=== PATIENT | female | born 1990 | race Caucasian/White ===

== ENCOUNTER 2019-12-28 15:07 | Emergency (ER) | payer OTHER, SELFPAY ==
[2019-12-28 15:30] VITALS: BP 150/92; PULSE 120; RESP 16; TEMP 36.3; O2SAT 99; BMI 31.0
[2019-12-28 16:15] LABS: Glucose Urine UA >=1000 MG/DL (NEG); Leukocyte Esterase Urine NEG (NEG); Nitrite Urine NEG (NEG); Urine Blood 2+ (NEG); Urine Ketones 15 MG/DL (NEG); Urine Protein 3+ MG/DL (NEG-TRACE)
[2019-12-28 16:24] LABS: Appearance Urine CLOUDY; Color Urine YELLOW
[2019-12-28 16:25] LABS: Bacteria Urine 2+ /LPF; RBC Urine 50-75 /HPF (0); Squamous Epithelial Cell Urine 3+ /LPF; UACC CULT YES; WBC Urine 30-49 /HPF (0-4)
[2019-12-28 16:26] LABS: UPreg QC Valid YES; Urine Pregnancy NEGATIVE (NEGATIVE)
--- NOTE | 2019-12-28 16:39 | ED_ITS ---
HPI - Back Pain/Injury General Chief Complaint: Back Pain/Injury Stated Complaint: back pain Time Seen by Provider: 12/28/19 16:37 Source: patient Mode of arrival: ambulatory Limitations: no limitations History of Present Illness HPI Narrative: patient presents to ED for chronic back pain exacerbation. Patient states pain is across lower back. Patient denies any injury, abdominal pain, nausea, vomiting, dysuria, hematuria, flank pain, fever, chills. Patient states also migraine exacerbation. MD elicited complaint: back pain Related Data Previous Rx's Medication Instructions Recorded naproxen 500 mg PO BID PRN #20 tab 12/28/19 Allergies Allergy/AdvReac Type Severity Reaction Status Date / Time morphine [MORPHINE] Allergy Severe ORAL Verified 12/28/19 15:29 SWELLING Review of Systems Constitutional: Constitutional: Reports as per HPI, Reports no additional constitutional complaints and Reports headache(s) ( History of migraine) Eyes: Eyes: Reports as per HPI and Reports no additional eye complaints ENT: Reports system reviewed and no additional complaints, except as documented, Reports as per HPI and Reports headache(s) ( History of migraine) Cardiovascular: Cardiovascular: Reports as per HPI and Reports no additional cardiovascular complaints Respiratory: Respiratory: Reports as per HPI and Reports no additional respiratory complaints Gastrointestinal: Gastrointestinal: Reports as per HPI and Reports no additional gastrointestinal complaints Genitourinary: Genitourinary: Reports no additional female genitourinary complaints and Reports as per HPI Musculoskeletal: Musculoskeletal: Reports no additional musculoskeletal complaints, Reports as per HPI and Reports back pain Neurologic: Reports system reviewed and no additional complaints, except as documented, Reports as per HPI and Reports headache(s) ( History of migraine) Psychiatric: Psychiatric: Reports no additional psychiatric complaints [facility] Past Medical History Medical History (Updated 12/28/19 @ 17:06 by JOVON Amaral) Back pain Blind right eye Diabetes HTN (hypertension) Social History Social History Smoking Status: Never smoker Use of substances other than those prescribed or required for medical reasons: No Advance Directives: No Advance Directives Information Provided: Yes Physical Exam Vital Signs: Vital Signs: Vital Signs Temp Pulse Resp BP Pulse Ox 12/28/19 17:10 115 H 17 100 12/28/19 15:30 97.4 F 120 H 16 150/92 H 99 Body Mass Index 31.0 Const: General: cooperative, healthy appearing, comfortable, no acute distress, well developed, alert and awake Orientation/consciousness: oriented to person, oriented to place, oriented to time and patient oriented x3 HENMT: Head: Yes normal to inspection and Yes No palpable skull fracture present Eyes: General: appearance normal, both eyes and all related structures Neck: Neck: Yes normal visual inspection and Yes full ROM Chest: Chest palpation & inspection: normal inspection of the chest, normal palpation of entire chest wall and no localized rib tenderness Resp: Effort & Inspection: normal respiratory effort and able to speak in complete sentences Cardio: Jugular venous distension: no JVD Heart sounds: S1 normal heart sound present and S2 normal heart sound present GI: Inspection: Yes normal to inspection and No abdominal wall ecchymosis Palpation (GI): Soft to palpation, not firm, nontender and no guarding Percussion: Yes normal to percussion Auscultation: normal bowel sounds : General: No CVA tenderness and Yes no CVA tenderness Back/Spine/Pelvis: Back: no CVA tenderness, No CVA tenderness and back tenderness ( positive for lumbar muscular tenderness on left and right side) Skin: General skin exam: no rashes or lesions noted Trauma: no lacerations or abrasions Neuro: General: oriented to person, oriented to place, oriented to time, patient oriented x3, gait normal and CN's II-XI intact bilaterally Cranial nerves: Yes CN's II-XII intact bilaterally Extrem: General: Yes normal to inspection and Yes full ROM Psych: Appearance: grossly normal, well kempt and not disheveled Course Course Course Narrative: patient will have UA ordered to rule out UTI. Reevaluation(s) Reevaluation #1: Patient urinalysis showed large amount of blood. Patient was questioned if she is on her menstruation or recently finished her menstruation, and patient denies being on her menstruation. patient states last menstruation was last month. Patient informed this may be kidney stones and will need CT scan abdomen and pelvis to rule out kidney stones, but patient refused and rather be discharged. Patient's plate risk of , sepsis, kidney failure and patient still signed against medical advice. Time: 17:03 MDM - Back Pain/Injury MDM Narrative Medical decision making narrative: back pain Lab Data Labs: Lab Results 12/28/19 Range/Units 16:06 Urine Color YELLOW Urine Appearance CLOUDY Urine pH 6.0 (5.0-8.0) Ur Specific [place] 1.020 (1.005-1.025) Urine Protein 3+ H (NEG-TRACE) MG/DL Urine Glucose (UA) >=1000 H (NEG) MG/DL Urine Ketones 15 (NEG) MG/DL Urine Blood 2+ H (NEG) Urine Nitrite NEG (NEG) Ur Leukocyte Esterase NEG (NEG) Urine RBC 50-75 H (0) /HPF Urine WBC 30-49 H (0-4) /HPF Ur Squamous Epith Cells 3+ /LPF Urine Bacteria 2+ /LPF Urine Test NEGATIVE (NEGATIVE) Discharge Plan Discharge Clinical Impression: Back pain, Migraine Patient Disposition: Left Against Medical Advice Instructions: Back Pain (ED) Additional Instructions: return to the ED immediately for worsening back pain, for pain, fever, chills, nausea, vomiting, hematuria, dysuria, or any other concerning symptoms. Prescriptions: New naproxen 500 mg tablet 500 mg PO BID PRN (Reason: pain) Qty: 20 RF: 0 Stand Alone Forms: Against Medical Advice Interventions: ED Discharge Assessment Last Done: 12/28/19 17:21 Discharge Date/Time: 12/28/19 17:23 Print Language: Divehi
[2019-12-28] MEDS: Ketorolac Tromethamine 60 MG/2 ML VIAL IM (16:47)
[2019-12-28 17:10] VITALS: PULSE 115; RESP 17; O2SAT 100
== END 2019-12-28 17:23 | disposition left against medical advice (07) ==
PROVIDERS: Physician Assistant; Emergency Provider Emergency Medicine
DX: M54.5 Low back pain (principal); G43.909 Migraine, unspecified, not intractable, without status migrainosus; I10 Essential (primary) hypertension; E11.9 Type 2 diabetes mellitus without complications; Z79.899 Other long term (current) drug therapy
CPT/HCPCS: 81001; 81025; 87086; 87088; 87147; 87186; 96372; 99284; J1885

== ENCOUNTER 2020-01-01 14:11 | Outpatient (RCR) | payer OTHER, SELFPAY | END 2020-02-17 08:00 | disposition home health service (06) | LOC: HO.WCC 14:11 | PROVIDERS: Visit Provider Surgery | DX: E10.621 Type 1 diabetes mellitus with foot ulcer (principal); L97.513 Non-pressure chronic ulcer of other part of right foot with necrosis of muscle; E10.65 Type 1 diabetes mellitus with hyperglycemia; Z79.4 Long term (current) use of insulin | CPT/HCPCS: 11043; 11046; 87071; 87147; 87205; 99213 ==

== ENCOUNTER → 2020-02-16 14:13 | Outpatient (BNVA) | payer OTHER, SELFPAY | PROVIDERS: Visit Provider Advanced Practice Midwife | DX: E11.65 Type 2 diabetes mellitus with hyperglycemia (principal); E11.319 Type 2 diabetes mellitus with unspecified diabetic retinopathy without macular edema; Z79.4 Long term (current) use of insulin; Z32.01 Encounter for pregnancy test, result positive; I10 Essential (primary) hypertension | CPT/HCPCS: 81025; 99212 ==

== ENCOUNTER 2020-03-01 14:22 | Inpatient (IN) | payer OTHER, SELFPAY ==
[2020-03-01 15:23] VITALS: BP 198/109; PULSE 110; RESP 19; TEMP 36.7; O2SAT 100; BMI 29.6
--- NOTE | 2020-03-01 15:42 | ED_ITS ---
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 She was admitted at [facility] for plantar foot wound in December and has not had issues with drainage from the toe until yesterday. She denies fever or chills. She states she feels like the foot is throbbing but does not have pain to her foot until nighttime. She is ambulating normally. She states her glucose has been ranging in the 200's, most recently was 61 and she had some juice. Old records reviewed from [facility] admission 01/01-01/07: right foot cellulitis s/p surgical debridement of wound with cultures +MRSA, no osteomyelitis changes on XR, left AMA and was given Rifampin & Bactrim on d/c with plan to f/u with [facility]. complaint: diabetic foot wound Onset (ago): day(s) (2) Location: upper extremity and lower extremity Radiation: non-radiation Severity: moderate Quality: other (throbbing) Pain Consistency: intermittent Relieving factors: none Exacerbating factors: none Associated symptoms: denies other symptoms Treatments prior to arrival: none Related Data Home Medications Medication Instructions Recorded Confirmed insulin lispro 100 unit/mL 0 unit SUBCUT TID 02/16/20 03/01/20 subcutaneous solution acetaminophen 2 tab PO Q6H PRN 03/01/20 03/01/20 albuterol sulfate 2 puff PO Q4-6H PRN 03/01/20 03/01/20 insulin detemir U-100 [Levemir 40 unit SUBCUT BEDTIME 03/01/20 03/01/20 FlexTouch U-100 Insuln] lisinopril 1 tab PO DAILY 03/01/20 03/01/20 Allergies Allergy/AdvReac Type Severity Reaction Status Date / Time morphine [MORPHINE] Allergy Severe ORAL Verified 02/16/20 14:35 SWELLING Review of Systems Review of Systems: Constitutional: No Fever, No Chills ENT/Mouth: No sore throat, No Rhinorrhea, No Swallowing Difficulty Eyes: No Eye Pain, No Swelling, No Redness Cardiovascular: No Chest Pain, No SOB, No Orthopnea, No Edema Respiratory: No Cough, No Sputum, No Wheezing, No dyspnea Gastrointestinal: No Nausea, No Vomiting, No Diarrhea, No abdominal Pain Genitourinary: No Dysuria, No Urinary Frequency, No Hematuria, No vaginal bleeding, No vaginal discharge. Musculoskeletal: + joint pain, No Myalgias Skin: No Skin Lesions, No rash Neuro: No Weakness, + Numbness, No Dizziness, + Headache (chronic migraines) Psych: + Anxiety/Panic, + Depression Heme/Lymph: No Bruising, No Lymphadenopathy Endocrine: No Polyuria, No Polydipsia PMFSH Past Medical History Attestation statement: The following information was validated with the patient. Medical History Asthma Back pain Blind right eye Depression with anxiety Diabetes Diabetic retinopathy Essential hypertension HTN (hypertension) test positive Type 2 diabetes mellitus with hyperglycemia, with long-term current use of insulin Social History Social History (Updated 02/16/20 @ 14:41 by Joshua Carranza [facility]) Alcohol intake: never Smoking Status: Never smoker Advance Directives: No Advance Directives Information Provided: No Gender identity: female Physical Exam Vital Signs: Vital Signs: Last Vital Signs Temp 98.1 F 03/01/20 15:23 Pulse 110 H 03/01/20 15:23 Resp 19 03/01/20 15:23 BP 169/95 H 03/01/20 16:19 Pulse Ox 100 03/01/20 15:23 Body Mass Index 29.6 Appearance: Alert. Oriented X3. No acute distress. Eyes: right eye haziness consistent with blindness history, ENT: Pharynx normal. Neck: Normal inspection. Neck supple. CVS: tachycardic, regular rhythm. Pulses normal. Respiratory: No respiratory distress. Breath sounds normal. Abdomen: somewhat firm and distended, non-tender. no gravid uterus palpable. +BS Skin: Skin warm and dry. Normal skin color. Normal skin turgor. No rashes. Extremities: right 2nd toe is swollen & tender with areas of blackened nectrotic tissue, yellow foul-smelling discharge from below the nailbed. 2 plantar foot wounds with clean bases. 1+ DP pulse, foot is warm, no sensory deficits. Left plantar aspect with white thickened boggy skin at metastarsal head, no discharge or bleeding. Neuro: Oriented X 3. Grossly normal. Ambulates with steady gait Course Course Course Narrative: 29 y/o , currently 8 weeks with poorly controlled DM1 & HTN presenting with toe necrosis and foul smelling odor that started yesterday. BP and HR elevated on arrival. Asymptomatic. Repeat BP improved to 160's without intervention. No fevers. High concern for osteomyelitis and sepsis. IVF and broad spectrum abx ordered - vanco/zosyn with hx MRSA. Patient initially refusing XR but eventually agreed after risks/benefits discussed. Will require admission. Patient is aware. Case was discussed with Dr. Noel - his biggest concern is glucose control with the acute infection. Pending results and workup for plan to admit here vs transfer to [facility] given high risk and complication risk. Reevaluation(s) Reevaluation #1: 4:45 XR shows changes concerning for osteomyelitis. Labs hemolyzed, will repeat. Signed out to Susy PEREZ who will assume care. Medical Decision Making Lab Data Result diagrams: 03/01/20 15:52 03/01/20 15:52 Labs: Lab Results 03/01/20 03/01/20 03/01/20 Range/Units 15:52 15:52 15:52 WBC 6.8 (4.8-10.8) X10*3/uL RBC 3.08 L (4.20-5.50) X10*6/uL Hgb 8.5 L (12.0-16.0) g/dl Hct 25.4 L (37-47) % MCV 82.5 (80-98) fL MCH 27.6 (27.0-33.0) pg MCHC 33.5 (31.0-35.0) g/dl RDW 12.5 (11.0-16.0) % Plt Count 294 (160-400) X10*3/uL MPV 11.3 (9.4-12.3) fL Immature Gran % (Auto) 0.9 H (0.0-0.4) % Neut % (Auto) 77.3 H (45-73) % Lymph % (Auto) 14.5 L (20-40) % [place] % (Auto) 6.2 (2-11) % Eos % (Auto) 1.0 (0-4) % Baso % (Auto) 0.1 (0-2) % Lymph # (Auto) 1.0 L (1.2-4.9) X10*3/uL [place] # (Auto) 0.4 (0.1-1.2) X10*3/uL Eos # (Auto) 0.1 (0.0-0.4) X10*3/uL Baso # (Auto) 0.0 (0.0-0.2) X10*3/uL Abs Immat Gran (auto) 0.06 H (0.00-0.03) X10*3/uL Absolute Neuts (auto) 5.2 (2.0-8.3) X10*3/uL Absolute Nucleated RBC 0.000 (0.0-0.012) X10*3/uL Nucleated RBC % (auto) 0.0 (0.0-0.2) /100WBC PT (10.8-13.0) SEC INR (0.9-1.1) Sodium Cancelled Potassium Cancelled Chloride Cancelled Carbon Dioxide Cancelled Anion Gap Cancelled BUN Cancelled Creatinine Cancelled Estim Creat Clear Calc Cancelled Estimated GFR Cancelled Random Glucose Cancelled Lactic Acid 0.9 (0.5-2.0) mmol/L Calcium Cancelled Magnesium Total Bilirubin Direct Bilirubin AST ALT Alkaline Phosphatase C-Reactive Protein Total Protein Albumin Beta HCG, Quant Cancelled Urine Color Urine Appearance Urine pH (5.0-8.0) Ur Specific [place] (1.005-1.025) Urine Protein (NEG-TRACE) MG/DL Urine Glucose (UA) (NEG) MG/DL Urine Ketones (NEG) MG/DL Urine Blood (NEG) Urine Nitrite (NEG) Ur Leukocyte Esterase (NEG) Urine RBC (0) /HPF Urine WBC (0-4) /HPF Ur Squamous Epith Cells /LPF Urine Bacteria /LPF Urine Test (NEGATIVE) COVID-19 (CARO) (Negative) COVID-19 Clin Com 03/01/20 03/01/2003/01/21 Range/Units 15:52 15:53 16:06 WBC (4.8-10.8) X10*3/uL RBC (4.20-5.50) X10*6/uL Hgb (12.0-16.0) g/dl Hct (37-47) % MCV (80-98) fL MCH (27.0-33.0) pg MCHC (31.0-35.0) g/dl RDW (11.0-16.0) % Plt Count (160-400) X10*3/uL MPV (9.4-12.3) fL Immature Gran % (Auto) (0.0-0.4) % Neut % (Auto) (45-73) % Lymph % (Auto) (20-40) % [place] % (Auto) (2-11) % Eos % (Auto) (0-4) % Baso % (Auto) (0-2) % Lymph # (Auto) (1.2-4.9) X10*3/uL [place] # (Auto) (0.1-1.2) X10*3/uL Eos # (Auto) (0.0-0.4) X10*3/uL Baso # (Auto) (0.0-0.2) X10*3/uL Abs Immat Gran (auto) (0.00-0.03) X10*3/uL Absolute Neuts (auto) (2.0-8.3) X10*3/uL Absolute Nucleated RBC (0.0-0.012) X10*3/uL Nucleated RBC % (auto) (0.0-0.2) /100WBC PT 12.5 (10.8-13.0) SEC INR 1.1 (0.9-1.1) Sodium Potassium Chloride Carbon Dioxide Anion Gap BUN Creatinine Estim Creat Clear Calc Estimated GFR Random Glucose Lactic Acid (0.5-2.0) mmol/L Calcium Magnesium Cancelled Total Bilirubin Cancelled Direct Bilirubin Cancelled AST Cancelled ALT Cancelled Alkaline Phosphatase Cancelled C-Reactive Protein Cancelled Total Protein Cancelled Albumin Cancelled Beta HCG, Quant Urine Color YELLOW Urine Appearance CLEAR Urine pH 6.5 (5.0-8.0) Ur Specific [place] 1.020 (1.005-1.025) Urine Protein 3+ H (NEG-TRACE) MG/DL Urine Glucose (UA) 100 H (NEG) MG/DL Urine Ketones NEG (NEG) MG/DL Urine Blood 3+ H (NEG) Urine Nitrite NEG (NEG) Ur Leukocyte Esterase NEG (NEG) Urine RBC 5-9 H (0) /HPF Urine WBC 0 (0-4) /HPF Ur Squamous Epith Cells 1+ /LPF Urine Bacteria 1+ /LPF Urine Test POSITIVE H (NEGATIVE) COVID-19 (CARO) (Negative) COVID-19 Clin Com 03/01/20 Range/Units 16:07 WBC (4.8-10.8) X10*3/uL RBC (4.20-5.50) X10*6/uL Hgb (12.0-16.0) g/dl Hct (37-47) % MCV (80-98) fL MCH (27.0-33.0) pg MCHC (31.0-35.0) g/dl RDW (11.0-16.0) % Plt Count (160-400) X10*3/uL MPV (9.4-12.3) fL Immature Gran % (Auto) (0.0-0.4) % Neut % (Auto) (45-73) % Lymph % (Auto) (20-40) % [place] % (Auto) (2-11) % Eos % (Auto) (0-4) % Baso % (Auto) (0-2) % Lymph # (Auto) (1.2-4.9) X10*3/uL [place] # (Auto) (0.1-1.2) X10*3/uL Eos # (Auto) (0.0-0.4) X10*3/uL Baso # (Auto) (0.0-0.2) X10*3/uL Abs Immat Gran (auto) (0.00-0.03) X10*3/uL Absolute Neuts (auto) (2.0-8.3) X10*3/uL Absolute Nucleated RBC (0.0-0.012) X10*3/uL Nucleated RBC % (auto) (0.0-0.2) /100WBC PT (10.8-13.0) SEC INR (0.9-1.1) Sodium Potassium Chloride Carbon Dioxide Anion Gap BUN Creatinine Estim Creat Clear Calc Estimated GFR Random Glucose Lactic Acid (0.5-2.0) mmol/L Calcium Magnesium Total Bilirubin Direct Bilirubin AST ALT Alkaline Phosphatase C-Reactive Protein Total Protein Albumin Beta HCG, Quant Urine Color Urine Appearance Urine pH (5.0-8.0) Ur Specific [place] (1.005-1.025) Urine Protein (NEG-TRACE) MG/DL Urine Glucose (UA) (NEG) MG/DL Urine Ketones (NEG) MG/DL Urine Blood (NEG) Urine Nitrite (NEG) Ur Leukocyte Esterase (NEG) Urine RBC (0) /HPF Urine WBC (0-4) /HPF Ur Squamous Epith Cells /LPF Urine Bacteria /LPF Urine Test (NEGATIVE) COVID-19 (CARO) Negative (Negative) COVID-19 Clin Com See Note Discharge Plan Discharge Clinical Impression: Osteomyelitis Qualifiers: Osteomyelitis type: unspecified type Osteomyelitis location: foot Laterality: right Qualified Code(s): M86.9 - Osteomyelitis, unspecified Prescriptions: No Action acetaminophen 500 mg tablet 2 tab PO Q6H PRN (Reason: Pain) RF: 0 lisinopril 5 mg tablet 1 tab PO DAILY RF: 0 albuterol sulfate 90 mcg/actuation HFA aerosol inhaler 2 puff PO Q4-6H PRN (Reason: Shortness Of Breath) RF: 0 Levemir FlexTouch U-100 Insuln 100 unit/mL (3 mL) insulin pen 40 unit subcut BEDTIME RF: 0 insulin lispro [Humalog U-100 Insulin] 100 unit/mL solution 0 unit subcut TID RF: 0
--- NOTE | 2020-03-01 15:48 | XR_ITS ---
EXAMINATION: XR FOOT, RIGHT CLINICAL INFORMATION: Worsening diabetic foot wound. Assess for osteomyelitis. COMPARISON: Previous x-ray September 2018 TECHNIQUE: AP, lateral, and oblique views of the right foot. FINDINGS: There is transmetatarsal amputation of the great toe. There is adjacent air in the soft tissues, some erosive changes and abnormal bone loss of the surgical margin questionable for osteomyelitis. There is amputation of the fifth toe. There is periarticular osteopenia at the third and fourth MTP joints. There is increasing irregularity of the fourth metatarsal head. Findings are questionable for osteomyelitis or septic arthritis as well. There are degenerative changes of the midfoot. There is a small amount of air seen adjacent to the medial second MTP joint. There is air seen in the plantar midfoot at the level of the metatarsal heads. There is diffuse soft tissue swelling of the midfoot. No radiopaque soft tissue foreign body is seen. XR/XR foot RT min 3V IMPRESSION: Postsurgical change following transmetatarsal amputation of the first toe. Adjacent air in the soft tissues and bone destruction and irregularity at the surgical margin of the remaining shaft of the first metatarsal bone questionable for osteomyelitis. Osteopenia at the third and fourth MTP joints and irregularity of the fourth metatarsal head questionable for septic arthritis/osteomyelitis. Postsurgical change following amputation of the fifth toe.
[2020-03-01 16:13] LABS: Basophils Percent Auto 0.1 % (0-2); Eosinophils Absolute Auto 0.1 X10*3/uL (0.0-0.4); Hematocrit 25.4 % (37-47); Hemoglobin 8.5 g/dl (12.0-16.0); Imm Gran Abs Auto 0.06 X10*3/uL (0.00-0.03); Imm Gran Pct Auto 0.9 % (0.0-0.4); Lymphocytes Percent Auto 14.5 % (20-40); MANUAL DIFF FLAG NO; Mean Corpuscular HGB Conc 33.5 g/dl (31.0-35.0); Mean Corpuscular Hemoglobin 27.6 pg (27.0-33.0); Mean Corpuscular Volume 82.5 fL (80-98); Mean Platelet Volume 11.3 fL (9.4-12.3); Monocytes Absolute Auto 0.4 X10*3/uL (0.1-1.2); Monocytes Percent Auto 6.2 % (2-11); Neutrophils Absolute Auto 5.2 X10*3/uL (2.0-8.3); Neutrophils Percent Auto 77.3 % (45-73); Platelet Count 294 X10*3/uL (160-400); Red Blood Count 3.08 X10*6/uL (4.20-5.50); Red Cell Distribution Width 12.5 % (11.0-16.0); White Blood Count 6.8 X10*3/uL (4.8-10.8)
[2020-03-01] MEDS: 0.9 % Sodium Chloride 1,000 ML 999 ML IVCONT (16:17)
[2020-03-01 16:19] VITALS: BP 169/95
[2020-03-01 16:19] LABS: Glucose Urine UA 100 MG/DL (NEG); Leukocyte Esterase Urine NEG (NEG); Nitrite Urine NEG (NEG); PH 6.5 (5.0-8.0); Urine Blood 3+ (NEG); Urine Ketones NEG (NEG); Urine Protein 3+ MG/DL (NEG-TRACE)
[2020-03-01 16:21] LABS: INTERNATIONAL NORM RATIO 1.1 (0.9-1.1); Prothrombin Time 12.5 SEC (10.8-13.0)
[2020-03-01 16:21] LABS: Appearance Urine CLEAR; Color Urine YELLOW; UPreg QC Valid YES; Urine Pregnancy POSITIVE (NEGATIVE)
[2020-03-01 16:29] LABS: Bacteria Urine 1+ /LPF; Squamous Epithelial Cell Urine 1+ /LPF; WBC Urine 0 /HPF (0-4)
[2020-03-01 16:30] LABS: Lactic Acid 0.9 mmol/L (0.5-2.0)
[2020-03-01 16:31] LABS: COVID-19 Test Negative (Negative)
[2020-03-01] MEDS: Piperacillin Sodium/Tazobactam 3.375 GM in 0.9 % Sodium Chloride 50 ML IV (17:14)
[2020-03-01 17:20] LABS: Estimated Average Glucose 258 mg/dL; Hemoglobin A1c % 10.6 %
[2020-03-01 17:23] VITALS: BP 165/98; PULSE 108; RESP 16; TEMP 37.1; O2SAT 100
--- NOTE | 2020-03-01 17:24 | PM.EVENT ---
Event Note Date of Service: 03/01/20 Event Note: Addendum to H and P by Mid-level Provider I saw and examined the patient and participated in the brian portion of the E/M service. I agree with the history and exam as documented by NUCLEAR MEDICINE SPECIALIST. Patient likely has osteomylitis of the foot due to diabetes. Will admit for IV Abx and vascular work up, [employer] eval. Otherwise, I agree with assessment and plan as outlined in the H and P. late entry note for 03/01/20
[2020-03-01] MEDS: vancomycin HCL 1,000 MG in 0.9 % Sodium Chloride 250 ML 270 MG IV (17:56)
--- NOTE | 2020-03-01 18:01 | PC.NURSE ---
ZOSYN COMPLETE. YAMILET 1GM FLORIDALMA.
[2020-03-01 18:32] LABS: Erythrocyte Sedimentation Rate 121 MM/HR (0-20)
--- NOTE | 2020-03-01 18:53 | P.HPHOSP_ITS ---
History of Present Illness Date of Service: 03/01/20 <Tawny Taylor NP - Last Filed: 03/01/20 20:35> Chief Complaint: Foot wound <Tawny Taylor NP - Last Filed: 03/01/20 20:35> 29-year-old woman, who is 8 weeks , presenting to the ER with complaints of worsening foot wound. She has a history of type 1 diabetes and chronic foot wounds with history of osteomyelitis and right foot transmetatarsal amputation. She has diabetic retinopathy, neuropathy, she is blind in the right eye. She reported [facility] however she has not been in about 3 weeks. She reports that she had taken off her socks and felt like her foot was malodorous and her told her that she had some black areas of discoloration on her toe lose and dorsal aspect of her right foot. She did have some clear drainage in the right foot with clear drainage and multiple areas of eschar. She has got 3 plantar wounds and what appears to be a fresh skin tear to the plantar aspect of her left foot. She denied fever, chills, nausea, vomiting, diarrhea. <Tawny Taylor NP - Last Filed: 03/01/20 20:35> Review of Systems Review of Systems: Denies any recent fever chills or decrease in appetite respiratory denies any shortness of breath coverage production cardiovascular is adjustment of any PND or edema gastrointestinal denies any dysphagia abdominal pain nausea vomiting or diarrhea genitourinary denies any dysuria frequency or hematuria neuropsych denies any weakness or seizures all other systems reviewed are negative <Tawny Taylor NP - Last Filed: 03/01/20 20:35> [facility] Medical History: Medical History Asthma Back pain Blind right eye Depression with anxiety Diabetes Diabetic retinopathy Essential hypertension HTN (hypertension) test positive Type 2 diabetes mellitus with hyperglycemia, with long-term current use of insulin <Tawny Taylor NP - Last Filed: 03/01/20 20:35> Family History: Family History Mother Coronary artery disease Myocardial infarction Stroke Diabetes mellitus Father Myocardial infarction <Tawny Taylor NP - Last Filed: 03/01/20 20:35> Surgical History: Surgical History History of transmetatarsal amputation of foot <Tawny Taylor NP - Last Filed: 03/01/20 20:35> Social History: Social History Household Members: Significant Other Housing: Apartment Alcohol intake: never Smoking Status: Never smoker service: No Gender identity: female <Tawny Taylor NP - Last Filed: 03/01/20 20:35> Meds Allergies/Adverse reactions: Allergies Allergy/AdvReac Type Severity Reaction Status Date / Time morphine [MORPHINE] Allergy Severe ORAL Verified 02/16/20 14:35 SWELLING <Tawny Taylor NP - Last Filed: 03/01/20 20:35> Home medications: Home Medications Medication Instructions Recorded Confirmed Type insulin lispro 100 unit/mL 0 unit SUBCUT TID 02/16/20 03/01/20 History subcutaneous solution acetaminophen 2 tab PO Q6H PRN 03/01/20 03/01/20 History albuterol sulfate 2 puff PO Q4-6H PRN 03/01/20 03/01/20 History insulin detemir U-100 [Levemir 40 unit SUBCUT BEDTIME 03/01/20 03/01/20 History FlexTouch U-100 Insuln] lisinopril 1 tab PO DAILY 03/01/20 03/01/20 History <Tawny Taylor NP - Last Filed: 03/01/20 20:35> Physical Exam Vital Signs and Narrative: Vital Signs: Last Vital Signs Temp 98.7 F 03/01/20 17:23 Pulse 108 H 03/01/20 17:23 Resp 16 03/01/20 17:23 BP 165/98 H 03/01/20 17:23 Pulse Ox 100 03/01/20 17:23 Body Mass Index 29.6 <Tawny Taylor NP - Last Filed: 03/01/20 20:35> Appearing in no acute distress head is normocephalic atraumatic lung sounds normal expansion heart regular rate rhythm abdomen is soft, nontender neuro patient is alert x3, no focal deficits <Tawny Taylor NP - Last Filed: 03/01/20 20:35> Results Labs CBC and Chem 7: : 03/02/20 09:06 03/02/20 09:06 <Tawny Taylor, P[employer]ER - Last Filed: 03/01/20 20:35> Labs: Laboratory Results - last 24 hr 03/01/20 03/01/20 03/01/20 15:52 15:52 15:52 MCV 82.5 MCH 27.6 MCHC 33.5 RDW 12.5 Plt Count 294 MPV 11.3 Immature Gran % (Auto) 0.9 H Neut % (Auto) 77.3 H Lymph % (Auto) 14.5 L [place] % (Auto) 6.2 Eos % (Auto) 1.0 Baso % (Auto) 0.1 Lymph # (Auto) 1.0 L [place] # (Auto) 0.4 Eos # (Auto) 0.1 Baso # (Auto) 0.0 Abs Immat Gran (auto) 0.06 H Absolute Neuts (auto) 5.2 Absolute Nucleated RBC 0.000 Nucleated RBC % (auto) 0.0 ESR PT INR Anion Gap Cancelled Estim Creat Clear Calc Cancelled Estimated GFR Cancelled Random Glucose Cancelled Estimat Average Glucose Hemoglobin A1c % Lactic Acid 0.9 Calcium Cancelled Magnesium Total Bilirubin Direct Bilirubin AST ALT Alkaline Phosphatase C-Reactive Protein Total Protein Albumin Beta HCG, Quant Cancelled Urine Color Urine Appearance Urine pH Ur Specific [place] Urine Protein Urine Glucose (UA) Urine Ketones Urine Blood Urine Nitrite Ur Leukocyte Esterase Urine RBC Urine WBC Ur Squamous Epith Cells Urine Bacteria Urine Test COVID-19 (CARO) COVID-19 Clin Com 03/01/20 03/01/20 03/01/20 15:52 15:52 15:53 MCV MCH MCHC RDW Plt Count MPV Immature Gran % (Auto) Neut % (Auto) Lymph % (Auto) [place] % (Auto) Eos % (Auto) Baso % (Auto) Lymph # (Auto) [place] # (Auto) Eos # (Auto) Baso # (Auto) Abs Immat Gran (auto) Absolute Neuts (auto) Absolute Nucleated RBC Nucleated RBC % (auto) ESR 121 H PT 12.5 INR 1.1 Anion Gap Estim Creat Clear Calc Estimated GFR Random Glucose Estimat Average Glucose Hemoglobin A1c % Lactic Acid Calcium Magnesium Cancelled Total Bilirubin Cancelled Direct Bilirubin Cancelled AST Cancelled ALT Cancelled Alkaline Phosphatase Cancelled C-Reactive Protein Cancelled Total Protein Cancelled Albumin Cancelled Beta HCG, Quant Urine Color Urine Appearance Urine pH Ur Specific [place] Urine Protein Urine Glucose (UA) Urine Ketones Urine Blood Urine Nitrite Ur Leukocyte Esterase Urine RBC Urine WBC Ur Squamous Epith Cells Urine Bacteria Urine Test COVID-19 (CARO) COVID-19 Clin Com 03/01/20 03/01/20 03/01/20 16:06 16:07 16:42 MCV MCH MCHC RDW Plt Count MPV Immature Gran % (Auto) Neut % (Auto) Lymph % (Auto) [place] % (Auto) Eos % (Auto) Baso % (Auto) Lymph # (Auto) [place] # (Auto) Eos # (Auto) Baso # (Auto) Abs Immat Gran (auto) Absolute Neuts (auto) Absolute Nucleated RBC Nucleated RBC % (auto) ESR PT INR Anion Gap Estim Creat Clear Calc Estimated GFR Random Glucose Estimat Average Glucose 258 Hemoglobin A1c % 10.6 Lactic Acid Calcium Magnesium Total Bilirubin Direct Bilirubin AST ALT Alkaline Phosphatase C-Reactive Protein Total Protein Albumin Beta HCG, Quant Urine Color YELLOW Urine Appearance CLEAR Urine pH 6.5 Ur Specific [place] 1.020 Urine Protein 3+ H Urine Glucose (UA) 100 H Urine Ketones NEG Urine Blood 3+ H Urine Nitrite NEG Ur Leukocyte Esterase NEG Urine RBC 5-9 H Urine WBC 0 Ur Squamous Epith Cells 1+ Urine Bacteria 1+ Urine Test POSITIVE H COVID-19 (CARO) Negative COVID-19 Clin Com See Note <Tawny Taylor NP - Last Filed: 03/01/20 20:35> Imaging Radiologist's Impressions: Impressions Foot X-Ray 03/01/20 15:48 IMPRESSION: Postsurgical change following transmetatarsal amputation of the first toe. Adjacent air in the soft tissues and bone destruction and irregularity at the surgical margin of the remaining shaft of the first metatarsal bone questionable for osteomyelitis. Osteopenia at the third and fourth MTP joints and irregularity of the fourth metatarsal head questionable for septic arthritis/osteomyelitis. Postsurgical change following amputation of the fifth toe. <Tawny Taylor NP - Last Filed: 03/01/20 20:35> Assessment and Plan (1) Osteomyelitis: Qualifiers: Laterality: right Osteomyelitis location: foot Osteomyelitis type: unspecified type Qualified Code(s): M86.9 - Osteomyelitis, unspecified <Tawny Taylor NP - Last Filed: 03/01/20 20:35> Problem details: She has infected second toe,osteomyelitis concern She is also <Tawny Taylor NP - Last Filed: 03/01/20 20:35> Status: Acute <Tawny Taylor NP - Last Filed: 03/01/20 20:35> 29-year-old woman, who is 8 weeks admitted with likely osteomyelitis with history of type 1 diabetes. Osteomyelitis. Vancomycin and zosyn. ID consult. Vascular surgery consult. Follow cultures. Diabetes. Sliding scale, long acting insulin. Asthma. Albuterol as needed. Hypertension. Stable. Continue Lisinopril. DVT prophylaxis with mechanical compression boots. Discussed with Dr. Blanton Full code. <Tawny Taylor NP - Last Filed: 03/01/20 20:35>
[2020-03-01 20:22] VITALS: BP 123/64; PULSE 104; RESP 17; TEMP 36.9; O2SAT 99
--- NOTE | 2020-03-01 20:30 | PC.NURSE ---
VITALS CHANGED TO Q SHIFT BY HOSPITALIST.
[2020-03-01 20:43] LABS: Alanine Aminotransferase 13 U/L (0-31); Albumin Level 2.2 g/dL (3.5-5.0); Alkaline Phosphatase 136 U/L (39-117); Aspartate Amino Transferase 18 U/L (5-31); Bilirubin Direct < 0.2 mg/dL (0.0-0.5); Bilirubin Total < 0.2 mg/dL (0.0-1.0); Magnesium 1.9 mg/dL (1.6-2.6); Total Protein 5.3 g/dL (6.5-8.0)
[2020-03-01 20:49] LABS: Anion Gap 9 (12-20); Blood Urea Nitrogen 19 mg/dL (9-16); C Reactive Protein 7.83 mg/dL (< or = 0.50); Carbon Dioxide 25 mmol/L (22-29); Chloride 106 mmol/L (96-108); Creatinine Clr Calc Pharmacy 111.8; Estimated Glomerular Filt Rate > 60; Glucose Random 131 mg/dL (60-115); Magnesium 1.9 mg/dL (1.6-2.6); Potassium 3.7 mmol/l (3.3-5.1); Sodium 136 mmol/L (135-145)
[2020-03-01 20:55] LABS: HCG Quantitative 4739 mIU/mL
[2020-03-01] MEDS: Acetaminophen 325 MG TABLET 650 MG PO (20:55)
[2020-03-01 21:29] LABS: Glucose, Whole Blood 125 mg/dL (60-115)
[2020-03-01] MEDS: Insulin Glargine,Hum.rec.anlog 100 UNIT/ML 10 ML VIAL 28 UNIT SUBCUT (22:16)
[2020-03-02] VITALS (7 sets, daily range): BP systolic 134–177; BP diastolic 71–87; PULSE 99–109; RESP 15–19; TEMP 36.2–36.9; O2SAT 95–100
--- NOTE | 2020-03-02 | US_ITS ---
EXAMINATION: FIRST TRIMESTER OB ULTRASOUND CLINICAL INFORMATION: Vaginal bleeding COMPARISON: None TECHNIQUE: Transabdominal first trimester OB ultrasound FINDINGS: The uterus measures 10 x 6.5 x 7.2 cm in length. There is an intrauterine gestational sac. [place]ack-rump length measures 0.2 cm suggesting gestational age of 5 weeks 6 days with estimated date of delivery of 10/27/2020. This is significantly behind date from LMP. There is a low heart rate of 60 bpm. There is a yolk sac. There are nabothian cysts in the cervix. The right maternal ovary is slightly enlarged, measures 4 x 2.4 x 5.6 cm and contains a 1.6 x 1.8 x 1.9 cm complex cyst with thick wall probably representing a corpus luteum. The left ovary measures 2.9 x 1.9 x 3.1 cm and is normal-appearing. There is a small amount of fluid in the pelvis. US/US OB <= 14 weeks fetus IMPRESSION: Single viable intrauterine . From today's measurements, gestational age is estimated at 5 weeks 6 days with estimated date of delivery of 10/27/2020. There is a low heart rate of 60 bpm. Slightly enlarged right ovary with 1.8 x 1.6 x 1.9 cm complex cyst probably representing a corpus luteum and small amount of fluid in the pelvis.
--- NOTE | 2020-03-02 | US_ITS ---
EXAMINATION: Transabdominal and transvaginal first trimester OB ultrasound. Transvaginal exam was performed for better visualization of the gestational sac. Please see transabdominal report for findings. EXAMINATION: NONINVASIVE ASSESSMENT OF THE ARTERIES OF BOTH LOWER EXTREMITIES WITH PVR EXAM AND BILATERAL LOWER EXTREMITY DUPLEX CLINICAL INFORMATION: Nonhealing ulcer TECHNIQUE: Ankle pulse volume recordings, ankle pressure measurements and ankle brachial indices were obtained of the lower extremity arterial system bilaterally in addition to duplex Doppler techniques with wave form analysis and measurement of velocities in the common femoral, profunda femoral, superficial femoral, popliteal and tibial arteries. The study was performed only at rest. COMPARISON: None FINDINGS: a) AT REST: RIGHT LE. The right ankle-brachial index is: 1.2 2. Right ankle pressure: normal. 3. Right ankle PVR waveform: normal. 4. Right direct duplex Doppler findings: Normal * Common femoral artery: 142 cm/s, Diastolic flow reversal: Yes * Superficial femoral artery (proximal, mid, distal): 115, 137 and 111 cm/s, Diastolic flow reversal: Yes * Popliteal artery: 108 cm/s, Diastolic flow reversal: Yes * Posterior tibial artery: 112 cm/s, Diastolic flow reversal: Yes LEFT LE. The left ankle-brachial index is: 1.1 2. Left ankle pressure: normal. 3. Left ankle PVR waveform: normal. 4. Left direct duplex Doppler findings: Turbulent flow in the left popliteal artery. * Common femoral artery: 131 cm/s, Diastolic flow reversal: Yes * Superficial femoral artery (proximal, mid, distal): 99, 121 and 127 cm/s, Diastolic flow reversal: Yes * Popliteal artery: 135 cm/s, Diastolic flow reversal: Yes * Posterior tibial artery: 109 cm/s, Diastolic flow reversal: Yes MAYA Reference: * >0.97-1.25 = normal - no significant arterial disease * 0.75-0.96 = mild peripheral arterial disease * 0.5-0.74 = moderate peripheral arterial disease * <0.50 = severe peripheral arterial disease There is bilateral inguinal lymphadenopathy. US/US arterial duplex LE BI IMPRESSION: There is no evidence of any hemodynamically significant lower extremity arterial disease by pressure, waveform or duplex Doppler criteria at rest. The right MAYA is 1.2 and the left MAYA is 1.1.
--- NOTE | 2020-03-02 01:12 | PC.NURSE ---
REPORT GIVEN TO ALICE BETH
[2020-03-02] MEDS: vancomycin HCL 1,000 MG in 0.9 % Sodium Chloride 250 ML 270 MG IV ×2 (07:17→18:41)
[2020-03-02] MEDS: Acetaminophen 325 MG TABLET 650 MG PO (07:20)
[2020-03-02] MEDS: ondansetron HCL 4 MG/2 ML VIAL IVPUSH (07:21)
--- NOTE | 2020-03-02 08:10 | PC.NURSE ---
nurse to nurse given to foster (rn), pt aware of plan of care for admission to hosp.
[2020-03-02 08:51] LABS: Glucose, Whole Blood 110 mg/dL (60-115)
[2020-03-02] MEDS: 0.9 % Sodium Chloride Flush 3 ML SYRINGE IVFLUSH ×3 (08:56→22:03)
[2020-03-02] MEDS: lisinopriL 5 MG TABLET PO (08:56)
[2020-03-02 09:25] LABS: MANUAL DIFF FLAG NO
[2020-03-02 09:29] LABS: Basophils Percent Auto 0.2 % (0-2); Eosinophils Absolute Auto 0.1 X10*3/uL (0.0-0.4); Eosinophils Percent Auto 1.7 % (0-4); Hemoglobin 7.3 g/dl (12.0-16.0); Imm Gran Abs Auto 0.02 X10*3/uL (0.00-0.03); Imm Gran Pct Auto 0.3 % (0.0-0.4); Lymphocytes Absolute Auto 0.8 X10*3/uL (1.2-4.9); Lymphocytes Percent Auto 12.6 % (20-40); Mean Corpuscular HGB Conc 33.2 g/dl (31.0-35.0); Mean Corpuscular Hemoglobin 27.2 pg (27.0-33.0); Mean Corpuscular Volume 82.1 fL (80-98); Mean Platelet Volume 10.8 fL (9.4-12.3); Monocytes Absolute Auto 0.5 X10*3/uL (0.1-1.2); Monocytes Percent Auto 7.5 % (2-11); Neutrophils Absolute Auto 4.7 X10*3/uL (2.0-8.3); Neutrophils Percent Auto 77.7 % (45-73); Platelet Count 237 X10*3/uL (160-400); Red Blood Count 2.68 X10*6/uL (4.20-5.50); Red Cell Distribution Width 12.6 % (11.0-16.0)
[2020-03-02 09:57] LABS: Anion Gap 10 (12-20); Blood Urea Nitrogen 17 mg/dL (9-16); Carbon Dioxide 22 mmol/L (22-29); Chloride 106 mmol/L (96-108); Estimated Glomerular Filt Rate > 60; Glucose Random 113 mg/dL (60-115); Potassium 3.9 mmol/l (3.3-5.1); Sodium 134 mmol/L (135-145)
[2020-03-02] MEDS: Piperacillin Sodium/Tazobactam 3.375 GM in 0.9 % Sodium Chloride 50 ML IV ×3 (10:03→22:02)
[2020-03-02 10:11] LABS: Calcium 7.1 mg/dL (8.4-10.2)
--- NOTE | 2020-03-02 10:18 | P.PNIM_ITS ---
Subjective Subjective Date of Service: 03/02/20 Interval History: Seen in f/u for diabetic foot ulcer/cellulitis..No change. Nursing report vaginal bleeding when she wipes, she is 8 week pregant Review of Systems no fever no pain in foot vaginal bleeding Physical Exam Vital Signs: Vital Signs: Last Vital Signs Temp 97.6 F 03/02/20 08:00 Pulse 99 03/02/20 08:56 Resp 18 03/02/20 08:00 BP 134/75 03/02/20 08:56 Pulse Ox 98 03/02/20 08:00 Body Mass Index 29.6 Const: General: cooperative and comfortable Resp: Effort & Inspection: normal respiratory effort and able to speak in complete sentences Cardio: Rate: regular rate Heart sounds: S1 normal heart sound present and S2 normal heart sound present Skin: Other: Diabetic foot ulcers--See Imagges from H and P of 03/01 Objective Data Current Medications Generic Name Dose Route Start Last Admin Trade Name Freq PRN Reason Stop Dose Admin Acetaminophen 650 mg 03/01/20 20:03 03/02/20 07:20 Acetaminophen 325 Mg Tablet PO 650 mg Q6H PRN Administration Pain, Mild (Pain Scale 1-3) Vancomycin HCl 1,000 mg/ 270 mls @ 270 mls/hr 03/02/20 06:00 03/02/20 09:46 Sodium Chloride IV Infused Q12H VASILE Infusion Piperacillin Sod/Tazobactam 50 mls @ 100 mls/hr 03/02/20 09:00 03/02/20 10:03 Sod 3.375 gm/ Sodium Chloride IV 100 mls/hr Q8H VASILE Administration Insulin Glargine 28 unit 03/02/20 21:00 03/01/20 22:16 Insulin Glargine,Hum.Rec.Anlog 100 Unit/Ml 10 Ml Vial SUBCUT 28 unit BEDTIME VASILE Administration Insulin Human Lispro 0 unit 03/02/20 08:01 03/02/20 09:43 Insulin Lispro 100 Unit/Ml 3 Ml Vial SUBCUT Not Given QIDACHS [facility] Protocol Lisinopril 5 mg 03/02/20 09:00 03/02/20 08:56 Lisinopril 5 Mg Tablet PO 5 mg DAILY VASILE Administration Protocol Ondansetron HCl 4 mg 03/01/20 20:03 03/02/20 07:21 Ondansetron Hcl 4 Mg/2 Ml Vial IVPUSH 4 mg Q8H PRN Administration Nausea and Vomiting Pharmacy Consult 1 each 03/01/20 15:37 Consult Rx Perform Med Rec MISCELLANE ONCE PRN Consult order Pharmacy Consult 1 each 03/01/20 15:37 Consult Rx Vancomycin Dosing MISCELLANE DAILY PRN Consult order Sodium Chloride 3 ml 03/02/20 00:00 03/02/20 08:56 0.9 % Sodium Chloride Flush 3 Ml Syringe IVFLUSH 3 ml QSHIFT VASILE Administration Labs CBC & Chem 7: 03/02/20 09:06 03/02/20 09:06 Microbiology Microbiology Results: Microbiology 03/01/20 16:23 Toe Right Second Routine Culture - Preliminary Culture in progress. Assessment and Plan (1) Osteomyelitis: Status: Acute Assessment and Plan: 29-year-old woman, who is 8 weeks admitted with likely osteomyelitis with history of type 1 diabetes. Diabetic foot ulcer/Osteomyelitis. -Vancomycin and zosyn. -ID consult. -Vascular surgery consult. Follow cultures. Diabetes. Sliding scale, long acting insulin. Asthma. Albuterol as needed. Hypertension. Stable. Continue Lisinopril. Anemia--likely anemia of chronic disease, sligth drop will keep eye on it. ? Vag bleeding/8 month --PATIENT ACCOUNTS SPECIALIST consult DVT prophylaxis with mechanical compression boots.
--- NOTE | 2020-03-02 10:44 | P.EN_ITS ---
Event Note Date of Service: 03/02/20 Event Note: Full consult dictated. Patient will need transmetatarsal amputati on. Await noninvasive arterial testing and OB evaluation.
--- NOTE | 2020-03-02 10:44 | PM.EVENT ---
Event Note Date of Service: 03/02/20 Event Note: Full consult dictated. Patient will need transmetatarsal amputation. Await noninvasive arterial testing and OB evaluation.
--- NOTE | 2020-03-02 10:59 | MHC.CLN ---
will start Kike and Glucerna BID to support wound healing
--- NOTE | 2020-03-02 11:19 | PC.NURSE ---
0940- Pt noted to having small amount of vaginal bleeding. Blood noted when wiped, and visible in toilet. Dr. Balnton made aware. OB consult placed. Awaiting consult. Will continue to monitor.
--- NOTE | 2020-03-02 11:41 | CONS_ITS ---
DATE OF SERVICE: 03/02/2020 REASON FOR CONSULTATION: Nonhealing right foot wound. HISTORY OF PRESENT ILLNESS: A 29-year-old woman 8 weeks , who is an uncontrolled diabetic, has had multiple amputations. She reports that [facility] and she has not followed up in approximately 3 weeks. She reports that she had taken off her socks, had a malodorous discharge. She now presents for vascular evaluation. PAST MEDICAL HISTORY: Significant for asthma, back pain, blind right eye, depression, diabetes, diabetic retinopathy, hypertension, and . PAST SURGICAL HISTORY: Includes transmetatarsal amputation. MEDICATIONS: Medication list was reviewed. ALLERGIES: MORPHINE. SOCIAL HISTORY: Socially nonsmoker, nondrinker, but is an uncontrolled diabetic. PHYSICAL EXAMINATION: GENERAL: Afebrile. VITAL SIGNS: Stable. HEAD AND NECK: Demonstrates no bruits. CHEST: Moving air bilaterally. CARDIAC: Positive S1-S2. ABDOMEN: Soft. EXTREMITIES: Upper extremities have good radial and ulnar pulses. Lower extremities are warm with good capillary refill. Right foot, great toe and 5th toe have been amputated. The 2nd toe has a boggy appearance to it and the 3rd toe has a nonhealing ulcer with that as well. IMPRESSION: Nonhealing right lower extremity diabetic foot ulceration. We would plan for noninvasive arterial testing. In addition, I do not think this is viable and in the interest of her current , I do think the best course of action will be a transmetatarsal amputation. I have taken the liberty of ordering noninvasive arterial testing. In addition, it may be helpful to get an OB evaluation prior to any intervention. Thank you for allowing us to assist in her care. If there are any questions or concerns, please do not hesitate to contact us. Sincerely,. MD ALBINO Barrera/PAULINA / [phone]
[2020-03-02 11:42] LABS: Glucose, Whole Blood 104 mg/dL (60-115)
[2020-03-02] MEDS: Folic Acid 1 MG TABLET 4 MG PO (12:30)
--- NOTE | 2020-03-02 15:20 | W.PM.IDCN ---
History of Present Illness Data of Consult Service Date: 03/02/20 Primary Care Provider: [facility] Reason for consult: diabetic foot infection She presents with worsening right foot discomfort over last week She has worsening second and third toe redness and swelling. She has not good sensation She has no fever or chills. She has had amputation first ,fourth,fifth digit Review of Systems Review of Systems: Yes all other systems are reviewed and are negative [facility] Past Medical History Medical History Asthma Back pain Blind right eye Depression with anxiety Diabetes Diabetic retinopathy Essential hypertension HTN (hypertension) test positive Type 2 diabetes mellitus with hyperglycemia, with long-term current use of insulin Family History Family History Mother Coronary artery disease Myocardial infarction Stroke Diabetes mellitus Father Myocardial infarction Surgical History Surgical History History of transmetatarsal amputation of foot Social History Social History Household Members: Significant Other Household Members Other:: Sister, [id number], nephew Housing: Apartment Do you presently have visiting nurse or other home services: No Alcohol intake: never Smoking Status: Never smoker Use of substances other than those prescribed or required for medical reasons: No Currently Displaying Signs/Symptoms of Drug Intoxication Withdrawal: No Have you been hit, kicked, punched, or otherwise hurt by someone within the past year? If so, by whom?: No Do you feel safe in your current relationship?: Yes Is there a partner from a previous relationship who is making you feel unsafe now?: No Are you made to feel afraid or neglected: No Advance Directives: No Advance Directives Information Provided: No Advance Directives on File: No Do you have thoughts of harming others: None Do you have a plan to hurt others: No Plan Recently lost weight without trying: No Gender identity: female Meds Allergies Allergy/AdvReac Type Severity Reaction Status Date / Time morphine [MORPHINE] Allergy Severe ORAL Verified 02/16/20 14:35 SWELLING Home Medications Medication Instructions Recorded Confirmed Type insulin lispro 100 unit/mL 0 unit SUBCUT TID 02/16/20 03/01/20 History subcutaneous solution acetaminophen 2 tab PO Q6H PRN 03/01/20 03/01/20 History albuterol sulfate 2 puff PO Q4-6H PRN 03/01/20 03/01/20 History insulin detemir U-100 [Levemir 40 unit SUBCUT BEDTIME 03/01/20 03/01/20 History FlexTouch U-100 Insuln] lisinopril 1 tab PO DAILY 03/01/20 03/01/20 History Physical Exam Vital Signs: Vital Signs: Last Vital Signs Temp 97.1 F 03/02/20 11:09 Pulse 100 03/02/20 11:09 Resp 18 03/02/20 11:09 BP 135/79 03/02/20 11:09 Pulse Ox 100 03/02/20 11:09 Body Mass Index 29.6 Const: General: cooperative HENMT: Head: Yes normal to inspection Mouth: Normal oral and palatal mucosa present Eyes: General: appearance normal, both eyes and all related structures Resp: Effort & Inspection: normal respiratory effort Auscultation: clear to auscultation bilaterally Cardio: Rate: regular rate Rhythm: regular rhythm GI: Inspection: Yes normal to inspection : General: Yes no CVA tenderness Back/Spine/Pelvis: Back: no CVA tenderness Skin: General skin exam: no rashes or lesions noted Extrem: General: Yes normal to inspection Assessment and Plan (1) Osteomyelitis: Qualifiers: Laterality: right Osteomyelitis location: foot Osteomyelitis type: unspecified type Qualified Code(s): M86.9 - Osteomyelitis, unspecified Problem details: She has infected second toe,osteomyelitis concern She is also Status: Acute Would continue antibiotics for now Would agree with amputation as especially with and even if not would be more effective and curative than group home IV antibiotics (2) test positive: Problem details: Being seen by Insulation Applicator Status: Acute (3) Type 2 diabetes mellitus with hyperglycemia, with long-term current use of insulin: Problem details: ( vs Type 1) Status: Acute Results Labs CBC & Chem 7: 03/02/20 09:06 03/02/20 09:06 Labs: Short CBC 03/01/20 03/02/20 Range/Units 15:52 09:06 WBC 6.8 6.0 (4.8-10.8) X10*3/uL Hgb 8.5 L 7.3 L (12.0-16.0) g/dl Hct 25.4 L 22.0 L (37-47) % Plt Count 294 237 (160-400) X10*3/uL BMP 03/01/20 03/01/20 03/01/20 15:52 19:47 19:48 Sodium Cancelled Cancelled 136 Potassium Cancelled Cancelled 3.7 Chloride Cancelled Cancelled 106 Carbon Dioxide Cancelled Cancelled 25 BUN Cancelled Cancelled 19 H Creatinine Cancelled Cancelled 0.82 Calcium Cancelled Cancelled 7.0 L 03/02/20 09:06 Sodium 134 L Potassium 3.9 Chloride 106 Carbon Dioxide 22 BUN 17 H Creatinine 0.79 Calcium 7.1 L Liver Function 03/01/20 03/01/20 03/01/20 Range/Units 15:53 19:47 19:47 Total Bilirubin Cancelled Cancelled < 0.2 Direct Bilirubin Cancelled Cancelled < 0.2 AST Cancelled Cancelled 18 ALT Cancelled Cancelled 13 Alkaline Phosphatase Cancelled Cancelled 136 H Albumin Cancelled Cancelled 2.2 L Urine 03/01/20 Range/Units 16:06 Urine Color YELLOW Urine Appearance CLEAR Urine pH 6.5 (5.0-8.0) Ur Specific [place] 1.020 (1.005-1.025) Urine Protein 3+ H (NEG-TRACE) MG/DL Urine Glucose (UA) 100 H (NEG) MG/DL Microbiology Microbiology Results: Microbiology 03/01/20 16:23 Toe Right Second Gram Stain - Final 03/01/20 16:23 Toe Right Second Routine Culture - Preliminary Culture in progress.
[2020-03-02 16:04] LABS: Glucose, Whole Blood 130 mg/dL (60-115)
[2020-03-02] MEDS: Ferrous Sulfate 324 MG TABLET.DR 325 MG PO (16:26)
--- NOTE | 2020-03-02 19:11 | P.CONOB_ITS ---
CORE SHAPER - CN: HPI Data of Consult Consult date: 03/02/20 Requesting Physician: Contreras Blanton MD Primary Care Provider: [facility] Consult Narrative Narrative: Shereen Taylor is a 29 year old female with PMH significant for poorly controlled T1D (A1c 10.6) complicated by diabetic retinopathy, s/p toe amputation, currently admitted for osteomyelitis. She is currently with a sure LMP of 01/05/20, putting her at 8 1/7wks GA today with an estimated XENA of 10/11/20. She reports regular periods roughly every four weeks. She has had some nausea in this so far but denies vomiting. She has not had any bleeding until today, when she noted light pink only on the toilet paper after wiping. She denies any pelvic cramping. She is not taking vitamins as she is unable to swallow large pills. She denies having been previously diagnos ed with anemia. She denies having been previously diagnosed with any kidney problems related to her diabetes. cc:: CC: Contreras Blanton MD OB [facility] Past Medical History Medical History Asthma Back pain Blind right eye Depression with anxiety Diabetes Diabetic retinopathy Essential hypertension HTN (hypertension) test positive Type 2 diabetes mellitus with hyperglycemia, with long-term current use of insulin Family History Family History Mother Coronary artery disease Myocardial infarction Stroke Diabetes mellitus Father Myocardial infarction Surgical History Surgical History History of transmetatarsal amputation of foot Social History Social History Household Members: Significant Other Household Members Other:: Sister, [id number], nephew Housing: Apartment Do you presently have visiting nurse or other home services: No Alcohol intake: never Smoking Status: Never smoker Use of substances other than those prescribed or required for medical reasons: No Currently Displaying Signs/Symptoms of Drug Intoxication Withdrawal: No Have you been hit, kicked, punched, or otherwise hurt by someone within the past year? If so, by whom?: No Do you feel safe in your current relationship?: Yes Is there a partner from a previous relationship who is making you feel unsafe now?: No Are you made to feel afraid or neglected: No Advance Directives: No Advance Directives Information Provided: No Advance Directives on File: No Do you have thoughts of harming others: None Do you have a plan to hurt others: No Plan Recently lost weight without trying: No Gender identity: female Meds Allergies Allergy/AdvReac Type Severity Reaction Status Date / Time morphine [MORPHINE] Allergy Severe ORAL Verified 02/16/20 14:35 SWELLING Home Medications Medication Instructions Recorded Confirmed Type insulin lispro 100 unit/mL 0 unit SUBCUT TID 02/16/20 03/01/20 History subcutaneous solution acetaminophen 2 tab PO Q6H PRN 03/01/20 03/01/20 History albuterol sulfate 2 puff PO Q4-6H PRN 03/01/20 03/01/20 History insulin detemir U-100 [Levemir 40 unit SUBCUT BEDTIME 03/01/20 03/01/20 History FlexTouch U-100 Insuln] lisinopril 1 tab PO DAILY 03/01/20 03/01/20 History CORE SHAPER Physical Exam Vitals Vital signs: Temp Pulse Resp BP Pulse Ox 97.2 F 104 H 18 174/84 H 100 03/02/20 16:00 03/02/20 16:00 03/02/20 16:00 03/02/20 16:00 03/02/20 16:00 Body Mass Index 29.6 Constitutional General Appearance: Overweight Psychiatric Orientation: to time, to place and to person Mood and Affect: active and alert Lungs Respiratory Effort: No accessory muscle usage CORE SHAPER - Results Labs CBC & Chem 7: 03/02/20 09:06 03/02/20 09:06 Labs: Short CBC 03/02/20 Range/Units 09:06 WBC 6.0 (4.8-10.8) X10*3/uL Hgb 7.3 L (12.0-16.0) g/dl Hct 22.0 L (37-47) % Plt Count 237 (160-400) X10*3/uL BMP 03/01/20 03/01/20 03/02/20 19:47 19:48 09:06 Sodium Cancelled 136 134 L Potassium Cancelled 3.7 3.9 Chloride Cancelled 106 106 Carbon Dioxide Cancelled 25 22 BUN Cancelled 19 H 17 H Creatinine Cancelled 0.82 0.79 Calcium Cancelled 7.0 L 7.1 L Liver Function 03/01/20 03/01/20 Range/Units 19:47 19:47 Total Bilirubin Cancelled < 0.2 Direct Bilirubin Cancelled < 0.2 AST Cancelled 18 ALT Cancelled 13 Alkaline Phosphatase Cancelled 136 H Albumin Cancelled 2.2 L Urine 03/01/20 Range/Units 16:06 Urine Color YELLOW Urine Appearance CLEAR Urine pH 6.5 (5.0-8.0) Ur Specific [place] 1.020 (1.005-1.025) Urine Protein 3+ H (NEG-TRACE) MG/DL Urine Glucose (UA) 100 H (NEG) MG/DL Urine Test POSITIVE H (NEGATIVE) Assessment and Plan (1) Vaginal bleeding during : Status: Acute OB US ordered and resulted prior to the writing of this note. The US showed a viable intrauterine , with measurements consistent with 5 6/7wks gestation, significantly less than the estimate based on her LMP. The fe jerri heartrate was abnormal at 60bpm. I reviewed the findings with the patient and recommended that we repeat the US in a week to confirm viability given the abnormal heartrate; she could be measuring behind if ovulation did not occur at the expected time. However, the combination of her measuring behind expected and the low heart rate makes me concerned--especially given her increased risk with poorly controlled diabetes and HTN--that the is not developing normally and she is at increased risk of a miscarriage. Repeat US will be ordered and scheduled for next week on an outpatient basis; if she is still admitted, this can be re-ordered to be done inpatient. For the , I have ordered 4mg of folic acid PO daily as the diabetes puts her at increased risk of neural tube defects and I am concerned she will, per her report, be unable to swallow a regular vitamin. Given her very low Hgb, I have ordered 325mg ferrous sulfate PO TID. I have also ordered iron studies, B12 and folate to initiate evaluation of the cause of her anemia. A hematology oncology consult should be considered. She had 3+ protein on UA; I have ordered a 24hr urine protein to assess for ba seline nepropathy. She may benefit from a nephrology consult pending the results. I will follow up on results for the testing I have ordered but otherwise sign off on this patient as there is nothing further to be done for her at this time. Please re-contact director outpatient services with new concerns (such as heavier bleeding).
[2020-03-02 21:24] LABS: Glucose, Whole Blood 174 mg/dL (60-115)
[2020-03-02] MEDS: Ferrous Sulfate 324 MG TABLET.DR PO (22:02)
[2020-03-02] MEDS: Insulin Glargine,Hum.rec.anlog 100 UNIT/ML 10 ML VIAL 28 UNIT SUBCUT (22:02)
[2020-03-02] MEDS: Insulin Lispro 100 UNIT/ML 3 ML VIAL SUBCUT (22:03)
--- NOTE | 2020-03-03 05:16 | PC.NURSE ---
Pt refusing all lab draws including vanco trough, and all lab orders placed by OB. Pt states I'm not doing anymore lab draws and puts blankets over her head. Md made aware, pt educated on importance of monitoring vanco level for therapeutic efficiency. Pt encouraged to comply with the plan of care. Will continue to educate patient, and continue to encourage pt to participate in her care.
[2020-03-03] MEDS: Piperacillin Sodium/Tazobactam 3.375 GM in 0.9 % Sodium Chloride 50 ML IV ×4 (05:25→22:58)
[2020-03-03] MEDS: vancomycin HCL 1,000 MG in 0.9 % Sodium Chloride 250 ML 270 MG IV (06:19)
[2020-03-03 07:19] VITALS: BP 123/71; PULSE 99; RESP 18; TEMP 36.9; O2SAT 93
[2020-03-03 07:49] LABS: Glucose, Whole Blood 158 mg/dL (60-115)
[2020-03-03 11:27] VITALS: BP 103/61; PULSE 101; RESP 18; TEMP 36.1; O2SAT 96
[2020-03-03 11:32] LABS: Glucose, Whole Blood 170 mg/dL (60-115)
--- NOTE | 2020-03-03 11:42 | HO.VASCPN ---
Subjective Subjective Date of Service: 03/03/20 Patient reports: no new complaints and feels better Interval history: Patient seen and examined. No events overnight. Appears to be doing relatively well. Of note has had noninvasive arterial testing and OB evaluation as well. Physical Exam Vital Signs: Vital Signs: Last Vital Signs Temp 97.0 F 03/03/20 11:27 Pulse 101 H 03/03/20 11:27 Resp 18 03/03/20 11:27 BP 103/61 03/03/20 11:27 Pulse Ox 96 03/03/20 11:27 Body Mass Index 29.6 Const: General: cooperative, healthy appearing and no acute distress Orientation/consciousness: oriented to person, oriented to place and oriented to time HENMT: Head: Yes normal to inspection Neck: Carotids: no bruits Chest: Chest palpation & inspection: normal inspection of the chest Resp: Effort & Inspection: normal respiratory effort and able to speak in complete sentences Auscultation: clear to auscultation bilaterally Cardio: Rate: regular rate Heart sounds: S1 normal heart sound present and S2 normal heart sound present GI: Inspection: Yes normal to inspection Skin: General skin exam: no rashes or lesions noted Wounds: wounds noted (Right foot 2nd and 3rd digits) Neuro: General: oriented to person, oriented to place, oriented to time and CN's II-XI intact bilaterally Extrem: General: Yes normal to inspection, Yes full ROM and Yes no clubbing, cyanosis or edema Psych: Appearance: grossly normal and well kempt Speech and movement: Normal speech and movement present Affect: normal affect Progress Note: A&P Assessment and plan (1) Osteomyelitis: Problem details: She has infected second toe,osteomyelitis concern She is also Status: Acute Assessment and Plan: Right foot infection. Due to her status an overall situation would most ideally be treated with a transmetatarsal amputation. She will be consented for right transmetatarsal amputation. Risks benefits complications were discussed in detail with the patient. She understood and consented. Will schedule her for tomorrow. Plan was discussed with the hospitalist team. Fall Risk Details Current Medications: Current Medications Generic Name Dose Route Start Last Admin Trade Name Freq PRN Reason Stop Dose Admin Acetaminophen 650 mg 03/01/20 20:03 03/02/20 07:20 Acetaminophen 325 Mg Tablet PO 650 mg Q6H PRN Administration Pain, Mild (Pain Scale 1-3) Ferrous Sulfate 324 mg 03/02/20 21:00 03/02/20 22:02 Ferrous Sulfate 324 Mg Tablet.Dr PO 324 mg TID VASILE Administration Folic Acid 4 mg 03/02/20 12:00 03/02/20 12:30 Folic Acid 1 Mg Tablet PO 4 mg DAILY VASILE Administration Vancomycin HCl 1,000 mg/ 270 mls @ 270 mls/hr 03/02/20 06:00 03/03/20 08:07 Sodium Chloride IV Infused Q12H VASILE Infusion Piperacillin Sod/Tazobactam 50 mls @ 100 mls/hr 03/02/20 16:00 03/03/20 06:14 Sod 3.375 gm/ Sodium Chloride IV Infused Q6H VASILE Infusion Insulin Glargine 28 unit 03/02/20 21:00 03/02/20 22:02 Insulin Glargine,Hum.Rec.Anlog 100 Unit/Ml 10 Ml Vial SUBCUT 28 unit BEDTIME VASILE Administration Insulin Human Lispro 0 unit 03/02/20 08:01 03/03/20 08:08 Insulin Lispro 100 Unit/Ml 3 Ml Vial SUBCUT Not Given QIDACHS [facility] Protocol Lisinopril 5 mg 03/02/20 09:00 03/02/20 08:56 Lisinopril 5 Mg Tablet PO 5 mg DAILY VASILE Administration Protocol Ondansetron HCl 4 mg 03/01/20 20:03 03/02/20 07:21 Ondansetron Hcl 4 Mg/2 Ml Vial IVPUSH 4 mg Q8H PRN Administration Nausea and Vomiting Pharmacy Consult 1 each 03/01/20 15:37 Consult Rx Perform Med Rec MISCELLANE ONCE PRN Consult order Pharmacy Consult 1 each 03/01/20 15:37 Consult Rx Vancomycin Dosing MISCELLANE DAILY PRN Consult order Sodium Chloride 3 ml 03/02/20 00:00 03/02/20 22:03 0.9 % Sodium Chloride Flush 3 Ml Syringe IVFLUSH 3 ml QSHIFT VASILE Administration Time Spent With Patient Time: Total time spent is greater than 50% in coordination of care (as documented) at patient's floor/unit and/or counseling patient: Time with patient: 15 - 24 minutes
--- NOTE | 2020-03-03 11:54 | MHC.CM.PN ---
dc plan home with possible need for vna and wound clinic
--- NOTE | 2020-03-03 12:06 | HO.PM.IMPN ---
Subjective Subjective Date of Service: 03/03/20 Interval History: Seen in f/u for diabetic foot ulcer/cellulitis..No change. She did not report any bleeding, she is 8 week pregant Review of Systems no fever no pain in foot vaginal bleeding Physical Exam Vital Signs: Vital Signs: Last Vital Signs Temp 97.0 F 03/03/20 11:27 Pulse 101 H 03/03/20 11:27 Resp 18 03/03/20 11:27 BP 103/61 03/03/20 11:27 Pulse Ox 96 03/03/20 11:27 Body Mass Index 29.6 Const: General: cooperative and comfortable Resp: Effort & Inspection: normal respiratory effort and able to speak in complete sentences Cardio: Rate: regular rate Heart sounds: S1 normal heart sound present and S2 normal heart sound present Skin: Other: Diabetic foot ulcers--See Imagges from H and P of 03/01 Objective Data Current Medications Generic Name Dose Route Start Last Admin Trade Name Freq PRN Reason Stop Dose Admin Acetaminophen 650 mg 03/01/20 20:03 03/02/20 07:20 Acetaminophen 325 Mg Tablet PO 650 mg Q6H PRN Administration Pain, Mild (Pain Scale 1-3) Ferrous Sulfate 324 mg 03/02/20 21:00 03/02/20 22:02 Ferrous Sulfate 324 Mg Tablet. PO 324 mg TID VASILE Administration Folic Acid 4 mg 03/02/20 12:00 03/02/20 12:30 Folic Acid 1 Mg Tablet PO 4 mg DAILY VASILE Administration Vancomycin HCl 1,000 mg/ 270 mls @ 270 mls/hr 03/02/20 06:00 03/03/20 08:07 Sodium Chloride IV Infused Q12H VASILE Infusion Piperacillin Sod/Tazobactam 50 mls @ 100 mls/hr 03/02/20 16:00 03/03/20 06:14 Sod 3.375 gm/ Sodium Chloride IV Infused Q6H VASILE Infusion Insulin Glargine 28 unit 03/02/20 21:00 03/02/20 22:02 Insulin Glargine,Hum.Rec.Anlog 100 Unit/Ml 10 Ml Vial SUBCUT 28 unit BEDTIME VASILE Administration Insulin Human Lispro 0 unit 03/02/20 08:01 03/03/20 08:08 Insulin Lispro 100 Unit/Ml 3 Ml Vial SUBCUT Not Given QIDACHS [facility] Protocol Lisinopril 5 mg 03/02/20 09:00 03/02/20 08:56 Lisinopril 5 Mg Tablet PO 5 mg DAILY [facility] Administration Protocol Ondansetron HCl 4 mg 03/01/20 20:03 03/02/20 07:21 Ondansetron Hcl 4 Mg/2 Ml Vial IVPUSH 4 mg Q8H PRN Administration Nausea and Vomiting Pharmacy Consult 1 each 03/01/20 15:37 Consult Rx Perform Med Rec MISCELLANE ONCE PRN Consult order Pharmacy Consult 1 each 03/01/20 15:37 Consult Rx Vancomycin Dosing MISCELLANE DAILY PRN Consult order Sodium Chloride 3 ml 03/02/20 00:00 03/02/20 22:03 0.9 % Sodium Chloride Flush 3 Ml Syringe IVFLUSH 3 ml QSHIFT [facility] Administration Labs CBC & Chem 7: 03/02/20 09:06 03/02/20 09:06 Microbiology Microbiology Results: Microbiology 03/01/20 16:23 Toe Right Second Gram Stain - Final 03/01/20 16:23 Toe Right Second Routine Culture - Preliminary Strep agalactiae (Grp B) Staphylococcus species Gram negative laurie 03/01/20 16:42 Blood - Venous Blood Culture - Preliminary No growth after 24 hours. 03/01/20 16:05 Blood - Venous Blood Culture - Preliminary No growth after 24 hours. Assessment and Plan (1) Osteomyelitis: Problem details: She has infected second toe,osteomyelitis concern She is also Status: Acute Assessment and Plan: 29-year-old woman, who is 8 weeks admitted with likely osteomyelitis with history of type 1 diabetes. Diabetic foot ulcer/Osteomyelitis. -Vancomycin and zosyn D3 -ID consult. -Vascular surgery will perform TMA tomorrow Diabetes. Generally uncontrolled. Hgb A1c is 10. Sliding scale, lantus 30 Asthma. Albuterol as needed. Hypertension. Stable. Continue Lisinopril. Anemia--likely anemia of chronic disease, sligth drop will keep eye on it. HEME conslt if any worse check iron studies, B12, flate ? Vag bleeding/8 month --saw patient , recommend 24 protein for proteinuria, folic acid added, anemia work Proteinuria from diabetes, renal consult routine DVT prophylaxis with mechanical compression boots.
[2020-03-03] MEDS: Folic Acid 1 MG TABLET 4 MG PO (12:49)
[2020-03-03] MEDS: Ferrous Sulfate 324 MG TABLET.DR PO ×3 (12:49→20:49)
[2020-03-03] MEDS: 0.9 % Sodium Chloride Flush 3 ML SYRINGE IVFLUSH ×2 (12:50→16:01)
[2020-03-03] MEDS: lisinopriL 5 MG TABLET PO (12:50)
[2020-03-03] MEDS: Insulin Lispro 100 UNIT/ML 3 ML VIAL SUBCUT ×2 (13:00→16:50)
[2020-03-03 15:33] VITALS: BP 141/79; PULSE 101; RESP 18; TEMP 36.9; O2SAT 100
[2020-03-03] MEDS: Acetaminophen 325 MG TABLET 650 MG PO (16:01)
[2020-03-03 16:45] LABS: Glucose, Whole Blood 156 mg/dL (60-115)
[2020-03-03 19:11] VITALS: BP 133/73; PULSE 106; RESP 18; TEMP 37.1; O2SAT 98
[2020-03-03 20:46] LABS: Glucose, Whole Blood 228 mg/dL (60-115)
[2020-03-03 23:43] VITALS: BP 127/66; PULSE 96; RESP 18; TEMP 37.3; O2SAT 98
[2020-03-04] VITALS (10 sets, daily range): BP systolic 115–173; BP diastolic 59–101; PULSE 94–104; RESP 16–20; TEMP 36.1–37.2; O2SAT 96–99
[2020-03-04] MEDS: 0.9 % Sodium Chloride Flush 3 ML SYRINGE IVFLUSH ×3 (01:49→16:21)
[2020-03-04] MEDS: Acetaminophen 325 MG TABLET 650 MG PO ×3 (02:16→21:27)
[2020-03-04] MEDS: Piperacillin Sodium/Tazobactam 3.375 GM in 0.9 % Sodium Chloride 50 ML IV ×4 (05:13→21:16)
[2020-03-04 07:28] LABS: Glucose, Whole Blood 203 mg/dL (60-115)
[2020-03-04] MEDS: lisinopriL 5 MG TABLET PO (07:50)
[2020-03-04] MEDS: Folic Acid 1 MG TABLET 4 MG PO (07:50)
[2020-03-04] MEDS: Ferrous Sulfate 324 MG TABLET.DR PO (07:50)
[2020-03-04 09:08] LABS: Creatinine, mg/dL 53.97
[2020-03-04 09:34] LABS: Creatinine, 24Hr Urine 1.2 G/Day (1.0-2.0); Total Volume 24 Hour Urine 2200 mL
[2020-03-04 09:35] LABS: Protein 24 Hr Urine 12628 mg/Day (<150); Protein mg/dL 574 mg/dL
--- NOTE | 2020-03-04 10:28 | PC.NURSE ---
dr herring and dr pedro aware that pt refusing labs and lab drawn with low h/h and patient 8 weeks
--- NOTE | 2020-03-04 11:00 | PC.NURSE ---
dr root primary anesthesia aware of patient refusal
[2020-03-04 11:07] LABS: Glucose, Whole Blood 165 mg/dL (60-115)
[2020-03-04 12:11] LABS: Glucose, Whole Blood 168 mg/dL (60-115)
--- NOTE | 2020-03-04 12:19 | P.CONAN_ITS ---
[facility] Past Medical History Medical History Asthma Back pain Blind right eye Depression with anxiety Diabetes Diabetic retinopathy Essential hypertension HTN (hypertension) test positive Type 2 diabetes mellitus with hyperglycemia, with long-term current use of insulin Family History Family History Mother Coronary artery disease Myocardial infarction Stroke Diabetes mellitus Father Myocardial infarction Surgical History Surgical History History of transmetatarsal amputation of foot Social History Social History Household Members: Significant Other Housing: Apartment Alcohol intake: never Smoking Status: Never smoker service: No Gender identity: female Meds Allergies Allergy/AdvReac Type Severity Reaction Status Date / Time morphine [MORPHINE] Allergy Severe ORAL Verified 02/16/20 14:35 SWELLING Home Medications Medication Instructions Recorded Confirmed Type insulin lispro 100 unit/mL 0 unit SUBCUT TID 02/16/20 03/01/20 History subcutaneous solution acetaminophen 2 tab PO Q6H PRN 03/01/20 03/01/20 History albuterol sulfate 2 puff PO Q4-6H PRN 03/01/20 03/01/20 History insulin detemir U-100 [Levemir 40 unit SUBCUT BEDTIME 03/01/20 03/01/20 History FlexTouch U-100 Insuln] lisinopril 1 tab PO DAILY 03/01/20 03/01/20 History Exam Exam Date and Time: March 04, 2020 1219 Height,Weight and Vital Signs: Height 5 ft 7 in Weight 85.729 kg Last Vital Signs Temp 97.0 F 03/04/20 12:15 Pulse 104 H 03/04/20 12:15 Resp 18 03/04/20 12:15 BP 173/101 H 03/04/20 12:15 Pulse Ox 99 03/04/20 12:15 Pertinent Lab Results Pertinent Lab Results: Laboratory Tests 03/01/20 03/01/20 03/01/20 15:52 15:52 15:52 WBC 6.8 RBC 3.08 L Hgb 8.5 L Hct 25.4 L MCV 82.5 MCH 27.6 MCHC 33.5 RDW 12.5 Plt Count 294 MPV 11.3 Immature Gran % (Auto) 0.9 H Neut % (Auto) 77.3 H Lymph % (Auto) 14.5 L [place] % (Auto) 6.2 Eos % (Auto) 1.0 Baso % (Auto) 0.1 Lymph # (Auto) 1.0 L [place] # (Auto) 0.4 Eos # (Auto) 0.1 Baso # (Auto) 0.0 Abs Immat Gran (auto) 0.06 H Absolute Neuts (auto) 5.2 Absolute Nucleated RBC 0.000 Nucleated RBC % (auto) 0.0 ESR PT INR Sodium Cancelled Potassium Cancelled Chloride Cancelled Carbon Dioxide Cancelled Anion Gap Cancelled BUN Cancelled Creatinine Cancelled Estim Creat Clear Calc Cancelled Estimated GFR Cancelled POC Glucose Random Glucose Cancelled Estimat Average Glucose Hemoglobin A1c % Lactic Acid 0.9 Calcium Cancelled Magnesium Total Bilirubin Direct Bilirubin AST ALT Alkaline Phosphatase C-Reactive Protein Total Protein Albumin Beta HCG, Quant Cancelled Urine Color Urine Appearance Urine pH Ur Specific [place] Urine Protein Urine Glucose (UA) Urine Ketones Urine Blood Urine Nitrite Ur Leukocyte Esterase Urine RBC Urine WBC Ur Squamous Epith Cells Urine Bacteria Ur 24 Hour Volume Ur Creatinine mg/dL Ur Creatinine 24 Hour Ur Total Protein 24 Hr Urine Test COVID-19 (CARO) COVID-19 Clin Com 03/01/20 03/01/20 03/01/20 15:52 15:52 15:53 WBC RBC Hgb Hct MCV MCH MCHC RDW Plt Count MPV Immature Gran % (Auto) Neut % (Auto) Lymph % (Auto) [place] % (Auto) Eos % (Auto) Baso % (Auto) Lymph # (Auto) [place] # (Auto) Eos # (Auto) Baso # (Auto) Abs Immat Gran (auto) Absolute Neuts (auto) Absolute Nucleated RBC Nucleated RBC % (auto) ESR 121 H PT 12.5 INR 1.1 Sodium Potassium Chloride Carbon Dioxide Anion Gap BUN Creatinine Estim Creat Clear Calc Estimated GFR POC Glucose Random Glucose Estimat Average Glucose Hemoglobin A1c % Lactic Acid Calcium Magnesium Cancelled Total Bilirubin Cancelled Direct Bilirubin Cancelled AST Cancelled ALT Cancelled Alkaline Phosphatase Cancelled C-Reactive Protein Cancelled Total Protein Cancelled Albumin Cancelled Beta HCG, Quant Urine Color Urine Appearance Urine pH Ur Specific [place] Urine Protein Urine Glucose (UA) Urine Ketones Urine Blood Urine Nitrite Ur Leukocyte Esterase Urine RBC Urine WBC Ur Squamous Epith Cells Urine Bacteria Ur 24 Hour Volume Ur Creatinine mg/dL Ur Creatinine 24 Hour Ur Total Protein 24 Hr Urine Test COVID-19 (CARO) COVID-19 [place] 03/01/20 03/01/20 03/01/20 16:06 16:07 16:42 WBC RBC Hgb Hct MCV MCH MCHC RDW Plt Count MPV Immature Gran % (Auto) Neut % (Auto) Lymph % (Auto) [place] % (Auto) Eos % (Auto) Baso % (Auto) Lymph # (Auto) [place] # (Auto) Eos # (Auto) Baso # (Auto) Abs Immat Gran (auto) Absolute Neuts (auto) Absolute Nucleated RBC Nucleated RBC % (auto) ESR PT INR Sodium Potassium Chloride Carbon Dioxide Anion Gap BUN Creatinine Estim Creat Clear Calc Estimated GFR POC Glucose Random Glucose Estimat Average Glucose 258 Hemoglobin A1c % 10.6 Lactic Acid Calcium Magnesium Total Bilirubin Direct Bilirubin AST ALT Alkaline Phosphatase C-Reactive Protein Total Protein Albumin Beta HCG, Quant Urine Color YELLOW Urine Appearance CLEAR Urine pH 6.5 Ur Specific [place] 1.020 Urine Protein 3+ H Urine Glucose (UA) 100 H Urine Ketones NEG Urine Blood 3+ H Urine Nitrite NEG Ur Leukocyte Esterase NEG Urine RBC 5-9 H Urine WBC 0 Ur Squamous Epith Cells 1+ Urine Bacteria 1+ Ur 24 Hour Volume Ur Creatinine mg/dL Ur Creatinine 24 Hour Ur Total Protein 24 Hr Urine Test POSITIVE H COVID-19 (CARO) Negative COVID-19 Cognection Com See Note 03/01/20 03/01/20 03/01/20 19:47 19:47 19:48 WBC RBC Hgb Hct MCV MCH MCHC RDW Plt Count MPV Immature Gran % (Auto) Neut % (Auto) Lymph % (Auto) [place] % (Auto) Eos % (Auto) Baso % (Auto) Lymph # (Auto) [place] # (Auto) Eos # (Auto) Baso # (Auto) Abs Immat Gran (auto) Absolute Neuts (auto) Absolute Nucleated RBC Nucleated RBC % (auto) ESR PT INR Sodium Cancelled 136 Potassium Cancelled 3.7 Chloride Cancelled 106 Carbon Dioxide Cancelled 25 Anion Gap Cancelled 9 L BUN Cancelled 19 H Creatinine Cancelled 0.82 Estim Creat Clear Calc Cancelled 111.8 Estimated GFR Cancelled > 60 POC Glucose Random Glucose Cancelled 131 H Estimat Average Glucose Hemoglobin A1c % Lactic Acid Calcium Cancelled 7.0 L Magnesium 1.9 1.9 Total Bilirubin Cancelled < 0.2 Direct Bilirubin Cancelled < 0.2 AST Cancelled 18 ALT Cancelled 13 Alkaline Phosphatase Cancelled 136 H C-Reactive Protein Cancelled 7.83 H Total Protein Cancelled 5.3 L Albumin Cancelled 2.2 L Beta HCG, Quant Cancelled 4739 Urine Color Urine Appearance Urine pH Ur Specific [place] Urine Protein Urine Glucose (UA) Urine Ketones Urine Blood Urine Nitrite Ur Leukocyte Esterase Urine RBC Urine WBC Ur Squamous Epith Cells Urine Bacteria Ur 24 Hour Volume Ur Creatinine mg/dL Ur Creatinine 24 Hour Ur Total Protein 24 Hr Urine Test COVID-19 (CARO) COVID-19 [place] 03/01/20 03/02/20 03/02/20 21:26 08:44 09:06 WBC 6.0 RBC 2.68 L Hgb 7.3 L Hct 22.0 L MCV 82.1 MCH 27.2 MCHC 33.2 RDW 12.6 Plt Count 237 MPV 10.8 Immature Gran % (Auto) 0.3 Neut % (Auto) 77.7 H Lymph % (Auto) 12.6 L [place] % (Auto) 7.5 Eos % (Auto) 1.7 Baso % (Auto) 0.2 Lymph # (Auto) 0.8 L [place] # (Auto) 0.5 Eos # (Auto) 0.1 Baso # (Auto) 0.0 Abs Immat Gran (auto) 0.02 Absolute Neuts (auto) 4.7 Absolute Nucleated RBC 0.000 Nucleated RBC % (auto) 0.0 ESR PT INR Sodium Potassium Chloride Carbon Dioxide Anion Gap BUN Creatinine Estim Creat Clear Calc Estimated GFR POC Glucose 125 H 110 Random Glucose Estimat Average Glucose Hemoglobin A1c % Lactic Acid Calcium Magnesium Total Bilirubin Direct Bilirubin AST ALT Alkaline Phosphatase C-Reactive Protein Total Protein Albumin Beta HCG, Quant Urine Color Urine Appearance Urine pH Ur Specific [place] Urine Protein Urine Glucose (UA) Urine Ketones Urine Blood Urine Nitrite Ur Leukocyte Esterase Urine RBC Urine WBC Ur Squamous Epith Cells Urine Bacteria Ur 24 Hour Volume Ur Creatinine mg/dL Ur Creatinine 24 Hour Ur Total Protein 24 Hr Urine Test COVID-19 (CARO) COVID-19 [place] 03/02/20 03/02/20 03/02/20 09:06 11:10 15:38 WBC RBC Hgb Hct MCV MCH MCHC RDW Plt Count MPV Immature Gran % (Auto) Neut % (Auto) Lymph % (Auto) [place] % (Auto) Eos % (Auto) Baso % (Auto) Lymph # (Auto) [place] # (Auto) Eos # (Auto) Baso # (Auto) Abs Immat Gran (auto) Absolute Neuts (auto) Absolute Nucleated RBC Nucleated RBC % (auto) ESR PT INR Sodium 134 L Potassium 3.9 Chloride 106 Carbon Dioxide 22 Anion Gap 10 L BUN 17 H Creatinine 0.79 Estim Creat Clear Calc 116.0 Estimated GFR > 60 POC Glucose 104 130 H Random Glucose 113 Estimat Average Glucose Hemoglobin A1c % Lactic Acid Calcium 7.1 L Magnesium Total Bilirubin Direct Bilirubin AST ALT Alkaline Phosphatase C-Reactive Protein Total Protein Albumin Beta HCG, Quant Urine Color Urine Appearance Urine pH Ur Specific [place] Urine Protein Urine Glucose (UA) Urine Ketones Urine Blood Urine Nitrite Ur Leukocyte Esterase Urine RBC Urine WBC Ur Squamous Epith Cells Urine Bacteria Ur 24 Hour Volume Ur Creatinine mg/dL Ur Creatinine 24 Hour Ur Total Protein 24 Hr Urine Test COVID-19 (CARO) COVID-MANGO BCN 03/02/20 03/03/20 03/03/20 21:18 07:33 11:26 WBC RBC Hgb Hct MCV MCH MCHC RDW Plt Count MPV Immature Gran % (Auto) Neut % (Auto) Lymph % (Auto) [place] % (Auto) Eos % (Auto) Baso % (Auto) Lymph # (Auto) [place] # (Auto) Eos # (Auto) Baso # (Auto) Abs Immat Gran (auto) Absolute Neuts (auto) Absolute Nucleated RBC Nucleated RBC % (auto) ESR PT INR Sodium Potassium Chloride Carbon Dioxide Anion Gap BUN Creatinine Estim Creat Clear Calc Estimated GFR POC Glucose 174 H 158 H 170 H Random Glucose Estimat Average Glucose Hemoglobin A1c % Lactic Acid Calcium Magnesium Total Bilirubin Direct Bilirubin AST ALT Alkaline Phosphatase C-Reactive Protein Total Protein Albumin Beta HCG, Quant Urine Color Urine Appearance Urine pH Ur Specific [place] Urine Protein Urine Glucose (UA) Urine Ketones Urine Blood Urine Nitrite Ur Leukocyte Esterase Urine RBC Urine WBC Ur Squamous Epith Cells Urine Bacteria Ur 24 Hour Volume Ur Creatinine mg/dL Ur Creatinine 24 Hour Ur Total Protein 24 Hr Urine Test COVID-19 (CARO) COVID-19 [place] 03/03/20 03/03/20 03/04/20 16:37 20:43 07:19 WBC RBC Hgb Hct MCV MCH MCHC RDW Plt Count MPV Immature Gran % (Auto) Neut % (Auto) Lymph % (Auto) [place] % (Auto) Eos % (Auto) Baso % (Auto) Lymph # (Auto) [place] # (Auto) Eos # (Auto) Baso # (Auto) Abs Immat Gran (auto) Absolute Neuts (auto) Absolute Nucleated RBC Nucleated RBC % (auto) ESR PT INR Sodium Potassium Chloride Carbon Dioxide Anion Gap BUN Creatinine Estim Creat Clear Calc Estimated GFR POC Glucose 156 H 228 H 203 H Random Glucose Estimat Average Glucose Hemoglobin A1c % Lactic Acid Calcium Magnesium Total Bilirubin Direct Bilirubin AST ALT Alkaline Phosphatase C-Reactive Protein Total Protein Albumin Beta HCG, Quant Urine Color Urine Appearance Urine pH Ur Specific [place] Urine Protein Urine Glucose (UA) Urine Ketones Urine Blood Urine Nitrite Ur Leukocyte Esterase Urine RBC Urine WBC Ur Squamous Epith Cells Urine Bacteria Ur 24 Hour Volume Ur Creatinine mg/dL Ur Creatinine 24 Hour Ur Total Protein 24 Hr Urine Test COVID-19 (CARO) COVID-MANGO BCN 03/04/20 03/04/20 03/04/20 07:30 10:55 12:08 WBC RBC Hgb Hct MCV MCH MCHC RDW Plt Count MPV Immature Gran % (Auto) Neut % (Auto) Lymph % (Auto) [place] % (Auto) Eos % (Auto) Baso % (Auto) Lymph # (Auto) [place] # (Auto) Eos # (Auto) Baso # (Auto) Abs Immat Gran (auto) Absolute Neuts (auto) Absolute Nucleated RBC Nucleated RBC % (auto) ESR PT INR Sodium Potassium Chloride Carbon Dioxide Anion Gap BUN Creatinine Estim Creat Clear Calc Estimated GFR POC Glucose 165 H 168 H Random Glucose Estimat Average Glucose Hemoglobin A1c % Lactic Acid Calcium Magnesium Total Bilirubin Direct Bilirubin AST ALT Alkaline Phosphatase C-Reactive Protein Total Protein Albumin Beta HCG, Quant Urine Color Urine Appearance Urine pH Ur Specific [place] Urine Protein Urine Glucose (UA) Urine Ketones Urine Blood Urine Nitrite Ur Leukocyte Esterase Urine RBC Urine WBC Ur Squamous Epith Cells Urine Bacteria Ur 24 Hour Volume 2200 Ur Creatinine mg/dL 53.97 Ur Creatinine 24 Hour 1.2 Ur Total Protein 24 Hr 21988 H Urine Test COVID-19 (CARO) COVID-19 Cognection Com Airway Mallampati Class: II TM Dist: >3cm Neck ROM: Full Loose/Missing/Broken Teeth: No Heart: RRR Lungs: CTA Assessment and Plan Assessment Anesthesia Assessment: Anesthesia Plan Discussed and Chart Reviewed Final Anesthetic Review NPO: Yes ASA Class: III Final Preanesthetic Review: Meds/Allgs Chart Reviewed, Consent Obtained/Reviewed and Anes Risks/Benef Reviewed Patient Risk: Intermediate Procedure Risk: Low Assessment/Block/Sedation in SS: Assess/Block/Sedation-SS Anesthetic Plan Anesthetic Plan: MAC: Disposition: Standard PACU
--- NOTE | 2020-03-04 14:08 | PM.OP ---
Brief Operative Note Date of Service: 03/04/20 Pre-op diagnosis: Right foot osteomyelitis ,nonhealing ulcer Post-op diagnosis: same Procedure: Right foot transmetatarsal amputation Surgeon: Nomi Arias MD Anesthesia: MAC Estimated blood loss (mL): 100 Pathology: other Condition: stable Disposition: PACU
--- NOTE | 2020-03-04 14:23 | HO.PM.IMPN ---
Subjective Subjective Date of Service: 03/04/20 Interval History: Patient seen and examined at bedside patient denies any vaginal bleed today Review of Systems no fever no pain in foot vaginal bleeding Physical Exam Vital Signs: Vital Signs: Last Vital Signs Temp 98.2 F 03/04/20 14:05 Pulse 98 03/04/20 14:05 Resp 16 03/04/20 14:05 BP 115/67 03/04/20 14:05 Pulse Ox 99 03/04/20 14:05 Body Mass Index 29.6 Const: General: cooperative and comfortable Resp: Effort & Inspection: normal respiratory effort and able to speak in complete sentences Cardio: Rate: regular rate Heart sounds: S1 normal heart sound present and S2 normal heart sound present Skin: Other: Diabetic foot ulcers--See Imagges from H and P of 03/01 Objective Data Current Medications Generic Name Dose Route Start Last Admin Trade Name Freq PRN Reason Stop Dose Admin Acetaminophen 650 mg 03/01/20 20:03 03/04/20 02:16 Acetaminophen 325 Mg Tablet PO 650 mg Q6H PRN Administration Pain, Mild (Pain Scale 1-3) Acetaminophen 650 mg 03/04/20 12:57 Acetaminophen 325 Mg Tablet PO ONCE PRN Pain, Mild (Pain Scale 1-3) Ferrous Sulfate 324 mg 03/02/20 21:00 03/04/20 07:50 Ferrous Sulfate 324 Mg Tablet. PO 324 mg TID VASILE Administration Folic Acid 4 mg 03/02/20 12:00 03/04/20 07:50 Folic Acid 1 Mg Tablet PO 4 mg DAILY VASILE Administration Vancomycin HCl 1,000 mg/ 270 mls @ 270 mls/hr 03/02/20 06:00 03/04/20 05:49 Sodium Chloride IV Not Given Q12H VASILE Piperacillin Sod/Tazobactam 50 mls @ 100 mls/hr 03/02/20 16:00 03/04/20 11:27 Sod 3.375 gm/ Sodium Chloride IV Infused Q6H [facility] Infusion Insulin Glargine 30 unit 03/03/20 21:00 03/03/20 20:54 Insulin Glargine,Hum.Rec.Anlog 100 Unit/Ml 10 Ml Vial SUBCUT Not Given BEDTIME [facility] Insulin Human Lispro 0 unit 03/02/20 08:01 03/04/20 11:34 Insulin Lispro 100 Unit/Ml 3 Ml Vial SUBCUT Not Given QIDACHS [facility] Protocol Lisinopril 5 mg 03/02/20 09:00 03/04/20 07:50 Lisinopril 5 Mg Tablet PO 5 mg DAILY [facility] Administration Protocol Ondansetron HCl 4 mg 03/01/20 20:03 03/02/20 07:21 Ondansetron Hcl 4 Mg/2 Ml Vial IVPUSH 4 mg Q8H PRN Administration Nausea and Vomiting Ondansetron HCl 4 mg 03/04/20 12:57 Ondansetron Hcl 4 Mg/2 Ml Vial IVPUSH ONCE PRN Nausea and Vomiting Pharmacy Consult 1 each 03/01/20 15:37 Consult Rx Perform Med Rec MISCELLANE ONCE PRN Consult order Pharmacy Consult 1 each 03/01/20 15:37 Consult Rx Vancomycin Dosing MISCELLANE DAILY PRN Consult order Sodium Chloride 3 ml 03/02/20 00:00 03/04/20 07:46 0.9 % Sodium Chloride Flush 3 Ml Syringe IVFLUSH 3 ml QSHIFT [facility] Administration Labs CBC & Chem 7: 03/02/20 09:06 03/02/20 09:06 Microbiology Microbiology Results: Microbiology 03/01/20 16:23 Toe Right Second Gram Stain - Final 03/01/20 16:23 Toe Right Second Routine Culture - Final Strep agalactiae (Grp B) Staphylococcus aureus Pseudomonas aeruginosa 03/01/20 16:42 Blood - Venous Blood Culture - Preliminary No growth after 48 hours. 03/01/20 16:05 Blood - Venous Blood Culture - Preliminary No growth after 48 hours. Assessment and Plan (1) Osteomyelitis: Status: Acute Assessment and Plan: 29-year-old woman, who is 8 weeks admitted with likely osteomyelitis with history of type 1 diabetes. Diabetic foot ulcer/Osteomyelitis. on Vancomycin and zosyn D4 -ID consult. -Vascular surgery following Plan for TMA today Diabetes. uncontrolled. Hgb A1c is 10. continue Sliding scale, lantus 30 Asthma. Albuterol as needed. Hypertension. Stable. Continue Lisinopril. Anemia--likely anemia of chronic disease, hemoglobin around 7.3 on 03/02 refused labs today check iron studies, B12, flate ordered for morning labs ? Vag bleeding/8 weeks - no bleeding while in the hospital monitor H&H seen by obgyn , recommend 24 protein for proteinuria, folic acid , anemia work Proteinuria from diabetes, Nephrology consulted DVT prophylaxis with mechanical compression boots. given anemia
[2020-03-04 16:52] LABS: Glucose, Whole Blood 135 mg/dL (60-115)
--- NOTE | 2020-03-04 21:27 | OP_ITS ---
SURGEON: Nomi Arias MD INDICATIONS: Shereen is a 29-year-old diabetic female, who has had prior toe amputation. She has a nonhealing 2nd and 3rd toe. It has progressively gotten worse. The situation has been complicated by the fact that she is 8 weeks . Prior to procedure, [employer] evaluation was obtained. We also obtained informed consent and we did inform her that she is at higher risk. Her is going to be at high risk due to this procedure. In addition, we discussed this with the patient and the patient's healthcare proxy as well via telephone and obtained informed consent of both. In addition, the patient this morning refused laboratory studies and antibiotics. She now presents for transmetatarsal amputation. PREOPERATIVE DIAGNOSIS: POSTOPERATIVE DIAGNOSIS: PROCEDURE PERFORMED: Right foot transmetatarsal amputation. ESTIMATED BLOOD LOSS: 100 mL. COMPLICATIONS: ANESTHESIA: Local with sedation. ASSISTANTS: SPECIMENS: Eladio. PRE PROCEDURE DIAGNOSES: Right foot osteomyelitis, nonhealing ulcer. POSTPROCEDURE DIAGNOSES: Right foot osteomyelitis, nonhealing ulcer. DESCRIPTION OF PROCEDURE: The patient was brought to the operating room, prior to which timeout was called for patient identification and site verification. Right foot was prepped and draped in standard surgical fashion. Curvilinear incision was carried out over the dorsum of the foot and plantar aspect of flap was created. There was an ulcerated area over the prior metatarsal head, which we had to cut around. This was excised in its entirety. Using a power saw, we transected across the metatarsals. We obtained adequate hemostasis. It was healthy tissue with good bleeding. Once this was accomplished, flap was trimmed to appropriate size. Deep layer was reapproximated using 2-0 Vicryl, superficial layer with 2-0 Vicryl as well. We used interrupted 2-0 nylon in a mattress fashion and finally skin clips. At the end of the case, sponge, needle, and instrument counts were correct. The patient tolerated the procedure well, returned to Recovery with stable vitals. DRAINS: None. MD ALBINO Barrera/PAULINA / [id number]
[2020-03-05] MEDS: 0.9 % Sodium Chloride Flush 3 ML SYRINGE IVFLUSH ×2 (00:45→08:06)
[2020-03-05] MEDS: Piperacillin Sodium/Tazobactam 3.375 GM in 0.9 % Sodium Chloride 50 ML IV ×2 (05:01→09:48)
--- NOTE | 2020-03-05 06:36 | MHC.PIE ---
p; pt cont to refuse vancomycin and lab draws. when asked, pt refusing to give any food explanations on why she dosen't want to take vanco or allow for labs. note; pt also refusing care and safety measures (bed alarms) i; dr mcdonald notified e; will cont to monitor
[2020-03-05 07:16] VITALS: BP 122/76; PULSE 100; TEMP 36.7; O2SAT 97
[2020-03-05 07:16] LABS: Glucose, Whole Blood 231 mg/dL (60-115)
[2020-03-05] MEDS: Ferrous Sulfate 324 MG TABLET.DR PO (08:06)
[2020-03-05] MEDS: lisinopriL 5 MG TABLET PO (08:06)
[2020-03-05] MEDS: Folic Acid 1 MG TABLET 4 MG PO (08:06)
[2020-03-05] MEDS: Insulin Lispro 100 UNIT/ML 3 ML VIAL SUBCUT ×2 (08:06→11:45)
--- NOTE | 2020-03-05 09:41 | HO.POSTANES ---
Post Anesthesia Evaluation Post Anesthesia Evaluation Vital Signs: Vital Signs Temp Pulse Resp BP Pulse Ox 03/05/20 07:16 98.0 F 100 122/76 97 03/04/20 23:38 100 18 120/60 96 Anesthesia: Monitored Mental Status: Awake Pain Control: Satisfactory Nausea/Vomiting: None Hydration: Adequate Anesthesia-Related Issues: No Anes. Related Issues
--- NOTE | 2020-03-05 11:26 | MHC.CM.PN ---
per rounds today pt considwering signing out ama cm will follow
[2020-03-05 11:39] LABS: Glucose, Whole Blood 166 mg/dL (60-115)
--- NOTE | 2020-03-05 12:35 | HO.VASCPN ---
Subjective Subjective Date of Service: 03/05/20 Patient reports: no new complaints and feels better Interval history: Patient seen and examined. Postop day 1 status post transmetatarsal amputation. Did relatively well last night. Pain well controlled. At the current time refusing additional care. Now presents for follow-up. Physical Exam Vital Signs: Vital Signs: Last Vital Signs Temp 98.0 F 03/05/20 07:16 Pulse 100 03/05/20 07:16 Resp 18 03/04/20 23:38 BP 122/76 03/05/20 07:16 Pulse Ox 97 03/05/20 07:16 Body Mass Index 29.6 Const: General: cooperative, healthy appearing and no acute distress Orientation/consciousness: oriented to person, oriented to place and oriented to time HENMT: Head: Yes normal to inspection Neck: Carotids: no bruits Chest: Chest palpation & inspection: normal inspection of the chest Resp: Effort & Inspection: normal respiratory effort and able to speak in complete sentences Auscultation: clear to auscultation bilaterally Cardio: Rate: regular rate Heart sounds: S1 normal heart sound present and S2 normal heart sound present GI: Inspection: Yes normal to inspection Skin: Other: Incision: Dressing changed. Incision line appears to be healing relatively well. General skin exam: no rashes or lesions noted Wounds: no wounds Neuro: General: oriented to person, oriented to place, oriented to time and CN's II-XI intact bilaterally Extrem: General: Yes normal to inspection, Yes full ROM and Yes no clubbing, cyanosis or edema Psych: Appearance: grossly normal and well kempt Speech and movement: Normal speech and movement present Affect: normal affect Progress Note: A&P Assessment and plan (1) S/P transmetatarsal amputation of foot: Status: Acute Assessment and Plan: Patient is status post transmetatarsal amputation. Patient has refused all care including blood draws an additional antibiotics. Patient is signing out AMA. I had an extensive discussion with her about the importance of staying in the hospital and continued care. She also was informed at the high risk of limb loss should she continue to proceed with noncompliance and not following up. She is putting herself and her baby at risk. She was informed of all of this. I spent 40 minutes discussing this with her along with a bedside dressing change. I did discuss the importance of keeping it clean and offloading. If she is signing out AMA I have requested that she follow up with me in approximately 2 weeks time for suture and staple removal. Thank you for allowing me to participate in her care. Time Spent With Patient Time: Total time spent is greater than 50% in coordination of care (as documented) at patient's floor/unit and/or counseling patient: Time with patient: Greater than 35 minutes
--- NOTE | 2020-03-05 13:15 | MHC.CM.PN ---
pt left ama
--- NOTE | 2020-03-13 16:15 | PM.DS ---
DS: Providers Provider Date of Service: 03/13/20 Date of admission: 03/01/20 20:03 Date of service 03/05/19 Primary care physician: [facility] Consults: 03/02/20 08:01 Consult to Infectious Diseases Routine Consulting Provider: Yamilet Diallo Reason for consultation: osteomyelitis right foot Has provider been notified: No Consult to Vascular Surgery Routine Consulting Provider: Nomi Arias Reason for consultation: osteo, type I DM, hx transmet Has provider been notified: No 03/02/20 10:15 Consult to Obstetrics / Gynecology Routine Consulting Provider: Anuradha Draper Reason for consultation: 8 weeks m vaginal bleeding 03/03/20 12:16 Consult to Nephrology Routine Consulting Provider: Angelita Walsh Reason for consultation: Proteinuria Has provider been notified: No DS: Diagnosis Discharge Diagnosis (1) S/P transmetatarsal amputation of foot: Status: Acute (2) Diabetic foot infection: Status: Acute (3) Vaginal bleeding during : Status: Acute (4) Osteomyelitis: Status: Acute (5) Diabetic retinopathy: Status: Acute DS: Medications Discharge Medications Home Medications: Home Medications Medication Instructions Recorded Confirmed insulin lispro 100 unit/mL 0 unit SUBCUT TID 02/16/20 03/01/20 subcutaneous solution acetaminophen 2 tab PO Q6H PRN 03/01/20 03/01/20 albuterol sulfate 2 puff PO Q4-6H PRN 03/01/20 03/01/20 insulin detemir U-100 [Levemir 40 unit SUBCUT BEDTIME 03/01/20 03/01/20 FlexTouch U-100 Insuln] lisinopril 1 tab PO DAILY 03/01/20 03/01/20 Previous Rx's Medication Instructions Recorded amoxicillin-pot clavulanate 1 tab PO BID #14 tab 03/13/20 [Augmentin] DS: Summary Hospital Course Hospital Course: HPI 29-year-old woman, who is 8 weeks , presenting to the ER with complaints of worsening foot wound. She has a history of type 1 diabetes and chronic foot wounds with history of osteomyelitis and right foot transmetatarsal amputation. She has diabetic retinopathy, neuropathy, she is blind in the right eye. [facility] she has not been in about 3 weeks. She reports that she had taken off her socks and felt like her foot was malodorous and her told her that she had some black areas of discoloration on her toe lose and dorsal aspect of her right foot. She did have some clear drainage in the right foot with clear drainage and multiple areas of eschar. She has got 3 plantar wounds and what appears to be a fresh skin tear to the plantar aspect of her left foot. She denied fever, chills, nausea, vomiting, diarrhea. <Tawny Taylor NP - Last Filed: 03/01/20 20:35 Hospital course 29-year-old female with type 1 uncontrolled diabetes non compliant admitted with right diabetic foot infection and osteomyelitis, patient was started on IV antibiotic, vascular surgery was consulted, patient underwent Right foot transmetatarsal amputation. Patient was also found to be anemic with hemoglobin around 7, patient was reporting vaginal bleed, no bleeding while in the hospital, patient was 8 weeks , patient was seen by OBGYN recommended monitoring and checking for proteinuria, patient refused postop labs, patient refused transfusion, patient decided to leave against medical advice, explained to patient risk of not having treatment including worsening anemia, worsening infection including , patient understands the risk but still refused to stay refused further treatment, patient left against medical advice Time Spent with Patient Time attestation: Total time spent providing and/or coordinating discharge services: Discharge coordination time: Greater than 30 minutes Physical Exam Vital Signs: Vital Signs: Last Vital Signs Temp 98.0 F 03/05/20 07:16 Pulse 100 03/05/20 07:16 Resp 18 03/04/20 23:38 BP 122/76 03/05/20 07:16 Pulse Ox 97 03/05/20 07:16 Body Mass Index 29.6 Const: General: cooperative and comfortable Resp: Effort & Inspection: normal respiratory effort and able to speak in complete sentences Cardio: Rate: regular rate Heart sounds: S1 normal heart sound present and S2 normal heart sound present Skin: Other: Diabetic foot ulcers DS: Data Data Completed and Pending Completed studies during hospitalization [Text1]: Pending at discharge 03/04/20 13:26 Surgical [PTH] Routine Procedures Detachment at Right Foot, Partial 1st Ray, Open Approach (03/01/20) Detachment at Right Foot, Partial 2nd Ray, Open Approach (03/01/20) Detachment at Right Foot, Partial 3rd Ray, Open Approach (03/01/20) Detachment at Right Foot, Partial 4th Ray, Open Approach (03/01/20) Detachment at Right Foot, Partial 5th Ray, Open Approach (03/01/20) Labs on day of discharge: Laboratory Tests 03/01/20 03/01/20 03/01/20 15:52 15:52 15:52 WBC 6.8 RBC 3.08 L Hgb 8.5 L Hct 25.4 L MCV 82.5 MCH 27.6 MCHC 33.5 RDW 12.5 Plt Count 294 MPV 11.3 Immature Gran % (Auto) 0.9 H Neut % (Auto) 77.3 H Lymph % (Auto) 14.5 L Richardson % (Auto) 6.2 Eos % (Auto) 1.0 Baso % (Auto) 0.1 Lymph # (Auto) 1.0 L Richardson # (Auto) 0.4 Eos # (Auto) 0.1 Baso # (Auto) 0.0 Abs Immat Gran (auto) 0.06 H Absolute Neuts (auto) 5.2 Absolute Nucleated RBC 0.000 Nucleated RBC % (auto) 0.0 ESR PT INR Sodium Cancelled Potassium Cancelled Chloride Cancelled Carbon Dioxide Cancelled Anion Gap Cancelled BUN Cancelled Creatinine Cancelled Estim Creat Clear Calc Cancelled Estimated GFR Cancelled POC Glucose Random Glucose Cancelled Estimat Average Glucose Hemoglobin A1c % Lactic Acid 0.9 Calcium Cancelled Magnesium Total Bilirubin Direct Bilirubin AST ALT Alkaline Phosphatase C-Reactive Protein Total Protein Albumin Beta HCG, Quant Cancelled Urine Color Urine Appearance Urine pH Ur Specific [place] Urine Protein Urine Glucose (UA) Urine Ketones Urine Blood Urine Nitrite Ur Leukocyte Esterase Urine RBC Urine WBC Ur Squamous Epith Cells Urine Bacteria Ur 24 Hour Volume Ur Creatinine mg/dL Ur Creatinine 24 Hour Ur Total Protein 24 Hr Urine Test COVID-19 (CARO) COVID-19 Clin Com 03/01/20 03/01/20 03/01/20 15:52 15:52 15:53 WBC RBC Hgb Hct MCV MCH MCHC RDW Plt Count MPV Immature Gran % (Auto) Neut % (Auto) Lymph % (Auto) Richardson % (Auto) Eos % (Auto) Baso % (Auto) Lymph # (Auto) Richardson # (Auto) Eos # (Auto) Baso # (Auto) Abs Immat Gran (auto) Absolute Neuts (auto) Absolute Nucleated RBC Nucleated RBC % (auto) ESR 121 H PT 12.5 INR 1.1 Sodium Potassium Chloride Carbon Dioxide Anion Gap BUN Creatinine Estim Creat Clear Calc Estimated GFR POC Glucose Random Glucose Estimat Average Glucose Hemoglobin A1c % Lactic Acid Calcium Magnesium Cancelled Total Bilirubin Cancelled Direct Bilirubin Cancelled AST Cancelled ALT Cancelled Alkaline Phosphatase Cancelled C-Reactive Protein Cancelled Total Protein Cancelled Albumin Cancelled Beta HCG, Quant Urine Color Urine Appearance Urine pH Ur Specific [place] Urine Protein Urine Glucose (UA) Urine Ketones Urine Blood Urine Nitrite Ur Leukocyte Esterase Urine RBC Urine WBC Ur Squamous Epith Cells Urine Bacteria Ur 24 Hour Volume Ur Creatinine mg/dL Ur Creatinine 24 Hour Ur Total Protein 24 Hr Urine Test COVID-19 (CARO) COVID-19 S[employer] Chargers 03/01/20 03/01/20 03/01/20 16:06 16:07 16:42 WBC RBC Hgb Hct MCV MCH MCHC RDW Plt Count MPV Immature Gran % (Auto) Neut % (Auto) Lymph % (Auto) Richardson % (Auto) Eos % (Auto) Baso % (Auto) Lymph # (Auto) Richardson # (Auto) Eos # (Auto) Baso # (Auto) Abs Immat Gran (auto) Absolute Neuts (auto) Absolute Nucleated RBC Nucleated RBC % (auto) ESR PT INR Sodium Potassium Chloride Carbon Dioxide Anion Gap BUN Creatinine Estim Creat Clear Calc Estimated GFR POC Glucose Random Glucose Estimat Average Glucose 258 Hemoglobin A1c % 10.6 Lactic Acid Calcium Magnesium Total Bilirubin Direct Bilirubin AST ALT Alkaline Phosphatase C-Reactive Protein Total Protein Albumin Beta HCG, Quant Urine Color YELLOW Urine Appearance CLEAR Urine pH 6.5 Ur Specific [place] 1.020 Urine Protein 3+ H Urine Glucose (UA) 100 H Urine Ketones NEG Urine Blood 3+ H Urine Nitrite NEG Ur Leukocyte Esterase NEG Urine RBC 5-9 H Urine WBC 0 Ur Squamous Epith Cells 1+ Urine Bacteria 1+ Ur 24 Hour Volume Ur Creatinine mg/dL Ur Creatinine 24 Hour Ur Total Protein 24 Hr Urine Test POSITIVE H COVID-19 (CARO) Negative COVID-19 Lutonix Com See Note 03/01/20 03/01/20 03/01/20 19:47 19:47 19:48 WBC RBC Hgb Hct MCV MCH MCHC RDW Plt Count MPV Immature Gran % (Auto) Neut % (Auto) Lymph % (Auto) Richardson % (Auto) Eos % (Auto) Baso % (Auto) Lymph # (Auto) [place] # (Auto) Eos # (Auto) Baso # (Auto) Abs Immat Gran (auto) Absolute Neuts (auto) Absolute Nucleated RBC Nucleated RBC % (auto) ESR PT INR Sodium Cancelled 136 Potassium Cancelled 3.7 Chloride Cancelled 106 Carbon Dioxide Cancelled 25 Anion Gap Cancelled 9 L BUN Cancelled 19 H Creatinine Cancelled 0.82 Estim Creat Clear Calc Cancelled 111.8 Estimated GFR Cancelled > 60 POC Glucose Random Glucose Cancelled 131 H Estimat Average Glucose Hemoglobin A1c % Lactic Acid Calcium Cancelled 7.0 L Magnesium 1.9 1.9 Total Bilirubin Cancelled < 0.2 Direct Bilirubin Cancelled < 0.2 AST Cancelled 18 ALT Cancelled 13 Alkaline Phosphatase Cancelled 136 H C-Reactive Protein Cancelled 7.83 H Total Protein Cancelled 5.3 L Albumin Cancelled 2.2 L Beta HCG, Quant Cancelled 4739 Urine Color Urine Appearance Urine pH Ur Specific [place] Urine Protein Urine Glucose (UA) Urine Ketones Urine Blood Urine Nitrite Ur Leukocyte Esterase Urine RBC Urine WBC Ur Squamous Epith Cells Urine Bacteria Ur 24 Hour Volume Ur Creatinine mg/dL Ur Creatinine 24 Hour Ur Total Protein 24 Hr Urine Test COVID-19 (CARO) COVID-19 Clin Com 03/01/20 03/02/20 03/02/20 21:26 08:44 09:06 WBC 6.0 RBC 2.68 L Hgb 7.3 L Hct 22.0 L MCV 82.1 MCH 27.2 MCHC 33.2 RDW 12.6 Plt Count 237 MPV 10.8 Immature Gran % (Auto) 0.3 Neut % (Auto) 77.7 H Lymph % (Auto) 12.6 L Richardson % (Auto) 7.5 Eos % (Auto) 1.7 Baso % (Auto) 0.2 Lymph # (Auto) 0.8 L Richardson # (Auto) 0.5 Eos # (Auto) 0.1 Baso # (Auto) 0.0 Abs Immat Gran (auto) 0.02 Absolute Neuts (auto) 4.7 Absolute Nucleated RBC 0.000 Nucleated RBC % (auto) 0.0 ESR PT INR Sodium Potassium Chloride Carbon Dioxide Anion Gap BUN Creatinine Estim Creat Clear Calc Estimated GFR POC Glucose 125 H 110 Random Glucose Estimat Average Glucose Hemoglobin A1c % Lactic Acid Calcium Magnesium Total Bilirubin Direct Bilirubin AST ALT Alkaline Phosphatase C-Reactive Protein Total Protein Albumin Beta HCG, Quant Urine Color Urine Appearance Urine pH Ur Specific [place] Urine Protein Urine Glucose (UA) Urine Ketones Urine Blood Urine Nitrite Ur Leukocyte Esterase Urine RBC Urine WBC Ur Squamous Epith Cells Urine Bacteria Ur 24 Hour Volume Ur Creatinine mg/dL Ur Creatinine 24 Hour Ur Total Protein 24 Hr Urine Test COVID-19 (CARO) COVID-19 Clin Com 03/02/20 03/02/20 03/02/20 09:06 11:10 15:38 WBC RBC Hgb Hct MCV MCH MCHC RDW Plt Count MPV Immature Gran % (Auto) Neut % (Auto) Lymph % (Auto) [place] % (Auto) Eos % (Auto) Baso % (Auto) Lymph # (Auto) [place] # (Auto) Eos # (Auto) Baso # (Auto) Abs Immat Gran (auto) Absolute Neuts (auto) Absolute Nucleated RBC Nucleated RBC % (auto) ESR PT INR Sodium 134 L Potassium 3.9 Chloride 106 Carbon Dioxide 22 Anion Gap 10 L BUN 17 H Creatinine 0.79 Estim Creat Clear Calc 116.0 Estimated GFR > 60 POC Glucose 104 130 H Random Glucose 113 Estimat Average Glucose Hemoglobin A1c % Lactic Acid Calcium 7.1 L Magnesium Total Bilirubin Direct Bilirubin AST ALT Alkaline Phosphatase C-Reactive Protein Total Protein Albumin Beta HCG, Quant Urine Color Urine Appearance Urine pH Ur Specific [place] Urine Protein Urine Glucose (UA) Urine Ketones Urine Blood Urine Nitrite Ur Leukocyte Esterase Urine RBC Urine WBC Ur Squamous Epith Cells Urine Bacteria Ur 24 Hour Volume Ur Creatinine mg/dL Ur Creatinine 24 Hour Ur Total Protein 24 Hr Urine Test COVID-19 (CARO) COVID-19 Clin Com 03/02/20 03/03/20 03/03/20 21:18 07:33 11:26 WBC RBC Hgb Hct MCV MCH MCHC RDW Plt Count MPV Immature Gran % (Auto) Neut % (Auto) Lymph % (Auto) [place] % (Auto) Eos % (Auto) Baso % (Auto) Lymph # (Auto) [place] # (Auto) Eos # (Auto) Baso # (Auto) Abs Immat Gran (auto) Absolute Neuts (auto) Absolute Nucleated RBC Nucleated RBC % (auto) ESR PT INR Sodium Potassium Chloride Carbon Dioxide Anion Gap BUN Creatinine Estim Creat Clear Calc Estimated GFR POC Glucose 174 H 158 H 170 H Random Glucose Estimat Average Glucose Hemoglobin A1c % Lactic Acid Calcium Magnesium Total Bilirubin Direct Bilirubin AST ALT Alkaline Phosphatase C-Reactive Protein Total Protein Albumin Beta HCG, Quant Urine Color Urine Appearance Urine pH Ur Specific [place] Urine Protein Urine Glucose (UA) Urine Ketones Urine Blood Urine Nitrite Ur Leukocyte Esterase Urine RBC Urine WBC Ur Squamous Epith Cells Urine Bacteria Ur 24 Hour Volume Ur Creatinine mg/dL Ur Creatinine 24 Hour Ur Total Protein 24 Hr Urine Test COVID-19 (CARO) COVID-19 Lutonix Com 03/03/20 03/03/20 03/04/20 16:37 20:43 07:19 WBC RBC Hgb Hct MCV MCH MCHC RDW Plt Count MPV Immature Gran % (Auto) Neut % (Auto) Lymph % (Auto) [place] % (Auto) Eos % (Auto) Baso % (Auto) Lymph # (Auto) [place] # (Auto) Eos # (Auto) Baso # (Auto) Abs Immat Gran (auto) Absolute Neuts (auto) Absolute Nucleated RBC Nucleated RBC % (auto) ESR PT INR Sodium Potassium Chloride Carbon Dioxide Anion Gap BUN Creatinine Estim Creat Clear Calc Estimated GFR POC Glucose 156 H 228 H 203 H Random Glucose Estimat Average Glucose Hemoglobin A1c % Lactic Acid Calcium Magnesium Total Bilirubin Direct Bilirubin AST ALT Alkaline Phosphatase C-Reactive Protein Total Protein Albumin Beta HCG, Quant Urine Color Urine Appearance Urine pH Ur Specific [place] Urine Protein Urine Glucose (UA) Urine Ketones Urine Blood Urine Nitrite Ur Leukocyte Esterase Urine RBC Urine WBC Ur Squamous Epith Cells Urine Bacteria Ur 24 Hour Volume Ur Creatinine mg/dL Ur Creatinine 24 Hour Ur Total Protein 24 Hr Urine Test COVID-19 (CARO) COVID-19 Clin Com 03/04/20 03/04/20 03/04/20 07:30 10:55 12:08 WBC RBC Hgb Hct MCV MCH MCHC RDW Plt Count MPV Immature Gran % (Auto) Neut % (Auto) Lymph % (Auto) [place] % (Auto) Eos % (Auto) Baso % (Auto) Lymph # (Auto) [place] # (Auto) Eos # (Auto) Baso # (Auto) Abs Immat Gran (auto) Absolute Neuts (auto) Absolute Nucleated RBC Nucleated RBC % (auto) ESR PT INR Sodium Potassium Chloride Carbon Dioxide Anion Gap BUN Creatinine Estim Creat Clear Calc Estimated GFR POC Glucose 165 H 168 H Random Glucose Estimat Average Glucose Hemoglobin A1c % Lactic Acid Calcium Magnesium Total Bilirubin Direct Bilirubin AST ALT Alkaline Phosphatase C-Reactive Protein Total Protein Albumin Beta HCG, Quant Urine Color Urine Appearance Urine pH Ur Specific [place] Urine Protein Urine Glucose (UA) Urine Ketones Urine Blood Urine Nitrite Ur Leukocyte Esterase Urine RBC Urine WBC Ur Squamous Epith Cells Urine Bacteria Ur 24 Hour Volume 2200 Ur Creatinine mg/dL 53.97 Ur Creatinine 24 Hour 1.2 Ur Total Protein 24 Hr 06008 H Urine Test COVID-19 (CARO) COVID-19 Clin Com 03/04/20 03/05/20 03/05/20 16:49 07:11 11:19 WBC RBC Hgb Hct MCV MCH MCHC RDW Plt Count MPV Immature Gran % (Auto) Neut % (Auto) Lymph % (Auto) [place] % (Auto) Eos % (Auto) Baso % (Auto) Lymph # (Auto) [place] # (Auto) Eos # (Auto) Baso # (Auto) Abs Immat Gran (auto) Absolute Neuts (auto) Absolute Nucleated RBC Nucleated RBC % (auto) ESR PT INR Sodium Potassium Chloride Carbon Dioxide Anion Gap BUN Creatinine Estim Creat Clear Calc Estimated GFR POC Glucose 135 H 231 H 166 H Random Glucose Estimat Average Glucose Hemoglobin A1c % Lactic Acid Calcium Magnesium Total Bilirubin Direct Bilirubin AST ALT Alkaline Phosphatase C-Reactive Protein Total Protein Albumin Beta HCG, Quant Urine Color Urine Appearance Urine pH Ur Specific [place] Urine Protein Urine Glucose (UA) Urine Ketones Urine Blood Urine Nitrite Ur Leukocyte Esterase Urine RBC Urine WBC Ur Squamous Epith Cells Urine Bacteria Ur 24 Hour Volume Ur Creatinine mg/dL Ur Creatinine 24 Hour Ur Total Protein 24 Hr Urine Test COVID-19 (CARO) COVID-19 Clin Com Discharge Plan Discharge Patient Disposition: Left Against Medical Advice Referrals: [facility] [Primary Care Provider] - Discharge Medications: No Action amoxicillin-pot clavulanate [Augmentin] 875-125 mg tablet 1 tab PO BID Qty: 14 RF: 0 acetaminophen 500 mg tablet 2 tab PO Q6H PRN (Reason: Pain) RF: 0 lisinopril 5 mg tablet 1 tab PO DAILY RF: 0 albuterol sulfate 90 mcg/actuation HFA aerosol inhaler 2 puff PO Q4-6H PRN (Reason: Shortness Of Breath) RF: 0 Levemir FlexTouch U-100 Insuln 100 unit/mL (3 mL) insulin pen 40 unit subcut BEDTIME RF: 0 insulin lispro [Humalog U-100 Insulin] 100 unit/mL solution 0 unit subcut TID RF: 0 Discharge Orders: Discharge Order (Routine); Ordered 03/13/20 Ordered By: Babak Sexton Discharge Date/Time: 03/05/20 12:23 Care Plan Goals: Left AMA Health Concerns: Left AMA Plan of Treatment: Left AMA
== END 2020-03-05 12:23 | disposition left against medical advice (07) | DRG 818 ==
LOC: HO.ED 19:32 → HO.IMC 03-02 07:53
PROVIDERS: Internal Medicine; Nurse Practitioner Acute Care; Nurse Practitioner Family; Obstetrics & Gynecology; Physician Assistant; Surgery Vascular Surgery; Admitting Provider Internal Medicine; Emergency Provider Emergency Medicine; PCP Internal Medicine; Visit Provider Internal Medicine
PROC: 0Y6M0Z9 Detachment at Right Foot, Partial 1st Ray, Open Approach (ICD-10-PCS; principal; 2020-03-04 12:30)
DX: O24.011 Pre-existing type 1 diabetes mellitus, in pregnancy, first trimester (principal); O10.911 Unspecified pre-existing hypertension complicating pregnancy, first trimester; M86.9 Osteomyelitis, unspecified; E10.621 Type 1 diabetes mellitus with foot ulcer; E10.69 Type 1 diabetes mellitus with other specified complication; E10.319 Type 1 diabetes mellitus with unspecified diabetic retinopathy without macular edema; O99.011 Anemia complicating pregnancy, first trimester; D63.8 Anemia in other chronic diseases classified elsewhere; L97.519 Non-pressure chronic ulcer of other part of right foot with unspecified severity; E10.65 Type 1 diabetes mellitus with hyperglycemia; Z88.5 Allergy status to narcotic agent; Z20.828 Contact with and (suspected) exposure to other viral communicable diseases; O99.511 Diseases of the respiratory system complicating pregnancy, first trimester; Z3A.08 8 weeks gestation of pregnancy; J45.909 Unspecified asthma, uncomplicated; Z79.4 Long term (current) use of insulin; Z79.899 Other long term (current) drug therapy
CPT/HCPCS: 36415; 73630; 76801; 76817; 80048; 80076; 81001; 81025; 82947; 83036; 83605; 83735; 84156; 84702; 85025; 85610; 85652; 86140; 86901; 87040; 87071; 87077; 87147; 87186; 87205; 87635; 88305; 88311; 93923; 93925; 96365; 96367; 99285; J1100; J2250; J2405; J2543; J3010; J3370

== ENCOUNTER 2020-03-13 13:52 | Emergency (ER) | payer OTHER, SELFPAY ==
[2020-03-13 14:13] VITALS: BP 102/55; BP 162/78; PULSE 113; PULSE 92; RESP 22; TEMP 37.1; O2SAT 99; BMI 34.6
--- NOTE | 2020-03-13 14:18 | PC.NURSE ---
patient a&ox3, subacute nurse sinus tach 111, vss, provider at [facility], will continue to monitor
--- NOTE | 2020-03-13 14:27 | ED.GENADULT ---
HPI - General Adult General Chief complaint: General Medical Stated complaint: WOUND CHECK/INFECTION? Time Seen by Provider: 03/13/20 14:20 History of Present Illness HPI narrative: 29 years old presented today with a history of diabetes. Patient is status post transmetatarsal resection of the right foot. The procedure was done on March 24. Yesterday patient noted the sutures to have busted. Namely the area near the great toe has open. Patient denies any fever chills. Came in for this reason. Has a history of anxiety. Related Data Home Medications Medication Instructions Recorded Confirmed insulin lispro 100 unit/mL 0 unit SUBCUT TID 02/16/20 03/01/20 subcutaneous solution acetaminophen 2 tab PO Q6H PRN 03/01/20 03/01/20 albuterol sulfate 2 puff PO Q4-6H PRN 03/01/20 03/01/20 insulin detemir U-100 [Levemir 40 unit SUBCUT BEDTIME 03/01/20 03/01/20 FlexTouch U-100 Insuln] lisinopril 1 tab PO DAILY 03/01/20 03/01/20 Previous Rx's Medication Instructions Recorded amoxicillin-pot clavulanate 1 tab PO BID #14 tab 03/13/20 [Augmentin] Allergies Allergy/AdvReac Type Severity Reaction Status Date / Time morphine [MORPHINE] Allergy Severe ORAL Verified 02/16/20 14:35 SWELLING Review of Systems Review of Systems: Constitutional: No Weight loss, No Fever, No Chills, No Night Sweats, No Fatigue, No Malaise ENT/Mouth: No Hearing loss, No Ear Pain, No Nasal Congestion, No Sinus Pain, No Hoarseness, No sore throat, No Rhinorrhea, No Swallowing Difficulty Eyes: No Eye Pain, No Swelling, No Redness, No Foreign Body, No Discharge, No Vision Changes Cardiovascular: No Chest Pain, No SOB, No Dyspnea on Exertion, No Orthopnea, No Edema, No Palpitations Respiratory: No Cough, No Sputum, No Wheezing, No Smoke Exposure, No Dyspnea Gastrointestinal: No Nausea, No Vomiting, No Diarrhea, No Constipation, No abdominal Pain, No Hematochezia, No Melena Genitourinary: no irregular bleeding, No Dysuria, No Urinary Frequency, No Hematuria, No Urinary Incontinence, No Urgency, No Flank Pain, No Urinary Flow Changes, No Hesitancy Musculoskeletal: No joint pain, No Myalgias, No Joint Swelling Skin: Positive open jack on the right foot. Neuro: No Weakness, No Numbness, No Paresthesias, No Loss of Consciousness, No Dizziness, No Headache Psych: No Anxiety/Panic, No Depression, No SI/HI/AH/VH, No Social Issues, Heme/Lymph: No Bruising, No Bleeding,No Lymphadenopathy Endocrine: No Polyuria, No Polydipsia, No Temperature Intolerance [facility] Past Medical History Attestation statement: The following information was validated with the patient. Medical History Asthma Back pain Blind right eye Depression with anxiety Diabetes Diabetic retinopathy Essential hypertension HTN (hypertension) test positive Type 2 diabetes mellitus with hyperglycemia, with long-term current use of insulin Surgical History History of transmetatarsal amputation of foot Family History Family History Mother Coronary artery disease Myocardial infarction Stroke Diabetes mellitus Father Myocardial infarction Social History Social History Household Members: Significant Other Housing: Apartment Alcohol intake: never Smoking Status: Never smoker Use of substances other than those prescribed or required for medical reasons: No Advance Directives: No Advance Directives Information Provided: No service: No Gender identity: female Physical Exam Vital Signs: Vital Signs: Last Vital Signs Temp 98.8 F 03/13/20 14:13 Pulse 113 H 03/13/20 14:13 Resp 22 H 03/13/20 14:13 BP 102/55 L 03/13/20 14:13 Pulse Ox 99 03/13/20 14:13 Body Mass Index 34.6 Constitutional: No Weight loss, No Fever, No Chills, No Night Sweats, No Fatigue, No Malaise ENT/Mouth: No Hearing loss, No Ear Pain, No Nasal Congestion, No Sinus Pain, No Hoarseness, No sore throat, No Rhinorrhea, No Swallowing Difficulty Eyes: No Eye Pain, No Swelling, No Redness, No Foreign Body, No Discharge, No Vision Changes Cardiovascular: No Chest Pain, No SOB, No Dyspnea on Exertion, No Orthopnea, No Edema, No Palpitations Respiratory: No Cough, No Sputum, No Wheezing, No Smoke Exposure, No Dyspnea Gastrointestinal: No Nausea, No Vomiting, No Diarrhea, No Constipation, No abdominal Pain, No Hematochezia, No Melena Genitourinary: no irregular bleeding, No Dysuria, No Urinary Frequency, No Hematuria, No Urinary Incontinence, No Urgency, No Flank Pain, No Urinary Flow Changes, No Hesitancy Musculoskeletal: No joint pain, No Myalgias, No Joint Swelling Skin: Positive open jack over the right great toe area. Slight erythema surrounding it. There appears to be granulation tissue at the base of the opening. Pulses 2+ at dorsalis pedis. Sensation over the foot intact. Neuro: No Weakness, No Numbness, No Paresthesias, No Loss of Consciousness, No Dizziness, No Headache Psych: No Anxiety/Panic, No Depression, No SI/HI/AH/VH, No Social Issues, Heme/Lymph: No Bruising, No Bleeding,No Lymphadenopathy Endocrine: No Polyuria, No Polydipsia, No Temperature Intolerance Medical Decision Making MDM Narrative Medical decision making narrative: Patient has a wound that is open. Possibility of infection. Case discussed with Dr. Arias from vascular surgery. [place] patient should be admitted for further evaluation IV antibiotic and further closure of the wound. Patient refused. Understands the risk of infection. Understand the risk of . Understand the risk of loss and lifestyle. Patient refuse labs. Refuse IV antibiotics. Accepted p.o. antibiotics. Patient case discussed with Dr. Arias. She does not want inpatient care. Will see Dr. Arias on Sunday. Discharge Plan Discharge Clinical Impression: Type 2 diabetes mellitus with hyperglycemia, with long-term current use of insulin, Diabetic retinopathy, test positive, S/P transmetatarsal amputation of foot, Diabetic foot infection, Essential hypertension Patient Disposition: Left Against Medical Advice Instructions: Cellulitis (ED), Diabetic Foot Ulcers (ED), Against Medical Advice (ED), First Trimester (ED) Prescriptions: New amoxicillin-pot clavulanate [Augmentin] 875-125 mg tablet 1 tab PO BID Qty: 14 RF: 0 No Action acetaminophen 500 mg tablet 2 tab PO Q6H PRN (Reason: Pain) RF: 0 lisinopril 5 mg tablet 1 tab PO DAILY RF: 0 albuterol sulfate 90 mcg/actuation HFA aerosol inhaler 2 puff PO Q4-6H PRN (Reason: Shortness Of Breath) RF: 0 Levemir FlexTouch U-100 Insuln 100 unit/mL (3 mL) insulin pen 40 unit subcut BEDTIME RF: 0 insulin lispro [Humalog U-100 Insulin] 100 unit/mL solution 0 unit subcut TID RF: 0 Referrals: Nomi Arias MD [Physician] - 1 day
--- NOTE | 2020-03-13 14:30 | ECG_ITS ---
Test Reason : CHEST PAIN Blood Pressure : / mmHG Vent. Rate : 111 BPM Atrial Rate : 111 BPM P-R Int : 140 ms QRS Dur : 130 ms QT Int : 374 ms P-R-T Axes : 062 020 036 degrees QTc Int : 508 ms Sinus tachycardia Possible Left atrial enlargement Right bundle branch block Abnormal ECG When compared with ECG of 21-OCT-2018 17:51, Right bundle branch block is now Present Referred By: Sylvia Saxena Electronically Signed By:HATTIE BAÑUELOS MD
--- NOTE | 2020-03-13 14:49 | PC.NURSE ---
pt states her chest pain/discomfort is due to anxiety, patient also refusing bloodwork and does not want iv antibiotis- provider notified and will do po antibiotics
[2020-03-13] MEDS: Amoxicillin/Potassium Clav 875 MG TABLET PO (15:25)
--- NOTE | 2020-03-13 15:38 | PC.NURSE ---
patient felt that her blood sugar was low, poc was obtained, pt blood sugar was 49, patient a&ox3, notified provider, pt given orange juice and a turkey sandwich, patient currently eating, will recheck blood sugar shortly. will continue to monitor.
--- NOTE | 2020-03-13 15:41 | PC.NURSE ---
pt given po antibiotics per order
[2020-03-13 16:00] VITALS: BP 106/81; PULSE 100; RESP 18; TEMP 36.9; O2SAT 96
[2020-03-13 16:19] LABS: Glucose, Whole Blood 86 mg/dL (60-115)
[2020-03-13 16:19] LABS: Glucose, Whole Blood 49 mg/dL (60-115)
--- NOTE | 2020-03-13 16:22 | PC.NURSE ---
repeated blood sugar after patient finished eating/drinking at 1615, poc was 86, patient requested additional po- pt was given additional orange juice and crackers per her request, will continue to monitor.
--- NOTE | 2020-03-13 17:46 | PC.NURSE ---
3rd poc done, pt remains at 86 and wishes to be discharged as she does not wish to have any additional services
[2020-03-13 17:50] LABS: Glucose, Whole Blood 86 mg/dL (60-115)
== END 2020-03-13 17:46 | disposition left against medical advice (07) ==
PROVIDERS: Emergency Provider Emergency Medicine Emergency Medical Services
DX: E11.65 Type 2 diabetes mellitus with hyperglycemia (principal); E11.319 Type 2 diabetes mellitus with unspecified diabetic retinopathy without macular edema; L03.116 Cellulitis of left lower limb; L03.115 Cellulitis of right lower limb; I10 Essential (primary) hypertension; Z79.899 Other long term (current) drug therapy; Z79.4 Long term (current) use of insulin
CPT/HCPCS: 82947; 93005; 99283; 99284

== ENCOUNTER → 2020-03-30 15:35 | Outpatient (BNVA) | payer OTHER, SELFPAY | PROVIDERS: Visit Provider Surgery Vascular Surgery | DX: Z89.439 Acquired absence of unspecified foot (principal) | CPT/HCPCS: 99212 ==

== ENCOUNTER 2020-07-06 13:58 | Outpatient (RCR) | payer OTHER, SELFPAY | END 2020-12-06 14:00 | disposition home or self-care (01) | LOC: HO.WCC 13:58 | PROVIDERS: Visit Provider Physician Assistant | DX: E10.621 Type 1 diabetes mellitus with foot ulcer (principal); L97.522 Non-pressure chronic ulcer of other part of 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; L97.512 Non-pressure chronic ulcer of other part of right foot with fat layer exposed; L97.513 Non-pressure chronic ulcer of other part of right foot with necrosis of muscle; E10.40 Type 1 diabetes mellitus with diabetic neuropathy, unspecified; I10 Essential (primary) hypertension; L84 Corns and callosities; Z79.4 Long term (current) use of insulin; Z89.412 Acquired absence of left great toe; Z89.421 Acquired absence of other right toe(s); Z91.19 Patient's noncompliance with other medical treatment and regimen; Z79.2 Long term (current) use of antibiotics | CPT/HCPCS: 11042; 11043; 97597 ==

== ENCOUNTER 2020-08-19 19:25 | Emergency (ER) | payer OTHER, SELFPAY ==
[2020-08-19 19:53] VITALS: BP 210/106; PULSE 111; RESP 16; TEMP 36.9; O2SAT 100; BMI 32.8
[2020-08-19 20:08] LABS: Glucose, Whole Blood 442 mg/dL (60-115)
--- NOTE | 2020-08-19 21:57 | ED_ITS ---
HPI - General Adult General Chief complaint: Extremity Problem Stated complaint: knee swelling Time Seen by Provider: 08/19/20 21:32 Source: patient Mode of arrival: ambulatory Limitations: no limitations History of Present Illness HPI narrative: A 30-year-old female who presents emergency department for evaluation of a possible infection of her right lower extremity and elevated glucose secondary to running out of her insulin 3 days prior. The patient has a history of diabetes with osteomyelitis of the right foot requiring partial amputation in February of 2020. The patient states that she has a nonhealing wo und of the right foot and is managed by wound care. She states that yesterday her right foot and right leg became swollen. She states that she is having right-sided leg pain but this is chronic, the pain is a constant, sharp, moderate to severe pain which is worse with ambulation. The patient states that she ran out of her insulin 3 days prior and was not able to get a refill from her PCP therefore she has been noncompliant with her insulin regimen. The patient takes Levemir 45 units at night and insulin lispro on a sliding scale 3 times a day. She denied fever, chills, weakness, chest pain, shortness of breath, nausea, vomiting, abdominal pain. The patient has poor vision secondary to her diabetes and was not able to see that her right lower extremity was read but she did know that the right lower extremity was warm to the touch. Related Data Home Medications Medication Instructions Recorded Confirmed insulin lispro 100 unit/mL 0 unit SUBCUT TID 02/16/20 03/01/20 subcutaneous solution acetaminophen 2 tab PO Q6H PRN 03/01/20 03/01/20 albuterol sulfate 2 puff PO Q4-6H PRN 03/01/20 03/01/20 insulin detemir U-100 [Levemir 40 unit SUBCUT BEDTIME 03/01/20 03/01/20 FlexTouch U-100 Insuln] lisinopril 1 tab PO DAILY 03/01/20 03/01/20 Previous Rx's Medication Instructions Recorded amoxicillin-pot clavulanate 1 tab PO BID #14 tab 03/13/20 [Augmentin] cephalexin 500 mg PO QID 10 Days #40 cap 08/19/20 doxycycline hyclate 100 mg PO Q12H 10 Days #20 tab 08/19/20 insulin detemir U-100 [Levemir 45 unit SUBCUT BEDTIME #10 ml 08/19/20 U-100 Insulin] insulin lispro 13 unit SUBCUT TID #15 ml 08/19/20 Allergies Allergy/AdvReac Type Severity Reaction Status Date / Time morphine [MORPHINE] Allergy Severe ORAL Verified 03/30/20 15:43 SWELLING Review of Systems Review of Systems: Yes all other systems are reviewed and are negative Neurologic: Reports Abnormal speech present [facility] Past Medical History Medical History Asthma Back pain Blind right eye Depression with anxiety Diabetes Diabetic retinopathy Essential hypertension HTN (hypertension) test positive Type 2 diabetes mellitus with hyperglycemia, with long-term current use of insulin Surgical History History of transmetatarsal amputation of foot Family History Family History Mother Coronary artery disease Myocardial infarction Stroke Diabetes mellitus Father Myocardial infarction Social History Social History Household Members: Significant Other Household Members Other:: Sister, [id number], nephew Housing: Apartment Do you presently have visiting nurse or other home services: No Alcohol intake: never Advance Directives: No Advance Directives Information Provided: No Patient : No service: No Gender identity: female Physical Exam Vital Signs: Vital Signs: Last Vital Signs Temp 98.4 F 08/19/20 19:53 Pulse 111 H 08/19/20 19:53 Resp 16 08/19/20 19:53 BP 210/106 H 08/19/20 19:53 Pulse Ox 100 08/19/20 19:53 Body Mass Index 32.8 Const: General: cooperative Orientation/consciousness: oriented to person and oriented to place Limitations: no limitations HENMT: Head: Yes normal to inspection, Yes normocephalic and Yes atraumatic Ears: external ears normal General nose exam: Normal external nose present Face and sinus: Yes normal facial exam Mouth: Normal oral and palatal mucosa present Throat: Yes posterior oropharynx normal Eyes: Other: 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 and her right eye is blind, the patient's left on only has partial vision Periorbital: periorbital findings normal Eyelids: Yes eyelids normal Neck: Neck: Yes full ROM, Yes no lymphadenopathy, Yes no meningeal signs, Yes trachea midline and Yes supple Chest: Chest palpation & inspection: normal inspection of the chest and normal palpation of entire chest wall Resp: Effort & Inspection: normal respiratory effort and able to speak in complete sentences Auscultation: clear to auscultation bilaterally Cardio: Rate: regular rate Rhythm: regular rhythm Heart sounds: S1 normal heart sound present, S2 normal heart sound present and no murmurs GI: Inspection: Yes normal to inspection Palpation (GI): Soft to palpation, nontender, no guarding, not rigid and No hepatosplenomegaly present : General: Yes no CVA tenderness Back/Spine/Pelvis: Back: no CVA tenderness Cervical Spine: normal cervical lordosis Thoracic/Lumbar Spine: thoracic and lumbar spine normal to inspection Skin: Lesions: no lesions Rashes: no rashes Wounds: no wounds Neuro: General: oriented to person, oriented to place and no meningeal signs Cognition (Neuro): normal cognition Speech: Abnormal speech present Motor exam (neuro): 5/5 motor strength present throughout Extrem: Other: The patient has partial amputation of her right foot with necrosis over the 1st and 2nd metatarsal area, there is no purulent drainage. The patient has erythema from her foot to just below her knee on the right, erythema is warm to touch, the patient has soft tissue swelling of the right lower extremity compared to left from the foot to just below the knee. This is nonpitting edema. Psych: Appearance: well kempt Mental Status: mental status grossly normal Speech and movement: Normal speech and movement present Affect: normal affect Attitude: cooperative Thought process: Normal thought process present Thought content: Normal thought content present Course Course Course Narrative: 30-year-old female with a history of diabetes mellitus and osteomyelitis of the right foot requiring partial amputation who presents to the emergency department with pain swelling of the right foot and right leg since yesterday. Patient's physical findings revealed necrosis of the skin over the 1st and 2nd metatarsal region of the right foot with no purulent drainage, she also has swelling of the right leg from the foot to just been the knee and erythema of this area which is warm to touch. These findings are concerning for cellulitis and possible osteomyelitis. Patient also had a very elevated glucose of greater than 400 and this is secondary to her running out of her insulin 3 days prior and not being able to get a refill. The patient does not want any blood work, IV fluid or x-rays. She just wants to be started on antibiotics and discharged home. I did tell the patient had she has a serious, life-threatening infection of her right leg and that she could if she does not get hospitalized to get IV antibiotics. I also told her it is possible that she does not get treatment in the hospital her right leg may need to be amputated secondary to infection. The patient understood this discussion and despite the high risks of her leaving the hospital, she still wants to leave against medical advice. The patient was given Lantus (substituted for Levemir) 32 units subQ and insulin lispro 35 units subQ (this is based on her sliding scale insulin that she would take at home). She was given Keflex 500 mg orally and doxycycline 100 mg orally. She was given a prescription for doxycycline 100 mg twice a day for 10 days and Keflex 500 mg 4 times a day for 10 days. I will refill her outpatient insulin as well. The patient will be discharged against medical advice. I did tell her however that if she changes her mind or feels worse in any way she should return to the emergency department immediately for re-evaluation and treatment in the hospital. She was advised to follow-up with her doctor tomorrow for re-evaluation. Medical Decision Making Lab Data Labs: Lab Results 08/19/20 Range/Units 20:02 POC Glucose 442 H* (60-115) mg/dL Discharge Plan Discharge Clinical Impression: Cellulitis of right lower leg, Non-healing ulcer of right foot Patient Disposition: Left Against Medical Advice Instructions: Cellulitis (ED) Additional Instructions: You have a serious, life-threatening infection of your right leg and right foot. Also, your sugar (glucose) is very high which if untreated can lead to coma and . I recommended that you get IV antibiotics, IV insulin, IV fluid and that you stay in the hospital to get further treatment, however you disagree with my advice and want to leave the hospital against medical advise. Take Keflex (cephalexin) 500 mg pills, 1 pill 4 times a day for 10 days. Take doxycycline 100 mg pills, 1 pill twice a day for 10 days. I prescribed your Levmir and insulin lispro Tonight we gave you Lantus which is like Levemir, 32 units and insulin lispro 35 units subcutaneously. You should follow-up with your doctor tomorrow for a re-evaluation. If you change your mind at any time, please return to the emergency department and we will get you hospitalized for further treatment. Prescriptions: New cephalexin 500 mg capsule 500 mg PO QID 10 Days Qty: 40 RF: 0 doxycycline hyclate 100 mg tablet 100 mg PO Q12H 10 Days Qty: 20 RF: 0 Levemir U-100 Insulin 100 unit/mL solution 45 unit subcut BEDTIME Qty: 10 RF: 0 insulin lispro 100 unit/mL insulin pen 13 unit subcut TID Qty: 15 RF: 0 No Action amoxicillin-pot clavulanate [Augmentin] 875-125 mg tablet 1 tab PO BID Qty: 14 RF: 0 acetaminophen 500 mg tablet 2 tab PO Q6H PRN (Reason: Pain) RF: 0 lisinopril 5 mg tablet 1 tab PO DAILY RF: 0 albuterol sulfate 90 mcg/actuation HFA aerosol inhaler 2 puff PO Q4-6H PRN (Reason: Shortness Of Breath) RF: 0 Levemir FlexTouch U-100 Insuln 100 unit/mL (3 mL) insulin pen 40 unit subcut BEDTIME RF: 0 insulin lispro [Humalog U-100 Insulin] 100 unit/mL solution 0 unit subcut TID RF: 0 Stand Alone Forms: Against Medical Advice
[2020-08-19] MEDS: cephALEXin 500 MG CAPSULE PO (22:38)
[2020-08-19] MEDS: Ibuprofen 600 MG TABLET PO (22:39)
[2020-08-19] MEDS: Insulin Lispro 100 UNIT/ML 3 ML VIAL 35 UNIT SUBCUT (22:39)
[2020-08-19] MEDS: Insulin Glargine,Hum.rec.anlog 100 UNIT/ML 10 ML VIAL 32 UNIT SUBCUT (22:40)
--- NOTE | 2020-08-19 22:47 | PC.NURSE ---
PT ENCOURAGED TO CONTACT MD HAMILTON FOR RE EVALUATION OF RIGHT FOOT. PT NOT WILLING TO STAY, PT HAS KIDS AT HOME TO TAKE CARE OF.
== END 2020-08-19 23:22 | disposition left against medical advice (07) ==
PROVIDERS: Emergency Provider Emergency Medicine Emergency Medical Services; PCP Internal Medicine
DX: L03.115 Cellulitis of right lower limb (principal); E11.621 Type 2 diabetes mellitus with foot ulcer; L97.519 Non-pressure chronic ulcer of other part of right foot with unspecified severity; E11.65 Type 2 diabetes mellitus with hyperglycemia; T38.3X6A Underdosing of insulin and oral hypoglycemic [antidiabetic] drugs, initial encounter; Z91.128 Patient's intentional underdosing of medication regimen for other reason; Y92.9 Unspecified place or not applicable; I10 Essential (primary) hypertension; J45.909 Unspecified asthma, uncomplicated; Z79.4 Long term (current) use of insulin; Z79.899 Other long term (current) drug therapy; Z89.431 Acquired absence of right foot
CPT/HCPCS: 82947; 99283; 99285

== ENCOUNTER 2020-09-05 21:34 | Emergency (ER) | payer OTHER, SELFPAY ==
--- NOTE | ~2020-09-05 | XR_ITS ---
EXAMINATION: XR FOREARM, RIGHT CLINICAL INFORMATION: Arm injury COMPARISON: None TECHNIQUE: AP and lateral views of the right forearm were obtained. FINDINGS: Bones have normal alignment at the elbow and wrist. Small focus of ossification/enthesophyte of the triceps insertion on the olecranon. The radius and ulna are intact. The elbow and wrist joint spaces are maintained. Incidentally noted is ulnar negative variance. No focal soft tissue swelling or radiopaque foreign body. XR/XR forearm RT 2V IMPRESSION: No acute osseous injury in the right forearm.
[2020-09-05 21:38] VITALS: BP 151/84; PULSE 112; RESP 15; TEMP 37; O2SAT 100; BMI 31.3
== END 2020-09-06 00:20 | disposition left against medical advice (07) ==
PROVIDERS: Emergency Provider Emergency Medicine; PCP Internal Medicine
DX: M79.601 Pain in right arm (principal)
CPT/HCPCS: 73090; 99282; 99283

== ENCOUNTER 2020-09-13 19:43 | Emergency (ER) | payer OTHER, SELFPAY ==
--- NOTE | 2020-09-13 | ECG_ITS ---
Test Reason : DIZZY/FALL Blood Pressure : / mmHG Vent. Rate : 106 BPM Atrial Rate : 106 BPM P-R Int : 144 ms QRS Dur : 142 ms QT Int : 382 ms P-R-T Axes : 055 -14 047 degrees QTc Int : 507 ms Sinus tachycardia Possible Left atrial enlargement Right bundle branch block Left ventricular hypertrophy Abnormal ECG When compared with ECG of 13-MAR-2020 14:55, T wave inversion now evident in Anterior leads Referred By: Generic ED Physician Electronically Signed By:HATTIE BAÑUELOS MD
--- NOTE | ~2020-09-13 | XR_ITS ---
EXAMINATION: XR FOREARM, RIGHT CLINICAL INFORMATION: Status post fall with pain to extremity COMPARISON: None TECHNIQUE: AP and lateral views of the right forearm were obtained. FINDINGS: No significant elbow joint effusion. Bones are normal anatomic alignment with no acute fracture or dislocation seen. Well-corticated ossification posterior to the olecranon may represent sequela of prior olecranon bursitis. This does not appear to be an acute finding. This could be clinically correlated. Incidental ulnar negative variance of the wrist. Visualized carpal bones are grossly unremarkable. XR/XR forearm RT 2V IMPRESSION: Mild chronic appearing bony changes as described.
[2020-09-13 19:57] VITALS: BP 180/97; PULSE 102; RESP 18; TEMP 36.9; O2SAT 100; BMI 32.8
--- NOTE | 2020-09-13 21:02 | ED.EXTPRO ---
HPI - Extremity Problem General Chief complaint: Extremity Injury, Upper Stated complaint: Wound check Time Seen by Provider: 09/13/20 21:02 Source: patient Mode of arrival: ambulatory History of Present Illness HPI Narrative: 30-year-old female presents after FOOSH on to right hand with pain at the radial aspect of the wrist, but denies any numbness or tingling into the fingers. Patient is diabetic and states her LMP was last month. Related Data Home Medications Medication Instructions Recorded Confirmed insulin lispro 100 unit/mL 0 unit SUBCUT TID 02/16/20 03/01/20 subcutaneous solution acetaminophen 2 tab PO Q6H PRN 03/01/20 03/01/20 albuterol sulfate 2 puff PO Q4-6H PRN 03/01/20 03/01/20 insulin detemir U-100 [Levemir 40 unit SUBCUT BEDTIME 03/01/20 03/01/20 FlexTouch U-100 Insuln] lisinopril 1 tab PO DAILY 03/01/20 03/01/20 Previous Rx's Medication Instructions Recorded amoxicillin-pot clavulanate 1 tab PO BID #14 tab 03/13/20 [Augmentin] cephalexin 500 mg PO QID 10 Days #40 cap 08/19/20 doxycycline hyclate 100 mg PO Q12H 10 Days #20 tab 08/19/20 insulin detemir U-100 [Levemir 45 unit SUBCUT BEDTIME #10 ml 08/19/20 U-100 Insulin] insulin lispro 13 unit SUBCUT TID #15 ml 08/19/20 Allergies Allergy/AdvReac Type Severity Reaction Status Date / Time morphine [MORPHINE] Allergy Severe ORAL Verified 03/30/20 15:43 SWELLING Review of Systems Review of Systems: Pertinent positives and negatives as stated in HPI 10 point review of systems is otherwise negative. PMFSH Past Medical History Source: nursing notes reviewed Medical History Asthma Back pain Blind right eye Depression with anxiety Diabetes Diabetic retinopathy Essential hypertension HTN (hypertension) test positive Type 2 diabetes mellitus with hyperglycemia, with long-term current use of insulin Surgical History History of transmetatarsal amputation of foot Family History Family History Mother Coronary artery disease Myocardial infarction Stroke Diabetes mellitus Father Myocardial infarction Social History Social History Household Members: Significant Other Household Members Other:: Sister, [id number], nephew Housing: Apartment Do you presently have visiting nurse or other home services: No Alcohol intake: never Advance Directives: No Advance Directives Information Provided: Yes Patient : Yes service: No Gender identity: female Physical Exam Vital Signs: Vital Signs: Last Vital Signs Temp 98.4 F 09/13/20 19:57 Pulse 102 H 09/13/20 19:57 Resp 18 09/13/20 19:57 BP 180/97 H 09/13/20 19:57 Pulse Ox 100 09/13/20 19:57 Body Mass Index 32.8 VITAL SIGNS: Reviewed. GENERAL: Well developed, well nourished, in no acute distress. HEAD: Normocephalic/atraumatic EYES: PERRLA, LEFT EOMI, patient blind in right eye OROPHARYNX: no oral lesions noted, posterior pharynx clear LUNGS: Normal breath sounds. No adventitious sounds or accessory muscle use. SpO2<100> CARDIOVASCULAR: Regular rate and rhythm without noted murmurs ABDOMEN: Soft, non-tender, non-distended with bowel sounds. RIGHT UPPER EXTREMITY:, capillary refill less than 3 seconds, palpable radial and ulnar pulses SKIN: Inspection of the skin reveals no rashes NEUROLOGIC: Alert and oriented x 4. Strength and sensation to light touch were grossly intact x 4. Course Course Course Narrative: 30-year-old female with history and clinical presentation suggestive of possible fracture versus over extension injury. On review of all investigations no acute findings to suggest fracture or dislocation. Patient provided with an Izaiah wrap for symptomatic relief and discharged in stable condition. MDM - Extremity (Nontraumatic) Lab Data Labs: Lab Results 09/13/20 Range/Units 21:16 Specimen Comment DELAY Discharge Plan Discharge Clinical Impression: Pain in wrist Patient Disposition: Home, Self-Care Instructions: Wrist Injury (ED) Additional Instructions: 1. Recommend following up with your primary care provider for re-evaluation further outpatient management. 2. Recommend using [id number] Tylenol/ibuprofen as needed for any pain control. Return to the ER for acute worsening of symptoms. Prescriptions: No Action amoxicillin-pot clavulanate [Augmentin] 875-125 mg tablet 1 tab PO BID Qty: 14 RF: 0 acetaminophen 500 mg tablet 2 tab PO Q6H PRN (Reason: Pain) RF: 0 lisinopril 5 mg tablet 1 tab PO DAILY RF: 0 albuterol sulfate 90 mcg/actuation HFA aerosol inhaler 2 puff PO Q4-6H PRN (Reason: Shortness Of Breath) RF: 0 Levemir FlexTouch U-100 Insuln 100 unit/mL (3 mL) insulin pen 40 unit subcut BEDTIME RF: 0 cephalexin 500 mg capsule 500 mg PO QID 10 Days Qty: 40 RF: 0 doxycycline hyclate 100 mg tablet 100 mg PO Q12H 10 Days Qty: 20 RF: 0 Levemir U-100 Insulin 100 unit/mL solution 45 unit subcut BEDTIME Qty: 10 RF: 0 insulin lispro 100 unit/mL insulin pen 13 unit subcut TID Qty: 15 RF: 0 insulin lispro [Humalog U-100 Insulin] 100 unit/mL solution 0 unit subcut TID RF: 0 Referrals: Abdon Beard MD [Primary Care Provider] - 2 days
[2020-09-13 22:02] LABS: Delay - Chemistry DELAY
[2020-09-13 23:27] LABS: HCG Quantitative < 2 mIU/mL
== END 2020-09-13 23:43 | disposition home or self-care (01) ==
PROVIDERS: Emergency Provider Student in an Organized Health Care Education/Training Program; PCP Internal Medicine
DX: M25.531 Pain in right wrist (principal); E11.9 Type 2 diabetes mellitus without complications; I10 Essential (primary) hypertension; Z79.4 Long term (current) use of insulin; Z79.899 Other long term (current) drug therapy
CPT/HCPCS: 36415; 73090; 84702; 93005; 99283

== ENCOUNTER 2020-10-31 15:47 | Emergency (ER) | payer OTHER, SELFPAY ==
[2020-10-31 15:54] VITALS: BP 188/108; PULSE 110; RESP 18; TEMP 36.6; O2SAT 99; BMI 32.3
--- NOTE | 2020-10-31 16:35 | ED_ITS ---
HPI - General Adult General Chief complaint: Skin/Abscess/Foreign Body Stated complaint: leg infection Time Seen by Provider: 10/31/20 16:22 Source: patient Mode of arrival: ambulatory Limitations: no limitations History of Present Illness HPI narrative: 30-year-old female who presents emergency department for evalu ation of cellulitis of the right leg. The patient is a diabetic she states that she gets cellulitis almost every month of her right leg. She states that she developed redness and swelling today and went to the pharmacy to get a prescription for doxycycline filled. Apparently however the prescription was outdated and she was unable to fill this medication. Therefore, she came to the emergency department for evaluation for cellulitis and for antibiotics. The patient denied fever, chills, fatigue, weakness, chest pain, shortness of breath. The patient is followed by the wound care clinic and she states that when she gets the cellulitis they started on doxycycline 100 mg twice a day for 14 days. 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 Related Data Home Medications Medication Instructions Recorded Confirmed insulin lispro 100 unit/mL 0 unit SUBCUT TID 02/16/20 03/01/20 subcutaneous solution (Humalog U-100 Insulin) acetaminophen 500 mg tablet 2 tab PO Q6H PRN 03/01/20 03/01/20 albuterol sulfate 90 mcg/actuation 2 puff PO Q4-6H PRN 03/01/20 03/01/20 aerosol inhaler insulin detemir U-100 100 unit/mL 40 unit SUBCUT BEDTIME 03/01/20 03/01/20 (3 mL) subcutaneous pen (Levemir FlexTouch U-100 Insulin) lisinopril 5 mg tablet 1 tab PO DAILY 03/01/20 03/01/20 Previous Rx's Medication Instructions Recorded amoxicillin 875 mg-potassium 1 tab PO BID #14 tab 03/13/20 clavulanate 125 mg tablet (Augmentin) cephalexin 500 mg capsule 500 mg PO QID 10 Days #40 cap 08/19/20 doxycycline hyclate 100 mg tablet 100 mg PO Q12H 10 Days #20 tab 08/19/20 insulin detemir U-100 100 unit/mL 45 unit SUBCUT BEDTIME #10 ml 08/19/20 subcutaneous solution (Levemir U-100 Insulin) insulin lispro 100 unit/mL 13 unit SUBCUT TID #15 ml 08/19/20 subcutaneous pen doxycycline hyclate 100 mg tablet 100 mg PO Q12H 14 Days #28 tab 10/31/20 Allergies Allergy/AdvReac Type Severity Reaction Status Date / Time morphine [MORPHINE] Allergy Severe ORAL Verified 03/30/20 15:43 SWELLING Review of Systems Review of Systems: Yes all other systems are reviewed and are negative [facility] Past Medical History Medical History Asthma Back pain Blind right eye Depression with anxiety Diabetes Diabetic retinopathy Essential hypertension HTN (hypertension) test positive Type 2 diabetes mellitus with hyperglycemia, with long-term current use of insulin Surgical History History of transmetatarsal amputation of foot Family History Family History Mother Coronary artery disease Myocardial infarction Stroke Diabetes mellitus Father Myocardial infarction Social History Social History Household Members: Significant Other Household Members Other:: Sister, [id number], nephew Housing: Apartment Do you presently have visiting nurse or other home services: No Alcohol intake: never Advance Directives: No Advance Directives Information Provided: No Patient : No service: No Gender identity: Female Physical Exam Vital Signs: Vital Signs: Last Vital Signs Temp 97.9 F 10/31/20 15:54 Pulse 110 H 10/31/20 15:54 Resp 18 10/31/20 15:54 BP 188/108 H 10/31/20 15:54 Pulse Ox 99 10/31/20 15:54 Body Mass Index 32.3 Const: General: cooperative and no acute distress Orientation/consciousness: oriented to person and oriented to place Limitations: no limitations HENMT: Head: Yes normal to inspection, Yes normocephalic and Yes atraumatic Ears: external ears normal General nose exam: Normal external nose present Face and sinus: Yes normal facial exam Mouth: Normal oral and palatal mucosa present Throat: Yes posterior oropharynx normal Eyes: Other: Right eye blind with cloudy cornea and a red ring around the pupil, left eye-the patient states that she can not see through the a but has limited vision Neck: Neck: Yes normal visual inspection, Yes no lymphadenopathy, Yes trachea midline and Yes supple Chest: Chest palpation & inspection: normal inspection of the chest and normal palpation of entire chest wall Resp: Effort & Inspection: normal respiratory effort and able to speak in complete sentences Auscultation: clear to auscultation bilaterally Cardio: Rate: regular rate Rhythm: regular rhythm Heart sounds: S1 normal heart sound present, S2 normal heart sound present and no murmurs GI: Inspection: Yes normal to inspection Palpation (GI): Soft to palpation, nontender and no guarding Auscultation: normal bowel sounds : General: Yes no CVA tenderness Back/Spine/Pelvis: Back: no CVA tenderness Skin: General skin exam: no rashes or lesions noted Neuro: General: oriented to person and oriented to place Cranial nerves: Yes CN's II-XII intact bilaterally Cognition (Neuro): normal cognition Motor exam (neuro): 5/5 motor strength present throughout Extrem: Other: Right lower extremity, the patient has increased erythema and warmth from her foot to just below the knee, there is no purulent discharge from foot wound. There is swelling of the right leg compared to the left. Psych: Appearance: grossly normal Speech and movement: Normal speech and movement present Affect: normal affect Attitude: cooperative Thought process: Normal thought process present Thought content: Normal thought content present Course Course Course Narrative: 30-year-old female with history of recurrent cellulitis to her right lower extremity who presents emergency department for evaluation of 1 day of erythema, swelling and increased warmth of her right leg from the foot to just below the knee. Patient had no systemic symptoms. The patient has had similar presentations in the past and she states she does not on blood work and she does not want be admitted the hospital. Patient states that she has been successfully treated with oral doxycycline in the past which is requesting outpatient antibiotic treatment. The patient was given doxycycline 100 mg orally. She started on doxycycline 100 mg twice a day for 14 days. She was discharged home. The patient was given verbal and printed instructions prior to discharge. The patient was advised to follow-up with her PCP in 2 days and to return to the emergency department if her symptoms get worse or if she develops any new symptoms that are concerning to her. Discharge Plan Discharge Clinical Impression: Cellulitis of leg, right Patient Disposition: Home, Self-Care Instructions: Cellulitis (ED) Additional Instructions: Cellulitis Discharge Instructions You have an infection of your skin. This is called cellulitis. This is usually caused by bacteria on your skin that gets under your skin and then causes the infection Take doxycycline 100 mg pills, 1 pill every 12 hours for 14 days This is an antibiotic that should help your body fight off the infection. Keep the area of cellulitis elevated to help reduce swelling in the infected area and this helps with the healing process Also apply a heating pad on low or a warm compress for 15 minutes, 4-6 times a day. This will increase the blood flow to the area and will bring white blood cells to the area which will help your body fight off the infection. If we bertin a line around the area of cellulitis, the redness should withdraw from the line in the next 1-3 days. If the redness crosses the line this is a sign that the infection is getting worse and you should see your doctor or return to the Emergency Department for a recheck. Other signs of worsening infection include fever, chills, weakness, increased pain, increased redness, increased swelling or red streaks going away from the area of infection. If you develop any of these symptoms or any other symptoms that are concerning to you, see your doctor immediately or return to the Emergency Department. Follow up with your doctor in 3 days for a recheck Please read the other printed instructions that we printed for you. Prescriptions: New doxycycline hyclate 100 mg tablet 100 mg PO Q12H 14 Days Qty: 28 RF: 0 No Action amoxicillin-pot clavulanate [Augmentin] 875-125 mg tablet 1 tab PO BID Qty: 14 RF: 0 acetaminophen 500 mg tablet 2 tab PO Q6H PRN (Reason: Pain) RF: 0 lisinopril 5 mg tablet 1 tab PO DAILY RF: 0 albuterol sulfate 90 mcg/actuation HFA aerosol inhaler 2 puff PO Q4-6H PRN (Reason: Shortness Of Breath) RF: 0 Levemir FlexTouch U-100 Insuln 100 unit/mL (3 mL) insulin pen 40 unit subcut BEDTIME RF: 0 cephalexin 500 mg capsule 500 mg PO QID 10 Days Qty: 40 RF: 0 doxycycline hyclate 100 mg tablet 100 mg PO Q12H 10 Days Qty: 20 RF: 0 Levemir U-100 Insulin 100 unit/mL solution 45 unit subcut BEDTIME Qty: 10 RF: 0 insulin lispro 100 unit/mL insulin pen 13 unit subcut TID Qty: 15 RF: 0 insulin lispro [Humalog U-100 Insulin] 100 unit/mL solution 0 unit subcut TID RF: 0
[2020-10-31 16:58] VITALS: BP 200/106; PULSE 113; RESP 18; TEMP 37.1; O2SAT 99
[2020-10-31 17:11] VITALS: BP 175/89
== END 2020-10-31 17:32 | disposition home or self-care (01) ==
PROVIDERS: Emergency Provider Emergency Medicine Emergency Medical Services
DX: L03.115 Cellulitis of right lower limb (principal); M79.661 Pain in right lower leg; Z79.899 Other long term (current) drug therapy
CPT/HCPCS: 99284

== ENCOUNTER 2020-11-08 10:49 | Emergency (ER) | payer OTHER, SELFPAY ==
--- NOTE | ~2020-11-08 | XR_ITS ---
EXAMINATION: XR CHEST CLINICAL INFORMATION: Chest pain COMPARISON: Previous chest x-ray September 2018 TECHNIQUE: Frontal view of the chest was obtained. FINDINGS: No significant abnormality is noted involving the heart, lungs, mediastinum, bony thorax or soft tissues. XR/XR chest 1V IMPRESSION: Unremarkable examination.
[2020-11-08 11:35] VITALS: BP 157/85; PULSE 121; RESP 22; TEMP 36.2; O2SAT 98; BMI 29.0
--- NOTE | 2020-11-08 11:40 | ECG_ITS ---
Test Reason : CHEST PAIN Blood Pressure : / mmHG Vent. Rate : 093 BPM Atrial Rate : 093 BPM P-R Int : 144 ms QRS Dur : 146 ms QT Int : 450 ms P-R-T Axes : 054 000 047 degrees QTc Int : 559 ms Normal sinus rhythm Possible Left atrial enlargement Right bundle branch block Abnormal ECG When compared with ECG of 13-SEP-2020 20:16, T wave inversion no longer evident in Anterior leads QT has lengthened Referred By: Generic ED Physician Electronically Signed By:JULIÁN CANCINO
[2020-11-08] MEDS: Acetaminophen 325 MG TABLET 650 MG PO (11:43)
[2020-11-08 18:23] VITALS: BP 114/65; PULSE 91; RESP 18; TEMP 35.7; O2SAT 99
== END 2020-11-08 18:33 | disposition left against medical advice (07) ==
PROVIDERS: Emergency Provider Emergency Medicine
DX: R11.2 Nausea with vomiting, unspecified (principal); R07.9 Chest pain, unspecified
CPT/HCPCS: 71045; 93005; 99283

== ENCOUNTER 2020-12-06 17:20 | Inpatient (IN) | payer OTHER, SELFPAY ==
--- NOTE | ~2020-12-06 | US_ITS ---
EXAMINATION: NONINVASIVE ASSESSMENT OF THE ARTERIES OF BOTH LOWER EXTREMITIES WITH PVR EXAM AND BILATERAL LOWER EXTREMITY DUPLEX CLINICAL INFORMATION: Nonhealing ulcer. History of amputation of the bilateral toes TECHNIQUE: Ankle pulse volume recordings, ankle pressure measurements and ankle brachial indices were obtained of the lower extremity arterial system bilaterally in addition to duplex Doppler techniques with wave form analysis and measurement of velocities in the common femoral, profunda femoral, superficial femoral, popliteal and tibial arteries. The study was performed only at rest. COMPARISON: Previous exam February 2020 FINDINGS: a) AT REST: RIGHT LE. The right ankle-brachial index is: 1.1 2. Right ankle pressure: Dampened 3. Right ankle PVR waveform: Dampened 4. Right direct duplex Doppler findings: There is evidence of mild atherosclerotic disease. * Common femoral artery: 101 cm/s, Diastolic flow reversal: Yes * Superficial femoral artery (proximal, mid, distal): 112, 134 and 128 cm/s, Diastolic flow reversal: Yes * Popliteal artery: 84 cm/s, Diastolic flow reversal: Yes * Posterior tibial artery: 85 cm/s, Diastolic flow reversal: Yes LEFT LE. The left ankle-brachial index is normal: Left DP is inaudible. 2. Left ankle pressure: Abnormal 3. Left ankle PVR waveform: Abnormal 4. Left direct duplex Doppler findings: There is evidence of mild atherosclerotic disease. * Common femoral artery: 160 cm/s, Diastolic flow reversal: No * Superficial femoral artery (proximal, mid, distal): 156, 172 and 204 cm/s, Diastolic flow reversal: Yes * Popliteal artery: 145 cm/s, Diastolic flow reversal: Yes * Posterior tibial artery: 158 cm/s, Diastolic flow reversal: Yes There is left inguinal lymphadenopathy. There may be adenopathy in the popliteal fossa. MAYA Reference: * >0.97-1.25 = normal - no significant arterial disease * 0.75-0.96 = mild peripheral arterial disease * 0.5-0.74 = moderate peripheral arterial disease * <0.50 = severe peripheral arterial disease US/US arterial duplex LE BI IMPRESSION: Right: Increased peak systolic velocities in the mid and distal SFA suggestive of atherosclerotic disease. No visible stenosis seen. The right MAYA is 1.1 Left: Increased peak systolic velocities and diffuse loss of diastolic flow reversal suggestive of moderate atherosclerotic disease. No visible stenosis seen. The left MAYA is 1.1.
--- NOTE | ~2020-12-06 | XR_ITS ---
EXAMINATION: XR FOOT, LEFT CLINICAL INFORMATION: Bony erosion possible chronic wound COMPARISON: Directly compared to the 09/07/2018 study TECHNIQUE: AP, lateral, and oblique views of the left foot. FINDINGS: Extensive chronic appearing and postoperative changes are again seen. There is previous amputation of the mid first metatarsal onward as well as amputation of the fifth toe. There is extensive chronic bony remodeling and deformity to the distal fourth, third, and second metatarsals. There is chronic periosteal reaction and bony callus in these regions. This is not have typical acute bony destructive appearance with more chronic appearing changes. Extensive deformity and remodeling of the midfoot with chronic sclerosis. Significant soft tissue swelling about the midfoot. I do not appreciate any definitive acute fracture or dislocation superimposed on these extensive degenerative changes.. XR/XR foot LT 2V IMPRESSION: Significant soft tissue swelling. Chronic bony deformities to the midfoot suggesting underlying neuropathic osteoarthropathy postoperative changes with chronic periosteal changes to the second third and fourth metatarsals but I do not appreciate any additional acute bony destructive lesions. MRI of the foot may be helpful if there is persistent clinical concern.
--- NOTE | ~2020-12-06 | MR_ITS ---
EXAMINATION: MRI FOOT WITHOUT AND WITH CONTRAST, LEFT CLINICAL INFORMATION: Evaluate for osteomyelitis, foot wound COMPARISON: Radiographs 12/06/2020 TECHNIQUE: MRI without and with intravenous administration of 10 mL of Gadavist is performed on the left foot. FINDINGS: There are neuropathic changes with fractures, subluxations, and fragmentation across the midfoot involving the navicular, cuboid, cuneiforms, and the 2nd and 3rd metatarsal bases which are dorsally dislocated. There is associated marrow edema and joint effusions. However, there are 2 dorsal skin ulcerations identified with peripherally enhancing sinus tract extending Into the deep soft tissues which appears to be contiguous with the dorsally dislocated 2nd and 3rd metatarsal bases and underlying neuropathic changes. There has been amputation at the mid aspect of the 1st metatarsal as well as amputation of the 5th toe. Chronic traumatic and/or postsurgical changes of the distal 4th metatarsal and chronic deformity of the 2nd metatarsal head. No evidence of active osteomyelitis in these locations. MR/MR foot LT wo/w con IMPRESSION: Charcot arthropathy of the midfoot as described. Given the superficial soft tissue ulcerations and sinus tract extension to the neuropathic changes, superinfection and osteomyelitis is suspected. The extent of the osteomyelitis is uncertain as imaging characteristics of osteomyelitis and active neuropathic changes are similar.
[2020-12-06 17:30] VITALS: BP 147/82; BP 164/75; PULSE 120; RESP 22; TEMP 37.3; O2SAT 100; O2SAT 98; BMI 32.3
--- NOTE | 2020-12-06 17:45 | ED_ITS ---
HPI - Extremity Problem General Chief complaint: Wound/Laceration Stated complaint: rt foot infection Time Seen by Provider: 12/06/20 17:43 Source: patient Mode of arrival: EMS History of Present Illness HPI Narrative: Patient diabetic legally blind, hypertension, bilateral transmetatarsal amputation noticed pain in her left foot for last few days her fiance noticed open wound on the dorsum with purulent discharge.. Patient's blood sugar was also slightly elevated 300 range at home. Patient denies any fever no nausea no vomiting complaining of increasing pain in the left leg Related Data Home Medications Medication Instructions Recorded Confirmed insulin lispro 100 unit/mL 0 unit SUBCUT TID 02/16/20 03/01/20 subcutaneous solution (Humalog U-100 Insulin) amlodipine 2.5 mg tablet 1 tab PO DAILY 12/07/20 12/07/20 empagliflozin 10 mg tablet 1 tab PO QAM 12/07/20 12/07/20 (Jardiance) insulin aspart U-100 100 unit/mL 50 unit SUBCUT DIRECTED PRN 12/07/20 12/07/20 (3 mL) subcutaneous pen (Novolog Flexpen U-100 Insulin aspart) insulin detemir U-100 100 unit/mL 43 unit SUBCUT DAILY 12/07/20 12/07/20 (3 mL) subcutaneous pen (Levemir FlexTouch U-100 Insulin) lisinopril 20 mg tablet 1 tab PO DAILY 12/07/20 12/07/20 Previous Rx's Medication Instructions Recorded insulin lispro 100 unit/mL 13 unit SUBCUT TID #15 ml 08/19/20 subcutaneous pen doxycycline hyclate 100 mg tablet 100 mg PO Q12H 14 Days #28 tab 10/31/20 Allergies Allergy/AdvReac Type Severity Reaction Status Date / Time morphine [MORPHINE] Allergy Severe ORAL Verified 03/30/20 15:43 SWELLING Review of Systems Review of Systems: Yes all other systems are reviewed and are negative PMFSH Past Medical History Medical History Asthma Back pain Blind right eye Depression with anxiety Diabetes Diabetic retinopathy Essential hypertension HTN (hypertension) test positive Type 2 diabetes mellitus with hyperglycemia, with long-term current use of ins ulin Surgical History History of transmetatarsal amputation of foot Family History Family History Mother Coronary artery disease Myocardial infarction Stroke Diabetes mellitus Father Myocardial infarction Social History Social History Household Members: Significant Other Household Members Other:: Sister, [id number], nephew Housing: Apartment Do you presently have visiting nurse or other home services: No Alcohol intake: unknown Patient Tobacco Use Status: Never used Tobacco Use of substances other than those prescribed or required for medical reasons: Unknown Advance Directives: No Advance Directives Information Provided: No Patient : No service: No Gender identity: Female Physical Exam Vital Signs: Vital Signs: Last Vital Signs Temp 99.5 F 12/06/20 23:53 Pulse 94 12/06/20 23:53 Resp 16 12/06/20 23:53 BP 127/77 12/06/20 23:53 Pulse Ox 98 12/06/20 23:53 Body Mass Index 32.3 Const: General: healthy appearing and in distress mild O rientation/consciousness: oriented to person and oriented to place HENMT: Head: Yes normal to inspection and Yes normocephalic Mouth: Normal oral and palatal mucosa present Eyes: Other: Legally blind both eyes Neck: Neck: Yes normal visual inspection Resp: Effort & Inspection: normal respiratory effort Auscultation: clear to auscultation bilaterally Cardio: Palpation: normal PMI Rate: regular rate Rhythm: regular rhythm Heart sounds: S1 normal heart sound present and S2 normal heart sound present Peripheral pulses: Peripheral pulses 2+ throughout GI: Inspection: Yes normal to inspection Palpation (GI): Soft to palpation and nontender : General: Yes no CVA tenderness Back/Spine/Pelvis: Back: no CVA tenderness Neuro: General: oriented to person, oriented to place and no focal motor deficits Extrem: Other: Left foot with open wound with erythema and warmth and purulent discharge on the dorsum Ankle/foot/toe images: 1. Open wounds on the dorsum of the left foot and sole picture attached MDM - Extremity (Nontraumatic) MDM Narrative Medical decision making narrative: Patient has significant infection of left foot with open wounds and cellulitis will admit patient for cellulitis and infected wound. Patient noticed to be very anemic 6.2 hemoglobin hematocrit 20.1 patient legally blind cannot see her stool but says that there was no blood in the stool , refused to have a rectal exam denies any menorrhagia never had any blood transfusion before. Will do type and screen and hold the blood Patient refused blood transfusion understood the consequences Lab Data Attestation: I reviewed the patient's lab results. Result diagrams: 12/06/20 18:47 12/06/20 18:47 Labs: Lab Results 12/06/20 12/06/20 12/06/20 Range/Units 18:47 18:47 18:47 WBC 11.5 H (4.8-10.8) X10*3/uL RBC 2.44 L (4.20-5.50) X10*6/uL Hgb 6.2 L* (12.0-16.0) g/dl Hct 20.1 L* (37-47) % MCV 82.4 (80-98) fL MCH 25.4 L (27.0-33.0) pg MCHC 30.8 L (31.0-35.0) g/dl RDW 13.7 (11.0-16.0) % Plt Count 331 D (160-400) X10*3/uL MPV 10.3 (9.4-12.3) fL Immature Gran % (Auto) 0.5 H (0.0-0.4) % Neut % (Auto) 87.3 H (45-73) % Lymph % (Auto) 6.6 L (20-40) % [place] % (Auto) 5.1 (2-11) % Eos % (Auto) 0.3 (0-4) % Baso % (Auto) 0.2 (0-2) % Lymph # (Auto) 0.8 L (1.2-4.9) X10*3/uL [place] # (Auto) 0.6 (0.1-1.2) X10*3/uL Eos # (Auto) 0.0 (0.0-0.4) X10*3/uL Baso # (Auto) 0.0 (0.0-0.2) X10*3/uL Abs Immat Gran (auto) 0.06 H (0.00-0.03) X10*3/uL Absolute Neuts (auto) 10.0 H (2.0-8.3) X10*3/uL Absolute Nucleated RBC 0.000 (0.0-0.012) X10*3/uL Nucleated RBC % (auto) 0.0 (0.0-0.2) /100WBC VBG pH (7.32-7.43) VBG pCO2 mmHg VBG pO2 mmHg VBG HCO3 (22-26) mmol/L VBG O2 Saturation % VBG Base Excess mmol/L Sodium 136 (135-145) mmol/L Potassium 3.6 (3.3-5.1) mmol/L Chloride 103 (96-108) mmol/L Carbon Dioxide 25 (22-29) mmol/L Anion Gap 12 (12-20) BUN 12 (9-16) mg/dL Creatinine 1.43 H (0.5-1.4) mg/dL Estim Creat Clear Calc 64.0 Estimated GFR 43 Random Glucose 227 H (60-115) mg/dL Lactic Acid (0.5-2.0) mmol/L Calcium 7.3 L (8.4-10.2) mg/dL Iron 13 L (30-160) mcg/dL TIBC 134 L (228-428) mcg/dL % Saturation 10 L (15-50) % Unsat Iron Binding 121 ug/dL Ferritin 228 H (10-122) ng/mL Total Bilirubin 0.4 (0.0-1.0) mg/dL AST 9 D (5-31) U/L ALT < 6 (0-31) U/L Alkaline Phosphatase 131 H (39-117) U/L Total Protein 6.8 D (6.5-8.0) g/dL Albumin 2.1 L (3.5-5.0) g/dL Acetone, Qual (Negative) COVID-19 (CARO) Negative (Negative) COVID-19 Clin Com See Note 12/06/20 12/06/20 12/06/20 Range/Units 18:47 18:47 18:52 WBC (4.8-10.8) X10*3/uL RBC (4.20-5.50) X10*6/uL Hgb (12.0-16.0) g/dl Hct (37-47) % MCV (80-98) fL MCH (27.0-33.0) pg MCHC (31.0-35.0) g/dl RDW (11.0-16.0) % Plt Count (160-400) X10*3/uL MPV (9.4-12.3) fL Immature Gran % (Auto) (0.0-0.4) % Neut % (Auto) (45-73) % Lymph % (Auto) (20-40) % [place] % (Auto) (2-11) % Eos % (Auto) (0-4) % Baso % (Auto) (0-2) % Lymph # (Auto) (1.2-4.9) X10*3/uL [place] # (Auto) (0.1-1.2) X10*3/uL Eos # (Auto) (0.0-0.4) X10*3/uL Baso # (Auto) (0.0-0.2) X10*3/uL Abs Immat Gran (auto) (0.00-0.03) X10*3/uL Absolute Neuts (auto) (2.0-8.3) X10*3/uL Absolute Nucleated RBC (0.0-0.012) X10*3/uL Nucleated RBC % (auto) (0.0-0.2) /100WBC VBG pH 7.41 (7.32-7.43) VBG pCO2 37 mmHg VBG pO2 47 mmHg VBG HCO3 24 (22-26) mmol/L VBG O2 Saturation 74.0 % VBG Base Excess 0.0 mmol/L Sodium (135-145) mmol/L Potassium (3.3-5.1) mmol/L Chloride (96-108) mmol/L Carbon Dioxide (22-29) mmol/L Anion Gap (12-20) BUN (9-16) mg/dL Creatinine (0.5-1.4) mg/dL Estim Creat Clear Calc Estimated GFR Random Glucose (60-115) mg/dL Lactic Acid 0.7 (0.5-2.0) mmol/L Calcium (8.4-10.2) mg/dL Iron (30-160) mcg/dL TIBC (228-428) mcg/dL % Saturation (15-50) % Unsat Iron Binding ug/dL Ferritin (10-122) ng/mL Total Bilirubin (0.0-1.0) mg/dL AST (5-31) U/L ALT (0-31) U/L Alkaline Phosphatase (39-117) U/L Total Protein (6.5-8.0) g/dL Albumin (3.5-5.0) g/dL Acetone, Qual Negative (Negative) COVID-19 (CARO) (Negative) COVID-19 Clin Com Discharge Plan Discharge Clinical Impression: Cellulitis and abscess of foot, Severe anemia Patient Disposition: Admitted As Inpatient
[2020-12-06] MEDS: 0.9 % Sodium Chloride 1,000 ML 999 ML IVCONT (18:15)
[2020-12-06 18:16] VITALS: RESP 16
[2020-12-06] MEDS: ondansetron HCL 4 MG/2 ML VIAL IVPUSH (18:16)
[2020-12-06] MEDS: HYDROmorphone HCl 1 MG/ML SYRINGE IVPUSH (18:16)
[2020-12-06 18:53] LABS: MANUAL DIFF FLAG NO
[2020-12-06 18:56] LABS: Venous Blood Gas Refer to POC result
[2020-12-06 18:57] LABS: VBG HCO3 24 mmol/L (22-26); VBG pCO2 37 mmHg; VBG pH 7.41 (7.32-7.43); VBG pO2 47 mmHg
[2020-12-06] MEDS: Piperacillin Sodium/Tazobactam 3.375 GM in 0.9 % Sodium Chloride 50 ML IV (19:00)
[2020-12-06 19:05] LABS: Acetone, serum QL Negative (Negative)
[2020-12-06 19:10] LABS: Lactic Acid 0.7 mmol/L (0.5-2.0)
[2020-12-06 19:11] LABS: COVID-19 Test Negative (Negative)
[2020-12-06 19:12] LABS: Basophils Percent Auto 0.2 % (0-2); Eosinophils Percent Auto 0.3 % (0-4); Imm Gran Abs Auto 0.06 X10*3/uL (0.00-0.03); Imm Gran Pct Auto 0.5 % (0.0-0.4); Lymphocytes Absolute Auto 0.8 X10*3/uL (1.2-4.9); Lymphocytes Percent Auto 6.6 % (20-40); Mean Corpuscular HGB Conc 30.8 g/dl (31.0-35.0); Mean Corpuscular Hemoglobin 25.4 pg (27.0-33.0); Mean Corpuscular Volume 82.4 fL (80-98); Mean Platelet Volume 10.3 fL (9.4-12.3); Monocytes Absolute Auto 0.6 X10*3/uL (0.1-1.2); Monocytes Percent Auto 5.1 % (2-11); Neutrophils Percent Auto 87.3 % (45-73); Platelet Count 331 X10*3/uL (160-400); Red Blood Count 2.44 X10*6/uL (4.20-5.50); Red Cell Distribution Width 13.7 % (11.0-16.0); White Blood Count 11.5 X10*3/uL (4.8-10.8)
[2020-12-06 19:15] LABS: Hematocrit 20.1 % (37-47)
[2020-12-06 19:17] LABS: Hemoglobin 6.2 g/dl (12.0-16.0)
[2020-12-06 19:20] LABS: Alanine Aminotransferase < 6 U/L (0-31); Albumin Level 2.1 g/dL (3.5-5.0); Alkaline Phosphatase 131 U/L (39-117); Anion Gap 12 (12-20); Aspartate Amino Transferase 9 U/L (5-31); Bilirubin Total 0.4 mg/dL (0.0-1.0); Blood Urea Nitrogen 12 mg/dL (9-16); Calcium 7.3 mg/dL (8.4-10.2); Carbon Dioxide 25 mmol/L (22-29); Chloride 103 mmol/L (96-108); Estimated Glomerular Filt Rate 43; Glucose Random 227 mg/dL (60-115); Potassium 3.6 mmol/L (3.3-5.1); Sodium 136 mmol/L (135-145); Total Protein 6.8 g/dL (6.5-8.0)
--- NOTE | 2020-12-06 19:56 | PHA.PROG ---
Admission Date/Time: 12/06/20 @ 20:00 Indication: BONE/JOINT INF Weight in k.718 kg Adjusted body weight in K.8 [place] body weight in K.3 Obesity Dosing Indication % IBW: ~53% OVER Serum Creatinine - Last 168 Hours 12/06/20 18:47 Creatinine 1.43 H Estimated CrCl and GFR - Last 168 Hours 12/06/20 18:47 Estim Creat Clear Calc 64.0 Estimated GFR 43 Vancomycin Loading Dose: 1000MG X 1 Current Vancomycin Dosing Regimen: 750 MG Q12H Vancomycin Monitoring using AUC goal of 400 - 600 range with trough as surrogate marker: 426 MG/L.HR Date and Time for next Vancomycin Level to be drawn: 12/08/20 @ 0800 Pharmacist Comments on Vancomycin Plan: N/A Vancomycin dosing will take advantage of [employer] as a clinical decision support tool that uses Bayesian modeling to calculate individual patient's pharmacokinetic parameters and forecast the patient's drug concentration time course with the target goal AUC 24 range of 400 - 600 mg/L/hr.
[2020-12-06 20:00] VITALS: BP 158/91; PULSE 103; RESP 21; TEMP 37.3; O2SAT 98
[2020-12-06] MEDS: vancomycin HCL 1,000 MG in 0.9 % Sodium Chloride 250 ML 270 MG IV (20:18)
--- NOTE | 2020-12-06 20:42 | PC.NURSE ---
Patient's blood count is hgb of 6.2. ED provider at bedside to do rectal exam for occult blood. Patient refused the rectal exam and as well as the blood transfusion. ED provider attempted to convince the patient but she still is refusing the blood transfusion.
[2020-12-06 20:54] LABS: Iron 13 mcg/dL (30-160); Percent Iron Saturation 10 % (15-50); Total Iron Binding Capacity 134 mcg/dL (228-428); Unsaturated Iron Binding 121 ug/dL
[2020-12-06 21:14] LABS: Ferritin 228 ng/mL (10-122)
--- NOTE | 2020-12-06 23:19 | PM.IMHP ---
History of Present Illness Date of Service: 12/06/20 Chief Complaint: Right foot pain redness and swelling 30-year-old female with a past medical history of hypertension, diabetes, diabetic retinopathy, legally blind, history of diabetic foot ulcers, history of osteomyelitis status post right and left toe amputations; has chronic wound on the foot-[facility] with [facility]; last visit was 2 weeks ago; presented to the hospital today with a chief complaint of right foot dorsum ulcer, pain, swelling, redness. Patient reports that symptoms started about 2 weeks ago; gradually increasing; denies any chest pain palpitations. Denies any fever chills cough. Denies any numbness tingling or focal weakness. Reports that she does have dressing at home daily for the wounds. Denies any falls or trauma. Denies any abdominal pain. Patient denies any melena bright red blood per rectum. Denies any blood in the vomitus. Denies any menstruations currently. Review of all other systems is negative except mentioned above ER course: Per ER team patient noted to have dorsum of the foot ulcer; erythema extending up over the lower legs; given antibiotics for diabetic foot ulcer. X-ray showed no evidence of gas, noted chronic changes-postsurgical. Patient also noted a hemoglobin of 6; denies any signs of bleeding. Refused guaiac test and refused rectal exam. REPLACED BY [facility] Medical History Asthma Back pain Blind right eye Depression with anxiety Diabetes Diabetic retinopathy Essential hypertension HTN (hypertension) test positive Type 2 diabetes mellitus with hyperglycemia, with long-term current use of insulin Family History Mother Coronary artery disease Myocardial infarction Stroke Diabetes mellitus Father Myocardial infarction Pertinent family history: As mentioned above Surgical History History of transmetatarsal amputation of foot Social History Household Members: Significant Other Household Members Other:: Sister, [id number], nephew Housing: Apartment Do you presently have visiting nurse or other home services: No Alcohol intake: unknown Patient Tobacco Use Status: Never used Tobacco Use of substances other than those prescribed or required for medical reasons: Unknown Advance Directives: No Advance Directives Information Provided: No Patient : No service: No Gender identity: Female Meds Allergies Allergy/AdvReac Type Severity Reaction Status Date / Time morphine [MORPHINE] Allergy Severe ORAL Verified 03/30/20 15:43 SWELLING Active Medications: Current Medications Acetaminophen (Acetaminophen 325 Mg Tablet) 650 mg PO Q6H PRN PRN Reason: Pain, Mild (Pain Scale 1-3) Dextrose (Dextrose 50 % 25 Gm/50 Ml Vial) 25 gm IVPUSH Q15M PRN; Protocol PRN Reason: per Hypoglycemia Standing Ord. Glucose (Glucose Gel 15 Gm Gel..Gram.) 15 gm PO Q15M PRN; Protocol PRN Reason: per Hypoglycemia Standing Ord. Heparin Sodium (Porcine) (Heparin Sodium,Porcine 5,000 Unit/Ml Vial) 5,000 unit SUBCUT Q8H [facility] Vancomycin HCl 750 mg/ Sodium (Chloride) 265 mls @ 265 mls/hr IV Q12H [facility] Vancomycin HCl 1,000 mg/ (Sodium Chloride) 270 mls @ 270 mls/hr IV Q12H [facility] Cefepime HCl 1 gm/ Sodium (Chloride) 50 mls @ 100 mls/hr IV Q12H [facility] Insulin Human Lispro (Insulin Lispro 100 Unit/Ml 3 Ml Vial) 0 unit SUBCUT QIDACHS [facility]; Protocol Melatonin (Melatonin 3 Mg Tablet) 6 mg PO BEDTIME PRN PRN Reason: Insomnia Pharmacy Consult (Consult Rx Vancomycin Dosing) 1 each MISCELLANE DAILY PRN PRN Reason: Consult order Pharmacy Consult (Consult Rx Perform Med Rec) 1 each MISCELLANE ONCE PRN PRN Reason: Consult order Pharmacy Consult (Consult Rx Vancomycin Dosing) 1 each MISCELLANE DAILY PRN PRN Reason: Consult order Senna (Sennosides 8.6 Mg Tablet) 17.2 mg PO BEDTIME PRN PRN Reason: Constipation Sodium Chloride (0.9 % Sodium Chloride Flush 3 Ml Syringe) 3 ml IVFLUSH [facility] Home Medications Medication Instructions Recorded Confirmed Last Taken Type insulin lispro 100 unit/mL 0 unit SUBCUT TID 02/16/20 03/01/20 Unknown History subcutaneous solution (Humalog U-100 Insulin) amlodipine 2.5 mg tablet 1 tab PO DAILY 12/07/20 12/07/20 Unknown History empagliflozin 10 mg tablet 1 tab PO QAM 12/07/20 12/07/20 Unknown History (Jardiance) insulin aspart U-100 100 unit/mL 50 unit SUBCUT DIRECTED PRN 12/07/20 12/07/20 Unknown History (3 mL) subcutaneous pen (Novolog Flexpen U-100 Insulin aspart) insulin detemir U-100 100 unit/mL 43 unit SUBCUT DAILY 12/07/20 12/07/20 Unknown History (3 mL) subcutaneous pen (Levemir FlexTouch U-100 Insulin) lisinopril 20 mg tablet 1 tab PO DAILY 12/07/20 12/07/20 Unknown History Physical Exam Vital Signs and Narrative: Vital Signs: Last Vital Signs Temp 99.1 F 12/06/20 20:00 Pulse 103 H 12/06/20 20:00 Resp 21 H 12/06/20 20:00 BP 158/91 H 12/06/20 20:00 Pulse Ox 98 12/06/20 20:00 Body Mass Index 32.3 Gen: Appears be in no acute distress HEENT: NCAT, Moist mucosa. Pulmonary: Vesicular breath sounds, fair air entry CVS: Normal S1-S2 Abdomen: BS+, Soft, Nontender Extremities: Warm well perfused; left foot lateral side has a healing wound. Right foot plantar surface has a ulcer below great toe appears healing. Right foot dorsum has ulcer on the distal 3rd; no discharge; appears erythematous; erythema spreading up to the lower 3rd of the leg; no crepitus Neuro: Alert and awake. Results Labs CBC and Chem 7: 12/06/20 18:47 12/06/20 18:47 Labs: Laboratory Results - last 24 hr 12/06/20 12/06/20 12/06/20 18:47 18:47 18:47 MCV 82.4 MCH 25.4 L MCHC 30.8 L RDW 13.7 Plt Count 331 D MPV 10.3 Immature Gran % (Auto) 0.5 H Neut % (Auto) 87.3 H Lymph % (Auto) 6.6 L Dundy % (Auto) 5.1 Eos % (Auto) 0.3 Baso % (Auto) 0.2 Lymph # (Auto) 0.8 L Dundy # (Auto) 0.6 Eos # (Auto) 0.0 Baso # (Auto) 0.0 Abs Immat Gran (auto) 0.06 H Absolute Neuts (auto) 10.0 H Absolute Nucleated RBC 0.000 Nucleated RBC % (auto) 0.0 VBG pH VBG pCO2 VBG pO2 VBG HCO3 VBG O2 Saturation VBG Base Excess Anion Gap 12 Estim Creat Clear Calc 64.0 Estimated GFR 43 Random Glucose 227 H Lactic Acid Calcium 7.3 L Iron 13 L TIBC 134 L % Saturation 10 L Unsat Iron Binding 121 Ferritin 228 H Total Bilirubin 0.4 AST 9 D ALT < 6 Alkaline Phosphatase 131 H Total Protein 6.8 D Albumin 2.1 L Acetone, Qual COVID-19 (CARO) Negative COVID-19 Clin Com See Note 12/06/20 12/06/20 12/06/20 18:47 18:47 18:52 MCV MCH MCHC RDW Plt Count MPV Immature Gran % (Auto) Neut % (Auto) Lymph % (Auto) Dundy % (Auto) Eos % (Auto) Baso % (Auto) Lymph # (Auto) Dundy # (Auto) Eos # (Auto) Baso # (Auto) Abs Immat Gran (auto) Absolute Neuts (auto) Absolute Nucleated RBC Nucleated RBC % (auto) VBG pH 7.41 VBG pCO2 37 VBG pO2 47 VBG HCO3 24 VBG O2 Saturation 74.0 VBG Base Excess 0.0 Anion Gap Estim Creat Clear Calc Estimated GFR Random Glucose Lactic Acid 0.7 Calcium Iron TIBC % Saturation Unsat Iron Binding Ferritin Total Bilirubin AST ALT Alkaline Phosphatase Total Protein Albumin Acetone, Qual Negative COVID-19 (CARO) COVID-19 Clin Com Imaging Radiologist's Impressions: Impressions Foot X-Ray 12/06/20 18:06 IMPRESSION: Significant soft tissue swelling. Chronic bony deformities to the midfoot suggesting underlying neuropathic osteoarthropathy postoperative changes with chronic periosteal changes to the second third and fourth metatarsals but I do not appreciate any additional acute bony destructive lesions. MRI of the foot may be helpful if there is persistent clinical concern. Assessment and Plan (1) DM foot ulcer: Status: Acute (2) Type 2 diabetes mellitus with hyperglycemia, with long-term current use of insulin: Status: Acute (3) Essential hypertension: Status: Acute 30-year-old female with a past medical history of hypertension, diabetes, diabetic retinopathy, legally blind, history of diabetic foot ulcers, history of osteomyelitis status post right and left toe amputations; has chronic wound on the foot-follows with the [facility]; last visit was 2 weeks ago; presented to the hospital today with a chief complaint of right foot dorsum ulcer, pain, swelling, redness. Noted to have diabetic foot ulcer/cellulitis. Admitted for further management. Right foot diabetic ulcer/cellulitis: X-ray shows chronic postsurgical changes. No evidence of gas. Continue IV vancomycin and cefepime. Id consult for further recommendations. General surgery consulted Diabetes: Insulin sliding scale plus Lantus 20 units. Anemia: Patient denies any active signs of bleeding. Patient refused stool guaiac test and rectal exam. Stool guaiac ordered. Currently vitals are stable. IV ppi. Will consult GI of the guaiac test comes back positive. NPO for now. Gentle IV fluids MYNOR: likely prerenal; Hold lisinopril; IV fluids. History of hypertension: Hold lisinopril for now; c/w amlodipine DVT prophylaxis: No SCD boots given cellulitis; no subcu heparin given concerns for anemia. Recommended early ambulation whenever feasible. Fall precautions. Code status: Full code Quality Stroke Does the patient have a stroke diagnosis?: No VTE Prior VTE?: No VTE Risk Level:: Medical - moderate - high VTE Device Contraindication: Treatment Not Indicated VTE Drug Contraindication: N/A - Med Ordered
[2020-12-06 23:53] VITALS: BP 127/77; PULSE 94; RESP 16; TEMP 37.5; O2SAT 98
--- NOTE | 2020-12-06 23:55 | PC.NURSE ---
PATIENT REFUSED TO CHANGE INTO HOSPITAL ATTIRE ,RN TATE IS AWARE
[2020-12-07] MEDS: 0.9 % Sodium Chloride Flush 3 ML SYRINGE IVFLUSH ×2 (00:42→23:59)
[2020-12-07] MEDS: cefEPime HCl 1 GM in 0.9 % Sodium Chloride 50 ML IV (00:53)
--- NOTE | 2020-12-07 02:48 | PC.NURSE ---
Patient has refused to change into a hospital [facility] and has refused all blood work up to this point. Hospitalist aware
[2020-12-07 03:08] VITALS: RESP 15
[2020-12-07] MEDS: HYDROmorphone HCl 0.5 MG/0.5 ML SYRINGE IVPUSH ×2 (03:08→21:33)
[2020-12-07] MEDS: 0.9 % Sodium Chloride 1,000 ML 75 ML IVCONT ×2 (04:14→21:37)
[2020-12-07 06:00] VITALS: BP 127/82; PULSE 93; RESP 14; O2SAT 97
[2020-12-07] MEDS: Pantoprazole Sodium 40 MG/10 ML VIAL IVPUSH (06:31)
--- NOTE | 2020-12-07 07:10 | PHA.PROG ---
Admission Date/Time: December 06, 2020 23:14 Indication: DM foot ulcer/cellulitis Weight in k.718 kg Adjusted body weight in K.86 [place] body weight in K.3 Serum Creatinine - Last 168 Hours 12/06/20 18:47 Creatinine 1.43 H Estimated CrCl and GFR - Last 168 Hours 12/06/20 18:47 Estim Creat Clear Calc 64.0 Estimated GFR 43 Vancomycin Loading Dose: None given - first dose in the ED 1000 mg @ 1807 then second dose 1500 mg 17hr later to create a LD Current Vancomycin Dosing Regimen: 1500 mg Q24H Date and Time for next Vancomycin Level to be drawn: 12/09 Pharmacist Comments on Vancomycin Plan: Start Vanco 1500 mg Q24H on 12/09 1000. The expected AUC is 440 with a trough of 12.4 Trough drawn prior to 4th dose on 12/09 @ 1000 Pharmacy to continue to monitoring renal function daily Cintia Gaytan, Ninfa Vancomycin dosing will take advantage of [employer] as a clinical decision support tool that uses Bayesian modeling to calculate individual patient's pharmacokinetic parameters and forecast the patient's drug concentration time course with the target goal AUC 24 range of 400 - 600 mg/L/hr.
[2020-12-07 07:40] LABS: Glucose, Whole Blood 142 mg/dL (60-115)
--- NOTE | 2020-12-07 08:06 | PHA.MEDREC ---
Pharmacy Consult ? Medication Reconciliation Pharmacy has completed the medication reconciliation. Patient is not a good historian as her answer changed often. Patient reports that the only medication she takes is lisinopril and a medication for depression. Then goes to say she stopped her depression medication because it did not work. She reports she does not take her insulin, then state the last day she use it was the day before yesterday but only takes it once in awhile. She reports she does not take Jardiance but was fill in for a 90 day supply. I called pharmacy to verify that medications were picked up. Jaridance and Levemir picked up 11/18, and Novolog was just filled by her. Amlodipine, lisinoprol and sertraline were filled in september for 90 days supplies. Completed medication based on pharmacy record due to patient being a poor historian. Cintia Gaytan, PharmD
--- NOTE | 2020-12-07 12:06 | P.PNIM_ITS ---
Subjective Subjective Date of Service: 12/07/20 Interval History: Patient admitted overnight for right Foot pain, swelling and redness, complaining of persistent right discomfort denies nausea vomiting, denies fever denies lightheadedness dizziness, no chest pain, no palpitation, adamantly refusing blood transfusion and stool guaiac. Review of Systems General no headache, no dizziness no fever chills. CVS no chest pain, no palpitation. Respiratory no cough, no sob. Gastrointestinal no nausea, no vomiting, no abdominal pain Physical Exam Vital Signs: Vital Signs: Last Vital Signs Temp 99.5 F 12/06/20 23:53 Pulse 93 12/07/20 06:00 Resp 14 12/07/20 06:00 BP 127/82 12/07/20 06:00 Pulse Ox 97 12/07/20 06:00 Body Mass Index 32.3 General awake alert, acute distress. Neck supple no JVD. CVS regular rate rhythm, Respiratory lungs clear to auscultation, no respiratory distress, no wheeze, no rhonchi. Gastrointestinal abdomen soft, nontender, bowel sounds audible, no guarding , no rigidity. Extremities left foot significant swelling, dressing in place missing 1st and 5th toes, two open wound dorsum foot with surrounding mild hyperemia Neuro nonfocal , speech clear. Skin no rash Psych appropriate affect Objective Data Active Medications Acetaminophen (Acetaminophen 325 Mg Tablet) 650 mg PO Q6H PRN PRN Reason: Pain, Mild (Pain Scale 1-3) Amlodipine Besylate (Amlodipine Besylate 2.5 Mg Tablet) 2.5 mg PO DAILY [facility]; Protocol Dextrose (Dextrose 50 % 25 Gm/50 Ml Vial) 25 gm IVPUSH Q15M PRN; Protocol PRN Reason: per Hypoglycemia Standing Ord. Glucose (Glucose Gel 15 Gm Gel..Gram.) 15 gm PO Q15M PRN; Protocol PRN Reason: per Hypoglycemia Standing Ord. Cefepime HCl 1 gm/ Sodium (Chloride) 50 mls @ 100 mls/hr IV Q12H [facility] Last Infusion: 12/07/20 01:23 Dose: 0 mls/hr Documented by: BAKARI Sodium Chloride (Ns) 1,000 mls @ 75 mls/hr IVCONT .[id number] [facility] Last Admin: 12/07/20 04:14 Dose: 75 mls/hr Documented by: BAKARI Vancomycin HCl 1,500 mg/ (Sodium Chloride) 500 mls @ 333.333 mls/hr IV Q24H [facility] Insulin Glargine (Insulin Glargine,Hum.Rec.Anlog 100 Unit/Ml 10 Ml Vial) 20 unit SUBCUT BEDTIME [facility] Insulin Human Lispro (Insulin Lispro 100 Unit/Ml 3 Ml Vial) 0 unit SUBCUT QIDACHS [facility]; Protocol Last Admin: 12/07/20 11:16 Dose: Not Given Documented by: ROBIN Non-Admin Reason: NPO Melatonin (Melatonin 3 Mg Tablet) 6 mg PO BEDTIME PRN PRN Reason: Insomnia Pantoprazole Sodium (Pantoprazole Sodium 40 Mg/10 Ml Vial) 40 mg IVPUSH DAILY@0630 [facility] Last Admin: 12/07/20 06:31 Dose: 40 mg Documented by: BAKARI Pharmacy Consult (Consult Rx Vancomycin Dosing) 1 each MISCELLANE DAILY PRN PRN Reason: Consult order Pharmacy Consult (Consult Rx Perform Med Rec) 1 each MISCELLANE ONCE PRN PRN Reason: Consult order Pharmacy Consult (Consult Rx Vancomycin Dosing) 1 each MISCELLANE DAILY PRN PRN Reason: Consult order Senna (Sennosides 8.6 Mg Tablet) 17.2 mg PO BEDTIME PRN PRN Reason: Constipation Sertraline HCl (Sertraline Hcl 25 Mg Tablet) 25 mg PO DAILY [facility] Sodium Chloride (0.9 % Sodium Chloride Flush 3 Ml Syringe) 3 ml IVFLUSH QSHIFT [facility] Last Admin: 12/07/20 11:15 Dose: Not Given Documented by: ROBIN Non-Admin Reason: IV Running Labs CBC & Chem 7: 12/06/20 18:47 12/06/20 18:47 Labs: Laboratory Results - last 24 hr 12/06/20 12/06/20 12/06/20 18:47 18:47 18:47 MCV 82.4 MCH 25.4 L MCHC 30.8 L RDW 13.7 Plt Count 331 D MPV 10.3 Immature Gran % (Auto) 0.5 H Neut % (Auto) 87.3 H Lymph % (Auto) 6.6 L [place] % (Auto) 5.1 Eos % (Auto) 0.3 Baso % (Auto) 0.2 Lymph # (Auto) 0.8 L [place] # (Auto) 0.6 Eos # (Auto) 0.0 Baso # (Auto) 0.0 Abs Immat Gran (auto) 0.06 H Absolute Neuts (auto) 10.0 H Absolute Nucleated RBC 0.000 Nucleated RBC % (auto) 0.0 VBG pH VBG pCO2 VBG pO2 VBG HCO3 VBG O2 Saturation VBG Base Excess Anion Gap 12 Estim Creat Clear Calc 64.0 Estimated GFR 43 POC Glucose Random Glucose 227 H Lactic Acid Calcium 7.3 L Iron 13 L TIBC 134 L % Saturation 10 L Unsat Iron Binding 121 Ferritin 228 H Total Bilirubin 0.4 AST 9 D ALT < 6 Alkaline Phosphatase 131 H Total Protein 6.8 D Albumin 2.1 L Acetone, Qual COVID-19 ([facility]) Negative [facility] Com See Note 12/06/20 12/06/20 12/06/20 18:47 18:47 18:52 MCV MCH MCHC RDW Plt Count MPV Immature Gran % (Auto) Neut % (Auto) Lymph % (Auto) [place] % (Auto) Eos % (Auto) Baso % (Auto) Lymph # (Auto) [place] # (Auto) Eos # (Auto) Baso # (Auto) Abs Immat Gran (auto) Absolute Neuts (auto) Absolute Nucleated RBC Nucleated RBC % (auto) VBG pH 7.41 VBG pCO2 37 VBG pO2 47 VBG HCO3 24 VBG O2 Saturation 74.0 VBG Base Excess 0.0 Anion Gap Estim Creat Clear Calc Estimated GFR POC Glucose Random Glucose Lactic Acid 0.7 Calcium Iron TIBC % Saturation Unsat Iron Binding Ferritin Total Bilirubin AST ALT Alkaline Phosphatase Total Protein Albumin Acetone, Qual Negative COVID-19 (CARO) COVID-[facility] Com 12/07/20 07:37 MCV MCH MCHC RDW Plt Count MPV Immature Gran % (Auto) Neut % (Auto) Lymph % (Auto) [place] % (Auto) Eos % (Auto) Baso % (Auto) Lymph # (Auto) [place] # (Auto) Eos # (Auto) Baso # (Auto) Abs Immat Gran (auto) Absolute Neuts (auto) Absolute Nucleated RBC Nucleated RBC % (auto) VBG pH VBG pCO2 VBG pO2 VBG HCO3 VBG O2 Saturation VBG Base Excess Anion Gap Estim Creat Clear Calc Estimated GFR POC Glucose 142 H Random Glucose Lactic Acid Calcium Iron TIBC % Saturation Unsat Iron Binding Ferritin Total Bilirubin AST ALT Alkaline Phosphatase Total Protein Albumin Acetone, Qual COVID-19 (CARO) COVID-19 Clin Com Assessment and Plan (1) Cellulitis and abscess of foot: Status: Acute (2) Severe anemia: Status: Acute (3) DM foot ulcer: Status: Acute (4) Essential hypertension: Status: Acute (5) Type 2 diabetes mellitus with hyperglycemia, with long-term current use of insulin: Status: Acute Assessment and Plan: 30-year-old female with a past medical history of hypertension, diabetes, diabetic retinopathy, legally blind, history of diabetic foot ulcers, history of osteomyelitis status post right and left toe amputations; has chronic wound on the foot-[facility]; last visit was 2 weeks ago; presented to the hospital today with a chief complaint of right foot dorsum ulcer, pain, swelling, redness.? Noted to have diabetic foot ulcer/cellulitis.? Admitted for further management. 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 Continue IV vancomycin and cefepime day 2 Await ID and surgical input, question need MRI foot Follow CBC, blood cultures Diabetes mellitus on insulin Blood sugars elevated, On Lantus and Jardiance at home, continue diabetic diet, Insulin sliding scale plus Lantus 20 units. Hold Jardiance Acute on chronic normocytic Anemia:? Likely anemia of chronic disease Patient denies GI bleed, no hematemesis, no melena, denies heavy periods, patient refusing stool guaiac and blood transfusion Iron studies not consistent with iron deficiency, ferritin 228, add B12, folate, LDH, haptoglobin and retic Baseline hematocrit 26, down to 20 today Will obtain Hematology consultation Follow H&H MYNOR: likely prerenal; Hold lisinopril; continue IV fluids follow BMP History of hypertension: Continue Norvasc, hold lisinopril as above, follow blood pressure DVT prophylaxis:? No SCD boots given cellulitis; no subcu heparin given concerns for anemia. Recommended early ambulation whenever feasible.? Fall precautions. Code status:? Full code Quality Stroke Does the patient have a stroke diagnosis?: No VTE Prior VTE?: No VTE Risk Level:: Medical - moderate - high VTE Device Contraindication: Treatment Not Indicated VTE Drug Contraindication: N/A - Med Ordered
--- NOTE | 2020-12-07 12:55 | P.CONGS_ITS ---
History of Present Illness Consult details Consult date: 12/07/20 Narrative: 30-year-old female patient with history of diabetes mellitus, poorly controlled, legally blind and a previous history of a left transmetatarsal amputation performed by Dr. Arias now presenting with an abscess of the right foot. She had a previous amputation of the 4th and 5th toes and was noted to have swelling of the right foot by her sister. Surgical consultation is requested for the right foot abscess. Foot is currently draining a large amount of purulence discharge. The patient denies significant discomfort due to her neuropathy. She is being admitted to the hospitalist service for IV antibiotics. A foot x-ray reveals ?Significant soft tissue swelling. Chronic bony deformities to the midfoot suggesting underlying neuropathic osteoarthropathy postoperative changes with chronic periosteal changes to the second third and fourth metatarsals but I do not appreciate any additional acute bony destructive lesions. MRI of the foot may be helpful if there is persistent clinical concern.? Review of Systems Review of Systems: Yes all other systems are reviewed and are negative Constitutional: Constitutional: Denies chills and Denies fever(s) Eyes: Comments: Legally blind ENT: Denies sinus pain and Denies sore throat Cardiovascular: Cardiovascular: Denies chest pain, Denies irregular heart rh ythm and Denies palpitations Respiratory: Respiratory: Denies chest congestion, Denies cough and Denies hemoptysis Gastrointestinal: Gastrointestinal: Reports no additional gastrointestinal co mplaints Musculoskeletal: Musculoskeletal: Reports as per HPI Integumentary/Breasts: Skin/Breast: Reports as per HPI Neurologic: Reports as per HPI Endocrine: Endocrine: Denies palpitations PMFSH Past Medical History Medical History Asthma Back pain Blind right eye Depression with anxiety Diabetes Diabetic retinopathy Essential hypertension HTN (hypertension) test positive Type 2 diabetes mellitus with hyperglycemia, with long-term current use of ins ulin Family History Family History Mother Coronary artery disease Myocardial infarction Stroke Diabetes mellitus Father Myocardial infarction Surgical History Surgical History History of transmetatarsal amputation of foot Social History Social History Household Members: Significant Other Household Members Other:: Sister, [id number], nephew Housing: Apartment Do you presently have visiting nurse or other home services: No Alcohol intake: unknown Patient Tobacco Use Status: Never used Tobacco Use of substances other than those prescribed or required for medical reasons: Unknown Advance Directives: No Advance Directives Information Provided: No Patient : No service: No Gender identity: Female Meds Allergies Allergy/AdvReac Type Severity Reaction Status Date / Time morphine [MORPHINE] Allergy Severe ORAL Verified 03/30/20 15:43 SWELLING Active Medications: Current Medications Acetaminophen (Acetaminophen 325 Mg Tablet) 650 mg PO Q6H PRN PRN Reason: Pain, Mild (Pain Scale 1-3) Amlodipine Besylate (Amlodipine Besylate 2.5 Mg Tablet) 2.5 mg PO DAILY [facility]; Protocol Dextrose (Dextrose 50 % 25 Gm/50 Ml Vial) 25 gm IVPUSH Q15M PRN; Protocol PRN Reason: per Hypoglycemia Standing Ord. Glucose (Glucose Gel 15 Gm Gel..Gram.) 15 gm PO Q15M PRN; Protocol PRN Reason: per Hypoglycemia Standing Ord. Cefepime HCl 1 gm/ Sodium (Chloride) 50 mls @ 100 mls/hr IV Q12H [facility] Last Infusion: 12/07/20 01:23 Dose: Infused Documented by: Sodium Chloride (Ns) 1,000 mls @ 75 mls/hr IVCONT .[id number] [facility] Last Admin: 12/07/20 04:14 Dose: 75 mls/hr Documented by: Vancomycin HCl 1,500 mg/ (Sodium Chloride) 500 mls @ 333.333 mls/hr IV Q24H [facility] Insulin Glargine (Insulin Glargine,Hum.Rec.Anlog 100 Unit/Ml 10 Ml Vial) 20 unit SUBCUT BEDTIME [facility] Insulin Human Lispro (Insulin Lispro 100 Unit/Ml 3 Ml Vial) 0 unit SUBCUT QIDACHS [facility]; Protocol Last Admin: 12/07/20 11:16 Dose: Not Given Documented by: Melatonin (Melatonin 3 Mg Tablet) 6 mg PO BEDTIME PRN PRN Reason: Insomnia Pantoprazole Sodium (Pantoprazole Sodium 40 Mg/10 Ml Vial) 40 mg IVPUSH DAILY@0630 [facility] Last Admin: 12/07/20 06:31 Dose: 40 mg Documented by: Pharmacy Consult (Consult Rx Vancomycin Dosing) 1 each MISCELLANE DAILY PRN PRN Reason: Consult order Pharmacy Consult (Consult Rx Perform Med Rec) 1 each MISCELLANE ONCE PRN PRN Reason: Consult order Pharmacy Consult (Consult Rx Vancomycin Dosing) 1 each MISCELLANE DAILY PRN PRN Reason: Consult order Senna (Sennosides 8.6 Mg Tablet) 17.2 mg PO BEDTIME PRN PRN Reason: Constipation Sertraline HCl (Sertraline Hcl 25 Mg Tablet) 25 mg PO DAILY [facility] Sodium Chloride (0.9 % Sodium Chloride Flush 3 Ml Syringe) 3 ml IVFLUSH QSHIFT [facility] Last Admin: 12/07/20 11:15 Dose: Not Given Documented by: Home Medications Medication Instructions Recorded Confirmed Last Taken Type amlodipine 2.5 mg tablet 1 tab PO DAILY 12/07/20 12/07/20 Unknown History empagliflozin 10 mg tablet 1 tab PO QAM 12/07/20 12/07/20 Unknown History (Jardiance) insulin aspart U-100 100 unit/mL See Protocol SUBCUT DIRECTED PRN 12/07/20 12/07/20 Unknown History (3 mL) subcutaneous pen (Novolog Flexpen U-100 Insulin aspart) insulin detemir U-100 100 unit/mL 43 unit SUBCUT DAILY 12/07/20 12/07/20 Unknown History (3 mL) subcutaneous pen (Levemir FlexTouch U-100 Insulin) lisinopril 20 mg tablet 1 tab PO DAILY 12/07/20 12/07/20 Unknown History sertraline 25 mg tablet 1 tab PO DAILY 12/07/20 12/07/20 Unknown History Physical Exam Vital Signs: Vital Signs: Last Vital Signs Temp 99.5 F 12/06/20 23:53 Pulse 93 12/07/20 06:00 Resp 14 12/07/20 06:00 BP 127/82 12/07/20 06:00 Pulse Ox 97 12/07/20 06:00 Body Mass Index 32.3 Const: General: comfortable and alert Nutritional Appearance: well nourished Orientation/consciousness: patient oriented x3 Limitations: physical limitations HENMT: Head: Yes normocephalic and Yes atraumatic Ears: hearing grossly normal bilaterally Resp: Effort & Inspection: normal respiratory effort, no cough and no respiratory distress GI: Inspection: Yes normal to inspection Skin: Other: See extremities below General skin exam: crusts and erythema Neuro: General: patient oriented x3 Extrem: Other: Status post left transmetatarsal amputation, status post right 4th and 5th toe amputation. Open wound on the dorsum of the right foot with 2 openings noted both draining purulence discharge. Palpation on the forefoot does produce a small amount of discharge. No undrained collection is identified. Chronic scarring and edema is noted in the foot and ankle. No tenderness to deep palpation. Results Labs Result diagrams: 12/06/20 18:47 12/06/20 18:47 Labs: Abnormal lab results 12/06/20 12/06/20 12/07/20 Range/Units 18:47 18:47 07:37 WBC 11.5 H (4.8-10.8) X10*3/uL RBC 2.44 L (4.20-5.50) X10*6/uL Hgb 6.2 L* (12.0-16.0) g/dl Hct 20.1 L* (37-47) % MCH 25.4 L (27.0-33.0) pg MCHC 30.8 L (31.0-35.0) g/dl Immature Gran % (Auto) 0.5 H (0.0-0.4) % Neut % (Auto) 87.3 H (45-73) % Lymph % (Auto) 6.6 L (20-40) % Lymph # (Auto) 0.8 L (1.2-4.9) X10*3/uL Abs Immat Gran (auto) 0.06 H (0.00-0.03) X10*3/uL Absolute Neuts (auto) 10.0 H (2.0-8.3) X10*3/uL Creatinine 1.43 H (0.5-1.4) mg/dL POC Glucose 142 H (60-115) mg/dL Random Glucose 227 H (60-115) mg/dL Calcium 7.3 L (8.4-10.2) mg/dL Iron 13 L (30-160) mcg/dL TIBC 134 L (228-428) mcg/dL % Saturation 10 L (15-50) % Ferritin 228 H (10-122) ng/mL Alkaline Phosphatase 131 H (39-117) U/L Albumin 2.1 L (3.5-5.0) g/dL Short CBC 12/06/20 Range/Units 18:47 WBC 11.5 H (4.8-10.8) X10*3/uL Hgb 6.2 L* (12.0-16.0) g/dl Hct 20.1 L* (37-47) % Plt Count 331 D (160-400) X10*3/uL BMP 12/06/20 18:47 Sodium 136 Potassium 3.6 Chloride 103 Carbon Dioxide 25 BUN 12 Creatinine 1.43 H Calcium 7.3 L Liver Function 12/06/20 Range/Units 18:47 Total Bilirubin 0.4 (0.0-1.0) mg/dL AST 9 D (5-31) U/L ALT < 6 (0-31) U/L Alkaline Phosphatase 131 H (39-117) U/L Albumin 2.1 L (3.5-5.0) g/dL All other labs normal. Assessment and Plan (1) Cellulitis and abscess of foot: Status: Acute 30-year-old female patient with diabetes mellitus poorly controlled presenting with an abscess of the right foot which is now open and draining. No evidence of an undrained abscess found by physical examination and no necrotic tissue identified in the overlying skin. MRI of the foot would be helpful to identify the underlying source of this abscess, presumably osteomyelitis at the metatarsals. Agree with parental antibiotics and local wound care. I will follow along during her admission. Procedures Date of Service Date of Service: 12/07/20
--- NOTE | 2020-12-07 13:50 | MHC.CM.PN ---
Addendum entered by Arabella Tom 12/07/20 14:21: Patient received Moderna vaccines on 06/18 and 07/16. Original Note: Met with patient in regards to discharge planning. Patient lives with her fiance, ambulates indepednently and had no services prior to coming to the hospital. Patient is blind in her right eye and has minimal vision in her left. No services anticipated to be needed because patient is not homebound. PCP verified. HCP verified to be on file. IMM explained and left at beside. Continue to monitor for d/c needs.
--- NOTE | 2020-12-07 16:08 | PM.HEMONCCN ---
Subjective - Subjective Chief complaint: Consult for: Anemia. Patient: new to practice Consult date: 12/07/20 Requesting Physician: FITO Primary Care Provider: Abdon Beard MD Medical Summary: DIAGNOSIS: SEVERE ANEMIA. HPI - Consult Narrative Reason for consult: Consult for: Anemia. Narrative: Shereen Taylor is a pleasant 30 year old lady, admitted overnight for right Foot pain, swelling and redness, complaining of persistent right discomfort. She denies nausea vomiting, denies fever denies lightheadedness dizziness, no chest pain, no palpitation. CBC: WBC 11.5, HGB 6.2, HCT 20.1, PLT 331. Iron studies: /. She is adamantly refusing blood transfusion and stool guaiac. Review of Systems: She does feel fatigued. General: no headache, no dizziness no fever chills. CVS no chest pain, no palpitation. Respiratory no cough, no sob. Gastrointestinal no nausea, no vomiting, no abdominal pain. Denies diarrhea. No urinary complaints. She has right foot pain. No other arthralgia myalgia. Denies focal weakness. Seems to be depressed. No skin rashes nor pruritus. Review of Systems - Constitutional Reports system reviewed and no additional complaints, except as documented, Reports body ache(s), Reports fatigue, Reports lack of energy, Reports malaise, Reports weakness, Reports weight loss, Denies fever(s) - Eyes Reports system reviewed and no additional complaints, except as documented - ENT Reports system reviewed and no additional complaints, except as documented - Cardiovascular Reports system reviewed and no additional complaints, except as documented - Respiratory Reports no additional respiratory complaints - Gastrointestinal Reports system reviewed and no additional complaints, except as documented - Genitourinary Reports no additional female genitourinary complaints - Musculoskeletal Reports system reviewed and no additional complaints, except as documented - Integumentary/Breasts Skin/Breast: Reports no additional skin complaints - Neurologic Reports as per HPI - Psychiatric Reports system reviewed and no additional complaints, except as documented - Endocrine Reports no additional endocrine complaints - Hematologic/Lymphatic Reports system reviewed and no additional complaints, except as documented - Allergic/Immunologic Reports system reviewed and no additional complaints, except as documented Oncology Screenings - ECOG Performance Status ECOG Performance Status: 1 [facility] Medical History: Medical History (Last Reviewed 12/08/20 @ 12:28 by Yamilet Diallo MD) Asthma Back pain Blind right eye Depression with anxiety Diabetes Diabetic retinopathy Essential hypertension HTN (hypertension) test positive Type 2 diabetes mellitus with hyperglycemia, with long-term current use of insulin Functional capacity: independent ambulation Patient : No Family History: Family History (Last Reviewed 12/08/20 @ 12:28 by Yamilet Diallo MD) Mother Coronary artery disease Myocardial infarction Stroke Diabetes mellitus Father Myocardial infarction Surgical History: Surgical History (Last Reviewed 12/08/20 @ 12:28 by Yamilet Diallo MD) History of transmetatarsal amputation of foot Social History: Social History (Last Reviewed 12/07/20 @ 13:01 by Angel Collado MD) Living Situation History: Household Members: Spouse Household Members Other:: Sister, [id number], nephew Housing: Apartment Do you presently have visiting nurse or other home services: Yes Do you presently have visiting nurse or other home services comment: [employer] services Alcohol History: Alcohol intake: unknown Alcohol History Details: Alcohol intake frequency: does not drink Tobacco History: Patient Tobacco Use Status: Never used Tobacco e-Cigarette/Vaping Use: Never Used Second Hand Smoke Exposure: No Occupation Assessmet: service: No Current occupational status: disabled Sex/Gender Assessment: Gender identity: Female Home Medications and Allergies Current Medications: Current Medications Acetaminophen (Acetaminophen 325 Mg Tablet) 650 mg PO Q6H PRN PRN Reason: Pain, Mild (Pain Scale 1-3) Amlodipine Besylate (Amlodipine Besylate 2.5 Mg Tablet) 2.5 mg PO DAILY [facility]; Protocol Dextrose (Dextrose 50 % 25 Gm/50 Ml Vial) 25 gm IVPUSH Q15M PRN; Protocol PRN Reason: per Hypoglycemia Standing Ord. Glucose (Glucose Gel 15 Gm Gel..Gram.) 15 gm PO Q15M PRN; Protocol PRN Reason: per Hypoglycemia Standing Ord. Cefepime HCl 1 gm/ Sodium (Chloride) 50 mls @ 100 mls/hr IV Q12H [facility] Last Infusion: 12/07/20 01:23 Dose: Infused Documented by: Sodium Chloride (Ns) 1,000 mls @ 75 mls/hr IVCONT .[id number] [facility] Last Admin: 12/07/20 04:14 Dose: 75 mls/hr Documented by: Vancomycin HCl 1,500 mg/ (Sodium Chloride) 500 mls @ 333.333 mls/hr IV Q24H [facility] Insulin Glargine (Insulin Glargine,Hum.Rec.Anlog 100 Unit/Ml 10 Ml Vial) 20 unit SUBCUT BEDTIME [facility] Insulin Human Lispro (Insulin Lispro 100 Unit/Ml 3 Ml Vial) 0 unit SUBCUT QIDACHS [facility]; Protocol Last Admin: 12/07/20 11:16 Dose: Not Given Documented by: Melatonin (Melatonin 3 Mg Tablet) 6 mg PO BEDTIME PRN PRN Reason: Insomnia Pantoprazole Sodium (Pantoprazole Sodium 40 Mg/10 Ml Vial) 40 mg IVPUSH DAILY@0630 [facility] Last Admin: 12/07/20 06:31 Dose: 40 mg Documented by: Pharmacy Consult (Consult Rx Vancomycin Dosing) 1 each MISCELLANE DAILY PRN PRN Reason: Consult order Pharmacy Consult (Consult Rx Perform Med Rec) 1 each MISCELLANE ONCE PRN PRN Reason: Consult order Pharmacy Consult (Consult Rx Vancomycin Dosing) 1 each MISCELLANE DAILY PRN PRN Reason: Consult order Senna (Sennosides 8.6 Mg Tablet) 17.2 mg PO BEDTIME PRN PRN Reason: Constipation Sertraline HCl (Sertraline Hcl 25 Mg Tablet) 25 mg PO DAILY [facility] Sodium Chloride (0.9 % Sodium Chloride Flush 3 Ml Syringe) 3 ml IVFLUSH QSHIFT [facility] Last Admin: 12/07/20 11:15 Dose: Not Given Documented by: Home Medications Medication Instructions Recorded Confirmed Type amlodipine 2.5 mg tablet 1 tab PO DAILY 12/07/20 12/07/20 History empagliflozin 10 mg tablet 1 tab PO QAM 12/07/20 12/07/20 History (Jardiance) insulin aspart U-100 100 unit/mL See Protocol SUBCUT DIRECTED PRN 12/07/20 12/07/20 History (3 mL) subcutaneous pen (Novolog Flexpen U-100 Insulin aspart) lisinopril 20 mg tablet 1 tab PO DAILY 12/07/20 12/07/20 History sertraline 25 mg tablet 1 tab PO DAILY 12/07/20 12/07/20 History Allergies Allergy/AdvReac Type Severity Reaction Status Date / Time morphine [MORPHINE] Allergy Severe ORAL Verified 03/30/20 15:43 SWELLING Physical Exam Vital signs: Vital Signs Temp 99.5 F 12/06/20 23:53 Pulse 93 12/07/20 06:00 Resp 14 12/07/20 06:00 BP 127/82 12/07/20 06:00 Pulse Ox 97 12/07/20 06:00 Intake & Output 12/06/20 12/07/20 12/07/20 18:59 06:59 18:59 Intake Total 1370 / 1370 Balance 1370 / 1370 Intake: Intake, IV Amount 1370 / 1370 Piperacillin Sodium/Tazobactam 50 / 50 3.375 gm In 0.9 % Sodium Chloride 50 ml @ 100 mls/hr IV ONCE ONE Rx#:[id number] cefEPime HCl 1 gm In 0.9 % 50 / 50 Sodium Chloride 50 ml @ 100 mls /hr IV Q12H [facility] Rx#:[id number] vancomycin HCL 1,000 mg In 0.9 270 / 270 % Sodium Chloride 250 ml @ 270 mls/hr IV ONCE ONE Rx#: [id number] 0.9 % Sodium Chloride 1,000 ml 1000 / 1000 @ 999 mls/hr IVCONT .Q1H1M [facility] Rx#:[id number] Other: Weight 90.718 kg Weight 90.718 kg - Constitutional Present: mild distress - Routine HEENT Exam Head: Present: normal inspection ENT: Present: mucous membranes moist - Routine Neck Exam Present: supple - Routine Respiratory Exam Present: CTAB - Routine Cardiovascular Exam Cardiovascular: Present: RRR, S1, S2 - Routine Abdominal Exam Present: distended, firm, nontender - Routine Extremities Exam Present: pedal edema, tenderness - Routine Skin Exam Present: intact - Routine Neurological Exam Present: alert, oriented X3 Hem/Onc Consult Result - Labs CBC & Chem 7: 12/09/20 10:33 12/11/20 04:25 Labs: Short CBC 12/06/20 Range/Units 18:47 WBC 11.5 H (4.8-10.8) X10*3/uL Hgb 6.2 L* (12.0-16.0) g/dl Hct 20.1 L* (37-47) % Plt Count 331 D (160-400) X10*3/uL BMP 12/06/20 18:47 Sodium 136 Potassium 3.6 Chloride 103 Carbon Dioxide 25 BUN 12 Creatinine 1.43 H Calcium 7.3 L Liver Function 12/06/20 Range/Units 18:47 Total Bilirubin 0.4 (0.0-1.0) mg/dL AST 9 D (5-31) U/L ALT < 6 (0-31) U/L Alkaline Phosphatase 131 H (39-117) U/L Albumin 2.1 L (3.5-5.0) g/dL Assessment and Plan Patient Active problem list reviewed?: Yes (1) Severe anemia Status: Acute Assessment and plan: This is a 30-year-old lady who presented with cellulitis of her right leg. She was noted to have severe normochromic normocytic anemia. DIFFERENTIAL DIAGNOSIS: 1. IRON DEFICIENCY ANEMIA: Most likely she has underlying iron deficiency. Her iron studies are: 134/ 2. ANEMIA OF CHRONIC DISEASE: Likely since her iron studies are consistent with chronic disease picture. 3. HEMOLYTIC ANEMIA: Can be microcytic or macrocytic. 4. B12/FOLATE DEFICIENCY: Is in the differential. 5. UNDERLYING MYELO INFILTRATIVE DISORDER: MDS versus lymphoma versus multiple myeloma. Not likely in a young patient with iron deficiency. PLAN: I will proceed with further evaluation. Check hemolytic screen: Retic: 2.2, hapto: pending, LDH:nl. Check SIEP, LDH:154. She may need a GI evaluation. Can arrange for IV iron, Dextran. Her goal hemoglobin is 14. Thank you for the consult, Will follow, Patient declined to have labs done, initially. Discharge summary: She was also noted to have severe anemia of chronic disease with iron deficiency. She refused blood transfusion. She was given IV iron and dischraged on PO iron. She had mild MYNOR on admission that resolved after IV fluids and holding lisinopril; lisinopril was resumed. The importance of good glycemic control was counseled. VNA services will be arranged and she will need weekly labs while on ertapenem 1g IV daily: CBCd, CMP, ESR, CRP. Wound care will be arranged daily as per orders below. CC: - Time Spent With Patient Time Spent with Patient (in minutes): 25
[2020-12-07 17:38] VITALS: BP 158/90; PULSE 100; RESP 16; O2SAT 100
[2020-12-07 17:47] LABS: Glucose, Whole Blood 140 mg/dL (60-115)
[2020-12-07] MEDS: Acetaminophen 325 MG TABLET 650 MG PO (18:10)
--- NOTE | 2020-12-07 18:31 | PC.NURSE ---
PT SLEEPING THIS AM AND REFUSED ORAL MEDICATIONS, PT HAS BEEN ASSESSED AND MEDICATED PRN. HAD BEEN NPO INSULIN HELD, AND POC HAVE BEEN IN THE 140'S SO HAS NOT NEEDED COVERAGE. PT AMB TO BR AD DIANNE, OR USING BED SIDE COMMODE. PT ATE AND TOLERATED SNACKS AND DINNER. PT L AC IV WAS INFILTRATED THIS AM, IV RESTARTED IN RIGHT HAND. 11 AM VANCO WAS NOT GIVEN, DUE TO MISSING THE ORDER PHARMACY CALLED AND MED WILL BE GIVEN NOW. REPORT GIVEN TO ROSS BETH PT WILL BE GOING TO ROOM 259
[2020-12-07] MEDS: vancomycin HCL 1,500 MG in 0.9 % Sodium Chloride 500 ML 333.33 MG IV (18:49)
--- NOTE | 2020-12-07 18:50 | HE.PHANOTE ---
Vancomycin Dosing Addendum RN called to change time of vancomycin from 12/07/20 @1100 to 12/07/20 @1900. Med administered late. Vancomycin start time and trough adjusted.
[2020-12-07 19:20] VITALS: BP 180/100; PULSE 102; RESP 20; TEMP 36.5; O2SAT 100
[2020-12-07 19:59] LABS: MANUAL DIFF FLAG NO
[2020-12-07 20:03] LABS: Basophils Percent Auto 0.5 % (0-2); Eosinophils Absolute Auto 0.2 X10*3/uL (0.0-0.4); Eosinophils Percent Auto 2.9 % (0-4); Imm Gran Abs Auto 0.02 X10*3/uL (0.00-0.03); Imm Gran Pct Auto 0.4 % (0.0-0.4); Lymphocytes Absolute Auto 0.7 X10*3/uL (1.2-4.9); Lymphocytes Percent Auto 12.6 % (20-40); Mean Corpuscular Hemoglobin 25.6 pg (27.0-33.0); Mean Corpuscular Volume 82.7 fL (80-98); Monocytes Absolute Auto 0.4 X10*3/uL (0.1-1.2); Monocytes Percent Auto 7.9 % (2-11); Neutrophils Absolute Auto 4.1 X10*3/uL (2.0-8.3); Neutrophils Percent Auto 75.7 % (45-73); Platelet Count 306 X10*3/uL (160-400); Red Blood Count 2.54 X10*6/uL (4.20-5.50); Red Cell Distribution Width 13.7 % (11.0-16.0); Retic HGB Equivalent 25.5 pg (30.0-35.0); Reticulocyte Percent 2.2 % (0.5-1.8); Reticulocytes Absolute 0.055 X10*6/uL (0.026-0.095); White Blood Count 5.5 X10*3/uL (4.8-10.8)
[2020-12-07 20:07] LABS: Hemoglobin 6.5 g/dl (12.0-16.0)
[2020-12-07 20:17] LABS: Glucose, Whole Blood 161 mg/dL (60-115)
[2020-12-07 21:34] VITALS: BP 147/89; PULSE 100
[2020-12-07] MEDS: amLODIPine Besylate 2.5 MG TABLET PO (21:34)
[2020-12-07] MEDS: Insulin Lispro 100 UNIT/ML 3 ML VIAL SUBCUT (21:34)
[2020-12-07] MEDS: Insulin Glargine,Hum.rec.anlog 100 UNIT/ML 10 ML VIAL 20 UNIT SUBCUT (21:36)
[2020-12-08] VITALS (8 sets, daily range): BP systolic 125–158; BP diastolic 77–90; PULSE 61–100; RESP 13–22; TEMP 36.3–36.8; O2SAT 90–100
--- NOTE | 2020-12-08 00:28 | PC.NURSE ---
Patient arrived to the unit via stretcher , alert and oriented c/o pain 9/10 from Left foot radiating up leg. Bp slighlty elevated. Critical H&H called in and taken by ICU PA. H&H 6.07/16 Notified MD major in regards to pain, bp and H&H patient had previous low H&H and had sister on the phone and was asking questions in regards to other options/ or alternatives and possibly family being able to donate blood. This RN spoke MD and request he come down and talk with her. Once arrived MD stated he spoke with her about transfusion and told this nurse that the patient still refused. Patient asked this nurse about possibility of her family donating blood becasue she doesn't want blood from strangers. This RN will informed her these options will have to be discussed with the doctor and that this nurse will request a doctor come speak with patient in the morning. Dialudid 0.5mg given as ordered, diabetic foot ulcers to bilateral feet; patient reported pain improving 6/10 prior to this nurse end of shift. Patient stable with no further complaints at this time.
[2020-12-08] MEDS: Pantoprazole Sodium 40 MG/10 ML VIAL IVPUSH (05:47)
--- NOTE | 2020-12-08 06:18 | PC.NURSE ---
CARE ASSUMED 23;15...initially dozing...respirations easy...awakened for hs assessment...resistant to care...vss...iv fluids 75 cc/hr ..denies urge to void...dressings to both feet dry/intact..nsr..no ectopy...hospitalist updated via [employer] concerning no followup lab work...md related day hospitalist to decide4/discuss further blood-work d/t patient's previous refusals for lab draws..patient currently dozing..no distress
[2020-12-08 07:13] LABS: Glucose, Whole Blood 90 mg/dL (60-115)
[2020-12-08] MEDS: Sertraline HCL 25 MG TABLET PO (07:35)
[2020-12-08] MEDS: oxyCODONE HCl Immed Release 5 MG TABLET PO ×2 (07:35→20:00)
[2020-12-08] MEDS: amLODIPine Besylate 2.5 MG TABLET PO (07:36)
[2020-12-08 09:25] LABS: Folate 9.1 ng/mL (> or = 4.0); Vitamin B12 697 pg/mL (200-900)
[2020-12-08 09:46] LABS: Estimated Average Glucose 260 mg/dL; Hemoglobin A1c % 10.7 %
[2020-12-08] MEDS: 0.9 % Sodium Chloride 1,000 ML 75 ML IVCONT (10:09)
[2020-12-08] MEDS: ondansetron HCL 4 MG/2 ML VIAL IVPUSH (11:03)
[2020-12-08] MEDS: diphenhydrAMINE HCL 50 MG/ML VIAL 25 MG IVPUSH (11:04)
[2020-12-08 11:11] LABS: Glucose, Whole Blood 105 mg/dL (60-115)
--- NOTE | 2020-12-08 12:26 | P.CNID_ITS ---
History of Present Illness Data of Consult Service Date: 12/08/20 Requesting physician: Scarlet Arora Primary Care Provider: Abdon Beard MD [facility] Reason for consult: diabetic foot infection Patient presents to ER with redness up left leg extending from foot and ulcer Redness is new and some exudate as well. She has blood glucose over 300 and weakness. She has had Pseudomonas and staph foot before. She has DM and bilateral TMA Review of Systems Review of Systems: Yes all other systems are reviewed and are negative PMFSH Past Medical History Medical History Asthma Back pain Blind right eye Depression with anxiety Diabetes Diabetic retinopathy Essential hypertension HTN (hypertension) test positive Type 2 diabetes mellitus with hyperglycemia, with long-term current use of insulin Functional capacity: independent ambulation Family History Family History Mother Coronary artery disease Myocardial infarction Stroke Diabetes mellitus Father Myocardial infarction Family history: reviewed and not pertinent Surgical History Surgical History History of transmetatarsal amputation of foot Social History Social History Household Members: Spouse Household Members Other:: Sister, [id number], nephew Housing: Apartment Do you presently have visiting nurse or other home services: Yes ([employer] services) Alcohol intake: unknown Patient Tobacco Use Status: Never used Tobacco e-Cigarette/Vaping Use: Never Used Second Hand Smoke Exposure: No service: No Current occupational status: disabled Gender identity: Female Meds Allergies Allergy/AdvReac Type Severity Reaction Status Date / Time morphine [MORPHINE] Allergy Severe ORAL Verified 03/30/20 15:43 SWELLING Active Medications: Current Medications Acetaminophen (Acetaminophen 325 Mg Tablet) 650 mg PO Q6H PRN PRN Reason: Pain, Mild (Pain Scale 1-3) Last Admin: 12/07/20 18:10 Dose: 650 mg Documented by: Amlodipine Besylate (Amlodipine Besylate 2.5 Mg Tablet) 2.5 mg PO DAILY [facility]; Protocol Last Admin: 12/08/20 07:36 Dose: 2.5 mg Documented by: Dextrose (Dextrose 50 % 25 Gm/50 Ml Vial) 25 gm IVPUSH Q15M PRN; Protocol PRN Reason: per Hypoglycemia Standing Ord. Diphenhydramine HCl (Diphenhydramine Hcl 50 Mg/Ml Vial) 25 mg IVPUSH Q6H PRN PRN Reason: Allergic Reaction Last Admin: 12/08/20 11:04 Dose: 25 mg Documented by: Glucose (Glucose Gel 15 Gm Gel..Gram.) 15 gm PO Q15M PRN; Protocol PRN Reason: per Hypoglycemia Standing Ord. Cefepime HCl 1 gm/ Sodium (Chloride) 50 mls @ 100 mls/hr IV Q12H [facility] Last Infusion: 12/08/20 00:36 Dose: Infused Documented by: Sodium Chloride (Ns) 1,000 mls @ 100 mls/hr IVCONT .Q10H [facility] Last Admin: 12/08/20 10:09 Dose: 75 mls/hr Documented by: Vancomycin HCl 1,500 mg/ (Sodium Chloride) 500 mls @ 333.333 mls/hr IV Q24H [facility] Last Infusion: 12/07/20 23:25 Dose: Infused Documented by: Insulin Glargine (Insulin Glargine,Hum.Rec.Anlog 100 Unit/Ml 10 Ml Vial) 20 unit SUBCUT BEDTIME [facility] Last Admin: 12/07/20 21:36 Dose: 20 unit Documented by: Insulin Human Lispro (Insulin Lispro 100 Unit/Ml 3 Ml Vial) 0 unit SUBCUT QIDACHS [facility]; Protocol Last Admin: 12/08/20 12:00 Dose: Not Given Documented by: Melatonin (Melatonin 3 Mg Tablet) 6 mg PO BEDTIME PRN PRN Reason: Insomnia Ondansetron HCl (Ondansetron Hcl 4 Mg/2 Ml Vial) 4 mg IVPUSH Q8H PRN PRN Reason: Nausea Last Admin: 12/08/20 11:03 Dose: 4 mg Documented by: Oxycodone HCl (Oxycodone Hcl Immed Release 5 Mg Tablet) 5 mg PO Q6H PRN PRN Reason: Pain, Severe (Pain Scale 7-10) Last Admin: 12/08/20 07:35 Dose: 5 mg Documented by: Pantoprazole Sodium (Pantoprazole Sodium 40 Mg/10 Ml Vial) 40 mg IVPUSH DAILY@0630 [facility] Last Admin: 12/08/20 05:47 Dose: 40 mg Documented by: Pharmacy Consult (Consult Rx Vancomycin Dosing) 1 each MISCELLANE DAILY PRN PRN Reason: Consult order Pharmacy Consult (Consult Rx Perform Med Rec) 1 each MISCELLANE ONCE PRN PRN Reason: Consult order Pharmacy Consult (Consult Rx Vancomycin Dosing) 1 each MISCELLANE DAILY PRN PRN Reason: Consult order Senna (Sennosides 8.6 Mg Tablet) 17.2 mg PO BEDTIME PRN PRN Reason: Constipation Sertraline HCl (Sertraline Hcl 25 Mg Tablet) 25 mg PO DAILY [facility] Last Admin: 12/08/20 07:35 Dose: 25 mg Documented by: Sodium Chloride (0.9 % Sodium Chloride Flush 3 Ml Syringe) 3 ml IVFLUSH QSHIFT [facility] Last Admin: 12/08/20 07:33 Dose: Not Given Documented by: Home Medications Medication Instructions Recorded Confirmed Last Taken Type amlodipine 2.5 mg tablet 1 tab PO DAILY 12/07/20 12/07/20 Unknown History empagliflozin 10 mg tablet 1 tab PO QAM 12/07/20 12/07/20 Unknown History (Jardiance) insulin aspart U-100 100 unit/mL See Protocol SUBCUT DIRECTED PRN 12/07/20 12/07/20 Unknown History (3 mL) subcutaneous pen (Novolog Flexpen U-100 Insulin aspart) insulin detemir U-100 100 unit/mL 43 unit SUBCUT DAILY 12/07/20 12/07/20 Unknown History (3 mL) subcutaneous pen (Levemir FlexTouch U-100 Insulin) lisinopril 20 mg tablet 1 tab PO DAILY 12/07/20 12/07/20 Unknown History sertraline 25 mg tablet 1 tab PO DAILY 12/07/20 12/07/20 Unknown History Physical Exam Vital Signs: Vital Signs: Last Vital Signs Temp 97.4 F 12/08/20 08:00 Pulse 61 12/08/20 08:00 Resp 20 12/08/20 08:00 BP 131/80 12/08/20 08:00 Pulse Ox 90 L 12/08/20 08:00 Body Mass Index 32.3 Const: General: cooperative Eyes: General: appearance normal, both eyes and all related structures Resp: Effort & Inspection: normal respiratory effort Cardio: Rate: regular rate Rhythm: regular rhythm GI: Palpation (GI): Soft to palpation and nontender : General: Yes no CVA tenderness Back/Spine/Pelvis: Back: no CVA tenderness Extrem: Other: cellulitis foot to mid crews right LE chronic foot ulcers TMA bilaterally Results Labs CBC & Chem 7: 12/07/20 19:53 12/06/20 18:47 Labs: Short CBC 12/06/20 12/07/20 Range/Units 18:47 19:53 WBC 5.5 (4.8-10.8) X10*3/uL Hgb 6.5 L* (12.0-16.0) g/dl Hct 21.0 L* (37-47) % Plt Count 306 (160-400) X10*3/uL Creatinine 1.43 H (0.5-1.4) mg/dL Microbiology Microbiology Results: Microbiology 12/06/20 18:47 Blood - Venous Blood Culture - Preliminary No growth after 24 hours. 12/06/20 18:47 Blood - Venous Blood Culture - Preliminary No growth after 24 hours. Assessment and Plan (1) Cellulitis and abscess of foot: Status: Acute Possible staph/strep/Pseudomonas other Cellulitis new and ulcers longstanding With Charcot feet MRI wouldnt usually be very useful (2) Severe anemia: Status: Acute (3) DM foot ulcer: Status: Acute (4) S/P transmetatarsal amputation of foot: Status: Acute Continue Cefepime and Vancomycin Would await cultures and duration to be determined Would have Dr Arias of Vascular see patient ?debridement
[2020-12-08] MEDS: cefEPime HCl 1 GM in 0.9 % Sodium Chloride 50 ML IV ×3 (14:12→22:26)
[2020-12-08 14:37] LABS: Hematocrit 20.8 % (37-47); Hemoglobin 6.5 g/dl (12.0-16.0)
[2020-12-08 15:24] LABS: Vancomycin Trough 4.5 mcg/mL (10.0-20.0)
[2020-12-08 15:38] LABS: Creatinine Clr Calc Pharmacy 82.5; Estimated Glomerular Filt Rate 57
[2020-12-08] MEDS: Sodium Ferric Gluconat/Sucrose 125 MG in 0.9 % Sodium Chloride 100 ML 100 MG IV (15:55)
--- NOTE | 2020-12-08 15:58 | HO.PM.IMPN ---
Subjective Subjective Date of Service: 12/08/20 Interval History: Being followed for left foot wound and cellulitis, complaining of generalized itch, denies foot pain, refusing blood draws, refusing blood transfusion Review of Systems General no headache, no dizziness, no fever chills. CVS no chest pain, no palpitation. Respiratory no cough, no sob. Gastrointestinal no nausea no vomiting, no abdominal pain Review of Systems: Yes all other systems are reviewed and are negative Physical Exam Vital Signs: Vital Signs: Last Vital Signs Temp 97.4 F 12/08/20 08:00 Pulse 61 12/08/20 08:00 Resp 20 12/08/20 08:00 BP 131/80 12/08/20 08:00 Pulse Ox 90 L 12/08/20 08:00 Body Mass Index 32.3 General awake, alert,no acute distress.? Neck supple,no JVD. CVS? regular rate rhythm, Respiratory lungs clear to auscultation, no respiratory distress, no wheeze, no rhonchi. Gastrointestinal abdomen soft, nontender, bowel sounds audible, no guarding , no rigidity. Extremities left foot significant swelling, dressing in place missing 1st and 5th toes, two open wound dorsum foot with surrounding mild hyperemia, right foot transmetatarsal amputation Neuro nonfocal , speech clear. Skin no rash Psych appropriate affect Objective Data Active Medications Acetaminophen (Acetaminophen 325 Mg Tablet) 650 mg PO Q6H PRN PRN Reason: Pain, Mild (Pain Scale 1-3) Last Admin: 12/07/20 18:10 Dose: 650 mg Documented by: ROBIN Amlodipine Besylate (Amlodipine Besylate 2.5 Mg Tablet) 2.5 mg PO DAILY [facility]; Protocol Last Admin: 12/08/20 07:36 Dose: 2.5 mg Documented by: NAY-ASKSANDRA Dextrose (Dextrose 50 % 25 Gm/50 Ml Vial) 25 gm IVPUSH Q15M PRN; Protocol PRN Reason: per Hypoglycemia Standing Ord. Diphenhydramine HCl (Diphenhydramine Hcl 50 Mg/Ml Vial) 25 mg IVPUSH Q6H PRN PRN Reason: Allergic Reaction Last Admin: 12/08/20 11:04 Dose: 25 mg Documented by: NAY-ASKEP Glucose (Glucose Gel 15 Gm Gel..Gram.) 15 gm PO Q15M PRN; Protocol PRN Reason: per Hypoglycemia Standing Ord. Cefepime HCl 1 gm/ Sodium (Chloride) 50 mls @ 100 mls/hr IV Q12H [facility] Last Infusion: 12/08/20 14:52 Dose: 0 mls/hr Documented by: GERALD Sodium Chloride (Ns) 1,000 mls @ 100 mls/hr IVCONT .Q10H [facility] Last Admin: 12/08/20 10:09 Dose: 75 mls/hr Documented by: GERALD Ferric Sodium Gluconate Complex 125 mg/ Sodium Chloride 110 mls @ 100 mls/hr IV DAILY [facility] Stop: 12/10/20 10:05 Last Admin: 12/08/20 15:55 Dose: 100 mls/hr Documented by: GERALD Insulin Glargine (Insulin Glargine,Hum.Rec.Anlog 100 Unit/Ml 10 Ml Vial) 20 unit SUBCUT BEDTIME [facility] Last Admin: 12/07/20 21:36 Dose: 20 unit Documented by: SHAR Insulin Human Lispro (Insulin Lispro 100 Unit/Ml 3 Ml Vial) 0 unit SUBCUT QIDACHS [facility]; Protocol Last Admin: 12/08/20 12:00 Dose: Not Given Documented by: GERALD Non-Admin Reason: No Insulin Coverage Melatonin (Melatonin 3 Mg Tablet) 6 mg PO BEDTIME PRN PRN Reason: Insomnia Ondansetron HCl (Ondansetron Hcl 4 Mg/2 Ml Vial) 4 mg IVPUSH Q8H PRN PRN Reason: Nausea Last Admin: 12/08/20 11:03 Dose: 4 mg Documented by: GERALD Oxycodone HCl (Oxycodone Hcl Immed Release 5 Mg Tablet) 5 mg PO Q6H PRN PRN Reason: Pain, Severe (Pain Scale 7-10) Last Admin: 12/08/20 07:35 Dose: 5 mg Documented by: GERALD Pantoprazole Sodium (Pantoprazole Sodium 40 Mg/10 Ml Vial) 40 mg IVPUSH DAILY@0630 [facility] Last Admin: 12/08/20 05:47 Dose: 40 mg Documented by: SHANKAR Pharmacy Consult (Consult Rx Vancomycin Dosing) 1 each MISCELLANE DAILY PRN PRN Reason: Consult order Pharmacy Consult (Consult Rx Perform Med Rec) 1 each MISCELLANE ONCE PRN PRN Reason: Consult order Pharmacy Consult (Consult Rx Vancomycin Dosing) 1 each MISCELLANE DAILY PRN PRN Reason: Consult order Senna (Sennosides 8.6 Mg Tablet) 17.2 mg PO BEDTIME PRN PRN Reason: Constipation Sertraline HCl (Sertraline Hcl 25 Mg Tablet) 25 mg PO DAILY [facility] Last Admin: 12/08/20 07:35 Dose: 25 mg Documented by: GERALD Sodium Chloride (0.9 % Sodium Chloride Flush 3 Ml Syringe) 3 ml IVFLUSH QSHIFT [facility] Last Admin: 12/08/20 15:55 Dose: Not Given Documented by: GERALD Non-Admin Reason: IV Running Labs CBC & Chem 7: 12/08/20 14:18 12/08/20 14:18 Labs: Laboratory Results - last 24 hr 12/07/20 12/07/20 12/07/20 17:41 19:53 19:53 MCV 82.7 MCH 25.6 L MCHC 31.0 RDW 13.7 Plt Count 306 MPV 10.0 Immature Gran % (Auto) 0.4 Neut % (Auto) 75.7 H Lymph % (Auto) 12.6 L Graham % (Auto) 7.9 Eos % (Auto) 2.9 Baso % (Auto) 0.5 Lymph # (Auto) 0.7 L Graham # (Auto) 0.4 Eos # (Auto) 0.2 Baso # (Auto) 0.0 Abs Immat Gran (auto) 0.02 Absolute Neuts (auto) 4.1 Absolute Nucleated RBC 0.000 Nucleated RBC % (auto) 0.0 Absolute Retic 0.055 Percent Retic 2.2 H Immature Retic Fraction 16.0 H Retic Hgb Equivalent 25.5 L Estim Creat Clear Calc Estimated GFR POC Glucose 140 H Estimat Average Glucose Hemoglobin A1c % Vitamin B12 697 Folate 9.1 Vancomycin Trough 12/07/20 12/07/20 12/08/20 19:53 20:13 07:08 MCV MCH MCHC RDW Plt Count MPV Immature Gran % (Auto) Neut % (Auto) Lymph % (Auto) Graham % (Auto) Eos % (Auto) Baso % (Auto) Lymph # (Auto) Graham # (Auto) Eos # (Auto) Baso # (Auto) Abs Immat Gran (auto) Absolute Neuts (auto) Absolute Nucleated RBC Nucleated RBC % (auto) Absolute Retic Percent Retic Immature Retic Fraction Retic Hgb Equivalent Estim Creat Clear Calc Estimated GFR POC Glucose 161 H 90 Estimat Average Glucose 260 Hemoglobin A1c % 10.7 Vitamin B12 Folate Vancomycin Trough 12/08/20 12/08/20 12/08/20 11:07 14:18 14:18 MCV MCH MCHC RDW Plt Count MPV Immature Gran % (Auto) Neut % (Auto) Lymph % (Auto) Graham % (Auto) Eos % (Auto) Baso % (Auto) Lymph # (Auto) Graham # (Auto) Eos # (Auto) Baso # (Auto) Abs Immat Gran (auto) Absolute Neuts (auto) Absolute Nucleated RBC Nucleated RBC % (auto) Absolute Retic Percent Retic Immature Retic Fraction Retic Hgb Equivalent Estim Creat Clear Calc Cancelled Estimated GFR Cancelled POC Glucose 105 Estimat Average Glucose Hemoglobin A1c % Vitamin B12 Folate Vancomycin Trough 4.5 L 12/08/20 14:18 MCV MCH MCHC RDW Plt Count MPV Immature Gran % (Auto) Neut % (Auto) Lymph % (Auto) Graham % (Auto) Eos % (Auto) Baso % (Auto) Lymph # (Auto) Graham # (Auto) Eos # (Auto) Baso # (Auto) Abs Immat Gran (auto) Absolute Neuts (auto) Absolute Nucleated RBC Nucleated RBC % (auto) Absolute Retic Percent Retic Immature Retic Fraction Retic Hgb Equivalent Estim Creat Clear Calc 82.5 Estimated GFR 57 POC Glucose Estimat Average Glucose Hemoglobin A1c % Vitamin B12 Folate Vancomycin Trough Microbiology Microbiology Results: Microbiology 12/06/20 18:47 Blood Culture - Preliminary Blood - Venous No growth after 24 hours. 12/06/20 18:47 Blood Culture - Preliminary Blood - Venous No growth after 24 hours. Assessment and Plan (1) Cellulitis and abscess of foot: Status: Acute (2) Severe anemia: Status: Acute (3) DM foot ulcer: Status: Acute (4) S/P transmetatarsal amputation of foot: Status: Acute (5) Osteomyelitis: Status: Acute (6) Diabetic retinopathy: Status: Acute (7) Type 2 diabetes mellitus with hyperglycemia, with long-term current use of insulin: Status: Acute Assessment and Plan: 30-year-old female with a past medical history of hypertension, diabetes, diabetic retinopathy, legally blind, history of diabetic foot ulcers, history of osteomyelitis status post right and left toe amputations; has chronic wound on the foot-[facility]; last visit was 2 weeks ago; presented to the hospital today with a chief complaint of right foot dorsum ulcer, pain, swelling, redness.? Noted to have diabetic foot ulcer/cellulitis.? Admitted for further management. 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 MRI foot today showed charcoat deformity and possible osteomyelitis Continue IV vancomycin and cefepime day 3 Seen by general surgery, they recommended MRI and local wound care, no necrotic tissue identified in the overlying skin for debridement Id recommend to continue her current antibiotic. WBC normalized, blood cultures x2 negative Diabetes mellitus on insulin? Blood sugars stable, On Lantus and Jardiance at home, continue diabetic diet, Insulin sliding scale plus Lantus 20 units.? Hold Jardiance Acute on chronic normocytic Anemia:? Likely anemia of chronic disease Patient denies GI bleed, no hematemesis, no melena, denies heavy periods, patient refusing stool guaiac and blood transfusion Iron studies showed low iron and saturation, ferritin 228,normal B12,/ folate, nl retic Baseline hematocrit 26, down to 20 repeat hematocrit remains low around 20 Haptoglobin/LDH pending Tried convincing patient for blood transfusion but she declined therefore will give her iron infusion Ferrlecit 125 mcg daily x3 dosages Follow H&H MYNOR: likely prerenal; creatinine normalized ,lisinopril held, continue IV fluids since received contrast for MRI study, follow BMP History of hypertension: Continue Norvasc, hold lisinopril as above, blood pressure stable DVT prophylaxis:? No SCD boots given cellulitis; no subcu heparin given concerns for anemia. Recommended early ambulation whenever feasible.? Fall precautions. Code status:? Full code Quality Stroke Does the patient have a stroke diagnosis?: No VTE Prior VTE?: No VTE Risk Level:: Medical - moderate - high VTE Device Contraindication: Treatment Not Indicated VTE Drug Contraindication: N/A - Med Ordered
--- NOTE | 2020-12-08 16:03 | HE.PHANOTE ---
VANCO DOSING CHANGED ORDER TO 1250 Q12H EXPECTED TROUGH 14.5 AUC 484
[2020-12-08 16:35] LABS: Glucose, Whole Blood 105 mg/dL (60-115)
[2020-12-08 17:46] LABS: Lactate Dehydrogenase 154 U/L (122-220)
[2020-12-08] MEDS: 0.9 % Sodium Chloride 1,000 ML 80 ML IVCONT (17:56)
[2020-12-08] MEDS: vancomycin HCL 1,250 MG in 0.9 % Sodium Chloride 250 ML 166.67 MG IV (19:21)
[2020-12-08 20:43] LABS: Glucose, Whole Blood 112 mg/dL (60-115)
[2020-12-09 03:05] VITALS: BP 153/93; PULSE 95; RESP 16; TEMP 36.4; O2SAT 95
[2020-12-09] MEDS: Pantoprazole Sodium 40 MG/10 ML VIAL IVPUSH (06:11)
[2020-12-09] MEDS: vancomycin HCL 1,250 MG in 0.9 % Sodium Chloride 250 ML 166.67 MG IV ×2 (06:11→20:53)
[2020-12-09] MEDS: 0.9 % Sodium Chloride 1,000 ML 80 ML IVCONT ×3 (06:11→20:06)
[2020-12-09 07:48] VITALS: BP 159/93; PULSE 100; RESP 18; TEMP 36.3; O2SAT 97
[2020-12-09 07:56] LABS: Glucose, Whole Blood 100 mg/dL (60-115)
[2020-12-09 08:41] VITALS: BP 159/93; PULSE 100
[2020-12-09] MEDS: amLODIPine Besylate 2.5 MG TABLET PO (08:41)
[2020-12-09] MEDS: 0.9 % Sodium Chloride Flush 3 ML SYRINGE IVFLUSH ×2 (08:41→20:54)
[2020-12-09] MEDS: Sertraline HCL 25 MG TABLET PO (08:42)
[2020-12-09] MEDS: oxyCODONE HCl Immed Release 5 MG TABLET PO ×2 (08:42→21:01)
[2020-12-09] MEDS: ondansetron HCL 4 MG/2 ML VIAL IVPUSH ×2 (10:42→22:16)
[2020-12-09 10:46] LABS: Hematocrit 21.8 % (37-47); Mean Corpuscular HGB Conc 31.2 g/dl (31.0-35.0); Mean Corpuscular Volume 83.2 fL (80-98); Mean Platelet Volume 9.9 fL (9.4-12.3); Platelet Count 337 X10*3/uL (160-400); Red Blood Count 2.62 X10*6/uL (4.20-5.50); White Blood Count 6.2 X10*3/uL (4.8-10.8)
[2020-12-09 10:56] LABS: Hemoglobin 6.8 g/dl (12.0-16.0)
[2020-12-09 10:59] LABS: Creatinine Clr Calc Pharmacy 75.7; Estimated Glomerular Filt Rate 52
[2020-12-09 11:35] LABS: Erythrocyte Sedimentation Rate > 140 MM/HR (0-20)
[2020-12-09] MEDS: Sodium Ferric Gluconat/Sucrose 125 MG in 0.9 % Sodium Chloride 100 ML 100 MG IV (11:39)
[2020-12-09 11:51] VITALS: BP 138/80; PULSE 96; RESP 16; TEMP 36.2; O2SAT 94
[2020-12-09 12:00] LABS: Glucose, Whole Blood 147 mg/dL (60-115)
--- NOTE | 2020-12-09 12:29 | MHC.CM.PN ---
POSSIBLE DC TO HOME SUNDAY MAY NEED LT IV ABX. AWAITING RESULTS AND PLAN. PATIENT IS FULLY INDEPENDENT. CASE MANAGEMENT FOLLOWING
[2020-12-09] MEDS: cefEPime HCl 1 GM in 0.9 % Sodium Chloride 50 ML IV (13:20)
--- NOTE | 2020-12-09 13:54 | P.CONGS_ITS ---
History of Present Illness Consult details Consult date: 12/09/20 Reason for consult: wound care Narrative: 30-year-old diabetic female well known to me due to nonhealing lower extremity ulcers. She has been treated in the past with right-sided transmetatarsal amputation. At that time she left the hospital against medical advice. It was discovered that she was and unfortunately lost her baby in the interim. She has repeatedly no-show to my office but did show a once for removal of suture and jack. She now has developed an ulcer on the transmet atarsal site and new ulcers on the left foot on the dorsum of the foot along with the plantar aspect for the foot. She now presents for vascular evaluation. Review of Systems Review of Systems: Yes all other systems are reviewed and are negative Constitutional: Constitutional: Reports no additional constitutional complaints ENT: Reports Normal hearing present Cardiovascular: Cardiovascular: Denies chest pain, Denies chest pain at rest, Denies chest pain with activity and Denies pedal edema Respiratory: Respiratory: Denies cough Gastrointestinal: Gastrointestinal: Denies abdominal pain Musculoskeletal: Musculoskeletal: Denies abnormal gait, Denies muscle cramps and Denies radiating pain into limb Integumentary/Breasts: Skin/Breast: Denies skin ulcer and Denies wounds Neurologic: Reports Normal hearing present and Denies abnormal gait Psychiatric: Psychiatric: Reports no additional psychiatric complaints PMFSH Past Medical History Medical History Asthma Back pain Blind right eye Depression with anxiety Diabetes Diabetic retinopathy Essential hypertension HTN (hypertension) test positive Type 2 diabetes mellitus with hyperglycemia, with long-term current use of insulin Functional capacity: independent ambulation Family History Family History Mother Coronary artery disease Myocardial infarction Stroke Diabetes mellitus Father Myocardial infarction Family history: reviewed and not pertinent Surgical History Surgical History History of transmetatarsal amputation of foot Social History Social History Household Members: Spouse Household Members Other:: Sister, [id number], nephew Housing: Apartment Do you presently have visiting nurse or other home services: Yes ([employer] services) Alcohol intake: unknown Patient Tobacco Use Status: Never used Tobacco e-Cigarette/Vaping Use: Never Used Second Hand Smoke Exposure: No service: No Current occupational status: disabled Gender identity: Female Meds Allergies Allergy/AdvReac Type Severity Reaction Status Date / Time morphine [MORPHINE] Allergy Severe ORAL Verified 03/30/20 15:43 SWELLING Active Medications: Current Medications Acetaminophen (Acetaminophen 325 Mg Tablet) 650 mg PO Q6H PRN PRN Reason: Pain, Mild (Pain Scale 1-3) Last Admin: 12/07/20 18:10 Dose: 650 mg Documented by: Amlodipine Besylate (Amlodipine Besylate 2.5 Mg Tablet) 2.5 mg PO DAILY [facility]; Protocol Last Admin: 12/09/20 08:41 Dose: 2.5 mg Documented by: Dextrose (Dextrose 50 % 25 Gm/50 Ml Vial) 25 gm IVPUSH Q15M PRN; Protocol PRN Reason: per Hypoglycemia Standing Ord. Diphenhydramine HCl (Diphenhydramine Hcl 50 Mg/Ml Vial) 25 mg IVPUSH Q6H PRN PRN Reason: Allergic Reaction Last Admin: 12/08/20 11:04 Dose: 25 mg Documented by: Glucose (Glucose Gel 15 Gm Gel..Gram.) 15 gm PO Q15M PRN; Protocol PRN Reason: per Hypoglycemia Standing Ord. Cefepime HCl 1 gm/ Sodium (Chloride) 50 mls @ 100 mls/hr IV Q12H [facility] Last Admin: 12/09/20 13:20 Dose: 100 mls/hr Documented by: Sodium Chloride (Ns) 1,000 mls @ 80 mls/hr IVCONT .[id number] [facility] Last Admin: 12/09/20 13:26 Dose: 80 mls/hr Documented by: Ferric Sodium Gluconate Complex 125 mg/ Sodium Chloride 110 mls @ 100 mls/hr IV DAILY [facility] Stop: 12/10/20 10:05 Last Infusion: 12/09/20 13:20 Dose: Infused Documented by: Vancomycin HCl 1,250 mg/ (Sodium Chloride) 250 mls @ 166.667 mls/hr IV Q12H [facility] Last Infusion: 12/09/20 13:20 Dose: Infused Documented by: Insulin Glargine (Insulin Glargine,Hum.Rec.Anlog 100 Unit/Ml 10 Ml Vial) 20 unit SUBCUT BEDTIME [facility] Last Admin: 12/08/20 20:54 Dose: Not Given Documented by: Insulin Human Lispro (Insulin Lispro 100 Unit/Ml 3 Ml Vial) 0 unit SUBCUT QIDACHS [facility]; Protocol Last Admin: 12/09/20 13:05 Dose: Not Given Documented by: Melatonin (Melatonin 3 Mg Tablet) 6 mg PO BEDTIME PRN PRN Reason: Insomnia Ondansetron HCl (Ondansetron Hcl 4 Mg/2 Ml Vial) 4 mg IVPUSH Q8H PRN PRN Reason: Nausea Last Admin: 12/09/20 10:42 Dose: 4 mg Documented by: Oxycodone HCl (Oxycodone Hcl Immed Release 5 Mg Tablet) 5 mg PO Q6H PRN PRN Reason: Pain, Severe (Pain Scale 7-10) Last Admin: 12/09/20 08:42 Dose: 5 mg Documented by: Pantoprazole Sodium (Pantoprazole Sodium 40 Mg/10 Ml Vial) 40 mg IVPUSH DAILY@0630 [facility] Last Admin: 12/09/20 06:11 Dose: 40 mg Documented by: Pharmacy Consult (Consult Rx Vancomycin Dosing) 1 each MISCELLANE DAILY PRN PRN Reason: Consult order Pharmacy Consult (Consult Rx Perform Med Rec) 1 each MISCELLANE ONCE PRN PRN Reason: Consult order Pharmacy Consult (Consult Rx Vancomycin Dosing) 1 each MISCELLANE DAILY PRN PRN Reason: Consult order Senna (Sennosides 8.6 Mg Tablet) 17.2 mg PO BEDTIME PRN PRN Reason: Constipation Sertraline HCl (Sertraline Hcl 25 Mg Tablet) 25 mg PO DAILY [facility] Last Admin: 12/09/20 08:42 Dose: 25 mg Documented by: Sodium Chloride (0.9 % Sodium Chloride Flush 3 Ml Syringe) 3 ml IVFLUSH QSHIFT [facility] Last Admin: 12/09/20 08:41 Dose: 3 ml Documented by: Home Medications Medication Instructions Recorded Confirmed Last Taken Type amlodipine 2.5 mg tablet 1 tab PO DAILY 12/07/20 12/07/20 Unknown History empagliflozin 10 mg tablet 1 tab PO QAM 12/07/20 12/07/20 Unknown History (Jardiance) insulin aspart U-100 100 unit/mL See Protocol SUBCUT DIRECTED PRN 12/07/20 12/07/20 Unknown History (3 mL) subcutaneous pen (Novolog Flexpen U-100 Insulin aspart) insulin detemir U-100 100 unit/mL 43 unit SUBCUT DAILY 12/07/20 12/07/20 Unknown History (3 mL) subcutaneous pen (Levemir FlexTouch U-100 Insulin) lisinopril 20 mg tablet 1 tab PO DAILY 12/07/20 12/07/20 Unknown History sertraline 25 mg tablet 1 tab PO DAILY 12/07/20 12/07/20 Unknown History Physical Exam Vital Signs: Vital Signs: Last Vital Signs Temp 97.1 F 12/09/20 11:51 Pulse 96 12/09/20 11:51 Resp 16 12/09/20 11:51 BP 138/80 12/09/20 11:51 Pulse Ox 94 12/09/20 11:51 Body Mass Index 32.3 Const: General: cooperative, healthy appearing and comfortable Orientation/consciousness: oriented to person, oriented to place and oriented to time HENMT: Head: Yes normal to inspection Neck: Neck: Yes normal visual inspection Carotids: no bruits Chest: Chest palpation & inspection: normal inspection of the chest Resp: Effort & Inspection: normal respiratory effort and able to speak in complete sentences Auscultation: clear to auscultation bilaterally, no crackles, no rales, no rhonchi and no wheezes Cardio: Rate: regular rate Rhythm: regular rhythm Heart sounds: S1 normal heart sound present and S2 normal heart sound present Bruits: no carotid bruits Peripheral pulses: dorsalis pedis present (Bilateral DP signals) GI: Inspection: Yes normal to inspection Skin: Wounds: amputation site (Right side lateral ulcer on trans met) and wounds noted (Left foot dorsum and plantar aspect wounds relatively clean with serous lin) Hair: normal Neuro: General: oriented to person, oriented to place and oriented to time Cranial nerves: Yes CN's II-XII intact bilaterally and Yes Normal hearing present Cognition (Neuro): normal cognition Motor exam (neuro): 5/5 motor strength present throughout Extrem: Other: venous exam: No significant superficial varicosities or spider telangiectasias, minimal edema General: No clubbing, No cyanosis and No edema Psych: Appearance: grossly normal Mental Status: mental status grossly normal Speech and movement: Normal speech and movement present Results Labs Result diagrams: 12/09/20 10:33 12/09/20 10:33 Labs: Abnormal lab results 12/08/20 12/08/20 12/09/20 Range/Units 14:18 14:18 10:33 RBC 2.62 L (4.20-5.50) X10*6/uL Hgb 6.5 L* 6.8 L* (12.0-16.0) g/dl Hct 20.8 L* 21.8 L (37-47) % MCH 26.0 L (27.0-33.0) pg ESR (0-20) MM/HR POC Glucose (60-115) mg/dL C-Reactive Protein (< or = 0.50) mg/dL Vancomycin Trough 4.5 L (10.0-20.0) mcg/mL 12/09/20 12/09/20 12/09/20 Range/Units 10:33 10:33 11:50 RBC (4.20-5.50) X10*6/uL Hgb (12.0-16.0) g/dl Hct (37-47) % MCH (27.0-33.0) pg ESR > 140 H (0-20) MM/HR POC Glucose 147 H (60-115) mg/dL C-Reactive Protein 5.30 H (< or = 0.50) mg/dL Vancomycin Trough (10.0-20.0) mcg/mL Short CBC 12/08/20 12/09/20 Range/Units 14:18 10:33 WBC 6.2 (4.8-10.8) X10*3/uL Hgb 6.5 L* 6.8 L* (12.0-16.0) g/dl Hct 20.8 L* 21.8 L (37-47) % Plt Count 337 (160-400) X10*3/uL BMP 12/08/20 12/08/20 12/09/20 14:18 14:18 10:33 Creatinine Cancelled 1.11 1.21 All other labs normal. Assessment and Plan (1) DM foot ulcer: Status: Acute In short patient is stable from my perspective and would continue with local wound care. She may need long-term antibiotics the concern is how compliant she could be. I have taken the liberty of ordering noninvasive arterial testing. We will follow up with testing. Thank you for allowing us to participate in her care. If there are any questions or concerns please do not hesitate to contact us. Procedures Date of Service Date of Service: 12/09/20
--- NOTE | 2020-12-09 14:06 | HO.PM.IMPN ---
Subjective Subjective Date of Service: 12/09/20 Interval History: Continues to refuse blood transfusion Denies foot pain but neuropathic No fever Review of Systems Review of Systems: Yes all other systems are reviewed and are negative Physical Exam Vital Signs: Vital Signs: Last Vital Signs Temp 97.1 F 12/09/20 11:51 Pulse 96 12/09/20 11:51 Resp 16 12/09/20 11:51 BP 138/80 12/09/20 11:51 Pulse Ox 94 12/09/20 11:51 Gen: NAD HEENT: sclera anicteric, moist mucus membranes Neck: supple Lungs: clear to auscultation bilaterally Heart: regular rate and rhythm, no murmurs Abd: soft, non-tender, non-distended Ext: no edema Skin: s/p L TMA, s/p R 4th + 5th toe amputations with open wound on dorsum of R foot Neuro: alert and oriented x3, no focal findings Psych: appropriate affect Objective Data Active Medications Acetaminophen (Acetaminophen 325 Mg Tablet) 650 mg PO Q6H PRN PRN Reason: Pain, Mild (Pain Scale 1-3) Last Admin: 12/07/20 18:10 Dose: 650 mg Documented by: ROBIN Amlodipine Besylate (Amlodipine Besylate 2.5 Mg Tablet) 2.5 mg PO DAILY [facility]; Protocol Last Admin: 12/09/20 08:41 Dose: 2.5 mg Documented by: PATRIC Dextrose (Dextrose 50 % 25 Gm/50 Ml Vial) 25 gm IVPUSH Q15M PRN; Protocol PRN Reason: per Hypoglycemia Standing Ord. Diphenhydramine HCl (Diphenhydramine Hcl 50 Mg/Ml Vial) 25 mg IVPUSH Q6H PRN PRN Reason: Allergic Reaction Last Admin: 12/08/20 11:04 Dose: 25 mg Documented by: NAY-ANNEEP Glucose (Glucose Gel 15 Gm Gel..Gram.) 15 gm PO Q15M PRN; Protocol PRN Reason: per Hypoglycemia Standing Ord. Cefepime HCl 1 gm/ Sodium (Chloride) 50 mls @ 100 mls/hr IV Q12H [facility] Last Admin: 12/09/20 13:20 Dose: 100 mls/hr Documented by: PATRIC Sodium Chloride (Ns) 1,000 mls @ 80 mls/hr IVCONT .[id number] [facility] Last Admin: 12/09/20 13:26 Dose: 80 mls/hr Documented by: PATRIC Ferric Sodium Gluconate Complex 125 mg/ Sodium Chloride 110 mls @ 100 mls/hr IV DAILY [facility] Stop: 12/10/20 10:05 Last Infusion: 12/09/20 13:20 Dose: 0 mls/hr Documented by: PATRIC Vancomycin HCl 1,250 mg/ (Sodium Chloride) 250 mls @ 166.667 mls/hr IV Q12H [facility] Last Infusion: 12/09/20 13:20 Dose: 0 mls/hr Documented by: PATRIC Insulin Glargine (Insulin Glargine,Hum.Rec.Anlog 100 Unit/Ml 10 Ml Vial) 20 unit SUBCUT BEDTIME [facility] Last Admin: 12/08/20 20:54 Dose: Not Given Documented by: EVY Non-Admin Reason: No Insulin Coverage Comments: per md shine Insulin Human Lispro (Insulin Lispro 100 Unit/Ml 3 Ml Vial) 0 unit SUBCUT QIDACHS [facility]; Protocol Last Admin: 12/09/20 13:05 Dose: Not Given Documented by: PATRIC Non-Admin Reason: No Insulin Coverage Melatonin (Melatonin 3 Mg Tablet) 6 mg PO BEDTIME PRN PRN Reason: Insomnia Ondansetron HCl (Ondansetron Hcl 4 Mg/2 Ml Vial) 4 mg IVPUSH Q8H PRN PRN Reason: Nausea Last Admin: 12/09/20 10:42 Dose: 4 mg Documented by: PATRIC Oxycodone HCl (Oxycodone Hcl Immed Release 5 Mg Tablet) 5 mg PO Q6H PRN PRN Reason: Pain, Severe (Pain Scale 7-10) Last Admin: 12/09/20 08:42 Dose: 5 mg Documented by: PATRIC Pantoprazole Sodium (Pantoprazole Sodium 40 Mg/10 Ml Vial) 40 mg IVPUSH DAILY@0630 [facility] Last Admin: 12/09/20 06:11 Dose: 40 mg Documented by: YASEMIN Pharmacy Consult (Consult Rx Vancomycin Dosing) 1 each MISCELLANE DAILY PRN PRN Reason: Consult order Pharmacy Consult (Consult Rx Perform Med Rec) 1 each MISCELLANE ONCE PRN PRN Reason: Consult order Pharmacy Consult (Consult Rx Vancomycin Dosing) 1 each MISCELLANE DAILY PRN PRN Reason: Consult order Senna (Sennosides 8.6 Mg Tablet) 17.2 mg PO BEDTIME PRN PRN Reason: Constipation Sertraline HCl (Sertraline Hcl 25 Mg Tablet) 25 mg PO DAILY [facility] Last Admin: 12/09/20 08:42 Dose: 25 mg Documented by: PATRIC Sodium Chloride (0.9 % Sodium Chloride Flush 3 Ml Syringe) 3 ml IVFLUSH QSHIFT [facility] Last Admin: 12/09/20 08:41 Dose: 3 ml Documented by: PATRIC Labs CBC & Chem 7: 12/09/20 10:33 12/09/20 10:33 Labs: Laboratory Results - last 24 hr 12/08/20 12/08/20 12/08/20 14:18 14:18 14:18 MCV MCH MCHC RDW Plt Count MPV Absolute Nucleated RBC Nucleated RBC % (auto) ESR Estim Creat Clear Calc Cancelled 82.5 Estimated GFR Cancelled 57 POC Glucose Lactate Dehydrogenase 154 C-Reactive Protein Vancomycin Trough 4.5 L 12/08/20 12/08/20 12/09/20 16:30 20:36 07:51 MCV MCH MCHC RDW Plt Count MPV Absolute Nucleated RBC Nucleated RBC % (auto) ESR Estim Creat Clear Calc Estimated GFR POC Glucose 105 112 100 Lactate Dehydrogenase C-Reactive Protein Vancomycin Trough 12/09/20 12/09/20 12/09/20 10:33 10:33 10:33 MCV 83.2 MCH 26.0 L MCHC 31.2 RDW 14.0 Plt Count 337 MPV 9.9 Absolute Nucleated RBC 0.000 Nucleated RBC % (auto) 0.0 ESR > 140 H Estim Creat Clear Calc 75.7 Estimated GFR 52 POC Glucose Lactate Dehydrogenase C-Reactive Protein Vancomycin Trough 12/09/20 12/09/20 10:33 11:50 MCV MCH MCHC RDW Plt Count MPV Absolute Nucleated RBC Nucleated RBC % (auto) ESR Estim Creat Clear Calc Estimated GFR POC Glucose 147 H Lactate Dehydrogenase C-Reactive Protein 5.30 H Vancomycin Trough Impressions Foot MRI 12/08/20 13:37 IMPRESSION: Charcot arthropathy of the midfoot as described. Given the superficial soft tissue ulcerations and sinus tract extension to the neuropathic changes, superinfection and osteomyelitis is suspected. The extent of the osteomyelitis is uncertain as imaging characteristics of osteomyelitis and active neuropathic changes are similar. Microbiology Microbiology Results: Microbiology 12/06/20 18:47 Blood Culture - Preliminary Blood - Venous No growth after 48 hours. 12/06/20 18:47 Blood Culture - Preliminary Blood - Venous No growth after 48 hours. Assessment and Plan (1) Cellulitis and abscess of foot: Status: Acute (2) Severe anemia: Status: Acute (3) DM foot ulcer: Status: Acute (4) S/P transmetatarsal amputation of foot: Status: Acute (5) Osteomyelitis: Status: Acute (6) Diabetic retinopathy: Status: Acute (7) Type 2 diabetes mellitus with hyperglycemia, with long-term current use of insulin: Status: Acute Assessment and Plan: hospital d#4 30yo F with uncontrolled DM2 (A1c 10.7) with retinopathy and legally blind, HTN, hx osteomyelitis s/p L TMTA + multiple R toe amputations presented with worsening pain, swelling, redness, and drainage from R foot # R foot osteomyelitis - IV vancomycin + cefepime d#4- change latter to pip/esme. ID following - not bacteremic. order PICC line. likely needs 6 wk IV ABX - Vascular Surgery consulted. nothing to drain at this point # DM2 - basal/bolus insulin; also on empagliflozin at home # anemia of chronic disease with iron deficiency - refuses stool guaiac + blood transfusion. no islam objection; just doesn't want blood from other patients - on day #2/3 of IV iron # MYNOR - resolved after IV fluids + holding lisinopril, was prerenal # HTN - continue amlodipine; lisinopril on hold # VTE ppx - SCDs # dispo - anticipate home with VNA with long-term ABX Quality Stroke Does the patient have a stroke diagnosis?: No VTE Prior VTE?: No VTE Risk Level:: Medical - moderate - high VTE Device Contraindication: Treatment Not Indicated VTE Drug Contraindication: N/A - Med Ordered
[2020-12-09 16:00] VITALS: BP 146/77; PULSE 99; RESP 16; TEMP 36.2; O2SAT 99
[2020-12-09] MEDS: Piperacillin Sodium/Tazobactam 3.375 GM in 0.9 % Sodium Chloride 50 ML IV ×2 (17:00→20:04)
[2020-12-09 17:06] LABS: Glucose, Whole Blood 201 mg/dL (60-115)
[2020-12-09] MEDS: Insulin Lispro 100 UNIT/ML 3 ML VIAL SUBCUT (17:44)
[2020-12-09 20:24] LABS: Glucose, Whole Blood 132 mg/dL (60-115)
[2020-12-09] MEDS: Insulin Glargine,Hum.rec.anlog 100 UNIT/ML 10 ML VIAL 20 UNIT SUBCUT (20:53)
[2020-12-10] VITALS (7 sets, daily range): BP systolic 126–166; BP diastolic 72–87; PULSE 94–100; RESP 14–18; TEMP 36.1–36.9; O2SAT 93–98
[2020-12-10] MEDS: Piperacillin Sodium/Tazobactam 3.375 GM in 0.9 % Sodium Chloride 50 ML IV ×2 (03:05→08:05)
--- NOTE | 2020-12-10 07:06 | PC.NURSE ---
Pt refuse Vancomycin trough level. MD was notified. said to wait for day team to answer if Vanco should still be given
[2020-12-10 07:53] LABS: Glucose, Whole Blood 109 mg/dL (60-115)
[2020-12-10] MEDS: oxyCODONE HCl Immed Release 5 MG TABLET PO ×2 (08:05→14:01)
[2020-12-10] MEDS: diphenhydrAMINE HCL 50 MG/ML VIAL 25 MG IVPUSH (08:05)
[2020-12-10] MEDS: amLODIPine Besylate 2.5 MG TABLET PO (08:05)
[2020-12-10] MEDS: Sertraline HCL 25 MG TABLET PO (08:05)
[2020-12-10] MEDS: LORazepam 1 MG TABLET PO (08:31)
--- NOTE | 2020-12-10 10:10 | HO.PICC ---
[facility] Diagnosis: OSTEOMYELITIS Indication: SNF IV ANTIBIOTICS Pertinent Labs: REVIEWED Technique: Following informed consent including risks, benefits and alternatives and using sterile technique including cap and mask, sterile gown, glove and drape, the RIGHT arm was prepped and draped in the usual sterile fashion of full barrier technique with [facility]. Following completion of [place] Protocol the skin and soft tissues were anesthetized with 1% Lidocaine plain. Using ultrasound guidance, BRACHIAL vein access was obtained IN SINGLE ATTEMPT; x1 UNSUCCESSFUL ATTEMPT TO RUE CEPHALIC VEIN (UNABLE TO WIRE D/T VASOSPASM) SO TOTAL x2 ATTEMPTS. Over an 0.018 wire through peel-away sheath, a 4-SINGAPOREAN, SINGLE LUMEN, PASV PICC line was positioned. Catheter length is 36 CM internal length, 2 CM external length, for a total trimmed length of 38 CM. The procedure was performed in S-272. Tip verification was performed by Jane Zarate with [employer] 3CG. Tip located in SVC. Ultrasound was used to document vein patency and for needle entry. A formal ultrasound picture and cardiac rhythm strip was recorded. V[facility] [employer] has released the line for use and it is currently dressed with a StatLock, Tegaderm, and CHG disc. Verification has been performed for blood return and line patency. Arm Circumference: 31.5 CM Equipment: [employer] POWERPICC SOLO Catheter Type: 4-SINGAPOREAN, SINGLE LUMEN, PASV Lot #: [id number]
[2020-12-10] MEDS: Sodium Ferric Gluconat/Sucrose 125 MG in 0.9 % Sodium Chloride 100 ML 100 MG IV (10:32)
[2020-12-10] MEDS: 0.9 % Sodium Chloride Flush 10 ML SYRINGE 5 ML IVFLUSH ×3 (10:33→21:17)
--- NOTE | 2020-12-10 11:25 | MHC.CM.PN ---
REFERRAL TO [facility] FOR IV ABX QD (6 WEEKS) CASE MANAGEMENT FOLLOWING
[2020-12-10 11:53] LABS: Glucose, Whole Blood 80 mg/dL (60-115)
[2020-12-10] MEDS: Ertapenem Sodium 1 GM in 0.9 % Sodium Chloride 50 ML IV (11:56)
--- NOTE | 2020-12-10 13:58 | P.PNIM_ITS ---
Subjective Subjective Date of Service: 12/10/20 Interval History: Continues to refuse blood transfusion Minimal foot pain but neuropathic No fever To get PICC today Review of Systems Review of Systems: Yes all other systems are reviewed and are negative Physical Exam Vital Signs: Vital Signs: Last Vital Signs Temp 98.5 F 12/10/20 11:56 Pulse 97 12/10/20 11:56 Resp 18 12/10/20 11:56 BP 155/83 H 12/10/20 11:56 Pulse Ox 94 12/10/20 11:56 Body Mass Index 32.3 Gen: NAD HEENT: sclera anicteric, moist mucus membranes Neck: supple Lungs: clear to auscultation bilaterally Heart: regular rate and rhythm, no murmurs Abd: soft, non-tender, non-distended Ext: no edema Skin: s/p L TMA with plantar ulcer + 2 dorsal ulcers, s/p R 4th + 5th toe amputations with open wound on dorsum of R foot Neuro: alert and oriented x3, dense neuropathy lower extremities Psych: appropriate affect Objective Data Active Medications Acetaminophen (Acetaminophen 325 Mg Tablet) 650 mg PO Q6H PRN PRN Reason: Pain, Mild (Pain Scale 1-3) Last Admin: 12/07/20 18:10 Dose: 650 mg Documented by: ROBIN Amlodipine Besylate (Amlodipine Besylate 2.5 Mg Tablet) 2.5 mg PO DAILY [facility]; Protocol Last Admin: 12/10/20 08:05 Dose: 2.5 mg Documented by: KATHERINE Dextrose (Dextrose 50 % 25 Gm/50 Ml Vial) 25 gm IVPUSH Q15M PRN; Protocol PRN Reason: per Hypoglycemia Standing Ord. Diphenhydramine HCl (Diphenhydramine Hcl 50 Mg/Ml Vial) 25 mg IVPUSH Q6H PRN PRN Reason: Allergic Reaction Last Admin: 12/10/20 08:05 Dose: 25 mg Documented by: KATHERINE Glucose (Glucose Gel 15 Gm Gel..Gram.) 15 gm PO Q15M PRN; Protocol PRN Reason: per Hypoglycemia Standing Ord. Insulin Glargine (Insulin Glargine,Hum.Rec.Anlog 100 Unit/Ml 10 Ml Vial) 20 unit SUBCUT BEDTIME [facility] Last Admin: 12/09/20 20:53 Dose: 20 unit Documented by: YASEMIN Insulin Human Lispro (Insulin Lispro 100 Unit/Ml 3 Ml Vial) 0 unit SUBCUT QIDACHS [facility]; Protocol Last Admin: 12/10/20 11:56 Dose: Not Given Documented by: KATHERINE Non-Admin Reason: No Insulin Coverage Melatonin (Melatonin 3 Mg Tablet) 6 mg PO BEDTIME PRN PRN Reason: Insomnia Ondansetron HCl (Ondansetron Hcl 4 Mg/2 Ml Vial) 4 mg IVPUSH Q8H PRN PRN Reason: Nausea Last Admin: 12/09/20 22:16 Dose: 4 mg Documented by: ISHAAN Oxycodone HCl (Oxycodone Hcl Immed Release 5 Mg Tablet) 5 mg PO Q6H PRN PRN Reason: Pain, Severe (Pain Scale 7-10) Last Admin: 12/10/20 08:05 Dose: 5 mg Documented by: KATHERINE Pharmacy Consult (Consult Rx Vancomycin Dosing) 1 each MISCELLANE DAILY PRN PRN Reason: Consult order Pharmacy Consult (Consult Rx Perform Med Rec) 1 each MISCELLANE ONCE PRN PRN Reason: Consult order Pharmacy Consult (Consult Rx Vancomycin Dosing) 1 each MISCELLANE DAILY PRN PRN Reason: Consult order Senna (Sennosides 8.6 Mg Tablet) 17.2 mg PO BEDTIME PRN PRN Reason: Constipation Sertraline HCl (Sertraline Hcl 25 Mg Tablet) 25 mg PO DAILY [facility] Last Admin: 12/10/20 08:05 Dose: 25 mg Documented by: KATHERINE Sodium Chloride (0.9 % Sodium Chloride Flush 3 Ml Syringe) 3 ml IVFLUSH QSHIFT [facility] Last Admin: 12/10/20 07:58 Dose: Not Given Documented by: KATHERINE Non-Admin Reason: IV Running Sodium Chloride (0.9 % Sodium Chloride Flush 10 Ml Syringe) 5 ml IVFLUSH TID [facility] Last Admin: 12/10/20 10:33 Dose: 5 ml Documented by: KATHERINE Labs CBC & Chem 7: 12/09/20 10:33 12/09/20 10:33 Labs: Laboratory Results - last 24 hr 12/09/20 12/09/20 12/10/20 16:57 20:08 07:44 POC Glucose 201 H 132 H 109 12/10/20 11:30 POC Glucose 80 Assessment and Plan (1) Cellulitis and abscess of foot: Status: Acute (2) Severe anemia: Status: Acute (3) DM foot ulcer: Status: Acute (4) S/P transmetatarsal amputation of foot: Status: Acute (5) Osteomyelitis: Status: Acute (6) Diabetic retinopathy: Status: Acute (7) Type 2 diabetes mellitus with hyperglycemia, with long-term current use of insulin: Status: Acute Assessment and Plan: hospital d#5 30yo F with uncontrolled DM2 (A1c 10.7) with retinopathy and legally blind, HTN, hx osteomyelitis s/p L TMTA + multiple R toe amputations presented with worsening pain, swelling, redness, and drainage from R foot # R foot osteomyelitis - IV vancomycin + cefepime d# to change to ertapenem today; no hx of MRSA; ID following - PICC today - weekly labs as outpt: CBCd, BMP, ESR, CRP - Vascular Surgery consulted; nothing to drain at this point # DM2 - basal/bolus insulin; also on empagliflozin at home # anemia of chronic disease with iron deficiency - refuses stool guaiac + blood transfusion. no amish objection; just doesn't want blood from other patients - on day #3/3 of IV iron # MYNOR - resolved after IV fluids + holding lisinopril, was prerenal; resume lisinopril # HTN - continue amlodipine;resume lisinopril # VTE ppx - SCDs # dispo - anticipate home with VNA with long-term ABX tomorow Quality Stroke Does the patient have a stroke diagnosis?: No VTE Prior VTE?: No VTE Risk Level:: Medical - moderate - high VTE Device Contraindication: Treatment Not Indicated VTE Drug Contraindication: N/A - Med Ordered
--- NOTE | 2020-12-10 14:01 | PC.NURSE ---
Skin/wound assessment completed. Patient has 3 diabetic ulcer to left foot, 2 dorsal and 1 plantar. Patient also has diabetic ulcer to right lateral foot. EPC cream applied around edges then silver alginate applied to all wounds covered with gauze and rooll gauze. No other skin issues noted at this time.
[2020-12-10] MEDS: lisinopriL 20 MG TABLET PO (14:26)
[2020-12-10 16:58] LABS: UPreg QC Valid YES; Urine Pregnancy NEGATIVE (NEGATIVE)
[2020-12-10 17:06] LABS: Glucose, Whole Blood 77 mg/dL (60-115)
[2020-12-10] MEDS: 0.9 % Sodium Chloride Flush 3 ML SYRINGE IVFLUSH (17:34)
[2020-12-10 20:59] LABS: Glucose, Whole Blood 60 mg/dL (60-115)
[2020-12-10 21:39] LABS: Glucose, Whole Blood 98 mg/dL (60-115)
--- NOTE | 2020-12-10 21:49 | PC.NURSE ---
2049 poc-60 apple juice given repeat poc at 2129 98.pt states knows when blood sugar in low.instructed pt to ring if feels blood sugar is low.
[2020-12-11 04:00] VITALS: BP 136/67; PULSE 94; RESP 16; TEMP 36.2; O2SAT 94
[2020-12-11 05:15] LABS: Anion Gap 10 (12-20); Blood Urea Nitrogen 9 mg/dL (9-16); Calcium 7.3 mg/dL (8.4-10.2); Carbon Dioxide 22 mmol/L (22-29); Chloride 110 mmol/L (96-108); Creatinine Clr Calc Pharmacy 83.3; Estimated Glomerular Filt Rate 58; Glucose Random 65 mg/dL (60-115); Potassium 3.4 mmol/L (3.3-5.1); Sodium 139 mmol/L (135-145)
[2020-12-11 08:00] VITALS: BP 164/89; PULSE 94; RESP 18; TEMP 36.7; O2SAT 94
[2020-12-11 08:14] LABS: Glucose, Whole Blood 61 mg/dL (60-115)
--- NOTE | 2020-12-11 08:31 | MHC.CM.PN ---
IMM 12/11/20, PT WILL D/C AFTER DOSE OF IV ERTAPENEM W/[facility] AND [facility], PT WILL ARRANGE TRANSPORTATION. D/C SUMMARY TO BE FAXED TO [facility] AT [phone]
[2020-12-11 09:38] VITALS: BP 164/89; PULSE 94
[2020-12-11] MEDS: amLODIPine Besylate 2.5 MG TABLET PO (09:38)
[2020-12-11] MEDS: lisinopriL 20 MG TABLET PO (09:38)
[2020-12-11] MEDS: Sertraline HCL 25 MG TABLET PO (09:38)
[2020-12-11] MEDS: oxyCODONE HCl Immed Release 5 MG TABLET PO (09:39)
[2020-12-11] MEDS: 0.9 % Sodium Chloride Flush 3 ML SYRINGE IVFLUSH ×2 (09:39→16:20)
[2020-12-11] MEDS: 0.9 % Sodium Chloride Flush 10 ML SYRINGE 5 ML IVFLUSH ×2 (09:39→16:18)
--- NOTE | 2020-12-11 10:20 | W.MHC.F2F ---
Service Date Service Date: 12/11/20 Encounter Date of encounter: 12/11/20 Reasons for Services Reason for detention: wound care, central line care, medication management, medication treatment and teach disease management Reason for physical therapy: home safety and mobility, therapeutic exercises, restore joint function, gait/transfer training, assess need for DME, ADL training and energy conservation MD Overseeing Care: Abdon Beard Homebound: Leaving the home is medically contraindicated at this time without the asist of a device and/or another person due th the listed conditions above and below. Reason homebound: unsteady gait / fall risk, poor balance / fall risk and immunosuppression / infection risk Homebound supporting statement: Daily IV infusion: ertapenem 1 g x 36 days Daily wound care orders: Cleanse with soap and water, rinse thoroughly and pat dry. Apply EPC barrier cream around ulcers on right and left feet, then cut a 3 inch strip of silver alginate and tuck into anterior dorsal ulcer and leave tail out. Apply silver alginate to left and right ulcers and to left plantar ulcer, cover all with non woven gauze and roll gauze. No Kerlix gauze please. Certification: Based on the above findings, I certify that this patient is confined to the home and needs intermittent detention care, physical therapy and/or speech therapy, or continues to need occupational therapy. The patient is under my care, and I have initiated the establishment of the plan of care. The patient will be followed by a physician who will periodically review the plan of care.
--- NOTE | 2020-12-11 10:21 | PM.DS ---
DS: Providers Provider Date of Service: 12/11/20 Date of admission: 12/06/20 23:14 Primary care physician: Abdon Beard MD Consults: 12/06/20 23:16 Consult to General Surgery Routine Consulting Provider: Tu Rajput Reason for consultation: DM foot infection Consult to Infectious Diseases Routine Consulting Provider: Yamilet Diallo Reason for consultation: DM foot infection 12/07/20 07:58 Consult to Hematology / Oncology Routine Consulting Provider: Tita Arce Reason for consultation: anemia 12/09/20 07:22 Consult to Vascular Surgery Routine Consulting Provider: Nomi Arias Reason for consultation: Diabetic foot abscess, previous transmet amp DS: Diagnosis Discharge Diagnosis (1) Cellulitis and abscess of foot: Status: Acute (2) Severe anemia: Status: Acute (3) DM foot ulcer: Status: Acute (4) S/P transmetatarsal amputation of foot: Status: Acute (5) Osteomyelitis: Status: Acute (6) Type 2 diabetes mellitus with hyperglycemia, with long-term current use of insulin: Status: Acute DS: Summary Hospital Course Hospital Course: from admission history and physical by hospitalist Jean-Paul Joseph, 12/06/20: 30-year-old female with a past medical history of hypertension, diabetes, diabetic retinopathy, legally blind, history of diabetic foot ulcers, history of osteomyelitis status post right and left toe amputations; has chronic wound on the foot-[facility]; last visit was 2 weeks ago; presented to the hospital today with a chief complaint of right foot dorsum ulcer, pain, swelling, redness. Patient reports that symptoms started about 2 weeks ago; gradually increasing; denies any chest pain palpitations. Denies any fever chills cough. Denies any numbness tingling or focal weakness. Reports that she does have dressing at home daily for the wounds. Denies any falls or trauma. Denies any abdominal pain. Patient denies any melena bright red blood per rectum. Denies any blood in the vomitus. Denies any menstruations currently. Review of all other systems is negative except mentioned above ER course: Per ER team patient noted to have dorsum of the foot ulcer; erythema extending up over the lower legs; given antibiotics for diabetic foot ulcer. X-ray showed no evidence of gas, noted chronic changes-postsurgical. Patient also noted a hemoglobin of 6; denies any signs of bleeding. Refused guaiac test and refused rectal exam. This 30yo F with uncontrolled DM2 (A1c 10.7) with retinopathy and legally blind, HTN, hx osteomyelitis s/p L TMTA + multiple R toe amputations presented with worsening pain, swelling, redness, and drainage from R foot and was admitted for what ended up being osteomyelitis of the right foot. She was treated with vancomycin and cefepime and changed to ertapenem. Total length of antibiotics will be 42 days, minus 6 days done in the hospital. She was not bacteremic. There was no fluid collection to drain per the surgeon. She does not have a history of MRSA infection. PICC was placed. She was also noted to have severe anemia of chronic disease with iron deficiency. She refused blood transfusion. She was given IV iron and dischraged on PO iron. She had mild MYNOR on admission that resolved after IV fluids and holding lisinopril; lisinopril was resumed. The importance of good glycemic control was counseled. VNA services will be arranged and she will need weekly labs while on ertapenem 1g IV daily: CBCd, CMP, ESR, CRP. Wound care will be arranged daily as per orders below. She should follow up with ID in 2 weeks, Vascular Surgery in 2 weeks, and Primary Care in 1 week. Time Spent with Patient Time attestation: Total time spent providing and/or coordinating discharge services: Discharge coordination time: Greater than 30 minutes Quality: Stroke Does the patient have a stroke diagnosis?: No Physical Exam Vital Signs: Vital Signs: Last Vital Signs Temp 98.0 F 12/11/20 08:00 Pulse 94 12/11/20 09:38 Resp 18 12/11/20 08:00 BP 164/89 H 12/11/20 09:38 Pulse Ox 94 12/11/20 08:00 Body Mass Index 32.3 Gen: NAD HEENT: sclera anicteric, moist mucus membranes Neck: supple Lungs: clear to auscultation bilaterally Heart: regular rate and rhythm, no murmurs Abd: soft, non-tender, non-distended Ext: no edema Skin: s/p L TMA with plantar ulcer + 2 dorsal ulcers, s/p R 4th + 5th toe amputations with open wound on dorsum of R foot Neuro: alert and oriented x3, dense neuropathy lower extremities Psych: appropriate affect DS: Data Data Completed and Pending Completed studies during hospitalization [Text1]: Laboratory Results WBC 6.2 X10*3/uL (4.8-10.8) 12/09/20 10:33 RBC 2.62 X10*6/uL (4.20-5.50) L 12/09/20 10:33 Hgb 6.8 g/dl (12.0-16.0) L* 12/09/20 10:33 Hct 21.8 % (37-47) L 12/09/20 10:33 MCV 83.2 fL (80-98) 12/09/20 10:33 MCH 26.0 pg (27.0-33.0) L 12/09/20 10:33 MCHC 31.2 g/dl (31.0-35.0) 12/09/20 10:33 RDW 14.0 % (11.0-16.0) 12/09/20 10:33 Plt Count 337 X10*3/uL (160-400) 12/09/20 10:33 MPV 9.9 fL (9.4-12.3) 12/09/20 10:33 Immature Gran % (Auto) 0.4 % (0.0-0.4) 12/07/20 19:53 Neut % (Auto) 75.7 % (45-73) H 12/07/20 19:53 Lymph % (Auto) 12.6 % (20-40) L 12/07/20 19:53 [place] % (Auto) 7.9 % (2-11) 12/07/20 19:53 Eos % (Auto) 2.9 % (0-4) 12/07/20 19:53 Baso % (Auto) 0.5 % (0-2) 12/07/20 19:53 Lymph # (Auto) 0.7 X10*3/uL (1.2-4.9) L 12/07/20 19:53 [place] # (Auto) 0.4 X10*3/uL (0.1-1.2) 12/07/20 19:53 Eos # (Auto) 0.2 X10*3/uL (0.0-0.4) 12/07/20 19:53 Baso # (Auto) 0.0 X10*3/uL (0.0-0.2) 12/07/20 19:53 Abs Immat Gran (auto) 0.02 X10*3/uL (0.00-0.03) 12/07/20 19:53 Absolute Neuts (auto) 4.1 X10*3/uL (2.0-8.3) 12/07/20 19:53 Absolute Nucleated RBC 0.000 X10*3/uL (0.0-0.012) 12/09/20 10:33 Nucleated RBC % (auto) 0.0 /100WBC (0.0-0.2) 12/09/20 10:33 ESR > 140 MM/HR (0-20) H 12/09/20 10:33 Absolute Retic 0.055 X10*6/uL (0.026-0.095) 12/07/20 19:53 Percent Retic 2.2 % (0.5-1.8) H 12/07/20 19:53 Immature Retic Fraction 16.0 % (3.0-15.9) H 12/07/20 19:53 Retic Hgb Equivalent 25.5 pg (30.0-35.0) L 12/07/20 19:53 VBG pH 7.41 (7.32-7.43) 12/06/20 18:52 VBG pCO2 37 mmHg 12/06/20 18:52 VBG pO2 47 mmHg 12/06/20 18:52 VBG HCO3 24 mmol/L (22-26) 12/06/20 18:52 VBG O2 Saturation 74.0 % 12/06/20 18:52 VBG Base Excess 0.0 mmol/L 12/06/20 18:52 Sodium 139 mmol/L (135-145) 12/11/20 04:25 Potassium 3.4 mmol/L (3.3-5.1) 12/11/20 04:25 Chloride 110 mmol/L (96-108) H 12/11/20 04:25 Carbon Dioxide 22 mmol/L (22-29) 12/11/20 04:25 Anion Gap 10 (12-20) L 12/11/20 04:25 BUN 9 mg/dL (9-16) 12/11/20 04:25 Creatinine 1.10 mg/dL (0.5-1.4) 12/11/20 04:25 Creatinine Cancelled 12/11/20 04:25 Estim Creat Clear Calc 83.3 12/11/20 04:25 Estim Creat Clear Calc Cancelled 12/11/20 04:25 Estimated GFR 58 12/11/20 04:25 Estimated GFR Cancelled 12/11/20 04:25 POC Glucose 61 mg/dL (60-115) 12/11/20 08:07 Random Glucose 65 mg/dL (60-115) 12/11/20 04:25 Estimat Average Glucose 260 mg/dL 12/07/20 19:53 Hemoglobin A1c % 10.7 % 12/07/20 19:53 Lactic Acid 0.7 mmol/L (0.5-2.0) 12/06/20 18:47 Calcium 7.3 mg/dL (8.4-10.2) L 12/11/20 04:25 Iron 13 mcg/dL (30-160) L 12/06/20 18:47 TIBC 134 mcg/dL (228-428) L 12/06/20 18:47 % Saturation 10 % (15-50) L 12/06/20 18:47 Unsat Iron Binding 121 ug/dL 12/06/20 18:47 Ferritin 228 ng/mL (10-122) H 12/06/20 18:47 Total Bilirubin 0.4 mg/dL (0.0-1.0) 12/06/20 18:47 AST 9 U/L (5-31) D 12/06/20 18:47 ALT < 6 U/L (0-31) 12/06/20 18:47 Alkaline Phosphatase 131 U/L (39-117) H 12/06/20 18:47 Lactate Dehydrogenase 154 U/L (122-220) 12/08/20 14:18 C-Reactive Protein 5.30 mg/dL (< or = 0.50) H 12/09/20 10:33 Total Protein 6.8 g/dL (6.5-8.0) D 12/06/20 18:47 Albumin 2.1 g/dL (3.5-5.0) L 12/06/20 18:47 Vitamin B12 697 pg/mL (200-900) 12/07/20 19:53 Folate 9.1 ng/mL (> or = 4.0) 12/07/20 19:53 Urine Test NEGATIVE (NEGATIVE) 12/10/20 16:39 Vancomycin Trough 4.5 mcg/mL (10.0-20.0) L 12/08/20 14:18 Acetone, Qual Negative (Negative) 12/06/20 18:47 COVID-19 (CARO) Negative (Negative) 12/06/20 18:47 COVID-19 Clin Com See Note 12/06/20 18:47 Impressions Foot X-Ray 12/06/20 18:06 IMPRESSION: Significant soft tissue swelling. Chronic bony deformities to the midfoot suggesting underlying neuropathic osteoarthropathy postoperative changes with chronic periosteal changes to the second third and fourth metatarsals but I do not appreciate any additional acute bony destructive lesions. MRI of the foot may be helpful if there is persistent clinical concern. Foot MRI 12/08/20 13:37 IMPRESSION: Charcot arthropathy of the midfoot as described. Given the superficial soft tissue ulcerations and sinus tract extension to the neuropathic changes, superinfection and osteomyelitis is suspected. The extent of the osteomyelitis is uncertain as imaging characteristics of osteomyelitis and active neuropathic changes are similar. Duplex Scan Lower Extremity Artery 12/09/20 09:19 IMPRESSION: Right: Increased peak systolic velocities in the mid and distal SFA suggestive of atherosclerotic disease. No visible stenosis seen. The right MAYA is 1.1 Left: Increased peak systolic velocities and diffuse loss of diastolic flow reversal suggestive of moderate atherosclerotic disease. No visible stenosis seen. The left MAYA is 1.1. Abd US Ao-IVC-BPG 12/09/20 15:49 IMPRESSION: Right: Increased peak systolic velocities in the mid and distal SFA suggestive of atherosclerotic disease. No visible stenosis seen. The right MAYA is 1.1 Left: Increased peak systolic velocities and diffuse loss of diastolic flow reversal suggestive of moderate atherosclerotic disease. No visible stenosis seen. The left MAYA is 1.1. Labs on day of discharge: = Discharge Plan Discharge Patient Disposition: Home Health Service Discharge Diagnosis: Osteomyelitis, uncontrolled type 2 diabetes mellitus with foot ulcers Referrals: [facility] [Other] - 1 Day (HOME DELIVERY OF IV ANTIBIOTICS AND SUPPLIES. ) [facility] [Outside] - 1 Day (IV Antibiotics, Please call [phone] if you have not heard from a nurse by noon on 12/12/20. ) Yamilet Diallo MD [Physician] - 2 Weeks Abdon Beard MD [Primary Care Provider] - 1 Week Nomi Arias MD [Physician] - 2 Weeks Discharge Medications: New oxycodone 5 mg Tablet 5 mg PO Q6H PRN (Reason: Pain, Severe (Pain Scale 7-10)) Qty: 12 RF: 0 ertapenem [Invanz] 1 gram Recon Soln 1 g IV DAILY Qty: 36 RF: 0 ferrous sulfate 325 mg (65 mg iron) tablet 325 mg PO DAILY Qty: 30 RF: 0 Continued lisinopril 20 mg tablet 1 tab PO DAILY RF: 0 amlodipine 2.5 mg tablet 1 tab PO DAILY RF: 0 insulin aspart U-100 [Novolog Flexpen U-100 Insulin] 100 unit/mL (3 mL) insulin pen See Protocol unit subcut DIRECTED PRN (Reason: Hyperglycemia) RF: 0 Levemir FlexTouch U-100 Insuln 100 unit/mL (3 mL) insulin pen 43 unit subcut DAILY RF: 0 Jardiance 10 mg tablet 1 tab PO QAM RF: 0 sertraline 25 mg tablet 1 tab PO DAILY RF: 0 Discharge Orders: Discharge Order (Routine); Ordered 12/11/20 Ordered By: Paul Diane Diet: diabetic diet Activity on Discharge: As tolerated Stand Alone Forms: Patient Portal Discharge page Other Ambulatory Orders: Complete Blood Count Auto Diff (Routine) Timeframe: 1 Week Facility: [facility] - Location: Laboratory Ordered By: Paul Diane Comprehensive Met. Panel (Routine) Timeframe: 1 Week Facility: [facility] - Location: Laboratory Ordered By: Paul Diane C Reactive Protein (Routine) Timeframe: 1 Week Facility: [facility] - Location: Laboratory Ordered By: Paul Diane Erythrocyte Sedimentation Rate (Routine) Timeframe: 1 Week Facility: [facility] - Location: Laboratory Ordered By: Paul Diane Activity Restrictions/Additional Instructions: Wound care orders: Cleanse with soap and water, rinse thoroughly and pat dry. Apply EPC barrier cream around ulcers on right and left feet, then cut a 3 inch strip of silver alginate and tuck into anterior dorsal ulcer and leave tail out. Apply silver alginate to left and right ulcers and to left plantar ulcer, cover all with non woven gauze and roll gauze. No Kerlix gauze please. Care Plan Goals: cure of infection control of diabetes improvement in anemia Health Concerns: diabetic osteomyelitis uncontrolled diabetes severe anemia, refused transfusion Plan of Treatment: ertapenem 1g IV daily x 36 days via PICC line weekly labs beginning 12/13/20: CBCd, CMP, ESR, CRP follow up in 2 weeks with Vascular Surgery and Infectious Disease see your primary care doctor in 1 week take insulin as prescribed and avoid eating sugar or simple carbohydrates take ferrous sulfate 324 mg daily and eat iron-rich foods Assessment: see Discharge Summary Patient Instructions: Osteomyelitis (GEN), PICC (Peripherally Inserted Central Catheter) (DC)
[2020-12-11] MEDS: Ertapenem Sodium 1 GM in 0.9 % Sodium Chloride 50 ML IV (11:49)
[2020-12-11 12:00] VITALS: BP 169/87; PULSE 98; RESP 18; TEMP 36.1; O2SAT 97
[2020-12-11 12:08] LABS: Glucose, Whole Blood 59 mg/dL (60-115)
[2020-12-11 13:13] LABS: Glucose, Whole Blood 63 mg/dL (60-115)
[2020-12-11 15:42] VITALS: BP 166/92; PULSE 100; RESP 14; TEMP 36.4; O2SAT 96
[2020-12-11 16:22] LABS: Glucose, Whole Blood 87 mg/dL (60-115)
[2020-12-13 19:56] LABS: Haptoglobin 544 mg/dL (43-212)
[2020-12-14 07:52] LABS: Glucose, Whole Blood 60 mg/dL (60-115)
== END 2020-12-11 17:22 | disposition home health service (06) | DRG 603 ==
LOC: HO.ED 18:13 → HO.EDOVER 23:23 → HO.ICU 12-07 17:58 → HO.S3 12-08 21:21
PROVIDERS: Hospitalist; Admitting Provider Hospitalist; Emergency Provider Internal Medicine; PCP Internal Medicine; Visit Provider Family Medicine
DX: L03.115 Cellulitis of right lower limb (principal); L02.611 Cutaneous abscess of right foot; M86.9 Osteomyelitis, unspecified; N17.9 Acute kidney failure, unspecified; E11.621 Type 2 diabetes mellitus with foot ulcer; L97.519 Non-pressure chronic ulcer of other part of right foot with unspecified severity; H54.8 Legal blindness, as defined in USA; E11.319 Type 2 diabetes mellitus with unspecified diabetic retinopathy without macular edema; I10 Essential (primary) hypertension; D63.8 Anemia in other chronic diseases classified elsewhere; E61.1 Iron deficiency; E11.649 Type 2 diabetes mellitus with hypoglycemia without coma; E11.65 Type 2 diabetes mellitus with hyperglycemia; E11.69 Type 2 diabetes mellitus with other specified complication; Z20.822 Contact with and (suspected) exposure to COVID-19; Z79.4 Long term (current) use of insulin; Z79.899 Other long term (current) drug therapy
CPT/HCPCS: 36415; 36430; 36573; 73620; 73720; 80048; 80053; 80202; 81025; 82009; 82565; 82607; 82728; 82746; 82803; 82947; 83010; 83036; 83540; 83605; 83615; 85014; 85018; 85025; 85027; 85045; 85652; 86140; 87040; 87635; 93923; 93925; 96361; 96374; 96375; 99285; A9585; C1751; J0692; J1170; J1200; J1335; J2405; J2543; J2916; J3370

== ENCOUNTER 2020-12-23 13:33 | Outpatient (RCR) | payer OTHER, SELFPAY | END 2021-03-02 15:34 | disposition home or self-care (01) | LOC: HO.WCC 13:33 | PROVIDERS: PCP Internal Medicine; Visit Provider Surgery | DX: E10.621 Type 1 diabetes mellitus with foot ulcer (principal); L97.512 Non-pressure chronic ulcer of other part of right foot with fat layer exposed; L97.513 Non-pressure chronic ulcer of other part of right foot with necrosis of muscle; L97.522 Non-pressure chronic ulcer of other part of 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; E10.69 Type 1 diabetes mellitus with other specified complication; M86.072 Acute hematogenous osteomyelitis, left ankle and foot; Z79.2 Long term (current) use of antibiotics | CPT/HCPCS: 11042 ==

== ENCOUNTER → 2020-12-30 14:03 | Outpatient (BNVA) | payer OTHER, SELFPAY | PROVIDERS: PCP Internal Medicine; Visit Provider Surgery Vascular Surgery | DX: E11.621 Type 2 diabetes mellitus with foot ulcer (principal); L97.509 Non-pressure chronic ulcer of other part of unspecified foot with unspecified severity | CPT/HCPCS: 99212 ==

== ENCOUNTER 2021-01-07 20:45 | Emergency (ER) | payer OTHER, SELFPAY ==
--- NOTE | 2021-01-07 | ECG_ITS ---
Test Reason : CHEST PAIN Blood Pressure : / mmHG Vent. Rate : 112 BPM Atrial Rate : 112 BPM P-R Int : 142 ms QRS Dur : 126 ms QT Int : 384 ms P-R-T Axes : 048 034 042 degrees QTc Int : 524 ms Sinus tachycardia Right bundle branch block Abnormal ECG When compared with ECG of 08-NOV-2020 16:55, No significant change was found Heart rate has increased Referred By: Generic ED Physician Electronically Signed By:JEREMÍAS SANDOVAL MD
--- NOTE | ~2021-01-07 | XR_ITS ---
EXAMINATION: XR CHEST CLINICAL INFORMATION: Cough. Chest pain. COMPARISON: 11/08/2020 TECHNIQUE: 2 views of the chest were obtained. FINDINGS: The lungs are well expanded. Right basilar hazy opacity. Bronchial wall thickening. No pleural effusion or pneumothorax. The cardiomediastinal silhouette is within normal limits. There is a right-sided PICC line which curls in the region of the internal jugular vein, eventually extending inferiorly and terminating at the upper SVC. XR/XR chest 2V IMPRESSION: Bronchial wall thickening can be seen with a small airways process such as asthma or atypical/viral infection. Right basilar hazy opacity could represent superimposed atelectasis or pneumonia. Right PICC line curls into the internal jugular vein before extending to the superior SVC.
[2021-01-07 20:58] VITALS: BP 181/103; BP 187/98; PULSE 114; PULSE 117; RESP 18; TEMP 36.9; O2SAT 100; O2SAT 96; BMI 30.4
--- NOTE | 2021-01-07 21:11 | PC.NURSE ---
patient does not want labs to be drawn unless they can be all taken from her picc, due to her symptoms, I will let the provider decide if the picc could be the source of another infection and if labs should be drawn from there or not.
[2021-01-07 21:44] LABS: COVID-19 Test Negative (Negative); IDNOW Serial# 9DD0AD1C
[2021-01-07 22:24] VITALS: PULSE 118; RESP 18; O2SAT 99
--- NOTE | 2021-01-07 23:33 | ED.CHESTPAIN ---
HPI - Chest Pain General Chief Complaint: Chest Pain Stated Complaint: BODY ACHES AND HEADACHE Time Seen by Provider: 01/07/21 22:22 Source: patient Mode of arrival: EMS History of Present Illness HPI narrative: This is a 30-year-old female with history of asthma, hypertension, diabetes and currently being treated for osteomyelitis since October with ertapenem and then states that today she developed severe body aches, chest pain and headache approximately 2 hours after getting IV antibiotic infusion. She denies any development of rashes or itching and denies any facial/tongue/lip swelling or difficulty swallowing. She states she has never had an asthma exacerbation. Related Data Home Medications Medication Instructions Recorded Confirmed amlodipine 2.5 mg tablet 1 tab PO DAILY 12/07/20 12/07/20 empagliflozin 10 mg tablet 1 tab PO QAM 12/07/20 12/07/20 (Jardiance) insulin aspart U-100 100 unit/mL See Protocol SUBCUT DIRECTED PRN 12/07/20 12/07/20 (3 mL) subcutaneous pen (Novolog Flexpen U-100 Insulin aspart) lisinopril 20 mg tablet 1 tab PO DAILY 12/07/20 12/07/20 sertraline 25 mg tablet 1 tab PO DAILY 12/07/20 12/07/20 Previous Rx's Medication Instructions Recorded ertapenem 1 gram solution for 1 g IV DAILY #36 ea 12/11/20 injection (Invanz) ferrous sulfate 325 mg (65 mg 325 mg PO DAILY #30 tab 12/11/20 iron) tablet insulin detemir U-100 100 unit/mL 20 unit (0.2 mL) SUBCUT DAILY #0 ml 12/11/20 (3 mL) subcutaneous pen (Levemir FlexTouch U-100 Insulin) oxycodone 5 mg tablet 5 mg PO Q6H PRN #12 tab 12/11/20 furosemide 20 mg tablet (Lasix) 10 mg PO DAILY 7 Days #4 tab 01/08/21 Allergies Allergy/AdvReac Type Severity Reaction Status Date / Time morphine [MORPHINE] Allergy Severe ORAL Verified 01/07/21 20:57 SWELLING Review of Systems Review of Systems: Pertinent positives and negatives as stated in HPI 10 point review of systems is otherwise negative. PMFSH Past Medical History Source: nursing notes reviewed Medical History Asthma Back pain Blind right eye Bone infection Cellulitis and abscess of foot Depression with anxiety Diabetes Diabetic retinopathy DM foot ulcer Essential hypertension HTN (hypertension) Migraine Osteomyelitis test positive Severe anemia Type 2 diabetes mellitus with hyperglycemia, with long-term current use of insulin Surgical History History of transmetatarsal amputation of foot S/P transmetatarsal amputation of foot Family History Family History Mother Coronary artery disease Myocardial infarction Stroke Diabetes mellitus Father Myocardial infarction Social History Social History Household Members: Spouse Household Members Other:: Sister, [id number], nephew Housing: Apartment Do you presently have visiting nurse or other home services: Yes ([employer] services) Alcohol intake: never Patient Tobacco Use Status: Never used Tobacco e-Cigarette/Vaping Use: Never Used Second Hand Smoke Exposure: No Use of substances other than those prescribed or required for medical reasons: No Advance Directives: No Advance Directives Information Provided: No Patient : No service: No Current occupational status: disabled Gender identity: Female Physical Exam Vital Signs: Vital Signs: Last Vital Signs Temp 97.9 F 01/08/21 02:00 Pulse 116 H 01/08/21 02:07 Resp 16 01/08/21 02:00 BP 191/98 H 01/08/21 02:07 Pulse Ox 96 01/08/21 02:00 Body Mass Index 30.4 VITAL SIGNS: Reviewed. GENERAL: Well developed, well nourished, in no acute distress. HEAD: Normocephalic/atraumatic EYES: PERRLA, EOMI, blind in right eye EARS: Ext canals without abnormality, TMs non-bulging and non-erythematous NOSE: Nares patent bilateral OROPHARYNX: no oral lesions noted, posterior pharynx clear, no facial/lip/tongue swelling NECK: Supple, no adenopathy LUNGS: Normal breath sounds, no retractions, no wheezing, no tachypnea. SpO2<99> CARDIOVASCULAR: Regular rate and rhythm without noted murmurs ABDOMEN: Soft, non-tender, non-distended with bowel sounds. SKIN: Inspection of the skin reveals no rashes NEUROLOGIC: Alert and oriented x 4. Course Course Course Narrative: 30-year-old female with history and clinical presentation concerning for possible pneumonia, lower suspicion for asthma exacerbation, no suspicion for allergic reaction to the antibiotic but given patient's history will evaluate for PE and CHF. Review of all investigations demonstrate that Hematology is chronically stable, chemistries with mild hypokalemia which was repleted with 60 mEq of potassium chloride, MYNOR with corresponding elevated BNP. EKG without acute findings and although high sensitivity troponin is detectable patient is refusing any further lab draws at this time. Chest x-ray demonstrates that the PICC line after being noted to be curled within the IJ is noted to have the tip in the SVC. On gaining further collateral information from patient's family member who administers her antibiotics there have been no difficulties. Patient received albuterol nebulized treatment as well as 4 puffs with a vent L1 inhaler and states that she feels much improved. On further review of investigations evidence to suggest CHF with a corresponding MYNOR, however despite lengthy discussion with the patient regarding these findings and recommendations for admission she adamantly refuses and wishes to go home. She will be discharged on 20 mg of Lasix and instructions to follow-up with her primary care provider in the morning. In addition, patient was treated for her high blood pressure with Norvasc. All results and findings were discussed with patient and patient endorses that she does feel much better and states she has had complete resolution of her symptoms. MDM - Chest Pain Lab Data Result diagrams: 01/07/21 23:46 01/07/21 23:46 Labs: Lab Results 01/07/21 01/07/21 01/07/21 Range/Units 21:21 23:46 23:46 WBC 5.1 (4.8-10.8) X10*3/uL RBC 3.20 L (4.20-5.50) X10*6/uL Hgb 8.4 L (12.0-16.0) g/dl Hct 26.2 L (37.0-47.0) % MCV 81.9 (80.0-98.0) fL MCH 26.3 L (27.0-33.0) pg MCHC 32.1 (31.0-35.0) g/dl RDW 15.7 (11.0-16.0) % Plt Count 272 (160-400) X10*3/uL MPV 10.2 (9.4-12.3) fL Immature Gran % (Auto) 0.2 (0.0-0.4) % Neut % (Auto) 69.2 (45-73) % Lymph % (Auto) 18.3 L (20-40) % [place] % (Auto) 8.5 (2-11) % Eos % (Auto) 3.0 (0-4) % Baso % (Auto) 0.8 (0-2) % Lymph # (Auto) 0.9 L (1.2-4.9) X10*3/uL [place] # (Auto) 0.4 (0.1-1.2) X10*3/uL Eos # (Auto) 0.2 (0.0-0.4) X10*3/uL Baso # (Auto) 0.0 (0.0-0.2) X10*3/uL Abs Immat Gran (auto) 0.01 (0.00-0.03) X10*3/uL Absolute Neuts (auto) 3.5 (2.0-8.3) x10*3/uL Absolute Nucleated RBC 0.000 (0.0-0.012) X10*3/uL Nucleated RBC % (auto) 0.0 (0.0-0.2) /100WBC PT 13.5 H (9.9-13.0) SEC INR 1.2 H (0.9-1.1) Sodium (135-145) mmol/L Potassium (3.3-5.1) mmol/L Chloride (96-108) mmol/L Carbon Dioxide (22-29) mmol/L Anion Gap (12-20) BUN (9-16) mg/dL Creatinine (0.5-1.4) mg/dL Estim Creat Clear Calc Estimated GFR Random Glucose (60-115) mg/dL Lactic Acid (0.5-2.0) mmol/L Calcium (8.4-10.2) mg/dL Total Bilirubin (0.0-1.0) mg/dL AST (5-31) U/L ALT (0-31) U/L Alkaline Phosphatase (39-117) U/L Troponin I High Sens (<3.5-17.0) ng/L B-Natriuretic Peptide (<100) pg/mL Total Protein (6.5-8.0) g/dL Albumin (3.5-5.0) g/dL Lipase (8-78) U/L COVID-19 (CARO) Negative (Negative) COVID-19 Clin Com See Note 01/07/21 01/07/21 01/07/21 Range/Units 23:46 23:46 23:46 WBC (4.8-10.8) X10*3/uL RBC (4.20-5.50) X10*6/uL Hgb (12.0-16.0) g/dl Hct (37.0-47.0) % MCV (80.0-98.0) fL MCH (27.0-33.0) pg MCHC (31.0-35.0) g/dl RDW (11.0-16.0) % Plt Count (160-400) X10*3/uL MPV (9.4-12.3) fL Immature Gran % (Auto) (0.0-0.4) % Neut % (Auto) (45-73) % Lymph % (Auto) (20-40) % [place] % (Auto) (2-11) % Eos % (Auto) (0-4) % Baso % (Auto) (0-2) % Lymph # (Auto) (1.2-4.9) X10*3/uL [place] # (Auto) (0.1-1.2) X10*3/uL Eos # (Auto) (0.0-0.4) X10*3/uL Baso # (Auto) (0.0-0.2) X10*3/uL Abs Immat Gran (auto) (0.00-0.03) X10*3/uL Absolute Neuts (auto) (2.0-8.3) x10*3/uL Absolute Nucleated RBC (0.0-0.012) X10*3/uL Nucleated RBC % (auto) (0.0-0.2) /100WBC PT (9.9-13.0) SEC INR (0.9-1.1) Sodium 138 (135-145) mmol/L Potassium 3.0 L (3.3-5.1) mmol/L Chloride 110 H (96-108) mmol/L Carbon Dioxide 24 (22-29) mmol/L Anion Gap 7 L (12-20) BUN 18 H D (9-16) mg/dL Creatinine 1.50 H (0.5-1.4) mg/dL Estim Creat Clear Calc 59.3 Estimated GFR 40 Random Glucose 191 H (60-115) mg/dL Lactic Acid 0.8 (0.5-2.0) mmol/L Calcium 7.1 L (8.4-10.2) mg/dL Total Bilirubin 0.3 (0.0-1.0) mg/dL AST 13 D (5-31) U/L ALT 10 (0-31) U/L Alkaline Phosphatase 115 (39-117) U/L Troponin I High Sens 9.3 (<3.5-17.0) ng/L B-Natriuretic Peptide 955 H (<100) pg/mL Total Protein 5.7 L (6.5-8.0) g/dL Albumin 2.0 L (3.5-5.0) g/dL Lipase 19 (8-78) U/L COVID-19 (CARO) (Negative) COVID-19 Clin Com ECG Data ECG #1: Attestation: I personally reviewed and interpreted this ECG as follows: Prior ECG tracings: available for review (11/08/2020 no acute changes on comparison) Interpretation: Sinus tachycardia, HR-112, no STEMI, right bundle branch block, AR within normal limits Discharge Plan Discharge Clinical Impression: Hypertension, Atypical chest pain, Elevated brain natriuretic peptide (BNP) level, MYNOR (acute kidney injury), Asthma Patient Disposition: Home, Self-Care Instructions: Albuterol (By breathing), Heart Failure (ED), Asthma (ED), Acute Kidney Injury (DC), Low-Sodium Diet (ED), Hypertension (ED) Additional Instructions: 1. It is important that you resume all of your home medications as prescribed. 2. Call your primary care provider 1st thing in the morning discuss your evaluation here in the emergency room and establish a follow-up appointment for re-evaluation and further outpatient management. Please do not hesitate to return to the ER for acute worsening of symptoms. Prescriptions: New furosemide [Lasix] 20 mg tablet 10 mg PO DAILY 7 Days Qty: 4 RF: 0 No Action lisinopril 20 mg tablet 1 tab PO DAILY RF: 0 amlodipine 2.5 mg tablet 1 tab PO DAILY RF: 0 insulin aspart U-100 [Novolog Flexpen U-100 Insulin] 100 unit/mL (3 mL) insulin pen See Protocol unit subcut DIRECTED PRN (Reason: Hyperglycemia) RF: 0 Jardiance 10 mg tablet 1 tab PO QAM RF: 0 sertraline 25 mg tablet 1 tab PO DAILY RF: 0 oxycodone 5 mg Tablet 5 mg PO Q6H PRN (Reason: Pain, Severe (Pain Scale 7-10)) Qty: 12 RF: 0 ertapenem [Invanz] 1 gram Recon Soln 1 g IV DAILY Qty: 36 RF: 0 ferrous sulfate 325 mg (65 mg iron) tablet 325 mg PO DAILY Qty: 30 RF: 0 Levemir FlexTouch U-100 Insuln 100 unit/mL (3 mL) insulin pen 20 unit subcut DAILY Qty: 0 RF: 0 Referrals: [facility] [Primary Care Provider] - 2 days Stand Alone Forms: Against Medical Advice
[2021-01-07] MEDS: Albuterol Sulfate (0.083%) 2.5 MG/3 ML VIAL.NEB 5 MG INHALE (23:50)
[2021-01-07 23:52] LABS: Basophils Percent Auto 0.8 % (0-2); Eosinophils Absolute Auto 0.2 X10*3/uL (0.0-0.4); Hematocrit 26.2 % (37.0-47.0); Hemoglobin 8.4 g/dl (12.0-16.0); Imm Gran Abs Auto 0.01 X10*3/uL (0.00-0.03); Imm Gran Pct Auto 0.2 % (0.0-0.4); Lymphocytes Absolute Auto 0.9 X10*3/uL (1.2-4.9); Lymphocytes Percent Auto 18.3 % (20-40); Mean Corpuscular HGB Conc 32.1 g/dl (31.0-35.0); Mean Corpuscular Hemoglobin 26.3 pg (27.0-33.0); Mean Corpuscular Volume 81.9 fL (80.0-98.0); Mean Platelet Volume 10.2 fL (9.4-12.3); Monocytes Absolute Auto 0.4 X10*3/uL (0.1-1.2); Monocytes Percent Auto 8.5 % (2-11); Neutrophils Absolute Auto 3.5 x10*3/uL (2.0-8.3); Neutrophils Percent Auto 69.2 % (45-73); Platelet Count 272 X10*3/uL (160-400); Red Cell Distribution Width 15.7 % (11.0-16.0); White Blood Count 5.1 X10*3/uL (4.8-10.8)
[2021-01-07 23:53] VITALS: PULSE 188; O2SAT 96
[2021-01-07 23:53] LABS: MANUAL DIFF FLAG NO
--- NOTE | 2021-01-07 23:55 | PC.NURSE ---
PATIENT REFUSING IV ACCESS, STATING SHE WANTS BLOOD WORK ONLY TAKEN FROM A BUTTERFLY NEEDLE. STATING SHE ONLY WANTED AN IV FOR PAIN MEDICATION. PROVIDER PLACED PO MEDICATIONS FOR PATIENT. PATIENT INFORMED OF THIS AND REFUSING MEDICATIONS. AWAITING LAB RESULTS, PATIENT ALSO INFORMING THIS NURSE SHE WAS STAYING FOR BLOOD WORK AND THEN WANTS TO BE DISCHARGED HOME.
[2021-01-07 23:58] LABS: INTERNATIONAL NORM RATIO 1.2 (0.9-1.1); Prothrombin Time 13.5 SEC (9.9-13.0)
[2021-01-08 00:04] LABS: Lactic Acid 0.8 mmol/L (0.5-2.0)
[2021-01-08 00:10] LABS: Alanine Aminotransferase 10 U/L (0-31); Alkaline Phosphatase 115 U/L (39-117); Anion Gap 7 (12-20); Aspartate Amino Transferase 13 U/L (5-31); Bilirubin Total 0.3 mg/dL (0.0-1.0); Blood Urea Nitrogen 18 mg/dL (9-16); Calcium 7.1 mg/dL (8.4-10.2); Carbon Dioxide 24 mmol/L (22-29); Chloride 110 mmol/L (96-108); Creatinine Clr Calc Pharmacy 59.3; Estimated Glomerular Filt Rate 40; Glucose Random 191 mg/dL (60-115); Lipase 19 U/L (8-78); Sodium 138 mmol/L (135-145); Total Protein 5.7 g/dL (6.5-8.0)
[2021-01-08 00:13] LABS: Troponin-I High Sensitivity 9.3 ng/L (<3.5-17.0)
[2021-01-08 00:21] VITALS: BP 187/109; PULSE 118; RESP 18; O2SAT 96
[2021-01-08 01:06] LABS: B Type Natriuretic Peptide 955 pg/mL (<100)
[2021-01-08] MEDS: Albuterol Sulfate 90 MCG 8 GM INHALER 4 PUFF INHALE (01:36)
[2021-01-08 02:00] VITALS: BP 191/88; PULSE 116; RESP 16; TEMP 36.6; O2SAT 96
[2021-01-08] MEDS: Potassium Chloride ER 20 MEQ TAB.ER.PRT 60 MEQ PO (02:06)
[2021-01-08 02:07] VITALS: BP 191/98; PULSE 116
[2021-01-08] MEDS: amLODIPine Besylate 2.5 MG TABLET 7.5 MG PO (02:07)
== END 2021-01-08 03:15 | disposition home or self-care (01) ==
PROVIDERS: Emergency Provider Student in an Organized Health Care Education/Training Program
DX: R07.89 Other chest pain (principal); N17.9 Acute kidney failure, unspecified; R79.89 Other specified abnormal findings of blood chemistry; E87.6 Hypokalemia; I10 Essential (primary) hypertension; E11.9 Type 2 diabetes mellitus without complications; M86.9 Osteomyelitis, unspecified; J45.909 Unspecified asthma, uncomplicated; Z79.899 Other long term (current) drug therapy; Z20.822 Contact with and (suspected) exposure to COVID-19
CPT/HCPCS: 36415; 71046; 80053; 83605; 83690; 83880; 84484; 85025; 85610; 87040; 87635; 93005; 94640; 96360; 99284; 99285

== ENCOUNTER 2021-01-14 04:28 | Inpatient (IN) | payer OTHER, SELFPAY ==
[2021-01-14] VITALS (18 sets, daily range): BP systolic 107–179; BP diastolic 57–96; PULSE 63–153; RESP 16–41; TEMP 36.1–38.7; O2SAT 54–100; BMI 32.3
--- NOTE | 2021-01-14 | ECG_ITS ---
Test Reason : SOB Blood Pressure : / mmHG Vent. Rate : 136 BPM Atrial Rate : 136 BPM P-R Int : 112 ms QRS Dur : 118 ms QT Int : 306 ms P-R-T Axes : 069 033 033 degrees QTc Int : 460 ms Sinus tachycardia Right bundle branch block Abnormal ECG When compared with ECG of 07-JAN-2021 21:15, Heart rate has increased Referred By: Generic ED Physician Electronically Signed By:JEREMÍAS SANDOVAL MD
--- NOTE | ~2021-01-14 | IR_ITS ---
EXAMINATION: IR PICC LINE REPLACEMENT CLINICAL INFORMATION: Foot infection for long-term IV antibiotics. COMPARISON: None. TECHNIQUE: Procedure and risks and benefits including bleeding, infection and blood clot were discussed with the patient and informed consent was obtained. All elements of maximal sterile barrier technique followed including use of cap, mask, sterile gown, sterile gloves, a sterile full body drape and hand hygiene. Also followed skin preparation with 2% chlorhexidine for cutaneous antisepsis, and sterile ultrasound preparation with sterile gel and probe cover when applicable. The right upper arm and existing right upper extremity PICC line was prepped and draped in the usual sterile fashion. A 0.018 guidewire was advanced through the existing PICC line into the right atrium. The existing PICC line was removed. Over a peel-away sheath, a new 5 [place] single lumen PICC line was positioned. Catheter length is 38 cm. Catheter tip projects over the cavoatrial junction. Fluoroscopy time 0.4 minutes. DAP 87 cGy-cm2. One saved fluoroscopic image. FINDINGS: There is a right upper extremity PICC line with tip projecting over the cavoatrial junction. IR/IR cvc replace peripheral IMPRESSION: Right upper extremity PICC line exchange.
--- NOTE | ~2021-01-14 | XR_ITS ---
EXAMINATION: XR CHEST CLINICAL INFORMATION: Hypoxia. Evaluate pleural effusions. COMPARISON: Previous chest x-rays most recent 01/14/2021 TECHNIQUE: 2 views of the chest were obtained. FINDINGS: The cardiac and mediastinal contours are normal. The lung volumes are low. The lungs are clear. There are small bilateral pleural effusions, left greater than right. There is no pneumothorax. There is a right upper extremity PICC line with tip projecting over the cavoatrial junction. Bony structures are unremarkable. XR/XR chest 2V IMPRESSION: Small bilateral pleural effusions, left greater than right.
--- NOTE | ~2021-01-14 | CT_ITS ---
EXAMINATION: CT ANGIOGRAM OF THE CHEST WITH AND WITHOUT CONTRAST (CT PULMONARY ANGIOGRAM FOR PE) CLINICAL INFORMATION: Reason for Exam pleuritic chest pain with shortness of breath COMPARISON: Previous chest x-ray most recent from earlier the same day TECHNIQUE: Prior to contrast administration, noncontrast localization images were obtained. Subsequently, multidetector volumetric imaging was performed from the thoracic inlet to below the diaphragms following the administration of 65 mL Omnipaque 350 intravenous contrast. No contrast reaction reported Sagittal, coronal, and MIP oblique sagittal reformatted images were obtained on the CT workstation, uploaded to PACS, and reviewed. This CT examination was performed using dose optimization techniques as appropriate, variously including the following: *Automated exposure control *Adjustment of mA and/or kV according to patient size (this includes techniques or standardized protocols for targeted exams where dose is matched to indication/reason for exam; i.e. extremities or head) *Use of iterative reconstruction technique Total exam dose-length product 582 mGy-cm FINDINGS: QUALITY OF STUDY/CONTRAST BOLUS: Satisfactory. PULMONARY ARTERIES: No large or central pulmonary embolism. Evaluation of smaller segmental and subsegmental pulmonary arteries is limited due to artifact from respiratory motion. No pulmonary embolism is seen. THORACIC AORTA: No aneurysm or dissection. LUNG: There is minimal compressive atelectasis seen in both lower lobes adjacent to the pleural effusions. PLEURA: There are large bilateral pleural effusions. MEDIASTINUM: The heart is slightly enlarged. There is a small pericardial effusion.. No hilar or mediastinal lymphadenopathy. No evidence of septal bowing or right heart strain. CHEST WALL/AXILLA: No axillary or internal mammary lymphadenopathy. OSSEOUS STRUCTURES: No acute or suspicious osseous abnormality. UPPER ABDOMEN: The gallbladder has been removed.. No reflux of contrast into the hepatic veins to suggest elevated right heart pressures. CT/CT angio chest PE protocol IMPRESSION: Limited exam due to artifact from respiratory motion. No large or central pulmonary embolism is seen. Evaluation of smaller segmental and subsegmental pulmonary arteries is significantly limited due to respiratory motion artifact. Enlarged heart, small pericardial effusion and large bilateral pleural effusions. CHF should be considered. VTE: negative
--- NOTE | ~2021-01-14 | XR_ITS ---
EXAMINATION: XR CHEST CLINICAL INFORMATION: Post right thoracentesis COMPARISON: Previous chest x-ray from earlier the same day TECHNIQUE: Frontal view of the chest was obtained. FINDINGS: The cardiac silhouette is enlarged but stable. There is interval decrease in the right pleural effusion. The right lung is clear. There is increased attenuation of the left lung base likely due to large left pleural effusion. There is no pneumothorax. There is a right upper extremity PICC line. The distal end appears looped in the right internal jugular vein with tip projecting over the proximal SVC. XR/XR chest 1V IMPRESSION: No pneumothorax post right thoracentesis. Abnormally positioned right upper extremity PICC line.
--- NOTE | ~2021-01-14 | US_ITS ---
EXAMINATION: ULTRASOUND-GUIDED THORACENTESIS CLINICAL INFORMATION: Pleural effusion COMPARISON: Previous chest x-ray and chest CTA from earlier today TECHNIQUE: Procedure and risks and benefits including bleeding, infection and pneumothorax were discussed with the patient and informed consent was obtained. The patient was positioned in the left decubitus position. The right posterior lateral chest was prepped and draped in the usual sterile fashion. The skin and soft tissues were anesthetized with 1% lidocaine plain. Using ultrasound guidance catheter, access to the right pleural effusion was obtained. 1 L of clear yellow fluid was removed. Diagnostic specimen was sent. FINDINGS: There is a large right pleural effusion. US/US drain thoracentesis IMPRESSION: Ultrasound-guided right thoracentesis.
--- NOTE | ~2021-01-14 | US_ITS ---
EXAMINATION: US RETROPERITONEAL LIMITED (RENAL ONLY) CLINICAL INFORMATION: Renal artery stenosis. COMPARISON: None TECHNIQUE: Routine grayscale imaging of kidneys was obtained. Indication retroperitoneal Doppler study was performed. FINDINGS: RIGHT KIDNEY: 13.8 x 4.7 x 5.9 cm (SAG x AP x TRV). The kidney is normal in size, contour, and echogenicity. Renal cortical thickness is normal. No calculi or focal parenchymal lesions. No hydronephrosis. On renal Doppler exam the proximal renal artery measures 1 24 cm/second, mid segment measures 10 8 cm/second, distal segment measures 85.7 cm/second. The resistive index upper pole measures 0.75, midpole measures 0.75 and lower pole measure 0.67. The renal aortic ratio is less than 3.5. There is no suggestion for renal artery stenosis. LEFT KIDNEY: 13.7 x 5.9 x 5.8 cm (SAG x AP x TRV). The kidney is normal in size, contour, and echogenicity. Renal cortical thickness is normal. No calculi or focal parenchymal lesions. No hydronephrosis. On renal Doppler imaging the proximal renal artery velocity measures 69.8 cm/second, mid segment measures 1 29 cm/second and the distal segment measures 10 8 cm/second. Average resistive index is less than 0.79. Renal aortic ratios less than 3.5. There is no suggestion for renal artery stenosis. The mid abdominal aorta velocity measures 124 cm/second. US/US renal doppler IMPRESSION: Normal renal ultrasound. Normal renal Doppler ultrasound.
--- NOTE | ~2021-01-14 | XR_ITS ---
EXAMINATION: XR CHEST CLINICAL INFORMATION: Chest wall pain COMPARISON: 01/08/2021 TECHNIQUE: Frontal view of the chest was obtained. FINDINGS: Right PICC appears in similar configuration to prior, looping in the region of the lower internal jugular vein with tip in the region of the upper right brachiocephalic vein. Lung volumes are symmetric. Perihilar interstitial prominence is similar to prior. Mild right infrahilar haziness is similar to prior. No evidence of pneumothorax or definite pleural effusion. The cardiomediastinal silhouette is stable. No acute osseous findings are seen. XR/XR chest 1V IMPRESSION: Perihilar interstitial prominence, similar to prior and which could reflect airways disease or vascular congestion. Mild right infrahilar haziness is similar to prior.
--- NOTE | ~2021-01-14 | US_ITS ---
EXAMINATION: US RETROPERITONEAL LIMITED (RENAL ONLY) CLINICAL INFORMATION: Renal artery stenosis. COMPARISON: None TECHNIQUE: Routine grayscale imaging of kidneys was obtained. Indication retroperitoneal Doppler study was performed. FINDINGS: RIGHT KIDNEY: 13.8 x 4.7 x 5.9 cm (SAG x AP x TRV). The kidney is normal in size, contour, and echogenicity. Renal cortical thickness is normal. No calculi or focal parenchymal lesions. No hydronephrosis. On renal Doppler exam the proximal renal artery measures 1 24 cm/second, mid segment measures 10 8 cm/second, distal segment measures 85.7 cm/second. The resistive index upper pole measures 0.75, midpole measures 0.75 and lower pole measure 0.67. The renal aortic ratio is less than 3.5. There is no suggestion for renal artery stenosis. LEFT KIDNEY: 13.7 x 5.9 x 5.8 cm (SAG x AP x TRV). The kidney is normal in size, contour, and echogenicity. Renal cortical thickness is normal. No calculi or focal parenchymal lesions. No hydronephrosis. On renal Doppler imaging the proximal renal artery velocity measures 69.8 cm/second, mid segment measures 1 29 cm/second and the distal segment measures 10 8 cm/second. Average resistive index is less than 0.79. Renal aortic ratios less than 3.5. There is no suggestion for renal artery stenosis. The mid abdominal aorta velocity measures 124 cm/second. US/US renal BI IMPRESSION: Normal renal ultrasound. Normal renal Doppler ultrasound.
[2021-01-14 05:56] LABS: MANUAL DIFF FLAG NO
--- NOTE | 2021-01-14 05:57 | PC.NURSE ---
Shereen states she hurts everywhere. She begins by saying she has head pain, back pain, B/L LE pain, chest pain, abdominal pain, etc. Every part of her body that I inquired about, she admitted to having pain there. It is difficult to assess/evaluate her because rather than answer the questions I ask her about what brought her to to the ER and whether or not she has followed up after recent ER visits she changes the topic to how cold she is and how thirsty she is (multiple blankets and water have been provided). IV access/labs obtained. Pt is resting in bed awaiting initial MD medina.
[2021-01-14 05:58] LABS: Basophils Percent Auto 0.4 % (0-2); Eosinophils Percent Auto 0.5 % (0-4); Hematocrit 28.8 % (37.0-47.0); Hemoglobin 9.2 g/dl (12.0-16.0); Imm Gran Abs Auto 0.03 X10*3/uL (0.00-0.03); Imm Gran Pct Auto 0.4 % (0.0-0.4); Lymphocytes Absolute Auto 0.4 X10*3/uL (1.2-4.9); Mean Corpuscular HGB Conc 31.9 g/dl (31.0-35.0); Mean Corpuscular Hemoglobin 26.4 pg (27.0-33.0); Mean Corpuscular Volume 82.5 fL (80.0-98.0); Monocytes Absolute Auto 0.5 X10*3/uL (0.1-1.2); Monocytes Percent Auto 6.7 % (2-11); Platelet Count 301 X10*3/uL (160-400); Red Blood Count 3.49 X10*6/uL (4.20-5.50); Red Cell Distribution Width 15.5 % (11.0-16.0)
[2021-01-14 06:19] LABS: Troponin-I High Sensitivity 8.4 ng/L (<3.5-17.0)
--- NOTE | 2021-01-14 06:20 | ED.GENADULT ---
HPI - General Adult General Chief complaint: Weakness <Kareem Kilgore MD - Last Filed: 01/14/21 08:23> Stated complaint: diff breathing <Kareem Kilgore MD - Last Filed: 01/14/21 08:23> Time Seen by Provider: 01/14/21 06:20 <Kareem Kilgore MD - Last Filed: 01/14/21 08:23> Source: patient <Kareem Kilgore MD - Last Filed: 01/14/21 08:23> Mode of arrival: EMS <Kareem Kilgore MD - Last Filed: 01/14/21 08:23> Limitations: no limitations <Kareem Kilgore MD - Last Filed: 01/14/21 08:23> History of Present Illness HPI narrative: Patient comes in with chest and head pain and shortness of breath. Patient was to be admitted 5 days ago for renal failure and shortness of breath but the patient signed out AMA. <Kareem Kilgore MD - Last Filed: 01/14/21 08:23> Onset (ago): day(s) <Kareem Kilgore MD - Last Filed: 01/14/21 08:23> Location: head and chest <Kareem Kilgore MD - Last Filed: 01/14/21 08:23> Severity: severe <Kareem Kilgore MD - Last Filed: 01/14/21 08:23> Pain Consistency: constant <Kareem Kilgore MD - Last Filed: 01/14/21 08:23> Exacerbating factors: none <Kareem Kilgore MD - Last Filed: 01/14/21 08:23> Associated symptoms: chest pain, cough, fever/chills and headaches <aKreem Kilgore MD - Last Filed: 01/14/21 08:23> Related Data Home medications: Home Medications Medication Instructions Recorded Confirmed amlodipine 2.5 mg tablet 1 tab PO DAILY 12/07/20 01/14/21 empagliflozin 10 mg tablet 1 tab PO QAM 12/07/20 01/14/21 (Jardiance) insulin aspart U-100 100 unit/mL See Protocol SUBCUT DIRECTED PRN 12/07/20 01/14/21 (3 mL) subcutaneous pen (Novolog Flexpen U-100 Insulin aspart) lisinopril 20 mg tablet 1 tab PO DAILY 12/07/20 01/14/21 sertraline 25 mg tablet 1 tab PO DAILY 12/07/20 01/14/21 Previous Rx's Medication Instructions Recorded ertapenem 1 gram solution for 1 g IV DAILY #36 ea 12/11/20 injection (Invanz) ferrous sulfate 325 mg (65 mg 325 mg PO DAILY #30 tab 12/11/20 iron) tablet insulin detemir U-100 100 unit/mL 20 unit (0.2 mL) SUBCUT DAILY #0 ml 12/11/20 (3 mL) subcutaneous pen (Levemir FlexTouch U-100 Insulin) <Kareem Kilgore MD - Last Filed: 01/14/21 08:23> Allergies/adverse reactions: Allergies Allergy/AdvReac Type Severity Reaction Status Date / Time morphine [MORPHINE] Allergy Intermediate Itching Verified 01/14/21 07:31 <Kareem Kilgore MD - Last Filed: 01/14/21 08:23> Review of Systems Constitutional: Constitutional: Reports no additional constitutional complaints <Kareem Kilgore MD - Last Filed: 01/14/21 08:23> Eyes: Eyes: Reports no additional eye complaints <Kareem Kilgore MD - Last Filed: 01/14/21 08:23> ENT: Denies dizziness <Kareem Kilgore MD - Last Filed: 01/14/21 08:23> Cardiovascular: Cardiovascular: Reports no additional cardiovascular complaints <Kareem Kilgore MD - Last Filed: 01/14/21 08:23> Respiratory: Respiratory: Reports as per HPI <Kareem Kilgore MD - Last Filed: 01/14/21 08:23> Gastrointestinal: Gastrointestinal: Reports no additional gastrointestinal complaints <Kareem Kilgore MD - Last Filed: 01/14/21 08:23> Genitourinary: Genitourinary: Reports no additional female genitourinary complaints <Kareem Kilgore MD - Last Filed: 01/14/21 08:23> Musculoskeletal: Musculoskeletal: Reports no additional musculoskeletal complaints <Kareem Kilgore MD - Last Filed: 01/14/21 08:23> Integumentary/Breasts: Skin/Breast: Denies rash <Kareem Kilgore MD - Last Filed: 01/14/21 08:23> Neurologic: Reports system reviewed and no additional complaints, except as documented, Denies dizziness and Denies Sensory deficit (Neuro) <Kareem Kilgore MD - Last Filed: 01/14/21 08:23> Psychiatric: Psychiatric: Denies anxiety <Kareem Kilgore MD - Last Filed: 01/14/21 08:23> [facility] Past Medical History Medical History: Medical History Asthma Back pain Blind right eye Bone infection Cellulitis and abscess of foot Depression with anxiety Diabetes Diabetic retinopathy DM foot ulcer Essential hypertension HTN (hypertension) Migraine Osteomyelitis test positive Severe anemia Type 2 diabetes mellitus with hyperglycemia, with long-term current use of insulin <Kareem Kilgore MD - Last Filed: 01/14/21 08:23> Surgical History: Surgical History History of transmetatarsal amputation of foot S/P transmetatarsal amputation of foot <Kareem Kilgore MD - Last Filed: 01/14/21 08:23> Family History Family History: Family History Mother Coronary artery disease Myocardial infarction Stroke Diabetes mellitus Father Myocardial infarction <Kareem Kilgore MD - Last Filed: 01/14/21 08:23> Social History Social History: Social History Household Members: Spouse Household Members Other:: Sister, Yiomuso-os-Zxn, nephew Housing: Apartment Do you presently have visiting nurse or other home services: Yes ([facility] services) Alcohol intake: never Patient Tobacco Use Status: Never used Tobacco e-Cigarette/Vaping Use: Never Used Second Hand Smoke Exposure: No Advance Directives: No Advance Directives Information Provided: No Patient : No service: No Current occupational status: disabled Gender identity: Female <Kareem Kilgore MD - Last Filed: 01/14/21 08:23> Physical Exam Vital Signs: Vital Signs: Last Vital Signs Temp 101.7 F H 01/14/21 12:45 Pulse 114 H 01/14/21 13:00 Resp 20 01/14/21 13:00 BP 155/91 H 01/14/21 13:00 Pulse Ox 97 01/14/21 13:00 Oxygen Flow Rate 2 01/14/21 04:33 Body Mass Index 32.3 <Kareem Kilgore MD - Last Filed: 01/14/21 08:23> Vital Signs: Last Vital Signs Temp 101.7 F H 01/14/21 12:45 Pulse 114 H 01/14/21 13:00 Resp 20 01/14/21 13:00 BP 155/91 H 01/14/21 13:00 Pulse Ox 97 01/14/21 13:00 Oxygen Flow Rate 2 01/14/21 04:33 Body Mass Index 32.3 <Daiana Brown DO - Last Filed: 01/14/21 14:40> Const: Other: female couhging, in pain, short of breath <Kareem Kilgore MD - Last Filed: 01/14/21 08:23> Nutritional Appearance: average body habitus <Kareem Kilgore MD - Last Filed: 01/14/21 08:23> Orientation/consciousness: oriented to person and patient oriented x3 <Kareem Kilgore MD - Last Filed: 01/14/21 08:23> Limitations: no limitations <Kareem Kilgore MD - Last Filed: 01/14/21 08:23> HENMT: Head: Yes normal to inspection <aKreem Kilgore MD - Last Filed: 01/14/21 08:23> Ears: external ears normal <Kareem Kilgore MD - Last Filed: 01/14/21 08:23> General nose exam: Normal external nose present <Kareem Kilgore MD - Last Filed: 01/14/21 08:23> Mouth: Normal oral and palatal mucosa present and oropharynx normal <Kareem Kilgore MD - Last Filed: 01/14/21 08:23> Throat: Yes posterior oropharynx normal <Kareem Kilgore MD - Last Filed: 01/14/21 08:23> Eyes: General: appearance normal, both eyes and all related structures <Kareem Kilgore MD - Last Filed: 01/14/21 08:23> Neck: Other: supple <Kareem Kilgore MD - Last Filed: 01/14/21 08:23> Neck: Yes normal visual inspection <Kareem Kilgore MD - Last Filed: 01/14/21 08:23> Chest: Chest palpation & inspection: normal inspection of the chest <Kareem Kilgore MD - Last Filed: 01/14/21 08:23> Resp: Other: tachypnic <Kareem Kilgore MD - Last Filed: 01/14/21 08:23> Auscultation: clear to auscultation bilaterally <Kareem Kilgore MD - Last Filed: 01/14/21 08:23> Cardio: Jugular venous distension: no JVD <Kareem Kilgore MD - Last Filed: 01/14/21 08:23> Rate: regular rate <Kareem Kilgore MD - Last Filed: 01/14/21 08:23> Rhythm: regular rhythm <Kareem Kilgore MD - Last Filed: 01/14/21 08:23> Heart sounds: S1 normal heart sound present and S2 normal heart sound present <Kareem Kilgore MD - Last Filed: 01/14/21 08:23> GI: Inspection: Yes normal to inspection <Kareem Kilgore MD - Last Filed: 01/14/21 08:23> Palpation (GI): Soft to palpation, nontender and No hepatosplenomegaly present <Kareem Kilgore MD - Last Filed: 01/14/21 08:23> Auscultation: normal bowel sounds <Kareem Kilgore MD - Last Filed: 01/14/21 08:23> : General: Yes no CVA tenderness <Kareem Kilgore MD - Last Filed: 01/14/21 08:23> Back/Spine/Pelvis: Back: no CVA tenderness <Kareem Kilgore MD - Last Filed: 01/14/21 08:23> Skin: General skin exam: no rashes or lesions noted <Kareem Kilgore MD - Last Filed: 01/14/21 08:23> Neuro: General: oriented to person and patient oriented x3 <Kareem Kilgore MD - Last Filed: 01/14/21 08:23> Cranial nerves: Yes CN's II-XII intact bilaterally <Kareem Kilgore MD - Last Filed: 01/14/21 08:23> Motor exam (neuro): 5/5 motor strength present throughout <Kareem Kilgore MD - Last Filed: 01/14/21 08:23> Sensory Exam: No Sensory deficit (Neuro) <Kareem Kilgore MD - Last Filed: 01/14/21 08:23> Extrem: Other: right foot amputation <Kareem Kilgore MD - Last Filed: 01/14/21 08:23> Psych: Appearance: grossly normal <Kareem Kilgore MD - Last Filed: 01/14/21 08:23> Course Course Course Narrative: received sign out around 830 - pending repeat labs and CTA per sign out some MYNOR hydrated Cr bumped VQ scan ordered, she is not compliant aggressive at times and agitated with staff, 945am spiked a temp cultures, lactic acid and tylenol/meropenem ordered patient at time states she is leaving then agrees to stay, refusing to get labs allowed me to place IV US 20G in L AC - CTA ordered will hydrate her in the meantime reviewed GFR with CT should be okay for procedure no saddle seen but two large effusions noted all fluids held had been given 1.5L per RN from previous shift will attempt NIPPV and diuretics sepsis bolus exclusion note in error will place on bipap for resp distress as well as IV lasix BNP was 955 on recent visit 01/07 c/o nausea taken off bipap then vomited maintaining sats > 92% on 4L NC - will diurese and observe will consult IR for possible drainage of large effusions given her resp status and inability to tolerate bipap patient is much improved sitting upright will place edwards ECHO ordered, notified Cardiology - overall the patient does look better IR aware and will attempt to get her on schedule. coags pending plts stable <Daiana Brown DO - Last Filed: 01/14/21 14:40> Reevaluation(s) Reevaluation #1: patient with pleuritic chest pain and cough with hypoxia and negative chest xray. concerned about PE awaiting CT of chest <Kareem Kilgore MD - Last Filed: 01/14/21 08:23> Time: 08:23 <Kareem Kilgore MD - Last Filed: 01/14/21 08:23> Medical Decision Making Lab Data Result diagrams: : 01/14/21 05:50 01/14/21 09:35 <Kareem Kilgore MD - Last Filed: 01/14/21 08:23> Labs: Lab Results 01/14/21 01/14/21 01/14/21 Range/Units 05:50 05:50 05:50 WBC 8.0 (4.8-10.8) X10*3/uL RBC 3.49 L (4.20-5.50) X10*6/uL Hgb 9.2 L (12.0-16.0) g/dl Hct 28.8 L (37.0-47.0) % MCV 82.5 (80.0-98.0) fL MCH 26.4 L (27.0-33.0) pg MCHC 31.9 (31.0-35.0) g/dl RDW 15.5 (11.0-16.0) % Plt Count 301 (160-400) X10*3/uL MPV 11.0 (9.4-12.3) fL Immature Gran % (Auto) 0.4 (0.0-0.4) % Neut % (Auto) 87.0 H (45-73) % Lymph % (Auto) 5.0 L (20-40) % [place] % (Auto) 6.7 (2-11) % Eos % (Auto) 0.5 (0-4) % Baso % (Auto) 0.4 (0-2) % Lymph # (Auto) 0.4 L (1.2-4.9) X10*3/uL [place] # (Auto) 0.5 (0.1-1.2) X10*3/uL Eos # (Auto) 0.0 (0.0-0.4) X10*3/uL Baso # (Auto) 0.0 (0.0-0.2) X10*3/uL Abs Immat Gran (auto) 0.03 (0.00-0.03) X10*3/uL Absolute Neuts (auto) 7.0 (2.0-8.3) x10*3/uL Absolute Nucleated RBC 0.000 (0.0-0.012) X10*3/uL Nucleated RBC % (auto) 0.0 (0.0-0.2) /100WBC PT (9.9-13.0) SEC INR (0.9-1.1) APTT (24.1-38.0) SEC Sodium (135-145) mmol/L Potassium (3.3-5.1) mmol/L Chloride (96-108) mmol/L Carbon Dioxide (22-29) mmol/L Anion Gap (12-20) BUN (9-16) mg/dL Creatinine (0.5-1.4) mg/dL Estim Creat Clear Calc Estimated GFR POC Glucose (60-115) mg/dL Random Glucose (60-115) mg/dL Lactic Acid (0.5-2.0) mmol/L Calcium (8.4-10.2) mg/dL Total Bilirubin (0.0-1.0) mg/dL AST (5-31) U/L ALT (0-31) U/L Alkaline Phosphatase (39-117) U/L Troponin I High Sens 8.4 (<3.5-17.0) ng/L B-Natriuretic Peptide (<100) pg/mL Total Protein (6.5-8.0) g/dL Albumin (3.5-5.0) g/dL Beta HCG, Quant mIU/mL Urine Color Urine Appearance Urine pH (5.0-8.0) Ur Specific [place] (1.005-1.025) Urine Protein (NEG-TRACE) MG/DL Urine Glucose (UA) (NEG) MG/DL Urine Ketones (NEG) MG/DL Urine Blood (NEG) Urine Nitrite (NEG) Ur Leukocyte Esterase (NEG) Urine RBC (0) /HPF Urine WBC (0-4) /HPF Ur Squamous Epith Cells /LPF Urine Bacteria /LPF COVID-19 (CARO) Negative (Negative) COVID-19 Clin Com See Note 01/14/21 01/14/21 01/14/21 Range/Units 09:35 10:27 11:47 WBC (4.8-10.8) X10*3/uL RBC (4.20-5.50) X10*6/uL Hgb (12.0-16.0) g/dl Hct (37.0-47.0) % MCV (80.0-98.0) fL MCH (27.0-33.0) pg MCHC (31.0-35.0) g/dl RDW (11.0-16.0) % Plt Count (160-400) X10*3/uL MPV (9.4-12.3) fL Immature Gran % (Auto) (0.0-0.4) % Neut % (Auto) (45-73) % Lymph % (Auto) (20-40) % [place] % (Auto) (2-11) % Eos % (Auto) (0-4) % Baso % (Auto) (0-2) % Lymph # (Auto) (1.2-4.9) X10*3/uL [place] # (Auto) (0.1-1.2) X10*3/uL Eos # (Auto) (0.0-0.4) X10*3/uL Baso # (Auto) (0.0-0.2) X10*3/uL Abs Immat Gran (auto) (0.00-0.03) X10*3/uL Absolute Neuts (auto) (2.0-8.3) x10*3/uL Absolute Nucleated RBC (0.0-0.012) X10*3/uL Nucleated RBC % (auto) (0.0-0.2) /100WBC PT 15.3 H (9.9-13.0) SEC INR 1.3 H (0.9-1.1) APTT 24.5 (24.1-38.0) SEC Sodium 136 (135-145) mmol/L Potassium 4.0 D (3.3-5.1) mmol/L Chloride 107 (96-108) mmol/L Carbon Dioxide 21 L (22-29) mmol/L Anion Gap 12 (12-20) BUN 21 H (9-16) mg/dL Creatinine 1.43 H (0.5-1.4) mg/dL Estim Creat Clear Calc 64.1 Estimated GFR 43 POC Glucose (60-115) mg/dL Random Glucose 230 H (60-115) mg/dL Lactic Acid 2.7 H* (0.5-2.0) mmol/L Calcium 7.1 L (8.4-10.2) mg/dL Total Bilirubin 0.7 (0.0-1.0) mg/dL AST 14 (5-31) U/L ALT 12 (0-31) U/L Alkaline Phosphatase 116 (39-117) U/L Troponin I High Sens (<3.5-17.0) ng/L B-Natriuretic Peptide (<100) pg/mL Total Protein 5.9 L (6.5-8.0) g/dL Albumin 2.2 L (3.5-5.0) g/dL Beta HCG, Quant < 2 mIU/mL Urine Color Urine Appearance Urine pH (5.0-8.0) Ur Specific [place] (1.005-1.025) Urine Protein (NEG-TRACE) MG/DL Urine Glucose (UA) (NEG) MG/DL Urine Ketones (NEG) MG/DL Urine Blood (NEG) Urine Nitrite (NEG) Ur Leukocyte Esterase (NEG) Urine RBC (0) /HPF Urine WBC (0-4) /HPF Ur Squamous Epith Cells /LPF Urine Bacteria /LPF COVID-19 (CARO) (Negative) COVID-19 Clin Com 01/14/21 01/14/21 01/14/21 Range/Units 11:47 12:24 12:49 WBC (4.8-10.8) X10*3/uL RBC (4.20-5.50) X10*6/uL Hgb (12.0-16.0) g/dl Hct (37.0-47.0) % MCV (80.0-98.0) fL MCH (27.0-33.0) pg MCHC (31.0-35.0) g/dl RDW (11.0-16.0) % Plt Count (160-400) X10*3/uL MPV (9.4-12.3) fL Immature Gran % (Auto) (0.0-0.4) % Neut % (Auto) (45-73) % Lymph % (Auto) (20-40) % [place] % (Auto) (2-11) % Eos % (Auto) (0-4) % Baso % (Auto) (0-2) % Lymph # (Auto) (1.2-4.9) X10*3/uL [place] # (Auto) (0.1-1.2) X10*3/uL Eos # (Auto) (0.0-0.4) X10*3/uL Baso # (Auto) (0.0-0.2) X10*3/uL Abs Immat Gran (auto) (0.00-0.03) X10*3/uL Absolute Neuts (auto) (2.0-8.3) x10*3/uL Absolute Nucleated RBC (0.0-0.012) X10*3/uL Nucleated RBC % (auto) (0.0-0.2) /100WBC PT (9.9-13.0) SEC INR (0.9-1.1) APTT (24.1-38.0) SEC Sodium (135-145) mmol/L Potassium (3.3-5.1) mmol/L Chloride (96-108) mmol/L Carbon Dioxide (22-29) mmol/L Anion Gap (12-20) BUN (9-16) mg/dL Creatinine (0.5-1.4) mg/dL Estim Creat Clear Calc Estimated GFR POC Glucose 224 H (60-115) mg/dL Random Glucose (60-115) mg/dL Lactic Acid (0.5-2.0) mmol/L Calcium (8.4-10.2) mg/dL Total Bilirubin (0.0-1.0) mg/dL AST (5-31) U/L ALT (0-31) U/L Alkaline Phosphatase (39-117) U/L Troponin I High Sens (<3.5-17.0) ng/L B-Natriuretic Peptide 1684 H (<100) pg/mL Total Protein (6.5-8.0) g/dL Albumin (3.5-5.0) g/dL Beta HCG, Quant mIU/mL Urine Color YELLOW Urine Appearance CLEAR Urine pH 7.5 (5.0-8.0) Ur Specific [place] 1.020 (1.005-1.025) Urine Protein 3+ H (NEG-TRACE) MG/DL Urine Glucose (UA) 500 H (NEG) MG/DL Urine Ketones NEG (NEG) MG/DL Urine Blood 2+ H (NEG) Urine Nitrite NEG (NEG) Ur Leukocyte Esterase NEG (NEG) Urine RBC 5-9 H (0) /HPF Urine WBC 1-4 (0-4) /HPF Ur Squamous Epith Cells TRACE /LPF Urine Bacteria 2+ /LPF COVID-19 (CARO) (Negative) COVID-19 Clin Com <Kareem Kilgore MD - Last Filed: 01/14/21 08:23> Lab Results 01/14/21 01/14/21 01/14/21 Range/Units 05:50 05:50 05:50 WBC 8.0 (4.8-10.8) X10*3/uL RBC 3.49 L (4.20-5.50) X10*6/uL Hgb 9.2 L (12.0-16.0) g/dl Hct 28.8 L (37.0-47.0) % MCV 82.5 (80.0-98.0) fL MCH 26.4 L (27.0-33.0) pg MCHC 31.9 (31.0-35.0) g/dl RDW 15.5 (11.0-16.0) % Plt Count 301 (160-400) X10*3/uL MPV 11.0 (9.4-12.3) fL Immature Gran % (Auto) 0.4 (0.0-0.4) % Neut % (Auto) 87.0 H (45-73) % Lymph % (Auto) 5.0 L (20-40) % [place] % (Auto) 6.7 (2-11) % Eos % (Auto) 0.5 (0-4) % Baso % (Auto) 0.4 (0-2) % Lymph # (Auto) 0.4 L (1.2-4.9) X10*3/uL [place] # (Auto) 0.5 (0.1-1.2) X10*3/uL Eos # (Auto) 0.0 (0.0-0.4) X10*3/uL Baso # (Auto) 0.0 (0.0-0.2) X10*3/uL Abs Immat Gran (auto) 0.03 (0.00-0.03) X10*3/uL Absolute Neuts (auto) 7.0 (2.0-8.3) x10*3/uL Absolute Nucleated RBC 0.000 (0.0-0.012) X10*3/uL Nucleated RBC % (auto) 0.0 (0.0-0.2) /100WBC PT (9.9-13.0) SEC INR (0.9-1.1) APTT (24.1-38.0) SEC Sodium (135-145) mmol/L Potassium (3.3-5.1) mmol/L Chloride (96-108) mmol/L Carbon Dioxide (22-29) mmol/L Anion Gap (12-20) BUN (9-16) mg/dL Creatinine (0.5-1.4) mg/dL Estim Creat Clear Calc Estimated GFR POC Glucose (60-115) mg/dL Random Glucose (60-115) mg/dL Lactic Acid (0.5-2.0) mmol/L Calcium (8.4-10.2) mg/dL Total Bilirubin (0.0-1.0) mg/dL AST (5-31) U/L ALT (0-31) U/L Alkaline Phosphatase (39-117) U/L Troponin I High Sens 8.4 (<3.5-17.0) ng/L B-Natriuretic Peptide (<100) pg/mL Total Protein (6.5-8.0) g/dL Albumin (3.5-5.0) g/dL Beta HCG, Quant mIU/mL Urine Color Urine Appearance Urine pH (5.0-8.0) Ur Specific [place] (1.005-1.025) Urine Protein (NEG-TRACE) MG/DL Urine Glucose (UA) (NEG) MG/DL Urine Ketones (NEG) MG/DL Urine Blood (NEG) Urine Nitrite (NEG) Ur Leukocyte Esterase (NEG) Urine RBC (0) /HPF Urine WBC (0-4) /HPF Ur Squamous Epith Cells /LPF Urine Bacteria /LPF COVID-19 (CARO) Negative (Negative) COVID-19 Clin Com See Note 01/14/21 01/14/21 01/14/21 Range/Units 09:35 10:27 11:47 WBC (4.8-10.8) X10*3/uL RBC (4.20-5.50) X10*6/uL Hgb (12.0-16.0) g/dl Hct (37.0-47.0) % MCV (80.0-98.0) fL MCH (27.0-33.0) pg MCHC (31.0-35.0) g/dl RDW (11.0-16.0) % Plt Count (160-400) X10*3/uL MPV (9.4-12.3) fL Immature Gran % (Auto) (0.0-0.4) % Neut % (Auto) (45-73) % Lymph % (Auto) (20-40) % [place] % (Auto) (2-11) % Eos % (Auto) (0-4) % Baso % (Auto) (0-2) % Lymph # (Auto) (1.2-4.9) X10*3/uL [place] # (Auto) (0.1-1.2) X10*3/uL Eos # (Auto) (0.0-0.4) X10*3/uL Baso # (Auto) (0.0-0.2) X10*3/uL Abs Immat Gran (auto) (0.00-0.03) X10*3/uL Absolute Neuts (auto) (2.0-8.3) x10*3/uL Absolute Nucleated RBC (0.0-0.012) X10*3/uL Nucleated RBC % (auto) (0.0-0.2) /100WBC PT 15.3 H (9.9-13.0) SEC INR 1.3 H (0.9-1.1) APTT 24.5 (24.1-38.0) SEC Sodium 136 (135-145) mmol/L Potassium 4.0 D (3.3-5.1) mmol/L Chloride 107 (96-108) mmol/L Carbon Dioxide 21 L (22-29) mmol/L Anion Gap 12 (12-20) BUN 21 H (9-16) mg/dL Creatinine 1.43 H (0.5-1.4) mg/dL Estim Creat Clear Calc 64.1 Estimated GFR 43 POC Glucose (60-115) mg/dL Random Glucose 230 H (60-115) mg/dL Lactic Acid 2.7 H* (0.5-2.0) mmol/L Calcium 7.1 L (8.4-10.2) mg/dL Total Bilirubin 0.7 (0.0-1.0) mg/dL AST 14 (5-31) U/L ALT 12 (0-31) U/L Alkaline Phosphatase 116 (39-117) U/L Troponin I High Sens (<3.5-17.0) ng/L B-Natriuretic Peptide (<100) pg/mL Total Protein 5.9 L (6.5-8.0) g/dL Albumin 2.2 L (3.5-5.0) g/dL Beta HCG, Quant < 2 mIU/mL Urine Color Urine Appearance Urine pH (5.0-8.0) Ur Specific [place] (1.005-1.025) Urine Protein (NEG-TRACE) MG/DL Urine Glucose (UA) (NEG) MG/DL Urine Ketones (NEG) MG/DL Urine Blood (NEG) Urine Nitrite (NEG) Ur Leukocyte Esterase (NEG) Urine RBC (0) /HPF Urine WBC (0-4) /HPF Ur Squamous Epith Cells /LPF Urine Bacteria /LPF COVID-19 (CARO) (Negative) COVID-19 Clin Com 01/14/21 01/14/21 01/14/21 Range/Units 11:47 12:24 12:49 WBC (4.8-10.8) X10*3/uL RBC (4.20-5.50) X10*6/uL Hgb (12.0-16.0) g/dl Hct (37.0-47.0) % MCV (80.0-98.0) fL MCH (27.0-33.0) pg MCHC (31.0-35.0) g/dl RDW (11.0-16.0) % Plt Count (160-400) X10*3/uL MPV (9.4-12.3) fL Immature Gran % (Auto) (0.0-0.4) % Neut % (Auto) (45-73) % Lymph % (Auto) (20-40) % [place] % (Auto) (2-11) % Eos % (Auto) (0-4) % Baso % (Auto) (0-2) % Lymph # (Auto) (1.2-4.9) X10*3/uL [place] # (Auto) (0.1-1.2) X10*3/uL Eos # (Auto) (0.0-0.4) X10*3/uL Baso # (Auto) (0.0-0.2) X10*3/uL Abs Immat Gran (auto) (0.00-0.03) X10*3/uL Absolute Neuts (auto) (2.0-8.3) x10*3/uL Absolute Nucleated RBC (0.0-0.012) X10*3/uL Nucleated RBC % (auto) (0.0-0.2) /100WBC PT (9.9-13.0) SEC INR (0.9-1.1) APTT (24.1-38.0) SEC Sodium (135-145) mmol/L Potassium (3.3-5.1) mmol/L Chloride (96-108) mmol/L Carbon Dioxide (22-29) mmol/L Anion Gap (12-20) BUN (9-16) mg/dL Creatinine (0.5-1.4) mg/dL Estim Creat Clear Calc Estimated GFR POC Glucose 224 H (60-115) mg/dL Random Glucose (60-115) mg/dL Lactic Acid (0.5-2.0) mmol/L Calcium (8.4-10.2) mg/dL Total Bilirubin (0.0-1.0) mg/dL AST (5-31) U/L ALT (0-31) U/L Alkaline Phosphatase (39-117) U/L Troponin I High Sens (<3.5-17.0) ng/L B-Natriuretic Peptide 1684 H (<100) pg/mL Total Protein (6.5-8.0) g/dL Albumin (3.5-5.0) g/dL Beta HCG, Quant mIU/mL Urine Color YELLOW Urine Appearance CLEAR Urine pH 7.5 (5.0-8.0) Ur Specific [place] 1.020 (1.005-1.025) Urine Protein 3+ H (NEG-TRACE) MG/DL Urine Glucose (UA) 500 H (NEG) MG/DL Urine Ketones NEG (NEG) MG/DL Urine Blood 2+ H (NEG) Urine Nitrite NEG (NEG) Ur Leukocyte Esterase NEG (NEG) Urine RBC 5-9 H (0) /HPF Urine WBC 1-4 (0-4) /HPF Ur Squamous Epith Cells TRACE /LPF Urine Bacteria 2+ /LPF COVID-19 (CARO) (Negative) COVID-19 Clin Com <Daiana Brown DO - Last Filed: 01/14/21 14:40> Imaging Data Chest x-ray: Radiologist's impression: FINDINGS: Right PICC appears in similar configuration to prior, looping in the region of the lower internal jugular vein with tip in the region of the upper right brachiocephalic vein. Lung volumes are symmetric. Perihilar interstitial prominence is similar to prior. Mild right infrahilar haziness is similar to prior. No evidence of pneumothorax or definite pleural effusion. The cardiomediastinal silhouette is stable. No acute osseous findings are seen. XR/XR chest 1V IMPRESSION: Perihilar interstitial prominence, similar to prior and which could reflect airways disease or vascular congestion. Mild right infrahilar haziness is similar to prior. <Kareem Kilgore MD - Last Filed: 01/14/21 08:23> Critical Care Time Critical Care Time Critical Care Time: Yes <Daiana Brown DO - Last Filed: 01/14/21 14:40> Total Critical Care Time: 120 <Daiana Brown DO - Last Filed: 01/14/21 14:40> Attestation: medical consults, bipap, reassesments, IV lasix, review of records I attest to this time spent taking care of the patient <Daiana Brown DO - Last Filed: 01/14/21 14:40> Discharge Plan Discharge Clinical Impression: Acute dyspnea, Tachycardia, Pleural effusion, Cellulitis CHF (congestive heart failure) Qualifiers: Heart failure type: unspecified Heart failure chronicity: acute Qualified Code(s): I50.9 - Heart failure, unspecified Fever Qualifiers: Fever type: unspecified Qualified Code(s): R50.9 - Fever, unspecified <Kareem Kilgore MD - Last Filed: 01/14/21 08:23> Patient Disposition: Admitted As Inpatient <Kareem Kilgore MD - Last Filed: 01/14/21 08:23>
[2021-01-14 06:21] LABS: COVID-19 Test Negative (Negative)
[2021-01-14] MEDS: Morphine Sulfate 4 MG/ML CARTRIDGE IVPUSH (07:16)
[2021-01-14] MEDS: 0.9 % Sodium Chloride 1,000 ML 999 ML IVCONT ×2 (07:17→09:31)
[2021-01-14] MEDS: diphenhydrAMINE HCL 50 MG/ML VIAL 25 MG IVPUSH (07:31)
--- NOTE | 2021-01-14 08:52 | PC.NURSE ---
patient refused blood draw at this time.
[2021-01-14] MEDS: ondansetron HCL 4 MG/2 ML VIAL IVPUSH (09:29)
[2021-01-14] MEDS: Acetaminophen 325 MG TABLET 650 MG PO ×2 (10:07→19:25)
[2021-01-14 10:11] LABS: Alanine Aminotransferase 12 U/L (0-31); Albumin Level 2.2 g/dL (3.5-5.0); Alkaline Phosphatase 116 U/L (39-117); Anion Gap 12 (12-20); Aspartate Amino Transferase 14 U/L (5-31); Bilirubin Total 0.7 mg/dL (0.0-1.0); Blood Urea Nitrogen 21 mg/dL (9-16); Calcium 7.1 mg/dL (8.4-10.2); Carbon Dioxide 21 mmol/L (22-29); Chloride 107 mmol/L (96-108); Creatinine Clr Calc Pharmacy 64.1; Estimated Glomerular Filt Rate 43; Glucose Random 230 mg/dL (60-115); Sodium 136 mmol/L (135-145); Total Protein 5.9 g/dL (6.5-8.0)
[2021-01-14 10:21] LABS: HCG Quantitative < 2 mIU/mL
[2021-01-14 10:52] LABS: Lactic Acid 2.7 mmol/L (0.5-2.0)
[2021-01-14] MEDS: iohexoL 350 MG/ML 100 ML INFUS..BTL IV (10:55)
[2021-01-14] MEDS: diphenhydrAMINE HCL 50 MG/ML VIAL 12.5 MG IVPUSH (11:21)
[2021-01-14] MEDS: Prochlorperazine Edisylate 10 MG/2 ML VIAL 5 MG IVPUSH (11:22)
--- NOTE | 2021-01-14 11:24 | PHA.MEDREC ---
Pharmacy Consult ? Medication Reconciliation Pharmacy has completed the medication reconciliation. patient is a poor historian. Reports she has been getting ABX infusion. Per discharge summary on 12/11/2020 she should be getting Ivanz for 36 days therefore last dose would be about 01/16/21. Dr. Brown wanted to give dose in the ED, recommended to switch to meropenem per policy. Patient also reported she did not take oxycodone outpatient and Furosemide did not sound familar. Rest of list was completed by claim history. Cintia Gaytan, JvD
[2021-01-14] MEDS: Furosemide 40 MG/4 ML VIAL IVPUSH (11:28)
[2021-01-14 12:01] LABS: INTERNATIONAL NORM RATIO 1.3 (0.9-1.1); Prothrombin Time 15.3 SEC (9.9-13.0)
--- NOTE | 2021-01-14 12:03 | PC.NURSE ---
attempt to put a second line in the pt, she refused any other pokes unless the IV in her L AC does not work any more. explained to pt the need for a second line and she continued to refuse.
[2021-01-14 12:04] LABS: Partial Thromboplastin Time 24.5 SEC (24.1-38.0)
[2021-01-14 12:17] LABS: B Type Natriuretic Peptide 1684 pg/mL (<100)
[2021-01-14 12:28] LABS: Glucose, Whole Blood 224 mg/dL (60-115)
[2021-01-14 12:33] LABS: Reflex Lactate? Lactic Acid Added
[2021-01-14 12:55] LABS: Appearance Urine CLEAR; Color Urine YELLOW; Glucose Urine UA 500 MG/DL (NEG); Leukocyte Esterase Urine NEG (NEG); Nitrite Urine NEG (NEG); PH 7.5 (5.0-8.0); Urine Blood 2+ (NEG); Urine Ketones NEG (NEG); Urine Protein 3+ MG/DL (NEG-TRACE)
[2021-01-14 13:03] LABS: Squamous Epithelial Cell Urine TRACE /LPF
[2021-01-14 13:04] LABS: Bacteria Urine 2+ /LPF
--- NOTE | 2021-01-14 13:29 | PM.IMHP ---
History of Present Illness Date of Service: 01/14/21 Attending physician on admission: Scarlet Arora Chief Complaint: sob 30-year-old female past medical history of hypertension, diabetes, diabetic nephropathy legally blind, is status post right TMA, and multiple left toe amputation recently discharged from [facility] after being treated for right foot osteomyelitis and was discharged home on IV ertapenem for MRSA infection as per patient she finished a course of antibiotic, patient also was noted to have severe anemia of chronic disease with iron deficiency, patient was treated with IV iron and was discharged home on by mouth iron, patient was recently evaluated by Dr. Arias for nonhealing left lower extremity ulcer, she was noted to have good wound healing and was recommended continued wound care once weekly, patient was recently seen at [facility] on 01/07 due to symptoms of generalized body ache chest pain, and was noted to have elevated BNP, patient was recommended admission however she declined due to anxiety and went home and returned to [facility] due to symptoms of shortness of breath of couple weeks, with associated headache, coughing spells, feeling hot and cold, her workup in the emergency room showed an elevated BNP that bumped from 955-1600, a chest x-ray was suggestive of pulmonary edema a CTA chest was obtained that showed no PE but showed bilateral large pleural effusion and small pericardial effusion she was also noted to have oxygenation of 91% on room air, elevated creatinine of 1.5 patient was also febrile ,tachypneic and tachycardic there was concern for sepsis therefore patient treated with IV fluid, IV meropenem, patient noted to have worsening shortness of breath therefore fluids were discontinued patient treated with IV Lasix, Xopenex she was intolerant of BiPAP, with above treatment patient at present is feeling less short of breath, denies chest pain, awake alert tachycardia and tachypnea is improving therefore patient is now being admitted to intermediate care unit . Review of Systems Review of Systems: General headache ,no dizziness, no fever chills. CVS no chest pain, no palpitation. Respiratory cough, nonproductive, shortness of breath as above. Gastrointestinal no nausea, no vomiting, no abdominal pain Yes all other systems are reviewed and are negative PMFSH Medical History Asthma Back pain Blind right eye Bone infection Cellulitis and abscess of foot Depression with anxiety Diabetes Diabetic retinopathy DM foot ulcer Essential hypertension HTN (hypertension) Migraine Osteomyelitis test positive Severe anemia Type 2 diabetes mellitus with hyperglycemia, with long-term current use of insulin Family History Mother Coronary artery disease Myocardial infarction Stroke Diabetes mellitus Father Myocardial infarction Pertinent family history: strong family history of diabetes and coronary artery disease Surgical History History of transmetatarsal amputation of foot S/P transmetatarsal amputation of foot Social History Household Members: Significant Other Household Members Other:: Sister, Hucml[employer]-[id number], nephew Housing: Apartment Do you presently have visiting nurse or other home services: Yes ([employer]) Alcohol intake: never Patient Tobacco Use Status: Never used Tobacco e-Cigarette/Vaping Use: Never Used Second Hand Smoke Exposure: No Use of substances other than those prescribed or required for medical reasons: No Currently Displaying Signs/Symptoms of Drug Intoxication Withdrawal: No Have you been hit, kicked, punched, or otherwise hurt by someone within the past year? If so, by whom?: No Do you feel safe in your current relationship?: Yes Is there a partner from a previous relationship who is making you feel unsafe now?: No Are you made to feel afraid or neglected: No [facility] Practices: Does not take blood Advance Directives: No Advance Directives Information Provided: No Do you have thoughts of harming others: None Do you have a plan to hurt others: No Plan Recently lost weight without trying: Unsure How much weight loss: Unsure Eating poorly because of decreased appetite: No Nutrition screen score: 4 Nutrition Risks: No Nutritional Risk Patient : No : No Poor oral hygiene: No service: No Current occupational status: disabled Gender identity: Female Meds Allergies Allergy/AdvReac Type Severity Reaction Status Date / Time morphine [MORPHINE] Allergy Intermediate Itching Verified 01/14/21 07:31 Active Medications: Current Medications Acetaminophen (Acetaminophen 325 Mg Tablet) 650 mg PO Q6H PRN PRN Reason: Pain, Mild (Pain Scale 1-3) Amlodipine Besylate (Amlodipine Besylate 5 Mg Tablet) 5 mg PO DAILY [facility]; Protocol Dextrose (Dextrose 50 % 25 Gm/50 Ml Vial) 25 gm IVPUSH Q15M PRN; Protocol PRN Reason: per Hypoglycemia Standing Ord. Furosemide (Furosemide 40 Mg Tablet) 40 mg PO BID@0900,1800 [facility]; Protocol Glucose (Glucose Gel 15 Gm Gel..Gram.) 15 gm PO Q15M PRN; Protocol PRN Reason: per Hypoglycemia Standing Ord. Meropenem 1 gm/ Sodium (Chloride) 100 mls @ 100 mls/hr IV Q8H [facility] Insulin Glargine (Insulin Glargine,Hum.Rec.Anlog 100 Unit/Ml 10 Ml Vial) 14 unit SUBCUT DAILY [facility] Insulin Human Lispro (Insulin Lispro 100 Unit/Ml 3 Ml Vial) 0 unit SUBCUT QIDACHS [facility]; Protocol Ondansetron HCl (Ondansetron Hcl 4 Mg/2 Ml Vial) 4 mg IVPUSH Q8H PRN PRN Reason: Nausea and Vomiting Pharmacy Consult (Consult Rx Perform Med Rec) 1 each MISCELLANE ONCE PRN PRN Reason: Consult order Rivaroxaban (Rivaroxaban 10 Mg Tablet) 10 mg PO DAILY [facility] Sertraline HCl (Sertraline Hcl 25 Mg Tablet) 25 mg PO DAILY [facility] Sodium Chloride (0.9 % Sodium Chloride Flush 3 Ml Syringe) 3 ml IVFLUSH QSHIFT [facility] Home Medications Medication Instructions Recorded Confirmed Last Taken Type amlodipine 2.5 mg tablet 1 tab PO DAILY 12/07/20 01/14/21 Unknown History empagliflozin 10 mg tablet 1 tab PO QAM 12/07/20 01/14/21 Unknown History (Jardiance) insulin aspart U-100 100 unit/mL See Protocol SUBCUT DIRECTED PRN 12/07/20 01/14/21 Unknown History (3 mL) subcutaneous pen (Novolog Flexpen U-100 Insulin aspart) lisinopril 20 mg tablet 1 tab PO DAILY 12/07/20 01/14/21 Unknown History sertraline 25 mg tablet 1 tab PO DAILY 12/07/20 01/14/21 Unknown History Physical Exam Vital Signs and Narrative: Vital Signs: Last Vital Signs Temp 101.7 F H 01/14/21 12:45 Pulse 114 H 01/14/21 13:00 Resp 20 01/14/21 13:00 BP 155/91 H 01/14/21 13:00 Pulse Ox 97 01/14/21 13:00 Oxygen Flow Rate 2 01/14/21 04:33 Body Mass Index 32.3 General awake, alert,no acute distress.? HEENT opaque right cornea, legally blind Neck supple,no JVD. CVS? regular rate rhythm, tachycardia Respiratory lungs diminished breath sound bilaterally, no respiratory distress Gastrointestinal abdomen soft, nontender, bowel sounds audible, no guarding , no rigidity. Extremities left foot missing 1st and 5th toes, right foot transmetatarsal amputation superficial ulceration at medial and lateral margin Neuro nonfocal , speech clear. Skin no rash Psych appropriate affect Results Labs CBC and Chem 7: 01/15/21 09:21 01/15/21 09:18 Labs: Laboratory Results - last 24 hr 01/14/21 01/14/21 01/14/21 05:50 05:50 05:50 MCV 82.5 MCH 26.4 L MCHC 31.9 RDW 15.5 Plt Count 301 MPV 11.0 Immature Gran % (Auto) 0.4 Neut % (Auto) 87.0 H Lymph % (Auto) 5.0 L Stanley % (Auto) 6.7 Eos % (Auto) 0.5 Baso % (Auto) 0.4 Lymph # (Auto) 0.4 L Stanley # (Auto) 0.5 Eos # (Auto) 0.0 Baso # (Auto) 0.0 Abs Immat Gran (auto) 0.03 Absolute Neuts (auto) 7.0 Absolute Nucleated RBC 0.000 Nucleated RBC % (auto) 0.0 PT INR APTT Anion Gap Estim Creat Clear Calc Estimated GFR POC Glucose Random Glucose Lactic Acid Calcium Total Bilirubin AST ALT Alkaline Phosphatase Troponin I High Sens 8.4 B-Natriuretic Peptide Total Protein Albumin Beta HCG, Quant Urine Color Urine Appearance Urine pH Ur Specific [place] Urine Protein Urine Glucose (UA) Urine Ketones Urine Blood Urine Nitrite Ur Leukocyte Esterase Urine RBC Urine WBC Ur Squamous Epith Cells Urine Bacteria COVID-19 (CARO) Negative COVID-19 Clin Com See Note 01/14/21 01/14/21 01/14/21 09:35 10:27 11:47 MCV MCH MCHC RDW Plt Count MPV Immature Gran % (Auto) Neut % (Auto) Lymph % (Auto) Stanley % (Auto) Eos % (Auto) Baso % (Auto) Lymph # (Auto) Stanley # (Auto) Eos # (Auto) Baso # (Auto) Abs Immat Gran (auto) Absolute Neuts (auto) Absolute Nucleated RBC Nucleated RBC % (auto) PT 15.3 H INR 1.3 H APTT 24.5 Anion Gap 12 Estim Creat Clear Calc 64.1 Estimated GFR 43 POC Glucose Random Glucose 230 H Lactic Acid 2.7 H* Calcium 7.1 L Total Bilirubin 0.7 AST 14 ALT 12 Alkaline Phosphatase 116 Troponin I High Sens B-Natriuretic Peptide Total Protein 5.9 L Albumin 2.2 L Beta HCG, Quant < 2 Urine Color Urine Appearance Urine pH Ur Specific [place] Urine Protein Urine Glucose (UA) Urine Ketones Urine Blood Urine Nitrite Ur Leukocyte Esterase Urine RBC Urine WBC Ur Squamous Epith Cells Urine Bacteria COVID-19 (CARO) COVID-19 [employer] Com 01/14/21 01/14/21 01/14/21 11:47 12:24 12:49 MCV MCH MCHC RDW Plt Count MPV Immature Gran % (Auto) Neut % (Auto) Lymph % (Auto) Stanley % (Auto) Eos % (Auto) Baso % (Auto) Lymph # (Auto) Stanley # (Auto) Eos # (Auto) Baso # (Auto) Abs Immat Gran (auto) Absolute Neuts (auto) Absolute Nucleated RBC Nucleated RBC % (auto) PT INR APTT Anion Gap Estim Creat Clear Calc Estimated GFR POC Glucose 224 H Random Glucose Lactic Acid Calcium Total Bilirubin AST ALT Alkaline Phosphatase Troponin I High Sens B-Natriuretic Peptide 1684 H Total Protein Albumin Beta HCG, Quant Urine Color YELLOW Urine Appearance CLEAR Urine pH 7.5 Ur Specific [place] 1.020 Urine Protein 3+ H Urine Glucose (UA) 500 H Urine Ketones NEG Urine Blood 2+ H Urine Nitrite NEG Ur Leukocyte Esterase NEG Urine RBC 5-9 H Urine WBC 1-4 Ur Squamous Epith Cells TRACE Urine Bacteria 2+ COVID-19 (CARO) COVID-19 [employer] Com Imaging Radiologist's Impressions: Impressions Chest X-Ray 01/14/21 06:29 IMPRESSION: Perihilar interstitial prominence, similar to prior and which could reflect airways disease or vascular congestion. Mild right infrahilar haziness is similar to prior. Chest CTA 01/14/21 06:41 IMPRESSION: Limited exam due to artifact from respiratory motion. No large or central pulmonary embolism is seen. Evaluation of smaller segmental and subsegmental pulmonary arteries is significantly limited due to respiratory motion artifact. Enlarged heart, small pericardial effusion and large bilateral pleural effusions. CHF should be considered. VTE: negative Assessment and Plan (1) PAD (peripheral artery disease): Status: Acute (2) CHF (congestive heart failure): Qualifiers: Heart failure chronicity: acute Heart failure type: unspecified Qualified Code(s): I50.9 - Heart failure, unspecified Status: Acute (3) Pleural effusion: Status: Acute (4) Fever: Qualifiers: Fever type: unspecified Qualified Code(s): R50.9 - Fever, unspecified Status: Acute (5) Cellulitis: Status: Acute (6) Sepsis: Status: Acute 30-year-old female with past medical history of uncontrolled diabetes mellitus last hemoglobin A1c 10.7 with retinopathy and legally blind, history of hypertension, history of osteomyelitis status post right transmetatarsal amputation and left foot toe amputations, recently discharged from [facility] on IV antibiotics for foot infection, patient finished course of IV ertapenem and presented to [facility] due to symptoms of shortness of breath of couple weeks associated with chest discomfort, cough feeling hot and cold today in the emergency room patient noted to have sepsis likely due to right leg cellulitis as well as acute congestive heart failure with elevated BP and P, bilateral pleural effusion and mild pericardial effusions. Anasarca ? New onset acute congestive heart failure/fluid overload due to nephrotic syndrome will admit patient to telemetry unit, no evidence of acute ischemia, no acute ischemic changes on EKG and normal troponin. CTA showed no PE will treat patient with IV Lasix twice daily follow BMP /BNP, daily weight, and I's and Os, will obtain echocardiogram and cardiology consultation. patient undergoing thoracocentesis due to large pl. effusion, send fluid for Gram stain cultures sensitive mild pericardial effusion follow echocardiogram and will discuss further care with Cardiology sepsis due to right leg cellulitis will place on IV meropenem follow 2 set of blood cultures, normal WBC will obtain ID consultation previously patient was treated with IV ertapenem due to MRSA, UA positive but no wbc well-healed foot wounds continue daily dressing acute renal injury on chronic kidney disease stage 3 likely related to diabetic nephropathy Has nephrotic range proteinuria likely contributing to fluid overload, follow BMP closely while being diuresed, obtain nephrology diabetes mellitus uncontrolled will place patient on diabetic diet Lantus and insulin sliding scale hypertension will increase dose of amlodipine 2.5 mg to 5 mg daily and hold lisinopril due to MYNOR. DVT prophylaxis with Xarelto Quality Stroke Does the patient have a stroke diagnosis?: No VTE Prior VTE?: No VTE Risk Level:: Medical - moderate - high VTE Device Contraindication: Patient Refused VTE Drug Contraindication: N/A - Med Ordered
--- NOTE | 2021-01-14 14:23 | PC.NURSE ---
pt refused repeat blood work to be done by all attempting parties (RN, PCT aand phlebotomy). made aware. refused to allow this RN to pull from her PICC line
--- NOTE | 2021-01-14 14:40 | PC.NURSE ---
PT CONTINUES TO REFUSE REPEAT LAB WORK INCLUDING REPEAT/FOLLOW LACTIC.
--- NOTE | 2021-01-14 15:49 | PC.NURSE ---
pt in interventional radiology for thoracentesis
[2021-01-14] MEDS: Lidocaine HCl 1 % MPF 5 ML VIAL SUBCUT (16:11)
--- NOTE | 2021-01-14 16:18 | HO.RADPN ---
RADIOLOGY Narrative Narrative: Right thoracentesis using 5 fr catheter. 1L clear yellow fluid removed. Specimen sent.
--- NOTE | 2021-01-14 18:01 | PC.NURSE ---
explained to pt plan to admit to the hospital. pt understanding.
--- NOTE | 2021-01-14 18:02 | PC.NURSE ---
asked pt to keep BP cuff and other vital systems on as pt continues to take them off. pt non-compliant with leaving blood pressure cuff on her arm for vitals Q30 min
[2021-01-14 18:46] LABS: Glucose, Whole Blood 117 mg/dL (60-115)
[2021-01-14] MEDS: 0.9 % Sodium Chloride Flush 3 ML SYRINGE IVFLUSH (18:56)
[2021-01-14] MEDS: Furosemide 40 MG TABLET PO (18:57)
[2021-01-14 22:48] LABS: Glucose, Whole Blood 102 mg/dL (60-115)
[2021-01-15] VITALS (9 sets, daily range): BP systolic 132–179; BP diastolic 77–103; PULSE 80–120; RESP 18–20; TEMP 36.1–37.4; O2SAT 80–100
--- NOTE | 2021-01-15 03:04 | PC.NURSE ---
pt refusing lab draws. hospitalist notified
--- NOTE | 2021-01-15 04:16 | PC.NURSE ---
Hospitalist notified of pt vital signs pt also c/o 10/05 back pain. hospitalist notified
--- NOTE | 2021-01-15 04:40 | PC.NURSE ---
hospitalist aware of pt vital signs no new orders at this time
[2021-01-15] MEDS: Lidocaine 4 % Patch ADH..PATCH 1 PATCH TRANSDERMA ×2 (04:48→08:27)
--- NOTE | 2021-01-15 05:33 | PC.NURSE ---
pt complaining of right sided pain at site where they took the liquid out (thoracentesis). pt in right lateral position while stating this. this nurse encouraged pt to lay on back or opposite side if possible to reduce discomfort on procedure side. this nurse assessed procedure site, dressing is still dry and intact. no redness or warmth noted around dressing. hospitalist notified.
[2021-01-15] MEDS: oxyCODONE HCl Immed Release 5 MG TABLET PO ×2 (05:45→18:23)
--- NOTE | 2021-01-15 06:03 | PC.NURSE ---
Nurse to nurse report given to Abbey BETH
[2021-01-15 07:16] LABS: Glucose, Whole Blood 83 mg/dL (60-115)
[2021-01-15 07:36] LABS: pH Pleural Fluid 7.54
[2021-01-15 07:37] LABS: Albumin Pleural Fluid 0.3; Total Protein Pleural Fluid 0.7
[2021-01-15 07:38] LABS: Amylase Pleural Fluid 5; Glucose Pleural Fluid 228; LDH Pleural Fluid 38
[2021-01-15] MEDS: amLODIPine Besylate 5 MG TABLET PO (08:27)
[2021-01-15] MEDS: Sertraline HCL 25 MG TABLET PO (08:27)
[2021-01-15] MEDS: Rivaroxaban 10 MG TABLET PO (08:27)
[2021-01-15] MEDS: Furosemide 40 MG TABLET PO ×2 (08:27→17:12)
[2021-01-15] MEDS: Insulin Glargine,Hum.rec.anlog 100 UNIT/ML 10 ML VIAL 14 UNIT SUBCUT (08:28)
[2021-01-15] MEDS: ondansetron HCL 4 MG/2 ML VIAL IVPUSH (08:40)
[2021-01-15 09:30] LABS: Hemoglobin 8.3 g/dl (12.0-16.0); White Blood Count 3.3 X10*3/uL (4.8-10.8)
[2021-01-15 09:42] LABS: Hematocrit 26.7 % (37.0-47.0); Mean Corpuscular HGB Conc 31.1 g/dl (31.0-35.0); Mean Corpuscular Hemoglobin 25.7 pg (27.0-33.0); Mean Corpuscular Volume 82.7 fL (80.0-98.0); Mean Platelet Volume 11.4 fL (9.4-12.3); Platelet Count 179 X10*3/uL (160-400); Red Blood Count 3.23 X10*6/uL (4.20-5.50); Red Cell Distribution Width 15.5 % (11.0-16.0)
[2021-01-15 09:44] LABS: Lactic Acid 0.8 mmol/L (0.5-2.0)
[2021-01-15 09:52] LABS: B Type Natriuretic Peptide 1299 pg/mL (<100)
[2021-01-15 09:58] LABS: Anion Gap 10 (12-20); Blood Urea Nitrogen 22 mg/dL (9-16); Calcium 6.9 mg/dL (8.4-10.2); Carbon Dioxide 21 mmol/L (22-29); Chloride 102 mmol/L (96-108); Creatinine Clr Calc Pharmacy 57.6; Estimated Glomerular Filt Rate 38; Glucose Random 88 mg/dL (60-115); Potassium 3.4 mmol/L (3.3-5.1); Sodium 130 mmol/L (135-145)
[2021-01-15] MEDS: Butalb/Acetamin/Caff 50/325/40 TABLET 1 TAB PO (10:53)
[2021-01-15] MEDS: 0.9 % Sodium Chloride Flush 3 ML SYRINGE IVFLUSH ×3 (10:54→21:34)
[2021-01-15 11:04] LABS: Glucose, Whole Blood 94 mg/dL (60-115)
--- NOTE | 2021-01-15 12:21 | PM.CNCAR ---
History of Present Illness History of Present Illness Date of Service: 01/15/21 Requesting physician: Scarlet Arora Chief complaint: Acute chf/sepsis/cellulitis Narrative: 30-year-old female who is presenting with shortness of breath and pleural effusions and small pericardial effusion based on CT scan. She has background history of hypertension, diabetes, diabetic nephropathy, legally blind and peripheral vascular disease. She was recently discharged from hospital after being treated for osteomyelitis. She is anemic. She came to emergency department member 12 shortness of breath but it appears she left AMA. She again presented yesterday with shortness of breath. Her BNP was elevated. She had CT of the chest which showed no pulmonary embolism but showed large pleural effusions and small pericardial effusion. She was given diuretics and she is reporting that she had thoracentesis done. She is feeling much better since then. She said she had sharp chest pains at home which brought him in on January 07 and this time. As mentioned CT PA did not show any pulmonary embolism. [facility] Past Medical History Medical History Asthma Back pain Blind right eye Bone infection Cellulitis and abscess of foot Depression with anxiety Diabetes Diabetic retinopathy DM foot ulcer Essential hypertension HTN (hypertension) Migraine Osteomyelitis test positive Severe anemia Type 2 diabetes mellitus with hyperglycemia, with long-term current use of insulin Family History Family History Mother Coronary artery disease Myocardial infarction Stroke Diabetes mellitus Father Myocardial infarction Surgical History Surgical History History of transmetatarsal amputation of foot S/P transmetatarsal amputation of foot Social History Social History Household Members: Significant Other Household Members Other:: Sister, [id number], nephew Housing: Apartment Do you presently have visiting nurse or other home services: Yes (INSTRUCTIONAL AIDE services) Alcohol intake: never Patient Tobacco Use Status: Never used Tobacco e-Cigarette/Vaping Use: Never Used Second Hand Smoke Exposure: No Use of substances other than those prescribed or required for medical reasons: No Currently Displaying Signs/Symptoms of Drug Intoxication Withdrawal: No Have you been hit, kicked, punched, or otherwise hurt by someone within the past year? If so, by whom?: No Do you feel safe in your current relationship?: Yes Is there a partner from a previous relationship who is making you feel unsafe now?: No Are you made to feel afraid or neglected: No Yarsanism Healthcare Practices: Does not take blood Advance Directives: No Advance Directives Information Provided: No Do you have thoughts of harming others: None Do you have a plan to hurt others: No Plan Recently lost weight without trying: Unsure How much weight loss: Unsure Eating poorly because of decreased appetite: No Nutrition screen score: 4 Nutrition Risks: No Nutritional Risk Patient : No : No Poor oral hygiene: No service: No Current occupational status: disabled Gender identity: Female Meds Allergies Allergy/AdvReac Type Severity Reaction Status Date / Time morphine [MORPHINE] Allergy Intermediate Itching Verified 01/14/21 07:31 Active Medications: Current Medications Acetaminophen (Acetaminophen 325 Mg Tablet) 650 mg PO Q6H PRN PRN Reason: Pain, Mild (Pain Scale 1-3) Last Admin: 01/14/21 19:25 Dose: 650 mg Documented by: Acetaminophen/Butalbital/Caffeine (Butalb/Acetamin/Caff 50/325/40 Tablet) 1 tab PO Q6H PRN PRN Reason: Headache Last Admin: 01/15/21 10:53 Dose: 1 tab Documented by: Amlodipine Besylate (Amlodipine Besylate 5 Mg Tablet) 5 mg PO DAILY [facility]; Protocol Last Admin: 01/15/21 08:27 Dose: 5 mg Documented by: Dextrose (Dextrose 50 % 25 Gm/50 Ml Vial) 25 gm IVPUSH Q15M PRN; Protocol PRN Reason: per Hypoglycemia Standing Ord. Furosemide (Furosemide 40 Mg Tablet) 40 mg PO BID@0900,1800 [facility]; Protocol Last Admin: 01/15/21 08:27 Dose: 40 mg Documented by: Glucose (Glucose Gel 15 Gm Gel..Gram.) 15 gm PO Q15M PRN; Protocol PRN Reason: per Hypoglycemia Standing Ord. Meropenem 1 gm/ Sodium (Chloride) 100 mls @ 100 mls/hr IV Q8H [facility] Last Infusion: 01/15/21 05:14 Dose: Infused Documented by: Insulin Glargine (Insulin Glargine,Hum.Rec.Anlog 100 Unit/Ml 10 Ml Vial) 14 unit SUBCUT DAILY [facility] Last Admin: 01/15/21 08:28 Dose: 14 unit Documented by: Insulin Human Lispro (Insulin Lispro 100 Unit/Ml 3 Ml Vial) 0 unit SUBCUT QIDACHS [facility]; Protocol Last Admin: 01/15/21 07:56 Dose: Not Given Documented by: Lidocaine (Lidocaine 4 % Patch Adh..Patch) 1 patch TRANSDERMA DAILY [facility]; Protocol Last Admin: 01/15/21 08:27 Dose: 1 patch Documented by: Ondansetron HCl (Ondansetron Hcl 4 Mg/2 Ml Vial) 4 mg IVPUSH Q8H PRN PRN Reason: Nausea and Vomiting Last Admin: 01/15/21 08:40 Dose: 4 mg Documented by: Oxycodone HCl (Oxycodone Hcl Immed Release 5 Mg Tablet) 5 mg PO Q6H PRN PRN Reason: Pain, Severe (Pain Scale 7-10) Pharmacy Consult (Consult Rx Perform Med Rec) 1 each MISCELLANE ONCE PRN PRN Reason: Consult order Rivaroxaban (Rivaroxaban 10 Mg Tablet) 10 mg PO DAILY [facility] Last Admin: 01/15/21 08:27 Dose: 10 mg Documented by: Sertraline HCl (Sertraline Hcl 25 Mg Tablet) 25 mg PO DAILY [facility] Last Admin: 01/15/21 08:27 Dose: 25 mg Documented by: Sodium Chloride (0.9 % Sodium Chloride Flush 3 Ml Syringe) 3 ml IVFLUSH QSHIFT [facility] Last Admin: 01/15/21 10:54 Dose: 3 ml Documented by: Home Medications Medication Instructions Recorded Confirmed Last Taken Type amlodipine 2.5 mg tablet 1 tab PO DAILY 12/07/20 01/14/21 Unknown History empagliflozin 10 mg tablet 1 tab PO QAM 12/07/20 01/14/21 Unknown History (Jardiance) insulin aspart U-100 100 unit/mL See Protocol SUBCUT DIRECTED PRN 12/07/20 01/14/21 Unknown History (3 mL) subcutaneous pen (Novolog Flexpen U-100 Insulin aspart) lisinopril 20 mg tablet 1 tab PO DAILY 12/07/20 01/14/21 Unknown History sertraline 25 mg tablet 1 tab PO DAILY 12/07/20 01/14/21 Unknown History Physical Exam Vital Signs: Vital Signs: Last Vital Signs Temp 97.0 F 01/15/21 11:14 Pulse 103 H 01/15/21 11:14 Resp 18 01/15/21 11:14 BP 149/90 H 01/15/21 11:14 Pulse Ox 95 01/15/21 11:14 Oxygen Flow Rate 2 01/14/21 04:33 Body Mass Index 32.3 GENERAL APPEARANCE: in no acute distress, pleasant. NECK: no carotid bruit, mild JVD. SKIN: no suspicious lesions, warm and dry. HEART: no murmurs, regular tachycardia. LUNGS: clear to auscultation anteriorly. ABDOMEN: soft, nontender. EXTREMITIES: no edema. NEUROLOGIC: No gross deficits, AAO X 3. Legally blind. Objective Labs and Meds Result diagrams: 01/15/21 09:21 01/15/21 09:18 Lab results: Laboratory Results - last 24 hr 01/14/21 01/14/21 01/14/21 12:24 12:49 15:23 WBC RBC Hgb Hct MCV MCH MCHC RDW Plt Count MPV Absolute Nucleated RBC Nucleated RBC % (auto) Sodium Potassium Chloride Carbon Dioxide Anion Gap BUN Creatinine Estim Creat Clear Calc Estimated GFR POC Glucose 224 H Random Glucose Lactic Acid Calcium B-Natriuretic Peptide Urine Color YELLOW Urine Appearance CLEAR Urine pH 7.5 Ur Specific [place] 1.020 Urine Protein 3+ H Urine Glucose (UA) 500 H Urine Ketones NEG Urine Blood 2+ H Urine Nitrite NEG Ur Leukocyte Esterase NEG Urine RBC 5-9 H Urine WBC 1-4 Ur Squamous Epith Cells TRACE Urine Bacteria 2+ Pleural pH Pleural Total Protein 0.7 Pleural Albumin 0.3 Pleural LDH 38 Pleural Glucose 228 Pleural Amylase 5 01/14/21 01/14/21 01/14/21 15:23 18:42 22:45 WBC RBC Hgb Hct MCV MCH MCHC RDW Plt Count MPV Absolute Nucleated RBC Nucleated RBC % (auto) Sodium Potassium Chloride Carbon Dioxide Anion Gap BUN Creatinine Estim Creat Clear Calc Estimated GFR POC Glucose 117 H 102 Random Glucose Lactic Acid Calcium B-Natriuretic Peptide Urine Color Urine Appearance Urine pH Ur Specific [place] Urine Protein Urine Glucose (UA) Urine Ketones Urine Blood Urine Nitrite Ur Leukocyte Esterase Urine RBC Urine WBC Ur Squamous Epith Cells Urine Bacteria Pleural pH 7.54 Pleural Total Protein Pleural Albumin Pleural LDH Pleural Glucose Pleural Amylase 01/15/21 01/15/21 01/15/21 07:13 09:18 09:21 WBC 3.3 L RBC 3.23 L Hgb 8.3 L Hct 26.7 L MCV 82.7 MCH 25.7 L MCHC 31.1 RDW 15.5 Plt Count 179 D MPV 11.4 Absolute Nucleated RBC 0.000 Nucleated RBC % (auto) 0.0 Sodium 130 L Potassium 3.4 Chloride 102 Carbon Dioxide 21 L Anion Gap 10 L BUN 22 H Creatinine 1.59 H Estim Creat Clear Calc 57.6 Estimated GFR 38 POC Glucose 83 Random Glucose 88 Lactic Acid Calcium 6.9 L B-Natriuretic Peptide Urine Color Urine Appearance Urine pH Ur Specific [place] Urine Protein Urine Glucose (UA) Urine Ketones Urine Blood Urine Nitrite Ur Leukocyte Esterase Urine RBC Urine WBC Ur Squamous Epith Cells Urine Bacteria Pleural pH Pleural Total Protein Pleural Albumin Pleural LDH Pleural Glucose Pleural Amylase 01/15/21 01/15/21 01/15/21 09:21 09:21 11:00 WBC RBC Hgb Hct MCV MCH MCHC RDW Plt Count MPV Absolute Nucleated RBC Nucleated RBC % (auto) Sodium Potassium Chloride Carbon Dioxide Anion Gap BUN Creatinine Estim Creat Clear Calc Estimated GFR POC Glucose 94 Random Glucose Lactic Acid 0.8 Calcium B-Natriuretic Peptide 1299 H Urine Color Urine Appearance Urine pH Ur Specific [place] Urine Protein Urine Glucose (UA) Urine Ketones Urine Blood Urine Nitrite Ur Leukocyte Esterase Urine RBC Urine WBC Ur Squamous Epith Cells Urine Bacteria Pleural pH Pleural Total Protein Pleural Albumin Pleural LDH Pleural Glucose Pleural Amylase Imaging Radiologist's impression: Impressions Chest CTA 01/14/21 06:41 IMPRESSION: Limited exam due to artifact from respiratory motion. No large or central pulmonary embolism is seen. Evaluation of smaller segmental and subsegmental pulmonary arteries is significantly limited due to respiratory motion artifact. Enlarged heart, small pericardial effusion and large bilateral pleural effusions. CHF should be considered. VTE: negative Thoracentesis/Paracentesis US 01/14/21 11:16 IMPRESSION: Ultrasound-guided right thoracentesis. Chest X-Ray 01/14/21 16:29 IMPRESSION: No pneumothorax post right thoracentesis. Abnormally positioned right upper extremity PICC line. Assessment and Plan (1) CHF (congestive heart failure): Qualifiers: Heart failure chronicity: acute Heart failure type: unspecified Qualified Code(s): I50.9 - Heart failure, unspecified Status: Acute (2) Pleural effusion: Status: Acute 30-year-old female with complex medical issues presenting with shortness of breath. She has noticed to have large pleural effusion and a small pericardial effusion. She has thoracentesis reportedly and is feeling better. Clinically she is volume overloaded. Agree with diuretics. Blood pressure control is not optimal right now. We will titrate medications. She needs echocardiography to assess for any cardiomyopathy. In the meantime continue diuretics. Thank you for allowing me to participate in the care of your patient. Please feel free to contact me if you have any questions. Procedures Date of Service Date of Service: 01/15/21
--- NOTE | 2021-01-15 13:39 | P.PNIM_ITS ---
Subjective Subjective Date of Service: 01/15/21 Interval History: Being followed for generalized edema, complaining of headache dry cough and nausea, later noted to have 1 episode of vomiting, denies abdominal pain no diarrhea, no urinary symptoms of urgency or frequency. Review of Systems General? headache ,no dizziness, no fever chills.? CVS no chest pain, no palpitation.? Respiratory? cough, nonproductive, shortness of breath improving.? Gastrointestinal nausea, vomiting, no abdominal pain Yes all other systems are reviewed and are negative Physical Exam Vital Signs: Vital Signs: Last Vital Signs Temp 97.0 F 01/15/21 11:14 Pulse 103 H 01/15/21 11:14 Resp 18 01/15/21 11:14 BP 149/90 H 01/15/21 11:14 Pulse Ox 90 L 01/15/21 13:24 Oxygen Flow Rate 2 01/14/21 04:33 Body Mass Index 32.3 General awake, alert,no acute distress.? HEENT opaque right cornea, legally blind Neck supple,no JVD. CVS? regular rate rhythm, tachycardia Respiratory lungs? diminished breath sound bilaterally, no respiratory distress, no wheeze, no crackles Gastrointestinal abdomen soft, nontender, bowel sounds audible, no guarding , no rigidity. Extremities left foot missing 1st and 5th toes, right foot transmetatarsal amputation? superficial ulceration at medial and lateral margin Neuro nonfocal , speech clear. Skin no rash Psych appropriate affect Objective Data Active Medications Acetaminophen (Acetaminophen 325 Mg Tablet) 650 mg PO Q6H PRN PRN Reason: Pain, Mild (Pain Scale 1-3) Last Admin: 01/14/21 19:25 Dose: 650 mg Documented by: DANY Acetaminophen/Butalbital/Caffeine (Butalb/Acetamin/Caff 50/325/40 Tablet) 1 tab PO Q6H PRN PRN Reason: Headache Last Admin: 01/15/21 10:53 Dose: 1 tab Documented by: ANASTASIIA Amlodipine Besylate (Amlodipine Besylate 5 Mg Tablet) 5 mg PO DAILY [facility]; Protocol Last Admin: 01/15/21 08:27 Dose: 5 mg Documented by: ANASTASIIA Dextrose (Dextrose 50 % 25 Gm/50 Ml Vial) 25 gm IVPUSH Q15M PRN; Protocol PRN Reason: per Hypoglycemia Standing Ord. Furosemide (Furosemide 40 Mg Tablet) 40 mg PO BID@0900,1800 [facility]; Protocol Last Admin: 01/15/21 08:27 Dose: 40 mg Documented by: ANASTASIIA Glucose (Glucose Gel 15 Gm Gel..Gram.) 15 gm PO Q15M PRN; Protocol PRN Reason: per Hypoglycemia Standing Ord. Guaifenesin/Dextromethorphan (Guaifenesin Dm 200/20/10 Ml 10 Ml Syrup) 10 ml PO Q6H [facility] Meropenem 1 gm/ Sodium (Chloride) 100 mls @ 100 mls/hr IV Q8H [facility] Last Admin: 01/15/21 12:30 Dose: 100 mls/hr Documented by: ANASTASIIA Insulin Glargine (Insulin Glargine,Hum.Rec.Anlog 100 Unit/Ml 10 Ml Vial) 14 unit SUBCUT DAILY [facility] Last Admin: 01/15/21 08:28 Dose: 14 unit Documented by: ANASTASIIA Insulin Human Lispro (Insulin Lispro 100 Unit/Ml 3 Ml Vial) 0 unit SUBCUT QIDACHS [facility]; Protocol Last Admin: 01/15/21 11:31 Dose: Not Given Documented by: ANASTASIIA Non-Admin Reason: No Insulin Coverage Lidocaine (Lidocaine 4 % Patch Adh..Patch) 1 patch TRANSDERMA DAILY [facility]; Protocol Last Admin: 01/15/21 08:27 Dose: 1 patch Documented by: ANASTASIIA Ondansetron HCl (Ondansetron Hcl 4 Mg/2 Ml Vial) 4 mg IVPUSH Q8H PRN PRN Reason: Nausea and Vomiting Last Admin: 01/15/21 08:40 Dose: 4 mg Documented by: ANASTASIIA Oxycodone HCl (Oxycodone Hcl Immed Release 5 Mg Tablet) 5 mg PO Q6H PRN PRN Reason: Pain, Severe (Pain Scale 7-10) Pharmacy Consult (Consult Rx Perform Med Rec) 1 each MISCELLANE ONCE PRN PRN Reason: Consult order Rivaroxaban (Rivaroxaban 10 Mg Tablet) 10 mg PO DAILY [facility] Last Admin: 01/15/21 08:27 Dose: 10 mg Documented by: ANASTASIIA Sertraline HCl (Sertraline Hcl 25 Mg Tablet) 25 mg PO DAILY [facility] Last Admin: 01/15/21 08:27 Dose: 25 mg Documented by: ANASTASIIA Sodium Chloride (0.9 % Sodium Chloride Flush 3 Ml Syringe) 3 ml IVFLUSH QSHIFT [facility] Last Admin: 01/15/21 10:54 Dose: 3 ml Documented by: ANASTASIIA Labs CBC & Chem 7: 01/15/21 09:21 01/15/21 09:18 Labs: Laboratory Results - last 24 hr 01/14/21 01/14/21 01/14/21 15:23 15:23 18:42 MCV MCH MCHC RDW Plt Count MPV Absolute Nucleated RBC Nucleated RBC % (auto) Anion Gap Estim Creat Clear Calc Estimated GFR POC Glucose 117 H Random Glucose Lactic Acid Calcium B-Natriuretic Peptide Pleural pH 7.54 Pleural Total Protein 0.7 Pleural Albumin 0.3 Pleural LDH 38 Pleural Glucose 228 Pleural Amylase 5 01/14/21 01/15/21 01/15/21 22:45 07:13 09:18 MCV MCH MCHC RDW Plt Count MPV Absolute Nucleated RBC Nucleated RBC % (auto) Anion Gap 10 L Estim Creat Clear Calc 57.6 Estimated GFR 38 POC Glucose 102 83 Random Glucose 88 Lactic Acid Calcium 6.9 L B-Natriuretic Peptide Pleural pH Pleural Total Protein Pleural Albumin Pleural LDH Pleural Glucose Pleural Amylase 01/15/21 01/15/21 01/15/21 09:21 09:21 09:21 MCV 82.7 MCH 25.7 L MCHC 31.1 RDW 15.5 Plt Count 179 D MPV 11.4 Absolute Nucleated RBC 0.000 Nucleated RBC % (auto) 0.0 Anion Gap Estim Creat Clear Calc Estimated GFR POC Glucose Random Glucose Lactic Acid 0.8 Calcium B-Natriuretic Peptide 1299 H Pleural pH Pleural Total Protein Pleural Albumin Pleural LDH Pleural Glucose Pleural Amylase 01/15/21 11:00 MCV MCH MCHC RDW Plt Count MPV Absolute Nucleated RBC Nucleated RBC % (auto) Anion Gap Estim Creat Clear Calc Estimated GFR POC Glucose 94 Random Glucose Lactic Acid Calcium B-Natriuretic Peptide Pleural pH Pleural Total Protein Pleural Albumin Pleural LDH Pleural Glucose Pleural Amylase Microbiology Microbiology Results: Microbiology 01/14/21 15:23 Gram Stain - Final Thoracentesis Fluid Anaerobic Culture - Preliminary No growth to date. Body Fluid Culture - Preliminary No growth to date. 01/14/21 11:32 Blood Culture - Preliminary Blood - Venous Prelim: GPC Gram Stain only Prelim: GNR Gram Stain only 01/14/21 10:27 Blood Culture - Preliminary Blood - Venous Prelim: GPC Gram Stain only Prelim: GNR Gram Stain only Assessment and Plan (1) Sepsis: Status: Acute (2) Cellulitis: Status: Acute (3) Pleural effusion: Status: Acute (4) Generalized edema: Status: Acute (5) CHF (congestive heart failure): Status: Acute (6) Acute worsening of stage 3 chronic kidney disease: Status: Acute Assessment and Plan: 30-year-old female with past medical history of uncontrolled diabetes mellitus last hemoglobin A1c 10.7 with retinopathy and legally blind, history of hypertension, history of osteomyelitis status post right transmetatarsal amputation and left foot toe amputations, recently discharged from [facility] on IV antibiotics for foot infection, patient finished course of IV ertapenem and presented to [facility] due to symptoms of shortness of breath of couple? weeks associated with chest discomfort, cough feeling hot and cold today in the emergency room patient noted to have sepsis likely due to right leg cellulitis as well as acute congestive heart failure with elevated BP and P, bilateral pleural effusion and mild pericardial effusions. ?Anasarca ?Feels better this a.m. less shortness of breath 1.5 L negative, BNP trending down ?new onset acute congestive heart failure vs fluid overload due to nephrotic syndrome ?no evidence of acute ischemia, no acute ischemic changes on EKG and normal troponin. ?CTA showed no PE ?cont. IV Lasix twice daily follow BMP /BNP, daily weight, and I's and Os, follow echocardiogram Status post thoracocentesis 1 L of fluid was drained from right-side, fluid gm stain no growth so far case d/w Dr. Vera he is agree with above treatment plan. ? ?mild pericardial effusion follow echocardiogram no evidence of tamponade ?sepsis due to right leg cellulitis ?Continue IV meropenem follow 2 set of blood cultures pending, normal WBC will obtain ID consultation previously patient was treated with IV ertapenem due to MRSA, UA positive but no wbc ?well-healed foot wounds continue daily dressing with silver alginate to right foot superficial ulcers ?acute renal injury on chronic kidney disease stage 3 likely related to diabetic nephropathy ?Has nephrotic range proteinuria likely contributing to fluid overload, creatinine remains stable, follow BMP closely while being diuresed, obtain nephrology ?diabetes mellitus ?Continue diabetic diet Lantus and insulin sliding scale ?hypertension ?On Norvasc 5 mg daily, lisinopril held due to MYNOR, few high blood pressure readings will discuss antihypertensive with Nephrology Headache mild nausea vomiting likely due to infection will treat with antiemetics and analgesics. Add cough syrup for dry cough ? DVT prophylaxis with Xarelto Quality Stroke Does the patient have a stroke diagnosis?: No VTE Prior VTE?: No VTE Risk Level:: Medical - moderate - high VTE Device Contraindication: Patient Refused VTE Drug Contraindication: N/A - Med Ordered
[2021-01-15 15:52] LABS: Glucose, Whole Blood 83 mg/dL (60-115)
--- NOTE | 2021-01-15 16:21 | MHC.CM.PN ---
CM MET WITH PT WHO REPORTS SHE LIVES WITH HER [place] WHO IS ALSO HER BEHAVIORAL SCIENTIST PT REPORTS SHE HAS DAILY BEHAVIORAL SCIENTIST HOURS AND NO OTHER SERVICES PT REPORTS SHE USES A WHEEL CHAIR FOR MOBILITY PT STATES SHE HAS A HCP ALREADY NAMING HER BROTHER HER AGENT. COPY REQUESTED PT REPORTS HER PCP IS ARMANI CHATMAN AT [facility]. IMM DELIVERED VERBALLY PT IS LEGALLY BLIND. CURRENT DC PLAN IS HOME WITH RESUMPTION OF BEHAVIORAL SCIENTIST SERVICES PT WILL SELF ARRANGE TRANSPORTATION
--- NOTE | 2021-01-15 16:51 | PC.NURSE ---
Pt complaining of nausea in morning - IV zofran given. Pt was able to have breakfast. In early afternoon pt vomitted clear /yellow emesis w/undigested food. MD and pt agree may be related to PO fiorcet given for headache. Pt states it did work for headache but nausea remaining- refused gingerale or saltines, states likely will not eat her dinner. Will cont to assess /monitor
[2021-01-15] MEDS: guaiFENesin DM 200/20/10 ML 10 ML SYRUP PO ×2 (17:12→21:34)
[2021-01-15 19:45] LABS: Glucose, Whole Blood 103 mg/dL (60-115)
[2021-01-16] VITALS (8 sets, daily range): BP systolic 137–166; BP diastolic 82–102; PULSE 89–101; RESP 18–20; TEMP 36.1–36.9; O2SAT 95–100
[2021-01-16 07:46] LABS: Glucose, Whole Blood 73 mg/dL (60-115)
[2021-01-16] MEDS: Furosemide 40 MG TABLET PO (07:49)
[2021-01-16] MEDS: Insulin Glargine,Hum.rec.anlog 100 UNIT/ML 10 ML VIAL 14 UNIT SUBCUT (07:49)
[2021-01-16] MEDS: Sertraline HCL 25 MG TABLET PO (07:49)
[2021-01-16] MEDS: oxyCODONE HCl Immed Release 5 MG TABLET PO ×2 (07:49→20:17)
[2021-01-16] MEDS: Rivaroxaban 10 MG TABLET PO (07:49)
[2021-01-16] MEDS: guaiFENesin DM 200/20/10 ML 10 ML SYRUP PO ×3 (07:49→20:17)
[2021-01-16] MEDS: 0.9 % Sodium Chloride Flush 3 ML SYRINGE IVFLUSH ×3 (07:49→20:17)
[2021-01-16] MEDS: amLODIPine Besylate 5 MG TABLET PO (07:52)
[2021-01-16] MEDS: Lidocaine 4 % Patch ADH..PATCH 1 PATCH TRANSDERMA (07:57)
--- NOTE | 2021-01-16 08:11 | P.CONNP_ITS ---
History of Present Illness Reason for Consult Consult date: 01/16/21 Chief Complaint Chief complaint: Acute chf/sepsis/cellulitis Review of Systems Review of Systems General? headache ,no dizziness, no fever chills.? CVS no chest pain, no palpitation.? Respiratory? cough, nonproductive, shortness of breath improving.? Gastrointestinal nausea, vomiting, no abdominal pain Yes all other systems are reviewed and are negative Yes all other systems are reviewed and are negative Constitutional: Reports no additional constitutional complaints Eyes: Reports no additional eye complaints Denies dizziness Cardiovascular: Reports no additional cardiovascular complaints Respiratory: Reports as per HPI Gastrointestinal: Reports no additional gastrointestinal complaints Musculoskeletal: Reports no additional musculoskeletal complaints Skin/Breast: Denies rash Reports system reviewed and no additional complaints, except as documented, Denies dizziness and Denies Sensory deficit (Neuro) Psychiatric: Denies anxiety PMFSH Past Medical History Medical History Asthma Back pain Blind right eye Bone infection Cellulitis and abscess of foot Depression with anxiety Diabetes Diabetic retinopathy DM foot ulcer Essential hypertension HTN (hypertension) Migraine Osteomyelitis test positive Severe anemia Type 2 diabetes mellitus with hyperglycemia, with long-term current use of insulin Family History Family History Mother Coronary artery disease Myocardial infarction Stroke Diabetes mellitus Father Myocardial infarction Pertinent family history: strong family history of diabetes and coronary artery disease Surgical History Surgical History History of transmetatarsal amputation of foot S/P transmetatarsal amputation of foot Social History Social History Household Members: Significant Other Household Members Other:: Sister, [id number], nephew Housing: Apartment Do you presently have visiting nurse or other home services: Yes ([employer] services) Alcohol intake: never Patient Tobacco Use Status: Never used Tobacco e-Cigarette/Vaping Use: Never Used Second Hand Smoke Exposure: No Use of substances other than those prescribed or required for medical reasons: No Currently Displaying Signs/Symptoms of Drug Intoxication Withdrawal: No Have you been hit, kicked, punched, or otherwise hurt by someone within the past year? If so, by whom?: No Do you feel safe in your current relationship?: Yes Is there a partner from a previous relationship who is making you feel unsafe no w?: No Are you made to feel afraid or neglected: No Buddhism Healthcare Practices: Does not take blood Advance Directives: No Advance Directives Information Provided: No Do you have thoughts of harming others: None Do you have a plan to hurt others: No Plan Recently lost weight without trying: Unsure How much weight loss: Unsure Eating poorly because of decreased appetite: No Nutrition screen score: 4 Nutrition Risks: No Nutritional Risk Patient : No : No Poor oral hygiene: No service: No Current occupational status: unemployed and disabled Gender identity: Female Meds Allergies Allergy/AdvReac Type Severity Reaction Status Date / Time morphine [MORPHINE] Allergy Intermediate Itching Verified 01/14/21 07:31 Active Medications: Current Medications Acetaminophen (Acetaminophen 325 Mg Tablet) 650 mg PO Q6H PRN PRN Reason: Pain, Mild (Pain Scale 1-3) Last Admin: 01/14/21 19:25 Dose: 650 mg Documented by: Acetaminophen/Butalbital/Caffeine (Butalb/Acetamin/Caff 50/325/40 Tablet) 1 tab PO Q6H PRN PRN Reason: Headache Last Admin: 01/15/21 10:53 Dose: 1 tab Documented by: Amlodipine Besylate (Amlodipine Besylate 5 Mg Tablet) 5 mg PO DAILY [facility]; Protocol Last Admin: 01/16/21 07:52 Dose: 5 mg Documented by: Dextrose (Dextrose 50 % 25 Gm/50 Ml Vial) 25 gm IVPUSH Q15M PRN; Protocol PRN Reason: per Hypoglycemia Standing Ord. Furosemide (Furosemide 40 Mg Tablet) 40 mg PO BID@0900,1800 [facility]; Protocol Last Admin: 01/16/21 07:49 Dose: 40 mg Documented by: Glucose (Glucose Gel 15 Gm Gel..Gram.) 15 gm PO Q15M PRN; Protocol PRN Reason: per Hypoglycemia Standing Ord. Guaifenesin/Dextromethorphan (Guaifenesin Dm 200/20/10 Ml 10 Ml Syrup) 10 ml PO Q6H [facility] Last Admin: 01/16/21 07:49 Dose: 10 ml Documented by: Meropenem 1 gm/ Sodium (Chloride) 100 mls @ 100 mls/hr IV Q8H [facility] Last Infusion: 01/16/21 05:04 Dose: Infused Documented by: Insulin Glargine (Insulin Glargine,Hum.Rec.Anlog 100 Unit/Ml 10 Ml Vial) 14 unit SUBCUT DAILY [facility] Last Admin: 01/16/21 07:49 Dose: 14 unit Documented by: Insulin Human Lispro (Insulin Lispro 100 Unit/Ml 3 Ml Vial) 0 unit SUBCUT QIDACHS [facility]; Protocol Last Admin: 01/16/21 07:48 Dose: Not Given Documented by: Lidocaine (Lidocaine 4 % Patch Adh..Patch) 1 patch TRANSDERMA DAILY [facility]; Protocol Last Admin: 01/16/21 07:57 Dose: 1 patch Documented by: Ondansetron HCl (Ondansetron Hcl 4 Mg/2 Ml Vial) 4 mg IVPUSH Q8H PRN PRN Reason: Nausea and Vomiting Last Admin: 01/15/21 08:40 Dose: 4 mg Documented by: Oxycodone HCl (Oxycodone Hcl Immed Release 5 Mg Tablet) 5 mg PO Q6H PRN PRN Reason: Pain, Severe (Pain Scale 7-10) Last Admin: 01/16/21 07:49 Dose: 5 mg Documented by: Pharmacy Consult (Consult Rx Perform Med Rec) 1 each MISCELLANE ONCE PRN PRN Reason: Consult order Rivaroxaban (Rivaroxaban 10 Mg Tablet) 10 mg PO DAILY [facility] Last Admin: 01/16/21 07:49 Dose: 10 mg Documented by: Sertraline HCl (Sertraline Hcl 25 Mg Tablet) 25 mg PO DAILY [facility] Last Admin: 01/16/21 07:49 Dose: 25 mg Documented by: Sodium Chloride (0.9 % Sodium Chloride Flush 3 Ml Syringe) 3 ml IVFLUSH QSHIFT [facility] Last Admin: 01/16/21 07:49 Dose: 3 ml Documented by: Home Medications Medication Instructions Recorded Confirmed Last Taken Type amlodipine 2.5 mg tablet 1 tab PO DAILY 12/07/20 01/14/21 Unknown History empagliflozin 10 mg tablet 1 tab PO QAM 12/07/20 01/14/21 Unknown History (Jardiance) insulin aspart U-100 100 unit/mL See Protocol SUBCUT DIRECTED PRN 12/07/20 01/14/21 Unknown History (3 mL) subcutaneous pen (Novolog Flexpen U-100 Insulin aspart) lisinopril 20 mg tablet 1 tab PO DAILY 12/07/20 01/14/21 Unknown History sertraline 25 mg tablet 1 tab PO DAILY 12/07/20 01/14/21 Unknown History Physical Exam Vital Signs: Last Vital Signs Temp 98.4 F 01/16/21 07:24 Pulse 101 H 01/16/21 07:24 Resp 20 01/16/21 07:24 BP 166/102 H 01/16/21 07:52 Pulse Ox 98 01/16/21 07:24 Oxygen Flow Rate 2 01/14/21 04:33 Body Mass Index 32.3 Const Other: female couhging, in pain, short of breath Nutritional Appearance: average body habitus Orientation/consciousness: oriented to person and patient oriented x3 Limitations: no limitations HENMT Head: Yes normal to inspection Ears: external ears normal General nose exam: Normal external nose present Mouth: Normal oral and palatal mucosa present and oropharynx normal Throat: Yes posterior oropharynx normal Eyes General: appearance normal, both eyes and all related structures Neck Other: supple Neck: Yes normal visual inspection Chest Chest palpation & inspection: normal inspection of the chest Resp Other: tachypnic Auscultation: clear to auscultation bilaterally Cardio Jugular venous distension: no JVD Rate: regular rate Rhythm: regular rhythm Heart sounds: S1 normal heart sound present and S2 normal heart sound present GI Inspection: Yes normal to inspection Palpation (GI): Soft to palpation, nontender and No hepatosplenomegaly present Auscultation: normal bowel sounds General: Yes no CVA tenderness Back/Spine/Pelvis Back: no CVA tenderness Skin General skin exam: no rashes or lesions noted Neuro General: oriented to person and patient oriented x3 Cranial nerves: Yes CN's II-XII intact bilaterally Motor exam (neuro): 5/5 motor strength present throughout Sensory Exam: No Sensory deficit (Neuro) Extrem Other: right foot amputation Psych Appearance: grossly normal Results Lab Results Result Diagrams: 01/15/21 09:21 01/15/21 09:18 Lab results: Chemistry 01/14/21 01/15/21 09:35 09:18 Sodium 136 130 L Potassium 4.0 D 3.4 Carbon Dioxide 21 L 21 L BUN 21 H 22 H Creatinine 1.43 H 1.59 H Calcium 7.1 L 6.9 L Hematology 01/14/21 01/15/21 05:50 09:21 WBC 8.0 3.3 L Hgb 9.2 L 8.3 L Plt Count 301 179 D Urinalysis 01/14/21 12:49 Urine Color YELLOW Urine Appearance CLEAR Urine pH 7.5 Ur Specific [place] 1.020 Urine Protein 3+ H Urine Glucose (UA) 500 H Urine Ketones NEG Urine Blood 2+ H Urine Nitrite NEG Ur Leukocyte Esterase NEG Urine RBC 5-9 H Urine WBC 1-4 Ur Squamous Epith Cells TRACE Assessment and Plan (1) Sepsis: Status: Acute (2) Cellulitis: Status: Acute (3) Pleural effusion: Status: Acute (4) Generalized edema: Status: Acute (5) CHF (congestive heart failure): Qualifiers: Heart failure chronicity: acute Heart failure type: unspecified Qualified Code(s): I50.9 - Heart failure, unspecified Status: Acute (6) Acute worsening of stage 3 chronic kidney disease: Status: Acute 30-year-old female with past medical history of uncontrolled diabetes mellitus last hemoglobin A1c 10.7 with retinopathy and legally blind, history of hypertension, history of osteomyelitis status post right transmetatarsal amputation and left foot toe amputations, recently discharged from [facility] on IV antibiotics for foot infection, patient finished course of IV ertapenem and presented to [facility] due to symptoms of shortness of breath of couple? weeks associated with chest discomfort, cough feeling hot and cold today in the emergency room patient noted to have sepsis likely due to right leg cellulitis as well as acute congestive heart failure with elevated BP and P, bilateral pleural effusion and mild pericardial effusions. ?Anasarca ?Feels better this a.m. less shortness of breath 1.5 L negative, BNP trending down ?new onset acute congestive heart failure vs fluid overload due to nephrotic syndrome ?no evidence of acute ischemia, no acute ischemic changes on EKG and normal troponin. ?CTA showed no PE ?cont. IV Lasix twice daily follow BMP /BNP, daily weight, and I's and Os, follow echocardiogram Status post thoracocentesis 1 L of fluid was drained from right-side, fluid gm stain no growth so far case d/w Dr. Vera he is agree with above treatment plan. ? ?mild pericardial effusion follow echocardiogram no evidence of tamponade ?sepsis due to right leg cellulitis ?Continue IV meropenem follow 2 set of blood cultures pending, normal WBC will obtain ID consultation previously patient was treated with IV ertapenem due to MRSA, UA positive but no wbc ?well-healed foot wounds continue daily dressing with silver alginate to right foot superficial ulcers ?acute renal injury on chronic kidney disease stage 3 likely related to diabetic nephropathy ?Has nephrotic range proteinuria likely contributing to fluid overload, creatinine up today would give diuretic holiday and check post void residuals control BP with increased dose of amlodipine 10 mg hold ACEi and start spironolactone 50 Procedures Date of Service Date of Service: 01/16/21
[2021-01-16] MEDS: ondansetron HCL 4 MG/2 ML VIAL IVPUSH (10:25)
[2021-01-16] MEDS: Isosorbide Mononitrate 30 MG TAB.ER.24H PO (10:28)
--- NOTE | 2021-01-16 10:43 | P.PNIM_ITS ---
Subjective Subjective Date of Service: 01/16/21 Interval History: Been being followed for generalized edema feeling better this morning complaining of pain at site of right thoracocentesis, no fevers, no chills, no other acute issues overnight. Review of Systems General?no headache ,no dizziness, no fever chills.? CVS no chest pain, no palpitation.? Respiratory dry cough, nonproductive,no shortness of breath .? Gastrointestinal?no nausea,no vomiting, no abdominal pain Yes all other systems are reviewed and are negative Physical Exam Vital Signs: Vital Signs: Last Vital Signs Temp 98.4 F 01/16/21 07:24 Pulse 101 H 01/16/21 07:24 Resp 20 01/16/21 07:24 BP 147/85 H 01/16/21 10:28 Pulse Ox 98 01/16/21 07:24 Oxygen Flow Rate 2 01/14/21 04:33 Body Mass Index 32.3 General awake, shantel rt,no acute distre ss.? HEENT opaque right cornea, lega lly blind Neck sup ple,no JVD. CVS? r egular rate rhythm , tachycardia Resp iratory lungs? dim inished breath [place] nd bilaterally, no respiratory distr ess, no wheeze, no crackles Gastroin testinal abdomen s oft, nontender, alejandra wel sounds audible , no guarding , no rigidity. Extremi ties left foot mis sing 1st and 5th t oes, right foot tr ansmetatarsal ampu tation? superficia l ulceration at me dial and lateral m argin Neuro nonfoc al , speech clear. Skin no rash Psyc h appropriate affe ct Objective Data Active Medications Acetaminophen (Acetaminophen 325 Mg Tablet) 650 mg PO Q6H PRN PRN Reason: Pain, Mild (Pain Scale 1-3) Last Admin: 01/14/21 19:25 Dose: 650 mg Documented by: DANY Acetaminophen/Butalbital/Caffeine (Butalb/Acetamin/Caff 50/325/40 Tablet) 1 tab PO Q6H PRN PRN Reason: Headache Last Admin: 01/15/21 10:53 Dose: 1 tab Documented by: ANASTASIIA Amlodipine Besylate (Amlodipine Besylate 5 Mg Tablet) 5 mg PO DAILY [facility]; Protocol Last Admin: 01/16/21 07:52 Dose: 5 mg Documented by: HAKAN Dextrose (Dextrose 50 % 25 Gm/50 Ml Vial) 25 gm IVPUSH Q15M PRN; Protocol PRN Reason: per Hypoglycemia Standing Ord. Furosemide (Furosemide 40 Mg Tablet) 40 mg PO BID@0900,1800 [facility]; Protocol Last Admin: 01/16/21 07:49 Dose: 40 mg Documented by: HAKAN Glucose (Glucose Gel 15 Gm Gel..Gram.) 15 gm PO Q15M PRN; Protocol PRN Reason: per Hypoglycemia Standing Ord. Guaifenesin/Dextromethorphan (Guaifenesin Dm 200/20/10 Ml 10 Ml Syrup) 10 ml PO Q6H [facility] Last Admin: 01/16/21 07:49 Dose: 10 ml Documented by: HAKAN Meropenem 1 gm/ Sodium (Chloride) 100 mls @ 100 mls/hr IV Q8H [facility] Last Infusion: 01/16/21 05:04 Dose: 0 mls/hr Documented by: NALINI Insulin Glargine (Insulin Glargine,Hum.Rec.Anlog 100 Unit/Ml 10 Ml Vial) 14 unit SUBCUT DAILY [facility] Last Admin: 01/16/21 07:49 Dose: 14 unit Documented by: HAKAN Insulin Human Lispro (Insulin Lispro 100 Unit/Ml 3 Ml Vial) 0 unit SUBCUT QIDACHS [facility]; Protocol Last Admin: 01/16/21 07:48 Dose: Not Given Documented by: HAKAN Non-Admin Reason: No Insulin Coverage Isosorbide Mononitrate (Isosorbide Mononitrate 30 Mg Tab.Er.24h) 30 mg PO DAILY [facility]; Protocol Last Admin: 01/16/21 10:28 Dose: 30 mg Documented by: HAKAN Lidocaine (Lidocaine 4 % Patch Adh..Patch) 1 patch TRANSDERMA DAILY [facility]; Protocol Last Admin: 01/16/21 07:57 Dose: 1 patch Documented by: HAKAN Ondansetron HCl (Ondansetron Hcl 4 Mg/2 Ml Vial) 4 mg IVPUSH Q8H PRN PRN Reason: Nausea and Vomiting Last Admin: 01/16/21 10:25 Dose: 4 mg Documented by: HAKAN Oxycodone HCl (Oxycodone Hcl Immed Release 5 Mg Tablet) 5 mg PO Q6H PRN PRN Reason: Pain, Severe (Pain Scale 7-10) Last Admin: 01/16/21 07:49 Dose: 5 mg Documented by: HAKAN Pharmacy Consult (Consult Rx Perform Med Rec) 1 each MISCELLANE ONCE PRN PRN Reason: Consult order Rivaroxaban (Rivaroxaban 10 Mg Tablet) 10 mg PO DAILY [facility] Last Admin: 01/16/21 07:49 Dose: 10 mg Documented by: HAKAN Sertraline HCl (Sertraline Hcl 25 Mg Tablet) 25 mg PO DAILY [facility] Last Admin: 01/16/21 07:49 Dose: 25 mg Documented by: HAKAN Sodium Chloride (0.9 % Sodium Chloride Flush 3 Ml Syringe) 3 ml IVFLUSH QSHIFT [facility] Last Admin: 01/16/21 07:49 Dose: 3 ml Documented by: HAKAN Labs CBC & Chem 7: 01/15/21 09:21 01/15/21 09:18 Labs: Laboratory Results - last 24 hr 01/15/21 01/15/21 01/15/21 11:00 15:49 19:34 POC Glucose 94 83 103 01/16/21 07:35 POC Glucose 73 Microbiology Microbiology Results: Microbiology 01/14/21 10:27 Blood Culture - Preliminary Blood - Venous Gram positive cocci Gram negative laurie 01/14/21 11:32 Blood Culture - Preliminary Blood - Venous Gram positive cocci Gram negative laurie 01/14/21 15:23 Gram Stain - Final Thoracentesis Fluid Anaerobic Culture - Preliminary No growth to date. Body Fluid Culture - Preliminary No growth after 1 day Assessment and Plan (1) Acute worsening of stage 3 chronic kidney disease: Status: Acute (2) Generalized edema: Status: Acute (3) Sepsis: Status: Acute (4) Cellulitis: Status: Acute (5) Pleural effusion: Status: Acute Assessment and Plan: 30-year-old female with past medical history of uncontrolled diabetes mellitus last hemoglobin A1c 10.7 with retinopathy and legally blind, history of hypertension, history of osteomyelitis status post right transmetatarsal amputation and left foot toe amputations, recently discharged from [facility] on IV antibiotics for foot infection, patient finished course of IV ertapenem and presented to [facility] due to symptoms of shortness of breath of couple? weeks associated with chest discomfort, cough feeling hot and cold today in the emergency room patient noted to have sepsis likely due to right leg cellulitis as well as acute congestive heart failure with elevated BP and P, bilateral pleural effusion and mild pericardial effusions. ?Anasarca ?Feels better,less shortness of breath ?BNP trending down ? new onset acute congestive heart failure vs fluid overload due to nephrotic syndrome, have nephrotic range proteinuria, albumin 2.2, chronically elevated sed rate ?no evidence of acute ischemia, no acute ischemic changes on EKG and normal troponin. ?CTA showed no PE BNP trending down 1684 to 1299,-1.6 liter ?follow echocardiogram Due to rising creatinine Nephro recommend to hold IV diuretic today ?Status post thoracocentesis 1 L of fluid was drained from right-side, fluid gm stain no growth so far ?case d/w Dr. Vera he is agree with above treatment plan. Patient refuses blood draws. ? ?mild pericardial effusion follow echocardiogram no evidence of tamponade ?sepsis due to right leg cellulitis ?Continue IV meropenem day 2,follow 2 set of blood cultures pending, normal WBC will obtain ID consultation previously patient was treated with IV ertapenem due to MRSA, UA positive but no wbc ?well-healed foot wounds continue daily dressing with silver alginate to right foot superficial ulcers ?acute renal injury on chronic kidney disease stage 3 likely related to diabetic nephropathy ?Has nephrotic range proteinuria likely contributing to fluid overload, creatinine trending up , hold diuretic, follow BMP closely Being followed by Nephro ?diabetes mellitus with retinopathy, legally blind and nephropathy last hemoglobin A1c 10.7 Blood sugars stable ?Continue diabetic diet Lantus and insulin sliding scale ?hypertension ?Elevated blood pressures will increase dose of Norvasc to 10mg, and add spironolactone 50 mg as per Nephro recommendation Normocytic anemia likely related to renal disease ?Headache mild nausea vomiting likely due to infection Resolved continue antiemetics and analgesics.? ? DVT prophylaxis with Xarelto Quality Stroke Does the patient have a stroke diagnosis?: No VTE Prior VTE?: No VTE Risk Level:: Medical - moderate - high VTE Device Contraindication: Patient Refused VTE Drug Contraindication: N/A - Med Ordered
[2021-01-16 11:30] LABS: Glucose, Whole Blood 102 mg/dL (60-115)
[2021-01-16] MEDS: diphenhydrAMINE HCL 25 MG TABLET PO ×2 (12:04→22:09)
[2021-01-16] MEDS: Spironolactone 25 MG TABLET 50 MG PO (12:04)
[2021-01-16 16:02] LABS: Glucose, Whole Blood 107 mg/dL (60-115)
[2021-01-16 19:39] LABS: Glucose, Whole Blood 138 mg/dL (60-115)
[2021-01-16] MEDS: Butalb/Acetamin/Caff 50/325/40 TABLET 1 TAB PO (22:08)
--- NOTE | 2021-01-16 22:48 | P.CNID_ITS ---
History of Present Illness Data of Consult Service Date: 01/15/21 Requesting physician: Gildardo Bess Primary Care Provider: Unknown Physician HPI Reason for consult: right leg cellulitis She presents with two days right leg redness and swelling. She has no fever or chilla. She has had TMA. Blood cultures gram positive cocci and gram negative rods x2. Review of Systems Review of Systems: Yes all other systems are reviewed and are negative PMFSH Past Medical History Medical History Asthma Back pain Blind right eye Bone infection Cellulitis and abscess of foot Depression with anxiety Diabetes Diabetic retinopathy DM foot ulcer Essential hypertension HTN (hypertension) Migraine Osteomyelitis test positive Severe anemia Type 2 diabetes mellitus with hyperglycemia, with long-term current use of insulin Family History Family History Mother Coronary artery disease Myocardial infarction Stroke Diabetes mellitus Father Myocardial infarction Surgical History Surgical History History of transmetatarsal amputation of foot S/P transmetatarsal amputation of foot Social History Social History Household Members: Significant Other Household Members Other:: Sister, [id number], nephew Housing: Apartment Do you presently have visiting nurse or other home services: Yes ([employer] [facility]) Alcohol intake: never Patient Tobacco Use Status: Never used Tobacco e-Cigarette/Vaping Use: Never Used Second Hand Smoke Exposure: No Use of substances other than those prescribed or required for medical reasons: No Currently Displaying Signs/Symptoms of Drug Intoxication Withdrawal: No Have you been hit, kicked, punched, or otherwise hurt by someone within the past year? If so, by whom?: No Do you feel safe in your current relationship?: Yes Is there a partner from a previous relationship who is making you feel unsafe no w?: No Are you made to feel afraid or neglected: No [facility] Healthcare Practices: Does not take blood Advance Directives: No Advance Directives Information Provided: No Do you have thoughts of harming others: None Do you have a plan to hurt others: No Plan Recently lost weight without trying: Unsure How much weight loss: Unsure Eating poorly because of decreased appetite: No Nutrition screen score: 4 Nutrition Risks: No Nutritional Risk Patient : No : No Poor oral hygiene: No service: No Current occupational status: unemployed and disabled Gender identity: Female Meds Allergies Allergy/AdvReac Type Severity Reaction Status Date / Time morphine [MORPHINE] Allergy Intermediate Itching Verified 01/14/21 07:31 Active Medications: Current Medications Acetaminophen (Acetaminophen 325 Mg Tablet) 650 mg PO Q6H PRN PRN Reason: Pain, Mild (Pain Scale 1-3) Last Admin: 01/14/21 19:25 Dose: 650 mg Documented by: Acetaminophen/Butalbital/Caffeine (Butalb/Acetamin/Caff 50/325/40 Tablet) 1 tab PO Q6H PRN PRN Reason: Headache Last Admin: 01/16/21 22:08 Dose: 1 tab Documented by: Amlodipine Besylate (Amlodipine Besylate 10 Mg Tablet) 10 mg PO DAILY [facility]; Protocol Dextrose (Dextrose 50 % 25 Gm/50 Ml Vial) 25 gm IVPUSH Q15M PRN; Protocol PRN Reason: per Hypoglycemia Standing Ord. Diphenhydramine HCl (Diphenhydramine Hcl 25 Mg Tablet) 25 mg PO Q6H PRN PRN Reason: Itching Last Admin: 01/16/21 22:09 Dose: 25 mg Documented by: Glucose (Glucose Gel 15 Gm Gel..Gram.) 15 gm PO Q15M PRN; Protocol PRN Reason: per Hypoglycemia Standing Ord. Guaifenesin/Dextromethorphan (Guaifenesin Dm 200/20/10 Ml 10 Ml Syrup) 10 ml PO Q6H [facility] Last Admin: 01/16/21 20:17 Dose: 10 ml Documented by: Meropenem 1 gm/ Sodium (Chloride) 100 mls @ 100 mls/hr IV Q8H [facility] Last Infusion: 01/16/21 21:24 Dose: Infused Documented by: Insulin Glargine (Insulin Glargine,Hum.Rec.Anlog 100 Unit/Ml 10 Ml Vial) 14 unit SUBCUT DAILY [facility] Last Admin: 01/16/21 07:49 Dose: 14 unit Documented by: Insulin Human Lispro (Insulin Lispro 100 Unit/Ml 3 Ml Vial) 0 unit SUBCUT QIDACHS [facility]; Protocol Last Admin: 01/16/21 20:37 Dose: Not Given Documented by: Isosorbide Mononitrate (Isosorbide Mononitrate 30 Mg Tab.Er.24h) 30 mg PO DAILY [facility]; Protocol Last Admin: 01/16/21 10:28 Dose: 30 mg Documented by: Lidocaine (Lidocaine 4 % Patch Adh..Patch) 1 patch TRANSDERMA DAILY [facility]; Protocol Last Admin: 01/16/21 07:57 Dose: 1 patch Documented by: Ondansetron HCl (Ondansetron Hcl 4 Mg/2 Ml Vial) 4 mg IVPUSH Q8H PRN PRN Reason: Nausea and Vomiting Last Admin: 01/16/21 10:25 Dose: 4 mg Documented by: Oxycodone HCl (Oxycodone Hcl Immed Release 5 Mg Tablet) 5 mg PO Q6H PRN PRN Reason: Pain, Severe (Pain Scale 7-10) Last Admin: 01/16/21 20:17 Dose: 5 mg Documented by: Pharmacy Consult (Consult Rx Perform Med Rec) 1 each MISCELLANE ONCE PRN PRN Reason: Consult order Rivaroxaban (Rivaroxaban 10 Mg Tablet) 10 mg PO DAILY [facility] Last Admin: 01/16/21 07:49 Dose: 10 mg Documented by: Sertraline HCl (Sertraline Hcl 25 Mg Tablet) 25 mg PO DAILY [facility] Last Admin: 01/16/21 07:49 Dose: 25 mg Documented by: Sodium Chloride (0.9 % Sodium Chloride Flush 3 Ml Syringe) [facility] Last Admin: 01/16/21 20:17 Dose: 3 ml Documented by: Spironolactone (Spironolactone 25 Mg Tablet) 50 mg PO DAILY [facility]; Protocol Last Admin: 01/16/21 12:04 Dose: 50 mg Documented by: Home Medications Medication Instructions Recorded Confirmed Last Taken Type amlodipine 2.5 mg tablet 1 tab PO DAILY 12/07/20 01/14/21 Unknown History empagliflozin 10 mg tablet 1 tab PO QAM 12/07/20 01/14/21 Unknown History (Jardiance) insulin aspart U-100 100 unit/mL See Protocol SUBCUT DIRECTED PRN 12/07/20 01/14/21 Unknown History (3 mL) subcutaneous pen (Novolog Flexpen U-100 Insulin aspart) lisinopril 20 mg tablet 1 tab PO DAILY 12/07/20 01/14/21 Unknown History sertraline 25 mg tablet 1 tab PO DAILY 12/07/20 01/14/21 Unknown History Physical Exam Vital Signs: Vital Signs: Last Vital Signs Temp 96.9 F 01/16/21 18:54 Pulse 91 01/16/21 18:54 Resp 20 01/16/21 18:54 BP 156/85 H 01/16/21 18:54 Pulse Ox 96 01/16/21 18:54 Oxygen Flow Rate 2 01/14/21 04:33 Body Mass Index 32.3 Const: General: cooperative Eyes: General: appearance normal, both eyes and all related structures Direct Ophthalmoscopy: normal light reflex Resp: Effort & Inspection: normal respiratory effort Cardio: Rate: regular rate Rhythm: regular rhythm GI: Palpation (GI): Soft to palpation and nontender Skin: General skin exam: no rashes or lesions noted Extrem: Other: reddened right lower extremity Results Labs CBC & Chem 7: 01/15/21 09:21 01/15/21 09:18 Microbiology Microbiology Results: Microbiology 01/15/21 09:21 Blood - Venous Blood Culture - Preliminary No growth after 24 hours. 01/15/21 09:20 Blood - Venous Blood Culture - Preliminary No growth after 24 hours. 01/14/21 11:32 Blood - Venous Blood Culture - Preliminary Gram positive cocci Gram negative laurie 01/14/21 10:27 Blood - Venous Blood Culture - Preliminary Gram positive cocci Gram negative laurie 01/14/21 15:23 Thoracentesis Fluid Gram Stain - Final 01/14/21 15:23 Thoracentesis Fluid Anaerobic Culture - Preliminary No growth to date. 01/14/21 15:23 Thoracentesis Fluid Body Fluid Culture - Preliminary No growth after 1 day Assessment and Plan (1) Cellulitis: Status: Acute She has redness leg. She may have gram negative or gram positive. She may have contamination as well. (2) Sepsis: Status: Acute Would continue Merem at this time Await cultures Duration to be determined
[2021-01-17] VITALS (10 sets, daily range): BP systolic 129–180; BP diastolic 71–92; PULSE 70–140; RESP 18–20; TEMP 36.1–37.1; O2SAT 95–100
--- NOTE | 2021-01-17 | ECG_ITS ---
Test Reason : CHEST PAIN Blood Pressure : / mmHG Vent. Rate : 137 BPM Atrial Rate : 137 BPM P-R Int : 130 ms QRS Dur : 126 ms QT Int : 368 ms P-R-T Axes : 045 021 039 degrees QTc Int : 555 ms Sinus tachycardia Right bundle branch block Abnormal ECG When compared with ECG of 14-JAN-2021 05:57, No significant change was found Referred By: Babita Lopez Electronically Signed By:JEREMÍAS SANDOVAL MD
[2021-01-17] MEDS: diphenhydrAMINE HCL 25 MG TABLET PO ×2 (03:36→19:55)
[2021-01-17] MEDS: oxyCODONE HCl Immed Release 5 MG TABLET PO ×2 (03:36→15:41)
[2021-01-17] MEDS: ondansetron HCL 4 MG/2 ML VIAL IVPUSH (05:39)
--- NOTE | 2021-01-17 06:19 | P.EN_ITS ---
Event Note Date of Service: 01/17/21 Event Note: Received message from nurse that patient is complaining of chest d [email or web address] is all over, she is tachypneic and tachycardic. On my exam patient has her eyes closed, moaning, reports that she is having an anxiety attack, she is reporting sharp reproducible chest pain, no shortness of breath, satting 94 to 96%. Will obtain EKG, patient initially refuse to a loss to draw troponin, but we are going to try the PICC line. [facility]
[2021-01-17] MEDS: LORazepam 2 MG/ML VIAL 0.5 MG IVPUSH (06:30)
--- NOTE | 2021-01-17 06:43 | PC.NURSE ---
Pt reporting reproducible chest pain and shortness of breath at 0600. Pt states she thinks shes having an anxiety attack. O2 sat stable at 95% on 4L NC. MD to bedside. EKG and troponin ordered. 1x dose of ativan. Pt resting comfortably after Ativan.
[2021-01-17 07:29] LABS: Glucose, Whole Blood 58 mg/dL (60-115)
[2021-01-17 07:42] LABS: Glucose, Whole Blood 69 mg/dL (60-115)
[2021-01-17] MEDS: 0.9 % Sodium Chloride Flush 3 ML SYRINGE IVFLUSH ×3 (08:30→19:55)
[2021-01-17] MEDS: Spironolactone 25 MG TABLET 50 MG PO (08:30)
[2021-01-17] MEDS: Isosorbide Mononitrate 30 MG TAB.ER.24H PO (08:30)
[2021-01-17] MEDS: guaiFENesin DM 200/20/10 ML 10 ML SYRUP PO ×2 (08:30→15:42)
[2021-01-17] MEDS: Sertraline HCL 25 MG TABLET PO (08:30)
[2021-01-17] MEDS: Rivaroxaban 10 MG TABLET PO (08:30)
[2021-01-17] MEDS: amLODIPine Besylate 10 MG TABLET PO (08:31)
[2021-01-17] MEDS: Lidocaine 4 % Patch ADH..PATCH 1 PATCH TRANSDERMA (08:31)
[2021-01-17 08:54] LABS: Glucose, Whole Blood 90 mg/dL (60-115)
[2021-01-17 10:31] LABS: Glucose, Whole Blood 86 mg/dL (60-115)
--- NOTE | 2021-01-17 11:20 | HO.PM.IMPN ---
Subjective Subjective Date of Service: 01/17/21 Interval History: seen and examined this AM reports she had a panic attack this AM denies current chest pain or sob still refusing labs and peripheral IV (explained to her that we cannot use her PICC line for the time being due to abnormal positioning Physical Exam Vital Signs: Vital Signs: Last Vital Signs Temp 98.1 F 01/17/21 07:16 Pulse 127 H 01/17/21 08:30 Resp 19 01/17/21 07:16 BP 180/92 H 01/17/21 08:30 Pulse Ox 95 01/17/21 07:16 Oxygen Flow Rate 2 01/14/21 04:33 Body Mass Index 32.3 Const: Other: Gen - awake and alert, eyes closed HEENT - R cornea opaque, no JVD CVS - S1S2, tachy in the 110s Lungs - Dim, no hypoxia or respiratory distress this AM Abd - soft, nt/nd Ext (lower) - 1st and fifth toe ampuations on L; R TMA with superficial ulcer on medial / lateral margin Neuro - aaox;3 moving all 4 limbs equally, speech clear Skin -no Rash Objective Data Active Medications Acetaminophen (Acetaminophen 325 Mg Tablet) 650 mg PO Q6H PRN PRN Reason: Pain, Mild (Pain Scale 1-3) Last Admin: 01/14/21 19:25 Dose: 650 mg Documented by: DANY Acetaminophen/Butalbital/Caffeine (Butalb/Acetamin/Caff 50/325/40 Tablet) 1 tab PO Q6H PRN PRN Reason: Headache Last Admin: 01/16/21 22:08 Dose: 1 tab Documented by: JASMINA Amlodipine Besylate (Amlodipine Besylate 10 Mg Tablet) 10 mg PO DAILY [facility]; Protocol Last Admin: 01/17/21 08:31 Dose: 10 mg Documented by: KESHAV Dextrose (Dextrose 50 % 25 Gm/50 Ml Vial) 25 gm IVPUSH Q15M PRN; Protocol PRN Reason: per Hypoglycemia Standing Ord. Diphenhydramine HCl (Diphenhydramine Hcl 25 Mg Tablet) 25 mg PO Q6H PRN PRN Reason: Itching Last Admin: 01/17/21 03:36 Dose: 25 mg Documented by: JASMINA Glucose (Glucose Gel 15 Gm Gel..Gram.) 15 gm PO Q15M PRN; Protocol PRN Reason: per Hypoglycemia Standing Ord. Guaifenesin/Dextromethorphan (Guaifenesin Dm 200/20/10 Ml 10 Ml Syrup) 10 ml PO Q6H [facility] Last Admin: 01/17/21 08:30 Dose: 10 ml Documented by: KESHAV Hydroxyzine HCl (Hydroxyzine Hcl 25 Mg Tablet) 25 mg PO Q6H PRN PRN Reason: anxiety/restlessness Meropenem 1 gm/ Sodium (Chloride) 100 mls @ 100 mls/hr IV Q8H [facility] Last Infusion: 01/17/21 04:45 Dose: 0 mls/hr Documented by: JASMINA Insulin Glargine (Insulin Glargine,Hum.Rec.Anlog 100 Unit/Ml 10 Ml Vial) 10 unit SUBCUT DAILY [facility] Insulin Human Lispro (Insulin Lispro 100 Unit/Ml 3 Ml Vial) 0 unit SUBCUT QIDACHS [facility]; Protocol Last Admin: 01/17/21 07:55 Dose: Not Given Documented by: KESHAV Non-Admin Reason: No Insulin Coverage Isosorbide Mononitrate (Isosorbide Mononitrate 30 Mg Tab.Er.24h) 30 mg PO DAILY [facility]; Protocol Last Admin: 01/17/21 08:30 Dose: 30 mg Documented by: KESHAV Lidocaine (Lidocaine 4 % Patch Adh..Patch) 1 patch TRANSDERMA DAILY [facility]; Protocol Last Admin: 01/17/21 08:31 Dose: 1 patch Documented by: KESHAV Ondansetron HCl (Ondansetron Hcl 4 Mg/2 Ml Vial) 4 mg IVPUSH Q8H PRN PRN Reason: Nausea and Vomiting Last Admin: 01/17/21 05:39 Dose: 4 mg Documented by: JASMINA Oxycodone HCl (Oxycodone Hcl Immed Release 5 Mg Tablet) 5 mg PO Q6H PRN PRN Reason: Pain, Severe (Pain Scale 7-10) Last Admin: 01/17/21 03:36 Dose: 5 mg Documented by: JASMINA Pharmacy Consult (Consult Rx Perform Med Rec) 1 each MISCELLANE ONCE PRN PRN Reason: Consult order Rivaroxaban (Rivaroxaban 10 Mg Tablet) 10 mg PO DAILY [facility] Last Admin: 01/17/21 08:30 Dose: 10 mg Documented by: KESHAV Sertraline HCl (Sertraline Hcl 25 Mg Tablet) 25 mg PO DAILY [facility] Last Admin: 01/17/21 08:30 Dose: 25 mg Documented by: KESHAV Sodium Chloride (0.9 % Sodium Chloride Flush 3 Ml Syringe) 3 ml IVFLUSH QSHIFT [facility] Last Admin: 01/17/21 08:30 Dose: 3 ml Documented by: KESHAV Spironolactone (Spironolactone 25 Mg Tablet) 50 mg PO DAILY [facility]; Protocol Last Admin: 01/17/21 08:30 Dose: 50 mg Documented by: KESHAV Labs CBC & Chem 7: 01/15/21 09:21 01/15/21 09:18 Labs: Laboratory Results - last 24 hr 01/16/21 01/16/21 01/16/21 11:21 15:57 19:33 POC Glucose 102 107 138 H 01/17/21 01/17/21 01/17/21 07:18 07:39 08:33 POC Glucose 58 L* 69 90 01/17/21 10:28 POC Glucose 86 Microbiology Microbiology Results: Microbiology 01/14/21 15:23 Gram Stain - Final Thoracentesis Fluid Anaerobic Culture - Preliminary No growth to date. Body Fluid Culture - Final No growth after 2 days 01/14/21 10:27 Blood Culture - Final Blood - Venous Staphylococcus sciuri Acinetobacter baumannii 01/14/21 11:32 Blood Culture - Final Blood - Venous Staphylococcus sciuri Acinetobacter baumannii 01/15/21 09:21 Blood Culture - Preliminary Blood - Venous No growth after 24 hours. 01/15/21 09:20 Blood Culture - Preliminary Blood - Venous No growth after 24 hours. Assessment and Plan (1) Sepsis: Status: Acute Assessment and Plan: 30-year-old female with past medical history of uncontrolled diabetes mellitus last hemoglobin A1c 10.7 with retinopathy and legally blind, history of hypertension, history of osteomyelitis status post right transmetatarsal amputation and left foot toe amputations, recently discharged from [facility] on IV antibiotics for foot infection, patient finished course of IV ertapenem and presented to [facility] due to symptoms of shortness of breath of couple? weeks associated with chest discomfort, cough feeling hot and cold today in the emergency room patient noted to have sepsis likely due to right leg cellulitis as well as acute congestive heart failure with elevated BP and P, bilateral pleural effusion and mild pericardial effusions. 1. Sepsis secondary to RLE cellutils 1a. Polymicrobial bacteremia (see details under micro) -- repeat blood cx negative at 24 hours Currently on Merrem -- to continue for now; ID f/u for antibiotic guidance 2. Generalized Anasarca cardiac vs renal as primary cause see details below 3. Question Acute CHF (diastolic vs systolic) work-up in progress Echo ordered diuretics on hold last 48 hours as SCr increased and patient is not allowing blood draws (see details for PICC line below) once labs done, to reassess IV diuretics cardiology on board 4. MYNOR on CKD 3 due to diabetic nephropathy nephrotic range proteinuria -- contributing to anasarca nephrology on board will resume diuretics once renal function checked 5. Pericardial effusion echo pending but no clinical evidence of tamponade 6. DM with diabetic retinopathy -- is legally blind episodes of hypoglycemia this AM decrease Lantus to 10 units qAM -- encouraed oral intake sliding scale 7. Uncontrolled HTN norvasc increased to 10mg and Aldactone added 8. Normocytic anemia likely related to renal disease 9. MENDIOLA resolved, probably secondary to uncontrolled BP Full Code DVT pptx, Xarelto Quality Stroke Does the patient have a stroke diagnosis?: No VTE Prior VTE?: No VTE Risk Level:: Medical - moderate - high VTE Device Contraindication: Patient Refused VTE Drug Contraindication: N/A - Med Ordered
--- NOTE | 2021-01-17 11:36 | PM.PNCARD ---
Subjective Subjective Date of Service: 01/17/21 <PAOLO Phillips - Last Filed: 01/17/21 11:58> 01/17/21 <Micky Cotton MD - Last Filed: 01/17/21 12:42> Principal diagnosis: CHF, pleural effusion, MYNOR on CKD <PAOLO Phillips - Last Filed: 01/17/21 11:58> Interval history: Cardiology follow up for CHF. Seen at 0825. Today she reports having sharp chest pains and sob this am which she related to having a panic attack. She reports having these in the past. She no longer has the chest pain. Breathing feels normal with the use of O2 with cannula. No cough. No pain with deep inspiration. Slept with HOB mostly flat. No palpitation, dizziness. Legs look normal to her. <PAOLO Phillips - Last Filed: 01/17/21 11:58> Review of Systems Review of Systems as above <PAOLO Phillips - Last Filed: 01/17/21 11:58> Physical Exam Vital Signs: Last Vital Signs Temp 98.1 F 01/17/21 07:16 Pulse 127 H 01/17/21 08:30 Resp 19 01/17/21 07:16 BP 180/92 H 01/17/21 08:30 Pulse Ox 95 01/17/21 07:16 Oxygen Flow Rate 2 01/14/21 04:33 Body Mass Index 32.3 <PAOLO Phillips - Last Filed: 01/17/21 11:58> Const General: cooperative, no acute distress, alert and awake <PAOLO Phillips - Last Filed: 01/17/21 11:58> Orientation/consciousness: patient oriented x3 <PAOLO Phillips - Last Filed: 01/17/21 11:58> Eyes Other: corneal cloudiness right eye <PAOLO Phillips Last Filed: 01/17/21 11:58> Neck Neck: Yes normal visual inspection <PAOLO Phillips - Last Filed: 01/17/21 11:58> Resp Effort & Inspection: normal respiratory effort, able to speak in complete sentences and not labored <Nguyen Brownlee NPC - Last Filed: 01/17/21 11:58> Auscultation: clear to auscultation bilaterally, crackles (faint right lower lobe, dim left lower lobe), no rales, no rhonchi and no wheezes <Nguyen Brownlee NPC - Last Filed: 01/17/21 11:58> Cardio Jugular venous distension: JVD present <Nguyen Brownlee [facility] - Last Filed: 01/17/21 11:58> Palpation: normal PMI <Nguyen Brownlee [facility] - Last Filed: 01/17/21 11:58> Rate: regular rate <Nguyen Brownlee [facility] - Last Filed: 01/17/21 11:58> Rhythm: regular rhythm <Nguyen Brownlee [facility] - Last Filed: 01/17/21 11:58> Heart sounds: S1 normal heart sound present and S2 normal heart sound present <Nguyen Brownlee [facility] - Last Filed: 01/17/21 11:58> GI Inspection: Yes normal to inspection <Nguyen Brownlee [facility] - Last Filed: 01/17/21 11:58> Neuro General: patient oriented x3 <Nguyen Brownlee [facility] - Last Filed: 01/17/21 11:58> Extrem Other: trace ankle edema. bilateral transmetatarsal amps. <Nguyen Brownlee NPC - Last Filed: 01/17/21 11:58> Objective Labs and Meds Result diagrams: : 01/15/21 09:21 01/15/21 09:18 <Nguyen Brownlee [facility] - Last Filed: 01/17/21 11:58> Lab results: Laboratory Results - last 24 hr 01/16/21 01/16/21 01/17/21 15:57 19:33 07:18 POC Glucose 107 138 H 58 L* 01/17/21 01/17/21 01/17/21 07:39 08:33 10:28 POC Glucose 69 90 86 <Nguyen Brownlee NP-C - Last Filed: 01/17/21 11:58> Progress Note: A&P Assessment and plan (1) CHF (congestive heart failure): Status: Acute <PAOLO Phillips - Last Filed: 01/17/21 11:58> Assessment and Plan: Admit with sob. CTA chest showed no PE, large bilateral pleural effusion and small pericardial effusion. Had right thoracentesis for 1 liter of clear yellow fluid. BNP 1684. Treated for acute CHF. Was initially started on IV lasix. Has CKD and Cr leidy from 1.43 to 1.59. Lasix was then stopped. Fluid balance neg 3.4liters since admit. She had episode of chest pain/ sob this am which she tells me was a panic attack. Otherwise breathing improved but not at baseline. Wearing O2 with cannula, sat 95% on 4 liters. She is on Aldactone and Imdur which can be continued. Will start on Diovan 40mg bid and Metoprolol tartrate 25mg q 12 hr. Echocardiogram is pending and will help determine type of CHF. She has multiple cardiac risk factors including DM, HTN, HLD, CKD, PAD and will need an ischemic evaluation, likely as outpt. If echo shows reduced EF and wall motion abnromality, then would benefit from cardiac catheterization. Labs for today are still pending - BNP added to am labs. Continue strict I+O monitoring. Close monitoring of electrolyte and kidney function with med adjustments. Recommend repeat CXR to eval left effusion. Consider thoracentesis of remains large. O2 supplement as needed for sat > 90%. We will follow. <PAOLO Phillips - Last Filed: 01/17/21 11:58> Admit with sob. CTA chest showed no PE, large bilateral pleural effusion and small pericardial effusion. Had right thoracentesis for 1 liter of clear yellow fluid. BNP 1684. Treated for acute CHF. Was initially started on IV lasix. Has CKD and Cr leidy from 1.43 to 1.59. Lasix was then stopped. Fluid balance neg 3.4liters since admit. She had episode of chest pain/ sob this am which she tells me was a panic attack. Otherwise breathing improved but not at baseline. Wearing O2 with cannula, sat 95% on 4 liters. She is on Aldactone and Imdur which can be continued. Will start on Diovan 40mg bid and Metoprolol tartrate 25mg q 12 hr. Echocardiogram is pending and will help determine type of CHF. She has multiple cardiac risk factors including DM, HTN, HLD, CKD, PAD and will need an ischemic evaluation, likely as outpt. If echo shows reduced EF and wall motion abnromality, then would benefit from cardiac catheterization. Labs for today are still pending - BNP added to am labs. Continue strict I+O monitoring. Close monitoring of electrolyte and kidney function with med adjustments. Recommend repeat CXR to eval left effusion. Consider thoracentesis of remains large. O2 supplement as needed for sat > 90%. We will follow. Case discussed with Nguyen Brownlee. Echocardiogram today. Further treatment based on the findings of the echocardiogram. Clinically has marked hypertensive response to panic. Renal artery stenosis needs to be ruled out, high risk for the same. Also high risk for ischemic heart disease. Will require stress testing/ischemic workup depending on the findings of echocardiogram. Add Diovan and metoprolol to her regimen. Continue monitor for signs and symptoms of heart failure. Aggressive control blood pressure is required. Continue monitor renal function. Will follow with the <Micky Cotton MD - Last Filed: 01/17/21 12:42> (2) Pleural effusion: Status: Acute <PAOLO Phillips - Last Filed: 01/17/21 11:58> (3) Chest pain: Status: Acute <PAOLO Phillips - Last Filed: 01/17/21 11:58> Assessment and Plan: Episode this am. She reports panic attack. EKG shows SR, RBBB, no ischemia. Troponin pending. Echo pending. <PAOLO Phillips - Last Filed: 01/17/21 11:58> (4) Acute worsening of stage 3 chronic kidney disease: Status: Acute <PAOLO Phillips - Last Filed: 01/17/21 11:58> Assessment and Plan: BP elevated - will be checked renal duplex to assess for [place]. <PAOLO Phillips - Last Filed: 01/17/21 11:58> (5) HTN (hypertension): Status: Acute <PAOLO Phillips - Last Filed: 01/17/21 11:58> Assessment and Plan: as above. Adding Diovan and Carvedilol <PAOLO Phillips - Last Filed: 01/17/21 11:58> Fall Risk Details Current Medications: Current Medications Acetaminophen (Acetaminophen 325 Mg Tablet) 650 mg PO Q6H PRN PRN Reason: Pain, Mild (Pain Scale 1-3) Last Admin: 01/14/21 19:25 Dose: 650 mg Documented by: Acetaminophen/Butalbital/Caffeine (Butalb/Acetamin/Caff 50/325/40 Tablet) 1 tab PO Q6H PRN PRN Reason: Headache Last Admin: 01/16/21 22:08 Dose: 1 tab Documented by: Amlodipine Besylate (Amlodipine Besylate 10 Mg Tablet) 10 mg PO DAILY [facility]; Protocol Last Admin: 01/17/21 08:31 Dose: 10 mg Documented by: Dextrose (Dextrose 50 % 25 Gm/50 Ml Vial) 25 gm IVPUSH Q15M PRN; Protocol PRN Reason: per Hypoglycemia Standing Ord. Diphenhydramine HCl (Diphenhydramine Hcl 25 Mg Tablet) 25 mg PO Q6H PRN PRN Reason: Itching Last Admin: 01/17/21 03:36 Dose: 25 mg Documented by: Glucose (Glucose Gel 15 Gm Gel..Gram.) 15 gm PO Q15M PRN; Protocol PRN Reason: per Hypoglycemia Standing Ord. Guaifenesin/Dextromethorphan (Guaifenesin Dm 200/20/10 Ml 10 Ml Syrup) 10 ml PO Q6H [facility] Last Admin: 01/17/21 08:30 Dose: 10 ml Documented by: Hydroxyzine HCl (Hydroxyzine Hcl 25 Mg Tablet) 25 mg PO Q6H PRN PRN Reason: anxiety/restlessness Meropenem 1 gm/ Sodium (Chloride) 100 mls @ 100 mls/hr IV Q8H [facility] Last Infusion: 01/17/21 04:45 Dose: Infused Documented by: Insulin Glargine (Insulin Glargine,Hum.Rec.Anlog 100 Unit/Ml 10 Ml Vial) 10 unit SUBCUT DAILY [facility] Insulin Human Lispro (Insulin Lispro 100 Unit/Ml 3 Ml Vial) 0 unit SUBCUT QIDACHS [facility]; Protocol Last Admin: 01/17/21 07:55 Dose: Not Given Documented by: Isosorbide Mononitrate (Isosorbide Mononitrate 30 Mg Tab.Er.24h) 30 mg PO DAILY [facility]; Protocol Last Admin: 01/17/21 08:30 Dose: 30 mg Documented by: Lidocaine (Lidocaine 4 % Patch Adh..Patch) 1 patch TRANSDERMA DAILY [facility]; Protocol Last Admin: 01/17/21 08:31 Dose: 1 patch Documented by: Metoprolol Tartrate (Metoprolol Tartrate 25 Mg Tablet) 25 mg PO BID [facility]; Protocol Ondansetron HCl (Ondansetron Hcl 4 Mg/2 Ml Vial) 4 mg IVPUSH Q8H PRN PRN Reason: Nausea and Vomiting Last Admin: 01/17/21 05:39 Dose: 4 mg Documented by: Oxycodone HCl (Oxycodone Hcl Immed Release 5 Mg Tablet) 5 mg PO Q6H PRN PRN Reason: Pain, Severe (Pain Scale 7-10) Last Admin: 01/17/21 03:36 Dose: 5 mg Documented by: Pharmacy Consult (Consult Rx Perform Med Rec) 1 each MISCELLANE ONCE PRN PRN Reason: Consult order Rivaroxaban (Rivaroxaban 10 Mg Tablet) 10 mg PO DAILY [facility] Last Admin: 01/17/21 08:30 Dose: 10 mg Documented by: Sertraline HCl (Sertraline Hcl 25 Mg Tablet) 25 mg PO DAILY [facility] Last Admin: 01/17/21 08:30 Dose: 25 mg Documented by: Sodium Chloride (0.9 % Sodium Chloride Flush 3 Ml Syringe) [facility] Last Admin: 01/17/21 08:30 Dose: 3 ml Documented by: Spironolactone (Spironolactone 25 Mg Tablet) 50 mg PO DAILY [facility]; Protocol Last Admin: 01/17/21 08:30 Dose: 50 mg Documented by: Valsartan (Valsartan 40 Mg Tablet) 40 mg PO BID [facility]; Protocol <PAOLO Phillips - Last Filed: 01/17/21 11:58> Time Spent With Patient Time: Total time spent is greater than 50% in coordination of care (as documented) at patient's floor/unit and/or counseling patient: <PAOLO Phillips - Last Filed: 01/17/21 11:58> Time with patient: 25 - 35 minutes <PAOLO Phillips - Last Filed: 01/17/21 11:58> Progress Note: Quality Stroke Does the patient have a stroke diagnosis?: No <PAOLO Phillips - Last Filed: 01/17/21 11:58> Procedures Date of Service Date of Service: 01/17/21 <PAOLO Phillips - Last Filed: 01/17/21 11:58>
[2021-01-17 12:03] LABS: Glucose, Whole Blood 134 mg/dL (60-115)
--- NOTE | 2021-01-17 12:03 | CA_ITS ---
Transthoracic Echocardiogram Patient (Last, First, Middle): Shereen Taylor, Gender: Female Date of : 1990 Age: 30 Procedure Date: 01/17/2021 Procedure Type: Transthoracic [place] [facility] [place]: 167.64 cm Weight: 90.72 kg BSA: 2.00 m2 Heart Rate: bpm BP: 155 / 91 mmHg Garage Door Technician: JIMENA Dash MD: Daiana Brown DO Fish Worm Grower: Micky Cotton MD Symptoms: dyspnea, large pleural effusions Study Quality: Fair Conclusions: - 1. Mildly reduced LV systolic function with impaired relaxation filling pattern underlying wall motion abnormality suggestive of coronary artery disease 2. Mildly increased right ventricular size with reduced systolic function 3. Mild mitral regurgitation 4. Mildly to moderately elevated right ventricular systolic pressure with mildly elevated right atrial pressures 5. Small circumferential pericardial effusion Findings Left Ventricle Normal left ventricular cavity size. There is normal left ventricular wall thickness. The left ventricular systolic function is mildly decreased. The visually estimated ejection fraction is between 45-50%. Spectral Doppler is indicative of an impaired relaxation filling pattern. E/E prime ratio is between 8 and 15 consistent with indeterminate filling pressures. Wall Motion Rest Echo Findings The inferoseptal wall and mid inferior segment are hypokinetic. The basal inferior segment is akinetic. All other scored wall segments showed normal motion. Right Ventricle Mildly increased right ventricular cavity size. There is low normal right ventricular systolic function. Atria The left atrium is mildly dilated. Interatrial shunt cannot be excluded. The right atrium is likely dilated. Aortic Valve Normal aortic valve structure and function. There is no aortic valve stenosis. There is no aortic valve regurgitation. Mitral Valve There is mild anterior and posterior mitral leaflet thickening. There is mild mitral valve regurgitation. There is no mitral valve stenosis. Pulmonic Valve The pulmonic valve is likely normal. There is trace pulmonic valve regurgitation. Tricuspid Valve There is mild to moderate tricuspid valve regurgitation. Mildly elevated right atrial pressure. Mild to moderate pulmonary hypertension is present. Great Vessels All visible segments of the aorta are normal in size. The pulmonary artery was not well visualized. Venous The inferior vena cava is mildly dilated and collapses less than 50% with inspiration. Pericardium/Pleural There is a small circumferential pericardial effusion. There is a moderate bilateral pleural effusion. Prior Study Comparison No prior study available for comparison. Measurements 2D Linear Measurements IVSd: 1.00 0.6-0.9/0.6-1.0 cm LVIDd: 5.09 3.9-5.3/4.2-5.9 cm LVIDd Index: 2.55 2.4-3.2/2.2-3.1 cm/m2 LVIDs: 3.60 2.0-3.6 cm LVPWd: 0.94 0.7-1.1 cm Ao Root: 2.90 2.1-3.5 cm LA Diam: 4.50 2.7-3.8/3.0-4.0 cm LAIDs Index: 2.25 1.5-2.3 cm/m2 LV Mass: 222.95 67-162/88-224 g LV Mass Index: 111.47 43-95/49-115 g/m2 LVOT Diam: 2.20 3.0+(-)1.3 cm 2D Systolic Function EF 4C: 46.00 >55% EF 2C: 49.00 >55% EF BiP: 47.90 >55% Mitral Valve MV Pk E: 0.91 MV PK A: 0.55 MV Decel Time: 146.00 E/A: 1.60 E'Lateral: 9.03 E'Medial: 7.07 E/E' Med: 12.80 E/E' Lat: 10.10 PHT: 43.00 MVA PHT: 5.12 Decel [place]: 6.22 Aortic Valve AoV Pk Pietro: 1.35 AoV Mn Pietro: 1.06 AoV VTI: 0.25 AoV Pk Grad: 7.00 Aov Mn Grad: 5.00 ANDREA Cont.VTI: 2.57 LVOT LVOT Pk Pietro: 0.97 LVOT Mn Pietro: 0.64 LVOT VTI: 0.17 LVOT Pk Grad: 4.00 LVOT Mn Grad: 2.00 LVOT Diam: 2.20 LVOT Area: 3.80 Diastolic Function MV Pk E: 0.91 MV Pk A: 0.55 E/A: 1.60 E'Medial: 7.07 E/E' Med: 12.80 E' Laterial: 9.03 E/E' Lat: 10.10 Right Ventricle TAPSE (mm): 1.61 TVS' Pietro: 9.36 Tricuspid Valve TR Pk Pietro: 3.11 TR Pk Grad: 39.00 RA Press: 8.00 RVSP: 47.00 Great Vessels Aorta Ao Root-2D: 2.90 2.0-3.7 cm Ao Asc: 3.20 2.1-3.4 cm Ao Arch: 3.10 Updated in Other Vendor System with Status of Final Micky Cotton MD electronically signed on 01/17/2021 3:45:07 PM with status of Final
[2021-01-17] MEDS: Valsartan 40 MG TABLET PO ×2 (12:40→19:54)
[2021-01-17] MEDS: Metoprolol Tartrate 25 MG TABLET PO ×2 (12:40→19:55)
[2021-01-17 13:05] LABS: Hematocrit 25.5 % (37.0-47.0); Hemoglobin 8.1 g/dl (12.0-16.0); Mean Corpuscular HGB Conc 31.8 g/dl (31.0-35.0); Mean Corpuscular Hemoglobin 25.6 pg (27.0-33.0); Mean Corpuscular Volume 80.7 fL (80.0-98.0); Mean Platelet Volume 11.5 fL (9.4-12.3); Platelet Count 193 X10*3/uL (160-400); Red Blood Count 3.16 X10*6/uL (4.20-5.50); Red Cell Distribution Width 15.3 % (11.0-16.0); White Blood Count 7.7 X10*3/uL (4.8-10.8)
[2021-01-17 13:29] LABS: Anion Gap 10 (12-20); B Type Natriuretic Peptide 1349 pg/mL (<100); Blood Urea Nitrogen 21 mg/dL (9-16); Calcium 6.9 mg/dL (8.4-10.2); Carbon Dioxide 25 mmol/L (22-29); Chloride 102 mmol/L (96-108); Creatinine Clr Calc Pharmacy 59.5; Estimated Glomerular Filt Rate 39; Glucose Random 123 mg/dL (60-115); Potassium 3.2 mmol/L (3.3-5.1); Sodium 134 mmol/L (135-145)
[2021-01-17 13:30] LABS: Troponin-I High Sensitivity 29.3 ng/L (<3.5-17.0)
[2021-01-17 16:27] LABS: Glucose, Whole Blood 80 mg/dL (60-115)
[2021-01-17 17:04] LABS: Troponin-I High Sensitivity 25.7 ng/L (<3.5-17.0)
[2021-01-17] MEDS: Acetaminophen 325 MG TABLET 650 MG PO (17:39)
[2021-01-17] MEDS: Furosemide 40 MG/4 ML VIAL IVPUSH (17:41)
[2021-01-17] MEDS: Potassium Chloride ER 20 MEQ TAB.ER.PRT 40 MEQ PO (17:41)
[2021-01-17] MEDS: Butalb/Acetamin/Caff 50/325/40 TABLET 1 TAB PO (19:55)
[2021-01-17 20:17] LABS: Glucose, Whole Blood 131 mg/dL (60-115)
[2021-01-18] VITALS (9 sets, daily range): BP systolic 125–135; BP diastolic 67–78; PULSE 77–92; RESP 18–20; TEMP 36.4–36.8; O2SAT 92–99
[2021-01-18 07:26] LABS: Glucose, Whole Blood 104 mg/dL (60-115)
[2021-01-18] MEDS: 0.9 % Sodium Chloride Flush 3 ML SYRINGE IVFLUSH ×2 (08:13→18:08)
[2021-01-18] MEDS: amLODIPine Besylate 10 MG TABLET PO (08:13)
[2021-01-18] MEDS: guaiFENesin DM 200/20/10 ML 10 ML SYRUP PO ×2 (08:13→19:40)
[2021-01-18] MEDS: Isosorbide Mononitrate 30 MG TAB.ER.24H PO (08:14)
[2021-01-18] MEDS: Sertraline HCL 25 MG TABLET PO (08:15)
[2021-01-18] MEDS: Lidocaine 4 % Patch ADH..PATCH 1 PATCH TRANSDERMA (08:15)
[2021-01-18] MEDS: Rivaroxaban 10 MG TABLET PO (08:15)
[2021-01-18] MEDS: Metoprolol Tartrate 25 MG TABLET PO ×2 (08:15→19:41)
[2021-01-18] MEDS: Spironolactone 25 MG TABLET 50 MG PO (08:15)
[2021-01-18] MEDS: Insulin Glargine,Hum.rec.anlog 100 UNIT/ML 10 ML VIAL 10 UNIT SUBCUT (08:16)
[2021-01-18] MEDS: Valsartan 40 MG TABLET PO ×2 (08:16→19:40)
[2021-01-18] MEDS: oxyCODONE HCl Immed Release 5 MG TABLET PO (08:20)
[2021-01-18 08:39] LABS: Hematocrit 23.8 % (37.0-47.0); Hemoglobin 7.4 g/dl (12.0-16.0); Mean Corpuscular HGB Conc 31.1 g/dl (31.0-35.0); Mean Corpuscular Hemoglobin 25.5 pg (27.0-33.0); Mean Corpuscular Volume 82.1 fL (80.0-98.0); Platelet Count 142 X10*3/uL (160-400); Red Cell Distribution Width 15.3 % (11.0-16.0); White Blood Count 3.7 X10*3/uL (4.8-10.8)
[2021-01-18 08:52] LABS: Anion Gap 10 (12-20); Blood Urea Nitrogen 21 mg/dL (9-16); Calcium 7.1 mg/dL (8.4-10.2); Carbon Dioxide 27 mmol/L (22-29); Chloride 106 mmol/L (96-108); Creatinine Clr Calc Pharmacy 60.7; Estimated Glomerular Filt Rate 40; Glucose Random 96 mg/dL (60-115); Potassium 3.6 mmol/L (3.3-5.1); Sodium 139 mmol/L (135-145)
[2021-01-18 09:01] LABS: B Type Natriuretic Peptide 513 pg/mL (<100)
--- NOTE | 2021-01-18 09:24 | P.PNCA_ITS ---
Subjective Subjective Date of Service: 01/18/21 <PAOLO Phillips - Last Filed: 01/18/21 10:25> 01/18/21 <Micky Cotton MD - Last Filed: 01/18/21 11:46> Principal diagnosis: CHF, pleural effusion, MYNOR on CKD, elevated Trop <PAOLO Phillips - Last Filed: 01/18/21 10:25> Interval history: Cardiology follow up for CHF, elevated Trop. Seen at 0830. Today she reports feeling much better and hoping to go home today. She states breathing is normal with use of O2 cannula. No cough, denies orthopnea. No chest pains, palpitations, dizziness. Has been up to commode. Eating breakfast, no caffiene. <PAOLO Phillips - Last Filed: 01/18/21 10:25> Review of Systems Review of Systems as above <PAOLO Phillips - Last Filed: 01/18/21 10:25> Physical Exam Vital Signs: Last Vital Signs Temp 98.0 F 01/18/21 07:24 Pulse 81 01/18/21 08:16 Resp 18 01/18/21 07:24 BP 135/78 01/18/21 08:16 Pulse Ox 99 01/18/21 07:24 Oxygen Flow Rate 2 01/14/21 04:33 Body Mass Index 32.3 <PAOLO Phillips - Last Filed: 01/18/21 10:25> Const Other: blind right eye, impaired vision left eye <PAOLO Phillips - Last Filed: 01/18/21 10:25> General: cooperative, no acute distress, alert and awake <PAOLO Phillips - Last Filed: 01/18/21 10:25> Orientation/consciousness: patient oriented x3 <PAOLO Phillips - Last Filed: 01/18/21 10:25> Neck Neck: Yes normal visual inspection and Yes no JVD <PAOLO Phillips - Last Filed: 01/18/21 10:25> Resp Effort & Inspection: normal respiratory effort, able to speak in complete sentences and not labored <PAOLO Phillips - Last Filed: 01/18/21 10:25> Auscultation: clear to auscultation bilaterally, no crackles, no rales, no rhonchi and no wheezes <Nguyen CHRIS BrownleeC - Last Filed: 01/18/21 10:25> Cardio Palpation: normal PMI <[facility] CHRIS BrownleeC - Last Filed: 01/18/21 10:25> Rate: regular rate <[facility] CHRIS BrownleeC - Last Filed: 01/18/21 10:25> Rhythm: regular rhythm <[facility] CHRIS Brownlee-C - Last Filed: 01/18/21 10:25> Heart sounds: S1 normal heart sound present and S2 normal heart sound present <[facility] CHRIS Brownlee - Last Filed: 01/18/21 10:25> GI Inspection: Yes normal to inspection <[facility] Kem [employer]- - Last Filed: 01/18/21 10:25> Neuro General: patient oriented x3 <[facility] CHRIS BrownleeC - Last Filed: 01/18/21 10:25> Extrem Other: bilateral transmetatarsal amps, trace ankle edema <[facility] CHRIS Brownlee - Last Filed: 01/18/21 10:25> Objective Labs and Meds Result diagrams: : 01/18/21 08:11 01/18/21 08:11 <Nguyen CHRIS Brownlee - Last Filed: 01/18/21 10:25> Lab results: Laboratory Results - last 24 hr 01/17/21 01/17/21 01/17/21 10:28 12:00 12:45 WBC RBC Hgb Hct MCV MCH MCHC RDW Plt Count MPV Absolute Nucleated RBC Nucleated RBC % (auto) Sodium 134 L Potassium 3.2 L Chloride 102 Carbon Dioxide 25 Anion Gap 10 L BUN 21 H Creatinine 1.54 H Estim Creat Clear Calc 59.5 Estimated GFR 39 POC Glucose 86 134 H Random Glucose 123 H Calcium 6.9 L Troponin I High Sens B-Natriuretic Peptide 01/17/21 01/17/21 01/17/21 12:45 12:45 15:50 WBC 7.7 RBC 3.16 L Hgb 8.1 L Hct 25.5 L MCV 80.7 MCH 25.6 L MCHC 31.8 RDW 15.3 Plt Count 193 MPV 11.5 Absolute Nucleated RBC 0.000 Nucleated RBC % (auto) 0.0 Sodium Potassium Chloride Carbon Dioxide Anion Gap BUN Creatinine Estim Creat Clear Calc Estimated GFR POC Glucose Random Glucose Calcium Troponin I High Sens 29.3 H* D 25.7 H* B-Natriuretic Peptide 1349 H 01/17/21 01/17/21 01/18/21 16:24 20:12 07:19 WBC RBC Hgb Hct MCV MCH MCHC RDW Plt Count MPV Absolute Nucleated RBC Nucleated RBC % (auto) Sodium Potassium Chloride Carbon Dioxide Anion Gap BUN Creatinine Estim Creat Clear Calc Estimated GFR POC Glucose 80 131 H 104 Random Glucose Calcium Troponin I High Sens B-Natriuretic Peptide 01/18/21 01/18/21 01/18/21 08:11 08:11 08:11 WBC 3.7 L RBC 2.90 L Hgb 7.4 L Hct 23.8 L MCV 82.1 MCH 25.5 L MCHC 31.1 RDW 15.3 Plt Count 142 L D MPV 12.0 Absolute Nucleated RBC 0.000 Nucleated RBC % (auto) 0.0 Sodium 139 Potassium 3.6 Chloride 106 Carbon Dioxide 27 Anion Gap 10 L BUN 21 H Creatinine 1.51 H Estim Creat Clear Calc 60.7 Estimated GFR 40 POC Glucose Random Glucose 96 Calcium 7.1 L Troponin I High Sens B-Natriuretic Peptide 513 H <PAOLO Phillips - Last Filed: 01/18/21 10:25> Imaging Radiologist's impression: Impressions PICC Line Exchange 01/17/21 11:54 IMPRESSION: Right upper extremity PICC line exchange. Renal Ultrasound 01/17/21 16:18 IMPRESSION: Normal renal ultrasound. Normal renal Doppler ultrasound. Renal Ultrasound 01/17/21 16:18 IMPRESSION: Normal renal ultrasound. Normal renal Doppler ultrasound. <PAOLO Phillips - Last Filed: 01/18/21 10:25> Progress Note: A&P Assessment and plan (1) CHF (congestive heart failure): Status: Acute <PAOLO Phillips - Last Filed: 01/18/21 10:25> Assessment and Plan: Admit with sob. CTA chest showed no PE, large bilateral pleural effusion and small pericardial effusion. Had right thoracentesis for 1 liter of clear yellow fluid. BNP 1684. Treated for acute CHF.? Echo shows EF 45-50%, WMA suggestive of CAD, mild increase in RV size and decrease in RV systolic function, mild to mod increase in RVSP, small pericardial effusion. Was treated with IV lasix. Has CKD and Cr elevated this admit up to 1.59, today 1.51. Fluid balance neg 4.3 liters since admit. BNP down to 513 today. She reports that breathing is normal, but still wearing O2 2 liters with cannula. Wean O2 as able, keeping sat > 90%. Will order CXR today to reeval left pleural effusion. Continue Aldactone, Imdur, Valsartan and Metoprolol. She has multiple cardiac risk factors including DM, HTN, HLD, CKD, PAD and will need an ischemic evaluation. Stress test was ordered however has anemia of chronic disease with Hgb down to 7.4, Hct 23.8 today. Will need to cx stress portion of stress test today. Recommend transfusion with goal hct 30, hospitalist notified. Lasix between units. Plan for rest portion of nuclear stress test today and stress por tion tomorrow if anemia improved. Continue strict I+O monitoring. Close monitoring of electrolyte and kidney function with med adjustments. <PAOLO Phillips - Last Filed: 01/18/21 10:25> Admit with sob. CTA chest showed no PE, large bilateral pleural effusion and small pericardial effusion. Had right thoracentesis for 1 liter of clear yellow fluid. BNP 1684. Treated for acute CHF.? Echo shows EF 45-50%, WMA suggestive of CAD, mild increase in RV size and decrease in RV systolic function, mild to mod increase in RVSP, small pericardial effusion. Was treated with IV lasix. Has CKD and Cr elevated this admit up to 1.59, today 1.51. Fluid balance neg 4.3 liters since admit. BNP down to 513 today. She reports that breathing is normal, but still wearing O2 2 liters with cannula. Wean O2 as able, keeping sat > 90%. Will order CXR today to reeval left pleural effusion. Continue Aldactone, Imdur, Valsartan and Metoprolol. She has multiple cardiac risk factors including DM, HTN, HLD, CKD, PAD and will need an ischemic evaluation. Stress test was ordered however has anemia of chronic disease with Hgb down to 7.4, Hct 23.8 today. Will need to cx stress portion of stress test today. Recommend transfusion with goal hct 30, hospitalist notified. Lasix between units. Plan for rest portion of nuclear stress test today and stress portion tomorrow if anemia improved. Continue strict I+O monitoring. Close monitoring of electrolyte and kidney function with med adjustments. Patient seen and examined. Case discussed with Nguyen nelson here. Agree with above assessment. Discussed with patient the need for transfusion to perform stress test safely given that she has high risk for underlying coronary artery disease and has most likely ischemic heart failure. Importance of this to improve her long-term prognosis was discussed. She is adamant in not wanting to have blood transfusion at this point time. Invasive cardiac catheterization similarly would be not advisable unless she has significant ischemia given her significant anemia as well as elevated creatinine. If she agrees for transfusion and hematocrit is above 30 will perform myocardial perfusion imaging. Otherwise will follow-up as outpatient. She says she is feeling a lot better. Continue current treatment with neurohormonal modulation with valsartan and Aldactone and metoprolol. Continue current diuretic regimen. High risk for adverse cardiovascular outcome was discussed with the team as well as with the patient. She showed understanding. <Micky Cotton MD - Last Filed: 01/18/21 11:46> (2) Chest pain: Status: Acute <PAOLO Phillips - Last Filed: 01/18/21 10:25> Assessment and Plan: Episode of CP, sob yesterday am. She describes that she was having a panic attack. Troponins mildly elevated. No EKG changes of ischemia. No known cardiac hx. Echo as above. Likely does have CAD. Nuclear stress planned as above to eval for ischemia. <PAOLO Phillips - Last Filed: 01/18/21 10:25> (3) Elevated troponin: Status: Acute <PAOLO Phillips - Last Filed: 01/18/21 10:25> (4) Abnormal finding on echocardiogram: Status: Acute <PAOLO Phillips - Last Filed: 01/18/21 10:25> (5) Acute worsening of stage 3 chronic kidney disease: Status: Acute <Nguyen Walters PAOLO Brownlee - Last Filed: 01/18/21 10:25> Assessment and Plan: Nephrology following. Cr 1.51 today <Nguyen Walters PAOLO Brownlee - Last Filed: 01/18/21 10:25> (6) HTN (hypertension): Status: Acute <Nguyen Walters PAOLO Brownlee - Last Filed: 01/18/21 10:25> Assessment and Plan: Hypertensive response to reported panic attack yesterday. Has been started on Valsartan and metoprolol. Continued on Imdur, aldactone, amlodipine. Renal artery ultrasound shows no [place]. BP Better controlled today <Nguyen Romeo PAOLO Brownlee - Last Filed: 01/18/21 10:25> Fall Risk Details Current Medications: Current Medications Acetaminophen (Acetaminophen 325 Mg Tablet) 650 mg PO Q6H PRN PRN Reason: Pain, Mild (Pain Scale 1-3) Last Admin: 01/17/21 17:39 Dose: 650 mg Documented by: Acetaminophen/Butalbital/Caffeine (Butalb/Acetamin/Caff 50/325/40 Tablet) 1 tab PO Q6H PRN PRN Reason: Headache Last Admin: 01/17/21 19:55 Dose: 1 tab Documented by: Amlodipine Besylate (Amlodipine Besylate 10 Mg Tablet) 10 mg PO DAILY [facility]; Protocol Last Admin: 01/18/21 08:13 Dose: 10 mg Documented by: Dextrose (Dextrose 50 % 25 Gm/50 Ml Vial) 25 gm IVPUSH Q15M PRN; Protocol PRN Reason: per Hypoglycemia Standing Ord. Diphenhydramine HCl (Diphenhydramine Hcl 25 Mg Tablet) 25 mg PO Q6H PRN PRN Reason: Itching Last Admin: 01/17/21 19:55 Dose: 25 mg Documented by: Glucose (Glucose Gel 15 Gm Gel..Gram.) 15 gm PO Q15M PRN; Protocol PRN Reason: per Hypoglycemia Standing Ord. Guaifenesin/Dextromethorphan (Guaifenesin Dm 200/20/10 Ml 10 Ml Syrup) 10 ml PO Q6H [facility] Last Admin: 01/18/21 08:13 Dose: 10 ml Documented by: Hydroxyzine HCl (Hydroxyzine Hcl 25 Mg Tablet) 25 mg PO Q6H PRN PRN Reason: anxiety/restlessness Meropenem 1 gm/ Sodium (Chloride) 100 mls @ 100 mls/hr IV Q8H [facility] Last Infusion: 01/18/21 04:59 Dose: Infused Documented by: Insulin Glargine (Insulin Glargine,Hum.Rec.Anlog 100 Unit/Ml 10 Ml Vial) 10 unit SUBCUT DAILY [facility] Last Admin: 01/18/21 08:16 Dose: 10 unit Documented by: Insulin Human Lispro (Insulin Lispro 100 Unit/Ml 3 Ml Vial) 0 unit SUBCUT QIDACHS [facility]; Protocol Last Admin: 01/18/21 08:12 Dose: Not Given Documented by: Isosorbide Mononitrate (Isosorbide Mononitrate 30 Mg Tab.Er.24h) 30 mg PO DAILY [facility]; Protocol Last Admin: 01/18/21 08:14 Dose: 30 mg Documented by: Lidocaine (Lidocaine 4 % Patch Adh..Patch) 1 patch TRANSDERMA DAILY [facility]; Protocol Last Admin: 01/18/21 08:15 Dose: 1 patch Documented by: Metoprolol Tartrate (Metoprolol Tartrate 25 Mg Tablet) 25 mg PO BID [facility]; Protocol Last Admin: 01/18/21 08:15 Dose: 25 mg Documented by: Ondansetron HCl (Ondansetron Hcl 4 Mg/2 Ml Vial) 4 mg IVPUSH Q8H PRN PRN Reason: Nausea and Vomiting Last Admin: 01/17/21 05:39 Dose: 4 mg Documented by: Oxycodone HCl (Oxycodone Hcl Immed Release 5 Mg Tablet) 5 mg PO Q6H PRN PRN Reason: Pain, Severe (Pain Scale 7-10) Last Admin: 01/18/21 08:20 Dose: 5 mg Documented by: Pharmacy Consult (Consult Rx Perform Med Rec) 1 each MISCELLANE ONCE PRN PRN Reason: Consult order Rivaroxaban (Rivaroxaban 10 Mg Tablet) 10 mg PO DAILY [facility] Last Admin: 01/18/21 08:15 Dose: 10 mg Documented by: Sertraline HCl (Sertraline Hcl 25 Mg Tablet) 25 mg PO DAILY [facility] Last Admin: 01/18/21 08:15 Dose: 25 mg Documented by: Sodium Chloride (0.9 % Sodium Chloride Flush 3 Ml Syringe) 3 ml IVFLUSH QSHIFT [facility] Last Admin: 01/18/21 08:13 Dose: 3 ml Documented by: Spironolactone (Spironolactone 25 Mg Tablet) 50 mg PO DAILY [facility]; Protocol Last Admin: 01/18/21 08:15 Dose: 50 mg Documented by: Valsartan (Valsartan 40 Mg Tablet) 40 mg PO BID [facility]; Protocol Last Admin: 01/18/21 08:16 Dose: 40 mg Documented by: <PAOLO Phillips - Last Filed: 01/18/21 10:25> Time Spent With Patient Time: Total time spent is greater than 50% in coordination of care (as documented) at patient's floor/unit and/or counseling patient: 26 <PAOLO Phillips - Last Filed: 01/18/21 10:25> Time with patient: 25 - 35 minutes <PAOLO Phillips - Last Filed: 01/18/21 10:25> Progress Note: Quality Stroke Does the patient have a stroke diagnosis?: No <PAOLO Phillips - Last Filed: 01/18/21 10:25> Procedures Date of Service Date of Service: 01/18/21 <PAOLO Phillips - Last Filed: 01/18/21 10:25>
--- NOTE | 2021-01-18 10:25 | HO.PM.IMPN ---
Subjective Subjective Date of Service: 01/18/21 Interval History: seen and examined this AM denies any chest pain, sob, cough wants to be discharged home seen again later in the morning to discuss PRBC transfusion as her h/h dropping and she needs cardiac work up. Seen with her RN and despite both of us explaining to her why she needs it, she is refusing stating that she does not take blood products Review of Systems negative except interval history Physical Exam Vital Signs: Vital Signs: Last Vital Signs Temp 98.0 F 01/18/21 07:24 Pulse 81 01/18/21 08:16 Resp 18 01/18/21 07:24 BP 135/78 01/18/21 08:16 Pulse Ox 99 01/18/21 07:24 Oxygen Flow Rate 2 01/14/21 04:33 Body Mass Index 32.3 Const: Other: Gen - awake and alert, eyes closed HEENT - R cornea opaque, no JVD CVS - S1S2, tachy in the 110s Lungs - Dim, no hypoxia or respiratory distress this AM Abd - soft, nt/nd Ext (lower) - 1st and fifth toe ampuations on L; R TMA with superficial ulcer on medial / lateral margin; RLE swelling and erythema significantly improved Neuro - aaox;3 moving all 4 limbs equally, speech clear Skin -no Rash Objective Data Active Medications Acetaminophen (Acetaminophen 325 Mg Tablet) 650 mg PO Q6H PRN PRN Reason: Pain, Mild (Pain Scale 1-3) Last Admin: 01/17/21 17:39 Dose: 650 mg Documented by: KESHAV Acetaminophen/Butalbital/Caffeine (Butalb/Acetamin/Caff 50/325/40 Tablet) 1 tab PO Q6H PRN PRN Reason: Headache Last Admin: 01/17/21 19:55 Dose: 1 tab Documented by: JASMINA Amlodipine Besylate (Amlodipine Besylate 10 Mg Tablet) 10 mg PO DAILY [facility]; Protocol Last Admin: 01/18/21 08:13 Dose: 10 mg Documented by: YOLY Dextrose (Dextrose 50 % 25 Gm/50 Ml Vial) 25 gm IVPUSH Q15M PRN; Protocol PRN Reason: per Hypoglycemia Standing Ord. Diphenhydramine HCl (Diphenhydramine Hcl 25 Mg Tablet) 25 mg PO Q6H PRN PRN Reason: Itching Last Admin: 01/17/21 19:55 Dose: 25 mg Documented by: JASMINA Glucose (Glucose Gel 15 Gm Gel..Gram.) 15 gm PO Q15M PRN; Protocol PRN Reason: per Hypoglycemia Standing Ord. Guaifenesin/Dextromethorphan (Guaifenesin Dm 200/20/10 Ml 10 Ml Syrup) 10 ml PO Q6H [facility] Last Admin: 01/18/21 08:13 Dose: 10 ml Documented by: YOLY Hydroxyzine HCl (Hydroxyzine Hcl 25 Mg Tablet) 25 mg PO Q6H PRN PRN Reason: anxiety/restlessness Meropenem 1 gm/ Sodium (Chloride) 100 mls @ 100 mls/hr IV Q8H [facility] Last Infusion: 01/18/21 04:59 Dose: 0 mls/hr Documented by: JASMINA Insulin Glargine (Insulin Glargine,Hum.Rec.Anlog 100 Unit/Ml 10 Ml Vial) 10 unit SUBCUT DAILY [facility] Last Admin: 01/18/21 08:16 Dose: 10 unit Documented by: YOLY Insulin Human Lispro (Insulin Lispro 100 Unit/Ml 3 Ml Vial) 0 unit SUBCUT QIDACHS [facility]; Protocol Last Admin: 01/18/21 08:12 Dose: Not Given Documented by: YOLY Non-Admin Reason: No Insulin Coverage Isosorbide Mononitrate (Isosorbide Mononitrate 30 Mg Tab.Er.24h) 30 mg PO DAILY [facility]; Protocol Last Admin: 01/18/21 08:14 Dose: 30 mg Documented by: YOLY Lidocaine (Lidocaine 4 % Patch Adh..Patch) 1 patch TRANSDERMA DAILY [facility]; Protocol Last Admin: 01/18/21 08:15 Dose: 1 patch Documented by: YOLY Metoprolol Tartrate (Metoprolol Tartrate 25 Mg Tablet) 25 mg PO BID [facility]; Protocol Last Admin: 01/18/21 08:15 Dose: 25 mg Documented by: YOLY Ondansetron HCl (Ondansetron Hcl 4 Mg/2 Ml Vial) 4 mg IVPUSH Q8H PRN PRN Reason: Nausea and Vomiting Last Admin: 01/17/21 05:39 Dose: 4 mg Documented by: JASMINA Oxycodone HCl (Oxycodone Hcl Immed Release 5 Mg Tablet) 5 mg PO Q6H PRN PRN Reason: Pain, Severe (Pain Scale 7-10) Last Admin: 01/18/21 08:20 Dose: 5 mg Documented by: YOLY Pharmacy Consult (Consult Rx Perform Med Rec) 1 each MISCELLANE ONCE PRN PRN Reason: Consult order Sertraline HCl (Sertraline Hcl 25 Mg Tablet) 25 mg PO DAILY [facility] Last Admin: 01/18/21 08:15 Dose: 25 mg Documented by: YOLY Sodium Chloride (0.9 % Sodium Chloride Flush 3 Ml Syringe) [facility] Last Admin: 01/18/21 08:13 Dose: 3 ml Documented by: YOLY Spironolactone (Spironolactone 25 Mg Tablet) 50 mg PO DAILY [facility]; Protocol Last Admin: 01/18/21 08:15 Dose: 50 mg Documented by: YOLY Valsartan (Valsartan 40 Mg Tablet) 40 mg PO BID [facility]; Protocol Last Admin: 01/18/21 08:16 Dose: 40 mg Documented by: YOLY Labs CBC & Chem 7: 01/18/21 08:11 01/18/21 08:11 Labs: Laboratory Results - last 24 hr 01/17/21 01/17/21 01/17/21 10:28 12:00 12:45 MCV MCH MCHC RDW Plt Count MPV Absolute Nucleated RBC Nucleated RBC % (auto) Anion Gap 10 L Estim Creat Clear Calc 59.5 Estimated GFR 39 POC Glucose 86 134 H Random Glucose 123 H Calcium 6.9 L Troponin I High Sens B-Natriuretic Peptide 01/17/21 01/17/21 01/17/21 12:45 12:45 15:50 MCV 80.7 MCH 25.6 L MCHC 31.8 RDW 15.3 Plt Count 193 MPV 11.5 Absolute Nucleated RBC 0.000 Nucleated RBC % (auto) 0.0 Anion Gap Estim Creat Clear Calc Estimated GFR POC Glucose Random Glucose Calcium Troponin I High Sens 29.3 H* D 25.7 H* B-Natriuretic Peptide 1349 H 01/17/21 01/17/21 01/18/21 16:24 20:12 07:19 MCV MCH MCHC RDW Plt Count MPV Absolute Nucleated RBC Nucleated RBC % (auto) Anion Gap Estim Creat Clear Calc Estimated GFR POC Glucose 80 131 H 104 Random Glucose Calcium Troponin I High Sens B-Natriuretic Peptide 01/18/21 01/18/21 01/18/21 08:11 08:11 08:11 MCV 82.1 MCH 25.5 L MCHC 31.1 RDW 15.3 Plt Count 142 L D MPV 12.0 Absolute Nucleated RBC 0.000 Nucleated RBC % (auto) 0.0 Anion Gap 10 L Estim Creat Clear Calc 60.7 Estimated GFR 40 POC Glucose Random Glucose 96 Calcium 7.1 L Troponin I High Sens B-Natriuretic Peptide 513 H Microbiology Microbiology Results: Microbiology 01/14/21 15:23 Gram Stain - Final Thoracentesis Fluid Anaerobic Culture - Preliminary No growth to date. Body Fluid Culture - Final No growth after 2 days 01/15/21 09:21 Blood Culture - Preliminary Blood - Venous No growth after 48 hours. 01/15/21 09:20 Blood Culture - Preliminary Blood - Venous No growth after 48 hours. 01/14/21 10:27 Blood Culture - Final Blood - Venous Staphylococcus sciuri Acinetobacter baumannii 01/14/21 11:32 Blood Culture - Final Blood - Venous Staphylococcus sciuri Acinetobacter baumannii Assessment and Plan (1) Sepsis: Status: Acute Assessment and Plan: 30-year-old female with past medical history of uncontrolled diabetes mellitus last hemoglobin A1c 10.7 with retinopathy and legally blind, history of hypertension, history of osteomyelitis status post right transmetatarsal amputation and left foot toe amputations, recently discharged from [facility] on IV antibiotics for foot infection, patient finished course of IV ertapenem and presented to [facility] due to symptoms of shortness of breath of couple? weeks associated with chest discomfort, cough feeling hot and cold today in the emergency room patient noted to have sepsis likely due to right leg cellulitis as well as acute congestive heart failure with elevated BP and P, bilateral pleural effusion and mild pericardial effusions. 1. Sepsis secondary to RLE cellutils 1a. Polymicrobial bacteremia (see details under micro) -- repeat blood cx negative at 24 hours repeat cultures negative to date continue Merrem -- ID to weigh in antibiotics 2. Generalized Anasarca cardiac vs renal as primary cause see details below 3. Acute HFrEF Echo done, EF 45-50% with RMWA; no cp and HS trop-I flat x 2 and EKG without ischemic findings plan for stress test but due to her low h/h, PRBC transfusion needed. However, despite explaining to her the risks of low blood counts on her cardiac status, she is refusing. IV diuretics restarted 01/17, now on oral I/O 4. MYNOR on CKD 3 due to diabetic nephropathy nephrotic range proteinuria -- contributing to anasarca nephrology on board diuretics per nephrology / cardiology recs 5. Pericardial effusion, small (per echo) no tamponade physiology mentioned on echo 6. DM with diabetic retinopathy -- is legally blind episodes of hypoglycemia 01/17 improved on lantus 10, will continue continue with sliding scale coverage with meals 7. Uncontrolled HTN improved -- better control on metoprolol 25mg bid, valsartan 40mg bid, norvasc 10mg, aldactone 50mg, imdur 30mg 8. Normocytic anemia likely related to renal disease no evidence of blood loss refusing prbc transfusion 9. MENDIOLA resolved, probably secondary to uncontrolled BP Full Code DVT pptx, hold xarelto today in light of anemia requiring transfusion Quality Stroke Does the patient have a stroke diagnosis?: No VTE Prior VTE?: No VTE Risk Level:: Medical - moderate - high VTE Device Contraindication: Patient Refused VTE Drug Contraindication: N/A - Med Ordered
--- NOTE | 2021-01-18 10:46 | PC.NURSE ---
Patient refusing RBC transfusion. informed her of risks and the inability to potentially do stress part of [place] stress test. Dr. Weeks at bedside as well
[2021-01-18 11:16] LABS: Glucose, Whole Blood 121 mg/dL (60-115)
--- NOTE | 2021-01-18 11:46 | PC.NURSE ---
Patient transported to [place] non stress test and XRAY. Patient aware and agrees with plan of care.
[2021-01-18 16:20] LABS: Glucose, Whole Blood 147 mg/dL (60-115)
[2021-01-18] MEDS: Insulin Lispro 100 UNIT/ML 3 ML VIAL SUBCUT (19:49)
[2021-01-18 19:50] LABS: Glucose, Whole Blood 183 mg/dL (60-115)
--- NOTE | 2021-01-18 23:17 | P.PNNP_ITS ---
Subjective Subjective Date of Service: 01/18/21 Principal diagnosis: CHF, pleural effusion, MYNOR on CKD, elevated Trop Interval history: seen and examined this AM Anxious to be discharged home Refusing transfusion Physical Exam Vital Signs: Vital Signs: Last Vital Signs Temp 98 F 01/18/21 19:07 Pulse 92 01/18/21 19:07 Resp 18 01/18/21 19:07 BP 134/73 01/18/21 19:07 Pulse Ox 95 01/18/21 19:07 Oxygen Flow Rate 2 01/14/21 04:33 Body Mass Index 32.3 Other:?Gen - awake and alert, eyes closed HEENT - R cornea opaque, no JVD CVS - S1S2, tachy in the 110s Lungs - Dim, no hypoxia or respiratory distress this AM Abd - soft, nt/nd Ext (lower) - ++ edema Neuro - aaox;3 moving all 4 limbs equally, speech clear Skin? -no Rash Objective Data Labs CBC & Chem 7: 01/18/21 08:11 01/18/21 08:11 Labs: Laboratory Results - last 24 hr 01/18/21 01/18/21 01/18/21 07:19 08:11 08:11 WBC RBC Hgb Hct MCV MCH MCHC RDW Plt Count MPV Absolute Nucleated RBC Nucleated RBC % (auto) Sodium 139 Potassium 3.6 Chloride 106 Carbon Dioxide 27 Anion Gap 10 L BUN 21 H Creatinine 1.51 H Estim Creat Clear Calc 60.7 Estimated GFR 40 POC Glucose 104 Random Glucose 96 Calcium 7.1 L B-Natriuretic Peptide 513 H 01/18/21 01/18/21 01/18/21 08:11 11:04 16:16 WBC 3.7 L RBC 2.90 L Hgb 7.4 L Hct 23.8 L MCV 82.1 MCH 25.5 L MCHC 31.1 RDW 15.3 Plt Count 142 L D MPV 12.0 Absolute Nucleated RBC 0.000 Nucleated RBC % (auto) 0.0 Sodium Potassium Chloride Carbon Dioxide Anion Gap BUN Creatinine Estim Creat Clear Calc Estimated GFR POC Glucose 121 H 147 H Random Glucose Calcium B-Natriuretic Peptide 01/18/21 19:47 WBC RBC Hgb Hct MCV MCH MCHC RDW Plt Count MPV Absolute Nucleated RBC Nucleated RBC % (auto) Sodium Potassium Chloride Carbon Dioxide Anion Gap BUN Creatinine Estim Creat Clear Calc Estimated GFR POC Glucose 183 H Random Glucose Calcium B-Natriuretic Peptide Microbiology Microbiology Results: Microbiology 01/14/21 15:23 Thoracentesis Fluid Gram Stain - Final 01/14/21 15:23 Thoracentesis Fluid Anaerobic Culture - Preliminary No growth to date. 01/14/21 15:23 Thoracentesis Fluid Body Fluid Culture - Final No growth after 2 days 01/15/21 09:21 Blood - Venous Blood Culture - Preliminary No growth after 48 hours. 01/15/21 09:20 Blood - Venous Blood Culture - Preliminary No growth after 48 hours. 01/14/21 10:27 Blood - Venous Blood Culture - Final Staphylococcus sciuri Acinetobacter baumannii 01/14/21 11:32 Blood - Venous Blood Culture - Final Staphylococcus sciuri Acinetobacter baumannii Procedures Date of Service Date of Service: 01/18/21 Assessment & Plan Assessment and plan (1) Acute worsening of stage 3 chronic kidney disease: Status: Acute (2) Cellulitis: Status: Acute (3) Pleural effusion: Status: Acute Assessment and Plan: 30-year-old female with 1. MYNOR - Due to renal hypoperfusion/ Acute Tubular injury No [place] on renal USG [place] Had a CTA on 01/14 - KP is also a possibility but MYNOR before the IV Dye CKD stage 3 at baseline 2. Sepsis secondary to RLE cellutils-Polymicrobial bacteremi 3. Generalized Anasarca cardiac vs renal as primary cause 4. Acute HFrEF 5. Pl effusion /Pericardial effusion, small? (per echo) 6. DM with diabetic retinopathy -- is legally blind 7. HTN improved -- better control on metoprolol 25mg bid, valsartan 40mg bid, norvasc 10mg, aldactone 50mg, imdur 30mg Fluid reastriction 1500 ml/ day Low salt diet On Valsartan - watch renal function IV antibiotics as per medical team Will give Epo 20 K once a week Suggest IV Bumex 1 mg IV BID with IV albumin 25% 100 ml Q 8 hrly in Am to help with diuresis Pt on Aldactone 50 mg daily thx Will follow Dr. Ruiz Time Spent With Patient Time: Total time spent is greater than 50% in coordination of care (as documented) at patient's floor/unit and/or counseling patient: Progress Note: Quality Stroke Does the patient have a stroke diagnosis?: No
[2021-01-19] VITALS: BP 142/64; PULSE 88; RESP 16; TEMP 36.3; O2SAT 95
[2021-01-19] MEDS: oxyCODONE HCl Immed Release 5 MG TABLET PO (00:28)
[2021-01-19] MEDS: guaiFENesin DM 200/20/10 ML 10 ML SYRUP PO ×2 (01:54→10:07)
[2021-01-19 03:18] VITALS: BP 139/79; PULSE 85; RESP 17; TEMP 36.1; O2SAT 93
[2021-01-19 06:56] LABS: Anion Gap 11 (12-20); Blood Urea Nitrogen 23 mg/dL (9-16); Calcium 6.9 mg/dL (8.4-10.2); Carbon Dioxide 25 mmol/L (22-29); Chloride 105 mmol/L (96-108); Estimated Glomerular Filt Rate 53; Glucose Random 150 mg/dL (60-115); Iron 31 mcg/dL (30-160); Percent Iron Saturation 19 % (15-50); Potassium 3.6 mmol/L (3.3-5.1); Sodium 137 mmol/L (135-145); Total Iron Binding Capacity 166 mcg/dL (228-428); Unsaturated Iron Binding 135 ug/dL
[2021-01-19 07:26] VITALS: BP 132/74; PULSE 89; RESP 18; TEMP 36.3; O2SAT 97
[2021-01-19 07:27] LABS: Glucose, Whole Blood 127 mg/dL (60-115)
[2021-01-19 09:32] LABS: Hematocrit 25.2 % (37.0-47.0); Hemoglobin 7.8 g/dl (12.0-16.0); Mean Corpuscular Hemoglobin 25.2 pg (27.0-33.0); Mean Corpuscular Volume 81.6 fL (80.0-98.0); Mean Platelet Volume 11.3 fL (9.4-12.3); Platelet Count 172 X10*3/uL (160-400); Red Blood Count 3.09 X10*6/uL (4.20-5.50); Red Cell Distribution Width 15.1 % (11.0-16.0); White Blood Count 4.5 X10*3/uL (4.8-10.8)
--- NOTE | 2021-01-19 09:51 | P.PNCA_ITS ---
Subjective Subjective Date of Service: 01/19/21 <PAOLO Phillips - Last Filed: 01/19/21 10:08> 01/19/21 <Micky Cotton MD - Last Filed: 01/19/21 12:27> Principal diagnosis: CHF, pleural effusion, MYNOR on CKD, elevated Trop <PAOLO Phillips - Last Filed: 01/19/21 10:08> Interval history: Cardiology follow up for CHF, elevated trop. Seen at 0810. Today she reports feeling well and wants to go home. She says her breathing is back to normal and is no longer using O2 supplement. No chest pains or heart pal pitations. No dizziness when out of be in room. Tells me she always has some lower leg edema. Still refusing blood transfusion. Unable to complete stress test due to anemia. <PAOLO Phillips - Last Filed: 01/19/21 10:08> Review of Systems Review of Systems as above <PAOLO Phillips - Last Filed: 01/19/21 10:08> Yes all other systems are reviewed and are negative <PAOLO Phillips - Last Filed: 01/19/21 10:08> Physical Exam Vital Signs: Last Vital Signs Temp 97.3 F 01/19/21 07:26 Pulse 89 01/19/21 07:26 Resp 18 01/19/21 07:26 BP 132/74 01/19/21 07:26 Pulse Ox 97 01/19/21 07:26 Oxygen Flow Rate 2 01/14/21 04:33 Body Mass Index 32.3 <PAOLO Phillips - Last Filed: 01/19/21 10:08> Const Other: blind right eye, impaired vision left eye <PAOLO Phillips - Last Filed: 01/19/21 10:08> General: cooperative, no acute distress, alert and awake <PAOLO Phillips - Last Filed: 01/19/21 10:08> Orientation/consciousness: patient oriented x3 <PAOLO Phillips - Last Filed: 01/19/21 10:08> Neck Neck: Yes normal visual inspection and Yes no JVD <PAOLO Phillips - Last Filed: 01/19/21 10:08> Resp Effort & Inspection: normal respiratory effort, able to speak in complete sentences and not labored <Nguyen Brownlee NP - Last Filed: 01/19/21 10:08> Auscultation: clear to auscultation bilaterally, no crackles, no rales, no rhonchi and no wheezes <Nguyen Brownlee NP - Last Filed: 01/19/21 10:08> Cardio Palpation: normal PMI <Nguyen Brownlee [facility] - Last Filed: 01/19/21 10:08> Rate: regular rate <Nguyen Brownlee [facility] - Last Filed: 01/19/21 10:08> Rhythm: regular rhythm <Nguyen Brownlee [facility] - Last Filed: 01/19/21 10:08> Heart sounds: S1 normal heart sound present and S2 normal heart sound present <Nguyen Brownlee [facility] - Last Filed: 01/19/21 10:08> GI Inspection: Yes normal to inspection <Nguyen Brownlee [facility] - Last Filed: 01/19/21 10:08> Neuro General: patient oriented x3 <Nguyen Brownlee [facility] - Last Filed: 01/19/21 10:08> Extrem Other: trace bilateral lower leg swelling, bilateral transmetatarsal amps <Nguyen Brownlee [facility] - Last Filed: 01/19/21 10:08> General: Yes normal to inspection <Nguyen Brownlee [facility] - Last Filed: 01/19/21 10:08> Objective Labs and Meds Result diagrams: : 01/19/21 09:09 01/19/21 06:12 <Nguyen Brownlee [facility] - Last Filed: 01/19/21 10:08> Lab results: Laboratory Results - last 24 hr 01/18/21 01/18/21 01/18/21 11:04 16:16 19:47 WBC RBC Hgb Hct MCV MCH MCHC RDW Plt Count MPV Absolute Nucleated RBC Nucleated RBC % (auto) Sodium Potassium Chloride Carbon Dioxide Anion Gap BUN Creatinine Estim Creat Clear Calc Estimated GFR POC Glucose 121 H 147 H 183 H Random Glucose Calcium Iron TIBC % Saturation Unsat Iron Binding 01/19/21 01/19/21 01/19/21 06:12 07:15 09:09 WBC 4.5 L RBC 3.09 L Hgb 7.8 L Hct 25.2 L MCV 81.6 MCH 25.2 L MCHC 31.0 RDW 15.1 Plt Count 172 MPV 11.3 Absolute Nucleated RBC 0.000 Nucleated RBC % (auto) 0.0 Sodium 137 Potassium 3.6 Chloride 105 Carbon Dioxide 25 Anion Gap 11 L BUN 23 H Creatinine 1.19 Estim Creat Clear Calc 77.0 Estimated GFR 53 POC Glucose 127 H Random Glucose 150 H Calcium 6.9 L Iron 31 TIBC 166 L % Saturation 19 Unsat Iron Binding 135 <PAOLO Phillips - Last Filed: 01/19/21 10:08> Imaging Radiologist's impression: Impressions Chest X-Ray 01/18/21 11:55 IMPRESSION: Small bilateral pleural effusions, left greater than right. <PAOLO Phillips - Last Filed: 01/19/21 10:08> Progress Note: A&P Assessment and plan (1) CHF (congestive heart failure): Status: Acute <PAOLO Phillips - Last Filed: 01/19/21 10:08> Assessment and Plan: Treated for acute systolic CHF this admit.? Echo shows EF 45-50%, WMA suggestive of CAD, mild increase in RV size and decrease in RV systolic function, mild to mod increase in RVSP, small pericardial effusion. Fluid balance neg 5 liters. Clinically improved. CXR yesterday shows small bilateral pleural effusions, L>R, which is much improved from admit. Cr down to 1.19 yesterday. BNP 513 yesterday, had been 1684 on admit. Sat 97% on room air. Imdur and Aldactone added this admit. Home Lisiniopril initially stopped due to MYNOR then started on Valsartan which she is tolerating. Will start on Lasix 20mg po daily. Can be discharged from cardiology perspective and we will arrange for outpt cardiology follow up. <PAOLO Phillips - Last Filed: 01/19/21 10:08> Treated for acute systolic CHF this admit.? Echo shows EF 45-50%, WMA suggestive of CAD, mild increase in RV size and decrease in RV systolic function, mild to mod increase in RVSP, small pericardial effusion. Fluid balance neg 5 liters. Clinically improved. CXR yesterday shows small bilateral pleural effusions, L>R, which is much improved from admit. Cr down to 1.19 yesterday. BNP 513 yesterday, had been 1684 on admit. Sat 97% on room air. Imdur and Aldactone added this admit. Home Lisiniopril initially stopped due to MYNOR then started on Valsartan which she is tolerating. Will start on Lasix 20mg po daily. Can be discharged from cardiology perspective and we will arrange for outpt cardiology follow up. Patient seen and case discussed with Nguyen Brownlee. Patient feeling well today. No shortness of breath. Responded to treatment very well. However she has high risk for underlying ischemic heart disease and coronary artery disease as a cause for heart failure. Cannot assess her coronary artery disease and ischemia adequately due to her significant anemia. Risk associated with this was discussed with her. She is still very adamant about not under going transfusion. Will follow as outpatient. Hopefully hematocrit improves and can perform stress testing as an outpatient. Meanwhile continue her medical therapy including Aldactone, MD Maddy or, metoprolol. Please add Lasix 20 mg to regimen. Will follow-up as outpatient. Heart failure education to be provided. <Micky Cotton MD - Last Filed: 01/19/21 12:27> (2) Elevated troponin: Status: Acute <Nguyen Brownlee NP-Ty - Last Filed: 01/19/21 10:08> Assessment and Plan: Episode of CP few days ago in setting of reported panic attack. Mild trop elevation up to 29. EKG SR, RBBB no ischemia. Echo did show WMA suggestive of CAD. Pharm nuclear stress test had been planned however has significant anemia with Hgb 7.4 yesterday. She refused blood transfusion inspite of education on benefits of it. Pt informed of test results and presumed CAD, risk for MO, s/s angina. She states understanding. Will Cx stress test. Unable to perform cardiac cath with her anemia at present. She has been started on Metoprolol. Recommend start of statin if no contrainidications. She tells me she has never taken cholesterol lowering agents in past. We will follow her as outpt. <PAOLO Phillips - Last Filed: 01/19/21 10:08> (3) Abnormal finding on echocardiogram: Status: Acute <PAOLO Phillips - Last Filed: 01/19/21 10:08> (4) Chest pain: Status: Acute <PAOLO Phillips - Last Filed: 01/19/21 10:08> Assessment and Plan: No recurrent <PAOLO Phillips - Last Filed: 01/19/21 10:08> (5) Acute worsening of stage 3 chronic kidney disease: Status: Acute <PAOLO Phillips - Last Filed: 01/19/21 10:08> Assessment and Plan: Hx CKD. Cr up to 1.5s this admit. Yesterday down to 1.19. Follows with nephrology <PAOLO Phillips - Last Filed: 01/19/21 10:08> Fall Risk Details Current Medications: Current Medications Acetaminophen (Acetaminophen 325 Mg Tablet) 650 mg PO Q6H PRN PRN Reason: Pain, Mild (Pain Scale 1-3) Last Admin: 01/17/21 17:39 Dose: 650 mg Documented by: Acetaminophen/Butalbital/Caffeine (Butalb/Acetamin/Caff 50/325/40 Tablet) 1 tab PO Q6H PRN PRN Reason: Headache Last Admin: 01/17/21 19:55 Dose: 1 tab Documented by: Amlodipine Besylate (Amlodipine Besylate 10 Mg Tablet) 10 mg PO DAILY [facility]AS[facility]; Protocol Last Admin: 01/18/21 08:13 Dose: 10 mg Documented by: Dextrose (Dextrose 50 % 25 Gm/50 Ml Vial) 25 gm IVPUSH Q15M PRN; Protocol PRN Reason: per Hypoglycemia Standing Ord. Diphenhydramine HCl (Diphenhydramine Hcl 25 Mg Tablet) 25 mg PO Q6H PRN PRN Reason: Itching Last Admin: 01/17/21 19:55 Dose: 25 mg Documented by: Furosemide (Furosemide 20 Mg Tablet) 20 mg PO DAILY VASILE; Protocol Glucose (Glucose Gel 15 Gm Gel..Gram.) 15 gm PO Q15M PRN; Protocol PRN Reason: per Hypoglycemia Standing Ord. Guaifenesin/Dextromethorphan (Guaifenesin Dm 200/20/10 Ml 10 Ml Syrup) 10 ml PO Q6H [facility] Last Admin: 01/19/21 01:54 Dose: 10 ml Documented by: Hydroxyzine HCl (Hydroxyzine Hcl 25 Mg Tablet) 25 mg PO Q6H PRN PRN Reason: anxiety/restlessness Meropenem 1 gm/ Sodium (Chloride) 100 mls @ 100 mls/hr IV Q8H [facility] Last Infusion: 01/19/21 05:46 Dose: Infused Documented by: Insulin Glargine (Insulin Glargine,Hum.Rec.Anlog 100 Unit/Ml 10 Ml Vial) 10 unit SUBCUT DAILY [facility] Last Admin: 01/18/21 08:16 Dose: 10 unit Documented by: Insulin Human Lispro (Insulin Lispro 100 Unit/Ml 3 Ml Vial) 0 unit SUBCUT QIDACHS [facility]; Protocol Last Admin: 01/19/21 07:36 Dose: Not Given Documented by: Isosorbide Mononitrate (Isosorbide Mononitrate 30 Mg Tab.Er.24h) 30 mg PO DAILY [facility]; Protocol Last Admin: 01/18/21 08:14 Dose: 30 mg Documented by: Lidocaine (Lidocaine 4 % Patch Adh..Patch) 1 patch TRANSDERMA DAILY [facility]; Protocol Last Admin: 01/18/21 08:15 Dose: 1 patch Documented by: Metoprolol Tartrate (Metoprolol Tartrate 25 Mg Tablet) 25 mg PO BID [facility]; Protocol Last Admin: 01/18/21 19:41 Dose: 25 mg Documented by: Ondansetron HCl (Ondansetron Hcl 4 Mg/2 Ml Vial) 4 mg IVPUSH Q8H PRN PRN Reason: Nausea and Vomiting Last Admin: 01/17/21 05:39 Dose: 4 mg Documented by: Oxycodone HCl (Oxycodone Hcl Immed Release 5 Mg Tablet) 5 mg PO Q6H PRN PRN Reason: Pain, Severe (Pain Scale 7-10) Last Admin: 01/19/21 00:28 Dose: 5 mg Documented by: Pharmacy Consult (Consult Rx Perform Med Rec) 1 each MISCELLANE ONCE PRN PRN Reason: Consult order Sertraline HCl (Sertraline Hcl 25 Mg Tablet) 25 mg PO DAILY [facility] Last Admin: 01/18/21 08:15 Dose: 25 mg Documented by: Sodium Chloride (0.9 % Sodium Chloride Flush 3 Ml Syringe) 3 ml IVFLUSH QSHIFT [facility] Last Admin: 01/19/21 00:32 Dose: Not Given Documented by: Spironolactone (Spironolactone 25 Mg Tablet) 50 mg PO DAILY [facility]; Protocol Last Admin: 01/18/21 08:15 Dose: 50 mg Documented by: Valsartan (Valsartan 40 Mg Tablet) 40 mg PO BID [facility]; Protocol Last Admin: 01/18/21 19:40 Dose: 40 mg Documented by: <PAOLO Phillips - Last Filed: 01/19/21 10:08> Time Spent With Patient Time: Total time spent is greater than 50% in coordination of care (as documented) at patient's floor/unit and/or counseling patient: 24 <PAOLO Phillips - Last Filed: 01/19/21 10:08> Time with patient: 15 - 24 minutes <PAOLO Phillips - Last Filed: 01/19/21 10:08> Progress Note: Quality Stroke Does the patient have a stroke diagnosis?: No <PAOLO Phillips - Last Filed: 01/19/21 10:08> Procedures Date of Service Date of Service: 01/19/21 <PAOLO Phillips - Last Filed: 01/19/21 10:08>
[2021-01-19 10:08] VITALS: BP 132/72; PULSE 89
[2021-01-19] MEDS: Valsartan 40 MG TABLET PO (10:08)
[2021-01-19] MEDS: Isosorbide Mononitrate 30 MG TAB.ER.24H PO (10:08)
[2021-01-19 10:09] VITALS: BP 132/72; PULSE 89
[2021-01-19] MEDS: Spironolactone 25 MG TABLET 50 MG PO (10:09)
[2021-01-19] MEDS: amLODIPine Besylate 10 MG TABLET PO (10:09)
[2021-01-19] MEDS: 0.9 % Sodium Chloride Flush 3 ML SYRINGE IVFLUSH (10:09)
[2021-01-19] MEDS: Lidocaine 4 % Patch ADH..PATCH 1 PATCH TRANSDERMA (10:09)
[2021-01-19 10:10] VITALS: BP 132/72; PULSE 89
[2021-01-19] MEDS: Sertraline HCL 25 MG TABLET PO (10:10)
[2021-01-19] MEDS: Insulin Glargine,Hum.rec.anlog 100 UNIT/ML 10 ML VIAL 10 UNIT SUBCUT (10:10)
[2021-01-19] MEDS: Furosemide 20 MG TABLET PO (10:10)
[2021-01-19] MEDS: Metoprolol Tartrate 25 MG TABLET PO (10:10)
[2021-01-19 11:07] LABS: Glucose, Whole Blood 153 mg/dL (60-115)
--- NOTE | 2021-01-19 13:12 | P.DS_ITS ---
DS: Providers Provider Date of Service: 01/19/21 Date of admission: 01/14/21 13:12 Primary care physician: Abdon Beard MD Consults: 01/14/21 13:27 Consult to Infectious Diseases Routine Consulting Provider: Yamilet Diallo Reason for consultation: cellulitis Has provider been notified: No 01/14/21 13:29 Consult to Cardiology Routine Consulting Provider: Vinny Vera Reason for consultation: chf Has provider been notified: No 01/15/21 13:25 Consult to Nephrology Routine Consulting Provider: Jose Manuel Devine Reason for consultation: mynor/dm Has provider been notified: No DS: Diagnosis Discharge Diagnosis (1) CHF (congestive heart failure): Status: Acute (2) Elevated troponin: Status: Acute (3) Abnormal finding on echocardiogram: Status: Acute (4) Chest pain: Status: Acute (5) Acute worsening of stage 3 chronic kidney disease: Status: Acute DS: Summary Hospital Course Hospital Course: Hospital Course by discharge diagnosis: 1. Sepsis secondary to RLE Cellulitis With signs and symptoms of sepsis secondary to cellulitis. She was treated with IV Merrem due to her history of ESBL. She was evaluated by Infectious Disease. Her blood cultures returned positive for Acinetobacter and Staph Sciuri but infectious Disease felt that these were likely contaminant. Repeat blood cultures were negative. Infectious Disease recommended 750 mg of Levaquin for 14 days. Her IV antibiotics from previous admission have finished and her PICC line has been discontinued. 2. new onset heart failure reduced ejection fraction Patient presented with respiratory distress and was found to have bilateral ple ural effusions. She underwent a thoracentesis. Her echo showed mildly reduced EF of around 45-50%. She was treated with IV diuretics and subsequently transitioned to oral Lasix which he will be discharged on. In inpatient stress test was initially recommended but ultimately was discontinued. The patient's hemoglobin was low and she had refused packed red cell transfusion. 3. MYNOR on CKD due to diabetic nephropathy improved with diuresis. she will be following cardiology 4. Uncontrolled HTN started on multiple meds -- see d/c list 5. Uncontrolled DM had episodes of hypoglycemia due to poor oral intake, but this has resolved. 6. Normocytic anemia related to renal disease and no edvience of acute blood loss. She has refused prbc transfusion as well as procrit. Time Spent with Patient Time attestation: Total time spent providing and/or coordinating discharge services: Discharge coordination time: Greater than 30 minutes Quality: Stroke Does the patient have a stroke diagnosis?: No Physical Exam Vital Signs: Vital Signs: Last Vital Signs Temp 97.3 F 01/19/21 07:26 Pulse 89 01/19/21 10:10 Resp 18 01/19/21 07:26 BP 132/72 01/19/21 10:10 Pulse Ox 97 01/19/21 07:26 Oxygen Flow Rate 2 01/14/21 04:33 Body Mass Index 32.3 Const: Other: Gen - awake and alert, eyes closed HEENT - R cornea opaque, no JVD CVS - S1S2, tachy in the 110s Lungs - Dim, no hypoxia or respiratory distress this AM Abd - soft, nt/nd Ext (lower) - 1st and fifth toe ampuations on L; R TMA with superficial ulcer on medial / lateral margin; RLE swelling and erythema significantly improved Neuro - aaox;3 moving all 4 limbs equally, speech clear Skin? no Rash DS: Data Data Completed and Pending Completed studies during hospitalization [Text1]: Procedures Detachment at Right Foot, Partial 1st Ray, Open Approach (03/01/20) Detachment at Right Foot, Partial 2nd Ray, Open Approach (03/01/20) Detachment at Right Foot, Partial 3rd Ray, Open Approach (03/01/20) Detachment at Right Foot, Partial 4th Ray, Open Approach (03/01/20) Detachment at Right Foot, Partial 5th Ray, Open Approach (03/01/20) Insertion of Infusion Device into Superior Vena Cava, Percutaneous Approach (12/06/20) Labs on day of discharge: Laboratory Results - last 24 hr 01/18/21 01/18/21 01/19/21 16:16 19:47 06:12 WBC RBC Hgb Hct MCV MCH MCHC RDW Plt Count MPV Absolute Nucleated RBC Nucleated RBC % (auto) Sodium 137 Potassium 3.6 Chloride 105 Carbon Dioxide 25 Anion Gap 11 L BUN 23 H Creatinine 1.19 Estim Creat Clear Calc 77.0 Estimated GFR 53 POC Glucose 147 H 183 H Random Glucose 150 H Calcium 6.9 L Iron 31 TIBC 166 L % Saturation 19 Unsat Iron Binding 135 01/19/21 01/19/21 01/19/21 07:15 09:09 11:03 WBC 4.5 L RBC 3.09 L Hgb 7.8 L Hct 25.2 L MCV 81.6 MCH 25.2 L MCHC 31.0 RDW 15.1 Plt Count 172 MPV 11.3 Absolute Nucleated RBC 0.000 Nucleated RBC % (auto) 0.0 Sodium Potassium Chloride Carbon Dioxide Anion Gap BUN Creatinine Estim Creat Clear Calc Estimated GFR POC Glucose 127 H 153 H Random Glucose Calcium Iron TIBC % Saturation Unsat Iron Binding Preliminary micro results at discharge 01/14/21 15:23 Anaerobic Culture - Preliminary Thoracentesis Fluid No growth to date. 01/15/21 09:21 Blood Culture - Preliminary Blood - Venous No growth after 48 hours. 01/15/21 09:20 Blood Culture - Preliminary Blood - Venous No growth after 48 hours. Discharge Plan Discharge Patient Disposition: Home, Self-Care Discharge Diagnosis: Cellulitis CHF Referrals: Abdon Beard MD [Primary Care Provider] - 1 Week Discharge Medications: New isosorbide mononitrate 30 mg Tablet Extended Release 24 Hr 30 mg PO DAILY Qty: 30 RF: 0 spironolactone 25 mg Tablet 50 mg PO DAILY Qty: 30 RF: 0 amlodipine 10 mg Tablet 10 mg PO DAILY Qty: 30 RF: 0 furosemide 20 mg Tablet 20 mg PO DAILY Qty: 30 RF: 0 valsartan 40 mg Tablet 40 mg PO BID Qty: 60 RF: 0 metoprolol tartrate 25 mg Tablet 25 mg PO BID Qty: 60 RF: 0 levofloxacin 750 mg tablet 750 mg PO DAILY Qty: 14 RF: 0 Continued insulin aspart U-100 [Novolog Flexpen U-100 Insulin] 100 unit/mL (3 mL) insulin pen See Protocol unit subcut DIRECTED PRN (Reason: Hyperglycemia) RF: 0 Jardiance 10 mg tablet 1 tab PO QAM RF: 0 sertraline 25 mg tablet 1 tab PO DAILY RF: 0 ferrous sulfate 325 mg (65 mg iron) tablet 325 mg PO DAILY Qty: 30 RF: 0 Levemir FlexTouch U-100 Insuln 100 unit/mL (3 mL) insulin pen 20 unit subcut DAILY Qty: 0 RF: 0 Discontinued lisinopril 20 mg tablet 1 tab PO DAILY RF: 0 amlodipine 2.5 mg tablet 1 tab PO DAILY RF: 0 ertapenem [Invanz] 1 gram Recon Soln 1 g IV DAILY Qty: 36 RF: 0 Discharge Orders: Discharge Order (Routine); Ordered 01/19/21 Ordered By: Efraín Weeks Diet: advance to usual diet Activity on Discharge: As tolerated Stand Alone Forms: Patient Portal Discharge page Care Plan Goals: To stay healthy and out of the hospital. Health Concerns: Cellulitis Congestive heart failure Chronic kidney disease Diabetes Plan of Treatment: Take Levaquin for 14 days You have been started on multiple new medications for your blood pressure and yo ur heart. Please follow-up with Cardiology and Nephrology Clinic. Take your insulin as you have been doing so previously. Assessment: see d/c summary Discharge Date/Time: 01/19/21 14:37
--- NOTE | 2021-01-19 13:49 | HO.MIDLINE ---
PICC Line Insertion PICC REMOVAL Diagnosis: [CELLULITIS] Indication: [NO LONGER NEEDED] Pertinent Labs: [REVIEWED] Technique: REMOVAL OF PICC LINE DATE: 01/19/2021 REASON REMOVED: NO LONGER NEEDED INSERTED LENGTH: 38CM SINGLE LUMEN PICC REMOVED LENGTH: 38CM INTACT REMOVED FROM RIGHT BRACHIAL VEIN . A DRESING (XEROFORM AND 2X2 WITH TEGARDERM) WAS PLACED OVER THE SITE UPON REMOVAL. NO EDEMA OR BLEEDING AT SITE. PT TOLATERED THE REMOVAL OF HER PICC LINE.
--- NOTE | 2021-01-19 14:05 | PM.PNNEP ---
Subjective Subjective Date of Service: 01/19/21 Principal diagnosis: CHF, pleural effusion, MYNOR on CKD, elevated Trop Interval history: seen and examined this AM Anxious to be discharged home Refusing transfusion Physical Exam Vital Signs: Vital Signs: Last Vital Signs Temp 97.3 F 01/19/21 07:26 Pulse 89 01/19/21 10:10 Resp 18 01/19/21 07:26 BP 132/72 01/19/21 10:10 Pulse Ox 97 01/19/21 07:26 Oxygen Flow Rate 2 01/14/21 04:33 Body Mass Index 32.3 Other:?Gen - awake and alert, eyes closed HEENT - R cornea opaque, no JVD CVS - S1S2, tachy in the 110s Lungs - Dim, no hypoxia or respiratory distress this AM Abd - soft, nt/nd Ext (lower) - ++ edema Neuro - aaox;3 moving all 4 limbs equally, speech clear Skin? -no Ra Objective Data Labs CBC & Chem 7: 01/19/21 09:09 01/19/21 06:12 Labs: Laboratory Results - last 24 hr 01/18/21 01/18/21 01/19/21 16:16 19:47 06:12 WBC RBC Hgb Hct MCV MCH MCHC RDW Plt Count MPV Absolute Nucleated RBC Nucleated RBC % (auto) Sodium 137 Potassium 3.6 Chloride 105 Carbon Dioxide 25 Anion Gap 11 L BUN 23 H Creatinine 1.19 Estim Creat Clear Calc 77.0 Estimated GFR 53 POC Glucose 147 H 183 H Random Glucose 150 H Calcium 6.9 L Iron 31 TIBC 166 L % Saturation 19 Unsat Iron Binding 135 01/19/21 01/19/21 01/19/21 07:15 09:09 11:03 WBC 4.5 L RBC 3.09 L Hgb 7.8 L Hct 25.2 L MCV 81.6 MCH 25.2 L MCHC 31.0 RDW 15.1 Plt Count 172 MPV 11.3 Absolute Nucleated RBC 0.000 Nucleated RBC % (auto) 0.0 Sodium Potassium Chloride Carbon Dioxide Anion Gap BUN Creatinine Estim Creat Clear Calc Estimated GFR POC Glucose 127 H 153 H Random Glucose Calcium Iron TIBC % Saturation Unsat Iron Binding Microbiology Microbiology Results: Microbiology 01/14/21 11:32 Blood - Venous Blood Culture - Final Staphylococcus sciuri Acinetobacter baumannii 01/14/21 15:23 Thoracentesis Fluid Gram Stain - Final 01/14/21 15:23 Thoracentesis Fluid Anaerobic Culture - Preliminary No growth to date. 01/14/21 15:23 Thoracentesis Fluid Body Fluid Culture - Final No growth after 2 days 01/15/21 09:21 Blood - Venous Blood Culture - Preliminary No growth after 48 hours. 01/15/21 09:20 Blood - Venous Blood Culture - Preliminary No growth after 48 hours. 01/14/21 10:27 Blood - Venous Blood Culture - Final Staphylococcus sciuri Acinetobacter baumannii Procedures Date of Service Date of Service: 01/19/21 Assessment & Plan Assessment and plan (1) MYNOR (acute kidney injury): Status: Acute Assessment and Plan: 1. MYNOR - Due to renal hypoperfusion/ Acute Tubular injury- resolved No [place] on renal USG [place] Had a CTA on 01/14 - KP is also a possibility but MYNOR before the IV Dye CKD stage 3 at baseline 2. Sepsis secondary to RLE cellutils-Polymicrobial bacteremi 3. Generalized Anasarca cardiac vs renal as primary cause 4. Acute HFrEF 5. Pl effusion /Pericardial effusion, small? (per echo) 6. DM with diabetic retinopathy -- is legally blind 7.? HTN improved -- better control on metoprolol 25mg bid, valsartan 40mg bid, norvasc 10mg, aldactone 50mg, imdur 30mg Fluid reastriction 1500 ml/ day Low salt diet On Valsartan - watch renal function Antibiotics as per medical team Pt refused Epo Diuretics as per medical team Pt on Aldactone 50 mg daily For d/c d/w Medical team thx Will follow Dr. Ruiz Time Spent With Patient Time: Total time spent is greater than 50% in coordination of care (as documented) at patient's floor/unit and/or counseling patient: Progress Note: Quality Stroke Does the patient have a stroke diagnosis?: No
--- NOTE | 2021-01-19 14:56 | MHC.CM.PN ---
pt dcd home no skilled services ordered phyllis luke md
== END 2021-01-19 14:37 | disposition home or self-care (01) | DRG 871 ==
LOC: HO.ED 12:06 → HO.EDOVER 13:33 → HO.IMC 01-15 04:49
PROVIDERS: Internal Medicine; Nurse Practitioner Family; Radiology Diagnostic Radiology; Admitting Provider Hospitalist; Emergency Provider Emergency Medicine; PCP Internal Medicine; Visit Provider Family Medicine
DX: A41.9 Sepsis, unspecified organism (principal); I13.0 Hypertensive heart and chronic kidney disease with heart failure and stage 1 through stage 4 chronic kidney disease, or unspecified chronic kidney disease; I50.21 Acute systolic (congestive) heart failure; L03.115 Cellulitis of right lower limb; N17.9 Acute kidney failure, unspecified; E11.22 Type 2 diabetes mellitus with diabetic chronic kidney disease; N18.30 Chronic kidney disease, stage 3 unspecified; E11.319 Type 2 diabetes mellitus with unspecified diabetic retinopathy without macular edema; E11.40 Type 2 diabetes mellitus with diabetic neuropathy, unspecified; R00.0 Tachycardia, unspecified; H54.8 Legal blindness, as defined in USA; Z20.822 Contact with and (suspected) exposure to COVID-19; Z88.5 Allergy status to narcotic agent; Z79.4 Long term (current) use of insulin; Z79.899 Other long term (current) drug therapy
CPT/HCPCS: 32557; 36415; 36584; 71045; 71046; 71275; 76775; 80048; 80053; 81001; 82042; 82150; 82945; 82947; 83540; 83605; 83615; 83880; 83986; 84157; 84484; 84702; 85025; 85027; 85610; 85730; 87040; 87070; 87073; 87077; 87186; 87205; 87635; 93005; 93306; 93975; 94640; 94660; 96361; 96365; 96375; 96376; 99285; C1751; J1200; J1940; J2060; J2185; J2270; J2405; Q0163; Q9967

== ENCOUNTER 2021-02-02 02:09 | Emergency (ER) | payer OTHER, SELFPAY ==
[2021-02-02] VITALS (12 sets, daily range): BP systolic 159–204; BP diastolic 98–117; PULSE 89–138; RESP 16–24; TEMP 37.2–37.9; O2SAT 91–100; BMI 32.3
--- NOTE | ~2021-02-02 | XR_ITS ---
EXAMINATION: XR CHEST CLINICAL INFORMATION: Shortness of breath COMPARISON: 01/18/2021 TECHNIQUE: Frontal view of the chest was obtained. FINDINGS: Low lung volumes. No parenchymal consolidation. No pleural effusion. No pneumothorax. Cardiomediastinal silhouette and pulmonary vascularity are within normal limits. No acute osseous abnormalities. XR/XR chest 1V IMPRESSION: No acute findings
[2021-02-02 02:43] LABS: Basophils Percent Auto 0.4 % (0-2); Eosinophils Percent Auto 0.2 % (0-4); Hematocrit 33.8 % (37.0-47.0); Hemoglobin 10.8 g/dl (12.0-16.0); Imm Gran Abs Auto 0.05 X10*3/uL (0.00-0.03); Imm Gran Pct Auto 0.5 % (0.0-0.4); Lymphocytes Absolute Auto 0.6 X10*3/uL (1.2-4.9); Lymphocytes Percent Auto 5.5 % (20-40); MANUAL DIFF FLAG NO; Mean Corpuscular Hemoglobin 25.5 pg (27.0-33.0); Mean Corpuscular Volume 79.7 fL (80.0-98.0); Mean Platelet Volume 10.3 fL (9.4-12.3); Monocytes Absolute Auto 0.4 X10*3/uL (0.1-1.2); Monocytes Percent Auto 3.8 % (2-11); Neutrophils Absolute Auto 9.3 x10*3/uL (2.0-8.3); Neutrophils Percent Auto 89.6 % (45-73); Platelet Count 345 X10*3/uL (160-400); Red Blood Count 4.24 X10*6/uL (4.20-5.50); Red Cell Distribution Width 15.4 % (11.0-16.0); White Blood Count 10.3 X10*3/uL (4.8-10.8)
[2021-02-02 02:59] LABS: Anion Gap 13 (12-20); Blood Urea Nitrogen 12 mg/dL (9-16); Calcium 8.6 mg/dL (8.4-10.2); Carbon Dioxide 21 mmol/L (22-29); Chloride 110 mmol/L (96-108); Creatinine Clr Calc Pharmacy 59.5; Estimated Glomerular Filt Rate 39; Glucose Random 145 mg/dL (60-115); Potassium 4.2 mmol/L (3.3-5.1); Sodium 140 mmol/L (135-145)
[2021-02-02 03:00] LABS: COVID-19 Test Negative (Negative); IDNOW Serial# 9DD0AD1C
[2021-02-02 03:03] LABS: Troponin-I High Sensitivity 13.9 ng/L (<3.5-17.0)
[2021-02-02] MEDS: amLODIPine Besylate 10 MG TABLET PO (03:10)
[2021-02-02] MEDS: 0.9 % Sodium Chloride 1,000 ML 999 ML IV ×2 (03:11→05:29)
[2021-02-02] MEDS: HYDROmorphone HCl 0.5 MG/0.5 ML SYRINGE IVPUSH ×2 (03:12→05:47)
[2021-02-02] MEDS: guaiFEN/Codeine SF 200/20/10ML 10 ML LIQUID PO (04:15)
--- NOTE | 2021-02-02 04:38 | ED_ITS ---
HPI - Chest Pain General Chief Complaint: Chest Pain Stated Complaint: flu like symptoms Time Seen by Provider: 02/02/21 02:59 History of Present Illness HPI narrative: Patient 30-year-old female presents today with having coughing upper respiratory symptoms. Positive history of diabetes. Positive history of hypertension. Baseline takes insulin in the evenings. Patient took her evening dose. Coughing getting worse over the last 24-48 hours. Nonproductive in nature. Patient did have her COVID vaccine. Patient denies any focal weakness. Positive generalized malaise. No nausea no vomiting. No diaphoresis. Related Data Home Medications Medication Instructions Recorded Confirmed empagliflozin 10 mg tablet 1 tab PO QAM 12/07/20 01/14/21 (Jardiance) insulin aspart U-100 100 unit/mL See Protocol SUBCUT DIRECTED PRN 12/07/20 01/14/21 (3 mL) subcutaneous pen (Novolog Flexpen U-100 Insulin aspart) sertraline 25 mg tablet 1 tab PO DAILY 12/07/20 01/14/21 Previous Rx's Medication Instructions Recorded ferrous sulfate 325 mg (65 mg 325 mg PO DAILY #30 tab 12/11/20 iron) tablet insulin detemir U-100 100 unit/mL 20 unit (0.2 mL) SUBCUT DAILY #0 ml 12/11/20 (3 mL) subcutaneous pen (Levemir FlexTouch U-100 Insulin) amlodipine 10 mg tablet 10 mg PO DAILY #30 tab 01/19/21 furosemide 20 mg tablet 20 mg PO DAILY #30 tab 01/19/21 isosorbide mononitrate 30 mg 30 mg PO DAILY #30 tab 01/19/21 tablet,extended release 24 hr levofloxacin 750 mg tablet 750 mg PO DAILY #14 tab 01/19/21 metoprolol tartrate 25 mg tablet 25 mg PO BID #60 tab 01/19/21 spironolactone 25 mg tablet 50 mg PO DAILY #30 tab 01/19/21 valsartan 40 mg tablet 40 mg PO BID #60 tab 01/19/21 dextromethorphan-guaifenesin 5 10 ml PO Q4-8H PRN #118 ml 02/02/21 mg-100 mg/5 mL oral liquid (Robitussin Cough-Chest Congestion DM) doxycycline hyclate 100 mg capsule 100 mg PO BID 7 Days #14 cap 02/02/21 Allergies Allergy/AdvReac Type Severity Reaction Status Date / Time morphine [MORPHINE] Allergy Intermediate Itching Verified 01/14/21 07:31 Review of Systems Review of Systems: Positive coughing upper respiratory symptoms Positive generalized malaise All system reviewed otherwise negative [facility] Past Medical History Attestation statement: The following information was validated with the patient. Medical History Abnormal finding on echocardiogram Acute dyspnea Acute worsening of stage 3 chronic kidney disease MYNOR (acute kidney injury) Asthma Back pain Blind right eye Bone infection Cellulitis Cellulitis and abscess of foot Chest pain CHF (congestive heart failure) Depression with anxiety Diabetes Diabetic retinopathy DM foot ulcer Elevated troponin Essential hypertension Fever Generalized edema HTN (hypertension) Migraine Osteomyelitis PAD (peripheral artery disease) Pleural effusion test positive test positive Sepsis Severe anemia Tachycardia Type 2 diabetes mellitus with hyperglycemia, with long-term current use of insulin Surgical History History of transmetatarsal amputation of foot S/P transmetatarsal amputation of foot Family History Family History Mother Coronary artery disease Myocardial infarction Stroke Diabetes mellitus Father Myocardial infarction Social History Social History Household Members: Significant Other Household Members Other:: Sister, [id number], nephew Housing: Apartment Do you presently have visiting nurse or other home services: Yes (E[employer] services) Alcohol intake: never Patient Tobacco Use Status: Never used Tobacco e-Cigarette/Vaping Use: Never Used Second Hand Smoke Exposure: No Use of substances other than those prescribed or required for medical reasons: No Advance Directives: No Advance Directives Information Provided: No service: No Current occupational status: unemployed and disabled Gender identity: Female Physical Exam Vital Signs: Vital Signs: Last Vital Signs Temp 100.2 F 02/02/21 06:28 Pulse 121 H 02/02/21 06:28 Resp 18 02/02/21 06:28 BP 187/103 H 02/02/21 06:31 Pulse Ox 94 02/02/21 06:31 BMI result Body Mass Index 32.3 Appearance: Alert. Oriented X3. No acute distress. Eyes: Pupils equal, round and reactive to light. ENT: Pharynx normal. Neck: Normal inspection. Neck supple. No lymph nodes noted. No crepitus CVS: Normal heart rate and rhythm. Pulses normal. Normal S1 and S2 Respiratory: No respiratory distress. Breath sounds normal. No Wheezing. No rales Abdomen: Soft and nontender. No rigidity. No distention. good BS x4 Skin: Skin warm and dry. Normal skin color. Normal skin turgor. Extremities: No lower extremity edema. Neurovascular intact to all extremities. No Lacerations. No Rash Neuro: Oriented X 3. No motor deficit. No sensory deficit. Moving all extermities. No slurred speech MDM - Chest Pain MDM Narrative Medical decision making narrative: Patient's COVID test was negative. Electrolytes unremarkable. Flu RSV negative. Chest x-ray negative for pneumonia. Positive coughing upper respiratory symptoms will start patient on doxycycline for bronchitis. Cough medication. Will have patient closely fol lowed for hypertension. In stable condition with discharge home. Patient's O2 sat 97% on room air. Patient's blood pressure elevated in the emergency department. Explained to patient the need for close follow-up. Patient given a dose of amlodipine here in the emergency department. In stable condition. Given multiple L of IV fluid for hydration. Medical Records Data Attestation: I reviewed the patient's medical records. Lab Data Attestation: I reviewed the patient's lab results. Result diagrams: 02/02/21 02:39 02/02/21 02:39 Labs: Lab Results 02/02/21 02/02/21 02/02/21 Range/Units 02:39 02:39 02:39 WBC 10.3 (4.8-10.8) X10*3/uL RBC 4.24 D (4.20-5.50) X10*6/uL Hgb 10.8 L D (12.0-16.0) g/dl Hct 33.8 L D (37.0-47.0) % MCV 79.7 L (80.0-98.0) fL MCH 25.5 L (27.0-33.0) pg MCHC 32.0 (31.0-35.0) g/dl RDW 15.4 (11.0-16.0) % Plt Count 345 D (160-400) X10*3/uL MPV 10.3 (9.4-12.3) fL Immature Gran % (Auto) 0.5 H (0.0-0.4) % Neut % (Auto) 89.6 H (45-73) % Lymph % (Auto) 5.5 L (20-40) % Martin % (Auto) 3.8 (2-11) % Eos % (Auto) 0.2 (0-4) % Baso % (Auto) 0.4 (0-2) % Lymph # (Auto) 0.6 L (1.2-4.9) X10*3/uL Martin # (Auto) 0.4 (0.1-1.2) X10*3/uL Eos # (Auto) 0.0 (0.0-0.4) X10*3/uL Baso # (Auto) 0.0 (0.0-0.2) X10*3/uL Abs Immat Gran (auto) 0.05 H (0.00-0.03) X10*3/uL Absolute Neuts (auto) 9.3 H (2.0-8.3) x10*3/uL Absolute Nucleated RBC 0.000 (0.0-0.012) X10*3/uL Nucleated RBC % (auto) 0.0 (0.0-0.2) /100WBC Sodium 140 (135-145) mmol/L Potassium 4.2 (3.3-5.1) mmol/L Chloride 110 H (96-108) mmol/L Carbon Dioxide 21 L (22-29) mmol/L Anion Gap 13 (12-20) BUN 12 (9-16) mg/dL Creatinine 1.54 H (0.5-1.4) mg/dL Estim Creat Clear Calc 59.5 Estimated GFR 39 Random Glucose 145 H (60-115) mg/dL Calcium 8.6 D (8.4-10.2) mg/dL Troponin I High Sens (<3.5-17.0) ng/L COVID-19 (CARO) Negative (Negative) COVID-19 Clin Com See Note Influenza Type A (PCR) (Negative) Influenza Type B (PCR) (Negative) RSV RNA Qual (PCR) (Negative) SARS-CoV-2 RNA (RT-PCR) (Negative) 02/02/21 02/02/21 Range/Units 02:39 04:12 WBC (4.8-10.8) X10*3/uL RBC (4.20-5.50) X10*6/uL Hgb (12.0-16.0) g/dl Hct (37.0-47.0) % MCV (80.0-98.0) fL MCH (27.0-33.0) pg MCHC (31.0-35.0) g/dl RDW (11.0-16.0) % Plt Count (160-400) X10*3/uL MPV (9.4-12.3) fL Immature Gran % (Auto) (0.0-0.4) % Neut % (Auto) (45-73) % Lymph % (Auto) (20-40) % Martin % (Auto) (2-11) % Eos % (Auto) (0-4) % Baso % (Auto) (0-2) % Lymph # (Auto) (1.2-4.9) X10*3/uL [place] # (Auto) (0.1-1.2) X10*3/uL Eos # (Auto) (0.0-0.4) X10*3/uL Baso # (Auto) (0.0-0.2) X10*3/uL Abs Immat Gran (auto) (0.00-0.03) X10*3/uL Absolute Neuts (auto) (2.0-8.3) x10*3/uL Absolute Nucleated RBC (0.0-0.012) X10*3/uL Nucleated RBC % (auto) (0.0-0.2) /100WBC Sodium (135-145) mmol/L Potassium (3.3-5.1) mmol/L Chloride (96-108) mmol/L Carbon Dioxide (22-29) mmol/L Anion Gap (12-20) BUN (9-16) mg/dL Creatinine (0.5-1.4) mg/dL Estim Creat Clear Calc Estimated GFR Random Glucose (60-115) mg/dL Calcium (8.4-10.2) mg/dL Troponin I High Sens 13.9 (<3.5-17.0) ng/L COVID-19 (CARO) (Negative) COVID-19 Clin Com Influenza Type A (PCR) NEGATIVE (Negative) Influenza Type B (PCR) NEGATIVE (Negative) RSV RNA Qual (PCR) NEGATIVE (Negative) SARS-CoV-2 RNA (RT-PCR) NEGATIVE (Negative) Discharge Plan Discharge Clinical Impression: Bronchitis, Hypertension Patient Disposition: Home, Self-Care Instructions: Acute Bronchitis (ED), Hypertension (ED) Prescriptions: New doxycycline hyclate 100 mg capsule 100 mg PO BID 7 Days Qty: 14 RF: 0 Robitussin Cough-Chest Elio DM 5-100 mg/5 mL liquid 10 ml PO Q4-8H PRN (Reason: cough) Qty: 118 RF: 0 No Action insulin aspart U-100 [Novolog Flexpen U-100 Insulin] 100 unit/mL (3 mL) insulin pen See Protocol unit subcut DIRECTED PRN (Reason: Hyperglycemia) RF: 0 Jardiance 10 mg tablet 1 tab PO QAM RF: 0 sertraline 25 mg tablet 1 tab PO DAILY RF: 0 ferrous sulfate 325 mg (65 mg iron) tablet 325 mg PO DAILY Qty: 30 RF: 0 Levemir FlexTouch U-100 Insuln 100 unit/mL (3 mL) insulin pen 20 unit subcut DAILY Qty: 0 RF: 0 isosorbide mononitrate 30 mg Tablet Extended Release 24 Hr 30 mg PO DAILY Qty: 30 RF: 0 spironolactone 25 mg Tablet 50 mg PO DAILY Qty: 30 RF: 0 amlodipine 10 mg Tablet 10 mg PO DAILY Qty: 30 RF: 0 furosemide 20 mg Tablet 20 mg PO DAILY Qty: 30 RF: 0 valsartan 40 mg Tablet 40 mg PO BID Qty: 60 RF: 0 metoprolol tartrate 25 mg Tablet 25 mg PO BID Qty: 60 RF: 0 levofloxacin 750 mg tablet 750 mg PO DAILY Qty: 14 RF: 0 Referrals: Physician,Unknown J [Primary Care Provider] - 2 days
[2021-02-02 04:53] LABS: Influenza A PCR NEGATIVE (Negative); Influenza B PCR NEGATIVE (Negative); Resp Syncy Virus RNA Qual PCR NEGATIVE (Negative); SARS COV2 PCR INHOUSE NEGATIVE (Negative)
--- NOTE | 2021-02-02 06:31 | PC.NURSE ---
pt wakes up coughing, pt sat up due to pt spits up when coughing. sat improved to 94% from 88% sleeping.
== END 2021-02-02 08:09 | disposition home or self-care (01) ==
PROVIDERS: Emergency Provider Emergency Medicine Emergency Medical Services
DX: J40 Bronchitis, not specified as acute or chronic (principal); I11.0 Hypertensive heart disease with heart failure; I50.9 Heart failure, unspecified; E11.9 Type 2 diabetes mellitus without complications; Z20.822 Contact with and (suspected) exposure to COVID-19
CPT/HCPCS: 0241U; 36415; 71045; 80048; 84484; 85025; 87635; 96361; 96374; 96376; 99284; J1170

== ENCOUNTER 2021-04-21 20:56 | Emergency (ER) | payer OTHER, SELFPAY ==
--- NOTE | ~2021-04-21 | CT_ITS ---
EXAMINATION: CT ABDOMEN AND PELVIS WITHOUT CONTRAST CLINICAL INFORMATION: Right lower quadrant pain. COMPARISON: 10/24/2018 TECHNIQUE: Multidetector volumetric imaging was performed from the superior aspect of the liver through the pubic symphysis. Sagittal and coronal reformatted images were obtained on the technologist's workstation. This CT examination was performed using dose optimization techniques as appropriate, variously including the following: *Automated exposure control *Adjustment of mA and/or kV according to patient size (this includes techniques or standardized protocols for targeted exams where dose is matched to indication/reason for exam; i.e. extremities or head) *Use of iterative reconstruction technique DLP: 700 mGy-cm FINDINGS: LUNG BASES: The visualized lung bases are unremarkable. LIVER, GALLBLADDER, AND BILIARY TREE: The liver is normal in size, shape, and attenuation. No focal hepatic lesion or biliary ductal dilatation is present. Cholecystectomy. PANCREAS: Unremarkable. SPLEEN: Unremarkable. ADRENAL GLANDS: Unremarkable. KIDNEYS AND URETERS: The kidneys are normal in size, shape, and attenuation. No hydronephrosis, hydroureter, or calculi seen. No perinephric stranding. BLADDER: Unremarkable. GASTROINTESTINAL TRACT: Unremarkable stomach. Normal caliber small bowel. No obstruction. No colonic wall thickening or inflammatory change. Moderate colonic stool burden. Normal appendix. ABDOMINAL WALL: No significant hernia is appreciated. Mild anasarca. LYMPH NODES: Prominent retroperitoneal lymph nodes are noted. For instance there is a 1.5 cm short axis node posterior to the IVC at the level of the right kidney. There is a left retroperitoneal node measuring 1.3 cm.. VASCULAR: Unremarkable. PELVIC VISCERA: The uterus and adnexa are unremarkable. Trace pelvic free fluid likely physiologic. OSSEOUS STRUCTURES: No acute or suspicious osseous abnormality. Mild degenerative change of L4-L5 with endplate sclerosis. CT/CT abdomen pelvis wo con IMPRESSION: No acute findings in the abdomen or pelvis. No acute inflammatory change. Moderate colonic stool burden. Normal appendix. Fleischner guidelines were followed.
[2021-04-21 21:02] VITALS: BP 150/82; PULSE 112; O2SAT 99
[2021-04-21 21:18] VITALS: BP 165/87; PULSE 115; RESP 16; TEMP 36.9; O2SAT 99; BMI 28.7
--- NOTE | 2021-04-21 23:46 | ED_ITS ---
HPI - General Adult General Chief complaint: Abdominal Pain Stated complaint: ABD PAIN Time Seen by Provider: 04/21/21 23:43 History of Present Illness HPI narrative: Patient is a 30-year-old female with a history of diabetes, congestive heart failure, status post cholecystectomy history of acute renal disease presented today with having abdominal pain worse in the right lower quadrant. There is no coughing or congestion or upper respiratory symptoms. No chest pain. Patient claims that she has not had a good bowel movement. She was recently seen at [facility]. Patient denies any diaphoresis is passing gas. No chest pain. Immunized for COVID. Related Data Home Medications Medication Instructions Recorded Confirmed empagliflozin 10 mg tablet 1 tab PO QAM 12/07/20 01/14/21 (Jardiance) insulin aspart U-100 100 unit/mL See Protocol SUBCUT DIRECTED PRN 12/07/20 01/14/21 (3 mL) subcutaneous pen (Novolog Flexpen U-100 Insulin aspart) sertraline 25 mg tablet 1 tab PO DAILY 12/07/20 01/14/21 Previous Rx's Medication Instructions Recorded ferrous sulfate 325 mg (65 mg 325 mg PO DAILY #30 tab 12/11/20 iron) tablet insulin detemir U-100 100 unit/mL 20 unit (0.2 mL) SUBCUT DAILY #0 ml 12/11/20 (3 mL) subcutaneous pen (Levemir FlexTouch U-100 Insulin) amlodipine 10 mg tablet 10 mg PO DAILY #30 tab 01/19/21 furosemide 20 mg tablet 20 mg PO DAILY #30 tab 01/19/21 isosorbide mononitrate 30 mg 30 mg PO DAILY #30 tab 01/19/21 tablet,extended release 24 hr levofloxacin 750 mg tablet 750 mg PO DAILY #14 tab 01/19/21 metoprolol tartrate 25 mg tablet 25 mg PO BID #60 tab 01/19/21 spironolactone 25 mg tablet 50 mg PO DAILY #30 tab 01/19/21 valsartan 40 mg tablet 40 mg PO BID #60 tab 01/19/21 dextromethorphan-guaifenesin 5 10 ml PO Q4-8H PRN #118 ml 02/02/21 mg-100 mg/5 mL oral liquid (Robitussin Cough-Chest Congestion DM) doxycycline hyclate 100 mg capsule 100 mg PO BID 7 Days #14 cap 02/02/21 Allergies Allergy/AdvReac Type Severity Reaction Status Date / Time morphine [MORPHINE] Allergy Intermediate Itching Verified 01/14/21 07:31 azithromycin [From Zithromax] Allergy Hives Verified 04/21/21 21:21 vancomycin Allergy Hives Verified 04/21/21 21:21 Review of Systems Review of Systems: Positive right lower quadrant pain Positive decreased bowel movement Positive nausea No chest pain or diaphoresis Yes all other systems are reviewed and are negative [facility] Past Medical History Attestation statement: The following information was validated with the patient. Medical History Abnormal finding on echocardiogram Acute dyspnea Acute worsening of stage 3 chronic kidney disease MYNOR (acute kidney injury) Asthma Back pain Blind right eye Bone infection Cellulitis Cellulitis and abscess of foot Chest pain CHF (congestive heart failure) Depression with anxiety Diabetes Diabetic retinopathy DM foot ulcer Elevated troponin Essential hypertension Fever Generalized edema HTN (hypertension) Migraine Osteomyelitis PAD (peripheral artery disease) Pleural effusion test positive test positive Sepsis Severe anemia Tachycardia Type 2 diabetes mellitus with hyperglycemia, with long-term current use of insulin Surgical History History of transmetatarsal amputation of foot S/P transmetatarsal amputation of foot Family History Family History Mother Coronary artery disease Myocardial infarction Stroke Diabetes mellitus Father Myocardial infarction Social History Social History Household Members: Significant Other Household Members Other:: Sister, [id number], nephew Housing: Apartment Do you presently have visiting nurse or other home services: Yes ([employer] services) Alcohol intake: never Patient Tobacco Use Status: Never used Tobacco e-Cigarette/Vaping Use: Never Used Second Hand Smoke Exposure: No Advance Directives: No Patient : No service: No Current occupational status: unemployed and disabled Gender identity: Female Physical Exam ED Vital Signs: Vital Signs - 24 hr 04/21/21 21:18 04/22/21 00:00 04/22/21 00:19 Temperature 98.4 F 98.4 F Pulse Rate 115 H 102 H Respiratory Rate 16 15 15 Blood Pressure 165/87 H 152/64 H Pulse Oximetry 99 99 BMI result Body Mass Index 28.7 Appearance: Alert. Oriented X3. No acute distress. Eyes: Pupils equal, round and reactive to light. ENT: Pharynx normal. Neck: Normal inspection. Neck supple. No lymph nodes noted. No crepitus CVS: Normal heart rate and rhythm. Pulses normal. Normal S1 and S2 Respiratory: No respiratory distress. Breath sounds normal. No Wheezing. No rales Abdomen: Soft and nontender. No rigidity. No distention. good BS x4 Skin: Skin warm and dry. Normal skin color. Normal skin turgor. Extremities: No lower extremity edema. Neurovascular intact to all extremities. No Lacerations. No Rash Neuro: Oriented X 3. No motor deficit. No sensory deficit. Moving all extermities. No slurred speech Medical Decision Making MDM Narrative Medical decision making narrative: CT scan of the abdomen pelvis did not show any acute evidence of obstruction, abscess. Creatinine is baseline. Patient's white count is normal. test negative no evidence for ectopic. Will discharge patient home currently in stable condition. Lab Data Result diagrams: 04/22/21 00:02 04/22/21 00:02 Labs: Lab Results 04/22/21 04/22/21 04/22/21 Range/Units 00:02 00:02 00:02 WBC 9.1 (4.8-10.8) X10*3/uL RBC 3.91 L (4.20-5.50) X10*6/uL Hgb 10.5 L (12.0-16.0) g/dl Hct 31.3 L (37.0-47.0) % MCV 80.1 (80.0-98.0) fL MCH 26.9 L (27.0-33.0) pg MCHC 33.5 (31.0-35.0) g/dl RDW 15.9 (11.0-16.0) % Plt Count 245 D (160-400) X10*3/uL MPV 11.2 (9.4-12.3) fL Immature Gran % (Auto) 0.3 (0.0-0.4) % Neut % (Auto) 82.7 H (45-73) % Lymph % (Auto) 11.7 L (20-40) % [place] % (Auto) 4.1 (2-11) % Eos % (Auto) 1.0 (0-4) % Baso % (Auto) 0.2 (0-2) % Lymph # (Auto) 1.1 L (1.2-4.9) X10*3/uL [place] # (Auto) 0.4 (0.1-1.2) X10*3/uL Eos # (Auto) 0.1 (0.0-0.4) X10*3/uL Baso # (Auto) 0.0 (0.0-0.2) X10*3/uL Abs Immat Gran (auto) 0.03 (0.00-0.03) X10*3/uL Absolute Neuts (auto) 7.5 (2.0-8.3) x10*3/uL Absolute Nucleated RBC 0.000 (0.0-0.012) X10*3/uL Nucleated RBC % (auto) 0.0 (0.0-0.2) /100WBC Sodium 138 (135-145) mmol/L Potassium 4.6 (3.3-5.1) mmol/L Chloride 110 H (96-108) mmol/L Carbon Dioxide 20 L (22-29) mmol/L Anion Gap 13 (12-20) BUN 24 H D (9-16) mg/dL Creatinine 1.79 H (0.5-1.4) mg/dL Estim Creat Clear Calc 48.3 Estimated GFR 33 Random Glucose 176 H (60-115) mg/dL Calcium 8.5 (8.4-10.2) mg/dL Total Bilirubin 0.3 (0.0-1.0) mg/dL Direct Bilirubin < 0.2 (0.0-0.5) mg/dL AST 19 (5-31) U/L ALT 11 (0-31) U/L Alkaline Phosphatase 85 D (39-117) U/L Total Protein 6.3 L (6.5-8.0) g/dL Albumin 2.7 L D (3.5-5.0) g/dL Lipase 23 (8-78) U/L Beta HCG, Quant < 2 mIU/mL Discharge Plan Discharge Clinical Impression: Abdominal pain Patient Disposition: Home, Self-Care Instructions: Abdominal Pain (ED) Prescriptions: No Action insulin aspart U-100 [Novolog Flexpen U-100 Insulin] 100 unit/mL (3 mL) insulin pen See Protocol unit subcut DIRECTED PRN (Reason: Hyperglycemia) 0RF Protocol: Insulin Correction Scale Less than or equal to 110 ---- Give (units): 0 111 to 150 Give (units): 0 151 to 200 Give (units): 2 201 to 250 Give (units): 4 251 to 300 Give (units): 6 301 to 350 Give (units): 8 Greater than 350 Give (units): 10 Call MD if Blood Glucose > : 350 Rx Instructions: max daily dose of 50 units Jardiance 10 mg tablet 1 tab PO QAM 0RF sertraline 25 mg tablet 1 tab PO DAILY 0RF ferrous sulfate 325 mg (65 mg iron) tablet 325 mg PO DAILY Qty: 30 0RF Levemir FlexTouch U-100 Insuln 100 unit/mL (3 mL) insulin pen 20 unit subcut DAILY Qty: 0 0RF isosorbide mononitrate 30 mg Tablet Extended Release 24 Hr 30 mg PO DAILY Qty: 30 0RF Protocol: Hold for SBP< HOLD for SBP < : 90 spironolactone 25 mg Tablet 50 mg PO DAILY Qty: 30 0RF Protocol: Hold for SBP< HOLD for SBP < : 90 amlodipine 10 mg Tablet 10 mg PO DAILY Qty: 30 0RF Protocol: Hold for SBP< HOLD for SBP < : 90 furosemide 20 mg Tablet 20 mg PO DAILY Qty: 30 0RF Protocol: Hold for SBP< HOLD for SBP < : 90 valsartan 40 mg Tablet 40 mg PO BID Qty: 60 0RF Protocol: Hold for SBP< HOLD for SBP < : 90 metoprolol tartrate 25 mg Tablet 25 mg PO BID Qty: 60 0RF Protocol: Hold for SBP/HR < HOLD for SBP < : 90 HOLD for HR < : 60 levofloxacin 750 mg tablet 750 mg PO DAILY Qty: 14 0RF doxycycline hyclate 100 mg capsule 100 mg PO BID 7 Days Qty: 14 0RF Robitussin Cough-Chest Elio DM 5-100 mg/5 mL liquid 10 ml PO Q4-8H PRN (Reason: cough) Qty: 118 0RF
[2021-04-22] VITALS: BP 152/64; PULSE 102; RESP 15; TEMP 36.9; O2SAT 99
[2021-04-22 00:08] LABS: MANUAL DIFF FLAG NO
[2021-04-22 00:09] LABS: Basophils Percent Auto 0.2 % (0-2); Eosinophils Absolute Auto 0.1 X10*3/uL (0.0-0.4); Hematocrit 31.3 % (37.0-47.0); Hemoglobin 10.5 g/dl (12.0-16.0); Imm Gran Abs Auto 0.03 X10*3/uL (0.00-0.03); Imm Gran Pct Auto 0.3 % (0.0-0.4); Lymphocytes Absolute Auto 1.1 X10*3/uL (1.2-4.9); Lymphocytes Percent Auto 11.7 % (20-40); Mean Corpuscular HGB Conc 33.5 g/dl (31.0-35.0); Mean Corpuscular Hemoglobin 26.9 pg (27.0-33.0); Mean Corpuscular Volume 80.1 fL (80.0-98.0); Mean Platelet Volume 11.2 fL (9.4-12.3); Monocytes Absolute Auto 0.4 X10*3/uL (0.1-1.2); Monocytes Percent Auto 4.1 % (2-11); Neutrophils Absolute Auto 7.5 x10*3/uL (2.0-8.3); Neutrophils Percent Auto 82.7 % (45-73); Platelet Count 245 X10*3/uL (160-400); Red Blood Count 3.91 X10*6/uL (4.20-5.50); Red Cell Distribution Width 15.9 % (11.0-16.0); White Blood Count 9.1 X10*3/uL (4.8-10.8)
[2021-04-22 00:19] VITALS: RESP 15
[2021-04-22] MEDS: HYDROmorphone HCl 1 MG/ML SYRINGE 0.5 MG IVPUSH (00:19)
[2021-04-22] MEDS: ondansetron HCL 4 MG/2 ML VIAL IVPUSH (00:19)
[2021-04-22] MEDS: 0.9 % Sodium Chloride 500 ML 999 ML IV (00:19)
[2021-04-22 00:35] LABS: HCG Quantitative < 2 mIU/mL
[2021-04-22 00:44] LABS: Alanine Aminotransferase 11 U/L (0-31); Albumin Level 2.7 g/dL (3.5-5.0); Alkaline Phosphatase 85 U/L (39-117); Anion Gap 13 (12-20); Aspartate Amino Transferase 19 U/L (5-31); Bilirubin Direct < 0.2 mg/dL (0.0-0.5); Bilirubin Total 0.3 mg/dL (0.0-1.0); Blood Urea Nitrogen 24 mg/dL (9-16); Calcium 8.5 mg/dL (8.4-10.2); Carbon Dioxide 20 mmol/L (22-29); Chloride 110 mmol/L (96-108); Creatinine Clr Calc Pharmacy 48.3; Estimated Glomerular Filt Rate 33; Glucose Random 176 mg/dL (60-115); Lipase 23 U/L (8-78); Potassium 4.6 mmol/L (3.3-5.1); Sodium 138 mmol/L (135-145); Total Protein 6.3 g/dL (6.5-8.0)
== END 2021-04-22 02:30 | disposition home or self-care (01) ==
PROVIDERS: Emergency Provider Emergency Medicine Emergency Medical Services; PCP Internal Medicine
DX: R10.31 Right lower quadrant pain (principal); E11.9 Type 2 diabetes mellitus without complications; I11.0 Hypertensive heart disease with heart failure; I50.9 Heart failure, unspecified
CPT/HCPCS: 36415; 74176; 80048; 80076; 83690; 84702; 85025; 96374; 96375; 99284; J1170; J2405

== ENCOUNTER 2022-01-05 14:22 | Emergency (ER) | payer OTHER, SELFPAY ==
[2022-01-05] VITALS (8 sets, daily range): BP systolic 160–208; BP diastolic 86–127; PULSE 96–114; RESP 18–25; TEMP 36.4–36.6; O2SAT 95–99; BMI 31.9
--- NOTE | ~2022-01-05 | XR_ITS ---
EXAMINATION: XR chest 2V CLINICAL INFORMATION: Reason for Exam L rib pain COMPARISON: Chest radiograph 02/02/2021 TECHNIQUE: 2 views of the chest FINDINGS: Mild indistinctness of the central pulmonary vasculature which may reflect pulmonary venous congestion. No pneumothorax. Trace bilateral pleural effusions are suspected on the lateral view although evaluation is somewhat limited by motion degradation. Borderline enlarged cardiac silhouette. No displaced rib fracture. XR/XR chest 2V IMPRESSION: 1. Mild indistinctness of the central pulmonary vasculature which may reflect pulmonary venous congestion. 2. Borderline enlarged cardiac silhouette. 3. Trace bilateral pleural effusions are suspected on the lateral view although evaluation is somewhat limited by motion degradation. 4. No displaced rib fracture radiographs have sensitivity for the evaluation of rib fractures and if clinical concern, CT chest is advised.
--- NOTE | ~2022-01-05 | XR_ITS ---
EXAMINATION: XR KNEE, RIGHT CLINICAL INFORMATION: Knee pain COMPARISON: None TECHNIQUE: Four views of the right knee. FINDINGS: No evidence for an acute fracture or dislocation. There is tubular calcific density anterior which may well represent a calcified blood vessel. There is a trace joint effusion. There is no bony erosion. No fracture or dislocation. XR/XR knee RT 4V IMPRESSION: No acute finding. Possible trace effusion. Some minimal early patellofemoral spurring. Possible vascular calcification inferior to the patella
--- NOTE | ~2022-01-05 | US_ITS ---
EXAMINATION: US VENOUS ULTRASOUND WITH DOPPLER LOWER EXTREMITY, RIGHT CLINICAL INFORMATION: Right leg swelling. COMPARISON: None TECHNIQUE: Ultrasound of the deep veins is performed from the hip to the calf with compression sonography and color and pulse Doppler assessment. Spectral analysis with color-flow imaging is performed. FINDINGS: There is normal venous compression and respiratory variation and augmented flow. The visualized common femoral vein, superficial femoral vein, profunda femoral vein, popliteal vein, and the trifurcation region shows no evidence of deep venous thrombosis. There is no significant popliteal fossa cyst. If the patient's symptoms persist, followup ultrasound in 5 days 7 days might be of value to exclude proximal propagation from a non-visualized calf vein. US/US venous duplex LE RT IMPRESSION: No DVT demonstrated in the right lower extremity.
--- NOTE | ~2022-01-05 | CT_ITS ---
EXAMINATION: CT CHEST WITHOUT CONTRAST CLINICAL INFORMATION: Shortness of breath, hypertension. COMPARISON: CTA of the chest 01/14/2021. TECHNIQUE: Multidetector volumetric CT imaging of the chest was done. Axial MIP volume rendering provided. Sagittal and coronal reformatted images were obtained. This CT examination was performed using dose optimization techniques as appropriate, variously including the following: *Automated exposure control *Adjustment of mA and/or kV according to patient size (this includes techniques or standardized protocols for targeted exams where dose is matched to indication/reason for exam; i.e. extremities or head) *Use of iterative reconstruction technique DLP: 320 mGy-cm FINDINGS: LUNGS: There are moderate size bilateral pleural effusions with associated compressive atelectasis versus consolidative changes in the lower lobes. There is smooth septal thickening bilaterally. The central airways are patent. A few sub-4 mm pulmonary nodules are noted bilaterally for example (series 5): 1. A 3 mm right upper lobe nodule, image 112. 2. A 4 mm right upper lobe nodule, image 139. 3. A 2 mm right middle lobe nodule, image 237. 4. A 4 mm right lower lobe nodule, image 317. MEDIASTINUM: Cardiomegaly with a small pericardial effusion. Enlarged mediastinal lymph nodes, for instance measuring 1.4 cm short axis on image 21, series 3. Evaluation of the hilar structures is limited in the absence of IV contrast. Normal appearance of the thyroid gland. CORONARY ARTERY CALCIFICATION: Present, mild. PLEURA: As above, moderate size bilateral pleural effusions. No pneumothorax. AXILLA: Fairly symmetric prominent bilateral axillary lymph nodes, likely reactive. UPPER ABDOMEN: Cholecystectomy. Mild anasarca. OSSEOUS STRUCTURES: No acute or aggressive appearing osseous abnormalities. CT/CT chest wo IV con IMPRESSION: 1. Cardiomegaly with a small pericardial effusion. 2. Moderate size bilateral pleural effusions with associated compressive atelectasis versus consolidative changes in the lower lobes. 3. Smooth septal thickening suggesting interstitial pulmonary edema. 4. Multiple sub-4 mm pulmonary nodules are indeterminate. Assuming patient has no history of malignancy, recommend follow-up per Fleischner Society recommendations. According to the UPDATED 2017 Fleischner Society recommendations, the advised followup imaging for solid nodules < 6 mm is: LOW RISK PATIENT: No routine follow up. HIGH RISK PATIENT: Optional CT at 12 months.
--- NOTE | ~2022-01-05 | NM_ITS ---
EXAMINATION: NM LUNG IMAGE PERFUSION CLINICAL INFORMATION: Chest pain increased d-dimer COMPARISON: Chest film dated 01/05/2022 TECHNIQUE: Perfusion imaging only. 2.7 mCi technetium MAA. Imaging in various obliquities over the lung reynolds. FINDINGS: In the left lung there is linear defect which likely represents a stripe sign of the fissure. There is a small subsegmental area of nonperfusion at the left base and a another possible area in the midlung posterior. There is generalized decreased perfusion in the left lower lung zone Review of the chest film does demonstrate a probable density posterior in the posterior costophrenic angle. Markedly based on the lateral image NM/NM pul perfusion IMPRESSION: Some findings as described on the left. There is no ventilation portion submitted. Therefore exam is nondiagnostic for PE. Consider CTA of the chest for further evaluation. Consider extremity Dopplers
--- NOTE | 2022-01-05 14:34 | ED.GENADULT ---
HPI - General Adult General Chief complaint: General Medical <JOVON Knox - Last Filed: 01/05/22 14:42> Stated complaint: R RIB PAIN/L LEG PAIN X'S 2 WEEKS PER EMS <JOVON Knox - Last Filed: 01/05/22 14:42> Time Seen by Provider: 01/05/22 15:16 <JOVON Knox - Last Filed: 01/05/22 14:42> Related Data Home medications: Home Medications Medication Instructions Recorded Confirmed empagliflozin 10 mg tablet 1 tab PO QAM 12/07/20 01/14/21 (Jardiance) insulin aspart U-100 100 unit/mL See Protocol subcut DIRECTED 12/07/20 01/14/21 (3 mL) subcutaneous pen (Novolog PRN Hyperglycemia Flexpen U-100 Insulin aspart) sertraline 25 mg tablet 1 tab PO DAILY 12/07/20 01/14/21 Previous Rx's Medication Instructions Recorded ferrous sulfate 325 mg (65 mg 325 mg PO DAILY #30 tabs 12/11/20 iron) tablet insulin detemir U-100 100 unit/mL 20 unit (0.2 mL) subcut DAILY #0 mL 12/11/20 (3 mL) subcutaneous pen (Levemir FlexTouch U-100 Insulin) amlodipine 10 mg tablet 10 mg PO DAILY #30 tabs 01/19/21 furosemide 20 mg tablet 20 mg PO DAILY #30 tabs 01/19/21 isosorbide mononitrate 30 mg 30 mg PO DAILY #30 tabs 01/19/21 tablet,extended release 24 hr levofloxacin 750 mg tablet 750 mg PO DAILY #14 tabs 01/19/21 metoprolol tartrate 25 mg tablet 25 mg PO BID #60 tabs 01/19/21 spironolactone 25 mg tablet 50 mg PO DAILY #30 tabs 01/19/21 valsartan 40 mg tablet 40 mg PO BID #60 tabs 01/19/21 dextromethorphan-guaifenesin 5 10 ml PO Q4-8H PRN cough #118 mL 02/02/21 mg-100 mg/5 mL oral liquid (Robitussin Cough-Chest Congestion DM) doxycycline hyclate 100 mg capsule 100 mg PO BID cough 7 days #14 caps 02/02/21 <JOVON Knox - Last Filed: 01/05/22 14:42> Allergies/adverse reactions: Allergies Allergy/AdvReac Type Severity Reaction Status Date / Time morphine [MORPHINE] Allergy Intermediate Itching Verified 01/14/21 07:31 azithromycin [From Zithromax] Allergy Hives Verified 04/21/21 21:21 vancomycin Allergy Hives Verified 04/21/21 21:21 <JOVON Knox - Last Filed: 01/05/22 14:42> [facility] Past Medical History Medical History: Medical History Abnormal finding on echocardiogram Acute dyspnea Acute worsening of stage 3 chronic kidney disease MYNOR (acute kidney injury) Asthma Back pain Blind right eye Bone infection Cellulitis Cellulitis and abscess of foot Chest pain CHF (congestive heart failure) Depression with anxiety Diabetes Diabetic retinopathy DM foot ulcer Elevated troponin Essential hypertension Fever Generalized edema HTN (hypertension) Migraine Osteomyelitis PAD (peripheral artery disease) Pleural effusion test positive test positive Sepsis Severe anemia Tachycardia Type 2 diabetes mellitus with hyperglycemia, with long-term current use of insulin <JOVON Knox - Last Filed: 01/05/22 14:42> Surgical History: Surgical History History of transmetatarsal amputation of foot S/P transmetatarsal amputation of foot <JOVON Knox - Last Filed: 01/05/22 14:42> Family History Family History: Family History Mother Coronary artery disease Myocardial infarction Stroke Diabetes mellitus Father Myocardial infarction <JOVON Knox - Last Filed: 01/05/22 14:42> Social History Social History: Social History Household Members: Significant Other Household Members Other:: Sister, [id number], nephew Housing: Apartment Do you presently have visiting nurse or other home services: Yes ([employer] services) Alcohol intake: never Patient Tobacco Use Status: Never used Tobacco e-Cigarette/Vaping Use: Never Used Second Hand Smoke Exposure: No Advance Directives: Yes Advance Directives on File: Yes Advance Directives Date on File: 03/08/20 service: No Current occupational status: unemployed and disabled Gender identity: Female <JOVON Knox - Last Filed: 01/05/22 14:42> Physical Exam ED Vital Signs: Vital Signs - 24 hr 01/05/22 14:32 01/05/22 16:00 01/05/22 18:31 Temperature 97.5 F Pulse Rate 110 H 110 H 114 H Respiratory Rate 18 18 21 H Blood Pressure 191/100 H 197/119 H 208/127 H Pulse Oximetry 99 97 97 Oxygen Delivery Method Room Air Room Air Room Air Oxygen Flow Rate 01/05/22 18:58 01/05/22 19:20 01/05/22 20:15 Temperature Pulse Rate 103 H 101 H 97 Respiratory Rate 25 H 24 H 20 Blood Pressure 182/109 H 180/105 H 171/103 H Pulse Oximetry 95 98 98 Oxygen Delivery Method Nasal Cannula Room Air Nasal Cannula Oxygen Flow Rate 2 2 01/05/22 21:16 Temperature 97.8 F Pulse Rate 96 Respiratory Rate 18 Blood Pressure 160/86 H Pulse Oximetry 99 Oxygen Delivery Method Room Air Oxygen Flow Rate BMI result Body Mass Index 31.9 <JOVON Knox - Last Filed: 01/05/22 14:42> Vital Signs - 24 hr 01/05/22 14:32 01/05/22 16:00 01/05/22 18:31 Temperature 97.5 F Pulse Rate 110 H 110 H 114 H Respiratory Rate 18 18 21 H Blood Pressure 191/100 H 197/119 H 208/127 H Pulse Oximetry 99 97 97 Oxygen Delivery Method Room Air Room Air Room Air Oxygen Flow Rate 01/05/22 18:58 01/05/22 19:20 01/05/22 20:15 Temperature Pulse Rate 103 H 101 H 97 Respiratory Rate 25 H 24 H 20 Blood Pressure 182/109 H 180/105 H 171/103 H Pulse Oximetry 95 98 98 Oxygen Delivery Method Nasal Cannula Room Air Nasal Cannula Oxygen Flow Rate 2 2 01/05/22 21:16 Temperature 97.8 F Pulse Rate 96 Respiratory Rate 18 Blood Pressure 160/86 H Pulse Oximetry 99 Oxygen Delivery Method Room Air Oxygen Flow Rate BMI result Body Mass Index 31.9 <Ivette Kincaid MD - Last Filed: 01/06/22 01:14> Course Course Course Narrative: 31yo F s/p 12/09 complicated by hemorrage requiring transfusion c/o L rib pain worse with movement and deep breathing and R knee pain s/p playing with kids. EKG, Labs including dimer, CXR, Knee XR, UA ordered in triage <JOVON Knox - Last Filed: 01/05/22 14:42> Reevaluation(s) Reevaluation #1: I discussed the case with Dr. Noel who recommends transfer as this is a complicated case with multifactorial variables that may be contributing to the overall clinical picture, however it is obvious that this patient clinically and objectively has evidence acute CHF exacerbation unclear whether this is cardiac or noncardiac in nature as there is noted acute on chronic renal failure with elevated D-dimer no changes on EKG. Patient will receive initially nitro paste to help with both the blood pressure as well as the fluid overload, IV fluids were discontinued, patient will be re-evaluated and will receive labetalol as indicated as well as obtaining a magnesium level. At the end of the day, patient will be transferred out to [facility] as per recommendations by Dr. Noel. <Ivette Kincaid MD - Last Filed: 01/06/22 01:14> Time: 18:20 <Ivette Kincaid MD - Last Filed: 01/06/22 01:14> Reevaluation #2: For the discussed with Dr. Noel, patient's blood pressure is not improving and we will start her on labetalol protocol as well as keeping the 1/2 inch nitropaste for pulmonary edema, checking BP every 10 minutes and giving Lasix. 0: Recheck of BP after 40mg of Labetalol demonstrates patient is still at 180/105, Dr Noel is in ER, patient will receive 80mg Labetalol at this time and repeat bloodwork in addition to calling [facility]. 2004: [facility] declines transfer (Dr Amaya and Dr Quiros) and states that patient has already received Mg treatment and they would not re-Mg her and recommends BP control, [facility] is otherwise at capacity and so reached out to [facility] for transfer. 2023: [facility] declines. 2099: I discussed this case with the sonography technologist who feels like this is a hypertensive crisis. 2115: Patient returns from MI V/Q Scan and BP noted to be 160/86. 2139: Attempted to admit patient to medicine with improved BP, diuresed, but not comfortable with admission due to OB note recommending transfer to [facility] (tertiary center). 2147: Discussed with Dr Noel, who does not feel that this is an OB related condition as per my consultation with [facility] and does not feel comfortable with being consulted should the patient stay. 2157: V/Q non-diagnostic for PE because ventilation portion of the study was not ordered. This has been re-ordered although low clinical suspicion for PE despite elevated d-dimer. 2211: Attempted to transfer to [facility], but patient refusing. 2213: I am attempting to discuss with the sonography technologist. Unfortunately, the sonography technologist will not be able to accept the patient in to an ICU bed at this time. 2257: As OB sap portal consultant is recommending M sap portal consultant, hospitalist is unable to admit at this time. Patient will remain in the ER. I reviewed the CT scan which appeared to demonstrate pericardial effusion and bilateral pleural effusions prompting me to obtain a bedside ultrasound which clearly demonstrated a small pericardial effusion (patient remains hemodynamically stable) as well as bilateral pleural effusions with findings consistent with consolidations although patient is afebrile and no leukocytosis which more favors the follow-up official read on CT scan of compression atelectasis patient strongly encouraged to allow us to transfer her to [facility]. 0054: Patient has agreed for transfer to [facility] and I reached out to the facility. She has received an additional 40 mg of Lasix. 0110: [facility] has accepted transfer to their ER under Dr Early. <Ivette Kincaid MD - Last Filed: 01/06/22 01:14> Time: 18:56 <Ivette Kincaid MD - Last Filed: 01/06/22 01:14> Medications Administered Discontinued Medications Generic Name Dose Route Start Last Admin Trade Name Freq PRN Reason Stop Dose Admin Diphenhydramine HCl 25 mg 01/05/22 17:44 01/05/22 18:24 Diphenhydramine Hcl 50 Mg/Ml Vial IVPUSH 01/05/22 17:45 25 mg ONCE ONE Administration Furosemide 40 mg 01/05/22 18:58 01/05/22 19:02 Furosemide 40 Mg/4 Ml Vial IVPUSH 01/05/22 18:59 40 mg ONCE ONE Administration Protocol Furosemide 40 mg 01/06/22 00:19 01/06/22 00:25 Furosemide 40 Mg/4 Ml Vial IVPUSH 01/06/22 00:20 40 mg ONCE ONE Administration Protocol Hydromorphone HCl 1 mg 01/05/22 15:41 01/05/22 16:32 Hydromorphone Hcl 1 Mg/Ml Syringe IVPUSH 01/05/22 15:42 1 mg ONCE STA Administration Protocol Hydromorphone HCl 1 mg 01/05/22 17:44 01/06/22 00:20 Hydromorphone Hcl 1 Mg/Ml Syringe IVPUSH 01/05/22 17:45 1 mg ONCE STA Administration Protocol Labetalol HCl 20 mg 01/05/22 18:46 01/05/22 18:49 Labetalol Hcl 100 Mg/20 Ml Vial IVPUSH 01/05/22 18:47 20 mg ONCE ONE Administration Labetalol HCl 40 mg 01/05/22 19:13 01/05/22 19:16 Labetalol Hcl 100 Mg/20 Ml Vial IVPUSH 01/05/22 19:14 40 mg ONCE ONE Administration Labetalol HCl 80 mg 01/05/22 19:33 01/05/22 19:34 Labetalol Hcl 100 Mg/20 Ml Vial IVPUSH 01/05/22 19:34 80 mg ONCE ONE Administration Metoclopramide HCl 10 mg 01/05/22 17:44 01/05/22 18:24 Metoclopramide Hcl 10 Mg/2 Ml Vial IVPUSH 01/05/22 17:45 10 mg ONCE STA Administration Nitroglycerin 0.5 inch 01/05/22 17:58 01/05/22 18:25 Nitroglycerin 2 % Oint 1 Gm Packet TRANSDERMA 01/05/22 17:59 0.5 inch ONCE ONE Administration Nitroglycerin 1 inch 01/05/22 19:56 01/05/22 20:11 Nitroglycerin 2 % Oint 1 Gm Packet TRANSDERMA 01/05/22 19:57 1 inch ONCE ONE Administration <JOVON Knox - Last Filed: 01/05/22 14:42> Medications Administered Discontinued Medications Generic Name Dose Route Start Last Admin Trade Name Freq PRN Reason Stop Dose Admin Diphenhydramine HCl 25 mg 01/05/22 17:44 01/05/22 18:24 Diphenhydramine Hcl 50 Mg/Ml Vial IVPUSH 01/05/22 17:45 25 mg ONCE ONE Administration Furosemide 40 mg 01/05/22 18:58 01/05/22 19:02 Furosemide 40 Mg/4 Ml Vial IVPUSH 01/05/22 18:59 40 mg ONCE ONE Administration Protocol Furosemide 40 mg 01/06/22 00:19 01/06/22 00:25 Furosemide 40 Mg/4 Ml Vial IVPUSH 01/06/22 00:20 40 mg ONCE ONE Administration Protocol Hydromorphone HCl 1 mg 01/05/22 15:41 01/05/22 16:32 Hydromorphone Hcl 1 Mg/Ml Syringe IVPUSH 01/05/22 15:42 1 mg ONCE STA Administration Protocol Hydromorphone HCl 1 mg 01/05/22 17:44 01/06/22 00:20 Hydromorphone Hcl 1 Mg/Ml Syringe IVPUSH 01/05/22 17:45 1 mg ONCE STA Administration Protocol Labetalol HCl 20 mg 01/05/22 18:46 01/05/22 18:49 Labetalol Hcl 100 Mg/20 Ml Vial IVPUSH 01/05/22 18:47 20 mg ONCE ONE Administration Labetalol HCl 40 mg 01/05/22 19:13 01/05/22 19:16 Labetalol Hcl 100 Mg/20 Ml Vial IVPUSH 01/05/22 19:14 40 mg ONCE ONE Administration Labetalol HCl 80 mg 01/05/22 19:33 01/05/22 19:34 Labetalol Hcl 100 Mg/20 Ml Vial IVPUSH 01/05/22 19:34 80 mg ONCE ONE Administration Metoclopramide HCl 10 mg 01/05/22 17:44 01/05/22 18:24 Metoclopramide Hcl 10 Mg/2 Ml Vial IVPUSH 01/05/22 17:45 10 mg ONCE STA Administration Nitroglycerin 0.5 inch 01/05/22 17:58 01/05/22 18:25 Nitroglycerin 2 % Oint 1 Gm Packet TRANSDERMA 01/05/22 17:59 0.5 inch ONCE ONE Administration Nitroglycerin 1 inch 01/05/22 19:56 01/05/22 20:11 Nitroglycerin 2 % Oint 1 Gm Packet TRANSDERMA 01/05/22 19:57 1 inch ONCE ONE Administration <Ivette Brazille, MD - Last Filed: 01/06/22 01:14> Medical Decision Making Lab Data Result diagrams: : 01/05/22 20:32 01/05/22 20:32 <JOVON Knox - Last Filed: 01/05/22 14:42> Labs: Lab Results 01/05/22 01/05/22 01/05/22 Range/Units 14:48 14:48 14:48 WBC 6.0 (4.8-10.8) X10*3/uL RBC 2.75 L D (4.20-5.50) X10*6/uL Hgb 7.9 L D (12.0-16.0) g/dl Hct 24.7 L D (37.0-47.0) % MCV 89.8 (80.0-98.0) fL MCH 28.7 (27.0-33.0) pg MCHC 32.0 (31.0-35.0) g/dl RDW 14.2 (11.0-16.0) % Plt Count 240 (160-400) X10*3/uL MPV 11.3 (9.4-12.3) fL Immature Gran % (Auto) 0.7 H (0.0-0.4) % Neut % (Auto) 79.4 H (45-73) % Lymph % (Auto) 11.6 L (20-40) % [place] % (Auto) 5.7 (2-11) % Eos % (Auto) 2.3 (0-4) % Baso % (Auto) 0.3 (0-2) % Lymph # (Auto) 0.7 L (1.2-4.9) X10*3/uL [place] # (Auto) 0.3 (0.1-1.2) X10*3/uL Eos # (Auto) 0.1 (0.0-0.4) X10*3/uL Baso # (Auto) 0.0 (0.0-0.2) X10*3/uL Abs Immat Gran (auto) 0.04 H (0.00-0.03) X10*3/uL Absolute Neuts (auto) 4.7 (2.0-8.3) x10*3/uL Absolute Nucleated RBC 0.000 (0.0-0.012) X10*3/uL Nucleated RBC % (auto) 0.0 (0.0-0.2) /100WBC PT 12.4 (10.0-13.1) SEC INR 1.1 (0.9-1.1) D-Dimer High Sensitivty NG/ML Sodium 140 (135-145) mmol/L Potassium 4.4 (3.3-5.1) mmol/L Chloride 111 H (96-108) mmol/L Carbon Dioxide 18 L (22-29) mmol/L Anion Gap 15 (12-20) BUN 46 H D (9-16) mg/dL Creatinine 3.26 H (0.5-1.4) mg/dL Estim Creat Clear Calc 27.6 Estimated GFR 16 Random Glucose 206 H (60-115) mg/dL Calcium 7.4 L D (8.4-10.2) mg/dL Magnesium 1.9 (1.6-2.6) mg/dL Total Bilirubin 0.4 (0.0-1.0) mg/dL Direct Bilirubin 0.2 (0.0-0.5) mg/dL AST 11 D (5-31) U/L ALT 14 (0-31) U/L Alkaline Phosphatase 101 (39-117) U/L Troponin I High Sens (<3.5-17.0) ng/L B-Natriuretic Peptide (<100) pg/mL Total Protein 5.5 L (6.5-8.0) g/dL Albumin 2.6 L (3.5-5.0) g/dL Lipase 22 (8-78) U/L Urine Color Urine Appearance Urine pH (5.0-9.0) Ur Specific Elon (1.005-1.025) Urine Protein (Neg-Trace) mg/dL Urine Glucose (UA) (Negative) mg/dL Urine Ketones (Negative) mg/dL Urine Blood (Negative) Urine Nitrite (Negative) Ur Leukocyte Esterase (Negative) Urine RBC (0-2) /HPF Urine WBC (0-5) /HPF Ur Squamous Epith Cells (0-2) /HPF Urine Bacteria (None Seen) Hyaline Casts (0-2) /LPF Urine Opiates Screen (Not Detect) Urine Fentanyl Screen (Not Detect) Ur Barbiturates Screen (Not Detect) Ur Phencyclidine Scrn (Not Detect) Ur Amphetamines Screen (Not Detect) U Benzodiazepines Scrn (Not Detect) Urine Cocaine Screen (Not Detect) U Marijuana (THC) Screen (Not Detect) Blood Type Antibody Screen 01/05/22 01/05/22 01/05/22 Range/Units 14:48 14:48 14:48 WBC (4.8-10.8) X10*3/uL RBC (4.20-5.50) X10*6/uL Hgb (12.0-16.0) g/dl Hct (37.0-47.0) % MCV (80.0-98.0) fL MCH (27.0-33.0) pg MCHC (31.0-35.0) g/dl RDW (11.0-16.0) % Plt Count (160-400) X10*3/uL MPV (9.4-12.3) fL Immature Gran % (Auto) (0.0-0.4) % Neut % (Auto) (45-73) % Lymph % (Auto) (20-40) % [place] % (Auto) (2-11) % Eos % (Auto) (0-4) % Baso % (Auto) (0-2) % Lymph # (Auto) (1.2-4.9) X10*3/uL [place] # (Auto) (0.1-1.2) X10*3/uL Eos # (Auto) (0.0-0.4) X10*3/uL Baso # (Auto) (0.0-0.2) X10*3/uL Abs Immat Gran (auto) (0.00-0.03) X10*3/uL Absolute Neuts (auto) (2.0-8.3) x10*3/uL Absolute Nucleated RBC (0.0-0.012) X10*3/uL Nucleated RBC % (auto) (0.0-0.2) /100WBC PT (10.0-13.1) SEC INR (0.9-1.1) D-Dimer High Sensitivty 1911 NG/ML Sodium (135-145) mmol/L Potassium (3.3-5.1) mmol/L Chloride (96-108) mmol/L Carbon Dioxide (22-29) mmol/L Anion Gap (12-20) BUN (9-16) mg/dL Creatinine (0.5-1.4) mg/dL Estim Creat Clear Calc Estimated GFR Random Glucose (60-115) mg/dL Calcium (8.4-10.2) mg/dL Magnesium (1.6-2.6) mg/dL Total Bilirubin (0.0-1.0) mg/dL Direct Bilirubin (0.0-0.5) mg/dL AST (5-31) U/L ALT (0-31) U/L Alkaline Phosphatase (39-117) U/L Troponin I High Sens 22.0 H D (<3.5-17.0) ng/L B-Natriuretic Peptide 1621 H (<100) pg/mL Total Protein (6.5-8.0) g/dL Albumin (3.5-5.0) g/dL Lipase (8-78) U/L Urine Color Urine Appearance Urine pH (5.0-9.0) Ur Specific Elon (1.005-1.025) Urine Protein (Neg-Trace) mg/dL Urine Glucose (UA) (Negative) mg/dL Urine Ketones (Negative) mg/dL Urine Blood (Negative) Urine Nitrite (Negative) Ur Leukocyte Esterase (Negative) Urine RBC (0-2) /HPF Urine WBC (0-5) /HPF Ur Squamous Epith Cells (0-2) /HPF Urine Bacteria (None Seen) Hyaline Casts (0-2) /LPF Urine Opiates Screen (Not Detect) Urine Fentanyl Screen (Not Detect) Ur Barbiturates Screen (Not Detect) Ur Phencyclidine Scrn (Not Detect) Ur Amphetamines Screen (Not Detect) U Benzodiazepines Scrn (Not Detect) Urine Cocaine Screen (Not Detect) U Marijuana (THC) Screen (Not Detect) Blood Type Antibody Screen 01/05/22 01/05/22 01/05/22 Range/Units 20:32 20:32 20:32 WBC 6.1 (4.8-10.8) X10*3/uL RBC 2.71 L (4.20-5.50) X10*6/uL Hgb 8.0 L (12.0-16.0) g/dl Hct 24.4 L (37.0-47.0) % MCV 90.0 (80.0-98.0) fL MCH 29.5 (27.0-33.0) pg MCHC 32.8 (31.0-35.0) g/dl RDW 14.1 (11.0-16.0) % Plt Count 226 (160-400) X10*3/uL MPV 11.6 (9.4-12.3) fL Immature Gran % (Auto) 0.7 H (0.0-0.4) % Neut % (Auto) 80.6 H (45-73) % Lymph % (Auto) 10.7 L (20-40) % [place] % (Auto) 5.9 (2-11) % Eos % (Auto) 1.8 (0-4) % Baso % (Auto) 0.3 (0-2) % Lymph # (Auto) 0.7 L (1.2-4.9) X10*3/uL [place] # (Auto) 0.4 (0.1-1.2) X10*3/uL Eos # (Auto) 0.1 (0.0-0.4) X10*3/uL Baso # (Auto) 0.0 (0.0-0.2) X10*3/uL Abs Immat Gran (auto) 0.04 H (0.00-0.03) X10*3/uL Absolute Neuts (auto) 4.9 (2.0-8.3) x10*3/uL Absolute Nucleated RBC 0.000 (0.0-0.012) X10*3/uL Nucleated RBC % (auto) 0.0 (0.0-0.2) /100WBC PT (10.0-13.1) SEC INR (0.9-1.1) D-Dimer High Sensitivty NG/ML Sodium 140 (135-145) mmol/L Potassium 4.3 (3.3-5.1) mmol/L Chloride 111 H (96-108) mmol/L Carbon Dioxide 18 L (22-29) mmol/L Anion Gap 15 (12-20) BUN 45 H (9-16) mg/dL Creatinine 3.29 H (0.5-1.4) mg/dL Estim Creat Clear Calc 27.4 Estimated GFR 16 Random Glucose 201 H (60-115) mg/dL Calcium 7.5 L (8.4-10.2) mg/dL Magnesium (1.6-2.6) mg/dL Total Bilirubin 0.4 (0.0-1.0) mg/dL Direct Bilirubin (0.0-0.5) mg/dL AST 11 (5-31) U/L ALT 13 (0-31) U/L Alkaline Phosphatase 97 (39-117) U/L Troponin I High Sens 21.7 H (<3.5-17.0) ng/L B-Natriuretic Peptide (<100) pg/mL Total Protein 5.4 L (6.5-8.0) g/dL Albumin 2.6 L (3.5-5.0) g/dL Lipase (8-78) U/L Urine Color Urine Appearance Urine pH (5.0-9.0) Ur Specific Elon (1.005-1.025) Urine Protein (Neg-Trace) mg/dL Urine Glucose (UA) (Negative) mg/dL Urine Ketones (Negative) mg/dL Urine Blood (Negative) Urine Nitrite (Negative) Ur Leukocyte Esterase (Negative) Urine RBC (0-2) /HPF Urine WBC (0-5) /HPF Ur Squamous Epith Cells (0-2) /HPF Urine Bacteria (None Seen) Hyaline Casts (0-2) /LPF Urine Opiates Screen (Not Detect) Urine Fentanyl Screen (Not Detect) Ur Barbiturates Screen (Not Detect) Ur Phencyclidine Scrn (Not Detect) Ur Amphetamines Screen (Not Detect) U Benzodiazepines Scrn (Not Detect) Urine Cocaine Screen (Not Detect) U Marijuana (THC) Screen (Not Detect) Blood Type Antibody Screen 01/05/22 01/05/22 01/05/22 Range/Units 20:32 23:48 23:50 WBC (4.8-10.8) X10*3/uL RBC (4.20-5.50) X10*6/uL Hgb (12.0-16.0) g/dl Hct (37.0-47.0) % MCV (80.0-98.0) fL MCH (27.0-33.0) pg MCHC (31.0-35.0) g/dl RDW (11.0-16.0) % Plt Count (160-400) X10*3/uL MPV (9.4-12.3) fL Immature Gran % (Auto) (0.0-0.4) % Neut % (Auto) (45-73) % Lymph % (Auto) (20-40) % [place] % (Auto) (2-11) % Eos % (Auto) (0-4) % Baso % (Auto) (0-2) % Lymph # (Auto) (1.2-4.9) X10*3/uL [place] # (Auto) (0.1-1.2) X10*3/uL Eos # (Auto) (0.0-0.4) X10*3/uL Baso # (Auto) (0.0-0.2) X10*3/uL Abs Immat Gran (auto) (0.00-0.03) X10*3/uL Absolute Neuts (auto) (2.0-8.3) x10*3/uL Absolute Nucleated RBC (0.0-0.012) X10*3/uL Nucleated RBC % (auto) (0.0-0.2) /100WBC PT (10.0-13.1) SEC INR (0.9-1.1) D-Dimer High Sensitivty NG/ML Sodium (135-145) mmol/L Potassium (3.3-5.1) mmol/L Chloride (96-108) mmol/L Carbon Dioxide (22-29) mmol/L Anion Gap (12-20) BUN (9-16) mg/dL Creatinine (0.5-1.4) mg/dL Estim Creat Clear Calc Estimated GFR Random Glucose (60-115) mg/dL Calcium (8.4-10.2) mg/dL Magnesium (1.6-2.6) mg/dL Total Bilirubin (0.0-1.0) mg/dL Direct Bilirubin (0.0-0.5) mg/dL AST (5-31) U/L ALT (0-31) U/L Alkaline Phosphatase (39-117) U/L Troponin I High Sens (<3.5-17.0) ng/L B-Natriuretic Peptide (<100) pg/mL Total Protein (6.5-8.0) g/dL Albumin (3.5-5.0) g/dL Lipase (8-78) U/L Urine Color Yellow Urine Appearance Clear Urine pH 6.0 (5.0-9.0) Ur Specific [place]on 1.015 (1.005-1.025) Urine Protein >=1000 (4+) H (Neg-Trace) mg/dL Urine Glucose (UA) 500 H (Negative) mg/dL Urine Ketones Negative (Negative) mg/dL Urine Blood Moderate (2+) H (Negative) Urine Nitrite Negative (Negative) Ur Leukocyte Esterase Negative (Negative) Urine RBC 6-10 H (0-2) /HPF Urine WBC 0-5 (0-5) /HPF Ur Squamous Epith Cells 0-2 (0-2) /HPF Urine Bacteria 4+ (None Seen) Hyaline Casts 3-5 (0-2) /LPF Urine Opiates Screen Not Detected (Not Detect) Urine Fentanyl Screen Not Detected (Not Detect) Ur Barbiturates Screen Not Detected (Not Detect) Ur Phencyclidine Scrn Not Detected (Not Detect) Ur Amphetamines Screen Not Detected (Not Detect) U Benzodiazepines Scrn Not Detected (Not Detect) Urine Cocaine Screen Not Detected (Not Detect) U Marijuana (THC) Screen Not Detected (Not Detect) Blood Type A Positive Antibody Screen NEGATIVE <JOVON Knox - Last Filed: 01/05/22 14:42> Lab Results 01/05/22 01/05/22 01/05/22 Range/Units 14:48 14:48 14:48 WBC 6.0 (4.8-10.8) X10*3/uL RBC 2.75 L D (4.20-5.50) X10*6/uL Hgb 7.9 L D (12.0-16.0) g/dl Hct 24.7 L D (37.0-47.0) % MCV 89.8 (80.0-98.0) fL MCH 28.7 (27.0-33.0) pg MCHC 32.0 (31.0-35.0) g/dl RDW 14.2 (11.0-16.0) % Plt Count 240 (160-400) X10*3/uL MPV 11.3 (9.4-12.3) fL Immature Gran % (Auto) 0.7 H (0.0-0.4) % Neut % (Auto) 79.4 H (45-73) % Lymph % (Auto) 11.6 L (20-40) % [place] % (Auto) 5.7 (2-11) % Eos % (Auto) 2.3 (0-4) % Baso % (Auto) 0.3 (0-2) % Lymph # (Auto) 0.7 L (1.2-4.9) X10*3/uL [place] # (Auto) 0.3 (0.1-1.2) X10*3/uL Eos # (Auto) 0.1 (0.0-0.4) X10*3/uL Baso # (Auto) 0.0 (0.0-0.2) X10*3/uL Abs Immat Gran (auto) 0.04 H (0.00-0.03) X10*3/uL Absolute Neuts (auto) 4.7 (2.0-8.3) x10*3/uL Absolute Nucleated RBC 0.000 (0.0-0.012) X10*3/uL Nucleated RBC % (auto) 0.0 (0.0-0.2) /100WBC PT 12.4 (10.0-13.1) SEC INR 1.1 (0.9-1.1) D-Dimer High Sensitivty NG/ML Sodium 140 (135-145) mmol/L Potassium 4.4 (3.3-5.1) mmol/L Chloride 111 H (96-108) mmol/L Carbon Dioxide 18 L (22-29) mmol/L Anion Gap 15 (12-20) BUN 46 H D (9-16) mg/dL Creatinine 3.26 H (0.5-1.4) mg/dL Estim Creat Clear Calc 27.6 Estimated GFR 16 Random Glucose 206 H (60-115) mg/dL Calcium 7.4 L D (8.4-10.2) mg/dL Magnesium 1.9 (1.6-2.6) mg/dL Total Bilirubin 0.4 (0.0-1.0) mg/dL Direct Bilirubin 0.2 (0.0-0.5) mg/dL AST 11 D (5-31) U/L ALT 14 (0-31) U/L Alkaline Phosphatase 101 (39-117) U/L Troponin I High Sens (<3.5-17.0) ng/L B-Natriuretic Peptide (<100) pg/mL Total Protein 5.5 L (6.5-8.0) g/dL Albumin 2.6 L (3.5-5.0) g/dL Lipase 22 (8-78) U/L Urine Color Urine Appearance Urine pH (5.0-9.0) Ur Specific [place] (1.005-1.025) Urine Protein (Neg-Trace) mg/dL Urine Glucose (UA) (Negative) mg/dL Urine Ketones (Negative) mg/dL Urine Blood (Negative) Urine Nitrite (Negative) Ur Leukocyte Esterase (Negative) Urine RBC (0-2) /HPF Urine WBC (0-5) /HPF Ur Squamous Epith Cells (0-2) /HPF Urine Bacteria (None Seen) Hyaline Casts (0-2) /LPF Urine Opiates Screen (Not Detect) Urine Fentanyl Screen (Not Detect) Ur Barbiturates Screen (Not Detect) Ur Phencyclidine Scrn (Not Detect) Ur Amphetamines Screen (Not Detect) U Benzodiazepines Scrn (Not Detect) Urine Cocaine Screen (Not Detect) U Marijuana (THC) Screen (Not Detect) Blood Type Antibody Screen 01/05/22 01/05/22 01/05/22 Range/Units 14:48 14:48 14:48 WBC (4.8-10.8) X10*3/uL RBC (4.20-5.50) X10*6/uL Hgb (12.0-16.0) g/dl Hct (37.0-47.0) % MCV (80.0-98.0) fL MCH (27.0-33.0) pg MCHC (31.0-35.0) g/dl RDW (11.0-16.0) % Plt Count (160-400) X10*3/uL MPV (9.4-12.3) fL Immature Gran % (Auto) (0.0-0.4) % Neut % (Auto) (45-73) % Lymph % (Auto) (20-40) % [place] % (Auto) (2-11) % Eos % (Auto) (0-4) % Baso % (Auto) (0-2) % Lymph # (Auto) (1.2-4.9) X10*3/uL [place] # (Auto) (0.1-1.2) X10*3/uL Eos # (Auto) (0.0-0.4) X10*3/uL Baso # (Auto) (0.0-0.2) X10*3/uL Abs Immat Gran (auto) (0.00-0.03) X10*3/uL Absolute Neuts (auto) (2.0-8.3) x10*3/uL Absolute Nucleated RBC (0.0-0.012) X10*3/uL Nucleated RBC % (auto) (0.0-0.2) /100WBC PT (10.0-13.1) SEC INR (0.9-1.1) D-Dimer High Sensitivty 1911 NG/ML Sodium (135-145) mmol/L Potassium (3.3-5.1) mmol/L Chloride (96-108) mmol/L Carbon Dioxide (22-29) mmol/L Anion Gap (12-20) BUN (9-16) mg/dL Creatinine (0.5-1.4) mg/dL Estim Creat Clear Calc Estimated GFR Random Glucose (60-115) mg/dL Calcium (8.4-10.2) mg/dL Magnesium (1.6-2.6) mg/dL Total Bilirubin (0.0-1.0) mg/dL Direct Bilirubin (0.0-0.5) mg/dL AST (5-31) U/L ALT (0-31) U/L Alkaline Phosphatase (39-117) U/L Troponin I High Sens 22.0 H D (<3.5-17.0) ng/L B-Natriuretic Peptide 1621 H (<100) pg/mL Total Protein (6.5-8.0) g/dL Albumin (3.5-5.0) g/dL Lipase (8-78) U/L Urine Color Urine Appearance Urine pH (5.0-9.0) Ur Specific [place]on (1.005-1.025) Urine Protein (Neg-Trace) mg/dL Urine Glucose (UA) (Negative) mg/dL Urine Ketones (Negative) mg/dL Urine Blood (Negative) Urine Nitrite (Negative) Ur Leukocyte Esterase (Negative) Urine RBC (0-2) /HPF Urine WBC (0-5) /HPF Ur Squamous Epith Cells (0-2) /HPF Urine Bacteria (None Seen) Hyaline Casts (0-2) /LPF Urine Opiates Screen (Not Detect) Urine Fentanyl Screen (Not Detect) Ur Barbiturates Screen (Not Detect) Ur Phencyclidine Scrn (Not Detect) Ur Amphetamines Screen (Not Detect) U Benzodiazepines Scrn (Not Detect) Urine Cocaine Screen (Not Detect) U Marijuana (THC) Screen (Not Detect) Blood Type Antibody Screen 01/05/22 01/05/22 01/05/22 Range/Units 20:32 20:32 20:32 WBC 6.1 (4.8-10.8) X10*3/uL RBC 2.71 L (4.20-5.50) X10*6/uL Hgb 8.0 L (12.0-16.0) g/dl Hct 24.4 L (37.0-47.0) % MCV 90.0 (80.0-98.0) fL MCH 29.5 (27.0-33.0) pg MCHC 32.8 (31.0-35.0) g/dl RDW 14.1 (11.0-16.0) % Plt Count 226 (160-400) X10*3/uL MPV 11.6 (9.4-12.3) fL Immature Gran % (Auto) 0.7 H (0.0-0.4) % Neut % (Auto) 80.6 H (45-73) % Lymph % (Auto) 10.7 L (20-40) % [place] % (Auto) 5.9 (2-11) % Eos % (Auto) 1.8 (0-4) % Baso % (Auto) 0.3 (0-2) % Lymph # (Auto) 0.7 L (1.2-4.9) X10*3/uL [place] # (Auto) 0.4 (0.1-1.2) X10*3/uL Eos # (Auto) 0.1 (0.0-0.4) X10*3/uL Baso # (Auto) 0.0 (0.0-0.2) X10*3/uL Abs Immat Gran (auto) 0.04 H (0.00-0.03) X10*3/uL Absolute Neuts (auto) 4.9 (2.0-8.3) x10*3/uL Absolute Nucleated RBC 0.000 (0.0-0.012) X10*3/uL Nucleated RBC % (auto) 0.0 (0.0-0.2) /100WBC PT (10.0-13.1) SEC INR (0.9-1.1) D-Dimer High Sensitivty NG/ML Sodium 140 (135-145) mmol/L Potassium 4.3 (3.3-5.1) mmol/L Chloride 111 H (96-108) mmol/L Carbon Dioxide 18 L (22-29) mmol/L Anion Gap 15 (12-20) BUN 45 H (9-16) mg/dL Creatinine 3.29 H (0.5-1.4) mg/dL Estim Creat Clear Calc 27.4 Estimated GFR 16 Random Glucose 201 H (60-115) mg/dL Calcium 7.5 L (8.4-10.2) mg/dL Magnesium (1.6-2.6) mg/dL Total Bilirubin 0.4 (0.0-1.0) mg/dL Direct Bilirubin (0.0-0.5) mg/dL AST 11 (5-31) U/L ALT 13 (0-31) U/L Alkaline Phosphatase 97 (39-117) U/L Troponin I High Sens 21.7 H (<3.5-17.0) ng/L B-Natriuretic Peptide (<100) pg/mL Total Protein 5.4 L (6.5-8.0) g/dL Albumin 2.6 L (3.5-5.0) g/dL Lipase (8-78) U/L Urine Color Urine Appearance Urine pH (5.0-9.0) Ur Specific [place]on (1.005-1.025) Urine Protein (Neg-Trace) mg/dL Urine Glucose (UA) (Negative) mg/dL Urine Ketones (Negative) mg/dL Urine Blood (Negative) Urine Nitrite (Negative) Ur Leukocyte Esterase (Negative) Urine RBC (0-2) /HPF Urine WBC (0-5) /HPF Ur Squamous Epith Cells (0-2) /HPF Urine Bacteria (None Seen) Hyaline Casts (0-2) /LPF Urine Opiates Screen (Not Detect) Urine Fentanyl Screen (Not Detect) Ur Barbiturates Screen (Not Detect) Ur Phencyclidine Scrn (Not Detect) Ur Amphetamines Screen (Not Detect) U Benzodiazepines Scrn (Not Detect) Urine Cocaine Screen (Not Detect) U Marijuana (THC) Screen (Not Detect) Blood Type Antibody Screen 01/05/22 01/05/22 01/05/22 Range/Units 20:32 23:48 23:50 WBC (4.8-10.8) X10*3/uL RBC (4.20-5.50) X10*6/uL Hgb (12.0-16.0) g/dl Hct (37.0-47.0) % MCV (80.0-98.0) fL MCH (27.0-33.0) pg MCHC (31.0-35.0) g/dl RDW (11.0-16.0) % Plt Count (160-400) X10*3/uL MPV (9.4-12.3) fL Immature Gran % (Auto) (0.0-0.4) % Neut % (Auto) (45-73) % Lymph % (Auto) (20-40) % [place] % (Auto) (2-11) % Eos % (Auto) (0-4) % Baso % (Auto) (0-2) % Lymph # (Auto) (1.2-4.9) X10*3/uL [place] # (Auto) (0.1-1.2) X10*3/uL Eos # (Auto) (0.0-0.4) X10*3/uL Baso # (Auto) (0.0-0.2) X10*3/uL Abs Immat Gran (auto) (0.00-0.03) X10*3/uL Absolute Neuts (auto) (2.0-8.3) x10*3/uL Absolute Nucleated RBC (0.0-0.012) X10*3/uL Nucleated RBC % (auto) (0.0-0.2) /100WBC PT (10.0-13.1) SEC INR (0.9-1.1) D-Dimer High Sensitivty NG/ML Sodium (135-145) mmol/L Potassium (3.3-5.1) mmol/L Chloride (96-108) mmol/L Carbon Dioxide (22-29) mmol/L Anion Gap (12-20) BUN (9-16) mg/dL Creatinine (0.5-1.4) mg/dL Estim Creat Clear Calc Estimated GFR Random Glucose (60-115) mg/dL Calcium (8.4-10.2) mg/dL Magnesium (1.6-2.6) mg/dL Total Bilirubin (0.0-1.0) mg/dL Direct Bilirubin (0.0-0.5) mg/dL AST (5-31) U/L ALT (0-31) U/L Alkaline Phosphatase (39-117) U/L Troponin I High Sens (<3.5-17.0) ng/L B-Natriuretic Peptide (<100) pg/mL Total Protein (6.5-8.0) g/dL Albumin (3.5-5.0) g/dL Lipase (8-78) U/L Urine Color Yellow Urine Appearance Clear Urine pH 6.0 (5.0-9.0) Ur Specific [place] 1.015 (1.005-1.025) Urine Protein >=1000 (4+) H (Neg-Trace) mg/dL Urine Glucose (UA) 500 H (Negative) mg/dL Urine Ketones Negative (Negative) mg/dL Urine Blood Moderate (2+) H (Negative) Urine Nitrite Negative (Negative) Ur Leukocyte Esterase Negative (Negative) Urine RBC 6-10 H (0-2) /HPF Urine WBC 0-5 (0-5) /HPF Ur Squamous Epith Cells 0-2 (0-2) /HPF Urine Bacteria 4+ (None Seen) Hyaline Casts 3-5 (0-2) /LPF Urine Opiates Screen Not Detected (Not Detect) Urine Fentanyl Screen Not Detected (Not Detect) Ur Barbiturates Screen Not Detected (Not Detect) Ur Phencyclidine Scrn Not Detected (Not Detect) Ur Amphetamines Screen Not Detected (Not Detect) U Benzodiazepines Scrn Not Detected (Not Detect) Urine Cocaine Screen Not Detected (Not Detect) U Marijuana (THC) Screen Not Detected (Not Detect) Blood Type A Positive Antibody Screen NEGATIVE <Ivette Kincaid MD - Last Filed: 01/06/22 01:14> Critical Care Time Critical Care Time Critical Care Time: Yes <Ivette Kincaid MD - Last Filed: 01/06/22 01:14> Total Critical Care Time: 120 <Ivette Kincaid MD - Last Filed: 01/06/22 01:14> Attestation: I personally attest to this time spent taking care of the patient. <Ivtete Kincaid MD - Last Filed: 01/06/22 01:14> Discharge Plan Discharge Clinical Impression: Hypertensive crisis, Acute exacerbation of CHF (congestive heart failure), Hypoxia, Acute renal failure, Pre-eclampsia, Bilateral pleural effusion, Pericardial effusion <JOVON Knox - Last Filed: 01/05/22 14:42> Patient Disposition: [facility] <JOVON Knox Last Filed: 01/05/22 14:42> Transfer Details: Higher level of care <JOVON Knox Last Filed: 01/05/22 14:42> Higher level of care <Ivette Kincaid MD - Last Filed: 01/06/22 01:14> Prescriptions: No Action insulin aspart U-100 [Novolog Flexpen U-100 Insulin] 100 unit/mL (3 mL) insulin pen See Protocol subcut DIRECTED PRN (Reason: Hyperglycemia) Protocol: Insulin Correction Scale Less than or equal to 110 ---- Give (units): 0 111 to 150 Give (units): 0 151 to 200 Give (units): 2 201 to 250 Give (units): 4 251 to 300 Give (units): 6 301 to 350 Give (units): 8 Greater than 350 Give (units): 10 Call MD if Blood Glucose > : 350 Rx Instructions: max daily dose of 50 units Jardiance 10 mg tablet 1 tab PO QAM sertraline 25 mg tablet 1 tab PO DAILY ferrous sulfate 325 mg (65 mg iron) tablet 325 mg PO DAILY Qty: 30 0RF Levemir FlexTouch U-100 Insuln 100 unit/mL (3 mL) insulin pen 20 unit subcut DAILY Qty: 0 0RF isosorbide mononitrate 30 mg Tablet Extended Release 24 Hr 30 mg PO DAILY Qty: 30 0RF Protocol: Hold for SBP< HOLD for SBP < : 90 spironolactone 25 mg Tablet 50 mg PO DAILY Qty: 30 0RF Protocol: Hold for SBP< HOLD for SBP < : 90 amlodipine 10 mg Tablet 10 mg PO DAILY Qty: 30 0RF Protocol: Hold for SBP< HOLD for SBP < : 90 furosemide 20 mg Tablet 20 mg PO DAILY Qty: 30 0RF Protocol: Hold for SBP< HOLD for SBP < : 90 valsartan 40 mg Tablet 40 mg PO BID Qty: 60 0RF Protocol: Hold for SBP< HOLD for SBP < : 90 metoprolol tartrate 25 mg Tablet 25 mg PO BID Qty: 60 0RF Protocol: Hold for SBP/HR < HOLD for SBP < : 90 HOLD for HR < : 60 levofloxacin 750 mg tablet 750 mg PO DAILY Qty: 14 0RF doxycycline hyclate 100 mg capsule 100 mg PO BID 7 Days Qty: 14 0RF Robitussin Cough-Chest Elio DM 5-100 mg/5 mL liquid 10 ml PO Q4-8H PRN (Reason: cough) Qty: 118 0RF <JOVON Knox - Last Filed: 01/05/22 14:42>
--- NOTE | 2022-01-05 14:38 | ECG_ITS ---
Test Reason : sob,hbp Blood Pressure : / mmHG Vent. Rate : 107 BPM Atrial Rate : 107 BPM P-R Int : 150 ms QRS Dur : 128 ms QT Int : 378 ms P-R-T Axes : 062 031 077 degrees QTc Int : 504 ms Sinus tachycardia Possible Left atrial enlargement Right bundle branch block Abnormal ECG When compared with ECG of 17-JAN-2021 07:24, Nonspecific T wave abnormality now evident in Lateral leads Heart rate has decreased Referred By: Urszula Garcia Electronically Signed By:JEREMÍAS SANDOVAL MD
[2022-01-05 14:57] LABS: MANUAL DIFF FLAG NO
[2022-01-05 15:01] LABS: Basophils Percent Auto 0.3 % (0-2); Eosinophils Absolute Auto 0.1 X10*3/uL (0.0-0.4); Eosinophils Percent Auto 2.3 % (0-4); Hematocrit 24.7 % (37.0-47.0); Hemoglobin 7.9 g/dl (12.0-16.0); Imm Gran Abs Auto 0.04 X10*3/uL (0.00-0.03); Imm Gran Pct Auto 0.7 % (0.0-0.4); Lymphocytes Absolute Auto 0.7 X10*3/uL (1.2-4.9); Lymphocytes Percent Auto 11.6 % (20-40); Mean Corpuscular Hemoglobin 28.7 pg (27.0-33.0); Mean Corpuscular Volume 89.8 fL (80.0-98.0); Mean Platelet Volume 11.3 fL (9.4-12.3); Monocytes Absolute Auto 0.3 X10*3/uL (0.1-1.2); Monocytes Percent Auto 5.7 % (2-11); Neutrophils Absolute Auto 4.7 x10*3/uL (2.0-8.3); Neutrophils Percent Auto 79.4 % (45-73); Platelet Count 240 X10*3/uL (160-400); Red Blood Count 2.75 X10*6/uL (4.20-5.50); Red Cell Distribution Width 14.2 % (11.0-16.0)
[2022-01-05 15:08] LABS: INTERNATIONAL NORM RATIO 1.1 (0.9-1.1); Prothrombin Time 12.4 SEC (10.0-13.1)
[2022-01-05 15:11] LABS: D Dimer High Sensitivity 1911 NG/ML
[2022-01-05 15:19] LABS: B Type Natriuretic Peptide 1621 pg/mL (<100)
[2022-01-05 15:21] LABS: Alanine Aminotransferase 14 U/L (0-31); Albumin Level 2.6 g/dL (3.5-5.0); Alkaline Phosphatase 101 U/L (39-117); Anion Gap 15 (12-20); Aspartate Amino Transferase 11 U/L (5-31); Bilirubin Direct 0.2 mg/dL (0.0-0.5); Bilirubin Total 0.4 mg/dL (0.0-1.0); Blood Urea Nitrogen 46 mg/dL (9-16); Calcium 7.4 mg/dL (8.4-10.2); Carbon Dioxide 18 mmol/L (22-29); Chloride 111 mmol/L (96-108); Creatinine Clr Calc Pharmacy 27.6; Estimated Glomerular Filt Rate 16; Glucose Random 206 mg/dL (60-115); Lipase 22 U/L (8-78); Potassium 4.4 mmol/L (3.3-5.1); Sodium 140 mmol/L (135-145); Total Protein 5.5 g/dL (6.5-8.0)
--- NOTE | 2022-01-05 15:24 | ED.CHESTPAIN ---
HPI - Chest Pain General Chief Complaint: General Medical Stated Complaint: R RIB PAIN/L LEG PAIN X'S 2 WEEKS PER EMS Time Seen by Provider: 01/05/22 15:16 Source: patient Mode of arrival: EMS Limitations: no limitations History of Present Illness HPI narrative: 31-year-old female who presents emergency department for evaluation of left sided chest pain and right lower extremity swelling x2 weeks. Patient states that 2 weeks prior she had a sudden onset of left-sided chest pain. She describes the pain is a constant, pressure-like pain which waxes and wanes in intensity and is 10/10 its worst. The pain is worse with movement with coughing. She states she has had an intermittent nonproductive cough. Patient states she has had similar pains in her chest in the past and she gets this every month. She states that she had this type of pain 1 month prior and was seen at [facility] and was worked up for pulmonary embolism and this was negative. Patient states that her right lower extremity has been swollen for 2 weeks. She denies any pain in the leg, she denies any trauma. She states she also has some mild swelling in the left lower extremity. She states she has a history of heart failure and she has had difficulty with swelling in her extremities in the past. The patient is 1 month and had a 1 month prior which was complicated by bleeding requiring transfusion. Related Data Home Medications Medication Instructions Recorded Confirmed empagliflozin 10 mg tablet 1 tab PO QAM 12/07/20 01/14/21 (Jardiance) insulin aspart U-100 100 unit/mL See Protocol subcut DIRECTED 12/07/20 01/14/21 (3 mL) subcutaneous pen (Novolog PRN Hyperglycemia Flexpen U-100 Insulin aspart) sertraline 25 mg tablet 1 tab PO DAILY 12/07/20 01/14/21 Previous Rx's Medication Instructions Recorded ferrous sulfate 325 mg (65 mg 325 mg PO DAILY #30 tabs 12/11/20 iron) tablet insulin detemir U-100 100 unit/mL 20 unit (0.2 mL) subcut DAILY #0 mL 12/11/20 (3 mL) subcutaneous pen (Levemir FlexTouch U-100 Insulin) amlodipine 10 mg tablet 10 mg PO DAILY #30 tabs 01/19/21 furosemide 20 mg tablet 20 mg PO DAILY #30 tabs 01/19/21 isosorbide mononitrate 30 mg 30 mg PO DAILY #30 tabs 01/19/21 tablet,extended release 24 hr levofloxacin 750 mg tablet 750 mg PO DAILY #14 tabs 01/19/21 metoprolol tartrate 25 mg tablet 25 mg PO BID #60 tabs 01/19/21 spironolactone 25 mg tablet 50 mg PO DAILY #30 tabs 01/19/21 valsartan 40 mg tablet 40 mg PO BID #60 tabs 01/19/21 dextromethorphan-guaifenesin 5 10 ml PO Q4-8H PRN cough #118 mL 02/02/21 mg-100 mg/5 mL oral liquid (Robitussin Cough-Chest Congestion DM) doxycycline hyclate 100 mg capsule 100 mg PO BID cough 7 days #14 caps 02/02/21 Allergies Allergy/AdvReac Type Severity Reaction Status Date / Time morphine [MORPHINE] Allergy Intermediate Itching Verified 01/14/21 07:31 azithromycin [From Zithromax] Allergy Hives Verified 04/21/21 21:21 vancomycin Allergy Hives Verified 04/21/21 21:21 [facility] Past Medical History Medical History Abnormal finding on echocardiogram Acute dyspnea Acute worsening of stage 3 chronic kidney disease MYNOR (acute kidney injury) Asthma Back pain Blind right eye Bone infection Cellulitis Cellulitis and abscess of foot Chest pain CHF (congestive heart failure) Depression with anxiety Diabetes Diabetic retinopathy DM foot ulcer Elevated troponin Essential hypertension Fever Generalized edema HTN (hypertension) Migraine Osteomyelitis PAD (peripheral artery disease) Pleural effusion test positive test positive Sepsis Severe anemia Tachycardia Type 2 diabetes mellitus with hyperglycemia, with long-term current use of insulin Surgical History History of transmetatarsal amputation of foot S/P transmetatarsal amputation of foot Family History Family History Mother Coronary artery disease Myocardial infarction Stroke Diabetes mellitus Father Myocardial infarction Social History Social History Household Members: Significant Other Household Members Other:: Sister, [id number], nephew Housing: Apartment Do you presently have visiting nurse or other home services: Yes ([employer] services) Alcohol intake: never Patient Tobacco Use Status: Never used Tobacco e-Cigarette/Vaping Use: Never Used Second Hand Smoke Exposure: No Advance Directives: Yes Advance Directives on File: Yes Advance Directives Date on File: 03/08/20 service: No Current occupational status: unemployed and disabled Gender identity: Female Physical Exam Vital Signs: Vital Signs: Last Vital Signs Temp 97.5 F 01/05/22 14:32 Pulse 110 H 01/05/22 16:00 Resp 18 01/05/22 16:00 BP 197/119 H 01/05/22 16:00 Pulse Ox 97 01/05/22 16:00 O2 Del Method 01/05/22 16:00 BMI result Body Mass Index 31.9 Const: Other: Awake, alert, female patient, she appears to be in distress secondary to her left-sided chest pain, she is crying, she answers all questions appropriately and is cooperative. HEENT: Head: Yes normal to inspection, Yes normocephalic and Yes atraumatic Ears: external ears normal General nose exam: Normal external nose present Face and sinus: Yes normal facial exam Mouth: Normal oral and palatal mucosa present Throat: Yes posterior oropharynx normal Eyes: General: appearance normal, both eyes and all related structures Pupils: Equal, round and reactive pupils present Neck: Neck: Yes normal visual inspection, Yes no lymphadenopathy, Yes trachea midline and Yes supple Chest: Chest palpation & inspection: normal inspection of the chest and tenderness (Moderate left anterior chest wall tenderness) Resp: Effort & Inspection: normal respiratory effort and able to speak in complete sentences Auscultation: clear to auscultation bilaterally Cardio: Rate: regular rate Rhythm: regular rhythm Heart sounds: S1 normal heart sound present, S2 normal heart sound present and no murmurs GI: Inspection: Yes normal to inspection Palpation (GI): Soft to palpation, nontender and no guarding Auscultation: normal bowel sounds : General: Yes no CVA tenderness Back/Spine/Pelvis: Back: no CVA tenderness Skin: General skin exam: no rashes or lesions noted Neuro: Cranial nerves: Yes CN's II-XII intact bilaterally and Yes Equal, round and reactive pupils present Cognition (Neuro): normal cognition Motor exam (neuro): 5/5 motor strength present throughout Extrem: Other: Patient's right lower extremity is 1/2 times the size the left lower extremity, both lower extremities have trace pitting edema. General: Yes normal to inspection Psych: Appearance: grossly normal Speech and movement: Normal speech and movement present Affect: normal affect Attitude: cooperative Thought process: Normal thought process present Thought content: Normal thought content present Course Course Course Narrative: 31-year-old female who presents emergency department for evaluation of left-sided chest pain x2 weeks and right lower extremity swelling x2 weeks. The patient is and had a 1 month prior which was complicated by bleeding requiring transfusion of 1 unit packed red blood cells. Vital signs revealed an elevated blood pressure of 191/100 with an elevated pulse of 110. Patient's exam did reveal an elevated blood pressure and an elevated pulse with a normal O2 saturation. Patient does have left-sided anterior chest wall tenderness as well as asymmetric swelling of her lower extremities with the right lower extremity being 1/2 times the size of the left lower extremity. 1653: Laboratory evaluation: H&H was low 7.9 and 24.7 compared to an H&H of 04/22/2021 10.5 and 31.3. Patient is and did have hemorrhage requiring transfusion 1 month prior. D-dimer elevated 1911. BUN and creatinine elevated 46 and 3.26 which is increased compared to BUN and creatinine 241.79 on 04/22/2021. Troponin elevated 22.0. BNP elevated 1621-this could be secondary to acute on chronic kidney disease. Radiology evaluation: Duplex ultrasound right lower extremity negative. Chest x-ray was reviewed by me, patient does have increased interstitial markings bilaterally. The patient has chronic kidney disease which is worse than her baseline suggests that she may have acute injury. the patient's D-dimer and proBNP are elevated and and concerned that she may have a pulmonary embolism therefore I did order a nuclear medicine V/Q scan on the patient. I will order a type and screen. Patient did get some improvement with the above treatment but is requesting more pain medications and antiemetics therefore she was ordered Dilaudid 1 mg IV, Benadryl 50 mg IV and Reglan 10 mg IV. At the end of my shift, the patient's care was turned over to my colleague, Dr. Ivette Kincaid. Medications Administered Discontinued Medications Generic Name Dose Route Start Last Admin Trade Name Freq PRN Reason Stop Dose Admin Hydromorphone HCl 1 mg 01/05/22 15:41 01/05/22 16:32 Hydromorphone Hcl 1 Mg/Ml Syringe IVPUSH 01/05/22 15:42 1 mg ONCE STA Administration Protocol MDM - Chest Pain Lab Data Result diagrams: 01/05/22 14:48 01/05/22 14:48 Labs: Lab Results 01/05/22 01/05/22 01/05/22 Range/Units 14:48 14:48 14:48 WBC 6.0 (4.8-10.8) X10*3/uL RBC 2.75 L D (4.20-5.50) X10*6/uL Hgb 7.9 L D (12.0-16.0) g/dl Hct 24.7 L D (37.0-47.0) % MCV 89.8 (80.0-98.0) fL MCH 28.7 (27.0-33.0) pg MCHC 32.0 (31.0-35.0) g/dl RDW 14.2 (11.0-16.0) % Plt Count 240 (160-400) X10*3/uL MPV 11.3 (9.4-12.3) fL Immature Gran % (Auto) 0.7 H (0.0-0.4) % Neut % (Auto) 79.4 H (45-73) % Lymph % (Auto) 11.6 L (20-40) % [place] % (Auto) 5.7 (2-11) % Eos % (Auto) 2.3 (0-4) % Baso % (Auto) 0.3 (0-2) % Lymph # (Auto) 0.7 L (1.2-4.9) X10*3/uL [place] # (Auto) 0.3 (0.1-1.2) X10*3/uL Eos # (Auto) 0.1 (0.0-0.4) X10*3/uL Baso # (Auto) 0.0 (0.0-0.2) X10*3/uL Abs Immat Gran (auto) 0.04 H (0.00-0.03) X10*3/uL Absolute Neuts (auto) 4.7 (2.0-8.3) x10*3/uL Absolute Nucleated RBC 0.000 (0.0-0.012) X10*3/uL Nucleated RBC % (auto) 0.0 (0.0-0.2) /100WBC PT 12.4 (10.0-13.1) SEC INR 1.1 (0.9-1.1) D-Dimer High Sensitivty NG/ML Sodium 140 (135-145) mmol/L Potassium 4.4 (3.3-5.1) mmol/L Chloride 111 H (96-108) mmol/L Carbon Dioxide 18 L (22-29) mmol/L Anion Gap 15 (12-20) BUN 46 H D (9-16) mg/dL Creatinine 3.26 H (0.5-1.4) mg/dL Estim Creat Clear Calc 27.6 Estimated GFR 16 Random Glucose 206 H (60-115) mg/dL Calcium 7.4 L D (8.4-10.2) mg/dL Total Bilirubin 0.4 (0.0-1.0) mg/dL Direct Bilirubin 0.2 (0.0-0.5) mg/dL AST 11 D (5-31) U/L ALT 14 (0-31) U/L Alkaline Phosphatase 101 (39-117) U/L Troponin I High Sens (<3.5-17.0) ng/L B-Natriuretic Peptide (<100) pg/mL Total Protein 5.5 L (6.5-8.0) g/dL Albumin 2.6 L (3.5-5.0) g/dL Lipase 22 (8-78) U/L 01/05/22 01/05/22 01/05/22 Range/Units 14:48 14:48 14:48 WBC (4.8-10.8) X10*3/uL RBC (4.20-5.50) X10*6/uL Hgb (12.0-16.0) g/dl Hct (37.0-47.0) % MCV (80.0-98.0) fL MCH (27.0-33.0) pg MCHC (31.0-35.0) g/dl RDW (11.0-16.0) % Plt Count (160-400) X10*3/uL MPV (9.4-12.3) fL Immature Gran % (Auto) (0.0-0.4) % Neut % (Auto) (45-73) % Lymph % (Auto) (20-40) % [place] % (Auto) (2-11) % Eos % (Auto) (0-4) % Baso % (Auto) (0-2) % Lymph # (Auto) (1.2-4.9) X10*3/uL [place] # (Auto) (0.1-1.2) X10*3/uL Eos # (Auto) (0.0-0.4) X10*3/uL Baso # (Auto) (0.0-0.2) X10*3/uL Abs Immat Gran (auto) (0.00-0.03) X10*3/uL Absolute Neuts (auto) (2.0-8.3) x10*3/uL Absolute Nucleated RBC (0.0-0.012) X10*3/uL Nucleated RBC % (auto) (0.0-0.2) /100WBC PT (10.0-13.1) SEC INR (0.9-1.1) D-Dimer High Sensitivty 1911 NG/ML Sodium (135-145) mmol/L Potassium (3.3-5.1) mmol/L Chloride (96-108) mmol/L Carbon Dioxide (22-29) mmol/L Anion Gap (12-20) BUN (9-16) mg/dL Creatinine (0.5-1.4) mg/dL Estim Creat Clear Calc Estimated GFR Random Glucose (60-115) mg/dL Calcium (8.4-10.2) mg/dL Total Bilirubin (0.0-1.0) mg/dL Direct Bilirubin (0.0-0.5) mg/dL AST (5-31) U/L ALT (0-31) U/L Alkaline Phosphatase (39-117) U/L Troponin I High Sens 22.0 H D (<3.5-17.0) ng/L B-Natriuretic Peptide 1621 H (<100) pg/mL Total Protein (6.5-8.0) g/dL Albumin (3.5-5.0) g/dL Lipase (8-78) U/L Discharge Plan Discharge Clinical Impression: Chest pain, Localized swelling of right lower extremity, Acute kidney injury, Chronic kidney disease Patient Disposition: Still a Patient Prescriptions: No Action insulin aspart U-100 [Novolog Flexpen U-100 Insulin] 100 unit/mL (3 mL) insulin pen See Protocol subcut DIRECTED PRN (Reason: Hyperglycemia) Protocol: Insulin Correction Scale Less than or equal to 110 ---- Give (units): 0 111 to 150 Give (units): 0 151 to 200 Give (units): 2 201 to 250 Give (units): 4 251 to 300 Give (units): 6 301 to 350 Give (units): 8 Greater than 350 Give (units): 10 Call MD if Blood Glucose > : 350 Rx Instructions: max daily dose of 50 units Jardiance 10 mg tablet 1 tab PO QAM sertraline 25 mg tablet 1 tab PO DAILY ferrous sulfate 325 mg (65 mg iron) tablet 325 mg PO DAILY Qty: 30 0RF Levemir FlexTouch U-100 Insuln 100 unit/mL (3 mL) insulin pen 20 unit subcut DAILY Qty: 0 0RF isosorbide mononitrate 30 mg Tablet Extended Release 24 Hr 30 mg PO DAILY Qty: 30 0RF Protocol: Hold for SBP< HOLD for SBP < : 90 spironolactone 25 mg Tablet 50 mg PO DAILY Qty: 30 0RF Protocol: Hold for SBP< HOLD for SBP < : 90 amlodipine 10 mg Tablet 10 mg PO DAILY Qty: 30 0RF Protocol: Hold for SBP< HOLD for SBP < : 90 furosemide 20 mg Tablet 20 mg PO DAILY Qty: 30 0RF Protocol: Hold for SBP< HOLD for SBP < : 90 valsartan 40 mg Tablet 40 mg PO BID Qty: 60 0RF Protocol: Hold for SBP< HOLD for SBP < : 90 metoprolol tartrate 25 mg Tablet 25 mg PO BID Qty: 60 0RF Protocol: Hold for SBP/HR < HOLD for SBP < : 90 HOLD for HR < : 60 levofloxacin 750 mg tablet 750 mg PO DAILY Qty: 14 0RF doxycycline hyclate 100 mg capsule 100 mg PO BID 7 Days Qty: 14 0RF Robitussin Cough-Chest Elio DM 5-100 mg/5 mL liquid 10 ml PO Q4-8H PRN (Reason: cough) Qty: 118 0RF
[2022-01-05] MEDS: HYDROmorphone HCl 1 MG/ML SYRINGE IVPUSH (16:32)
--- NOTE | 2022-01-05 16:42 | PC.NURSE ---
pt a&ox3, hypertensive, sinus tach, 20G IV placed left wrist, medicated per provider order for 10/10 pain. pending u/s results and urine sample from pt. no new orders at this time.
[2022-01-05] MEDS: Metoclopramide HCl 10 MG/2 ML VIAL IVPUSH (18:24)
[2022-01-05] MEDS: diphenhydrAMINE HCL 50 MG/ML VIAL 25 MG IVPUSH (18:24)
[2022-01-05] MEDS: Nitroglycerin 2 % Oint 1 GM Packet 0.5 INCH TRANSDERMA (18:25)
--- NOTE | 2022-01-05 18:27 | PM.GYNCN ---
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 The pain is worse with movement with coughing it is associated with an intermittent nonproductive cough.? Patient's gives a history that she had this type of pain 1 month prior and was seen at [facility] and was worked up for pulmonary embolism and this was negative. In addition, the patient is complaining of right and left lower extremity has been swollen for 2 weeks.? She states she has a history of heart failure and she has had difficulty with swelling in her extremities in the past. Blood pressure is 197/119 cc:: CC: OB [facility] Past Medical History Medical History Abnormal finding on echocardiogram Acute dyspnea Acute worsening of stage 3 chronic kidney disease MYNOR (acute kidney injury) Asthma Back pain Blind right eye Bone infection Cellulitis Cellulitis and abscess of foot Chest pain CHF (congestive heart failure) Depression with anxiety Diabetes Diabetic retinopathy DM foot ulcer Elevated troponin Essential hypertension Fever Generalized edema HTN (hypertension) Migraine Osteomyelitis PAD (peripheral artery disease) Pleural effusion test positive test positive Sepsis Severe anemia Tachycardia Type 2 diabetes mellitus with hyperglycemia, with long-term current use of insulin Family History Family History Mother Coronary artery disease Myocardial infarction Stroke Diabetes mellitus Father Myocardial infarction Surgical History Surgical History History of transmetatarsal amputation of foot S/P transmetatarsal amputation of foot Social History Social History Household Members: Significant Other Household Members Other:: Sister, [id number], nephew Housing: Apartment Do you presently have visiting nurse or other home services: Yes ([employer]) Alcohol intake: never Patient Tobacco Use Status: Never used Tobacco e-Cigarette/Vaping Use: Never Used Second Hand Smoke Exposure: No Advance Directives: Yes Advance Directives on File: Yes Advance Directives Date on File: 03/08/20 service: No Current occupational status: unemployed and disabled Gender identity: Female Meds Allergies Allergy/AdvReac Type Severity Reaction Status Date / Time morphine [MORPHINE] Allergy Intermediate Itching Verified 01/14/21 07:31 azithromycin [From Zithromax] Allergy Hives Verified 04/21/21 21:21 vancomycin Allergy Hives Verified 04/21/21 21:21 Home Medications Medication Instructions Recorded Confirmed Last Taken Type empagliflozin 10 mg tablet 1 tab PO QAM 12/07/20 01/14/21 Unknown History (Jardiance) insulin aspart U-100 100 unit/mL See Protocol subcut DIRECTED 12/07/20 01/14/21 Unknown History (3 mL) subcutaneous pen (Novolog PRN Hyperglycemia Flexpen U-100 Insulin aspart) sertraline 25 mg tablet 1 tab PO DAILY 12/07/20 01/14/21 Unknown History 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 Physical Exam Vitals Vital signs: Temp Pulse Resp BP Pulse Ox O2 Del Method 97.5 F 110 H 18 197/119 H 97 01/05/22 14:32 01/05/22 16:00 01/05/22 16:00 01/05/22 16:00 01/05/22 16:00 01/05/22 16:00 BMI result Body Mass Index 31.9 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 - Results Labs CBC & Chem 7: 01/05/22 20:32 01/05/22 20:32 Labs: Short CBC 01/05/22 Range/Units 14:48 WBC 6.0 (4.8-10.8) X10*3/uL Hgb 7.9 L D (12.0-16.0) g/dl Hct 24.7 L D (37.0-47.0) % Plt Count 240 (160-400) X10*3/uL BMP 01/05/22 14:48 Sodium 140 Potassium 4.4 Chloride 111 H Carbon Dioxide 18 L BUN 46 H D Creatinine 3.26 H Calcium 7.4 L D Liver Function 01/05/22 Range/Units 14:48 Total Bilirubin 0.4 (0.0-1.0) mg/dL Direct Bilirubin 0.2 (0.0-0.5) mg/dL AST 11 D (5-31) U/L ALT 14 (0-31) U/L Alkaline Phosphatase 101 (39-117) U/L Albumin 2.6 L (3.5-5.0) g/dL Imaging Venous US: Radiologist's impression: ITS Impressions Venous Duplex 01/05/22 16:25 IMPRESSION: No DVT demonstrated in the right lower extremity. Chest X-Ray 01/05/22 17:18 IMPRESSION: 1. Mild indistinctness of the central pulmonary vasculature which may reflect pulmonary venous congestion. 2. Borderline enlarged cardiac silhouette. 3. Trace bilateral pleural effusions are suspected on the lateral view although evaluation is somewhat limited by motion degradation. 4. No displaced rib fracture radiographs have sensitivity for the evaluation of rib fractures and if clinical concern, CT chest is advised. Knee X-Ray 01/05/22 17:18 IMPRESSION: No acute finding. Possible trace effusion. Some minimal early patellofemoral spurring. Possible vascular calcification inferior to the patella Assessment and Plan (1) Unspecified hypertension, condition or complication: Status: Acute Differential diagnosis includes hypertension with superimposed preeclampsia s/p Mgso4 Recommended to Dr. Ramirez to implement one of the emergent hypertension protocol (labetalol, to avoid with congestive heart failure, hydralazine or nifedipine protocol), with immediate treatment, BP goal is SBP<160/and DBP< 110 nathaly to reduce the risk of stroke in other potential complications, I/O, once blood pressure is stable, transfer patient out to [facility]. 7:30 pm > I arrived to the emergency, blood pressure was still above the threshold and the patient was receiving her 3rd dose of labetalol, 80 mg IV; discussed with Dr. Ramirez that it is recommended to avoid labetalol with congestive heart failure, recommended 10 mg of hydralazine as a next step per protocol, Dr. Ramirez stated that labetalol is not cardiosensitive, in addition, the patient has an elevated baseline heart rate, hydralazine might not be an optimal treatment for hypertension and recommended nitropaste; given the complex medical comorbid conditions of the patient, I deferred the hypertensive management to Dr. Ramirez. 21:47 > I received a message from , I called back Dr. Ramirez stated that [facility] declined the transfer since the patient received magnesium, I explained that the patient can be admitted at [facility] if the hospitalist on-call is comfortable managing the patient at [facility]; however, in case any management input from the OB service is needed, this should be provided by a Maternal- Medicine attending available on staff with expertise in multiple complex medical co-morbidities in the rather than a general OBGYN; however MFM service is not available at [facility]; therefore, I recommend the patient to be transferred to a tertiary care center with MFM service available on staff. (2) Acute exacerbation of CHF (congestive heart failure): Status: Acute Differential diagnosis could be exacerbation of CHF from hypertensive crisis, preeclampsia and rule out possible PE
[2022-01-05 18:46] LABS: Magnesium 1.9 mg/dL (1.6-2.6)
[2022-01-05] MEDS: Labetalol HCL 100 MG/20 ML VIAL 20 MG IVPUSH (18:49)
--- NOTE | 2022-01-05 18:54 | PC.NURSE ---
pt a&ox3, pt remains hypertensive/sinus tach, medicated per provider order - 1/2in nitro paste applied to L chest. pt continues to report 9/10 pain, pain medication held at provider request. plan per provider to transfer pt.
--- NOTE | 2022-01-05 18:58 | PC.NURSE ---
pt O2 sat 88-92 on RA, O2 applied at 2L, O2 sat improved to 96.
[2022-01-05] MEDS: Furosemide 40 MG/4 ML VIAL IVPUSH (19:02)
--- NOTE | 2022-01-05 19:07 | PC.NURSE ---
medicated per provider order w IV lasix, pt continues to report 9/10 chest/leg pain and remains hypertensive.
[2022-01-05] MEDS: Labetalol HCL 100 MG/20 ML VIAL 40 MG IVPUSH (19:16)
[2022-01-05] MEDS: Labetalol HCL 100 MG/20 ML VIAL 80 MG IVPUSH (19:34)
[2022-01-05] MEDS: Nitroglycerin 2 % Oint 1 GM Packet 1 INCH TRANSDERMA (20:11)
[2022-01-05 20:39] LABS: MANUAL DIFF FLAG NO
[2022-01-05 20:42] LABS: Basophils Percent Auto 0.3 % (0-2); Eosinophils Absolute Auto 0.1 X10*3/uL (0.0-0.4); Eosinophils Percent Auto 1.8 % (0-4); Hematocrit 24.4 % (37.0-47.0); Imm Gran Abs Auto 0.04 X10*3/uL (0.00-0.03); Imm Gran Pct Auto 0.7 % (0.0-0.4); Lymphocytes Absolute Auto 0.7 X10*3/uL (1.2-4.9); Lymphocytes Percent Auto 10.7 % (20-40); Mean Corpuscular HGB Conc 32.8 g/dl (31.0-35.0); Mean Corpuscular Hemoglobin 29.5 pg (27.0-33.0); Mean Platelet Volume 11.6 fL (9.4-12.3); Monocytes Absolute Auto 0.4 X10*3/uL (0.1-1.2); Monocytes Percent Auto 5.9 % (2-11); Neutrophils Absolute Auto 4.9 x10*3/uL (2.0-8.3); Neutrophils Percent Auto 80.6 % (45-73); Platelet Count 226 X10*3/uL (160-400); Red Blood Count 2.71 X10*6/uL (4.20-5.50); Red Cell Distribution Width 14.1 % (11.0-16.0); White Blood Count 6.1 X10*3/uL (4.8-10.8)
[2022-01-05 21:02] LABS: Alanine Aminotransferase 13 U/L (0-31); Albumin Level 2.6 g/dL (3.5-5.0); Alkaline Phosphatase 97 U/L (39-117); Anion Gap 15 (12-20); Aspartate Amino Transferase 11 U/L (5-31); Bilirubin Total 0.4 mg/dL (0.0-1.0); Blood Urea Nitrogen 45 mg/dL (9-16); Calcium 7.5 mg/dL (8.4-10.2); Carbon Dioxide 18 mmol/L (22-29); Chloride 111 mmol/L (96-108); Creatinine Clr Calc Pharmacy 27.4; Estimated Glomerular Filt Rate 16; Glucose Random 201 mg/dL (60-115); Potassium 4.3 mmol/L (3.3-5.1); Sodium 140 mmol/L (135-145); Total Protein 5.4 g/dL (6.5-8.0)
[2022-01-05 21:07] LABS: Troponin-I High Sensitivity 21.7 ng/L (<3.5-17.0)
--- NOTE | 2022-01-05 23:11 | PC.NURSE ---
ICU bladder scanner is currently in use in [facility], nurse to bring down when she is finished with it.
[2022-01-05 23:56] LABS: Appearance Urine Clear; Color Urine Yellow; Glucose Urine UA 500 mg/dL (Negative); Leukocyte Esterase Urine Negative (Negative); Nitrite Urine Negative (Negative); Specific Gravity - Urine 1.015 (1.005-1.025); UMIC TRIGGER UACC YES; Urine Blood Moderate (2+) (Negative); Urine Ketones Negative (Negative); Urine Protein >=1000 (4+) mg/dL (Neg-Trace)
[2022-01-06 00:01] LABS: Bacteria Urine 4+ (None Seen); Squamous Epithelial Cell Urine 0-2 /HPF (0-2); WBC Urine 0-5 /HPF (0-5)
[2022-01-06 00:07] LABS: Amphetamine Screen Urine Not Detected (Not Detect); Barbiturates, Urine Not Detected (Not Detect); Benzodiazepines Screen Urine Not Detected (Not Detect); Cannabinoid Screen Urine Not Detected (Not Detect); Cocaine Screen Urine Not Detected (Not Detect); Fentanyl, urine Not Detected (Not Detect); Opiate Screen Urine Not Detected (Not Detect); Phencyclidine Screen Urine Not Detected (Not Detect)
[2022-01-06] MEDS: HYDROmorphone HCl 1 MG/ML SYRINGE IVPUSH (00:20)
[2022-01-06] MEDS: Furosemide 40 MG/4 ML VIAL IVPUSH (00:25)
--- NOTE | 2022-01-06 00:44 | PC.NURSE ---
pt medicated per provider order, pt agreeable to transfer, provider notified.
--- NOTE | 2022-01-06 01:23 | PC.NURSE ---
Call out to [facility] patient management @[phone]
--- NOTE | 2022-01-06 01:24 | PC.NURSE ---
Call out to [facility] @[phone] spoke to Rekha to book ALS transport to [facility] ER Rekha will call this Kerrick Kleaner Operator back with an ETA
--- NOTE | 2022-01-06 03:07 | PC.NURSE ---
RN-RN report called into [facility] ED.
== END 2022-01-06 03:09 | disposition short-term general hospital (02) ==
PROVIDERS: Physician Assistant; Emergency Provider Student in an Organized Health Care Education/Training Program; PCP Internal Medicine
DX: R07.9 Chest pain, unspecified (principal); R60.0 Localized edema; E11.22 Type 2 diabetes mellitus with diabetic chronic kidney disease; I13.0 Hypertensive heart and chronic kidney disease with heart failure and stage 1 through stage 4 chronic kidney disease, or unspecified chronic kidney disease; N18.9 Chronic kidney disease, unspecified; I50.9 Heart failure, unspecified; N17.9 Acute kidney failure, unspecified; Z79.4 Long term (current) use of insulin; Z79.899 Other long term (current) drug therapy
CPT/HCPCS: 36415; 51798; 71046; 71250; 73564; 78580; 80048; 80053; 80076; 80307; 81001; 81003; 83690; 83735; 83880; 84484; 85025; 85379; 85610; 86850; 86900; 86901; 93005; 93971; 96374; 96375; 96376; 99285; A9540; J1170; J1200; J1940; J2765

== ENCOUNTER 2022-03-31 17:44 | Inpatient (IN) | payer OTHER, SELFPAY ==
--- NOTE | ~2022-03-31 | US_ITS ---
EXAMINATION: US EXTRACRANIAL CAROTID DUPLEX, BILATERAL CLINICAL INFORMATION: CVA COMPARISON: None TECHNIQUE: Real-time ultrasound and Doppler techniques (integrating B-mode 2-D vascular images, Doppler spectral analysis and color-flow Doppler imaging) were utilized to interrogate the extracranial carotid arteries, the vertebral arteries and proximal subclavian arteries bilaterally. The degree of stenosis is determined by criteria similar to NASCET. FINDINGS: Right Side: 1. There is mild atherosclerotic plaque seen in the bifurcation/proximal ICA region. 2. The common carotid artery PSV proximally is 80 cm/s and distally 80 cm/s. 3. The proximal internal carotid artery velocities are 69 cm/s systolic and 29 cm/s diastolic. 4. The proximal external carotid artery PSV is 76 cm/s. 5. The vertebral artery shows antegrade flow. 6. The subclavian artery waveforms are normal. Left Side: 1. There is mild atherosclerotic plaque seen in the bifurcation/proximal ICA region. 2. The common carotid artery PSV proximally is 85 cm/s and distally 60 cm/s. 3. The proximal internal carotid artery velocities are 88 cm/s systolic and 29 cm/s diastolic. 4. The proximal external carotid artery PSV is 71 cm/s. 5. The vertebral artery shows antegrade flow. 6. The subclavian artery waveforms are normal. US/US carotid duplex BI IMPRESSION: 1. RIGHT: Mild plaque in the right internal carotid artery with velocity corresponding to less than 50% stenosis. 2. LEFT: Mild plaque in the left internal carotid artery with velocity corresponding to less than 50% stenosis.
--- NOTE | ~2022-03-31 | MR_ITS ---
EXAMINATION: MR BRAIN WITHOUT CONTRAST CLINICAL INFORMATION: Stroke, history of type 1 diabetes, chronic kidney disease COMPARISON: CT head 03/31/2022 TECHNIQUE: Motion degraded and prematurely terminated MRI of the brain as patient began vomiting in the scanner. FINDINGS: Motion degraded and incomplete examination. No acute infarct. No acute intracranial hemorrhage or extra-axial fluid collection. FLAIR signal abnormality and patchy intrinsic T1 shortening along the posterior globes corresponding to hyperdensity seen on prior CT suspicious for subretinal hemorrhage. The ventricles and sulci are normal in size and configuration without significant volume loss or hydrocephalus. A few scattered nonspecific T2 hyperintense foci within the subcortical and periventricular white matter, with predilection for the high bilateral superior frontal gyri. There is also patchy T2 hyperintensity within the brainstem. No mass lesion, mass effect, or herniation pattern. . Normal appearance of the midline structures. The orbits are grossly unremarkable. The paranasal sinuses and mastoids are well aerated. Normal marrow signal. MR/MR head/brain wo con IMPRESSION: 1. FLAIR signal abnormality and patchy intrinsic T1 shortening along the posterior globes corresponding to hyperdensity seen on prior CT suspicious for subretinal hemorrhage. Correlation with funduscopic examination again recommended. 2. No acute intracranial abnormality, specifically without evidence of acute infarct or intracranial hemorrhage. 3. Nonspecific white matter disease in the supratentorial brain parenchyma and brainstem greater than expected for patient age likely reflecting sequelae of chronic microangiopathy in the setting of known vascular risk factors.
--- NOTE | ~2022-03-31 | CT_ITS ---
EXAMINATION: CT HEAD WITHOUT CONTRAST CLINICAL INFORMATION: Headache. Left upper extremity weakness. COMPARISON: CT head 10/20/2018. TECHNIQUE: Print Line Supervisor images were obtained. CT imaging of the head was performed without contrast. Data was reformatted into multiplanar images at the acquisition workstation. This CT examination was performed using dose optimization techniques as appropriate, including one or more of the following: Automated exposure control, iterative reconstruction, and adjustment of technique factors (mA and/or kVp) according to patient size (this includes techniques or standardized protocols for targeted exams where dose is matched to indication/reason for exam). Fleischner Society criteria for the followup of incidental pulmonary nodules was implemented if appropriate. DLP: 820 mGy-cm. FINDINGS: There is no acute intracranial hemorrhage or abnormal extra-axial collection. No intracranial mass effect or midline shift. Lateral and third ventricles are normal. No hydrocephalus. Ventura-white matter differentiation is preserved and there is no evidence of acute territorial infarct. The calvarium and skull base are intact. Mastoid air cells and middle ear cavities are well aerated. No active paranasal sinus disease. Of note there is some subtle hyperattenuation along the posterior globe contours at rates as the possibility of a retinal hemorrhage or detachment. These findings are new when compared to CT imaging from 10/20/2018. CT/CT head for stroke IMPRESSION: There is some subtle hyperattenuation along the posterior globe contours at rates as the possibility of a retinal hemorrhage or detachment. These findings are new when compared to CT imaging from 10/20/2018. Correlation with funduscopic examination is therefore recommended. Otherwise unremarkable examination in that there is no evidence of acute territorial infarct or hemorrhage. This critical result was discussed with Dr. Farfan at 6:09 PM on 03/31/2022 and it was ascertained that the content and urgency of the report was understood at the time of direct communication.
--- NOTE | 2022-03-31 17:48 | ECG_ITS ---
Test Reason : weakness Blood Pressure : / mmHG Vent. Rate : 098 BPM Atrial Rate : 098 BPM P-R Int : 154 ms QRS Dur : 140 ms QT Int : 396 ms P-R-T Axes : 000 195 090 degrees QTc Int : 505 ms Normal sinus rhythm Right bundle branch block Abnormal ECG When compared with ECG of 05-JAN-2022 14:38, Questionable change in QRS axis Referred By: Mazin Rubalcava Electronically Signed By:Vinny Vera
[2022-03-31 18:01] VITALS: BP 142/108; BP 174/95; PULSE 104; PULSE 99; RESP 16; TEMP 36.8; O2SAT 98; O2SAT 99; BMI 29.5
[2022-03-31 18:03] LABS: Glucose, Whole Blood 132 mg/dL (60-115)
--- OUTSIDE RECORDS SUMMARY | 2022-03-31 18:19 | XMS_ITS | Continuity of Care Document ---
:1990 Author Organization [facility] Address [address] [place] [id number]- Care Team Providers Name Role Phone Chirag CARLSON, Abdon Primary Care Physician [facility] Date[facility]s): [facility] - 05/26/[address] [id number] Encounter Diagnosis Chest pain (Final) - 05/16/21 Leg pain (Final) - 05/16/21 Hyperglycemia (Final) - 05/16/21 Discharge Disposition: A-D/C Home Attending Physician: Magali Oliver MD Admitting Physician: Kurt Bess MD Referring Physician: Not on Staff, Referring MD Allergies, Adverse Reactions, Alerts Substance Reaction Severity Status vancomycin1, 2 Tightness in throat Active Zosyn angioedema Severe Active morphine Active 1Tolerates again Per chart: pt tolerated vanco on 05/18/21 Immunizations Given and Recorded Vaccine Date Status Refusal Reason SARS-CoV-2 (COVID-19) mRNA-1273 vaccine 07/16/20 Recorded SARS-CoV-2 (COVID-19) mRNA-1273 vaccine 06/18/20 Recorded tetanus/diphtheria/pertussis, acel(Tdap)1 06/27/12 Given influenza virus vaccine, inactivated 12/06/11 Given Hepatitis B Vaccine (old term)2 10/21/02 Given Hepatitis B Vaccine (old term) 04/18/02 Given Hepatitis B Vaccine (old term) 03/13/02 Given tetanus-diphtheria toxoids (Td)3 03/13/02 Given Measles/Mumps/Rubella Virus Vaccine 07/15/95 Given Measles/Mumps/Rubella Virus Vaccine 03/25/89 Given Poliovirus Vaccine, Inactivated4 08/08/92 Given Poliovirus Vaccine, Inactivated5 01/24/92 Given Poliovirus Vaccine, Inactivated 07/05/89 Given Poliovirus Vaccine, Inactivated 88 Given Poliovirus Vaccine, Inactivated 88 Given Diphth/Pertussis, Whl Cell/Tet(oldterm) 08/08/92 Given Diphth/Pertussis, Whl Cell/Tet(oldterm) 01/24/92 Given Diphth/Pertussis, Whl Cell/Tet(oldterm) 07/05/89 Given Diphth/Pertussis, Whl Cell/Tet(oldterm) 88 Given Diphth/Pertussis, Whl Cell/Tet(oldterm) 88 Given Not Given Vaccine Date Status Refusal Reason influenza virus vaccine, inactivated 03/05/21 Not Given Patient Refuses 1Admin Note: VIS 03/21/11 (given)2Admin Note: hx varicella '943Admin Note: TD4 Admin Note: unknown exact [id number] Note: unknown exact date Medications acetaminophen 325 mg oral tablet 975 mg, By Mouth, 3 times a day, Temperature Greater than 100.5, Refills 0, Maintenance, 05/26/21 13:51:00 EDT, Partial fill upon patient request if the prescription is for a schedule II opioid drug. Start Date: 05/26/21 Status: OrderedamLODIPine 10 mg oral tablet 10 mg, 1, tablet, By Mouth, Daily, # 30 tablet, Refills 5, Tot. Refills 5, Maintenance, 03/31/21 14:26:00 EST, Route to Pharmacy Electronically, [facility]/pharmacy #[id number], Partial fill upon patient request ifthe prescription is for a schedule II opioid drug... Start Date: 03/31/21 Status: Orderedatorvastatin 40 mg oral tablet 1 tablet = 40 mg, By Mouth, Daily at bedtime, Follow-up with your primary care doctor for further refills., # 30 tablet, 1 Refills, Maintenance, 04/26/21 14:51:00 EST, Tablet, [facility],Partial fill upon patient request if the prescrip... Start Date: 04/26/21 Status: Orderedcyclobenzaprine 10 mg oral tablet 10 mg, 1, tablet, By Mouth, 3 times a day, # 15 tablet, Refills 0, Tot. Refills 0, Acute 05/27/21 13:51:00 EDT, 05/26/21 13:51:00 EDT, Route to Pharmacy Electronically, [facility], Partial fill upon patient request if the prescription is... Start Date: 05/26/21 Stop Date: 05/27/21 Status: OrderedDilaudid 2 mg oral tablet 1 tablet = 2 mg, By Mouth, Every 6 hours, PRN Pain , Severe, # 10 tablet, 0 Refills, Acute 05/27/21 13:51:00 EDT, 05/26/21 13:51:00 EDT, Tablet, [facility], Partial fill upon patient request if the prescription is for a schedule II opioi... Start Date: 05/26/21 Stop Date: 05/27/21 Status: OrderedDilaudid 2 mg oral tablet 2 mg, Tablet, By Mouth, Every 6 hours, PRN for Pain , Severe, ALEKS, 05/25/21 10:47:00 EDT Start Date: 05/25/21 Stop Date: 05/27/21 Status: Discontinuedduloxetine 30 mg oral enteric coated capsule 1 capsule = 30 mg, By Mouth, 2 times a day Start Date: 04/23/21 Status: Orderedferrous sulfate 325 mg oral enteric coated tablet 325 mg, By Mouth, Every other day, Refills 0, Maintenance, 04/26/21 14:51:00 EST, Partial fill upon patient request if the prescription is for a schedule II opioid drug. Start Date: 04/26/21 Status: OrderedFlexeril 10 mg oral tablet 10 mg, Tablet, By Mouth, 05/26/21 15:00:00 EDT Start Date: 05/26/21 Stop Date: 05/26/21 Status: CompletedJardiance 10 mg oral tablet 1 tablet = 10 mg, By Mouth, Daily in AM, Take 1 tablet daily in the morning. E11.65. 90-day supply.,# 90 tablet, 3 Refills, Maintenance, 11/17/20 10:19:00 EDT, Tablet, [facility]/pharmacy #[id number], Partial fillupon patient request if the prescription is for a... Start Date: 11/17/20 Status: OrderedLasix 20 mg oral tablet 20 mg, 1, tablet, By Mouth, Daily, Follow-up with your primary care doctor for further refills., # 30 tablet, Refills 0, Tot. Refills 0, Maintenance, 04/26/21 14:52:00 EST, Route to Pharmacy Electronically, [facility], Partial fill upon... Start Date: 04/26/21 Status: OrderedLevemir FlexTouch 100 units/mL subcutaneous solution INJECT 43 UNITS SUBCUTANEOUSLY ONCE DAILY Start Date: 04/23/21 Status: Orderedlidocaine 5% topical film 1 patch, Topically, Daily, PRN Pain , Mild, remove after 12 hours, # 13 each, 0 Refills, Maintenance, 04/19/21 11:26:00 EST, Film, [facility]/pharmacy #[id number], Partial fill upon patient request if the prescription is for a schedule II opioid drug., 1 patch Top... Start Date: 04/19/21 Status: Orderedmetoprolol 25 mg oral tablet 25 mg, 1, tablet, By Mouth, 2 times a day, Follow-up with your primary care doctor for further refills., # 60 tablet, Refills 1, Tot. Refills 1, Maintenance, 04/26/21 14:52:00 EST, Route to Pharmacy Electronically, [facility], Partial fi... Start Date: 04/26/21 Status: Orderednitroglycerin 0.4 mg sublingual tablet 1 tablet = 0.4 mg, Sublingual, Every 5 minutes, PRN as needed for chest pain, not to exceed 3 doses/15 min--if pain persists, seek medical attention, # 25 tablet, 0 Refills, Maintenance, 03/31/21 14:26:00 EST, Tablet, [facility]/pharmacy #[id number], Partial fill... Start Date: 03/31/21 Status: OrderedNovoLOG FlexPen 100 units/mL injectable solution INJECT 11-21 UNITS SUBCUTANEOUSLY 3 TIMES DAILY BEFORE MEALS. 90-DAY SUPPLY. Start Date: 04/23/21 Status: Ordered Problem List Condition Effective Dates Status Health Status Informant Asthma(Confirmed) Active Blindness of right eye(Confirmed) Active Blood group A Rh(D) Active positive(Confirmed) Chest pain(Confirmed) Active IUFD at 20 weeks or more of Active gestation(Confirmed) Depression(Confirmed) Active Diabetes mellitus type 2(Confirmed)1 Active Hypertension(Confirmed) Active Obese class I(Confirmed) Active Care Coordination [facility], Hakan Angel, CC (Confirmed) delivery(Confirmed) Active delivery(Confirmed) Active 1Not seem at [facility] since 08/12/2016. Multiple no show in our center. She is seen by other provider Dr Matt Gutierrez by pharmacy records. Results Orders for Microbiology Reports Name Date AFB Culture w/ AFB Smear, Nonrespiratory (ACID FAST CU LT,NON-RESP) 05/19/21 Anaerobic Culture (ANAEROBIC CULTURE) 05/19/21 Fungal Culture, Nonrespiratory (FUNGAL CULT,NON-RESPIR ATORY) 05/19/21 Tissue Culture w/ Gram Smear (TISSUE/BIOPSY CULT.) 04/27 06/17 Blood Culture 05/16/21 Blood Culture #2 05/16/21 Microbiology Reports TEST:Anaerobic Culture STATUS:Auth (Verified) BODY SITE: SOURCE:WOUND COLLECTED DATE/TIME:05/19/21 11:30 AMAnaerobic Culture SPECIMEN DESCRIPTION : WOUND BILATERAL FOOT SPECIAL REQUESTS : NONE CULTURE : NO ANAEROBES ISOLATED REPORT STATUS : FINAL 05/21/2021TEST:Tissue/Biopsy Culture STATUS:Auth (Verified) BODY SITE: SOURCE:WOUND COLLECTED DATE/TIME:05/19/21 11:30 AMTissue/Biopsy Culture SPECIMEN DESCRIPTION : WOUND BILATERAL FOOT SPECIAL REQUESTS : NONE GRAM STAIN : 2+ GRAM POSITIVE COCCI NO WBC'S SEEN CULTURE : 2+ GROUP B BETA HEMOLYTIC STREPTOCOCCI ISOLATED. SUSCEPTIBILITY TESTING NOT ROUTINELY PERFORMED ON THIS ISOLATE. 2+ STAPH. SPECIES, NOT STAPH. AUREUS SUSCEPTIBILITY TESTING NOT ROUTINELY PERFORMED ON THIS ISOLATE. NOTE, THIS ISOLATE WILL BE IDENTIFIED PER REQUEST OF DR. DAHL. REPORT STATUS : FINAL 05/22/2021 ORGANISM 2+ STAPH. SPECIES, NOT STAPH. AUREUS SUSCEPTIBILITY TESTING NOT ROUTINELY PERFORMED ON THIS ISOLATE. NOTE, THIS ISOLATE WILL BE IDENTIFIED PER REQUEST OF DR. DAHL. METHOD MIN. INHIB. CONC. (MCG/ML) CIPROFLOXACIN SUSCEPTIBLE CLINDAMYCIN SUSCEPTIBLE ERYTHROMYCIN RESISTANT INDUCIBLE CLINDAMYCI NEGATIVE LEVOFLOXACIN SUSCEPTIBLE RIFAMPIN SUSCEPTIBLE RIFAMPIN RIFAMPIN SHOULD NOT BE USED ALONE FOR ANTIMICROBIAL RIFAMPIN THERAPY. TRIMETH/SULFAMETHOX RESISTANT VANCOMYCIN SUSCEPTIBLETEST:Fungal Culture, Non-Respiratory STATUS:Unauthenticated BODY SITE: SOURCE:WOUND COLLECTED DATE/TIME:05/19/21 11:30 AMFungal Culture, Non-Respiratory SPECIMEN DESCRIPTION : WOUND BILATERAL FOOT SPECIAL REQUESTS : NONE DIRECT EXAM : NO FUNGAL ELEMENTS OBSERVED CULTURE : NO FUNGI ISOLATED AFTER 7 DAYS REPORT STATUS : PRELIMINARY REPORT TEST:AFB Culture w/AFB Smear, Non-Respiratory STATUS:Unauthenticated BODY SITE: SOURCE:WOUND COLLECTED DATE/TIME:05/19/21 11:30 AMAFB Culture w/AFB Smear, Non-Respiratory SPECIMEN DESCRIPTION : WOUND BILATERAL FOOT SPECIAL REQUESTS : NONE DIRECT EXAM : NO ACID FAST BACILLI SEEN ON DIRECT SMEAR, TEST PERFORMED AT [facility] CULTURE : SPECIMEN SENT TO [facility], [place], [place] REPORT STATUS : PRELIMINARY REPORT TEST:Blood Culture STATUS:Auth (Verified) BODY SITE: SOURCE:Blood COLLECTED DATE/TIME:05/16/21 3:05 AMBlood Culture SPECIMEN DESCRIPTION : BLOOD R WRIST SPECIAL REQUESTS : NONE CULTURE : NO GROWTH 5 DAYS. REPORT STATUS : FINAL 05/21/2021TEST:Blood Culture, Second Order STATUS:Auth (Verified) BODY SITE: SOURCE:Blood COLLECTED DATE/TIME:05/16/21 3:05 AMBlood Culture, Second Order SPECIMEN DESCRIPTION : BLOOD NO SITE SPECIAL REQUESTS : NONE CULTURE : NO GROWTH 5 DAYS. REPORT STATUS : FINAL 2Radiology Reports Exam Date Time Procedure Performing Provider Status 05/17/21 11:01 AM Foot Min 3 Views Right Nolvia Platt; Auth (V erified) Notes:(Foot Min 3 Views Right) Reason For Exam: PainRESULT: Foot Min 3 Views Right Right foot 3 views dated May 17, 2021. Comparison films are from April 16 and March 06, 2021. HISTORY: Pain. Infection. FINDINGS: There are transmetatarsal amputations across all 5 digits. The second, third, fourth and fifth amputation sites are smoothly marginated. The first metatarsal amputation site is irregular withevidence of some bony erosion. There are foci of air demonstrated within the soft tissues in the distal aspect of the foot. IMPRESSION: Foci of air in the soft tissues in the distal aspect of the transmetatarsal amputation. Some irregularity of the distal aspect of the first metatarsal is suggestive of osteomyelitis. Examination [id number]. Thank you for allowing me to participate in the care of this patient. WSN: [id number] Ordering Physician: Lynsey Kaye Dictated By: Kareem Ackerman MD Dictated Date/Time: 05/17/21 1:27 pm Reviewed By: Kareem Ackerman MD Signed By: Kareem Ackerman MD Signed Date/Time: 05/17/21 1:27 pm Transcribed By: ALEXIS Transcribed Date/Time: 05/17/21 1:26 pm Exam Date Time Procedure Performing Provider Status 05/16/21 2:57 AM Chest Portable Mee Saldana; Auth (Verified) Notes:(Chest Portable) Reason For Exam: CoughRESULT: Chest Portable Chest Portable Hx of Present Illness: pt presents with cp described as sharp L sided radiates to back and L shoulerand arm, exacerbated with breathign, pt endorsing nausea, and concerned about chronic pain in R foot, hx of diabetes, and multiple toe amputations; Reason: Cough; Clinical Question(s): Pneumonia COMPARISON: Prior chest radiographs, most recently April 23, 2021. FINDINGS: LINES AND TUBES: None. LUNGS AND PLEURA: Mildly congested appearing vasculature without saul pulmonary edema. No consolidation. No pleural effusion. No pneumothorax. HEART, MEDIASTINUM AND EVERT: Heart is normal in size. Normal upper mediastinal and hilar contour. BONES AND SOFT TISSUES: No acute abnormality. IMPRESSION: Mildly congested appearing vascular joint without saul pulmonary edema. WSN: [id number] Ordering Physician: Ruba Martel Dictated By: Jason Heaton MD Dictated Date/Time: 05/16/21 8:41 am Reviewed By: Jason Heaton MD Signed By: Jason Heaton MD Signed Date/Time: 05/16/21 8:41 am Transcribed By: ALEXIS Transcribed Date/Time: 05/16/21 8:40 am Vital Signs Most recent to oldest 1 2 3 [Reference Range]: Height 163 cm 163 cm 163 cm (05/26/21 3:35 PM) (05/26/21 11:17 AM) (05/26/21 7: 47 AM) Weight 90.0 kg 90.5 kg 90.5 kg (05/21/21 2:09 AM) (05/19/21 10:14 AM) (05/16/21 9: 32 AM) Oxygen Saturation [94-100 %] 98 % 98 % 99 % (05/26/21 3:35 PM) (05/26/21 11:17 AM) (05/26/21 7: 47 AM) Pulse Rate [55-90 bpm] 78 bpm 79 bpm 84 bpm (05/26/21 3:35 PM) (05/26/21 11:17 AM) (05/26/21 7: 47 AM) Body Mass Index [18.5-24.99] 33.87 34.06 34. 06 *>HHI* *>HHI* *>HHI* (05/21/21 2:09 AM) (05/19/21 10:14 AM) (05/16/21 9: 32 AM) Blood Pressure [90-138/55-84 118/69 mm Hg 118/69 mm Hg 141 /89 mm Hg mm Hg] (05/26/21 3:35 PM) (05/26/21 11:17 AM) *H* (05/26/21 7:47 AM ) Respiratory Rate [16-30 17 br/min 18 br/min 18 br/mi n br/min] (05/26/21 3:35 PM) (05/26/21 1:59 PM) (05/26/21 1:5 9 PM) Temperature [96.8-100.4 98 DegF 98 DegF 98.4 Deg F DegF] (05/26/21 3:35 PM) (05/26/21 11:17 AM) (05/26/21 7: 47 AM) Liters per Minute 4 L/min 2 L/min 2 L/min (05/19/21 11:45 AM) (05/17/21 4:34 AM) (05/17/21 12 :09 AM) Mode of Delivery (Oxygen) Room air Room air Room a ir (05/26/21 3:35 PM) (05/26/21 11:17 AM) (05/26/21 7: 47 AM) Blood pressure sites Arm, right Arm, right Arm, right (05/26/21 3:35 PM) (05/26/21 11:17 AM) (05/26/21 7: 47 AM) Temperature Route Oral Oral Oral (05/26/21 3:35 PM) (05/26/21 11:17 AM) (05/26/21 7: 47 AM) Dry Weight 90.5 kg (05/16/21 9:32 AM) Weight Obtained Via Bed scale (05/21/21 2:09 AM) Social History Social History Type Response Smoking Status Never (less than 100 in life time) entered on: 04/23/21 Sex
--- OUTSIDE RECORDS SUMMARY | 2022-03-31 18:19 | XMS_ITS | Continuity of Care Document ---
:1990 Author Organization [facility] Address [address] [place] [address]- Care Team Providers Name Role Phone Abdon Beard MD Primary Care Physician [facility] 04[facility]21 - 05/06/21 [facility] [address] [place] [address]- Attending Physician: Not on Staff, Attending MD Allergies, Adverse Reactions, Alerts Substance Reaction Severity Status vancomycin Tightness in throat Active morphine Active Zosyn angioedema Severe Active Immunizations Given and Recorded Vaccine Date Status [...] '943Admin Note: TD4 Admin Note: unknown exact [id number] Note: unknown exact date Medications amLODIPine 10 mg oral tablet 10 mg, 1, tablet, By Mouth, Daily, # 30 tablet, Refills 5, Tot. Refills 5, Maintenance, 03/31/21 14:26:00 EST, Route to Pharmacy Electronically, [facility]/pharmacy #[id number], Partial fill upon patient request ifthe prescription is for a schedule II opioid drug... Start Date: 03/31/21 Status: Orderedatorvastatin 40 mg oral tablet 1 tablet = 40 mg, By Mouth, Daily at bedtime, Follow-up with your primary care doctor for further refills., # 30 tablet, 1 Refills, Maintenance, 04/26/21 14:51:00 EST, Tablet, [facility],Partial fill upon patient request if the prescrip... Start Date: 04/26/21 Status: Ordereddoxycycline monohydrate 100 mg oral capsule = 100 mg, By Mouth, Daily at bedtime, Take with fluids. May take with food to minimize abdominal discomfort. Take at bedtime or 6 hours after iron tablet., # 30 each, 0 Refills, Maintenance, 04/27/21 7:07:00 EST, Capsule, [facility], Par... Start Date: 04/27/21 Status: Orderedduloxetine 30 mg oral enteric coated capsule 1 capsule = 30 mg, By Mouth, 2 times a day Start Date: 04/23/21 Status: Orderedferrous sulfate 325 mg oral enteric coated tablet 325 mg, By Mouth, Every other day, Refills 0, Maintenance, 04/26/21 14:51:00 EST, Partial fill upon patient request if the prescription is for a schedule II opioid drug. Start Date: 04/26/21 Status: OrderedJardiance 10 mg oral tablet 1 tablet = 10 mg, By Mouth, Daily in AM, Take 1 tablet daily in the morning. E11.65. 90-day supply.,# 90 tablet, 3 Refills, Maintenance, 11/17/20 10:19:00 EDT, Tablet, [facility]/pharmacy #[id number], Partial fillupon patient request if the prescription is for a... Start Date: 11/17/20 Status: OrderedLasix 20 mg oral tablet 20 mg, 1, tablet, By Mouth, Daily, Follow-up with your primary care doctor for further refills., # 30 tablet, Refills 0, Tot. Refills 0, Maintenance, 04/26/21 14:52:00 EST, Route to Pharmacy Electronically, [facility], Partial fill upon... Start Date: 04/26/21 Status: OrderedLevemir FlexTouch 100 units/mL subcutaneous solution INJECT 43 UNITS SUBCUTANEOUSLY ONCE DAILY Start Date: 04/23/21 Status: Orderedlidocaine 5% topical film 1 patch, Topically, Daily, PRN Pain , Mild, remove after 12 hours, # 13 each, 0 Refills, Maintenance, 04/19/21 11:26:00 EST, Film, [facility]/pharmacy #[id number], Partial fill upon patient request if the prescription is for a schedule II opioid drug., 1 patch Top... Start Date: 04/19/21 Status: Orderedmetoprolol 25 mg oral tablet 25 mg, 1, tablet, By Mouth, 2 times a day, Follow-up with your primary care doctor for further refills., # 60 tablet, Refills 1, Tot. Refills 1, Maintenance, 04/26/21 14:52:00 EST, Route to Pharmacy Electronically, [facility], Partial fi... Start Date: 04/26/21 Status: Orderednitroglycerin 0.4 mg sublingual tablet 1 tablet = 0.4 mg, Sublingual, Every 5 minutes, PRN as needed for chest pain, not to exceed 3 doses/15 min--if pain persists, seek medical attention, # 25 tablet, 0 Refills, Maintenance, 03/31/21 14:26:00 EST, Tablet, [facility]/pharmacy #[id number], Partial fill... Start Date: 03/31/21 Status: OrderedNovoLOG FlexPen 100 units/mL injectable solution INJECT 11-21 UNITS SUBCUTANEOUSLY 3 TIMES DAILY BEFORE MEALS. 90-DAY SUPPLY. Start Date: 04/23/21 Status: Ordered Problem List Condition Effective Dates Status Health Status Informant Asthma(Confirmed) Active Blindness of right eye(Confirmed) Active Blood group A Rh(D) Active positive(Confirmed) IUFD at 20 weeks or more of Active gestation(Confirmed) Depression(Confirmed) Active Diabetes mellitus type 2(Confirmed)1 Active Hypertension(Confirmed) Active Care Coordination [facility], Hakan Active Jeanne, CC (Confirmed) delivery(Confirmed) Active delivery(Confirmed) Active 1Not seem at [facility] since 08/12/2016. Multiple no show in our center. She is seen by other provider Dr Matt Gutierrez by pharmacy records. Social History Social History Type Response Smoking Status Never (less than 100 in life time) entered on: 04/23/21 Sex
--- OUTSIDE RECORDS SUMMARY | 2022-03-31 18:19 | XMS_ITS | Continuity of Care Document ---
:1990 Author Organization [facility] ic Address [address] [place] [id number]- Care Team Providers Name Role Phone Abdon Beard MD Primary Care Physician [facility]counter [facility] Date(s): 07/20/21 - 08/19/[address] [id number] Allergies, Adverse Reactions, Alerts Substance Reaction Severity Status vancomycin1, 2 Tightness in throat Active Zosyn3 angioedema Severe Active morphine Active 1Tolerates again Per chart: pt tolerated vanco on Tolerates cefazolin Immunizations Given and Recorded Vaccine Date Status Refusal Reason SARS-CoV-2 (COVID-19) mRNA-1273 vaccine 07/16/20 Recorded SARS-CoV-2 (COVID-19) mRNA-1273 vaccine 06/18/20 Recorded influenza virus vaccine, inactivated 09/30/16 Recorded influenza virus vaccine, inactivated 12/06/11 Given tetanus/diphtheria/pertussis, acel(Tdap)1 06/27/12 Given tetanus/diphtheria/pertussis, acel(Tdap) 06/24/12 Recorde d Hepatitis B Vaccine (old term)2 10/21/02 Given [...] '943Admin Note: TD4 Admin Note: unknown exact [id number] Note: unknown exact date Medications acetaminophen 325 mg oral tablet 975 mg, By Mouth, 3 times a day, Temperature Greater than 100.5, Refills 0, Maintenance, 05/26/21 13:51:00 EDT, Partial fill upon patient request if the prescription is for a schedule II opioid drug. Start Date: 05/26/21 Status: OrderedAlcohol Pads See Instructions, # 600 each, Refills 2, Tot. Refills 2, Maintenance, use as directed for Type 1 Diabetes Mellitus, 06/18/21 9:50:00 EDT, Supply, 167.6, cm, 06/18/21 8:09:00 EDT, Height, 75.8, kg, 06/09/21 11:38:00 EDT, Dry Weight Start Date: 06/18/21 Stop Date: 03/15/22 Status: OrderedamLODIPine 10 mg oral tablet 10 mg, 1, tablet, By Mouth, Daily, # 30 tablet, Refills 5, Tot. Refills 5, Maintenance, 06/18/21 9:46:00 EDT, Route to Pharmacy Electronically, [facility], Partial fill upon patient request if the prescription is for a schedule II opioid... Start Date: 06/18/21 Status: Orderedatorvastatin 40 mg oral tablet 1 tablet = 40 mg, By Mouth, Daily at bedtime, Follow-up with your primary care doctor for further refills., # 30 tablet, 1 Refills, Maintenance, 06/18/21 9:46:00 EDT, Tablet, [facility], Partial fill upon patient request if the prescript... Start Date: 06/18/21 Status: Orderedduloxetine 30 mg oral enteric coated capsule 1 capsule = 30 mg, By Mouth, 2 times a day, # 60 capsule, 0 Refills, Maintenance, 06/18/21 9:46:00 EDT, Capsule, [facility], Partial fill upon patient request if the prescription is for aschedule II opioid drug., 167.6, cm, 06/18/21 8:0... Start Date: 06/18/21 Status: Orderedferrous sulfate 325 mg oral enteric coated tablet 325 mg, By Mouth, Every other day, Refills 0, Maintenance, 04/26/21 14:51:00 EST, Partial fill upon patient request if the prescription is for a schedule II opioid drug. Start Date: 04/26/21 Status: OrderedFreestyle Lancets See Instructions, # 600 each, Refills 2, Tot. Refills 2, Maintenance, use as directed for Type 2 Diabetes Mellitus, 06/18/21 9:50:00 EDT, Supply, 167.6, cm, 06/18/21 8:09:00 EDT, Height, 75.8, kg, 06/09/21 11:38:00 EDT, Dry Weight Start Date: 06/18/21 Stop Date: 03/15/22 Status: OrderedFREESTYLE LITE TEST STRIP USE 1 TO TEST 6 TIMES EVERY DAY FOR DIABETES Start Date: 06/09/21 Status: OrderedFreestyle Test Strips See Instructions, # 600 each, Refills 2, Tot. Refills 2, Maintenance, use as directed for Type 1 Diabetes Mellitus, 06/18/21 9:50:00 EDT, Supply, 167.6, cm, 06/18/21 8:09:00 EDT, Height, 75.8, kg, 06/09/21 11:38:00 EDT, Dry Weight Start Date: 06/18/21 Stop Date: 03/15/22 Status: Orderedglucometer glucometer, See Instructions, # 1 each, Refills 0, Tot. Refills 0, Maintenance, glucometer, :49:00 EDT, Supply, 167.6, cm, 06/18/21 8:09:00 EDT, Height, 75.8, kg, 06/09/21 11:38:00 EDT, Dry Weight Start Date: 06/18/21 Status: OrderedJardiance 10 mg oral tablet 1 tablet = 10 mg, By Mouth, Daily in AM, Take 1 tablet daily in the morning. E11.65. 90-day supply.,# 90 tablet, 3 Refills, Maintenance, 11/17/20 10:19:00 EDT, Tablet, [facility]/pharmacy #[id number], Partial fillupon patient request if the prescription is for a... Start Date: 11/17/20 Status: OrderedLasix 20 mg oral tablet 20 mg, 1, tablet, By Mouth, Every other day, Follow-up with your primary care doctor for further refills., # 30 tablet, Refills 0, Tot. Refills 0, Maintenance, 07/14/21 16:27:00 EDT, Route to Pharmacy Electronically, [facility]/pharmacy #[id number], Partial fill u... Start Date: 07/14/21 Status: OrderedLevemir FlexTouch 100 units/mL subcutaneous solution = 8 units, Subcutaneous Injection, Daily at bedtime, # 10 mL, 0 Refills, Maintenance, 06/19/21 9:20:00 EDT, Injection, [facility], Partial fill upon patient request if the prescription isfor a schedule II opioid drug., 167.6, cm, ... Start Date: 06/19/21 Stop Date: 07/19/21 Status: Orderedlidocaine 5% topical film 1 patch, Topically, Daily, PRN Pain , Mild, remove after 12 hours, # 13 each, 0 Refills, Maintenance, 04/19/21 11:26:00 EST, Film, [facility]/pharmacy #[id number], Partial fill upon patient request if the prescription is for a schedule II opioid drug., 1 patch Top... Start Date: 04/19/21 Status: Orderedlisinopril 5 mg oral tablet 5 mg, 1, tablet, By Mouth, Daily, # 30 tablet, Refills 0, Tot. Refills 0, Maintenance, 07/14/21 16:28:00 EDT, Route to Pharmacy Electronically, [facility]/pharmacy #[id number], Partial fill upon patient request if the prescription is for a schedule II opioid drug.... Start Date: 07/14/21 Status: OrderedMetoprolol Tartrate 25 mg oral tablet 1.5 tablet = 37.5 mg, By Mouth, 2 times a day, 0 Refills, Maintenance, 07/11/21 13:58:00 EDT, Partial fill upon patient request if the prescription is for a schedule II opioid drug. Start Date: 07/11/21 Status: Orderednitroglycerin 0.4 mg sublingual tablet 1 tablet = 0.4 mg, Sublingual, Every 5 minutes, PRN as needed for chest pain, not to exceed 3 doses/15 min--if pain persists, seek medical attention, # 25 tablet, 0 Refills, Maintenance, 03/31/21 14:26:00 EST, Tablet, [facility]/pharmacy #[id number], Partial fill... Start Date: 03/31/21 Status: OrderedoxyCODONE 5 mg oral tablet 5 mg, 1, tablet, By Mouth, Every 6 hours, PRN, Refills 0, Tot. Refills 0, Pain , Severe Start Date: 06/09/21 Status: OrderedPen [place], 30 G x 8 mm BD Ultra Fine II See Instructions, # 300 each, Refills 2, Tot. Refills 2, Maintenance, use as directed for Type 2 Diabetes Mellitus, 06/18/21 9:51:00 EDT, Supply, 167.6, cm, 06/18/21 8:09:00 EDT, Height, 75.8, kg, 06/09/21 11:38:00 EDT, Dry Weight Start Date: 06/18/21 Stop Date: 03/15/22 Status: OrderedPrenatal Multivitamins with Folic Acid 1.4 mg oral tablet, chewable 1 tablet, Chew, Daily, # 90 tablet, 0 Refills, Maintenance, 07/24/21 14:28:00 EDT, Chew Tablet, [facility]/pharmacy #[id number], Partial fill upon patient request if the prescription is for a schedule II opioid drug., 1 tablet Chew Daily, 168, cm, 07/15/21 8:15:00... Start Date: 07/24/21 Status: OrderedProAir HFA 90 mcg/inh inhalation aerosol See Instructions, PRN Wheezing/Shortness of Breath, Inhale 2 puff every 4 to 6 hours as needed, 0 Refills, Maintenance, 07/11/21 13:59:00 EDT, Partial fill upon patient request if the prescription is for a schedule II opioid drug. Start Date: 07/11/21 Status: OrderedSenexon-S 50 mg-8.6 mg oral tablet 2 tablet, By Mouth, 2 times a day, PRN Constipation, 0 Refills, Maintenance, 07/11/21 14:00:00 EDT, Partial fill upon patient request if the prescription is for a schedule II opioid drug. Start Date: 07/11/21 Status: Ordered Problem List Condition Effective Dates Status Health Status Informant Asthma(Confirmed) Active Blindness of right eye(Confirmed) Active Blood group A Rh(D) Active positive(Confirmed) Chest pain(Confirmed) Active IUFD at 20 weeks or more of Active gestation(Confirmed) Depression(Confirmed) Active Diabetes mellitus type 2(Confirmed)1 Active Hypertension(Confirmed) Active Care Coordination [facility], [place] Active Angel, CC (Confirmed) delivery(Confirmed) Active delivery(Confirmed) Active 1Not seem at [facility] since 08/12/2016. Multiple no show in our center. She is seen by other provider Dr Matt Gutierrez by pharmacy records. Social History Social History Type Response Smoking Status Never (less than 100 in life time) entered on: 04/23/21 Sex
--- OUTSIDE RECORDS SUMMARY | 2022-03-31 18:19 | XMS_ITS | Continuity of Care Document ---
:1990 Author Organization [facility] Address [address] [place] [address]- Care Team Providers Name Role Phone Chirag CARLSON, Abdon Primary Care Physician [facility] Date[facility]s): 08/02/21 - 09/01/21 [facility] [address] [place] [id number] Attending Physician: Michael Marquez Admitting Physician: Admtr, Michael Referring Physician: Admtr, [id number] Allergies, Adverse Reactions, Alerts Substance Reaction Severity Status vancomycin1, 2 Tightness in throat Active morphine Itching Active Zosyn3 angioedema Severe Active 1Tolerates again Per chart: pt tolerated [...] '943Admin Note: TD4 Admin Note: unknown exact [id number] Note: unknown exact date Medications acetaminophen 325 [...] mg, 1, tablet, By Mouth, Daily, # 90 tablet, Refills 3, Tot. Refills 3, Maintenance, 08/24/21 11:43:00 EDT, Route to Pharmacy Electronically, [facility]/pharmacy #[id number], Partial fill upon patient request ifthe prescription is for a schedule II opioid drug... Start Date: 08/24/21 Status: OrderedBlood Pressure Monitor See Instructions, # 1 kit, Maintenance, To test blood pressures 2 x day. Severe HTN in , 08/31/21 12:03:00 EDT, Supply Start Date: 08/31/21 Status: Orderedduloxetine 30 mg oral enteric coated capsule 1 capsule = 30 mg, By Mouth, 2 times a day, # 180 capsule, 3 Refills, Maintenance, 08/24/21 11:44:00EDT, Capsule, [id number], Partial fill upon patient request if the prescription is for a schedule II opioid drug., 168, cm, 08/24/21 11:41:00... Start Date: 08/24/21 Status: OrderedFreestyle Lancets See Instructions, # 600 each, Refills 2, Tot. Refills 2, Maintenance, use as directed for Type 2 Diabetes Mellitus, 06/18/21 9:50:00 EDT, Supply, 167.6, cm, 06/18/21 8:09:00 EDT, Height, 75.8, kg, 06/09/21 11:38:00 EDT, Dry Weight Start Date: 06/18/21 Stop Date: 03/15/22 Status: OrderedFREESTYLE LITE GLUCOSE METER FREESTYLE LITE GLUCOSE METER, See Instructions, # 1 each, Refills 0, Tot. Refills 0, Maintenance, FOR GLUCOSE MONITORING DURING THE , 08/22/21 15:57:00 EDT, Supply, 168, cm, 07/15/21 8:15:00 EDT, Height, 75.8, kg, 06/09/21 11:38:00 EDT, Dry W... Start Date: 08/22/21 Status: OrderedFREESTYLE LITE LANCETS FREESTYLE LITE LANCETS, See Instructions, # 200 each, Refills 5, Tot. Refills 5, Maintenance, GLUCOSE MONITORING 4 TIMES A DAY DURING , 08/22/21 15:57:00 EDT, Supply, 168, cm, 07/15/21 8:15:00EDT, Height, 75.8, kg, 06/09/21 11:38:00 EDT, Dry... Start Date: 08/22/21 Status: OrderedFREESTYLE LITE STRIPS FREESTYLE LITE STRIPS, See Instructions, # 200 each, Refills 5, Tot. Refills 5, Maintenance, GLUCOSEMONITORING 4 TIMES PER DAY DURING THE , 08/22/21 15:57:00 EDT, Supply, 168, cm, 07/15/21 8:15:00 EDT, Height, 75.8, kg, 06/09/21 11:38:00 EDT... Start Date: 08/22/21 Status: OrderedFREESTYLE LITE TEST STRIP USE 1 [...] Refills 0, Tot. Refills 0, Maintenance, glucometer, 229:49:00 EDT, Supply, 167.6, cm, 06/18/21 8:09:00 EDT, Height, 75.8, kg, 06/09/21 11:38:00 EDT, Dry Weight Start Date: 06/18/21 Status: OrderedLasix 20 mg oral tablet 20 mg, 1, tablet, By Mouth, Every other day, Follow-up with your primary care doctor for further refills., # 45 tablet, Refills 3, Tot. Refills 3, Maintenance, 08/24/21 11:44:00 EDT, Route to Pharmacy Electronically, [facility]/pharmacy #[id number], Partial fill u... Start Date: 08/24/21 Status: OrderedLevemir FlexTouch 100 units/mL subcutaneous solution = 8 units, Subcutaneous Injection, Daily at bedtime, # 10 mL, 0 Refills, Maintenance, 08/24/21 11:26:00 EDT, Injection, [facility]/pharmacy #[id number], Partial fill upon patient request if the prescription is for a schedule II opioid drug., 168, cm, 08/24/21 10:3... Start Date: 08/24/21 Stop Date: 09/23/21 Status: OrderedMetoprolol Tartrate 25 mg oral tablet 1.5 tablet = 37.5 mg, By Mouth, 2 times a day, # 90 tablet, 3 Refills, Maintenance, 08/24/21 11:44:00 EDT, Tablet, [facility]/pharmacy #[id number], Partial fill upon patient request if the prescription is for a schedule II opioid drug., 168, cm, 08/24/21 11:41:00... Start Date: 08/24/21 Status: Orderedmultivitamin, Multivitamins oral tablet, chewable 1 tablet, Chew, Daily, Please fill chewable PNV that are covered by her insurance., # 90 tablet, 2 Refills, Maintenance, 08/23/21 13:05:00 EDT, Chew Tablet, Partial fill upon patient request if the prescription is for a schedule II opioid drug., 1 tab... Start Date: 08/23/21 Status: OrderedoxyCODONE 5 mg oral capsule 1 capsule = 5 mg, By Mouth, Every 6 hours, PRN as needed for pain, 0 Refills, Maintenance, 08/25/21 12:10:00 EDT, Capsule, Partial fill upon patient request if the prescription is for a schedule II opioid drug. Start Date: 08/25/21 Status: OrderedPeak Flow Meter (Adult) See Instructions, # 1 each, Maintenance, Use when wheezing or chest tightness. Call for peak flow less than 200., 08/24/21 15:17:00 EDT, Supply, 168, cm, 08/24/21 11:41:00 EDT, Height, 75.8, kg, 06/09/21 11:38:00 EDT, Dry Weight Start Date: 08/24/21 Status: OrderedPen [place], 30 G x 8 mm BD Ultra [...] Daily, # 90 tablet, 0 Refills, Maintenance, 08/24/21 11:27:00 EDT, Chew Tablet, [facility]/pharmacy #[id number], Partial fill upon patient request if the prescription is for a schedule II opioid drug., 1 tablet Chew Daily, 168estefany, 08/24/21 10:36:0... Start Date: 08/24/21 Status: OrderedProAir HFA 90 mcg/inh inhalation aerosol See Instructions, PRN Wheezing/Shortness of Breath, Inhale 2 puff every 4 to 6 hours as needed, # 18Gm, 0 Refills, Maintenance, 08/24/21 11:43:00 EDT, Inhaler, [id number], Partial fill upon patient request if the prescription is for a schedul... Start Date: 08/24/21 Status: OrderedSenexon-S 50 mg-8.6 mg oral tablet 2 tablet, By Mouth, 2 times a day, PRN Constipation, 0 Refills, Maintenance, 07/11/21 14:00:00 EDT, Partial fill upon patient request if the prescription is for a schedule II opioid drug. Start Date: 07/11/21 Status: OrderedUnisom 25 mg oral tablet 1 tablet = 25 mg, By Mouth, Daily, 15 to 30 minutes before bed, # 10 tablet, 0 Refills, Acute 09/22/21 0:00:00 EDT, 08/23/21 13:06:00 EDT, [id number], Partial fill upon patient request if the prescription is for a schedule II opioid drug., 168... Start Date: 08/23/21 Stop Date: 09/22/21 Status: OrderedVitamin B6 25 mg oral tablet 1 tablet = 25 mg, By Mouth, 3 times a day, # 30 tablet, 0 Refills, Acute 09/22/21 0:00:00 EDT, 08/23/21 13:06:00 EDT, [id number], Partial fill upon patient request if the prescription is for a schedule II opioid drug., estefany Verdin, 08/22/21 13:44:... Start Date: 08/23/21 Stop Date: 09/22/21 Status: Ordered Problem List Condition Effective Dates Status Health Status Informant Asthma(Confirmed)1 Active Blindness of right eye(Confirmed) Active Cardiac disease during , Active antepartum(Confirmed) H/O Chest pain(Confirmed) Active CKD (chronic kidney disease), stage Active III(Confirmed) IUFD at 20 weeks or more of Active gestation(Confirmed) Depression(Confirmed)2 Active Diabetes mellitus type 2(Confirmed)3 Active Heart failure with preserved ejection Active fraction, NYHA class I(Confirmed) Hypertension complicating Active (Confirmed) Hypertension(Confirmed)4 Active Migraine(Confirmed)5 Active Obese class I(Confirmed) Active Care Coordination [facility], [place] Active Jeanne, CC (Confirmed) Pre-existing diabetes mellitus Active affecting , antepartum(Confirmed) Poor vision(Confirmed)6 Active 1Managed by PCP. WEll controlled.2Self-manages. States currently stable. No medications.3Not seem at [facility] since 08/12/2016. Multiple no show in our center. She is seen by other provider Dr Matt Gutierrez by pharmacy records.4Managed by [id number] by PCP with [id number], states sees shadows and has blurry vision. Last eye doctor appointment was several years ago. Social History Social History Type Response Smoking Status Never (less than 100 in life time) entered on: 08/22/21 Sex
--- OUTSIDE RECORDS SUMMARY | 2022-03-31 18:19 | XMS_ITS | Continuity of Care Document ---
:1990 Author Organization [facility] Address [address] [place] [address]- Care Team Providers Name Role Phone Chirag CARLSON, Abdon Primary Care Physician [place] [facility] [place]): [place] 01/[place]22 [facility] [address] [place] [id number] Attending Physician: Carl Mcdonnell DO Admitting Physician: Carl Mcdonnell DO Allergies, Adverse Reactions, Alerts Substance Reaction Severity [...] '[id number] Note: TD4 Admin Note: unknown exact [id number] Note: unknown exact date Medications Alcohol Pads See Instructions, # 600 each, Refills 2, Tot. Refills 2, Maintenance, use as directed for Type 1 Diabetes Mellitus, 06/18/21 9:50:00 EDT, Supply, 167.6, cm, 06/18/21 8:09:00 EDT, Height, 75.8, kg, 06/09/21 11:38:00 EDT, Dry Weight Start Date: 06/18/21 Stop Date: 03/15/22 Status: OrderedBlood Pressure Monitor See Instructions, # 1 kit, Maintenance, To test blood pressures 2 x day. Severe HTN in , 08/31/21 12:03:00 EDT, Supply Start Date: 08/31/21 Status: OrderedColace sodium 100 mg oral capsule 100 mg, 1, capsule, By Mouth, 2 times a day, PRN, # 20 capsule, Refills 0, Tot. Refills 0, Maintenance, for constipation, 12/13/21 14:16:00 EDT, Route to Pharmacy Electronically, [facility]/pharmacy #[id number], Partial fill upon patient request if the prescriptio... Start Date: 12/13/21 Status: OrderedCoreg 25 mg oral tablet 50 mg, 2, tablet, By Mouth, 2 times a day, # 120 tablet, Refills 0, Tot. Refills 0, Maintenance, 12/13/21 14:16:00 EDT, Route to Pharmacy Electronically, [facility]/pharmacy #[id number], Partial fill upon patient request if the prescription is for a schedule II op... Start Date: 12/13/21 Status: OrderedFreestyle Lancets See Instructions, # 600 each, Refills 2, Tot. Refills 2, Maintenance, use as directed for Type 2 Diabetes Mellitus, 06/18/21 9:50:00 EDT, Supply, 167.6, cm, 06/18/21 8:09:00 EDT, Height, 75.8, kg, 06/09/21 11:38:00 EDT, Dry Weight Start Date: 06/18/21 Stop Date: 03/15/22 Status: OrderedFreestyle Rogerio Monitor See Instructions, # 1 each, Refills 0, Tot. Refills 0, Maintenance, Use as directed for Type 2 Diabetes Mellitus, 10/27/21 16:26:00 EDT, Supply, 168, cm, 10/27/21 13:07:00 EDT, Height, 75.8, kg, 06/09/21 11:38:00 EDT, Dry Weight Start Date: 10/27/21 Stop Date: 11/26/21 Status: OrderedFreestyle Rogerio Sensor See Instructions, # 2 each, Refills 6, Tot. Refills 6, Maintenance, Change every 14 days. 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 Start Date: 10/27/21 Stop Date: 05/25/22 Status: OrderedFREESTYLE LITE GLUCOSE METER FREESTYLE LITE [...] 06/09/21 11:38:00 EDT... Start Date: 08/22/21 Status: OrderedFreestyle Test Strips See Instructions, # 600 each, Refills 2, Tot. Refills 2, Maintenance, use as directed for Type 1 Diabetes Mellitus, 06/18/21 9:50:00 EDT, Supply, 167.6, cm, 06/18/21 8:09:00 EDT, Height, 75.8, kg, 06/09/21 11:38:00 EDT, Dry Weight Start Date: 06/18/21 Stop Date: 03/15/22 Status: OrderedHumalog Kwik Pen See Instructions, 8 units with breakfast; 10 units with lunch; 26 units with dinner. Subcutaneous injection daily., # 15 mL, 5 Refills, Maintenance, 10/27/21 16:22:00 EDT, Partial fill upon patient request if the prescription is for a schedule II opi... Start Date: 10/27/21 Status: OrderedhydrALAZINE 25 mg oral tablet 75 mg, 3, tablet, By Mouth, 3 times a day, # 270 tablet, Refills 0, Tot. Refills 0, Maintenance, 12/13/21 14:16:00 EDT, Route to Pharmacy Electronically, [facility]/pharmacy #[id number], Partial fill upon patient request if the prescription is for a schedule II op... Start Date: 12/13/21 Status: OrderedLevemir FlexTouch 100 units/mL subcutaneous solution See Instructions, INJECT 8 UNITS SUBCUTANEOUSLY AT BEDTIME FOR 30 DAYS, # 15 Unknown, 0 Refills, Maintenance, 12/19/21 16:07:00 EDT, [id number], 168, cm, 12/13/21 12:57:00 EDT, Height, 90, kg, 12/13/21 11:35:00 EDT, Dry Weight Start Date: 12/19/21 Status: OrderedNIFEdipine (Eqv-Procardia XL) 90 mg oral tablet, extended release 1 tablet = 90 mg, By Mouth, Daily, # 30 tablet, 0 Refills, Maintenance, 12/13/21 14:16:00 EDT, [facility]/pharmacy #[id number], Partial fill upon patient request if the prescription is for a schedule II opioid drug., 168, cm, 12/13/21 12:57:00 EDT, Height, 90, kg,... Start Date: 12/13/21 Status: OrderedoxyCODONE 5 mg oral tablet 5 mg, 1, tablet, By Mouth, Every 6 hours, PRN, for severe post-operative pain, # 10 tablet, Refills 0, Tot. Refills 0, Maintenance, as needed for pain, 12/13/21 14:17:00 EDT, Route to Pharmacy Electronically, [facility]/pharmacy #[id number], Partial fill upon elisa... Start Date: 12/13/21 Status: OrderedPeak Flow Meter (Adult) See Instructions, # 1 each, Maintenance, Use when wheezing or chest tightness. Call for peak flow less than 200., 08/24/21 15:17:00 EDT, Supply, 168, cm, 08/24/21 11:41:00 EDT, Height, 75.8, kg, 06/09/21 11:38:00 EDT, Dry Weight Start Date: 08/24/21 Status: OrderedPen [place], 30 G x 8 mm BD Ultra Fine II See Instructions, # 300 each, Refills 2, Tot. Refills 2, Maintenance, use as directed for Type 2 Diabetes Mellitus, 06/18/21 9:51:00 EDT, Supply, 167.6, cm, 06/18/21 8:09:00 EDT, Height, 75.8, kg, 06/09/21 11:38:00 EDT, Dry Weight Start Date: 06/18/21 Stop Date: 03/15/22 Status: OrderedProAir HFA 90 mcg/inh inhalation aerosol See Instructions, PRN Wheezing/Shortness of Breath, Inhale 2 puff every 4 to 6 hours as needed, # 18Gm, 0 Refills, Maintenance, 08/24/21 11:43:00 EDT, Inhaler, [facility]/pharmacy #[id number], Partial fill upon patient request if the prescription is for a schedul... Start Date: 08/24/21 Status: OrderedSenexon-S 50 mg-8.6 mg oral tablet 2 tablet, By Mouth, 2 times a day, PRN Constipation, 0 Refills, Maintenance, 07/11/21 14:00:00 EDT, Partial fill upon patient request if the prescription is for a schedule II opioid drug. Start Date: 07/11/21 Status: Orderedsimethicone 80 mg oral tablet, chewable 80 mg, 1, tablet, Chew, 4 times a day, PRN, # 12 tablet, Refills 0, Tot. Refills 0, Maintenance, as needed for gas, 12/13/21 14:17:00 EDT, Route to Pharmacy Electronically, [facility]/pharmacy #[id number], Partial fill upon patient request if the prescription is f... Start Date: 12/13/21 Status: OrderedTylenol Extra Strength 500 mg oral tablet 2 tablet = 1,000 mg, By Mouth, Every 4 hours, PRN for pain, # 120 tablet, 0 Refills, Maintenance, 12/13/21 14:17:00 EDT, Tablet, [facility]/pharmacy #[id number], Partial fill upon patient request if the prescription is for a schedule II opioid drug., 168, cm, 11/26... Start Date: 12/13/21 Status: Ordered Problem List Condition Confirmation Course Effective Dates Status Health Stat us Informant Asthma1 Confirmed Active Blindness of right Confirmed Active eye Cardiac disease Confirmed Active during , antepartum H/O Chest pain Confirmed Active CKD (chronic kidney Confirmed Active disease), stage III IUFD at 20 weeks or Confirmed Active more of gestation Depression2 Confirmed Active Diabetes mellitus Confirmed Active type 23 growth Confirmed Active retardation, Heart failure with Confirmed Active preserved ejection fraction, NYHA class I Hypertension4 Confirmed Active Migraine5 Confirmed Active Obese class I Confirmed Active Care Coordination Confirmed Active BHN-BHCP, Hakan Angel, CC 1Managed by PCP. WEll controlled.2Self-manages. States currently stable. No medications.3Not seem at [facility] since 08/12/2016. Multiple no show in our center. She is seen by other provider Dr Matt Gutierrez by pharmacy records.4Managed by [id number] by PCP with Tylenol Social History Social History Type Response Smoking Status Never (less than 100 in life time) entered on: 08/22/21 Sex Patient Care team information Care Team PersonnelName: Anuradha Morris RN Position: S RN Member Role: Primary Care Nurse Name: Omega Gillespie RN Position: S RN Member Role: Primary Care Nurse Name: Paty Kelly RN Position: [facility] RN Member Role: Primary Care Nurse Name: Sonia Malone Position: S RN Member Role: Primary Care Nurse Name: Keira Desai RN Position: [facility] RN Member Role: Primary Care Nurse Name: Gomez Moseley RN Position: [facility] RN Supv Member Role: Primary Care Nurse Name: Vashti Bruce RN Position: [facility] RN Member Role: Primary Care Nurse Name: Raghav Granger Position: [facility] RN Member Role: Primary Care Nurse Name: Cassy Caraballo RN Position: [facility] RN Member Role: Primary Care Nurse Name: Lisa Vines RN Position: [facility] RN Member Role: Primary Care Nurse Name: Larissa Barnett RN Position: [facility] RN Member Role: Primary Care Nurse Name: Inna Beckwith RN Position: [facility] RN Member Role: Primary Care Nurse Name: Cady Araya RN Position: [facility] RN Member Role: Primary Care Nurse Name: Abdon Beard MD Position: [facility] Outreach Member Role: PCP Address: Address: [address] [place] [address]- [place] Name: Michele Blancas DO Position: [facility] Renal MD Member Role: Lifetime Consulting Physician Address: Address: [address] [place], [place] [address] [place] [address]- [place] Name: María Acosta RN Position: S RN Member Role: Primary Care Nurse Name: Heather Correa RN Position: [facility] RN Member Role: Primary Care Nurse Name: Janelle Hall RN Position: [facility] RN Member Role: Primary Care Nurse Name: Alison Howard RN Position: S RN Member Role: Primary Care Nurse Name: Farzana Sevilla Position: S RN Member Role: Primary Care Nurse Name: Libertad Sim RN Position: S RN Member Role: Primary Care Nurse Name: Javan Pimentel MD Position: [facility] Renal MD Member Role: Lifetime Consulting Physician Address: Address: [address] [place] [address] [address] [facility], [place] [address]- Name: Heather Pal RN Position: [facility] RN Member Role: Primary Care Nurse Name: Jody Rasmussen RN Position: [facility] RN Member Role: Primary Care Nurse Name: Mau Hazel RN Position: [facility] RN Member Role: Primary Care Nurse Name: Pedro Taylor RN Position: [facility] RN Member Role: Primary Care Nurse Name: Charlotte Singletary RN Position: [facility] OB RN Member Role: Primary Care Nurse Name: Kendall Coleman RN Position: [facility] RN Member Role: Primary Care Nurse Name: Nancy Fair RN Position: [facility] SN RN Member Role: Primary Care Nurse Name: Fernando Siddiqi MD Position: [facility] Renal MD Member Role: Lifetime Consulting Physician Address: Address: [address] [place] [address] [facility] [place] [address]- Name: Lianne Byrnes RN Position: [facility] RN Member Role: Primary Care Nurse Name: Tona Jacome LPN Position: [facility] RN Member Role: Primary Care Nurse Name: Tatiana Madrigal RN Position: S RN Member Role: Primary Care Nurse Care Team Related PersonsName: LEONOR MCFARLAND Address: home [address] [place] [address] Name: REJI TAYLOR Address: home [address] [place] [address] Name: JEFF CHAPMAN Address: [id number] Address: home [address] [address] [place] Name: ELI BONILLA
--- OUTSIDE RECORDS SUMMARY | 2022-03-31 18:19 | XMS_ITS | Continuity of Care Document ---
:1990 Author Organization [facility] Address [address] [place] [address]- Care Team Providers Name Role Phone Abdon Beard MD Primary Care Physician Encounter [facility] [place] Date(s): 11/18/21 - 12/25/21 [facility] [address] [place] [id number] Attending Physician: Juany Iglesias MD Admitting Physician: Juany Iglesias MD Referring Physician: Abdon Beard MD Allergies, Adverse Reactions, Alerts Substance Reaction [...] '943Admin Note: TD4 Admin Note: unknown exact [id number] Note: unknown exact date Medications Alcohol Pads [...] 12/13/21 14:16:00 EDT, Route to Pharmacy Electronically, [facility]/pharmacy #[id number], Partial fill upon patient request if the prescriptio... Start Date: 12/13/21 Status: OrderedCoreg 25 mg oral tablet 50 mg, 2, tablet, By Mouth, 2 times a day, # 120 tablet, Refills 0, Tot. Refills 0, Maintenance, 12/13/21 14:16:00 EDT, Route to Pharmacy Electronically, [facility]/pharmacy #[id number], Partial fill upon patient request if the [...] 12/13/21 14:16:00 EDT, Route to Pharmacy Electronically, [facility]/pharmacy #[id number], Partial fill upon patient request if the prescription is for a schedule II op... Start Date: 12/13/21 Status: OrderedLevemir FlexTouch 100 units/mL subcutaneous solution See Instructions, INJECT 8 UNITS SUBCUTANEOUSLY AT BEDTIME FOR 30 DAYS, # 15 Unknown, 0 Refills, Maintenance, 12/19/21 16:07:00 EDT, [id number], 168, cm, 12/13/21 12:57:00 EDT, Height, 90, kg, 12/13/21 11:35:00 EDT, Dry Weight Start Date: 12/19/21 Status: OrderedNIFEdipine (Eqv-Procardia XL) 90 mg oral tablet, extended release 1 tablet = 90 mg, By Mouth, Daily, # 30 tablet, 0 Refills, Maintenance, 12/13/21 14:16:00 EDT, [facility]/pharmacy #[id number], Partial fill upon patient request if [...] 12/13/21 14:17:00 EDT, Route to Pharmacy Electronically, [facility]/pharmacy #[id number], Partial fill upon elisa... Start Date: 12/13/21 Status: OrderedPeak Flow Meter (Adult) See Instructions, # 1 each, Maintenance, Use when wheezing or chest tightness. Call for peak flow less than 200., 08/24/21 15:17:00 EDT, Supply, 168, cm, 08/24/21 11:41:00 EDT, Height, 75.8, kg, 06/09/21 11:38:00 EDT, Dry Weight Start Date: 08/24/21 Status: OrderedPen [place], 30 G x 8 mm BD Ultra [...] 0 Refills, Maintenance, 08/24/21 11:43:00 EDT, Inhaler, [facility]/pharmacy #[id number], Partial fill upon patient request if [...] 12/13/21 14:17:00 EDT, Route to [facility]ically, [id number], Partial fill upon patient request if the prescription is f... Start Date: 12/13/21 Status: OrderedTylenol Extra Strength 500 mg oral tablet 2 tablet = 1,000 mg, By Mouth, Every 4 hours, PRN for pain, # 120 tablet, 0 Refills, Maintenance, 12/13/21 14:17:00 EDT, Tablet, [facility]/pharmacy #[id number], Partial fill upon patient request if [...] I Confirmed Active Care Coordination Confirmed Active BHN-CP, Hakan Angel, CC 1Managed by PCP. WEll controlled.2Self-manages. States currently stable. No medications.3Not seem at [facility] since 08/12/2016. Multiple no show in our center. She is seen by other provider Dr Matt Gutierrez by pharmacy records.4Managed by [id number] by PCP with Tylenol Social History Social History Type Response Smoking Status Never (less than 100 in life time) entered on: 08/22/21 Sex Patient Care team information PersonnelName: Chirag CARLSON, Abdon Address: Address: [address] [place] [address]
--- OUTSIDE RECORDS SUMMARY | 2022-03-31 18:20 | XMS_ITS | Continuity of Care Document ---
:1990 Author Organization [facility] Address [address] [place] [phone]- Care Team Providers Name Role Phone Chirag CARLSON, Abdon Primary Care Physician Encounter [facility] Date(s): 07/11/21 - 07/15/[address] [address] Encounter Diagnosis Abdominal pain (Final) - 07/11/21 Discharge Disposition: A-D/C Home Attending Physician: Brenden Munguia MD Admitting Physician: Barbi Michel MD Referring Physician: Not on Staff, Referring MD Allergies, Adverse Reactions, Alerts Substance Reaction Severity Status vancomycin1, 2 Tightness in throat Active morphine Active Zosyn3 angioedema Severe Active 1Tolerates again [...] '943Admin Note: TD4 Admin Note: unknown exact [id number] Note: unknown exact date Medications acetaminophen 325 [...] 06/18/21 9:46:00 EDT, Route to Pharmacy Electronically, [facility], Partial fill upon patient request if the prescription is for a schedule II opioid... Start Date: 06/18/21 Status: Orderedatorvastatin 40 mg oral tablet 1 tablet = 40 mg, By Mouth, Daily at bedtime, Follow-up with your primary care doctor for further refills., # 30 tablet, 1 Refills, Maintenance, 06/18/21 9:46:00 EDT, Tablet, [facility], Partial fill upon patient request if the prescript... Start Date: 06/18/21 Status: Orderedcephalexin monohydrate 500 mg oral capsule 1 capsule = 500 mg, By Mouth, Every 6 hours, for 14 days, # 56 capsule, 0 Refills, Acute 07/28/21 16:28:00 EDT, 07/14/21 16:28:00 EDT, Capsule, [facility]/pharmacy #[id number], Partial fill upon patient request if the prescription is for a schedule II opioid drug.... Start Date: 07/14/21 Stop Date: 07/28/21 Status: OrderedDilaudid Inj 0.5 mg, Injection, IV Push Slowly, Every 4 hours, PRN for Pain , Severe, Routine, 07/11/21 2:58:00 EDT Start Date: 07/11/21 Stop Date: 07/15/21 Status: Discontinuedduloxetine 30 mg oral enteric coated capsule 1 capsule = 30 mg, By Mouth, 2 times a day, # 60 capsule, 0 Refills, Maintenance, 06/18/21 9:46:00 EDT, Capsule, [facility], Partial fill upon patient [...] 3 Refills, Maintenance, 11/17/20 10:19:00 EDT, Tablet, [facility]/pharmacy #[id number], Partial fillupon patient request if the prescription is for a... Start Date: 11/17/20 Status: OrderedLasix 20 mg oral tablet 20 mg, 1, tablet, By Mouth, Every other day, Follow-up with your primary care doctor for further refills., # 30 tablet, Refills 0, Tot. Refills 0, Maintenance, 07/14/21 16:27:00 EDT, Route to Pharmacy Electronically, [facility]/pharmacy #[id number], Partial fill u... Start Date: 07/14/21 Status: OrderedLevemir FlexTouch 100 units/mL subcutaneous solution = 8 units, Subcutaneous Injection, Daily at bedtime, # 10 mL, 0 Refills, Maintenance, 06/19/21 9:20:00 EDT, Injection, [facility], Partial fill upon patient request if the prescription isfor a schedule II opioid drug., 167.6, cm, 06/18/... Start Date: 06/19/21 Stop Date: 07/19/21 Status: Orderedlidocaine 5% topical film 1 patch, Topically, Daily, PRN Pain , Mild, remove after 12 hours, # 13 each, 0 Refills, Maintenance, 04/19/21 11:26:00 EST, Film, [facility]/pharmacy #[id number], Partial fill upon patient request if the prescription is for a schedule II opioid drug., 1 patch Top... Start Date: 04/19/21 Status: Orderedlisinopril 5 mg oral tablet 5 mg, 1, tablet, By Mouth, Daily, # 30 tablet, Refills 0, Tot. Refills 0, Maintenance, 07/14/21 16:28:00 EDT, Route to Pharmacy Electronically, [facility]/pharmacy #[id number], Partial fill upon patient request if the prescription is for a schedule II opioid drug.... Start Date: 07/14/21 Status: Orderedlisinopril 5 mg oral tablet 5 mg, Tablet, By Mouth, 07/15/21 8:00:00 EDT Start Date: 07/15/21 Stop Date: 07/15/21 Status: Completedmetoprolol 25 mg oral tablet 37.5 mg, Tablet, By Mouth, 07/14/21 21:00:00 EDT Start Date: 07/14/21 Stop Date: 07/14/21 Status: Completedmetoprolol 25 mg oral tablet 37.5 mg, Tablet, By Mouth, 07/15/21 9:00:00 EDT Start Date: 07/15/21 Stop Date: 07/15/21 Status: CompletedMetoprolol Tartrate 25 mg oral tablet 1.5 tablet [...] 0 Refills, Maintenance, 03/31/21 14:26:00 EST, Tablet, [facility]/pharmacy #[id number], Partial fill... Start Date: 03/31/21 Status: OrderedoxyCODONE 5 mg oral tablet 5 mg, 1, tablet, By Mouth, Every 6 hours, PRN, Refills 0, Tot. Refills 0, Pain , Severe Start Date: 06/09/21 Status: OrderedPen Clio, 30 G x 8 mm BD Ultra [...] II opioid drug. Start Date: 07/11/21 Status: Orderedsodium bicarbonate 650 mg oral tablet 1 tablet = 650 mg, By Mouth, 2 times a day, for 14 days, # 28 tablet, 0 Refills, Acute 07/28/21 16:29:00 EDT, 07/14/21 16:29:00 EDT, Tablet, [facility]/pharmacy #[id number], Partial fill upon patient request if theprescription is for a schedule II opioid drug., 1... Start Date: 07/14/21 Stop Date: 07/28/21 Status: Ordered Problem List Condition Effective Dates Status Health Status Informant Asthma(Confirmed) Active Blindness of right eye(Confirmed) Active Blood group A Rh(D) Active positive(Confirmed) Chest pain(Confirmed) Active IUFD at 20 weeks or more of Active gestation(Confirmed) Depression(Confirmed) Active Diabetes mellitus type 2(Confirmed)1 Active Hypertension(Confirmed) Active Care Coordination [facility], [place] Active Jeanne, CC (Confirmed) delivery(Confirmed) Active delivery(Confirmed) Active 1Not seem at [facility] since 08/12/2016. Multiple no show in our center. She is seen by other provider Dr Matt Gutierrez by pharmacy records. Results Orders for Microbiology Reports Name Date Blood Culture 07/10/21 Blood Culture #2 07/10/21 Microbiology Reports TEST:Blood Culture STATUS:Auth (Verified) BODY SITE: SOURCE:Blood COLLECTED DATE/TIME:07/10/21 3:46 PMBlood Culture SPECIMEN DESCRIPTION : BLOOD R SPECIAL REQUESTS : NONE CULTURE : NO GROWTH 5 DAYS. REPORT STATUS : FINAL 07/15/2021TEST:Blood Culture, Second Order STATUS:Auth (Verified) BODY SITE: SOURCE:Blood COLLECTED DATE/TIME:07/10/21 3:35 PMBlood Culture, Second Order SPECIMEN DESCRIPTION : BLOOD LAC SPECIAL REQUESTS : NONE CULTURE : NO GROWTH 5 DAYS. REPORT STATUS : FINAL 2Radiology Reports Exam Date Time Procedure Performing Provider Status 07/11/21 7:13 PM Chest 2 Views Frontal and Lat Erin Diego [facility] (Verified) Notes:(Chest 2 Views Frontal and Lat) Reason For Exam: Shortness of Breath RESULT: Chest 2 Views Frontal and Lat Chest 2 Views Frontal and Lat Reason: Shortness of Breath; Clinical Question(s): Lymphoma COMPARISON: Multiple priors, most recently 06/09/2021. FINDINGS: LINES AND TUBES: None. LUNGS AND PLEURA: Trace effusion/atelectasis. Lungs are otherwise clear. No pneumothorax. HEART, MEDIASTINUM AND EVERT: Mildly prominent cardiomediastinal silhouette similar to prior. Normal upper mediastinal and hilar contour. BONES AND SOFT TISSUES: No acute abnormality. IMPRESSION: Trace effusion/atelectasis. No bulky lymphadenopathy. However, consider cross- sectional imaging for more sensitive evaluation.. WSN: [id number] Ordering Physician: Effie Lopez Dictated By: Jose Manuel Maria MD Dictated Date/Time: 07/11/21 7:25 pm Reviewed By: Jose Manuel Maria MD Signed By: Jose Manuel Maria MD Signed Date/Time: 07/11/21 7:25 pm Transcribed By: ALEXIS Transcribed Date/Time: 07/11/21 7:19 pm Exam Date Time Procedure Performing Provider Status 07/10/21 5:05 PM Foot Min 3 Views Right Holly Amaya; Auth (Ve rified) Notes:(Foot Min 3 Views Right) Reason For Exam: PainRESULT: Foot Min 3 Views Right Foot Min 3 Views Right CLINICAL INDICATION: Hx of Present Illness: Coming from home - pt woke up at 7am with ankle pain.. chest in swollen ; having abd pain. recent diagnosis with osteomyeltitis R foot-. c o chest pain. nonmed compliant - has not been taking insulin. PICC line fell out this AM.; Reason: Pain; Clinical Question(s): Osteomyelitis COMPARISONS: None TECHNIQUE: AP, lateral and oblique views of the right foot were obtained. FINDINGS: Status post transmetatarsal amputation. There is soft tissue edema overlying the stump. No erosive changes of the remaining bones. There is no fracture or dislocation. The Lisfranc joint space is normally aligned. No retained foreign body. Hindfoot midfoot alignment is normal. IMPRESSION: Soft tissue swelling at the amputation site without erosive changes or bone destruction to suggest ongoing osteomyelitis. WSN: [id number] Ordering Physician: Laurent Hilliard Dictated By: Mihai Coates MD Dictated Date/Time: 07/10/21 5:19 pm Reviewed By: Mihai Coates MD Signed By: Mihai Coates MD Signed Date/Time: 07/10/21 5:19 pm Transcribed By: ALEXIS Transcribed Date/Time: 07/10/21 5:08 pm Vital Signs Most recent to oldest 1 2 3 [Reference Range]: Height 168 cm 168 cm 168 cm (07/15/21 8:15 AM) (07/13/21 8:22 PM) (07/13/21 7:0 0 AM) Oxygen Saturation [94-100 %] 100 % 100 % 97 % (07/15/21 8:15 AM) (07/14/21 8:00 PM) (07/14/21 7:0 0 AM) Pulse Rate [55-90 bpm] 87 bpm 87 bpm 96 bpm (07/15/21 9:00 AM) (07/15/21 8:15 AM) *H* (07/14/21 9:56 PM ) Blood Pressure [90-138/55-84 142/71 mm Hg 142/71 mm Hg 142 /71 mm Hg mm Hg] *H* *H* *H* (07/15/21 9:00 AM) (07/15/21 9:00 AM) (07/15/21 8:1 5 AM) Respiratory Rate [16-30 22 br/min 18 br/min 18 br/mi n br/min] (07/15/21 8:15 AM) (07/15/21 6:57 AM) (07/15/21 2:3 9 AM) Temperature [96.8-100.4 DegF] 98.3 DegF 98.9 DegF 98 .6 DegF (07/15/21 8:15 AM) (07/14/21 8:00 PM) (07/14/21 7:0 0 AM) Liters per Minute 0 L/min 0 L/min (07/11/21 10:57 AM) (07/11/21 8:03 AM) Mode of Delivery (Oxygen) Room air Room air Room a ir (07/15/21 8:15 AM) (07/14/21 8:00 PM) (07/14/21 7:0 0 AM) Blood pressure sites Arm, right Arm, right Arm, left (07/15/21 8:15 AM) (07/14/21 8:00 PM) (07/14/21 7:0 0 AM) Temperature Route Oral Oral Oral (07/15/21 8:15 AM) (07/14/21 8:00 PM) (07/14/21 7:0 0 AM) Social History Social History Type Response Smoking Status Never (less than 100 in life time) entered on: 04/23/21 Sex
--- OUTSIDE RECORDS SUMMARY | 2022-03-31 18:20 | XMS_ITS | Continuity of Care Document ---
:1990 Author Organization [facility] Address [address] [place] [id number]- Care Team Providers Name Role Phone Abdon Beard MD Primary Care Physician Encounter [facility] Date(s): 02/14/21 - 03/06/21 [facility] [address] [place] [id number] Attending Physician: Jason Gould MD Admitting Physician: Jason Gould MD Allergies, Adverse Reactions, Alerts Substance Reaction Severity Status morphine Active Zosyn angioedema Severe Active Immunizations Given and Recorded Vaccine Date Status Refusal Reason tetanus/diphtheria/pertussis, acel(Tdap)1 06/27/12 Given influenza virus vaccine, [...] '943Admin Note: TD4 Admin Note: unknown exact [id number] Note: unknown exact date Medications amLODIPine 10 mg oral tablet 1 tablet = 10 mg, By Mouth, Daily, 0 Refills, Maintenance, 02/03/21 9:50:00 EST, Tablet, ; Start Date: 02/03/21 Status: Orderedcephalexin monohydrate 500 mg oral capsule 1 capsule = 500 mg, By Mouth, Every 6 hours, for 11 days, TO TAKE EVERY 6 HOURS FOR 11 MORE DAYS (LAST DOSE ON 01/09 PM) THEN SWITCH TO 2 TIMES A DAY TO PREVENT INFECTION, # 45 capsule, 0 Refills, Acute 03/11/21 15:54:00 EST, 02/28/21 15:54:00 EST, Ca... Start Date: 02/28/21 Stop Date: 03/11/21 Status: Orderedcephalexin monohydrate 500 mg oral capsule 1 capsule = 500 mg, By Mouth, Every 12 hours, TO START ON 03/12/21, TO PREVENT INFECTION FROM RETURNING, # 180 capsule, 0 Refills, Acute 06/10/21 15:59:00 EDT, 02/28/21 15:59:00 EST, Capsule, [facility], Partial fill upon patient request... Start Date: 02/28/21 Stop Date: 06/10/21 Status: Ordereddiclofenac 1% topical gel = 2 Gm, Topically, 4 times a day, # 112 Gm, 0 Refills, Maintenance, 02/05/21 12:34:00 EST, Gel, [facility], Partial fill upon patient request if the prescription is for a schedule II opioid drug., 170, cm, 03/05/20 14:05:00 EST, Height,... Start Date: 02/05/21 Stop Date: 02/19/21 Status: Orderedferrous sulfate 325 mg oral tablet 1 tablet = 325 mg, By Mouth, Daily, Maintenance, 02/03/21 16:48:00 EST, Tablet, ; Start Date: 02/03/21 Status: Orderedfurosemide 20 mg oral tablet TAKE 1 TABLET BY MOUTH EVERY DAY Start Date: 02/28/21 Status: Orderedisosorbide mononitrate 30 mg oral tablet, extended release 1 tablet = 30 mg, By Mouth, Daily in AM, 0 Refills, Maintenance, 02/03/21 9:49:00 EST, ER Tablet, ; Start Date: 02/03/21 Status: OrderedJardiance 10 mg oral tablet 1 tablet = 10 mg, By Mouth, Daily in AM, Take 1 tablet daily in the morning. E11. 90-day supply.,# 90 tablet, 3 Refills, Maintenance, 11/17/20 10:19:00 EDT, Tablet, [id number], Partial fillupon patient request if the prescription is for a... Start Date: 11/17/20 Status: OrderedLevemir FlexTouch 100 units/mL subcutaneous solution See Instructions, Take 40 units once daily. . 90-day supply., # 45 mL, 3 Refills, Maintenance,11/17/20 10:20:00 EDT, [id number], Stop Lantus. Start Levemir., 170, cm, 03/05/20 14:05:00 EST, Height, 82, kg, 03/05/20 14:53:00 EST, Dry Weight Start Date: 11/17/20 Status: OrderedMetoprolol Tartrate 25 mg oral tablet 1 tablet = 25 mg, By Mouth, 2 times a day, 0 Refills, Maintenance, 02/03/21 9:49:00 EST, Tablet, ; Start Date: 02/03/21 Status: OrderedNovoLOG FlexPen 100 units/mL subcutaneous solution See Instructions, Take 11-21 units, 3 times daily before meals. . -day supply., # 75 mL, 3 Refills, Maintenance, 11/17/20 10:20:00 EDT, Solution, [id number], Partial fill upon patient request if the prescription is for a schedule II op... Start Date: 11/17/20 Status: OrderedoxyCODONE 5 mg oral tablet 5 mg, 1, tablet, By Mouth, Every 6 hours, PRN, Refills 0, Tot. Refills 0, Maintenance, as needed forpain, 02/28/21 16:23:00 EST, Partial fill upon patient request if the prescription is for a scheduleII opioid drug. Start Date: 02/28/21 Status: Orderedsertraline 25 mg oral tablet 1 tablet = 25 mg, By Mouth, Daily, Maintenance, 02/03/21 16:47:00 EST, Tablet, ; Start Date: 02/03/21 Status: Orderedspironolactone 50 mg oral tablet TAKE 1 TABLET BY MOUTH EVERY DAY Start Date: 02/28/21 Status: Ordered Problem List Condition Effective Dates Status Health Status Informant Asthma(Confirmed) Active Blindness of right eye(Confirmed) Active Blood group A Rh(D) Active positive(Confirmed) IUFD at 20 weeks or more of Active gestation(Confirmed) Depression(Confirmed) Active Diabetes mellitus type 2(Confirmed)1 Active Hypertension(Confirmed) Active Obese class I(Confirmed) Active Care Coordination [facility], [place] Active Jeanne, CC (Confirmed) delivery(Confirmed) Active delivery(Confirmed) Active 1Not seem at [facility] since 08/12/2016. Multiple no show in our center. She is seen by other provider Dr Matt Gutierrez by pharmacy records. Social History Social History Type Response Smoking Status Never smoker entered on: 03/28/17 Sex
--- OUTSIDE RECORDS SUMMARY | 2022-03-31 18:20 | XMS_ITS | Continuity of Care Document ---
:1990 Author Organization [facility] Address [address] [place] [address]- Care Team Providers Name Role Phone Not on Staff, PCP Primary Care Physician Unavailable [facility]counter [facility] Date(s): 02/24/20 - 03/25/20 [facility] [address] [place], [place] [address] Attending Physician: Michael Marquez Admitting Physician: Michael Marquez Referring Physician: Michael Marquez Allergies, Adverse Reactions, Alerts Substance Reaction Severity Status morphine Active Immunizations Given and Recorded Vaccine Date [...] 88 Given Diphth/Pertussis, Whl Cell/Tet(oldterm) 88 Given 1Admin Note: VIS 03/21/11 (given)2Admin Note: hx varicella '943Admin Note: TD4 Admin Note: unknown exact [id number] Note: unknown exact date Medications aspirin 81 mg oral delayed release tablet 162 mg, 2, tablet, By Mouth, Daily, To begin taking at 12 weeks gestational age - Approx. Apr 14 2020, # 30 tablet, Refills 0, Tot. Refills 0, Maintenance, 03/05/20 14:49:00 EST, Route to Pharmacy Electronically, [facility]/pharmacy #[id number], Partial fill upo... Start Date: 03/05/20 Status: Orderedbedside commode bedside commode, See Instructions, # 1 each, Refills 0, Tot. Refills 0, Maintenance, DX DM E 11.9 using at bedside, 11/14/17 17:17:55 EDT, Compound Start Date: 11/14/17 Status: OrderedDEXCOM G6 LINE SERVICE SUPERVISOR DEXCOM G6 LINE SERVICE SUPERVISOR, See Instructions, # 1 each, Refills 0, Tot. Refills 0, Maintenance, Use to monitor blood lgucose levels [facility]: [id number] E10.9, 03/25/20 11:50:00 EST, Supply Start Date: 03/25/20 Status: OrderedDEXCOM G6 SENSOR, 3 PACK DEXCOM G6 SENSOR, 3 PACK, See Instructions, # 3 each, Refills 3, Tot. Refills 3, Maintenance, Use tomonitor blood sugar. E10.9 [facility] [id number], 03/25/20 11:50:00 EST, Supply Start Date: 03/25/20 Status: OrderedDEXCOM G6 TRANSMITTER DEXCOM G6 TRANSMITTER, See Instructions, # 2 each, Refills 3, Tot. Refills 3, Maintenance, DEXCOM [id number], 03/25/20 11:50:00 EST, Supply Start Date: 03/25/20 Status: OrderedDME shower chair DME shower chair, See Instructions, # 1 each, Refills 0, Tot. Refills 0, Maintenance, DM E 11.9, 11/14/17 17:17:48 EDT, Compound Start Date: 11/14/17 Status: OrderedFreestyle Lite Lancets See Instructions, # 200 each, Refills 5, Tot. Refills 5, Maintenance, use as directed for Type 2 Diabetes Mellitus, 03/22/17 12:03:09, Compound Start Date: 03/22/17 Stop Date: 09/18/17 Status: OrderedFreestyle Lite Monitor See Instructions, # 1 each, Refills 0, Tot. Refills 0, Maintenance, Use to check blood sugar 5 timesdaily. E11.65, 02/05/20 14:37:00 EST, Supply, 170, cm, 01/08/20 13:38:00 EST, Height, 99.1, kg, 01/03/20 5:38:00 EST, Dry Weight Start Date: 02/05/20 Stop Date: 03/06/20 Status: OrderedFreestyle Lite Test Strips See Instructions, # 200 each, Refills 5, Tot. Refills 5, Maintenance, use as directed for Type 2 Diabetes Mellitus, 03/22/17 12:02:07, Compound Start Date: 03/22/17 Stop Date: 09/18/17 Status: OrderedLantus Solostar Pen 100 units/mL subcutaneous solution See Instructions, Take 40 units once daily. E11.65, # 30 mL, 5 Refills, Maintenance, 02/05/20 20:04:00 EST, Solution, [facility]/pharmacy #[id number], Partial fill upon patient request if the prescription is for a schedule II opioid drug., 170, cm, 01/08/20 13:38:... Start Date: 02/05/20 Status: OrderedLevemir FlexTouch 100 units/mL subcutaneous solution See Instructions, Take 40 units once daily. E11.65, # 30 mL, 5 Refills, Maintenance, 02/18/20 16:48:00 EST, [id number], Stop Lantus. Start Levemir., 170, cm, 01/08/20 13:38:00 EST, Height, 99.1, kg, 01/03/20 5:38:00 EST, Dry Weight Start Date: 02/18/20 Status: OrderedNIFEdipine 30 mg oral tablet, extended release 30 mg, 1, tablet, By Mouth, Daily, do not crush or chew, # 90 tablet, Refills 2, Tot. Refills 2, Maintenance, 03/05/20 14:48:00 EST, Route to Pharmacy Electronically, [facility]/pharmacy #[id number], Partial fill upon patient request if the prescription is for a s... Start Date: 03/05/20 Status: OrderedNovoLOG FlexPen 100 units/mL subcutaneous solution See Instructions, Max daily dose 50 units, per sliding scale. E11.65, # 30 mL, 5 Refills, Maintenance, 02/05/20 14:37:00 EST, Solution, [id number], Partial fill upon patient request if the prescription is for a schedule II opioid drug., 170, c... Start Date: 02/05/20 Status: OrderedPrenatal Multivitamins with Folic Acid 1 mg oral tablet 1 tablet, By Mouth, Daily, # 90 tablet, 2 Refills, Maintenance, 03/05/20 14:51:00 EST, Tablet, [id number], Partial fill upon patient request if the prescription is for a schedule II opioid drug., 1 tablet By Mouth Daily, 170, cm, 01/08/20 13:3... Start Date: 03/05/20 Status: OrderedTrulicity Pen 0.75 mg/0.5 mL subcutaneous solution 0.5 mL = 0.75 mg, Subcutaneous Injection, Every week, Take 0.75mg once weekly x 4 weeks then call office to increase dose., # 2.5 mL, 0 Refills, Maintenance, 02/05/20 14:37:00 EST, Solution, [id number], Partial fill upon patient request if the... Start Date: 02/05/20 Status: Ordered Problem List Condition Effective Dates Status Health Status Informant Asthma(Confirmed) Active Blindness of right eye(Confirmed) Active Blood group A Rh(D) Active positive(Confirmed) IUFD at 20 weeks or more of Active gestation(Confirmed) Depression(Confirmed) Active Diabetes mellitus type 2(Confirmed)1 Active Hypertension(Confirmed) Active Care Coordination [facility], [place] Active Jeanne, CC (Confirmed) delivery(Confirmed) Active delivery(Confirmed) Active 1Not seem at [facility] since 08/12/2016. Multiple no show in our center. She is seen by other provider Dr Matt Gutierrez by pharmacy records. Social History Social History Type Response Smoking Status Never smoker entered on: 03/28/17 Sex
--- OUTSIDE RECORDS SUMMARY | 2022-03-31 18:20 | XMS_ITS | Continuity of Care Document ---
:1990 Author Organization [facility] Address [address] [place] [address], [address] [place] [phone]- Care Team Providers Name Role Phone Abdon Beard MD Primary Care Physician [place] [facility] [place]): [place] 08/21/21 [facility] [address] [place] [address], [address] [place] [id number] Allergies, Adverse Reactions, Alerts Substance Reaction Severity [...] '[id number] Note: TD4 Admin Note: unknown exact [id number] Note: unknown exact date Medications acetaminophen 325 [...] 06/18/21 9:46:00 EDT, Route to Pharmacy Electronically, [facility], Partial fill upon patient request if the prescription is for a schedule II opioid... Start Date: 06/18/21 Status: Orderedatorvastatin 40 mg oral tablet 1 tablet = 40 mg, By Mouth, Daily at bedtime, Follow-up with your primary care doctor for further refills., # 30 tablet, 1 Refills, Maintenance, 06/18/21 9:46:00 EDT, Tablet, [facility], Partial fill upon patient request if the prescript... Start Date: 06/18/21 Status: Orderedduloxetine 30 mg oral enteric coated capsule 1 capsule = 30 mg, By Mouth, 2 times a day, # 60 capsule, 0 Refills, Maintenance, 06/18/21 9:46:00 EDT, Capsule, [facility], Partial fill upon patient [...] 3 Refills, Maintenance, 11/17/20 10:19:00 EDT, Tablet, [facility]/pharmacy #[id number], Partial fillupon patient request if the prescription is for a... Start Date: 11/17/20 Status: OrderedLasix 20 mg oral tablet 20 mg, 1, tablet, By Mouth, Every other day, Follow-up with your primary care doctor for further refills., # 30 tablet, Refills 0, Tot. Refills 0, Maintenance, 07/14/21 16:27:00 EDT, Route to Pharmacy Electronically, [facility]/pharmacy #[id number], Partial fill u... Start Date: 07/14/21 Status: OrderedLevemir FlexTouch 100 units/mL subcutaneous solution = 8 units, Subcutaneous Injection, Daily at bedtime, # 10 mL, 0 Refills, Maintenance, 06/19/21 9:20:00 EDT, Injection, [facility], Partial fill upon patient request if the prescription isfor a schedule II opioid drug., 167.6, cm, ... Start Date: 06/19/21 Stop Date: 07/19/21 Status: Orderedlidocaine 5% topical film 1 patch, Topically, Daily, PRN Pain , Mild, remove after 12 hours, # 13 each, 0 Refills, Maintenance, 04/19/21 11:26:00 EST, Film, [facility]/pharmacy #[id number], Partial fill upon patient request if the prescription is for a schedule II opioid drug., 1 patch Top... Start Date: 04/19/21 Status: Orderedlisinopril 5 mg oral tablet 5 mg, 1, tablet, By Mouth, Daily, # 30 tablet, Refills 0, Tot. Refills 0, Maintenance, 07/14/21 16:28:00 EDT, Route to Pharmacy Electronically, [facility]/pharmacy #[id number], Partial fill upon patient request if [...] 0 Refills, Maintenance, 03/31/21 14:26:00 EST, Tablet, [facility]/pharmacy #[id number], Partial fill... Start Date: 03/31/21 Status: OrderedoxyCODONE 5 mg oral tablet 5 mg, 1, tablet, By Mouth, Every 6 hours, PRN, Refills 0, Tot. Refills 0, Pain , Severe Start Date: 06/09/21 Status: OrderedPen Addison, 30 G x 8 mm BD Ultra [...] Refills, Maintenance, 07/24/21 14:28:00 EDT, Chew Tablet, [facility]/pharmacy #[id number], Partial fill upon patient request if [...] 2(Confirmed)1 Active Hypertension(Confirmed) Active Care Coordination [facility], Hakan Active Angel, CC (Confirmed) delivery(Confirmed) Active delivery(Confirmed) Active 1Not seem at [facility] since 08/12/2016. Multiple no show in our center. She is seen by other provider Dr Matt Gutierrez by pharmacy records. Social History Social History Type Response Smoking Status Never (less than 100 in life time) entered on: 04/23/21 Sex
--- OUTSIDE RECORDS SUMMARY | 2022-03-31 18:20 | XMS_ITS | Continuity of Care Document ---
:1990 Author Organization [facility] Address [address] [place] [phone]- Care Team Providers Name Role Phone Abdon Beard MD Primary Care Physician Encounter [facility] [place] Date(s): 11/25/21 - 12/25/21 [facility] [address] [place] [id number] Attending Physician: AdmMichael coyle Admitting Physician: AdmtrMichael Referring Physician: Admtr, Ar8 Allergies, Adverse Reactions, [...] '[id number] Note: TD4 Admin Note: unknown exact [id number] Note: unknown exact date Medications Alcohol Pads [...] 12/13/21 14:16:00 EDT, Route to Pharmacy Electronically, [facility]/pharmacy #[id number], Partial fill upon patient request if the prescriptio... Start Date: 12/13/21 Status: OrderedCoreg 25 mg oral tablet 50 mg, 2, tablet, By Mouth, 2 times a day, # 120 tablet, Refills 0, Tot. Refills 0, Maintenance, 12/13/21 14:16:00 EDT, Route to Pharmacy Electronically, [facility]/pharmacy #[id number], Partial fill upon patient request if the [...] 12/13/21 14:16:00 EDT, Route to Pharmacy Electronically, [facility]/pharmacy #[id number], Partial fill upon patient request if the prescription is for a schedule II op... Start Date: 12/13/21 Status: OrderedLevemir FlexTouch 100 units/mL subcutaneous solution See Instructions, INJECT 8 UNITS SUBCUTANEOUSLY AT BEDTIME FOR 30 DAYS, # 15 Unknown, 0 Refills, Maintenance, 12/19/21 16:07:00 EDT, [id number], 168, cm, 12/13/21 12:57:00 EDT, Height, 90, kg, 12/13/21 11:35:00 EDT, Dry Weight Start Date: 12/19/21 Status: OrderedNIFEdipine (Eqv-Procardia XL) 90 mg oral tablet, extended release 1 tablet = 90 mg, By Mouth, Daily, # 30 tablet, 0 Refills, Maintenance, 12/13/21 14:16:00 EDT, [facility]/pharmacy #[id number], Partial fill upon patient [...] 12/13/21 14:17:00 EDT, Route to Pharmacy Electronically, [facility]/pharmacy #[id number], Partial fill upon elisa... Start Date: 12/13/21 Status: OrderedPeak Flow Meter (Adult) See Instructions, # 1 each, Maintenance, Use when wheezing or chest tightness. Call for peak flow less than 200., 08/24/21 15:17:00 EDT, Supply, 168, cm, 08/24/21 11:41:00 EDT, Height, 75.8, kg, 06/09/21 11:38:00 EDT, Dry Weight Start Date: 08/24/21 Status: OrderedPen Tanana, 30 G x 8 mm BD Ultra [...] 0 Refills, Maintenance, 08/24/21 11:43:00 EDT, Inhaler, [facility]/pharmacy #[id number], Partial fill upon patient [...] 12/13/21 14:17:00 EDT, Route to Pharmacy Electronically, [facility]/pharmacy #[id number], Partial fill upon patient request if the prescription is f... Start Date: 12/13/21 Status: OrderedTylenol Extra Strength 500 mg oral tablet 2 tablet = 1,000 mg, By Mouth, Every 4 hours, PRN for pain, # 120 tablet, 0 Refills, Maintenance, 12/13/21 14:17:00 EDT, Tablet, [facility]/pharmacy #[id number], Partial fill upon patient [...] Dr Matt Gutierrez by pharmacy records.4Managed by [id number] by PCP with Tylenol Social History Social History Type Response Smoking Status Never (less than 100 in life time) entered on: 08/22/21 Sex Patient Care team information PersonnelName: Chirag CARLSON, Abdon Address: Address: [address] [place] [address]
--- OUTSIDE RECORDS SUMMARY | 2022-03-31 18:20 | XMS_ITS | Continuity of Care Document ---
:1990 Author Organization [facility] Address [address] [place] [phone]- Care Team Providers Name Role Phone Not on Staff, PCP Primary Care Physician Unavailable Encounter [facility] Date(s): 04/23/20 - 08/21/20 [facility] [address] [place] [id number] Attending Physician: Angela Hartmann MD Admitting Physician: Angela Hartmann MD Allergies, Adverse Reactions, Alerts Substance Reaction [...] '[id number] Note: TD4 Admin Note: unknown exact [id number] Note: unknown exact date Medications aspirin 81 mg oral delayed release tablet 162 mg, 2, tablet, By Mouth, Daily, To begin taking at 12 weeks gestational age - Approx. Apr 14 2020, # 30 tablet, Refills 0, Tot. Refills 0, Maintenance, 03/05/20 14:49:00 EST, Route to Pharmacy Electronically, [facility]/pharmacy #[id number], Partial fill upo... Start Date: 03/05/20 Status: Orderedbedside commode bedside commode, See Instructions, # 1 each, Refills 0, Tot. Refills 0, Maintenance, DX DM E 11.9 using at bedside, 11/14/17 17:17:55 EDT, Compound Start Date: 11/14/17 Status: OrderedDEXCOM G6 CUSTOMS MANAGER DEXCOM G6 CUSTOMS MANAGER, See Instructions, # 1 each, Refills 0, Tot. Refills 0, Maintenance, Use to monitor blood lgucose levels [facility]: [id number] E10.9, 04/06/20 12:07:00 EST, Supply, 170, cm, 03/05/20 14:05:00 EST, Height, 82, kg, 03/05/20 14:53:00... Start Date: 04/06/20 Status: OrderedDEXCOM G6 SENSOR, 3 PACK DEXCOM G6 SENSOR, 3 PACK, See Instructions, # 3 each, Refills 3, Tot. Refills 3, Maintenance, Use tomonitor blood sugar. E10.9 [facility] [id number], 07/16/20 14:20:00 EDT, Supply Start Date: 07/16/20 Status: OrderedDEXCOM G6 TRANSMITTER DEXCOM G6 TRANSMITTER, See Instructions, # 1 each, Refills 3, Tot. Refills 3, Maintenance, DEXCOM [id number], 07/16/20 14:20:00 EDT, Supply Start Date: 07/16/20 Status: OrderedDME shower chair DME shower chair, [...] Start Date: 03/22/17 Stop Date: 09/18/17 Status: OrderedJardiance 10 mg oral tablet 1 tablet = 10 mg, By Mouth, Daily in AM, Take 1 tablet daily in the morning. E11.65, # 30 tablet, 5 Refills, Maintenance, 06/17/20 13:05:00 EDT, Tablet, [facility]/pharmacy #[id number], Partial fill upon patient request if the prescription is for a schedule II opi... Start Date: 06/17/20 Status: OrderedLevemir FlexTouch 100 units/mL subcutaneous solution See Instructions, Take 40 units once daily. E11.65, # 30 mL, 5 Refills, Maintenance, 02/18/20 16:48:00 EST, [facility]/pharmacy #[id number], Stop Lantus. Start Levemir., 170, cm, 01/08/20 13:38:00 EST, Height, 99.1, kg, 01/03/20 5:38:00 EST, Dry Weight Start Date: 02/18/20 Status: OrderedNIFEdipine 30 mg oral tablet, extended release 30 mg, 1, tablet, By Mouth, Daily, do not crush or chew, # 90 tablet, Refills 2, Tot. Refills 2, Maintenance, 03/05/20 14:48:00 EST, Route to Pharmacy Electronically, [id number], Partial [...] cm, 01/08/20 13:3... Start Date: 03/05/20 Status: Ordered Problem List Condition Effective Dates Status Health Status Informant Asthma(Confirmed) Active Blindness of right eye(Confirmed) Active Blood group A Rh(D) Active positive(Confirmed) IUFD at 20 weeks or more of Active gestation(Confirmed) Depression(Confirmed) Active Diabetes mellitus type 2(Confirmed)1 Active Hypertension(Confirmed) Active Care Coordination [facility], [place] Active Jeanne, CC (Confirmed) delivery(Confirmed) Active delivery(Confirmed) Active 1Not seem at [facility] since 08/12/2016. Multiple no show in our center. She is seen by other provider Dr Matt Gutierrez by pharmacy records. Social History Social History Type Response Smoking Status Never smoker entered on: 03/28/17 Sex
--- OUTSIDE RECORDS SUMMARY | 2022-03-31 18:20 | XMS_ITS | Continuity of Care Document ---
:1990 Author Organization [facility] Address [address] [place] [id number]- Care Team Providers Name Role Phone Abdon Beard MD Primary Care Physician [place] [facility] [place]/11/21 - 04/11/[address] [address]- Encounter Diagnosis UTI (urinary tract infection), bacterial (Final) - 04/11/21 Discharge Disposition: A-D/C Home Attending Physician: Nazario Bartholomew MD Admitting Physician: Nazario Bartholomew MD Referring Physician: Not on Staff, Referring [...] '[id number] Note: TD4 Admin Note: unknown exact [id number] Note: unknown exact date Medications amLODIPine 10 mg oral tablet 10 mg, 1, tablet, By Mouth, Daily, # 30 tablet, Refills 5, Tot. Refills 5, Maintenance, 03/31/21 14:26:00 EST, Route to Pharmacy Electronically, [facility]/pharmacy #[id number], Partial fill upon patient request ifthe prescription is for a schedule II opioid drug... Start Date: 03/31/21 Status: Orderedcephalexin monohydrate 500 mg oral capsule 1 capsule = 500 mg, By Mouth, 4 times a day, for 5 days, # 20 capsule, 0 Refills, Acute 04/16/21 19:19:00 EST, 04/11/21 19:19:00 EST, Capsule, [facility]/pharmacy #[id number], Partial fill upon patient request if the prescription is for a schedule II opioid drug.,... Start Date: 04/11/21 Stop Date: 04/16/21 Status: Orderedcephalexin monohydrate 500 mg oral capsule 1 capsule = 500 mg, By Mouth, Every 12 hours, TO START ON 03/12/21, TO PREVENT INFECTION FROM RETURNING, # 180 capsule, 0 Refills, Acute 06/10/21 15:59:00 EDT, 02/28/21 15:59:00 EST, Capsule, [facility], Partial fill upon patient request... Start Date: 02/28/21 Stop Date: 06/10/21 Status: Ordereddoxycycline monohydrate 100 mg oral tablet = 100 mg, By Mouth, Daily at bedtime, Chronic suppressive therapy. Take daily at bedtime or 6 hours after iron tablet, # 30 tablet, 1 Refills, Maintenance, 03/26/21 16:17:00 EST, Tablet, [facility]/pharmacy #[id number], Partial fill upon patient request if the pre... Start Date: 03/26/21 Status: Orderedferrous sulfate 325 mg oral tablet 1 tablet = 325 mg, By Mouth, Daily, Maintenance, 02/03/21 16:48:00 EST, Tablet, ; Start Date: 02/03/21 Status: OrderedJardiance 10 mg oral tablet 1 tablet = 10 mg, By Mouth, Daily in AM, Take 1 tablet daily in the morning. E11.65. 90-day supply.,# 90 tablet, 3 Refills, Maintenance, 11/17/20 10:19:00 EDT, Tablet, [facility]/pharmacy #[id number], Partial fillupon patient request if the prescription is for a... Start Date: 11/17/20 Status: OrderedLevemir FlexTouch 100 units/mL subcutaneous solution = 43 units, Subcutaneous Injection, Daily Start Date: 04/02/21 Status: Orderednitroglycerin 0.4 mg sublingual tablet 1 tablet = 0.4 mg, Sublingual, Every 5 minutes, PRN as needed for chest pain, not to exceed 3 doses/15 min--if pain persists, seek medical attention, # 25 tablet, 0 Refills, Maintenance, 03/31/21 14:26:00 EST, Tablet, [facility]/pharmacy #[id number], Partial fill... Start Date: 03/31/21 Status: OrderedNovoLOG FlexPen 100 units/mL subcutaneous solution See Instructions, Take 11-21 units, 3 times daily before meals. E11.65. 90-day supply., # 75 mL, 3 Refills, Maintenance, 11/17/20 10:20:00 EDT, Solution, [facility]/pharmacy #[id number], Partial fill upon patient request if the prescription is for a schedule II op... Start Date: 11/17/20 Status: OrderedoxyCODONE 5 mg oral tablet 5 mg, 1, tablet, By Mouth, Every 6 hours, PRN, Refills 0, Tot. Refills 0, Maintenance, as needed forpain, 04/02/21 16:10:00 EST, Partial fill upon patient request if the prescription is for a scheduleII opioid drug. Start Date: 04/02/21 Status: Orderedsertraline 25 mg oral tablet 1 tablet = 25 mg, By Mouth, Daily, Maintenance, 02/03/21 16:47:00 EST, Tablet, ; Start Date: 02/03/21 Status: Ordered Problem List Condition Effective Dates Status Health Status Informant Asthma(Confirmed) Active Blindness of right eye(Confirmed) Active Blood group A Rh(D) Active positive(Confirmed) IUFD at 20 weeks or more of Active gestation(Confirmed) Depression(Confirmed) Active Diabetes mellitus type 2(Confirmed)1 Active Hypertension(Confirmed) Active Care Coordination [facility], [place] Active Angel, CC (Confirmed) delivery(Confirmed) Active delivery(Confirmed) Active 1Not seem at [facility] since 08/12/2016. Multiple no show in our center. She is seen by other provider Dr Matt Gutierrez by pharmacy records. Vital Signs Most recent to oldest 1 2 3 [Reference Range]: Oxygen Saturation [94-100 %] 100 % 100 % 100 % (04/11/21 6:00 PM) (04/11/21 4:00 PM) (04/11/21 2:2 1 PM) Pulse Rate [55-90 bpm] 104 bpm 110 bpm 109 bpm *H* *H* *H* (04/11/21 6:00 PM) (04/11/21 4:00 PM) (04/11/21 2:2 1 PM) Blood Pressure [90-138/55-84 151/90 mm Hg 157/107 mm Hg 150 /95 mm Hg mm Hg] *H* *H* *H* (04/11/21 6:00 PM) (04/11/21 4:00 PM) (04/11/21 2:2 1 PM) Respiratory Rate [16-30 21 br/min 21 br/min 15 br/mi n br/min] (04/11/21 6:00 PM) (04/11/21 4:00 PM) *L* (04/11/21 2:21 PM ) Temperature [96.8-100.4 DegF] 97.6 DegF 98 DegF (04/11/21 4:00 PM) (04/11/21 12:19 PM) Mode of Delivery (Oxygen) Room air Room air Room a ir (04/11/21 6:00 PM) (04/11/21 4:00 PM) (04/11/21 2:2 1 PM) Blood pressure sites Arm, left Arm, left Arm, left (04/11/21 6:00 PM) (04/11/21 4:00 PM) (04/11/21 2:2 1 PM) Temperature Route Oral (04/11/21 12:19 PM) Social History Social History Type Response Smoking Status Never smoker entered on: 03/28/17 Sex
--- OUTSIDE RECORDS SUMMARY | 2022-03-31 18:20 | XMS_ITS | Continuity of Care Document ---
:1990 Author Organization [facility] Address [address] [place] [address]- Care Team Providers Name Role Phone Abdon Beard MD Primary Care Physician Encounter [facility] [place] Date(s): 04/20/21 - 04/21/[address] [address]- Discharge Disposition: A-D/C Home Attending Physician: Shell Hurley MD Admitting Physician: Ankush Sheridan MD Referring Physician: Not on Staff, Referring [...] '943Admin Note: TD4 Admin Note: unknown exact [id number] Note: unknown exact date Medications amLODIPine 10 mg oral tablet 10 mg, 1, tablet, By Mouth, Daily, # 30 tablet, Refills 5, Tot. Refills 5, Maintenance, 03/31/21 14:26:00 EST, Route to Pharmacy Electronically, [facility]/pharmacy #[id number], Partial fill upon patient request ifthe prescription is for a schedule II opioid drug... Start Date: 03/31/21 Status: OrderedamLODIPine 10 mg oral tablet 10 mg, Tablet, By Mouth, 04/21/21 9:00:00 EST Start Date: 04/21/21 Stop Date: 04/21/21 Status: CompletedDilaudid Inj 0.5 mg, Injection, IV Push Slowly, Every 4 hours for 3 doses/times, PRN for Pain , Severe, Routine, 04/20/21 23:17:00 EST, Stop date Limited # of times Start Date: 04/20/21 Stop Date: 04/21/21 Status: Completedferrous sulfate 325 mg oral tablet 1 tablet = 325 mg, By Mouth, Daily, Maintenance, 02/03/21 16:48:00 EST, Tablet, ; Start Date: 02/03/21 Status: OrderedJardiance 10 mg oral tablet 1 tablet = 10 mg, By Mouth, Daily in AM, Take 1 tablet daily in the morning. E11.65. 90-day supply.,# 90 tablet, 3 Refills, Maintenance, 11/17/20 10:19:00 EDT, Tablet, [facility]/pharmacy #[id number], Partial fillupon patient request if the prescription is for a... Start Date: 11/17/20 Status: OrderedLantus 100 u/ml subcutaneous solution = 40 units, Subcutaneous Injection, Daily at bedtime, # 10 mL, 0 Refills, Maintenance, 04/20/21 22:24:00 EST, Solution, Partial fill upon patient request if the prescription is for a schedule II opioiddrug. Start Date: 04/20/21 Status: Orderedlidocaine 5% topical film 1 patch, Topically, Daily, PRN Pain , Mild, remove after 12 hours, # 13 each, 0 Refills, Maintenance, 04/19/21 11:26:00 EST, Film, [facility]/pharmacy #[id number], Partial fill upon patient request if the prescription is for a schedule II opioid drug., 1 patch Top... Start Date: 04/19/21 Status: Orderednitroglycerin 0.4 mg sublingual tablet 1 tablet = 0.4 mg, Sublingual, Every 5 minutes, PRN as needed for chest pain, not to exceed 3 doses/15 min--if pain persists, seek medical attention, # 25 tablet, 0 Refills, Maintenance, 03/31/21 14:26:00 EST, Tablet, [facility]/pharmacy #[id number], Partial fill... Start Date: 03/31/21 Status: OrderedoxyCODONE 5 mg oral tablet 5 mg, 1, tablet, By Mouth, Every 6 hours, PRN, for 5 days, # 20 tablet, Refills 0, Tot. Refills 0, Acute 04/26/21 12:07:00 EST, as needed for pain, 04/21/21 12:07:00 EST, Route to Pharmacy Electronically, [facility]/pharmacy #[id number], Partial fill upon patient... Start Date: 04/21/21 Stop Date: 04/26/21 Status: Orderedsertraline 25 mg oral tablet 1 [...] type 2(Confirmed)1 Active Hypertension(Confirmed) Active Care Coordination [facility], [place] Active Jeanne, CC (Confirmed) delivery(Confirmed) Active delivery(Confirmed) Active 1Not seem at [facility] since 08/12/2016. Multiple no show in our center. She is seen by other provider Dr Matt Gutierrez by pharmacy records. Results Radiology Reports Exam Date Time Procedure Performing Provider Status 04/20/21 1:20 PM Chest 2 Views Frontal and Lat Laureen Carlos; Nicol (Verified) Notes:(Chest 2 Views Frontal and Lat) Reason For Exam: Pleuritic PainRESULT: Chest 2 Views Frontal and Lat Chest 2 Views Frontal and Lat Hx of Present Illness: Pt endorsing severe lower abd pain and L sided intermittent chest pain. Pain started 6am this morning, gotten worse since then. Pt reports dizziness and R. sided headache.; Reason: Pleuritic Pain; Clinical Question(s): Pneumothorax COMPARISON: 04/16/2021 FINDINGS: No acute cardiopulmonary process IMPRESSION: No acute abnormality. WSN: [id number] Ordering Physician: Stephen Wheeler Dictated By: Jose Manuel Darnell MD Dictated Date/Time: 04/20/21 5:45 pm Reviewed By: Jose Manuel Darnell MD Signed By: Jose Manuel Darnell MD Signed Date/Time: 04/20/21 5:45 pm Transcribed By: ALEXIS Transcribed Date/Time: 04/20/21 5:44 pm Vital Signs Most recent to oldest 1 2 3 [Reference Range]: Height 168 cm 168 cm 168 cm (04/21/21 12:54 PM) (04/21/21 7:36 AM) (04/21/21 1: 44 AM) Weight 80 kg (04/20/21 9:58 PM) Oxygen Saturation [94-100 100 % 99 % 97 % %] (04/21/21 12:54 PM) (04/21/21 7:36 AM) (04/21/21 1: 44 AM) Pulse Rate [55-90 bpm] 100 bpm 98 bpm 90 bpm *H* *H* (04/21/21 1:44 AM ) (04/21/21 12:54 PM) (04/21/21 7:36 AM) Body Mass Index 28.34 [18.5-24.99] *H* (04/20/21 9:58 PM) Blood Pressure 138/75 mm Hg 152/82 mm Hg 155/86 mm Hg [90-138/55-84 mm Hg] (04/21/21 12:54 PM) *H* *H* (04/21/21 8:43 AM) (04/21/21 7:36 AM) Respiratory Rate [16-30 20 br/min 18 br/min 18 br/mi n br/min] (04/21/21 12:54 PM) (04/21/21 10:50 AM) (04/21/21 1 0:38 AM) Temperature [96.8-100.4 98.6 DegF 97.5 DegF 98.3 Deg F DegF] (04/21/21 12:54 PM) (04/21/21 7:36 AM) (04/20/21 10 :09 PM) Mode of Delivery (Oxygen) Room air Room air Room a ir (04/21/21 12:54 PM) (04/21/21 7:36 AM) (04/21/21 1: 44 AM) Blood pressure sites Arm, left Arm, left Arm, left (04/21/21 12:54 PM) (04/21/21 7:36 AM) (04/21/21 1: 44 AM) Temperature Route Oral Oral Oral (04/21/21 12:54 PM) (04/21/21 7:36 AM) (04/21/21 1: 44 AM) Dry Weight 80 kg (04/20/21 9:58 PM) Weight Obtained Via Patient/family stated (04/20/21 9:58 PM) Dry Weight Obtained Via Patient/family stated (04/20/21 9:58 PM) Social History Social History Type Response Smoking Status Never smoker entered on: 03/28/17 Sex
--- OUTSIDE RECORDS SUMMARY | 2022-03-31 18:20 | XMS_ITS | Continuity of Care Document ---
:1990 Author Organization [facility] Address [address] [place] [id number]- Care Team Providers Name Role Phone Chirag CARLSON, Abdon Primary Care Physician Encounter [facility] Date(s): 09/01/21 - 10/07/21 [facility] [address] [place] [id number] Attending Physician: Ciro Arias MD Admitting Physician: Ciro Arias MD Allergies, Adverse Reactions, Alerts Substance Reaction [...] '943Admin Note: TD4 Admin Note: unknown exact [id number] Note: unknown exact date Medications acetaminophen 325 [...] 08/24/21 11:43:00 EDT, Route to Pharmacy Electronically, [facility]/pharmacy #[id number], Partial fill upon patient request ifthe prescription is for a schedule II opioid drug... Start Date: 08/24/21 Status: Orderedaspirin 81 mg oral delayed release tablet 2 tablet = 162 mg, By Mouth, Daily, # 90 tablet, 3 Refills, Maintenance, 10/05/21 12:28:00 EDT, CR Tablet, [facility]/pharmacy #[id number], Partial fill upon patient request if the prescription is for a schedule IIopioid drug., 168, cm, 09/29/21 14:25:00 EDT, Hei... Start Date: 10/05/21 Status: OrderedBlood Pressure Monitor See Instructions, # 1 kit, Maintenance, To test blood pressures 2 x day. Severe HTN in , 08/31/21 12:03:00 EDT, Supply Start Date: 08/31/21 Status: OrderedFreestyle Lancets See Instructions, # 600 [...] 08/24/21 11:44:00 EDT, Route to Pharmacy Electronically, [facility]/pharmacy #[id number], Partial fill u... Start Date: 08/24/21 Status: OrderedLevemir FlexTouch 100 units/mL subcutaneous solution = 8 units, Subcutaneous Injection, Daily at bedtime, # 10 mL, 0 Refills, Maintenance, 08/24/21 11:26:00 EDT, Injection, [facility]/pharmacy #[id number], Partial fill upon patient request if the prescription is for a schedule II opioid drug., 168, cm, 08/24/21 10:3... Start Date: 08/24/21 Stop Date: 09/23/21 Status: OrderedMetoprolol Tartrate 25 mg oral tablet 2 tablet = 50 mg, By Mouth, 2 times a day, # 120 each, 4 Refills, Maintenance, 09/07/21 18:00:00 EDT, Tablet, [facility]/pharmacy #[id number], Partial fill upon patient request if the prescription is for a scheduleII opioid drug., 168, cm, 09/07/21 10:41:00 EDT,... Start Date: 09/07/21 Status: Orderedmultivitamin, Multivitamins oral tablet, chewable 1 [...] Dry Weight Start Date: 08/24/21 Status: OrderedPen Hammond, 30 G x 8 mm BD Ultra [...] Refills, Maintenance, 08/24/21 11:27:00 EDT, Chew Tablet, [facility]/pharmacy #[id number], Partial fill upon patient request if the prescription is for a schedule II opioid drug., 1 tablet Chew Daily, 168, cm, 08/24/21 10:36:0... Start Date: 08/24/21 Status: OrderedProAir [...] Active Obese class I(Confirmed) Active Care Coordination [facility], [place] Active Jeanne, CC (Confirmed) Pre-existing diabetes mellitus Active affecting , antepartum(Confirmed) Poor vision(Confirmed)6 Active 1Managed by PCP. WEll controlled.2Self-manages. States currently stable. No medications.3Not seem at [facility] since 08/12/2016. Multiple no show in our center. She is seen by other provider Dr Matt Gutierrez by pharmacy records.4Managed by [id number] by PCP with [id number], states sees shadows and has blurry vision. Last eye doctor appointment was several years ago. Social History Social History Type Response Smoking Status Never (less than 100 in life time) entered on: 08/22/21 Sex
--- OUTSIDE RECORDS SUMMARY | 2022-03-31 18:20 | XMS_ITS | Continuity of Care Document ---
:1990 Author Organization [facility] Address [address] [place] [id number]- Care Team Providers Name Role Phone Brenden Guy NP Primary Care Physician [phone] Encounter [facility] Date(s): 03/21/19 - 04/26/[address] [address]- [facility] Attending Physician: Not on Staff, Attending MD Allergies, Adverse Reactions, Alerts Substance Reaction Severity Status NKA Active Immunizations Given and Recorded Vaccine Date [...] '943Admin Note: TD4 Admin Note: unknown exact [id number] Note: unknown exact date Medications bedside commode bedside commode, See Instructions, # 1 each, Refills 0, Tot. Refills 0, Maintenance, DX DM E 11.9 using at bedside, 11/14/17 17:17:55 EDT, Compound Start Date: 11/14/17 Status: OrderedDME shower chair DME shower chair, See Instructions, # 1 each, Refills 0, Tot. Refills 0, Maintenance, DM E 11.9, 11/14/17 17:17:48 EDT, Compound Start Date: 11/14/17 Status: OrderedFreestyle Lite Lancets See Instructions, # 200 each, Refills 11, Tot. Refills 11, Maintenance, Pt to check blood sugar 3 times, 07/27/16 11:58:43, E11.9, Compound Start Date: 07/27/16 Stop Date: 08/26/16 Status: OrderedFreestyle Lite Lancets See Instructions, # 200 each, Refills 5, Tot. Refills 5, Maintenance, use as directed for Type 2 Diabetes Mellitus, 03/22/17 12:03:09, Compound Start Date: 03/22/17 Stop Date: 09/18/17 Status: OrderedFreestyle Lite Monitor See Instructions, # 1 units, Refills 0, Tot. Refills 0, Maintenance, Use as directed for Type 2 Diabetes. E 11.9. TID and bedtime., 11/14/17 17:15:08 EDT, Compound Start Date: 11/14/17 Status: OrderedFreestyle Lite Test Strips See Instructions, # 200 each, Refills 11, Tot. Refills 11, Maintenance, Pt to check blood sugar 6-8 times per day as directed for diabetes in ., 07/27/16 11:58:42, Compound Start Date: 07/27/16 Stop Date: 08/26/16 Status: OrderedFreestyle Lite Test Strips See Instructions, # 200 each, Refills 5, Tot. Refills 5, Maintenance, use as directed for Type 2 Diabetes Mellitus, 03/22/17 12:02:07, Compound Start Date: 03/22/17 Stop Date: 09/18/17 Status: Orderedinsulin glargine 100 u/ml subcutaneous solution = 30 units, Subcutaneous Injection, Daily, # 10 mL, 7 Refills, Maintenance, 03/28/17 9:26:49, Solution Start Date: 03/28/17 Status: Orderedinsulin lispro 100 u/ml subcutaneous injection = 10 units, Subcutaneous Injection, 3 times a day with meals, # 10 mL, 6 Refills, Maintenance, 04/02/17 11:52:35, Solution Start Date: 04/02/17 Status: OrderedInsulin Syringe, BD Ultra-Fine 0.5 cc 31 G x 8 mm (5/16in) See Instructions, # 100 each, Refills 3, Tot. Refills 3, Maintenance, Use with humalog sliding scale. Dx: insulin dependent diabetes mellitus, 09/15/16 17:28:29, Compound Start Date: 09/15/16 Status: OrderedInsulin Syringe, BD Ultra-Fine 1 cc 31 G x 8 mm (516in) See Instructions, # 120 each, Refills 11, Tot. Refills 11, Maintenance, Use TID and bedtime with insulins, E11.9, 03/23/17 15:12:02, Compound Start Date: 03/23/17 Status: OrderedInsulin Syringe, BD Ultra-Fine 1 cc 31 G x 8 mm (516in) See Instructions, # 200 each, Refills 11, Tot. Refills 11, Maintenance, use to administer insulin 4xper day; E11.65, 08/23/16 14:08:17, Compound Start Date: 08/23/16 Status: OrderedmetFORMIN 500 mg oral tablet 1 tablet = 500 mg, By Mouth, 2 times a day, # 60 tablet, 3 Refills, Maintenance, 08/16/16 13:19:42, Tablet Start Date: 08/16/16 Stop Date: 12/14/16 Status: OrderedPrenatal Multivitamins with Folic Acid 1 mg oral tablet 1 tablet, By Mouth, Daily, # 90 tablet, 3 Refills, Maintenance, 03/28/17 13:28:30, Tablet, 1 tablet By Mouth Daily Start Date: 03/28/17 Status: Ordered Problem List Condition Effective Dates Status Health Status Informant Asthma(Confirmed) Active Blood group A Rh(D) Active positive(Confirmed) Depression(Confirmed) Active Diabetes mellitus type 2(Confirmed)1 Active Care Coordination [facility], [place] Active Jeanne, CC (Confirmed) 1Not seem at [facility] since 08/12/2016. Multiple no show in our center. She is seen by other provider Dr Matt Gutierrez by pharmacy records. Social History Social History Type Response Smoking Status Never smoker entered on: 03/28/17 Sex
--- OUTSIDE RECORDS SUMMARY | 2022-03-31 18:20 | XMS_ITS | Continuity of Care Document ---
:1990 Author Organization [facility] Address [address] [place] [address]- Care Team Providers Name Role Phone Chirag CARLSON, Abdon Primary Care Physician Encounter [facility] Date(s): 03/25/22 - 03/29/[address] [address]- Encounter Diagnosis Bilateral pleural effusion (Final) - 03/25/22 Heart failure (Final) - 03/25/22 CKD (chronic kidney disease) (Final) - 03/25/22 Discharge Disposition: A-D/C Home Attending Physician: Grisel Painter MD Admitting Physician: Reji Reid MD Referring Physician: Not on Staff, Referring [...] Status Refusal Reason influenza virus vaccine, inactivated 02/27/22 Not Given Patient Refuses influenza virus vaccine, inactivated 01/18/22 Not Given Patient Refuses influenza virus vaccine, inactivated 03/05/21 Not Given Patient Refuses 1Admin Note: VIS 03/21/11 (given)2Admin Note: hx varicella '[id number] Note: TD4 Admin Note: unknown exact [id number] Note: unknown exact date Medications Albuterol (Eqv-ProAir HFA) 90 mcg/inh inhalation aerosol 2 puffs, Inhalation, Every 4 hours, Maintenance, 03/25/22 22:43:00 EST, Partial fill upon patient request if the prescription is for a schedule II opioid drug. Start Date: 03/25/22 Status: OrderedamLODIPine 5 mg oral tablet 5 mg, 1, tablet, By Mouth, Daily, # 30 tablet, Refills 0, Tot. Refills 0, Maintenance, 03/29/22 12:12:00 EST, Route to Pharmacy Electronically, [facility]/pharmacy #[id number], Partial fill upon patient request if the prescription is for a schedule II opioid drug.... Start Date: 03/29/22 Status: OrderedamLODIPine 5 mg oral tablet 5 mg, Tablet, By Mouth, 03/29/22 9:00:00 EST Start Date: 03/29/22 Stop Date: 03/29/22 Status: CompletedAspirin Low Dose 81 mg oral delayed release tablet 2 tablet = 162 mg, By Mouth, Daily, Maintenance, 02/13/22 11:23:00 EST, CR Tablet, ; Start Date: 02/13/22 Status: OrderedCoreg 25 mg oral tablet 25 mg, 1, tablet, By Mouth, 2 times a day, # 60 tablet, Refills 0, Tot. Refills 0, Maintenance, 03/29/22 12:11:00 EST, Route to Pharmacy Electronically, [facility]/pharmacy #[id number], Partial fill upon patient request if the prescription is for a schedule II opi... Start Date: 03/29/22 Status: OrderedCoreg 25 mg oral tablet 25 mg, Tablet, By Mouth, Hold for: HR < 60, SBP < 90, 03/29/22 9:00:00 EST Start Date: 03/29/22 Stop Date: 03/29/22 Status: CompletedCrestor 5 mg oral tablet 1 tablet = 5 mg, By Mouth, Daily, # 30 tablet, 0 Refills, Maintenance, 01/19/22 13:30:00 EST, [id number] Partial fill upon patient request if the prescription is for a schedule II opioid drug., 160, cm, 01/19/22 8:55:00 EST, Height, 9... Start Date: 01/19/22 Status: OrderedDilaudid Inj 0.2 mg, Injection, IV Push Slowly, Every 4 hours, PRN for Pain , Moderate, Routine, 03/25/22 23:40:00 EST Start Date: 03/25/22 Stop Date: 03/30/22 Status: DiscontinuedFlonase 50 mcg/inh nasal spray 1 sprays, Nares, Both, 2 times a day, # 16 Gm, 0 Refills, Maintenance, 03/10/22 13:15:00 EST, [place], Partial fill upon patient request if the prescription is for a schedule IIopioid drug., 1 sprays Nares, Both 2 times a day,... Start Date: 03/10/22 Status: OrderedLevemir FlexTouch 100 units/mL subcutaneous solution = 8 units, Subcutaneous Injection, Daily at bedtime, (NOT TAKING & HASN'T IN MONTHS), # 10 mL, 0Refills, Maintenance, 03/10/22 13:13:00 EST, Injection, [facility], Partial fill upon patient request if the prescription is for a schedule... Start Date: 03/10/22 Status: OrderedNIFEdipine 30 mg oral tablet, extended release 30 mg, ER Tablet, By Mouth, 03/29/22 9:00:00 EST Start Date: 03/29/22 Stop Date: 03/29/22 Status: CompletedNIFEdipine 30 mg oral tablet, extended release 30 mg, 1, tablet, By Mouth, Daily, # 30 tablet, Refills 0, Tot. Refills 0, Maintenance, 03/10/22 13:15:00 EST, Route to Pharmacy Electronically, [facility], Partial fill upon patient request if the prescription is for a schedule II opioi... Start Date: 03/10/22 Stop Date: 04/09/22 Status: OrderedNovoLOG FlexPen 100 units/mL injectable solution 11-12 UNITS, Subcutaneous Injection, 3 times a day before meals, (NOT TAKING & HASN'T IN MONTHS), # 10 mL, 0 Refills, Maintenance, 03/10/22 13:12:00 EST, Injection, [facility], Partial fill upon patient request if the prescription is for... Start Date: 03/10/22 Status: Orderedondansetron 4 mg oral tablet 1 tablet = 4 mg, By Mouth, Every 8 hours, PRN Nausea & Vomiting, # 12 tablet, 0 Refills, Maintenance, 03/10/22 13:16:00 EST, Tablet, [facility], Partial fill upon patient request if the prescription is for a schedule II opioid drug., 170... Start Date: 03/10/22 Status: Orderedpantoprazole 40 mg oral delayed release tablet 1 tablet = 40 mg, By Mouth, Daily, # 90 tablet, 0 Refills, Maintenance, 03/10/22 13:16:00 EST, EC Tablet, 170, cm, 03/10/22 10:58:00 EST, Height, 88, kg, 02/26/22 23:01:00 EST, Dry Weight Start Date: 03/10/22 Status: OrderedPen [place], 31 G x 5 mm BD Ultra Fine III See Instructions, # 100 each, Refills 5, Tot. Refills 5, Maintenance, use as directed for Type 2 Diabetes Mellitus, 03/10/22 13:55:00 EST, Supply, 170, cm, 03/10/22 10:58:00 EST, Height, 88, kg, 02/26/22 23:01:00 EST, Dry Weight Start Date: 03/10/22 Stop Date: 09/06/22 Status: Orderedscopolamine 1 mg/72 hr transdermal film, extended release 1 film, Topically, Every 72 hours, # 4 each, 0 Refills, Maintenance, 03/10/22 13:17:00 EST, [facility], Partial fill upon patient request if the prescription is for a schedule II opioid drug., 1 film Topically Every 72 hours, 170, cm, 01... Start Date: 03/10/22 Status: Orderedtorsemide 20 mg oral tablet 1 tablet = 20 mg, By Mouth, Daily, # 30 tablet, 0 Refills, Maintenance, 03/10/22 13:14:00 EST, Tablet, [facility], Partial fill upon patient request if the prescription is for a schedule II opioid drug., 170, cm, 03/10/22 10:58:00 EST, H... Start Date: 03/10/22 Status: Ordered Problem List Condition Confirmation Course Effective Dates Status Health Stat us Informant Asthma1 Confirmed Active Blindness of right Confirmed Active eye Cardiac disease Confirmed Active during , antepartum H/O Chest pain Confirmed Active CKD (chronic kidney Confirmed Active disease), stage III CKD stage 4 due to Confirmed Active type 2 diabetes mellitus IUFD at 20 weeks or Confirmed Active more of gestation Depression2 Confirmed Active Diabetes mellitus Confirmed Active type 23 growth Confirmed Active retardation, Heart failure with Confirmed Active preserved ejection fraction, NYHA class I Hypertension4 Confirmed Active Insulin dependent Confirmed Active type 2 diabetes mellitus Migraine5 Confirmed Active Care Coordination Confirmed Active N-CP, Hakan Angel, CC 1Managed by PCP. WEll controlled.2Self-manages. States currently stable. No medications.3Not seem at [facility] since 08/12/2016. Multiple no show in our center. She is seen by other provider Dr Matt Gutierrez by pharmacy records.4Managed by [id number] by PCP with Tylenol Results Radiology Reports Exam Date Time Procedure Performing Provider Status 03/26/22 5:18 PM Abdomen AP Marlene Rajput; Auth (Verifi ed) Notes:(Abdomen AP) Reason For Exam: ConstipationRESULT: XR Abdomen AP XR Abdomen AP 1 view INDICATION/CLINICAL QUESTION: Reason: Constipation; Clinical Question(s): Obstruction COMPARISON: None FINDINGS: Mild stool retention but otherwise normal bowel gas pattern. No evidence of obstruction. No evidence of pneumoperitoneum. No organomegaly, masses or calcifications. No acute bone findings. Right upper quadrant surgical clips. IMPRESSION: Mild stool retention but otherwise normal. WSN: [id number] Ordering Physician: Dominic Ruiz Dictated By: Kaveh Chambers MD Dictated Date/Time: 03/26/22 7:33 pm Reviewed By: Kaveh Chambers MD Signed By: Kaveh Chambers MD Signed Date/Time: 03/26/22 7:33 pm Transcribed By: ALEXIS Transcribed Date/Time: 03/26/22 7:32 pm Exam Date Time Procedure Performing Provider Status 03/25/22 8:[address] Abdomen and Pelvis W/O Haylee Olivier; Auth ( Verified) Contrast Notes:(CT Abdomen and Pelvis W/O Contrast) Reason For Exam: Flank pain, kidney stone suspected;Other:RESULT: CT Abdomen and Pelvis W/O Contrast CT Abdomen and Pelvis W/O Contrast Hx of Present Illness: pt presents from home c o chest pain. pt fell twice today and is complaining of pain with inspiration. Denies thinners. Denies LOC and head strike. Pt has cardiac and renal hx. Pt states first fall was after getting dizzy and second fall was mechanical .; Reason: Other:; Flank pain, kidney stone suspected; Clinical Question(s): Calculus; Right Side flank; Order Comment: TECHNIQUE: Spiral CT through the abdomen and pelvis without IV contrast formatted in 3 planes. This study was performed without oral contrast. Weight- based protocol using automatic tube modulation was used to optimize exposure parameters. CTDIvol Body: 17.02 mGy, DLP Body: 850 mGy*cm. COMPARISON: 02/28/2022 FINDINGS: Continuing Education Specialist View Findings, Lines and Tubes: None. Visualized Chest: Persistent bilateral pleural effusions present. Diaphragm: Normal. Liver: Normal. Gallbladder: Absent consistent with prior cholecystectomy. Bile ducts: No biliary ductal dilation. Spleen: Normal. Pancreas: Normal. Adrenal glands: Normal. Kidneys and ureters: No hydronephrosis, stones, or noncontrast evidence of suspicious masses. Bladder: Normal. Reproductive organs: Unremarkable. Stomach, small bowel, and large bowel: Normal. Appendix: Normal. Peritoneum and retroperitoneum: No ascites or pneumoperitoneum. No omental or mesenteric lesions. Lymph nodes: No enlarged lymph nodes. Blood vessels: Normal. No aneurysm. Abdominal and pelvic wall: Unremarkable. Bones: No acute abnormality. IMPRESSION: Similar pleural effusions compared to previous exam. Otherwise unremarkable CT scan of the abdomen and pelvis. WSN: [id number] Ordering Physician: Sonia Johnson Dictated By: Kaveh Chambers MD Dictated Date/Time: 03/25/22 9:11 pm Reviewed By: Kaveh Chambers MD Signed By: Kaveh Chambers MD Signed Date/Time: 03/25/22 9:11 pm Transcribed By: ALEXIS Transcribed Date/Time: 03/25/22 9:05 pm Exam Date Time Procedure Performing Provider Status 03/25/22 3:21 PM Chest 2 Views Frontal and Lat Erin [facility] (Verified) Notes:(Chest 2 Views Frontal and Lat) Reason For Exam: Chest Pain;Other:RESULT: Chest 2 Views Frontal and Lat Chest 2 Views Frontal and Lat Hx of Present Illness: pt presents from home c o chest pain. pt fell twice today and is complaining of pain with inspiration. Denies thinners. Denies LOC and head strike. Pt has cardiac and renal hx. Pt states first fall was after getting dizzy and second fall was mechanical .; Reason: Other:; Chest Pain; Clinical Question(s): CHF COMPARISON: Priors, most recent dated 03/17/2022 FINDINGS: LINES AND TUBES: None. LUNGS AND PLEURA: Small bilateral layering pleural effusions present. Bilateral central vascular congestion noted with bilateral perivascular haziness and mild prominenceof the pulmonary interstitium noted. No pneumothorax. HEART, MEDIASTINUM AND EVERT: Stable enlarged cardiac silhouette. Normal mediastinal and hilar contour. BONES AND SOFT TISSUES: No acute abnormality. IMPRESSION: Layering small bilateral pleural effusions. Moderate CHF/volume edema. WSN: [id number] Ordering Physician: Sonia Johnson Dictated By: Constanza Fofana MD Dictated Date/Time: 03/25/22 3:24 pm Reviewed By: Constanza Fofana MD Signed By: Constanza Fofana MD Signed Date/Time: 03/25/22 3:24 pm Transcribed By: ALEXIS Transcribed Date/Time: 03/25/22 3:21 pm Vital Signs Most recent to oldest 1 2 3 4 [Reference Range]: Height 168 cm 168 cm 168 cm (03/29/22 10:53 AM) (03/29/22 7:18 AM) (03/29/22 3:22 AM) Weight 82.0 kg 82.0 kg 85.7 kg (03/29/22 1:11 PM) (03/29/22 6:47 AM) (03/28/22 6:14 AM) Oxygen Saturation 94 % 97 % 93 % [94-100 %] (03/29/22 10:53 AM) (03/29/22 7:18 AM) *L* (03/29/22 3:22 AM) Pulse Rate [55-90 bpm] 85 bpm 85 bpm 85 bpm (03/29/22 10:53 AM) (03/29/22 8:30 AM) (03/29/22 7:18 AM) Body Mass Index 30.97 kg/m2 31.39 kg/m2 [18.5-24.99 kg/m2] *>HHI* *>HHI* (03/26/22 9:21 AM) (03/25/22 11:03 PM) Blood Pressure 136/80 mm Hg 137/72 mm Hg 137/72 mm Hg 137/72 mm Hg [90-138/55-84 mm Hg] (03/29/22 10:53 AM) (03/29/22 8:30 AM) (03/29/22 8:3 0 AM) (03/29/22 8:30 AM) Respiratory Rate [16-30 8 br/min 18 br/min 20 br/min br/min] *L* (03/29/22 12:55 PM) (03/29/22 10:53 AM) (03/29/22 1:25 PM) Temperature [96.8-100.4 98.1 DegF 97.9 DegF 98.0 DegF DegF] (03/29/22 10:53 AM) (03/29/22 7:18 AM) (03/29/22 3:22 AM) Liters per Minute 2 L/min 2 L/min 2 L/min (03/29/22 12:20 AM) (03/28/22 8:11 PM) (03/28/22 12:00 PM) Mode of Delivery Room air Room air Room air (Oxygen) (03/29/22 10:53 AM) (03/29/22 7:18 AM) (03/29/22 3:22 AM) Blood pressure sites Arm, left Arm, right Arm, left (03/29/22 10:53 AM) (03/29/22 7:18 AM) (03/29/22 3:22 AM) Temperature Route Oral Oral Oral (03/29/22 10:53 AM) (03/29/22 7:18 AM) (03/29/22 3:22 AM) Dry Weight 87.4 kg 88.6 kg (03/26/22 9:21 AM) (03/25/22 11:03 PM) Weight Obtained Via Bed scale Bed scale Bed scale (03/29/22 6:47 AM) (03/28/22 6:14 AM) (03/27/22 5:27 AM) Social History Social History Type Response Smoking Status Never (less than 100 in life time) entered on: 08/22/21 Sex Admission evaluation note Jimbo Pillai DO: MODIFY, MODIFY, MODIFY, PERFORM, MODIFY, MODIFY, MODIFY, MODIFY Event Display: Admission Note Authored Date: [id number] Patient: ??ROWAN TAYLOR ? Age:??31 Years?Sex:??Female?:??1990?? Chief Complaint/Reason for Consultation chest pain History of Present Illness 31-year-old female past medical history of asthma, hypertension, type 2 diabetes, CKD stage IV, HFrEF 40 to 45%, history of osteomyelitis of the right foot,??legal blindness??presents to [facility] for concerns of chest pain. ?? Patient reports she woke up this morning and went to the bathroom when she had sudden onset of substernal chest pressure with associated shortness of breath. She attempted to walk to her bathroom and across the kitchen when she fell twice without head trauma or loss of consciousness. She reports the fall was not secondary to path obstruction/foot misplacement/mechanical but was due to sudden symptoms of weakness. Her symptoms lasted approximately 30-45minutes and resolved with rest. She reports compliance with her medications and denies any prior symptoms similar to this. She endorses chronic nausea, but denies new numbness, tingling, radiating symptoms, palpitations. ?? On chart review, patient was previously evaluated 8 days prior to admission for concerns of hematemesis, chest pain, and bilateral flank pain as well as recently discharged 9 days prior to admission for pain control of concerns of osteomyelitis of the left foot which did not find to have osteomyelitis on evaluation.?? She was discharged after observation and monitoring overnight with resolved symptoms. ?? Last echo 03/01/2022 reports?1) The LV systolic function is mildly reduced. The left ventricular ejection fraction is 40-50%. Cannot assess regional wall motion abnormalities due to??poor endocardial definition ??2) The left ventricular wall thickness is mildly increased. ??3) The right ventricle is moderately dilated. Right ventricular systolic??function appears preserved. ??4) The tricuspid valve is grossly normal. There is moderate to severe??tricuspid valve regurgitation (only limited assessment) ??5) There is a trace to small pericardial effusion. There is no evidence of??cardiac tamponade. ?? Vital signs on admission afebrile 98.1F, pulse 106, BP 177/99, RR 19 at 96% 2 L nasal cannula. WBC 5.4, hemoglobin 8.0, hematocrit 24.6, platelets 138. Sodium 137, potassium 3.9, chloride 106, bicarb 20, BUN 43, creatinine 3.1, glucose 166.?? Calcium 8.3.?? TSH 1.71. High-sensitivity troponin 93, 87.?? NT proBNP 35,960. COVID-negative. EKG sinus tachycardia rate 109; right bundle branch block; no significant ST changes concerning forischemia. Chest x-ray reports layering small bilateral pleural effusions; moderate CHF/volume edema. CT abdomen and pelvis reports similar pleural effusions compared to previous exam; otherwise unremarkable CT scan of the abdomen and pelvis. Review of Systems GEN:?Denies any issues with sleep, fatigue or changes in wt, fever, chills. HEENT: Denies runny nose, dry mouth,?sore throat or changes to his vision. CV: Endorses CP.??Denies??palpitations, edema or orthopnea. PULM: Endorses SOB. Denies wheezing, cough. GI: Endorses nausea and vomiting. Denies any abdominal pain, heartburn.?Denies any changes to bowel habits or stool character.?? : Denies dysuria, polyuria, or hematuria. EXT: Denies any joint pain, stiffness, numbness or tingling.?? PSYCH: Denies any depression or anxiety. Neurologic:??Endorses chronic frontotemporal headache. Denies dizziness, syncope, unilateral weakness, ataxia, numbness or tingling in the extremities. ?? All other systems reviewed and otherwise negative unless stated in HPI. Objective ? Vital Signs?? Temperature: 98.1 DegF (03/25/22 19:05:00) Temperature Route: Oral (03/25/22 19:05:00) Pulse Rate:??106 bpm??High (03/25/22 19:34:00) Respiratory Rate: 19 br/min (03/25/22 19:34:00) Systolic Blood Pressure:??177 mm Hg??High (03/25/22 19:34:00) Diastolic Blood Pressure:??99 mm Hg??High (03/25/22 19:34:00) Blood pressure sites: Arm, left (03/25/22:34:00) Mean Arterial Pressure: 125 mm Hg (03/25/22 19:34:00) Pulse Pressure: 78 mm Hg (03/25/22 19:34:00) Oxygen Saturation: 96 % (03/25/22:34:00) Liters per Minute: 2 L/min (03/25/22:34:00) Mode of Delivery (Oxygen): Nasal cannula (03/25/22 19:34:00) Early Warning Score: 4 (03/25/22 22:13:19) ? Physical Exam General: No acute distress HEENT: EOMI, mucous membranes moist CV: RRR S1 S2 present. No murmurs, gallops, rubs appreciated.+JVD. 1+ edema bilateral lower extremity. Respiratory: All reynolds clear to auscultation bilaterally. No wheezes, rales, rhonchi appreciated Abdominal: Soft, nontender. No rebound tenderness. Bowel sounds noted all four quadrants. : No suprapubic tenderness. MSK: Reproducible tenderness to palpation right midaxillary line chest wall Neuro: A&OX3. Moving upper and lower extremities. Sensation intact. Cranial nerves grossly intact except visual reynolds Psych: Affect appropriate Skin: No lesions, wounds, rashes. Assessment/Plan 31-year-old female past medical history of asthma, hypertension, type 2 diabetes, CKD stage IV, HFrEF 40 to 45%, history of osteomyelitis of the right foot,??legal blindness??presents to [facility] for concerns of chest pain. ?? Fall Chest pain Hypertensive urgency Acute on chronic systolic heart failure 40-45% EF Chronic kidney disease stage IV Patient's chest pain??of??components of typical??angina symptoms regards to duration,??onset,??substernal pressure??with associated shortness of breath.?? She does have??elevated high-sensitivity troponin of??93,??87??however this is lower??compared to prior admission??and in the setting of??hypertensive urgency, and acute??on chronic systolic heart failure??with??chronic kidney disease??stage IV,??this is likely??a demand??ischemia??and??renal clearance??rather than??acute??ACS.?? Her EKG does show??sinus tachycardia with right bundle branch block but there is no acute ST changes??concerning for?? acute ACS. No rib fractures seen on chest x-ray. Overall symptoms may be driven by hypertensive urgency. ?? 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 Type II Diabetes - Insulin sliding scale lispro and glargine 8 units in AM; hypoglycemic measures GERD - continue pantoprazole Depression - not taking home duloxetine. Follow up with PCP outpatient. ?? Code: Full DVT prophylaxis: heparin subq Diet: Cardiac 60mg CHO restriction ? Patient seen and discussed with attending physician,??MD Jimbo Clements, DO, PGY2 Histories Allergies Allergies ?(Active and Proposed Allergies Only) morphine? (Severity: Unknown severity, Onset: Unknown) ?Reactions: Itching Zosyn? (Severity: Severe, Onset: Unknown) ?Reactions: angioedema ?Comments: Tolerates cefazolin vancomycin? (Severity: Unknown severity, Onset: Unknown) ?Reactions: Tightness in throat ?Comments: Tolerates again 05/21 ?Comments: Per chart: pt tolerated vanco on 05/18/21 ? Past Medical History/Problem List Active Problems??(15) Asthma Blindness of right eye Cardiac disease during , antepartum Care Coordination [facility]-CP, Hakan Angel, CC CKD stage 4 Depression Diabetes mellitus type 2 growth retardation, Heart failure with preserved ejection fraction, NYHA class I Hypertension IUFD at 20 weeks or more of gestation Migraine ?? Past Surgical History delivery only;: 12/09/21 : 2009 D&C: 2009 Amputation left great toe Amputation left pinky toe Amputation of all right toes Repeat 2012 Cholecystectomy Amputation of right great toe Diabetic foot ulcer ? Social History Alcohol Details:??Use: Never. Employment/School Details:??Status: Disabled. Exercise Details:??Self assessment: Fair condition. ??Regular exercise: No. Home/Environment Details:??Living situation: Home with assistance. ??Lives with: Spouse. ??DCF involvement: Past. ??Other: Case closed now. Children live with their father. Patient has them on vacations. ??Feels unsafe at home: No. Nutrition/Health Details:??Diet: Diabetic. Sexual Details:??Sexually involved in last 6 months: Yes. ??Gender identity: Identifies as female. ??Preferred pronoun: She/her. Details:??Sexually involved in last 6 months: Yes. ??Gender identity: Identifies as female. Substance Abuse Details:??Use: Never. Tobacco Details:??Use: Never (less than 100 in lifetime). Electronic Cigarette/Vaping Details:??Electronic Cigarette Use: Never. ?? Family History Mother (): CAD - Coronary artery disease; Diabetes mellitus type II; Hyperlipidemia; Hypertension; Myocardial infarction; Stroke Father: Asthma; Diabetes mellitus; Hyperlipidemia; Myocardial infarction age 68 Sister: Diabetes mellitus Brother: Diabetes mellitus Son - healthy child Son - healthy child Girl - IUFD Medications Home Medications Aspirin (Aspirin Low Dose 81 mg oral delayed release tablet)?2?tab(s)?162?Milligram?By Mouth?Daily Carvedilol (carvedilol 12.5 mg oral tablet)?12.5?Milligram?1?tablet?By Mouth?2 times a day Duloxetine (duloxetine 30 mg oral enteric coated capsule)?1?capsule?30?Milligram?By Mouth?Daily Durable Medical Equipment (Pen [place], 31 G x 5 mm BD Ultra Fine III)?See Instructions?for 30?Days?use as directed for Type 2 Diabetes Mellitus Fluticasone Nasal (Flonase 50 mcg/inh nasal spray)?1?spray(s)?Nares, Both?2 times a day Insulin Aspart (NovoLOG FlexPen 100 units/mL injectable solution)?11-12 UNITS?Subcutaneous Injection?3 times a day before meals?(NOT TAKING & HASN'T IN MONTHS) Insulin Detemir (Levemir FlexTouch 100 units/mL subcutaneous solution)?8?unit(s)?Subcutaneous Injection?Daily at bedtime?(NOT TAKING & HASN'T IN MONTHS) NIFEdipine (NIFEdipine 30 mg oral tablet, extended release)?30?Milligram?1?tablet?ByMouth?Daily?for 30?Days Ondansetron (ondansetron 4 mg oral tablet)?1?tab(s)?4?Milligram?By Mouth?Every 8 hours?as needed?Nausea & Vomiting Pantoprazole (pantoprazole 40 mg oral delayed release tablet)?1?tab(s)?40?Milligram?By Mouth?Daily Rosuvastatin (Crestor 5 mg oral tablet)?1?tab(s)?5?Milligram?By Mouth?Daily Scopolamine (scopolamine 1 mg/72 hr transdermal film, extended release)?1?Film?Topically?Every 72 hours torsemide (torsemide 20 mg oral tablet)?1?tab(s)?20?Milligram?By Mouth?Daily Results Recent Labs BLOOD COUNT & DIFF WBC 5.4 k/mm3 ()?? 03/25/2022 14:38 RBC 2.94 m/mm3 (Low)?? 03/25/2022 14:38 Hgb 8.0 Gm/dL (Low)?? 03/25/2022 14:38 Hct 24.6 % (Low)?? 03/25/2022 14:38 MCV 83.7 femtoliters ()?? 03/25/2022 14:38 MCH 27.2 pg ()?? 03/25/2022 14:38 MCHC 32.5 g/dL (Low)?? 03/25/2022 14:38 Platelet Count 138 k/mm3 (Low)?? 03/25/2022 14:38 RDW-SD 45.5 femtoliters ()?? 03/25/2022 14:38 MPV 12.0 femtoliters ()?? 03/25/2022 14:38 Nucleated RBC (Automated) 0.0 #/100 WBC'S ()?? 03/25/2022 14:38 Abs. NRBC 0.0 k/mm3 ()?? 03/25/2022 14:38 Abs. Neut 3.9 k/mm3 ()?? 03/25/2022 14:38 Abs. Lymph 0.9 k/mm3 ()?? 03/25/2022 14:38 Abs. Pierce 0.4 k/mm3 ()?? 03/25/2022 14:38 Abs. Eo 0.1 k/mm3 ()?? 03/25/2022 14:38 Abs. Baso 0.0 k/mm3 ()?? 03/25/2022 14:38 Neut % 73.4 % ()?? 03/25/2022 14:38 Lymph % 15.8 % ()?? 03/25/2022 14:38 Pierce % 7.4 % ()?? 03/25/2022 14:38 Eos % 2.2 % ()?? 03/25/2022 14:38 Baso % 0.6 % ()?? 03/25/2022 14:38 Imm Gran 0.6 % ()?? 03/25/2022 14:38 Abs. Imm Gran 0.0 k/mm3 ()?? 03/25/2022 14:38 ?? CARDIAC Nt-Probnp 57899 pg/mL (High)?? 03/25/2022 14:38 High Sensitivity Troponin (HSTnT) 87 ng/L (Critical)?? 03/25/2022 18:59 ?? CHEM GENERAL Sodium 137 mmol/L ()?? 03/25/2022 14:38 Potassium 3.9 mmol/L ()?? 03/25/2022 14:38 Chloride 106 mmol/L ()?? 03/25/2022 14:38 Bicarbonate Level 20 mmol/L (Low)?? 03/25/2022 14:38 Anion Gap 11 ()?? 03/25/2022 14:38 Glucose Level 166 mg/dL (High)?? 03/25/2022 14:38 BUN 43 mg/dL (High)?? 03/25/2022 14:38 Creatinine-Blood 3.1 mg/dL (High)?? 03/25/2022 14:38 Estimated GFR Creatinine 20 ML/MIN/1.73 M2 ()?? 03/25/2022 14:38 Calcium 8.3 mg/dL (Low)?? 03/25/2022 14:38 ?? ENDOCRINE/TUMOR MARKER TSH 1.71 uIU/mL ()?? 03/25/2022 14:38 ?? HEME OTHER Hold Blue Top SPECIMEN DISCARDED AFTER 4 HOURS. ()?? 03/25/2022 14:38 ?? VIROLOGY COVID-19 by RT-PCR NEGATIVE ()?? 03/25/2022 19:02 ? Williams Bess MD: PERFORM Event Display: Admission Note Authored Date: [id number] ??Attending Attestation:?? I have seen and evaluated this patient. ?? I have discussed the case and its management with the resident and agree with the findings and plan as documented in the resident's note. ??I ??will continue to provide care to this patient till 7 AM of the admitting date. ?31-year-old female with a past medical history of hypertension, diabetes mellitus, CKD stage III, diabetic retinopathy with blindness in right eye, diabetic neuropathy, systolic congestive heart failure, anxiety, depression who did come with a complaint of left-sided chest pain in the morning time. ??She does have complaint of of ongoing nausea and vomiting??due to diabetic gastroparesis. ??He did have a fall??yesterday. ??Most likely mechanical. ??He did have a reproducibleleft-sided musculoskeletal kind of chest pain. ??She is not taking her blood pressure medications because of ongoing nausea and vomiting. ??In the ED her blood pressure was very high and she did refused p.o. medication. ??Troponins are high but flat in the setting of low creatinine clearance. ??She did have a stress test in 03/19 that was negative for any reversible perfusion defect. ??She is not fully compliant with her medication. ??Last echocardiogram in 03/20 showed ejection fraction 40 to 50%. ??Because of low ejection fraction we will hold nifedipine. ??We will optimize the diuretic treatmentas per renal function and volume status for acute on chronic systolic congestive heart failure. ??Ifher blood pressure will continue to be high then we will consider to add hydralazine and Imdur and will also look for cardiology feedback. ??Reglan was ordered one-time to improve her nausea so that she can take her p.o. medication. ??We will try to titrate her blood pressure medication. Williams Bess MD: PERFORM, MODIFY Event Display: Admission Note Authored Date: [id number] IV hydralazine is given because she continues to deny p.o. blood pressure medication.?? Williams Bess MD: PERFORM Event Display: Admission Note Authored Date: [id number] If blood pressure will continue to be high then will consider nitro drip instead of nicardipine dripbecause of low ejection fraction. EKG study Event Display: ECG 12-Lead Authored Date: [id number] Please click on pdf link to open report Event Display: ECG 12-Lead Authored Date: [id number] Ventricular Rate: 105 BPM Atrial Rate: 105 BPM P-R Interval: 146 ms QRS Duration: 142 ms Q-T Interval: 394 ms QTC Calculation(Bazett): 520 ms P Summit: 78 degrees R Summit: 10 degrees T Summit: 41 degrees Sinus tachycardia Possible Left atrial enlargement Right bundle branch block Abnormal ECG Confirmed by MAXWELL LÓPEZ ([id number]) on 03/27/2022 9:20:16 PM [place]: MAXWELL LÓPEZ Event Display: EKG Authored Date: Event Display: ECG 12-Lead Authored Date: Please click on pdf link to open report Event Display: ECG 12-Lead Authored Date: Ventricular Rate: 109 BPM Atrial Rate: 109 BPM P-R Interval: 138 ms QRS Duration: 136 ms Q-T Interval: 390 ms QTC Calculation(Bazett): 525 ms P Summit: 84 degrees R Summit: 23 degrees T Summit: 55 degrees Sinus tachycardia Possible Left atrial enlargement Right bundle branch block Abnormal ECG When compared with ECG of 25-MAR-2022 14:46, No significant change was found Confirmed by MAXWELL LÓPEZ ([id number]) on 03/27/2022 9:20:10 PM [place]: MAXWELL LÓPEZ Event Display: EKG Authored Date: Event Display: ECG 12-Lead Authored Date: Please click on pdf link to open report Event Display: ECG 12-Lead Authored Date: Ventricular Rate: 109 BPM Atrial Rate: 109 BPM P-R Interval: 148 ms QRS Duration: 134 ms Q-T Interval: 366 ms QTC Calculation(Bazett): 492 ms P Summit: 69 degrees R Summit: -7 degrees T Summit: 53 degrees Sinus tachycardia Possible Left atrial enlargement Right bundle branch block Abnormal ECG When compared with ECG of 17-MAR-2022 15:53, No significant change was found Confirmed by FABIAN WHITTINGTON MD ([id number]) on 03/26/2022 8:48:11 AM [place]: FABIAN WHITTINGTON MD Note Julia Antonio RN: PERFORM Event Display: Discharge/Transfer Note Hospital Authored Date: Nursing Discharge Note Entered On: 03/29/2022 14:19 EST Performed On: 03/29/2022 14:18 EST by Julia Antonio RN Nursing Discharge Note 2 Discharge Time : 03/30/2022 14:15 EST Discharge Level of Care at Discharge : Home/Detention/Foster Care Patient Left Unit Via : Wheelchair Patient Accompanied Off Unit with : Responsible adult DC Instructions Provided & Signed by Pt : Yes Patient Understands D/C Instructions : Yes Patient Instructions Discharge Signed : Yes Did Pt have Specialty Bed or Wound Vac : No Julia Antonio RN - 03/29/2022 14:18 ESTSurenSaroj thompson MDama: PERFORM Event Display: Discharge/Transfer Note Hospital Authored Date: Patient: ??ROWAN TAYLOR ? Age:??31 Years?Sex:??Female?:??1990?? Patient Information Discharge Location: W3 Primary Care Physician: Abdon Beard MD Admit Date/Time: 03/25/22 21:21 Discharge Disposition Discharge Disposition: Home with Home Health Discharge Diagnosis Bilateral pleural effusion (J90) CKD (chronic kidney disease) (N18.9) Heart failure (I50.9) Hypertensive emergency (I16.1) Blindness of right eye Diabetes mellitus type 2 ?? _ Discharge Medications Albuterol (Albuterol (Eqv-ProAir HFA) 90 mcg/inh inhalation aerosol)?2?puff(s)?Inhalation?Every 4 hours Amlodipine (amLODIPine 5 mg oral tablet)?5?Milligram?1?tablet?By Mouth?Daily Aspirin (Aspirin Low Dose 81 mg oral delayed release tablet)?2?tab(s)?162?Milligram?By Mouth?Daily Carvedilol (Coreg 25 mg oral tablet)?25?Milligram?1?tablet?By Mouth?2 times a day Durable Medical Equipment (Pen [place], 31 G x 5 mm BD Ultra Fine III)?See Instructions?for 30?Days?use as directed for Type 2 Diabetes Mellitus Fluticasone Nasal (Flonase 50 mcg/inh nasal spray)?1?spray(s)?Nares, Both?2 times a day Insulin Aspart (NovoLOG FlexPen 100 units/mL injectable solution)?11-12 UNITS?Subcutaneous Injection?3 times a day before meals?(NOT TAKING & HASN'T IN MONTHS) Insulin Detemir (Levemir FlexTouch 100 units/mL subcutaneous solution)?8?unit(s)?Subcutaneous Injection?Daily at bedtime?(NOT TAKING & HASN'T IN MONTHS) NIFEdipine (NIFEdipine 30 mg oral tablet, extended release)?30?Milligram?1?tablet?By Mouth?Daily?for 30?Days Ondansetron (ondansetron 4 mg oral tablet)?1?tab(s)?4?Milligram?By Mouth?Every 8 hours?as needed?Nausea & Vomiting Pantoprazole (pantoprazole 40 mg oral delayed release tablet)?1?tab(s)?40?Milligram?By Mouth?Daily Rosuvastatin (Crestor 5 mg oral tablet)?1?tab(s)?5?Milligram?By Mouth?Daily Scopolamine (scopolamine 1 mg/72 hr transdermal film, extended release)?1?Film?Topically?Every 72 hours torsemide (torsemide 20 mg oral tablet)?1?tab(s)?20?Milligram?By Mouth?Daily ? Durable Medical Equipment On Admit VNA/Hospice/Home Care: [facility] [address] [place] [phone] (02/28/22) On Admit Medical Equip Companies: [facility] [address] [facility] [phone] (03/14/22) Discharge recommendations: Home with services (03/03/22) Discharge Medical Equipment Companies: [facility] [facility] (03/16/22) Name of Agency #1: [facility] (03/16/22) Agency Toe Stripper #1: intake (03/07/22) Service Categories #1: Oxygen Therapy (03/16/22) Service Start Date and Time #1: 06/18/21 14:00:00 (06/18/21) Service Comments #1: Pulmonary Nurse arranging oxygen with [facility]; if any issues or concern with equipment please call them directly. (03/07/22) Name of Agency #2: [facility] (06/18/21) Service Categories #2: Infusion pump (06/18/21) Service Comments #2: [facility] [phone] will be providing your IV supplies. (06/18/21) Patient Going Home on Oxygen: Yes (03/07/22) Portable unit required: Yes (03/07/22) Oxygen Device used at Home: Nasal cannula (03/07/22) Ambulatory devices needed: None (03/09/22) ? Allergies Allergies ?(Active and Proposed Allergies Only) morphine? (Severity: Unknown severity, Onset: Unknown) ?Reactions: Itching Zosyn? (Severity: Severe, Onset: Unknown) ?Reactions: angioedema ?Comments: Tolerates cefazolin vancomycin? (Severity: Unknown severity, Onset: Unknown) ?Reactions: Tightness in throat ?Comments: Tolerates again 05/21 ?Comments: Per chart: pt tolerated vanco on 05/18/21 ? Future Appointments Sunday 9:00 AM EST ?? With: Billy Cooper DO Where: [facility] [address] [place] [phone]- Sunday 12:45 PM EST ?? With: Robin CARLSON, Jared Walters Where: [facility] [address] [place] [id number]- Hospital Course ?? 31-year-old female past medical history of asthma, hypertension, type 2 diabetes, CKD stage IV, HFrEF 40 to 45%, history of osteomyelitis of the right foot,??legal blindness??presents to [facility] for concerns of chest pain. ?? Chest pain Hypertensive urgency -presented with a complaint of left-sided chest pain in the morning -trops 93/87 (lower??compared to prior admission) EKG nonischemic w/ RBBB -found to have uncontrolled HTN in the setting of inability to tolerate meds/solids 2/2 nausea and vomiting -Patient was initially??on??nitro drip and nicardipine drip, blood pressures??improved and was titrated down and transition to oral medication. She is currently on amlodipine 5 mg, nifedipine 30 mg??daily??and also on Coreg 25 mg twice daily. ??With better blood pressure control. Discussed with the patient regarding??compliance with medications. Was seen by [facility] cardiology??is consulted and will arrange outpatient follow-up.? Acute on chronic systolic heart failure 40-45% EF: -Echo 03/01/22 shows EF 40-50%. ??Patient was placed on Lasix??IV for diuresis Transition back to torsemide 20 mg daily. Discussed with patient regarding??fluid restriction, daily weights and outpatient follow-up. Patient should follow-up with [facility] cardiology??outpatient,?? will??arrange for follow-up ?? FAll - awaiting PT to see ?? Persistent N&V Gastroparesis: -likely mixed picture of gastroparesis and constipation, patient had good bowel movement??after??placing on a bowel regimen. Denies any nausea vomiting or abdominal pain. Has been tolerating diet without any difficulty at this time. ?? Chronic stable medical condition Type II Diabetes -?? continue lantus Insulin GERD - continue pantoprazole Depression - not taking home duloxetine. Follow up with PCP outpatient. Chronic kidney disease stage IV: baseline creatinine around 3 ? Code: Full DVT prophylaxis: heparin sc Diet: Cardiac 60mg CHO restriction ?? Patient seen and examined on the date of service, feeling much improved, improved blood pressure. ??Awaiting PT eval??at this time. She will follow-up with PCP as outpatient in a week Follow-up with cardiology as outpatient, office to??arrange for appointment Check renal functions??in a week ?? Objective Vital Signs?? Temperature: 98.1 DegF (03/29/22 10:53:00) Temperature Route: Oral (03/29/22 10:53:00) Pulse Rate: 85 bpm (03/29/22 10:53:00) Respiratory Rate: 20 br/min (03/29/22 10:53:00) Vented: No (03/28/22 13:30:00) Systolic Blood Pressure: 136 mm Hg (03/29/22 10:53:00) Diastolic Blood Pressure: 80 mm Hg (03/29/22 10:53:00) Blood pressure sites: Arm, left (03/29/22 10:53:00) Mean Arterial Pressure: 99 mm Hg (03/29/22 10:53:00) Pulse Pressure: 56 mm Hg (03/29/22 10:53:00) Oxygen Saturation: 94 % (03/29/22 10:53:00) Liters per Minute: 2 L/min (03/29/22 00:20:00) Mode of Delivery (Oxygen): Room air (03/29/22 10:53:00) Early Warning Score: 2 (03/29/22 11:22:43) ? . Physical Exam Young female,??not in any acute distress, pleasant today denies any complaints. HEENT PERRLA, EOMI Neck supple Chest is clear to auscultation bilaterally Heart S1-S2 regular Abdomen soft nontender bowel sounds present Extremities no pedal edema pulses present bilaterally Pending Results Add On Lab Order ordered on 03/25/2022 Add On Lab Order ordered on 03/26/2022 BUN ordered on 03/27/2022 BUN ordered on 03/30/2022 CBC ordered on 03/30/2022 COVID-19 (2019 Novel Coronavirus) PCR ordered on 03/27/2022 Creatinine ordered on 03/27/2022 Creatinine ordered on 03/30/2022 Electrolytes ordered on 03/27/2022 Electrolytes ordered on 03/30/2022 Ionized Calcium ordered on 03/27/2022 Magnesium Level ordered on 03/27/2022 Phosphorus Level ordered on 03/27/2022 Follow-Up Appointments Added Follow Up ?Time Frame ?Comments Chirag CARLSON, Abdon?1 to 2 weeks Patient Instructions Make sure to take your blood pressure medications regularly. Watch daily weights,??cardiac??diabetic diet and fluid restriction to 1800 cc/day Follow-up with your primary care physician within a week further medication adjustments can be made by your PCP. Post Discharge Care Activity: Ambulate with assistance as tolerated Code Status: ?? Full Resuscitation Condition: Fair Prognosis: Fair Discharge ?home with family, ??03/29/22 12:17:00 EST Discharge Prescriptions ?ePrescribed, ??03/29/22 12:17:00 EST Home Health Face to Face ^HomeHealthFTF Results Discharge Labs BLOOD COUNT & DIFF WBC 5.8 k/mm3 ()?? 03/29/2022 08:35 RBC 3.00 m/mm3 (Low)?? 03/29/2022 08:35 Hgb 8.2 Gm/dL (Low)?? 03/29/2022 08:35 Hct 25.5 % (Low)?? 03/29/2022 08:35 MCV 85.0 femtoliters ()?? 03/29/2022 08:35 MCH 27.3 pg ()?? 03/29/2022 08:35 MCHC 32.2 g/dL (Low)?? 03/29/2022 08:35 Platelet Count 225 k/mm3 ()?? 03/29/2022 08:35 RDW-SD 48.2 femtoliters (High)?? 03/29/2022 08:35 MPV 12.2 femtoliters ()?? 03/29/2022 08:35 Nucleated RBC (Automated) 0.0 #/100 WBC'S ()?? 03/29/2022 08:35 Abs. NRBC 0.0 k/mm3 ()?? 03/29/2022 08:35 Abs. Neut 3.9 k/mm3 ()?? 03/25/2022 14:38 Abs. Lymph 0.9 k/mm3 ()?? 03/25/2022 14:38 Abs. Pierce 0.4 k/mm3 ()?? 03/25/2022 14:38 Abs. Eo 0.1 k/mm3 ()?? 03/25/2022 14:38 Abs. Baso 0.0 k/mm3 ()?? 03/25/2022 14:38 Neut % 73.4 % ()?? 03/25/2022 14:38 Lymph % 15.8 % ()?? 03/25/2022 14:38 Pierce % 7.4 % ()?? 03/25/2022 14:38 Eos % 2.2 % ()?? 03/25/2022 14:38 Baso % 0.6 % ()?? 03/25/2022 14:38 Imm Gran 0.6 % ()?? 03/25/2022 14:38 Abs. Imm Gran 0.0 k/mm3 ()?? 03/25/2022 14:38 ?? CARDIAC Nt-Probnp 94022 pg/mL (High)?? 03/25/2022 14:38 High Sensitivity Troponin (HSTnT) 87 ng/L (Critical)?? 03/25/2022 18:59 ?? CHEM GENERAL Sodium 137 mmol/L ()?? 03/29/2022 08:35 Potassium 3.5 mmol/L (Low)?? 03/29/2022 08:35 Chloride 102 mmol/L ()?? 03/29/2022 08:35 Bicarbonate Level 22 mmol/L ()?? 03/29/2022 08:35 Anion Gap 13 ()?? 03/29/2022 08:35 Glucose Level 89 mg/dL ()?? 03/29/2022 08:35 Glucose, POC 171 mg/dL (High)?? 03/29/2022 11:12 BUN 37 mg/dL (High)?? 03/29/2022 08:35 Creatinine-Blood 3.6 mg/dL (High)?? 03/29/2022 08:35 Estimated GFR Creatinine 16 ML/MIN/1.73 M2 ()?? 03/29/2022 08:35 Calcium 8.8 mg/dL ()?? 03/29/2022 08:35 ? ENDOCRINE/TUMOR MARKER TSH 1.71 uIU/mL ()?? 03/25/2022 14:38 ? HEME OTHER Hold Blue Top SPECIMEN DISCARDED AFTER 4 HOURS. ()?? 03/25/2022 14:38 ? VIROLOGY COVID-19 by RT-PCR NEGATIVE ()?? 03/25/2022 19:02 ? Microbiology ?? COVID-19 (Novel Coronavirus), Rapid PCR?? Completed?? Source: Nasal Body Site: Nose Collected Dt/Tm: 03/25/2022 18:19 Last Updated Dt/Tm: 03/25/2022 19:55 ? Imaging(s) ?CT Abdomen and Pelvis W/O Contrast ?? 03/25/2022 20:58??by Kaveh Chambers MD ?IMPRESSION: Similar pleural effusions compared to previous exam. Otherwise unremarkable CT scan of the abdomen and pelvis. ? 35??minutes spent on discharge Paco BETH, Julia Castro: PERFORM Event Display: Patient Education/Instruction Authored Date: [id number] Inpatient Adult Discharge Instructions [address] [address] Name: ROWAN TAYLOR : 1990 Visit: 03/25/2022 21:21:00 Current Date: 03/29/2022 13:03 Account: [id number] Inpatient Adult Discharge Instructions We would like to thank you for allowing us to assist you with your healthcare needs. The following includes patient education materials and information regarding your injury/illness. Our entire staff strives to provide an excellent experience for our patients and their families. PLEASE ENSURE YOU FOLLOW-UP PER THE INSTRUCTIONS BELOW! ?? YOUR OPINION IS IMPORTANT TO US! Please complete the survey you may receive by mail or email. Your feedback will be used to make improvements to the healthcare experiences of our patients and their families. Surveys are administered by [employer] ?? If further treatment with your primary care physician or another doctor is recommended, it is important for you to keep the appointment. Call your primary care physician or return to the Emergency Department immediately if your condition worsens, fails to improve, or new symptoms develop. If you need to find a doctor, you can call [facility] for a referral at [phone] or toll free at [phone]) or log in to [email or web address].. ?? You can view and manage your care through the patient portal or by using a health care calos of your choosing. [employer] is a website that allows you to securely view your medical information including your hospital discharge summary, office visit summaries, medications and follow-up visits. You can also request appointments, renew medications, and request access to your medical information using a health care calos of your choosing, or just ask a question. You can enroll at [email or web address] or register during your next office visit. You have been discharged from [facility], Patient Care Unit: W3. If you have any questions regarding these instructions after you leave, please call us and we will be happy to assist you. [facility] Your Care Team Attending Physician Grisel Painter MD Discharging Providers Madina CARLSON, Grisel Reason for Admission pt presents from home c/o chest pain. pt fell twice today and is complaining of pain with inspiration. Denies thinners. Denies LOC and head strike. Pt has cardiac and renal hx. Pt states first fall was after getting dizzy and second fall was mechanical . Your Diagnosis Bilateral pleural effusion Heart failure CKD (chronic kidney disease) Hypertensive emergency Tests Performed Below is a partial list of the tests performed during your hospitalization. You may have had other tests and procedures not included in this list. Please discuss all test results with your provider. Basic Metabolic Panel Calcium Level CBC w/ Differential COVID-19 (Novel Coronavirus), Rapid PCR Glucose Level GLUCOSE POC High??Sensitivity??Troponin T HOLD BLUE TUBE ProBNP Troponin T, High Sensitivity TSH with T4 Reflex (Adults Only) CT Abdomen and Pelvis W/O Contrast KUB XR Chest 2 Views Frontal and Lat Primary Care Provider Chirag CARLSON, Abdon Advance Directive Health Care Proxy on File Yes - Health Care Proxy Discharge Vitals Temperature: 98.1 DegF Height: 168 cm Pulse Rate: 85 bpm Weight: 82 kg Respiratory Rate: 18 br/min Body Mass Index:??30.97 kg/m2??Critical Systolic Blood Pressure: 136 mm Hg Body surface area: 2.02 Diastolic Blood Pressure: 80 mm Hg ?? Oxygen Saturation: 94 % ?? Studies Pending All tests and labs ordered during this hospital stay have been completed unless listed below. Pleasediscuss all pending results with your provider listed above in these instructions. ?? Add On Lab Order BUN CBC COVID-19 (2019 Novel Coronavirus) PCR Creatinine Electrolytes Ionized Calcium Magnesium Level Phosphorus Level What to do next Instructions From Your Doctor Make sure to take your blood pressure medications regularly. Watch daily weights,??cardiac??diabetic diet and fluid restriction to 1800 cc/day Follow-up with your primary care physician within a week further medication adjustments can be made by your PCP. Discharge Orders Activity:??Ambulate with assistance as tolerated Code Status:?? Full Resuscitation Condition:??Fair Prognosis:??Fair Scheduled Follow-Up Appointments Sunday 9:00 AM EST ?? With: Billy Cooper DO Where: [facility] [address] [place] [phone]- Sunday 12:45 PM EST ?? With: Robin CARLSON, Jared Walters Where: [facility] [address] [place] [phone]- You Need to Schedule the Following Appointments Follow Up with??Abdon Beard MD When??Within 1 to 2 weeks Where: [address] [place] [phone]- Discharge Medications ROWAN TAYLOR :1990 Visit Date:03/25/2022 Medications: Please continue your medications until treatment is completed or stopped by your provider. Medications not listed below should be discontinued. Discuss any questions related to medications with your provider. What How Much When Instructions Next Dose New Amlodipine (amLODIPine 5 mg oral tablet) 1 tab(s) Oral Daily Pickup at [facility]/pharmacy #2070 tomorrow Changed Carvedilol (Coreg 25 mg oral tablet) 1 tab(s) Oral Twice a day Pickup at [facility]/pharmacy #2070 tonight Unchanged Albuterol (Albuterol (Eqv-ProAir HFA) 90 mcg/ inh inhalation aerosol) 2 puff(s) Inhalation Every 4 hours this afternoon Unchanged Aspirin (Aspirin Low Dose 81 mg oral delayed release tablet) 2 tab(s) Oral Daily tomorrow Unchanged Durable Medical Equipment (Pen [place], 31 G x 5 mm BD Ultra Fine III) See instructions Duration: 30 Days use as directed for Type 2 Diabetes Mellitus ?? as directed Unchanged Fluticasone Nasal (Flonase 50 mcg/ inh nasal spray) 1 spray(s) Nares, Both Twice a day tonight Unchanged Insulin Aspart (NovoLOG FlexPen 100 units/ mL injectable solution) 11-12 UNITS Subcutaneous Injection 3 times a day before meals (NOT TAKING & HASN'T IN MONTHS) ?? tonight Unchanged Insulin Detemir (Levemir FlexTouch 100 units/ mL subcutaneous solution) 8 unit(s) Subcutaneous Injection Daily at Bedtime (NOT TAKING & HASN'T IN MONTHS) ?? tonight Unchanged NIFEdipine (NIFEdipine 30 mg oral tablet, extended release) 1 tab(s) Oral Daily Duration: 30 Days tomorrow Unchanged Ondansetron (ondansetron 4 mg oral tablet) 1 tab(s) Oral Every 8 hours as needed for Nausea & Vomiting as needed Unchanged Pantoprazole (pantoprazole 40 mg oral delayed release tablet) 1 tab(s) Oral Daily omorrow Unchanged Rosuvastatin (Crestor 5 mg oral tablet) 1 tab(s) Oral Daily tomorrow Unchanged Scopolamine (scopolamine 1 mg/ 72 hr transdermal film, extended release) 1 Film Topically Every 72 hours sunday Unchanged torsemide (torsemide 20 mg oral tablet) 1 tab(s) Oral Daily tomorrow Pharmacy Information [facility]/pharmacy #[id number]: [address], [place] [id number] [phone] ?? What How Much When Comments Stop Taking Duloxetine (duloxetine 30 mg oral enteric coated capsule) 1 capsule Oral Daily Test Results Below is a partial list of the most recent Laboratory test results done prior to this discharge. You may have had other tests and procedures not included in this list. Please discuss all test results with your provider. Basic Metabolic Panel (03/26/2022) ???Sodium - 136 mmol/L???Potassium - 4.4 mmol/L???Chloride - 105 mmol/L???Bicarbonate Level - 18 mmol/L???Anion Gap - 13???Glucose Level - 230 mg/dL???BUN - 41 mg/dL???Creatinine-Blood - 3.0 mg/dL???Estimated GFR Creatinine - 21 ML/MIN/1.73 M2???Calcium - 9.1 mg/dL Calcium Level (03/29/2022) ???Calcium - 8.8 mg/dL CBC w/ Differential (03/25/2022) ???WBC - 5.4 k/mm3???RBC - 2.94 m/mm3???Hgb - 8.0 Gm/dL???Hct - 24.6 %???MCV - 83.7 femtoliters???MCH - 27.2 pg???MCHC - 32.5 g/dL???Platelet Count - 138 k/mm3???RDW-SD - 45.5 femtoliters???MPV - 12.0 femtoliters???Nucleated RBC (Automated) - 0.0 #/100 WBC'S???Abs. NRBC - 0.0 k/mm3???Abs. Neut - 3.9 k/ mm3???Abs. Lymph - 0.9 k/mm3???Abs. Pierce - 0.4 k/mm3???Abs. Eo - 0.1 k/mm3???Abs. Baso - 0.0 k/mm3???Neut % - 73.4 %???Lymph % - 15.8 %???Pierce % - 7.4 %???Eos % - 2.2 %???Baso % - 0.6 %???Imm Gran - 0.6 %???Abs. Imm Gran - 0.0 k/mm3 COVID-19 (Novel Coronavirus), Rapid PCR (03/25/2022) ???COVID-19 by RT-PCR - NEGATIVE Glucose Level (03/29/2022) ???Glucose Level - 89 mg/dL GLUCOSE POC (03/29/2022) ???Glucose, POC - 171 mg/dL High??Sensitivity??Troponin T (03/25/2022) ???High Sensitivity Troponin (HSTnT) - 93 ng/L HOLD BLUE TUBE (03/25/2022) ???Hold Blue Top - SPECIMEN DISCARDED AFTER 4 HOURS. ProBNP (03/25/2022) ???Nt-Probnp - 73061 pg/mL Troponin T, High Sensitivity (03/25/2022) ???High Sensitivity Troponin (HSTnT) - 87 ng/L TSH with T4 Reflex (Adults Only) (03/25/2022) ???TSH - 1.71 uIU/mL Allergies (NKA means No Known Allergies) Zosyn??(angioedema) morphine??(Itching) vancomycin??(Tightness in throat) Problems Active Problems??(15) Asthma?? Blindness of right eye?? Cardiac disease during , antepartum?? Care Coordination [facility], Hakan Angel, CC ?? CKD (chronic kidney disease), stage III?? CKD stage 4 due to type 2 diabetes mellitus?? Depression?? Diabetes mellitus type 2?? growth retardation, ?? H/O Chest pain?? Heart failure with preserved ejection fraction, NYHA class I?? Hypertension?? Insulin dependent type 2 diabetes mellitus?? IUFD at 20 weeks or more of gestation?? Migraine?? Education Materials Below is the list of Educational Leaflet Providered with your Discharge Instructions. Taking Amlodipine?? Amlodipine Oral Tablet?? Heart Failure?? Eating Well with High Blood Pressure?? Established High Blood Pressure?? How to Take Your Blood Pressure at Home?? Understanding Pleural Effusion?? Discharge Instructions for Chronic Kidney Disease (CKD)?? Chronic Kidney Disease (CKD)?? Valuables and Belongings I fully understand and agree that [facility] accepts no responsibility for all my personal property including clothing, toilet articles, radios, jewelry, dentures, hearing aids, rings, money, or any other property that is in my possession or is brought to me after admission. I understand certain valuables may be placed in a hospital safe for a short period of time. I understand that the hospital is not liable for loss or damage due to accident, fire, or other natural occurrence while said property is in the safe. I accept full responsibility for any personal property that I keep with me, and will not hold the hospital responsible in case of loss or disappearance. I acknowledge that i have been encouraged to send valuables and belongings home. ?? No Valuables/Belongings: No valuables/belongings present Review of Valuable and Belonging List: With patient Date for Pt to Sign Valuables/Belongings: 03/28/22 13:44:00 ?? Other Discharge Information ? Pulmonary Rehab Status?? Pulmonary Rehab Discharge Status?? Respiratory Rate: 18 br/min ? Common Emergency Awareness Tips IS IT A STROKE? Act FAST and Check for these signs: FACE Does the face look uneven? ARM Does one arm drift down? SPEECH Does their speech sound strange? TIME Call at any sign of stroke ?? Heart Attack Signs Chest discomfort: Most heart attacks involve discomfort in the center of the chest and lasts more than a few minutes, or goes away and comes back. It can feel like uncomfortable pressure, squeezing, fullness or pain. Discomfort in upper body: Symptoms can include pain or discomfort in one or both arms, back, neck, jaw or stomach. Shortness of breath: With or without discomfort. Other signs: Breaking out in a cold sweat, nausea, or lightheaded. Remember, MINUTES DO MATTER. If you experience any of these heart attack warning signs, call to get immediate medical attention! ?? Smoking can increase your chances of developing chronic health problems and can cause harmful effects to other family members in your house. If you smoke, you are strongly encouraged to quit. Please call [facility] [employer] Link at [phone] or [phone] ([phone]) or log in to [email or web address] for referrals to smoking cessation programs. ?? The National Suicide Prevention Hotline is available 18/09 if you or someone you know needs to find areason to keep living. By calling 1-324-021-Waygo (3922) you'll be connected to a skilled, trained counselor at a crisis center in your area. INPATIENT DISCHARGE INSTRUCTIONS SIGNATURE FRANKY ROWAN TAYLOR Location:[facility] Registration Date and Time:03/25/2022 21:21 [facility] Primary Care Physician: Chirag CARLSON, [facility], I ROWAN TAYLOR, have received the above patient education materials/instructions and have verbalized understanding. If ambulance or transport services are being used I further acknowledge being given a choice of service. ?? If you need to contact me, please call me at this number: . Patient/Appliance Parts Counter Clerk Name: Patient/Appliance Parts Counter Clerk Signature: Relationship to Patient: Witness Name/Signature: Date: Julia Antonio RN: PERFORM Event Display: Patient Education/Instruction Authored Date: [id number] Inpatient Adult Discharge Instructions [address] [address] Name: ROWAN TAYLOR : 1990 Visit: 03/25/2022 21:21:00 Current Date: 03/29/2022 13:00 Account: [id number] Inpatient Adult Discharge Instructions We would like to thank you for allowing us to assist you with your healthcare needs. The following includes patient education materials and information regarding your injury/illness. Our entire staff strives to provide an excellent experience for our patients and their families. PLEASE ENSURE YOU FOLLOW-UP PER THE INSTRUCTIONS BELOW! ?? YOUR OPINION IS IMPORTANT TO US! Please complete the survey you may receive by mail or email. Your feedback will be used to make improvements to the healthcare experiences of our patients and their families. Surveys are administered by [employer] ?? If further treatment with your primary care physician or another doctor is recommended, it is important for you to keep the appointment. Call your primary care physician or return to the Emergency Department immediately if your condition worsens, fails to improve, or new symptoms develop. If you need to find a doctor, you can call [facility] for a referral at [phone] or toll free at [phone] or log in to [email or web address].. ?? You can view and manage your care through the patient portal or by using a health care calos of your choosing. [employer] is a website that allows you to securely view your medical information including your hospital discharge summary, office visit summaries, medications and follow-up visits. You can also request appointments, renew medications, and request access to your medical information using a health care calos of your choosing, or just ask a question. You can enroll at [email or web address] or register during your next office visit. You have been discharged from [facility], Patient Care Unit: W3. If you have any questions regarding these instructions after you leave, please call us and we will be happy to assist you. [facility] Your Care Team Attending Physician Madina CARLSON, Grisel Discharging Providers Madina CARLSON, Grsiel Reason for Admission pt presents from home c/o chest pain. pt fell twice today and is complaining of pain with inspiration. Denies thinners. Denies LOC and head strike. Pt has cardiac and renal hx. Pt states first fall was after getting dizzy and second fall was mechanical . Your Diagnosis Bilateral pleural effusion Heart failure CKD (chronic kidney disease) Hypertensive emergency Tests Performed Below is a partial list of the tests performed during your hospitalization. You may have had other tests and procedures not included in this list. Please discuss all test results with your provider. Basic Metabolic Panel Calcium Level CBC w/ Differential COVID-19 (Novel Coronavirus), Rapid PCR Glucose Level GLUCOSE POC High??Sensitivity??Troponin T HOLD BLUE TUBE ProBNP Troponin T, High Sensitivity TSH with T4 Reflex (Adults Only) CT Abdomen and Pelvis W/O Contrast KUB XR Chest 2 Views Frontal and Lat Primary Care Provider Abdon Beard MD Advance Directive Health Care Proxy on File Yes - Health Care Proxy Discharge Vitals Temperature: 98.1 DegF Height: 168 cm Pulse Rate: 85 bpm Weight: 82 kg Respiratory Rate: 18 br/min Body Mass Index:??30.97 kg/m2??Critical Systolic Blood Pressure: 136 mm Hg Body surface area: 2.02 Diastolic Blood Pressure: 80 mm Hg ?? Oxygen Saturation: 94 % ?? Studies Pending All tests and labs ordered during this hospital stay have been completed unless listed below. Pleasediscuss all pending results with your provider listed above in these instructions. ?? Add On Lab Order BUN CBC COVID-19 (2019 Novel Coronavirus) PCR Creatinine Electrolytes Ionized Calcium Magnesium Level Phosphorus Level What to do next Instructions From Your Doctor Make sure to take your blood pressure medications regularly. Watch daily weights,??cardiac??diabetic diet and fluid restriction to 1800 cc/day Follow-up with your primary care physician within a week further medication adjustments can be made by your PCP. Discharge Orders Activity:??Ambulate with assistance as tolerated Code Status:?? Full Resuscitation Condition:??Fair Prognosis:??Fair Scheduled Follow-Up Appointments Sunday 9:00 AM EST ?? With: Billy Cooper DO Where: [facility] [address] [place] [address]- Sunday 12:45 PM EST ?? With: Robin CARLSON, Jared Walters Where: [facility] [address] [place] [address]- You Need to Schedule the Following Appointments Follow Up with??Chirag CARLSON, Abdon When??Within 1 to 2 weeks Where: [address] [place] [id number]- Discharge Medications RANGEL ROWAN :1990 Visit Date:03/25/2022 Medications: Please continue your medications until treatment is completed or stopped by your provider. Medications not listed below should be discontinued. Discuss any questions related to medications with your provider. What How Much When Instructions Next Dose New Amlodipine (amLODIPine 5 mg oral tablet) 1 tab(s) Oral Daily Pickup at [facility]/pharmacy #[id number] Changed Carvedilol (Coreg 25 mg oral tablet) 1 tab(s) Oral Twice a day Pickup at [facility]/pharmacy #207 Unchanged Albuterol (Albuterol (Eqv-ProAir HFA) 90 mcg/ inh inhalation aerosol) 2 puff(s) Inhalation Every 4 hours Unchanged Aspirin (Aspirin Low Dose 81 mg oral delayed release tablet) 2 tab(s) Oral Daily Unchanged Durable Medical Equipment (Pen [place], 31 G x 5 mm BD Ultra Fine III) See instructions Duration: 30 Days use as directed for Type 2 Diabetes Mellitus ?? Unchanged Fluticasone Nasal (Flonase 50 mcg/ inh nasal spray) 1 spray(s) Nares, Both Twice a day Unchanged Insulin Aspart (NovoLOG FlexPen 100 units/ mL injectable solution) 11-12 UNITS Subcutaneous Injection 3 times a day before meals (NOT TAKING & HASN'T IN MONTHS) ?? Unchanged Insulin Detemir (Levemir FlexTouch 100 units/ mL subcutaneous solution) 8 unit(s) Subcutaneous Injection Daily at Bedtime (NOT TAKING & HASN'T IN MONTHS) ?? Unchanged NIFEdipine (NIFEdipine 30 mg oral tablet, extended release) 1 tab(s) Oral Daily Duration: 30 Days Unchanged Ondansetron (ondansetron 4 mg oral tablet) 1 tab(s) Oral Every 8 hours as needed for Nausea & Vomiting Unchanged Pantoprazole (pantoprazole 40 mg oral delayed release tablet) 1 tab(s) Oral Daily Unchanged Rosuvastatin (Crestor 5 mg oral tablet) 1 tab(s) Oral Daily Unchanged Scopolamine (scopolamine 1 mg/ 72 hr transdermal film, extended release) 1 Film Topically Every 72 hours Unchanged torsemide (torsemide 20 mg oral tablet) 1 tab(s) Oral Daily Pharmacy Information [facility]/pharmacy #[id number]: [address], [place] [id number] [phone] ?? What How Much When Comments Stop Taking Duloxetine (duloxetine 30 mg oral enteric coated capsule) 1 capsule Oral Daily Test Results Below is a partial list of the most recent Laboratory test results done prior to this discharge. You may have had other tests and procedures not included in this list. Please discuss all test results with your provider. Basic Metabolic Panel (03/26/2022) ???Sodium - 136 mmol/L???Potassium - 4.4 mmol/L???Chloride - 105 mmol/L???Bicarbonate Level - 18 mmol/L???Anion Gap - 13???Glucose Level - 230 mg/dL???BUN - 41 mg/dL???Creatinine-Blood - 3.0 mg/dL???Estimated GFR Creatinine - 21 ML/MIN/1.73 M2???Calcium - 9.1 mg/dL Calcium Level (03/29/2022) ???Calcium - 8.8 mg/dL CBC w/ Differential (03/25/2022) ???WBC - 5.4 k/mm3???RBC - 2.94 m/mm3???Hgb - 8.0 Gm/dL???Hct - 24.6 %???MCV - 83.7 femtoliters???MCH - 27.2 pg???MCHC - 32.5 g/dL???Platelet Count - 138 k/mm3???RDW-SD - 45.5 femtoliters???MPV - 12.0 femtoliters???Nucleated RBC (Automated) - 0.0 #/100 WBC'S???Abs. NRBC - 0.0 k/mm3???Abs. Neut - 3.9 k/ mm3???Abs. Lymph - 0.9 k/mm3???Abs. Pierce - 0.4 k/mm3???Abs. Eo - 0.1 k/mm3???Abs. Baso - 0.0 k/mm3???Neut % - 73.4 %???Lymph % - 15.8 %???Pierce % - 7.4 %???Eos % - 2.2 %???Baso % - 0.6 %???Imm Gran - 0.6 %???Abs. Imm Gran - 0.0 k/mm3 COVID-19 (Novel Coronavirus), Rapid PCR (03/25/2022) ???COVID-19 by RT-PCR - NEGATIVE Glucose Level (03/29/2022) ???Glucose Level - 89 mg/dL GLUCOSE POC (03/29/2022) ???Glucose, POC - 171 mg/dL High??Sensitivity??Troponin T (03/25/2022) ???High Sensitivity Troponin (HSTnT) - 93 ng/L HOLD BLUE TUBE (03/25/2022) ???Hold Blue Top - SPECIMEN DISCARDED AFTER 4 HOURS. ProBNP (03/25/2022) ???Nt-Probnp - 14341 pg/mL Troponin T, High Sensitivity (03/25/2022) ???High Sensitivity Troponin (HSTnT) - 87 ng/L TSH with T4 Reflex (Adults Only) (03/25/2022) ???TSH - 1.71 uIU/mL Allergies (NKA means No Known Allergies) Zosyn??(angioedema) morphine??(Itching) vancomycin??(Tightness in throat) Problems Active Problems??(15) Asthma?? Blindness of right eye?? Cardiac disease during , antepartum?? Care Coordination [facility], Hakan Angel, CC ?? CKD (chronic kidney disease), stage III?? CKD stage 4 due to type 2 diabetes mellitus?? Depression?? Diabetes mellitus type 2?? growth retardation, ?? H/O Chest pain?? Heart failure with preserved ejection fraction, NYHA class I?? Hypertension?? Insulin dependent type 2 diabetes mellitus?? IUFD at 20 weeks or more of gestation?? Migraine?? Education Materials Below is the list of Educational Leaflet Providered with your Discharge Instructions. Valuables and Belongings I fully understand and agree that [facility] accepts no responsibility for all my personal property including clothing, toilet articles, radios, jewelry, dentures, hearing aids, rings, money, or any other property that is in my possession or is brought to me after admission. I understand certain valuables may be placed in a hospital safe for a short period of time. I understand that the hospital is not liable for loss or damage due to accident, fire, or other natural occurrence while said property is in the safe. I accept full responsibility for any personal property that I keep with me, and will not hold the hospital responsible in case of loss or disappearance. I acknowledge that i have been encouraged to send valuables and belongings home. ?? No Valuables/Belongings: No valuables/belongings present Review of Valuable and Belonging List: With patient Date for Pt to Sign Valuables/Belongings: 03/28/22 13:44:00 ?? Other Discharge Information ? Pulmonary Rehab Status?? Pulmonary Rehab Discharge Status?? Respiratory Rate: 18 br/min ? Common Emergency Awareness Tips IS IT A STROKE? Act FAST and Check for these signs: FACE Does the face look uneven? ARM Does one arm drift down? SPEECH Does their speech sound strange? TIME Call at any sign of stroke ?? Heart Attack Signs Chest discomfort: Most heart attacks involve discomfort in the center of the chest and lasts more than a few minutes, or goes away and comes back. It can feel like uncomfortable pressure, squeezing, fullness or pain. Discomfort in upper body: Symptoms can include pain or discomfort in one or both arms, back, neck, jaw or stomach. Shortness of breath: With or without discomfort. Other signs: Breaking out in a cold sweat, nausea, or lightheaded. Remember, MINUTES DO MATTER. If you experience any of these heart attack warning signs, call to get immediate medical attention! ?? Smoking can increase your chances of developing chronic health problems and can cause harmful effects to other family members in your house. If you smoke, you are strongly encouraged to quit. Please call [facility] [employer] Link at [phone] or [phone] ([phone]) or log in to [email or web address] for referrals to smoking cessation programs. ?? The National Suicide Prevention Hotline is available 18/09 if you or someone you know needs to find areason to keep living. By calling 1-449-649-Waygo (2646) you'll be connected to a skilled, trained counselor at a crisis center in your area. INPATIENT DISCHARGE INSTRUCTIONS SIGNATURE FRANKY ROWAN TAYLOR Location:[facility] Registration Date and Time:03/25/2022 21:21 [facility] Primary Care Physician: Chirag CARLSON, [facility], I ROWAN TAYLOR, have received the above patient education materials/instructions and have verbalized understanding. If ambulance or transport services are being used I further acknowledge being given a choice of service. ?? If you need to contact me, please call me at this number: . Patient/Appliance Parts Counter Clerk Name: Patient/Appliance Parts Counter Clerk Signature: Relationship to Patient: Witness Name/Signature: Date: Julia Antonio RN: PERFORM Event Display: Patient Education Leaflets Authored Date: [id number] Taking Amlodipine ?? 24[address] Taking Amlodipine Amlodipine (xx-BO-yl-peen) is a calcium channel mohamud. It helps relax your blood vessels and get more blood and oxygen to your heart. Relaxing the blood vessels also helps lower your blood pressure and relieve any chest pain you may have. Medicine tips ??? Read the fact sheet that comes with your medicine. It tells you when and how to take it. Ask for a sheet if you don???t get one. ??? Take your medicine at the same time each day. If it upsets your stomach, take it with food or milk. ??? If you miss a dose, take it as soon as you remember, unless it's almost time for your next dose. If so, skip the missed dose. Don't take a double dose. ??? Call your healthcare provider or pharmacist if you have any questions about taking your medicine. ??? Take your medicine even if you feel well. Most people with high blood pressure don???t feelsick. ?? For your safety ??? Ask your healthcare provider or pharmacist if there are any foods or medicines you should avoid. ??? To prevent dizziness, get up slowly after sitting or lying down. ??? Don't stoptaking your medicine unless your healthcare provider tells you to. Doing so can make your condition worse. When stopping this medicine, the dose may need to be slowly decreased. ??? Tell your healthcare provider or pharmacist before taking any other prescription or iuyn-zjt-pnuyvoa medicines. This includes vitamin or mineral supplements and herbal remedies. ??? Talk to your healthcare provider or pharmacist about whether drinking alcohol is safe while taking amlodipine. ??? Be sure to refill your prescription before you run out. ??? Don't share your medicine with anyone. Make sure your medicines are stored in a place that can't be reached by children or pets. ??? Ask your healthcare provider how often you should have your blood pressure checked. ?? When to seek medical advice Call your healthcare provider right away if any of these occur: ??? You notice swelling in your ankles or feet or your skin flushes ??? You have a headache or nausea ??? You feel tired or weak ??? Youhave severe dizziness ??? You feel chest pain ??? You have trouble breathing ??? You develop a skin rash or itching ?? Last Reviewed Date: 2021 ?? [employer]. All rights reserved. This information is not intended as a substitute for professional medical care. Always follow your healthcare professional's instructions. ??Paco BETH, Julia Castro: PERFORM Event Display: Patient Education Leaflets Authored Date: [id number] Amlodipine Oral Tablet ?? [id number] Amlodipine Oral Tablet Brands: [employer] Uses This medicine is used for the following purposes: ??? angina ??? high blood pressure ??? Raynaud's disease ?? Instructions This medicine may be taken with or without food. It is very important that you take the medicine at about the same time every day. It will work bestif you do this. Keep the medicine at room temperature. Avoid heat and direct light. It is important that you keep taking each dose of this medicine on time even if you are feeling well. If you forget to take a dose on time, take it as soon as you remember. If it is almost time for thenext dose, do not take the missed dose. Return to your normal schedule. Do not take 2 doses at one time. Tell your doctor and pharmacist about all your medicines. Include prescription and ppxa-axn-ebfzdkjpyhmqfiaz, vitamins, and herbal medicines. Keep all appointments for medical exams and tests while on this medicine. ?? Cautions Do not use the medication any more than instructed. If possible, avoid using with marijuana or other medicines that can cause dizziness or drowsiness. These include allergy/cold products, muscle relaxers, sleep aids, and pain relievers. Your ability to stay alert or to react quickly may be impaired by this medicine. Do not drive or operate machinery until you know how this medicine will affect you. Please check with your doctor before drinking alcohol while on this medicine. Tell the doctor or pharmacist if you are , planning to be , or . Do not start or stop any other medicines without first speaking to your doctor or pharmacist. Do not share this medicine with anyone who has not been prescribed this medicine. ?? Side Effects The following is a list of some common side effects from this medicine. Please speak with your doctor about what you should do if you experience these or other side effects. ??? dizziness ??? swelling of the legs, feet, and hands ??? lack of energy and tiredness ??? feeling of heat or flushing ??? low blood pressure Call your doctor or get medical help right away if you notice any of these more serious side effects: ??? worsening chest pain or crushing feeling ??? fainting ??? fast or irregular heart beats ??? jawpain ??? shortness of breath A few people may have an allergic reaction to this medicine. Symptoms can include difficulty breathing, skin rash, itching, swelling, or severe dizziness. If you notice any of these symptoms, seek medical help quickly. ?? Extra Please speak with your doctor, nurse, or pharmacist if you have any questions about this medicine. ?? [email or web address] IMPORTANT NOTE: This document tells you briefly how to take your medicine, but it does not tell youall there is to know about it. Your doctor or pharmacist may give you other documents about your medicine. Please talk to them if you have any questions. Always follow their advice. There is a more complete description of this medicine available in [place]. Scan this code on your smartphone or tablet or use the web address below. You can also ask your pharmacist for a printout. If you have any questions, please ask your pharmacist. The display and use of this drug information is subject to Terms of Use. Copyright(c) 2021 [employer]. ?? [employer]. All rights reserved. This information is not intended as a substitute for professional medical care. Always follow your healthcare professional's instructions. ??Julia Antonio RN: PERFORM Event Display: Patient Education Leaflets Authored Date: [id number] Heart Failure ?? [id number] Heart Failure What is heart failure? The heart is a muscle that pumps oxygen-rich blood to all parts of the body. When you have heart failure, the heart can???t pump as well as it should. Or the heart muscle can???t relax and fill the pumping chamber with blood. Blood and fluid may back up into the lungs. This causes congestive heart failure. And it causes pulmonary edema. Some parts of the body also don???t get enough oxygen- rich blood. This means they can't work well. These problems lead to the symptoms of heart failure. ?? What causes heart failure? Heart failure may result from: ??? Heart valve disease ??? High blood pressure ??? Active infections of the heart valves or heart muscle, such as endocarditis ??? A past heart attack ??? Coronary artery disease ??? Disease of the heart muscle (cardiomyopathy) ??? Heart problems that are present at (congenital heart defects) ??? Heart rhythm problems (arrhythmias) ??? Long-term (chronic) lung disease and pulmonary embolism ??? A reaction to medicines such as those used for chemotherapy ??? Anemia and too much blood loss ??? Thyroid disorders ??? Diabetes ??? Alcohol and drug abuse ??? Certainviral infections ?? What are the symptoms of heart failure? The most common symptoms of heart failure are: ??? Shortness of breath while resting, exercising, or lying flat ??? Weight gain from water retention ??? Visible swelling of the legs.ankles, and feet from fluid buildup. Sometimes the belly (abdomen) may swell. ??? Severe tiredness (fatigue) and weakness ??? Loss of appetite, nausea, and belly pain??? Cough that doesn???t go away. It can cause blood-tinged or frothy sputum. The severity of the condition and symptoms depends on how much of the heart's pumping ability has been affected. The first step in managing heart failure symptoms is knowing your baselines or what???snormal for you. How much do you weigh? Are you gaining weight but eating the same amount? How much can you do before you feel short of breath? Do your socks and shoes fit comfortably? Knowing what???s normal for you will help you see when symptoms are getting worse. Once you know your baselines, watchfor changes daily. The symptoms of heart failure may look like other health problems. Always see your healthcare provider for a diagnosis. ?? How is heart failure diagnosed? Your healthcare provider will ask about your health history. He or she will give you a physical exam. You may need tests such as: ??? Chest X-ray. This test makes images of internal tissues, bones, and organs on film. This test shows the size and shape of your heart. Fluid in the lungs will also showup on X-ray. ??? Echocardiogram. This test is also called echo. It uses sound waves to assess the motion of the heart???s chambers and valves. The sound waves make an image on the screen as an ultrasound transducer is passed over the heart. This shows how well the heart pumps and relaxes. It also shows the thickness of the heart herbert, and if the heart is enlarged. It is one of the most useful tests because it shows a lot of information about the heart???s function. And it helps guide treatment choices. ??? Electrocardiogram (ECG). This test records the electrical activity of the heart. It shows abnormal rhythms. It can sometimes find heart muscle damage. ??? BNP testing. B-type natriuretic peptide (BNP) is a hormone released from the ventricles that occurs with heart failure. BNP levels are useful in the quick assessment of heart failure. The higher the BNP levels, the worse the heart failure. BNP is measured from a blood sample. ??? Cardiac MRI. This test uses a magnetic field to make images of the heart and its nearby tissues. It can assess how the heart muscle and valves are working. ?? How is heart failure treated??? The cause of heart failure will guide the treatment plan. If heart failure is caused by a valve problem or coronary heart disease, then you may need a procedure. This may be a percutaneous coronary intervention. Or it may be surgery. If heart failure is caused by a problem such as anemia or an infection, you may need medicine to treat this problem. Some causes of heart failure are reversible or short-term, such as in an acute infection. For many causes of heart failure there is no cure. But many forms of treatment can help with symptoms. They are listed below. Lifestyle changes These healthy habits may help with heart failure: ??? Controlling blood pressure ??? Controlling blood sugar if you have diabetes ??? Quitting smoking ??? Maintaining a healthy weight. Losing weight, if needed ??? Regular exercise ??? Limiting salt and fat in your diet ??? Not drinking alcohol or using illicit drugs ??? Getting enough rest ??? Reducing stress ??? Other important lifestyle habits include getting vaccines such as for the flu and pneumococcal pneumonia. If you have sleep problems, getting a sleep study get help find out what???s causing them. You may need to wear a C-PAP mask while you sleep. This will make sure you get enough oxygen. Too little oxygen can put stress on your heart. ?? Medicines Many types of medicines are available for heart failure. They include: ??? Angiotensin converting enzyme (CHRISTIAN) inhibitors. These lower the pressure inside the blood vessels. This reduces the pressure that the heart has to pump against. They can also help the heart have better pumping ability over time. ??? Angiotensin receptor blockers (ARB). Some people get a cough and need to stop taking CHRISTIAN inhibitors. If that happens, an ARB may work for you. These help relax blood vessels and reduce stress on the heart. ??? Angiotensin receptor- neprilysin inhibitors (ARNIs). This medicine combines an ARB and a neprilysin inhibitor. This can help the heart as noted above. And it can promote salt and water loss. ??? Sinus node I-f channel mohamud . This may be used to lower your heart rate. Then then puts less stress on your heart. ??? Diuretics. These reduce the amount of fluid in the body. They are among the most important medicines in helping control fluid buildup in the body. ??? Vasodilators. These include hydralazine and nitroglycerin. These widen (dilate) the blood vessels. They reduce the workload on the heart. ??? Digitalis. This medicine helps the heart beat stronger. It may help with controlling heart rate if there is an abnormal heart rhythm. ??? Antiarrhythmics. These help keep normal heart rhythm. ??? Beta-blockers. These reduce the heart???s tendency to beat faster. They can also help theheart pump better over time. ??? Aldosterone blockers. This blocks the effects of the hormone aldosterone. This hormone causes sodium and water retention. ??? Statins or PCSK9 inhibitors. These lower the amount of bad cholesterol in your blood. They are not used to treat heart failure. But you may take one if you have high cholesterol. Or you may take one if you have had a past heart attack and are at risk for heart failure. People who have inherited forms of high cholesterol (familial hypercholesterolemia) may get help from PCSK9 inhibitors. These medicines lower cholesterol. ??? Sodium-glucose cot ransporter-2 (SGLT2) inhibitors. These medicines are for people with heart failure with reduced ejection fraction. They block your kidneys from reabsorbing sugar from the blood. This helps your body get rid of extra salt and water and so lowers your blood pressure. Lowering your blood pressure eases the strain on your heart. Your provider may prescribe an SGLT2 inhibitor if other treatment isn???t working. ?? Heart procedures These include opening blocked arteries in the heart. This brings back blood flow to the heart muscle. It helps the ventricles squeeze as they should. The procedure can be done in the cardiac catheterization lab. It uses balloons to push plaque and blood clots out of the artery. It also uses stents tokeep the artery open. This can also be done by bypassing blockages during surgery (coronary artery bypass surgery). ?? Heart valve repair or replacement In some cases medicines can???t help heart failure caused by heart valves that are narrowed (stenosed) or leak (regurgitant). The heart valve can be repaired or replaced. This can be done as an open-heart procedure. Or it can be done by going through a small tube (catheter) that is put into an arteryor vein. ?? Pacemaker If your heart failure has also damaged your heart???s electrical wiring system, a pacemaker can be implanted. This is done to restore normal heart rate and regularity. A cardiac resynchronizing pacemaker is used when 1 of the heart wires is damaged. This is often the wire located in the left ventricle. These pacemakers use implanted left and right sided wires to restore normal timing of the heart contraction in order to improve heart function. ?? ICD (implantable cardioverter defibrillator) When heart muscle is damaged, dangerous heart circuits can form in the heart muscle. This leads to heart rhythms that can cause . An ICD is implanted in the body to sense and treat these cardiac arrest rhythms. It does this by overdrive pacing the heart rhythm. Or it sends an energy shock to theheart. ?? VAD (ventricular assist device) This device is put in the chest during a surgery. It connects to an outside motor. The motor helps pump blood from the heart to the rest of the body. VADs can allow people with advanced heart failure to improve their overall symptoms and to walk more. This can be used as a long-term treatment. Or it can be used while someone waits for a donor heart for a transplant. ?? Heart transplant In some cases, the diseased heart must be replaced with a healthy one from a donor. Talk with your healthcare providers about the risks, benefits, and possible side effects of all treatments. ? What are possible complications of heart failure? Complications of heart failure include: ??? Fluid buildup in the lungs (pulmonary edema) ??? Kidney and liver failure ??? Stroke ??? Abnormal heart rhythms ??? How daily issues affect your health Many things in your daily life impact your health. This can include transportation, money problems,housing, access to food, and child care sitter. If you can???t get to medical appointments, you may not receive the care you need. When money is tight, it may be difficult to pay for medicines. And living farfrom a grocery store can make it hard to buy healthy food. If you have concerns in any of these or other areas, talk with your healthcare team. They may know of local resources to assist you. Or they may have a staff person who can help. ? Blount points about heart failure ??? When you have heart failure, the heart can???t pump as well as it should. ??? Heart failure may result from health problems that affect the heart, such as high bloodpressure, coronary artery disease, and heart attack. ??? Some common symptoms are shortness of breath, weight gain, and visible swelling of the legs and ankles. ??? A chest X-ray can help diagnose lungcongestion. ??? Treatment varies based on the cause of heart failure. Most people are advised to make certain lifestyle changes and to take certain medicines, often for life. Procedures such as coronary intervention and surgery may be needed. ?? Next steps Tips to help you get the most from a visit to your healthcare provider: ??? Know the reason for your visit and what you want to happen. ??? Before your visit, write down questions you want answered. ??? Bring someone with you to help you ask questions and remember what your provider tells you. ??? At the visit, write down the name of a new diagnosis, and any new medicines, treatments, or tests. Also write down any new instructions your provider gives you. ??? Know why anew medicine or treatment is prescribed, and how it will help you. Also know what the side effects are. ??? Ask if your condition can be treated in other ways. ??? Know why a test or procedure is recommended and what the results could mean. ??? Know what to expect if you do not take the medicine or have the test or procedure. ??? If you have a follow-up appointment, write down the date, time, and purpose for that visit. ??? Know how you can contact your provider if you have questions. ?? Last Reviewed Date: 2020 ?? 2111-8210 [employer]. All rights reserved. This information is not intended as a substitute for professional medical care. Always follow your healthcare professional's instructions. ?? Event Display: Cardiac Rhythm Strips Authored Date: SPowerscgibson , CIS S: TRANSCRITOBY Fofana MD Constanza: VERIFY Event Display: Result: Authored Date: [id number] Chest 2 Views Frontal and Lat Hx of Present Illness: pt presents from home c o chest pain. pt fell twice today and is complaining of pain with inspiration. Denies thinners. Denies LOC and head strike. Pt has cardiac and renal hx. Pt states first fall was after getting dizzy and second fall was mechanical .; Reason: Other:; Chest Pain; Clinical Question(s): CHF COMPARISON: [facility], most recent dated 03/17/2022 FINDINGS: LINES AND TUBES: None. LUNGS AND PLEURA: Small bilateral layering pleural effusions present. Bilateral central vascular congestion noted with bilateral perivascular haziness and mild prominenceof the pulmonary interstitium noted. No pneumothorax. HEART, MEDIASTINUM AND EVERT: Stable enlarged cardiac silhouette. Normal mediastinal and hilar contour. BONES AND SOFT TISSUES: No acute abnormality. IMPRESSION: Layering small bilateral pleural effusions. Moderate CHF/volume edema. WSN: [id number] Ordering Physician: Sonia Johnson Dictated By: Constanza Fofana MD Dictated Date/Time: 03/25/22 3:24 pm Reviewed By: Constanza Fofana MD Signed By: Constanza Fofana MD Signed Date/Time: 03/25/22 3:24 pm Transcribed By: ALEXIS Transcribed Date/Time: 03/25/22 3:21 pm Hospital Progress note Jody Carlson RN: PERFORM, SIGN, VERIFY Event Display: Progress Note Hospital Authored Date: [id number] Patient: ROWAN TAYLOR Age: 31 years Sex: Female : 1990 Associated Diagnoses: None Author: Jody Carlson RN Findings Problem Related to Alteration in Cardiac Function (new) : Alteration in Cardiac Function/new 03/28/2022 14:32 EST Alteration in Cardiac Status Related to ACS, Heart failure, Hypertension Goals & Outcomes, Cardiac Status Pt will resume/maintain adequate cardiac output, Pt will resume/maintain adequate hemodynamic status, Pt will resume/maintain adequate respiratory function, Pt will resume/maintain intact neuro function, Pt will maintain adequate GI/ function appropriate for pt,Pt will maintain adequate nutrition status, Pt/caregiver will state understanding of diagnosis, Pt/caregiver will state strategies to reduce risk factors Cardiac Interventions Implemented Assess/monitor cardiac status, Assess/monitor neuro status, Assess/monitor respiratory status, Document & Monitor O2 Sats; Administer O2 as ordered, Ensure adequate caloric intake, Teach/encourage deep breath & cough exercises BH Goals/Interventions, Cardiac Yes Cardiac, Problem Start 03/26/2022 14:49 Reviewed Plan with, Cardiac Status Patient Patient Progression, Cardiac Status Patient progressing according to plan . Evaluation Pt. arrived as transfer from [facility]. A+Ox3, legally blind. C/O 6/10 right sided pain, prn Dilaudid administered with positive effect. Placed on tele per order, NSR. Respirations even and steady on RA, reports SOB with exertion. Refused suppository stating she had BM yesterday. Voids in the bathroom. Please see [facility] for full assessment. OOB with 1 assist. Oriented to room and call STRATUSCORE system. Call STRATUSCOREwithin reach, fall precautions taken, safety maintained..Miko PEREZ, Lindy Funez: PERFORM Event Display: Progress Note Hospital Authored Date: Patient: ??ROWAN TAYLOR ? Age:??31 Years?Sex:??Female?:??1990?? Subjective pt doing better today, still feeling tired and fatigued having bowel movements, tolerating solids without any further nausea or vomiting blood pressures still elevated however, not requiring any further nitro or nicardipine drips Home Amlodipine and nifedipine added back to regimen no chest pain or sob, stable on baseline home 02 Review of Systems Constitutional: No fever, chills, night sweats, feeling tired and fatigued Respiratory: No hypoxia, no resp distress, no sob Cardiovascular: No complaints of chest pain or palpitations Gastrointestinal: No abdominal pain, diarrhea or constipation Musculoskeletal: No complaint of bone pain or decreased range of motion, no back pain ?? Objective Vital Signs?? Temperature: 97.7 DegF (03/28/22 06:00:00) Temperature Route: Oral (03/28/22 06:00:00) Pulse Rate: 88 bpm (03/28/22 07:20:00) Heart Rate Monitored: 82 bpm (03/28/22 10:58:00) Respiratory Rate: 18 br/min (03/28/22 10:41:00) Vented: No (03/28/22 10:58:00) Systolic Blood Pressure:??162 mm Hg??High (03/28/22 10:58:00) Diastolic Blood Pressure:??97 mm Hg??High (03/28/22 10:58:00) Blood pressure sites: Arm, left (03/28/22 07:07:00) Mean Arterial Pressure: 121 mm Hg (03/28/22 07:07:00) Pulse Pressure: 65 mm Hg (03/28/22 10:58:00) Oxygen Saturation: 97 % (03/28/22 10:58:00) Liters per Minute: 2 L/min (03/27/22 11:30:00) Mode of Delivery (Oxygen): Room air (03/28/22 10:58:00) Early Warning Score: 2 (03/28/22 10:58:30) ? Intake/Output? 03/25 21:21 03/28 07:00 03/27 07:00 03/26 07:00 03/25 07:00 ?? 03/28 11:11 03/28 11:11 03/28 06:59 03/27 06:59 03/26 06:59 Intake ? 1452.7 ?360 ?645 ?447.7 ?0 Output ? 3875 ?0 ? 1475 ? 2400 ?0 Net Total ?-2422.3 ?360 ? -830 ?-1952.3 ?0 ? Urine Count ?2 ?0 ?2 ?0 ?0 Emesis Count ?1 ?0 ?0 ?1 ?0 ? Physical Exam GENERAL: lying comfortably in bed, in no acute distress. HEENT: Moist oral mucosa. Atraumatic, normocephalic. PERRL, EOM grossly intact, nonicteric. NECK: Supple, trachea midline. No JVD HEART: S1S2, heart rate regular, no murmurs/heaves/rubs/gallops CHEST: CTA, no wheezes, no rales ABDOMEN: Soft, non-tender to palpation without rebound or guarding. Bowel sounds present. EXTREMITIES: no edema, VOGT, 2+ radial, 2+ dorsalis pedis pulses NEUROLOGIC: A/O x3, CN grossly intact. No focal weakness? _ Inpatient Medications Medications (32) Active SCHEDULED: (17) Amlodipine 5 mg Tablet (amLODIPine 5 mg oral tablet) ??5 mg, By Mouth, Daily Aspirin 81 mg EC Tablet (aspirin 81 mg oral delayed release tablet) ??81 mg, By Mouth, Daily Carvedilol 25 mg Tablet (Coreg 25 mg oral tablet) ??25 mg, By Mouth, 2 times a day Fluticasone Propionate 50mcg/inh Nasal [place] (Flonase 50 mcg/inh nasal spray) ??50 mcg 1 sprays, Nares, Both, 2 times a day Furosemide Inj (Lasix ??Inj) ??40 mg 4 mL, IV Push Slowly, 2 times a day Glycerin Adult Suppository (Glycerin Adult Supp) ??1 supp, Rectally, 3 times a day Heparin 5000 units/mL Inj (1 mL) (Heparin Inj) ??5,000 units 1 mL, Subcutaneous Injection, 3 times aday Insulin Glargine 100 units/mL Inj (Insulin Glargine Inj) ??6 units 0.06 mL, Subcutaneous Injection, Daily in AM Insulin Lispro 100 units/mL Inj (3mL) (Insulin LISPRO Sliding Scale) ??2-10 units, Subcutaneous Injection, 3 times a day before meals Lidocaine 5% Topical Patch (Lidocaine 5% Patch) ??1 each, Topically, Daily NaCl 0.9% Flush 3ml (NaCL 0.9% Flush) ??3 mL, IV Push, Every 8 hours NIFEdipine 30 mg ER Tablet (NIFEdipine 30 mg oral tablet, extended release) ??30 mg, By Mouth, Daily Pantoprazole 40 mg Inj (Protonix Inj) ??40 mg, IV Push Slowly, Daily Remove Patch (Remove ??Patch) ??1 each, Topically, Every 72 hours Remove Patch (Remove Lidocaine Patch) ??1 each, Topically, Daily at bedtime Rosuvastatin 5 mg Tablet (Crestor 5 mg oral tablet) ??5 mg, By Mouth, Daily Scopolamine 1 mg Patch ??1 mg 1 each, Topically, Every 72 hours CONTINUOUS: (0) PRN: (15) Acetaminophen 325 mg Tablet (Acetaminophen Tablet) ??650 mg, By Mouth, Every 4 hours Albuterol 90mcg/Inhalation Inhaler HFA (albuterol CFC free 90 mcg/inh inhalation aerosol) ??180 mcg 2 puffs, Inhalation, Every 4 hours Dextromethorphan-Guaifenesin 20 mg-200 mg/10 mL Liqu UD (Robitussin DM Liquid) ??10 mL, By Mouth, Every 4 hours Dextrose Inj Syringe (Dextrose 50% Inj Syringe (25Gm)) ??12.5 Gm, IV Push Slowly, Every 20 minutes Dextrose Inj Syringe (Dextrose 50% Inj Syringe (25Gm)) ??25 Gm, IV Push Slowly, Every 15 minutes diphenhydrAMINE 50 mg/mL Inj (DiphenhydrAMINE Inj) ??25 mg 0.5 mL, IV Push, 3 times a day Glucose 40% Gel (15 Gm) (Glucose Gel) ??15 Gm, By Mouth, Every 20 minutes Glucose 40% Gel (15 Gm) (Glucose Gel) ??30 Gm, By Mouth, Every 20 minutes HYDROmorphone 0.5 mg/0.5 mL Inj Syringe (Dilaudid Inj) ??0.2 mg 0.2 mL, IV Push Slowly, Every 4 hours Lorazepam 2 mg Inj Syringe (Ativan Inj) ??0.5 mg, IV Push Slowly, Every 6 hours Melatonin 3 mg Tablet (Melatonin Tablet) ??3 mg, By Mouth, Daily at bedtime NaCl 0.9% Flush 3ml (NaCL 0.9% Flush) ??3 mL, IV Push, Every 8 hours Polyethylene Glycol 17 Gm Powder (MiraLax Powder) ??17 Gm 1 pack/packet, By Mouth, Daily Senna 8.6 mg / Docusate 50 mg tablet (Docusate/Senna Tablet) ??1 tablet, By Mouth, 2 times a day Simethicone 80 mg Chewable Tablet (Simethicone Tablet) ??80 mg, Chew, 3 times a day ? Results Recent Labs CHEM GENERAL Glucose, POC 82 mg/dL ()?? 03/28/2022 07:38 ? Assessment/Plan 31-year-old female past medical history of asthma, hypertension, type 2 diabetes, CKD stage IV, HFrEF 40 to 45%, history of osteomyelitis of the right foot,??legal blindness??presents to [facility] for concerns of chest pain. ?? Chest pain Hypertensive urgency -presented with a complaint of left-sided chest pain in the morning -trops 93/87 (lower??compared to prior admission) EKG nonischemic w/ RBBB -found to have uncontrolled HTN in the setting of inability to tolerate meds/solids 2/2 nausea and vomiting -weaned off nitro drip and nicardipine drip, blood pressures still elevated in the 160's-170's systolic -Continue home meds Amlodipine 5 mg daily, Nifedipine ER 30 mg daily,??carvedilol 25mg BID, aspirin 81mg, rosuvastatin 5mg -PRN IV Labetolol -Appreciate [facility] cardi[place] recommendations--->team to arrange OP FU -pt will need script for BP cuff at discharge for self monitoring ?? Acute on chronic systolic heart failure 40-45% EF: -Echo 03/01/22 shows EF 40-50% -Cont lasix 40mg IV??BID--->complete PM dose and transition pt back to her home Torsemide in am -daily weights, I/O -[facility] cardiology signed off today--->they will arrange OP FU ?? Fall: -fall prior to admission -PRN dilaudid 0.2 mg IV for pain -PT eval/tx ?? Persistent N&V Gastroparesis: -likely mixed picture of gastroparesis and constipation -did not have BM for a long time, passing flatus, no passing stool with no further nausea and tolerating solids -KUB xray--->mild stool retention -daily abd exam -Zofran/reglan/diphenhydramine IV for N&V.Monitor QTc. -bowel regimen -OP FU for gastroparesis ?? Chronic stable medical condition Type II Diabetes - ISS adjusted,??lantus decreased from 8 units to 6 units as blood sugars running low GERD - continue pantoprazole Depression - not taking home duloxetine. Follow up with PCP outpatient. Chronic kidney disease stage IV: baseline creatinine around 3 ? Code: Full DVT prophylaxis: heparin sc Diet: Cardiac 60mg CHO restriction Disposition: pending clinical progress, anticipate possible dc in am if she continues to clinically improve, await PT eval/tx +/-VNA ?? OMN:??ongoing htn and CHF ?? Anuradha Frank: PERFORM, SIGN, VERIFY Event Display: Progress Note Hospital Authored Date: [id number] Patient: ROWAN TAYLOR Age: 31 years Sex: Female : 1990 Associated Diagnoses: None Author: Anuradha Frank Findings Problem Related to Alteration in Cardiac Function (new) : Alteration in Cardiac Function/new 03/28/2022 8:00 EST Alteration in Cardiac Status Related to ACS, Heart failure, Hypertension Goals & Outcomes, Cardiac Status Pt will resume/maintain adequate cardiac output, Pt will resume/maintain adequate hemodynamic status, Pt will resume/maintain adequate respiratory function, Pt will resume/maintain intact neuro function, Pt will maintain adequate GI/ function appropriate for pt,Pt will maintain adequate nutrition status, Pt/caregiver will state understanding of diagnosis, Pt/caregiver will state strategies to reduce risk factors Cardiac Interventions Implemented Assess/monitor cardiac status, Assess/monitor neuro status, Assess/monitor respiratory status, Assess for tolerance of IV infusions; verify rate & dose, Call/Report variances in ECG to provider, Document & Monitor O2 Sats; Administer O2 as ordered, Ensure adequate caloric intake, If no bowel movement in 3 days activate bowel regime, Monitor & document daily weight, Monitor anticoagulation values, Monitor ECG w/administration of antiarrhythmics (CO 13.420), Obtain 12 Lead ECG and CXR as ordered, Prep pt for treatments & procedures, Teach/encourage deep breath & cough exercises, Teach/encourage use of incentive spirometer, Team conversation regarding appropriate level of care, Turn & reposition Q2 hours per activity restrictions, Use adjunctive therapies per Standards of Practice Goals/Interventions, Cardiac Yes Cardiac, Problem Start 03/26/2022 14:49 Reviewed Plan with, Cardiac Status Patient Patient Progression, Cardiac Status Patient progressing according to plan . Alteration in Gastrointestinal : Alteration in Gastrointestinal Func/new 03/28/2022 8:00 EST Alteration in GI status Related to Other: constipation; patient has not had BM since last month Goals & Outcomes, Gastrointestinal Establish a regular pattern of elimination for pt, Nutritional intake is adequate for metabolic needs, Pt will achieve normal/improved fluid balance, Pt will have a bowel movement prior to discharge, Pt will maintain adequate GI function appropriate for pt, Pt will maintain normal elimination patterns, Pt will resume/maintain adequate hemodynamic status, Pt will tolerate age appropriate diet prior to discharge, Resolved problem, Goals/Outcomes met Interventions, Gastrointestinal Assess/monitor abdomen for distention, tenderness, Assess/monitor abdominal girth & bowel function, Assess/monitor bowel pattern, bowel sounds, flatus, Assess/monitor number of bowel movements, Assess/monitor color, quantity, quality, consistency of stoo, Assess/monitor pt for nausea, vomiting, Assess/monitor effects of re-hydration, Assess/monitor intake & output, Assess if pt tolerating diet, Collaborate/Consult with Customer Relations Specialist; review recommendations, DVT prophylaxis as ordered, Elevate HOB to facilitate lung expansion, prevent aspiration, Establish toileting schedule for patient, Taking PO: Encourage/monitor intake & swallowing ability, Provide info on community resources for education, support, Teach Pt/caregiver diet & give copy of dietary instructions, Teach Pt/caregiver on bowel elimination interventions, Teach Pt/caregiver re: importance of bowel regime, Teach Pt/caregiver re: nutritional intake & dietary restrict, Teach/encourage deep breath & cough exercises, Teach/encourage use of incentive spirometer Goals/Interventions, Gastrointestinal Yes Gastrointestinal, Problem Start 03/26/2022 14:48 Reviewed plan with, Gastrointestinal Patient Patient Progression, Gastrointestinal Pt progressing according to plan . Narrative/Incidental patient downgraded to acute care w tele. SR-ST. Remains hypertensive this AM nifedipine added, spokew PAINT ROLLER COVERMAKER this afternoon as BPS remain elevated in 160s and amlodipine added. Patient legally blind, AOX4, pleasant. Follows commands makes needs known. VOGT. Speech clear and normal. Requiring 2L w sleeping, PAINT ROLLER COVERMAKER notified that per overnight nurse had been desatting into 60s when sleeping and on room air, pt does use home O2. RLL w some fine crackles, remains on lasix. Breathing unlabored and symmetric. Today only w minimal nausea, no emesis, ate all of breakfast today. Abdomen no longer tender to palpation. Refusing suppository. refusing heparin and compression boots PAINT ROLLER COVERMAKER aware . PAINT ROLLER COVERMAKER aware she refused AM labs, still trying to get patient to agree to them. Pain on R side from fall. safety measures are in place, pls see [facility] for more details . CT Abdomen and Pelvis WO contrast BHSPowerpratibha , SARANYA S: TRANSCRIBE Kaveh Chambers MD: VERIFY Event Display: Result: Authored Date: [id number] CT Abdomen and Pelvis W/O Contrast Hx of Present Illness: pt presents from home c o chest pain. pt fell twice today and is complaining of pain with inspiration. Denies thinners. Denies LOC and head strike. Pt has cardiac and renal hx. Pt states first fall was after getting dizzy and second fall was mechanical .; Reason: Other:; Flank pain, kidney stone suspected; Clinical Question(s): Calculus; Right Side flank; Order Comment: TECHNIQUE: Spiral CT through the abdomen and pelvis without IV contrast formatted in 3 planes. This study was performed without oral contrast. Weight- based protocol using automatic tube modulation was used to optimize exposure parameters. CTDIvol Body: 17.02 mGy, DLP Body: 850 mGy*cm. COMPARISON: 02/28/2022 FINDINGS: Continuing Education Specialist View Findings, Lines and Tubes: None. Visualized Chest: Persistent bilateral pleural effusions present. Diaphragm: Normal. Liver: Normal. Gallbladder: Absent consistent with prior cholecystectomy. Bile ducts: No biliary ductal dilation. Spleen: Normal. Pancreas: Normal. Adrenal glands: Normal. Kidneys and ureters: No hydronephrosis, stones, or noncontrast evidence of suspicious masses. Bladder: Normal. Reproductive organs: Unremarkable. Stomach, small bowel, and large bowel: Normal. Appendix: Normal. Peritoneum and retroperitoneum: No ascites or pneumoperitoneum. No omental or mesenteric lesions. Lymph nodes: No enlarged lymph nodes. Blood vessels: Normal. No aneurysm. Abdominal and pelvic wall: Unremarkable. Bones: No acute abnormality. IMPRESSION: Similar pleural effusions compared to previous exam. Otherwise unremarkable CT scan of the abdomen and pelvis. WSN: [id number] Ordering Physician: Sonia Johnson Dictated By: Kaveh Chambers MD Dictated Date/Time: 03/25/22 9:11 pm Reviewed By: Kaveh Chambers MD Signed By: Kaveh Chambers MD Signed Date/Time: 03/25/22 9:11 pm Transcribed By: ALEXIS Transcribed Date/Time: 03/25/22 9:05 pm XR Abdomen AP BHSPowerscsanfordbe , CIS S: TRANSCRIBE Kaveh Chambers MD: VERIFY Event Display: Result: Authored Date: [id number] XR Abdomen AP 1 view INDICATION/CLINICAL QUESTION: Reason: Constipation; Clinical Question(s): Obstruction COMPARISON: None FINDINGS: Mild stool retention but otherwise normal bowel gas pattern. No evidence of obstruction. No evidence of pneumoperitoneum. No organomegaly, masses or calcifications. No acute bone findings. Right upper quadrant surgical clips. IMPRESSION: Mild stool retention but otherwise normal. WSN: [id number] Ordering Physician: Dominic Ruiz Dictated By: Kaveh Chambers MD Dictated Date/Time: 03/26/22 7:33 pm Reviewed By: Kaveh Chambers MD Signed By: Kaveh Chambers MD Signed Date/Time: 03/26/22 7:33 pm Transcribed By: ALEXIS Transcribed Date/Time: 03/26/22 7:32 pm Patient Care team information Care Team PersonnelName: Anuradha Morris RN Position: [facility] RN Member Role: Primary Care Nurse Name: Samantha Reynolds RN Position: [facility] RN Member Role: Primary Care Nurse Name: Omega Gillespie RN Position: [facility] RN Member Role: Primary Care Nurse Name: Paty Kelly RN Position: [facility] RN Member Role: Primary Care Nurse Name: Sonia Malone Position: [facility] RN Member Role: Primary Care Nurse Name: Keira Desai RN Position: [facility] RN Member Role: Primary Care Nurse Name: Gomez Moseley RN Position: [facility] RN Supv Member Role: Primary Care Nurse Name: Vashti Bruce RN Position: [facility] RN Member Role: Primary Care Nurse Name: Raghav Granger Position: [facility] RN Member Role: Primary Care Nurse Name: Cassy Caraballo RN Position: [facility] RN Member Role: Primary Care Nurse Name: Jodi Carrillo RN Position: [facility] RN Member Role: Primary Care Nurse Name: Abbey Shelley RN Position: S RN Member Role: Primary Care Nurse Name: Larissa Barnett RN Position: [facility] RN Member Role: Primary Care Nurse Name: Inna Beckwith RN Position: [facility] RN Member Role: Primary Care Nurse Name: Cady Araya RN Position: [facility] RN Member Role: Primary Care Nurse Name: Abdon Beard MD Position: S Outreach Member Role: PCP Address: Address: [address] [place] [address]- Name: Anuradha Frank Position: S RN Member Role: Primary Care Nurse Name: Michele Blancas DO Position: [facility] Renal MD Member Role: Lifetime Consulting Physician Address: Address: [address] [facility] [address] [facility] [address] [facility] [place] [address]- Name: María Acosta RN Position: [facility] RN Member Role: Primary Care Nurse Name: Treasure Gilbert RN Position: [facility] RN Supv Member Role: Primary Care Nurse Name: Stefany Grajeda RN Position: [facility] RN Member Role: Primary Care Nurse Name: Farzana Sevilla Position: S RN Member Role: Primary Care Nurse Name: Javan Pimentel MD Position: [facility] Renal MD Member Role: Lifetime Consulting Physician Address: Address: [address] [place] [address] [address] [facility] [place] [address]- Name: Heather Pal RN Position: [facility] RN Member Role: Primary Care Nurse Name: Jody Rasmussen RN Position: [facility] RN Member Role: Primary Care Nurse Name: Luisa Devine RN Position: [facility] RN Member Role: Primary Care Nurse Name: Mau Hazel RN Position: [facility] RN Member Role: Primary Care Nurse Name: Pedro Taylor RN Position: [facility] RN Member Role: Primary Care Nurse Name: Charlotte Singletary RN Position: [facility] OB RN Member Role: Primary Care Nurse Name: Alison Jose RN Position: [facility] RN Member Role: Primary Care Nurse Name: Kendall Coleman RN Position: [facility] RN Member Role: Primary Care Nurse Name: Nancy Fair RN Position: [facility] SN RN Member Role: Primary Care Nurse Name: Sofie Reed Position: [facility] RN Member Role: Primary Care Nurse Name: Kasia Vital RN Position: [facility] RN Member Role: Primary Care Nurse Name: Fernando Siddiqi MD Position: [facility] Renal MD Member Role: Lifetime Consulting Physician Address: Address: [address] [facility] [place] [address]- Name: Kaelyn Lewis RN Position: [facility] RN Member Role: Primary Care Nurse Name: Lianne Byrnes RN Position: [facility] RN Member Role: Primary Care Nurse Name: Tona Jacome LPN Position: [facility] RN Member Role: Primary Care Nurse Name: Kaitlin BETH, Tatiana Dennis Position: [facility] RN Member Role: Primary Care Nurse Name: Jose Callejas RN Position: [facility] RN Member Role: Primary Care Nurse Name: Ashely Riley Position: [facility] RN Member Role: Primary Care Nurse Name: Beatrice Garcia MD Position: [facility] ED Medicine MD Member Role: ED Attending Physician Address: Address: [address] [place] [address]- Name: Dari Mejia RN Position: [facility] ED RN W/OE and Tasks Member Role: Patient Care Provider Name: Dov Victoria Position: [facility] ED TA [facility] Member Role: Patient Care Provider Name: Elizabeth PAINT ROLLER COVERMAKERSonia Position: [facility] Associate Professional Member Role: ED Physician Twill Cutter Address: Address: [address] [place] [address]- Care Team Related PersonsName: LEONOR MCFARLAND Address: home [address] [place] [address] Name: REJI TAYLOR Address: home [address] [place] [address] Name: JEFF CHAPMAN Address: [address] Address: home [address] [address] [place] Name: ELI BONILLA Address: home [address] [place] [address]
--- OUTSIDE RECORDS SUMMARY | 2022-03-31 18:20 | XMS_ITS | Continuity of Care Document ---
:1990 Author Organization [facility] ic Address [address] [place] [address]- Care Team Providers Name Role Phone Abdon Beard MD Primary Care Physician Encounter [facility] Date(s): 01/04/22 - 02/03/[address] [address] Allergies, Adverse Reactions, Alerts Substance Reaction [...] Status Refusal Reason influenza virus vaccine, inactivated 01/18/22 Not Given Patient Refuses influenza virus vaccine, inactivated 03/05/21 Not Given Patient Refuses 1Admin Note: VIS 03/21/11 (given)2Admin Note: hx varicella '[id number] Note: TD4 Admin Note: unknown exact [id number] Note: unknown exact date Medications Alcohol Pads [...] 12:03:00 EDT, Supply Start Date: 08/31/21 Status: Orderedcarvedilol 25 mg oral tablet 25 mg, By Mouth, 2 times a day, # 60 tablet, Refills 1, Tot. Refills 1, Maintenance, 02/02/22 15:17:00 EST, Route to Pharmacy Electronically, [facility]/pharmacy #[id number], Partial fill upon patient request if the prescription is for a schedule II opioid drug.,... Start Date: 02/02/22 Status: OrderedColace sodium 100 mg oral capsule 100 mg, 1, capsule, By Mouth, 2 times a day, PRN, # 20 capsule, Refills 0, Tot. Refills 0, Maintenance, for constipation, 12/13/21 14:16:00 EDT, Route to Pharmacy Electronically, [facility]/pharmacy #[id number], Partial fill upon patient request if the prescriptio... Start Date: 12/13/21 Status: OrderedCrestor 5 mg oral tablet 1 tablet = 5 mg, By Mouth, Daily, # 30 tablet, 0 Refills, Maintenance, 01/19/22 13:30:00 EST, Tablet, [facility]/pharmacy #[id number], Partial fill upon patient request if the prescription is for a schedule II opioid drug., 160, cm, 01/19/22 8:55:00 EST, Height, 9... Start Date: 01/19/22 Status: Orderedduloxetine 30 mg oral enteric coated capsule 1 capsule = 30 mg, By Mouth, Daily, # 30 capsule, 1 Refills, Maintenance, 02/02/22 15:18:00 EST, Capsule, [facility]/pharmacy #[id number], Partial fill upon patient request if the prescription is for a schedule II opioid drug., 160, cm, 01/19/22 8:55:00 EST, Heigh... Start Date: 02/02/22 Status: OrderedFreestyle Lancets See Instructions, # 600 [...] Start Date: 06/18/21 Stop Date: 03/15/22 Status: OrderedHYDROmorphone 2 mg oral tablet 1 tablet = 2 mg, By Mouth, Every 6 hours, PRN Pain , Severe, for 3 days, # 12 tablet, 0 Refills, Acute 02/05/22 15:18:00 EST, 02/02/22 15:18:00 EST, Tablet, [facility]/pharmacy #[id number], Partial fill upon patient request if the prescription is for a schedule II... Start Date: 02/02/22 Stop Date: 02/05/22 Status: Orderedinsulin lispro 100 u/ml subcutaneous injection 1-5 units, Subcutaneous Injection, 3 times a day before meals, << Sliding Scale Comments >> 150 - 199 1 units Call if less than 70 200 - 249 2 units 250 - 299 3 units 300 - 349 4 units 350 - 399 5 units Call if greater than 400 << S... Start Date: 02/02/22 Status: OrderedLevemir FlexTouch 100 units/mL subcutaneous solution See Instructions, INJECT 4 UNITS SUBCUTANEOUSLY AT BEDTIME FOR 30 DAYS, # 15 Unknown, 0 Refills, Maintenance, 12/19/21 16:07:00 EDT, [id number], 168, cm, 12/13/21 12:57:00 EDT, Height, 90, kg, 12/13/21 11:35:00 EDT, Dry Weight Start Date: 12/19/21 Status: OrderedNIFEdipine 60 mg oral tablet, extended release 60 mg, 1, tablet, By Mouth, Daily, # 30 tablet, Refills 0, Tot. Refills 0, Maintenance, 02/02/22 15:17:00 EST, Route to Pharmacy Electronically, [facility]/pharmacy #[id number], Partial fill upon patient request ifthe prescription is for a schedule II opioid drug... Start Date: 02/02/22 Status: Orderedpantoprazole 20 mg oral delayed release tablet 1 tablet = 20 mg, By Mouth, Daily, # 7 tablet, 0 Refills, Maintenance, 02/02/22 15:19:00 EST, CR Tablet, 160, cm, 01/19/22 8:55:00 EST, Height, 94.1, kg, 01/17/22 17:50:00 EST, Dry Weight Start Date: 02/02/22 Stop Date: 02/09/22 Status: OrderedPeak Flow Meter (Adult) See Instructions, # 1 each, Maintenance, Use when wheezing or chest tightness. Call for peak flow less than 200., 08/24/21 15:17:00 EDT, Supply, 168, cm, 08/24/21 11:41:00 EDT, Height, 75.8, kg, 06/09/21 11:38:00 EDT, Dry Weight Start Date: 08/24/21 Status: OrderedPen [place], 30 G x 8 mm BD Ultra [...] 0 Refills, Maintenance, 08/24/21 11:43:00 EDT, Inhaler, [facility]/pharm[facility] #[id number], Partial fill upon patient request if the prescription is for a schedul... Start Date: 08/24/21 Status: OrderedSenexon-S 50 mg-8.6 mg oral tablet 2 tablet, By Mouth, 2 times a day, PRN Constipation, 0 Refills, Maintenance, 07/11/21 14:00:00 EDT, Partial fill upon patient request if the prescription is for a schedule II opioid drug. Start Date: 07/11/21 Status: Orderedtorsemide 20 mg oral tablet 1 tablet = 20 mg, By Mouth, Daily, # 30 tablet, 0 Refills, Maintenance, 02/02/22 15:22:00 EST, Tablet, [facility]/pharm[facility] #[id number], Partial fill upon patient request if the prescription is for a schedule II opioid drug., 160, cm, 01/19/22 8:55:00 EST, Height,... Start Date: 02/02/22 Status: Ordered Problem List Condition Confirmation Course [...] type 2 diabetes mellitus Migraine5 Confirmed Active Obese class II Confirmed Active Care Coordination Confirmed Active N-LISA, Hakan Angel, CC 1Managed by PCP. WEll controlled.2Self-manages. States currently stable. No medications.3Not seem at [facility] since 08/12/2016. Multiple no show in our center. She is seen by other provider Dr Matt Gutierrez by pharmacy records.4Managed by [id number] by PCP with Tylenol Social History Social History Type Response Smoking Status Never (less than 100 in life time) entered on: 08/22/21 Sex Patient Care team information Care Team PersonnelName: Anuradha Morris RN Position: [facility] RN Member Role: Primary Care Nurse Name: Samantha Reynolds RN Position: [facility] RN Member Role: Primary Care Nurse Name: Omega Gillespie RN Position: [facility] RN Member Role: Primary Care Nurse Name: Paty Kelly RN Position: [facility] RN Member Role: Primary Care Nurse Name: Akil Gleason RN Position: [facility] RN Member Role: Primary Care Nurse Name: Sonia Malone Position: S RN Member Role: Primary Care Nurse Name: Keira Desai RN Position: S RN Member Role: Primary Care Nurse Name: Gomez Moseley RN Position: [facility] RN Supv Member Role: Primary Care Nurse Name: Vashti Bruce RN Position: S RN Member Role: Primary Care Nurse Name: Raghav Granger Position: S RN Member Role: Primary Care Nurse Name: Cassy Caraballo RN Position: S RN Member Role: Primary Care Nurse Name: Lisa Vines RN Position: S RN Member Role: Primary Care Nurse Name: Larissa Barnett RN Position: S RN Member Role: Primary Care Nurse Name: Inna Beckwith RN Position: [facility] RN Member Role: Primary Care Nurse Name: Cady Araya RN Position: S RN Member Role: Primary Care Nurse Name: Abdon Beard MD Position: [facility] Outreach Member Role: PCP Address: Address: [address] [place] [address]- Name: Michele Blancas DO Position: [facility] Renal MD Member Role: Lifetime Consulting Physician Address: Address: [address] [facility] [address] [facility] [place] [place] [address]- Name: María Acosta RN Position: [facility] RN Member Role: Primary Care Nurse Name: Heather Correa RN Position: [facility] RN Member Role: Primary Care Nurse Name: Treasure Gilbert RN Position: [facility] RN Addie Member Role: Primary Care Nurse Name: Farzana Sevilla Position: [facility] RN Member Role: Primary Care Nurse Name: Libertad Sim RN Position: [facility] RN Member Role: Primary Care Nurse Name: Javan Pimentel MD Position: [facility] Renal MD Member Role: Lifetime Consulting Physician Address: Address: [address] [place] [address] [address] [facility] [place] [address]- Name: Heather Pal RN Position: [facility] RN Member Role: Primary Care Nurse Name: Jody Rasmussen RN Position: [facility] RN Member Role: Primary Care Nurse Name: Mau Hazel RN Position: [facility] RN Member Role: Primary Care Nurse Name: Pedro Taylor RN Position: [facility] RN Member Role: Primary Care Nurse Name: Charlotte Singletary RN Position: [facility] OB RN Member Role: Primary Care Nurse Name: Alison Jose RN Position: [facility] RN Member Role: Primary Care Nurse Name: Kendall Coleman RN Position: [facility] RN Member Role: Primary Care Nurse Name: Nancy Fair RN Position: [facility] SN RN Member Role: Primary Care Nurse Name: Sofie Reed Position: [facility] RN Member Role: Primary Care Nurse Name: Fernando Siddiqi MD Position: [facility] Renal MD Member Role: Lifetime Consulting Physician Address: Address: [address] [place] [address] [facility] [place] [address]- Name: Lianne Byrnes RN Position: S RN Member Role: Primary Care Nurse Name: Tona Jacome LPN Position: S RN Member Role: Primary Care Nurse Name: Kaitlin BETH, Tatiana Dennis Position: S RN Member Role: Primary Care Nurse Name: Jose Callejas RN Position: S RN Member Role: Primary Care Nurse Care Team Related PersonsName: LEONOR MCFARLAND Address: home [address] [place] [address] Name: REJI TAYLOR Address: home [address] [place] [address] Name: JEFF CHAPMAN Address: [address] Address: home [address] [address] Name: ELI BONILLA Address: home [address] [address]
--- OUTSIDE RECORDS SUMMARY | 2022-03-31 18:20 | XMS_ITS | Continuity of Care Document ---
:1990 Author Organization [facility] Address [address] [place] [address]- Care Team Providers Name Role Phone Chirag CARLSON, Abdon Primary Care Physician [facility]counter [facility] Date(s): 08/24/21 - 09/24/[address] [address] Attending Physician: Christiana Quiros MD Referring Physician: Christiana Quiros MD Allergies, Adverse Reactions, Alerts Substance Reaction [...] '[id number] Note: TD4 Admin Note: unknown exact [id number] Note: unknown exact date Medications acetaminophen 325 [...] 08/24/21 11:43:00 EDT, Route to Pharmacy Electronically, [facility]/pharmacy #[id number], Partial fill upon patient request ifthe prescription [...] 08/24/21 11:44:00 EDT, Route to Pharmacy Electronically, [facility]/pharmacy #[id number], Partial fill u... Start Date: 08/24/21 Status: OrderedLevemir FlexTouch 100 units/mL subcutaneous solution = 8 units, Subcutaneous Injection, Daily at bedtime, # 10 mL, 0 Refills, Maintenance, 08/24/21 11:26:00 EDT, Injection, [facility]/pharmacy #[id number], Partial fill upon patient request if the prescription is for a schedule II opioid drug., 168, cm, 08/24/21 10:3... Start Date: 08/24/21 Stop Date: 09/23/21 Status: OrderedMetoprolol Tartrate 25 mg oral tablet 2 tablet = 50 mg, By Mouth, 2 times a day, # 120 each, 4 Refills, Maintenance, 09/07/21 18:00:00 EDT, Tablet, [facility]/pharmacy #[id number], Partial fill upon patient request [...] Dry Weight Start Date: 08/24/21 Status: OrderedPen [place], 30 G x 8 mm BD Ultra [...] Refills, Maintenance, 08/24/21 11:27:00 EDT, Chew Tablet, [facility]/pharmacy #[id number], Partial fill upon patient request if the prescription is for a schedule II opioid drug., 1 tablet Chew Daily, 168, cm, 08/24/21 10:36:0... Start Date: 08/24/21 Status: OrderedProAir HFA 90 mcg/inh inhalation aerosol See Instructions, PRN Wheezing/Shortness of Breath, Inhale 2 puff every 4 to 6 hours as needed, # 18Gm, 0 Refills, Maintenance, 08/24/21 11:43:00 EDT, Inhaler, [facility]/pharmacy #[id number], Partial fill upon patient request [...] Active Obese class I(Confirmed) Active Care Coordination [facility], Hakan Active Jeanne, CC (Confirmed) Pre-existing diabetes mellitus Active affecting , antepartum(Confirmed) Poor vision(Confirmed)6 Active 1Managed by PCP. WEll controlled.2Self-manages. States currently stable. No medications.3Not seem at [facility] since 08/12/2016. Multiple no show in our center. She is seen by other provider Dr Matt Gutierrez by pharmacy records.4Managed by [id number] by PCP with [id number], states sees shadows and has blurry vision. Last eye doctor appointment was several years ago. Social History Social History Type Response Smoking Status Never (less than 100 in life time) entered on: 08/22/21 Sex
--- OUTSIDE RECORDS SUMMARY | 2022-03-31 18:20 | XMS_ITS | Continuity of Care Document ---
:1990 Author Organization [facility] ic Address [address] [place] [address]- Care Team Providers Name Role Phone Abdon Beard MD Primary Care Physician [facility]counter [facility] Date(s): 08/23/21 - 09/22/[address] [address]- Allergies, Adverse Reactions, Alerts Substance Reaction Severity [...] '943Admin Note: TD4 Admin Note: unknown exact [id number] Note: unknown exact date Medications acetaminophen 325 [...] 08/24/21 11:43:00 EDT, Route to Pharmacy Electronically, [facility]/pharmacy #[id number], Partial fill upon patient request ifthe prescription [...] 08/24/21 11:44:00 EDT, Route to Pharmacy Electronically, [facility]/pharmacy #[id number], Partial fill u... Start Date: 08/24/21 Status: OrderedLevemir FlexTouch 100 units/mL subcutaneous solution = 8 units, Subcutaneous Injection, Daily at bedtime, # 10 mL, 0 Refills, Maintenance, 08/24/21 11:26:00 EDT, Injection, [facility]/pharmacy #[id number], Partial fill upon patient request if the prescription is for a schedule II opioid drug., 168, cm, 08/24/21 10:3... Start Date: 08/24/21 Stop Date: 09/23/21 Status: OrderedMetoprolol Tartrate 25 mg oral tablet 2 tablet = 50 mg, By Mouth, 2 times a day, # 120 each, 4 Refills, Maintenance, 09/07/21 18:00:00 EDT, Tablet, [facility]/pharmacy #[id number], Partial fill upon patient request [...] Dry Weight Start Date: 08/24/21 Status: OrderedPen [place], 30 G x 8 mm BD Ultra [...] Refills, Maintenance, 08/24/21 11:27:00 EDT, Chew Tablet, [facility]/pharmacy #[id number], Partial fill upon patient request if the prescription is for a schedule II opioid drug., 1 tablet Chew Daily, 168, cm, 08/24/21 10:36:0... Start Date: 08/24/21 Status: OrderedProAir HFA 90 mcg/inh inhalation aerosol See Instructions, PRN Wheezing/Shortness of Breath, Inhale 2 puff every 4 to 6 hours as needed, # 18Gm, 0 Refills, Maintenance, 08/24/21 11:43:00 EDT, Inhaler, [facility]/pharmacy #[id number], Partial fill upon patient request [...] Active Obese class I(Confirmed) Active Care Coordination [facility], Hakan Active Jeanne, CC (Confirmed) Pre-existing diabetes mellitus Active affecting , antepartum(Confirmed) Poor vision(Confirmed)6 Active 1Managed by PCP. WEll controlled.2Self-manages. States currently stable. No medications.3Not seem at [facility] since 08/12/2016. Multiple no show in our center. She is seen by other provider Dr Matt Gutierrez by pharmacy records.4Managed by [id number] by PCP with [id number], states sees shadows and has blurry vision. Last eye doctor appointment was several years ago. Social History Social History Type Response Smoking Status Never (less than 100 in life time) entered on: 08/22/21 Sex
--- OUTSIDE RECORDS SUMMARY | 2022-03-31 18:20 | XMS_ITS | Continuity of Care Document ---
:1990 Author Organization [facility] Address [address] [place] [address]- Care Team Providers Name Role Phone Abdon Beard MD Primary Care Physician Encounter [facility] Date(s): 05/25/20 - 09/22/20 [facility] [address] [place] [id number]- Attending Physician: Angela Hartmann MD Admitting Physician: [...] '943Admin Note: TD4 Admin Note: unknown exact [id number] Note: unknown exact date Medications aspirin 81 mg oral delayed release tablet 162 mg, 2, tablet, By Mouth, Daily, To begin taking at 12 weeks gestational age - Approx. Apr 14 2020, # 30 tablet, Refills 0, Tot. Refills 0, Maintenance, 03/05/20 14:49:00 EST, Route to Pharmacy Electronically, [facility]/pharmacy #[id number], Partial fill upo... Start Date: 03/05/20 Status: Orderedbedside commode bedside commode, See Instructions, # 1 each, Refills 0, Tot. Refills 0, Maintenance, DX DM E 11.9 using at bedside, 11/14/17 17:17:55 EDT, Compound Start Date: 11/14/17 Status: OrderedDEXCOM G6 ART SUPERVISOR DEXCOM G6 ART SUPERVISOR, See Instructions, # 1 each, Refills 0, Tot. Refills 0, Maintenance, Use to monitor blood lgucose levels [facility]: [address]-03 E10.9, 04/06/20 12:07:00 EST, Supply, 170, cm, 03/05/20 14:05:00 EST, Height, 82, kg, 03/05/20 14:53:00... Start Date: 04/06/20 Status: OrderedDEXCOM G6 SENSOR, 3 PACK DEXCOM G6 SENSOR, 3 PACK, See Instructions, # 3 each, Refills 3, Tot. Refills 3, Maintenance, Use tomonitor blood sugar. E10.9 [facility] [address]-22, 07/16/20 14:20:00 EDT, Supply Start Date: 07/16/20 Status: OrderedDEXCOM G6 TRANSMITTER DEXCOM G6 TRANSMITTER, See Instructions, # 1 each, Refills 3, Tot. Refills 3, Maintenance, DEXCOM [id number], 07/16/20 14:20:00 EDT, Supply Start Date: 07/16/20 [...] 5 Refills, Maintenance, 06/17/20 13:05:00 EDT, Tablet, [facility]/pharmacy #[id number], Partial fill upon patient request if the prescription is for a schedule II opi... Start Date: 06/17/20 Status: OrderedLevemir FlexTouch 100 units/mL subcutaneous solution See Instructions, Take 40 units once daily. E11.65, # 30 mL, 5 Refills, Maintenance, 02/18/20 16:48:00 EST, [facility]/pharmacy #[id number], Stop Lantus. Start Levemir., 170, cm, [...] type 2(Confirmed)1 Active Hypertension(Confirmed) Active Care Coordination [facility], Hakan Active Jeanne, CC (Confirmed) delivery(Confirmed) Active delivery(Confirmed) Active 1Not seem at [facility] since 08/12/2016. Multiple no show in our center. She is seen by other provider Dr Matt Gutierrez by pharmacy records. Social History Social History Type Response Smoking Status Never smoker entered on: 03/28/17 Sex
--- OUTSIDE RECORDS SUMMARY | 2022-03-31 18:21 | XMS_ITS | Continuity of Care Document ---
:1990 Author Organization [facility] Address [address] [place] [address]- Care Team Providers Name Role Phone Abdon Beard MD Primary Care Physician Encounter [facility] Date(s): 04/27/21 - 04/28/[address] [address]- Discharge Disposition: A-D/C Walkout Attending Physician: Not on Staff, Attending MD Admitting Physician: Not on Staff, Admitting MD Referring Physician: Not on Staff, Referring [...] '943Admin Note: TD4 Admin Note: unknown exact [id number] Note: unknown exact date Medications amLODIPine 10 mg oral tablet 10 mg, 1, tablet, By Mouth, Daily, # 30 tablet, Refills 5, Tot. Refills 5, Maintenance, 03/31/21 14:26:00 EST, Route to Pharmacy Electronically, [facility]/pharmacy #[id number], Partial fill upon patient request ifthe prescription is for a schedule II opioid drug... Start Date: 03/31/21 Status: Orderedatorvastatin 40 mg oral tablet 1 tablet = 40 mg, By Mouth, Daily at bedtime, Follow-up with your primary care doctor for further refills., # 30 tablet, 1 Refills, Maintenance, 04/26/21 14:51:00 EST, Tablet, [facility],Partial fill upon patient request if the prescrip... Start Date: 04/26/21 Status: Ordereddoxycycline monohydrate 100 mg oral capsule = 100 mg, By Mouth, Daily at bedtime, Take with fluids. May take with food to minimize abdominal discomfort. Take at bedtime or 6 hours after iron tablet., # 30 each, 0 Refills, Maintenance, 04/27/21 7:07:00 EST, Capsule, [facility], Par... Start Date: 04/27/21 [...] 3 Refills, Maintenance, 11/17/20 10:19:00 EDT, Tablet, [facility]/pharmacy #[id number], Partial fillupon patient request if the prescription is for a... Start Date: 11/17/20 Status: OrderedLasix 20 mg oral tablet 20 mg, 1, tablet, By Mouth, Daily, Follow-up with your primary care doctor for further refills., # 30 tablet, Refills 0, Tot. Refills 0, Maintenance, 04/26/21 14:52:00 EST, Route to Pharmacy Electronically, [facility], Partial fill upon... Start Date: 04/26/21 Status: OrderedLevemir FlexTouch 100 units/mL subcutaneous solution INJECT 43 UNITS SUBCUTANEOUSLY ONCE DAILY Start Date: 04/23/21 Status: Orderedlidocaine 5% topical film 1 patch, Topically, Daily, PRN Pain , Mild, remove after 12 hours, # 13 each, 0 Refills, Maintenance, 04/19/21 11:26:00 EST, Film, [facility]/pharmacy #[id number], Partial fill upon patient request if [...] 14:52:00 EST, Route to Pharmacy Electronically, [facility], Partial fi... Start Date: 04/26/21 Status: Orderednitroglycerin 0.4 mg sublingual tablet 1 tablet = 0.4 mg, Sublingual, Every 5 minutes, PRN as needed for chest pain, not to exceed 3 doses/15 min--if pain persists, seek medical attention, # 25 tablet, 0 Refills, Maintenance, 03/31/21 14:26:00 EST, Tablet, [facility]/pharmacy #[id number], Partial fill... Start Date: 03/31/21 Status: [...] Hypertension(Confirmed) Active Care Coordination [facility], Hakan Active Jeanne, CC (Confirmed) delivery(Confirmed) Active delivery(Confirmed) Active 1Not seem at [facility] since 08/12/2016. Multiple no show in our center. She is seen by other provider Dr Matt Gutierrez by pharmacy records. Vital Signs Most recent to oldest [Reference Range]: 1 Oxygen Saturation [94-100 %] 100 % (04/27/21 11:28 PM) Pulse Rate [55-90 bpm] 102 bpm *H* (04/27/21 11:28 PM) Blood Pressure [90-138/55-84 mm Hg] 135/85 mm Hg (04/27/21 11:28 PM) Respiratory Rate [16-30 br/min] 16 br/min (04/27/21 11:28 PM) Temperature [96.8-100.4 DegF] 97.7 DegF (04/27/21 11:28 PM) Mode of Delivery (Oxygen) Room air (04/27/21 11:28 PM) Blood pressure sites Arm, left (04/27/21 11:28 PM) Temperature Route Oral (04/27/21 11:28 PM) Social History Social History Type Response Smoking Status Never (less than 100 in life time) entered on: 04/23/21 Sex
--- OUTSIDE RECORDS SUMMARY | 2022-03-31 18:21 | XMS_ITS | Continuity of Care Document ---
:1990 Author Organization [facility] Address [address] [place] [address]- Care Team Providers Name Role Phone Abdon Beard MD Primary Care Physician [facility] Date(s): 11/17/21 - 12/17/21 [facility] [address] [place] [id number] Allergies, Adverse Reactions, Alerts Substance Reaction Severity [...] '943Admin Note: TD4 Admin Note: unknown exact [id number] Note: unknown exact date Medications Alcohol Pads [...] 12/13/21 14:16:00 EDT, Route to Pharmacy Electronically, [facility]/pharmacy #[id number], Partial fill upon patient request if the prescriptio... Start Date: 12/13/21 Status: OrderedCoreg 25 mg oral tablet 50 mg, 2, tablet, By Mouth, 2 times a day, # 120 tablet, Refills 0, Tot. Refills 0, Maintenance, 12/13/21 14:16:00 EDT, Route to Pharmacy Electronically, [facility]/pharmacy #[id number], Partial fill upon patient [...] 12/13/21 14:16:00 EDT, Route to Pharmacy Electronically, [facility]/pharmacy #[id number], Partial fill upon patient request if the prescription is for a schedule II op... Start Date: 12/13/21 Status: OrderedLevemir FlexTouch 100 units/mL subcutaneous solution = 10 units, Subcutaneous Injection, Daily at bedtime, # 15 mL, 0 Refills, Maintenance, 08/24/21 11:26:00 EDT, Injection, [facility]/pharmacy #[id number], Partial fill upon patient request if the prescription is fora schedule II opioid drug., 168, cm, 08/24/21 10:... Start Date: 08/24/21 Stop Date: 09/23/21 Status: OrderedNIFEdipine (Eqv-Procardia XL) 90 mg oral tablet, extended release 1 tablet = 90 mg, By Mouth, Daily, # 30 tablet, 0 Refills, Maintenance, 12/13/21 14:16:00 EDT, [facility]/pharmacy #[id number], Partial fill upon patient [...] 12/13/21 14:17:00 EDT, Route to Pharmacy Electronically, [facility]/pharmacy #[id number], Partial fill upon elisa... Start Date: 12/13/21 Status: OrderedPeak Flow Meter (Adult) See Instructions, # 1 each, Maintenance, Use when wheezing or chest tightness. Call for peak flow less than 200., 08/24/21 15:17:00 EDT, Supply, 168, cm, 08/24/21 11:41:00 EDT, Height, 75.8, kg, 06/09/21 11:38:00 EDT, Dry Weight Start Date: 08/24/21 Status: OrderedPen [place], 30 G x 8 mm BD Ultra [...] 0 Refills, Maintenance, 08/24/21 11:43:00 EDT, Inhaler, [facility]/pharmacy #[id number], Partial fill upon patient [...] 12/13/21 14:17:00 EDT, Route to Pharmacy Electronically, [facility]/pharmacy #[id number], Partial fill upon patient request if the prescription is f... Start Date: 12/13/21 Status: OrderedTylenol Extra Strength 500 mg oral tablet 2 tablet = 1,000 mg, By Mouth, Every 4 hours, PRN for pain, # 120 tablet, 0 Refills, Maintenance, 12/13/21 14:17:00 EDT, Tablet, [facility]/pharmacy #[id number], Partial fill upon patient [...] Dr Matt Gutierrez by pharmacy records.4Managed by [id number] by PCP with Tylenol Social History Social History Type Response Smoking Status Never (less than 100 in life time) entered on: 08/22/21 Sex Patient Care team information PersonnelName: Abdon Beard MD Address: Address: [address] [place] [id number]
--- OUTSIDE RECORDS SUMMARY | 2022-03-31 18:21 | XMS_ITS | Continuity of Care Document ---
:1990 Author Organization [facility] Address [address] [place] [address]- Care Team Providers Name Role Phone Chirag CARLSON, Abdon Primary Care Physician [facility]counter [facility] Date(s): 11/10/21 - 12/10/21 [facility] [address] [place] [id number] Allergies, Adverse Reactions, Alerts Substance Reaction [...] '943Admin Note: TD4 Admin Note: unknown exact [id number] Note: unknown exact date Medications Alcohol Pads [...] 08/24/21 11:43:00 EDT, Route to Pharmacy Electronically, [facility]/pharmacy #[id number], Partial fill upon patient request ifthe prescription is for a schedule II opioid drug... Start Date: 08/24/21 Status: Orderedaspirin 81 mg oral delayed release tablet 2 tablet = 162 mg, By Mouth, Daily, # 90 tablet, 3 Refills, Maintenance, 10/05/21 12:28:00 EDT, CR Tablet, [facility]/pharmacy #[id number], Partial fill upon patient request [...] schedule II opi... Start Date: 10/27/21 Status: OrderedLasix 40 mg oral tablet See Instructions, 1 tablet By Mouth every other day as needed for shortness of breath or leg swelling, # 30 tablet, Refills 0, Tot. Refills 0, Maintenance, 11/17/21 16:09:00 EDT, Instructions Replace Required Details, Route to Pharmacy Electronically,... Start Date: 11/17/21 Status: OrderedLevemir FlexTouch 100 units/mL subcutaneous solution = 10 units, Subcutaneous Injection, Daily at bedtime, # 15 mL, 0 Refills, Maintenance, 08/24/21 11:26:00 EDT, Injection, [facility]/pharmacy #[id number], Partial fill upon patient request if the prescription is fora schedule II opioid drug., 168, cm, 08/24/21 10:... Start Date: 08/24/21 Stop Date: 09/23/21 Status: OrderedoxyCODONE 5 mg oral capsule 1 [...] Dry Weight Start Date: 08/24/21 Status: OrderedPen [place], 30 G x 8 mm BD Ultra [...] Refills, Maintenance, 08/24/21 11:27:00 EDT, Chew Tablet, [facility]/pharmacy #[id number], Partial fill upon patient request if the prescription is for a schedule II opioid drug., 1 tablet Chew Daily, 168, cm, 08/24/21 10:36:0... Start Date: 08/24/21 Status: OrderedProAir HFA 90 mcg/inh inhalation aerosol See Instructions, PRN Wheezing/Shortness of Breath, Inhale 2 puff every 4 to 6 hours as needed, # 18Gm, 0 Refills, Maintenance, 08/24/21 11:43:00 EDT, Inhaler, [facility]/pharmacy #[id number], Partial fill upon patient request if the prescription is for a schedul... Start Date: 08/24/21 Status: OrderedSenexon-S 50 mg-8.6 mg oral tablet 2 tablet, By Mouth, 2 times a day, PRN Constipation, 0 Refills, Maintenance, 07/11/21 14:00:00 EDT, Partial fill upon patient request if the prescription is for a schedule II opioid drug. Start Date: 07/11/21 Status: OrderedToprol XL 50 mg oral tablet, extended release 50 mg, 1, tablet, By Mouth, Daily, # 30 tablet, Refills 2, Tot. Refills 2, Maintenance, 11/17/21 16:18:00 EDT, Route to Pharmacy Electronically, [facility]/pharmacy #[id number], Partial fill upon patient request ifthe prescription is for a schedule II opioid drug... Start Date: 11/17/21 Status: Ordered Problem List Condition Confirmation Course [...] I Confirmed Active Care Coordination Confirmed Active [facility], Hakan Angel, CC 1Managed by PCP. WEll controlled.2Self-manages. States currently stable. No medications.3Not seem at [facility] since 08/12/2016. Multiple no show in our center. She is seen by other provider Dr Matt Gutierrez by pharmacy records.4Managed by [id number] by PCP with Tylenol Social History Social History Type Response Smoking Status Never (less than 100 in life time) entered on: 08/22/21 Sex Patient Care team information PersonnelName: Chirag CARLSON, Abdon Address: Address: [address] [place] [address]
--- OUTSIDE RECORDS SUMMARY | 2022-03-31 18:21 | XMS_ITS | Continuity of Care Document ---
:1990 Author Organization [facility] ic Address [address] [place] [address]- Care Team Providers Name Role Phone Not on Staff, PCP Primary Care Physician Unavailable Encounter [facility] Date(s): 02/25/20 - 03/26/[address] [address] Allergies, Adverse Reactions, Alerts Substance Reaction [...] '943Admin Note: TD4 Admin Note: unknown exact [id number] Note: unknown exact date Medications aspirin 81 mg oral delayed release tablet 162 mg, 2, tablet, By Mouth, Daily, To begin taking at 12 weeks gestational age - Approx. Apr 14 2020, # 30 tablet, Refills 0, Tot. Refills 0, Maintenance, 03/05/20 14:49:00 EST, Route to Pharmacy Electronically, [facility]/pharmacy #[id number], Partial fill upo... Start Date: 03/05/20 Status: Orderedbedside commode bedside commode, See Instructions, # 1 each, Refills 0, Tot. Refills 0, Maintenance, DX DM E 11.9 using at bedside, 11/14/17 17:17:55 EDT, Compound Start Date: 11/14/17 Status: OrderedDEXCOM G6 COMMISSION CLERK DEXCOM G6 COMMISSION CLERK, See Instructions, # 1 each, Refills 0, Tot. Refills 0, Maintenance, Use to monitor blood lgucose levels [facility]: [id number] E10.9, 03/25/20 11:50:00 EST, Supply Start Date: 03/25/20 Status: OrderedDEXCOM G6 SENSOR, 3 PACK DEXCOM G6 SENSOR, 3 PACK, See Instructions, # 3 each, Refills 3, Tot. Refills 3, Maintenance, Use tomonitor blood sugar. E10.9 [facility] [id number], 03/25/20 11:50:00 EST, Supply Start Date: 03/25/20 Status: OrderedDEXCOM G6 TRANSMITTER DEXCOM G6 TRANSMITTER, See Instructions, # 2 each, Refills 3, Tot. Refills 3, Maintenance, DEXCOM [id number], 03/25/20 11:50:00 EST, Supply Start Date: 03/25/20 [...] 5 Refills, Maintenance, 02/05/20 20:04:00 EST, Solution, [facility]/pharmacy #[id number], Partial fill upon patient [...] 03/05/20 14:48:00 EST, Route to Pharmacy Electronically, [facility]/pharmacy #[id number], Partial fill upon patient [...] type 2(Confirmed)1 Active Hypertension(Confirmed) Active Care Coordination [facility], Hakan Active Jeanne, CC (Confirmed) delivery(Confirmed) Active delivery(Confirmed) Active 1Not seem at [facility] since 08/12/2016. Multiple no show in our center. She is seen by other provider Dr Matt Gutierrez by pharmacy records. Social History Social History Type Response Smoking Status Never smoker entered on: 03/28/17 Sex
--- OUTSIDE RECORDS SUMMARY | 2022-03-31 18:21 | XMS_ITS | Continuity of Care Document ---
:1990 Author Organization [facility] Address [address] [place] [address]- Care Team Providers Name Role Phone Chirag CARLSON, Abdon Primary Care Physician [facility] Date(s): 12/13/21 - 01/21/22 [facility] [address] [place] [id number] Attending Physician: Lima Escalante MD Admitting Physician: Lima Escalante MD Referring Physician: Alba CARLSON, Cosme Allergies, Adverse Reactions, Alerts Substance Reaction Severity Status vancomycin1, 2 Tightness in throat Active morphine Itching Active Zosyn3 angioedema Severe Active 1Tolerates again chart: pt tolerated vanco on Tolerates cefazolin [...] Vaccine, Inactivated4 08/08/92 Given Poliovirus Vaccine, Inactivated5 11/28/92 Given Poliovirus Vaccine, Inactivated 07/05/89 Given Poliovirus [...] '943Admin Note: TD4 Admin Note: unknown exact [id number] Note: unknown exact date Medications Alcohol Pads [...] 12/13/21 14:16:00 EDT, Route to Pharmacy Electronically, [facility]/pharmacy #[id number], Partial fill upon patient request if the prescriptio... Start Date: 12/13/21 Status: OrderedCrestor 5 mg oral tablet 1 tablet = 5 mg, By Mouth, Daily, # 30 tablet, 0 Refills, Maintenance, 01/19/22 13:30:00 EST, Tablet, [facility]/pharmacy #[id number], Partial fill upon patient request if the prescription is for a schedule II opioid drug., 160, cm, 01/19/22 8:55:00 EST, Height, 9... Start Date: 01/19/22 Status: OrderedFreestyle Lancets See Instructions, # 600 [...] II opi... Start Date: 10/27/21 Status: OrderedhydrALAZINE 50 mg oral tablet 1 tablet = 50 mg, By Mouth, 3 times a day, # 90 tablet, 0 Refills, Maintenance, 01/16/22 19:30:00 EST, Tablet, Partial fill upon patient request if the prescription is for a schedule II opioid drug. Start Date: 01/16/22 Status: OrderedLasix 40 mg oral tablet 40 mg, 1, tablet, By Mouth, 2 times a day, # 90 tablet, Refills 0, Tot. Refills 0, Maintenance, 01/19/22 13:34:00 EST, Route to Pharmacy Electronically, [facility]/pharmacy #[id number], Partial fill upon patient request if the prescription is for a schedule II opi... Start Date: 01/19/22 Status: OrderedLevemir FlexTouch 100 units/mL subcutaneous solution See Instructions, INJECT 8 UNITS SUBCUTANEOUSLY AT BEDTIME FOR 30 DAYS, # 15 Unknown, 0 Refills, Maintenance, 12/19/21 16:07:00 EDT, [id number], 168, cm, 12/13/21 12:57:00 EDT, Height, 90, kg, 12/13/21 11:35:00 EDT, Dry Weight Start Date: 12/19/21 Status: Orderedlisinopril 10 mg oral tablet 10 mg, 1, tablet, By Mouth, Daily, # 30 tablet, Refills 0, Tot. Refills 0, Maintenance, 01/19/22 13:31:00 EST, Route to Pharmacy Electronically, [facility]/pharmacy #[id number], Partial fill upon patient request ifthe prescription is for a schedule II opioid drug... Start Date: 01/19/22 Status: Orderedmetoprolol 100 mg oral tablet, extended release 200 mg, 2, tablet, By Mouth, Daily, # 60 tablet, Refills 0, Tot. Refills 0, Maintenance, 01/19/22 13:29:00 EST, Route to Pharmacy Electronically, [facility]/pharmacy #[id number], Partial fill upon patient request if the prescription is for a schedule II opioid sheila... Start Date: 01/19/22 Status: OrderedNIFEdipine (Eqv-Procardia XL) 90 mg oral tablet, extended release 1 tablet = 90 mg, By Mouth, Daily, # 30 tablet, 0 Refills, Maintenance, 12/13/21 14:16:00 EDT, [facility]/pharmacy #[id number], Partial fill upon patient request [...] 12/13/21 14:17:00 EDT, Route to Pharmacy Electronically, [facility]/pharmacy #[id number], Partial fill upon elisa... Start Date: 12/13/21 Status: OrderedPeak Flow Meter (Adult) See Instructions, # 1 each, Maintenance, Use when wheezing or chest tightness. Call for peak flow less than 200., 08/24/21 15:17:00 EDT, Supply, 168, cm, 08/24/21 11:41:00 EDT, Height, 75.8, kg, 06/09/21 11:38:00 EDT, Dry Weight Start Date: 08/24/21 Status: OrderedPen [place], 30 G x 8 mm BD Ultra [...] 0 Refills, Maintenance, 08/24/21 11:43:00 EDT, Inhaler, [facility]/pharmacy #[id number], Partial fill upon patient request if the prescription is for a schedul... Start Date: 08/24/21 Status: OrderedSenexon-S 50 mg-8.6 mg oral tablet 2 tablet, By Mouth, 2 times a day, PRN Constipation, 0 Refills, Maintenance, 07/11/21 14:00:00 EDT, Partial fill upon patient request if the prescription is for a schedule II opioid drug. Start Date: 07/11/21 Status: Ordered Problem List Condition Confirmation Course [...] Dr Matt Gutierrez by pharmacy records.4Managed by [id number] by PCP with Tylenol Social History Social History Type Response Smoking Status Never (less than 100 in life time) entered on: 08/22/21 Sex Patient Care team information Care Team PersonnelName: Anuradha Morris RN Position: [facility] RN Member Role: Primary Care Nurse Name: Samantha Reynolds RN Position: S RN Member Role: Primary Care Nurse Name: Omega Gillespie RN Position: S RN Member Role: Primary Care Nurse Name: Paty Kelly RN Position: [facility] RN Member Role: Primary Care Nurse Name: Sonia Malone Position: S RN Member Role: Primary Care Nurse Name: Keira Desai RN Position: S RN Member Role: Primary Care Nurse Name: Gomez Moseley RN Position: [facility] RN Supv Member Role: Primary [...] Care Nurse Name: Inna Beckwith RN Position: S RN Member Role: Primary Care Nurse Name: Cady Araya RN Position: S RN Member Role: Primary Care Nurse Name: Abdon Beard MD Position: [facility] Outreach Member Role: PCP Address: Address: [address] [place] [address]- [place] Name: Michele Blancas DO Position: [facility] Renal MD Member Role: Lifetime Consulting Physician Address: Address: [address] [facility] [address] [facility] [place] [place] [address]- [place] Name: María Acosta RN Position: [facility] RN Member Role: Primary Care Nurse Name: Heather Correa RN Position: [facility] RN Member Role: Primary Care Nurse Name: Janelle Hall RN Position: [facility] RN Member Role: Primary Care Nurse Name: Alison Howard RN Position: [facility] RN Member Role: Primary Care Nurse Name: Farzana Sevilla Position: [facility] RN Member Role: Primary Care Nurse Name: Libertad Sim RN Position: [facility] RN Member Role: Primary Care Nurse Name: Javan Pimentel MD Position: [facility] Renal MD Member Role: Lifetime Consulting Physician Address: Address: [address] [place] [address] [address] [facility] [place] [address]- Name: Heather Pal RN Position: [facility] RN Member Role: Primary Care Nurse Name: Jody Rasmussen RN Position: [facility] RN Member Role: Primary Care Nurse Name: Mau Hazel RN Position: [facility] RN Member Role: Primary Care Nurse Name: Pedro Taylor RN Position: [facility] RN Member Role: Primary Care Nurse Name: Charlotte Singletary RN Position: [facility] OB RN Member Role: Primary Care Nurse Name: Kendall Coleman RN Position: [facility] RN Member Role: Primary Care Nurse Name: Nancy Fair RN Position: [facility] SN RN Member Role: Primary Care Nurse Name: Fernando Siddiqi MD Position: [facility] Renal MD Member Role: Lifetime Consulting Physician Address: Address: [address] [place] [address] [facility] [place] [address]- [place] Name: Lianne Byrnes RN Position: [facility] RN Member Role: Primary Care Nurse Name: Tona Jacome LPN Position: S RN Member Role: Primary Care Nurse Name: Tatiana Madrigal RN Position: S RN Member Role: Primary Care Nurse Name: Jose Callejas RN Position: [facility] RN Member Role: Primary Care Nurse Care Team Related PersonsName: LEONOR MCFARLAND Address: home [address] [place] [address] Name: REJI TAYLOR Address: home [address] [place] [address] Name: JEFF CHAPMAN Address: [address] Address: [address] [address] Name: ELI BONLILA Address: [address] [address]
--- OUTSIDE RECORDS SUMMARY | 2022-03-31 18:21 | XMS_ITS | Continuity of Care Document ---
:1990 Author Organization [facility] ic Address [address] [place] [address]- Care Team Providers Name Role Phone Brooks PEREZ, Brenden Martínez Primary Care Physician [facility] Date[facility]): 11[facility]10[facility]19 - 12/10/[address] [address]- [facility] Allergies, Adverse Reactions, Alerts Substance Reaction Severity [...] '943Admin Note: TD4 Admin Note: unknown exact [id number] Note: unknown exact date Medications bedside commode [...] 0.5 cc 31 G x 8 mm (516in) See Instructions, # 100 each, Refills 3, [...] Diabetes mellitus type 2(Confirmed)1 Active Care Coordination [facility], [place] Active Jeanne, CC (Confirmed) 1Not seem at [facility] since 08/12/2016. Multiple no show in our center. She is seen by other provider Dr Matt Gutierrez by pharmacy records. Social History Social History Type Response Smoking Status Never smoker entered on: 03/28/17 Sex
--- OUTSIDE RECORDS SUMMARY | 2022-03-31 18:21 | XMS_ITS | Continuity of Care Document ---
:1990 Author Organization [facility] Address [address] [place] [address]- Care Team Providers Name Role Phone Chirag CARLSON, Abdon Primary Care Physician [facility] Date(s): 12/13/21 - 12/13/[address] [address] Discharge Disposition: A-D/C Home Attending Physician: Cosme Willis MD Admitting Physician: Alba CARLSON, Cosme Referring Physician: Alba CARLSON, Cosme Allergies, Adverse [...] '943Admin Note: TD4 Admin Note: unknown exact [id number] Note: unknown exact date Medications Alcohol Pads [...] 12/13/21 14:16:00 EDT, Route to Pharmacy Electronically, [facility]/pharmacy #[id number], Partial fill upon patient request if the prescriptio... Start Date: 12/13/21 Status: OrderedCoreg 25 mg oral tablet 50 mg, 2, tablet, By Mouth, 2 times a day, # 120 tablet, Refills 0, Tot. Refills 0, Maintenance, 12/13/21 14:16:00 EDT, Route to Pharmacy Electronically, [facility]/pharmacy #[id number], Partial fill upon patient request if the [...] 12/13/21 14:16:00 EDT, Route to Pharmacy Electronically, [facility]/pharmacy #[id number], Partial fill upon patient request if the prescription is for a schedule II op... Start Date: 12/13/21 Status: OrderedLevemir FlexTouch 100 units/mL subcutaneous solution = 10 units, Subcutaneous Injection, Daily at bedtime, # 15 mL, 0 Refills, Maintenance, 08/24/21 11:26:00 EDT, Injection, [facility]/pharmacy #[id number], Partial fill upon patient request if the prescription is fora schedule II opioid drug., 168, cm, 08/24/21 10:... Start Date: 08/24/21 Stop Date: 09/23/21 Status: OrderedNIFEdipine (Eqv-Procardia XL) 90 mg oral tablet, extended release 1 tablet = 90 mg, By Mouth, Daily, # 30 tablet, 0 Refills, Maintenance, 12/13/21 14:16:00 EDT, [facility]/pharmacy #[id number], Partial fill upon patient request if the prescription is for a schedule II opioid drug., 168, cm, 12/13/21 12:57:00 EDT, Height, 90, kg,... Start Date: 12/13/21 Status: OrderedoxyCODONE 5 mg oral tablet 5 mg, Tablet, By Mouth, Every 6 hours, PRN for Pain , Severe, Routine, 12/13/21 14:11:00 EDT Start Date: 12/13/21 Stop Date: 12/20/21 Status: OrderedoxyCODONE 5 mg oral tablet 5 mg, 1, tablet, By Mouth, Every 6 hours, PRN, for severe post-operative pain, # 10 tablet, Refills 0, Tot. Refills 0, Maintenance, as needed for pain, 12/13/21 14:17:00 EDT, Route to Pharmacy Electronically, [facility]/pharmacy #[id number], Partial fill upon elisa... Start Date: 12/13/21 Status: OrderedPeak Flow Meter (Adult) See Instructions, # 1 each, Maintenance, Use when wheezing or chest tightness. Call for peak flow less than 200., 08/24/21 15:17:00 EDT, Supply, 168, cm, 08/24/21 11:41:00 EDT, Height, 75.8, kg, 06/09/21 11:38:00 EDT, Dry Weight Start Date: 08/24/21 Status: OrderedPen [place], 30 G x 8 mm BD Ultra [...] 0 Refills, Maintenance, 08/24/21 11:43:00 EDT, Inhaler, [facility]/pharmacy #[id number], Partial fill upon patient request [...] 12/13/21 14:17:00 EDT, Route to Pharmacy Electronically, [facility]/pharmacy #[id number], Partial fill upon patient request if the prescription is f... Start Date: 12/13/21 Status: OrderedTylenol 325 mg oral tablet 975 mg, Tablet, By Mouth, Every 6 hours, PRN for Pain , Moderate, Routine, 12/13/21 14:11:00 EDT Start Date: 12/13/21 Stop Date: 01/12/22 Status: OrderedTylenol Extra Strength 500 mg oral tablet 2 tablet = 1,000 mg, By Mouth, Every 4 hours, PRN for pain, # 120 tablet, 0 Refills, Maintenance, 12/13/21 14:17:00 EDT, Tablet, [facility]/pharmacy #[id number], Partial fill upon patient request [...] Dr Matt Gutierrez by pharmacy records.4Managed by [id number] by PCP with Tylenol Vital Signs Most recent to oldest 1 2 3 [Reference Range]: Height 168 cm (12/13/21 12:57 PM) Pulse Rate [55-90 bpm] 93 bpm *H* (12/13/21 1:03 PM) Blood Pressure [90-138/55-84 144/90 mm Hg mm Hg] *H* (12/13/21 1:03 PM) Respiratory Rate [16-30 16 br/min 16 br/min 18 br/mi n br/min] (12/13/21 2:57 PM) (12/13/21 2:57 PM) (12/13/21 1:57 PM) Temperature [96.8-100.4 98.5 DegF DegF] (12/13/21 12:56 PM) Blood pressure sites Arm, left (12/13/21 1:03 PM) Temperature Route Oral (12/13/21 12:56 PM) Social History Social History Type Response Smoking Status Never (less than 100 in life time) entered on: 08/22/21 Sex Patient Care team information PersonnelName: Abdon Beard MD Address: Address: [address] [place] [address]
--- OUTSIDE RECORDS SUMMARY | 2022-03-31 18:21 | XMS_ITS | Continuity of Care Document ---
:1990 Author Organization [facility] Address [address] [place] [address]- Care Team Providers Name Role Phone Chirag CARLSON, Abdon Primary Care Physician [facility] Date[facility]s): 10/07/21 - 11/16/[address] [address] Attending Physician: Nupur Box NP Admitting Physician: Nupur Box NP Referring Physician: Nupur Box NP Allergies, Adverse Reactions, Alerts Substance Reaction Severity [...] '943Admin Note: TD4 Admin Note: unknown exact [id number] Note: unknown exact date Medications Alcohol Pads [...] 08/24/21 11:43:00 EDT, Route to Pharmacy Electronically, [facility]/pharmacy #[id number], Partial fill upon patient request ifthe prescription is for a schedule II opioid drug... Start Date: 08/24/21 Status: Orderedaspirin 81 mg oral delayed release tablet 2 tablet = 162 mg, By Mouth, Daily, # 90 tablet, 3 Refills, Maintenance, 10/05/21 12:28:00 EDT, CR Tablet, [facility]/pharmacy #[id number], Partial fill upon [...] II opi... Start Date: 10/27/21 Status: OrderedLasix 20 mg oral tablet 20 mg, 1, tablet, By Mouth, Every other day, Follow-up with your primary care doctor for further refills., # 45 tablet, Refills 3, Tot. Refills 3, Maintenance, 08/24/21 11:44:00 EDT, Route to Pharmacy Electronically, [facility]/pharmacy #[id number], Partial fill u... Start Date: 08/24/21 Status: OrderedLevemir FlexTouch 100 units/mL subcutaneous solution = 10 units, Subcutaneous Injection, Daily at bedtime, # 15 mL, 0 Refills, Maintenance, 08/24/21 11:26:00 EDT, Injection, [facility]/pharmacy #[id number], Partial fill upon patient request if the prescription is fora schedule II opioid drug., 168, cm, 08/24/21 10:... Start Date: 08/24/21 Stop Date: 09/23/21 Status: OrderedMetoprolol Tartrate 25 mg oral tablet 2 tablet = 50 mg, By Mouth, 2 times a day, # 120 each, 4 Refills, Maintenance, 09/07/21 18:00:00 EDT, Tablet, [facility]/pharmacy #[id number], Partial fill upon patient request if the prescription is for a scheduleII opioid drug., 168, cm, 09/07/21 10:41:00 EDT,... Start Date: 09/07/21 Status: Orderednitrofurantoin macrocrystals 100 mg oral capsule See Instructions, 1 capsule By Mouth twice daily x 7 days, # 14 each, 0 Refills, Acute 11/26/21 15:27:00 EDT, 10/28/21 15:26:00 EDT, [facility]/pharmacy #[id number], Partial fill upon patient request if the prescription is for a schedule II opioid drug., 168, cm,... Start Date: 10/28/21 Stop Date: 11/26/21 Status: OrderedoxyCODONE 5 mg oral capsule 1 [...] Dry Weight Start Date: 08/24/21 Status: OrderedPen [place], 30 G x 8 mm BD Ultra [...] Refills, Maintenance, 08/24/21 11:27:00 EDT, Chew Tablet, [facility]/pharmacy #[id number], Partial fill upon patient request if the prescription is for a schedule II opioid drug., 1 tablet Chew Daily, 168, cm, 08/24/21 10:36:0... Start Date: 08/24/21 Status: OrderedProAir HFA 90 mcg/inh inhalation aerosol See Instructions, PRN Wheezing/Shortness of Breath, Inhale 2 puff every 4 to 6 hours as needed, # 18Gm, 0 Refills, Maintenance, 08/24/21 11:43:00 EDT, Inhaler, [facility]/pharmacy #[id number], Partial fill upon [...] Dates Status Health Status Informant Asthma(Confirmed)1 Active At risk for aneuploidy(Confirmed) Active Blindness of right eye(Confirmed) Active Cardiac disease during , Active antepartum(Confirmed) H/O Chest pain(Confirmed) Active CKD (chronic kidney disease), stage Active III(Confirmed) IUFD at 20 weeks or more of Active gestation(Confirmed) Depression(Confirmed)2 Active Diabetes mellitus type 2(Confirmed)3 Active Heart failure with preserved ejection Active fraction, NYHA class I(Confirmed) Hypertension complicating Active (Confirmed) Hypertension(Confirmed)4 Active Migraine(Confirmed)5 Active Obese class I(Confirmed) Active Care Coordination [facility], [place] Active Angel, CC (Confirmed) Pre-existing diabetes mellitus Active affecting , antepartum(Confirmed) Poor vision(Confirmed)6 Active 1Managed by PCP. WEll controlled.2Self-manages. States currently stable. No medications.3Not seem at [facility] since 08/12/2016. Multiple no show in our center. She is seen by other provider Dr Matt Gutierrez by pharmacy records.4Managed by [id number] by PCP with [id number] eye, states sees shadows and has blurry vision. Last eye doctor appointment was several years ago. Social History Social History Type Response Smoking Status Never (less than 100 in life time) entered on: 08/22/21 Sex Care Team PersonnelName: Abdon Beard MD Address: [address] [place] [address]-
--- OUTSIDE RECORDS SUMMARY | 2022-03-31 18:21 | XMS_ITS | Continuity of Care Document ---
:1990 Author Organization [facility] Address [address] [place] [id number]- Care Team Providers Name Role Phone Chirag CARLSON, Abdon Primary Care Physician Encounter [place] Date(s): 12/07/21 - 01/08/[address] [address] Attending Physician: Tona Sevilla MD Referring Physician: Tona Sevilla MD Allergies, Adverse Reactions, Alerts Substance Reaction Severity Status vancomycin1, 2 Tightness in throat Active Zosyn3 angioedema Severe Active morphine Itching Active 1Tolerates again chart: pt tolerated vanco [...] '943Admin Note: TD4 Admin Note: unknown exact [id number] Note: unknown exact date Medications Alcohol Pads [...] 12/13/21 14:16:00 EDT, Route to Pharmacy Electronically, [facility]/pharmacy #[id number], Partial fill upon patient request if the prescriptio... Start Date: 12/13/21 Status: OrderedCoreg 25 mg oral tablet 50 mg, 2, tablet, By Mouth, 2 times a day, # 120 tablet, Refills 0, Tot. Refills 0, Maintenance, 12/13/21 14:16:00 EDT, Route to Pharmacy Electronically, [facility]/pharmacy #[id number], Partial fill upon patient request if the [...] 12/13/21 14:16:00 EDT, Route to Pharmacy Electronically, [facility]/pharmacy #[id number], Partial fill upon patient request if the prescription is for a schedule II op... Start Date: 12/13/21 Status: OrderedLevemir FlexTouch 100 units/mL subcutaneous solution See Instructions, INJECT 8 UNITS SUBCUTANEOUSLY AT BEDTIME FOR 30 DAYS, # 15 Unknown, 0 Refills, Maintenance, 12/19/21 16:07:00 EDT, [id number], 168, cm, 12/13/21 12:57:00 EDT, Height, 90, kg, 12/13/21 11:35:00 EDT, Dry Weight Start Date: 12/19/21 Status: OrderedNIFEdipine (Eqv-Procardia XL) 90 mg oral tablet, extended release 1 tablet = 90 mg, By Mouth, Daily, # 30 tablet, 0 Refills, Maintenance, 12/13/21 14:16:00 EDT, [facility]/pharmacy #[id number], Partial fill upon patient request if [...] 12/13/21 14:17:00 EDT, Route to Pharmacy Electronically, [facility]/pharmacy #[id number], Partial fill upon elisa... Start Date: 12/13/21 Status: OrderedPeak Flow Meter (Adult) See Instructions, # 1 each, Maintenance, Use when wheezing or chest tightness. Call for peak flow less than 200., 08/24/21 15:17:00 EDT, Supply, 168, cm, 08/24/21 11:41:00 EDT, Height, 75.8, kg, 06/09/21 11:38:00 EDT, Dry Weight Start Date: 08/24/21 Status: OrderedPen [place], 30 G x 8 mm BD Ultra [...] 0 Refills, Maintenance, 08/24/21 11:43:00 EDT, Inhaler, [facility]/pharmacy #[id number], Partial fill upon patient request if [...] 12/13/21 14:17:00 EDT, Route to Pharmacy Electronically, [facility]/pharmacy #[id number], Partial fill upon patient request if the prescription is f... Start Date: 12/13/21 Status: OrderedTylenol Extra Strength 500 mg oral tablet 2 tablet = 1,000 mg, By Mouth, Every 4 hours, PRN for pain, # 120 tablet, 0 Refills, Maintenance, 12/13/21 14:17:00 EDT, Tablet, [facility]/pharmacy #[id number], Partial fill upon patient request if [...] Dr Matt Gutierrez by pharmacy records.4Managed by [id number] by PCP with Tylenol Social History Social History Type Response Smoking Status Never (less than 100 in life time) entered on: 08/22/21 Sex Patient Care team information Care Team PersonnelName: Anuradha Morris RN Position: S RN Member Role: Primary Care Nurse Name: Omega Gillespie RN Position: S RN Member Role: Primary Care Nurse Name: Paty Kelly RN Position: S RN Member Role: Primary Care Nurse Name: Sonia Malone Position: S RN Member Role: Primary Care Nurse Name: Keira Desai RN Position: S RN Member Role: Primary Care Nurse Name: Gomze Moseley RN Position: [facility] RN Supv Member Role: Primary Care Nurse Name: Vashti Bruce RN Position: S RN Member Role: Primary Care Nurse Name: Raghav Granger Position: S RN Member Role: Primary Care Nurse Name: Cassy Caraballo RN Position: [facility] RN Member Role: Primary Care Nurse Name: Lisa Vines RN Position: S RN Member Role: Primary Care Nurse Name: Larissa Barnett RN Position: S RN Member Role: Primary Care Nurse Name: Inna Beckwith RN Position: [facility] RN Member Role: Primary Care Nurse Name: Cady Araya RN Position: S RN Member Role: Primary Care Nurse Name: Abdon Beard MD Position: S Outreach Member Role: PCP Address: Address: [address] [place] [id number]- [place] Name: Michele Blancas DO Position: [facility] Renal MD Member Role: Lifetime Consulting Physician Address: Address: [address] [place], [place] [address] [place] [address]- Name: María Acosta RN Position: S RN Member Role: Primary Care Nurse Name: Heather Correa RN Position: S RN Member Role: Primary Care Nurse Name: Janelle Hall RN Position: S RN Member Role: Primary Care Nurse Name: Alison Howard RN Position: S RN Member Role: Primary Care Nurse Name: Farzana Sevilla Position: S RN Member Role: Primary Care Nurse Name: Libertad Sim RN Position: S RN Member Role: Primary Care Nurse Name: Javan Pimentel MD Position: [facility] Renal MD Member Role: Lifetime Consulting Physician Address: Address: [address] [place] [address] [facility] [place] [address]- Name: Heather Pal RN Position: [facility] RN Member Role: Primary Care Nurse Name: Jody Rasmussen RN Position: [facility] RN Member Role: Primary Care Nurse Name: Mau Hazel RN Position: [facility] RN Member Role: Primary Care Nurse Name: Pedro [place] RN Position: S RN Member Role: Primary Care Nurse Name: Charlotte Singletary RN Position: [facility] OB RN Member Role: Primary Care Nurse Name: Kendall Coleman RN Position: [facility] RN Member Role: Primary Care Nurse Name: Nancy Fair RN Position: [facility] SN RN Member Role: Primary Care Nurse Name: Fernando Siddiqi MD Position: [facility] Renal MD Member Role: Lifetime Consulting Physician Address: Address: [address] [place] [address] [facility] [place], [place] [address] Name: Lianne Byrnes RN Position: S RN Member Role: Primary Care Nurse Name: Tona Jacome LPN Position: [facility] RN Member Role: Primary Care Nurse Name: Tatiana Madrigal RN Position: S RN Member Role: Primary Care Nurse Care Team Related PersonsName: ADI MCFARLANDO Address: home [address] [place] [address] Name: REJI [place] Address: home [address] [place] [address] Name: JEFF CHAPMAN Address: [address] Address: home [address] [address] [place] Name: ELI BONILLA
--- OUTSIDE RECORDS SUMMARY | 2022-03-31 18:21 | XMS_ITS | Continuity of Care Document ---
:[address] [facility] Address [address] [place] [address]- Care Team Providers Name Role Phone Abdon Beard MD Primary Care Physician [facility]counter [facility] Date(s): 04/06/21 - 05/06/21 [facility] [address] [place], [place] [address] Attending Physician: Michael Marquez Admitting Physician: Michael Marquez Referring Physician: Admtr, Michael Allergies, Adverse Reactions, Alerts Substance Reaction Severity [...] '943Admin Note: TD4 Admin Note: unknown exact [id number] Note: unknown exact date Medications amLODIPine 10 mg oral tablet 10 mg, 1, tablet, By Mouth, Daily, # 30 tablet, Refills 5, Tot. Refills 5, Maintenance, 03/31/21 14:26:00 EST, Route to Pharmacy Electronically, [facility]/pharmacy #[id number], Partial fill upon patient request ifthe prescription is for a schedule II opioid drug... Start Date: 03/31/21 Status: Orderedatorvastatin 40 mg oral tablet 1 tablet = 40 mg, By Mouth, Daily at bedtime, Follow-up with your primary care doctor for further refills., # 30 tablet, 1 Refills, Maintenance, 04/26/21 14:51:00 EST, Tablet, [facility],Partial fill upon patient request if the prescrip... Start Date: 04/26/21 Status: Ordereddoxycycline monohydrate 100 mg oral capsule = 100 mg, By Mouth, Daily at bedtime, Take with fluids. May take with food to minimize abdominal discomfort. Take at bedtime or 6 hours after iron tablet., # 30 each, 0 Refills, Maintenance, 04/27/21 7:07:00 EST, Capsule, [facility], Par... Start Date: 04/27/21 Status: [...] 3 Refills, Maintenance, 11/17/20 10:19:00 EDT, Tablet, [facility]/pharmacy #[id number], Partial fillupon patient request if the prescription is for a... Start Date: 11/17/20 Status: OrderedLasix 20 mg oral tablet 20 mg, 1, tablet, By Mouth, Daily, Follow-up with your primary care doctor for further refills., # 30 tablet, Refills 0, Tot. Refills 0, Maintenance, 04/26/21 14:52:00 EST, Route to Pharmacy Electronically, [facility], Partial fill upon... Start Date: 04/26/21 Status: OrderedLevemir FlexTouch 100 units/mL subcutaneous solution INJECT 43 UNITS SUBCUTANEOUSLY ONCE DAILY Start Date: 04/23/21 Status: Orderedlidocaine 5% topical film 1 patch, Topically, Daily, PRN Pain , Mild, remove after 12 hours, # 13 each, 0 Refills, Maintenance, 04/19/21 11:26:00 EST, Film, [facility]/pharmacy #[id number], Partial fill upon patient request if the prescription is for a schedule II opioid drug., 1 patch Top... Start Date: 04/19/21 Status: Orderedmetoprolol 25 mg oral tablet 25 mg, 1, tablet, By Mouth, 2 times a day, Follow-up with your primary care doctor for further refills., # 60 tablet, Refills 1, Tot. Refills 1, Maintenance, 04/26/21 14:52:00 EST, Route to Pharmacy Electronically, [facility], Partial fi... Start Date: 04/26/21 Status: Orderednitroglycerin 0.4 mg sublingual tablet 1 tablet = 0.4 mg, Sublingual, Every 5 minutes, PRN as needed for chest pain, not to exceed 3 doses/15 min--if pain persists, seek medical attention, # 25 tablet, 0 Refills, Maintenance, 03/31/21 14:26:00 EST, Tablet, [facility]/pharmacy #[id number], Partial fill... Start Date: 03/31/21 Status: [...] type 2(Confirmed)1 Active Hypertension(Confirmed) Active Care Coordination [facility], [place] Active Jeanne, CC (Confirmed) delivery(Confirmed) Active delivery(Confirmed) Active 1Not seem at [facility] since 08/12/2016. Multiple no show in our center. She is seen by other provider Dr Matt Gutierrez by pharmacy records. Social History Social History Type Response Smoking Status Never (less than 100 in life time) entered on: 04/23/21 Sex
--- OUTSIDE RECORDS SUMMARY | 2022-03-31 18:21 | XMS_ITS | Continuity of Care Document ---
:1990 Author Organization [facility] Address [address] [place] [address]- Care Team Providers Name Role Phone Abdon Beard MD Primary Care Physician [place] [facility] [place]): 04/19/21 - 04/19/[address] [address]- Encounter Diagnosis Fall (Final) - 04/19/21 Discharge Disposition: A-D/C Home Attending Physician: Akil Marte MD Admitting Physician: Akil Marte MD Referring Physician: Not on Staff, Referring [...] '943Admin Note: TD4 Admin Note: unknown exact [id number] Note: unknown exact date Medications amLODIPine 10 mg oral tablet 10 mg, 1, tablet, By Mouth, Daily, # 30 tablet, Refills 5, Tot. Refills 5, Maintenance, 03/31/21 14:26:00 EST, Route to Pharmacy Electronically, [facility]/pharmacy #[id number], Partial fill upon patient request ifthe prescription is for a schedule II opioid drug... Start Date: 03/31/21 Status: Orderedcefpodoxime 200 mg oral tablet 1 tablet = 200 mg, By Mouth, Every 12 hours, for 7 days, # 14 tablet, 0 Refills, Acute 04/25/21 15:24:00 EST, 04/18/21 15:24:00 EST, Tablet, [facility]/pharmacy #[id number], Partial fill upon patient request if theprescription is for a schedule II opioid drug., 1... Start Date: 04/18/21 Stop Date: 04/25/21 Status: Orderedcephalexin monohydrate 500 mg oral capsule 1 capsule = 500 mg, By Mouth, Every 12 hours, TO START ON 03/12/21, TO PREVENT INFECTION FROM RETURNING, # 180 capsule, 0 Refills, Acute 06/10/21 15:59:00 EDT, 02/28/21 15:59:00 EST, Capsule, [facility], Partial fill upon patient request... Start Date: 02/28/21 Stop Date: 06/10/21 Status: Ordereddoxycycline hyclate 100 mg oral capsule 1 capsule = 100 mg, By Mouth, Every 12 hours, for 7 days, with fluids may take with food to minimizeabdominal discomfort once this is completed, stay on suppressive antibiotics 100mg daily, # 14 capsule, 0 Refills, Acute 04/25/21 15:28:00 EST, 02... Start Date: 04/18/21 Stop Date: 04/25/21 Status: Ordereddoxycycline monohydrate 100 mg oral tablet = 100 mg, By Mouth, Daily at bedtime, Chronic suppressive therapy. Take daily at bedtime or 6 hours after iron tablet, # 30 tablet, 1 Refills, Maintenance, 03/26/21 16:17:00 EST, Tablet, [id number], Partial fill upon [...] Maintenance, 11/17/20 10:19:00 EDT, Tablet, [facility]/pharmacy #[id number], Partial fillupon patient request if the prescription is for a... Start Date: 11/17/20 Status: OrderedLevemir FlexTouch 100 units/mL subcutaneous solution = 43 units, Subcutaneous Injection, Daily Start Date: 04/02/21 Status: Orderedlidocaine 5% topical film 1 patch, Topically, Daily, PRN Pain , Mild, remove after 12 hours, # 13 each, 0 Refills, Maintenance, 04/19/21 11:26:00 EST, Film, [facility]/pharmacy #[id number], Partial fill upon patient request if [...] 0 Refills, Maintenance, 03/31/21 14:26:00 EST, Tablet, [id number], Partial fill... Start Date: 03/31/21 Status: OrderedNovoLOG FlexPen 100 units/mL subcutaneous solution See Instructions, Take 11-21 units, 3 times daily before meals. E11.65. 90-day supply., # 75 mL, 3 Refills, Maintenance, 11/17/20 10:20:00 EDT, Solution, [id number], Partial fill upon patient request if the prescription is for a schedule II op... Start Date: 11/17/20 Status: OrderedoxyCODONE 5 mg oral tablet 5 mg, 1, tablet, By Mouth, Every 6 hours, PRN, Refills 0, Tot. Refills 0, Maintenance, as needed forpain, 04/02/21 16:10:00 EST, Partial fill upon patient request if the prescription is for a scheduleII opioid drug. Start Date: 04/02/21 Status: OrderedoxyCODONE 5 mg oral tablet 5 mg, Tablet, By Mouth, STAT, 04/19/21 9:09:00 EST Start Date: 04/19/21 Stop Date: 04/19/21 Status: Completedsertraline 25 mg oral tablet 1 tablet = [...] type 2(Confirmed)1 Active Hypertension(Confirmed) Active Care Coordination [facility], [place] Active Angel, CC (Confirmed) delivery(Confirmed) Active delivery(Confirmed) Active 1Not seem at [facility] since 08/12/2016. Multiple no show in our center. She is seen by other provider Dr Matt Gutierrez by pharmacy records. Results Radiology Reports Exam Date Time Procedure Performing Provider Status 04/19/21 10:50 AM Pelvis 1 or 2 Views Lesvia Driscoll; Auth (Ve rified) Notes:(Pelvis 1 or 2 Views) Reason For Exam: PainRESULT: Pelvis 1 or 2 Views AP pelvis dated April 19, 2021. No prior studies are available. HISTORY: Pain. FINDINGS: This examination shows no evidence of fracture or dislocation. There is no significant loss of joint space. IMPRESSION: No evidence of acute osseous abnormality. Examination [address]. Thank you for allowing me to participate in the care of this patient. WSN: [id number] Ordering Physician: Antoine Cespedes V Dictated By: Kareem Ackerman MD Dictated Date/Time: 04/19/21 10:54 a Reviewed By: Kareem Ackerman MD Signed By: Kareem Ackerman MD Signed Date/Time: 04/19/21 10:54 am Transcribed By: ALEXIS Transcribed Date/Time: 04/19/21 10:54 am Vital Signs Most recent to oldest 1 2 3 [Reference Range]: Height 168 cm 168 cm (04/19/21 9:37 AM) (04/19/21 6:26 AM) Weight 81 kg 81 kg (04/19/21 9:37 AM) (04/19/21 6:26 AM) Oxygen Saturation [94-100 %] 100 % 98 % 100 % (04/19/21 12:00 PM) (04/19/21 9:37 AM) (04/19/21 6: 26 AM) Pulse Rate [55-90 bpm] 97 bpm 98 bpm 107 bpm *H* *H* *H* (04/19/21 12:00 PM) (04/19/21 9:37 AM) (04/19/21 6: 26 AM) Body Mass Index [18.5-24.99] 28.7 *H* (04/19/21 9:37 AM) Blood Pressure [90-138/55-84 171/97 mm Hg 153/71 mm Hg 192 /92 mm Hg mm Hg] *H* *H* *H* (04/19/21 12:00 PM) (04/19/21 9:37 AM) (04/19/21 6: 26 AM) Respiratory Rate [16-30 19 br/min 22 br/min 16 br/mi n br/min] (04/19/21 12:00 PM) (04/19/21 9:39 AM) (04/19/21 9: 37 AM) Temperature [96.8-100.4 DegF] 97.9 DegF 98.2 DegF (04/19/21 12:00 PM) (04/19/21 6:26 AM) Mode of Delivery (Oxygen) Room air Room air (04/19/21 12:00 PM) (04/19/21 6:26 AM) Blood pressure sites Arm, right (04/19/21 6:26 AM) Temperature Route Oral Oral (04/19/21 12:00 PM) (04/19/21 6:26 AM) Dry Weight 81 kg 81 kg (04/19/21 9:37 AM) (04/19/21 6:26 AM) Social History Social History Type Response Smoking Status Never smoker entered on: 03/28/17 Sex
--- OUTSIDE RECORDS SUMMARY | 2022-03-31 18:21 | XMS_ITS | Continuity of Care Document ---
:1990 Author Organization [facility] ic Address [address] [place] [address]- Care Team Providers Name Role Phone Abdon Beard MD Primary Care Physician Encounter [facility] Date(s): 07/26/21 - 08/25/[address] [address] Allergies, Adverse Reactions, Alerts Substance Reaction [...] '943Admin Note: TD4 Admin Note: unknown exact [id number] Note: unknown exact date Medications acetaminophen 325 [...] 08/24/21 11:43:00 EDT, Route to Pharmacy Electronically, [facility]/pharmacy #[id number], Partial fill upon patient request ifthe prescription is for a schedule II opioid drug... Start Date: 08/24/21 Status: Orderedduloxetine 30 mg oral enteric coated capsule 1 capsule = 30 mg, By Mouth, 2 times a day, # 180 capsule, 3 Refills, Maintenance, 08/24/21 11:44:00EDT, Capsule, [facility]/pharmacy #[id number], Partial fill upon patient request if [...] 08/24/21 11:44:00 EDT, Route to Pharmacy Electronically, [facility]/pharmacy #[id number], Partial fill u... Start Date: 08/24/21 Status: OrderedLevemir FlexTouch 100 units/mL subcutaneous solution = 8 units, Subcutaneous Injection, Daily at bedtime, # 10 mL, 0 Refills, Maintenance, 08/24/21 11:26:00 EDT, Injection, [facility]/pharmacy #[id number], Partial fill upon patient request if the prescription is for a schedule II opioid drug., 168, cm, 08/24/21 10:3... Start Date: 08/24/21 Stop Date: 09/23/21 Status: OrderedMetoprolol Tartrate 25 mg oral tablet 1.5 tablet = 37.5 mg, By Mouth, 2 times a day, # 90 tablet, 3 Refills, Maintenance, 08/24/21 11:44:00 EDT, Tablet, [facility]/pharmacy #[id number], Partial fill upon patient request if [...] Dry Weight Start Date: 08/24/21 Status: OrderedPen [place], 30 G x 8 mm BD Ultra [...] Refills, Maintenance, 08/24/21 11:27:00 EDT, Chew Tablet, [facility]/pharmacy #[id number], Partial fill upon patient request if the [...] a schedule II opioid drug., 168, cm, 08/22/21 13:44:... Start Date: 08/23/21 Stop Date: [...] Active Obese class I(Confirmed) Active Care Coordination [facility], [place] Active Angel, CC (Confirmed) Pre-existing diabetes mellitus Active affecting , antepartum(Confirmed) Poor vision(Confirmed)6 Active 1Managed by PCP. WEll controlled.2Self-manages. States currently stable. No medications.3Not seem at [facility] since 08/12/2016. Multiple no show in our center. She is seen by other provider Dr Matt Gutierrez by pharmacy records.4Managed by [id number] by PCP with [id number], states sees shadows and has blurry vision. Last eye doctor appointment was several years ago. Social History Social History Type Response Smoking Status Never (less than 100 in life time) entered on: 08/22/21 Sex
--- OUTSIDE RECORDS SUMMARY | 2022-03-31 18:21 | XMS_ITS | Continuity of Care Document ---
:1990 Author Organization [facility] Address [address] [place] [address]- Care Team Providers Name Role Phone Not on Staff, PCP Primary Care Physician Unavailable Encounter [facility] Date(s): 03/17/20 - 04/16/20 [facility] [address] [place], [place] [address] Allergies, Adverse Reactions, Alerts Substance [...] '[id number] Note: TD4 Admin Note: unknown exact [id number] Note: unknown exact date Medications aspirin 81 mg oral delayed release tablet 162 mg, 2, tablet, By Mouth, Daily, To begin taking at 12 weeks gestational age - Approx. Apr 14 2020, # 30 tablet, Refills 0, Tot. Refills 0, Maintenance, 03/05/20 14:49:00 EST, Route to Pharmacy Electronically, [facility]/pharmacy #[id number], Partial fill upo... Start Date: 03/05/20 Status: Orderedbedside commode bedside commode, See Instructions, # 1 each, Refills 0, Tot. Refills 0, Maintenance, DX DM E 11.9 using at bedside, 11/14/17 17:17:55 EDT, Compound Start Date: 11/14/17 Status: OrderedDEXCOM G6 INDUSTRIAL/ORGANIZATIONAL PSYCHOLOGIST DEXCOM G6 INDUSTRIAL/ORGANIZATIONAL PSYCHOLOGIST, See Instructions, # 1 each, Refills 0, Tot. Refills 0, Maintenance, Use to monitor blood lgucose levels [facility]: [id number] E10.9, 04/06/20 12:07:00 EST, Supply, 170, cm, 03/05/20 14:05:00 EST, Height, 82, kg, 03/05/20 14:53:00... Start Date: 04/06/20 Status: OrderedDEXCOM G6 SENSOR, 3 PACK DEXCOM G6 SENSOR, 3 PACK, See Instructions, # 3 each, Refills 3, Tot. Refills 3, Maintenance, Use tomonitor blood sugar. E10.9 [facility] [id number], 04/06/20 12:07:00 EST, Supply, 170, cm, 03/05/20 14:05:00 EST, Height, 82, kg, 03/05/20 14:53:00 EST... Start Date: 04/06/20 Status: OrderedDEXCOM G6 TRANSMITTER DEXCOM G6 TRANSMITTER, See Instructions, # 2 each, Refills 3, Tot. Refills 3, Maintenance, DEXCOM [id number], 04/06/20 12:07:00 EST, Supply, 170, cm, 03/05/20 14:05:00 EST, Height, 82, kg, 03/05/2113:53:00 EST, Dry Weight Start Date: 04/06/20 Status: OrderedDME shower chair DME shower chair, [...] 5 Refills, Maintenance, 02/05/20 20:04:00 EST, Solution, [facility]/pharmacy #[id number], Partial fill upon [...] 03/05/20 14:48:00 EST, Route to Pharmacy Electronically, [facility]/pharmacy #[id number], Partial fill upon patient request if the prescription is for a s... Start Date: 03/05/20 Status: OrderedNovoLOG FlexPen 100 units/mL subcutaneous solution See Instructions, Max daily dose 50 units, per sliding scale. E11.65, # 30 mL, 5 Refills, Maintenance, 02/05/20 14:37:00 EST, Solution, [facility]/pharmacy #[id number], Partial fill upon patient request if the prescription is for a schedule II opioid drug., 170, c... Start Date: 02/05/20 Status: OrderedPrenatal Multivitamins with Folic Acid 1 mg oral tablet 1 tablet, By Mouth, Daily, # 90 tablet, 2 Refills, Maintenance, 03/05/20 14:51:00 EST, Tablet, [facility]/pharmacy #[id number], Partial fill upon patient request [...] 0 Refills, Maintenance, 02/05/20 14:37:00 EST, Solution, [facility]/pharmacy #[id number], Partial fill upon patient request if the... Start Date: 02/05/20 Status: Ordered Problem List Condition Effective Dates Status Health Status Informant Asthma(Confirmed) Active Blindness of right eye(Confirmed) Active Blood group A Rh(D) Active positive(Confirmed) IUFD at 20 weeks or more of Active gestation(Confirmed) Depression(Confirmed) Active Diabetes mellitus type 2(Confirmed)1 Active Hypertension(Confirmed) Active Care Coordination [facility], [place] Active Jeanne, CC (Confirmed) delivery(Confirmed) Active delivery(Confirmed) Active 1Not seem at [facility] since 08/12/2016. Multiple no show in our center. She is seen by other provider Dr Matt Gutierrez by pharmacy records. Social History Social History Type Response Smoking Status Never smoker entered on: 03/28/17 Sex
--- OUTSIDE RECORDS SUMMARY | 2022-03-31 18:21 | XMS_ITS | Continuity of Care Document ---
:1990 Author Organization [facility] Address [address] [place] [address]- Care Team Providers Name Role Phone Not on Staff, PCP Primary Care Physician Unavailable Encounter [facility] Date(s): 03/10/20 - 04/15/20 [facility] [address] [place] [id number] Attending Physician: Phan PEREZ, Larissa Arreola Admitting Physician: Phan PEREZ, Larissa Arreola Referring Physician: Phan PEREZ, Larissa Arreola Allergies, Adverse Reactions, Alerts Substance Reaction Severity [...] '[id number] Note: TD4 Admin Note: unknown exact [id number] Note: unknown exact date Medications aspirin 81 mg oral delayed release tablet 162 mg, 2, tablet, By Mouth, Daily, To begin taking at 12 weeks gestational age - Approx. Apr 14 2020, # 30 tablet, Refills 0, Tot. Refills 0, Maintenance, 03/05/20 14:49:00 EST, Route to Pharmacy Electronically, [facility]/pharmacy #[id number], Partial fill upo... Start Date: 03/05/20 Status: Orderedbedside commode bedside commode, See Instructions, # 1 each, Refills 0, Tot. Refills 0, Maintenance, DX DM E 11.9 using at bedside, 11/14/17 17:17:55 EDT, Compound Start Date: 11/14/17 Status: OrderedDEXCOM G6 ARMAMENT REPAIRER DEXCOM G6 ARMAMENT REPAIRER, See Instructions, # 1 each, Refills 0, Tot. Refills 0, Maintenance, Use to monitor blood lgucose levels [facility]: [id number] E10.9, 04/06/20 12:07:00 EST, Supply, 170, cm, 03/05/20 14:05:00 EST, Height, 82, kg, 03/05/20 14:53:00... Start Date: 04/06/20 Status: OrderedDEXCOM G6 SENSOR, 3 PACK DEXCOM G6 SENSOR, 3 PACK, See Instructions, # 3 each, Refills 3, Tot. Refills 3, Maintenance, Use tomonitor blood sugar. E10.9 [facility] [id number], 04/06/20 12:07:00 EST, Supply, 170, cm, 03/05/20 14:05:00 EST, Height, 82, kg, 03/05/20 14:53:00 EST... Start Date: 04/06/20 Status: OrderedDEXCOM G6 TRANSMITTER DEXCOM G6 TRANSMITTER, See Instructions, # 2 each, Refills 3, Tot. Refills 3, Maintenance, DEXCOM [id number], 04/06/20 12:07:00 EST, Supply, 170, cm, 03/05/20 [...] type 2(Confirmed)1 Active Hypertension(Confirmed) Active Care Coordination [facility], [place] Active Jeanne, CC (Confirmed) delivery(Confirmed) Active delivery(Confirmed) Active 1Not seem at [facility] [place] since 08/12/2016. Multiple no show in our center. She is seen by other provider Dr Matt Gutierrez by pharmacy records. Social History Social History Type Response Smoking Status Never smoker entered on: 03/28/17 Sex
--- OUTSIDE RECORDS SUMMARY | 2022-03-31 18:21 | XMS_ITS | Continuity of Care Document ---
:1990 Author Organization [facility] Address [address] [place] [id number]- Care Team Providers Name Role Phone Not on Staff, PCP Primary Care Physician Unavailable Encounter [facility] Date(s): 03/05/20 - 05/05/[address] [address]- Attending Physician: Not on Staff, Attending MD Referring Physician: Holly Arias MD Allergies, Adverse Reactions, Alerts Substance [...] '[id number] Note: TD4 Admin Note: unknown exact [id number] Note: unknown exact date Medications aspirin 81 mg oral delayed release tablet 162 mg, 2, tablet, By Mouth, Daily, To begin taking at 12 weeks gestational age - Approx. Apr 14 2020, # 30 tablet, Refills 0, Tot. Refills 0, Maintenance, 03/05/20 14:49:00 EST, Route to Pharmacy Electronically, [facility]/pharmacy #[id number], Partial fill upo... Start Date: 03/05/20 Status: Orderedbedside commode bedside commode, See Instructions, # 1 each, Refills 0, Tot. Refills 0, Maintenance, DX DM E 11.9 using at bedside, 11/14/17 17:17:55 EDT, Compound Start Date: 11/14/17 Status: OrderedDEXCOM G6 MULTIFOCAL BUTTON GRINDER DEXCOM G6 MULTIFOCAL BUTTON GRINDER, See Instructions, # 1 each, Refills 0, Tot. Refills 0, Maintenance, Use to monitor blood lgucose levels [facility]: [id number] E10.9, 04/06/20 12:07:00 EST, Supply, 170, cm, 03/05/20 14:05:00 EST, Height, 82, kg, 03/05/20 14:53:00... Start Date: 04/06/20 Status: OrderedDEXCOM G6 SENSOR, 3 PACK DEXCOM G6 SENSOR, 3 PACK, See Instructions, # 3 each, Refills 3, Tot. Refills 3, Maintenance, Use tomonitor blood sugar. E10.9 [facility] [id number], 04/06/20 12:07:00 EST, Supply, 170, cm, 03/05/20 14:05:00 EST, Height, 82, kg, 03/05/20 14:53:00 EST... Start Date: 04/06/20 Status: OrderedDEXCOM G6 TRANSMITTER DEXCOM G6 TRANSMITTER, See Instructions, # 2 each, Refills 3, Tot. Refills 3, Maintenance, DEXCOM [id number], 04/06/20 12:07:00 EST, Supply, 170, cm, 03/05/20 [...] 03/05/20 14:48:00 EST, Route to Pharmacy Electronically, [facility]/pharmacy #[id number], Partial fill upon patient request if the prescription is for a s... Start Date: 03/05/20 Status: OrderedNovoLOG FlexPen 100 units/mL subcutaneous solution See Instructions, Max daily dose 50 units, per sliding scale. E11.65, # 30 mL, 5 Refills, Maintenance, 02/05/20 14:37:00 EST, Solution, [facility]/pharmacy #[id number], Partial fill upon patient request if the prescription is for a schedule II opioid drug., 170, c... Start Date: 02/05/20 Status: OrderedPrenatal Multivitamins with Folic Acid 1 mg oral tablet 1 tablet, By Mouth, Daily, # 90 tablet, 2 Refills, Maintenance, 03/05/20 14:51:00 EST, Tablet, [facility]/pharmacy #[id number], Partial fill upon patient request if the prescription is for a schedule II opioid drug., 1 tablet By Mouth Daily, 170, cm, 01/08/20 13:3... Start Date: 03/05/20 Status: OrderedTrulicity Pen 1.5 mg/0.5 mL subcutaneous solution 0.5 mL = 1.5 mg, Subcutaneous Injection, Every week, Take 1.5mg once weekly. E11.65, # 2.5 mL, 5 Refills, Maintenance, 04/22/20 16:38:00 EST, Solution, [facility]/pharmacy #[id number], Partial fill upon patient request if the prescription is for a schedule II opio... Start Date: 04/22/20 Status: Ordered Problem List Condition Effective Dates Status Health Status Informant Asthma(Confirmed) Active Blindness of right eye(Confirmed) Active Blood group A Rh(D) Active positive(Confirmed) IUFD at 20 weeks or more of Active gestation(Confirmed) Depression(Confirmed) Active Diabetes mellitus type 2(Confirmed)1 Active Hypertension(Confirmed) Active Care Coordination [facility], [place] Active Jeanne, CC (Confirmed) delivery(Confirmed) Active delivery(Confirmed) Active 1Not seem [place] [facility] [place]. Multiple no show in our center. She is seen by other provider Dr Matt Gutierrez by pharmacy records. Social History Social History Type Response Smoking Status Never smoker entered on: 03/28/17 Sex
--- OUTSIDE RECORDS SUMMARY | 2022-03-31 18:21 | XMS_ITS | Continuity of Care Document ---
:1990 Author Organization [facility] Address [address] [place] [address]- Care Team Providers Name Role Phone Chirag CARLSON, Abdon Primary Care Physician Encounter [facility] Date(s): 03/12/22 - 03/16/[address] [address] Discharge Disposition: A-D/C Home Attending Physician: Paxton Walker MD Admitting Physician: Chai CARLSON, Emir Cheng Referring Physician: Not on Staff, Referring MD [...] '[id number] Note: TD4 Admin Note: unknown exact [id number] Note: unknown exact date Medications Aspirin Low Dose 81 mg oral delayed release tablet 2 tablet = 162 mg, By Mouth, Daily, Maintenance, 02/13/22 11:23:00 EST, CR Tablet, ; Start Date: 02/13/22 Status: Orderedcarvedilol 12.5 mg oral tablet 12.5 mg, 1, tablet, By Mouth, 2 times a day, # 60 tablet, Refills 0, Tot. Refills 0, Maintenance, 03/10/22 13:14:00 EST, Route to Pharmacy Electronically, [facility], Partial fill upon patient request if the prescription is for a schedul... Start Date: 03/10/22 Status: Orderedcarvedilol 12.5 mg oral tablet 25 mg, Tablet, By Mouth, 03/16/22 9:00:00 EST Start Date: 03/16/22 Stop Date: 03/16/22 Status: CompletedCrestor 5 mg oral tablet 1 tablet = 5 mg, By Mouth, Daily, # 30 tablet, 0 Refills, Maintenance, 01/19/22 13:30:00 EST, Tablet, [facility]/pharmacy #[id number], Partial fill upon patient request if the prescription is for a schedule II opioid drug., 160, cm, 01/19/22 8:55:00 EST, Height, 9... Start Date: 01/19/22 Status: OrderedDilaudid Inj 1 mg, Injection, IV Push Slowly, Every 6 hours, PRN for Pain , Severe, Routine, 03/15/22 17:27:00 EST Start Date: 03/15/22 Stop Date: 03/17/22 Status: Discontinuedduloxetine 30 mg oral enteric coated capsule 1 capsule = 30 mg, By Mouth, Daily, # 30 capsule, 1 Refills, Maintenance, 02/02/22 15:18:00 EST, Capsule, [facility]/pharmacy #[id number], Partial fill upon patient request if the prescription is for a schedule II opioid drug., 160, cm, 01/19/22 8:55:00 EST, Heigh... Start Date: 02/02/22 Status: OrderedFlonase 50 mcg/inh nasal spray 1 sprays, Nares, Both, 2 times a day, # 16 Gm, 0 Refills, Maintenance, 03/10/22 13:15:00 EST, [place],[facility], Partial fill upon patient request if the prescription is for a schedule IIopioid drug., 1 sprays Nares, Both 2 times a day,... Start Date: 03/10/22 Status: OrderedLevemir FlexTouch 100 units/mL subcutaneous solution = 8 units, Subcutaneous Injection, Daily at bedtime, (NOT TAKING & HASN'T IN MONTHS), # 10 mL, 0Refills, Maintenance, 03/10/22 13:13:00 EST, [facility] fill upon patient request if the prescription is for a schedule... Start Date: 03/10/22 Status: Orderedmetoclopramide 5 mg oral tablet 1 tablet = 5 mg, By Mouth, Every 6 hours, PRN Nausea & Vomiting, for 14 days, # 56 tablet, 0 Refills, Acute 03/24/22 13:15:00 EST, 03/10/22 13:15:00 EST, Tablet, [facility], Partial fill upon patient request if the prescription is for a... Start Date: 03/10/22 Stop Date: 03/24/22 Status: OrderedNIFEdipine 30 mg oral tablet, extended release 30 mg, 1, tablet, By Mouth, Daily, # 30 tablet, Refills 0, Tot. Refills 0, Maintenance, 03/10/22 13:15:00 EST, Route to Pharmacy Electronically, [facility], Partial fill upon patient request if the prescription is for a schedule II opioi... Start Date: 03/10/22 Stop Date: 04/09/22 Status: OrderedNIFEdipine 30 mg oral tablet, extended release 30 mg, ER Tablet, By Mouth, 03/16/22 9:00:00 EST Start Date: 03/16/22 Stop Date: 03/16/22 Status: CompletedNovoLOG FlexPen 100 units/mL injectable solution 11-12 UNITS, Subcutaneous Injection, 3 times a day before meals, (NOT TAKING & HASN'T IN MONTHS), # 10 mL, 0 Refills, Maintenance, 03/10/22 13:12:00 EST, Injection, [facility], Partial fill upon patient request if the prescription is for... Start Date: 03/10/22 Status: Orderedondansetron 4 mg oral tablet 1 tablet = 4 mg, By Mouth, Every 8 hours, PRN Nausea & Vomiting, # 12 tablet, 0 Refills, Maintenance, 03/10/22 13:16:00 EST, Tablet, [facility], Partial fill upon patient request if [...] Dry Weight Start Date: 03/10/22 Status: OrderedPen [place], 31 G x 5 mm BD Ultra [...] 0 Refills, Maintenance, 03/10/22 13:14:00 EST, Tablet, [facility], Partial fill upon patient [...] Migraine5 Confirmed Active Care Coordination Confirmed Active [facility], Hakan Angel, CC 1Managed by PCP. WEll controlled.2Self-manages. States currently stable. No medications.3Not seem at [facility] since 08/12/2016. Multiple no show in our center. She is seen by other provider Dr Matt Gutierrez by pharmacy records.4Managed by [id number] by PCP with Tylenol Results Orders for Microbiology Reports Name Date Blood Culture 03/13/22 Blood Culture #2 03/13/22 Microbiology Reports TEST:Blood Culture, Second Order STATUS:Unauthenticated BODY SITE: SOURCE:Blood COLLECTED DATE/TIME:03/13/22 8:32 AMBlood Culture, Second Order SPECIMEN DESCRIPTION : BLOOD L AC SPECIAL REQUESTS : NONE CULTURE : NO GROWTH 3 DAYS REPORT STATUS : PRELIMINARY REPORT TEST:Blood Culture STATUS:Unauthenticated BODY SITE: SOURCE:Blood COLLECTED DATE/TIME:03/13/22 8:20 AMBlood Culture SPECIMEN DESCRIPTION : BLOOD L HAND SPECIAL REQUESTS : NONE CULTURE : NO GROWTH 3 DAYS REPORT STATUS : PRELIMINARY REPORT Radiology Reports Exam Date Time Procedure Performing Provider Status 03/15/22 6:48 PM MRI Ext Lower W+W/O Contrast Akil Vaz ; Auth (Verified) Left Notes:(MRI Ext Lower W+W/O Contrast Left) Reason For Exam: InfectionRESULT: MRI Ext Lower W+W/O Contrast Left INDICATION: Foot infection. Question osteomyelitis. Suspicion for osteomyelitis of the navicular on prior radiograph. TECHNIQUE: Multiplanar multisequence MRI of the left foot was obtained with and without intravenous contrast material. 17 mL of Clariscan intravenous contrast was administered. COMPARISONS: Radiographs 03/12/2022 FINDINGS: Study is degraded by patient motion artifact. Bone: Patient status post amputation of the first metatarsal. Status post amputation of the fifth digit at the metatarsophalangeal joint. Chronic deformity of the fourth metatarsal phalangeal joint. Chronic Charcot changes in the midfoot. No MRI evidence of osteomyelitis. Soft tissues: No abscess. No tibiotalar joint effusion. Diffuse edema involving the intrinsic muscles of the foot, common finding in diabetic neuropathy. IMPRESSION: No MRI evidence of osteomyelitis. Postoperative changes as well as Charcot changes as described above. WSN: [id number] Ordering Physician: Paxton Walker Dictated By: Lenny Cortez MD Dictated Date/Time: 03/16/22 7:52 am Reviewed By: Lenny Cortez MD Signed By: Lenny Cortez MD Signed Date/Time: 03/16/22 7:52 am Transcribed By: ALEXIS Transcribed Date/Time: 03/16/22 7:43 am Exam Date Time Procedure Performing Provider Status 03/12/22 3:42 PM Foot Min 3 Views Left Shayla Taylor; Auth ( Verified) Notes:(Foot Min 3 Views Left) Reason For Exam: with Pain;PainRESULT: Foot Min 3 Views Left Foot Min 3 Views Left, 3 views Hx of Present Illness: L heel L side pain, SOB; Reason: Pain; with Pain; Clinical Question(s): Fracture; osteomyelitis; Special Instructions: attention to great toe and second toe COMPARISON: None. FINDINGS: Status post amputation of the first ray at the proximal metatarsal and of the fifth ray at the MTP joint. Chronic appearing deformity of the distal fourth metatarsal, may be due to prior injury or resection. Diffuse joint space narrowing and sclerosis throughout the mid foot. Cortical erosion of the medial aspect of the navicular. Soft tissue swelling around the mid foot and the forefoot. IMPRESSION: Findings at the midfoot are suggestive of Charcot arthropathy, but there appears to be erosion at the medial aspect of the navicular. Osteomyelitis is not excluded, and further evaluation with MRI is recommended. WSN: [id number] Ordering Physician: Christy James Dictated By: Mihai Germain MD Dictated Date/Time: 03/12/22 3:49 pm Reviewed By: iMhai Germain MD Signed By: Mihai Germain MD Signed Date/Time: 03/12/22 3:49 pm Transcribed By: ALEXIS Transcribed Date/Time: 03/12/22 3:47 pm Exam Date Time Procedure Performing Provider Status 03/12/22 3:42 PM Chest 2 Views Frontal and Lat Shayla Taylor ; Nicol (Verified) Notes:(Chest 2 Views Frontal and Lat) Reason For Exam: Shortness of Breath RESULT: Chest 2 Views Frontal and Lat Chest 2 Views Frontal and Lat Hx of Present Illness: L heel L side pain, SOB; Reason: Shortness of Breath; Clinical Question(s): CHF / CHF COMPARISON: 02/26/2022 FINDINGS: LINES AND TUBES: None. LUNGS AND PLEURA: Clear lungs. Normal pulmonary vascularity. No pleural effusion. No pneumothorax. HEART, MEDIASTINUM AND EVERT: Mild prominence of the cardiac silhouette. Normal mediastinal and hilar contour. BONES AND SOFT TISSUES: No acute abnormality. IMPRESSION: No evidence of acute abnormality. WSN: [id number] Ordering Physician: Christy James Dictated By: Mihai Germain MD Dictated Date/Time: 03/12/22 3:45 pm Reviewed By: Mihai Germain MD Signed By: Mihai Germain MD Signed Date/Time: 03/12/22 3:45 pm Transcribed By: ALEXIS Transcribed Date/Time: 03/12/22 3:44 pm Vital Signs Most recent to oldest 1 2 3 [Reference Range]: Height 168 cm 168 cm 168 cm (03/16/22 5:56 AM) (03/15/22 11:12 PM) (03/15/22 8: 04 PM) Weight 88.6 kg 88.6 kg (03/14/22 10:37 AM) (03/14/22 10:18 AM) Oxygen Saturation [94-100 %] 98 % 92 % 97 % (03/16/22 5:56 AM) *L* (03/15/22 8:04 PM) (03/15/22 11:12 PM) Pulse Rate [55-90 bpm] 81 bpm 81 bpm 82 bpm (03/16/22 9:38 AM) (03/16/22 5:56 AM) (03/15/22 11: 12 PM) Body Mass Index [18.5-24.99 31.39 kg/m2 kg/m2] *>HHI* (03/14/22 10:18 AM) Blood Pressure [90-138/55-84 135/75 mm Hg 135/75 mm Hg 135 /75 mm Hg mm Hg] (03/16/22 9:38 AM) (03/16/22 9:38 AM) (03/16/22 5:5 6 AM) Respiratory Rate [16-30 18 br/min 18 br/min 18 br/mi n br/min] (03/16/22 7:52 AM) (03/16/22 5:56 AM) (03/16/22 1:4 4 AM) Temperature [96.8-100.4 97.3 DegF 97.8 DegF 97.7 Deg F DegF] (03/16/22 5:56 AM) (03/15/22 11:12 PM) (03/15/22 8: 04 PM) Mode of Delivery (Oxygen) Room air Room air Room a ir (03/16/22 5:56 AM) (03/15/22 11:12 PM) (03/15/22 8: 04 PM) Blood pressure sites Arm, right Arm, left Arm, right (03/16/22 5:56 AM) (03/15/22 11:12 PM) (03/15/22 8: 04 PM) Temperature Route Oral Oral Oral (03/16/22 5:56 AM) (03/15/22 11:12 PM) (03/15/22 8: 04 PM) Dry Weight 88.6 kg (03/14/22 10:18 AM) Weight Obtained Via Bed scale (03/14/22 10:18 AM) Dry Weight Obtained Via Bed scale (03/14/22 10:18 AM) Social History Social History Type Response Smoking Status Never (less than 100 in life time) entered on: 08/22/21 Sex Admission evaluation note Jonas CARLSON, Maureen Tony: MODIFY, MODIFY, MODIFY, PERFORM Event Display: Admission Note Authored Date: [id number] Patient: ??ROWAN TAYLOR ? Age:??31 Years?Sex:??Female?:??1990?? Chief Complaint/Reason for Consultation Left heel pain, left body pain History of Present Illness ??31-year-old female with PMH of HTN, type 2 diabetes on insulin complicated by diabetic neuropathy, CKD, nonischemic cardiomyopathy HFrEF 40 to 45%, legally blind came to the ED with complaints of left toe pain associated with foul- smelling odor and left lateral chest pain. ?? Patient's?? medical chart reviewed, seen and examined at bedside.?? Patient very lethargic and drowsy per the time of my exam and not able to obtain much history from her.?? Yesterday patient woke up with a left-sided toe pain with some foul order.?? Patient also complains of left posterior chest wall pain associated with some shortness of breath.?? Patient has recurrent admission and recently discharged 2 days ago on 03/10/2022 due to pulmonary edema and pleural effusion so she was concerned that she might have accumulating fluid again.?? Denies any fevers, chills, cough, sore throat, runny nose, nausea, vomiting, abdominal pain, constipation, dysuria, hematuria.?? Endorses compliance with medications. ?? Initially in the ED patient remains afebrile, HR 93, RR 18, BP 179/97, saturation 95% on room air.?? No leukocytosis WBC 4.4, Hgb 7.7, PLT 243, electrolytes normal, BUN/creatinine 25/3, blood glucose 92, calcium 8.2, elevated CRP 5.6, proBNP 39,706, high-sensitivity troponin 134?129?102,EKG with normal sinus rhythm, RBBB, no significant ST/T changes.?? Chest x-ray no acute findings, nopleural effusion.?? X-ray of the left foot with findings of the midfoot suggestive of charcot arthropathy also found to have erosion at the medial aspect of the navicular bone, osteomyelitis cannot be excluded and further evaluation with MRI is recommended.?? Patient allergic to vancomycin, Zosyn which caused angioedema.?? Patient will be admitted to inpatient medicine service for further management. Review of Systems All the systems are reviewed and are negative, except as above Objective ? Vital Signs?? Temperature: 99 DegF (03/13/22 03:00:00) Temperature Route: Oral (03/13/22 03:00:00) Pulse Rate:??101 bpm??High (03/13/22 03:00:00) Respiratory Rate: 16 br/min (03/13/22 03:00:00) Systolic Blood Pressure:??179 mm Hg??High (03/13/22 03:00:00) Diastolic Blood Pressure:??93 mm Hg??High (03/13/22 03:00:00) Blood pressure sites: Arm, right (03/13/22 03:00:00) Mean Arterial Pressure: 120 mm Hg (03/12/22 12:30:00) Pulse Pressure: 55 mm Hg (03/12/22 12:30:00) Oxygen Saturation: 95 % (03/13/22 03:00:00) Mode of Delivery (Oxygen): Room air (03/13/22 03:00:00) Early Warning Score: 3 (03/13/22 03:50:20) ? Pain Scores 1 - 10 Pain Scale Score: 7 (23:30) ? Intake/Output? 03/12 16:55 03/12 07:00 03/11 07:00 03/10 07:00 ?? 03/13 03:57 03/13 03:57 03/12 06:59 03/11 06:59 Urine Count ?1 ?1 ?0 ?0 ? Precautions No Precautions documented.? Physical Exam ?? Gen- not in acute distress,?? speaking while sleeping without opening eyes overnight. HEENT- Normocephalic, Atraumatic,?? No pallor, icterus Neck-supple, no JVD Heart-S1S2(+),??regular, no murmurs Lungs: clear, no wheezing Abdomen-soft, nontender,nondistended,??bowel sounds present in 4q Extremities-pulses palpable??2+. No pedal edema. No calf tenderness. Neurological-?? No focal neurological deficits noted. Psychiatric-patient???s mood is stable. ? (03/12/2022 15:42 EST Chest 2 Views Frontal and Lat) MPRESSION: ?? No evidence of acute abnormality. ? (03/12/2022 15:42 EST Foot Min 3 Views Left) IMPRESSION:? Findings at the midfoot are suggestive of Charcot arthropathy, but there appears to be erosion at the medial aspect of the navicular. Osteomyelitis is not excluded, and further evaluation with MRI is recommended.?? Assessment/Plan ??31-year-old female with PMH of HTN, type 2 diabetes on insulin complicated by diabetic neuropathy,CKD, nonischemic cardiomyopathy HFrEF 40 to 45%,??mild??mitral/tricuspid regurgitation, ASD, asthma,depression legally blind came to the ED with complaints of left toe pain associated with foul-smelling odor and left lateral chest pain.Initially in the ED patient remains afebrile, HR 93, RR 18, BP 179/97, saturation 95% on room air.?? No leukocytosis WBC 4.4, Hgb 7.7, PLT 243, electrolytes normal, BUN/creatinine 25/3, blood glucose 92, calcium 8.2, elevated CRP 5.6, proBNP 39,706, high-sensitivity troponin 134?129?102, EKG with normal sinus rhythm, RBBB, no significant ST/T changes.?? Chest x-ray no acute findings, no pleural effusion.?? X-ray of the left foot with findings of the midfoot suggestive of charcot arthropathy also found to have erosion at the medial aspect of the navicularbone, osteomyelitis cannot be excluded and further evaluation with MRI is recommended.?? Patient allergic to vancomycin, Zosyn which caused angioedema.?? Patient will be admitted to inpatient medicine service for further management. ?? Left foot infection -???osteomyelitis Vitals as per unit standards Patient allergic to vancomycin and Zosyn Might need??linezolid??or daptomycin ID consult order placed MRI??of the left foot -please order in the a.m.??after speaking to radiologist might need contrast??patient??with CKD??with a creatinine of 3 Follow with ESR Follow-up with??blood cultures and repeat labs in a.m. Daily trend fever and WBC curve ?? Left lateral chest wall pain Likely musculoskeletal, pain control Chest x-ray negative for any pleural effusion S/p Lasix??20 mg IV in ED ?? CAD/HTN???aspirin 81 mg daily,??Coreg 12.5mg daily, nifedipine 30 mg daily Type 2 diabetes mellitus -lispro sliding scale,??insulin detemir??5 units??nightly??at home takes 8units, metoclopramide, scopolamine??and Zofran??for gastroparesis HLD???rosuvastatin 5 mg daily Recurrent pleural effusions???torsemide 20 mg daily, s/p Lasix??20 mg IV Anxiety/depression???duloxetine 30 mg daily GERD???pantoprazole 40 mg daily ?? code -full, confirmed with pt at bedside diet -??diabetic dvtpx - subq heparin ?? Pt seen and examined on 03/13/2022 ?? Histories Allergies Allergies ?(Active and Proposed Allergies [...] Cardiac disease during , antepartum Care Coordination [facility], Hakan Angel, CC CKD (chronic kidney disease), stage III CKD stage 4 due to type 2 diabetes mellitus Depression Diabetes mellitus type 2 growth retardation, H/O Chest pain Heart failure with preserved ejection fraction, NYHA class I Hypertension Insulin dependent type 2 diabetes mellitus IUFD at 20 weeks or more of gestation Migraine ? Past Surgical History delivery only;: 12/09/21 : 2009 D&C: 2008 Amputation left great toe Amputation left pinky toe Amputation of all right toes Repeat 2012 Cholecystectomy Amputation of right great toe Diabetic foot ulcer ? Social History Alcohol Details:??Use: Never. Employment/School Details:??Status: Disabled. Exercise Details:??Self assessment: Fair condition. ??Regular exercise: No. Details:??Self assessment: Good condition. Home/Environment Details:??Living situation: Home with assistance. ??Lives [...] lifetime). Electronic Cigarette/Vaping Details:??Electronic Cigarette Use: Never. ? Family History Mother (): CAD - Coronary artery disease; Diabetes mellitus type II; Hyperlipidemia; Hypertension; Myocardial infarction; Stroke Father: Asthma; Diabetes mellitus; Hyperlipidemia; Myocardial infarction Sister: Diabetes mellitus Brother: Diabetes mellitus ? Medications Home Medications Aspirin (Aspirin Low Dose 81 mg oral delayed release tablet)?2?tab(s)?162?Milligram?By Mouth?Daily Carvedilol (carvedilol 12.5 mg oral tablet)?12.5?Milligram?1?tablet?By Mouth?2 times a day Duloxetine (duloxetine 30 mg oral enteric coated capsule)?1?capsule?30?Milligram?By Mouth?Daily Durable Medical Equipment (Pen [place], 31 G x 5 mm BD Ultra [...] at bedtime?(NOT TAKING & HASN'T IN MONTHS) Metoclopramide (metoclopramide 5 mg oral tablet)?1?tab(s)?5?Milligram?By Mouth?Every 6 hours?as needed?Nausea & Vomiting?for 14?Days NIFEdipine (NIFEdipine 30 mg oral tablet, extended release)?30?Milligram?1?tablet?ByMouth?Daily?for 30?Days Ondansetron (ondansetron 4 mg oral tablet)?1?tab(s)?4?Milligram?By Mouth?Every 8 hours?as needed?Nausea & Vomiting Oxycodone (oxyCODONE 5 mg oral tablet)?5?Milligram?1?tablet?By Mouth?Every 6 hours?as needed?for 3?Days?as needed for pain Pantoprazole (pantoprazole 40 mg oral delayed release tablet)?1?tab(s)?40?Milligram?By Mouth?Daily Rosuvastatin (Crestor 5 mg oral tablet)?1?tab(s)?5?Milligram?By Mouth?Daily Scopolamine (scopolamine 1 mg/72 hr transdermal film, extended release)?1?Film?Topically?Every 72 hours torsemide (torsemide 20 mg oral tablet)?1?tab(s)?20?Milligram?By Mouth?Daily ? Inpatient Medications Medications (24) Active SCHEDULED: (14) Aspirin 81 mg EC Tablet (aspirin 81 mg oral delayed release tablet) ??81 mg, By Mouth, Daily Carvedilol 12.5 mg Tablet (carvedilol 12.5 mg oral tablet) ??12.5 mg, By Mouth, 2 times a day Duloxetine 30 mg Capsule (DULoxetine Capsule) ??30 mg, By Mouth, Daily Fluticasone Propionate 50mcg/inh Nasal [place] (Flonase 50 mcg/inh nasal spray) ??50 mcg 1 sprays, Nares, Both, 2 times a day Heparin 5000 units/mL Inj (1 mL) (Heparin Inj) ??5,000 units 1 mL, Subcutaneous Injection, 3 times a day Insulin Detemir 100 units/mL Inj (Insulin Detemir Inj) ??5 units 0.05 mL, Subcutaneous Injection, Daily at bedtime Insulin Lispro 100 units/mL Inj (3mL) (Insulin LISPRO Sliding Scale) ??2-10 units, Subcutaneous Injection, 3 times a day before meals NaCl 0.9% Flush 3ml (NaCL 0.9% Flush) ??3 mL, IV Push, Every 8 hours NIFEdipine 30 mg ER Tablet (NIFEdipine 30 mg oral tablet, extended release) ??30 mg, By Mouth, Daily Pantoprazole 40 mg EC Tablet (pantoprazole 40 mg oral delayed release tablet) ??40 mg, By Mouth, Daily Remove Patch (Remove ??Patch) ??1 each, Topically, Every 72 hours Rosuvastatin 5 mg Tablet (Crestor 5 mg oral tablet) ??5 mg, By Mouth, Daily Scopolamine 1 mg Patch ??1 mg 1 each, Topically, Every 72 hours Torsemide 20 mg tablet (torsemide 20 mg oral tablet) ??20 mg 1 tablet, By Mouth, Daily CONTINUOUS: (0) PRN: (10) Acetaminophen 325 mg Tablet (Acetaminophen Tablet) ??650 mg, By Mouth, Every 4 hours Dextromethorphan-Guaifenesin 20 mg-200 mg/10 mL Liqu UD (Robitussin DM Liquid) ??10 mL, By Mouth, Every 4 hours HYDROmorphone 0.5 mg/0.5 mL Inj Syringe (Dilaudid Inj) ??0.5 mg 0.5 mL, IV Push Slowly, Every 4 hours Melatonin 3 mg Tablet (Melatonin Tablet) ??3 mg, By Mouth, Daily at bedtime NaCl 0.9% Flush 3ml (NaCL 0.9% Flush) ??3 mL, IV Push, Every 8 hours Ondansetron 4 mg ODT (ondansetron 4 mg oral tablet, disintegrating) ??4 mg, By Mouth, Every 6 hours OxyCODONE 5 mg IR Tablet (oxyCODONE 5 mg oral tablet) ??5 mg, By Mouth, Every 6 hours Polyethylene Glycol 17 Gm Powder (MiraLax Powder) ??17 Gm 1 pack/packet, By Mouth, Daily Senna 8.6 mg / Docusate 50 mg tablet (Docusate/Senna Tablet) ??1 tablet, By Mouth, 2 times a day Simethicone 80 mg Chewable Tablet (Simethicone Tablet) ??80 mg, Chew, 3 times a day ? Results Recent Labs BLOOD COUNT & DIFF WBC 4.4 k/mm3 ()?? 03/12/2022 16:55 RBC 2.78 m/mm3 (Low)?? 03/12/2022 16:55 Hgb 7.7 Gm/dL (Low)?? 03/12/2022 16:55 Hct 23.5 % (Low)?? 03/12/2022 16:55 MCV 84.5 femtoliters ()?? 03/12/2022 16:55 MCH 27.7 pg ()?? 03/12/2022 16:55 MCHC 32.8 g/dL (Low)?? 03/12/2022 16:55 Platelet Count 223 k/mm3 ()?? 03/12/2022 16:55 RDW-SD 47.1 femtoliters (High)?? 03/12/2022 16:55 MPV 11.9 femtoliters ()?? 03/12/2022 16:55 Nucleated RBC (Automated) 0.0 #/100 WBC'S ()?? 03/12/2022 16:55 Abs. NRBC 0.0 k/mm3 ()?? 03/12/2022 16:55 Abs. Neut 2.7 k/mm3 ()?? 03/12/2022 16:55 Abs. Lymph 0.8 k/mm3 ()?? 03/12/2022 16:55 Abs. [place] 0.7 k/mm3 ()?? 03/12/2022 16:55 Abs. Eo 0.2 k/mm3 ()?? 03/12/2022 16:55 Abs. Baso 0.0 k/mm3 ()?? 03/12/2022 16:55 Neut % 61.4 % ()?? 03/12/2022 16:55 Lymph % 18.6 % ()?? 03/12/2022 16:55 [place] % 15.4 % (High)?? 03/12/2022 16:55 Eos % 3.9 % ()?? 03/12/2022 16:55 Baso % 0.2 % ()?? 03/12/2022 16:55 Imm Gran 0.5 % ()?? 03/12/2022 16:55 Abs. Imm Gran 0.0 k/mm3 ()?? 03/12/2022 16:55 ?? CARDIAC Nt-Probnp 37652 pg/mL (High)?? 03/12/2022 12:59 High Sensitivity Troponin (HSTnT) 102 ng/L (Critical)?? 03/12/2022 12:59 ?? CHEM GENERAL Sodium 138 mmol/L ()?? 03/12/2022 16:55 Potassium 4.1 mmol/L ()?? 03/12/2022 16:55 Chloride 107 mmol/L ()?? 03/12/2022 16:55 Bicarbonate Level 22 mmol/L ()?? 03/12/2022 16:55 Anion Gap 9 ()?? 03/12/2022 16:55 Glucose Level 120 mg/dL (High)?? 03/12/2022 16:55 Glucose, POC 92 mg/dL ()?? 03/12/2022 21:12 BUN 25 mg/dL (High)?? 03/12/2022 16:55 Creatinine-Blood 3.0 mg/dL (High)?? 03/12/2022 16:55 Estimated GFR Creatinine 20 ML/MIN/1.73 M2 ()?? 03/12/2022 16:55 Calcium 8.2 mg/dL (Low)?? 03/12/2022 16:55 C-Reactive Protein 5.6 mg/dL (High)?? 03/12/2022 12:59 ?? VIROLOGY Influenza A PCR NEGATIVE ()?? 03/12/2022 12:48 Influenza B PCR NEGATIVE ()?? 03/12/2022 12:48 RSV PCR NEGATIVE ()?? 03/12/2022 12:48 COVID-19 PCR Specimen Source NASAL ()?? 03/12/2022 12:48 COVID-19 PCR Result NEGATIVE ()?? 03/12/2022 12:48 ? Urinalysis?? No qualifying data available. ?? Microbiology ?? COVID-19, RSV, and Flu A/B, Rapid PCR?? Completed?? Source: Nasal Body Site: Nose Collected Dt/Tm: 03/12/2022 12:48 Last Updated Dt/Tm: 03/12/2022 15:32 ? Cardiology Labs Nt-Probnp:??84599 pg/mL??High (03/12/22 12:59:00) High Sensitivity Troponin (HSTnT):??102 ng/L??Critical (03/12/22 12:59:00) ? EKG study Event Display: ECG 12-Lead Authored Date: Please click on pdf link to open report Event Display: ECG 12-Lead Authored Date: Ventricular Rate: 91 BPM Atrial Rate: 91 BPM P-R Interval: 162 ms QRS Duration: 138 ms Q-T Interval: 422 ms QTC Calculation(Bazett): 519 ms P [place]: 46 degrees R [place]: 2 degrees T [place]: 61 degrees Poor data quality, interpretation may be adversely affected Normal sinus rhythm Possible Left atrial enlargement Right bundle branch block When compared with ECG of 09-MAR-2022 21:36, No significant change was found Confirmed by MAXWELL LÓPEZ ([id number]) on 03/12/2022 9:22:37 PM [place]: MAXWELL LÓPEZ [facility] Progress note Shelly Silverman RN: PERFORM, SIGN, VERIFY, SIGN, MODIFY Event Display: [facility] Authored Date: Patient: ROWAN TAYLOR Age: 31 years Sex: Female : 1990 Associated Diagnoses: None Author: Shelly Silverman RN Remains on enhanced respiratory precautions. Alert and oriented x4. Complained of left foot and sidepain medicated with PRN Dilaudid. Complained of nausea given Zofran per orders. Lungs clear diminished in the bases. Denies cough or SOB. +BS. Vitals stable, afebrile. Bed in lowest position, wheels locked. Hourly rounding maintained. Discharge Information Case Management Discharge Plan : Case Management Discharge Plan Data 03/10/2022 17:21 EST Discharge Level of Care at Discharge Home/Care Home/Foster Care Discharge Medical Equipment Companies [facility] Shelly Silverman RN: PERFORM Event Display: Progress [facility] Authored Date: Discharge paperwork completed. Patient discharged left unit via WC with all belongings.Kylah BETH, Nirali Huff: MODIFY, SIGN, VERIFY, PERFORM Event Display: Progress Note Hospital Authored Date: Patient: ROWAN TAYLOR Age: 31 years Sex: Female : 1990 Associated Diagnoses: None Author: Kylah BETH, Nirali Huff Findings Problem Related to Alteration in Comfort : Alteration in Comfort/new 03/15/2022 19:00 EST Alteration in Comfort Related to Disease process Goals & Outcomes: Comfort Pt will report acceptable level of comfort & pain control, Pt will state importance of adhering to pain strategy regime, Pt will demonstrate necessary skills to manage pain, Non-verbal indicators will indicate comfort/pain control Interventions Implemented: Comfort Assess pain using appropriate pain scale/tools, Assess aggravating factors & prevent them accordingly BH Goals/Interventions, Comfort Yes Comfort, Problem Start 03/15/2022 19:00 Reviewed plan with, Comfort Patient Patient Progression, Comfort Plan Initiation Comfort, Problem Ongoing Yes . Alteration in Integumentary : Alteration in Integumentary/new 03/15/2022 19:00 EST Alteration in Integumentary Related to Other: osteomylitis r/o Goals & Outcomes, Integumentary Pt will maintain adequate fluid & nutritional balance Interventions, Integumentary Cleanse all wounds with Normal Saline, Collaborate w/ provider for PT/OT consults, Consult Wound Care as needed for further interventions, Encourage & assist pt to change position frequently, Encourage & assist with range of motion exercises, Encourage family participation in pt's care as they are able, Ensure relief modes are on mattress surface & utilized, I ncrease turning frequency if red or blanched areas appear, Interdisciplinary consults as appropriate, Keep bed as flat as tolerated to reduce shearing, Keep linen clean, dry and wrinkle free, Keep skinclean & dry, Maintain sterile technique with dressing changes, Minimize friction, shear and moisture, Monitor reddened areas for continued or increasing reddness, Record extent of impaired skin integrity, Relieve pressure off bony areas, Reposition pt off reddened areas, Teach Pt/caregiver s/s of infection, Teach Pt/S.O. risks of & measures to prevent skin breakdown, Use barrier cream/ointment if pt's skin is frequently moist, Use fecal incontinence appliance if pt incontinent of stool, Use heel & elbow protectors to relieve friction, Use pH balanced no rinse cleanser if incontinent, Use pressure dispersing devices as appropriate Goals/Interventions, Integumentary Yes Integumentary, Problem Start 03/15/2022 4:36 Reviewed plan with, Integumentary Patient Patient Progression, Integumentary Pt progressing according to plan . Evaluation Received patient from MRI, transferred to bed safely. complaining of nauseated and 8/10 pain. DeniesSOB. Physical assessment documented. Medicated per MAR with good effect. needs attended. keep bed low and locked. Call moore within reached. complained of constipation, offered miralax pat refused. hourly rounding maintained. . Discharge Information Case Management Discharge Plan : Case Management Discharge Plan Data 03/10/2022 17:21 EST Discharge Level of Care at Discharge Home/Care Home/Foster Care Discharge Medical Equipment [employer] Denise CARLSON, Paxton: PERFORM, MODIFY, MODIFY, MODIFY Event Display: Progress Note Hospital Authored Date: [id number] Patient: ??ROWAN TAYLOR ? Age:??31 Years?Sex:??Female?:??1990?? Subjective Patient complaining of some nausea overnight Patient continued adamantly stable, afebrile and saturating well on room air. ?? Review of Systems General: States she has not slept well because of??nausea??and vomiting. Cardiovascular: Denies any chest pain or palpitations. Pulmonary: Denies any shortness of breath or cough. GI: As above. : Denies any urinary retention ?? Social History Alcohol Details:??Use: Never. Employment/School Details:??Status: Disabled. Exercise Details:??Self assessment: Fair condition. ??Regular exercise: No. Details:??Self assessment: Good condition. Home/Environment Details:??Living situation: Home with assistance. ??Lives with: Spouse. ??DCF involvement: Past. ??Other: Case closed now. Children live with their father. Patient has them on vacations. ??Feels unsafeat home: No. Nutrition/Health Details:??Diet: Diabetic. Sexual Details:??Sexually involved in last 6 months: Yes. ??Gender identity: Identifies as female. ??Preferred pronoun: She/her. Details:??Sexually involved in last 6 months: Yes. ??Gender identity: Identifies as female. Substance Abuse Details:??Use: Never. Tobacco Details:??Use: Never (less than 100 in lifetime). Electronic Cigarette/Vaping Details:??Electronic Cigarette Use: Never. ? Family History Mother (): CAD - Coronary artery disease; Diabetes mellitus type II; Hyperlipidemia; Hypertension; Myocardial infarction; Stroke Father: Asthma; Diabetes mellitus; Hyperlipidemia; Myocardial infarction Sister: Diabetes mellitus Brother: Diabetes mellitus ? Objective Vital Signs?? Temperature: 98.3 DegF (03/15/22 14:54:00) Temperature Route: Oral (03/15/22 14:54:00) Pulse Rate:??91 bpm??High (03/15/22 14:54:00) Respiratory Rate: 20 br/min (03/15/22 14:54:00) Systolic Blood Pressure:??167 mm Hg??High (03/15/22 14:54:00) Diastolic Blood Pressure:??92 mm Hg??High (03/15/22 14:54:00) Blood pressure sites: Arm, right (03/15/22 14:54:00) Mean Arterial Pressure: 117 mm Hg (03/15/22 14:54:00) Pulse Pressure: 75 mm Hg (03/15/22 14:54:00) Oxygen Saturation: 95 % (03/15/22 14:54:00) Mode of Delivery (Oxygen): Room air (03/15/22 14:54:00) Early Warning Score: 2 (03/15/22 14:55:20) ? Physical Exam Constitutional: Alert, in no acute distress Respiratory: Clear to auscultation. No wheezing or crackles. No use of accessory muscles. Cardiovascular: S1S2 regular. No murmurs, rubs or gallops. Gastrointestinal: Abdomen soft, non-tender, non-distended. Extremities: R foot toes amputation, L foot 4th/5th transmetatarsal amputation, no erythema, significant tenderness or open wound Neurologic: AAOx3, Speech normal. No focal neurological deficits _ Home Medications Aspirin (Aspirin Low Dose 81 mg oral delayed release tablet)?2?tab(s)?162?Milligram?By Mouth?Daily Carvedilol (carvedilol 12.5 mg oral tablet)?12.5?Milligram?1?tablet?By Mouth?2 times a day Duloxetine (duloxetine 30 mg oral enteric coated capsule)?1?capsule?30?Milligram?By Mouth?Daily Durable Medical Equipment (Pen [place], 31 G x 5 mm BD Ultra [...] at bedtime?(NOT TAKING & HASN'T IN MONTHS) Metoclopramide (metoclopramide 5 mg oral tablet)?1?tab(s)?5?Milligram?By Mouth?Every 6 hours?as needed?Nausea & Vomiting?for 14?Days NIFEdipine (NIFEdipine 30 mg oral tablet, extended release)?30?Milligram?1?tablet?By Mouth?Daily?for 30?Days Ondansetron (ondansetron 4 mg oral tablet)?1?tab(s)?4?Milligram?By Mouth?Every 8 hours?as needed?Nausea & Vomiting Pantoprazole (pantoprazole 40 mg oral delayed release tablet)?1?tab(s)?40?Milligram?By Mouth?Daily Rosuvastatin (Crestor 5 mg oral tablet)?1?tab(s)?5?Milligram?By Mouth?Daily Scopolamine (scopolamine 1 mg/72 hr transdermal film, extended release)?1?Film?Topically?Every 72 hours torsemide (torsemide 20 mg oral tablet)?1?tab(s)?20?Milligram?By Mouth?Daily ? Inpatient Medications Medications (23) Active SCHEDULED: (14) Aspirin 81 mg EC Tablet (aspirin 81 mg oral delayed release tablet) ??81 mg, By Mouth, Daily Carvedilol 25 mg Tablet (carvedilol 12.5 mg oral tablet) ??25 mg, By Mouth, 2 times a day Duloxetine 30 mg Capsule (DULoxetine Capsule) ??30 mg, By Mouth, Daily Fluticasone Propionate 50mcg/inh Nasal [place] (Flonase 50 mcg/inh nasal spray) ??50 mcg 1 sprays, Nares, Both, 2 times a day Heparin 5000 units/mL Inj (1 mL) (Heparin Inj) ??5,000 units 1 mL, Subcutaneous Injection, 3 times aday Insulin Detemir 100 units/mL Inj (Insulin Detemir Inj) ??5 units 0.05 mL, Subcutaneous Injection, Daily at bedtime Insulin Lispro 100 units/mL Inj (3mL) (Insulin LISPRO Sliding Scale) ??2-10 units, Subcutaneous Injection, 3 times a day before meals NaCl 0.9% Flush 3ml (NaCL 0.9% Flush) ??3 mL, IV Push, Every 8 hours NIFEdipine 30 mg ER Tablet (NIFEdipine 30 mg oral tablet, extended release) ??30 mg, By Mouth, Daily Pantoprazole 40 mg EC Tablet (pantoprazole 40 mg oral delayed release tablet) ??40 mg, By Mouth, Daily Remove Patch (Remove ??Patch) ??1 each, Topically, Every 72 hours Rosuvastatin 5 mg Tablet (Crestor 5 mg oral tablet) ??5 mg, By Mouth, Daily Scopolamine 1 mg Patch ??1 mg 1 each, Topically, Every 72 hours Torsemide 20 mg tablet (torsemide 20 mg oral tablet) ??20 mg 1 tablet, By Mouth, Daily CONTINUOUS: (0) PRN: (9) Acetaminophen 325 mg Tablet (Acetaminophen Tablet) ??650 mg, By Mouth, Every 4 hours Dextromethorphan-Guaifenesin 20 mg-200 mg/10 mL Liqu UD (Robitussin DM Liquid) ??10 mL, By Mouth, Every 4 hours HYDROmorphone 2 mg Tablet (Dilaudid 2 mg oral tablet) ??2 mg, By Mouth, Every 4 hours Melatonin 3 mg Tablet (Melatonin Tablet) ??3 mg, By Mouth, Daily at bedtime NaCl 0.9% Flush 3ml (NaCL 0.9% Flush) ??3 mL, IV Push, Every 8 hours Ondansetron 4 mg ODT (ondansetron 4 mg oral tablet, disintegrating) ??4 mg, By Mouth, Every 6 hours Polyethylene Glycol 17 Gm Powder (MiraLax Powder) ??17 Gm 1 pack/packet, By Mouth, Daily Senna 8.6 mg / Docusate 50 mg tablet (Docusate/Senna Tablet) ??1 tablet, By Mouth, 2 times a day Simethicone 80 mg Chewable Tablet (Simethicone Tablet) ??80 mg, Chew, 3 times a day ? Results Recent Labs BLOOD COUNT & DIFF WBC 5.9 k/mm3 ()?? 03/15/2022 08:44 RBC 3.26 m/mm3 (Low)?? 03/15/2022 08:44 Hgb 8.9 Gm/dL (Low)?? 03/15/2022 08:44 Hct 27.5 % (Low)?? 03/15/2022 08:44 MCV 84.4 femtoliters ()?? 03/15/2022 08:44 MCH 27.3 pg ()?? 03/15/2022 08:44 MCHC 32.4 g/dL (Low)?? 03/15/2022 08:44 Platelet Count 264 k/mm3 ()?? 03/15/2022 08:44 RDW-SD 46.2 femtoliters ()?? 03/15/2022 08:44 MPV 10.8 femtoliters ()?? 03/15/2022 08:44 Nucleated RBC (Automated) 0.0 #/100 WBC'S ()?? 03/15/2022 08:44 Abs. NRBC 0.0 k/mm3 ()?? 03/15/2022 08:44 ?? CHEM GENERAL Sodium 138 mmol/L ()?? 03/15/2022 08:44 Potassium 4.1 mmol/L ()?? 03/15/2022 08:44 Chloride 106 mmol/L ()?? 03/15/2022 08:44 Bicarbonate Level 22 mmol/L ()?? 03/15/2022 08:44 Anion Gap 10 ()?? 03/15/2022 08:44 Glucose Level 133 mg/dL (High)?? 03/15/2022 08:44 Glucose, POC 133 mg/dL (High)?? 03/15/2022 11:33 BUN 23 mg/dL (High)?? 03/15/2022 08:44 Creatinine-Blood 2.7 mg/dL (High)?? 03/15/2022 08:44 Estimated GFR Creatinine 23 ML/MIN/1.73 M2 ()?? 03/15/2022 08:44 Calcium 8.2 mg/dL (Low)?? 03/15/2022 08:44 ? 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 ? #Left foot pain: #Concern for osteomyelitis: X-ray: midfoot suggestive of charcot arthropathy also found to have erosion at the medial aspect of the navicular bone, osteomyelitis cannot be excluded and further evaluation with MRI is recommended. As per patient, increased pain/odor of the left foot. -MRI pending to rule out osteomyelitis -Holding antibiotics given lack of fever/leukocytosis. -Follow-up blood cultures -Appreciate ID recommendations (Patient allergic to vancomycin and Zosyn) ? #CKD: Repeat labs in a.m. Avoid nephrotoxic agents ? #Exposure to COVID: Exposure to COVID on 03/14 Patient??to be PUI for next 7 days??up to 03/22 as long as she has negative test on day 1, day 3 and day 5. ? #Chronic stable medical conditions: -CAD/HTN???aspirin 81 mg daily, Coreg 12.5mg daily, nifedipine 30 mg daily -Type 2 diabetes mellitus -lispro sliding scale, insulin detemir 5 units nightly at home takes 8 units,?? -metoclopramide, scopolamine and Zofran for gastroparesis -HLD???rosuvastatin 5 mg daily -Recurrent pleural effusions???torsemide 20 mg daily, s/p Lasix 20 mg IV??int he ED- no active symptoms -Anxiety/depression???duloxetine 30 mg daily -GERD???pantoprazole 40 mg daily ? #Diet: Diabetic #DVT prophylaxis: Heparin #CODE STATUS: Full code #Discharge: Pending MRI/work-up for osteomyelitis.?? Likely discharge in the next 24 hours once decision about??antibiotics has been taken. ? Note Shelly Silverman RN: PERFORM Event Display: Discharge/Transfer Note Hospital Authored Date: [id number] Nursing Discharge Note Entered On: 03/16/2022 15:03 EST Performed On: 03/16/2022 15:03 EST by Shelly Silverman RN Nursing Discharge Note 2 Discharge Time : 03/16/2022 15:03 EST Discharge Level of Care at Discharge : Home/Care Home/Foster Care Patient Left Unit Via : Wheelchair Patient Accompanied Off Unit with : Responsible adult DC Instructions Provided & Signed by Pt : Yes Patient Understands D/C Instructions : Yes Patient Instructions Discharge Signed : Yes Did Pt have Specialty Bed or Wound Vac : No Shelly Silverman RN - 03/16/2022 15:03 Paxton Roth MD: PERFORM, MODIFY Event Display: Discharge/Transfer Note Hospital Authored Date: [id number] Patient: ??ROWAN TAYLOR ? Age:??31 Years?Sex:??Female?:??1990?? Patient Information Discharge Location: S1 Primary Care Physician: Abdon Beard MD Admit Date/Time: 03/12/22 16:55 Discharge Disposition Discharge Disposition: Home: No Services Discharge Diagnosis Diabetes mellitus type 2, insulin dependent (E11.9) History of amputation of left great toe (Z89.412) History of amputation of lesser toe of left foot (Z89.422) Pain in left foot (M79.672) Blindness of right eye Diabetes mellitus type 2 ?? _ Discharge Medications Aspirin (Aspirin Low Dose 81 mg oral delayed release tablet)?2?tab(s)?162?Milligram?By Mouth?Daily Carvedilol (carvedilol 12.5 mg oral tablet)?12.5?Milligram?1?tablet?By Mouth?2 times a day Duloxetine (duloxetine 30 mg oral enteric coated capsule)?1?capsule?30?Milligram?By Mouth?Daily Durable Medical Equipment (Pen [place], 31 G x 5 mm BD Ultra [...] at bedtime?(NOT TAKING & HASN'T IN MONTHS) Metoclopramide (metoclopramide 5 mg oral tablet)?1?tab(s)?5?Milligram?By Mouth?Every 6 hours?as needed?Nausea & Vomiting?for 14?Days NIFEdipine (NIFEdipine 30 mg oral tablet, extended release)?30?Milligram?1?tablet?By Mouth?Daily?for 30?Days Ondansetron (ondansetron 4 mg oral tablet)?1?tab(s)?4?Milligram?By Mouth?Every 8 hours?as needed?Nausea & Vomiting Pantoprazole (pantoprazole 40 mg oral delayed release tablet)?1?tab(s)?40?Milligram?By Mouth?Daily Rosuvastatin (Crestor 5 mg oral tablet)?1?tab(s)?5?Milligram?By Mouth?Daily Scopolamine (scopolamine 1 mg/72 hr transdermal film, extended release)?1?Film?Topically?Every 72 hours torsemide (torsemide 20 mg oral tablet)?1?tab(s)?20?Milligram?By Mouth?Daily ? PCP Follow-Up/Heads-Up -??Discharge follow-up - Repeat set of blood work -Pain management Future Appointments Sunday 9:00 AM EST ?? With: Billy Cooper DO Where: [facility] [address] [place] [address]- Sunday 12:45 PM EST ?? With: Robin CARLSON, Jared Walters Where: [facility] [address] [place] [address]- Hospital Course 31 YOF with extensive PMH including HTN, DM type 2, CKD stage 3, DM retinopathy w/blindness to righteye, diabetic neuropathy, HFrEF (LVEF 35-40%), non-ischemic cardiomyopathy, anxiety, depression, asthma, hx of osteo to right foot now presenting to the ED with concern for ongoing pain and infection of the left foot. Upon presentation, she was found to be hemodynamically stable, afebrile. Initial labwork did not show any leukocytosis, Hgb 7.7, PLT 243, electrolytes normal, BUN/creatinine 25/3, blood glucose 92, calcium 8.2, elevated CRP 5.6, proBNP 39,706, high-sensitivity troponin 134?129?102, EKG with normal sinus rhythm, RBBB, no significant ST/T changes. Chest x-ray no acute findings, no pleural effusion. X-ray of the left foot with findings of the midfoot suggestive of charcot arthropathy also found to have erosion at the medial aspect of the navicular bone, osteomyelitis cannot be excluded and further evaluation with MRI is recommended. ?? She was evaluated by wound RN and was not noticed to have any deterioration. ID was consulted and antibiotics were held off. An MRI was obtained of the lower extremity without any evidence of osteomyelitis. Irrespective, patient required multiple doses of Dilaudid for her pain which is most likely neuropathic in nature. Given lack of fevers, leukocytosis and lack of evidence of vasculitis, decision was taken not to start antibiotics and to discharge patient home follow-up as an outpatient with her primary care physician. Her pain was most likely neuropathic in nature. ?? Objective . Physical Exam Constitutional: Alert, in no acute distress Respiratory: Clear to auscultation. No wheezing or crackles. No use of accessory muscles. Cardiovascular: S1S2 regular. No murmurs, rubs or gallops. Gastrointestinal: Abdomen soft, non-tender, non-distended. Extremities: R foot toes amputation, L foot 4th/5th transmetatarsal amputation, no erythema, significant tenderness or open wound Neurologic: AAOx3, Speech normal. No focal neurological deficits Pending Results Add On Lab Order ordered on 03/12/2022 Blood Culture ordered on 03/13/2022 Blood Culture #2 ordered on 03/13/2022 Patient Education Titles Discharge Instructions for Acute Kidney Injury?? Abdominal Pain?? Abdominal Pain?? Follow-Up Appointments Added Follow Up ?Time Frame ?Comments Chirag CARLSON, Abdon?1 week?Repeat set of blood workReview list of medications Post Discharge Care Discharge ?03/16/22 14:06:00 EST Home Health Face to Face ^HomeHealthFTF Results Discharge Labs BLOOD COUNT & DIFF WBC 5.9 k/mm3 ()?? 03/15/2022 08:44 RBC 3.26 m/mm3 (Low)?? 03/15/2022 08:44 Hgb 8.9 Gm/dL (Low)?? 03/15/2022 08:44 Hct 27.5 % (Low)?? 03/15/2022 08:44 MCV 84.4 femtoliters ()?? 03/15/2022 08:44 MCH 27.3 pg ()?? 03/15/2022 08:44 MCHC 32.4 g/dL (Low)?? 03/15/2022 08:44 Platelet Count 264 k/mm3 ()?? 03/15/2022 08:44 RDW-SD 46.2 femtoliters ()?? 03/15/2022 08:44 MPV 10.8 femtoliters ()?? 03/15/2022 08:44 Nucleated RBC (Automated) 0.0 #/100 WBC'S ()?? 03/15/2022 08:44 Abs. NRBC 0.0 k/mm3 ()?? 03/15/2022 08:44 Abs. Neut 2.7 k/mm3 ()?? 03/12/2022 16:55 Abs. Lymph 0.8 k/mm3 ()?? 03/12/2022 16:55 Abs. [place] 0.7 k/mm3 ()?? 03/12/2022 16:55 Abs. Eo 0.2 k/mm3 ()?? 03/12/2022 16:55 Abs. Baso 0.0 k/mm3 ()?? 03/12/2022 16:55 Neut % 61.4 % ()?? 03/12/2022 16:55 Lymph % 18.6 % ()?? 03/12/2022 16:55 [place] % 15.4 % (High)?? 03/12/2022 16:55 Eos % 3.9 % ()?? 03/12/2022 16:55 Baso % 0.2 % ()?? 03/12/2022 16:55 Imm Gran 0.5 % ()?? 03/12/2022 16:55 Abs. Imm Gran 0.0 k/mm3 ()?? 03/12/2022 16:55 ?? CARDIAC Nt-Probnp 45359 pg/mL (High)?? 03/12/2022 12:59 High Sensitivity Troponin (HSTnT) 102 ng/L (Critical)?? 03/12/2022 12:59 ?? CHEM GENERAL Sodium 138 mmol/L ()?? 03/15/2022 08:44 Potassium 4.1 mmol/L ()?? 03/15/2022 08:44 Chloride 106 mmol/L ()?? 03/15/2022 08:44 Bicarbonate Level 22 mmol/L ()?? 03/15/2022 08:44 Anion Gap 10 ()?? 03/15/2022 08:44 Glucose Level 133 mg/dL (High)?? 03/15/2022 08:44 Glucose, POC 84 mg/dL ()?? 03/16/2022 11:16 BUN 23 mg/dL (High)?? 03/15/2022 08:44 Creatinine-Blood 2.7 mg/dL (High)?? 03/15/2022 08:44 Estimated GFR Creatinine 23 ML/MIN/1.73 M2 ()?? 03/15/2022 08:44 Calcium 8.2 mg/dL (Low)?? 03/15/2022 08:44 C-Reactive Protein 5.6 mg/dL (High)?? 03/12/2022 12:59 ?? VIROLOGY Influenza A PCR NEGATIVE ()?? 03/12/2022 12:48 Influenza B PCR NEGATIVE ()?? 03/12/2022 12:48 RSV PCR NEGATIVE ()?? 03/12/2022 12:48 COVID-19 PCR Specimen Source NASAL ()?? 03/16/2022 05:44 COVID-19 PCR Result NEGATIVE ()?? 03/16/2022 05:44 ? 31 minutes spent on discharge Luan BETH, Renetta Snell: VERIFY, PERFORM, SIGN Event Display: Case Management Discharge Plan Authored Date: [id number] Patient: ROWAN TAYLOR Age: 31 years Sex: Female : 1990 Associated Diagnoses: None Author: Luan BETH, Renetta Snell Discharge Plan Case Management Discharge Plan : Case Management Discharge Plan Data 03/16/2022 15:04 EST Discharge Level of Care at Discharge Home/Care Home/Foster Care Discharge Medical Equipment [employer] Name of Agency #1 [facility] Categories #1 Oxygen Therapy 03/16/2022 15:03 EST Discharge Level of Care at Discharge Home/Care Home/Foster Care 03/10/2022 17:21 EST Discharge Level of Care at Discharge Home/Care Home/Foster Care Discharge Medical Equipment [employer] Shelly Silverman RN: PERFORM, MODIFY Event Display: Patient Education/Instruction Authored Date: [id number] Inpatient Adult Discharge Instructions [address] [address] Name: ROWAN TAYLOR : 1990 Visit: 03/12/2022 16:55:00 Current Date: 03/16/2022 14:07 Account: [id number] Inpatient Adult Discharge Instructions We would like [...] and their families. Surveys are administered by [employer]. ?? If further treatment with your primary care physician or another doctor is recommended, it is important for you to keep the appointment. Call your primary care physician or return to the Emergency Department immediately if your condition worsens, fails to improve, or new symptoms develop. If you need to find a doctor, you can call [facility] for a referral at [phone] or toll free at [phone] or log in to [email or web address] ?? You can view and manage your care through the patient portal or by using a health care calos of your choosing. [employer] is a website that allows you to securely view your medical information including your hospital discharge summary, office visit summaries, medications and follow-up visits. You can also request appointments, renew medications, and request access to your medical information using a health care calos of your choosing, or just ask a question. You can enroll at [email or web address] or register during your next office visit. You have been discharged from [facility], Patient Care Unit: S1. If you have any questions regarding these instructions after you leave, please call us and we will be happy to assist you. [facility] Your Care Team Attending Physician Denise CARLSON, [place] Consulting Providers Sascha Vasquez MD Discharging Providers Paxton Walker MD Reason for Admission Left heel pain, left body pain Your Diagnosis Diabetes mellitus type 2, insulin dependent Pain in left foot History of amputation of left great toe History of amputation of lesser toe of left foot Tests Performed Below is a partial list of the tests performed during your hospitalization. You may have had other tests and procedures not included in this list. Please discuss all test results with your provider. Basic Metabolic Panel C-REACTIVE PROTEIN CBC COMPLETE CBC WITH DIFF COVID-19 (2019 Novel Coronavirus) PCR COVID-19, RSV, and Flu A/B, Rapid PCR GLUCOSE POC High??Sensitivity??Troponin T ProBNP MRI Ext Lower W+W/O Contrast Left XR Chest 2 Views Frontal and Lat XR Foot Min 3 Views Left Primary Care Provider Abdon Beard MD Advance Directive Health Care Proxy on File Yes - Health Care Proxy No qualifying data available. Discharge Vitals Temperature: 97.3 DegF Height: 168 cm Pulse Rate: 81 bpm Weight: 88.6 kg Respiratory Rate: 18 br/min Body Mass Index:??31.39 kg/m2??Critical Systolic Blood Pressure: 135 mm Hg Body surface area: 2.03 Systolic Blood Pressure: 135 mm Hg ?? Diastolic Blood Pressure: 75 mm Hg ?? Diastolic Blood Pressure: 75 mm Hg ?? Oxygen Saturation: 98 % ?? Studies Pending All tests and labs ordered during this hospital stay have been completed unless listed below. Pleasediscuss all pending results with your provider listed above in these instructions. ?? Add On Lab Order Blood Culture Blood Culture #2 COVID-19 (2019 Novel Coronavirus) PCR What to do next Instructions From Your Doctor Discharge Orders Scheduled Follow-Up Appointments Sunday 9:00 AM EST ?? With: Billy Cooper DO Where: [facility] Gastroenterology [address] [place] [id number]- Sunday 12:45 PM EST ?? With: Jared Kelly MD Where: [facility] Cardiology [address] [place] [phone]- You Need to Schedule the Following Appointments Follow Up with??Abdon Beard MD When??Within 1 week Why: Repeat set of blood work Review list of medications Where: [address] [place] [phone]- Discharge Medications RANGELROWAN :1990 Visit Date:03/12/2022 Medications: Please continue your medications until treatment is completed or stopped by your provider. Medications not listed below should be discontinued. Discuss any questions related to medications with your provider. What How Much When Instructions Next Dose Unchanged Aspirin (Aspirin Low Dose 81 mg oral delayed release tablet) 2 tab(s) Oral Daily 03/17 9AM Unchanged Carvedilol (carvedilol 12.5 mg oral tablet) 1 tab(s) Oral Twice a day 03/16 9PM Unchanged Duloxetine (duloxetine 30 mg oral enteric coated capsule) 1 capsule Oral Daily 03/17 9AM Unchanged Durable Medical Equipment (Pen [place], 31 G x 5 mm BD Ultra Fine III) See instructions Duration: 30 Days use as directed for Type 2 Diabetes Mellitus ?? Unchanged Fluticasone Nasal (Flonase 50 mcg/ inh nasal spray) 1 spray(s) Nares, Both Twice a day 03/16 9PM Unchanged Insulin Aspart (NovoLOG FlexPen 100 units/ mL injectable solution) 11-12 UNITS Subcutaneous Injection 3 times a day before meals (NOT TAKING & HASN'T IN MONTHS) ?? As directed Unchanged Insulin Detemir (Levemir FlexTouch 100 units/ mL subcutaneous solution) 8 unit(s) Subcutaneous Injection Daily at Bedtime (NOT TAKING & HASN'T IN MONTHS) ?? 03/16 9PM Unchanged Metoclopramide (metoclopramide 5 mg oral tablet) 1 tab(s) Oral Every 6 hours as needed for Nausea & Vomiting Duration: 14 Days As directed Unchanged NIFEdipine (NIFEdipine 30 mg oral tablet, extended release) 1 tab(s) Oral Daily Duration: 30 Days 03/17 9AM Unchanged Ondansetron (ondansetron 4 mg oral tablet) 1 tab(s) Oral Every 8 hours as needed for Nausea & Vomiting As directed Unchanged Pantoprazole (pantoprazole 40 mg oral delayed release tablet) 1 tab(s) Oral Daily 03/17 9AM Unchanged Rosuvastatin (Crestor 5 mg oral tablet) 1 tab(s) Oral Daily 03/17 9AM Unchanged Scopolamine (scopolamine 1 mg/ 72 hr transdermal film, extended release) 1 Film Topically Every 72 hours As directed Unchanged torsemide (torsemide 20 mg oral tablet) 1 tab(s) Oral Daily 03/17 9AM Test Results Below is a partial list of the most recent Laboratory test results done prior to this discharge. You may have had other tests and procedures not included in this list. Please discuss all test results with your provider. Basic Metabolic Panel (03/15/2022) ???Sodium - 138 mmol/L???Potassium - 4.1 mmol/L???Chloride - 106 mmol/L???Bicarbonate Level - 22 mmol/L???Anion Gap - 10???Glucose Level - 133 mg/dL???BUN - 23 mg/dL???Creatinine-Blood - 2.7 mg/dL???Estimated GFR Creatinine - 23 ML/MIN/1.73 M2???Calcium - 8.2 mg/dL C-REACTIVE PROTEIN (03/12/2022) ???C-Reactive Protein - 5.6 mg/dL CBC (03/15/2022) ???WBC - 5.9 k/mm3???RBC - 3.26 m/mm3???Hgb - 8.9 Gm/dL???Hct - 27.5 %???MCV - 84.4 femtoliters???MCH - 27.3 pg???MCHC - 32.4 g/dL???Platelet Count - 264 k/mm3???RDW-SD - 46.2 femtoliters???MPV - 10.8 femtoliters???Nucleated RBC (Automated) - 0.0 #/100 WBC'S???Abs. NRBC - 0.0 k/mm3 COMPLETE CBC WITH DIFF (03/12/2022) ???WBC - 4.4 k/mm3???RBC - 2.78 m/mm3???Hgb - 7.7 Gm/dL???Hct - 23.5 %???MCV - 84.5 femtoliters???MCH - 27.7 pg???MCHC - 32.8 g/dL???Platelet Count - 223 k/mm3???RDW-SD - 47.1 femtoliters???MPV - 11.9 femtoliters???Nucleated RBC (Automated) - 0.0 #/100 WBC'S???Abs. NRBC - 0.0 k/mm3???Abs. Neut - 2.7 k/ mm3???Abs. Lymph - 0.8 k/mm3???Abs. [place] - 0.7 k/mm3???Abs. Eo - 0.2 k/mm3???Abs. Baso - 0.0 k/mm3???Neut % - 61.4 %???Lymph % - 18.6 %???[place] % - 15.4 %???Eos % - 3.9 %???Baso % - 0.2 %???Imm Gran - 0.5 %???Abs. Imm Gran - 0.0 k/mm3 COVID-19 (2019 Novel Coronavirus) PCR (03/15/2022) ???COVID-19 PCR Specimen Source - NASAL???COVID-19 PCR Result - NEGATIVE COVID-19, RSV, and Flu A/B, Rapid PCR (03/12/2022) ???Influenza A PCR - NEGATIVE???Influenza B PCR - NEGATIVE???RSV PCR - NEGATIVE???COVID-19 PCR Specimen Source - NASAL???COVID-19 PCR Result - NEGATIVE GLUCOSE POC (03/16/2022) ???Glucose, POC - 84 mg/dL High??Sensitivity??Troponin T (03/12/2022) ???High Sensitivity Troponin (HSTnT) - 102 ng/L ProBNP (03/12/2022) ???Nt-Probnp - 00772 pg/mL Allergies (NKA means No Known Allergies) Zosyn??(angioedema) morphine??(Itching) vancomycin??(Tightness in throat) Problems Active Problems??(15) Asthma?? Blindness of right eye?? Cardiac disease during , antepartum?? Care Coordination [facility], Hakan Angel, CC ?? CKD (chronic kidney [...] Belongings I fully understand and agree that [facility] accepts no responsibility for all [...] to send valuables and belongings home. ?? Review of Valuable and Belonging List: With patient, With witness Date for Pt to Sign Valuables/Belongings: 03/15/22 20:04:00 ?? Other Discharge Information ?? Wound Assessment?? Wound Assessment?? Wound Location I: Foot, left Wound I, Present on Admission: Yes ? Pulmonary Rehab Status?? Pulmonary Rehab Discharge [...] are strongly encouraged to quit. Please call [email or web address] Link at [phone] or [phone] m[facility] ([phone]) or log in to [email or web address] for referrals to smoking cessation programs. ?? The National Suicide Prevention Hotline is available 18/09 if you or someone you know needs to find areason to keep living. By calling 6-478-371-infoBizz (4783) you'll be connected to a skilled, trained counselor at a crisis center in your area. INPATIENT DISCHARGE INSTRUCTIONS SIGNATURE PAGE ROWAN TAYLOR Location:[facility] Registration Date and Time:03/12/2022 16:55 EST Primary Care Physician: Chirag CARLSON, [facility], I ROWAN TAYLOR, have received the above patient education materials/instructions and have verbalized understanding. If ambulance or transport services are being used I further acknowledge being given a choice of service. ?? If you need to contact me, please call me at this number: . 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 00114 Discharge Instructions for Acute Kidney Injury You have been diagnosed with acute kidney injury. This means that you have had a sudden episode of kidney failure or damage that causes your kidneys not to work correctly. When both kidneys are healthy, they help filter out fluid and waste from the blood and body.??Acute kidney injury has many causes. These include urinary blockages, infection, lack of enough blood supply, and medicines that can injure??kidneys. In some cases, acute kidney injury is short-term (temporary). This type lasts several days to a few months. This is because the kidney can repair itself. Acute kidney injury can also result in chronic kidney disease or end stage renal failure. Here are some directions for you to follow asyou recover. Home care ??? Follow any directions for eating and drinking given to you by your healthcare provider. o Drink less fluid, if directed by your healthcare provider. o Keep a record of everything you eatand drink. ??? Measure the amount of urine and stool you have each day. ??? Weigh yourself every day, at the same time of day, and in the same kind of clothes. Keep a daily record of your daily weights. ??? Take your temperature every day. Keep a record of the results. ??? Learn to take your own bloodpressure (BP). Your healthcare provider can teach you how to correctly measure your BP. Keep a record of your results. Bring the record to your follow-up appointments. Ask your healthcare provider whenyou should seek emergency medical attention. Your provider will tell you what blood pressure readingis dangerous. ??? Stay away from people who have infections. This includes people with colds, bronchitis, or skin conditions. ??? Practice good personal??hygiene. Wash your hands often. This is especially important if you have a catheter in place when you leave the hospital. Doing so helps keep you safe from infection. ??? Take your medicines exactly as directed. ??? You may need frequent blood and urine tests. These are done to keep track of your kidney function. ?? Follow-up care Follow up with your healthcare provider, or as advised. ?? When to call your healthcare provider Call your??healthcare provider??right away if any of the following occur: ??? Signs of bladder infection, such as urinating more often, burning or pain when you pee, pain above your pubic bone, blood in your urine, or trouble starting your urine stream ??? Signs of infection around your catheter, such as redness, swelling, warmth, or fluid leaking ??? Rapid weight loss or weight gain, such as 3??pounds or more in 24 hours or 6 pounds or more in 7 days ??? Fever above 100.4?? F ( 38??C ) or as directed by your healthcare provider ??? Chills ??? Muscle aches ??? Night sweats ??? Very little or no urine output ??? Swelling of your hands, legs, or feet ??? Back pain ??? Abdominal (belly) pain ??? Extreme tiredness ?? Last Reviewed Date: 2022 ?? [employer]. All rights reserved. This information is not intended as a substitute for professional medical care. Always follow your healthcare professional's instructions. ??Shelly Silverman RN: PERFORM Event Display: Patient Education Leaflets Authored Date: [id number] Abdominal Pain ?? 83273 Abdominal Pain We understand that gender is a spectrum. We may use gendered terms to talk about anatomy and healthrisk. Please use this information in a way that works best for you and your provider as you talk about your care. Abdominal pain means pain in the stomach or belly area. Everyone has this kind of pain from time totime. In many cases it goes away on its own. Some types of abdominal pain can be from a serious problem. One example is appendicitis. So it???s important to know when to get help. Causes of abdominal pain There are many causes of abdominal pain. Common causes in adults include: ??? Constipation, diarrhea, or gas ??? Stomach and intestine inflammation from a virus or bacteria (gastroenteritis) ??? Stomach acid flowing back up into the esophagus (acid reflux) ??? Severe acid reflux, called gastroesophageal reflux disease (GERD) ??? A sore in the lining of the stomach or small intestine (peptic ulcer) ??? Inflammation of the gallbladder, liver,??or pancreas ??? Gallstones or kidney stones ??? Appendicitis? Intestinal blockage? An internal organ pushing through a muscle or other tissue (hernia) ??? Urinary tract infections ??? Menstrual cramps ??? Fibroids in the uterus ??? Ovarian cysts ???Pelvic inflammatory disease in women ??? Endometriosis ??? Crohn's disease ??? Ulcerative colitis ??? Irritable bowel syndrome ?? Diagnosing the cause of abdominal pain Your healthcare provider will give you a physical exam. This is to help find the cause of your pain. If needed, you'll have tests. Belly pain has many possible causes. So it may take a little time to find the reason for your pain. Give details about the type of pain you feel. Tell your provider if it's sharp or dull. Tell them where and when you feel the pain. Tell them what makes it better or worse. And tell them if you have other symptoms such as: ??? Fever ??? Tiredness ??? Upset stomach (nausea) ??? Vomiting ??? Changes in bathroom habits ??? Blood in the stool or black, tarry stool ??? Unexpected weight loss Tell your provider: ??? If you have a family history of stomach or intestinal problems or cancer ??? About your alcohol use and any illegal drug use ??? All medicines you take, both prescription and over the counter ??? What vitamins, herbs, and other supplements you take ?? Treating abdominal pain Some causes of pain need emergency medical care right away. These include appendicitis or a bowel blockage. Other problems can be treated with rest, fluids, or medicines. Your healthcare provider can give you instructions. You may need treatment or self-care based on what's causing your pain. If you have vomiting or diarrhea,??sip water or other clear fluids. When you're ready to eat solid foods again, start lightly. Eat small amounts of loal-fi-hnusay, low-fat foods. These include applesauce, toast, or crackers. ?? Call 911 Call 911??right away if you: ??? Can???t pass stool and are vomiting ??? Are vomiting blood ??? Have bloody diarrhea or black, tarry diarrhea ??? Have chest, neck, or shoulder pain ??? Feel like you might pass out (faint) ??? Have pain in your shoulder blades and nausea ??? Have sudden, severe belly pain ??? Have new, severe??pain unlike any you've felt before ??? Have a belly that is rigid, hard, and hurts to touch ?? When to call the healthcare provider Call your healthcare provider right away if you have any of these: ??? Pain that's worse or not getting better ??? Bloating that's worse or not getting better ??? Diarrhea that's worse or not getting better ??? Fever of 100.4??F (38??C) or higher, or as advised ??? Weight loss for no reason ??? Continued lack of appetite ??? Blood in your stool ?? How to prevent abdominal pain Here are some tips to help prevent abdominal pain: ??? Eat smaller amounts of food at each meal. ??? Don't eat greasy, fried, or other high-fat foods.??? Don't eat foods that give you gas. ??? Exercise regularly. ??? Drink plenty of fluids. To help prevent GERD symptoms: ??? Quit smoking. ??? Reduce alcohol and foods that increase stomachacid. ??? Don't use aspirin or nonsteroidal anti- inflammatory drugs (NSAIDs). ??? Lose excess weight. ??? Finish eating at least 2 hours before you go to bed or lie down. ??? Raise the head of your bed. ?? Last Reviewed Date: 2020 ?? [employer]. All rights reserved. This information is not intended as a substitute for professional medical care. Always follow your healthcare professional's instructions. ??Shelly Silverman RN: PERFORM Event Display: Patient Education Leaflets Authored Date: [id number] Abdominal Pain ?? 65948 Abdominal Pain We understand that gender is a spectrum. We may use gendered terms to talk about anatomy and healthrisk. Please use this information in a way that works best for you and your provider as you talk about your care. Abdominal pain means pain in the stomach or belly area. Everyone has this kind of pain from time totime. In many cases it goes away on its own. Some types of abdominal pain can be from a serious problem. One example is appendicitis. So it???s important to know when to get help. Causes of abdominal pain There are many causes of abdominal pain. Common causes in adults include: ??? Constipation, diarrhea, or gas ??? Stomach and intestine inflammation from a virus or bacteria (gastroenteritis) ??? Stomach acid flowing back up into the esophagus (acid reflux) ??? Severe acid reflux, called gastroesophageal reflux disease (GERD) ??? A sore in the lining of the stomach or small intestine (peptic ulcer) ??? Inflammation of the gallbladder, liver,??or pancreas ??? Gallstones or kidney stones ??? Appendicitis? Intestinal blockage? An internal organ pushing through a muscle or other tissue (hernia) ??? Urinary tract infections ??? Menstrual cramps ??? Fibroids in the uterus ??? Ovarian cysts ???Pelvic inflammatory disease in women ??? Endometriosis ??? Crohn's disease ??? Ulcerative colitis ??? Irritable bowel syndrome ?? Diagnosing the cause of abdominal pain Your healthcare provider will give you a physical exam. This is to help find the cause of your pain. If needed, you'll have tests. Belly pain has many possible causes. So it may take a little time to find the reason for your pain. Give details about the type of pain you feel. Tell your provider if it's sharp or dull. Tell them where and when you feel the pain. Tell them what makes it better or worse. And tell them if you have other symptoms such as: ??? Fever ??? Tiredness ??? Upset stomach (nausea) ??? Vomiting ??? Changes in bathroom habits ??? Blood in the stool or black, tarry stool ??? Unexpected weight loss Tell your provider: ??? If you have a family history of stomach or intestinal problems or cancer ??? About your alcohol use and any illegal drug use ??? All medicines you take, both prescription and over the counter ??? What vitamins, herbs, and other supplements you take ?? Treating abdominal pain Some causes of pain need emergency medical care right away. These include appendicitis or a bowel blockage. Other problems can be treated with rest, fluids, or medicines. Your healthcare provider can give you instructions. You may need treatment or self-care based on what's causing your pain. If you have vomiting or diarrhea,??sip water or other clear fluids. When you're ready to eat solid foods again, start lightly. Eat small amounts of dtrp-jj-ladyby, low-fat foods. These include applesauce, toast, or crackers. ?? Call 911 Call 911??right away if you: ??? Can???t pass stool and are vomiting ??? Are vomiting blood ??? Have bloody diarrhea or black, tarry diarrhea ??? Have chest, neck, or shoulder pain ??? Feel like you might pass out (faint) ??? Have pain in your shoulder blades and nausea ??? Have sudden, severe belly pain ??? Have new, severe??pain unlike any you've felt before ??? Have a belly that is rigid, hard, and hurts to touch ?? When to call the healthcare provider Call your healthcare provider right away if you have any of these: ??? Pain that's worse or not getting better ??? Bloating that's worse or not getting better ??? Diarrhea that's worse or not getting better ??? Fever of 100.4??F (38??C) or higher, or as advised ??? Weight loss for no reason ??? Continued lack of appetite ??? Blood in your stool ?? How to prevent abdominal pain Here are some tips to help prevent abdominal pain: ??? Eat smaller amounts of food at each meal. ??? Don't eat greasy, fried, or other high-fat foods.??? Don't eat foods that give you gas. ??? Exercise regularly. ??? Drink plenty of fluids. To help prevent GERD symptoms: ??? Quit smoking. ??? Reduce alcohol and foods that increase stomachacid. ??? Don't use aspirin or nonsteroidal anti- inflammatory drugs (NSAIDs). ??? Lose excess weight. ??? Finish eating at least 2 hours before you go to bed or lie down. ??? Raise the head of your bed. ?? Last Reviewed Date: 2020 ?? [employer]. All rights reserved. This information is not intended as a substitute for professional medical care. Always follow your healthcare professional's instructions. ??CLIFFSPSARANYA dallas S: TRANSCRITOBY Cortez MD, Lenny W: VERIFY Event Display: Result: Authored Date: [id number] INDICATION: Foot infection. Question osteomyelitis. Suspicion for osteomyelitis of the navicular on prior radiograph. TECHNIQUE: Multiplanar multisequence MRI of the left foot was obtained with and without intravenous contrast material. 17 mL of Clariscan intravenous contrast was administered. COMPARISONS: Radiographs 03/12/2022 FINDINGS: Study is degraded by patient motion artifact. Bone: Patient status post amputation of the first metatarsal. Status post amputation of the fifth digit at the metatarsophalangeal joint. Chronic deformity of the fourth metatarsal phalangeal joint. Chronic Charcot changes in the midfoot. No MRI evidence of osteomyelitis. Soft tissues: No abscess. No tibiotalar joint effusion. Diffuse edema involving the intrinsic muscles of the foot, common finding in diabetic neuropathy. IMPRESSION: No MRI evidence of osteomyelitis. Postoperative changes as well as Charcot changes as described above. WSN: [id number] Ordering Physician: Paxton Walker Dictated By: Lenny Cortez MD Dictated Date/Time: 03/16/22 7:52 am Reviewed By: eLnny Cortez MD Signed By: Lenny Cortez MD Signed Date/Time: 03/16/22 7:52 am Transcribed By: ALEXIS Transcribed Date/Time: 03/16/22 7:43 Lynda , SARANYA S: TRANSCRIBE Mihai Germain MD: VERIFY Event Display: Result: Authored Date: [id number] Chest 2 Views Frontal and Lat Hx of Present Illness: L heel L side pain, SOB; Reason: Shortness of Breath; Clinical Question(s): CHF / CHF COMPARISON: 02/26/2022 FINDINGS: LINES AND TUBES: None. LUNGS AND PLEURA: Clear lungs. Normal pulmonary vascularity. No pleural effusion. No pneumothorax. HEART, MEDIASTINUM AND EVERT: Mild prominence of the cardiac silhouette. Normal mediastinal and hilar contour. BONES AND SOFT TISSUES: No acute abnormality. IMPRESSION: No evidence of acute abnormality. WSN: [id number] Ordering Physician: Christy James Dictated By: Mihai Germain MD Dictated Date/Time: 03/12/22 3:45 pm Reviewed By: Mihai Germain MD Signed By: Mihai Germain MD Signed Date/Time: 03/12/22 3:45 pm Transcribed By: ALEXIS Transcribed Date/Time: 03/12/22 3:44 pm XR Foot - left GE 3 Views BHSPowerscribe , CIS S: TRANSCRIBE Mihai Germain MD: VERIFY Event Display: Result: Authored Date: [id number] Foot Min 3 Views Left, 3 views Hx of Present Illness: L heel L side pain, SOB; Reason: Pain; with Pain; Clinical Question(s): Fracture; osteomyelitis; Special Instructions: attention to great toe and second toe COMPARISON: None. FINDINGS: Status post amputation of the first ray at the proximal metatarsal and of the fifth ray at the MTP joint. Chronic appearing deformity of the distal fourth metatarsal, may be due to prior injury or resection. Diffuse joint space narrowing and sclerosis throughout the mid foot. Cortical erosion of the medial aspect of the navicular. Soft tissue swelling around the mid foot and the forefoot. IMPRESSION: Findings at the midfoot are suggestive of Charcot arthropathy, but there appears to be erosion at the medial aspect of the navicular. Osteomyelitis is not excluded, and further evaluation with MRI is recommended. WSN: [id number] Ordering Physician: Christy James Dictated By: Mihai Germain MD Dictated Date/Time: 03/12/22 3:49 pm Reviewed By: Mihai Germain MD Signed By: Mihai Germain MD Signed Date/Time: 03/12/22 3:49 pm Transcribed By: ALEXIS Transcribed Date/Time: 03/12/22 3:47 pm Patient Care team information Care Team PersonnelName: Anuradha Morris RN Position: [facility] RN Member Role: Primary Care Nurse [...] Care Nurse Name: Gomez Moseley RN Position: [facility] RN Supv Member Role: Primary Care Nurse Name: Vashti Bruce RN Position: S RN Member Role: Primary Care Nurse Name: Raghav Granger Position: [facility] RN Member Role: Primary Care Nurse Name: Cassy Caraballo RN Position: [facility] RN Member Role: Primary Care Nurse Name: Jodi Carrillo RN Position: [facility] RN Member Role: Primary Care Nurse Name: Abbey Shelley RN Position: [facility] RN Member Role: Primary Care Nurse Name: Larissa Barnett RN Position: [facility] RN Member Role: Primary Care Nurse Name: Inna Beckwith RN Position: [facility] RN Member Role: Primary Care Nurse Name: Cady Araya RN Position: [facility] RN Member Role: Primary Care Nurse Name: Abdon Beard MD Position: [facility] Outreach Member Role: PCP Address: Address: [address] [place] [address]- [place] Name: Michele Blancas DO Position: [facility] Renal MD Member Role: Lifetime Consulting Physician Address: Address: [address] [place], [place] [address] [place] [address]- [place] Name: María Acosta RN Position: [facility] RN Member Role: Primary Care Nurse Name: Treasure Gilbert RN Position: [facility] RN Supv Member Role: Primary Care Nurse Name: Stefany Grajeda RN Position: [facility] RN Member Role: Primary Care Nurse Name: Farzana Sevilla Position: [facility] RN Member Role: Primary Care Nurse Name: Javan Pimentel MD Position: [facility] Renal MD Member Role: Lifetime Consulting Physician Address: Address: [address] [facility] [address] [facility], [place] [address]- [place] Name: Heather Pal RN Position: [facility] RN Member Role: Primary Care Nurse Name: Jody Rasmussen RN Position: [facility] RN Member Role: Primary Care Nurse Name: Mau Hazel RN Position: [facility] RN Member Role: Primary Care Nurse Name: Pedro Taylor RN Position: [facility] RN Member Role: Primary Care Nurse Name: Charlotte Singletary RN Position: [facility] OB RN Member Role: Primary Care Nurse Name: Alison Jose RN Position: [facility] RN Member Role: Primary Care Nurse Name: Kendall Coleman RN Position: [facility] RN Member Role: Primary Care Nurse Name: Nancy Fair RN Position: [facility] SN RN Member Role: Primary Care Nurse Name: Sofie Reed Position: [facility] RN Member Role: Primary Care Nurse Name: Fernando Siddiqi MD Position: [facility] Renal MD Member Role: Lifetime Consulting Physician Address: Address: [address] [place] [address] [facility] [address] Name: Kaelyn Lewis RN Position: [facility] RN Member Role: Primary Care Nurse Name: Lianne Byrnes RN Position: [facility] RN Member Role: Primary Care Nurse Name: Tona Jacome LPN Position: [facility] RN Member Role: Primary Care Nurse Name: Kaitlin BETH, Tatiana Dennis Position: [facility] RN Member Role: Primary Care Nurse Name: Jose Callejas RN Position: [facility] RN Member Role: Primary Care Nurse Name: Ashely Riley Position: [facility] RN Member Role: Primary Care Nurse Name: Vy RAMIREZ Attending Position: [facility] ED Medicine MD Name: Dianelys Driver RN Position: [facility] ED RN W/OE and Tasks Member Role: Patient Care Provider Name: Samantha Rosa RN Position: [facility] ED RN W/OE and Tasks Member Role: Patient Care Provider Care Team Related PersonsName: LEONOR MCFARLAND Address: home [address] [place] [address] Name: REJI TAYLOR Address: home [address] [place] [address] Name: JEFF CHAPMAN Address: [address] Address: home [address] [address] [place] Name: ELI BONILLA Address: home [address] [address]
--- OUTSIDE RECORDS SUMMARY | 2022-03-31 18:21 | XMS_ITS | Continuity of Care Document ---
:1990 Author Organization [facility] Address [address] [place] [address]- Care Team Providers Name Role Phone Abdon Beard MD Primary Care Physician Encounter [facility] [place] Date(s): 02/04/21 - 03/06/21 [facility] [address] [place] [id number] Attending Physician: Michael Marquez Admitting Physician: [...] '[id number] Note: TD4 Admin Note: unknown exact [id number] Note: unknown exact date Medications amLODIPine 10 [...] 06/10/21 15:59:00 EDT, 02/28/21 15:59:00 EST, Capsule, [facility], Partial fill upon patient request... Start Date: 02/28/21 Stop Date: 06/10/21 Status: Ordereddiclofenac 1% topical gel = 2 Gm, Topically, 4 times a day, # 112 Gm, 0 Refills, Maintenance, 02/05/21 12:34:00 EST, Gel, [facility], Partial fill upon patient [...] Take 1 tablet daily in the morning. E1165. 90-day supply.,# 90 tablet, 3 Refills, Maintenance, 11/17/20 10:19:00 EDT, Tablet, [id number], Partial fillupon patient request if the prescription is for a... Start Date: 11/17/20 Status: OrderedLevemir FlexTouch 100 units/mL subcutaneous solution See Instructions, Take 40 units once daily. E11. 90-day supply., # 45 mL, 3 Refills, [...] 11-21 units, 3 times daily before meals. E11. 90-day supply., # 75 mL, 3 Refills, [...] Active Obese class I(Confirmed) Active Care Coordination [facility], [place] Active Jeanne, CC (Confirmed) delivery(Confirmed) Active delivery(Confirmed) Active 1Not seem at [facility] since 08/12/2016. Multiple no show in our center. She is seen by other provider Dr Matt Gutierrez by pharmacy records. Social History Social History Type Response Smoking Status Never smoker entered on: 03/28/17 Sex
--- OUTSIDE RECORDS SUMMARY | 2022-03-31 18:21 | XMS_ITS | Continuity of Care Document ---
:1990 Author Organization [facility] Address [address] [place] [address]- Care Team Providers Name Role Phone Abdon Beard MD Primary Care Physician Encounter [facility] Date(s): 06/20/21 - 07/20/21 [facility] [address] [place] [address]- Allergies, Adverse Reactions, Alerts Substance Reaction Severity [...] '[id number] Note: TD4 Admin Note: unknown exact [id number] Note: unknown exact date Medications acetaminophen 325 [...] 06/18/21 9:46:00 EDT, Route to Pharmacy Electronically, [facility], Partial fill upon patient request if the prescription is for a schedule II opioid... Start Date: 06/18/21 Status: Orderedatorvastatin 40 mg oral tablet 1 tablet = 40 mg, By Mouth, Daily at bedtime, Follow-up with your primary care doctor for further refills., # 30 tablet, 1 Refills, Maintenance, 06/18/21 9:46:00 EDT, Tablet, [facility], Partial fill upon patient request if the prescript... Start Date: 06/18/21 Status: Orderedcephalexin monohydrate 500 mg oral capsule 1 capsule = 500 mg, By Mouth, Every 6 hours, for 14 days, # 56 capsule, 0 Refills, Acute 07/28/21 16:28:00 EDT, 07/14/21 16:28:00 EDT, Capsule, [id number], Partial fill upon patient request if the prescription is for a schedule II opioid drug.... Start Date: 07/14/21 Stop Date: 07/28/21 Status: Orderedduloxetine 30 mg oral enteric coated capsule 1 capsule = 30 mg, By Mouth, 2 times a day, # 60 capsule, 0 Refills, Maintenance, 06/18/21 9:46:00 EDT, Capsule, [facility], Partial fill [...] Refills, Maintenance, 11/17/20 10:19:00 EDT, Tablet, [facility][id number], Partial fillupon patient request if the prescription is for a... Start Date: 11/17/20 Status: OrderedLasix 20 mg oral tablet 20 mg, 1, tablet, By Mouth, Every other day, Follow-up with your primary care doctor for further refills., # 30 tablet, Refills 0, Tot. Refills 0, Maintenance, 07/14/21 16:27:00 EDT, Route to Pharmacy Electronically, [id number], Partial fill u... Start Date: 07/14/21 Status: OrderedLevemir FlexTouch 100 units/mL subcutaneous solution = 8 units, Subcutaneous Injection, Daily at bedtime, # 10 mL, 0 Refills, Maintenance, 06/19/21 9:20:00 EDT, Injection, [facility], Partial fill upon patient request if the prescription isfor a schedule II opioid drug., 167.6, cm, ... Start Date: 06/19/21 Stop Date: 07/19/21 Status: Orderedlidocaine 5% topical film 1 patch, Topically, Daily, PRN Pain , Mild, remove after 12 hours, # 13 each, 0 Refills, Maintenance, 04/19/21 11:26:00 EST, Film, [id number], Partial fill upon patient request if the prescription is for a schedule II opioid drug., 1 patch Top... Start Date: 04/19/21 Status: Orderedlisinopril 5 mg oral tablet 5 mg, 1, tablet, By Mouth, Daily, # 30 tablet, Refills 0, Tot. Refills 0, Maintenance, 07/14/21 16:28:00 EDT, [id number] Partial fill upon patient request if [...] Refills, Maintenance, 03/31/21 14:26:00 EST, Tablet, [id number], Partial fill... Start Date: 03/31/21 Status: OrderedoxyCODONE 5 mg oral tablet 5 mg, 1, tablet, By Mouth, Every 6 hours, PRN, Refills 0, Tot. Refills 0, Pain , Severe Start Date: 06/09/21 Status: OrderedPen [place], 30 G x 8 mm BD Ultra [...] 07/28/21 16:29:00 EDT, 07/14/21 16:29:00 EDT, Tablet, [id number], Partial fill upon patient [...] type 2(Confirmed)1 Active Hypertension(Confirmed) Active Care Coordination [facility], [place] Active Jeanne, CC (Confirmed) delivery(Confirmed) Active delivery(Confirmed) Active 1Not seem at [facility] since 08/12/2016. Multiple no show in our center. She is seen by other provider Dr Matt Gutierrez by pharmacy records. Social History Social History Type Response Smoking Status Never (less than 100 in life time) entered on: 04/23/21 Sex
--- OUTSIDE RECORDS SUMMARY | 2022-03-31 18:22 | XMS_ITS | Continuity of Care Document ---
:1990 Author Organization [facility] p Address [address] [place] [address], [address] [place] [id number]- Care Team Providers Name Role Phone Abdon Beard MD Primary Care Physician Encounter [facility] Date(s): 08/01/21 - 08/31/21 [facility] [employer] [facility] [address] [place] [address], [address] [place] [id number] Allergies, Adverse Reactions, Alerts Substance [...] '[id number] Note: TD4 Admin Note: unknown exact [id number] Note: unknown exact date Medications acetaminophen 325 [...] 08/24/21 11:43:00 EDT, Route to Pharmacy Electronically, [id number], Partial fill upon patient request ifthe prescription [...] capsule, 3 Refills, Maintenance, 08/24/21 11:44:00EDT, Capsule, [id number], Partial fill upon patient request if the [...] 08/24/21 11:44:00 EDT, Route to Pharmacy Electronically, [id number], Partial fill u... Start Date: 08/24/21 Status: OrderedLevemir FlexTouch 100 units/mL subcutaneous solution = 8 units, Subcutaneous Injection, Daily at bedtime, # 10 mL, 0 Refills, Maintenance, 08/24/21 11:26:00 EDT, Injection, [facility][id number], Partial fill upon patient request if the prescription is for a schedule II opioid drug., 168, cm, 08/24/21 10:3... Start Date: 08/24/21 Stop Date: 09/23/21 Status: OrderedMetoprolol Tartrate 25 mg oral tablet 1.5 tablet = 37.5 mg, By Mouth, 2 times a day, # 90 tablet, 3 Refills, Maintenance, 08/24/21 11:44:00 EDT, Tablet, [id number], Partial fill upon patient request if [...] Dry Weight Start Date: 08/24/21 Status: OrderedPen [place], 30 G x 8 mm BD Ultra [...] Refills, Maintenance, 08/24/21 11:27:00 EDT, Chew Tablet, [id number], Partial fill upon patient request if the prescription is for a schedule II opioid drug., 1 tablet Chew Daily, 168estefany, 08/24/21 10:36:0... Start Date: 08/24/21 Status: OrderedProAir HFA 90 mcg/inh inhalation aerosol See Instructions, PRN Wheezing/Shortness of Breath, Inhale 2 puff every 4 to 6 hours as needed, # 18Gm, 0 Refills, Maintenance, 08/24/21 11:43:00 EDT, Inhaler, [facility][id number], Partial fill upon patient request if [...] Acute 09/22/21 0:00:00 EDT, 08/23/21 13:06:00 EDT, [facility][id number], Partial fill upon patient request if [...] is for a schedule II opioid drug., 168estefany, 08/22/21 13:44:... Start Date: 08/23/21 Stop Date: [...] Active Obese class I(Confirmed) Active Care Coordination [facility], [place] Active Jeanne, CC (Confirmed) Pre-existing diabetes mellitus Active affecting , antepartum(Confirmed) Poor vision(Confirmed)6 Active 1Managed by PCP. WEll controlled.2Self-manages. States currently stable. No medications.3Not seem at [facility] since 08/12/2016. Multiple no show in our center. She is seen by other provider Dr Matt Gutierrez by pharmacy records.4Managed by [id number] by PCP with [id number], states sees shadows and has blurry vision. Last eye doctor appointment was several years ago. Social History Social History Type Response Smoking Status Never (less than 100 in life time) entered on: 08/22/21 Sex
--- OUTSIDE RECORDS SUMMARY | 2022-03-31 18:22 | XMS_ITS | Continuity of Care Document ---
:1990 Author Organization [facility] Address [address] [place] [id number]- Care Team Providers Name Role Phone Chirag CARLSON, Abdon Primary Care Physician [facility]counter [facility] Date[facility]s): 06/09/21 - 06/19/[address] [address] Encounter Diagnosis COVID-19 (Final) - 06/09/21 COVID-19 (Final) - 06/09/21 Discharge Disposition: A-Transfer VNA/Home Health Attending Physician: Brenden Munguia MD Admitting Physician: Ankush Sheridan MD Referring Physician: Not on Staff, Referring MD Allergies, Adverse Reactions, Alerts Substance Reaction Severity Status vancomycin1, 2 Tightness in throat Active morphine Active Zosyn angioedema Severe Active 1Tolerates again Per chart: [...] '943Admin Note: TD4 Admin Note: unknown exact [id number] Note: unknown exact date Medications acetaminophen 325 [...] 06/18/21 9:46:00 EDT, Route to Pharmacy Electronically, [facility], Partial fill upon patient request if the prescription is for a schedule II opioid... Start Date: 06/18/21 Status: OrderedamLODIPine 10 mg oral tablet 10 mg, Tablet, By Mouth, 06/19/21 9:00:00 EDT Start Date: 06/19/21 Stop Date: 06/19/21 Status: Completedatorvastatin 40 mg oral tablet 1 tablet = 40 mg, By Mouth, Daily at bedtime, Follow-up with your primary care doctor for further refills., # 30 tablet, 1 Refills, Maintenance, 06/18/21 9:46:00 EDT, Tablet, [facility], Partial fill upon patient request if the prescript... Start Date: 06/18/21 Status: OrderedceFAZolin 2 g/100 mL-D5% intravenous solution See Instructions, 2 gram every 8 hours until 07/24/2021, # 111 each, 0 Refills, Maintenance, :53:00 EDT, Partial fill upon patient request if the prescription is for a schedule II opioid drug. Start Date: 06/18/21 Status: OrderedDilaudid Inj 0.5 mg, Injection, IV Push Slowly, Every 4 hours, Verified with patient???not allergic to Dilaudid, Hold for: Oversedation, PRN for Pain , Severe, Routine, 06/12/21 10:51:00 EDT Start Date: 06/12/21 Stop Date: 06/19/21 Status: Discontinueddocusate-senna 50 mg-187 mg oral tablet 2 tablet, By Mouth, 2 times a day, PRN Constipation, for 14 days, # 60 tablet, 0 Refills, Acute 07/02/21 9:47:00 EDT, 06/18/21 9:47:00 EDT, Tablet, [facility], Partial fill upon patient request if the prescription is for a schedule II op... Start Date: 06/18/21 Stop Date: 07/02/21 Status: Orderedduloxetine 30 mg oral enteric coated capsule 1 capsule = 30 mg, By Mouth, 2 times a day, # 60 capsule, 0 Refills, Maintenance, 06/18/21 9:46:00 EDT, Capsule, [facility], Partial fill upon patient [...] 3 Refills, Maintenance, 11/17/20 10:19:00 EDT, Tablet, [facility]/pharmacy #[id number], Partial fillupon patient request if the prescription is for a... Start Date: 11/17/20 Status: OrderedLasix 20 mg oral tablet 20 mg, 1, tablet, By Mouth, Daily, Follow-up with your primary care doctor for further refills., # 30 tablet, Refills 0, Tot. Refills 0, Maintenance, 06/18/21 9:46:00 EDT, Route to Pharmacy Electronically, [facility], Partial fill upon p... Start Date: 06/18/21 Status: OrderedLevemir FlexTouch 100 units/mL subcutaneous solution = 8 units, Subcutaneous Injection, Daily at bedtime, # 10 mL, 0 Refills, Maintenance, 06/19/21 9:20:00 EDT, Injection, [facility], Partial fill upon patient request if the prescription isfor a schedule II opioid drug., 167.6, cm, ... Start Date: 06/19/21 Stop Date: 07/19/21 Status: Orderedlidocaine 5% topical film 1 patch, Topically, Daily, PRN Pain , Mild, remove after 12 hours, # 13 each, 0 Refills, Maintenance, 04/19/21 11:26:00 EST, Film, [facility]/pharmacy #[id number], Partial fill upon patient request if the prescription is for a schedule II opioid drug., 1 patch Top... Start Date: 04/19/21 Status: Orderedmetoprolol 25 mg oral tablet 37.5 mg, 1.5, tablet, By Mouth, 2 times a day, # 90 tablet, Refills 0, Tot. Refills 0, Maintenance, 06/18/21 9:46:00 EDT, Route to Pharmacy Electronically, [facility] 3, Partial fill upon patient request if the prescription is for a schedu... Start Date: 06/18/21 Status: Orderedmetoprolol 25 mg oral tablet 37.5 mg, Tablet, By Mouth, 06/19/21 9:00:00 EDT Start Date: 06/19/21 Stop Date: 06/19/21 Status: Completedmetoprolol 25 mg oral tablet 37.5 mg, Tablet, By Mouth, 06/18/21 21:00:00 EDT Start Date: 06/18/21 Stop Date: 06/18/21 Status: CompletedMiraLax oral powder for reconstitution = 17 Gm, By Mouth, Daily, for 7 days, dissolve in water before taking, # 119 Gm, 0 Refills, Acute 06/25/21 9:47:00 EDT, 06/18/21 9:47:00 EDT, REC Powder, [facility], Partial fill upon patient request if the prescription is for a schedule... Start Date: 06/18/21 Stop Date: 06/25/21 Status: Orderednitroglycerin 0.4 mg sublingual tablet 1 tablet = 0.4 mg, Sublingual, Every 5 minutes, PRN as needed for chest pain, not to exceed 3 doses/15 min--if pain persists, seek medical attention, # 25 tablet, 0 Refills, Maintenance, 03/31/21 14:26:00 EST, Tablet, [facility]/pharmacy #[id number], Partial fill... Start Date: 03/31/21 Status: OrderedoxyCODONE 5 mg oral tablet 5 mg, Tablet, By Mouth, 06/19/21 9:00:00 EDT Start Date: 06/19/21 Stop Date: 06/19/21 Status: CompletedoxyCODONE 5 mg oral tablet TAKE 1 TABLET BY MOUTH EVERY 6 HOURS NEEDED FOR PAIN Start Date: 06/09/21 Status: Ordered[place], 30 G x 8 mm BD Ultra Fine II See Instructions, # 300 each, Refills 2, Tot. Refills 2, Maintenance, use as directed for Type 2 Diabetes Mellitus, 06/18/21 9:51:00 EDT, Supply, 167.6, cm, 06/18/21 8:09:00 EDT, Height, 75.8, kg, 06/09/21 11:38:00 EDT, Dry Weight Start Date: 06/18/21 Stop Date: 03/15/22 Status: Orderedprochlorperazine 10 mg oral tablet 1 tablet = 10 mg, By Mouth, 3 times a day, PRN Nausea & Vomiting, for 3 days, # 9 tablet, 0 Refills, Acute 06/22/21 9:21:00 EDT, 06/19/21 9:21:00 EDT, Tablet, [facility], Partial fillupon patient request if the prescription is for a abhi... Start Date: 06/19/21 Stop Date: 06/22/21 Status: Ordered Problem List Condition Effective Dates Status Health Status Informant Asthma(Confirmed) Active Blindness of right eye(Confirmed) Active Blood group A Rh(D) Active positive(Confirmed) Chest pain(Confirmed) Active IUFD at 20 weeks or more of Active gestation(Confirmed) Depression(Confirmed) Active Diabetes mellitus type 2(Confirmed)1 Active Hypertension(Confirmed) Active Care Coordination [facility], [place] Active Jeanne, CC (Confirmed) delivery(Confirmed) Active delivery(Confirmed) Active 1Not seem at [facility] since 08/12/2016. Multiple no show in our center. She is seen by other provider Dr Matt Gutierrez by pharmacy records. Results Orders for Microbiology Reports Name Date Blood Culture 06/10/21 Blood Culture #2 06/10/21 Blood Culture 06/08/21 Blood Culture #2 06/08/21 Microbiology Reports TEST:Blood Culture STATUS:Auth (Verified) BODY SITE: SOURCE:Blood COLLECTED DATE/TIME:06/10/21 3:13 PMBlood Culture SPECIMEN DESCRIPTION : BLOOD NO SITE SPECIAL REQUESTS : NONE CULTURE : NO GROWTH 5 DAYS. REPORT STATUS : FINAL 06/15/2021TEST:Blood Culture, Second Order STATUS:Auth (Verified) BODY SITE: SOURCE:Blood COLLECTED DATE/TIME:06/10/21 3:13 PMBlood Culture, Second Order SPECIMEN DESCRIPTION : BLOOD NO SITE SPECIAL REQUESTS : NONE CULTURE : NO GROWTH 5 DAYS. REPORT STATUS : FINAL 06/15/2021TEST:Blood Culture, Second Order STATUS:Auth (Verified) BODY SITE: SOURCE:Blood COLLECTED DATE/TIME:06/08/21 10:46 PMBlood Culture, Second Order SPECIMEN DESCRIPTION : BLOOD RT HAND SPECIAL REQUESTS : NONE CULTURE : STAPHYLOCOCCUS AUREUS. FOR SUSCEPTIBILITY RESULT REFER TO BLOOD CULTURE REPORT STATUS : FINAL 06/11/2021TEST:Blood Culture STATUS:Auth (Verified) BODY SITE: SOURCE:Blood COLLECTED DATE/TIME:06/08/21 8:48 PMBlood Culture SPECIMEN DESCRIPTION : BLOOD R ARM SPECIAL REQUESTS : CRITICAL VALUE CALLED AND VERIFIED BY READBACK FOR: GRAM POSITIVE COCCI TO [id number], D6A, ON 06/09/2021 AT 12:25 BY [employer] [id number] CULTURE : STAPHYLOCOCCUS AUREUS. S. aureus was identified by multi-plex PCR. MecA NOT detected. The absence of the mecA gene is associated with susceptibility to methicillin (MSSA). REPORT STATUS : FINAL 06/11/2021 ORGANISM STAPHYLOCOCCUS AUREUS. METHOD MIN. INHIB. CONC. (MCG/ML) CIPROFLOXACIN SUSCEPTIBLE CLINDAMYCIN SUSCEPTIBLE ERYTHROMYCIN SUSCEPTIBLE LEVOFLOXACIN SUSCEPTIBLE OXACILLIN SUSCEPTIBLE PENICILLIN SUSCEPTIBLE RIFAMPIN SUSCEPTIBLE RIFAMPIN RIFAMPIN SHOULD NOT BE USED ALONE FOR ANTIMICROBIAL RIFAMPIN THERAPY. TETRACYCLINE SUSCEPTIBLE TRIMETH/SULFAMETHOX SUSCEPTIBLE VANCOMYCIN SUSCEPTIBLERadiology Reports Exam Date Time Procedure Performing Provider Status 06/09/21 8:33 PM Foot Min 3 Views Right Teresa Vang; Auth ( Verified) Notes:(Foot Min 3 Views Right) Reason For Exam: DFU of right foot;Infection RESULT: Foot Min 3 Views Right Foot Min 3 Views Right, 3 views Reason: Infection; DFU of right foot; Clinical Question(s): Osteomyelitis COMPARISON: None. FINDINGS: Status post transmetatarsal amputation. No erosive findings identified. No gas identified within thesoft tissues. IMPRESSION: No acute abnormality identified. WSN: [id number] Ordering Physician: Tri Reyes Dictated By: Kaveh Chambers MD Dictated Date/Time: 06/09/21 9:44 pm Reviewed By: Kaveh Chambers MD Signed By: Kaveh Chambers MD Signed Date/Time: 06/09/21 9:44 pm Transcribed By: ALEXIS Transcribed Date/Time: 06/09/21 9:43 pm Exam Date Time Procedure Performing Provider Status 06/09/21 6:28 AM Chest Portable Tomás Campo; Auth (Verified) Notes:(Chest Portable) Reason For Exam: Shortness of BreathRESULT: Chest Portable Chest Portable Reason: Shortness of Breath; Clinical Question(s): CHF COMPARISON: Chest radiograph 05/16/2021 FINDINGS: LINES AND TUBES: None. LUNGS AND PLEURA: Clear lungs. Normal pulmonary vascularity. No pleural effusion. No pneumothorax. HEART, MEDIASTINUM AND EVERT: Heart is normal in size. Normal upper mediastinal and hilar contour. BONES AND SOFT TISSUES: No acute abnormality. IMPRESSION: No acute abnormality. I have personally reviewed the images and I agree with this report. WSN: [id number] Ordering Physician: Antoine Cespedes V Dictated By: Angel Christianson DO Dictated Date/Time: 06/09/21 8:26 am Reviewed By: Akil Stern MD Signed By: Akil Stern MD Signed Date/Time: 06/09/21 8:31 am Transcribed By: ALEXIS Transcribed Date/Time: 06/09/21 8:20 am Vital Signs Most recent to oldest 1 2 3 [Reference Range]: Height 167.6 cm 167.6 cm 167.6 cm (06/18/21 8:25 PM) (06/18/21 8:00 AM) (06/17/21 8:1 6 PM) Weight 75.8 kg (06/09/21 11:04 AM) Oxygen Saturation [94-100 %] 100 % 100 % 95 % (06/19/21 8:00 AM) (06/18/21 8:25 PM) (06/18/21 8:0 0 AM) Pulse Rate [55-90 bpm] 85 bpm 85 bpm 86 bpm (06/19/21 9:27 AM) (06/19/21 8:00 AM) (06/18/21 9:3 3 PM) Body Mass Index [18.5-24.99] 26.98 *H* (06/09/21 11:04 AM) Blood Pressure [90-138/55-84 127/100 mm Hg 127/79 mm Hg 127 /79 mm Hg mm Hg] (06/19/21 9:29 AM) (06/19/21 9:27 AM) (06/19/21 8:0 0 AM) Respiratory Rate [16-30 18 br/min 18 br/min 18 br/mi n br/min] (06/19/21 9:29 AM) (06/19/21 8:00 AM) (06/19/21 6:4 6 AM) Temperature [96.8-100.4 DegF] 98.9 DegF 98.1 DegF 98 .5 DegF (06/19/21 8:00 AM) (06/18/21 8:25 PM) (06/18/21 8:0 0 AM) Liters per Minute 0 L/min 0 L/min 0 L/min (06/11/21 8:00 AM) (06/10/21 5:43 AM) (06/09/21 11: 46 PM) Mode of Delivery (Oxygen) Room air Room air Room a ir (06/19/21 8:00 AM) (06/18/21 8:25 PM) (06/18/21 8:0 0 AM) Blood pressure sites Arm, left Arm, left Arm, left (06/19/21 8:00 AM) (06/18/21 8:25 PM) (06/17/21 8:1 6 PM) Temperature Route Oral Oral Oral (06/19/21 8:00 AM) (06/18/21 8:25 PM) (06/18/21 8:0 0 AM) Dry Weight 75.8 kg (06/09/21 11:04 AM) Social History Social History Type Response Smoking Status Never (less than 100 in life time) entered on: 04/23/21 Sex
--- OUTSIDE RECORDS SUMMARY | 2022-03-31 18:22 | XMS_ITS | Continuity of Care Document ---
:1990 Author Organization [facility] Address [address] [place] [address]- Care Team Providers Name Role Phone Abdon Beard MD Primary Care Physician [facility]counter [facility] Date(s): 04/01/21 - 05/01/21 [facility] [address] [place] [address]- Allergies, Adverse Reactions, Alerts Substance Reaction Severity [...] '943Admin Note: TD4 Admin Note: unknown exact [id number] Note: unknown exact date Medications amLODIPine 10 mg oral tablet 10 mg, 1, tablet, By Mouth, Daily, # 30 tablet, Refills 5, Tot. Refills 5, Maintenance, 03/31/21 14:26:00 EST, Route to Pharmacy Electronically, [facility] #[id number], Partial fill upon patient request ifthe prescription is for a schedule II opioid drug... Start Date: 03/31/21 Status: Orderedatorvastatin 40 mg oral tablet 1 tablet = 40 mg, By Mouth, Daily at bedtime, Follow-up with your primary care doctor for further refills., # 30 tablet, 1 Refills, Maintenance, 04/26/21 14:51:00 EST, Tablet, [facility],Partial fill upon patient request if the prescrip... Start Date: 04/26/21 Status: Ordereddoxycycline monohydrate 100 mg oral capsule = 100 mg, By Mouth, Daily at bedtime, Take with fluids. May take with food to minimize abdominal discomfort. Take at bedtime or 6 hours after iron tablet., # 30 each, 0 Refills, Maintenance, 04/27/21 7:07:00 EST, Capsule, [facility], Par... Start [...] 3 Refills, Maintenance, 11/17/20 10:19:00 EDT, Tablet, [facility]acy #[id number], Partial fillupon patient request if the prescription is for a... Start Date: 11/17/20 Status: OrderedLasix 20 mg oral tablet 20 mg, 1, tablet, By Mouth, Daily, Follow-up with your primary care doctor for further refills., # 30 tablet, Refills 0, Tot. Refills 0, Maintenance, 04/26/21 14:52:00 EST, Route to Pharmacy Electronically, [facility], Partial fill upon... Start Date: 04/26/21 Status: OrderedLevemir FlexTouch 100 units/mL subcutaneous solution INJECT 43 UNITS SUBCUTANEOUSLY ONCE DAILY Start Date: 04/23/21 Status: Orderedlidocaine 5% topical film 1 patch, Topically, Daily, PRN Pain , Mild, remove after 12 hours, # 13 each, 0 Refills, Maintenance, 04/19/21 11:26:00 EST, Film, [facility]/pharmacy #[id number], Partial fill upon [...] 04/26/21 14:52:00 EST, Route to Pharmacy Electronically, [facility], Partial fi... Start Date: 04/26/21 Status: Orderednitroglycerin 0.4 mg sublingual tablet 1 tablet = 0.4 mg, Sublingual, Every 5 minutes, PRN as needed for chest pain, not to exceed 3 doses/15 min--if pain persists, seek medical attention, # 25 tablet, 0 Refills, Maintenance, 03/31/21 14:26:00 EST, Tablet, [facility]/pharmacy #[id number], Partial fill... Start Date: 03/31/21 Status: [...] type 2(Confirmed)1 Active Hypertension(Confirmed) Active Care Coordination [facility], [place] Active Jeanne, CC (Confirmed) delivery(Confirmed) Active delivery(Confirmed) Active 1Not seem at [facility] since 08/12/2016. Multiple no show in our center. She is seen by other provider Dr Matt Gutierrez by pharmacy records. Social History Social History Type Response Smoking Status Never (less than 100 in life time) entered on: 04/23/21 Sex
--- OUTSIDE RECORDS SUMMARY | 2022-03-31 18:22 | XMS_ITS | Continuity of Care Document ---
:1990 Author Organization [facility] Address [address] [place] [address]- Care Team Providers Name Role Phone Chirag CARLSON, Abdon Primary Care Physician Encounter [facility] Date(s): 04/23/21 - 04/27/[address] [address]- Discharge Disposition: A-D/C Home Attending Physician: Lucian DONG, Reham Admitting Physician: Jonas CARLSON, Maureen Tony Referring Physician: Not on Staff, Referring MD [...] '943Admin Note: TD4 Admin Note: unknown exact [id number] Note: unknown exact date Medications amLODIPine 10 mg oral tablet 10 mg, 1, tablet, By Mouth, Daily, # 30 tablet, Refills 5, Tot. Refills 5, Maintenance, 03/31/21 14:26:00 EST, Route to Pharmacy Electronically, [facility]/pharmacy #[id number], Partial fill upon patient request ifthe prescription is for a schedule II opioid drug... Start Date: 03/31/21 Status: OrderedamLODIPine 10 mg oral tablet 10 mg, Tablet, By Mouth, 04/27/21 9:00:00 EST Start Date: 04/27/21 Stop Date: 04/27/21 Status: Completedatorvastatin 40 mg oral tablet 1 tablet = 40 mg, By Mouth, Daily at bedtime, Follow-up with your primary care doctor for further refills., # 30 tablet, 1 Refills, Maintenance, 04/26/21 14:51:00 EST, Tablet, [facility],Partial fill upon patient request if the prescrip... Start Date: 04/26/21 Status: OrderedDilaudid Inj 1 mg, Injection, IV Push Slowly, Every 4 hours, PRN for Pain , Severe, Routine, 04/23/21 15:22:00 EST Start Date: 04/23/21 Stop Date: 04/27/21 Status: Discontinueddoxycycline monohydrate 100 mg oral capsule = 100 mg, By Mouth, Daily at bedtime, Take with fluids. May take with food to minimize abdominal discomfort. Take at bedtime or 6 hours after iron tablet., # 30 each, 0 Refills, Maintenance, 04/27/21 7:07:00 EST, Capsule, [facility], Par... Start Date: 04/27/21 Status: [...] 3 Refills, Maintenance, 11/17/20 10:19:00 EDT, Tablet, [facility]/pharmacy #[id number], Partial fillupon patient request if the prescription is for a... Start Date: 11/17/20 Status: OrderedLasix 20 mg oral tablet 20 mg, 1, tablet, By Mouth, Daily, Follow-up with your primary care doctor for further refills., # 30 tablet, Refills 0, Tot. Refills 0, Maintenance, 04/26/21 14:52:00 EST, Route to Pharmacy Electronically, [facility], Partial fill upon... Start Date: 04/26/21 Status: OrderedLevemir FlexTouch 100 units/mL subcutaneous solution INJECT 43 UNITS SUBCUTANEOUSLY ONCE DAILY Start Date: 04/23/21 Status: Orderedlidocaine 5% topical film 1 patch, Topically, Daily, PRN Pain , Mild, remove after 12 hours, # 13 each, 0 Refills, Maintenance, 04/19/21 11:26:00 EST, Film, [facility]/pharmacy #[id number], Partial fill upon patient request if the prescription is for a schedule II opioid drug., 1 patch Top... Start Date: 04/19/21 Status: Orderedmetoprolol 25 mg oral tablet 25 mg, 1, tablet, By Mouth, 2 times a day, Follow-up with your primary care doctor for further refills., # 60 tablet, Refills 1, Tot. Refills 1, Maintenance, 04/26/21 14:52:00 EST, Route to Pharmacy Electronically, [facility], Partial fi... Start Date: 04/26/21 Status: Orderedmetoprolol 25 mg oral tablet 25 mg, Tablet, By Mouth, 04/27/21 9:00:00 EST Start Date: 04/27/21 Stop Date: 04/27/21 Status: Completednitroglycerin 0.4 mg sublingual tablet 1 tablet = [...] 2(Confirmed)1 Active Hypertension(Confirmed) Active Care Coordination [facility], [place] Active Angel, CC (Confirmed) delivery(Confirmed) Active delivery(Confirmed) Active 1Not seem at [facility] since 08/12/2016. Multiple no show in our center. She is seen by other provider Dr Matt Gutierrez by pharmacy records. Results Radiology Reports Exam Date Time Procedure Performing Provider Status 04/23/21 2:02 AM Chest 2 Views Frontal and Lat Nancy Krishna; Au th (Verified) Notes:(Chest 2 Views Frontal and Lat) Reason For Exam: Chest Pain;Other:RESULT: Chest 2 Views Frontal and Lat PA and lateral chest dated April 23, 2021. Comparison films are from April 20 and March. HISTORY: Chest pain. FINDINGS: This examination shows the cardiac silhouette to be at the upper limits of normal for sizeand unchanged. Mild central pulmonary vascular prominence is noted. Some very minimal thickening of the minor fissure and major fissures are noted. No airspace consolidation is appreciated. There is some minimal blunting of the posterior costophrenic sulci consistent with minimal effusions. Degenerative changes are noted in the spine. IMPRESSION: Minimal volume overload with very minimal early effusions. No evidence of pneumonia. Examination [id number]. Thank you for allowing me to participate in the care of this patient. WSN: [id number] Ordering Physician: Damon Bowden Dictated By: Kareem Ackerman MD Dictated Date/Time: 04/23/21 9:23 am Reviewed By: Kareem Ackerman MD Signed By: Kareem Ackerman MD Signed Date/Time: 04/23/21 9:23 am Transcribed By: ALEXIS Transcribed Date/Time: 04/23/21 9:23 am Vital Signs Most recent to oldest 1 2 3 [Reference Range]: Height 167 cm 167 cm 167 cm (04/27/21 8:00 AM) (04/27/21 3:05 AM) (04/26/21 7:36 P M) Weight 81.3 kg 82.1 kg 82.4 kg (04/25/21 5:57 AM) (04/24/21 7:03 AM) (04/23/21 8:5 4 PM) Oxygen Saturation [94-100 100 % 99 % 100 % %] (04/27/21 8:00 AM) (04/27/21 3:05 AM) (04/26/21 7:36 P M) Pulse Rate [55-90 bpm] 86 bpm 86 bpm 87 bpm (04/27/21 9:40 AM) (04/27/21 8:00 AM) (04/27/21 3:05 A M) Body Mass Index 29.55 [18.5-24.99] *H* (04/23/21 8:54 PM) Blood Pressure 129/83 mm Hg 129/83 mm Hg 129/83 mm Hg [90-138/55-84 mm Hg] (04/27/21 9:40 AM) (04/27/21 9:40 AM) (04/27/21 8 :00 AM) Respiratory Rate [16-30 18 br/min 20 br/min 18 br/mi n br/min] (04/27/21 9:42 AM) (04/27/21 8:00 AM) (04/27/21 4:20 A M) Temperature [96.8-100.4 98.6 DegF 97.6 DegF 98 DegF DegF] (04/27/21 8:00 AM) (04/27/21 3:05 AM) (04/26/21 7:36 P M) Mode of Delivery (Oxygen) Room air Room air Room a ir (04/27/21 8:00 AM) (04/27/21 3:05 AM) (04/26/21 7:36 P M) Blood pressure sites Arm, right Arm, right Arm, right (04/27/21 8:00 AM) (04/27/21 3:05 AM) (04/26/21 7:36 P M) Temperature Route Oral Temporal Temporal (04/27/21 8:00 AM) (04/27/21 3:05 AM) (04/26/21 7:36 P M) Dry Weight 100 kg (04/23/21 8:54 PM) Weight Obtained Via Bed scale Bed scale Bed scale (04/25/21 5:57 AM) (04/24/21 7:03 AM) (04/23/21 8:5 4 PM) Dry Weight Obtained Via Patient/family stated (04/23/21 8:54 PM) Social History Social History Type Response Smoking Status Never (less than 100 in life time) entered on: 04/23/21 Sex
--- OUTSIDE RECORDS SUMMARY | 2022-03-31 18:22 | XMS_ITS | Continuity of Care Document ---
:1990 Author Organization [facility] Address [address] [place] [address]- Care Team Providers Name Role Phone Abdon Beard MD Primary Care Physician [place] [facility] Date(s[place] 07/18/21 - 07/18/[address] [address]- Discharge Disposition: A-D/C Walkout Attending Physician: Not [...] '[id number] Note: TD4 Admin Note: unknown exact [id number] Note: unknown exact date Medications acetaminophen 325 [...] 06/18/21 9:46:00 EDT, Route to Pharmacy Electronically, [facility], Partial fill upon patient request if the prescription is for a schedule II opioid... Start Date: 06/18/21 Status: Orderedatorvastatin 40 mg oral tablet 1 tablet = 40 mg, By Mouth, Daily at bedtime, Follow-up with your primary care doctor for further refills., # 30 tablet, 1 Refills, Maintenance, 06/18/21 9:46:00 EDT, Tablet, [facility], Partial fill upon patient request if the prescript... Start Date: 06/18/21 Status: Orderedcephalexin monohydrate 500 mg oral capsule 1 capsule = 500 mg, By Mouth, Every 6 hours, for 14 days, # 56 capsule, 0 Refills, Acute 07/28/21 16:28:00 EDT, 07/14/21 16:28:00 EDT, Capsule, [facility]/pharmacy #[id number], Partial fill upon patient request if the prescription is for a schedule II opioid drug.... Start Date: 07/14/21 Stop Date: 07/28/21 Status: Orderedduloxetine 30 mg oral enteric coated capsule 1 capsule = 30 mg, By Mouth, 2 times a day, # 60 capsule, 0 Refills, Maintenance, 06/18/21 9:46:00 EDT, Capsule, [facility], Partial fill upon [...] Maintenance, 11/17/20 10:19:00 EDT, Tablet, [facility]/pharmacy #[id number], Partial fillupon patient request if the prescription is for a... Start Date: 11/17/20 Status: OrderedLasix 20 mg oral tablet 20 mg, 1, tablet, By Mouth, Every other day, Follow-up with your primary care doctor for further refills., # 30 tablet, Refills 0, Tot. Refills 0, Maintenance, 07/14/21 16:27:00 EDT, Route to Pharmacy Electronically, [facility]/pharmacy #[id number], Partial fill u... Start Date: 07/14/21 Status: OrderedLevemir FlexTouch 100 units/mL subcutaneous solution = 8 units, Subcutaneous Injection, Daily at bedtime, # 10 mL, 0 Refills, Maintenance, 06/19/21 9:20:00 EDT, Injection, [facility], Partial fill upon patient request if the prescription isfor a schedule II opioid drug., 167.6, cm, ... Start Date: 06/19/21 Stop Date: 07/19/21 Status: Orderedlidocaine 5% topical film 1 patch, Topically, Daily, PRN Pain , Mild, remove after 12 hours, # 13 each, 0 Refills, Maintenance, 04/19/21 11:26:00 EST, Film, [facility]/pharmacy #[id number], Partial fill upon patient request if the prescription is for a schedule II opioid drug., 1 patch Top... Start Date: 04/19/21 Status: Orderedlisinopril 5 mg oral tablet 5 mg, 1, tablet, By Mouth, Daily, # 30 tablet, Refills 0, Tot. Refills 0, Maintenance, 07/14/21 16:28:00 EDT, Route to Pharmacy Electronically, [facility]/pharmacy #[id number], Partial fill upon patient request [...] 0 Refills, Maintenance, 03/31/21 14:26:00 EST, Tablet, [facility]/pharmacy #[id number], Partial fill... Start Date: 03/31/21 Status: OrderedoxyCODONE 5 mg oral tablet 5 mg, 1, tablet, By Mouth, Every 6 hours, PRN, Refills 0, Tot. Refills 0, Pain , Severe Start Date: 06/09/21 Status: OrderedPen [place], 30 G x 8 mm BD Ultra [...] type 2(Confirmed)1 Active Hypertension(Confirmed) Active Care Coordination [facility], [place] Active Angel, CC (Confirmed) delivery(Confirmed) Active delivery(Confirmed) Active 1Not seem at [facility] since 08/12/2016. Multiple no show in our center. She is seen by other provider Dr Matt Gutierrez by pharmacy records. Vital Signs Most recent to oldest [Reference Range]: 1 Oxygen Saturation [94-100 %] 100 % (07/18/21 1:17 AM) Pulse Rate [55-90 bpm] 105 bpm *H* (07/18/21 1:17 AM) Blood Pressure [90-138/55-84 mm Hg] 147/99 mm Hg *H* (07/18/21 1:17 AM) Respiratory Rate [16-30 br/min] 18 br/min (07/18/21 1:17 AM) Temperature [96.8-100.4 DegF] 98.0 DegF (07/18/21 1:17 AM) Mode of Delivery (Oxygen) Room air (07/18/21 1:17 AM) Blood pressure sites Arm, right (07/18/21 1:17 AM) Temperature Route Oral (07/18/21 1:17 AM) Social History Social History Type Response Smoking Status Never (less than 100 in life time) entered on: 04/23/21 Sex
--- OUTSIDE RECORDS SUMMARY | 2022-03-31 18:22 | XMS_ITS | Continuity of Care Document ---
:1990 Author Organization [facility] Address [address] [place] [id number]- Care Team Providers Name Role Phone Abdon Beard MD Primary Care Physician Encounter [facility] Date(s): 10/03/21 - 11/02/21 [facility] [address] [place] [id number] Allergies, Adverse Reactions, Alerts Substance Reaction [...] '[id number] Note: TD4 Admin Note: unknown exact [id number] Note: unknown exact date Medications Alcohol Pads [...] 08/24/21 11:43:00 EDT, Route to Pharmacy Electronically, [facility]/pharmacy #[id number], Partial fill upon patient request ifthe prescription is for a schedule II opioid drug... Start Date: 08/24/21 Status: Orderedaspirin 81 mg oral delayed release tablet 2 tablet = 162 mg, By Mouth, Daily, # 90 tablet, 3 Refills, Maintenance, 10/05/21 12:28:00 EDT, CR Tablet, [facility]/pharmacy #[id number], Partial fill upon patient request [...] 08/24/21 11:44:00 EDT, Route to Pharmacy Electronically, [facility]/pharmacy #[id number], Partial fill u... Start Date: 08/24/21 Status: OrderedLevemir FlexTouch 100 units/mL subcutaneous solution = 10 units, Subcutaneous Injection, Daily at bedtime, # 15 mL, 0 Refills, Maintenance, 08/24/21 11:26:00 EDT, Injection, [facility]/pharmacy #[id number], Partial fill upon patient request if the prescription is fora schedule II opioid drug., 168, cm, 08/24/21 10:... Start Date: 08/24/21 Stop Date: 09/23/21 Status: OrderedMetoprolol Tartrate 25 mg oral tablet 2 tablet = 50 mg, By Mouth, 2 times a day, # 120 each, 4 Refills, Maintenance, 09/07/21 18:00:00 EDT, Tablet, [facility]/pharmacy #[id number], Partial fill upon patient request if the prescription is for a scheduleII opioid drug., 168, cm, 09/07/21 10:41:00 EDT,... Start Date: 09/07/21 Status: Orderednitrofurantoin macrocrystals 100 mg oral capsule See Instructions, 1 capsule By Mouth twice daily x 7 days, # 14 each, 0 Refills, Acute 11/26/21 15:27:00 EDT, 10/28/21 15:26:00 EDT, [facility]/pharmacy #[id number], Partial fill upon patient request [...] Dry Weight Start Date: 08/24/21 Status: OrderedPen [place], 30 G x 8 mm BD Ultra [...] Refills, Maintenance, 08/24/21 11:27:00 EDT, Chew Tablet, [facility]/pharmacy #[id number], Partial fill upon patient request if the prescription is for a schedule II opioid drug., 1 tablet Chew Daily, 168, cm, 08/24/21 10:36:0... Start Date: 08/24/21 Status: OrderedProAir HFA 90 mcg/inh inhalation aerosol See Instructions, PRN Wheezing/Shortness of Breath, Inhale 2 puff every 4 to 6 hours as needed, # 18Gm, 0 Refills, Maintenance, 08/24/21 11:43:00 EDT, Inhaler, [facility]/pharmacy #[id number], Partial fill upon patient request [...] Active Obese class I(Confirmed) Active Care Coordination [facility], [place] Active Jeanne, CC (Confirmed) Pre-existing diabetes mellitus Active affecting , antepartum(Confirmed) Poor vision(Confirmed)6 Active 1Managed by PCP. WEll controlled.2Self-manages. States currently stable. No medications.3Not seem at [facility] since 08/12/2016. Multiple no show in our center. She is seen by other provider Dr Matt Gutierrez by pharmacy records.4Managed by [id number] by PCP with [id number], states sees shadows and has blurry vision. Last eye doctor appointment was several years ago. Social History Social History Type Response Smoking Status Never (less than 100 in life time) entered on: 08/22/21 Sex Care Team PersonnelName: Abdon Beard MD Address: [address] [place] [address]
--- OUTSIDE RECORDS SUMMARY | 2022-03-31 18:22 | XMS_ITS | Continuity of Care Document ---
:1990 Author Organization [facility] Address [address] [place] [id number]- Care Team Providers Name Role Phone Not on Staff, PCP Primary Care Physician Unavailable Encounter [facility] Date(s): 04/07/20 - 05/07/20 [facility] [address] [place] [id number]- Attending Physician: Michael Marquez Admitting Physician: Michael [...] '943Admin Note: TD4 Admin Note: unknown exact [id number] Note: unknown exact date Medications aspirin 81 mg oral delayed release tablet 162 mg, 2, tablet, By Mouth, Daily, To begin taking at 12 weeks gestational age - Approx. Apr 14 2020, # 30 tablet, Refills 0, Tot. Refills 0, Maintenance, 03/05/20 14:49:00 EST, Route to Pharmacy Electronically, [facility]/pharmacy #[id number], Partial fill upo... Start Date: 03/05/20 Status: Orderedbedside commode bedside commode, See Instructions, # 1 each, Refills 0, Tot. Refills 0, Maintenance, DX DM E 11.9 using at bedside, 11/14/17 17:17:55 EDT, Compound Start Date: 11/14/17 Status: OrderedDEXCOM G6 SURG RN DEXCOM G6 SURG RN, See Instructions, # 1 each, Refills 0, Tot. Refills 0, Maintenance, Use to monitor blood lgucose levels [facility]: [id number] E10.9, 04/06/20 12:07:00 EST, Supply, 170, cm, 03/05/20 14:05:00 EST, Height, 82, kg, 03/05/20 14:53:00... Start Date: 04/06/20 Status: OrderedDEXCOM G6 SENSOR, 3 PACK DEXCOM G6 SENSOR, 3 PACK, See Instructions, # 3 each, Refills 3, Tot. Refills 3, Maintenance, Use tomonitor blood sugar. E10.9 [facility] [id number], 04/06/20 12:07:00 EST, Supply, 170, cm, 03/05/20 14:05:00 EST, Height, 82, kg, 03/05/20 14:53:00 EST... Start Date: 04/06/20 Status: OrderedDEXCOM G6 TRANSMITTER DEXCOM G6 TRANSMITTER, See Instructions, # 2 each, Refills 3, Tot. Refills 3, Maintenance, DEXCOM [id number], 04/06/20 12:07:00 EST, Supply, 170, cm, 03/05/20 [...] 03/05/20 14:48:00 EST, Route to Pharmacy Electronically, [facility]/pharmacy #[id number], Partial fill upon patient request if the prescription is for a s... Start Date: 03/05/20 Status: OrderedNovoLOG FlexPen 100 units/mL subcutaneous solution See Instructions, Max daily dose 50 units, per sliding scale. E11.65, # 30 mL, 5 Refills, Maintenance, 02/05/20 14:37:00 EST, Solution, [facility]/pharmacy #[id number], Partial fill upon patient request if the prescription is for a schedule II opioid drug., 170, c... Start Date: 02/05/20 Status: OrderedPrenatal Multivitamins with Folic Acid 1 mg oral tablet 1 tablet, By Mouth, Daily, # 90 tablet, 2 Refills, Maintenance, 03/05/20 14:51:00 EST, Tablet, [facility]/pharmacy #[id number], Partial fill upon patient request if the prescription is for a schedule II opioid drug., 1 tablet By Mouth Daily, 170, cm, 01/08/20 13:3... Start Date: 03/05/20 Status: OrderedTrulicity Pen 1.5 mg/0.5 mL subcutaneous solution 0.5 mL = 1.5 mg, Subcutaneous Injection, Every week, Take 1.5mg once weekly. E11.65, # 2.5 mL, 5 Refills, Maintenance, 04/22/20 16:38:00 EST, Solution, [facility]/pharmacy #[id number], Partial fill upon patient [...] type 2(Confirmed)1 Active Hypertension(Confirmed) Active Care Coordination [facility] GONZALE[facility] CC (Confirmed) delivery(Confirmed) Active delivery(Confirmed) Active 1Not seem at [facility] since 08/12/2016. Multiple no show in our center. She is seen by other provider Dr Matt Gutierrez by pharmacy records. Social History Social History Type Response Smoking Status Never smoker entered on: 03/28/17 Sex
--- OUTSIDE RECORDS SUMMARY | 2022-03-31 18:22 | XMS_ITS | Continuity of Care Document ---
:1990 Author Organization [facility] Address [address] [place] [id number]- Care Team Providers Name Role Phone Abdon Beard MD Primary Care Physician Encounter [facility] Date(s): 03/28/21 - 03/29/[address] [address]- Encounter Diagnosis Depressed (Final) - 03/29/21 Discharge Disposition: A-D/C Home Attending Physician: Chaparro Back MD Admitting Physician: Chaparro Back MD Referring Physician: Not on Staff, Referring [...] '943Admin Note: TD4 Admin Note: unknown exact [id number] Note: unknown exact date Medications amLODIPine 10 [...] 06/10/21 15:59:00 EDT, 02/28/21 15:59:00 EST, Capsule, [facility], Partial fill upon patient request... Start Date: 02/28/21 Stop Date: 06/10/21 Status: Ordereddiclofenac 1% topical gel = 2 Gm, Topically, 4 times a day, # 112 Gm, 0 Refills, Maintenance, 02/05/21 12:34:00 EST, Gel, [facility], Partial fill upon patient request if the prescription is for a schedule II opioid drug., 170, cm, 03/05/20 14:05:00 EST, Height,... Start Date: 02/05/21 Stop Date: 02/19/21 Status: Ordereddoxycycline monohydrate 100 mg oral tablet = 100 mg, By Mouth, Daily at bedtime, Chronic suppressive therapy. Take daily at bedtime or 6 hours after iron tablet, # 30 tablet, 1 Refills, Maintenance, 03/26/21 16:17:00 EST, Tablet, [facility]/pharmacy #[id number], Partial fill upon patient request if the [...] See Instructions, Take 40 units once daily. E11.65. 90-day supply., # 45 mL, 3 Refills, Maintenance,11/17/20 10:20:00 EDT, [facility]/pharmacy [facility][id number], Stop Lantus. Start Levemir., 170, cm, 03/05/20 14:05:00 EST, Height, 82, kg, 03/05/20 14:53:00 EST, Dry Weight Start Date: 11/17/20 Status: Orderedmetoprolol 25 mg oral tablet 25 mg, Tablet, By Mouth, 03/29/21 9:00:00 EST Start Date: 03/29/21 Stop Date: 03/29/21 Status: CompletedMetoprolol Tartrate 25 mg oral tablet 1 tablet [...] hours, PRN for Pain , Moderate, Routine, 03/28/21 20:51:00 EST Start Date: 03/28/21 Stop Date: 04/04/21 Status: OrderedoxyCODONE 5 mg oral tablet 5 [...] Active Obese class I(Confirmed) Active Care Coordination [facility], [place]akan Active Angel, CC (Confirmed) delivery(Confirmed) Active delivery(Confirmed) Active 1Not seem at [facility] since 08/12/2016. Multiple no show in our center. She is seen by other provider Dr Matt Gutierrez by pharmacy records. Results Radiology Reports Exam Date Time Procedure Performing Provider Status 03/28/21 6:08 PM Chest 2 Views Frontal and Lat Teresa Vang; Auth (Verified) Notes:(Chest 2 Views Frontal and Lat) Reason For Exam: Shortness of Breath RESULT: Chest 2 Views Frontal and Lat Chest 2 Views Frontal and Lat Hx of Present Illness: chest pain, recently left AMA; Reason: Shortness of Breath; Clinical Question(s): CHF COMPARISON: 03/16/2021 FINDINGS: LINES AND TUBES: None. LUNGS AND PLEURA: Clear lungs. Normal pulmonary vascularity. No pleural effusion. No pneumothorax. HEART, MEDIASTINUM AND EVERT: Heart is normal in size. Normal upper mediastinal and hilar contour. BONES AND SOFT TISSUES: No acute abnormality. IMPRESSION: No acute abnormality. WSN: [id number] Ordering Physician: Barbi Austin Dictated By: Kaveh Chambers MD Dictated Date/Time: 03/28/21 6:09 pm Reviewed By: Kaveh Chambers MD Signed By: Kaveh Chambers MD Signed Date/Time: 03/28/21 6:09 pm Transcribed By: ALEXIS Transcribed Date/Time: 03/28/21 6:08 pm Vital Signs Most recent to oldest 1 2 3 [Reference Range]: Weight 81 kg 81 kg 81 kg (03/29/21 10:41 AM) (03/29/21 5:21 AM) (03/29/21 5:17 AM) Oxygen Saturation [94-100 98 % 97 % 100 % %] (03/29/21 10:41 AM) (03/29/21 5:17 AM) (03/29/21 3:21 AM) Pulse Rate [55-90 bpm] 91 bpm 98 bpm 90 bpm *H* *H* (03/29/21 5:17 AM) (03/29/21 10:41 AM) (03/29/21 9:30 AM) Blood Pressure 174/94 mm Hg 149/97 mm Hg 168/93 mm Hg [90-138/55-84 mm Hg] *H* *H* *H* (03/29/21 10:41 AM) (03/29/21 9:30 AM) (03/29/21 5:21 AM) Respiratory Rate [16-30 18 br/min 18 br/min 20 br/mi n br/min] (03/29/21 12:28 PM) (03/29/21 10:41 AM) (03/29/21 3:21 AM) Temperature [96.8-100.4 98.0 DegF 98.3 DegF 98.6 Deg F DegF] (03/29/21 10:41 AM) (03/29/21 5:17 AM) (03/28/21 8:28 PM) Mode of Delivery (Oxygen) Room air Room air Room a ir (03/29/21 10:41 AM) (03/29/21 5:17 AM) (03/29/21 3:21 AM) Blood pressure sites Arm, left Arm, left Arm, left (03/29/21 5:21 AM) (03/29/21 5:17 AM) (03/28/21 8:28 PM) Temperature Route Oral Oral Oral (03/29/21 10:41 AM) (03/29/21 5:17 AM) (03/28/21 8:28 PM) Weight Obtained Via Patient/family stated (03/28/21 5:21 PM) Social History Social History Type Response Smoking Status Never smoker entered on: 03/28/17 Sex
--- OUTSIDE RECORDS SUMMARY | 2022-03-31 18:22 | XMS_ITS | Continuity of Care Document ---
:1990 Author Organization [facility] Address [address] [place] [address]- Care Team Providers Name Role Phone Abdon Beard MD Primary Care Physician Encounter [facility] Date(s): 07/26/21 - 08/25/[address] [address] Allergies, Adverse Reactions, Alerts Substance [...] '943Admin Note: TD4 Admin Note: unknown exact [id number] Note: unknown exact date Medications acetaminophen 325 [...] 08/24/21 11:43:00 EDT, Route to Pharmacy Electronically, [facility]/pharmacy #[id number], Partial fill upon patient request ifthe prescription is for a schedule II opioid drug... Start Date: 08/24/21 Status: Orderedduloxetine 30 mg oral enteric coated capsule 1 capsule = 30 mg, By Mouth, 2 times a day, # 180 capsule, 3 Refills, Maintenance, 08/24/21 11:44:00EDT, Capsule, [facility]/pharmacy #[id number], Partial fill upon patient request [...] 08/24/21 11:44:00 EDT, Route to Pharmacy Electronically, [facility]/pharmacy #[id number], Partial fill u... Start Date: 08/24/21 Status: OrderedLevemir FlexTouch 100 units/mL subcutaneous solution = 8 units, Subcutaneous Injection, Daily at bedtime, # 10 mL, 0 Refills, Maintenance, 08/24/21 11:26:00 EDT, Injection, [facility]/pharmacy #[id number], Partial fill upon patient request if the prescription is for a schedule II opioid drug., 168, cm, 08/24/21 10:3... Start Date: 08/24/21 Stop Date: 09/23/21 Status: OrderedMetoprolol Tartrate 25 mg oral tablet 1.5 tablet = 37.5 mg, By Mouth, 2 times a day, # 90 tablet, 3 Refills, Maintenance, 08/24/21 11:44:00 EDT, Tablet, [facility]/pharmacy #[id number], Partial fill upon patient request [...] Dry Weight Start Date: 08/24/21 Status: OrderedPen [place], 30 G x 8 mm BD Ultra [...] Refills, Maintenance, 08/24/21 11:27:00 EDT, Chew Tablet, [facility]/pharmacy #[id number], Partial fill upon patient request if the [...] Active Obese class I(Confirmed) Active Care Coordination [facility], [place] Active Angel, CC (Confirmed) Pre-existing diabetes mellitus Active affecting , antepartum(Confirmed) Poor vision(Confirmed)6 Active 1Managed by PCP. WEll controlled.2Self-manages. States currently stable. No medications.3Not seem at [facility] since 08/12/2016. Multiple no show in our center. She is seen by other provider Dr Matt Gutierrez by pharmacy records.4Managed by [id number] by PCP with [id number], states sees shadows and has blurry vision. Last eye doctor appointment was several years ago. Social History Social History Type Response Smoking Status Never (less than 100 in life time) entered on: 08/22/21 Sex
--- OUTSIDE RECORDS SUMMARY | 2022-03-31 18:22 | XMS_ITS | Continuity of Care Document ---
:1990 Author Organization [facility] Address [address] [place] [address]- Care Team Providers Name Role Phone Chirag CARLSON, Abdon Primary Care Physician Encounter [facility] Date(s): 03/17/22 - 03/18/[address] [address]- Encounter Diagnosis Flank pain (Final) - 03/17/22 Discharge Disposition: A-D/C Home Attending Physician: Jose Luis CARLSON, Rosemarie Clemente Admitting Physician: Rosemarie Amaya MD Referring Physician: Not on Staff, Referring [...] '943Admin Note: TD4 Admin Note: unknown exact [id number] Note: unknown exact date Medications Aspirin Low [...] 03/10/22 13:14:00 EST, Route to Pharmacy Electronically, [facility], Partial fill upon patient request if the prescription is for a schedul... Start Date: 03/10/22 Status: OrderedCrestor 5 mg oral tablet 1 tablet = 5 mg, By Mouth, Daily, # 30 tablet, 0 Refills, Maintenance, 01/19/22 13:30:00 EST, Tablet, [facility]/pharmacy #[id number], Partial fill upon patient request if the [...] Gm, 0 Refills, Maintenance, 03/10/22 13:15:00 EST, [place],[facility], Partial fill upon patient request if the prescription is for a schedule IIopioid drug., 1 sprays Nares, Both 2 times a day,... Start Date: 03/10/22 Status: OrderedLevemir FlexTouch 100 units/mL subcutaneous solution = 8 units, Subcutaneous Injection, Daily at bedtime, (NOT TAKING & HASN'T IN MONTHS), # 10 mL, 0Refills, Maintenance, 03/10/22 13:13:00 EST, Injection, [facility] [facility], Partial fill upon patient request if the prescription is for a schedule... Start Date: 03/10/22 Status: Orderedmetoclopramide 5 mg oral tablet 1 tablet = 5 mg, By Mouth, Every 6 hours, PRN Nausea & Vomiting, for 14 days, # 56 tablet, 0 Refills, Acute 03/24/22 13:15:00 EST, 03/10/22 13:15:00 EST, Tablet, [facility] [facility], Partial fill upon patient request if the prescription is for a... Start Date: 03/10/22 Stop Date: 03/24/22 Status: OrderedNIFEdipine 30 mg oral tablet, extended release 30 mg, 1, tablet, By Mouth, Daily, # 30 tablet, Refills 0, Tot. Refills 0, Maintenance, 03/10/22 13:15:00 EST, Route to Pharmacy Electronically, [facility], Partial fill upon patient request if the prescription is for a schedule II opioi... Start Date: 03/10/22 Stop Date: 04/09/22 Status: OrderedNovoLOG FlexPen 100 units/mL injectable solution 11-12 UNITS, Subcutaneous Injection, 3 times a day before meals, (NOT TAKING & HASN'T IN MONTHS), # 10 mL, 0 Refills, Maintenance, 03/10/22 13:12:00 EST, Injection, [facility], Partial fill upon patient request if the prescription is for... Start Date: 03/10/22 Status: Orderedondansetron 4 mg oral tablet 1 tablet = 4 mg, By Mouth, Every 8 hours, PRN Nausea & Vomiting, # 12 tablet, 0 Refills, Maintenance, 03/10/22 13:16:00 EST, Tablet, [facility], Partial fill upon patient [...] Dry Weight Start Date: 03/10/22 Status: OrderedPen [place], 31 G x 5 mm BD Ultra [...] each, 0 Refills, Maintenance, 03/10/22 13:17:00 EST, [facility], Partial fill upon patient request if the prescription is for a schedule II opioid drug., 1 film Topically Every 72 hours, 170, cm, 01... Start Date: 03/10/22 Status: Orderedtorsemide 20 mg oral tablet 1 tablet = 20 mg, By Mouth, Daily, # 30 tablet, 0 Refills, Maintenance, 03/10/22 13:14:00 EST, Tablet, [facility], Partial fill upon patient [...] Migraine5 Confirmed Active Care Coordination Confirmed Active [facility], Hakan Angel, CC 1Managed by PCP. WEll controlled.2Self-manages. States currently stable. No medications.3Not seem at [facility] since 08/12/2016. Multiple no show in our center. She is seen by other provider Dr Matt Gutierrez by pharmacy records.4Managed by [id number] by PCP with Tylenol Results Radiology Reports Exam Date Time Procedure Performing Provider Status 03/17/22 4:58 PM Chest 2 Views Frontal and Lat Amy , Katarina; Auth (Verified) Notes:(Chest 2 Views Frontal and Lat) Reason For Exam: Chest Pain;Other:RESULT: Chest 2 Views Frontal and Lat Chest 2 Views Frontal and Lat Hx of Present Illness: CP, N V; Reason: Other:; Chest Pain; Clinical Question(s): Other: COMPARISON: 03/12/2022 FINDINGS: LINES AND TUBES: None. LUNGS AND PLEURA: Low lung volumes with mild basilar atelectasis. Lungs are otherwise clear with no consolidation. No pleural effusion. No pneumothorax. HEART, MEDIASTINUM AND EVERT: Mild prominence of the cardiac silhouette. Normal mediastinal and hilar contour. BONES AND SOFT TISSUES: No acute abnormality. IMPRESSION: Mild cardiac enlargement without evidence for pneumonia or CHF. No change from previous exams. WSN: [id number] Ordering Physician: Uriel Manley Dictated By: Mihai Coates MD Dictated Date/Time: 03/17/22 5:01 pm Reviewed By: Mihai Coates MD Signed By: Mihai Coates MD Signed Date/Time: 03/17/22 5:01 pm Transcribed By: ALEXIS Transcribed Date/Time: 03/17/22 4:59 pm Vital Signs Most recent to oldest 1 2 3 [Reference Range]: Oxygen Saturation [94-100 %] 96 % 96 % 96 % (03/18/22 7:37 AM) (03/18/22 6:37 AM) (03/18/22 5:3 6 AM) Pulse Rate [55-90 bpm] 101 bpm 95 bpm 97 bpm *H* *H* *H* (03/18/22 7:37 AM) (03/18/22 6:37 AM) (03/18/22 5:3 6 AM) Blood Pressure [90-138/55-84 167/87 mm Hg 174/97 mm Hg 161 /88 mm Hg mm Hg] *H* *H* *H* (03/18/22 7:37 AM) (03/18/22 6:37 AM) (03/18/22 5:3 6 AM) Respiratory Rate [16-30 14 br/min 19 br/min 18 br/mi n br/min] *L* (03/18/22 6:37 AM) (03/18/22 5:36 AM) (03/18/22 7:37 AM) Temperature [96.8-100.4 DegF] 98.3 DegF 98.4 DegF 98 .4 DegF (03/18/22 7:37 AM) (03/18/22 2:05 AM) (03/18/22 12: 07 AM) Liters per Minute 2 L/min 2 L/min 2 L/min (03/18/22 6:37 AM) (03/18/22 5:36 AM) (03/18/22 4:3 2 AM) Mode of Delivery (Oxygen) Room air Nasal cannula Nasal cannula (03/18/22 7:37 AM) (03/18/22 6:37 AM) (03/18/22 5:3 6 AM) Blood pressure sites Arm, left Arm, left Arm, left (03/18/22 7:37 AM) (03/18/22 6:37 AM) (03/18/22 5:3 6 AM) Temperature Route Oral Oral Oral (03/18/22 7:37 AM) (03/18/22 2:05 AM) (03/18/22 12: 07 AM) Social History Social History Type Response Smoking Status Never (less than 100 in life time) entered on: 08/22/21 Sex Note Jose Manuel Alba DO: PERFORM Event Display: Patient Education Leaflets Authored Date: [id number] Unknown Causes of Abdominal Pain (Adult) ?? [id number] Unknown Causes of Abdominal Pain (Adult) The exact cause of your belly (abdominal) pain is not clear. Your exam and tests don't suggest a dangerous cause at this time. This does not mean that this is something to worry about. Everyone likes to know the exact cause of the problem. But sometimes with belly pain, there is no clear-cut cause, and this could be a good thing. Your symptoms can be treated, and you should feel better.?? Your condition does not seem serious now. But sometimes the signs of a serious problem may take more time to appear. For this reason,??it's important for you to watch for any new symptoms, problems,??or worsening of your condition. Over the next few days, the abdominal pain may come and go. Or it may be constant. Other common symptoms can include nausea and vomiting. Sometimes it can be difficult to tell if you feel nauseous. You may just feel bad and not connect that feeling to nausea. Constipation, diarrhea, and a fever may go along with the pain. The pain may continue even if treated correctly over the following days. Depending on how things go, sometimes the cause can become clear and you may need more??or different treatment. You may also need other evaluations, medicines, or tests. Home care Your healthcare provider may prescribe medicine for pain, symptoms, or an infection. ??Follow the healthcare provider's instructions for taking these medicines. General care ??? Rest as much as you can until your next exam. No strenuous activities. ??? Try to not do anything that may have caused your symptoms. This might be not taking any medicines unless otherwise directed by your healthcare provider. It might be not eating certain foods or doing certain activities. ???Find positions that ease discomfort. A small pillow placed on your belly may help relieve pain. ??? Something warm on your belly such as a heating pad may help, but be careful not to burn yourself. Diet ??? Don???t??force yourself to eat, especially if having cramps, vomiting, or diarrhea. ??? Water is important so you don't get dehydrated. Soup may also be good. Sports drinks may also help, especially if they are not too acidic. Don't drink sugary drinks as this can make things worse. Take liquids in small amounts. Don???t??guzzle them. ??? Caffeine sometimes makes the pain and cramping worse. ??? Don???t take??dairy products if you have vomiting or diarrhea. ??? Don't eat large amounts at atime. Eat several small meals during the day instead of 2 or 3 larger meals. Wait a few minutes between bites. ??? Eat a diet low in fiber (called a low-residue diet). Foods allowed include refined breads, white rice, fruit and vegetable juices without pulp, tender meats. These foods will pass more easily through the intestine. ??? Don???t have??whole-grain foods, whole fruits and vegetables, meats, seeds and nuts, fried or fatty foods, dairy, alcohol and spicy foods until your symptoms go away. ?? Follow-up care Follow up with your healthcare provider, or as advised, if your pain does not begin to improve in the next 24 hours. ?? Call 911 Call?? 911 if any of these occur: ??? Trouble breathing ??? Confusion ??? Fainting or loss of consciousness ??? Rapid heart rate ??? Seizure ?? When to seek medical advice Call your healthcare provider right away if any of these occur: ??? Pain gets worse or moves to theright lower abdomen ??? New or worsening vomiting or diarrhea ??? Swelling of the abdomen ??? Unableto pass stool for more than??3 days ??? Fever of 100.4??F (38??C) or higher, or as directed by your healthcare provider ??? Blood in vomit or bowel movements (dark red or black color) ??? Yellow color of eyes and skin (jaundice) ??? Weakness, dizziness ??? Chest, arm, back, neck, or jaw pain ??? Can'tkeep down medicines, liquids, or water because of too much vomiting ??? If you have a vagina: unexpected vaginal bleeding or missed period ?? Last Reviewed Date: 2020 ?? [id number] [employer]. All rights reserved. This information is not intended as a substitute for professional medical care. Always follow your healthcare professional's instructions. ??BHSPowerscribe , CIS S: TRANSCRIBE Mihai Coates MD: VERIFY Event Display: Result: Authored Date: [id number] Chest 2 Views Frontal and Lat Hx of Present Illness: CP, N V; Reason: Other:; Chest Pain; Clinical Question(s): Other: COMPARISON: 03/12/2022 FINDINGS: LINES AND TUBES: None. LUNGS AND PLEURA: Low lung volumes with mild basilar atelectasis. Lungs are otherwise clear with no consolidation. No pleural effusion. No pneumothorax. HEART, MEDIASTINUM AND EVERT: Mild prominence of the cardiac silhouette. Normal mediastinal and hilar contour. BONES AND SOFT TISSUES: No acute abnormality. IMPRESSION: Mild cardiac enlargement without evidence for pneumonia or CHF. No change from previous exams. WSN: [id number] Ordering Physician: Uriel Manley Dictated By: Mihai Coates MD Dictated Date/Time: 03/17/22 5:01 pm Reviewed By: Mihai Coates MD Signed By: Mihai Coaets MD Signed Date/Time: 03/17/22 5:01 pm Transcribed By: ALEXIS Transcribed Date/Time: 03/17/22 4:59 pm Patient Care team information Care Team [...] Care Nurse Name: Keira Desai RN Position: [facility] RN Member Role: Primary Care Nurse Name: Gomez Moseley RN Position: [facility] RN Supv Member Role: Primary Care Nurse Name: Vashti Bruce RN Position: [facility] RN Member Role: Primary Care Nurse Name: Raghav Granger Position: [facility] RN Member Role: Primary Care Nurse Name: Cassy Caraballo RN Position: [facility] RN Member Role: Primary Care Nurse Name: Jodi Carrillo RN Position: [facility] RN Member Role: Primary Care Nurse Name: Abbey Shelley RN Position: [facility] RN Member Role: Primary Care Nurse Name: Larissa Barnett RN Position: [facility] RN Member Role: Primary Care Nurse Name: Inna Beckwith RN Position: [facility] RN Member Role: Primary Care Nurse Name: Cady Araya RN Position: [facility] RN Member Role: Primary Care Nurse Name: Abdon Beard MD Position: [facility] Outreach Member Role: PCP Address: Address: [address] [place] [address]- Name: Michele Blancas DO Position: [facility] Renal MD Member Role: Lifetime Consulting Physician Address: Address: [address] [place], [place] [address] [place] [address]- [place] Name: María Acosta RN Position: [facility] RN Member Role: Primary Care Nurse Name: Treasure Gilbert RN Position: [facility] RN Supv Member Role: Primary Care Nurse Name: Stefany Grajeda RN Position: [facility] RN Member Role: Primary Care Nurse Name: Farzana Sevilla Position: [facility] RN Member Role: Primary Care Nurse Name: Javan Pimentel MD Position: [facility] Renal MD Member Role: Lifetime Consulting Physician Address: Address: [address] [place] [address] [address] [facility] [place] [address]- [place] Name: Heather Pal RN Position: [facility] RN Member Role: Primary Care Nurse Name: Jody Rasmussen RN Position: [facility] RN Member Role: Primary Care Nurse Name: Mua Hazel RN Position: [facility] RN Member Role: Primary Care Nurse Name: Pedro Taylor RN Position: [facility] RN Member Role: Primary Care Nurse Name: Charlotte Singletary RN Position: [facility] OB RN Member Role: Primary Care Nurse Name: Alison Jose RN Position: [facility] RN Member Role: Primary Care Nurse Name: Kendall Coleman RN Position: [facility] RN Member Role: Primary Care Nurse Name: Nancy Fair RN Position: [facility] SN RN Member Role: Primary Care Nurse Name: Sofie Reed Position: [facility] RN Member Role: Primary Care Nurse Name: Fernando Siddiqi MD Position: [facility] Renal MD Member Role: Lifetime Consulting Physician Address: Address: [address] [place] [address] [facility] [address] Name: Kaelyn Lewis RN Position: [facility] RN Member Role: Primary Care Nurse Name: Lianne Byrnes RN Position: [facility] RN Member Role: Primary Care Nurse Name: Tona Jacome LPN Position: [facility] RN Member Role: Primary Care Nurse Name: Tatiana Madrigal RN Position: [facility] RN Member Role: Primary Care Nurse Name: Jose Callejas RN Position: [facility] RN Member Role: Primary Care Nurse Name: Ashely Riley Position: [facility] RN Member Role: Primary Care Nurse Name: Marilu Mayen Position: [facility] ED RN W/OE and Tasks Member Role: Patient Care Provider Name: Angely Howe Position: [facility] ED TA [facility] Member Role: Manufacturing Process Technician Name: Silver Ruiz RN Position: [facility] ED RN W/OE and Tasks Name: Jose Manuel Alba DO Position: [facility] Resident Member Role: Resident Address: Address: [address] [place] [address]- Name: Rosemarie Amaya MD Position: [facility] ED Medicine MD Member Role: ED Attending Physician Address: Address: [address] [place] [address]- Care Team Related PersonsName: LEONOR MCFARLAND Address: home [address] [place] [address] Name: REJI TAYLOR Address: home [address] [place] [address] Name: JEFF CHAPMAN Address: [address] Address: home [address] [address] [place] Name: ELI BONILLA Address: home [address] [address]
--- OUTSIDE RECORDS SUMMARY | 2022-03-31 18:22 | XMS_ITS | Continuity of Care Document ---
:1990 Author Organization [facility] Address [address] [place] [address]- Care Team Providers Name Role Phone Abdon Beard MD Primary Care Physician [place] [facility] - 09/02/[address] [address] Attending Physician: Not on Staff, Attending MD [...] '943Admin Note: TD4 Admin Note: unknown exact [id number] Note: unknown exact date Medications acetaminophen 325 [...] 08/24/21 11:43:00 EDT, Route to Pharmacy Electronically, [facility]/pharmacy #[id number], Partial fill upon patient request ifthe prescription [...] 3 Refills, Maintenance, 08/24/21 11:44:00EDT, Capsule, [id number], Partial fill upon patient request if the [...] 08/24/21 11:44:00 EDT, Route to Pharmacy Electronically, [facility]/pharmacy #[id number], Partial fill u... Start Date: 08/24/21 Status: OrderedLevemir FlexTouch 100 units/mL subcutaneous solution = 8 units, Subcutaneous Injection, Daily at bedtime, # 10 mL, 0 Refills, Maintenance, 08/24/21 11:26:00 EDT, Injection, [facility]/pharmacy #[id number], Partial fill upon patient request if the prescription is for a schedule II opioid drug., 168, cm, 08/24/21 10:3... Start Date: 08/24/21 Stop Date: 09/23/21 Status: OrderedMetoprolol Tartrate 25 mg oral tablet 1.5 tablet = 37.5 mg, By Mouth, 2 times a day, # 90 tablet, 3 Refills, Maintenance, 08/24/21 11:44:00 EDT, Tablet, [facility] Dry Weight Start Date: 08/24/21 Status: OrderedPen [place], 30 G x 8 mm BD Ultra [...] Refills, Maintenance, 08/24/21 11:27:00 EDT, Chew Tablet, [facility]/pharmacy [...] Active Obese class I(Confirmed) Active Care Coordination [facility], Hakan Active Jeanne, CC (Confirmed) Pre-existing diabetes mellitus Active affecting , antepartum(Confirmed) Poor vision(Confirmed)6 Active 1Managed by PCP. WEll controlled.2Self-manages. States currently stable. No medications.3Not seem at [facility] since 08/12/2016. Multiple no show in our center. She is seen by other provider Dr Matt Gutierrez by pharmacy records.4Managed by [id number] by PCP with [id number], states sees shadows and has blurry vision. Last eye doctor appointment was several years ago. Social History Social History Type Response Smoking Status Never (less than 100 in life time) entered on: 08/22/21 Sex
--- OUTSIDE RECORDS SUMMARY | 2022-03-31 18:22 | XMS_ITS | Continuity of Care Document ---
:1990 Author Organization [facility] Address [address] [place] [id number]- Care Team Providers Name Role Phone Chirag CARLSON, Abdon Primary Care Physician Encounter [facility] Date(s): 12/01/21 - 01/14/22 [facility] [address] [place] [id number] Attending Physician: Carl Mcdonnell DO Admitting Physician: Carl Mcdonnell DO Referring Physician: Shannan Jean-Baptiste Allergies, Adverse Reactions, Alerts Substance Reaction Severity [...] '943Admin Note: TD4 Admin Note: unknown exact [id number] Note: unknown exact date Medications Alcohol Pads [...] 12/13/21 14:16:00 EDT, Route to Pharmacy Electronically, [facility]/pharmacy #[id number], Partial fill upon patient request if the prescriptio... Start Date: 12/13/21 Status: OrderedCoreg 25 mg oral tablet 50 mg, 2, tablet, By Mouth, 2 times a day, # 120 tablet, Refills 0, Tot. Refills 0, Maintenance, 12/13/21 14:16:00 EDT, Route to Pharmacy Electronically, [facility]/pharmacy #[id number], Partial fill upon patient request if the [...] 12/13/21 14:16:00 EDT, Route to Pharmacy Electronically, [facility]/pharmacy #[id number], Partial fill upon patient request if the prescription is for a schedule II op... Start Date: 12/13/21 Status: OrderedLevemir FlexTouch 100 units/mL subcutaneous solution See Instructions, INJECT 8 UNITS SUBCUTANEOUSLY AT BEDTIME FOR 30 DAYS, # 15 Unknown, 0 Refills, Maintenance, 12/19/21 16:07:00 EDT, [id number], 168, cm, 12/13/21 12:57:00 EDT, Height, 90, kg, 12/13/21 11:35:00 EDT, Dry Weight Start Date: 12/19/21 Status: OrderedNIFEdipine (Eqv-Procardia XL) 90 mg oral tablet, extended release 1 tablet = 90 mg, By Mouth, Daily, # 30 tablet, 0 Refills, Maintenance, 12/13/21 14:16:00 EDT, [facility]/pharmacy #[id number], Partial fill upon patient request [...] 12/13/21 14:17:00 EDT, Route to Pharmacy Electronically, [facility]/pharmacy #[id number], Partial fill upon elisa... Start Date: 12/13/21 Status: OrderedPeak Flow Meter (Adult) See Instructions, # 1 each, Maintenance, Use when wheezing or chest tightness. Call for peak flow less than 200., 08/24/21 15:17:00 EDT, Supply, 168, cm, 08/24/21 11:41:00 EDT, Height, 75.8, kg, 06/09/21 11:38:00 EDT, Dry Weight Start Date: 08/24/21 Status: OrderedPen [place], 30 G x 8 mm BD Ultra Fine II See Instructions, # 300 each, Refills 2, Tot. Refills 2, Maintenance, use as directed for Type 2 Diabetes Mellitus, 06/18/21 9:51:00 EDT, Supply, 167.6, cm, 06/18/21 8:09:00 EDT, Height, 75.8, kg, 06/09/21 11:38:00 EDT, Dry Weight Start Date: 4/23/22 Stop Date: 03/15/22 Status: OrderedProAir HFA 90 mcg/inh inhalation aerosol See Instructions, PRN Wheezing/Shortness of Breath, Inhale 2 puff every 4 to 6 hours as needed, # 18Gm, 0 Refills, Maintenance, 08/24/21 11:43:00 EDT, Inhaler, [facility]/pharmacy #[id number], Partial fill upon patient request [...] 12/13/21 14:17:00 EDT, Route to Pharmacy Electronically, [facility]/pharmacy #[id number], Partial fill upon patient request if the prescription is f... Start Date: 12/13/21 Status: OrderedTylenol Extra Strength 500 mg oral tablet 2 tablet = 1,000 mg, By Mouth, Every 4 hours, PRN for pain, # 120 tablet, 0 Refills, Maintenance, 12/13/21 14:17:00 EDT, Tablet, [facility]/pharmacy #[id number], Partial fill upon patient request [...] Active Care Coordination Confirmed Active [facility], Hakan Angel CC 1Managed by PCP. WEll controlled.2Self-manages. States currently stable. No medications.3Not seem at [facility] since 08/12/2016. Multiple no show in our center. She is seen by other provider Dr Matt Gutierrez by pharmacy records.4Managed by [id number] by PCP with Tylenol Social History Social History Type Response Smoking Status Never (less than 100 in life time) entered on: 08/22/21 Sex Cardiology Outpatient Note Zaria CARLSON, Yovany S: PERFORM, MODIFY Event Display: Cardiology Note Office Authored Date: Patient: ??ROWAN TAYLOR ? Age:??31 Years?Sex:??Female?:??1990?? History of Present Illness/Interval History Patient no show Allergies Zosyn??(angioedema) morphine??(Itching) vancomycin??(Tightness in throat) Home Medications Alcohol Pads, See Instructions, 2 refills, use as directed for Type 1 Diabetes Mellitus Blood Pressure Monitor, See Instructions, To test blood pressures 2 x day. Severe HTN in Colace sodium 100 mg oral capsule, 100 mg= 1 capsule, By Mouth, 2 times a day, PRN Coreg 25 mg oral tablet, 50 mg= 2 tablet, By Mouth, 2 times a day Freestyle Lancets, See Instructions, 2 refills, use as directed for Type 2 Diabetes Mellitus Freestyle Rogerio Monitor, See Instructions, Use as directed for Type 2 Diabetes Mellitus Freestyle Rogerio Sensor, See Instructions, 6 refills, Change every 14 days. Type 2 Diabetes Mellituscomplicated by blindness FREESTYLE LITE GLUCOSE METER, See Instructions, FOR GLUCOSE MONITORING DURING THE FREESTYLE LITE LANCETS, See Instructions, 5 refills, GLUCOSE MONITORING 4 TIMES A DAY DURING FREESTYLE LITE STRIPS, See Instructions, 5 refills, GLUCOSE MONITORING 4 TIMES PER DAY DURING THE Freestyle Test Strips, See Instructions, 2 refills, use as directed for Type 1 Diabetes Mellitus Humalog Kwik Pen, See Instructions, 8 units with breakfast; 10 units with lunch; 26 units with dinner. Subcutaneous injection daily. hydrALAZINE 25 mg oral tablet, 75 mg= 3 tablet, By Mouth, 3 times a day Levemir FlexTouch 100 units/mL subcutaneous solution, 10 units, Subcutaneous Injection, Daily at bedtime NIFEdipine (Eqv-Procardia XL) 90 mg oral tablet, extended release, 90 mg= 1 tablet, By Mouth, Daily oxyCODONE 5 mg oral tablet, 5 mg= 1 tablet, By Mouth, Every 6 hours, PRN, for severe post-operativepain Peak Flow Meter (Adult), See Instructions, Use when wheezing or chest tightness. Call for peak flowless than 200. Pen [place], 30 G x 8 mm BD Ultra Fine II, See Instructions, 2 refills, use as directed for Type 2 Diabetes Mellitus ProAir HFA 90 mcg/inh inhalation aerosol, See Instructions, PRN, Inhale 2 puff every 4 to 6 hours as needed Senexon-S 50 mg-8.6 mg oral tablet, 2 tablet, By Mouth, 2 times a day, PRN,?Not taking simethicone 80 mg oral tablet, chewable, 80 mg= 1 tablet, Chew, 4 times a day, PRN Tylenol Extra Strength 500 mg oral tablet, 1000 mg= 2 tablet, By Mouth, Every 4 hours, PRN Lab Results Cardiology Labs WBC:??12.9 k/mm3??High (12/11/21) RBC:??2.63 m/mm3??Low (12/11/21) Hgb:??7.9 Gm/dL??Low (12/11/21) Hct:??24 %??Low (12/11/21) MCV: 91.3 femtoliters (12/11/21) MCH: 30 pg (12/11/21) MCHC:??32.9 g/dL??Low (12/11/21) Platelet Count: 189 k/mm3 (12/11/21) RDW-SD: 42.9 femtoliters (12/11/21) Nucleated RBC (Automated): 0 #/100 WBC'S (12/11/21) Abs. Neut: 5.1 k/mm3 (11/27/21) Abs. Lymph:??0.5 k/mm3??Low (11/27/21) Abs. Dewey: 0.6 k/mm3 (11/27/21) Abs. Eo: 0 k/mm3 (11/27/21) Abs. Baso: 0 k/mm3 (11/27/21) Neut %:??81.7 %??High (11/27/21) Dewey %: 8.9 % (11/27/21) Eos %: 0.6 % (11/27/21) Baso %: 0.2 % (11/27/21) Imm Gran: 0.5 % (11/27/21) Abs. Imm Gran: 0 k/mm3 (11/27/21) INR: 1.1 (03/03/21) Protime (PT):??11.5 seconds??High (03/03/21) APTT:??111.6 seconds??Critical (07/13/21) Sodium: 134 mmol/L (12/11/21) Potassium: 4.4 mmol/L (12/11/21) Chloride: 101 mmol/L (12/11/21) Bicarbonate Level:??17 mmol/L??Low (12/11/21) Glucose Level:??136 mg/dL??High (12/11/21) Hemoglobin A1C (Monitoring): 5.5 % (11/17/21) BUN:??66 mg/dL??High (12/11/21) Creatinine-Blood:??3.3 mg/dL??High (12/11/21) Calcium:??8.2 mg/dL??Low (12/11/21) Protein, Total:??5.3 Gm/dL??Low (12/07/21) Albumin:??2.5 Gm/dL??Low (12/07/21) Alkaline Phosphatase: 72 units/L (12/07/21) AST (SGOT): 16 units/L (12/11/21) ALT (SGPT): 8 units/L (12/11/21) Bilirubin, Total: <0.2 (12/07/21) CK, Total: 61 units/L (04/23/21) Troponin T Quant: 0.04 ng/mL (12/07/21) Nt-Probnp:??46913 pg/mL??High (11/27/21) Cholesterol:??204 mg/dL??High (04/24/21) Triglycerides: 105 mg/dL (04/24/21) HDL Cholesterol: 42 mg/dL (04/24/21) LDL Cholesterol:??141 mg/dL??High (04/24/21) Non HDL Cholesterol:??162 mg/dL??High (04/24/21) TSH: 2.65 uIU/mL (07/10/21) Diagnostic Impression ECG ECG 12-Lead ?? 23:11:24 Please click on pdf link to open report ?? Signed By: Rosa Maria CARLSON, Mau Stress Test NM Myocard Perf SPECT Multi ?? 10:15:33 Summary 1. Myocardial perfusion is normal without any fixed or reversible perfusion defect after Regadenoson infusion. ?? 2. LV function is abnormal with an E.F. of 43% at rest and 48% after IV administration of Regadenoson with no focal wall motion abnormalities. ?? 3. EKG portion of the stress test is reported separately. ?? Signatures _ _ ?? Signed By: Jessa CARLSON, Mihai Cheng Echo Echocardiogram - Complete ?? 14:14:17 Summary The left ventricular size is normal. The left ventricular wall thickness is moderate to severely increased. The LV systolic function is mildly reduced. LVEF is estimated at 40-45%. Mild global LV hypokinesis with regional variation. Unable to assess diastolic function. The right ventricular size and function appear grossly normal. The left atrium is mild to moderately dilated. There is an atrial septal defect that is poorly visualized on this study. The right atrium is normal in size. There is mild mitral regurgitation. There is mild tricuspid valve regurgitation. The central venous pressure estimation is mildly elevated, 8mmHg. The pulmonary artery systolic pressure estimation is upper normal, 30 mmHg. ?? Comparison Comparison is made to the study of October 27, 2021. PA systolic pressure estimation is lower now. ?? Signature ?? Signed By: Stephen Marcial MD Problem List/Past Medical History Ongoing Asthma Blindness of right eye Cardiac disease during , antepartum Care Coordination [facility], Hakan Angel, CC CKD (chronic kidney disease), stage III Depression Diabetes mellitus type 2 growth retardation, H/O Chest pain Heart failure with preserved ejection fraction, NYHA class I Hypertension IUFD at 20 weeks or more of gestation Migraine Obese class I Obese class I Obese class I Obese class I Historical At risk for aneuploidy Blood group A Rh(D) positive Hypertension complicating Poor vision Pre-existing diabetes mellitus affecting , antepartum delivery delivery Procedure/Surgical History delivery only;: 12/09/21 : 2009 D&C: 2008 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 Regular exercise: No., 08/22/2021 Self assessment: Good condition., 03/05/2020 Home/Environment Living situation: Home with assistance. Lives with: Spouse. DCF involvement: Past. Other: Case closed now. Children live with their father. Patient has them on vacations. Feels unsafe at home: No., 08/22/2021 Nutrition/Health Diet: Diabetic., 03/05/2020 Sexual Sexually involved in last 6 months: Yes. Gender identity: Identifies as female. Preferred pronoun: She/her., 08/22/2021 Sexually involved in last 6 months: Yes. Gender identity: Identifies as female., 03/05/2020 Substance Abuse Use: Never., 08/22/2021 Tobacco Use: Never (less than 100 in lifetime)., 08/22/2021 Family History Mother (): CAD - Coronary artery disease; Diabetes mellitus type II; Hyperlipidemia; Hypertension; Myocardial infarction; Stroke Father: Asthma; Diabetes mellitus; Hyperlipidemia; Myocardial infarction Sister: Diabetes mellitus Brother: Diabetes mellitus Patient Care team information Care Team PersonnelName: Anuradha Morris RN Position: [facility] RN Member Role: Primary Care Nurse Name: Omega Gillespie RN Position: [facility] RN Member Role: Primary Care Nurse Name: Paty Kelly RN Position: [facility] RN Member Role: Primary Care Nurse Name: Sonia Malone Position: [facility] RN Member Role: Primary Care Nurse Name: Keira Desai RN Position: [facility] RN Member Role: Primary Care Nurse Name: Gomez Moseley RN Position: [facility] RN Supluis Member Role: Primary Care Nurse Name: Vashti Bruce RN Position: [facility] RN Member Role: Primary Care Nurse Name: Raghav Granger Position: [facility] RN Member Role: Primary Care Nurse Name: Cassy Caraballo RN Position: [facility] RN Member Role: Primary Care Nurse Name: Lisa Vines RN Position: [facility] RN Member Role: Primary Care Nurse Name: Larissa Barnett RN Position: [facility] RN Member Role: Primary Care Nurse Name: Inna Beckwith RN Position: [facility] RN Member Role: Primary Care Nurse Name: Cady Araya RN Position: [facility] RN Member Role: Primary Care Nurse Name: Abdon Beard MD Position: [facility] Outreach Member Role: PCP Address: Address: [address] [place] [id number]- Name: Michele Blancas DO Position: [facility] Renal MD Member Role: Lifetime Consulting Physician Address: Address: [address] [place], [place] [address] [place] [address]- Name: María Acosta RN Position: [facility] RN Member Role: Primary Care Nurse Name: Heather Correa RN Position: [facility] RN Member Role: Primary Care Nurse Name: Janelle Hall RN Position: [facility] RN Member Role: Primary Care Nurse Name: Alison Howard RN Position: [facility] RN Member Role: Primary Care Nurse Name: Farzana Sevilla Position: S RN Member Role: Primary Care Nurse Name: Libertad Sim RN Position: S RN Member Role: Primary Care Nurse Name: Javan Pimentel MD Position: [facility] Renal MD Member Role: Lifetime Consulting Physician Address: Address: [address] [place] [address] [address] [facility], [place] [address]- Name: Heather Pal RN Position: S RN Member Role: Primary Care Nurse Name: Jody Rasmussen RN Position: [facility] RN Member Role: Primary Care Nurse Name: Mau Hazel RN Position: [facility] RN Member Role: Primary Care Nurse Name: Pedro Taylor RN Position: [facility] RN Member Role: Primary Care Nurse Name: Charlotte Singletary RN Position: [facility] OB RN Member Role: Primary Care Nurse Name: Kendall Coleman RN Position: [facility] RN Member Role: Primary Care Nurse Name: Nancy Fair RN Position: [facility] SN RN Member Role: Primary Care Nurse Name: Fernando Siddiqi MD Position: [facility] Renal MD Member Role: Lifetime Consulting Physician Address: Address: [address] [place] [address] [facility] [place] [address]- Name: Lianne Byrnes RN Position: S RN Member Role: Primary Care Nurse Name: Tona Jacome LPN Position: S RN Member Role: Primary Care Nurse Name: Tatiana Madrigal RN Position: S RN Member Role: Primary Care Nurse Care Team Related PersonsName: LEONOR MCFARLAND Address: home [address] [place] [address] Name: REJI TAYLOR Address: home [address] [place] [address] Name: JEFF CHAPMAN Address: [address] Address: home [address] [address] [place] Name: ELI BONILLA
--- OUTSIDE RECORDS SUMMARY | 2022-03-31 18:22 | XMS_ITS | Continuity of Care Document ---
:1990 Author Organization [facility] Address [address] [place] [address]- Care Team Providers Name Role Phone Abdon Beard MD Primary Care Physician Encounter [facility] Date(s): 07/19/21 - 07/20/[address] [address]- Discharge Disposition: A-D/C Home Attending Physician: Michael CARLSON, Varinder Randall Admitting Physician: Varinder Rodriguez MD Referring Physician: Not on Staff, Referring [...] '943Admin Note: TD4 Admin Note: unknown exact [id number] Note: unknown exact date Medications acetaminophen 325 [...] 06/18/21 9:46:00 EDT, Route to Pharmacy Electronically, [facility], Partial fill upon patient request if the prescription is for a schedule II opioid... Start Date: 06/18/21 Status: Orderedatorvastatin 40 mg oral tablet 1 tablet = 40 mg, By Mouth, Daily at bedtime, Follow-up with your primary care doctor for further refills., # 30 tablet, 1 Refills, Maintenance, 06/18/21 9:46:00 EDT, Tablet, [facility], Partial fill upon patient request if the prescript... Start Date: 06/18/21 Status: Orderedcephalexin monohydrate 500 mg oral capsule 1 capsule = 500 mg, By Mouth, Every 6 hours, for 14 days, # 56 capsule, 0 Refills, Acute 07/28/21 16:28:00 EDT, 07/14/21 16:28:00 EDT, Capsule, [facility]/pharmacy #[id number], Partial fill upon patient request if the prescription is for a schedule II opioid drug.... Start Date: 07/14/21 Stop Date: 07/28/21 Status: Orderedduloxetine 30 mg oral enteric coated capsule 1 capsule = 30 mg, By Mouth, 2 times a day, # 60 capsule, 0 Refills, Maintenance, 06/18/21 9:46:00 EDT, Capsule, [facility], Partial fill upon patient [...] Refills, Maintenance, 11/17/20 10:19:00 EDT, Tablet, [facility]/pharmacy #[id number], Partial fillupon patient request if the prescription is for a... Start Date: 11/17/20 Status: OrderedLasix 20 mg oral tablet 20 mg, 1, tablet, By Mouth, Every other day, Follow-up with your primary care doctor for further refills., # 30 tablet, Refills 0, Tot. Refills 0, Maintenance, 07/14/21 16:27:00 EDT, Route to Pharmacy Electronically, [facility]/pharmacy #[id number], Partial fill u... Start Date: 07/14/21 Status: OrderedLevemir FlexTouch 100 units/mL subcutaneous solution = 8 units, Subcutaneous Injection, Daily at bedtime, # 10 mL, 0 Refills, Maintenance, 06/19/21 9:20:00 EDT, Injection, [facility], Partial fill upon patient request if the prescription isfor a schedule II opioid drug., 167.6, cm, ... Start Date: 06/19/21 Stop Date: 07/19/21 Status: Orderedlidocaine 5% topical film 1 patch, Topically, Daily, PRN Pain , Mild, remove after 12 hours, # 13 each, 0 Refills, Maintenance, 04/19/21 11:26:00 EST, Film, [facility]/pharmacy #[id number], Partial fill upon patient request if the prescription is for a schedule II opioid drug., 1 patch Top... Start Date: 04/19/21 Status: Orderedlisinopril 5 mg oral tablet 5 mg, 1, tablet, By Mouth, Daily, # 30 tablet, Refills 0, Tot. Refills 0, Maintenance, 07/14/21 16:28:00 EDT, Route to Pharmacy Electronically, [facility]/pharmacy #[id number], Partial fill upon patient request [...] Refills, Maintenance, 03/31/21 14:26:00 EST, Tablet, [facility]/pharmacy #[id number], Partial fill... Start Date: 03/31/21 Status: OrderedoxyCODONE 5 mg oral tablet 5 mg, 1, tablet, By Mouth, Every 6 hours, PRN, Refills 0, Tot. Refills 0, Pain , Severe Start Date: 06/09/21 Status: OrderedPen [place], 30 G x 8 mm BD Ultra [...] 07/28/21 16:29:00 EDT, 07/14/21 16:29:00 EDT, Tablet, [facility]/pharmacy #[id number], Partial fill upon patient request [...] 2(Confirmed)1 Active Hypertension(Confirmed) Active Care Coordination [facility], Hakan Active Angel, CC (Confirmed) delivery(Confirmed) Active delivery(Confirmed) Active 1Not seem at [facility] since 08/12/2016. Multiple no show in our center. She is seen by other provider Dr Matt Gutierrez by pharmacy records. Vital Signs Most recent to oldest 1 2 3 [Reference Range]: Oxygen Saturation [94-100 %] 100 % 100 % 100 % (07/20/21 8:45 AM) (07/20/21 6:59 AM) (07/20/21 3:4 1 AM) Pulse Rate [55-90 bpm] 100 bpm 103 bpm 111 bpm *H* *H* *H* (07/20/21 8:45 AM) (07/20/21 6:59 AM) (07/20/21 3:4 1 AM) Blood Pressure [90-138/55-84 172/97 mm Hg 195/104 mm Hg 188 /104 mm Hg mm Hg] *H* *H* *H* (07/20/21 8:45 AM) (07/20/21 6:59 AM) (07/20/21 3:4 1 AM) Respiratory Rate [16-30 16 br/min 18 br/min 18 br/mi n br/min] (07/20/21 8:45 AM) (07/20/21 6:59 AM) (07/20/21 3:4 1 AM) Temperature [96.8-100.4 DegF] 98.1 DegF 98 DegF 97 .7 DegF (07/20/21 8:45 AM) (07/20/21 12:42 AM) (07/19/21 10 :14 PM) Mode of Delivery (Oxygen) Room air Room air Room a ir (07/20/21 8:45 AM) (07/20/21 6:59 AM) (07/20/21 3:4 1 AM) Blood pressure sites Arm, right Arm, right Arm, right (07/20/21 8:45 AM) (07/20/21 6:59 AM) (07/20/21 3:4 1 AM) Temperature Route Oral Temporal Oral (07/20/21 8:45 AM) (07/20/21 12:42 AM) (07/19/21 10 :14 PM) Social History Social History Type Response Smoking Status Never (less than 100 in life time) entered on: 04/23/21 Sex
--- OUTSIDE RECORDS SUMMARY | 2022-03-31 18:22 | XMS_ITS | Continuity of Care Document ---
:1990 Author Organization [facility] Address [address] [place] [address]- Care Team Providers Name Role Phone Chirag CARLSON, Abdon Primary Care Physician Encounter [facility] Date(s): 07/05/21 - 08/04/21 [facility] [address] [place], [place] [address] Attending Physician: Michael Marquez Admitting Physician: AdmtrMichael Referring Physician: Admtr, [id number] [...] '[id number] Note: TD4 Admin Note: unknown exact [id number] Note: unknown exact date Medications acetaminophen 325 [...] 06/18/21 9:46:00 EDT, Route to Pharmacy Electronically, [facility], Partial fill upon patient request if the prescription is for a schedule II opioid... Start Date: 06/18/21 Status: Orderedatorvastatin 40 mg oral tablet 1 tablet = 40 mg, By Mouth, Daily at bedtime, Follow-up with your primary care doctor for further refills., # 30 tablet, 1 Refills, Maintenance, 06/18/21 9:46:00 EDT, Tablet, [facility], Partial fill upon patient request if the prescript... Start Date: 06/18/21 Status: Orderedduloxetine 30 mg oral enteric coated capsule 1 capsule = 30 mg, By Mouth, 2 times a day, # 60 capsule, 0 Refills, Maintenance, 06/18/21 9:46:00 EDT, Capsule, [facility], Partial fill upon [...] Refills 0, Tot. Refills 0, Maintenance, glucometer, 04/23/229:49:00 EDT, Supply, 167.6, cm, 06/18/21 8:09:00 EDT, [...] 07/14/21 16:27:00 EDT, Route to Pharmacy Electronically, [facility]/pharmacy #[id number], Partial fill u... Start Date: 07/14/21 Status: OrderedLevemir FlexTouch 100 units/mL subcutaneous solution = 8 units, Subcutaneous Injection, Daily at bedtime, # 10 mL, 0 Refills, Maintenance, 06/19/21 9:20:00 EDT, Injection, [facility], Partial fill upon patient request if [...] 07/14/21 16:28:00 EDT, Route to Pharmacy Electronically, [facility] [...] , Severe Start Date: 06/09/21 Status: OrderedPen [place], 30 G x 8 mm BD Ultra [...] Refills, Maintenance, 07/24/21 14:28:00 EDT, Chew Tablet, [facility] [...]
--- OUTSIDE RECORDS SUMMARY | 2022-03-31 18:22 | XMS_ITS | Continuity of Care Document ---
:1990 Author Organization [facility] [employer] [employer] [facility] Address [address] [place] [address], [address] [place] [phone]- Care Team Providers Name Role Phone Abdon Beard MD Primary Care Physician [place] [facility] [place]): [place] [facility] [address] [place] [address], [address] [place] [id number] Allergies, Adverse Reactions, Alerts Substance [...] '[id number] Note: TD4 Admin Note: unknown exact [id number] Note: unknown exact date Medications acetaminophen 325 [...] 06/18/21 9:46:00 EDT, Route to Pharmacy Electronically, [facility], Partial fill upon patient request if the prescription is for a schedule II opioid... Start Date: 06/18/21 Status: Orderedatorvastatin 40 mg oral tablet 1 tablet = 40 mg, By Mouth, Daily at bedtime, Follow-up with your primary care doctor for further refills., # 30 tablet, 1 Refills, Maintenance, 06/18/21 9:46:00 EDT, Tablet, [facility], Partial fill upon patient request if the prescript... Start Date: 06/18/21 Status: Orderedduloxetine 30 mg oral enteric coated capsule 1 capsule = 30 mg, By Mouth, 2 times a day, # 60 capsule, 0 Refills, Maintenance, 06/18/21 9:46:00 EDT, Capsule, [facility], Partial fill upon patient [...] 3 Refills, Maintenance, 11/17/20 10:19:00 EDT, Tablet, [facility]/pharmacy #[id number], Partial fillupon patient request if the prescription is for a... Start Date: 11/17/20 Status: OrderedLasix 20 mg oral tablet 20 mg, 1, tablet, By Mouth, Every other day, Follow-up with your primary care doctor for further refills., # 30 tablet, Refills 0, Tot. Refills 0, Maintenance, 07/14/21 16:27:00 EDT, Route to Pharmacy Electronically, [facility]/pharmacy #[id number], Partial fill u... Start Date: 07/14/21 Status: OrderedLevemir FlexTouch 100 units/mL subcutaneous solution = 8 units, Subcutaneous Injection, Daily at bedtime, # 10 mL, 0 Refills, Maintenance, 06/19/21 9:20:00 EDT, Injection, [facility], Partial fill upon patient request if the prescription isfor a schedule II opioid drug., 167.6, cm, ... Start Date: 06/19/21 Stop Date: 07/19/21 Status: Orderedlidocaine 5% topical film 1 patch, Topically, Daily, PRN Pain , Mild, remove after 12 hours, # 13 each, 0 Refills, Maintenance, 04/19/21 11:26:00 EST, Film, [facility]/pharmacy #[id number], Partial fill upon patient request if the prescription is for a schedule II opioid drug., 1 patch Top... Start Date: 04/19/21 Status: Orderedlisinopril 5 mg oral tablet 5 mg, 1, tablet, By Mouth, Daily, # 30 tablet, Refills 0, Tot. Refills 0, Maintenance, 07/14/21 16:28:00 EDT, Route to Pharmacy Electronically, [facility]/pharmacy #[id number], Partial fill upon patient request [...] 0 Refills, Maintenance, 03/31/21 14:26:00 EST, Tablet, [facility]/pharmacy #[id number], Partial fill... Start Date: 03/31/21 Status: OrderedoxyCODONE 5 mg oral tablet 5 mg, 1, tablet, By Mouth, Every 6 hours, PRN, Refills 0, Tot. Refills 0, Pain , Severe Start Date: 06/09/21 Status: OrderedPen [place], 30 G x 8 mm BD Ultra [...] Refills, Maintenance, 07/24/21 14:28:00 EDT, Chew Tablet, [facility]/pharmacy #[id number], Partial fill upon patient request [...] 2(Confirmed)1 Active Hypertension(Confirmed) Active Care Coordination [facility], Hakan Active Angel, CC (Confirmed) delivery(Confirmed) Active delivery(Confirmed) Active 1Not seem at [facility] since 08/12/2016. Multiple no show in our center. She is seen by other provider Dr Matt Gutierrez by pharmacy records. Social History Social History Type Response Smoking Status Never (less than 100 in life time) entered on: 04/23/21 Sex
--- OUTSIDE RECORDS SUMMARY | 2022-03-31 18:22 | XMS_ITS | Continuity of Care Document ---
:1990 Author Organization [facility] Address [address] [place] [address]- Care Team Providers Name Role Phone Not on Staff, PCP Primary Care Physician Unavailable [facility]counter [facility] Date(s): 02/16/20 - 03/17/20 [facility] [address] [place] [id number] Allergies, Adverse Reactions, Alerts Substance [...] '[id number] Note: TD4 Admin Note: unknown exact [id number] Note: unknown exact date Medications aspirin 81 mg oral delayed release tablet 162 mg, 2, tablet, By Mouth, Daily, To begin taking at 12 weeks gestational age - Approx. Apr 14 2020, # 30 tablet, Refills 0, Tot. Refills 0, Maintenance, 03/05/20 14:49:00 EST, Route to Pharmacy Electronically, [facility]/pharmacy #[id number], Partial fill upo... Start Date: 03/05/20 Status: [...] 5 Refills, Maintenance, 02/05/20 20:04:00 EST, Solution, [facility]/pharmacy #[id number], Partial fill upon patient request if the prescription is for a schedule II opioid drug., 170, cm, 01/08/20 13:38:... Start Date: 02/05/20 Status: OrderedLevemir FlexTouch 100 units/mL subcutaneous solution See Instructions, Take 40 units once daily. E11.65, # 30 mL, 5 Refills, Maintenance, 02/18/20 16:48:00 EST, [facility]/pharmacy #[id number], Stop Lantus. Start Levemir., 170, cm, 01/08/20 13:38:00 EST, Height, 99.1, kg, 01/03/20 5:38:00 EST, Dry Weight Start Date: 02/18/20 Status: OrderedNIFEdipine 30 mg oral tablet, extended release 30 mg, 1, tablet, By Mouth, Daily, do not crush or chew, # 90 tablet, Refills 2, Tot. Refills 2, Maintenance, 03/05/20 14:48:00 EST, Route to Pharmacy Electronically, [facility]/pharmacy #[id number], Partial fill upon patient request if the prescription is for a s... Start Date: 03/05/20 Status: OrderedNovoLOG FlexPen 100 units/mL subcutaneous solution See Instructions, Max daily dose 50 units, per sliding scale. E11.65, # 30 mL, 5 Refills, Maintenance, 02/05/20 14:37:00 EST, Solution, [facility]/pharmacy #[id number], Partial fill upon patient request if the prescription is for a schedule II opioid drug., 170, c... Start Date: 02/05/20 Status: OrderedPrenatal Multivitamins with Folic Acid 1 mg oral tablet 1 tablet, By Mouth, Daily, # 90 tablet, 2 Refills, Maintenance, 03/05/20 14:51:00 EST, Tablet, [facility]/pharmacy #[id number], Partial fill upon patient request [...] mL, 0 Refills, Maintenance, 02/05/20 14:37:00 EST, Anjum, [facility]/pharmacy #[id number], Partial fill upon patient request if the... Start Date: 02/05/20 Status: Ordered Problem List Condition Effective Dates Status Health Status Informant Asthma(Confirmed) Active Blindness of right eye(Confirmed) Active Blood group A Rh(D) Active positive(Confirmed) IUFD at 20 weeks or more of Active gestation(Confirmed) Depression(Confirmed) Active Diabetes mellitus type 2(Confirmed)1 Active Hypertension(Confirmed) Active Care Coordination [facility], Hakan Active Jeanne, CC (Confirmed) delivery(Confirmed) Active delivery(Confirmed) Active 1Not seem at [facility] since 08/12/2016. Multiple no show in our center. She is seen by other provider Dr Matt Gutierrez by pharmacy records. Social History Social History Type Response Smoking Status Never smoker entered on: 03/28/17 Sex
--- OUTSIDE RECORDS SUMMARY | 2022-03-31 18:23 | XMS_ITS | Continuity of Care Document ---
:1990 Author Organization [facility] Address [address] [place] [id number]- Care Team Providers Name Role Phone Chirag CARLSON, Abdon Primary Care Physician [facility]counter [facility] Date(s): 03/16/21 - 03/26/[address] [address] Discharge Disposition: A-D/C AMA Attending Physician: Chiki Alfaro MD Admitting Physician: Ksenia Gonzales MD Referring Physician: Not on Staff, Referring [...] '[id number] Note: TD4 Admin Note: unknown exact [id number] Note: unknown exact date Medications amLODIPine 10 [...] 06/10/21 15:59:00 EDT, 02/28/21 15:59:00 EST, Capsule, [facility], Partial fill upon patient request... Start Date: 02/28/21 Stop Date: 06/10/21 Status: Ordereddiclofenac 1% topical gel = 2 Gm, Topically, 4 times a day, # 112 Gm, 0 Refills, Maintenance, 02/05/21 12:34:00 EST, Gel, [facility], Partial fill upon patient request if the prescription is for a schedule II opioid drug., 170, cm, 03/05/20 14:05:00 EST, Height,... Start Date: 02/05/21 Stop Date: 02/19/21 Status: OrderedDilaudid 2 mg oral tablet 2 mg, Tablet, By Mouth, Every 4 hours, PRN for Pain , Severe, ALEKS, 03/26/21 14:09:00 EST Start Date: 03/26/21 Stop Date: 03/27/21 Status: Discontinueddoxycycline monohydrate 100 mg oral tablet = 100 mg, By Mouth, Daily at bedtime, Chronic suppressive therapy. Take daily at bedtime or 6 hours after iron tablet, # 30 tablet, 1 Refills, Maintenance, 03/26/21 16:17:00 EST, Tablet, [facility]/pharmacy #[id number], Partial fill upon patient [...] Refills, Maintenance, 11/17/20 10:19:00 EDT, Tablet, [facility]/pharmacy #[id number], Partial fillupon patient request if the prescription is for a... Start Date: 11/17/20 Status: OrderedLevemir FlexTouch 100 units/mL subcutaneous solution See Instructions, Take 40 units once daily. E11.65. 90-day supply., # 45 mL, 3 Refills, Maintenance,11/17/20 10:20:00 EDT, [facility]/pharmacy #[id number], Stop Lantus. Start Levemir., 170, cm, 03/05/20 14:05:00 EST, Height, 82, kg, 03/05/20 14:53:00 EST, Dry Weight Start Date: 11/17/20 Status: Orderedmetoprolol 25 mg oral tablet 12.5 mg, Tablet, By Mouth, ALEKS, 03/26/21 13:19:00 EST Start Date: 03/26/21 Stop Date: 03/26/21 Status: CompletedMetoprolol Tartrate 25 mg oral tablet [...] tablet 5 mg, Tablet, By Mouth, Every 4 hours, PRN for Pain , Moderate, Routine, 03/20/21 15:00:00 EST Start Date: 03/20/21 Stop Date: 03/26/21 Status: DiscontinuedoxyCODONE 5 mg oral tablet 5 mg, 1, [...] Active Obese class I(Confirmed) Active Care Coordination [facility], Hakan Active Angel, CC (Confirmed) delivery(Confirmed) Active delivery(Confirmed) Active 1Not seem at [facility] since 08/12/2016. Multiple no show in our center. She is seen by other provider Dr Matt Gutierrez by pharmacy records. Results Orders for Microbiology Reports Name Date Urine Culture (URINE CULTURE) 03/22/21 Blood Culture 03/16/21 Blood Culture #2 03/16/21 Microbiology Reports TEST:Urine Culture STATUS:Auth (Verified) BODY SITE: SOURCE:URINE COLLECTED DATE/TIME:03/22/21 2:42 PMUrine Culture SPECIMEN DESCRIPTION : URINE CLEAN CATCH/MIDSTREAM SPECIAL REQUESTS : NONE Reflexed from [id number] CULTURE : 10-50,000 COL/ML GROUP B BETA HEMOLYTIC STREPTOCOCCI ISOLATED. SUSCEPTIBILITY TESTING NOT ROUTINELY PERFORMED ON THIS ISOLATE. IF THIS PATIENT IS , PLEASE REFER TO ACOG GUIDELINES (2002) FOR APPROPRIATE SCREENING AND MANAGEMENT OF COLONIZED WOMEN. REPORT STATUS : FINAL 03/24/2021TEST:Blood Culture STATUS:Auth (Verified) BODY SITE: SOURCE:Blood COLLECTED DATE/TIME:03/16/21 11:32 AMBlood Culture SPECIMEN DESCRIPTION : BLOOD R SPECIAL REQUESTS : NONE CULTURE : NO GROWTH 5 DAYS. REPORT STATUS : FINAL 03/21/2021TEST:Blood Culture, Second Order STATUS:Auth (Verified) BODY SITE: SOURCE:Blood COLLECTED DATE/TIME:03/16/21 11:32 AMBlood Culture, Second Order SPECIMEN DESCRIPTION : BLOOD R SPECIAL REQUESTS : NONE CULTURE : NO GROWTH 5 DAYS. REPORT STATUS : FINAL 2Radiology Reports Exam Date Time Procedure Performing Provider Status 03/16/21 3:36 PM Foot Min 3 Views Right Regine Richey; Auth (Domonique ified) Notes:(Foot Min 3 Views Right) Reason For Exam: InfectionRESULT: Foot Min 3 Views Right Examination: Right foot performed on 03/16/2021. History: Hx of Present Illness: chest pain; Reason: Infection; Clinical Question(s): Osteomyelitis; osteomyelitis Findings: Frontal, oblique and lateral views of the right foot are compared to a prior study dated 02/26/2021. Changes of a transmetatarsal amputation are again seen. There are no fractures or erosions. Increased density within the soft tissues overlying the surgical site is noted. No soft tissue air is seen. IMPRESSION: Postsurgical change. Increased density within the soft tissues which could be secondary to edema. WSN: [id number] Ordering Physician: Beatrice Garcia Dictated By: Adia Cabello MD Dictated Date/Time: 03/16/21 3:43 pm Reviewed By: Adia Cabello MD Signed By: Adia Cabello MD Signed Date/Time: 03/16/21 3:43 pm Transcribed By: ALEXIS Transcribed Date/Time: 03/16/21 3:41 pm Exam Date Time Procedure Performing Provider Status 03/16/21 1:01 PM Chest 2 Views Frontal and Lat Catherine Caldwell; Nicol (Verified) Notes:(Chest 2 Views Frontal and Lat) Reason For Exam: chest pain;Other:RESULT: Chest 2 Views Frontal and Lat Chest 2 Views Frontal and Lat Hx of Present Illness: chest pain; Reason: Other:; chest pain; Clinical Question(s): Other:; mass COMPARISON: 02/26/2021 FINDINGS: LINES AND TUBES: None. LUNGS AND PLEURA: Clear lungs. Normal pulmonary vascularity. No pleural effusion. No pneumothorax. HEART, MEDIASTINUM AND EVERT: Heart is normal in size. Normal upper mediastinal and hilar contour. BONES AND SOFT TISSUES: No acute abnormality. IMPRESSION: No acute abnormality. WSN: [id number] Ordering Physician: Beatrice Garcia Dictated By: Nazario Salcedo MD Dictated Date/Time: 03/16/21 1:02 pm Reviewed By: Nazario Salcedo MD Signed By: Nazario Salcedo MD Signed Date/Time: 03/16/21 1:02 pm Transcribed By: ALEXIS Transcribed Date/Time: 03/16/21 1:01 pm Vital Signs Most recent to oldest 1 2 3 [Reference Range]: Oxygen Saturation [94-100 %] 100 % 100 % 100 % (03/26/21 1:11 PM) (03/26/21 7:00 AM) (03/26/21 3:0 0 AM) Pulse Rate [55-90 bpm] 115 bpm 115 bpm 100 bpm *H* *H* *H* (03/26/21 2:35 PM) (03/26/21 1:11 PM) (03/26/21 7:0 0 AM) Blood Pressure [90-138/55-84 206/108 mm Hg 206/108 mm Hg 1 166 /88 mm Hg mm Hg] *H* *H* *H* (03/26/21 2:35 PM) (03/26/21 1:11 PM) (03/26/21 7:0 0 AM) Respiratory Rate [16-30 16 br/min 16 br/min 22 br/mi n br/min] (1/29/22 2:36 PM) (03/26/21 10:35 AM) (03/26/21 7: 00 AM) Temperature [96.8-100.4 DegF] 98.3 DegF 98.2 DegF 98 .4 DegF (03/26/21 1:19 PM) (03/26/21 7:00 AM) (03/26/21 3:0 0 AM) Liters per Minute 2 L/min 1 L/min (03/20/21 7:41 AM) (03/20/21 4:00 AM) Mode of Delivery (Oxygen) Room air Room air Room a ir (03/26/21 1:11 PM) (03/26/21 7:00 AM) (03/26/21 3:0 0 AM) Blood pressure sites Arm, left Arm, left Arm, right (03/26/21 1:11 PM) (03/26/21 7:00 AM) (03/26/21 3:0 0 AM) Temperature Route Oral Oral Oral (03/26/21 1:19 PM) (03/26/21 7:00 AM) (03/26/21 3:0 0 AM) 1Result Comment: was made aware Social History Social History Type Response Smoking Status Never smoker entered on: 03/28/17 Sex
--- OUTSIDE RECORDS SUMMARY | 2022-03-31 18:23 | XMS_ITS | Continuity of Care Document ---
:1990 Author Organization [facility] Address [address] [place] [id number]- Care Team Providers Name Role Phone Abdon Beard MD Primary Care Physician En[place] [facility] Date(s): 08/22/21 - 10/13/[address] [address] Attending Physician: Not on Staff, Attending MD Referring Physician: Abdon Beard MD Allergies, [...] '943Admin Note: TD4 Admin Note: unknown exact [id number] Note: unknown exact date Medications acetaminophen 325 [...] 08/24/21 11:43:00 EDT, Route to Pharmacy Electronically, [facility]/pharmacy #[id number], Partial fill upon patient request ifthe prescription is for a schedule II opioid drug... Start Date: 08/24/21 Status: Orderedaspirin 81 mg oral delayed release tablet 2 tablet = 162 mg, By Mouth, Daily, # 90 tablet, 3 Refills, Maintenance, 10/05/21 12:28:00 EDT, CR Tablet, [id number], Partial fill upon patient request if the [...] 08/24/21 11:44:00 EDT, Route to Pharmacy Electronically, [facility]/pharmacy #[id number], Partial fill u... Start Date: 08/24/21 Status: OrderedLevemir FlexTouch 100 units/mL subcutaneous solution = 8 units, Subcutaneous Injection, Daily at bedtime, # 10 mL, 0 Refills, Maintenance, 08/24/21 11:26:00 EDT, Injection, [facility]/pharmacy #[id number], Partial fill upon patient request if the prescription is for a schedule II opioid drug., 168, cm, 08/24/21 10:3... Start Date: 08/24/21 Stop Date: 09/23/21 Status: OrderedMetoprolol Tartrate 25 mg oral tablet 2 tablet = 50 mg, By Mouth, 2 times a day, # 120 each, 4 Refills, Maintenance, 09/07/21 18:00:00 EDT, Tablet, [id number], Partial fill upon [...] Dry Weight Start Date: 08/24/21 Status: OrderedPen [place], 30 G x 8 mm BD Ultra [...] Active Obese class I(Confirmed) Active Care Coordination [facility], Hakan Angel, CC (Confirmed) Pre-existing diabetes mellitus Active affecting , antepartum(Confirmed) Poor vision(Confirmed)6 Active 1Managed by PCP. WEll controlled.2Self-manages. States currently stable. No medications.3Not seem at [facility] since 08/12/2016. Multiple no show in our center. She is seen by other provider Dr Matt Gutierrez by pharmacy records.4Managed by [id number] by PCP with [id number], states sees shadows and has blurry vision. Last eye doctor appointment was several years ago. Social History Social History Type Response Smoking Status Never (less than 100 in life time) entered on: 08/22/21 Sex
--- OUTSIDE RECORDS SUMMARY | 2022-03-31 18:23 | XMS_ITS | Continuity of Care Document ---
:1990 Author Organization [facility] Address [address] [place] [address]- Care Team Providers Name Role Phone Chirag CARLSON, Abdon Primary Care Physician [facility]counter [facility] Date(s): 06/20/21 - 08/04/21 [facility] [address] [place], [place] [address] Attending Physician: Luis Bowers MD Admitting Physician: Luis Bowers MD Referring Physician: Abdon Beard MD Allergies, [...] '943Admin Note: TD4 Admin Note: unknown exact [id number] Note: unknown exact date Medications acetaminophen 325 [...] 06/18/21 9:46:00 EDT, Route to Pharmacy Electronically, [facility], Partial fill upon patient request if the prescription is for a schedule II opioid... Start Date: 06/18/21 Status: Orderedatorvastatin 40 mg oral tablet 1 tablet = 40 mg, By Mouth, Daily at bedtime, Follow-up with your primary care doctor for further refills., # 30 tablet, 1 Refills, Maintenance, 06/18/21 9:46:00 EDT, Tablet, [facility], Partial fill upon patient request if the prescript... Start Date: 06/18/21 Status: Orderedduloxetine 30 mg oral enteric coated capsule 1 capsule = 30 mg, By Mouth, 2 times a day, # 60 capsule, 0 Refills, Maintenance, 06/18/21 9:46:00 EDT, Capsule, [facility], Partial fill upon patient request [...] 3 Refills, Maintenance, 11/17/20 10:19:00 EDT, Tablet, [facility]/pharmacy #[id number], Partial fillupon patient request if the prescription is for a... Start Date: 11/17/20 Status: OrderedLasix 20 mg oral tablet 20 mg, 1, tablet, By Mouth, Every other day, Follow-up with your primary care doctor for further refills., # 30 tablet, Refills 0, Tot. Refills 0, Maintenance, 07/14/21 16:27:00 EDT, Route to Pharmacy Electronically, [facility]/pharmacy #[id number], Partial fill u... Start Date: 07/14/21 Status: OrderedLevemir FlexTouch 100 units/mL subcutaneous solution = 8 units, Subcutaneous Injection, Daily at bedtime, # 10 mL, 0 Refills, Maintenance, 06/19/21 9:20:00 EDT, Injection, [facility], Partial fill upon patient request if the prescription isfor a schedule II opioid drug., 167.6, cm, ... Start Date: 06/19/21 Stop Date: 07/19/21 Status: Orderedlidocaine 5% topical film 1 patch, Topically, Daily, PRN Pain , Mild, remove after 12 hours, # 13 each, 0 Refills, Maintenance, 04/19/21 11:26:00 EST, Film, [facility]/pharmacy #[id number], Partial fill upon patient request if the prescription is for a schedule II opioid drug., 1 patch Top... Start Date: 04/19/21 Status: Orderedlisinopril 5 mg oral tablet 5 mg, 1, tablet, By Mouth, Daily, # 30 tablet, Refills 0, Tot. Refills 0, Maintenance, 07/14/21 16:28:00 EDT, Route to Pharmacy Electronically, [facility]/pharmacy #[id number], Partial fill upon patient request if [...] 0 Refills, Maintenance, 03/31/21 14:26:00 EST, Tablet, [facility]/pharmacy #[id number], Partial fill... Start Date: 03/31/21 Status: OrderedoxyCODONE 5 mg oral tablet 5 mg, 1, tablet, By Mouth, Every 6 hours, PRN, Refills 0, Tot. Refills 0, Pain , Severe Start Date: 06/09/21 Status: OrderedPen [place], 30 G x 8 mm BD Ultra [...] Refills, Maintenance, 07/24/21 14:28:00 EDT, Chew Tablet, [facility]/pharmacy #[id number], Partial fill upon patient request if [...] 2(Confirmed)1 Active Hypertension(Confirmed) Active Care Coordination [facility], Hakan Active Jeanne, CC (Confirmed) delivery(Confirmed) Active delivery(Confirmed) Active 1Not seem at [facility] since 08/12/2016. Multiple no show in our center. She is seen by other provider Dr Matt Gutierrez by pharmacy records. Social History Social History Type Response Smoking Status Never (less than 100 in life time) entered on: 04/23/21 Sex
--- OUTSIDE RECORDS SUMMARY | 2022-03-31 18:23 | XMS_ITS | Continuity of Care Document ---
:1990 Author Organization [facility] Address [address] [place] [id number]- Care Team Providers Name Role Phone Abdon Beard MD Primary Care Physician Encounter [facility] Date(s): 03/30/21 - 03/31/[address] [address]- Discharge Disposition: A-D/C Walkout Attending Physician: Not [...] '[id number] Note: TD4 Admin Note: unknown exact [id number] Note: unknown exact date Medications amLODIPine 10 mg oral tablet 10 mg, 1, tablet, By Mouth, Daily, # 30 tablet, Refills 5, Tot. Refills 5, Maintenance, 03/31/21 14:26:00 EST, Route to Pharmacy Electronically, [facility]/pharmacy #[id number], Partial fill upon patient request ifthe prescription is for a schedule II opioid drug... Start Date: 03/31/21 Status: Orderedcephalexin monohydrate 500 mg oral capsule 1 capsule = 500 mg, By Mouth, Every 12 hours, TO START ON 03/12/21, TO PREVENT INFECTION FROM RETURNING, # 180 capsule, 0 Refills, Acute 06/10/21 15:59:00 EDT, 02/28/21 15:59:00 EST, Capsule, [facility], Partial fill upon patient request... Start Date: 02/28/21 Stop Date: 06/10/21 Status: Ordereddiclofenac 1% topical gel = 2 Gm, Topically, 4 times a day, # 112 Gm, 0 Refills, Maintenance, 02/05/21 12:34:00 EST, Gel, [facility], Partial fill upon patient [...] 1 Refills, Maintenance, 03/26/21 16:17:00 EST, Tablet, [facility]/pharmacy #[id number], Partial fill upon patient [...] Refills, Maintenance, 11/17/20 10:19:00 EDT, Tablet, [facility]/pharmacy #[id number], Partial fillupon patient request if the prescription is for a... Start Date: 11/17/20 Status: OrderedLevemir FlexTouch 100 units/mL subcutaneous solution See Instructions, Take 40 units once daily. . 90-day supply., # 45 mL, 3 Refills, Maintenance,11/17/20 10:20:00 EDT, [facility]/pharmacy #[id number], Stop Lantus. Start Levemir., 170, cm, 03/05/20 14:05:00 EST, Height, 82, kg, 03/05/20 14:53:00 EST, Dry Weight Start Date: 11/17/20 Status: OrderedMetoprolol Tartrate 25 mg oral tablet 1 tablet = 25 mg, By Mouth, 2 times a day, 0 Refills, Maintenance, 02/03/21 9:49:00 EST, Tablet, ; Start Date: 02/03/21 Status: Orderednitroglycerin 0.4 mg sublingual tablet 1 [...] Refills, Maintenance, 11/17/20 10:20:00 EDT, Solution, [id number], Partial fill upon patient request if the prescription is for a schedule II op... Start Date: 11/17/20 Status: Orderedsertraline 25 mg oral tablet 1 [...] Obese class I(Confirmed) Active Care Coordination [facility], [place] [facility], CC (Confirmed) delivery(Confirmed) Active delivery(Confirmed) Active 1Not seem at [facility] since 08/12/2016. Multiple no show in our center. She is seen by other provider Dr Matt Gutierrez by pharmacy records. 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 No N V D. 10 10 chest pain, shortness of breath and dizziness reported. Patient is moaning and crying in the wheelchair. Pt moving all ext purposefully.; Reason: Other:; Chest Pain; Clinical Question(s): Other: COMPARISON: None. FINDINGS: LINES AND TUBES: None. LUNGS AND PLEURA: Clear lungs. Normal pulmonary vascularity. No pleural effusion. No pneumothorax. HEART, MEDIASTINUM AND EVERT: Heart is normal in size. Normal upper mediastinal and hilar contour. BONES AND SOFT TISSUES: No acute abnormality. IMPRESSION: No acute abnormality. WSN: [id number] Ordering Physician: Fernando Hernandez Dictated By: Apollo Drew MD Dictated Date/Time: 03/30/21 10:56 p Reviewed By: Apollo Drew MD Signed By: Apollo Drew MD Signed Date/Time: 03/30/21 10:56 pm Transcribed By: ALEXIS Transcribed Date/Time: 03/30/21 10:55 pm Vital Signs Most recent to oldest [Reference Range]: 1 2 Oxygen Saturation [94-100 %] 99 % 100 % (03/30/21 10:38 PM) (03/30/21 10:08 PM) Pulse Rate [55-90 bpm] 97 bpm 96 bpm *H* *H* (03/30/21 10:38 PM) (03/30/21 10:08 PM) Blood Pressure [90-138/55-84 mm Hg] 165/92 mm Hg 124/ 87 mm Hg *H* (03/30/21 10:08 PM) (03/30/21 10:38 PM) Respiratory Rate [16-30 br/min] 22 br/min 22 br/mi n (03/30/21 10:38 PM) (03/30/21 10:08 PM) Temperature [96.8-100.4 DegF] 98 DegF (03/30/21 10:08 PM) Mode of Delivery (Oxygen) Room air Room air (03/30/21 10:38 PM) (03/30/21 10:08 PM) Blood pressure sites Arm, right Arm, right (03/30/21 10:38 PM) (03/30/21 10:08 PM) Temperature Route Oral (03/30/21 10:08 PM) Social History Social History Type Response Smoking Status Never smoker entered on: 03/28/17 Sex
--- OUTSIDE RECORDS SUMMARY | 2022-03-31 18:23 | XMS_ITS | Continuity of Care Document ---
:1990 Author Organization [facility] Address [address] [place] [id number]- Care Team Providers Name Role Phone Abdon Beard MD Primary Care Physician Encounter [facility] Date(s): 01/25/21 - 02/24/[address] [address]- Attending Physician: Michael Marquez Admitting Physician: AdmMichael coyle Referring Physician: AdmtrMichael Allergies, Adverse Reactions, Alerts Substance Reaction Severity [...] '[id number] Note: TD4 Admin Note: unknown exact [id number] Note: unknown exact date Medications amLODIPine 10 mg oral tablet 1 tablet = 10 mg, By Mouth, Daily, 0 Refills, Maintenance, 02/03/21 9:50:00 EST, Tablet, ; Start Date: 02/03/21 Status: Orderedbedside commode bedside commode, See Instructions, # 1 each, Refills 0, Tot. 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 Refills 0, Maintenance, Use to monitor blood lgucose levels [facility]: [id number] E10.9, 04/06/20 12:07:00 EST, Supply, 170, cm, 03/05/20 14:05:00 EST, Height, 82, kg, 03/05/20 14:53:00... Start Date: 04/06/20 Status: OrderedDEXCOM G6 SENSOR, 3 PACK DEXCOM G6 SENSOR, 3 PACK, See Instructions, # 3 each, Refills 3, Tot. Refills 3, Maintenance, Use tomonitor blood sugar. E10.9 [facility] [id number], 07/16/20 14:20:00 EDT, Supply Start Date: 07/16/20 Status: OrderedDEXCOM G6 TRANSMITTER DEXCOM G6 TRANSMITTER, See Instructions, # 1 each, Refills 3, Tot. Refills 3, Maintenance, DEXCOM [id number], 07/16/20 14:20:00 EDT, Supply Start Date: 07/16/20 Status: Ordereddiclofenac 1% topical gel = 2 Gm, Topically, 4 times a day, # 112 Gm, 0 Refills, Maintenance, 02/05/21 12:34:00 EST, Gel, [facility], Partial fill upon patient request if the prescription is for a schedule II opioid drug., 170, cm, 03/05/20 14:05:00 EST, Height,... Start Date: 02/05/21 Stop Date: 02/19/21 Status: OrderedDME shower chair DME shower chair, See Instructions, # 1 each, Refills 0, Tot. Refills 0, Maintenance, DM E 11.9, 11/14/17 17:17:48 EDT, Compound Start Date: 11/14/17 Status: Ordereddoxycycline hyclate 100 mg oral capsule 1 capsule = 100 mg, By Mouth, 2 times a day, 0 Refills, Maintenance, 02/03/21 9:49:00 EST, Capsule, ; Start Date: 02/03/21 Stop Date: 02/13/21 Status: Orderedferrous sulfate 325 mg oral tablet 1 tablet = 325 mg, By Mouth, Daily, Maintenance, 02/03/21 16:48:00 EST, Tablet, ; Start Date: 02/03/21 Status: OrderedFreestyle Lite Lancets See Instructions, # [...] OrderedFreestyle Lite Test Strips See Instructions, # 450 each, Refills 3, Tot. Refills 3, Maintenance, Use to check blood sugar 5 times daily. E11.65. 90-day supply., 11/17/20 10:21:00 EDT, Compound, 170, cm, 03/05/20 14:05:00 EST, Height, 82, kg, 03/05/20 14:53:00 EST, Dry Weight Start Date: 11/17/20 Stop Date: 03/17/21 Status: Orderedisosorbide mononitrate 30 mg oral tablet, [...] 3 Refills, Maintenance, 11/17/20 10:19:00 EDT, Tablet, [facility]/pharmacy #[id number], Partial fillupon patient request if the prescription is for a... Start Date: 11/17/20 Status: OrderedLasix 40 mg oral tablet 40 mg, 1, tablet, By Mouth, Daily, # 30 tablet, Refills 0, Tot. Refills 0, Maintenance, 02/05/21 12:27:00 EST, Route to Pharmacy Electronically, [facility], Partial fill upon patient request if the prescription is for a schedule II opioi... Start Date: 02/05/21 Stop Date: 03/07/21 Status: OrderedLevemir FlexTouch 100 units/mL subcutaneous solution See Instructions, Take 40 units once daily. E11. 90-day supply., # 45 mL, 3 Refills, Maintenance,11/17/20 10:20:00 EDT, [facility]/pharmacy #[id number], Stop Lantus. Start Levemir., 170, [...] 11-21 units, 3 times daily before meals. E1165. 90-day supply., # 75 mL, 3 Refills, Maintenance, 11/17/20 10:20:00 EDT, Solution, [id number], Partial fill upon patient request if the prescription is for a schedule II op... Start Date: 11/17/20 Status: OrderedoxyCODONE 5 mg oral tablet 5 mg, 1, tablet, By Mouth, Every 6 hours, PRN, Refills 0, Tot. Refills 0, Maintenance, as needed forpain, 02/03/21 16:52:00 EST, ; Start Date: 02/03/21 Status: OrderedPotassium Chloride (Eqv-K-Tab) 20 mEq oral tablet, extended release 1 tablet = 20 mEq, By Mouth, Daily, # 14 tablet, 0 Refills, Maintenance, 02/05/21 12:28:00 EST, [facility], Partial fill upon patient request if the prescription is for a schedule II opioid drug., 170, cm, 03/05/20 14:05:00 EST, Height,... Start Date: 02/05/21 Stop Date: 02/19/21 Status: OrderedRobitussin DM Liquid 10 mL, By Mouth, PRN Cough, every 4-8 hours, Maintenance, 02/03/21 16:55:00 EST, Syrup, ; Start Date: 02/03/21 Status: Orderedsertraline 25 mg oral tablet 1 [...] type 2(Confirmed)1 Active Hypertension(Confirmed) Active Care Coordination [facility], [place] [facility] [place], CC (Confirmed) delivery(Confirmed) Active delivery(Confirmed) Active 1Not seem at [facility] since 08/12/2016. Multiple no show in our center. She is seen by other provider Dr Matt Gutierrez by pharmacy records. Vital Signs Most recent to oldest [Reference Range]: 1 Height 173.5 cm (04/13/15 4:09 PM) Social History Social History Type Response Smoking Status Never smoker entered on: 03/28/17 Sex
--- OUTSIDE RECORDS SUMMARY | 2022-03-31 18:23 | XMS_ITS | Continuity of Care Document ---
:1990 Author Organization [facility] [place] [address]- Care Team Providers Name Role Phone Chirag CARLSON, Abdon Primary Care Physician Encounter [facility] Date(s): 01/23/22 - 02/02/[address] [address] Encounter Diagnosis Acute exacerbation of congestive heart failure (Final) - 01/23/22 Discharge Disposition: A-D/C Home Attending Physician: Nehemias Hill MD Admitting Physician: Mihai Womack MD Referring Physician: Not on Staff, Referring [...] '[id number] Note: TD4 Admin Note: unknown exact [id number] Note: unknown exact date Medications Alcohol Pads [...] 12:03:00 EDT, Supply Start Date: 08/31/21 Status: OrderedCarvedilol 25 mg, Tablet, By Mouth, 02/02/22 9:00:00 EST Start Date: 02/02/22 Stop Date: 02/02/22 Status: Completedcarvedilol 25 mg oral tablet 25 mg, By Mouth, 2 times a day, # 60 tablet, Refills 1, Tot. Refills 1, Maintenance, 02/02/22 15:17:00 EST, Route to Pharmacy Electronically, [facility]/pharmacy #[id number], Partial fill upon patient request if the prescription is for a schedule II opioid drug.,... Start Date: 02/02/22 Status: OrderedColace sodium 100 mg oral capsule 100 mg, 1, capsule, By Mouth, 2 times a day, PRN, # 20 capsule, Refills 0, Tot. Refills 0, Maintenance, for constipation, 12/13/21 14:16:00 EDT, [id number] Partial fill upon patient request if the prescriptio... Start Date: 12/13/21 Status: OrderedCrestor 5 mg oral tablet 1 tablet = 5 mg, By Mouth, Daily, # 30 tablet, 0 Refills, Maintenance, 01/19/22 13:30:00 EST, Tablet, [facility]/pharmacy #[id number], Partial fill upon patient request if the prescription is for a schedule II opioid drug., 160, cm, 01/19/22 8:55:00 EST, Height, 9... Start Date: 01/19/22 Status: Orderedduloxetine 30 mg oral enteric coated capsule 1 capsule = 30 mg, By Mouth, Daily, # 30 capsule, 1 Refills, Maintenance, 02/02/22 15:18:00 EST, Capsule, [facility]/pharmacy #[id number], Partial fill upon [...] 03/15/22 Status: OrderedHYDROmorphone 2 mg oral tablet 2 mg, Tablet, By Mouth, Every 4 hours, Hold for: drowsiness, PRN for Pain , Severe, Routine, 02/02/22 11:53:00 EST Start Date: 02/02/22 Stop Date: 02/03/22 Status: DiscontinuedHYDROmorphone 2 mg oral tablet 1 tablet = 2 mg, By Mouth, Every 6 hours, PRN Pain , Severe, for 3 days, # 12 tablet, 0 Refills, Acute 02/05/22 15:18:00 EST, 02/02/22 15:18:00 EST, Tablet, [facility]/pharmacy #[id number], Partial fill upon patient request if the [...] Refills, Maintenance, 12/19/21 16:07:00 EDT, [id number], 168, cm, 12/13/21 12:57:00 EDT, Height, 90, kg, 12/13/21 11:35:00 EDT, Dry Weight Start Date: 12/19/21 Status: OrderedNIFEdipine 60 mg oral tablet, extended release 60 mg, 1, tablet, By Mouth, Daily, # 30 tablet, Refills 0, Tot. Refills 0, Maintenance, 02/02/22 15:17:00 EST, Route to Pharmacy Electronically, [facility]/pharmacy #[id number], Partial fill upon patient request ifthe prescription is for a schedule II opioid drug... Start Date: 02/02/22 Status: OrderedNIFEdipine ER Tablet 90 mg, ER Tablet, By Mouth, 02/02/22 9:00:00 EST Start Date: 02/02/22 Stop Date: 02/02/22 Status: Completedpantoprazole 20 mg oral delayed release tablet 1 [...] Dry Weight Start Date: 08/24/21 Status: OrderedPen Pointblank, 30 G x 8 mm BD Ultra [...] Refills, Maintenance, 08/24/21 11:43:00 EDT, Inhaler, [facility]/pharmacy #[id number], Partial fill upon [...] 0 Refills, Maintenance, 02/02/22 15:22:00 EST, Tablet, [facility]/pharmacy #[id number], Partial fill [...] II Confirmed Active Care Coordination Confirmed Active [facility]CP, Hakan Angel, CC 1Managed by PCP. WEll controlled.2Self-manages. States currently stable. No medications.3Not seem at [facility] since 08/12/2016. Multiple no show in our center. She is seen by other provider Dr Matt Gutierrez by pharmacy records.4Managed by [id number] by PCP with Tylenol Results Orders for Microbiology Reports Name Date Urine Culture (URINE CULTURE) 01/24/22 Microbiology Reports TEST:Urine Culture STATUS:Auth (Verified) BODY SITE: SOURCE:URINE COLLECTED DATE/TIME:01/24/22 6:11 PMUrine Culture SPECIMEN DESCRIPTION : URINE SPECIAL REQUESTS : NONE CULTURE : >100,000 COL/ML ENTEROCOCCUS FAECALIS This isolate was identified using Maldi-TOF system These AST results were performed on the NuLabel ID and AST system REPORT STATUS : FINAL 01/27/2022 ORGANISM >100,000 COL/ML ENTEROCOCCUS FAECALIS This isolate was identified using Maldi-TOF system These AST results were performed on the LearnZillioncan ID and AST system METHOD MIN. INHIB. CONC. (MCG/ML) AMPICILLIN SUSCEPTIBLE CIPROFLOXACIN SUSCEPTIBLE NITROFURANTOIN SUSCEPTIBLE LEVOFLOXACIN SUSCEPTIBLE VANCOMYCIN SUSCEPTIBLE TETRACYCLINE RESISTANT GENTAMICIN SYNERGY ACTIVE IN SYNERGY STREPTOMYCIN SYNERGY ACTIVE IN SYNERGYRadiology Reports Exam Date Time Procedure Performing Provider Status 02/01/22 12:06 PM US Guide Needle Place Renal Kasia Au; Auth (Verified) Notes:(US Guide Needle Place Renal) Reason For Exam: Diagnostic;Diagnostic RESULT: US Guide Needle Place Renal ULTRASOUND GUIDANCE FOR RENAL BIOPSY Reason: Diagnostic; Diagnostic; Clinical Question(s): Other: IMAGING TECHNIQUE: fish technologist guidance was provided for biopsy of the right kidney. Biopsy by Dr. Siddiqi and Dr. Liriano of Nephrology service.?A radiologist was not in attendance. COMPARISON: 07/14/2021 FINDINGS: Several ultrasound images were obtained during and after kidney biopsy. Images show the biopsy needle passing into the parenchyma of the kidney. One pass was made. No postprocedural fluid collection or hematoma noted. IMPRESSION: Ultrasound guidance for renal biopsy. WSN: [id number] Ordering Physician: Cash Liriano Dictated By: Michele Nieto MD Dictated Date/Time: 02/01/22 1:41 pm Reviewed By: Michele Nieto MD Signed By: Michele Nieto MD Signed Date/Time: 02/01/22 1:41 pm Transcribed By: ALEXIS Transcribed Date/Time: 02/01/22 1:40 pm Exam Date Time Procedure Performing Provider Status 01/26/22 3:[address] Abdomen and Pelvis W/O Brittnee Barajas; Auth (Verified) Contrast Notes:(CT Abdomen and Pelvis W/O Contrast) Reason For Exam: unresolving n/v, and LUQ;PainRESULT: CT Abdomen and Pelvis W/O Contrast CT Abdomen and Pelvis W/O Contrast INDICATION/CLINICAL QUESTION: Unresolving nausea, vomiting, and LUQ pain; history of nonischemic cardiomyopathy with preeclampsia status post urgent section 12/09/2021 recent admission for CHFexacerbation. Clinical Question(s): Obstruction; TECHNIQUE: Spiral CT through the abdomen and pelvis without IV contrast formatted in 3 planes. The study was performed without oral contrast. Weight- based protocol using automatic tube modulation was used to optimize exposure parameters. CTDIvol Body: 20.30 mGy, DLP Body: 1141 mGy*cm. COMPARISON: 07/10/2021. FINDINGS: LUNG BASES: Small bilateral pleural effusions and basilar atelectasis have increased in the interval. Normal heart size, small pericardial effusion is slightly increased in the interval best seen on coronal imaging. LIVER: Unremarkable. GALLBLADDER: Postcholecystectomy changes. BILE DUCTS: No intra or extra hepatic bile duct dilation. SPLEEN: Normal in size and attenuation. PANCREAS: Unremarkable. ADRENAL GLANDS: Normal-appearing. KIDNEYS: No calculi or hydronephrosis. No suspicious masses on this noncontrast examination. BLADDER: Mild bladder wall thickening improved compared to previous, no surrounding soft tissue stranding. REPRODUCTIVE ORGANS: Somewhat bulky appearing uterus compared to previous examination likely evolving post status. No focal fluid collections. STOMACH, SMALL AND LARGE BOWEL: Stomach is debris-containing, small bowel is nondilated. There is a paucity of stool throughout the colon. No surrounding pericolonic soft tissue stranding. APPENDIX: Normal-appearing. PERITONEUM, OMENTUM AND MESENTERY: No ascites or pneumoperitoneum. No omental or mesenteric lesions. VASCULATURE: Normal. No aneurysm. No evidence of venous thrombosis. LYMPH NODES: Mild retroperitoneal adenopathy has improved in the interval. Largest node just inferior to the left renal vein measuring 8 mm short axis dimension previously 1.5 cm short axis dimension. Inguinal adenopathy also appears improved. ABDOMINAL WALL: Postsurgical scarring suggesting a previous low transverse incision without evidenceof a drainable fluid collection. BONES: No acute abnormalities, no focal osseous lesions, mild degenerative changes at the L4/5 level. IMPRESSION: 1. Evolving postoperative/ changes without evidence of an associated complication. 2. Mild bladder wall thickening versus underdistention appears somewhat improved compared to previous exam. Clinical laboratory correlation for urinary tract infection recommended. 3. There is a paucity of stool throughout the colon suggesting evolving diarrheal illness without evidence of associated colitis or other inflammatory process. 4. Small bilateral pleural effusions and pericardial effusion slightly larger than previous. 5. Improving nonspecific adenopathy. WSN: [id number] Ordering Physician: Payal Tinoco Dictated By: Mathew More MD Dictated Date/Time: 01/26/22 4:17 pm Reviewed By: Mathew More MD Signed By: Mathew More MD Signed Date/Time: 01/26/22 4:17 pm Transcribed By: ALEXIS Transcribed Date/Time: 01/26/22 3:58 pm Exam Date Time Procedure Performing Provider Status 01/24/22 2:55 PM Abdomen AP Regine Richey; Auth (Verified) Notes:(Abdomen AP) Reason For Exam: Nausea/VomitingRESULT: XR Abdomen AP XR Abdomen AP 1 view INDICATION: Nausea, vomiting. Concern for obstruction. COMPARISON: None FINDINGS: Moderate stool retention but otherwise normal bowel gas pattern. No evidence of obstruction. No evidence of pneumoperitoneum. No organomegaly, masses or calcifications. No acute bone findings. Surgical clips in the right upper quadrant of the abdomen. IMPRESSION: Moderate stool retention but otherwise normal. I have personally reviewed the images and I agree with this report. WSN: [id number] Ordering Physician: Rocio Marcum Dictated By: Bonilla Fox MD Dictated Date/Time: 01/24/22 4:53 pm Reviewed By: Joshua Chun MD, V Signed By: Joshua Chun MD, V Signed Date/Time: 01/24/22 4:58 pm Transcribed By: ALEXIS Transcribed Date/Time: 01/24/22 4:49 pm Exam Date Time Procedure Performing Provider Status 01/23/22 1:26 PM Chest 2 Views Frontal and Indu Caldwell ; Auth (Verified) Lat Notes:(Chest 2 Views Frontal and Lat) Reason For Exam: Shortness of Breath RESULT: Chest 2 Views Frontal and Lat Chest 2 Views Frontal and Lat Reason: Shortness of Breath; Clinical Question(s): CHF COMPARISON: 01/16/2022, 11/27/2021 FINDINGS: LINES AND TUBES: None. LUNGS AND PLEURA: Unchanged small bilateral pleural effusions. Otherwise clear lungs. No pneumothorax. HEART, MEDIASTINUM AND EVERT: Heart is normal in size. Normal mediastinal and hilar contour. BONES AND SOFT TISSUES: No acute abnormality. IMPRESSION: No change. Bilateral small pleural effusions are unchanged since 01/16/2022 but were not present on 11/27/2021. WSN: [id number] Ordering Physician: Sharon Tucker Dictated By: Preet Gonzales MD Dictated Date/Time: 01/23/22 1:31 pm Reviewed By: Preet Gonzales MD Signed By: Preet Gonzales MD Signed Date/Time: 01/23/22 1:31 pm Transcribed By: ALEXIS Transcribed Date/Time: 01/23/22 1:28 pm Vital Signs Most recent to oldest 1 2 3 [Reference Range]: Weight 83.7 kg 83.3 kg 84.5 kg (02/02/22 6:17 AM) (02/01/22 6:53 AM) (01/31/22 6:3 2 AM) Oxygen Saturation [94-100 %] 97 % 97 % 99 % (02/02/22 2:30 PM) (02/02/22 7:51 AM) (02/02/22 1:5 4 AM) Pulse Rate [55-90 bpm] 84 bpm 81 bpm 81 bpm (02/02/22 2:30 PM) (02/02/22 9:09 AM) (02/02/22 7:5 1 AM) Blood Pressure [90-138/55-84 103/74 mm Hg 104/65 mm Hg 104 /65 mm Hg mm Hg] (02/02/22 2:30 PM) (02/02/22 9:09 AM) (02/02/22 9:0 9 AM) Respiratory Rate [16-30 18 br/min 20 br/min 18 br/mi n br/min] (02/02/22 2:30 PM) (02/02/22 11:49 AM) (02/02/22 7: 51 AM) Temperature [96.8-100.4 DegF] 97.4 DegF 97.3 DegF 97 .6 DegF (02/02/22 2:30 PM) (02/02/22 7:51 AM) (02/02/22 1:5 4 AM) Liters per Minute 2 L/min 2 L/min 2 L/min (01/27/22 12:00 PM) (01/27/22 8:00 AM) (01/27/22 4: 33 AM) Mode of Delivery (Oxygen) Room air Room air Room a ir (02/02/22 2:30 PM) (02/02/22 7:51 AM) (02/02/22 1:5 4 AM) Blood pressure sites Arm, left Arm, left Arm, left (02/02/22 2:30 PM) (02/02/22 7:51 AM) (02/02/22 1:5 4 AM) Temperature Route Temporal Temporal Temporal (02/02/22 2:30 PM) (02/02/22 7:51 AM) (02/02/22 1:5 4 AM) Weight Obtained Via Bed scale Bed scale Bed scale (02/02/22 6:17 AM) (02/01/22 6:53 AM) (01/30/22 4:3 1 AM) Social History Social History Type Response Smoking Status Never (less than 100 in life time) entered on: 08/22/21 Sex Admission evaluation note Klarissa Dupree MD: PERFORM Event Display: Admission Note Authored Date: [id number] Patient: ??SHEREEN TAYLOR ? Age:??31 Years?Sex:??Female?:??1990?? Chief Complaint/Reason for Consultation OAx3 coming from home here often x3 times in last 3 weeks w/ admission for this, for L under breast/flank pain rt CHF fluid build up. unable to sleep laying flat, BP increasing at home. History of Present Illness Shereen Taylor??is a 31-year-old??female with a medical history significant for nonischemic cardiomyopathy, heart failure with??mildly reduced ejection fraction 40 to 45%, chronic normocytic anemia, chronic kidney disease stage IV with baseline creatinine 3-4, insulin-dependent type 2 diabetes melitis, history of preeclampsia (urgent on 12/09/2021??for severe preeclampsia with demise), recent??admission for??CHF exacerbation,??who presented??to the emergency department??with??chest pain and flank pain. ?? Patient states that??she had an appointment with her primary care provider at 1 PM today; however,??she wanted to be seen earlier because??she had significant??chest pain and??left flank pain.?? She was told??to go to the emergency department.?? Her chest pain??originates??under her left breast??and r adiates??to the left side of her body. ??She describes the pain??as??significant pressure??with no relieving factors.?? She states that??movement??makes the pain worse.?? Patient's description of chestpain is similar to??that of??prior??admission. ??She also endorses??bilateral flank pain; however,??d enies dysuria, fevers, chills,??suprapubic pain, blood in her urine. ?? Upon arrival??to the ED,??patient was afebrile, hypertensive??259/116, tachycardic??at 103, saturating??well on room air. Labs revealed hemoglobin 8.2 around baseline, creatinine 2.8 around baseline, proBNP 75499, high-sensitivity troponin 63. ??EKG??unchanged from prior,??showed no ischemic changes.?? On bedside ultrasound,??patient had no B-lines in anterior lung reynolds, however had bilateral pleural effusions.?? Ultrasound revealed??no pericardial effusion??but had grossly decreased cardiac function. Chest x-ray showed bilateral small pleural effusions unchanged since 01/16. In the ED, she received??IV 40 mg Lasix,??Nitropaste, and was started on a nitro drip.?? Patient will be admitted for??acute on??chronic heart failure secondary to hypertensive??urgency,??transferred to [facility]. Review of Systems A full review of systems was completed and is otherwise negative except as mentioned in history of present illness. Objective Vital Signs?? Temperature: 98 DegF (01/23/22 13:50:00) Temperature Route: Oral (01/23/22 13:50:00) Pulse Rate:??98 bpm??High (01/23/22 15:25:00) Respiratory Rate: 20 br/min (01/23/22 15:25:00) Systolic Blood Pressure:??184 mm Hg??High (01/23/22 15:25:00) Diastolic Blood Pressure:??101 mm Hg??High (01/23/22 15:25:00) Blood pressure sites: Arm, left (01/23/22 14:05:00) Mean Arterial Pressure: 136 mm Hg (01/23/22 12:15:00) Pulse Pressure: 93 mm Hg (01/23/22 14:05:00) Oxygen Saturation: 96 % (01/23/22 15:25:00) Liters per Minute: 2 L/min (01/23/22 15:25:00) Mode of Delivery (Oxygen): Nasal cannula (01/23/22 15:25:00) Early Warning Score: 0 (01/23/22 15:29:13) ? Physical Exam Constitutional: Alert, in mild distress Mental Status: Oriented to person, place and time. Head: Normocephalic. Eyes: Pupils are equal, round and reactive to light. Extraocular muscles intact. Ear, Nose and Throat: Oropharynx clear, mucous membranes moist. Ears and nose without masses, lesions or deformities. Trachea midline. Neck: Supple, Full range of motion. Respiratory: Coarse breath sounds heard throughout all lung bases. Cardiovascular: Tachycardic,. S1 S2 regular. No murmurs, rubs or gallops. Tenderness to palpation over left 5th intercostal space. Gastrointestinal: Tenderness to palpation bilateral flank and periumbilical regions. ??Abdomen soft, non-distended. Normal bowel sounds. No pulsatile mass. No hepatosplenomegaly. Neurologic: Cranial nerves II-XII grossly intact. No focal neurological deficits.?? Moves all extremities spontaneously. Skin: No rashes or lesions. Musculoskeletal: Normal range of motion. Psychiatric: Appears frustrated Assessment/Plan Shereen Taylor??is a 31-year-old??female with a medical history significant for nonischemic cardiomyopathy, heart failure with??mildly reduced ejection fraction 40 to 45%, chronic normocytic anemia,chronic kidney disease stage IV with baseline creatinine 3-4, insulin-dependent type 2 diabetes melitis, history of preeclampsia (urgent on 12/09/2021??for severe preeclampsia with demise), recent??admission for??CHF exacerbation,??who presented??to the emergency department??with??chest pain and flank pain, found to??have??hypertensive urgency, started on nitro drip and [facility] ??Patient admitted for??acute on chronic heart failure??due to hypertensive urgency. ?? Acute on chronic heart failure with mildly reduced EF 40-45% Hypertensive urgency Heart failure exacerbation likely due to hypertensive urgency, BP 200s/100s. Elevated proBNP. EKG unchanged from prior, no ischemic changes. High-sensitivity troponin 63, still ruling in for ACS ?? Plan: ??? Nitro drip started ??? Transfer to??[facility] ??? Continue hydralazine 50 mg 3 times daily, lisinopril 10mg daily, metoprolol XL 200 mg daily, nifedipine 90 mg daily, rosuvastatin 5 mg daily ??? Continue??IV Lasix 40 mg??twice daily ??? Continue to trend troponin ?Monitor I/O, daily weights ? Insulin-dependent type 2 diabetes??mellitus Glucose range currently??104 to 122 ?? Plan: ??? Low-dose insulin sliding scale ??? Lantus 8 units ??? POC checks ??? Hypoglycemic emergency measures ? Chronic kidney disease stage IV Baseline creatinine 3-4. ??Likely due to hypertensive urgency and diabetes mellitus type 2 ?? Plan: ?Continue to monitor renal function ?Avoid nephrotoxins ? Bilateral flank pain Patient denies dysuria, fevers, chills, suprapubic tenderness. Physical exam revealed some periumbilical tenderness, no signs of peritonitis or rebound. ?? Plan ??? Scheduled Tylenol 650 mg Q4H ??? Oxycodone 5mg q6H ??? If patient has worsening abdominal pain, can consider a CT??for acute abdomen ? Chronic normocytic anemia: Hgb??8.2, around baseline. Continue to monitor. ?? Quality measures: CODE STATUS: Full VTE prophylaxis: Heparin subcu Diet:??Cardiac ? Klarissa Dupree MD Internal Medicine PGY1 Pager: [phone] ?? Patient seen and management discussed with attending physician,??Dr. Womack ?? Histories Allergies Allergies ?(Active and Proposed Allergies Only) morphine? (Severity: Unknown severity, Onset: Unknown) ?Reactions: Itching Zosyn? (Severity: Severe, Onset: Unknown) ?Reactions: angioedema ?Comments: Tolerates cefazolin vancomycin? (Severity: Unknown severity, Onset: Unknown) ?Reactions: Tightness in throat ?Comments: Tolerates again 05/21 ?Comments: Per chart: pt tolerated vanco on 05/18/21 ? Past Medical History/Problem List Active Problems??(16) Asthma Blindness of right eye Cardiac disease during , antepartum Care Coordination [facility], Hakan Angel, CC CKD (chronic kidney disease), stage III CKD stage 4 due to type 2 diabetes mellitus Depression Diabetes mellitus type 2 growth retardation, H/O Chest pain Heart failure with preserved ejection fraction, NYHA class I Hypertension Insulin dependent type 2 diabetes mellitus IUFD at 20 weeks or more of gestation Migraine Obese class II ? Past Surgical History delivery only;: 12/09/21 : 2009 D&C: 2008 Amputation of all right toes Amputation left great toe Amputation left pinky toe Repeat 2012 Amputation of right great toe Cholecystectomy Diabetic foot ulcer ? Social History Alcohol [...] Electronic Cigarette/Vaping Details:??Electronic Cigarette Use: Never. ? Psychosocial History ? Family History Mother (): CAD - Coronary artery disease; Diabetes mellitus type II; Hyperlipidemia; Hypertension; Myocardial infarction; Stroke Father: Asthma; Diabetes mellitus; Hyperlipidemia; Myocardial infarction Sister: Diabetes mellitus Brother: Diabetes mellitus ? Medications Home Medications Albuterol (ProAir HFA 90 mcg/inh inhalation aerosol)?See Instructions?as needed?Wheezing/Shortness of Breath?Inhale 2 puff every 4 to 6 hours as needed Docusate (Colace sodium 100 mg oral capsule)?100?Milligram?1?capsule?By Mouth?2 times a day?as needed?for constipation Docusate-Senna (Senexon-S 50 mg-8.6 mg oral tablet)?2?tab(s)?By Mouth?2 times a day?as needed?Constipation Durable Medical Equipment (Freestyle Lancets)?See Instructions?for 90?Days?use as directed for Type 2 Diabetes Mellitus Durable Medical Equipment (Alcohol Pads)?See Instructions?for 90?Days?use as directed for Type 1 Diabetes Mellitus Durable Medical Equipment (Freestyle Test Strips)?See Instructions?for 90?Days?use as directed for Type 1 Diabetes Mellitus Durable Medical Equipment (Pen Pointblank, 30 G x 8 mm BD Ultra Fine II)?See Instructions?for 90?Days?use as directed for Type 2 Diabetes Mellitus Durable Medical Equipment (Peak Flow Meter (Adult))?See Instructions?Use when wheezing or chest tightness. Call for peak flow less than 200. Durable Medical Equipment (Blood Pressure Monitor)?See Instructions?To test blood pressures 2x day. Severe HTN in Durable Medical Equipment (Freestyle Rogerio Monitor)?See Instructions?for 30?Days?Use asdirected for Type 2 Diabetes Mellitus Durable Medical Equipment (Freestyle Rogerio Sensor)?See Instructions?for 30?Days?Change every 14 days. ??Type 2 Diabetes Mellitus complicated by blindness Furosemide (Lasix 40 mg oral tablet)?40?Milligram?1?tablet?By Mouth?2 times a day hydrALAZINE (hydrALAZINE 50 mg oral tablet)?1?tab(s)?50?Milligram?By Mouth?3 times a day Insulin Detemir (Levemir FlexTouch 100 units/mL subcutaneous solution)?See Instructions?INJECT 8 UNITS SUBCUTANEOUSLY AT BEDTIME FOR 30 DAYS Insulin Lispro (Humalog Kwik Pen)?See Instructions?8 units with breakfast; 10 units with lunch; 26 units with dinner. ??Subcutaneous injection daily. Lisinopril (lisinopril 10 mg oral tablet)?10?Milligram?1?tablet?By Mouth?Daily Metoprolol (metoprolol 100 mg oral tablet, extended release)?200?Milligram?2?tablet?By Mouth?Daily Miscellaneous Rx (FREESTYLE LITE LANCETS)?See Instructions?GLUCOSE MONITORING 4 TIMES A DAY DURING Miscellaneous Rx (FREESTYLE LITE STRIPS)?See Instructions?GLUCOSE MONITORING 4 TIMES PER DAY DURING THE Miscellaneous Rx (FREESTYLE LITE GLUCOSE METER)?See Instructions?FOR GLUCOSE MONITORING DURING THE NIFEdipine (NIFEdipine (Eqv-Procardia XL) 90 mg oral tablet, extended release)?1?tab(s)?90?Milligram?By Mouth?Daily Oxycodone (oxyCODONE 5 mg oral tablet)?5?Milligram?1?tablet?By Mouth?Every 6 hours?as needed?for severe post-operative pain?as needed for pain Rosuvastatin (Crestor 5 mg oral tablet)?1?tab(s)?5?Milligram?By Mouth?Daily ? Results Abnormal Labs ?? BLOOD COUNT & DIFF ??Abs. Imm Gran ??0.0 k/mm3 () ??01/23/2022 12:04 ??Abs. Lymph ??0.7 k/mm3 (Low) ??01/23/2022 12:04 ??Abs. NRBC ??0.0 k/mm3 () ??01/23/2022 12:04 ??Hct ??25.6 % (Low) ??01/23/2022 12:04 ??Hgb ??8.2 Gm/dL (Low) ??01/23/2022 12:04 ??Imm Gran ??0.4 % () ??01/23/2022 12:04 ??Lymph % ??12.5 % (Low) ??01/23/2022 12:04 ??MCHC ??32.0 g/dL (Low) ??01/23/2022 12:04 ??Neut % ??78.0 % (High) ??01/23/2022 12:04 ??Nucleated RBC (Automated) ??0.0 #/100 WBC'S () ??01/23/2022 12:04 ??RBC ??2.83 m/mm3 (Low) ??01/23/2022 12:04 ??RDW-SD ??46.0 femtoliters () ??01/23/2022 12:04 ? CARDIAC ??High Sensitivity Troponin (HSTnT) ??63 ng/L (Critical) ??01/23/2022 12:04 ??Nt-Probnp ??59357 pg/mL (High) ??01/23/2022 12:04 ? CHEM GENERAL ??AG Ratio ??1.0 () ??01/23/2022 12:04 ??Albumin ??3.0 Gm/dL (Low) ??01/23/2022 12:04 ??BUN ??34 mg/dL (High) ??01/23/2022 12:04 ??Bicarbonate Level ??19 mmol/L (Low) ??01/23/2022 12:04 ??Calcium ??7.8 mg/dL (Low) ??01/23/2022 12:04 ??Chloride ??110 mmol/L (High) ??01/23/2022 12:04 ??Creatinine-Blood ??2.8 mg/dL (High) ??01/23/2022 12:04 ??Estimated GFR Creatinine ??22 ML/MIN/1.73 M2 () ??01/23/2022 12:04 ??Glucose Level ??113 mg/dL (High) ??01/23/2022 12:04 ??Protein, Total ??6.1 Gm/dL (Low) ??01/23/2022 12:04 ? ENDOCRINE/TUMOR MARKER ?? Serum Qual ??NEGATIVE mIU/mL () ??01/23/2022 12:04 ? HEME OTHER ??Hold Blue Top ??SPECIMEN DISCARDED AFTER 4 HOURS. () ??01/23/2022 12:04 ? Note: Critical results are displayed in red. ? Mihai Womack MD: PERFORM Event Display: Admission Note Authored Date: Attending Attestation:??I saw and examined the patient with the resident team and reviewed the charton the day of service. ??I have discussed the case and its management??with the resident as documented in the resident note on the day of service.??I agree with the resident's note and plan as documented. EKG study Event Display: ECG 12-Lead Authored Date: Please click on pdf link to open report Event Display: ECG 12-Lead Authored Date: Ventricular Rate: 89 BPM Atrial Rate: 89 BPM P-R Interval: 156 ms QRS Duration: 136 ms Q-T Interval: 408 ms QTC Calculation(Bazett): 496 ms R Adel: -33 degrees T Adel: 176 degrees Normal sinus rhythm Left axis deviation Right bundle branch block Abnormal ECG When compared with ECG of 24-JAN-2022 15:28, QRS axis Shifted left Nonspecific T wave abnormality now evident in Lateral leads Confirmed by FABIAN WHITTINGTON MD ([id number]) on 01/28/2022 1:12:39 PM [place]: FABIAN WHITTINGTON MD Event Display: EKG Authored Date: Event Display: ECG 12-Lead Authored Date: Please click on pdf link to open report Event Display: ECG 12-Lead Authored Date: Ventricular Rate: 107 BPM Atrial Rate: 107 BPM P-R Interval: 158 ms QRS Duration: 134 ms Q-T Interval: 382 ms QTC Calculation(Bazett): 509 ms P Adel: 68 degrees R Adel: 24 degrees T Adel: 30 degrees Sinus tachycardia Possible Left atrial enlargement Right bundle branch block Abnormal ECG When compared with ECG of 23-JAN-2022 12:31, No significant change was found Confirmed by MICHAEL QURESHI DO ([id number]) on 01/25/2022 4:32:56 PM [place]: MICHAEL QURESHI DO Event Display: ECG 12-Lead Authored Date: Please click on pdf link to open report Event Display: ECG 12-Lead Authored Date: Ventricular Rate: 100 BPM Atrial Rate: 100 BPM P-R Interval: 136 ms QRS Duration: 132 ms Q-T Interval: 400 ms QTC Calculation(Bazett): 516 ms P Adel: 53 degrees R Adel: 16 degrees T Adel: 73 degrees Normal sinus rhythm Right bundle branch block Abnormal ECG When compared with ECG of 18-JAN-2022 18:02, No significant change Confirmed by MAXWELL LÓPEZ ([id number]) on 01/24/2022 11:22:05 AM [place]: MAXWELL LÓPEZ Note Samantha Reynolds RN: PERFORM Event Display: Discharge/Transfer Note Hospital Authored Date: [id number] Nursing Discharge Note Entered On: 02/02/2022 18:10 EST Performed On: 02/02/2022 18:09 EST by Samantha Reynolds RN Nursing Discharge Note 2 Discharge Time : 02/02/2022 18:00 EST Discharge Level of Care at Discharge : Home/Intermediate/Foster Care Patient Left Unit Via : Wheelchair Patient Accompanied Off Unit with : Responsible adult DC Instructions Provided & Signed by Pt : Yes Patient Understands D/C Instructions : Yes Patient Instructions Discharge Signed : Yes Did Pt have Specialty Bed or Wound Vac : No Samantha Reynolds RN - 02/02/2022 18:09 Nehemias Parker MD: PERFORM Event Display: Discharge/Transfer Note Hospital Authored Date: [id number] Patient: ??SHEREEN TAYLOR ? Age:??31 Years?Sex:??Female?:??1990?? Patient Information Discharge Location: Primary Care Physician: Abdon Beard MD Admit Date/Time: 01/23/22 16:08 Discharge Disposition Discharge Disposition: Home ?? Discharge Diagnosis Acute exacerbation of congestive heart failure (I50.9) Blindness of right eye Diabetes mellitus type 2 ?? _ Discharge Medications Albuterol (ProAir HFA 90 mcg/inh inhalation aerosol)?See Instructions?as needed?Wheezing/Shortness of Breath?Inhale 2 puff every 4 to 6 hours as needed Carvedilol (carvedilol 25 mg oral tablet)?25?Milligram?By Mouth?2 times a day Docusate (Colace sodium 100 mg oral capsule)?100?Milligram?1?capsule?By Mouth?2 times a day?as needed?for constipation Docusate-Senna (Senexon-S 50 mg-8.6 mg oral tablet)?2?tab(s)?By Mouth?2 times a day?as needed?Constipation Duloxetine (duloxetine 30 mg oral enteric coated capsule)?1?capsule?30?Milligram?By Mouth?Daily Durable Medical Equipment (Freestyle Lancets)?See Instructions?for 90?Days?use as directed for Type 2 Diabetes Mellitus Durable Medical Equipment (Alcohol Pads)?See Instructions?for 90?Days?use as directed for Type 1 Diabetes Mellitus Durable Medical Equipment (Freestyle Test Strips)?See Instructions?for 90?Days?use as directed for Type 1 Diabetes Mellitus Durable Medical Equipment (Pen Pointblank, 30 G x 8 mm BD Ultra Fine II)?See Instructions?for 90?Days?use as directed for Type 2 Diabetes Mellitus Durable Medical Equipment (Peak Flow Meter (Adult))?See Instructions?Use when wheezing or chest tightness. Call for peak flow less than 200. Durable Medical Equipment (Blood Pressure Monitor)?See Instructions?To test blood pressures 2 x day. Severe HTN in Durable Medical Equipment (Freestyle Rogerio Monitor)?See Instructions?for 30?Days?Use as directed for Type 2 Diabetes Mellitus Durable Medical Equipment (Freestyle Rogerio Sensor)?See Instructions?for 30?Days?Change every 14 days. 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 1 units Callif less than 73996 - 249 ?? 2 units 250 - 299 ?? 3 units 300 - 349 ?? 4 units 350 - 399 ?? 5 units Call if greater than 400<< Sliding Scale Comments >> Miscellaneous Rx (FREESTYLE LITE LANCETS)?See Instructions?GLUCOSE MONITORING 4 TIMES A DAY DURING Miscellaneous Rx (FREESTYLE LITE STRIPS)?See Instructions?GLUCOSE MONITORING 4 TIMES PER DAY DURING THE Miscellaneous Rx (FREESTYLE LITE GLUCOSE METER)?See Instructions?FOR GLUCOSE MONITORING DURINGTHE NIFEdipine (NIFEdipine 60 mg oral tablet, extended release)?60?Milligram?1?tablet?By Mouth?Daily Pantoprazole (pantoprazole 20 mg oral delayed release tablet)?1?tab(s)?20?Milligram?By Mouth?Daily?for 7?Days Rosuvastatin (Crestor 5 mg oral tablet)?1?tab(s)?5?Milligram?By Mouth?Daily torsemide (torsemide 20 mg oral tablet)?1?tab(s)?20?Milligram?By Mouth?Daily ? Allergies Allergies ?(Active and Proposed Allergies Only) morphine? (Severity: Unknown severity, Onset: Unknown) ?Reactions: Itching Zosyn? (Severity: Severe, Onset: Unknown) ?Reactions: angioedema ?Comments: Tolerates cefazolin vancomycin? (Severity: Unknown severity, Onset: Unknown) ?Reactions: Tightness in throat ?Comments: Tolerates again 05/21 ?Comments: Per chart: pt tolerated vanco on 05/18/21 ? Future Appointments 2021 2:00 PM EST ?? With: Nena CARLSON, Babak Javier Where: [facility] [address] [place] [address]- Hospital Course Ms. Taylor is ??a 31-year-old??female with a medical history significant for nonischemic cardiomyopathy, HFrEF 40 to 45% (last echo 11/2021), chronic normocytic anemia,??CKD stage??IV with baseline Cr 3-4, insulin-dependent DMII , history of preeclampsia (urgent on 12/09/2021??for severe preeclampsia with demise), recent??admission for??CHF exacerbation,??who presented??to the emergency department??with??chest pain and flank pain, found to??have??hypertensive urgency, started on nitro drip and transferred??[facility]. ??Patient admitted for??acute on chronic heart failure??due to hypertensive urgency.?Hospital course has been complicated by worsening renal function.?? Renal biopsy done on??02/01. Pending pathology result.??PAteint is clinically stable and ready for discharge. She is advised to f/u with Renal clinic for biopsy result. All questions were answered. ?? Assessment and plan while in the hospital: ?? Acute on chronic heart failure with mildly reduced EF 40-45% Hypertensive urgency with end organ damage Heart failure exacerbation likely due to hypertensive urgency AHA:??C NYHA: III -Goal BP 130/80 torr -Resume torsemide 20mg PO daily on discharge -Nefedipine 60mg daily -Beta Anderson:??Carvedilol??25 mg??BID -daily weight ?? Nausea and Vomiting-improving Left sided abdominal pain - now symptom improved - monitor lytes ?? Normal QTcFra: Prolonged QTcB--however use??not recommended See AHA/ACC/HRS 2009 guidelines for Standardization and Interpretation of the Electrocardiogram Electrolytes within normal limits Monitor QTcH, QTcFra, or QTcR--not QTcB ?? Insulin-dependent type 2 diabetes??mellitus resume home meds ?? Chronic kidney disease stage IV Baseline creatinine 3-4, currently stable at 3.6 on this mornings labs Likely due to hypertensive urgency and diabetes mellitus type 2 Monitor kidney function Avoid nephrotoxins stable so far ?? Chronic normocytic anemia: Anemia of Kidney disease ?? Depression Adjustment disorder Started on??Cymbalta.?? Objective Vital Signs?? Temperature: 97.4 DegF (02/02/22 14:30:00) Temperature Route: Temporal (02/02/22 14:30:00) Pulse Rate: 84 bpm (02/02/22 14:30:00) Respiratory Rate: 18 br/min (02/02/22 14:30:00) Systolic Blood Pressure: 103 mm Hg (02/02/22 14:30:00) Diastolic Blood Pressure: 74 mm Hg (02/02/22 14:30:00) Blood pressure sites: Arm, left (02/02/22 14:30:00) Mean Arterial Pressure: 84 mm Hg (02/02/22 14:30:00) Pulse Pressure: 29 mm Hg (02/02/22 14:30:00) Oxygen Saturation: 97 % (02/02/22 14:30:00) Mode of Delivery (Oxygen): Room air (02/02/22 14:30:00) Early Warning Score: 6 (02/02/22 14:31:26) ? . Physical Exam General: NAD, AAOx4 Neck: no JVD, neck supple Cardio: normal S1 snd S2, no MRG, RRR Resp: CTAB Abd:??soft, NT, ND, no plantar splenomegaly Extremities: No peripheral edema Skin: No rashes or other abnormalities Consultants Devang CARLSON, Fernando??- Renal? Pending Results Add On Lab Order ordered on 01/24/2022 Add On Lab Order ordered on 02/02/2022 Add On Lab Order ordered on 02/02/2022 Antineutrophil Cytoplasmic Ab ordered on 01/28/2022 BUN ordered on 01/27/2022 C3 Complement ordered on 01/27/2022 C4 Complement ordered on 01/27/2022 CBC w/ Differential ordered on 01/27/2022 COVID-19 (2019 Novel Coronavirus) PCR ordered on 01/26/2022 COVID-19 (2019 Novel Coronavirus) PCR ordered on 02/02/2022 Creatinine ordered on 01/27/2022 Electrolytes ordered on 01/27/2022 Free [place] and Lambda Light Chains ordered on 01/27/2022 Immunofixation Serum ordered on 01/27/2022 Immunofixation Serum ordered on 01/28/2022 Pathology Tissue Request ordered on 02/01/2022 Urea Nitrogen Urine ordered on 01/28/2022 Patient Education Titles Discharge Instructions for Chronic Kidney Disease (CKD)?? Heart Failure: Making Changes to Your Diet?? Heart Failure: Tracking Your Weight?? Follow-Up Appointments Added Follow Up ?Time Frame ?Comments Fernando Siddiqi MD?1 week: call to discuss follow up visit Abdon Beard MD?1 week: call to discuss follow up visit Post Discharge Care Diet: Renal diet Activity: As Tolerated Code Status: ?? Full Resuscitation Discharge Prescriptions ?ePrescribed, ??02/02/22 15:01:00 EST Home Health Face to Face ^HomeHealthFTF Results Discharge Labs BLOOD COUNT & DIFF WBC 3.7 k/mm3 (Low)?? 02/02/2022 06:25 RBC 2.80 m/mm3 (Low)?? 02/02/2022 06:25 Hgb 7.7 Gm/dL (Low)?? 02/02/2022 06:25 Hct 24.3 % (Low)?? 02/02/2022 06:25 MCV 86.8 femtoliters ()?? 02/02/2022 06:25 MCH 27.5 pg ()?? 02/02/2022 06:25 MCHC 31.7 g/dL (Low)?? 02/02/2022 06:25 Platelet Count 164 k/mm3 ()?? 02/02/2022 06:25 RDW-SD 42.0 femtoliters ()?? 02/02/2022 06:25 MPV 12.8 femtoliters (High)?? 02/02/2022 06:25 Nucleated RBC (Automated) 0.0 #/100 WBC'S ()?? 02/02/2022 06:25 Abs. NRBC 0.0 k/mm3 ()?? 02/02/2022 06:25 Abs. Neut 5.6 k/mm3 ()?? 01/26/2022 08:37 Abs. Lymph 0.8 k/mm3 ()?? 01/26/2022 08:37 Abs. [place] 0.7 k/mm3 ()?? 01/26/2022 08:37 Abs. Eo 0.2 k/mm3 ()?? 01/26/2022 08:37 Abs. Baso 0.0 k/mm3 ()?? 01/26/2022 08:37 Neut % 76.8 % (High)?? 01/26/2022 08:37 Lymph % 10.3 % (Low)?? 01/26/2022 08:37 [place] % 10.0 % ()?? 01/26/2022 08:37 Eos % 2.2 % ()?? 01/26/2022 08:37 Baso % 0.3 % ()?? 01/26/2022 08:37 Imm Gran 0.4 % ()?? 01/26/2022 08:37 Abs. Imm Gran 0.0 k/mm3 ()?? 01/26/2022 08:37 ?? CARDIAC Nt-Probnp 49395 pg/mL (High)?? 01/23/2022 12:04 High Sensitivity Troponin (HSTnT) 73 ng/L (Critical)?? 01/24/2022 04:46 ?? CHEM GENERAL Sodium 135 mmol/L ()?? 02/02/2022 06:25 Potassium 4.2 mmol/L ()?? 02/02/2022 06:25 Chloride 99 mmol/L ()?? 02/02/2022 06:25 Bicarbonate Level 26 mmol/L ()?? 02/02/2022 06:25 Anion Gap 10 ()?? 02/02/2022 06:25 Glucose Level 147 mg/dL (High)?? 02/02/2022 06:25 Glucose, POC 122 mg/dL (High)?? 02/02/2022 11:26 BUN 43 mg/dL (High)?? 02/02/2022 06:25 Creatinine-Blood 3.7 mg/dL (High)?? 02/02/2022 06:25 Estimated GFR Creatinine 16 ML/MIN/1.73 M2 ()?? 02/02/2022 06:25 Calcium 8.1 mg/dL (Low)?? 02/02/2022 06:25 Calcium, Ionized pH Corrected 1.12 mmol/L (Low)?? 01/30/2022 07:16 Phosphorus 5.3 mg/dL (High)?? 01/30/2022 07:16 Magnesium 1.9 mg/dL ()?? 02/01/2022 02:01 Protein, Total 6.1 Gm/dL (Low)?? 01/23/2022 12:04 Albumin 3.0 Gm/dL (Low)?? 01/23/2022 12:04 AG Ratio 1.0 ()?? 01/23/2022 12:04 Alkaline Phosphatase 78 units/L ()?? 01/23/2022 12:04 Lipase 10 units/L (Low)?? 01/25/2022 15:17 AST (SGOT) 10 units/L ()?? 01/23/2022 12:04 ALT (SGPT) 7 units/L ()?? 01/23/2022 12:04 Bilirubin, Total 0.4 mg/dL ()?? 01/23/2022 12:04 Vitamin B12 Level 1213 pg/mL ()?? 02/02/2022 06:25 Folic Acid Level 7.3 ng/mL ()?? 02/02/2022 06:25 Iron Level 25 mcg/dL (Low)?? 02/02/2022 06:25 Iron Binding Capacity, Unsaturated 166 mcg/dL ()?? 02/02/2022 06:25 Iron Binding Capacity, Estimated Total 191 mcg/dL ()?? 02/02/2022 06:25 % Iron Saturation 13 % (Low)?? 02/02/2022 06:25 Ferritin Level 56 ng/mL ()?? 02/02/2022 06:25 ? COAG INR 1.0 ()?? 02/01/2022 02:01 Protime (PT) 10.7 seconds ()?? 02/01/2022 02:01 ?? ENDOCRINE/TUMOR MARKER Serum Qual NEGATIVE mIU/mL ()?? 01/23/2022 12:04 ? HEME OTHER Hold Lavender Top SPECIMEN DISCARDED AFTER 24 HOURS. ()?? 01/31/2022 09:32 Hold Blue Top SPECIMEN DISCARDED AFTER 4 HOURS. ()?? 01/23/2022 12:04 ?? IMMUNOLOGY GENERAL Complement C3 119 mg/dL ()?? 01/28/2022 09:35 Complement C4 25 mg/dL ()?? 01/28/2022 09:35 IgG 1016 mg/dL ()?? 01/28/2022 09:35 IgA 204 mg/dL ()?? 01/28/2022 09:35 IgM 88 mg/dL ()?? 01/28/2022 09:35 Free [place] Light Chains 107.08 mg/L (High)?? 01/28/2022 09:35 Free Lambda Light Chains 92.76 mg/L (High)?? 01/28/2022 09:35 Free KappaRatio 1.15 ()?? 01/28/2022 09:35 Glomerular Basement Memb <0.2 ()?? 01/28/2022 09:35 Anti-Inupiat DNA 3 ()?? 01/28/2022 09:35 Myeloperoxidase Ab <0.2 ()?? 01/28/2022 09:35 Anti PR3 <0.2 ()?? 01/28/2022 09:35 Anti-Cardiolipin IgA Ab <9 ()?? 01/28/2022 09:35 ? UA/URINALYSIS Appear/Color, Urine LIGHT YELLOW ()?? 01/23/2022 18:11 Specific Spade, Urine 1.012 ()?? 01/23/2022 18:11 pH, Urine 6.5 ()?? 01/23/2022 18:11 Albumin, Urine 3+ (Abnormal)?? 01/23/2022 18:11 Glucose, Urine 2+ (Abnormal)?? 01/23/2022 18:11 Ketones, Urine NEGATIVE ()?? 01/23/2022 18:11 Bilirubin, Urine NEGATIVE ()?? 01/23/2022 18:11 Hemoglobin, Urine 2+ (Abnormal)?? 01/23/2022 18:11 Nitrite, Urine NEGATIVE ()?? 01/23/2022 18:11 Leukocyte, Urine NEGATIVE ()?? 01/23/2022 18:11 Urobilinogen NORMAL mg/dL ()?? 01/23/2022 18:11 WBC's, Urine 4 /HPF ()?? 01/23/2022 18:11 RBC's, Urine 40 /HPF (High)?? 01/23/2022 18:11 Bacteria SLIGHT HPF (Abnormal)?? 01/23/2022 18:11 Squamous Epith 3 /HPF ()?? 01/23/2022 18:11 Hold Urine Culture Testing available 48 hours from time of collection. ()?? 01/23/2022 18:11 ?? URINE OTHER Creatinine, Urine Random 56.6 mg/dL ()?? 01/28/2022 09:13 Urea Nitrogen, Urine Random 177.5 mg/dL ()?? 01/28/2022 09:13 Protein, Total Urine Random 447 mg/dL ()?? 01/28/2022 09:13 TP/Cr Ratio 7.90 (High)?? 01/28/2022 09:13 Creatinine, Urine 56.6 mg/dL ()?? 01/28/2022 09:13 Malb/Creat Ratio 4299.3 mg/Gm (High)?? 01/28/2022 09:13 Urine Creat For Micro Alb 56.6 mg/dL ()?? 01/28/2022 09:13 Micro-Albumin 2433.4 mg/L (High)?? 01/28/2022 09:13 ?? VIROLOGY COVID-19 by RT-PCR NEGATIVE ()?? 01/23/2022 15:50 COVID-19 PCR Specimen Source NASAL ()?? 01/30/2022 19:30 COVID-19 PCR Result NEGATIVE ()?? 01/30/2022 19:30 ? Imaging(s) ?Chest 2 Views Frontal and Lat ?? 01/23/2022 13:26??by Preet Gonzales MD ?No change. Bilateral small pleural effusions are unchanged since 01/16/2022 but were notpresent on 11/27/2021. ? 32??minutes spent on discharge Samantha Reynolds RN: PERFORM Event Display: Patient Education/Instruction Authored Date: Inpatient Adult Discharge Instructions [address] [address] Name: SHEREEN TALYOR : 1990 Visit: 01/23/2022 16:08:00 Current Date: 02/02/2022 16:02 Account: [id number] Inpatient Adult Discharge Instructions We would like [...] and their families. Surveys are administered by [employer], [email or web address]. ?? If further treatment with your primary care physician or another doctor is recommended, it is important for you to keep the appointment. Call your primary care physician or return to the Emergency Department immediately if your condition worsens, fails to improve, or new symptoms develop. If you need to find a doctor, you can call [facility] for a referral at [phone] or toll free at [phone] or log in to [email or web address].. ?? You can view and manage your care through the patient portal or by using a health care calos of your choosing. [employer] is a website that allows you to securely view your medical information including your hospital discharge summary, office visit summaries, medications and follow-up visits. You can also request appointments, renew medications, and request access to your medical information using a health care calos of your choosing, or just ask a question. You can enroll at [email or web address] or register during your next office visit. You have been discharged from [facility], Patient Care Unit: M7. If you have any questions regarding these instructions after you leave, please call us and we will be happy to assist you. [facility] Your Care Team Attending Physician Sergio CARLSON, Nehemias Consulting Providers Indy Rae MD; Nico CARLSON, Ovidio Liriano MD, Cash J Discharging Providers Nehemias Hill MD Reason for Admission OAx3 coming from home here often x3 times in last 3 weeks w/ admission for this, for L under breast/flank pain rt CHF fluid build up. unable to sleep laying flat, BP increasing at home. Your Diagnosis Acute exacerbation of congestive heart failure Tests Performed Below is a partial list of the tests performed during your hospitalization. You may have had other tests and procedures not included in this list. Please discuss all test results with your provider. Anti DNA Ab Anti GBM Anticardiolipin Ab IgA Basic Metabolic Panel BUN C3 Complement C4 Complement Calcium Level CBC Comprehensive Metabolic Panel COVID-19 (Novel Coronavirus), Rapid PCR Creatinine Electrolytes FERRITIN FOLIC ACID Free [place] and Lambda Light Chains Glucose Level GLUCOSE POC High??Sensitivity??Troponin T HOLD BLUE TUBE HOLD LAVENDER TUBE Immunofixation Serum INR Ionized Calcium IRON & TIBC Lipase Lytes Magnesium Level Phosphorus Level Serum Qualitative ProBNP Protein/Creatinine Ratio Urine Troponin T, High Sensitivity UREA NITROGEN, URINE MG/DL Urinalysis w/hold for Urine Culture Urine Creatinine Urine Microalbumin Urine Urea Nitrogen?-- Results Pending -- Vasculitis Eval W/Reflex To ANCA VITAMIN B12 CT Abdomen and Pelvis W/O Contrast KUB US Guide Needle Place Renal XR Chest 2 Views Frontal and Lat ? You will be contacted within 72 hours with your results. Primary Care Provider Chirag CARLSON, [facility] Advance Directive Health Care Proxy on File Yes - Health Care Proxy No qualifying data available. Discharge Vitals Temperature: 97.4 DegF Weight: 83.7 kg Pulse Rate: 84 bpm ?? Respiratory Rate: 18 br/min ?? Systolic Blood Pressure: 103 mm Hg ?? Diastolic Blood Pressure: 74 mm Hg ?? Oxygen Saturation: 97 % ?? Studies Pending All tests and labs ordered during this hospital stay have been completed unless listed below. Pleasediscuss all pending results with your provider listed above in these instructions. ?? Add On Lab Order Antineutrophil Cytoplasmic Ab (ANCA) BUN C3 Complement C4 Complement CBC w/ Differential (COMPLETE CBC WITH DIFF) COVID-19 (2019 Novel Coronavirus) PCR Creatinine Electrolytes Free [place] and Lambda Light Chains Immunofixation Serum Pathology Tissue Request () Urea Nitrogen Urine (Urine Urea Nitrogen) What to do next Instructions From Your Doctor Discharge Orders Diet:??Renal diet Activity:??As Tolerated Code Status:?? Full Resuscitation Scheduled Follow-Up Appointments 2021 2:00 PM EST ?? With: Nena CARLSON, Babak Javier Where: [facility] [address] [place] [address]- You Need to Schedule the Following Appointments Follow Up with??Fernando Siddiqi MD When??Within 1 week: call to discuss follow up visit Where: [address] [facility] [place] [address]- Follow Up with??Abdon Beard MD When??Within 1 week: call to discuss follow up visit Where: [address] [place] [address]- Discharge Medications RANGEL ARLETTEEDEN :1990 Visit Date:01/23/2022 Medications: Please continue your medications until treatment is completed or stopped by your provider. Medications not listed below should be discontinued. Discuss any questions related to medications with your provider. What How Much When Why Instructions Next Dose New Carvedilol (carvedilol 25 mg oral tablet) 25 Milligram Oral Twice a day Refills: 1 Pickup at [facility]/pharmacy #02/02 6pm New Duloxetine (duloxetine 30 mg oral enteric coated capsule) 1 capsule Oral Daily Refills: 1 Pickup at [facility]/pharmacy #02/03 0800 New Hydromorphone (HYDROmorphone 2 mg oral tablet) 1 tab(s) Oral Every 6 hours as needed for Pain , Severe Duration: 3 Days Pickup at [facility]/pharmacy #2070 as needed New Pantoprazole (pantoprazole 20 mg oral delayed release tablet) 1 tab(s) Oral Daily Duration: 7 Days Pickup at [facility]/pharmacy #02/03 08 New torsemide (torsemide 20 mg oral tablet) 1 tab(s) Oral Daily Pickup at [facility]/pharmacy #02/03 08 Changed Insulin Detemir (Levemir FlexTouch 100 units/ mL subcutaneous solution) See instructions INJECT 4 UNITS SUBCUTANEOUSLY AT BEDTIME FOR 30 DAYS ?? before bed Changed Insulin Lispro (insulin lispro 100 u/ ml subcutaneous injection) 1-5 units Subcutaneous Injection 3 times a day before meals << Sliding Scale Comments >> 150 - 199 ?? 1 units Call if less than 70 200 - 249 ?? 2 units 250 - 299 ?? 3 units 300 - 349 ?? 4 units 350 - 399 ?? 5 units Call if greater than 400 << Sliding Scale Comments >> ?? Pickup at [facility]/pharmacy #2070 before dinner Changed NIFEdipine (NIFEdipine 60 mg oral tablet, extended release) 1 tab(s) Oral Daily Pickup at [facility]/pharmacy #02/03 0800 Unchanged Albuterol (ProAir HFA 90 mcg/ inh inhalation aerosol) See instructions Inhale 2 puff every 4 to 6 hours as needed ?? as needed Unchanged Docusate (Colace sodium 100 mg oral capsule) 1 capsule Oral Twice a day as needed for for constipation as needed Unchanged Docusate-Senna (Senexon-S 50 mg-8.6 mg oral tablet) 2 tab(s) Oral Twice a day as needed for Constipation as needed Unchanged Durable Medical Equipment (Alcohol Pads) See instructions Duration: 90 Days use as directed for Type 1 Diabetes Mellitus ?? Unchanged Durable Medical Equipment (Blood Pressure Monitor) See instructions To test blood pressures 2 x day. Severe HTN in ?? Unchanged Durable Medical Equipment (Freestyle Lancets) See instructions Duration: 90 Days use as directed for Type 2 Diabetes Mellitus ?? Unchanged Durable Medical Equipment (Freestyle Rogerio Monitor) See instructions Duration: 30 Days Use as directed for Type 2 Diabetes Mellitus ?? Unchanged Durable Medical Equipment (Freestyle Rogerio Sensor) See instructions Duration: 30 Days Change every 14 days. ?? 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 Unchanged Durable Medical Equipment (Freestyle Test Strips) See instructions Duration: 90 Days use as directed for Type 1 Diabetes Mellitus ?? Unchanged Durable Medical Equipment (Peak Flow Meter (Adult)) See instructions Use when wheezing or chest tightness. Call for peak flow less than 200. ?? Unchanged Durable Medical Equipment (Pen Pointblank, 30 G x 8 mm BD Ultra Fine II) See instructions Duration: 90 Days use as directed for Type 2 Diabetes Mellitus ?? Unchanged Miscellaneous Rx (FREESTYLE LITE GLUCOSE METER) See instructions DM2 (diabetes mellitus, type 2) FOR GLUCOSE MONITORING DURING THE ?? Unchanged Miscellaneous Rx (FREESTYLE LITE LANCETS) See instructions DM2 (diabetes mellitus, type 2) GLUCOSE MONITORING 4 TIMES A DAY DURING ?? Unchanged Miscellaneous Rx (FREESTYLE LITE STRIPS) See instructions DM2 (diabetes mellitus, type 2) GLUCOSE MONITORING 4 TIMES PER DAY DURING THE ?? Unchanged Rosuvastatin (Crestor 5 mg oral tablet) 1 tab(s) Oral Daily 02/02 bedtime Pharmacy Information [facility]/pharmacy #[id number]: [address] [place], [place] [id number] [phone] ?? What How Much When Comments Stop Taking Furosemide (Lasix 40 mg oral tablet) 1 tab(s) Oral Twice a day Stop Taking hydrALAZINE (hydrALAZINE 50 mg oral tablet) 1 tab(s) Oral 3 times a day Stop Taking Lisinopril (lisinopril 10 mg oral tablet) 1 tab(s) Oral Daily Stop Taking Metoprolol (metoprolol 100 mg oral tablet, extended release) 2 tab(s) Oral Daily Stop Taking Oxycodone (oxyCODONE 5 mg oral tablet) 1 tab(s) Oral Every 6 hours as needed for as needed for pain for severe post-operative pain ?? Test Results Below is a partial list of the most recent Laboratory test results done prior to this discharge. You may have had other tests and procedures not included in this list. Please discuss all test results with your provider. Anti DNA Ab (01/28/2022) ???Anti-Inupiat DNA - 3 Anti GBM (01/28/2022) ? ?Glomerular Basement Memb - <0.2 Anticardiolipin Ab IgA (01/28/2022) ? ?Anti-Cardiolipin IgA Ab - <9 Basic Metabolic Panel (02/01/2022) ???Sodium - 133 mmol/L???Potassium - 3.9 mmol/L???Chloride - 99 mmol/L???Bicarbonate Level - 25 mmol/L???Anion Gap - 9???Glucose Level - 114 mg/dL???BUN - 38 mg/dL???Creatinine-Blood - 3.6 mg/dL???Estimated GFR Creatinine - 17 ML/MIN/1.73 M2???Calcium - 8.0 mg/dL BUN (02/02/2022) ???BUN - 43 mg/dL C3 Complement (01/28/2022) ???Complement C3 - 119 mg/dL C4 Complement (01/28/2022) ???Complement C4 - 25 mg/dL Calcium Level (02/02/2022) ???Calcium - 8.1 mg/dL CBC (02/02/2022) ???WBC - 3.7 k/mm3???RBC - 2.80 m/mm3???Hgb - 7.7 Gm/dL???Hct - 24.3 %???MCV - 86.8 femtoliters???MCH - 27.5 pg???MCHC - 31.7 g/dL???Platelet Count - 164 k/mm3???RDW-SD - 42.0 femtoliters???MPV - 12.8 femtoliters???Nucleated RBC (Automated) - 0.0 #/100 WBC'S???Abs. NRBC - 0.0 k/mm3 Comprehensive Metabolic Panel (01/23/2022) ???Sodium - 141 mmol/L???Potassium - 4.0 mmol/L???Chloride - 110 mmol/L???Bicarbonate Level - 19 mmol/L???Anion Gap - 12???Glucose Level - 113 mg/dL???BUN - 34 mg/dL???Creatinine-Blood - 2.8 mg/dL???Estimated GFR Creatinine - 22 ML/MIN/1.73 M2???Calcium - 7.8 mg/dL???Protein, Total - 6.1 Gm/dL???Albumin - 3.0 Gm/dL???AG Ratio - 1.0???Alkaline Phosphatase - 78 units/L???AST (SGOT) - 10 units/L???ALT (SGPT) - 7 units/L???Bilirubin, Total - 0.4 mg/dL COVID-19 (Novel Coronavirus), Rapid PCR (01/23/2022) ???COVID-19 by RT-PCR - NEGATIVE Creatinine (02/02/2022) ???Creatinine-Blood - 3.7 mg/dL???Estimated GFR Creatinine - 16 ML/MIN/1.73 M2 Electrolytes (02/02/2022) ???Sodium - 135 mmol/L???Potassium - 4.2 mmol/L???Chloride - 99 mmol/L???Bicarbonate Level - 26 mmol/L???Anion Gap - 10 FERRITIN (02/02/2022) ???Ferritin Level - 56 ng/mL FOLIC ACID (02/02/2022) ???Folic Acid Level - 7.3 ng/mL Free [place] and Lambda Light Chains (01/28/2022) ???Free [place] Light Chains - 107.08 mg/L???Free Lambda Light Chains - 92.76 mg/L???Free [place]\LambdaRatio - 1.15 Glucose Level (02/02/2022) ???Glucose Level - 147 mg/dL GLUCOSE POC (02/02/2022) ???Glucose, POC - 122 mg/dL High??Sensitivity??Troponin T (01/24/2022) ???High Sensitivity Troponin (HSTnT) - 73 ng/L HOLD BLUE TUBE (01/23/2022) ???Hold Blue Top - SPECIMEN DISCARDED AFTER 4 HOURS. HOLD LAVENDER TUBE (01/31/2022) ???Hold Lavender Top - SPECIMEN DISCARDED AFTER 24 HOURS. Immunofixation Serum (01/28/2022) ???IgG - 1016 mg/dL???IgA - 204 mg/dL???IgM - 88 mg/dL???Immunofixation-Serum - Normal immunofixation pattern (No monoclonal protein detected) INR (02/01/2022) ???INR - 1.0???Protime (PT) - 10.7 seconds Ionized Calcium (01/30/2022) ???Calcium, Ionized pH Corrected - 1.12 mmol/L IRON & TIBC (02/02/2022) ???Iron Level - 25 mcg/dL???Iron Binding Capacity, Unsaturated - 166 mcg/dL???Iron Binding Capacity,Estimated Total - 191 mcg/dL???% Iron Saturation - 13 % Lipase (01/25/2022) ???Lipase - 10 units/L Lytes (01/30/2022) ???Sodium - 134 mmol/L???Potassium - 3.8 mmol/L???Chloride - 97 mmol/L???Bicarbonate Level - 25 mmol/L???Anion Gap - 12 Magnesium Level (02/01/2022) ???Magnesium - 1.9 mg/dL Phosphorus Level (01/30/2022) ???Phosphorus - 5.3 mg/dL Serum Qualitative (01/23/2022) ??? Serum Qual - NEGATIVE ProBNP (01/23/2022) ???Nt-Probnp - 68443 pg/mL Protein/Creatinine Ratio Urine (01/28/2022) ???Protein, Total Urine Random - 447 mg/dL???TP/Cr Ratio - 7.90???Creatinine, Urine - 56.6 mg/dL Troponin T, High Sensitivity (01/23/2022) ???High Sensitivity Troponin (HSTnT) - 57 ng/L UREA NITROGEN, URINE MG/DL (01/28/2022) ???Urea Nitrogen, Urine Random - 177.5 mg/dL Urinalysis w/hold for Urine Culture (01/23/2022) ???Appear/Color, Urine - LIGHT YELLOW???Specific Spade, Urine - 1.012???pH, Urine - 6.5???Albumin,Urine - 3+???Glucose, Urine - 2+???Ketones, Urine - NEGATIVE???Bilirubin, Urine - NEGATIVE???Hemoglobin, Urine - 2+???Nitrite, Urine - NEGATIVE???Leukocyte, Urine - NEGATIVE???Urobilinogen - NORMAL???WBC's, Urine - 4 /HPF???RBC's, Urine - 40 /HPF???Bacteria - SLIGHT???Squamous Epith - 3 /HPF???Hold Urine Culture - Testing available 48 hours from time of collection. Urine Creatinine (01/28/2022) ???Creatinine, Urine Random - 56.6 mg/dL Urine Microalbumin (01/28/2022) ???Malb/Creat Ratio - 4299.3 mg/Gm???Urine Creat For Micro Alb - 56.6 mg/dL???Micro-Albumin - 2433.4mg/L Vasculitis Eval W/Reflex To ANCA (01/28/2022) ? ?Myeloperoxidase Ab - <0.2? ?Anti PR3 - <0.2 VITAMIN B12 (02/02/2022) ???Vitamin B12 Level - 1213 pg/mL Allergies (NKA means No Known Allergies) Zosyn??(angioedema) morphine??(Itching) vancomycin??(Tightness in throat) Problems Active Problems??(17) Asthma?? Blindness of right eye?? Cardiac disease during , antepartum?? Care Coordination [facility], Hakan Angel, CC ?? CKD (chronic kidney disease), stage III?? CKD stage 4 due to type 2 diabetes mellitus?? Depression?? Diabetes mellitus type 2?? growth retardation, ?? H/O Chest pain?? Heart failure with preserved ejection fraction, NYHA class I?? Hypertension?? Insulin dependent type 2 diabetes mellitus?? IUFD at 20 weeks or more of gestation?? Migraine?? Obese class II? Education Materials Below is the list of Educational Leaflet Providered with your Discharge Instructions. Torsemide Oral Tablet?? Pantoprazole Delayed Release Oral Tablet?? Hydromorphone Oral Tablet?? Duloxetine Delayed Release Oral Capsule?? Carvedilol Oral Tablet?? Chronic Kidney Disease (CKD)?? Discharge Instructions for Chronic Kidney Disease (CKD)?? Heart Failure: Making Changes to Your Diet?? Heart Failure: Tracking Your Weight?? Valuables and Belongings I fully understand and agree that [facility] accepts no responsibility for all my [...] patient Date for Pt to Sign Valuables/Belongings: 01/23/22 18:26:00 ?? Other Discharge Information ? Pulmonary Rehab [...] are strongly encouraged to quit. Please call [facility] [employer] Link at [phone] or [phone]) or log in to [email or web address] for referrals to smoking cessation programs. ?? The National Suicide Prevention Hotline is available 18/09 if you or someone you know needs to find areason to keep living. By calling 2-770-370-Gennius (7073) you'll be connected to a skilled, trained counselor at a crisis center in your area. INPATIENT DISCHARGE INSTRUCTIONS SIGNATURE SHEREEN WATTS Location:[facility] Registration Date and Time:01/23/2022 16:08 [facility] Primary Care Physician: Chirag CARLSON, [facility], SHEREEN YUEN, have received the above patient education materials/instructions and have verbalized understanding. If ambulance or transport services are being used I further acknowledge being given a choice of service. ?? If you need to contact me, please call me at this number: . Patient/Marketing Proposal Coordinator Name: Patient/Marketing Proposal Coordinator Signature: Relationship to Patient: Witness Name/Signature: Date: Samantha Reynolds RN: PERFORM Event Display: Patient Education/Instruction Authored Date: [id number] Inpatient Adult Discharge Instructions [address] [address] Name: SHEREEN TAYLOR : 1990 Visit: 01/23/2022 16:08:00 Current Date: 02/02/2022 15:46 Account: [id number] Inpatient Adult Discharge Instructions We would like [...] and their families. Surveys are administered by [employer] ?? If further treatment with your primary care physician or another doctor is recommended, it is important for you to keep the appointment. Call your primary care physician or return to the Emergency Department immediately if your condition worsens, fails to improve, or new symptoms develop. If you need to find a doctor, you can call [facility] [employer] for a referral at [phone] or toll free at [phone]) or log in to [email or web address].. ?? You can view and manage your care through the patient portal or by using a health care calos of your choosing. [employer] is a website that allows you to securely view your medical information including your hospital discharge summary, office visit summaries, medications and follow-up visits. You can also request appointments, renew medications, and request access to your medical information using a health care calos of your choosing, or just ask a question. You can enroll at [email or web address] or register during your next office visit. You have been discharged from [facility], Patient Care Unit: M7. If you have any questions regarding these instructions after you leave, please call us and we will be happy to assist you. [facility] Your Care Team Attending Physician Sergio CARLSON, Nehemias Consulting Providers Indy Rae MD; Nico CARLSON, Ovidio Medina; Deandra CARLSON, Cash Regan Discharging Providers Sergio CARLSON, Nehemias Reason for Admission OAx3 coming from home here often x3 times in last 3 weeks w/ admission for this, for L under breast/flank pain rt CHF fluid build up. unable to sleep laying flat, BP increasing at home. Your Diagnosis Acute exacerbation of congestive heart failure Tests Performed Below is a partial list of the tests performed during your hospitalization. You may have had other tests and procedures not included in this list. Please discuss all test results with your provider. Anti DNA Ab Anti GBM Anticardiolipin Ab IgA Basic Metabolic Panel BUN C3 Complement C4 Complement Calcium Level CBC Comprehensive Metabolic Panel COVID-19 (Novel Coronavirus), Rapid PCR Creatinine Electrolytes FERRITIN FOLIC ACID Free [place] and Lambda Light Chains Glucose Level GLUCOSE POC High??Sensitivity??Troponin T HOLD BLUE TUBE HOLD LAVENDER TUBE Immunofixation Serum INR Ionized Calcium IRON & TIBC Lipase Lytes Magnesium Level Phosphorus Level Serum Qualitative ProBNP Protein/Creatinine Ratio Urine Troponin T, High Sensitivity UREA NITROGEN, URINE MG/DL Urinalysis w/hold for Urine Culture Urine Creatinine Urine Microalbumin Urine Urea Nitrogen?-- Results Pending -- Vasculitis Eval W/Reflex To ANCA VITAMIN B12 CT Abdomen and Pelvis W/O Contrast KUB US Guide Needle Place Renal XR Chest 2 Views Frontal and Lat ? You will be contacted within 72 hours with your results. Primary Care Provider Abdon Beard MD Advance Directive Health Care Proxy on File Yes - Health Care Proxy No qualifying data available. Discharge Vitals Temperature: 97.4 DegF Weight: 83.7 kg Pulse Rate: 84 bpm ?? Respiratory Rate: 18 br/min ?? Systolic Blood Pressure: 103 mm Hg ?? Diastolic Blood Pressure: 74 mm Hg ?? Oxygen Saturation: 97 % ?? Studies Pending All tests and labs ordered during this hospital stay have been completed unless listed below. Pleasediscuss all pending results with your provider listed above in these instructions. ?? Add On Lab Order Antineutrophil Cytoplasmic Ab (ANCA) BUN C3 Complement C4 Complement CBC w/ Differential (COMPLETE CBC WITH DIFF) COVID-19 (2019 Novel Coronavirus) PCR Creatinine Electrolytes Free [place] and Lambda Light Chains Immunofixation Serum Pathology Tissue Request () Urea Nitrogen Urine (Urine Urea Nitrogen) What to do next Instructions From Your Doctor Discharge Orders Diet:??Renal diet Activity:??As Tolerated Code Status:?? Full Resuscitation Scheduled Follow-Up Appointments 2021 2:00 PM EST ?? With: Nena CARLSON, Babak Javier Where: [facility] [address] [place] [address]- You Need to Schedule the Following Appointments Follow Up with??Fernando Siddiqi MD When??Within 1 week: call to discuss follow up visit Where: [address] [facility] [place] [address]- Follow Up with??Abdon Beard MD When??Within 1 week: call to discuss follow up visit Where: [address] [place] [address]- Discharge Medications SHEREEN TAYLOR :1990 Visit Date:01/23/2022 Medications: Please continue your medications until treatment is completed or stopped by your provider. Medications not listed below should be discontinued. Discuss any questions related to medications with your provider. What How Much When Why Instructions Next Dose New Carvedilol (carvedilol 25 mg oral tablet) 25 Milligram Oral Twice a day Refills: 1 Pickup at [facility]/pharmacy #[id number] New Duloxetine (duloxetine 30 mg oral enteric coated capsule) 1 capsule Oral Daily Refills: 1 Pickup at [facility]/pharmacy #[id number] New Hydromorphone (HYDROmorphone 2 mg oral tablet) 1 tab(s) Oral Every 6 hours as needed for Pain , Severe Duration: 3 Days Pickup at [facility]/pharmacy #[id number] New Pantoprazole (pantoprazole 20 mg oral delayed release tablet) 1 tab(s) Oral Daily Duration: 7 Days Pickup at [facility]/pharmacy #[id number] New torsemide (torsemide 20 mg oral tablet) 1 tab(s) Oral Daily Pickup at [facility]/pharmacy #[id number] Changed Insulin Detemir (Levemir FlexTouch 100 units/ mL subcutaneous solution) See instructions INJECT 4 UNITS SUBCUTANEOUSLY AT BEDTIME FOR 30 DAYS ?? Changed Insulin Lispro (insulin lispro 100 u/ ml subcutaneous injection) 1-5 units Subcutaneous Injection 3 times a day before meals << Sliding Scale Comments >> 150 - 199 ?? 1 units Call if less than 70 200 - 249 ?? 2 units 250 - 299 ?? 3 units 300 - 349 ?? 4 units 350 - 399 ?? 5 units Call if greater than 400 << Sliding Scale Comments >> ?? Pickup at [facility]/pharmacy #[id number] Changed NIFEdipine (NIFEdipine 60 mg oral tablet, extended release) 1 tab(s) Oral Daily Pickup at [facility]/pharmacy #[id number] Unchanged Albuterol (ProAir HFA 90 mcg/ inh inhalation aerosol) See instructions Inhale 2 puff every 4 to 6 hours as needed ?? Unchanged Docusate (Colace sodium 100 mg oral capsule) 1 capsule Oral Twice a day as needed for for constipation Unchanged Docusate-Senna (Senexon-S 50 mg-8.6 mg oral tablet) 2 tab(s) Oral Twice a day as needed for Constipation Unchanged Durable Medical Equipment (Alcohol Pads) See instructions Duration: 90 Days use as directed for Type 1 Diabetes Mellitus ?? Unchanged Durable Medical Equipment (Blood Pressure Monitor) See instructions To test blood pressures 2 x day. Severe HTN in ?? Unchanged Durable Medical Equipment (Freestyle Lancets) See instructions Duration: 90 Days use as directed for Type 2 Diabetes Mellitus ?? Unchanged Durable Medical Equipment (Freestyle Rogerio Monitor) See instructions Duration: 30 Days Use as directed for Type 2 Diabetes Mellitus ?? Unchanged Durable Medical Equipment (Freestyle Rogerio Sensor) See instructions Duration: 30 Days Change every 14 days. ?? 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 Unchanged Durable Medical Equipment (Freestyle Test Strips) See instructions Duration: 90 Days use as directed for Type 1 Diabetes Mellitus ?? Unchanged Durable Medical Equipment (Peak Flow Meter (Adult)) See instructions Use when wheezing or chest tightness. Call for peak flow less than 200. ?? Unchanged Durable Medical Equipment (Pen Pointblank, 30 G x 8 mm BD Ultra Fine II) See instructions Duration: 90 Days use as directed for Type 2 Diabetes Mellitus ?? Unchanged Miscellaneous Rx (FREESTYLE LITE GLUCOSE METER) See instructions DM2 (diabetes mellitus, type 2) FOR GLUCOSE MONITORING DURING THE ?? Unchanged Miscellaneous Rx (FREESTYLE LITE LANCETS) See instructions DM2 (diabetes mellitus, type 2) GLUCOSE MONITORING 4 TIMES A DAY DURING ?? Unchanged Miscellaneous Rx (FREESTYLE LITE STRIPS) See instructions DM2 (diabetes mellitus, type 2) GLUCOSE MONITORING 4 TIMES PER DAY DURING THE ?? Unchanged Rosuvastatin (Crestor 5 mg oral tablet) 1 tab(s) Oral Daily Pharmacy Information [facility]/pharmacy #[id number]: [address] [place], [place] [id number] [phone] ?? What How Much When Comments Stop Taking Furosemide (Lasix 40 mg oral tablet) 1 tab(s) Oral Twice a day Stop Taking hydrALAZINE (hydrALAZINE 50 mg oral tablet) 1 tab(s) Oral 3 times a day Stop Taking Lisinopril (lisinopril 10 mg oral tablet) 1 tab(s) Oral Daily Stop Taking Metoprolol (metoprolol 100 mg oral tablet, extended release) 2 tab(s) Oral Daily Stop Taking Oxycodone (oxyCODONE 5 mg oral tablet) 1 tab(s) Oral Every 6 hours as needed for as needed for pain for severe post-operative pain ?? Test Results Below is a partial list of the most recent Laboratory test results done prior to this discharge. You may have had other tests and procedures not included in this list. Please discuss all test results with your provider. Anti DNA Ab (01/28/2022) ???Anti-Inupiat DNA - 3 Anti GBM (01/28/2022) ? ?Glomerular Basement Memb - <0.2 Anticardiolipin Ab IgA (01/28/2022) ? ?Anti-Cardiolipin IgA Ab - <9 Basic Metabolic Panel (02/01/2022) ???Sodium - 133 mmol/L???Potassium - 3.9 mmol/L???Chloride - 99 mmol/L???Bicarbonate Level - 25 mmol/L???Anion Gap - 9???Glucose Level - 114 mg/dL???BUN - 38 mg/dL???Creatinine-Blood - 3.6 mg/dL???Estimated GFR Creatinine - 17 ML/MIN/1.73 M2???Calcium - 8.0 mg/dL BUN (02/02/2022) ???BUN - 43 mg/dL C3 Complement (01/28/2022) ???Complement C3 - 119 mg/dL C4 Complement (01/28/2022) ???Complement C4 - 25 mg/dL Calcium Level (02/02/2022) ???Calcium - 8.1 mg/dL CBC (02/02/2022) ???WBC - 3.7 k/mm3???RBC - 2.80 m/mm3???Hgb - 7.7 Gm/dL???Hct - 24.3 %???MCV - 86.8 femtoliters???MCH - 27.5 pg???MCHC - 31.7 g/dL???Platelet Count - 164 k/mm3???RDW-SD - 42.0 femtoliters???MPV - 12.8 femtoliters???Nucleated RBC (Automated) - 0.0 #/100 WBC'S???Abs. NRBC - 0.0 k/mm3 Comprehensive Metabolic Panel (01/23/2022) ???Sodium - 141 mmol/L???Potassium - 4.0 mmol/L???Chloride - 110 mmol/L???Bicarbonate Level - 19 mmol/L???Anion Gap - 12???Glucose Level - 113 mg/dL???BUN - 34 mg/dL???Creatinine-Blood - 2.8 mg/dL???Estimated GFR Creatinine - 22 ML/MIN/1.73 M2???Calcium - 7.8 mg/dL???Protein, Total - 6.1 Gm/dL???Albumin - 3.0 Gm/dL???AG Ratio - 1.0???Alkaline Phosphatase - 78 units/L???AST (SGOT) - 10 units/L???ALT (SGPT) - 7 units/L???Bilirubin, Total - 0.4 mg/dL COVID-19 (Novel Coronavirus), Rapid PCR (01/23/2022) ???COVID-19 by RT-PCR - NEGATIVE Creatinine (02/02/2022) ???Creatinine-Blood - 3.7 mg/dL???Estimated GFR Creatinine - 16 ML/MIN/1.73 M2 Electrolytes (02/02/2022) ???Sodium - 135 mmol/L???Potassium - 4.2 mmol/L???Chloride - 99 mmol/L???Bicarbonate Level - 26 mmol/L???Anion Gap - 10 FERRITIN (02/02/2022) ???Ferritin Level - 56 ng/mL FOLIC ACID (02/02/2022) ???Folic Acid Level - 7.3 ng/mL Free [place] and Lambda Light Chains (01/28/2022) ???Free [place] Light Chains - 107.08 mg/L???Free Lambda Light Chains - 92.76 mg/L???Free [place]\LambdaRatio - 1.15 Glucose Level (02/02/2022) ???Glucose Level - 147 mg/dL GLUCOSE POC (02/02/2022) ???Glucose, POC - 122 mg/dL High??Sensitivity??Troponin T (01/24/2022) ???High Sensitivity Troponin (HSTnT) - 73 ng/L HOLD BLUE TUBE (01/23/2022) ???Hold Blue Top - SPECIMEN DISCARDED AFTER 4 HOURS. HOLD LAVENDER TUBE (01/31/2022) ???Hold Lavender Top - SPECIMEN DISCARDED AFTER 24 HOURS. Immunofixation Serum (01/28/2022) ???IgG - 1016 mg/dL???IgA - 204 mg/dL???IgM - 88 mg/dL???Immunofixation-Serum - Normal immunofixation pattern (No monoclonal protein detected) INR (02/01/2022) ???INR - 1.0???Protime (PT) - 10.7 seconds Ionized Calcium (01/30/2022) ???Calcium, Ionized pH Corrected - 1.12 mmol/L IRON & TIBC (02/02/2022) ???Iron Level - 25 mcg/dL???Iron Binding Capacity, Unsaturated - 166 mcg/dL???Iron Binding Capacity,Estimated Total - 191 mcg/dL???% Iron Saturation - 13 % Lipase (01/25/2022) ???Lipase - 10 units/L Lytes (01/30/2022) ???Sodium - 134 mmol/L???Potassium - 3.8 mmol/L???Chloride - 97 mmol/L???Bicarbonate Level - 25 mmol/L???Anion Gap - 12 Magnesium Level (02/01/2022) ???Magnesium - 1.9 mg/dL Phosphorus Level (01/30/2022) ???Phosphorus - 5.3 mg/dL Serum Qualitative (01/23/2022) ??? Serum Qual - NEGATIVE ProBNP (01/23/2022) ???Nt-Probnp - 34446 pg/mL Protein/Creatinine Ratio Urine (01/28/2022) ???Protein, Total Urine Random - 447 mg/dL???TP/Cr Ratio - 7.90???Creatinine, Urine - 56.6 mg/dL Troponin T, High Sensitivity (01/23/2022) ???High Sensitivity Troponin (HSTnT) - 57 ng/L UREA NITROGEN, URINE MG/DL (01/28/2022) ???Urea Nitrogen, Urine Random - 177.5 mg/dL Urinalysis w/hold for Urine Culture (01/23/2022) ???Appear/Color, Urine - LIGHT YELLOW???Specific Spade, Urine - 1.012???pH, Urine - 6.5???Albumin,Urine - 3+???Glucose, Urine - 2+???Ketones, Urine - NEGATIVE???Bilirubin, Urine - NEGATIVE???Hemoglobin, Urine - 2+???Nitrite, Urine - NEGATIVE???Leukocyte, Urine - NEGATIVE???Urobilinogen - NORMAL???WBC's, Urine - 4 /HPF???RBC's, Urine - 40 /HPF???Bacteria - SLIGHT???Squamous Epith - 3 /HPF???Hold Urine Culture - Testing available 48 hours from time of collection. Urine Creatinine (01/28/2022) ???Creatinine, Urine Random - 56.6 mg/dL Urine Microalbumin (01/28/2022) ???Malb/Creat Ratio - 4299.3 mg/Gm???Urine Creat For Micro Alb - 56.6 mg/dL???Micro-Albumin - 2433.4mg/L Vasculitis Eval W/Reflex To ANCA (01/28/2022) ? ?Myeloperoxidase Ab - <0.2? ?Anti PR3 - <0.2 VITAMIN B12 (02/02/2022) ???Vitamin B12 Level - 1213 pg/mL Allergies (NKA means No Known Allergies) Zosyn??(angioedema) morphine??(Itching) vancomycin??(Tightness in throat) Problems Active Problems??(17) Asthma?? Blindness of right eye?? Cardiac disease during , antepartum?? Care Coordination [facility], Hakan Angel, CC ?? CKD (chronic kidney disease), stage III?? CKD stage 4 due to type 2 diabetes mellitus?? Depression?? Diabetes mellitus type 2?? growth retardation, ?? H/O Chest pain?? Heart failure with preserved ejection fraction, NYHA class I?? Hypertension?? Insulin dependent type 2 diabetes mellitus?? IUFD at 20 weeks or more of gestation?? Migraine?? Obese class II? Education Materials Below is the list of Educational Leaflet Providered with your Discharge Instructions. Discharge Instructions for Chronic Kidney Disease (CKD)?? Heart Failure: Making Changes to Your Diet?? Heart Failure: Tracking Your Weight?? Valuables and Belongings I fully understand and agree that [facility] accepts no responsibility for all my [...] patient Date for Pt to Sign Valuables/Belongings: 01/23/22 18:26:00 ?? Other Discharge Information ? Pulmonary Rehab [...] are strongly encouraged to quit. Please call [facility] at [phone] or [phone] ([phone]) or log in to [email or web address] for referrals to smoking cessation programs. ?? The National Suicide Prevention Hotline is available 18/09 if you or someone you know needs to find areason to keep living. By calling 4-415-431-Gennius (4699) you'll be connected to a skilled, trained counselor at a crisis center in your area. INPATIENT DISCHARGE INSTRUCTIONS SIGNATURE PAGE SHEREEN TAYLOR Location:[facility] Registration Date and Time:01/23/2022 16:08 [facility] Primary Care Physician: Chirag CARLSON, [facility], I SHEREEN TAYLOR, have received the above patient education materials/instructions and have verbalized understanding. If ambulance or transport services are being used I further acknowledge being given a choice of service. ?? If you need to contact me, please call me at this number: . Patient/Marketing Proposal Coordinator Name: Patient/Marketing Proposal Coordinator Signature: Relationship to Patient: Witness Name/Signature: Date: Samantha Reynolds RN: PERFORM Event Display: Patient Education Leaflets Authored Date: [id number] Torsemide Oral Tablet ?? [id number] Torsemide Oral Tablet Brands: Demadex Uses This medicine is used for the following purposes: ??? high blood pressure ??? swelling ?? Instructions This medicine may be taken with or without food. It is very important that you take the medicine at about the same time every day. It will work bestif you do this. Keep the medicine at room temperature. Avoid heat and direct light. This medicine will make you urinate more. If you have difficulty passing urine, please tell your doctor. It is important that you keep taking each dose of this medicine on time even if you are feeling well. If you forget to take a dose on time, take it as soon as you remember. If it is almost time for thenext dose, do not take the missed dose. Return to your normal dosing schedule. Do not take 2 doses of this medicine at one time. Drug interactions can change how medicines work or increase risk for side effects. Tell your healthcare providers about all medicines taken. Include prescription and glhk-cul-xasujro medicines, vitamins, and herbal medicines. Speak with your doctor or pharmacist before starting or stopping any medicine. Tell your doctor if symptoms do not get better or if they get worse. Talk to your doctor before taking other medicines, including aspirins and ibuprofen containing products. Speak to your doctor about which medicines are safe to use while you are on this medicine. Do not suddenly stop taking this medicine. Check with your doctor before stopping. This medicine may affect your blood sugar levels. If you have diabetes, talk to your doctor before changing the dose of your diabetes medicine. Keep all appointments for medical exams and tests while on this medicine. ?? Cautions Tell your doctor and pharmacist if you ever had an allergic reaction to a medicine. Do not use the medication any more than instructed. This medicine may cause dizziness or fainting, especially after exercising or in hot weather. Be very careful when standing or sitting up quickly. Your ability to stay alert or to react quickly may be impaired by this medicine. Do not drive or operate machinery until you know how this medicine will affect you. Please check with your doctor before drinking alcohol while on this medicine. Contact your doctor if you notice a change in the amount or darkening of your urine. Tell the doctor or pharmacist if you are , planning to be , or . Do not share this medicine with anyone who has not been prescribed this medicine. ?? Side Effects The following is a list of some common side effects from this medicine. Please speak with your doctor about what you should do if you experience these or other side effects. ??? constipation ??? dizziness ??? headaches ??? low blood pressure ??? increased urinary frequency Call your doctor or get medical help right away if you notice any of these more serious side effects: ??? confusion ??? drowsiness or sedation ??? ear problems (ringing in the ears, hearing loss) ??? fainting ??? numbness or tingling in hands and feet ??? fast or irregular heart beats ??? muscle cramps ??? nausea and vomiting ??? unusual or unexplained tiredness or weakness ??? urinating less often ??? difficulty or discomfort urinating A few people may have an allergic reaction to this medicine. Symptoms can include difficulty breathing, skin rash, itching, swelling, or severe dizziness. If you notice any of these symptoms, seek medical help quickly. ?? Extra Please speak with your doctor, nurse, or pharmacist if you have any questions about this medicine. ?? [email or web address] IMPORTANT NOTE: This document tells you briefly how to take your medicine, but it does not tell youall there is to know about it. Your doctor or pharmacist may give you other documents about your medicine. Please talk to them if you have any questions. Always follow their advice. There is a more complete description of this medicine available in [employer]. Scan this code on your smartphone or tablet or use the web address below. You can also ask your pharmacist for a printout. If you have any questions, please ask your pharmacist. The display and use of this drug information is subject to Terms of Use. Copyright(c) 2021 [employer]. ?? [employer]. All rights reserved. This information is not intended as a substitute for professional medical care. Always follow your healthcare professional's instructions. ??Samantha Reynolds RN: PERFORM Event Display: Patient Education Leaflets Authored Date: [id number] Pantoprazole Delayed Release Oral Tablet ?? [id number] Pantoprazole Delayed Release Oral Tablet Brands: Protonix Uses This medicine is used for the following purposes: ??? indigestion ??? inflammation of stomach ??? inflammation of the esophagus ??? stomach acid ??? stomach acid reflux ??? ulcers in stomach or intestines ??? ulcers in stomach or intestines ?? Instructions Swallow the medicine without crushing or chewing it. This medicine may be taken with or without food. Store at room temperature away from heat, light, and moisture. Do not keep in the bathroom. It is important that you keep taking each dose of this medicine on time even if you are feeling well. If you forget to take a dose on time, take it as soon as you remember. If it is almost time for thenext dose, do not take the missed dose. Return to your normal dosing schedule. Do not take 2 doses of this medicine at one time. Drug interactions can change how medicines work or increase risk for side effects. Tell your healthcare providers about all medicines taken. Include prescription and uosl-ako-etmlbvg medicines, vitamins, and herbal medicines. Speak with your doctor or pharmacist before starting or stopping any medicine. Tell your doctor if symptoms do not get better or if they get worse. This medicine may affect the strength of your bones. If you have or are at increased risk for developing osteoporosis (weakening of the bones), your doctor may recommend adding foods containing calcium and vitamin D while on this medicine. Please talk to your doctor for more information. You may need vitamin and mineral supplements while on this medicine. Please speak with your doctor or pharmacist. ?? Cautions Tell your doctor and pharmacist if you ever had an allergic reaction to a medicine. Do not use the medication any more than instructed. Contact your doctor if you notice a change in the amount or darkening of your urine. Please tell your doctor if you have moderate to severe diarrhea while on this medicine. Do not treat the diarrhea with qbnl-oom-pnvlogl diarrhea medicine. Tell the doctor or pharmacist if you are , planning to be , or . Do not share this medicine with anyone who has not been prescribed this medicine. Some patients have serious side effects from this medicine. Ask your pharmacist to show you the information from the Food and Drug Administration (FDA) and discuss it with you. ?? Side Effects The following is a list of some common side effects from this medicine. Please speak with your doctor about what you should do if you experience these or other side effects. ??? diarrhea ??? headaches ??? stomach upset or abdominal pain Call your doctor or get medical help right away if you notice any of these more serious side effects: ??? abdominal cramps ??? severe or persistent abdominal pain ??? severe, watery or bloody diarrhea ??? fever ??? numbness or tingling in hands and feet ??? fast or irregular heart beats ??? pain in the joints ??? muscle aches, spasms or abnormal movements ??? butterfly-shaped rash on nose and cheeks ??? seizures ??? blood in stool ??? unusual or unexplained tiredness or weakness A few people may have an allergic reaction to this medicine. Symptoms can include difficulty breathing, skin rash, itching, swelling, or severe dizziness. If you notice any of these symptoms, seek medical help quickly. ?? Extra Please speak with your doctor, nurse, or pharmacist if you have any questions about this medicine. ?? [email or web address] IMPORTANT NOTE: This document tells you briefly how to take your medicine, but it does not tell youall there is to know about it. Your doctor or pharmacist may give you other documents about your medicine. Please talk to them if you have any questions. Always follow their advice. There is a more complete description of this medicine available in [employer]. Scan this code on your smartphone or tablet or use the web address below. You can also ask your pharmacist for a printout. If you have any questions, please ask your pharmacist. The display and use of this drug information is subject to Terms of Use. Copyright(c) 2021 [employer]. ?? [employer]. All rights reserved. This information is not intended as a substitute for professional medical care. Always follow your healthcare professional's instructions. ??Samantha Reynolds RN: PERFORM Event Display: Patient Education Leaflets Authored Date: [id number] Hydromorphone Oral Tablet ?? [id number] Hydromorphone Oral Tablet Brands: Dilaudid Uses For pain. ?? Instructions This medicine may be taken with or without food. Store at room temperature away from heat, light, and moisture. Do not keep in the bathroom. Please ask your doctor, nurse, or pharmacist how to discard unused medicines safely. To reduce constipation, eat high fiber foods, drink plenty of water and exercise. Drug interactions can change how medicines work or increase risk for side effects. Tell your healthcare providers about all medicines taken. Include prescription and kptc-puu-niyqgjo medicines, vitamins, and herbal medicines. Speak with your doctor or pharmacist before starting or stopping any medicine. Tell your doctor if symptoms do not get better or if they get worse. ?? Cautions This medicine has an opioid. Opioids help many people but may cause addiction, especially if used for a long time. The addiction risk is higher if you have a substance use disorder (overuse of or addiction to drugs or alcohol). Ask your doctor about the benefits and risks. Ask your doctor or pharmacist if you should have naloxone on hand to treat opioid overdose. Teach your family or household members about the signs of an opioid overdose and how to treat it. If you stop this medicine suddenly, after using it regularly for a long time, you may have withdrawal symptoms. Your doctor may ask you to slowly reduce your dose before stopping it. Tell your doctor right away if you notice any symptoms of withdrawal. Withdrawal symptoms can include unusual sweating, watering eyes, runny nose, chills, stomach pain, diarrhea, yawning, muscle aches, irritability, restlessness, anxiety, trouble sleeping, or thoughts of suicide. Tell your doctor and pharmacist if you ever had an allergic reaction to a medicine. Do not use the medication any more than instructed. This medicine may cause dizziness or fainting, especially after exercising or in hot weather. Be very careful when standing or sitting up quickly. If possible, avoid using with marijuana or other medicines that can cause dizziness or drowsiness. These include allergy/cold products, muscle relaxers, sleep aids, and pain relievers. Your ability to stay alert or to react quickly may be impaired by this medicine. Do not drive or operate machinery until you know how this medicine will affect you. Do not drink beverages with alcohol while on this medicine. This medicine passes into breast milk. Ask your doctor before . This medicine can hurt a new baby in the womb. If you become while on this medicine, tell your doctor immediately. Your doctor may switch you to a different medicine. This medicine should be used with caution in patients with breathing difficulties. Call your doctor right away if you notice slow or shallow breathing. Do not share this medicine with anyone who has not been prescribed this medicine. Some patients have serious side effects from this medicine. Ask your pharmacist to show you the information from the Food and Drug Administration (FDA) and discuss it with you. ?? Side Effects The following is a list of some common side effects from this medicine. Please speak with your doctor about what you should do if you experience these or other side effects. ??? decreased appetite ??? constipation ??? dizziness or drowsiness ??? dry mouth ??? feeling of heat or flushing ??? nausea and vomiting ??? stomach upset or abdominal pain If you have any of the following side effects, you may be getting too much medicine. Please contactyour doctor to let them know about these side effects. ??? changes in memory, mood, or thinking ??? fainting ??? slow heartbeat Call your doctor or get medical help right away if you notice any of these more serious side effects: ??? decreased awareness or responsiveness ??? breathing interruption during sleep ??? shallow, irregular breathing ??? hallucinations (unusual thoughts, seeing or hearing things that are not real) ???fast or irregular heart beats ??? seizures ??? severe stomach or bowel pain ??? unusual or unexplained tiredness or weakness ??? difficulty or discomfort urinating ??? weight loss A few people may have an allergic reaction to this medicine. Symptoms can include difficulty breathing, skin rash, itching, swelling, or severe dizziness. If you notice any of these symptoms, seek medical help quickly. ?? Extra Please speak with your doctor, nurse, or pharmacist if you have any questions about this medicine. ?? [email or web address] IMPORTANT NOTE: This document tells you briefly how to take your medicine, but it does not tell youall there is to know about it. Your doctor or pharmacist may give you other documents about your medicine. Please talk to them if you have any questions. Always follow their advice. There is a more complete description of this medicine available in [employer]. Scan this code on your smartphone or tablet or use the web address below. You can also ask your pharmacist for a printout. If you have any questions, please ask your pharmacist. The display and use of this drug information is subject to Terms of Use. Copyright(c) 2021 [employer]. ?? [employer]. All rights reserved. This information is not intended as a substitute for professional medical care. Always follow your healthcare professional's instructions. ??[facility] , CIS S: TRANSCRIBE Michele Nieto MD: VERIFY Event Display: Result: Authored Date: ULTRASOUND GUIDANCE FOR RENAL BIOPSY Reason: Diagnostic; Diagnostic; Clinical Question(s): Other: IMAGING TECHNIQUE: fish technologist guidance was provided for biopsy of the right kidney. Biopsy by Dr. Siddiqi and Dr. Liriano of Nephrology service.?A radiologist was not in attendance. COMPARISON: 07/14/2021 FINDINGS: Several ultrasound images were obtained during and after kidney biopsy. Images show the biopsy needle passing into the parenchyma of the kidney. One pass was made. No postprocedural fluid collection or hematoma noted. IMPRESSION: Ultrasound guidance for renal biopsy. WSN: [id number] Ordering Physician: Cash Liriano Dictated By: Michele Nieto MD Dictated Date/Time: 02/01/22 1:41 pm Reviewed By: Michele Nieto MD Signed By: Michele Nieto MD Signed Date/Time: 02/01/22 1:41 pm Transcribed By: ALEXIS Transcribed Date/Time: 02/01/22 1:40 pm Event Display: Cardiac Rhythm Strips Authored Date: Event Display: Cardiac Rhythm Strips Authored Date: [facility] , CIS S: TRANSCRIPreet Gallegos MD: VERIFY Event Display: Result: Authored Date: Chest 2 Views Frontal and Lat Reason: Shortness of Breath; Clinical Question(s): CHF COMPARISON: 01/16/2022, 11/27/2021 FINDINGS: LINES AND TUBES: None. LUNGS AND PLEURA: Unchanged small bilateral pleural effusions. Otherwise clear lungs. No pneumothorax. HEART, MEDIASTINUM AND EVERT: Heart is normal in size. Normal mediastinal and hilar contour. BONES AND SOFT TISSUES: No acute abnormality. IMPRESSION: No change. Bilateral small pleural effusions are unchanged since 01/16/2022 but were not present on 11/27/2021. WSN: [id number] Ordering Physician: Sharon Tucker Dictated By: Preet Gonzales MD Dictated Date/Time: 01/23/22 1:31 pm Reviewed By: Preet Gonzales MD Signed By: Preet Gonzales MD Signed Date/Time: 01/23/22 1:31 pm Transcribed By: ALEXIS Transcribed Date/Time: 01/23/22 1:28 pm Hospital Progress note Deandra CARLSON, Cash Regan: PERFORM Event Display: Progress Note Hospital Authored Date: [id number] Patient: ??SHEREEN TAYLOR ? Age:??31 Years?Sex:??Female?:??1990? [facility] Progress Note ?? Attending:??Nehemias iHll MD Admission Date: 01/23/2022 ?? Subjective Patient seen and examined in the AM at bedside. No acute events overnight. Comfortably??laying in bed. In no acute distress. Urine output 1200 cc/hr?? Pending biopsy results. ?ROS: General: alert, awake, oriented. HEENT: no dizziness, no blurry vision, no headache, no sore throat Lung: no sob,no??SOTELO Cardio: no chest pain, no palpitations Abdomen: no nausea, no vomiting, no abdominal pain, no diarrhea : no dysuria, no hematuria. ? Objective Vital Signs (last 24 hrs) ?Last Charted Heart Rate Peripheral?81 bpm ??(FEB 02 09:09) Resp Rate?20 br/min ??(FEB 02 11:49) SBP?104 mm Hg ??(DEC 08 09:09) DBP?65 mm Hg ??(DEC 08 09:09) SpO2?97 % ??(FEB 02 07:51) Weight?83.7 kg ??(FEB 02 06:17) Intake?? Output?? Oral Fluids: 60 mL (18:00) Urine Voided: 600 mL (11:00) ?? Bladder Scan Volume: 679 mL (16:00) ? Intake/Output? 01/23 16:08 1208 07:00 12/07 07:00 1206 07:00 12/05 07:00 ?? 12 13:29 12/08 13:29 12/08 06:59 12/07 06:59 12/06 06:59 Intake ? 4940.1 ?0 ?230.0 ?480 ?660 Output ?79333 ?600 ? 1200 ?825 ? 1100 Net Total ?-8734.9 ? -600 ? -970.0 ? -345 ? -440 ? Urine Count ?7 ?0 ?0 ?2 ?1 ? Physical Exam General: NAD, AAOx4 HEENT: NCAT, MMM, right eye cataract Neck: no JVD, neck supple Cardio: normal S1 snd S2, no MRG, RRR Resp: CTAB Abdo:??NT, ND Extremities: No peripheral edema Skin: No rashes or other abnormalities Neuro: Grossly intact ? BLOOD COUNT & DIFF WBC 3.7 k/mm3 (Low)?? 02/02/2022 06:25 RBC 2.80 m/mm3 (Low)?? 02/02/2022 06:25 Hgb 7.7 Gm/dL (Low)?? 02/02/2022 06:25 Hct 24.3 % (Low)?? 02/02/2022 06:25 MCV 86.8 femtoliters ()?? 02/02/2022 06:25 MCH 27.5 pg ()?? 02/02/2022 06:25 MCHC 31.7 g/dL (Low)?? 02/02/2022 06:25 Platelet Count 164 k/mm3 ()?? 02/02/2022 06:25 RDW-SD 42.0 femtoliters ()?? 02/02/2022 06:25 MPV 12.8 femtoliters (High)?? 02/02/2022 06:25 Nucleated RBC (Automated) 0.0 #/100 WBC'S ()?? 02/02/2022 06:25 Abs. NRBC 0.0 k/mm3 ()?? 02/02/2022 06:25 ?? CHEM GENERAL Sodium 135 mmol/L ()?? 02/02/2022 06:25 Potassium 4.2 mmol/L ()?? 02/02/2022 06:25 Chloride 99 mmol/L ()?? 02/02/2022 06:25 Bicarbonate Level 26 mmol/L ()?? 02/02/2022 06:25 Anion Gap 10 ()?? 02/02/2022 06:25 Glucose Level 147 mg/dL (High)?? 02/02/2022 06:25 Glucose, POC 122 mg/dL (High)?? 02/02/2022 11:26 BUN 43 mg/dL (High)?? 02/02/2022 06:25 Creatinine-Blood 3.7 mg/dL (High)?? 02/02/2022 06:25 Estimated GFR Creatinine 16 ML/MIN/1.73 M2 ()?? 02/02/2022 06:25 Calcium 8.1 mg/dL (Low)?? 02/02/2022 06:25 Magnesium 1.9 mg/dL ()?? 02/01/2022 02:01 ?? COAG INR 1.0 ()?? 02/01/2022 02:01 Protime (PT) 10.7 seconds ()?? 02/01/2022 02:01 ?? No qualifying data available ? Assessment/Plan ?? This is a 31-year-old female with past medical history of nephrotic range CKD stage III/IV with a baseline creatinine hovering around 3???4, diabetic kidney disease, nonischemic cardiomyopathy, HFrEF (40-45%), hx of recent pre-eclampsia resulting in demise ( 12/09/21), admitted for management ofAcute CHF exacerbation 2/2 to hypertensive emergency. Found to have MYNOR on CKD for which Nephrology was consulted.? # MYNOR on CKD Stage 3/4 (baseline Creatinine 3-4) # Nephrotic range proteinuria # Diabetic kidney disease # HFrEF (40-45%) ?? Patient has had progressively worsening kidney for the past year or so. Has had multiple admissions for management of HTN emergency. She was diagnosed with with DM at the age of 12 and since then has been in insulin regimen. However the amount of proteinuria suggests an alternate diagnosis. She has not been??convincingly worked up in the past without biopsy.?? Patient has had??1: 320 MUNA titer in thepast speckled appearance??but complements were normal and with positive antihistone antibody.??Now with nephrotic range proteinuria again noted 7.9 g protein . ??patient has had a non compliant medication record as well as no shows in the clinic with RTANE. ?? Recommendations -s/p [place] renal biopsy 02/02/22. Pending pathology result. -can resume Aspirin. -DVT ppx resumed. -GN workup negative so far. -decrease nifedipine to 60 mg QD -Continue carvedilol -Continue to hold CHRISTIAN/ARBs. -hold diuretics for today. Can be discharged on 20 mg of torsemide. -will consider initiating finerenone as outpatient. -Low-salt low K diet -PT ?? Case discussed with Dr. Siddiqi. ?? Cash Liriano PGY 4 Nephrology Fellow.? Fernando Siddiqi MD: PERFORM Event Display: Progress Note Hospital Authored Date: Seen and examiend, case d/w felllow in detail and agree with his assessment and reca s noted Samantha Reynolds RN: PERFORM, SIGN, VERIFY Event Display: Progress Note Hospital Authored Date: Patient: SHEREEN TAYLOR Age: 31 years Sex: Female : 1990 Associated Diagnoses: None Author: Samantha Reynolds RN Findings Problem Related to Alteration in Cardiac Function (new) : Alteration in Cardiac Function/new 02/02/2022 9:00 EST Alteration in Cardiac Status Related to Heart failure, Hypertension Goals & Outcomes, Cardiac [...] Cardiac Interventions Implemented Assess/monitor cardiac status, Assess/monitor respiratory status,Monitor & document daily weight BH Goals/Interventions, Cardiac Yes Cardiac, Problem Start 01/24/2022 21:07 Reviewed Plan with, Cardiac Status Patient Patient Progression, Cardiac Status Patient progressing according to plan . Narrative/Incidental Pt alert oriented sitting up in bed tele on shows s.r. no c.p. no sob noted. P T complains of pain to right flank area kidney biopsy done there yesterday site has bandaid that is cdi. Pt pain scale of 9 on pain scale medicated with dilaudid as ordered. Pt felt relief from pain med scale will continue to monitor..Nehemias Hill MD: PERFORM Event Display: Progress Note Hospital Authored Date: Patient: ??SHEREEN TAYLOR ? Age:??31 Years?Sex:??Female?:??1990?? Subjective Patient is seen and examined at bedside. ??Overnight events reviewed. She is lying comfortably in bed and not in any distress. IV Dilaudid is stopped and transitioned to p.o. Renal function worsening. Review of Systems A full review of systems was completed and is otherwise negative except as mentioned above. Objective Measurements?? Weight: 83.7 kg (02/02/22) ?? Vital Signs?? Temperature: 97.3 DegF (02/02/22 07:51:00) Temperature Route: Temporal (02/02/22 07:51:00) Pulse Rate: 81 bpm (02/02/22 09:09:00) Respiratory Rate: 18 br/min (02/02/22 07:51:00) Systolic Blood Pressure: 104 mm Hg (02/02/22 09:09:00) Systolic Blood Pressure: 104 mm Hg (02/02/22 09:09:00) Diastolic Blood Pressure: 65 mm Hg (02/02/22 09:09:00) Diastolic Blood Pressure: 65 mm Hg (02/02/22 09:09:00) Blood pressure sites: Arm, left (02/02/22 07:51:00) Mean Arterial Pressure: 78 mm Hg (02/02/22 07:51:00) Pulse Pressure: 39 mm Hg (02/02/22 07:51:00) Oxygen Saturation: 97 % (02/02/22 07:51:00) Mode of Delivery (Oxygen): Room air (02/02/22 07:51:00) Early Warning Score: 6 (02/02/22 09:10:22) ? Physical Exam General: NAD, AAOx4 Neck: no JVD, neck supple Cardio: normal S1 snd S2, no MRG, RRR Resp: CTAB Abd:??soft, NT, ND, no plantar splenomegaly Extremities: No peripheral edema Skin: No rashes or other abnormalities _ Inpatient Medications Medications (27) Active SCHEDULED: (8) Carvedilol 25 mg Tablet (Carvedilol) ??25 mg, By Mouth, 2 times a day Duloxetine 30 mg Capsule (Cymbalta Capsule) ??30 mg, By Mouth, Daily Heparin 5000 units/mL Inj (1 mL) (Heparin Inj) ??5,000 units 1 mL, Subcutaneous Injection, Every 8 hours Insulin Lispro 100 units/mL Inj (3mL) (Insulin LISPRO Sliding Scale) ??1-5 units, Subcutaneous Injection, 3 times a day before meals NaCl 0.9% Flush 3ml (NaCL 0.9% Flush) ??3 mL, IV Push, Every 8 hours NIFEdipine 30 mg ER Tablet (NIFEdipine ER Tablet) ??90 mg, By Mouth, Daily Pantoprazole 40 mg Inj (Pantoprazole Inj) ??40 mg, IV Push Slowly, Daily Rosuvastatin 5 mg Tablet (Crestor 5 mg oral tablet) ??5 mg, By Mouth, Daily CONTINUOUS: (0) PRN: (19) Acetaminophen 325 mg Tablet (Tylenol Tablet) ??650 mg, By Mouth, Every 4 hours Albuterol 90mcg/Inhalation Inhaler HFA (Albuterol 90 mcg Inhaler) ??180 mcg 2 puffs, Inhalation, Every 4 hours Calcium Carbonate 500 mg (Calcium 200 mg) Chewable Tablet (Tums 500 mg oral tablet, chewable) ??500 mg 1 tablet, Chew, Every 4 hours Dextromethorphan-Guaifenesin 20 mg-200 mg/10 mL Liqu UD (Robitussin DM Liquid) ??10 mL, By Mouth, Every 4 hours Dextrose Inj Syringe (Dextrose 50% Inj Syringe (25Gm)) ??12.5 Gm, IV Push Slowly, Every 20 minutes Dextrose Inj Syringe (Dextrose 50% Inj Syringe (25Gm)) ??25 Gm, IV Push Slowly, Every 15 minutes Docusate Sodium 100 mg Capsule (Colace sodium 100 mg oral capsule) ??100 mg 1 capsule, By Mouth, 2 times a day Glucagon 1 mg Inj (Glucagon Inj) ??1 mg, Intramuscular, Once Glucose 40% Gel (15 Gm) (Glucose Gel) ??15 Gm, By Mouth, Every 20 minutes Glucose 40% Gel (15 Gm) (Glucose Gel) ??30 Gm, By Mouth, Every 20 minutes HYDROmorphone 0.5 mg/0.5 mL Inj Syringe (HYDROmorphone Inj) ??0.2 mg 0.2 mL, IV Push Slowly, Every 4hours Lorazepam 2 mg Inj Syringe (Ativan Inj) ??0.5 mg, IV Push Slowly, Every 6 hours Melatonin 3 mg Tablet (Melatonin Tablet) ??3 mg, By Mouth, Daily at bedtime NaCl 0.9% Flush 3ml (NaCL 0.9% Flush) ??3 mL, IV Push, Every 8 hours OxyCODONE 5 mg IR Tablet (oxyCODONE 5 mg oral tablet) ??5 mg, By Mouth, Every 6 hours Polyethylene Glycol 17 Gm Powder (MiraLax Powder) ??17 Gm 1 pack/packet, By Mouth, Daily Senna 8.6 mg / Docusate 50 mg tablet (Docusate/Senna Tablet) ??1 tablet, By Mouth, 2 times a day Senna 8.6 mg / Docusate 50 mg tablet (Docusate/Senna Tablet) ??1 tablet, By Mouth, 2 times a day Simethicone 80 mg Chewable Tablet (Simethicone Tablet) ??80 mg, Chew, 3 times a day ? Results Recent Labs BLOOD COUNT & DIFF WBC 3.7 k/mm3 (Low)?? 02/02/2022 06:25 RBC 2.80 m/mm3 (Low)?? 02/02/2022 06:25 Hgb 7.7 Gm/dL (Low)?? 02/02/2022 06:25 Hct 24.3 % (Low)?? 02/02/2022 06:25 MCV 86.8 femtoliters ()?? 02/02/2022 06:25 MCH 27.5 pg ()?? 02/02/2022 06:25 MCHC 31.7 g/dL (Low)?? 02/02/2022 06:25 Platelet Count 164 k/mm3 ()?? 02/02/2022 06:25 RDW-SD 42.0 femtoliters ()?? 02/02/2022 06:25 MPV 12.8 femtoliters (High)?? 02/02/2022 06:25 Nucleated RBC (Automated) 0.0 #/100 WBC'S ()?? 02/02/2022 06:25 Abs. NRBC 0.0 k/mm3 ()?? 02/02/2022 06:25 ?? CHEM GENERAL Sodium 135 mmol/L ()?? 02/02/2022 06:25 Potassium 4.2 mmol/L ()?? 02/02/2022 06:25 Chloride 99 mmol/L ()?? 02/02/2022 06:25 Bicarbonate Level 26 mmol/L ()?? 02/02/2022 06:25 Anion Gap 10 ()?? 02/02/2022 06:25 Glucose Level 147 mg/dL (High)?? 02/02/2022 06:25 Glucose, POC 130 mg/dL (High)?? 02/02/2022 07:52 BUN 43 mg/dL (High)?? 02/02/2022 06:25 Creatinine-Blood 3.7 mg/dL (High)?? 02/02/2022 06:25 Estimated GFR Creatinine 16 ML/MIN/1.73 M2 ()?? 02/02/2022 06:25 Calcium 8.1 mg/dL (Low)?? 02/02/2022 06:25 Magnesium 1.9 mg/dL ()?? 02/01/2022 02:01 ?? COAG INR 1.0 ()?? 02/01/2022 02:01 Protime (PT) 10.7 seconds ()?? 02/01/2022 02:01 ? Assessment/Plan Ms. Taylor is ??a 31-year-old??female with a medical history significant for nonischemic cardiomyopathy, HFrEF 40 to 45% (last echo 11/2021), chronic normocytic anemia,??CKD stage??IV with baseline Cr 3-4, insulin-dependent DMII , history of preeclampsia (urgent on 12/09/2021??for severe preeclampsia with demise), recent??admission for??CHF exacerbation,??who presented??to the emergency department??with??chest pain and flank pain, found to??have??hypertensive urgency, started on nitro drip and transferred??[facility]. ??Patient admitted for??acute on chronic heart failure??due to hypertensive urgency.?Hospital course has been complicated by worsening renal function.?? Renal biopsy done on??02/01. ?? Acute on chronic heart failure with mildly reduced EF 40-45% Hypertensive urgency with end organ damage Heart failure exacerbation likely due to hypertensive urgency AHA:??C NYHA: III -Goal BP 130/80 torr -PO Torsemide??held??for euvolemia -->will resume??if ok with renal team. -Beta Anderson:??Carvedilol??25 mg??BID -I/Os, Daily Weights, Telemetry, Cardiac 3g Na Diet ?? Nausea and Vomiting-improving Left sided abdominal pain - ativan prn for n/v - compazine 5mg q6hr abhi x 1 day - monitor lytes ?? Normal QTcFra: Prolonged QTcB--however use??not recommended See AHA/ACC/HRS 2009 guidelines for Standardization and Interpretation of the Electrocardiogram Electrolytes within normal limits Monitor QTcH, QTcFra, or QTcR--not QTcB ?? Insulin-dependent type 2 diabetes??mellitus Glucose range currently??104 to 122 ??? Low-dose insulin sliding scale??and POC ??? HOLD Lantus 8 units as poor intake ??? Hypoglycemic emergency as??measures ?? Chronic kidney disease stage IV Baseline creatinine 3-4, currently stable at 3.6 on this mornings labs Likely due to hypertensive urgency and diabetes mellitus type 2 Monitor kidney function Avoid nephrotoxins stable so far ?? Chronic normocytic anemia: Anemia of Kidney disease ?? Depression Adjustment disorder Patient has recent history of demise.She was??constantly crying during my interview and??wanted to go home.?? Later RN informed that she removed on the monitors and does not want any treatment.'s??psych consult??requested.?? Recommendations appreciated via core text.?? EKG done,??QTC less than 500.?? Started on??Cymbalta.?? Psychiatrist informed that she??was cooperative??and??did not want to leave AMA at the time of his??evaluation. ?? CODE STATUS: Full VTE prophylaxis: Heparin subcu Diet:??Cardiac ? CT Abdomen and Pelvis WO contrast BHSPowerscriadina , CIS S: MACARIO More MD, Mathew Javier: VERIFY Event Display: Result: Authored Date: [id number] CT Abdomen and Pelvis W/O Contrast INDICATION/CLINICAL QUESTION: Unresolving nausea, vomiting, and LUQ pain; history of nonischemic cardiomyopathy with preeclampsia status post urgent section 12/09/2021 recent admission for CHFexacerbation. Clinical Question(s): Obstruction; TECHNIQUE: Spiral CT through the abdomen and pelvis without IV contrast formatted in 3 planes. The study was performed without oral contrast. Weight- based protocol using automatic tube modulation was used to optimize exposure parameters. CTDIvol Body: 20.30 mGy, DLP Body: 1141 mGy*cm. COMPARISON: 07/10/2021. FINDINGS: LUNG BASES: Small bilateral pleural effusions and basilar atelectasis have increased in the interval. Normal heart size, small pericardial effusion is slightly increased in the interval best seen on coronal imaging. LIVER: Unremarkable. GALLBLADDER: Postcholecystectomy changes. BILE DUCTS: No intra or extra hepatic bile duct dilation. SPLEEN: Normal in size and attenuation. PANCREAS: Unremarkable. ADRENAL GLANDS: Normal-appearing. KIDNEYS: No calculi or hydronephrosis. No suspicious masses on this noncontrast examination. BLADDER: Mild bladder wall thickening improved compared to previous, no surrounding soft tissue stranding. REPRODUCTIVE ORGANS: Somewhat bulky appearing uterus compared to previous examination likely evolving post status. No focal fluid collections. STOMACH, SMALL AND LARGE BOWEL: Stomach is debris-containing, small bowel is nondilated. There is a paucity of stool throughout the colon. No surrounding pericolonic soft tissue stranding. APPENDIX: Normal-appearing. PERITONEUM, OMENTUM AND MESENTERY: No ascites or pneumoperitoneum. No omental or mesenteric lesions. VASCULATURE: Normal. No aneurysm. No evidence of venous thrombosis. LYMPH NODES: Mild retroperitoneal adenopathy has improved in the interval. Largest node just inferior to the left renal vein measuring 8 mm short axis dimension previously 1.5 cm short axis dimension. Inguinal adenopathy also appears improved. ABDOMINAL WALL: Postsurgical scarring suggesting a previous low transverse incision without evidenceof a drainable fluid collection. BONES: No acute abnormalities, no focal osseous lesions, mild degenerative changes at the L4/5 level. IMPRESSION: 1. Evolving postoperative/ changes without evidence of an associated complication. 2. Mild bladder wall thickening versus underdistention appears somewhat improved compared to previous exam. Clinical laboratory correlation for urinary tract infection recommended. 3. There is a paucity of stool throughout the colon suggesting evolving diarrheal illness without evidence of associated colitis or other inflammatory process. 4. Small bilateral pleural effusions and pericardial effusion slightly larger than previous. 5. Improving nonspecific adenopathy. WSN: [id number] Ordering Physician: Payal Tinoco Dictated By: Mathew More MD Dictated Date/Time: 01/26/22 4:17 pm Reviewed By: Mathew More MD Signed By: Mathew More MD Signed Date/Time: 01/26/22 4:17 pm Transcribed By: ALEXIS Transcribed Date/Time: 01/26/22 3:58 pm XR Abdomen AP BHSPowerscribe , CIS S: TRANSCRIBE Bonilla Fox MD: SIGN Joshua Chun MD, V: VERIFY Event Display: Result: Authored Date: [id number] XR Abdomen AP 1 view INDICATION: Nausea, vomiting. Concern for obstruction. COMPARISON: None FINDINGS: Moderate stool retention but otherwise normal bowel gas pattern. No evidence of obstruction. No evidence of pneumoperitoneum. No organomegaly, masses or calcifications. No acute bone findings. Surgical clips in the right upper quadrant of the abdomen. IMPRESSION: Moderate stool retention but otherwise normal. I have personally reviewed the images and I agree with this report. WSN: [id number] Ordering Physician: Rocio Marcum Dictated By: Bonilla Fox MD Dictated Date/Time: 01/24/22 4:53 pm Reviewed By: Joshua Chun MD, V Signed By: Joshua Chun MD, V Signed Date/Time: 01/24/22 4:58 pm Transcribed By: ALEXIS Transcribed Date/Time: 01/24/22 4:49 pm Patient Care team information Care Team PersonnelName: Anuradha Morris RN Position: S RN Member Role: Primary Care Nurse Name: Samantha Reynolds RN Position: S RN Member Role: Primary Care Nurse Name: Omega Gillespie RN Position: S RN Member Role: Primary Care Nurse Name: Paty Kelly RN Position: S RN Member Role: Primary Care Nurse Name: Akil Gleason RN Position: [facility] RN Member Role: Primary Care Nurse Name: Sonia Malone Position: [facility] RN Member Role: Primary Care Nurse Name: Keira Desai RN Position: [facility] RN Member Role: Primary Care Nurse Name: Gomez Moseley RN Position: [facility] RN Supv Member Role: Primary Care Nurse Name: Vashti Bruce RN Position: [facility] RN Member Role: Primary Care Nurse Name: Raghav Granger Position: [facility] RN Member Role: Primary Care Nurse Name: Cassy Caraballo RN Position: [facility] RN Member Role: Primary Care Nurse Name: Lisa Vines RN Position: [facility] RN Member Role: Primary Care Nurse Name: Larissa Barnett RN Position: [facility] RN Member Role: Primary Care Nurse Name: Inna Beckwith RN Position: [facility] RN Member Role: Primary Care Nurse Name: Cady Araya RN Position: [facility] RN Member Role: Primary Care Nurse Name: Abdon Beard MD Position: [facility] Outreach Member Role: PCP Address: Address: [address] [place] [phone] Name: Michele Blancas DO Position: [facility] Renal MD Member Role: [employer] Consulting Physician Address: Address: [address] [place], [place] [address] [place] [address]- [place] Name: María Acosta RN Position: [facility] RN Member Role: Primary Care Nurse Name: Heather Correa RN Position: [facility] RN Member Role: Primary Care Nurse Name: Treasure Gilbert RN Position: [facility] RN Supv Member Role: Primary Care Nurse Name: Farzana Sevilla Position: [facility] RN Member Role: Primary Care Nurse Name: Libertad Sim RN Position: [facility] RN Member Role: Primary Care Nurse Name: Javan Pimentel MD Position: [facility] Renal MD Member Role: Lifetime Consulting Physician Address: Address: [address] [place] [address] [address] [facility] [place] [address]- [place] Name: Heather Pal RN Position: [facility] RN Member Role: Primary Care Nurse Name: Jody Rasmussen RN Position: [facility] RN Member Role: Primary Care Nurse Name: Mau Hazel RN Position: [facility] RN Member Role: Primary Care Nurse Name: Pedro Taylor RN Position: [facility] RN Member Role: Primary Care Nurse Name: Charlotte Singletary RN Position: [facility] OB RN Member Role: Primary Care Nurse Name: Alison Jose RN Position: [facility] RN Member Role: Primary Care Nurse Name: Kendall Coleman RN Position: [facility] RN Member Role: Primary Care Nurse Name: Nancy Fair RN Position: [facility] SN RN Member Role: Primary Care Nurse Name: Sofie Reed Position: [facility] RN Member Role: Primary Care Nurse Name: Fernando Siddiqi MD Position: [facility] Renal MD Member Role: [employer] Consulting Physician Address: Address: [address] [place] [address] [facility] [address] Name: Lianne Byrnes RN Position: [facility] RN Member Role: Primary Care Nurse Name: Tona Jacome LPN Position: [facility] RN Member Role: Primary Care Nurse Name: Tatiana Madrigal RN Position: [facility] RN Member Role: Primary Care Nurse Name: Jose Callejas RN Position: [facility] RN Member Role: Primary Care Nurse Name: Vy RAMIREZ Attending Position: [facility] ED Medicine MD Name: Tami Garg Position: [facility] ED OA Charge Member Role: ED Associate Name: Yolande Carmona Position: [facility] ED TA [facility] Member Role: Patient Care Provider Name: Whitney Slade RN Position: [facility] ED RN W/OE and Tasks Member Role: Patient Care Provider Name: Lisa Leonard RN Position: [facility] ED RN W/OE and Tasks Member Role: Patient Care Provider Care Team Related PersonsName: LEONOR MCFARLAND Address: home [address] [place] [address] Name: REJI TAYLOR Address: home [address] [place] [address] Name: ADELA JEFF Address: [id number] Address: home [address] [address] [place] Name: ELI BONILLA Address: home [address] [address]
--- OUTSIDE RECORDS SUMMARY | 2022-03-31 18:23 | XMS_ITS | Continuity of Care Document ---
:1990 Author Organization [facility] Address [address] [place] [address]- Care Team Providers Name Role Phone Chirag CARLSON, Abdon Primary Care Physician [facility]counter [facility] Date(s): 02/26/21 - 02/28/[address] [address] Discharge Disposition: A-D/C Home Attending Physician: Rosendo Mitchell DO Admitting Physician: Samuel Cedillo MD Referring Physician: Not on Staff, Referring [...] '[id number] Note: TD4 Admin Note: unknown exact [id number] Note: unknown exact date Medications amLODIPine 10 mg oral tablet 10 mg, Tablet, By Mouth, 02/28/21 9:00:00 EST Start Date: 02/28/21 Stop Date: 02/28/21 Status: CompletedamLODIPine 10 mg oral tablet 1 tablet = 10 mg, By Mouth, Daily, 0 Refills, Maintenance, 02/03/21 9:50:00 EST, Tablet, ; Start Date: 02/03/21 Status: Orderedbedside commode bedside commode, See Instructions, # 1 each, Refills 0, Tot. Refills 0, Maintenance, DX DM E 11.9 using at bedside, 11/14/17 17:17:55 EDT, Compound Start Date: 11/14/17 Status: Orderedcephalexin monohydrate 500 mg oral capsule [...] 06/10/21 15:59:00 EDT, 02/28/21 15:59:00 EST, Capsule, [facility], Partial fill upon patient request... Start Date: 02/28/21 Stop Date: 06/10/21 Status: OrderedDEXCOM G6 MISCELLANEOUS MACHINE OPERATOR DEXCOM G6 MISCELLANEOUS MACHINE OPERATOR, See Instructions, # 1 each, Refills 0, Tot. Refills 0, Maintenance, Use to monitor blood lgucose levels [facility]: [id number] E10.9, 04/06/20 12:07:00 EST, Supply, 170, cm, 03/05/20 14:05:00 EST, Height, 82, kg, 03/05/20 14:53:00... Start Date: 04/06/20 Status: OrderedDEXCOM G6 SENSOR, 3 PACK DEXCOM G6 SENSOR, 3 PACK, See Instructions, # 3 each, Refills 3, Tot. Refills 3, Maintenance, Use tomonitor blood sugar. E10.9 [facility] [id number], 07/16/20 14:20:00 EDT, Supply Start Date: 07/16/20 Status: OrderedDEXCOM G6 TRANSMITTER DEXCOM G6 TRANSMITTER, See Instructions, # 1 each, Refills 3, Tot. Refills 3, Maintenance, DEXCOM [id number], 07/16/20 14:20:00 EDT, Supply Start Date: 07/16/20 Status: Ordereddiclofenac 1% topical gel = 2 Gm, Topically, 4 times a day, # 112 Gm, 0 Refills, Maintenance, 02/05/21 12:34:00 EST, Gel, [facility], Partial fill upon patient request if the prescription is for a schedule II opioid drug., 170, cm, 03/05/20 14:05:00 EST, Height,... Start Date: 02/05/21 Stop Date: 02/19/21 Status: OrderedDilaudid Inj 0.5 mg, Injection, IV Push Slowly, Every 6 hours, PRN for Pain , Severe, Routine, 02/27/21 3:06:00 EST Start Date: 02/27/21 Stop Date: 03/06/21 Status: OrderedDME shower chair DME shower chair, See Instructions, # 1 each, Refills 0, Tot. Refills 0, Maintenance, DM E 11.9, 11/14/17 17:17:48 EDT, Compound Start Date: 11/14/17 Status: Orderedferrous sulfate 325 mg oral tablet [...] to check blood sugar 5 times daily. . 90-day supply., 11/17/20 10:21:00 EDT, Compound, 170, cm, 03/05/20 14:05:00 EST, Height, 82, kg, 03/05/20 14:53:00 EST, Dry Weight Start Date: 11/17/20 Stop Date: 03/17/21 Status: Orderedfurosemide 20 mg oral tablet TAKE [...] Take 1 tablet daily in the morning. . 90-day supply.,# 90 tablet, 3 Refills, Maintenance, 11/17/20 10:19:00 EDT, Tablet, [facility]/pharmacy #[id number], Partial fillupon patient request if the prescription is for a... Start Date: 11/17/20 Status: OrderedLevemir FlexTouch 100 units/mL subcutaneous solution See Instructions, Take 40 units once daily. E1165. 90-day supply., # 45 mL, 3 Refills, Maintenance,11/17/20 10:20:00 EDT, [id number], Stop Lantus. Start Levemir., 170, cm, 03/05/20 14:05:00 EST, Height, 82, kg, 03/05/20 14:53:00 EST, Dry Weight Start Date: 11/17/20 Status: Orderedmetoprolol 25 mg oral tablet 25 mg, Tablet, By Mouth, 02/28/21 9:00:00 EST Start Date: 02/28/21 Stop Date: 02/28/21 Status: CompletedMetoprolol Tartrate 25 mg oral tablet 1 tablet = 25 mg, By Mouth, 2 times a day, 0 Refills, Maintenance, 02/03/21 9:49:00 EST, Tablet, ; Start Date: 02/03/21 Status: OrderedNovoLOG FlexPen 100 units/mL subcutaneous solution See Instructions, Take 11-21 units, 3 times daily before meals. E11.65. 90-day supply., # 75 mL, 3 Refills, Maintenance, 11/17/20 10:20:00 EDT, Solution, [facility]/pharmacy #[id number], Partial fill upon patient request if the prescription is for a schedule II op... Start Date: 11/17/20 Status: OrderedoxyCODONE 5 mg oral tablet 5 mg, 1, tablet, By Mouth, Every 6 hours, PRN, Refills 0, Tot. Refills 0, Maintenance, as needed forpain, 02/28/21 16:23:00 EST, Partial fill upon patient request if the prescription is for a scheduleII opioid drug. Start Date: 02/28/21 Status: OrderedPotassium Chloride (Eqv-K-Tab) 20 mEq oral tablet, extended release 1 tablet = 20 mEq, By Mouth, Daily, # 14 tablet, 0 Refills, Maintenance, 02/05/21 12:28:00 EST, [facility], Partial fill upon patient request [...] Obese class I(Confirmed) Active Care Coordination [facility], Hakan Active Angel, CC (Confirmed) delivery(Confirmed) Active delivery(Confirmed) Active 1Not seem at [place] since 08/12/2016. Multiple no show in our center. She is seen by other provider Dr Matt Gutierrez by pharmacy records. Results Orders for Microbiology Reports Name Date Blood Culture 02/26/21 Blood Culture #2 02/26/21 Microbiology Reports TEST:Blood Culture, Second Order STATUS:Unauthenticated BODY SITE: SOURCE:Blood COLLECTED DATE/TIME:02/26/21 5:50 PMBlood Culture, Second Order SPECIMEN DESCRIPTION : BLOOD RIGHT HAND SPECIAL REQUESTS : NONE CULTURE : NO GROWTH AFTER 48 HOURS REPORT STATUS : PRELIMINARY REPORT TEST:Blood Culture STATUS:Unauthenticated BODY SITE: SOURCE:Blood COLLECTED DATE/TIME:02/26/21 4:28 PMBlood Culture SPECIMEN DESCRIPTION : BLOOD L AC SPECIAL REQUESTS : NONE CULTURE : NO GROWTH AFTER 48 HOURS REPORT STATUS : PRELIMINARY REPORT Radiology Reports Exam Date Time Procedure Performing Provider Status 02/26/21 5:46 PM Tibia/Fibula 2 Views Right Bakari Quinones; Nicol (Verified) Notes:(Tibia/Fibula 2 Views Right) Reason For Exam: InfectionRESULT: Tibia/Fibula 2 Views Right Foot 2 Views Right, Tibia/Fibula 2 Views Right, 3 views Hx of Present Illness: coming from home c o right lower leg pain worsening this morning. swelling and redness of right ext. pain radiates up leg to back. sensitive to touch. history of heart failure. CP on inpsiration. headache. legally blind. LSCA; Reason: Infection; Clinical Question(s): Osteomyelitis COMPARISON: None. 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 Gas noted within the soft tissues. I do not see evidence of bony erosion. No radiopaque foreign body. IMPRESSION: Postsurgical findings. No erosive findings identified. WSN: [id number] Ordering Physician: Al Rand Dictated By: Kaveh Chambers MD Dictated Date/Time: 02/26/21 6:04 pm Reviewed By: Kaveh Chambers MD Signed By: Kaveh Chambers MD Signed Date/Time: 02/26/21 6:04 pm Transcribed By: ALEXIS Transcribed Date/Time: 02/26/21 6:03 pm Exam Date Time Procedure Performing Provider Status 02/26/21 5:46 PM Foot 2 Views Right Bakari Quinones; Auth (Ve rified) Notes:(Foot 2 Views Right) Reason For Exam: InfectionRESULT: Foot 2 Views Right Foot 2 Views Right, Tibia/Fibula 2 Views Right, 3 views Hx of Present Illness: coming from home c o right lower leg pain worsening this morning. swelling and redness of right ext. pain radiates up leg to back. sensitive to touch. history of heart failure. CP on inpsiration. headache. legally blind. LSCA; Reason: Infection; Clinical Question(s): Osteomyelitis COMPARISON: None. 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 Gas noted within the soft tissues. I do not see evidence of bony erosion. No radiopaque foreign body. IMPRESSION: Postsurgical findings. No erosive findings identified. WSN: [id number] Ordering Physician: Al Rand Dictated By: Kaveh Chambers MD Dictated Date/Time: 02/26/21 6:04 pm Reviewed By: Kaveh Chambers MD Signed By: Kaveh Chambers MD Signed Date/Time: 02/26/21 6:04 pm Transcribed By: ALEXIS Transcribed Date/Time: 02/26/21 6:03 pm Exam Date Time Procedure Performing Provider Status 02/26/21 5:46 PM Chest 2 Views Frontal and Lat Bakari Quinones; Auth (Verified) Notes:(Chest 2 Views Frontal and Lat) Reason For Exam: CoughRESULT: Chest 2 Views Frontal and Lat Chest 2 Views Frontal and Lat Hx of Present Illness: coming from home c o right lower leg pain worsening this morning. swelling and redness of right ext. pain radiates up leg to back. sensitive to touch. history of heart failure. CP on inpsiration. headache. legally blind. LSCA; Reason: Cough; Clinical Question(s): Pneumonia COMPARISON: 02/02/2021 FINDINGS: LINES AND TUBES: None. LUNGS AND PLEURA: Clear lungs. Normal pulmonary vascularity. No pleural effusion. No pneumothorax. HEART, MEDIASTINUM AND EVERT: Heart is normal in size. Normal upper mediastinal and hilar contour. BONES AND SOFT TISSUES: No acute abnormality. IMPRESSION: No acute abnormality. WSN: [id number] Ordering Physician: Al Rand Dictated By: Kaveh Chambers MD Dictated Date/Time: 02/26/21 6:00 pm Reviewed By: Kaveh Chambers MD Signed By: Kaveh Chambers MD Signed Date/Time: 02/26/21 6:00 pm Transcribed By: ALEXIS Transcribed Date/Time: 02/26/21 5:58 pm Vital Signs Most recent to oldest 1 2 3 4 [Reference Range]: Height 168 cm (02/27/21 1:47 AM) Weight 87.5 kg (02/27/21 1:47 AM) Oxygen Saturation 100 % 97 % 97 % [94-100 %] (02/28/21 3:00 PM) (02/28/21 11:00 AM) (02/28/21 8:00 AM) Pulse Rate [55-90 bpm] 75 bpm 75 bpm 75 bpm (02/28/21 3:00 PM) (02/28/21 11:00 AM) (02/28/21 9:02 AM) Body Mass Index 31 [18.5-24.99] *>HHI* (02/27/21 1:47 AM) Blood Pressure 147/82 mm Hg 120/72 mm Hg 152/82 mm Hg 152/82 mm Hg [90-138/55-84 mm Hg] *H* (02/28/21 11:00 AM) *H* *H * (02/28/21 3:00 PM) (02/28/21 9:02 AM) (02/28/21 9:02 AM) Respiratory Rate [16-30 18 br/min 18 br/min 20 br/min br/min] (02/28/21 3:47 PM) (02/28/21 11:38 AM) (02/28/21 11:00 AM) Temperature [96.8-100.4 98.1 DegF 98.2 DegF 98.1 DegF DegF] (02/28/21 3:00 PM) (02/28/21 11:00 AM) (02/28/21 8:00 AM) Mode of Delivery Room air Room air Room air (Oxygen) (02/28/21 3:00 PM) (02/28/21 11:00 AM) (02/28/21 8:00 AM) Blood pressure sites Arm, right Arm, right Arm, right (02/27/21 4:00 AM) (02/27/21 1:47 AM) (02/27/21 12:08 AM) Temperature Route Oral Oral Oral (02/28/21 3:00 PM) (02/28/21 11:00 AM) (02/28/21 8:00 AM) Dry Weight 87.5 kg (02/27/21 1:47 AM) Weight Obtained Via Bed scale (02/27/21 1:00 AM) Social History Social History Type Response Smoking Status Never smoker entered on: 03/28/17 Sex
--- OUTSIDE RECORDS SUMMARY | 2022-03-31 18:23 | XMS_ITS | Continuity of Care Document ---
:1990 Author Organization [facility] Address [address] [place] [address]- Care Team Providers Name Role Phone Chirag CARLSON, Abdon Primary Care Physician [facility] Date(s): 01/18/22 - 03/11/22 [facility] [address] [place] [id number] Attending Physician: Carl Mcdonnell DO Admitting Physician: Carl Mcdonnell DO Referring Physician: Beryl BAG VALVER, Kerrie Allergies, Adverse Reactions, Alerts Substance Reaction Severity [...] '943Admin Note: TD4 Admin Note: unknown exact [id number] Note: unknown exact date Medications Aspirin Low [...] 03/10/22 13:14:00 EST, Route to Pharmacy Electronically, [facility], Partial fill upon patient request if the prescription is for a schedul... Start Date: 03/10/22 Status: OrderedCrestor 5 mg oral tablet 1 tablet = 5 mg, By Mouth, Daily, # 30 tablet, 0 Refills, Maintenance, 01/19/22 13:30:00 EST, Tablet, [facility]/pharmacy #[id number], Partial fill upon patient request if the prescription is for a schedule II opioid drug., 160, cm, 01/19/22 8:55:00 EST, Height, 9... Start Date: 01/19/22 Status: Orderedduloxetine 30 mg oral enteric coated capsule 1 capsule = 30 mg, By Mouth, Daily, # 30 capsule, 1 Refills, Maintenance, 02/02/22 15:18:00 EST, Capsule, [facility]/pharmacy #[id number], Partial fill upon patient request if the prescription is for a schedule II opioid drug., 160, cm, 01/19/22 8:55:00 EST, Heigh... Start Date: 02/02/22 Status: OrderedFlonase 50 mcg/inh nasal spray 1 sprays, Nares, Both, 2 times a day, # 16 Gm, 0 Refills, Maintenance, 03/10/22 13:15:00 EST, Alpha,[facility], Partial fill upon patient request if the prescription is for a schedule IIopioid drug., 1 sprays Nares, Both 2 times a day,... Start Date: 03/10/22 Status: OrderedLevemir FlexTouch 100 units/mL subcutaneous solution = 8 units, Subcutaneous Injection, Daily at bedtime, (NOT TAKING & HASN'T IN MONTHS), # 10 mL, 0Refills, Maintenance, 03/10/22 13:13:00 EST, Injection, [facility], Partial fill upon patient request if the prescription is for a schedule... Start Date: 03/10/22 Status: Orderedmetoclopramide 5 mg oral tablet 1 tablet = 5 mg, By Mouth, Every 6 hours, PRN Nausea & Vomiting, for 14 days, # 56 tablet, 0 Refills, Acute 03/24/22 13:15:00 EST, 03/10/22 13:15:00 EST, Tablet, [facility], Partial fill upon patient request if the prescription is for a... Start Date: 03/10/22 Stop Date: 03/24/22 Status: OrderedNIFEdipine 30 mg oral tablet, extended release 30 mg, 1, tablet, By Mouth, Daily, # 30 tablet, Refills 0, Tot. Refills 0, Maintenance, 03/10/22 13:15:00 EST, Route to Pharmacy Electronically, [facility], Partial fill upon patient request if the prescription is for a schedule II opioi... Start Date: 03/10/22 Stop Date: 04/09/22 Status: OrderedNovoLOG FlexPen 100 units/mL injectable solution 11-12 UNITS, Subcutaneous Injection, 3 times a day before meals, (NOT TAKING & HASN'T IN MONTHS), # 10 mL, 0 Refills, Maintenance, 03/10/22 13:12:00 EST, Injection, [facility], Partial fill upon patient request if the prescription is for... Start Date: 03/10/22 Status: Orderedondansetron 4 mg oral tablet 1 tablet = 4 mg, By Mouth, Every 8 hours, PRN Nausea & Vomiting, # 12 tablet, 0 Refills, Maintenance, 03/10/22 13:16:00 EST, Tablet, [facility], Partial fill upon patient request if the prescription is for a schedule II opioid drug., 170... Start Date: 03/10/22 Status: OrderedoxyCODONE 5 mg oral tablet 5 mg, 1, tablet, By Mouth, Every 6 hours, PRN, for 3 days, # 12 tablet, Refills 0, Tot. Refills 0, Acute 03/13/22 13:14:00 EST, as needed for pain, 03/10/22 13:14:00 EST, Route to Pharmacy Electronically, [facility], Partial fill upon pa... Start Date: 03/10/22 Stop Date: 03/13/22 Status: Orderedpantoprazole 40 mg oral delayed release tablet 1 tablet = 40 mg, By Mouth, Daily, # 90 tablet, 0 Refills, Maintenance, 03/10/22 13:16:00 EST, EC Tablet, 170, cm, 03/10/22 10:58:00 EST, Height, 88, kg, 02/26/22 23:01:00 EST, Dry Weight Start Date: 03/10/22 Status: OrderedPen Sharples, 31 G x 5 mm BD Ultra [...] 0 Refills, Maintenance, 03/10/22 13:14:00 EST, Tablet, [facility], Partial fill upon patient [...] Migraine5 Confirmed Active Care Coordination Confirmed Active Cathy-LISA, Hakan Angel, CC 1Managed by PCP. WEll controlled.2Self-manages. States currently stable. No medications.3Not seem at [facility] since 08/12/2016. Multiple no show in our center. She is seen by other provider Dr Matt Gutierrez by pharmacy records.4Managed by [id number] by PCP with Tylenol Social History Social [...] Primary Care Nurse Name: Sonia Malone Position: [facility] RN Member Role: Primary Care Nurse Name: Keira Desai RN Position: [facility] RN Member Role: Primary Care Nurse Name: Gomez Moseley RN Position: [facility] RN Supv Member Role: Primary Care Nurse Name: Vashti Bruce RN Position: [facility] RN Member Role: Primary Care Nurse Name: Raghav Granger Position: [facility] RN Member Role: Primary Care Nurse Name: Cassy Caraballo RN Position: [facility] RN Member Role: Primary Care Nurse Name: Jodi Carrillo RN Position: [facility] RN Member Role: Primary Care Nurse Name: Abbey Shelley RN Position: [facility] RN Member Role: Primary Care Nurse Name: Larissa Barnett RN Position: [facility] RN Member Role: Primary Care Nurse Name: Inna Beckwith RN Position: [facility] RN Member Role: Primary Care Nurse Name: Cady Araya RN Position: [facility] RN Member Role: Primary Care Nurse Name: Abdon Beard MD Position: [facility] Outreach Member Role: PCP Address: Address: [address] [place] [address]- Name: Michele Blancas DO Position: [facility] Renal MD Member Role: Lifetime Consulting Physician Address: Address: [address] [place], [place] [address] [place] [address]- Name: María Acosta RN Position: [facility] RN Member Role: Primary Care Nurse Name: Treasure Gilbert RN Position: [facility] RN Supv Member Role: Primary Care Nurse Name: Stefany Grajeda RN Position: [facility] RN Member Role: Primary Care Nurse Name: Farzana Sevilla Position: [facility] RN Member Role: Primary Care Nurse Name: Javan Pimentel MD Position: [facility] Renal MD Member Role: Lifetime Consulting Physician Address: Address: [address] [place] [address] [address] [facility], [place] [address]- [place] Name: Heather Pal RN Position: [facility] RN Member Role: Primary Care Nurse Name: Jody Rasmussen RN Position: [facility] RN Member Role: Primary Care Nurse Name: Mau Hazel RN Position: [facility] RN Member Role: Primary Care Nurse Name: Pedro Taylor RN Position: [facility] RN Member Role: Primary Care Nurse Name: Charlotte Singletary RN Position: [facility] OB RN Member Role: Primary Care Nurse Name: Alison Jose RN Position: S RN Member Role: Primary Care Nurse Name: Kendall Coleman RN Position: S RN Member Role: Primary Care Nurse Name: Nancy Fair RN Position: [facility] SN RN Member Role: Primary Care Nurse Name: Sofie Reed Position: S RN Member Role: Primary Care Nurse Name: Fernando Siddiqi MD Position: [facility] Renal MD Member Role: Lifetime Consulting Physician Address: Address: [address] [place] [address] [facility] [address] Name: Kaelyn Lewis RN Position: [facility] RN Member Role: Primary Care Nurse Name: Lianne Byrnes RN Position: [facility] RN Member Role: Primary Care Nurse Name: Tona Jacome LPN Position: S RN Member Role: Primary Care Nurse Name: Tatiana Madrigal RN Position: [facility] RN Member Role: Primary Care Nurse Name: Jose Callejas RN Position: [facility] RN Member Role: Primary Care Nurse Name: Ashely Riley Position: [facility] RN Member Role: Primary Care Nurse Care Team Related PersonsName: LEONOR MCFARLAND Address: home [address] [place] [address] Name: REJI TAYLOR Address: home [address] [place] [address] Name: JEFF CHAPMAN Address: [address] Address: home [address] [address] [place] Name: ELI BONILLA Address: home [address] [place] [address]
--- OUTSIDE RECORDS SUMMARY | 2022-03-31 18:23 | XMS_ITS | Continuity of Care Document ---
:1990 Author Organization [facility] Address [address] [place] [address]- Care Team Providers Name Role Phone Chirag CARLSON, Abdon Primary Care Physician Encounter [facility] Date(s): 03/03/21 - 03/06/[address] [address]- Discharge Disposition: A-D/C Home Attending Physician: Linnea Duque MD Admitting Physician: Kristi Garvin MD Referring Physician: Not on Staff, Referring [...] '943Admin Note: TD4 Admin Note: unknown exact [id number] Note: unknown exact date Medications amLODIPine 10 mg oral tablet 10 mg, Tablet, By Mouth, 03/06/21 9:00:00 EST Start Date: 03/06/21 Stop Date: 03/06/21 Status: CompletedamLODIPine 10 mg oral tablet 1 [...] 06/10/21 15:59:00 EDT, 02/28/21 15:59:00 EST, Capsule, [facility], Partial fill upon patient request... Start Date: 02/28/21 Stop Date: 06/10/21 Status: Ordereddiclofenac 1% topical gel = 2 Gm, Topically, 4 times a day, # 112 Gm, 0 Refills, Maintenance, 02/05/21 12:34:00 EST, Gel, [facility], Partial fill upon [...] 3 Refills, Maintenance, 11/17/20 10:19:00 EDT, Tablet, [facility]/pharmacy #[id number], Partial fillupon patient request if the prescription is for a... Start Date: 11/17/20 Status: OrderedLevemir FlexTouch 100 units/mL subcutaneous solution See Instructions, Take 40 units once daily. E11.65. 90-day supply., # 45 mL, 3 Refills, Maintenance,11/17/20 10:20:00 EDT, [facility]/pharmacy #[id number], Stop Lantus. Start Levemir., 170, cm, 03/05/20 14:05:00 EST, Height, 82, kg, 03/05/20 14:53:00 EST, Dry Weight Start Date: 11/17/20 Status: Orderedmetoprolol 25 mg oral tablet 25 mg, Tablet, By Mouth, 03/06/21 9:00:00 EST Start Date: 03/06/21 Stop Date: 03/06/21 Status: CompletedMetoprolol Tartrate 25 mg oral tablet [...] hours, PRN for Pain , Moderate, Routine, 03/05/21 14:38:00 EST Start Date: 03/05/21 Stop Date: 03/06/21 Status: DiscontinuedoxyCODONE 5 mg oral tablet 5 [...] Obese class I(Confirmed) Active Care Coordination [facility], Hakan Active Jeanne, CC (Confirmed) delivery(Confirmed) Active delivery(Confirmed) Active 1Not seem at [facility] since 08/12/2016. Multiple no show in our center. She is seen by other provider Dr Matt Gutierrez by pharmacy records. Vital Signs Most recent to oldest [Reference 1 2 3 Range]: Oxygen Saturation [94-100 %] 99 % 96 % 98 % (03/06/21 7:50 AM) (03/06/21 4:55 AM) (03/05/21 7:43 P M) Pulse Rate [55-90 bpm] 85 bpm 85 bpm 75 bpm (03/06/21 8:13 AM) (03/06/21 7:50 AM) (03/06/21 4:55 A M) Blood Pressure [90-138/55-84 mm 144/81 mm Hg 144/81 mm Hg 144/81 mm Hg Hg] *H* *H* *H* (03/06/21 8:13 AM) (03/06/21 8:13 AM) (03/06/21 7:50 A M) Respiratory Rate [16-30 br/min] 17 br/min 17 br/min 19 br/min (03/06/21 11:18 AM) (03/06/21 10:06 AM) (03/06/21 7:50 AM) Temperature [96.8-100.4 DegF] 97.8 DegF 98.8 DegF 98 .5 DegF (03/06/21 7:50 AM) (03/06/21 4:55 AM) (03/05/21 7:43 P M) Mode of Delivery (Oxygen) Room air Room air Room a ir (03/06/21 7:50 AM) (03/06/21 4:55 AM) (03/05/21 7:43 P M) Blood pressure sites Arm, left Arm, left Arm, left (03/06/21 7:50 AM) (03/06/21 4:55 AM) (03/05/21 7:43 P M) Temperature Route Oral Oral Oral (03/06/21 7:50 AM) (03/06/21 4:55 AM) (03/05/21 7:43 P M) Social History Social History Type Response Smoking Status Never smoker entered on: 03/28/17 Sex
--- OUTSIDE RECORDS SUMMARY | 2022-03-31 18:23 | XMS_ITS | Continuity of Care Document ---
:1990 Author Organization [facility] Address [address] [place] [address]- Care Team Providers Name Role Phone Not on Staff, PCP Primary Care Physician Unavailable Encounter [facility] Date(s): 06/24/20 - 07/24/[address] [address] Attending Physician: AdmMichael coyle Admitting Physician: Admtr, Michael Referring Physician: Admtr, [...] '943Admin Note: TD4 Admin Note: unknown exact [id number] Note: unknown exact date Medications aspirin 81 mg oral delayed release tablet 162 mg, 2, tablet, By Mouth, Daily, To begin taking at 12 weeks gestational age - Approx. Apr 14 2020, # 30 tablet, Refills 0, Tot. Refills 0, Maintenance, 03/05/20 14:49:00 EST, Route to Pharmacy Electronically, [facility]/pharmacy #[id number], Partial fill upo... Start Date: 03/05/20 Status: Orderedbedside commode bedside commode, See Instructions, # 1 each, Refills 0, Tot. Refills 0, Maintenance, DX DM E 11.9 using at bedside, 11/14/17 17:17:55 EDT, Compound Start Date: 11/14/17 Status: OrderedDEXCOM G6 REHAB TRAINER DEXCOM G6 REHAB TRAINER, See Instructions, # 1 each, Refills 0, Tot. Refills 0, Maintenance, Use to monitor blood lgucose levels [facility]: 04[address]-33 E10.9, 04/06/20 12:07:00 EST, Supply, 170, cm, 03/05/20 14:05:00 EST, Height, 82, kg, 03/05/20 14:53:00... Start Date: 04/06/20 Status: OrderedDEXCOM G6 SENSOR, 3 PACK DEXCOM G6 SENSOR, 3 PACK, See Instructions, # 3 each, Refills 3, Tot. Refills 3, Maintenance, Use tomonitor blood sugar. E10.9 [facility] [id number], 07/16/20 14:20:00 EDT, Supply Start Date: 07/16/20 Status: OrderedDEXCOM G6 TRANSMITTER DEXCOM G6 TRANSMITTER, See Instructions, # 1 each, Refills 3, Tot. Refills 3, Maintenance, DEXCOM [id number], 07/16/20 14:20:00 EDT, Supply Start Date: 07/16/20 [...] 5 Refills, Maintenance, 06/17/20 13:05:00 EDT, Tablet, [facility]/pharmacy #[id number], Partial fill upon patient request if the prescription is for a schedule II opi... Start Date: 06/17/20 Status: OrderedLevemir FlexTouch 100 units/mL subcutaneous solution See Instructions, Take 40 units once daily. E11.65, # 30 mL, 5 Refills, Maintenance, 02/18/20 16:48:00 EST, [facility]/pharmacy #[id number], Stop Lantus. Start Levemir., 170, [...] Active Care Coordination [facility]-CP, Hakan Active Jeanne, CC (Confirmed) delivery(Confirmed) Active delivery(Confirmed) Active 1Not seem at [facility] since 08/12/2016. Multiple no show in our center. She is seen by other provider Dr Matt Gutierrez by pharmacy records. Social History Social History Type Response Smoking Status Never smoker entered on: 03/28/17 Sex
--- OUTSIDE RECORDS SUMMARY | 2022-03-31 18:23 | XMS_ITS | Continuity of Care Document ---
:1990 Author Organization [facility] Address [address] [place] [address]- Care Team Providers Name Role Phone Not on Staff, PCP Primary Care Physician Unavailable Encounter [facility] Date(s): 05/06/20 - 06/05/20 [facility] [address] [place] [address]- Attending Physician: Michael Marquez Admitting Physician: Michael [...] '943Admin Note: TD4 Admin Note: unknown exact [id number] Note: unknown exact date Medications aspirin 81 mg oral delayed release tablet 162 mg, 2, tablet, By Mouth, Daily, To begin taking at 12 weeks gestational age - Approx. Apr 14 2020, # 30 tablet, Refills 0, Tot. Refills 0, Maintenance, 03/05/20 14:49:00 EST, Route to Pharmacy Electronically, [facility]/pharmacy #[id number], Partial fill upo... Start Date: 03/05/20 Status: Orderedbedside commode bedside commode, See Instructions, # 1 each, Refills 0, Tot. Refills 0, Maintenance, DX DM E 11.9 using at bedside, 11/14/17 17:17:55 EDT, Compound Start Date: 11/14/17 Status: OrderedDEXCOM G6 TRANSCRIPTION COORDINATOR DEXCOM G6 TRANSCRIPTION COORDINATOR, See Instructions, # 1 each, Refills 0, Tot. Refills 0, Maintenance, Use to monitor blood lgucose levels [facility]: [id number] E10.9, 04/06/20 12:07:00 EST, Supply, 170, cm, 03/05/20 14:05:00 EST, Height, 82, kg, 03/05/20 14:53:00... Start Date: 04/06/20 Status: OrderedDEXCOM G6 SENSOR, 3 PACK DEXCOM G6 SENSOR, 3 PACK, See Instructions, # 3 each, Refills 3, Tot. Refills 3, Maintenance, Use tomonitor blood sugar. E10.9 [facility] [id number], 04/06/20 12:07:00 EST, Supply, 170, cm, 03/05/20 14:05:00 EST, Height, 82, kg, 03/05/20 14:53:00 EST... Start Date: 04/06/20 Status: OrderedDEXCOM G6 TRANSMITTER DEXCOM G6 TRANSMITTER, See Instructions, # 2 each, Refills 3, Tot. Refills 3, Maintenance, DEXCOM [id number], 04/06/20 12:07:00 EST, Supply, 170, cm, 03/05/20 [...] 14:48:00 EST, Route to Pharmacy Electronically, [facility]/pharmacy #[id number], Partial fill upon patient request if the prescription is for a s... Start Date: 03/05/20 Status: OrderedNovoLOG FlexPen 100 units/mL subcutaneous solution See Instructions, Max daily dose 50 units, per sliding scale. E11.65, # 30 mL, 5 Refills, Maintenance, 02/05/20 14:37:00 EST, Solution, [facility]/pharmacy #[id number], Partial fill upon patient request if the prescription is for a schedule II opioid drug., 170, c... Start Date: 02/05/20 Status: OrderedPrenatal Multivitamins with Folic Acid 1 mg oral tablet 1 tablet, By Mouth, Daily, # 90 tablet, 2 Refills, Maintenance, 03/05/20 14:51:00 EST, Tablet, [facility] Refills, Maintenance, 04/22/20 16:38:00 EST, Solution, [facility]/pharmacy #[id number], [...] type 2(Confirmed)1 Active Hypertension(Confirmed) Active Care Coordination [facility], Hakan Active Angel, CC (Confirmed) delivery(Confirmed) Active delivery(Confirmed) Active 1Not seem at [facility] since 08/12/2016. Multiple no show in our center. She is seen by other provider Dr Matt Gutierrez by pharmacy records. Vital Signs Most recent to oldest [Reference Range]: 1 Height 173.5 cm (04/13/15 4:09 PM) Social History Social History Type Response Smoking Status Never smoker entered on: 03/28/17 Sex
--- OUTSIDE RECORDS SUMMARY | 2022-03-31 18:23 | XMS_ITS | Continuity of Care Document ---
:1990 Author Organization [facility] Address [address] [place] [address]- Care Team Providers Name Role Phone Abdon Beard MD Primary Care Physician Encounter [facility] Date(s): 12/01/21 - 01/06/22 [facility] [address] [place] [address] Attending Physician: Nupur Box NP Admitting [...] '943Admin Note: TD4 Admin Note: unknown exact [id number] Note: unknown exact date Medications Alcohol Pads [...] 12/13/21 14:16:00 EDT, Route to Pharmacy Electronically, [facility]/pharmacy #[id number], Partial fill upon patient request if the prescriptio... Start Date: 12/13/21 Status: OrderedCoreg 25 mg oral tablet 50 mg, 2, tablet, By Mouth, 2 times a day, # 120 tablet, Refills 0, Tot. Refills 0, Maintenance, 12/13/21 14:16:00 EDT, Route to Pharmacy Electronically, [facility]/pharmacy #[id number], Partial fill upon patient request if the [...] 12/13/21 14:16:00 EDT, Route to Pharmacy Electronically, [facility]/pharmacy #[id number], Partial fill upon patient request if the prescription is for a schedule II op... Start Date: 12/13/21 Status: OrderedLevemir FlexTouch 100 units/mL subcutaneous solution See Instructions, INJECT 8 UNITS SUBCUTANEOUSLY AT BEDTIME FOR 30 DAYS, # 15 Unknown, 0 Refills, Maintenance, 12/19/21 16:07:00 EDT, [id number], 168, cm, 12/13/21 12:57:00 EDT, Height, 90, kg, 12/13/21 11:35:00 EDT, Dry Weight Start Date: 12/19/21 Status: OrderedNIFEdipine (Eqv-Procardia XL) 90 mg oral tablet, extended release 1 tablet = 90 mg, By Mouth, Daily, # 30 tablet, 0 Refills, Maintenance, 12/13/21 14:16:00 EDT, [facility]/pharmacy #[id number], Partial fill upon patient [...] 12/13/21 14:17:00 EDT, Route to Pharmacy Electronically, [facility]/pharmacy #[id number], Partial fill upon elisa... Start Date: 12/13/21 Status: OrderedPeak Flow Meter (Adult) See Instructions, # 1 each, Maintenance, Use when wheezing or chest tightness. Call for peak flow less than 200., 08/24/21 15:17:00 EDT, Supply, 168, cm, 08/24/21 11:41:00 EDT, Height, 75.8, kg, 06/09/21 11:38:00 EDT, Dry Weight Start Date: 08/24/21 Status: OrderedPen [place], 30 G x 8 mm BD Ultra [...] 12/13/21 14:17:00 EDT, Route to Pharmacy Electronically, [facility]/pharmacy #[id number], Partial fill upon patient request if the prescription is f... Start Date: 12/13/21 Status: OrderedTylenol Extra Strength 500 mg oral tablet 2 tablet = 1,000 mg, By Mouth, Every 4 hours, PRN for pain, # 120 tablet, 0 Refills, Maintenance, 12/13/21 14:17:00 EDT, Tablet, [facility]/pharmacy #[id number], Partial fill [...] I Confirmed Active Care Coordination Confirmed Active N-CP, Hakan Angel, CC 1Managed by PCP. WEll controlled.2Self-manages. States currently stable. No medications.3Not seem at [facility] since 08/12/2016. Multiple no show in our center. She is seen by other provider Dr Matt Gutierrez by pharmacy records.4Managed by [email or web address] by PCP with Tylenol Social History Social [...] Care Nurse Name: Keira Desai RN Position: [facility] RN Member Role: Primary Care Nurse Name: Gomez Moseley RN Position: [facility] RN Supv Member Role: Primary Care Nurse Name: Vashti Bruce RN Position: [facility] RN Member Role: Primary Care Nurse Name: Raghav Granger Position: S RN Member Role: Primary Care Nurse Name: Cassy Caraballo RN Position: S RN Member Role: Primary Care Nurse Name: Lisa Vines RN Position: S RN Member Role: Primary Care Nurse Name: Larissa Barnett RN Position: [facility] RN Member Role: Primary Care Nurse Name: Inna Beckwith RN Position: S RN Member Role: Primary Care Nurse Name: Cady Araya RN Position: [facility] RN Member Role: Primary Care Nurse Name: Abdon Beard MD Position: S Outreach Member Role: PCP Address: Address: [address] [place] [address]- Name: Michele Blancas DO Position: [facility] Renal MD Member Role: Lifetime Consulting Physician Address: Address: [address] [place], [place] [address] [place] [place] [address]- Name: María Acosta RN Position: [facility] RN Member Role: Primary [...] Care Nurse Name: Javan Pimentel MD Position: [facility] Renal MD Member Role: Lifetime Consulting Physician Address: Address: [address] [place] [address] [facility], [place] [address]- Name: Heather Pal RN Position: [facility] RN Member Role: Primary Care Nurse Name: Jody Rasmussen RN Position: [facility] RN Member Role: Primary Care Nurse Name: Mau Hazel RN Position: S RN Member Role: Primary Care Nurse Name: Pedro Taylor RN Position: S RN Member Role: Primary Care Nurse Name: Charlotte Singletary RN Position: [facility] OB RN Member Role: Primary Care Nurse Name: Kendall Coleman RN Position: [facility] RN Member Role: Primary Care Nurse Name: Nancy Fair RN Position: [facility] SN RN Member Role: Primary Care Nurse Name: Fernando Siddiqi MD Position: [facility] Renal MD Member Role: Lifetime Consulting Physician Address: Address: [address] [place] [address] [facility] [place] [address]- Name: Lianne Byrnes RN Position: [facility] RN Member Role: Primary Care Nurse Name: Tona Jacome LPN Position: S RN Member Role: Primary Care Nurse Name: Tatiana Madrigal RN Position: S RN Member Role: Primary Care Nurse Care Team Related PersonsName: LEONOR MCFARLAND Address: home [address] [place] [address] Name: REJI TAYLOR Address: home [address] [place] [address] Name: JEFF CHAPMAN Address: [address] Address: home [address] [address] [place] Name: ELI BONILLA
--- OUTSIDE RECORDS SUMMARY | 2022-03-31 18:23 | XMS_ITS | Continuity of Care Document ---
:1990 Author Organization [facility] Address [address] [place] [address]- Care Team Providers Name Role Phone Abdon Beard MD Primary Care Physician Encounter [facility] Date(s): 08/09/21 - 09/08/21 [facility] [address] [place] [address] Allergies, Adverse Reactions, Alerts Substance Reaction Severity Status morphine Itching Active Zosyn1 angioedema Severe Active vancomycin2, 3 Tightness in throat Active 1Tolerates [id number] again Per chart: pt tolerated vanco on [...] '943Admin Note: TD4 Admin Note: unknown exact [id number] Note: unknown exact date Medications acetaminophen 325 [...] 08/24/21 11:43:00 EDT, Route to Pharmacy Electronically, [facility]/pharmacy #[id number], Partial fill upon patient request ifthe prescription [...] 08/24/21 11:44:00 EDT, Route to Pharmacy Electronically, [facility]/pharmacy #[id number], Partial fill u... Start Date: 08/24/21 Status: OrderedLevemir FlexTouch 100 units/mL subcutaneous solution = 8 units, Subcutaneous Injection, Daily at bedtime, # 10 mL, 0 Refills, Maintenance, 08/24/21 11:26:00 EDT, Injection, [facility]/pharmacy #[id number], Partial fill upon patient request if the prescription is for a schedule II opioid drug., 168, cm, 08/24/21 10:3... Start Date: 08/24/21 Stop Date: 09/23/21 Status: OrderedMetoprolol Tartrate 25 mg oral tablet 2 tablet = 50 mg, By Mouth, 2 times a day, # 120 each, 4 Refills, Maintenance, 09/07/21 18:00:00 EDT, Tablet, [facility]/pharmacy #[id number], Partial fill upon patient [...] Dry Weight Start Date: 08/24/21 Status: OrderedPen [place], 30 G x 8 mm BD Ultra [...] Refills, Maintenance, 08/24/21 11:27:00 EDT, Chew Tablet, [facility]/pharmacy #[id number], Partial fill upon patient request if the prescription is for a schedule II opioid drug., 1 tablet Chew Daily, 168, cm, 08/24/21 10:36:0... Start Date: 08/24/21 Status: OrderedProAir HFA 90 mcg/inh inhalation aerosol See Instructions, PRN Wheezing/Shortness of Breath, Inhale 2 puff every 4 to 6 hours as needed, # 18Gm, 0 Refills, Maintenance, 08/24/21 11:43:00 EDT, Inhaler, [facility]/pharmacy #[id number], Partial fill upon patient [...] Acute 09/22/21 0:00:00 EDT, 08/23/21 13:06:00 EDT, [facility]/pharmacy #[id number], Partial fill upon patient [...] Dr Matt Gutierrez by pharmacy records.4Managed by [id number] by PCP with [id number], states sees shadows and has blurry vision. Last eye doctor appointment was several years ago. Social History Social History Type Response Smoking Status Never (less than 100 in life time) entered on: 08/22/21 Sex
--- OUTSIDE RECORDS SUMMARY | 2022-03-31 18:23 | XMS_ITS | Continuity of Care Document ---
:1990 Author Organization [facility] Address [address] [place] [address], [address] [place] [address]- Care Team Providers Name Role Phone Abdon Beard MD Primary Care Physician Encounter [facility] Date(s): 07/22/21 - 08/21/21 [facility] [place] [address] [place] [address], [address] [place] [address] Allergies, Adverse Reactions, Alerts Substance Reaction [...] '943Admin Note: TD4 Admin Note: unknown exact [id number] Note: unknown exact date Medications acetaminophen 325 [...] 06/18/21 9:46:00 EDT, Route to Pharmacy Electronically, [facility], Partial fill upon patient request if the prescription is for a schedule II opioid... Start Date: 06/18/21 Status: Orderedatorvastatin 40 mg oral tablet 1 tablet = 40 mg, By Mouth, Daily at bedtime, Follow-up with your primary care doctor for further refills., # 30 tablet, 1 Refills, Maintenance, 06/18/21 9:46:00 EDT, Tablet, [facility], Partial fill upon patient request if the prescript... Start Date: 06/18/21 Status: Orderedduloxetine 30 mg oral enteric coated capsule 1 capsule = 30 mg, By Mouth, 2 times a day, # 60 capsule, 0 Refills, Maintenance, 06/18/21 9:46:00 EDT, Capsule, [facility], Partial fill upon patient request [...] 3 Refills, Maintenance, 11/17/20 10:19:00 EDT, Tablet, [facility]/pharmacy #[id number], Partial fillupon patient request if the prescription is for a... Start Date: 11/17/20 Status: OrderedLasix 20 mg oral tablet 20 mg, 1, tablet, By Mouth, Every other day, Follow-up with your primary care doctor for further refills., # 30 tablet, Refills 0, Tot. Refills 0, Maintenance, 07/14/21 16:27:00 EDT, Route to Pharmacy Electronically, [facility]/pharmacy #[id number], Partial fill u... Start Date: 07/14/21 Status: OrderedLevemir FlexTouch 100 units/mL subcutaneous solution = 8 units, Subcutaneous Injection, Daily at bedtime, # 10 mL, 0 Refills, Maintenance, 06/19/21 9:20:00 EDT, Injection, [facility], Partial fill upon patient request if the prescription isfor a schedule II opioid drug., 167.6, cm, ... Start Date: 06/19/21 Stop Date: 07/19/21 Status: Orderedlidocaine 5% topical film 1 patch, Topically, Daily, PRN Pain , Mild, remove after 12 hours, # 13 each, 0 Refills, Maintenance, 04/19/21 11:26:00 EST, Film, [facility]/pharmacy #[id number], Partial fill upon patient request if the prescription is for a schedule II opioid drug., 1 patch Top... Start Date: 04/19/21 Status: Orderedlisinopril 5 mg oral tablet 5 mg, 1, tablet, By Mouth, Daily, # 30 tablet, Refills 0, Tot. Refills 0, Maintenance, 07/14/21 16:28:00 EDT, Route to Pharmacy Electronically, [facility]/pharmacy #[id number], Partial fill upon patient [...] 0 Refills, Maintenance, 03/31/21 14:26:00 EST, Tablet, [facility]/pharmacy #[id number], Partial fill... Start Date: 03/31/21 Status: OrderedoxyCODONE 5 mg oral tablet 5 mg, 1, tablet, By Mouth, Every 6 hours, PRN, Refills 0, Tot. Refills 0, Pain , Severe Start Date: 06/09/21 Status: OrderedPen [place], 30 G x 8 mm BD Ultra [...] Refills, Maintenance, 07/24/21 14:28:00 EDT, Chew Tablet, [facility]/pharmacy #[id number], Partial fill upon patient [...] 2(Confirmed)1 Active Hypertension(Confirmed) Active Care Coordination [facility], Hakan Active Angel, CC (Confirmed) delivery(Confirmed) Active delivery(Confirmed) Active 1Not seem at [facility] since 08/12/2016. Multiple no show in our center. She is seen by other provider Dr Matt Gutierrez by pharmacy records. Social History Social History Type Response Smoking Status Never (less than 100 in life time) entered on: 04/23/21 Sex
--- OUTSIDE RECORDS SUMMARY | 2022-03-31 18:23 | XMS_ITS | Continuity of Care Document ---
:1990 Author Organization [facility] Address [address] [place] [address]- Care Team Providers Name Role Phone Not on Staff, PCP Primary Care Physician Unavailable [facility]counter [facility] Date(s): 01/05/20 - 02/04/20 [facility] [address] [place], [place] [address] Allergies, Adverse Reactions, Alerts Substance [...] '943Admin Note: TD4 Admin Note: unknown exact [id number] Note: unknown exact date Medications Bactrim DS 800 mg-160 mg oral tablet 2 tablet, By Mouth, 2 times a day, for 42 days, # 168 tablet, 0 Refills, Acute 02/19/20 14:34:00 EST, 01/08/20 14:34:00 EST, Tablet, [facility], Partial fill upon patient request, 2 tablet By Mouth 2 times a day,x42 days, 170, cm, ... Start Date: 01/08/20 Stop Date: 02/19/20 Status: Orderedbedside commode bedside commode, See Instructions, [...] Orderedinsulin glargine 100 u/ml subcutaneous solution = 40 units, Subcutaneous Injection, Daily at bedtime, # 12 mL, 0 Refills, Maintenance, 01/08/20 13:39:00 EST, Injection, [facility], Partial fill upon patient request, 170, cm, 01/08/20 13:38:00 EST, Height, 99.1, kg, 01/03/20 5:38:00 ES... Start Date: 01/08/20 Stop Date: 02/07/20 Status: Orderedinsulin lispro 100 units/mL injectable solution = 12 units, Subcutaneous Injection, 3 times a day before meals, 15 minutes before or immediately after a meal, # 12 mL, 0 Refills, Maintenance, 01/08/20 13:40:00 EST, Injection, [facility], Partial fill upon patient request, 170, cm, ... Start Date: 01/08/20 Stop Date: 02/07/20 Status: OrderedInsulin Syringe, BD Ultra-Fine 0.5 cc 31 G x 8 mm (5/16in) See Instructions, # 100 each, Refills 3, Tot. Refills 3, Maintenance, Use with humalog sliding scale. Dx: insulin dependent diabetes mellitus, 09/15/16 17:28:29, Compound Start Date: 09/15/16 Status: OrderedInsulin Syringe, BD Ultra-Fine 1 cc 31 G x 8 mm (5/16in) See Instructions, # 120 each, Refills 11, Tot. Refills 11, Maintenance, Use TID and bedtime with insulins, E11.9, 03/23/17 15:12:02, Compound Start Date: 03/23/17 Status: OrderedInsulin Syringe, BD Ultra-Fine 1 cc 31 G x 8 mm (5/16in) See Instructions, # 200 each, Refills 11, Tot. Refills 11, Maintenance, use to administer insulin 4xper day; E11.65, 08/23/16 14:08:17, Compound Start Date: 08/23/16 Status: Orderedlisinopril 5 mg oral tablet 5 mg, 1, tablet, By Mouth, Daily, # 30 tablet, Refills 0, Maintenance, 01/02/20 23:33:00 EST Start Date: 01/02/20 Status: Orderedrifampin 300 mg oral capsule 1 capsule = 300 mg, By Mouth, 2 times a day, for 42 days, # 84 capsule, 0 Refills, Acute 02/19/20 13:43:00 EST, 01/08/20 13:43:00 EST, Capsule, [facility], Partial fill upon patient request, 170, cm, 01/08/20 13:38:00 EST, Height, 99.1,... Start Date: 01/08/20 Stop Date: 02/19/20 Status: Ordered Problem List Condition Effective Dates Status Health Status Informant Asthma(Confirmed) Active Blood group A Rh(D) Active positive(Confirmed) Depression(Confirmed) Active Diabetes mellitus type 2(Confirmed)1 Active Care Coordination [facility], Hakan Angel, CC (Confirmed) 1Not seem at [facility] since 08/12/2016. Multiple no show in our center. She is seen by other provider Dr Matt Gutierrez by pharmacy records. Social History Social History Type Response Smoking Status Never smoker entered on: 03/28/17 Sex
--- OUTSIDE RECORDS SUMMARY | 2022-03-31 18:24 | XMS_ITS | Continuity of Care Document ---
:1990 Author Organization [facility] ic Address [address] [place] [address]- Care Team Providers Name Role Phone Abdon Beard MD Primary Care Physician Encounter [facility] Date(s): 07/23/21 - 08/22/[address] [address]- Allergies, Adverse Reactions, Alerts Substance Reaction Severity [...] '[id number] Note: TD4 Admin Note: unknown exact [id number] Note: unknown exact date Medications acetaminophen 325 [...] 06/18/21 9:46:00 EDT, Route to Pharmacy Electronically, [facility], Partial fill upon patient request if the prescription is for a schedule II opioid... Start Date: 06/18/21 Status: Orderedatorvastatin 40 mg oral tablet 1 tablet = 40 mg, By Mouth, Daily at bedtime, Follow-up with your primary care doctor for further refills., # 30 tablet, 1 Refills, Maintenance, 06/18/21 9:46:00 EDT, Tablet, [facility], Partial fill upon patient request if the prescript... Start Date: 06/18/21 Status: Orderedduloxetine 30 mg oral enteric coated capsule 1 capsule = 30 mg, By Mouth, 2 times a day, # 60 capsule, 0 Refills, Maintenance, 06/18/21 9:46:00 EDT, Capsule, [facility], Partial fill upon patient [...] Refills, Maintenance, 11/17/20 10:19:00 EDT, Tablet, [facility]/pharmacy #[id number], Partial fillupon patient request if the prescription is for a... Start Date: 11/17/20 Status: OrderedLasix 20 mg oral tablet 20 mg, 1, tablet, By Mouth, Every other day, Follow-up with your primary care doctor for further refills., # 30 tablet, Refills 0, Tot. Refills 0, Maintenance, 07/14/21 16:27:00 EDT, Route to Pharmacy Electronically, [facility]/pharmacy #[id number], Partial fill u... Start Date: 07/14/21 Status: OrderedLevemir FlexTouch 100 units/mL subcutaneous solution = 8 units, Subcutaneous Injection, Daily at bedtime, # 10 mL, 0 Refills, Maintenance, 06/19/21 9:20:00 EDT, Injection, [facility], Partial fill upon patient request if the prescription isfor a schedule II opioid drug., 167.6, cm, ... Start Date: 06/19/21 Stop Date: 07/19/21 Status: Orderedlisinopril 5 mg oral tablet 5 mg, 1, tablet, By Mouth, Daily, # 30 tablet, Refills 0, Tot. Refills 0, Maintenance, 07/14/21 16:28:00 EDT, Route to Pharmacy Electronically, [facility]/pharmacy #[id number], Partial fill upon patient [...] Refills, Maintenance, 03/31/21 14:26:00 EST, Tablet, [facility]/pharmacy #[id number], Partial fill... Start Date: 03/31/21 Status: OrderedoxyCODONE 5 mg oral tablet 5 mg, 1, tablet, By Mouth, Every 6 hours, PRN, Refills 0, Tot. Refills 0, Pain , Severe Start Date: 06/09/21 Status: OrderedPen [place], 30 G x 8 mm BD Ultra [...] Maintenance, 07/24/21 14:28:00 EDT, Chew Tablet, [facility]/pharmacy #[id number], Partial fill upon patient request if the [...] Asthma(Confirmed)1 Active Blindness of right eye(Confirmed) Active Blood group A Rh(D) Active positive(Confirmed) H/O Chest pain(Confirmed) Active CKD (chronic kidney disease), stage Active III(Confirmed) IUFD at 20 weeks or more of Active gestation(Confirmed) Depression(Confirmed)2 Active Diabetes mellitus type 2(Confirmed)3 Active Hypertension(Confirmed)4 Active Migraine(Confirmed)5 Active Care Coordination [facility] GONZALEZ Active Jeanne, CC (Confirmed) delivery(Confirmed)6 Active Poor vision(Confirmed)7 Active 1Managed by PCP. WEll controlled.2Self-manages. States currently stable. No medications.3Not seem at [facility] since 08/12/2016. Multiple no show in our center. She is seen by other provider Dr Matt Gutierrez by pharmacy records.4Managed by [id number] by PCP with Ecgrwqi0D/O delivery x 2 ( section for poorly controlled DM)7left eye, states sees shadows and has blurry vision. Last eye doctor appointment was several years ago. Social History Social History Type Response Smoking Status Never (less than 100 in life time) entered on: 08/22/21 Sex
--- OUTSIDE RECORDS SUMMARY | 2022-03-31 18:24 | XMS_ITS | Continuity of Care Document ---
:1990 Author Organization [facility] Address [address] [place] [address]- Care Team Providers Name Role Phone Abdon Beard MD Primary Care Physician Encounter [facility] Date(s): 05/11/21 - 05/12/[address] [address]- Discharge Disposition: A-D/C Walkout Attending Physician: Not [...] '[id number] Note: TD4 Admin Note: unknown exact [id number] Note: unknown exact date Medications amLODIPine 10 mg oral tablet 10 mg, 1, tablet, By Mouth, Daily, # 30 tablet, Refills 5, Tot. Refills 5, Maintenance, 03/31/21 14:26:00 EST, Route to Pharmacy Electronically, [facility]/pharmacy #[id number], Partial fill upon patient request ifthe prescription is for a schedule II opioid drug... Start Date: 03/31/21 Status: Orderedatorvastatin 40 mg oral tablet 1 tablet = 40 mg, By Mouth, Daily at bedtime, Follow-up with your primary care doctor for further refills., # 30 tablet, 1 Refills, Maintenance, 04/26/21 14:51:00 EST, Tablet, [facility],Partial fill upon patient request if the prescrip... Start Date: 04/26/21 Status: Ordereddoxycycline monohydrate 100 mg oral capsule = 100 mg, By Mouth, Daily at bedtime, Take with fluids. May take with food to minimize abdominal discomfort. Take at bedtime or 6 hours after iron tablet., # 30 each, 0 Refills, Maintenance, 04/27/21 7:07:00 EST, Capsule, [facility], Par... Start Date: 04/27/21 [...] 3 Refills, Maintenance, 11/17/20 10:19:00 EDT, Tablet, [facility]/pharmacy #[id number], Partial fillupon patient request if the prescription is for a... Start Date: 11/17/20 Status: OrderedLasix 20 mg oral tablet 20 mg, 1, tablet, By Mouth, Daily, Follow-up with your primary care doctor for further refills., # 30 tablet, Refills 0, Tot. Refills 0, Maintenance, 04/26/21 14:52:00 EST, Route to Pharmacy Electronically, [facility], Partial fill upon... Start Date: 04/26/21 Status: OrderedLevemir FlexTouch 100 units/mL subcutaneous solution INJECT 43 UNITS SUBCUTANEOUSLY ONCE DAILY Start Date: 04/23/21 Status: Orderedlidocaine 5% topical film 1 patch, Topically, Daily, PRN Pain , Mild, remove after 12 hours, # 13 each, 0 Refills, Maintenance, 04/19/21 11:26:00 EST, Film, [facility]/pharmacy #[id number], Partial fill upon patient [...] 04/26/21 14:52:00 EST, Route to Pharmacy Electronically, [facility], Partial fi... Start Date: 04/26/21 Status: Orderednitroglycerin 0.4 mg sublingual tablet 1 tablet = 0.4 mg, Sublingual, Every 5 minutes, PRN as needed for chest pain, not to exceed 3 doses/15 min--if pain persists, seek medical attention, # 25 tablet, 0 Refills, Maintenance, 03/31/21 14:26:00 EST, Tablet, [facility]/pharmacy #[id number], Partial fill... Start Date: [...] type 2(Confirmed)1 Active Hypertension(Confirmed) Active Care Coordination [facility], Hakan Active Angel, CC (Confirmed) delivery(Confirmed) Active delivery(Confirmed) Active 1Not seem at [facility] since 08/12/2016. Multiple no show in our center. She is seen by other provider Dr Matt Gutierrez by pharmacy records. Vital Signs Most recent to oldest 1 2 3 [Reference Range]: Oxygen Saturation [94-100 %] 99 % 100 % 99 % (05/11/21 9:48 PM) (05/11/21 7:20 PM) (05/11/21 7:0 9 PM) Pulse Rate [55-90 bpm] 100 bpm 103 bpm 85 bpm *H* *H* (05/11/21 7:09 PM ) (05/11/21 9:48 PM) (05/11/21 7:20 PM) Blood Pressure [90-138/55-84 mm 154/80 mm Hg 148/86 mm Hg Hg] *H* *H* (05/11/21 9:48 PM) (05/11/21 7:20 PM) Temperature [96.8-100.4 DegF] 98.0 DegF 98.1 DegF (05/11/21 9:48 PM) (05/11/21 7:20 PM) Mode of Delivery (Oxygen) Room air Room air (05/11/21 9:48 PM) (05/11/21 7:20 PM) Blood pressure sites Arm, left Arm, right (05/11/21 9:48 PM) (05/11/21 7:20 PM) Temperature Route Oral Oral (05/11/21 9:48 PM) (05/11/21 7:20 PM) Social History Social History Type Response Smoking Status Never (less than 100 in life time) entered on: 04/23/21 Sex
--- OUTSIDE RECORDS SUMMARY | 2022-03-31 18:24 | XMS_ITS | Continuity of Care Document ---
:1990 Author Organization [facility] ic Address [address] [place] [address]- Care Team Providers Name Role Phone Abdon Beard MD Primary Care Physician Encounter [place] Date(s): 09/13/21 - 10/13/[address] [address] Attending Physician: Michael Marquez Admitting Physician: Michael Marquez Referring Physician: AdmtrMichael Allergies, Adverse Reactions, Alerts [...] '[id number] Note: TD4 Admin Note: unknown exact [id number] Note: unknown exact date Medications acetaminophen 325 [...] 08/24/21 11:43:00 EDT, Route to Pharmacy Electronically, [facility]/pharmacy #[id number], Partial fill upon patient request ifthe prescription is for a schedule II opioid drug... Start Date: 08/24/21 Status: Orderedaspirin 81 mg oral delayed release tablet 2 tablet = 162 mg, By Mouth, Daily, # 90 tablet, 3 Refills, Maintenance, 10/05/21 12:28:00 EDT, CR Tablet, [facility]/pharmacy #[id number], Partial fill upon patient request if the [...] 08/24/21 11:44:00 EDT, Route to Pharmacy Electronically, [facility]/pharmacy #[id number], Partial fill u... Start Date: 08/24/21 Status: OrderedLevemir FlexTouch 100 units/mL subcutaneous solution = 8 units, Subcutaneous Injection, Daily at bedtime, # 10 mL, 0 Refills, Maintenance, 08/24/21 11:26:00 EDT, Injection, [facility]/pharmacy #[id number], Partial fill upon patient [...] Dry Weight Start Date: 08/24/21 Status: OrderedPen [place], 30 G x 8 mm BD Ultra [...] Refills, Maintenance, 08/24/21 11:27:00 EDT, Chew Tablet, [facility]/pharmacy #[id number], Partial fill upon patient request if the prescription is for a schedule II opioid drug., 1 tablet Chew Daily, 168, cm, 08/24/21 10:36:0... Start Date: 08/24/21 Status: OrderedProAir HFA 90 mcg/inh inhalation aerosol See Instructions, PRN Wheezing/Shortness of Breath, Inhale 2 puff every 4 to 6 hours as needed, # 18Gm, 0 Refills, Maintenance, 08/24/21 11:43:00 EDT, Inhaler, [facility]/pharmacy #[id number], Partial fill upon patient [...] Active Obese class I(Confirmed) Active Care Coordination [facility] GONZALEZ, CC (Confirmed) Pre-existing diabetes mellitus Active affecting , antepartum(Confirmed) Poor vision(Confirmed)6 Active 1Managed by PCP. WEll controlled.2Self-manages. States currently stable. No medications.3Not seem at [place] since 08/12/2016. Multiple no show in our center. She is seen by other provider Dr Matt Gutierrez by pharmacy records.4Managed by [id number] by PCP with [id number] eye, states sees shadows and has blurry vision. Last eye doctor appointment was several years ago. Vital Signs Most recent to oldest [Reference Range]: 1 Height 173.5 cm (04/13/15 4:09 PM) Social History Social History Type Response Smoking Status Never (less than 100 in life time) entered on: 08/22/21 Sex
--- OUTSIDE RECORDS SUMMARY | 2022-03-31 18:24 | XMS_ITS | Continuity of Care Document ---
:1990 Author Organization [facility] Address [address] [place] [address]- Care Team Providers Name Role Phone Chirag CARLSON, Abdon Primary Care Physician Encounter [facility] Date(s): 06/16/21 - 09/01/21 [facility] [address] [place] [id number] Attending Physician: Adan Angel MD Admitting Physician: Adan Angel MD Referring Physician: Abdon Beard MD Allergies, [...] '943Admin Note: TD4 Admin Note: unknown exact [id number] Note: unknown exact date Medications acetaminophen 325 [...] 08/24/21 11:43:00 EDT, Route to Pharmacy Electronically, [facility]/pharmacy #[id number], Partial fill upon patient request ifthe prescription [...] capsule, 3 Refills, Maintenance, 08/24/21 11:44:00EDT, Capsule, [facility]/pharmacy #[id number], Partial fill upon patient request if the [...] 08/24/21 11:44:00 EDT, Route to Pharmacy Electronically, [facility]/pharmacy #[id number], Partial fill u... Start Date: 08/24/21 Status: OrderedLevemir FlexTouch 100 units/mL subcutaneous solution = 8 units, Subcutaneous Injection, Daily at bedtime, # 10 mL, 0 Refills, Maintenance, 08/24/21 11:26:00 EDT, Injection, [facility]/pharmacy #[id number], Partial fill upon patient request if the prescription is for a schedule II opioid drug., 168, cm, 08/24/21 10:3... Start Date: 08/24/21 Stop Date: 09/23/21 Status: OrderedMetoprolol Tartrate 25 mg oral tablet 1.5 tablet = 37.5 mg, By Mouth, 2 times a day, # 90 tablet, 3 Refills, Maintenance, 08/24/21 11:44:00 EDT, Tablet, [facility]/pharmacy #[id number], Partial fill upon patient [...] Dry Weight Start Date: 08/24/21 Status: OrderedPen [place], 30 G x 8 mm BD Ultra [...] Refills, Maintenance, 08/24/21 11:27:00 EDT, Chew Tablet, [facility]/pharmacy #[id number], Partial fill upon patient [...] Active Obese class I(Confirmed) Active Care Coordination [facility], Hakan Active Jeanne, CC (Confirmed) Pre-existing diabetes mellitus Active affecting , antepartum(Confirmed) Poor vision(Confirmed)6 Active 1Managed by PCP. WEll controlled.2Self-manages. States currently stable. No medications.3Not seem at [facility] since 08/12/2016. Multiple no show in our center. She is seen by other provider Dr Matt Gutierrez by pharmacy records.4Managed by [id number] by PCP with [id number] eye, states sees shadows and has blurry vision. Last eye doctor appointment was several years ago. Social History Social History Type Response Smoking Status Never (less than 100 in life time) entered on: 08/22/21 Sex
--- OUTSIDE RECORDS SUMMARY | 2022-03-31 18:24 | XMS_ITS | Continuity of Care Document ---
:1990 Author Organization [facility] Address [address] [place] [address]- Care Team Providers Name Role Phone Chirag CARLSON, Abdon Primary Care Physician [place] [facility] [place]): [place]13[place]22 - 02/14/[address] [address]- Encounter Diagnosis Influenza (Final) - 02/13/22 Abdominal pain (Final) - 02/13/22 Nausea (Final) - 02/13/22 Congestive heart failure (Final) - 02/13/22 Discharge Disposition: A-D/C Home Attending Physician: Nirmala Silvestre MD Admitting Physician: Marlon Boland MD Referring Physician: Not on Staff, Referring [...] (old term) 03/13/02 Given tetanus-diphtheria toxoids (Td)3 1/16/03 Given Measles/Mumps/Rubella Virus Vaccine 07/15/95 Given Measles/Mumps/Rubella [...] '943Admin Note: TD4 Admin Note: unknown exact [id number] Note: unknown exact date Medications Alcohol Pads See Instructions, # 600 each, Refills 2, Tot. Refills 2, Maintenance, use as directed for Type 1 Diabetes Mellitus, 06/18/21 9:50:00 EDT, Supply, 167.6, cm, 06/18/21 8:09:00 EDT, Height, 75.8, kg, 06/09/21 11:38:00 EDT, Dry Weight Start Date: 06/18/21 Stop Date: 03/15/22 Status: OrderedamLODIPine 5 mg oral tablet 1 tablet = 5 mg, By Mouth, Daily, Maintenance, 02/13/22 11:23:00 EST, Tablet, ; Start Date: 02/13/22 Status: OrderedAspirin Low Dose 81 mg oral delayed release tablet 2 tablet = 162 mg, By Mouth, Daily, Maintenance, 02/13/22 11:23:00 EST, CR Tablet, ; Start Date: 02/13/22 Status: OrderedBlood Pressure Monitor See Instructions, # 1 kit, Maintenance, To test blood pressures 2 x day. Severe HTN in , 08/31/21 12:03:00 EDT, Supply Start Date: 08/31/21 Status: Orderedcarvedilol 25 mg oral tablet 25 mg, By Mouth, 2 times a day, # 60 tablet, Refills 1, Tot. Refills 1, Maintenance, 02/02/22 15:17:00 EST, Route to Pharmacy Electronically, [id number], Partial fill upon patient request if the prescription is for a schedule II opioid drug.,... Start Date: 02/02/22 Status: OrderedCrestor 5 mg oral tablet 1 tablet = 5 mg, By Mouth, Daily, # 30 tablet, 0 Refills, Maintenance, 01/19/22 13:30:00 EST, Tablet, [facility]/pharmacy #[id number], Partial fill upon patient request if the prescription is for a schedule II opioid drug., 160, cm, 01/19/22 8:55:00 EST, Height, 9... Start Date: 01/19/22 Status: OrderedDilaudid Inj 1 mg, Injection, IV Push Slowly, Every 6 hours for 1 days, PRN for Pain , Severe, Severe pain, Routine, 02/13/22 12:12:00 EST, Stop date 02/14/22 12:11:00 EST Start Date: 02/13/22 Stop Date: 02/14/22 Status: Completedduloxetine 30 mg oral enteric coated capsule 1 capsule = 30 mg, By Mouth, Daily, # 30 capsule, 1 Refills, Maintenance, 02/02/22 15:18:00 EST, Capsule, [facility]/pharmacy #[id number], Partial [...] Start Date: 06/18/21 Stop Date: 03/15/22 Status: Orderedfurosemide 40 mg oral tablet 40 mg, 1, tablet, By Mouth, Daily, Maintenance, 02/13/22 11:23:00 EST, ; Start Date: 02/13/22 Status: OrderedhydrALAZINE 50 mg oral tablet 1 tablet = 50 mg, By Mouth, 3 times a day, Maintenance, 02/13/22 11:23:00 EST, Tablet, ; Start Date: 02/13/22 Status: OrderedhydrALAZINE Inj 5 mg, Injection, IV Push Slowly, Hold for: Systolic BP<110 mm Hg, 02/14/22 9:00:00 EST Start Date: 02/14/22 Stop Date: 02/14/22 Status: CompletedLevemir FlexTouch 100 units/mL subcutaneous solution = 8 units, Subcutaneous Injection, Daily at bedtime, (NOT TAKING & HASN'T IN MONTHS), Maintenance, 02/13/22 11:19:00 EST, ; Start Date: 02/13/22 Status: Orderedlisinopril 10 mg oral tablet 10 mg, 1, tablet, By Mouth, Daily, Maintenance, 02/13/22 11:23:00 EST, ; Start Date: 02/13/22 Status: OrderedMetoprolol Succinate ER 100 mg oral tablet, extended release 2 tablet = 200 mg, By Mouth, Daily, (FILLED NEVER PICKED UP & NEVER STARTED THIS NEW DOSE), Maintenance, 02/13/22 11:23:00 EST, ER Tablet, ; Start Date: 02/13/22 Status: OrderedMetoprolol Tartrate 25 mg oral tablet 2 tablet = 50 mg, By Mouth, 2 times a day, (SHOULD HAVE STOPPED & STARTED NEW DOSE), Maintenance, 02/13/22 11:29:00 EST, ; Start Date: 02/13/22 Status: OrderedNIFEdipine 60 mg oral tablet, extended release 60 mg, 1, tablet, By Mouth, Daily, # 30 tablet, Refills 0, Tot. Refills 0, Maintenance, 02/02/22 15:17:00 EST, Route to Pharmacy Electronically, [facility]/pharmacy #[id number], Partial fill upon patient request ifthe prescription is for a schedule II opioid drug... Start Date: 02/02/22 Status: OrderedNovoLOG FlexPen 100 units/mL injectable solution 11-12 UNITS, Subcutaneous Injection, 3 times a day before meals, (NOT TAKING & HASN'T IN MONTHS), Maintenance, 02/13/22 11:19:00 EST, ; Start Date: 02/13/22 Status: OrderedoxyCODONE 5 mg oral tablet 5 mg, 1, tablet, By Mouth, Every 6 hours, PRN, Refills 0, Tot. Refills 0, Maintenance, as needed forpain, 02/13/22 11:23:00 EST, ; Start Date: 02/13/22 Status: OrderedPeak Flow Meter (Adult) See Instructions, # 1 each, Maintenance, Use when wheezing or chest tightness. Call for peak flow less than 200., 08/24/21 15:17:00 EDT, Supply, 168, cm, 08/24/21 11:41:00 EDT, Height, 75.8, kg, 06/09/21 11:38:00 EDT, Dry Weight Start Date: 08/24/21 Status: OrderedPen [place], 30 G x 8 mm BD Ultra Fine II See Instructions, # 300 each, Refills 2, Tot. Refills 2, Maintenance, use as directed for Type 2 Diabetes Mellitus, 06/18/21 9:51:00 EDT, Supply, 167.6, cm, 06/18/21 8:09:00 EDT, Height, 75.8, kg, 06/09/21 11:38:00 EDT, Dry Weight Start Date: 06/18/21 Stop Date: 03/15/22 Status: Orderedtorsemide 20 mg oral tablet 1 tablet = 20 mg, By Mouth, Daily, # 30 tablet, 0 Refills, Maintenance, 02/02/22 15:22:00 EST, Tablet, [facility]/pharmacy #[id number], Partial fill upon patient request if the [...] Migraine5 Confirmed Active Care Coordination Confirmed Active [facility], Hakan Angel, CC 1Managed by PCP. WEll controlled.2Self-manages. States currently stable. No medications.3Not seem at [facility] since 08/12/2016. Multiple no show in our center. She is seen by other provider Dr Matt Gutierrez by pharmacy records.4Managed by [id number] by PCP with Tylenol Results Radiology Reports Exam Date Time Procedure Performing Provider Status 02/13/22 6:18 AM Chest Portable Campo , Tomás; Auth (Verified) Notes:(Chest Portable) Reason For Exam: CHFRESULT: Chest Portable Chest Portable Hx of Present Illness: Pt resting in wheelchair. Pt reports abd pain x 2 days. Main pain in RLQ. Pt reports not being able to hold anything down due to emesis. Pt reports lack of urine also.; Reason: CHF; Clinical Question(s): CHF COMPARISON: 01/23/2022. FINDINGS: LINES AND TUBES: None. LUNGS AND PLEURA: Clear lungs. Normal pulmonary vascularity. Small pleural effusions. No pneumothorax. HEART, MEDIASTINUM AND EVERT: Unchanged. BONES AND SOFT TISSUES: No acute abnormality. IMPRESSION: Persistent small bilateral pleural effusions. WSN: [id number] Ordering Physician: Jody Carlos Dictated By: Charlotte Rhoades MD Dictated Date/Time: 02/13/22 8:01 am Reviewed By: Charlotte Rhoades MD Signed By: Charlotte Rhoades MD Signed Date/Time: 02/13/22 8:01 am Transcribed By: ALEXIS Transcribed Date/Time: 02/13/22 7:59 am Exam Date Time Procedure Performing Provider Status 02/13/22 2:[address] Abdomen and Pelvis W/O Keshawn Prabhakar; Auth (Verified) Contrast Notes:(CT Abdomen and Pelvis W/O Contrast) Reason For Exam: RLQ abdominal pain;Other:RESULT: CT Abdomen and Pelvis W/O Contrast CT Abdomen and Pelvis W/O Contrast HX OF PRESENT ILLNESS: Pt resting in wheelchair. Pt reports abd pain x 2 days. Main pain in RLQ. Pt reports not being able to hold anything down due to emesis. Pt reports lack of urine also.; Reason: RLQ abdominal pain; Clinical Question(s): Obstruction TECHNIQUE: Spiral CT through the abdomen and pelvis without IV contrast formatted in 3 planes. This study was performed without oral contrast. Weight- based protocol using automatic tube modulation was used to optimize exposure parameters. CTDIvol Body: 15.30 mGy, DLP Body: 887 mGy*cm. COMPARISON: CT 01/26/2022 FINDINGS: Sequins Spooler View Findings, Lines and Tubes: None. Visualized Chest: Mild septal thickening, likely due to interstitial edema at the lung bases. No consolidations. Small bilateral pleural effusions have mildly improved. The heart is normal in size. Unchanged small pericardial effusion. There is decreased attenuation of the intracardiac blood relative to the myocardium, consistent with anemia. Diaphragm: Normal. Liver: Normal. Gallbladder: Absent consistent with prior cholecystectomy. Bile ducts: No biliary ductal dilation. Spleen: Normal. Pancreas: Normal. Adrenal glands: Normal. Kidneys and ureters: No hydronephrosis or noncontrast evidence of suspicious masses. Hyperdensity measuring up to 2.1 cm in the posterior perinephric space likely represents a small postbiopsy hematoma(axial 61). Punctate nonobstructing left upper pole renal calculus. Bladder: Normal. Reproductive organs: Unremarkable. Stomach, small bowel, and large bowel: Normal. Appendix: Normal. Peritoneum and retroperitoneum: No ascites or pneumoperitoneum. No omental or mesenteric lesions. Lymph nodes: Mildly enlarged para-aortic lymph nodes measuring up to 1.1 cm short axis and bilateralexternal iliac lymph nodes measuring up to 1.1 cm short axis, similar to prior. Blood vessels: Normal. No aneurysm. Abdominal and pelvic wall: scar. Bones: No acute abnormality. Disc space narrowing and endplate degenerative changes at L4-L5. IMPRESSION: 1. No evidence of bowel obstruction as questioned. 2. 2.1 cm right retroperitoneal hematoma in the posterior perinephric space, likely related to recent renal biopsy. 3. Unchanged abdominopelvic adenopathy. 4. Mild interstitial edema at the lung bases. 5. Improved small bilateral pleural effusions. 6. Unchanged small pericardial effusion. I have personally reviewed the images and I agree with this report. WSN: [id number] Ordering Physician: Jody Carlos Dictated By: Danny Álvarez MD Dictated Date/Time: 02/13/22 7:40 am Reviewed By: Mihai Germain MD Signed By: Mihai Germain MD Signed Date/Time: 02/13/22 7:45 am Transcribed By: ALEXIS Transcribed Date/Time: 02/13/22 3:10 am Exam Date Time Procedure Performing Provider Status 02/13/22 2:21 AM US Appendix Rolo Fonseca; Nicol (Verified) Notes:(US Appendix) Reason For Exam: Abdominal Pain;Other:RESULT: US Appendix US Appendix Hx of Present Illness: Pt resting in wheelchair. Pt reports abd pain x 2 days. Main pain in RLQ. Pt reports not being able to hold anything down due to emesis. Pt reports lack of urine also.; Reason: Other:; Abdominal Pain; Clinical Question(s): Appendicitis COMPARISON: CT 01/26/2022, US appendix 07/20/2021. IMAGING TECHNIQUE: High-resolution graded compression sonography was performed using a linear array transducer at the expected locations of the appendix and at the patient's maximal point of tenderness. FINDINGS: Appendix: The appendix is not visualized. Right lower quadrant bowel loops are normal in caliber. Nofocal bowel wall thickening or inflammatory change at the site of maximal tenderness. Fluid: None. Abscess: No abscess or organized fluid collection. Lymph nodes: No regional lymphadenopathy. Additional findings: Unremarkable right ovary. IMPRESSION: Appendix not visualized. No secondary findings to suggest appendicitis. Normal right ovary. I have personally reviewed the images and I agree with this report. WSN: [id number] Ordering Physician: Jody Carlos Dictated By: Danny Álvarez MD Dictated Date/Time: 02/13/22 7:27 am Reviewed By: Akil Stern MD Signed By: Akil Stern MD Signed Date/Time: 02/13/22 7:32 am Transcribed By: ALEXIS Transcribed Date/Time: 02/13/22 2:45 am Vital Signs Most recent to oldest 1 2 3 [Reference Range]: Height 168 cm 168 cm 168 cm (02/14/22 4:43 PM) (02/14/22 11:32 AM) (02/14/22 8:59 AM) Weight 86.36 kg 86.36 kg 86.36 kg (02/14/22 4:43 PM) (02/14/22 11:32 AM) (02/14/22 8:59 AM) Oxygen Saturation [94-100 100 % 98 % 100 % %] (02/14/22 11:29 AM) (02/14/22 8:59 AM) (02/14/22 6:27 AM) Pulse Rate [55-90 bpm] 103 bpm 102 bpm 96 bpm *H* *H* *H* (02/14/22 11:29 AM) (02/14/22 6:27 AM) (02/14/22 4:25 AM) Body Mass Index 30.6 kg/m2 30.6 kg/m2 30.6 kg/m2 [18.5-24.99 kg/m2] *>HHI* *>HHI* *>HHI* (02/14/22 4:43 PM) (02/14/22 11:32 AM) (02/14/22 8:59 AM) Blood Pressure 164/92 mm Hg 160/93 mm Hg 160/93 mm Hg [90-138/55-84 mm Hg] *H* *H* *H* (02/14/22 11:29 AM) (02/14/22 9:04 AM) (02/14/22 8:59 AM) Respiratory Rate [16-30 16 br/min 18 br/min 18 br/mi n br/min] (02/14/22 4:43 PM) (02/14/22 11:29 AM) (02/14/22 9:04 AM) Temperature [96.8-100.4 97.7 DegF 98.0 DegF 98.0 Deg F DegF] (02/14/22 11:32 AM) (02/13/22 8:51 PM) (02/13/22 2:53 PM) Mode of Delivery (Oxygen) Room air Room air Room a ir (02/14/22 11:29 AM) (02/14/22 8:59 AM) (02/14/22 6:27 AM) Blood pressure sites Arm, left Arm, left Arm, left (02/14/22 11:29 AM) (02/14/22 8:59 AM) (02/14/22 6:27 AM) Temperature Route Oral Oral Oral (02/14/22 11:32 AM) (02/13/22 8:51 PM) (02/13/22 2:53 PM) Weight Obtained Via Patient/family stated (02/12/22 11:40 PM) Social History Social History Type Response Smoking Status Never (less than 100 in life time) entered on: 08/22/21 Sex Admission evaluation note Chai CARLSON, Emir Cheng: MODIFY, PERFORM, MODIFY Event Display: Admission Note Authored Date: Patient: ??ROWAN TAYLOR ? Age:??31 Years?Sex:??Female?:??1990?? Chief Complaint/Reason for Consultation abd pain, N/V x3 days History of Present Illness 31-year-old female with past medical history of CKD??3/, diabetic kidney disease,??nonischemic cardiomyopathy with an ejection fraction 40-45%, legally blind,??recent history of preeclampsia??resulting in?? demise requiring C- section??on 12/09/2021. ??She now presents to [facility] ER??wi th??nausea, vomitings??for the past 3 to 4 days.?? She complained of??cough and nasal congestion, shortness of breath.?? She feels like her chest is congested.?? Creatinine level 2.5??down from 3.7;??patient is afebrile.?? Blood pressures??are elevated??in the 180s.?Influenza A is positive.?? The patient is being admitted to [facility] for further evaluation and treatment. Review of Systems Constitutional: No fever HEENT: No visual loss, blurred vision, double vision or yellow sclera. No runny nose or sore throat. Cardiovascular: No chest pain, palpitations or pedal edema. Respiratory:??Shortness of breath, cough, nasal congestion Gastrointestinal: No nausea, vomiting or diarrhea. No abdominal pain.?? Neurologic: No headache, dizziness, unilateral weakness, numbness or tingling in the extremities. Objective Measurements?? Height: 168 cm (02/13/22) Weight: 86.36 kg (02/13/22) Body Mass Index:??30.6 kg/m2??Critical (02/13/22) ? Vital Signs?? Temperature: 98.8 DegF (02/13/22 08:08:00) Temperature Route: Oral (02/13/22 08:08:00) Pulse Rate:??101 bpm??High (02/13/22 12:02:00) Respiratory Rate: 16 br/min (02/13/22 12:33:00) Vented: No (02/13/22 06:43:00) Systolic Blood Pressure:??184 mm Hg??High (02/13/22 12:02:00) Diastolic Blood Pressure:??108 mm Hg??High (02/13/22 12:02:00) Blood pressure sites: Arm, left (02/13/22 12:02:00) Mean Arterial Pressure: 128 mm Hg (02/13/22 03:10:00) Pulse Pressure: 76 mm Hg (02/13/22 12:02:00) Oxygen Saturation: 99 % (02/13/22 12:02:00) Mode of Delivery (Oxygen): Room air (02/13/22 12:02:00) Early Warning Score: 4 (02/13/22 12:34:55) ? Intake/Output? No Data Available ?? Precautions Droplet Precautions ?? Mobility & Ambulation Level Mobility & Ambulation Level?? No qualifying data available. ? Physical Exam General: Patient is??legally blind Mental Status: Oriented to person, place and time. Head: Normocephalic. Neck: Supple Respiratory: Clear to auscultation and percussion. No wheezing, rales or rhonchi. Cardiovascular: Heart sounds normal. No thrills. Regular rate and rhythm, no murmurs, rubs or gallops. Gastrointestinal: Abdomen soft, non-tender, non-distended. Normal bowel sounds.?? Neurologic:??No focal neurological deficits. Sensation intact bilaterally. Skin: No rashes or lesions.?? Musculoskeletal: No cyanosis Assessment/Plan Diagnoses Abdominal pain ??(R10.9) Congestive heart failure ??(I50.9) Influenza ??(J11.1) Nausea ??(R11.0) ?? Assessment:??31-year-old female with past medical history of CKD 3/4, diabetic kidney disease, nonischemic cardiomyopathy with an ejection fraction 40-45%, legally blind eye, recent history of preeclampsia resulting in demise requiring on 12/09/2021. She now presents to [facility] ER with nausea, vomitings, abdominal pain??for the past 3 to 4 days. She complained of cough and nasal congestion, shortness of breath. She feels like her chest is congested. Creatinine level 2.5 down from 3.7; patient is afebrile. Blood pressures are elevated in the 180s. Influenza A is positive. The patient is being admitted to [facility] for further evaluation and treatment. ? 1.?Influenza A: Patient has been??cough,??nasal congestion??for the past??1 to 2 days Requested viral panel Influenza A??is positive I have started the patient??on Tamiflu??course Droplet precautions Patient is saturating well:??99% on room air ? 2.?Nonischemic cardiomyopathy: Chronic systolic CHF: EF??40 to 45% I had asked proBNP??to the labs Patient is saturating well 99% on room air??and not requiring oxygen ? 3.?Hypertensive??urgency: Blood pressure is??high??183/105??mmHg Metoprolol XL 200 mg daily??and nifedipine 60 mg daily Torsemide 40 mg daily I have added as needed IV hydralazine??to titrate the blood pressure ? 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 5.?Nausea/vomiting: Improving now QTc interval is??increased??512 We will hold??metoclopramide??Zofran??for now??in view of prolonged QTc interval Ordered prochlorperazine ? 6.?Diabetes mellitus: POCs??are reasonable Patient??apparently is not taking insulin We will monitor POCs??and if??that increased??then may??start gentle??sliding scale insulin ?? 7.?DVT prophylaxis:??We will avoid heparin products??in view of??small retroperitoneal hematoma Will??hold heparin products??and anticoagulants??for now. I have ordered??pneumatic compression boots??for DVT prophylaxis Diet:??Cardiac/diabetic diet??with fluid restriction ? Discharge Planning:? Histories Allergies Allergies ?(Active and Proposed Allergies [...] Cardiac disease during , antepartum Care Coordination [facility], Hakan Angel, CC CKD (chronic kidney disease), [...] toe Amputation of all right toes Repeat 2013 Cholecystectomy Amputation of right great toe Diabetic [...] Brother: Diabetes mellitus ? Medications Home Medications Amlodipine (amLODIPine 5 mg oral tablet)?1?tab(s)?5?Milligram?By Mouth?Daily Aspirin (Aspirin Low Dose 81 mg oral delayed release tablet)?2?tab(s)?162?Milligram?By Mouth?Daily Carvedilol (carvedilol 25 mg oral tablet)?25?Milligram?By Mouth?2 times a day Duloxetine (duloxetine 30 mg oral enteric coated capsule)?1?capsule?30?Milligram?By Mouth?Daily Durable Medical Equipment (Freestyle Lancets)?See Instructions?for 90?Days?use as directed for Type 2 Diabetes Mellitus Durable Medical Equipment (Alcohol Pads)?See Instructions?for 90?Days?use as directed for Type 1 Diabetes Mellitus Durable Medical Equipment (Freestyle Test Strips)?See Instructions?for 90?Days?use as directed for Type 1 Diabetes Mellitus Durable Medical Equipment (Pen [place], 30 G x 8 mm BD Ultra Fine II)?See Instructions?for 90?Days?use as directed for Type 2 Diabetes Mellitus Durable Medical Equipment (Peak Flow Meter (Adult))?See Instructions?Use when wheezing or chest tightness. Call for peak flow less than 200. Durable Medical Equipment (Blood Pressure Monitor)?See Instructions?To test blood pressures 2x day. Severe HTN in Furosemide (furosemide 40 mg oral tablet)?40?Milligram?1?tablet?By Mouth?Daily hydrALAZINE (hydrALAZINE 50 mg oral tablet)?1?tab(s)?50?Milligram?By Mouth?3 times a day Insulin Aspart (NovoLOG FlexPen 100 units/mL injectable solution)?11-12 UNITS?Subcutaneous Injection?3 times a day before meals?(NOT TAKING & HASN'T IN MONTHS) Insulin Detemir (Levemir FlexTouch 100 units/mL subcutaneous solution)?8?unit(s)?Subcutaneous Injection?Daily at bedtime?(NOT TAKING & HASN'T IN MONTHS) Lisinopril (lisinopril 10 mg oral tablet)?10?Milligram?1?tablet?By Mouth?Daily Metoprolol (Metoprolol Succinate ER 100 mg oral tablet, extended release)?2?tab(s)?200?Milligram?By Mouth?Daily?(FILLED NEVER PICKED UP & NEVER STARTED THIS NEW DOSE) Metoprolol (Metoprolol Tartrate 25 mg oral tablet)?2?tab(s)?50?Milligram?By Mouth?2 times a day?(SHOULD HAVE STOPPED & STARTED NEW DOSE) Miscellaneous Rx (FREESTYLE LIT [facility])?See Instructions?GLUCOSE MONITORING 4 TIMES A DAY DURING Miscellaneous Rx (FREESTYLE LITE STRIPS)?See Instructions?GLUCOSE MONITORING 4 TIMES PER DAY DURING THE Miscellaneous Rx (FREESTYLE LITE GLUCOSE METER)?See Instructions?FOR GLUCOSE MONITORING DURING THE NIFEdipine (NIFEdipine 60 mg oral tablet, extended release)?60?Milligram?1?tablet?ByMouth?Daily Oxycodone (oxyCODONE 5 mg oral tablet)?5?Milligram?1?tablet?By Mouth?Every 6 hours?as needed?as needed for pain Rosuvastatin (Crestor 5 mg oral tablet)?1?tab(s)?5?Milligram?By Mouth?Daily torsemide (torsemide 20 mg oral tablet)?1?tab(s)?20?Milligram?By Mouth?Daily ? Inpatient Medications Medications (18) Active SCHEDULED: (10) Duloxetine 30 mg Capsule (DULoxetine Capsule) ??30 mg, By Mouth, Daily hydrALAZINE 20 mg/mL Inj (hydrALAZINE Inj) ??5 mg 0.25 mL, IV Push Slowly, 3 times a day Metoprolol 100 mg XL Tablet (metoprolol 100 mg oral tablet, extended release) ??200 mg, By Mouth, Daily NaCl 0.9% Flush 3ml (NaCL 0.9% Flush) ??3 mL, IV Push, Every 8 hours NaCl 0.9% Flush 3ml (NaCL 0.9% Flush) ??3 mL, IV Push, Every 8 hours NIFEdipine 60 mg ER Tablet (NIFEdipine 60 mg oral tablet, extended release) ??60 mg, By Mouth, Daily Oseltamivir 75 mg Capsule (Tamiflu Capsule) ??75 mg, By Mouth, Daily Pantoprazole 20 mg EC Tablet (pantoprazole 20 mg oral delayed release tablet) ??20 mg, By Mouth, Daily Rosuvastatin 5 mg Tablet (Crestor 5 mg oral tablet) ??5 mg, By Mouth, Daily Torsemide 20 mg tablet (torsemide 20 mg oral tablet) ??20 mg 1 tablet, By Mouth, Daily CONTINUOUS: (0) PRN: (8) Acetaminophen 325 mg Tablet (Acetaminophen Tablet) ??650 mg, By Mouth, Every 4 hours Albuterol 90mcg/Inhalation Inhaler HFA (albuterol CFC free 90 mcg/inh inhalation aerosol) ??2 inhalation, Inhalation, Every 6 hours Dextromethorphan-Guaifenesin 20 mg-200 mg/10 mL Liqu UD (Robitussin DM Liquid) ??10 mL, By Mouth, Every 4 hours HYDROmorphone 1 mg/mL Inj Syringe (Dilaudid Inj) ??1 mg 1 mL, IV Push Slowly, Every 6 hours Melatonin 3 mg Tablet (Melatonin Tablet) ??3 mg, By Mouth, Daily at bedtime NaCl 0.9% Flush 3ml (NaCL 0.9% Flush) ??3 mL, IV Push, Every 8 hours Senna 8.6 mg / Docusate 50 mg tablet (docusate-senna 50 mg-8.6 mg oral capsule) ??1 tablet, By Mouth, 2 times a day Simethicone 80 mg Chewable Tablet (Simethicone Tablet) ??80 mg, Chew, 3 times a day ? Results Recent Labs BLOOD COUNT & DIFF WBC 3.9 k/mm3 (Low)?? 02/13/2022 00:21 RBC 3.81 m/mm3 (Low)?? 02/13/2022 00:21 Hgb 10.4 Gm/dL (Low)?? 02/13/2022 00:21 Hct 31.9 % (Low)?? 02/13/2022 00:21 MCV 83.7 femtoliters ()?? 02/13/2022 00:21 MCH 27.3 pg ()?? 02/13/2022 00:21 MCHC 32.6 g/dL (Low)?? 02/13/2022 00:21 Platelet Count 192 k/mm3 ()?? 02/13/2022 00:21 RDW-SD 40.8 femtoliters ()?? 02/13/2022 00:21 MPV 12.1 femtoliters ()?? 02/13/2022 00:21 Nucleated RBC (Automated) 0.0 #/100 WBC'S ()?? 02/13/2022 00:21 Abs. NRBC 0.0 k/mm3 ()?? 02/13/2022 00:21 Abs. Neut 2.7 k/mm3 ()?? 02/13/2022 00:21 Abs. Lymph 0.8 k/mm3 ()?? 02/13/2022 00:21 Abs. Lipscomb 0.3 k/mm3 (Low)?? 02/13/2022 00:21 Abs. Eo 0.1 k/mm3 ()?? 02/13/2022 00:21 Abs. Baso 0.0 k/mm3 ()?? 02/13/2022 00:21 Neut % 68.7 % ()?? 02/13/2022 00:21 Lymph % 21.4 % ()?? 02/13/2022 00:21 Lipscomb % 6.6 % ()?? 02/13/2022 00:21 Eos % 2.5 % ()?? 02/13/2022 00:21 Baso % 0.5 % ()?? 02/13/2022 00:21 Imm Gran 0.3 % ()?? 02/13/2022 00:21 Abs. Imm Gran 0.0 k/mm3 ()?? 02/13/2022 00:21 ?? CHEM GENERAL Sodium 140 mmol/L ()?? 02/13/2022 00:21 Potassium 4.6 mmol/L ()?? 02/13/2022 00:21 Chloride 107 mmol/L ()?? 02/13/2022 00:21 Bicarbonate Level 24 mmol/L ()?? 02/13/2022 00:21 Anion Gap 9 ()?? 02/13/2022 00:21 Glucose Level 112 mg/dL (High)?? 02/13/2022 00:21 BUN 27 mg/dL (High)?? 02/13/2022 00:21 Creatinine-Blood 2.5 mg/dL (High)?? 02/13/2022 00:21 Estimated GFR Creatinine 26 ML/MIN/1.73 M2 ()?? 02/13/2022 00:21 Calcium 7.9 mg/dL (Low)?? 02/13/2022 00:21 Protein, Total 5.8 Gm/dL (Low)?? 02/13/2022 00:21 Albumin 3.1 Gm/dL (Low)?? 02/13/2022 00:21 AG Ratio 1.1 ()?? 02/13/2022 00:21 Alkaline Phosphatase 81 units/L ()?? 02/13/2022 00:21 Lipase 38 units/L ()?? 02/13/2022 00:21 AST (SGOT) 22 units/L ()?? 02/13/2022 00:21 ALT (SGPT) 14 units/L ()?? 02/13/2022 00:21 Bilirubin, Total 0.3 mg/dL ()?? 02/13/2022 00:21 Lactate 0.7 mmol/L ()?? 02/13/2022 00:21 ?? ENDOCRINE/TUMOR MARKER Serum Qual NEGATIVE mIU/mL ()?? 02/13/2022 00:21 ?? HEME OTHER Sed Rate >130 mm/hr (High)?? 02/13/2022 00:21 Hold Blue Top SPECIMEN DISCARDED AFTER 4 HOURS. ()?? 02/13/2022 00:21 ?? UA/URINALYSIS Appear/Color, Urine LIGHT YELLOW ()?? 02/13/2022 09:47 Specific Basin, Urine 1.012 ()?? 02/13/2022 09:47 pH, Urine 7.0 ()?? 02/13/2022 09:47 Albumin, Urine 3+ (Abnormal)?? 02/13/2022 09:47 Glucose, Urine 2+ (Abnormal)?? 02/13/2022 09:47 Ketones, Urine NEGATIVE ()?? 02/13/2022 09:47 Bilirubin, Urine NEGATIVE ()?? 02/13/2022 09:47 Hemoglobin, Urine TRACE (Abnormal)?? 02/13/2022 09:47 Nitrite, Urine NEGATIVE ()?? 02/13/2022 09:47 Leukocyte, Urine NEGATIVE ()?? 02/13/2022 09:47 Urobilinogen NORMAL mg/dL ()?? 02/13/2022 09:47 WBC's, Urine 9 /HPF (High)?? 02/13/2022 09:47 RBC's, Urine 2 /HPF ()?? 02/13/2022 09:47 Bacteria SLIGHT HPF (Abnormal)?? 02/13/2022 09:47 Squamous Epith 5 /HPF ()?? 02/13/2022 09:47 Mucus SLIGHT /LPF ()?? 02/13/2022 09:47 Hold Urine Culture Testing available 48 hours from time of collection. ()?? 02/13/2022 09:47 ?? VIROLOGY Influenza A PCR POSITIVE (Abnormal)?? 02/13/2022 00:44 Influenza B PCR NEGATIVE ()?? 02/13/2022 00:44 RSV PCR NEGATIVE ()?? 02/13/2022 00:44 COVID-19 PCR Specimen Source NASAL ()?? 02/13/2022 00:44 COVID-19 PCR Result NEGATIVE ()?? 02/13/2022 00:44 COVID-19 POC Result NEGATIVE ()?? 02/12/2022 23:52 ? EKG study Event Display: ECG 12-Lead Authored Date: Please click on pdf link to open report Event Display: ECG 12-Lead Authored Date: Ventricular Rate: 107 BPM Atrial Rate: 107 BPM P-R Interval: 134 ms QRS Duration: 136 ms Q-T Interval: 384 ms QTC Calculation(Bazett): 512 ms P [place]: 61 degrees R [place]: -13 degrees T [place]: 70 degrees Sinus tachycardia Possible Left atrial enlargement Right bundle branch block Abnormal ECG When compared with ECG of 28-JAN-2022 12:01, Nonspecific T wave abnormality, improved in Lateral leads Confirmed by MAU LORENZO ([id number]) on 02/13/2022 8:49:35 AM [place]: MAU LORENZO [facility] Progress note Konrad CARLSON, Nirmala: PERFORM, MODIFY Event Display: Progress Note [facility] Authored Date: [id number] Patient: ??ROWAN TAYLOR ? Age:??31 Years?Sex:??Female?:??1990?? Subjective Pt seen in ed, complains of nausea, and poor appetite, states that she has not eaten anything as shehas no desire. and feels very nauseous. on RA, on flu precautions Review of Systems -ve except as stated above Objective Vital Signs?? Temperature: 97.7 DegF (02/14/22 11:32:00) Temperature Route: Oral (02/14/22 11:32:00) Pulse Rate:??103 bpm??High (02/14/22 11:29:00) Respiratory Rate: 18 br/min (02/14/22 11:29:00) Systolic Blood Pressure:??164 mm Hg??High (02/14/22:29:00) Diastolic Blood Pressure:??92 mm Hg??High (02/14/22:29:00) Blood pressure sites: Arm, left (02/14/22:29:00) Mean Arterial Pressure: 115 mm Hg (02/14/22 08:59:00) Pulse Pressure: 72 mm Hg (02/14/22 11:29:00) Oxygen Saturation: 100 % (02/14/22 11:29:00) Mode of Delivery (Oxygen): Room air (02/14/22:29:00) Early Warning Score: 6 (02/14/22 11:33:04) ? Physical Exam General: Patient is??legally blind Mental Status: Oriented to person, place and time. Respiratory: Clear to auscultation and percussion. No wheezing, rales or rhonchi. Cardiovascular: Heart sounds normal. No thrills. Regular rate and rhythm, no murmurs, rubs or gallops. Gastrointestinal: Abdomen soft, non-tender, non-distended. Normal bowel sounds.?? Neurologic:??No focal neurological deficits. Sensation intact bilaterally. Skin: No rashes or lesions.?? Musculoskeletal: No cyanosis _ Inpatient Medications Medications (17) Active SCHEDULED: (10) Carvedilol 25 mg Tablet (carvedilol 25 mg oral tablet) ??25 mg, By Mouth, 2 times a day Duloxetine 30 mg Capsule (DULoxetine Capsule) ??30 mg, By Mouth, Daily hydrALAZINE 20 mg/mL Inj (hydrALAZINE Inj) ??5 mg 0.25 mL, IV Push Slowly, 3 times a day NaCl 0.9% Flush 3ml (NaCL 0.9% Flush) ??3 mL, IV Push, Every 8 hours NaCl 0.9% Flush 3ml (NaCL 0.9% Flush) ??3 mL, IV Push, Every 8 hours NIFEdipine 60 mg ER Tablet (NIFEdipine 60 mg oral tablet, extended release) ??60 mg, By Mouth, Daily Oseltamivir 75 mg Capsule (Tamiflu Capsule) ??75 mg, By Mouth, Daily Pantoprazole 20 mg EC Tablet (pantoprazole 20 mg oral delayed release tablet) ??20 mg, By Mouth, Daily Rosuvastatin 5 mg Tablet (Crestor 5 mg oral tablet) ??5 mg, By Mouth, Daily Torsemide 20 mg tablet (torsemide 20 mg oral tablet) ??20 mg 1 tablet, By Mouth, Daily CONTINUOUS: (0) PRN: (7) Acetaminophen 325 mg Tablet (Acetaminophen Tablet) ??650 mg, By Mouth, Every 4 hours Albuterol 90mcg/Inhalation Inhaler HFA (albuterol CFC free 90 mcg/inh inhalation aerosol) ??2 inhalation, Inhalation, Every 6 hours Dextromethorphan-Guaifenesin 20 mg-200 mg/10 mL Liqu UD (Robitussin DM Liquid) ??10 mL, By Mouth, Every 4 hours Melatonin 3 mg Tablet (Melatonin Tablet) ??3 mg, By Mouth, Daily at bedtime NaCl 0.9% Flush 3ml (NaCL 0.9% Flush) ??3 mL, IV Push, Every 8 hours Senna 8.6 mg / Docusate 50 mg tablet (docusate-senna 50 mg-8.6 mg oral capsule) ??1 tablet, By Mouth, 2 times a day Simethicone 80 mg Chewable Tablet (Simethicone Tablet) ??80 mg, Chew, 3 times a day ? Results Recent Labs BLOOD COUNT & DIFF WBC 3.9 k/mm3 (Low)?? 02/13/2022 00:21 RBC 3.81 m/mm3 (Low)?? 02/13/2022 00:21 Hgb 10.4 Gm/dL (Low)?? 02/13/2022 00:21 Hct 31.9 % (Low)?? 02/13/2022 00:21 MCV 83.7 femtoliters ()?? 02/13/2022 00:21 MCH 27.3 pg ()?? 02/13/2022 00:21 MCHC 32.6 g/dL (Low)?? 02/13/2022 00:21 Platelet Count 192 k/mm3 ()?? 02/13/2022 00:21 RDW-SD 40.8 femtoliters ()?? 02/13/2022 00:21 MPV 12.1 femtoliters ()?? 02/13/2022 00:21 Nucleated RBC (Automated) 0.0 #/100 WBC'S ()?? 02/13/2022 00:21 Abs. NRBC 0.0 k/mm3 ()?? 02/13/2022 00:21 Abs. Neut 2.7 k/mm3 ()?? 02/13/2022 00:21 Abs. Lymph 0.8 k/mm3 ()?? 02/13/2022 00:21 Abs. Lipscomb 0.3 k/mm3 (Low)?? 02/13/2022 00:21 Abs. Eo 0.1 k/mm3 ()?? 02/13/2022 00:21 Abs. Baso 0.0 k/mm3 ()?? 02/13/2022 00:21 Neut % 68.7 % ()?? 02/13/2022 00:21 Lymph % 21.4 % ()?? 02/13/2022 00:21 Lipscomb % 6.6 % ()?? 02/13/2022 00:21 Eos % 2.5 % ()?? 02/13/2022 00:21 Baso % 0.5 % ()?? 02/13/2022 00:21 Imm Gran 0.3 % ()?? 02/13/2022 00:21 Abs. Imm Gran 0.0 k/mm3 ()?? 02/13/2022 00:21 ?? CARDIAC Nt-Probnp 95183 pg/mL (High)?? 02/13/2022 00:21 ?? CHEM GENERAL Sodium 140 mmol/L ()?? 02/13/2022 00:21 Potassium 4.6 mmol/L ()?? 02/13/2022 00:21 Chloride 107 mmol/L ()?? 02/13/2022 00:21 Bicarbonate Level 24 mmol/L ()?? 02/13/2022 00:21 Anion Gap 9 ()?? 02/13/2022 00:21 Glucose Level 112 mg/dL (High)?? 02/13/2022 00:21 Glucose, POC 103 mg/dL (High)?? 02/13/2022 15:23 BUN 27 mg/dL (High)?? 02/13/2022 00:21 Creatinine-Blood 2.5 mg/dL (High)?? 02/13/2022 00:21 Estimated GFR Creatinine 26 ML/MIN/1.73 M2 ()?? 02/13/2022 00:21 Calcium 7.9 mg/dL (Low)?? 02/13/2022 00:21 Protein, Total 5.8 Gm/dL (Low)?? 02/13/2022 00:21 Albumin 3.1 Gm/dL (Low)?? 02/13/2022 00:21 AG Ratio 1.1 ()?? 02/13/2022 00:21 Alkaline Phosphatase 81 units/L ()?? 02/13/2022 00:21 Lipase 38 units/L ()?? 02/13/2022 00:21 AST (SGOT) 22 units/L ()?? 02/13/2022 00:21 ALT (SGPT) 14 units/L ()?? 02/13/2022 00:21 Bilirubin, Total 0.3 mg/dL ()?? 02/13/2022 00:21 Lactate 0.7 mmol/L ()?? 02/13/2022 00:21 C-Reactive Protein 0.4 mg/dL ()?? 02/13/2022 00:21 ?? ENDOCRINE/TUMOR MARKER Serum Qual NEGATIVE mIU/mL ()?? 02/13/2022 00:21 ?? HEME OTHER Sed Rate >130 mm/hr (High)?? 02/13/2022 00:21 Hold Blue Top SPECIMEN DISCARDED AFTER 4 HOURS. ()?? 02/13/2022 00:21 ?? UA/URINALYSIS Appear/Color, Urine LIGHT YELLOW ()?? 02/13/2022 09:47 Specific [place], Urine 1.012 ()?? 02/13/2022 09:47 pH, Urine 7.0 ()?? 02/13/2022 09:47 Albumin, Urine 3+ (Abnormal)?? 02/13/2022 09:47 Glucose, Urine 2+ (Abnormal)?? 02/13/2022 09:47 Ketones, Urine NEGATIVE ()?? 02/13/2022 09:47 Bilirubin, Urine NEGATIVE ()?? 02/13/2022 09:47 Hemoglobin, Urine TRACE (Abnormal)?? 02/13/2022 09:47 Nitrite, Urine NEGATIVE ()?? 02/13/2022 09:47 Leukocyte, Urine NEGATIVE ()?? 02/13/2022 09:47 Urobilinogen NORMAL mg/dL ()?? 02/13/2022 09:47 WBC's, Urine 9 /HPF (High)?? 02/13/2022 09:47 RBC's, Urine 2 /HPF ()?? 02/13/2022 09:47 Bacteria SLIGHT HPF (Abnormal)?? 02/13/2022 09:47 Squamous Epith 5 /HPF ()?? 02/13/2022 09:47 Mucus SLIGHT /LPF ()?? 02/13/2022 09:47 Hold Urine Culture Testing available 48 hours from time of collection. ()?? 02/13/2022 09:47 ?? VIROLOGY Influenza A PCR POSITIVE (Abnormal)?? 02/13/2022 00:44 Influenza B PCR NEGATIVE ()?? 02/13/2022 00:44 RSV PCR NEGATIVE ()?? 02/13/2022 00:44 COVID-19 PCR Specimen Source NASAL ()?? 02/13/2022 00:44 COVID-19 PCR Result NEGATIVE ()?? 02/13/2022 00:44 ? Assessment/Plan 31-year-old female with past medical history of CKD 3/4, diabetic kidney disease, nonischemic cardiomyopathy with an ejection fraction 40-45%, legally blind eye, recent history of preeclampsia resulting in demise requiring C- section on 12/09/2021. She now presents to [facility] ER with nausea, vomitings, abdominal pain??for the past 3 to 4 days. She complained of cough and nasal congestion, shortness of breath. She feels like her chest is congested. Creatinine level 2.5 down from 3.7; patient is afebrile. Blood pressures are elevated in the 180s. Influenza A is positive. The patient isbeing admitted to [facility] for further evaluation and treatment. ? 1.?Influenza A: Patient has been??cough,??nasal congestion??for the past??1 to 2 days Influenza A??is positive Tamiflu??course Droplet precautions Patient is saturating well:??99% on room air ? 2.?Nonischemic cardiomyopathy: Chronic systolic CHF: EF??40 to 45% euvolemic. ? 3.?Hypertensive??urgency: resolved Blood pressure is??high??183/105??mmHg carvedilol and nifedipine 60 mg daily will dc torsemide, given poor PO intake. will give small IV bolus. I have added as needed IV hydralazine??to titrate the blood pressure ? 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 5.?Nausea/vomiting: Improving now QTc interval is??increased??512 We will hold??metoclopramide??Zofran??for now??in view of prolonged QTc interval Ordered prochlorperazine ? 6.?Diabetes mellitus: POCs??are reasonable Patient??apparently is not taking insulin We will monitor POCs??and if??that increased??then may??start gentle??sliding scale insulin ?? 7.?DVT prophylaxis:??We will avoid heparin products??in view of??small retroperitoneal hematoma Will??hold heparin products??and anticoagulants??for now. I have ordered??pneumatic compression boots??for DVT prophylaxis Diet:??Cardiac/diabetic diet??with fluid restriction ?? OMN: nausea vomiting ?? Nirmala Silvestre MD: PERFORM Event Display: Progress Note Hospital Authored Date: Pt left AMA later during the day. discharge diagnosis Influenza A nausea vomiting legally blind diabetes hypertensive urgency non ischemic cardiomyopathy Nirmala Silvestre MD: PERFORM Event Display: Progress Note Hospital Authored Date: Pt did not sign AMA form upon leaving. total time on discharge?? 33 min US Appendix [facility]SPowerscribe , CIS S: TRANSCRIAkil Kong MD: VERIFY Danny Álvarez MD: SIGN Event Display: Result: Authored Date: US Appendix Hx of Present Illness: Pt resting in wheelchair. Pt reports abd pain x 2 days. Main pain in RLQ. Pt reports not being able to hold anything down due to emesis. Pt reports lack of urine also.; Reason: Other:; Abdominal Pain; Clinical Question(s): Appendicitis COMPARISON: CT 01/26/2022, US appendix 07/20/2021. IMAGING TECHNIQUE: High-resolution graded compression sonography was performed using a linear array transducer at the expected locations of the appendix and at the patient's maximal point of tenderness. FINDINGS: Appendix: The appendix is not visualized. Right lower quadrant bowel loops are normal in caliber. Nofocal bowel wall thickening or inflammatory change at the site of maximal tenderness. Fluid: None. Abscess: No abscess or organized fluid collection. Lymph nodes: No regional lymphadenopathy. Additional findings: Unremarkable right ovary. IMPRESSION: Appendix not visualized. No secondary findings to suggest appendicitis. Normal right ovary. I have personally reviewed the images and I agree with this report. WSN: [id number] Ordering Physician: Jody Carlos Dictated By: Danny Álvarez MD Dictated Date/Time: 02/13/22 7:27 am Reviewed By: Akil Stern MD Signed By: Akil Stern MD Signed Date/Time: 02/13/22 7:32 am Transcribed By: ALEXIS Transcribed Date/Time: 02/13/22 2:[address] Abdomen and Pelvis WO contrast [facility]erscribe , CIS S: TRANSCRIBE Mihai Germain MD S: VERIFY Danny Álvarez MD: SIGN Event Display: Result: Authored Date: [id number] CT Abdomen and Pelvis W/O Contrast HX OF PRESENT ILLNESS: Pt resting in wheelchair. Pt reports abd pain x 2 days. Main pain in RLQ. Pt reports not being able to hold anything down due to emesis. Pt reports lack of urine also.; Reason: RLQ abdominal pain; Clinical Question(s): Obstruction TECHNIQUE: Spiral CT through the abdomen and pelvis without IV contrast formatted in 3 planes. This study was performed without oral contrast. Weight- based protocol using automatic tube modulation was used to optimize exposure parameters. CTDIvol Body: 15.30 mGy, DLP Body: 887 mGy*cm. COMPARISON: CT 01/26/2022 FINDINGS: Sequins Spooler View Findings, Lines and Tubes: None. Visualized Chest: Mild septal thickening, likely due to interstitial edema at the lung bases. No consolidations. Small bilateral pleural effusions have mildly improved. The heart is normal in size. Unchanged small pericardial effusion. There is decreased attenuation of the intracardiac blood relative to the myocardium, consistent with anemia. Diaphragm: Normal. Liver: Normal. Gallbladder: Absent consistent with prior cholecystectomy. Bile ducts: No biliary ductal dilation. Spleen: Normal. Pancreas: Normal. Adrenal glands: Normal. Kidneys and ureters: No hydronephrosis or noncontrast evidence of suspicious masses. Hyperdensity measuring up to 2.1 cm in the posterior perinephric space likely represents a small postbiopsy hematoma(axial 61). Punctate nonobstructing left upper pole renal calculus. Bladder: Normal. Reproductive organs: Unremarkable. Stomach, small bowel, and large bowel: Normal. Appendix: Normal. Peritoneum and retroperitoneum: No ascites or pneumoperitoneum. No omental or mesenteric lesions. Lymph nodes: Mildly enlarged para-aortic lymph nodes measuring up to 1.1 cm short axis and bilateralexternal iliac lymph nodes measuring up to 1.1 cm short axis, similar to prior. Blood vessels: Normal. No aneurysm. Abdominal and pelvic wall: scar. Bones: No acute abnormality. Disc space narrowing and endplate degenerative changes at L4-L5. IMPRESSION: 1. No evidence of bowel obstruction as questioned. 2. 2.1 cm right retroperitoneal hematoma in the posterior perinephric space, likely related to recent renal biopsy. 3. Unchanged abdominopelvic adenopathy. 4. Mild interstitial edema at the lung bases. 5. Improved small bilateral pleural effusions. 6. Unchanged small pericardial effusion. I have personally reviewed the images and I agree with this report. WSN: [id number] Ordering Physician: Jody Carlos Dictated By: Danny Álvarez MD Dictated Date/Time: 02/13/22 7:40 am Reviewed By: Mihai Germain MD Signed By: Mihai Germain MD Signed Date/Time: 02/13/22 7:45 am Transcribed By: ALEXIS Transcribed Date/Time: 02/13/22 3:10 am Portable XR Chest Views BHSPowerscriadina , CIS S: TRANSCRICharlotte Giraldo MD: VERIFY Event Display: Result: Authored Date: [id number] Chest Portable Hx of Present Illness: Pt resting in wheelchair. Pt reports abd pain x 2 days. Main pain in RLQ. Pt reports not being able to hold anything down due to emesis. Pt reports lack of urine also.; Reason: CHF; Clinical Question(s): CHF COMPARISON: 01/23/2022. FINDINGS: LINES AND TUBES: None. LUNGS AND PLEURA: Clear lungs. Normal pulmonary vascularity. Small pleural effusions. No pneumothorax. HEART, MEDIASTINUM AND EVERT: Unchanged. BONES AND SOFT TISSUES: No acute abnormality. IMPRESSION: Persistent small bilateral pleural effusions. WSN: [id number] Ordering Physician: Jody Carlos Dictated By: Charlotte Rhoades MD Dictated Date/Time: 02/13/22 8:01 am Reviewed By: Charlotte Rhoades MD Signed By: Charlotte Rhoades MD Signed Date/Time: 02/13/22 8:01 am Transcribed By: ALEXIS Transcribed Date/Time: 02/13/22 7:59 am Patient Care team information Care Team PersonnelName: Anuradha Morris RN Position: S RN Member Role: Primary Care Nurse Name: Samantha Reynolds RN Position: S RN Member Role: Primary Care Nurse Name: Omega Gillespie RN Position: S RN Member Role: Primary Care Nurse Name: Paty Kelly RN Position: S RN Member Role: Primary Care Nurse Name: Sonia Malone Position: [facility] RN Member Role: Primary Care Nurse Name: Keira Desai RN Position: [facility] RN Member Role: Primary Care Nurse Name: Gomez Moseley RN Position: [facility] RN Supv Member Role: Primary Care Nurse Name: Vashti Bruce RN Position: [facility] RN Member Role: Primary Care Nurse Name: Raghav Granger Position: [facility] RN Member Role: Primary Care Nurse Name: Cassy Caraballo RN Position: [facility] RN Member Role: Primary Care Nurse Name: Lisa Vines RN Position: [facility] RN Member Role: Primary Care Nurse Name: Larissa Barnett RN Position: [facility] RN Member Role: Primary Care Nurse Name: Inna Beckwith RN Position: [facility] RN Member Role: Primary Care Nurse Name: Cady Araya RN Position: [facility] RN Member Role: Primary Care Nurse Name: Abdon Beard MD Position: [facility] Outreach Member Role: PCP Address: Address: [address] [place] [address]- Name: Michele Blancas DO Position: [facility] Renal MD Member Role: Lifetime Consulting Physician Address: Address: [address] [place] [address] [address] [facility] [place] [address]- Name: María Acosta RN Position: [facility] RN Member Role: Primary Care Nurse Name: Treasure Gilbert RN Position: [facility] RN Supv Member Role: Primary Care Nurse Name: Farzana Sevilla Position: [facility] RN Member Role: Primary Care Nurse Name: Libertad Sim RN Position: [facility] RN Member Role: Primary Care Nurse Name: Javan Pimentel MD Position: [facility] Renal MD Member Role: Lifetime Consulting Physician Address: Address: [address] [place] [address] [address] [facility], [place] [address]- [place] Name: Heather Pal RN Position: [facility] RN Member Role: Primary Care Nurse Name: Jody Rasmussen RN Position: [facility] RN Member Role: Primary Care Nurse Name: Mau Hazel RN Position: [facility] RN Member Role: Primary Care Nurse Name: Pedro Taylor RN Position: [facility] RN Member Role: Primary Care Nurse Name: Charlotte Singletary RN Position: [facility] OB RN Member Role: Primary Care Nurse Name: Alison Jose RN Position: [facility] RN Member Role: Primary Care Nurse Name: Kendall Coleman RN Position: [facility] RN Member Role: Primary Care Nurse Name: Nancy Fair RN Position: [facility] SN RN Member Role: Primary Care Nurse Name: Sofie Reed Position: [facility] RN Member Role: Primary Care Nurse Name: Fernando Siddiqi MD Position: [facility] Renal MD Member Role: Lifetime Consulting Physician Address: Address: [address] [place] [address] [facility] [address] Name: Lianne Byrnes RN Position: [facility] RN Member Role: Primary Care Nurse Name: Tona Jacome LPN Position: [facility] RN Member Role: Primary Care Nurse Name: Tatiana Madrigal RN Position: [facility] RN Member Role: Primary Care Nurse Name: Jose Callejas RN Position: [facility] RN Member Role: Primary Care Nurse Name: Vy RAMIREZ Attending Position: [facility] ED Medicine MD Name: Betty Loaiza RN Position: [facility] ED RN W/OE and Tasks Member Role: Patient Care Provider Name: Max Soni Position: [facility] ED TA [facility] Member Role: Airport Attendant Care Team Related PersonsName: LEONOR MCFARLAND Address: home [address] [place] [address] Name: REJI TAYLOR Address: home [address] [place] [address] Name: JEFF CHAPMAN Address: [address] Address: home [address] [address] [place] Name: ELI BONILLA Address: home [address] [place] [id number]
--- OUTSIDE RECORDS SUMMARY | 2022-03-31 18:24 | XMS_ITS | Continuity of Care Document ---
:1990 Author Organization [facility] [employer] [facility] p Address [address] [place] [address], [address] [place] [id number]- Care Team Providers Name Role Phone Abdon Beard MD Primary Care Physician Encounter [facility] Date(s): 08/01/21 - 08/31/21 [facility] [employer] [facility] [address] [place] [address], [address] [place] [id number] Allergies, Adverse Reactions, Alerts Substance Reaction Severity [...] '943Admin Note: TD4 Admin Note: unknown exact [id number] Note: unknown exact date Medications acetaminophen 325 [...] Pharmacy Electronically, [facility]/pharmacy #[id number], Partial fill upon patient request ifthe prescription [...] 11:44:00EDT, Capsule, [facility]/pharmacy #[id number], Partial fill upon patient request if the [...] Dry Weight Start Date: 08/24/21 Status: OrderedPen Witten, 30 G x 8 mm BD Ultra [...] Chew Tablet, [facility]/pharmacy #[id number], [...] 0 Refills, Maintenance, 08/24/21 11:43:00 EDT, Inhaler, [facility]/pharmacy #[id number], Partial [...] Acute 09/22/21 0:00:00 EDT, 08/23/21 13:06:00 EDT, [facility]/pharmacy #[id number], Partial [...] Obese class I(Confirmed) Active Care Coordination [facility], [place] Active Jeanne, CC (Confirmed) Pre-existing diabetes mellitus Active affecting , antepartum(Confirmed) Poor vision(Confirmed)6 Active 1Managed by PCP. WEll controlled.2Self-manages. States currently stable. No medications.3Not seem at [facility] since 08/12/2016. Multiple no show in our center. She is seen by other provider Dr Matt Gutierrez by pharmacy records.4Managed by [id number] by PCP with [id number], states sees shadows and has blurry vision. Last eye doctor appointment was several years ago. Social History Social History Type Response Smoking Status Never (less than 100 in life time) entered on: 08/22/21 Sex
--- OUTSIDE RECORDS SUMMARY | 2022-03-31 18:24 | XMS_ITS | Continuity of Care Document ---
:1990 Author Organization [facility] Address [address] [place] [phone]- Care Team Providers Name Role Phone Chirag CARLSON, Abdon Primary Care Physician [facility]counter [facility] Date(s): 09/29/21 - 11/19/21 [facility] [address] [place] [id number] Attending Physician: Fer Moy MD Admitting Physician: Fer Moy MD Referring Physician: Fer Moy MD Allergies, Adverse Reactions, Alerts Substance Reaction [...] '943Admin Note: TD4 Admin Note: unknown exact [id number] Note: unknown exact date Medications Alcohol Pads [...] 08/24/21 11:43:00 EDT, Route to Pharmacy Electronically, [facility]/pharmacy #[id number], Partial fill upon patient request ifthe prescription is for a schedule II opioid drug... Start Date: 08/24/21 Status: Orderedaspirin 81 mg oral delayed release tablet 2 tablet = 162 mg, By Mouth, Daily, # 90 tablet, 3 Refills, Maintenance, 10/05/21 12:28:00 EDT, CR Tablet, [facility]/pharmacy #[id number], Partial fill upon patient [...] 0 Refills, Maintenance, 08/24/21 11:26:00 EDT, Injection, [facility]/pharmacy #[id number], Partial fill upon patient request if the prescription is fora schedule II opioid drug., 168, cm, 08/24/21 10:... Start Date: 08/24/21 Stop Date: 09/23/21 Status: Orderednitrofurantoin macrocrystals 100 mg oral capsule See Instructions, 1 capsule By Mouth twice daily x 7 days, # 14 each, 0 Refills, Acute 11/26/21 15:27:00 EDT, 10/28/21 15:26:00 EDT, [facility]/pharmacy #[id number], Partial fill upon patient [...] Dry Weight Start Date: 08/24/21 Status: OrderedPen [place], 30 G x 8 mm BD Ultra [...] Refills, Maintenance, 08/24/21 11:27:00 EDT, Chew Tablet, [facility]/pharmacy #[id number], Partial fill upon patient request if the prescription is for a schedule II opioid drug., 1 tablet Chew Daily, 168, cm, 08/24/21 10:36:0... Start Date: 08/24/21 Status: OrderedProAir HFA 90 mcg/inh inhalation aerosol See Instructions, PRN Wheezing/Shortness of Breath, Inhale 2 puff every 4 to 6 hours as needed, # 18Gm, 0 Refills, Maintenance, 08/24/21 11:43:00 EDT, Inhaler, [facility]/pharmacy #[id number], Partial fill upon patient [...] 11/17/21 16:18:00 EDT, Route to Pharmacy Electronically, [facility]/pharmacy #[id number], Partial fill upon patient request ifthe prescription is for a schedule II opioid drug... Start Date: 11/17/21 Status: Ordered Problem List Condition Effective Dates [...] Active Obese class I(Confirmed) Active Care Coordination [facility], Hakan Active Angel, CC (Confirmed) Pre-existing diabetes mellitus Active affecting , antepartum(Confirmed) Poor vision(Confirmed)6 Active 1Managed by PCP. WEll controlled.2Self-manages. States currently stable. No medications.3Not seem at [facility] since 08/12/2016. Multiple no show in our center. She is seen by other provider Dr Matt Gutierrez by pharmacy records.4Managed by [id number] by PCP with [id number], states sees shadows and has blurry vision. Last eye doctor appointment was several years ago. Social History Social History Type Response Smoking Status Never (less than 100 in life time) entered on: 08/22/21 Sex Care Team PersonnelName: Chirag CARLSON, Abdon Address: [address] [place] [address]
--- OUTSIDE RECORDS SUMMARY | 2022-03-31 18:24 | XMS_ITS | Continuity of Care Document ---
:1990 Author Organization [facility] ic Address [address] [place] [phone]- Care Team Providers Name Role Phone Abdon Beard MD Primary Care Physician Encounter [facility] Date(s): 08/01/21 - 08/31/[address] [address]- Allergies, Adverse Reactions, Alerts Substance Reaction Severity [...] '943Admin Note: TD4 Admin Note: unknown exact [id number] Note: unknown exact date Medications acetaminophen 325 [...] 08/24/21 11:43:00 EDT, Route to Pharmacy Electronically, [facility]/pharmacy #[id number], Partial fill upon patient request ifthe prescription [...] capsule, 3 Refills, Maintenance, 08/24/21 11:44:00EDT, Capsule, [facility]/pharmacy #[id number], Partial fill upon patient request if the [...] 08/24/21 11:44:00 EDT, Route to Pharmacy Electronically, [facility]/pharmacy #[id number], Partial fill u... Start Date: 08/24/21 Status: OrderedLevemir FlexTouch 100 units/mL subcutaneous solution = 8 units, Subcutaneous Injection, Daily at bedtime, # 10 mL, 0 Refills, Maintenance, 08/24/21 11:26:00 EDT, Injection, [facility]/pharmacy #[id number], Partial fill upon patient request if the prescription is for a schedule II opioid drug., 168, cm, 08/24/21 10:3... Start Date: 08/24/21 Stop Date: 09/23/21 Status: OrderedMetoprolol Tartrate 25 mg oral tablet 1.5 tablet = 37.5 mg, By Mouth, 2 times a day, # 90 tablet, 3 Refills, Maintenance, 08/24/21 11:44:00 EDT, Tablet, [facility]/pharmacy #[id number], Partial fill [...] Dry Weight Start Date: 08/24/21 Status: OrderedPen [place], 30 G x 8 mm BD Ultra [...] Refills, Maintenance, 08/24/21 11:27:00 EDT, Chew Tablet, [facility]/pharmacy #[id number], Partial fill upon patient request if the prescription is for a schedule II opioid drug., 1 tablet Chew Daily, estefany Verdin, 08/24/21 10:36:0... Start Date: 08/24/21 Status: OrderedProAir HFA 90 mcg/inh inhalation aerosol See Instructions, PRN Wheezing/Shortness of Breath, Inhale 2 puff every 4 to 6 hours as needed, # 18Gm, 0 Refills, Maintenance, 08/24/21 11:43:00 EDT, Inhaler, [facility]/pharmacy #[id number], Partial fill [...] Acute 09/22/21 0:00:00 EDT, 08/23/21 13:06:00 EDT, [facility]/pharmacy #[id number], Partial fill [...] class I(Confirmed) Active Care Coordination [facility]-LISA, [place]akan Active Jeanne, CC (Confirmed) Pre-existing diabetes mellitus Active affecting , antepartum(Confirmed) Poor vision(Confirmed)6 Active 1Managed by PCP. WEll controlled.2Self-manages. States currently stable. No medications.3Not seem at [facility] since 08/12/2016. Multiple no show in our center. She is seen by other provider Dr Matt Gutierrez by pharmacy records.4Managed by [id number] by PCP with [id number], states sees shadows and has blurry vision. Last eye doctor appointment was several years ago. Social History Social History Type Response Smoking Status Never (less than 100 in life time) entered on: 08/22/21 Sex
--- OUTSIDE RECORDS SUMMARY | 2022-03-31 18:24 | XMS_ITS | Continuity of Care Document ---
:1990 Author Organization [facility] ic Address [address] [place] [phone]- Care Team Providers Name Role Phone Abdon Beard MD Primary Care Physician Encounter [facility] Date(s): 07/22/21 - 08/21/[address] [id number] Allergies, Adverse Reactions, Alerts [...] '943Admin Note: TD4 Admin Note: unknown exact [id number] Note: unknown exact date Medications acetaminophen 325 [...] 06/18/21 9:46:00 EDT, Route to Pharmacy Electronically, [facility], Partial fill upon patient request if the prescription is for a schedule II opioid... Start Date: 06/18/21 Status: Orderedatorvastatin 40 mg oral tablet 1 tablet = 40 mg, By Mouth, Daily at bedtime, Follow-up with your primary care doctor for further refills., # 30 tablet, 1 Refills, Maintenance, 06/18/21 9:46:00 EDT, Tablet, [facility], Partial fill upon patient request if the prescript... Start Date: 06/18/21 Status: Orderedduloxetine 30 mg oral enteric coated capsule 1 capsule = 30 mg, By Mouth, 2 times a day, # 60 capsule, 0 Refills, Maintenance, 06/18/21 9:46:00 EDT, Capsule, [facility], Partial fill upon [...] 3 Refills, Maintenance, 11/17/20 10:19:00 EDT, Tablet, [facility]/pharmacy #[id number], Partial fillupon patient request if the prescription is for a... Start Date: 11/17/20 Status: OrderedLasix 20 mg oral tablet 20 mg, 1, tablet, By Mouth, Every other day, Follow-up with your primary care doctor for further refills., # 30 tablet, Refills 0, Tot. Refills 0, Maintenance, 07/14/21 16:27:00 EDT, Route to Pharmacy Electronically, [facility]/pharmacy #[id number], Partial fill u... Start Date: 07/14/21 Status: OrderedLevemir FlexTouch 100 units/mL subcutaneous solution = 8 units, Subcutaneous Injection, Daily at bedtime, # 10 mL, 0 Refills, Maintenance, 06/19/21 9:20:00 EDT, Injection, [facility], Partial fill upon patient request if the prescription isfor a schedule II opioid drug., 167.6, cm, ... Start Date: 06/19/21 Stop Date: 07/19/21 Status: Orderedlidocaine 5% topical film 1 patch, Topically, Daily, PRN Pain , Mild, remove after 12 hours, # 13 each, 0 Refills, Maintenance, 04/19/21 11:26:00 EST, Film, [facility]/pharmacy #[id number], Partial fill upon patient request if the prescription is for a schedule II opioid drug., 1 patch Top... Start Date: 04/19/21 Status: Orderedlisinopril 5 mg oral tablet 5 mg, 1, tablet, By Mouth, Daily, # 30 tablet, Refills 0, Tot. Refills 0, Maintenance, 07/14/21 16:28:00 EDT, Route to Pharmacy Electronically, [facility]/pharmacy #[id number], Partial fill upon patient request if [...] 0 Refills, Maintenance, 03/31/21 14:26:00 EST, Tablet, [facility]/pharmacy #[id number], Partial fill... Start Date: 03/31/21 Status: OrderedoxyCODONE 5 mg oral tablet 5 mg, 1, tablet, By Mouth, Every 6 hours, PRN, Refills 0, Tot. Refills 0, Pain , Severe Start Date: 06/09/21 Status: OrderedPen [place], 30 G x 8 mm BD Ultra [...] Refills, Maintenance, 07/24/21 14:28:00 EDT, Chew Tablet, [facility]/pharmacy #[id number], Partial fill upon patient request if [...] 2(Confirmed)1 Active Hypertension(Confirmed) Active Care Coordination [facility], [place]akan Active Jeanne, CC (Confirmed) delivery(Confirmed) Active delivery(Confirmed) Active 1Not seem at [facility] since 08/12/2016. Multiple no show in our center. She is seen by other provider Dr Matt Gutierrez by pharmacy records. Social History Social History Type Response Smoking Status Never (less than 100 in life time) entered on: 04/23/21 Sex
--- OUTSIDE RECORDS SUMMARY | 2022-03-31 18:24 | XMS_ITS | Continuity of Care Document ---
:1990 Author Organization [facility] Address [address] [place] [address]- Care Team Providers Name Role Phone Chirag CARLSON, Abdon Primary Care Physician [place] [facility] [place]/23[place]21 - 12/29/21 [facility] [address] [place] [id number] Attending Physician: Cosme Willis MD Admitting Physician: Alba CARLSON, Cosme Referring Physician: Nupur Box NP Allergies, Adverse [...] '943Admin Note: TD4 Admin Note: unknown exact [id number] Note: unknown exact date Medications Alcohol Pads [...] 12/13/21 14:16:00 EDT, Route to Pharmacy Electronically, [facility]/pharmacy #[id number], Partial fill upon patient request if the prescriptio... Start Date: 12/13/21 Status: OrderedCoreg 25 mg oral tablet 50 mg, 2, tablet, By Mouth, 2 times a day, # 120 tablet, Refills 0, Tot. Refills 0, Maintenance, 12/13/21 14:16:00 EDT, Route to Pharmacy Electronically, [facility]/pharmacy #[id number], Partial fill upon patient request if the [...] 12/13/21 14:16:00 EDT, Route to Pharmacy Electronically, [facility]/pharmacy #[id number], Partial fill upon patient request if the prescription is for a schedule II op... Start Date: 12/13/21 Status: OrderedLevemir FlexTouch 100 units/mL subcutaneous solution See Instructions, INJECT 8 UNITS SUBCUTANEOUSLY AT BEDTIME FOR 30 DAYS, # 15 Unknown, 0 Refills, Maintenance, 12/19/21 16:07:00 EDT, [facility], 168, cm, 12/13/21 12:57:00 EDT, Height, 90, kg, 12/13/21 11:35:00 EDT, Dry Weight Start Date: 12/19/21 Status: OrderedNIFEdipine (Eqv-Procardia XL) 90 mg oral tablet, extended release 1 tablet = 90 mg, By Mouth, Daily, # 30 tablet, 0 Refills, Maintenance, 12/13/21 14:16:00 EDT, [facility]/pharmacy #[id number], [...] 12/13/21 14:17:00 EDT, Route to Pharmacy Electronically, [facility]/pharmacy #[id number], Partial fill upon elisa... Start Date: 12/13/21 Status: OrderedPeak Flow Meter (Adult) See Instructions, # 1 each, Maintenance, Use when wheezing or chest tightness. Call for peak flow less than 200., 08/24/21 15:17:00 EDT, Supply, 168, cm, 08/24/21 11:41:00 EDT, Height, 75.8, kg, 06/09/21 11:38:00 EDT, Dry Weight Start Date: 08/24/21 Status: OrderedPen [place], 30 G x 8 mm BD Ultra [...] 0 Refills, Maintenance, 08/24/21 11:43:00 EDT, Inhaler, [facility]/pharmacy #[id number], [...] 12/13/21 14:17:00 EDT, Route to Pharmacy Electronically, [facility]/pharmacy #[id number], Partial fill upon patient request if the prescription is f... Start Date: 12/13/21 Status: OrderedTylenol Extra Strength 500 mg oral tablet 2 tablet = 1,000 mg, By Mouth, Every 4 hours, PRN for pain, # 120 tablet, 0 Refills, Maintenance, 12/13/21 14:17:00 EDT, Tablet, [facility] [...] Dr Matt Gutierrez by pharmacy records.4Managed by [id number] by PCP with Tylenol Social History Social History Type Response Smoking Status Never (less than 100 in life time) entered on: 08/22/21 Sex Patient Care team information PersonnelName: Abdon Beard MD Address: Address: [address] [place] [address]
--- OUTSIDE RECORDS SUMMARY | 2022-03-31 18:24 | XMS_ITS | Continuity of Care Document ---
:1990 Author Organization [facility] ic Address [address] [place] [address]- Care Team Providers Name Role Phone Abdon Beard MD Primary Care Physician Encounter [facility] Date(s): 11/09/20 - 02/24/[address] [address]- Attending Physician: Not on Staff, Attending MD [...] '943Admin Note: TD4 Admin Note: unknown exact [id number] Note: unknown exact date Medications amLODIPine 10 mg oral tablet 1 tablet = 10 mg, By Mouth, Daily, 0 Refills, Maintenance, 02/03/21 9:50:00 EST, Tablet, ; Start Date: 02/03/21 Status: Orderedbedside commode bedside commode, See Instructions, # 1 each, Refills 0, Tot. Refills 0, Maintenance, DX DM E 11.9 using at bedside, 11/14/17 17:17:55 EDT, Compound Start Date: 11/14/17 Status: OrderedDEXCOM G6 COURT SECURITY OFFICER DEXCOM G6 COURT SECURITY OFFICER, See Instructions, # 1 each, Refills 0, Tot. Refills 0, Maintenance, Use to monitor blood lgucose levels [facility]: [id number] E10.9, 04/06/20 12:07:00 EST, Supply, 170, cm, 03/05/20 14:05:00 EST, Height, 82, kg, 03/05/20 14:53:00... Start Date: 04/06/20 Status: OrderedDEXCOM G6 SENSOR, 3 PACK DEXCOM G6 SENSOR, 3 PACK, See Instructions, # 3 each, Refills 3, Tot. Refills 3, Maintenance, Use tomonitor blood sugar. E10.9 [facility] [id number], 07/16/20 14:20:00 EDT, Supply Start Date: 07/16/20 Status: OrderedDEXCOM G6 TRANSMITTER DEXCOM G6 TRANSMITTER, See Instructions, # 1 each, Refills 3, Tot. Refills 3, Maintenance, DEXCOM [id number], 07/16/20 14:20:00 EDT, Supply Start Date: 07/16/20 Status: Ordereddiclofenac 1% topical gel = 2 Gm, Topically, 4 times a day, # 112 Gm, 0 Refills, Maintenance, 02/05/21 12:34:00 EST, Gel, [facility], Partial fill upon patient request [...] Refills, Maintenance, 11/17/20 10:19:00 EDT, Tablet, [facility]/pharmacy #[id number], Partial fillupon patient request if the prescription is for a... Start Date: 11/17/20 Status: OrderedLasix 40 mg oral tablet 40 mg, 1, tablet, By Mouth, Daily, # 30 tablet, Refills 0, Tot. Refills 0, Maintenance, 02/05/21 12:27:00 EST, Route to Pharmacy Electronically, [facility], Partial fill upon patient request if the prescription is for a schedule II opioi... Start Date: 02/05/21 Stop Date: 03/07/21 Status: OrderedLevemir FlexTouch 100 units/mL subcutaneous solution See Instructions, Take 40 units once daily. E11.65. 90-day supply., # 45 mL, 3 Refills, Maintenance,11/17/20 10:20:00 EDT, [facility]/pharmacy #[id number], Stop Lantus. Start Levemir., 170, cm, [...] tablet, 0 Refills, Maintenance, 02/05/21 12:28:00 EST, [facility], Partial fill upon patient request [...] type 2(Confirmed)1 Active Hypertension(Confirmed) Active Care Coordination [facility], [place]akan Active Jeanne, CC (Confirmed) delivery(Confirmed) Active delivery(Confirmed) Active 1Not seem at [facility] since 08/12/2016. Multiple no show in our center. She is seen by other provider Dr Matt Gutierrez by pharmacy records. Social History Social History Type Response Smoking Status Never smoker entered on: 03/28/17 Sex
--- OUTSIDE RECORDS SUMMARY | 2022-03-31 18:24 | XMS_ITS | Continuity of Care Document ---
:1990 Author Organization [facility] ic Address [address] [place] [address]- Care Team Providers Name Role Phone Abdon Beard MD Primary Care Physician Encounter [facility] [place] Date(s): 09/06/20 - 12/02/[address] [address]- Attending Physician: Not on Staff, Attending MD [...] '943Admin Note: TD4 Admin Note: unknown exact [id number] Note: unknown exact date Medications aspirin 81 mg oral delayed release tablet 162 mg, 2, tablet, By Mouth, Daily, To begin taking at 12 weeks gestational age - Approx. Apr 14 2020, # 30 tablet, Refills 0, Tot. Refills 0, Maintenance, 03/05/20 14:49:00 EST, Route to Pharmacy Electronically, [facility]/pharmacy #[id number], Partial fill upo... Start Date: 03/05/20 Status: Orderedbedside commode bedside commode, See Instructions, # 1 each, Refills 0, Tot. Refills 0, Maintenance, DX DM E 11.9 using at bedside, 11/14/17 17:17:55 EDT, Compound Start Date: 11/14/17 Status: OrderedDEXCOM G6 AIRPLANE RIGGER DEXCOM G6 AIRPLANE RIGGER, See Instructions, # 1 each, Refills 0, Tot. Refills 0, Maintenance, Use to monitor blood lgucose levels [facility]: [id number] E10.9, 04/06/20 12:07:00 EST, Supply, 170, cm, 03/05/20 14:05:00 EST, Height, 82, kg, 03/05/20 14:53:00... Start Date: 04/06/20 Status: OrderedDEXCOM G6 SENSOR, 3 PACK DEXCOM G6 SENSOR, 3 PACK, See Instructions, # 3 each, Refills 3, Tot. Refills 3, Maintenance, Use tomonitor blood sugar. E10.9 [facility] [id number], 07/16/20 14:20:00 EDT, Supply Start Date: 07/16/20 Status: OrderedDEXCOM G6 TRANSMITTER DEXCOM G6 TRANSMITTER, See Instructions, # 1 each, Refills 3, Tot. Refills 3, Maintenance, DEXCOM [id number], 07/16/20 14:20:00 EDT, Supply Start Date: 07/16/20 [...] Start Date: 11/17/20 Stop Date: 03/17/21 Status: OrderedJardiance 10 mg oral tablet 1 tablet = 10 mg, By Mouth, Daily in AM, Take 1 tablet daily in the morning. . 90-day supply.,# 90 tablet, 3 Refills, Maintenance, 11/17/20 10:19:00 EDT, Tablet, [facility]/pharmacy #[id number], Partial fillupon patient request if the prescription is for a... Start Date: 11/17/20 Status: OrderedLevemir FlexTouch 100 units/mL subcutaneous solution See Instructions, Take 43 units once daily. . 90-day supply., # 45 mL, 3 Refills, Maintenance,11/17/20 10:20:00 EDT, [id number], Stop Lantus. Start Levemir., 170, cm, 03/05/20 14:05:00 EST, Height, 82, kg, 03/05/20 14:53:00 EST, Dry Weight Start Date: 11/17/20 Status: OrderedNIFEdipine 30 mg oral tablet, extended release 30 mg, 1, tablet, By Mouth, Daily, do not crush or chew, # 90 tablet, Refills 2, Tot. Refills 2, Maintenance, 03/05/20 14:48:00 EST, Route to Pharmacy Electronically, [facility]/pharmacy #[id number], Partial fill upon patient request if the prescription is for a s... Start Date: 03/05/20 Status: OrderedNovoLOG FlexPen 100 units/mL subcutaneous solution See Instructions, Take 11-21 units, 3 times daily before meals. E11.65. 90-day supply., # 75 mL, 3 Refills, Maintenance, 11/17/20 10:20:00 EDT, Solution, [facility]/pharmacy #[id number], Partial fill upon patient request if the prescription is for a schedule II op... Start Date: 11/17/20 Status: OrderedPrenatal Multivitamins with Folic Acid 1 mg oral tablet 1 tablet, By Mouth, Daily, # 90 tablet, 2 Refills, Maintenance, 03/05/20 14:51:00 EST, Tablet, [facility]/pharmacy #[id number], Partial fill upon patient request [...] type 2(Confirmed)1 Active Hypertension(Confirmed) Active Care Coordination [facility], [place]akan Active Angel, CC (Confirmed) delivery(Confirmed) Active delivery(Confirmed) Active 1Not seem at [facility] since 08/12/2016. Multiple no show in our center. She is seen by other provider Dr Matt Gutierrez by pharmacy records. Social History Social History Type Response Smoking Status Never smoker entered on: 03/28/17 Sex
--- OUTSIDE RECORDS SUMMARY | 2022-03-31 18:24 | XMS_ITS | Continuity of Care Document ---
:1990 Author Organization [facility] Address [address] [place] [address]- Care Team Providers Name Role Phone Chirag CARLSON, Abdon Primary Care Physician [facility] Date(s): 09/07/21 - 10/28/21 [facility] [address] [place] [id number] Attending Physician: Carl Mcdonnell DO [...] '943Admin Note: TD4 Admin Note: unknown exact [id number] Note: unknown exact date Medications Alcohol Pads [...] 08/24/21 11:43:00 EDT, Route to Pharmacy Electronically, [facility]/pharmacy #[id number], Partial fill upon patient request ifthe prescription is for a schedule II opioid drug... Start Date: 08/24/21 Status: Orderedaspirin 81 mg oral delayed release tablet 2 tablet = 162 mg, By Mouth, Daily, # 90 tablet, 3 Refills, Maintenance, 10/05/21 12:28:00 EDT, CR Tablet, [facility]/pharmacy #[id number], Partial fill upon patient request [...] 08/24/21 11:44:00 EDT, Route to Pharmacy Electronically, [facility]/pharmacy #[id number], Partial fill u... Start Date: 08/24/21 Status: OrderedLevemir FlexTouch 100 units/mL subcutaneous solution = 10 units, Subcutaneous Injection, Daily at bedtime, # 15 mL, 0 Refills, Maintenance, 08/24/21 11:26:00 EDT, Injection, [facility]/pharmacy #[id number], Partial fill upon patient request if the prescription is fora schedule II opioid drug., 168 cm, 08/24/21 10:... Start Date: 08/24/21 Stop Date: 09/23/21 Status: OrderedMetoprolol Tartrate 25 mg oral tablet 2 tablet = 50 mg, By Mouth, 2 times a day, # 120 each, 4 Refills, Maintenance, 09/07/21 18:00:00 EDT, Tablet, [facility]/pharmacy #[id number], Partial fill upon patient request if the prescription is for a scheduleII opioid drug., 168, cm, 09/07/21 10:41:00 EDT,... Start Date: 09/07/21 Status: Orderednitrofurantoin macrocrystals 100 mg oral capsule See Instructions, 1 capsule By Mouth twice daily x 7 days, # 14 each, 0 Refills, Acute 11/26/21 15:27:00 EDT, 10/28/21 15:26:00 EDT, [facility]/pharmacy #[id number], Partial fill upon patient request [...] Dry Weight Start Date: 08/24/21 Status: OrderedPen [place], 30 G x 8 mm BD Ultra [...] Refills, Maintenance, 08/24/21 11:27:00 EDT, Chew Tablet, [facility]/pharmacy #[id number], Partial fill upon patient request if the prescription is for a schedule II opioid drug., 1 tablet Chew Daily, 168, cm, 08/24/21 10:36:0... Start Date: 08/24/21 Status: OrderedProAir HFA 90 mcg/inh inhalation aerosol See Instructions, PRN Wheezing/Shortness of Breath, Inhale 2 puff every 4 to 6 hours as needed, # 18Gm, 0 Refills, Maintenance, 08/24/21 11:43:00 EDT, Inhaler, [facility]/pharmacy #[id number], Partial fill upon patient request [...] Active Obese class I(Confirmed) Active Care Coordination [facility], [place] Active Jeanne, CC (Confirmed) Pre-existing diabetes mellitus Active affecting , antepartum(Confirmed) Poor vision(Confirmed)6 Active 1Managed by PCP. WEll controlled.2Self-manages. States currently stable. No medications.3Not seem at [facility] since 08/12/2016. Multiple no show in our center. She is seen by other provider Dr Matt Gutierrez by pharmacy records.4Managed by [id number] by PCP with [id number], states sees shadows and has blurry vision. Last eye doctor appointment was several years ago. Social History Social History Type Response Smoking Status Never (less than 100 in life time) entered on: 08/22/21 Sex Care Team PersonnelName: Abdon Beard MD Address: [address] [place] [address]
--- OUTSIDE RECORDS SUMMARY | 2022-03-31 18:24 | XMS_ITS | Continuity of Care Document ---
:1990 Author Organization [facility] ic Address [address] [place] [id number]- Care Team Providers Name Role Phone Abdon Beard MD Primary Care Physician [facility]counter [facility] Date(s): 08/25/21 - 09/24/[address] [id number] Allergies, Adverse Reactions, Alerts Substance Reaction [...] '943Admin Note: TD4 Admin Note: unknown exact [id number] Note: unknown exact date Medications acetaminophen 325 [...] 08/24/21 11:43:00 EDT, Route to Pharmacy Electronically, [facility]/pharmacy #[id number], Partial fill upon patient request ifthe prescription [...] 08/24/21 11:44:00 EDT, Route to Pharmacy Electronically, [facility]/pharmacy #[id number], Partial fill u... Start Date: 08/24/21 Status: OrderedLevemir FlexTouch 100 units/mL subcutaneous solution = 8 units, Subcutaneous Injection, Daily at bedtime, # 10 mL, 0 Refills, Maintenance, 08/24/21 11:26:00 EDT, Injection, [facility]/pharmacy #[id number], Partial fill upon patient request if the prescription is for a schedule II opioid drug., 168, cm, 08/24/21 10:3... Start Date: 08/24/21 Stop Date: 09/23/21 Status: OrderedMetoprolol Tartrate 25 mg oral tablet 2 tablet = 50 mg, By Mouth, 2 times a day, # 120 each, 4 Refills, Maintenance, 09/07/21 18:00:00 EDT, Tablet, [facility]/pharmacy #[id number], Partial fill upon patient [...] Dry Weight Start Date: 08/24/21 Status: OrderedPen [place], 30 G x 8 mm BD Ultra [...] Refills, Maintenance, 08/24/21 11:27:00 EDT, Chew Tablet, [facility]/pharmacy #[id number], Partial fill upon patient request if the prescription is for a schedule II opioid drug., 1 tablet Chew Daily, 168, cm, 08/24/21 10:36:0... Start Date: 08/24/21 Status: OrderedProAir HFA 90 mcg/inh inhalation aerosol See Instructions, PRN Wheezing/Shortness of Breath, Inhale 2 puff every 4 to 6 hours as needed, # 18Gm, 0 Refills, Maintenance, 08/24/21 11:43:00 EDT, Inhaler, [facility]/pharmacy #[id number], Partial fill upon patient [...] class I(Confirmed) Active Care Coordination [facility], [place] Active Jeanne, CC (Confirmed) Pre-existing diabetes mellitus Active affecting , antepartum(Confirmed) Poor vision(Confirmed)6 Active 1Managed by PCP. WEll controlled.2Self-manages. States currently stable. No medications.3Not seem at [facility] since 08/12/2016. Multiple no show in our center. She is seen by other provider Dr Matt Gutierrez by pharmacy records.4Managed by [id number] by PCP with [id number], states sees shadows and has blurry vision. Last eye doctor appointment was several years ago. Social History Social History Type Response Smoking Status Never (less than 100 in life time) entered on: 08/22/21 Sex
--- OUTSIDE RECORDS SUMMARY | 2022-03-31 18:24 | XMS_ITS | Continuity of Care Document ---
:1990 Author Organization [facility] ic Address [address] [place] [address]- Care Team Providers Name Role Phone Not on Staff, PCP Primary Care Physician Unavailable Encounter [facility] Date(s): 03/30/20 - 05/05/[address] [address]- Attending Physician: Christiana Quiros MD Admitting Physician: Christiana Quiros MD Referring Physician: Nina Delcid MD Allergies, Adverse Reactions, Alerts Substance Reaction [...] '943Admin Note: TD4 Admin Note: unknown exact [id number] Note: unknown exact date Medications aspirin 81 mg oral delayed release tablet 162 mg, 2, tablet, By Mouth, Daily, To begin taking at 12 weeks gestational age - Approx. Apr 14 2020, # 30 tablet, Refills 0, Tot. Refills 0, Maintenance, 03/05/20 14:49:00 EST, Route to Pharmacy Electronically, [facility]/pharmacy #[id number], Partial fill upo... Start Date: 03/05/20 Status: Orderedbedside commode bedside commode, See Instructions, # 1 each, Refills 0, Tot. Refills 0, Maintenance, DX DM E 11.9 using at bedside, 11/14/17 17:17:55 EDT, Compound Start Date: 11/14/17 Status: OrderedDEXCOM G6 WELDER PLASTIC DEXCOM G6 WELDER PLASTIC, See Instructions, # 1 each, Refills 0, Tot. Refills 0, Maintenance, Use to monitor blood lgucose levels [facility]: [id number] E10.9, 04/06/20 12:07:00 EST, Supply, 170, cm, 03/05/20 14:05:00 EST, Height, 82, kg, 03/05/20 14:53:00... Start Date: 04/06/20 Status: OrderedDEXCOM G6 SENSOR, 3 PACK DEXCOM G6 SENSOR, 3 PACK, See Instructions, # 3 each, Refills 3, Tot. Refills 3, Maintenance, Use tomonitor blood sugar. E10.9 [facility] [address]-89, 04/06/20 12:07:00 EST, Supply, 170, cm, 03/05/20 14:05:00 EST, Height, 82, kg, 03/05/20 14:53:00 EST... Start Date: 04/06/20 Status: OrderedDEXCOM G6 TRANSMITTER DEXCOM G6 TRANSMITTER, See Instructions, # 2 each, Refills 3, Tot. Refills 3, Maintenance, DEXCOM [id number], 04/06/20 12:07:00 EST, Supply, 170, cm, 03/05/20 [...] 03/05/20 14:48:00 EST, Route to Pharmacy Electronically, [facility]/pharmacy #[id number], Partial fill upon patient request if the prescription is for a s... Start Date: 03/05/20 Status: OrderedNovoLOG FlexPen 100 units/mL subcutaneous solution See Instructions, Max daily dose 50 units, per sliding scale. E11.65, # 30 mL, 5 Refills, Maintenance, 02/05/20 14:37:00 EST, Solution, [facility]/pharmacy #[id number], Partial fill upon patient request if the prescription is for a schedule II opioid drug., 170, c... Start Date: 02/05/20 Status: OrderedPrenatal Multivitamins with Folic Acid 1 mg oral tablet 1 tablet, By Mouth, Daily, # 90 tablet, 2 Refills, Maintenance, 03/05/20 14:51:00 EST, Tablet, [facility]/pharmacy #[id number], Partial fill upon patient request if the prescription is for a schedule II opioid drug., 1 tablet By Mouth Daily, 170, cm, 01/08/20 13:3... Start Date: 03/05/20 Status: OrderedTrulicity Pen 1.5 mg/0.5 mL subcutaneous solution 0.5 mL = 1.5 mg, Subcutaneous Injection, Every week, Take 1.5mg once weekly. E11.65, # 2.5 mL, 5 Refills, Maintenance, 04/22/20 16:38:00 EST, Solution, [facility]/pharmacy #[id number], Partial fill upon [...] type 2(Confirmed)1 Active Hypertension(Confirmed) Active Care Coordination [facility], [place] Active Angel, CC (Confirmed) delivery(Confirmed) Active delivery(Confirmed) Active 1Not seem at [facility] since 08/12/2016. Multiple no show in our center. She is seen by other provider Dr Matt Gutierrez by pharmacy records. Social History Social History Type Response Smoking Status Never smoker entered on: 03/28/17 Sex
--- OUTSIDE RECORDS SUMMARY | 2022-03-31 18:24 | XMS_ITS | Continuity of Care Document ---
:1990 Author Organization [facility] Address [address] [place] [address]- Care Team Providers Name Role Phone Not on Staff, PCP Primary Care Physician Unavailable Encounter [facility] Date(s): 03/08/20 - 06/19/20 [facility] [address] [place] [address]- Attending Physician: Angela Hartmann MD Admitting Physician: [...] '943Admin Note: TD4 Admin Note: unknown exact [id number] Note: unknown exact date Medications aspirin 81 mg oral delayed release tablet 162 mg, 2, tablet, By Mouth, Daily, To begin taking at 12 weeks gestational age - Approx. Apr 14 2020, # 30 tablet, Refills 0, Tot. Refills 0, Maintenance, 03/05/20 14:49:00 EST, Route to Pharmacy Electronically, [facility]/pharmacy #[id number], Partial fill upo... Start Date: 03/05/20 Status: Orderedbedside commode bedside commode, See Instructions, # 1 each, Refills 0, Tot. Refills 0, Maintenance, DX DM E 11.9 using at bedside, 11/14/17 17:17:55 EDT, Compound Start Date: 11/14/17 Status: OrderedDEXCOM G6 SKYDIVING INSTRUCTOR DEXCOM G6 SKYDIVING INSTRUCTOR, See Instructions, # 1 each, Refills 0, Tot. Refills 0, Maintenance, Use to monitor blood lgucose levels [facility]: [id number] E10.9, 04/06/20 12:07:00 EST, Supply, 170, cm, 03/05/20 14:05:00 EST, Height, 82, kg, 03/05/20 14:53:00... Start Date: 04/06/20 Status: OrderedDEXCOM G6 SENSOR, 3 PACK DEXCOM G6 SENSOR, 3 PACK, See Instructions, # 3 each, Refills 3, Tot. Refills 3, Maintenance, Use tomonitor blood sugar. E10.9 [facility] [id number], 04/06/20 12:07:00 EST, Supply, 170, cm, 03/05/20 14:05:00 EST, Height, 82, kg, 03/05/20 14:53:00 EST... Start Date: 04/06/20 Status: OrderedDEXCOM G6 TRANSMITTER DEXCOM G6 TRANSMITTER, See Instructions, # 2 each, Refills 3, Tot. Refills 3, Maintenance, DEXCOM [id number], 04/06/20 12:07:00 EST, Supply, 170, cm, 03/05/20 [...] 5 Refills, Maintenance, 06/17/20 13:05:00 EDT, Tablet, [facility]/pharmacy #[id number], Partial fill upon patient request if the prescription is for a schedule II opi... Start Date: 06/17/20 Status: OrderedLevemir FlexTouch 100 units/mL subcutaneous solution See Instructions, Take 40 units once daily. E11.65, # 30 mL, 5 Refills, Maintenance, 02/18/20 16:48:00 EST, [facility]/pharmacy #[id number], Stop Lantus. Start Levemir., 170, cm, 01/08/20 13:38:00 EST, Height, 99.1, kg, 01/03/20 5:38:00 EST, Dry Weight Start Date: 02/18/20 Status: OrderedNIFEdipine 30 mg oral tablet, extended release 30 mg, 1, tablet, By Mouth, Daily, do not crush or chew, # 90 tablet, Refills 2, Tot. Refills 2, Maintenance, 03/05/20 14:48:00 EST, Route to Pharmacy Electronically, [facility]/pharmacy #[id number], Partial fill upon patient request if the prescription is for a s... Start Date: 03/05/20 Status: OrderedNovoLOG FlexPen 100 units/mL subcutaneous solution See Instructions, Max daily dose 50 units, per sliding scale. E11.65, # 30 mL, 5 Refills, Maintenance, 02/05/20 14:37:00 EST, Solution, [facility]/pharmacy #[id number], Partial fill upon patient request if the prescription is for a schedule II opioid drug., 170, c... Start Date: 02/05/20 Status: OrderedPrenatal Multivitamins with Folic Acid 1 mg oral tablet 1 tablet, By Mouth, Daily, # 90 tablet, 2 Refills, Maintenance, 03/05/20 14:51:00 EST, Tablet, [facility]/pharmacy #[id number], Partial fill upon patient request [...] type 2(Confirmed)1 Active Hypertension(Confirmed) Active Care Coordination [facility], [place] Active Jeanne, CC (Confirmed) delivery(Confirmed) Active delivery(Confirmed) Active 1Not seem at [facility] since 08/12/2016. Multiple no show in our center. She is seen by other provider Dr Matt Gutierrez by pharmacy records. Social History Social History Type Response Smoking Status Never smoker entered on: 03/28/17 Sex
--- OUTSIDE RECORDS SUMMARY | 2022-03-31 18:24 | XMS_ITS | Continuity of Care Document ---
:1990 Author Organization [facility] Address [address] [place] [address]- Care Team Providers Name Role Phone Not on Staff, PCP Primary Care Physician Unavailable [place] [facility] [place] 11/17/19 - 05/16/[address] [address]- Attending Physician: Not on Staff, Attending MD Admitting Physician: Not on Staff, Admitting MD Referring Physician: Brenden Guy NP Allergies, Adverse Reactions, Alerts Substance Reaction [...] '943Admin Note: TD4 Admin Note: unknown exact [id number] Note: unknown exact date Medications aspirin 81 mg oral delayed release tablet 162 mg, 2, tablet, By Mouth, Daily, To begin taking at 12 weeks gestational age - Approx. Apr 14 2020, # 30 tablet, Refills 0, Tot. Refills 0, Maintenance, 03/05/20 14:49:00 EST, Route to Pharmacy Electronically, [facility]/pharmacy #[id number], Partial fill upo... Start Date: 03/05/20 Status: Orderedbedside commode bedside commode, See Instructions, # 1 each, Refills 0, Tot. Refills 0, Maintenance, DX DM E 11.9 using at bedside, 11/14/17 17:17:55 EDT, Compound Start Date: 11/14/17 Status: OrderedDEXCOM G6 BUTADIENE COMPRESSOR OPERATOR DEXCOM G6 BUTADIENE COMPRESSOR OPERATOR, See Instructions, # 1 each, Refills 0, Tot. Refills 0, Maintenance, Use to monitor blood lgucose levels [facility]: [id number] E10.9, 04/06/20 12:07:00 EST, Supply, 170, cm, 03/05/20 14:05:00 EST, Height, 82, kg, 03/05/20 14:53:00... Start Date: 04/06/20 Status: OrderedDEXCOM G6 SENSOR, 3 PACK DEXCOM G6 SENSOR, 3 PACK, See Instructions, # 3 each, Refills 3, Tot. Refills 3, Maintenance, Use tomonitor blood sugar. E10.9 [facility] [id number], 04/06/20 12:07:00 EST, Supply, 170, cm, 03/05/20 14:05:00 EST, Height, 82, kg, 03/05/20 14:53:00 EST... Start Date: 04/06/20 Status: OrderedDEXCOM G6 TRANSMITTER DEXCOM G6 TRANSMITTER, See Instructions, # 2 each, Refills 3, Tot. Refills 3, Maintenance, DEXCOM [id number], 04/06/20 12:07:00 EST, Supply, 170, cm, 03/05/20 [...] 03/05/20 14:48:00 EST, Route to Pharmacy Electronically, [facility]/pharmacy #[id number], Partial fill upon patient request if the prescription is for a s... Start Date: 03/05/20 Status: OrderedNovoLOG FlexPen 100 units/mL subcutaneous solution See Instructions, Max daily dose 50 units, per sliding scale. E11.65, # 30 mL, 5 Refills, Maintenance, 02/05/20 14:37:00 EST, Solution, [facility]/pharmacy #[id number], Partial fill upon patient request if the prescription is for a schedule II opioid drug., 170, c... Start Date: 02/05/20 Status: OrderedPrenatal Multivitamins with Folic Acid 1 mg oral tablet 1 tablet, By Mouth, Daily, # 90 tablet, 2 Refills, Maintenance, 03/05/20 14:51:00 EST, Tablet, [facility]/pharmacy #[id number], Partial fill upon patient request if the prescription is for a schedule II opioid drug., 1 tablet By Mouth Daily, 170, cm, 01/08/20 13:3... Start Date: 03/05/20 Status: OrderedTrulicity Pen 1.5 mg/0.5 mL subcutaneous solution 0.5 mL = 1.5 mg, Subcutaneous Injection, Every week, Take 1.5mg once weekly. E11.65, # 2.5 mL, 5 Refills, Maintenance, 04/22/20 16:38:00 EST, Solution, [facility]/pharmacy #[id number], Partial fill upon patient [...] Active Care Coordination [facility], [place] Active Angel, CC (Confirmed) delivery(Confirmed) Active delivery(Confirmed) Active 1Not seem at [facility] since 08/12/2016. Multiple no show in our center. She is seen by other provider Dr Matt Gutierrez by pharmacy records. Social History Social History Type Response Smoking Status Never smoker entered on: 03/28/17 Sex
--- OUTSIDE RECORDS SUMMARY | 2022-03-31 18:25 | XMS_ITS | Continuity of Care Document ---
:1990 Author Organization [facility] ic Address [address] [place] [address]- Care Team Providers Name Role Phone Abdon Beard MD Primary Care Physician [facility]counter [facility] Date(s): 07/26/21 - 08/25/[address] [address] Allergies, Adverse Reactions, Alerts Substance [...] '943Admin Note: TD4 Admin Note: unknown exact [id number] Note: unknown exact date Medications acetaminophen 325 [...] 11:43:00 EDT, Route to Pharmacy Electronically, [facility]/pharmacy #[id number], Partial fill upon patient request ifthe prescription is for a schedule II opioid drug... Start Date: 08/24/21 Status: Orderedduloxetine 30 mg oral enteric coated capsule 1 capsule = 30 mg, By Mouth, 2 times a day, # 180 capsule, 3 Refills, Maintenance, 08/24/21 11:44:00EDT, Capsule, [facility]/pharmacy #[id number], Partial fill upon patient request [...] 11:44:00 EDT, Route to Pharmacy Electronically, [facility]/pharmacy #[id number], Partial fill u... Start Date: 08/24/21 Status: OrderedLevemir FlexTouch 100 units/mL subcutaneous solution = 8 units, Subcutaneous Injection, Daily at bedtime, # 10 mL, 0 Refills, Maintenance, 08/24/21 11:26:00 EDT, Injection, [facility]/pharmacy #[id number], Partial fill upon patient request if the prescription is for a schedule II opioid drug., 168, cm, 08/24/21 10:3... Start Date: 08/24/21 Stop Date: 09/23/21 Status: OrderedMetoprolol Tartrate 25 mg oral tablet 1.5 tablet = 37.5 mg, By Mouth, 2 times a day, # 90 tablet, 3 Refills, Maintenance, 08/24/21 11:44:00 EDT, Tablet, [facility]/pharmacy #[id number], Partial fill upon patient request [...] Dry Weight Start Date: 08/24/21 Status: OrderedPen [place], 30 G x 8 mm BD Ultra [...] Maintenance, 08/24/21 11:27:00 EDT, Chew Tablet, [facility]/pharmacy #[id number], Partial fill upon patient request if the [...] I(Confirmed) Active Care Coordination [facility], [place] Active Angel, CC (Confirmed) Pre-existing diabetes mellitus Active affecting , antepartum(Confirmed) Poor vision(Confirmed)6 Active 1Managed by PCP. WEll controlled.2Self-manages. States currently stable. No medications.3Not seem at [facility] since 08/12/2016. Multiple no show in our center. She is seen by other provider Dr Matt Gutierrez by pharmacy records.4Managed by [id number] by PCP with [id number], states sees shadows and has blurry vision. Last eye doctor appointment was several years ago. Social History Social History Type Response Smoking Status Never (less than 100 in life time) entered on: 08/22/21 Sex
--- OUTSIDE RECORDS SUMMARY | 2022-03-31 18:25 | XMS_ITS | Continuity of Care Document ---
:1990 Author Organization [facility] Address [address] [place] [id number]- Care Team Providers Name Role Phone Chirag CARLSON, Abdon Primary Care Physician [facility] Date[facility]s): 04/16/21 - 04/18/[address] [address] Discharge Disposition: A-Transfer VNA/Home Health Attending Physician: Grisel Painter MD Admitting Physician: Kyaw Jay MD Referring Physician: Not on Staff, Referring [...] Given Diphth/Pertussis, [facility] Cell/Tet(oldterm) 01/24/92 Given Diphth/Pertussis, [facility] Cell/Tet(oldterm) 07/05/89 Given Diphth/Pertussis, [facility] Cell/Tet(oldterm) 88 Given Diphth/Pertussis, [facility] Cell/Tet(oldterm) 88 Given Not Given Vaccine Date Status Refusal Reason influenza virus vaccine, inactivated 03/05/21 Not Given Patient Refuses 1Admin Note: VIS 03/21/11 (given)2Admin Note: hx varicella '[id number] Note: TD4 Admin Note: unknown exact [id number] Note: unknown exact date Medications amLODIPine 10 mg oral tablet 10 mg, 1, tablet, By Mouth, Daily, # 30 tablet, Refills 5, Tot. Refills 5, Maintenance, 03/31/21 14:26:00 EST, Route to Pharmacy Electronically, [facility]/pharmacy #[id number], Partial fill upon patient request ifthe prescription is for a schedule II opioid drug... Start Date: 03/31/21 Status: OrderedamLODIPine 10 mg oral tablet 10 mg, Tablet, By Mouth, 04/18/21 9:00:00 EST Start Date: 04/18/21 Stop Date: 04/18/21 Status: Completedcefpodoxime 200 mg oral tablet 1 tablet = 200 mg, By Mouth, Every 12 hours, for 7 days, # 14 tablet, 0 Refills, Acute 04/25/21 15:24:00 EST, 04/18/21 15:24:00 EST, Tablet, [facility]/pharmacy #[id number], Partial fill upon [...] 06/10/21 15:59:00 EDT, 02/28/21 15:59:00 EST, Capsule, [facility], Partial fill upon patient request... Start Date: 02/28/21 Stop Date: 06/10/21 Status: OrderedDilaudid Inj 0.5 mg, Injection, IV Push Slowly, Every 4 hours, PRN for Pain , Severe, Routine, 04/17/21 3:00:00 EST Start Date: 04/17/21 Stop Date: 04/24/21 Status: Ordereddoxycycline hyclate 100 mg oral capsule [...] Maintenance, 03/26/21 16:17:00 EST, Tablet, [facility]/pharmacy #[id number], Partial fill upon [...] Subcutaneous Injection, Daily Start Date: 04/02/21 Status: Orderedmetoprolol 25 mg oral tablet 25 mg, Tablet, By Mouth, 04/18/21 9:00:00 EST Start Date: 04/18/21 Stop Date: 04/18/21 Status: Completednitroglycerin 0.4 mg sublingual tablet 1 tablet = 0.4 mg, Sublingual, Every 5 minutes, PRN as needed for chest pain, not to exceed 3 doses/15 min--if pain persists, seek medical attention, # 25 tablet, 0 Refills, Maintenance, 03/31/21 14:26:00 EST, Tablet, [id number], Partial fill... Start Date: 03/31/21 Status: OrderedNovoLOG [...] Active Obese class I(Confirmed) Active Care Coordination [facility], [place] Active Jeanne, CC (Confirmed) delivery(Confirmed) Active delivery(Confirmed) Active 1Not seem at [facility] since 08/12/2016. Multiple no show in our center. She is seen by other provider Dr Matt Gutierrez by pharmacy records. Results Orders for Microbiology Reports Name Date Blood Culture 04/16/21 Blood Culture #2 04/16/21 Microbiology Reports TEST:Blood Culture STATUS:Unauthenticated BODY SITE: SOURCE:Blood COLLECTED DATE/TIME:04/16/21 8:59 PMBlood Culture SPECIMEN DESCRIPTION : BLOOD RIGHT SPECIAL REQUESTS : NONE CULTURE : NO GROWTH AFTER 48 HOURS REPORT STATUS : PRELIMINARY REPORT TEST:Blood Culture, Second Order STATUS:Unauthenticated BODY SITE: SOURCE:Blood COLLECTED DATE/TIME:04/16/21 8:59 PMBlood Culture, Second Order SPECIMEN DESCRIPTION : BLOOD LEFT SPECIAL REQUESTS : NONE CULTURE : NO GROWTH AFTER 48 HOURS REPORT STATUS : PRELIMINARY REPORT Radiology Reports Exam Date Time Procedure Performing Provider Status 04/16/21 9:54 PM Foot Min 3 Views Right Akil Howard; Auth ( Verified) Notes:(Foot Min 3 Views Right) Reason For Exam: InfectionRESULT: Foot Min 3 Views Right Foot Min 3 Views Right CLINICAL INDICATION: Hx of Present Illness: Pt coming from home with chest pain. Pt reporting wound to the foot believes is in infected. Pt is speaking in full, clear sentences. RR even and unlabored. Skin is warm and dry.; Reason: Infection; Clinical Question(s): Osteomyelitis COMPARISONS: 03/16/2021 TECHNIQUE: AP, lateral and oblique views of the right foot were obtained. FINDINGS: Status post transmetatarsal amputation similar to 03/16/2021. No osteolytic changes of the remaining bony stump. There is soft tissue emphysema which is not significantly changed from previous study a month ago. The Lisfranc joint space is normally aligned. No retained foreign body. Hindfoot midfoot alignment is normal. IMPRESSION: Status post transmetatarsal amputation without evidence for ongoing osteomyelitis. Soft tissue emphysema and swelling at the amputation stump which is not significantly changed from last month. WSN: [id number] Ordering Physician: Les Ford Dictated By: Mihai Coates MD Dictated Date/Time: 04/16/21 9:58 pm Reviewed By: Mihai Coates MD Signed By: Mihai Coates MD Signed Date/Time: 04/16/21 9:58 pm Transcribed By: ALEXIS Transcribed Date/Time: 04/16/21 9:56 pm Exam Date Time Procedure Performing Provider Status 04/16/21 9:54 PM Chest 2 Views Frontal and Lat Akil Howard; Auth (Verified) Notes:(Chest 2 Views Frontal and Lat) Reason For Exam: Shortness of Breath RESULT: Chest 2 Views Frontal and Lat Chest 2 Views Frontal and Lat Hx of Present Illness: Pt coming from home with chest pain. Pt reporting wound to the foot believes is in infected. Pt is speaking in full, clear sentences. RR even and unlabored. Skin is warm and dry.; Reason: Shortness of Breath; Clinical Question(s): CHF COMPARISON: 04/01/2021 FINDINGS: LINES AND TUBES: None. LUNGS AND PLEURA: Low lung volumes with mild basilar atelectasis. Lungs are otherwise clear with no consolidation. No pleural effusion. No pneumothorax. HEART, MEDIASTINUM AND EVERT: Heart is at the upper limits of normal for size. Normal upper mediastinal and hilar contour. BONES AND SOFT TISSUES: No acute abnormality. IMPRESSION: No acute abnormality. Low lung volumes. WSN: [id number] Ordering Physician: Les Ford Dictated By: Mihai Coates MD Dictated Date/Time: 04/16/21 9:55 pm Reviewed By: Mihai Coates MD Signed By: Mihai Coates MD Signed Date/Time: 04/16/21 9:55 pm Transcribed By: ALEXIS Transcribed Date/Time: 04/16/21 9:54 pm Vital Signs Most recent to oldest 1 2 3 4 [Reference Range]: Height 167 cm 167 cm 167 cm (04/18/21 3:53 PM) (04/18/21 3:21 PM) (04/18/21 11:25 AM) Weight 86.3 kg 86.3 kg (04/17/21 5:56 AM) (04/17/21 5:34 AM) Oxygen Saturation 95 % 100 % 98 % [94-100 %] (04/18/21 3:21 PM) (04/18/21 11:25 AM) (04/18/21 7:58 AM) Pulse Rate [55-90 bpm] 85 bpm 88 bpm 86 bpm (04/18/21 3:21 PM) (04/18/21 11:25 AM) (04/18/21 9:26 AM) Body Mass Index 30.94 30.94 [18.5-24.99] *>HHI* *>HHI* (04/17/21 5:56 AM) (04/17/21 5:34 AM) Blood Pressure 146/90 mm Hg 169/102 mm Hg 148/84 mm Hg 148/84 mm Hg [90-138/55-84 mm Hg] *H* *H* *H* *H* (04/18/21 3:21 PM) (04/18/21 11:25 AM) (04/18/21 9:26 AM) (04/18/21 9:26 AM) Respiratory Rate [16-30 18 br/min 18 br/min 18 br/min br/min] (04/18/21 5:53 PM) (04/18/21 5:23 PM) (04/18/21 3:21 PM) Temperature [96.8-100.4 98.1 DegF 98.0 DegF 98.2 DegF DegF] (04/18/21 3:21 PM) (04/18/21 11:25 AM) (04/18/21 7:58 AM) Liters per Minute 2 L/min (04/16/21 10:14 PM) Mode of Delivery Room air Room air Room air (Oxygen) (04/18/21 3:21 PM) (04/18/21 11:25 AM) (04/18/21 7:58 AM) Blood pressure sites Arm, right Arm, left Arm, left (04/18/21 3:21 PM) (04/18/21 11:25 AM) (04/18/21 7:58 AM) Temperature Route Oral Oral Oral (04/18/21 3:21 PM) (04/18/21 11:25 AM) (04/18/21 7:58 AM) Dry Weight 86.3 kg (04/17/21 5:34 AM) Weight Obtained Via Bed scale (04/17/21 5:56 AM) Social History Social History Type Response Smoking Status Never smoker entered on: 03/28/17 Sex
--- OUTSIDE RECORDS SUMMARY | 2022-03-31 18:25 | XMS_ITS | Continuity of Care Document ---
:1990 Author Organization [facility] Address [address] [place] [id number]- Care Team Providers Name Role Phone Brenden Guy NP Primary Care Physician [facility] Date[facility]s): 03/27[facility]19 - 04/06/[address] [address]- [facility] Attending Physician: Michael Marquez Admitting Physician: AdmMichael [...] '[id number] Note: TD4 Admin Note: unknown exact [id number] Note: unknown exact date Medications bedside commode [...] Diabetes mellitus type 2(Confirmed)1 Active Care Coordination [facility], [place] Active Jeanne, CC (Confirmed) 1Not seem at [facility] since 08/12/2016. Multiple no show in our center. She is seen by other provider Dr Matt Gutierrez by pharmacy records. Social History Social History Type Response Smoking Status Never smoker entered on: 03/28/17 Sex
--- OUTSIDE RECORDS SUMMARY | 2022-03-31 18:25 | XMS_ITS | Continuity of Care Document ---
:1990 Author Organization [facility] Address [address] [place] [address]- Care Team Providers Name Role Phone Chirag CARLSON, Abdon Primary Care Physician Encounter [facility] Date(s): 01/16/22 - 01/19/[address] [id number] [[email or web address] Discharge Disposition: A-D/C Home Attending Physician: Mariann Pineda MD Admitting Physician: Emir Paula MD Referring Physician: Not on Staff, Referring [...] '[id number] Note: TD4 Admin Note: unknown exact [id number] Note: unknown exact date Medications Alcohol Pads [...] 12/13/21 14:16:00 EDT, Route to Pharmacy Electronically, [facility]/pharmacy #[id number], Partial fill upon patient request if the prescriptio... Start Date: 12/13/21 Status: OrderedCrestor 5 mg oral tablet 1 tablet = 5 mg, By Mouth, Daily, # 30 tablet, 0 Refills, Maintenance, 01/19/22 13:30:00 EST, Tablet, [facility]/pharmacy #[id number], Partial fill upon patient request if the prescription is for a schedule II opioid drug., 160, cm, 01/19/22 8:55:00 EST, Height, 9... Start Date: 01/19/22 Status: OrderedDilaudid Inj 0.5 mg, Injection, IV Push Slowly, Once, STAT, 01/19/22 1:20:00 EST, Stop date 01/19/22 1:20:00 EST Start Date: 01/19/22 Stop Date: 01/19/22 Status: CompletedFreestyle Lancets See Instructions, # 600 each, Refills [...] 01/19/22 13:34:00 EST, Route to Pharmacy Electronically, [id number], Partial fill upon patient request if the prescription is for a schedule II opi... Start Date: 01/19/22 Status: OrderedLevemir FlexTouch 100 units/mL subcutaneous solution See Instructions, INJECT 8 UNITS SUBCUTANEOUSLY AT BEDTIME FOR 30 DAYS, # 15 Unknown, 0 Refills, Maintenance, 12/19/21 16:07:00 EDT, [id number], 168, cm, 12/13/21 12:57:00 EDT, Height, 90, kg, 12/13/21 11:35:00 EDT, Dry Weight Start Date: 12/19/21 Status: Orderedlisinopril 10 mg oral tablet 10 mg, 1, tablet, By Mouth, Daily, # 30 tablet, Refills 0, Tot. Refills 0, Maintenance, 01/19/22 13:31:00 EST, Route to Pharmacy Electronically, [id number], Partial fill upon patient request ifthe prescription is for a schedule II opioid drug... Start Date: 01/19/22 Status: Orderedmetoprolol 100 mg oral tablet, extended release 200 mg, 2, tablet, By Mouth, Daily, # 60 tablet, Refills 0, Tot. Refills 0, Maintenance, 01/19/22 13:29:00 EST, Route to Pharmacy Electronically, [id number], Partial fill upon patient request if the prescription is for a schedule II opioid sheila... Start Date: 01/19/22 Status: OrderedNIFEdipine (Eqv-Procardia XL) 90 mg oral tablet, extended release 1 tablet = 90 mg, By Mouth, Daily, # 30 tablet, 0 Refills, Maintenance, 12/13/21 14:16:00 EDT, [id number], Partial fill upon patient [...] 12/13/21 14:17:00 EDT, Route to Pharmacy Electronically, [facility]/pharmacy #[id number], Partial fill upon elisa... Start Date: 12/13/21 Status: OrderedPeak Flow Meter (Adult) See Instructions, # 1 each, Maintenance, Use when wheezing or chest tightness. Call for peak flow less than 200., 08/24/21 15:17:00 EDT, Supply, 168, cm, 08/24/21 11:41:00 EDT, Height, 75.8, kg, 06/09/21 11:38:00 EDT, Dry Weight Start Date: 08/24/21 Status: OrderedPen [place], 30 G x 8 mm BD Ultra [...] 0 Refills, Maintenance, 08/24/21 11:43:00 EDT, Inhaler, [facility]/pharmacy #[id number], Partial fill upon [...] II Confirmed Active Care Coordination Confirmed Active [facility], Hakan Angel, CC 1Managed by PCP. WEll controlled.2Self-manages. States currently stable. No medications.3Not seem at [facility] since 08/12/2016. Multiple no show in our center. She is seen by other provider Dr aMtt Gutierrez by pharmacy records.4Managed by [id number] by PCP with Tylenol Results Radiology Reports Exam Date Time Procedure Performing Provider Status 01/17/22 2:[address] Head/Brain W/O Contrast Kasia Whitten; Auth (Verified) Notes:(CT Head/Brain W/O Contrast) Reason For Exam: Headache(s)RESULT: CT Head/Brain W/O Contrast CT Head/Brain W/O Contrast Reason: Headache(s); Clinical Question(s): Subarachnoid Hemorrhage; TECHNIQUE: Noncontrast head CT using axial technique and reconstructed in axial and coronal planes. Weight-based protocol using automatic tube modulation was used to optimize exposure parameters. CTDIvol Head: 45.80 mGy, DLP Head: 773 mGy*cm. COMPARISON: CT head 11/27/2021. MRI brain and MRA head 12/02/2021 FINDINGS: BRAIN and EXTRA-AXIAL SPACES: No parenchymal hemorrhage, midline shift or mass effect. Ventura-white matter differentiation is well preserved. No acute infarct. Negative insular ribbon and hyperdense vessel signs. Ventricles, sulci and basilar cisterns are normal. No white matter lesions. No subarachnoid hemorrhage, subdural or epidural collections. CALVARIUM, SKULL BASE AND SOFT TISSUES: No fractures or suspicious bony lesions. The paranasal sinuses and mastoid air cells are clear. Visualized orbits and globes are intact. The extracranial soft tissues are unremarkable. IMPRESSION: No acute intracranial abnormality. I have personally reviewed the images and I agree with this report. WSN: [id number] Ordering Physician: Cash Knight Dictated By: Minda Lamas DO Dictated Date/Time: 01/17/22 7:23 am Reviewed By: Alma Holland MD Signed By: Alma Holland MD Signed Date/Time: 01/17/22 7:28 am Transcribed By: ALEXIS Transcribed Date/Time: 01/17/22 2:48 am Exam Date Time Procedure Performing Provider Status 01/16/22 1:19 PM Chest 2 Views Frontal and Lat Veronica Smalls (Verified) Notes:(Chest 2 Views Frontal and Lat) Reason For Exam: Chest Pain;Other:RESULT: Chest 2 Views Frontal and Lat Examination: Chest performed on 01/16/2022. History: Chest pain. Findings: Frontal and lateral views of the chest are compared to a prior study dated 11/27/2021. The cardiac and mediastinal silhouettes are within normal limits. The lungs are clear. The osseous and soft tissue structures are unremarkable. Impression: There is no acute cardiopulmonary disease. WSN: [id number] Ordering Physician: Mau Matos Dictated By: Adia Cabello MD Dictated Date/Time: 01/16/22 1:22 pm Reviewed By: Adia Cabello MD Signed By: Adia Cabello MD Signed Date/Time: 01/16/22 1:22 pm Transcribed By: ALEXIS Transcribed Date/Time: 01/16/22 1:22 pm Vital Signs Most recent to oldest 1 2 3 [Reference Range]: Height 160 cm 160 cm 160 cm (01/19/22 8:55 AM) (01/18/22 11:59 PM) (01/18/22 9:12 PM) Weight 95.2 kg 94.1 kg 90 kg (01/19/22 5:44 AM) (01/17/22 5:43 PM) (01/17/22 3:08 AM) Oxygen Saturation [94-100 98 % 96 % 98 % %] (01/19/22 8:55 AM) (01/19/22 1:00 AM) (01/18/22 11:59 PM) Pulse Rate [55-90 bpm] 79 bpm 82 bpm 83 bpm (01/19/22 8:55 AM) (01/19/22 1:00 AM) (01/19/22 12:00 AM) Body Mass Index 36.76 kg/m2 [18.5-24.99 kg/m2] *>HHI* (01/17/22 5:43 PM) Blood Pressure 134/82 mm Hg 119/64 mm Hg 113/71 mm Hg [90-138/55-84 mm Hg] (01/19/22 8:55 AM) (01/19/22 1:00 AM) (12/28 06/17 12:00 AM) Respiratory Rate [16-30 18 br/min 20 br/min 20 br/mi n br/min] (01/19/22 8:55 AM) (01/19/22 1:38 AM) (01/18/22 11:59 PM) Temperature [96.8-100.4 98.6 DegF 98.1 DegF 98.8 Deg F DegF] (01/19/22 8:55 AM) (01/19/22 1:00 AM) (01/18/22 11:59 PM) Liters per Minute 2 L/min 2 L/min 3 L/min (01/18/22 1:36 AM) (01/17/22 8:41 PM) (01/17/22 2:40 PM) Mode of Delivery (Oxygen) Room air Room air Room a ir (01/19/22 8:55 AM) (01/19/22 1:00 AM) (01/18/22 11:59 PM) Blood pressure sites Arm, left Arm, left Arm, right (01/19/22 8:55 AM) (01/19/22 1:00 AM) (01/19/22 12:00 AM) Temperature Route Oral Temporal Oral (01/19/22 8:55 AM) (01/19/22 1:00 AM) (01/18/22 11:59 PM) Dry Weight 94.1 kg (01/17/22 5:43 PM) Weight Obtained Via Bed scale (01/19/22 5:44 AM) Social History Social History Type Response Smoking Status Never (less than 100 in life time) entered on: 08/22/21 Sex Admission evaluation note Cash Knight MD: PERFORM Event Display: Admission Note Authored Date: Patient: ??SHEREEN TAYLOR ? Age:??31 Years?Sex:??Female?:??1990?? Chief Complaint/Reason for Consultation Shortness of breath History of Present Illness The patient is a 31 years old female with past medical history of chronic systolic congestive heartfailure, CKD stage IV, insulin-dependent diabetes mellitus type 2, migraine??who presented to ER with a chief complaint of shortness of breath. ? Patient reported that??she??ran out of her oral medication about 4 days ago and??1 day later the patient??developed??the shortness of breath as sudden onset, happens both on exertion as well as at rest,??associated orthopnea, PND??and lower extremity swelling.?? The patient reported that she was on Lasix in the past but that was stopped because of her kidneys. ? The patient also reported that she has been having intermittent chest pain for 1 month that patientdescribes as gradual in onset, substernal, squeezing, 6 x 10,??with no aggravating or alleviating factors, resolved on its own??each episode lasting for about 15 minutes. ? Patient also endorsed chronic dry cough and denied any change in the frequency or pattern of cough.?? Patient also has history of migraine and complaining of??headache??in the occipital area that is radiating to??bilateral parietal area. ??Patient reports that??she usually takes Dilaudid or oxycodonefor her headache. ? The patient denied any fever, chills, weakness, numbness, tingling,??chest, frequency, flank pain,??or, constipation Review of Systems All pertinent negative and positives are noted in HPI. ??All other systems were reviewed and are negative. Objective ? Vital Signs?? Temperature: 97.6 DegF (01/16/22 17:16:00) Temperature Route: Oral (01/16/22 17:16:00) Pulse Rate:??95 bpm??High (01/16/22 20:10:00) Respiratory Rate: 24 br/min (01/16/22 20:10:00) Systolic Blood Pressure:??169 mm Hg??High (01/16/22 20:10:00) Diastolic Blood Pressure:??91 mm Hg??High (01/16/22:10:00) Blood pressure sites: Arm, left (01/16/22:10:00) Pulse Pressure: 78 mm Hg (01/16/22 20:10:00) Oxygen Saturation: 99 % (01/16/22:10:00) Liters per Minute: 2 L/min (01/16/22 20:10:00) Mode of Delivery (Oxygen): Room air (01/16/22 20:10:00) Early Warning Score: 4 (01/16/22:11:03) ? Physical Exam Constitutional: Alert, in no acute distress. Head: Normocephalic. ?? Eyes: Patient is legally blind, no scleral icterus bilaterally ?? Ear, Nose and Throat: mucous membranes moist. Ears and nose - no obvious deformities. Trachea midline. ?? Neck: Supple, Full range of motion.No JVD or bruits. Respiratory:??Bilateral crackles, no wheezing, no rhonchi,??breath sounds equal bilaterally Cardiovascular:??PMI not visible. S1 S2 regular. ??Grade 2 systolic murmur,??no S3 Gastrointestinal:??Abdomen soft, non-tender, non-distended. Normal bowel sounds. No pulsatile mass.No hepatosplenomegaly. Genitourinary:??No costovertebral angle tenderness. Extremities:??2+ lower extremity pitting edema. No cyanosis or clubbing. Neurologic:??AAOx3, Speech normal, no facial droop. No focal neurological deficits. Moves all extremities spontaneously. Sensation intact bilaterally.??Flexor plantar response Skin:??No rash.?? Musculoskeletal:??No gross deformities on inspection. Normal range of motion in hips, knees, ankles.? .??Muscle strength within normal limits Heme/Lymphatics:??Palpation of neck reveals no swelling or tenderness of neck nodes.?? Psychiatric: Normal mood and affect. Assessment/Plan Diagnoses 1. ??Acute on chronic systolic congestive heart failure ??(I50.23) 2. ??Elevated troponin ??(R77.8) 3. ??Insulin dependent type 2 diabetes mellitus ??(E11.9) 4. ??CKD stage 4 due to type 2 diabetes mellitus ??(E11.22) 5. ??Migraine ??(G43.909) 6. ??Hypertension ??(I10) 7. ??H/O Chest pain ??(R07.9) ?? Assessment:??Patient is a 31-year-old female who presented to ER with a chief complaint shortness of breath. Patient was found to have CHF exacerbation. Therefore, she was??admitted for further management. ?? Acute on chronic systolic congestive heart failure (I50.23):??Etiology: Unclear NYHA III, AHA C Of breath upon exertion and at rest, lower extremity swelling orthopnea, PND,??not on Lasix at home, ran out of her medication??4 days ago BNP 22, 602 Chest x-ray did not show any acute pathology, bedside ultrasound showed bilateral??edema In ER, patient was given 1 dose of IV Lasix 20 mg Started on IV Lasix 20 mg twice daily, resume home medication Coreg Daily weights, input/output Echo ordered Cardiology??consulted, will follow the recommendations ?? Elevated troponin (R77.8):??Etiology: Likely due to??CHF exacerbation versus??possible ACS Trop 81-->76 Patient did present with shortness of breath with a troponin, pending and also??intermittent chest pain for??1 month EKG done in the ER showed no acute ischemic changes,??EKG not available in [facility]USE Echo ordered Trend troponin Further management as above ?? Insulin dependent type 2 diabetes mellitus (E11.9):??Started??sliding scale??insulin and resume home dose of insulin Levemir ?? CKD stage 4 due to type 2 diabetes mellitus (E11.22):??Creatinine and GFR is at baseline Continue to monitor ?? Migraine (G43.509):??Patient had history of migraine but takes oxycodone or Dilaudid at home, not on any migraine medication Started on oxycodone??5 mg??every 6 hours as needed We will continue to monitor ?? Hypertension (I10):??Him home medication Coreg, hydralazine and nifedipine ?? Chronic anemia Hgb??stable and at baseline ?? VTE Prophylaxis:??Heparin ?VTE Prophylaxis Assessment:??VTE Prophylaxis Ordered ?? Code Status:??FULL CODE ?Order Code Status:??Code Status Ordered ?? Ongoing Medical Necessity:??CHF, ELEVATED Troponin ?? Discharge Planning:??Penidng clinical course ? Med Rec: Patient does not know her home medication, med rec was done based on last??admission,?? and discharge summary,??there might be some discrepancies??in med rec Histories Allergies Allergies ?(Active and Proposed Allergies [...] disease during , antepartum Care Coordination [facility], Hakan Angel, CC CKD (chronic kidney disease), stage III CKD stage 4 due to type 2 diabetes mellitus Depression Diabetes mellitus type 2 growth retardation, H/O Chest pain Heart failure with preserved ejection fraction, NYHA class I Hypertension Insulin dependent type 2 diabetes mellitus IUFD at 20 weeks or more of gestation Migraine Obese class I ? Past Surgical History delivery only;: 12/09/21 [...] every 4 to 6 hours as needed Amlodipine (amLODIPine 5 mg oral tablet)?1?tab(s)?5?Milligram?By Mouth?Daily Carvedilol (Coreg 25 mg oral tablet)?25?Milligram?1?tablet?By Mouth?2 times a day Docusate (Colace sodium [...] 1 Diabetes Mellitus Durable Medical Equipment (Pen [place], 30 G x 8 mm BD Ultra [...] ??Type 2 Diabetes Mellitus complicated by blindness hydrALAZINE (hydrALAZINE 50 mg oral tablet)?1?tab(s)?50?Milligram?By Mouth?3 times a day Insulin Detemir (Levemir FlexTouch 100 units/mL subcutaneous solution)?See Instructions?INJECT 8 UNITS SUBCUTANEOUSLY AT BEDTIME FOR 30 DAYS Insulin Lispro (Humalog Kwik Pen)?See Instructions?8 units with breakfast; 10 units with lunch; 26 units with dinner. ??Subcutaneous injection daily. Miscellaneous Rx (FREESTYLE LITE LANCETS)?See Instructions?GLUCOSE MONITORING 4 TIMES A DAY DURING Miscellaneous Rx (FREESTYLE LITE STRIPS)?See Instructions?GLUCOSE MONITORING 4 TIMES PER DAY DURING THE Miscellaneous Rx (FREESTYLE LITE GLUCOSE METER)?See Instructions?FOR GLUCOSE MONITORING DURING THE NIFEdipine (NIFEdipine (Eqv-Procardia XL) 90 mg oral tablet, extended release)?1?tab(s)?90?Milligram?By Mouth?Daily Oxycodone (oxyCODONE 5 mg oral tablet)?5?Milligram?1?tablet?By Mouth?Every 6 hours?as needed?for severe post-operative pain?as needed for pain ? Results Recent Labs BLOOD COUNT & DIFF WBC 5.9 k/mm3 ()?? 01/16/2022 13:24 RBC 2.80 m/mm3 (Low)?? 01/16/2022 13:24 Hgb 8.0 Gm/dL (Low)?? 01/16/2022 13:24 Hct 25.4 % (Low)?? 01/16/2022 13:24 MCV 90.7 femtoliters ()?? 01/16/2022 13:24 MCH 28.6 pg ()?? 01/16/2022 13:24 MCHC 31.5 g/dL (Low)?? 01/16/2022 13:24 Platelet Count 233 k/mm3 ()?? 01/16/2022 13:24 RDW-SD 43.8 femtoliters ()?? 01/16/2022 13:24 MPV 11.6 femtoliters ()?? 01/16/2022 13:24 Nucleated RBC (Automated) 0.0 #/100 WBC'S ()?? 01/16/2022 13:24 Abs. NRBC 0.0 k/mm3 ()?? 01/16/2022 13:24 Abs. Neut 4.5 k/mm3 ()?? 01/16/2022 13:24 Abs. Lymph 0.9 k/mm3 ()?? 01/16/2022 13:24 Abs. Hand 0.4 k/mm3 ()?? 01/16/2022 13:24 Abs. Eo 0.1 k/mm3 ()?? 01/16/2022 13:24 Abs. Baso 0.0 k/mm3 ()?? 01/16/2022 13:24 Neut % 75.9 % ()?? 01/16/2022 13:24 Lymph % 14.5 % (Low)?? 01/16/2022 13:24 Hand % 6.9 % ()?? 01/16/2022 13:24 Eos % 1.7 % ()?? 01/16/2022 13:24 Baso % 0.3 % ()?? 01/16/2022 13:24 Imm Gran 0.7 % ()?? 01/16/2022 13:24 Abs. Imm Gran 0.0 k/mm3 ()?? 01/16/2022 13:24 ?? CARDIAC Nt-Probnp 00330 pg/mL (High)?? 01/16/2022 13:24 High Sensitivity Troponin (HSTnT) 76 ng/L (Critical)?? 01/16/2022 16:17 ?? CHEM GENERAL Sodium 139 mmol/L ()?? 01/16/2022 13:24 Potassium 4.8 mmol/L ()?? 01/16/2022 13:24 Chloride 111 mmol/L (High)?? 01/16/2022 13:24 Bicarbonate Level 17 mmol/L (Low)?? 01/16/2022 13:24 Anion Gap 11 ()?? 01/16/2022 13:24 Glucose Level 173 mg/dL (High)?? 01/16/2022 13:24 Glucose, POC 113 mg/dL (High)?? 01/16/2022 18:24 BUN 37 mg/dL (High)?? 01/16/2022 13:24 Creatinine-Blood 3.1 mg/dL (High)?? 01/16/2022 13:24 Estimated GFR Creatinine 20 ML/MIN/1.73 M2 ()?? 01/16/2022 13:24 Calcium 8.0 mg/dL (Low)?? 01/16/2022 13:24 ?? HEME OTHER Hold Blue Top SPECIMEN DISCARDED AFTER 4 HOURS. ()?? 01/16/2022 13:24 ?? VIROLOGY Influenza A PCR NEGATIVE ()?? 01/16/2022 14:32 Influenza B PCR NEGATIVE ()?? 01/16/2022 14:32 RSV PCR NEGATIVE ()?? 01/16/2022 14:32 COVID-19 PCR Specimen Source NASAL ()?? 01/16/2022 14:32 COVID-19 PCR Result NEGATIVE ()?? 01/16/2022 14:32 ? Coagulation Profile?? No qualifying data available. ?? 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 Also. ??Patient complaining of pain in her lower EXTR more on the right side??and headache, patient reported that??her pain resolved after IV Dilaudid. Patient has intact pulses in right lower extremities, patient also reported that she has Doppler done at [facility]??recently and that was negative for DVT As per patient, she was on p.o. Dilaudid and p.o. oxycodone at home but she ran out of those pills??and she will not get this refill until she sees her doctor,??will give 1 more dose of IV Dilaudid andchange p.o. oxycodone to p.o. Dilaudid EKG study Event Display: EKG Authored Date: Event Display: ECG 12-Lead Authored Date: Please click on pdf link to open report Event Display: ECG 12-Lead Authored Date: Ventricular Rate: 105 BPM Atrial Rate: 105 BPM P-R Interval: 152 ms QRS Duration: 126 ms Q-T Interval: 388 ms QTC Calculation([place]ett): 512 ms P [place]: 66 degrees R [place]: 33 degrees T [place]: 76 degrees Sinus tachycardia Possible Left atrial enlargement Right bundle branch block Abnormal ECG When compared with ECG of 07-DEC-2021 23:11, No significant change was found Confirmed by FABIAN WHITTINGTON MD ([id number]) on 01/18/2022 9:10:46 AM [place]: FABIAN WHITTINGTON MD Note Jose Callejas RN: PERFORM Event Display: Discharge/Transfer Note Hospital Authored Date: Nursing Discharge Note Entered On: 01/19/2022 15:10 EST Performed On: 01/19/2022 15:10 EST by Jose Callejas RN Nursing Discharge Note 2 Discharge Time : 01/19/2022 15:10 EST Discharge Level of Care at Discharge : Home/Prison/Foster Care Patient Left Unit Via : Wheelchair Patient Accompanied Off Unit with : Responsible adult DC Instructions Provided & Signed by Pt : Yes Patient Understands D/C Instructions : Yes Patient Instructions Discharge Signed : Yes Did Pt have Specialty Bed or Wound Vac : No Jose Callejas RN - 01/19/2022 15:10 Inna Vargas MD: PERFORM Event Display: Discharge/Transfer Note Hospital Authored Date: [id number] Patient: ??SHEREEN TAYLOR ? Age:??31 Years?Sex:??Female?:??1990?? Patient Information Discharge Location: 7 Primary Care Physician: Abdon Beard MD Admit Date/Time: 01/16/22 16:22 Discharge Disposition Discharge Disposition: Home: No Services Discharge Diagnosis Acute on chronic systolic congestive heart failure (I50.23) Elevated troponin (R77.8) Insulin dependent type 2 diabetes mellitus (E11.9) CKD stage 4 due to type 2 diabetes mellitus (E11.22) Migraine (G43.909) Hypertension (I10) H/O Chest pain (R07.9) ?? _ Discharge Medications Albuterol (ProAir HFA [...] 1 Diabetes Mellitus Durable Medical Equipment (Pen [place], 30 G x 8 mm BD Ultra [...] hydrALAZINE (hydrALAZINE 50 mg oral tablet)?1?tab(s)?50?Milligram?By Mouth?3 timesa day Insulin Detemir (Levemir FlexTouch 100 units/mL subcutaneous solution)?See Instructions?INJECT8 UNITS SUBCUTANEOUSLY AT BEDTIME FOR 30 DAYS [...] METER)?See Instructions?FOR GLUCOSE MONITORING DURINGTHE NIFEdipine (NIFEdipine (Eqv-Procardia XL) 90 mg oral tablet, extended release)?1?tab(s)?90?Milligram?By Mouth?Daily Oxycodone (oxyCODONE 5 mg oral tablet)?5?Milligram?1?tablet?By Mouth?Every 6 hours?as needed?for severe post-operative pain?as needed for pain Rosuvastatin (Crestor 5 mg oral tablet)?1?tab(s)?5?Milligram?By Mouth?Daily ? Medications Started Metoprolol (metoprolol 100 mg oral tablet, extended release)?200?Milligram?2?tablet?By Mouth?Daily Lisinopril (lisinopril 10 mg oral tablet)?10?Milligram?1?tablet?By Mouth?Daily Rosuvastatin (Crestor 5 mg oral tablet)?1?tab(s)?5?Milligram?By Mouth?Daily ?? Medications Discontinued carvedilol??50 mg twice daily Doses Changed Furosemide (Lasix 40 mg oral tablet)?40?Milligram?1?tablet?By Mouth?2 times a day Allergies Allergies ?(Active and Proposed Allergies Only) morphine? (Severity: Unknown severity, Onset: Unknown) ?Reactions: Itching Zosyn? (Severity: Severe, Onset: Unknown) ?Reactions: angioedema ?Comments: Tolerates cefazolin vancomycin? (Severity: Unknown severity, Onset: Unknown) ?Reactions: Tightness in throat ?Comments: Tolerates again 05/21 ?Comments: Per chart: pt tolerated vanco on 05/18/21 ? PCP Follow-Up/Heads-Up Patient's dose of lasix was increased to 40mg BID ??- Please obtain a BMP in 1 week ?? Patient has chronic anemia. Hemoglobin 7.5 on this admission ?? - Please obtain CBC in 1 week ?? Patient is on oxycodone 5mg q6H??for post operative pain. She has been taking this for head and backpain at home. However she states that it makes her nauseous ?? There is concern that the patient is depressed, please consider a outpatient psychiatric evaluation ?? Please consider weening patient off of opiate medications given no organic cause of chronic pain hasbeen found ?? Future Appointments 2021 2:00 PM EST ?? With: Nena CARLSON, Babak Javier Where: Specialty [facility] [place] [address]- Hospital Course ??Ms. Shereen Taylor is a??31-year-old??woman with past medical history of nonischemic cardiomyopathy (regadenoson stress test in February 2021 was normal with no defects), heart failure with mid range ejection fraction last echo done in November 2021 showed an EF of 40-45% from 35 to 40% in October 2021 this is her baseline since February 2021, mild global hypokinesis with regional variation, mildMR), Chronic normocytic anemia, CKD stage IV with baseline creatinine 3-4,?? insulin dependent type??2 diabetes with A1c 5.5 in October 2021, History of preeclampsia (urgent on forsevere preeclampsia with demise) presented to the hospital for shortness of breath and was treated for a heart failure exacerbation. She presented to the ED on 01/16 for the SOB. Patient had not been taking lasix at home (conflicting reports of OBGYN stopping medication vs not taking medication due to frequent urination).??Labs were remarkable for anemia, elevated troponin and elevated??proBNP,and creating of 3.1 (at base line, increasing over last year).??Repeat??troponin ruled out myocardial injury. Patient was treated with IV lasix until she approached euvolemia and then was transitioned to po lasix. Cardilolgy was consulted who did not feel that she needed a repeat echo for heart failure in the setting of medication non-compliance. Cardiology made recommendations to change patients antihypertensives for better blood pressure control. Social work was consulted for support for the patient, however she stated that she has no difficulty obtaining her medications and declined speaking to a therapist in patient. ?? Patient also had head, neck, back, chest, and leg pain through out her stay. Repeat EKGs were reassuring for no ischemic changes. She was refusing oral oxycodone (on at home) and Tylenol because she stated that made her nauseous. She also declined antiemetics. She was given a few doses of IV Dilaudid to control pain in addition to lidocaine patched and heating packs. Patient was discharged on home dose of oxycodone with no additional prescriptions for opiates. There is some concern for depressive symptoms in this patient given complex medical history and recent pregancy loss. ?? Acute on chronic systolic congestive heart failure Nonischemic cardiomyopathy (regadenoson stress test in February 2021 was normal with no defects) Heart failure with??midrange ejection fraction??(November 2021 showed an EF of 40-45% from 35 to 40% in October 2021 this is her baseline since February 2021, mild global hypokinesis with regional variation, mild MR) Hypertension Acute heart failure exacerbation is secondary to medication??noncompliance since patient ran out of her medication vs not taking meds vs medications stopped by OBGYN high-sensitivity troponin ruled out ACS Seen by [facility] ?? Recommendations: -Lasix 40 mg twice daily -metoprolol 200 mg XL daily -??nifedipine 90 mg extended release daily -??hydralazine 50 mg 3 times daily - lisinopril??10 mg daily - rosuvastatin??5 mg daily - Please obtain BMP in 1 week - Follow up scheduled at [facility] heart failure clinic February 09 ?? Chronic normocytic anemia Hemoglobin 7.5 during admission? Recommendations Please obtain CBC in 1 week ?? CKD stage 4 due to type 2 diabetes mellitus (E11.22):?? Creatinine 3.3 on 01/18 Baseline has been trending upward in last year Increase in creatine thought to be due to cardiorenal syndrome ?? Recommendations Please obtain BMP in 1 week ?? Back Pain Migraine Neck Pain Leg pain Chest Pain Patient had history of migraine but takes oxycodone??5mg q6H at home?? Repeat EKGs reassuring Neuro exam reassuring, recent MRI in November showed No acute intracranial pathology. Persistent mild bilateral white matter disease and abnormal signal in the camilla. The exam etiology is uncertain. Differential diagnosis diagnosis are extensive including demyelinating disease, chronic small vessel ischemic changes, infectious or inflammatory processes, post-traumatic changes. Hyperintense FLAIR signals within the posterior aspects of bilateral globes are noted, new on the right. Please correlate with ophthalmology evaluation and MRA showed no blood clots Started on oxycodone??5 mg??every 6 hours as needed by PCP ?? Recommendations: Scheduled Tylenol 975 mg Oxycodone 5mg q6H as prescribed by PCP, please consider weening patient off of opiates given that noorganic cause of pain has been found to date ? Chronic Medical??Conditions Insulin dependent type 2 diabetes mellitus: sliding scale??insulin and resume home dose of insulin Levemir ?? Objective Vital Signs?? Temperature: 98.6 DegF (01/19/22 08:55:00) Temperature Route: Oral (01/19/22 08:55:00) Pulse Rate: 79 bpm (01/19/22 08:55:00) Respiratory Rate: 18 br/min (01/19/22 08:55:00) Systolic Blood Pressure: 134 mm Hg (01/19/22 08:55:00) Diastolic Blood Pressure: 82 mm Hg (01/19/22 08:55:00) Blood pressure sites: Arm, left (01/19/22 08:55:00) Mean Arterial Pressure: 99 mm Hg (01/19/22 08:55:00) Pulse Pressure: 52 mm Hg (01/19/22 08:55:00) Oxygen Saturation: 98 % (01/19/22 08:55:00) Mode of Delivery (Oxygen): Room air (01/19/22 08:55:00) Early Warning Score: 0 (01/19/22 08:55:55) ? . Physical Exam Vital Signs (24 hrs) Last Charted?? Minimum?? Maximum?? Resp Rate?? 18?? 01/19/2022 08:55?? 18?? 01/18/2022 16:44 ?? 20?? 01/18/2022 23:59?? SBP?? 134?? 01/19/2022 08:55?? 101?? 01/18/2022 16:44 ?? 134?? 01/19/2022 08:55?? DBP?? 82?? 01/19/2022 08:55?? 57?? 01/18/2022 17:47 ?? 82?? 01/19/2022 08:55? General Appearance: The patient is in NAD. Eyes: EOMI. SHELBY. No scleral icterus. ENT: ??MM moist. Cardiovascular: RRR S1 and S2 heard with no M/R/G. JVD at the level of the clavicle. Respiratory: ??Breath sounds clear to auscultation bilaterally. No wheezing. Good air movement throughout both lungs. GI: Soft. Nontender and nondistended. Normal bowel sounds present throughout abdomen. ??No rebound tenderness or other findings suggestive of an acute abdomen.?? MS:?+1 pretibial pitting edema of the LE bilaterally.?No erythema in the lower extremities. Nowounds seen on the feet. 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 Skin:??No rashes seen on chest, abdomen, or back. ? Neuro: ??No slurred speech. No focal neurologic deficits Psych: Alert and oriented x3. Appropriate and pleasant. ?? Follow-Up Appointments Added Follow Up ?Time Frame ?Comments Abdon Beard?1-2 day: call to discuss follow up visit?Please call your primary care doctor to discuss a follow up appointment for your recenthospitalization. Patient Instructions You were diagnosed with a heart failure exacerbation. You were treated with diuretics in the hospital to help reduce the amount of extra fluid in your body and help your heart pump effectively. ?? It is important that you take all of your medications prescribed to you at home. Please continue to follow your diet closely to limit the amount of daily sodium. ?? You have a follow up appointment scheduled with Cardiology, Dr. Barrett on 02/09 at 2pm. ?? Please call your primary care provider to schedule a follow up appointment. Please obtain blood workin 1 week from your discharge to evaluate your electrolytes. ?? If you have difficulty breathing, chest pain, dizziness, leg swelling or any other symptoms that areconcerning to you, please call your primary care doctor or return to the hospital.?? Results Discharge Labs BLOOD COUNT & DIFF WBC 5.0 k/mm3 ()?? 01/18/2022 01:32 RBC 2.61 m/mm3 (Low)?? 01/18/2022 01:32 Hgb 7.5 Gm/dL (Low)?? 01/18/2022 01:32 Hct 23.8 % (Low)?? 01/18/2022 01:32 MCV 91.2 femtoliters ()?? 01/18/2022 01:32 MCH 28.7 pg ()?? 01/18/2022 01:32 MCHC 31.5 g/dL (Low)?? 01/18/2022 01:32 Platelet Count 202 k/mm3 ()?? 01/18/2022 01:32 RDW-SD 44.0 femtoliters ()?? 01/18/2022 01:32 MPV 12.0 femtoliters ()?? 01/18/2022 01:32 Nucleated RBC (Automated) 0.0 #/100 WBC'S ()?? 01/18/2022 01:32 Abs. NRBC 0.0 k/mm3 ()?? 01/18/2022 01:32 Abs. Neut 4.5 k/mm3 ()?? 01/16/2022 13:24 Abs. Lymph 0.9 k/mm3 ()?? 01/16/2022 13:24 Abs. Hand 0.4 k/mm3 ()?? 01/16/2022 13:24 Abs. Eo 0.1 k/mm3 ()?? 01/16/2022 13:24 Abs. Baso 0.0 k/mm3 ()?? 01/16/2022 13:24 Neut % 75.9 % ()?? 01/16/2022 13:24 Lymph % 14.5 % (Low)?? 01/16/2022 13:24 Hand % 6.9 % ()?? 01/16/2022 13:24 Eos % 1.7 % ()?? 01/16/2022 13:24 Baso % 0.3 % ()?? 01/16/2022 13:24 Imm Gran 0.7 % ()?? 01/16/2022 13:24 Abs. Imm Gran 0.0 k/mm3 ()?? 01/16/2022 13:24 ?? CARDIAC Nt-Probnp 37343 pg/mL (High)?? 01/16/2022 13:24 High Sensitivity Troponin (HSTnT) 80 ng/L (Critical)?? 01/16/2022 19:26 ?? CHEM GENERAL Sodium 138 mmol/L ()?? 01/18/2022 01:32 Potassium 4.6 mmol/L ()?? 01/18/2022 01:32 Chloride 109 mmol/L (High)?? 01/18/2022 01:32 Bicarbonate Level 20 mmol/L (Low)?? 01/18/2022 01:32 Anion Gap 9 ()?? 01/18/2022 01:32 Glucose Level 82 mg/dL ()?? 01/18/2022 01:32 Glucose, POC 104 mg/dL (High)?? 01/19/2022 07:31 BUN 39 mg/dL (High)?? 01/18/2022 01:32 Creatinine-Blood 3.3 mg/dL (High)?? 01/18/2022 01:32 Estimated GFR Creatinine 19 ML/MIN/1.73 M2 ()?? 01/18/2022 01:32 Calcium 8.4 mg/dL (Low)?? 01/18/2022 01:32 Phosphorus 4.9 mg/dL (High)?? 01/17/2022 07:20 Magnesium 1.9 mg/dL ()?? 01/18/2022 01:32 ? HEME OTHER Hold Blue Top SPECIMEN DISCARDED AFTER 4 HOURS. ()?? 01/16/2022 13:24 ? MISC. CHEMISTRY Hold Gel Top SPECIMEN DISCARDED AFTER 1 WEEK ()?? 01/17/2022 07:20 ? VIROLOGY Influenza A PCR NEGATIVE ()?? 01/16/2022 14:32 Influenza B PCR NEGATIVE ()?? 01/16/2022 14:32 RSV PCR NEGATIVE ()?? 01/16/2022 14:32 COVID-19 PCR Specimen Source NASAL ()?? 01/16/2022 14:32 COVID-19 PCR Result NEGATIVE ()?? 01/16/2022 14:32 ? Microbiology ?? COVID-19, RSV, and Flu A/B, Rapid PCR?? Completed?? Source: Nasal Body Site: Nose Collected Dt/Tm: 01/16/2022 13:08 Last Updated Dt/Tm: 01/16/2022 19:17 ? Imaging(s) ?CT Head/Brain W/O Contrast ?? 01/17/2022 02:28??by Alma Holland MD ?T Head/Brain W/O Contrast ?? Reason: Headache(s); Clinical Question(s): Subarachnoid Hemorrhage; ?? TECHNIQUE: Noncontrast head CT using axial technique and reconstructed in axial and coronal planes. Weight-based protocol using automatic tube modulation was used to optimize exposure parameters. ?? CTDIvol Head: 45.80 mGy, DLP Head: 773 mGy*cm. ?? COMPARISON: CT head 11/27/2021. MRI brain and MRA head 12/02/2021 ?? FINDINGS: ?? BRAIN and EXTRA-AXIAL SPACES: No parenchymal hemorrhage, midline shift or mass effect. Ventura-white matter differentiation is well preserved. No acute infarct. Negative insular ribbon and hyperdense vessel signs. ?? Ventricles, sulci and basilar cisterns are normal. ?? No white matter lesions. ?? No subarachnoid hemorrhage, subdural or epidural collections. ?? CALVARIUM, SKULL BASE AND SOFT TISSUES: No fractures or suspicious bony lesions. ?? The paranasal sinuses and mastoid air cells are clear. ?? Visualized orbits and globes are intact. ?? The extracranial soft tissues are unremarkable. ?Chest 2 Views Frontal and Lat ?? 01/16/2022 13:19??by Adia Cabello MD ?Examination: Chest performed on 01/16/2022. ?? History: Chest pain. ?? Findings: ?? Frontal and lateral views of the chest are compared to a prior study dated 11/27/2021. ?? The cardiac and mediastinal silhouettes are within normal limits. The lungs are clear. The osseous and soft tissue structures are unremarkable. ?? Impression: ?? There is no acute cardiopulmonary disease. ? Inna Linn MD [facility]- PGY1 Pager #[phone] ?? Patient was seen and discussed with ??Edwin ? 30??minutes spent on discharge Mariann Pineda MD: PERFORM Event Display: Discharge/Transfer Note Hospital Authored Date: Attending Attestation:??I have seen and evaluated this patient. ??I have discussed the case and its management with the resident and agree with the findings and plan as documented in the resident???s note. Júnior BETH, Jose: PERFORM, MODIFY, MODIFY Event Display: Patient Education/Instruction Authored Date: [id number] Inpatient Adult Discharge Instructions [address] [address] Name: SHEREEN TAYLOR : 1990 Visit: 01/16/2022 16:22:00 Current Date: 01/19/2022 14:33 Account: [id number] Inpatient Adult Discharge Instructions We would like [...] and their families. Surveys are administered by [employer] ?? If further treatment with your primary care physician or another doctor is recommended, it is important for you to keep the appointment. Call your primary care physician or return to the Emergency Department immediately if your condition worsens, fails to improve, or new symptoms develop. If you need to find a doctor, you can call [facility] for a referral at [phone] or toll free at [phone] or log in to [email or web address].. ?? You can view and manage your care through the patient portal or by using a health care calos of your choosing. [employer] is a website that allows you to [...] office visit. You have been discharged from [facility], Patient Care Unit: M7. If you have any questions regarding these instructions after you leave, please call us and we will be happy to assist you. [facility] Your Care Team Attending Physician Mariann Pineda MD Consulting Providers Karen Casillas Reason for Admission CP x3 days, reporting SOB. having to sleep sitting up. EF 40%, edema present. Your Diagnosis Acute on chronic systolic congestive heart failure Elevated troponin Insulin dependent type 2 diabetes mellitus CKD stage 4 due to type 2 diabetes mellitus Migraine Hypertension H/O Chest pain Tests Performed Below is a partial list of the tests performed during your hospitalization. You may have had other tests and procedures not included in this list. Please discuss all test results with your provider. B Type Natriuretic Peptide BUN Calcium Level CBC w/ Differential COVID-19, RSV, and Flu A/B, Rapid PCR Creatinine Electrolytes Glucose Level GLUCOSE POC High??Sensitivity??Troponin T Hold Blue Top Tube HOLD GEL TUBE Mg Level Phosphorus Level Troponin T, High Sensitivity CT Head/Brain W/O Contrast XR Chest 2 Views Frontal and Lat Primary Care Provider Leonel Beard MDshaista Advance Directive Health Care Proxy on File Yes - Health Care Proxy No qualifying data available. Discharge Vitals Temperature: 98.6 DegF Height: 160 cm Pulse Rate: 79 bpm Weight: 95.2 kg Respiratory Rate: 18 br/min Body Mass Index:??36.76 kg/m2??Critical Systolic Blood Pressure: 134 mm Hg Body surface area: 2.05 Diastolic Blood Pressure: 82 mm Hg ?? Oxygen Saturation: 98 % ?? Studies Pending All tests and labs ordered during this hospital stay have been completed unless listed below. Pleasediscuss all pending results with your provider listed above in these instructions. ?? Basic Metabolic Panel CBC COVID-19 (2019 Novel Coronavirus) PCR Hold Lavender Tube (BB) Magnesium Level What to do next Instructions From Your Doctor You were diagnosed with a heart failure exacerbation. You were treated with diuretics in the hospital to help reduce the amount of extra fluid in your body and help your heart pump effectively. ?? It is important that you take all of your medications prescribed to you at home. Please continue to follow your diet closely to limit the amount of daily sodium. ?? You have a follow up appointment scheduled with Cardiology, Dr. Barrett on 02/09 at 2pm. ?? Please call your primary care provider to schedule a follow up appointment. Please obtain blood workin 1 week from your discharge to evaluate your electrolytes. ?? If you have difficulty breathing, chest pain, dizziness, leg swelling or any other symptoms that areconcerning to you, please call your primary care doctor or return to the hospital.?? Discharge Orders Scheduled Follow-Up Appointments 2021 2:00 PM EST ?? With: Nena CARLSON, Babak Javier Where: [facility] [place] [address]- You Need to Schedule the Following Appointments Follow Up with??Abdon Beard When??Within 1-2 day: call to discuss follow up visit Why: Please call your primary care doctor to discuss a follow up appointment for your recent hospitalization. Where: [address] [place] [phone] (1) Discharge Medications RANGEL SHEREEN :1990 Visit Date:01/16/2022 Medications: Please continue your medications until treatment is completed or stopped by your provider. Medications not listed below should be discontinued. Discuss any questions related to medications with your provider. What How Much When Why Instructions Next Dose New Furosemide (Lasix 40 mg oral tablet) 1 tab(s) Oral Twice a day Pickup at [facility]/pharmacy #[id number] [facility] 01/19 New Lisinopril (lisinopril 10 mg oral tablet) 1 tab(s) Oral Daily Pickup at [facility]/pharmacy #[id number] today??01/19 New Metoprolol (metoprolol 100 mg oral tablet, extended release) 2 tab(s) Oral Daily Pickup at [facility]/pharmacy #[id number] today 01/19 New Rosuvastatin (Crestor 5 mg oral tablet) 1 tab(s) Oral Daily Pickup at [facility]/pharmacy #[id number] [facility] 01/19 Changed NIFEdipine (NIFEdipine (Eqv-Procardia XL) 90 mg oral tablet, extended release) 1 tab(s) Oral Daily today 01/19 Changed hydrALAZINE (hydrALAZINE 50 mg oral tablet) 1 tab(s) Oral 3 times a day this afternoon 01/19 Unchanged Albuterol (ProAir HFA 90 mcg/ inh [...] 200. ?? Unchanged Durable Medical Equipment (Pen [place], 30 G x 8 mm BD Ultra Fine II) See instructions Duration: 90 Days use as directed for Type 2 Diabetes Mellitus ?? Unchanged Insulin Detemir (Levemir FlexTouch 100 units/ mL subcutaneous solution) See instructions INJECT 8 UNITS SUBCUTANEOUSLY AT BEDTIME FOR 30 DAYS ?? bedtime 01/19 Unchanged Insulin Lispro (Humalog Kwik Pen) See instructions 8 units with breakfast; 10 units with lunch; 26 units with dinner. ??Subcutaneous injection daily. ?? tonight with dinner 01/19 Unchanged Miscellaneous Rx (FREESTYLE LITE GLUCOSE METER) [...] TIMES PER DAY DURING THE ?? Unchanged Oxycodone (oxyCODONE 5 mg oral tablet) 1 tab(s) Oral Every 6 hours as needed for as needed for pain for severe post-operative pain ?? as needed Pharmacy Information [facility]/pharmacy #[id number]: [address], [place] [phone] ?? What How Much When Comments Stop Taking Acetaminophen (Tylenol Extra Strength 500 mg oral tablet) 2 tab(s) Oral Every 4 hours as needed for for pain Stop Taking Amlodipine (amLODIPine 5 mg oral tablet) 1 tab(s) Oral Daily Stop Taking Carvedilol (carvedilol 12.5 mg oral tablet) 1 tab(s) Oral Twice a day Stop Taking Carvedilol (Coreg 25 mg oral tablet) 1 tab(s) Oral Twice a day Stop Taking Carvedilol (Coreg 25 mg oral tablet) 2 tab(s) Oral Twice a day Stop Taking Simethicone (simethicone 80 mg oral tablet, chewable) 1 tab(s) Chew 4 times a day as needed for as needed for gas Test Results Below is a partial list of the most recent Laboratory test results done prior to this discharge. You may have had other tests and procedures not included in this list. Please discuss all test results with your provider. B Type Natriuretic Peptide (01/16/2022) ???Nt-Probnp - 60621 pg/mL BUN (01/18/2022) ???BUN - 39 mg/dL Calcium Level (01/18/2022) ???Calcium - 8.4 mg/dL CBC w/ Differential (01/16/2022) ???WBC - 5.9 k/mm3???RBC - 2.80 m/mm3???Hgb - 8.0 Gm/dL???Hct - 25.4 %???MCV - 90.7 femtoliters???MCH - 28.6 pg???MCHC - 31.5 g/dL???Platelet Count - 233 k/mm3???RDW-SD - 43.8 femtoliters???MPV - 11.6 femtoliters???Nucleated RBC (Automated) - 0.0 #/100 WBC'S???Abs. NRBC - 0.0 k/mm3???Abs. Neut - 4.5 k/ mm3???Abs. Lymph - 0.9 k/mm3???Abs. Hand - 0.4 k/mm3???Abs. Eo - 0.1 k/mm3???Abs. Baso - 0.0 k/mm3???Neut % - 75.9 %???Lymph % - 14.5 %???Hand % - 6.9 %???Eos % - 1.7 %???Baso % - 0.3 %???Imm Gran - 0.7 %???Abs. Imm Gran - 0.0 k/mm3 COVID-19, RSV, and Flu A/B, Rapid PCR (01/16/2022) ???Influenza A PCR - NEGATIVE???Influenza B PCR - NEGATIVE???RSV PCR - NEGATIVE???COVID-19 PCR Specimen Source - NASAL???COVID-19 PCR Result - NEGATIVE Creatinine (01/18/2022) ???Creatinine-Blood - 3.3 mg/dL???Estimated GFR Creatinine - 19 ML/MIN/1.73 M2 Electrolytes (01/18/2022) ???Sodium - 138 mmol/L???Potassium - 4.6 mmol/L???Chloride - 109 mmol/L???Bicarbonate Level - 20 mmol/L???Anion Gap - 9 Glucose Level (01/18/2022) ???Glucose Level - 82 mg/dL GLUCOSE POC (01/19/2022) ???Glucose, POC - 104 mg/dL High??Sensitivity??Troponin T (01/16/2022) ???High Sensitivity Troponin (HSTnT) - 81 ng/L Hold Blue Top Tube (01/16/2022) ???Hold Blue Top - SPECIMEN DISCARDED AFTER 4 HOURS. HOLD GEL TUBE (01/17/2022) ???Hold Gel Top - SPECIMEN DISCARDED AFTER 1 WEEK Mg Level (01/18/2022) ???Magnesium - 1.9 mg/dL Phosphorus Level (01/17/2022) ???Phosphorus - 4.9 mg/dL Troponin T, High Sensitivity (01/16/2022) ???High Sensitivity Troponin (HSTnT) - 80 ng/L Immunizations This Visit Not Given Vaccine Commentsinfluenza virus vaccine, inactivated Patient Refuses Allergies (NKA means No Known Allergies) Zosyn??(angioedema) morphine??(Itching) vancomycin??(Tightness in throat) Problems Active Problems??(17) Asthma?? Blindness of right eye?? Cardiac disease during , antepartum?? Care Coordination [facility], [place] Angel, [facility] ?? CKD [...] Belongings I fully understand and agree that [facility] accepts no responsibility for all my [...] Review of Valuable and Belonging List: With witness Date for Pt to Sign Valuables/Belongings: 01/16/22 22:37:00 ?? Other Discharge Information ? Pulmonary Rehab [...] are strongly encouraged to quit. Please call [facility] at [phone] or [phone]) or log in to [email or web address] for referrals to smoking cessation programs. ?? The National Suicide Prevention Hotline is available 18/09 if you or someone you know needs to find areason to keep living. By calling 0-738-147TESARO (5769) you'll be connected to a skilled, trained counselor at a crisis center in your area. INPATIENT DISCHARGE INSTRUCTIONS SIGNATURE SHEREEN WATTS Location:[facility] Registration Date and Time:01/16/2022 16:22 [facility] Primary Care Physician: Chirag CARLSON, [facility], I RANGELARLETTEEDEN, have received the above patient education materials/instructions and have verbalized understanding. If ambulance or transport services are being used I further acknowledge being given a choice of service. ?? If you need to contact me, please call me at this number: . Patient/Water Resource Engineering Specialist Name: Patient/Water Resource Engineering Specialist Signature: Relationship to Patient: Witness Name/Signature: Date: Inna Linn MD F: PERFORM, SIGN, VERIFY Event Display: Patient Education Handout Authored Date: [id number] Jose Callejas RN: PERFORM Event Display: Patient Education Leaflets Authored Date: [id number] Rosuvastatin Oral Tablet ?? [address] Rosuvastatin Oral Tablet Brands: Crestor Uses To lower high fat levels in blood. ?? Instructions Swallow the medicine without crushing or chewing it. This medicine may be taken with or without food. Keep the medicine at room temperature. Avoid heat and direct light. Do not take this medicine with antacids. It is important that you keep taking [...] doses of this medicine at one time. Tell your doctor and pharmacist about all your medicines. Include prescription and pfwz-[id number], vitamins, and herbal medicines. It is very important that you follow your doctor's instructions for all blood tests. ?? Cautions Tell your doctor and pharmacist if you ever had an allergic reaction to a medicine. Do not use the medication any more than instructed. Please check with your doctor before drinking alcohol while on this medicine. Contact your doctor if you notice a change in the amount or darkening of your urine. Tell the doctor or pharmacist if you are , planning to be , or . Do not breastfeed while on this medicine. This medicine can pass through breast milk to the baby. During , this medicine should be used only when clearly needed. Talk to your doctor about the risks and benefits. Do not start or stop any other medicines without first speaking to your doctor or pharmacist. Do not share this medicine with anyone who has not been prescribed this medicine. ?? Side Effects Call your doctor or get medical help right away if you notice any of these more serious side effects: ??? lack of energy and tiredness ??? signs of liver damage (such as yellowing of eye or skin, dark urine, or unusual tiredness) ??? muscle pain ??? nausea ??? stomach upset or abdominal pain A few people may have an allergic reaction to this medicine. Symptoms can include difficulty breathing, skin rash, itching, swelling, or severe dizziness. If you notice any of these symptoms, seek medical help quickly. ?? Extra Please speak with your doctor, nurse, or pharmacist if you have any questions about this medicine. ?? [email or web address] IMPORTANT NOTE: This document tells you briefly how to take your medicine, but it does not tell youall there is to know about it. Your doctor or pharmacist may give you other documents about your medicine. Please talk to them if you have any questions. Always follow their advice. There is a more complete description of this medicine available in [place]. Scan this code on your smartphone or tablet or use the web address below. You can also ask your pharmacist for a printout. If you have any questions, please ask your pharmacist. The display and use of this drug information is subject to Terms of Use. Copyright(c) 2021 [employer]. ?? [employer]. All rights reserved. This information is not intended as a substitute for professional medical care. Always follow your healthcare professional's instructions. ??Jose Callejas RN: PERFORM Event Display: Patient Education Leaflets Authored Date: [id number] Lisinopril Oral Tablet ?? [id number] Lisinopril Oral Tablet Brands: Prinivil, Zestril Uses This medicine is used for the following purposes: ??? diabetic complications ??? heart attack ??? heart failure ??? high blood pressure ??? prevent migraine headaches ?? Instructions This medicine may be taken with or without food. It is very important that you take the medicine at about the same time every day. It will work bestif you do this. Keep the medicine at room temperature. Avoid heat and direct light. Talk to your doctor before eating foods with large amounts of potassium. Potassium is often found in salt substitutes. Your doctor may want you to reduce the amount of these foods. It is important that you keep taking [...] doses of this medicine at one time. Tell your doctor and pharmacist about all your medicines. Include prescription and irpa-mvj-ywmqsvrihebfycah, vitamins, and herbal medicines. ?? Cautions Tell your doctor and pharmacist [...] know how this medicine will affect you. Contact your doctor if you notice a change in the amount or darkening of your urine. Tell the doctor or pharmacist if you are , planning to be , or . This medicine can hurt a new baby in the womb. If you become while on this medicine, tell your doctor immediately. Your doctor may switch you to a different medicine. Do not start or stop any other [...] experience these or other side effects. ??? coughing ??? dizziness ??? lack of energy and tiredness ??? headaches Call your doctor or get medical help right away if you notice any of these more serious side effects: ??? low blood pressure A few people may have an allergic reaction to this medicine. Symptoms can include difficulty breathing, skin rash, itching, swelling, or severe dizziness. If you notice any of these symptoms, seek medical help quickly. ?? Extra Please speak with your doctor, nurse, or pharmacist if you have any questions about this medicine. ?? https://api.[employer]/[email or web address]/fdbpem/9371 IMPORTANT NOTE: This document tells you briefly how to take your medicine, but it does not tell youall there is to know about it. Your doctor or pharmacist may give you other documents about your medicine. Please talk to them if you have any questions. Always follow their advice. There is a more complete description of this medicine available in [place]. Scan this code on your smartphone or tablet or use the web address below. You can also ask your pharmacist for a printout. If you have any questions, please ask your pharmacist. The display and use of this drug information is subject to Terms of Use. Copyright(c) 2021 [employer]. ?? [employer]. All rights reserved. This information is not intended as a substitute for professional medical care. Always follow your healthcare professional's instructions. ??Jose Callejas RN: PERFORM Event Display: Patient Education Leaflets Authored Date: [id number] Metoprolol Extended Release Oral Tablet ?? [id number] Metoprolol Extended Release Oral Tablet Brands: Toprol Uses This medicine is used for the following purposes: ??? angina ??? heart attack ??? heart failure ???high blood pressure ??? irregular heart beat ??? prevent migraine headaches ??? movement disorder ?? Instructions Swallow the medicine without crushing or chewing it. This medicine may be taken with or without food. It is very important that you take the medicine at about the same time every day. It will work best if you do this. Keep the medicine at [...] about all medicines taken. Include prescription and plld-dna-pomyfzs medicines, vitamins, and herbal medicines. Speak with your doctor or pharmacist before starting or stopping any medicine. This medicine may cause low blood sugar. Eat regular meals and exercise as instructed by your doctor. Tell your doctor if you have symptoms of low blood sugar such as nausea, sweating, cold skin, fastheartbeat, hunger, and irritability. If you have diabetes, this medicine may hide some signs of low blood sugar, such as fast heartbeat.Check your blood sugar regularly and for other signs of low blood sugar. Do not suddenly stop taking this medicine. Check with your doctor before stopping. ?? Cautions Tell your doctor and pharmacist if you ever had an allergic reaction to a medicine. Some patients with weak hearts may have worsening of symptoms. If you notice difficulty breathing, weight gain, or swelling of your legs or ankles, let your doctor know right away. Do not use the medication any more [...] or other side effects. ??? diarrhea ??? dizziness or drowsiness ??? lack of energy and tiredness ??? slow heartbeat ??? low blood pressure Call your doctor or get medical help right away if you notice any of these more serious side effects: ??? confusion ??? depression or feeling sad ??? fainting ??? pale or blue skin, lips or fingernails??? shortness of breath ??? unusual or unexplained tiredness or weakness ??? sudden or unexplained weight gain A few people may have an allergic reaction to this medicine. Symptoms can include difficulty breathing, skin rash, itching, swelling, or severe dizziness. If you notice any of these symptoms, seek medical help quickly. ?? Extra Please speak with your doctor, nurse, or pharmacist if you have any questions about this medicine. ?? https://api.Flav[employer]/[email or web address]/fdbpem/7168 IMPORTANT NOTE: This document tells you briefly how to take your medicine, but it does not tell youall there is to know about it. Your doctor or pharmacist may give you other documents about your medicine. Please talk to them if you have any questions. Always follow their advice. There is a more complete description of this medicine available in [place]. Scan this code on your smartphone or tablet or use the web address below. You can also ask your pharmacist for a printout. If you have any questions, please ask your pharmacist. The display and use of this drug information is subject to Terms of Use. Copyright(c) 2021 [employer]. ?? [employer]. All rights reserved. This information is not intended as a substitute for professional medical care. Always follow your healthcare professional's instructions. ?? Event Display: Cardiac Rhythm Strips Authored Date: BHSPowerscribe , CIS S: TRANSCRIBE Adia Cabello MD: VERIFY Event Display: Result: Authored Date: Examination: Chest performed on 01/16/2022. History: Chest pain. Findings: Frontal and lateral views of the chest are compared to a prior study dated 11/27/2021. The cardiac and mediastinal silhouettes are within normal limits. The lungs are clear. The osseous and soft tissue structures are unremarkable. Impression: There is no acute cardiopulmonary disease. WSN: [id number] Ordering Physician: Mau Matos Dictated By: Adia Cabello MD Dictated Date/Time: 01/16/22 1:22 pm Reviewed By: Adia Cabello MD Signed By: Adia Cabello MD Signed Date/Time: 01/16/22 1:22 pm Transcribed By: ALEXIS Transcribed Date/Time: 01/16/22 1:22 pm Hospital Progress note Júnior BETH, Jose: PERFORM, MODIFY, MODIFY, MODIFY, SIGN, VERIFY Event Display: Progress Note Hospital Authored Date: Patient: SHEREEN TAYLOR Age: 31 years Sex: Female : 1990 Associated Diagnoses: None Author: Jose Callejas RN Findings Evaluation Assumed care of patient approx. 0700. Tele SR. LS clear on room air. A&Ox4, lethargic. Patient declined breakfast even after encouragement, patient reports 9/10 abdominal cramps, declining Tylenol,declining other morning medications. Attempted to give medications x 2. Poor intake. Dr. Linn notified. No new orders at this time.Call moore within reach. SBA up to commode. Safety precautions maintained. Patient medically cleared to be discharged, patient was educated to take all her meds today since she declined them this morning. Patient verbalized agreement and understanding. .Mary Lou Reynaga RN: PERFORM, SIGN, VERIFY Event Display: Progress Note Hospital Authored Date: [id number] Patient: SHEREEN TAYLOR Age: 31 years Sex: Female : 1990 Associated Diagnoses: None Author: Mary Lou Reynaga RN Findings Problem Related to Alteration in Cardiac Function (new) : Alteration in Cardiac Function/new 01/18/2022 23:00 EST Alteration in Cardiac Status Related to Heart failure Goals & Outcomes, Cardiac Status Pt will resume/maintain adequate cardiac output, Pt will resume/maintain adequate hemodynamic status, Pt will resume/maintain adequate respiratory function, Pt will resume/maintain intact neuro function, Pt will maintain adequate GI/ function appropriate for pt,Pt will maintain adequate nutrition status, Pt will understand fluid restriction for Heart Failure Cardiac Interventions Implemented Assess/monitor cardiac status, Assess/monitor neuro status, Assess/monitor respiratory status, Assess for tolerance of IV infusions; verify rate & dose, Document & Monitor O2 Sats; Administer O2 as ordered, Ensure adequate caloric intake, If no bowel movementin 3 days activate bowel regime, Monitor & document daily weight BH Goals/Interventions, Cardiac Yes Cardiac, Problem Start 01/17/2022 23:30 Reviewed Plan with, Cardiac Status Patient Patient Progression, Cardiac Status Patient progressing according to plan . Nursing Data Cardiac Data. : Cardiac Data. 01/18/2022 21:00 EST Cardiac Rhythm Normal sinus rhythm Ankle, left 1+ trace Ankle, right 1+ trace Pedal, left 1+ trace, Non-pitting Pedal, right 1+ trace, Non-pitting ekg monitor Yes Cardiovascular WNL except . Vital Signs : VITAL SIGNS SECTION 01/18/2022 17:47 EST Pulse Rate 82 bpm Respiratory Rate 18 br/min Systolic Blood Pressure 101 mm Hg Diastolic Blood Pressure 57 mm Hg Blood pressure sites Arm, right Mean Arterial Pressure 72 mm Hg Pulse Pressure 44 mm Hg Oxygen Saturation 96 % Mode of Delivery (Oxygen) Room air . Evaluation Pt A/O x 4; she is NSR on tele; at the time of the assessment she denied any SOB; lung sounds were clear at the top with diminished bases; pt stated she had 9/10 pain on her neck but refused her PO pain medications; trace edema noted to the lower extremities; the pt also refused her HS vital signs, HSPOC & HS hydralazine, provider Jaz Bonner was notified; pt agreed to receive her IV Lasix as ordered in CIS; at the time of this note the pt is resting in her room with her call-light button besideher; bed alarm activated; nursing care provider will continue to monitor for safety & comfort..Temitope CARLSON, Inna Lares: PERFORM Event Display: Progress Note Hospital Authored Date: Patient: ??SHEREEN TAYLOR ? Age:??31 Years?Sex:??Female?:??1990?? Subjective Patient in pain, back and neck pain, chronic pain thought to be occipital neuralgia, treated with Oxycodone outpatient. Patient has nausea from the pain and pain medications Continues be fluid overloaded on exam Endorses being short of breath Review of Systems ?? Cardiovascular:??Denies any chest pain or palpitations. Pulmonary:??endorses SOB GI:??Denies any abdominal pain, nausea, vomiting, diarrhea or constipation. :??Denies any urinary retention. Objective Vital Signs?? Temperature: 97.4 DegF (01/18/22 08:07:00) Temperature Route: Temporal (01/18/22 08:07:00) Pulse Rate: 85 bpm (01/18/22 09:51:00) Respiratory Rate: 18 br/min (01/18/22 10:22:00) Systolic Blood Pressure: 104 mm Hg (01/18/22 09:52:00) Systolic Blood Pressure: 104 mm Hg (01/18/22 09:52:00) Diastolic Blood Pressure: 68 mm Hg (01/18/22 09:52:00) Diastolic Blood Pressure: 68 mm Hg (01/18/22 09:52:00) Blood pressure sites: Arm, right (01/18/22 08:07:00) Mean Arterial Pressure: 80 mm Hg (01/18/22 08:07:00) Pulse Pressure: 36 mm Hg (01/18/22 08:07:00) Oxygen Saturation: 98 % (01/18/22 08:07:00) Liters per Minute: 2 L/min (01/18/22 01:36:00) Mode of Delivery (Oxygen): Room air (01/18/22 08:07:00) Early Warning Score: 2 (01/18/22 13:23:23) ? Intake/Output? 01/16 16:22 01/18 07:00 01/17 07:00 01/16 07:00 01/15 07:00 ?? 01/18 15:48 01/18 15:48 01/18 06:59 01/17 06:59 01/16 06:59 Intake ?180 ?0 ?180 ?0 ?0 Output ?300 ?0 ?300 ?0 ?0 Net Total ? -120 ?0 ? -120 ?0 ?0 ? Physical Exam Vital Signs (24 hrs) Last Charted?? Minimum?? Maximum?? Resp Rate?? 18?? 01/18/2022 10:22?? 16?? 01/17/2022 20:41 ?? 19?? 01/17/2022 17:43?? SBP?? 104?? 01/18/2022 09:52?? 100?? 01/17/2022 17:43 ?? 115?? 01/17/2022 20:41?? DBP?? 68?? 01/18/2022 09:52?? 57?? 01/17/2022 20:41 ?? 83?? 01/17/2022 17:43? General Appearance: The patient is pain Cardiovascular: RRR S1 and S2 heard with no M/R/G. JVD noted, difficult to assess level Respiratory: ??Breath sounds clear to auscultation bilaterally. No wheezing. Good air movement throughout both lungs. GI: Soft. Nontender and nondistended. Normal bowel sounds present throughout abdomen.?? MS: ??No edema or erythema in the lower extremities. Left toe amputation noted. No wounds seen on the feet. Peripheral sensation intact.?? Neuro: ??No slurred speech. ??Patient seen moving their upper and lower extremities independently. Psych: Alert and oriented x3. Appropriate and pleasant. ? _ Inpatient Medications Medications (22) Active SCHEDULED: (12) Acetaminophen 325 mg Tablet (Tylenol 325 mg oral tablet) ??975 mg, By Mouth, Every 8 hours Furosemide Inj (Lasix ??Inj) ??40 mg 4 mL, IV Push Slowly, 2 times a day hydrALAZINE 25 mg Tablet (hydrALAZINE 25 mg oral tablet) ??50 mg, By Mouth, 3 times a day Insulin Detemir 100 units/mL Inj (Levemir Inj) ??15 units 0.15 mL, Subcutaneous Injection, Daily at bedtime Insulin Lispro 100 units/mL Inj (3mL) (Insulin LISPRO Sliding Scale) ??2-10 units, Subcutaneous Injection, 3 times a day before meals Lidocaine 5% Topical Patch (Lidocaine 5% Patch) ??1 each, Topically, Daily Lisinopril 5 mg Tablet (lisinopril 5 mg oral tablet) ??5 mg, By Mouth, Daily Magnesium Oxide 400 mg Tablet (magnesium oxide 400 mg oral tablet) ??400 mg, By Mouth, Once Metoprolol 100 mg XL Tablet (metoprolol 100 mg oral tablet, extended release) ??200 mg, By Mouth, Daily NIFEdipine 30 mg ER Tablet (Procardia XL 90 mg oral tablet, extended release) ??90 mg, By Mouth, Daily Remove Patch (Remove Lidocaine Patch) ??1 each, Topically, Daily at bedtime Rosuvastatin 5 mg Tablet (Crestor 5 mg oral tablet) ??5 mg, By Mouth, Daily CONTINUOUS: (0) PRN: (10) [...] Gm, IV Push Slowly, Every 15 minutes Melatonin 3 mg Tablet (Melatonin Tablet) ??3 mg, By Mouth, Daily at bedtime NaCl 0.9% Flush 3ml (NaCL 0.9% Flush) ??3 mL, IV Push, Every 8 hours Ondansetron 2mg/mL Inj (2mL Vial) (Zofran Inj) ??4 mg, IV Push, Every 6 hours OxyCODONE 5 mg IR Tablet (oxyCODONE 5 mg oral tablet) ??5 mg, By Mouth, Every 6 hours Polyethylene Glycol 17 Gm Powder (MiraLax Powder) ??17 Gm 1 pack/packet, By Mouth, Daily Senna 8.6 mg / Docusate 50 mg tablet (Docusate/Senna Tablet) ??1 tablet, By Mouth, 2 times a day ? Assessment/Plan Shereen is a??31-year-old??woman with past medical history of nonischemic cardiomyopathy (regadenoson stress test in February 2021 was normal with no defects), heart failure with mid range ejection fraction last echo done in November 2021 showed an EF of 40-45% from 35 to 40% in October 2021 this is her baseline since February 2021, mild global hypokinesis with regional variation, mild MR), Chronic normocytic anemia, CKD stage IV with baseline creatinine 3- 4,?? insulin dependent type??2 diabetes [id number] 5.5 in October 2021, History of preeclampsia (urgent on for severe preeclampsia with demise) presented to the hospital for shortness of breath.?She is being managed??with IV diuresis for??acute heart failure exacerbation. ?? Acute on chronic systolic congestive heart failure Nonischemic cardiomyopathy (regadenoson stress test in February 2021 was normal with no defects) Heart failure with??midrange ejection fraction last echo done in November 2021 showed an EF of 40-45%from 35 to 40% in October 2021 this is her baseline since February 2021, mild global hypokinesis with regional variation, mild MR) Chronic normocytic anemia Acute heart failure exacerbation is secondary to medication??noncompliance since patient ran out of her medication. high-sensitivity troponin initially 81, down trended to 76 then 80. [place] ACS. Cardiology eval done, appreciate recommendations Per cardiology No need for repeat echo since last echo was done 1 month ago and heart failure exacerbation is most likely secondary to patient not having her medications. ?? Plan: -IV Lasix 40 mg twice daily, plan to transition to po diuretics tomorrow -I/o Monitoring - daily weight -metoprolol 200 mg XL daily -??nifedipine 90 mg extended release daily -??hydralazine 50 mg 3 times daily - lisinopril 5 mg daily - rosuvastatin??5 mg daily - social work??consult given her??several comorbidities and medication noncompliance ?Insulin dependent type 2 diabetes mellitus (E11.9):?sliding scale??insulin and resume home dose of insulin Levemir ?? CKD stage 4 due to type 2 diabetes mellitus (E11.):?? Creatinine 3.3 on 01/18 Baseline has been trending upward in last year Increase in creatine thought to be due to cardiorenal syndrome ?? Plan Continue to monitor daily ?? Back Pain Migraine Neck Pain Leg pain Patient had history of migraine but takes oxycodone??5mg q6H at home?? Started on oxycodone??5 mg??every 6 hours as needed Dilaudid was discontinued today Patient is refusing po Oxycodone and Tylenol due to nausea?? Antiemetics offered to patient, patient declined ?? Plan Scheduled Tylenol 975 mg Oxycodone 5mg q6H continue to monitor ?? Hypertension:?? History of hypertension, BP has been controlled during this admission ?? Plan?? -metoprolol 200 mg XL daily -Continue home nifedipine 90 mg extended release daily -Continue hydralazine 50 mg 3 times daily -??lisinopril 5 mg daily ?? Chronic anemia Hgb??7.5 Baseline??Hgb 8 ?? Plan Continue to monitor ?? Quality Measures Code Status: full code VTE Prophylaxis:??Heparin OMN: IV diuresis ?? Inna Linn MD [facility]- PGY1 Pager #[phone] ?? Patient was seen and discussed with ??Juan Manuel ?? CT Head WO contrast BHSPowerscribe , CIS S: TRANSCRIBE Minda Lamas DO: ARNALDO Holland MD, Alma: VERIFY Event Display: Result: Authored Date: CT Head/Brain W/O Contrast Reason: Headache(s); Clinical Question(s): Subarachnoid Hemorrhage; TECHNIQUE: Noncontrast head CT using axial technique and reconstructed in axial and coronal planes. Weight-based protocol using automatic tube modulation was used to optimize exposure parameters. CTDIvol Head: 45.80 mGy, DLP Head: 773 mGy*cm. COMPARISON: CT head 11/27/2021. MRI brain and MRA head 12/02/2021 FINDINGS: BRAIN and EXTRA-AXIAL SPACES: No parenchymal hemorrhage, midline shift or mass effect. [place]-white matter differentiation is well preserved. No acute infarct. Negative insular ribbon and hyperdense vessel signs. Ventricles, sulci and basilar cisterns are normal. No white matter lesions. No subarachnoid hemorrhage, subdural or epidural collections. CALVARIUM, SKULL BASE AND SOFT TISSUES: No fractures or suspicious bony lesions. The paranasal sinuses and mastoid air cells are clear. Visualized orbits and globes are intact. The extracranial soft tissues are unremarkable. IMPRESSION: No acute intracranial abnormality. I have personally reviewed the images and I agree with this report. WSN: [id number] Ordering Physician: Cash Knight Dictated By: Minda Lamas DO Dictated Date/Time: 01/17/22 7:23 am Reviewed By: Alma Holland MD Signed By: Alma Holland MD Signed Date/Time: 01/17/22 7:28 am Transcribed By: ALEXIS Transcribed Date/Time: 01/17/22 2:48 am Patient Care team information Care Team PersonnelName: Anuradha Morris RN Position: [facility] RN Member Role: Primary Care Nurse Name: Samantha Reynolds RN Position: S RN Member Role: Primary Care Nurse Name: Omega Gillespie RN Position: S RN Member Role: Primary Care Nurse Name: Paty Kelly RN Position: S RN Member Role: Primary Care Nurse Name: Sonia Malone Position: [facility] RN Member Role: Primary Care Nurse Name: Keira Desai RN Position: [facility] RN Member Role: Primary Care Nurse Name: Gomez Moseley RN Position: [facility] RN Supv Member Role: Primary Care Nurse Name: Vashti Bruce RN Position: [facility] RN Member Role: Primary Care Nurse Name: Raghav Granger Position: [facility] RN Member Role: Primary Care Nurse Name: Cassy Caraballo RN Position: [facility] RN Member Role: Primary Care Nurse Name: Lisa Vines RN Position: [facility] RN Member Role: Primary Care Nurse Name: Larissa Barnett RN Position: [facility] RN Member Role: Primary Care Nurse Name: Inna Beckwith RN Position: [facility] RN Member Role: Primary Care Nurse Name: Cady Araya RN Position: [facility] RN Member Role: Primary Care Nurse Name: Abdon Beard MD Position: [facility] Outreach Member Role: PCP Address: Address: [address] [place] [id number]- Name: Michele Blancas DO Position: [facility] Renal MD Member Role: Lifetime Consulting Physician Address: Address: [address] [place], [place] [address] [place] [address]- Name: María Acosta RN Position: [facility] RN Member Role: Primary Care Nurse Name: Heather Correa RN Position: [facility] RN Member Role: Primary Care Nurse Name: Janelle Hall RN Position: [facility] RN Member Role: Primary Care Nurse Name: Alison Howard RN Position: [facility] RN Member Role: Primary Care Nurse Name: Farzana Sevilla Position: [facility] RN Member Role: Primary Care Nurse Name: Libertad Sim RN Position: [facility] RN Member Role: Primary Care Nurse Name: Javan Pimentel MD Position: [facility] Renal MD Member Role: Lifetime Consulting Physician Address: Address: [address] [place] [address] [address] [facility], [address] Name: Heather Pal RN Position: [facility] RN Member Role: Primary Care Nurse Name: Jody Rasmussen RN Position: [facility] RN Member Role: Primary Care Nurse Name: Mau Hazel RN Position: [facility] RN Member Role: Primary Care Nurse Name: Pedro aTylor RN Position: [facility] RN Member Role: Primary Care Nurse Name: Charlotte Singletary RN Position: [facility] OB RN Member Role: Primary Care Nurse Name: Kendall Coleman RN Position: [facility] RN Member Role: Primary Care Nurse Name: Nancy Fair RN Position: [facility] SN RN Member Role: Primary Care Nurse Name: Fernando Siddiqi MD Position: [facility] Renal MD Member Role: Lifetime Consulting Physician Address: Address: [address] [place] [address] [facility] [address] Name: Lianne Byrnes RN Position: [facility] RN Member Role: Primary Care Nurse Name: Tona Jacome LPN Position: [facility] RN Member Role: Primary Care Nurse Name: Tatiana Madrigal RN Position: [facility] RN Member Role: Primary Care Nurse Name: Jose Callejas RN Position: [facility] RN Member Role: Primary Care Nurse Name: Vy RAMIREZ Attending Position: [facility] ED Medicine Name: Laura Jauregui RN Position: [facility] ED RN W/OE and Tasks Member Role: Patient Care Provider Name: Panfilo Trejo RN Position: [facility] [facility] RN W/OE and Tasks Member Role: Patient Care Provider Name: Jody Maguire Position: [facility] Member Role: Florist Designer Care Team Related PersonsName: BRUNA LEONOR Address: home [address] [place] [address] Name: REJI TAYLOR Address: home [address] [place] [address] Name: JEFF CHAPMAN Address: [address] Address: home [address] [address] Name: ELI BONILLA Address: home [address] [address]
--- OUTSIDE RECORDS SUMMARY | 2022-03-31 18:25 | XMS_ITS | Continuity of Care Document ---
:1990 Author Organization [facility] Address [address] [place] [address]- Care Team Providers Name Role Phone Chirag CARLSON, Abdon Primary Care Physician Encounter [facility] Date(s): 11/27/21 - 12/12/[address] [id number] Encounter Diagnosis Hypertension in (Final) - 11/27/21 High-risk (Final) - 11/27/21 Chronic HFrEF (heart failure with reduced ejection fraction) (Discharge Diagnosis) - 12/08/21 Discharge Disposition: A-D/C AMA Attending Physician: Indy Rae MD Admitting Physician: Christiana Quiros MD Referring Physician: Not on Staff, Referring [...] '943Admin Note: TD4 Admin Note: unknown exact [id number] Note: unknown exact date Medications Alcohol Pads [...] Pharmacy Electronically, [facility]/pharmacy #[id number], Partial fill upon patient request ifthe prescription is for a schedule II opioid drug... Start Date: 08/24/21 Status: Orderedaspirin 81 mg oral delayed release tablet 2 tablet = 162 mg, By Mouth, Daily, # 90 tablet, 3 Refills, Maintenance, 10/05/21 12:28:00 EDT, CR Tablet, [id number], Partial fill upon patient request if the prescription is for a schedule IIopioid drug., 168, cm, 09/29/21 14:25:00 EDT, Hei... Start Date: 10/05/21 Status: OrderedBlood Pressure Monitor See Instructions, # 1 kit, Maintenance, To test blood pressures 2 x day. Severe HTN in , 08/31/21 12:03:00 EDT, Supply Start Date: 08/31/21 Status: Orderedcarvedilol 25 mg oral tablet 50 mg, Tablet, By Mouth, 12/12/21 9:00:00 EDT Start Date: 12/12/21 Stop Date: 12/12/21 Status: CompletedDilaudid Inj 1 mg, Injection, IV Push Slowly, Every 4 hours, PRN for Pain , Severe, Routine, 12/09/21 14:25:00 EDT Start Date: 12/09/21 Stop Date: 12/12/21 Status: DiscontinuedFreestyle Lancets See Instructions, # 600 each, Refills [...] Date: 08/24/21 Stop Date: 09/23/21 Status: OrderedNIFEdipine 30 mg oral tablet, extended release 90 mg, ER Tablet, By Mouth, 12/12/21 9:00:00 EDT Start Date: 12/12/21 Stop Date: 12/12/21 Status: CompletedoxyCODONE 5 mg oral capsule 1 capsule = 5 mg, By Mouth, Every 6 hours, PRN as needed for pain, 0 Refills, Maintenance, 08/25/21 12:10:00 EDT, Capsule, Partial fill upon patient request if the prescription is for a schedule II opioid drug. Start Date: 08/25/21 Status: OrderedoxyCODONE 5 mg oral tablet 5 mg, Tablet, By Mouth, Every 4 hours, PRN for Pain , Severe, Routine, 12/12/21 9:08:00 EDT Start Date: 12/12/21 Stop Date: 12/19/21 Status: OrderedPeak Flow Meter (Adult) See Instructions, # 1 each, Maintenance, Use when wheezing or chest tightness. Call for peak flow less than 200., 08/24/21 15:17:00 EDT, Supply, 168, cm, 08/24/21 11:41:00 EDT, Height, 75.8, kg, 06/09/21 11:38:00 EDT, Dry Weight Start Date: 08/24/21 Status: OrderedPen [place], 30 G x 8 mm BD Ultra [...] 11/17/21 16:18:00 EDT, [facility] Dr Matt Gutierrez by pharmacy records.4Managed by [id number] by PCP with Tylenol Diagnosis Diagnosis Type Effective Dates Health Status Clinical In formant Service Chronic HFrEF Discharge 12/08/21 (heart failure Diagnosis with reduced ejection fraction) Procedures Procedure Date Related Diagnosis Body Site Status delivery only; 12/09/21 Comp leted Results Orders for Microbiology Reports Name Date Urine Culture 11/27/21 Microbiology Reports TEST:Urine Culture STATUS:Auth (Verified) BODY SITE: SOURCE:URINE COLLECTED DATE/TIME:11/27/21 3:15 PMUrine Culture SPECIMEN DESCRIPTION : URINE CLEAN CATCH/MIDSTREAM SPECIAL REQUESTS : NONE CULTURE : <10,000 COL/ML STREPTOCOCCUS AGALACTIAE SERO GROUP B SUSCEPTIBILITY TESTING NOT ROUTINELY PERFORMED ON THIS ISOLATE. This isolate was identified using Maldi-TOF system IF THIS PATIENT IS , PLEASE REFER TO ACOG GUIDELINES (2002) FOR APPROPRIATE SCREENING AND MANAGEMENT OF COLONIZED WOMEN. CULTURE RESULTS PHONED TO: EMP [id number] AT 14:30 ON 11/28/21 LDRP BY [employer] [id number]. REPORT STATUS : FINAL 2Radiology Reports Exam Date Time Procedure Performing Provider Status 11/27/21 6:54 AM Chest 2 Views Frontal and Lat Nancy Krishna; Au th (Verified) Notes:(Chest 2 Views Frontal and Lat) Reason For Exam: Shortness of Breath, Fever;Other:RESULT: Chest 2 Views Frontal and Lat Chest 2 Views Frontal and Lat Hx of Present Illness: painful inspiration and productive cough x 3days with chills and nausea and shortness of breath; Reason: Other:; Shortness of Breath, Fever; Clinical Question(s): Pneumonia COMPARISON: Multiple prior chest x-rays, the most recent of which is dated 07/11/2021. FINDINGS: LINES AND TUBES: None. LUNGS AND PLEURA: Clear lungs. Normal pulmonary vascularity. No pleural effusion. No pneumothorax. HEART, MEDIASTINUM AND EVERT: Heart is normal in size. Normal mediastinal and hilar contour. BONES AND SOFT TISSUES: No acute abnormality. IMPRESSION: No acute abnormality. WSN: [id number] Ordering Physician: Shelly Bermudez Dictated By: Emy Campbell MD Dictated Date/Time: 11/27/21 7:28 am Reviewed By: Emy Campbell MD Signed By: Emy Campbell MD Signed Date/Time: 11/27/21 7:28 am Transcribed By: ALEXIS Transcribed Date/Time: 11/27/21 7:27 am Vital Signs Most recent to oldest 1 2 3 [Reference Range]: Height 168 cm 168 cm 168 cm (12/12/21 7:25 AM) (12/12/21 4:44 AM) (12/11/21 2:22 AM) Weight 90.1 kg 90.4 kg 90.7 kg (12/05/21 11:36 AM) (12/01/21 11:07 AM) (11/30/21 8:03 AM) Oxygen Saturation 96 % 98 % 93 % [94-100 %] (12/12/21 7:25 AM) (12/12/21 4:00 AM) *L* (12/11/21 11:00 PM) Pulse Rate [55-90 bpm] 81 bpm 81 bpm 87 bpm (12/12/21 8:30 AM) (12/12/21 7:25 AM) (12/12/21 4:00 AM) Body Mass Index 32.03 kg/m2 30.65 kg/m2 30.61 kg/m2 [18.5-24.99 kg/m2] *>HHI* *>HHI* *>HHI* (12/01/21 11:07 AM) (11/27/21 2:57 PM) (11/27/21 4: 04 AM) Blood Pressure 120/61 mm Hg 120/61 mm Hg 120/61 mm Hg [90-138/55-84 mm Hg] (12/12/21 8:30 AM) (12/12/21 8:29 AM) (11/26 09/16 7:25 AM) Respiratory Rate [16-30 18 br/min 15 br/min 20 br/mi n br/min] (12/12/21 1:34 PM) *L* (12/12/21 8:2 8 AM) (12/12/21 10:20 AM) Temperature [96.8-100.4 98.0 DegF 98.1 DegF 98.6 Deg F DegF] (12/12/21 7:25 AM) (12/12/21 4:00 AM) (12/11/21 11:00 PM) Liters per Minute 2 L/min 2 L/min (11/27/21 4:15 PM) (11/27/21 8:28 AM) Mode of Delivery Room air Room air Room air (Oxygen) (12/12/21 7:25 AM) (12/12/21 4:00 AM) (12/11/21 11:00 PM) Blood pressure sites Arm, right Arm, right Arm, right (12/12/21 7:25 AM) (12/12/21 4:00 AM) (12/11/21 11:00 PM) Temperature Route Oral Oral Oral (12/12/21 7:25 AM) (12/12/21 4:00 AM) (12/11/21 11:00 PM) Dry Weight 86.5 kg 86.4 kg 86.4 kg (11/27/21 2:57 PM) (11/27/21 4:25 AM) (11/27/21 4:0 4 AM) Weight Obtained Via Standing scale Standing scale Standing sca le (12/05/21 11:36 AM) (11/30/21 8:03 AM) (11/29/21 8 :09 AM) Dry Weight Obtained Via Patient/family stated (11/27/21 4:04 AM) Social History Social History Type Response Smoking Status Never (less than 100 in life time) entered on: 08/22/21 Sex Note 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 FINDINGS: LINES AND TUBES: None. LUNGS AND PLEURA: Clear lungs. Normal pulmonary vascularity. No pleural effusion. No pneumothorax. HEART, MEDIASTINUM AND EVERT: Heart is normal in size. Normal mediastinal and hilar contour. BONES AND SOFT TISSUES: No acute abnormality. IMPRESSION: No acute abnormality. WSN: [id number] Ordering Physician: Shelly Bermudez Dictated By: Emy Campbell MD Dictated Date/Time: 11/27/21 7:28 am Reviewed By: Emy Campbell MD Signed By: Emy Campbell MD Signed Date/Time: 11/27/21 7:28 am Transcribed By: ALEXIS Transcribed Date/Time: 11/27/21 7:27 am Patient Care team information PersonnelName: Abdon Beard MD Address: Address: [address] [place] [id number]
--- OUTSIDE RECORDS SUMMARY | 2022-03-31 18:25 | XMS_ITS | Continuity of Care Document ---
:1990 Author Organization [facility] Address [address] [place] [id number]- Care Team Providers Name Role Phone Chirag CARLSON, Abdon Primary Care Physician [place] [facility] [place] 02/02/21 - 02/05/[address] [address]- Encounter Diagnosis Chest pain (Final) - 02/02/21 Bilateral pleural effusion (Final) - 02/03/21 Discharge Disposition: A-D/C Home Attending Physician: Natalia CARLSON, Phylicia Dejesus Admitting Physician: Rc Taylor MD Referring Physician: Not on Staff, Referring [...] '943Admin Note: TD4 Admin Note: unknown exact [id number] Note: unknown exact date Medications amLODIPine 10 mg oral tablet 1 tablet = 10 mg, By Mouth, Daily, 0 Refills, Maintenance, 02/03/21 9:50:00 EST, Tablet, ; Start Date: 02/03/21 Status: OrderedamLODIPine 10 mg oral tablet 10 mg, Tablet, By Mouth, 02/05/21 9:00:00 EST Start Date: 02/05/21 Stop Date: 02/05/21 Status: Completedbedside commode bedside commode, See Instructions, # 1 each, Refills 0, Tot. Refills 0, Maintenance, DX DM E 11.9 using at bedside, 11/14/17 17:17:55 EDT, Compound Start Date: 11/14/17 Status: OrderedDEXCOM G6 ELECTRONICS INSTALLER DEXCOM G6 ELECTRONICS INSTALLER, See Instructions, # 1 each, Refills 0, Tot. Refills 0, Maintenance, Use to monitor blood lgucose levels [facility]: [address]-97 E10.9, 04/06/20 12:07:00 EST, Supply, 170, cm, 03/05/20 14:05:00 EST, Height, 82, kg, 03/05/20 14:53:00... Start Date: 04/06/20 Status: OrderedDEXCOM G6 SENSOR, 3 PACK DEXCOM G6 SENSOR, 3 PACK, See Instructions, # 3 each, Refills 3, Tot. Refills 3, Maintenance, Use tomonitor blood sugar. E10.9 [facility] [address]-01, 07/16/20 14:20:00 EDT, Supply Start Date: 07/16/20 Status: OrderedDEXCOM G6 TRANSMITTER DEXCOM G6 TRANSMITTER, See Instructions, # 1 each, Refills 3, Tot. Refills 3, Maintenance, DEXCOM [id number], 07/16/20 14:20:00 EDT, Supply Start Date: 07/16/20 Status: Ordereddiclofenac 1% topical gel = 2 Gm, Topically, 4 times a day, # 112 Gm, 0 Refills, Maintenance, 02/05/21 12:34:00 EST, Gel, [facility], Partial fill upon patient [...] 3 Refills, Maintenance, 11/17/20 10:19:00 EDT, Tablet, [facility]/pharmacy #[id number], Partial fillupon patient request if the prescription is for a... Start Date: 11/17/20 Status: OrderedLasix 40 mg oral tablet 40 mg, 1, tablet, By Mouth, Daily, # 30 tablet, Refills 0, Tot. Refills 0, Maintenance, 02/05/21 12:27:00 EST, Route to Pharmacy Electronically, [facility], Partial fill upon patient request if the prescription is for a schedule II opioi... Start Date: 02/05/21 Stop Date: 03/07/21 Status: OrderedLevemir FlexTouch 100 units/mL subcutaneous solution See Instructions, Take 40 units once daily. E11.65. 90-day supply., # 45 mL, 3 Refills, Maintenance,11/17/20 10:20:00 EDT, [facility]/pharmacy #[id number], Stop Lantus. Start Levemir., 170, cm, 03/05/20 14:05:00 EST, Height, 82, kg, 03/05/20 14:53:00 EST, Dry Weight Start Date: 11/17/20 Status: Orderedmetoprolol 25 mg oral tablet 25 mg, Tablet, By Mouth, 02/05/21 9:00:00 EST Start Date: 02/05/21 Stop Date: 02/05/21 Status: CompletedMetoprolol Tartrate 25 mg oral tablet 1 tablet = 25 mg, By Mouth, 2 times a day, 0 Refills, Maintenance, 02/03/21 9:49:00 EST, Tablet, ; Start Date: 02/03/21 Status: OrderedNovoLOG FlexPen 100 units/mL subcutaneous solution See Instructions, Take 11-21 units, 3 times daily before meals. E11.65. 90-day supply., # 75 mL, 3 Refills, Maintenance, 11/17/20 10:20:00 EDT, Solution, [facility]/pharmacy #[id number], Partial fill upon patient request if the prescription is for a schedule II op... Start Date: 11/17/20 Status: OrderedoxyCODONE 5 mg oral tablet 5 mg, 1, tablet, By Mouth, Every 6 hours, PRN, Refills 0, Tot. Refills 0, Maintenance, as needed forpain, 02/03/21 16:52:00 EST, ; Start Date: 02/03/21 Status: OrderedoxyCODONE 5 mg oral tablet 5 mg, Tablet, By Mouth, Every 4 hours, PRN for Pain , Severe, Routine, 02/05/21 7:21:00 EST Start Date: 02/05/21 Stop Date: 02/06/21 Status: DiscontinuedPotassium Chloride (Eqv-K-Tab) 20 mEq oral tablet, extended release 1 tablet = 20 mEq, By Mouth, Daily, # 14 tablet, 0 Refills, Maintenance, 02/05/21 12:28:00 EST, [facility], Partial fill upon patient [...] type 2(Confirmed)1 Active Hypertension(Confirmed) Active Care Coordination [facility], [place] Active Jeanne, CC (Confirmed) delivery(Confirmed) Active delivery(Confirmed) Active 1Not seem at [facility] since 08/12/2016. Multiple no show in our center. She is seen by other provider Dr Matt Gutierrez by pharmacy records. Results Orders for Microbiology Reports Name Date Blood Culture 02/02/21 Blood Culture 02/02/21 Blood Culture #2 02/02/21 Microbiology Reports TEST:Blood Culture STATUS:Unauthenticated BODY SITE: SOURCE:Blood COLLECTED DATE/TIME:02/03/21 5:41 AMBlood Culture SPECIMEN DESCRIPTION : BLOOD NOSITE SPECIAL REQUESTS : NONE CULTURE : NO GROWTH AFTER 48 HOURS REPORT STATUS : PRELIMINARY REPORT TEST:Blood Culture STATUS:Unauthenticated BODY SITE: SOURCE:Blood COLLECTED DATE/TIME:02/02/21 11:24 PMBlood Culture SPECIMEN DESCRIPTION : BLOOD NO SITE SPECIAL REQUESTS : NONE CULTURE : NO GROWTH AFTER 48 HOURS REPORT STATUS : PRELIMINARY REPORT TEST:Blood Culture, Second Order STATUS:Unauthenticated BODY SITE: SOURCE:Blood COLLECTED DATE/TIME:02/02/21 11:24 PMBlood Culture, Second Order SPECIMEN DESCRIPTION : BLOOD NO SITE SPECIAL REQUESTS : NONE CULTURE : NO GROWTH AFTER 48 HOURS REPORT STATUS : PRELIMINARY REPORT Radiology Reports Exam Date Time Procedure Performing Provider Status 02/02/21 11:05 PM Chest Portable Regino Smalls; Auth (China lopez) Notes:(Chest Portable) Reason For Exam: Shortness of BreathRESULT: Chest Portable Chest Portable Hx of Present Illness: Shortness of breath and chest pain for 1 week; Reason: Shortness of Breath; Clinical Question(s): CHF COMPARISON: None. FINDINGS: LINES AND TUBES: None. LUNGS AND PLEURA: Clear lungs. Central pulmonary vascular congestion without overt interstitial edema. No pleural effusion. No pneumothorax. HEART, MEDIASTINUM AND EVERT: Mild prominence of the cardiac silhouette. BONES AND SOFT TISSUES: No acute abnormality. IMPRESSION: Pulmonary vascular congestion without overt interstitial edema. WSN: [id number] Ordering Physician: Mercedes Fontanez Dictated By: Kenyatta Carrillo MD Dictated Date/Time: 02/02/21 11:18 p Reviewed By: Kenyatta Carrillo MD Signed By: Kenyatta Carrillo MD Signed Date/Time: 02/02/21 11:18 pm Transcribed By: ALEXIS Transcribed Date/Time: 02/02/21 11:16 pm Vital Signs Most recent to oldest 1 2 3 [Reference Range]: Oxygen Saturation [94-100 100 % 98 % 98 % %] (02/05/21 11:31 AM) (02/05/21 7:38 AM) (02/05/21 3:53 AM) Pulse Rate [55-90 bpm] 84 bpm 95 bpm 91 bpm (02/05/21 12:46 PM) *H* *H* (02/05/21 11:31 AM) (02/05/21 10 :38 AM) Blood Pressure 143/78 mm Hg 172/93 mm Hg 154/81 mm Hg [90-138/55-84 mm Hg] *H* *H* *H* (02/05/21 12:46 PM) (02/05/21 11:31 AM) ( 1 10:38 AM) Respiratory Rate [16-30 18 br/min 16 br/min 18 br/mi n br/min] (02/05/21 2:48 PM) (02/05/21 11:39 AM) (02/05/21 11:31 AM) Temperature [96.8-100.4 97.4 DegF 97.8 DegF 98.0 Deg F DegF] (02/05/21 11:31 AM) (02/05/21 7:38 AM) (02/05/21 3:53 AM) Liters per Minute 1 L/min 2 L/min 2 L/min (02/04/21 7:41 AM) (02/03/21 7:37 PM) (02/03/21 5: 38 PM) Mode of Delivery (Oxygen) Room air Room air Room a ir (02/05/21 11:31 AM) (02/05/21 7:38 AM) (02/05/21 3:53 AM) Blood pressure sites Arm, left Arm, left Arm, left (02/05/21 11:31 AM) (02/05/21 7:38 AM) (02/05/21 3:53 AM) Temperature Route Oral Oral Oral (02/05/21 11:31 AM) (02/05/21 7:38 AM) (02/05/21 3:53 AM) Social History Social History Type Response Smoking Status Never smoker entered on: 03/28/17 Sex
--- OUTSIDE RECORDS SUMMARY | 2022-03-31 18:25 | XMS_ITS | Continuity of Care Document ---
:1990 Author Organization [facility] Address [address] [place] [address]- Care Team Providers Name Role Phone Not on Staff, PCP Primary Care Physician Unavailable Encounter [facility] Date(s): 02/24/20 - 04/09/20 [facility] [address] [place] [id number] Attending Physician: Phan PEREZ, Larissa [...] '943Admin Note: TD4 Admin Note: unknown exact [id number] Note: unknown exact date Medications aspirin 81 mg oral delayed release tablet 162 mg, 2, tablet, By Mouth, Daily, To begin taking at 12 weeks gestational age - Approx. Apr 14 2020, # 30 tablet, Refills 0, Tot. Refills 0, Maintenance, 03/05/20 14:49:00 EST, Route to Pharmacy Electronically, [facility]/pharmacy #[id number], Partial fill upo... Start Date: 03/05/20 Status: Orderedbedside commode bedside commode, See Instructions, # 1 each, Refills 0, Tot. Refills 0, Maintenance, DX DM E 11.9 using at bedside, 11/14/17 17:17:55 EDT, Compound Start Date: 11/14/17 Status: OrderedDEXCOM G6 SIFTER OPERATOR DEXCOM G6 SIFTER OPERATOR, See Instructions, # 1 each, Refills 0, Tot. Refills 0, Maintenance, Use to monitor blood lgucose levels [facility]: [id number] E10.9, 04/06/20 12:07:00 EST, Supply, 170, cm, 03/05/20 14:05:00 EST, Height, 82, kg, 03/05/20 14:53:00... Start Date: 04/06/20 Status: OrderedDEXCOM G6 SENSOR, 3 PACK DEXCOM G6 SENSOR, 3 PACK, See Instructions, # 3 each, Refills 3, Tot. Refills 3, Maintenance, Use tomonitor blood sugar. E10.9 [facility] [address]-07, 04/06/20 12:07:00 EST, Supply, 170, cm, 03/05/20 14:05:00 EST, Height, 82, kg, 03/05/20 14:53:00 EST... Start Date: 04/06/20 Status: OrderedDEXCOM G6 TRANSMITTER DEXCOM G6 TRANSMITTER, See Instructions, # 2 each, Refills 3, Tot. Refills 3, Maintenance, DEXCOM [id number], 04/06/20 12:07:00 EST, Supply, 170, cm, 03/05/20 [...] type 2(Confirmed)1 Active Hypertension(Confirmed) Active Care Coordination [facility], [place] Active Jeanne, CC (Confirmed) delivery(Confirmed) Active delivery(Confirmed) Active 1Not seem at [facility] since 08/12/2016. Multiple no show in our center. She is seen by other provider Dr Matt Gutierrez by pharmacy records. Social History Social History Type Response Smoking Status Never smoker entered on: 03/28/17 Sex
--- OUTSIDE RECORDS SUMMARY | 2022-03-31 18:25 | XMS_ITS | Continuity of Care Document ---
:1990 Author Organization [facility] Address [address] [place] [address]- Care Team Providers Name Role Phone Chirag CARLSON, Abdon Primary Care Physician Encounter [facility] Date(s): 03/29/22 - 03/30/[address] [address]- Encounter Diagnosis Headache (Final) - 03/30/22 Discharge Disposition: A-D/C Home Attending Physician: Jose Luis CARLSON, Rosemarie Clemente Admitting Physician: Jose Luis CARLSON, Rosemarie Clemente Referring Physician: Not on Staff, Referring MD [...] '943Admin Note: TD4 Admin Note: unknown exact [id number] Note: unknown exact date Medications acetaminophen 325 mg oral capsule 2 capsule = 650 mg, By Mouth, Every 4 hours, PRN as needed for pain, # 90 capsule, 0 Refills, Acute 03/31/23 8:01:00 EST, 03/30/22 8:01:00 EST, Capsule, [facility]/pharmacy #[id number], Partial fill upon patient request if the prescription is for a schedule II opi... Start Date: 03/30/22 Stop Date: 03/31/23 Status: OrderedAlbuterol (Eqv-ProAir HFA) 90 mcg/inh inhalation aerosol 2 puffs, Inhalation, Every 4 hours, Maintenance, 03/25/22 22:43:00 EST, Partial fill upon patient request if the prescription is for a schedule II opioid drug. Start Date: 03/25/22 Status: OrderedamLODIPine 5 mg oral tablet 5 mg, 1, tablet, By Mouth, Daily, # 30 tablet, Refills 0, Tot. Refills 0, Maintenance, 03/29/22 12:12:00 EST, Route to Pharmacy Electronically, [facility]/pharmacy #[id number], Partial fill upon patient request if the prescription is for a schedule II opioid drug.... Start Date: 03/29/22 Status: OrderedAspirin Low Dose 81 mg oral delayed release tablet 2 tablet = 162 mg, By Mouth, Daily, Maintenance, 02/13/22 11:23:00 EST, CR Tablet, ; Start Date: 02/13/22 Status: OrderedCoreg 25 mg oral tablet 25 mg, 1, tablet, By Mouth, 2 times a day, # 60 tablet, Refills 0, Tot. Refills 0, Maintenance, 03/29/22 12:11:00 EST, Route to Pharmacy Electronically, [facility]/pharmacy #[id number], Partial fill upon patient request if the prescription is for a schedule II opi... Start Date: 03/29/22 Status: OrderedCrestor 5 mg oral tablet 1 tablet = 5 mg, By Mouth, Daily, # 30 tablet, 0 Refills, Maintenance, 01/19/22 13:30:00 EST, Tablet, [facility]/pharmacy #[id number], Partial fill upon patient request if the prescription is for a schedule II opioid drug., 160, cm, 01/19/22 8:55:00 EST, Height, 9... Start Date: 01/19/22 Status: Ordereddiclofenac 1% topical gel = 2 Gm, Topically, 4 times a day, # 240 Gm, 0 Refills, Maintenance, 03/30/22 8:01:00 EST, Gel, [facility]/pharmacy #[id number], Partial fill upon patient request if the prescription is for a schedule II opioid drug., 168, cm, 03/29/22 10:53:00 EST, Height, 87.4, k... Start Date: 03/30/22 Status: OrderedFlonase 50 mcg/inh nasal spray 1 sprays, Nares, Both, 2 times a day, # 16 Gm, 0 Refills, Maintenance, 03/10/22 13:15:00 EST, [place], Partial fill upon patient request if the prescription is for a schedule IIopioid drug., 1 sprays Nares, Both 2 times a day,... Start Date: 03/10/22 Status: OrderedLevemir FlexTouch 100 units/mL subcutaneous solution = 8 units, Subcutaneous Injection, Daily at bedtime, (NOT TAKING & HASN'T IN MONTHS), # 10 mL, 0Refills, Maintenance, 03/10/22 13:13:00 EST, Injection, [facility], Partial fill upon patient request if the prescription is for a schedule... Start Date: 03/10/22 Status: OrderedNIFEdipine 30 mg oral tablet, extended release 30 mg, 1, tablet, By Mouth, Daily, # 30 tablet, Refills 0, Tot. Refills 0, Maintenance, 03/10/22 13:15:00 EST, Route to Pharmacy Electronically, [facility], Partial fill upon patient request if the prescription is for a schedule II opioi... Start Date: 03/10/22 Stop Date: 04/09/22 Status: OrderedNovoLOG FlexPen 100 units/mL injectable solution 11-12 UNITS, Subcutaneous Injection, 3 times a day before meals, (NOT TAKING & HASN'T IN MONTHS), # 10 mL, 0 Refills, Maintenance, 03/10/22 13:12:00 EST, Injection, [facility], Partial fill upon patient request if the prescription is for... Start Date: 03/10/22 Status: Orderedondansetron 4 mg oral tablet 1 tablet = 4 mg, By Mouth, Every 8 hours, PRN Nausea & Vomiting, # 12 tablet, 0 Refills, Maintenance, 03/10/22 13:16:00 EST, Tablet, [facility], Partial fill upon patient [...] Dry Weight Start Date: 03/10/22 Status: OrderedPen [place], 31 G x 5 mm BD Ultra [...] Migraine5 Confirmed Active Care Coordination Confirmed Active [facility], Hakan Angel, CC 1Managed by PCP. WEll controlled.2Self-manages. States currently stable. No medications.3Not seem at [facility] since 08/12/2016. Multiple no show in our center. She is seen by other provider Dr Matt Gutierrez by pharmacy records.4Managed by [id number] by PCP with Tylenol Results Radiology Reports Exam Date Time Procedure Performing Provider Status 03/30/22 12:11 AM Chest 2 Views Frontal and Lat Marixa Kirkpatrick ; Nicol (Verified) Notes:(Chest 2 Views Frontal and Lat) Reason For Exam: Shortness of Breath RESULT: Chest 2 Views Frontal and Lat Chest 2 Views Frontal and Lat Hx of Present Illness: pt reports pain to the entire backside of her body from the backof her head all the way down to her legs and that she feels tremulous. Was just discharged from the hospital today.; Reason: Shortness of Breath; Clinical Question(s): CHF COMPARISON: 03/25/2022 FINDINGS: LINES AND TUBES: None. LUNGS AND PLEURA: Clear lungs. Normal pulmonary vascularity. No pleural effusion. No pneumothorax. HEART, MEDIASTINUM AND EVERT: Stable mild enlargement of the cardio/cardiac silhouette. Normal mediastinal and hilar contour. BONES AND SOFT TISSUES: No acute abnormality. Mild elevation of the right hemidiaphragm. IMPRESSION: No acute abnormality. Resolution of the changes of congestive failure seen on the prior exam. WSN: [id number] Ordering Physician: Maria Dolores Hess Dictated By: Landen Ch MD Dictated Date/Time: 03/30/22 8:04 am Reviewed By: Landen Ch MD Signed By: Landen Ch MD Signed Date/Time: 03/30/22 8:04 am Transcribed By: ALEXIS Transcribed Date/Time: 03/30/22 8:01 am Vital Signs Most recent to oldest [Reference 1 2 3 Range]: Oxygen Saturation [94-100 %] 100 % 100 % 100 % (03/30/22 8:23 AM) (03/30/22 5:00 AM) (03/30/22 1:59 A M) Pulse Rate [55-90 bpm] 95 bpm 93 bpm 91 bpm *H* *H* *H* (03/30/22 8:23 AM) (03/30/22 5:00 AM) (03/30/22 1:59 A M) Blood Pressure [90-138/55-84 mm 159/87 mm Hg 154/94 mm Hg 143/90 mm Hg Hg] *H* *H* *H* (03/30/22 8:23 AM) (03/30/22 5:00 AM) (03/30/22 1:59 A M) Respiratory Rate [16-30 br/min] 18 br/min (03/29/22 7:13 PM) Temperature [96.8-100.4 DegF] 98.7 DegF 99.0 DegF 98 .2 DegF (03/30/22 8:23 AM) (03/30/22 5:00 AM) (03/30/22 1:20 A M) Mode of Delivery (Oxygen) Room air Room air Room a ir (03/30/22 8:23 AM) (03/30/22 5:00 AM) (03/29/22 7:13 P M) Blood pressure sites Arm, right Arm, right Arm, right (03/30/22 8:23 AM) (03/30/22 5:00 AM) (03/30/22 1:59 A M) Temperature Route Oral Oral Oral (03/30/22 8:23 AM) (03/30/22 5:00 AM) (03/30/22 1:20 A M) Social History Social History Type Response Smoking Status Never (less than 100 in life time) entered on: 08/22/21 Sex EKG study Event Display: ECG 12-Lead Authored Date: Please click on pdf link to open report Event Display: ECG 12-Lead Authored Date: Ventricular Rate: 83 BPM Atrial Rate: 83 BPM P-R Interval: 156 ms QRS Duration: 134 ms Q-T Interval: 458 ms QTC Calculation(Bazett): 538 ms P [place]: 51 degrees R [place]: 3 degrees T [place]: 22 degrees Normal sinus rhythm Possible Left atrial enlargement Right bundle branch block Abnormal ECG When compared with ECG of 27-MAR-2022 08:46, T wave inversion no longer evident in Anterior leads Confirmed by MAXWELL LÓPEZ ([id number]) on 03/30/2022 2:05:06 PM [place]: MAXWELL LÓPEZ Note Erin Loya DO: PERFORM Event Display: Patient Education Leaflets Authored Date: [id number] Migraine Headache ?? [id number] Migraine Headache A migraine headache is an often severe type of headache. It's different from other types of headaches in that symptoms other than pain occur with it. For instance, a classic migraine headache means visual symptoms (or aura) such as flashes of light, blind spots, or other vision changes, warn you a headache is coming on. Nausea and vomiting, lightheadedness, sensitivity to light or sound, and other visual disturbances are common migraine symptoms.??The pain may last from a few hours to several days.It's not clear why migraines occur, but certain factors called triggers can raise the risk of havinga migraine attack.??A migraine may be triggered by emotional stress??or depression, or by hormone tanya nges during the menstrual cycle. Other triggers include certain control pills, overuse of migraine medicines, alcohol or caffeine, and foods with tyramine, such as aged cheese and wine. Eyestrain, weather changes, missed meals,??or too little or too much sleep can also trigger a migraine. Home care Follow these tips when taking care of yourself at home: ??? Don???t drive yourself home if you weregiven pain medicine for your headache or are having visual symptoms. Instead, have someone else drive you home. Try to sleep when you get home. You should feel much better when you wake up. ??? Cold can help ease migraine symptoms. Put an ice pack wrapped in a thin towel on your forehead or at the base of your skull. Put heat on the back of your neck to help ease any neck spasm. ??? Drink only clear liquids or eat a light diet until your symptoms get better. This will help you prevent nausea and vomiting. ?? How to prevent migraines Pay attention to what seems to trigger your headache. Try to stay away from the triggers when you can. If you have headaches often, consider keeping a headache diary. In it, write down what you were doing, feeling, or eating in the hours before each headache. Show this to your healthcare provider to help find the cause of your headaches. If stress seems to be a trigger for your headaches, figure out what is causing stress in your life.Learn new ways to handle your stress. Ideas include regular exercise, biofeedback, self-hypnosis, yoga, and meditation. Talk with your provider to find out more information about managing stress. Many books and digital media are also available on this subject. Tyramine is a substance found in many foods. It can trigger a migraine in some people. These foods contain tyramine: ??? Chocolate ??? Yogurt ??? All cheeses, but especially aged cheeses ??? Smoked or pickled fish and meat, including herbert, caviar, bologna, pepperoni, and salami ??? Liver ??? Avocados ??? Bananas ??? Figs ??? Raisins ??? Red wine Try staying away from these foods for 1 to 2 months to see if you have fewer headaches. ?? How to treat future headaches ??? Take time out at the first sign of a headache, if possible. Find a quiet, dark, comfortable place to sit or lie down. Let yourself relax or sleep. ??? Put an ice packwrapped in a thin towel on your forehead or on the area of greatest pain. A heating pad and massage may help if you are having a muscle spasm and tightness in your neck. ??? If you have been prescribeda medicine to stop a migraine headache, use this at the first warning sign of the headache for best results. First signs may be an aura or pain. ??? If you have been prescribed a medicine to prevent the headaches, it's important to take the medicine as directed. Many of these medicines may take a few weeks to start preventing headaches, so it's important to not give up on them right away. If you continue to have just as many headaches after taking these medicines for a while, talk with your healthcare provider to see if the dose needs to be changed or if a different medicine is advised. ??? If you need to take medicine often for your migraine, talk with your provider about other ways to prevent your headaches. ?? Follow-up care Follow up with your healthcare provider, or as advised. Talk with your provider if you have frequent headaches. They can figure out a treatment plan. Ask if you can have medicine to take at home the next time you get a bad headache. This may keep you from having to visit the emergency department in the future. You may need to see a headache specialist (neurologist) if you continue to have headaches. ?? When to get medical care Call your healthcare provider right away??if any of these occur: ??? Your head pain gets worse, or doesn???t get better within 24 hours ??? You can???t keep liquids down (repeated vomiting) ??? Pain in your sinuses, ears, or throat ??? Fever of 100.4?? F (38?? C) or higher, or as advised by your provider ??? Stiff neck ??? Extreme drowsiness, confusion, or fainting ??? Dizziness, or dizziness with spinning sensation (vertigo) ??? Weakness or trouble feeling in an arm or leg, or on one side of your face ??? Trouble talking or seeing ?? Last Reviewed Date: 2021 ?? [id number] [employer]. All rights reserved. This information is not intended as a substitute for professional medical care. Always follow your healthcare professional's instructions. ??BHSPowerscribe , CIS S: TRANSCRIBE Landen Ch MD: VERIFY Event Display: Result: Authored Date: [id number] Chest 2 Views Frontal and Lat Hx of Present Illness: pt reports pain to the entire backside of her body from the backof her head all the way down to her legs and that she feels tremulous. Was just discharged from the hospital today.; Reason: Shortness of Breath; Clinical Question(s): CHF COMPARISON: 03/25/2022 FINDINGS: LINES AND TUBES: None. LUNGS AND PLEURA: Clear lungs. Normal pulmonary vascularity. No pleural effusion. No pneumothorax. HEART, MEDIASTINUM AND EVERT: Stable mild enlargement of the cardio/cardiac silhouette. Normal mediastinal and hilar contour. BONES AND SOFT TISSUES: No acute abnormality. Mild elevation of the right hemidiaphragm. IMPRESSION: No acute abnormality. Resolution of the changes of congestive failure seen on the prior exam. WSN: [id number] Ordering Physician: Maria Dolores Hess Dictated By: Landen Ch MD Dictated Date/Time: 03/30/22 8:04 am Reviewed By: Landen Ch MD Signed By: Landen Ch MD Signed Date/Time: 03/30/22 8:04 am Transcribed By: ALEXIS Transcribed Date/Time: 03/30/22 8:01 am Patient Care team information Care Team [...] Care Nurse Name: Keira Desai RN Position: [facility] RN Member Role: Primary Care Nurse Name: Gomez Moseley RN Position: [facility] RN Supv Member Role: Primary Care Nurse Name: Vashti Bruce RN Position: [facility] RN Member Role: Primary Care Nurse Name: Raghav Granger Position: [facility] RN Member Role: Primary Care Nurse Name: Cassy Caraballo RN Position: [facility] RN Member Role: Primary Care Nurse Name: Jodi Carrillo RN Position: [facility] RN Member Role: Primary Care Nurse Name: Abbey Shelley RN Position: [facility] RN Member Role: Primary Care Nurse Name: Larissa Barnett RN Position: [facility] RN Member Role: Primary Care Nurse Name: Inna Beckwith RN Position: [facility] RN Member Role: Primary Care Nurse Name: Cady Araya RN Position: [facility] RN Member Role: Primary Care Nurse Name: Abdon Beard MD Position: [facility] Outreach Member Role: PCP Address: Address: [address] [place] [id number]- Name: Anuradha Frank Position: [facility] RN Member Role: Primary Care Nurse Name: Michele Blancas DO Position: [facility] Renal MD Member Role: Lifetime Consulting Physician Address: Address: [address] [place], [place] [address] [place] [address]- Name: María Acosta RN Position: [facility] RN Member Role: Primary Care Nurse Name: Treasure Gilbert RN Position: [facility] RN Supv Member Role: Primary Care Nurse Name: Stefany Grajeda RN Position: [facility] RN Member Role: Primary Care Nurse Name: Farzana Sevilla Position: [facility] RN Member Role: Primary Care Nurse Name: Javan Pimentel MD Position: [facility] Renal MD Member Role: Lifetime Consulting Physician Address: Address: [address] [place] [address] [address] [facility] [place] [address]- Name: Heather Pal RN Position: [facility] RN Member Role: Primary Care Nurse Name: Jody Rasmussen RN Position: [facility] RN Member Role: Primary Care Nurse Name: Luisa Devine RN Position: [facility] RN Member Role: Primary Care Nurse Name: Mau Hazel RN Position: [facility] RN Member Role: Primary Care Nurse Name: Pedro Taylor RN Position: [facility] RN Member Role: Primary Care Nurse Name: Charlotte Singletary RN Position: [facility] OB RN Member Role: Primary Care Nurse Name: Alison Jose RN Position: [facility] RN Member Role: Primary Care Nurse Name: Kendall Coleman RN Position: [facility] RN Member Role: Primary Care Nurse Name: Nancy Fair RN Position: [facility] SN RN Member Role: Primary Care Nurse Name: Sofie Reed Position: [facility] RN Member Role: Primary Care Nurse Name: Kasia Vital RN Position: [facility] RN Member Role: Primary Care Nurse Name: Fernando Siddiqi MD Position: [facility] Renal MD Member Role: Lifetime Consulting Physician Address: Address: [address] [place] [address] [facility] [address] Name: Kaelyn Lewis RN Position: [facility] RN Member Role: Primary Care Nurse Name: Lianne Byrnes RN Position: [facility] RN Member Role: Primary Care Nurse Name: Tona Jacome LPN Position: [facility] RN Member Role: Primary Care Nurse Name: Tatiana Madrigal RN Position: [facility] RN Member Role: Primary Care Nurse Name: Jose Callejas RN Position: [facility] RN Member Role: Primary Care Nurse Name: Ashely Riley Position: [facility] RN Member Role: Primary Care Nurse Name: Erin Loya DO Position: [facility] Resident Member Role: ED Resident Address: Address: [address] [place] [address]- Name: Angely Akbar RN Position: [facility] ED RN W/OE and Tasks Member Role: Patient Care Provider Name: Rosemarie Amaya MD Position: [facility] ED Medicine MD Member Role: ED Attending Physician Address: Address: [address] [place] [address]- Name: Jose Manuel Varner Position: [facility] ED TA [facility] Care Team Related PersonsName: ADI MCFARLANDO Address: home [address] [place] [address] Name: REJI TAYLOR Address: home [address] [place] [address] Name: JEFF CHAPMAN Address: [id number] Address: home [address] [address] Name: ELI BONILLA Address: [address] [address]
--- OUTSIDE RECORDS SUMMARY | 2022-03-31 18:25 | XMS_ITS | Continuity of Care Document ---
:1990 Author Organization [facility] Address [address] [place] [address]- Care Team Providers Name Role Phone Abdon Beard MD Primary Care Physician Encounter [facility] Date(s): 08/31/21 - 12/02/21 [facility] [address] [place] [id number] Attending Physician: Abdon Beard MD Admitting Physician: Abdon Beard MD Allergies, Adverse Reactions, [...] '943Admin Note: TD4 Admin Note: unknown exact [id number] Note: unknown exact date Medications Alcohol Pads [...] 08/24/21 11:43:00 EDT, Route to Pharmacy Electronically, [facility]/pharmacy #[id number], Partial fill upon patient request ifthe prescription is for a schedule II opioid drug... Start Date: 08/24/21 Status: Orderedaspirin 81 mg oral delayed release tablet 2 tablet = 162 mg, By Mouth, Daily, # 90 tablet, 3 Refills, Maintenance, 10/05/21 12:28:00 EDT, CR Tablet, [facility]/pharmacy #[id number], Partial [...] 0 Refills, Maintenance, 08/24/21 11:26:00 EDT, Injection, [facility]/pharmacy #[id number], Partial fill [...] Weight Start Date: 08/24/21 Status: OrderedPen [place], 30 G x 8 mm BD Ultra [...] Refills, Maintenance, 08/24/21 11:27:00 EDT, Chew Tablet, [facility]/pharmacy #[id number], Partial [...] 11/17/21 16:18:00 EDT, [facility] I Confirmed Active Care Coordination Confirmed Active [facility], Hakan Angel, CC 1Managed by PCP. WEll controlled.2Self-manages. States currently stable. No medications.3Not seem at [facility] since 08/12/2016. Multiple no show in our center. She is seen by other provider Dr Matt Gutierrez by pharmacy records.4Managed by [id number] by PCP with Tylenol Social History Social History Type Response Smoking Status Never (less than 100 in life time) entered on: 08/22/21 Sex Patient Care team information PersonnelName: Abdon Beard MD Address: Address: [address] [place] [address]- [place]
--- OUTSIDE RECORDS SUMMARY | 2022-03-31 18:25 | XMS_ITS | Continuity of Care Document ---
:1990 Author Organization [facility] Address [address] [place] [id number]- Care Team Providers Name Role Phone Chirag CARLSON, Abdon Primary Care Physician Encounter [facility] Date(s): 04/01/21 - 04/02/[address] [address]- Encounter Diagnosis Hyperkalemia (Final) - 04/02/21 Discharge Disposition: A-D/C AMA Attending Physician: Monserrat Hassan MD Admitting Physician: Ankush Sheridan MD Referring [...] '943Admin Note: TD4 Admin Note: unknown exact [id number] Note: unknown exact date Medications amLODIPine 10 mg oral tablet 10 mg, 1, tablet, By Mouth, Daily, # 30 tablet, Refills 5, Tot. Refills 5, Maintenance, 03/31/21 14:26:00 EST, Route to Pharmacy Electronically, [facility]/pharmacy #[id number], Partial fill upon patient request ifthe prescription is for a schedule II opioid drug... Start Date: 03/31/21 Status: Orderedcephalexin monohydrate 500 mg oral capsule 1 capsule = 500 mg, By Mouth, Every 12 hours, TO START ON 03/12/21, TO PREVENT INFECTION FROM RETURNING, # 180 capsule, 0 Refills, Acute 06/10/21 15:59:00 EDT, 02/28/21 15:59:00 EST, Capsule, [facility], Partial fill upon patient request... Start Date: 02/28/21 Stop Date: 06/10/21 Status: Ordereddoxycycline monohydrate 100 mg oral tablet = 100 mg, By Mouth, Daily at bedtime, Chronic suppressive therapy. Take daily at bedtime or 6 hours after iron tablet, # 30 tablet, 1 Refills, Maintenance, 03/26/21 16:17:00 EST, Tablet, [facility]/pharmacy #[id number], Partial fill upon patient request [...] type 2(Confirmed)1 Active Hypertension(Confirmed) Active Care Coordination [facility], Hakan Angel, CC (Confirmed) delivery(Confirmed) Active delivery(Confirmed) Active 1Not seem at [facility] since 08/12/2016. Multiple no show in our center. She is seen by other provider Dr Matt Gutierrez by pharmacy records. Results Radiology Reports Exam Date Time Procedure Performing Provider Status 04/01/21 4:05 PM Chest 2 Views Frontal and Lat Do , Mario; Au th (Verified) Notes:(Chest 2 Views Frontal and Lat) Reason For Exam: Chest Pain;Other:RESULT: Chest 2 Views Frontal and Lat Chest 2 Views Frontal and Lat History of Present Illness: Stabbing chest pain. Reason: Chest Pain COMPARISON: 03/30/2021, 03/28/2021. FINDINGS: LINES AND TUBES: None. LUNGS AND PLEURA: Low lung volumes bilaterally, otherwise clear lungs. Normal pulmonary vascularity. No pleural effusion. No pneumothorax. HEART, MEDIASTINUM AND EVERT: Heart is normal in size. Normal upper mediastinal and hilar contour. BONES AND SOFT TISSUES: No acute abnormality. IMPRESSION: No acute abnormality. I have personally reviewed the images and I agree with this report. WSN: [id number] Ordering Physician: Ksenia Rivas Dictated By: Panfilo Mathis MD Dictated Date/Time: 04/01/21 4:34 pm Reviewed By: Akil Stern MD Signed By: Akil Stern MD Signed Date/Time: 04/01/21 4:39 pm Transcribed By: ALEXIS Transcribed Date/Time: 04/01/21 4:11 pm Vital Signs Most recent to oldest 1 2 3 [Reference Range]: Height 168 cm 168 cm 168 cm (04/02/21 5:11 PM) (04/02/21 11:19 AM) (04/02/21 7:48 AM) Weight 82 kg 82 kg (04/01/21 11:22 PM) (04/01/21 3:17 PM) Oxygen Saturation [94-100 %] 100 % 100 % 100 % (04/02/21 5:11 PM) (04/02/21 11:19 AM) (04/02/21 7:48 AM) Pulse Rate [55-90 bpm] 100 bpm 95 bpm 91 bpm *H* *H* *H* (04/02/21 5:11 PM) (04/02/21 11:19 AM) (04/02/21 7:48 AM) Body Mass Index [18.5-24.99] 29.05 *H* (04/01/21 3:17 PM) Blood Pressure [90-138/55-84 mm 127/98 mm Hg 162/110 mm Hg 161/104 mm Hg Hg] (04/02/21 5:11 PM) *H* *H* (04/02/21 11:19 AM) (04/02/21 7:48 A M) Respiratory Rate [16-30 br/min] 18 br/min 18 br/min 18 br/min (04/02/21 5:11 PM) (04/02/21 5:11 PM) (04/02/21 11:19 AM) Temperature [96.8-100.4 DegF] 97.9 DegF 98.2 DegF 97 .5 DegF (04/02/21 5:11 PM) (04/02/21 11:19 AM) (04/02/21 7:48 AM) Mode of Delivery (Oxygen) Room air Room air Room a ir (04/02/21 5:11 PM) (04/02/21 11:19 AM) (04/02/21 7:48 AM) Blood pressure sites Arm, left Arm, left Arm, right (04/02/21 11:19 AM) (04/02/21 7:48 AM) (04/02/21 3:58 AM) Temperature Route Oral Oral Oral (04/02/21 5:11 PM) (04/02/21 11:19 AM) (04/02/21 7:48 AM) Dry Weight 82 kg 82 kg (04/01/21 11:22 PM) (04/01/21 3:17 PM) Social History Social History Type Response Smoking Status Never smoker entered on: 03/28/17 Sex
--- OUTSIDE RECORDS SUMMARY | 2022-03-31 18:25 | XMS_ITS | Continuity of Care Document ---
:1990 Author Organization [facility] Address [address] [place] [phone]- Care Team Providers Name Role Phone Not on Staff, PCP Primary Care Physician Unavailable Encounter [facility] Date(s): 06/17/20 - 07/17/20 [facility] [address] [place] [address] Attending Physician: Michael Marquez Admitting Physician: [...] Whl Cell/Tet(oldterm) 88 Given Diphth/Pertussis, Whl Cell/Tet(oldterm) 8/14/89 Given 1Admin Note: VIS 03/21/11 (given)2Admin Note: hx varicella '943Admin Note: TD4 Admin Note: unknown exact [id number] Note: unknown exact date Medications aspirin 81 mg oral delayed release tablet 162 mg, 2, tablet, By Mouth, Daily, To begin taking at 12 weeks gestational age - Approx. Apr 14 2020, # 30 tablet, Refills 0, Tot. Refills 0, Maintenance, 03/05/20 14:49:00 EST, Route to Pharmacy Electronically, [facility]/pharmacy #[id number], Partial fill upo... Start Date: 03/05/20 Status: Orderedbedside commode bedside commode, See Instructions, # 1 each, Refills 0, Tot. Refills 0, Maintenance, DX DM E 11.9 using at bedside, 11/14/17 17:17:55 EDT, Compound Start Date: 11/14/17 Status: OrderedDEXCOM G6 ELEMENTARY SCIENCE TEACHER DEXCOM G6 ELEMENTARY SCIENCE TEACHER, See Instructions, # 1 each, Refills 0, Tot. Refills 0, Maintenance, Use to monitor blood lgucose levels [facility]: [id number] E10.9, 04/06/20 12:07:00 EST, Supply, 170, cm, 03/05/20 14:05:00 EST, Height, 82, kg, 03/05/20 14:53:00... Start Date: 04/06/20 Status: OrderedDEXCOM G6 SENSOR, 3 PACK DEXCOM G6 SENSOR, 3 PACK, See Instructions, # 3 each, Refills 3, Tot. Refills 3, Maintenance, Use tomonitor blood sugar. E10.9 [facility] [id number], 07/16/20 14:20:00 EDT, Supply Start Date: 07/16/20 Status: OrderedDEXCOM G6 TRANSMITTER DEXCOM G6 TRANSMITTER, See Instructions, # 1 each, Refills 3, Tot. Refills 3, Maintenance, DEXCOM [id number], 07/16/20 14:20:00 EDT, Supply Start Date: 07/16/20 [...] 5 Refills, Maintenance, 06/17/20 13:05:00 EDT, Tablet, [facility]/pharmacy #[id number], Partial fill upon patient request if the prescription is for a schedule II opi... Start Date: 06/17/20 Status: OrderedLevemir FlexTouch 100 units/mL subcutaneous solution See Instructions, Take 40 units once daily. E11.65, # 30 mL, 5 Refills, Maintenance, 02/18/20 16:48:00 EST, [facility]/pharmacy #[id number], Stop Lantus. Start Levemir., [...] type 2(Confirmed)1 Active Hypertension(Confirmed) Active Care Coordination [facility], Hakan Active Angel, CC (Confirmed) delivery(Confirmed) Active delivery(Confirmed) Active 1Not seem at [facility] since 08/12/2016. Multiple no show in our center. She is seen by other provider Dr Matt Gutierrez by pharmacy records. Social History Social History Type Response Smoking Status Never smoker entered on: 03/28/17 Sex
--- OUTSIDE RECORDS SUMMARY | 2022-03-31 18:25 | XMS_ITS | Continuity of Care Document ---
:1990 Author Organization [facility] Address [address] [place] [phone]- Care Team Providers Name Role Phone Not on Staff, PCP Primary Care Physician Unavailable Encounter [facility] Date(s): 02/05/20 - 03/06/20 [facility] [address] [place] [id number] Attending Physician: Michael Marquez Admitting Physician: Michael [...] '943Admin Note: TD4 Admin Note: unknown exact [id number] Note: unknown exact date Medications aspirin 81 mg oral delayed release tablet 162 mg, 2, tablet, By Mouth, Daily, To begin taking at 12 weeks gestational age - Approx. Apr 14 2020, # 30 tablet, Refills 0, Tot. Refills 0, Maintenance, 03/05/20 14:49:00 EST, Route to Pharmacy Electronically, [facility]/pharmacy #[id number], Partial fill upo... Start Date: 03/05/20 Status: [...] 5 Refills, Maintenance, 02/05/20 20:04:00 EST, Solution, [facility]/pharmacy #[id number], Partial fill upon [...] 03/05/20 14:48:00 EST, Route to Pharmacy Electronically, [facility]/pharmacy #[id number], Partial fill upon patient request if the prescription is for a s... Start Date: 03/05/20 Status: OrderedNovoLOG FlexPen 100 units/mL subcutaneous solution See Instructions, Max daily dose 50 units, per sliding scale. E11.65, # 30 mL, 5 Refills, Maintenance, 02/05/20 14:37:00 EST, Solution, [facility]/pharmacy #[id number], Partial fill upon patient request if the prescription is for a schedule II opioid drug., 170, c... Start Date: 02/05/20 Status: OrderedPrenatal Multivitamins with Folic Acid 1 mg oral tablet 1 tablet, By Mouth, Daily, # 90 tablet, 2 Refills, Maintenance, 03/05/20 14:51:00 EST, Tablet, [facility]/pharmacy #[id number], Partial fill upon patient request if the prescription is for a schedule II opioid drug., 1 tablet By Mouth Daily, 170, cm, 01/08/20 13:3... Start Date: 1/8/21 Status: OrderedTrulicity Pen 0.75 mg/0.5 mL subcutaneous [...] Active Hypertension(Confirmed) Active Care Coordination [facility], Hakan Active Jeanne, CC (Confirmed) delivery(Confirmed) Active delivery(Confirmed) Active 1Not seem at [facility] since 08/12/2016. Multiple no show in our center. She is seen by other provider Dr Matt Gutierrez by pharmacy records. Social History Social History Type Response Smoking Status Never smoker entered on: 03/28/17 Sex
--- OUTSIDE RECORDS SUMMARY | 2022-03-31 18:25 | XMS_ITS | Continuity of Care Document ---
:1990 Author Organization [facility] Address [address] [place] [address]- Care Team Providers Name Role Phone Chirag CARLSON, Abdon Primary Care Physician Encounter [facility] Date(s): 02/28/21 - 05/26/21 [facility] [address] [place] [id number] Attending Physician: Michele Jose MD Admitting Physician: Michele Jose MD Referring Physician: Abdon Beard MD Allergies, [...] '943Admin Note: TD4 Admin Note: unknown exact [id number] Note: unknown exact date Medications acetaminophen 325 [...] 03/31/21 14:26:00 EST, Route to Pharmacy Electronically, [facility]/pharmacy #[id number], Partial fill upon patient request ifthe prescription is for a schedule II opioid drug... Start Date: 03/31/21 Status: Orderedatorvastatin 40 mg oral tablet 1 tablet = 40 mg, By Mouth, Daily at bedtime, Follow-up with your primary care doctor for further refills., # 30 tablet, 1 Refills, Maintenance, 04/26/21 14:51:00 EST, Tablet, [facility],Partial fill upon patient request if the prescrip... Start Date: 04/26/21 Status: Orderedcyclobenzaprine 10 mg oral tablet 10 mg, 1, tablet, By Mouth, 3 times a day, # 15 tablet, Refills 0, Tot. Refills 0, Acute 05/27/21 13:51:00 EDT, 05/26/21 13:51:00 EDT, Route to Pharmacy Electronically, [facility], Partial fill upon patient request if the prescription is... Start Date: 05/26/21 Stop Date: 05/27/21 Status: OrderedDilaudid 2 mg oral tablet 1 tablet = 2 mg, By Mouth, Every 6 hours, PRN Pain , Severe, # 10 tablet, 0 Refills, Acute 05/27/21 13:51:00 EDT, 05/26/21 13:51:00 EDT, Tablet, [facility], Partial fill upon patient request if the prescription is for a schedule II opioi... Start Date: 05/26/21 Stop Date: 05/27/21 Status: Orderedduloxetine 30 mg oral enteric coated [...] Refills, Maintenance, 11/17/20 10:19:00 EDT, Tablet, [facility]/pharmacy #[id number], Partial fillupon patient request if the prescription is for a... Start Date: 11/17/20 Status: OrderedLasix 20 mg oral tablet 20 mg, 1, tablet, By Mouth, Daily, Follow-up with your primary care doctor for further refills., # 30 tablet, Refills 0, Tot. Refills 0, Maintenance, 04/26/21 14:52:00 EST, Route to Pharmacy Electronically, [facility], Partial fill upon... Start Date: 04/26/21 Status: OrderedLevemir FlexTouch 100 units/mL subcutaneous solution INJECT 43 UNITS SUBCUTANEOUSLY ONCE DAILY Start Date: 04/23/21 Status: Orderedlidocaine 5% topical film 1 patch, Topically, Daily, PRN Pain , Mild, remove after 12 hours, # 13 each, 0 Refills, Maintenance, 04/19/21 11:26:00 EST, Film, [facility]/pharmacy #[id number], Partial fill upon patient request if the prescription is for a schedule II opioid drug., 1 patch Top... Start Date: 04/19/21 Status: Orderedmetoprolol 25 mg oral tablet 25 mg, 1, tablet, By Mouth, 2 times a day, Follow-up with your primary care doctor for further refills., # 60 tablet, Refills 1, Tot. Refills 1, Maintenance, 04/26/21 14:52:00 EST, Route to Pharmacy Electronically, [facility], Partial fi... Start Date: 04/26/21 Status: Orderednitroglycerin 0.4 mg sublingual tablet 1 tablet = 0.4 mg, Sublingual, Every 5 minutes, PRN as needed for chest pain, not to exceed 3 doses/15 min--if pain persists, seek medical attention, # 25 tablet, 0 Refills, Maintenance, 03/31/21 14:26:00 EST, Tablet, [facility]/pharmacy #[id number], Partial fill... Start Date: 03/31/21 Status: OrderedNovoLOG [...] Obese class I(Confirmed) Active Care Coordination [facility], Hakan Active Jeanne, CC (Confirmed) delivery(Confirmed) Active delivery(Confirmed) Active 1Not seem at [facility] since 08/12/2016. Multiple no show in our center. She is seen by other provider Dr Matt Gutierrez by pharmacy records. Social History Social History Type Response Smoking Status Never (less than 100 in life time) entered on: 04/23/21 Sex
--- OUTSIDE RECORDS SUMMARY | 2022-03-31 18:25 | XMS_ITS | Continuity of Care Document ---
:1990 Author Organization [facility] Address [address] [place] [address]- Care Team Providers Name Role Phone Chirag CARLSON, Abdon Primary Care Physician Encounter [facility] Date(s): 11/15/21 - 11/17/[address] [address] Discharge Disposition: A-D/C Home Attending Physician: Chiki Alfaro MD Admitting Physician: Cosme Willis MD Referring Physician: Cosme Willis MD Allergies, Adverse Reactions, Alerts Substance Reaction Severity Status Zosyn1 angioedema Severe Active vancomycin2, 3 Tightness in throat Active morphine Itching Active 1Tolerates [id number] again Per chart: pt tolerated vanco on [...] '943Admin Note: TD4 Admin Note: unknown exact [id number] Note: unknown exact date Medications Alcohol Pads See Instructions, # 600 each, Refills 2, Tot. Refills 2, Maintenance, use as directed for Type 1 Diabetes Mellitus, 06/18/21 9:50:00 EDT, Supply, 167.6, cm, 06/18/21 8:09:00 EDT, Height, 75.8, kg, 06/09/21 11:38:00 EDT, Dry Weight Start Date: 06/18/21 Stop Date: 03/15/22 Status: OrderedamLODIPine 10 mg oral tablet 10 mg, Tablet, By Mouth, 11/17/21 9:00:00 EDT Start Date: 11/17/21 Stop Date: 11/17/21 Status: CompletedamLODIPine 10 mg oral tablet 10 mg, 1, tablet, By Mouth, Daily, # 90 tablet, Refills 3, Tot. Refills 3, Maintenance, 08/24/21 11:43:00 EDT, Route to Pharmacy Electronically, [facility]/pharmacy #[id number], Partial fill upon patient request ifthe prescription is for a schedule II opioid drug... Start Date: 08/24/21 Status: Orderedaspirin 81 mg oral delayed release tablet 2 tablet = 162 mg, By Mouth, Daily, # 90 tablet, 3 Refills, Maintenance, 10/05/21 12:28:00 EDT, CR Tablet, [facility]/pharmacy #[id number], Partial fill upon patient request if the [...] 0 Refills, Maintenance, 08/24/21 11:26:00 EDT, Injection, [facility]/pharmacy #[id number], Partial fill upon patient request if the prescription is fora schedule II opioid drug., 168, cm, 08/24/21 10:... Start Date: 08/24/21 Stop Date: 09/23/21 Status: Orderedmetoprolol 25 mg oral tablet 50 mg, Tablet, By Mouth, 11/17/21 9:00:00 EDT Start Date: 11/17/21 Stop Date: 11/17/21 Status: Completednitrofurantoin macrocrystals 100 mg oral capsule See Instructions, 1 capsule By Mouth twice daily x 7 days, # 14 each, 0 Refills, Acute 11/26/21 15:27:00 EDT, 10/28/21 15:26:00 EDT, [facility]/pharmacy #[id number], Partial fill upon [...] hours, PRN for Pain , Severe, Routine, 11/15/21 22:21:00 EDT Start Date: 11/15/21 Stop Date: 11/18/21 Status: DiscontinuedPeak Flow Meter (Adult) See Instructions, # 1 each, Maintenance, Use when wheezing or chest tightness. Call for peak flow less than 200., 08/24/21 15:17:00 EDT, Supply, 168, cm, 08/24/21 11:41:00 EDT, Height, 75.8, kg, 06/09/21 11:38:00 EDT, Dry Weight Start Date: 08/24/21 Status: OrderedPen [place], 30 G x 8 mm BD Ultra [...] Refills, Maintenance, 08/24/21 11:27:00 EDT, Chew Tablet, [facility]/pharmacy #[id number], Partial fill upon patient request if the prescription is for a schedule II opioid drug., 1 tablet Chew Daily, 168, cm, 08/24/21 10:36:0... Start Date: 08/24/21 Status: OrderedProAir HFA 90 mcg/inh inhalation aerosol See Instructions, PRN Wheezing/Shortness of Breath, Inhale 2 puff every 4 to 6 hours as needed, # 18Gm, 0 Refills, Maintenance, 08/24/21 11:43:00 EDT, Inhaler, [facility]/pharmacy #[id number], Partial fill upon [...] 11/17/21 16:18:00 EDT, Route to Pharmacy Electronically, [facility]/pharmacy #[id number], Partial fill upon [...] Active Obese class I(Confirmed) Active Care Coordination [facility] GONZALEZ Active Jeanne, CC (Confirmed) Pre-existing diabetes mellitus Active affecting , antepartum(Confirmed) Poor vision(Confirmed)6 Active 1Managed by PCP. WEll controlled.2Self-manages. States currently stable. No medications.3Not seem at [facility] since 08/12/2016. Multiple no show in our center. She is seen by other provider Dr Matt Gutierrez by pharmacy records.4Managed by [id number] by PCP with [id number], states sees shadows and has blurry vision. Last eye doctor appointment was several years ago. Vital Signs Most recent to oldest 1 2 3 4 [Reference Range]: Height 168 cm 168 cm 168 cm (11/17/21 3:18 PM) (11/17/21 11:06 AM) (11/17/21 7:34 AM) Weight 90.2 kg 90.2 kg 93.3 kg (11/17/21 9:40 AM) (11/17/21 9:29 AM) (11/15/21 4:19 PM) Oxygen Saturation 100 % 100 % 100 % [94-100 %] (11/17/21 3:18 PM) (11/17/21 11:06 AM) (11/17/21 7:34 AM) Pulse Rate [55-90 bpm] 74 bpm 72 bpm 79 bpm (11/17/21 3:18 PM) (11/17/21 11:06 AM) (11/17/21 8:25 AM) Body Mass Index 33.06 kg/m2 [18.5-24.99 kg/m2] *>HHI* (11/15/21 4:19 PM) Blood Pressure 131/82 mm Hg 126/67 mm Hg 118/72 mm Hg 118/72 mm Hg [90-138/55-84 mm Hg] (11/17/21 3:18 PM) (11/17/21 11:06 AM) (11/17/21 8:25 AM) (11/17/21 8:25 AM) Respiratory Rate 18 br/min 18 br/min 17 br/min [16-30 br/min] (11/17/21 3:18 PM) (11/17/21 3:00 PM) (11/17/21 11:06 A M) Temperature 97.7 DegF 97.7 DegF 97.8 DegF [96.8-100.4 DegF] (11/17/21 3:18 PM) (11/17/21 11:06 AM) (11/17/21 7:3 4 AM) Mode of Delivery Room air Room air Room air (Oxygen) (11/17/21 3:18 PM) (11/17/21 11:06 AM) (11/17/21 7:34 AM) Blood pressure sites Arm, left Arm, right Arm, left (11/17/21 3:18 PM) (11/17/21 11:06 AM) (11/17/21 7:34 AM) Temperature Route Oral Oral Oral (11/17/21 3:18 PM) (11/17/21 11:06 AM) (11/17/21 7:34 AM) Dry Weight 90.2 kg 93.3 kg (11/17/21 9:40 AM) (11/15/21 4:19 PM) Weight Obtained Via Standing scale Standing scale (11/17/21 9:40 AM) (11/17/21 9:29 AM) Dry Weight Obtained Standing scale Via (11/17/21 9:40 AM) Social History Social History Type Response Smoking Status Never (less than 100 in life time) entered on: 08/22/21 Sex Care Team PersonnelName: Abdon Beard MD [address]: [address] [place] [id number] [place]
--- OUTSIDE RECORDS SUMMARY | 2022-03-31 18:26 | XMS_ITS | Continuity of Care Document ---
:1990 Author Organization [facility] Address [address] [place] [phone]- Care Team Providers Name Role Phone Chirag CARLSON, Abdon Primary Care Physician Encounter [facility] Date(s): 11/23/21 - 01/06/22 [facility] [address] [place] [id number] Attending Physician: Tona Sevilla MD Admitting Physician: Tona Sevilla MD Referring Physician: Tona Sevilla MD Allergies, Adverse Reactions, Alerts Substance Reaction Severity Status morphine Itching Active Zosyn1 angioedema Severe Active vancomycin2, 3 Tightness in throat Active 1Tolerates vvvssohyu3Akbgivdzo again Per chart: pt tolerated vanco on [...] '943Admin Note: TD4 Admin Note: unknown exact [id number] Note: unknown exact date Medications Alcohol Pads [...] EDT, Route to Pharmacy Electronically, [facility]/pharmacy #[id number], Partial fill upon patient request if the prescriptio... Start Date: 12/13/21 Status: OrderedCoreg 25 mg oral tablet 50 mg, 2, tablet, By Mouth, 2 times a day, # 120 tablet, Refills 0, Tot. Refills 0, Maintenance, 12/13/21 14:16:00 EDT, Route to Pharmacy Electronically, [facility]/pharmacy #[id number], Partial fill upon patient request if the [...] EDT, Route to Pharmacy Electronically, [facility]/pharmacy #[id number], Partial fill upon patient request if the prescription is for a schedule II op... Start Date: 12/13/21 Status: OrderedLevemir FlexTouch 100 units/mL subcutaneous solution See Instructions, INJECT 8 UNITS SUBCUTANEOUSLY AT BEDTIME FOR 30 DAYS, # 15 Unknown, 0 Refills, Maintenance, 12/19/21 16:07:00 EDT, [id number], 168, cm, 12/13/21 12:57:00 EDT, Height, 90, [...] Dry Weight Start Date: 08/24/21 Status: OrderedPen [place], 30 G x 8 mm BD Ultra [...] Dr Matt Gutierrez by pharmacy records.4Managed by [id number] by PCP with Tylenol Social History Social History Type Response Smoking Status Never (less than 100 in life time) entered on: 08/22/21 Sex Patient Care team information Care Team PersonnelName: Anuradha Morris RN Position: S RN Member Role: Primary Care Nurse Name: Omega Gillespie RN Position: [facility] RN Member Role: Primary Care Nurse Name: Paty Kelly RN Position: S RN Member Role: Primary Care Nurse Name: Sonia Malone Position: S RN Member Role: Primary Care Nurse Name: Keira Desai RN Position: [facility] RN Member Role: Primary Care Nurse Name: Gomez Moseley RN Position: [facility] RN Supluis Member Role: Primary Care Nurse [...] S Outreach Member Role: PCP Address: Address: [address] [place] [address]- [place] Name: Michele Blancas DO Position: [facility] Renal MD Member Role: Lifetime Consulting Physician Address: Address: [address] [place], [place] [address] [place] [address]- [place] Name: María Acosta RN Position: [facility] RN Member Role: Primary Care Nurse Name: Heather Correa RN Position: [facility] RN Member Role: Primary Care Nurse Name: Janelle Hall RN Position: [facility] RN Member Role: Primary Care Nurse Name: Alison Howard RN Position: [facility] RN Member Role: Primary Care Nurse Name: Farzana Sevilla Position: S RN Member Role: Primary Care Nurse Name: Libertad Sim RN Position: S RN Member Role: Primary Care Nurse Name: Javan Pimentel MD Position: [facility] Renal MD Member Role: Lifetime Consulting Physician Address: Address: [address] [place] [address] [facility], [place] [address]- Name: Heather Pal RN [facility]: [facility] Member Role: Lifetime Consulting Physician Address: Address: [address] [place] [address] [facility] [place] [address]- Name: Lianne Byrnes RN Position: [facility] RN Member Role: Primary Care Nurse Name: Tona Jacome LPN Position: [facility] RN Member Role: Primary Care Nurse Name: Tatiana Madrigal RN Position: [facility] RN Member Role: Primary Care Nurse Care Team Related PersonsName: LEONOR MCFARLAND Address: home [address] [place] [address] Name: REJI TAYLOR Address: home [address] [place] [address] Name: JEFF CHAPMAN Address: [address] Address: [address] [address] [place] Name: ELI BONILLA
--- OUTSIDE RECORDS SUMMARY | 2022-03-31 18:26 | XMS_ITS | Continuity of Care Document ---
:1990 Author Organization [facility] Address [address] [place] [address]- Care Team Providers Name Role Phone Abdon Beard MD Primary Care Physician Encounter [facility] Date(s): 08/23/20 - 09/22/20 [facility] [address] [place] [id number] Attending Physician: Michael Marquez Admitting Physician: AdmMichael coyle Referring Physician: Admtr, Wade8 Allergies, Adverse Reactions, Alerts Substance Reaction Severity [...] Whl Cell/Tet(oldterm) 88 Given 1Admin Note: VIS 1/24/12 (given)2Admin Note: hx varicella '943Admin Note: TD4 Admin Note: unknown exact [id number] Note: unknown exact date Medications aspirin 81 mg oral delayed release tablet 162 mg, 2, tablet, By Mouth, Daily, To begin taking at 12 weeks gestational age - Approx. Apr 14 2020, # 30 tablet, Refills 0, Tot. Refills 0, Maintenance, 03/05/20 14:49:00 EST, Route to Pharmacy Electronically, [facility]/pharmacy #[id number], Partial fill upo... Start Date: 03/05/20 Status: Orderedbedside commode bedside commode, See Instructions, # 1 each, Refills 0, Tot. Refills 0, Maintenance, DX DM E 11.9 using at bedside, 11/14/17 17:17:55 EDT, Compound Start Date: 11/14/17 Status: OrderedDEXCOM G6 DRAW MACHINE OPERATOR DEXCOM G6 DRAW MACHINE OPERATOR, See Instructions, # 1 each, Refills 0, Tot. Refills 0, Maintenance, Use to monitor blood lgucose levels [facility]: [address]-42 E10.9, 04/06/20 12:07:00 EST, Supply, 170, cm, 03/05/20 14:05:00 EST, Height, 82, kg, 03/05/20 14:53:00... Start Date: 04/06/20 Status: OrderedDEXCOM G6 SENSOR, 3 PACK DEXCOM G6 SENSOR, 3 PACK, See Instructions, # 3 each, Refills 3, Tot. Refills 3, Maintenance, Use tomonitor blood sugar. E10.9 [facility] [address]-36, 07/16/20 14:20:00 EDT, Supply Start Date: 07/16/20 Status: OrderedDEXCOM G6 TRANSMITTER DEXCOM G6 TRANSMITTER, See Instructions, # 1 each, Refills 3, Tot. Refills 3, Maintenance, DEXCOM [id number], 07/16/20 14:20:00 EDT, Supply Start Date: 07/16/20 [...] 5 Refills, Maintenance, 06/17/20 13:05:00 EDT, Tablet, [facility]/pharmacy #[id number], Partial fill upon patient request if the prescription is for a schedule II opi... Start Date: 06/17/20 Status: OrderedLevemir FlexTouch 100 units/mL subcutaneous solution See Instructions, Take 40 units once daily. E11.65, # 30 mL, 5 Refills, Maintenance, 02/18/20 16:48:00 EST, [facility]/pharmacy #[id number], Stop [...] Hypertension(Confirmed) Active Care Coordination [facility], Hakan Active Jeanne, CC (Confirmed) delivery(Confirmed) Active delivery(Confirmed) Active 1Not seem at [facility] since 08/12/2016. Multiple no show in our center. She is seen by other provider Dr Matt Gutierrez by pharmacy records. Social History Social History Type Response Smoking Status Never smoker entered on: 03/28/17 Sex
--- OUTSIDE RECORDS SUMMARY | 2022-03-31 18:26 | XMS_ITS | Continuity of Care Document ---
:1990 Author Organization [facility] Address [address] [place] [address]- Care Team Providers Name Role Phone Chirag CARLSON, Abdon Primary Care Physician Encounter [facility] Date(s): 12/27/21 - 01/28/22 [facility] [address] [place] [id number] Attending Physician: Not on Staff, Attending MD Referring Physician: Tona Sevilla MD Allergies, [...] '943Admin Note: TD4 Admin Note: unknown exact [id number] Note: unknown exact date Medications Alcohol Pads [...] 12/13/21 14:16:00 EDT, Route to Pharmacy Electronically, [facility]/pharmacy #[id number], Partial fill upon patient request if the prescriptio... Start Date: 12/13/21 Status: OrderedCrestor 5 mg oral tablet 1 tablet = 5 mg, By Mouth, Daily, # 30 tablet, 0 Refills, Maintenance, 01/19/22 13:30:00 EST, Tablet, [facility]/pharmacy #[id number], [...] 01/19/22 13:34:00 EST, Route to Pharmacy Electronically, [facility]/pharmacy #[id number], Partial fill upon patient request if the prescription is for a schedule II opi... Start Date: 01/19/22 Status: OrderedLevemir FlexTouch 100 units/mL subcutaneous solution See Instructions, INJECT 8 UNITS SUBCUTANEOUSLY AT BEDTIME FOR 30 DAYS, # 15 Unknown, 0 Refills, Maintenance, 12/19/21 16:07:00 EDT, [facility] ST[facility] [id number], 168, cm, 12/13/21 12:57:00 EDT, Height, 90, kg, 12/13/21 11:35:00 EDT, Dry Weight Start Date: 12/19/21 Status: Orderedlisinopril 10 mg oral tablet 10 mg, 1, tablet, By Mouth, Daily, # 30 tablet, Refills 0, Tot. Refills 0, Maintenance, 01/19/22 13:31:00 EST, [facility] to Pharmacy Electronically, [facility] [...] 12/13/21 14:17:00 EDT, Route to Pharmacy Electronically, [facility]/pharmacy #[id number], Partial fill upon elisa... Start Date: 12/13/21 Status: OrderedPeak Flow Meter (Adult) See Instructions, # 1 each, Maintenance, Use when wheezing or chest tightness. Call for peak flow less than 200., 08/24/21 15:17:00 EDT, Supply, 168, cm, 08/24/21 11:41:00 EDT, Height, 75.8, kg, 06/09/21 11:38:00 EDT, Dry Weight Start Date: 08/24/21 Status: OrderedPen [place], 30 G x 8 mm BD Ultra [...] 0 Refills, Maintenance, 08/24/21 11:43:00 EDT, Inhaler, [facility]/pharmacy #[id number], Partial fill [...] II Confirmed Active Care Coordination Confirmed Active N-CP, Hakan Angel, CC 1Managed by PCP. WEll controlled.2Self-manages. States currently stable. No medications.3Not seem at [facility] since 08/12/2016. Multiple no show in our center. She is seen by other provider Dr Matt Gutierrez by pharmacy records.4Managed by [email or web address] by PCP with Tylenol Social History Social History Type Response Smoking Status Never (less than 100 in life time) entered on: 08/22/21 Sex Patient Care team information Care Team PersonnelName: Anuradha Morris RN Position: S RN Member Role: Primary Care Nurse Name: Samantha Reynolds RN Position: [facility] RN Member Role: Primary Care Nurse Name: Omega Gillespie RN Position: S RN Member Role: Primary Care Nurse Name: Paty Kelly RN Position: S RN Member Role: Primary Care Nurse Name: Akil Gleason RN Position: S RN Member Role: Primary Care Nurse Name: Sonia Malone Position: S RN Member Role: Primary Care Nurse Name: Keira Desai RN Position: S RN Member Role: Primary Care Nurse Name: Gomez Moseley RN Position: [facility] RN Supluis Member Role: Primary [...] Outreach Member Role: PCP Address: Address: [address] [place] [address]- [place] Name: Michele Blancas DO Position: [facility] Renal MD Member Role: Lifetime Consulting Physician Address: Address: [address] [facility] [address] [facility] [place] [address]- [place] Name: María Acosta RN Position: [facility] RN Member Role: Primary Care Nurse Name: Heather Correa RN Position: [facility] RN Member Role: Primary Care Nurse Name: Treasure Gilbert RN Position: [facility] RN Supv Member Role: Primary Care Nurse Name: Farzana Sevilla Position: [facility] RN Member Role: Primary Care Nurse Name: Libertad Sim RN Position: [facility] RN Member Role: Primary Care Nurse Name: Javan Pimentel MD Position: [facility] Renal MD Member Role: Lifetime Consulting Physician Address: Address: [address] [place] [address] [address] [facility] [place] [address]- [place] Name: Heather Pal RN Position: [facility] RN Member Role: Primary Care Nurse Name: Jody Rasmussen RN Position: [facility] RN Member Role: Primary Care Nurse Name: Mau Hazel RN Position: [facility] RN Member Role: Primary Care Nurse Name: Pedro Taylor RN Position: [facility] RN Member Role: Primary Care Nurse Name: Charlotte Singletary RN Position: [facility] OB RN Member Role: Primary Care Nurse Name: Alison Jose RN Position: [facility] RN Member Role: Primary Care Nurse Name: Kendall Coleman RN Position: [facility] RN Member Role: Primary Care Nurse Name: Nancy Fair RN Position: [facility] SN RN Member Role: Primary Care Nurse Name: Sofie Reed Position: [facility] RN Member Role: Primary Care Nurse Name: Fernando Siddiqi MD Position: [facility] Renal MD Member Role: Lifetime Consulting Physician Address: Address: [address] [facility] [address]- [place] Name: Lianne Byrnes RN Position: [facility] RN Member Role: Primary Care Nurse Name: Tona Jacome LPN Position: [facility] RN Member Role: Primary Care Nurse Name: Kaitlin BETH, Tatiana Dennis Position: [facility] RN Member Role: Primary Care Nurse Name: Jose Callejas RN Position: S RN Member Role: Primary Care Nurse Care Team Related PersonsName: LEONOR MCFARLAND Address: home [address] [place] [address] Name: REJI TALYOR Address: home [address] [place] [address] Name: JEFF CHAPMAN Address: [address] Address: home [address] [address] Name: ELI BONILLA Address: [address] [address]
--- OUTSIDE RECORDS SUMMARY | 2022-03-31 18:26 | XMS_ITS | Continuity of Care Document ---
:1990 Author Organization [facility] Address [address] [place] [address]- Care Team Providers Name Role Phone Not on Staff, PCP Primary Care Physician Unavailable Encounter [facility] Date(s): 03/16/20 - 04/15/[address] [address] Attending Physician: Michael Marquez Admitting [...] '943Admin Note: TD4 Admin Note: unknown exact [id number] Note: unknown exact date Medications aspirin 81 mg oral delayed release tablet 162 mg, 2, tablet, By Mouth, Daily, To begin taking at 12 weeks gestational age - Approx. Apr 14 2020, # 30 tablet, Refills 0, Tot. Refills 0, Maintenance, 03/05/20 14:49:00 EST, Route to Pharmacy Electronically, [facility]/pharmacy #[id number], Partial fill upo... Start Date: 03/05/20 Status: Orderedbedside commode bedside commode, See Instructions, # 1 each, Refills 0, Tot. Refills 0, Maintenance, DX DM E 11.9 using at bedside, 11/14/17 17:17:55 EDT, Compound Start Date: 11/14/17 Status: OrderedDEXCOM G6 LAN SPECIALIST DEXCOM G6 LAN SPECIALIST, See Instructions, # 1 each, Refills 0, Tot. Refills 0, Maintenance, Use to monitor blood lgucose levels [facility]: [id number] E10.9, 04/06/20 12:07:00 EST, Supply, 170, cm, 03/05/20 14:05:00 EST, Height, 82, kg, 03/05/20 14:53:00... Start Date: 04/06/20 Status: OrderedDEXCOM G6 SENSOR, 3 PACK DEXCOM G6 SENSOR, 3 PACK, See Instructions, # 3 each, Refills 3, Tot. Refills 3, Maintenance, Use tomonitor blood sugar. E10.9 [facility] [id number], 04/06/20 12:07:00 EST, Supply, 170, cm, 03/05/20 14:05:00 EST, Height, 82, kg, 03/05/20 14:53:00 EST... Start Date: 04/06/20 Status: OrderedDEXCOM G6 TRANSMITTER DEXCOM G6 TRANSMITTER, See Instructions, # 2 each, Refills 3, Tot. Refills 3, Maintenance, DEXCOM [id number], 04/06/20 12:07:00 EST, Supply, 170, cm, 03/05/20 [...] 0 Refills, Maintenance, 02/05/20 14:37:00 EST, Solution, [facility] [...] type 2(Confirmed)1 Active Hypertension(Confirmed) Active Care Coordination [facility], Hakan Angel, CC (Confirmed) delivery(Confirmed) Active delivery(Confirmed) Active 1Not seem at [facility] since 08/12/2016. Multiple no show in our center. She is seen by other provider Dr Matt Gutierrez by pharmacy records. Social History Social History Type Response Smoking Status Never smoker entered on: 03/28/17 Sex
--- OUTSIDE RECORDS SUMMARY | 2022-03-31 18:26 | XMS_ITS | Continuity of Care Document ---
:1990 Author Organization [facility] Address [address] [place] [address]- Care Team Providers Name Role Phone Chirag CARLSON, Abdon Primary Care Physician Encounter [facility] Date(s): 12/13/21 - 12/13/[address] [address]- Discharge Disposition: Transferred to an intermediate care faci Attending Physician: Akil Marte MD Admitting Physician: [...] '943Admin Note: TD4 Admin Note: unknown exact [id number] Note: unknown exact date Medications Alcohol Pads [...] 12/13/21 14:16:00 EDT, Route to Pharmacy Electronically, [facility]/pharmacy #[id number], Partial fill upon patient request if the prescriptio... Start Date: 12/13/21 Status: OrderedCoreg 25 mg oral tablet 50 mg, 2, tablet, By Mouth, 2 times a day, # 120 tablet, Refills 0, Tot. Refills 0, Maintenance, 12/13/21 14:16:00 EDT, Route to Pharmacy Electronically, [facility]/pharmacy #[id number], Partial fill upon patient request if the [...] 12/13/21 14:16:00 EDT, Route to Pharmacy Electronically, [facility]/pharmacy #[id number], Partial fill upon patient request if the prescription is for a schedule II op... Start Date: 12/13/21 Status: OrderedLevemir FlexTouch 100 units/mL subcutaneous solution = 10 units, Subcutaneous Injection, Daily at bedtime, # 15 mL, 0 Refills, Maintenance, 08/24/21 11:26:00 EDT, Injection, [facility]/pharmacy #[id number], Partial fill upon patient request if the prescription is fora schedule II opioid drug., 168, cm, 08/24/21 10:... Start Date: 08/24/21 Stop Date: 09/23/21 Status: OrderedNIFEdipine (Eqv-Procardia XL) 90 mg oral tablet, extended release 1 tablet = 90 mg, By Mouth, Daily, # 30 tablet, 0 Refills, Maintenance, 12/13/21 14:16:00 EDT, [facility]/pharmacy #[id number], Partial fill upon patient [...] 12/13/21 14:17:00 EDT, Route to Pharmacy Electronically, [facility]/pharmacy #[id number], Partial fill upon elisa... Start Date: 12/13/21 Status: OrderedPeak Flow Meter (Adult) See Instructions, # 1 each, Maintenance, Use when wheezing or chest tightness. Call for peak flow less than 200., 08/24/21 15:17:00 EDT, Supply, 168, cm, 08/24/21 11:41:00 EDT, Height, 75.8, kg, 06/09/21 11:38:00 EDT, Dry Weight Start Date: 08/24/21 Status: OrderedPen [place], 30 G x 8 mm BD Ultra [...] 0 Refills, Maintenance, 08/24/21 11:43:00 EDT, Inhaler, [facility]/pharmacy #[id number], Partial fill upon patient [...] 12/13/21 14:17:00 EDT, Route to Pharmacy Electronically, [facility]/pharmacy #[id number], Partial fill upon patient request if the prescription is f... Start Date: 12/13/21 Status: OrderedTylenol Extra Strength 500 mg oral tablet 2 tablet = 1,000 mg, By Mouth, Every 4 hours, PRN for pain, # 120 tablet, 0 Refills, Maintenance, 12/13/21 14:17:00 EDT, Tablet, [facility]/pharmacy #[id number], Partial fill upon patient [...] Dr Matt Gutierrez by pharmacy records.4Managed by [id number] by PCP with Tylenol Vital Signs Most recent to oldest [Reference Range]: 1 Height 168 cm (12/13/21 11:35 AM) Weight 90 kg (12/13/21 11:35 AM) Oxygen Saturation [94-100 %] 98 % (12/13/21 11:33 AM) Pulse Rate [55-90 bpm] 92 bpm *H* (12/13/21 11:33 AM) Blood Pressure [90-138/55-84 mm Hg] 138/82 mm Hg (12/13/21 11:33 AM) Respiratory Rate [16-30 br/min] 18 br/min (12/13/21 11:33 AM) Temperature [96.8-100.4 DegF] 98.2 DegF (12/13/21 11:33 AM) Mode of Delivery (Oxygen) Room air (12/13/21 11:33 AM) Blood pressure sites Arm, right (12/13/21 11:33 AM) Temperature Route Oral (12/13/21 11:33 AM) Dry Weight 90 kg (12/13/21 11:35 AM) Social History Social History Type Response Smoking Status Never (less than 100 in life time) entered on: 08/22/21 Sex Patient Care team information PersonnelName: Abdon Beard MD Address: Address: [address] [place] [address]
--- OUTSIDE RECORDS SUMMARY | 2022-03-31 18:26 | XMS_ITS | Continuity of Care Document ---
:1990 Author Organization [facility] Address [address] [place] [address]- Care Team Providers Name Role Phone Not on Staff, PCP Primary Care Physician Unavailable Encounter [facility] Date(s): 05/20/20 - 07/24/[address] [address] Attending Physician: Angela Hartmann MD Admitting Physician: [...] '943Admin Note: TD4 Admin Note: unknown exact [id number] Note: unknown exact date Medications aspirin 81 mg oral delayed release tablet 162 mg, 2, tablet, By Mouth, Daily, To begin taking at 12 weeks gestational age - Approx. Apr 14 2020, # 30 tablet, Refills 0, Tot. Refills 0, Maintenance, 03/05/20 14:49:00 EST, Route to Pharmacy Electronically, [facility]/pharmacy #[id number], Partial fill upo... Start Date: 03/05/20 Status: Orderedbedside commode bedside commode, See Instructions, # 1 each, Refills 0, Tot. Refills 0, Maintenance, DX DM E 11.9 using at bedside, 11/14/17 17:17:55 EDT, Compound Start Date: 11/14/17 Status: OrderedDEXCOM G6 SITE MANAGER DEXCOM G6 SITE MANAGER, See Instructions, # 1 each, Refills 0, Tot. Refills 0, Maintenance, Use to monitor blood lgucose levels [facility]: [id number] E10.9, 04/06/20 12:07:00 EST, Supply, 170, cm, 03/05/20 14:05:00 EST, Height, 82, kg, 03/05/20 14:53:00... Start Date: 04/06/20 Status: OrderedDEXCOM G6 SENSOR, 3 PACK DEXCOM G6 SENSOR, 3 PACK, See Instructions, # 3 each, Refills 3, Tot. Refills 3, Maintenance, Use tomonitor blood sugar. E10.9 [facility] [address]-98, 07/16/20 14:20:00 EDT, Supply Start Date: 07/16/20 Status: OrderedDEXCOM G6 TRANSMITTER DEXCOM G6 TRANSMITTER, See Instructions, # 1 each, Refills 3, Tot. Refills 3, Maintenance, DEXCOM [id number], 07/16/20 14:20:00 EDT, Supply Start Date: 07/16/20 [...] 5 Refills, Maintenance, 06/17/20 13:05:00 EDT, Tablet, [facility]/pharmacy #[id number], Partial fill upon patient request if the prescription is for a schedule II opi... Start Date: 06/17/20 Status: OrderedLevemir FlexTouch 100 units/mL subcutaneous solution See Instructions, Take 40 units once daily. E11.65, # 30 mL, 5 Refills, Maintenance, 02/18/20 16:48:00 EST, [facility]/pharmacy #[id number], Stop Lantus. Start Levemir., 170, [...] type 2(Confirmed)1 Active Hypertension(Confirmed) Active Care Coordination [facility], Hakan Active Jeanne, CC (Confirmed) delivery(Confirmed) Active delivery(Confirmed) Active 1Not seem at [facility] since 08/12/2016. Multiple no show in our center. She is seen by other provider Dr Matt Gutierrez by pharmacy records. Social History Social History Type Response Smoking Status Never smoker entered on: 03/28/17 Sex
--- OUTSIDE RECORDS SUMMARY | 2022-03-31 18:26 | XMS_ITS | Continuity of Care Document ---
:1990 Author Organization [facility] Address [address] [place] [id number]- Care Team Providers Name Role Phone Chirag CARLSON, Abdon Primary Care Physician [facility] Date(s): 10/13/21 - 11/12/21 [facility] [address] [place] [id number] Allergies, Adverse Reactions, Alerts Substance Reaction [...] '943Admin Note: TD4 Admin Note: unknown exact [id number] Note: unknown exact date Medications Alcohol Pads [...] 08/24/21 11:43:00 EDT, Route to Pharmacy Electronically, [facility]/pharmacy #[id number], Partial fill upon patient request ifthe prescription is for a schedule II opioid drug... Start Date: 08/24/21 Status: Orderedaspirin 81 mg oral delayed release tablet 2 tablet = 162 mg, By Mouth, Daily, # 90 tablet, 3 Refills, Maintenance, 10/05/21 12:28:00 EDT, CR Tablet, [facility]/pharmacy [...] 08/24/21 11:44:00 EDT, Route to Pharmacy Electronically, [facility]/pharmacy #[id number], Partial fill u... Start Date: 08/24/21 Status: OrderedLevemir FlexTouch 100 units/mL subcutaneous solution = 10 units, Subcutaneous Injection, Daily at bedtime, # 15 mL, 0 Refills, Maintenance, 08/24/21 11:26:00 EDT, Injection, [facility]/pharmacy #[id number], Partial fill upon patient request if the prescription is fora schedule II opioid drug., 168, cm, 08/24/21 10:... Start Date: 08/24/21 Stop Date: 09/23/21 Status: OrderedMetoprolol Tartrate 25 mg oral tablet 2 tablet = 50 mg, By Mouth, 2 times a day, # 120 each, 4 Refills, Maintenance, 09/07/21 18:00:00 EDT, Tablet, [facility]/pharmacy #[id number], Partial fill upon patient request if the prescription is for a scheduleII opioid drug., 168, cm, 09/07/21 10:41:00 EDT,... Start Date: 09/07/21 Status: Orderednitrofurantoin macrocrystals 100 mg oral capsule See Instructions, 1 capsule By Mouth twice daily x 7 days, # 14 each, 0 Refills, Acute 11/26/21 15:27:00 EDT, 10/28/21 15:26:00 EDT, [facility]/pharmacy #[id number], [...] Dry Weight Start Date: 08/24/21 Status: OrderedPen [place], 30 G x 8 mm BD Ultra [...] Refills, Maintenance, 08/24/21 11:27:00 EDT, Chew Tablet, [facility]/pharmacy [...] 0 Refills, Maintenance, 08/24/21 11:43:00 EDT, Inhaler, [facility]/pharmacy #[id number], [...] Active Obese class I(Confirmed) Active Care Coordination [facility]-L[facility], Hakan Angel, CC (Confirmed) Pre-existing diabetes mellitus Active affecting , antepartum(Confirmed) Poor vision(Confirmed)6 Active 1Managed by PCP. WEll controlled.2Self-manages. States currently stable. No medications.3Not seem at [facility] since 08/12/2016. Multiple no show in our center. She is seen by other provider Dr Matt Gutierrez by pharmacy records.4Managed by [id number] by PCP with [id number], states sees shadows and has blurry vision. Last eye doctor appointment was several years ago. Social History Social History Type Response Smoking Status Never (less than 100 in life time) entered on: 08/22/21 Sex Care Team PersonnelName: Abdon Beard MD Address: [address] [place] [address]
--- OUTSIDE RECORDS SUMMARY | 2022-03-31 18:26 | XMS_ITS | Continuity of Care Document ---
:1990 Author Organization [facility] Address [address] [place] [address]- Care Team Providers Name Role Phone Abdon Beard MD Primary Care Physician [facility]counter [facility] Date(s): 11/17/21 - 12/17/[facility] [address] [place] [id number] Allergies, Adverse Reactions, Alerts Substance [...] '943Admin Note: TD4 Admin Note: unknown exact [id number] Note: unknown exact date Medications Alcohol Pads [...] 12/13/21 14:16:00 EDT, Route to Pharmacy Electronically, [facility]/pharmacy #[id number], Partial fill upon patient request if the prescriptio... Start Date: 12/13/21 Status: OrderedCoreg 25 mg oral tablet 50 mg, 2, tablet, By Mouth, 2 times a day, # 120 tablet, Refills 0, Tot. Refills 0, Maintenance, 12/13/21 14:16:00 EDT, [facility] to Pharmacy Electron[facility], [facility] 12/13/21 14:16:00 EDT, Route to Pharmacy Electronically, [facility]/pharmacy #[id number], Partial fill upon patient request if the prescription is for a schedule II op... Start Date: 12/13/21 Status: OrderedLevemir FlexTouch 100 units/mL subcutaneous solution = 10 units, Subcutaneous Injection, Daily at bedtime, # 15 mL, 0 Refills, Maintenance, 08/24/21 11:26:00 EDT, Injection, [facility]/pharmacy #[id number], Partial fill upon patient request if the prescription is fora schedule II opioid drug., 168, cm, 08/24/21 10:... Start Date: 08/24/21 Stop Date: 09/23/21 Status: OrderedNIFEdipine (Eqv-Procardia XL) 90 mg oral tablet, extended release 1 tablet = 90 mg, By Mouth, Daily, # 30 tablet, 0 Refills, Maintenance, 12/13/21 14:16:00 EDT, [facility]/pharmacy #[id number], Partial fill upon [...] 12/13/21 14:17:00 EDT, Route to Pharmacy Electronically, [facility]/pharmacy #[id number], Partial fill upon elisa... Start Date: 12/13/21 Status: OrderedPeak Flow Meter (Adult) See Instructions, # 1 each, Maintenance, Use when wheezing or chest tightness. Call for peak flow less than 200., 08/24/21 15:17:00 EDT, Supply, 168, cm, 08/24/21 11:41:00 EDT, Height, 75.8, kg, 06/09/21 11:38:00 EDT, Dry Weight Start Date: 08/24/21 Status: OrderedPen [place], 30 G x 8 mm BD Ultra [...] 0 Refills, Maintenance, 08/24/21 11:43:00 EDT, Inhaler, [facility]/pharmacy #[id number], Partial fill upon [...] 12/13/21 14:17:00 EDT, Route to Pharmacy Electronically, [facility]/pharmacy #[id number], Partial fill upon patient request if the prescription is f... Start Date: 12/13/21 Status: OrderedTylenol Extra Strength 500 mg oral tablet 2 tablet = 1,000 mg, By Mouth, Every 4 hours, PRN for pain, # 120 tablet, 0 Refills, Maintenance, 12/13/21 14:17:00 EDT, Tablet, [facility]/pharmacy #[id number], Partial [...] Dr Matt Gutierrez by pharmacy records.4Managed by [email or web address] by PCP with Tylenol Social History Social History Type Response Smoking Status Never (less than 100 in life time) entered on: 08/22/21 Sex Patient Care team information PersonnelName: Chirag CARLSON, Abdon Address: Address: [address] [place] [id number]
--- OUTSIDE RECORDS SUMMARY | 2022-03-31 18:26 | XMS_ITS | Continuity of Care Document ---
:1990 Author Organization [facility] Address [address] [place] [address]- Care Team Providers Name Role Phone Not on Staff, PCP Primary Care Physician Unavailable [facility]counter [facility] Date(s): 03/12/20 - 05/07/20 [facility] [address], [place] [address] Attending Physician: Christiana Quiros MD Admitting Physician: [...] '943Admin Note: TD4 Admin Note: unknown exact [id number] Note: unknown exact date Medications aspirin 81 mg oral delayed release tablet 162 mg, 2, tablet, By Mouth, Daily, To begin taking at 12 weeks gestational age - Approx. Apr 14 2020, # 30 tablet, Refills 0, Tot. Refills 0, Maintenance, 03/05/20 14:49:00 EST, Route to Pharmacy Electronically, [facility]/pharmacy #[id number], Partial fill upo... Start Date: 03/05/20 Status: Orderedbedside commode bedside commode, See Instructions, # 1 each, Refills 0, Tot. Refills 0, Maintenance, DX DM E 11.9 using at bedside, 11/14/17 17:17:55 EDT, Compound Start Date: 11/14/17 Status: OrderedDEXCOM G6 COUNTERINTELLIGENCE AGENT DEXCOM G6 COUNTERINTELLIGENCE AGENT, See Instructions, # 1 each, Refills 0, Tot. Refills 0, Maintenance, Use to monitor blood lgucose levels [facility]: [id number] E10.9, 04/06/20 12:07:00 EST, Supply, 170, cm, 03/05/20 14:05:00 EST, Height, 82, kg, 03/05/20 14:53:00... Start Date: 04/06/20 Status: OrderedDEXCOM G6 SENSOR, 3 PACK DEXCOM G6 SENSOR, 3 PACK, See Instructions, # 3 each, Refills 3, Tot. Refills 3, Maintenance, Use tomonitor blood sugar. E10.9 [facility] [id number], 04/06/20 12:07:00 EST, Supply, 170, cm, 03/05/20 14:05:00 EST, Height, 82, kg, 03/05/20 14:53:00 EST... Start Date: 04/06/20 Status: OrderedDEXCOM G6 TRANSMITTER DEXCOM G6 TRANSMITTER, See Instructions, # 2 each, Refills 3, Tot. Refills 3, Maintenance, DEXCOM [id number], 04/06/20 12:07:00 EST, Supply, 170, cm, 03/05/20 [...] 03/05/20 14:48:00 EST, Route to Pharmacy Electronically, [facility]/pharmacy #[id number], Partial fill upon patient request if the prescription is for a s... Start Date: 03/05/20 Status: OrderedNovoLOG FlexPen 100 units/mL subcutaneous solution See Instructions, Max daily dose 50 units, per sliding scale. E11.65, # 30 mL, 5 Refills, Maintenance, 02/05/20 14:37:00 EST, Solution, [facility]/pharmacy #[id number], Partial fill upon patient request if the prescription is for a schedule II opioid drug., 170, c... Start Date: 02/05/20 Status: OrderedPrenatal Multivitamins with Folic Acid 1 mg oral tablet 1 tablet, By Mouth, Daily, # 90 tablet, 2 Refills, Maintenance, 03/05/20 14:51:00 EST, Tablet, [facility]/pharmacy #[id number], Partial fill upon patient request if the prescription is for a schedule II opioid drug., 1 tablet By Mouth Daily, 170, cm, 01/08/20 13:3... Start Date: 03/05/20 Status: OrderedTrulicity Pen 1.5 mg/0.5 mL subcutaneous solution 0.5 mL = 1.5 mg, Subcutaneous Injection, Every week, Take 1.5mg once weekly. E11.65, # 2.5 mL, 5 Refills, Maintenance, 04/22/20 16:38:00 EST, Solution, [facility]/pharmacy #[id number], Partial fill upon patient [...] type 2(Confirmed)1 Active Hypertension(Confirmed) Active Care Coordination [facility], Hakan Active Jeanne, CC (Confirmed) delivery(Confirmed) Active delivery(Confirmed) Active 1Not seem at [facility] since 08/12/2016. Multiple no show in our center. She is seen by other provider Dr Matt Gutierrez by pharmacy records. Social History Social History Type Response Smoking Status Never smoker entered on: 03/28/17 Sex
--- OUTSIDE RECORDS SUMMARY | 2022-03-31 18:26 | XMS_ITS | Continuity of Care Document ---
:1990 Author Organization [facility] Address [address] [place] [id number]- Care Team Providers Name Role Phone Chirag CARLSON, Abdon Primary Care Physician [facility]counter [facility] Date(s): 12/29/21 - 01/28/22 [facility] [address] [place] [id number] Attending Physician: AdmMichael coyle Admitting Physician: Admtr, Ar8 Referring Physician: Admtr, Ar8 Allergies, Adverse Reactions, [...] '943Admin Note: TD4 Admin Note: unknown exact [id number] Note: unknown exact date Medications Alcohol Pads [...] 12/13/21 14:16:00 EDT, Route to Pharmacy Electronically, [facility]/pharmacy #[id number], Partial fill upon patient request if the prescriptio... Start Date: 12/13/21 Status: OrderedCrestor 5 mg oral tablet 1 tablet = 5 mg, By Mouth, Daily, # 30 tablet, 0 Refills, Maintenance, 01/19/22 13:30:00 EST, Tablet, [facility]/pharmacy #[id number], Partial fill upon patient request if the [...] 01/19/22 13:34:00 EST, Route to Pharmacy Electronically, [facility]/pharmacy #[id number], Partial fill upon patient request if the prescription is for a schedule II opi... Start Date: 01/19/22 Status: OrderedLevemir FlexTouch 100 units/mL subcutaneous solution See Instructions, INJECT 8 UNITS SUBCUTANEOUSLY AT BEDTIME FOR 30 DAYS, # 15 Unknown, 0 Refills, Maintenance, 12/19/21 16:07:00 EDT, [id number], 168, cm, 12/13/21 12:57:00 EDT, Height, 90, kg, 12/13/21 11:35:00 EDT, Dry Weight Start Date: 12/19/21 Status: Orderedlisinopril 10 mg oral tablet 10 mg, 1, tablet, By Mouth, Daily, # 30 tablet, Refills 0, Tot. Refills 0, Maintenance, 01/19/22 13:31:00 EST, Route to Pharmacy Electronically, [facility]/pharmacy #[id number], Partial fill upon patient request ifthe prescription is for a schedule II opioid drug... Start Date: 01/19/22 Status: Orderedmetoprolol 100 mg oral tablet, extended release 200 mg, 2, tablet, By Mouth, Daily, # 60 tablet, Refills 0, Tot. Refills 0, Maintenance, 01/19/22 13:29:00 EST, Route to Pharmacy Electronically, [facility]/pharmacy #[id number], Partial fill upon patient request if the prescription is for a schedule II opioid sheila... Start Date: 01/19/22 Status: OrderedNIFEdipine (Eqv-Procardia XL) 90 mg oral tablet, extended release 1 tablet = 90 mg, By Mouth, Daily, # 30 tablet, 0 Refills, Maintenance, 12/13/21 14:16:00 EDT, [facility]/pharmacy #[id number], Partial fill upon patient [...] 12/13/21 14:17:00 EDT, Route to Pharmacy Electronically, [facility]/pharmacy #[id number], Partial fill upon elisa... Start Date: 12/13/21 Status: OrderedPeak Flow Meter (Adult) See Instructions, # 1 each, Maintenance, Use when wheezing or chest tightness. Call for peak flow less than 200., 08/24/21 15:17:00 EDT, Supply, 168, cm, 08/24/21 11:41:00 EDT, Height, 75.8, kg, 06/09/21 11:38:00 EDT, Dry Weight Start Date: 08/24/21 Status: OrderedPen [place], 30 G x 8 mm BD Ultra [...] Refills, Maintenance, 08/24/21 11:43:00 EDT, Inhaler, [facility]/pharmacy #[id number], Partial fill upon patient [...] Dr Matt Gutierrez by pharmacy records.4Managed by [email or web address] by PCP with Tylenol Social History Social History Type Response Smoking Status Never (less than 100 in life time) entered on: 08/22/21 Sex Patient Care team information Care Team PersonnelName: Anuradha Morris RN Position: [facility] RN Member Role: Primary Care Nurse Name: Samantha Reynolds RN Position: [facility] RN Member Role: Primary Care Nurse Name: Omega Gillespie RN Position: [facility] RN Member Role: Primary Care Nurse Name: Paty Kelly RN Position: [facility] RN Member Role: Primary Care Nurse Name: Akil Gleason RN Position: S RN Member Role: Primary Care Nurse Name: Sonia Malone Position: S RN Member Role: Primary Care Nurse Name: Keira Desai RN Position: [facility] RN Member Role: Primary Care Nurse Name: Gomez Moseley RN Position: [facility] RN Addie Member Role: Primary Care Nurse Name: Vashti Bruce RN Position: [facility] RN Member Role: Primary Care Nurse Name: Raghav Granger Position: [facility] RN Member Role: Primary Care Nurse Name: Cassy Caraballo RN Position: [facility] RN Member Role: Primary Care Nurse Name: Lisa Vines RN Position: S RN Member Role: Primary Care Nurse Name: Larissa Barnett RN Position: S RN Member Role: Primary Care Nurse Name: Inna Beckwith RN Position: [facility] RN Member Role: Primary Care Nurse Name: Cady Araya RN Position: [facility] RN Member Role: Primary Care Nurse Name: Abdon Beard MD Position: S Outreach Member Role: PCP Address: Address: [address] [place] [address]- [place] Name: Michele Blancas DO Position: [facility] Renal MD Member Role: Lifetime Consulting Physician Address: Address: [address] [facility] [address] [facility] [place] [address]- [place] Name: María Acosta RN Position: [facility] RN Member Role: Primary Care Nurse Name: Heather Correa RN Position: S RN Member Role: Primary Care Nurse Name: Treasure Gilbert RN Position: [facility] RN Supv Member Role: Primary Care Nurse Name: Farzana Sevilla Position: [facility] RN Member Role: Primary Care Nurse Name: Libertad Sim RN Position: [facility] RN Member Role: Primary Care Nurse Name: Javan Pimentel MD Position: [facility] Renal MD Member Role: Lifetime Consulting Physician Address: Address: [address] [place] [address] [address] [facility] [place] [address]- [place] Name: Heather Pal RN Position: [facility] RN Member Role: Primary Care Nurse Name: Jody Rasmussen RN Position: [facility] RN Member Role: Primary Care Nurse Name: Mau Hazel RN Position: [facility] RN Member Role: Primary Care Nurse Name: Pedro Taylor RN Position: [facility] RN Member Role: Primary Care Nurse Name: Charlotte Singletary RN Position: [facility] OB RN Member Role: Primary Care Nurse Name: Alison Jose RN Position: [facility] RN Member Role: Primary Care Nurse Name: Kendall Coleman RN Position: [facility] RN Member Role: Primary Care Nurse Name: Nancy Fair RN Position: [facility] SN RN Member Role: Primary Care Nurse Name: Sofie Reed Position: [facility] RN Member Role: Primary Care Nurse Name: Fernando Siddiqi MD Position: [facility] Renal MD Member Role: Lifetime Consulting Physician Address: Address: [address] [facility] [place] [address]- [place] Name: Lianne Byrnes RN Position: [facility] RN Member Role: Primary Care Nurse Name: Tona Jacome LPN Position: S RN Member Role: Primary Care Nurse Name: Kaitlin BETH, Tatiana Dennis Position: S RN Member Role: Primary Care Nurse Name: Jose Callejas RN Position: S RN Member Role: Primary Care Nurse Care Team Related PersonsName: LEONOR MCFARLAND Address: home [address] [place] [address] Name: REJI TAYLOR Address: home [address] [place] [address] Name: JEFF CHAPMAN Address: [address] Address: home [address] [address] Name: ELI BONILLA Address: [address] [address]
--- OUTSIDE RECORDS SUMMARY | 2022-03-31 18:26 | XMS_ITS | Continuity of Care Document ---
:1990 Author Organization [facility] Address [address] [place] [address]- Care Team Providers Name Role Phone Abdon Beard MD Primary Care Physician Encounter [facility] Date(s): 08/25/20 - 09/24/20 [facility] [address] [place] [address]- Allergies, Adverse Reactions, Alerts Substance Reaction Severity [...] '943Admin Note: TD4 Admin Note: unknown exact [id number] Note: unknown exact date Medications aspirin 81 mg oral delayed release tablet 162 mg, 2, tablet, By Mouth, Daily, To begin taking at 12 weeks gestational age - Approx. Apr 14 2020, # 30 tablet, Refills 0, Tot. Refills 0, Maintenance, 03/05/20 14:49:00 EST, Route to Pharmacy Electronically, [facility]/pharmacy #[id number], Partial fill upo... Start Date: 03/05/20 Status: Orderedbedside commode bedside commode, See Instructions, # 1 each, Refills 0, Tot. Refills 0, Maintenance, DX DM E 11.9 using at bedside, 11/14/17 17:17:55 EDT, Compound Start Date: 11/14/17 Status: OrderedDEXCOM G6 FOUNDATION DIGGER DEXCOM G6 FOUNDATION DIGGER, See Instructions, # 1 each, Refills 0, Tot. Refills 0, Maintenance, Use to monitor blood lgucose levels [facility]: [id number] E10.9, 04/06/20 12:07:00 EST, Supply, 170, cm, 03/05/20 14:05:00 EST, Height, 82, kg, 03/05/20 14:53:00... Start Date: 04/06/20 Status: OrderedDEXCOM G6 SENSOR, 3 PACK DEXCOM G6 SENSOR, 3 PACK, See Instructions, # 3 each, Refills 3, Tot. Refills 3, Maintenance, Use tomonitor blood sugar. E10.9 [facility] [id number], 07/16/20 14:20:00 EDT, Supply Start Date: 07/16/20 Status: OrderedDEXCOM G6 TRANSMITTER DEXCOM G6 TRANSMITTER, See Instructions, # 1 each, Refills 3, Tot. Refills 3, Maintenance, DEXCOM [id number], 07/16/20 14:20:00 EDT, Supply Start Date: 07/16/20 [...] Refills, Maintenance, 06/17/20 13:05:00 EDT, Tablet, [facility]/pharmacy #[id number], Partial fill upon patient request if the prescription is for a schedule II opi... Start Date: 06/17/20 Status: OrderedLevemir FlexTouch 100 units/mL subcutaneous solution See Instructions, Take 40 units once daily. E11.65, # 30 mL, 5 Refills, Maintenance, 02/18/20 16:48:00 EST, [facility]/pharmacy #[id number], Stop Lantus. Start Levemir., 170, cm, [...] 2 Refills, Maintenance, 03/05/20 14:51:00 EST, Tablet, [facility]/pharmacy #[id number], Partial fill upon patient request if [...] Active Hypertension(Confirmed) Active Care Coordination [facility], Hakan Active Jeanne, CC (Confirmed) delivery(Confirmed) Active delivery(Confirmed) Active 1Not seem at [facility] since 08/12/2016. Multiple no show in our center. She is seen by other provider Dr Matt Gutierrez by pharmacy records. Social History Social History Type Response Smoking Status Never smoker entered on: 03/28/17 Sex
--- OUTSIDE RECORDS SUMMARY | 2022-03-31 18:26 | XMS_ITS | Continuity of Care Document ---
:1990 Author Organization [facility] Address [address] [place] [address]- Care Team Providers Name Role Phone Abdon Beard MD Primary Care Physician [facility] Date(s): 04/26/21 - 05/26/21 [facility] [address] [place] [id number] Attending Physician: AdmMichael coyle Admitting [...] '943Admin Note: TD4 Admin Note: unknown exact [id number] Note: unknown exact date Medications acetaminophen 325 [...] 03/31/21 14:26:00 EST, Route to Pharmacy Electronically, [facility]/pharmacy #[id number], Partial fill upon patient request ifthe prescription is for a schedule II opioid drug... Start Date: 03/31/21 Status: Orderedatorvastatin 40 mg oral tablet 1 tablet = 40 mg, By Mouth, Daily at bedtime, Follow-up with your primary care doctor for further refills., # 30 tablet, 1 Refills, Maintenance, 04/26/21 14:51:00 EST, Tablet, [facility],Partial fill upon patient request if the prescrip... Start Date: 04/26/21 Status: Orderedcyclobenzaprine 10 mg oral tablet 10 mg, 1, tablet, By Mouth, 3 times a day, # 15 tablet, Refills 0, Tot. Refills 0, Acute 05/27/21 13:51:00 EDT, 05/26/21 13:51:00 EDT, Route to Pharmacy Electronically, [facility], Partial fill upon patient request if the prescription is... Start Date: 05/26/21 Stop Date: 05/27/21 Status: OrderedDilaudid 2 mg oral tablet 1 tablet = 2 mg, By Mouth, Every 6 hours, PRN Pain , Severe, # 10 tablet, 0 Refills, Acute 05/27/21 13:51:00 EDT, 05/26/21 13:51:00 EDT, Tablet, [facility], Partial fill upon patient request if [...] Maintenance, 11/17/20 10:19:00 EDT, Tablet, [facility]/pharmacy #[id number], Partial fillupon patient request if the prescription is for a... Start Date: 11/17/20 Status: OrderedLasix 20 mg oral tablet 20 mg, 1, tablet, By Mouth, Daily, Follow-up with your primary care doctor for further refills., # 30 tablet, Refills 0, Tot. Refills 0, Maintenance, 04/26/21 14:52:00 EST, Route to Pharmacy Electronically, [facility], Partial fill upon... Start Date: 04/26/21 Status: OrderedLevemir FlexTouch 100 units/mL subcutaneous solution INJECT 43 UNITS SUBCUTANEOUSLY ONCE DAILY Start Date: 04/23/21 Status: Orderedlidocaine 5% topical film 1 patch, Topically, Daily, PRN Pain , Mild, remove after 12 hours, # 13 each, 0 Refills, Maintenance, 04/19/21 11:26:00 EST, Film, [facility]/pharmacy #[id number], Partial fill upon patient [...] 04/26/21 14:52:00 EST, Route to Pharmacy Electronically, [facility], Partial fi... Start Date: 04/26/21 Status: Orderednitroglycerin 0.4 mg sublingual tablet 1 tablet = 0.4 mg, Sublingual, Every 5 minutes, PRN as needed for chest pain, not to exceed 3 doses/15 min--if pain persists, seek medical attention, # 25 tablet, 0 Refills, Maintenance, 03/31/21 14:26:00 EST, Tablet, [facility]/pharmacy #[id number], Partial fill... Start Date: 03/31/21 Status: OrderedNovoLOG [...] Active Obese class I(Confirmed) Active Care Coordination [facility], [place]akan Active Jeanne, CC (Confirmed) delivery(Confirmed) Active delivery(Confirmed) Active 1Not seem at [facility] since 08/12/2016. Multiple no show in our center. She is seen by other provider Dr Matt Gutierrez by pharmacy records. Social History Social History Type Response Smoking Status Never (less than 100 in life time) entered on: 04/23/21 Sex
--- OUTSIDE RECORDS SUMMARY | 2022-03-31 18:26 | XMS_ITS | Continuity of Care Document ---
:1990 Author Organization [facility] Address [address] [place] [id number]- Care Team Providers Name Role Phone Chirag CARLSON, Abdon Primary Care Physician [facility]counter [facility] Date(s): 09/29/21 - 11/05/21 [facility] [address] [place] [id number] Attending Physician: Lima Escalante MD Admitting Physician: Lima Escalante MD Referring Physician: Charu PEREZ, Nupur Murray Allergies, Adverse Reactions, Alerts Substance Reaction Severity Status vancomycin1, 2 Tightness in throat Active Zosyn3 angioedema Severe Active morphine Itching Active 1Tolerates again Per chart: pt tolerated [...] '943Admin Note: TD4 Admin Note: unknown exact [id number] Note: unknown exact date Medications Alcohol Pads [...] 08/24/21 11:43:00 EDT, Route to Pharmacy Electronically, [facility]/pharmacy #[id number], Partial fill upon patient request ifthe prescription is for a schedule II opioid drug... Start Date: 08/24/21 Status: Orderedaspirin 81 mg oral delayed release tablet 2 tablet = 162 mg, By Mouth, Daily, # 90 tablet, 3 Refills, Maintenance, 10/05/21 12:28:00 EDT, CR Tablet, [facility]/pharmacy #[id number], Partial fill upon [...] 08/24/21 11:44:00 EDT, Route to Pharmacy Electronically, [facility]/pharmacy #[id number], Partial fill u... Start Date: 08/24/21 Status: OrderedLevemir FlexTouch 100 units/mL subcutaneous solution = 10 units, Subcutaneous Injection, Daily at bedtime, # 15 mL, 0 Refills, Maintenance, 08/24/21 11:26:00 EDT, Injection, [facility]/pharmacy #[id number], Partial fill upon patient request if the prescription is fora schedule II opioid drug., 168, cm, 08/24/21 10:... Start Date: 08/24/21 Stop Date: 09/23/21 Status: OrderedMetoprolol Tartrate 25 mg oral tablet 2 tablet = 50 mg, By Mouth, 2 times a day, # 120 each, 4 Refills, Maintenance, 09/07/21 18:00:00 EDT, Tablet, [facility]/pharmacy #[id number], Partial fill upon patient request if the prescription is for a scheduleII opioid drug., Velvet cm, 09/07/21 10:41:00 EDT,... Start Date: 09/07/21 Status: Orderednitrofurantoin macrocrystals 100 mg oral capsule See Instructions, 1 capsule By Mouth twice daily x 7 days, # 14 each, 0 Refills, Acute 11/26/21 15:27:00 EDT, 10/28/21 15:26:00 EDT, [facility]/pharmacy #[id number], Partial fill upon [...] Dry Weight Start Date: 08/24/21 Status: OrderedPen [place], 30 G x 8 mm BD Ultra [...] Refills, Maintenance, 08/24/21 11:27:00 EDT, Chew Tablet, [facility]/pharmacy #[id number], Partial fill upon [...] Maintenance, 08/24/21 11:43:00 EDT, Inhaler, [facility]/pharmacy #[id number], Partial fill upon [...] Obese class I(Confirmed) Active Care Coordination [facility], [place] Active Angel, CC (Confirmed) Pre-existing diabetes mellitus Active affecting , antepartum(Confirmed) Poor vision(Confirmed)6 Active 1Managed by PCP. WEll controlled.2Self-manages. States currently stable. No medications.3Not seem at [facility] since 08/12/2016. Multiple no show in our center. She is seen by other provider Dr Matt Gutierrez by pharmacy records.4Managed by [id number] by PCP with [id number], states sees shadows and has blurry vision. Last eye doctor appointment was several years ago. Social History Social History Type Response Smoking Status Never (less than 100 in life time) entered on: 08/22/21 Sex Care Team PersonnelName: Abdon Beard MD Address: [address] [place] [address]
--- OUTSIDE RECORDS SUMMARY | 2022-03-31 18:26 | XMS_ITS | Continuity of Care Document ---
:1990 Author Organization [facility] Address [address] [place] [phone]- Care Team Providers Name Role Phone Abdon Beard MD Primary Care Physician Encounter [facility] Date(s): 08/25/21 - 09/24/21 [facility] [address] [place] [phone]- [place] Allergies, Adverse Reactions, Alerts Substance Reaction Severity [...] '943Admin Note: TD4 Admin Note: unknown exact [id number] Note: unknown exact date Medications acetaminophen 325 [...] 11:43:00 EDT, Route to Pharmacy Electronically, [facility]/pharmacy #[id number], Partial fill upon patient request ifthe prescription [...] 11:44:00 EDT, Route to Pharmacy Electronically, [facility]/pharmacy #[id number], Partial fill u... Start Date: 08/24/21 Status: OrderedLevemir FlexTouch 100 units/mL subcutaneous solution = 8 units, Subcutaneous Injection, Daily at bedtime, # 10 mL, 0 Refills, Maintenance, 08/24/21 11:26:00 EDT, Injection, [facility]/pharmacy #[id number], Partial fill upon patient request if the prescription is for a schedule II opioid drug., 168, cm, 08/24/21 10:3... Start Date: 08/24/21 Stop Date: 09/23/21 Status: OrderedMetoprolol Tartrate 25 mg oral tablet 2 tablet = 50 mg, By Mouth, 2 times a day, # 120 each, 4 Refills, Maintenance, 09/07/21 18:00:00 EDT, Tablet, [facility]/pharmacy [...] Dry Weight Start Date: 08/24/21 Status: OrderedPen [place], 30 G x 8 mm BD Ultra [...] Maintenance, 08/24/21 11:27:00 EDT, Chew Tablet, [facility]/pharmacy #[id number], [...] 0 Refills, Maintenance, 08/24/21 11:43:00 EDT, Inhaler, [facility]/pharmacy #[id number], Partial [...] class I(Confirmed) Active Care Coordination [facility], [place] Active Jeanne, CC (Confirmed) Pre-existing diabetes mellitus Active affecting , antepartum(Confirmed) Poor vision(Confirmed)6 Active 1Managed by PCP. WEll controlled.2Self-manages. States currently stable. No medications.3Not seem at [facility] since 08/12/2016. Multiple no show in our center. She is seen by other provider Dr Matt Gutierrez by pharmacy records.4Managed by [id number] by PCP with [id number], states sees shadows and has blurry vision. Last eye doctor appointment was several years ago. Social History Social History Type Response Smoking Status Never (less than 100 in life time) entered on: 08/22/21 Sex
--- OUTSIDE RECORDS SUMMARY | 2022-03-31 18:26 | XMS_ITS | Continuity of Care Document ---
:1990 Author Organization [facility] Address [address] [place] [id number]- Care Team Providers Name Role Phone Chirag CARLSON, Abdon Primary Care Physician Encounter [facility] Date(s): 11/09/21 - 12/15/21 [facility] [address] [place] [id number] Attending Physician: Cosme Willis MD Admitting Physician: Alba CARLSON, Cosme Referring Physician: Charu PEREZ, Nupur Murray Allergies, [...] '943Admin Note: TD4 Admin Note: unknown exact [id number] Note: unknown exact date Medications Alcohol Pads [...] Pharmacy Electronically, [facility]/pharmacy #[id number], Partial fill upon patient request if the prescriptio... Start Date: 12/13/21 Status: OrderedCoreg 25 mg oral tablet 50 mg, 2, tablet, By Mouth, 2 times a day, # 120 tablet, Refills 0, Tot. Refills 0, Maintenance, 12/13/21 14:16:00 EDT, Route to Pharmacy Electronically, [facility]/pharmacy #[id number], Partial fill upon patient request if the [...] Pharmacy Electronically, [facility]/pharmacy #[id number], Partial fill upon patient request if the [...] Dry Weight Start Date: 08/24/21 Status: OrderedPen [place], 30 G x 8 mm BD Ultra [...] Dr Matt Gutierrez by pharmacy records.4Managed by [id number] by PCP with Tylenol Social History Social History Type Response Smoking Status Never (less than 100 in life time) entered on: 08/22/21 Sex Patient Care team information PersonnelName: Chirag CARLSON, Abdon Address: Address: [address] [place] [address]
--- OUTSIDE RECORDS SUMMARY | 2022-03-31 18:26 | XMS_ITS | Continuity of Care Document ---
:1990 Author Organization [facility] Address [address] [place] [phone]- Care Team Providers Name Role Phone Chirag CARLSON, Abdon Primary Care Physician Encounter [facility] Date(s): 10/27/21 - 12/15/21 [facility] [address] [place] [id number] Attending Physician: Cosme Willis MD Admitting Physician: [...] '943Admin Note: TD4 Admin Note: unknown exact [id number] Note: unknown exact date Medications Alcohol Pads [...] 12/13/21 14:16:00 EDT, Route to Pharmacy Electronically, [facility]/pharmacy #[id number], Partial fill upon patient request if the prescriptio... Start Date: 12/13/21 Status: OrderedCoreg 25 mg oral tablet 50 mg, 2, tablet, By Mouth, 2 times a day, # 120 tablet, Refills 0, Tot. Refills 0, Maintenance, 12/13/21 14:16:00 EDT, Route to Pharmacy Electronically, [facility]/pharmacy #[id number], Partial fill upon patient request if the [...] 12/13/21 14:16:00 EDT, Route to Pharmacy Electronically, [facility]/pharmacy #[id number], Partial fill upon patient request if the prescription is for a schedule II op... Start Date: 12/13/21 Status: OrderedLevemir FlexTouch 100 units/mL subcutaneous solution = 10 units, Subcutaneous Injection, Daily at bedtime, # 15 mL, 0 Refills, Maintenance, 08/24/21 11:26:00 EDT, Injection, [facility]/pharmacy #[id number], Partial fill upon patient request if the prescription is fora schedule II opioid drug., 168, cm, 08/24/21 10:... Start Date: 08/24/21 Stop Date: 09/23/21 Status: OrderedNIFEdipine (Eqv-Procardia XL) 90 mg oral tablet, extended release 1 tablet = 90 mg, By Mouth, Daily, # 30 tablet, 0 Refills, Maintenance, 12/13/21 14:16:00 EDT, [facility]/pharmacy #[id number], Partial fill upon patient [...] 12/13/21 14:17:00 EDT, Route to Pharmacy Electronically, [facility]/pharmacy #[id number], Partial fill upon elisa... Start Date: 12/13/21 Status: OrderedPeak Flow Meter (Adult) See Instructions, # 1 each, Maintenance, Use when wheezing or chest tightness. Call for peak flow less than 200., 08/24/21 15:17:00 EDT, Supply, 168, cm, 08/24/21 11:41:00 EDT, Height, 75.8, kg, 06/09/21 11:38:00 EDT, Dry Weight Start Date: 08/24/21 Status: OrderedPen [place], 30 G x 8 mm BD Ultra [...] 0 Refills, Maintenance, 08/24/21 11:43:00 EDT, Inhaler, [facility]/pharmacy #[id number], Partial fill upon patient [...] 12/13/21 14:17:00 EDT, Route to Pharmacy Electronically, [facility]/pharmacy #[id number], Partial fill upon patient request if the prescription is f... Start Date: 12/13/21 Status: OrderedTylenol Extra Strength 500 mg oral tablet 2 tablet = 1,000 mg, By Mouth, Every 4 hours, PRN for pain, # 120 tablet, 0 Refills, Maintenance, 12/13/21 14:17:00 EDT, Tablet, [facility]/pharmacy #[id number], Partial fill upon patient [...] Dr Matt Gutierrez by pharmacy records.4Managed by [id number] by PCP with Tylenol Social History Social History Type Response Smoking Status Never (less than 100 in life time) entered on: 08/22/21 Sex Patient Care team information PersonnelName: Abdon Beard MD Address: Address: [address] [place] [address]
--- OUTSIDE RECORDS SUMMARY | 2022-03-31 18:27 | XMS_ITS | Continuity of Care Document ---
:1990 Author Organization [facility] Address [address] [place] [id number]- Care Team Providers Name Role Phone Abdon Beard MD Primary Care Physician [facility]counter [facility] Date(s): 07/28/21 - 08/27/[address] [id number] Allergies, Adverse Reactions, Alerts [...] '943Admin Note: TD4 Admin Note: unknown exact [id number] Note: unknown exact date Medications acetaminophen 325 [...] 08/24/21 11:43:00 EDT, Route to Pharmacy Electronically, [facility]/pharmacy #[id number], Partial fill upon patient request ifthe prescription is for a schedule II opioid drug... Start Date: 08/24/21 Status: Orderedduloxetine 30 mg oral enteric coated capsule 1 capsule = 30 mg, By Mouth, 2 times a day, # 180 capsule, 3 Refills, Maintenance, 08/24/21 11:44:00EDT, Capsule, [facility]/pharmacy #[id number], Partial fill upon patient request if [...] 08/24/21 11:44:00 EDT, Route to Pharmacy Electronically, [facility]/pharmacy #[id number], Partial fill u... Start Date: 08/24/21 Status: OrderedLevemir FlexTouch 100 units/mL subcutaneous solution = 8 units, Subcutaneous Injection, Daily at bedtime, # 10 mL, 0 Refills, Maintenance, 08/24/21 11:26:00 EDT, Injection, [facility]/pharmacy #[id number], Partial fill upon patient request if the prescription is for a schedule II opioid drug., 168, cm, 08/24/21 10:3... Start Date: 08/24/21 Stop Date: 09/23/21 Status: OrderedMetoprolol Tartrate 25 mg oral tablet 1.5 tablet = 37.5 mg, By Mouth, 2 times a day, # 90 tablet, 3 Refills, Maintenance, 08/24/21 11:44:00 EDT, Tablet, [facility]/pharmacy #[id number], Partial fill upon patient request if [...] Dry Weight Start Date: 08/24/21 Status: OrderedPen [place], 30 G x 8 mm BD Ultra [...] Refills, Maintenance, 08/24/21 11:27:00 EDT, Chew Tablet, [facility]/pharmacy #[id number], Partial fill upon patient request if the [...] Active Obese class I(Confirmed) Active Care Coordination [facility], [place] Active Angel, CC (Confirmed) Pre-existing diabetes mellitus Active affecting , antepartum(Confirmed) Poor vision(Confirmed)6 Active 1Managed by PCP. WEll controlled.2Self-manages. States currently stable. No medications.3Not seem at [facility] since 08/12/2016. Multiple no show in our center. She is seen by other provider Dr Matt Gutierrez by pharmacy records.4Managed by [id number] by PCP with [id number], states sees shadows and has blurry vision. Last eye doctor appointment was several years ago. Social History Social History Type Response Smoking Status Never (less than 100 in life time) entered on: 08/22/21 Sex
--- OUTSIDE RECORDS SUMMARY | 2022-03-31 18:27 | XMS_ITS | Continuity of Care Document ---
:1990 Author Organization [facility] Address [address] [place] [address]- Care Team Providers Name Role Phone Chirag CARLSON, [place] Primary Care Physician [place] [facility] [place]s): 02/26/22 - 03/10/[address] [address]- Encounter Diagnosis Chest pain (Final) - 02/26/22 Pulmonary edema (Final) - 02/26/22 Bilateral pleural effusion (Final) - 02/26/22 Heart failure (Final) - 02/26/22 Hypoxia (Final) - 02/26/22 CKD (chronic kidney disease) (Final) - 02/26/22 Discharge Disposition: A-D/C Home Attending Physician: Mariann Pineda MD Admitting Physician: Samuel Cedillo MD Referring Physician: [...] '[id number] Note: TD4 Admin Note: unknown exact [id number] Note: unknown exact date Medications Aspirin Low [...] 03/10/22 13:14:00 EST, Route to Pharmacy Electronically, [facility], Partial fill upon patient request if the prescription is for a schedul... Start Date: 03/10/22 Status: OrderedCrestor 5 mg oral tablet 1 tablet = 5 mg, By Mouth, Daily, # 30 tablet, 0 Refills, Maintenance, 01/19/22 13:30:00 EST, Tablet, [facility]/pharmacy #[id number], Partial fill upon patient request if the prescription is for a schedule II opioid drug., 160, cm, 01/19/22 8:55:00 EST, Height, 9... Start Date: 01/19/22 Status: Orderedduloxetine 30 mg oral enteric coated capsule 1 capsule = 30 mg, By Mouth, Daily, # 30 capsule, 1 Refills, Maintenance, 02/02/22 15:18:00 EST, Capsule, [facility]/pharmacy #[id number], Partial fill upon patient request if the prescription is for a schedule II opioid drug., 160, cm, 01/19/22 8:55:00 EST, Heigh... Start Date: 02/02/22 Status: OrderedFlonase 50 mcg/inh nasal spray 1 sprays, Nares, Both, 2 times a day, # 16 Gm, 0 Refills, Maintenance, 03/10/22 13:15:00 EST, [place],[facility], Partial fill upon patient request if the prescription is for a schedule IIopioid drug., 1 sprays Nares, Both 2 times a day,... Start Date: 03/10/22 Status: OrderedHYDROmorphone 2 mg oral tablet 1 mg, Tablet, By Mouth, Every 6 hours, PRN for Pain , Moderate, Routine, 03/09/22 16:42:00 EST Start Date: 03/09/22 Stop Date: 03/11/22 Status: DiscontinuedLevemir FlexTouch 100 units/mL subcutaneous solution = 8 units, Subcutaneous Injection, Daily at bedtime, (NOT TAKING & HASN'T IN MONTHS), # 10 mL, 0Refills, Maintenance, 03/10/22 13:13:00 EST, Injection, [facility], Partial fill upon patient request if the prescription is for a schedule... Start Date: 03/10/22 Status: Orderedmetoclopramide 5 mg oral tablet 1 tablet = 5 mg, By Mouth, Every 6 hours, PRN Nausea & Vomiting, for 14 days, # 56 tablet, 0 Refills, Acute 03/24/22 13:15:00 EST, 03/10/22 13:15:00 EST, Tablet, [facility], Partial fill upon patient request if the prescription is for a... Start Date: 03/10/22 Stop Date: 03/24/22 Status: OrderedNIFEdipine 30 mg oral tablet, extended release 30 mg, 1, tablet, By Mouth, Daily, # 30 tablet, Refills 0, Tot. Refills 0, Maintenance, 03/10/22 13:15:00 EST, Route to Pharmacy Electronically, [facility], Partial fill upon patient request if the prescription is for a schedule II opioi... Start Date: 03/10/22 Stop Date: 04/09/22 Status: OrderedNovoLOG FlexPen 100 units/mL injectable solution 11-12 UNITS, Subcutaneous Injection, 3 times a day before meals, (NOT TAKING & HASN'T IN MONTHS), # 10 mL, 0 Refills, Maintenance, 03/10/22 13:12:00 EST, Injection, [facility], Partial fill upon patient request if the prescription is for... Start Date: 03/10/22 Status: Orderedondansetron 4 mg oral tablet 1 tablet = 4 mg, By Mouth, Every 8 hours, PRN Nausea & Vomiting, # 12 tablet, 0 Refills, Maintenance, 03/10/22 13:16:00 EST, Tablet, [facility], Partial fill upon patient request if the prescription is for a schedule II opioid drug., 170... Start Date: 03/10/22 Status: OrderedoxyCODONE 5 mg oral tablet 5 mg, 1, tablet, By Mouth, Every 6 hours, PRN, for 3 days, # 12 tablet, Refills 0, Tot. Refills 0, Acute 03/13/22 13:14:00 EST, as needed for pain, 03/10/22 13:14:00 EST, Route to Pharmacy Electronically, [facility], Partial fill upon pa... Start Date: 03/10/22 Stop Date: 03/13/22 Status: Orderedpantoprazole 40 mg oral delayed release tablet 1 tablet = 40 mg, By Mouth, Daily, # 90 tablet, 0 Refills, Maintenance, 03/10/22 13:16:00 EST, EC Tablet, 170, cm, 03/10/22 10:58:00 EST, Height, 88, kg, 02/26/22 23:01:00 EST, Dry Weight Start Date: 03/10/22 Status: OrderedPen [place], 31 G x 5 mm BD Ultra [...] each, 0 Refills, Maintenance, 03/10/22 13:17:00 EST, [facility] Partial fill upon patient request if the prescription is for a schedule II opioid drug., 1 film Topically Every 72 hours, 170, cm, 01... Start Date: 03/10/22 Status: Orderedtorsemide 20 mg oral tablet 1 tablet = 20 mg, By Mouth, Daily, # 30 tablet, 0 Refills, Maintenance, 03/10/22 13:14:00 EST, Tablet, [facility], Partial fill upon [...] She is seen by other provider Dr Muhamed Muhamed by pharmacy records.4Managed by [id number] by PCP with Tylenol Results Radiology Reports Exam Date Time Procedure Performing Provider Status 03/03/22 11:48 AM Esophagus Barium Swallow Larissa Levy; Nicol (Verified) Notes:(Esophagus Barium Swallow) Reason For Exam: Dysphagia;DysphagiaRESULT: Esophagus Barium Swallow PROCEDURE: Esophagus Barium Swallow CLINICAL INDICATION: Reason: Dysphagia; Clinical Question(s): Stricture Esophagus COMPARISONS: None FLUOROSCOPY TIME: 1 minute 24 seconds EXPOSURE: 2378.8 uGym2 TECHNIQUE: Barium contrast esophagram was performed by Juanpablo Kirkpatrick PA-C. Patient studied semiupright only FINDINGS: Swallow: Normal oral and pharyngeal phases with no laryngeal penetration or subglottic aspiration. Esophagus: Normal in contour and mucosal appearance. Normal esophageal motility, with prompt transitof liquid barium into the stomach. No hiatal hernia. No spontaneous gastroesophageal reflux was appreciated during the study. A 13 mm barium tablet passed unimpeded into the stomach. No evidence of esophageal web, narrowing or outpouching. No esophageal obstruction. The stomach and proximal duodenum are grossly normal. Contrast promptly empties from the stomach into a nondilated duodenum. No gastric outlet obstruction. IMPRESSION: Unremarkable esophagram with findings as described. By undersigning and finalizing the report, the attending radiologist confirms he/she has personally reviewed and interpreted the images and agrees with the description of the findings. I have personally reviewed the images and I agree with this report. WSN: [id number] Ordering Physician: Letha Jenkins Dictated By: Gurdeep Graham Dictated Date/Time: 03/03/22 11:50 a Reviewed By: Joshua Chun MD, V Signed By: Joshua Chun MD, V Signed Date/Time: 03/03/22 11:55 am Transcribed By: ALEXIS Transcribed Date/Time: 03/03/22 11:43 am Exam Date Time Procedure Performing Provider Status 03/01/22 3:29 PM US Retroperitoneum Comp Ella Hernandez ( Verified) Notes:(US Retroperitoneum Comp) Reason For Exam: MYNOR;Other:RESULT: US Retroperitoneum Comp US Retroperitoneum Comp INDICATION/CLINICAL QUESTION: Reason: Other:; MYNOR; Clinical Question(s): Acute Renal Failure; Order Comment: US Retroperitoneum Ltd Prep / Acute Renal Failure. Patient Age 31 years COMPARISON: Retroperitoneal ultrasound 11/15/2021 FINDINGS: Right kidney: 11.1 cm in length. No hydronephrosis. Increased parenchymal echogenicity. No stones. No suspicious mass. Trace nonspecific perinephric fluid along the lateral aspect of the kidney Left kidney: 11.3 cm in length. No hydronephrosis. Increased parenchymal echogenicity. No stones. Nosuspicious mass. Urinary bladder: Normal. No stone, mass, wall thickening or debris. Bilateral ureteral jets are identified on color Doppler imaging suggesting ureterovesicular junction patency. IMPRESSION: No hydronephrosis. Mildly echogenic kidneys bilaterally which may be related to medical renal disease. WSN: [id number] Ordering Physician: Steve Esposito Dictated By: Michele Goncalves MD Dictated Date/Time: 03/01/22 4:06 pm Reviewed By: Michele Goncalves MD Signed By: Michele Goncalves MD Signed Date/Time: 03/01/22 4:06 pm Transcribed By: ALEXIS Transcribed Date/Time: 03/01/22 4:03 pm Exam Date Time Procedure Performing Provider Status 02/28/22 9:[address] Abdomen and Pelvis W/O Contrast Stephen Lucas (Verified) Notes:(CT Abdomen and Pelvis W/O Contrast) Reason For Exam: nausea and vomiting;PainRESULT: CT Abdomen and Pelvis W/O Contrast CT Abdomen and Pelvis W/O Contrast REASON: Pain; nausea and vomiting (small amount of coffee ground emesis). History of nonischemic cardiomyopathy, severe preeclampsia with demise 11/2021. TECHNIQUE: Spiral CT through the abdomen and pelvis without IV contrast formatted in 3 planes. This study was performed without oral contrast. Weight- based protocol using automatic tube modulation was used to optimize exposure parameters. CTDIvol Body: 20.20 mGy, DLP Body: 1129 mGy*cm. COMPARISON: 02/13/2022. FINDINGS: Conveyor Loader View Findings, Lines and Tubes: None. Visualized Chest: Moderate right and [id number] left pleural effusions unchanged from 02/26/2022. Mild atelectasis of the lower lobes. Unchanged small pericardial effusion. Diaphragm: Normal. Liver: Normal. Gallbladder: Status post cholecystectomy. Bile ducts: No biliary ductal dilation. Spleen: Normal. Pancreas: Normal. Adrenal glands: Normal. Kidneys and ureters: Unchanged punctate nonobstructing calcifications in both kidneys. Hyperdense appearance of the renal cortices relative to the pyramids compatible with known renal dysfunction (202:64). Trace amount of IV contrast in the renal collecting systems. No hydronephrosis or noncontrast evidence of suspicious masses. Bladder: IV contrast from prior CTA chest excreted in the urinary bladder. Reproductive organs: Unremarkable. Stomach, small bowel, and large bowel: No bowel obstruction or inflammatory changes. Mild sigmoid diverticulosis without acute diverticulitis. Appendix: Normal. Peritoneum and retroperitoneum: Decreased right posterior pararenal hematoma, now appearing as tracefocal thickening of the right posterior renal fascia measuring up to 0.4 cm in thickness, previously1.2 cm. Trace fluid in the cul-de-sac, likely physiologic. No pneumoperitoneum. No omental or mesenteric lesions. Lymph nodes: Unchanged mildly enlarged periaortic nodes measuring up to 1.1 cm. Unchanged mildly enlarged 1.1 cm right external iliac chain lymph node. Blood vessels: Normal. No aneurysm. Abdominal and pelvic wall: Mild edema. Bones: Unchanged subacute to chronic right anterolateral eighth rib fracture. Spine degenerative changes with on changed endplate sclerosis and subchondral cystic change at L4-L5 IMPRESSION: No new acute findings within the abdomen. Continued decrease in trace right posterior retroperitoneal hematoma, now appearing as trace focal thickening of the right posterior renal fascia, measuring 0.4 cm in thickness. Unchanged moderate right and small moderate left pleural effusions relative to 02/26/2022. Unchanged small pericardial effusion. I have personally reviewed the images and I agree with this report. WSN: [id number] Ordering Physician: Steve Esposito Dictated By: Kiara Campo DO Dictated Date/Time: 03/01/22 8:06 am Reviewed By: Mihai Allen MD Signed By: Mihai Allen MD Signed Date/Time: 03/01/22 8:11 am Transcribed By: ALEXIS Transcribed Date/Time: 03/01/22 7:40 am Exam Date Time Procedure Performing Provider Status 02/28/22 10:13 AM US Doppler Ext Lower Venous Bilat Mariajose Yeager; Auth (Verified) Notes:(US Doppler Ext Lower Venous Bilat) Reason For Exam: Swelling Extremities RESULT: US Doppler Ext Lower Venous Bilat US Doppler Ext Lower Venous Bilat Reason: Swelling Extremities; Clinical Question(s): Thrombosis COMPARISON: Venous Doppler ultrasound right lower extremity 12/13/2021. IMAGING TECHNIQUE: Ultrasound of the veins from the groin through the calf was performed using grayscale, color, and spectral Doppler ultrasound assessing for complete compressibility and normal flow characteristics. FINDINGS: RIGHT LOWER EXTREMITY: Common femoral vein: Patent. No thrombosis. Femoral vein: Patent. No thrombosis. Popliteal vein: Patent. No thrombosis. Gastrocnemius veins: The visualized portions are patent without evidence of thrombosis. Peroneal veins: The visualized portions are patent without evidence of thrombosis. Posterior tibial veins: The visualized portions are patent without evidence of thrombosis. LEFT LOWER EXTREMITY: Common femoral vein: Patent. No thrombosis. Femoral vein: Patent. No thrombosis. Popliteal vein: Patent. No thrombosis. Gastrocnemius veins: The visualized portions are patent without evidence of thrombosis. Peroneal veins: The visualized portions are patent without evidence of thrombosis. Posterior tibial veins: The visualized portions are patent without evidence of thrombosis. OTHER FINDINGS: IMPRESSION: No sonographic evidence of deep venous thrombosis. I have personally reviewed the images and I agree with this report. WSN: [id number] Ordering Physician: Jessica Garrison Dictated By: Panfilo Mathis MD Dictated Date/Time: 02/28/22 10:29 a Reviewed By: Constanza Fofana MD Signed By: Constanza Fofana MD Signed Date/Time: 02/28/22 10:34 am Transcribed By: ALEXIS Transcribed Date/Time: 02/28/22 10:20 am Exam Date Time Procedure Performing Provider Status 02/27/22 5:06 PM Abdomen AP Rodney Rajput ([facility] ed) Notes:(Abdomen AP) Reason For Exam: Nausea/VomitingRESULT: XR Abdomen AP XR Abdomen AP supine view INDICATION/CLINICAL QUESTION: Nausea and vomiting COMPARISON: 09/23/2021 FINDINGS: Normal bowel gas pattern. No evidence of obstruction. No evidence of pneumoperitoneum. No organomegaly, masses or calcifications. No acute bone findings. IMPRESSION: Normal. WSN: [id number] Ordering Physician: Steve Esposito Dictated By: Preet Gonzales MD Dictated Date/Time: 02/27/22 5:13 pm Reviewed By: Preet Gonzales MD Signed By: Preet Gonzales MD Signed Date/Time: 02/27/22 5:13 pm Transcribed By: ALEXIS Transcribed Date/Time: 02/27/22 5:13 pm Exam Date Time Procedure Performing Provider Status 02/26/22 5:[address] Angio Chest María Armijo; Auth (Domonique ified) Notes:(CT Angio Chest) Reason For Exam: PE suspected, Intermediate prob, positive D-dimer,;Other:RESULT: CT Angio Chest EXAMINATION: CT Angio Chest Hx of Present Illness: pt c o left sided chest pain with radiation to left shoulder and left side ofribs x3 days; pt also reports +n v d, dizziness, headache, and dyspnea at rest, worse with exertion;Reason: Other:; PE suspected, Intermediate prob, positive D-dimer,; Clinical Question(s): Pulmonary Embolism. TECHNIQUE: Spiral CTA of the chest was performed after rapid IV contrast administration without cardiac gating, triggered by an KECIA on the main pulmonary artery. Images are formatted in multiple planesusing 2-D multiplanar and 3-D maximum intensity projection. 50 cc of Omnipaque 300 was administered i ntravenously. Weight-based protocol using automatic tube modulation was used to optimize exposure parameters. CTDIvol Body: 8.20 mGy, DLP Body: 318 mGy*cm. COMPARISONS: Chest x-ray from earlier today and CT angiogram of the chest dated 04/20/2021. ANGIOGRAPHIC FINDINGS: No pulmonary embolism to the subsegmental level. Normal caliber pulmonary arteries. No acute aortic abnormality seen on this study performed without cardiac gating. NON-ANGIOGRAPHIC FINDINGS: Conveyor Loader View Findings, Lines and Tubes: None. Trachea and Airways: Patent without evidence of tracheal or endobronchial lesion. Lungs and Pleura: There is a moderate right and small left pleural effusion. No evidence of pneumothorax. There is compressive atelectasis in both lower lobes. Mediastinum and winston: No mass or hematoma. No mediastinal or hilar lymphadenopathy. No esophageal abnormality. Heart: Heart is normal in size. There is a small to moderate pericardial effusion. Chest Wall Soft Tissues: Normal. Diaphragm and upper abdomen: No significant abnormality. Status post cholecystectomy. Bones: No acute abnormality. IMPRESSION: 1. No evidence of pulmonary embolism. 2. Moderate right and small left pleural effusions with mild adjacent compressive atelectasis. 3. Small to moderate pericardial effusion. WSN: [id number] Ordering Physician: Magui Villalpando Dictated By: Emy Campbell MD Dictated Date/Time: 02/26/22 5:40 pm Reviewed By: Emy Campbell MD Signed By: Emy Campbell MD Signed Date/Time: 02/26/22 5:40 pm Transcribed By: ALEXIS Transcribed Date/Time: 02/26/22 5:26 pm Exam Date Time Procedure Performing Provider Status 02/26/22 3:13 PM Chest 2 Views Frontal and Lat Juan F , Nils; Au th (Verified) Notes:(Chest 2 Views Frontal and Lat) Reason For Exam: Shortness of Breath RESULT: Chest 2 Views Frontal and Lat AP and lateral chest x-ray dated February 26, 2022. Comparison films are from February 13, 2022. HISTORY: Shortness of breath. FINDINGS: The cardiac silhouette is at the upper limits of normal for size and unchanged. Mild pulmonary vascular prominence and interstitial thickening are demonstrated. No airspace consolidation or pleural effusion is noted. Visualized osseous structures are unremarkable. IMPRESSION: Findings are consistent with a mild congestive heart failure pattern. Examination 16835. Thank you for allowing me to participate in the care of this patient. WSN: [id number] Ordering Physician: Magui Villalpando Dictated By: Kareem Ackerman MD Dictated Date/Time: 02/26/22 3:17 pm Reviewed By: Kareem Ackerman MD Signed By: Kareem Ackerman MD Signed Date/Time: 02/26/22 3:17 pm Transcribed By: ALEXIS Transcribed Date/Time: 02/26/22 3:17 pm Vital Signs Most recent to oldest 1 2 3 [Reference Range]: Height 170 cm 170 cm 170 cm (03/10/22 10:58 AM) (03/09/22 10:04 PM) (03/09/22 5 :43 AM) Weight 80.0 kg 86.0 kg 79.9 kg (03/07/22 2:16 AM) (03/06/22 10:48 AM) (03/05/22 11:1 0 AM) Oxygen Saturation [94-100 100 % 99 % 98 % %] (03/10/22 10:58 AM) (03/10/22 5:00 AM) (03/09/22 10 :04 PM) Pulse Rate [55-90 bpm] 91 bpm 81 bpm 112 bpm *H* (03/10/22 5:00 AM) *H* (03/10/22 10:58 AM) (03/09/22 10:0 4 PM) Body Mass Index 28.06 kg/m2 28.55 kg/m2 30.45 kg/m2 [18.5-24.99 kg/m2] *H* *H* *>HHI* (03/01/22 2:11 AM) (02/26/22 11:01 PM) (02/26/22 6:54 PM) Blood Pressure 164/91 mm Hg 144/85 mm Hg 122/74 mm Hg [90-138/55-84 mm Hg] *H* *H* (03/09/22 10 :04 PM) (03/10/22 10:58 AM) (03/10/22 5:00 AM) Respiratory Rate [16-30 18 br/min 18 br/min 18 br/mi n br/min] (03/10/22 12:33 PM) (03/10/22 11:33 AM) (03/10/22 1 0:58 AM) Temperature [96.8-100.4 98.2 DegF 97.8 DegF 97.7 Deg F DegF] (03/10/22 10:58 AM) (03/10/22 5:00 AM) (03/09/22 10 :04 PM) Liters per Minute 2 L/min 2 L/min 2 L/min (03/09/22 5:43 AM) (03/08/22 10:51 PM) (03/08/22 4: 50 AM) Mode of Delivery (Oxygen) Room air Room air Room a ir (03/10/22 10:58 AM) (03/10/22 5:00 AM) (03/09/22 10 :04 PM) Blood pressure sites Arm, right Arm, right Arm, right (03/10/22 10:58 AM) (03/10/22 5:00 AM) (03/09/22 10 :04 PM) Temperature Route Oral Oral Oral (03/10/22 10:58 AM) (03/10/22 5:00 AM) (03/09/22 10 :04 PM) Dry Weight 88 kg 88 kg 88 kg (02/26/22 11:01 PM) (02/26/22 6:54 PM) (02/26/22 12:40 PM) Weight Obtained Via Bed scale Bed scale Bed scale (03/07/22 2:16 AM) (03/05/22 5:27 AM) (03/04/22 5:30 AM) Dry Weight Obtained Via Patient/family stated (02/26/22 12:29 PM) Social History Social History Type Response Smoking Status Never (less than 100 in life time) entered on: 08/22/21 Sex History and physical note Meli CARLSON, Jessica Sands: PERFORM, MODIFY Event Display: History and Physical Hospital Authored Date: Patient: ??SHEREEN TAYLOR ? Age:??31 Years?Sex:??Female?:??1990?? Chief Complaint/Reason for Consultation from home reports chest pain x3 days with cough and diff breathing; pt states that she thinks thereis fluid around her lungs and heart and needs to be drained legally blind 12-lead shows right bundle History of Present Illness 02/26/2022. ?? 31-year-old female with PMH including HTN, DM, diabetic nephropathy, CKD, nonischemic cardiomyopathy, HFrEF (EF 40 to 45% on echo done 11/2021), mild mitral regurgitation, mild tricuspid regurgitation, ASD, asthma, legally blind, history of preeclampsia resulting in demise requiring (1 ), depression.?? Patient presented to ER with chest pain. ?? Patient complains of chest pain for about 3 days. ??The pain is intermittent,??central, retrocardiac, radiates to the shoulder and back,??states about 30 minutes,??severe 10/10,??feels like squeezing and sharp, worse with??coughing/deep breathing.?? Also complains of shortness of breath,??slightly better after??getting??oxygen. ??Also has dry cough. ??No fever, chills.?? Denies abdominal pain. ??Hasnausea and vomited about 4 times. ??No diarrhea. ??No urinary symptoms.?? Denies leg pain. ??Has??stable leg swelling. ?? In ER patient was afebrile, initially slightly tachycardic 100s, blood pressure elevated 188/97, currently 181/107, initially in room air, then was placed on 2 L oxygen??during my assessment patient was??saturating 99% on.?? 2 L oxygen, when oxygen was taken off she??was able to maintain saturation at 93 to 94%. ??Her labs shows baseline anemia 8.5, elevated D-dimer 5.2, non-anion gap metabolic acidosis, creatinine 3.1 (seems to be similar to her baseline??3-4, however last creatinine was 2.5), normal liver enzymes and lipase, normal magnesium, negative.?? COVID-negative.?? Her high-sensitivity troponin 117, 112, 115.?? proBNP 28,000.?? EKG reviewed by myself, sinus rhythm with heart rate of 106, QTc 518, RBBB.?? Chest x-ray reviewed by myself, agree with the report that shows mild congestive heart failure pattern. ?? CT angiogram of the chest: IMPRESSION: 1. No evidence of pulmonary embolism. 2. Moderate right and small left pleural effusions with mild adjacent compressive atelectasis. 3. Small to moderate pericardial effusion. ?? Patient was given Lasix 40 mg IV and admitted for further management. Review of Systems All systems reviewed and negative except as in HPI. Objective Measurements?? Height: 170 cm (02/26/22) Weight: 82.5 kg (02/26/22) Dry Weight: 88 kg (02/26/22) Body Mass Index:??28.55 kg/m2??High (02/26/22) ? Vital Signs?? Temperature: 97.4 DegF (02/26/22 23:01:00) Temperature Route: Temporal (02/26/22 23:01:00) Pulse Rate:??104 bpm??High (02/26/22 23:01:00) Respiratory Rate: 18 br/min (02/26/22 23:01:00) Systolic Blood Pressure:??170 mm Hg??High (02/26/22 23:01:00) Diastolic Blood Pressure:??122 mm Hg??High (02/26/22 23:01:00) Blood pressure sites: Arm, left (02/26/22 23:01:00) Mean Arterial Pressure: 138 mm Hg (02/26/22 23:01:00) Pulse Pressure: 48 mm Hg (02/26/22 23:01:00) Oxygen Saturation: 96 % (02/26/22 23:01:00) Liters per Minute: 2 L/min (02/26/22 18:54:00) Mode of Delivery (Oxygen): Room air (02/26/22 21:59:00) Early Warning Score: 3 (02/26/22 23:11:40) ? Physical Exam Constitutional: ??Alert,??no acute distress, co-operative, lying on the bed,??on 2L oxygen. ? Mental state: Oriented x 3. Head: ??Normocephalic, atraumatic. ?? Eye:??Right eye corneal opacity. ENT: No discharge. Neck: ??Supple,??no JVD. Cardiovascular: ??S1, S2. Regular rhythm. No MRG. Respiratory: ??Lungs are clear to auscultation b/l, decreased breath sound??on the basis.?? Mild crackle. Gastrointestinal: ??Soft, Nontender, Non distended, ??Normal bowel sounds.?? Genitourinary: No costovertebral angle tenderness. Neurological: ??Cranial nerves intact. Motor and sensory intact. Back: ??Nontender. 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 Bilateral leg edema,??right slightly more than left. Hematology: No lymphadenopathy Skin: ??Warm, dry. Psychiatric: ??Cooperative.?? Assessment/Plan Diagnoses Bilateral pleural effusion ??(J90) CKD (chronic kidney disease) ??(N18.9) Chest pain ??(R07.9) Chest pain ??(R07.9) Elevated d-dimer ??(R79.89) Heart failure ??(I50.9) Hypoxia ??(R09.02) Pericardial effusion ??(I31.3) Pulmonary edema ??(J81.1) QT prolongation ??(R94.31) SOB (shortness of breath) ??(R06.02) ?? Assessment:??31-year-old female with PMH including HTN, DM, diabetic nephropathy, CKD, nonischemic cardiomyopathy, HFrEF (EF 40 to 45% on echo done 11/2021), mild mitral regurgitation, mild tricuspid regurgitation, ASD, asthma, legally blind, history of preeclampsia resulting in demise requiring C- section (12/09/2021), depression. Patient presented to ER with chest pain. ?? Chest pain (R07.9):??. Complains of central chest pain that radiates around to the back.?? Pain is squeezing and sharp in nature, worse with deep eating/coughing.?? So far??high- sensitivity troponin has been flat, ruling out any ACS.?? High-sensitivity troponin is slightly more than??what she had during last admission. ??Likely her baseline, may be related to renal failure.?? Denies any??tenderness??on??palpation.?? Patient received??Dilaudid??that has resolved the pain at this time.?? EKG does not suggest any pericarditis. ??Patient does have some pleural and??pericardial effusion.?? We will continue telemetry. ??Pain control with Dilaudid. ?? SOB (shortness of breath) (R06.02):??. Hypoxia (R09.02):??. Heart failure (I50.9):??. Pulmonary edema (J81.1):??. Bilateral pleural effusion (J90):??. Pericardial effusion (I31.3):??. Patient??complains of shortness of breath, and was found to be??hypoxic.?? Has??bilateral leg edema, has bilateral??pleural effusion, pericardial effusion.?? Has elevated??proBNP level. ??Consistent with??acute??exacerbation of??chronic heart failure.?? No sign of any infection so far. ??Patient is af ebrile.?? PE ruled out with CT angiogram.?? Heart acute??exacerbation of heart failure??is likely related to??noncompliance with medication. ?? Continue telemetry. Continue Lasix 40 mg IV twice daily. Maintain negative balance. Patient is already on??beta-mohamud. Is elevated seems to be on hold??since last admission due to renal failure. Monitor oxygen saturation and supplement with oxygen as required. Please follow-up with chest x-ray??to evaluate??pleural effusion, if??not resolving may need pleural tap. Consult cardiology for chest pain,??CHF exacerbation, pericardial effusion. ?? Elevated d-dimer (R79.89):??. CT angiogram ruled out any PE. Does have bilateral leg edema with slightly??more in the right??leg. ??We will check??venous Doppler. ?? QT prolongation (R94.31):??. We will monitor and correct potassium and magnesium level. Avoid QT prolonging medication. ?? Chronic conditions/Home medication: Patient is unable to provide me her medication list.?? Medication reconciliation done based on??recent medication refill pattern. ??Please check with her pharmacy in the morning. HTN:??Continue Coreg and nifedipine. DM:??It seems patient is not taking her insulin anymore. ??We will monitor POC glucose and SSI. CKD: Creatinine??3.1 which seems??her baseline??3-4, however??recent??creatinine was 2.5. ??Monitorrenal function, avoid nephrotoxic medication. Asthma:??Nebs as needed. Anxiety/depression:??Continue??Cymbalta. Continue aspirin and rosuvastatin. ? VTE Prophylaxis:??heparin s/c ?VTE Prophylaxis Assessment:??VTE Prophylaxis Ordered ?? Code Status:??full code ?Order Code Status:??Code Status Ordered ?? Discharge Planning:? I spent??75 minutes in patient care. ?? Histories Allergies Allergies ?(Active and Proposed [...] Care Coordination [facility], Hakan Angel, CC CKD (chronic kidney disease), [...] 1 Diabetes Mellitus Durable Medical Equipment ([place], 30 G x 8 mm BD Ultra [...] & STARTED NEW DOSE) Miscellaneous Rx (FREESTYLE LITE LANCETS)?See Instructions?GLUCOSE MONITORING [...] Inpatient Medications Medications (18) Active SCHEDULED: (10) Aspirin 81 mg EC Tablet (aspirin 81 mg oral delayed release tablet) ??162 mg, By Mouth, Daily Carvedilol 25 mg Tablet (carvedilol 25 mg oral tablet) ??25 mg, By Mouth, 2 times a day Duloxetine 30 mg Capsule (DULoxetine Capsule) ??30 mg, By Mouth, Daily Furosemide Inj (Lasix ??Inj) ??40 mg 4 mL, IV Push Slowly, 2 times a day Heparin 5000 units/mL Inj (1 mL) (Heparin Inj) ??5,000 units 1 mL, Subcutaneous Injection, 3 times a day influenza virus vaccine, inactivated (Influenza, Quadrivalent Vaccine (Fluzone Quad)) ??0.5 mL, Intramuscular, Once Insulin Lispro 100 units/mL Inj (3mL) (Insulin LISPRO Sliding Scale) ??2-10 units, Subcutaneous Injection, 3 times a day before meals NaCl 0.9% Flush 3ml (NaCL 0.9% Flush) ??3 mL, IV Push, Every 8 hours NIFEdipine 60 mg ER Tablet (NIFEdipine 60 mg oral tablet, extended release) ??60 mg, By Mouth, Daily Rosuvastatin 5 mg Tablet (Crestor 5 mg oral tablet) ??5 mg, By Mouth, Daily CONTINUOUS: (0) PRN: (8) [...] Recent Labs BLOOD COUNT & DIFF WBC 4.9 k/mm3 ()?? 02/26/2022 13:23 RBC 3.06 m/mm3 (Low)?? 02/26/2022 13:23 Hgb 8.5 Gm/dL (Low)?? 02/26/2022 13:23 Hct 26.3 % (Low)?? 02/26/2022 13:23 MCV 85.9 femtoliters ()?? 02/26/2022 13:23 MCH 27.8 pg ()?? 02/26/2022 13:23 MCHC 32.3 g/dL (Low)?? 02/26/2022 13:23 Platelet Count 182 k/mm3 ()?? 02/26/2022 13:23 RDW-SD 48.0 femtoliters (High)?? 02/26/2022 13:23 MPV 11.8 femtoliters ()?? 02/26/2022 13:23 Nucleated RBC (Automated) 0.0 #/100 WBC'S ()?? 02/26/2022 13:23 Abs. NRBC 0.0 k/mm3 ()?? 02/26/2022 13:23 Abs. Neut 3.4 k/mm3 ()?? 02/26/2022 13:23 Abs. Lymph 0.9 k/mm3 ()?? 02/26/2022 13:23 Abs. [place] 0.4 k/mm3 ()?? 02/26/2022 13:23 Abs. Eo 0.1 k/mm3 ()?? 02/26/2022 13:23 Abs. Baso 0.0 k/mm3 ()?? 02/26/2022 13:23 Neut % 68.9 % ()?? 02/26/2022 13:23 Lymph % 18.7 % ()?? 02/26/2022 13:23 [place] % 9.1 % ()?? 02/26/2022 13:23 Eos % 2.5 % ()?? 02/26/2022 13:23 Baso % 0.6 % ()?? 02/26/2022 13:23 Imm Gran 0.2 % ()?? 02/26/2022 13:23 Abs. Imm Gran 0.0 k/mm3 ()?? 02/26/2022 13:23 ?? CARDIAC Nt-Probnp 01409 pg/mL (High)?? 02/26/2022 13:23 High Sensitivity Troponin (HSTnT) 115 ng/L (Critical)?? 02/26/2022 19:42 ?? CHEM GENERAL Sodium 139 mmol/L ()?? 02/26/2022 13:23 Potassium 4.0 mmol/L ()?? 02/26/2022 13:23 Chloride 107 mmol/L ()?? 02/26/2022 13:23 Bicarbonate Level 20 mmol/L (Low)?? 02/26/2022 13:23 Anion Gap 12 ()?? 02/26/2022 13:23 Glucose Level 197 mg/dL (High)?? 02/26/2022 13:23 Glucose, POC 168 mg/dL (High)?? 02/26/2022 20:22 BUN 41 mg/dL (High)?? 02/26/2022 13:23 Creatinine-Blood 3.1 mg/dL (High)?? 02/26/2022 13:23 Estimated GFR Creatinine 19 ML/MIN/1.73 M2 ()?? 02/26/2022 13:23 Calcium 8.5 mg/dL (Low)?? 02/26/2022 13:23 Magnesium 2.1 mg/dL ()?? 02/26/2022 13:23 Protein, Total 5.6 Gm/dL (Low)?? 02/26/2022 13:23 Albumin 3.0 Gm/dL (Low)?? 02/26/2022 13:23 AG Ratio 1.2 ()?? 02/26/2022 13:23 Alkaline Phosphatase 73 units/L ()?? 02/26/2022 13:23 Lipase 28 units/L ()?? 02/26/2022 13:23 AST (SGOT) 12 units/L ()?? 02/26/2022 13:23 ALT (SGPT) 11 units/L ()?? 02/26/2022 13:23 Bilirubin, Total 0.5 mg/dL ()?? 02/26/2022 13:23 ?? COAG D-Dimer 5.20 mg/L FEU (High)?? 02/26/2022 14:25 ?? ENDOCRINE/TUMOR MARKER Serum Qual NEGATIVE mIU/mL ()?? 02/26/2022 13:23 ?? VIROLOGY Influenza A PCR NEGATIVE ()?? 02/26/2022 13:36 Influenza B PCR NEGATIVE ()?? 02/26/2022 13:36 RSV PCR NEGATIVE ()?? 02/26/2022 13:36 COVID-19 PCR Specimen Source NASAL ()?? 02/26/2022 13:36 COVID-19 PCR Result NEGATIVE ()?? 02/26/2022 13:36 ? Microbiology ?? COVID-19, RSV, and Flu A/B, Rapid PCR?? Completed?? Source: Nasal Body Site: Nose Collected Dt/Tm: 02/26/2022 13:00 Last Updated Dt/Tm: 02/26/2022 15:02 ? EKG study Event Display: ECG 12-Lead Authored Date: Please click on pdf link to open report Event Display: ECG 12-Lead Authored Date: Ventricular Rate: 86 BPM Atrial Rate: 86 BPM P-R Interval: 160 ms QRS Duration: 136 ms Q-T Interval: 426 ms QTC Calculation(Bazett): 509 ms P Hull: 49 degrees R Hull: -9 degrees T Hull: 57 degrees Normal sinus rhythm Right bundle branch block Abnormal ECG When compared with ECG of 02-MAR-2022 11:41, T wave inversion no longer evident in Lateral leads Confirmed by MICHAEL QURESHI DO ([id number]) on 03/10/2022 4:57:15 PM [place]: MICHAEL QURESHI DO Event Display: EKG Authored Date: Event Display: ECG 12-Lead Authored Date: Please click on pdf link to open report Event Display: ECG 12-Lead Authored Date: Ventricular Rate: 93 BPM Atrial Rate: 93 BPM P-R Interval: 156 ms QRS Duration: 140 ms Q-T Interval: 408 ms QTC Calculation(Bazett): 507 ms P Hull: 41 degrees R Hull: -2 degrees T Hull: 119 degrees Normal sinus rhythm Possible Left atrial enlargement Right bundle branch block T wave abnormality, consider lateral ischemia Abnormal ECG When compared with ECG of 28-FEB-2022 16:23, T wave inversion now evident in Lateral leads Confirmed by MAXWELL LÓPEZ ([id number]) on 03/08/2022 1:23:58 PM [place]: MAXWELL LÓPEZ Event Display: EKG Authored Date: Event Display: ECG 12-Lead Authored Date: Please click on pdf link to open report Event Display: ECG 12-Lead Authored Date: Ventricular Rate: 89 BPM Atrial Rate: 89 BPM P-R Interval: 160 ms QRS Duration: 140 ms Q-T Interval: 438 ms QTC Calculation(Bazett): 532 ms P Hull: 60 degrees R Hull: -3 degrees T Hull: 34 degrees Normal sinus rhythm Right bundle branch block Abnormal ECG When compared with ECG of 27-FEB-2022 10:27, Nonspecific T wave abnormality, improved in Inferior leads Confirmed by MAU LORENZO ([id number]) on 03/01/2022 12:55:54 PM [place]: MAU LORENZO Event Display: EKG Authored Date: Heart Event Display: Echocardiogram - Complete Authored Date: Transthoracic Echocardiography Report (TTE) Patient Demographics Patient Name RANGEL, Date of Study 03/01/2022 [employer] Gender Female Facility Race Ethnicity or Date of 1990 Height: 66.93 inches Age 31 year(s) Weight: 178.58 pounds Accession Number [id number] BSA: 1.93 m2 Room Number [id number] BMI: 28.03 kg/m2 Referring Physician Cam SIGALA Interpreting Carlos Werner MD Physician [employer] Sales Representative Emmie Reynolds Indications Pericardial effusion. Clinical History CHEST PAIN SOB PULMONARY EDEMA BILATERAL PLEURAL EFFUSION HF HYPOXIA CKD PERICARDIAL EFFUSION ELEVATED D-DINER QT PROLONGATION Study Data Type of Study TTE procedure:Echo 2D Limited or Follow-up. Study Date03/01/2022 Start Time: 02:06 PM [place] [facility] [place] Status: Bedside Patient Status: Routine Technical Quality: Good Blood Pressure:148/59 mmHg EKG: Sinus tachycardia HR: 97 bpm 2D Measurements LV Diastolic Dimension: 4.8 cm LV Systolic Dimension: 3.2 cm LV Septum Diastolic: 1.3 cm LV PW Diastolic: 1.3 cm LA Dimension: 4.5 cm Doppler Measurements AV Peak Velocity: 173 cm/s MV Peak E-Wave: 105 cm/s AV Peak Gradient: 11.97 mmHg MV Peak A-Wave: 64.6 cm/s AV Mean Gradient: 8 mmHg MV E/A Ratio: 1.63 AV VTI:32.6 cm MV P1/2t: 31 msec LVOT Peak Velocity: 108 cm/s LVOT VTI18.3 cm MV Deceleration Time: 107 msec MV Area (PHT): 7.1 cm2 E' Septal Velocity: 6.09 cm/s E' Lateral Velocity: 9.36 cm/s E/Med E':17.01806 E/Lat E':11.92898 Cardiac Anatomy Left Ventricle/Interventricular Septum The left ventricular size is normal. The left ventricular wall thickness is mildly increased. The LV systolic function is mildly reduced. The left ventricular ejection fraction is 40-50%. Cannot assess regional wall motion abnormalities due to poor endocardial definition. Diastolic function is indeterminate. Left Atrium/Interatrial Septum The left atrium is dilated. Aortic Valve The aortic valve is trileaflet. There is no aortic stenosis. There is no aortic regurgitation. Mitral Valve The mitral valve appears mildly thickened. There is trace mitral regurgitation. Right Ventricle The right ventricle is moderately dilated. Right ventricular systolic function appears preserved. Right Atrium The right atrium is dilated. Pulmonic Valve The pulmonic valve is poorly visualized. There is trace pulmonic regurgitation. Tricuspid Valve The tricuspid valve is grossly normal. There is moderate to severe tricuspid valve regurgitation (only limited assessment) Pumonary Artery An accurate pulmonary artery pressure could not be obtained. Venous Structures Inferior vena cava inspiratory collapse is blunted. Pericardium/Extracardiac There is a trace to small pericardial effusion. There is no evidence of cardiac tamponade. Summary 1) The LV systolic function is mildly reduced. The left ventricular ejection fraction is 40-50%. Cannot assess regional wall motion abnormalities due to poor endocardial definition 2) The left ventricular wall thickness is mildly increased. 3) The right ventricle is moderately dilated. Right ventricular systolic function appears preserved. 4) The tricuspid valve is grossly normal. There is moderate to severe tricuspid valve regurgitation (only limited assessment) 5) There is a trace to small pericardial effusion. There is no evidence of cardiac tamponade. Comparison Comparison is made to the study of December 02, 2021. Degree of TR appears worse on limited assessment Signature Event Display: Echocardiogram - Complete Authored Date: Note Maria C Antoine RN: PERFORM Event Display: Discharge/Transfer Note Hospital Authored Date: Nursing Discharge Note Entered On: 03/10/2022 17:24 EST Performed On: 03/10/2022 17:21 EST by Maria C Antoine RN Nursing Discharge Note 2 Discharge Time : 03/10/2022 17:06 EST Discharge Level of Care at Discharge : Home/Senior Care/Foster Care Discharge [employer](v001) : Christopher Paperless Transaction Management Patient Left Unit Via : Wheelchair Patient Accompanied Off Unit with : Significant other DC Instructions Provided & Signed by Pt : Unable Patient Understands D/C Instructions : Yes Verbalized Understanding of D/C Plan By : Family, Patient Patient Instructions Discharge Signed : Yes Discharge Comments : patient refused to take any medications or allow for her diner POC to be done. only medication she took was pain medication. MD Cunningham aware. reviewed discharge with family that came to pick patient up. Did Pt have Specialty Bed or Wound Vac : No Elina BETH, Maria C - 03/10/2022 17:21 Cleo Marmolejo DO P: PERFORM Event Display: Discharge/Transfer Note Hospital Authored Date: [id number] Patient: ??SHEREEN TAYLOR ? Age:??31 Years?Sex:??Female?:??1990?? Patient Information Discharge Location: Primary Care Physician: Abdon Beard MD Admit Date/Time: 02/26/22 19:02 Discharge Disposition Discharge Disposition: Home: No Services Discharge Diagnosis Bilateral pleural effusion (J90) CKD (chronic kidney disease) (N18.9) Chest pain (R07.9) Elevated d-dimer (R79.89) Heart failure (I50.9) Hypoxia (R09.02) Pericardial effusion (I31.3) Pulmonary edema (J81.1) QT prolongation (R94.31) SOB (shortness of breath) (R06.02) ?? _ Discharge Medications Aspirin (Aspirin Low Dose 81 mg oral delayed release tablet)?2?tab(s)?162?Milligram?By Mouth?Daily Carvedilol (carvedilol 12.5 mg oral tablet)?12.5?Milligram?1?tablet?By Mouth?2 times a day Duloxetine (duloxetine 30 mg oral enteric coated capsule)?1?capsule?30?Milligram?By Mouth?Daily Fluticasone Nasal (Flonase 50 mcg/inh nasal spray)?1?spray(s)?Nares, [...] torsemide (torsemide 20 mg oral tablet)?1?tab(s)?20?Milligram?By Mouth?Daily ?? Medications Started Insulin, Pantoprazole, Flonase, Torsemide, Zofran, Metoclopramide Medications Discontinued Metoprolol, Lasix, hydralazine, lisinopril, amlodipine Doses Changed carvedilol 12.5 mg bid nifedipine 30 mg daily Allergies Allergies ?(Active and Proposed Allergies Only) morphine? (Severity: Unknown severity, Onset: Unknown) ?Reactions: Itching Zosyn? (Severity: Severe, Onset: Unknown) ?Reactions: angioedema ?Comments: Tolerates cefazolin vancomycin? (Severity: Unknown severity, Onset: Unknown) ?Reactions: Tightness in throat ?Comments: Tolerates again 05/21 ?Comments: Per chart: pt tolerated vanco on 05/18/21 PCP Follow-Up/Heads-Up Patient presented with chest pain was admitted for an ACS work-up which was negative. Hospital??course??complicated by??upper GI bleed that resolved. ??She will be having outpatient follow-up with GI. Hospital course also complicated by hypertension and hypotension, at 1 point requiring IV medicines to control blood pressure, then became hypotensive when ready for discharge.?? Wonder if??hypotensionrelated to??opioid use that she was receiving in the hospital. We decreased??her hypertensive regimen to just carvedilol 12.5 and a nifedipine 30 daily. ??Anticipate??she may need titrating up of her blood pressure regimen as an outpatient. Please follow-up??blood pressures and blood pressure regimen. She was also started on insulin regimen of??detemir 8 units 11-12??short acting. She was also having pain with swallowing??and upper GI pain so GI recommended??Flonase twice a day, pantoprazole, metoclopramide??she will be discharged with. Please follow-up with abdominal pain. Future Appointments Sunday 9:00 AM EST ?? With: Billy Cooper DO Where: [facility] [address] [place] [id number]- Sunday 12:45 PM EST ?? With: Robin CARLSON, Jared Walters Where: [facility] [address] [place] [phone]- Hospital Course Patient is a 31-year-old female with a past history of hypertension, type 2 diabetes, diabetic neuropathy, CKD, nonischemic cardiomyopathy HFrEF 40 to 45% on echo done 12/22, mild mitral regurgitation,mild tricuspid regurgitation, ASD, asthma, legal blindness, and depression who initially presented with chest pain and was admitted for ACS work-up which was negative. Hospital course was complicated by CHF management and ongoing nausea and vomiting with an upper GI bleed that resolved. She also had acute kidney injury on CKD that resolved. She had issues tolerating p.o. fluids and medications at 1 point requiring IV medicines to control blood pressure. She was planned for discharge 03/07 around the discharge unit she began to feel lightheaded with a systolic blood pressure in the 80s and 90s on repeat. No chest pain or shortness of breath at that time and was still not tolerating p.o. well. Was suspected that she was volume depleted due to not tolerating p.o. and was fluid resuscitated and her blood pressure regiment was titrated down to good effect. Patient was able to begin eating more and hadstable blood pressures and was deemed ready for discharge.? Objective Assessment and Plan Abdominal pain (improved): Patient is a 31-year-old female with a past history of hypertension, type 2 diabetes, diabetic neuropathy, CKD, nonischemic cardiomyopathy HFrEF 40 to 45% on echo done 12/22, mild mitral regurgitation,mild tricuspid regurgitation, ASD, asthma, legal blindness, and depression who initially presented with chest pain and was admitted for ACS work-up which was negative.?? Hospital course was complicatedby CHF management and ongoing nausea and vomiting with an upper GI bleed that resolved.?? She also had acute kidney injury on CKD that resolved.?? She had issues tolerating p.o. fluids and medications at??one point requiring IV medicines to control blood pressure.?? She was planned for discharge 03/08 around the discharge unit she began to feel lightheaded with a systolic blood pressure in the 80s and90s on repeat.?? No chest pain or shortness of breath at that time and was still not tolerating p.o.well.?? Was suspected that she was volume depleted due to not tolerating p.o. and was given a 500 LRbolus and LR?? maintenance fluids. ?? Dysphagia (improved) Nausea/vomiting Poor PO intake Abdominal pain Dysphagia with liquids and solids. Currently on cardiac diet, tolerating??solid foods.??GI consulted, says may be secondary to post nasal drip vs gastroparesis. Barium swallow was WNL. ?? Plan: - Flonase BID - Viscous lidocaine - magic mouth wash - Scopolamine patch -Continue PPI once daily - outpatient endoscopy per GI - 5 oxycodone for 3 days for pain ?? Hypotension Hx of Severe hypertension HTN In the setting of poor PO intake (including meds) from severe N/V and abdominal pain. Ability to tolerate PO meds has improved with improved nausea/emesis. BPs in 130s/70s Systolics in the 80-90 when ready to discharge. Decreased coreg and nifedipine doses with improvements in BP. ?? Plan: - continue carvedilol 12.5 bid - continue nifedipine 30 daily - discontinue amlodipine 5 mg - discontinue hydralazine 50 tid - discontinue lisinopril 10 mg ?? MYNOR on??CKD - resolved Hyponatremia???mild Baseline Cr appears to be 3-4, last Cr was??3.7 down??from 4.5 03/03/22 Per nephrology, MYNOR likely due to decreased renal perfusion with heart failure, poor p.o. intake, and CT contrast injury ?? Plan: - follow up with renal outpatient ?? SOB (shortness of breath) (R06.02): . Hypoxia (R09.02): . Heart failure (I50.9): . Pulmonary edema (J81.1): . Bilateral pleural effusion (J90): . Pericardial effusion (I31.3): . Most likely in the setting of an acute on chronic heart failure exacerbation.??D/c diuretics 2/2 AKIlikely related to hypovolemia,??SOB resolving. ? Plan: -Continue Coreg - O2 with activity - follow up with renal ? Chest pain (R07.9) - resolved Currently not having any chest pain; work up so far has been negative. Increasing trops likely related to worsening renal function Pain currently is more MSK/GI related over lower ribs/upper abdomen. ?? QT prolongation (R94.31): . Last QTC was 507, slightly prolonged but safe to continue antiemetics.? Vital Signs?? Temperature: 98.2 DegF (03/10/22 10:58:00) Temperature Route: Oral (03/10/22 10:58:00) Pulse Rate:??91 bpm??High (03/10/22 10:58:00) Respiratory Rate: 18 br/min (03/10/22 11:33:00) Systolic Blood Pressure:??164 mm Hg??High (03/10/22 10:58:00) Diastolic Blood Pressure:??91 mm Hg??High (03/10/22 10:58:00) Blood pressure sites: Arm, right (03/10/22 10:58:00) Mean Arterial Pressure: 115 mm Hg (03/10/22 10:58:00) Pulse Pressure: 73 mm Hg (03/10/22 10:58:00) Oxygen Saturation: 100 % (03/10/22 10:58:00) Mode of Delivery (Oxygen): Room air (03/10/22 10:58:00) Early Warning Score: 3 (03/10/22 12:19:01) ? Intake/Output? 02/26 19:02 03/10 07:00 03/09 07:00 03/08 07:00 03/07 07:00 ?? 03/10 12:50 03/10 12:50 03/10 06:59 03/09 06:59 03/08 06:59 Intake ?79729 ?118 ?120 ? 2445 ? 1700 Output ?15419 ?0 ? 1100 ?600 ? 1200 Net Total ?-1417 ?118 ? -980 ? 1845 ?500 ? Urine Count ?5 ?0 ?0 ?2 ?0 Emesis Count ?825 ?0 ?0 ?0 ?0 ? . Physical Exam Recent Vital Signs Temperature: 97.8 DegF (03/10/22 05:00:00) Pulse Rate: 81 bpm (03/10/22 05:00:00) Respiratory Rate: 18 br/min (03/10/22 05:34:00) Systolic Blood Pressure:??144 mm Hg??High (03/10/22 05:00:00) Diastolic Blood Pressure:??85 mm Hg??High (03/10/22 05:00:00) Oxygen Saturation: 99 % (03/10/22 05:00:00)? General Appearance: The patient is in NAD. Cardiovascular: RRR S1 and S2 heard with no M/R/G. Respiratory: ??Breath sounds clear to auscultation bilaterally. No wheezing. Good air movement throughout both lungs. GI: Soft. mild diffuse tenderness reported MS: ??No edema or erythema in the lower extremities. Neuro: ??No slurred speech. ??Patient seen moving their upper and lower extremities independently. Consultants Seen by Dr. Saravia with Renal Seen by Dr. Armstrong with GI Seen by Dr. Keenan with Cardiology Pending Results Add On Lab Order ordered on 03/08/2022 Basic Metabolic Panel ordered on 03/05/2022 COVID-19 (2019 Novel Coronavirus) PCR ordered on 03/09/2022 Osmolality Urine ordered on 03/08/2022 Sodium Urine ordered on 03/08/2022 Patient Education Titles Uncertain Causes of Chest Pain?? Noncardiac Chest Pain?? Follow-Up Appointments Added Follow Up ?Time Frame ?Comments Abdon Beard MD?3-5 day: call to discuss follow up visit Patient Instructions You were admitted for chest pain, which workup revealed was likely to be musculoskeletal in nature.You also had nausea and some vomiting that initially had blood in it, so you were seen by GI and start on an antacid. Your stay was complicated by painful swallowing, and continue nausea/vomiting,??which prevented you from eating and taking oral medications. We had to give topical and IV medicines to help control your blood pressure. We??also had to keep you hydrated with IV fluids.??A study to look at your esophagus called a barium swallow was not revealing. You were planned for discharge on 03/07 but began to have low blood pressures and were given IV fluids and your blood pressure regimen was decreased. You were able to tolerate eating and drinking and are safe to be discharged. ?? You will have follow up arranged by GI and Renal; they will reach out to schedule an appointment. Ifyou do not hear from them within a few days, please contact:?? You will be seen by Dr. Kelly with cardiology regarding your heart failure. This appointment is scheduled for 04/24 at 12:45 PM. If you need to change this??please call. You will be seen by Dr. Correa with Gastroenterology on 04/17. If you need to change this please call. Please follow up with your PCP in 2-3 days. ?? You are being discharged on home oxygen to use with activity, this will be arranged to be sent to your home. You do not need it when laying in bed. ?? We recommend that you continue using your insulin for your diabetes to ensure it remains well controlled. ?? Medication changes are as follows: STOPPED Metoprolol, Lasix, hydralazine, lisinopril, amlodipine STARTED Torsemide 20mg, Flonase, Pantoprazole?? DECREASED Carvedilol to 12.5??twice a day??and Nifedipine to 30 daily Results Discharge Labs BLOOD BANK Blood Type A Positive ()?? 03/01/2022 02:45 Antibody Screen Negative ()?? 03/01/2022 02:45 ?? BLOOD COUNT & DIFF WBC 5.5 k/mm3 ()?? 03/09/2022 00:23 RBC 2.70 m/mm3 (Low)?? 03/09/2022 00:23 Hgb 7.7 Gm/dL (Low)?? 03/09/2022 00:23 Hct 22.9 % (Low)?? 03/09/2022 00:23 MCV 84.8 femtoliters ()?? 03/09/2022 00:23 MCH 28.5 pg ()?? 03/09/2022 00:23 MCHC 33.6 g/dL ()?? 03/09/2022 00:23 Platelet Count 125 k/mm3 (Low)?? 03/09/2022 00:23 RDW-SD 47.4 femtoliters (High)?? 03/09/2022 00:23 MPV 14.0 femtoliters (High)?? 03/09/2022 00:23 Nucleated RBC (Automated) 0.0 #/100 WBC'S ()?? 03/09/2022 00:23 Abs. NRBC 0.0 k/mm3 ()?? 03/09/2022 00:23 Abs. Neut 3.4 k/mm3 ()?? 02/26/2022 13:23 Abs. Lymph 0.9 k/mm3 ()?? 02/26/2022 13:23 Abs. [place] 0.4 k/mm3 ()?? 02/26/2022 13:23 Abs. Eo 0.1 k/mm3 ()?? 02/26/2022 13:23 Abs. Baso 0.0 k/mm3 ()?? 02/26/2022 13:23 Neut % 68.9 % ()?? 02/26/2022 13:23 Lymph % 18.7 % ()?? 02/26/2022 13:23 [place] % 9.1 % ()?? 02/26/2022 13:23 Eos % 2.5 % ()?? 02/26/2022 13:23 Baso % 0.6 % ()?? 02/26/2022 13:23 Imm Gran 0.2 % ()?? 02/26/2022 13:23 Abs. Imm Gran 0.0 k/mm3 ()?? 02/26/2022 13:23 ?? CARDIAC Nt-Probnp 70047 pg/mL (High)?? 02/26/2022 13:23 High Sensitivity Troponin (HSTnT) 129 ng/L (Critical)?? 03/10/2022 00:12 ?? CHEM GENERAL Sodium 130 mmol/L (Low)?? 03/09/2022 00:23 Potassium 4.5 mmol/L ()?? 03/09/2022 00:23 Chloride 100 mmol/L ()?? 03/09/2022 00:23 Bicarbonate Level 21 mmol/L (Low)?? 03/09/2022 00:23 Anion Gap 9 ()?? 03/09/2022 00:23 Glucose Level 101 mg/dL (High)?? 03/09/2022 00:23 Glucose, POC 267 mg/dL (High)?? 03/10/2022 12:01 BUN 32 mg/dL (High)?? 03/09/2022 00:23 Creatinine-Blood 3.8 mg/dL (High)?? 03/09/2022 00:23 Estimated GFR Creatinine 15 ML/MIN/1.73 M2 ()?? 03/09/2022 00:23 Osmolality 275 mOs/kg (Low)?? 03/08/2022 00:41 Calcium 8.1 mg/dL (Low)?? 03/09/2022 00:23 Phosphorus 4.4 mg/dL ()?? 03/09/2022 00:23 Magnesium 1.8 mg/dL ()?? 03/09/2022 00:23 Protein, Total 5.3 Gm/dL (Low)?? 03/04/2022 08:28 Albumin 2.7 Gm/dL (Low)?? 03/04/2022 08:28 AG Ratio 1.0 ()?? 03/04/2022 08:28 Alkaline Phosphatase 71 units/L ()?? 03/04/2022 08:28 Lipase 17 units/L ()?? 03/02/2022 17:20 AST (SGOT) 9 units/L ()?? 03/04/2022 08:28 ALT (SGPT) 7 units/L ()?? 03/04/2022 08:28 Bilirubin, Total 0.7 mg/dL ()?? 03/04/2022 08:28 ?? COAG D-Dimer 5.20 mg/L FEU (High)?? 02/26/2022 14:25 ? ENDOCRINE/TUMOR MARKER Serum Qual NEGATIVE mIU/mL ()?? 02/26/2022 13:23 ? HEME OTHER Hold Lavender Top SPECIMEN DISCARDED AFTER 24 HOURS. ()?? 03/01/2022 02:56 ? UA/URINALYSIS Appear/Color, Urine LIGHT YELLOW ()?? 03/02/2022 19:07 Specific [place], Urine 1.015 ()?? 03/02/2022 19:07 pH, Urine 6.5 ()?? 03/02/2022 19:07 Albumin, Urine 3+ ()?? 03/02/2022 19:07 Glucose, Urine 2+ ()?? 03/02/2022 19:07 Ketones, Urine TRACE ()?? 03/02/2022 19:07 Bilirubin, Urine NEGATIVE ()?? 03/02/2022 19:07 Hemoglobin, Urine NEGATIVE ()?? 03/02/2022 19:07 Nitrite, Urine NEGATIVE ()?? 03/02/2022 19:07 Leukocyte, Urine NEGATIVE ()?? 03/02/2022 19:07 Urobilinogen NORMAL mg/dL ()?? 03/02/2022 19:07 WBC's, Urine NONE SEEN /HPF ()?? 03/02/2022 19:07 RBC's, Urine 1 /HPF ()?? 03/02/2022 19:07 Bacteria MODERATE ()?? 03/02/2022 19:07 Squamous Epith 4 /HPF ()?? 03/02/2022 19:07 Hyaline Cast 4 /LPF ()?? 03/02/2022 19:07 Mucus SLIGHT /LPF ()?? 03/02/2022 19:07 Hold Urine Culture Testing available 48 hours from time of collection. ()?? 03/02/2022 19:07 ?? URINE OTHER Creatinine, Urine Random 94.6 mg/dL ()?? 03/02/2022 19:07 Sodium, Urine Random 52 mmol/L ()?? 03/02/2022 19:07 Urea Nitrogen, Urine Random 338.0 mg/dL ()?? 03/02/2022 19:07 ? VIROLOGY Influenza A PCR NEGATIVE ()?? 02/26/2022 13:36 Influenza B PCR NEGATIVE ()?? 02/26/2022 13:36 RSV PCR NEGATIVE ()?? 02/26/2022 13:36 COVID-19 PCR Specimen Source NASAL ()?? 03/06/2022 12:30 COVID-19 PCR Result NEGATIVE ()?? 03/06/2022 12:30 ?Imaging ?? (02/26/2022 15:13 EST Chest 2 Views Frontal and Lat) IMPRESSION: ?? Findings are consistent with a mild congestive heart failure pattern. [1] ?? (02/26/2022 17:[address] Angio Chest) IMPRESSION:?? 1. No evidence of pulmonary embolism. ?? 2. Moderate right and small left pleural effusions with mild adjacent compressive atelectasis. ?? 3. Small to moderate pericardial effusion. [2] ?? (02/27/2022 17:06 EST Abdomen AP) IMPRESSION:? Normal. ?? [3] ?? (02/28/2022 10:13 EST US Doppler Ext Lower Venous Bilat) ? IMPRESSION:? No sonographic evidence of deep venous thrombosis. ?? (02/28/2022 21:[address] Abdomen and Pelvis W/O Contrast) IMPRESSION:? No new acute findings within the abdomen. ?? Continued decrease in trace right posterior retroperitoneal hematoma, now appearing as trace focal thickening of the right posterior renal fascia, measuring 0.4 cm in thickness. ?? Unchanged moderate right and small moderate left pleural effusions relative to 02/26/2022. ?? Unchanged small pericardial effusion. [4] ?? (03/01/2022 15:29 EST US Retroperitoneum Comp) ?? IMPRESSION:? No hydronephrosis. ?? Mildly echogenic kidneys bilaterally which may be related to medical renal disease. ?? [5] ?? (03/03/2022 11:48 EST Esophagus Barium Swallow) FINDINGS:?? Swallow: Normal oral and pharyngeal phases with no laryngeal penetration or subglottic aspiration. ?? Esophagus: Normal in contour and mucosal appearance. Normal esophageal motility, with prompt transitof liquid barium into the stomach. No hiatal hernia. No spontaneous gastroesophageal reflux was appreciated during the study. A 13 mm barium tablet passed unimpeded into the stomach. No evidence of esophageal web, narrowing or outpouching. No esophageal obstruction. ?? The stomach and proximal duodenum are grossly normal. Contrast promptly empties from the stomach into a nondilated duodenum. No gastric outlet obstruction. ? IMPRESSION:? Unremarkable esophagram with findings as described. [6] ?? Patient discussed with attending physician, Dr. Edwin Cunningham, DO Internal Medicine PGY1 ?? _ 30 minutes spent on discharge Mariann Pineda MD: PERFORM Event Display: Discharge/Transfer Note Hospital Authored Date: [id number] Attending Attestation:??I have seen and evaluated this patient. ??I have discussed the case and its management with the resident and agree with the findings and plan as documented in the resident???s note. Maria C Antoine RN: PERFORM Event Display: Patient Education/Instruction Authored Date: [id number] Inpatient Adult Discharge Instructions [address] [address] Name: SHEREEN TAYLOR : 1990 Visit: 02/26/2022 19:02:00 Current Date: 03/10/2022 14:29 Account: [id number] Inpatient Adult Discharge Instructions We would like [...] and their families. Surveys are administered by [employer] ?? If further treatment with your primary care physician or another doctor is recommended, it is important for you to keep the appointment. Call your primary care physician or return to the Emergency Department immediately if your condition worsens, fails to improve, or new symptoms develop. If you need to find a doctor, you can call [facility] [employer] for a referral at [phone] or toll free at [phone] or log in to [email or web address] ?? You can view and manage your care through the patient portal or by using a health care calos of your choosing. [email or web address] is a website that allows you to securely view your medical information including your hospital discharge summary, office visit summaries, medications and follow-up visits. You can also request appointments, renew medications, and request access to your medical information using a health care calos of your choosing, or just ask a question. You can enroll at [email or web address] or register during your next office visit. You have been discharged from [facility], Patient Care Unit: S3. If you have any questions regarding these instructions after you leave, please call us and we will be happy to assist you. [facility] Your Care Team Attending Physician Edwin CARLSON, Mariann Consulting Providers Sara CARLSON, Nancie Esposito MD, Steve Bautista MD, Manjit Gama Discharging Providers Cleo Cunningham DO Reason for Admission from home reports chest pain x3 days with cough and diff breathing; pt states that she thinks thereis fluid around her lungs and heart and needs to be drained legally blind 12-lead shows right bundle Your Diagnosis Chest pain Pulmonary edema Bilateral pleural effusion Heart failure Hypoxia CKD (chronic kidney disease) Chest pain SOB (shortness of breath) Pericardial effusion Elevated d-dimer QT prolongation Tests Performed Below is a partial list of the tests performed during your hospitalization. You may have had other tests and procedures not included in this list. Please discuss all test results with your provider. Basic Metabolic Panel CBC CBC w/ Differential COMPREHENSIVE METABOLIC PANL COVID-19, RSV, and Flu A/B, Rapid PCR CREATININE, URINE MG/DL D Dimer GLUCOSE POC High??Sensitivity??Troponin T HOLD LAVENDER TUBE Lipase Magnesium Level OSMOLALITY, SERUM Phosphorus Level Serum Qualitative ProBNP SODIUM, URINE MMOL/L Troponin T, High Sensitivity Type and Screen UA W/HOLD FOR CULTURE FOR [facility] ER ONLY Urine Urea Nitrogen CT Abdomen and Pelvis W/O Contrast CT Angio Chest Doppler Ext Lower Venous Bilat (US) KUB US Retroperitoneum Comp XR Chest 2 Views Frontal and Lat XR Esophagus Barium Swallow Primary Care Provider Abdon Beard MD Advance Directive Health Care Proxy on File Yes - Health Care Proxy No qualifying data available. Discharge Vitals Temperature: 98.2 DegF Height: 170 cm Pulse Rate:??91 bpm??High Weight: 80 kg Respiratory Rate: 18 br/min Body Mass Index:??28.06 kg/m2??High Systolic Blood Pressure:??164 mm Hg??High Body surface area: 1.96 Diastolic Blood Pressure:??91 mm Hg??High ?? Oxygen Saturation: 100 % ?? Studies Pending All tests and labs ordered during this hospital stay have been completed unless listed below. Pleasediscuss all pending results with your provider listed above in these instructions. ?? Add On Lab Order Basic Metabolic Panel COVID-19 (2019 Novel Coronavirus) PCR Osmolality Urine (Urine Osmolality) Sodium Urine (Urine Sodium) What to do next Instructions From Your Doctor You were admitted for chest pain, which workup revealed was likely to be musculoskeletal in nature.You also had nausea and some vomiting that initially had blood in it, so you were seen by GI and start on an antacid. Your stay was complicated by painful swallowing, and continue nausea/vomiting,??which prevented you from eating and taking oral medications. We had to give topical and IV medicines to help control your blood pressure. We??also had to keep you hydrated with IV fluids.??A study to look at your esophagus called a barium swallow was not revealing. You were planned for discharge on 03/07 but began to have low blood pressures and were given IV fluids and your blood pressure regimen was decreased. You were able to tolerate eating and drinking and are safe to be discharged. ?? You will have follow up arranged by GI and Renal; they will reach out to schedule an appointment. Ifyou do not hear from them within a few days, please contact:?? You will be seen by Dr. Kelly with cardiology regarding your heart failure. This appointment is scheduled for 04/24 at 12:45 PM. If you need to change this??please call. You will be seen by Dr. Correa with Gastroenterology on 04/17. If you need to change this please call. Please follow up with your PCP in 2-3 days. ?? You are being discharged on home oxygen to use with activity, this will be arranged to be sent to your home. You do not need it when laying in bed. ?? We recommend that you continue using your insulin for your diabetes to ensure it remains well controlled. ?? Medication changes are as follows: STOPPED Metoprolol, Lasix, hydralazine, lisinopril, amlodipine STARTED Torsemide 20mg, Flonase, Pantoprazole?? DECREASED Carvedilol to 12.5??twice a day??and Nifedipine to 30 daily Discharge Orders Scheduled Follow-Up Appointments Sunday 9:00 AM EST ?? With: Billy Cooper DO Where: [facility] Gastroenterology [address] [place] [id number]- Sunday 12:45 PM EST ?? With: Robin CARLSON, Jared Walters Where: [facility] Cardiology [address] [place] [id number]- You Need to Schedule the Following Appointments Follow Up with??Chirag CARLSON, Abdon When??Within 3-5 day: call to discuss follow up visit Where: [address] [place] [phone]- Discharge Medications SHEREEN TAYLOR :1990 Visit Date:02/26/2022 Medications: Please continue your medications until treatment is completed or stopped by your provider. Medications not listed below should be discontinued. Discuss any questions related to medications with your provider. What How Much When Instructions Next Dose New Durable Medical Equipment (Pen [place], 31 G x 5 mm BD Ultra Fine III) See instructions Duration: 30 Days Refills: 5 use as directed for Type 2 Diabetes Mellitus ?? Pickup at [facility] 3 New Fluticasone Nasal (Flonase 50 mcg/ inh nasal spray) 1 spray(s) Nares, Both Twice a day Pickup at [facility] 3 as prescribed New Metoclopramide (metoclopramide 5 mg oral tablet) 1 tab(s) Oral Every 6 hours as needed for Nausea & Vomiting Duration: 14 Days Pickup at [place] [address] as prescribed New Ondansetron (ondansetron 4 mg oral tablet) 1 tab(s) Oral Every 8 hours as needed for Nausea & Vomiting Pickup at [place] [address] as prescribed New Pantoprazole (pantoprazole 40 mg oral delayed release tablet) 1 tab(s) Oral Daily Pickup at [place] [address] as prescribed New Scopolamine (scopolamine 1 mg/ 72 hr transdermal film, extended release) 1 Film Topically Every 72 hours Pickup at [place] [address] 03/11?? 6PM Changed Carvedilol (carvedilol 12.5 mg oral tablet) 1 tab(s) Oral Twice a day Pickup at [place] [address] 03/10?? PM Changed Insulin Aspart (NovoLOG FlexPen 100 units/ mL injectable solution) 11-12 UNITS Subcutaneous Injection 3 times a day before meals (NOT TAKING & HASN'T IN MONTHS) ?? Pickup at [place] [address] as prescribed Changed Insulin Detemir (Levemir FlexTouch 100 units/ mL subcutaneous solution) 8 unit(s) Subcutaneous Injection Daily at Bedtime (NOT TAKING & HASN'T IN MONTHS) ?? Pickup at [place] [address] 03/10?? PM Changed NIFEdipine (NIFEdipine 30 mg oral tablet, extended release) 1 tab(s) Oral Daily Duration: 30 Days Pickup at [place] [address] as prescribed Changed Oxycodone (oxyCODONE 5 mg oral tablet) 1 tab(s) Oral Every 6 hours as needed for as needed for pain Duration: 3 Days Pickup at [place] [address] as prescribed Unchanged Aspirin (Aspirin Low Dose 81 mg oral delayed release tablet) 2 tab(s) Oral Daily as prescribed Unchanged Duloxetine (duloxetine 30 mg oral enteric coated capsule) 1 capsule Oral Daily as prescribed Unchanged Rosuvastatin (Crestor 5 mg oral tablet) 1 tab(s) Oral Daily as prescribed Unchanged torsemide (torsemide 20 mg oral tablet) 1 tab(s) Oral Daily Pickup at [place] [address] as prescribed Pharmacy Information [place] [address]: [address], [place] [id number] [phone] ?? What How Much When Why Comments Stop Taking Amlodipine (amLODIPine 5 mg oral tablet) 1 tab(s) Oral Daily Stop Taking Durable Medical Equipment (Alcohol Pads) See instructions Duration: 90 Days use as directed for Type 1 Diabetes Mellitus ?? Stop Taking Durable Medical Equipment (Blood Pressure Monitor) See instructions To test blood pressures 2 x day. Severe HTN in ?? Stop Taking Durable Medical Equipment (Freestyle Lancets) See instructions Duration: 90 Days use as directed for Type 2 Diabetes Mellitus ?? Stop Taking Durable Medical Equipment (Freestyle Test Strips) See instructions Duration: 90 Days use as directed for Type 1 Diabetes Mellitus ?? Stop Taking Durable Medical Equipment (Peak Flow Meter (Adult)) See instructions Use when wheezing or chest tightness. Call for peak flow less than 200. ?? Stop Taking Durable Medical Equipment (Pen [place], 30 G x 8 mm BD Ultra Fine II) See instructions Duration: 90 Days use as directed for Type 2 Diabetes Mellitus ?? Stop Taking Furosemide (furosemide 40 mg oral tablet) 1 tab(s) Oral Daily Stop Taking hydrALAZINE (hydrALAZINE 50 mg oral tablet) 1 tab(s) Oral 3 times a day Stop Taking Lisinopril (lisinopril 10 mg oral tablet) 1 tab(s) Oral Daily Stop Taking Metoprolol (Metoprolol Succinate ER 100 mg oral tablet, extended release) 2 tab(s) Oral Daily (FILLED NEVER PICKED UP & NEVER STARTED THIS NEW DOSE) ?? Stop Taking Metoprolol (Metoprolol Tartrate 25 mg oral tablet) 2 tab(s) Oral Twice a day (SHOULD HAVE STOPPED & STARTED NEW DOSE) ?? Stop Taking Miscellaneous Rx (FREESTYLE LITE GLUCOSE METER) See instructions DM2 (diabetes mellitus, type 2) FOR GLUCOSE MONITORING DURING THE ?? Stop Taking Miscellaneous Rx (FREESTYLE LITE LANCETS) See instructions DM2 (diabetes mellitus, type 2) GLUCOSE MONITORING 4 TIMES A DAY DURING ?? Stop Taking Miscellaneous Rx (FREESTYLE LITE STRIPS) See instructions DM2 (diabetes mellitus, type 2) GLUCOSE MONITORING 4 TIMES PER DAY DURING THE ?? Test Results Below is a partial list of the most recent Laboratory test results done prior to this discharge. You may have had other tests and procedures not included in this list. Please discuss all test results with your provider. Basic Metabolic Panel (03/09/2022) ???Sodium - 130 mmol/L???Potassium - 4.5 mmol/L???Chloride - 100 mmol/L???Bicarbonate Level - 21 mmol/L???Anion Gap - 9???Glucose Level - 101 mg/dL???BUN - 32 mg/dL???Creatinine-Blood - 3.8 mg/dL???Estimated GFR Creatinine - 15 ML/MIN/1.73 M2???Calcium - 8.1 mg/dL CBC (03/09/2022) ???WBC - 5.5 k/mm3???RBC - 2.70 m/mm3???Hgb - 7.7 Gm/dL???Hct - 22.9 %???MCV - 84.8 femtoliters???MCH - 28.5 pg???MCHC - 33.6 g/dL???Platelet Count - 125 k/mm3???RDW-SD - 47.4 femtoliters???MPV - 14.0 femtoliters???Nucleated RBC (Automated) - 0.0 #/100 WBC'S???Abs. NRBC - 0.0 k/mm3 CBC w/ Differential (02/26/2022) ???WBC - 4.9 k/mm3???RBC - 3.06 m/mm3???Hgb - 8.5 Gm/dL???Hct - 26.3 %???MCV - 85.9 femtoliters???MCH - 27.8 pg???MCHC - 32.3 g/dL???Platelet Count - 182 k/mm3???RDW-SD - 48.0 femtoliters???MPV - 11.8 femtoliters???Nucleated RBC (Automated) - 0.0 #/100 WBC'S???Abs. NRBC - 0.0 k/mm3???Abs. Neut - 3.4 k/ mm3???Abs. Lymph - 0.9 k/mm3???Abs. [place] - 0.4 k/mm3???Abs. Eo - 0.1 k/mm3???Abs. Baso - 0.0 k/mm3???Neut % - 68.9 %???Lymph % - 18.7 %???[place] % - 9.1 %???Eos % - 2.5 %???Baso % - 0.6 %???Imm Gran - 0.2 %???Abs. Imm Gran - 0.0 k/mm3 COMPREHENSIVE METABOLIC PANL (03/04/2022) ???Sodium - 136 mmol/L???Potassium - 3.8 mmol/L???Chloride - 104 mmol/L???Bicarbonate Level - 22 mmol/L???Anion Gap - 10???Glucose Level - 109 mg/dL???BUN - 32 mg/dL???Creatinine-Blood - 3.7 mg/dL???Estimated GFR Creatinine - 16 ML/MIN/1.73 M2???Calcium - 7.6 mg/dL???Protein, Total - 5.3 Gm/dL???Albumi n - 2.7 Gm/dL???AG Ratio - 1.0???Alkaline Phosphatase - 71 units/L???AST (SGOT) - 9 units/L???ALT (SGPT) - 7 units/L???Bilirubin, Total - 0.7 mg/dL COVID-19, RSV, and Flu A/B, Rapid PCR (02/26/2022) ???Influenza A PCR - NEGATIVE???Influenza B PCR - NEGATIVE???RSV PCR - NEGATIVE???COVID-19 PCR Specimen Source - NASAL???COVID-19 PCR Result - NEGATIVE CREATININE, URINE MG/DL (03/02/2022) ???Creatinine, Urine Random - 94.6 mg/dL D Dimer (02/26/2022) ???D-Dimer - 5.20 mg/L FEU GLUCOSE POC (03/10/2022) ???Glucose, POC - 267 mg/dL High??Sensitivity??Troponin T (02/26/2022) ???High Sensitivity Troponin (HSTnT) - 112 ng/L HOLD LAVENDER TUBE (03/01/2022) ???Hold Lavender Top - SPECIMEN DISCARDED AFTER 24 HOURS. Lipase (03/02/2022) ???Lipase - 17 units/L Magnesium Level (03/09/2022) ???Magnesium - 1.8 mg/dL OSMOLALITY, SERUM (03/08/2022) ???Osmolality - 275 mOs/kg Phosphorus Level (03/09/2022) ???Phosphorus - 4.4 mg/dL Serum Qualitative (02/26/2022) ??? Serum Qual - NEGATIVE ProBNP (02/26/2022) ???Nt-Probnp - 25648 pg/mL SODIUM, URINE MMOL/L (03/02/2022) ???Sodium, Urine Random - 52 mmol/L Troponin T, High Sensitivity (03/10/2022) ???High Sensitivity Troponin (HSTnT) - 129 ng/L Type and Screen (03/01/2022) ???Blood Type - A Positive???Antibody Screen - Negative UA W/HOLD FOR CULTURE FOR [facility] ER ONLY (03/02/2022) ???Appear/Color, Urine - LIGHT YELLOW???Specific [place], Urine - 1.015???pH, Urine - 6.5???Albumin,Urine - 3+???Glucose, Urine - 2+???Ketones, Urine - TRACE???Bilirubin, Urine - NEGATIVE???Hemoglobin, Urine - NEGATIVE???Nitrite, Urine - NEGATIVE???Leukocyte, Urine - NEGATIVE???Urobilinogen - NORMAL???WBC's, Urine - NONE SEEN???RBC's, Urine - 1 /HPF???Bacteria - MODERATE???Squamous Epith - 4 /HPF???Hyaline Cast - 4 /LPF???Mucus - SLIGHT???Hold Urine Culture - Testing available 48 hours from time ofcollection. Urine Urea Nitrogen (03/02/2022) ???Urea Nitrogen, Urine Random - 338.0 mg/dL Immunizations This Visit Not Given Vaccine Commentsinfluenza virus vaccine, inactivated Patient Refuses Allergies (NKA means No Known Allergies) Zosyn??(angioedema) morphine??(Itching) vancomycin??(Tightness in throat) Problems Active Problems??(15) Asthma?? Blindness of right eye?? Cardiac disease during , antepartum?? Care Coordination [facility]-CP, Hakan Angel, CC ?? CKD (chronic [...] Educational Leaflet Providered with your Discharge Instructions. Noncardiac Chest Pain?? Uncertain Causes of Chest Pain?? Uncertain Causes of Chest Pain?? Noncardiac Chest Pain?? Valuables and Belongings I fully understand and agree that [facility] accepts no responsibility for all my personal [...] patient Date for Pt to Sign Valuables/Belongings: 03/10/22 10:58:00 ?? Other Discharge Information ? Case Management Discharge Plan?? Discharge Plan?? Discharge Agency Information?? Discharge Medical Equipment Companies: [employer] Name of Agency #1: [facility] ?? Agency [employer] #1: intake ?? Service Categories #1: Oxygen Therapy ?? Service Comments #1: Pulmonary Nurse arranging oxygen with [facility]; if any issues or concern with equipment please call them directly. ?? Pulmonary Rehab Status?? Pulmonary Rehab Discharge Status?? Patient Going Home on Oxygen: Yes Portable unit required: Yes Oxygen Sat. Rm. Air: 87 % Oxygen Device used at Home: Nasal cannula Liter flow: 2 LPM Oxygen Use Duration: With activity Respiratory Rate: 18 br/min Discharge Medical Equipment Companies: [employer] Home care instructions: An appointment has been scheduled with a pulmonary nurse. Nurse Communication (Pulmonary Rehab): Someone from [address] [place] [address] will call you for a follow up oxygen evaluation appt in 2-3 weeks. Informational handouts: Oxygen Therapy ? Common Emergency Awareness Tips IS IT [...] are strongly encouraged to quit. Please call [facility] [employer] at [phone] or [phone] ([phone]) or log in to [email or web address] [email or web address] for referrals to smoking cessation programs. ?? The National Suicide Prevention Hotline is available 18/09 if you or someone you know needs to find areason to keep living. By calling 0-866-351-[employer] (1268) you'll be connected to a skilled, trained counselor at a crisis center in your area. INPATIENT DISCHARGE INSTRUCTIONS SIGNATURE SHEREEN WATTS Location:[facility] Registration Date and Time:02/26/2022 19:02 [facility] Primary Care Physician: Chirag CARLSON, [facility], Zia ARLETTE TAYLOREDEN, have received the above patient education materials/instructions and have verbalized understanding. If ambulance or transport services are being used I further acknowledge being given a choice of service. ?? If you need to contact me, please call me at this number: . Patient/Calender Feeder Name: Patient/Calender Feeder Signature: Relationship to Patient: Witness Name/Signature: Date: Maria C Antoine RN: PERFORM Event Display: Patient Education Leaflets Authored Date: [id number] Noncardiac Chest Pain ?? [id number] Noncardiac Chest Pain In most cases, people who come to the emergency room with chest pain don???t have a problem with their heart. Instead, the pain is caused by other conditions. It's important for the healthcare team shelby sure you are not having a life-threatening cause for chest pain such as: ??? Heart attack ??? Blood clot in the lungs ??? Collapsed lung ??? Ruptured esophagus ??? Tearing of the aorta Once these major causes have been ruled out, you may have further evaluation for other causes of chest pain. These may be problems with the lungs, muscles, bones, digestive tract, nerves, or mental health. They include: ??? Inflammation around the lungs (pleurisy) ??? Collapsed lung (pneumothorax) ??? Lung inflammation (pleuritis or pneumonitis) ??? Fluid around the lung (pleural effusion) ??? Lung cancer (rare causeof chest pain) ??? Inflamed cartilage between the ribs (costochondritis) ??? Fibromyalgia ??? Rheumatoid arthritis ??? Chest wall strain ??? Reflux ??? Stomach ulcer ??? Spasms of the esophagus ??? Gall stones ??? Gallbladder inflammation ??? Panic or anxiety attacks ??? Emotional distress Your pain doesn???t seem to be coming from your heart. But sometimes the signs of a serious problemtake more time to appear. Continue to watch for the warning signs listed below. Home care Follow these guidelines when caring for yourself at home: ??? Rest today and don't do any strenuousactivity. ??? Take any prescribed medicine as directed. ?? Follow-up care Follow up with your healthcare provider as advised. ?? Call 911 Call 911 if any of these occur: ??? A change in the type of pain: if it feels different, becomes more severe, lasts longer, or begins to spread into your shoulder, arm, neck, jaw or back ??? Shortnessof breath or increased pain with breathing ??? Weakness, dizziness, or fainting ??? Rapid heart beat??? Crushing sensation in your chest ?? When to seek medical advice Call your healthcare provider right away if any of these occur: ??? Cough with dark colored sputum (phlegm) or blood ??? Fever of 100.4??F (38??C) or higher, or as directed by your healthcare provider??? Swelling, pain or redness in one leg ?? Last Reviewed Date: 2021 ?? [id number] The [employer]. All rights reserved. This information is not intended as a substitute for professional medical care. Always follow your healthcare professional's instructions. ??Maria C Antoine RN: PERFORM Event Display: Patient Education Leaflets Authored Date: [id number] Uncertain Causes of Chest Pain ?? [id number] Uncertain Causes of Chest Pain Chest pain can happen for a number of reasons. Sometimes the cause can't be determined. If your??condition does not seem serious, and your pain does not appear to be coming from your heart, your healthcare provider may recommend watching it closely. Sometimes the signs of a serious problem take more time to appear. Many problems not related to your heart can cause chest pain. These include: ??? Musculoskeletal. Costochondritis is an inflammation of the tissues around the ribs that can occur from trauma or overuse injuries, or a strain of the muscles of the chest wall. ??? Respiratory. Pneumonia, collapsed lung (pneumothorax), or inflammation of the lining of the chest and lungs (pleurisy). ??? Gastrointestinal. Esophageal reflux, heartburn, ulcers, or gallbladder disease. ??? Anxiety and panic disorders ??? Nerve compression and inflammation ??? Rare problems such as aortic aneurysm or aortic dissection (a swelling of the large artery coming out of the heart or a tear in the wall of the artery), or pulmonary embolism (a blood clot in the lungs). Home care After your visit, follow these recommendations: ??? Rest today and avoid strenuous activity. ??? Take any prescribed medicine as directed. ??? Be aware of any recurrent chest pain and notice any changes ?? Follow-up care Follow up with your healthcare provider if you don't start to feel better within 24 hours, or as advised. ?? Call 911 Call 911 if any of these occur: ??? A change in the type of pain: if it feels different, becomes more severe, lasts longer, or begins to spread into your shoulder, arm, neck, jaw or back ??? Shortnessof breath or increased pain with breathing ??? Weakness, dizziness, or fainting ??? Rapid heartbeat ??? Crushing sensation in your chest ??? Coughing up more than a small amount of blood. ?? When to seek medical advice Call your healthcare provider right away if any of the following occur: ??? Cough with dark coloredsputum (phlegm) or small amount of blood ??? Fever of 100.4??F??(38??C) or higher, or as directed byyour healthcare provider ??? Swelling, pain or redness in one leg ?? Last Reviewed Date: 2021 ?? [id number] The i[employer]. All rights reserved. This information is not intended as a substitute for professional medical care. Always follow your healthcare professional's instructions. ??Alice CARLSON, Letha Cheng: PERFORM, MODIFY, MODIFY Event Display: Discharge/Transfer Note Hospital Authored Date: [id number] Patient: ??SHEREEN TAYLOR ? Age:??31 Years?Sex:??Female?:??1990?? Patient Information Discharge Location: Primary Care Physician: Abdon Beard MD Admit Date/Time: 02/26/22 19:02 Discharge Disposition Discharge Disposition: Home: No Services Discharge Diagnosis Bilateral pleural effusion (J90) CKD (chronic kidney disease) (N18.9) Chest pain (R07.9) Elevated d-dimer (R79.89) Heart failure (I50.9) Hypoxia (R09.02) Pericardial effusion (I31.3) Pulmonary edema (J81.1) QT prolongation (R94.31) SOB (shortness of breath) (R06.02) Blindness of right eye Diabetes mellitus type 2 ?? _ Discharge Medications Amlodipine (amLODIPine 5 mg oral tablet)?1?tab(s)?5?Milligram?By [...] 1 Diabetes Mellitus Durable Medical Equipment ([place], 30 G x 8 mm BD Ultra Fine II)?See Instructions?for 90?Days?use as directed for Type 2 Diabetes Mellitus Durable Medical Equipment (Peak Flow Meter (Adult))?See Instructions?Use when wheezing or chest tightness. Call for peak flow less than 200. Durable Medical Equipment (Blood Pressure Monitor)?See Instructions?To test blood pressures 2 x day. Severe HTN in Fluticasone Nasal (Flonase 50 mcg/inh nasal spray)?1?spray(s)?Nares, Both?2 times a day hydrALAZINE (hydrALAZINE 50 mg oral tablet)?1?tab(s)?50?Milligram?By Mouth?3 timesa day Insulin Aspart (NovoLOG FlexPen 100 units/mL injectable solution)?11-12 UNITS?Subcutaneous Injection?3 times a day before meals?(NOT TAKING & HASN'T IN MONTHS) Insulin Detemir (Levemir FlexTouch 100 units/mL subcutaneous solution)?8?unit(s)?Subcutaneous Injection?Daily at bedtime?(NOT TAKING & HASN'T IN MONTHS) Lisinopril (lisinopril 10 mg oral tablet)?10?Milligram?1?tablet?By Mouth?Daily Metoclopramide (metoclopramide 5 mg oral tablet)?1?tab(s)?5?Milligram?By Mouth?Every 6 hours?as needed?Nausea & Vomiting?for 14?Days Miscellaneous Rx (FREESTYLE LITE LANCETS)?See Instructions?GLUCOSE MONITORING 4 TIMES A DAY DURING Miscellaneous Rx (FREESTYLE LITE STRIPS)?See Instructions?GLUCOSE MONITORING 4 TIMES PER DAY DURING THE Miscellaneous Rx (FREESTYLE LITE GLUCOSE METER)?See Instructions?FOR GLUCOSE MONITORING DURINGTHE NIFEdipine (NIFEdipine 60 mg oral tablet, extended release)?60?Milligram?1?tablet?By Mouth?Daily Ondansetron (ondansetron 4 mg oral tablet)?1?tab(s)?4?Milligram?By Mouth?Every 8 hours?as needed?Nausea & Vomiting Oxycodone (oxyCODONE 5 mg oral tablet)?5?Milligram?1?tablet?By Mouth?Every 6 hours?as needed?as needed for pain Pantoprazole (pantoprazole 40 mg oral delayed release tablet)?1?tab(s)?40?Milligram?By Mouth?Daily Rosuvastatin (Crestor 5 mg oral tablet)?1?tab(s)?5?Milligram?By Mouth?Daily torsemide (torsemide 20 mg oral tablet)?1?tab(s)?20?Milligram?By Mouth?Daily ? Medications Started Insulin, Pantoprazole, Flonase, Torsemide, Zofran, Metoclopramide Medications Discontinued Metoprolol, Lasix PCP Follow-Up/Heads-Up Please personal financial counselor on importance of managing diabetes and taking the appropriate medications. Please follow up GI, Renal, and Cardiology appointment notes. Please consider ENT follow up if Natalis still endorses dizziness after nausea/vomiting improves. Future Appointments Sunday 12:45 PM EST ?? With: Robin CARLSON, Jared Walters Where: [facility] [address] [place] [address] [place] [address]- Hospital Course ??Shereen is a 31-year-old female with PMH including HTN, DM, diabetic nephropathy, CKD, nonischemiccardiomyopathy, HFrEF (EF 40 to 45% on echo done 11/2021), mild mitral regurgitation, mild tricuspidregurgitation, ASD, asthma, legal blindness, history of preeclampsia resulting in demise requiring C- section (12/09/2021), and depression, who presented initially with chest pain,?? and admitted to medicine on 02/26 for work up, which has been negative for any cardiac causes.?Hospital course has been complicated by CHF management,??ongoing N/V, upper GIB (now resolved)??and MYNOR on CKD (now reso lved). At one point she was??not tolerating oral foods and medications and requiring IVF as well as topical medications and IV medications to control her blood pressure, which is??now resolved. It was determined by the general medical team that she could be safely discharged home with close PCP, GI, Renal, and Cardiology follow up. ?? On discharge, recommendations are as follows: ?? Abdominal pain (improved): New onset upper abdominal pain with associated anorexia. Unclear etiology with reassuring workup so far. Possibly post nasal drip vs gastroparesis, started on Flonase per GI recommendations. Due to history of uncontrolled DM with prior TMA and diabetic nephropathy, this can be in the setting of gastroparesis. ?? Plan: ?? - Continue pantoprazole and Flonase daily per GI - Continue home PRN pain medications - Follow up with GI to be arranged with potential endoscopy. ?? Dysphagia (improved) Barium swallow WNL. ?? Plan: - As above ?? Nausea, vomiting Mild upper GI bleeding - resolved Initial labs unremarkable??for abdominal pain concerns;??she??continues with??right-sided abdominal??discomfort and??nausea, vomiting now resolved. KUB unremarkable.??Patient able to tolerate cardiac diet without emesis. Managing nausea with scopolamine patch and Zofran.?EKG??showed??QTC of 507. ? Recommendations: -Continue as needed Zofran and Metoclopramide??for nausea/vomiting -Continue PPI once daily -May require??endoscopy in future, GI to arrange outpatient follow up. ? MYNOR on??CKD - resolved Most??likely intrinsic etiology per urine??studies with multiple possible causes: PPI induced, HTN and DM. Renal US??revealed echogenic kidneys. ?? Plan: -Monitor renal function as needed, avoid nephrotoxic medication -Restart torsemide now that Cr is at baseline -Follow up with Renal to be arranged ?? SOB (shortness of breath) (R06.02): . Hypoxia (R09.02): . Heart failure (I50.9): . Pulmonary edema (J81.1): . Bilateral pleural effusion (J90): . Pericardial effusion (I31.3): . Most likely in the setting of an acute on chronic heart failure exacerbation.??Was euvolemic throughout her stay ?? Recommendations: -Resume home torsemide, Coreg -2L NC for activity per pulm rehab recs -F/u with cardiology for 04/24/22 ?? QT prolongation (R94.31): . Last QTC was 507 ?? Plan: -Recheck EKG as needed based on medication regimen. ?? Chest pain (R07.9) - resolved Currently not having any chest pain; work up so far has been negative. Pain currently is more MSK/GIrelated over lower ribs/upper abdomen. ?? Recommendations: -Continue aspirin and rosuvastatin (home meds) ?? Chronic medical conditions: HTN:??Continue home nifedipine and Coreg. DM:??Continue home insulin regimen Asthma:??Nebs as needed. Anxiety/depression:??Continue Cymbalta.?? Objective Assessment and Plan As above ?? Measurements?? Height: 170 cm (03/07/22) Weight: 80 kg (03/07/22) Dry Weight: 88 kg (02/26/22) Body Mass Index:??28.06 kg/m2??High (03/01/22) ? Vital Signs?? Temperature: 99.6 DegF (03/07/22 07:54:00) Temperature Route: Oral (03/07/22 07:54:00) Pulse Rate:??96 bpm??High (03/07/22 09:57:00) Respiratory Rate: 17 br/min (03/07/22 10:08:00) Systolic Blood Pressure:??143 mm Hg??High (03/07/22 09:57:00) Systolic Blood Pressure:??143 mm Hg??High (03/07/22 09:57:00) Diastolic Blood Pressure:??91 mm Hg??High (03/07/22 09:57:00) Diastolic Blood Pressure:??91 mm Hg??High (03/07/22 09:57:00) Blood pressure sites: Arm, right (03/07/22 07:54:00) Mean Arterial Pressure: 108 mm Hg (03/07/22 07:54:00) Pulse Pressure: 52 mm Hg (03/07/22 07:54:00) Oxygen Saturation: 95 % (03/07/22 07:54:00) Liters per Minute: 2.5 L/min (03/07/22 07:54:00) Mode of Delivery (Oxygen): Nasal cannula (03/07/22 07:54:00) Early Warning Score: 6 (03/07/22 10:09:06) ? . Physical Exam Constitutional: Alert, in no distress. Mental Status: Oriented to person, place and time. HEENT: Patient legally blind, MMM, no oral lesions Neck: Supple, Full range of motion Respiratory: Mildly diminished breath sounds over lung bases Cardiovascular: S1 S2 regular. 2/6 holosystolic murmur over LLSB Gastrointestinal: Abdomen soft, non-distended, nontender to palpation Neurologic: Cranial nerves II-XII grossly intact. Skin: No rashes or lesions. No petechiae or purpura.?? Musculoskeletal: no cyanosis, pulses present and equal bilaterally. No edema ? Consultants Seen by Dr. Saravia with Renal Seen by Dr. Armstrong with GI Seen by Dr. Keenan with Cardiology Patient Education Titles Uncertain Causes of Chest Pain?? Noncardiac Chest Pain?? Follow-Up Appointments Added Follow Up ?Time Frame ?Comments Chirag CARLSON, Abdon?3-5 day: call to discuss follow up visit Patient Instructions You were admitted for chest pain, which workup revealed was likely to be musculoskeletal in nature.You also had nausea and some vomiting that initially had blood in it, so you were seen by GI and start on an antacid. Your stay was complicated by painful swallowing, and continue nausea/vomiting,??which prevented you from eating and taking oral medications. We had to give topical and IV medicines to help control your blood pressure. We??also had to keep you hydrated with IV fluids.??A study to look at yur esophagus called a barium swallow was not revealing. After not eating for a while, you had better tolerance of food and your oral medications, so it was determined you would be safe to go home. ?? You will have follow up arranged by GI and Renal; they will reach out to schedule an appointment. Ifyou do not hear from them within a few days, please contact:?? You will be seen by Dr. Kelly with cardiology regarding your heart failure. This appointment is scheduled for 04/24 at 12:45 PM. If you need to change this??please call: ?? Please follow up with your PCP in 2-3 days. ?? You are being discharged on home oxygen to use with activity, this will be arranged to be sent to your home. You do not need it when laying in bed. ?? We recommend that you continue using your insulin for your diabetes to ensure it remains well controlled. ?? Medication changes are as follows: STOPPED Lasix 40mg STARTED Torsemide 20mg, Flonase, Pantoprazole CHANGED Metoprolol to 100mg twice daily Results Discharge Labs BLOOD BANK Blood Type A Positive ()?? 03/01/2022 02:45 Antibody Screen Negative ()?? 03/01/2022 02:45 ?? BLOOD COUNT & DIFF WBC 4.3 k/mm3 ()?? 03/06/2022 15:10 RBC 2.92 m/mm3 (Low)?? 03/06/2022 15:10 Hgb 8.1 Gm/dL (Low)?? 03/06/2022 15:10 Hct 25.0 % (Low)?? 03/06/2022 15:10 MCV 85.6 femtoliters ()?? 03/06/2022 15:10 MCH 27.7 pg ()?? 03/06/2022 15:10 MCHC 32.4 g/dL (Low)?? 03/06/2022 15:10 Platelet Count 145 k/mm3 (Low)?? 03/06/2022 15:10 RDW-SD 49.6 femtoliters (High)?? 03/06/2022 15:10 MPV 13.6 femtoliters (High)?? 03/06/2022 15:10 Nucleated RBC (Automated) 0.0 #/100 WBC'S ()?? 03/06/2022 15:10 Abs. NRBC 0.0 k/mm3 ()?? 03/06/2022 15:10 Abs. Neut 3.4 k/mm3 ()?? 02/26/2022 13:23 Abs. Lymph 0.9 k/mm3 ()?? 02/26/2022 13:23 Abs. [place] 0.4 k/mm3 ()?? 02/26/2022 13:23 Abs. Eo 0.1 k/mm3 ()?? 02/26/2022 13:23 Abs. Baso 0.0 k/mm3 ()?? 02/26/2022 13:23 Neut % 68.9 % ()?? 02/26/2022 13:23 Lymph % 18.7 % ()?? 02/26/2022 13:23 [place] % 9.1 % ()?? 02/26/2022 13:23 Eos % 2.5 % ()?? 02/26/2022 13:23 Baso % 0.6 % ()?? 02/26/2022 13:23 Imm Gran 0.2 % ()?? 02/26/2022 13:23 Abs. Imm Gran 0.0 k/mm3 ()?? 02/26/2022 13:23 ?? CARDIAC Nt-Probnp 74056 pg/mL (High)?? 02/26/2022 13:23 High Sensitivity Troponin (HSTnT) 115 ng/L (Critical)?? 02/26/2022 19:42 ?? CHEM GENERAL Sodium 131 mmol/L (Low)?? 03/07/2022 05:01 Potassium 4.3 mmol/L ()?? 03/07/2022 05:01 Chloride 101 mmol/L ()?? 03/07/2022 05:01 Bicarbonate Level 19 mmol/L (Low)?? 03/07/2022 05:01 Anion Gap 11 ()?? 03/07/2022 05:01 Glucose Level 157 mg/dL (High)?? 03/07/2022 05:01 Glucose, POC 156 mg/dL (High)?? 03/07/2022 07:50 BUN 25 mg/dL (High)?? 03/07/2022 05:01 Creatinine-Blood 3.4 mg/dL (High)?? 03/07/2022 05:01 Estimated GFR Creatinine 18 ML/MIN/1.73 M2 ()?? 03/07/2022 05:01 Calcium 8.2 mg/dL (Low)?? 03/07/2022 05:01 Magnesium 1.8 mg/dL ()?? 03/07/2022 05:01 Protein, Total 5.3 Gm/dL (Low)?? 03/04/2022 08:28 Albumin 2.7 Gm/dL (Low)?? 03/04/2022 08:28 AG Ratio 1.0 ()?? 03/04/2022 08:28 Alkaline Phosphatase 71 units/L ()?? 03/04/2022 08:28 Lipase 17 units/L ()?? 03/02/2022 17:20 AST (SGOT) 9 units/L ()?? 03/04/2022 08:28 ALT (SGPT) 7 units/L ()?? 03/04/2022 08:28 Bilirubin, Total 0.7 mg/dL ()?? 03/04/2022 08:28 ?? COAG D-Dimer 5.20 mg/L FEU (High)?? 02/26/2022 14:25 ? ENDOCRINE/TUMOR MARKER Serum Qual NEGATIVE mIU/mL ()?? 02/26/2022 13:23 ? HEME OTHER Hold Lavender Top SPECIMEN DISCARDED AFTER 24 HOURS. ()?? 03/01/2022 02:56 ? UA/URINALYSIS Appear/Color, Urine LIGHT YELLOW ()?? 03/02/2022 19:07 Specific [place], Urine 1.015 ()?? 03/02/2022 19:07 pH, Urine 6.5 ()?? 03/02/2022 19:07 Albumin, Urine 3+ ()?? 03/02/2022 19:07 Glucose, Urine 2+ ()?? 03/02/2022 19:07 Ketones, Urine TRACE ()?? 03/02/2022 19:07 Bilirubin, Urine NEGATIVE ()?? 03/02/2022 19:07 Hemoglobin, Urine NEGATIVE ()?? 03/02/2022 19:07 Nitrite, Urine NEGATIVE ()?? 03/02/2022 19:07 Leukocyte, Urine NEGATIVE ()?? 03/02/2022 19:07 Urobilinogen NORMAL mg/dL ()?? 03/02/2022 19:07 WBC's, Urine NONE SEEN /HPF ()?? 03/02/2022 19:07 RBC's, Urine 1 /HPF ()?? 03/02/2022 19:07 Bacteria MODERATE ()?? 03/02/2022 19:07 Squamous Epith 4 /HPF ()?? 03/02/2022 19:07 Hyaline Cast 4 /LPF ()?? 03/02/2022 19:07 Mucus SLIGHT /LPF ()?? 03/02/2022 19:07 Hold Urine Culture Testing available 48 hours from time of collection. ()?? 03/02/2022 19:07 ?? URINE OTHER Creatinine, Urine Random 94.6 mg/dL ()?? 03/02/2022 19:07 Sodium, Urine Random 52 mmol/L ()?? 03/02/2022 19:07 Urea Nitrogen, Urine Random 338.0 mg/dL ()?? 03/02/2022 19:07 ? VIROLOGY Influenza A PCR NEGATIVE ()?? 02/26/2022 13:36 Influenza B PCR NEGATIVE ()?? 02/26/2022 13:36 RSV PCR NEGATIVE ()?? 02/26/2022 13:36 COVID-19 PCR Specimen Source NASAL ()?? 03/06/2022 12:30 COVID-19 PCR Result NEGATIVE ()?? 03/06/2022 12:30 ? Microbiology ?? COVID-19, RSV, and Flu A/B, Rapid PCR?? Completed?? Source: Nasal Body Site: Nose Collected Dt/Tm: 02/26/2022 13:00 Last Updated Dt/Tm: 02/26/2022 15:02 COVID-19 (2019 Novel Coronavirus) PCR?? Completed?? Source: Nasal Body Site: Nose Collected Dt/Tm: 02/27/2022 13:57 Last Updated Dt/Tm: 03/01/2022 04:05 COVID-19 (2019 Novel Coronavirus) PCR?? Completed?? Source: Nasal Body Site: Nose Collected Dt/Tm: 03/02/2022 14:45 Last Updated Dt/Tm: 03/02/2022 23:35 COVID-19 (2019 Novel Coronavirus) PCR?? Completed?? Source: Nasal Body Site: Nose Collected Dt/Tm: 03/06/2022 12:50 Last Updated Dt/Tm: 03/06/2022 23:46 ?Imaging ?? (02/26/2022 15:13 EST Chest 2 Views Frontal and Lat) IMPRESSION: ?? Findings are consistent with a mild congestive heart failure pattern. [1] ?? (02/26/2022 17:[address] Angio Chest) IMPRESSION:?? 1. No evidence of pulmonary embolism. ?? 2. Moderate right and small left pleural effusions with mild adjacent compressive atelectasis. ?? 3. Small to moderate pericardial effusion. [2] ?? (02/27/2022 17:06 EST Abdomen AP) IMPRESSION:? Normal. ?? [3] (02/28/2022 10:13 EST US Doppler Ext Lower Venous Bilat) ? IMPRESSION:? No sonographic evidence of deep venous thrombosis. ?? (02/28/2022 21:[address] Abdomen and Pelvis W/O Contrast) IMPRESSION:? No new acute findings within the abdomen. ?? Continued decrease in trace right posterior retroperitoneal hematoma, now appearing as trace focal thickening of the right posterior renal fascia, measuring 0.4 cm in thickness. ?? Unchanged moderate right and small moderate left pleural effusions relative to 02/26/2022. ?? Unchanged small pericardial effusion. [4] ?? (03/01/2022 15:29 EST US Retroperitoneum Comp) ?? IMPRESSION:? No hydronephrosis. ?? Mildly echogenic kidneys bilaterally which may be related to medical renal disease. ?? [5] ?? (03/03/2022 11:48 EST Esophagus Barium Swallow) FINDINGS:?? Swallow: Normal oral and pharyngeal phases with no laryngeal penetration or subglottic aspiration. ?? Esophagus: Normal in contour and mucosal appearance. Normal esophageal motility, with prompt transitof liquid barium into the stomach. No hiatal hernia. No spontaneous gastroesophageal reflux was appreciated during the study. A 13 mm barium tablet passed unimpeded into the stomach. No evidence of esophageal web, narrowing or outpouching. No esophageal obstruction. ?? The stomach and proximal duodenum are grossly normal. Contrast promptly empties from the stomach into a nondilated duodenum. No gastric outlet obstruction. ? IMPRESSION:? Unremarkable esophagram with findings as described. [6] 40 minutes spent on discharge ?? Patient care discussed with Dr. Womack ?? Thank you for allowing me to partake in your care. Letha Jenkins MD PGY-1 Internal Medicine/Pediatrics ? [1]??Chest 2 Views Frontal and Lat; Tyron CARLSON, Kareem Burgess 02/26/2022 15:13 EST [2]??CT Angio Chest; Emy Campbell MD 02/26/2022 17:13 EST [3]??Abdomen AP; Preet Gonzales MD 02/27/2022 17:06 EST [4]??CT Abdomen and Pelvis W/O Contrast; Mihai Allen MD 02/28/2022 21:26 EST [5]??US Retroperitoneum Comp; Michele Goncalves MD 03/01/2022 15:29 EST [6]??Esophagus Barium Swallow; Adiel CARLSON, Joshua Ashraf 03/03/2022 11:48 EST Mihai Womack MD: PERFORM Event Display: Discharge/Transfer Note Hospital Authored Date: Attending Attestation:??I saw and examined the patient with the resident team and reviewed the charton the day of service. ??I have discussed the case and its management??with the resident as documented in the resident note on the day of service.??I agree with the resident's note and plan as documented. Pt looked comfortable bhis am, then went to discharge unit.?? There, she was feeling lightheaded andnad sbp 80's on initial eval and 90 systolic on repeat.?? She has no cp or sob.?? She does feel nauseated still and doesn't feel she can tolerate very much po.?? On exam, appears comfortable.?? Heart rrr s1s2 lungs clear abd soft, mild diffuse tenderness to deep palpation.?? No peritoneal signs.?? Normal bowel sounds.??no distention. extr warm, well perfused.?? neuro alert, speech clear, no facial asymmetry.?? 5/5 symmetrical strength.?? no asterixis.?? Suspect she may still be volume depleted as she is not tolerating po.?? She also had not been takingher antihypertensive meds, and now has been receiving them regularly.?? Her bp's have been quite labile, likely some degree of autonomic dysfunction in setting of chronic diabetes.?? Benign abd exam.??No symptoms to suggest acs or dysrhythmias.?? --ivf bolus with gentle maintenance ivf while she is unable to take po --decrease nifedipine and decrease carvedilol doses with hold parameters.?? Will potentially need totitrate --cancel discharge --supportive care with ivf and antiemetics. Alice CARLSON, Letha Cheng: PERFORM Event Display: Patient Education Leaflets Authored Date: [id number] Uncertain Causes of Chest Pain ?? [id number] Uncertain Causes of Chest Pain Chest pain can happen for a number of reasons. Sometimes the cause can't be determined. If your??condition does not seem serious, and your pain does not appear to be coming from your heart, your healthcare provider may recommend watching it closely. Sometimes the signs of a serious problem take more time to appear. Many problems not related to your heart can cause chest pain. These include: ??? Musculoskeletal. Costochondritis is an inflammation of the tissues around the ribs that can occur from trauma or overuse injuries, or a strain of the muscles of the chest wall. ??? Respiratory. Pneumonia, collapsed lung (pneumothorax), or inflammation of the lining of the chest and lungs (pleurisy). ??? Gastrointestinal. Esophageal reflux, heartburn, ulcers, or gallbladder disease. ??? Anxiety and panic disorders ??? Nerve compression and inflammation ??? Rare problems such as aortic aneurysm or aortic dissection (a swelling of the large artery coming out of the heart or a tear in the wall of the artery), or pulmonary embolism (a blood clot in the lungs). Home care After your visit, follow these recommendations: ??? Rest today and avoid strenuous activity. ??? Take any prescribed medicine as directed. ??? Be aware of any recurrent chest pain and notice any changes ?? Follow-up care Follow up with your healthcare provider if you don't start to feel better within 24 hours, or as advised. ?? Call 911 Call 911 if any of these occur: ??? A change in the type of pain: if it feels different, becomes more severe, lasts longer, or begins to spread into your shoulder, arm, neck, jaw or back ??? Shortnessof breath or increased pain with breathing ??? Weakness, dizziness, or fainting ??? Rapid heartbeat ??? Crushing sensation in your chest ??? Coughing up more than a small amount of blood. ?? When to seek medical advice Call your healthcare provider right away if any of the following occur: ??? Cough with dark coloredsputum (phlegm) or small amount of blood ??? Fever of 100.4??F??(38??C) or higher, or as directed byyour healthcare provider ??? Swelling, pain or redness in one leg ?? Last Reviewed Date: 2021 ?? [id number] The [employer]. All rights reserved. This information is not intended as a substitute for professional medical care. Always follow your healthcare professional's instructions. ?? Event Display: Cardiac Rhythm Strips Authored Date: [id number] [facility] [place] S: Kareem Dos Santos MD: VERIFY Event Display: Result: Authored Date: [id number] AP and lateral chest x-ray dated February 26, 2022. Comparison films are from February 13, 2022. HISTORY: Shortness of breath. FINDINGS: The cardiac silhouette is at the upper limits of normal for size and unchanged. Mild pulmonary vascular prominence and interstitial thickening are demonstrated. No airspace consolidation or pleural effusion is noted. Visualized osseous structures are unremarkable. IMPRESSION: Findings are consistent with a mild congestive heart failure pattern. Examination 10048. Thank you for allowing me to participate in the care of this patient. WSN: [id number] Ordering Physician: aMgui Villalpando Dictated By: Kareem Ackerman MD Dictated Date/Time: 02/26/22 3:17 pm Reviewed By: Kareem Ackerman MD Signed By: Kareem Ackerman MD Signed Date/Time: 02/26/22 3:17 pm Transcribed By: ALEXIS Transcribed Date/Time: 02/26/22 3:17 pm Hospital Progress note Manjit Bautista MD: PERFORM, SIGN, VERIFY Event Display: Progress Note Hospital Authored Date: [id number] Patient: SHEREEN TAYLOR Age: 31 years Sex: Female : 1990 Associated Diagnoses: None Author: Manjit Bautista MD Overnight Events & Current Issues Seen AM. All recent data reviewed Review of Systems Review of Systems Respiratory negative. Cardiovascular negative. Gastrointestinal negative. Physical Examination Vital Signs Vitals : VITALS 03/10/2022 5:00 EST Systolic Blood Pressure 144 mm Hg H Diastolic Blood Pressure 85 mm Hg H Blood pressure sites Arm, right . General Appearance Fatigued. HEENT Moist mucous membranes. Respiratory Decreased breath sounds: at bases. Cardiac Rhythms: RRR. Abdomen/GI Abdomen: soft. Extremities No edema. Neurologic Sleepy but arousable. Results Review 7 Day Results Results Laboratory : LABORATORY 03/09/2022 0:23 EST Sodium 130 mmol/L L Potassium 4.5 mmol/L Chloride 100 mmol/L Bicarbonate Level 21 mmol/L L Anion Gap 9 Glucose Level 101 mg/dL H BUN 32 mg/dL H Creatinine-Blood 3.8 mg/dL H Impression and Plan COMPREHENSIVE PLAN Acute kidney injury likely due to tubular injury (multifactorial etiology) Has advanced CKD at baseline. Had heart failure at presentation, which has compromised her renal perfusion. She had been having nausea and vomiting . She also received contrast dye for CT angiography. Her volume status is optimal now. Diuretics are currently on hold. No reason to suspect any obstructive uropathy, new acute glomerular or interstitial pathology causing her MYNOR. Renal function fairly stable; Labs AM; Shall arrange close office follow up if D/Cb Colindres RNs: PERFORM, SIGN, VERIFY Event Display: Progress Note Hospital Authored Date: Patient: SHEREEN TAYLOR Age: 31 years Sex: Female : 1990 Associated Diagnoses: None Author: Melissa Hunter RN Findings Evaluation Pt is A&O x 4 and is legally blind. Pt is able to make needs known. Refused morning medication due to pain. Complains of 8/10 pain, dilaudid not due yet. Pt was transferred to discharge unit. . Discharge Information Case Management Discharge Plan : Case Management Discharge Plan Data 03/07/2022 11:32 EST Discharge Medical Equipment Mis Descuentos Name of Agency #1 [facility] [employer] #1 intake Service Categories #1 Oxygen Therapy Service Comments #1 Pulmonary Nurse arranging oxygen with [facility]; if any issues or concern with equipment please call them directly. 03/07/2022 10:34 EST Discharge Medical Equipment Mis Descuentos Pulmonary Rehab Discharge : Pulmonary Rehab Discharge Status 03/07/2022 10:34 EST Patient Going Home on Oxygen Yes Portable unit required Yes Oxygen Sat. Rm. Air 87 % Oxygen Device used at Home Nasal cannula Liter flow 2 LPM Oxygen Use Duration With activity Informational handouts Oxygen Therapy Home care instructions An appointment has been scheduled with a pulmonary nurse. Nurse Communication (Pulmonary Rehab) Someone from [address] [place] [address] will call you for a follow up oxygen evaluation appt in 2-3 weeks.Kaelyn Lewis RN: PERFORM, SIGN, VERIFY, SIGN, MODIFY Event Display: Progress Note Hospital Authored Date: Patient: SHEREEN TAYLOR Age: 31 years Sex: Female : 1990 Associated Diagnoses: None Author: Kaelyn Lewis RN Findings Nursing Data Vital Signs : VITAL SIGNS SECTION 03/09/2022 22:04 EST Early Warning Score 7.00 03/09/2022 22:04 EST Temperature 97.7 DegF Temperature Route Oral Pulse Rate 112 bpm H Respiratory Rate 17 br/min Systolic Blood Pressure 122 mm Hg Diastolic Blood Pressure 74 mm Hg Blood pressure sites Arm, right Mean Arterial Pressure 90 mm Hg Pulse Pressure 48 mm Hg Oxygen Saturation 98 % Mode of Delivery (Oxygen) Room air . Narrative/Incidental Pt alert, orient x4. Able to make needs known. Legally blind. On 1L NC. Refused night time meds & prn po pain med dt nausea but also refusing IV nausea meds despite encouragement/teaching (MD Sellers aware). Pt c/o back/hip pain 11/05 at 2200 but refusing prn po med, made aware & at bedside for assessment, pt then c/o chest pain on & off, x1 diluadid ivp given per order, EKG done, trop x1 done & once resulted pt placed on tele. Next trop scheduled for 129. Pt continues w chronic pain but refusing any PO pain meds, made aware & will keep encouraging PO prn pain meds. Frequent checks performed, pt resting in bed w eyes close, VSS. .Joshua BETH, Kaelyn: PERFORM Event Display: Progress Note Hospital Authored Date: Dilaudid IVP x1 given being effective, pt then agreed to take po dilaudid 3hrs later being effective. Trops trending down. Safety maintained, VSS. Call light in reach, all needs attended. US.doppler Lower extremity vein - bilateral [facility]ers[facility] , CIS S: TRANSCRIBE Ct CARLSON, Constanza: VERIFY Del CARLSON, Panfilo T: SIGN Event Display: Result: Authored Date: US Doppler Ext Lower Venous Bilat Reason: Swelling Extremities; Clinical Question(s): Thrombosis COMPARISON: Venous Doppler ultrasound right lower extremity 12/13/2021. IMAGING TECHNIQUE: Ultrasound of the veins from the groin through the calf was performed using grayscale, color, and spectral Doppler ultrasound assessing for complete compressibility and normal flow characteristics. FINDINGS: RIGHT LOWER EXTREMITY: Common femoral vein: Patent. No thrombosis. Femoral vein: Patent. No thrombosis. Popliteal vein: Patent. No thrombosis. Gastrocnemius veins: The visualized portions are patent without evidence of thrombosis. Peroneal veins: The visualized portions are patent without evidence of thrombosis. Posterior tibial veins: The visualized portions are patent without evidence of thrombosis. LEFT LOWER EXTREMITY: Common femoral vein: Patent. No thrombosis. Femoral vein: Patent. No thrombosis. Popliteal vein: Patent. No thrombosis. Gastrocnemius veins: The visualized portions are patent without evidence of thrombosis. Peroneal veins: The visualized portions are patent without evidence of thrombosis. Posterior tibial veins: The visualized portions are patent without evidence of thrombosis. OTHER FINDINGS: IMPRESSION: No sonographic evidence of deep venous thrombosis. I have personally reviewed the images and I agree with this report. WSN: [id number] Ordering Physician: Jessica Garrison Dictated By: Panfilo Mathis MD Dictated Date/Time: 02/28/22 10:29 a Reviewed By: Constanza Fofana MD Signed By: Constanza Fofana MD Signed Date/Time: 02/28/22 10:34 am Transcribed By: ALEXIS Transcribed Date/Time: 02/28/22 10:20 am RF Esophagus Views W barium contrast PO [facility]erscribe , CIS S: TRANSCRIBE Gurdeep Graham: SIGN Adiel CARLSON, Joshua V: VERIFY Event Display: Result: Authored Date: PROCEDURE: Esophagus Barium Swallow CLINICAL INDICATION: Reason: Dysphagia; Clinical Question(s): Stricture Esophagus COMPARISONS: None FLUOROSCOPY TIME: 1 minute 24 seconds EXPOSURE: 2378.8 uGym2 TECHNIQUE: Barium contrast esophagram was performed by Juanpablo Kirkpatrcik PA-C. Patient studied semiupright only FINDINGS: Swallow: Normal oral and pharyngeal phases with no laryngeal penetration or subglottic aspiration. Esophagus: Normal in contour and mucosal appearance. Normal esophageal motility, with prompt transitof liquid barium into the stomach. No hiatal hernia. No spontaneous gastroesophageal reflux was appreciated during the study. A 13 mm barium tablet passed unimpeded into the stomach. No evidence of esophageal web, narrowing or outpouching. No esophageal obstruction. The stomach and proximal duodenum are grossly normal. Contrast promptly empties from the stomach into a nondilated duodenum. No gastric outlet obstruction. IMPRESSION: Unremarkable esophagram with findings as described. By undersigning and finalizing the report, the attending radiologist confirms he/she has personally reviewed and interpreted the images and agrees with the description of the findings. I have personally reviewed the images and I agree with this report. WSN: [id number] Ordering Physician: Letha Jenkins Dictated By: Gurdeep Graham Dictated Date/Time: 03/03/22 11:50 a Reviewed By: Joshua Chun MD, V Signed By: Joshua Chun MD, V Signed Date/Time: 03/03/22 11:55 am Transcribed By: ALEXIS Transcribed Date/Time: 03/03/22 11:43 am Retroperitoneum [facility] , CIS S: TRANSCRIMichele Montesinos MD: VERIFY Event Display: Result: Authored Date: [id number] Retroperitoneum Comp INDICATION/CLINICAL QUESTION: Reason: Other:; MYNOR; Clinical Question(s): Acute Renal Failure; Order Comment: Retroperitoneum Ltd Prep / Acute Renal Failure. Patient Age 31 years COMPARISON: Retroperitoneal ultrasound 11/15/2021 FINDINGS: Right kidney: 11.1 cm in length. No hydronephrosis. Increased parenchymal echogenicity. No stones. No suspicious mass. Trace nonspecific perinephric fluid along the lateral aspect of the kidney Left kidney: 11.3 cm in length. No hydronephrosis. Increased parenchymal echogenicity. No stones. Nosuspicious mass. Urinary bladder: Normal. No stone, mass, wall thickening or debris. Bilateral ureteral jets are identified on color Doppler imaging suggesting ureterovesicular junction patency. IMPRESSION: No hydronephrosis. Mildly echogenic kidneys bilaterally which may be related to medical renal disease. WSN: [id number] Ordering Physician: Steve Esposito Dictated By: Michele Goncalves MD Dictated Date/Time: 03/01/22 4:06 pm Reviewed By: Michele Goncalves MD Signed By: Michele Goncalves MD Signed Date/Time: 03/01/22 4:06 pm Transcribed By: ALEXIS Transcribed Date/Time: 03/01/22 4:03 pm CTA Chest vessels W contrast IV [facility] , CIS S: TRANSCEmy Mckeon MD: VERIFY Event Display: Result: Authored Date: [id number] EXAMINATION: CT Angio Chest Hx of Present Illness: pt c o left sided chest pain with radiation to left shoulder and left side ofribs x3 days; pt also reports +n v d, dizziness, headache, and dyspnea at rest, worse with exertion;Reason: Other:; PE suspected, Intermediate prob, positive D-dimer,; Clinical Question(s): Pulmonary Embolism. TECHNIQUE: Spiral CTA of the chest was performed after rapid IV contrast administration without cardiac gating, triggered by an KECIA on the main pulmonary artery. Images are formatted in multiple planesusing 2-D multiplanar and 3-D maximum intensity projection. 50 cc of Omnipaque 300 was administered i ntravenously. Weight-based protocol using automatic tube modulation was used to optimize exposure parameters. CTDIvol Body: 8.20 mGy, DLP Body: 318 mGy*cm. COMPARISONS: Chest x-ray from earlier today and CT angiogram of the chest dated 04/20/2021. ANGIOGRAPHIC FINDINGS: No pulmonary embolism to the subsegmental level. Normal caliber pulmonary arteries. No acute aortic abnormality seen on this study performed without cardiac gating. NON-ANGIOGRAPHIC FINDINGS: Conveyor Loader View Findings, Lines and Tubes: None. Trachea and Airways: Patent without evidence of tracheal or endobronchial lesion. Lungs and Pleura: There is a moderate right and small left pleural effusion. No evidence of pneumothorax. There is compressive atelectasis in both lower lobes. Mediastinum and winston: No mass or hematoma. No mediastinal or hilar lymphadenopathy. No esophageal abnormality. Heart: Heart is normal in size. There is a small to moderate pericardial effusion. Chest Wall Soft Tissues: Normal. Diaphragm and upper abdomen: No significant abnormality. Status post cholecystectomy. Bones: No acute abnormality. IMPRESSION: 1. No evidence of pulmonary embolism. 2. Moderate right and small left pleural effusions with mild adjacent compressive atelectasis. 3. Small to moderate pericardial effusion. WSN: [id number] Ordering Physician: Magui Villalpando Dictated By: Emy Campbell MD Dictated Date/Time: 02/26/22 5:40 pm Reviewed By: Emy Campbell MD Signed By: Emy Campbell MD Signed Date/Time: 02/26/22 5:40 pm Transcribed By: ALEXIS Transcribed Date/Time: 02/26/22 5:[address] Abdomen and Pelvis WO contrast [facility] , CIS S: TRANSCRIBE Kiara Campo DO P: SIGN Mihai Allen MD: VERIFY Event Display: Result: Authored Date: [id number] CT Abdomen and Pelvis W/O Contrast REASON: Pain; nausea and vomiting (small amount of coffee ground emesis). History of nonischemic cardiomyopathy, severe preeclampsia with demise 11/2021. TECHNIQUE: Spiral CT through the abdomen and pelvis without IV contrast formatted in 3 planes. This study was performed without oral contrast. Weight- based protocol using automatic tube modulation was used to optimize exposure parameters. CTDIvol Body: 20.20 mGy, DLP Body: 1129 mGy*cm. COMPARISON: 02/13/2022. FINDINGS: Conveyor Loader View Findings, Lines and Tubes: None. Visualized Chest: Moderate right and [id number] left pleural effusions unchanged from 02/26/2022. Mild atelectasis of the lower lobes. Unchanged small pericardial effusion. Diaphragm: Normal. Liver: Normal. Gallbladder: Status post cholecystectomy. Bile ducts: No biliary ductal dilation. Spleen: Normal. Pancreas: Normal. Adrenal glands: Normal. Kidneys and ureters: Unchanged punctate nonobstructing calcifications in both kidneys. Hyperdense appearance of the renal cortices relative to the pyramids compatible with known renal dysfunction (202:64). Trace amount of IV contrast in the renal collecting systems. No hydronephrosis or noncontrast evidence of suspicious masses. Bladder: IV contrast from prior CTA chest excreted in the urinary bladder. Reproductive organs: Unremarkable. Stomach, small bowel, and large bowel: No bowel obstruction or inflammatory changes. Mild sigmoid diverticulosis without acute diverticulitis. Appendix: Normal. Peritoneum and retroperitoneum: Decreased right posterior pararenal hematoma, now appearing as tracefocal thickening of the right posterior renal fascia measuring up to 0.4 cm in thickness, previously1.2 cm. Trace fluid in the cul-de-sac, likely physiologic. No pneumoperitoneum. No omental or mesenteric lesions. Lymph nodes: Unchanged mildly enlarged periaortic nodes measuring up to 1.1 cm. Unchanged mildly enlarged 1.1 cm right external iliac chain lymph node. Blood vessels: Normal. No aneurysm. Abdominal and pelvic wall: Mild edema. Bones: Unchanged subacute to chronic right anterolateral eighth rib fracture. Spine degenerative changes with on changed endplate sclerosis and subchondral cystic change at L4-L5 IMPRESSION: No new acute findings within the abdomen. Continued decrease in trace right posterior retroperitoneal hematoma, now appearing as trace focal thickening of the right posterior renal fascia, measuring 0.4 cm in thickness. Unchanged moderate right and small moderate left pleural effusions relative to 02/26/2022. Unchanged small pericardial effusion. I have personally reviewed the images and I agree with this report. WSN: [id number] Ordering Physician: Steve Esposito Dictated By: Kiara Campo DO Dictated Date/Time: 03/01/22 8:06 am Reviewed By: Mihai Allen MD Signed By: Mihai Allen MD Signed Date/Time: 03/01/22 8:11 am Transcribed By: ALEXIS Transcribed Date/Time: 03/01/22 7:40 am XR Abdomen AP [facility]owers[facility] , CIS S: TRANSCRIBE Preet Gonzales MD: VERIFY Event Display: Result: Authored Date: [id number] XR Abdomen AP supine view INDICATION/CLINICAL QUESTION: Nausea and vomiting COMPARISON: 09/23/2021 FINDINGS: Normal bowel gas pattern. No evidence of obstruction. No evidence of pneumoperitoneum. No organomegaly, masses or calcifications. No acute bone findings. IMPRESSION: Normal. WSN: [id number] Ordering Physician: Steve Esposito Dictated By: Preet Gonzales MD Dictated Date/Time: 02/27/22 5:13 pm Reviewed By: Preet Gonzales MD Signed By: Preet Gonzales MD Signed Date/Time: 02/27/22 5:13 pm Transcribed By: ALEXIS Transcribed Date/Time: 02/27/22 5:13 pm Patient Care team information Care Team [...] Care Nurse Name: Gomez Moseley RN Position: S RN Supv Member Role: Primary Care Nurse Name: Vashti Bruce RN Position: S RN Member Role: Primary Care Nurse Name: Raghav Granger Position: [facility] RN Member Role: Primary Care [...] SOUTH Outreach Member Role: PCP Address: Address: [address] [place] [address]- [place] Name: Michele Blancas DO Position: [facility] Renal MD Member Role: [employer] Consulting Physician Address: Address: [address] [place] [address] [address] [facility] [place] [address]- [place] Name: María Acosta RN [facility]: [facility] Role: Lifetime Consulting Physician Address: Address: [address] [facility] [address] [facility] [place] [address]- [place] Name: Heather Pal RN Position: [facility] Member Role: Lifetime Consulting Physician Address: Address: [address] [place] [address] [facility] [place], [place] [address] Name: Kaelyn Lewis RN Position: [facility] RN Member Role: Primary Care Nurse Name: Lianne Byrnes RN Position: [facility] RN Member Role: Primary Care Nurse Name: Tona Jacome LPN Position: [facility] RN Member Role: Primary Care Nurse Name: Kaitlin BETH, Tatiana Dennis Position: [facility] RN Member Role: Primary Care Nurse Name: Jose Callejas RN Position: [facility] RN Member Role: Primary Care Nurse Name: Ashely Riley Position: [facility] RN Member Role: Primary Care Nurse Name: Vy RAMIREZ Attending Position: [facility] ED Medicine MD Name: Angelica Bauer Position: [facility] ED TA [facility] Member Role: Manager Track Name: Brandee Cosby Position: [facility] ED OA Charge Member Role: ED Associate Name: Alf Lopez RN Position: [facility] ED RN W/OE and Tasks Member Role: Patient Care Provider Name: Les Ford MD Position: [facility] Resident Member Role: ED Resident Address: Address: [address] [place] [address] [place] [address]- [place] Care Team Related PersonsName: LEONOR MCFARLAND Address: home [address] [place] [address] Name: REJI TAYLOR Address: home [address] [place] [address] Name: JEFF CHAPMAN Address: [address] Address: home [address] [place] [address] [place] Name: ELI BONILLA Address: home [address] [place] [address]
[2022-03-31 18:50] VITALS: RESP 16
[2022-03-31] MEDS: HYDROmorphone HCl 0.5 MG/0.5 ML SYRINGE IVPUSH (18:50)
[2022-03-31] MEDS: ondansetron HCL 4 MG/2 ML VIAL IVPUSH (18:51)
[2022-03-31 18:52] LABS: MANUAL DIFF FLAG NO
[2022-03-31 18:53] LABS: Basophils Percent Auto 0.2 % (0-2); Eosinophils Absolute Auto 0.1 X10*3/uL (0.0-0.4); Eosinophils Percent Auto 1.5 % (0-4); Hematocrit 24.2 % (37.0-47.0); Hemoglobin 7.9 g/dl (12.0-16.0); Imm Gran Abs Auto 0.03 X10*3/uL (0.00-0.03); Imm Gran Pct Auto 0.4 % (0.0-0.4); Lymphocytes Absolute Auto 0.8 X10*3/uL (1.2-4.9); Lymphocytes Percent Auto 9.3 % (20-40); Mean Corpuscular HGB Conc 32.6 g/dl (31.0-35.0); Mean Corpuscular Hemoglobin 27.2 pg (27.0-33.0); Mean Corpuscular Volume 83.4 fL (80.0-98.0); Mean Platelet Volume 11.9 fL (9.4-12.3); Monocytes Absolute Auto 0.6 X10*3/uL (0.1-1.2); Monocytes Percent Auto 7.4 % (2-11); Neutrophils Absolute Auto 6.7 x10*3/uL (2.0-8.3); Neutrophils Percent Auto 81.2 % (45-73); Platelet Count 214 X10*3/uL (160-400); Red Cell Distribution Width 16.6 % (11.0-16.0); White Blood Count 8.3 X10*3/uL (4.8-10.8)
[2022-03-31 19:11] LABS: Alanine Aminotransferase 13 U/L (0-31); Alkaline Phosphatase 77 U/L (39-117); Anion Gap 17 (12-20); Aspartate Amino Transferase 15 U/L (5-31); Blood Urea Nitrogen 42 mg/dL (9-16); Carbon Dioxide 18 mmol/L (22-29); Chloride 105 mmol/L (96-108); Estimated Glomerular Filt Rate 16; Glucose Random 130 mg/dL (60-115); Potassium 3.7 mmol/L (3.3-5.1); Sodium 136 mmol/L (135-145); Total Protein 6.3 g/dL (6.5-8.0)
--- NOTE | 2022-03-31 19:15 | PC.NURSE ---
assumed care of pt alert and oriented no apparent distress, resting quietly
[2022-03-31 19:17] LABS: INTERNATIONAL NORM RATIO 1.1 (0.9-1.1); Prothrombin Time 12.9 SEC (10.0-13.1)
--- NOTE | 2022-03-31 19:52 | PC.NURSE ---
Addendum entered by Linette Flowers 03/31/22 19:52: provider notified Original Note: pt vomited 800mL
--- NOTE | 2022-03-31 19:55 | ED_ITS ---
HPI - Neuro Symptoms/Deficit General Chief Complaint: Stroke Stated Complaint: Stroke Time Seen by Provider: 03/31/22 17:47 Source: patient Mode of arrival: EMS Limitations: no limitations History of Present Illness HPI Narrative: Patient 31 years old female with history of hypertension, HFr EF, CKD stage 3, type 1 diabetes, diabetic neuropathy, legally blind, multiple left toe amputation and history of right foot osteomyelitis came as patient noticed since 15:30 right fronto temporal headache with left-sided numbness/weakness was in the car with her friend for last 2 hours friend called the EMS as patient was having headache very poor historian initially patient said right-sided weakness and numbness no facial droop no speech problem no seizures POC was 130 on arrival. Patient was able to stand up from the car and took few steps Related Data Home Medications Medication Instructions Recorded Confirmed acetaminophen 325 mg tablet 325 mg PO 04/01/22 amlodipine 5 mg tablet 1 tab PO DAILY 04/01/22 04/01/22 aspirin 81 mg tablet,delayed 2 tab PO DAILY 04/01/22 04/01/22 release carvedilol 12.5 mg tablet 1 tab PO BID 04/01/22 04/01/22 carvedilol 25 mg tablet 1 tab PO BID 04/01/22 04/01/22 diclofenac sodium 1 % topical gel 1 applic topical QID 04/01/22 04/01/22 insulin detemir U-100 100 unit/mL 8 unit subcut BEDTIME 04/01/22 04/01/22 (3 mL) subcutaneous pen (Levemir FlexTouch U-100 Insulin) metoclopramide HCl 5 mg tablet 1 tab PO Q6H PRN nausea/vomiting 04/01/22 04/01/22 nifedipine 30 mg tablet,extended 1 tab PO DAILY 04/01/22 04/01/22 release 24 hr ondansetron HCl 4 mg tablet 1 tab PO Q8H PRN nausea/vomiting 04/01/22 04/01/22 oxycodone 5 mg tablet 5 mg PO 04/01/22 pantoprazole 40 mg tablet,delayed 1 tab PO DAILY 04/01/22 04/01/22 release torsemide 20 mg tablet 1 tab PO DAILY 04/01/22 04/01/22 Previous Rx's Medication Instructions Recorded insulin detemir U-100 100 unit/mL 20 unit (0.2 mL) subcut DAILY #0 mL 10/16/21 (3 mL) subcutaneous pen (Levemir FlexTouch U-100 Insulin) Allergies Allergy/AdvReac Type Severity Reaction Status Date / Time morphine [MORPHINE] Allergy Intermediate Itching Verified 01/14/21 07:31 azithromycin [From Zithromax] Allergy Hives Verified 04/21/21 21:21 vancomycin Allergy Hives Verified 04/21/21 21:21 Review of Systems Review of Systems: Yes all other systems are reviewed and are negative [facility] Past Medical History Medical History Abnormal finding on echocardiogram Acute dyspnea Acute worsening of stage 3 chronic kidney disease MYNOR (acute kidney injury) Asthma Back pain Blind right eye Bone infection Cellulitis Cellulitis and abscess of foot Chest pain CHF (congestive heart failure) Depression with anxiety Diabetes Diabetic retinopathy DM foot ulcer Elevated troponin Essential hypertension Fever Generalized edema HTN (hypertension) Migraine Osteomyelitis PAD (peripheral artery disease) Pleural effusion test positive test positive Sepsis Severe anemia Tachycardia Type 2 diabetes mellitus with hyperglycemia, with long-term current use of insulin Surgical History History of transmetatarsal amputation of foot S/P transmetatarsal amputation of foot Family History Family History Mother Coronary artery disease Myocardial infarction Stroke Diabetes mellitus Father Myocardial infarction Social History Social History Household Members: Significant Other Household Members Other:: Sister, [id number], nephew Housing: Apartment Do you presently have visiting nurse or other home services: Yes (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 Oriented X3. No acute distress. Eyes: Legally blind see only shadows ENT: Pharynx normal. Oral Mucosa moist Neck: Normal inspection. Neck supple. CVS: Normal heart rate and rhythm. Pulses normal. Respiratory: No respiratory distress. Equal air entry bilateral, no wheezing/rales/rhonchi Abdomen: Soft and nontender. Bowel sounds are present, no mass palpable, no CVA tenderness Skin: Skin warm and dry. Normal skin color. Normal skin turgor. Extremities: No lower extremity edema. No calf tenderness Neuro: Oriented X 3. 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 as compared to 5/5 right-sided storage battery charger same left lower extremity 4/4 strength and right 5/5 normal speech no facial asymmetry Medications Administered Generic Name Dose Route Start Last Admin Trade Name Freq PRN Reason Stop Dose Admin Enoxaparin Sodium 30 mg 03/31/22 22:30 03/31/22 23:30 Enoxaparin Sodium 30 Mg/0.3 Ml Syringe SUBCUT Not Given Q24H VASILE Sodium Chloride 3 ml 04/01/22 00:00 04/01/22 00:10 0.9 % Sodium Chloride Flush 3 Ml Syringe IVFLUSH 3 ml QSHIFT VASILE Administration Discontinued Medications Generic Name Dose Route Start Last Admin Trade Name Freq PRN Reason Stop Dose Admin Aspirin 162 mg 03/31/22 22:00 03/31/22 22:12 Aspirin Enteric Coated 81 Mg Tablet. PO 03/31/22 22:01 162 mg ONCE ONE Administration Hydromorphone HCl 0.5 mg 03/31/22 18:16 03/31/22 18:50 Hydromorphone Hcl 0.5 Mg/0.5 Ml Syringe IVPUSH 03/31/22 18:17 0.5 mg ONCE ONE Administration Protocol Sodium Chloride 1,000 mls @ 999 mls/hr 03/31/22 19:54 03/31/22 22:15 Ns IV 03/31/22 20:54 Infused .Q1H1M ONE Infusion Ondansetron HCl 4 mg 03/31/22 18:16 03/31/22 18:51 Ondansetron Hcl 4 Mg/2 Ml Vial IVPUSH 03/31/22 18:17 4 mg ONCE ONE Administration Medical Decision Making Medical Decision Making [facility] Narrative: Patient has significant headache with slight weakness on the left side without any facial or speech not very clear whether the weakness or subjective weakness. Case discussed with Dr. Malik with patient background of diabetes and elevated creatinine to 3 advised not to do any CTA at it does not look like MCA category stroke. Advised to continue aspirin and plan for MRI/MRA tomorrow possible patient has a migraine headache with left-sided weakness Consult Healthcare Provider Management of the patient was discussed with: Hospitalist Lab Data [facility] Lab Attestation statement: I reviewed the patient's lab results. 03/31/22 18:42 03/31/22 18:42 Labs: Lab Results 03/31/22 03/31/22 03/31/22 Range/Units 17:54 18:42 18:42 WBC 8.3 (4.8-10.8) X10*3/uL RBC 2.90 L (4.20-5.50) X10*6/uL Hgb 7.9 L (12.0-16.0) g/dl Hct 24.2 L (37.0-47.0) % MCV 83.4 (80.0-98.0) fL MCH 27.2 (27.0-33.0) pg MCHC 32.6 (31.0-35.0) g/dl RDW 16.6 H (11.0-16.0) % Plt Count 214 (160-400) X10*3/uL MPV 11.9 (9.4-12.3) fL Immature Gran % (Auto) 0.4 (0.0-0.4) % Neut % (Auto) 81.2 H (45-73) % Lymph % (Auto) 9.3 L (20-40) % [place] % (Auto) 7.4 (2-11) % Eos % (Auto) 1.5 (0-4) % Baso % (Auto) 0.2 (0-2) % Lymph # (Auto) 0.8 L (1.2-4.9) X10*3/uL [place] # (Auto) 0.6 (0.1-1.2) X10*3/uL Eos # (Auto) 0.1 (0.0-0.4) X10*3/uL Baso # (Auto) 0.0 (0.0-0.2) X10*3/uL Abs Immat Gran (auto) 0.03 (0.00-0.03) X10*3/uL Absolute Neuts (auto) 6.7 (2.0-8.3) x10*3/uL Absolute Nucleated RBC 0.000 (0.0-0.012) X10*3/uL Nucleated RBC % (auto) 0.0 (0.0-0.2) /100WBC PT 12.9 (10.0-13.1) SEC INR 1.1 (0.9-1.1) Sodium (135-145) mmol/L Potassium (3.3-5.1) mmol/L Chloride (96-108) mmol/L Carbon Dioxide (22-29) mmol/L Anion Gap (12-20) BUN (9-16) mg/dL Creatinine (0.5-1.4) mg/dL Estim Creat Clear Calc Estimated GFR POC Glucose 132 H (60-115) mg/dL Random Glucose (60-115) mg/dL Calcium (8.4-10.2) mg/dL Magnesium (1.6-2.6) mg/dL Total Bilirubin (0.0-1.0) mg/dL AST (5-31) U/L ALT (0-31) U/L Alkaline Phosphatase (39-117) U/L Total Protein (6.5-8.0) g/dL Albumin (3.5-5.0) g/dL 03/31/22 03/31/22 Range/Units 18:42 19:54 WBC (4.8-10.8) X10*3/uL RBC (4.20-5.50) X10*6/uL Hgb (12.0-16.0) g/dl Hct (37.0-47.0) % MCV (80.0-98.0) fL MCH (27.0-33.0) pg MCHC (31.0-35.0) g/dl RDW (11.0-16.0) % Plt Count (160-400) X10*3/uL MPV (9.4-12.3) fL Immature Gran % (Auto) (0.0-0.4) % Neut % (Auto) (45-73) % Lymph % (Auto) (20-40) % [place] % (Auto) (2-11) % Eos % (Auto) (0-4) % Baso % (Auto) (0-2) % Lymph # (Auto) (1.2-4.9) X10*3/uL [place] # (Auto) (0.1-1.2) X10*3/uL Eos # (Auto) (0.0-0.4) X10*3/uL Baso # (Auto) (0.0-0.2) X10*3/uL Abs Immat Gran (auto) (0.00-0.03) X10*3/uL Absolute Neuts (auto) (2.0-8.3) x10*3/uL Absolute Nucleated RBC (0.0-0.012) X10*3/uL Nucleated RBC % (auto) (0.0-0.2) /100WBC PT (10.0-13.1) SEC INR (0.9-1.1) Sodium 136 (135-145) mmol/L Potassium 3.7 (3.3-5.1) mmol/L Chloride 105 (96-108) mmol/L Carbon Dioxide 18 L (22-29) mmol/L Anion Gap 17 (12-20) BUN 42 H (9-16) mg/dL Creatinine 3.33 H (0.5-1.4) mg/dL Estim Creat Clear Calc 26.0 Estimated GFR 16 POC Glucose 120 H (60-115) mg/dL Random Glucose 130 H (60-115) mg/dL Calcium 8.0 L D (8.4-10.2) mg/dL Magnesium 2.0 (1.6-2.6) mg/dL Total Bilirubin 1.0 (0.0-1.0) mg/dL AST 15 (5-31) U/L ALT 13 (0-31) U/L Alkaline Phosphatase 77 (39-117) U/L Total Protein 6.3 L (6.5-8.0) g/dL Albumin 3.0 L (3.5-5.0) g/dL Independent Interpretation I performed an independent interpretation of an: EKG Interpretation: Normal sinus rhythm right bundle-branch block no acute ST changes no acute ischemia NIH Stroke Scale Internal: Initial- Upon Arrival Level of Consciousness: Alert Level of Consciousness Questions: Answers both questions correctly Level of Consciousness Commands: Performs both tasks correctly Best Gaze: Normal Visual: No visual loss Facial Palsy: Normal Motor Arm (Right): No drift Motor Arm (Left): No drift Motor Leg (Right): No drift Motor Leg (Left): No drift Limb Ataxia: Absent Sensory: Normal Best Language: No aphasia Dysarthia: Normal Extinction and Inattention: No abnormality Score: 0 Discharge Plan Discharge Clinical Impression: Transient cerebral ischemia, Headache, migraine, CKD (chronic kidney disease) Patient Disposition: Admitted As Inpatient
[2022-03-31 19:57] VITALS: BP 154/76; PULSE 95; RESP 16; O2SAT 97
[2022-03-31 20:02] LABS: Glucose, Whole Blood 120 mg/dL (60-115)
[2022-03-31] MEDS: 0.9 % Sodium Chloride 1,000 ML 999 ML IV (20:13)
--- NOTE | 2022-03-31 20:13 | PC.NURSE ---
per provider 1L of NS due to pt's vomitous episode
[2022-03-31] MEDS: Aspirin Enteric Coated 81 MG TABLET.DR 162 MG PO (22:12)
--- NOTE | 2022-03-31 22:31 | P.HPHOSP_ITS ---
History of Present Illness Date of Service: 03/31/22 Attending physician on admission: Alejandra Sewell Chief Complaint: Right-sideded weakness Pt is a 31-year-old female with a PMH significant for?HTN, HFrEF, CKD stage 3, insulin-dependent diabetes, diabetic neuropathy legally blind, s/p right TMA, multiple left toe amputations, and hx of right foot osteomyelitis who presents to the ED with?right-sided numbness and weakness. Full HPI difficult to obtain d/t pt's inability to recall event in question. Pt states she was sitting in the car with her nephews this afternoon when she suddenly had a headache and back ache. Headache was sharp, throbbing, and on both sides. Back ache was in the center and ran the full length of her spine. Pt doesn't remember her nephews calling EMS, but remembers being in the ambulance. She feels like her whole face is numb and had one episode of nausea and vomiting in the ED, but denies any other symptoms. No chest pain/pressure, palpitations. No SOB. Denies abdominal pain, changes in bowel or bladder habits. In the ED patient was afebrile and mildly hypertensive. Labs were significant for H&H of 7.9/24.2 (stable, at baseline), creatinine of 3.33 (near new baseline established in 12/2021). CT?of head showed new finding of subtle hyperattenuat ion along the posterior globe contours possibly suggestive retinal hemorrhage or detachment; otherwise no other evidence of acute territorial infarct or hemorrhage. EKG demonstrated normal sinus rhythm with a right bundle torsten block with no evidence of ST elevations or depressions. Pt was treated with aspirin, IV fluids, hydromorphone, ondansetron. Pt will be admitted to the hospital to observation on telemetry for treatment and further evaluation for possible TIA. Review of Systems Review of Systems: Headache Central back pain Facial numbness Nausea, vomiting No chest pain/pressure, palpitations Denies shortness of breath no abdominal pain, fever, chills Yes all other systems are reviewed and are negative [facility] Medical History (Updated 04/01/22 @ 00:20 by JOVON Botello) Abnormal finding on echocardiogram Acute dyspnea Acute worsening of stage 3 chronic kidney disease MYNOR (acute kidney injury) Asthma Back pain Blind right eye Bone infection Cellulitis Cellulitis and abscess of foot Chest pain CHF (congestive heart failure) Depression with anxiety Diabetes Diabetic retinopathy DM foot ulcer Elevated troponin Essential hypertension Fever Generalized edema HTN (hypertension) Migraine Osteomyelitis PAD (peripheral artery disease) Pleural effusion test positive test positive Sepsis Severe anemia Tachycardia Type 2 diabetes mellitus with hyperglycemia, with long-term current use of insulin Family History Mother Coronary artery disease Myocardial infarction Stroke Diabetes mellitus Father Myocardial infarction Surgical History History of transmetatarsal amputation of foot S/P transmetatarsal amputation of foot Social History Household Members: Significant Other Household Members Other:: Sister, Vdvlasl-ro-Ava, nephew Housing: Apartment Do you presently have visiting nurse or other home services: Yes (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) Alcohol intake: never Patient Tobacco Use Status: Never used Tobacco e-Cigarette/Vaping Use: Never Used Second Hand Smoke Exposure: No Advance Directives: No Advance Directives Information Provided: No Advance Directives Date on File: 03/08/20 service: No Current occupational status: unemployed and disabled Gender identity: Female Meds Allergies Allergy/AdvReac Type Severity Reaction Status Date / Time morphine [MORPHINE] Allergy Intermediate Itching Verified 01/14/21 07:31 azithromycin [From Zithromax] Allergy Hives Verified 04/21/21 21:21 vancomycin Allergy Hives Verified 04/21/21 21:21 Active Medications: Current Medications Acetaminophen (Acetaminophen 325 Mg Tablet) 650 mg PO Q6H PRN PRN Reason: Pain, Mild (Pain Scale 1-3) Dextrose (Dextrose 50 % 25 Gm/50 Ml Syringe) 25 gm IVPUSH Q15M PRN; Protocol PRN Reason: per Hypoglycemia Standing Ord. Enoxaparin Sodium (Enoxaparin Sodium 30 Mg/0.3 Ml Syringe) 30 mg SUBCUT Q24H VASILE Glucose (Glucose Gel 15 Gm Gel..Gram.) 15 gm PO Q15M PRN; Protocol PRN Reason: per Hypoglycemia Standing Ord. Insulin Human Lispro (Insulin Lispro 100 Unit/Ml 3 Ml Vial) 0 unit SUBCUT QIDACHS VASILE; Protocol Melatonin (Melatonin 3 Mg Tablet) 6 mg PO BEDTIME PRN PRN Reason: Insomnia Ondansetron HCl (Ondansetron Hcl 4 Mg/2 Ml Vial) 4 mg IVPUSH Q8H PRN PRN Reason: Nausea and Vomiting Pharmacy Consult (Consult Rx Perform Med Rec) 1 each MISCELLANE ONCE PRN PRN Reason: Consult order Sodium Chloride (0.9 % Sodium Chloride Flush 3 Ml Syringe) 3 ml IVFLUSH [facility] Home Medications Medication Instructions Recorded Confirmed Last Taken Type empagliflozin 10 mg tablet 1 tab PO QAM 12/07/20 01/14/21 Unknown History (Jardiance) insulin aspart U-100 100 unit/mL See Protocol subcut DIRECTED 12/07/20 01/14/21 Unknown History (3 mL) subcutaneous pen (Novolog PRN Hyperglycemia FlexPen U-100 Insulin aspart) sertraline 25 mg tablet 1 tab PO DAILY 12/07/20 01/14/21 Unknown History Physical Exam Vital Signs and Narrative: Vital Signs: Last Vital Signs Temp 98.2 F 03/31/22 18:01 Pulse 95 03/31/22 19:57 Resp 16 03/31/22 19:57 BP 154/76 H 03/31/22 19:57 Pulse Ox 97 03/31/22 19:57 O2 Del Method 03/31/22 19:57 BMI result Body Mass Index 29.5 Constitutional: Alert, in no acute distress. Mental Status: Oriented to person, place and time. Ear, Nose, and Throat: Oropharynx clear, mucous membranes moist. Ears and nose without deformities. Trachea midline. Respiratory: Clear to auscultation bilaterally. No wheezing, rales, or rhonchi. Cardiovascular: S1, S2 regular. No murmurs, rubs, or gallops. Gastrointestinal: Abdomen soft, non-tender, non-distended. Normal bowel sounds. Neurologic: Diminished 3/5 right-sided sensation to light touch of face, upper and lower extremities. Diminished 3/5 right-sided strength to upper and lower extremities. Skin: No rashes or lesions noted. Extremities: No edema. Psychiatric: Normal mood and affect. Results Labs 03/31/22 18:42 03/31/22 18:42 Labs: Laboratory Results - last 24 hr 03/31/22 03/31/22 03/31/22 17:54 18:42 18:42 MCV 83.4 MCH 27.2 MCHC 32.6 RDW 16.6 H Plt Count 214 MPV 11.9 Immature Gran % (Auto) 0.4 Neut % (Auto) 81.2 H Lymph % (Auto) 9.3 L [place] % (Auto) 7.4 Eos % (Auto) 1.5 Baso % (Auto) 0.2 Lymph # (Auto) 0.8 L [place] # (Auto) 0.6 Eos # (Auto) 0.1 Baso # (Auto) 0.0 Abs Immat Gran (auto) 0.03 Absolute Neuts (auto) 6.7 Absolute Nucleated RBC 0.000 Nucleated RBC % (auto) 0.0 PT 12.9 INR 1.1 Anion Gap Estim Creat Clear Calc Estimated GFR POC Glucose 132 H Random Glucose Calcium Magnesium Total Bilirubin AST ALT Alkaline Phosphatase Total Protein Albumin 03/31/22 03/31/22 18:42 19:54 MCV MCH MCHC RDW Plt Count MPV Immature Gran % (Auto) Neut % (Auto) Lymph % (Auto) [place] % (Auto) Eos % (Auto) Baso % (Auto) Lymph # (Auto) [place] # (Auto) Eos # (Auto) Baso # (Auto) Abs Immat Gran (auto) Absolute Neuts (auto) Absolute Nucleated RBC Nucleated RBC % (auto) PT INR Anion Gap 17 Estim Creat Clear Calc 26.0 Estimated GFR 16 POC Glucose 120 H Random Glucose 130 H Calcium 8.0 L D Magnesium 2.0 Total Bilirubin 1.0 AST 15 ALT 13 Alkaline Phosphatase 77 Total Protein 6.3 L Albumin 3.0 L Imaging Radiologist's Impressions: Impressions Head CT 03/31/22 17:58 IMPRESSION: There is some subtle hyperattenuation along the posterior globe contours at rates as the possibility of a retinal hemorrhage or detachment. These findings are new when compared to CT imaging from 10/20/2018. Correlation with funduscopic examination is therefore recommended. Otherwise unremarkable examination in that there is no evidence of acute territorial infarct or hemorrhage. This critical result was discussed with Dr. Farfan at 6:09 PM on 03/31/2022 and it was ascertained that the content and urgency of the report was understood at the time of direct communication. Assessment and Plan (1) Headache: Status: Acute (2) Back pain: Status: Acute (3) Right sided numbness: Status: Acute (4) Right sided weakness: Status: Acute Plan Pt is a 31-year-old female with a PMH significant for?HTN, HFrEF, CKD stage 3, insulin-dependent diabetes, diabetic neuropathy legally blind, s/p right TMA, multiple left toe amputations, and hx of right foot osteomyelitis who presents to the ED with?right-sided numbness and weakness. Pt will be admitted to the hospital to observation on telemetry for treatment and further evaluation for possible TIA. Right-sided numbness and weakness, concerning for CVA CT with no evidence of acute territorial infarct or hemorrhage Pt given aspirin in ED, hold off on statin for now Carotid ultrasound MRI tomorrow morning Lipid panel Neurology consult Monitor on telemetry Headache, backache Pt denies fall, was sitting in car at time of incident CT of head clear for hemorrhage Pain management Nausea, vomiting Ondansetron prn CKD stage 3 Creatinine 3.33, at baseline Patient received 1 L of IVF ED Monitor Hx of HFrEF Not in acute exacerbation Continue furosemide Mood disorder Continue home meds Insulin-dependent DM, uncontrolled Hold home meds SSI, lantus Normocytic anemia Stable, at baseline Likely secondary to renal disease Pt has refused PRBC transfusion and procrit in the past Full Code Attending:?Dr. Sewell DVT Prophylaxis: Lovenox Pt will be admitted to the hospital to observation on telemetry for treatment and further evaluation for possible TIA. Time Spent With Patient Time: Total time managing care of this patient today ____ minutes. Quality Stroke Does the patient have a stroke diagnosis?: No Reason for No Anti-thrombotic by Day Two: N/A - Med Ordered (Pt given aspirin) VTE Prior VTE?: No VTE Risk Level:: Medical - moderate - high VTE Device Contraindication: Treatment Not Indicated VTE Drug Contraindication: N/A - Med Ordered
--- NOTE | 2022-03-31 23:30 | PC.NURSE ---
pt refused enoxaparin; provider notified
[2022-03-31 23:34] VITALS: BP 146/72; PULSE 89; RESP 19; O2SAT 96
[2022-03-31 23:54] LABS: Cholesterol 117 mg/dL; HDL Cholesterol 34 mg/dL; LDL Cholesterol Calculated 69 mg/dl; Triglycerides 70 mg/dL
[2022-04-01] VITALS (7 sets, daily range): BP systolic 172–200; BP diastolic 86–110; PULSE 93–99; RESP 15–20; TEMP 36.1–36.5; O2SAT 92–100; BMI 30.8
[2022-04-01] MEDS: 0.9 % Sodium Chloride Flush 3 ML SYRINGE IVFLUSH ×2 (00:10→23:54)
[2022-04-01 00:44] LABS: COVID-19 Test Negative (Negative); IDNOW Serial# 6674DD1D
--- NOTE | 2022-04-01 01:28 | PC.NURSE ---
med rec complete
--- NOTE | 2022-04-01 01:46 | PC.NURSE ---
pt vomited, refused tramadol due to nausea [place] txt with Dr Donato artis with tramadol PO? will speak to pt
--- NOTE | 2022-04-01 02:00 | PC.NURSE ---
pt refused tramadol with zofran, states she is allergic to tramadol provider notified provider refuses to prescribe any other med as it is contraindicated (ie, ketorolac) or patient is allergic (morphine) per provider [employer]
--- NOTE | 2022-04-01 03:36 | PC.NURSE ---
Report given to KIRIT Henson ([facility] [place]). Pt to go to rm [phone]
[2022-04-01 05:59] LABS: Estimated Average Glucose 126 mg/dL
--- NOTE | 2022-04-01 07:26 | PHA.MEDREC ---
Pharmacy Consult ? Medication Reconciliation Pharmacy has completed the medication reconciliation. Checked med rec done overnight
[2022-04-01 07:41] LABS: Glucose, Whole Blood 78 mg/dL (60-115)
--- NOTE | 2022-04-01 09:57 | PC.NURSE ---
pt A&O x 4, refused BP medications because they don't work. I am in pain and it'll just keep going up. pt educated on the importance of BP medication due to BP being 198/110 manually and pt still refused. Provider made aware.
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
[2022-04-01] MEDS: HYDROmorphone HCl 0.5 MG/0.5 ML SYRINGE IVPUSH ×3 (10:46→23:55)
[2022-04-01] MEDS: amLODIPine Besylate 5 MG TABLET PO (10:48)
[2022-04-01] MEDS: carvediloL 25 MG TABLET PO (10:48)
--- NOTE | 2022-04-01 11:01 | MHC.STROKE ---
03/31/22 EMS PRE-NOTIFIED STROKE ALERT C/O MENDIOLA AND LEFT SIDED WEAKNESS ONSET NOT CONFIRMED BUT COULD BE AROUND 1530. ARRIVED AT [facility] [place] 1744, SEEN BY PROVIDER, NIHSS = 0, STAT CT HEAD, DONE AT 1756, READ AT 1809. NO CTA DUE TO CRF. DR OSORIO NOTIFIED, SEE PROVIDER NOTES, EXCLUDED FROM TPA-THROMBOLYTICS BASED ON NIHSS OF ZERO. PASSED SWALLOW SCREEN PRIOR TO PO. PATIENT KNOWN TO STROKE SERVICE FROM PRIOR STROKE TPA GIVEN IN AUGUST 2017, SEE PRIOR NOTE. MULTIPLE STROKE RISK FACTORS, PATIENT ALSO LEGALLY BLIND. CALLED C THIS AM TO VERIFY CONSULT WAS CALLED TO NEUROLOGY, I WILL CONTINUE TO FOLLOW.
[2022-04-01 12:08] LABS: Glucose, Whole Blood 122 mg/dL (60-115)
--- NOTE | 2022-04-01 13:53 | PM.NEUROCN ---
History of Present Illness Data of Consult Service Date: 04/01/22 Primary Care Provider: Unknown Physician HPI Reason for consult: Right sided numbness 31-year-old female with a PMH significant for?HTN, HFrEF, CKD stage 3, insulin-dependent diabetes, diabetic neuropathy legally blind, s/p right TMA, multiple left toe amputations, and hx of right foot osteomyelitis who presents to the ED with?right-sided numbness and weakness. She was also having a headache. I discussed the case with ER and decision was made to not use tPA due to quesionable diagnosis and mild deficit. Today her symptoms were resolved and she was not having a headache. Review of Systems Review of Systems: No recent cold or flu like symptoms. [facility] [place] Past Medical History Medical History Abnormal finding on echocardiogram Acute dyspnea Acute worsening of stage 3 chronic kidney disease MYNOR (acute kidney injury) Asthma Back pain Blind right eye Bone infection Cellulitis Cellulitis and abscess of foot Chest pain CHF (congestive heart failure) Depression with anxiety Diabetes Diabetic retinopathy DM foot ulcer Elevated troponin Essential hypertension Fever Generalized edema HTN (hypertension) Migraine Osteomyelitis PAD (peripheral artery disease) Pleural effusion test positive test positive Sepsis Severe anemia Tachycardia Type 2 diabetes mellitus with hyperglycemia, with long-term current use of insulin Family History Family History Mother Coronary artery disease Myocardial infarction Stroke Diabetes mellitus Father Myocardial infarction Surgical History Surgical History History of transmetatarsal amputation of foot S/P transmetatarsal amputation of foot Social History Social History Household Members: Significant Other Household Members Other:: Sister, [id number], nephew Housing: Apartment Do you presently have visiting nurse or other home services: Yes ([employer] services) Alcohol intake: never Patient Tobacco Use Status: Never used Tobacco Smoked in Last 30 Days: No e-Cigarette/Vaping Use: Never Used Second Hand Smoke Exposure: No Use of substances other than those prescribed or required for medical reasons: No Advance Directives: No Advance Directives Information Provided: No Advance Directives Date on File: 03/08/20 Nutrition Risks: Acute nausea or vomiting x1 week service: No Current occupational status: unemployed and disabled Gender identity: Female Meds Allergies Allergy/AdvReac Type Severity Reaction Status Date / Time morphine [MORPHINE] Allergy Intermediate Itching Verified 01/14/21 07:31 azithromycin [From Zithromax] Allergy Hives Verified 04/21/21 21:21 vancomycin Allergy Hives Verified 04/21/21 21:21 Active Medications: Current Medications Acetaminophen (Acetaminophen 325 Mg Tablet) 650 mg PO Q6H PRN PRN Reason: Pain, Mild (Pain Scale 1-3) Amlodipine Besylate (Amlodipine Besylate 5 Mg Tablet) 5 mg PO DAILY [facility]; Protocol Last Admin: 04/01/22 10:48 Dose: 5 mg Carvedilol (Carvedilol 25 Mg Tablet) 25 mg PO BID [facility]; Protocol Last Admin: 04/01/22 10:48 Dose: 25 mg Dextrose (Dextrose 50 % 25 Gm/50 Ml Syringe) 25 gm IVPUSH Q15M PRN; Protocol PRN Reason: per Hypoglycemia Standing Ord. Enoxaparin Sodium (Enoxaparin Sodium 30 Mg/0.3 Ml Syringe) 30 mg SUBCUT Q24H [facility] Last Admin: 03/31/22 23:30 Dose: Not Given Glucose (Glucose Gel 15 Gm Gel..Gram.) 15 gm PO Q15M PRN; Protocol PRN Reason: per Hypoglycemia Standing Ord. Hydromorphone HCl (Hydromorphone Hcl 0.5 Mg/0.5 Ml Syringe) 0.5 mg IVPUSH Q4H PRN; Protocol PRN Reason: Pain, Mild (Pain Scale 1-3) Last Admin: 04/01/22 10:46 Dose: 0.5 mg Insulin Glargine (Insulin Glargine,Hum.Rec.Anlog 100 Unit/Ml 10 Ml Vial) 14 unit SUBCUT BEDTIME [facility] Insulin Human Lispro (Insulin Lispro 100 Unit/Ml 3 Ml Vial) 0 unit SUBCUT QIDACHS [facility]; Protocol Last Admin: 04/01/22 12:22 Dose: Not Given Melatonin (Melatonin 3 Mg Tablet) 6 mg PO BEDTIME PRN PRN Reason: Insomnia Non-Formulary Medication (Diclofenac Sodium) 1 applic TOPICAL QID [facility] Omeprazole (Omeprazole 20 Mg Capsule.Dr) 20 mg PO DAILY@0630 [facility] Ondansetron HCl (Ondansetron Hcl 4 Mg/2 Ml Vial) 4 mg IVPUSH Q8H PRN PRN Reason: Nausea and Vomiting Pharmacy Consult (Consult Rx Perform Med Rec) 1 each MISCELLANE ONCE PRN PRN Reason: Consult order Sodium Chloride (0.9 % Sodium Chloride Flush 3 Ml Syringe) 3 ml IVFLUSH QSHIFT [facility] Last Admin: 04/01/22 09:55 Dose: Not Given Home Medications Medication Instructions Recorded Confirmed Last Taken Type acetaminophen 325 mg tablet 325 mg PO NEEDED 04/01/22 04/01/22 Unknown History amlodipine 5 mg tablet 1 tab PO DAILY 04/01/22 04/01/22 Unknown History aspirin 81 mg tablet,delayed 2 tab PO DAILY 04/01/22 04/01/22 Unknown History release carvedilol 12.5 mg tablet 1 tab PO BID 04/01/22 04/01/22 Unknown History diclofenac sodium 1 % topical gel 1 applic topical QID 04/01/22 04/01/22 Unknown History insulin detemir U-100 100 unit/mL 8 unit subcut BEDTIME 04/01/22 04/01/22 Unknown History (3 mL) subcutaneous pen (Levemir FlexTouch U-100 Insulin) metoclopramide HCl 5 mg tablet 1 tab PO Q6H PRN nausea/vomiting 04/01/22 04/01/22 Unknown History nifedipine 30 mg tablet,extended 1 tab PO DAILY 04/01/22 04/01/22 Unknown History release 24 hr ondansetron HCl 4 mg tablet 1 tab PO Q8H PRN nausea/vomiting 04/01/22 04/01/22 Unknown History oxycodone 5 mg tablet 5 mg PO Q6-8H PRN Pain 04/01/22 04/01/22 Unknown History pantoprazole 40 mg tablet,delayed 1 tab PO DAILY 04/01/22 04/01/22 Unknown History release torsemide 20 mg tablet 1 tab PO DAILY 04/01/22 04/01/22 Unknown History Physical Exam Vital Signs: Vital Signs: Last Vital Signs Temp 97 F 04/01/22 08:00 Pulse 99 04/01/22 08:00 Resp 18 04/01/22 08:00 BP 198/110 H 04/01/22 08:00 Pulse Ox 100 04/01/22 08:00 O2 Del Method 04/01/22 08:00 BMI result Body Mass Index 30.8 Neuro: Other: Alert and awake with normal sp speech, fluency, comprehension and affect. B/l blindness, face is symmetrical, no foal weakness, DTRs absent. Results Labs 03/31/22 18:42 03/31/22 18:42 Labs: Short CBC 03/31/22 Range/Units 18:42 WBC 8.3 (4.8-10.8) X10*3/uL Hgb 7.9 L (12.0-16.0) g/dl Hct 24.2 L (37.0-47.0) % Plt Count 214 (160-400) X10*3/uL BMP 03/31/22 18:42 Sodium 136 Potassium 3.7 Chloride 105 Carbon Dioxide 18 L BUN 42 H Creatinine 3.33 H Calcium 8.0 L D Liver Function 03/31/22 Range/Units 18:42 Total Bilirubin 1.0 (0.0-1.0) mg/dL AST 15 (5-31) U/L ALT 13 (0-31) U/L Alkaline Phosphatase 77 (39-117) U/L Albumin 3.0 L (3.5-5.0) g/dL MRI brain mild MVD Assessment and Plan (1) Transient cerebral ischemia: Status: Acute Severe uncontrolled HTN with DM and its multiple complications. No acute stroke. Rec: baby asp, BP control. Time Spent With Patient Time: Total time managing care of this patient today ____ minutes. Procedures Date of Service Date of Service: 04/01/22
[2022-04-01] MEDS: Labetalol HCL 100 MG/20 ML VIAL 10 MG IVPUSH ×2 (15:00→18:26)
--- NOTE | 2022-04-01 15:39 | MHC.CM.PN ---
[facility] DELIVERED PT DECLINED TO SIGN BUT ALLOWED CM TO EXPLAIN FORM. YELLOW COPY AT BEDISIDE, WHITE COPY TO CHART. LIVES WITH [place] IN AN APT. NO PRIOR SERVICES . NO DME. +HCP + COVID VAX X3 PCP AT [facility]. FAMILY TO TRANSPORT AT [place]. CM WILL CONTINUE TO FOLLOW.
[2022-04-01 17:21] LABS: Glucose, Whole Blood 99 mg/dL (60-115)
[2022-04-01] MEDS: ondansetron HCL 4 MG/2 ML VIAL IVPUSH (18:26)
[2022-04-01] MEDS: Omeprazole 20 MG CAPSULE.DR PO (18:34)
[2022-04-01 21:25] LABS: Glucose, Whole Blood 107 mg/dL (60-115)
[2022-04-02] VITALS (9 sets, daily range): BP systolic 138–212; BP diastolic 78–104; PULSE 85–99; RESP 14–19; TEMP 36.1–37.1; O2SAT 93–97
[2022-04-02] MEDS: Labetalol HCL 100 MG/20 ML VIAL 10 MG IVPUSH (01:30)
[2022-04-02] MEDS: Metoclopramide HCl 10 MG/2 ML VIAL IVPUSH (01:30)
--- NOTE | 2022-04-02 06:21 | PC.NURSE ---
2224: Notified MD of pt refusing BP meds and lantus [id number] Notified MD Pt vomiting 4x bile emesis stated zofran did not work and the abdominal pain was a burning pain ordered malox pt refused 0102 am Notified patient still vomiting green bile emesis dr ordered regalan with good effect.
[2022-04-02 07:54] LABS: Glucose, Whole Blood 68 mg/dL (60-115)
[2022-04-02] MEDS: 0.9 % Sodium Chloride Flush 3 ML SYRINGE IVFLUSH ×2 (08:49→15:43)
[2022-04-02 09:25] LABS: Appearance Urine Cloudy; Color Urine Yellow; Glucose Urine UA 250 mg/dL (Negative); Leukocyte Esterase Urine Negative (Negative); Nitrite Urine Negative (Negative); PH 6.5 (5.0-9.0); UMIC TRIGGER UACC YES; Urine Blood Trace (Negative); Urine Ketones Trace mg/dL (Negative); Urine Protein >=1000 (4+) mg/dL (Neg-Trace)
[2022-04-02 09:30] LABS: Bacteria Urine 4+ (None Seen); Hyaline Casts Urine 0-2 /LPF (0-2); RBC Urine 0-2 /HPF (0-2); Squamous Epithelial Cell Urine 0-2 /HPF (0-2); WBC Urine 0-5 /HPF (0-5)
[2022-04-02] MEDS: Torsemide 20 MG TABLET PO (09:37)
[2022-04-02] MEDS: Aspirin Enteric Coated 81 MG TABLET.DR 162 MG PO (09:37)
[2022-04-02] MEDS: amLODIPine Besylate 10 MG TABLET PO (09:37)
[2022-04-02] MEDS: carvediloL 25 MG TABLET PO ×2 (09:37→21:07)
[2022-04-02] MEDS: HYDROmorphone HCl 0.5 MG/0.5 ML SYRINGE IVPUSH ×3 (09:40→19:56)
--- NOTE | 2022-04-02 09:42 | P.PNIM_ITS ---
Subjective Subjective Date of Service: 04/02/22 Interval History: Follow up Left sided weakness More awake today but still with nausea, vomiting (mostly bile and mucous) and headache Review of Systems negative except interval history Physical Exam Vital Signs: Vital Signs: Last Vital Signs Temp 97.3 F 04/02/22 07:47 Pulse 99 04/02/22 07:47 Resp 19 04/02/22 07:47 BP 197/96 H 04/02/22 07:47 Pulse Ox 97 04/02/22 07:47 O2 Del Method 04/02/22 07:47 BMI result Body Mass Index 30.8 Appearing in no acute distress lung sounds are clear to auscultation heart regular rate rhythm, clear S1, S2 positive bowel sounds, abdomen is soft, nontender neuro patient is alert x3, no focal deficits Objective Data Active Medications Acetaminophen (Acetaminophen 325 Mg Tablet) 650 mg PO Q6H PRN PRN Reason: Pain, Mild (Pain Scale 1-3) Amlodipine Besylate (Amlodipine Besylate 10 Mg Tablet) 10 mg PO DAILY [facility]; Protocol Aspirin (Aspirin Enteric Coated 81 Mg Tablet.Dr) 162 mg PO DAILY [facility] Carvedilol (Carvedilol 25 Mg Tablet) 25 mg PO BID [facility]; Protocol Last Admin: 04/01/22 23:57 Dose: Not Given Documented By: AGGIE Non-Admin Reason: Patient Refused Dextrose (Dextrose 50 % 25 Gm/50 Ml Syringe) 25 gm IVPUSH Q15M PRN; Protocol PRN Reason: per Hypoglycemia Standing Ord. Enoxaparin Sodium (Enoxaparin Sodium 30 Mg/0.3 Ml Syringe) 30 mg SUBCUT Q24H [facility] Last Admin: 04/01/22 23:48 Dose: Not Given Documented By: AGGIE Non-Admin Reason: Patient Refused Famotidine (Famotidine/Pf 20 Mg/2 Ml Vial) 20 mg IVPUSH BID [facility] Glucose (Glucose Gel 15 Gm Gel..Gram.) 15 gm PO Q15M PRN; Protocol PRN Reason: per Hypoglycemia Standing Ord. Hydralazine HCl (Hydralazine Hcl 20 Mg/Ml Vial) 10 mg IVPUSH ONCE ONE; Protocol Stop: 04/02/22 09:43 Hydromorphone HCl (Hydromorphone Hcl 0.5 Mg/0.5 Ml Syringe) 0.5 mg IVPUSH Q4H PRN; Protocol PRN Reason: Pain, Mild (Pain Scale 1-3) Last Admin: 04/01/22 23:55 Dose: 0.5 mg Documented By: AGGIE Promethazine HCl 12.5 mg/ (Sodium Chloride) 50.5 mls @ 202 mls/hr IV Q6H PRN PRN Reason: Nausea and Vomiting Last Infusion: 04/02/22 09:07 Dose: 0 mls/hr Documented By: HERMINIO Insulin Glargine (Insulin Glargine,Hum.Rec.Anlog 100 Unit/Ml 10 Ml Vial) 14 unit SUBCUT BEDTIME [facility] Last Admin: 04/01/22 23:57 Dose: Not Given Documented By: AGGIE Non-Admin Reason: Patient Refused Insulin Human Lispro (Insulin Lispro 100 Unit/Ml 3 Ml Vial) 0 unit SUBCUT Q IDACHS [facility]; Protocol Last Admin: 04/02/22 07:57 Dose: Not Given Documented By: HERMINIO Non-Admin Reason: No Insulin Coverage Labetalol HCl (Labetalol Hcl 100 Mg/20 Ml Vial) 10 mg IVPUSH Q10M PRN PRN Reason: SBP >190 Last Admin: 04/01/22 18:26 Dose: 10 mg Documented By: HERMINIO Melatonin (Melatonin 3 Mg Tablet) 6 mg PO BEDTIME PRN PRN Reason: Insomnia Ondansetron HCl (Ondansetron Hcl 4 Mg/2 Ml Vial) 4 mg IVPUSH Q6H PRN PRN Reason: Nausea and Vomiting Last Admin: 04/01/22 18:26 Dose: 4 mg Documented By: HERMINIO Pharmacy Consult (Consult Rx Perform Med Rec) 1 each MISCELLANE ONCE PRN PRN Reason: Consult order Sodium Chloride (0.9 % Sodium Chloride Flush 3 Ml Syringe) 3 ml IVFLUSH QSHIFT [facility] Last Admin: 04/02/22 08:49 Dose: 3 ml Documented By: HERMINIO Torsemide (Torsemide 20 Mg Tablet) 20 mg PO DAILY [facility]; Protocol Labs 03/31/22 18:42 03/31/22 18:42 Labs: Laboratory Results - last 24 hr 04/01/22 04/01/22 04/01/22 12:01 17:18 21:18 POC Glucose 122 H 99 107 Urine Color Urine Appearance Urine pH Ur Specific [place] Urine Protein Urine Glucose (UA) Urine Ketones Urine Blood Urine Nitrite Ur Leukocyte Esterase Urine RBC Urine WBC Ur Squamous Epith Cells Urine Bacteria Hyaline Casts 04/02/22 04/02/22 07:47 09:00 POC Glucose 68 Urine Color Yellow Urine Appearance Cloudy Urine pH 6.5 Ur Specific [place] 1.020 Urine Protein >=1000 (4+) H Urine Glucose (UA) 250 H Urine Ketones Trace Urine Blood Trace H Urine Nitrite Negative Ur Leukocyte Esterase Negative Urine RBC 0-2 Urine WBC 0-5 Ur Squamous Epith Cells 0-2 Urine Bacteria 4+ Hyaline Casts 0-2 Assessment and Plan (1) Sepsis: Plan 31-year-old female with a PMH significant for?HTN, HFrEF, CKD stage 3, insulin- dependent diabetes, diabetic neuropathy legally blind, s/p right TMA, multiple left toe amputations, and hx of right foot osteomyelitis who presents to the ED with?right-sided numbness and weakness. Pt will be admitted to the hospital to observation on telemetry for treatment and further evaluation for possible TIA. HTN urgency very difficult to control BP patient states compliance at home hx of normal renal doppler us labetolol not helping give one dose hydralazine now amlodipine increased to 10 mg daily, continue coreg, torsemide discussed with ICU attending, If no improvement in BP, may need to transfer to ICU for nicard drip Headache, backache Pt denies fall, was sitting in car at time of incident CT of head clear for hemorrhage Pain management Right-sided numbness and weakness, concerning for CVA. negative CT with no evidence of acute territorial infarct or hemorrhage Carotid ultrasound showing >50% stenosis bilaterally MRI neg Lipid panel LDL 69, HDL 34 Neurology consult rec Better BP controll Monitor on telemetry Nausea, vomiting seems likely secondary to uncontrolled BP Ondansetron, phenergan prn CKD stage 3 Creatinine 3.33, at baseline Patient received 1 L of IVF ED Monitor Hx of HFrEF Not in acute exacerbation Continue furosemide Mood disorder Continue home meds Insulin-dependent DM, uncontrolled Hold home meds SSI, lantus Normocytic anemia Stable, at baseline Likely secondary to renal disease Pt has refused PRBC transfusion and procrit in the past Full Code Attending:?Dr. Shepherd DVT Prophylaxis: Lovenox Pt will be admitted to the hospital to observation on telemetry for treatment and further evaluation for possible TIA. Time Spent With Patient Time: Total time managing care of this patient today ____ minutes. Quality Stroke Does the patient have a stroke diagnosis?: No Reason for No Anti-thrombotic by Day Two: N/A - Med Ordered (Pt given aspirin) VTE Prior VTE?: No VTE Risk Level:: Medical - moderate - high VTE Device Contraindication: Treatment Not Indicated VTE Drug Contraindication: N/A - Med Ordered
[2022-04-02] MEDS: hydrALAZINE HCl 20 MG/ML VIAL 10 MG IVPUSH (10:55)
[2022-04-02] MEDS: Famotidine/PF 20 MG/2 ML VIAL 10 MG IVPUSH (10:55)
[2022-04-02 11:30] LABS: Glucose, Whole Blood 86 mg/dL (60-115)
--- NOTE | 2022-04-02 16:08 | MHC.CM.PN ---
IMM DELIVERED. PT DECLINED TO SIGN TOO SICK RIGHTS EXPLAINED, WHITE COPY AT BEDSIDE, YELLOW COPY TO CHART.
[2022-04-02 16:27] LABS: Glucose, Whole Blood 112 mg/dL (60-115)
[2022-04-02 20:40] LABS: Glucose, Whole Blood 136 mg/dL (60-115)
[2022-04-02] MEDS: hydrALAZINE HCl 10 MG TABLET PO (21:06)
[2022-04-03] MEDS: HYDROmorphone HCl 0.5 MG/0.5 ML SYRINGE IVPUSH ×2 (02:44→08:37)
[2022-04-03 04:00] VITALS: BP 144/80; PULSE 85; RESP 15; TEMP 36.2; O2SAT 96
[2022-04-03 07:15] VITALS: BP 173/90; PULSE 86; RESP 20; TEMP 36.6; O2SAT 95
[2022-04-03 08:11] LABS: Glucose, Whole Blood 145 mg/dL (60-115)
[2022-04-03] MEDS: carvediloL 25 MG TABLET PO (08:32)
[2022-04-03] MEDS: amLODIPine Besylate 10 MG TABLET PO (08:33)
[2022-04-03] MEDS: Torsemide 20 MG TABLET PO (08:33)
[2022-04-03] MEDS: Aspirin Enteric Coated 81 MG TABLET.DR 162 MG PO (08:33)
[2022-04-03] MEDS: Famotidine/PF 20 MG/2 ML VIAL 10 MG IVPUSH (08:37)
[2022-04-03] MEDS: 0.9 % Sodium Chloride Flush 3 ML SYRINGE IVFLUSH (08:43)
[2022-04-03] MEDS: hydrALAZINE HCl 10 MG TABLET PO ×2 (08:45→14:44)
[2022-04-03] MEDS: Butalb/Acetamin/Caff 50/325/40 TABLET 1 TAB PO ×2 (08:48→13:47)
--- NOTE | 2022-04-03 11:30 | PM.DS ---
DS: Providers Provider Date of Service: 04/03/22 Date of admission: 03/31/22 22:17 Primary care physician: Unknown Physician Consults: 03/31/22 22:17 Consult to Neurology Routine Consulting Provider: [facility] Reason for consultation: Stroke Attending physician on discharge: Efraín Weeks Discharging clinician: Tawny Taylor DS: Diagnosis Discharge Diagnosis (1) Sepsis: DS: Summary Hospital Course Hospital Course: HP as per admitting provider Pt is a 31-year-old female with a PMH significant for?HTN, HFrEF, CKD stage 3, insulin-dependent diabetes, diabetic neuropathy legally blind, s/p right TMA, multiple left toe amputations, and hx of right foot osteomyelitis who presents to the ED with?right-sided numbness and weakness. Full HPI difficult to obtain d/t pt's inability to recall event in question. Pt states she was sitting in the car with her nephews this afternoon when she suddenly had a headache and back ache. Headache was sharp, throbbing, and on both sides. Back ache was in the center and ran the full length of her spine. Pt doesn't remember her nephews calling EMS, but remembers being in the ambulance. She feels like her whole face is numb and had one episode of nausea and vomiting in the ED, but denies any other symptoms. No chest pain/pressure, palpitations. No SOB. Denies abdominal pain, changes in bowel or bladder habits.?In the ED patient was afebrile and mildly hypertensive. Labs were significant for H&H of 7.9/24.2 (stable, at baseline), creatinine of 3.33 (near new baseline established in 12/2021). CT?of head showed new finding of subtle hyperattenuation along the posterior globe contours possibly suggestive retinal hemorrhage or detachment; otherwise no other evidence of acute territorial infarct or hemorrhage. EKG demonstrated normal sinus rhythm with a right bundle torsten block with no evidence of ST elevations or depressions. Pt was treated with aspirin, IV fluids, hydromorphone, ondansetron. Pt will be admitted to the hospital to observation on telemetry for treatment and further evaluation for possible TIA . HTN urgency. Better very difficult to control BP initially patient states compliance at home, but unsire if this is accurate hx of normal renal doppler us, no renal artery stenosis amlodipine increased to 10 mg daily, continue coreg, torsemide and hydralazine added BID Headache, backache Pt denies fall, was sitting in car at time of incident CT of head clear for hemorrhage MRI normal Fiorcet for migraine, few days of oxycodone ice packs for comfort Right-sided numbness and weakness, concerning for CVA. negative CT with no evidence of acute territorial infarct or hemorrhage Carotid ultrasound showing >50% stenosis bilaterally MRI neg Lipid panel LDL 69, HDL 34 Neurology consult rec Better BP control Nausea, vomiting. Resolved seems likely secondary to uncontrolled BP Treated with Ondansetron and phenergan prn CKD stage 3 Creatinine 3.33, at baseline Patient received 1 L of IVF ED Hx of HFrEF Not in acute exacerbation Continue furosemide Mood disorder Continue home meds Insulin-dependent DM, uncontrolled continue home medications A1C 6 Normocytic anemia Stable, at baseline Likely secondary to renal disease Pt has refused PRBC transfusion and procrit in the past Time Spent with Patient Time attestation: Total time managing care of this patient today ____ minutes. Discharge coordination time: Greater than 30 minutes Quality: Safe Use of Opioids Does Pt have an Active Cancer Diagnosis on the Problem List?: No Quality: Stroke Does the patient have a stroke diagnosis?: No Physical Exam Vital Signs: Vital Signs: Last Vital Signs Temp 97.9 F 04/03/22 07:15 Pulse 86 04/03/22 07:15 Resp 20 04/03/22 07:15 BP 173/90 H 04/03/22 07:15 Pulse Ox 95 04/03/22 07:15 O2 Del Method 04/03/22 07:15 BMI result Body Mass Index 30.8 Appearing in no acute distress, legally blind head is normocephalic atraumatic eyes pupils are PERRLA sclera is anicteric mouth throat mucous membranes are intact and moist neck is supple no lymphadenopathy, no JVD noted lung sounds are clear to auscultation heart regular rate rhythm, clear S1, S2 positive bowel sounds, abdomen is soft, nontender neuro patient is alert x3, no focal deficits DS: Data Data Completed and Pending Completed studies during hospitalization [Text1]: Procedures Detachment at Right Foot, Partial 1st Ray, Open Approach (03/01/20) Detachment at Right Foot, Partial 2nd Ray, Open Approach (03/01/20) Detachment at Right Foot, Partial 3rd Ray, Open Approach (03/01/20) Detachment at Right Foot, Partial 4th Ray, Open Approach (03/01/20) Detachment at Right Foot, Partial 5th Ray, Open Approach (03/01/20) Drainage of Right Pleural Cavity, Percutaneous Approach (01/14/21) Insertion of Infusion Device into Superior Vena Cava, Percutaneous Approach (01/14/21) Removal of Infusion Device from Great Vessel, External Approach (01/14/21) Labs on day of discharge: Laboratory Results - last 24 hr 04/02/22 04/02/22 04/02/22 11:18 16:23 20:36 POC Glucose 86 112 136 H 04/03/22 07:17 POC Glucose 145 H Discharge Plan Discharge Anticipated Discharge Date/Time: 04/03/22 11:28 Patient Disposition: Home, Self-Care Discharge Diagnosis: Hypertensive urgency Headache Nausea, vomiting Discharge Medications: New hydralazine 10 mg Tablet 10 mg PO BID Qty: 60 0RF Protocol: Hold for SBP< HOLD for SBP < : 90 amlodipine 10 mg Tablet 10 mg PO DAILY Qty: 30 0RF Protocol: Hold for SBP< HOLD for SBP < : 90 saexyrbjck-bwstvvozoeouh-xjgb 50-325-40 mg Tablet 1 tab PO Q4H PRN (Reason: headache ) Qty: 18 0RF Continued nifedipine 30 mg tablet extended release 24hr 1 tab PO DAILY acetaminophen 325 mg tablet 325 mg PO NEEDED torsemide 20 mg tablet 1 tab PO DAILY ondansetron HCl 4 mg tablet 1 tab PO Q8H PRN (Reason: nausea/vomiting) aspirin 81 mg tablet,delayed release (DR/EC) 2 tab PO DAILY metoclopramide HCl 5 mg tablet 1 tab PO Q6H PRN (Reason: nausea/vomiting) pantoprazole 40 mg tablet,delayed release (DR/EC) 1 tab PO DAILY oxycodone 5 mg tablet 5 mg PO Q6-8H PRN (Reason: Pain) Levemir FlexTouch U-100 Insuln 100 unit/mL (3 mL) insulin pen 8 unit subcut BEDTIME diclofenac sodium 1 % gel 1 applic topical QID Levemir FlexTouch U-100 Insuln 100 unit/mL (3 mL) insulin pen 20 unit subcut DAILY Qty: 0 0RF Discontinued carvedilol 12.5 mg tablet 1 tab PO BID amlodipine 5 mg tablet 1 tab PO DAILY Discharge Orders: Discharge Order (Routine); Ordered 04/03/22 Ordered By: Tawny Taylor Diet: Advance to usual diet Activity on Discharge: As tolerated Stand Alone Forms: Patient Portal Discharge page Care Plan Goals: Complete resolution of symptoms Health Concerns: Hypertensive urgency Headache Nausea, vomiting Plan of Treatment: Follow-up with primary care provider as needed Take all medications as prescribed Assessment: See discharge summary
[2022-04-03 11:37] VITALS: BP 169/92; PULSE 80; RESP 20; TEMP 36.2; O2SAT 98
[2022-04-03 11:49] LABS: Glucose, Whole Blood 135 mg/dL (60-115)
--- NOTE | 2022-04-03 12:56 | P.PNIM_ITS ---
Subjective Subjective Date of Service: 04/03/22 Interval History: Follow up headache nausea and vomiting resolved still with mild headache Review of Systems negative except interval history Physical Exam Vital Signs: Vital Signs: Last Vital Signs Temp 97.2 F 04/03/22 11:37 Pulse 80 04/03/22 11:37 Resp 20 04/03/22 11:37 BP 169/92 H 04/03/22 11:37 Pulse Ox 98 04/03/22 11:37 O2 Del Method 04/03/22 11:37 BMI result Body Mass Index 30.8 Appearing in no acute distress lung sounds are clear to auscultation heart regular rate rhythm, clear S1, S2 positive bowel sounds, abdomen is soft, nontender neuro patient is alert x3, no focal deficits Objective Data Active Medications Acetaminophen (Acetaminophen 325 Mg Tablet) 650 mg PO Q6H PRN PRN Reason: Pain, Mild (Pain Scale 1-3) Acetaminophen/Butalbital/Caffeine (Butalb/Acetamin/Caff 50/325/40 Tablet) 1 tab PO Q4H PRN PRN Reason: headache Last Admin: 04/03/22 08:48 Dose: 1 tab Documented By: LARRY Amlodipine Besylate (Amlodipine Besylate 10 Mg Tablet) 10 mg PO DAILY [facility]; Protocol Last Admin: 04/03/22 08:33 Dose: 10 mg Documented By: LARRY Aspirin (Aspirin Enteric Coated 81 Mg Tablet.) 162 mg PO DAILY [facility] Last Admin: 04/03/22 08:33 Dose: 162 mg Documented By: LARRY Carvedilol (Carvedilol 25 Mg Tablet) 25 mg PO BID [facility]; Protocol Last Admin: 04/03/22 08:32 Dose: 25 mg Documented By: LARRY Dextrose (Dextrose 50 % 25 Gm/50 Ml Syringe) 25 gm IVPUSH Q15M PRN; Protocol PRN Reason: per Hypoglycemia Standing Ord. Enoxaparin Sodium (Enoxaparin Sodium 30 Mg/0.3 Ml Syringe) 30 mg SUBCUT Q24H [facility] Last Admin: 04/02/22 21:29 Dose: Not Given Documented By: EVETTE Non-Admin Reason: Patient Refused Famotidine (Famotidine/Pf 20 Mg/2 Ml Vial) 10 mg IVPUSH DAILY [facility] Last Admin: 04/03/22 08:37 Dose: 10 mg Documented By: LARRY Glucose (Glucose Gel 15 Gm Gel..Gram.) 15 gm PO Q15M PRN; Protocol PRN Reason: per Hypoglycemia Standing Ord. Hydralazine HCl (Hydralazine Hcl 20 Mg/Ml Vial) 10 mg IVPUSH Q6H PRN; Protocol PRN Reason: SBP >180 Hydralazine HCl (Hydralazine Hcl 10 Mg Tablet) 10 mg PO BID [facility]; Protocol Last Admin: 04/03/22 08:45 Dose: 10 mg Documented By: LARRY Promethazine HCl 12.5 mg/ (Sodium Chloride) 50.5 mls @ 202 mls/hr IV Q6H PRN PRN Reason: Nausea and Vomiting Last Infusion: 04/02/22 21:20 Dose: 0 mls/hr Documented By: EVETTE Insulin Glargine (Insulin Glargine,Hum.Rec.Anlog 100 Unit/Ml 10 Ml Vial) 14 unit SUBCUT BEDTIME [facility] Last Admin: 04/02/22 21:28 Dose: Not Given Documented By: EVETTE Non-Admin Reason: Patient Refused Insulin Human Lispro (Insulin Lispro 100 Unit/Ml 3 Ml Vial) 0 unit SUBCUT QIDAS [facility]; Protocol Last Admin: 04/03/22 11:52 Dose: Not Given Documented By: LARRY Non-Admin Reason: No Insulin Coverage Labetalol HCl (Labetalol Hcl 100 Mg/20 Ml Vial) 10 mg IVPUSH Q10M PRN PRN Reason: SBP >190 Last Admin: 04/01/22 18:26 Dose: 10 mg Documented By: HERMINIO Melatonin (Melatonin 3 Mg Tablet) 6 mg PO BEDTIME PRN PRN Reason: Insomnia Ondansetron HCl (Ondansetron Hcl 4 Mg/2 Ml Vial) 4 mg IVPUSH Q6H PRN PRN Reason: Nausea and Vomiting Last Admin: 04/01/22 18:26 Dose: 4 mg Documented By: HERMINIO Pharmacy Consult (Consult Rx Perform Med Rec) 1 each MISCELLANE ONCE PRN PRN Reason: Consult order Sodium Chloride (0.9 % Sodium Chloride Flush 3 Ml Syringe) [facility] Last Admin: 04/03/22 08:43 Dose: 3 ml Documented By: LARRY Torsemide (Torsemide 20 Mg Tablet) 20 mg PO DAILY [facility]; Protocol Last Admin: 04/03/22 08:33 Dose: 20 mg Documented By: LARRY Labs 03/31/22 18:42 03/31/22 18:42 Labs: Laboratory Results - last 24 hr 04/02/22 04/02/22 04/03/22 16:23 20:36 07:17 POC Glucose 112 136 H 145 H 04/03/22 11:39 POC Glucose 135 H Assessment and Plan (1) Sepsis: Plan 31-year-old female with a PMH significant for?HTN, HFrEF, CKD stage 3, insulin- dependent diabetes, diabetic neuropathy legally blind, s/p right TMA, multiple left toe amputations, and hx of right foot osteomyelitis who presents to the ED with?right-sided numbness and weakness. Pt will be admitted to the hospital to observation on telemetry for treatment and further evaluation for possible TIA. HTN urgency. Better today patient states compliance at home hx of normal renal doppler us amlodipine increased to 10 mg daily, continue coreg, torsemide added hydralazine BID, till change to TID Headache, backache Pt denies fall, was sitting in car at time of incident CT of head clear for hemorrhage Fiorcet as needed restart home oxycodone Right-sided numbness and weakness, concerning for CVA. negative CT with no evidence of acute territorial infarct or hemorrhage Carotid ultrasound showing >50% stenosis bilaterally MRI neg Lipid panel LDL 69, HDL 34 Neurology consult rec Better BP controll Monitor on telemetry Nausea, vomiting. Resolved seems likely secondary to uncontrolled BP Ondansetron, phenergan prn CKD stage 3 Creatinine 3.33, at baseline Patient received 1 L of IVF ED Monitor Hx of HFrEF Not in acute exacerbation Continue furosemide Mood disorder Continue home meds Insulin-dependent DM, uncontrolled Hold home meds SSI, lantus Normocytic anemia Stable, at baseline Likely secondary to renal disease Pt has refused PRBC transfusion and procrit in the past Full Code Attending:?Dr. Weeks DVT Prophylaxis: Lovenox Pt will be admitted to the hospital to observation on telemetry for treatment and further evaluation for possible TIA. Time Spent With Patient Time: Total time managing care of this patient today ____ minutes. Quality Stroke Does the patient have a stroke diagnosis?: No Reason for No Anti-thrombotic by Day Two: N/A - Med Ordered (Pt given aspirin) VTE Prior VTE?: No VTE Risk Level:: Medical - moderate - high VTE Device Contraindication: Treatment Not Indicated VTE Drug Contraindication: N/A - Med Ordered
[2022-04-03] MEDS: oxyCODONE HCl Immed Release 5 MG TABLET PO (13:47)
--- NOTE | 2022-04-03 14:30 | MHC.CM.PN ---
Per MD rounds,Patient was planned for discharge today. The discharge is on hold. Patient requires observation for TELE and possible TIA.
[2022-04-03 15:29] VITALS: BP 139/87; PULSE 83; TEMP 36.2; O2SAT 93
--- NOTE | 2022-04-03 15:41 | MHC.SL.SWA ---
Speech Pathologist Impression: Pharyngeal phase dysphagia Risk of Aspiration Due to: Neurological Condition Dysphasia Diet Status: No Change Liquid Consistency and Strategies for Safe Swallow: Liquid Intake Recommendation: Thin Liquid Intake Strategies: Small Sips Solid Food Consistency: Dietary Recommendations: Regular Additional Modifications to Solid Foods: Pt seen for bedside dysphagia evaluation this afternoon. Pt consumed dry alessio crackers and thin liquid. Pt's oral phase was unremarkable, complete oral clearance. Swallow was timely, with no overt s/s of aspiration. Pt reported globus sensation with solids only and throat pain when swallowing which she rated 9/10. Pt would benefit from further assessment with MBSS if her symptoms persist. Oral Medication Intake: Whole with Liquid Please contact the pharmacy regarding appropriate crushable or liquid drug formulations that are available whenever modified delivery is recommended. Compensatory Strategies and Precautions to be Taken for Safe Swallow: Sitting Upright (90 deg) Small Bites and Sips Alternate Liquids/Solids Rate of Ingestion Change Supervision While Eating and Drinking for Safe Swallow: None Needed Swallowing Recommended Treatments: Compens. Strategy Educat. Recommendation for Speech: Inpatient Speech Therapy Modified Barium Swallow Study - Inpatient Modified Barium Swallow Study - Outpatient Stringed Instrument Repairer Clinican/Clinical Fellow: No Supervisory Statement: I have reviewed and agree with the student/clinical fellow's documentation: N/A Speech Language Pathologist: Jesi Montez M.A., CCC-CABLE PLACER
[2022-04-03 15:58] LABS: Glucose, Whole Blood 140 mg/dL (60-115)
--- NOTE | 2022-04-06 07:02 | P.CDIR_ITS ---
Documented by User: Latoya Hooker RN 04/06/22 07:07 Retrospective Query PHYSICIAN'S DOCUMENTATION REQUEST Date of Query: 04/06/22 0703 Patient Name: Shereen Taylor Admit Date: 03/31/22 Dear Doctor, A review of the medical record indicates additional documentation may be needed. Please review below and update the documentation accordingly. Clinical Indicators: The diagnosis of TIA was documented on 04/01/22 but is not consistently noted in subsequent documentation. Risk Factors/Clinical Indicators/Treatments per Neurology consult 04/01/22: Assessment and Plan (1) Transient cerebral ischemia: ?Status:?Acute Severe uncontrolled HTN with DM and its multiple complications. No acute stroke. Rec: baby asp, BP control. Per Discharge Summary 04/03/22: Right-sided numbness and weakness, concerning for CVA. negative CT with no evidence of acute territorial infarct or hemorrhage Carotid ultrasound showing >50% stenosis bilaterally MRI neg Lipid panel LDL 69, HDL 34 Neurology consult rec Better BP control TIA was not noted in the Discharge Summary Please clarify the following: * TIA was present on admission and is now resolved * TIA was ruled out * TIA is still a likely, suspected, probable diagnosis * Other (please specify) * Unable to determine Use of terms such as suspected, likely, concern for, or probable (associated with a specific diagnosis that is being evaluated, monitored, or treated as if it exists) are acceptable and can be coded in the inpatient setting, when documented at the time of discharge. Thank you, Latoya Hooker RN Extension: [phone] Please use your independent medical judgment in providing your response. THIS QUERY IS PART OF THE PERMANENT MEDICAL RECORD Documented by User: Tawny Taylor NP 04/10/22 08:10 Retrospective Query Provider Response: Other (not diagnosed)
--- NOTE | 2022-04-23 09:05 | MHC.CM.PN ---
CM has attempted X2 to speak with Patient, who remains with Back Turned and sheet up very close to her head despite CM calling out her name. IMM left at bedside to Patient's review and a copy placed on the chart. 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 Home/resume said services is the tentative plan and CM has initiated and will follow for dc planning. Patient has received Moderna/covid vax x3 and her PCP is Dr. Beard from [facility].
== END 2022-04-03 17:45 | disposition home or self-care (01) | DRG 305 ==
LOC: HO.ED 18:17 → HO.EDOVER 04-01 01:12 → HO.IMC 04-01 03:36 → HO.EDOVER 06-20 07:50 → HO.IMC 06-20 07:50
PROVIDERS: Admitting Provider Student in an Organized Health Care Education/Training Program; Emergency Provider Internal Medicine; PCP Internal Medicine; Visit Provider Nurse Practitioner Acute Care
DX: I16.0 Hypertensive urgency (principal); G81.91 Hemiplegia, unspecified affecting right dominant side; I50.22 Chronic systolic (congestive) heart failure; I13.0 Hypertensive heart and chronic kidney disease with heart failure and stage 1 through stage 4 chronic kidney disease, or unspecified chronic kidney disease; N18.30 Chronic kidney disease, stage 3 unspecified; E11.40 Type 2 diabetes mellitus with diabetic neuropathy, unspecified; E11.22 Type 2 diabetes mellitus with diabetic chronic kidney disease; H54.8 Legal blindness, as defined in USA; R20.0 Anesthesia of skin; F39 Unspecified mood [affective] disorder; D63.1 Anemia in chronic kidney disease; G43.909 Migraine, unspecified, not intractable, without status migrainosus; I65.23 Occlusion and stenosis of bilateral carotid arteries; Z79.4 Long term (current) use of insulin; Z79.82 Long term (current) use of aspirin; Z79.899 Other long term (current) drug therapy
CPT/HCPCS: 36415; 70450; 70551; 74176; 80053; 80061; 81001; 82947; 83036; 83735; 85025; 85610; 87635; 92610; 93005; 93880; 99285; J1170; J1650; J2405; J2550; J2765

== ENCOUNTER 2022-04-22 01:59 | Inpatient (IN) | payer OTHER, SELFPAY ==
[2022-04-22] VITALS (15 sets, daily range): BP systolic 147–200; BP diastolic 75–112; PULSE 91–116; RESP 16–30; TEMP 37–37.4; O2SAT 92–100; BMI 24.2
--- NOTE | ~2022-04-22 | XR_ITS ---
EXAMINATION: XR CHEST CLINICAL INFORMATION: Shortness of breath COMPARISON: 01/05/2022 TECHNIQUE: Frontal view of the chest was obtained. FINDINGS: Lungs are mildly hypoinflated. No focal consolidation is seen. Central vasculature appears mildly prominent. No evidence of pneumothorax or significant pleural effusion, though small pleural effusions are difficult to exclude without a lateral view. Cardiac silhouette appears at the upper limits of normal in size. No acute osseous findings are seen. XR/XR chest 1V IMPRESSION: Mildly prominent central vasculature which may reflect congestion in the proper clinical setting.
--- NOTE | 2022-04-22 02:15 | ECG_ITS ---
Test Reason : CP Blood Pressure : / mmHG Vent. Rate : 107 BPM Atrial Rate : 107 BPM P-R Int : 144 ms QRS Dur : 126 ms QT Int : 382 ms P-R-T Axes : 078 026 065 degrees QTc Int : 509 ms Sinus tachycardia Possible Left atrial enlargement Right bundle branch block Abnormal ECG When compared with ECG of 31-MAR-2022 18:25, Questionable change in QRS axis Referred By: Generic ED Physician Electronically Signed By:JASKARAN COOL
[2022-04-22 02:41] LABS: Basophils Percent Auto 0.5 % (0-2); Eosinophils Absolute Auto 0.2 X10*3/uL (0.0-0.4); Eosinophils Percent Auto 3.7 % (0-4); Imm Gran Abs Auto 0.02 X10*3/uL (0.00-0.03); Imm Gran Pct Auto 0.3 % (0.0-0.4); Lymphocytes Absolute Auto 0.4 X10*3/uL (1.2-4.9); Lymphocytes Percent Auto 6.6 % (20-40); MANUAL DIFF FLAG NO; Mean Corpuscular HGB Conc 31.9 g/dl (31.0-35.0); Mean Corpuscular Hemoglobin 27.2 pg (27.0-33.0); Mean Corpuscular Volume 85.2 fL (80.0-98.0); Monocytes Absolute Auto 0.4 X10*3/uL (0.1-1.2); Monocytes Percent Auto 6.6 % (2-11); Neutrophils Absolute Auto 5.3 x10*3/uL (2.0-8.3); Neutrophils Percent Auto 82.3 % (45-73); Platelet Count 225 X10*3/uL (160-400); Red Blood Count 2.43 X10*6/uL (4.20-5.50); Red Cell Distribution Width 16.3 % (11.0-16.0); White Blood Count 6.5 X10*3/uL (4.8-10.8)
[2022-04-22 02:47] LABS: Hematocrit 20.7 % (37.0-47.0); Hemoglobin 6.6 g/dl (12.0-16.0)
--- NOTE | 2022-04-22 03:02 | ED.CHESTPAIN ---
HPI - Chest Pain General Chief Complaint: Chest Pain Stated Complaint: cough Time Seen by Provider: 04/22/22 02:53 Source: patient and EMS Mode of arrival: EMS Limitations: no limitations History of Present Illness HPI narrative: Patient comes in the emergency room complaining of cough and chest pain for 3 days. Patient states that she thinks she has fluid in her lungs. Patient has history of CHF, states that she has been diagnosed with fluid in her lungs before. Patient requesting pain medication. Related Data Home Medications Medication Instructions Recorded Confirmed acetaminophen 325 mg tablet 325 mg PO NEEDED 04/01/22 04/01/22 aspirin 81 mg tablet,delayed 2 tab PO DAILY 04/01/22 04/01/22 release diclofenac sodium 1 % topical gel 1 applic topical QID 04/01/22 04/01/22 insulin detemir U-100 100 unit/mL 8 unit subcut BEDTIME 04/01/22 04/01/22 (3 mL) subcutaneous pen (Levemir FlexTouch U-100 Insulin) metoclopramide HCl 5 mg tablet 1 tab PO Q6H PRN nausea/vomiting 04/01/22 04/01/22 nifedipine 30 mg tablet,extended 1 tab PO DAILY 04/01/22 04/01/22 release 24 hr ondansetron HCl 4 mg tablet 1 tab PO Q8H PRN nausea/vomiting 04/01/22 04/01/22 oxycodone 5 mg tablet 5 mg PO Q6-8H PRN Pain 04/01/22 04/01/22 pantoprazole 40 mg tablet,delayed 1 tab PO DAILY 04/01/22 04/01/22 release torsemide 20 mg tablet 1 tab PO DAILY 04/01/22 04/01/22 Previous Rx's Medication Instructions Recorded insulin detemir U-100 100 unit/mL 20 unit (0.2 mL) subcut DAILY #0 mL 12/11/20 (3 mL) subcutaneous pen (Levemir FlexTouch U-100 Insulin) amlodipine 10 mg tablet 10 mg PO DAILY #30 tabs 04/03/22 xxcldxcmjg-vrjgwgvuusqxn-wiohdywg 1 tab PO Q4H PRN headache #18 tabs 04/03/22 50 mg-325 mg-40 mg tablet hydralazine 10 mg tablet 10 mg PO BID #60 tabs 04/03/22 Allergies Allergy/AdvReac Type Severity Reaction Status Date / Time morphine [MORPHINE] Allergy Intermediate Itching Verified 04/22/22 03:18 azithromycin [From Zithromax] Allergy Hives Verified 04/22/22 03:18 gabapentin Allergy Facial Verified 04/22/22 03:19 Swelling tramadol Allergy Facial Verified 04/22/22 03:19 Swelling vancomycin Allergy Hives Verified 04/22/22 03:18 Review of Systems Review of Systems: Constitutional : No Weight loss, No Fever, No Chills, No Night Sweats, complaining of fatigue and generalized malaise ENT/Mouth : No Hearing loss, No Ear Pain, No Nasal Congestion, No Sinus Pain, No Hoarseness, No sore throat, No Rhinorrhea, No Swallowing Difficulty Eyes: No Eye Pain, No Swelling, No Redness, No Foreign Body, No Discharge, No Vision Changes Cardiovascular : Complaining of chest pain with coughing, mild shortness of breath Respiratory : Complaining of cough for 3 days, chest pain with coughing Gastrointestinal : Playing of nausea and vomiting, No Diarrhea, No Constipation, No abdominal Pain, No Hematochezia, No Melena Genitourinary : no irregular bleeding, No Dysuria, No Urinary Frequency, No Hematuria, No Urinary Incontinence, No Urgency, No Flank Pain, No Urinary Flow Changes, No Hesitancy Musculoskeletal : No joint pain, No Myalgias, No Joint Swelling Skin : No Skin Lesions, No rash Neuro : No Weakness, No Numbness, No Paresthesias, No Loss of Consciousness, No Dizziness, No Headache Psych : No Anxiety/Panic, No Depression, No SI/HI/AH/VH, No Social Issues, Heme/Lymph: No Bruising, No Bleeding,No Lymphadenopathy Endocrine : No Polyuria, No Polydipsia, No Temperature Intolerance FOR[facility]LY [facility], [facility] Past Medical History Medical History Abnormal finding on echocardiogram Acute dyspnea Acute worsening of stage 3 chronic kidney disease MYNOR (acute kidney injury) Asthma Back pain Blind right eye Bone infection Cellulitis Cellulitis and abscess of foot Chest pain CHF (congestive heart failure) Depression with anxiety Diabetes Diabetic retinopathy DM foot ulcer Elevated troponin Essential hypertension Fever Generalized edema HTN (hypertension) Migraine Osteomyelitis PAD (peripheral artery disease) Pleural effusion test positive test positive Sepsis Severe anemia Tachycardia Type 2 diabetes mellitus with hyperglycemia, with long-term current use of insulin Surgical History History of transmetatarsal amputation of foot S/P transmetatarsal amputation of foot Family History Family History Mother Coronary artery disease Myocardial infarction Stroke Diabetes mellitus Father Myocardial infarction Social History Social History Household Members: Significant Other Household Members Other:: Sister, [id number], nephew Housing: Apartment Do you presently have visiting nurse or other home services: Yes ([employer] services) Alcohol intake: never Patient Tobacco Use Status: Never used Tobacco Smoked in Last 30 Days: No e-Cigarette/Vaping Use: Never Used Second Hand Smoke Exposure: No Use of substances other than those prescribed or required for medical reasons: No Advance Directives: No Advance Directives Information Provided: No Advance Directives Date on File: 03/08/20 Patient : No service: No Current occupational status: unemployed and disabled Gender identity: Female Physical Exam Vital Signs: Vital Signs: Last Vital Signs Temp 99.1 F 04/22/22 04:37 Pulse 98 04/22/22 04:37 Resp 28 H 04/22/22 04:37 BP 173/101 H 04/22/22 04:37 Pulse Ox 96 04/22/22 04:37 O2 Del Method 04/22/22 04:37 O2 Flow Rate 2 04/22/22 04:37 BMI result Body Mass Index 24.2 Course Course Course Narrative: -chest x-ray pending -blood pressure 193/99. I reviewed patient's inpatient records, the last time that she was seen here the 1st week of March of 2022, the Medicine Team had a difficult time controlling the patient's blood pressure. Patient was given amlodipine, torsemide, Coreg, hydralazine -patient's hemoglobin today is 6.6, hematocrit 20.7. Patient nice any vaginal or rectal bleeding. Patient has history of anemia. Also, on patient's last admission of March 2022, patient's hemoglobin was about the same level, but patient refused blood transfusion. Today, patient is agreeable to blood transfusion -patient is legally blind, patient states that she cannot see where to sign in is requesting that we go ahead and give a blood transfusion. Patient's nurse witnessed that the patient requested to go ahead with the transfusion without signing due to her incapability of signing Medications Administered Discontinued Medications Generic Name Dose Route Start Last Admin Trade Name Brandon PRN Reason Stop Dose Admin Hydromorphone HCl 1 mg 04/22/22 03:27 04/22/22 03:40 Hydromorphone Hcl 1 Mg/Ml Syringe IVPUSH 04/22/22 03:28 1 mg ONCE ONE Administration Protocol Morphine Sulfate 4 mg 04/22/22 03:03 04/22/22 03:35 Morphine Sulfate 4 Mg/Ml Cartridge IVPUSH 04/22/22 03:04 Not Given ONCE ONE Protocol Ondansetron HCl 4 mg 04/22/22 03:03 04/22/22 03:13 Ondansetron Hcl 4 Mg/2 Ml Vial IVPUSH 04/22/22 03:04 4 mg ONCE ONE Administration Prochlorperazine Edisylate 10 mg 04/22/22 03:31 04/22/22 03:40 Prochlorperazine Edisylate 10 Mg/2 Ml Vial IVPUSH 04/22/22 03:32 10 mg ONCE ONE Administration Medical Decision Making Medical Decision Making MDM Narrative: -patient's BNP is pending. Our chemistry analyzer is down. -chest x-ray shows mild vascular congestion. -without oxygen, patient's oxygen saturation drops to 86%. -patient is almost done with her unit of blood, patient getting Lasix 20 mg. I discussed the patient with Dr. Lopez, patient admitted Differential Diagnosis Differential Diagnoses: The differential diagnosis associated with the presentation includes (Pneumonia, CHF) Admission/Observation Consideration of admission/observation: Escalation of care including admission/observation considered Consult Healthcare Provider Management of the patient was discussed with: Hospitalist Lab Data [facility] Lab Attestation statement: I reviewed the patient's lab results. 04/22/22 02:36 04/22/22 02:36 Labs: Lab Results 04/22/22 04/22/22 04/22/22 Range/Units 02:36 02:36 02:36 WBC 6.5 (4.8-10.8) X10*3/uL RBC 2.43 L (4.20-5.50) X10*6/uL Hgb 6.6 L* (12.0-16.0) g/dl Hct 20.7 L* (37.0-47.0) % MCV 85.2 (80.0-98.0) fL MCH 27.2 (27.0-33.0) pg MCHC 31.9 (31.0-35.0) g/dl RDW 16.3 H (11.0-16.0) % Plt Count 225 (160-400) X10*3/uL MPV 12.0 (9.4-12.3) fL Immature Gran % (Auto) 0.3 (0.0-0.4) % Neut % (Auto) 82.3 H (45-73) % Lymph % (Auto) 6.6 L (20-40) % [place] % (Auto) 6.6 (2-11) % Eos % (Auto) 3.7 (0-4) % Baso % (Auto) 0.5 (0-2) % Lymph # (Auto) 0.4 L (1.2-4.9) X10*3/uL [place] # (Auto) 0.4 (0.1-1.2) X10*3/uL Eos # (Auto) 0.2 (0.0-0.4) X10*3/uL Baso # (Auto) 0.0 (0.0-0.2) X10*3/uL Abs Immat Gran (auto) 0.02 (0.00-0.03) X10*3/uL Absolute Neuts (auto) 5.3 (2.0-8.3) x10*3/uL Absolute Nucleated RBC 0.000 (0.0-0.012) X10*3/uL Nucleated RBC % (auto) 0.0 (0.0-0.2) /100WBC Sodium 138 (135-145) mmol/L Potassium 4.9 D (3.3-5.1) mmol/L Chloride 112 H (96-108) mmol/L Carbon Dioxide 18 L (22-29) mmol/L Anion Gap 13 (12-20) BUN 48 H (9-16) mg/dL Creatinine 3.07 H (0.5-1.4) mg/dL Estim Creat Clear Calc 24.4 Estimated GFR 17 POC Glucose (60-115) mg/dL Random Glucose 208 H (60-115) mg/dL Calcium 8.1 L (8.4-10.2) mg/dL Troponin I High Sens 17.8 H (<3.5-17.0) ng/L Specimen Comment Blood Type Antibody Screen Crossmatch 04/22/22 04/22/22 04/22/22 Range/Units 02:36 03:13 03:28 WBC (4.8-10.8) X10*3/uL RBC (4.20-5.50) X10*6/uL Hgb (12.0-16.0) g/dl Hct (37.0-47.0) % MCV (80.0-98.0) fL MCH (27.0-33.0) pg MCHC (31.0-35.0) g/dl RDW (11.0-16.0) % Plt Count (160-400) X10*3/uL MPV (9.4-12.3) fL Immature Gran % (Auto) (0.0-0.4) % Neut % (Auto) (45-73) % Lymph % (Auto) (20-40) % [place] % (Auto) (2-11) % Eos % (Auto) (0-4) % Baso % (Auto) (0-2) % Lymph # (Auto) (1.2-4.9) X10*3/uL [place] # (Auto) (0.1-1.2) X10*3/uL Eos # (Auto) (0.0-0.4) X10*3/uL Baso # (Auto) (0.0-0.2) X10*3/uL Abs Immat Gran (auto) (0.00-0.03) X10*3/uL Absolute Neuts (auto) (2.0-8.3) x10*3/uL Absolute Nucleated RBC (0.0-0.012) X10*3/uL Nucleated RBC % (auto) (0.0-0.2) /100WBC Sodium (135-145) mmol/L Potassium (3.3-5.1) mmol/L Chloride (96-108) mmol/L Carbon Dioxide (22-29) mmol/L Anion Gap (12-20) BUN (9-16) mg/dL Creatinine (0.5-1.4) mg/dL Estim Creat Clear Calc Estimated GFR POC Glucose 183 H (60-115) mg/dL Random Glucose (60-115) mg/dL Calcium (8.4-10.2) mg/dL Troponin I High Sens (<3.5-17.0) ng/L Specimen Comment DELAY Blood Type A Positive Antibody Screen NEGATIVE Crossmatch See Detail Independent Interpretation I performed an independent interpretation of an: EKG (Sinus tachycardia, heart rate 107, no EKG changes from EKG of March 2022, right bundle branch block which is old) and Plain X-Ray (My chest x-ray interpretation: Mild vascular congestion) Radiology Impression Discussion of test interpretation with radiology: I have reviewed the radiologist's reading. Radiologist Impression: INDINGS: Lungs are mildly hypoinflated. No focal consolidation is seen. Central vasculature appears mildly prominent. No evidence of pneumothorax or significant pleural effusion, though small pleural effusions are difficult to exclude without a lateral view. Cardiac silhouette appears at the upper limits of normal in size. No acute osseous findings are seen. XR/XR chest 1V IMPRESSION: Mildly prominent central vasculature which may reflect congestion in the proper clinical setting. ? Critical Care Time Critical Care Time Critical Care Time: Yes Total Critical Care Time: 60 Attestation: I have personally provided critical care time. Time includes review of lab data, radiology results, discussion with consultants, and monitoring for potential decompensation. Intervention performed as documented. Discharge Plan Discharge Clinical Impression: Anemia, CHF (congestive heart failure) Patient Disposition: Admitted As Inpatient Prescriptions: No Action nifedipine 30 mg tablet extended release 24hr 1 tab PO DAILY acetaminophen 325 mg tablet 325 mg PO NEEDED torsemide 20 mg tablet 1 tab PO DAILY ondansetron HCl 4 mg tablet 1 tab PO Q8H PRN (Reason: nausea/vomiting) aspirin 81 mg tablet,delayed release (DR/EC) 2 tab PO DAILY metoclopramide HCl 5 mg tablet 1 tab PO Q6H PRN (Reason: nausea/vomiting) pantoprazole 40 mg tablet,delayed release (DR/EC) 1 tab PO DAILY oxycodone 5 mg tablet 5 mg PO Q6-8H PRN (Reason: Pain) Levemir FlexTouch U-100 Insuln 100 unit/mL (3 mL) insulin pen 8 unit subcut BEDTIME diclofenac sodium 1 % gel 1 applic topical QID hydralazine 10 mg Tablet 10 mg PO BID Qty: 60 0RF Protocol: Hold for SBP< HOLD for SBP < : 90 amlodipine 10 mg Tablet 10 mg PO DAILY Qty: 30 0RF Protocol: Hold for SBP< HOLD for SBP < : 90 iatyphlqdj-uvlgxlpyvcfom-itrg 50-325-40 mg Tablet 1 tab PO Q4H PRN (Reason: headache ) Qty: 18 0RF Levemir FlexTouch U-100 Insuln 100 unit/mL (3 mL) insulin pen 20 unit subcut DAILY Qty: 0 0RF
[2022-04-22] MEDS: ondansetron HCL 4 MG/2 ML VIAL IVPUSH ×3 (03:13→14:57)
[2022-04-22 03:14] LABS: Troponin-I High Sensitivity 17.8 ng/L (<3.5-17.0)
[2022-04-22 03:26] LABS: Anion Gap 13 (12-20); Blood Urea Nitrogen 48 mg/dL (9-16); Calcium 8.1 mg/dL (8.4-10.2); Carbon Dioxide 18 mmol/L (22-29); Chloride 112 mmol/L (96-108); Creatinine Clr Calc Pharmacy 24.4; Estimated Glomerular Filt Rate 17; Glucose Random 208 mg/dL (60-115); Potassium 4.9 mmol/L (3.3-5.1); Sodium 138 mmol/L (135-145)
--- NOTE | 2022-04-22 03:29 | PC.NURSE ---
Dr. Oquendo at beside getting concert for blood transfusion, Pt states I can't see, I can't sign agreeable to blood transfusion.
[2022-04-22 03:30] LABS: Glucose, Whole Blood 183 mg/dL (60-115)
--- NOTE | 2022-04-22 03:37 | PC.NURSE ---
Pt allergic to morphine, med not given, Pt does not take this med at home unable to change comment.
[2022-04-22] MEDS: HYDROmorphone HCl 1 MG/ML SYRINGE IVPUSH ×2 (03:40→10:28)
[2022-04-22] MEDS: Prochlorperazine Edisylate 10 MG/2 ML VIAL IVPUSH (03:40)
--- NOTE | 2022-04-22 04:26 | PC.NURSE ---
Blood verified and started. Provider Dr. Pal aware of VS.
--- NOTE | 2022-04-22 04:41 | PC.NURSE ---
Blood transfusion running, Pt denies any adverse reaction, resting comfortably, no apparent distress. Reports effectiveness to pain med given. Will CTM for TACO.
[2022-04-22 05:48] LABS: Delay - Chemistry DELAY
--- NOTE | 2022-04-22 06:43 | PC.NURSE ---
Pt refusing 2nd IV placement. Blood transfusion running to L AC.
--- NOTE | 2022-04-22 07:23 | MHC.EDTECH ---
Blood collected and sent to lab
[2022-04-22 07:50] LABS: Troponin-I High Sensitivity 17.5 ng/L (<3.5-17.0)
[2022-04-22] MEDS: Furosemide 20 MG/2 ML VIAL IVPUSH (08:20)
--- NOTE | 2022-04-22 08:30 | PC.NURSE ---
pt vomiting after few sips of water, finally got a second iv in place in the left wrist area, pt continuos on taking her oxygen off and oxygen drops down to 87% on room air, respirations even but slightly labored at 22-24, but to goes right back to 96% on 2l litters, slightly jaundice, pt is also reporting left sided rib/side pain 10/10, sinus tach on the monitor at 112 and hypertensive at 199/104.
--- NOTE | 2022-04-22 09:20 | MHC.EDTECH ---
Assisted pt off of commode
--- NOTE | 2022-04-22 10:29 | PHA.MEDREC ---
Pharmacy Consult ? Medication Reconciliation Pharmacy has completed the medication reconciliation. Patient poor historian of medications. Patient reports they do not take their insulin at home. Only gave nodding or shaking of head, repeatedly said they don't know . Called pharmacies to confirm meds, but limited information gathered due to their records not recording dose changes for medications like amlodipine or nifedipine. Called primary and secondary contact with no answer, left message to call pharmacy back. Patient was recently discharged 04/03/22, went off discharge meds and verified with claim history. Added hydromorphone due to recent fill on 04/15/22, d/c'd oxycodone in response.
--- NOTE | 2022-04-22 11:08 | P.HPHOSP_ITS ---
History of Present Illness Date of Service: 04/22/22 Attending physician on admission: [facility] Chief Complaint: SOB, cough Pt is a -year-old female with a PMH significant for?HTN, HFrEF, CKD stage 3, insulin-dependent diabetes, diabetic neuropathy legally blind, s/p right TMA, multiple left toe amputations, and hx of right foot osteomyelitis?who presents to the ED with?increasing SOB x3 days. Pt states she feels like she has water on her lungs with associated dry cough and left-sided abdominal pain that radiates to her back. Says this occurs every time when I retain fluid. E ndorses orthopnea and increased bilateral lower leg swelling. Pt also began having nausea and vomiting yesterday, continuing to today. Has been unable to take p.o. medications. Pt denies fever, chills. No chest pain/pressure, palpitations. No diarrhea, changes to bowel or bladder habits. Of note, patient has anemia of chronic disease and has refused transfusions and Procrit in the past; was found to have H&H of 6/6/20.7, agreeable to transfusion in ED. In the ED patient was afebrile, tachycardic up to 116, tachypneic got to 30, and hypertensive up to 193/104. Labs were significant for H&H of 6.6/20.7, elevated BUN of 48, creatinine at 3.05 (at new baseline established 01/05/2022), glucose 208, troponin 17.8 with repeat flat at 17.5, BNP 1589. CXR showed mild prominent central vasculature suggestive of possible congestion. EKG demonstrated sinus tachycardia with right bundle branch block. Pt was treated with hydromorphone, furosemide 20 mg, and ondansetron. Pt will be admitted to the hospital treatment of acute CHF exacerbation with IV diuretics. Review of Systems Review of Systems: Shortness of breath x3 days Nonproductive cough x3 days Orthopnea Lower leg edema Left-sided abdominal pain radiating to back Nausea, vomiting since yesterday Denies fever, chills No chest pain/pressure, palpitations Yes all other systems are reviewed and are negative [facility] Medical History Abnormal finding on echocardiogram Acute dyspnea Acute worsening of stage 3 chronic kidney disease MYNOR (acute kidney injury) Asthma Back pain Blind right eye Bone infection Cellulitis Cellulitis and abscess of foot Chest pain CHF (congestive heart failure) CKD (chronic kidney disease) Depression with anxiety Diabetes Diabetic retinopathy DM foot ulcer Elevated troponin Essential hypertension Fever Generalized edema HTN (hypertension) Migraine Osteomyelitis PAD (peripheral artery disease) Pleural effusion test positive test positive Sepsis Severe anemia Tachycardia Type 2 diabetes mellitus with hyperglycemia, with long-term current use of insulin Family History Mother Coronary artery disease Myocardial infarction Stroke Diabetes mellitus Father Myocardial infarction Surgical History History of transmetatarsal amputation of foot S/P transmetatarsal amputation of foot Social History Household Members: Significant Other Household Members Other:: Sister, Odoyhff-da-Amy, nephew Housing: Apartment Do you presently have visiting nurse or other home services: Yes ([employer] services) Alcohol intake: never Patient Tobacco Use Status: Never used Tobacco Smoked in Last 30 Days: No e-Cigarette/Vaping Use: Never Used Second Hand Smoke Exposure: No Use of substances other than those prescribed or required for medical reasons: No Advance Directives: No Advance Directives Information Provided: No Advance Directives Date on File: 03/08/20 Patient : No service: No Current occupational status: unemployed and disabled Gender identity: Female Meds Allergies Allergy/AdvReac Type Severity Reaction Status Date / Time morphine [MORPHINE] Allergy Intermediate Itching Verified 04/22/22 03:18 azithromycin [From Zithromax] Allergy Hives Verified 04/22/22 03:18 gabapentin Allergy Facial Verified 04/22/22 03:19 Swelling tramadol Allergy Facial Verified 04/22/22 03:19 Swelling vancomycin Allergy Hives Verified 04/22/22 03:18 Home Medications Medication Instructions Recorded Confirmed Last Taken Type acetaminophen 325 mg tablet 650 mg PO Q4H PRN Pain 04/01/22 04/22/22 Unknown History aspirin 81 mg tablet,delayed 2 tab PO DAILY 04/01/22 04/22/22 2 Days Ago History release ~04/20/22 diclofenac sodium 1 % topical gel 1 applic topical QID 04/01/22 04/22/22 2 Days Ago History ~04/20/22 nifedipine 30 mg tablet,extended 1 tab PO DAILY 04/01/22 04/22/22 2 Days Ago History release 24 hr ~04/20/22 ondansetron HCl 4 mg tablet 1 tab PO Q8H PRN nausea/vomiting 04/01/22 04/22/22 Unknown History pantoprazole 40 mg tablet,delayed 1 tab PO DAILY@0630 04/01/22 04/22/22 2 Days Ago History release ~04/20/22 torsemide 20 mg tablet 1 tab PO DAILY 04/01/22 04/22/22 2 Days Ago History ~04/20/22 hydromorphone 2 mg tablet 1 tab PO Q4H PRN severe pain 04/22/22 04/22/22 Unknown History metoclopramide HCl 5 mg tablet 1 tab PO QID PRN Nausea And 04/22/22 04/22/22 Unknown History Vomiting Physical Exam Vital Signs and Narrative: Vital Signs: Last Vital Signs Temp 98.6 F 04/22/22 09:05 Pulse 104 H 04/22/22 09:20 Resp 20 04/22/22 09:05 BP 174/90 H 04/22/22 09:20 Pulse Ox 95 04/22/22 08:25 O2 Del Method 04/22/22 08:25 O2 Flow Rate 2 04/22/22 08:25 BMI result Body Mass Index 24.2 Constitutional: Uncomfortable, vomiting, laying on side. Mental Status: Oriented to person, place and time. Eyes: Pupils are equal, round, and reactive to light. Ear, Nose, and Throat: Oropharynx clear, mucous membranes moist. Ears and nose without deformities. Trachea midline. Respiratory: Diffuse inspiratory and expiratory rhonchi bilaterally. Cardiovascular: S1, S2, tachycardic. No murmurs, rubs, or gallops. Gastrointestinal: Abdomen soft, tender in epigastric region and diffusely on left side, non-distended. Normal bowel sounds. Neurologic: Cranial nerves II-XII are grossly intact. No focal neurological deficits. Moves all extremities spontaneously. Skin: No rashes or lesions noted. Musculoskeletal: Left-sided diffuse tenderness of back. Extremities: Bilateral +1 pitting lower leg edema. Psychiatric: Normal mood and affect. Results Labs 04/22/22 02:36 04/22/22 02:36 Labs: Laboratory Results - last 24 hr 04/22/22 04/22/22 04/22/22 02:36 02:36 02:36 MCV 85.2 MCH 27.2 MCHC 31.9 RDW 16.3 H Plt Count 225 MPV 12.0 Immature Gran % (Auto) 0.3 Neut % (Auto) 82.3 H Lymph % (Auto) 6.6 L Swisher % (Auto) 6.6 Eos % (Auto) 3.7 Baso % (Auto) 0.5 Lymph # (Auto) 0.4 L Swisher # (Auto) 0.4 Eos # (Auto) 0.2 Baso # (Auto) 0.0 Abs Immat Gran (auto) 0.02 Absolute Neuts (auto) 5.3 Absolute Nucleated RBC 0.000 Nucleated RBC % (auto) 0.0 Anion Gap 13 Estim Creat Clear Calc 24.4 Estimated GFR 17 POC Glucose Random Glucose 208 H Calcium 8.1 L Troponin I High Sens 17.8 H Specimen Comment Blood Type Antibody Screen Crossmatch 04/22/22 04/22/22 04/22/22 02:36 03:13 03:28 MCV MCH MCHC RDW Plt Count MPV Immature Gran % (Auto) Neut % (Auto) Lymph % (Auto) Swisher % (Auto) Eos % (Auto) Baso % (Auto) Lymph # (Auto) Swisher # (Auto) Eos # (Auto) Baso # (Auto) Abs Immat Gran (auto) Absolute Neuts (auto) Absolute Nucleated RBC Nucleated RBC % (auto) Anion Gap Estim Creat Clear Calc Estimated GFR POC Glucose 183 H Random Glucose Calcium Troponin I High Sens Specimen Comment DELAY Blood Type A Positive Antibody Screen NEGATIVE Crossmatch See Detail 04/22/22 07:18 MCV MCH MCHC RDW Plt Count MPV Immature Gran % (Auto) Neut % (Auto) Lymph % (Auto) Swisher % (Auto) Eos % (Auto) Baso % (Auto) Lymph # (Auto) Swisher # (Auto) Eos # (Auto) Baso # (Auto) Abs Immat Gran (auto) Absolute Neuts (auto) Absolute Nucleated RBC Nucleated RBC % (auto) Anion Gap Estim Creat Clear Calc Estimated GFR POC Glucose Random Glucose Calcium Troponin I High Sens 17.5 H Specimen Comment Blood Type Antibody Screen Crossmatch Imaging Radiologist's Impressions: Impressions Chest X-Ray 04/22/22 03:27 IMPRESSION: Mildly prominent central vasculature which may reflect congestion in the proper clinical setting. Assessment and Plan (1) CHF (congestive heart failure): Status: Acute Plan Pt is a -year-old female with a PMH significant for?HTN, HFrEF, CKD stage 3, insulin-dependent diabetes, diabetic neuropathy legally blind, s/p right TMA, multiple left toe amputations, and hx of right foot osteomyelitis?who presents to the ED with?increasing SOB x3 days. Acute HFrEF exacerbation Elevated BNP, CXR suggestive of vascular congestion, dry cough, orthopnea, bilateral pitting edema, lungs rhonchorous Furosemide IV 40 mg b.i.d. Hold torsemide Follow lytes, Mag, I/O Daily weights, low-salt diet Admit to telemetry Anemia of chronic disease H&H 6.6/20.7, slightly below baseline Patient received one unit of PRBC in ED Pneumatic boots for DVT prophylaxis Follow CBC Hypertensive urgency Patient has long history of BP difficult to control, has not had BP meds for past 2 days d/t N/V Continue amlodipine, hydralazine, nifedipine Monitor BP Elevated troponins Patient's initial troponin 17.8, repeat flat at 17.5 Likely type 2 in the setting of demand ischemia Check third troponin Nausea, vomiting Pt with long history of N/V, on home ondansetron and metoclopramide Ondansetron IV q4 prn, continue metoclopramide CKD stage 3 Creatinine 3.05, at baseline Monitor BMP Diabetes Patient has a long history of poorly controlled diabetes Concurrently does not appear to be on any diabetic medication SSI Diabetic diet Full Code Attending:?Dr. Blanton DVT Prophylaxis: Pneumatic boots Pt will require a hospitalization of at least two nights for treatment of? with . Pt will be admitted to the hospital treatment of acute CHF exacerbation with IV diuretics Time Spent With Patient Time: Total time managing care of this patient today ____ minutes. Quality Stroke Does the patient have a stroke diagnosis?: No VTE Prior VTE?: No VTE Risk Level:: Medical - moderate - high VTE Device Contraindication: N/A - Device Ordered VTE Drug Contraindication: Treatment Not Indicated
[2022-04-22 11:23] LABS: B Type Natriuretic Peptide 1589 pg/mL (<100)
--- NOTE | 2022-04-22 11:27 | MHC.EDTECH ---
covid swab collected and sent
[2022-04-22 11:44] LABS: COVID-19 Test Negative (Negative); IDNOW Serial# 9DB6401D
--- NOTE | 2022-04-22 12:07 | PC.NURSE ---
pharmacy contacted for missing medication.
[2022-04-22] MEDS: amLODIPine Besylate 10 MG TABLET PO (12:53)
[2022-04-22] MEDS: NIFEdipine ER 30 MG TAB.ER.24 PO (12:53)
--- NOTE | 2022-04-22 12:59 | PC.NURSE ---
pt medicated per provider order.
--- NOTE | 2022-04-22 13:44 | PC.NURSE ---
pt refusing labs w phlebotomy, provider notified, at bedside w pt.
[2022-04-22] MEDS: 0.9 % Sodium Chloride Flush 3 ML SYRINGE IVFLUSH ×2 (14:59→21:20)
--- NOTE | 2022-04-22 15:14 | PC.NURSE ---
blood bank band too tight on wrist, blood bank called, herbarium curator added by blood bank staff.
[2022-04-22] MEDS: guaiFEN/Codeine SF 200/20/10ML 10 ML LIQUID PO (16:37)
--- NOTE | 2022-04-22 17:13 | MHC.EDTECH ---
PATIENT RANG FOR WATER ,BLOOD SUGAR CHECK DONE ,VITALS SIGN TAKEN ,PT RESTING IN BED .
[2022-04-22 17:18] LABS: Glucose, Whole Blood 201 mg/dL (60-115)
[2022-04-22] MEDS: HYDROmorphone HCl 2 MG TABLET PO (18:33)
[2022-04-22] MEDS: Furosemide 40 MG TABLET PO (18:34)
--- NOTE | 2022-04-22 20:13 | PC.NURSE ---
RN-RN report given to C
[2022-04-22 20:55] LABS: Glucose, Whole Blood 217 mg/dL (60-115)
[2022-04-22] MEDS: hydrALAZINE HCl 10 MG TABLET PO (21:20)
[2022-04-23 03:33] VITALS: BP 160/89; PULSE 87; RESP 18; TEMP 37.2; O2SAT 92
[2022-04-23] MEDS: guaiFEN/Codeine SF 200/20/10ML 10 ML LIQUID PO ×3 (06:12→20:17)
[2022-04-23 07:39] VITALS: BP 150/76; PULSE 93; RESP 14; TEMP 36.6; O2SAT 96
[2022-04-23 07:53] LABS: Glucose, Whole Blood 132 mg/dL (60-115)
--- NOTE | 2022-04-23 09:11 | MHC.CM.PN ---
04/23/22 09:05 - Case Mgmt Progress Note by Abbie Mejiaue Acct Num: [id number] : 1990 Patient Age: 31 CM has attempted X2 to speak with Patient, who remains with Back Turned and sheet up very close to her head despite CM calling out her name. IMM left at bedside to Patient's review and a copy placed on the chart. 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 Home/resume said services is the tentative plan and CM has initiated and will follow for dc planning. Patient has received Moderna/covid vax x3 and her PCP is Dr. Beard from [facility].
[2022-04-23] MEDS: NIFEdipine ER 30 MG TAB.ER.24 PO (10:12)
[2022-04-23] MEDS: hydrALAZINE HCl 10 MG TABLET PO ×2 (10:12→20:07)
[2022-04-23] MEDS: 0.9 % Sodium Chloride Flush 3 ML SYRINGE IVFLUSH (10:13)
[2022-04-23] MEDS: Torsemide 20 MG TABLET PO (10:13)
[2022-04-23] MEDS: amLODIPine Besylate 10 MG TABLET PO (10:13)
[2022-04-23] MEDS: HYDROmorphone HCl 2 MG TABLET PO ×2 (10:26→20:07)
[2022-04-23 11:35] VITALS: BP 165/80; PULSE 90; RESP 14; TEMP 36.4; O2SAT 100
[2022-04-23 11:43] LABS: Glucose, Whole Blood 149 mg/dL (60-115)
--- NOTE | 2022-04-23 14:44 | HO.PM.IMPN ---
Subjective Subjective Date of Service: 04/23/22 Interval History: seen and examined this morning follow up for chf, anemia reporting cough refused am labs Review of Systems Review of Systems: Yes all other systems are reviewed and are negative Constitutional Constitutional: Denies chills and Denies fever(s) ENT Ears, Nose, Mouth, and Throat: Denies dizziness Cardiovascular Cardiovascular: Denies chest pain, Denies palpitations and Reports dyspnea Respiratory Respiratory: Reports cough and Reports dyspnea Gastrointestinal Gastrointestinal: Denies abdominal pain Neurologic Neurologic: Denies dizziness Endocrine Endocrine: Denies palpitations Physical Exam Vital Signs: Vital Signs: Last Vital Signs Temp 97.6 F 04/23/22 11:35 Pulse 90 04/23/22 11:35 Resp 14 04/23/22 11:35 BP 165/80 H 04/23/22 11:35 Pulse Ox 100 04/23/22 11:35 O2 Del Method 04/23/22 11:35 O2 Flow Rate 2 04/23/22 07:39 BMI result Body Mass Index 24.2 Const: General: comfortable, no acute distress, alert and awake Nutritional Appearance: average body habitus Orientation/consciousness: patient oriented x3 Resp: Other: b/l rhonchi Effort & Inspection: normal respiratory effort and able to speak in complete sentences Cardio: Rate: regular rate Heart sounds: S1 normal heart sound present and S2 normal heart sound present GI: Inspection: No distended Palpation (GI): Soft to palpation and no guarding Neuro: General: patient oriented x3 Extrem: Other: 1+ leg edema Objective Data Active Medications Amlodipine Besylate (Amlodipine Besylate 10 Mg Tablet) 10 mg PO DAILY [facility]; Protocol Last Admin: 04/23/22 10:13 Dose: 10 mg Documented By: DAE Dextrose (Dextrose 50 % 25 Gm/50 Ml Syringe) 25 gm IVPUSH Q15M PRN; Protocol PRN Reason: per Hypoglycemia Standing Ord. Docusate Sodium (Docusate Sodium 100 Mg Capsule) 100 mg PO DAILY PRN PRN Reason: Constipation Glucose (Glucose Gel 15 Gm Gel..Gram.) 15 gm PO Q15M PRN; Protocol PRN Reason: per Hypoglycemia Standing Ord. Guaifenesin/Codeine Phosphate (Guaifen/Codeine Sf 200/20/10ml 10 Ml Liquid) 10 ml PO Q4H PRN PRN Reason: Cough Last Admin: 04/23/22 10:26 Dose: 10 ml Documented By: DAE Hydralazine HCl (Hydralazine Hcl 10 Mg Tablet) 10 mg PO BID [facility]; Protocol Last Admin: 04/23/22 10:12 Dose: 10 mg Documented By: DAE Hydromorphone HCl (Hydromorphone Hcl 2 Mg Tablet) 2 mg PO Q4H PRN PRN Reason: severe pain Last Admin: 04/23/22 10:26 Dose: 2 mg Documented By: DAE Insulin Human Lispro (Insulin Lispro 100 Unit/Ml 3 Ml Vial) 0 unit SUBCUT QIDACHS [facility]; Protocol Last Admin: 04/23/22 11:55 Dose: Not Given Documented By: DAE Non-Admin Reason: No Insulin Coverage Metoclopramide HCl (Metoclopramide Hcl 5 Mg Tablet) 5 mg PO QID PRN PRN Reason: Nausea And Vomiting Nifedipine (Nifedipine Er 30 Mg Tab.Er.24) 30 mg PO DAILY [facility]; Protocol Last Admin: 04/23/22 10:12 Dose: 30 mg Documented By: DAE Omeprazole (Omeprazole 20 Mg Capsule.Dr) 20 mg PO DAILY@0630 [facility] Last Admin: 04/23/22 06:12 Dose: Not Given Documented By: SAMSON Non-Admin Reason: Patient Refused Ondansetron HCl (Ondansetron Hcl 4 Mg/2 Ml Vial) 4 mg IVPUSH Q4H PRN PRN Reason: Nausea Last Admin: 04/22/22 14:57 Dose: 4 mg Documented By: ERICA Pharmacy Consult (Consult Rx Perform Med Rec) 1 each MISCELLANE ONCE PRN PRN Reason: Consult order Sodium Chloride (0.9 % Sodium Chloride Flush 3 Ml Syringe) 3 ml IVFLUSH [facility] Last Admin: 04/23/22 10:13 Dose: 3 ml Documented By: DAE Torsemide (Torsemide 20 Mg Tablet) 20 mg PO DAILY [facility]; Protocol Last Admin: 04/23/22 10:13 Dose: 20 mg Documented By: DAE Labs 04/22/22 02:36 04/22/22 02:36 Labs: Laboratory Results - last 24 hr 04/22/22 04/22/22 04/23/22 17:09 20:50 07:34 POC Glucose 201 H 217 H 132 H 04/23/22 11:03 POC Glucose 149 H Assessment and Plan (1) Anemia: Status: Acute (2) CHF (congestive heart failure): Status: Acute Plan Pt is a -year-old female with a PMH significant for?HTN, HFrEF, CKD stage 3, insulin-dependent diabetes, diabetic neuropathy legally blind, s/p right TMA, multiple left toe amputations, and hx of right foot osteomyelitis?who presents to the ED with?increasing SOB x3 days. Acute HFrEF exacerbation Elevated BNP, CXR suggestive of vascular congestion, dry cough, orthopnea, bilateral pitting edema, lungs rhonchorous stop lasix, resume torsemide Daily weights, low-salt diet Admit to telemetry Anemia of chronic disease H&H 6.6/20.7, slightly below baseline Patient received one unit of PRBC in ED Pneumatic boots for DVT prophylaxis Follow CBC Hypertensive urgency Patient has long history of BP difficult to control no further vomiting Continue amlodipine, hydralazine, nifedipine Monitor BP Elevated troponins Patient's initial troponin 17.8, repeat flat at 17.5 Likely type 2 in the setting of demand ischemia Check third troponin Nausea, vomiting Pt with long history of N/V, on home ondansetron and metoclopramide Ondansetron IV q4 prn, continue metoclopramide CKD stage 3 Creatinine 3.05, at baseline Monitor BMP Diabetes Patient has a long history of poorly controlled diabetes Concurrently does not appear to be on any diabetic medication SSI Diabetic diet Full Code Attending:?Dr. Bess DVT Prophylaxis: Pneumatic boots ongoing admission for chf, uncontrolled HTN Time Spent With Patient Time: Total time managing care of this patient today ____ minutes. Quality Stroke Does the patient have a stroke diagnosis?: No VTE Prior VTE?: No VTE Risk Level:: Medical - moderate - high VTE Device Contraindication: N/A - Device Ordered VTE Drug Contraindication: Treatment Not Indicated
[2022-04-23 15:50] VITALS: BP 143/85; PULSE 86; RESP 20; TEMP 36.7; O2SAT 94
[2022-04-23 16:44] LABS: Glucose, Whole Blood 97 mg/dL (60-115)
[2022-04-23 17:48] LABS: Anion Gap 13 (12-20); Blood Urea Nitrogen 48 mg/dL (9-16); Calcium 8.2 mg/dL (8.4-10.2); Carbon Dioxide 20 mmol/L (22-29); Chloride 109 mmol/L (96-108); Creatinine Clr Calc Pharmacy 23.4; Estimated Glomerular Filt Rate 17; Glucose Random 103 mg/dL (60-115); Magnesium 1.8 mg/dL (1.6-2.6); Potassium 4.4 mmol/L (3.3-5.1); Sodium 138 mmol/L (135-145)
[2022-04-23 20:00] VITALS: BP 139/74; PULSE 89; RESP 20; TEMP 37; O2SAT 92
[2022-04-23 20:15] LABS: Glucose, Whole Blood 124 mg/dL (60-115)
[2022-04-23 23:29] VITALS: BP 120/66; PULSE 87; RESP 16; TEMP 36.1; O2SAT 92
[2022-04-24] MEDS: guaiFEN/Codeine SF 200/20/10ML 10 ML LIQUID PO ×3 (03:18→20:05)
[2022-04-24 03:24] VITALS: BP 163/87; PULSE 92; RESP 15; TEMP 36.3; O2SAT 96
[2022-04-24 07:20] LABS: Glucose, Whole Blood 135 mg/dL (60-115)
[2022-04-24 07:39] VITALS: BP 145/76; PULSE 89; RESP 16; TEMP 36.6; O2SAT 91
[2022-04-24] MEDS: Torsemide 20 MG TABLET PO (09:56)
[2022-04-24] MEDS: HYDROmorphone HCl 2 MG TABLET PO ×2 (09:57→20:04)
[2022-04-24] MEDS: hydrALAZINE HCl 10 MG TABLET PO ×2 (09:57→20:00)
[2022-04-24] MEDS: NIFEdipine ER 30 MG TAB.ER.24 PO (09:57)
[2022-04-24] MEDS: amLODIPine Besylate 10 MG TABLET PO (09:57)
[2022-04-24 10:48] LABS: Hematocrit 22.8 % (37.0-47.0); Hemoglobin 7.3 g/dl (12.0-16.0); Mean Corpuscular Hemoglobin 27.3 pg (27.0-33.0); Mean Corpuscular Volume 85.4 fL (80.0-98.0); Platelet Count 193 X10*3/uL (160-400); Red Blood Count 2.67 X10*6/uL (4.20-5.50); Red Cell Distribution Width 17.2 % (11.0-16.0); White Blood Count 4.6 X10*3/uL (4.8-10.8)
[2022-04-24 11:04] LABS: Glucose, Whole Blood 126 mg/dL (60-115)
[2022-04-24 11:07] LABS: Anion Gap 9 (12-20); Blood Urea Nitrogen 44 mg/dL (9-16); Calcium 8.2 mg/dL (8.4-10.2); Carbon Dioxide 23 mmol/L (22-29); Chloride 107 mmol/L (96-108); Creatinine Clr Calc Pharmacy 23.7; Estimated Glomerular Filt Rate 17; Glucose Random 131 mg/dL (60-115); Potassium 4.4 mmol/L (3.3-5.1); Sodium 135 mmol/L (135-145)
[2022-04-24 11:31] VITALS: BP 148/73; PULSE 89; RESP 16; TEMP 36.5; O2SAT 96
--- NOTE | 2022-04-24 11:40 | P.PNIM_ITS ---
Subjective Subjective Date of Service: 04/24/22 Interval History: seen and examined this morning follow up for chf, anemia reporting cough refused am labs Review of Systems Review of Systems: Yes all other systems are reviewed and are negative Constitutional Constitutional: Denies chills and Denies fever(s) ENT Ears, Nose, Mouth, and Throat: Denies dizziness Cardiovascular Cardiovascular: Denies chest pain, Denies palpitations and Reports dyspnea Respiratory Respiratory: Reports cough and Reports dyspnea Gastrointestinal Gastrointestinal: Denies abdominal pain Neurologic Neurologic: Denies dizziness Endocrine Endocrine: Denies palpitations Physical Exam Vital Signs: Vital Signs: Last Vital Signs Temp 97.7 F 04/24/22 11:31 Pulse 89 04/24/22 11:31 Resp 16 04/24/22 11:31 BP 148/73 H 04/24/22 11:31 Pulse Ox 96 04/24/22 11:31 O2 Del Method 04/24/22 11:31 O2 Flow Rate 2 04/24/22 03:24 BMI result Body Mass Index 24.2 Appearing in no acute distress, blind lung sounds are clear to auscultation heart regular rate rhythm, clear S1, S2 positive bowel sounds, abdomen is soft, nontender neuro patient is alert x3, no focal deficits Objective Data Active Medications Amlodipine Besylate (Amlodipine Besylate 10 Mg Tablet) 10 mg PO DAILY COUNTS INCLUDE 234 BEDS AT THE [facility]; Protocol Last Admin: 04/24/22 09:57 Dose: 10 mg Documented By: DAE Dextrose (Dextrose 50 % 25 Gm/50 Ml Syringe) 25 gm IVPUSH Q15M PRN; Protocol PRN Reason: per Hypoglycemia Standing Ord. Docusate Sodium (Docusate Sodium 100 Mg Capsule) 100 mg PO DAILY PRN PRN Reason: Constipation Glucose (Glucose Gel 15 Gm Gel..Gram.) 15 gm PO Q15M PRN; Protocol PRN Reason: per Hypoglycemia Standing Ord. Guaifenesin/Codeine Phosphate (Guaifen/Codeine Sf 200/20/10ml 10 Ml Liquid) 10 ml PO Q4H PRN PRN Reason: Cough Last Admin: 04/24/22 03:18 Dose: 10 ml Documented By: JUNIOR Hydralazine HCl (Hydralazine Hcl 10 Mg Tablet) 10 mg PO BID COUNTS INCLUDE 234 BEDS AT THE [facility]; Protocol Last Admin: 04/24/22 09:57 Dose: 10 mg Documented By: DAE Hydromorphone HCl (Hydromorphone Hcl 2 Mg Tablet) 2 mg PO Q4H PRN PRN Reason: severe pain Last Admin: 04/24/22 09:57 Dose: 2 mg Documented By: DAE Insulin Human Lispro (Insulin Lispro 100 Unit/Ml 3 Ml Vial) 0 unit SUBCUT QIDACHS COUNTS INCLUDE 234 BEDS AT THE [facility]; Protocol Last Admin: 04/24/22 11:11 Dose: Not Given Documented By: DAE Non-Admin Reason: No Insulin Coverage Metoclopramide HCl (Metoclopramide Hcl 5 Mg Tablet) 5 mg PO QID PRN PRN Reason: Nausea And Vomiting Nifedipine (Nifedipine Er 30 Mg Tab.Er.24) 30 mg PO DAILY COUNTS INCLUDE 234 BEDS AT THE [facility]; Protocol Last Admin: 04/24/22 09:57 Dose: 30 mg Documented By: DAE Omeprazole (Omeprazole 20 Mg Capsule.Dr) 20 mg PO DAILY@0630 COUNTS INCLUDE 234 BEDS AT THE [facility] Last Admin: 04/24/22 05:59 Dose: Not Given Documented By: JUNIOR Non-Admin Reason: Patient Refused Ondansetron HCl (Ondansetron Hcl 4 Mg/2 Ml Vial) 4 mg IVPUSH Q4H PRN PRN Reason: Nausea Last Admin: 04/22/22 14:57 Dose: 4 mg Documented By: ERICA Pharmacy Consult (Consult Rx Perform Med Rec) 1 each MISCELLANE ONCE PRN PRN Reason: Consult order Sodium Chloride (0.9 % Sodium Chloride Flush 3 Ml Syringe) 3 ml IVFLUSH QSHIFT COUNTS INCLUDE 234 BEDS AT THE [facility] Last Admin: 04/24/22 09:58 Dose: Not Given Documented By: DAE Non-Admin Reason: No Access Torsemide (Torsemide 20 Mg Tablet) 20 mg PO DAILY COUNTS INCLUDE 234 BEDS AT THE [facility]; Protocol Last Admin: 04/24/22 09:56 Dose: 20 mg Documented By: DAE Labs 04/24/22 10:34 04/24/22 10:34 Labs: Laboratory Results - last 24 hr 04/22/22 04/23/22 04/23/22 02:36 11:03 16:33 MCV MCH MCHC RDW Plt Count MPV Absolute Nucleated RBC Nucleated RBC % (auto) Smear Path Review SEE NOTE Anion Gap Estim Creat Clear Calc Estimated GFR POC Glucose 149 H 97 Random Glucose Calcium Magnesium 0204/23/22 04/24/22 17:04 20:01 07:12 MCV MCH MCHC RDW Plt Count MPV Absolute Nucleated RBC Nucleated RBC % (auto) Smear Path Review Anion Gap 13 Estim Creat Clear Calc 23.4 Estimated GFR 17 POC Glucose 124 H 135 H Random Glucose 103 Calcium 8.2 L Magnesium 1.8 04/24/22 04/24/22 04/24/22 10:34 10:34 10:55 MCV 85.4 MCH 27.3 MCHC 32.0 RDW 17.2 H Plt Count 193 MPV 12.0 Absolute Nucleated RBC 0.000 Nucleated RBC % (auto) 0.0 Smear Path Review Anion Gap 9 L Estim Creat Clear Calc 23.7 Estimated GFR 17 POC Glucose 126 H Random Glucose 131 H Calcium 8.2 L Magnesium Assessment and Plan (1) Anemia: Status: Acute (2) CHF (congestive heart failure): Status: Acute Plan Pt is a -year-old female with a PMH significant for?HTN, HFrEF, CKD stage 3, insulin-dependent diabetes, diabetic neuropathy legally blind, s/p right TMA, multiple left toe amputations, and hx of right foot osteomyelitis?who presents to the ED with?increasing SOB x3 days. Acute HFrEF exacerbation Elevated BNP (chronic), CXR suggestive of vascular congestion, dry cough, orthopnea, bilateral pitting edema, lungs clear today continue torsemide Daily weights, low-salt diet Anemia of chronic disease better today Patient received one unit of PRBC in ED Pneumatic boots for DVT prophylaxis Follow CBC Hypertensive urgency Patient has long history of BP difficult to control Continue amlodipine, hydralazine, nifedipine Monitor BP Elevated troponins Patient's initial troponin 17.8, repeat flat at 17.5 Likely type 2 in the setting of demand ischemia Nausea, vomiting Pt with long history of N/V, on home ondansetron and metoclopramide Ondansetron IV q4 prn, continue metoclopramide CKD stage 3 Creatinine 3.05, at baseline Monitor BMP Diabetes Patient has a long history of poorly controlled diabetes Concurrently does not appear to be on any diabetic medication SSI Diabetic diet che4ck A1C Full Code Attending:?Dr. Weeks DVT Prophylaxis: Pneumatic boots ongoing admission for chf, uncontrolled HTN Time Spent With Patient Time: Total time managing care of this patient today ____ minutes. Quality Stroke Does the patient have a stroke diagnosis?: No VTE Prior VTE?: No VTE Risk Level:: Medical - moderate - high VTE Device Contraindication: N/A - Device Ordered VTE Drug Contraindication: Treatment Not Indicated
--- NOTE | 2022-04-24 14:19 | MHC.CM.PN ---
per rounds pt not dcd today when dcd the plan remains home w/credit charge authorizer self arranged transportaion
[2022-04-24 14:54] VITALS: BP 146/72; PULSE 88; RESP 17; TEMP 36.4; O2SAT 90
[2022-04-24 15:38] LABS: Glucose, Whole Blood 115 mg/dL (60-115)
[2022-04-24 19:15] VITALS: BP 159/80; PULSE 93; RESP 17; TEMP 36.3; O2SAT 91
[2022-04-24 20:10] LABS: Glucose, Whole Blood 91 mg/dL (60-115)
[2022-04-25] VITALS: BP 137/73; PULSE 88; RESP 20; TEMP 36.2; O2SAT 94
[2022-04-25 03:40] VITALS: BP 130/72; PULSE 86; RESP 20; TEMP 36.1; O2SAT 93
[2022-04-25] MEDS: guaiFEN/Codeine SF 200/20/10ML 10 ML LIQUID PO ×2 (04:57→09:50)
[2022-04-25] MEDS: HYDROmorphone HCl 2 MG TABLET PO ×2 (04:57→09:50)
[2022-04-25] MEDS: Omeprazole 20 MG CAPSULE.DR PO (04:57)
[2022-04-25 07:36] LABS: Glucose, Whole Blood 108 mg/dL (60-115)
[2022-04-25 07:38] VITALS: BP 132/66; PULSE 91; RESP 18; TEMP 36.2; O2SAT 92
[2022-04-25] MEDS: NIFEdipine ER 30 MG TAB.ER.24 PO (09:45)
[2022-04-25] MEDS: hydrALAZINE HCl 10 MG TABLET PO (09:45)
[2022-04-25] MEDS: amLODIPine Besylate 10 MG TABLET PO (09:45)
[2022-04-25] MEDS: 0.9 % Sodium Chloride Flush 3 ML SYRINGE IVFLUSH (09:45)
[2022-04-25] MEDS: Torsemide 20 MG TABLET PO (09:45)
--- NOTE | 2022-04-25 10:39 | PM.DS ---
DS: Providers Provider Date of Service: 04/25/22 Date of admission: 04/22/22 11:57 Primary care physician: Unknown Physician Attending physician on discharge: Efraín Weeks Discharging clinician: Tawny Taylor DS: Diagnosis Discharge Diagnosis (1) Anemia: Status: Acute (2) CHF (congestive heart failure): Status: Acute DS: Summary Hospital Course Hospital Course: History and physical as per admitting provider Pt is a -year-old female with a PMH significant for?HTN, HFrEF, CKD stage 3, insulin-dependent diabetes, diabetic neuropathy legally blind, s/p right TMA, multiple left toe amputations, and hx of right foot osteomyelitis?who presents to the ED with?increasing SOB x3 days. Pt states she feels like she has water on her lungs with associated dry cough and left-sided abdominal pain that radiates to her back. Says this occurs every time when I retain fluid. Endorses orthopnea and increased bilateral lower leg swelling. Pt also began having nausea and vomiting yesterday, continuing to today. Has been unable to take p.o. medications. Pt denies fever, chills. No chest pain/pressure, palpitations. No diarrhea, changes to bowel or bladder habits.? Of note, patient has anemia of chronic disease and has refused transfusions and Procrit in the past; was found to have H&H of 6/6/20.7, agreeable to transfusion in ED. In the ED patient was afebrile, tachycardic up to 116, tachypneic got to 30, and hypertensive up to 193/104. Labs were significant for H&H of 6.6/20.7, elevated BUN of 48, creatinine at 3.05 (at new baseline established 01/05/2022), glucose 208, troponin 17.8 with repeat flat at 17.5, BNP 1589. CXR showed mild prominent central vasculature suggestive of possible congestion. EKG demonstrated sinus tachycardia with right bundle branch block. Pt was treated with hydromorphone, furosemide 20 mg, and ondansetron. Pt will be admitted to the hospital treatment of acute CHF exacerbation with IV diuretics . Acute HFrEF exacerbation. Elevated BNP (chronic), CXR suggestive of vascular congestion, dry cough, orthopnea, bilateral pitting edema, lungs clear today. Resolved. Initially treated with IV Lasix. Did not seem like overt heart failure. continue torsemide at home, check Daily weights, low-salt diet Anemia of chronic disease. Seems to be at baseline. Status post 1 unit PRBC Hypertension urgency. Long history of uncontrolled blood pressure. Continue amlodipine hydralazine and nifedipine. Elevated troponins. Flat Nausea and vomiting. Chronic. Continue home medications CKD stage 3. Baseline Diabetes mellitus with long history of poorly controlled diabetes. Treated with sliding scale, diabetic diet. Patient refused labs this morning. She will follow up with primary care provider for medication initiation needed. Time Spent with Patient Time attestation: Total time managing care of this patient today ____ minutes. Discharge coordination time: Greater than 30 minutes Quality: Safe Use of Opioids Does Pt have an Active Cancer Diagnosis on the Problem List?: No Quality: Stroke Does the patient have a stroke diagnosis?: No Physical Exam Vital Signs: Vital Signs: Last Vital Signs Temp 97.2 F 04/25/22 07:38 Pulse 91 04/25/22 07:38 Resp 18 04/25/22 07:38 BP 132/66 04/25/22 07:38 Pulse Ox 92 04/25/22 07:38 O2 Del Method 04/25/22 07:38 O2 Flow Rate 2 04/24/22 03:24 BMI result Body Mass Index 24.2 Appearing in no acute distress, blind head is normocephalic atraumatic mouth throat mucous membranes are intact and moist neck is supple no lymphadenopathy, no JVD noted lung sounds are clear to auscultation heart regular rate rhythm, clear S1, S2 positive bowel sounds, abdomen is soft, nontender neuro patient is alert x3, no focal deficits DS: Data Data Completed and Pending Completed studies during hospitalization [Text1]: Procedures Detachment at Right Foot, Partial 1st Ray, Open Approach (03/01/20) Detachment at Right Foot, Partial 2nd Ray, Open Approach (03/01/20) Detachment at Right Foot, Partial 3rd Ray, Open Approach (03/01/20) Detachment at Right Foot, Partial 4th Ray, Open Approach (03/01/20) Detachment at Right Foot, Partial 5th Ray, Open Approach (03/01/20) Drainage of Right Pleural Cavity, Percutaneous Approach (01/14/21) Insertion of Infusion Device into Superior Vena Cava, Percutaneous Approach (01/14/21) Removal of Infusion Device from Great Vessel, External Approach (01/14/21) Labs on day of discharge: Laboratory Results - last 24 hr 04/24/22 04/24/22 04/24/22 10:34 10:34 10:55 WBC 4.6 L RBC 2.67 L Hgb 7.3 L Hct 22.8 L MCV 85.4 MCH 27.3 MCHC 32.0 RDW 17.2 H Plt Count 193 MPV 12.0 Absolute Nucleated RBC 0.000 Nucleated RBC % (auto) 0.0 Sodium 135 Potassium 4.4 Chloride 107 Carbon Dioxide 23 Anion Gap 9 L BUN 44 H Creatinine 3.15 H Estim Creat Clear Calc 23.7 Estimated GFR 17 POC Glucose 126 H Random Glucose 131 H Calcium 8.2 L 04/24/22 04/24/22 04/25/22 14:58 19:17 07:28 WBC RBC Hgb Hct MCV MCH MCHC RDW Plt Count MPV Absolute Nucleated RBC Nucleated RBC % (auto) Sodium Potassium Chloride Carbon Dioxide Anion Gap BUN Creatinine Estim Creat Clear Calc Estimated GFR POC Glucose 115 91 108 Random Glucose Calcium Discharge Plan Discharge Anticipated Discharge Date/Time: 04/25/22 10:36 Patient Disposition: Home, Self-Care Discharge Diagnosis: Anemia CHF Discharge Medications: Continued nifedipine 30 mg tablet extended release 24hr 1 tab PO DAILY acetaminophen 325 mg tablet 650 mg PO Q4H PRN (Reason: Pain) torsemide 20 mg tablet 1 tab PO DAILY ondansetron HCl 4 mg tablet 1 tab PO Q8H PRN (Reason: nausea/vomiting) aspirin 81 mg tablet,delayed release (DR/EC) 2 tab PO DAILY pantoprazole 40 mg tablet,delayed release (DR/EC) 1 tab PO DAILY@0630 diclofenac sodium 1 % gel 1 applic topical QID hydralazine 10 mg Tablet 10 mg PO BID Qty: 60 0RF Protocol: Hold for SBP< HOLD for SBP < : 90 amlodipine 10 mg Tablet 10 mg PO DAILY Qty: 30 0RF Protocol: Hold for SBP< HOLD for SBP < : 90 hydromorphone 2 mg tablet 1 tab PO Q4H PRN (Reason: severe pain) metoclopramide HCl 5 mg tablet 1 tab PO QID PRN (Reason: Nausea And Vomiting) Discharge Orders: Discharge Order (Routine); Ordered 04/25/22 Ordered By: Tawny Taylor Diet: Advance to usual diet Activity on Discharge: As tolerated Stand Alone Forms: Patient Portal Discharge page Care Plan Goals: Complete resolution of symptoms Health Concerns: Anemia CHF Plan of Treatment: Follow-up with primary care provider as needed Take all medications as prescribed Assessment: See discharge summary
--- NOTE | 2022-04-25 10:48 | MHC.CM.PN ---
pt dcd home no skilled services ordered by
[2022-04-25 11:39] LABS: Glucose, Whole Blood 111 mg/dL (60-115)
--- NOTE | 2022-04-25 11:46 | P.CDIM_ITS ---
PROVIDER RESPONSE TEXT: To clarify, the appropriate diagnosis supported by the clinical indicators: Diabetic polyneuropathy: test QUERY TEXT: PHYSICIAN'S DOCUMENTATION REQUEST Date of Query: 04/25/2022 09:34 AM EST Patient Name: Shereen Taylor Admit Date: 04/22/2022 Dear Tawny Taylor, A review of the medical record indicates additional documentation may be needed. Please review below and update the documentation accordingly. Clinical Indicators: Specifics to the documented Diabetic neuropathy if known. The following diagnoses or signs and symptoms were noted in the patient record: Based on the above, could you clarify the appropriate diagnosis, if significant, that supports the ab ove abnormalities and additional evaluation, monitoring, and/or treatment rendered: Diabetic neuropathy Diabetic peripheral neuropathy Diabetic polyneuropathy Diabetic Autonomic neuropathy Other (explain) Clinically unable to determine (explain) Thank you, Betsey Metz, CCS, CDIS Use of terms such as suspected, likely, concern for, or probable (associated with a specific diagnosi s that is being evaluated, monitored, or treated as if it exists) are acceptable and can be coded in the inpatient se tting, when documented at the time of discharge. Please use your independent medical judgment in providing your response. THIS QUERY IS PART OF THE PERMANENT MEDICAL RECORD
[2022-04-25 12:00] VITALS: BP 148/57; PULSE 87; RESP 18; TEMP 36.6; O2SAT 96
== END 2022-04-25 14:36 | disposition home or self-care (01) | DRG 291 ==
LOC: HO.ED 06:34 → HO.EDOVER 12:18 → HO.IMC 19:27
PROVIDERS: Internal Medicine; Physician Assistant Medical; Admitting Provider Student in an Organized Health Care Education/Training Program; Emergency Provider Emergency Medicine; PCP Internal Medicine; Visit Provider Nurse Practitioner Acute Care
DX: I13.0 Hypertensive heart and chronic kidney disease with heart failure and stage 1 through stage 4 chronic kidney disease, or unspecified chronic kidney disease (principal); I50.23 Acute on chronic systolic (congestive) heart failure; H54.8 Legal blindness, as defined in USA; D63.1 Anemia in chronic kidney disease; E11.22 Type 2 diabetes mellitus with diabetic chronic kidney disease; I16.0 Hypertensive urgency; E11.42 Type 2 diabetes mellitus with diabetic polyneuropathy; N18.30 Chronic kidney disease, stage 3 unspecified; Z20.822 Contact with and (suspected) exposure to COVID-19; Z88.1 Allergy status to other antibiotic agents; Z79.82 Long term (current) use of aspirin; Z79.899 Other long term (current) drug therapy
CPT/HCPCS: 36415; 71045; 80048; 82947; 83735; 83880; 84484; 85025; 85027; 86850; 86900; 86901; 86923; 87635; 93005; 99285; J1170; J1940; J2405; P9016

== ENCOUNTER 2022-05-03 15:33 | Emergency (ER) | payer OTHER, SELFPAY ==
[2022-05-03 16:35] VITALS: BP 197/118; PULSE 103; RESP 16; TEMP 36.4; O2SAT 100; BMI 30.4
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
== END 2022-05-03 16:59 | disposition home or self-care (01) ==
LOC: HO.ED 16:47
PROVIDERS: Emergency Provider Emergency Medicine Emergency Medical Services
DX: S16.1XXA Strain of muscle, fascia and tendon at neck level, initial encounter (principal); S39.012A Strain of muscle, fascia and tendon of lower back, initial encounter; V43.62XA Car passenger injured in collision with other type car in traffic accident, initial encounter; Y93.89 Activity, other specified; Y92.414 Local residential or business street as the place of occurrence of the external cause; Y99.9 Unspecified external cause status
CPT/HCPCS: 99282; 99283

== ENCOUNTER 2022-05-10 15:51 | Inpatient (IN) | payer OTHER, SELFPAY ==
[2022-05-10] VITALS (9 sets, daily range): BP systolic 163–205; BP diastolic 96–124; PULSE 80–122; RESP 16–20; TEMP 36.7–37; O2SAT 94–100; BMI 28.8
--- NOTE | ~2022-05-10 | XR_ITS ---
EXAMINATION: XR CHEST CLINICAL INFORMATION: Shortness of breath. COMPARISON: Chest radiograph 04/22/2022. TECHNIQUE: Frontal view of the chest was obtained. FINDINGS: Stable prominence of the cardiomediastinal silhouette. Central vasculature engorgement with mild diffuse interstitial thickening. No focal infiltrate, pleural effusion or pneumothorax. No acute osseous abnormalities. The visualized upper abdomen is within normal limits. XR/XR chest 1V IMPRESSION: Central vasculature engorgement with mild interstitial thickening raising the possibility of pulmonary edema in the appropriate clinical context. Recommend clinical correlation for atypical/viral infections as these may manifest similarly.
--- NOTE | 2022-05-10 15:53 | ED.GENADULT ---
HPI - General Adult General Chief complaint: Chest Pain <JOVON Knox - Last Filed: 05/10/22 16:03> Stated complaint: /pain in ribs/chest pain/heart problems <JOVON Knox - Last Filed: 05/10/22 16:03> Time Seen by Provider: 05/10/22 16:14 <JOVON Knox - Last Filed: 05/10/22 16:03> Source: patient <Jessica Reed MD - Last Filed: 05/10/22 18:00> Mode of arrival: ambulatory <Jessica Reed MD - Last Filed: 05/10/22 18:00> Limitations: no limitations <Jessica Reed MD - Last Filed: 05/10/22 18:00> History of Present Illness HPI narrative: 31-year-old female wheelchair-bound, complicated DM 1, HTN, HFrEF, CKD 3, diabetic neuropathy, 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 Patient came in for 2 days of shortness of breath and coughing with severe chest pain with coughing. Patient declined fever or chills, no recent travel, no sick contacts. <Jessica Reed MD - Last Filed: 05/10/22 18:00> Related Data Home medications: Home Medications Medication Instructions Recorded Confirmed acetaminophen 325 mg tablet 650 mg PO Q4H PRN Pain 04/01/22 04/22/22 aspirin 81 mg tablet,delayed 2 tab PO DAILY 04/01/22 04/22/22 release diclofenac sodium 1 % topical gel 1 applic topical QID 04/01/22 04/22/22 nifedipine 30 mg tablet,extended 1 tab PO DAILY 04/01/22 04/22/22 release 24 hr ondansetron HCl 4 mg tablet 1 tab PO Q8H PRN nausea/vomiting 04/01/22 04/22/22 pantoprazole 40 mg tablet,delayed 1 tab PO DAILY@0630 04/01/22 04/22/22 release torsemide 20 mg tablet 1 tab PO DAILY 04/01/22 04/22/22 hydromorphone 2 mg tablet 1 tab PO Q4H PRN severe pain 04/22/22 04/22/22 metoclopramide HCl 5 mg tablet 1 tab PO QID PRN Nausea And 04/22/22 04/22/22 Vomiting Previous Rx's Medication Instructions Recorded amlodipine 10 mg tablet 10 mg PO DAILY #30 tabs 04/03/22 hydralazine 10 mg tablet 10 mg PO BID #60 tabs 04/03/22 cyclobenzaprine 10 mg tablet 10 mg PO TID PRN muscle spasm #14 05/03/22 tabs lidocaine 5 % topical patch 1 patch topical DAILY #15 ea 05/03/22 <JOVON Knox - Last Filed: 05/10/22 16:03> Allergies/adverse reactions: Allergies Allergy/AdvReac Type Severity Reaction Status Date / Time morphine [MORPHINE] Allergy Intermediate Itching Verified 05/10/22 15:55 azithromycin [From Zithromax] Allergy Hives Verified 05/10/22 15:55 gabapentin Allergy Facial Verified 05/10/22 15:55 Swelling tramadol Allergy Facial Verified 05/10/22 15:55 Swelling vancomycin Allergy Hives Verified 05/10/22 15:55 <JOVON Knox - Last Filed: 05/10/22 16:03> Review of Systems Review of Systems: All other systems are reviewed and are negative Constitutional: Reports as per HPI and Reports no additional constitutional complaints Eyes: Reports as per HPI and Reports no additional eye complaints Reports system reviewed and no additional complaints, except as documented Cardiovascular: Reports as per HPI and Reports no additional cardiovascular complaints Respiratory: Reports as per HPI and Reports no additional respiratory complaints Gastrointestinal: Reports as per HPI and Reports no additional gastrointestinal complaints Genitourinary: Reports no additional female genitourinary complaints Musculoskeletal: Reports no additional musculoskeletal complaints Skin/Breast: Reports system reviewed and no additional complaints, except as docu Psychiatric: Reports no additional psychiatric complaints Endocrine: Reports no additional endocrine complaints Hematologic/Lymphatic: Reports no additional hematologic/lymphatic complaints Allergic/Immunologic: Reports no additional allergic/immunologic complaints Reports system reviewed and no additional complaints, except as documented and Reports Abnormal speech present <Jessica Reed MD - Last Filed: 05/10/22 18:00> [facility] Past Medical History Medical History: Medical History Abnormal finding on echocardiogram Acute dyspnea Acute worsening of stage 3 chronic kidney disease MYNOR (acute kidney injury) Anemia Asthma Back pain Blind right eye Bone infection Cellulitis Cellulitis and abscess of foot Chest pain CHF (congestive heart failure) CKD (chronic kidney disease) Depression with anxiety Diabetes Diabetic retinopathy DM foot ulcer Elevated troponin Essential hypertension Fever Generalized edema HTN (hypertension) Migraine Osteomyelitis PAD (peripheral artery disease) Pleural effusion test positive test positive Sepsis Severe anemia Tachycardia Type 2 diabetes mellitus with hyperglycemia, with long-term current use of insulin <JOVON Knox - Last Filed: 05/10/22 16:03> Surgical History: Surgical History History of transmetatarsal amputation of foot S/P transmetatarsal amputation of foot <JOVON Knox - Last Filed: 05/10/22 16:03> Family History Family History: Family History Mother Coronary artery disease Myocardial infarction Stroke Diabetes mellitus Father Myocardial infarction <JOVON Knox - Last Filed: 05/10/22 16:03> Social History Social History: Social History Household Members: Significant Other Household Members Other:: Sister, Ctzviyl-ag-Gum, nephew Housing: Apartment Do you presently have visiting nurse or other home services: Yes ([employer]) Alcohol intake: never Patient Tobacco Use Status: Never used Tobacco Smoked in Last 30 Days: No e-Cigarette/Vaping Use: Never Used Second Hand Smoke Exposure: No Use of substances other than those prescribed or required for medical reasons: No Any prior treatment program specific to substance use: No Advance Directives: No Advance Directives Information Provided: No Advance Directives Date on File: 03/08/20 Patient : No service: No Current occupational status: unemployed and disabled Gender identity: Female <JOVON Knox - Last Filed: 05/10/22 16:03> Physical Exam ED Vital Signs: Vital Signs - 24 hr 05/10/22 15:55 05/10/22 16:42 05/10/22 16:50 Temperature 98.2 F Pulse Rate 105 H 106 H 102 H Respiratory Rate 16 16 20 Blood Pressure 197/121 H 163/96 H Pulse Oximetry 99 98 Oxygen Delivery Method Room Air Room Air 05/10/22 17:21 05/10/22 17:35 Temperature Pulse Rate 113 H 122 H Respiratory Rate 20 Blood Pressure 180/104 H 205/124 H Pulse Oximetry 100 97 Oxygen Delivery Method Room Air Room Air BMI result Body Mass Index 28.8 <JOVON Knox - Last Filed: 05/10/22 16:03> Vital Signs - 24 hr 05/10/22 15:55 05/10/22 16:42 05/10/22 16:50 Temperature 98.2 F Pulse Rate 105 H 106 H 102 H Respiratory Rate 16 16 20 Blood Pressure 197/121 H 163/96 H Pulse Oximetry 99 98 Oxygen Delivery Method Room Air Room Air 05/10/22 17:21 05/10/22 17:35 Temperature Pulse Rate 113 H 122 H Respiratory Rate 20 Blood Pressure 180/104 H 205/124 H Pulse Oximetry 100 97 Oxygen Delivery Method Room Air Room Air BMI result Body Mass Index 28.8 Vital signs have been reviewed as appeared to be correct. Blood pressure elevated. Heart rate elevated. Respiration rate normal. Temperature normal. Oxygen saturation normal. <Jessica Reed MD - Last Filed: 05/10/22 18:00> Appearance: Alert. Oriented X3. No acute distress. Head: Normal external exam. Normocephalic. Atraumatic. No Lynn signs noted. No raccoon eyes noted Eyes: PERRLA. EOMI. Conjunctiva and sclera normal. Eyelids normal. ENT: TM's Normal. Pharynx normal. Uvula midline. Moist mucous membranes. No trismus noted. No drooling noted. No muffled voice noted. Neck: Normal inspection. Neck supple. FROM. No adenopathy. Thyroid Normal. No meningeal signs. No neck mass noted. CVS: Normal heart rate and rhythm. Heart sound normal. No murmurs noted. Pulses normal throughout. Respiratory: No respiratory distress. Painless inspiration. Breath sounds normal. No wheezes/rales/rhonchi noted. Chest nontender. No accessory muscle usage noted or decreased air movement noted. Abdomen: Soft and nontender. Bowel sounds normal in all 4 quadrants. No distention noted. No organomegaly noted. No visible injury noted. Back: No CVA tenderness. Full range of motion noted. Skin: Skin warm and dry. Normal skin color. Normal skin turgor. No rashes/lesions/lacerations noted. Extremities: +2 lower extremity edema bilaterally. Extremities exhibit normal range of motion. Extremities nontender. Neuro: Oriented X 3. Cranial nerve exam: II-XII are grossly intact No motor deficit. No sensory deficit. Reflexes normal. <Jessica Reed MD - Last Filed: 05/10/22 18:00> Course Course Course Narrative: PRABHU-- 31 yo wheelchair bound female with history of DM1 with multiple complications including multiple toe amputations, legally blind, CHF, HTN, asthma, c/o chest tightness, palpitations and SOB x2 days. Also reports pedal edema, abdominal pain and nausea HTNsive in triage 197/121, denies taking BP meds today Abd soft +diffusely ttp, +1 b/l pitting edema, lungs CTA Charge nurse aware, full eval to be perfromed by main ED provider <JOVON Knox - Last Filed: 05/10/22 16:03> Reevaluation(s) Reevaluation #1: CHF and fluid overload will diurese, Dilaudid for chest pain, bronchodilator p.r.n. wheezing. <Jessica Reed MD - Last Filed: 05/10/22 18:00> Time: 17:57 <Jessica Reed MD - Last Filed: 05/10/22 18:00> Medications Administered Discontinued Medications Generic Name Dose Route Start Last Admin Trade Name Momoq PRN Reason Stop Dose Admin Albuterol Sulfate 7.5 mg 05/10/22 16:24 05/10/22 16:49 Albuterol Sulfate (0.083%) 2.5 Mg/3 Ml Vial.Neb INHALE 05/10/22 16:25 5 mg ONCE ONE Administration Furosemide 20 mg 05/10/22 16:24 05/10/22 16:35 Furosemide 20 Mg/2 Ml Vial IVPUSH 05/10/22 16:25 20 mg ONCE ONE Administration Protocol Guaifenesin/Codeine Phosphate 10 ml 05/10/22 16:26 05/10/22 16:34 Guaifen/Codeine Sf 200/20/10ml 10 Ml Liquid PO 05/10/22 16:27 10 ml ONCE ONE Administration Hydromorphone HCl 1 mg 05/10/22 17:28 05/10/22 17:34 Hydromorphone Hcl 1 Mg/Ml Syringe IVPUSH 05/10/22 17:29 1 mg ONCE ONE Administration Protocol Methylprednisolone Sodium Succinate 125 mg 05/10/22 16:24 05/10/22 16:34 Methylprednisolone Sod Succ 125 Mg/2 Ml Vial IVPUSH 05/10/22 16:25 125 mg ONCE ONE Administration Nitroglycerin 0.5 inch 05/10/22 16:24 05/10/22 16:34 Nitroglycerin 2 % Oint 1 Gm Packet TRANSDERMA 05/10/22 16:25 0.5 inch ONCE ONE Administration <JOVON Knox - Last Filed: 05/10/22 16:03> Medications Administered Discontinued Medications Generic Name Dose Route Start Last Admin Trade Name Freq PRN Reason Stop Dose Admin Albuterol Sulfate 7.5 mg 05/10/22 16:24 05/10/22 16:49 Albuterol Sulfate (0.083%) 2.5 Mg/3 Ml Vial.Neb INHALE 05/10/22 16:25 5 mg ONCE ONE Administration Furosemide 20 mg 05/10/22 16:24 05/10/22 16:35 Furosemide 20 Mg/2 Ml Vial IVPUSH 05/10/22 16:25 20 mg ONCE ONE Administration Protocol Guaifenesin/Codeine Phosphate 10 ml 05/10/22 16:26 05/10/22 16:34 Guaifen/Codeine Sf 200/20/10ml 10 Ml Liquid PO 05/10/22 16:27 10 ml ONCE ONE Administration Hydromorphone HCl 1 mg 05/10/22 17:28 05/10/22 17:34 Hydromorphone Hcl 1 Mg/Ml Syringe IVPUSH 05/10/22 17:29 1 mg ONCE ONE Administration Protocol Methylprednisolone Sodium Succinate 125 mg 05/10/22 16:24 05/10/22 16:34 Methylprednisolone Sod Succ 125 Mg/2 Ml Vial IVPUSH 05/10/22 16:25 125 mg ONCE ONE Administration Nitroglycerin 0.5 inch 05/10/22 16:24 05/10/22 16:34 Nitroglycerin 2 % Oint 1 Gm Packet TRANSDERMA 05/10/22 16:25 0.5 inch ONCE ONE Administration <Jessica Reed MD - Last Filed: 05/10/22 18:00> Medical Decision Making Differential Diagnosis Differential Diagnoses: The differential diagnosis associated with the presentation includes (ACS, chest wall contusion, pneumonia, infection, CHF, acute on chronic renal insufficiency, electrolyte disturbance.) <Jessica Reed MD - Last Filed: 05/10/22 18:00> Admission/Observation Consideration of admission/observation: Escalation of care including admission/observation considered <Jessica Reed MD - Last Filed: 05/10/22 18:00> Consult Healthcare Provider Management of the patient was discussed with: Hospitalist <Jessica Reed MD - Last Filed: 05/10/22 18:00> Lab Data MDM Lab Attestation statement: I reviewed the patient's lab results. <Jessica Reed MD - Last Filed: 05/10/22 18:00> Result Diagrams: 05/10/22 16:30 05/10/22 16:30 <JOVON Knox - Last Filed: 05/10/22 16:03> Labs: Lab Results 05/10/22 05/10/22 05/10/22 Range/Units 16:30 16:30 16:30 WBC 6.3 (4.8-10.8) X10*3/uL RBC 2.99 L (4.20-5.50) X10*6/uL Hgb 8.3 L (12.0-16.0) g/dl Hct 25.7 L (37.0-47.0) % MCV 86.0 (80.0-98.0) fL MCH 27.8 (27.0-33.0) pg MCHC 32.3 (31.0-35.0) g/dl RDW 17.1 H (11.0-16.0) % Plt Count 204 (160-400) X10*3/uL MPV 11.6 (9.4-12.3) fL Immature Gran % (Auto) 0.3 (0.0-0.4) % Neut % (Auto) 80.1 H (45-73) % Lymph % (Auto) 13.4 L (20-40) % [place] % (Auto) 3.7 (2-11) % Eos % (Auto) 1.9 (0-4) % Baso % (Auto) 0.6 (0-2) % Lymph # (Auto) 0.8 L (1.2-4.9) X10*3/uL [place] # (Auto) 0.2 (0.1-1.2) X10*3/uL Eos # (Auto) 0.1 (0.0-0.4) X10*3/uL Baso # (Auto) 0.0 (0.0-0.2) X10*3/uL Abs Immat Gran (auto) 0.02 (0.00-0.03) X10*3/uL Absolute Neuts (auto) 5.0 (2.0-8.3) x10*3/uL Absolute Nucleated RBC 0.000 (0.0-0.012) X10*3/uL Nucleated RBC % (auto) 0.0 (0.0-0.2) /100WBC PT 12.4 (10.0-13.1) SEC INR 1.1 (0.9-1.1) Sodium 138 (135-145) mmol/L Potassium 4.0 (3.3-5.1) mmol/L Chloride 109 H (96-108) mmol/L Carbon Dioxide 19 L (22-29) mmol/L Anion Gap 14 (12-20) BUN 41 H (9-16) mg/dL Creatinine 3.11 H (0.5-1.4) mg/dL Estim Creat Clear Calc 29.5 Estimated GFR 17 Random Glucose 153 H (60-115) mg/dL Lactic Acid (0.5-2.0) mmol/L Calcium 8.3 L (8.4-10.2) mg/dL Magnesium 2.0 (1.6-2.6) mg/dL Total Bilirubin 1.4 H (0.0-1.0) mg/dL Direct Bilirubin 0.4 (0.0-0.5) mg/dL AST 20 (5-31) U/L ALT 23 (0-31) U/L Alkaline Phosphatase 84 (39-117) U/L Troponin I High Sens (<3.5-17.0) ng/L B-Natriuretic Peptide (<100) pg/mL Total Protein 6.3 L (6.5-8.0) g/dL Albumin 3.0 L (3.5-5.0) g/dL Lipase 19 (8-78) U/L COVID-19 (CARO) (Negative) COVID-19 Clin Com Influenza Type A ([facility]) (Negative) Influenza Type B ([facility]ILTON) (Negative) Influenza A & B Note 05/10/22 05/10/22 05/10/22 Range/Units 16:30 16:30 16:30 WBC (4.8-10.8) X10*3/uL RBC (4.20-5.50) X10*6/uL Hgb (12.0-16.0) g/dl Hct (37.0-47.0) % MCV (80.0-98.0) fL MCH (27.0-33.0) pg MCHC (31.0-35.0) g/dl RDW (11.0-16.0) % Plt Count (160-400) X10*3/uL MPV (9.4-12.3) fL Immature Gran % (Auto) (0.0-0.4) % Neut % (Auto) (45-73) % Lymph % (Auto) (20-40) % [place] % (Auto) (2-11) % Eos % (Auto) (0-4) % Baso % (Auto) (0-2) % Lymph # (Auto) (1.2-4.9) X10*3/uL [place] # (Auto) (0.1-1.2) X10*3/uL Eos # (Auto) (0.0-0.4) X10*3/uL Baso # (Auto) (0.0-0.2) X10*3/uL Abs Immat Gran (auto) (0.00-0.03) X10*3/uL Absolute Neuts (auto) (2.0-8.3) x10*3/uL Absolute Nucleated RBC (0.0-0.012) X10*3/uL Nucleated RBC % (auto) (0.0-0.2) /100WBC PT (10.0-13.1) SEC INR (0.9-1.1) Sodium (135-145) mmol/L Potassium (3.3-5.1) mmol/L Chloride (96-108) mmol/L Carbon Dioxide (22-29) mmol/L Anion Gap (12-20) BUN (9-16) mg/dL Creatinine (0.5-1.4) mg/dL Estim Creat Clear Calc Estimated GFR Random Glucose (60-115) mg/dL Lactic Acid (0.5-2.0) mmol/L Calcium (8.4-10.2) mg/dL Magnesium (1.6-2.6) mg/dL Total Bilirubin (0.0-1.0) mg/dL Direct Bilirubin (0.0-0.5) mg/dL AST (5-31) U/L ALT (0-31) U/L Alkaline Phosphatase (39-117) U/L Troponin I High Sens 13.8 (<3.5-17.0) ng/L B-Natriuretic Peptide 2870 H (<100) pg/mL Total Protein (6.5-8.0) g/dL Albumin (3.5-5.0) g/dL Lipase (8-78) U/L COVID-19 (CARO) (Negative) COVID-19 Clin Com Influenza Type A ([facility]ILTON) Negative (Negative) Influenza Type B (MILTON) Negative (Negative) Influenza A & B Note See Note 05/10/22 05/10/22 Range/Units 16:30 16:30 WBC (4.8-10.8) X10*3/uL RBC (4.20-5.50) X10*6/uL Hgb (12.0-16.0) g/dl Hct (37.0-47.0) % MCV (80.0-98.0) fL MCH (27.0-33.0) pg MCHC (31.0-35.0) g/dl RDW (11.0-16.0) % Plt Count (160-400) X10*3/uL MPV (9.4-12.3) fL Immature Gran % (Auto) (0.0-0.4) % Neut % (Auto) (45-73) % Lymph % (Auto) (20-40) % [place] % (Auto) (2-11) % Eos % (Auto) (0-4) % Baso % (Auto) (0-2) % Lymph # (Auto) (1.2-4.9) X10*3/uL [place] # (Auto) (0.1-1.2) X10*3/uL Eos # (Auto) (0.0-0.4) X10*3/uL Baso # (Auto) (0.0-0.2) X10*3/uL Abs Immat Gran (auto) (0.00-0.03) X10*3/uL Absolute Neuts (auto) (2.0-8.3) x10*3/uL Absolute Nucleated RBC (0.0-0.012) X10*3/uL Nucleated RBC % (auto) (0.0-0.2) /100WBC PT (10.0-13.1) SEC INR (0.9-1.1) Sodium (135-145) mmol/L Potassium (3.3-5.1) mmol/L Chloride (96-108) mmol/L Carbon Dioxide (22-29) mmol/L Anion Gap (12-20) BUN (9-16) mg/dL Creatinine (0.5-1.4) mg/dL Estim Creat Clear Calc Estimated GFR Random Glucose (60-115) mg/dL Lactic Acid 0.8 (0.5-2.0) mmol/L Calcium (8.4-10.2) mg/dL Magnesium (1.6-2.6) mg/dL Total Bilirubin (0.0-1.0) mg/dL Direct Bilirubin (0.0-0.5) mg/dL AST (5-31) U/L ALT (0-31) U/L Alkaline Phosphatase (39-117) U/L Troponin I High Sens (<3.5-17.0) ng/L B-Natriuretic Peptide (<100) pg/mL Total Protein (6.5-8.0) g/dL Albumin (3.5-5.0) g/dL Lipase (8-78) U/L COVID-19 (CARO) Negative (Negative) COVID-19 Clin Com See Note Influenza Type A ([facility]TON) (Negative) Influenza Type B ([facility]) (Negative) Influenza A & B Note <JOVON Knox - Last Filed: 05/10/22 16:03> Lab Results 05/10/22 05/10/22 05/10/22 Range/Units 16:30 16:30 16:30 WBC 6.3 (4.8-10.8) X10*3/uL RBC 2.99 L (4.20-5.50) X10*6/uL Hgb 8.3 L (12.0-16.0) g/dl Hct 25.7 L (37.0-47.0) % MCV 86.0 (80.0-98.0) fL MCH 27.8 (27.0-33.0) pg MCHC 32.3 (31.0-35.0) g/dl RDW 17.1 H (11.0-16.0) % Plt Count 204 (160-400) X10*3/uL MPV 11.6 (9.4-12.3) fL Immature Gran % (Auto) 0.3 (0.0-0.4) % Neut % (Auto) 80.1 H (45-73) % Lymph % (Auto) 13.4 L (20-40) % [place] % (Auto) 3.7 (2-11) % Eos % (Auto) 1.9 (0-4) % Baso % (Auto) 0.6 (0-2) % Lymph # (Auto) 0.8 L (1.2-4.9) X10*3/uL [place] # (Auto) 0.2 (0.1-1.2) X10*3/uL Eos # (Auto) 0.1 (0.0-0.4) X10*3/uL Baso # (Auto) 0.0 (0.0-0.2) X10*3/uL Abs Immat Gran (auto) 0.02 (0.00-0.03) X10*3/uL Absolute Neuts (auto) 5.0 (2.0-8.3) x10*3/uL Absolute Nucleated RBC 0.000 (0.0-0.012) X10*3/uL Nucleated RBC % (auto) 0.0 (0.0-0.2) /100WBC PT 12.4 (10.0-13.1) SEC INR 1.1 (0.9-1.1) Sodium 138 (135-145) mmol/L Potassium 4.0 (3.3-5.1) mmol/L Chloride 109 H (96-108) mmol/L Carbon Dioxide 19 L (22-29) mmol/L Anion Gap 14 (12-20) BUN 41 H (9-16) mg/dL Creatinine 3.11 H (0.5-1.4) mg/dL Estim Creat Clear Calc 29.5 Estimated GFR 17 Random Glucose 153 H (60-115) mg/dL Lactic Acid (0.5-2.0) mmol/L Calcium 8.3 L (8.4-10.2) mg/dL Magnesium 2.0 (1.6-2.6) mg/dL Total Bilirubin 1.4 H (0.0-1.0) mg/dL Direct Bilirubin 0.4 (0.0-0.5) mg/dL AST 20 (5-31) U/L ALT 23 (0-31) U/L Alkaline Phosphatase 84 (39-117) U/L Troponin I High Sens (<3.5-17.0) ng/L B-Natriuretic Peptide (<100) pg/mL Total Protein 6.3 L (6.5-8.0) g/dL Albumin 3.0 L (3.5-5.0) g/dL Lipase 19 (8-78) U/L COVID-19 (CARO) (Negative) COVID-19 Clin Com Influenza Type A ([facility]) (Negative) Influenza Type B ([facility]) (Negative) Influenza A & B Note 05/10/22 05/10/22 05/10/22 Range/Units 16:30 16:30 16:30 WBC (4.8-10.8) X10*3/uL RBC (4.20-5.50) X10*6/uL Hgb (12.0-16.0) g/dl Hct (37.0-47.0) % MCV (80.0-98.0) fL MCH (27.0-33.0) pg MCHC (31.0-35.0) g/dl RDW (11.0-16.0) % Plt Count (160-400) X10*3/uL MPV (9.4-12.3) fL Immature Gran % (Auto) (0.0-0.4) % Neut % (Auto) (45-73) % Lymph % (Auto) (20-40) % [place] % (Auto) (2-11) % Eos % (Auto) (0-4) % Baso % (Auto) (0-2) % Lymph # (Auto) (1.2-4.9) X10*3/uL [place] # (Auto) (0.1-1.2) X10*3/uL Eos # (Auto) (0.0-0.4) X10*3/uL Baso # (Auto) (0.0-0.2) X10*3/uL Abs Immat Gran (auto) (0.00-0.03) X10*3/uL Absolute Neuts (auto) (2.0-8.3) x10*3/uL Absolute Nucleated RBC (0.0-0.012) X10*3/uL Nucleated RBC % (auto) (0.0-0.2) /100WBC PT (10.0-13.1) SEC INR (0.9-1.1) Sodium (135-145) mmol/L Potassium (3.3-5.1) mmol/L Chloride (96-108) mmol/L Carbon Dioxide (22-29) mmol/L Anion Gap (12-20) BUN (9-16) mg/dL Creatinine (0.5-1.4) mg/dL Estim Creat Clear Calc Estimated GFR Random Glucose (60-115) mg/dL Lactic Acid (0.5-2.0) mmol/L Calcium (8.4-10.2) mg/dL Magnesium (1.6-2.6) mg/dL Total Bilirubin (0.0-1.0) mg/dL Direct Bilirubin (0.0-0.5) mg/dL AST (5-31) U/L ALT (0-31) U/L Alkaline Phosphatase (39-117) U/L Troponin I High Sens 13.8 (<3.5-17.0) ng/L B-Natriuretic Peptide 2870 H (<100) pg/mL Total Protein (6.5-8.0) g/dL Albumin (3.5-5.0) g/dL Lipase (8-78) U/L COVID-19 (CARO) (Negative) COVID-19 Clin Com Influenza Type A ([facility]) Negative (Negative) Influenza Type B ([facility]) Negative (Negative) Influenza A & B Note See Note 05/10/22 05/10/22 Range/Units 16:30 16:30 WBC (4.8-10.8) X10*3/uL RBC (4.20-5.50) X10*6/uL Hgb (12.0-16.0) g/dl Hct (37.0-47.0) % MCV (80.0-98.0) fL MCH (27.0-33.0) pg MCHC (31.0-35.0) g/dl RDW (11.0-16.0) % Plt Count (160-400) X10*3/uL MPV (9.4-12.3) fL Immature Gran % (Auto) (0.0-0.4) % Neut % (Auto) (45-73) % Lymph % (Auto) (20-40) % [place] % (Auto) (2-11) % Eos % (Auto) (0-4) % Baso % (Auto) (0-2) % Lymph # (Auto) (1.2-4.9) X10*3/uL [place] # (Auto) (0.1-1.2) X10*3/uL Eos # (Auto) (0.0-0.4) X10*3/uL Baso # (Auto) (0.0-0.2) X10*3/uL Abs Immat Gran (auto) (0.00-0.03) X10*3/uL Absolute Neuts (auto) (2.0-8.3) x10*3/uL Absolute Nucleated RBC (0.0-0.012) X10*3/uL Nucleated RBC % (auto) (0.0-0.2) /100WBC PT (10.0-13.1) SEC INR (0.9-1.1) Sodium (135-145) mmol/L Potassium (3.3-5.1) mmol/L Chloride (96-108) mmol/L Carbon Dioxide (22-29) mmol/L Anion Gap (12-20) BUN (9-16) mg/dL Creatinine (0.5-1.4) mg/dL Estim Creat Clear Calc Estimated GFR Random Glucose (60-115) mg/dL Lactic Acid 0.8 (0.5-2.0) mmol/L Calcium (8.4-10.2) mg/dL Magnesium (1.6-2.6) mg/dL Total Bilirubin (0.0-1.0) mg/dL Direct Bilirubin (0.0-0.5) mg/dL AST (5-31) U/L ALT (0-31) U/L Alkaline Phosphatase (39-117) U/L Troponin I High Sens (<3.5-17.0) ng/L B-Natriuretic Peptide (<100) pg/mL Total Protein (6.5-8.0) g/dL Albumin (3.5-5.0) g/dL Lipase (8-78) U/L COVID-19 ([facility]) Negative (Negative) COVID-19 Clin Com See Note Influenza Type A ([facility]) (Negative) Influenza Type B ([facility]) (Negative) Influenza A & B Note <Jessica Reed MD - Last Filed: 05/10/22 18:00> Independent Interpretation I performed an independent interpretation of an: Plain X-Ray (Chest: Pulmonary edema) <Jessica Reed MD - Last Filed: 05/10/22 18:00> Radiology Impression Discussion of test interpretation with radiology: I have reviewed the radiologist's reading. <Jessica Reed MD - Last Filed: 05/10/22 18:00> Chronic Conditions Patient?s care impacted by: Diabetes and Hypertension <Jessica Reed MD - Last Filed: 05/10/22 18:00> Critical Care Time Critical Care Time Critical Care Time: Yes <Jessica Reed MD - Last Filed: 05/10/22 18:00> Total Critical Care Time: 60 <Jessica Reed MD - Last Filed: 05/10/22 18:00> Attestation: I spent 60 minutes providing critical care service to the patient, this including time spent at the bedside to evaluate the patient, reassess the patient, monitoring vital signs, review labs, and radiographic studies, counseling the patient/family, discussing the case with consultants, disposition the patient. <Jessica Reed MD - Last Filed: 05/10/22 18:00> Discharge Plan Discharge Clinical Impression: Chest pain, CHF (congestive heart failure), Hypertension <JOVON Knox - Last Filed: 05/10/22 16:03> Patient Disposition: Admitted As Inpatient <JOVON Knox - Last Filed: 05/10/22 16:03>
--- NOTE | 2022-05-10 16:00 | ECG_ITS ---
Test Reason : CHEST PAIN Blood Pressure : / mmHG Vent. Rate : 104 BPM Atrial Rate : 104 BPM P-R Int : 146 ms QRS Dur : 132 ms QT Int : 406 ms P-R-T Axes : 066 023 004 degrees QTc Int : 533 ms Sinus tachycardia Possible Left atrial enlargement Right bundle branch block Abnormal ECG When compared with ECG of 22-APR-2022 02:15, No significant change was found Referred By: Urszula Garcia Electronically Signed By:Vinny Vera
[2022-05-10] MEDS: guaiFEN/Codeine SF 200/20/10ML 10 ML LIQUID PO ×2 (16:34→20:45)
[2022-05-10] MEDS: Nitroglycerin 2 % Oint 1 GM Packet 0.5 INCH TRANSDERMA (16:34)
[2022-05-10] MEDS: methylPREDNISolone Sod Succ 125 MG/2 ML VIAL IVPUSH (16:34)
[2022-05-10] MEDS: Furosemide 20 MG/2 ML VIAL IVPUSH (16:35)
[2022-05-10 16:39] LABS: MANUAL DIFF FLAG NO
[2022-05-10 16:48] LABS: Basophils Percent Auto 0.6 % (0-2); Eosinophils Absolute Auto 0.1 X10*3/uL (0.0-0.4); Eosinophils Percent Auto 1.9 % (0-4); Hematocrit 25.7 % (37.0-47.0); Hemoglobin 8.3 g/dl (12.0-16.0); Imm Gran Abs Auto 0.02 X10*3/uL (0.00-0.03); Imm Gran Pct Auto 0.3 % (0.0-0.4); Lymphocytes Absolute Auto 0.8 X10*3/uL (1.2-4.9); Lymphocytes Percent Auto 13.4 % (20-40); Mean Corpuscular HGB Conc 32.3 g/dl (31.0-35.0); Mean Corpuscular Hemoglobin 27.8 pg (27.0-33.0); Mean Platelet Volume 11.6 fL (9.4-12.3); Monocytes Absolute Auto 0.2 X10*3/uL (0.1-1.2); Monocytes Percent Auto 3.7 % (2-11); Neutrophils Percent Auto 80.1 % (45-73); Platelet Count 204 X10*3/uL (160-400); Red Blood Count 2.99 X10*6/uL (4.20-5.50); Red Cell Distribution Width 17.1 % (11.0-16.0); White Blood Count 6.3 X10*3/uL (4.8-10.8)
[2022-05-10 16:49] LABS: INTERNATIONAL NORM RATIO 1.1 (0.9-1.1); Prothrombin Time 12.4 SEC (10.0-13.1)
[2022-05-10] MEDS: Albuterol Sulfate (0.083%) 2.5 MG/3 ML VIAL.NEB 7.5 MG INHALE (16:49)
[2022-05-10 16:51] LABS: Lactic Acid 0.8 mmol/L (0.5-2.0)
[2022-05-10 16:57] LABS: Alanine Aminotransferase 23 U/L (0-31); Alkaline Phosphatase 84 U/L (39-117); Anion Gap 14 (12-20); Aspartate Amino Transferase 20 U/L (5-31); Bilirubin Direct 0.4 mg/dL (0.0-0.5); Bilirubin Total 1.4 mg/dL (0.0-1.0); Blood Urea Nitrogen 41 mg/dL (9-16); Calcium 8.3 mg/dL (8.4-10.2); Carbon Dioxide 19 mmol/L (22-29); Chloride 109 mmol/L (96-108); Creatinine Clr Calc Pharmacy 29.5; Estimated Glomerular Filt Rate 17; Glucose Random 153 mg/dL (60-115); Lipase 19 U/L (8-78); Sodium 138 mmol/L (135-145); Total Protein 6.3 g/dL (6.5-8.0)
--- OUTSIDE RECORDS SUMMARY | 2022-05-10 16:58 | XMS_ITS | Continuity of Care Document ---
:1990 Author Organization [facility] ic Address [address] [place] [id number]- Care Team Providers Name Role Phone Abdon Beard MD Primary Care Physician Encounter [facility] Date(s): 03/06/22 - 04/05/[address] [id number] Allergies, Adverse Reactions, Alerts Substance Reaction Severity Status vancomycin1, 2 Tightness in throat Active morphine Itching Active gabapentin Itching of tongue Severe Active traMADol Itching of tongue Severe Active Zosyn3 angioedema Severe Active 1Tolerates again [...] '943Admin Note: TD4 Admin Note: unknown exact [id number] Note: unknown exact date Medications acetaminophen 325 mg oral capsule 2 capsule = 650 mg, By Mouth, Every 4 hours, PRN as needed for pain, # 90 capsule, 0 Refills, Acute 03/31/23 8:01:00 EST, 03/30/22 8:01:00 EST, Capsule, [facility]/pharmacy #[id number], Partial fill [...] 03/29/22 12:12:00 EST, [facility] 03/29/22 12:11:00 EST, [facility] to [facility], [facility] [...] 0 Refills, Maintenance, 03/30/22 8:01:00 EST, Gel, [facility]/pharmacy #[id number], Partial fill upon patient request if the prescription is for a schedule II opioid drug., 168, cm, 03/29/22 10:53:00 EST, Height, 87.4, k... Start Date: 03/30/22 Status: OrderedFlonase 50 mcg/inh nasal spray 1 sprays, Nares, Both, 2 times a day, # 16 Gm, 0 Refills, Maintenance, 03/10/22 13:15:00 EST, [place],[facility], Partial fill upon patient request if the prescription is for a schedule IIopioid drug., 1 sprays Nares, Both 2 times a day,... Start Date: 03/10/22 Status: OrderedLevemir FlexTouch 100 units/mL subcutaneous solution = 8 units, Subcutaneous Injection, Daily at bedtime, (NOT TAKING & HASN'T IN MONTHS), # 10 mL, 0Refills, Maintenance, 03/10/22 13:13:00 EST, Injection, [facility], Partial fill upon patient request if the prescription is for a schedule... Start Date: 03/10/22 Status: OrderedNIFEdipine 30 mg oral tablet, extended release 30 mg, 1, tablet, By Mouth, Daily, # 30 tablet, Refills 0, Tot. Refills 0, Maintenance, 03/10/22 13:15:00 EST, Route to Pharmacy Electronically, [facility], Partial fill upon patient request if the prescription is for a schedule II opioi... Start Date: 03/10/22 Stop Date: 04/09/22 Status: OrderedNovoLOG FlexPen 100 units/mL injectable solution 11-12 UNITS, Subcutaneous Injection, 3 times a day before meals, (NOT TAKING & HASN'T IN MONTHS), # 10 mL, 0 Refills, Maintenance, 03/10/22 13:12:00 EST, Injection, [facility], Partial fill upon patient request if the prescription is for... Start Date: 03/10/22 Status: Orderedondansetron 4 mg oral tablet 1 tablet = 4 mg, By Mouth, Every 8 hours, PRN Nausea & Vomiting, # 12 tablet, 0 Refills, Maintenance, 03/10/22 13:16:00 EST, Tablet, [facility], Partial fill upon patient request [...] Dry Weight Start Date: 03/10/22 Status: OrderedPen [place], 31 G x 5 mm BD Ultra [...] 0 Refills, Maintenance, 03/10/22 13:14:00 EST, Tablet, [facility], Partial fill upon patient [...] Dr Matt Gutierrez by pharmacy records.4Managed by [email or web address] by PCP with Tylenol Social History Social History Type Response Smoking Status Never (less than 100 in life time) entered on: 08/22/21 Sex Patient Care team information Care Team PersonnelName: Anuradha Morris RN Position: [facility] RN Member Role: Primary Care Nurse Name: Samantha Reynolds RN Position: S RN Member Role: Primary Care Nurse Name: Omega Gillespie RN Position: [facility] RN Member Role: Primary Care Nurse Name: Paty Kelly RN Position: [facility] RN Member Role: Primary Care Nurse Name: Sonia Malone Position: [facility] RN Member Role: Primary Care Nurse Name: Keira Desai RN Position: [facility] RN Member Role: Primary Care Nurse Name: Gomez Moseley RN Position: [facility] RN Supv Member Role: Primary Care Nurse Name: Vashti Bruce RN Position: [facility] RN Member Role: Primary Care Nurse Name: Raghav Granger Position: [facility] RN Member Role: Primary Care Nurse Name: Cassy Caraballo RN Position: [facility] RN Member Role: Primary Care Nurse Name: Jodi Carrillo RN Position: [facility] RN Member Role: Primary Care Nurse Name: Abbey Shelley RN Position: [facility] RN Member Role: Primary Care Nurse Name: Larissa Barnett RN Position: [facility] RN Member Role: Primary Care Nurse Name: Inna Beckwith RN Position: [facility] RN Member Role: Primary Care Nurse Name: Cady Araya RN Position: [facility] RN Member Role: Primary Care Nurse Name: Abdon Beard MD Position: [facility] Outreach Member Role: PCP Address: Address: [address] [place] [address]- Name: Anuradha Frank Position: [facility] RN Member Role: Primary Care Nurse Name: Michele Blancas DO Position: [facility] Renal MD Member Role: Lifetime Consulting Physician Address: Address: [address] [place] [address] [address] [facility] [place] [address]- Name: María Acosta RN Position: [facility] RN Member Role: Primary Care Nurse Name: Treasure Gilbert RN Position: [facility] RN Supv Member Role: Primary Care Nurse Name: Stefany Grajeda RN Position: [facility] RN Member Role: Primary Care Nurse Name: Farzana Sevilla Position: [facility] RN Member Role: Primary Care Nurse Name: Javan Pimentel MD Position: [facility] Renal MD Member Role: Lifetime Consulting Physician Address: Address: [address] [place] [address] [address] [facility] [place] [address]- [place] Name: Heather Pal RN Position: [facility] RN Member Role: Primary Care Nurse Name: Jody Rasmussen RN Position: [facility] RN Member Role: Primary Care Nurse Name: Luisa Devine RN Position: [facility] RN Member Role: Primary Care Nurse Name: Mau Hazel RN Position: S RN Member Role: Primary Care Nurse Name: Pedro Taylor RN Position: S RN Member Role: Primary Care Nurse Name: Charlotte Singletary RN Position: [facility] OB RN Member Role: Primary Care Nurse Name: Alison Jose RN Position: [facility] RN Member Role: Primary Care Nurse Name: Kendall Coleman RN Position: [facility] RN Member Role: Primary Care Nurse Name: Nancy Fair RN Position: [facility] SN RN Member Role: Primary Care Nurse Name: Sofie Reed Position: [facility] RN Member Role: Primary Care Nurse Name: Kasia Vital RN Position: [facility] RN Member Role: Primary Care Nurse Name: Fernando Sdidiqi MD Position: [facility] Renal MD Member Role: Lifetime Consulting Physician Address: Address: [address] [place] [address] [facility] [place] [address]- Name: Kaelyn Lewis RN Position: [facility] RN Member Role: Primary Care Nurse Name: Lianne Byrnes RN Position: [facility] RN Member Role: Primary Care Nurse Name: Tona Jacome LPN Position: S RN Member Role: Primary Care Nurse Name: Tatiana Madrigal RN Position: [facility] RN Member Role: Primary Care Nurse Name: Jose Callejas RN Position: [facility] RN Member Role: Primary Care Nurse Name: Ashely Riley Position: S RN Member Role: Primary Care Nurse Care Team Related PersonsName: LEONOR MCFARLAND Address: [address] [place] [address] Name: REJI TAYLOR Address: home [address] [place] [address] Name: JEFF CHAPMAN Address: [address] Address: home [address] [address] [place] Name: ELI BONILLA Address: home [address] [address]
--- OUTSIDE RECORDS SUMMARY | 2022-05-10 17:00 | XMS_ITS | Continuity of Care Document ---
:1990 Author Organization [facility] Address [address] [place] [id number] Care Team Providers Name Role Phone Carolina Hsu NP Primary Care Physician [place] [facility] [place]07[place] - 04/15/[address] [id number] Discharge Disposition: A-D/C Home Attending Physician: Toñito CARLSON, Tamara Admitting Physician: Sophia CARLSON, William Referring Physician: Not on Staff, Referring MD Allergies, Adverse Reactions, Alerts Substance Reaction Severity Status vancomycin1, 2 Tightness in throat Active morphine Itching Active gabapentin Itching of tongue Severe Active Zosyn3 angioedema Severe Active traMADol Itching of tongue Severe Active 1Tolerates again Per chart: pt [...] '943Admin Note: TD4 Admin Note: unknown exact [id number] Note: unknown exact date Medications acetaminophen 325 mg oral capsule 2 capsule = 650 mg, By Mouth, Every 4 hours, PRN as needed for pain, # 90 capsule, 0 Refills, Acute 03/31/23 8:01:00 EST, 03/30/22 8:01:00 EST, Capsule, [id number], Partial fill upon patient request if the prescription is for a schedule II opi... Start Date: 03/30/22 Stop Date: 03/31/23 Status: OrderedAlbuterol (Eqv-ProAir HFA) 90 mcg/inh inhalation aerosol 2 puffs, Inhalation, Every 4 hours, Maintenance, 03/25/22 22:43:00 EST, Partial fill upon patient request if the prescription is for a schedule II opioid drug. Start Date: 03/25/22 Status: OrderedAspirin Low Dose 81 mg oral delayed release tablet 1 tablet = 81 mg, By Mouth, Daily, Maintenance, 02/13/22 11:23:00 EST, CR Tablet, ; Start Date: 02/13/22 Status: OrderedCoreg 25 mg oral tablet 25 mg, 1, tablet, By Mouth, 2 times a day, # 60 tablet, Refills 0, Tot. Refills 0, Maintenance, 03/29/22 12:11:00 EST, Route to Pharmacy Electronically, [facility] #[id number], Partial fill upon patient request if the prescription is for a schedule II opi... Start Date: 03/29/22 Status: OrderedCoreg 25 mg oral tablet 25 mg, Tablet, By Mouth, 04/15/22 9:00:00 EST Start Date: 04/15/22 Stop Date: 04/15/22 Status: CompletedCrestor 5 mg oral tablet 1 tablet = 5 mg, By Mouth, Daily, # 30 tablet, 0 Refills, Maintenance, 01/19/22 13:30:00 EST, Tablet, [facility]pharm[facility] #[id number], Partial fill upon patient request if the prescription is for a schedule II opioid drug., 160, cm, 01/19/22 8:55:00 EST, Height, 9... Start Date: 01/19/22 Status: Ordereddiclofenac 1% topical gel = 2 Gm, Topically, 4 times a day, # 240 Gm, 0 Refills, Maintenance, 03/30/22 8:01:00 EST, Gel, [facility]pharmacy #[id number], Partial fill upon patient request if the prescription is for a schedule II opioid drug., 168, cm, 03/29/22 10:53:00 EST, Height, 87.4, k... Start Date: 03/30/22 Status: OrderedFlonase 50 mcg/inh nasal spray 1 sprays, Nares, Both, 2 times a day, # 16 Gm, 0 Refills, Maintenance, 03/10/22 13:15:00 EST, [place], Partial fill upon patient request if the prescription is for a schedule IIopioid drug., 1 sprays Nares, Both 2 times a day,... Start Date: 03/10/22 Status: OrderedhydrALAZINE 25 mg oral tablet 25 mg, 1, tablet, By Mouth, 3 times a day, Refills 0, Maintenance, 04/15/22 13:31:00 EST, Partial fill upon patient request if the prescription is for a schedule II opioid drug. Start Date: 04/15/22 Status: OrderedhydrALAZINE 25 mg oral tablet 25 mg, Tablet, By Mouth, 04/15/22 9:00:00 EST Start Date: 04/15/22 Stop Date: 04/15/22 Status: CompletedHYDROmorphone 2 mg oral tablet 1 tablet = 2 mg, By Mouth, Every 4 hours, PRN Pain , Severe, for 5 days, # 30 tablet, 0 Refills, Acute 04/20/22 13:31:00 EST, 04/15/22 13:31:00 EST, Tablet, [facility], Partial fill upon patient request if the prescription is for a sched... Start Date: 04/15/22 Stop Date: 04/20/22 Status: OrderedHYDROmorphone 2 mg oral tablet 2 mg, Tablet, By Mouth, Every 4 hours, PRN for Pain , Severe, Routine, 04/13/22 13:19:00 EST Start Date: 04/13/22 Stop Date: 04/16/22 Status: DiscontinuedLevemir FlexTouch 100 units/mL subcutaneous solution = 8 units, Subcutaneous Injection, Daily in AM, # 10 mL, 0 Refills, Maintenance, 03/10/22 13:13:00 EST, Injection, [facility], Partial fill upon patient request if the prescription is fora schedule II opioid drug., 170, cm, 03/10/22 10:... Start Date: 03/10/22 Status: OrderedNIFEdipine 30 mg oral tablet, extended release 30 mg, 1, tablet, By Mouth, Daily, # 30 tablet, Refills 0, Tot. Refills 0, Maintenance, 03/10/22 13:15:00 EST, Route to Pharmacy Electronically, [facility], Partial fill upon patient request if the prescription is for a schedule II opioi... Start Date: 03/10/22 Stop Date: 04/09/22 Status: OrderedNovoLOG FlexPen 100 units/mL injectable solution 11-12 UNITS, Subcutaneous Injection, 3 times a day before meals, (NOT TAKING & HASN'T IN MONTHS), # 10 mL, 0 Refills, Maintenance, 03/10/22 13:12:00 EST, Injection, [facility], Partial fill upon patient request if the prescription is for... Start Date: 03/10/22 Status: Orderedondansetron 4 mg oral tablet 1 tablet = 4 mg, By Mouth, Every 8 hours, PRN Nausea & Vomiting, # 12 tablet, 0 Refills, Maintenance, 03/10/22 13:16:00 EST, Tablet, [facility], Partial fill upon patient request [...] Dry Weight Start Date: 03/10/22 Status: OrderedPen [place], 31 G x 5 mm BD Ultra Fine III See Instructions, # 100 each, Refills 5, Tot. Refills 5, Maintenance, use as directed for Type 2 Diabetes Mellitus, 03/10/22 13:55:00 EST, Supply, 170, cm, 03/10/22 10:58:00 EST, Height, 88, kg, 02/26/22 23:01:00 EST, Dry Weight Start Date: 03/10/22 Stop Date: 09/06/22 Status: OrderedReglan 5 mg oral tablet 1 tablet = 5 mg, By Mouth, 4 times a day, for 14 days, # 56 tablet, 0 Refills, Acute 04/29/22 13:33:00 EST, 04/15/22 13:33:00 EST, Tablet, [facility], Partial fill upon patient request ifthe prescription is for a schedule II opioid drug... Start Date: 04/15/22 Stop Date: 04/29/22 Status: Orderedscopolamine 1 mg/72 hr transdermal film, extended release 1 film, Topically, Every 72 hours, # 4 each, 0 Refills, Maintenance, 03/10/22 13:17:00 EST, [facility], Partial fill upon patient request if the prescription is for a schedule II opioid drug., 1 film Topically Every 72 hours, 170, cm, 01... Start Date: 03/10/22 Status: Orderedtorsemide 20 mg oral tablet 1 tablet = 20 mg, By Mouth, Daily, # 30 tablet, 0 Refills, Maintenance, 03/10/22 13:14:00 EST, Tablet, [facility], Partial fill upon patient request [...] Migraine5 Confirmed Active Care Coordination Confirmed Active [facility]-CP, Hakan Angel, CC 1Managed by PCP. WEll controlled.2Self-manages. States currently stable. No medications.3Not seem at [facility] since 08/12/2016. Multiple no show in our center. She is seen by other provider Dr Matt Gutierrez by pharmacy records.4Managed by [id number] by PCP with Tylenol Results Radiology Reports Exam Date Time Procedure Performing Provider Status 04/08/22 5:20 PM XR Hip w/Pelvis 2-3 View Right Holly Amaya; Auth (Verified) Notes:(XR Hip w/Pelvis 2-3 View Right) Reason For Exam: PainRESULT: XR Hip w/Pelvis 2-3 View Right XR Hip w/Pelvis 2-3 View Right Reason: Pain; Clinical Question(s): Fracture; Order Comment: 04 08 2022 13:47:46 EST N R per RN - tryaround 16:00. ML COMPARISON: 04/19/2021 FINDINGS: There is no fracture or dislocation. Normal hips and sacroiliac joints. Normal soft tissues. IMPRESSION: No evidence of acute osseous abnormality. WSN: [id number] Ordering Physician: Ksenia Centeno Dictated By: Mihai Germain MD Dictated Date/Time: 04/08/22 5:53 pm Reviewed By: Mihai Germain MD Signed By: Mihai Geramin MD Signed Date/Time: 04/08/22 5:53 pm Transcribed By: ALEXIS Transcribed Date/Time: 04/08/22 5:52 pm Exam Date Time Procedure Performing Provider Status 04/07/22 5:[address] Head/Brain W/O Contrast Alyssa Newell (Verified) Notes:(CT Head/Brain W/O Contrast) Reason For Exam: TraumaRESULT: CT Head/Brain W/O Contrast CT Head/Brain W/O Contrast INDICATION/CLINICAL QUESTION: Hx of Present Illness: sob head pain right flank pain; Reason: Trauma;Clinical Question(s): Hematoma / Hematoma. TECHNIQUE: Noncontrast head CT using axial technique and reconstructed in axial and coronal plane. Age-based protocol was used to optimize exposure parameters. CTDIvol Head: 47.10 mGy, DLP Head: 773 mGy*cm. COMPARISON: CT head, 01/17/2022. MRI brain, 12/02/2021. FINDINGS: The fourth ventricle is midline. The posterior fossa structures are unremarkable. The ventricles andsulci are normal in size. Ventura-white differentiation is preserved without evidence of acute confluent lobar infarction. There is no hemorrhage, midline shift, or mass effect. No extra- axial collection is noted. The calvarium is intact. Sinuses and mastoids are clear. Poorly defined hypodensity is seen within each lobe, right more prominent than left, probably representing vitreous detachment, as noted on the MRI from 12/02/2021. IMPRESSION: No acute intracranial abnormality. Presumed vitreous detachment along the posterior margin of each globe, as seen on MRI from 11/27/2021. WSN: [id number] Ordering Physician: Erika Tao Dictated By: Jeannie Glass MD Dictated Date/Time: 04/07/22 5:24 pm Reviewed By: Jeannie Glass MD Signed By: Jeannie Glass MD Signed Date/Time: 04/07/22 5:24 pm Transcribed By: ALEXIS Transcribed Date/Time: 04/07/22 5:17 pm Exam Date Time Procedure Performing Provider Status 04/07/22 4:39 PM Chest 2 Views Frontal and Lat Erin Diego [facility] (Verified) Notes:(Chest 2 Views Frontal and Lat) Reason For Exam: Shortness of Breath RESULT: Chest 2 Views Frontal and Lat AP and lateral chest x-ray dated April 07, 2022. Comparison films are from April 05, 2022. HISTORY: Shortness of breath. FINDINGS: The cardiac silhouette is at the upper limits of normal for size and is unchanged. Some mild pulmonary vascular congestion is noted centrally. Minimal interstitial thickening is noted. No airspace consolidation is appreciated. There is some minimal blunting of the posterior costophrenic sulci likely representing minimal effusions. Visualized osseous structures are unremarkable. IMPRESSION: Findings are consistent with a volume overload/mild pulmonary edema pattern. Examination [address]. Thank you for allowing me to participate in the care of this patient. WSN: [id number] Ordering Physician: Erika Tao Dictated By: Kareem Ackerman MD Dictated Date/Time: 04/07/22 5:05 pm Reviewed By: Kareem Ackerman MD Signed By: Kareem Ackerman MD Signed Date/Time: 04/07/22 5:05 pm Transcribed By: ALEXIS Transcribed Date/Time: 04/07/22 5:05 pm Vital Signs Most recent to oldest 1 2 3 [Reference Range]: Height 168 cm 168 cm 168 cm (04/15/22 7:45 AM) (04/15/22 2:40 AM) (04/14/22 7:2 9 PM) Weight 79.8 kg 83.6 kg 86.4 kg (04/13/22 5:41 AM) (04/10/22 5:51 AM) (04/09/22 6:3 0 AM) Oxygen Saturation [94-100 %] 93 % 94 % 99 % *L* (04/15/22 2:40 AM) (04/14/22 7:29 PM) (04/15/22 7:45 AM) Pulse Rate [55-90 bpm] 105 bpm 105 bpm 89 bpm *H* *H* (04/15/22 2:40 AM ) (04/15/22 10:38 AM) (04/15/22 7:45 AM) Body Mass Index [18.5-24.99 32.24 kg/m2 kg/m2] *>HHI* (04/07/22 7:59 PM) Blood Pressure [90-138/55-84 156/68 mm Hg 156/68 mm Hg 156 /68 mm Hg mm Hg] *H* *H* *H* (04/15/22 10:38 AM) (04/15/22 10:38 AM) (04/15/22 7 :45 AM) Respiratory Rate [16-30 18 br/min 18 br/min 16 br/mi n br/min] (04/15/22 7:45 AM) (04/15/22 2:40 AM) (04/14/22 9:5 3 PM) Temperature [96.8-100.4 DegF] 98.4 DegF 98.2 DegF 98 .5 DegF (04/15/22 7:45 AM) (04/15/22 2:40 AM) (04/14/22 7:2 9 PM) Liters per Minute 2 L/min 1 L/min 1 L/min (04/08/22 1:25 PM) (04/07/22 5:52 PM) (04/07/22 2:1 9 PM) Mode of Delivery (Oxygen) Room air Room air Room a ir (04/15/22 7:45 AM) (04/15/22 2:40 AM) (04/14/22 7:2 9 PM) Blood pressure sites Leg, right Arm, left Arm, left (04/15/22 7:45 AM) (04/15/22 2:40 AM) (04/14/22 7:2 9 PM) Temperature Route Temporal Oral Oral (04/15/22 7:45 AM) (04/15/22 2:40 AM) (04/14/22 7:2 9 PM) Dry Weight 91 kg (04/07/22 7:59 PM) Weight Obtained Via Bed scale Bed scale Bed scale (04/13/22 5:41 AM) (04/10/22 5:51 AM) (04/09/22 4:3 3 AM) Social History Social History Type Response Smoking Status Never (less than 100 in life time) entered on: 08/22/21 Sex Admission evaluation note Stephen Rincon DO: MODIFY, MODIFY, MODIFY, MODIFY, MODIFY, MODIFY, MODIFY, MODIFY, MODIFY, MODIFY, MODIFY, MODIFY, MODIFY, MODIFY, MODIFY, MODIFY, MODIFY, MODIFY, MODIFY, MODIFY, MODIFY, MODIFY, MODIFY,MODIFY, MODIFY, MODIFY, PERFORM, MODIFY, MODIFY, MODIFY, MODIFY, MODIFY, MODIFY Event Display: Admission Note Authored Date: [id number] Patient: ??ROWAN TAYLOR ? Age:??31 Years?Sex:??Female?:??1990?? Chief Complaint/Reason for Consultation SOB/pleural pain x couple days o inspiration and expiration, hx of pleurel effusions. Home O2 2lnc. History of Present Illness This is a 31-year-old female with a past medical history of hypertension, nonischemic cardiomyopathy, HFrEF (40 to 45% in 02/2022), type 2 diabetes mellitus, CKD stage IV, asthma, history of osteomyelitis of the right foot, and legal blindness, she was recently admitted for??hypertensive urgency on 03/25, discharged on 03/29. She is presented to the ED with shortness of breath, found to have a CHF exacerbation.? Patient states for the last 2 to 3 days of progressively worsening shortness of breath, worse??on exertion as well as??lower extremity swelling and??dizziness while standing.??She has also had??a headache and right-sided??pain for the past 2 days that she rated a??10/10 since she reportedly fell in the ED waiting room bathroom on 04/04 as per ED??triage report on 04/05. On both dates??per documentation she LWBS.??On her current presentation she reports??worsening??shortness of breath and pain that is not??alleviated by Tylenol and oxycodone, which she has a home for diabetic foot pain. She also has occasional nausea without vomiting that she said was not worse than baseline.??She endorsed chest pain related to her right side and fall, she??denied any abdominal pain or??diarrhea.??She??denied anysymptoms of recent illness including fevers or chills, she denied dysuria??or report of hematuria orblood in her stool. 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 Vitals on presentation show the patient to be afebrile with a temperature of 97.6, heart rate of 104, blood pressure initially 190/109, improving to 168/109, oxygen saturation of 100% on 1 L/min via nasal cannula. Initial labs showed WBC of 5.6, H&H of 7.6/24.7, platelet count of 250, BMP showed electrolytes largely within normal limits, bicarbonate of 21, glucose of 123, BUN and creatinine of 41/3.0, proBNP of 26,000 down from 31,000, initial troponin of 63 followed by 60 (down from previous admission of 70 and 72).?? COVID was negative. ?? EKG shows sinus tachycardia with a heart rate of 102 bpm, right bundle torsten block, without any significant signs of ischemia.??QTc 513. CXR??shows findings consistent with pulmonary edema/volume overload. CT head and brain showed no acute intracranial abnormality. Presumed vitreous detachment along the posterior margin of each globe as seen on MRI on 11/27/2021. ?? So far in the emergency department she has received 40 mg of IV Lasix, 25 mg of carvedilol, 5 mg ofamlodipine, 650 mg of Tylenol, half a milligram of Ativan and 30 mg of nifedipine. ?? At bedside she was reporting ongoing right sided pain and headache radiating to her right eye, she rated her pain a 1000, and??stated it was a 10/10, she did not want to try oral medications since she was concerned these would make her more nauseous. She was without labored breathing or shortness of breath. Her blood pressure was improving from presentation, SBP of 168 down from 190. She was otherwise hemodynamically stable, saturating well on room air. Review of Systems A review of systems was completed and is otherwise negative except as mentioned in history of present illness. Objective ? Vital Signs?? Temperature: 97.6 DegF (04/07/22 14:18:00) Temperature Route: Oral (04/07/22 14:18:00) Pulse Rate:??102 bpm??High (04/07/22 17:52:00) Respiratory Rate:??15 br/min??Low (04/07/22 17:52:00) Vented: No (04/07/22 14:19:00) Systolic Blood Pressure:??168 mm Hg??High (04/07/22 17:52:00) Systolic Blood Pressure:??168 mm Hg??High (04/07/22 17:52:00) Systolic Blood Pressure:??168 mm Hg??High (04/07/22 17:52:00) Diastolic Blood Pressure:??109 mm Hg??High (04/07/22 17:52:00) Diastolic Blood Pressure:??109 mm Hg??High (04/07/22 17:52:00) Diastolic Blood Pressure:??109 mm Hg??High (04/07/22 17:52:00) Blood pressure sites: Arm, right (04/07/22 17:52:00) Mean Arterial Pressure: 136 mm Hg (04/07/22 14:18:00) Pulse Pressure: 59 mm Hg (04/07/22 17:52:00) Oxygen Saturation: 95 % (04/07/22 17:52:00) Liters per Minute: 1 L/min (04/07/22 17:52:00) Mode of Delivery (Oxygen): Nasal cannula (04/07/22 17:52:00) Early Warning Score: 5 (04/07/22 19:37:53) ? Intake/Output? No Data Available ? Physical Exam General: The patient was found resting and in mild distress. HEENT:??NCAT, EOMI, right eye opacified, no scleral icterus or erythema, moist mucus membranes Cardiovascular: RRR S1 and S2 heard with no murmurs, rubs or gallops. JVD elevated to mandible. Respiratory: Breath sounds clear to auscultation bilaterally. No wheezing. GI: Soft. Nontender and nondistended. Normal bowel sounds present throughout abdomen.?? MSK/Skin: Right side ribs, flank and right hip with palpable tenderness, small bruise over the right hip. Trace pitting edema in the BLE, no erythema in the lower extremities. Neuro: No gross motor or neuro deficits. Sensation intact throughout. Psych: Alert and oriented, appropriate level of concern and pleasant. Assessment/Plan This is a 31-year-old female with a past medical history of hypertension, nonischemic cardiomyopathy, HFrEF (40 to 45% in 02/2022), type 2 diabetes mellitus, CKD stage IV, asthma, history of osteomyelitis of the right foot, and legal blindness, she was recently admitted for??hypertensive urgency on 03/25, discharged on 03/29. She is presented to the ED with shortness of breath, found to have a CHF exacerbation.? Systolic CHF exacerbation Non-ischemic cardiomyopathy (EF 40-45%) Shortness of breath Pulmonary edema Hypertension Patient presented with progressively worsening shortness of breath for the past 2-3 days. Vitals on presentation showed the patient to be hypertensive to the 190s with elevated??proBNP level.? Consistent with??acute??exacerbation of??chronic heart failure in the setting of hypertension and suspected medication non-adherence. Pt has had difficulty taking oral meds due to nausea. ?? 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 ?? Recent fall Pt had a recent fall in the ED waiting room on 04/04, since then she has had right sided pain and aheadache. CT head and brain showed no acute intracranial abnormality. Presumed vitreous detachment along the posterior margin of each globe as seen on MRI on 11/27/2021. PE with right side ribs, flank and right hip with palpable tenderness, small bruise over the right hip. ?? Plan Pain management with Tylenol PRN for mild pain Continue home oxycodone 5 mg q6h PRN??for moderate pain, (confirmed on [facility], pt is receiving this outpatient) Consider Dilaudid 0.2 mg IV for severe pain ?? Prolonged QTc On most recent??EKG QTc was 513. Avoid QT prolonging medications ?? CKD IV Creatinine??3.0??(baseline around??3) Monitor renal function, avoid nephrotoxic medications. ?? Type II Diabetes Most recent A1c of 5.5 in 10/2021 -F/u with A1c -Insulin sliding scale lispro and glargine??5 units in AM -hypoglycemic measures ?? Asthma:?? -albuterol PRN ?? GERD -Continue pantoprazole ?? Quality Measures: VTE prophylaxis: SQH TID Diet: Cardiac diet Code status: Full - confirmed with patient at bedside Ongoing medical necessity: CHF exacerbation Discharge planning:??Likely 2-3 days ?? I have discussed the case and its management with my attending, ??Bess ?? - Stephen Rincon DO - PGY2 - Internal Medicine - Pager # [phone] Histories Allergies Allergies ?(Active and Proposed Allergies Only) gabapentin? (Severity: Severe, Onset: Unknown) ?Reactions: Itching of tongue traMADol? (Severity: Severe, Onset: Unknown) ?Reactions: Itching of tongue morphine? (Severity: Unknown severity, Onset: Unknown) ?Reactions: Itching Zosyn? (Severity: Severe, Onset: Unknown) ?Reactions: angioedema ?Comments: Tolerates cefazolin vancomycin? (Severity: Unknown severity, Onset: Unknown) ?Reactions: Tightness in throat ?Comments: Tolerates again 05/21 ?Comments: Per chart: pt tolerated vanco on 05/18/21 ? Past Medical History/Problem List Active Problems??(15) Asthma Blindness of right eye Cardiac disease during , antepartum Care Coordination [facility]-CP, Hakan Angel, CC CKD (chronic [...] great toe Amputation left pinky toe Repeat 2013 Cholecystectomy Amputation of right great [...] Brother: Diabetes mellitus ? Medications Home Medications Acetaminophen (acetaminophen 325 mg oral capsule)?2?capsule?650?Milligram?By Mouth?Every 4 hours?as needed?as needed for pain Albuterol (Albuterol (Eqv-ProAir HFA) 90 mcg/inh inhalation aerosol)?2?puff(s)?Inhalation?Every 4 hours Amlodipine (amLODIPine 5 mg oral tablet)?5?Milligram?1?tablet?By Mouth?Daily Aspirin (Aspirin Low Dose 81 mg oral delayed release tablet)?1?tab(s)?81?Milligram?By Mouth?Daily Carvedilol (Coreg 25 mg oral tablet)?25?Milligram?1?tablet?By Mouth?2 times a day Diclofenac Topical (diclofenac 1% topical gel)?2?gram?Topically?4 times a day Durable Medical Equipment ([place], 31 G x 5 mm BD Ultra Fine III)?See Instructions?for 30?Days?use as directed for Type 2 Diabetes Mellitus Fluticasone Nasal (Flonase 50 mcg/inh nasal spray)?1?spray(s)?Nares, Both?2 times a day hydrALAZINE (hydrALAZINE 10 mg oral tablet)?10?Milligram?1?tablet?By Mouth?2 times a day Insulin Aspart (NovoLOG FlexPen 100 units/mL injectable solution)?11-12 UNITS?Subcutaneous Injection?3 times a day before meals?(NOT TAKING & HASN'T IN MONTHS) Insulin Detemir (Levemir FlexTouch 100 units/mL subcutaneous solution)?8?unit(s)?Subcutaneous Injection?Daily in AM NIFEdipine (NIFEdipine 30 mg oral tablet, extended [...] oral tablet)?1?tab(s)?20?Milligram?By Mouth?Daily ? Inpatient Medications Medications (15) Active SCHEDULED: (9) Aspirin 81 mg EC Tablet (aspirin 81 mg oral delayed release tablet) ??81 mg, By Mouth, Daily Carvedilol 25 mg Tablet (Coreg 25 mg oral tablet) ??25 mg, By Mouth, 2 times a day Furosemide Inj (Furosemide ??Inj) ??40 mg 4 mL, IV Push Slowly, 2 times a day Heparin 5000 units/mL Inj (1 mL) (Heparin Inj) ??5,000 units 1 mL, Subcutaneous Injection, 3 times a day Insulin Lispro 100 units/mL Inj (3mL) (Insulin [...] release tablet) ??40 mg, By Mouth, Daily Rosuvastatin 5 mg Tablet (Crestor 5 mg oral tablet) ??5 mg, By Mouth, Daily CONTINUOUS: (0) PRN: (6) Acetaminophen 325 mg Tablet (Acetaminophen Tablet) ??650 mg, By Mouth, Every 4 hours Albuterol 90mcg/Inhalation Inhaler HFA (albuterol CFC free 90 mcg/inh inhalation aerosol) ??90 mcg 1 puffs, Inhalation, Every 4 hours Melatonin 3 mg Tablet (Melatonin Tablet) ??3 mg, By Mouth, Daily at bedtime NaCl 0.9% Flush 3ml (NaCL 0.9% Flush) ??3 mL, IV Push, Every 8 hours OxyCODONE 5 mg IR Tablet (oxyCODONE 5 mg oral tablet) ??5 mg, By Mouth, Every 6 hours Senna 8.6 mg / Docusate 50 mg tablet (Docusate/Senna Tablet) ??1 tablet, By Mouth, 2 times a day ? Results Recent Labs BLOOD COUNT & DIFF WBC 5.6 k/mm3 ()?? 04/07/2022 16:09 RBC 2.83 m/mm3 (Low)?? 04/07/2022 16:09 Hgb 7.6 Gm/dL (Low)?? 04/07/2022 16:09 Hct 24.7 % (Low)?? 04/07/2022 16:09 MCV 87.3 femtoliters ()?? 04/07/2022 16:09 MCH 26.9 pg (Low)?? 04/07/2022 16:09 MCHC 30.8 g/dL (Low)?? 04/07/2022 16:09 Platelet Count 250 k/mm3 ()?? 04/07/2022 16:09 RDW-SD 51.8 femtoliters (High)?? 04/07/2022 16:09 MPV 11.7 femtoliters ()?? 04/07/2022 16:09 Nucleated RBC (Automated) 0.0 #/100 WBC'S ()?? 04/07/2022 16:09 Abs. NRBC 0.0 k/mm3 ()?? 04/07/2022 16:09 Abs. Neut 4.3 k/mm3 ()?? 04/07/2022 16:09 Abs. Lymph 0.7 k/mm3 (Low)?? 04/07/2022 16:09 Abs. Gladwin 0.4 k/mm3 ()?? 04/07/2022 16:09 Abs. Eo 0.2 k/mm3 ()?? 04/07/2022 16:09 Abs. Baso 0.0 k/mm3 ()?? 04/07/2022 16:09 Neut % 76.2 % (High)?? 04/07/2022 16:09 Lymph % 12.9 % (Low)?? 04/07/2022 16:09 Gladwin % 6.8 % ()?? 04/07/2022 16:09 Eos % 3.2 % ()?? 04/07/2022 16:09 Baso % 0.4 % ()?? 04/07/2022 16:09 Imm Gran 0.5 % ()?? 04/07/2022 16:09 Abs. Imm Gran 0.0 k/mm3 ()?? 04/07/2022 16:09 ?? CARDIAC Nt-Probnp 61657 pg/mL (High)?? 04/07/2022 16:09 High Sensitivity Troponin (HSTnT) 60 ng/L (Critical)?? 04/07/2022 18:04 ?? CHEM GENERAL Sodium 138 mmol/L ()?? 04/07/2022 16:09 Potassium 5.1 mmol/L ()?? 04/07/2022 16:09 Chloride 107 mmol/L ()?? 04/07/2022 16:09 Bicarbonate Level 21 mmol/L (Low)?? 04/07/2022 16:09 Anion Gap 10 ()?? 04/07/2022 16:09 Glucose Level 143 mg/dL (High)?? 04/07/2022 16:09 Glucose, POC 164 mg/dL (High)?? 04/07/2022 14:16 BUN 41 mg/dL (High)?? 04/07/2022 16:09 Creatinine-Blood 3.0 mg/dL (High)?? 04/07/2022 16:09 Estimated GFR Creatinine 21 ML/MIN/1.73 M2 ()?? 04/07/2022 16:09 Calcium 8.3 mg/dL (Low)?? 04/07/2022 16:09 Magnesium 2.2 mg/dL ()?? 04/07/2022 16:09 Protein, Total 6.2 Gm/dL ()?? 04/07/2022 16:09 Albumin 3.2 Gm/dL (Low)?? 04/07/2022 16:09 AG Ratio 1.1 ()?? 04/07/2022 16:09 Alkaline Phosphatase 68 units/L ()?? 04/07/2022 16:09 Lipase 31 units/L ()?? 04/07/2022 16:09 AST (SGOT) 11 units/L ()?? 04/07/2022 16:09 ALT (SGPT) 8 units/L ()?? 04/07/2022 16:09 Bilirubin, Total 0.4 mg/dL ()?? 04/07/2022 16:09 ?? HEME OTHER Hold Blue Top SPECIMEN DISCARDED AFTER 4 HOURS. ()?? 04/07/2022 16:09 ?? VIROLOGY COVID-19 by RT-PCR NEGATIVE ()?? 04/07/2022 16:01 ? Urinalysis?? No qualifying data available. ?? Microbiology ?? COVID-19 (Novel Coronavirus), Rapid PCR?? Completed?? Source: Nasal Body Site: Nose Collected Dt/Tm: 04/07/2022 15:23 Last Updated Dt/Tm: 04/07/2022 17:49 ? Williams Bess MD: PERFORM Event Display: Admission Note Authored Date: [id number] ??Attending Attestation:?? I have seen and evaluated this patient. ?? I have discussed the case and its management with the resident and agree with the findings and plan as documented in the resident's note. ??I ??will continue to provide care to this patient till 7 AM of the admitting date. ? 31-year-old female with a past medical history of hypertension, diabetes mellitus with diabetic nephropathy, CKD, nonischemic cardiomyopathy with a low ejection fraction, mild MR/TR, asthma, ASD, legally blind, depression came with a complaint of shortness of breath. ??In the ED she was tachycardic with high blood pressure. ??Chest x-ray was concerning of fluid overload/mild pulmonary edema. ??Overall patient is poor historian and noncompliant with her medication. ??She did have a history of fall and was complaining of?hip pain and headache. ??CT of the head ruled out any acute intracranial pathology. ??Concern of acute on chronic systolic congestive heart failure. ??We will optimize the diuretic treatment as per renal function and volume status. ??Lab work-up showed chronic anemia with stable CKD and high troponin in the setting of low creatinine clearance. EKG study Event Display: ECG 12-Lead Authored Date: Please click on pdf link to open report Event Display: ECG 12-Lead Authored Date: Ventricular Rate: 83 BPM Atrial Rate: 83 BPM P-R Interval: 138 ms QRS Duration: 134 ms Q-T Interval: 420 ms QTC Calculation(Bazett): 493 ms P Mccune: 59 degrees R Mccune: -3 degrees T Mccune: -26 degrees Normal sinus rhythm Right bundle branch block Abnormal ECG Confirmed by MAXWELL LÓPEZ ([id number]) on 04/13/2022 9:02:06 PM [place]: MAXWELL LÓPEZ Event Display: EKG Authored Date: Event Display: ECG 12-Lead Authored Date: Please click on pdf link to open report Event Display: ECG 12-Lead Authored Date: Ventricular Rate: 109 BPM Atrial Rate: 109 BPM P-R Interval: 138 ms QRS Duration: 136 ms Q-T Interval: 374 ms QTC Calculation(Bazett): 503 ms P Mccune: 70 degrees R Mccune: 15 degrees T Mccune: 33 degrees Sinus tachycardia Right bundle branch block Abnormal ECG When compared with ECG of 09-APR-2022 14:05, No significant change was found Confirmed by MAXWELL LÓPEZ ([id number]) on 04/13/2022 9:01:28 PM [place]: MAXWELL LÓPEZ Event Display: EKG Authored Date: Event Display: EKG Authored Date: Event Display: ECG 12-Lead Authored Date: Please click on pdf link to open report Event Display: ECG 12-Lead Authored Date: Ventricular Rate: 96 BPM Atrial Rate: 96 BPM P-R Interval: 146 ms QRS Duration: 134 ms Q-T Interval: 406 ms QTC Calculation(Bazett): 512 ms P Mccune: 80 degrees R Mccune: 40 degrees T Mccune: 53 degrees Normal sinus rhythm Right bundle branch block Abnormal ECG When compared with ECG of 07-APR-2022 14:18, MANUAL COMPARISON REQUIRED, DATA IS UNCONFIRMED Confirmed by FABIAN WHITTINGTON MD ([id number]) on 04/09/2022 4:40:14 PM [place]: NELSY CARLSON,[facility] [address] Progress note Michael Eaton RN: PERFORM, SIGN, VERIFY Event Display: Progress Note Hospital Authored Date: [id number] Patient: ROWAN TAYLOR Age: 31 years Sex: Female : 1990 Associated Diagnoses: None Author: Michael Eaton RN Findings Problem Related to Alteration in Cardiac Function (new) : Alteration in Cardiac Function/new 04/15/2022 9:00 EST Alteration in Cardiac Status Related [...] Pt/caregiver will state strategies to reduce risk factors, Pt will state importance of adhering to med regime Cardiac Interventions Implemented Assess/monitor cardiac status, Assess/monitor neuro status, Assess/monitor respiratory status, Call/Report variances in ECG to provider, Document & Monitor O2 Sats; Administer O2 as ordered, Ensure adequate caloric intake, If no bowel movement in 3 days activate bowel regime, Monitor & document daily weight, Monitor anticoagulation values BH Goals/Interventions, Cardiac Yes Cardiac, Problem Start 04/06/2022 18:44 Reviewed Plan with, Cardiac Status Patient Patient Progression, Cardiac Status Patient progressing according to plan . Alteration in Fluid Electrolyte : Alteration in Fluid Electrolyte Func/new 04/15/2022 9:00 EST Alteration Fluid Electrolytes Related to Fluid Volume Excess Goals & Outcomes, Fluid/Electrolyte Blood glucose levels will stabilize during hospitalization,Vital signs, electrolytes & glucose levels will stabilize, Pt will maintain adequate GI/ function appropriate for pt, Pt will maintain skin turgor, Pt will resume/maintain adequate cardiac output, Pt will resume/maintain adequate hemodynamic status, Pt will state importance of adhering to medication regime, Pt's weight will normalize, Pt will maintain hydration during fluid restriction Interventions, Fluid Electrolyte monitor cardiac status, monitor dietary intake, Monitor effects ofdiuretics, monitor effects of insulin, glucose values, monitor for s/s of anemia: weakness, fatigue,, monitor for s/s of hyper/hypokalemia, monitor for s/s of hypo or hyperglycemia, monitor GI/ status, monitor hydration status, monitor mucous membranes, monitor peripheral pulses, monitor skin turgor, temperature & capillary refill, Encourage & assist with increased activity as pt tolerates,Encourage oral intake of meals, snacks, supplements, Encourage oral intake/fluids as ordered, Maintain strict intake & output, Monitor & document daily weight BH Goals/Interventions,Fluid Electrolyte Yes Fluid Electrolyte, Problem Start 04/06/2022 18:44 Reviewed plan with, Fluid Electrolyte Patient Patient Progression, Fluid Electrolyte Pt progressing according to plan . Nursing Data Cardiac Data. : Cardiac Data. 04/15/2022 9:00 EST Nail Bed Color, Fingers Pale Nail Bed Color, Toes Pale Skin Temperature Upper Extremities Warm, Dry Skin Temperature Lower Extremities Warm, Dry Heart Sounds S1, S2 Heart Rhythm Regular Cardiac Rhythm Normal sinus rhythm Capillary Refill < 3 seconds night monitor Yes Cardiovascular WNL except . Gastrointestinal Data. : Gastrointestinal Data. 04/15/2022 9:00 EST Gastrointestinal Symptoms Other: gastroparesis - takeing reglan to alleviate Last Bowel Movement 04/13/2022 Gastrointestinal Comment poor po's, eats sporadically; refusing insulin coverage and lantus today GI WNL except Normal Bowel Pattern Daily . Genitourinary Data. : Genitourinary Data. 04/15/2022 9:00 EST WNL . HEENT Data. : HEENT Assessment 04/15/2022 9:00 EST HEENT, Adult WNL except Eye Location, Adult Both eyes Eye Symptoms, Adult Vision impairment . Integumentary Data. : Integumentary Data. 04/15/2022 9:00 EST Sensory Perception Slightly limited Moisture Occasionally moist Activity Walks occasionally Activity Walks occasionally Mobility Slightly limited Mobility Slightly limited Nutrition Probably inadequate Friction and Shear No apparent problem Prasad Score 17 Nursing Care Plan initiated/updated Not applicable Integumentary WNL . Musculoskeletal Data. : Musculoskeletal Data. 04/15/2022 9:00 EST Musculoskeletal Symptoms Weakness Musculoskeletal Comment right TMA, Left great toe & small toe amp's Musculoskeletal WNL except . Neurological Data. : Neurological Data. 04/15/2022 10:38 EST Pain Intensity 0 04/15/2022 9:00 EST Neurological Symptoms Back pain, Other: legally blind,right eye blind Pain Location Other: back pain Pain Comment pain has been alleviated since dose of dilaudid the other day Neuro WNL except . Respiratory/Pulmonary Data. 04/15/2022 9:00 EST Respiratory WNL . Vital Signs : VITAL SIGNS SECTION 04/15/2022 7:45 EST Temperature 98.4 DegF Temperature Route Temporal Pulse Rate 105 bpm H Respiratory Rate 18 br/min Systolic Blood Pressure 156 mm Hg H Diastolic Blood Pressure 68 mm Hg Blood pressure sites Leg, right Mean Arterial Pressure 97 mm Hg Pulse Pressure 88 mm Hg Oxygen Saturation 93 % L Mode of Delivery (Oxygen) Room air . Narrative/Incidental Weight not available from early am (pt refused to be weighed), exam is not volume overloaded and pt refused both insulin glargine and lispro coverage/neifedipine/pantoprazole but took aspirin/carvedilol/hydralazine crushed and mixed in applesauce as well as iv reglan; sinuis rhythm on monitor, MAP 97 with sbp 156 before meds, not in pain currently, tolerating oob to bedside commode. Pt wants to go home today and plan is for discharge this afternoon..Jay Narvaez MD, Steve Regan: MODIFY, MODIFY, MODIFY, MODIFY, MODIFY, MODIFY, MODIFY, MODIFY, MODIFY, PERFORM, MODIFY, MODIFY, MODIFY, MODIFY, MODIFY, MODIFY, MODIFY, MODIFY Event Display: Progress Note Hospital Authored Date: [id number] Patient: ??ROWAN TAYLOR ? Age:??31 Years?Sex:??Female?:??1990?? Subjective Patient??stating that she was in pain??coming from the right side of her body??in her lower back??throughout the night??as she had been switched to oral Dilaudid??and this did not work for??her.?This pain is chronic for her. ??She also states that overnight??she had an episode of emesis because??she took too many pills??at once??and she??usually??crushes her pills in applesauce??instead of taking them whole.?? Pills in general??give her nausea, she has been??otherwise tolerating??p.o. intake??andhas graduated to??soft solid foods??on her diet.?? She has not had episodes of nausea??other than the one reported??in relation to??the pills.?? This morning??she states her pain is a lot better??afterher initial dose of??p.o. Dilaudid. ??She states oxycodone does not work at home??and she is willing??to be discharged on a trial of p.o. Dilaudid.?? She does not have any shortness of breath or chest pain??and feels like she can be discharged home??tomorrow. ??She has an appointment with GI??on Sunday??as outpatient.?? Has been having regular bowel movements daily, denies diarrhea, fevers, chills, does not report any other systemic symptoms. Review of Systems A full review of systems was performed and is otherwise negative except as mentioned above in HPI. ?? Objective Vital Signs?? Temperature: 97.6 DegF (04/14/22 05:00:00) Temperature Route: Temporal (04/14/22 05:00:00) Pulse Rate: 84 bpm (04/14/22 05:00:00) Respiratory Rate: 18 br/min (04/14/22 05:00:00) Systolic Blood Pressure:??141 mm Hg??High (04/14/22 05:00:00) Diastolic Blood Pressure: 76 mm Hg (04/14/22 05:00:00) Blood pressure sites: Arm, left (04/14/22 05:00:00) Mean Arterial Pressure: 104 mm Hg (04/13/22 21:06:00) Pulse Pressure: 65 mm Hg (04/14/22 05:00:00) Oxygen Saturation: 99 % (04/14/22 05:00:00) Mode of Delivery (Oxygen): Room air (04/14/22 05:00:00) Early Warning Score: 2 (04/14/22 06:49:56) ? Ventilator Settings?? No qualifying data available. ? Intake/Output? 04/07 18:44 04/14 07:00 04/13 07:00 04/12 07:00 04/11 07:00 ?? 04/14 07:15 04/14 07:15 04/14 06:59 04/13 06:59 04/12 06:59 Intake ? 3010 ?0 ?480 ?840 ?120 Output ?61007 ?0 ? 1700 ? 1400 ? 2550 Net Total ? -31150 ?0 ?-1220 ? -560 ?-2430 ? Urine Count ?1 ?0 ?0 ?0 ?0 Emesis Count ?2 ?0 ?0 ?0 ?2 ? Physical Exam ?? General: Patient in no acute distress ?HEENT: Normocephalic, atraumatic, pupils clouded by bilateral cataracts, EOMI, moist mucous membranes. ?Respiratory: Bilateral equal air entry, clear to auscultation with no wheezes or crackles. Adequate respiratory rate and effort on room air.?CVS: Regular rate with regular rhythm, S1 and S2 present, no murmurs, rubs or gallops. No JVD.?GI: Soft, non tender, non distended, bowel sounds present, no organomegaly.?Extremities: No cyanosis, pulses present and equal bilaterally. No LE edema noted.?Neuro: Alert and oriented x3. Cranial nerves II-XII grossly intact. Moving all extremities spontaneously. Normal tones, following simple commands.?Derm: No signs of infection, skin is intact with no evidence of erythema, no purulent discharge. ?Psych: Normal mood and affect?? _ Inpatient Medications Medications (23) Active SCHEDULED: (13) Acetaminophen 325 mg Tablet (Acetaminophen Tablet) ??650 mg, By Mouth, Every 6 hours Aspirin 81 mg EC Tablet (aspirin 81 mg oral delayed release tablet) ??81 mg, By Mouth, Daily Carvedilol 25 mg Tablet (Coreg 25 mg oral tablet) ??25 mg, By Mouth, 2 times a day Heparin 5000 units/mL Inj (1 mL) (Heparin Inj) ??5,000 units 1 mL, Subcutaneous Injection, 3 times aday hydrALAZINE 25 mg Tablet (hydrALAZINE 25 mg oral tablet) ??25 mg, By Mouth, 3 times a day Insulin Glargine 100 units/mL Inj (Insulin Glargine Inj) ??5 units 0.05 mL, Subcutaneous Injection, Daily in AM Insulin Lispro 100 units/mL Inj (3mL) (Insulin LISPRO Sliding Scale) ??2-10 units, Subcutaneous Injection, 3 times a day before meals Metoclopramide 5 mg/mL Inj (2 mL) (Reglan Inj) ??5 mg, IV Push Slowly, 3 times a day NaCl 0.9% Flush 3ml (NaCL 0.9% Flush) ??3 mL, IV Push, Every 8 hours NIFEdipine 30 mg ER Tablet (NIFEdipine 30 mg oral tablet, extended release) ??30 mg, By Mouth, Daily Pantoprazole 40 mg EC Tablet (pantoprazole 40 mg oral delayed release tablet) ??40 mg, By Mouth, 2 times a day Rosuvastatin 5 mg Tablet (Crestor 5 mg oral tablet) ??5 mg, By Mouth, Daily Torsemide 20 mg tablet (torsemide 20 mg oral tablet) ??20 mg 1 tablet, By Mouth, Daily CONTINUOUS: (0) PRN: (10) Albuterol 90mcg/Inhalation Inhaler HFA (albuterol CFC free 90 mcg/inh inhalation aerosol) ??90 mcg 1puffs, Inhalation, Every 4 hours Dextrose Inj Syringe (Dextrose 50% Inj Syringe (25Gm)) ??12.5 Gm, IV Push Slowly, Every 20 minutes Dextrose Inj Syringe (Dextrose 50% Inj Syringe (25Gm)) ??25 Gm, IV Push Slowly, Every 15 minutes Glucose 40% Gel (15 Gm) (Glucose Gel) ??15 Gm, By Mouth, Every 20 minutes Glucose 40% Gel (15 Gm) (Glucose Gel) ??30 Gm, By Mouth, Every 20 minutes HYDROmorphone 2 mg Tablet (HYDROmorphone 2 mg oral tablet) ??2 mg, By Mouth, Every 4 hours Lorazepam 2 mg Inj [...] By Mouth, 2 times a day ? Results Recent Labs BLOOD COUNT & DIFF WBC 5.1 k/mm3 ()?? 04/14/2022 05:13 RBC 2.70 m/mm3 (Low)?? 04/14/2022 05:13 Hgb 7.5 Gm/dL (Low)?? 04/14/2022 05:13 Hct 23.3 % (Low)?? 04/14/2022 05:13 MCV 86.3 femtoliters ()?? 04/14/2022 05:13 MCH 27.8 pg ()?? 04/14/2022 05:13 MCHC 32.2 g/dL (Low)?? 04/14/2022 05:13 Platelet Count 170 k/mm3 ()?? 04/14/2022 05:13 RDW-SD 51.2 femtoliters (High)?? 04/14/2022 05:13 MPV 12.1 femtoliters ()?? 04/14/2022 05:13 Nucleated RBC (Automated) 0.0 #/100 WBC'S ()?? 04/14/2022 05:13 Abs. NRBC 0.0 k/mm3 ()?? 04/14/2022 05:13 ?? CHEM GENERAL Sodium 136 mmol/L ()?? 04/14/2022 05:13 Potassium 3.4 mmol/L (Low)?? 04/14/2022 05:13 Chloride 104 mmol/L ()?? 04/14/2022 05:13 Bicarbonate Level 22 mmol/L ()?? 04/14/2022 05:13 Anion Gap 10 ()?? 04/14/2022 05:13 Glucose Level 116 mg/dL (High)?? 04/14/2022 05:13 Glucose, POC 242 mg/dL (High)?? 04/14/2022 11:14 BUN 32 mg/dL (High)?? 04/14/2022 05:13 Creatinine-Blood 3.3 mg/dL (High)?? 04/14/2022 05:13 Estimated GFR Creatinine 19 ML/MIN/1.73 M2 ()?? 04/14/2022 05:13 Calcium 7.6 mg/dL (Low)?? 04/14/2022 05:13 Phosphorus 5.3 mg/dL (High)?? 04/13/2022 07:03 Magnesium 1.9 mg/dL ()?? 04/14/2022 05:13 ?? VIROLOGY COVID-19 PCR Specimen Source NASAL ()?? 04/13/2022 15:38 COVID-19 PCR Result NEGATIVE ()?? 04/13/2022 15:38 ? Assessment/Plan ?? 31-year-old female with a past medical history of hypertension, nonischemic cardiomyopathy, HFrEF (40 to 45% in 02/2022), type 2 diabetes mellitus, CKD stage IV, asthma, history of osteomyelitis of the right foot, and legal blindness, recently admitted for??hypertensive urgency on 03/25, discharged on 03/29 who??presented to the ED with shortness of breath, found to have a CHF exacerbation in setting of hypertensive urgency due to medication noncompliance from nausea and vomiting.??Now??with normalsaturation at room air and denies??SOB.??She initially had intractable nausea??in the setting of Ativan treatment. She was tried on Zofran which did not help.??She??had been??unable to take??anything p.o., had not eaten since ,??and??had not be able to take her??p.o. medications.??Currently treating??for hypertension??with IV medications and nitro paste.??Consulted GI??for evaluation??of gastroparesis. She was changed from Zofran to Reglan IV for nausea and vomiting which she began on 04/12/22. Currently on gastroparesis diet as recommended by GI. She has had improvement of nausea and is tolerating mashed solid foods. She??is willing to try home PO antihypertensives and pain regimen, however she did state today that she would like??her medications to be crushed in applesauce??as this is how she does it at home to avoid nausea.?? She states that pills in general??usually give her nausea??and that??otherwise she has been able to tolerate??food very well. No longer on CHF exacerbation.?? Ifshe tolerates??p.o. intake??and p.o. medications tomorrow??and is shown to have??good response with controlled blood pressure??she should be able to be discharged??home. ?? Hypertensive urgency - resolved HFrEF Exacerbation - resolved Non-ischemic cardiomyopathy (EF 40-45%) Shortness of breath - resolved Pulmonary edema Hypertension -better controlled on p.o. regimen Patient presented with progressively worsening shortness of breath for the past 2-3 days prior to admission. Vitals on presentation showed the patient to be hypertensive to the 190s with elevated??proBNP level.?? Consistent with??acute??exacerbation of??chronic heart failure in the setting of hypertension and suspected medication non-adherence (she says the torsemide does not work for her and was having nausea and vomiting for which she stopped taking home medications). Pt has had difficulty taking oral meds due to nausea, however she was willing to try home meds todayas she felt a lot better,??she is wanting to have her Meds crushed??into applesauce as this is how she usually takes them at home to avoid nausea. Good urine output with Lasix 40 IV x1.?Had been??on??Lasix 20 mg IV twice daily however she is now euvolemic with poor PO intake for which we would want to be cautious of MYNOR.? Prior to??introducing home p.o. regimen, patient was hypertensive to 190s, however??now improved to 130s to??150s systolic after trial of home medications. ?? Plan: -Crush all non-extended release medications??into applesauce -Change hydralazine from IV to p.o. 20 mg??3 times daily -D/C'd Nitropaste -Continue oral Meds as below if she can tolerate. -Home Torsemide 20mg daily -Continue aspirin 81mg daily and rosuvastatin 5mg -Continue Coreg??25mg BID -Continue nifedipine 30 mg daily as per cardiology recs on 03/27/2022 -Discontinue home amlodipine upon discharge??given that she is already on CCB with nifedipine -hall monitor; EKG PRN??for chest pain -Monitor daily weights,??I/O's daily -Continue telemetry ?? Nausea - improved Diabetic Gastroparesis Per chart review, appears to be a chronic issue for the patient, worsened??this admission. Does seem to correlate with mood.?? May be gastroparesis in the setting of diabetes, given the patient has had other diabetic complications such as CKD and bilateral??legal blindness??this would not besurprising. Considered obstruction??or constipation, but patient??has had multiple??bowel movements??while hospitalized. Has not eaten anything since ,??she is tolerating clear liquids per RN. EGD reportedly performed at [facility] and normal. ?? Plan: - Reglan 5 mg 3 times daily IV??for up to 2 weeks, monitor QTc. Can transition to PO prior to discharge. - Avoid opiates when possible - Optimal glucose control with glucose less than 200 - GASTROPARESIS DIET: Step 1: Rehydration, Day 1-2 of admission. Sip Gatorade or salty bouillon solution to ingest goal 1-1.5L over 24hr, multivitamin Avoid citrus or highly sweetened drinks. Step 2: Diet advance to soups. Soups with noodles/rice and crackers, 6 small volume meals per day, goal 1500cal/day & maintain /gain weight (daily standing weight) Avoid fatty foods Step 3: Introduction of more solid foods Starches (require less gastric work), white meat. Avoid red meat, fresh vegetables, and Fiber?? - Ativan??0.5 mg IV every 6 hours PRN for nausea & vomiting - Monitor with serial exams ?? MYNOR on CKD IV - stable Baseline ~2.8-3.0. Cr on admission 3.0, last 3.3 Had been on IV diuresis with poor PO intake, likely pre-renal. ?? Plan: -Monitor renal function daily -avoid nephrotoxic medications -Encourage PO fluid??intake ?? Normocytic Anemia Anemia of Chronic Disease Hgb had been 7.1, had improved to 8.4. Now 7.5. Hemodynamically stable.??No active signs of bleeding. Likely 2/2 her CKD; iron workup WNL. ?? Plan: -Daily CBC -transfuse if hgb <7, patient consented ?? Recent fall R sided pain Pt had a recent fall (mechanical)??in the ED waiting room on 04/04, since then she has had right sided pain and a headache. CT head and brain showed no acute intracranial abnormality. Presumed vitreous detachment along the posterior margin of each globe as seen on MRI on 11/27/2021. PE with right side ribs, flank and right hip with palpable tenderness, small bruise over the right hip. Is on oxycodone 5mg at home-> says she cannot take PO right now XR R hip did not show any fx or abnormalities ?? Plan: -Pain management with Tylenol -Dilaudid PO 2mg Q6h PRN -Can consider one-time IV dilaudid if pain intractable with PO ? Prolonged QTc On most recent??EKG QTc was 493. Stop checking daily. ?? Type II Diabetes Most recent A1c of 5.5 in 10/2021. 5.8 04/07 ?? Plan: -Insulin sliding scale lispro and glargine??5 units in AM -hypoglycemic measures??ordered -Goal POC <200. ?? Asthma:?? -albuterol PRN ?? GERD -Continue pantoprazole ?? Quality Measures: VTE prophylaxis: SQH TID Diet: Step 3: Introduction of more solid foods Starches (require less gastric work), white meat. Avoid red meat, fresh vegetables, and Fiber?? Avoid sweet or acidic juices. Code status: Full Ongoing medical necessity: PO medication titration, PO tolerance of food? Patient seen and discussed with attending physician, ??Shanta Thompson MD PGY1- Internal Medicine Pager #[phone] ?? This note was created using [employer] software. Despite my efforts at performing an accurate dictation,this program is prone to speech recognition errors which may result in inaccurate documentation. If clinical questions should arise, please feel free to contact me.?? Jaylen Womack MD: PERFORM Event Display: Progress Note Hospital Authored Date: [id number] Attending Attestation:??I saw and examined the patient with the resident team and reviewed the charton the day of service. ??I have discussed the case and its management??with the resident as documented in the resident note on the day of service.??I agree with the resident's note and plan as documented. Jay Narvaez MD, Steve Regan: PERFORM, MODIFY, MODIFY, MODIFY, MODIFY, MODIFY, MODIFY, MODIFY, MODIFY, MODIFY, MODIFY, MODIFY, MODIFY, MODIFY, MODIFY, MODIFY, MODIFY, MODIFY, MODIFY Event Display: Progress Note Hospital Authored Date: [id number] Patient: ??ROWAN TAYLOR ? Age:??31 Years?Sex:??Female?:??1990?? Subjective Patient states she is feeling a lot better today regarding her nausea and she has not had??an episode of vomiting??since last night. ??She states she is tolerating her diet,??has tried her home p.o. medications??for hypertension and has been tolerating them as well.?? She has had??at least 1 bowel movement daily??which she reports is normal.?? Denies any shortness of breath, chest pain,??nausea at this point,??vomiting, diarrhea, and does not report any other systemic symptoms.?? She does state thatshe has some??right-sided pain??from her prior fall??and that??oxycodone does not help??even at home??so she would like to try Dilaudid??if we are switching her to an oral medication. Review of Systems A full review of systems was performed and is otherwise negative except as mentioned above in HPI. Objective Vital Signs?? Temperature: 97.2 DegF (04/13/22 02:41:00) Temperature Route: Temporal (04/13/22 02:41:00) Pulse Rate: 78 bpm (04/13/22 02:41:00) Respiratory Rate: 18 br/min (04/13/22 04:10:00) Systolic Blood Pressure: 131 mm Hg (04/13/22 04:12:00) Diastolic Blood Pressure: 76 mm Hg (04/13/22 04:12:00) Blood pressure sites: Arm, left (04/13/22 02:41:00) Mean Arterial Pressure: 87 mm Hg (04/13/22 02:41:00) Pulse Pressure: 54 mm Hg (04/13/22 02:41:00) Oxygen Saturation: 99 % (04/13/22 02:41:00) Mode of Delivery (Oxygen): Room air (04/13/22 02:41:00) Early Warning Score: 2 (04/13/22 04:14:14) ? Ventilator Settings?? No qualifying data available. ? Intake/Output? 04/07 18:44 04/13 07:00 04/12 07:00 04/11 07:00 04/10 07:00 ?? 04/13 07:20 04/13 07:20 04/13 06:59 04/12 06:59 04/11 06:59 Intake ? 2530 ?0 ?840 ?120 ?690 Output ?17327 ?0 ? 1400 ? 2550 ? 2200 Net Total ?-9570 ?0 ? -560 ?-2430 ?-1510 ? Urine Count ?2 ?0 ?0 ?0 ?0 Emesis Count ?2 ?0 ?0 ?2 ?0 ? Physical Exam ??General: Patient in no acute distress ?HEENT: Normocephalic, atraumatic, PERRLA, EOMI, moist mucous membranes. ?Respiratory: Bilateral equal air entry, clear to auscultation with no wheezes or crackles. Adequate respiratory rate and effort on room air.?CVS: Regular rate with regular rhythm, S1 and S2 present, no murmurs, rubs or gallops. No JVD.?GI: Soft, non tender, non distended, bowel sounds present, no organomegaly.?Extremities: No cyanosis, pulses present and equal bilaterally. No LE edema noted.?Neuro: Alert and oriented x3. Cranial nerves II-XII grossly intact. Moving all extremities spontaneously. Normal tones, following simple commands.?Derm: No signs of infection, skin is intact with no evidence of erythema, no purulent discharge. ?Psych: Normal mood and affect?? _ Inpatient Medications Medications (24) Active SCHEDULED: (14) Acetaminophen 325 mg Tablet (Acetaminophen Tablet) ??650 mg, By Mouth, Every 6 hours Aspirin 81 mg EC Tablet (aspirin 81 mg oral delayed release tablet) ??81 mg, By Mouth, Daily Carvedilol 25 mg Tablet (Coreg 25 mg oral tablet) ??25 mg, By Mouth, 2 times a day Heparin 5000 units/mL Inj (1 mL) (Heparin Inj) ??5,000 units 1 mL, Subcutaneous Injection, 3 times aday hydrALAZINE 20 mg/mL Inj (hydrALAZINE Inj) ??25 mg 1.25 mL, IV Push Slowly, 3 times a day Insulin Glargine 100 units/mL Inj (Insulin Glargine Inj) ??5 units 0.05 mL, Subcutaneous Injection, Daily in AM Insulin Lispro 100 units/mL Inj (3mL) (Insulin LISPRO Sliding Scale) ??2-10 units, Subcutaneous Injection, 3 times a day before meals Metoclopramide 5 mg/mL Inj (2 mL) (Reglan Inj) ??5 mg, IV Push Slowly, 3 times a day NaCl 0.9% Flush 3ml (NaCL 0.9% Flush) ??3 mL, IV Push, Every 8 hours NIFEdipine 30 mg ER Tablet (NIFEdipine 30 mg oral tablet, extended release) ??30 mg, By Mouth, Daily Nitroglycerin 2% Oint UD (Nitroglycerin 2% Topical) ??2 inches, Topically, Every 6 hours Pantoprazole 40 mg EC Tablet (pantoprazole 40 mg oral delayed release tablet) ??40 mg, By Mouth, 2 times a day Rosuvastatin 5 mg Tablet (Crestor 5 mg oral tablet) ??5 mg, By Mouth, Daily Torsemide 20 mg tablet (torsemide 20 mg oral tablet) ??20 mg 1 tablet, By Mouth, Daily CONTINUOUS: (0) PRN: (10) Albuterol 90mcg/Inhalation Inhaler HFA (albuterol CFC free 90 mcg/inh inhalation aerosol) ??90 mcg 1puffs, Inhalation, Every 4 hours Dextrose Inj Syringe (Dextrose 50% Inj Syringe (25Gm)) ??12.5 Gm, IV Push Slowly, Every 20 minutes Dextrose Inj Syringe (Dextrose 50% Inj Syringe (25Gm)) ??25 Gm, IV Push Slowly, Every 15 minutes Glucose 40% Gel (15 Gm) (Glucose Gel) ??15 Gm, By Mouth, Every 20 minutes Glucose 40% Gel (15 Gm) (Glucose Gel) ??30 Gm, By Mouth, Every 20 minutes HYDROmorphone 2 mg Tablet (HYDROmorphone 2 mg oral tablet) ??2 mg, By Mouth, Every 4 hours Lorazepam 2 mg Inj [...] By Mouth, 2 times a day ? Results Recent Labs BLOOD COUNT & DIFF WBC 6.1 k/mm3 ()?? 04/13/2022 07:03 RBC 2.87 m/mm3 (Low)?? 04/13/2022 07:03 Hgb 7.9 Gm/dL (Low)?? 04/13/2022 07:03 Hct 24.5 % (Low)?? 04/13/2022 07:03 MCV 85.4 femtoliters ()?? 04/13/2022 07:03 MCH 27.5 pg ()?? 04/13/2022 07:03 MCHC 32.2 g/dL (Low)?? 04/13/2022 07:03 Platelet Count 211 k/mm3 ()?? 04/13/2022 07:03 RDW-SD 51.2 femtoliters (High)?? 04/13/2022 07:03 MPV 11.8 femtoliters ()?? 04/13/2022 07:03 Nucleated RBC (Automated) 0.0 #/100 WBC'S ()?? 04/13/2022 07:03 Abs. NRBC 0.0 k/mm3 ()?? 04/13/2022 07:03 ?? CHEM GENERAL Sodium 135 mmol/L ()?? 04/13/2022 07:03 Potassium 3.6 mmol/L ()?? 04/13/2022 07:03 Chloride 101 mmol/L ()?? 04/13/2022 07:03 Bicarbonate Level 22 mmol/L ()?? 04/13/2022 07:03 Anion Gap 12 ()?? 04/13/2022 07:03 Glucose Level 127 mg/dL (High)?? 04/13/2022 07:03 Glucose, POC 135 mg/dL (High)?? 04/13/2022 07:45 BUN 30 mg/dL (High)?? 04/13/2022 07:03 Creatinine-Blood 3.3 mg/dL (High)?? 04/13/2022 07:03 Estimated GFR Creatinine 18 ML/MIN/1.73 M2 ()?? 04/13/2022 07:03 Calcium 8.3 mg/dL (Low)?? 04/13/2022 07:03 Phosphorus 5.3 mg/dL (High)?? 04/13/2022 07:03 Magnesium 1.7 mg/dL ()?? 04/13/2022 07:03 ? Assessment/Plan ?? 31-year-old female with a past medical history of hypertension, nonischemic cardiomyopathy, HFrEF (40 to 45% in 02/2022), type 2 diabetes mellitus, CKD stage IV, asthma, history of osteomyelitis of the right foot, and legal blindness, recently admitted for??hypertensive urgency on 03/25, discharged on 03/29 who??presented to the ED with shortness of breath, found to have a CHF exacerbation in setting of hypertensive urgency due to medication noncompliance from nausea and vomiting.??Now??with normalsaturation at room air and denies??SOB.??She initially had intractable nausea??in the setting of Ativan treatment. She was tried on zofran which did not help.??She??had been??unable to take??anything p.o., had not eaten since ,??and??had not be able to take her??p.o. medications.??Currently treating??for hypertension??with IV medications and nitro paste.??Consulted GI??for evaluation??of gastroparesis. She was changed from Zofran to Reglan IV for nausea and vomiting which she began on 04/12/22. Currently on gastroparesis diet as recommended by GI. She has had improvement of nausea and is tolerating clear liquids. She was willing to try home PO antihypertensives and pain regimen. No longer on CHF exacerbation. ?? Hypertensive urgency - resolved HFrEF Exacerbation - resolved Non-ischemic cardiomyopathy (EF 40-45%) Shortness of breath - resolved Pulmonary edema Hypertension - uncontrolled Patient presented with progressively worsening shortness of breath for the past 2-3 days. Vitals on presentation showed the patient to be hypertensive to the 190s with elevated??proBNP level.?? Consistent with??acute??exacerbation of??chronic heart failure in the setting of hypertension and suspected medication non-adherence (she says the torsemide does not work for her and was having nausea and vomiting for which she stopped taking home medications). Pt has had difficulty taking oral meds due to nausea, however she was willing to try 2 home meds today as she felt a little better. Good urine output with Lasix 40 IV x1.?Had been??on??Lasix 20 mg IV twice daily however she is now euvolemic with poor PO intake for which we would want to be cautious of MYNOR. Still hypertensive to 190s overnight, now improved to 150s systolic after trial of home meds ?? Plan: -Continue hydralazine 25 mg IV TID -Continue??2 inch Nitropaste??for blood pressure every 6 hours -Continue oral meds as below if she can tolerate. -Resume Home Torsemide 20mg daily -Continue aspirin 81mg daily and rosuvastatin 5mg -Continue Coreg??25mg BID -Continue nifedipine 30 mg daily as per cardiology recs on 03/27/2022 -Hold home amlodipine given that she is already on CCB with nifedipine -hall monitor; EKG PRN -Monitor daily weights,??I/O's daily -Continue telemetry -Monitor??O2 sat??and supplement with oxygen as required ?? Nausea - improved Diabetic Gastroparesis Per chart review, appears to be a chronic issue for the patient, worsened??this admission. Does seem to correlate with mood.?? May be gastroparesis in the setting of diabetes, given the patient has had other diabetic complications such as CKD and bilateral??legal blindness??this would not besurprising. Considered obstruction??or constipation, but patient??has had multiple??bowel movements??while hospitalized. Has not eaten anything since ,??she is tolerating clear liquids per RN. EGD reportedly performed at [facility] and normal. ?? Plan: - Reglan 5 mg 3 times daily IV??for up to 2 weeks, monitor QTc - Avoid opiates when possible - Optimal glucose control with glucose less than 200 - GASTROPARESIS DIET: Step 1: Rehydration, Day 1-2 of admission. Sip Gatorade or salty bouillon solution to ingest goal 1-1.5L over 24hr, multivitamin Avoid citrus or highly sweetened drinks. Step 2: Diet advance to soups. Soups with noodles/rice and crackers, 6 small volume meals per day, goal 1500cal/day & maintain /gain weight (daily standing weight) Avoid fatty foods Step 3: Introduction of more solid foods Starches (require less gastric work), white meat Avoid red meat, fresh vegetables, and Fiber?? - Ativan??0.5 mg IV every 6 hours PRN for nausea & vomiting - Monitor with serial exams ?? MYNOR on CKD IV Baseline ~2.8-3.0. Cr on admission 3.0, last 3.3 Had been on IV diuresis until yesterday with poor PO intake, likely pre-renal. ?? Plan: -Monitor renal function daily -avoid nephrotoxic medications -Encourage PO fluid??intake ?? Normocytic Anemia Anemia of Chronic Disease Hgb had been 7.1, had improved to 8.4. Now 7.9. Hemodynamically stable.??No active signs of bleeding. Likely 2/2 her CKD; iron workup WNL. ?? Plan: -Daily CBC -transfuse if hgb <7, patient consented ?? Recent fall R sided pain Pt had a recent fall (mechanical)??in the ED waiting room on 04/04, since then she has had right sided pain and a headache. CT head and brain showed no acute intracranial abnormality. Presumed vitreous detachment along the posterior margin of each globe as seen on MRI on 11/27/2021. PE with right side ribs, flank and right hip with palpable tenderness, small bruise over the right hip. Is on oxycodone 5mg at home-> says she cannot take PO right now XR R hip did not show any fx or abnormalities ?? Plan: -Pain management with Tylenol -D/C IV Dilaudid and PO oxycodone??PRN -Will transition to Dilaudid PO 2mg Q6h PRN ? Prolonged QTc On most recent??EKG QTc was 503.?Daily EKG. ?? Type II Diabetes Most recent A1c of 5.5 in 10/2021. 5.8 04/07 ?? Plan: -Insulin sliding scale lispro and glargine??5 units in AM -hypoglycemic measures??ordered -Goal POC <200. ?? Asthma:?? -albuterol PRN ?? GERD -Continue pantoprazole ?? Quality Measures: VTE prophylaxis: SQH TID Diet: Step 2: Diet advance to soups. Soups with noodles/rice and crackers, advance as described above. Avoid sweet or acidic juices. Code status: Full Ongoing medical necessity: Intractable nausea with no PO intake. ?? Patient seen and discussed with attending physician, ??Shanta Thompson MD PGY1- Internal Medicine Pager #[phone] ?? This note was created using [employer] software. Despite my efforts at performing an accurate dictation,this program is prone to speech recognition errors which may result in inaccurate documentation. If clinical questions should arise, please feel free to contact me.?? Shanta CARLSON [place]: PERFORM Event Display: Progress Note Hospital Authored Date: [id number] Attending Attestation:??I saw and examined the patient with the resident team and reviewed the charton the day of service. ??I have discussed the case and its management??with the resident as documented in the resident note on the day of service.??I agree with the resident's note and plan as documented.?? If tolerating meds oral meds and bp remains stable, can dc nitro paste.?? Note Michael Eaton RN: PERFORM Event Display: Discharge/Transfer Note Hospital Authored Date: [id number] Nursing Discharge Note Entered On: 04/15/2022 14:44 EST Performed On: 04/15/2022 14:37 EST by Michael Eaton RN Nursing Discharge Note 2 Discharge Time : 04/15/2022 14:37 EST Discharge Level of Care at Discharge : Home/[facility]ci/[facility] Care Patient Left Unit Via : Wheelchair Patient Accompanied Off Unit with : Other: nursing staff asssited pt to outpt pharmacy & [facility]istan [facility] car - her family is driving her home DC Instructions Provided & Signed by Pt : Yes Patient Understands D/C Instructions : Yes Verbalized Understanding of D/C Plan By : Patient Patient Instructions Discharge Signed : Yes Discharge Comments : see discharge instructions Did Pt have Specialty Bed or Wound Vac : No Michael Eaton RN - 04/15/2022 14:42 Jose Manuel Gifford DO: PERFORM, MODIFY, MODIFY, MODIFY, MODIFY Event Display: Discharge/Transfer Note Hospital Authored Date: [id number] Patient: ??ROWAN TAYLOR ? Age:??31 Years?Sex:??Female?:??1990?? Patient Information Discharge Location: Primary Care Physician: Carolina Hsu NP Admit Date/Time: 04/07/22 18:44 Discharge Disposition Discharge Disposition: Home: No Services Discharge Diagnosis Principal diagnosis: Hypertensive urgency ?? Secondary diagnoses: Acute on chronic heart failure with reduced ejection fraction Essential hypertension Diabetic gastroparesis Acute kidney injury on chronic kidney disease Normocytic anemia Type 2 diabetes mellitus Asthma GERD _ Discharge Medications Acetaminophen (acetaminophen 325 mg oral capsule)?2?capsule?650?Milligram?By Mouth?Every 4 hours?as needed?as needed for pain Albuterol (Albuterol (Eqv-ProAir HFA) 90 mcg/inh inhalation aerosol)?2?puff(s)?Inhalation?Every 4 hours Aspirin (Aspirin Low Dose 81 mg oral delayed release tablet)?1?tab(s)?81?Milligram?ByMouth?Daily Carvedilol (Coreg 25 mg oral tablet)?25?Milligram?1?tablet?By Mouth?2 times a day Diclofenac Topical (diclofenac 1% topical gel)?2?gram?Topically?4 times a day Durable Medical Equipment ([place], 31 G x 5 mm BD Ultra Fine III)?See Instructions?for 30?Days?use as directed for Type 2 Diabetes Mellitus Fluticasone Nasal (Flonase 50 mcg/inh nasal spray)?1?spray(s)?Nares, Both?2 times a day hydrALAZINE (hydrALAZINE 25 mg oral tablet)?25?Milligram?1?tablet?By Mouth?3 timesa day Hydromorphone (HYDROmorphone 2 mg oral tablet)?1?tab(s)?2?Milligram?By Mouth?Every4 hours?as needed?Pain , Severe?for 5?Days Insulin Aspart (NovoLOG FlexPen 100 units/mL injectable solution)?11-12 UNITS?Subcutaneous Injection?3 times a day before meals?(NOT TAKING & HASN'T IN MONTHS) Insulin Detemir (Levemir FlexTouch 100 units/mL subcutaneous solution)?8?unit(s)?Subcutaneous Injection?Daily in AM Metoclopramide (Reglan 5 mg oral tablet)?1?tab(s)?5?Milligram?By Mouth?4 times a day?for 14?Days NIFEdipine (NIFEdipine 30 mg oral tablet, extended release)?30?Milligram?1?tablet?By Mouth?Daily?for 30?Days Ondansetron (ondansetron 4 mg oral tablet)?1?tab(s)?4?Milligram?By Mouth?Every 8 hours?as needed?Nausea & Vomiting Pantoprazole (pantoprazole 40 mg oral delayed release tablet)?1?tab(s)?40?Milligram?By Mouth?Daily Rosuvastatin (Crestor 5 mg oral tablet)?1?tab(s)?5?Milligram?By Mouth?Daily Scopolamine (scopolamine 1 mg/72 hr transdermal film, extended release)?1?Film?Topically?Every 72 hours torsemide (torsemide 20 mg oral tablet)?1?tab(s)?20?Milligram?By Mouth?Daily ? Medications Started Hydromorphone (HYDROmorphone 2 mg oral tablet)?1?tab(s)?2?Milligram?By Mouth?Every4 hours?as needed?Pain , Severe?for 5?Days Metoclopramide (Reglan 5 mg oral tablet)?1?tab(s)?5?Milligram?By Mouth?4 times a day?for 14?Days Medications Discontinued Amlodipine oxycodone Doses Changed hydrALAZINE (hydrALAZINE 25 mg oral tablet)?25?Milligram?1?tablet?By Mouth?3 timesa day PCP Follow-Up/Heads-Up 1. ??Patient presented to the hospital with hypertensive urgency in the setting of not being able totake her??hypertension medications due to severe nausea and vomiting which was likely caused by diabetic gastroparesis.?? Patient had improvement in her ability to tolerate p.o. intake with dietary modifications and??starting??Reglan.? 2. Patient had severe pain throughout the duration of the hospital stay??and patient stated that??oxycodone was insufficient to treat her pain. ??She was able to be transition to a p.o.??hydromorphone regimen and this has been prescribed??for??a total of??5 days on discharge. ?? 3. ??Please ensure that the patient follows up closely with??cardiology Future Appointments Sunday 12:45 PM EST ?? With: Robin CARLSON, Jared Walters Where: [facility] [address] [place] [address]- 2022 3:40 PM EDT ?? With: Inna Ambrose DO Where: [facility] [address] [place] [address]- Hospital Course 31-year-old female with a past medical history of hypertension, nonischemic cardiomyopathy, HFrEF (40 to 45% in 02/2022), type 2 diabetes mellitus, CKD stage IV, asthma, history of osteomyelitis of theright foot, and legal blindness, recently admitted for hypertensive urgency on 03/25, discharged on 03/29 who presented to the ED with shortness of breath, found to have a CHF exacerbation in setting of hypertensive urgency due to medication noncompliance from nausea and vomiting.?Patient's hospital stay was complicated by??diabetic gastroparesis??improved with??Reglan.??Patient also had??improveme nt in her??oral intake after dietary??changes as recommended by??gastroenterology.??Patient's hypertension was improved after she was able to better tolerate her normal??p.o. antihypertensive regimen.??Patient has??chronic severe abdominal pain??from??gastroparesis and this has been improved on a new p ain??medication regimen.??On the day of discharge, the patient is afebrile and hemodynamically stable??and is being discharged home.?Hypertensive urgency - resolved Acute on chronic heart failure with reduced ejection fraction - resolved Non-ischemic cardiomyopathy (EF 40-45%) Shortness of breath - resolved Pulmonary edema Hypertension -better controlled on p.o. regimen Patient presented with progressively worsening shortness of breath for the past 2-3 days prior to admission. Vitals on presentation showed the patient to be hypertensive to the 190s with elevated??proBNP level.?? Consistent with??acute??exacerbation of??chronic heart failure in the setting of hypertension and suspected medication non-adherence (she says the torsemide does not work for her and was having nausea and vomiting for which she stopped taking home medications). Now euvolemic and patient is able to better tolerate her medications??when they are crushed into applesauce Hypertension improved now the patient is able to take some of her home medications ?? Recommendations: -Crush all non-extended release medications??into applesauce -Hydralazine dose increased -Home Torsemide 20mg daily -Continue aspirin 81mg daily and rosuvastatin 5mg -Continue Coreg??25mg BID -Continue nifedipine 30 mg daily as per cardiology recs on 03/27/2022 -Discontinue home amlodipine upon discharge??given that she is already on CCB with nifedipine ?? Diabetic Gastroparesis Per chart review, appears to be a chronic issue for the patient, worsened??this admission. Does seem to correlate with mood.?? May be gastroparesis in the setting of diabetes, given the patient has had other diabetic complications such as CKD and bilateral??legal blindness??this would not besurprising. ?? Recommendations: -Follow-up with GI outpatient - Avoid opiates when possible - Optimal glucose control with glucose less than 200 - GASTROPARESIS DIET:??Introduction of more solid foods Starches (require less gastric work), white meat. Avoid red meat, fresh vegetables, and Fiber? MYNOR on CKD IV - stable Baseline ~2.8-3.0. Cr on admission 3.0, last 3.3 Had been on IV diuresis with poor PO intake, likely pre-renal. ?? Recommendations: ???Home torsemide ?? Normocytic Anemia Anemia of Chronic Disease Hgb had been 7.1, had improved to 8.4. Now 7.5. Hemodynamically stable.??No active signs of bleeding. Likely 2/2 her CKD; iron workup WNL. ?? Recommendations: Follow-up with PCP ?? Recent fall R sided pain Pt had a recent fall (mechanical)??in the ED waiting room on 04/04, since then she has had right sided pain and a headache. CT head and brain showed no acute intracranial abnormality. Presumed vitreous detachment along the posterior margin of each globe as seen on MRI on 11/27/2021. Significant??pain??which was unable to be managed with p.o. oxycodone XR R hip did not show any fx or abnormalities ?? Recommendations: Continue Tylenol P.o. Dilaudid prescribed for total of 5 days ?? Type II Diabetes Most recent A1c of 5.5 in 10/2021. 5.8 04/07 ?? Recommendations: Resume home insulin??regimen -Insulin sliding scale lispro and glargine??5 units in AM ?? Asthma:?? -albuterol PRN ?? GERD -Continue pantoprazole ?? Objective Vital Signs?? Temperature: 98.4 DegF (04/15/22 07:45:00) Temperature Route: Temporal (04/15/22 07:45:00) Pulse Rate:??105 bpm??High (04/15/22 10:38:00) Respiratory Rate: 18 br/min (04/15/22 07:45:00) Systolic Blood Pressure:??156 mm Hg??High (04/15/22 10:38:00) Systolic Blood Pressure:??156 mm Hg??High (04/15/22 10:38:00) Diastolic Blood Pressure: 68 mm Hg (04/15/22 10:38:00) Diastolic Blood Pressure: 68 mm Hg (04/15/22 10:38:00) Blood pressure sites: Leg, right (04/15/22 07:45:00) Mean Arterial Pressure: 97 mm Hg (04/15/22 07:45:00) Pulse Pressure: 88 mm Hg (04/15/22 07:45:00) Oxygen Saturation:??93 %??Low (04/15/22 07:45:00) Mode of Delivery (Oxygen): Room air (04/15/22 07:45:00) Early Warning Score: 3 (04/15/22 11:28:48) ? . Physical Exam ?? General Appearance: The patient is an adult female??and in NAD. Cardiovascular: RRR S1 and S2 heard with no M/R/G. No JVD. Respiratory: ??Breath sounds clear to auscultation bilaterally. No wheezing. Good air movement throughout both lungs. GI: Soft. Nontender and nondistended. Normal bowel sounds present throughout abdomen.?? MSK: ??No edema or erythema in the lower extremities R foot toes amputation, L foot 4th/5th transmetatarsal amputation.?? Neuro: ??No slurred speech. ??Patient seen moving their upper and lower extremities independently. Psych: Alert and oriented x3. Appropriate and pleasant. ?? Consultants Nolberto CARLSON, Michael?? -gastroenterology Patient Education Titles Chronic Kidney Disease (CKD)?? What Is High Blood Pressure??? Gastroparesis?? Follow-Up Appointments Added Follow Up ?Time Frame ?Comments Shadi MULTIGRAPH OPERATOR, Carolina?1 to 2 weeks Patient Instructions You presented to the hospital with significantly elevated blood pressure which was likely due to being unable to tolerate your normal medications from nausea.?? The cause of the nausea and vomiting was likely gastroparesis which is when your stomach is unable to properly move food forward into your intestines and this is likely from your diabetes.?? With changes in your medication regimen your ability to tolerate food and your medications improved.?? You are being discharged home some new medications including a change in your pain regimen.?? If you have further episodes of chest pain, severe headache, loss of consciousness, or trouble breathing you should seek medical attention immediately. Post Discharge Care Activity: Ambulate with assistance ??3 times a day ??unless otherwise specified Code Status: ?? Full Resuscitation Prognosis: Fair Results Discharge Labs BLOOD BANK Blood Type A Positive ()?? 04/08/2022 16:48 Antibody Screen Negative ()?? 04/08/2022 16:48 ?? BLOOD COUNT & DIFF WBC 5.1 k/mm3 ()?? 04/14/2022 05:13 RBC 2.70 m/mm3 (Low)?? 04/14/2022 05:13 Hgb 7.5 Gm/dL (Low)?? 04/14/2022 05:13 Hct 23.3 % (Low)?? 04/14/2022 05:13 MCV 86.3 femtoliters ()?? 04/14/2022 05:13 MCH 27.8 pg ()?? 04/14/2022 05:13 MCHC 32.2 g/dL (Low)?? 04/14/2022 05:13 Platelet Count 170 k/mm3 ()?? 04/14/2022 05:13 RDW-SD 51.2 femtoliters (High)?? 04/14/2022 05:13 MPV 12.1 femtoliters ()?? 04/14/2022 05:13 Nucleated RBC (Automated) 0.0 #/100 WBC'S ()?? 04/14/2022 05:13 Abs. NRBC 0.0 k/mm3 ()?? 04/14/2022 05:13 Abs. Neut 4.3 k/mm3 ()?? 04/07/2022 16:09 Abs. Lymph 0.7 k/mm3 (Low)?? 04/07/2022 16:09 Abs. [place] 0.4 k/mm3 ()?? 04/07/2022 16:09 Abs. Eo 0.2 k/mm3 ()?? 04/07/2022 16:09 Abs. Baso 0.0 k/mm3 ()?? 04/07/2022 16:09 Neut % 76.2 % (High)?? 04/07/2022 16:09 Lymph % 12.9 % (Low)?? 04/07/2022 16:09 [place] % 6.8 % ()?? 04/07/2022 16:09 Eos % 3.2 % ()?? 04/07/2022 16:09 Baso % 0.4 % ()?? 04/07/2022 16:09 Imm Gran 0.5 % ()?? 04/07/2022 16:09 Abs. Imm Gran 0.0 k/mm3 ()?? 04/07/2022 16:09 ?? CARDIAC Nt-Probnp 45226 pg/mL (High)?? 04/07/2022 16:09 High Sensitivity Troponin (HSTnT) 143 ng/L (Critical)?? 04/09/2022 18:27 ?? CHEM GENERAL Sodium 136 mmol/L ()?? 04/14/2022 05:13 Potassium 3.4 mmol/L (Low)?? 04/14/2022 05:13 Chloride 104 mmol/L ()?? 04/14/2022 05:13 Bicarbonate Level 22 mmol/L ()?? 04/14/2022 05:13 Anion Gap 10 ()?? 04/14/2022 05:13 Glucose Level 116 mg/dL (High)?? 04/14/2022 05:13 Glucose, POC 263 mg/dL (High)?? 04/15/2022 11:27 Hemoglobin A1C (Monitoring) 5.8 % (High)?? 04/07/2022 16:09 BUN 32 mg/dL (High)?? 04/14/2022 05:13 Creatinine-Blood 3.3 mg/dL (High)?? 04/14/2022 05:13 Estimated GFR Creatinine 19 ML/MIN/1.73 M2 ()?? 04/14/2022 05:13 Calcium 7.6 mg/dL (Low)?? 04/14/2022 05:13 Phosphorus 5.3 mg/dL (High)?? 04/13/2022 07:03 Magnesium 1.9 mg/dL ()?? 04/14/2022 05:13 Protein, Total 6.2 Gm/dL ()?? 04/07/2022 16:09 Albumin 3.2 Gm/dL (Low)?? 04/07/2022 16:09 AG Ratio 1.1 ()?? 04/07/2022 16:09 Alkaline Phosphatase 68 units/L ()?? 04/07/2022 16:09 Lipase 31 units/L ()?? 04/07/2022 16:09 AST (SGOT) 11 units/L ()?? 04/07/2022 16:09 ALT (SGPT) 8 units/L ()?? 04/07/2022 16:09 Bilirubin, Total 0.4 mg/dL ()?? 04/07/2022 16:09 Lactate 1.5 mmol/L ()?? 04/09/2022 08:26 Iron Level 49 mcg/dL ()?? 04/09/2022 08:26 Iron Binding Capacity, Unsaturated 186 mcg/dL ()?? 04/09/2022 08:26 Iron Binding Capacity, Estimated Total 235 mcg/dL ()?? 04/09/2022 08:26 % Iron Saturation 21 % ()?? 04/09/2022 08:26 Ferritin Level 60 ng/mL ()?? 04/09/2022 08:26 ?? HEME OTHER Hold Blue Top SPECIMEN DISCARDED AFTER 4 HOURS. ()?? 04/07/2022 16:09 ? TOXICOLOGY/TDM Cannabinoid Screen, Urine NONE DETECTED ()?? 04/09/2022 23:11 Cocaine Metabolite Screen, Urine NONE DETECTED ()?? 04/09/2022 23:11 ?? UA/URINALYSIS Appear/Color, Urine COLORLESS ()?? 04/08/2022 02:45 Specific [place], Urine 1.009 ()?? 04/08/2022 02:45 pH, Urine 6.5 ()?? 04/08/2022 02:45 Albumin, Urine 2+ (Abnormal)?? 04/08/2022 02:45 Glucose, Urine TRACE (Abnormal)?? 04/08/2022 02:45 Ketones, Urine NEGATIVE ()?? 04/08/2022 02:45 Bilirubin, Urine NEGATIVE ()?? 04/08/2022 02:45 Hemoglobin, Urine NEGATIVE ()?? 04/08/2022 02:45 Nitrite, Urine NEGATIVE ()?? 04/08/2022 02:45 Leukocyte, Urine NEGATIVE ()?? 04/08/2022 02:45 Urobilinogen NORMAL mg/dL ()?? 04/08/2022 02:45 WBC's, Urine 1 /HPF ()?? 04/08/2022 02:45 RBC's, Urine 2 /HPF ()?? 04/08/2022 02:45 Bacteria SLIGHT HPF (Abnormal)?? 04/08/2022 02:45 Squamous Epith <1 /HPF ()?? 04/08/2022 02:45 Mucus SLIGHT /LPF ()?? 04/08/2022 02:45 Hold Urine Culture Testing available 48 hours from time of collection. ()?? 04/08/2022 02:45 ? URINE OTHER Urine, NEGATIVE (Abnormal)?? 04/08/2022 02:45 ? VIROLOGY COVID-19 by RT-PCR NEGATIVE ()?? 04/07/2022 16:01 COVID-19 PCR Specimen Source NASAL ()?? 04/13/2022 15:38 COVID-19 PCR Result NEGATIVE ()?? 04/13/2022 15:38 ? Microbiology ?? COVID-19 (Novel Coronavirus), Rapid PCR?? Completed?? Source: Nasal Body Site: Nose Collected Dt/Tm: 04/07/2022 15:23 Last Updated Dt/Tm: 04/07/2022 17:49 COVID-19 (2019 Novel Coronavirus) PCR?? Completed?? Source: Nasal Body Site: Nose Collected Dt/Tm: 04/10/2022 05:15 Last Updated Dt/Tm: 04/10/2022 18:02 COVID-19 (2019 Novel Coronavirus) PCR?? Completed?? Source: Nasal Body Site: Nose Collected Dt/Tm: 04/13/2022 15:38 Last Updated Dt/Tm: 04/14/2022 02:54 ?Patient's??condition and management discussed with attending physician, Dr. Sibley. ?? Jose Manuel Hills, DO PGY-3, Internal Medicine Pager # [phone] ?? Angelito BETH, Michael: PERFORM Event Display: Patient Education/Instruction Authored Date: [id number] Inpatient Adult Discharge Instructions [address] [address] Name: ROWAN RANGEL : 1990 Visit: 04/07/2022 18:44:00 Current Date: 04/15/2022 13:57 Account: [id number] Inpatient Adult Discharge Instructions We would like [...] and their families. Surveys are administered by [employer] ?? If further treatment with your primary care physician or another doctor is recommended, it is important for you to keep the appointment. Call your primary care physician or return to the Emergency Department immediately if your condition worsens, fails to improve, or new symptoms develop. If you need to find a doctor, you can call [facility] [employer] for a referral at [phone] or toll free at [phone] ([phone]) or log in to [email or web address].. ?? You can view and manage your care through the patient portal or by using a health care calos of your choosing. [employer] is a website that allows you to securely view your medical information including your hospital discharge summary, office visit summaries, medications and follow-up visits. You can also request appointments, renew medications, and request access to your medical information using a health care calos of your choosing, or just ask a question. You can enroll at [email or web address] or register during your next office visit. You have been discharged from [facility], Patient Care Unit: M7. If you have any questions regarding these instructions after you leave, please call us and we will be happy to assist you. [facility] Your Care Team Attending Physician Toñito CARLSON, Periklis Consulting Providers Karen Casillas Discharging Providers Jose Manuel Hills DO Reason for Admission SOB/pleural pain x couple days o inspiration and expiration, hx of pleurel effusions. Home O2 2lnc. Your Diagnosis CHF, hypoxia Tests Performed Below is a partial list of the tests performed during your hospitalization. You may have had other tests and procedures not included in this list. Please discuss all test results with your provider. Basic Metabolic Panel BUN CBC CBC w/ Differential Comprehensive Metabolic Panel COVID-19 (2019 Novel Coronavirus) PCR COVID-19 (Novel Coronavirus), Rapid PCR CREATININE ELECTROLYTES FERRITIN GLUCOSE POC HEMOGLOBIN A1C High Sensitivity Troponin T Hold Blue Top Tube IRON & TIBC LACTIC ACID Lipase Magnesium Level Phosphorus Level Test Urine ProBNP Troponin T, High Sensitivity Type and Screen Urinalysis w/hold for Urine Culture Urine Cocaine Screen Urine Marijuana Screen Urine MDMA?-- Results Pending -- CT Head/Brain W/O Contrast XR Chest 2 Views Frontal and Lat XR Hip w/Pelvis 2-3 View Right ? You will be contacted within 72 hours with your results. Primary Care Provider Carolina Hsu NP Advance Directive Health Care Proxy on File Yes - Health Care Proxy Discharge Vitals Temperature: 98.4 DegF Height: 168 cm Pulse Rate:??105 bpm??High Weight: 79.8 kg Respiratory Rate: 18 br/min Body Mass Index:??32.24 kg/m2??Critical Systolic Blood Pressure:??156 mm Hg??High Body surface area: 2.06 Systolic Blood Pressure:??156 mm Hg??High ?? Diastolic Blood Pressure: 68 mm Hg ?? Diastolic Blood Pressure: 68 mm Hg ?? Oxygen Saturation:??93 %??Low ?? Studies Pending All tests and labs ordered during this hospital stay have been completed unless listed below. Pleasediscuss all pending results with your provider listed above in these instructions. ?? Add On Lab Order Basic Metabolic Panel Hold Lavender Tube (BB) Methylenedioxymethamphetamine Urine (Urine MDMA) What to do next Instructions From Your Doctor You presented to the hospital with significantly elevated blood pressure which was likely due to being unable to tolerate your normal medications from nausea.?? The cause of the nausea and vomiting was likely gastroparesis which is when your stomach is unable to properly move food forward into your intestines and this is likely from your diabetes.?? With changes in your medication regimen your ability to tolerate food and your medications improved.?? You are being discharged home some new medications including a change in your pain regimen.?? If you have further episodes of chest pain, severe headache, loss of consciousness, or trouble breathing you should seek medical attention immediately. Discharge Orders Activity:??Ambulate with assistance 3 times a day unless otherwise specified Code Status:?? Full Resuscitation Prognosis:??Fair Scheduled Follow-Up Appointments Sunday 12:45 PM EST ?? With: Robin CARLSON, Jared Walters Where: [facility] [address] [place] [address]- 2022 3:40 PM EDT ?? With: Inna Ambrose DO Where: [facility] [address] [place] [address]- You Need to Schedule the Following Appointments Follow Up with??Carolina Hsu NP When??Within 1 to 2 weeks Where: [address] [place] [address]- Discharge Medications ROWAN TAYLOR :1990 Visit Date:04/07/2022 Medications: Please continue your medications until treatment is completed or stopped by your provider. Medications not listed below should be discontinued. Discuss any questions related to medications with your provider. What How Much When Instructions Next Dose New Hydromorphone (HYDROmorphone 2 mg oral tablet) 1 tab(s) Oral Every 4 hours as needed for Pain , Severe Duration: 5 Days Pickup at [facility] today 04/15 New Metoclopramide (Reglan 5 mg oral tablet) 1 tab(s) Oral 4 times a day Duration: 14 Days Pickup at [facility] 3 today 04/15 Changed hydrALAZINE (hydrALAZINE 25 mg oral tablet) 1 tab(s) Oral 3 times a day this afternoon 04/15 Unchanged Acetaminophen (acetaminophen 325 mg oral capsule) 2 capsule Oral Every 4 hours as needed for as needed for pain today 04/15 Unchanged Albuterol (Albuterol (Eqv-ProAir HFA) 90 mcg/ inh inhalation aerosol) 2 puff(s) Inhalation Every 4 hours today 04/15 Unchanged Aspirin (Aspirin Low Dose 81 mg oral delayed release tablet) 1 tab(s) Oral Daily tomorrow 04/16 Unchanged Carvedilol (Coreg 25 mg oral tablet) 1 tab(s) Oral Twice a day ton04/15 Unchanged Diclofenac Topical (diclofenac 1% topical gel) 2 gram Topically 4 times a day today 04/15 Unchanged Durable Medical Equipment (Pen [place], 31 G x 5 mm BD Ultra Fine III) See instructions Duration: 30 Days use as directed for Type 2 Diabetes Mellitus ?? use today 04/15 Unchanged Fluticasone Nasal (Flonase 50 mcg/ inh nasal spray) 1 spray(s) Nares, Both Twice a day tonight 04/15 Unchanged Insulin Aspart (NovoLOG FlexPen 100 units/ mL injectable solution) 11-12 UNITS Subcutaneous Injection 3 times a day before meals (NOT TAKING & HASN'T IN MONTHS) ?? today 04/15 Unchanged Insulin Detemir (Levemir FlexTouch 100 units/ mL subcutaneous solution) 8 unit(s) Subcutaneous Injection Daily in the morning tomorrow 04/16 Unchanged NIFEdipine (NIFEdipine 30 mg oral tablet, extended release) 1 tab(s) Oral Daily Duration: 30 Days tomorrow 04/16 Unchanged Ondansetron (ondansetron 4 mg oral tablet) 1 tab(s) Oral Every 8 hours as needed for Nausea & Vomiting may take today 04/15 Unchanged Pantoprazole (pantoprazole 40 mg oral delayed release tablet) 1 tab(s) Oral Daily tomorrow 04/16 Unchanged Rosuvastatin (Crestor 5 mg oral tablet) 1 tab(s) Oral Daily at bedtime tonight 04/15 Unchanged Scopolamine (scopolamine 1 mg/ 72 hr transdermal film, extended release) 1 Film Topically Every 72 hours take per your usual schedule Unchanged torsemide (torsemide 20 mg oral tablet) 1 tab(s) Oral Daily tomorrow 04/15 Pharmacy Information [facility]: [address], [place] [id number] [phone] ?? What How Much When Comments Stop Taking Amlodipine (amLODIPine 5 mg oral tablet) 1 tab(s) Oral Daily Stop Taking Oxycodone (oxyCODONE 5 mg oral tablet) 1 tab(s) Oral Every 6 hours as needed for as needed for pain Test Results Below is a partial list of the most recent Laboratory test results done prior to this discharge. You may have had other tests and procedures not included in this list. Please discuss all test results with your provider. Basic Metabolic Panel (04/14/2022) ???Sodium - 136 mmol/L???Potassium - 3.4 mmol/L???Chloride - 104 mmol/L???Bicarbonate Level - 22 mmol/L???Anion Gap - 10???Glucose Level - 116 mg/dL???BUN - 32 mg/dL???Creatinine-Blood - 3.3 mg/dL???Estimated GFR Creatinine - 19 ML/MIN/1.73 M2???Calcium - 7.6 mg/dL BUN (04/09/2022) ???BUN - 43 mg/dL CBC (04/14/2022) ???WBC - 5.1 k/mm3???RBC - 2.70 m/mm3???Hgb - 7.5 Gm/dL???Hct - 23.3 %???MCV - 86.3 femtoliters???MCH - 27.8 pg???MCHC - 32.2 g/dL???Platelet Count - 170 k/mm3???RDW-SD - 51.2 femtoliters???MPV - 12.1 femtoliters???Nucleated RBC (Automated) - 0.0 #/100 WBC'S???Abs. NRBC - 0.0 k/mm3 CBC w/ Differential (04/07/2022) ???WBC - 5.6 k/mm3???RBC - 2.83 m/mm3???Hgb - 7.6 Gm/dL???Hct - 24.7 %???MCV - 87.3 femtoliters???MCH - 26.9 pg???MCHC - 30.8 g/dL???Platelet Count - 250 k/mm3???RDW-SD - 51.8 femtoliters???MPV - 11.7 femtoliters???Nucleated RBC (Automated) - 0.0 #/100 WBC'S???Abs. NRBC - 0.0 k/mm3???Abs. Neut - 4.3 k/ mm3???Abs. Lymph - 0.7 k/mm3???Abs. [place] - 0.4 k/mm3???Abs. Eo - 0.2 k/mm3???Abs. Baso - 0.0 k/mm3???Neut % - 76.2 %???Lymph % - 12.9 %???[place] % - 6.8 %???Eos % - 3.2 %???Baso % - 0.4 %???Imm Gran - 0.5 %???Abs. Imm Gran - 0.0 k/mm3 Comprehensive Metabolic Panel (04/07/2022) ???Sodium - 138 mmol/L???Potassium - 5.1 mmol/L???Chloride - 107 mmol/L???Bicarbonate Level - 21 mmol/L???Anion Gap - 10???Glucose Level - 143 mg/dL???BUN - 41 mg/dL???Creatinine-Blood - 3.0 mg/dL???Estimated GFR Creatinine - 21 ML/MIN/1.73 M2???Calcium - 8.3 mg/dL???Protein, Total - 6.2 Gm/dL???Albumin - 3.2 Gm/dL???AG Ratio - 1.1???Alkaline Phosphatase - 68 units/L???AST (SGOT) - 11 units/L???ALT (SGPT) - 8 units/L???Bilirubin, Total - 0.4 mg/dL COVID-19 (2019 Novel Coronavirus) PCR (04/13/2022) ???COVID-19 PCR Specimen Source - NASAL???COVID-19 PCR Result - NEGATIVE COVID-19 (Novel Coronavirus), Rapid PCR (04/07/2022) ???COVID-19 by RT-PCR - NEGATIVE CREATININE (04/09/2022) ???Creatinine-Blood - 2.9 mg/dL???Estimated GFR Creatinine - 21 ML/MIN/1.73 M2 ELECTROLYTES (04/09/2022) ???Sodium - 136 mmol/L???Potassium - 5.1 mmol/L???Chloride - 106 mmol/L???Bicarbonate Level - 20 mmol/L???Anion Gap - 10 FERRITIN (04/09/2022) ???Ferritin Level - 60 ng/mL GLUCOSE POC (04/15/2022) ???Glucose, POC - 263 mg/dL HEMOGLOBIN A1C (04/07/2022) ???Hemoglobin A1C (Monitoring) - 5.8 % High Sensitivity Troponin T (04/09/2022) ???High Sensitivity Troponin (HSTnT) - 143 ng/L Hold Blue Top Tube (04/07/2022) ???Hold Blue Top - SPECIMEN DISCARDED AFTER 4 HOURS. IRON & TIBC (04/09/2022) ???Iron Level - 49 mcg/dL???Iron Binding Capacity, Unsaturated - 186 mcg/dL???Iron Binding Capacity,Estimated Total - 235 mcg/dL???% Iron Saturation - 21 % LACTIC ACID (04/09/2022) ???Lactate - 1.5 mmol/L Lipase (04/07/2022) ???Lipase - 31 units/L Magnesium Level (04/14/2022) ???Magnesium - 1.9 mg/dL Phosphorus Level (04/13/2022) ???Phosphorus - 5.3 mg/dL Test Urine (04/08/2022) ???Urine, - NEGATIVE ProBNP (04/07/2022) ???Nt-Probnp - 87160 pg/mL Troponin T, High Sensitivity (04/09/2022) ???High Sensitivity Troponin (HSTnT) - 131 ng/L Type and Screen (04/08/2022) ???Blood Type - A Positive???Antibody Screen - Negative Urinalysis w/hold for Urine Culture (04/08/2022) ???Appear/Color, Urine - COLORLESS???Specific [place], Urine - 1.009???pH, Urine - 6.5???Albumin, Urine - 2+???Glucose, Urine - TRACE???Ketones, Urine - NEGATIVE???Bilirubin, Urine - NEGATIVE???Hemoglobin, Urine - NEGATIVE???Nitrite, Urine - NEGATIVE???Leukocyte, Urine - NEGATIVE???Urobilinogen - NORMAL? ?WBC's, Urine - 1 /HPF? ?RBC's, Urine - 2 /HPF? ?Bacteria - SLIGHT? ?Squamous Epith - <1 /HPF? ?Mucus - SLIGHT???Hold Urine Culture - Testing available 48 hours from time of collection. Urine Cocaine Screen (04/09/2022) ???Cocaine Metabolite Screen, Urine - NONE DETECTED Urine Marijuana Screen (04/09/2022) ???Cannabinoid Screen, Urine - NONE DETECTED Allergies (NKA means No Known Allergies) Zosyn??(angioedema) gabapentin??(Itching of tongue) traMADol??(Itching of tongue) morphine??(Itching) vancomycin??(Tightness in throat) Problems Active Problems??(15) Asthma?? Blindness of right eye?? Cardiac disease during , antepartum?? Care Coordination [facility], Hakan Angel, CC ?? CKD [...] Educational Leaflet Providered with your Discharge Instructions. Understanding Opioid Medicines for Pain Management?? Hydromorphone Oral Tablet?? Metoclopramide Oral Tablet?? Heart Failure Discharge Instructions for Heart Failure?? Chronic Kidney Disease (CKD)?? What Is High Blood Pressure??? Gastroparesis?? Valuables and Belongings I fully understand and agree that [facility] accepts no responsibility for all my [...] patient Date for Pt to Sign Valuables/Belongings: 04/08/22 02:36:00 ?? Other Discharge Information ? Pulmonary Rehab [...] are strongly encouraged to quit. Please call [employer] at [phone] or [phone] ([phone]) or log in to [email or web address] for referrals to smoking cessation programs. ?? The National Suicide Prevention Hotline is available 18/09 if you or someone you know needs to find areason to keep living. By calling 2-858-718-qusp (9021) you'll be connected to a skilled, trained counselor at a crisis center in your area. INPATIENT DISCHARGE INSTRUCTIONS SIGNATURE PAGE ROWAN TAYLOR Location:[facility] Registration Date and Time:04/07/2022 18:44 EST Primary Care Physician: Carolina Hsu NP, I ROWAN TAYLOR, have received the above patient education materials/instructions and have verbalized understanding. If ambulance or transport services are being used I further acknowledge being given a choice of service. ?? If you need to contact me, please call me at this number: . Patient/Real Estate Agency Principal Name: Patient/Real Estate Agency Principal Signature: Relationship to Patient: Witness Name/Signature: Date: Michael Eaton RN: PERFORM Event Display: Patient Education Leaflets Authored Date: [id number] Understanding Opioid Medicines for Pain Management ?? [id number] Understanding Opioid Medicines for Pain Management Opioids are medicines that can help ease pain. They are stronger than most sieu-qut-hzpzify pain relievers and must be prescribed by a healthcare provider. They can be used to treat both acute and chronic pain that ranges from moderate to severe. Opioids can be safe and effective when used correctly.But they do come with serious risks and side effects. For this reason, they should be used only if other medicines or treatments have not done enough to ease or manage pain. What is pain? Pain is your body???s way of telling you something is wrong. It makes you pull your hand away from a flame or avoid walking on an injured leg. Pain starts in receptor cells found beneath the skin and in organs throughout the body. When you are sick or injured, these receptor cells send signals along nerve pathways to the spinal cord, which then sends the signals to the brain. The brain interprets the signals as pain. In response, it sends back signals to protect the body. The brain also releases its own natural painkillers called endorphins to help reduce pain. Once the source of the pain heals, the pain often goes away. ?? Types of pain Pain can one be of two types: acute or chronic. Both types respond to treatment. ??? Acute pain typically lasts fewer than 3 months. It goes away when the cause is treated. Common causes of acute paininclude injury or illness. Surgery can lead to short-term pain during healing. And women have acute pain during and after childbirth. In some cases, acute pain can lead to chronic pain over time. ??? Chronic pain often lasts longer than 3 months. This includes pain that comes and goes or that is continuous. Chronic pain may be due to an ongoing health problem, such as arthritis. Or it may linger after an injury that has healed, such as a broken bone. Problems with the body???s pain-control system may also lead to chronic pain. Sometimes, chronic pain can occur with no clear cause. ?? The pain cycle Pain can affect all aspects of your life. For example, sleep, mood, activity, and energy level are all affected by pain. Being tired, depressed, or inactive makes the pain worse and harder to cope with. This leads to a cycle of pain. ?? How opioids work Opioids work by attaching to special receptors found in the brain, spinal cord, and other organs. When opioids attach to these receptors, they can block or suppress how you feel pain. Opioids can alsomake you feel good or relaxed. They affect areas of the brain that produce feelings of pleasure. ?? Types of opioids There are two types of opioids: short-acting/immediate-release (SA/IR) and long-acting/extended-release (LA/ER). Short-acting opioids work faster than long-acting opioids. But they give pain relief for only short periods. Long- acting opioids work slower than short-acting opioids. But they ease pain for longer periods. Many opioids come in both short- and long-acting formulas. They include: ??? Codeine with acetaminophen ??? Fentanyl ??? Hydrocodone (with or without acetaminophen) ??? Hydromorphone ??? Meperidine ??? Methadone ??? Morphine ??? Oxycodone (with or without acetaminophen) ??? Tramadol If you are prescribed opioids, you will likely be started on a short-acting type at the lowest dose. The dose may then be adjusted as needed based on your response to the medicine and follow-up with your healthcare provider. If appropriate, you may start using a long-acting type opioid. In some cases, you may be prescribed both types of opioids to help manage different types of pain. Any changes will also depend on how you handle pain and side effects from the medicine. ?? Side effects of opioids Side effects of opioid medicines include the following: ??? Constipation ??? Feeling sleepy (drowsy) ??? Nausea Some side effects of opioid medicines can be life-threatening. Symptoms of opioid overdose include the following: ??? Slow heart rate ??? Shallow or slowed breathing ??? Loss of consciousness When taking opioids, there is a possibility of abusing the medicine, physical dependence, and addiction. Take opioid medicines only as directed by your healthcare provider. Don't take opioids with benzodiazepines, such as alprazolam or lorazepam. Combining these medicinescan have serious risks. These include extreme sleepiness, slowed breathing, and . Tell your healthcare provider if you are taking benzodiazepines. ?? Note Studies show that opioids provide short-term help for moderate to severe pain. But the benefits of long-term use of opioids for treating pain remain unclear. You should only stay on opioids if they continue to improve pain and function without raising the risks to your health. ?? How opioids are given Most opioids are taken by mouth. They often come in pill form. But some may come in the form of liquids and even sweetened lozenges. Certain opioids also may be injected under the skin, into a muscle,or into a vein. Or they may be absorbed through the skin via a patch. ?? Know your options Keep in mind that opioids are not the only option for treating pain. Nonopioid options may work just as well. They may have fewer risks and side effects. Talk with your healthcare provider about whichtreatment plan is right for you. Nonopioid options can include:? Other pain relievers, such as acetaminophen or nonsteroidal anti-inflammatory drugs (NSAIDs) such as ibuprofen or naproxen ??? Other classes of medicines such as anticonvulsants, antidepressants, and muscle relaxers ??? Exercise andphysical therapy ??? Cognitive behavioral therapy, which can help you learn different ways to respond and cope with pain ??? Mind/body therapies such as deep breathing, distraction, visualization, meditation, or biofeedback ??? Complementary therapies such as massage, acupuncture and acupressure, or veterinarian laboratory animal care ??? Various procedures, such as transcutaneous electrical nerve stimulation (TENS), implantation of a spinal pump, and nerve ablation ?? Last Reviewed Date: 2022 ?? 5862-6088 [employer]. All rights reserved. This information is not intended as a substitute for professional medical care. Always follow your healthcare professional's instructions. ??Michael Eaton RN: PERFORM Event Display: Patient Education Leaflets Authored Date: [id number] Hydromorphone Oral Tablet ?? 96219-430 Hydromorphone Oral Tablet Brands: Dilaudid Uses For [...] about all medicines taken. Include prescription and ohlg-fxl-kmvdihr medicines, vitamins, and herbal medicines. Speak with [...] treat it. If you stop this medicine suddenly after using it for a long time, you may have withdrawal. Your doctor may slowly lower your dose before stopping it. Tell your doctor right away if you have symptoms,such as unusual sweating, watering eyes, runny nose, chills, diarrhea, yawning, muscle aches, restlessness, anxiety, trouble sleeping, or thoughts of [...] have any questions about this medicine. ?? https://My Health Direct.[employer]/[email or web address]/fdbpem/850 IMPORTANT NOTE: This document tells you briefly how to take your medicine, but it does not tell youall there is to know about it. Your doctor or pharmacist may give you other documents about your medicine. Please talk to them if you have any questions. Always follow their advice. There is a more complete description of this medicine available in [place]. Scan this code on your smartphone or tablet or use the web address below. You can also ask your pharmacist for a printout. If you have any questions, please ask your pharmacist. The display and use of this drug information is subject to Terms of Use. Copyright(c) 2022 [employer]. ?? [employer]. All rights reserved. This information is not intended as a substitute for professional medical care. Always follow your healthcare professional's instructions. ??Michael Eaton RN: PERFORM Event Display: Patient Education Leaflets Authored Date: [id number] Metoclopramide Oral Tablet ?? 67529-03 Metoclopramide Oral Tablet Brands: Cherise Uses This medicine is used for the following purposes: ??? abnormal bowel function ??? nausea and vomiting ??? stomach acid reflux ?? Instructions You may break or cut the pill if necessary. Take the medicine 30 minutes before a meal. Store at room temperature away from heat, light, and moisture. Do not keep in the bathroom. This medicine can reduce the absorption of other medicines. Talk to your doctor or pharmacist aboutthe best times to use this product. Drug interactions can change how medicines work or increase risk for side effects. Tell your healthcare providers about all medicines taken. Include prescription and ubql-rfy-xwbfvoo medicines, vitamins, and herbal medicines. Speak with your doctor or pharmacist before starting or stopping any medicine. Tell your doctor if symptoms do not get better or if they get worse. If you need to stop this medicine, your doctor may wish to gradually reduce the dosage before stopping. This medicine may affect your blood sugar levels. If you have diabetes, talk to your doctor before changing the dose of your diabetes medicine. Keep all appointments for medical exams and tests while on this medicine. ?? Cautions This medicine is not recommended for use in children younger than 18. Tell your doctor and pharmacist if you ever had an allergic reaction to a medicine. This medicine is associated with a rare but very serious medical condition. Please speak with your doctor about symptoms you should look out for while on this medicine. Notify your doctor immediately if you develop those symptoms. Do not use the medication any more [...] beverages with alcohol while on this medicine. Tell the [...] experience these or other side effects. ??? agitated feeling or trouble sleeping ??? diarrhea ??? dizziness or drowsiness ??? lack of energy and tiredness ??? headaches Call your doctor or get medical help right away if you notice any of these more serious side effects: ??? breast pain or swelling ??? confusion ??? depression or feeling sad ??? swelling of the legs, feet, and hands ??? face appearing mask-like ??? high fever ??? hallucinations (unusual thoughts, seeing or hearing things that are not real) ??? fast or irregular heart beats ??? menstruation changes (missed or fewer periods) ??? uncontrollable movement of face, tongue, arms or legs ??? muscle aches, spasms or abnormal movements ??? muscle trembling ??? shakiness ??? suicidal thoughts A few people may have an allergic reaction to this medicine. Symptoms can include difficulty breathing, skin rash, itching, swelling, or severe dizziness. If you notice any of these symptoms, seek medical help quickly. ?? Extra Please speak with your doctor, nurse, or pharmacist if you have any questions about this medicine. ?? [email or web address] Health [email or web address].[email or web address]/V2.0/fdbpem/90 IMPORTANT NOTE: This document tells you briefly how to take your medicine, but it does not tell youall there is to know about it. Your doctor or pharmacist may give you other documents about your medicine. Please talk to them if you have any questions. Always follow their advice. There is a more complete description of this medicine available in [place]. Scan this code on your smartphone or tablet or use the web address below. You can also ask your pharmacist for a printout. If you have any questions, please ask your pharmacist. The display and use of this drug information is subject to Terms of Use. Copyright(c) 2022 [employer]. ?? [employer]. All rights reserved. This information is not intended as a substitute for professional medical care. Always follow your healthcare professional's instructions. ??[facility] , SARANYA S: TRANSCRIBE Tyron CARLSON, Kareem Burgess: VERIFY Event Display: Result: Authored Date: AP and lateral chest x-ray dated April 07, 2022. Comparison films are from April 05, 2022. HISTORY: Shortness of breath. FINDINGS: The cardiac silhouette is at the upper limits of normal for size and is unchanged. Some mild pulmonary vascular congestion is noted centrally. Minimal interstitial thickening is noted. No airspace consolidation is appreciated. There is some minimal blunting of the posterior costophrenic sulci likely representing minimal effusions. Visualized osseous structures are unremarkable. IMPRESSION: Findings are consistent with a volume overload/mild pulmonary edema pattern. Examination 55923. Thank you for allowing me to participate in the care of this patient. WSN: [id number] Ordering Physician: Erika Tao Dictated By: Kareem Ackerman MD Dictated Date/Time: 04/07/22 5:05 pm Reviewed By: Kareem Ackerman MD Signed By: Kareem Ackerman MD Signed Date/Time: 04/07/22 5:05 pm Transcribed By: ALEXIS Transcribed Date/Time: 04/07/22 5:[address] Head WO contrast [facility] , CIS S: TRANSCRIBE Jeannie Glass MD: VERIFY Event Display: Result: Authored Date: [id number] CT Head/Brain W/O Contrast INDICATION/CLINICAL QUESTION: Hx of Present Illness: sob head pain right flank pain; Reason: Trauma;Clinical Question(s): Hematoma / Hematoma. TECHNIQUE: Noncontrast head CT using axial technique and reconstructed in axial and coronal plane. Age-based protocol was used to optimize exposure parameters. CTDIvol Head: 47.10 mGy, DLP Head: 773 mGy*cm. COMPARISON: CT head, 01/17/2022. MRI brain, 12/02/2021. FINDINGS: The fourth ventricle is midline. The posterior fossa structures are unremarkable. The ventricles andsulci are normal in size. Ventura-white differentiation is preserved without evidence of acute confluent lobar infarction. There is no hemorrhage, midline shift, or mass effect. No extra- axial collection is noted. The calvarium is intact. Sinuses and mastoids are clear. Poorly defined hypodensity is seen within each lobe, right more prominent than left, probably representing vitreous detachment, as noted on the MRI from 12/02/2021. IMPRESSION: No acute intracranial abnormality. Presumed vitreous detachment along the posterior margin of each globe, as seen on MRI from 11/27/2021. WSN: [id number] Ordering Physician: Erika Tao Dictated By: Jeannie Glass MD Dictated Date/Time: 04/07/22 5:24 pm Reviewed By: Jeannie Galss MD Signed By: Jeannie Glass MD Signed Date/Time: 04/07/22 5:24 pm Transcribed By: ALEXIS Transcribed Date/Time: 04/07/22 5:17 pm XR Pelvis and Hip - right Views [facility] , SARANYA S: TRANSCRIBE Mihai Germain MD: VERIFY Event Display: Result: Authored Date: [id number] XR Hip w/Pelvis 2-3 View Right Reason: Pain; Clinical Question(s): Fracture; Order Comment: 04 08 2022 13:47:46 EST N R per RN - tryaround 16:00. ML COMPARISON: 04/19/2021 FINDINGS: There is no fracture or dislocation. Normal hips and sacroiliac joints. Normal soft tissues. IMPRESSION: No evidence of acute osseous abnormality. WSN: [id number] Ordering Physician: Ksenia Centeno Dictated By: Mihai Germain MD Dictated Date/Time: 04/08/22 5:53 pm Reviewed By: Mihai Germain MD Signed By: Mihai Germain MD Signed Date/Time: 04/08/22 5:53 pm Transcribed By: ALEXIS Transcribed Date/Time: 04/08/22 5:52 pm Patient Care team information Care Team PersonnelName: Elizabeth Cabezas Position: S RN Member Role: Primary Care Nurse Name: Anuradha Morris RN Position: S RN Member Role: Primary Care Nurse Name: Samantha Reynolds RN Position: S RN Member Role: Primary Care Nurse Name: Omega Gillespie RN Position: S RN Member Role: Primary Care Nurse Name: Doreen Estrada RN Position: S RN Member Role: Primary [...] Care Nurse Name: Jodi Carrillo RN Position: [facility] RN Member Role: Primary Care Nurse Name: Abbey Shelley RN Position: [facility] RN Member Role: Primary Care Nurse Name: Larissa Barnett RN Position: [facility] RN Member Role: Primary Care Nurse Name: Inna Beckwith RN Position: [facility] RN Member Role: Primary Care Nurse Name: Cady Araya RN Position: [facility] RN Member Role: Primary Care Nurse Name: Anuradha Frank Position: [facility] RN Member Role: Primary Care Nurse Name: Michele Blancas DO Position: [facility] Renal MD Member Role: Lifetime Consulting Physician Address: Address: [address] [place], [place] [address] [place] [place] [address]- [place] Name: María Acosta RN Position: [facility] RN Member Role: Primary Care Nurse Name: Treasure Gilbert RN Position: [facility] RN Supv Member Role: Primary Care Nurse Name: Stefany Grajeda RN Position: [facility] RN Member Role: Primary Care Nurse Name: Farzana Sevilla Position: [facility] RN Member Role: Primary Care Nurse Name: Javan Pimentel MD Position: [facility] Renal MD Member Role: Lifetime Consulting Physician Address: Address: [address] [facility] [place] [address]- [place] Name: Heather Pal RN Position: [facility] RN Member Role: Primary Care Nurse Name: Carolina Hsu NP Position: Reference Physician Member Role: PCP Address: Address: [address] [place] [address]- [place] Name: Jody Rasmussen RN Position: [facility] RN Member Role: Primary Care Nurse Name: Luisa Devine RN Position: [facility] RN Member Role: Primary Care Nurse Name: Mau Hazel RN Position: [facility] RN Member Role: Primary Care Nurse Name: Pedro Taylor RN Position: [facility] RN Member Role: Primary Care Nurse Name: Charlotte Singletary RN Position: [facility] OB RN Member Role: Primary Care Nurse Name: Alison Jose RN Position: [facility] RN Member Role: Primary Care Nurse Name: Kendall Coleman RN Position: [facility] RN Member Role: Primary Care Nurse Name: Nancy Fair RN Position: [facility] SN RN Member Role: Primary Care Nurse Name: Sofie Reed Position: [facility] RN Member Role: Primary Care Nurse Name: Kasia Vital RN Position: [facility] RN Member Role: Primary Care Nurse Name: Fernando Siddiqi MD Position: [facility] Renal MD Member Role: Lifetime Consulting Physician Address: Address: [address] [place] [address] [facility] [address] Name: Kaelyn Lewis RN Position: [facility] RN Member Role: Primary Care Nurse Name: Lianne Byrnes RN Position: [facility] RN Member Role: Primary Care Nurse Name: Tona Jacome LPN Position: [facility] RN Member Role: Primary Care Nurse Name: Tatiana Madrigal RN Position: [facility] RN Member Role: Primary Care Nurse Name: Jose Callejas RN Position: [facility] RN Member Role: Primary Care Nurse Name: Ashely Riley Position: [facility] RN Member Role: Primary Care Nurse Name: Vy RAMIREZ Attending Position: [facility] ED Medicine MD Name: Gloria Robbins RN Position: [facility] ED RN W/OE and Tasks Member Role: Patient Care Provider Name: Mary Fu Position: [facility] ED OA Charge Member Role: ED Associate Name: Samantha Bess Position: [facility] ED TA [facility] Name: Erika Tao MD Position: [facility] Resident Member Role: ED Resident Address: Address: [address] [place] [address] [place] [address]- Care Team Related PersonsName: LEONOR MCFARLAND Address: home [address] [place] [address] Name: REJI TAYLOR Address: [address] [place] [address] Name: JEFF CHAPMAN Address: [id number] Address: home [address] [address] Name: ELI BONILLA Address: home [address] [address]
--- OUTSIDE RECORDS SUMMARY | 2022-05-10 17:01 | XMS_ITS | Continuity of Care Document ---
:1990 Author Organization [facility] Address [address] [place] [id number]- Care Team Providers Name Role Phone Chirag CARLSON, Abdon Primary Care Physician [facility] Date(s): 04/04/22 - 04/04/[address] [address]- Discharge Disposition: A-D/C Walkout Attending Physician: Not [...] '943Admin Note: TD4 Admin Note: unknown exact [id number] Note: unknown exact date Medications acetaminophen 325 mg oral capsule 2 capsule = 650 mg, By Mouth, Every 4 hours, PRN as needed for pain, # 90 capsule, 0 Refills, Acute 03/31/23 8:01:00 EST, 03/30/22 8:01:00 EST, Capsule, [facility]/pharmacy #[id number], Partial [...] 03/29/22 12:12:00 EST, [facility] 03/29/22 12:11:00 EST, Route to Pharmacy Electronically, [facility]/pharmacy #[id number], Partial fill upon patient request if the prescription is for a schedule II opi... Start Date: 03/29/22 Status: OrderedCrestor 5 mg oral tablet 1 tablet = 5 mg, By Mouth, Daily, # 30 tablet, 0 Refills, Maintenance, 01/19/22 13:30:00 EST, Tablet, [facility]/pharmacy #[id number], Partial fill upon patient request if the prescription is for a schedule II opioid drug., 160, cm, 01/19/22 8:55:00 EST, Height, 9... Start Date: 01/19/22 Status: Ordereddiclofenac 1% topical gel = 2 Gm, Topically, 4 times a day, # 240 Gm, 0 Refills, Maintenance, 03/30/22 8:01:00 EST, Gel, [facility]/pharmacy #[id number], Partial fill upon patient request if the prescription is for a schedule II opioid drug., 168, cm, 03/29/22 10:53:00 EST, Height, 87.4, k... Start Date: 03/30/22 Status: OrderedFlonase 50 mcg/inh nasal spray 1 sprays, Nares, Both, 2 times a day, # 16 Gm, 0 Refills, Maintenance, 03/10/22 13:15:00 EST, [place],[facility], Partial fill upon patient request if the prescription is for a schedule IIopioid drug., 1 sprays Nares, Both 2 times a day,... Start Date: 03/10/22 Status: OrderedLevemir FlexTouch 100 units/mL subcutaneous solution = 8 units, Subcutaneous Injection, Daily at bedtime, (NOT TAKING & HASN'T IN MONTHS), # 10 mL, 0Refills, Maintenance, 03/10/22 13:13:00 EST, Injection, [facility], Partial fill upon patient request if the prescription is for a schedule... Start Date: 03/10/22 Status: OrderedNIFEdipine 30 mg oral tablet, extended release 30 mg, 1, tablet, By Mouth, Daily, # 30 tablet, Refills 0, Tot. Refills 0, Maintenance, 03/10/22 13:15:00 EST, Route to Pharmacy Electronically, [facility], Partial fill upon patient request if the prescription is for a schedule II opioi... Start Date: 03/10/22 Stop Date: 04/09/22 Status: OrderedNovoLOG FlexPen 100 units/mL injectable solution 11-12 UNITS, Subcutaneous Injection, 3 times a day before meals, (NOT TAKING & HASN'T IN MONTHS), # 10 mL, 0 Refills, Maintenance, 03/10/22 13:12:00 EST, Injection, [facility], Partial fill upon patient request if the prescription is for... Start Date: 03/10/22 Status: Orderedondansetron 4 mg oral tablet 1 tablet = 4 mg, By Mouth, Every 8 hours, PRN Nausea & Vomiting, # 12 tablet, 0 Refills, Maintenance, 03/10/22 13:16:00 EST, Tablet, [facility] 3, Partial fill upon patient request [...] Dry Weight Start Date: 03/10/22 Status: OrderedPen [place], 31 G x 5 mm BD Ultra [...] 0 Refills, Maintenance, 03/10/22 13:14:00 EST, Tablet, [facility], Partial fill upon patient [...] Migraine5 Confirmed Active Care Coordination Confirmed Active [facility], Hakan Angel, CC 1Managed by PCP. WEll controlled.2Self-manages. States currently stable. No medications.3Not seem at [facility] since 08/12/2016. Multiple no show in our center. She is seen by other provider Dr Matt Gutierrez by pharmacy records.4Managed by [id number] by PCP with Tylenol Results Radiology Reports Exam Date Time Procedure Performing Provider Status 04/04/22 7:53 PM Chest 2 Views Frontal and Lat Rosa M , Antoine; Au th (Verified) Notes:(Chest 2 Views Frontal and Lat) Reason For Exam: Chest Pain;Other:RESULT: Chest 2 Views Frontal and Lat Chest 2 Views Frontal and Lat Hx of Present Illness: Pt wheeled to room. Pt reports L side tighness in chest, abd, and leg. Pt stated, I think I've got fluid. ; Reason: Other:; Chest Pain; Clinical Question(s): Other: COMPARISON: Chest x-ray from 03/30/2022. FINDINGS: LINES AND TUBES: None. LUNGS AND PLEURA: Low lung volumes with mild basilar atelectasis. Lungs are otherwise clear with no consolidation. No pleural effusion. No pneumothorax. HEART, MEDIASTINUM AND EVERT: Heart is at the upper limits of normal for size. Normal mediastinal and hilar contour. BONES AND SOFT TISSUES: No acute abnormality. IMPRESSION: Study limited by low lung volumes. No acute cardiopulmonary pathology is identified. WSN: [id number] Ordering Physician: Guerline Hoff Dictated By: Mihai Coates MD Dictated Date/Time: 04/04/22 8:31 pm Reviewed By: Mihai Coates MD Signed By: Mihai Coates MD Signed Date/Time: 04/04/22 8:31 pm Transcribed By: ALEXIS Transcribed Date/Time: 04/04/22 8:30 pm Vital Signs Most recent to oldest [Reference Range]: 1 Oxygen Saturation [94-100 %] 100 % (04/04/22 8:28 PM) Pulse Rate [55-90 bpm] 99 bpm *H* (04/04/22 8:28 PM) Blood Pressure [90-138/55-84 mm Hg] 161/84 mm Hg *H* (04/04/22 8:28 PM) Respiratory Rate [16-30 br/min] 16 br/min (04/04/22 8:28 PM) Temperature [96.8-100.4 DegF] 98.5 DegF (04/04/22 8:28 PM) Mode of Delivery (Oxygen) Room air (04/04/22 8:28 PM) Blood pressure sites Arm, right (04/04/22 8:28 PM) Temperature Route Oral (04/04/22 8:28 PM) Social History Social History Type Response Smoking Status Never (less than 100 in life time) entered on: 08/22/21 Sex Note BHSPowerscribe , CIS S: TRANSCRIBE Mihai Coates MD: VERIFY Event Display: Result: Authored Date: [id number] Chest 2 Views Frontal and Lat Hx of Present Illness: Pt wheeled to room. Pt reports L side tighness in chest, abd, and leg. Pt stated, I think I've got fluid. ; Reason: Other:; Chest Pain; Clinical Question(s): Other: COMPARISON: Chest x-ray from 03/30/2022. FINDINGS: LINES AND TUBES: None. LUNGS AND PLEURA: Low lung volumes with mild basilar atelectasis. Lungs are otherwise clear with no consolidation. No pleural effusion. No pneumothorax. HEART, MEDIASTINUM AND EVERT: Heart is at the upper limits of normal for size. Normal mediastinal and hilar contour. BONES AND SOFT TISSUES: No acute abnormality. IMPRESSION: Study limited by low lung volumes. No acute cardiopulmonary pathology is identified. WSN: [id number] Ordering Physician: Guerline Hoff Dictated By: Mihai Coates MD Dictated Date/Time: 04/04/22 8:31 pm Reviewed By: Mihai Coates MD Signed By: Mihai Coates MD Signed Date/Time: 04/04/22 8:31 pm Transcribed By: ALEXIS Transcribed Date/Time: 04/04/22 8:30 pm Patient Care team information Care Team PersonnelName: Anuradha Morris RN Position: [facility] RN Member Role: Primary Care Nurse Name: Samantha Reynolds RN Position: [facility] RN Member Role: Primary Care Nurse Name: Omega Gillespie RN Position: [facility] RN Member Role: Primary Care Nurse Name: Paty Kelly RN Position: S RN Member Role: Primary Care Nurse Name: Sonia Malone Position: S RN Member Role: Primary Care Nurse Name: Keira eDsai RN Position: [facility] RN Member Role: Primary Care Nurse Name: Gomez Moseley RN Position: [facility] RN Addie Member Role: Primary Care Nurse Name: Vashti Bruce RN Position: S RN Member Role: Primary Care Nurse Name: Raghav Granger Position: S RN Member Role: Primary Care Nurse Name: Cassy Caraballo RN Position: [facility] RN Member Role: Primary Care Nurse Name: Jodi Carrillo RN Position: [facility] RN Member Role: Primary Care Nurse Name: Abbey Shelley RN Position: [facility] RN Member Role: Primary Care Nurse Name: Larissa Barnett RN Position: [facility] RN Member Role: Primary Care Nurse Name: Inna Beckwith RN Position: [facility] RN Member Role: Primary Care Nurse Name: Cady Araya RN Position: [facility] RN Member Role: Primary Care Nurse Name: Abdon Beard MD Position: [facility] Outreach Member Role: PCP Address: Address: [address] [place] [address]- [place] Name: Anuradha Frank Position: [facility] RN Member Role: Primary Care Nurse Name: Michele Blancas DO Position: [facility] Renal MD Member Role: Lifetime Consulting Physician Address: Address: [address] [place] [address] [address] [facility] [place] [address]- [place] Name: María Acosta RN Position: [facility] RN Member Role: Primary Care Nurse Name: Treasure Gilbert RN Position: [facility] RN Supv Member Role: Primary Care Nurse Name: Stefany Grajeda RN Position: [facility] RN Member Role: Primary Care Nurse Name: Farzana Sevilla Position: [facility] RN Member Role: Primary Care Nurse Name: Javan Pimentel MD Position: [facility] Renal MD Member Role: Lifetime Consulting Physician Address: Address: [address] [facility] [address] [facility] [place] [address]- [place] Name: Heather Pal RN Position: [facility] RN Member Role: Primary Care Nurse Name: Jody Rasmussen RN Position: [facility] RN Member Role: Primary Care Nurse Name: Luisa Devine RN Position: [facility] RN Member Role: Primary Care Nurse Name: Mau Hazel RN Position: [facility] RN Member Role: Primary Care Nurse Name: Pedro Taylor RN Position: [facility] RN Member Role: Primary Care Nurse Name: Charlotte Singletary RN Position: [facility] OB RN Member Role: Primary Care Nurse Name: Alison Jose RN Position: [facility] RN Member Role: Primary Care Nurse Name: Kendall Coleman RN Position: [facility] RN Member Role: Primary Care Nurse Name: Nancy Fair RN Position: [facility] SN RN Member Role: Primary Care Nurse Name: Sofie Reed Position: S RN Member Role: Primary Care Nurse Name: Kasia Vital RN Position: [facility] RN Member Role: Primary Care Nurse Name: Fernando Siddiqi MD Position: [facility] Renal MD Member Role: Lifetime Consulting Physician Address: Address: [address] [place] [address] [facility] [address] Name: Kaelyn Lewis RN Position: [facility] RN Member Role: Primary Care Nurse Name: Lianne Byrnes RN Position: [facility] RN Member Role: Primary Care Nurse Name: Tona Jacome LPN Position: [facility] RN Member Role: Primary Care Nurse Name: Tatiana Madrigal RN Position: [facility] RN Member Role: Primary Care Nurse Name: Jose Callejas RN Position: [facility] RN Member Role: Primary Care Nurse Name: Ashely Riley Position: S RN Member Role: Primary Care Nurse Care Team Related PersonsName: ADI MCFARLANDO Address: home [address] [place] [address] Name: REJI TAYLOR Address: home [address] [place] [address] Name: JEFF CHAPMAN Address: [address] Address: [address] [address] Name: ELI BONILLA Address: [address] [address]
[2022-05-10 17:02] LABS: B Type Natriuretic Peptide 2870 pg/mL (<100)
--- OUTSIDE RECORDS SUMMARY | 2022-05-10 17:02 | XMS_ITS | Continuity of Care Document ---
:1990 Author Organization [facility] Address [address] [address]- Care Team Providers Name Role Phone Chirag CARLSON, Abdon Primary Care Physician [facility] 04[facility]06/22 - 05/06/22 [facility] [address] [address] Allergies, Adverse Reactions, Alerts Substance Reaction Severity Status morphine Itching Active gabapentin Itching of tongue Severe Active traMADol Itching of tongue Severe Active vancomycin1, 2 Tightness in throat Active Zosyn3 angioedema Severe Active 1Tolerates again [...] '943Admin Note: TD4 Admin Note: unknown exact [id number] Note: unknown exact date Medications acetaminophen 325 mg oral capsule 2 capsule = 650 mg, By Mouth, Every 4 hours, PRN as needed for pain, # 90 capsule, 0 Refills, Acute 03/31/23 8:01:00 EST, 03/30/22 8:01:00 EST, Capsule, [facility]/pharmacy #[id number], Partial fill upon [...] 03/29/22 12:11:00 EST, Route to Pharmacy Electronically, [facility]/pharmacy #[id number], Partial fill upon patient request if the prescription is for a schedule II opi... Start Date: 03/29/22 Status: OrderedCrestor 5 mg oral tablet 1 tablet = 5 mg, By Mouth, Daily, # 30 tablet, 0 Refills, Maintenance, 01/19/22 13:30:00 EST, Tablet, [facility]/pharmacy #[id number], Partial fill upon patient request if the prescription is for a schedule II opioid drug., 160, cm, 01/19/22 8:55:00 EST, Height, 9... Start Date: 01/19/22 Status: Ordereddiclofenac 1% topical gel = 2 Gm, Topically, 4 times a day, # 240 Gm, 0 Refills, Maintenance, 03/30/22 8:01:00 EST, Gel, [facility]/pharmacy #[id number], Partial fill upon patient request if the prescription is for a schedule II opioid drug., 168, cm, 03/29/22 10:53:00 EST, Height, 87.4, k... Start Date: 03/30/22 Status: OrderedFlonase 50 mcg/inh nasal spray 1 sprays, Nares, Both, 2 times a day, # 16 Gm, 0 Refills, Maintenance, 03/10/22 13:15:00 EST, [place],[facility], Partial fill upon patient [...] II opioid drug. Start Date: 04/15/22 Status: OrderedLevemir FlexTouch 100 units/mL subcutaneous solution = 8 units, Subcutaneous Injection, Daily in AM, # 10 mL, 0 Refills, Maintenance, 03/10/22 13:13:00 EST, Injection, [facility], Partial fill upon patient request if the prescription is fora schedule II opioid drug., 170, cm, 03/10/22 10:... Start Date: 03/10/22 Status: OrderedNIFEdipine 30 mg oral tablet, extended release 30 mg, 1, tablet, By Mouth, Daily, # 30 tablet, Refills 0, Tot. Refills 0, Maintenance, 03/10/22 13:15:00 EST, Route to Pharmacy Electronically, [facility], Partial fill upon patient request if the prescription is for a schedule II opioi... Start Date: 03/10/22 Stop Date: 04/09/22 Status: OrderedNovoLOG FlexPen 100 units/mL injectable solution 11-12 UNITS, Subcutaneous Injection, 3 times a day before meals, (NOT TAKING & HASN'T IN MONTHS), # 10 mL, 0 Refills, Maintenance, 03/10/22 13:12:00 EST, Injection, [facility] 3, Partial fill upon patient request if the prescription is for... Start Date: 03/10/22 Status: Orderedondansetron 4 mg oral tablet 1 tablet = 4 mg, By Mouth, Every 8 hours, PRN Nausea & Vomiting, # 12 tablet, 0 Refills, Maintenance, 03/10/22 13:16:00 EST, Tablet, [facility] 3, Partial fill upon patient [...] Dry Weight Start Date: 03/10/22 Status: OrderedPen [place], 31 G x 5 mm BD Ultra [...] 0 Refills, Maintenance, 03/10/22 13:14:00 EST, Tablet, [facility], Partial fill upon [...] Dr Matt Gutierrez by pharmacy records.4Managed by [id number] by PCP with Tylenol Social History Social [...] Care Nurse Name: Doreen Estrada RN Position: [facility] RN Member Role: Primary Care Nurse Name: Paty Kelly RN Position: [facility] RN Member Role: Primary Care Nurse Name: Sonia Malone Position: [facility] RN Member Role: Primary Care Nurse Name: Keira Desai RN Position: [facility] RN Member Role: Primary Care Nurse Name: Gomez Moseley RN Position: [facility] RN Supv Member Role: Primary Care Nurse Name: Vashti Bruce RN Position: [facility] RN Member Role: Primary Care Nurse Name: Raghav Granger Position: [facility] RN Member Role: Primary Care Nurse Name: Cassy Caraballo RN Position: [facility] RN Member Role: Primary Care Nurse Name: Jodi Carrillo RN Position: [facility] RN Member Role: Primary Care Nurse Name: Abbey Shelley RN Position: [facility] RN Member Role: Primary Care Nurse Name: Larissa Barnett RN Position: [facility] RN Member Role: Primary Care Nurse Name: Inna Beckwith RN Position: [facility] RN Member Role: Primary Care Nurse Name: Cady Araya RN Position: [facility] RN Member Role: Primary Care Nurse Name: Abdon Beard MD Position: [facility] Outreach Member Role: PCP Address: Address: [address] [place] [address]- Name: Anuradha Frank Position: [facility] RN Member Role: Primary Care Nurse Name: Michele Blancas DO Position: [facility] Renal MD Member Role: Lifetime Consulting Physician Address: Address: [address] [facility] [address] [facility] [place] [address]- [place] Name: María Acosta RN Position: [facility] RN Member Role: Primary Care Nurse Name: Treasure Gilbert RN Position: [facility] RN Supv Member Role: Primary Care Nurse Name: Farzana Sevilla Position: [facility] RN Member Role: Primary Care Nurse Name: Javan Pimentel MD Position: [facility] Renal MD Member Role: Lifetime Consulting Physician Address: Address: [address] [place] [address] [address] [facility] [place] [address]- [place] Name: Heather Pal RN Position: [facility] RN Member Role: Primary Care Nurse Name: Jody Rasmussen RN Position: [facility] RN Member Role: Primary Care Nurse Name: Luisa Devine RN Position: [facility] RN Member Role: Primary Care Nurse Name: Mau Hazel RN Position: [facility] RN Member Role: Primary Care Nurse Name: Pedro Taylor RN Position: S RN Member Role: Primary Care Nurse Name: Charlotte Singletary RN Position: [facility] OB RN Member Role: Primary Care Nurse Name: Alison Jose RN Position: [facility] RN Member Role: Primary Care Nurse Name: Kendall Coleman RN Position: [facility] RN Member Role: Primary Care Nurse Name: Nancy Fair RN Position: [facility] SN RN Member Role: Primary Care Nurse Name: Sofie Reed Position: [facility] RN Member Role: Primary Care Nurse Name: Kasia Vital RN Position: [facility] RN Member Role: Primary Care Nurse Name: Fernando Siddiqi MD Position: [facility] Renal MD Member Role: Lifetime Consulting Physician Address: Address: [address] [place] [address] [facility] [address] Name: Kaelyn Lewis RN Position: [facility] RN Member Role: Primary Care Nurse Name: Lianne Byrnes RN Position: [facility] RN Member Role: Primary Care Nurse Name: Tona Jacome LPN Position: [facility] RN Member Role: Primary Care Nurse Name: Tatiana Madrigal RN Position: [facility] RN Member Role: Primary Care Nurse Name: Jose Callejas RN Position: [facility] RN Member Role: Primary Care Nurse Care Team Related PersonsName: ADI MCFARLANDO Address: [address] [place] [address] Name: REJI TAYLOR Address: [address] [place] [address] Name: ADELAMONTEZEDEN Address: [address] Address: home [address] [address] [place] Name: ELI BONILLA Address: home [address] [address]
--- OUTSIDE RECORDS SUMMARY | 2022-05-10 17:02 | XMS_ITS | Continuity of Care Document ---
:1990 Author Organization [facility] Address [address] [place] [address]- Care Team Providers Name Role Phone Chirag CARLSON, Abdon Primary Care Physician Encounter [facility] Date(s): 04/05/22 - 04/05/[address] [address]- Discharge Disposition: A-D/C Walkout Attending Physician: Not [...] '[id number] Note: TD4 Admin Note: unknown exact [id number] Note: unknown exact date Medications acetaminophen 325 mg oral capsule 2 capsule = 650 mg, By Mouth, Every 4 hours, PRN as needed for pain, # 90 capsule, 0 Refills, Acute 03/31/23 8:01:00 EST, 03/30/22 8:01:00 EST, Capsule, [facility]/pharmacy #[id number], Partial fill upon [...] 03/29/22 12:12:00 EST, [facility] 03/29/22 12:11:00 EST, Route to Pharmacy Electronically, [facility]/pharmacy #[id number], Partial fill upon patient request if the prescription is for a schedule II opi... Start Date: 03/29/22 Status: OrderedCrestor 5 mg oral tablet 1 tablet = 5 mg, By Mouth, Daily, # 30 tablet, 0 Refills, Maintenance, 01/19/22 13:30:00 EST, Tablet, [facility]/pharmacy #[id number], Partial fill upon patient request if the prescription is for a schedule II opioid drug., 160, cm, 01/19/22 8:55:00 EST, Height, 9... Start Date: 01/19/22 Status: Ordereddiclofenac 1% topical gel = 2 Gm, Topically, 4 times a day, # 240 Gm, 0 Refills, Maintenance, 03/30/22 8:01:00 EST, Gel, [facility]/pharmacy #[id number], Partial fill upon patient request if the prescription is for a schedule II opioid drug., 168, cm, 03/29/22 10:53:00 EST, Height, 87.4, k... Start Date: 03/30/22 Status: OrderedFlonase 50 mcg/inh nasal spray 1 sprays, Nares, Both, 2 times a day, # 16 Gm, 0 Refills, Maintenance, 03/10/22 13:15:00 EST, [place], Partial fill upon patient request if the prescription is for a schedule IIopioid drug., 1 sprays Nares, Both 2 times a day,... Start Date: 03/10/22 Status: OrderedLevemir FlexTouch 100 units/mL subcutaneous solution = 8 units, Subcutaneous Injection, Daily at bedtime, (NOT TAKING & HASN'T IN MONTHS), # 10 mL, 0Refills, Maintenance, 03/10/22 13:13:00 EST, Injection, [facility], Partial fill upon patient request if the prescription is for a schedule... Start Date: 03/10/22 Status: OrderedNIFEdipine 30 mg oral tablet, extended release 30 mg, 1, tablet, By Mouth, Daily, # 30 tablet, Refills 0, Tot. Refills 0, Maintenance, 03/10/22 13:15:00 EST, Route to Pharmacy Electronically, [facility], Partial fill upon patient request if the prescription is for a schedule II opioi... Start Date: 03/10/22 Stop Date: 04/09/22 Status: OrderedNovoLOG FlexPen 100 units/mL injectable solution 11-12 UNITS, Subcutaneous Injection, 3 times a day before meals, (NOT TAKING & HASN'T IN MONTHS), # 10 mL, 0 Refills, Maintenance, 03/10/22 13:12:00 EST, Injection, [facility], Partial fill upon patient request if the prescription is for... Start Date: 03/10/22 Status: Orderedondansetron 4 mg oral tablet 1 tablet = 4 mg, By Mouth, Every 8 hours, PRN Nausea & Vomiting, # 12 tablet, 0 Refills, Maintenance, 03/10/22 13:16:00 EST, Tablet, [facility], Partial fill upon patient request [...] Dry Weight Start Date: 03/10/22 Status: OrderedPen [place], 31 G x 5 mm BD Ultra [...] 0 Refills, Maintenance, 03/10/22 13:14:00 EST, Tablet, [facility], Partial fill [...] Migraine5 Confirmed Active Care Coordination Confirmed Active [facility], Hakan Angel, CC 1Managed by PCP. WEll controlled.2Self-manages. States currently stable. No medications.3Not seem at [facility] since 08/12/2016. Multiple no show in our center. She is seen by other provider Dr Matt Gutierrez by pharmacy records.4Managed by [id number] by PCP with Tylenol Results Radiology Reports Exam Date Time Procedure Performing Provider Status 04/05/22 6:14 PM Chest 2 Views Frontal and Lat Teresa Vang; Auth (Verified) Notes:(Chest 2 Views Frontal and Lat) Reason For Exam: Chest Pain;Other:RESULT: Chest 2 Views Frontal and Lat Chest 2 Views Frontal and Lat Hx of Present Illness: Patient reports increasing SOB, increasing bilat lower ext edema, right sidedchest pain. Patient also reports posterior head pain and right lateral chest pain since fall from standing yesterday.; Reason: Other:; Chest Pain; Clinical Question(s): Other: COMPARISON: X-ray from yesterday, 04/04/2022. FINDINGS: LINES AND TUBES: None. LUNGS AND PLEURA: Low lung volumes with mild basilar atelectasis. Lungs are otherwise clear with no consolidation. No pleural effusion. No pneumothorax. HEART, MEDIASTINUM AND EVERT: Heart is normal 04/04/2022 upper in size. Normal mediastinal and hilar contour. BONES AND SOFT TISSUES: No acute abnormality. IMPRESSION: Borderline cardiac enlargement without edema or effusions. WSN: [id number] Ordering Physician: Ata Arita Dictated By: Mihai Coates MD Dictated Date/Time: 04/05/22 6:20 pm Reviewed By: Mihai Coates MD Signed By: Mihai Coates MD Signed Date/Time: 04/05/22 6:20 pm Transcribed By: ALEXIS Transcribed Date/Time: 04/05/22 6:20 pm Vital Signs Most recent to oldest [Reference Range]: 1 2 Oxygen Saturation [94-100 %] 100 % 100 % (04/05/22 4:55 PM) (04/05/22 4:44 PM) Pulse Rate [55-90 bpm] 97 bpm 99 bpm *H* *H* (04/05/22 4:55 PM) (04/05/22 4:44 PM) Blood Pressure [90-138/55-84 mm Hg] 148/93 mm Hg *H* (04/05/22 4:55 PM) Respiratory Rate [16-30 br/min] 20 br/min (04/05/22 4:55 PM) Temperature [96.8-100.4 DegF] 98.8 DegF (04/05/22 4:55 PM) Mode of Delivery (Oxygen) Room air Room air (04/05/22 4:55 PM) (04/05/22 4:44 PM) Blood pressure sites Arm, left (04/05/22 4:55 PM) Temperature Route Oral (04/05/22 4:55 PM) Social History Social History Type Response Smoking Status Never (less than 100 in life time) entered on: 08/22/21 Sex Note BHSPowerscribe , CIS S: TRANSCRIBE Mihai Coates MD: VERIFY Event Display: Result: Authored Date: [id number] Chest 2 Views Frontal and Lat Hx of Present Illness: Patient reports increasing SOB, increasing bilat lower ext edema, right sidedchest pain. Patient also reports posterior head pain and right lateral chest pain since fall from standing yesterday.; Reason: Other:; Chest Pain; Clinical Question(s): Other: COMPARISON: X-ray from yesterday, 04/04/2022. FINDINGS: LINES AND TUBES: None. LUNGS AND PLEURA: Low lung volumes with mild basilar atelectasis. Lungs are otherwise clear with no consolidation. No pleural effusion. No pneumothorax. HEART, MEDIASTINUM AND EVERT: Heart is normal 04/04/2022 upper in size. Normal mediastinal and hilar contour. BONES AND SOFT TISSUES: No acute abnormality. IMPRESSION: Borderline cardiac enlargement without edema or effusions. WSN: [id number] Ordering Physician: Ata Arita Dictated By: Mihai Coates MD Dictated Date/Time: 04/05/22 6:20 pm Reviewed By: Mihai Coates MD Signed By: Mihai Coates MD Signed Date/Time: 04/05/22 6:20 pm Transcribed By: ALEXIS Transcribed Date/Time: 04/05/22 6:20 pm Patient Care team information Care Team PersonnelName: Anuradha Morris RN Position: [facility] RN Member Role: Primary Care Nurse Name: Samantha Reynolds RN Position: [facility] RN Member Role: Primary Care Nurse Name: Omega Gillespie RN Position: S RN Member Role: Primary Care Nurse Name: Paty Kelly RN Position: [facility] RN Member Role: Primary Care Nurse Name: Sonia Malone Position: S RN Member Role: Primary Care Nurse Name: Keira Desai RN Position: S RN Member Role: Primary Care Nurse Name: Gomez Moseley RN Position: [facility] RN Supv Member Role: Primary Care Nurse Name: Vashti Bruce RN Position: [facility] RN Member Role: Primary Care Nurse Name: Raghav Granger Position: [facility] RN Member Role: Primary Care Nurse Name: Cassy Caraballo RN Position: [facility] RN Member Role: Primary Care Nurse Name: Jodi Carrillo RN Position: [facility] RN Member Role: Primary Care Nurse Name: Abbey Shelley RN Position: [facility] RN Member Role: Primary Care Nurse Name: Larissa Barnett RN Position: [facility] RN Member Role: Primary Care Nurse Name: Inna Beckwith RN Position: [facility] RN Member Role: Primary Care Nurse Name: Cady Araya RN Position: [facility] RN Member Role: Primary Care Nurse Name: Abdon Beard MD Position: [facility] Outreach Member Role: PCP Address: Address: [address] [place] [id number]- Name: Anuradha Frank Position: [facility] RN Member Role: Primary Care Nurse Name: Michele Blancas DO Position: [facility] Renal MD Member Role: [employer] Consulting Physician Address: Address: [address] [place], [place] [address] [place] [address]- [place] Name: María Acosta RN Position: [facility] RN Member Role: Primary Care Nurse Name: Treasure Gilbert RN Position: [facility] RN Supv Member Role: Primary Care Nurse Name: Stefany Grajeda RN Position: [facility] RN Member Role: Primary Care Nurse Name: Farzana Sevilla Position: [facility] RN Member Role: Primary Care Nurse Name: Javan Pimentel MD Position: [facility] Renal MD Member Role: [employer] Consulting Physician Address: Address: [address] [place] [address] [address] [facility] [place] [place] [address]- [place] Name: Heather Pal RN Position: [facility] RN Member Role: Primary Care Nurse Name: Jody Rasmussen RN Position: [facility] RN Member Role: Primary Care Nurse Name: Luisa Devine RN Position: [facility] RN Member Role: Primary Care Nurse Name: Mau Hazel RN Position: [facility] RN Member Role: Primary Care Nurse Name: Pedro Taylor RN Position: [facility] RN Member Role: Primary Care Nurse Name: Charlotte Singletary RN Position: [facility] OB RN Member Role: Primary Care Nurse Name: Alison Jose RN Position: S RN Member Role: Primary Care Nurse Name: Kendall Coleman RN Position: [facility] RN Member Role: Primary Care Nurse Name: Nancy Fair RN Position: [facility] SN RN Member Role: Primary Care Nurse Name: Sofie Reed Position: S RN Member Role: Primary Care Nurse Name: Kasia Vital RN Position: [facility] RN Member Role: Primary Care Nurse Name: Fernando Siddiqi MD Position: [facility] Renal MD Member Role: [employer] Consulting Physician Address: Address: [address] [place] [address] [facility] [address] Name: Kaelyn Lewis RN Position: [facility] RN Member Role: Primary Care Nurse Name: Lianne Byrnes RN Position: [facility] RN Member Role: Primary Care Nurse Name: Tona Jacome LPN Position: S RN Member Role: Primary Care Nurse Name: Tatiana Madrigal RN Position: [facility] RN Member Role: Primary Care Nurse Name: Jose Callejas RN Position: [facility] RN Member Role: Primary Care Nurse Name: Ashely Riley Position: [facility] RN Member Role: Primary Care Nurse Care Team Related PersonsName: LEONOR MCFARLAND Address: home [address] [place] [address] Name: REJI TAYLOR Address: home [address] [place] [address] Name: ADELAJEFF Address: [address] Address: [address] [address] [place] Name: ELI BONILLA Address: home [address] [address]
[2022-05-10 17:04] LABS: Troponin-I High Sensitivity 13.8 ng/L (<3.5-17.0)
[2022-05-10 17:05] LABS: COVID-19 Test Negative (Negative); IDNOW Serial# 08D9AD1C; IDNOW Serial# 55D5AD1C; Influenza A Negative (Negative); Influenza B2 Negative (Negative)
[2022-05-10] MEDS: HYDROmorphone HCl 1 MG/ML SYRINGE IVPUSH (17:34)
[2022-05-10] MEDS: Labetalol HCL 100 MG/20 ML VIAL 10 MG IVPUSH ×2 (17:49→22:37)
[2022-05-10] MEDS: Furosemide 40 MG/4 ML VIAL IVPUSH (18:20)
[2022-05-10 18:38] LABS: TSH reflex Free T4 1.63 uIU/mL (0.32-4.0)
--- NOTE | 2022-05-10 18:41 | PHA.MEDREC ---
Pharmacy Consult ? Medication Reconciliation Pharmacy has completed the medication reconciliation Patient did not know her medications and told me to call [facility]. List is based off [employer] claims..
--- NOTE | 2022-05-10 19:13 | PM.IMHP ---
History of Present Illness Date of Service: 05/10/22 Attending physician on admission: Alejandra Sewell Chief Complaint: sob, cough 31 year old female with history of htn, insulin-dependent type 2 diabetes, HFrEF, CKD stage 4, mild intermittent asthma, chronic hypoxemic respiratory failure on 2 L supplemental O2 at baseline, diabetic retinopathy legally blind in right eye, hypertension, depression and anxiety, PAD s/p transmetatarsal amputation of foot and history of right foot osteomyelitis presented to the ED earlier today for evaluation of cough, shortness of breath, pleuritic chest pain ongoing for 2 days. She states she feels there is ?fluid in my lungs? and she does endorse at orthopnea and bilateral lower extremity edema. There has also been sneezing and sore throat. She denies any fevers, chills, dysphagia, abdominal pain, diarrhea, constipation, lightheadedness, palpitations, or chest pressure. She states since she has been in the ED, she has vomited twice secondary to cough and does feel nauseated. On arrival, patient tachycardic to 105, afebrile, hypertensive to 197/121. No acute hypoxia. Blood pressure did elevate 2205/124 and patient was given 10 mg IV labetalol and nitro paste with improvement to 187/114. There is no leukocytosis. Stable normocytic anemia with H/H 8.3/25.7%. Creatinine 3.11, consistent with baseline. BUN 41. Electrolyte levels unremarkable, glucose 153. Troponin within normal limits. BNP 2870, baseline around 1500. Negative for COVID-19, influenza. Chest x-ray showing central vascular engorgement with mild interstitial thickening raising possibility of pulmonary edema or correlate clinically for atypical/viral infections. EKG showing sinus tachycardia, rate 104, no ST or ST depressions. Review of Systems Review of Systems: Yes all other systems are reviewed and are negative [facility] Medical History Abnormal finding on echocardiogram Acute dyspnea Acute worsening of stage 3 chronic kidney disease MYNOR (acute kidney injury) Anemia Asthma Back pain Blind right eye Bone infection Cellulitis Cellulitis and abscess of foot Chest pain CHF (congestive heart failure) CKD (chronic kidney disease) Depression with anxiety Diabetes Diabetic retinopathy DM foot ulcer Elevated troponin Essential hypertension Fever Generalized edema HTN (hypertension) Migraine Osteomyelitis PAD (peripheral artery disease) Pleural effusion test positive test positive Sepsis Severe anemia Tachycardia Type 2 diabetes mellitus with hyperglycemia, with long-term current use of insulin Family History Mother Coronary artery disease Myocardial infarction Stroke Diabetes mellitus Father Myocardial infarction Surgical History History of transmetatarsal amputation of foot S/P transmetatarsal amputation of foot Social History Household Members: Significant Other Household Members Other:: Sister, [id number], nephew Housing: Apartment Do you presently have visiting nurse or other home services: Yes ([employer]ATION IM[employer]OVEMENT [employer]IST) Alcohol intake: never Patient Tobacco Use Status: Never used Tobacco Smoked in Last 30 Days: No e-Cigarette/Vaping Use: Never Used Second Hand Smoke Exposure: No Use of substances other than those prescribed or required for medical reasons: No Any prior treatment program specific to substance use: No Advance Directives: No Advance Directives Information Provided: No Advance Directives Date on File: 03/08/20 Patient : No service: No Current occupational status: unemployed and disabled Gender identity: Female Meds Allergies Allergy/AdvReac Type Severity Reaction Status Date / Time morphine [MORPHINE] Allergy Intermediate Itching Verified 05/10/22 15:55 azithromycin [From Zithromax] Allergy Hives Verified 05/10/22 15:55 gabapentin Allergy Facial Verified 05/10/22 15:55 Swelling tramadol Allergy Facial Verified 05/10/22 15:55 Swelling vancomycin Allergy Hives Verified 05/10/22 15:55 Active Medications: Current Medications Acetaminophen (Acetaminophen 325 Mg Tablet) 650 mg PO Q6H PRN PRN Reason: Pain, Mild (Pain Scale 1-3) Benzonatate (Benzonatate 100 Mg Capsule) 100 mg PO TID VASILE Diphenhydramine HCl (Diphenhydramine Hcl 25 Mg Capsule) 50 mg PO ONCE ONE Stop: 05/10/22 19:03 Furosemide (Furosemide 40 Mg/4 Ml Vial) 40 mg IVPUSH DAILY VASILE; Protocol Guaifenesin/Codeine Phosphate (Guaifen/Codeine Sf 200/20/10ml 10 Ml Liquid) 10 ml PO Q4H PRN PRN Reason: Cough Heparin Sodium (Porcine) (Heparin Sodium,Porcine 5,000 Unit/Ml Vial) 5,000 unit SUBCUT Q12H [facility] Ondansetron HCl (Ondansetron Hcl 4 Mg/2 Ml Vial) 4 mg IVPUSH Q8H PRN PRN Reason: Nausea and Vomiting Pharmacy Consult (Consult Rx Perform Med Rec) 1 each MISCELLANE ONCE PRN PRN Reason: Consult order Sodium Chloride (0.9 % Sodium Chloride Flush 3 Ml Syringe) 3 ml IVFLUSH QSHIFT [facility] Home Medications Medication Instructions Recorded Confirmed Last Taken Type acetaminophen 325 mg tablet 650 mg PO Q4H PRN Pain 04/01/22 05/10/22 Unknown History aspirin 81 mg tablet,delayed 2 tab PO DAILY 04/01/22 04/22/22 2 Days Ago History release ~04/20/22 diclofenac sodium 1 % topical gel 1 applic topical QID 04/01/22 05/10/22 2 Days Ago History ~04/20/22 nifedipine 30 mg tablet,extended 1 tab PO DAILY 04/01/22 05/10/22 2 Days Ago History release 24 hr ~04/20/22 pantoprazole 40 mg tablet,delayed 1 tab PO DAILY@0630 04/01/22 05/10/22 2 Days Ago History release ~04/20/22 torsemide 20 mg tablet 1 tab PO DAILY 04/01/22 05/10/22 2 Days Ago History ~04/20/22 insulin aspart U-100 100 unit/mL 2 - 10 unit subcut TID 05/10/22 05/10/22 Unknown History (3 mL) subcutaneous pen (Novolog FlexPen U-100 Insulin aspart) insulin detemir U-100 100 unit/mL 8 unit subcut BEDTIME 05/10/22 05/10/22 Unknown History (3 mL) subcutaneous pen (Levemir FlexTouch U-100 Insulin) Physical Exam Vital Signs and Narrative: Vital Signs: Last Vital Signs Temp 98.2 F 05/10/22 15:55 Pulse 102 H 05/10/22 18:22 Resp 17 05/10/22 18:22 BP 187/114 H 05/10/22 18:22 Pulse Ox 97 05/10/22 18:22 O2 Del Method 05/10/22 18:22 O2 Flow Rate 2 05/10/22 18:22 BMI result Body Mass Index 28.8 Constitutional - Awake and Alert, No apparent distress Eyes - PERRLA, EOMI Cardiovascular - S1S2, RRR, 2+ ble edema Respiratory - Normal lung expansion, Normal respiratory effort, No respiratory distress on 2 L supplemental O2, coarse crackles bilateral lower lobes and scattered expiratory wheezing Gastrointestinal - actively vomiting during exam. NT / ND; +BS; No rebound or guarding Extremities - no calf tenderness bilaterally, no swelling Skin - Warm/Dry Neurological - Alert & oriented x3, 5/5 strength BUE and BLE Psychological - Appropriate affect Results Labs 05/10/22 16:30 05/10/22 16:30 Labs: Laboratory Results - last 24 hr 05/10/22 05/10/22 05/10/22 16:30 16:30 16:30 MCV 86.0 MCH 27.8 MCHC 32.3 RDW 17.1 H Plt Count 204 MPV 11.6 Immature Gran % (Auto) 0.3 Neut % (Auto) 80.1 H Lymph % (Auto) 13.4 L Major % (Auto) 3.7 Eos % (Auto) 1.9 Baso % (Auto) 0.6 Lymph # (Auto) 0.8 L Major # (Auto) 0.2 Eos # (Auto) 0.1 Baso # (Auto) 0.0 Abs Immat Gran (auto) 0.02 Absolute Neuts (auto) 5.0 Absolute Nucleated RBC 0.000 Nucleated RBC % (auto) 0.0 PT 12.4 INR 1.1 Anion Gap 14 Estim Creat Clear Calc 29.5 Estimated GFR 17 Random Glucose 153 H Lactic Acid Calcium 8.3 L Magnesium 2.0 Total Bilirubin 1.4 H Direct Bilirubin 0.4 AST 20 ALT 23 Alkaline Phosphatase 84 Troponin I High Sens B-Natriuretic Peptide Total Protein 6.3 L Albumin 3.0 L Lipase 19 TSH 1.63 COVID-19 (CARO) COVID-19 Clin Com Influenza Type A ([facility]) Influenza Type B ([facility]ILTON) Influenza A & B Note 05/10/22 05/10/22 05/10/22 16:30 16:30 16:30 MCV MCH MCHC RDW Plt Count MPV Immature Gran % (Auto) Neut % (Auto) Lymph % (Auto) Major % (Auto) Eos % (Auto) Baso % (Auto) Lymph # (Auto) Major # (Auto) Eos # (Auto) Baso # (Auto) Abs Immat Gran (auto) Absolute Neuts (auto) Absolute Nucleated RBC Nucleated RBC % (auto) PT INR Anion Gap Estim Creat Clear Calc Estimated GFR Random Glucose Lactic Acid Calcium Magnesium Total Bilirubin Direct Bilirubin AST ALT Alkaline Phosphatase Troponin I High Sens 13.8 B-Natriuretic Peptide 2870 H Total Protein Albumin Lipase TSH COVID-19 (CARO) COVID-19 Clin Com Influenza Type A ([facility]) Negative Influenza Type B ([facility]) Negative Influenza A & B Note See Note 05/10/22 05/10/22 16:30 16:30 MCV MCH MCHC RDW Plt Count MPV Immature Gran % (Auto) Neut % (Auto) Lymph % (Auto) Major % (Auto) Eos % (Auto) Baso % (Auto) Lymph # (Auto) Major # (Auto) Eos # (Auto) Baso # (Auto) Abs Immat Gran (auto) Absolute Neuts (auto) Absolute Nucleated RBC Nucleated RBC % (auto) PT INR Anion Gap Estim Creat Clear Calc Estimated GFR Random Glucose Lactic Acid 0.8 Calcium Magnesium Total Bilirubin Direct Bilirubin AST ALT Alkaline Phosphatase Troponin I High Sens B-Natriuretic Peptide Total Protein Albumin Lipase TSH COVID-19 (CARO) Negative COVID-19 Clin Com See Note Influenza Type A ([facility]ILTON) Influenza Type B ([facility]TON) Influenza A & B Note Imaging Radiologist's Impressions: Impressions Chest X-Ray 05/10/22 16:59 IMPRESSION: Central vasculature engorgement with mild interstitial thickening raising the possibility of pulmonary edema in the appropriate clinical context. Recommend clinical correlation for atypical/viral infections as these may manifest similarly. Assessment and Plan (1) CHF (congestive heart failure): Status: Acute Plan 31 year old female with history of htn, insulin-dependent type 2 diabetes, HFrEF, CKD stage 4, mild intermittent asthma, chronic hypoxemic respiratory failure on 2 L supplemental O2 at baseline, diabetic retinopathy legally blind in right eye, hypertension, depression and anxiety, PAD s/p transmetatarsal amputation of foot and history of right foot osteomyelitis admitted for CHF exacerbation. #Acute CHF exacerbation -last echo 12/2020 showing mildly reduced LV systolic function with EF between 45-50% with impaired relaxation filling pattern and wall motion abnormality suggestive of CAD, mildly increased right ventricular size, mild MR, mildly to moderately elevated RV systolic pressure -CXR showing central pulmonary congestion -BNP 2500 -40 mg IV Lasix daily -cardiac diet -strict I&O, daily weights -update echocardiogram -appears to have previously been taking beta-mhoamud but unsure of compliance. Hold off on reinitiating carvedilol until evaluated by Cardiology -appreciate cardiology input -admit to telemetry -Follow bmp and bnp #? URI -cough could be secondary to CHF exacerbation, however also has sore throat -negative for COVID-19 and influenza. Full respiratory panel pending -Adan PRICE and Jacqueline Galloway # controlled insulin-dependent type 2 diabetes -last hemoglobin A1c 6.0% -dose adjusted basal insulin -Humalog on sliding scale -POC glucose -diabetic diet # hypertension-poorly controlled -given IV labetalol and nitro paste in ED -continue amlodipine and hydralazine -recommend beta-mohamud once euvolemic as above # chronic hypoxemic respiratory failure -no acute exacerbation -continue 2 L supplemental O2 # CKD stage 4 -renal function baseline -follow BMP DVT prophylaxis-heparin Full code Patient requires inpatient stay of at least 2 midnights for management of acute CHF exacerbation requiring IV diuresis and close monitoring as well as expert consultation Time Spent With Patient Time: Total time managing care of this patient today ____ minutes. Quality Stroke Does the patient have a stroke diagnosis?: No VTE Prior VTE?: No VTE Risk Level:: Medical - moderate - high VTE Device Contraindication: Treatment Not Indicated VTE Drug Contraindication: N/A - Med Ordered
[2022-05-10] MEDS: diphenhydrAMINE HCL 25 MG CAPSULE 50 MG PO (20:27)
[2022-05-10] MEDS: Benzonatate 100 MG CAPSULE PO (20:28)
[2022-05-10] MEDS: hydrALAZINE HCl 10 MG TABLET PO (20:29)
[2022-05-10 20:44] LABS: Appearance Urine Clear; Color Urine Yellow; Glucose Urine UA 500 mg/dL (Negative); Leukocyte Esterase Urine Negative (Negative); Nitrite Urine Negative (Negative); Specific Gravity - Urine 1.015 (1.005-1.025); UMIC TRIGGER UACC YES; Urine Blood Trace (Negative); Urine Ketones Negative (Negative); Urine Protein 300 (3+) mg/dL (Neg-Trace)
[2022-05-10 20:46] LABS: UPreg QC Valid YES; Urine Pregnancy NEGATIVE (NEGATIVE)
[2022-05-10 20:47] LABS: Bacteria Urine 4+ (None Seen); RBC Urine 0-2 /HPF (0-2); Squamous Epithelial Cell Urine 0-2 /HPF (0-2); WBC Urine 0-5 /HPF (0-5)
[2022-05-10] MEDS: 0.9 % Sodium Chloride Flush 3 ML SYRINGE IVFLUSH (22:42)
[2022-05-10] MEDS: HYDROmorphone HCl 0.5 MG/0.5 ML SYRINGE IVPUSH (22:48)
[2022-05-11] VITALS (7 sets, daily range): BP systolic 140–196; BP diastolic 92–119; PULSE 90–102; RESP 18–20; TEMP 36.1–37.1; O2SAT 96–100; BMI 28.5
[2022-05-11] MEDS: HYDROmorphone HCl 0.5 MG/0.5 ML SYRINGE IVPUSH (04:51)
--- NOTE | 2022-05-11 07:00 | CA_ITS ---
Transthoracic Echocardiogram Patient (Last, First, Middle): Shereen Taylor, Gender: Female Date of : 1990 Age: 31 Procedure Date: 05/11/2022 Procedure Type: Transthoracic Echocardi[place] [facility] [place]: 172.72 cm Weight: 84.82 kg BSA: 1.99 m2 Heart Rate: 94 bpm BP: 180 / 119 mmHg Bag Washer: SB Referring MD: Shelly SIGALA Symptoms: chf Study Quality: Adequate w contrast ECG Rhythm: Sinus Conclusions: - Normal left ventricular cavity size. There is moderately increased left ventricular wall thickness. The left ventricular systolic function is mild to moderately decreased. The visually estimated ejection fraction is between 35-40%. - Mildly increased right ventricular cavity size. There is borderline right ventricular systolic function. - There is a small circumferential pericardial effusion. There are no definitive echocardiographic findings of tamponade physiology. Findings Procedure Information Contrast agent, definity, is being given per protocol without apparent complications. Left Ventricle Normal left ventricular cavity size. There is moderately increased left ventricular wall thickness. The left ventricular systolic function is mild to moderately decreased. The visually estimated ejection fraction is between 35-40%. There is mild global hypokinesis. Abnormal diastolic function is noted. Spectral Doppler is indicative of a restrictive filling pattern. Elevated filling pressures. There is severe septal asymmetric hypertrophy. Right Ventricle Mildly increased right ventricular cavity size. There is borderline right ventricular systolic function. Atria The left atrium is moderately dilated. The right atrium is normal in size. Aortic Valve Normal aortic valve structure and function. There is no aortic valve stenosis. There is no aortic valve regurgitation. Mitral Valve The mitral valve appears normal. There is trace mitral valve regurgitation. There is no mitral valve stenosis. Pulmonic Valve Normal pulmonic valve structure and function. There is trace pulmonic valve regurgitation. Tricuspid Valve Normal tricuspid valve structure. There is moderate to severe tricuspid valve regurgitation. Moderately elevated right atrial pressure. Mild pulmonary hypertension is present. Great Vessels All visible segments of the aorta are normal in size. Venous The inferior vena cava is dilated and collapses greater than 50% with inspiration. Pericardium/Pleural There is a small circumferential pericardial effusion. There are no definitive echocardiographic findings of tamponade physiology. Prior Study Comparison Changes noted compared to prior study dated: 01/17/2021. EF 35-40%. Measurements 2D Linear Measurements IVSd: 1.49 0.6-0.9/0.6-1.0 cm LVIDd: 4.83 3.9-5.3/4.2-5.9 cm LVIDd Index: 2.43 2.4-3.2/2.2-3.1 cm/m2 LVIDs: 3.90 2.0-3.6 cm LVPWd: 1.26 0.7-1.1 cm LA Diam: 4.60 2.7-3.8/3.0-4.0 cm LAIDs Index: 2.31 1.5-2.3 cm/m2 LV Mass: 335.75 67-162/88-224 g LV Mass Index: 168.72 43-95/49-115 g/m2 LVOT Diam: 2.10 3.0+(-)1.3 cm 2D Systolic Function EF 4C: 36.90 >55% EF 2C: 39.20 >55% EF BiP: 39.40 >55% Mitral Valve MV Pk E: 1.05 MV PK A: 0.31 MV Decel Time: 181.00 E/A: 3.40 E'Lateral: 6.68 E'Medial: 3.23 E/E' Med: 32.50 E/E' Lat: 15.70 PHT: 53.00 MVA PHT: 4.15 Decel Pershing: 5.79 Aortic Valve AoV Pk Pietro: 0.97 AoV Pk Grad: 4.00 ANDREA: 2.23 LVOT LVOT Pk Pietro: 0.69 LVOT Mn Pietro: 0.45 LVOT VTI: 0.11 LVOT Pk Grad: 2.00 LVOT Mn Grad: 1.00 LVOT Diam: 2.10 LVOT Area: 3.46 Diastolic Function MV Pk E: 1.05 MV Pk A: 0.31 E/A: 3.40 E'Medial: 3.23 E/E' Med: 32.50 E' Laterial: 6.68 E/E' Lat: 15.70 Right Ventricle TAPSE (mm): 18.90 TVS' Pietro: 10.40 Tricuspid Valve TR Pk Pietro: 2.82 TR Pk Grad: 32.00 RA Press: 8.00 RVSP: 40.00 Great Vessels Aorta Sinus of Valsalva: 2.80 2.0-3.5 cm Ao Asc: 2.90 2.1-3.4 cm Ao Arch: 2.80 Ao Desc: 1.50 Pulmonary Veins Pulm Vein S/D 0.80 Pulmonary Valve PV Pk Pietro: 0.95 Peak PV Grad: 4.00 Updated in Other Vendor System with Status of Final Vinny Vera MD electronically signed on 05/11/2022 9:21:13 PM with status of Final
--- NOTE | 2022-05-11 07:33 | HO.PM.IMPN ---
Subjective Subjective Date of Service: 05/11/22 Physical Exam Vital Signs: Vital Signs: Last Vital Signs Temp 97.3 F 05/11/22 04:00 Pulse 102 H 05/11/22 04:00 Resp 18 05/11/22 04:00 BP 180/119 H 05/11/22 04:00 Pulse Ox 98 05/11/22 04:00 O2 Del Method 05/11/22 04:00 O2 Flow Rate 2 05/11/22 04:00 BMI result Body Mass Index 28.5 Objective Data Active Medications Acetaminophen (Acetaminophen 325 Mg Tablet) 650 mg PO Q6H PRN PRN Reason: Pain, Mild (Pain Scale 1-3) Amlodipine Besylate (Amlodipine Besylate 10 Mg Tablet) 10 mg PO DAILY [facility]; Protocol Benzonatate (Benzonatate 100 Mg Capsule) 100 mg PO TID [facility] Last Admin: 05/10/22 20:28 Dose: 100 mg Documented By: MELODIE Cyclobenzaprine HCl (Cyclobenzaprine Hcl 10 Mg Tablet) 10 mg PO TID PRN PRN Reason: muscle spasm Furosemide (Furosemide 40 Mg/4 Ml Vial) 40 mg IVPUSH BID [facility]; Protocol Last Admin: 05/10/22 20:50 Dose: Not Given Documented By: MELODIE Non-Admin Reason: Previously Administered Guaifenesin/Codeine Phosphate (Guaifen/Codeine Sf 200/20/10ml 10 Ml Liquid) 10 ml PO Q4H PRN PRN Reason: Cough Last Admin: 05/10/22 20:45 Dose: 10 ml Documented By: MELODIE Heparin Sodium (Porcine) (Heparin Sodium,Porcine 5,000 Unit/Ml Vial) 5,000 unit SUBCUT Q12H [facility] Last Admin: 05/11/22 06:34 Dose: Not Given Documented By: CARISSA Non-Admin Reason: Patient Refused Hydralazine HCl (Hydralazine Hcl 10 Mg Tablet) 10 mg PO BID [facility]; Protocol Last Admin: 05/10/22 20:29 Dose: 10 mg Documented By: MELODIE Insulin Glargine (Insulin Glargine,Hum.Rec.Anlog 100 Unit/Ml 10 Ml Vial) 4 unit SUBCUT BEDTIME [facility] Last Admin: 05/10/22 20:46 Dose: Not Given Documented By: MELODIE Non-Admin Reason: Patient Refused Lidocaine (Lidocaine 4 % Patch Adh..Patch) 1 patch TRANSDERMA DAILY [facility] Omeprazole (Omeprazole 20 Mg Capsule.Dr) 20 mg PO DAILY@0630 [facility] Last Admin: 05/11/22 06:34 Dose: Not Given Documented By: CARISSA Non-Admin Reason: Patient Refused Ondansetron HCl (Ondansetron Hcl 4 Mg/2 Ml Vial) 4 mg IVPUSH Q8H PRN PRN Reason: Nausea and Vomiting Pharmacy Consult (Consult Rx Perform Med Rec) 1 each MISCELLANE ONCE PRN PRN Reason: Consult order Sodium Chloride (0.9 % Sodium Chloride Flush 3 Ml Syringe) 3 ml IVFLUSH QSHIFT [facility] Last Admin: 05/10/22 22:42 Dose: 3 ml Documented By: CARISSA Labs 05/10/22 16:30 05/10/22 16:30 Labs: Laboratory Results - last 24 hr 05/10/22 05/10/22 05/10/22 16:30 16:30 16:30 MCV 86.0 MCH 27.8 MCHC 32.3 RDW 17.1 H Plt Count 204 MPV 11.6 Immature Gran % (Auto) 0.3 Neut % (Auto) 80.1 H Lymph % (Auto) 13.4 L [place] % (Auto) 3.7 Eos % (Auto) 1.9 Baso % (Auto) 0.6 Lymph # (Auto) 0.8 L [place] # (Auto) 0.2 Eos # (Auto) 0.1 Baso # (Auto) 0.0 Abs Immat Gran (auto) 0.02 Absolute Neuts (auto) 5.0 Absolute Nucleated RBC 0.000 Nucleated RBC % (auto) 0.0 PT 12.4 INR 1.1 Anion Gap 14 Estim Creat Clear Calc 29.5 Estimated GFR 17 Random Glucose 153 H Lactic Acid Calcium 8.3 L Magnesium 2.0 Total Bilirubin 1.4 H Direct Bilirubin 0.4 AST 20 ALT 23 Alkaline Phosphatase 84 Troponin I High Sens B-Natriuretic Peptide Total Protein 6.3 L Albumin 3.0 L Lipase 19 TSH 1.63 Urine Color Urine Appearance Urine pH Ur Specific [place] Urine Protein Urine Glucose (UA) Urine Ketones Urine Blood Urine Nitrite Ur Leukocyte Esterase Urine RBC Urine WBC Ur Squamous Epith Cells Urine Bacteria Hyaline Casts Urine Test COVID-19 ([facility]) COVID-19 Clin Com Influenza Type A ([facility]) Influenza Type B ([facility]) Influenza A & B Note 05/10/22 05/10/22 05/10/22 16:30 16:30 16:30 MCV MCH MCHC RDW Plt Count MPV Immature Gran % (Auto) Neut % (Auto) Lymph % (Auto) [place] % (Auto) Eos % (Auto) Baso % (Auto) Lymph # (Auto) [place] # (Auto) Eos # (Auto) Baso # (Auto) Abs Immat Gran (auto) Absolute Neuts (auto) Absolute Nucleated RBC Nucleated RBC % (auto) PT INR Anion Gap Estim Creat Clear Calc Estimated GFR Random Glucose Lactic Acid Calcium Magnesium Total Bilirubin Direct Bilirubin AST ALT Alkaline Phosphatase Troponin I High Sens 13.8 B-Natriuretic Peptide 2870 H Total Protein Albumin Lipase TSH Urine Color Urine Appearance Urine pH Ur Specific [place] Urine Protein Urine Glucose (UA) Urine Ketones Urine Blood Urine Nitrite Ur Leukocyte Esterase Urine RBC Urine WBC Ur Squamous Epith Cells Urine Bacteria Hyaline Casts Urine Test [facility] Influenza Type A ([facility]) Negative Influenza Type B ([facility]) Negative Influenza A & B Note See Note 05/10/22 05/10/22 05/10/22 16:30 16:30 20:34 MCV MCH MCHC RDW Plt Count MPV Immature Gran % (Auto) Neut % (Auto) Lymph % (Auto) [place] % (Auto) Eos % (Auto) Baso % (Auto) Lymph # (Auto) [place] # (Auto) Eos # (Auto) Baso # (Auto) Abs Immat Gran (auto) Absolute Neuts (auto) Absolute Nucleated RBC Nucleated RBC % (auto) PT INR Anion Gap Estim Creat Clear Calc Estimated GFR Random Glucose Lactic Acid 0.8 Calcium Magnesium Total Bilirubin Direct Bilirubin AST ALT Alkaline Phosphatase Troponin I High Sens B-Natriuretic Peptide Total Protein Albumin Lipase TSH Urine Color Yellow Urine Appearance Clear Urine pH 6.0 Ur Specific [place] 1.015 Urine Protein 300 (3+) H Urine Glucose (UA) 500 H Urine Ketones Negative Urine Blood Trace H Urine Nitrite Negative Ur Leukocyte Esterase Negative Urine RBC 0-2 Urine WBC 0-5 Ur Squamous Epith Cells 0-2 Urine Bacteria 4+ Hyaline Casts 3-5 Urine Test COVID-19 (CARO) Negative COVID-19 Clin Com See Note Influenza Type A ([facility]) Influenza Type B ([facility]) Influenza A & B Note 05/10/22 20:34 MCV MCH MCHC RDW Plt Count MPV Immature Gran % (Auto) Neut % (Auto) Lymph % (Auto) [place] % (Auto) Eos % (Auto) Baso % (Auto) Lymph # (Auto) [place] # (Auto) Eos # (Auto) Baso # (Auto) Abs Immat Gran (auto) Absolute Neuts (auto) Absolute Nucleated RBC Nucleated RBC % (auto) PT INR Anion Gap Estim Creat Clear Calc Estimated GFR Random Glucose Lactic Acid Calcium Magnesium Total Bilirubin Direct Bilirubin AST ALT Alkaline Phosphatase Troponin I High Sens B-Natriuretic Peptide Total Protein Albumin Lipase TSH Urine Color Urine Appearance Urine pH Ur Specific [place] Urine Protein Urine Glucose (UA) Urine Ketones Urine Blood Urine Nitrite Ur Leukocyte Esterase Urine RBC Urine WBC Ur Squamous Epith Cells Urine Bacteria Hyaline Casts Urine Test NEGATIVE COVID-19 ([facility]) COVID-19 Clin Com Influenza Type A ([facility]) Influenza Type B ([facility]) Influenza A & B Note Assessment and Plan (1) Chest pain: Status: Acute (2) CHF (congestive heart failure): Status: Acute Plan 31 year old female with history of htn, insulin-dependent type 2 diabetes, HFrEF, CKD stage 4, mild intermittent asthma, chronic hypoxemic respiratory failure on 2 L supplemental O2 at baseline, diabetic retinopathy legally blind in right eye, hypertension, depression and anxiety, PAD s/p transmetatarsal amputation of foot and history of right foot osteomyelitis admitted for CHF exacerbation. #Acute CHF exacerbation -last echo 12/2020 showing mildly reduced LV systolic function with EF between 45-50% with impaired relaxation filling pattern and wall motion abnormality suggestive of CAD, mildly increased right ventricular size, mild MR, mildly to moderately elevated RV systolic pressure, BNP of 2500, CXR showing central pulmonary congestion -40 mg IV Lasix daily -cardiac diet - I&O, daily weights -get echocardiogram -appears to have previously been taking beta-mohamud but unsure of compliance.? Hold off on reinitiating carvedilol until evaluated by Cardiology -Follow bmp and bnp #?? URI -cough could be secondary to CHF exacerbation, however also has sore throat -negative for COVID-19 and influenza.? Full respiratory panel pending -Adan PRICE and Jacqueline Galloway # controlled insulin-dependent type 2 diabetes -last hemoglobin A1c 6.0% -dose adjusted basal insulin -Humalog on sliding scale -POC glucose -diabetic diet # hypertension-poorly controlled -given IV labetalol and nitro paste in ED -continue amlodipine and hydralazine -recommend beta-mohamud once euvolemic as above -May need nephrology to help with management # chronic hypoxemic respiratory failure -no acute exacerbation -continue 2 L supplemental O2 # CKD stage 4 -renal function baseline -follow BMP DVT prophylaxis-heparin Full code Need for inpatient: acute heart failure, acute heart failure needing diuretics Time Spent With Patient Time: Total time managing care of this patient today ____ minutes. Quality Stroke Does the patient have a stroke diagnosis?: No VTE Prior VTE?: No VTE Risk Level:: Medical - moderate - high VTE Device Contraindication: Treatment Not Indicated VTE Drug Contraindication: N/A - Med Ordered
--- NOTE | 2022-05-11 07:37 | P.PNIM_ITS ---
Subjective Subjective Date of Service: 05/11/22 Interval History: f/u on heart failure, uncontrolled HTN interval history: c/o headaches, BP high but has come down Physical Exam Vital Signs: Vital Signs: Last Vital Signs Temp 97.3 F 05/11/22 04:00 Pulse 102 H 05/11/22 04:00 Resp 18 05/11/22 04:00 BP 180/119 H 05/11/22 04:00 Pulse Ox 98 05/11/22 04:00 O2 Del Method 05/11/22 04:00 O2 Flow Rate 2 05/11/22 04:00 BMI result Body Mass Index 28.5 Const: Other: General: AO X 3, no acute distress Resp: CTA bilateral CVS: S1,S2,RRR GI: +BS, NT, no distention Skin: No rash Neuro: motor grossly intact Psych: appropriate affect Objective Data Active Medications Acetaminophen (Acetaminophen 325 Mg Tablet) 650 mg PO Q6H PRN PRN Reason: Pain, Mild (Pain Scale 1-3) Amlodipine Besylate (Amlodipine Besylate 10 Mg Tablet) 10 mg PO DAILY [facility]; Protocol Benzonatate (Benzonatate 100 Mg Capsule) 100 mg PO TID [facility] Last Admin: 05/10/22 20:28 Dose: 100 mg Documented By: MELODIE Cyclobenzaprine HCl (Cyclobenzaprine Hcl 10 Mg Tablet) 10 mg PO TID PRN PRN Reason: muscle spasm Furosemide (Furosemide 40 Mg/4 Ml Vial) 40 mg IVPUSH BID [facility]; Protocol Last Admin: 05/10/22 20:50 Dose: Not Given Documented By: MELODIE Non-Admin Reason: Previously Administered Guaifenesin/Codeine Phosphate (Guaifen/Codeine Sf 200/20/10ml 10 Ml Liquid) 10 ml PO Q4H PRN PRN Reason: Cough Last Admin: 05/10/22 20:45 Dose: 10 ml Documented By: MELODIE Heparin Sodium (Porcine) (Heparin Sodium,Porcine 5,000 Unit/Ml Vial) 5,000 unit SUBCUT Q12H [facility] Last Admin: 05/11/22 06:34 Dose: Not Given Documented By: CARISSA Non-Admin Reason: Patient Refused Hydralazine HCl (Hydralazine Hcl 10 Mg Tablet) 10 mg PO BID [facility]; Protocol Last Admin: 05/10/22 20:29 Dose: 10 mg Documented By: MELODIE Insulin Glargine (Insulin Glargine,Hum.Rec.Anlog 100 Unit/Ml 10 Ml Vial) 4 unit SUBCUT BEDTIME [facility] Last Admin: 05/10/22 20:46 Dose: Not Given Documented By: MELODIE Non-Admin Reason: Patient Refused Lidocaine (Lidocaine 4 % Patch Adh..Patch) 1 patch TRANSDERMA DAILY [facility] Omeprazole (Omeprazole 20 Mg Capsule.Dr) 20 mg PO DAILY@0630 [facility] Last Admin: 05/11/22 06:34 Dose: Not Given Documented By: CARISSA Non-Admin Reason: Patient Refused Ondansetron HCl (Ondansetron Hcl 4 Mg/2 Ml Vial) 4 mg IVPUSH Q8H PRN PRN Reason: Nausea and Vomiting Pharmacy Consult (Consult Rx Perform Med Rec) 1 each MISCELLANE ONCE PRN PRN Reason: Consult order Sodium Chloride (0.9 % Sodium Chloride Flush 3 Ml Syringe) 3 ml IVFLUSH QSHIFT [facility] Last Admin: 05/10/22 22:42 Dose: 3 ml Documented By: CARISSA Labs 05/10/22 16:30 05/10/22 16:30 Labs: Laboratory Results - last 24 hr 05/10/22 05/10/22 05/10/22 16:30 16:30 16:30 MCV 86.0 MCH 27.8 MCHC 32.3 RDW 17.1 H Plt Count 204 MPV 11.6 Immature Gran % (Auto) 0.3 Neut % (Auto) 80.1 H Lymph % (Auto) 13.4 L [place] % (Auto) 3.7 Eos % (Auto) 1.9 Baso % (Auto) 0.6 Lymph # (Auto) 0.8 L [place] # (Auto) 0.2 Eos # (Auto) 0.1 Baso # (Auto) 0.0 Abs Immat Gran (auto) 0.02 Absolute Neuts (auto) 5.0 Absolute Nucleated RBC 0.000 Nucleated RBC % (auto) 0.0 PT 12.4 INR 1.1 Anion Gap 14 Estim Creat Clear Calc 29.5 Estimated GFR 17 Random Glucose 153 H Lactic Acid Calcium 8.3 L Magnesium 2.0 Total Bilirubin 1.4 H Direct Bilirubin 0.4 AST 20 ALT 23 Alkaline Phosphatase 84 Troponin I High Sens B-Natriuretic Peptide Total Protein 6.3 L Albumin 3.0 L Lipase 19 TSH 1.63 Urine Color Urine Appearance Urine pH Ur Specific [place] Urine Protein Urine Glucose (UA) Urine Ketones Urine Blood Urine Nitrite Ur Leukocyte Esterase Urine RBC Urine WBC Ur Squamous Epith Cells Urine Bacteria Hyaline Casts Urine Test COVID-19 ([facility]) COVID-19 Clin Com Influenza Type A ([facility]) Influenza Type B ([facility]) Influenza A & B Note 05/10/22 05/10/22 05/10/22 16:30 16:30 16:30 MCV MCH MCHC RDW Plt Count MPV Immature Gran % (Auto) Neut % (Auto) Lymph % (Auto) [place] % (Auto) Eos % (Auto) Baso % (Auto) Lymph # (Auto) [place] # (Auto) Eos # (Auto) Baso # (Auto) Abs Immat Gran (auto) Absolute Neuts (auto) Absolute Nucleated RBC Nucleated RBC % (auto) PT INR Anion Gap Estim Creat Clear Calc Estimated GFR Random Glucose Lactic Acid Calcium Magnesium Total Bilirubin Direct Bilirubin AST ALT Alkaline Phosphatase Troponin I High Sens 13.8 B-Natriuretic Peptide 2870 H Total Protein Albumin Lipase TSH Urine Color Urine Appearance Urine pH Ur Specific [place] Urine Protein Urine Glucose (UA) Urine Ketones Urine Blood Urine Nitrite Ur Leukocyte Esterase Urine RBC Urine WBC Ur Squamous Epith Cells Urine Bacteria Hyaline Casts Urine Test COVID-19 ([facility]) COVID-19 Clin Com Influenza Type A ([facility]) Negative Influenza Type B ([facility]) Negative Influenza A & B Note See Note 05/10/22 05/10/22 05/10/22 16:30 16:30 20:34 MCV MCH MCHC RDW Plt Count MPV Immature Gran % (Auto) Neut % (Auto) Lymph % (Auto) [place] % (Auto) Eos % (Auto) Baso % (Auto) Lymph # (Auto) [place] # (Auto) Eos # (Auto) Baso # (Auto) Abs Immat Gran (auto) Absolute Neuts (auto) Absolute Nucleated RBC Nucleated RBC % (auto) PT INR Anion Gap Estim Creat Clear Calc Estimated GFR Random Glucose Lactic Acid 0.8 Calcium Magnesium Total Bilirubin Direct Bilirubin AST ALT Alkaline Phosphatase Troponin I High Sens B-Natriuretic Peptide Total Protein Albumin Lipase TSH Urine Color Yellow Urine Appearance Clear Urine pH 6.0 Ur Specific [place] 1.015 Urine Protein 300 (3+) H Urine Glucose (UA) 500 H Urine Ketones Negative Urine Blood Trace H Urine Nitrite Negative Ur Leukocyte Esterase Negative Urine RBC 0-2 Urine WBC 0-5 Ur Squamous Epith Cells 0-2 Urine Bacteria 4+ Hyaline Casts 3-5 Urine Test COVID-19 (CARO) Negative COVID-19 Clin Com See Note Influenza Type A ([facility]) Influenza Type B ([facility]) Influenza A & B Note 05/10/22 20:34 MCV MCH MCHC RDW Plt Count MPV Immature Gran % (Auto) Neut % (Auto) Lymph % (Auto) [place] % (Auto) Eos % (Auto) Baso % (Auto) Lymph # (Auto) [place] # (Auto) Eos # (Auto) Baso # (Auto) Abs Immat Gran (auto) Absolute Neuts (auto) Absolute Nucleated RBC Nucleated RBC % (auto) PT INR Anion Gap Estim Creat Clear Calc Estimated GFR Random Glucose Lactic Acid Calcium Magnesium Total Bilirubin Direct Bilirubin AST ALT Alkaline Phosphatase Troponin I High Sens B-Natriuretic Peptide Total Protein Albumin Lipase TSH Urine Color Urine Appearance Urine pH Ur Specific [place] Urine Protein Urine Glucose (UA) Urine Ketones Urine Blood Urine Nitrite Ur Leukocyte Esterase Urine RBC Urine WBC Ur Squamous Epith Cells Urine Bacteria Hyaline Casts Urine Test NEGATIVE COVID-19 ([facility]) COVID-19 Clin Com Influenza Type A ([facility]) Influenza Type B ([facility]) Influenza A & B Note Assessment and Plan (1) Chest pain: Status: Acute (2) CHF (congestive heart failure): Status: Acute Plan 31 year old female with history of htn, insulin-dependent type 2 diabetes, HFrEF, CKD stage 4, mild intermittent asthma, chronic hypoxemic respiratory failure on 2 L supplemental O2 at baseline, diabetic retinopathy legally blind in right eye, hypertension, depression and anxiety, PAD s/p transmetatarsal amputation of foot and history of right foot osteomyelitis admitted for CHF exacerbation. #Acute CHF exacerbation -last echo 12/2020 showing mildly reduced LV systolic function with EF between 45-50% with impaired relaxation filling pattern and wall motion abnormality suggestive of CAD, mildly increased right ventricular size, mild MR, mildly to moderately elevated RV systolic pressure, BNP of 2500, CXR showing central pulmonary congestion -40 mg IV Lasix daily -cardiac diet - I&O, daily weights -get echocardiogram -appears to have previously been taking beta-mohamud but unsure of compliance.? Hold off on reinitiating carvedilol until evaluated by Cardiology -Follow bmp and bnp #?? URI -cough could be secondary to CHF exacerbation, however also has sore throat -negative for COVID-19 and influenza.? Full respiratory panel pending -Adan PRICE and Jacqueline Galloway # controlled insulin-dependent type 2 diabetes -last hemoglobin A1c 6.0% -dose adjusted basal insulin -Humalog on sliding scale -POC glucose -diabetic diet # hypertension-poorly controlled -given IV labetalol and nitro paste in ED -continue amlodipine and hydralazine -recommend beta-mohamud once euvolemic as above -May need nephrology to help with management # chronic hypoxemic respiratory failure -no acute exacerbation -continue 2 L supplemental O2 # CKD stage 4 -renal function baseline -follow BMP #Headache, acute on chronic and takes dilaudid for it -Dilaudid PO DVT prophylaxis-heparin Full code Need for inpatient: acute heart failure, acute heart failure needing diuretics Time Spent With Patient Time: Total time managing care of this patient today ____ minutes. Quality Stroke Does the patient have a stroke diagnosis?: No VTE Prior VTE?: No VTE Risk Level:: Medical - moderate - high VTE Device Contraindication: Treatment Not Indicated VTE Drug Contraindication: N/A - Med Ordered
[2022-05-11] MEDS: amLODIPine Besylate 10 MG TABLET PO (08:12)
[2022-05-11] MEDS: Benzonatate 100 MG CAPSULE PO (08:12)
[2022-05-11] MEDS: hydrALAZINE HCl 10 MG TABLET PO (08:12)
[2022-05-11] MEDS: Lidocaine 4 % Patch ADH..PATCH 1 PATCH TRANSDERMA (08:12)
[2022-05-11] MEDS: Furosemide 40 MG/4 ML VIAL IVPUSH (08:13)
[2022-05-11] MEDS: 0.9 % Sodium Chloride Flush 3 ML SYRINGE IVFLUSH (08:13)
[2022-05-11] MEDS: guaiFEN/Codeine SF 200/20/10ML 10 ML LIQUID PO (08:14)
--- NOTE | 2022-05-11 08:29 | MHC.CM.PN ---
CM met with Patient at bedside and addressed IMM with her verbally and original left with Patient (Legally Blind); a copy has also been placed on the chart. Patient lives in an apartment with her Fiance/HCP and she receives 50 [employer] hours/week. Home/resume said services is the goal and CM has initiated and will follow for dc planning.Patient has received Moderna/Covid vax x2 and her PCP is Dr. Abdon Beard.
[2022-05-11 08:46] LABS: Basophils Percent Auto 0.2 % (0-2); Hemoglobin 8.6 g/dl (12.0-16.0); Imm Gran Abs Auto 0.04 X10*3/uL (0.00-0.03); Imm Gran Pct Auto 0.8 % (0.0-0.4); Lymphocytes Absolute Auto 0.3 X10*3/uL (1.2-4.9); MANUAL DIFF FLAG SCAN; Mean Corpuscular HGB Conc 31.9 g/dl (31.0-35.0); Mean Corpuscular Hemoglobin 27.7 pg (27.0-33.0); Mean Corpuscular Volume 86.8 fL (80.0-98.0); Mean Platelet Volume 12.4 fL (9.4-12.3); Monocytes Absolute Auto 0.1 X10*3/uL (0.1-1.2); Monocytes Percent Auto 1.7 % (2-11); Neutrophils Absolute Auto 4.9 x10*3/uL (2.0-8.3); Neutrophils Percent Auto 91.3 % (45-73); Platelet Count 202 X10*3/uL (160-400); Red Blood Count 3.11 X10*6/uL (4.20-5.50); Red Cell Distribution Width 17.3 % (11.0-16.0); SCAN SMEAR FLAG 1; White Blood Count 5.3 X10*3/uL (4.8-10.8)
[2022-05-11 09:06] LABS: Anion Gap 17 (12-20); Blood Urea Nitrogen 43 mg/dL (9-16); Calcium 8.3 mg/dL (8.4-10.2); Carbon Dioxide 17 mmol/L (22-29); Chloride 105 mmol/L (96-108); Creatinine Clr Calc Pharmacy 26.9; Estimated Glomerular Filt Rate 16; Glucose Random 293 mg/dL (60-115); Potassium 4.7 mmol/L (3.3-5.1); Sodium 134 mmol/L (135-145)
[2022-05-11 09:13] LABS: B Type Natriuretic Peptide 3323 pg/mL (<100)
[2022-05-11 09:20] LABS: SLIDE REVIEW VERIFIED
--- NOTE | 2022-05-11 11:11 | P.CONNP_ITS ---
History of Present Illness Reason for Consult Consult date: 05/11/22 Chief Complaint Chief complaint: CHF exacerbation History of Present Illness Narrative: 31 year old female with diabetic retinopathy who is legally blind in right eye, PAD s/p transmetatarsal amputation of foot and history of right foot osteomyelitis presented to the ED for evaluation of cough, shortness of breath, pleuritic chest pain ongoing for 2 days.? She states she feels there is ?fluid in my lungs? and she does endorse at orthopnea and bilateral lower extremity edema.? She denies any fevers, chills, dysphagia, abdominal pain, diarrhea, constipation, lightheadedness, palpitations, or chest pressure.?? On arrival, patient was tachycardic with HR upto 105, afebrile, hypertensive to 197/121.? No acute hypoxia.? There is no leukocytosis.? Stable normocytic anemia with H/H 8.3/25.7%.? Creatinine 3.11 with .? BUN 41.? ? Chest x-ray showed central vascular engorgement with mild interstitial thickening raising possibility of pulmonary edema or correlate clinically for atypical/viral infections.? EKG showing sinus tachycardia, rate 104, no ST or ST depressions. She was admitted for further management. Nephrology has been consulted to assist in her clinical care during her current hospital stay Review of Systems Review of Systems Yes all other systems are reviewed and are negative [facility]LY [facility] Past Medical History Medical History Abnormal finding on echocardiogram Acute dyspnea Acute worsening of stage 3 chronic kidney disease MYNOR (acute kidney injury) Anemia Asthma Back pain Blind right eye Bone infection Cellulitis Cellulitis and abscess of foot Chest pain CHF (congestive heart failure) CKD (chronic kidney disease) Depression with anxiety Diabetes Diabetic retinopathy DM foot ulcer Elevated troponin Essential hypertension Fever Generalized edema HTN (hypertension) Migraine Osteomyelitis PAD (peripheral artery disease) Pleural effusion test positive test positive Sepsis Severe anemia Tachycardia Type 2 diabetes mellitus with hyperglycemia, with long-term current use of insulin Family History Family History Mother Coronary artery disease Myocardial infarction Stroke Diabetes mellitus Father Myocardial infarction Surgical History Surgical History History of transmetatarsal amputation of foot S/P transmetatarsal amputation of foot Social History Social History Household Members: Significant Other Household Members Other:: Sister, [id number], nephew Housing: Apartment Do you presently have visiting nurse or other home services: No Alcohol intake: never Patient Tobacco Use Status: Never used Tobacco e-Cigarette/Vaping Use: Never Used Second Hand Smoke Exposure: No Advance Directives Date on File: 03/08/20 service: No Current occupational status: disabled Gender identity: Female Meds Allergies Allergy/AdvReac Type Severity Reaction Status Date / Time morphine [MORPHINE] Allergy Intermediate Itching Verified 05/10/22 15:55 azithromycin [From Zithromax] Allergy Hives Verified 05/10/22 15:55 gabapentin Allergy Facial Verified 05/10/22 15:55 Swelling tramadol Allergy Facial Verified 05/10/22 15:55 Swelling vancomycin Allergy Hives Verified 05/10/22 15:55 Active Medications: Current Medications Acetaminophen (Acetaminophen 325 Mg Tablet) 650 mg PO Q6H PRN PRN Reason: Pain, Mild (Pain Scale 1-3) Last Admin: 05/12/22 01:22 Dose: 650 mg Amlodipine Besylate (Amlodipine Besylate 10 Mg Tablet) 10 mg PO DAILY [facility]; Protocol Last Admin: 05/11/22 08:12 Dose: 10 mg Benzonatate (Benzonatate 100 Mg Capsule) 100 mg PO TID [facility] Last Admin: 05/11/22 21:30 Dose: Not Given Cyclobenzaprine HCl (Cyclobenzaprine Hcl 10 Mg Tablet) 10 mg PO TID PRN PRN Reason: muscle spasm Furosemide (Furosemide 40 Mg/4 Ml Vial) 40 mg IVPUSH BID [facility]; Protocol Last Admin: 05/11/22 21:30 Dose: Not Given Guaifenesin/Codeine Phosphate (Guaifen/Codeine Sf 200/20/10ml 10 Ml Liquid) 10 ml PO Q4H PRN PRN Reason: Cough Last Admin: 05/11/22 08:14 Dose: 10 ml Heparin Sodium (Porcine) (Heparin Sodium,Porcine 5,000 Unit/Ml Vial) 5,000 unit SUBCUT Q12H [facility]AS[facility] Last Admin: 05/11/22 18:19 Dose: Not Given Hydralazine HCl (Hydralazine Hcl 25 Mg Tablet) 25 mg PO TID [facility]; Protocol Last Admin: 05/11/22 21:01 Dose: 25 mg Hydromorphone HCl (Hydromorphone Hcl 2 Mg Tablet) 2 mg PO Q6H PRN PRN Reason: Pain, Severe (Pain Scale 7-10) Last Admin: 05/12/22 01:22 Dose: 2 mg Insulin Glargine (Insulin Glargine,Hum.Rec.Anlog 100 Unit/Ml 10 Ml Vial) 4 unit SUBCUT BEDTIME [facility] Last Admin: 05/11/22 21:30 Dose: Not Given Lidocaine (Lidocaine 4 % Patch Adh..Patch) 1 patch TRANSDERMA DAILY [facility] Last Admin: 05/11/22 08:12 Dose: 1 patch Omeprazole (Omeprazole 20 Mg Capsule.Dr) 20 mg PO DAILY@0630 [facility] Last Admin: 05/11/22 06:34 Dose: Not Given Ondansetron HCl (Ondansetron Hcl 4 Mg/2 Ml Vial) 4 mg IVPUSH Q8H PRN PRN Reason: Nausea and Vomiting Pharmacy Consult (Consult Rx Perform Med Rec) 1 each MISCELLANE ONCE PRN PRN Reason: Consult order Sodium Chloride (0.9 % Sodium Chloride Flush 3 Ml Syringe) 3 ml IVFLUSH QSHIFT [facility] Last Admin: 05/12/22 01:29 Dose: Not Given Home Medications Medication Instructions Recorded Confirmed Last Taken Type acetaminophen 325 mg tablet 650 mg PO Q4H PRN Pain 04/01/22 05/10/22 Unknown History aspirin 81 mg tablet,delayed 2 tab PO DAILY 04/01/22 04/22/22 2 Days Ago History release ~04/20/22 diclofenac sodium 1 % topical gel 1 applic topical QID 04/01/22 05/10/22 2 Days Ago History ~04/20/22 nifedipine 30 mg tablet,extended 1 tab PO DAILY 04/01/22 05/10/22 2 Days Ago History release 24 hr ~04/20/22 pantoprazole 40 mg tablet,delayed 1 tab PO DAILY@0630 04/01/22 05/10/22 2 Days Ago History release ~04/20/22 torsemide 20 mg tablet 1 tab PO DAILY 04/01/22 05/10/22 2 Days Ago History ~04/20/22 insulin aspart U-100 100 unit/mL 2 - 10 unit subcut TID 05/10/22 05/10/22 Unknown History (3 mL) subcutaneous pen (Novolog FlexPen U-100 Insulin aspart) insulin detemir U-100 100 unit/mL 8 unit subcut BEDTIME 05/10/22 05/10/22 Unknown History (3 mL) subcutaneous pen (Levemir FlexTouch U-100 Insulin) Physical Exam Vital Signs: Last Vital Signs Temp 96.8 F 05/12/22 04:00 Pulse 79 05/12/22 04:00 Resp 16 05/12/22 04:00 BP 119/68 05/12/22 04:00 Pulse Ox 97 05/12/22 04:00 O2 Del Method 05/12/22 04:00 O2 Flow Rate 2 05/11/22 12:00 BMI result Body Mass Index 28.1 Const General: no acute distress Orientation/consciousness: patient oriented x3 Neck Neck: Yes supple Resp Auscultation: diminished lung sounds Cardio Rate: regular rate GI Palpation (GI): Soft to palpation Skin General skin exam: no rashes or lesions noted Neuro General: patient oriented x3 Results Lab Results 05/11/22 08:20 05/11/22 08:20 Lab results: Chemistry 05/10/22 05/11/22 16:30 08:20 Sodium 138 134 L Potassium 4.0 4.7 Carbon Dioxide 19 L 17 L BUN 41 H 43 H Creatinine 3.11 H 3.39 H Calcium 8.3 L 8.3 L Hematology 05/10/22 05/11/22 16:30 08:20 WBC 6.3 5.3 Hgb 8.3 L 8.6 L Plt Count 204 202 Urinalysis 05/10/22 20:34 Urine Color Yellow Urine Appearance Clear Urine pH 6.0 Ur Specific [place] 1.015 Urine Protein 300 (3+) H Urine Glucose (UA) 500 H Urine Ketones Negative Urine Blood Trace H Urine Nitrite Negative Ur Leukocyte Esterase Negative Urine RBC 0-2 Urine WBC 0-5 Ur Squamous Epith Cells 0-2 Hyaline Casts 3-5 Assessment and Plan (1) MYNOR (acute kidney injury): Status: Acute Plan Has mild MYNOR due to compromise in renal perfusion Has advanced CKD at baseline; BP control needs to be optimal Currently getting diuresis; Suggest to change Amlodipine to Imdur and add low dose CoReg Continue current dose of hydralazine. C/W rest of current management NO indication for renal replacement. Labs AM. Shall closely F/U Time Spent With Patient Time: Total time managing care of this patient today ____ minutes. Procedures Date of Service Date of Service: 05/11/22
[2022-05-11 11:23] LABS: Adenovirus PCR Not Detected (Not Detect.); Bordetella parapertussis PCR Not Detected (Not Detect.); Bordetella pertussis PCR Not Detected (Not Detect.); Chlamydia pneumoniae PCR Not Detected (Not Detect.); Coronavirus 229E PCR Not Detected (Not Detect.); Coronavirus HKU1 PCR Not Detected (Not Detect.); Coronavirus NL63 PCR Not Detected (Not Detect.); Coronavirus OC43 PCR Not Detected (Not Detect.); Human metapneumovirus PCR Not Detected (Not Detect.); Influenza A PCR Not Detected (Not Detect.); Influenza B PCR Not Detected (Not Detect.); Mycoplasma pneumoniae PCR Not Detected (Not Detect.); Parainfluenza 1 PCR Not Detected (Not Detect.); Parainfluenza 2 PCR Not Detected (Not Detect.); Parainfluenza 3 PCR Not Detected (Not Detect.); Parainfluenza 4 PCR Not Detected (Not Detect.); RSV PCR Not Detected (Not Detect.); Rhino/Enterovirus PCR Not Detected (Not Detect.); SARS-CoV-2 PCR Not Detected (Not Detect.)
[2022-05-11] MEDS: HYDROmorphone HCl 2 MG TABLET PO ×2 (12:13→18:22)
--- NOTE | 2022-05-11 16:48 | PM.CNCAR ---
History of Present Illness History of Present Illness Date of Service: 05/11/22 Requesting physician: Shelly Vasquez Chief complaint: CHF exacerbation Narrative: 31-year-old female who has known history of diabetes, chronic kidney disease, diabetic retinopathy, hypertension, depression, anxiety, peripheral arterial disease with previous transmetatarsal amputation of the foot and right foot osteomyelitis, asthma and heart failure with reduced ejection fraction. She has history of hypertension which is uncontrolled. She is presenting with shortness of breath and chest x-ray evidence of pulmonary edema. Her blood pressure was significantly elevated on admission. She is anemic due to underlying chronic kidney disease. She was started on IV diuretics and is feeling little better. She is saying she has been taking her medications regularly although she has shared some noncompliance with the medicine team. No chest discomfort. [facility] Past Medical History Medical History Abnormal finding on echocardiogram Acute dyspnea Acute worsening of stage 3 chronic kidney disease MYNOR (acute kidney injury) Anemia Asthma Back pain Blind right eye Bone infection Cellulitis Cellulitis and abscess of foot Chest pain CHF (congestive heart failure) CKD (chronic kidney disease) Depression with anxiety Diabetes Diabetic retinopathy DM foot ulcer Elevated troponin Essential hypertension Fever Generalized edema HTN (hypertension) Migraine Osteomyelitis PAD (peripheral artery disease) Pleural effusion test positive test positive Sepsis Severe anemia Tachycardia Type 2 diabetes mellitus with hyperglycemia, with long-term current use of insulin Family History Family History Mother Coronary artery disease Myocardial infarction Stroke Diabetes mellitus Father Myocardial infarction Surgical History Surgical History History of transmetatarsal amputation of foot S/P transmetatarsal amputation of foot Social History Social History Household Members: Significant Other Household Members Other:: Sister, [id number], nephew Housing: Apartment Do you presently have visiting nurse or other home services: No Alcohol intake: never Patient Tobacco Use Status: Never used Tobacco e-Cigarette/Vaping Use: Never Used Second Hand Smoke Exposure: No Advance Directives Date on File: 03/08/20 service: No Current occupational status: disabled Gender identity: Female Meds Allergies Allergy/AdvReac Type Severity Reaction Status Date / Time morphine [MORPHINE] Allergy Intermediate Itching Verified 05/10/22 15:55 azithromycin [From Zithromax] Allergy Hives Verified 05/10/22 15:55 gabapentin Allergy Facial Verified 05/10/22 15:55 Swelling tramadol Allergy Facial Verified 05/10/22 15:55 Swelling vancomycin Allergy Hives Verified 05/10/22 15:55 Active Medications: Current Medications Acetaminophen (Acetaminophen 325 Mg Tablet) 650 mg PO Q6H PRN PRN Reason: Pain, Mild (Pain Scale 1-3) Amlodipine Besylate (Amlodipine Besylate 10 Mg Tablet) 10 mg PO DAILY [facility]; Protocol Last Admin: 05/11/22 08:12 Dose: 10 mg Benzonatate (Benzonatate 100 Mg Capsule) 100 mg PO TID [facility] Last Admin: 05/11/22 08:12 Dose: 100 mg Cyclobenzaprine HCl (Cyclobenzaprine Hcl 10 Mg Tablet) 10 mg PO TID PRN PRN Reason: muscle spasm Furosemide (Furosemide 40 Mg/4 Ml Vial) 40 mg IVPUSH BID [facility]; Protocol Last Admin: 05/11/22 08:13 Dose: 40 mg Guaifenesin/Codeine Phosphate (Guaifen/Codeine Sf 200/20/10ml 10 Ml Liquid) 10 ml PO Q4H PRN PRN Reason: Cough Last Admin: 05/11/22 08:14 Dose: 10 ml Heparin Sodium (Porcine) (Heparin Sodium,Porcine 5,000 Unit/Ml Vial) 5,000 unit SUBCUT Q12H [facility] Last Admin: 05/11/22 06:34 Dose: Not Given Hydralazine HCl (Hydralazine Hcl 10 Mg Tablet) 10 mg PO BID [facility]; Protocol Last Admin: 05/11/22 08:12 Dose: 10 mg Hydromorphone HCl (Hydromorphone Hcl 2 Mg Tablet) 2 mg PO Q6H PRN PRN Reason: Pain, Severe (Pain Scale 7-10) Last Admin: 05/11/22 12:13 Dose: 2 mg Insulin Glargine (Insulin Glargine,Hum.Rec.Anlog 100 Unit/Ml 10 Ml Vial) 4 unit SUBCUT BEDTIME [facility] Last Admin: 05/10/22 20:46 Dose: Not Given Lidocaine (Lidocaine 4 % Patch Adh..Patch) 1 patch TRANSDERMA DAILY [facility] Last Admin: 05/11/22 08:12 Dose: 1 patch Omeprazole (Omeprazole 20 Mg Deep.) 20 mg PO DAILY@0630 [facility] Last Admin: 05/11/22 06:34 Dose: Not Given Ondansetron HCl (Ondansetron Hcl 4 Mg/2 Ml Vial) 4 mg IVPUSH Q8H PRN PRN Reason: Nausea and Vomiting Pharmacy Consult (Consult Rx Perform Med Rec) 1 each MISCELLANE ONCE PRN PRN Reason: Consult order Sodium Chloride (0.9 % Sodium Chloride Flush 3 Ml Syringe) 3 ml IVFLUSH QSHIFT [facility] Last Admin: 05/11/22 08:13 Dose: 3 ml Home Medications Medication Instructions Recorded Confirmed Last Taken Type acetaminophen 325 mg tablet 650 mg PO Q4H PRN Pain 04/01/22 05/10/22 Unknown History aspirin 81 mg tablet,delayed 2 tab PO DAILY 04/01/22 04/22/22 2 Days Ago History release ~04/20/22 diclofenac sodium 1 % topical gel 1 applic topical QID 04/01/22 05/10/22 2 Days Ago History ~04/20/22 nifedipine 30 mg tablet,extended 1 tab PO DAILY 04/01/22 05/10/22 2 Days Ago History release 24 hr ~04/20/22 pantoprazole 40 mg tablet,delayed 1 tab PO DAILY@0630 04/01/22 05/10/22 2 Days Ago History release ~04/20/22 torsemide 20 mg tablet 1 tab PO DAILY 04/01/22 05/10/22 2 Days Ago History ~04/20/22 insulin aspart U-100 100 unit/mL 2 - 10 unit subcut TID 05/10/22 05/10/22 Unknown History (3 mL) subcutaneous pen (Novolog FlexPen U-100 Insulin aspart) insulin detemir U-100 100 unit/mL 8 unit subcut BEDTIME 05/10/22 05/10/22 Unknown History (3 mL) subcutaneous pen (Levemir FlexTouch U-100 Insulin) Physical Exam Vital Signs: Vital Signs: Last Vital Signs Temp 96.9 F 05/11/22 15:39 Pulse 96 05/11/22 15:39 Resp 20 05/11/22 15:39 BP 159/93 H 05/11/22 15:39 Pulse Ox 100 05/11/22 15:39 O2 Del Method 05/11/22 15:39 O2 Flow Rate 2 05/11/22 12:00 BMI result Body Mass Index 28.5 GENERAL APPEARANCE: in no acute distress, on supplemental oxygen. Laying flat. NECK: no carotid bruit, no significant jugular venous distention. SKIN: no suspicious lesions, warm and dry. HEART: no murmurs, regular rate and rhythm. LUNGS: clear to auscultation bilaterally. ABDOMEN: soft, nontender. EXTREMITIES: no edema. PERIPHERAL PULSES: equal. NEUROLOGIC: No gross deficits, AAO X 3 Objective Labs and Meds 05/11/22 08:20 05/11/22 08:20 Lab results: Laboratory Results - last 24 hr 05/10/22 05/10/22 05/10/22 16:30 16:30 16:30 WBC 6.3 RBC 2.99 L Hgb 8.3 L Hct 25.7 L MCV 86.0 MCH 27.8 MCHC 32.3 RDW 17.1 H Plt Count 204 MPV 11.6 Immature Gran % (Auto) 0.3 Neut % (Auto) 80.1 H Lymph % (Auto) 13.4 L Foster % (Auto) 3.7 Eos % (Auto) 1.9 Baso % (Auto) 0.6 Lymph # (Auto) 0.8 L Foster # (Auto) 0.2 Eos # (Auto) 0.1 Baso # (Auto) 0.0 Abs Immat Gran (auto) 0.02 Absolute Neuts (auto) 5.0 Absolute Nucleated RBC 0.000 Nucleated RBC % (auto) 0.0 Smear Tech's Comments PT 12.4 INR 1.1 Sodium 138 Potassium 4.0 Chloride 109 H Carbon Dioxide 19 L Anion Gap 14 BUN 41 H Creatinine 3.11 H Estim Creat Clear Calc 29.5 Estimated GFR 17 Random Glucose 153 H Lactic Acid Calcium 8.3 L Magnesium 2.0 Total Bilirubin 1.4 H Direct Bilirubin 0.4 AST 20 ALT 23 Alkaline Phosphatase 84 Troponin I High Sens B-Natriuretic Peptide Total Protein 6.3 L Albumin 3.0 L Lipase 19 TSH 1.63 Urine Color Urine Appearance Urine pH Ur Specific Hoff[place]ister Urine Protein Urine Glucose (UA) Urine Ketones Urine Blood Urine Nitrite Ur Leukocyte Esterase Urine RBC Urine WBC Ur Squamous Epith Cells Urine Bacteria Hyaline Casts Urine Test Respiratory Panel Noe Adenovirus (Rapid PCR) B.pert (TEM-PCR) B.parapertussis DNA PCR C. pneumoniae DNA (PCR) Coronavirus OC43 (PCR) Coronavirus HKU1 (PCR) Coronavirus 229E (PCR) COVID-19 (CARO) COVID-19 Clin Com Coronavirus NL63 (PCR) Human Metapneumovir PCR Influenza Type A (MILTON) Influenza A (RT-PCR) Influenza Type B (MILTON) Influenza B (RT-PCR) Influenza A & B Note M. pneumoniae (PCR) Parainfluenza 1 (PCR) Parainfluenza 2 (PCR) Parainfluenza 3 (PCR) Parainfluenza 4 (PCR) RSV (PCR) Entero/Rhino (PCR) SARS-CoV-2 RNA (RT-PCR) 05/10/22 05/10/22 05/10/22 16:30 16:30 16:30 WBC RBC Hgb Hct MCV MCH MCHC RDW Plt Count MPV Immature Gran % (Auto) Neut % (Auto) Lymph % (Auto) Foster % (Auto) Eos % (Auto) Baso % (Auto) Lymph # (Auto) Foster # (Auto) Eos # (Auto) Baso # (Auto) Abs Immat Gran (auto) Absolute Neuts (auto) Absolute Nucleated RBC Nucleated RBC % (auto) Smear Tech's Comments PT INR Sodium Potassium Chloride Carbon Dioxide Anion Gap BUN Creatinine Estim Creat Clear Calc Estimated GFR Random Glucose Lactic Acid Calcium Magnesium Total Bilirubin Direct Bilirubin AST ALT Alkaline Phosphatase Troponin I High Sens 13.8 B-Natriuretic Peptide 2870 H Total Protein Albumin Lipase TSH Urine Color Urine Appearance Urine pH Ur Specific Hoff[place]ister Urine Protein Urine Glucose (UA) Urine Ketones Urine Blood Urine Nitrite Ur Leukocyte Esterase Urine RBC Urine WBC Ur Squamous Epith Cells Urine Bacteria Hyaline Casts Urine Test Respiratory Panel Noe Adenovirus (Rapid PCR) B.pert (TEM-PCR) B.parapertussis DNA PCR C. pneumoniae DNA (PCR) Coronavirus OC43 (PCR) Coronavirus HKU1 (PCR) Coronavirus 229E (PCR) COVID-19 (CARO) COVID-19 Clin Com Coronavirus NL63 (PCR) Human Metapneumovir PCR Influenza Type A ([facility]TON) Negative Influenza A (RT-PCR) Influenza Type B ([facility]ILTON) Negative Influenza B (RT-PCR) Influenza A & B Note See Note M. pneumoniae (PCR) Parainfluenza 1 (PCR) Parainfluenza 2 (PCR) Parainfluenza 3 (PCR) Parainfluenza 4 (PCR) RSV (PCR) Entero/Rhino (PCR) SARS-CoV-2 RNA (RT-PCR) 05/10/22 05/10/22 05/10/22 16:30 16:30 20:34 WBC RBC Hgb Hct MCV MCH MCHC RDW Plt Count MPV Immature Gran % (Auto) Neut % (Auto) Lymph % (Auto) Foster % (Auto) Eos % (Auto) Baso % (Auto) Lymph # (Auto) Foster # (Auto) Eos # (Auto) Baso # (Auto) Abs Immat Gran (auto) Absolute Neuts (auto) Absolute Nucleated RBC Nucleated RBC % (auto) Smear Tech's Comments PT INR Sodium Potassium Chloride Carbon Dioxide Anion Gap BUN Creatinine Estim Creat Clear Calc Estimated GFR Random Glucose Lactic Acid 0.8 Calcium Magnesium Total Bilirubin Direct Bilirubin AST ALT Alkaline Phosphatase Troponin I High Sens B-Natriuretic Peptide Total Protein Albumin Lipase TSH Urine Color Yellow Urine Appearance Clear Urine pH 6.0 Ur Specific [place] 1.015 Urine Protein 300 (3+) H Urine Glucose (UA) 500 H Urine Ketones Negative Urine Blood Trace H Urine Nitrite Negative Ur Leukocyte Esterase Negative Urine RBC 0-2 Urine WBC 0-5 Ur Squamous Epith Cells 0-2 Urine Bacteria 4+ Hyaline Casts 3-5 Urine Test Respiratory Panel Noe Adenovirus (Rapid PCR) B.pert (TEM-PCR) B.parapertussis DNA PCR C. pneumoniae DNA (PCR) Coronavirus OC43 (PCR) Coronavirus HKU1 (PCR) Coronavirus 229E (PCR) COVID-19 (CARO) Negative COVID-19 Clin Com See Note Coronavirus NL63 (PCR) Human Metapneumovir PCR Influenza Type A ([facility]) Influenza A (RT-PCR) Influenza Type B ([facility]TON) Influenza B (RT-PCR) Influenza A & B Note M. pneumoniae (PCR) Parainfluenza 1 (PCR) Parainfluenza 2 (PCR) Parainfluenza 3 (PCR) Parainfluenza 4 (PCR) RSV (PCR) Entero/Rhino (PCR) SARS-CoV-2 RNA (RT-PCR) 05/10/22 05/10/22 05/11/22 20:34 20:34 08:20 WBC 5.3 RBC 3.11 L Hgb 8.6 L Hct 27.0 L MCV 86.8 MCH 27.7 MCHC 31.9 RDW 17.3 H Plt Count 202 MPV 12.4 H Immature Gran % (Auto) 0.8 H Neut % (Auto) 91.3 H Lymph % (Auto) 6.0 L Foster % (Auto) 1.7 L Eos % (Auto) 0.0 Baso % (Auto) 0.2 Lymph # (Auto) 0.3 L Foster # (Auto) 0.1 Eos # (Auto) 0.0 Baso # (Auto) 0.0 Abs Immat Gran (auto) 0.04 H Absolute Neuts (auto) 4.9 Absolute Nucleated RBC 0.000 Nucleated RBC % (auto) 0.0 Smear Tech's Comments VERIFIED PT INR Sodium Potassium Chloride Carbon Dioxide Anion Gap BUN Creatinine Estim Creat Clear Calc Estimated GFR Random Glucose Lactic Acid Calcium Magnesium Total Bilirubin Direct Bilirubin AST ALT Alkaline Phosphatase Troponin I High Sens B-Natriuretic Peptide Total Protein Albumin Lipase TSH Urine Color Urine Appearance Urine pH Ur Specific Hoff[place] Urine Protein Urine Glucose (UA) Urine Ketones Urine Blood Urine Nitrite Ur Leukocyte Esterase Urine RBC Urine WBC Ur Squamous Epith Cells Urine Bacteria Hyaline Casts Urine Test NEGATIVE Respiratory Panel Noe See Note Adenovirus (Rapid PCR) Not Detected B.pert (TEM-PCR) Not Detected B.parapertussis DNA PCR Not Detected C. pneumoniae DNA (PCR) Not Detected Coronavirus OC43 (PCR) Not Detected Coronavirus HKU1 (PCR) Not Detected Coronavirus 229E (PCR) Not Detected COVID-19 (CARO) COVID-19 Clin Com Coronavirus NL63 (PCR) Not Detected Human Metapneumovir PCR Not Detected Influenza Type A ([facility]) Influenza A (RT-PCR) Not Detected Influenza Type B ([facility]) Influenza B (RT-PCR) Not Detected Influenza A & B Note M. pneumoniae (PCR) Not Detected Parainfluenza 1 (PCR) Not Detected Parainfluenza 2 (PCR) Not Detected Parainfluenza 3 (PCR) Not Detected Parainfluenza 4 (PCR) Not Detected RSV (PCR) Not Detected Entero/Rhino (PCR) Not Detected SARS-CoV-2 RNA (RT-PCR) Not Detected 05/11/22 05/11/22 08:20 08:20 WBC RBC Hgb Hct MCV MCH MCHC RDW Plt Count MPV Immature Gran % (Auto) Neut % (Auto) Lymph % (Auto) Foster % (Auto) Eos % (Auto) Baso % (Auto) Lymph # (Auto) Foster # (Auto) Eos # (Auto) Baso # (Auto) Abs Immat Gran (auto) Absolute Neuts (auto) Absolute Nucleated RBC Nucleated RBC % (auto) Smear Tech's Comments PT INR Sodium 134 L Potassium 4.7 Chloride 105 Carbon Dioxide 17 L Anion Gap 17 BUN 43 H Creatinine 3.39 H Estim Creat Clear Calc 26.9 Estimated GFR 16 Random Glucose 293 H Lactic Acid Calcium 8.3 L Magnesium Total Bilirubin Direct Bilirubin AST ALT Alkaline Phosphatase Troponin I High Sens B-Natriuretic Peptide 3323 H Total Protein Albumin Lipase TSH Urine Color Urine Appearance Urine pH Ur Specific [place] Urine Protein Urine Glucose (UA) Urine Ketones Urine Blood Urine Nitrite Ur Leukocyte Esterase Urine RBC Urine WBC Ur Squamous Epith Cells Urine Bacteria Hyaline Casts Urine Test Respiratory Panel Noe Adenovirus (Rapid PCR) B.pert (TEM-PCR) B.parapertussis DNA PCR C. pneumoniae DNA (PCR) Coronavirus OC43 (PCR) Coronavirus HKU1 (PCR) Coronavirus 229E (PCR) COVID-19 (CARO) COVID-19 Clin Com Coronavirus NL63 (PCR) Human Metapneumovir PCR Influenza Type A ([facility]) Influenza A (RT-PCR) Influenza Type B ([facility]) Influenza B (RT-PCR) Influenza A & B Note M. pneumoniae (PCR) Parainfluenza 1 (PCR) Parainfluenza 2 (PCR) Parainfluenza 3 (PCR) Parainfluenza 4 (PCR) RSV (PCR) Entero/Rhino (PCR) SARS-CoV-2 RNA (RT-PCR) Imaging Radiologist's impression: Impressions Chest X-Ray 05/10/22 16:59 IMPRESSION: Central vasculature engorgement with mild interstitial thickening raising the possibility of pulmonary edema in the appropriate clinical context. Recommend clinical correlation for atypical/viral infections as these may manifest similarly. Assessment and Plan (1) CHF (congestive heart failure): Status: Acute (2) Hypertension: Status: Acute Plan 31-year-old female with diabetes uncontrolled hypertension and previous history of mildly reduced ejection fraction with EF of 40-45% was presenting with significantly elevated blood pressure and congestive heart failure. I think CHF is due to underlying uncontrolled hypertension. She does not appear to be significantly volume overloaded which also goes along with high afterload due to hypertension being the cause for the congestive heart failure. Blood pressure readings appear to be little better but still significantly elevated. Agree with echocardiography to reassess the ejection fraction. Hydralazine should be increased to 25 mg 3 times a day. This can be titrated further 50 mg 3 times a day in the next 24-48 hours. I think blood pressure control is the brian issue currently. We will follow along with you. Thank you for allowing me to participate in the care of your patient. Please feel free to contact me if you have any questions. Time Spent With Patient Time: Total time managing care of this patient today ____ minutes. Procedures Date of Service Date of Service: 05/11/22
[2022-05-11 20:12] LABS: Glucose, Whole Blood 243 mg/dL (60-115)
[2022-05-11] MEDS: hydrALAZINE HCl 25 MG TABLET PO (21:01)
[2022-05-12] MEDS: Acetaminophen 325 MG TABLET 650 MG PO (01:22)
[2022-05-12] MEDS: HYDROmorphone HCl 2 MG TABLET PO ×2 (01:22→08:07)
[2022-05-12 04:00] VITALS: BP 119/68; PULSE 79; RESP 16; TEMP 36; O2SAT 97
[2022-05-12 06:00] VITALS: BMI 28.1
[2022-05-12 08:00] VITALS: BP 150/92; PULSE 84; RESP 20; TEMP 36.4; O2SAT 100
[2022-05-12] MEDS: amLODIPine Besylate 10 MG TABLET PO (08:07)
[2022-05-12] MEDS: Benzonatate 100 MG CAPSULE PO ×2 (08:07→15:21)
[2022-05-12] MEDS: hydrALAZINE HCl 25 MG TABLET PO ×3 (08:07→22:53)
[2022-05-12] MEDS: 0.9 % Sodium Chloride Flush 3 ML SYRINGE IVFLUSH ×2 (08:08→22:50)
[2022-05-12] MEDS: Furosemide 40 MG/4 ML VIAL IVPUSH ×2 (08:08→22:55)
[2022-05-12] MEDS: Lidocaine 4 % Patch ADH..PATCH 1 PATCH TRANSDERMA (08:11)
[2022-05-12] MEDS: HYDROmorphone HCl 0.5 MG/0.5 ML SYRINGE IVPUSH ×3 (10:19→22:58)
--- NOTE | 2022-05-12 10:36 | MHC.CM.PN ---
Per ROUNDS discussion Patient is c/o an intense MENDIOLA; patient is not yet medically cleared for dc. Home/resume reel fed printer and home O2 is the goal and CM will continue to follow.
--- NOTE | 2022-05-12 10:43 | P.PNIM_ITS ---
Subjective Subjective Date of Service: 05/12/22 Interval History: f/u on heart failure, uncontrolled HTN interval history: still c/o headaches, BP is better Physical Exam Vital Signs: Vital Signs: Last Vital Signs Temp 97.6 F 05/12/22 08:00 Pulse 84 05/12/22 08:00 Resp 20 05/12/22 08:00 BP 150/92 H 05/12/22 08:00 Pulse Ox 100 05/12/22 08:00 O2 Del Method 05/12/22 08:00 O2 Flow Rate 2 05/11/22 12:00 BMI result Body Mass Index 28.1 Const: Other: General: AO X 3, no acute distress Resp: CTA bilateral CVS: S1,S2,RRR GI: +BS, NT, no distention Skin: No rash Neuro: motor grossly intact Psych: appropriate affect Objective Data Active Medications Acetaminophen (Acetaminophen 325 Mg Tablet) 650 mg PO Q6H PRN PRN Reason: Pain, Mild (Pain Scale 1-3) Last Admin: 05/12/22 01:22 Dose: 650 mg Documented By: EVETTE Amlodipine Besylate (Amlodipine Besylate 10 Mg Tablet) 10 mg PO DAILY [facility]; Protocol Last Admin: 05/12/22 08:07 Dose: 10 mg Documented By: SEAN Benzonatate (Benzonatate 100 Mg Capsule) 100 mg PO TID [facility] Last Admin: 05/12/22 08:07 Dose: 100 mg Documented By: SEAN Cyclobenzaprine HCl (Cyclobenzaprine Hcl 10 Mg Tablet) 10 mg PO TID PRN PRN Reason: muscle spasm Furosemide (Furosemide 40 Mg/4 Ml Vial) 40 mg IVPUSH BID [facility]; Protocol Last Admin: 05/12/22 08:08 Dose: 40 mg Documented By: SEAN Guaifenesin/Codeine Phosphate (Guaifen/Codeine Sf 200/20/10ml 10 Ml Liquid) 10 ml PO Q4H PRN PRN Reason: Cough Last Admin: 05/11/22 08:14 Dose: 10 ml Documented By: SEAN Heparin Sodium (Porcine) (Heparin Sodium,Porcine 5,000 Unit/Ml Vial) 5,000 unit SUBCUT Q12H [facility] Last Admin: 05/12/22 06:15 Dose: Not Given Documented By: EVETTE Non-Admin Reason: Patient Refused Hydralazine HCl (Hydralazine Hcl 25 Mg Tablet) 25 mg PO TID [facility]; Protocol Last Admin: 05/12/22 08:07 Dose: 25 mg Documented By: SEAN Hydromorphone HCl (Hydromorphone Hcl 2 Mg Tablet) 2 mg PO Q6H PRN PRN Reason: Pain, Severe (Pain Scale 7-10) Last Admin: 05/12/22 08:07 Dose: 2 mg Documented By: SEAN Hydromorphone HCl (Hydromorphone Hcl 0.5 Mg/0.5 Ml Syringe) 0.5 mg IVPUSH Q4H PRN; Protocol PRN Reason: Pain, Severe (Pain Scale 7-10) Last Admin: 05/12/22 10:19 Dose: 0.5 mg Documented By: SEAN Insulin Glargine (Insulin Glargine,Hum.Rec.Anlog 100 Unit/Ml 10 Ml Vial) 4 unit SUBCUT BEDTIME [facility] Last Admin: 05/11/22 21:30 Dose: Not Given Documented By: EVETTE Non-Admin Reason: Patient Refused Lidocaine (Lidocaine 4 % Patch Adh..Patch) 1 patch TRANSDERMA DAILY [facility] Last Admin: 05/12/22 08:11 Dose: 1 patch Documented By: SEAN Omeprazole (Omeprazole 20 Mg Capsule.Dr) 20 mg PO DAILY@0630 [facility] Last Admin: 05/12/22 06:15 Dose: Not Given Documented By: EVETTE Non-Admin Reason: Patient Refused Ondansetron HCl (Ondansetron Hcl 4 Mg/2 Ml Vial) 4 mg IVPUSH Q8H PRN PRN Reason: Nausea and Vomiting Pharmacy Consult (Consult Rx Perform Med Rec) 1 each MISCELLANE ONCE PRN PRN Reason: Consult order Sodium Chloride (0.9 % Sodium Chloride Flush 3 Ml Syringe) 3 ml IVFLUSH QSHIFT [facility] Last Admin: 05/12/22 08:08 Dose: 3 ml Documented By: SEAN Labs 05/11/22 08:20 05/11/22 08:20 Labs: Laboratory Results - last 24 hr 05/10/22 05/11/22 20:34 20:03 POC Glucose 243 H Respiratory Panel Noe See Note Adenovirus (Rapid PCR) Not Detected B.pert (TEM-PCR) Not Detected B.parapertussis DNA PCR Not Detected C. pneumoniae DNA (PCR) Not Detected Coronavirus OC43 (PCR) Not Detected Coronavirus HKU1 (PCR) Not Detected Coronavirus 229E (PCR) Not Detected Coronavirus NL63 (PCR) Not Detected Human Metapneumovir PCR Not Detected Influenza A (RT-PCR) Not Detected Influenza B (RT-PCR) Not Detected M. pneumoniae (PCR) Not Detected Parainfluenza 1 (PCR) Not Detected Parainfluenza 2 (PCR) Not Detected Parainfluenza 3 (PCR) Not Detected Parainfluenza 4 (PCR) Not Detected RSV (PCR) Not Detected Entero/Rhino (PCR) Not Detected SARS-CoV-2 RNA (RT-PCR) Not Detected Microbiology Microbiology Results: Microbiology 05/10/22 16:30 Blood Culture - Preliminary Blood - Venous No growth after 24 hours. 05/10/22 16:30 Blood Culture - Preliminary Blood - Venous No growth after 24 hours. Assessment and Plan (1) Chest pain: Status: Acute (2) CHF (congestive heart failure): Status: Acute Plan 31 year old female with history of htn, insulin-dependent type 2 diabetes, HFrEF, CKD stage 4, mild intermittent asthma, chronic hypoxemic respiratory failure on 2 L supplemental O2 at baseline, diabetic retinopathy legally blind in right eye, hypertension, depression and anxiety, PAD s/p transmetatarsal amputation of foot and history of right foot osteomyelitis admitted for CHF exacerbation. #Acute CHF exacerbation -last echo 12/2020 showing mildly reduced LV systolic function with EF between 45-50% with impaired relaxation filling pattern and wall motion abnormality suggestive of CAD, mildly increased right ventricular size, mild MR, mildly to m oderately elevated RV systolic pressure, BNP of 2500, CXR showing central pulmonary congestion -change to PO Lasix -cardiac diet - I&O, daily weights -get echocardiogram -appears to have previously been taking beta-mohamud but unsure of compliance.? Hold off on reinitiating carvedilol until evaluated by Cardiology -Follow bmp and bnp #?? URI -cough could be secondary to CHF exacerbation, however also has sore throat -negative for COVID-19 and influenza.? Full respiratory panel pending -Adan PRICE and Jacqueline Galloway # controlled insulin-dependent type 2 diabetes -last hemoglobin A1c 6.0% -dose adjusted basal insulin -Humalog on sliding scale -POC glucose -diabetic diet # hypertension-poorly controlled, probably non compliant at home, BP is much better here -given IV labetalol and nitro paste in ED -continue amlodipine and hydralazine -c # chronic hypoxemic respiratory failure -no acute exacerbation -continue 2 L supplemental O2 # CKD stage 4 -renal function baseline -follow BMP #Headache, acute on chronic and takes dilaudid for it -Dilaudid iv, if persistis then ct of head DVT prophylaxis-heparin Full code Need for inpatient: acute heart failure, acute heart failure needing diuretics Time Spent With Patient Time: Total time managing care of this patient today ____ minutes. Quality Stroke Does the patient have a stroke diagnosis?: No VTE Prior VTE?: No VTE Risk Level:: Medical - moderate - high VTE Device Contraindication: Treatment Not Indicated VTE Drug Contraindication: N/A - Med Ordered
[2022-05-12 11:44] VITALS: BP 142/87; PULSE 95; RESP 20; TEMP 36.2; O2SAT 98
--- NOTE | 2022-05-12 11:45 | PM.PNNEP ---
Subjective Subjective Date of Service: 05/12/22 Interval history: still c/o headaches, BP is better; Seen AM. All recent data review Physical Exam Vital Signs: Vital Signs: Last Vital Signs Temp 97.6 F 05/12/22 08:00 Pulse 84 05/12/22 08:00 Resp 20 05/12/22 08:00 BP 150/92 H 05/12/22 08:00 Pulse Ox 100 05/12/22 08:00 O2 Del Method 05/12/22 08:00 O2 Flow Rate 2 05/11/22 12:00 BMI result Body Mass Index 28.1 Const: General: no acute distress Orientation/consciousness: patient oriented x3 Neck: Neck: Yes supple Resp: Auscultation: diminished lung sounds Cardio: Rate: regular rate GI: Palpation (GI): Soft to palpation Neuro: General: patient oriented x3 and moves all extremities Objective Data Labs 05/11/22 08:20 05/11/22 08:20 Labs: Laboratory Results - last 24 hr 05/11/22 20:03 POC Glucose 243 H Microbiology Microbiology Results: Microbiology 05/10/22 16:30 Blood - Venous Blood Culture - Preliminary No growth after 24 hours. 05/10/22 16:30 Blood - Venous Blood Culture - Preliminary No growth after 24 hours. Procedures Date of Service Date of Service: 05/12/22 Assessment & Plan Assessment and plan (1) MYNOR (acute kidney injury): Status: Acute Assessment and Plan: Has mild MYNOR due to compromise in renal perfusion Has advanced CKD at baseline; BP control needs to be optimal Currently getting diuresis; Suggest to change Amlodipine to Imdur and add low dose CoReg Continue current dose of hydralazine. C/W rest of current management NO indication for renal replacement. Labs AM. Shall closely F/U Progress Note: Quality Stroke Does the patient have a stroke diagnosis?: No
[2022-05-12] MEDS: guaiFEN/Codeine SF 200/20/10ML 10 ML LIQUID PO ×2 (15:21→22:54)
[2022-05-12 15:30] VITALS: BP 168/110; PULSE 107; RESP 21; TEMP 36.2; O2SAT 93
[2022-05-12 20:00] VITALS: BP 170/118; PULSE 100; RESP 21; TEMP 36.7; O2SAT 100
[2022-05-13] VITALS (7 sets, daily range): BP systolic 145–187; BP diastolic 59–104; PULSE 76–98; RESP 18–20; TEMP 36.1–37.1; O2SAT 93–99; BMI 26.5
[2022-05-13] MEDS: HYDROmorphone HCl 0.5 MG/0.5 ML SYRINGE IVPUSH ×3 (03:12→16:42)
--- NOTE | 2022-05-13 03:28 | PC.NURSE ---
PTs BPs have been high all night, 170/118, 187/104, 178/102. This RN let Dr. Sewell know after each. He said to monitor after the first two. After the third BP he ordered labetolol.
[2022-05-13] MEDS: Labetalol HCL 100 MG/20 ML VIAL 10 MG IVPUSH (03:59)
--- NOTE | 2022-05-13 08:58 | P.PNNP_ITS ---
Subjective Subjective Date of Service: 05/13/22 Interval history: BP is better; Seen AM. All recent data reviewed Physical Exam Vital Signs: Vital Signs: Last Vital Signs Temp 97.5 F 05/13/22 07:25 Pulse 90 05/13/22 07:25 Resp 19 05/13/22 07:25 BP 155/91 H 05/13/22 07:25 Pulse Ox 98 05/13/22 07:25 O2 Del Method 05/13/22 07:25 O2 Flow Rate 2 05/11/22 12:00 BMI result Body Mass Index 26.5 Const: General: no acute distress Orientation/consciousness: patient o riented x3 Neck: Neck: Yes supple Resp: Auscultation: diminished lung sounds Cardio: Rate: regular rate GI: Palpation (GI): Soft to palpation Neuro: General: patient oriented x3 and moves all extremities Objective Data Labs 05/11/22 08:20 05/11/22 08:20 Microbiology Microbiology Results: Microbiology 05/10/22 16:30 Blood - Venous Blood Culture - Preliminary No growth after 48 hours. 05/10/22 16:30 Blood - Venous Blood Culture - Preliminary No growth after 48 hours. Procedures Date of Service Date of Service: 05/13/22 Assessment & Plan Assessment and plan (1) MYNOR (acute kidney injury): Status: Acute Assessment and Plan: Has mild MYNOR due to compromise in renal perfusion Has advanced CKD at baseline; BP control needs to be optimal Currently getting diuresis;?Suggest to change Amlodipine to Imdur and add low dose CoReg Continue current dose of hydralazine. C/W rest of current management NO indication for renal replacement. Labs AM. Shall arrange F/U if D/Mauro Progress Note: Quality Stroke Does the patient have a stroke diagnosis?: No
[2022-05-13] MEDS: Furosemide 40 MG/4 ML VIAL IVPUSH ×2 (09:46→21:31)
[2022-05-13] MEDS: hydrALAZINE HCl 25 MG TABLET PO ×2 (09:46→16:43)
[2022-05-13] MEDS: amLODIPine Besylate 10 MG TABLET PO (09:46)
[2022-05-13] MEDS: 0.9 % Sodium Chloride Flush 3 ML SYRINGE IVFLUSH ×2 (09:46→17:28)
[2022-05-13] MEDS: Lidocaine 4 % Patch ADH..PATCH 1 PATCH TRANSDERMA (09:52)
[2022-05-13] MEDS: guaiFEN/Codeine SF 200/20/10ML 10 ML LIQUID PO (09:54)
[2022-05-13] MEDS: Isosorbide Mononitrate 30 MG TAB.ER.24H 15 MG PO (10:13)
[2022-05-13] MEDS: carvediloL 3.125 MG TABLET PO ×2 (10:13→21:26)
--- NOTE | 2022-05-13 12:32 | HO.PM.IMPN ---
Subjective Subjective Date of Service: 05/13/22 Physical Exam Vital Signs: Vital Signs: Last Vital Signs Temp 97.5 F 05/13/22 12:00 Pulse 89 05/13/22 12:00 Resp 19 05/13/22 12:00 BP 162/92 H 05/13/22 12:00 Pulse Ox 99 05/13/22 12:00 O2 Del Method 05/13/22 12:00 O2 Flow Rate 2 05/11/22 12:00 BMI result Body Mass Index 26.5 Objective Data Active Medications Acetaminophen (Acetaminophen 325 Mg Tablet) 650 mg PO Q6H PRN PRN Reason: Pain, Mild (Pain Scale 1-3) Last Admin: 05/12/22 01:22 Dose: 650 mg Documented By: NAY-FARNE Benzonatate (Benzonatate 100 Mg Capsule) 100 mg PO TID [facility] Last Admin: 05/13/22 09:46 Dose: Not Given Documented By: LARRY Non-Admin Reason: Patient Refused Carvedilol (Carvedilol 3.125 Mg Tablet) 3.125 mg PO BID [facility]; Protocol Last Admin: 05/13/22 10:13 Dose: 3.125 mg Documented By: LARRY Cyclobenzaprine HCl (Cyclobenzaprine Hcl 10 Mg Tablet) 10 mg PO TID PRN PRN Reason: muscle spasm Furosemide (Furosemide 40 Mg/4 Ml Vial) 40 mg IVPUSH BID [facility]; Protocol Last Admin: 05/13/22 09:46 Dose: 40 mg Documented By: LARRY Guaifenesin/Codeine Phosphate (Guaifen/Codeine Sf 200/20/10ml 10 Ml Liquid) 10 ml PO Q4H PRN PRN Reason: Cough Last Admin: 05/13/22 09:54 Dose: 10 ml Documented By: LARRY Heparin Sodium (Porcine) (Heparin Sodium,Porcine 5,000 Unit/Ml Vial) 5,000 unit SUBCUT Q12H [facility] Last Admin: 05/13/22 06:42 Dose: Not Given Documented By: KEV Non-Admin Reason: Patient Refused Hydralazine HCl (Hydralazine Hcl 25 Mg Tablet) 25 mg PO TID [facility]; Protocol Last Admin: 05/13/22 09:46 Dose: 25 mg Documented By: LARRY Hydromorphone HCl (Hydromorphone Hcl 2 Mg Tablet) 2 mg PO Q6H PRN PRN Reason: Pain, Severe (Pain Scale 7-10) Last Admin: 05/12/22 08:07 Dose: 2 mg Documented By: SEAN Hydromorphone HCl (Hydromorphone Hcl 0.5 Mg/0.5 Ml Syringe) 0.5 mg IVPUSH Q4H PRN; Protocol PRN Reason: Pain, Severe (Pain Scale 7-10) Last Admin: 05/13/22 09:47 Dose: 0.5 mg Documented By: LARRY Insulin Glargine (Insulin Glargine,Hum.Rec.Anlog 100 Unit/Ml 10 Ml Vial) 4 unit SUBCUT BEDTIME [facility] Last Admin: 05/12/22 22:49 Dose: Not Given Documented By: KEV Non-Admin Reason: Patient Refused Isosorbide Mononitrate (Isosorbide Mononitrate 30 Mg Tab.Er.24h) 15 mg PO DAILY [facility]; Protocol Last Admin: 05/13/22 10:13 Dose: 15 mg Documented By: LARRY Lidocaine (Lidocaine 4 % Patch Adh..Patch) 1 patch TRANSDERMA DAILY [facility] Last Admin: 05/13/22 09:52 Dose: 1 patch Documented By: LARRY Omeprazole (Omeprazole 20 Mg Capsule.Dr) 20 mg PO DAILY@0630 [facility] Last Admin: 05/13/22 06:42 Dose: Not Given Documented By: KEV Non-Admin Reason: Patient Refused Ondansetron HCl (Ondansetron Hcl 4 Mg/2 Ml Vial) 4 mg IVPUSH Q8H PRN PRN Reason: Nausea and Vomiting Pharmacy Consult (Consult Rx Perform Med Rec) 1 each MISCELLANE ONCE PRN PRN Reason: Consult order Sodium Chloride (0.9 % Sodium Chloride Flush 3 Ml Syringe) 3 ml IVFLUSH QSHIFT [facility] Last Admin: 05/13/22 09:46 Dose: 3 ml Documented By: LARRY Labs 05/11/22 08:20 05/11/22 08:20 Microbiology Microbiology Results: Microbiology 05/10/22 16:30 Blood Culture - Preliminary Blood - Venous No growth after 48 hours. 05/10/22 16:30 Blood Culture - Preliminary Blood - Venous No growth after 48 hours. Assessment and Plan (1) Chest pain: Status: Acute (2) CHF (congestive heart failure): Status: Acute Plan 31 year old female with history of htn, insulin-dependent type 2 diabetes, HFrEF, CKD stage 4, mild intermittent asthma, chronic hypoxemic respiratory failure on 2 L supplemental O2 at baseline, diabetic retinopathy legally blind in right eye, hypertension, depression and anxiety, PAD s/p transmetatarsal amputation of foot and history of right foot osteomyelitis admitted for CHF exacerbation. #Acute CHF exacerbation -last echo 12/2020 showing mildly reduced LV systolic function with EF between 45-50% with impaired relaxation filling pattern and wall motion abnormality suggestive of CAD, mildly increased right ventricular size, mild MR, mildly to moderately elevated RV systolic pressure, BNP of 2500, CXR showing central pulmonary congestion -change to PO Lasix -cardiac diet - I&O, daily weights -get echocardiogram -appears to have previously been taking beta-mohamud but unsure of compliance.? Hold off on reinitiating carvedilol until evaluated by Cardiology -Follow bmp and bnp #?? URI -cough could be secondary to CHF exacerbation, however also has sore throat -negative for COVID-19 and influenza.? Full respiratory panel pending -Robitussin AC and Tessalon Laverne # controlled insulin-dependent type 2 diabetes -last hemoglobin A1c 6.0% -dose adjusted basal insulin -Humalog on sliding scale -POC glucose -diabetic diet # hypertension-poorly controlled, probably non compliant at home, BP is much better here -given IV labetalol and nitro paste in ED -continue Nifedipine, stop Norvasc, start Coreg and Imdur per nephro. and hydralazine -c # chronic hypoxemic respiratory failure -no acute exacerbation -continue 2 L supplemental O2 # CKD stage 4 -renal function baseline -follow BMP #Headache, acute on chronic and takes dilaudid for it -Dilaudid iv, if persistis then ct of head DVT prophylaxis-heparin Full code Need for inpatient: acute heart failure, acute heart failure needing diuretics Time Spent With Patient Time: Total time managing care of this patient today ____ minutes. Quality Stroke Does the patient have a stroke diagnosis?: No VTE Prior VTE?: No VTE Risk Level:: Medical - moderate - high VTE Device Contraindication: Treatment Not Indicated VTE Drug Contraindication: N/A - Med Ordered
[2022-05-13] MEDS: ondansetron HCL 4 MG/2 ML VIAL IVPUSH (14:33)
--- NOTE | 2022-05-13 16:04 | PM.PNCARD ---
Subjective Subjective Date of Service: 05/13/22 Interval history: Seen and examined at bedside. Complaining of nausea and vomiting. Complaining of left-sided headache. She was given some Zofran with improvement in nausea. Physical Exam Vital Signs: Last Vital Signs Temp 98.1 F 05/13/22 15:59 Pulse 76 05/13/22 15:59 Resp 18 05/13/22 15:59 BP 158/60 H 05/13/22 15:59 Pulse Ox 99 05/13/22 15:59 O2 Del Method 05/13/22 15:59 O2 Flow Rate 2 05/11/22 12:00 BMI result Body Mass Index 26.5 GENERAL APPEARANCE: Nauseous and vomiting. Complaining of left-sided headache. NECK: no carotid bruit, no significant jugular venous distention. SKIN: no suspicious lesions, warm and dry. HEART: no murmurs, regular rate and rhythm. LUNGS: clear to auscultation bilaterally. ABDOMEN: soft, nontender. EXTREMITIES: no edema. PERIPHERAL PULSES: equal. NEUROLOGIC: No gross deficits, AAO X 3 Objective Labs and Meds 05/11/22 08:20 05/11/22 08:20 Progress Note: A&P Assessment and plan (1) CHF (congestive heart failure): Status: Acute (2) Hypertension: Status: Acute Plan 31-year-old female with [id number] reduced ejection fraction and congestive heart failure in the setting of elevated blood pressures. She has advanced CKD and has been following with Nephrology. Clinically she appears to be euvolemic at this point. Blood pressure medications are being adjusted by Nephrology. She has vomiting and nausea and etiology is unclear to me. I have discussed this with with the medicine team. She also is complaining of left-sided headache. From cardiovascular point of view she is stable. Her etiology for cardiomyopathy is likely related to elevated blood pressures. She can follow up with us as outpatient. Signing off for now. Time Spent With Patient Time: Total time managing care of this patient today ____ minutes. Progress Note: Quality Stroke Does the patient have a stroke diagnosis?: No Procedures Date of Service Date of Service: 05/13/22
[2022-05-14] MEDS: HYDROmorphone HCl 0.5 MG/0.5 ML SYRINGE IVPUSH ×3 (02:43→10:58)
[2022-05-14] MEDS: 0.9 % Sodium Chloride Flush 3 ML SYRINGE IVFLUSH ×2 (02:43→08:45)
[2022-05-14 04:00] VITALS: BP 179/88; PULSE 100; RESP 20; TEMP 36.1; O2SAT 94
[2022-05-14 06:00] VITALS: BMI 25.4
[2022-05-14] MEDS: guaiFEN/Codeine SF 200/20/10ML 10 ML LIQUID PO (06:35)
[2022-05-14 07:36] VITALS: BP 168/87; PULSE 98; RESP 20; TEMP 36.1; O2SAT 95
[2022-05-14] MEDS: Lidocaine 4 % Patch ADH..PATCH 1 PATCH TRANSDERMA (08:41)
[2022-05-14] MEDS: Isosorbide Mononitrate 30 MG TAB.ER.24H 15 MG PO ×2 (08:42→09:37)
[2022-05-14] MEDS: Furosemide 40 MG/4 ML VIAL IVPUSH (08:42)
[2022-05-14] MEDS: ondansetron HCL 4 MG/2 ML VIAL IVPUSH (08:42)
[2022-05-14] MEDS: hydrALAZINE HCl 25 MG TABLET PO (08:42)
[2022-05-14] MEDS: carvediloL 3.125 MG TABLET PO ×2 (08:43→09:38)
--- NOTE | 2022-05-14 08:43 | PM.PNNEP ---
Subjective Subjective Date of Service: 05/14/22 Interval history: Events noted; All recent data reviewed; D/W Med Attending Physical Exam Vital Signs: Vital Signs: Last Vital Signs Temp 97.0 F 05/14/22 07:36 Pulse 98 05/14/22 07:36 Resp 20 05/14/22 07:36 BP 168/87 H 05/14/22 07:36 Pulse Ox 95 05/14/22 07:36 O2 Del Method 05/14/22 07:36 O2 Flow Rate 2 05/11/22 12:00 BMI result Body Mass Index 25.4 Const: General: no acute distress Orientation/consciousness: patient oriented x3 Neck: Neck: Yes supple Resp: Auscultation: diminished lung sounds Cardio: Rate: regular rate GI: Palpation (GI): Soft to palpation Neuro: General: patient oriented x3 Objective Data Labs 05/11/22 08:20 05/11/22 08:20 Microbiology Microbiology Results: Microbiology 05/10/22 16:30 Blood - Venous Blood Culture - Preliminary No growth after 48 hours. 05/10/22 16:30 Blood - Venous Blood Culture - Preliminary No growth after 48 hours. Procedures Date of Service Date of Service: 05/14/22 Assessment & Plan Assessment and plan (1) MYNOR (acute kidney injury): Status: Acute Assessment and Plan: Has mild MYNOR due to compromise in renal perfusion Has advanced CKD at baseline; BP control needs to be optimal Currently getting diuresis;?D/Mauro Amlodipine; Started Imdur and added low dose CoReg Increased hydralazine. C/W rest of current management NO indication for renal replacement. Labs AM. Shall arrange F/U if D/Mauro Progress Note: Quality Stroke Does the patient have a stroke diagnosis?: No
--- NOTE | 2022-05-14 08:53 | P.DS_ITS ---
DS: Providers Provider Date of Service: 05/14/22 Date of admission: 05/10/22 19:03 Primary care physician: Abdon Beard MD Consults: 05/10/22 19:08 Consult to Cardiology Routine Consulting Provider: [facility] Reason for consultation: chf exac, cardiomyopathy Has provider been notified: Yes 05/11/22 07:38 Consult to Nephrology Routine Consulting Provider: [facility] Reason for consultation: CKD, uncontrolled HTN Has provider been notified: No DS: Diagnosis Discharge Diagnosis (1) MYNOR (acute kidney injury): Status: Acute DS: Summary Hospital Course Hospital Course: Chief Complaint: sob, cough 31 year old female with history of htn, insulin-dependent type 2 diabetes, HFrEF, CKD stage 4, mild intermittent asthma, chronic hypoxemic respiratory angelika lure on 2 L supplemental O2 at baseline, diabetic retinopathy legally blind in right eye, hypertension, depression and anxiety, PAD s/p transmetatarsal amputation of foot and history of right foot osteomyelitis presented to the ED earlier today for evaluation of cough, shortness of breath, pleuritic chest pain ongoing for 2 days.? She states she feels there is ?fluid in my lungs? and she does endorse at orthopnea and bilateral lower extremity edema.? There has also been sneezing and sore throat.? She denies any fevers, chills, dysphagia, abdominal pain, diarrhea, constipation, lightheadedness, palpitations, or chest pressure.? She states since she has been in the ED, she has vomited twice secondary to cough and does feel nauseated.? On arrival, patient tachycardic to 105, afebrile, hypertensive to 197/121.? No acute hypoxia.? Blood pressure did elevate 2205/124 and patient was given 10 mg IV labetalol and nitro paste with improvement to 187/114.? There is no leukocytosis.? Stable normocytic anemia with H/H 8.3/25.7%.? Creatinine 3.11, consistent with baseline.? BUN 41.? Electrolyte levels unremarkable, glucose 153.? Troponin within normal limits.? BNP 2870, baseline around 1500.? Negative for COVID-19, influenza.? Chest x-ray showing central vascular engorgement with mild interstitial thickening raising possibility of pulmonary edema or correlate clinically for atypical/viral i nfections.? EKG showing sinus tachycardia, rate 104, no ST or ST depressions. Hospital course: #Acute CHF exacerbation (HFrEF) likely precipitated by uncontrolled HTN.. She was treated with IV Lasix and controlling her blood pressure. Symptoms improved. Will continue Torsemide upon discharge. Blood pressure medicaiton have been adjsuted with increasing Hydralazine to 50 mg twice daily, Imdur 6.5 mg twice daily (new),m Imdur 30 mg daily (new) . Norvasc and Nifedipine stopped d/t fluid retention. Medication compliance discussed. #Uncontrolled HTN--Blood pressures were very high when she presented but is much better now. I supspect that non compliance is an issue.. Medication have been adjusted as above. Nephrology and cardiology helped with management # controlled insulin-dependent type 2 diabetes -last hemoglobin A1c 6.0% restart home regimen # chronic hypoxemic respiratory failure--presently not hypoxic on room air # CKD stage 4 -renal function baseline -follow BMP #Headache, acute on chronic and takes dilaudid for it -Dilaudid iv, if persistis then ct of head Time Spent with Patient Time attestation: Total time managing care of this patient today ____ minutes. Discharge coordination time: Greater than 30 minutes Quality: Safe Use of Opioids Does Pt have an Active Cancer Diagnosis on the Problem List?: No Quality: Stroke Does the patient have a stroke diagnosis?: No Physical Exam Vital Signs: Vital Signs: Last Vital Signs Temp 97.0 F 05/14/22 07:36 Pulse 98 05/14/22 07:36 Resp 20 05/14/22 07:36 BP 168/87 H 05/14/22 07:36 Pulse Ox 95 05/14/22 07:36 O2 Del Method 05/14/22 07:36 O2 Flow Rate 2 05/11/22 12:00 BMI result Body Mass Index 25.4 DS: Data Data Completed and Pending Labs on day of discharge: Preliminary micro results at discharge 05/10/22 16:30 Blood Culture - Preliminary Blood - Venous No growth after 48 hours. 05/10/22 16:30 Blood Culture - Preliminary Blood - Venous No growth after 48 hours. Discharge Plan Discharge Anticipated Discharge Date/Time: 05/13/22 09:45 Patient Disposition: Home, Self-Care Discharge Diagnosis: Heart failur, uncontrolled HTN Referrals: Abdon Beard MD [Primary Care Provider] - 1 Week Discharge Medications: New carvedilol 3.125 mg Tablet 6.5 mg PO BID Qty: 60 0RF Protocol: Hold for SBP/HR < HOLD for SBP < : 90 HOLD for HR < : 60 isosorbide mononitrate 30 mg tablet extended release 24 hr 30 mg PO DAILY Qty: 30 0RF hydralazine 25 mg Tablet 50 mg PO BID Qty: 60 0RF Protocol: Hold for SBP< HOLD for SBP < : 90 Continued acetaminophen 325 mg tablet 650 mg PO Q4H PRN (Reason: Pain) torsemide 20 mg tablet 1 tab PO DAILY aspirin 81 mg tablet,delayed release (DR/EC) 2 tab PO DAILY pantoprazole 40 mg tablet,delayed release (DR/EC) 1 tab PO DAILY@0630 diclofenac sodium 1 % gel 1 applic topical QID cyclobenzaprine 10 mg tablet 10 mg PO TID PRN (Reason: muscle spasm) Qty: 14 0RF lidocaine 5 % adhesive patch,medicated 1 patch topical DAILY Qty: 15 0RF Rx Instructions: leave on most painful area for up to 12 hrs insulin aspart U-100 [Novolog FlexPen U-100 Insulin] 100 unit/mL (3 mL) insulin pen 2 - 10 unit subcut TID Levemir FlexTouch U-100 Insuln 100 unit/mL (3 mL) insulin pen 8 unit subcut BEDTIME Discontinued nifedipine 30 mg tablet extended release 24hr 1 tab PO DAILY hydralazine 10 mg Tablet 10 mg PO BID Qty: 60 0RF Protocol: Hold for SBP< HOLD for SBP < : 90 amlodipine 10 mg Tablet 10 mg PO DAILY Qty: 30 0RF Protocol: Hold for SBP< HOLD for SBP < : 90 Discharge Orders: Discharge Order (Routine); Ordered 05/14/22 Ordered By: Contreras Blanton Diet: Advance to usual diet Activity on Discharge: As tolerated Stand Alone Forms: Patient Portal Discharge page Care Plan Goals: full recovery Health Concerns: heart failure kidney failure Plan of Treatment: Take all your medicatins as before and follow up with your Doctor janusz deluca Follow up with your kidney doctor in a week Stop taking Norvasc and Nifedipine Hydralazine dose has been increased to 50 twice daily Imdur 30 mg daily (new) Take Coreg (Carvdilol) 6.5 mg twice daily--(new) Assessment: armando cosby
--- NOTE | 2022-05-14 09:22 | MHC.CM.PN ---
pt dcd home with resumption of spiritual care coordinator services
[2022-05-14 11:26] VITALS: BP 158/80; PULSE 95; TEMP 36.4; O2SAT 97
== END 2022-05-14 16:05 | disposition home or self-care (01) | DRG 291 ==
LOC: HO.ED 17:47 → HO.EDOVER 19:30 → HO.IMC 20:34
PROVIDERS: Physician Assistant; Admitting Provider Physician Assistant; Emergency Provider Emergency Medicine; PCP Internal Medicine; Visit Provider Internal Medicine
DX: I13.0 Hypertensive heart and chronic kidney disease with heart failure and stage 1 through stage 4 chronic kidney disease, or unspecified chronic kidney disease (principal); I50.23 Acute on chronic systolic (congestive) heart failure; N18.4 Chronic kidney disease, stage 4 (severe); J96.11 Chronic respiratory failure with hypoxia; N17.9 Acute kidney failure, unspecified; E11.22 Type 2 diabetes mellitus with diabetic chronic kidney disease; D63.1 Anemia in chronic kidney disease; J45.20 Mild intermittent asthma, uncomplicated; I25.10 Atherosclerotic heart disease of native coronary artery without angina pectoris; I42.9 Cardiomyopathy, unspecified; E11.51 Type 2 diabetes mellitus with diabetic peripheral angiopathy without gangrene; I34.0 Nonrheumatic mitral (valve) insufficiency; R51.9 Headache, unspecified; J06.9 Acute upper respiratory infection, unspecified; D64.9 Anemia, unspecified; Z20.822 Contact with and (suspected) exposure to COVID-19; Z91.14 Patient's other noncompliance with medication regimen; Z88.5 Allergy status to narcotic agent; Z99.81 Dependence on supplemental oxygen; Z88.8 Allergy status to other drugs, medicaments and biological substances; Z79.4 Long term (current) use of insulin; Z79.82 Long term (current) use of aspirin; Z79.899 Other long term (current) drug therapy
CPT/HCPCS: 36415; 71045; 80048; 80076; 81001; 81025; 82947; 83605; 83690; 83735; 83880; 84443; 84484; 85025; 85610; 87040; 87502; 87633; 87635; 93005; 93306; 94640; 96374; 96375; 96376; 99285; J1170; J1940; J2405; J2930; Q9957

== ENCOUNTER 2022-06-06 19:46 | Inpatient (IN) | payer OTHER, SELFPAY ==
--- NOTE | 2022-06-06 | ECG_ITS ---
Test Reason : CP Blood Pressure : / mmHG Vent. Rate : 084 BPM Atrial Rate : 084 BPM P-R Int : 156 ms QRS Dur : 136 ms QT Int : 446 ms P-R-T Axes : 035 005 132 degrees QTc Int : 527 ms Normal sinus rhythm Possible Left atrial enlargement Right bundle branch block Abnormal ECG When compared with ECG of 10-MAY-2022 16:19, Nonspecific T wave abnormality now evident in Lateral leads Referred By: Generic ED Physician Electronically Signed By:HATTIE BAÑUELOS MD
--- NOTE | ~2022-06-06 | CT_ITS ---
EXAMINATION: CT FOOT WITHOUT CONTRAST, LEFT CLINICAL INFORMATION: Left foot pain. Nonhealing wound. Evaluate for deeper infection. COMPARISON: Left foot radiographs dated 06/08/2022. Left foot MRI dated 12/08/2020. TECHNIQUE: Contiguous axial CT images of the left foot were obtained without contrast. Multiplanar reformats were provided and reviewed. This CT examination was performed using dose optimization techniques as appropriate, variously including the following: *Automated exposure control *Adjustment of mA and/or kV according to patient size (this includes techniques or standardized protocols for targeted exams where dose is matched to indication/reason for exam; i.e. extremities or head) *Use of iterative reconstruction technique. DOSE: 163 mGy-cm FINDINGS: 1st metatarsal and 5th toe amputations are redemonstrated. Chronic deformity again noted at the 4th metatarsophalangeal joint, unchanged when compared to prior examinations. Severe joint space narrowing with bony remodeling and osseous erosion at the tarsometatarsal, cuneonavicular, and talonavicular joints with significant fragmentation and erosion of the navicula and cuneiforms, similar when compared to prior examinations. Findings are consistent with chronic Charcot arthropathy. Soft tissue ulceration along the plantar aspect of the midfoot with adjacent skin thickening and subcutaneous edema. No discrete organized fluid collection or abscess formation. No new adjacent osseous erosion to suggest acute osteomyelitis. Mild circumferential subcutaneous edema. Diffuse muscle atrophy. The visualized muscles and tendons are grossly intact. CT/CT foot LT wo IV con IMPRESSION: 1. Soft tissue ulceration along the plantar aspect of the midfoot with adjacent skin thickening and subcutaneous edema, consistent with cellulitis. No discrete fluid collection or abscess formation. No new adjacent osseous erosion to suggest acute osteomyelitis. 2. Chronic Charcot arthropathy at the tarsometatarsal, cuneonavicular, and talonavicular joints with significant fragmentation and erosion of the navicula and cuneiforms, similar when compared to prior examinations. 3. First metatarsal and 5th toe amputations are redemonstrated. Chronic deformity at the 4th metatarsophalangeal joint, unchanged when compared to prior examinations.
--- NOTE | ~2022-06-06 | US_ITS ---
EXAMINATION: US VENOUS ULTRASOUND WITH DOPPLER LOWER EXTREMITY, BILATERAL CLINICAL INFORMATION: Pain COMPARISON: Previous exams December 2021 and May 2008 TECHNIQUE: Ultrasound of the deep veins is performed from the hip to the calf with compression sonography and color and pulse Doppler assessment. Spectral analysis with color-flow imaging is performed. FINDINGS: RIGHT: There is normal venous compression and respiratory variation and augmented flow. The visualized common femoral vein, superficial femoral vein, profunda femoral vein, popliteal vein, and the posterior tibial veins shows no evidence of deep venous thrombosis. There is no significant popliteal fossa cyst. LEFT: There is normal venous compression and respiratory variation and augmented flow. The visualized common femoral vein, superficial femoral vein, profunda femoral vein, popliteal vein, and the posterior tibial veins shows no evidence of deep venous thrombosis. There is no significant popliteal fossa cyst. Peroneal vein is not identified bilaterally. US/US venous duplex LE BI IMPRESSION: No DVT demonstrated in the bilateral lower extremity. Peroneal veins not visualized bilaterally.
--- NOTE | ~2022-06-06 | XR_ITS ---
EXAMINATION: XR FOOT, LEFT CLINICAL INFORMATION: Chronic wound plantar surface COMPARISON: Radiographs left foot 12/06/2020, 09/07/2018 TECHNIQUE: Left foot is imaged in 3 portable views. FINDINGS: There are chronic changes in the left foot similar to prior exam exams. There is no acute bony abnormality, destructive process, or periostitis. There is no gas tracking in the soft tissues. If if clinically indicated, further evaluation for occult infection could be performed with MRI without and with contrast. Again, there has been prior amputation at proximal shaft first metatarsal and the fifth toe. There is chronic arthropathy second and third MTP joints and chronic deformity distal fourth metacarpal carpal with pseudoarthrosis fourth MTP. There is chronic arthropathy and deformity in the midfoot. Chronic pes planus. XR/XR foot LT 2V IMPRESSION: -Chronic changes similar to prior exams. No acute bony abnormality, destructive process, or gas tracking in soft tissues. -If if clinically indicated, further evaluation could be performed with MRI without and with contrast.
--- NOTE | ~2022-06-06 | US_ITS ---
EXAMINATION: US RETROPERITONEAL LIMITED (RENAL ONLY) CLINICAL INFORMATION: Worsening renal function. COMPARISON: Previous renal ultrasound December [address] of the abdomen and pelvis December 2021 TECHNIQUE: Grayscale and color imaging of the kidneys FINDINGS: RIGHT KIDNEY: 10.3 x 5.6 x 5 cm (SAG x AP x TRV). The kidney is normal in size, contour. There is question of increased renal cortical echogenicity and thickness. No calculi or focal parenchymal lesions. No hydronephrosis. LEFT KIDNEY: 11.3 x 6 x 7 cm (SAG x AP x TRV). The kidney is normal in size, and contour. There is question of increased renal cortical echogenicity. No calculi or focal parenchymal lesions. No hydronephrosis. There is a small right pleural effusion. The spleen is prominent measuring 13.4 cm in length. US/US renal BI IMPRESSION: No hydronephrosis. Question increased renal cortical echogenicity. Small right pleural effusion. Prominent spleen..
--- NOTE | ~2022-06-06 | XR_ITS ---
EXAMINATION: XR CHEST CLINICAL INFORMATION: Chest pain COMPARISON: 05/10/2022 TECHNIQUE: Frontal view of the chest was obtained. FINDINGS: No significant abnormality is noted involving the heart, lungs, mediastinum, bony thorax or soft tissues. XR/XR chest 1V IMPRESSION: Unremarkable examination.
[2022-06-06 21:05] VITALS: BP 186/118; PULSE 85; RESP 16; TEMP 36.7; O2SAT 98; BMI 30.7
--- NOTE | 2022-06-06 21:07 | PC.NURSE ---
Reported to charge nurse pt elevated blood pressure, will continue to monitor.
[2022-06-06 22:08] LABS: Hematocrit 25.7 % (37.0-47.0); Hemoglobin 7.9 g/dl (12.0-16.0); Mean Corpuscular HGB Conc 30.7 g/dl (31.0-35.0); Mean Corpuscular Volume 91.1 fL (80.0-98.0); Mean Platelet Volume 12.7 fL (9.4-12.3); NRBC Pct Auto 0.6 /100WBC (0.0-0.2); Platelet Count 204 X10*3/uL (160-400); Red Blood Count 2.82 X10*6/uL (4.20-5.50); Red Cell Distribution Width 17.6 % (11.0-16.0); White Blood Count 4.7 X10*3/uL (4.8-10.8)
[2022-06-06 22:31] LABS: Alanine Aminotransferase 25 U/L (0-31); Alkaline Phosphatase 119 U/L (39-117); Anion Gap 17 (12-20); Aspartate Amino Transferase 27 U/L (5-31); Bilirubin Total 1.1 mg/dL (0.0-1.0); Blood Urea Nitrogen 53 mg/dL (9-16); Calcium 7.6 mg/dL (8.4-10.2); Carbon Dioxide 11 mmol/L (22-29); Chloride 113 mmol/L (96-108); Creatinine Clr Calc Pharmacy 24.4; Estimated Glomerular Filt Rate 14; Glucose Random 104 mg/dL (60-115); Potassium 5.7 mmol/L (3.3-5.1); Sodium 135 mmol/L (135-145); Total Protein 6.3 g/dL (6.5-8.0)
[2022-06-06 22:35] LABS: Troponin-I High Sensitivity 11.5 ng/L (<3.5-17.0)
[2022-06-07] VITALS (7 sets, daily range): BP systolic 145–190; BP diastolic 88–120; PULSE 85–90; RESP 16–20; TEMP 36.2–36.6; O2SAT 94–96
--- OUTSIDE RECORDS SUMMARY | 2022-06-07 01:12 | XMS_ITS | Continuity of Care Document ---
Author Name Unknown Organization [facility] Address [address] [place] [id number]- Care Team Providers Care Metal Cleaner Name Role Phone Abdon Beard MD Primary Care Physician [phone] [place] [facility] [place]): [place] - [place]/24/22 [facility] [address] [place] [id number]- Attending Physician: Michael Marquez Admitting Physician: Michael Marquez Referring Physician: Michael Marquez Allergies, Adverse Reactions, Alerts Substance Reaction Severity Status vancomycin 1, 2 Tightness in throat Activ e morphine Itching Active gabapentin Itching of tongue Severe Active Zosyn 3 angioedema Severe Active traMADol Itching of tongue Severe Active 1Tolerates again 05/21 2Per chart: pt tolerated vanco on 05/18/21 3Tolerates cefazolin Immunizations Given and Recorded Vaccine Date Status Refusal Reason SARS-CoV-2 (COVID-19) mRNA-1273 vaccine 07/16/20 R ecorded SARS-CoV-2 (COVID-19) mRNA-1273 vaccine 06/18/20 R ecorded influenza virus vaccine, inactivated 09/30/16 Andrew rded influenza virus vaccine, inactivated 12/06/11 Give n tetanus/diphtheria/pertussis, acel(Tdap) 1 06/27/12 Given tetanus/diphtheria/pertussis, acel(Tdap) 06/24/12 Recorded Hepatitis B Vaccine (old term) 2 10/21/02 Given Hepatitis B Vaccine (old term) 04/18/02 Given Hepatitis B Vaccine (old term) 03/13/02 Given tetanus-diphtheria toxoids (Td) 3 03/13/02 Given Measles/Mumps/Rubella Virus Vaccine 07/15/95 Given Measles/Mumps/Rubella Virus Vaccine 03/25/89 Given Poliovirus Vaccine, Inactivated 4 08/08/92 Given Poliovirus Vaccine, Inactivated 5 01/24/92 Given Poliovirus Vaccine, Inactivated 07/05/89 Given Poliovirus Vaccine, Inactivated 88 Given Poliovirus Vaccine, Inactivated 88 Given Diphth/Pertussis, Whl Cell/Tet(oldterm) 08/08/92 G iven Diphth/Pertussis, Whl Cell/Tet(oldterm) 01/24/92 G iven Diphth/Pertussis, Whl Cell/Tet(oldterm) 07/05/89 G iven Diphth/Pertussis, Whl Cell/Tet(oldterm) 88 G iven Diphth/Pertussis, Whl Cell/Tet(oldterm) 88 G iven Not Given Vaccine Date Status Refusal Reason influenza virus vaccine, inactivated 02/27/22 Not Given Patient Refuses influenza virus vaccine, inactivated 01/18/22 Not Given Patient Refuses influenza virus vaccine, inactivated 03/05/21 Not Given Patient Refuses 1Admin Note: VIS 03/21/11 (given) 2Admin Note: hx varicella '94 3Admin Note: TD 4Admin Note: unknown exact date 5Admin Note: unknown exact date Medications acetaminophen 325 mg oral capsule 2 capsule = 650 mg, By Mouth, Every 4 hours, PRN as needed for pain, # 90 capsule, 0 Refills, Acute03/31/23 8:01:00 EST, 03/30/22 8:01:00 EST, Capsule, [facility]/pharm[facility] #[id number], Partial fill upon patient request if the prescription is for a schedule II opi... Start Date: 03/30/22 Stop Date: 03/31/23 Status: Ordered Albuterol (Eqv-ProAir HFA) 90 mcg/inh inhalation aerosol 2 puffs, Inhalation, Every 4 hours, Maintenance, 03/25/22 22:43:00 EST, Partial fill upon patient request if the prescription is for a schedule II opioid drug. Start Date: 03/25/22 Status: Ordered Aspirin Low Dose 81 mg oral delayed release tablet 1 tablet = 81 mg, By Mouth, Daily, Maintenance, 02/13/22 11:23:00 EST, CR Tablet, ; Start Date: 02/13/22 Status: Ordered Coreg 25 mg oral tablet 25 mg, 1, tablet, By Mouth, 2 times a day, # 60 tablet, Refills 0, Tot. Refills 0, Maintenance, 03/29/22 12:11:00 EST, Route to Pharmacy Electronically, [facility]/pharmacy #[id number], Partial fill upon patient request if the prescription is for a schedule II opi... Start Date: 03/29/22 Status: Ordered Crestor 5 mg oral tablet 1 tablet = 5 mg, By Mouth, Daily, # 30 tablet, 0 Refills, Maintenance, 01/19/22 13:30:00 EST, Tablet, [facility]/pharmacy #[id number], Partial fill upon patient request if the prescription is for a schedule II opioid drug., 160, cm, 01/19/22 8:55:00 EST, Height, 9... Start Date: 01/19/22 Status: Ordered diclofenac 1% topical gel = 2 Gm, Topically, 4 times a day, # 240 Gm, 0 Refills, Maintenance, 03/30/22 8:01:00 EST, Gel, [facility]/pharmacy #[id number], Partial fill upon patient request if the prescription is for a schedule II opioid drug., 168, cm, 03/29/22 10:53:00 EST, Height, 87.4, k... Start Date: 03/30/22 Status: Ordered Flonase 50 mcg/inh nasal spray 1 sprays, Nares, Both, 2 times a day, # 16 Gm, 0 Refills, Maintenance, 03/10/22 13:15:00 EST, [place], [facility], Partial fill upon patient request if the prescription is for a schedule II opioid drug., 1 sprays Nares, Both 2 times a day,... Start Date: 03/10/22 Status: Ordered hydrALAZINE 25 mg oral tablet 25 mg, 1, tablet, By Mouth, 3 times a day, Refills 0, Maintenance, 04/15/22 13:31:00 EST, Partial fill upon patient request if the prescription is for a schedule II opioid drug. Start Date: 04/15/22 Status: Ordered Levemir FlexTouch 100 units/mL subcutaneous solution = 8 units, Subcutaneous Injection, Daily in AM, # 10 mL, 0 Refills, Maintenance, 03/10/22 13:13:00 EST, Injection, [facility], Partial fill upon patient request if the prescription is for a schedule II opioid drug., 170, cm, 03/10/22 10:... Start Date: 03/10/22 Status: Ordered NIFEdipine 30 mg oral tablet, extended release 30 mg, 1, tablet, By Mouth, Daily, # 30 tablet, Refills 0, Tot. Refills 0, Maintenance, 03/10/22 13:15:00 EST, Route to Pharmacy Electronically, [facility], Partial fill upon patient request if the prescription is for a schedule II opioi... Start Date: 03/10/22 Stop Date: 04/09/22 Status: Ordered NovoLOG FlexPen 100 units/mL injectable solution 11-12 UNITS, Subcutaneous Injection, 3 times a day before meals, (NOT TAKING & HASN'T IN MONTHS), # 10 mL, 0 Refills, Maintenance, 03/10/22 13:12:00 EST, Injection, [facility], Partial fill upon patient request if the prescription is for... Start Date: 03/10/22 Status: Ordered ondansetron 4 mg oral tablet 1 tablet = 4 mg, By Mouth, Every 8 hours, PRN Nausea & Vomiting, # 12 tablet, 0 Refills, Maintenance, 03/10/22 13:16:00 EST, Tablet, [facility], Partial fill upon patient request ifthe prescription is for a schedule II opioid drug., 170... Start Date: 03/10/22 Status: Ordered pantoprazole 40 mg oral delayed release tablet 1 tablet = 40 mg, By Mouth, Daily, # 90 tablet, 0 Refills, Maintenance, 03/10/22 13:16:00 EST, EC Tablet, 170, cm, 03/10/22 10:58:00 EST, Height, 88, kg, 02/26/22 23:01:00 EST, Dry Weight Start Date: 03/10/22 Status: Ordered Pen [place], 31 G x 5 mm BD Ultra Fine III See Instructions, # 100 each, Refills 5, Tot. Refills 5, Maintenance, use as directed for Type 2 Diabetes Mellitus, 03/10/22 13:55:00 EST, Supply, 170, cm, 03/10/22 10:58:00 EST, Height, 88, kg, 02/26/22 23:01:00 EST, Dry Weight Start Date: 03/10/22 Stop Date: 09/06/22 Status: Ordered scopolamine 1 mg/72 hr transdermal film, extended release 1 film, Topically, Every 72 hours, # 4 each, 0 Refills, Maintenance, 03/10/22 13:17:00 EST, [facility], Partial fill upon patient request if the prescription is for a schedule II opioiddrug., 1 film Topically Every 72 hours, 170, cm, 01... Start Date: 03/10/22 Status: Ordered torsemide 20 mg oral tablet 1 tablet = 20 mg, By Mouth, Daily, # 30 tablet, 0 Refills, Maintenance, 03/10/22 13:14:00 EST, Tablet, [facility], Partial fill upon patient request if the prescription is for a schedule II opioid drug., 170, cm, 03/10/22 10:58:00 EST, H... Start Date: 03/10/22 Status: Ordered Problem List Condition Confirmation Course Effective Dates Status Health St atus Informant Asthma 1 Confirmed Active Blindness of right eye Confirmed Active Cardiac disease during , antepartum Confirmed Active H/O Chest pain Confirmed Active CKD (chronic kidney disease), stage III Confirmed Active CKD stage 4 due to type 2 diabetes mellitus Confirmed Active IUFD at 20 weeks or more of gestation Confirmed Active Depression 2 Confirmed Active Diabetes mellitus type 2 3 Confirmed Active growth retardation, Confirmed Active Heart failure with preserved ejection fraction, NYHA class I Confirmed Active Hypertension 4 Confirmed Active Insulin dependent type 2 diabetes mellitus Confirmed Active Migraine 5 Confirmed Active Care Coordination [facility], Hakan Angel, CC Confirmed Active 1Managed by PCP. WEll controlled. 2Self-manages. States currently stable. No medications. 3Not seem at [facility] since 08/12/2016. Multiple no show in our center. She is seen by other provider Dr Matt Gutierrez by pharmacy records. 4Managed by PCP 5Managed by PCP with Tylenol Social History Social History Type Response Smoking Status Never (less than 100 in lifetime) entered on: 08/22/21 Sex Patient Care team information Care Team Personnel Name: Elizabeth Cabezas Position: [facility] RN Member Role: Primary Care Nurse Name: Anuradha Morris RN Position: S RN Member Role: Primary Care Nurse Name: Samantha Reynolds RN Position: S RN Member Role: Primary Care Nurse Name: Omega Gillespie RN Position: [facility] RN Member Role: Primary Care Nurse Name: Doreen Estrada RN Position: [facility] RN Member Role: Primary Care Nurse Name: Paty Kelly RN Position: [facility] RN Member Role: Primary Care Nurse Name: Sonia Malone Position: [facility] RN Member Role: Primary Care Nurse Name: Keira Desai RN Position: [facility] RN Member Role: Primary Care Nurse Name: Gomez Moseley RN Position: [facility] RN Supv Member Role: Primary Care Nurse Name: Vashti Bruce RN Position: [facility] RN Member Role: Primary Care Nurse Name: Raghav Grangre Position: [facility] RN Member Role: Primary Care Nurse Name: Cassy Caraballo RN Position: [facility] RN Member Role: Primary Care Nurse Name: Jodi Carrilol RN Position: [facility] RN Member Role: Primary Care Nurse Name: Abbey Shelley RN Position: [facility] RN Member Role: Primary Care Nurse Name: Larissa Barnett RN Position: [facility] RN Member Role: Primary Care Nurse Name: Inna Beckwith RN Position: [facility] RN Member Role: Primary Care Nurse Name: Cady Araya RN Position: [facility] RN Member Role: Primary Care Nurse Name: Abdon Beard MD Position: [facility] Outreach Member Role: PCP Address: Address: [address] [place] [id number]- Name: Anuradha Frank Position: [facility] RN Member Role: Primary Care Nurse Name: Michele lBancas DO Position: [facility] Renal MD Member Role: Lifetime Consulting Physician Address: Address: [address] [place] [address] [address] [facility] [place] [address]- [place] Name: María Acosta RN Position: [facility] RN Member Role: Primary Care Nurse Name: Treasure Gilbert RN Position: [facility] RN Supv Member Role: Primary Care Nurse Name: Farzana Sevilla Position: [facility] RN Member Role: Primary Care Nurse Name: Javan Pimentel MD Position: [facility] Renal MD Member Role: Lifetime Consulting Physician Address: Address: [address] [facility] [place] [address]- [place] Name: Heather Pal RN Position: [facility] RN Member Role: Primary Care Nurse Name: Jody Rasmussen RN Position: [facility] RN Member Role: Primary Care Nurse Name: Luisa Devine RN Position: [facility] RN Member Role: Primary Care Nurse Name: Mau Hazel RN Position: [facility] RN Member Role: Primary Care Nurse Name: Pedro Taylor RN Position: S RN Member Role: Primary Care Nurse Name: Charlotte Singletary RN Position: [facility] OB RN Member Role: Primary Care Nurse Name: Alison Jose RN Position: [facility] RN Member Role: Primary Care Nurse Name: Kendall Coleman RN Position: [facility] RN Member Role: Primary Care Nurse Name: Nancy Fair RN Position: [facility] SN RN Member Role: Primary Care Nurse Name: Sofie Reed Position: [facility] RN Member Role: Primary Care Nurse Name: Kasia Vital RN Position: [facility] RN Member Role: Primary Care Nurse Name: Fernando Siddiqi MD Position: [facility] Renal MD Member Role: Lifetime Consulting Physician Address: Address: [address] [place] [address] [facility] [place] [place] [address]- Name: Kaelyn Lewis RN Position: [facility] RN Member Role: Primary Care Nurse Name: Lianne Byrnes RN Position: [facility] RN Member Role: Primary Care Nurse Name: Tona Jacome LPN Position: S RN Member Role: Primary Care Nurse Name: Tatiana Madrigal RN Position: [facility] RN Member Role: Primary Care Nurse Name: Jose Callejas RN Position: [facility] RN Member Role: Primary Care Nurse Name: Ashely Riley RN Position: [facility] RN Member Role: Primary Care Nurse Care Team Related Persons Name: LEONOR MCFARLAND Address: [address] [place] [address] Name: REJI TAYLOR Address: [address] [place] [address] Name: JEFF CHAPMAN Address: [id number] Address: home [address] [address] [place] Name: ELI BONILLA Address: home [address] [address]
--- OUTSIDE RECORDS SUMMARY | 2022-06-07 01:12 | XMS_ITS | Continuity of Care Document ---
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 Name Role Phone Abdon Beard MD Primary Care Physician Encounter [facility] Date(s): 04/17/22 - 05/17/22 [facility] [address] [place] [address]- Attending Physician: Michael Marquez Admitting Physician: Michael Marquez Referring Physician: Admtr [id number] Allergies, Adverse Reactions, Alerts Substance Reaction [...] Acute03/31/23 8:01:00 EST, 03/30/22 8:01:00 EST, Capsule, [facility]/pharmacy #[id number], Partial fill upon patient request if the [...] 03/29/22 12:11:00 EST, [id number] Partial fill upon patient request if the prescription is for a schedule II opi... Start Date: 03/29/22 Status: Ordered Crestor 5 mg oral tablet 1 tablet = 5 mg, By Mouth, Daily, # 30 tablet, 0 Refills, Maintenance, 01/19/22 13:30:00 EST, [id number] Partial fill upon patient request if the prescription is for a schedule II opioid drug., 160, cm, 01/19/22 8:55:00 EST, Height, 9... Start Date: 01/19/22 Status: Ordered diclofenac 1% topical gel = 2 Gm, Topically, 4 times a day, # 240 Gm, 0 Refills, Maintenance, 03/30/22 8:01:00 EST, Gel, [facility]/pharmacy #[id number], Partial fill upon patient request if the prescription is for a schedule II opioid drug., 168, cm, 03/29/22 10:53:00 EST, Height, 87.4, k... Start Date: 03/30/22 Status: Ordered Flonase 50 mcg/inh nasal spray 1 sprays, Nares, Both, 2 times a day, # 16 Gm, 0 Refills, Maintenance, 03/10/22 13:15:00 EST, [place], [facility], Partial fill upon patient [...] 0 Refills, Maintenance, 03/10/22 13:13:00 EST, Injection, [facility], Partial fill upon patient request if the prescription is for a schedule II opioid drug., 170, cm, 03/10/22 10:... Start Date: 03/10/22 Status: Ordered NIFEdipine 30 mg oral tablet, extended release 30 mg, 1, tablet, By Mouth, Daily, # 30 tablet, Refills 0, Tot. Refills 0, Maintenance, 03/10/22 13:15:00 EST, Route to Pharmacy Electronically, [facility], Partial fill upon patient request if the prescription is for a schedule II opioi... Start Date: 03/10/22 Stop Date: 04/09/22 Status: Ordered NovoLOG FlexPen 100 units/mL injectable solution 11-12 UNITS, Subcutaneous Injection, 3 times a day before meals, (NOT TAKING & HASN'T IN MONTHS), # 10 mL, 0 Refills, Maintenance, 03/10/22 13:12:00 EST, Injection, [facility], Partial fill upon patient request if the prescription is for... Start Date: 03/10/22 Status: Ordered ondansetron 4 mg oral tablet 1 tablet = 4 mg, By Mouth, Every 8 hours, PRN Nausea & Vomiting, # 12 tablet, 0 Refills, Maintenance, 03/10/22 13:16:00 EST, Tablet, [facility], Partial fill upon patient request ifthe [...] Weight Start Date: 03/10/22 Status: Ordered Pen [place], 31 G x 5 mm BD Ultra [...] each, 0 Refills, Maintenance, 03/10/22 13:17:00 EST, [facility], Partial fill upon patient request if the prescription is for a schedule II opioiddrug., 1 film Topically Every 72 hours, 170, cm, 01... Start Date: 03/10/22 Status: Ordered torsemide 20 mg oral tablet 1 tablet = 20 mg, By Mouth, Daily, # 30 tablet, 0 Refills, Maintenance, 03/10/22 13:14:00 EST, Tablet, [facility], Partial fill upon patient [...] Active Migraine 5 Confirmed Active Care Coordination N-LISA, Hakan Angel, CC Confirmed Active 1Managed by [...] Care team information Care Team Personnel Name: Raulito Elizabeth Position: S RN Member Role: Primary Care Nurse Name: Anuradha Morris RN Position: S RN Member Role: Primary Care Nurse Name: Samantha Reynolds RN Position: [facility] RN Member Role: Primary Care Nurse Name: Omega Gillespie RN Position: [facility] RN Member Role: Primary Care Nurse Name: Doreen Estrada RN Position: [facility] RN Member Role: Primary Care Nurse Name: Paty Kelly RN Position: [facility] RN Member Role: Primary Care Nurse Name: Sonia Malone Position: [facility] RN Member Role: Primary Care Nurse Name: Keira Desai RN Position: [facility] RN Member Role: Primary Care Nurse Name: Gomez Moseley RN Position: [facility] RN Supv Member Role: Primary Care Nurse Name: Vashti Bruce RN Position: [facility] RN Member Role: Primary Care Nurse Name: Raghav Granger Position: [facility] RN Member Role: Primary Care Nurse Name: Cassy Caraballo RN Position: [facility] RN Member Role: Primary Care Nurse Name: Jodi Carrillo RN Position: [facility] RN Member Role: Primary Care Nurse Name: Abbey Shelley RN Position: [facility] RN Member Role: Primary Care Nurse Name: Larissa Barnett RN Position: [facility] RN Member Role: Primary Care Nurse Name: Inna Beckwith RN Position: [facility] RN Member Role: Primary Care Nurse Name: Cady Araya RN Position: [facility] RN Member Role: Primary Care Nurse Name: Abdon Beard MD Position: [facility] Outreach Member Role: PCP Address: Address: [address] [place] [address]- Name: Anuradha Frank Position: [facility] RN Member Role: Primary Care Nurse Name: Michele Blancas DO Position: [facility] Renal MD Member Role: Lifetime Consulting Physician Address: Address: [address] [facility] [address] [facility] [place] [address]- [place] Name: María Acosta RN Position: [facility] RN Member Role: Primary Care Nurse Name: Treasure Gilbert RN Position: [facility] RN Supv Member Role: Primary Care Nurse Name: Farzana Sevilla Position: [facility] RN Member Role: Primary Care Nurse Name: Javan Pimentel MD Position: [facility] Renal MD Member Role: Lifetime Consulting Physician Address: Address: [address] [facility] [address] [facility] [address] [facility] [place] [address]- [place] Name: Heather Pal RN Position: S RN Member Role: Primary Care Nurse Name: Jody Rasmussen RN Position: [facility] RN Member Role: Primary Care Nurse Name: Luisa Devine RN Position: S RN Member Role: Primary Care Nurse Name: Mau Hazel RN Position: S RN Member Role: Primary Care Nurse Name: Pedro Taylor RN Position: S RN Member Role: Primary Care Nurse Name: Charlotte Singletary RN Position: [facility] OB RN Member Role: Primary Care Nurse Name: Alison Jose RN Position: [facility] RN Member Role: Primary Care Nurse Name: Kendall Coleman RN Position: [facility] RN Member Role: Primary Care Nurse Name: Nancy Fair RN Position: [facility] SN RN Member Role: Primary Care Nurse Name: Sofie Reed Position: [facility] RN Member Role: Primary Care Nurse Name: Kasia Vital RN Position: [facility] RN Member Role: Primary Care Nurse Name: Fernando Siddiqi MD Position: [facility] Renal MD Member Role: Lifetime Consulting Physician Address: Address: [address] [place] [address] [facility] [place] [address]- Name: Kaelyn Lewis RN Position: [facility] RN Member Role: Primary Care Nurse Name: Lianne Byrnes RN Position: [facility] RN Member Role: Primary Care Nurse Name: Tona Jacome LPN Position: [facility] RN Member Role: Primary Care Nurse Name: Tatiana Madrigal RN Position: [facility] RN Member Role: Primary Care Nurse Name: Jose Callejas RN Position: [facility] RN Member Role: Primary Care Nurse Name: Ashely Riley RN Position: [facility] RN Member Role: Primary Care Nurse Care Team Related Persons Name: LEONOR MCFARLAND Address: home [address] [place] [address] Name: REJI TAYLOR Address: home [address] [place] [address] Name: JEFF CHAPMAN Address: [address] Address: home [address] [address] [place] Name: ELI BONILLA Address: home [address] [address]
--- OUTSIDE RECORDS SUMMARY | 2022-06-07 01:13 | XMS_ITS | Continuity of Care Document ---
Author Name Unknown Organization [facility] Address [address] [place] [id number]- Care Team Providers Care Ceo & Co Founder Name Role Phone Chirag CARLSON, Abdon Primary Care Physician Encounter [facility] Date(s): 03/09/22 - 05/17/22 [facility] [address] [place], [place] [id number]- Attending Physician: sAhvin Reed MD Admitting Physician: Ashvin Reed MD Referring Physician: Abdon Beadr MD Allergies, Adverse Reactions, Alerts Substance Reaction [...] Vaccine 03/25/89 Given Poliovirus Vaccine, Inactivated 4 6/13/93 Given Poliovirus Vaccine, Inactivated 5 01/24/92 Given [...] Acute03/31/23 8:01:00 EST, 03/30/22 8:01:00 EST, Capsule, [facility]/pharmacy #[id number], Partial fill upon patient request if the [...] 03/29/22 12:11:00 EST, Route to Pharmacy Electronically, [facility]/pharmacy #[id number], Partial fill upon patient request if the prescription is for a schedule II opi... Start Date: 03/29/22 Status: Ordered Crestor 5 mg oral tablet 1 tablet = 5 mg, By Mouth, Daily, # 30 tablet, 0 Refills, Maintenance, 01/19/22 13:30:00 EST, Tablet, [facility]/pharmacy #[id number], Partial fill upon patient request if the prescription is for a schedule II opioid drug., 160, cm, 01/19/22 8:55:00 EST, Height, 9... Start Date: 01/19/22 Status: Ordered diclofenac 1% topical gel = 2 Gm, Topically, 4 times a day, # 240 Gm, 0 Refills, Maintenance, 03/30/22 8:01:00 EST, Gel, [facility]/pharmacy #[id number], Partial fill upon patient request if the prescription is for a schedule II opioid drug., 168, cm, 03/29/22 10:53:00 EST, Height, 87.4, k... Start Date: 03/30/22 Status: Ordered Flonase 50 mcg/inh nasal spray 1 sprays, Nares, Both, 2 times a day, # 16 Gm, 0 Refills, Maintenance, 03/10/22 13:15:00 EST, [place], [facility], Partial fill upon [...] 0 Refills, Maintenance, 03/10/22 13:13:00 EST, Injection, [facility], Partial fill upon patient request if the prescription is for a schedule II opioid drug., 170, cm, 03/10/22 10:... Start Date: 03/10/22 Status: Ordered NIFEdipine 30 mg oral tablet, extended release 30 mg, 1, tablet, By Mouth, Daily, # 30 tablet, Refills 0, Tot. Refills 0, Maintenance, 03/10/22 13:15:00 EST, Route to Pharmacy Electronically, [facility], Partial fill upon patient request if the prescription is for a schedule II opioi... Start Date: 03/10/22 Stop Date: 04/09/22 Status: Ordered NovoLOG FlexPen 100 units/mL injectable solution 11-12 UNITS, Subcutaneous Injection, 3 times a day before meals, (NOT TAKING & HASN'T IN MONTHS), # 10 mL, 0 Refills, Maintenance, 03/10/22 13:12:00 EST, Injection, [facility], Partial fill upon patient request if the prescription is for... Start Date: 03/10/22 Status: Ordered ondansetron 4 mg oral tablet 1 tablet = 4 mg, By Mouth, Every 8 hours, PRN Nausea & Vomiting, # 12 tablet, 0 Refills, Maintenance, 03/10/22 13:16:00 EST, Tablet, [facility], Partial fill upon patient [...] Weight Start Date: 03/10/22 Status: Ordered Pen [place], 31 G x 5 mm BD Ultra [...] each, 0 Refills, Maintenance, 03/10/22 13:17:00 EST, [facility], Partial fill upon patient request if the prescription is for a schedule II opioiddrug., 1 film Topically Every 72 hours, 170, cm, 01... Start Date: 03/10/22 Status: Ordered torsemide 20 mg oral tablet 1 tablet = 20 mg, By Mouth, Daily, # 30 tablet, 0 Refills, Maintenance, 03/10/22 13:14:00 EST, Tablet, [facility], Partial fill upon [...] Active Migraine 5 Confirmed Active Care Coordination Cathy-LISA, Hakan Angel, CC Confirmed Active 1Managed by [...] Care Team Personnel Name: Raulito Elizabeth Position: [facility] RN Member Role: Primary Care Nurse Name: Anuradha Morris RN Position: S RN Member Role: Primary Care Nurse Name: Samantha Reynolds RN Position: S RN Member Role: Primary Care Nurse Name: Omega Gillespie RN Position: [facility] RN Member Role: Primary Care Nurse Name: Doreen Estrada RN Position: [facility] RN Member Role: Primary Care Nurse Name: Paty Kelly RN Position: [facility] RN Member Role: Primary Care Nurse Name: Sonia Malone Position: [facility] RN Member Role: Primary Care Nurse Name: Keira Desai RN Position: [facility] RN Member Role: Primary Care Nurse Name: Gomez Moseley RN Position: [facility] RN Supv Member Role: Primary Care Nurse Name: Vashti Bruce RN Position: [facility] RN Member Role: Primary Care Nurse Name: Raghav Granger Position: [facility] RN Member Role: Primary Care Nurse Name: Cassy Caraballo RN Position: [facility] RN Member Role: Primary Care Nurse Name: Jodi Carrillo RN Position: [facility] RN Member Role: Primary Care Nurse Name: Abbey Shelley RN Position: [facility] RN Member Role: Primary Care Nurse Name: Larissa Barnett RN Position: [facility] RN Member Role: Primary Care Nurse Name: Inna Beckwith RN Position: [facility] RN Member Role: Primary Care Nurse Name: Cady Araya RN Position: [facility] RN Member Role: Primary Care Nurse Name: Abdon Beard MD Position: [facility] Outreach Member Role: PCP Address: Address: [address] [place] [address]- [place] Name: Anuradha Frank Position: [facility] RN Member Role: Primary Care Nurse Name: Michele Blancas DO Position: [facility] Renal MD Member Role: Lifetime Consulting Physician Address: Address: [address] [facility] [address] [facility] [place] [address]- [place] Name: María Acosta RN Position: [facility] RN Member Role: Primary Care Nurse Name: Treasure Gilbert RN Position: [facility] RN Supv Member Role: Primary Care Nurse Name: Farzana Sevilla Position: [facility] RN Member Role: Primary Care Nurse Name: Javan Pimentel MD Position: [facility] Renal MD Member Role: Lifetime Consulting Physician Address: Address: [address] [facility] [address] [facility] [place] [address]- [place] Name: Heather Pal RN Position: [facility] RN Member Role: Primary Care Nurse Name: Jody Rasmussen RN Position: [facility] RN Member Role: Primary Care Nurse Name: Luisa Devine RN Position: [facility] RN Member Role: Primary Care Nurse Name: Mau Hazel RN Position: S RN Member Role: Primary Care Nurse Name: Pedro Taylor RN Position: S RN Member Role: Primary Care Nurse Name: Charlotte Singletary RN Position: [facility] OB RN Member Role: Primary Care Nurse Name: Alison Jose RN Position: [facility] RN Member Role: Primary Care Nurse Name: Kendall Coleman RN Position: [facility] RN Member Role: Primary Care Nurse Name: Nancy Fair RN Position: [facility] SN RN Member Role: Primary Care Nurse Name: Sofie Reed Position: [facility] RN Member Role: Primary Care Nurse Name: Kasia Vital RN Position: [facility] RN Member Role: Primary Care Nurse Name: Fernando Siddiqi MD Position: [facility] Renal MD Member Role: Lifetime Consulting Physician Address: Address: [address] [place] [address] [facility] [place] [address]- Name: Kaelyn Lewis RN Position: [facility] RN Member Role: Primary Care Nurse Name: Lianne Byrnes RN Position: [facility] RN Member Role: Primary Care Nurse Name: Tona Jacome LPN Position: [facility] RN Member Role: Primary Care Nurse Name: Tatiana Madrigal RN Position: [facility] RN Member Role: Primary Care Nurse Name: Jose Callejas RN Position: [facility] RN Member Role: Primary Care Nurse Name: Ashely Riley RN Position: [facility] RN Member Role: Primary Care Nurse Care Team Related Persons Name: LEONOR MCFARLAND Address: [address] [place] [address] Name: REJI TAYLOR Address: [address] [place] [address] Name: JEFF CHAPMAN Address: [address] Address: home [address] [address] [place] Name: ELI BONILLA Address: home [address] [address]
--- OUTSIDE RECORDS SUMMARY | 2022-06-07 01:14 | XMS_ITS | Continuity of Care Document ---
Author Name Unknown Organization [facility] ter Address [address] [place] [address]- Care Team Providers Care Tire Repairman Name Role Phone Chirag CARLSON, Abdon Primary Care Physician [place] [facility]/25/22 - 05/31/[address] [address] Attending Physician: Britton Gottlieb MD Admitting Physician: Britton Gottlieb MD Referring Physician: Letha Jenkins MD Allergies, Adverse Reactions, Alerts Substance Reaction Severity Status vancomycin 1, 2 Tightness in throat Activ e gabapentin Itching of tongue Severe Active Zosyn 3 angioedema Severe Active traMADol Itching of tongue Severe Active morphine Itching Active 1Tolerates again 05/21 2Per chart: pt [...] EST, 03/30/22 8:01:00 EST, Capsule, [facility]/pharmacy #[id number], Partial fill upon patient request if the [...] 03/29/22 12:11:00 EST, [id number] Partial fill upon patient request if the prescription is for a schedule II opi... Start Date: 03/29/22 Status: Ordered Crestor 5 mg oral tablet 1 tablet = 5 mg, By Mouth, Daily, # 30 tablet, 0 Refills, Maintenance, 01/19/22 13:30:00 EST, Tablet, [facility]/pharmacy #[id number], Partial fill upon patient request if the prescription is for a schedule II opioid drug., 160, cm, 01/19/22 8:55:00 EST, Height, 9... Start Date: 01/19/22 Status: Ordered diclofenac 1% topical gel = 2 Gm, Topically, 4 times a day, # 240 Gm, 0 Refills, Maintenance, 03/30/22 8:01:00 EST, Gel, [id number] Partial fill upon patient request if the prescription is for a schedule II opioid drug., 168, cm, 03/29/22 10:53:00 EST, Height, 87.4, k... Start Date: 03/30/22 Status: Ordered Flonase 50 mcg/inh nasal spray 1 sprays, Nares, Both, 2 times a day, # 16 Gm, 0 Refills, Maintenance, 03/10/22 13:15:00 EST, [place], [facility], Partial fill upon patient [...] 0 Refills, Maintenance, 03/10/22 13:13:00 EST, Injection, [facility], Partial fill upon patient request if the prescription is for a schedule II opioid drug., 170, cm, 03/10/22 10:... Start Date: 03/10/22 Status: Ordered NIFEdipine 30 mg oral tablet, extended release 30 mg, 1, tablet, By Mouth, Daily, # 30 tablet, Refills 0, Tot. Refills 0, Maintenance, 03/10/22 13:15:00 EST, Route to Pharmacy Electronically, [facility], Partial fill upon patient request if the prescription is for a schedule II opioi... Start Date: 03/10/22 Stop Date: 04/09/22 Status: Ordered NovoLOG FlexPen 100 units/mL injectable solution 11-12 UNITS, Subcutaneous Injection, 3 times a day before meals, (NOT TAKING & HASN'T IN MONTHS), # 10 mL, 0 Refills, Maintenance, 03/10/22 13:12:00 EST, Injection, [facility], Partial fill upon patient request if the prescription is for... Start Date: 03/10/22 Status: Ordered ondansetron 4 mg oral tablet 1 tablet = 4 mg, By Mouth, Every 8 hours, PRN Nausea & Vomiting, # 12 tablet, 0 Refills, Maintenance, 03/10/22 13:16:00 EST, Tablet, [facility], Partial fill upon patient request [...] Weight Start Date: 03/10/22 Status: Ordered Pen [place], 31 G x 5 mm BD Ultra [...] each, 0 Refills, Maintenance, 03/10/22 13:17:00 EST, [facility], Partial fill upon patient request if the prescription is for a schedule II opioiddrug., 1 film Topically Every 72 hours, 170, cm, 01... Start Date: 03/10/22 Status: Ordered torsemide 20 mg oral tablet 1 tablet = 20 mg, By Mouth, Daily, # 30 tablet, 0 Refills, Maintenance, 03/10/22 13:14:00 EST, Tablet, [facility], Partial fill upon patient [...] Care Team Personnel Name: Elizabeth Cabezas Position: [facility] RN Member Role: Primary Care Nurse Name: Anuradha Morris RN Position: [facility] RN Member Role: Primary Care Nurse Name: Samantha Reynolds RN Position: [facility] RN Member Role: Primary Care Nurse Name: Omega Gillespie RN Position: [facility] RN Member Role: Primary Care Nurse Name: Doreen Estrada RN Position: [facility] RN Member Role: Primary Care Nurse Name: Paty Kelly RN Position: [facility] RN Member Role: Primary Care Nurse Name: Sonia Malone Position: [facility] RN Member Role: Primary Care Nurse Name: Keira Desai RN Position: [facility] RN Member Role: Primary Care Nurse Name: Gomez Moseley RN Position: [facility] RN Supv Member Role: Primary Care Nurse Name: Vashti Bruce RN Position: [facility] RN Member Role: Primary Care Nurse Name: Raghav Granger Position: [facility] RN Member Role: Primary Care Nurse Name: Cassy Caraballo RN Position: [facility] RN Member Role: Primary Care Nurse Name: Jodi Carrillo RN Position: [facility] RN Member Role: Primary Care Nurse Name: Abbey Shelley RN Position: [facility] RN Member Role: Primary Care Nurse Name: Larissa Barnett RN Position: [facility] RN Member Role: Primary Care Nurse Name: Inna Beckwith RN Position: [facility] RN Member Role: Primary Care Nurse Name: Cady Araya RN Position: [facility] RN Member Role: Primary Care Nurse Name: Abdon Beard MD Position: [facility] Outreach Member Role: PCP Address: Address: [address] [place] [id number]- Name: Anuradha Frank Position: [facility] RN Member Role: Primary Care Nurse Name: Michele Blancas DO Position: [facility] Renal MD Member Role: Lifetime Consulting Physician Address: Address: [address] [place] [address] [address] [facility] [place] [address]- Name: María Acosta RN Position: [facility] RN Member Role: Primary Care Nurse Name: Treasure Gilbert RN Position: [facility] RN Supv Member Role: Primary Care Nurse Name: Farzana Sevilla Position: [facility] RN Member Role: Primary Care Nurse Name: Javan Pimentel MD Position: [facility] Renal MD Member Role: Lifetime Consulting Physician Address: Address: [address] [place] [address] [address] [facility] [place], [place] [address] Name: Heather Pal RN Position: [facility] RN Member Role: Primary Care Nurse Name: Jody Rasmussen RN Position: [facility] RN Member Role: Primary Care Nurse Name: Luisa Devine RN Position: [facility] RN Member Role: Primary Care Nurse Name: Mau Hazel RN Position: S RN Member Role: Primary Care Nurse Name: Pedro Taylor RN Position: [facility] RN Member Role: Primary Care Nurse Name: Charlotte Singletary RN Position: [facility] OB RN Member Role: Primary Care Nurse Name: Alison Jose RN Position: [facility] RN Member Role: Primary Care Nurse Name: Kendall Coleman RN Position: [facility] RN Member Role: Primary Care Nurse Name: Nancy Fair RN Position: [facility] SN RN Member Role: Primary Care Nurse Name: Sofie Reed Position: [facility] RN Member Role: Primary Care Nurse Name: Kasia Vital RN Position: [facility] RN Member Role: Primary Care Nurse Name: Fernando Siddiqi MD Position: [facility] Renal MD Member Role: Lifetime Consulting Physician Address: Address: [address] [place] [address] [facility] [address] Name: Kaelyn Lewis RN Position: [facility] RN Member Role: Primary Care Nurse Name: Lianne Byrnes RN Position: [facility] RN Member Role: Primary Care Nurse Name: Tona Jacome LPN Position: [facility] RN Member Role: Primary Care Nurse Name: Tatiana Madrigal RN Position: [facility] RN Member Role: Primary Care Nurse Name: Jose Callejas RN Position: [facility] RN Member Role: Primary Care Nurse Name: Ashely Riley RN Position: [facility] RN Member Role: Primary Care Nurse Care Team Related Persons Name: LEONOR MCFARLAND Address: home [address] [place] [address] Name: REJI TAYLOR Address: home [address] [place] [address] Name: JEFF CHPAMAN Address: [address] Address: home [address] [address] [place] Name: ELI BONILLA Address: [address] [place] [address]
--- OUTSIDE RECORDS SUMMARY | 2022-06-07 01:14 | XMS_ITS | Continuity of Care Document ---
Author Name Unknown Organization [facility] Address [address] [place] [address]- Care Team Providers Care Rn Hyperbaric Name Role Phone Chirag CARLSON, Abdon Primary Care Physician [phone] [place] [facility] [place](s): 02/28/22 - 05/24/22 [facility] [address] [place] [address]- Attending Physician: Jared Kelly MD Admitting Physician: Jared Kelly MD Referring Physician: Yan GEAR REPAIR SUPERVISOR, Lilia Allergies, Adverse Reactions, Alerts Substance Reaction Severity [...] Acute03/31/23 8:01:00 EST, 03/30/22 8:01:00 EST, Capsule, [facility]/pharmacy #[id number], Partial fill upon patient request if the [...] 03/29/22 12:11:00 EST, [id number] Partial fill upon patient request if the prescription is for a schedule II opi... Start Date: 03/29/22 Status: Ordered Crestor 5 mg oral tablet 1 tablet = 5 mg, By Mouth, Daily, # 30 tablet, 0 Refills, Maintenance, 01/19/22 13:30:00 EST, Tablet, [id number] Partial fill upon patient request if the prescription is for a schedule II opioid drug., 160, cm, 01/19/22 8:55:00 EST, Height, 9... Start Date: 01/19/22 Status: Ordered diclofenac 1% topical gel = 2 Gm, Topically, 4 times a day, # 240 Gm, 0 Refills, Maintenance, 03/30/22 8:01:00 EST, Gel, [facility]/pharmacy #[id number], Partial fill upon patient request if the prescription is for a schedule II opioid drug., 168, cm, 03/29/22 10:53:00 EST, Height, 87.4, k... Start Date: 03/30/22 Status: Ordered Flonase 50 mcg/inh nasal spray 1 sprays, Nares, Both, 2 times a day, # 16 Gm, 0 Refills, Maintenance, 03/10/22 13:15:00 EST, [place], [facility], Partial fill upon [...] 0 Refills, Maintenance, 03/10/22 13:13:00 EST, Injection, [facility], Partial fill upon patient request if the prescription is for a schedule II opioid drug., 170, cm, 03/10/22 10:... Start Date: 03/10/22 Status: Ordered NIFEdipine 30 mg oral tablet, extended release 30 mg, 1, tablet, By Mouth, Daily, # 30 tablet, Refills 0, Tot. Refills 0, Maintenance, 03/10/22 13:15:00 EST, Route to Pharmacy Electronically, [facility], Partial fill upon patient request if the prescription is for a schedule II opioi... Start Date: 03/10/22 Stop Date: 04/09/22 Status: Ordered NovoLOG FlexPen 100 units/mL injectable solution 11-12 UNITS, Subcutaneous Injection, 3 times a day before meals, (NOT TAKING & HASN'T IN MONTHS), # 10 mL, 0 Refills, Maintenance, 03/10/22 13:12:00 EST, Injection, [facility], Partial fill upon patient request if the prescription is for... Start Date: 03/10/22 Status: Ordered ondansetron 4 mg oral tablet 1 tablet = 4 mg, By Mouth, Every 8 hours, PRN Nausea & Vomiting, # 12 tablet, 0 Refills, Maintenance, 03/10/22 13:16:00 EST, Tablet, [facility], Partial fill upon patient request ifthe [...] Weight Start Date: 03/10/22 Status: Ordered Pen [place], 31 G x 5 mm BD Ultra [...] each, 0 Refills, Maintenance, 03/10/22 13:17:00 EST, [facility], Partial fill upon patient request if the prescription is for a schedule II opioiddrug., 1 film Topically Every 72 hours, 170, cm, 01... Start Date: 03/10/22 Status: Ordered torsemide 20 mg oral tablet 1 tablet = 20 mg, By Mouth, Daily, # 30 tablet, 0 Refills, Maintenance, 03/10/22 13:14:00 EST, Tablet, [facility], Partial fill upon [...] Care team information Care Team Personnel Name: Cabezas Elizabeth Position: S RN Member Role: Primary Care Nurse Name: Anuradha Morris RN Position: S RN Member Role: Primary Care Nurse Name: Samantha Reynolds RN Position: [facility] RN Member Role: Primary Care Nurse Name: Omega Gillespie RN Position: [facility] RN Member Role: Primary Care Nurse Name: Doreen Estrada RN Position: [facility] RN Member Role: Primary Care Nurse Name: Paty Kelly RN Position: [facility] RN Member Role: Primary Care Nurse Name: Sonia Malone Position: [facility] RN Member Role: Primary Care Nurse Name: Keira Desai RN Position: [facility] RN Member Role: Primary Care Nurse Name: Gomez Moseley RN Position: [facility] RN Supv Member Role: Primary Care Nurse Name: Vashti Bruce RN Position: [facility] RN Member Role: Primary Care Nurse Name: Raghav Granger Position: [facility] RN Member Role: Primary Care Nurse Name: Cassy Caraballo RN Position: [facility] RN Member Role: Primary Care Nurse Name: Jodi Carrillo RN Position: [facility] RN Member Role: Primary Care Nurse Name: Abbey Shelley RN Position: [facility] RN Member Role: Primary Care Nurse Name: Larissa Barnett RN Position: [facility] RN Member Role: Primary Care Nurse Name: Inna Beckwith RN Position: [facility] RN Member Role: Primary Care Nurse Name: Cady Araya RN Position: [facility] RN Member Role: Primary Care Nurse Name: Abdon Beard MD Position: [facility] Outreach Member Role: PCP Address: Address: [address] [place], [place] [address] Name: Anuradha Frank Position: [facility] RN Member Role: Primary Care Nurse Name: Michele Blancas DO Position: [facility] Renal MD Member Role: Lifetime Consulting Physician Address: Address: [address] [place] [address] [address] [facility] [place] [address]- Name: María Acosta RN Position: [facility] RN Member Role: Primary Care Nurse Name: Treasure Gilbert RN Position: [facility] RN Supv Member Role: Primary Care Nurse Name: Farzana Sevilla Position: [facility] RN Member Role: Primary Care Nurse Name: Javan Pimentel MD Position: [facility] Renal MD Member Role: Lifetime Consulting Physician Address: Address: [address] [place] [address] [address] [facility] [place] [address]- Name: Heather Pal RN Position: [facility] RN Member Role: Primary Care Nurse Name: Jody Rasmussen RN Position: [facility] RN Member Role: Primary Care Nurse Name: Luisa Devine RN Position: S RN Member Role: Primary Care Nurse Name: Mau Hazel RN Position: [facility] RN Member Role: Primary Care Nurse Name: Pedro Taylor RN Position: S RN Member Role: Primary Care Nurse Name: Charlotte Singletary RN Position: [facility] OB RN Member Role: Primary Care Nurse Name: Alison Jose RN Position: [facility] RN Member Role: Primary Care Nurse Name: Kendall Coleman RN Position: [facility] RN Member Role: Primary Care Nurse Name: Nancy Fair RN Position: [facility] SN RN Member Role: Primary Care Nurse Name: Sofie Reed Position: [facility] RN Member Role: Primary Care Nurse Name: Kasia Vital RN Position: [facility] RN Member Role: Primary Care Nurse Name: Fernando Siddiqi MD Position: [facility] Renal MD Member Role: Lifetime Consulting Physician Address: Address: [address] [place] [address] [facility] [place] [address]- Name: Kaelyn Lewis RN Position: [facility] RN Member Role: Primary Care Nurse Name: Lianne Byrnes RN Position: [facility] RN Member Role: Primary Care Nurse Name: Tona Jacome LPN Position: [facility] RN Member Role: Primary Care Nurse Name: Tatiana Madrigal RN Position: [facility] RN Member Role: Primary Care Nurse Name: Jose Callejas RN Position: [facility] RN Member Role: Primary Care Nurse Name: Ashely Riley RN Position: [facility] RN Member Role: Primary Care Nurse Care Team Related Persons Name: LEONOR MCFARLAND Address: home [address] [place] [address] Name: REJI TAYLOR Address: home [address] [place] [address] Name: JEFF CHAPMAN Address: [id number] Address: home [address] [facility] [address] [address] [place] Name: ELI BONILLA Address: home [address] [address]
--- NOTE | 2022-06-07 01:41 | ED_ITS ---
HPI - General Adult General Chief complaint: General Medical Stated complaint: difficulty breathing/left leg swollen Time Seen by Provider: 06/07/22 01:40 Source: patient Mode of arrival: ambulatory Limitations: no limitations History of Present Illness HPI narrative: Patient surgeries old diabetic legally blind with history of reduced ejection fraction 40-45% with CHF with hypertension and CKD with diabetic retinopathy, depression anxiety and peripheral artery disease comes in with increased leg swelling and feeling of fluid retention as in the past patient was admitted just last month with same patient feels short of breath on ambulation discharged home on 05/14 with frequent admissions with same situation patient complained of increased pain in the left lower eye as compared in the past Related Data Home Medications Medication Instructions Recorded Confirmed acetaminophen 325 mg tablet 650 mg PO Q4H PRN Pain 04/01/22 05/10/22 aspirin 81 mg tablet,delayed 2 tab PO DAILY 04/01/22 04/22/22 release diclofenac sodium 1 % topical gel 1 applic topical QID 04/01/22 05/10/22 pantoprazole 40 mg tablet,delayed 1 tab PO DAILY@0630 04/01/22 05/10/22 release torsemide 20 mg tablet 1 tab PO DAILY 04/01/22 05/10/22 insulin aspart U-100 100 unit/mL 2 - 10 unit subcut TID 05/10/22 05/10/22 (3 mL) subcutaneous pen (Novolog FlexPen U-100 Insulin aspart) insulin detemir U-100 100 unit/mL 8 unit subcut BEDTIME 05/10/22 05/10/22 (3 mL) subcutaneous pen (Levemir FlexTouch U-100 Insulin) Previous Rx's Medication Instructions Recorded cyclobenzaprine 10 mg tablet 10 mg PO TID PRN muscle spasm #14 05/03/22 tabs lidocaine 5 % topical patch 1 patch topical DAILY #15 ea 05/03/22 carvedilol 3.125 mg tablet 6.5 mg PO BID #60 tabs 05/14/22 hydralazine 25 mg tablet 50 mg PO BID #60 tabs 05/14/22 hydromorphone 2 mg tablet 2 mg PO Q6H PRN pain (scale score 05/14/22 (Dilaudid) 7-10) #10 tabs isosorbide mononitrate 30 mg 30 mg PO DAILY #30 tabs 05/14/22 tablet,extended release 24 hr Allergies Allergy/AdvReac Type Severity Reaction Status Date / Time morphine [MORPHINE] Allergy Intermediate Itching Verified 05/10/22 15:55 azithromycin [From Zithromax] Allergy Hives Verified 05/10/22 15:55 gabapentin Allergy Facial Verified 05/10/22 15:55 Swelling tramadol Allergy Facial Verified 05/10/22 15:55 Swelling vancomycin Allergy Hives Verified 05/10/22 15:55 Review of Systems Review of Systems: Yes all other systems are reviewed and are negative [facility] Past Medical History Medical History Abnormal finding on echocardiogram Acute dyspnea Acute worsening of stage 3 chronic kidney disease MYNOR (acute kidney injury) Anemia Asthma Back pain Blind right eye Bone infection Cellulitis Cellulitis and abscess of foot Chest pain CHF (congestive heart failure) (~06/07/22) CKD (chronic kidney disease) Depression with anxiety Diabetes Diabetic retinopathy DM foot ulcer Elevated troponin Essential hypertension Fever Generalized edema HTN (hypertension) Migraine Osteomyelitis PAD (peripheral artery disease) Pleural effusion test positive test positive Sepsis Severe anemia Tachycardia Type 2 diabetes mellitus with hyperglycemia, with long-term current use of ins ulin Surgical History History of transmetatarsal amputation of foot S/P transmetatarsal amputation of foot Family History Family History Mother Coronary artery disease Myocardial infarction Stroke Diabetes mellitus Father Myocardial infarction Social History Social History Household Members: Significant Other Household Members Other:: Sister, [id number], nephew Housing: Apartment Do you presently have visiting nurse or other home services: No Alcohol intake: never Patient Tobacco Use Status: Never used Tobacco Smoked in Last 30 Days: No e-Cigarette/Vaping Use: Never Used Second Hand Smoke Exposure: No Use of substances other than those prescribed or required for medical reasons: No Advance Directives: No Advance Directives Information Provided: Yes Advance Directives Date on File: 03/08/20 Patient : No service: No Current occupational status: disabled Gender identity: Female Physical Exam ED Vital Signs: Vital Signs - 24 hr 06/06/22 21:05 06/07/22 00:30 06/07/22 01:22 Temperature 98.0 F 97.9 F Pulse Rate 85 90 Respiratory Rate 16 16 18 Blood Pressure 186/118 H 145/93 H 174/95 H Pulse Oximetry 98 94 Oxygen Delivery Method Room Air Room Air BMI result Body Mass Index 30.7 Appearance: Alert. Oriented X3. No acute distress. Eyes: Legally blind partial light sensation right eye ENT: Pharynx normal. Oral Mucosa moist Neck: Normal inspection. Neck supple. CVS: Normal heart rate and rhythm. Pulses normal. Respiratory: No respiratory distress. Equal air entry bilateral, bilateral basal rales decreased urine Abdomen: Soft and nontender. Bowel sounds are present, no mass palpable, no CVA tenderness Skin: Skin warm and dry. Normal skin color. Normal skin turgor. Extremities: Bilateral 4+ edema left leg is tender the calf area with severe pitting edema Neuro: Oriented X 3. No motor deficit. No sensory deficit.No cerebellar signs , cranial nerves II-XII intact Medications Administered Generic Name Dose Route Start Last Admin Trade Name Freq PRN Reason Stop Dose Admin Enoxaparin Sodium 30 mg 06/07/22 03:30 06/07/22 03:30 Enoxaparin Sodium 30 Mg/0.3 Ml Syringe SUBCUT Not Given Q24H VASILE Discontinued Medications Generic Name Dose Route Start Last Admin Trade Name Freq PRN Reason Stop Dose Admin Furosemide 40 mg 06/07/22 01:47 06/07/22 02:25 Furosemide 40 Mg/4 Ml Vial IVPUSH 06/07/22 01:48 40 mg ONCE ONE Administration Protocol Hydralazine HCl 10 mg 06/07/22 01:47 06/07/22 02:24 Hydralazine Hcl 20 Mg/Ml Vial IVPUSH 06/07/22 01:48 10 mg ONCE ONE Administration Protocol Hydromorphone HCl 1 mg 06/07/22 02:43 06/07/22 02:47 Hydromorphone Hcl 1 Mg/Ml Syringe IVPUSH 06/07/22 02:44 1 mg ONCE ONE Administration Protocol Labetalol HCl 5 mg 06/07/22 03:18 06/07/22 03:25 Labetalol Hcl 100 Mg/20 Ml Vial IVPUSH 06/07/22 03:19 Not Given ONCE ONE Ondansetron HCl 4 mg 06/07/22 03:17 06/07/22 03:24 Ondansetron Hcl 4 Mg/2 Ml Vial IVPUSH 06/07/22 03:18 4 mg ONCE ONE Administration Sodium Zirconium Cyclosilicate 10 gm 06/07/22 01:47 06/07/22 02:34 Sodium Zirconium Cyclosilicate 10 Gm Powd.Pack PO 06/07/22 01:48 10 gm ONCE ONE Administration Medical Decision Making Medical Decision Making [facility] Narrative: Patient diabetic noncompliant with fluid overload with frequent hospitalization came here for similar fluid overload with increased leg swelling, chest x-ray negative, will admit patient for IV diuresis pain Consult Healthcare Provider Management of the patient was discussed with: Hospitalist Lab Data [facility] Lab Attestation statement: I reviewed the patient's lab results. 06/06/22 21:53 06/06/22 21:53 Labs: Lab Results 06/06/22 06/06/22 06/06/22 Range/Units 21:53 21:53 21:53 WBC 4.7 L (4.8-10.8) X10*3/uL RBC 2.82 L (4.20-5.50) X10*6/uL Hgb 7.9 L (12.0-16.0) g/dl Hct 25.7 L (37.0-47.0) % MCV 91.1 (80.0-98.0) fL MCH 28.0 (27.0-33.0) pg MCHC 30.7 L (31.0-35.0) g/dl RDW 17.6 H (11.0-16.0) % Plt Count 204 (160-400) X10*3/uL MPV 12.7 H (9.4-12.3) fL Absolute Nucleated RBC 0.030 H (0.0-0.012) X10*3/uL Nucleated RBC % (auto) 0.6 H (0.0-0.2) /100WBC PT (10.0-13.1) SEC INR (0.9-1.1) APTT (26.0-36.4) SEC Sodium 135 (135-145) mmol/L Potassium 5.7 H D (3.3-5.1) mmol/L Chloride 113 H (96-108) mmol/L Carbon Dioxide 11 L (22-29) mmol/L Anion Gap 17 (12-20) BUN 53 H (9-16) mg/dL Creatinine 3.62 H (0.5-1.4) mg/dL Estim Creat Clear Calc 24.4 Estimated GFR 14 Random Glucose 104 (60-115) mg/dL Calcium 7.6 L D (8.4-10.2) mg/dL Total Bilirubin 1.1 H (0.0-1.0) mg/dL AST 27 (5-31) U/L ALT 25 (0-31) U/L Alkaline Phosphatase 119 H (39-117) U/L Troponin I High Sens 11.5 (<3.5-17.0) ng/L B-Natriuretic Peptide (<100) pg/mL Total Protein 6.3 L (6.5-8.0) g/dL Albumin 3.0 L (3.5-5.0) g/dL COVID-19 (CARO) (Negative) COVID-19 Clin Com 06/07/22 06/07/22 06/07/22 Range/Units 01:59 01:59 01:59 WBC (4.8-10.8) X10*3/uL RBC (4.20-5.50) X10*6/uL Hgb (12.0-16.0) g/dl Hct (37.0-47.0) % MCV (80.0-98.0) fL MCH (27.0-33.0) pg MCHC (31.0-35.0) g/dl RDW (11.0-16.0) % Plt Count (160-400) X10*3/uL MPV (9.4-12.3) fL Absolute Nucleated RBC (0.0-0.012) X10*3/uL Nucleated RBC % (auto) (0.0-0.2) /100WBC PT 13.6 H (10.0-13.1) SEC INR 1.2 H (0.9-1.1) APTT 28.3 (26.0-36.4) SEC Sodium (135-145) mmol/L Potassium (3.3-5.1) mmol/L Chloride (96-108) mmol/L Carbon Dioxide (22-29) mmol/L Anion Gap (12-20) BUN (9-16) mg/dL Creatinine (0.5-1.4) mg/dL Estim Creat Clear Calc Estimated GFR Random Glucose (60-115) mg/dL Calcium (8.4-10.2) mg/dL Total Bilirubin (0.0-1.0) mg/dL AST (5-31) U/L ALT (0-31) U/L Alkaline Phosphatase (39-117) U/L Troponin I High Sens (<3.5-17.0) ng/L B-Natriuretic Peptide 3369 H (<100) pg/mL Total Protein (6.5-8.0) g/dL Albumin (3.5-5.0) g/dL COVID-19 (CARO) Negative (Negative) COVID-19 Clin Com See Note Discharge Plan Discharge Clinical Impression: CHF (congestive heart failure), Anemia in chronic kidney disease (CKD), CKD (chronic kidney disease) Patient Disposition: Admitted As Inpatient
[2022-06-07 02:13] LABS: INTERNATIONAL NORM RATIO 1.2 (0.9-1.1); Prothrombin Time 13.6 SEC (10.0-13.1)
[2022-06-07 02:15] LABS: Partial Thromboplastin Time 28.3 SEC (26.0-36.4)
[2022-06-07 02:21] LABS: COVID-19 Test Negative (Negative); IDNOW Serial# 6674DD1D
[2022-06-07] MEDS: hydrALAZINE HCl 20 MG/ML VIAL 10 MG IVPUSH (02:24)
[2022-06-07] MEDS: Furosemide 40 MG/4 ML VIAL IVPUSH ×3 (02:25→17:34)
[2022-06-07 02:32] LABS: B Type Natriuretic Peptide 3369 pg/mL (<100)
[2022-06-07] MEDS: Sodium Zirconium Cyclosilicate 10 GM POWD.PACK PO (02:34)
[2022-06-07] MEDS: HYDROmorphone HCl 1 MG/ML SYRINGE IVPUSH (02:47)
--- NOTE | 2022-06-07 03:21 | PM.IMHP ---
History of Present Illness Date of Service: 06/07/22 Chief Complaint: Shortness of breath This is a 31-year-old female with pertinent history of essential hypertension, congestive heart failure with reduced ejection fraction, 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 Patient states it has been ongoing for the last 2-3 days. States she feels like there is fluid in her lungs. Does under hours orthopnea and bilateral lower extremity edema. Shortness of breath is worse with exertion. Patient states she is compliant with her home medications. Denies fever, chills, cough, palpitations, chest discomfort, abdominal pain, changes in urinary or bowel habits. In the emergency department, patient's blood pressure was found to be elevated and she was given IV labetalol and IV Lasix Review of Systems Constitutional: Constitutional: Reports no additional constitutional complaints Cardiovascular: Cardiovascular: Reports dyspnea on exertion and Reports orthopnea Respiratory: Respiratory: Reports dyspnea on exertion Gastrointestinal: Gastrointestinal: Reports no additional gastrointestinal complaints Genitourinary: Genitourinary: Reports no additional female genitourinary complaints Musculoskeletal: Musculoskeletal: Reports no additional musculoskeletal complaints Neurologic: Reports system reviewed and no additional complaints, except as documented [facility] Medical History (Updated 06/07/22 @ 03:25 by Alejandra Sewell MD) Abnormal finding on echocardiogram Acute dyspnea Acute worsening of stage 3 chronic kidney disease MYNOR (acute kidney injury) Anemia Asthma Back pain Blind right eye Bone infection Cellulitis Cellulitis and abscess of foot Chest pain CHF (congestive heart failure) (~06/07/22) CKD (chronic kidney disease) Depression with anxiety Diabetes Diabetic retinopathy DM foot ulcer Elevated troponin Essential hypertension Fever Generalized edema HTN (hypertension) Migraine Osteomyelitis PAD (peripheral artery disease) Pleural effusion test positive test positive Sepsis Severe anemia Tachycardia Type 2 diabetes mellitus with hyperglycemia, with long-term current use of insulin Family History Mother Coronary artery disease Myocardial infarction Stroke Diabetes mellitus Father Myocardial infarction Surgical History History of transmetatarsal amputation of foot S/P transmetatarsal amputation of foot Social History Household Members: Significant Other Household Members Other:: Sister, [id number], nephew Housing: Apartment Do you presently have visiting nurse or other home services: No Alcohol intake: never Patient Tobacco Use Status: Never used Tobacco Smoked in Last 30 Days: No e-Cigarette/Vaping Use: Never Used Second Hand Smoke Exposure: No Use of substances other than those prescribed or required for medical reasons: No Advance Directives: No Advance Directives Information Provided: Yes Advance Directives Date on File: 03/08/20 Patient : No service: No Current occupational status: disabled Gender identity: Female Meds Allergies Allergy/AdvReac Type Severity Reaction Status Date / Time morphine [MORPHINE] Allergy Intermediate Itching Verified 05/10/22 15:55 azithromycin [From Zithromax] Allergy Hives Verified 05/10/22 15:55 gabapentin Allergy Facial Verified 05/10/22 15:55 Swelling tramadol Allergy Facial Verified 05/10/22 15:55 Swelling vancomycin Allergy Hives Verified 05/10/22 15:55 Active Medications: Current Medications Furosemide (Furosemide 40 Mg/4 Ml Vial) 40 mg IVPUSH BID@0900,1800 VASILE; Protocol Labetalol HCl (Labetalol Hcl 100 Mg/20 Ml Vial) 5 mg IVPUSH ONCE ONE Stop: 06/07/22 03:19 Ondansetron HCl (Ondansetron Hcl 4 Mg/2 Ml Vial) 4 mg IVPUSH ONCE ONE Stop: 06/07/22 03:18 Home Medications Medication Instructions Recorded Confirmed Last Taken Type acetaminophen 325 mg tablet 650 mg PO Q4H PRN Pain 04/01/22 05/10/22 Unknown History aspirin 81 mg tablet,delayed 2 tab PO DAILY 04/01/22 04/22/22 2 Days Ago History release ~04/20/22 diclofenac sodium 1 % topical gel 1 applic topical QID 04/01/22 05/10/22 2 Days Ago History ~04/20/22 pantoprazole 40 mg tablet,delayed 1 tab PO DAILY@0630 04/01/22 05/10/22 2 Days Ago History release ~04/20/22 torsemide 20 mg tablet 1 tab PO DAILY 04/01/22 05/10/22 2 Days Ago History ~04/20/22 insulin aspart U-100 100 unit/mL 2 - 10 unit subcut TID 05/10/22 05/10/22 Unknown History (3 mL) subcutaneous pen (Novolog FlexPen U-100 Insulin aspart) insulin detemir U-100 100 unit/mL 8 unit subcut BEDTIME 05/10/22 05/10/22 Unknown History (3 mL) subcutaneous pen (Levemir FlexTouch U-100 Insulin) Physical Exam Vital Signs and Narrative: Vital Signs: Last Vital Signs Temp 97.9 F 06/07/22 01:22 Pulse 90 06/07/22 01:22 Resp 18 06/07/22 01:22 BP 174/95 H 06/07/22 01:22 Pulse Ox 94 06/07/22 01:22 O2 Del Method Room Air 06/07/22 01:22 BMI result Body Mass Index 30.7 Middle-aged female lying in bed in mild distress Neck supple, no JVD Regular rate and rhythm, S1-S2 heard Bilateral crackles without wheezing Abdomen soft nontender, no guarding, no rigidity Patient is awake, alert and oriented to self, place, time and person ; no focal motor deficit Psych: Normal mood Bilateral lower extremity +2 pedal edema Results Labs 06/06/22 21:53 06/06/22 21:53 Labs: Laboratory Results - last 24 hr 06/06/22 06/06/22 06/06/22 21:53 21:53 21:53 MCV 91.1 MCH 28.0 MCHC 30.7 L RDW 17.6 H Plt Count 204 MPV 12.7 H Absolute Nucleated RBC 0.030 H Nucleated RBC % (auto) 0.6 H PT INR APTT Anion Gap 17 Estim Creat Clear Calc 24.4 Estimated GFR 14 Random Glucose 104 Calcium 7.6 L D Total Bilirubin 1.1 H AST 27 ALT 25 Alkaline Phosphatase 119 H Troponin I High Sens 11.5 B-Natriuretic Peptide Total Protein 6.3 L Albumin 3.0 L COVID-19 (CARO) COVID-19 Clin Com 06/07/22 06/07/22 06/07/22 01:59 01:59 01:59 MCV MCH MCHC RDW Plt Count MPV Absolute Nucleated RBC Nucleated RBC % (auto) PT 13.6 H INR 1.2 H APTT 28.3 Anion Gap Estim Creat Clear Calc Estimated GFR Random Glucose Calcium Total Bilirubin AST ALT Alkaline Phosphatase Troponin I High Sens B-Natriuretic Peptide 3369 H Total Protein Albumin COVID-19 (CARO) Negative COVID-19 Clin Com See Note Imaging Radiologist's Impressions: Impressions Chest X-Ray 06/06/22 21:17 IMPRESSION: Unremarkable examination. Assessment and Plan (1) CHF (congestive heart failure): Qualifiers: Heart failure chronicity: acute Heart failure type: unspecified Qualified Code(s): I50.9 - Heart failure, unspecified Status: Acute Plan This is a 31-year-old female with pertinent history of essential hypertension, congestive heart failure with reduced ejection fraction, 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 #. Acute on chronic congestive heart failure with reduced ejection fraction: Likely due to elevated blood pressure. Will admit patient and initiate IV Lasix. Noted recent echocardiogram. Patient on beta-mohamud. Strict I's and O's and low-salt diet. #. Elevated blood pressure: Given IV labetalol in the ER. Continue home antihypertensives. Trend and optimize. #. Insulin-dependent diabetes mellitus: Initiating Accu-Cheks with sliding scale insulin #. CKD stage 4: Monitor creatinine and urine output with IV diuresis. Avoid nephrotoxins #. Chronic normocytic anemia Med rec pending DVT prophylaxis: Lovenox 30 mg daily Full code Low-salt diet Time Spent With Patient Time: Total time managing care of this patient today ____ minutes. Quality Stroke Does the patient have a stroke diagnosis?: No VTE Prior VTE?: No VTE Risk Level:: Medical - moderate - high VTE Device Contraindication: Treatment Not Indicated VTE Drug Contraindication: N/A - Med Ordered
[2022-06-07] MEDS: ondansetron HCL 4 MG/2 ML VIAL IVPUSH (03:24)
[2022-06-07 06:57] LABS: Glucose, Whole Blood 145 mg/dL (60-115)
[2022-06-07 07:41] LABS: MANUAL DIFF FLAG NO
[2022-06-07 07:43] LABS: Basophils Percent Auto 0.7 % (0-2); Eosinophils Absolute Auto 0.1 X10*3/uL (0.0-0.4); Eosinophils Percent Auto 1.9 % (0-4); Hematocrit 25.7 % (37.0-47.0); Imm Gran Abs Auto 0.03 X10*3/uL (0.00-0.03); Imm Gran Pct Auto 0.7 % (0.0-0.4); Lymphocytes Absolute Auto 0.6 X10*3/uL (1.2-4.9); Mean Corpuscular HGB Conc 31.1 g/dl (31.0-35.0); Mean Corpuscular Hemoglobin 27.5 pg (27.0-33.0); Mean Corpuscular Volume 88.3 fL (80.0-98.0); Mean Platelet Volume 12.2 fL (9.4-12.3); Monocytes Absolute Auto 0.6 X10*3/uL (0.1-1.2); Monocytes Percent Auto 12.9 % (2-11); Neutrophils Percent Auto 68.8 % (45-73); Platelet Count 203 X10*3/uL (160-400); Red Blood Count 2.91 X10*6/uL (4.20-5.50); Red Cell Distribution Width 17.6 % (11.0-16.0); White Blood Count 4.3 X10*3/uL (4.8-10.8)
[2022-06-07 08:05] LABS: Anion Gap 13 (12-20); Blood Urea Nitrogen 52 mg/dL (9-16); Calcium 7.8 mg/dL (8.4-10.2); Carbon Dioxide 18 mmol/L (22-29); Chloride 111 mmol/L (96-108); Creatinine Clr Calc Pharmacy 25.8; Estimated Glomerular Filt Rate 15; Glucose Random 146 mg/dL (60-115); Potassium 4.8 mmol/L (3.3-5.1); Sodium 137 mmol/L (135-145)
--- NOTE | 2022-06-07 08:25 | PHA.MEDREC ---
Pharmacy Consult ? Medication Reconciliation Pharmacy has completed the medication reconciliation. Pt doesn't know any of her meds or doses. She states [facility] knows all of that . Used claim history to complete med rec.
--- NOTE | 2022-06-07 08:43 | PM.EVENT ---
Event Note Date of Service: 06/07/22 Event Note: Patient admitted for acute CHF exacerbation, complaining of lower extremity pain, patient has a wound at the bottom of her left foot, draining clear, reports being followed by primary care physician. Not on antibiotics. Stay shortness of breath slightly better. The pain in her low lower extremities is very severe and is bilateral. Will obtain ESR, CRP if elevated will consider MRI of the foot, Will also obtain bilateral lower extremity venous duplex given the swelling and tenderness of her lower extremities Time Spent With Patient Time: Total time managing care of this patient today ____ minutes.
--- NOTE | 2022-06-07 08:44 | PC.NURSE ---
RN to RN report given to Opal.
--- NOTE | 2022-06-07 08:49 | PC.NURSE ---
Pt semi-fowlers in stretcher, airway open and patent, pt complaining of pain in leg and head. A&ox4, skin normal for ethnicity, warm, and dry. Lung sounds clr and equal bilat all reynolds. Heart sounds normal. Bowel sounds present all reynolds, abdomen soft, non-tender. Pt left toes amputee. Pt right 2 toe amputee, as well as a dressed wound on bottom of right foot. Edema noted in legs.
[2022-06-07] MEDS: 0.9 % Sodium Chloride Flush 3 ML SYRINGE IVFLUSH ×3 (09:07→20:11)
[2022-06-07] MEDS: HYDROmorphone HCl 0.5 MG/0.5 ML SYRINGE IVPUSH ×3 (10:20→22:37)
--- NOTE | 2022-06-07 14:07 | MHC.CLN ---
NUTRITION CONSULT FOR WOUND ON BOTTOM OF FOOT. PATIENT WITH DM, CHF, CKD STAGE 4. HX DM ULCERS AND OSTEOMYELITIS. WOUND NOT SPECIFIED PRESSURE INJURY. DIET CHANGED TO DIABETIC 1800 KCALS, CARDIAC FOR CONTROL OF BLOOD SUGARS AND SODIUM INTAKE. NO ADDITIONAL NUTRITION INTERVENTIONS AT THIS TIME.
--- NOTE | 2022-06-07 14:15 | MHC.CM.PN ---
PATIENT LIVES WITH SIGNIFICANT OTHER HCP ON FILE AND VERIFIED. SHE HAS [facility] AND HOPES TO RETURN HOME WITH RESUMPTION. DEBORA JOHNSON CASE MANAGEMENT FOLLOWING IMM 06/07 IN CHART
[2022-06-07] MEDS: Aspirin Enteric Coated 81 MG TABLET.DR 162 MG PO (14:18)
[2022-06-07 16:27] LABS: C Reactive Protein 0.35 mg/dL (< or = 0.50)
[2022-06-07 17:02] LABS: Erythrocyte Sedimentation Rate 51 MM/HR (0-20)
[2022-06-07 20:04] LABS: Glucose, Whole Blood 83 mg/dL (60-115)
[2022-06-07] MEDS: hydrALAZINE HCl 50 MG TABLET PO (20:06)
[2022-06-07] MEDS: carvediloL 3.125 MG TABLET 6.5 MG PO (20:08)
--- NOTE | 2022-06-08 01:34 | PC.NURSE ---
Pt had POC =87, as per staff pt skipped lunch and dinner, and refusing snack too, Dr. Sewell was informed, Lantus held. Pt c/o leg pain 11/05, pt refused Oxycodone prn as it gives her upset stomach , and said she prefer IV, Nallely Sewell was made aware, Dilaudid 0.5 mg IV given, pt had relief after.
[2022-06-08 07:16] VITALS: BP 194/93; PULSE 89; RESP 18; TEMP 36.1; O2SAT 92
[2022-06-08 07:46] LABS: Glucose, Whole Blood 69 mg/dL (60-115)
[2022-06-08] MEDS: NIFEdipine ER 30 MG TAB.ER.24 PO ×2 (08:08→10:45)
[2022-06-08] MEDS: Aspirin Enteric Coated 81 MG TABLET.DR 162 MG PO (08:08)
[2022-06-08] MEDS: hydrALAZINE HCl 50 MG TABLET PO (08:08)
[2022-06-08] MEDS: Isosorbide Mononitrate 30 MG TAB.ER.24H PO (08:08)
[2022-06-08] MEDS: carvediloL 3.125 MG TABLET 6.5 MG PO ×2 (08:08→20:44)
[2022-06-08] MEDS: Furosemide 40 MG/4 ML VIAL IVPUSH (08:11)
[2022-06-08] MEDS: 0.9 % Sodium Chloride Flush 3 ML SYRINGE IVFLUSH ×2 (08:12→20:48)
[2022-06-08] MEDS: HYDROmorphone HCl 0.5 MG/0.5 ML SYRINGE IVPUSH (08:20)
[2022-06-08 08:58] VITALS: BP 200/100
[2022-06-08 09:18] VITALS: BP 182/90
[2022-06-08 11:44] LABS: Glucose, Whole Blood 107 mg/dL (60-115)
[2022-06-08 11:57] VITALS: BP 175/89; PULSE 85; RESP 18; TEMP 36.1; O2SAT 95
[2022-06-08] MEDS: HYDROmorphone HCl 0.5 MG/0.5 ML SYRINGE 0.25 MG IVPUSH ×2 (15:22→20:42)
[2022-06-08 15:39] VITALS: BP 131/65; PULSE 84; RESP 18; TEMP 36.3
--- NOTE | 2022-06-08 15:39 | P.PNIM_ITS ---
Subjective Subjective Date of Service: 06/08/22 Interval History: seen and examined this morning follow up for chf reporting leg pain no sob, no chest pain Review of Systems Review of Systems: Yes all other systems are reviewed and are negative Constitutional Constitutional: Denies chills and Denies fever(s) ENT Ears, Nose, Mouth, and Throat: Denies dizziness Cardiovascular Cardiovascular: Denies chest pain, Denies palpitations and Denies dyspnea Respiratory Respiratory: Denies cough and Denies dyspnea Gastrointestinal Gastrointestinal: Denies abdominal pain Neurologic Neurologic: Denies dizziness Endocrine Endocrine: Denies palpitations Physical Exam Vital Signs: Vital Signs: Last Vital Signs Temp 96.9 F 06/08/22 11:57 Pulse 85 06/08/22 11:57 Resp 18 06/08/22 11:57 BP 175/89 H 06/08/22 11:57 Pulse Ox 95 06/08/22 11:57 O2 Del Method Room Air 06/08/22 11:57 BMI result Body Mass Index 30.7 Const: General: alert and awake Nutritional Appearance: overweight Orientation/consciousness: patient oriented x3 Eyes: Other: right eye blind Resp: Effort & Inspection: normal respiratory effort, able to speak in complete sentences, no respiratory distress and no use of accessory muscles Auscultation: clear to auscultation bilaterally Cardio: Rate: regular rate Heart sounds: S1 normal heart sound present and S2 normal heart sound present GI: Inspection: No distended Palpation (GI): Soft to palpation and nontender Skin: Other: plantar aspect left foot shallow wound, no erythema, no drainage (pt reports wound is improving) Neuro: General: patient oriented x3 and CN's II-XI intact bilaterally Extrem: Other: b/l leg swelling. no erythema. Objective Data Active Medications Acetaminophen (Acetaminophen 325 Mg Tablet) 650 mg PO Q6H PRN PRN Reason: Pain, Mild (Pain Scale 1-3) Aspirin (Aspirin Enteric Coated 81 Mg Tablet.) 162 mg PO DAILY [facility] Last Admin: 06/08/22 08:08 Dose: 162 mg Documented By: HAIM Carvedilol (Carvedilol 3.125 Mg Tablet) 6.5 mg PO BID [facility]; Protocol Last Admin: 06/08/22 08:08 Dose: 6.5 mg Documented By: HAIM Enoxaparin Sodium (Enoxaparin Sodium 30 Mg/0.3 Ml Syringe) 30 mg SUBCUT Q24H [facility] Last Admin: 06/08/22 03:45 Dose: Not Given Documented By: OLGA Non-Admin Reason: Patient Refused Furosemide (Furosemide 40 Mg/4 Ml Vial) 40 mg IVPUSH BID@0900,1800 [facility]; Protocol Last Admin: 06/08/22 08:11 Dose: 40 mg Documented By: HAIM Glucose (Glucose Gel 15 Gm Gel..Gram.) 15 gm PO Q15M PRN; Protocol PRN Reason: per Hypoglycemia Standing Ord. Hydralazine HCl (Hydralazine Hcl 50 Mg Tablet) 50 mg PO BID [facility]; Protocol Last Admin: 06/08/22 08:08 Dose: 50 mg Documented By: HAIM Hydromorphone HCl (Hydromorphone Hcl 0.5 Mg/0.5 Ml Syringe) 0.25 mg IVPUSH Q4H PRN; Protocol PRN Reason: Pain, Severe (Pain Scale 7-10) Last Admin: 06/08/22 15:22 Dose: 0.25 mg Documented By: HAIM Dextrose (D10) 250 mls @ 750 mls/hr IV Q15M PRN; Protocol PRN Reason: per Hypoglycemia Standing Ord. Insulin Glargine (Insulin Glargine,Hum.Rec.Anlog 100 Unit/Ml 10 Ml Vial) 5.6 unit SUBCUT BEDTIME [facility] Last Admin: 06/07/22 21:48 Dose: Not Given Documented By: OLGA Non-Admin Reason: Physician Held Med Insulin Human Lispro (Insulin Lispro 100 Unit/Ml 3 Ml Vial) 0.1 - 10 unit SUBCUT QIDACHS [facility]; Protocol Last Admin: 06/08/22 11:40 Dose: Not Given Documented By: HAIM Non-Admin Reason: No Insulin Coverage Isosorbide Mononitrate (Isosorbide Mononitrate 30 Mg Tab.Er.24h) 30 mg PO DAILY [facility]; Protocol Last Admin: 06/08/22 08:08 Dose: 30 mg Documented By: HAIM Melatonin (Melatonin 3 Mg Tablet) 6 mg PO BEDTIME PRN PRN Reason: Insomnia Nifedipine (Nifedipine Er 30 Mg Tab.Er.24) 60 mg PO DAILY [facility]; Protocol Omeprazole (Omeprazole 20 Mg Capsule.Dr) 20 mg PO DAILY@0630 [facility] Last Admin: 06/08/22 05:43 Dose: Not Given Documented By: OLGA Non-Admin Reason: Patient Refused Ondansetron HCl (Ondansetron Hcl 4 Mg/2 Ml Vial) 4 mg IVPUSH Q8H PRN PRN Reason: Nausea and Vomiting Oxycodone HCl (Oxycodone Hcl Immed Release 5 Mg Tablet) 5 mg PO Q6H PRN PRN Reason: severe pain Pharmacy Consult (Consult Rx Perform Med Rec) 1 each MISCELLANE ONCE PRN PRN Reason: Consult order Sodium Chloride (0.9 % Sodium Chloride Flush 3 Ml Syringe) 3 ml IVFLUSH QSHIFT [facility] Last Admin: 06/08/22 08:12 Dose: 3 ml Documented By: GRAZIC Labs 06/07/22 07:29 06/07/22 07:29 Labs: Laboratory Results - last 24 hr 06/07/22 06/07/22 06/07/22 16:06 16:06 20:00 ESR 51 H POC Glucose 83 C-Reactive Protein 0.35 06/08/22 06/08/22 07:00 11:29 ESR POC Glucose 69 107 C-Reactive Protein Assessment and Plan (1) CHF (congestive heart failure): Status: Acute Plan This is a 31-year-old female with pertinent history of essential hypertension, congestive heart failure with reduced ejection fraction, 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 #. Acute on chronic congestive heart failure with reduced ejection fraction: Likely due to elevated blood pressure Continue IV Lasix. Strict I's and O's and low-salt diet. will check BMP, BNP #. Elevated blood pressure: Given IV labetalol in the ER. Continue home antihypertensives, continue home meds #. Insulin-dependent diabetes mellitus: continue POCs, SSI, #. CKD stage 4: Monitor creatinine and urine output with IV diuresis. Avoid nephrotoxins # b/l leg pain US negative for DVT ?r/t edema leg elevation #chronic left foot wound pt reports it is healing, does not appear infected xray without evidence of bone involvement # hyperkalemia k 5.7 on admission resolved #. Chronic normocytic anemia H/H stable DVT prophylaxis: Lovenox 30 mg daily Full code attending - dr. healy requires ongoing inpatient stay for management of pain requiring IV analgsia, elevated blood pressure, CHF requiring IV diuretics. Time Spent With Patient Time: Total time managing care of this patient today ____ minutes. Quality Stroke Does the patient have a stroke diagnosis?: No VTE Prior VTE?: No VTE Risk Level:: Medical - moderate - high VTE Device Contraindication: Treatment Not Indicated VTE Drug Contraindication: N/A - Med Ordered
[2022-06-08 16:19] LABS: Anion Gap 11 (12-20); Blood Urea Nitrogen 49 mg/dL (9-16); Carbon Dioxide 21 mmol/L (22-29); Chloride 106 mmol/L (96-108); Creatinine Clr Calc Pharmacy 25.8; Estimated Glomerular Filt Rate 15; Glucose Random 148 mg/dL (60-115); Potassium 4.4 mmol/L (3.3-5.1); Sodium 134 mmol/L (135-145)
[2022-06-08 16:31] LABS: B Type Natriuretic Peptide 2732 pg/mL (<100)
[2022-06-08 16:42] LABS: Glucose, Whole Blood 148 mg/dL (60-115)
[2022-06-08 19:17] VITALS: BP 109/58; PULSE 82; RESP 20; TEMP 36.5; O2SAT 95
[2022-06-08 21:25] LABS: Glucose, Whole Blood 171 mg/dL (60-115)
[2022-06-09] MEDS: HYDROmorphone HCl 0.5 MG/0.5 ML SYRINGE 0.25 MG IVPUSH ×3 (00:37→09:21)
[2022-06-09 03:27] VITALS: BP 91/68; PULSE 84; RESP 18; TEMP 36.5; O2SAT 97
[2022-06-09 04:48] VITALS: BP 127/74
[2022-06-09 07:44] LABS: Glucose, Whole Blood 240 mg/dL (60-115)
[2022-06-09 08:00] VITALS: BP 119/56; PULSE 72; RESP 18; TEMP 37.1; O2SAT 93
[2022-06-09] MEDS: Aspirin Enteric Coated 81 MG TABLET.DR 162 MG PO (08:20)
[2022-06-09] MEDS: carvediloL 3.125 MG TABLET 6.5 MG PO ×2 (08:20→21:09)
[2022-06-09] MEDS: hydrALAZINE HCl 50 MG TABLET PO ×2 (08:21→21:08)
[2022-06-09] MEDS: Insulin Lispro 100 UNIT/ML 3 ML VIAL SUBCUT (08:22)
[2022-06-09] MEDS: Isosorbide Mononitrate 30 MG TAB.ER.24H PO (08:22)
[2022-06-09] MEDS: NIFEdipine ER 30 MG TAB.ER.24 PO (08:22)
[2022-06-09] MEDS: Furosemide 40 MG/4 ML VIAL IVPUSH (08:22)
[2022-06-09 09:06] LABS: Hematocrit 24.3 % (37.0-47.0); Hemoglobin 7.7 g/dl (12.0-16.0); Mean Corpuscular HGB Conc 31.7 g/dl (31.0-35.0); Mean Corpuscular Hemoglobin 27.5 pg (27.0-33.0); Mean Corpuscular Volume 86.8 fL (80.0-98.0); Mean Platelet Volume 11.7 fL (9.4-12.3); Platelet Count 204 X10*3/uL (160-400); Red Cell Distribution Width 17.1 % (11.0-16.0); White Blood Count 4.9 X10*3/uL (4.8-10.8)
[2022-06-09 09:23] VITALS: BP 121/56; PULSE 84
[2022-06-09] MEDS: 0.9 % Sodium Chloride Flush 3 ML SYRINGE IVFLUSH ×2 (10:33→22:04)
[2022-06-09 10:50] LABS: Anion Gap 12 (12-20); Blood Urea Nitrogen 52 mg/dL (9-16); Calcium 7.8 mg/dL (8.4-10.2); Carbon Dioxide 19 mmol/L (22-29); Chloride 108 mmol/L (96-108); Creatinine Clr Calc Pharmacy 23.7; Estimated Glomerular Filt Rate 14; Glucose Random 217 mg/dL (60-115); Potassium 4.2 mmol/L (3.3-5.1); Sodium 135 mmol/L (135-145)
--- NOTE | 2022-06-09 11:02 | MHC.CM.PN ---
PATIENT NEEDS MORE WORK-UP NO PLAN FOR DC TODAY
[2022-06-09 11:26] LABS: Glucose, Whole Blood 96 mg/dL (60-115)
--- NOTE | 2022-06-09 11:42 | HO.PM.IMPN ---
Subjective Subjective Date of Service: 06/09/22 Interval History: seen and examined this morning follow up for foot pain, CHF, elevated BP reporting ongoing pain in left foot denies sob, chest pain, abdominal pain Review of Systems Review of Systems: Yes all other systems are reviewed and are negative Constitutional Constitutional: Denies chills and Denies fever(s) Cardiovascular Cardiovascular: Denies chest pain, Denies palpitations and Denies dyspnea Respiratory Respiratory: Denies cough and Denies dyspnea Endocrine Endocrine: Denies palpitations Physical Exam Vital Signs: Vital Signs: Last Vital Signs Temp 98.7 F 06/09/22 08:00 Pulse 84 06/09/22 09:23 Resp 18 06/09/22 08:00 BP 121/56 L 06/09/22 09:23 Pulse Ox 93 06/09/22 08:00 O2 Del Method Room Air 06/09/22 08:00 BMI result Body Mass Index 30.7 Const: General: alert and awake Nutritional Appearance: overweight Orientation/consciousness: patient oriented x3 Eyes: Other: right eye blind Resp: Effort & Inspection: normal respiratory effort, able to speak in complete sentences, no respiratory distress and no use of accessory muscles Auscultation: clear to auscultation bilaterally Cardio: Rate: regular rate Heart sounds: S1 normal heart sound present and S2 normal heart sound present GI: Inspection: No distended Palpation (GI): Soft to palpation and nontender Skin: Other: plantar aspect left foot shallow wound, no erythema, no drainage (pt reports wound is improving) Neuro: General: patient oriented x3 and CN's II-XI intact bilaterally Extrem: Other: b/l leg swelling. no erythema. Objective Data Active Medications Acetaminophen (Acetaminophen 325 Mg Tablet) 650 mg PO Q6H PRN PRN Reason: Pain, Mild (Pain Scale 1-3) Aspirin (Aspirin Enteric Coated 81 Mg Tablet.) 162 mg PO DAILY [facility] Last Admin: 06/09/22 08:20 Dose: 162 mg Documented By: NEEMA Carvedilol (Carvedilol 3.125 Mg Tablet) 6.5 mg PO BID [facility]; Protocol Last Admin: 06/09/22 08:20 Dose: 6.5 mg Documented By: NEEMA Enoxaparin Sodium (Enoxaparin Sodium 30 Mg/0.3 Ml Syringe) 30 mg SUBCUT Q24H [facility] Last Admin: 06/09/22 03:17 Dose: Not Given Documented By: NURIS Non-Admin Reason: Patient Refused Glucose (Glucose Gel 15 Gm Gel..Gram.) 15 gm PO Q15M PRN; Protocol PRN Reason: per Hypoglycemia Standing Ord. Hydralazine HCl (Hydralazine Hcl 50 Mg Tablet) 50 mg PO BID [facility]; Protocol Last Admin: 06/09/22 08:21 Dose: 50 mg Documented By: NEEMA Hydromorphone HCl (Hydromorphone Hcl 0.5 Mg/0.5 Ml Syringe) 0.25 mg IVPUSH Q4H PRN; Protocol PRN Reason: Pain, Severe (Pain Scale 7-10) Last Admin: 06/09/22 09:21 Dose: 0.25 mg Documented By: NEEMA Dextrose (D10) 250 mls @ 750 mls/hr IV Q15M PRN; Protocol PRN Reason: per Hypoglycemia Standing Ord. Insulin Glargine (Insulin Glargine,Hum.Rec.Anlog 100 Unit/Ml 10 Ml Vial) 6 unit SUBCUT BEDTIME [facility] Last Admin: 06/08/22 21:44 Dose: Not Given Documented By: NURIS Non-Admin Reason: Patient Refused Insulin Human Lispro (Insulin Lispro 100 Unit/Ml 3 Ml Vial) 0.1 - 10 unit SUBCUT QIDACHS [facility]; Protocol Last Admin: 06/09/22 08:22 Dose: 4 unit Documented By: NEEMA Isosorbide Mononitrate (Isosorbide Mononitrate 30 Mg Tab.Er.24h) 30 mg PO DAILY [facility]; Protocol Last Admin: 06/09/22 08:22 Dose: 30 mg Documented By: NEEMA Melatonin (Melatonin 3 Mg Tablet) 6 mg PO BEDTIME PRN PRN Reason: Insomnia Nifedipine (Nifedipine Er 30 Mg Tab.Er.24) 30 mg PO DAILY [facility]; Protocol Last Admin: 06/09/22 08:22 Dose: 30 mg Documented By: NEEMA Omeprazole (Omeprazole 20 Mg Capsule.) 20 mg PO DAILY@0630 [facility] Last Admin: 06/09/22 05:44 Dose: Not Given Documented By: NURIS Non-Admin Reason: Patient Refused Ondansetron HCl (Ondansetron Hcl 4 Mg/2 Ml Vial) 4 mg IVPUSH Q8H PRN PRN Reason: Nausea and Vomiting Oxycodone HCl (Oxycodone Hcl Immed Release 5 Mg Tablet) 5 mg PO Q6H PRN PRN Reason: severe pain Pharmacy Consult (Consult Rx Perform Med Rec) 1 each MISCELLANE ONCE PRN PRN Reason: Consult order Sodium Chloride (0.9 % Sodium Chloride Flush 3 Ml Syringe) 3 ml IVFLUSH QSHIFT [facility] Last Admin: 06/09/22 10:33 Dose: 3 ml Documented By: NEEMA Torsemide (Torsemide 20 Mg Tablet) 20 mg PO DAILY [facility]; Protocol Labs 06/09/22 08:53 06/09/22 08:53 Labs: Laboratory Results - last 24 hr 06/08/22 06/08/22 06/08/22 11:29 15:48 15:48 MCV MCH MCHC RDW Plt Count MPV Absolute Nucleated RBC Nucleated RBC % (auto) Anion Gap 11 L Estim Creat Clear Calc 25.8 Estimated GFR 15 POC Glucose 107 Random Glucose 148 H Calcium 8.0 L B-Natriuretic Peptide 2732 H 06/08/22 06/08/22 06/09/22 16:38 21:19 07:33 MCV MCH MCHC RDW Plt Count MPV Absolute Nucleated RBC Nucleated RBC % (auto) Anion Gap Estim Creat Clear Calc Estimated GFR POC Glucose 148 H 171 H 240 H Random Glucose Calcium B-Natriuretic Peptide 06/09/22 06/09/22 06/09/22 08:53 08:53 11:19 MCV 86.8 MCH 27.5 MCHC 31.7 RDW 17.1 H Plt Count 204 MPV 11.7 Absolute Nucleated RBC 0.000 Nucleated RBC % (auto) 0.0 Anion Gap 12 Estim Creat Clear Calc 23.7 Estimated GFR 14 POC Glucose 96 Random Glucose 217 H Calcium 7.8 L B-Natriuretic Peptide Assessment and Plan (1) Anemia in chronic kidney disease (CKD): Status: Acute (2) CHF (congestive heart failure): Status: Acute Plan This is a 31-year-old female with pertinent history of essential hypertension, congestive heart failure with reduced ejection fraction, 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 Acute on chronic congestive heart failure with reduced ejection fraction: Likely due to elevated blood pressure bnp trending down will transition back to po torsedmide (not on med rec but was d/c with it in april) Elevated blood pressure: Given IV labetalol in the ER. Continue home antihypertensives, blood pressure improved. likely noncompliant with meds as previous notes indicate Insulin-dependent diabetes mellitus: continue POCs, SSI, Lantus CKD stage 4: has not followed up with nephrology nephrology consult b/l leg pain US negative for DVT ?r/t edema chronic left foot wound pt reports it is healing, does not appear infected xray without evidence of bone involvement ct pending wean narcotics hyperkalemia k 5.7 on admission resolved Chronic normocytic anemia H/H trending down, likely r/t CKD declining blood transfusion today follow H/H DVT prophylaxis: Lovenox 30 mg daily Full code attending - dr. healy requires ongoing inpatient stay for management of pain requiring IV analgsia, blood pressure monitoring Time Spent With Patient Time: Total time managing care of this patient today ____ minutes. Quality Stroke Does the patient have a stroke diagnosis?: No VTE Prior VTE?: No VTE Risk Level:: Medical - moderate - high VTE Device Contraindication: Treatment Not Indicated VTE Drug Contraindication: N/A - Med Ordered
[2022-06-09 12:00] VITALS: BP 105/52; PULSE 79; RESP 18; TEMP 36.6; O2SAT 97
--- NOTE | 2022-06-09 16:51 | PC.NURSE ---
JOVON Ulloa notified that patient refusing VS and POC. Pt educated on importance of interventions, pt still denies care at this time.
[2022-06-09 20:00] VITALS: BP 118/71; PULSE 86; RESP 16; TEMP 36.6; O2SAT 97
[2022-06-09 20:46] LABS: Glucose, Whole Blood 169 mg/dL (60-115)
[2022-06-09] MEDS: oxyCODONE HCl Immed Release 5 MG TABLET PO (22:03)
[2022-06-09] MEDS: diphenhydrAMINE HCL 50 MG/ML VIAL IVPUSH (22:04)
[2022-06-10 07:23] VITALS: BP 147/80; PULSE 89; RESP 18; TEMP 36.4; O2SAT 93
[2022-06-10 07:31] LABS: Glucose, Whole Blood 115 mg/dL (60-115)
[2022-06-10] MEDS: Isosorbide Mononitrate 30 MG TAB.ER.24H PO (08:44)
[2022-06-10] MEDS: Torsemide 20 MG TABLET PO (08:45)
[2022-06-10] MEDS: Aspirin Enteric Coated 81 MG TABLET.DR 162 MG PO (08:45)
[2022-06-10] MEDS: hydrALAZINE HCl 50 MG TABLET PO ×2 (08:45→23:13)
[2022-06-10] MEDS: NIFEdipine ER 30 MG TAB.ER.24 PO (08:45)
[2022-06-10] MEDS: carvediloL 3.125 MG TABLET 6.5 MG PO ×2 (08:45→23:12)
[2022-06-10] MEDS: 0.9 % Sodium Chloride Flush 3 ML SYRINGE IVFLUSH (08:46)
[2022-06-10] MEDS: oxyCODONE HCl Immed Release 5 MG TABLET PO ×2 (08:56→23:39)
[2022-06-10 11:27] LABS: Glucose, Whole Blood 126 mg/dL (60-115)
[2022-06-10 11:44] VITALS: BP 133/72; PULSE 85; RESP 18; TEMP 36.6; O2SAT 97
[2022-06-10] MEDS: diphenhydrAMINE HCL 25 MG CAPSULE PO (11:49)
--- NOTE | 2022-06-10 12:14 | PM.DS ---
DS: Providers Provider Date of Service: 06/10/22 Date of admission: 06/07/22 03:19 Primary care physician: Abdon Beard MD Consults: 06/09/22 11:30 Consult to Nephrology Routine Consulting Provider: Manjit Bautista Reason for consultation: ckd, uncontrolled bp Has provider been notified: No DS: Diagnosis Discharge Diagnosis (1) Anemia in chronic kidney disease (CKD): Status: Acute (2) CHF (congestive heart failure): Status: Acute DS: Summary Hospital Course Hospital Course: HP as per admitting provider This is a 31-year-old female with pertinent history of essential hypertension, congestive heart failure with reduced ejection fraction, 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 Patient states it has been ongoing for the last 2-3 days.? States she feels like there is fluid in her lungs.? Does under hours orthopnea and bilateral lower extremity edema.? Shortness of breath is worse with exertion.? Patient states she is compliant with her home medications.? Denies fever, chills, cough, palpitations, chest discomfort, abdominal pain, changes in urinary or bowel habits. In the emergency department, patient's blood pressure was found to be elevated and she was given IV labetalol and IV Lasix . Acute on chronic congestive heart failure with reduced ejection fraction Likely due to elevated blood pressure bnp trended down transition back to po torsedmide for home encouraged compliance with medications Elevated blood pressure Continued home antihypertensives, blood pressure improved. likely noncompliant with meds as previous notes indicate Insulin-dependent diabetes mellitus: continue home medications CKD stage 4 has not followed up with nephrology o/p b/l leg pain US negative for DVT r/t edema? chronic left foot wound pt reports it is healing, does not appear infected xray without evidence of bone involvement wound clinic follow up hyperkalemia. Resolved Chronic normocytic anemia. H/H trended down but stable, likely r/t CKD declined blood transfusion Time Spent with Patient Time attestation: Total time managing care of this patient today ____ minutes. Discharge coordination time: Greater than 30 minutes Quality: Safe Use of Opioids Does Pt have an Active Cancer Diagnosis on the Problem List?: No Quality: Stroke Does the patient have a stroke diagnosis?: No Physical Exam Vital Signs: Vital Signs: Last Vital Signs Temp 97.9 F 06/10/22 11:44 Pulse 85 06/10/22 11:44 Resp 18 06/10/22 11:44 BP 133/72 06/10/22 11:44 Pulse Ox 97 06/10/22 11:44 O2 Del Method Room Air 06/10/22 11:44 BMI result Body Mass Index 30.7 Appearing in no acute distress head is normocephalic atraumatic eyes pupils are PERRLA sclera is anicteric mouth throat mucous membranes are intact and moist neck is supple no lymphadenopathy, no JVD noted lung sounds are clear to auscultation heart regular rate rhythm, clear S1, S2 positive bowel sounds, abdomen is soft, nontender neuro patient is alert x3, no focal deficits left charcot foot with chronic wound DS: Data Data Completed and Pending Completed studies during hospitalization [Text1]: Procedures Detachment at Right Foot, Partial 1st Ray, Open Approach (03/01/20) Detachment at Right Foot, Partial 2nd Ray, Open Approach (03/01/20) Detachment at Right Foot, Partial 3rd Ray, Open Approach (03/01/20) Detachment at Right Foot, Partial 4th Ray, Open Approach (03/01/20) Detachment at Right Foot, Partial 5th Ray, Open Approach (03/01/20) Drainage of Right Pleural Cavity, Percutaneous Approach (01/14/21) Insertion of Infusion Device into Superior Vena Cava, Percutaneous Approach (01/14/21) Removal of Infusion Device from Great Vessel, External Approach (01/14/21) Transfusion of Nonautologous Red Blood Cells into Peripheral Vein, Percutaneous Approach (04/22/22) Labs on day of discharge: Laboratory Results - last 24 hr 06/09/22 06/10/22 06/10/22 20:36 07:22 11:14 POC Glucose 169 H 115 126 H Discharge Plan Discharge Anticipated Discharge Date/Time: 06/12/22 16:07 Patient Disposition: Home, Self-Care Discharge Diagnosis: Acute on chronic congestive heart failure with reduced ejection fraction Elevated blood pressure Chronic left foot wound Referrals: Abdon Beard MD [Primary Care Provider] - 1 Week Discharge Medications: New torsemide 20 mg Tablet 20 mg PO BEDTIME Qty: 30 0RF Protocol: Hold for SBP< HOLD for SBP < : 90 torsemide 20 mg Tablet 40 mg PO DAILY Qty: 60 0RF Protocol: Hold for SBP< HOLD for SBP < : 90 sodium bicarbonate 650 mg Tablet 650 mg PO BID Qty: 60 0RF Continued acetaminophen 325 mg tablet 650 mg PO Q4H PRN (Reason: Pain) aspirin 81 mg tablet,delayed release (DR/EC) 2 tab PO DAILY pantoprazole 40 mg tablet,delayed release (DR/EC) 1 tab PO DAILY@0630 insulin aspart U-100 [Novolog FlexPen U-100 Insulin] 100 unit/mL (3 mL) insulin pen 2 - 10 unit subcut TID Levemir FlexTouch U-100 Insuln 100 unit/mL (3 mL) insulin pen 8 unit subcut BEDTIME carvedilol 3.125 mg Tablet 6.5 mg PO BID Qty: 60 0RF Protocol: Hold for SBP/HR < HOLD for SBP < : 90 HOLD for HR < : 60 isosorbide mononitrate 30 mg tablet extended release 24 hr 30 mg PO DAILY Qty: 30 0RF nifedipine 30 mg tablet extended release 24hr 30 mg PO DAILY oxycodone 5 mg tablet 5 mg PO Q6H PRN (Reason: severe pain) hydralazine 50 mg tablet 50 mg PO BID Discharge Orders: Discharge Order (Routine); Ordered 06/12/22 Ordered By: Tawny Taylor Diet: Advance to usual diet Activity on Discharge: As tolerated Stand Alone Forms: Patient Portal Discharge page Care Plan Goals: take medications daily as prescribed to avoid returning of heart failure symptoms Health Concerns: Heart failure with reduced ejection fraction Elevated blood pressure Chronic left foot wound Plan of Treatment: Follow-up with primary care provider as needed Take all medications as prescribed Assessment: see discharge summary
[2022-06-10 12:25] LABS: Hematocrit 25.1 % (37.0-47.0); Hemoglobin 7.9 g/dl (12.0-16.0); Mean Corpuscular HGB Conc 31.5 g/dl (31.0-35.0); Mean Corpuscular Hemoglobin 27.5 pg (27.0-33.0); Mean Corpuscular Volume 87.5 fL (80.0-98.0); Mean Platelet Volume 11.3 fL (9.4-12.3); Platelet Count 206 X10*3/uL (160-400); Red Blood Count 2.87 X10*6/uL (4.20-5.50); Red Cell Distribution Width 17.4 % (11.0-16.0); White Blood Count 5.4 X10*3/uL (4.8-10.8)
--- NOTE | 2022-06-10 12:37 | MHC.CM.PN ---
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
[2022-06-10 13:09] LABS: Anion Gap 13 (12-20); Blood Urea Nitrogen 61 mg/dL (9-16); Calcium 7.4 mg/dL (8.4-10.2); Carbon Dioxide 19 mmol/L (22-29); Chloride 109 mmol/L (96-108); Estimated Glomerular Filt Rate 11; Glucose Random 129 mg/dL (60-115); Potassium 4.7 mmol/L (3.3-5.1); Sodium 136 mmol/L (135-145)
--- NOTE | 2022-06-10 14:29 | P.PNIM_ITS ---
Subjective Subjective Date of Service: 06/10/22 Interval History: seen and examined this morning follow up for foot pain, CHF, elevated BP reporting ongoing pain in left foot denies sob, chest pain, abdominal pain Review of Systems Review of Systems: Yes all other systems are reviewed and are negative Constitutional Constitutional: Denies chills and Denies fever(s) Cardiovascular Cardiovascular: Denies chest pain, Denies palpitations and Denies dyspnea Respiratory Respiratory: Denies cough and Denies dyspnea Endocrine Endocrine: Denies palpitations Physical Exam Vital Signs: Vital Signs: Last Vital Signs Temp 97.9 F 06/10/22 11:44 Pulse 85 06/10/22 11:44 Resp 18 06/10/22 11:44 BP 133/72 06/10/22 11:44 Pulse Ox 97 06/10/22 11:44 O2 Del Method Room Air 06/10/22 11:44 BMI result Body Mass Index 30.7 Appearing in no acute distress lung sounds are clear to auscultation heart regular rate rhythm, clear S1, S2 positive bowel sounds, abdomen is soft, nontender neuro patient is alert x3, no focal deficits Objective Data Active Medications Acetaminophen (Acetaminophen 325 Mg Tablet) 650 mg PO Q6H PRN PRN Reason: Pain, Mild (Pain Scale 1-3) Aspirin (Aspirin Enteric Coated 81 Mg Tablet.) 162 mg PO DAILY [facility] Last Admin: 06/10/22 08:45 Dose: 162 mg Documented By: CLEM Carvedilol (Carvedilol 3.125 Mg Tablet) 6.5 mg PO BID [facility]; Protocol Last Admin: 06/10/22 08:45 Dose: 6.5 mg Documented By: CLEM Enoxaparin Sodium (Enoxaparin Sodium 30 Mg/0.3 Ml Syringe) 30 mg SUBCUT Q24H [facility] Last Admin: 06/10/22 02:54 Dose: Not Given Documented By: TIFF Non-Admin Reason: Patient Refused Glucose (Glucose Gel 15 Gm Gel..Gram.) 15 gm PO Q15M PRN; Protocol PRN Reason: per Hypoglycemia Standing Ord. Hydralazine HCl (Hydralazine Hcl 50 Mg Tablet) 50 mg PO BID [facility]; Protocol Last Admin: 06/10/22 08:45 Dose: 50 mg Documented By: CLEM Dextrose (D10) 250 mls @ 750 mls/hr IV Q15M PRN; Protocol PRN Reason: per Hypoglycemia Standing Ord. Insulin Glargine (Insulin Glargine,Hum.Rec.Anlog 100 Unit/Ml 10 Ml Vial) 6 unit SUBCUT BEDTIME [facility] Last Admin: 06/09/22 21:07 Dose: Not Given Documented By: TIFF Non-Admin Reason: Patient Refused Insulin Human Lispro (Insulin Lispro 100 Unit/Ml 3 Ml Vial) 0.1 - 10 unit SUBCUT QIDACHS [facility]; Protocol Last Admin: 06/10/22 11:38 Dose: Not Given Documented By: CLEM Non-Admin Reason: No Insulin Coverage Isosorbide Mononitrate (Isosorbide Mononitrate 30 Mg Tab.Er.24h) 30 mg PO DAILY [facility]; Protocol Last Admin: 06/10/22 08:44 Dose: 30 mg Documented By: CLEM Melatonin (Melatonin 3 Mg Tablet) 6 mg PO BEDTIME PRN PRN Reason: Insomnia Nifedipine (Nifedipine Er 30 Mg Tab.Er.24) 30 mg PO DAILY [facility]; Protocol Last Admin: 06/10/22 08:45 Dose: 30 mg Documented By: CLEM Omeprazole (Omeprazole 20 Mg Capsule.Dr) 20 mg PO DAILY@0630 [facility] Last Admin: 06/10/22 05:43 Dose: Not Given Documented By: TIFF Non-Admin Reason: Patient Refused Ondansetron HCl (Ondansetron Hcl 4 Mg/2 Ml Vial) 4 mg IVPUSH Q8H PRN PRN Reason: Nausea and Vomiting Oxycodone HCl (Oxycodone Hcl Immed Release 5 Mg Tablet) 5 mg PO Q6H PRN PRN Reason: severe pain Last Admin: 06/10/22 08:56 Dose: 5 mg Documented By: CLEM Pharmacy Consult (Consult Rx Perform Med Rec) 1 each MISCELLANE ONCE PRN PRN Reason: Consult order Sodium Chloride (0.9 % Sodium Chloride Flush 3 Ml Syringe) 3 ml IVFLUSH QSHIFT [facility] Last Admin: 06/10/22 08:46 Dose: 3 ml Documented By: CLEM Torsemide (Torsemide 20 Mg Tablet) 20 mg PO DAILY [facility]; Protocol Last Admin: 06/10/22 08:45 Dose: 20 mg Documented By: CLEM Labs 06/10/22 12:16 06/10/22 12:19 Labs: Laboratory Results - last 24 hr 06/09/22 06/10/22 06/10/22 20:36 07:22 11:14 MCV MCH MCHC RDW Plt Count MPV Absolute Nucleated RBC Nucleated RBC % (auto) Anion Gap Estim Creat Clear Calc Estimated GFR POC Glucose 169 H 115 126 H Random Glucose Calcium Blood Type Antibody Screen 06/10/22 06/10/22 06/10/22 12:16 12:17 12:19 MCV 87.5 MCH 27.5 MCHC 31.5 RDW 17.4 H Plt Count 206 MPV 11.3 Absolute Nucleated RBC 0.000 Nucleated RBC % (auto) 0.0 Anion Gap 13 Estim Creat Clear Calc 20.0 Estimated GFR 11 POC Glucose Random Glucose 129 H Calcium 7.4 L Blood Type A Positive Antibody Screen NEGATIVE Assessment and Plan (1) Anemia in chronic kidney disease (CKD): Status: Acute (2) CHF (congestive heart failure): Status: Acute Plan This is a 31-year-old female with pertinent history of essential hypertension, congestive heart failure with reduced ejection fraction, 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 Acute on chronic congestive heart failure with reduced ejection fraction Likely due to elevated blood pressure bnp trending down will transition back to po torsedmide (not on med rec but was d/c with it in april) Elevated blood pressure: Given IV labetalol in the ER. Continue home antihypertensives, blood pressure improved. likely noncompliant with meds as previous notes indicate Insulin-dependent diabetes mellitus continue POCs, SSI, Lantus CKD stage 4 has not followed up with nephrology nephrology consult b/l leg pain US negative for DVT ?r/t edema chronic left foot wound pt reports it is healing, does not appear infected xray without evidence of bone involvement ct pending wean narcotics hyperkalemia k 5.7 on admission resolved Chronic normocytic anemia H/H trending down, likely r/t CKD declining blood transfusion today follow H/H DVT prophylaxis: Lovenox 30 mg daily Full code attending - dr. Mlapah requires ongoing inpatient stay for management of pain requiring IV analgesia, blood pressure monitoring Time Spent With Patient Time: Total time managing care of this patient today ____ minutes. Quality Stroke Does the patient have a stroke diagnosis?: No VTE Prior VTE?: No VTE Risk Level:: Medical - moderate - high VTE Device Contraindication: Treatment Not Indicated VTE Drug Contraindication: N/A - Med Ordered
[2022-06-10 15:21] VITALS: BP 115/60; PULSE 82; RESP 17; TEMP 36.4; O2SAT 97
--- NOTE | 2022-06-10 16:08 | PM.CNNEP ---
History of Present Illness Reason for Consult Consult date: 06/10/22 Requesting physician: Contreras Blanton Chief Complaint Chief complaint: MYNOR on CKD History of Present Illness Narrative: Shereen is a 31 yo female admitted with pulm edema, anasarca, CHF and worsening kidney function. 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 She has been diabetic since age11 and reportedly has type II DM associated with retinopathy, neuropathy, nephropathy and small vessel disease resulting in TMA in the past. Interestingly, her insight into her renal disease is quite poor and she tells me she has not seen a health and safety manager though there is clear documentation she has been seen since at least 2020. She has nephrotic syndrome associated with her renal disease. This admission, with diuresis her creat is up to 4.4 from 04/30 last month when she had a very similar presentation. She has had 3 c-sections and she tells me her last was last year and delivery was at [facility]. I will review records there. She has poorly controlled HTN and an EF of 45%. On presentation, she is also found to have a diabetic foot ulcer. Review of Systems Review of Systems Yes all other systems are reviewed and are negative Constitutional: Reports no additional constitutional complaints, Denies chills and Denies fever(s) Cardiovascular: Denies chest pain, Reports dyspnea on exertion and Reports orthopnea Respiratory: Denies cough and Reports dyspnea on exertion Gastrointestinal: Reports no additional gastrointestinal complaints and Denies abdominal pain Musculoskeletal: Reports no additional musculoskeletal complaints Reports system reviewed and no additional complaints, except as documented [facility] Past Medical History Medical History (Updated 06/10/22 @ 16:16 by Lisa Harris MD) Abnormal finding on echocardiogram Acute dyspnea Acute worsening of stage 3 chronic kidney disease MYNOR (acute kidney injury) Anemia Asthma Back pain Blind right eye Bone infection Cellulitis Cellulitis and abscess of foot delivery delivered Chest pain CHF (congestive heart failure) (~06/07/22) CKD (chronic kidney disease) Depression with anxiety Diabetes Diabetic retinopathy DM foot ulcer Elevated troponin Essential hypertension Fever Generalized edema HTN (hypertension) Hypertension (~06/10/22) Migraine Osteomyelitis PAD (peripheral artery disease) Pleural effusion test positive test positive Sepsis Severe anemia Tachycardia Type 2 diabetes mellitus with hyperglycemia, with long-term current use of insulin Family History Family History Mother Coronary artery disease Myocardial infarction Stroke Diabetes mellitus Father Myocardial infarction Surgical History Surgical History History of transmetatarsal amputation of foot S/P transmetatarsal amputation of foot Social History Social History Household Members: Significant Other Household Members Other:: Sister, [id number], nephew Housing: Apartment Do you presently have visiting nurse or other home services: No Alcohol intake: never Patient Tobacco Use Status: Never used Tobacco Smoked in Last 30 Days: No e-Cigarette/Vaping Use: Never Used Second Hand Smoke Exposure: No Use of substances other than those prescribed or required for medical reasons: No Currently Displaying Signs/Symptoms of Drug Intoxication Withdrawal: No Have you been hit, kicked, punched, or otherwise hurt by someone within the past year? If so, by whom?: No Do you feel safe in your current relationship?: Yes Is there a partner from a previous relationship who is making you feel unsafe now?: No Are you made to feel afraid or neglected: No Advance Directives: No Advance Directives Information Provided: Yes Advance Directives Date on File: 03/08/20 Do you have thoughts of harming others: None Do you have a plan to hurt others: No Plan Recently lost weight without trying: No Nutrition Risks: No Nutritional Risk Patient : No : No Poor oral hygiene: No service: No Current occupational status: disabled Gender identity: Female Meds Allergies Allergy/AdvReac Type Severity Reaction Status Date / Time morphine [MORPHINE] Allergy Intermediate Itching Verified 05/10/22 15:55 azithromycin [From Zithromax] Allergy Hives Verified 05/10/22 15:55 gabapentin Allergy Facial Verified 05/10/22 15:55 Swelling tramadol Allergy Facial Verified 05/10/22 15:55 Swelling vancomycin Allergy Hives Verified 05/10/22 15:55 Active Medications: Current Medications Acetaminophen (Acetaminophen 325 Mg Tablet) 650 mg PO Q6H PRN PRN Reason: Pain, Mild (Pain Scale 1-3) Aspirin (Aspirin Enteric Coated 81 Mg Tablet.) 162 mg PO DAILY [facility] Last Admin: 06/10/22 08:45 Dose: 162 mg Carvedilol (Carvedilol 3.125 Mg Tablet) 6.5 mg PO BID [facility]; Protocol Last Admin: 06/10/22 08:45 Dose: 6.5 mg Glucose (Glucose Gel 15 Gm Gel..Gram.) 15 gm PO Q15M PRN; Protocol PRN Reason: per Hypoglycemia Standing Ord. Hydralazine HCl (Hydralazine Hcl 50 Mg Tablet) 50 mg PO BID [facility]; Protocol Last Admin: 06/10/22 08:45 Dose: 50 mg Dextrose (D10) 250 mls @ 750 mls/hr IV Q15M PRN; Protocol PRN Reason: per Hypoglycemia Standing Ord. Insulin Glargine (Insulin Glargine,Hum.Rec.Anlog 100 Unit/Ml 10 Ml Vial) 6 unit SUBCUT BEDTIME [facility] Last Admin: 06/09/22 21:07 Dose: Not Given Insulin Human Lispro (Insulin Lispro 100 Unit/Ml 3 Ml Vial) 0.1 - 10 unit SUBCUT QIDACHS [facility]; Protocol Last Admin: 06/10/22 11:38 Dose: Not Given Isosorbide Mononitrate (Isosorbide Mononitrate 30 Mg Tab.Er.24h) 30 mg PO DAILY [facility]; Protocol Last Admin: 06/10/22 08:44 Dose: 30 mg Melatonin (Melatonin 3 Mg Tablet) 6 mg PO BEDTIME PRN PRN Reason: Insomnia Nifedipine (Nifedipine Er 30 Mg Tab.Er.24) 30 mg PO DAILY [facility]; Protocol Last Admin: 06/10/22 08:45 Dose: 30 mg Omeprazole (Omeprazole 20 Mg Capsule.Dr) 20 mg PO DAILY@0630 [facility] Last Admin: 06/10/22 05:43 Dose: Not Given Ondansetron HCl (Ondansetron Hcl 4 Mg/2 Ml Vial) 4 mg IVPUSH Q8H PRN PRN Reason: Nausea and Vomiting Oxycodone HCl (Oxycodone Hcl Immed Release 5 Mg Tablet) 5 mg PO Q6H PRN PRN Reason: severe pain Last Admin: 06/10/22 08:56 Dose: 5 mg Pharmacy Consult (Consult Rx Perform Med Rec) 1 each MISCELLANE ONCE PRN PRN Reason: Consult order Sodium Chloride (0.9 % Sodium Chloride Flush 3 Ml Syringe) [address] [facility] Last Admin: 06/10/22 08:46 Dose: 3 ml Torsemide (Torsemide 20 Mg Tablet) 20 mg PO DAILY [facility]; Protocol Last Admin: 06/10/22 08:45 Dose: 20 mg Home Medications Medication Instructions Recorded Confirmed Last Taken Type acetaminophen 325 mg tablet 650 mg PO Q4H PRN Pain 04/01/22 06/07/22 Unknown History aspirin 81 mg tablet,delayed 2 tab PO DAILY 04/01/22 06/07/22 2 Days Ago History release ~04/20/22 pantoprazole 40 mg tablet,delayed 1 tab PO DAILY@0630 04/01/22 06/07/22 2 Days Ago History release ~04/20/22 insulin aspart U-100 100 unit/mL 2 - 10 unit subcut TID 05/10/22 06/07/22 Unknown History (3 mL) subcutaneous pen (Novolog FlexPen U-100 Insulin aspart) insulin detemir U-100 100 unit/mL 8 unit subcut BEDTIME 05/10/22 06/07/22 Unknown History (3 mL) subcutaneous pen (Levemir FlexTouch U-100 Insulin) hydralazine 50 mg tablet 50 mg PO BID 06/07/22 06/07/22 Unknown History nifedipine 30 mg tablet,extended 30 mg PO DAILY 06/07/22 06/07/22 Unknown History release 24 hr oxycodone 5 mg tablet 5 mg PO Q6H PRN severe pain 06/07/22 06/07/22 Unknown History Physical Exam Vital Signs: Last Vital Signs Temp 97.5 F 06/10/22 15:21 Pulse 82 06/10/22 15:21 Resp 17 06/10/22 15:21 BP 115/60 06/10/22 15:21 Pulse Ox 97 06/10/22 15:21 O2 Del Method Room Air 06/10/22 15:21 BMI result Body Mass Index 30.7 Const General: alert and awake Nutritional Appearance: overweight Orientation/consciousness: patient oriented x3 Eyes Other: right eye blind Neck Other: supple Chest Other: clear Resp Effort & Inspection: normal respiratory effort, able to speak in complete sentences, no respiratory distress and no use of accessory muscles Auscultation: clear to auscultation bilaterally Cardio Rate: regular rate Heart sounds: S1 normal heart sound present and S2 normal heart sound present GI Inspection: No distended Palpation (GI): Soft to palpation and nontender Skin Other: plantar aspect left foot shallow wound, no erythema, no drainage (pt reports wound is improving) Neuro General: patient oriented x3 and CN's II-XI intact bilaterally Extrem Other: b/l leg swelling. no erythema. TMA on left Psych Other: Flat affect Poor insight Results Lab Results 06/10/22 12:16 06/10/22 12:19 Lab results: Chemistry 06/08/22 06/09/22 06/10/22 15:48 08:53 12:19 Sodium 134 L 135 136 Potassium 4.4 4.2 4.7 Carbon Dioxide 21 L 19 L 19 L BUN 49 H 52 H 61 H Creatinine 3.42 H 3.73 H 4.43 H* Calcium 8.0 L 7.8 L 7.4 L Hematology 06/09/22 06/10/22 08:53 12:16 WBC 4.9 5.4 Hgb 7.7 L 7.9 L Plt Count 204 206 Assessment and Plan (1) CKD (chronic kidney disease): Status: Acute (2) MYNOR (acute kidney injury): Status: Acute (3) Anemia in chronic kidney disease (CKD): Status: Acute (4) CHF (congestive heart failure): Status: Acute (5) Hypertension: Status: Acute (6) DM foot ulcer: Status: Acute Plan 31 yo woman with progressive now stage 4/5 CKD with nephrotic syndrome. Most likely DKD. I will review prior serologic workup. She is approaching need to prepare for dialysis and also should be evaluation for possible future transplantation. She has poor insight into her disease. Bp high on presentation now a bit low and would reduce nifedipine to 30 mg daily to allow higher renal perfusion pressure as MYNOR likely reflects impaired autoregulation in the face of drop in BP and diuresis.Possible component of ATN due to foot infection. Anemia: likely iron deficient: check iron stores; as well as anemic of CKD Recommend: Reduce nifedipne to 30 mg daily Continue torsemide and increase to 40 am and 20 pm For type IV RTA, add sodium bicarb 650 bid check iron stores-will need to replete prior to VIPUL Consider repeat renal US or at least do post void bladder scan to rule out RASCON/neurogenic bladder Time Spent With Patient Time: Total time managing care of this patient today _30___ minutes. Procedures Date of Service Date of Service: 06/10/22
[2022-06-10 16:35] LABS: Glucose, Whole Blood 172 mg/dL (60-115)
[2022-06-10 19:56] VITALS: BP 132/67; PULSE 84; RESP 17; TEMP 36.4; O2SAT 94
[2022-06-10 20:28] LABS: Glucose, Whole Blood 219 mg/dL (60-115)
--- NOTE | 2022-06-10 22:49 | PC.NURSE ---
Pt refused head to toe assessment, 2100 meds including insulin coverage for 219 blood sugar. Pt at times refused to answer any questions.
[2022-06-10] MEDS: Insulin Glargine,Hum.rec.anlog 100 UNIT/ML 10 ML VIAL 6 UNIT SUBCUT (23:29)
[2022-06-10] MEDS: diphenhydrAMINE HCL 50 MG/ML VIAL IVPUSH (23:40)
--- NOTE | 2022-06-10 23:47 | PC.NURSE ---
Pt took 2100 meds except Insulin Lispro.
[2022-06-11] MEDS: 0.9 % Sodium Chloride Flush 3 ML SYRINGE IVFLUSH (00:14)
[2022-06-11 07:47] LABS: Glucose, Whole Blood 86 mg/dL (60-115)
[2022-06-11 07:51] VITALS: BP 170/82; PULSE 86; RESP 18; TEMP 36.7; O2SAT 97
[2022-06-11] MEDS: oxyCODONE HCl Immed Release 5 MG TABLET PO ×2 (09:00→21:35)
[2022-06-11] MEDS: Torsemide 20 MG TABLET PO (09:01)
[2022-06-11] MEDS: hydrALAZINE HCl 50 MG TABLET PO ×2 (09:01→21:31)
[2022-06-11] MEDS: Isosorbide Mononitrate 30 MG TAB.ER.24H PO (09:01)
[2022-06-11] MEDS: Aspirin Enteric Coated 81 MG TABLET.DR 162 MG PO (09:01)
[2022-06-11] MEDS: NIFEdipine ER 30 MG TAB.ER.24 PO (09:01)
[2022-06-11] MEDS: carvediloL 3.125 MG TABLET 6.5 MG PO ×2 (09:02→21:31)
[2022-06-11 11:10] LABS: Blood Urea Nitrogen 59 mg/dL (9-16); Calcium 7.9 mg/dL (8.4-10.2); Creatinine Clr Calc Pharmacy 21.4; Estimated Glomerular Filt Rate 12; Glucose Random 81 mg/dL (60-115)
[2022-06-11 11:16] LABS: Anion Gap 16 (12-20); Carbon Dioxide 15 mmol/L (22-29); Chloride 110 mmol/L (96-108); Potassium 4.7 mmol/L (3.3-5.1); Sodium 136 mmol/L (135-145)
[2022-06-11 11:18] LABS: Glucose, Whole Blood 100 mg/dL (60-115)
--- NOTE | 2022-06-11 12:37 | P.PNIM_ITS ---
Subjective Subjective Date of Service: 06/11/22 Interval History: seen and examined this morning follow up for foot pain, CHF, elevated BP reporting ongoing pain in left foot denies sob, chest pain, abdominal pain Review of Systems Review of Systems: Yes all other systems are reviewed and are negative Constitutional Constitutional: Denies chills and Denies fever(s) Cardiovascular Cardiovascular: Denies chest pain, Denies palpitations and Denies dyspnea Respiratory Respiratory: Denies cough and Denies dyspnea Endocrine Endocrine: Denies palpitations Physical Exam Vital Signs: Vital Signs: Last Vital Signs Temp 98.1 F 06/11/22 07:51 Pulse 86 06/11/22 07:51 Resp 18 06/11/22 07:51 BP 170/82 H 06/11/22 07:51 Pulse Ox 97 06/11/22 07:51 O2 Del Method Room Air 06/11/22 07:51 BMI result Body Mass Index 30.7 Appearing in no acute distress lung sounds are clear to auscultation heart regular rate rhythm, clear S1, S2 positive bowel sounds, abdomen is soft, nontender neuro patient is alert x3, no focal deficits charcot foot Objective Data Active Medications Acetaminophen (Acetaminophen 325 Mg Tablet) 650 mg PO Q6H PRN PRN Reason: Pain, Mild (Pain Scale 1-3) Aspirin (Aspirin Enteric Coated 81 Mg Tablet.) 162 mg PO DAILY [facility] Last Admin: 06/11/22 09:01 Dose: 162 mg Documented By: HAIM Carvedilol (Carvedilol 3.125 Mg Tablet) 6.5 mg PO BID [facility]; Protocol Last Admin: 06/11/22 09:02 Dose: 6.5 mg Documented By: HAIM Comments: Glucose (Glucose Gel 15 Gm Gel..Gram.) 15 gm PO Q15M PRN; Protocol PRN Reason: per Hypoglycemia Standing Ord. Heparin Sodium (Porcine) (Heparin Sodium,Porcine 5,000 Unit/Ml Vial) 5,000 unit SUBCUT Q12H [facility] Last Admin: 06/11/22 09:08 Dose: Not Given Documented By: HAIM Non-Admin Reason: Patient Refused Hydralazine HCl (Hydralazine Hcl 50 Mg Tablet) 50 mg PO BID [facility]; Protocol Last Admin: 06/11/22 09:01 Dose: 50 mg Documented By: HAIM Dextrose (D10) 250 mls @ 750 mls/hr IV Q15M PRN; Protocol PRN Reason: per Hypoglycemia Standing Ord. Insulin Glargine (Insulin Glargine,Hum.Rec.Anlog 100 Unit/Ml 10 Ml Vial) 6 unit SUBCUT BEDTIME [facility] Last Admin: 06/10/22 23:29 Dose: 6 unit Documented By: CARROLL Insulin Human Lispro (Insulin Lispro 100 Unit/Ml 3 Ml Vial) 0.1 - 10 unit SUBCUT QIDACHS [facility]; Protocol Last Admin: 06/11/22 11:31 Dose: Not Given Documented By: HAIM Non-Admin Reason: No Insulin Coverage Isosorbide Mononitrate (Isosorbide Mononitrate 30 Mg Tab.Er.24h) 30 mg PO DAILY [facility]; Protocol Last Admin: 06/11/22 09:01 Dose: 30 mg Documented By: HAIM Melatonin (Melatonin 3 Mg Tablet) 6 mg PO BEDTIME PRN PRN Reason: Insomnia Nifedipine (Nifedipine Er 30 Mg Tab.Er.24) 30 mg PO DAILY [facility]; Protocol Last Admin: 06/11/22 09:01 Dose: 30 mg Documented By: HAIM Omeprazole (Omeprazole 20 Mg Capsule.Dr) 20 mg PO DAILY@0630 [facility] Last Admin: 06/11/22 05:52 Dose: Not Given Documented By: CARROLL Non-Admin Reason: Patient Refused Ondansetron HCl (Ondansetron Hcl 4 Mg/2 Ml Vial) 4 mg IVPUSH Q8H PRN PRN Reason: Nausea and Vomiting Oxycodone HCl (Oxycodone Hcl Immed Release 5 Mg Tablet) 5 mg PO Q6H PRN PRN Reason: severe pain Last Admin: 06/11/22 09:00 Dose: 5 mg Documented By: HAIM Pharmacy Consult (Consult Rx Perform Med Rec) 1 each MISCELLANE ONCE PRN PRN Reason: Consult order Sodium Bicarbonate (Sodium Bicarbonate 650 Mg Tablet) 650 mg PO BID [facility] Sodium Chloride (0.9 % Sodium Chloride Flush 3 Ml Syringe) 3 ml IVFLUSH QSHIFT [facility] Last Admin: 06/11/22 10:39 Dose: Not Given Documented By: HAIM Non-Admin Reason: Patient Refused Torsemide (Torsemide 20 Mg Tablet) 20 mg PO BEDTIME [facility]; Protocol Torsemide (Torsemide 20 Mg Tablet) 40 mg PO DAILY [facility]; Protocol Labs 06/10/22 12:16 06/11/22 10:22 Labs: Laboratory Results - last 24 hr 06/10/22 06/10/22 06/10/22 12:17 12:19 16:31 Anion Gap 13 Estim Creat Clear Calc 20.0 Estimated GFR 11 POC Glucose 172 H Random Glucose 129 H Calcium 7.4 L Blood Type A Positive Antibody Screen NEGATIVE 06/10/22 06/11/22 06/11/22 19:59 07:26 10:22 Anion Gap 16 Estim Creat Clear Calc 21.4 Estimated GFR 12 POC Glucose 219 H 86 Random Glucose 81 Calcium 7.9 L D Blood Type Antibody Screen 06/11/22 06/11/22 10:22 11:08 Anion Gap Cancelled Estim Creat Clear Calc Cancelled Estimated GFR Cancelled POC Glucose 100 Random Glucose Cancelled Calcium Cancelled Blood Type Antibody Screen Assessment and Plan (1) Anemia in chronic kidney disease (CKD): Status: Acute (2) CHF (congestive heart failure): Status: Acute Plan This is a 31-year-old female with pertinent history of essential hypertension, congestive heart failure with reduced ejection fraction, 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 MYNOR on CKD stage 4 has not followed up with nephrology nephrology following rec>nabicarb BID renal ultrasound pending anemia likely secondary to ckd check iron studies Acute on chronic congestive heart failure with reduced ejection fraction Resolved Likely due to elevated blood pressure bnp trending down torsedmide 40mg daily, 20mg hs Elevated blood pressure: Given IV labetalol in the ER. continue hydralazine, coreg and nifedipine Insulin-dependent diabetes mellitus continue POCs, SSI, Lantus b/l leg pain US negative for DVT ?r/t edema chronic left foot wound pt reports it is healing, does not appear infected xray without evidence of bone involvement ct pending wean narcotics hyperkalemia k 5.7 on admission resolved Chronic normocytic anemia H/H trending down, likely r/t CKD declining blood transfusion today follow H/H DVT prophylaxis: heparin Full code attending - dr. Blanton requires ongoing inpatient stay for management of pain requiring IV analgesia, blood pressure monitoring Time Spent With Patient Time: Total time managing care of this patient today ____ minutes. Quality Stroke Does the patient have a stroke diagnosis?: No VTE Prior VTE?: No VTE Risk Level:: Medical - moderate - high VTE Device Contraindication: Treatment Not Indicated VTE Drug Contraindication: N/A - Med Ordered
[2022-06-11] MEDS: diphenhydrAMINE HCl 12.5 MG/5 ML LIQUID PO ×2 (13:40→21:30)
--- NOTE | 2022-06-11 15:36 | P.PNNP_ITS ---
Subjective Subjective Date of Service: 06/11/22 Interval history: seen and examined this morning follow up for ADVANCED PROTEINURIC CKD reporting ongoing pain in left foot denies sob, chest pain, abdominal pain Physical Exam Vital Signs: Vital Signs: Last Vital Signs Temp 98.1 F 06/11/22 07:51 Pulse 86 06/11/22 07:51 Resp 18 06/11/22 07:51 BP 170/82 H 06/11/22 07:51 Pulse Ox 97 06/11/22 07:51 O2 Del Method Room Air 06/11/22 07:51 BMI result Body Mass Index 30.7 Const: General: alert and awake Nutritional Appearance: overweight Orientation/consciousness: patient oriented x3 Eyes: Other: right eye blind Neck: Other: supple Chest: Other: clear Resp: Effort & Inspection: normal respiratory effort, able to speak in complete sentences, no respiratory distress and no use of accessory muscles Auscultation: clear to auscultation bilaterally Cardio: Rate: regular rate Heart sounds: S1 normal heart sound present and S2 normal heart sound present GI: Inspection: No distended Palpation (GI): Soft to palpation and nontender Skin: Other: plantar aspect left foot shallow wound, no erythema, no drainage (pt reports wound is improving) Neuro: General: patient oriented x3 and CN's II-XI intact bilaterally Extrem: Other: b/l leg swelling. no erythema. TMA on left Psych: Other: Flat affect Poor insight Objective Data Labs 06/10/22 12:16 06/11/22 10:22 Labs: Laboratory Results - last 24 hr 06/10/22 06/10/22 06/11/22 16:31 19:59 07:26 Sodium Potassium Chloride Carbon Dioxide Anion Gap BUN Creatinine Estim Creat Clear Calc Estimated GFR POC Glucose 172 H 219 H 86 Random Glucose Calcium 06/11/22 06/11/22 06/11/22 10:22 10:22 11:08 Sodium 136 Cancelled Potassium 4.7 Cancelled Chloride 110 H Cancelled Carbon Dioxide 15 L Cancelled Anion Gap 16 Cancelled BUN 59 H Cancelled Creatinine 4.12 H* Cancelled Estim Creat Clear Calc 21.4 Cancelled Estimated GFR 12 Cancelled POC Glucose 100 Random Glucose 81 Cancelled Calcium 7.9 L D Cancelled Procedures Date of Service Date of Service: 06/11/22 Assessment & Plan Assessment and plan (1) MYNOR (acute kidney injury): Status: Acute (2) CKD (chronic kidney disease): Status: Acute Assessment and Plan: sTAGE 4/5 ckd -PROTEINURIC, LIKELY DKD; HAS NOT HAD RENAL BIOPSY' NONCOMPLIANT WITH RENAL F/U (3) Anemia in chronic kidney disease (CKD): Status: Acute Assessment and Plan: CHECK IRON, B12 FOLIC STORES AND IF REPLETE, START EPOGN (4) Hypertension: Status: Acute (5) DM foot ulcer: Status: Acute Plan 31 yo woman with progressive now stage 4/5 CKD with nephrotic syndrome. Most likely DKD. I will review prior serologic workup. She is approaching need to prepare for dialysis and also should be evaluation for possible future transpl antation. She has poor insight into her disease. Bp high on presentation now a bit low and would reduce nifedipine to 30 mg daily to allow higher renal perfusion pressure as MYNOR likely reflects impaired autoregulation in the face of drop in BP and diuresis.Possible component of ATN due to foot infection. Anemia: likely iron deficient: check iron stores; as well as anemic of CKD Recommend: Reduce nifedipne to 30 mg daily Continue torsemide and increase to 40 am and 20 pm For type IV RTA, add sodium bicarb 650 bid check iron stores-will need to replete prior to VIPUL Consider repeat renal US or at least do post void bladder scan to rule out RASCON/neurogenic bladder Time Spent With Patient Time: Total time managing care of this patient today ____ minutes. Progress Note: Quality Stroke Does the patient have a stroke diagnosis?: No
[2022-06-11 15:57] VITALS: BP 169/79; PULSE 96; RESP 17; TEMP 36.1; O2SAT 96
[2022-06-11 16:29] LABS: Glucose, Whole Blood 148 mg/dL (60-115)
[2022-06-11 19:36] VITALS: BP 116/56; PULSE 92; RESP 17; TEMP 36.3; O2SAT 93
[2022-06-11] MEDS: Insulin Glargine,Hum.rec.anlog 100 UNIT/ML 10 ML VIAL 6 UNIT SUBCUT (20:06)
[2022-06-11] MEDS: Insulin Lispro 100 UNIT/ML 3 ML VIAL SUBCUT (20:07)
[2022-06-11] MEDS: Sodium Bicarbonate 650 MG TABLET PO (20:11)
[2022-06-11] MEDS: Heparin Sodium,Porcine 5,000 UNIT/ML VIAL 5000 UNIT SUBCUT (20:11)
[2022-06-11 20:27] LABS: Glucose, Whole Blood 226 mg/dL (60-115)
[2022-06-11] MEDS: Melatonin 3 MG TABLET 6 MG PO (21:30)
[2022-06-12 07:25] VITALS: BP 135/75; PULSE 84; RESP 16; TEMP 36.8; O2SAT 96
[2022-06-12 07:58] LABS: Glucose, Whole Blood 94 mg/dL (60-115)
[2022-06-12] MEDS: Aspirin Enteric Coated 81 MG TABLET.DR 162 MG PO (08:37)
[2022-06-12] MEDS: carvediloL 3.125 MG TABLET 6.5 MG PO (08:37)
[2022-06-12] MEDS: Sodium Bicarbonate 650 MG TABLET PO (08:38)
[2022-06-12] MEDS: Isosorbide Mononitrate 30 MG TAB.ER.24H PO (08:38)
[2022-06-12] MEDS: Torsemide 20 MG TABLET 40 MG PO (08:38)
[2022-06-12] MEDS: hydrALAZINE HCl 50 MG TABLET PO (08:39)
[2022-06-12] MEDS: NIFEdipine ER 30 MG TAB.ER.24 PO (08:39)
[2022-06-12] MEDS: 0.9 % Sodium Chloride Flush 3 ML SYRINGE IVFLUSH (08:39)
--- NOTE | 2022-06-12 09:06 | PC.NURSE ---
Pt refused AM biophysical assessment. Pt educated on importance of monitoring different body systems, pt continues to decline assessment. Will reaproach at later time.
[2022-06-12 10:57] LABS: Anion Gap 12 (12-20); Blood Urea Nitrogen 58 mg/dL (9-16); Carbon Dioxide 19 mmol/L (22-29); Chloride 109 mmol/L (96-108); Creatinine Clr Calc Pharmacy 22.9; Estimated Glomerular Filt Rate 13; Glucose Random 152 mg/dL (60-115); Potassium 4.9 mmol/L (3.3-5.1); Sodium 135 mmol/L (135-145)
[2022-06-12 10:58] LABS: Iron 21 mcg/dL (30-160); Percent Iron Saturation 8 % (15-50); Total Iron Binding Capacity 262 mcg/dL (228-428); Unsaturated Iron Binding 241 ug/dL
[2022-06-12 11:19] VITALS: BP 168/79; PULSE 89; RESP 16; TEMP 36.3; O2SAT 95
[2022-06-12 11:36] LABS: Glucose, Whole Blood 145 mg/dL (60-115)
--- NOTE | 2022-06-12 11:39 | P.PNNP_ITS ---
Subjective Subjective Date of Service: 06/15/22 Interval history: Events noted. Lying flat not in distress Physical Exam Vital Signs: Vital Signs: Last Vital Signs Temp 97.3 F 06/12/22 11:19 Pulse 89 06/12/22 11:19 Resp 16 06/12/22 11:19 BP 168/79 H 06/12/22 11:19 Pulse Ox 95 06/12/22 11:19 O2 Del Method Room Air 06/12/22 11:19 BMI result Body Mass Index 30.7 No headache nausea vomiting. No urinary symptoms. On examination Lying flat comfortable Lungs air entry equal. Heart S1-S2 heard no gallop or rub. Abdomen is soft nontender. Neuro alert and awake no asterixis. Leg edema present Const: General: alert and awake Nutritional Appearance: overweight Orientation/consciousness: patient oriented x3 Eyes: Other: right eye blind Neck: Other: supple Chest: Other: clear Resp: Effort & Inspection: normal respiratory effort, able to speak in co mplete sentences, no respiratory distress and no use of accessory muscles Auscultation: clear to auscultation bilaterally Cardio: Rate: regular rate Heart sounds: S1 normal heart sound present and S2 normal heart sound present GI: Inspection: No distended Palpation (GI): Soft to palpation and nontender Skin: Other: plantar aspect left foot shallow wound, no erythema, no drainage (pt reports wound is improving) Neuro: General: patient oriented x3 and CN's II-XI intact bilaterally Extrem: Other: b/l leg swelling. no erythema. TMA on left Psych: Other: Flat affect Poor insight Objective Data Labs 06/10/22 12:16 06/12/22 09:55 Labs: Laboratory Results - last 24 hr 06/11/22 06/11/22 06/11/22 10:22 16:19 19:39 Sodium Cancelled Potassium Cancelled Chloride Cancelled Carbon Dioxide Cancelled Anion Gap Cancelled BUN Cancelled Creatinine Cancelled Estim Creat Clear Calc Cancelled Estimated GFR Cancelled POC Glucose 148 H 226 H Random Glucose Cancelled Calcium Cancelled Iron TIBC % Saturation Unsat Iron Binding 06/12/22 06/12/22 06/12/22 07:28 09:55 09:55 Sodium 135 Potassium 4.9 Chloride 109 H Carbon Dioxide 19 L Anion Gap 12 BUN 58 H Creatinine 3.87 H Estim Creat Clear Calc 22.9 Estimated GFR 13 POC Glucose 94 Random Glucose 152 H Calcium 8.0 L Iron 21 L TIBC 262 % Saturation 8 L Unsat Iron Binding 241 06/12/22 11:22 Sodium Potassium Chloride Carbon Dioxide Anion Gap BUN Creatinine Estim Creat Clear Calc Estimated GFR POC Glucose 145 H Random Glucose Calcium Iron TIBC % Saturation Unsat Iron Binding Procedures Date of Service Date of Service: 06/12/22 Assessment & Plan Assessment and plan (1) MYNOR (acute kidney injury): Status: Acute (2) CKD (chronic kidney disease): Status: Acute Assessment and Plan: sTAGE 4/5 ckd -PROTEINURIC, LIKELY DKD; HAS NOT HAD RENAL BIOPSY' NONCOMPLIANT WITH RENAL F/U (3) Anemia in chronic kidney disease (CKD): Status: Acute Assessment and Plan: CHECK IRON, B12 FOLIC STORES AND IF REPLETE, START EPOGN (4) Hypertension: Status: Acute (5) DM foot ulcer: Status: Acute Plan 31 yo woman with progressive now stage 4/5 CKD with nephrotic syndrome. Most likely DKD. . She is approaching need to prepare for dialysis and also should be evaluation for possible future transplantation. She has poor insight into her disease. Bp high on presentation. allow higher renal perfusion pressure as MYNOR likely reflects impaired autoregulation in the face of drop in BP and diuresis.Possible component of ATN due to foot infection. Anemia: likely iron deficient: check iron stores; as well as anemic of CKD Recommend: Optimize blood pressure. Avoid hypotension. Continue torsemide For type IV RTA, add sodium bicarb 650 bid check iron stores-will need to replete prior to VIPUL Consider repeat renal US or at least do post void bladder scan to rule out RASCON/neurogenic bladder No absolute indication for dialysis yet. Time Spent With Patient Time: Total time managing care of this patient today ____ minutes. Progress Note: Quality Stroke Does the patient have a stroke diagnosis?: No
[2022-06-12] MEDS: oxyCODONE HCl Immed Release 5 MG TABLET PO (12:54)
[2022-06-12 15:22] VITALS: BP 170/90; PULSE 92; RESP 18; TEMP 36.1; O2SAT 98
[2022-06-12 15:49] VITALS: BP 138/78
[2022-06-12 16:35] LABS: Glucose, Whole Blood 133 mg/dL (60-115)
== END 2022-06-12 17:33 | disposition home or self-care (01) | DRG 291 ==
LOC: HO.ED 06-07 01:40 → HO.EDOVER 06-07 03:31 → HO.S3 06-07 07:45
PROVIDERS: Internal Medicine; Physician Assistant Medical; Admitting Provider Student in an Organized Health Care Education/Training Program; Emergency Provider Internal Medicine; PCP Internal Medicine; Visit Provider Nurse Practitioner Acute Care
DX: I13.0 Hypertensive heart and chronic kidney disease with heart failure and stage 1 through stage 4 chronic kidney disease, or unspecified chronic kidney disease (principal); I50.23 Acute on chronic systolic (congestive) heart failure; N18.4 Chronic kidney disease, stage 4 (severe); N17.9 Acute kidney failure, unspecified; L97.429 Non-pressure chronic ulcer of left heel and midfoot with unspecified severity; E11.22 Type 2 diabetes mellitus with diabetic chronic kidney disease; E11.51 Type 2 diabetes mellitus with diabetic peripheral angiopathy without gangrene; F41.8 Other specified anxiety disorders; E87.5 Hyperkalemia; E11.40 Type 2 diabetes mellitus with diabetic neuropathy, unspecified; D50.9 Iron deficiency anemia, unspecified; D63.1 Anemia in chronic kidney disease; E11.610 Type 2 diabetes mellitus with diabetic neuropathic arthropathy; E11.621 Type 2 diabetes mellitus with foot ulcer; H54.8 Legal blindness, as defined in USA; Z20.822 Contact with and (suspected) exposure to COVID-19; Z88.5 Allergy status to narcotic agent; Z91.199 Patient's noncompliance with other medical treatment and regimen due to unspecified reason; Z79.82 Long term (current) use of aspirin; Z79.4 Long term (current) use of insulin; Z79.899 Other long term (current) drug therapy
CPT/HCPCS: 36415; 71045; 73620; 73700; 76775; 80048; 80053; 82947; 83540; 83880; 84484; 85025; 85027; 85610; 85652; 85730; 86140; 86850; 86900; 86901; 87635; 93005; 93970; 99285; J1170; J1200; J1643; J1940; J2405

== ENCOUNTER 2022-07-06 15:59 | Inpatient (IN) | payer OTHER, SELFPAY ==
[2022-07-06] VITALS (14 sets, daily range): BP systolic 167–211; BP diastolic 88–133; PULSE 87–108; RESP 15–20; TEMP 36.3–37.2; O2SAT 97–99; BMI 30.7
--- NOTE | ~2022-07-06 | XR_ITS ---
EXAMINATION: XR TIBIA AND FIBULA, RIGHT CLINICAL INFORMATION: Pain and swelling COMPARISON: 01/05/2022 TECHNIQUE: AP and lateral views of the right tibia and fibula were obtained. FINDINGS: No fracture or cortical disruption. Appropriate alignment of the knee and ankle. Diffuse soft tissue swelling. No osseous erosions. XR/XR tibia fibula RT 2V IMPRESSION: Diffuse soft tissue swelling. No fracture or malalignment.
--- NOTE | ~2022-07-06 | CT_ITS ---
EXAMINATION: CT brain without contrast. CT chest, abdomen and pelvis without contrast. CLINICAL INDICATIONS: Pain in lower abdomen, severe headache and hypertension and chest pain on deep inspiration. COMPARISON: CT brain 03/31/2022, CT chest 01/05/2022. And CT abdomen pelvis 04/22/2021 TECHNIQUE: 5 mm thin axial and reformatted 2 mm thin sagittal and coronal images of brain were obtained without contrast. Subsequently 5 mm thin axial and reformatted 3 mm thin sagittal and coronal images of chest, abdomen and pelvis were obtained without contrast. DLP 2187. This CT examination was performed using dose optimization technique as appropriate, variously including the following: Automated exposure control Adjustment of MA and/or KV according to patient size(this includes techniques or standardized protocols for targeted exams where dose is matched to indication/reason for exam; extremities or head. Use of iterative reconstruction techniques. FINDINGS: Brain: There is no acute intra-axial, extra-axial bleed, masses or midline shift. There is no acute infarction evolution. There is no edema. The lateral ventricles are symmetrical in size and configuration without enlargement. Bone windows reveal no calvarial abnormality. There is no scalp soft tissue abnormality either. Bilateral paranasal sinuses and mastoid air cells are well-aerated and clear. There is moderate patient motion seen on the skull base images. Chest, LUNGS: The lungs are expanded with small pulmonary nodules.. 3 mm pulmonary nodule right upper lobe image 127/534, 4 mm nodule right upper lobe anterior segment image 148/26, 2 nodule right middle lobe axial image 235/26 and a 4 mm nodule right lower lobe axial image 298/26 are stable. There is a 3 mm subpleural nodule left lower lobe axial image 336/26, 2 mm nodule left lower lobe axial image 322/26 are better visualized on the present exam. Patient had left lower lobe consolidation and the previous CT Pleura: There is moderate right and small left pleural effusion. No calcified pleural plaques or thickening seen. There is no pneumothorax. Mediastinum: Thyroid lobes are symmetric and normal. Central trachea and the bronchi are widely patent. No abnormal size mediastinal or hilar lymph nodes seen. There is a small pericardial effusion. No coronary artery calcification seen. Axilla: There is no abnormal axillary lymph nodes. The chest wall is unremarkable. Osseous structures: No fracture, lytic or sclerotic process. Abdomen and pelvis: Liver, ducts and gallbladder: The liver is homogeneous in density, normal size and contour. No focal lesion or intrahepatic ductal dilatation seen. The gallbladder has been surgically removed. Spleen: Unremarkable. Pancreas: Unremarkable. Adrenal glands: Unremarkable. Kidneys and ureters: Both kidneys are normal size, shape and position. There are several vascular calcifications in the renal hilum. No hydronephrosis. Minimal bilateral perinephric stranding. Lymphovascular structures: Abdominal aorta is normal caliber. There are small shotty lymph nodes in the aortic caval region and a larger lymph node measuring 1.4 cm and left para-aortic region image 43/30 GI tract: There is scattered stool and gas seen throughout the colon without distention. The small bowel loops are normal caliber. Stomach is nondistended. Appendix is not visualized with certainty. There is no free fluid or free air. Abdominal wall: There is diffuse abdominal wall edema. No evidence of hernia. Pelvis: The bladder is is distended with high attenuation urine. It measures 26 Hounsfield units. There is no free fluid or free air. No abnormal inguinal lymph nodes. The uterus is anteverted and appears unremarkable. Osseous structures: There is endplate sclerosis L2/L5 disc levels no acute fracture or lytic process seen. CT/CT abdomen pelvis wo IV con IMPRESSION: 1. No acute intracranial process seen. 2. Bilateral pulmonary nodules are stable. Left lower lobe consolidation has resolved. 3. Moderate right and small left pleural effusion. 4. Small pericardial effusion. 5. Diffuse abdominal wall edema. 6. High attenuation urine in the bladder. Correlate with urine analysis. 7. Mild constipation without obstruction.
--- NOTE | ~2022-07-06 | US_ITS ---
EXAMINATION: US VENOUS ULTRASOUND WITH DOPPLER LOWER EXTREMITY, RIGHT CLINICAL INFORMATION: Leg swelling. COMPARISON: Right lower extremity DVT study done on 07/06/2022. TECHNIQUE: Ultrasound of the deep veins is performed from the hip to the calf with compression sonography and color and pulse Doppler assessment. Spectral analysis with color-flow imaging is performed. FINDINGS: There is normal venous compression and respiratory variation and augmented flow. The visualized common femoral vein, superficial femoral vein, profunda femoral vein, popliteal vein, and the trifurcation region shows no evidence of deep venous thrombosis. There is no significant popliteal fossa cyst. Previously suspected partial thrombus within the right posterior tibial vein is not reproduced in the current study. US/US venous duplex LE RT IMPRESSION: No DVT demonstrated in the right lower extremity.
--- NOTE | ~2022-07-06 | US_ITS ---
EXAMINATION: US VENOUS ULTRASOUND WITH DOPPLER LOWER EXTREMITY, RIGHT CLINICAL INFORMATION: Numbness, right lower extremity swelling COMPARISON: Bilateral lower extremity duplex on 06/07/2022 TECHNIQUE: Ultrasound of the deep veins is performed from the hip to the calf with compression sonography and color and pulse Doppler assessment. Spectral analysis with color-flow imaging is performed. FINDINGS: There is normal venous compression and respiratory variation and augmented flow. The visualized common femoral vein, superficial femoral vein, profunda femoral vein, popliteal vein, and the trifurcation region shows no evidence of deep venous thrombosis. There is no significant popliteal fossa cyst. There is possible nonocclusive thrombus in the right posterior tibial vein. If the patient's symptoms persist, followup ultrasound in 5 days 7 days might be of value to exclude proximal propagation. US/US venous duplex LE RT IMPRESSION: Possible nonocclusive thrombus in the right posterior tibial vein.
--- NOTE | ~2022-07-06 | US_ITS ---
EXAMINATION: NONINVASIVE ASSESSMENT OF THE ARTERIES OF THE RIGHT LOWER EXTREMITIES INCLUDING THE RIGHT LOWER EXTREMITY DUPLEX. CLINICAL INFORMATION: Numbness, right lower extremity swelling COMPARISON: None TECHNIQUE: duplex Doppler techniques with wave form analysis and measurement of velocities in the common femoral, profunda femoral, superficial femoral, popliteal, tibial and peroneal arteries. The study was performed only at rest. FINDINGS: RIGHT LEG Common femoral artery: 99 cm/s, Multiphasic Profunda femoris artery: 79 cm/s, Multiphasic Superficial femoral artery (proximal): 118 cm/s, Multiphasic Superficial femoral artery (mid): 132 cm/s, Multiphasic Superficial femoral artery (distal): 15 cm/s, Multiphasic Proximal Popliteal artery: 80 cm/s, Multiphasic Mid posterior tibial artery: 34 cm/s, Multiphasic US/US arterial duplex LE RT IMPRESSION: No hemodynamically significant stenosis in the right lower extremity.
--- NOTE | 2022-07-06 16:12 | ED_ITS ---
HPI - General Adult General Chief complaint: General Medical Stated complaint: leg pain Time Seen by Provider: 07/06/22 17:36 Source: patient Mode of arrival: EMS History of Present Illness HPI narrative: 31-year-old female with complaint of bilateral leg pain and swelling that she states all started today and that the right is worse than the left. She denies any traumatic injury and denies any fevers or chills and states that she knows that she has a headache because of her high blood pressure. She has also been changing the dressing on the bottom of her left foot patient also reports lower abdominal discomfort that started today. She however denies any nausea or vomiting Related Data Home Medications Medication Instructions Recorded Confirmed acetaminophen 325 mg tablet 650 mg PO Q4H PRN Pain 04/01/22 06/07/22 aspirin 81 mg tablet,delayed 2 tab PO DAILY 04/01/22 06/07/22 release pantoprazole 40 mg tablet,delayed 1 tab PO DAILY@0630 04/01/22 06/07/22 release insulin aspart U-100 100 unit/mL 2 - 10 unit subcut TID 05/10/22 06/07/22 (3 mL) subcutaneous pen (Novolog FlexPen U-100 Insulin aspart) insulin detemir U-100 100 unit/mL 8 unit subcut BEDTIME 05/10/22 06/07/22 (3 mL) subcutaneous pen (Levemir FlexTouch U-100 Insulin) hydralazine 50 mg tablet 50 mg PO BID 06/07/22 06/07/22 nifedipine 30 mg tablet,extended 30 mg PO DAILY 06/07/22 06/07/22 release 24 hr oxycodone 5 mg tablet 5 mg PO Q6H PRN severe pain 06/07/22 06/07/22 Previous Rx's Medication Instructions Recorded carvedilol 3.125 mg tablet 6.5 mg PO BID #60 tabs 05/14/22 isosorbide mononitrate 30 mg 30 mg PO DAILY #30 tabs 05/14/22 tablet,extended release 24 hr sodium bicarbonate 650 mg tablet 650 mg PO BID #60 tabs 06/12/22 torsemide 20 mg tablet 20 mg PO BEDTIME #30 tabs 06/12/22 torsemide 20 mg tablet 40 mg PO DAILY #60 tabs 06/12/22 Allergies Allergy/AdvReac Type Severity Reaction Status Date / Time morphine [MORPHINE] Allergy Intermediate Itching Verified 07/06/22 16:17 azithromycin [From Zithromax] Allergy Hives Verified 07/06/22 16:17 gabapentin Allergy Facial Verified 07/06/22 16:17 Swelling tramadol Allergy Facial Verified 07/06/22 16:17 Swelling vancomycin Allergy Hives Verified 07/06/22 16:17 Review of Systems Review of Systems: Pertinent positives and negatives as stated in HPI [facility] Past Medical History Source: nursing notes reviewed Medical History Abnormal finding on echocardiogram Acute dyspnea Acute worsening of stage 3 chronic kidney disease MYNOR (acute kidney injury) Anemia Anemia in chronic kidney disease (CKD) Asthma Back pain Blind right eye Bone infection Cellulitis Cellulitis and abscess of foot delivery delivered Chest pain CHF (congestive heart failure) (~06/07/22) CKD (chronic kidney disease) CKD (chronic kidney disease) Depression with anxiety Diabetes Diabetic retinopathy DM foot ulcer Elevated troponin Essential hypertension Fever Generalized edema HTN (hypertension) Hypertension (~06/10/22) Migraine Osteomyelitis PAD (peripheral artery disease) Pleural effusion test positive test positive Sepsis Severe anemia Tachycardia Type 2 diabetes mellitus with hyperglycemia, with long-term current use of insulin Surgical History History of transmetatarsal amputation of foot S/P transmetatarsal amputation of foot Family History Family History Mother Coronary artery disease Myocardial infarction Stroke Diabetes mellitus Father Myocardial infarction Social History Social History Household Members: Significant Other Household Members Other:: Sister, [id number], nephew Housing: Apartment Do you presently have visiting nurse or other home services: No Alcohol intake: never Patient Tobacco Use Status: Never used Tobacco Smoked in Last 30 Days: No e-Cigarette/Vaping Use: Never Used Second Hand Smoke Exposure: No Use of substances other than those prescribed or required for medical reasons: No Advance Directives: No Advance Directives Information Provided: No Advance Directives Date on File: 03/08/20 service: No Current occupational status: disabled Gender identity: Female Physical Exam ED Vital Signs: Vital Signs - 24 hr 07/06/22 16:12 05/11/23 17:30 07/06/22 17:52 Temperature 98.5 F 98.9 F Pulse Rate 98 105 H 108 H Respiratory Rate 20 17 Blood Pressure 193/110 H 211/133 H 211/119 H Pulse Oximetry 97 97 Oxygen Delivery Method Room Air Room Air 07/06/22 18:05 07/06/22 18:20 07/06/22 18:35 Temperature Pulse Rate 101 H 99 98 Respiratory Rate 18 18 Blood Pressure 200/123 H 185/101 H 193/113 H Pulse Oximetry 99 99 Oxygen Delivery Method Room Air Room Air 07/06/22 18:45 07/06/22 19:12 Temperature Pulse Rate 95 93 Respiratory Rate 18 15 Blood Pressure 180/102 H 186/109 H Pulse Oximetry 97 Oxygen Delivery Method Room Air BMI result Body Mass Index 30.7 VITAL SIGNS: Reviewed. GENERAL: Well developed, well nourished, in no acute distress. HEAD: Normocephalic/atraumatic EYES: OD-complete blindness, OS-almost completely blind but EOMI EARS: Ext canals without abnormality NOSE: Nares patent bilateral OROPHARYNX: no oral lesions noted, posterior pharynx clear NECK: Supple, no adenopathy LUNGS: Normal breath sounds. No adventitious sounds or accessory muscle use. SpO2<97> CARDIOVASCULAR: Regular rate and rhythm without noted murmurs, no JVD but patient has bilateral lower extremity edema, right greater than left ABDOMEN: Soft, primarily pain in the lower abdomen, non-distended with bowel sounds. MUSCULOSKELETAL: No tenderness, deformities, or effusions noted on gross inspection. EXTREMITIES: No cyanosis, RLE: There is extensive swelling in induration with pitting up to the knee, patient has clearly had a previous TMA,LLE: There is less swelling and induration to this extremity, but there is a noted nondraining ulcer to the plantar surface of the midfoot SKIN: Inspection of the skin reveals no rashes NEUROLOGIC: Alert and oriented x 3. Strength and sensation to light touch were grossly intact x 4. Course Course Course Narrative: This is an RME: Additional HPI, ROS, PE not included below will be deferred to primary provider. 31 year old female with PMH of CHF, HTN, DM, migraines presents to the ED with right lower extremity pain and swelling X1 day. Patient reports she has been in the car all day and she is now additionally experiencing numbness and tingling of the right LE. Patient additionally endorses severe MENDIOLA. Patient reports CP with deep breaths. Denies drug and alcohol abuse. PE: erythema and edema to right lower extremity, decreased sensation, hypertensive at 193/110, cerebellar intact Plan: Labs, venous/arterial duplex, imaging Medications Administered Discontinued Medications Generic Name Dose Route Start Last Admin Trade Name Brandon PRN Reason Stop Dose Admin Furosemide 80 mg 07/06/22 18:42 07/06/22 19:11 Furosemide 100 Mg/10 Ml Vial IVPUSH 07/06/22 18:43 80 mg ONCE ONE Administration Protocol Labetalol HCl 5 mg 07/06/22 17:45 07/06/22 17:50 Labetalol Hcl 100 Mg/20 Ml Vial IVPUSH 07/06/22 17:46 5 mg ONCE ONE Administration Labetalol HCl 10 mg 07/06/22 18:21 07/06/22 18:35 Labetalol Hcl 100 Mg/20 Ml Vial IVPUSH 07/06/22 18:22 10 mg ONCE ONE Administration Ondansetron HCl 4 mg 07/06/22 17:45 07/06/22 17:50 Ondansetron Hcl 4 Mg/2 Ml Vial IVPUSH 07/06/22 17:46 4 mg ONCE ONE Administration Medical Decision Making Medical Decision Making [facility] Narrative: 1822: 31-year-old female with history and clinical presentation concerning for possible arterial or venous compromise. Patient is noted to have hypertensive emergency, a total of 15 mg of labetalol was administered as well as 80 mg of Lasix. Additionally, patient received 1 nitro and pain medication 1944:I reviewed all investigations and my interpretation is as patient has hypertensive emergency with pulmonary edema and suspect that lower extremity edema is primarily due to fluid overload but there is obviously an additional component of edema to the right lower extremity secondary to nonocclusive thrombus in the PTV. Given patient's extensive past medical history we will empirically treat with weight based dose of Lovenox daily instead of twice daily given renal function. The discuss of patient with the inpatient hospitalist who accepts admission. Differential Diagnosis Please see the discussion above Consult Healthcare Provider Management of the patient was discussed with: Hospitalist Please see the discussion above Lab Data Please see the discussion above 07/06/22 17:34 07/06/22 17:34 Labs: Lab Results 07/06/22 07/06/22 07/06/22 Range/Units 17:29 17:34 17:34 WBC 5.9 (4.8-10.8) X10*3/uL RBC 3.44 L (4.20-5.50) X10*6/uL Hgb 8.8 L (12.0-16.0) g/dl Hct 28.2 L (37.0-47.0) % MCV 82.0 (80.0-98.0) fL MCH 25.6 L (27.0-33.0) pg MCHC 31.2 (31.0-35.0) g/dl RDW 17.2 H (11.0-16.0) % Plt Count 220 (160-400) X10*3/uL MPV 11.7 (9.4-12.3) fL Immature Gran % (Auto) 0.3 (0.0-0.4) % Neut % (Auto) 78.6 H (45-73) % Lymph % (Auto) 11.9 L (20-40) % [place] % (Auto) 6.1 (2-11) % Eos % (Auto) 2.4 (0-4) % Baso % (Auto) 0.7 (0-2) % Lymph # (Auto) 0.7 L (1.2-4.9) X10*3/uL [place] # (Auto) 0.4 (0.1-1.2) X10*3/uL Eos # (Auto) 0.1 (0.0-0.4) X10*3/uL Baso # (Auto) 0.0 (0.0-0.2) X10*3/uL Abs Immat Gran (auto) 0.02 (0.00-0.03) X10*3/uL Absolute Neuts (auto) 4.6 (2.0-8.3) x10*3/uL Absolute Nucleated RBC 0.000 (0.0-0.012) X10*3/uL Nucleated RBC % (auto) 0.0 (0.0-0.2) /100WBC D-Dimer High Sensitivty 977 NG/ML POC Glucose 110 (60-115) mg/dL Lactic Acid (0.5-2.0) mmol/L B-Natriuretic Peptide (<100) pg/mL 07/06/22 07/06/22 Range/Units 17:34 19:27 WBC (4.8-10.8) X10*3/uL RBC (4.20-5.50) X10*6/uL Hgb (12.0-16.0) g/dl Hct (37.0-47.0) % MCV (80.0-98.0) fL MCH (27.0-33.0) pg MCHC (31.0-35.0) g/dl RDW (11.0-16.0) % Plt Count (160-400) X10*3/uL MPV (9.4-12.3) fL Immature Gran % (Auto) (0.0-0.4) % Neut % (Auto) (45-73) % Lymph % (Auto) (20-40) % [place] % (Auto) (2-11) % Eos % (Auto) (0-4) % Baso % (Auto) (0-2) % Lymph # (Auto) (1.2-4.9) X10*3/uL [place] # (Auto) (0.1-1.2) X10*3/uL Eos # (Auto) (0.0-0.4) X10*3/uL Baso # (Auto) (0.0-0.2) X10*3/uL Abs Immat Gran (auto) (0.00-0.03) X10*3/uL Absolute Neuts (auto) (2.0-8.3) x10*3/uL Absolute Nucleated RBC (0.0-0.012) X10*3/uL Nucleated RBC % (auto) (0.0-0.2) /100WBC D-Dimer High Sensitivty NG/ML POC Glucose (60-115) mg/dL Lactic Acid 0.8 (0.5-2.0) mmol/L B-Natriuretic Peptide 2883 H (<100) pg/mL Discharge Plan Discharge Clinical Impression: Hypertensive emergency, Pulmonary edema, DVT (deep venous thrombosis) Patient Disposition: Admitted As Inpatient Prescriptions: No Action acetaminophen 325 mg tablet 650 mg PO Q4H PRN (Reason: Pain) aspirin 81 mg tablet,delayed release (DR/EC) 2 tab PO DAILY pantoprazole 40 mg tablet,delayed release (DR/EC) 1 tab PO DAILY@0630 insulin aspart U-100 [Novolog FlexPen U-100 Insulin] 100 unit/mL (3 mL) insulin pen 2 - 10 unit subcut TID Levemir FlexTouch U-100 Insuln 100 unit/mL (3 mL) insulin pen 8 unit subcut BEDTIME carvedilol 3.125 mg Tablet 6.5 mg PO BID Qty: 60 0RF Protocol: Hold for SBP/HR < HOLD for SBP < : 90 HOLD for HR < : 60 isosorbide mononitrate 30 mg tablet extended release 24 hr 30 mg PO DAILY Qty: 30 0RF nifedipine 30 mg tablet extended release 24hr 30 mg PO DAILY oxycodone 5 mg tablet 5 mg PO Q6H PRN (Reason: severe pain) hydralazine 50 mg tablet 50 mg PO BID torsemide 20 mg Tablet 20 mg PO BEDTIME Qty: 30 0RF Protocol: Hold for SBP< HOLD for SBP < : 90 torsemide 20 mg Tablet 40 mg PO DAILY Qty: 60 0RF Protocol: Hold for SBP< HOLD for SBP < : 90 sodium bicarbonate 650 mg Tablet 650 mg PO BID Qty: 60 0RF
--- NOTE | 2022-07-06 17:38 | PC.NURSE ---
Patient on stretcher, airway open and patent, no difficulty/labored breathing. Pt groaning in pain, stating that her head hurts like crazy. Pt also complaining of right leg and abdomen. Pt a&ox4. Skin slightly pale for ethnicity, warm, and dry. Lung sounds clr and equal bilaterally both left and right. Heart sounds normal. Bowel sounds present all re[place]. Abdomen appears fluid filled, soft and tender upon palpation. Pt reports pain 10/10. Pt had an episode of vomiting, that pt reports is the first time she has vomited today.
[2022-07-06 17:40] LABS: MANUAL DIFF FLAG NO
[2022-07-06 17:50] LABS: D Dimer High Sensitivity 977 NG/ML
[2022-07-06] MEDS: ondansetron HCL 4 MG/2 ML VIAL IVPUSH (17:50)
[2022-07-06] MEDS: Labetalol HCL 100 MG/20 ML VIAL IVPUSH (17:50)
[2022-07-06 17:57] LABS: Basophils Percent Auto 0.7 % (0-2); Eosinophils Absolute Auto 0.1 X10*3/uL (0.0-0.4); Eosinophils Percent Auto 2.4 % (0-4); Hematocrit 28.2 % (37.0-47.0); Hemoglobin 8.8 g/dl (12.0-16.0); Imm Gran Abs Auto 0.02 X10*3/uL (0.00-0.03); Imm Gran Pct Auto 0.3 % (0.0-0.4); Lymphocytes Absolute Auto 0.7 X10*3/uL (1.2-4.9); Lymphocytes Percent Auto 11.9 % (20-40); Mean Corpuscular HGB Conc 31.2 g/dl (31.0-35.0); Mean Corpuscular Hemoglobin 25.6 pg (27.0-33.0); Mean Platelet Volume 11.7 fL (9.4-12.3); Monocytes Absolute Auto 0.4 X10*3/uL (0.1-1.2); Monocytes Percent Auto 6.1 % (2-11); Neutrophils Absolute Auto 4.6 x10*3/uL (2.0-8.3); Neutrophils Percent Auto 78.6 % (45-73); Platelet Count 220 X10*3/uL (160-400); Red Blood Count 3.44 X10*6/uL (4.20-5.50); Red Cell Distribution Width 17.2 % (11.0-16.0); White Blood Count 5.9 X10*3/uL (4.8-10.8)
--- NOTE | 2022-07-06 17:57 | PC.NURSE ---
Pt has pitting edema in both left and right legs. Pt reports that she has a wound under her left foot that was recently debrided at [facility]. Left wound under foot has no redness, drainaige is clear, slightly pink.
[2022-07-06 18:18] LABS: Glucose, Whole Blood 110 mg/dL (60-115)
[2022-07-06] MEDS: Labetalol HCL 100 MG/20 ML VIAL 10 MG IVPUSH (18:35)
[2022-07-06 18:39] LABS: B Type Natriuretic Peptide 2883 pg/mL (<100)
--- OUTSIDE RECORDS SUMMARY | 2022-07-06 18:42 | XMS_ITS | Continuity of Care Document ---
Author Name Unknown Organization [facility] ter Address [address] [place] [id number] Care Team Providers Care Telescope Maintenance Name Role Phone Chirag CARLSON, Abdon Primary Care Physician Encounter [facility] Date(s): 06/24/22 - 06/28/[address] [id number] Discharge Disposition: A-D/C Home Attending Physician: Mihai Womack MD Admitting Physician: Jessica Garrison MD Referring Physician: Not on Staff, Referring [...] date 5Admin Note: unknown exact date Medications Albuterol (Eqv-ProAir HFA) 90 mcg/inh inhalation aerosol 2 puffs, Inhalation, Every 4 hours, Maintenance, 03/25/22 22:43:00 EST, Partial fill upon patient request if the prescription is for a schedule II opioid drug. Start Date: 03/25/22 Status: Ordered amLODIPine 10 mg oral tablet 10 mg, 1, tablet, By Mouth, Daily, # 90 tablet, Refills 0, Tot. Refills 0, Maintenance, 06/23/22 9:43:00 EDT, Route to Pharmacy Electronically, [facility]/pharmacy #[id number], Partial fill upon patient request if the prescription is for a schedule II opioid drug.... Start Date: 06/23/22 Status: Ordered amLODIPine 10 mg oral tablet 10 mg, Tablet, By Mouth, 06/28/22 9:00:00 EDT Start Date: 06/28/22 Stop Date: 06/28/22 Status: Completed Aspirin Low Dose 81 mg oral delayed release tablet 1 tablet = 81 mg, By Mouth, Daily, Maintenance, 02/13/22 11:23:00 EST, CR Tablet, ; Start Date: 02/13/22 Status: Ordered Colace sodium 100 mg oral capsule 100 mg, 1, capsule, By Mouth, Daily, PRN, # 100 capsule, Refills 2, Tot. Refills 2, Maintenance, for constipation, 06/23/22 9:49:00 EDT, Route to Pharmacy Electronically, [facility]/pharmacy #[id number], Partial fill upon patient request if the prescription is for... Start Date: 06/23/22 Status: Ordered Coreg 25 mg oral tablet 25 mg, 1, tablet, By Mouth, 2 times a day, # 60 tablet, Refills 0, Tot. Refills 0, Maintenance, 03/29/22 12:11:00 EST, Route to Pharmacy Electronically, [facility]/pharmacy #[id number], Partial fill upon patient request if the prescription is for a schedule II opi... Start Date: 03/29/22 Status: Ordered Coreg 25 mg oral tablet 25 mg, Tablet, By Mouth, 06/27/22 21:00:00 EDT Start Date: 06/27/22 Stop Date: 06/27/22 Status: Completed Coreg 25 mg oral tablet 25 mg, Tablet, By Mouth, 06/28/22 9:00:00 EDT Start Date: 06/28/22 Stop Date: 06/28/22 Status: Completed Crestor 5 mg oral tablet 1 tablet = 5 mg, By Mouth, Daily, # 30 tablet, 0 Refills, Maintenance, 01/19/22 13:30:00 EST, Tablet, [id number], Partial fill upon patient request if the prescription is for a schedule II opioid drug., 160, cm, 01/19/22 8:55:00 EST, Height, 9... Start Date: 01/19/22 Status: Ordered doxycycline hyclate 100 mg oral tablet 1 capsule, By Mouth, Every 12 hours, for 7 days, # 14 capsule, 0 Refills, Acute 06/30/22 9:48:00 EDT, 06/23/22 9:48:00 EDT, Capsule, [id number], Partial fill upon patient request if the prescription is for a schedule II opioid drug., 167.64, c... Start Date: 06/23/22 Stop Date: 06/30/22 Status: Ordered ferrous fumarate 324 mg oral tablet 1 tablet = 324 mg, By Mouth, Daily, # 90 tablet, 0 Refills, Maintenance, 06/23/22 9:49:00 EDT, Tablet, [facility]/pharmacy #[id number], Partial fill upon patient request if the prescription is for a schedule II opioid drug., 167.64, cm, 06/23/22 8:42:00 EDT, Heigh... Start Date: 06/23/22 Status: Ordered Flonase 50 mcg/inh nasal spray 1 sprays, Nares, Both, 2 times a day, # 16 Gm, 0 Refills, Maintenance, 03/10/22 13:15:00 EST, [place], [facility], Partial fill upon patient request if the prescription is for a schedule II opioid drug., 1 sprays Nares, Both 2 times a day,... Start Date: 03/10/22 Status: Ordered hydrALAZINE 25 mg oral tablet 50 mg, Tablet, By Mouth, 06/28/22 9:00:00 EDT Start Date: 06/28/22 Stop Date: 06/28/22 Status: Completed hydrALAZINE 50 mg oral tablet 1 tablet = 50 mg, By Mouth, 3 times a day, # 90 tablet, 2 Refills, Maintenance, 06/23/22 9:42:00 EDT, Tablet, [facility]/pharmacy #[id number], Partial fill upon patient request if the prescription is for a schedule II opioid drug., 167.64, cm, 06/23/22 8:42:00 EDT... Start Date: 06/23/22 Status: Ordered HYDROmorphone 2 mg oral tablet 1 tablet = 2 mg, By Mouth, Every 6 hours, PRN Pain , Severe, # 12 tablet, 0 Refills, Acute 07/02/2319:00:00 EDT, 06/28/22 13:01:00 EDT, Tablet, [facility], Partial fill upon patient request if the prescription is for a schedule II opioi... Start Date: 06/28/22 Stop Date: 07/01/22 Status: Ordered HYDROmorphone 2 mg oral tablet 2 mg, Tablet, By Mouth, Every 6 hours, PRN for Pain , Severe, Routine, 06/26/22 11:30:00 EDT Start Date: 06/26/22 Stop Date: 06/29/22 Status: Discontinued isosorbide mononitrate 30 mg oral tablet, extended release TAKE 1 TABLET BY MOUTH EVERY DAY Start Date: 06/22/22 Status: Ordered pantoprazole 40 mg oral delayed release tablet 1 tablet = 40 mg, By Mouth, Daily, # 90 tablet, 0 Refills, Maintenance, 03/10/22 13:16:00 EST, EC Tablet, 170, cm, 03/10/22 10:58:00 EST, Height, 88, kg, 02/26/22 23:01:00 EST, Dry Weight Start Date: 03/10/22 Status: Ordered Pen Rogers, 31 G x 5 mm BD Ultra [...] each, 0 Refills, Maintenance, 03/10/22 13:17:00 EST, [facility], Partial fill upon patient request if the prescription is for a schedule II opioiddrug., 1 film Topically Every 72 hours, 170, cm, 01... Start Date: 03/10/22 Status: Ordered sodium bicarbonate 650 mg oral tablet 1 tablet = 650 mg, By Mouth, 3 times a day, # 100 tablet, 2 Refills, Maintenance, 06/23/22 9:43:00 EDT, Tablet, [facility]/pharmacy #[id number], Partial fill upon patient request if the prescription is for a schedule II opioid drug., 167.64, cm, 06/23/22 8:42:00 E... Start Date: 06/23/22 Status: Ordered torsemide 20 mg oral tablet 1 tablet = 20 mg, By Mouth, 2 times a day, # 30 tablet, 0 Refills, Maintenance, 03/10/22 13:14:00 EST, Tablet, [facility], Partial fill upon patient request if the prescription is for aschedule II opioid drug., 170, cm, 03/10/22 10:58:0... Start Date: 03/10/22 Status: Ordered Problem List [...] Active Migraine 5 Confirmed Active Care Coordination [facility], Hakan Angel, CC Confirmed Active 1Managed by PCP. WEll controlled. 2Self-manages. States currently stable. No medications. 3Not seem at [facility] since 08/12/2016. Multiple no show in our center. She is seen by other provider Dr Matt Gutierrez by pharmacy records. 4Managed by PCP 5Managed by PCP with Tylenol Results Orders for Microbiology Reports Name Date Anaerobic Culture 06/27/22 Wound Deep Culture w/ Gram Smear (Deep W ound Culture w/ Gram Smear) 06/27/22 Blood Culture 06/24/22 Blood Culture #2 06/24/22 Microbiology Reports TEST:Anaerobic Culture STATUS:Unauthenticated BODY SITE: SOURCE:ULCER1 COLLECTED DATE/TIME:06/27/22 3:00 PM Anaerobic Culture SPECIMEN DESCRIPTION : ULCER FOOT LT SPECIAL REQUESTS : NONE CULTURE : NO ANAEROBES ISOLATED SO FAR. REPORT STATUS : PRELIMINARY REPORT TEST:Deep Wound Culture STATUS:Unauthenticated BODY SITE: SOURCE:ULCER1 COLLECTED DATE/TIME:06/27/22 3:00 PM Deep Wound Culture SPECIMEN DESCRIPTION : ULCER FOOT LT SPECIAL REQUESTS : NONE GRAM STAIN : NO WBC'S SEEN 1+ RBC'S NO ORGANISMS SEEN REPORT STATUS : PRELIMINARY REPORT TEST:Blood Culture, Second Order STATUS:Unauthenticated BODY SITE: SOURCE:Blood COLLECTED DATE/TIME:06/24/22 5:38 PM Blood Culture, Second Order SPECIMEN DESCRIPTION : BLOOD NO SITE SPECIAL REQUESTS : NONE CULTURE : NO GROWTH 4 DAYS REPORT STATUS : PRELIMINARY REPORT TEST:Blood Culture STATUS:Unauthenticated BODY SITE: SOURCE:Blood COLLECTED DATE/TIME:06/24/22 5:05 PM Blood Culture SPECIMEN DESCRIPTION : BLOOD L AC SPECIAL REQUESTS : NONE CULTURE : NO GROWTH 4 DAYS REPORT STATUS : PRELIMINARY REPORT Radiology Reports * Exam Date Time Procedure Performing Provider Status 06/25/22 6:36 AM Abdomen AP Sellers , Camila; Auth (V erified) Notes: (Abdomen AP) Reason For Exam: Nausea/Vomiting RESULT: XR Abdomen AP XR Abdomen AP 1 view INDICATION/CLINICAL QUESTION: Reason: Nausea Vomiting; Clinical Question(s): Obstruction COMPARISON: 03/26/2022. FINDINGS: There is a nonobstructive bowel gas pattern. Free intraperitoneal air cannot be assessed on supine view alone. No organomegaly, masses or calcifications. No acute bone findings. Again seen are the discogenic degenerative changes at L4-L5 with disc spacenarrowing. There are surgical clips in the left upper abdomen. IMPRESSION: There is no evidence of acute pathology. WSN: [id number] Ordering Physician: Jessica Garrison Dictated By: Angeles Pittman MD Dictated Date/Time: 06/25/22 6:46 am Reviewed By: Angeles Pittman MD Signed By: Angeles Pittman MD Signed Date/Time: 06/25/22 6:46 am Transcribed By: ALEXIS Transcribed Date/Time: 06/25/22 6:43 am * Exam Date Time Procedure Performing Provider Status 06/24/22 7:[address] Angio Chest Jody Mcnulty; Auth (Ve rified) Notes: (CT Angio Chest) Reason For Exam: PE suspected, Intermediate prob, positive D-dimer;Other: RESULT: CT Angio Chest EXAMINATION: CT Angio Chest INDICATION: Refer to EMR; Hx of Present Illness: reports sob past couple days, leg swelling. 9 10 miller, r shoulder, rib, and l foot pain. wound on bottom of foot following piece of floor tile getting stuck in foot x1 mo ago. reports improving. d c ystdy s p admit for htn, fluid in lungs , leg swelling; Reason: PE suspected, Intermediate prob, positive D-dimer; Clinical Question(s): Pulmonary Embolism TECHNIQUE: Spiral CTA of the chest was performed after rapid IV contrast administration without cardiac gating, triggered by an KECIA on the main pulmonary artery. Images are formatted in multiple planes using 2-D multiplanar and 3-D maximum intensity projection. 50 cc of Omnipaque 300 was administered intravenously. Weight-based protocol using automatic tube modulation was used to optimize exposure parameters. CTDIvol Body: 7.58 mGy, DLP Body: 289 mGy*cm. COMPARISONS: Multiple priors, most recent CTA chest 02/26/2022 ANGIOGRAPHIC FINDINGS: No pulmonary embolism to the subsegmental level. Normal caliber pulmonary arteries. No acute aortic abnormality seen on this study performed without cardiac gating. 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 Trachea and Airways: Patent without evidence of tracheal or endobronchial lesion. Lungs and Pleura: Mild bibasilar atelectasis. Small left pleural effusion, decreased in size from prior exam. Slight decrease in size of moderate right pleural effusion. No pneumothorax. Mediastinum and winston: No mass or hematoma. Unchanged mildly prominent 0.9 cm right paratracheal lymph node (series 301: Image 18). No hilar lymphadenopathy. No esophageal abnormality. Normal thyroid. Heart: Heart is normal in size. Small to moderate pericardial effusion is not significantly changedfrom prior exam. No coronary arterial calcifications. Chest Wall Soft Tissues: Normal. Diaphragm and upper abdomen: No significant abnormality. Bones: No acute abnormality. Old healed fracture of the right eighth lateral rib. IMPRESSION: No CT evidence of pulmonary embolism. No significant change in [id number] pericardial effusion. Small left pleural effusion, decreased in size from prior exam. Slight decrease in size of moderateright pleural effusion. Mild bibasilar atelectasis. I have personally reviewed the images and I agree with this report. WSN: [id number] Ordering Physician: Lala Maya Dictated By: Shanda Vanegas MD Dictated Date/Time: 06/24/22 7:45 pm Reviewed By: Constanza Fofana MD Signed By: Constanza Fofana MD Signed Date/Time: 06/24/22 7:50 pm Transcribed By: ALEXIS Transcribed Date/Time: 06/24/22 7:20 pm * Exam Date Time Procedure Performing Provider Status 06/24/22 6:56 PM Foot Min 3 Views Left Stephen Rm; [facility] (Verified) Notes: (Foot Min 3 Views Left) Reason For Exam: Other: RESULT: Foot Min 3 Views Left Foot Min 3 Views Left, 3 views Hx of Present Illness: reports sob past couple days, leg swelling. 9 10 h a, r shoulder, rib, and lfoot pain. wound on bottom of foot following piece of floor tile getting stuck in foot x1 mo ago. reports improving. d c ystdy s p admit for htn, fluid in lungs , leg swelling; Reason: Other:; Clinical Question(s): Osteomyelitis COMPARISON: 06/22/2022 100 03/12/2022 exam reviewed. FINDINGS: Chronic postsurgical and degenerative changes again noted: Mid shaft amputation first metatarsal. Severe chronic deformity/postoperative change distal fourth metatarsal and IP joint, with moderate, chronic periosteal thickening and bone formation along the shaft of the fourth metatarsal. Mild, chronic periosteal thickening along the shafts of the second and third metatarsals. Amputation fifth digit MTP joint. Severe deformity and sclerosis and partial collapse of the navicular, cuneiforms. Severe chronic deformity of the second and third TMT joint regions. Flattened arch. No findings to suggest acute bony erosion or osteomyelitis. No evidence of deep soft tissue gas, but there is chronic forefoot and plantar soft tissue swelling. In addition, the plantar surface, there is a superficial fibroid or ulceration beneath the posterior midfoot. IMPRESSION: No findings of osteomyelitis or other acute bony abnormality. Superficial plantar ulcer without evidence of radiopaque foreign matter. WSN: [id number] Ordering Physician: Lala Maya Dictated By: Mihai Hernandez MD Dictated Date/Time: 06/24/22 7:11 pm Reviewed By: Mihai Hernandez MD Signed By: Mihai Hernandez MD Signed Date/Time: 06/24/22 7:11 pm Transcribed By: ALEXIS Transcribed Date/Time: 06/24/22 7:05 pm * Exam Date Time Procedure Performing Provider Status 06/24/22 5:25 PM Chest Portable Jovany Padilla; Nicol ( Verified) Notes: (Chest Portable) Reason For Exam: Shortness of Breath RESULT: Chest Portable Chest Portable Reason: Shortness of Breath; Clinical Question(s): CHF COMPARISON: Priors, most recent dated 06/21/2022 FINDINGS: LINES AND TUBES: None. LUNGS AND PLEURA: Redemonstrated is bilateral central vascular congestion and mild perivascular haziness and hazy airspace opacities in bilateral lower lungs. No pleural effusion. No pneumothorax. Slight thickening of the right minor fissure. HEART, MEDIASTINUM AND WINSTON: Prominent cardiac silhouette. Normal mediastinal and hilar contour. BONES AND SOFT TISSUES: No acute abnormality. IMPRESSION: Persistent bilateral central vascular congestion and mild perivascular haziness, especially in the lung bases, suggestive of mild CHF/pulmonary edema. WSN: [id number] Ordering Physician: Lala Maya Dictated By: Constanza Fofana MD Dictated Date/Time: 06/24/22 5:40 pm Reviewed By: Constanza Fofana MD Signed By: Constanza Fofana MD Signed Date/Time: 06/24/22 5:40 pm Transcribed By: ALEXIS Transcribed Date/Time: 06/24/22 5:38 pm Vital Signs Most recent to oldest [Reference Range]: 1 2 3 Height 167.64 cm (06/28/22 7:17 AM) 167.64 cm (06/27/22 8:07 PM) 167.64 cm (06/26/22 8:03 PM) Weight 97.4 kg (06/28/22 5:47 AM) 89.8 kg (06/27/22 5:55 AM) 91.3 kg (06/26/22 5:27 AM) Oxygen Saturation [94-100 %] 100 % (06/28/22 7:17 AM) 98 % (06/27/22 8:07 PM) 100 % (06/27/22 1:00 AM) Pulse Rate [55-90 bpm] 82 bpm (06/28/22 8:58 AM) 82 bpm (06/28/22 7:17 AM) 79 bpm (06/27/22 8:57 PM) Body Mass Index [18.5-24.99 kg/m2] 32.63 kg/m2 *>HHI* (06/25/22 1:17 AM) Blood Pressure [90-138/55-84 mm Hg] 140/65mm Hg *H* (06/28/22 8:58 AM) 140/65mm Hg *H* (06/28/22 8:58 AM) 140/65mm Hg *H* (06/28/22 8:58 AM) Respiratory Rate [16-30 br/min] 18 br/min (06/28/22 9:09 AM) 18 br/min (06/28/22 7:17 AM) 18 br/min (06/28/22 12:40 AM) Temperature [96.8-100.4 DegF] 98.1 DegF (06/28/22 7:17 AM) 97.8 DegF (06/27/22 8:07 PM) 97.4 DegF (06/27/22 1:00 AM) Liters per Minute 2 L/min (06/27/22 1:00 AM) 2 L/min (06/26/22 1:36 PM) 2 L/min (06/26/22 7:56 AM) Mode of Delivery (Oxygen) Room air (06/28/22 7:17 AM) Room air (06/27/22 8:07 PM) Nasal cannula (06/27/22 1:00 AM) Blood pressure sites Arm, left (06/28/22 7:17 AM) Arm, left (06/27/22 8:07 PM) Arm, right (06/26/22 8:03 PM) Temperature Route Temporal (06/28/22 7:17 AM) Temporal (06/27/22 8:07 PM) Temporal (06/27/22 1:00 AM) Dry Weight 91 kg (06/25/22 1:17 AM) Weight Obtained Via Bed scale (06/28/22 5:47 AM) Bed scale (06/27/22 5:55 AM) Bed scale (06/26/22 5:27 AM) Social History Social History Type Response Smoking Status Never (less than 100 in lifetime) entered on: 08/22/21 Sex Admission evaluation note * Melissa Palmer MD: PERFORM, MODIFY, MODIFY Event Display: Admission Note Authored Date: [id number] Patient: ??SHEREEN TAYLOR ? Age:??31 Years?Sex:??Female?:??1990?? Chief Complaint/Reason for Consultation Leg edema, SOB. Hx HF on torsemide w CKD. Low urine output. Frequent admission fo IV diuresis. No other complaints per pt. Blind. History of Present Illness Shereen Taylor is a 31 year old female with PMH of??nonischemic cardiomyopathy, HFrEF EF 40-50%,diabetes, CKD stage IV, asthma, blindness of right eye, CKD stage 4 (advanced diabetic nephropathy)presenting for volume overload. To note she was discharged on 06/23/22. She presented today due to ch est tightness similar to the feeling she normally gets when she is in volume overload. She mentioned taking her medication as prescribed and has noticed more pain and discharge in her left foot wound. ?? ED course: Lab workup without leukocytosis and CTA without evidence of volume overload or pulmonary embolism. xray of her LE without concern for osteomyelitis. She was given Lasix 40mg?? IV once with improvement following. She was found sleeping comfortably at the time of my examination. Review of Systems ROS negative otherwise Objective Measurements?? Weight: 91.7 kg (06/24/22) ?? Vital Signs?? Temperature: 96.8 DegF (06/24/22 22:25:00) Temperature Route: Temporal (06/24/22 22:25:00) Pulse Rate:??94 bpm??High (06/24/22 22:25:00) Respiratory Rate: 18 br/min (06/24/22 22:25:00) Systolic Blood Pressure:??154 mm Hg??High (06/24/22 22::00) Diastolic Blood Pressure:??102 mm Hg??High (06/24/22 22:28:00) Blood pressure sites: Arm, right (06/24/22 22::00) Mean Arterial Pressure: 119 mm Hg (06/24/22 22:28:00) Pulse Pressure: 52 mm Hg (06/24/22 22:28:00) Oxygen Saturation: 100 % (06/24/22 22:25:00) Liters per Minute: 2 L/min (06/24/22 22:25:00) Mode of Delivery (Oxygen): Nasal cannula (06/24/22 22:25:00) Early Warning Score: 2 (04/29/23 22:29:24) ? Physical Exam General: No acute distress HEENT: EOMI, mucous membranes moist CV: Regular rate and rhythm. No murmurs, gallops, rubs Respiratory: All reynolds clear to auscultation bilaterally. No wheezes, rales, rhonchi Abdominal: Soft, nontender. Bowel sounds noted : No suprapubic tenderness Extremities:??Trace lower extremity edema Neuro: AAO x3. Motor 5/5 all extremities. Sensation intact Psych: Affect appropriate Skin: No lesions, wounds, rashes Assessment/Plan Shereen Taylor is a 31 year old female with PMH of??nonischemic cardiomyopathy, HFrEF EF 40-50%,diabetes, CKD stage IV, asthma, blindness of right eye, CKD stage 4 (advanced diabetic nephropathy)presenting for volume overload.? Acute on chronic HFrEF 40-50% Moderate to severe TR CKD stage IV Recent discharged for an acute exacerbation and hypertensive emergency. Little evidence for volume overload but significant improvement after getting IV lasix. She mentions being complian with medication at home. ?? Plan: -Trial Lasix 40mg IV BID as per volume status and renal function -Monitor I+O, daily weights -Continue ASA -Continue carvedilol, hydralazine and Imdur -quality assurance monitor chassis ?? Chronic LLE wound New purulence Patient without fevers or leukocytosis Appears to be some drainage XR L Foot showing:??No findings of osteomyelitis or other acute bony abnormality. Superficial plantar ulcer without evidence of radiopaque foreign matter. ?? Plan: -Consult wound care -Continue Doxycycline till June 30 ? Chronic stable medical conditions Diabetes: patient reports she is not taking insulin at home due to blood sugars within normal range. POC TID and QHS. SSI while inpatient. GERD: continue PPI ?? Quality Measures Diet: Cardiac DVT Prophylaxis: Heparin Code: FULL ?? Patient discussed with attending physician, Dr. Meli Palmer MD PGY2- IM ?? Histories Allergies Allergies ?(Active and Proposed [...] Cardiac disease during , antepartum Care Coordination [facility], Hakan Jeanne, CC CKD (chronic kidney disease), stage III [...] Diabetes mellitus ? Medications Home Medications Albuterol (Albuterol (Eqv-ProAir HFA) 90 mcg/inh inhalation aerosol)?2?puff(s)?Inhalation?Every 4 hours Amlodipine (amLODIPine 10 mg oral tablet)?10?Milligram?1?tablet?By Mouth?Daily Aspirin (Aspirin Low Dose 81 mg oral delayed release tablet)?1?tab(s)?81?Milligram?By Mouth?Daily Carvedilol (Coreg 25 mg oral tablet)?25?Milligram?1?tablet?By Mouth?2 times a day Docusate (Colace sodium 100 mg oral capsule)?100?Milligram?1?capsule?By Mouth?Daily?as needed?for constipation Doxycycline (doxycycline hyclate 100 mg oral tablet)?1?capsule?By Mouth?Every 12 hours?for 7?Days Durable Medical Equipment (Pen Rogers, 31 G x 5 mm BD Ultra Fine III)?See Instructions?for 30?Days?use as directed for Type 2 Diabetes Mellitus Ferrous Fumarate (ferrous fumarate 324 mg oral tablet)?1?tab(s)?324?Milligram?By Mouth?Daily Fluticasone Nasal (Flonase 50 mcg/inh nasal spray)?1?spray(s)?Nares, Both?2 times a day hydrALAZINE (hydrALAZINE 50 mg oral tablet)?1?tab(s)?50?Milligram?By Mouth?3 times a day Isosorbide Mononitrate (isosorbide mononitrate 30 mg oral tablet, extended release)?TAKE 1 TABLET BY MOUTH EVERY DAY Metoclopramide (Reglan 5 mg oral tablet)?1?tab(s)?5?Milligram?By Mouth?3 times a day before meals?as needed?Nausea & Vomiting?for 5?Days Pantoprazole (pantoprazole 40 mg oral delayed release tablet)?1?tab(s)?40?Milligram?By Mouth?Daily Rosuvastatin (Crestor 5 mg oral tablet)?1?tab(s)?5?Milligram?By Mouth?Daily Scopolamine (scopolamine 1 mg/72 hr transdermal film, extended release)?1?Film?Topically?Every 72 hours sodium bicarbonate (sodium bicarbonate 650 mg oral tablet)?1?tab(s)?650?Milligram?ByMouth?3 times a day torsemide (torsemide 20 mg oral tablet)?1?tab(s)?20?Milligram?By Mouth?2 times a day ? Inpatient Medications Medications (3) Active SCHEDULED: (2) Furosemide Inj (Furosemide ??Inj) ??40 mg 4 mL, IV Push Slowly, Once Vancomycin 1 Gm / D5%W 200 mL (Vancomycin IVPB) ??1 Gm 200 mL, IVPB, Once CONTINUOUS: (0) PRN: (1) HYDROmorphone 1 mg/mL Inj Syringe (Dilaudid Inj) ??1 mg 1 mL, IV Push Slowly, Every 15 minutes ? Results Recent Labs BLOOD COUNT & DIFF WBC 5.9 k/mm3 ()?? 06/24/2022 17:05 RBC 2.96 m/mm3 (Low)?? 06/24/2022 17:05 Hgb 8.1 Gm/dL (Low)?? 06/24/2022 17:05 Hct 25.8 % (Low)?? 06/24/2022 17:05 MCV 87.2 femtoliters ()?? 06/24/2022 17:05 MCH 27.4 pg ()?? 06/24/2022 17:05 MCHC 31.4 g/dL (Low)?? 06/24/2022 17:05 Platelet Count 228 k/mm3 ()?? 06/24/2022 17:05 RDW-SD 54.7 femtoliters (High)?? 06/24/2022 17:05 MPV 12.4 femtoliters ()?? 06/24/2022 17:05 Nucleated RBC (Automated) 0.5 #/100 WBC'S ()?? 06/24/2022 17:05 Abs. NRBC 0.0 k/mm3 ()?? 06/24/2022 17:05 Abs. Neut 4.8 k/mm3 ()?? 06/24/2022 17:05 Abs. Lymph 0.4 k/mm3 (Low)?? 06/24/2022 17:05 Abs. [place] 0.5 k/mm3 ()?? 06/24/2022 17:05 Abs. Eo 0.1 k/mm3 ()?? 06/24/2022 17:05 Abs. Baso 0.0 k/mm3 ()?? 06/24/2022 17:05 Neut % 82.7 % (High)?? 06/24/2022 17:05 Lymph % 6.7 % (Low)?? 06/24/2022 17:05 [place] % 7.9 % ()?? 06/24/2022 17:05 Eos % 2.1 % ()?? 06/24/2022 17:05 Baso % 0.3 % ()?? 06/24/2022 17:05 Imm Gran 0.3 % ()?? 06/24/2022 17:05 Abs. Imm Gran 0.0 k/mm3 ()?? 06/24/2022 17:05 ?? CARDIAC Nt-Probnp 30664 pg/mL (High)?? 06/24/2022 17:05 High Sensitivity Troponin (HSTnT) 106 ng/L (Critical)?? 06/24/2022 19:10 ?? CHEM GENERAL Sodium 136 mmol/L ()?? 06/24/2022 17:05 Potassium 4.1 mmol/L ()?? 06/24/2022 17:05 Chloride 107 mmol/L ()?? 06/24/2022 17:05 Bicarbonate Level 17 mmol/L (Low)?? 06/24/2022 17:05 Anion Gap 12 ()?? 06/24/2022 17:05 Glucose Level 131 mg/dL (High)?? 06/24/2022 17:05 Glucose, POC 139 mg/dL (High)?? 06/24/2022 17:43 Beta Hydroxybutyrate <0.05 mmol/L ()?? 06/24/2022 17:05 BUN 53 mg/dL (High)?? 06/24/2022 17:05 Creatinine-Blood 3.9 mg/dL (High)?? 06/24/2022 17:05 Estimated GFR Creatinine 15 ML/MIN/1.73 M2 ()?? 06/24/2022 17:05 Calcium 7.9 mg/dL (Low)?? 06/24/2022 17:05 Phosphorus 6.1 mg/dL (High)?? 06/23/2022 01:09 Protein, Total 6.5 Gm/dL ()?? 06/24/2022 17:05 Albumin 3.5 Gm/dL ()?? 06/24/2022 17:05 AG Ratio 1.2 ()?? 06/24/2022 17:05 Alkaline Phosphatase 133 units/L (High)?? 06/24/2022 17:05 Lipase 85 units/L (High)?? 06/24/2022 17:05 AST (SGOT) 31 units/L ()?? 06/24/2022 17:05 ALT (SGPT) 178 units/L (High)?? 06/24/2022 17:05 Bilirubin, Total 0.5 mg/dL ()?? 06/24/2022 17:05 C-Reactive Protein 0.7 mg/dL (High)?? 06/24/2022 17:05 ?? COAG INR 1.2 (High)?? 06/23/2022 01:09 Protime (PT) 12.8 seconds (High)?? 06/23/2022 01:09 D-Dimer 7.39 mg/L FEU (High)?? 06/24/2022 17:05 ?? ENDOCRINE/TUMOR MARKER Serum Qual NEGATIVE mIU/mL ()?? 06/24/2022 17:05 ?? HEME OTHER Sed Rate 47 mm/hr (High)?? 06/24/2022 17:05 Hold Blue Top SPECIMEN DISCARDED AFTER 4 HOURS. ()?? 06/24/2022 17:05 ?? IMMUNOLOGY GENERAL IgG 1291 mg/dL ()?? 06/23/2022 01:09 ?? VIROLOGY COVID-19 by RT-PCR NEGATIVE ()?? 06/24/2022 18:00 ? Microbiology ?? COVID-19 (Novel Coronavirus), Rapid PCR?? Completed?? Source: Nasal Body Site: Nose Collected Dt/Tm: 06/24/2022 16:15 Last Updated Dt/Tm: 06/24/2022 19:28 ? * Meli CARLSON, Jessica Sands: PERFORM Event Display: Admission Note Authored Date: [id number] 4/30 ?? Seen and examined the patient.?? I did chart review.?? Patient discussed with Dr. Melissa Palmer, agree with her findings, assessment and plan with the following additions. ?? This is a 31-year-old female with PMH including DM, nonischemic cardiomyopathy, HFrEF, on 2 L home oxygen as per patient, CKD, asthma, history of preeclampsia, blindness of right eye.?? Patient initially admitted on 06/22 with acute on chronic CHF and hypertensive urgency along with abdominal pain, diarrhea, evaluate enzymes and chronic left lower extremity wound.?? During that admission chest x-ray suggestive of pulmonary edema, CT scan of the abdomen showing small ascites with diffuse anasarcaand some pleural effusion.?? No left-sided DVT.?? Patient was diuresed.?? X-ray of the left foot shows no osteomyelitis.?? Patient was later on given doxycycline.?? CT head did not show anything acute. She was discharged 06/23. ?? However she came back 06/24 with persistent shortness of breath, cough,?? abdominal discomfort, wound on the left foot.?? Chest x-ray again shows findings suggestive of pulmonary edema/mild CHF.?? CT angio chest ruled out PE.?? There is mild to moderate pericardial effusion.?? There is a small left pleural effusion and moderate right pleural effusion.?? The left foot x-ray did not show any osteomyelitis.? Clinically patient is not on any respiratory distress, lung sounds clear.?? He does have slightly distended abdomen and bilateral lower extremity edema suggesting volume overload.?? Her abdomen is mildly tender on examination, no peritoneal sign.?? However she was vomiting actively when I saw the patient, yellowish vomitus.?? She does have an ulcer at the bottom of the left foot. ?? The cuase?? of her shortness of possibly CHF although patient does not have any crackles, CT scan/x-ray does suggest pulmonary edema. Does have b/l leg edema.?? No pneumonia, wheezing /asthma.?? PE ruled out.?? We will continue with Lasix. ?? The cause of abdominal pain is not clear, possibly diabetic gastroparesis. During last adm did havesome ascites.?? For now since she is vomiting I will keep her n.p.o. and get an x-ray KUB.?? Resumediet as patient improves. ?? She does have point in the left lower extremity/foot.?? Patient was discharged with doxycycline during last admission which we will continue. ?? Continue other home medications. ? EKG study * Event Display: ECG 12-Lead Authored Date: Please click on pdf link to open report * Event Display: ECG 12-Lead Authored Date: Ventricular Rate: 98 BPM Atrial Rate: 98 BPM P-R Interval: 156 ms QRS Duration: 136 ms Q-T Interval: 400 ms QTC Calculation(Bazett): 510 ms P [place]: 38 degrees R [place]: -1 degrees T [place]: 243 degrees Normal sinus rhythm Right bundle branch block T wave abnormality, consider lateral ischemia Abnormal ECG When compared with ECG of 24-JUN-2022 16:31, No significant change Confirmed by MAXWELL LÓPEZ ([id number]) on 06/25/2022 11:13:36 AM [place]: MAXWELL LÓPEZ * Event Display: EKG Authored Date: * Event Display: EKG Authored Date: * Event Display: ECG 12-Lead Authored Date: Please click on pdf link to open report * Event Display: ECG 12-Lead Authored Date: Ventricular Rate: 92 BPM Atrial Rate: 92 BPM P-R Interval: 158 ms QRS Duration: 136 ms Q-T Interval: 398 ms QTC Calculation(Bazett): 492 ms P [place]: 50 degrees R [place]: -7 degrees T [place]: 211 degrees Normal sinus rhythm Right bundle branch block Abnormal ECG When compared with ECG of 21-JUN-2022 17:54, No significant change Confirmed by MAXWELL LÓPEZ ([id number]) on 06/25/2022 11:13:15 AM [place]: MAXWELL LÓPEZ Hospital Progress note * Shawnee Sanchez MD: PERFORM, SIGN, VERIFY Event Display: Progress Note Hospital Authored Date: [id number] Patient: SHEREEN TAYLOR Age: 31 years Sex: Female : 1990 Associated Diagnoses: None Author: Shawnee Sanchez MD Overnight Events & Current Issues seen and examined Review of Systems Review of Systems Constitutional: no complaints. Physical Examination Vitals Vitals : VITAL SIGNS SECTION 06/28/2022 8:58 EDT Pulse Rate 82 bpm Systolic Blood Pressure 140 mm Hg H Systolic Blood Pressure 140 mm Hg H Systolic Blood Pressure 140 mm Hg H Diastolic Blood Pressure 65 mm Hg Diastolic Blood Pressure 65 mm Hg Diastolic Blood Pressure 65 mm Hg . General Appearance No apparent distress. Respiratory Lungs: CTA. Cardiac Rhythms: RRR. Abdomen/GI Soft. Non-tender. Extremities Normal. 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, nodular sclerosis, severe interstitial fibrosis LVEF 40-50% REC c/w torsemide 20 mg orally c/w sodium bicarbonate follow kidney function and electrolytes * Kimber Cordero RN: PERFORM, SIGN, VERIFY Event Display: Progress Note Hospital Authored Date: Patient: SHEREEN TAYLOR Age: 31 years Sex: Female : 1990 Associated Diagnoses: None Author: Kimber Cordero RN Findings Problem Related to Alteration in Cardiac Function (new) : Alteration in Cardiac Function/new 06/28/2022 10:00 EDT Alteration in Cardiac Status Related to Heart failure, Hypertension Goals & Outcomes, Cardiac Status Pt will resume/maintain adequate cardiac output, Pt will resume/maintain adequate hemodynamic status, Pt will resume/maintain adequate respiratory function, Pt will resume/maintain intact neuro function, Pt will maintain adequate GI/ function appropriate for pt, Pt will maintain adequate nutrition status, Pt/caregiver will state understanding of diagnosis, Pt will understand fluid restriction for Heart [...] & reposition Q2 hours per activity restrictions, Useadjunctive therapies per Standards of Practice, Resolved problem; interventions no longer in effect BH Goals/Interventions, Cardiac Yes Cardiac, Problem Start 06/25/2022 2:39 Reviewed Plan with, Cardiac Status Patient Patient Progression, Cardiac Status Resolved problem Cardiac, Problem Resolved 06/28/2022 10:05 . Alteration in Integumentary : Alteration in Integumentary/new 06/28/2022 10:00 EDT Alteration in Integumentary Related to Diabetes, Stage II Goals & Outcomes, Integumentary Nutritional intake is adequate for metabolic needs, Pt will maintain adequate fluid & nutritional balance, Pt will maintain intact skin integrity, Wound will progress towards healing Interventions, Integumentary Cleanse all wounds with Normal Saline, Collaborate w/ provider for PT/OT consults, Consult Wound Care as needed for further interventions, Encourage & assist pt to change position frequently, Encourage & assist with range of motion exercises, Encourage family participation in pt's care as they are able, Ensure relief modes are on mattress surface & utilized, Increase turning frequency if red or blanched areas appear, Interdisciplinary consults as appropriate, Keep bed as flat as tolerated to reduce shearing, Keep linen clean, dry and wrinkle free, Keepskin clean & dry, Maintain sterile technique with dressing changes, Minimize friction, shear and moisture, Monitor reddened areas for continued or increasing reddness, Record extent of impaired skin integrity, Relieve pressure off bony areas, Reposition pt off reddened areas, Teach Pt/caregivers/s of infection, Teach Pt/S.O. risks of & measures to prevent skin breakdown, Use barrier cream/ointment if pt's skin is frequently moist, Use fecal incontinence appliance if pt incontinent of stool, Use heel & elbow protectors to relieve friction, Use pH balanced no rinse cleanser if incon tinent, Use pressure dispersing devices as appropriate BH Goals/Interventions, Integumentary Yes Integumentary, Problem Start 06/28/2022 10:06 Reviewed plan with, Integumentary Patient Patient Progression, Integumentary Plan Initiation . Falls Risk Assessment : Falls Data 06/28/2022 10:04 EDT Fall Elimination No impairment Fall Agitation/Anxiety/Depression No impairment Fall Related Sign/Symptom/Condition None Fall Cognitive Limitations No impairment Fall Sensory and Physical Function Fatigued, Unsteady Gait, Requires Staff Assistance with Transfer Plan: Fall Sensory and Physical Function Encourage safe activities to maintain strength & mobility, Perform strengthening exercises with the patient, Ask family to encourage safe activities, Monitor patient's progress with physical activities, Educate patient how to use mobility aids safely, Educate the family how to use mobility aids safely, Place mobility aids near bedside, Ensure patient has & wears eyeglasses/hearing aids, Collaborate with MD to refer to physical therapy, Collaborate with Physical Therapy for balance/gait training, Collaborate with MD to refer to occupational therapy, Review factors that contributed to previous falls Fall High Risk for Injury None of the above Total Falls Risk Score 7 Fall Risk Level High Risk Falls Prevention Plan for High Risk Fall risk decal outside of patient's room, Apply yellow high fall risk wrist band to wrist, Ensure patient has yellow non- skid slippers, Supervise patient in the bathroom & shower, Consider relocating patient closer to nurses' station, Activate bed exit alarmsystem, Evaluate footwear & ensure patient has non-skid slippers, Bed in lowest locked position, Provide patient/family falls prevention education, Place personal care items & call moore within reach, Instruct patient/family to request assistance with ambulatio, Instruct patient/family not to get up without assistance, Supervise the patient when ambulating or making transfers, Check that needs are met to minimize attempts to get up, Hourly rounds, Ensure safe & uncluttered environment, Communicate falls risk to all providers, Consider consult with Geriatric Team as appropriate . Nursing Data Cardiac Data. : Cardiac Data. 06/28/2022 10:01 EDT Cardiac Rhythm Normal sinus rhythm nurse monitoring Yes Cardiovascular WNL except . Gastrointestinal Data. : Gastrointestinal Data. 06/28/2022 10:01 EDT Last Bowel Movement 06/26/2022 GI WNL Normal Bowel Pattern Daily . Genitourinary Data. : Genitourinary Data. 06/28/2022 10:01 EDT WNL . HEENT Data. : HEENT Assessment 06/28/2022 10:01 EDT HEENT, Adult WNL except Eye Location, Adult Both eyes Eye Symptoms, Adult Vision impairment . Integumentary Data. : Integumentary Data. 06/28/2022 10:03 EDT Sensory Perception Slightly limited Moisture Occasionally moist Activity Walks occasionally Mobility Slightly limited Nutrition Probably inadequate Friction and Shear Potential problem Prasad Score 16 Nursing Care Plan initiated/updated Yes 06/28/2022 10:01 EDT Skin Integrity Not intact Pressure Ulcer Location I Foot, left Pressure Ulcer I, Stage Stage II Pressure Ulcer I, Surrounding Skin Callous, Other: dark in color Integumentary WNL except . Musculoskeletal Data. : Musculoskeletal Data. 06/28/2022 10:01 EDT Musculoskeletal Abnormality Amputation Musculoskeletal WNL except . Neurological Data. : Neurological Data. 06/28/2022 10:01 EDT Neurological Symptoms Unsteady gait/Ataxia FACES Scale Score 4 Neuro WNL except . Respiratory/Pulmonary Data. : Respiratory/Pulmonary Data. 06/28/2022 10:01 EDT Respiratory Assessment Comment 2L O2 NC PRN which is baseline Respiratory WNL except . Evaluation pt A/Ox3, blind. OOB stand pivot with stand by assist. on 2L O2 NC PRN, which is baseline. Plan is for patient to be d/c home today. fall precautions in place and call moore within reach at all times and patient able to ring appropriately. . * Frank DONG, Favian [place]: PERFORM Event Display: Progress Note Hospital Authored Date: [id number] Patient: ??SHEREEN TAYLOR ? Age:??31 Years?Sex:??Female?:??1990?? Subjective Overnight events:??Patient continues to refuse??care and labs. ?? Today:??Patient is slightly more cooperative??with examination. ??She denies any chest pain, shortness of breath, abdominal pain, swelling in lower extremities. ??She does endorse??left??foot pain from her wound. Review of Systems Review of systems negative unless otherwise stated in HPI. Objective Vital Signs?? Temperature: 97.4 DegF (06/27/22 01:00:00) Temperature Route: Temporal (06/27/22 01:00:00) Pulse Rate: 87 bpm (06/27/22 11:18:00) Respiratory Rate: 18 br/min (06/27/22 11:18:00) Vented: No (06/27/22 01:00:00) Systolic Blood Pressure:??155 mm Hg??High (06/27/22 11:18:00) Diastolic Blood Pressure: 82 mm Hg (06/27/22 11:18:00) Blood pressure sites: Arm, right (06/26/22 20:03:00) Mean Arterial Pressure: 76 mm Hg (06/26/22 20:03:00) Pulse Pressure: 60 mm Hg (06/27/22 01:00:00) Oxygen Saturation: 100 % (06/27/22 01:00:00) Liters per Minute: 2 L/min (06/27/22 01:00:00) Mode of Delivery (Oxygen): Nasal cannula (06/27/22 01:00:00) Early Warning Score: 2 (06/27/22 12:47:31) ? Intake/Output? 06/24 21:15 06/27 07:00 06/26 07:00 06/25 07:00 06/24 07:00 ?? 06/27 12:50 06/27 12:50 06/27 06:59 06/26 06:59 06/25 06:59 Intake ? 2308 ?240 ? 1140 ?688 ?240 Output ? 6650 ?800 ? 2000 ? 2300 ? 1550 Net Total ?-4342 ? -560 ? -860 ?-1612 ?-1310 ? Physical Exam Constitutional: Sleepy, in no distress. Mental Status: Oriented to person, place and time. Head: Normocephalic. Neck: Supple, Full range of motion. Respiratory: Clear to auscultation. No wheezing, rales or rhonchi. Cardiovascular: S1 S2 regular. No murmurs, rubs or gallops. Gastrointestinal: Abdomen soft, non-tender, non-distended. Neurologic: Cranial nerves II-XII grossly intact. No focal neurological deficits. Moves all extremities spontaneously. Skin: No rashes or lesions. No petechiae or purpura.?? Musculoskeletal: No cyanosis or clubbing. No gross deformities. Normal range of motion. 1x1 cm nonpurulent wound on plantar surface of left foot. Psychiatric: Normal mood and affect _ Inpatient Medications Medications (20) Active SCHEDULED: (14) Amlodipine 10 mg Tablet (amLODIPine 10 mg oral tablet) ??10 mg, By Mouth, Daily Aspirin 81 mg EC Tablet (aspirin 81 mg oral delayed release tablet) ??81 mg, By Mouth, Daily Carvedilol 25 mg Tablet (Coreg 25 mg oral tablet) ??25 mg, By Mouth, 2 times a day Doxycycline 100 mg Tablet (Doxycycline Tablet) ??100 mg, By Mouth, Every 12 hours Heparin 5000 units/mL Inj (1 mL) (Heparin Inj) ??5,000 units 1 mL, Subcutaneous Injection, 3 times a day hydrALAZINE 25 mg Tablet (hydrALAZINE 25 mg oral tablet) ??50 mg, By Mouth, 3 times a day Insulin Lispro 100 units/mL Inj (3mL) (Insulin LISPRO Sliding Scale) ??2-10 units, Subcutaneous Injection, 3 times a day before meals Isosorbide Mononitrate 30 mg ER Tablet (isosorbide mononitrate 30 mg oral tablet, extended release)??30 mg, By Mouth, Daily Lidocaine 5% Topical Patch (Lidocaine 5% Patch) ??1 each, Topically, Daily Pantoprazole 40 mg EC Tablet (pantoprazole 40 mg oral delayed release tablet) ??40 mg, By Mouth, Daily Remove Patch (Remove Lidocaine Patch) ??1 each, Topically, Daily at bedtime Rosuvastatin 5 mg Tablet (Crestor 5 mg oral tablet) ??5 mg, By Mouth, Daily Sodium Bicarbonate 650 mg Tablet (sodium bicarbonate 650 mg oral tablet) ??650 mg, By Mouth, 3 times a day Torsemide 20 mg tablet (torsemide 20 mg oral tablet) ??20 mg 1 tablet, By Mouth, Daily CONTINUOUS: (0) PRN: (6) Cyclobenzaprine 10 mg Tablet (Flexeril 10 mg oral tablet) ??10 mg, By Mouth, 3 times a day diphenhydrAMINE 25 mg Tablet (Benadryl Tablet) ??25 mg, By Mouth, Every 4 hours Docusate Sodium 100 mg Capsule (Colace sodium 100 mg oral capsule) ??100 mg 1 capsule, By Mouth, Daily HYDROmorphone 2 mg Tablet (HYDROmorphone 2 mg oral tablet) ??2 mg, By Mouth, Every 6 hours HydrOXYzine HCL 10mg Tablet (HydrOXYzine HCL Tablet) ??10 mg, By Mouth, 4 times a day Metoclopramide 10 mg Tablet (Reglan 10 mg oral tablet) ??5 mg, By Mouth, 3 times a day before meals ? Results Recent Labs BLOOD COUNT & DIFF WBC 4.4 k/mm3 ()?? 06/27/2022 12:00 RBC 2.94 m/mm3 (Low)?? 06/27/2022 12:00 Hgb 7.5 Gm/dL (Low)?? 06/27/2022 12:00 Hct 25.2 % (Low)?? 06/27/2022 12:00 MCV 85.7 femtoliters ()?? 06/27/2022 12:00 MCH 25.5 pg (Low)?? 06/27/2022 12:00 MCHC 29.8 g/dL (Low)?? 06/27/2022 12:00 Platelet Count 194 k/mm3 ()?? 06/27/2022 12:00 RDW-SD 52.9 femtoliters (High)?? 06/27/2022 12:00 MPV 12.7 femtoliters (High)?? 06/27/2022 12:00 Nucleated RBC (Automated) 0.0 #/100 WBC'S ()?? 06/27/2022 12:00 Abs. NRBC 0.0 k/mm3 ()?? 06/27/2022 12:00 ?? CHEM GENERAL Glucose, POC 167 mg/dL (High)?? 06/27/2022 11:53 ? Assessment/Plan 31 year old female with PMH of??nonischemic cardiomyopathy, HFrEF EF 40-50%, diabetes, CKD stage IV, asthma, blindness of right eye, CKD stage 4 (advanced diabetic nephropathy) presenting for volume overload.? Acute on chronic HFrEF (EF 40-50%) Moderate to severe TR Recently discharged for an acute exacerbation and hypertensive emergency. Little evidence for volume overload but significant improvement after getting IV lasix. She mentions being compliant with medication at home. ??Patient has been refusing??labs. ??She is agreeable to have labs drawn today. ?? Plan: ? - Switch to Torsemide 20 mg PO QD ? - Monitor I+O, daily weights ? - Continue ASA ? - Continue carvedilol, hydralazine and Imdur ? - quality assurance monitor chassis ?? Low back pain-resolving Pt with tenderness to palpation of low back over midline and radiating out to mid flank. No fevers,leukocytosis, low suspicion for abscess. Likely musculoskeletal in nature, will give lidocaine patch and muscle relaxer and continue to monitor ?? Plan: ? - Lidocaine patch ? - Flexeril 10mg TID PRN ?? LLE wound Patient without fevers or leukocytosis. Appears to be some drainage. XR L Foot showing:??No findings of osteomyelitis or other acute bony abnormality. Superficial plantar ulcer without evidence of radiopaque foreign matter. ??Previous documentation??documented??a purulent??wound. ??Upon examinationof the wound today there was no purulence??present??nor any evidence of??bony involvement.?? The wound did not show any physical signs of infection. ??Initial wound care consult was placed??however??patient has seen vascular surgery for amputations in the past.?? Vascular surgery will be consulted. ?? Plan: ? - Consult??vascular surgery ? - Continue Doxycycline till June 30 ? CKD stage IV Acute kidney injury Baseline creatinine 3.0-3.4, creatinine on admission 3.9 Likely 2/2 volume overload ?? Plan: ? - Diuresis as above ? - Continue sodium bicarb from home ? - Renal consult, follows with [facility] ?? Abdominal pain ?Gastroparesis Pt w/ nausea/vomiting which is not new. Nausea responds well to Reglan. KUB wnl 06/25. Hx of uncontrolled diabetes, concern for gastroparesis ?? Plan: ? - Reglan PRN ?? Chronic Stable Medical Conditions: Diabetes: patient reports she is not taking insulin at home due to blood sugars within normal range. POC TID and QHS. SSI while inpatient. GERD: continue PPI ?? Quality Measures Diet: Cardiac DVT Prophylaxis: Heparin Code: FULL Anticipated Date of Discharge:??Tomorrow ?? Patient seen and discussed with the attending physician, Dr. Womack Favian Marie, DO Internal Medicine Resident Pager #[phone] ?? This note was dictated??by [employer] voice detection software,??for any errors??or clarifications, please do not hesitate to reach out for clarifications. ? * Mihai Womack MD: PERFORM Event Display: Progress Note Hospital Authored Date: Attending Attestation:??I saw and examined the patient with the resident team and reviewed the chart on the day of service. ??I have discussed the case and its management??with the resident as documented in the resident note on the day of service.??I agree with the resident's note and plan as documented.?? I evaluated the wound and there does not appear to be any evidence of any infection and there is no current drainage.?? Vascular team input appreciated.?? Wound care input also apreciated.?? She has gerardo and following renal function closely.?? Renal input appreciated. Note * Kimber Cordero RN: PERFORM Event Display: Discharge/Transfer Note Hospital Authored Date: Nursing Discharge Note Entered On: 06/28/2022 14:16 EDT Performed On: 06/28/2022 14:15 EDT by Kimber Cordero RN Nursing Discharge Note 2 Discharge Time : 06/28/2022 14:15 EDT Discharge Level of Care at Discharge : Home/[facility] Patient Left Unit Via : Wheelchair Patient Accompanied Off Unit with : Responsible adult DC Instructions Provided & Signed by Pt : Yes Patient Understands D/C Instructions : Yes Patient Instructions Discharge Signed : Yes Did Pt have Specialty Bed or Wound Vac : No Kimber Cordero RN - 06/28/2022 14:15 EDT * Favian Marie DO T: MODIFY, MODIFY, MODIFY, MODIFY, PERFORM Event Display: Discharge/Transfer Note Hospital Authored Date: Patient: ??SHEREEN TAYLOR ? Age:??31 Years?Sex:??Female?:??1990?? Patient Information Discharge Location: Primary Care Physician: Abdon Beard MD Admit Date/Time: 06/24/22 21:15 Discharge Date: 06/28/2022 Discharge Disposition Discharge Disposition: Home: No Services Discharge Diagnosis Acute on Chronic HFrEF Lower Extremity Wounds _ Discharge Medications Albuterol (Albuterol (Eqv-ProAir HFA) 90 mcg/inh inhalation aerosol)?2?puff(s)?Inhalation?Every 4 hours Amlodipine (amLODIPine 10 mg oral tablet)?10?Milligram?1?tablet?By Mouth?Daily Aspirin (Aspirin Low Dose 81 mg oral delayed release tablet)?1?tab(s)?81?Milligram?By Mouth?Daily Carvedilol (Coreg 25 mg oral tablet)?25?Milligram?1?tablet?By Mouth?2 times a day Docusate (Colace sodium 100 mg oral capsule)?100?Milligram?1?capsule?By Mouth?Daily?as needed?for constipation Doxycycline (doxycycline hyclate 100 mg oral tablet)?1?capsule?By Mouth?Every 12 hours?for 7?Days Durable Medical Equipment (Pen Rogers, 31 G x 5 mm BD Ultra Fine III)?See Instructions?for 30?Days?use as directed for Type 2 Diabetes Mellitus Ferrous Fumarate (ferrous fumarate 324 mg oral tablet)?1?tab(s)?324?Milligram?By Mouth?Daily Fluticasone Nasal (Flonase 50 mcg/inh nasal spray)?1?spray(s)?Nares, Both?2 times a day hydrALAZINE (hydrALAZINE 50 mg oral tablet)?1?tab(s)?50?Milligram?By Mouth?3 times a day Hydromorphone (HYDROmorphone 2 mg oral tablet)?1?tab(s)?2?Milligram?By Mouth?Every 6 hours?as needed?Pain , Severe Isosorbide Mononitrate (isosorbide mononitrate 30 mg oral tablet, extended release)?TAKE 1 TABLET BY MOUTH EVERY DAY Pantoprazole (pantoprazole 40 mg oral delayed release tablet)?1?tab(s)?40?Milligram?By Mouth?Daily Rosuvastatin (Crestor 5 mg oral tablet)?1?tab(s)?5?Milligram?By Mouth?Daily Scopolamine (scopolamine 1 mg/72 hr transdermal film, extended release)?1?Film?Topically?Every 72 hours sodium bicarbonate (sodium bicarbonate 650 mg oral tablet)?1?tab(s)?650?Milligram?ByMouth?3 times a day torsemide (torsemide 20 mg oral tablet)?1?tab(s)?20?Milligram?By Mouth?2 times a day ? Medications Started Hydromorphone (HYDROmorphone 2 mg oral tablet)?1?tab(s)?2?Milligram?By Mouth?Every 6 hours?as needed?Pain , Severe Medications Discontinued None Doses Changed None PCP Follow-Up/Heads-Up Patient was seen at [facility] after??being discharged to??prior day??for apparent volume overload??secondary to heart failure exacerbation.?? There was little evidence of volume overload on physical exam, however, patient responded well to??IV Lasix. ??Patient was then switched back to her home dose of torsemide 20 mg.?? Patient endorsed??lower extremity pain secondary to wounds on her feet.?? These were evaluated during both??admissions and she is to continue taking doxycycline??until??June 30.?? Please follow-up with patient??about compliance with antibiotics??and??to repeat??BMP. ??Patient also found??to have severe iron deficiency anemia started on Procrit. Hospital Course 31 year old female with PMH of nonischemic cardiomyopathy, HFrEF EF 40-50%, diabetes, CKD stage IV,asthma, blindness of right eye, CKD stage 4 (advanced diabetic nephropathy) presenting for volume overload.??Recently discharged for an acute exacerbation and hypertensive emergency. Little evidence for volume overload but significant improvement after getting IV lasix.?Lower extremity wounds were evaluated. Patient was started on doxycycline??during??previous admission??supposed to continue antibiotics until June 30.??Patient received oral Dilaudid??for pain control??and tolerated well.?Patient found to be iron deficient and started on??Procrit. ??Patient is hemodynamically stable at time of discharge. ?? Objective Assessment and Plan 31 year old female with PMH of??nonischemic cardiomyopathy, HFrEF EF 40-50%, diabetes, CKD stage IV, asthma, blindness of right eye, CKD stage 4 (advanced diabetic nephropathy) presenting for volume overload.? Acute on chronic HFrEF 40-50% Moderate to severe TR Recently discharged for an acute exacerbation and hypertensive emergency. Little evidence for volume overload but significant improvement after getting IV lasix. She mentions being compliant with medication at home. ?? Recommendations: ?- Torsemide 20 mg PO QD ? -??Daily weight ? - Continue ASA ? - Continue carvedilol, hydralazine and Imdur ? - F/U with PCP ?? Low back pain-resolved Pt with tenderness to palpation of low back over midline and radiating out to mid flank. No fevers,leukocytosis, low suspicion for abscess. Likely musculoskeletal in nature, will give lidocaine patch and muscle relaxer and continue to monitor ?? Recommendations: ? - Continue to monitor ?? LLE wound Patient without fevers or leukocytosis. Appears to be some drainage. XR L Foot showing:??No findings of osteomyelitis or other acute bony abnormality. Superficial plantar ulcer without evidence of radiopaque foreign matter. ??Previous documentation??documented??a purulent??wound. ??Upon examinationof the wound today there was no purulence??present??nor any evidence of??bony involvement.?? The wound did not show any physical signs of infection. ??Initial wound care consult was placed??however??patient has seen vascular surgery for amputations in the past.?? Vascular surgery consulted and recommend followup with orthopedics and podiatry. ?? Recommendations: ? - Continue Doxycycline till June 30 ? - Follow up with Orthopedics and podiatry? CKD stage IV Acute kidney injury Iron deficiency anemia Baseline creatinine 3.0-3.4, creatinine on admission 3.9. Likely 2/2 volume overload. Iron level 11. ?? Plan: ? - Diuresis as above ? - F/U with PCP for BMP ? - Continue Ferrous sulfate ?? Abdominal pain-resolved ?Gastroparesis Pt w/ nausea/vomiting which is not new. Nausea responds well to Reglan. KUB wnl 06/25. Hx of uncontrolled diabetes, concern for gastroparesis ?? Recommendations: ? - Monitor ?? Chronic Stable Medical Conditions: Diabetes: patient reports she is not taking insulin at home due to blood sugars within normal range. POC TID and QHS. SSI while inpatient. GERD: continue PPI ?? Patient seen and discussed with the attending physician, Dr. Womack Favian Marie, DO Internal Medicine Resident Pager #[phone] ?? This note was dictated??by E[employer] voice detection software,??for any errors??or clarifications, please do not hesitate to reach out for clarifications. ? Vital Signs?? Temperature: 97.4 DegF (06/27/22 01:00:00) Temperature Route: Temporal (06/27/22 01:00:00) Pulse Rate: 84 bpm (06/27/22 01:00:00) Respiratory Rate: 18 br/min (06/27/22 01:10:00) Vented: No (06/27/22 01:00:00) Systolic Blood Pressure: 136 mm Hg (06/27/22 01:00:00) Diastolic Blood Pressure: 76 mm Hg (06/27/22 01:00:00) Blood pressure sites: Arm, right (06/26/22 20:03:00) Mean Arterial Pressure: 76 mm Hg (06/26/22 20:03:00) Pulse Pressure: 60 mm Hg (06/27/22 01:00:00) Oxygen Saturation: 100 % (06/27/22 01:00:00) Liters per Minute: 2 L/min (06/27/22 01:00:00) Mode of Delivery (Oxygen): Nasal cannula (06/27/22 01:00:00) Early Warning Score: 2 (06/27/22 04:07:43) ? . Physical Exam Constitutional: Sleepy, in no distress. Mental Status: Oriented to person, place and time. Head: Normocephalic. Neck: Supple, Full range of motion. Respiratory: Clear to auscultation. No wheezing, rales or rhonchi. Cardiovascular: S1 S2 regular. No murmurs, rubs or gallops. Gastrointestinal: Abdomen soft, non-tender, non-distended. Neurologic: Cranial nerves II-XII grossly intact. No focal neurological deficits. Moves all extremities spontaneously. Skin: No rashes or lesions. No petechiae or purpura.?? Musculoskeletal: No cyanosis or clubbing. No gross deformities. Normal range of motion. Feet wrapped. Psychiatric: Normal mood and affect Consultants Renal Wound Care Vascular Surgery Pending Results ALT ordered on 06/26/2022 AST ordered on 06/26/2022 Add On Lab Order ordered on 06/24/2022 Alk Phos ordered on 06/26/2022 BUN ordered on 06/26/2022 Basic Metabolic Panel ordered on 06/27/2022 Bilirubin Total + Direct ordered on 06/26/2022 Blood Culture ordered on 06/24/2022 Blood Culture #2 ordered on 06/24/2022 CBC ordered on 06/26/2022 CBC ordered on 06/27/2022 Calcium Level ordered on 06/26/2022 Creatinine ordered on 06/26/2022 Electrolytes ordered on 06/26/2022 Magnesium Level ordered on 06/26/2022 Magnesium Level ordered on 06/27/2022 Patient Education Titles Torsemide Oral Tablet?? Discharge Instructions for Heart Failure?? Coping with Heart Failure?? Heart Failure: Making Changes to Your Diet?? Follow-Up Appointments Added Follow Up ?Time Frame ?Comments Chirag CARLSON, Abdon?1 to 2 weeks Patient Instructions You were seen at [facility] for volume overload. ??You were given IV diuretics with adequate response and then switched to??oral torsemide 20 mg.?? Please continue to take your medications as prescribed.?? In addition??you were??evaluated for your??lower extremity??wounds.?? Please follow-up with your primary care??physician??and continue taking??doxycycline until??May 5. ??You also need to follow-up with??orthopedics and podiatry??for further management??of??your foot wound. Home Health Face to Face ^HomeHealthFTF Results Discharge Labs BLOOD COUNT & DIFF WBC 5.9 k/mm3 ()?? 06/24/2022 17:05 RBC 2.96 m/mm3 (Low)?? 06/24/2022 17:05 Hgb 8.1 Gm/dL (Low)?? 06/24/2022 17:05 Hct 25.8 % (Low)?? 06/24/2022 17:05 MCV 87.2 femtoliters ()?? 06/24/2022 17:05 MCH 27.4 pg ()?? 06/24/2022 17:05 MCHC 31.4 g/dL (Low)?? 06/24/2022 17:05 Platelet Count 228 k/mm3 ()?? 06/24/2022 17:05 RDW-SD 54.7 femtoliters (High)?? 06/24/2022 17:05 MPV 12.4 femtoliters ()?? 06/24/2022 17:05 Nucleated RBC (Automated) 0.5 #/100 WBC'S ()?? 06/24/2022 17:05 Abs. NRBC 0.0 k/mm3 ()?? 06/24/2022 17:05 Abs. Neut 4.8 k/mm3 ()?? 06/24/2022 17:05 Abs. Lymph 0.4 k/mm3 (Low)?? 06/24/2022 17:05 Abs. [place] 0.5 k/mm3 ()?? 06/24/2022 17:05 Abs. Eo 0.1 k/mm3 ()?? 06/24/2022 17:05 Abs. Baso 0.0 k/mm3 ()?? 06/24/2022 17:05 Neut % 82.7 % (High)?? 06/24/2022 17:05 Lymph % 6.7 % (Low)?? 06/24/2022 17:05 [place] % 7.9 % ()?? 06/24/2022 17:05 Eos % 2.1 % ()?? 06/24/2022 17:05 Baso % 0.3 % ()?? 06/24/2022 17:05 Imm Gran 0.3 % ()?? 06/24/2022 17:05 Abs. Imm Gran 0.0 k/mm3 ()?? 06/24/2022 17:05 ?? CARDIAC Nt-Probnp 65471 pg/mL (High)?? 06/24/2022 17:05 High Sensitivity Troponin (HSTnT) 106 ng/L (Critical)?? 06/24/2022 19:10 ?? CHEM GENERAL Sodium 136 mmol/L ()?? 06/24/2022 17:05 Potassium 4.1 mmol/L ()?? 06/24/2022 17:05 Chloride 107 mmol/L ()?? 06/24/2022 17:05 Bicarbonate Level 17 mmol/L (Low)?? 06/24/2022 17:05 Anion Gap 12 ()?? 06/24/2022 17:05 Glucose Level 131 mg/dL (High)?? 06/24/2022 17:05 Glucose, POC 183 mg/dL (High)?? 06/27/2022 04:03 Beta Hydroxybutyrate <0.05 mmol/L ()?? 06/24/2022 17:05 BUN 53 mg/dL (High)?? 06/24/2022 17:05 Creatinine-Blood 3.9 mg/dL (High)?? 06/24/2022 17:05 Estimated GFR Creatinine 15 ML/MIN/1.73 M2 ()?? 06/24/2022 17:05 Calcium 7.9 mg/dL (Low)?? 06/24/2022 17:05 Protein, Total 6.5 Gm/dL ()?? 06/24/2022 17:05 Albumin 3.5 Gm/dL ()?? 06/24/2022 17:05 AG Ratio 1.2 ()?? 06/24/2022 17:05 Alkaline Phosphatase 133 units/L (High)?? 06/24/2022 17:05 Lipase 85 units/L (High)?? 06/24/2022 17:05 AST (SGOT) 31 units/L ()?? 06/24/2022 17:05 ALT (SGPT) 178 units/L (High)?? 06/24/2022 17:05 Bilirubin, Total 0.5 mg/dL ()?? 06/24/2022 17:05 C-Reactive Protein 0.7 mg/dL (High)?? 06/24/2022 17:05 ? COAG D-Dimer 7.39 mg/L FEU (High)?? 06/24/2022 17:05 ? ENDOCRINE/TUMOR MARKER Serum Qual NEGATIVE mIU/mL ()?? 06/24/2022 17:05 ? HEME OTHER Sed Rate 47 mm/hr (High)?? 06/24/2022 17:05 Hold Blue Top SPECIMEN DISCARDED AFTER 4 HOURS. ()?? 06/24/2022 17:05 ?? URINE OTHER Est Creatinine Clearance 19.21 mL/min ()?? 06/25/2022 01:19 ? VIROLOGY COVID-19 by RT-PCR NEGATIVE ()?? 06/24/2022 18:00 ? Imaging(s) ?CT Angio Chest ?? 06/24/2022 19:04??by Constanza Fofana MD ?IMPRESSION: ?? No CT evidence of pulmonary embolism. ?? No significant change in [id number] pericardial effusion. ?? Small left pleural effusion, decreased in size from prior exam. Slight decrease in size of moderateright pleural effusion. Mild bibasilar atelectasis. ?Chest Portable ?? 06/24/2022 17:25??by Constanza Fofana MD ?IMPRESSION: ?? Persistent bilateral central vascular congestion and mild perivascular haziness, especially in the lung bases, suggestive of mild CHF/pulmonary edema. ?Abdomen AP ?? 06/25/2022 06:36??by Zain CARLSON, Angeles O ?IMPRESSION: ?? There is no evidence of acute pathology. ?ECG 12-Lead ?? 06/24/2022 16:31??by Ning CARLSON, Maxwell M ?Ventricular Rate: 92 BPM Atrial Rate: 92 BPM P-R Interval: 158 ms QRS Duration: 136 ms Q-T Interval: 398 ms QTC Calculation(Bazett): 492 ms P [place]: 50 degrees R [place]: -7 degrees T [place]: 211 degrees Normal sinus rhythm Right bundle branch block Abnormal ECG When compared with ECG of 21-JUN-2022 17:54, No significant change ?Foot Min 3 Views Left ?? 06/24/2022 18:56??by Mihai Hernandez MD ?IMPRESSION: ?? No findings of osteomyelitis or other acute bony abnormality. Superficial plantar ulcer without evidence of radiopaque foreign matter. ? 33??minutes spent on discharge * Holly Olivares RN: PERFORM Event Display: Patient Education/Instruction Authored Date: [id number] Inpatient Adult Discharge Instructions [address] [address] Name: SHEREEN TAYLOR : 1990 Visit: 06/24/2022 21:15:00 Current Date: 06/28/2022 13:24 Account: [id number] Inpatient Adult Discharge Instructions We would like to thank you for allowing us to assist you with your healthcare needs. The following includes patient education materials and information regarding your injury/illness. Our entire staffstrives to provide an excellent experience for our patients and their families. PLEASE ENSURE YOU FOLLOW-UP PER THE INSTRUCTIONS BELOW! ?? YOUR OPINION IS IMPORTANT TO US! Please complete the survey you may receive by mail or email. Your feedback will be used to make improvements to the healthcare experiences of our patients and their families. Surveys are administered by [employer] ?? If further treatment with your primary care physician or another doctor is recommended, it is important for you to keep the appointment. Call your primary care physician or return to the Emergency Department immediately if your condition worsens, fails to improve, or new symptoms develop. If you need to find a doctor, you can call [facility] for a referral at [phone] or toll free at [phone] or log in to [email or web address].. ?? You can view and manage your care through the patient portal or by using a health care calos of your choosing. [employer] is a website that allows you to securely view your medical information including your hospital discharge summary, office visit summaries, medications and follow-up visits. You can also request appointments, renew medications, and request access to your medical information using a health care calos of your choosing, or just ask a question. You can enroll at [email or web address] or register during your next office visit. You have been discharged from [facility], Patient Care Unit: M7. If you have any questions regarding these instructions after you leave, please call us and we will be happy to assist you. [facility] Your Care Team Attending Physician Shanta CARLSON, Mihai Consulting Providers Daniel CARLSON, [place] Discharging Providers Favian Marie DO Reason for Your Visit Leg edema, SOB. Hx HF on torsemide w CKD. Low urine output. Frequent admission fo IV diuresis. No other complaints per pt. Blind. Your Diagnosis Charcot's joint of left foot Diabetes mellitus with neuropathy History of transmetatarsal amputation of left foot Insulin dependent type 2 diabetes mellitus Non-pressure chronic ulcer of other part of 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 Shortness of breath Ulcer of foot due to diabetes Tests Performed Below is a partial list of the tests performed during your hospitalization. You may have had other tests and procedures not included in this list. Please discuss all test results with your provider. Alk Phos ALT AST Basic Metabolic Panel BETA HYDROXYBUTYRATE BUN C-REACTIVE PROTEIN Calcium Level CBC COMPLETE CBC WITH DIFF Comprehensive Metabolic Panel COVID-19 (Novel Coronavirus), Rapid PCR Creatinine D-DIMER Electrolytes GLUCOSE POC High Sensitivity Troponin T HOLD BLUE TUBE IRON & TIBC Lipase Mg Level BLOOD, QUALITATIVE ProBNP SEDIMENTATION RATE,AUTOMATED Troponin T, High Sensitivity CT Angio Chest XR Chest Portable XR Foot Min 3 Views Left XR KUB or Abdomen Primary Care Provider Chirag CARLSON, Abdon Advance Directive . Discharge Vitals Temperature: 98.1 DegF Height: 167.64 cm Pulse Rate: 82 bpm Weight: 97.4 kg Respiratory Rate: 18 br/min Body Mass Index:??32.63 kg/m2??Critical Systolic Blood Pressure:??140 mm Hg??High Body surface area: 2.07 Systolic Blood Pressure:??140 mm Hg??High ?? Systolic Blood Pressure:??140 mm Hg??High ?? Diastolic Blood Pressure: 65 mm Hg ?? Diastolic Blood Pressure: 65 mm Hg ?? Diastolic Blood Pressure: 65 mm Hg ?? Oxygen Saturation: 100 % ?? Studies Pending All tests and labs ordered during this hospital stay have been completed unless listed below. Please discuss all pending results with your provider listed above in these instructions. ?? Add On Lab Order Anaerobic Culture Bilirubin Total + Direct Blood Culture Blood Culture #2 Magnesium Level Wound Deep Culture w/ Gram Smear (Deep Wound Culture w/ Gram Smear) What to do next Instructions From Your Doctor You were seen at [facility] for volume overload. ??You were given IV diuretics with adequate response and then switched to??oral torsemide 20 mg.?? Please continue to take your medications as prescribed.?? In addition??you were??evaluated for your??lower extremity??wounds.?? Please follow-up with your primary care??physician??and continue taking??doxycycline until??May 5. ??You also need to follow-up with??orthopedics and podiatry??for further management??of??your foot wound. Discharge Orders You Need to Schedule the Following Appointments Follow Up with??Chirag CARLSON, Abdon When??Within 1 to 2 weeks Where: [address] [place] [id number] Discharge Medications SHEREEN TAYLOR :1990 Visit Date:06/24/2022 Medications: Please continue your medications until treatment is completed or stopped by your provider. Medications not listed below should be discontinued. Discuss any questions related to medications with your provider. What How Much When Instructions Next Dose New Hydromorphone (HYDROmorphone 2 mg oral tablet) 1 tab(s) Oral Every 6 hours as needed for Pain , Severe Pickup at [facility] 3 ?As needed? Unchanged Albuterol (Albuterol (Eqv-ProAir HFA) 90 mcg/ inh inhalation aerosol) 2 puff(s) Inhalation Every 4 hours 4 PM Unchanged Amlodipine (amLODIPine 10 mg oral tablet) 1 tab(s) Oral Daily In?? the AM Unchanged Aspirin (Aspirin Low Dose 81 mg oral delayed release tablet) 1 tab(s) Oral Daily In the AM Unchanged Carvedilol (Coreg 25 mg oral tablet) 1 tab(s) Oral Twice a day Bedtime tonight Unchanged Docusate (Colace sodium 100 mg oral capsule) 1 capsule Oral Daily as needed for for constipation As needed Unchanged Doxycycline (doxycycline hyclate 100 mg oral tablet) 1 capsule Oral Every 12 hours Duration: 7 Days 9 PM tonight Unchanged Durable Medical Equipment (Pen Rogers, 31 G x 5 mm BD Ultra Fine III) See instructions Duration: 30 Days use as directed for Type 2 Diabetes Mellitus ?? Unchanged Ferrous Fumarate (ferrous fumarate 324 mg oral tablet) 1 tab(s) Oral Daily In the AM Unchanged Fluticasone Nasal (Flonase 50 mcg/ inh nasal spray) 1 spray(s) Nares, Both Twice a day Bedtime tonight Unchanged hydrALAZINE (hydrALAZINE 50 mg oral tablet) 1 tab(s) Oral 3 times a day 3 PM then Bedtime tonight Unchanged Isosorbide Mononitrate (isosorbide mononitrate 30 mg oral tablet, extended release) TAKE 1 TABLET BY MOUTH EVERY DAY ?? In the AM Unchanged Pantoprazole (pantoprazole 40 mg oral delayed release tablet) 1 tab(s) Oral Daily In the AM Unchanged Rosuvastatin (Crestor 5 mg oral tablet) 1 tab(s) Oral Daily Bedtime tonight Unchanged Scopolamine (scopolamine 1 mg/ 72 hr transdermal film, extended release) 1 Film Topically Every 72 hours Unchanged sodium bicarbonate (sodium bicarbonate 650 mg oral tablet) 1 tab(s) Oral 3 times a day 3 PM Unchanged torsemide (torsemide 20 mg oral tablet) 1 tab(s) Oral Twice a day Tonight at bedtime [facility] Information [facility]: [address], [place] [id number] [phone] Test Results Below is a partial list of the most recent Laboratory test results done prior to this discharge. You may have had other tests and procedures not included in this list. Please discuss all test resultswith your provider. Est Creatinine Clearance - 17.84 mL/min (06/28/2022) Alk Phos (06/27/2022) ???Alkaline Phosphatase - 92 units/L ALT (06/27/2022) ???ALT (SGPT) - 63 units/L AST (06/27/2022) ???AST (SGOT) - 10 units/L Basic Metabolic Panel (06/28/2022) ???Sodium - 132 mmol/L???Potassium - 4.2 mmol/L???Chloride - 101 mmol/L???Bicarbonate Level - 19 mmol/L???Anion Gap - 12???Glucose Level - 205 mg/dL???BUN - 57 mg/dL???Creatinine-Blood - 4.2 mg/dL???Estimated GFR Creatinine - 14 ML/MIN/1.73 M2???Calcium - 7.5 mg/dL BETA HYDROXYBUTYRATE (06/24/2022) ? ?Beta Hydroxybutyrate - <0.05 mmol/L BUN (06/27/2022) ???BUN - 53 mg/dL C-REACTIVE PROTEIN (06/24/2022) ???C-Reactive Protein - 0.7 mg/dL Calcium Level (06/27/2022) ???Calcium - 7.7 mg/dL CBC (06/28/2022) ???WBC - 4.1 k/mm3???RBC - 2.68 m/mm3???Hgb - 7.1 Gm/dL???Hct - 23.2 %???MCV - 86.6 femtoliters???MCH - 26.5 pg???MCHC - 30.6 g/dL???Platelet Count - 176 k/mm3???RDW-SD - 53.1 femtoliters???MPV - 12.7 femtoliters???Nucleated RBC (Automated) - 0.7 #/100 WBC'S???Abs. NRBC - 0.0 k/mm3 COMPLETE CBC WITH DIFF (06/24/2022) ???WBC - 5.9 k/mm3???RBC - 2.96 m/mm3???Hgb - 8.1 Gm/dL???Hct - 25.8 %???MCV - 87.2 femtoliters???MCH - 27.4 pg???MCHC - 31.4 g/dL???Platelet Count - 228 k/mm3???RDW-SD - 54.7 femtoliters???MPV - 12.4 femtoliters???Nucleated RBC (Automated) - 0.5 #/100 WBC'S???Abs. NRBC - 0.0 k/mm3???Abs. Neut - 4.8 k/mm3???Abs. Lymph - 0.4 k/mm3???Abs. [place] - 0.5 k/mm3???Abs. Eo - 0.1 k/mm3???Abs. Baso - 0.0 k/mm3???Neut % - 82.7 %???Lymph % - 6.7 %???[place] % - 7.9 %???Eos % - 2.1 %???Baso % - 0.3 %???Imm Gran - 0.3 %???Abs. Imm Gran - 0.0 k/mm3 Comprehensive Metabolic Panel (06/24/2022) ???Sodium - 136 mmol/L???Potassium - 4.1 mmol/L???Chloride - 107 mmol/L???Bicarbonate Level - 17 mmol/L???Anion Gap - 12???Glucose Level - 131 mg/dL???BUN - 53 mg/dL???Creatinine-Blood - 3.9 mg/dL???Estimated GFR Creatinine - 15 ML/MIN/1.73 M2???Calcium - 7.9 mg/dL???Protein, Total - 6.5 Gm/dL???Albumin - 3.5 Gm/dL???AG Ratio - 1.2???Alkaline Phosphatase - 133 units/L???AST (SGOT) - 31 units/L???ALT (SGPT) - 178 units/L???Bilirubin, Total - 0.5 mg/dL COVID-19 (Novel Coronavirus), Rapid PCR (06/24/2022) ???COVID-19 by RT-PCR - NEGATIVE Creatinine (06/27/2022) ???Creatinine-Blood - 3.9 mg/dL???Estimated GFR Creatinine - 15 ML/MIN/1.73 M2 D-DIMER (06/24/2022) ???D-Dimer - 7.39 mg/L FEU Electrolytes (06/27/2022) ???Sodium - 133 mmol/L???Potassium - 4.2 mmol/L???Chloride - 103 mmol/L???Bicarbonate Level - 18 mmol/L???Anion Gap - 12 GLUCOSE POC (06/28/2022) ???Glucose, POC - 146 mg/dL High Sensitivity Troponin T (06/24/2022) ???High Sensitivity Troponin (HSTnT) - 115 ng/L HOLD BLUE TUBE (06/24/2022) ???Hold Blue Top - SPECIMEN DISCARDED AFTER 4 HOURS. IRON & TIBC (06/28/2022) ???Iron Level - 18 mcg/dL???Iron Binding Capacity, Unsaturated - 258 mcg/dL???Iron Binding Capacity, Estimated Total - 276 mcg/dL???% Iron Saturation - 7 % Lipase (06/24/2022) ???Lipase - 85 units/L Mg Level (06/28/2022) ???Magnesium - 2.0 mg/dL BLOOD, QUALITATIVE (06/24/2022) ??? Serum Qual - NEGATIVE ProBNP (06/24/2022) ???Nt-Probnp - 90330 pg/mL SEDIMENTATION RATE,AUTOMATED (06/24/2022) ???Sed Rate - 47 mm/hr Troponin T, High Sensitivity (06/24/2022) ???High Sensitivity Troponin (HSTnT) - 106 ng/L Allergies (NKA means No Known Allergies) Zosyn??(angioedema) gabapentin??(Itching of tongue) traMADol??(Itching of tongue) morphine??(Itching) vancomycin??(Tightness in throat) Problems Active Problems??(15) Asthma?? Blindness of right eye?? Cardiac disease during , antepartum?? Care Coordination N-CP, Hakan Angel, CC ?? CKD (chronic kidney [...] Educational Leaflet Providered with your Discharge Instructions. Heart Failure Discharge Instructions for Heart Failure?? Torsemide Oral Tablet?? Discharge Instructions for Heart Failure?? Coping with Heart Failure?? Heart Failure: Making Changes to Your Diet?? Valuables and Belongings I fully understand and agree that [facility] accepts no responsibility for all my personal [...] patient Date for Pt to Sign Valuables/Belongings: 06/24/22 22:37:00 ?? Other Discharge Information ?? Wound Assessment?? Wound Assessment?? Wound Location I: Foot, left Wound Type I: Diabetic Wound I, Length: 4 cm Wound I, Width: 2 cm Wound I, Present on Admission: Yes Wound Location II: Foot, right Wound Type II: Diabetic Wound II, Length: 0.5 cm Wound II, Width: 0.5 cm Wound II, Present on Admission: Yes ?? Case Management Discharge Plan?? Discharge Plan?? Discharge Rx Program: Discharge Prescription Program ?? Pulmonary Rehab Status?? Pulmonary Rehab Discharge [...] are strongly encouraged to quit. Please call [facility] Link at [phone] or [phone] [phone]) or log in to [email or web address] for referrals to smoking cessation programs. ?? 237 Suicide & Crisis Lifeline is available 18/09 if you or someone you know needs to find a reason to keep living. By calling 911 you'll be connected to a skilled, trained counselor at a crisis center in your area. INPATIENT DISCHARGE INSTRUCTIONS SIGNATURE FRANKY SHEREEN TAYLOR Location:[facility] Registration Date and Time:06/24/2022 21:15 EDT Primary Care Physician: Chirag CARLSON, [facility], [place], have received the above patient education materials/instructions and have verbalized understanding. If ambulance or transport services are being used I further acknowledge beinggiven a choice of service. ?? If you need to contact me, please call me at this number: . Patient/Form Press Operator Name: Patient/Form Press Operator Signature: Relationship to Patient: Witness Name/Signature: Date: * Holly Olivares RN: PERFORM Event Display: Patient Education Leaflets Authored Date: [id number] Heart Failure Discharge Instructions for Heart Failure ?? 153 Discharge Instructions for Heart Failure The heart is a muscle that pumps oxygen-rich blood to all parts of the body. When you have heart failure, the heart is not able to pump as well as it should. Blood and fluid may back up into the lungs (congestive heart failure), and some parts of the body don ???t get enough oxygen-rich blood to work normally. These problems lead to the symptoms of heart failure. Heart failure can occur due to aninjury to the heart or from natural processes. You can control symptoms of heart failure with some lifestyle changes and by following your doctor's advice. Home care Activity Ask your healthcare provider about an exercise program. You can benefit from simple activities suchas walking or gardening. Exercising most days of the week can make you feel better. Don't be discouraged if your progress is slow at first. Rest as needed. Stop activity if you develop symptoms such as chest pain, lightheadedness, or significant shortness of breath. Find activities that you enjoy, such as brisk walking, dancing, swimming, or gardening. These will help you stay active and strengthen your heart. Diet Follow a heart healthy diet. And make sure to limit the salt (sodium) in your diet. Salt causes your body to hold water. This makes your heart work harder as there is more fluid for the heart to pump. Limit your salt by doing the following: ??? Limit canned, dried, packaged, and fast foods. ??? Don't add salt to your food. ??? Season foods with herbs instead of salt. ??? Watch how much liquids you drink. Drinking too much can make heartfailure worse. Talk with your health care provider about how much you should drink each day. ??? Limit the amount of alcohol you drink. It may harm your heart. Women should have no more than 1 drink a day and men should have no more than 2. ??? When you eat out, request that your meals have no added salt. Tobacco If you smoke, it's very important to quit. Smoking increases your chances of having a heart attack by harming the blood vessels that provide oxygen to your heart. This makes heart failure worse. Quitting smoking is the number one thing you can do to improve your health. Enroll in a stop-smoking program to improve your chances of success. Talk with your healthcare provider??about medicines or nicotine replacement therapy to help you quit smoking. Ask your healthcare provider about smoking cessation support groups. Medicine Take your medicines exactly as prescribed. Learn the names and purpose of each of your medicines. Keep an accurate medicine list and current dosages with you at all times. Don't skip doses. If you miss a dose of your medicine, take it as soon as you remember. If you miss a dose and??it's almost time for your next dose, just wait and take your next dose at the normal time. Don't take a double dose. If you are unsure, call your doctor's office. Make sure not to mix up your medicines or forget what you've taken the same day. Weight monitoring Weigh yourself every day. A sudden weight gain can mean your heart failure is getting worse. Weigh yourself at the same time of day and in the same kind of clothes. Ideally, weigh yourself first thing in the morning after you empty your bladder, but before you eat breakfast. Your healthcare provider will show you how to track your weight. He or she will also discuss with you when you should call if you have a sudden, unexpected increase in your weight. In general, your healthcare provider may ask you to report if your weight goes up by more than 2 pounds in 1 day,?? 5 pounds in 1 week, or whatever weight gain you were told by your doctor. This is asign that you are retaining more fluid than you should be. Clues to weight gain include checking your ankles for swelling, or noticing you are short of breath when you lie down. Follow-up care Make a follow-up appointment as directed. Depending on the type and severity of heart failure you have, you may need follow-up as early as 7 days from hospital discharge. Keep appointments for checkups and lab tests that are needed to check your medicines and condition. Recognize that your health and even survival depend on your following medical recommendations. Symptoms Heart failure can cause a variety of symptoms, including: ??? Shortness of breath ??? Trouble breathing at night, especially when you lie down ??? Swelling in the legs and feet or in the belly (abdomen) ??? Becoming easily fatigued ??? Irregular or rapid heartbeat ??? Weakness or lightheadedness ??? Swelling of the neck veins It is important to know what to do if symptoms get worse or if you develop signs of worsening heartfailure. ?? When to see your healthcare provider Call your doctor right away if you have any of these signs of worsening heart failure: ??? Sudden weight gain (more than 2 pounds in 1 day or 5??pounds in 1 week, or whatever weight gainyou were told to report by your doctor) ??? Trouble breathing not related to being active ??? New or increased swelling of your legs or ankles ??? Swelling or pain in your abdomen ??? Breathing trouble at night (waking up short of breath, needing more pillows to breathe) ??? Frequent coughing that doesn't go away ??? Feeling much more tired than usual Call 911 Call 911 right away if you have: ??? Severe shortness of breath, such that you can't catch your breath even while??resting ??? Severe chest pain that does not resolve with rest or nitroglycerin ??? Sexton, foamy mucus with cough and shortness of breath ??? A continuous rapid or irregular heartbeat ??? Passing out or fainting ??? Stroke symptoms such as sudden numbness or weakness on one side of your face, arm, or leg or sudden confusion, trouble speaking or vision changes ? Please refer to the Heart Failure Handbook for more information. ? * Favian Marie DO: PERFORM Event Display: Patient Education Leaflets Authored Date: [id number] Torsemide Oral Tablet ?? [id number] Torsemide Oral Tablet Brands: [employer] Uses This medicine is used for the following purposes: ??? high blood pressure ??? swelling ?? Instructions This medicine may be taken with or without food. This medicine will work best if you take it at about the same time every day. Keep the medicine at room temperature. Avoid [...] not take 2 doses at one time. Drug interactions can change how medicines work or increase risk for side effects. Tell your healthcare providers about all medicines taken. Include prescription and dkkp-iii-kvvrtcs medicines, vitamins, and herbal medicines. Speak with your doctor or pharmacist before starting or stopping any medicine. Tell your doctor if symptoms do not get better or if they get worse. Talk to your doctor before taking other medicines, including aspirins and ibuprofen containing products. Speak to your doctor about which medicines are safe to use while you are on this medicine. This medicine may affect your blood sugar [...] unexplained tiredness or weakness ??? urinating less often??? difficulty or discomfort urinating A few people may have an allergic reaction to this medicine. Symptoms can include difficulty breathing, skin rash, itching, swelling, or severe dizziness. If you notice any of these symptoms, seek medical help quickly. ?? Extra Please speak with your doctor, nurse, or pharmacist if you have any questions about this medicine. ?? [email or web address] IMPORTANT NOTE: This document tells you briefly how to take your medicine, but it does not tell youall there is to know about it. Your doctor or pharmacist may give you other documents about your medicine. Please talk to them if you have any questions. Always follow their advice. There is a more complete description of this medicine available in [place]. Scan this code on your smartphone or tablet or use the web address below. You can also ask your pharmacist for a printout. If you have any questions, please ask your pharmacist. The display and use of this drug information is subject to Terms of Use. Copyright(c) 2022 [employer]. ?? [employer]. All rights reserved. This information is not intended as a substitute for professional medical care. Always follow your healthcare professional's instructions. ?? * Favian Marie DO: PERFORM Event Display: Patient Education Leaflets Authored Date: [id number] Discharge Instructions for Heart Failure ?? 04668 Discharge Instructions for Heart Failure The heart is a muscle that pumps oxygen-rich blood to all parts of the body. When you have heart failure, the heart is not able to pump as well as it should. Blood and fluid may back up into the lungs. Some parts of the body don???t get enough oxygen-rich blood to work normally. These problems leadto the symptoms of heart failure. Heart failure can occur because of an injury to the heart or from natural processes.??You can control symptoms of heart failure with some lifestyle changes and by following your doctor's advice. Activity Ask your healthcare provider about an exercise program. Simple activities such as walking or gardening can help. Exercising most days of the week can make you feel better. Don't be discouraged if your progress is slow at first. Rest as needed. Stop activity if you get symptoms such as chest pain, lightheadedness, or shortness of breath. Find activities that you enjoy. Examples might be brisk walking, dancing, swimming, and gardening. These will help you stay active and strengthen your heart. Ask your healthcare provider about cardiac rehab. This is a program that helps you to exercise safely. ?? Diet Follow a heart healthy diet. And make sure to limit the salt (sodium) in your diet. Salt causes your body to hold water. This makes your heart work harder because there is more fluid for the heart topump. Limit your salt as directed by your healthcare provider by doing the following: ??? Limit canned, dried, packaged, and fast foods. ??? Don't add salt to your food. ??? Season foods with herbs instead of salt. ??? Watch how much liquids you drink. Drinking too much can make heart failure worse. Talk with your healthcare provider about how much you should drink each day. ??? Limit the amount of alcohol you drink. It may harm your heart. Women should have no more than 1 drink a day. Men should have no more than 2 a day. ??? Ask that your meals have no added salt when you eat out. ??? Talk with your healthcare provider before using salt substitutes. They often have potassium in them. Thismay not be good for your health. This will depend on how well your kidneys are working and what medicines you???re taking. Some people need extra potassium. Others don???t. ?? Tobacco It's important to quit if you smoke. Smoking increases your chances of having a heart attack by harming the blood vessels that provide oxygen to your heart. This makes heart failure worse. Quitting smoking is the number one thing you can do to improve your health. Enroll in a stop-smoking program to improve your chances of success. Talk with your healthcare provider??about medicines or nicotine replacement therapy. Also ask your healthcare provider about smoking cessation support groups. ?? Medicine Take your medicines exactly as prescribed. Learn the names and purpose of each of your medicines. Keep an accurate medicine list and current dosages with you at all times. Don't skip doses. If you miss a dose of your medicine, take it as soon as you remember. If you miss a dose and??it's almost time for your next dose, just wait and take your next dose at the normal time. Don't take a double dose. If you are unsure, call your doctor's office. Make sure not to mix up your medicines or forget what you've taken the same day. Refill your prescriptions before you run out of medicine. Talk with your healthcare provider if you have trouble with the cost of your medicines. ?? Weight monitoring Weigh yourself every day. A sudden weight gain can mean your heart failure is getting worse. Weigh yourself at the same time of day and in the same kind of clothes. Ideally, weigh yourself first thing in the morning after you empty your bladder, but before you eat breakfast. Your healthcare provider will show you how to track your weight. They will also tell you when you should call if you have asudden, unexpected increase in your weight. In general, your healthcare provider may ask you to report if your weight goes up by more than 2 pounds in 1 day,?? 5 pounds in 1 week, or whatever weight gain you were told by your doctor. This is asign that you are retaining more fluid than you should be. Clues to weight gain include checking your ankles for swelling, or noticing you are short of breath when you lie down. ?? Follow-up care Have a follow-up appointment as instructed. Depending on the type and severity of heart failure youhave, you may need follow-within 7 days from hospital discharge. Keep appointments for checkups andlab tests that are needed to check your medicines and condition. Recognize that your health and even survival depend on you following your provider's advice. ?? Symptoms Heart failure can cause a variety of symptoms. They include: ??? Shortness of breath ??? Trouble breathing at night, especially when you lie down ??? Swelling in the legs and feet or in the belly (abdomen) ??? Becoming easily tired ??? Irregular or rapid heartbeat ??? Weakness or lightheadedness ??? Swelling of the neck veins It's important to know what to do if symptoms get worse or if you develop signs of worsening heart failure. Keep track of how you feel each day. Report any changes to your healthcare provider. ?? When to call your healthcare provider Call your healthcare provider right away if you have any of these signs of worsening heart failure:??? Sudden weight gain. This means more than 2 pounds in 1 day or 5??pounds in 1 week, or whatever weight gain you were told to report by your doctor. ??? Trouble breathing not related to being active ??? New or increased swelling of your legs or ankles ??? Swelling or pain in your abdomen ??? Breathing trouble at night. This means waking up short of breath or needing more pillows to breathe. ???Frequent coughing that doesn't go away ??? Feeling much more tired than usual ?? Call 911 Call 911 right away if you have: ??? Severe shortness of breath, such that you can't catch your breath even while??resting ??? Severe chest pain that does not resolve with rest or nitroglycerin ??? Sexton, foamy mucus with cough and shortness of breath ??? An ongoing rapid or irregular heartbeat ??? Passing out or fainting ??? Stroke symptoms such as sudden numbness or weakness on one side of your face, arm, or leg or sudden confusion, trouble speaking or vision changes ?? Last Reviewed Date: 2021 ?? 8485-0922 [employer]. All rights reserved. This information is not intended as a substitute for professional medical care. Always follow your healthcare professional's instructions. ?? Portable XR Chest Views * CLIFFSPtomasscriadina , CIS S: TRANSCRIConstanza Melendez MD: VERIFY Event Display: Result: Authored Date: [id number] Chest Portable Reason: Shortness of Breath; Clinical Question(s): CHF COMPARISON: Priors, most recent dated 06/21/2022 FINDINGS: LINES AND TUBES: None. LUNGS AND PLEURA: Redemonstrated is bilateral central vascular congestion and mild perivascular haziness and hazy airspace opacities in bilateral lower lungs. No pleural effusion. No pneumothorax. Slight thickening of the right minor fissure. HEART, MEDIASTINUM AND WINSTON: Prominent cardiac silhouette. Normal mediastinal and hilar contour. BONES AND SOFT TISSUES: No acute abnormality. IMPRESSION: Persistent bilateral central vascular congestion and mild perivascular haziness, especially in the lung bases, suggestive of mild CHF/pulmonary edema. WSN: [id number] Ordering Physician: Lala Maya Dictated By: Constanza Fofana MD Dictated Date/Time: 06/24/22 5:40 pm Reviewed By: Constanza Fofana MD Signed By: Constanza Fofana MD Signed Date/Time: 06/24/22 5:40 pm Transcribed By: ALEXIS Transcribed Date/Time: 06/24/22 5:38 pm XR Foot - left GE 3 Views * [facility] , CIS S: TRANSCRIBE iMhai Hernandez MD: VERIFY Event Display: Result: Authored Date: [id number] Foot Min 3 Views Left, 3 views Hx of Present Illness: reports sob past couple days, leg swelling. 9 10 h a, r shoulder, rib, and lfoot pain. wound on bottom of foot following piece of floor tile getting stuck in foot x1 mo ago. reports improving. d c ystdy s p admit for htn, fluid in lungs , leg swelling; Reason: Other:; Clinical Question(s): Osteomyelitis COMPARISON: 06/22/2022 100 03/12/2022 exam reviewed. FINDINGS: Chronic postsurgical and degenerative changes again noted: Mid shaft amputation first metatarsal. Severe chronic deformity/postoperative change distal fourth metatarsal and IP joint, with moderate, chronic periosteal thickening and bone formation along the shaft of the fourth metatarsal. Mild, chronic periosteal thickening along the shafts of the second and third metatarsals. Amputation fifth digit MTP joint. Severe deformity and sclerosis and partial collapse of the navicular, cuneiforms. Severe chronic deformity of the second and third TMT joint regions. Flattened arch. No findings to suggest acute bony erosion or osteomyelitis. No evidence of deep soft tissue gas, but there is chronic forefoot and plantar soft tissue swelling. In addition, the plantar surface, there is a superficial fibroid or ulceration beneath the posterior midfoot. IMPRESSION: No findings of osteomyelitis or other acute bony abnormality. Superficial plantar ulcer without evidence of radiopaque foreign matter. WSN: [id number] Ordering Physician: Lala Maya Dictated By: Mihai Hernandez MD Dictated Date/Time: 06/24/22 7:11 pm Reviewed By: Mihai Hernandez MD Signed By: Mihai Hernandez MD Signed Date/Time: 06/24/22 7:11 pm Transcribed By: ALEXIS Transcribed Date/Time: 06/24/22 7:05 pm CTA Chest vessels W contrast IV * [facility] , CIS S: TRANSCRIBE Ct CARLSON, Constanza: VERIFY Shanda Vanegas MD: SIGN Event Display: Result: Authored Date: EXAMINATION: CT Angio Chest INDICATION: Refer to EMR; Hx of Present Illness: reports sob past couple days, leg swelling. 9 10 miller, r shoulder, rib, and l foot pain. wound on bottom of foot following piece of floor tile getting stuck in foot x1 mo ago. reports improving. d c ystdy s p admit for htn, fluid in lungs , leg swelling; Reason: PE suspected, Intermediate prob, positive D-dimer; Clinical Question(s): Pulmonary Embolism TECHNIQUE: Spiral CTA of the chest was performed after rapid IV contrast administration without cardiac gating, triggered by an KECIA on the main pulmonary artery. Images are formatted in multiple planes using 2-D multiplanar and 3-D maximum intensity projection. 50 cc of Omnipaque 300 was administered intravenously. Weight-based protocol using automatic tube modulation was used to optimize exposure parameters. CTDIvol Body: 7.58 mGy, DLP Body: 289 mGy*cm. COMPARISONS: Multiple priors, most recent CTA chest 02/26/2022 ANGIOGRAPHIC FINDINGS: No pulmonary embolism to the subsegmental level. Normal caliber pulmonary arteries. No acute aortic abnormality seen on this study performed without cardiac gating. 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 Trachea and Airways: Patent without evidence of tracheal or endobronchial lesion. Lungs and Pleura: Mild bibasilar atelectasis. Small left pleural effusion, decreased in size from prior exam. Slight decrease in size of moderate right pleural effusion. No pneumothorax. Mediastinum and winston: No mass or hematoma. Unchanged mildly prominent 0.9 cm right paratracheal lymph node (series 301: Image 18). No hilar lymphadenopathy. No esophageal abnormality. Normal thyroid. Heart: Heart is normal in size. Small to moderate pericardial effusion is not significantly changedfrom prior exam. No coronary arterial calcifications. Chest Wall Soft Tissues: Normal. Diaphragm and upper abdomen: No significant abnormality. Bones: No acute abnormality. Old healed fracture of the right eighth lateral rib. IMPRESSION: No CT evidence of pulmonary embolism. No significant change in dgij-nl-bdrlofsm pericardial effusion. Small left pleural effusion, decreased in size from prior exam. Slight decrease in size of moderateright pleural effusion. Mild bibasilar atelectasis. I have personally reviewed the images and I agree with this report. WSN: [id number] Ordering Physician: Lala Maya Dictated By: Shanda Vanegas MD Dictated Date/Time: 06/24/22 7:45 pm Reviewed By: Constanza Fofana MD Signed By: Constanza Fofana MD Signed Date/Time: 06/24/22 7:50 pm Transcribed By: ALEXIS Transcribed Date/Time: 06/24/22 7:20 pm XR Abdomen AP * [facility] , CIS S: TRANSCRIBE Angeles Pittman MD: VERIFY Event Display: Result: Authored Date: [id number] XR Abdomen AP 1 view INDICATION/CLINICAL QUESTION: Reason: Nausea Vomiting; Clinical Question(s): Obstruction COMPARISON: 03/26/2022. FINDINGS: There is a nonobstructive bowel gas pattern. Free intraperitoneal air cannot be assessed on supine view alone. No organomegaly, masses or calcifications. No acute bone findings. Again seen are the discogenic degenerative changes at L4-L5 with disc spacenarrowing. There are surgical clips in the left upper abdomen. IMPRESSION: There is no evidence of acute pathology. WSN: [id number] Ordering Physician: Jessica Garrison Dictated By: Angeles Pittman MD Dictated Date/Time: 06/25/22 6:46 am Reviewed By: Angeles Pittman MD Signed By: Angeles Pittman MD Signed Date/Time: 06/25/22 6:46 am Transcribed By: ALEXIS Transcribed Date/Time: 06/25/22 6:43 am Patient Care team information Care Team Personnel Name: Cheryle Warren RN Position: [facility] RN Member Role: Primary Care Nurse Name: Elizabeth Cabezas Position: [facility] RN Member Role: Primary Care Nurse Name: Anuradha Morris RN Position: [facility] RN Member Role: Primary Care Nurse Name: Samantha Reynolds RN Position: [facility] RN Member Role: Primary Care Nurse Name: Omega Gillespie RN Position: [facility] RN Member Role: Primary Care Nurse Name: Doreen Estrada RN Position: [facility] RN Member Role: Primary Care Nurse Name: Paty Kelly RN Position: [facility] RN Member Role: Primary Care Nurse Name: Sonia Malone Position: [facility] RN Member Role: Primary Care Nurse Name: Keira Desai RN Position: [facility] RN Member Role: Primary Care Nurse Name: Gomez Moseley RN Position: [facility] RN Supv Member Role: Primary Care Nurse Name: Vashti Bruce RN Position: [facility] RN Member Role: Primary Care Nurse Name: Raghav Granger Position: [facility] RN Member Role: Primary Care Nurse Name: Cassy Caraballo RN Position: [facility] RN Member Role: Primary Care Nurse Name: Jodi Carrillo RN Position: [facility] RN Member Role: Primary Care Nurse Name: Abbey Shelley RN Position: [facility] RN Member Role: Primary Care Nurse Name: Larissa Barnett RN Position: [facility] RN Member Role: Primary Care Nurse Name: Inna Beckwith RN Position: [facility] RN Member Role: Primary Care Nurse Name: Cady Araya RN Position: [facility] RN Member Role: Primary Care Nurse Name: Abdon Beard MD Position: [facility] Outreach Member Role: PCP Address: Address: [address] [place] [id number]- Name: Anuradha Frank Position: [facility] RN Member Role: Primary Care Nurse Name: Renetta Correia RN Position: [facility] RN Member Role: Primary Care Nurse Name: Michele Blancas DO Position: [facility] Renal MD Member Role: Lifetime Consulting Physician Address: Address: [address] [place] [address] [address] [facility] [place] [address]- [place] Name: María Acosta RN Position: [facility] RN Member Role: Primary Care Nurse Name: Treasure Gilbert RN Position: [facility] RN Supv Member Role: Primary Care Nurse Name: Farzana Sevilla Position: [facility] RN Member Role: Primary Care Nurse Name: Javan Pimentel MD Position: [facility] Renal MD Member Role: Lifetime Consulting Physician Address: Address: [address] [place] [address] [address] [facility] [place] [address]- Name: Heather Pal RN Position: [facility] RN Member Role: Primary Care Nurse Name: Jody Rasmussen RN Position: [facility] RN Member Role: Primary Care Nurse Name: Luisa Devine RN Position: [facility] RN Member Role: Primary Care Nurse Name: Mau Hazel RN Position: [facility] RN Member Role: Primary Care Nurse Name: Pedro Taylor RN Position: [facility] RN Member Role: Primary Care Nurse Name: Charlotte Singletary RN Position: [facility] OB RN Member Role: Primary Care Nurse Name: Alison Jose RN Position: [facility] RN Member Role: Primary Care Nurse Name: Kendall Coleman RN Position: [facility] RN Member Role: Primary Care Nurse Name: Nancy Fair RN Position: [facility] SN RN Member Role: Primary Care Nurse Name: Sofie Reed Position: [facility] RN Member Role: Primary Care Nurse Name: Kasia Vital RN Position: [facility] RN Member Role: Primary Care Nurse Name: Fernando Siddiqi MD Position: [facility] Renal MD Member Role: Lifetime Consulting Physician Address: Address: [address] [place] [address] [facility] [place] [address]- Name: Kaelyn [place] RN Position: [facility] RN Member Role: Primary Care Nurse Name: Lianne Byrnes RN Position: [facility] RN Member Role: Primary Care Nurse Name: Tona Jacome LPN Position: [facility] RN Member Role: Primary Care Nurse Name: Tatiana Madrigal RN Position: [facility] RN Member Role: Primary Care Nurse Name: Ashely Riley RN Position: [facility] RN Member Role: Primary Care Nurse Name: Vy RAMIREZ Attending Position: [facility] ED Medicine MD Name: Lala Maya DO Position: [facility] Resident Member Role: ED Resident Address: Address: [address] [place] [address] [place] [address]- [place] Name: Michael Williamson RN Position: [facility] ED RN W/OE and Tasks Member Role: Patient Care Provider Name: Julia Melara Position: [facility] ED OA Charge Care Team Related Persons Name: CMFARLANDADI BUSTAMANTEO Address: home [address] [place] [address] Name: REJI TAYLOR Address: [address] [place] [address] Name: JEFF CHAPMAN Address: [id number] Address: home [address] [address] [place] Name: ELI BONILLA Address: home [address] [address]
--- OUTSIDE RECORDS SUMMARY | 2022-07-06 18:44 | XMS_ITS | Continuity of Care Document ---
Author Name Unknown Organization [facility] ter Address [address] [place] [id number] Care Team Providers Care Belly Packer Name Role Phone Chirag CARLSON, Abdon Primary Care Physician Encounter [facility] Date(s): 06/21/22 - 06/23/[address] [id number] Encounter Diagnosis CHF (congestive heart failure)(Final) - 06/22/22 Discharge Disposition: A-D/C Home Attending Physician: Cynthia Willis MD Admitting Physician: Cash Knight MD Referring Physician: Not on Staff, Referring [...] 06/23/22 9:43:00 EDT, Route to Pharmacy Electronically, [facility]/pharmacy #[id number], Partial fill upon patient request if the prescription is for a schedule II opioid drug.... Start Date: 06/23/22 Status: Ordered amLODIPine 10 mg oral tablet 10 mg, Tablet, By Mouth, 06/23/22 9:00:00 EDT Start Date: 06/23/22 Stop Date: 06/23/22 Status: Completed Aspirin Low Dose 81 mg oral delayed release tablet 1 tablet = 81 mg, By Mouth, Daily, Maintenance, 02/13/22 11:23:00 EST, CR Tablet, ; Start Date: 02/13/22 Status: Ordered Colace sodium 100 mg oral capsule 100 mg, 1, capsule, By Mouth, Daily, PRN, # 100 capsule, Refills 2, Tot. Refills 2, Maintenance, for constipation, 06/23/22 9:49:00 EDT, Route to Pharmacy Electronically, [facility]/pharmacy #[id number], Partial fill upon patient request if the prescription is for... Start Date: 06/23/22 Status: Ordered Coreg 25 mg oral tablet 25 mg, 1, tablet, By Mouth, 2 times a day, # 60 tablet, Refills 0, Tot. Refills 0, Maintenance, 03/29/22 12:11:00 EST, Route to Pharmacy Electronically, [facility]/pharmacy #[id number], Partial fill upon patient request if the prescription is for a schedule II opi... Start Date: 03/29/22 Status: Ordered Coreg 25 mg oral tablet 25 mg, Tablet, By Mouth, 06/23/22 9:00:00 EDT Start Date: 06/23/22 Stop Date: 06/23/22 Status: Completed Crestor 5 mg oral tablet 1 tablet = 5 mg, By Mouth, Daily, # 30 tablet, 0 Refills, Maintenance, 01/19/22 13:30:00 EST, Tablet, [facility]/pharmacy #[id number], Partial fill upon patient request if the prescription is for a schedule II opioid drug., 160, cm, 01/19/22 8:55:00 EST, Height, 9... Start Date: 01/19/22 Status: Ordered Dilaudid Inj 0.5 mg, Injection, IV Push Slowly, Once, STAT, 06/21/22 23:42:00 EDT, Stop date 06/21/22 23:42:00 EDT Start Date: 06/21/22 Stop Date: 06/22/22 Status: Completed Dilaudid Inj 0.5 mg, Injection, IV Push Slowly, Every 4 hours, Hold for: lethargy or hypoxia, PRN for Pain , Severe, Routine, 06/22/22 11:57:00 EDT Start Date: 06/22/22 Stop Date: 06/23/22 Status: Discontinued doxycycline hyclate 100 mg oral tablet 1 capsule, By Mouth, Every 12 hours, for 7 days, # 14 capsule, 0 Refills, Acute 06/30/22 9:48:00 EDT, 06/23/22 9:48:00 EDT, Capsule, [facility]/pharmacy #[id number], Partial fill upon patient request if the prescription is for a schedule II opioid drug., 167.64, c... Start Date: 06/23/22 Stop Date: 06/30/22 Status: Ordered ferrous fumarate 324 mg oral tablet 1 tablet = 324 mg, By Mouth, Daily, # 90 tablet, 0 Refills, Maintenance, 06/23/22 9:49:00 EDT, Tablet, [facility]/pharmacy #[id number], Partial fill upon patient request if the prescription is for a schedule II opioid drug., 167.64, cm, 06/23/22 8:42:00 EDT, Heigh... Start Date: 06/23/22 Status: Ordered Flonase 50 mcg/inh nasal spray 1 sprays, Nares, Both, 2 times a day, # 16 Gm, 0 Refills, Maintenance, 03/10/22 13:15:00 EST, [place], [facility], Partial fill upon patient request if the prescription is for a schedule II opioid drug., 1 sprays Nares, Both 2 times a day,... Start Date: 03/10/22 Status: Ordered hydrALAZINE 25 mg oral tablet 50 mg, Tablet, By Mouth, 06/23/22 9:00:00 EDT Start Date: 06/23/22 Stop Date: 06/23/22 Status: Completed hydrALAZINE 50 mg oral tablet 1 tablet = 50 mg, By Mouth, 3 times a day, # 90 tablet, 2 Refills, Maintenance, 06/23/22 9:42:00 EDT, Tablet, [facility]/pharmacy #[id number], Partial fill upon patient request if the prescription is for a schedule II opioid drug., 167.64, cm, 06/23/22 8:42:00 EDT... Start Date: 06/23/22 Status: Ordered isosorbide mononitrate 30 mg oral tablet, extended [...] Weight Start Date: 03/10/22 Status: Ordered Pen [place], 31 G x 5 mm BD Ultra Fine III See Instructions, # 100 each, Refills 5, Tot. Refills 5, Maintenance, use as directed for Type 2 Diabetes Mellitus, 03/10/22 13:55:00 EST, Supply, 170, cm, 03/10/22 10:58:00 EST, Height, 88, kg, 02/26/22 23:01:00 EST, Dry Weight Start Date: 03/10/22 Stop Date: 09/06/22 Status: Ordered Reglan 5 mg oral tablet 1 tablet = 5 mg, By Mouth, 3 times a day before meals, PRN Nausea & Vomiting, for 5 days, # 15 tablet, 0 Refills, Acute 06/28/22 9:44:00 EDT, 06/23/22 9:44:00 EDT, Tablet, [facility]/pharmacy #[id number], Partial fill upon patient request if the prescription is fo... Start Date: 06/23/22 Stop Date: 06/28/22 Status: Ordered scopolamine 1 mg/72 hr transdermal film, extended release 1 film, Topically, Every 72 hours, # 4 each, 0 Refills, Maintenance, 03/10/22 13:17:00 EST, [facility], Partial fill upon patient request if the prescription is for a schedule II opioiddrug., 1 film Topically Every 72 hours, 170, cm, 01... Start Date: 03/10/22 Status: Ordered sodium bicarbonate 650 mg oral tablet 1 tablet = 650 mg, By Mouth, 3 times a day, # 100 tablet, 2 Refills, Maintenance, 06/23/22 9:43:00 EDT, Tablet, [facility]/pharmacy #[id number], Partial fill upon patient request if the prescription is for a schedule II opioid drug., 167.64, cm, 06/23/22 8:42:00 E... Start Date: 06/23/22 Status: Ordered torsemide 20 mg oral tablet 1 tablet = 20 mg, By Mouth, 2 times a day, # 30 tablet, 0 Refills, Maintenance, 03/10/22 13:14:00 EST, Tablet, [facility], Partial fill upon patient [...] Active Migraine 5 Confirmed Active Care Coordination [facility], Hakan Angel, CC Confirmed Active 1Managed by PCP. WEll controlled. 2Self-manages. States currently stable. No medications. 3Not seem at [facility] since 08/12/2016. Multiple no show in our center. She is seen by other provider Dr Matt Gutierrez by pharmacy records. 4Managed by PCP 5Managed by PCP with Tylenol Results Orders for Microbiology Reports Name Date Wound Deep Culture w/ Gram Smear 06/22/22 Microbiology Reports TEST:Deep Wound Culture STATUS:Unauthenticated BODY SITE: SOURCE:DISCHA COLLECTED DATE/TIME:06/22/22 2:03 AM Deep Wound Culture SPECIMEN DESCRIPTION : DISCHARGE FOOT LT SPECIAL REQUESTS : NONE GRAM STAIN : 1+ POLYMORPHONUCLEAR LEUKOCYTES 1+ SQ.EPITHELIAL CELLS 1+ GRAM POSITIVE COCCI 3+ GRAM POSITIVE RODS CULTURE : 4+ STAPHYLOCOCCUS AUREUS. This isolate was identified using Maldi-TOF system REPORT STATUS : PRELIMINARY REPORT Radiology Reports * Exam Date Time Procedure Performing Provider Status 06/22/22 2:[address] Head/Brain W/O Contrast Ivette Chapman (Verified) Notes: (CT Head/Brain W/O Contrast) Reason For Exam: HTN urgency, projectile vomit, headache;Headache(s) RESULT: CT Head/Brain W/O Contrast CT Head/Brain W/O Contrast INDICATION: Headache, hypertensive urgency. TECHNIQUE: Noncontrast head CT using axial technique and reconstructed in axial and coronal planes.Iterative reconstruction techniques are used to optimize dose and image quality. CTDIvol Head: 48.20 mGy, DLP Head: 772 mGy*cm. COMPARISON: 04/07/2022. FINDINGS: Powertrain Design Engineer view findings, lines and tubes: None. BRAIN AND EXTRA-AXIAL SPACES: No parenchymal hemorrhage, midline shift, or mass effect. Ventura-white matter differentiation is wellpreserved. No acute infarct. Negative insular ribbon sign. Atherosclerotic vascular calcification of the carotid arteries but negative hyperdense vessel sign. Mild stable prominence of the ventricles. No white matter lesions. No subarachnoid hemorrhage. No subdural or epidural collection. CALVARIUM, SKULL BASE, AND SOFT TISSUES: No fractures or suspicious bony lesions. The paranasal sinuses and mastoid air cells are clear. Visualized orbits and globes are intact. The extracranial soft tissues are unremarkable. IMPRESSION: No acute intracranial pathology. I have personally reviewed the images and I agree with this report. WSN: [id number] Ordering Physician: Cynthia Willis Dictated By: Shahriar[Radiology] Flex CARLSON Dictated Date/Time: 06/22/22 3:19 pm Reviewed By: Kareem Ackerman MD Signed By: Kareem Ackerman MD Signed Date/Time: 06/22/22 3:24 pm Transcribed By: ALEXIS Transcribed Date/Time: 06/22/22 2:31 pm * Exam Date Time Procedure Performing Provider Status 06/22/22 9:27 AM Foot Min 3 Views Left Marly Cabezas; Auth (Verified) Notes: (Foot Min 3 Views Left) Reason For Exam: Pain RESULT: Foot Min 3 Views Left Foot Min 3 Views Left, 3 views Reason: Pain; Clinical Question(s): Osteomyelitis. COMPARISON: Left foot radiographs dated 03/12/2022. 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 Unchanged deformity of the fourth metatarsal distally. Periosteal new bone formation along the lateral aspect of the second and third metatarsals is not significantly changed. Unchanged malalignment of the tarsometatarsal joints with bony fragmentation superiorly deformity of the navicular. Within the interspace between the first and second metatarsalbases is unchanged. No focal soft tissue swelling or radiopaque foreign body. IMPRESSION: Chronic findings as above with no findings to suggest acute osteomyelitis. WSN: [id number] Ordering Physician: Flora Baker Dictated By: Emy Campbell MD Dictated Date/Time: 06/22/22 10:37 a Reviewed By: Emy Campbell MD Signed By: Emy Campbell MD Signed Date/Time: 06/22/22 10:37 am Transcribed By: CSJenifer Transcribed Date/Time: 06/22/22 10:20 am * Exam Date Time Procedure Performing Provider Status 06/21/22 10:[address] Abdomen and Pelvi s W/O Contrast Kathleen Noriega; Auth (Verified) Notes: (CT Abdomen and Pelvis W/O Contrast) Reason For Exam: Flank pain, kidney stone suspected;Other: RESULT: CT Abdomen and Pelvis W/O Contrast PROCEDURE: CT Abdomen and Pelvis W/O Contrast CLINICAL INDICATION: 31 years old Female with Hx of Present Illness: Pt c o LUQ abdm pain, cough. Wound on left foot, not healing. Increased edema RLE; Reason: Other:; Flank pain, kidney stone suspected; Clinical Question(s): Calculus; left Side flank, elevated LFTs; Order Comment:. TECHNIQUE: Helical 3 mm axial images obtained of the abdomen and pelvis without IV contrast. Coronal and sagittal reformations performed. Enteric contrast not given. Weight-based protocol using automatic tube modulation utilized to optimize exposure parameters. CTDIvol Body: 22.17 mGy, DLP Body: 1112 mGy*cm. COMPARISONS: 03/25/2022. FINDINGS: Lung Bases: Similar moderate volume right pleural effusion. Trace left pleural effusion is decreased since the prior CT. Partially imaged pericardial effusion. Liver: Portions of the cephalad aspect not imaged. Unremarkable as visualized on this unenhanced exam. Gallbladder: Absent consistent with prior cholecystectomy. Bile ducts: No intra or extra hepatic bile duct dilation. Spleen: Portions of the cephalad aspect not imaged. Unremarkable as visualized on this unenhanced exam. Pancreas: Normal. Adrenal Glands: Normal. Kidneys, ureters and bladder: Kidneys are normal in size and location. No evidence of calculi or hydronephrosis. No focal lesions. No perinephric collections. No evidence of ureteral calculi or dilatation. Urinary bladder is well-distended by urine. No evidence of wall thickening, calculi or gas. Bowel: Bowel is not well evaluated without oral and IV contrast. No definite wall thickening and noevidence of abnormal dilatation or pneumatosis. Appendix is normal. Mesentery and peritoneal cavity: Small volume abdominopelvic ascites, new since the prior CT. Diffuse mesenteric edema. No evidence of pneumoperitoneum. Lymph nodes: Several mildly enlarged para-aortic lymph nodes measuring up to 1.3 cm in short axis. Bilateral iliac chain lymphadenopathy with the largest measuring 1.5 cm in the right external iliac region. There are also prominent bilateral femoral lymph nodes with the largest measuring 1.4 cm on the left. Vascular structures:Aorta and pelvic arteries are normal in caliber. Mild to moderate degree of arterial calcifications. Abdominal wall: Diffuse subcutaneous edema and skin thickening. Pelvic Organs: Normal CT appearance. Bones: No fractures or dislocations. Degenerative disc disease at L4/L5. IMPRESSION: 1. New small volume abdominopelvic ascites and diffuse anasarca. 2. Moderate right and trace left pleural effusions, and partially imaged pericardial effusion. 3. Nonspecific retroperitoneal and pelvic lymphadenopathy, most likely reactive. Thank you for allowing me to participate in the care of this patient. WSN: [id number] Ordering Physician: Kelli Fink Dictated By: Kenyatta Carrillo MD Dictated Date/Time: 06/21/22 11:00 p Reviewed By: Kenyatta Carrillo MD Signed By: Kenyatta Carrillo MD Signed Date/Time: 06/21/22 11:00 pm Transcribed By: ALEXIS Transcribed Date/Time: 06/21/22 10:53 pm * Exam Date Time Procedure Performing Provider Status 06/21/22 9:38 PM US Doppler Ext Lower Venous Left Rolo Fonseca; Nicol (Verified) Notes: (US Doppler Ext Lower Venous Left) Reason For Exam: Pain in limb;Other: RESULT: US Doppler Ext Lower Venous Left US Doppler Ext Lower Venous Left Hx of Present Illness: Pt c o LUQ abdm pain, cough. Wound on left foot, not healing. Increased edema RLE; Reason: Other:; Pain in limb; Clinical Question(s): Thrombus; Order Comment: 06 21 2022 19:44:25 EDT rn claire NELSONF COMPARISON: None IMAGING TECHNIQUE: Ultrasound of the veins from the groin through the calf was performed using grayscale, color, and spectral Doppler ultrasound assessing for complete compressibility and normal flowcharacteristics. FINDINGS: Common femoral vein: Patent. No thrombosis. Femoral vein: Patent. No thrombosis. Popliteal vein: Patent. No thrombosis. Gastrocnemius veins: The visualized portions are patent without evidence of thrombosis. Peroneal veins: The visualized portions are patent without evidence of thrombosis. Posterior tibial veins: The visualized portions are patent without evidence of thrombosis. Contralateral common femoral vein: Patent. No thrombosis. OTHER FINDINGS: None. IMPRESSION: No evidence of deep venous thrombosis. I have personally reviewed the images and I agree with this report. WSN: [id number] Ordering Physician: Kelli Fink Dictated By: Svitlana Barraza DO Dictated Date/Time: 06/21/22 10:12 p Reviewed By: Kaveh Chambers MD Signed By: Kaveh Chambers MD Signed Date/Time: 06/21/22 10:17 pm Transcribed By: ALEXIS Transcribed Date/Time: 06/21/22 10:04 pm * Exam Date Time Procedure Performing Provider Status 06/21/22 7:51 PM Chest 2 Views Frontal and Lat Stephen Rm; Nicol (Verified) Notes: (Chest 2 Views Frontal and Lat) Reason For Exam: CHF RESULT: Chest 2 Views Frontal and Lat Chest 2 Views Frontal and Lat Hx of Present Illness: Pt c o LUQ abdm pain, cough. Wound on left foot, not healing. Increased edema RLE; Reason: CHF; Clinical Question(s): Pleural Effusion COMPARISON: None. FINDINGS: LINES AND TUBES: None. LUNGS AND PLEURA: Central vascular engorgement and hazy perihilar opacities. HEART, MEDIASTINUM AND EVERT: Prominent cardiac silhouette. BONES AND SOFT TISSUES: No acute abnormality. IMPRESSION: Pulmonary edema suspected. WSN: [id number] Ordering Physician: Kelli Fink Dictated By: Apollo Drew MD Dictated Date/Time: 06/21/22 8:00 pm Reviewed By: Apollo Drew MD Signed By: Apollo Drew MD Signed Date/Time: 06/21/22 8:00 pm Transcribed By: ALEXIS Transcribed Date/Time: 06/21/22 7:54 pm Vital Signs Most recent to oldest [Reference Range]: 1 2 3 4 Height 167.64 cm (06/23/22 8:42 AM) 167.64 cm (06/23/22 2:34 AM) 167.64 cm (06/22/22 9:05 PM) Weight 91 kg (06/23/22 10:36 AM) 91.8 kg (06/23/22 2:34 AM) 91 kg (06/22/22 1:58 PM) Oxygen Saturation [94-100 %] 94 % (06/23/22 8:42 AM) 96 % (06/23/22 2:34 AM) 97 % (06/22/22 9:05 PM) Pulse Rate [55-90 bpm] 84 bpm (06/23/22 9:54 AM) 84 bpm (06/23/22 8:42 AM) 78 bpm (06/23/22 2:34 AM) Body Mass Index [18.5-24.99 kg/m2] 32.67 kg/m2 *>HHI* (06/23/22 2:34 AM) Blood Pressure [90-138/55-84 mm Hg] 158/81mm Hg *H* (06/23/22 9:54 AM) 158/81mm Hg *H* (06/23/22 9:54 AM) 158/81mm Hg *H* (06/23/22 9:53 AM) Respiratory Rate [16-30 br/min] 18 br/min (06/23/22 8:42 AM) 20 br/min (06/23/22 6:43 AM) 18 br/min (06/23/22 2:52 AM) 16 br/min (06/23/22 2:52 AM) Temperature [96.8-100.4 DegF] 98.0 DegF (06/23/22 8:42 AM) 97.6 DegF (06/23/22 2:34 AM) 97.4 DegF (06/22/22 9:05 PM) Mode of Delivery (Oxygen) Room air (06/23/22 8:42 AM) Room air (06/23/22 2:34 AM) Room air (06/22/22 9:05 PM) Blood pressure sites Arm, right (06/23/22 8:42 AM) Arm, right (06/23/22 2:34 AM) Arm, right (06/22/22 9:05 PM) Temperature Route Oral (06/23/22 8:42 AM) Oral (06/23/22 2:34 AM) Oral (06/22/22 9:05 PM) Weight Obtained Via Bed scale (06/23/22 2:34 AM) Bed scale (06/22/22 2:00 AM) Social History Social History Type Response Smoking Status Never (less than 100 in lifetime) entered on: 08/22/21 Sex Admission evaluation note * Flora Baker DO: PERFORM, MODIFY, MODIFY, MODIFY, MODIFY, MODIFY, MODIFY, MODIFY, MODIFY, MODIFY,MODIFY, MODIFY, MODIFY, MODIFY, MODIFY, MODIFY, MODIFY, MODIFY, MODIFY Event Display: Admission Note Authored Date: [id number] Patient: ??SHEREEN TAYLOR ? Age:??31 Years?Sex:??Female?:??1990?? Chief Complaint/Reason for Consultation SOB History of Present Illness Shereen Taylor is a 31 year old female with PMH of??nonischemic cardiomyopathy, HFrEF EF 40-50%,diabetes, CKD stage IV, asthma, blindness of right eye, history of preeclampsia??who presented to ED on 06/21 with multiple complaints. ?? Patient reports lower abdominal pain for the past few days which radiates to bilateral lower back. She also reports left upper quadrant pain. She denies fevers or chills. She does report 2 week history of diarrhea. She reports issues with nausea and vomiting since being in the ED, but has intermittent symptoms at home due to gastroparesis. During the past few days, she has noted increased SOB with orthopnea/PND and increased lower extremity edema. She also reports a chronic dry cough.??She reports increased pain in her LLE > RLE due to her chronic wound which she self-manages at home. She denies any chest pain or palpitations. She also denies any history of tobacco, alcohol or drug use. She denies use of acetaminophen. She denies any new sexual partners. ?? In ED, vitals were BP 175-190/105-124, HR 75-98, RR 16-24, T afebrile, and O2 on RA. Labs were without leukocytosis WBC 6.6, normocytic anemia Hgb??8.6 MCV 89.6, Plt 265, Na 136, K hemolyzed, Cl 106, HCO3 14, BUN/Cr 55/3.4, Glucose 257, calcium 8.5. Alkaline phosphatase 167, lipase 79, AST 128, ALT 267, T bilirubin 0.7, lactate 1.5. BNP 34996. COVID negative. negative. ?? EKG with NSR, RBBB. CXR read as suspected pulmonary edema. US Doppler Ext Lower Venous Left with no evidence of DVT. CT Abdomen/Pelvis W/o Contrast showing new small volume abdominopelvic ascites and diffuse anasarca, moderate right and trace left pleural effusions, partially imaged pericardial effusion, nonspecific retroperitoneal and pelvic lymphadenopathy most likely reactive. ?? Echo Feb 2022: LVEF 40-50%, moderate to severe TR, trace to small pericardial effusion. In ED, patient received lasix 30mg IV x1, dilaudid 0.5mg x2, and zofran 4mg x2. Review of Systems A full review of systems was completed and is otherwise negative except as mentioned in history of present illness. Objective Vital Signs?? Temperature: 98 DegF (06/21/22 23:21:00) Temperature Route: Oral (06/21/22 23:21:00) Pulse Rate: 75 bpm (06/21/22 23:21:00) Pulse Rate: 85 bpm (06/21/22 23:21:00) Respiratory Rate: 24 br/min (06/22/22 00:14:00) Systolic Blood Pressure:??176 mm Hg??High (06/21/22 23:21:00) Systolic Blood Pressure:??176 mm Hg??High (06/21/22 23:21:00) Diastolic Blood Pressure:??111 mm Hg??High (06/21/22 23:21:00) Diastolic Blood Pressure:??111 mm Hg??High (06/21/22 23:21:00) Blood pressure sites: Arm, right (06/21/22 23:21:00) Mean Arterial Pressure: 133 mm Hg (06/21/22 23:21:00) Pulse Pressure: 65 mm Hg (06/21/22 23:21:00) Oxygen Saturation: 96 % (06/21/22 23:21:00) Oxygen Saturation: 100 % (06/21/22 23:21:00) Mode of Delivery (Oxygen): Room air (06/21/22 23:21:00) Mode of Delivery (Oxygen): Room air (06/21/22 23:21:00) ?? Physical Exam Constitutional: Alert, in no acute distress. Head EENT: Blind right eye.??Moist mucous membranes.?? Neck: Supple. Elevated JVD. Cardiovascular: Regular rate and rhythm. Respiratory: Clear to auscultation. No wheezing or crackles. No use of accessory muscles. Gastrointestinal: Abdomen soft,??mild tender to palpation diffusely,??non- distended. Normal bowel sounds. Extremities:??L > R 1+??lower extremity pitting??edema. Neurologic: AAOx3, Speech normal. No focal neurological deficits. Skin: No rash. Psychiatric: Normal mood and affect. Assessment/Plan Shereen Taylor is a 31 year old female with PMH of??nonischemic cardiomyopathy, HFrEF EF 40-50%,diabetes, CKD stage IV, asthma, blindness of right eye, history of preeclampsia??who presented to ED on 06/21 with multiple complaints. Patient reporting abdominal pain and diarrhea as well as SOB with increased lower extremity edema.??She was found to be in volume overload with elevated LFTs, and was admitted for further management of acute on chronic HFrEF exacerbation. ?? Acute on chronic HFrEF 40-50% Moderate to severe TR Hypertensive urgency CKD stage IV Patient reports worsening SOB with orthopnea, PND, and worsening??lower extremity edema over past few days Unclear trigger, in past she has had issues with taking BP meds due to N/V in setting of gastroparesis She reports her abdominal pain symptoms have continued, but N/V under control until presentation toED Denies chest pain, palpitations. She is adherent to meds (takes torsemide 20mg BID) Evidence of overload on exam, with elevated BNP as well as CXR with pulmonary edema This is likely triggered by her significantly elevated blood pressure ?? Plan: -Will diurese with lasix 40mg IV BID as per volume status and renal function -Monitor I+O, daily weights -Continue ASA -Continue carvedilol, hydralazine and imdur -Consult Nephrology for HTN management in setting of CKD 4 -Trend troponin -phototypesetting equipment monitor ?? Elevated LFTs Abdominal pain Diarrhea 06/21: AST 128, ALT 267, T bili 0.7 Patient reports having had 2 weeks of diarrhea, she reports lower abdominal and LUQ pain for past few days She denies any acetaminophen, alcohol, drug, or new sexual partners Could be in setting of congestive hepatopathy vs viral vs med induced, less likely obstructive given normal bili (CT with no duct dilatation) ?? Plan: -Obtain INR -Obtain viral hepatitis serologies -Trend LFTs -If continuing to uptrend, obtain RUQ US -Hold statin given LFTs >3x ULN ?? Chronic LLE wound Patient without fevers or leukocytosis Appears to be some drainage ?? Plan: -Obtain XR of L foot -Consult wound care -Can hold abx given no systemic signs ?? Chronic stable medical conditions Diabetes: patient reports she is not taking insulin at home due to blood sugars within normal range. POC TID and QHS. SSI while inpatient. GERD: continue PPI ?? Quality Measures Diet: Cardiac DVT Prophylaxis: Heparin Code: FULL ?? Patient's care and plan discussed with attending, Dr. Bess. ?? Flora Baker DO Internal Medicine PGY2 [id number]?? Histories Allergies Allergies ?(Active and Proposed Allergies [...] Per chart: pt tolerated vanco on 05/18/21 ?? Past Medical History/Problem List Active Problems??(15) Asthma Blindness of right eye Cardiac disease during , antepartum Care Coordination [facility] [facility], [place], [place] CKD (chronic kidney [...] of right great toe Diabetic foot ulcer ?? Social History Alcohol Details:??Use: Never. Employment/School Details:??Status: Disabled. Sexual Details:??Sexually involved in last 6 months: Yes. ??Gender identity: Identifies as female. ??Preferred pronoun: She/her. Substance Abuse Details:??Use: Never. Tobacco Details:??Use: Never (less than 100 in lifetime). ?? Family History Mother (): CAD - Coronary artery disease; Diabetes mellitus type II; Hyperlipidemia; Hypertension; Myocardial infarction; Stroke Father: Asthma; Diabetes mellitus; Hyperlipidemia; Myocardial infarction Sister: Diabetes mellitus Brother: Diabetes mellitus Medications Home Medications Albuterol (Albuterol (Eqv-ProAir HFA) 90 mcg/inh inhalation aerosol)?2?puff(s)?Inhalation?Every 4 hours Aspirin (Aspirin Low Dose 81 mg oral delayed release tablet)?1?tab(s)?81?Milligram?By Mouth?Daily Carvedilol (Coreg 25 mg oral tablet)?25?Milligram?1?tablet?By Mouth?2 times a day Durable Medical Equipment ([place], 31 G x 5 mm BD Ultra Fine III)?See Instructions?for 30?Days?use as directed for Type 2 Diabetes Mellitus Fluticasone Nasal (Flonase 50 mcg/inh nasal spray)?1?spray(s)?Nares, Both?2 times a day hydrALAZINE (hydrALAZINE 25 mg oral tablet)?25?Milligram?1?tablet?By Mouth?3 times a day Insulin Aspart (NovoLOG FlexPen 100 units/mL injectable solution)?11-12 UNITS?Subcutaneous Injection?3 times a day before meals?(NOT TAKING & HASN'T IN MONTHS) Insulin Detemir (Levemir FlexTouch 100 units/mL subcutaneous solution)?8?unit(s)?Subcutaneous Injection?Daily in AM Isosorbide Mononitrate (isosorbide mononitrate 30 mg oral tablet, extended release)?TAKE 1 TABLET BY MOUTH EVERY DAY Pantoprazole (pantoprazole 40 mg oral delayed release tablet)?1?tab(s)?40?Milligram?By Mouth?Daily Rosuvastatin (Crestor 5 mg oral tablet)?1?tab(s)?5?Milligram?By Mouth?Daily Scopolamine (scopolamine 1 mg/72 hr transdermal film, extended release)?1?Film?Topically?Every 72 hours sodium bicarbonate (sodium bicarbonate 650 mg oral tablet)?TAKE 1 TABLET BY MOUTH TWICE A DAY FOR 14 DAYS torsemide (torsemide 20 mg oral tablet)?1?tab(s)?20?Milligram?By Mouth?2 times a day Results Recent Labs BLOOD COUNT & DIFF WBC 6.6 k/mm3 ()?? 06/21/2022 17:44 RBC 3.17 m/mm3 (Low)?? 06/21/2022 17:44 Hgb 8.6 Gm/dL (Low)?? 06/21/2022 17:44 Hct 28.4 % (Low)?? 06/21/2022 17:44 MCV 89.6 femtoliters ()?? 06/21/2022 17:44 MCH 27.1 pg ()?? 06/21/2022 17:44 MCHC 30.3 g/dL (Low)?? 06/21/2022 17:44 Platelet Count 265 k/mm3 ()?? 06/21/2022 17:44 RDW-SD 54.8 femtoliters (High)?? 06/21/2022 17:44 MPV 12.3 femtoliters ()?? 06/21/2022 17:44 Nucleated RBC (Automated) 0.5 #/100 WBC'S ()?? 06/21/2022 17:44 Abs. NRBC 0.0 k/mm3 ()?? 06/21/2022 17:44 Abs. Neut 5.3 k/mm3 ()?? 06/21/2022 17:44 Abs. Lymph 0.6 k/mm3 (Low)?? 06/21/2022 17:44 Abs. [place] 0.5 k/mm3 ()?? 06/21/2022 17:44 Abs. Eo 0.1 k/mm3 ()?? 06/21/2022 17:44 Abs. Baso 0.0 k/mm3 ()?? 06/21/2022 17:44 Neut % 81.2 % (High)?? 06/21/2022 17:44 Lymph % 8.4 % (Low)?? 06/21/2022 17:44 [place] % 7.6 % ()?? 06/21/2022 17:44 Eos % 1.4 % ()?? 06/21/2022 17:44 Baso % 0.6 % ()?? 06/21/2022 17:44 Imm Gran 0.8 % ()?? 06/21/2022 17:44 Abs. Imm Gran 0.1 k/mm3 ()?? 06/21/2022 17:44 ?? CARDIAC Nt-Probnp 88875 pg/mL (High)?? 06/21/2022 17:44 ?? CHEM GENERAL Sodium 136 mmol/L ()?? 06/21/2022 17:44 Potassium HEMOLYZED mmol/L ()?? 06/21/2022 17:44 Chloride 106 mmol/L ()?? 06/21/2022 17:44 Bicarbonate Level 14 mmol/L (Low)?? 06/21/2022 17:44 Anion Gap 16 ()?? 06/21/2022 17:44 Glucose Level 257 mg/dL (High)?? 06/21/2022 17:44 BUN 55 mg/dL (High)?? 06/21/2022 17:44 Creatinine-Blood 3.4 mg/dL (High)?? 06/21/2022 17:44 Estimated GFR Creatinine 18 ML/MIN/1.73 M2 ()?? 06/21/2022 17:44 Calcium 8.5 mg/dL (Low)?? 06/21/2022 17:44 Protein, Total 6.8 Gm/dL ()?? 06/21/2022 17:44 Albumin 3.5 Gm/dL ()?? 06/21/2022 17:44 AG Ratio 1.1 ()?? 06/21/2022 17:44 Alkaline Phosphatase 167 units/L (High)?? 06/21/2022 17:44 Lipase 79 units/L (High)?? 06/21/2022 17:44 AST (SGOT) 128 units/L (High)?? 06/21/2022 17:44 ALT (SGPT) 267 units/L (High)?? 06/21/2022 17:44 Bilirubin, Total 0.7 mg/dL ()?? 06/21/2022 17:44 Lactate 1.5 mmol/L ()?? 06/21/2022 17:44 ?? ENDOCRINE/TUMOR MARKER Serum Qual NEGATIVE mIU/mL ()?? 06/21/2022 17:44 ?? VIROLOGY COVID-19 by RT-PCR NEGATIVE ()?? 06/21/2022 18:46 ? * Williams Bess MD: PERFORM Event Display: Admission Note Authored Date: [id number] ??Attending Attestation:?? I have seen and evaluated this patient. ?? I have discussed the case and its management with the resident and agree with the findings and adore documented in the resident's note. ??I ??will continue to provide care to this patient till 7 AMof the admitting date. ? 31-year-old female with a past medical history of nonischemic cardiomyopathy, diabetes, CKD stage IV, asthma, preeclampsia who did come with a complaint of multiple physical symptoms. ??Overall patient is a poor historian. ??Look like she is not fully compliant with dietary/medical advice. ??She came with a complaint of worsening of leg swelling and some lower abdominal pain. ??No fever, chills. ??Concern of acute on chronic systolic congestive heart failure in the setting of moderate to severeTR because of hypertensive urgency. ??We will follow-up with nephrology consult for the optimization of her medications for blood pressure. ??We will optimize the diuretic treatment as per renal funct ion and volume status. ??Patient have slightly high LFTs that could be due to the congestion of theliver. ??If there could be upward trend of the LFTs then we will get a ultrasound of right upper quadrant to rule out choledocholithiasis. ??On a CT of the abdomen patient have a normal bile ducts with no stone. ??Patient has a wound underneath of the plantar aspect of the left foot with some drainage. ??We will get a wound culture. ??X-ray of the foot is pending. ??Blood pressure is very high. ??We will give labetalol as needed. * Shahriar CARLSON, Williams: PERFORM Event Display: Admission Note Authored Date: She is not taking Lantus. ??We will follow the??lipid panel and HbA1c level. ??Will continue insulin lispro sliding scale as per POC. EKG study * Event Display: ECG 12-Lead Authored Date: Please click on pdf link to open report * Event Display: ECG 12-Lead Authored Date: Ventricular Rate: 91 BPM Atrial Rate: 91 BPM P-R Interval: 154 ms QRS Duration: 144 ms Q-T Interval: 418 ms QTC Calculation(Bazett): 514 ms P [place]: 71 degrees R [place]: -8 degrees T [place]: 114 degrees Poor data quality, interpretation may be adversely affected Normal sinus rhythm Possible Left atrial enlargement Right bundle branch block Abnormal ECG When compared with ECG of 13-APR-2022 14:47, Nonspecific T wave abnormality, improved in Inferior leads Confirmed by KILO SAN ([id number]) on 06/22/2022 8:46:09 PM [place]: KILO SAN [facility] Progress note * Renetta Correia RN: PERFORM, SIGN, VERIFY Event Display: Progress Note Hospital Authored Date: [id number] Patient: SHEREEN TAYLOR Age: 31 years Sex: Female : 1990 Associated Diagnoses: None Author: Renetta Correia RN Findings Narrative/Incidental (Patient drwosey but alert and oriented, denies any chest pain, SOB or dizziness at this time. Patient does have c/o continuous abdominal and left leg pain, current pain regimen giving desired effect. Lungs are clear, patient has spontanous cough when awakening, declines any interventions. Mepilex in place on bottom of left foot, CDI. SR on tele. Patient resting in bed, awaiti ng her ride for discharge, call moore within reach, safety maintained. ) * Shawnee Sanchez MD: PERFORM, SIGN, VERIFY Event Display: Progress Note Hospital Authored Date: [id number] Patient: SHEREEN TAYLOR Age: 31 years Sex: Female : 1990 Associated Diagnoses: None Author: Shawnee Sanchez MD Overnight Events & Current Issues seen and examined Review of Systems Review of Systems Constitutional: no complaints. Physical Examination Vitals Vitals : VITAL SIGNS SECTION 06/23/2022 8:42 EDT Early Warning Score 5.00 06/23/2022 8:42 EDT Temperature 98.0 DegF Temperature Route Oral Pulse Rate 84 bpm Respiratory Rate 18 br/min Systolic Blood Pressure 158 mm Hg H Diastolic Blood Pressure 81 mm Hg Blood pressure sites Arm, right Mean Arterial Pressure 107 mm Hg Pulse Pressure 77 mm Hg Oxygen Saturation 94 % Mode of Delivery (Oxygen) Room air . General Appearance No apparent distress. Respiratory Lungs: CTA. Cardiac Rhythms: RRR. Abdomen/GI Soft. Non-tender. Extremities Normal. 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, nodular sclerosis, severe interstitial fibrosis LVEF 40-50% BP better but not optimal REC can substitute amlodipine with nifedipine if BP high resume torsemide 20 mg orally when discharged c/w sodium bicarbonate follow kidney function and electrolytes o/p renal f/u * Elzbieta BETH, Helen: PERFORM, SIGN, VERIFY Event Display: Progress Note Hospital Authored Date: Patient: SHEREEN TAYLOR Age: 31 years Sex: Female : 1990 Associated Diagnoses: None Author: Helen Ruff RN Findings Problem Related to Alteration in Cardiac Function (new) : Alteration in Cardiac Function/new 06/23/2022 2:00 EDT Alteration in Cardiac Status Related to [...] strategies to reduce risk factors, Pt will understand fluid restriction for Heart Failure Cardiac Interventions Implemented Assess/monitor cardiac status, Assess/monitor neuro status, Assess/monitor respiratory status, If no bowel movement in 3 days activate bowel regime, Monitor & document daily weight, Monitor anticoagulation values, Monitor ECG w/administration of antiarrhythmics(CO 13.420) BH Goals/Interventions, Cardiac Yes Cardiac, Problem Start 06/22/2022 3:31 Reviewed Plan with, Cardiac Status Patient Patient Progression, Cardiac Status Patient progressing according to plan . Nursing Data Cardiac Data. 06/22/2022 9:00 EDT Heart Rhythm Regular Pacemaker No Cardiac Rhythm Normal sinus rhythm Capillary Refill < 3 seconds phototypesetting equipment monitor Yes Cardiovascular WNL except 06/22/2022 6:36 EDT Hgb 7.8 Gm/dL L Hct 26.3 % L 06/22/2022 2:55 EDT Cardiovascular Symptoms None Nail Bed Color, Fingers [place] Nail Bed Color, Toes [place] Skin Temperature Upper Extremities Warm Skin Temperature Lower Extremities Warm Heart Sounds S1, S2 Heart Rhythm Regular Pacemaker No Cardiac Rhythm Normal sinus rhythm Capillary Refill < 3 seconds Dorsalis Pedis Pulse, Left Weak Dorsalis Pedis Pulse, Right Weak Edema Dependent Ankle, left 1+ trace Ankle, right 1+ trace phototypesetting equipment monitor Yes Cardiovascular WNL except . Vital Signs : VITAL SIGNS SECTION 06/23/2022 2:34 EDT Temperature 97.6 DegF Temperature Route Oral Pulse Rate 78 bpm Respiratory Rate 18 br/min Systolic Blood Pressure 152 mm Hg H Diastolic Blood Pressure 89 mm Hg H Blood pressure sites Arm, right Mean Arterial Pressure 110 mm Hg Pulse Pressure 63 mm Hg Oxygen Saturation 96 % Mode of Delivery (Oxygen) Room air 06/23/2022 2:29 EDT Early Warning Score 5.00 06/22/2022 21:51 EDT Early Warning Score 2.00 06/22/2022 21:07 EDT Early Warning Score 2.00 06/22/2022 21:05 EDT Temperature 97.4 DegF Temperature Route Oral Pulse Rate 86 bpm Respiratory Rate 18 br/min Systolic Blood Pressure 147 mm Hg H Diastolic Blood Pressure 86 mm Hg H Blood pressure sites Arm, right Mean Arterial Pressure 106 mm Hg Pulse Pressure 61 mm Hg Oxygen Saturation 97 % Mode of Delivery (Oxygen) Room air . Evaluation Pt alert and oriented x3, VSS, tele NSR, BP improved. LSC, BS+, voiding, 1+ lower ext edema, pp+. Pt with c/o 9/10 left lower leg pain and moore pain. Dilaudid IVP given with intended results.This am pt only c/o left leg pain 9/10 medicated with Dilaudid IVP per orders. Will cont to monitor and report any changes. . Note * Renetta Correia RN: PERFORM Event Display: Discharge/Transfer Note Hospital Authored Date: [id number] Nursing Discharge Note Entered On: 06/23/2022 14:30 EDT Performed On: 06/23/2022 14:30 EDT by Renetta Correia RN Nursing Discharge Note 2 Discharge Time : 06/23/2022 12:15 EDT Discharge Level of Care at Discharge : Homehealth/VNA Patient Left Unit Via : Chair Van Patient Accompanied Off Unit with : Ambulance/Chair Van Personnel Handover Given to Transport Personnel : Yes DC Instructions Provided & Signed by Pt : Yes Patient Understands D/C Instructions : Yes Patient Instructions Discharge Signed : Yes Did Pt have Specialty Bed or Wound Vac : No Renetta Correia RN 06/23/2022 14:30 EDT * Cynthia Willis MD: MODIFY, MODIFY, PERFORM Event Display: Discharge/Transfer Note Hospital Authored Date: Patient: ??SHEREEN TAYLOR ? Age:??31 Years?Sex:??Female?:??1990?? Patient Information Discharge Location: Primary Care Physician: Abdon Beard MD Admit Date/Time: 06/21/22 23:49 Discharge Disposition Discharge Disposition: Home: No Services Discharge Diagnosis CHF (congestive heart failure) (I50.9) History of anemia due to chronic kidney disease (N18.9) Asthma Blindness of right eye CKD stage 4 due to type 2 diabetes mellitus Diabetes mellitus type 2 Heart failure with preserved ejection fraction, NYHA class I Hypertension ?? _ Discharge Medications Albuterol (Albuterol (Eqv-ProAir [...] 12 hours?for 7?Days Durable Medical Equipment ([place], 31 G x 5 mm BD Ultra [...] oral tablet)?1?tab(s)?20?Milligram?By Mouth?2 times a day ? Vaccinations and Immunoprophylaxis influenza virus vaccine, inactivated: 0.5 Unknown (09/30/16 08:00:00) influenza virus vaccine, inactivated: 0.5 mL (12/06/11 08:21:00) Measles/Mumps/Rubella Virus Vaccine: 0.5 mL (07/15/95 14:08:00) Measles/Mumps/Rubella Virus Vaccine: 0.5 mL (03/25/89 14:07:00) Poliovirus Vaccine, Inactivated: 0.5 mL (08/08/92 14:06:00) Poliovirus Vaccine, Inactivated: 0.5 mL (01/24/92 14:06:00) Poliovirus Vaccine, Inactivated: 0.5 mL (07/05/89 14:05:00) Poliovirus Vaccine, Inactivated: 0.5 mL (88 14:05:00) Poliovirus Vaccine, Inactivated: 0.5 mL (88 14:04:00) SARS-CoV-2 (COVID-19) mRNA-1273 vaccine: 0.5 Unknown (07/16/20 08:00:00) SARS-CoV-2 (COVID-19) mRNA-1273 vaccine: 0.5 Unknown (06/18/20 08:00:00) tetanus/diphtheria/pertussis, acel(Tdap): 0.5 mL (06/27/12 18:00:00) tetanus/diphtheria/pertussis, acel(Tdap): 0 Unknown (06/24/12 08:00:00) tetanus-diphtheria toxoids (Td): 0.5 mL (03/13/02 13:54:00) Diphth/Pertussis, Whl Cell/Tet(oldterm): 0.5 mL (08/08/92 14:04:00) Diphth/Pertussis, Whl Cell/Tet(oldterm): 0.5 mL (01/24/92 14:01:00) Diphth/Pertussis, Whl Cell/Tet(oldterm): 0.5 mL (07/05/89 14:00:00) Diphth/Pertussis, Whl Cell/Tet(oldterm): 0.5 mL (88 14:00:00) Diphth/Pertussis, Whl Cell/Tet(oldterm): 0.5 mL (88 13:56:00) Hepatitis B Vaccine (old term): 0.5 mL (10/21/02 13:54:00) Hepatitis B Vaccine (old term): 0.5 mL (04/18/02 13:53:00) Hepatitis B Vaccine (old term): 0.5 mL (03/13/02 13:53:00) ? Durable Medical Equipment On Admit VNA/Hospice/Home Care: [facility] [address] [place] [id number] (06/22/22) On Admit Medical Equip [facility]: [facility] [place] [address] [place] [phone] (06/22/22) Discharge recommendations: Home (04/12/22) Discharge Medical Equipment Companies: [employer] [facility] (03/16/22) Name [facility] Agency #1[facility] (03/16/22) Agency Patrol Police Sergeant #1: intake (03/07/22) Service Categories #1: Oxygen Therapy (03/16/22) Service Comments #1: Pulmonary Nurse arranging oxygen with [facility]; if any issues or concern with equipment please call them directly. (03/07/22) Patient Going Home on Oxygen: Yes (03/07/22) Portable unit required: Yes (03/07/22) Oxygen Device used at Home: Nasal cannula (03/07/22) Ambulatory devices needed: None (06/22/22) ? Medications Started amlodipine iron colace bicarb reglan prn Doses Changed hydralazine to 50 mg tid Allergies Allergies ?(Active and Proposed Allergies Only) [...] chart: pt tolerated vanco on 05/18/21 ? Stroke Onset Details Service Categories #1: Oxygen Therapy ?? PCP Follow-Up/Heads-Up LFT abnormalities workup BP optimization Hospital Course Patient is admitted with multiple system complaints, but mainly headache, abdominal pain and N/V, she is diagnosed with acute exacerbation of gastroparesis and responded well to antiemetics and prokinetics with resolution of symptoms. Her BP is also severely elevated that is better controlled with e scalation of regimen, following inpatient evaluation she does not have evidence of pulmonary edema,although she is indeed volume overloaded peripherally due to CHF and CKD but this is stable. Her LFT was abnormal but is spontaneously improving, viral hepatitis negative, additional serology workup pending but may follow outpatient. She also has a small L plantar foot diabetic ulcer with evidence of minor soft tissue infection, DX negative for osteo will provide a brief course of PO abx. Her anemia is related to CKD without evidence of acute GI loss will start iron with outpatient consideration of VIPUL. 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 Objective Assessment and Plan ?? Hypertensive urgency, improved -BP better controlled with systolic around 150-160 mmHg -continue Coreg, start amlodipine, increase hydralazine, with outpatient monitor and titration withy eventual target of 120/80 mmHg ?? HFrEF not in acute decompensation, NYHA Class III, ACC stage C -patient has no evidence of pulmonary edema on bedside ultrasound nor is with respiratory symptoms,she is extravascular overloaded, cotinue torsemide at home dose ?? CKD4 stable?? NAGMA 2/2 CKD status -nephrology consulted appreciated, continue PO bicarb ?? Acute??exacerbation of diabetic gastroparesis, resolved -this is a known issue causing multiple admissions and GI evaluation in the past, CT A/P no evidence of obstruction, THC screen negative, GI symptoms resolved with Relgan and Zofran and able to tolerate regular diet fairly, will discharge with brief course of Reglan, diet modification recommendations provided ?? 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 Anemia of kidney disease -ferritin and Hb not at goal, start iron and bowel regimen for discharge, once her BP better controlled may consider VIPUL if deemed appropriate by nephrology outpatient ?? DM2, diet controlled ?? Asthma not in exacerbation -nebs prn ?? L foot diabetic foot ulcer with mild infection -DX negative for osteo, will provide 7 days of doxycycline, superficial swab likely polymicrobial and unreliable ?? Discussed with RN/CM. ?? Measurements?? Height: 167.64 cm (06/23/22) Weight: 91.8 kg (06/23/22) Body Mass Index:??32.67 kg/m2??Critical (06/23/22) ? Vital Signs?? Temperature: 98 DegF (06/23/22 08:42:00) Temperature Route: Oral (06/23/22 08:42:00) Pulse Rate: 84 bpm (06/23/22 08:42:00) Respiratory Rate: 18 br/min (06/23/22 08:42:00) Systolic Blood Pressure:??158 mm Hg??High (06/23/22 08:42:00) Diastolic Blood Pressure: 81 mm Hg (06/23/22 08:42:00) Blood pressure sites: Arm, right (06/23/22 08:42:00) Mean Arterial Pressure: 107 mm Hg (06/23/22 08:42:00) Pulse Pressure: 77 mm Hg (06/23/22 08:42:00) Oxygen Saturation: 94 % (06/23/22 08:42:00) Mode of Delivery (Oxygen): Room air (06/23/22 08:42:00) Early Warning Score: 5 (06/23/22 09:01:41) ? Pain Scores Pain relief acceptable: Yes (02:52) ? Ventilator Settings?? No qualifying data available. ? Intake/Output? 06/21 23:49 06/23 07:00 06/22 07:00 06/21 07:00 06/20 07:00 ?? 06/23 09:58 06/23 09:58 06/23 06:59 06/22 06:59 06/21 06:59 Intake ?0 ?0 ?0 ?0 ?0 Output ?1 ?0 ?1 ?0 ?0 Net Total ? -1 ?0 ? -1 ?0 ?0 ? Precautions No Precautions documented.? Zain Coma Scale [place] Coma Score: 15 (06/22/22 02:55:00) Motor Response-Adult: Obeys commands (06/22/22 02:55:00) Response Eye Opening: Spontaneously (06/22/22 02:55:00) Verbal Response-Adult: Oriented and converses (06/22/22 02:55:00) ?? Basic ADLs Activity Assistance: One person assistance, Standby assist (06/22/22) Ambulatory devices needed: None (06/22/22) Feeding Assistance: Independent (06/22/22) Hygiene: Assist, Pao care (06/22/22) ? Mobility & Ambulation Level Mobility & Ambulation Level Activity Assistance: One person assistance, Standby assist (06/22/22) Activity Status ADL: Bedside commode, Up with assistance (06/22/22) Ambulatory devices needed: None (06/22/22) ?? Therapeutic Activity Therapeutic Activities/Mobility/Balance?? No qualifying data available. ?? . Physical Exam Constitutional: Alert, in no acute distress. Head EENT: Extraocular muscle movement intact.??Moist mucous membranes.?? Respiratory: Clear to auscultation. No wheezing or crackles. No use of accessory muscles. Cardiovascular: S1S2 regular. No murmurs, rubs or gallops. Gastrointestinal: Abdomen soft, non-tender, non-distended. Normal bowel sounds Extremities: L>R1+ pitting edema. No cyanosis or clubbing. L plantar foot diabetic ulcer, minimal discharge, no tenderness of fluctuation. L foot possibly Charcot foot changes. Neurologic: AAOx3, Speech normal. No focal neurological deficits. R eye blind. Skin: No rash. Psychiatric: Normal mood and affect Consultants nephrology Pending Results MUNA Screen ordered on 06/23/2022 Add On Lab Order ordered on 06/22/2022 Basic Metabolic Panel ordered on 06/21/2022 High??Sensitivity??Troponin T ordered on 06/21/2022 High??Sensitivity??Troponin T ordered on 06/22/2022 Smooth Muscle Ab Screen ordered on 06/23/2022 Wound Deep Culture w/ Gram Smear ordered on 06/22/2022 Patient Education Titles Doxycycline Oral Tablet?? Gastroparesis?? Follow-Up Appointments Added Follow Up ?Time Frame ?Comments Chirag CARLSON, Abdon?2 to 3 weeks Patient Instructions You are admitted for flare up of diabetic gastroparesis, this is caused by nerve damaged leading toflaccid stomach with nausea and vomiting; Please avoid food that is??fatty, acidic, spicy, and roughage-based, and minimize nondigestible fiber intake such as fresh??fruits and vegetables, take Reglan as needed to help with nausea and vomiting before meals; Please do NOT take this medication consecutively for more than 12 weeks due to potential neurological complications; ?? Your blood pressure is better controlled and new medications are prescribed (amlodipine 10 mg daily, hydralazine increased to 50 mg three times??a day), please monitor your blood pressure daily and keep a diary for outpatient provider to review and adjust, with long-term goal of 120/80 mmHg or below; ?? A brief course of antibiotics (doxycycline) will be prescribed for minor left foot infection, please ensure adequate water intake as this medication may irritate your stomach; ?? You are anemic (low blood cell count) related to kidney disease, please start iron tablet, please ensure taking Colace or laxatives to avoid constipation which is common when taking iron tablets; ?? Your blood work also showed mild liver function abnormalities, but it is improving, viral hepatitistests are negative, additional tests are in progress and please follow up with primary care provider within 2-3 weeks regarding the results, and to manage other medication issues; Follow up with primary energy trader as scheduled; ?? Return to nearest emergency room or call 911 if you experience fever T>100.4F, chill, chest painlast longer than 10 minutes, shortness of breath, persistent nausea/vomiting, unable to tolerate diet, worsening pain, discharge or redness of left foot wound, skin or eye ball yellowish discoloration (jaundice) or other severe and/or persistent symptoms. Post Discharge Care Activity: Activity as tolerated Code Status: ?? Full Resuscitation Condition: Stable Prognosis: Fair Results Discharge Labs BLOOD COUNT & DIFF WBC 3.8 k/mm3 (Low)?? 06/23/2022 01:09 RBC 2.99 m/mm3 (Low)?? 06/23/2022 01:09 Hgb 7.8 Gm/dL (Low)?? 06/23/2022 01:09 Hct 26.3 % (Low)?? 06/23/2022 01:09 MCV 88.0 femtoliters ()?? 06/23/2022 01:09 MCH 26.1 pg (Low)?? 06/23/2022 01:09 MCHC 29.7 g/dL (Low)?? 06/23/2022 01:09 Platelet Count 189 k/mm3 ()?? 06/23/2022 01:09 RDW-SD 55.0 femtoliters (High)?? 06/23/2022 01:09 MPV 12.5 femtoliters (High)?? 06/23/2022 01:09 Nucleated RBC (Automated) 1.1 #/100 WBC'S ()?? 06/23/2022 01:09 Abs. NRBC 0.0 k/mm3 ()?? 06/23/2022 01:09 Abs. Neut 5.3 k/mm3 ()?? 06/21/2022 17:44 Abs. Lymph 0.6 k/mm3 (Low)?? 06/21/2022 17:44 Abs. Marathon 0.5 k/mm3 ()?? 06/21/2022 17:44 Abs. Eo 0.1 k/mm3 ()?? 06/21/2022 17:44 Abs. Baso 0.0 k/mm3 ()?? 06/21/2022 17:44 Neut % 81.2 % (High)?? 06/21/2022 17:44 Lymph % 8.4 % (Low)?? 06/21/2022 17:44 Marathon % 7.6 % ()?? 06/21/2022 17:44 Eos % 1.4 % ()?? 06/21/2022 17:44 Baso % 0.6 % ()?? 06/21/2022 17:44 Imm Gran 0.8 % ()?? 06/21/2022 17:44 Abs. Imm Gran 0.1 k/mm3 ()?? 06/21/2022 17:44 ?? CARDIAC Nt-Probnp 80756 pg/mL (High)?? 06/21/2022 17:44 High Sensitivity Troponin (HSTnT) 93 ng/L (Critical)?? 06/22/2022 06:36 ?? CHEM GENERAL Sodium 137 mmol/L ()?? 06/23/2022 01:09 Potassium 4.0 mmol/L ()?? 06/23/2022 01:09 Chloride 108 mmol/L (High)?? 06/23/2022 01:09 Bicarbonate Level 17 mmol/L (Low)?? 06/23/2022 01:09 Anion Gap 12 ()?? 06/23/2022 01:09 Glucose Level 95 mg/dL ()?? 06/23/2022 01:09 Glucose, POC 82 mg/dL ()?? 06/23/2022 08:41 Hemoglobin A1C (Monitoring) 6.4 % (High)?? 06/21/2022 17:44 BUN 49 mg/dL (High)?? 06/23/2022 01:09 Creatinine-Blood 3.5 mg/dL (High)?? 06/23/2022 01:09 Estimated GFR Creatinine 17 ML/MIN/1.73 M2 ()?? 06/23/2022 01:09 Calcium 8.0 mg/dL (Low)?? 06/23/2022 01:09 Phosphorus 6.1 mg/dL (High)?? 06/23/2022 01:09 Protein, Total 5.6 Gm/dL (Low)?? 06/23/2022 01:09 Albumin 2.9 Gm/dL (Low)?? 06/23/2022 01:09 AG Ratio 1.1 ()?? 06/23/2022 01:09 Alkaline Phosphatase 120 units/L (High)?? 06/23/2022 01:09 Lipase 79 units/L (High)?? 06/21/2022 17:44 AST (SGOT) 105 units/L (High)?? 06/23/2022 01:09 ALT (SGPT) 255 units/L (High)?? 06/23/2022 01:09 Bilirubin, Total 0.6 mg/dL ()?? 06/23/2022 01:09 Lactate 1.5 mmol/L ()?? 06/21/2022 17:44 ?? COAG INR 1.2 (High)?? 06/23/2022 01:09 Protime (PT) 12.8 seconds (High)?? 06/23/2022 01:09 ?? ENDOCRINE/TUMOR MARKER Serum Qual NEGATIVE mIU/mL ()?? 06/21/2022 17:44 ? IMMUNOLOGY GENERAL IgG 1291 mg/dL ()?? 06/23/2022 01:09 ? LIPID STUDIES Cholesterol 128 mg/dL ()?? 06/21/2022 17:44 Triglycerides 84 mg/dL ()?? 06/21/2022 17:44 HDL Cholesterol 42 mg/dL ()?? 06/21/2022 17:44 LDL Cholesterol 69 mg/dL ()?? 06/21/2022 17:44 Non HDL Cholesterol 86 mg/dL ()?? 06/21/2022 17:44 ? SEROLOGY INF DISEASE Anti Hepatitis A IgM NEGATIVE (N)?? 06/22/2022 06:36 Hepatitis B Surface Antigen NEGATIVE (N)?? 06/22/2022 06:36 Hepatitis B Core Ab, IgM NEGATIVE ()?? 06/22/2022 06:36 Hepatitis C Ab NEGATIVE (N)?? 06/22/2022 06:36 ?? TOXICOLOGY/TDM Cannabinoid Screen, Urine NONE DETECTED ()?? 06/22/2022 14:49 ? UA/URINALYSIS Appear/Color, Urine LIGHT YELLOW ()?? 06/22/2022 14:49 Specific [place], Urine 1.013 ()?? 06/22/2022 14:49 pH, Urine 6.0 ()?? 06/22/2022 14:49 Albumin, Urine 3+ (Abnormal)?? 06/22/2022 14:49 Glucose, Urine 1+ (Abnormal)?? 06/22/2022 14:49 Ketones, Urine NEGATIVE ()?? 06/22/2022 14:49 Bilirubin, Urine NEGATIVE ()?? 06/22/2022 14:49 Hemoglobin, Urine TRACE (Abnormal)?? 06/22/2022 14:49 Nitrite, Urine NEGATIVE ()?? 06/22/2022 14:49 Leukocyte, Urine NEGATIVE ()?? 06/22/2022 14:49 Urobilinogen NORMAL mg/dL ()?? 06/22/2022 14:49 WBC's, Urine 4 /HPF ()?? 06/22/2022 14:49 RBC's, Urine 1 /HPF ()?? 06/22/2022 14:49 Bacteria SLIGHT HPF (Abnormal)?? 06/22/2022 14:49 Squamous Epith 3 /HPF ()?? 06/22/2022 14:49 Hyaline Cast 1 LPF ()?? 06/22/2022 14:49 Hold Urine Culture Testing available 48 hours from time of collection. ()?? 06/22/2022 14:49 ? VIROLOGY COVID-19 by RT-PCR NEGATIVE ()?? 06/21/2022 18:46 ? 35 minutes spent on discharge * Renetta Correia RN: PERFORM Event Display: Patient Education/Instruction Authored Date: [id number] Inpatient Adult Discharge Instructions [address] [address] Name: SHEREEN TAYLOR : 1990 Visit: 06/21/2022 23:49:00 Current Date: 06/23/2022 11:19 Account: [id number] Inpatient Adult Discharge Instructions We would like [...] and their families. Surveys are administered by [employer] ?? If further treatment with your primary care physician or another doctor is recommended, it is important for you to keep the appointment. Call your primary care physician or return to the Emergency Department immediately if your condition worsens, fails to improve, or new symptoms develop. If you need to find a doctor, you can call [facility] for a referral at [phone] or toll free at [phone] or log in to [email or web address] ?? You can view and manage your care through the patient portal or by using a health care calos of your choosing. [employer] is a website that allows you to securely view your medical information including your hospital discharge summary, office visit summaries, medications and follow-up visits. You can also request appointments, renew medications, and request access to your medical information using a health care calos of your choosing, or just ask a question. You can enroll at [email or web address] or register during your next office visit. You have been discharged from [facility], Patient Care Unit: M5. If you have any questions regarding these instructions after you leave, please call us and we will be happy to assist you. [facility] Your Care Team Attending Physician Alba CARLSON, Cynthia Consulting Providers Daniel CARLSON, [place]; Nico CARLSON, Ovidio Medina Discharging Providers Alba CARLSON, Cynthia Reason for Your Visit Pt c/o LUQ abdm pain, cough. Wound on left foot, not healing. Increased edema RLE. Your Diagnosis CHF (congestive heart failure) General medical History of anemia due to chronic kidney disease Tests Performed Below is a partial list of the tests performed during your hospitalization. You may have had other tests and procedures not included in this list. Please discuss all test results with your provider. Cannabinoid Urine Screen CBC CBC w/ Differential Comprehensive Metabolic Panel COVID-19 (Novel Coronavirus), Rapid PCR GLUCOSE POC HEMOGLOBIN A1C Hepatitis Profile IgG Level INR Lactate Level Lipase LIPID PANEL Phosphorus Level Serum Qualitative ProBNP PT (INR) Troponin T, High Sensitivity Urinalysis w/hold for Urine Culture Brain CT W/O Contrast CT Abdomen and Pelvis W/O Contrast US Doppler Ext Lower Venous Left XR Chest 2 Views Frontal and Lat XR Foot Min 3 Views Left Primary Care Provider Chirag CARLSON, Abdon Advance Directive . Discharge Vitals Temperature: 98 DegF Height: 167.64 cm Pulse Rate: 84 bpm Weight: 91 kg Respiratory Rate: 18 br/min Body Mass Index:??32.67 kg/m2??Critical Systolic Blood Pressure:??158 mm Hg??High Body surface area: 2.07 Systolic Blood Pressure:??158 mm Hg??High ?? Diastolic Blood Pressure: 81 mm Hg ?? Diastolic Blood Pressure: 81 mm Hg ?? Oxygen Saturation: 94 % ?? Studies Pending All tests and labs ordered during this hospital stay have been completed unless listed below. Please discuss all pending results with your provider listed above in these instructions. ?? MUNA Screen Add On Lab Order Basic Metabolic Panel High??Sensitivity??Troponin T (Troponin T, High Sensitivity) Smooth Muscle Ab Screen Wound Deep Culture w/ Gram Smear What to do next Instructions From Your Doctor You are admitted for flare up of diabetic gastroparesis, this is caused by nerve damaged leading toflaccid stomach with nausea and vomiting; Please avoid food that is??fatty, acidic, spicy, and roughage-based, and minimize nondigestible fiber intake such as fresh??fruits and vegetables, take Reglan as needed to help with nausea and vomiting before meals; Please do NOT take this medication consecutively for more than 12 weeks due to potential neurological complications; ?? Your blood pressure is better controlled and new medications are prescribed (amlodipine 10 mg daily, hydralazine increased to 50 mg three times??a day), please monitor your blood pressure daily and keep a diary for outpatient provider to review and adjust, with long-term goal of 120/80 mmHg or below; ?? A brief course of antibiotics (doxycycline) will be prescribed for minor left foot infection, please ensure adequate water intake as this medication may irritate your stomach; ?? You are anemic (low blood cell count) related to kidney disease, please start iron tablet, please ensure taking Colace or laxatives to avoid constipation which is common when taking iron tablets; ?? Your blood work also showed mild liver function abnormalities, but it is improving, viral hepatitistests are negative, additional tests are in progress and please follow up with primary care provider within 2-3 weeks regarding the results, and to manage other medication issues; Follow up with primary energy trader as scheduled; ?? Return to nearest emergency room or call 911 if you experience fever T>100.4F, chill, chest painlast longer than 10 minutes, shortness of breath, persistent nausea/vomiting, unable to tolerate diet, worsening pain, discharge or redness of left foot wound, skin or eye ball yellowish discoloration (jaundice) or other severe and/or persistent symptoms. Discharge Orders Activity:??Activity as tolerated Code Status:?? Full Resuscitation Condition:??Stable Prognosis:??Fair You Need to Schedule the Following Appointments Follow Up with??Abdon Beard MD When??Within 2 to 3 weeks Where: [address] [place] [address]- Discharge Medications RANGELSHEREEN :1990 Visit Date:06/21/2022 Medications: Please continue your medications until treatment is completed or stopped by your provider. Medications not listed below should be discontinued. Discuss any questions related to medications with your provider. What How Much When Instructions Next Dose New Amlodipine (amLODIPine 10 mg oral tablet) 1 tab(s) Oral Daily Pickup at [facility]/pharmacy #2070 tomorrow AM New Docusate (Colace sodium 100 mg oral capsule) 1 capsule Oral Daily as needed for for constipation Refills: [address] [facility]/pharmacy #2070 resume as needed New Doxycycline (doxycycline hyclate 100 mg oral tablet) 1 capsule Oral Every 12 hours Duration: [address] [facility]/pharmacy #2070 resume New Ferrous Fumarate (ferrous fumarate 324 mg oral tablet) 1 tab(s) Oral Daily Pickup at [facility]/pharmacy #2070 tomorrow AM Changed Metoclopramide (Reglan 5 mg oral tablet) 1 tab(s) Oral 3 times a day before meals as needed for Nausea & Vomiting Duration: [address] [facility]/pharmacy #2070 before any meal Changed hydrALAZINE (hydrALAZINE 50 mg oral tablet) 1 tab(s) Oral 3 times a day Pickup at [facility]/pharmacy #2070 next at 3:00pm Changed sodium bicarbonate (sodium bicarbonate 650 mg oral tablet) 1 tab(s) Oral 3 times a day Pickup at [facility]/pharmacy #2070 next at 3:00pm Unchanged Albuterol (Albuterol (Eqv-ProAir HFA) 90 mcg/ inh inhalation aerosol) 2 puff(s) Inhalation Every 4 hours as needed Unchanged Aspirin (Aspirin Low Dose 81 mg oral delayed release tablet) 1 tab(s) Oral Daily tomorrow AM Unchanged Carvedilol (Coreg 25 mg oral tablet) 1 tab(s) Oral Twice a day tonight Unchanged Durable Medical Equipment (Pen [place], 31 G x 5 mm BD Ultra Fine III) See instructions Duration: 30 Days use as directed for Type 2 Diabetes Mellitus ?? resume Unchanged Fluticasone Nasal (Flonase 50 mcg/ inh nasal spray) 1 spray(s) Nares, Both Twice a day resume Unchanged Isosorbide Mononitrate (isosorbide mononitrate 30 mg oral tablet, extended release) TAKE 1 TABLET BY MOUTH EVERY DAY ?? tomorrow AM Unchanged Pantoprazole (pantoprazole 40 mg oral delayed release tablet) 1 tab(s) Oral Daily tomorrow AM Unchanged Rosuvastatin (Crestor 5 mg oral tablet) 1 tab(s) Oral Daily tomorrow AM Unchanged Scopolamine (scopolamine 1 mg/ 72 hr transdermal film, extended release) 1 Film Topically Every 72 hours resume Unchanged torsemide (torsemide 20 mg oral tablet) 1 tab(s) Oral Twice a day [facility] Pharmacy Information [facility]/pharmacy #[id number]: [address], [place] [id number] [phone] ?? What How Much When Comments Stop Taking Acetaminophen (acetaminophen 325 mg oral capsule) 2 capsule Oral Every 4 hours as needed for as needed for pain Stop Taking Cyclobenzaprine (cyclobenzaprine 10 mg oral tablet) TAKE 1 TABLET BY MOUTH THREE TIMES A DAY NEEDED FOR MUSCLE SPASM ?? Stop Taking Diclofenac Topical (diclofenac 1% topical gel) 2 gram Topically 4 times a day Stop Taking Hydromorphone (HYDROmorphone 2 mg oral tablet) TAKE 1 TABLET BY MOUTH EVERY 6 HOURS NEEDED FOR PAIN ?? Stop Taking Insulin Aspart (NovoLOG FlexPen 100 units/ mL injectable solution) 11-12 UNITS Subcutaneous Injection 3 times a day before meals (NOT TAKING & HASN'T IN MONTHS) ?? Stop Taking Insulin Detemir (Levemir FlexTouch 100 units/ mL subcutaneous solution) 8 unit(s) Subcutaneous Injection Daily in the morning Stop Taking Lidocaine Topical (lidocaine 5% topical film) APPLY 1 PATCH TOPICALLY DAILY LEAVE ON MOST PAINFUL AREA FOR UP TO 12 HOURS ?? Stop Taking NIFEdipine (NIFEdipine 30 mg oral tablet, extended release) 1 tab(s) Oral Daily Duration: 30 Days Stop Taking Ondansetron (ondansetron 4 mg oral tablet) 1 tab(s) Oral Every 8 hours as needed for Nausea & Vomiting Stop Taking Oxycodone (oxyCODONE 5 mg oral tablet) TAKE 1 TABLET (5 MG) BY MOUTH EVERY 6 (SIX) HOURS IF NEEDED FOR SEVERE PAIN FOR UP TO 12 DAYS. ?? Test Results Below is a partial list of the most recent Laboratory test results done prior to this discharge. You may have had other tests and procedures not included in this list. Please discuss all test resultswith your provider. Cannabinoid Urine Screen (06/22/2022) ???Cannabinoid Screen, Urine - NONE DETECTED CBC (06/23/2022) ???WBC - 3.8 k/mm3???RBC - 2.99 m/mm3???Hgb - 7.8 Gm/dL???Hct - 26.3 %???MCV - 88.0 femtoliters???MCH - 26.1 pg???MCHC - 29.7 g/dL???Platelet Count - 189 k/mm3???RDW-SD - 55.0 femtoliters???MPV - 12.5 femtoliters???Nucleated RBC (Automated) - 1.1 #/100 WBC'S???Abs. NRBC - 0.0 k/mm3 CBC w/ Differential (06/21/2022) ???WBC - 6.6 k/mm3???RBC - 3.17 m/mm3???Hgb - 8.6 Gm/dL???Hct - 28.4 %???MCV - 89.6 femtoliters???MCH - 27.1 pg???MCHC - 30.3 g/dL???Platelet Count - 265 k/mm3???RDW-SD - 54.8 femtoliters???MPV - 12.3 femtoliters???Nucleated RBC (Automated) - 0.5 #/100 WBC'S???Abs. NRBC - 0.0 k/mm3???Abs. Neut - 5.3 k/mm3???Abs. Lymph - 0.6 k/mm3???Abs. Marathon - 0.5 k/mm3???Abs. Eo - 0.1 k/mm3???Abs. Baso - 0.0 k/mm3???Neut % - 81.2 %???Lymph % - 8.4 %???Marathon % - 7.6 %???Eos % - 1.4 %???Baso % - 0.6 %???Imm Gran - 0.8 %???Abs. Imm Gran - 0.1 k/mm3 Comprehensive Metabolic Panel (06/23/2022) ???Sodium - 137 mmol/L???Potassium - 4.0 mmol/L???Chloride - 108 mmol/L???Bicarbonate Level - 17 mmol/L???Anion Gap - 12???Glucose Level - 95 mg/dL???BUN - 49 mg/dL???Creatinine-Blood - 3.5 mg/dL???Estimated GFR Creatinine - 17 ML/MIN/1.73 M2???Calcium - 8.0 mg/dL???Protein, Total - 5.6 Gm/dL???Albumin - 2.9 Gm/dL???AG Ratio - 1.1???Alkaline Phosphatase - 120 units/L???AST (SGOT) - 105 units/L???ALT (SGPT) - 255 units/L???Bilirubin, Total - 0.6 mg/dL COVID-19 (Novel Coronavirus), Rapid PCR (06/21/2022) ???COVID-19 by RT-PCR - NEGATIVE GLUCOSE POC (06/23/2022) ???Glucose, POC - 82 mg/dL HEMOGLOBIN A1C (06/21/2022) ???Hemoglobin A1C (Monitoring) - 6.4 % Hepatitis Profile (06/22/2022) ???Anti Hepatitis A IgM - NEGATIVE???Hepatitis B Surface Antigen - NEGATIVE???Hepatitis B Core Ab, IgM - NEGATIVE???Hepatitis C Ab - NEGATIVE IgG Level (06/23/2022) ???IgG - 1291 mg/dL INR (06/23/2022) ???INR - 1.2???Protime (PT) - 12.8 seconds Lactate Level (06/21/2022) ???Lactate - 1.5 mmol/L Lipase (06/21/2022) ???Lipase - 79 units/L LIPID PANEL (06/21/2022) ???Cholesterol - 128 mg/dL???Triglycerides - 84 mg/dL???HDL Cholesterol - 42 mg/dL???LDL Cholesterol - 69 mg/dL???Non HDL Cholesterol - 86 mg/dL Phosphorus Level (06/23/2022) ???Phosphorus - 6.1 mg/dL Serum Qualitative (06/21/2022) ??? Serum Qual - NEGATIVE ProBNP (06/21/2022) ???Nt-Probnp - 56032 pg/mL PT (INR) (06/22/2022) ???INR - 1.3???Protime (PT) - 13.2 seconds Troponin T, High Sensitivity (06/22/2022) ???High Sensitivity Troponin (HSTnT) - 93 ng/L Urinalysis w/hold for Urine Culture (06/22/2022) ???Appear/Color, Urine - LIGHT YELLOW???Specific [place], Urine - 1.013???pH, Urine - 6.0???Albumin, Urine - 3+???Glucose, Urine - 1+???Ketones, Urine - NEGATIVE???Bilirubin, Urine - NEGATIVE???Hemoglobin, Urine - TRACE???Nitrite, Urine - NEGATIVE???Leukocyte, Urine - NEGATIVE???Urobilinogen - NORMAL???WBC's, Urine - 4 /HPF???RBC's, Urine - 1 /HPF???Bacteria - SLIGHT???Squamous Epith - 3 /HPF???Hyaline Cast - 1 LPF???Hold Urine Culture - Testing available 48 hours from time of collection. Allergies (NKA means No Known Allergies) Zosyn??(angioedema) gabapentin??(Itching of tongue) traMADol??(Itching of tongue) morphine??(Itching) vancomycin??(Tightness in throat) Problems Active Problems??(15) Asthma?? Blindness of right eye?? Cardiac disease during , antepartum?? Care Coordination [facility], [place], [facility] ?? CKD (chronic [...] Educational Leaflet Providered with your Discharge Instructions. Doxycycline Oral Tablet?? Gastroparesis?? Valuables and Belongings I fully understand and agree that [facility] accepts no responsibility for all my personal [...] patient Date for Pt to Sign Valuables/Belongings: 06/22/22 02:37:00 ?? Other Discharge Information ?? Wound Assessment?? Wound Assessment?? Wound Location I: Foot, left Wound Type I: Partial thickness Wound I, Present on Admission: Yes ? [...] are strongly encouraged to quit. Please call [facility] at [phone] or [phone] or log in to [email or web address] for referrals to smoking cessation programs. ?? 044 Suicide & Crisis Lifeline is available 18/09 if you or someone you know needs to find a reason to keep living. By calling 968 you'll be connected to a skilled, trained counselor at a crisis center in your area. INPATIENT DISCHARGE INSTRUCTIONS SIGNATURE SHEREEN WATTS Location:[facility] Registration Date and Time:06/21/2022 23:49 EDT Primary Care Physician: Abdon Beard MD, SHEREEN YUEN, have received the above patient education materials/instructions and have verbalized understanding. If ambulance or transport services are being used I further acknowledge beinggiven a choice of service. ?? If you need to contact me, please call me at this number: . Patient/[place] Name: Patient/[place] Signature: Relationship to Patient: Witness Name/Signature: Date: * Cynthia Willis MD: PERFORM Event Display: Patient Education Leaflets Authored Date: [id number] Doxycycline Oral Tablet ?? [id number] Doxycycline Oral Tablet Brands: Acticlate, Adoxa, Avidoxy, Targadox Uses For treating bacterial infection. ?? Instructions Take the medicine with 250 mL (1 cup) of water. Take on empty stomach - 1 hour before or 2 hours after eating. Sit or stand upright for 30 minutes after taking the medicine. Do not lie down. Keep the medicine at room temperature. Avoid heat and direct light. Do not take any antacid or vitamins with magnesium, calcium, aluminum, or iron for 2 hours before and 2 hours after taking this medicine. This medicine can make you sensitive to the sun. Use sunscreen or protective clothing when in sun. If you forget to take a dose [...] about all medicines taken. Include prescription and pwzn-quu-[id number] medicines, vitamins, and herbal medicines. Speak with your doctor or pharmacist before starting or stopping any medicine. Keep using this medicine for the full number of days that it is prescribed. Do not stop the medicine even if you start to feel better. This medicine can cause permanent change in teeth color in children. ?? Cautions Tell your doctor and pharmacist if you ever had an allergic reaction to a medicine. Do not use the medication any more than instructed. Contact your doctor if you notice a change in the amount or darkening of your urine. Please tell your doctor if you have moderate to severe diarrhea while on this medicine. Do not treat the diarrhea with twwm-bjq-rwualez diarrhea medicine. Tell the doctor or pharmacist [...] or other side effects. ??? diarrhea ??? nausea and vomiting ??? stomach upset or abdominal pain ??? yeast infection of mouth ??? vaginal itching or yeast infection Call your doctor or get medical help right away if you notice any of these more serious side effects: ??? swelling in the neck or throat ??? difficulty swallowing ??? blurring or changes of vision A few people may have an allergic reaction to this medicine. Symptoms can include difficulty breathing, skin rash, itching, swelling, or severe dizziness. If you notice any of these symptoms, seek medical help quickly. ?? Extra Please speak with your doctor, nurse, or pharmacist if you have any questions about this medicine. ?? [email or web address] IMPORTANT NOTE: This document tells you briefly how to take your medicine, but it does not tell youall there is to know about it. Your doctor or pharmacist may give you other documents about your medicine. Please talk to them if you have any questions. Always follow their advice. There is a more complete description of this medicine available in E[place]an. Scan this code on your smartphone or tablet or use the web address below. You can also ask your pharmacist for a printout. If you have any questions, please ask your pharmacist. The display and use of this drug information is subject to Terms of Use. Copyright(c) 2022 [employer]. ?? The [employer]. All rights reserved. This information is not intended as a substitute for professional medical care. Always follow your healthcare professional's instructions. ?? * Cynthia Willis MD: PERFORM Event Display: Patient Education Leaflets Authored Date: [id number] Gastroparesis ?? 80344 Gastroparesis Gastroparesis is a disorder that slows or stops the flow of food from your stomach into the small intestine. It's also called delayed gastric emptying. It's caused by a problem with motility. This isthe movement of the muscles in the digestive tract. This condition isn't because of any blockage inthe stomach or small intestine that would prevent food from moving through. For many people, gastroparesis is a lifelong health problem. But treatment can help ease symptoms and prevent complications. Read on to learn more about gastroparesis and how it can be managed. Gastroparesis means that food and fluids move too slowly out of the stomach into the duodenum. How gastroparesis develops With normal motility, signals from nerves tell the stomach muscles when to contract. These muscles move food from the stomach into the first part of the small intestine (the duodenum). With gastroparesis, the nerves or muscles are damaged. This causes motility to slow down or stop. As a result, food can't move from the stomach as it should into the small intestine. This delayed emptying can causenausea, vomiting, and other symptoms. Malnutrition can result. Bezoars (hardened lumps of food) canform in the stomach and cause other problems as well. ?? Causes of gastroparesis Gastroparesis can be caused by any of these: ??? Diabetes ??? Surgery of any of the digestive organs, such as the stomach and intestines ??? Certain medicines, such as strong pain medicines (opioids) and some antidepressants ??? Underactive thyroid (hypothyroidism) ??? Central nervous system disorders such as Parkinson disease and multiple sclerosis ??? Some autoimmune diseases such as systemic scleroderma. ??? Viral stomach infection In many cases, the cause of gastroparesis may not be known. ?? Symptoms of gastroparesis These can include: ??? Upset stomach (nausea) and vomiting ??? Feeling full quickly when eating ???Belly pain ??? Heartburn ??? Belly bloating ??? Weight loss ??? Loss of appetite ??? High and low blood sugar levels (in people with??diabetes) ?? Diagnosing gastroparesis Your healthcare provider will ask about your symptoms and health history. You???ll also be examined. In addition, blood tests and X-rays are often done to check your health and rule out other problems. To confirm the problem, you may need other tests as well, such as: ??? Upper endoscopy.??This is done??to see inside the stomach and duodenum. For the test, an endoscope is used. This is a thin, flexible tube with a tiny camera on the end. It???s inserted through the mouth and down into the stomach and duodenum. ??? Upper gastrointestinal (GI) series.??This is done??to take X-rays of the upper GI tract from the mouth to the small intestine. For the test, a substance called barium is swallowed. The barium coats the upper GI tract so that it will show up clearly on X-rays. ??? Radioisotope gastric-emptying scan.??This is done to measure how quickly food leaves the stomach. For the test, a meal containing a harmless radioactive substance (tracer) is eaten. Then scans of the stomach are done. The tracer shows up clearly on the scans. It shows the movement of the food through the stomach. ??? Gastric (antroduodenal) manometry. This test gives pressure measurements of the stomach and small intestine. It checks how the contractions are working. ??? Wireless capsule study. For this test, you swallow a wireless capsule. The capsule measures how well your stomach empties and how fast foodand fluids move through your intestines. You'll pass the capsule out of your body with a bowel movement. ??? Gastric emptying breath test (GEBT). This test checks stomach emptying. It measures how much carbon dioxide you breathe out over several hours after eating food. ??? Scintigraphic gastric accommodation. This test measures your stomach contents before and after a meal. It also checks how well your stomach relaxes after you eat food. ?? Treating gastroparesis The goal of treatment is to help you manage your condition. Treatment may include 1 or more of these: ??? Dietary changes.??You may need to make changes to your eating habits and daily diet. For instance, your healthcare provider may tell you to eat small meals during the day. Doing this can keep you from feeling full too quickly. You may be placed on a liquid or ???soft?? diet. This means you???ll eat liquid foods or foods that are mashed or put through a fire support specialist. Plus, you may need to stay away from foods high in fats and fiber. These can slow digestion. For more help with your diet, your healthcare provider can refer you to a dietitian. In severe cases, you may need a feeding tube. Thissends liquid food or medicine directly to your small intestine, bypassing the stomach. ??? Treatingdiabetes. If you have diabetes, it's important to control your blood sugar. High sugar levels may make gastroparesis worse.? Medicines.??These can help manage symptoms, such as nausea and vomiting. They can also improve motility. Each medicine has certain risks and side effects. Your healthcare provider can tell you more about any medicine that's prescribed for you. Also, if you're on opioidpain relievers and certain other medicines, your provider may also advise stopping these if they'readding to your gastroparesis. ??? Surgery.??You may need to have a tube surgically put into your stomach. The tube removes excess air and fluid. This can ease severe symptoms of nausea and vomiting. In rare cases, other surgery may be needed on the stomach or small intestine. This is to make a new passageway for food to be emptied from the stomach. ??? Gastric electrical stimulation. This treatment is done less often and may not be available. Your healthcare provider can tell you more about this treatment if it's a choice for you. ?? Diabetes and gastroparesis If you have diabetes, gastroparesis can make it harder to manage your blood sugar level. You???ll need to take extra steps in your treatment to prevent complications. Work with your healthcare provider to learn what you can do to protect your health. For more information, contact the [employer]. ?? Long-term concerns?? With treatment, most people can manage their symptoms and keep up their normal routines. If your symptoms are moderate to severe, you may need to see your healthcare provider more often for checkups.Also, other treatments will likely be needed. ?? Last Reviewed Date: 2020 ?? [id number] The [employer]. All rights reserved. This information is not intended as a substitute for professional medical care. Always follow your healthcare professional's instructions. ?? * Giorgioscgibson , CIS S: TRANSCRIBE Apollo Drew MD: VERIFY Event Display: Result: Authored Date: Chest 2 Views Frontal and Lat Hx of Present Illness: Pt c o LUQ abdm pain, cough. Wound on left foot, not healing. Increased edema RLE; Reason: CHF; Clinical Question(s): Pleural Effusion COMPARISON: None. FINDINGS: LINES AND TUBES: None. LUNGS AND PLEURA: Central vascular engorgement and hazy perihilar opacities. HEART, MEDIASTINUM AND EVERT: Prominent cardiac silhouette. BONES AND SOFT TISSUES: No acute abnormality. IMPRESSION: Pulmonary edema suspected. WSN: [id number] Ordering Physician: Kelli Fink Dictated By: Apollo Drew MD Dictated Date/Time: 06/21/22 8:00 pm Reviewed By: Apollo Drew MD Signed By: Apollo Drew MD Signed Date/Time: 06/21/22 8:00 pm Transcribed By: ALEXIS Transcribed Date/Time: 06/21/22 7:54 pm * CLIFFSPowerscribe , CIS S: TRANSCRIKaveh Hidalgo MD: VERIFY Svitlana Barraza DO: SIGN Event Display: Result: Authored Date: [id number] US Doppler Ext Lower Venous Left Hx of Present Illness: Pt c o LUQ abdm pain, cough. Wound on left foot, not healing. Increased edema RLE; Reason: Other:; Pain in limb; Clinical Question(s): Thrombus; Order Comment: 06 21 2022 19:44:25 EDT gabriela SORIANO COMPARISON: None IMAGING TECHNIQUE: Ultrasound of the veins from the groin through the calf was performed using grayscale, color, and spectral Doppler ultrasound assessing for complete compressibility and normal flowcharacteristics. FINDINGS: Common femoral vein: Patent. No thrombosis. Femoral vein: Patent. No thrombosis. Popliteal vein: Patent. No thrombosis. Gastrocnemius veins: The visualized portions are patent without evidence of thrombosis. Peroneal veins: The visualized portions are patent without evidence of thrombosis. Posterior tibial veins: The visualized portions are patent without evidence of thrombosis. Contralateral common femoral vein: Patent. No thrombosis. OTHER FINDINGS: None. IMPRESSION: No evidence of deep venous thrombosis. I have personally reviewed the images and I agree with this report. WSN: [id number] Ordering Physician: Kelli Fink Dictated By: Svitlana Barraza DO Dictated Date/Time: 06/21/22 10:12 p Reviewed By: Kaveh Chambers MD Signed By: Kaveh Chambers MD Signed Date/Time: 06/21/22 10:17 pm Transcribed By: ALEXIS Transcribed Date/Time: 06/21/22 10:[address] Head WO contrast * BHSPowerscribe , CIS S: TRANSCRIBE Tyron CARLSON, Kareem B: VERIFY Shahriar[Radiology] Flex CARLSON: SIGN Event Display: Result: Authored Date: [id number] CT Head/Brain W/O Contrast INDICATION: Headache, hypertensive urgency. TECHNIQUE: Noncontrast head CT using axial technique and reconstructed in axial and coronal planes.Iterative reconstruction techniques are used to optimize dose and image quality. CTDIvol Head: 48.20 mGy, DLP Head: 772 mGy*cm. COMPARISON: 04/07/2022. FINDINGS: Powertrain Design Engineer view findings, lines and tubes: None. BRAIN AND EXTRA-AXIAL SPACES: No parenchymal hemorrhage, midline shift, or mass effect. Ventura-white matter differentiation is wellpreserved. No acute infarct. Negative insular ribbon sign. Atherosclerotic vascular calcification of the carotid arteries but negative hyperdense vessel sign. Mild stable prominence of the ventricles. No white matter lesions. No subarachnoid hemorrhage. No subdural or epidural collection. CALVARIUM, SKULL BASE, AND SOFT TISSUES: No fractures or suspicious bony lesions. The paranasal sinuses and mastoid air cells are clear. Visualized orbits and globes are intact. The extracranial soft tissues are unremarkable. IMPRESSION: No acute intracranial pathology. I have personally reviewed the images and I agree with this report. WSN: [id number] Ordering Physician: Cynthia Willis Dictated By: Shahriar[Radiology] Flex CARLSON Dictated Date/Time: 06/22/22 3:19 pm Reviewed By: Kareem Ackerman MD Signed By: Kareem Ackerman MD Signed Date/Time: 06/22/22 3:24 pm Transcribed By: ALEXIS Transcribed Date/Time: 06/22/22 2:[address] Abdomen and Pelvis WO contrast * BHSPowerscribe , CIS S: TRANSCRIBE Lorena CARLSON, Devrim: VERIFY Event Display: Result: Authored Date: [id number] PROCEDURE: CT Abdomen and Pelvis W/O Contrast CLINICAL INDICATION: 31 years old Female with Hx of Present Illness: Pt c o LUQ abdm pain, cough. Wound on left foot, not healing. Increased edema RLE; Reason: Other:; Flank pain, kidney stone suspected; Clinical Question(s): Calculus; left Side flank, elevated LFTs; Order Comment:. TECHNIQUE: Helical 3 mm axial images obtained of the abdomen and pelvis without IV contrast. Coronal and sagittal reformations performed. Enteric contrast not given. Weight-based protocol using automatic tube modulation utilized to optimize exposure parameters. CTDIvol Body: 22.17 mGy, DLP Body: 1112 mGy*cm. COMPARISONS: 03/25/2022. FINDINGS: Lung Bases: Similar moderate volume right pleural effusion. Trace left pleural effusion is decreased since the prior CT. Partially imaged pericardial effusion. Liver: Portions of the cephalad aspect not imaged. Unremarkable as visualized on this unenhanced exam. Gallbladder: Absent consistent with prior cholecystectomy. Bile ducts: No intra or extra hepatic bile duct dilation. Spleen: Portions of the cephalad aspect not imaged. Unremarkable as visualized on this unenhanced exam. Pancreas: Normal. Adrenal Glands: Normal. Kidneys, ureters and bladder: Kidneys are normal in size and location. No evidence of calculi or hydronephrosis. No focal lesions. No perinephric collections. No evidence of ureteral calculi or dilatation. Urinary bladder is well-distended by urine. No evidence of wall thickening, calculi or gas. Bowel: Bowel is not well evaluated without oral and IV contrast. No definite wall thickening and noevidence of abnormal dilatation or pneumatosis. Appendix is normal. Mesentery and peritoneal cavity: Small volume abdominopelvic ascites, new since the prior CT. Diffuse mesenteric edema. No evidence of pneumoperitoneum. Lymph nodes: Several mildly enlarged para-aortic lymph nodes measuring up to 1.3 cm in short axis. Bilateral iliac chain lymphadenopathy with the largest measuring 1.5 cm in the right external iliac region. There are also prominent bilateral femoral lymph nodes with the largest measuring 1.4 cm on the left. Vascular structures:Aorta and pelvic arteries are normal in caliber. Mild to moderate degree of arterial calcifications. Abdominal wall: Diffuse subcutaneous edema and skin thickening. Pelvic Organs: Normal CT appearance. Bones: No fractures or dislocations. Degenerative disc disease at L4/L5. IMPRESSION: 1. New small volume abdominopelvic ascites and diffuse anasarca. 2. Moderate right and trace left pleural effusions, and partially imaged pericardial effusion. 3. Nonspecific retroperitoneal and pelvic lymphadenopathy, most likely reactive. Thank you for allowing me to participate in the care of this patient. WSN: [id number] Ordering Physician: Kelli Fink Dictated By: Kenyatta Carrillo MD Dictated Date/Time: 06/21/22 11:00 p Reviewed By: Kenyatta Carrillo MD Signed By: Kenyatta Carrillo MD Signed Date/Time: 06/21/22 11:00 pm Transcribed By: ALEXIS Transcribed Date/Time: 06/21/22 10:53 pm XR Foot - left GE 3 Views * BHSPcelena , CIS S: TRANSCRIEmy White MD: VERIFY Event Display: Result: Authored Date: [id number] Foot Min 3 Views Left, 3 views Reason: Pain; Clinical Question(s): Osteomyelitis. COMPARISON: Left foot radiographs dated 03/12/2022. 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 Unchanged deformity of the fourth metatarsal distally. Periosteal new bone formation along the lateral aspect of the second and third metatarsals is not significantly changed. Unchanged malalignment of the tarsometatarsal joints with bony fragmentation superiorly deformity of the navicular. Within the interspace between the first and second metatarsalbases is unchanged. No focal soft tissue swelling or radiopaque foreign body. IMPRESSION: Chronic findings as above with no findings to suggest acute osteomyelitis. WSN: [id number] Ordering Physician: Flora Baker Dictated By: Emy Campbell MD Dictated Date/Time: 06/22/22 10:37 a Reviewed By: Emy Campbell MD Signed By: Emy Campbell MD Signed Date/Time: 06/22/22 10:37 am Transcribed By: ALEXIS Transcribed Date/Time: 06/22/22 10:20 am Patient Care team information Care Team Personnel Name: Elizabeth Cabezas Position: [facility] RN Member Role: Primary Care Nurse Name: Anuradha Morris RN Position: S RN Member Role: Primary Care Nurse Name: Samantha Reynolds RN Position: [facility] RN Member Role: Primary Care Nurse Name: Omega Gillespie RN Position: [facility] RN Member Role: Primary Care Nurse Name: Doreen Estrada RN Position: [facility] RN Member Role: Primary Care Nurse Name: Paty Kelly RN Position: [facility] RN Member Role: Primary Care Nurse Name: Sonia Malone Position: S RN Member Role: Primary Care Nurse Name: Keira Desai RN Position: [facility] RN Member Role: Primary Care Nurse Name: Gomez Moseley RN Position: [facility] RN Supluis Member Role: Primary Care Nurse Name: Vashti Bruce RN Position: S RN Member Role: Primary Care Nurse Name: Raghav Granger Position: S RN Member Role: Primary Care Nurse Name: Cassy Caraballo RN Position: S RN Member Role: Primary Care Nurse Name: Jodi Carrillo RN Position: S RN Member Role: Primary Care Nurse Name: Abbey Shelley RN Position: S RN Member Role: Primary Care Nurse Name: Larissa Barnett RN Position: [facility] RN Member Role: Primary Care Nurse Name: Inna Beckwith RN Position: [facility] RN Member Role: Primary Care Nurse Name: Cady Araya RN Position: [facility] RN Member Role: Primary Care Nurse Name: Abdon Beard MD Position: [facility] Outreach Member Role: PCP Address: Address: [address] [place] [address]- [place] Name: Anuradha Frank Position: [facility] RN Member Role: Primary Care Nurse Name: Renetta Correia RN Position: [facility] RN Member Role: Primary Care Nurse Name: Michele Blancas DO Position: [facility] Renal MD Member Role: Lifetime Consulting Physician Address: Address: [address] [facility] [facility] [place] [address]- Name: María Acosta RN Position: [facility] RN Member Role: Primary Care Nurse Name: Treasure Gilbert RN Position: [facility] RN Supv Member Role: Primary Care Nurse Name: Farzana Sevilla Position: [facility] RN Member Role: Primary Care Nurse Name: Javan Pimentel MD Position: [facility] Renal MD Member Role: Lifetime Consulting Physician Address: Address: [address] [facility] [place] [place] [address]- [place] Name: Heather Pal RN Position: [facility] RN Member Role: Primary Care Nurse Name: Jody Rasmussen RN Position: [facility] RN Member Role: Primary Care Nurse Name: Luisa Devine RN Position: [facility] RN Member Role: Primary Care Nurse Name: Mau Hazel RN Position: [facility] RN Member Role: Primary Care Nurse Name: Pedro Taylor RN Position: [facility] RN Member Role: Primary Care Nurse Name: Charlotte Singletayr RN Position: [facility] OB RN Member Role: Primary Care Nurse Name: Alison Jose RN Position: [facility] RN Member Role: Primary Care Nurse Name: Kendall Coleman RN Position: [facility] RN Member Role: Primary Care Nurse Name: Nacny Fair RN Position: [facility] SN RN Member Role: Primary Care Nurse Name: Sofie Reed Position: [facility] RN Member Role: Primary Care Nurse Name: Kasia Vital RN Position: [facility] RN Member Role: Primary Care Nurse Name: Fernando Siddiqi MD Position: [facility] Renal MD Member Role: Lifetime Consulting Physician Address: Address: [address] [place] [address] [facility] [place] [address]- Name: Kaelyn Lewis RN Position: [facility] RN Member Role: Primary Care Nurse Name: Lianne Byrnes RN Position: [facility] RN Member Role: Primary Care Nurse Name: Tona Jacome LPN Position: [facility] RN Member Role: Primary Care Nurse Name: Tatiana Madrigal RN Position: S RN Member Role: Primary Care Nurse Name: Ashely Riley RN Position: [facility] RN Member Role: Primary Care Nurse Name: Vy RAMIREZ Attending Position: [facility] ED Medicine MD Name: Kelli Ro Position: [facility] Associate Professional Member Role: ED Physician Raw Material Handler Address: Address: [address] [place] [address]- Name: Francisco Aaron RN Position: [facility] ED RN W/OE and Tasks Member Role: Patient Care Provider Name: Lilia Amaya Position: [facility] ED TA [facility] Member Role: Entry Level Installation Technician Care Team Related Persons Name: BRUNA LEONOR Address: [address] [place] [address] Name: REJI TAYLOR Address: home [address] [place] [address] Name: JEFF CHAPMAN Address: [id number] Address: [address] [address] [place] Name: ELI BONILLA Address: home [address] [address]
--- OUTSIDE RECORDS SUMMARY | 2022-07-06 18:45 | XMS_ITS | Continuity of Care Document ---
Author Name Unknown Organization [facility] Address [address] [place] [id number]- Care Team Providers Care Supervisor Assembly Name Role Phone Abdon Beard MD Primary Care Physician Encounter [facility] – [place] Date(s): 07/02/22 - 07/02/[address] [address]- Encounter Diagnosis Abdominal pain(Final) - 07/02/22 Gastroparesis(Final) - 07/02/22 Diabetes(Final) - 07/02/22 CHF (congestive heart failure)(Final) - 07/02/22 Pleural effusion(Final) - 07/02/22 Discharge Disposition: A-D/C Home Attending Physician: Alyssa Paz MD Admitting Physician: Alyssa Paz MD Referring Physician: Not on Staff, Referring [...] 06/23/22 9:43:00 EDT, Route to Pharmacy Electronically, [facility]/pharmacy #[id number], Partial fill upon patient request if the prescription is for a schedule II opioid drug.... Start Date: 06/23/22 Status: Ordered Aspirin Low Dose 81 mg oral delayed release tablet 1 tablet = 81 mg, By Mouth, Daily, Maintenance, 02/13/22 11:23:00 EST, CR Tablet, ; Start Date: 02/13/22 Status: Ordered Colace sodium 100 mg oral capsule 100 mg, 1, capsule, By Mouth, Daily, PRN, # 100 capsule, Refills 2, Tot. Refills 2, Maintenance, for constipation, 06/23/22 9:49:00 EDT, Route to Pharmacy Electronically, [facility] Start Date: 01/19/22 Status: Ordered Dilaudid Inj 1 mg, Injection, IV Push Slowly, Every 15 minutes for 3 doses/times, PRN for Pain , Moderate, and SBP greater than 100, STAT, 07/02/22 20:33:00 EDT, Stop date Limited # of times Start Date: 07/02/22 Status: Ordered ferrous fumarate 324 mg oral tablet 1 tablet = 324 mg, By Mouth, Daily, # 90 tablet, 0 Refills, Maintenance, 06/23/22 9:49:00 EDT, Tablet, [facility]/pharmacy #[id number], Partial fill upon patient request if the prescription is for a schedule II opioid drug., 167.64, cm, 06/23/22 8:42:00 EDT, Heigh... Start Date: 06/23/22 Status: Ordered Flonase 50 mcg/inh nasal spray 1 sprays, Nares, Both, 2 times a day, # 16 Gm, 0 Refills, Maintenance, 03/10/22 13:15:00 EST, [place], [facility], Partial fill upon patient request if the prescription is for a schedule II opioid drug., 1 sprays Nares, Both 2 times a day,... Start Date: 03/10/22 Status: Ordered hydrALAZINE 50 mg oral tablet 1 tablet = 50 mg, By Mouth, 3 times a day, # 90 tablet, 2 Refills, Maintenance, 06/23/22 9:42:00 EDT, Tablet, [facility] Weight Start Date: 03/10/22 Status: Ordered Pen [place], 31 G x 5 mm BD Ultra [...] each, 0 Refills, Maintenance, 03/10/22 13:17:00 EST, [facility], Partial fill upon patient request if the prescription is for a schedule II opioiddrug., 1 film Topically Every 72 hours, 170, cm, 01... Start Date: 03/10/22 Status: Ordered sodium bicarbonate 650 mg oral tablet 1 tablet = 650 mg, By Mouth, 3 times a day, # 100 tablet, 2 Refills, Maintenance, 06/23/22 9:43:00 EDT, Tablet, [facility]/pharmacy #[id number], Partial fill upon patient request if the prescription is for a schedule II opioid drug., 167.64, cm, 06/23/22 8:42:00 E... Start Date: 06/23/22 Status: Ordered torsemide 20 mg oral tablet 1 tablet = 20 mg, By Mouth, 2 times a day, # 30 tablet, 0 Refills, Maintenance, 03/10/22 13:14:00 EST, Tablet, [facility], Partial fill upon patient request [...] Active Migraine 5 Confirmed Active Care Coordination [facility], Hakan Angel, CC Confirmed Active 1Managed by PCP. WEll controlled. 2Self-manages. States currently stable. No medications. 3Not seem at [facility] since 08/12/2016. Multiple no show in our center. She is seen by other provider Dr Matt Gutierrez by pharmacy records. 4Managed by PCP 5Managed by PCP with Tylenol Results Radiology Reports * Exam Date Time Procedure Performing Provider Status 07/02/22 7:[address] Abd/Pelvis W/ IV Contrast Only María Armijo; Auth (Verified) Notes: (CT Abd/Pelvis W/ IV Contrast Only) Reason For Exam: LLQ abdominal pain;Other: RESULT: CT Abd/Pelvis W/ IV Contrast Only CT Abd/Pelvis W/ IV Contrast Only Hx of Present Illness: Abdominal pain it hurts where my appedix is ; Reason: Other:; LLQ abdominalpain; Clinical Question(s): Obstruction; Order Comment: TECHNIQUE: Spiral CT through the abdomen and pelvis with IV contrast formatted in 3 planes. 100 cc of Omnipaque 300 was administered intravenously. This study was performed without oral contrast. Weight-based protocol using automatic tube modulation was used to optimize exposure parameters. CTDIvol Body: 20.30 mGy, DLP Body: 1154 mGy*cm. COMPARISON: None. FINDINGS: Puller Over View Findings, Lines and Tubes: None. Visualized Chest: Bilateral pleural effusions, moderate on the right and small on the left. The heart is mildly enlarged. There is trace pericardial fluid. Diaphragm: Intact. Liver: Heterogeneous enhancement without discrete mass. Patent portal vein. Gallbladder: Postcholecystectomy. Bile ducts: No biliary ductal dilation. Spleen: Normal. Pancreas: Normal. Adrenal glands: Normal. Kidneys and ureters: No hydronephrosis, stones, or suspicious masses. Bladder: Circumferential bladder wall thickening suggesting cystitis. Correlate with urinalysis.. Reproductive organs: Unremarkable. Stomach, small bowel, and large bowel: Stomach and small bowel loops are nondistended. There is no evidence for bowel obstruction. There is mild retention of stool throughout the colon. No diverticulitis or colitis. Appendix: Normal. Peritoneum and retroperitoneum: Trace volume ascites in the pelvis possibly physiologic. No free air or abscess. No upper abdominal ascites. No omental or mesenteric lesions. Lymph nodes: No enlarged lymph nodes. Blood vessels: Normal. No aneurysm. No evidence of venous thrombosis. Abdominal and pelvic wall: Subcutaneous edema consistent with anasarca. Bones: No acute abnormality. Moderate disc space narrowing at L4-5. IMPRESSION: Mild cardiac enlargement and bilateral effusions consistent with CHF-fluid overload. Circumferential urinary bladder wall thickening consistent with cystitis. Mild retention of stool throughout the colon consistent with constipation. Subcutaneous edema throughout the flank and ventral abdominal wall compatible with anasarca.. WSN: [id number] Ordering Physician: Angely Weeks Dictated By: Mihai Coates MD Dictated Date/Time: 07/02/22 9:05 pm Reviewed By: Mihai Coates MD Signed By: Mihai Coates MD Signed Date/Time: 07/02/22 9:05 pm Transcribed By: ALEXIS Transcribed Date/Time: 07/02/22 9:01 pm Vital Signs Most recent to oldest [Reference Range]: 1 2 3 Oxygen Saturation [94-100 %] 95 % (07/02/22 8:16 PM) 100 % (07/02/22 6:24 PM) Pulse Rate [55-90 bpm] 100 bpm *H* (07/02/22 8:16 PM) 99 bpm *H* (07/02/22 6:24 PM) Blood Pressure [90-138/55-84 mm Hg] 189/110mm Hg *H* (07/02/22 8:16 PM) 173/117mm Hg *H* (07/02/22 6:24 PM) Respiratory Rate [16-30 br/min] 20 br/min (07/02/22 8:57 PM) 20 br/min (07/02/22 8:16 PM) 22 br/min (07/02/22 6:24 PM) Temperature [96.8-100.4 DegF] 97.9 DegF (07/02/22 8:16 PM) 97.8 DegF (07/02/22 6:24 PM) Mode of Delivery (Oxygen) Room air (07/02/22 8:16 PM) Room air (07/02/22 6:24 PM) Blood pressure sites Arm, left (07/02/22 8:16 PM) Arm, left (07/02/22 6:24 PM) Temperature Route Oral (07/02/22 8:16 PM) Oral (07/02/22 6:24 PM) Social History Social History Type Response Smoking Status Never (less than 100 in lifetime) entered on: 08/22/[address] Abdomen and Pelvis W contrast IV * [facility] , CIS S: TRANSCRIBE Mihai Coates MD: VERIFY Event Display: Result: Authored Date: [id number] CT Abd/Pelvis W/ IV Contrast Only Hx of Present Illness: Abdominal pain it hurts where my appedix is ; Reason: Other:; LLQ abdominalpain; Clinical Question(s): Obstruction; Order Comment: TECHNIQUE: Spiral CT through the abdomen and pelvis with IV contrast formatted in 3 planes. 100 cc of Omnipaque 300 was administered intravenously. This study was performed without oral contrast. Weight-based protocol using automatic tube modulation was used to optimize exposure parameters. CTDIvol Body: 20.30 mGy, DLP Body: 1154 mGy*cm. COMPARISON: None. FINDINGS: Puller Over View Findings, Lines and Tubes: None. Visualized Chest: Bilateral pleural effusions, moderate on the right and small on the left. The heart is mildly enlarged. There is trace pericardial fluid. Diaphragm: Intact. Liver: Heterogeneous enhancement without discrete mass. Patent portal vein. Gallbladder: Postcholecystectomy. Bile ducts: No biliary ductal dilation. Spleen: Normal. Pancreas: Normal. Adrenal glands: Normal. Kidneys and ureters: No hydronephrosis, stones, or suspicious masses. Bladder: Circumferential bladder wall thickening suggesting cystitis. Correlate with urinalysis.. Reproductive organs: Unremarkable. Stomach, small bowel, and large bowel: Stomach and small bowel loops are nondistended. There is no evidence for bowel obstruction. There is mild retention of stool throughout the colon. No diverticulitis or colitis. Appendix: Normal. Peritoneum and retroperitoneum: Trace volume ascites in the pelvis possibly physiologic. No free air or abscess. No upper abdominal ascites. No omental or mesenteric lesions. Lymph nodes: No enlarged lymph nodes. Blood vessels: Normal. No aneurysm. No evidence of venous thrombosis. Abdominal and pelvic wall: Subcutaneous edema consistent with anasarca. Bones: No acute abnormality. Moderate disc space narrowing at L4-5. IMPRESSION: Mild cardiac enlargement and bilateral effusions consistent with CHF-fluid overload. Circumferential urinary bladder wall thickening consistent with cystitis. Mild retention of stool throughout the colon consistent with constipation. Subcutaneous edema throughout the flank and ventral abdominal wall compatible with anasarca.. WSN: [id number] Ordering Physician: Angely Weeks Dictated By: Mihai Coates MD Dictated Date/Time: 07/02/22 9:05 pm Reviewed By: Mihai Coates MD Signed By: Mihai Coates MD Signed Date/Time: 07/02/22 9:05 pm Transcribed By: ALEXIS Transcribed Date/Time: 07/02/22 9:01 pm Patient Care team information Care Team Personnel Name: Cheryle Warren RN Position: [facility] RN Member Role: Primary Care Nurse Name: Elizabeth Cabezas Position: [facility] RN Member Role: Primary Care Nurse Name: Anuradha Morris RN Position: [facility] RN Member Role: Primary Care Nurse Name: Samantha Reynolds RN Position: [facility] RN Member Role: Primary Care Nurse Name: Omega Gillespie RN Position: [facility] RN Member Role: Primary Care Nurse Name: Doreen Estrada RN Position: [facility] RN Member Role: Primary Care Nurse Name: Paty Kelly RN Position: [facility] RN Member Role: Primary Care Nurse Name: Sonia Malone Position: [facility] RN Member Role: Primary Care Nurse Name: Keira Desai RN Position: [facility] RN Member Role: Primary Care Nurse Name: Gomez Moseley RN Position: [facility] RN Supv Member Role: Primary Care Nurse Name: Vashti Bruce RN Position: [facility] RN Member Role: Primary Care Nurse Name: Raghav Granger Position: [facility] RN Member Role: Primary Care Nurse Name: Cassy Caraballo RN Position: [facility] RN Member Role: Primary Care Nurse Name: Jodi Carrillo RN Position: [facility] RN Member Role: Primary Care Nurse Name: Abbey Shelley RN Position: [facility] RN Member Role: Primary Care Nurse Name: Larissa Barnett RN Position: [facility] RN Member Role: Primary Care Nurse Name: Inna Beckwith RN Position: [facility] RN Member Role: Primary Care Nurse Name: Cady Araya RN Position: [facility] RN Member Role: Primary Care Nurse Name: Abdon Beard MD Position: [facility] Outreach Member Role: PCP Address: Address: [address] [place] [address]- Name: Anuradha Frank Position: [facility] RN Member Role: Primary Care Nurse Name: Renetta Correia RN Position: [facility] RN Member Role: Primary Care Nurse Name: Michele Blancas DO Position: [facility] Renal MD Member Role: Lifetime Consulting Physician Address: Address: [address] [place], [place] [address] [place] [place] [address]- [place] Name: María Acosta RN Position: [facility] RN Member Role: Primary Care Nurse Name: Treasure Gilbert RN Position: [facility] RN Supv Member Role: Primary Care Nurse Name: Farzana Sevilla Position: [facility] RN Member Role: Primary Care Nurse Name: Javan Pimentel MD Position: [facility] Renal MD Member Role: Lifetime Consulting Physician Address: Address: [address] [place] [address] [address] [facility] [place] [address]- Name: Heather Pal RN Position: [facility] RN Member Role: Primary Care Nurse Name: Jody Rasmussen RN Position: [facility] RN Member Role: Primary Care Nurse Name: Luisa Devine RN Position: [facility] RN Member Role: Primary Care Nurse Name: Mau Hazel RN Position: [facility] RN Member Role: Primary Care Nurse Name: Pedro Taylor RN Position: [facility] RN Member Role: Primary Care Nurse Name: Charlotte Singletary RN Position: [facility] OB RN Member Role: Primary Care Nurse Name: Alison Jose RN Position: [facility] RN Member Role: Primary Care Nurse Name: Kendall Coleman RN Position: [facility] RN Member Role: Primary Care Nurse Name: Nancy Fair RN Position: [facility] SN RN Member Role: Primary Care Nurse Name: Sofie Reed Position: [facility] RN Member Role: Primary Care Nurse Name: Kasia Vital RN Position: [facility] RN Member Role: Primary Care Nurse Name: Fernando Siddiqi MD Position: [facility] Renal MD Member Role: Lifetime Consulting Physician Address: Address: [address] [place] [address] [facility] [place] [address]- Name: Kaelyn Lewis RN Position: [facility] RN Member Role: Primary Care Nurse Name: Lianne Byrnes RN Position: [facility] RN Member Role: Primary Care Nurse Name: Tona Jacome LPN Position: [facility] RN Member Role: Primary Care Nurse Name: Tatiana Madrigal RN Position: [facility] RN Member Role: Primary Care Nurse Name: Ashely Riley RN Position: [facility] RN Member Role: Primary Care Nurse Name: Magaly Dick Position: [facility] ED RN W/OE and Tasks Member Role: Patient Care Provider Name: Anuradha Lopez Position: [facility] ED RN W/OE and Tasks Member Role: Patient Care Provider Name: Alyssa Paz MD Position: [facility] ED Medicine MD Member Role: Admitting Physician Address: Address: [address] [place] [address]- Name: Shaheen Angi Position: [facility] ED TA [facility] Name: Angely Weeks DO Position: [facility] Resident Member Role: ED Resident Address: Address: [address] [place] [address]- Name: Lyly Ferrell Position: [facility] ED TA [facility] Member Role: Clinical Laboratory Technician Care Team Related Persons Name: MCFARLANDADI BUSTAMANTEO Address: home [address] [place] [address] Name: REJI TAYLOR Address: home [address] [place] [address] Name: JEFF CHAPMAN Address: [address] Address: home [address] [address] Name: ELI BONILLA Address: home [address] [address]
[2022-07-06] MEDS: Furosemide 100 MG/10 ML VIAL 80 MG IVPUSH (19:11)
[2022-07-06 19:47] LABS: Lactic Acid 0.8 mmol/L (0.5-2.0)
[2022-07-06] MEDS: Enoxaparin Sodium 100 MG/ML SYRINGE 90 MG SUBCUT (19:57)
[2022-07-06] MEDS: Nitroglycerin 2 % Oint 1 GM Packet 1 INCH TRANSDERMA (19:58)
[2022-07-06] MEDS: fentaNYL citrate/PF 100 MCG/2 ML VIAL 25 MCG IVPUSH (20:00)
[2022-07-06 20:03] LABS: INTERNATIONAL NORM RATIO 1.1 (0.9-1.1)
[2022-07-06 20:05] LABS: Partial Thromboplastin Time 30.6 SEC (26.0-36.4)
--- NOTE | 2022-07-06 20:08 | PC.NURSE ---
Patient alert and oriented x3. BP 184-200/102-120. Administered medication as per MAR. Will continue to follow plan of care
--- NOTE | 2022-07-06 20:09 | P.HPHOSP_ITS ---
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 Patient states it has been ongoing for the last 2-3 days.? States she feels like there is fluid in her lungs and has dyspnea worse with ambulation.?Endorses orthopnea.?Patient also started having right lower extremity pain about 2-3 days prior to presentation. Right upper extremity swelling was noted by fiance which prompted ER visit. Patient states that she does have headaches every time her blood pressure is elevated although she states she is compliant with her home antihypertensives. Denies fever, chills, cough, palpitations, chest discomfort, abdominal pain, changes in urinary or bowel habits. In the emergency department, patient's blood pressure was found to be elevated and she was given IV labetalol and IV Lasix Review of Systems Constitutional: Constitutional: Reports no additional constitutional complaints Cardiovascular: Cardiovascular: Reports dyspnea on exertion and Reports orthopnea Respiratory: Respiratory: Reports dyspnea on exertion Gastrointestinal: Gastrointestinal: Reports no additional gastrointestinal complaints Genitourinary: Genitourinary: Reports no additional female genitourinary complaints [facility] Medical History Abnormal finding on echocardiogram Acute dyspnea Acute worsening of stage 3 chronic kidney disease MYNOR (acute kidney injury) Anemia Anemia in chronic kidney disease (CKD) Asthma Back pain Blind right eye Bone infection Cellulitis Cellulitis and abscess of foot delivery delivered Chest pain CHF (congestive heart failure) (~06/07/22) CKD (chronic kidney disease) CKD (chronic kidney disease) Depression with anxiety Diabetes Diabetic retinopathy DM foot ulcer Elevated troponin Essential hypertension Fever Generalized edema HTN (hypertension) Hypertension (~06/10/22) Migraine Osteomyelitis PAD (peripheral artery disease) Pleural effusion test positive test positive Sepsis Severe anemia Tachycardia Type 2 diabetes mellitus with hyperglycemia, with long-term current use of insulin Family History Mother Coronary artery disease Myocardial infarction Stroke Diabetes mellitus Father Myocardial infarction Surgical History History of transmetatarsal amputation of foot S/P transmetatarsal amputation of foot Social History Household Members: Significant Other Household Members Other:: Sister, Pyrefij-an-Paz, nephew Housing: Apartment Do you presently have visiting nurse or other home services: No Alcohol intake: never Patient Tobacco Use Status: Never used Tobacco Smoked in Last 30 Days: No e-Cigarette/Vaping Use: Never Used Second Hand Smoke Exposure: No Use of substances other than those prescribed or required for medical reasons: No Advance Directives: No Advance Directives Information Provided: No Advance Directives Date on File: 03/08/20 service: No Current occupational status: disabled Gender identity: Female Meds Allergies Allergy/AdvReac Type Severity Reaction Status Date / Time morphine [MORPHINE] Allergy Intermediate Itching Verified 07/06/22 16:17 azithromycin [From Zithromax] Allergy Hives Verified 07/06/22 16:17 gabapentin Allergy Facial Verified 07/06/22 16:17 Swelling tramadol Allergy Facial Verified 07/06/22 16:17 Swelling vancomycin Allergy Hives Verified 07/06/22 16:17 Active Medications: Current Medications Enoxaparin Sodium (Enoxaparin Sodium 100 Mg/Ml Syringe) 90 mg SUBCUT DAILY [facility] Pharmacy Consult (Consult Rx Perform Med Rec) 1 each MISCELLANE ONCE PRN PRN Reason: Consult order Home Medications Medication Instructions Recorded Confirmed Last Taken Type acetaminophen 325 mg tablet 650 mg PO Q4H PRN Pain 04/01/22 07/06/22 Unknown History aspirin 81 mg tablet,delayed 1 tab PO DAILY 04/01/22 07/06/22 2 Days Ago History release ~04/20/22 pantoprazole 40 mg tablet,delayed 1 tab PO DAILY@0630 04/01/22 07/06/22 2 Days Ago History release ~04/20/22 insulin aspart U-100 100 unit/mL 2 - 10 unit subcut TID 05/10/22 07/06/22 Unk nown History (3 mL) subcutaneous pen (Novolog FlexPen U-100 Insulin aspart) insulin detemir U-100 100 unit/mL 8 unit subcut BEDTIME 05/10/22 07/06/22 Unknown History (3 mL) subcutaneous pen (Levemir FlexTouch U-100 Insulin) hydralazine 50 mg tablet 50 mg PO BID 06/07/22 07/06/22 Unknown History nifedipine 30 mg tablet,extended 30 mg PO DAILY 06/07/22 07/06/22 Unknown History release 24 hr oxycodone 5 mg tablet 5 mg PO Q6H PRN severe pain 06/07/22 07/06/22 Unknown History docusate sodium 100 mg capsule 100 mg PO DAILY PRN constipation 07/06/22 07/06/22 Unknown History ferrous fumarate 324 mg (106 mg 324 mg PO DAILY 07/06/22 07/06/22 Unknown History iron) tablet (Ferrocite) Physical Exam Vital Signs and Narrative: Vital Signs: Last Vital Signs Temp 98.9 F 07/06/22 17:30 Pulse 96 07/06/22 20:04 Resp 18 07/06/22 20:04 BP 200/120 H 07/06/22 20:04 Pulse Ox 97 07/06/22 20:04 O2 Del Method Room Air 07/06/22 20:04 BMI result Body Mass Index 30.7 Middle-aged female lying in bed in mild distress Neck supple Regular rate and rhythm, S1-S2 heard Bilateral crackles without wheezing Abdomen soft nontender, no guarding, no rigidity Patient is awake, alert and oriented to self, place, time and person ; no focal motor deficit Psych: Normal mood Right lower extremity swelling and tenderness + ; b/l pitting edema + Results Labs 07/06/22 17:34 07/06/22 17:34 Labs: Laboratory Results - last 24 hr 07/06/22 07/06/22 07/06/22 17:29 17:34 17:34 MCV 82.0 MCH 25.6 L MCHC 31.2 RDW 17.2 H Plt Count 220 MPV 11.7 Immature Gran % (Auto) 0.3 Neut % (Auto) 78.6 H Lymph % (Auto) 11.9 L [place] % (Auto) 6.1 Eos % (Auto) 2.4 Baso % (Auto) 0.7 Lymph # (Auto) 0.7 L [place] # (Auto) 0.4 Eos # (Auto) 0.1 Baso # (Auto) 0.0 Abs Immat Gran (auto) 0.02 Absolute Neuts (auto) 4.6 Absolute Nucleated RBC 0.000 Nucleated RBC % (auto) 0.0 D-Dimer High Sensitivty 977 POC Glucose 110 Lactic Acid B-Natriuretic Peptide 07/06/22 07/06/22 17:34 19:27 MCV MCH MCHC RDW Plt Count MPV Immature Gran % (Auto) Neut % (Auto) Lymph % (Auto) Yuba % (Auto) Eos % (Auto) Baso % (Auto) Lymph # (Auto) [place] # (Auto) Eos # (Auto) Baso # (Auto) Abs Immat Gran (auto) Absolute Neuts (auto) Absolute Nucleated RBC Nucleated RBC % (auto) D-Dimer High Sensitivty POC Glucose Lactic Acid 0.8 B-Natriuretic Peptide 2883 H Imaging Radiologist's Impressions: Impressions Venous Duplex 07/06/22 16:34 IMPRESSION: Possible nonocclusive thrombus in the right posterior tibial vein. Duplex Scan Lower Extremity Artery 07/06/22 16:41 IMPRESSION: No hemodynamically significant stenosis in the right lower extremity. Tibia/Fibula X-Ray 07/06/22 18:30 IMPRESSION: Diffuse soft tissue swelling. No fracture or malalignment. Assessment and Plan (1) Hypertensive emergency: Status: Acute Plan This is a 31-year-old female with pertinent history of essential hypertension, congestive heart failure with reduced ejection fraction, insulin-dependent type 2 diabetes mellitus with diabetic retinopathy, mood disorder, PAD status post transmetatarsal amputation of foot, CKD stage 4 who presents to the emergency department for evaluation of headache, shortness of breath and leg swelling.? #.? Hypertensive emergency: Given IV labetalol and ordered nitropaste in the ER.? Continue home antihypertensives.? Trend and optimize. #.? Acute (mild) on chronic congestive heart failure with reduced ejection fraction:?due to elevated blood pressure.? Will admit patient and initiate IV Lasix.? Noted recent echocardiogram.? Patient on beta-mohamud.? Strict I's and O's and low-salt diet. Transition to po diuretics once euvolemia achieved #. Acute right posterior tibial DVT: Initiating therapeutic Lovenox. #.? Insulin-dependent diabetes mellitus:? Initiating Accu-Cheks with sliding scale insulin #.? CKD stage 4: Monitor creatinine and urine output with IV diuresis.? Avoid nephrotoxins #.? Chronic normocytic anemia Med rec pending DVT prophylaxis:? Lovenox 90 mg daily Full code Low-salt diet Time Spent With Patient Time: Total time managing care of this patient today ____ minutes. Quality Stroke Does the patient have a stroke diagnosis?: No VTE Prior VTE?: No VTE Risk Level:: Medical - moderate - high VTE Device Contraindication: Treatment Not Indicated VTE Drug Contraindication: N/A - Med Ordered
[2022-07-06 20:18] LABS: Acetone, serum QL Negative (Negative)
[2022-07-06 20:29] LABS: Alanine Aminotransferase 15 U/L (0-31); Alkaline Phosphatase 93 U/L (39-117); Anion Gap 13 (12-20); Aspartate Amino Transferase 13 U/L (5-31); Blood Urea Nitrogen 43 mg/dL (9-16); Calcium 8.1 mg/dL (8.4-10.2); Carbon Dioxide 16 mmol/L (22-29); Chloride 114 mmol/L (96-108); Creatinine Clr Calc Pharmacy 26.6; Estimated Glomerular Filt Rate 16; Glucose Random 130 mg/dL (60-115); Magnesium 2.1 mg/dL (1.6-2.6); Potassium 4.2 mmol/L (3.3-5.1); Sodium 139 mmol/L (135-145); Total Protein 6.3 g/dL (6.5-8.0)
[2022-07-06 20:30] LABS: HCG Quantitative < 2 mIU/mL
--- NOTE | 2022-07-06 20:46 | PHA.MEDREC ---
Pharmacy Consult ? Medication Reconciliation Pharmacy has completed the medication reconciliation. Patient states they dont know their meds but nothing has changed since she was here last. When questioning her claim history, patient stated REITERATED she does not know what she takes nor is she adherent. Says she is in pain Rickie
[2022-07-06 21:01] LABS: Glucose, Whole Blood 125 mg/dL (60-115)
[2022-07-06 21:04] LABS: Appearance Urine Clear; Color Urine Yellow; Glucose Urine UA 250 mg/dL (Negative); Leukocyte Esterase Urine Negative (Negative); Nitrite Urine Negative (Negative); Specific Gravity - Urine 1.015 (1.005-1.025); UMIC TRIGGER UACC YES; Urine Blood Trace (Negative); Urine Ketones Negative (Negative); Urine Protein >=1000 (4+) mg/dL (Neg-Trace)
[2022-07-06] MEDS: HYDROmorphone HCl 1 MG/ML SYRINGE IVPUSH (21:10)
[2022-07-06] MEDS: hydrALAZINE HCl 50 MG TABLET PO (21:10)
[2022-07-06] MEDS: carvediloL 6.25 MG TABLET PO (21:10)
[2022-07-06 21:14] LABS: Amphetamine Screen Urine Not Detected (Not Detect); Bacteria Urine 4+ (None Seen); Barbiturates, Urine Not Detected (Not Detect); Benzodiazepines Screen Urine Not Detected (Not Detect); Cannabinoid Screen Urine Not Detected (Not Detect); Cocaine Screen Urine Not Detected (Not Detect); Fentanyl, urine Not Detected (Not Detect); Hyaline Casts Urine 0-2 /LPF (0-2); Opiate Screen Urine Not Detected (Not Detect); Phencyclidine Screen Urine Not Detected (Not Detect); Squamous Epithelial Cell Urine 0-2 /HPF (0-2); WBC Urine 0-5 /HPF (0-5)
--- NOTE | 2022-07-06 21:19 | PC.NURSE ---
Patient alert and oriented x3. Reports 12/05 pain. Administered medications as per APR. Vitals taken BP remains elevated 189/115 Dr. Sewell made notified. MD indicated nitro paste needs to be removed once blood pressure systolic reach 160. Call moore within reach. Will continue to follow plan of care
--- NOTE | 2022-07-06 22:30 | PC.NURSE ---
Nurse to nurse reports given to KIRIT Fisher. Patient being transported to [place] [address] by windy
[2022-07-07] VITALS (7 sets, daily range): BP systolic 132–184; BP diastolic 88–101; PULSE 84–89; RESP 17–20; TEMP 36.1–36.7; O2SAT 97–100
[2022-07-07] MEDS: HYDROmorphone HCl 0.5 MG/0.5 ML SYRINGE IVPUSH ×4 (00:51→21:06)
[2022-07-07] MEDS: Labetalol HCL 100 MG/20 ML VIAL 10 MG IVPUSH (00:52)
[2022-07-07] MEDS: 0.9 % Sodium Chloride Flush 3 ML SYRINGE IVFLUSH ×4 (00:52→21:08)
--- NOTE | 2022-07-07 01:29 | PC.NURSE ---
0030; bp elevated 186/107, hr 87, rechecked manual bp 180/110. Patient also complaining of right leg/foot pain, rating it 10/10. Dr. Sewell notified. Orders for dilaudid 0.5mg, labetolol 10 mg. Bp rechecked at 0120 162/89, hr 88. Patient reports pain level decreased, resting comfortably.
[2022-07-07] MEDS: ondansetron HCL 4 MG/2 ML VIAL IVPUSH (03:51)
[2022-07-07 06:27] LABS: MANUAL DIFF FLAG NO
[2022-07-07 06:38] LABS: Basophils Percent Auto 0.7 % (0-2); Eosinophils Absolute Auto 0.1 X10*3/uL (0.0-0.4); Eosinophils Percent Auto 1.9 % (0-4); Hematocrit 24.7 % (37.0-47.0); Hemoglobin 7.5 g/dl (12.0-16.0); Imm Gran Abs Auto 0.01 X10*3/uL (0.00-0.03); Imm Gran Pct Auto 0.2 % (0.0-0.4); Lymphocytes Absolute Auto 0.7 X10*3/uL (1.2-4.9); Lymphocytes Percent Auto 15.7 % (20-40); Mean Corpuscular HGB Conc 30.4 g/dl (31.0-35.0); Mean Corpuscular Hemoglobin 25.8 pg (27.0-33.0); Mean Corpuscular Volume 84.9 fL (80.0-98.0); Mean Platelet Volume 12.4 fL (9.4-12.3); Monocytes Absolute Auto 0.3 X10*3/uL (0.1-1.2); Monocytes Percent Auto 6.3 % (2-11); Neutrophils Absolute Auto 3.1 x10*3/uL (2.0-8.3); Neutrophils Percent Auto 75.2 % (45-73); Platelet Count 184 X10*3/uL (160-400); Red Blood Count 2.91 X10*6/uL (4.20-5.50); Red Cell Distribution Width 17.2 % (11.0-16.0); White Blood Count 4.1 X10*3/uL (4.8-10.8)
[2022-07-07 06:58] LABS: Anion Gap 13 (12-20); Blood Urea Nitrogen 42 mg/dL (9-16); Carbon Dioxide 19 mmol/L (22-29); Chloride 111 mmol/L (96-108); Creatinine Clr Calc Pharmacy 25.6; Estimated Glomerular Filt Rate 15; Glucose Random 100 mg/dL (60-115); Potassium 4.1 mmol/L (3.3-5.1); Sodium 139 mmol/L (135-145)
[2022-07-07 07:05] LABS: Glucose, Whole Blood 96 mg/dL (60-115)
[2022-07-07] MEDS: Ferrous Sulfate 324 MG TABLET.DR PO (08:23)
[2022-07-07] MEDS: hydrALAZINE HCl 50 MG TABLET PO (08:23)
[2022-07-07] MEDS: Sodium Bicarbonate 650 MG TABLET PO ×2 (08:23→21:14)
[2022-07-07] MEDS: Isosorbide Mononitrate 30 MG TAB.ER.24H PO (08:23)
[2022-07-07] MEDS: Aspirin Enteric Coated 81 MG TABLET.DR PO (08:23)
[2022-07-07] MEDS: Apixaban 5 MG TABLET 10 MG PO ×2 (08:23→21:05)
[2022-07-07] MEDS: NIFEdipine ER 30 MG TAB.ER.24 PO (08:23)
[2022-07-07] MEDS: carvediloL 3.125 MG TABLET 6.5 MG PO (08:23)
[2022-07-07] MEDS: Furosemide 40 MG/4 ML VIAL 80 MG IVPUSH ×2 (08:26→17:15)
--- NOTE | 2022-07-07 08:41 | MHC.CM.PN ---
CM met with Patient at bedside and addressed STEPHENS with her verbally (Patient states that she is blind). The original STEPHENS was left art bedside and a copy has been placed on the chart. Patient lives in an apartment with her Fiance and she uses a w/c for mobility. Patient receives [employer] hours/week and home/resume said services is the goal.CM has initiated and will follow for dc planning. Patient has received Moderna/Covid vax x2 and her PCP is Dr. Welsh.
--- NOTE | 2022-07-07 09:17 | MHC.CM.PN ---
Patient has been switched from OBSERVATION to INPATIENT; IMM addressed with Patient.
--- NOTE | 2022-07-07 10:05 | PM.CNCAR ---
History of Present Illness History of Present Illness Date of Service: 07/07/22 Chief complaint: headache Narrative: This is a cardiology consultation regarding congestive heart failure. Patient has a history of poorly controlled hypertension, heart failure with reduced ejection fraction, diabetes mellitus diabetic retinopathy, P 80 status post transmetatarsal amputation, CKD presenting for evaluation of headache, shortness of breath and leg swelling. She is again admitted with uncontrolled hypertension with precipitation of congestive heart failure. When I see her today, she states that she is in no lot of pain everywhere but mainly in her feet. Hence she is somewhat morning. Otherwise, her breathing itself is somewhat improved. She does not have any anginal-type symptoms at this time. No palpitations or other concerns. She states that she mainly goes to [facility] for most of her care. Review of Systems Review of Systems: Yes all other systems are reviewed and are negative Constitutional: Constitutional: Reports as per HPI and Reports no additional constitutional complaints Eyes: Eyes: Reports as per HPI and Denies no additional eye complaints ENT: Denies system reviewed and no additional complaints, except as documented and Reports as per HPI Cardiovascular: Cardiovascular: Reports as per HPI, Reports no additional cardiovascular complaints, Denies acrocyanosis, Denies cool extremities, Denies chest pain, Denies leg edema, Denies lightheadedness, Denies palpitations and Reports dyspnea Respiratory: Respiratory: Reports as per HPI, Denies no additional respiratory complaints and Reports dyspnea Gastrointestinal: Gastrointestinal: Reports as per HPI and Denies no additional gastrointestinal complaints Genitourinary: Genitourinary: Reports as per HPI Musculoskeletal: Musculoskeletal: Reports no additional musculoskeletal complaints and Reports as per HPI Integumentary/Breasts: Skin/Breast: Reports system reviewed and no additional complaints, except as docu Neurologic: Reports system reviewed and no additional complaints, except as documented and Reports as per HPI Psychiatric: Psychiatric: Reports no additional psychiatric complaints and Reports as per HPI Endocrine: Endocrine: Reports no additional endocrine complaints, Reports as per HPI and Denies palpitations Hematologic/Lymphatic: Hematologic/Lymphatic: Reports no additional hematologic/lymphatic complaints and Reports as per HPI Allergic/Immunologic: Allergic/Immunologic: Reports no additional allergic/immunologic complaints and Reports as per HPI [facility] Past Medical History Medical History Abnormal finding on echocardiogram Acute dyspnea Acute worsening of stage 3 chronic kidney disease MYNOR (acute kidney injury) Anemia Anemia in chronic kidney disease (CKD) Asthma Back pain Blind right eye Bone infection Cellulitis Cellulitis and abscess of foot delivery delivered Chest pain CHF (congestive heart failure) (~06/07/22) CKD (chronic kidney disease) CKD (chronic kidney disease) Depression with anxiety Diabetes Diabetic retinopathy DM foot ulcer Elevated troponin Essential hypertension Fever Generalized edema HTN (hypertension) Hypertension (~06/10/22) Migraine Osteomyelitis PAD (peripheral artery disease) Pleural effusion test positive test positive Sepsis Severe anemia Tachycardia Type 2 diabetes mellitus with hyperglycemia, with long-term current use of insulin Family History Family History Mother Coronary artery disease Myocardial infarction Stroke Diabetes mellitus Father Myocardial infarction Surgical History Surgical History History of transmetatarsal amputation of foot S/P transmetatarsal amputation of foot Social History Social History Household Members: Significant Other Household Members Other:: Sister, [id number], nephew Housing: Apartment Do you presently have visiting nurse or other home services: Yes (services) Alcohol intake: never Patient Tobacco Use Status: Never used Tobacco Smoked in Last 30 Days: No e-Cigarette/Vaping Use: Never Used Patient Interested in Nicotine Replacement: No Patient Given Instructions on How to Stop Smoking: No Second Hand Smoke Exposure: No Use of substances other than those prescribed or required for medical reasons: No Currently Displaying Signs/Symptoms of Drug Intoxication Withdrawal: No Any prior treatment program specific to substance use: No Have you been hit, kicked, punched, or otherwise hurt by someone within the past year? If so, by whom?: No Do you feel safe in your current relationship?: Yes Is there a partner from a previous relationship who is making you feel unsafe now?: No Advance Directives: No Advance Directives Information Provided: No Advance Directives Date on File: 03/08/20 Do you have thoughts of harming others: None Do you have a plan to hurt others: No Plan Recently lost weight without trying: No Eating poorly because of decreased appetite: No Nutrition Risks: No Nutritional Risk Patient : No : No Poor oral hygiene: No service: No Current occupational status: disabled Gender identity: Female Meds Allergies Allergy/AdvReac Type Severity Reaction Status Date / Time morphine [MORPHINE] Allergy Intermediate Itching Verified 07/06/22 16:17 azithromycin [From Zithromax] Allergy Hives Verified 07/06/22 16:17 gabapentin Allergy Facial Verified 07/06/22 16:17 Swelling tramadol Allergy Facial Verified 07/06/22 16:17 Swelling vancomycin Allergy Hives Verified 07/06/22 16:17 Active Medications: Current Medications Acetaminophen (Acetaminophen 325 Mg Tablet) 650 mg PO Q6H PRN PRN Reason: Pain, Mild (Pain Scale 1-3) Apixaban (Apixaban 5 Mg Tablet) 10 mg PO BID [facility] Stop: 07/13/22 21:01 Last Admin: 07/07/22 08:23 Dose: 10 mg Aspirin (Aspirin Enteric Coated 81 Mg Tablet.) 81 mg PO DAILY [facility] Last Admin: 07/07/22 08:23 Dose: 81 mg Carvedilol (Carvedilol 3.125 Mg Tablet) 6.5 mg PO BID [facility]; Protocol Last Admin: 07/07/22 08:23 Dose: 6.5 mg Ferrous Sulfate (Ferrous Sulfate 324 Mg Tablet.) 324 mg PO DAILY [facility] Last Admin: 07/07/22 08:23 Dose: 324 mg Furosemide (Furosemide 40 Mg/4 Ml Vial) 80 mg IVPUSH BID@0900,1800 [facility]; Protocol Last Admin: 07/07/22 08:26 Dose: 80 mg Glucose (Glucose Gel 15 Gm Gel..Gram.) 15 gm PO Q15M PRN; Protocol PRN Reason: per Hypoglycemia Standing Ord. Hydralazine HCl (Hydralazine Hcl 50 Mg Tablet) 50 mg PO BID [facility]; Protocol Last Admin: 07/07/22 08:23 Dose: 50 mg Hydromorphone HCl (Hydromorphone Hcl 0.5 Mg/0.5 Ml Syringe) 0.5 mg IVPUSH Q4H PRN; Protocol PRN Reason: severe pain Dextrose (D10) 250 mls @ 750 mls/hr IV Q15M PRN; Protocol PRN Reason: per Hypoglycemia Standing Ord. Insulin Human Lispro (Insulin Lispro 100 Unit/Ml 3 Ml Vial) 0 unit SUBCUT QIDACHS [facility]; Protocol Last Admin: 07/07/22 07:13 Dose: Not Given Isosorbide Mononitrate (Isosorbide Mononitrate 30 Mg Tab.Er.24h) 30 mg PO DAILY [facility]; Protocol Last Admin: 07/07/22 08:23 Dose: 30 mg Melatonin (Melatonin 3 Mg Tablet) 6 mg PO BEDTIME PRN PRN Reason: Insomnia Nifedipine (Nifedipine Er 30 Mg Tab.Er.24) 30 mg PO DAILY [facility]; Protocol Last Admin: 07/07/22 08:23 Dose: 30 mg Omeprazole (Omeprazole 20 Mg Capsule.Dr) 20 mg PO DAILY@629 [facility] Ondansetron HCl (Ondansetron Hcl 4 Mg/2 Ml Vial) 4 mg IVPUSH Q8H PRN PRN Reason: Nausea and Vomiting Last Admin: 07/07/22 03:51 Dose: 4 mg Oxycodone HCl (Oxycodone Hcl Immed Release 5 Mg Tablet) 5 mg PO Q6H PRN PRN Reason: Pain, Moderate(Pain Scale 4-6) Oxycodone HCl (Oxycodone Hcl Immed Release 5 Mg Tablet) 5 mg PO Q6H PRN PRN Reason: severe pain Pharmacy Consult (Consult Rx Perform Med Rec) 1 each MISCELLANE ONCE PRN PRN Reason: Consult order Sodium Bicarbonate (Sodium Bicarbonate 650 Mg Tablet) 650 mg PO BID [facility] Last Admin: 07/07/22 08:23 Dose: 650 mg Sodium Chloride (0.9 % Sodium Chloride Flush 3 Ml Syringe) 3 ml IVFLUSH QSHIFT [facility] Last Admin: 07/07/22 08:23 Dose: 3 ml Home Medications Medication Instructions Recorded Confirmed Last Taken Type acetaminophen 325 mg tablet 650 mg PO Q4H PRN Pain 04/01/22 07/06/22 Unknown History aspirin 81 mg tablet,delayed 1 tab PO DAILY 04/01/22 07/06/22 2 Days Ago History release ~04/20/22 pantoprazole 40 mg tablet,delayed 1 tab PO DAILY@0630 04/01/22 07/06/22 2 Days Ago History release ~04/20/22 insulin aspart U-100 100 unit/mL 2 - 10 unit subcut TID 05/10/22 07/06/22 Unknown History (3 mL) subcutaneous pen (Novolog FlexPen U-100 Insulin aspart) insulin detemir U-100 100 unit/mL 8 unit subcut BEDTIME 05/10/22 07/06/22 Unknown History (3 mL) subcutaneous pen (Levemir FlexTouch U-100 Insulin) hydralazine 50 mg tablet 50 mg PO BID 06/07/22 07/06/22 Unknown History nifedipine 30 mg tablet,extended 30 mg PO DAILY 06/07/22 07/06/22 Unknown History release 24 hr oxycodone 5 mg tablet 5 mg PO Q6H PRN severe pain 06/07/22 07/06/22 Unknown History docusate sodium 100 mg capsule 100 mg PO DAILY PRN constipation 07/06/22 07/06/22 Unknown History ferrous fumarate 324 mg (106 mg 324 mg PO DAILY 07/06/22 07/06/22 Unknown History iron) tablet (Ferrocite) Physical Exam Vital Signs: Vital Signs: Last Vital Signs Temp 97.3 F 07/07/22 07:21 Pulse 89 07/07/22 07:21 Resp 18 07/07/22 07:21 BP 178/89 H 07/07/22 07:21 Pulse Ox 97 07/07/22 07:21 O2 Del Method Room Air 07/07/22 07:21 BMI result Body Mass Index 30.7 Const: General: comfortable and no acute distress Orientation/consciousness: patient oriented x3 HEENT: Other: Unremarkable Head: Yes normal to inspection Neck: Neck: Yes normal visual inspection Chest: Chest palpation & inspection: normal inspection of the chest Resp: Auscultation: clear to auscultation bilaterally Cardio: Palpation: normal PMI Heart sounds: S1 normal heart sound present, S2 normal heart sound present, Gallop heart sound present S4 gallop, no murmurs and no rubs GI: Palpation (GI): Soft to palpation Back/Spine/Pelvis: Other: unremarkable Skin: General skin exam: no rashes or lesions noted Neuro: General: patient oriented x3 Extrem: Other: partial feet amputation. Psych: Mental Status: mental status grossly normal Objective Labs and Meds 07/07/22 06:20 07/07/22 06:20 Lab results: Laboratory Results - last 24 hr 07/06/22 07/06/22 07/06/22 17:29 17:34 17:34 WBC 5.9 RBC 3.44 L Hgb 8.8 L Hct 28.2 L MCV 82.0 MCH 25.6 L MCHC 31.2 RDW 17.2 H Plt Count 220 MPV 11.7 Immature Gran % (Auto) 0.3 Neut % (Auto) 78.6 H Lymph % (Auto) 11.9 L [place] % (Auto) 6.1 Eos % (Auto) 2.4 Baso % (Auto) 0.7 Lymph # (Auto) 0.7 L [place] # (Auto) 0.4 Eos # (Auto) 0.1 Baso # (Auto) 0.0 Abs Immat Gran (auto) 0.02 Absolute Neuts (auto) 4.6 Absolute Nucleated RBC 0.000 Nucleated RBC % (auto) 0.0 PT 13.0 INR 1.1 APTT 30.6 D-Dimer High Sensitivty 977 Sodium Potassium Chloride Carbon Dioxide Anion Gap BUN Creatinine Estim Creat Clear Calc Estimated GFR POC Glucose 110 Random Glucose Lactic Acid Calcium Magnesium Total Bilirubin AST ALT Alkaline Phosphatase B-Natriuretic Peptide Total Protein Albumin Beta HCG, Quant Urine Color Urine Appearance Urine pH Ur Specific [place] Urine Protein Urine Glucose (UA) Urine Ketones Urine Blood Urine Nitrite Ur Leukocyte Esterase Urine RBC Urine WBC Ur Squamous Epith Cells Urine Bacteria Hyaline Casts Urine Opiates Screen Urine Fentanyl Screen Ur Barbiturates Screen Ur Phencyclidine Scrn Ur Amphetamines Screen U Benzodiazepines Scrn Urine Cocaine Screen U Marijuana (THC) Screen Acetone, Qual 07/06/22 07/06/22 07/06/22 17:34 19:27 20:05 WBC RBC Hgb Hct MCV MCH MCHC RDW Plt Count MPV Immature Gran % (Auto) Neut % (Auto) Lymph % (Auto) [place] % (Auto) Eos % (Auto) Baso % (Auto) Lymph # (Auto) [place] # (Auto) Eos # (Auto) Baso # (Auto) Abs Immat Gran (auto) Absolute Neuts (auto) Absolute Nucleated RBC Nucleated RBC % (auto) PT INR APTT D-Dimer High Sensitivty Sodium 139 Potassium 4.2 Chloride 114 H Carbon Dioxide 16 L Anion Gap 13 BUN 43 H Creatinine 3.32 H Estim Creat Clear Calc 26.6 Estimated GFR 16 POC Glucose Random Glucose 130 H Lactic Acid 0.8 Calcium 8.1 L Magnesium 2.1 Total Bilirubin 1.0 AST 13 ALT 15 Alkaline Phosphatase 93 B-Natriuretic Peptide 2883 H Total Protein 6.3 L Albumin 3.0 L Beta HCG, Quant < 2 Urine Color Urine Appearance Urine pH Ur Specific [place] Urine Protein Urine Glucose (UA) Urine Ketones Urine Blood Urine Nitrite Ur Leukocyte Esterase Urine RBC Urine WBC Ur Squamous Epith Cells Urine Bacteria Hyaline Casts Urine Opiates Screen Urine Fentanyl Screen Ur Barbiturates Screen Ur Phencyclidine Scrn Ur Amphetamines Screen U Benzodiazepines Scrn Urine Cocaine Screen U Marijuana (THC) Screen Acetone, Qual Negative 07/06/22 07/06/22 07/06/22 20:52 20:52 20:56 WBC RBC Hgb Hct MCV MCH MCHC RDW Plt Count MPV Immature Gran % (Auto) Neut % (Auto) Lymph % (Auto) [place] % (Auto) Eos % (Auto) Baso % (Auto) Lymph # (Auto) [place] # (Auto) Eos # (Auto) Baso # (Auto) Abs Immat Gran (auto) Absolute Neuts (auto) Absolute Nucleated RBC Nucleated RBC % (auto) PT INR APTT D-Dimer High Sensitivty Sodium Potassium Chloride Carbon Dioxide Anion Gap BUN Creatinine Estim Creat Clear Calc Estimated GFR POC Glucose 125 H Random Glucose Lactic Acid Calcium Magnesium Total Bilirubin AST ALT Alkaline Phosphatase B-Natriuretic Peptide Total Protein Albumin Beta HCG, Quant Urine Color Yellow Urine Appearance Clear Urine pH 6.0 Ur Specific [place] 1.015 Urine Protein >=1000 (4+) H Urine Glucose (UA) 250 H Urine Ketones Negative Urine Blood Trace H Urine Nitrite Negative Ur Leukocyte Esterase Negative Urine RBC 3-5 H Urine WBC 0-5 Ur Squamous Epith Cells 0-2 Urine Bacteria 4+ Hyaline Casts 0-2 Urine Opiates Screen Not Detected Urine Fentanyl Screen Not Detected Ur Barbiturates Screen Not Detected Ur Phencyclidine Scrn Not Detected Ur Amphetamines Screen Not Detected U Benzodiazepines Scrn Not Detected Urine Cocaine Screen Not Detected U Marijuana (THC) Screen Not Detected Acetone, Qual 07/07/22 07/07/22 07/07/22 06:20 06:20 06:59 WBC 4.1 L RBC 2.91 L Hgb 7.5 L Hct 24.7 L MCV 84.9 MCH 25.8 L MCHC 30.4 L RDW 17.2 H Plt Count 184 MPV 12.4 H Immature Gran % (Auto) 0.2 Neut % (Auto) 75.2 H Lymph % (Auto) 15.7 L [place] % (Auto) 6.3 Eos % (Auto) 1.9 Baso % (Auto) 0.7 Lymph # (Auto) 0.7 L [place] # (Auto) 0.3 Eos # (Auto) 0.1 Baso # (Auto) 0.0 Abs Immat Gran (auto) 0.01 Absolute Neuts (auto) 3.1 Absolute Nucleated RBC 0.000 Nucleated RBC % (auto) 0.0 PT INR APTT D-Dimer High Sensitivty Sodium 139 Potassium 4.1 Chloride 111 H Carbon Dioxide 19 L Anion Gap 13 BUN 42 H Creatinine 3.45 H Estim Creat Clear Calc 25.6 Estimated GFR 15 POC Glucose 96 Random Glucose 100 Lactic Acid Calcium 8.0 L Magnesium Total Bilirubin AST ALT Alkaline Phosphatase B-Natriuretic Peptide Total Protein Albumin Beta HCG, Quant Urine Color Urine Appearance Urine pH Ur Specific [place] Urine Protein Urine Glucose (UA) Urine Ketones Urine Blood Urine Nitrite Ur Leukocyte Esterase Urine RBC Urine WBC Ur Squamous Epith Cells Urine Bacteria Hyaline Casts Urine Opiates Screen Urine Fentanyl Screen Ur Barbiturates Screen Ur Phencyclidine Scrn Ur Amphetamines Screen U Benzodiazepines Scrn Urine Cocaine Screen U Marijuana (THC) Screen Acetone, Qual ECG Interpretation: EKG with sinus rhythm at 84/Min; possible left atrial enlargement; right bundle-branch block pattern. Imaging Radiologist's impression: Impressions Venous Duplex 07/06/22 16:34 IMPRESSION: Possible nonocclusive thrombus in the right posterior tibial vein. Duplex Scan Lower Extremity Artery 07/06/22 16:41 IMPRESSION: No hemodynamically significant stenosis in the right lower extremity. Tibia/Fibula X-Ray 07/06/22 18:30 IMPRESSION: Diffuse soft tissue swelling. No fracture or malalignment. Abdomen/Pelvis CT 07/06/22 19:21 IMPRESSION: 1. No acute intracranial process seen. 2. Bilateral pulmonary nodules are stable. Left lower lobe consolidation has resolved. 3. Moderate right and small left pleural effusion. 4. Small pericardial effusion. 5. Diffuse abdominal wall edema. 6. High attenuation urine in the bladder. Correlate with urine analysis. 7. Mild constipation without obstruction. Chest CT 07/06/22 19:21 IMPRESSION: 1. No acute intracranial process seen. 2. Bilateral pulmonary nodules are stable. Left lower lobe consolidation has resolved. 3. Moderate right and small left pleural effusion. 4. Small pericardial effusion. 5. Diffuse abdominal wall edema. 6. High attenuation urine in the bladder. Correlate with urine analysis. 7. Mild constipation without obstruction. Head CT 07/06/22 19:21 IMPRESSION: 1. No acute intracranial process seen. 2. Bilateral pulmonary nodules are stable. Left lower lobe consolidation has resolved. 3. Moderate right and small left pleural effusion. 4. Small pericardial effusion. 5. Diffuse abdominal wall edema. 6. High attenuation urine in the bladder. Correlate with urine analysis. 7. Mild constipation without obstruction. Assessment and Plan (1) Hypertensive emergency: Status: Acute (2) Acute on chronic systolic and diastolic heart failure, NYHA class 3: Status: Acute Plan In the most recent echocardiogram, LVEF is 35-40%. Moderate LVH. Advanced diastolic dysfunction. Valves are unremarkable. Moderate to severe tricuspid regurgitation with pulmonary hypertension. Small circumferential pericardial effusion. Myocardial perfusion imaging study at [facility] from 2021 reported normal with no fixed reversible defects. In that study, LVEF was 43% at rest and 48% during stress. In the blood pressures, systolics have exceeded 200 mm Hg and diastolics have exceeded 120 mm Hg. Creatinine is 3.45. Cardiac BNP is high. Overall, uncontrolled hypertension leading to acute on chronic congestive heart failure. Mainstay of therapy will be aggressive blood pressure management. Due to her advanced kidney dysfunction, would get renal involved in that regard. She does have a lot of room to uptitrate including carvedilol, hydralazine, nifedipine isosorbide and will go up on the dosing cording knee. However, compliance at home regarding the same unclear. Also on IV diuretics. Discussed with Dr. Diane. Time Spent With Patient Time: Total time managing care of this patient today ____ minutes. Procedures Date of Service Date of Service: 07/07/22
[2022-07-07 11:10] LABS: Glucose, Whole Blood 129 mg/dL (60-115)
[2022-07-07 11:12] LABS: Estimated Average Glucose 137 mg/dL; Hemoglobin A1C 153.1183 umol/L; Hemoglobin A1c % 6.4 %
--- NOTE | 2022-07-07 12:51 | PM.CNNEP ---
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 h/o ADvanced CKD Non compliant with meds Review of Systems Review of Systems Has headache. No fever. No shortness of breath. No diarrhea constipation. Leg edema present. No nausea vomiting. Other systems were reviewed. Constitutional: Reports chills PMFSH Past Medical History Medical History Abnormal finding on echocardiogram Acute dyspnea Acute worsening of stage 3 chronic kidney disease MYNOR (acute kidney injury) Anemia Anemia in chronic kidney disease (CKD) Asthma Back pain Blind right eye Bone infection Cellulitis Cellulitis and abscess of foot delivery delivered Chest pain CHF (congestive heart failure) (~06/07/22) CKD (chronic kidney disease) CKD (chronic kidney disease) Depression with anxiety Diabetes Diabetic retinopathy DM foot ulcer Elevated troponin Essential hypertension Fever Generalized edema HTN (hypertension) Hypertension (~06/10/22) Migraine Osteomyelitis PAD (peripheral artery disease) Pleural effusion test positive test positive Sepsis Severe anemia Tachycardia Type 2 diabetes mellitus with hyperglycemia, with long-term current use of insulin Family History Family History Mother Coronary artery disease Myocardial infarction Stroke Diabetes mellitus Father Myocardial infarction Surgical History Surgical History History of transmetatarsal amputation of foot S/P transmetatarsal amputation of foot Social History Social History Household Members: Significant Other Household Members Other:: Sister, [id number], nephew Housing: Apartment Do you presently have visiting nurse or other home services: Yes (services) Alcohol intake: never Patient Tobacco Use Status: Never used Tobacco Smoked in Last 30 Days: No e-Cigarette/Vaping Use: Never Used Patient Interested in Nicotine Replacement: No Patient Given Instructions on How to Stop Smoking: No Second Hand Smoke Exposure: No Use of substances other than those prescribed or required for medical reasons: No Currently Displaying Signs/Symptoms of Drug Intoxication Withdrawal: No Any prior treatment program specific to substance use: No Have you been hit, kicked, punched, or otherwise hurt by someone within the past year? If so, by whom?: No Do you feel safe in your current relationship?: Yes Is there a partner from a previous relationship who is making you feel unsafe now?: No Advance Directives: No Advance Directives Information Provided: No Advance Directives Date on File: 03/08/20 Do you have thoughts of harming others: None Do you have a plan to hurt others: No Plan Recently lost weight without trying: No Eating poorly because of decreased appetite: No Nutrition Risks: No Nutritional Risk Patient : No : No Poor oral hygiene: No service: No Current occupational status: disabled Gender identity: Female Meds Allergies Allergy/AdvReac Type Severity Reaction Status Date / Time morphine [MORPHINE] Allergy Intermediate Itching Verified 07/06/22 16:17 azithromycin [From Zithromax] Allergy Hives Verified 07/06/22 16:17 gabapentin Allergy Facial Verified 07/06/22 16:17 Swelling tramadol Allergy Facial Verified 07/06/22 16:17 Swelling vancomycin Allergy Hives Verified 07/06/22 16:17 Active Medications: Current Medications Acetaminophen (Acetaminophen 325 Mg Tablet) 650 mg PO Q6H PRN PRN Reason: Pain, Mild (Pain Scale 1-3) Apixaban (Apixaban 5 Mg Tablet) 10 mg PO BID [facility] Stop: 07/13/22 21:01 Last Admin: 07/07/22 08:23 Dose: 10 mg Aspirin (Aspirin Enteric Coated 81 Mg Tablet.) 81 mg PO DAILY [facility] Last Admin: 07/07/22 08:23 Dose: 81 mg Carvedilol (Carvedilol 12.5 Mg Tablet) 12.5 mg PO BID [facility]; Protocol Ferrous Sulfate (Ferrous Sulfate 324 Mg Tablet.) 324 mg PO DAILY [facility] Last Admin: 07/07/22 08:23 Dose: 324 mg Furosemide (Furosemide 40 Mg/4 Ml Vial) 80 mg IVPUSH BID@0900,1800 [facility]; Protocol Last Admin: 07/07/22 08:26 Dose: 80 mg Glucose (Glucose Gel 15 Gm Gel..Gram.) 15 gm PO Q15M PRN; Protocol PRN Reason: per Hypoglycemia Standing Ord. Hydralazine HCl (Hydralazine Hcl 25 Mg Tablet) 25 mg PO TID [facility]; Protocol Hydromorphone HCl (Hydromorphone Hcl 0.5 Mg/0.5 Ml Syringe) 0.5 mg IVPUSH Q4H PRN; Protocol PRN Reason: severe pain Last Admin: 07/07/22 11:13 Dose: 0.5 mg Dextrose (D10) 250 mls @ 750 mls/hr IV Q15M PRN; Protocol PRN Reason: per Hypoglycemia Standing Ord. Insulin Human Lispro (Insulin Lispro 100 Unit/Ml 3 Ml Vial) 0 unit SUBCUT QIDACHS [facility]; Protocol Last Admin: 07/07/22 11:11 Dose: Not Given Isosorbide Mononitrate (Isosorbide Mononitrate 30 Mg Tab.Er.24h) 30 mg PO DAILY [facility]; Protocol Last Admin: 07/07/22 08:23 Dose: 30 mg Melatonin (Melatonin 3 Mg Tablet) 6 mg PO BEDTIME PRN PRN Reason: Insomnia Nifedipine (Nifedipine Er 30 Mg Tab.Er.24) 30 mg PO DAILY [facility]; Protocol Last Admin: 07/07/22 08:23 Dose: 30 mg Omeprazole (Omeprazole 20 Mg Capsule.Dr) 20 mg PO DAILY@0630 [facility] Ondansetron HCl (Ondansetron Hcl 4 Mg/2 Ml Vial) 4 mg IVPUSH Q8H PRN PRN Reason: Nausea and Vomiting Last Admin: 07/07/22 03:51 Dose: 4 mg Oxycodone HCl (Oxycodone Hcl Immed Release 5 Mg Tablet) 5 mg PO Q6H PRN PRN Reason: Pain, Moderate(Pain Scale 4-6) Oxycodone HCl (Oxycodone Hcl Immed Release 5 Mg Tablet) 5 mg PO Q6H PRN PRN Reason: severe pain Pharmacy Consult (Consult Rx Perform Med Rec) 1 each MISCELLANE ONCE PRN PRN Reason: Consult order Sodium Bicarbonate (Sodium Bicarbonate 650 Mg Tablet) 650 mg PO BID [facility] Last Admin: 07/07/22 08:23 Dose: 650 mg Sodium Chloride (0.9 % Sodium Chloride Flush 3 Ml Syringe) 3 ml IVFLUSH QSHIFT [facility] Last Admin: 07/07/22 08:23 Dose: 3 ml Home Medications Medication Instructions Recorded Confirmed Last Taken Type acetaminophen 325 mg tablet 650 mg PO Q4H PRN Pain 04/01/22 07/06/22 Unknown History aspirin 81 mg tablet,delayed 1 tab PO DAILY 04/01/22 07/06/22 2 Days Ago History release ~04/20/22 pantoprazole 40 mg tablet,delayed 1 tab PO DAILY@0630 04/01/22 07/06/22 2 Days Ago History release ~04/20/22 insulin aspart U-100 100 unit/mL 2 - 10 unit subcut TID 05/10/22 07/06/22 Unknown History (3 mL) subcutaneous pen (Novolog FlexPen U-100 Insulin aspart) insulin detemir U-100 100 unit/mL 8 unit subcut BEDTIME 05/10/22 07/06/22 Unknown History (3 mL) subcutaneous pen (Levemir FlexTouch U-100 Insulin) hydralazine 50 mg tablet 50 mg PO BID 06/07/22 07/06/22 Unknown History nifedipine 30 mg tablet,extended 30 mg PO DAILY 06/07/22 07/06/22 Unknown History release 24 hr oxycodone 5 mg tablet 5 mg PO Q6H PRN severe pain 06/07/22 07/06/22 Unknown History docusate sodium 100 mg capsule 100 mg PO DAILY PRN constipation 07/06/22 07/06/22 Unknown History ferrous fumarate 324 mg (106 mg 324 mg PO DAILY 07/06/22 07/06/22 Unknown History iron) tablet (Ferrocite) Physical Exam Vital Signs: Last Vital Signs Temp 97.1 F 07/07/22 11:34 Pulse 86 07/07/22 11:34 Resp 18 07/07/22 11:34 BP 168/94 H 07/07/22 11:34 Pulse Ox 99 07/07/22 11:34 O2 Del Method Room Air 07/07/22 11:34 BMI result Body Mass Index 30.7 Results Lab Results 07/07/22 06:20 07/07/22 06:20 Lab results: Chemistry 07/06/22 07/07/22 20:05 06:20 Sodium 139 139 Potassium 4.2 4.1 Carbon Dioxide 16 L 19 L BUN 43 H 42 H Creatinine 3.32 H 3.45 H Calcium 8.1 L 8.0 L Hematology 07/06/22 07/07/22 17:34 06:20 WBC 5.9 4.1 L Hgb 8.8 L 7.5 L Plt Count 220 184 Urinalysis 07/06/22 20:52 Urine Color Yellow Urine Appearance Clear Urine pH 6.0 Ur Specific [place] 1.015 Urine Protein >=1000 (4+) H Urine Glucose (UA) 250 H Urine Ketones Negative Urine Blood Trace H Urine Nitrite Negative Ur Leukocyte Esterase Negative Urine RBC 3-5 H Urine WBC 0-5 Ur Squamous Epith Cells 0-2 Hyaline Casts 0-2 Assessment and Plan (1) Hypertensive emergency: Status: Acute Plan CKD 4. Advanced kidney disease nephrotic range proteinuria presumably due to diabetic nephropathy Resistant hypertension. Severe anemia. Secondary hyperparathyroidism. Suggest. 2G sodium diet. Check iron, TIBC, ferritin. Optimize blood pressure. All medications were reviewed. Agree with current antihypertensive regimen. Titrate hydralazine gradually. Avoid hypotension. She needs to be well diuresed. Agree with sodium bicarbonate to correct acidosis. No absolute indication for dialysis yet. She is approaching ESRD. Time Spent With Patient Time: Total time managing care of this patient today ____ minutes. Procedures Date of Service Date of Service: 07/08/22
--- NOTE | 2022-07-07 15:34 | P.PNIM_ITS ---
Subjective Subjective Date of Service: 07/07/22 Interval History: C/o headache + leg sweling/ dyspnea improved Review of Systems Review of Systems: Yes all other systems are reviewed and are negative Physical Exam Vital Signs: Vital Signs: Last Vital Signs Temp 97.0 F 07/07/22 15:08 Pulse 84 07/07/22 15:08 Resp 20 07/07/22 15:08 BP 184/101 H 07/07/22 15:08 Pulse Ox 97 07/07/22 15:08 O2 Del Method Room Air 07/07/22 15:08 BMI result Body Mass Index 30.7 Gen: in no acute distress HEENT: sclera anicteric, moist mucus membranes Neck: supple Lungs: clear to auscultation bilaterally Heart: regular rate and rhythm, no murmurs Abd: soft, non-tender, non-distended Ext: 2+ pitting edema, s/p R TMTA Skin: warm/well-perfused Neuro: alert and oriented x3, no focal findings Psych: appropriate affect Objective Data Active Medications Acetaminophen (Acetaminophen 325 Mg Tablet) 650 mg PO Q6H PRN PRN Reason: Pain, Mild (Pain Scale 1-3) Apixaban (Apixaban 5 Mg Tablet) 10 mg PO BID [facility] Stop: 07/13/22 21:01 Last Admin: 07/07/22 08:23 Dose: 10 mg Documented By: SEAN Aspirin (Aspirin Enteric Coated 81 Mg Tablet.) 81 mg PO DAILY [facility] Last Admin: 07/07/22 08:23 Dose: 81 mg Documented By: SEAN Carvedilol (Carvedilol 12.5 Mg Tablet) 12.5 mg PO BID [facility]; Protocol Ferrous Sulfate (Ferrous Sulfate 324 Mg Tablet.) 324 mg PO DAILY [facility] Last Admin: 07/07/22 08:23 Dose: 324 mg Documented By: SEAN Furosemide (Furosemide 40 Mg/4 Ml Vial) 80 mg IVPUSH BID@0900,1800 [facility]; Protocol Last Admin: 07/07/22 08:26 Dose: 80 mg Documented By: SEAN Glucose (Glucose Gel 15 Gm Gel..Gram.) 15 gm PO Q15M PRN; Protocol PRN Reason: per Hypoglycemia Standing Ord. Hydralazine HCl (Hydralazine Hcl 25 Mg Tablet) 25 mg PO TID [facility]; Protocol Hydromorphone HCl (Hydromorphone Hcl 0.5 Mg/0.5 Ml Syringe) 0.5 mg IVPUSH Q4H PRN; Protocol PRN Reason: severe pain Last Admin: 07/07/22 11:13 Dose: 0.5 mg Documented By: SEAN Dextrose (D10) 250 mls @ 750 mls/hr IV Q15M PRN; Protocol PRN Reason: per Hypoglycemia Standing Ord. Insulin Human Lispro (Insulin Lispro 100 Unit/Ml 3 Ml Vial) 0 unit SUBCUT QIDACHS [facility]; Protocol Last Admin: 07/07/22 11:11 Dose: Not Given Documented By: SEAN Non-Admin Reason: No Insulin Coverage Isosorbide Mononitrate (Isosorbide Mononitrate 30 Mg Tab.Er.24h) 30 mg PO DAILY [facility]; Protocol Last Admin: 07/07/22 08:23 Dose: 30 mg Documented By: SEAN Melatonin (Melatonin 3 Mg Tablet) 6 mg PO BEDTIME PRN PRN Reason: Insomnia Nifedipine (Nifedipine Er 30 Mg Tab.Er.24) 30 mg PO DAILY [facility]; Protocol Last Admin: 07/07/22 08:23 Dose: 30 mg Documented By: SEAN Omeprazole (Omeprazole 20 Mg Capsule.Dr) 20 mg PO DAILY@0630 [facility] Ondansetron HCl (Ondansetron Hcl 4 Mg/2 Ml Vial) 4 mg IVPUSH Q8H PRN PRN Reason: Nausea and Vomiting Last Admin: 07/07/22 03:51 Dose: 4 mg Documented By: NITIN Oxycodone HCl (Oxycodone Hcl Immed Release 5 Mg Tablet) 5 mg PO Q6H PRN PRN Reason: Pain, Moderate(Pain Scale 4-6) Oxycodone HCl (Oxycodone Hcl Immed Release 5 Mg Tablet) 5 mg PO Q6H PRN PRN Reason: severe pain Pharmacy Consult (Consult Rx Perform Med Rec) 1 each MISCELLANE ONCE PRN PRN Reason: Consult order Sodium Bicarbonate (Sodium Bicarbonate 650 Mg Tablet) 650 mg PO BID [facility] Last Admin: 07/07/22 08:23 Dose: 650 mg Documented By: SEAN Sodium Chloride (0.9 % Sodium Chloride Flush 3 Ml Syringe) 3 ml IVFLUSH QSHIFT [facility] Last Admin: 07/07/22 08:23 Dose: 3 ml Documented By: SEAN Labs 07/07/22 06:20 07/07/22 06:20 Labs: Laboratory Results - last 24 hr 07/06/22 07/06/22 07/06/22 17:29 17:34 17:34 MCV 82.0 MCH 25.6 L MCHC 31.2 RDW 17.2 H Plt Count 220 MPV 11.7 Immature Gran % (Auto) 0.3 Neut % (Auto) 78.6 H Lymph % (Auto) 11.9 L Tift % (Auto) 6.1 Eos % (Auto) 2.4 Baso % (Auto) 0.7 Lymph # (Auto) 0.7 L Tift # (Auto) 0.4 Eos # (Auto) 0.1 Baso # (Auto) 0.0 Abs Immat Gran (auto) 0.02 Absolute Neuts (auto) 4.6 Absolute Nucleated RBC 0.000 Nucleated RBC % (auto) 0.0 PT 13.0 INR 1.1 APTT 30.6 D-Dimer High Sensitivty 977 Anion Gap Estim Creat Clear Calc Estimated GFR POC Glucose 110 Random Glucose Estimat Average Glucose Hemoglobin A1c % Lactic Acid Calcium Magnesium Total Bilirubin AST ALT Alkaline Phosphatase B-Natriuretic Peptide Total Protein Albumin Triglycerides Cholesterol LDL Cholesterol, Calc HDL Cholesterol Beta HCG, Quant Urine Color Urine Appearance Urine pH Ur Specific Coin Urine Protein Urine Glucose (UA) Urine Ketones Urine Blood Urine Nitrite Ur Leukocyte Esterase Urine RBC Urine WBC Ur Squamous Epith Cells Urine Bacteria Hyaline Casts Urine Opiates Screen Urine Fentanyl Screen Ur Barbiturates Screen Ur Phencyclidine Scrn Ur Amphetamines Screen U Benzodiazepines Scrn Urine Cocaine Screen U Marijuana (THC) Screen Acetone, Qual 07/06/22 07/06/22 07/06/22 17:34 19:27 20:05 MCV MCH MCHC RDW Plt Count MPV Immature Gran % (Auto) Neut % (Auto) Lymph % (Auto) Tift % (Auto) Eos % (Auto) Baso % (Auto) Lymph # (Auto) Tift # (Auto) Eos # (Auto) Baso # (Auto) Abs Immat Gran (auto) Absolute Neuts (auto) Absolute Nucleated RBC Nucleated RBC % (auto) PT INR APTT D-Dimer High Sensitivty Anion Gap 13 Estim Creat Clear Calc 26.6 Estimated GFR 16 POC Glucose Random Glucose 130 H Estimat Average Glucose Hemoglobin A1c % Lactic Acid 0.8 Calcium 8.1 L Magnesium 2.1 Total Bilirubin 1.0 AST 13 ALT 15 Alkaline Phosphatase 93 B-Natriuretic Peptide 2883 H Total Protein 6.3 L Albumin 3.0 L Triglycerides Cholesterol LDL Cholesterol, Calc HDL Cholesterol Beta HCG, Quant < 2 Urine Color Urine Appearance Urine pH Ur Specific Coin Urine Protein Urine Glucose (UA) Urine Ketones Urine Blood Urine Nitrite Ur Leukocyte Esterase Urine RBC Urine WBC Ur Squamous Epith Cells Urine Bacteria Hyaline Casts Urine Opiates Screen Urine Fentanyl Screen Ur Barbiturates Screen Ur Phencyclidine Scrn Ur Amphetamines Screen U Benzodiazepines Scrn Urine Cocaine Screen U Marijuana (THC) Screen Acetone, Qual Negative 07/06/22 07/06/22 07/06/22 20:52 20:52 20:56 MCV MCH MCHC RDW Plt Count MPV Immature Gran % (Auto) Neut % (Auto) Lymph % (Auto) Tift % (Auto) Eos % (Auto) Baso % (Auto) Lymph # (Auto) Tift # (Auto) Eos # (Auto) Baso # (Auto) Abs Immat Gran (auto) Absolute Neuts (auto) Absolute Nucleated RBC Nucleated RBC % (auto) PT INR APTT D-Dimer High Sensitivty Anion Gap Estim Creat Clear Calc Estimated GFR POC Glucose 125 H Random Glucose Estimat Average Glucose Hemoglobin A1c % Lactic Acid Calcium Magnesium Total Bilirubin AST ALT Alkaline Phosphatase B-Natriuretic Peptide Total Protein Albumin Triglycerides Cholesterol LDL Cholesterol, Calc HDL Cholesterol Beta HCG, Quant Urine Color Yellow Urine Appearance Clear Urine pH 6.0 Ur Specific Coin 1.015 Urine Protein >=1000 (4+) H Urine Glucose (UA) 250 H Urine Ketones Negative Urine Blood Trace H Urine Nitrite Negative Ur Leukocyte Esterase Negative Urine RBC 3-5 H Urine WBC 0-5 Ur Squamous Epith Cells 0-2 Urine Bacteria 4+ Hyaline Casts 0-2 Urine Opiates Screen Not Detected Urine Fentanyl Screen Not Detected Ur Barbiturates Screen Not Detected Ur Phencyclidine Scrn Not Detected Ur Amphetamines Screen Not Detected U Benzodiazepines Scrn Not Detected Urine Cocaine Screen Not Detected U Marijuana (THC) Screen Not Detected Acetone, Qual 07/07/22 07/07/22 07/07/22 06:20 06:20 06:20 MCV 84.9 MCH 25.8 L MCHC 30.4 L RDW 17.2 H Plt Count 184 MPV 12.4 H Immature Gran % (Auto) 0.2 Neut % (Auto) 75.2 H Lymph % (Auto) 15.7 L Tift % (Auto) 6.3 Eos % (Auto) 1.9 Baso % (Auto) 0.7 Lymph # (Auto) 0.7 L Tift # (Auto) 0.3 Eos # (Auto) 0.1 Baso # (Auto) 0.0 Abs Immat Gran (auto) 0.01 Absolute Neuts (auto) 3.1 Absolute Nucleated RBC 0.000 Nucleated RBC % (auto) 0.0 PT INR APTT D-Dimer High Sensitivty Anion Gap 13 Estim Creat Clear Calc 25.6 Estimated GFR 15 POC Glucose Random Glucose 100 Estimat Average Glucose 137 Hemoglobin A1c % 6.4 Lactic Acid Calcium 8.0 L Magnesium Total Bilirubin AST ALT Alkaline Phosphatase B-Natriuretic Peptide Total Protein Albumin Triglycerides Cancelled Cholesterol Cancelled LDL Cholesterol, Calc Cancelled HDL Cholesterol Cancelled Beta HCG, Quant Urine Color Urine Appearance Urine pH Ur Specific Coin Urine Protein Urine Glucose (UA) Urine Ketones Urine Blood Urine Nitrite Ur Leukocyte Esterase Urine RBC Urine WBC Ur Squamous Epith Cells Urine Bacteria Hyaline Casts Urine Opiates Screen Urine Fentanyl Screen Ur Barbiturates Screen Ur Phencyclidine Scrn Ur Amphetamines Screen U Benzodiazepines Scrn Urine Cocaine Screen U Marijuana (THC) Screen Acetone, Qual 07/07/22 07/07/22 06:59 11:04 MCV MCH MCHC RDW Plt Count MPV Immature Gran % (Auto) Neut % (Auto) Lymph % (Auto) Tift % (Auto) Eos % (Auto) Baso % (Auto) Lymph # (Auto) Tift # (Auto) Eos # (Auto) Baso # (Auto) Abs Immat Gran (auto) Absolute Neuts (auto) Absolute Nucleated RBC Nucleated RBC % (auto) PT INR APTT D-Dimer High Sensitivty Anion Gap Estim Creat Clear Calc Estimated GFR POC Glucose 96 129 H Random Glucose Estimat Average Glucose Hemoglobin A1c % Lactic Acid Calcium Magnesium Total Bilirubin AST ALT Alkaline Phosphatase B-Natriuretic Peptide Total Protein Albumin Triglycerides Cholesterol LDL Cholesterol, Calc HDL Cholesterol Beta HCG, Quant Urine Color Urine Appearance Urine pH Ur Specific Coin Urine Protein Urine Glucose (UA) Urine Ketones Urine Blood Urine Nitrite Ur Leukocyte Esterase Urine RBC Urine WBC Ur Squamous Epith Cells Urine Bacteria Hyaline Casts Urine Opiates Screen Urine Fentanyl Screen Ur Barbiturates Screen Ur Phencyclidine Scrn Ur Amphetamines Screen U Benzodiazepines Scrn Urine Cocaine Screen U Marijuana (THC) Screen Acetone, Qual Assessment and Plan (1) Acute on chronic systolic and diastolic heart failure, NYHA class 3: Status: Acute Plan d#2 31yo F with HTN, HFrEF, DM2 with retinopathy, mood disorder, PAD s/p R TMTA, CK D4 presenting with M[place], admitted for HTN emergency/CHF exacerbation # HTN emergency - given nitropaste + IV labetalol in ED, currently resume nifedipine + hydralazine + carvedilol + Imdur with room to increase doses; unclear outpt adherence # acute/chronic HFrEF - diureses with IV furosemide; negative 2650 mL thus far. trend BNP, monitor I/O. Cardiology consulted - antihypertensives as above # R posterior tibial DVT - change Lovenox to apixaban 10 mg bid # CKD4 - Nephrology following, monitor SCr with diuresis # DM2 - muna-dose lispro # anemia of CKD - check iron studies # VTE ppx: apixaban # dispo: TBD Time Spent With Patient Time: Total time managing care of this patient today __40__ minutes. Quality Stroke Does the patient have a stroke diagnosis?: No VTE Prior VTE?: No VTE Risk Level:: Medical - moderate - high VTE Device Contraindication: Treatment Not Indicated VTE Drug Contraindication: N/A - Med Ordered
[2022-07-07] MEDS: hydrALAZINE HCl 25 MG TABLET PO ×2 (16:21→21:05)
[2022-07-07] MEDS: Melatonin 3 MG TABLET 6 MG PO (21:04)
[2022-07-07] MEDS: carvediloL 12.5 MG TABLET PO (21:05)
[2022-07-08] VITALS (7 sets, daily range): BP systolic 140–174; BP diastolic 72–95; PULSE 68–88; RESP 18–20; TEMP 36.1–37.3; O2SAT 94–98
[2022-07-08 07:58] LABS: Glucose, Whole Blood 81 mg/dL (60-115)
[2022-07-08] MEDS: ondansetron HCL 4 MG/2 ML VIAL IVPUSH ×2 (09:06→22:53)
[2022-07-08] MEDS: HYDROmorphone HCl 0.5 MG/0.5 ML SYRINGE IVPUSH ×3 (09:07→19:19)
[2022-07-08] MEDS: Furosemide 40 MG/4 ML VIAL 80 MG IVPUSH ×2 (09:08→17:46)
[2022-07-08] MEDS: carvediloL 12.5 MG TABLET 25 MG PO ×2 (09:14→19:21)
[2022-07-08] MEDS: hydrALAZINE HCl 25 MG TABLET PO ×3 (09:14→19:20)
[2022-07-08] MEDS: Apixaban 5 MG TABLET 10 MG PO ×2 (09:15→19:19)
[2022-07-08] MEDS: 0.9 % Sodium Chloride Flush 3 ML SYRINGE IVFLUSH ×3 (09:15→22:53)
--- NOTE | 2022-07-08 09:55 | P.PNIM_ITS ---
Subjective Subjective Date of Service: 07/08/22 Interval History: intermittent MENDIOLA BP still high diuresing refused labs this AM Review of Systems Review of Systems: Yes all other systems are reviewed and are negative Physical Exam Vital Signs: Vital Signs: Last Vital Signs Temp 97.4 F 07/08/22 07:31 Pulse 88 07/08/22 07:31 Resp 18 07/08/22 07:31 BP 174/95 H 07/08/22 07:31 Pulse Ox 96 07/08/22 07:31 O2 Del Method Room Air 07/08/22 07:31 BMI result Body Mass Index 30.7 Gen: in no acute distress HEENT: sclera anicteric, moist mucus membranes Neck: supple Lungs: clear to auscultation bilaterally Heart: regular rate and rhythm, no murmurs Abd: soft, non-tender, non-distended Ext: 2+ pitting edema, s/p R TMTA Skin: warm/well-perfused Neuro: alert and oriented x3, no focal findings Psych: appropriate affect Objective Data Active Medications Acetaminophen (Acetaminophen 325 Mg Tablet) 650 mg PO Q6H PRN PRN Reason: Pain, Mild (Pain Scale 1-3) Apixaban (Apixaban 5 Mg Tablet) 10 mg PO BID [facility] Stop: 07/13/22 21:01 Last Admin: 07/08/22 09:15 Dose: 10 mg Documented By: HERMINIO Aspirin (Aspirin Enteric Coated 81 Mg Tablet.) 81 mg PO DAILY [facility] Last Admin: 07/08/22 09:17 Dose: Not Given Documented By: HERMINIO Non-Admin Reason: Patient Refused Carvedilol (Carvedilol 12.5 Mg Tablet) 25 mg PO BID [facility]; Protocol Last Admin: 07/08/22 09:14 Dose: 25 mg Documented By: HERMINIO Ferrous Sulfate (Ferrous Sulfate 324 Mg Tablet.) 324 mg PO DAILY [facility] Last Admin: 07/08/22 09:16 Dose: Not Given Documented By: HERMINIO Non-Admin Reason: Patient Refused Furosemide (Furosemide 40 Mg/4 Ml Vial) 80 mg IVPUSH BID@0900,1800 [facility]; Protocol Last Admin: 07/08/22 09:08 Dose: 80 mg Documented By: HERMINIO Glucose (Glucose Gel 15 Gm Gel..Gram.) 15 gm PO Q15M PRN; Protocol PRN Reason: per Hypoglycemia Standing Ord. Hydralazine HCl (Hydralazine Hcl 25 Mg Tablet) 25 mg PO TID [facility]; Protocol Last Admin: 07/08/22 09:14 Dose: 25 mg Documented By: HERMINIO Hydromorphone HCl (Hydromorphone Hcl 0.5 Mg/0.5 Ml Syringe) 0.5 mg IVPUSH Q4H PRN; Protocol PRN Reason: severe pain Last Admin: 07/08/22 09:07 Dose: 0.5 mg Documented By: HERMINIO Dextrose (D10) 250 mls @ 750 mls/hr IV Q15M PRN; Protocol PRN Reason: per Hypoglycemia Standing Ord. Insulin Human Lispro (Insulin Lispro 100 Unit/Ml 3 Ml Vial) 0 unit SUBCUT QIDACHS [facility]; Protocol Last Admin: 07/08/22 08:00 Dose: Not Given Documented By: HERMINIO Non-Admin Reason: No Insulin Coverage Isosorbide Mononitrate (Isosorbide Mononitrate 30 Mg Tab.Er.24h) 30 mg PO DAILY [facility]; Protocol Last Admin: 07/08/22 09:16 Dose: Not Given Documented By: HERMINIO Non-Admin Reason: Patient Refused Melatonin (Melatonin 3 Mg Tablet) 6 mg PO BEDTIME PRN PRN Reason: Insomnia Last Admin: 07/07/22 21:04 Dose: 6 mg Documented By: LOC Nifedipine (Nifedipine Er 30 Mg Tab.Er.24) 30 mg PO DAILY [facility]; Protocol Last Admin: 07/08/22 09:16 Dose: Not Given Documented By: HERMINIO Non-Admin Reason: Patient Refused Omeprazole (Omeprazole 20 Mg Capsule.) 20 mg PO DAILY@0630 [facility] Last Admin: 07/08/22 06:15 Dose: Not Given Documented By: LOC Non-Admin Reason: Patient Refused Ondansetron HCl (Ondansetron Hcl 4 Mg/2 Ml Vial) 4 mg IVPUSH Q8H PRN PRN Reason: Nausea and Vomiting Last Admin: 07/08/22 09:06 Dose: 4 mg Documented By: HERMINIO Oxycodone HCl (Oxycodone Hcl Immed Release 5 Mg Tablet) 5 mg PO Q6H PRN PRN Reason: Pain, Moderate(Pain Scale 4-6) Oxycodone HCl (Oxycodone Hcl Immed Release 5 Mg Tablet) 5 mg PO Q6H PRN PRN Reason: severe pain Pharmacy Consult (Consult Rx Perform Med Rec) 1 each MISCELLANE ONCE PRN PRN Reason: Consult order Sodium Bicarbonate (Sodium Bicarbonate 650 Mg Tablet) 650 mg PO BID [facility] Last Admin: 07/08/22 09:16 Dose: Not Given Documented By: HERMINIO Non-Admin Reason: Patient Refused Sodium Chloride (0.9 % Sodium Chloride Flush 3 Ml Syringe) 3 ml IVFLUSH QSHIFT [facility] Last Admin: 07/08/22 09:15 Dose: 3 ml Documented By: HERMINIO Labs 07/07/22 06:20 07/07/22 06:20 Labs: Laboratory Results - last 24 hr 07/07/22 07/07/22 07/07/22 06:20 06:20 11:04 POC Glucose 129 H Estimat Average Glucose 137 Hemoglobin A1c % 6.4 Triglycerides Cancelled Cholesterol Cancelled LDL Cholesterol, Calc Cancelled HDL Cholesterol Cancelled 07/08/22 07:30 POC Glucose 81 Estimat Average Glucose Hemoglobin A1c % Triglycerides Cholesterol LDL Cholesterol, Calc HDL Cholesterol Microbiology Microbiology Results: Microbiology 07/06/22 19:27 Blood Culture - Preliminary Blood - Venous No growth after 24 hours. 07/06/22 19:27 Blood Culture - Preliminary Blood - Venous No growth after 24 hours. Assessment and Plan (1) Acute on chronic systolic and diastolic heart failure, NYHA class 3: Status: Acute Plan d#3 31yo F with HTN, HFrEF, DM2 with retinopathy, mood disorder, PAD s/p R TMTA, CKD4 presenting with MENDIOLA, admitted for HTN emergency/CHF exacerbation # HTN emergency - given nitropaste + IV labetalol in ED - resumed nifedipine + hydralazine + carvedilol + Imdur with room to increase d oses; unclear outpt adherence - increase carvedilol 12.5->25 mg bid - monitor BP # acute/chronic HFrEF - diureses with IV furosemide; negative 2850 mL thus far. trend BNP, monitor I/O. Cardiology following: In the most recent echocardiogram, LVEF is 35-40%.? Moderate LVH.? Advanced diastolic dysfunction.? Valves are unremarkable.? Moderate to severe tricuspid regurgitation with pulmonary hypertension.? Small circumferential pericardial effusion. Myocardial perfusion imaging study at [facility] from 2021 reported normal with no fixed reversible defects.? In that study, LVEF was 43% at rest and 48% during stress. - antihypertensives as above # R posterior tibial DVT - changed Lovenox to apixaban 10 mg bid x7d then 5 mg bid [change on 07/14/22] # CKD4 - Nephrology following, monitor SCr with diuresis - sodium bicarbonate for metabolic acidosis # DM2 - muna-dose lispro # anemia of CKD - check iron studies # VTE ppx: apixaban # dispo: TBD Time Spent With Patient Time: Total time managing care of this patient today _35___ minutes. Quality Stroke Does the patient have a stroke diagnosis?: No VTE Prior VTE?: No VTE Risk Level:: Medical - moderate - high VTE Device Contraindication: Treatment Not Indicated VTE Drug Contraindication: N/A - Med Ordered
[2022-07-08 11:07] LABS: Hematocrit 26.4 % (37.0-47.0); Hemoglobin 8.2 g/dl (12.0-16.0); Mean Corpuscular HGB Conc 31.1 g/dl (31.0-35.0); Mean Corpuscular Hemoglobin 25.7 pg (27.0-33.0); Mean Corpuscular Volume 82.8 fL (80.0-98.0); Mean Platelet Volume 11.6 fL (9.4-12.3); Platelet Count 184 X10*3/uL (160-400); Red Blood Count 3.19 X10*6/uL (4.20-5.50); Red Cell Distribution Width 17.5 % (11.0-16.0); White Blood Count 3.8 X10*3/uL (4.8-10.8)
[2022-07-08 11:21] LABS: Anion Gap 14 (12-20); Blood Urea Nitrogen 39 mg/dL (9-16); Calcium 8.3 mg/dL (8.4-10.2); Carbon Dioxide 20 mmol/L (22-29); Chloride 106 mmol/L (96-108); Creatinine Clr Calc Pharmacy 24.1; Estimated Glomerular Filt Rate 14; Glucose Random 80 mg/dL (60-115); Iron 34 mcg/dL (30-160); Percent Iron Saturation 14 % (15-50); Sodium 136 mmol/L (135-145); Total Iron Binding Capacity 250 mcg/dL (228-428); Unsaturated Iron Binding 216 ug/dL
[2022-07-08 11:28] LABS: B Type Natriuretic Peptide 1735 pg/mL (<100)
[2022-07-08 11:42] LABS: Ferritin 35 ng/mL (10-122)
--- NOTE | 2022-07-08 12:35 | PM.PNNEP ---
Subjective Subjective Date of Service: 07/10/22 Interval history: Events noted. Sleeping. Arousable. No headache. No shortness of breath. No nausea or vomiting. Physical Exam Vital Signs: Vital Signs: Last Vital Signs Temp 97.4 F 07/08/22 11:39 Pulse 78 07/08/22 11:39 Resp 20 07/08/22 11:39 BP 157/82 H 07/08/22 11:39 Pulse Ox 98 07/08/22 11:39 O2 Del Method Room Air 07/08/22 11:39 BMI result Body Mass Index 30.7 Comfortable Neck is supple Lung: Air entry equal Heart: S1,S2, normal. No rub Abd: Soft. BS + NS : Alert.No asterexis Ext: 1+ edema Objective Data Labs 07/08/22 10:59 07/08/22 10:59 Labs: Laboratory Results - last 24 hr 07/08/22 07/08/22 07/08/22 07:30 10:59 10:59 WBC 3.8 L RBC 3.19 L Hgb 8.2 L Hct 26.4 L MCV 82.8 MCH 25.7 L MCHC 31.1 RDW 17.5 H Plt Count 184 MPV 11.6 Absolute Nucleated RBC 0.000 Nucleated RBC % (auto) 0.0 Sodium 136 Potassium 4.0 Chloride 106 Carbon Dioxide 20 L Anion Gap 14 BUN 39 H Creatinine 3.66 H Estim Creat Clear Calc 24.1 Estimated GFR 14 POC Glucose 81 Random Glucose 80 Calcium 8.3 L Iron 34 TIBC 250 % Saturation 14 L Unsat Iron Binding 216 Ferritin B-Natriuretic Peptide 07/08/22 07/08/22 10:59 10:59 WBC RBC Hgb Hct MCV MCH MCHC RDW Plt Count MPV Absolute Nucleated RBC Nucleated RBC % (auto) Sodium Potassium Chloride Carbon Dioxide Anion Gap BUN Creatinine Estim Creat Clear Calc Estimated GFR POC Glucose Random Glucose Calcium Iron TIBC % Saturation Unsat Iron Binding Ferritin 35 B-Natriuretic Peptide 1735 H Microbiology Microbiology Results: Microbiology 07/06/22 19:27 Blood - Venous Blood Culture - Preliminary No growth after 24 hours. 07/06/22 19:27 Blood - Venous Blood Culture - Preliminary No growth after 24 hours. Procedures Date of Service Date of Service: 07/10/22 Assessment & Plan Assessment and plan (1) Hypertensive emergency: Status: Acute (2) CKD (chronic kidney disease) stage 4, GFR 15-29 ml/min: Status: Acute Plan CKD 4. Marginal improvement in creatinine. No indication for dialysis yet. Goal is to slow the progression of renal disease. Protect non dominant arm for AV access. Hypertension Blood pressure is better controlled. Goal is to maintain systolic blood pressure between 130 and 150 mm Hg. Based on the blood pressure nifedipine can be increased if needed. Avoid rapid lowering of blood pressure or intravenous agents at this time. Keep on low sodium diet. Anemia. Due to the combination of iron deficiency and erythropoietin deficiency. Replace iron orally and follow hemoglobin. Metabolic acidosis in the setting of CKD. Agree with sodium bicarbonate for now. Time Spent With Patient Time: Total time managing care of this patient today ____ minutes. Progress Note: Quality Stroke Does the patient have a stroke diagnosis?: No
--- NOTE | 2022-07-08 12:43 | PC.NURSE ---
pt A&O, refused noon POC, unable to give insulin coverage. MD notified.
--- NOTE | 2022-07-08 16:35 | PC.NURSE ---
pt refused 1630 POC.
[2022-07-08] MEDS: Sodium Bicarbonate 650 MG TABLET PO (19:20)
[2022-07-09] MEDS: HYDROmorphone HCl 0.5 MG/0.5 ML SYRINGE IVPUSH ×5 (00:11→19:56)
[2022-07-09 03:04] VITALS: BP 140/70; PULSE 84; RESP 20; TEMP 36.3; O2SAT 97
--- NOTE | 2022-07-09 06:18 | PC.NURSE ---
Pt has been asking for the IV dilauded for her leg pain. PO pain meds was offered but pt refused. Educated on the effects of the IV dilauded.
[2022-07-09 07:48] VITALS: BP 179/102; PULSE 81; RESP 20; TEMP 36.6; O2SAT 98
[2022-07-09] MEDS: ondansetron HCL 4 MG/2 ML VIAL IVPUSH (09:08)
[2022-07-09] MEDS: Furosemide 40 MG/4 ML VIAL 80 MG IVPUSH ×2 (09:11→18:04)
[2022-07-09] MEDS: carvediloL 12.5 MG TABLET 25 MG PO ×2 (09:12→19:57)
[2022-07-09] MEDS: Apixaban 5 MG TABLET 10 MG PO ×2 (09:12→20:32)
[2022-07-09] MEDS: hydrALAZINE HCl 25 MG TABLET PO (09:12)
--- NOTE | 2022-07-09 09:39 | P.PNIM_ITS ---
Subjective Subjective Date of Service: 07/09/22 Interval History: BP still high swelling improving though RLE more swollen than LLE dyspnea improved Review of Systems Review of Systems: Yes all other systems are reviewed and are negative Physical Exam Vital Signs: Vital Signs: Last Vital Signs Temp 97.9 F 07/09/22 07:48 Pulse 81 07/09/22 07:48 Resp 20 07/09/22 07:48 BP 179/102 H 07/09/22 07:48 Pulse Ox 98 07/09/22 07:48 O2 Del Method Room Air 07/09/22 07:48 BMI result Body Mass Index 30.7 Gen: in no acute distress HEENT: sclera anicteric, moist mucus membranes Neck: supple Lungs: clear to auscultation bilaterally Heart: regular rate and rhythm, no murmurs Abd: soft, non-tender, non-distended Ext: 2+ edema RLE, 1+ LLE, s/p R TMTA Skin: warm/well-perfused Neuro: alert and oriented x3, no focal findings Psych: appropriate affect Objective Data Active Medications Acetaminophen (Acetaminophen 325 Mg Tablet) 650 mg PO Q6H PRN PRN Reason: Pain, Mild (Pain Scale 1-3) Apixaban (Apixaban 5 Mg Tablet) 10 mg PO BID [facility] Stop: 07/13/22 21:01 Last Admin: 07/09/22 09:12 Dose: 10 mg Documented By: HERMINIO Aspirin (Aspirin Enteric Coated 81 Mg Tablet.) 81 mg PO DAILY [facility] Last Admin: 07/09/22 09:14 Dose: Not Given Documented By: HERMINIO Non-Admin Reason: Patient Refused Carvedilol (Carvedilol 12.5 Mg Tablet) 25 mg PO BID [facility]; Protocol Last Admin: 07/09/22 09:12 Dose: 25 mg Documented By: HERMINIO Ferrous Sulfate (Ferrous Sulfate 324 Mg Tablet.) 324 mg PO DAILY [facility] Last Admin: 07/09/22 09:15 Dose: Not Given Documented By: HERMINIO Non-Admin Reason: Patient Refused Furosemide (Furosemide 40 Mg/4 Ml Vial) 80 mg IVPUSH BID@0900,1800 [facility]; Protocol Last Admin: 07/09/22 09:11 Dose: 80 mg Documented By: HERMINIO Glucose (Glucose Gel 15 Gm Gel..Gram.) 15 gm PO Q15M PRN; Protocol PRN Reason: per Hypoglycemia Standing Ord. Hydralazine HCl (Hydralazine Hcl 25 Mg Tablet) 25 mg PO TID [facility]; Protocol Last Admin: 07/09/22 09:12 Dose: 25 mg Documented By: HERMINIO Hydromorphone HCl (Hydromorphone Hcl 0.5 Mg/0.5 Ml Syringe) 0.5 mg IVPUSH Q4H PRN; Protocol PRN Reason: severe pain Last Admin: 07/09/22 05:58 Dose: 0.5 mg Documented By: LOC Dextrose (D10) 250 mls @ 750 mls/hr IV Q15M PRN; Protocol PRN Reason: per Hypoglycemia Standing Ord. Insulin Human Lispro (Insulin Lispro 100 Unit/Ml 3 Ml Vial) 0 unit SUBCUT QIDACHS [facility]; Protocol Last Admin: 07/09/22 08:50 Dose: Not Given Documented By: HERMINIO Non-Admin Reason: pt refused Isosorbide Mononitrate (Isosorbide Mononitrate 30 Mg Tab.Er.24h) 30 mg PO DAILY [facility]; Protocol Last Admin: 07/09/22 09:15 Dose: Not Given Documented By: HERMINIO Non-Admin Reason: Patient Refused Melatonin (Melatonin 3 Mg Tablet) 6 mg PO BEDTIME PRN PRN Reason: Insomnia Last Admin: 07/07/22 21:04 Dose: 6 mg Documented By: LOC Nifedipine (Nifedipine Er 30 Mg Tab.Er.24) 30 mg PO DAILY [facility]; Protocol Last Admin: 07/09/22 09:15 Dose: Not Given Documented By: HERMINIO Non-Admin Reason: Patient Refused Omeprazole (Omeprazole 20 Mg Capsule.) 20 mg PO DAILY@0630 [facility] Last Admin: 07/09/22 05:25 Dose: Not Given Documented By: LOC Non-Admin Reason: Patient Refused Ondansetron HCl (Ondansetron Hcl 4 Mg/2 Ml Vial) 4 mg IVPUSH Q8H PRN PRN Reason: Nausea and Vomiting Last Admin: 07/09/22 09:08 Dose: 4 mg Documented By: HERMINIO Oxycodone HCl (Oxycodone Hcl Immed Release 5 Mg Tablet) 5 mg PO Q6H PRN PRN Reason: Pain, Moderate(Pain Scale 4-6) Oxycodone HCl (Oxycodone Hcl Immed Release 5 Mg Tablet) 5 mg PO Q6H PRN PRN Reason: severe pain Pharmacy Consult (Consult Rx Perform Med Rec) 1 each MISCELLANE ONCE PRN PRN Reason: Consult order Sodium Bicarbonate (Sodium Bicarbonate 650 Mg Tablet) 650 mg PO BID [facility] Last Admin: 07/09/22 09:15 Dose: Not Given Documented By: HERMINIO Non-Admin Reason: Patient Refused Sodium Chloride (0.9 % Sodium Chloride Flush 3 Ml Syringe) 3 ml IVFLUSH QSHIFT [facility] Last Admin: 07/08/22 22:53 Dose: 3 ml Documented By: LOC Labs 07/08/22 10:59 07/08/22 10:59 Labs: Laboratory Results - last 24 hr 07/08/22 07/08/22 07/08/22 10:59 10:59 10:59 MCV 82.8 MCH 25.7 L MCHC 31.1 RDW 17.5 H Plt Count 184 MPV 11.6 Absolute Nucleated RBC 0.000 Nucleated RBC % (auto) 0.0 Anion Gap 14 Estim Creat Clear Calc 24.1 Estimated GFR 14 Random Glucose 80 Calcium 8.3 L Iron 34 TIBC 250 % Saturation 14 L Unsat Iron Binding 216 Ferritin B-Natriuretic Peptide 1735 H 07/08/22 10:59 MCV MCH MCHC RDW Plt Count MPV Absolute Nucleated RBC Nucleated RBC % (auto) Anion Gap Estim Creat Clear Calc Estimated GFR Random Glucose Calcium Iron TIBC % Saturation Unsat Iron Binding Ferritin 35 B-Natriuretic Peptide Microbiology Microbiology Results: Microbiology 07/06/22 19:27 Blood Culture - Preliminary Blood - Venous No growth after 48 hours. 07/06/22 19:27 Blood Culture - Preliminary Blood - Venous No growth after 48 hours. Assessment and Plan (1) Acute on chronic systolic and diastolic heart failure, NYHA class 3: Status: Acute Plan d#4 31yo F with HTN, HFrEF, DM2 with retinopathy, mood disorder, PAD s/p R TMTA, CKD4 presenting with MENDIOLA, admitted for HTN emergency/CHF exacerbation also found to have RLE DVT # HTN emergency - given nitropaste + IV labetalol in ED - resumed nifedipine + hydralazine + carvedilol + Imdur with room to increase doses; unclear outpt adherence - increased carvedilol 12.5->25 mg bid - increase hydralazine 25->50 mg tid - monitor BP, may increase nifedipine if needed # acute/chronic HFrEF - diureses with IV furosemide; negative 66509 mL thus far. trend BNP, monitor I/O. Cardiology following: In the most recent echocardiogram, LVEF is 35-40%.? Moderate LVH.? Advanced diastolic dysfunction.? Valves are unremarkable.? Moderate to severe tricuspid regurgitation with pulmonary hypertension.? Small circumferential pericardial effusion. Myocardial perfusion imaging study at [facility] from 2021 reported normal with no fixed reversible defects.? In that study, LVEF was 43% at rest and 48% during stress. - antihypertensives as above # R posterior tibial DVT - changed Lovenox to apixaban 10 mg bid x7d then 5 mg bid [change on 07/14/22] # CKD4 - Nephrology following, monitor SCr with diuresis - sodium bicarbonate for metabolic acidosis # DM2 - muna-dose lispro # anemia of CKD - replete Fe # VTE ppx: apixaban # dispo: TBD Time Spent With Patient Time: Total time managing care of this patient today ____ minutes. Quality Stroke Does the patient have a stroke diagnosis?: No VTE Prior VTE?: No VTE Risk Level:: Medical - moderate - high VTE Device Contraindication: Treatment Not Indicated VTE Drug Contraindication: N/A - Med Ordered
[2022-07-09 09:59] LABS: Anion Gap 14 (12-20); Blood Urea Nitrogen 38 mg/dL (9-16); Calcium 8.4 mg/dL (8.4-10.2); Carbon Dioxide 24 mmol/L (22-29); Chloride 104 mmol/L (96-108); Creatinine Clr Calc Pharmacy 22.8; Estimated Glomerular Filt Rate 13; Glucose Random 149 mg/dL (60-115); Magnesium 1.9 mg/dL (1.6-2.6); Potassium 3.8 mmol/L (3.3-5.1); Sodium 138 mmol/L (135-145)
[2022-07-09 10:05] LABS: B Type Natriuretic Peptide 1786 pg/mL (<100); Hematocrit 25.2 % (37.0-47.0); Hemoglobin 7.9 g/dl (12.0-16.0); Mean Corpuscular HGB Conc 31.3 g/dl (31.0-35.0); Mean Corpuscular Hemoglobin 26.4 pg (27.0-33.0); Mean Corpuscular Volume 84.3 fL (80.0-98.0); Mean Platelet Volume 12.9 fL (9.4-12.3); Platelet Count 181 X10*3/uL (160-400); Red Blood Count 2.99 X10*6/uL (4.20-5.50); Red Cell Distribution Width 17.8 % (11.0-16.0); White Blood Count 3.9 X10*3/uL (4.8-10.8)
[2022-07-09 11:29] VITALS: BP 170/101; PULSE 80; RESP 18; TEMP 36.4; O2SAT 99
--- NOTE | 2022-07-09 11:42 | PC.NURSE ---
pt refused AM and noon POC. pt educated on the importance of glucose checks and coverage should pt needs it. pt verbaliz understanding and adamant on refusing.
--- NOTE | 2022-07-09 13:58 | PM.PNNEP ---
Subjective Subjective Date of Service: 07/10/22 Interval history: Events noted. Blood pressure is still suboptimal. Edema is improved. Physical Exam Vital Signs: Vital Signs: Last Vital Signs Temp 97.6 F 07/09/22 11:29 Pulse 80 07/09/22 11:29 Resp 18 07/09/22 11:29 BP 170/101 H 07/09/22 11:29 Pulse Ox 99 07/09/22 11:29 O2 Del Method Room Air 07/09/22 11:29 BMI result Body Mass Index 30.7 Const: General: comfortable and no acute distress Orientation/consciousness: patient oriented x3 HEENT: Other: Unremarkable Head: Yes normal to inspection Neck: Neck: Yes normal visual inspection Chest: Chest palpation & inspection: normal inspection of the chest Resp: Auscultation: clear to auscultation bilaterally Cardio: Palpation: normal PMI Heart sounds: S1 normal heart sound present, S2 normal heart sound present, Gallop heart sound present S4 gallop, no murmurs and no rubs GI: Palpation (GI): Soft to palpation Back/Spine/Pelvis: Other: unremarkable Skin: General skin exam: no rashes or lesions noted Neuro: General: patient oriented x3 Extrem: Other: partial feet amputation. Psych: Mental Status: mental status grossly normal Objective Data Labs 07/09/22 09:32 07/09/22 09:32 Labs: Laboratory Results - last 24 hr 07/09/22 07/09/22 07/09/22 09:32 09:32 09:32 WBC 3.9 L RBC 2.99 L Hgb 7.9 L Hct 25.2 L MCV 84.3 MCH 26.4 L MCHC 31.3 RDW 17.8 H Plt Count 181 MPV 12.9 H Absolute Nucleated RBC 0.000 Nucleated RBC % (auto) 0.0 Sodium 138 Potassium 3.8 Chloride 104 Carbon Dioxide 24 Anion Gap 14 BUN 38 H Creatinine 3.88 H Estim Creat Clear Calc 22.8 Estimated GFR 13 Random Glucose 149 H Calcium 8.4 Magnesium 1.9 B-Natriuretic Peptide 1786 H Microbiology Microbiology Results: Microbiology 07/06/22 19:27 Blood - Venous Blood Culture - Preliminary No growth after 48 hours. 07/06/22 19:27 Blood - Venous Blood Culture - Preliminary No growth after 48 hours. Procedures Date of Service Date of Service: 07/10/22 Assessment & Plan Assessment and plan (1) Hypertensive emergency: Status: Acute (2) CKD (chronic kidney disease) stage 4, GFR 15-29 ml/min: Status: Acute Plan CKD 4. Marginal improvement in creatinine. No indication for dialysis yet. Goal is to slow the progression of renal disease. Protect non dominant arm for AV access. Hypertension Blood pressure is suboptimal Can increase nifedipine XL to 60 mg daily or hydralazine to 75 mg t.i.d. Goal is to maintain systolic blood pressure between 130 and 150 mm Hg. Based on the blood pressure nifedipine can be increased if needed. Avoid rapid lowering of blood pressure or intravenous agents at this time. Keep on low sodium diet. Anemia. Due to the combination of iron deficiency and erythropoietin deficiency. Replace iron orally and follow hemoglobin. Metabolic acidosis in the setting of CKD. Agree with sodium bicarbonate . Time Spent With Patient Time: Total time managing care of this patient today ____ minutes. Progress Note: Quality Stroke Does the patient have a stroke diagnosis?: No
[2022-07-09] MEDS: hydrALAZINE HCl 50 MG TABLET PO ×2 (15:05→19:57)
[2022-07-09 15:25] VITALS: BP 176/90; PULSE 78; RESP 20; TEMP 36.4; O2SAT 95
[2022-07-09 16:03] LABS: Glucose, Whole Blood 137 mg/dL (60-115)
[2022-07-09] MEDS: 0.9 % Sodium Chloride Flush 3 ML SYRINGE IVFLUSH (18:05)
[2022-07-09 19:10] VITALS: BP 176/96; PULSE 78; RESP 20; TEMP 36.3; O2SAT 98
--- NOTE | 2022-07-09 20:23 | PC.NURSE ---
Addendum entered by Julieta Lam RN 07/09/22 20:55: MD Lopez came up to see Pt and she agreed to take the eliquis. Med given Original Note: Pt refused Blood sugar check, eliquis and sodium bicarb. BP is elevated at 176/97, However she did accept and took her BP meds. MD Granda notified.
--- NOTE | 2022-07-09 20:27 | PM.EVENT ---
Event Note Date of Service: 07/13/22 Event Note: pt refusing her meds including her Eliquis and her Sodium bicarb. she understands the risk. we had extensive conversation w her, but she continues to refuse her meds Time Spent With Patient Time: Total time managing care of this patient today ____ minutes.
[2022-07-10] VITALS (7 sets, daily range): BP systolic 126–186; BP diastolic 50–110; PULSE 79–86; RESP 18–20; TEMP 36.3–37.1; O2SAT 94–99
[2022-07-10] MEDS: HYDROmorphone HCl 0.5 MG/0.5 ML SYRINGE IVPUSH ×6 (00:23→21:21)
[2022-07-10 07:27] LABS: Glucose, Whole Blood 106 mg/dL (60-115)
[2022-07-10] MEDS: carvediloL 12.5 MG TABLET 25 MG PO ×2 (09:11→21:21)
[2022-07-10] MEDS: hydrALAZINE HCl 50 MG TABLET PO (09:11)
[2022-07-10] MEDS: Isosorbide Mononitrate 30 MG TAB.ER.24H PO (09:11)
[2022-07-10] MEDS: 0.9 % Sodium Chloride Flush 3 ML SYRINGE IVFLUSH ×2 (09:12→15:20)
[2022-07-10] MEDS: Aspirin Enteric Coated 81 MG TABLET.DR PO (09:12)
[2022-07-10] MEDS: Furosemide 40 MG/4 ML VIAL 80 MG IVPUSH ×2 (09:12→17:41)
[2022-07-10] MEDS: NIFEdipine ER 60 MG TAB.ER.24 PO (09:12)
--- NOTE | 2022-07-10 10:32 | MHC.CM.PN ---
Per ROUNDS discussion, Patient is still requiring IV Lasix and is not yet medically cleared for dc. Home/resume services is the goal and CM will follow.
[2022-07-10 10:44] LABS: B Type Natriuretic Peptide 1941 pg/mL (<100)
--- NOTE | 2022-07-10 10:45 | HO.PM.IMPN ---
Subjective Subjective Date of Service: 07/10/22 Interval History: refused meds last night headache resolved c/o leg pain orthopnea Review of Systems Review of Systems: Yes all other systems are reviewed and are negative Physical Exam Vital Signs: Vital Signs: Last Vital Signs Temp 97.8 F 07/10/22 08:00 Pulse 83 07/10/22 08:00 Resp 20 07/10/22 08:00 BP 170/81 H 07/10/22 08:00 Pulse Ox 96 07/10/22 08:00 O2 Del Method Room Air 07/10/22 08:00 BMI result Body Mass Index 30.7 Gen: in no acute distress HEENT: sclera anicteric, moist mucus membranes Neck: supple Lungs: clear to auscultation bilaterally Heart: regular rate and rhythm, no murmurs Abd: soft, non-tender, non-distended Ext: 2+ edema RLE, 1+ LLE, s/p R TMTA Skin: warm/well-perfused Neuro: alert and oriented x3, no focal findings Psych: appropriate affect Objective Data Active Medications Acetaminophen (Acetaminophen 325 Mg Tablet) 650 mg PO Q6H PRN PRN Reason: Pain, Mild (Pain Scale 1-3) Aspirin (Aspirin Enteric Coated 81 Mg Tablet.) 81 mg PO DAILY [facility] Last Admin: 07/10/22 09:12 Dose: 81 mg Documented By: DAE Carvedilol (Carvedilol 12.5 Mg Tablet) 25 mg PO BID [facility]; Protocol Last Admin: 07/10/22 09:11 Dose: 25 mg Documented By: DAE Ferrous Sulfate (Ferrous Sulfate 324 Mg Tablet.) 324 mg PO DAILY [facility] Last Admin: 07/10/22 09:12 Dose: Not Given Documented By: DAE Non-Admin Reason: Patient Refused Furosemide (Furosemide 40 Mg/4 Ml Vial) 80 mg IVPUSH BID@0900,1800 [facility]; Protocol Last Admin: 07/10/22 09:12 Dose: 80 mg Documented By: DAE Glucose (Glucose Gel 15 Gm Gel..Gram.) 15 gm PO Q15M PRN; Protocol PRN Reason: per Hypoglycemia Standing Ord. Heparin Sodium (Porcine) (Heparin Sodium,Porcine 5,000 Unit/Ml Vial) 5,000 unit SUBCUT Q12H [facility] Hydralazine HCl (Hydralazine Hcl 50 Mg Tablet) 50 mg PO TID [facility]; Protocol Last Admin: 07/10/22 09:11 Dose: 50 mg Documented By: DAE Hydromorphone HCl (Hydromorphone Hcl 0.5 Mg/0.5 Ml Syringe) 0.5 mg IVPUSH Q4H PRN; Protocol PRN Reason: severe pain Last Admin: 07/10/22 09:11 Dose: 0.5 mg Documented By: DAE Dextrose (D10) 250 mls @ 750 mls/hr IV Q15M PRN; Protocol PRN Reason: per Hypoglycemia Standing Ord. Insulin Human Lispro (Insulin Lispro 100 Unit/Ml 3 Ml Vial) 0 unit SUBCUT QIDACHS [facility]; Protocol Last Admin: 07/10/22 07:56 Dose: Not Given Documented By: DAE Non-Admin Reason: No Insulin Coverage Isosorbide Mononitrate (Isosorbide Mononitrate 30 Mg Tab.Er.24h) 30 mg PO DAILY [facility]; Protocol Last Admin: 07/10/22 09:11 Dose: 30 mg Documented By: DAE Melatonin (Melatonin 3 Mg Tablet) 6 mg PO BEDTIME PRN PRN Reason: Insomnia Last Admin: 07/07/22 21:04 Dose: 6 mg Documented By: LOC Nifedipine (Nifedipine Er 60 Mg Tab.Er.24) 60 mg PO DAILY [facility]; Protocol Last Admin: 07/10/22 09:12 Dose: 60 mg Documented By: DAE Omeprazole (Omeprazole 20 Mg Capsule.Dr) 20 mg PO DAILY@0630 [facility] Last Admin: 07/10/22 04:04 Dose: Not Given Documented By: MIKAYLA Non-Admin Reason: Patient Refused Ondansetron HCl (Ondansetron Hcl 4 Mg/2 Ml Vial) 4 mg IVPUSH Q8H PRN PRN Reason: Nausea and Vomiting Last Admin: 07/09/22 09:08 Dose: 4 mg Documented By: HERMINIO Oxycodone HCl (Oxycodone Hcl Immed Release 5 Mg Tablet) 5 mg PO Q6H PRN PRN Reason: Pain, Moderate(Pain Scale 4-6) Oxycodone HCl (Oxycodone Hcl Immed Release 5 Mg Tablet) 5 mg PO Q6H PRN PRN Reason: severe pain Pharmacy Consult (Consult Rx Perform Med Rec) 1 each MISCELLANE ONCE PRN PRN Reason: Consult order Sodium Bicarbonate (Sodium Bicarbonate 650 Mg Tablet) 650 mg PO BID [facility] Last Admin: 07/10/22 09:12 Dose: Not Given Documented By: DAE Non-Admin Reason: Patient Refused Sodium Chloride (0.9 % Sodium Chloride Flush 3 Ml Syringe) 3 ml IVFLUSH QSHIFT [facility] Last Admin: 07/10/22 09:12 Dose: 3 ml Documented By: DAE Labs 07/09/22 09:32 07/09/22 09:32 Labs: Laboratory Results - last 24 hr 07/09/22 07/10/22 07/10/22 15:59 07:12 10:02 POC Glucose 137 H 106 B-Natriuretic Peptide 1941 H ITS Impressions Venous Duplex 07/06/22 16:34 IMPRESSION: Possible nonocclusive thrombus in the right posterior tibial vein. Duplex Scan Lower Extremity Artery 07/06/22 16:41 IMPRESSION: No hemodynamically significant stenosis in the right lower extremity. Tibia/Fibula X-Ray 07/06/22 18:30 IMPRESSION: Diffuse soft tissue swelling. No fracture or malalignment. Abdomen/Pelvis CT 07/06/22 19:21 IMPRESSION: 1. No acute intracranial process seen. 2. Bilateral pulmonary nodules are stable. Left lower lobe consolidation has resolved. 3. Moderate right and small left pleural effusion. 4. Small pericardial effusion. 5. Diffuse abdominal wall edema. 6. High attenuation urine in the bladder. Correlate with urine analysis. 7. Mild constipation without obstruction. Chest CT 07/06/22 19:21 IMPRESSION: 1. No acute intracranial process seen. 2. Bilateral pulmonary nodules are stable. Left lower lobe consolidation has resolved. 3. Moderate right and small left pleural effusion. 4. Small pericardial effusion. 5. Diffuse abdominal wall edema. 6. High attenuation urine in the bladder. Correlate with urine analysis. 7. Mild constipation without obstruction. Head CT 07/06/22 19:21 IMPRESSION: 1. No acute intracranial process seen. 2. Bilateral pulmonary nodules are stable. Left lower lobe consolidation has resolved. 3. Moderate right and small left pleural effusion. 4. Small pericardial effusion. 5. Diffuse abdominal wall edema. 6. High attenuation urine in the bladder. Correlate with urine analysis. 7. Mild constipation without obstruction. Venous Duplex 07/09/22 09:50 IMPRESSION: No DVT demonstrated in the right lower extremity. Assessment and Plan (1) Acute on chronic systolic and diastolic heart failure, NYHA class 3: Status: Acute Plan d#5 31yo F with HTN, HFrEF, DM2 with retinopathy, mood disorder, PAD s/p R TMTA, CKD4 presenting with [place], admitted for HTN emergency/CHF exacerbation # HTN emergency - given nitropaste + IV labetalol in ED - resumed nifedipine + hydralazine + carvedilol + Imdur with room to increase doses; unclear outpt adherence - increased carvedilol 12.5->25 mg bid - increased hydralazine 25->50 mg tid - increase nifedipine 30->60 mg daily - monitor BP # acute/chronic HFrEF - diureses with IV furosemide; negative 5317 mL thus far. trend BNP, monitor I/O. Cardiology following: In the most recent echocardiogram, LVEF is 35-40%.? Moderate LVH.? Advanced diastolic dysfunction.? Valves are unremarkable.? Moderate to severe tricuspid regurgitation with pulmonary hypertension.? Small circumferential pericardial effusion. Myocardial perfusion imaging study at [facility] from 2021 reported normal with no fixed reversible defects.? In that study, LVEF was 43% at rest and 48% during stress. - antihypertensives as above # RLE swelling - no DVT on last duplex, will d/c apixaban # CKD4 - Nephrology following, monitor SCr with diuresis - sodium bicarbonate for metabolic acidosis # DM2 - muna-dose lispro # anemia of CKD - replete Fe # VTE ppx: UFH # dispo: home with VNA once BP + volume contrlled Time Spent With Patient Time: Total time managing care of this patient today ___40_ minutes. Quality Stroke Does the patient have a stroke diagnosis?: No VTE Prior VTE?: No VTE Risk Level:: Medical - moderate - high VTE Device Contraindication: Treatment Not Indicated VTE Drug Contraindication: N/A - Med Ordered
[2022-07-10 11:19] LABS: Glucose, Whole Blood 133 mg/dL (60-115)
[2022-07-10 11:38] LABS: Anion Gap 14 (12-20); Blood Urea Nitrogen 36 mg/dL (9-16); Calcium 8.5 mg/dL (8.4-10.2); Carbon Dioxide 25 mmol/L (22-29); Chloride 101 mmol/L (96-108); Creatinine Clr Calc Pharmacy 23.3; Estimated Glomerular Filt Rate 14; Glucose Random 128 mg/dL (60-115); Magnesium 1.9 mg/dL (1.6-2.6); Potassium 3.9 mmol/L (3.3-5.1); Sodium 136 mmol/L (135-145)
--- NOTE | 2022-07-10 12:04 | PM.PNNEP ---
Subjective Subjective Date of Service: 07/11/22 Interval history: Events noted. Blood pressure remains suboptimal. There seems to be an issue with compliance. Physical Exam Vital Signs: Vital Signs: Last Vital Signs Temp 97.9 F 07/10/22 11:40 Pulse 86 07/10/22 11:40 Resp 20 07/10/22 11:40 BP 186/90 H 07/10/22 11:51 Pulse Ox 99 07/10/22 11:40 O2 Del Method Room Air 07/10/22 11:40 BMI result Body Mass Index 30.7 Comfortable Neck is supple Lung: Air entry equal Heart: S1,S2, normal. No rub Abd: Soft. BS + NS : Alert.No asterexis Ext: No edema Const: General: comfortable and no acute distress Orientation/consciousness: patient oriented x3 HEENT: Other: Unremarkable Head: Yes normal to inspection Neck: Neck: Yes normal visual inspection Chest: Chest palpation & inspection: normal inspection of the chest Resp: Auscultation: clear to auscultation bilaterally Cardio: Palpation: normal PMI Heart sounds: S1 normal heart sound present, S2 normal heart sound present, Gallop heart sound present S4 gallop, no murmurs and no rubs GI: Palpation (GI): Soft to palpation Back/Spine/Pelvis: Other: unremarkable Skin: General skin exam: no rashes or lesions noted Neuro: General: patient oriented x3 Extrem: Other: partial feet amputation. Psych: Mental Status: mental status grossly normal Objective Data Labs 07/09/22 09:32 07/10/22 10:02 Labs: Laboratory Results - last 24 hr 07/09/22 07/10/22 07/10/22 15:59 07:12 10:02 Sodium 136 Potassium 3.9 Chloride 101 Carbon Dioxide 25 Anion Gap 14 BUN 36 H Creatinine 3.79 H Estim Creat Clear Calc 23.3 Estimated GFR 14 POC Glucose 137 H 106 Random Glucose 128 H Calcium 8.5 Magnesium 1.9 B-Natriuretic Peptide 07/10/22 07/10/22 10:02 11:08 Sodium Potassium Chloride Carbon Dioxide Anion Gap BUN Creatinine Estim Creat Clear Calc Estimated GFR POC Glucose 133 H Random Glucose Calcium Magnesium B-Natriuretic Peptide 1941 H Microbiology Microbiology Results: Microbiology 07/06/22 19:27 Blood - Venous Blood Culture - Preliminary No growth after 48 hours. 07/06/22 19:27 Blood - Venous Blood Culture - Preliminary No growth after 48 hours. Procedures Date of Service Date of Service: 07/11/22 Assessment & Plan Assessment and plan (1) Hypertensive emergency: Status: Acute (2) CKD (chronic kidney disease) stage 4, GFR 15-29 ml/min: Status: Acute Plan CKD 4. No indication for dialysis yet. Goal is to slow the progression of renal disease. Protect non dominant arm for AV access. Hypertension Blood pressure is suboptimal Agree with current regimen. Needs to emphasis on compliance. Next step would be to increase hydralazine further. Goal is to maintain systolic blood pressure between 130 and 150 mm Hg. Based on the blood pressure nifedipine can be increased if needed. Avoid rapid lowering of blood pressure or intravenous agents at this time. Keep on low sodium diet. Anemia. Due to the combination of iron deficiency and erythropoietin deficiency. Replace iron orally and follow hemoglobin. Metabolic acidosis in the setting of CKD. Agree with sodium bicarbonate . Time Spent With Patient Time: Total time managing care of this patient today ____ minutes. Progress Note: Quality Stroke Does the patient have a stroke diagnosis?: No
[2022-07-10] MEDS: hydrALAZINE HCl 25 MG TABLET PO (12:42)
[2022-07-10] MEDS: hydrALAZINE HCl 25 MG TABLET 75 MG PO ×2 (14:39→21:20)
[2022-07-10] MEDS: Melatonin 3 MG TABLET 6 MG PO (21:20)
[2022-07-11] MEDS: 0.9 % Sodium Chloride Flush 3 ML SYRINGE IVFLUSH ×2 (01:23→08:10)
[2022-07-11] MEDS: HYDROmorphone HCl 0.5 MG/0.5 ML SYRINGE IVPUSH ×3 (01:23→09:33)
[2022-07-11 03:10] VITALS: BP 118/57; PULSE 79; RESP 18; TEMP 36.4; O2SAT 93
[2022-07-11 07:20] VITALS: BP 122/60; PULSE 78; RESP 20; TEMP 37; O2SAT 95
[2022-07-11 07:30] LABS: Glucose, Whole Blood 170 mg/dL (60-115)
[2022-07-11] MEDS: NIFEdipine ER 60 MG TAB.ER.24 PO (08:10)
[2022-07-11] MEDS: Furosemide 40 MG/4 ML VIAL 80 MG IVPUSH (08:10)
[2022-07-11] MEDS: Aspirin Enteric Coated 81 MG TABLET.DR PO (08:10)
[2022-07-11] MEDS: Isosorbide Mononitrate 30 MG TAB.ER.24H PO (08:10)
[2022-07-11] MEDS: hydrALAZINE HCl 25 MG TABLET 75 MG PO (08:10)
[2022-07-11] MEDS: carvediloL 12.5 MG TABLET 25 MG PO (08:10)
--- NOTE | 2022-07-11 09:43 | P.PNNP_ITS ---
Subjective Subjective Date of Service: 08/09/22 Interval history: Events noted. BP is better today Physical Exam Vital Signs: Vital Signs: Last Vital Signs Temp 98.6 F 07/11/22 07:20 Pulse 78 07/11/22 07:20 Resp 20 07/11/22 07:20 BP 122/60 07/11/22 07:20 Pulse Ox 95 07/11/22 07:20 O2 Del Method Room Air 07/11/22 07:20 BMI result Body Mass Index 30.7 Const: General: comfortable and no acute distress Orientation/cons ciousness: patient oriented x3 HEENT: Other: Unremarkable Head: Yes normal to inspection Neck: Neck: Yes normal visual inspection Chest: Chest palpation & inspection: normal inspection of the chest Resp: Auscultation: clear to auscultation bilaterally Cardio: Palpation: normal PMI Heart sounds: S1 normal heart sound present, S2 normal heart sound present, Gallop heart sound present S4 gallop, no murmurs and no rubs GI: Palpation (GI): Soft to palpation Back/Spine/Pelvis: Other: unremarkable Skin: General skin exam: no rashes or lesions noted Neuro: General: patient oriented x3 Extrem: Other: partial feet amputation. Psych: Mental Status: mental status grossly normal Objective Data Labs 07/09/22 09:32 07/10/22 10:02 Labs: Laboratory Results - last 24 hr 07/10/22 07/10/22 07/10/22 10:02 10:02 11:08 Sodium 136 Potassium 3.9 Chloride 101 Carbon Dioxide 25 Anion Gap 14 BUN 36 H Creatinine 3.79 H Estim Creat Clear Calc 23.3 Estimated GFR 14 POC Glucose 133 H Random Glucose 128 H Calcium 8.5 Magnesium 1.9 B-Natriuretic Peptide 1941 H 07/11/22 07:26 Sodium Potassium Chloride Carbon Dioxide Anion Gap BUN Creatinine Estim Creat Clear Calc Estimated GFR POC Glucose 170 H Random Glucose Calcium Magnesium B-Natriuretic Peptide Microbiology Microbiology Results: Microbiology 07/06/22 19:27 Blood - Venous Blood Culture - Preliminary No growth after 48 hours. 07/06/22 19:27 Blood - Venous Blood Culture - Preliminary No growth after 48 hours. Procedures Date of Service Date of Service: 08/09/22 Assessment & Plan Assessment and plan (1) Hypertensive emergency: Status: Resolved (2) CKD (chronic kidney disease) stage 4, GFR 15-29 ml/min: Status: Inactive Plan CKD 4. No indication for dialysis Goal is to slow the progression of renal disease. Protect non dominant arm for AV access. Hypertension Blood pressure is better controlled Agree with current regimen. Need to emphasis on compliance. Goal is to maintain systolic blood pressure between 120 and 140 mm Hg. Based on the blood pressure nifedipine can be increased if needed. Avoid rapid lowering of blood pressure or intravenous agents at this time. Keep on low sodium diet. Anemia. Due to the combination of iron deficiency and erythropoietin deficiency. Replace iron orally and follow hemoglobin. Metabolic acidosis in the setting of CKD. Agree with sodium bicarbonate . Time Spent With Patient Time: Total time managing care of this patient today ____ minutes. Progress Note: Quality Stroke Does the patient have a stroke diagnosis?: No
--- NOTE | 2022-07-11 09:57 | PM.DS ---
DS: Providers Provider Date of Service: 07/11/22 Date of admission: 07/07/22 08:57 Date of discharge: 07/11/22 Primary care physician: Abdno Beard MD Consults: 07/07/22 07:46 Consult to Cardiology Routine Consulting Provider: [facility] [place] Cardiovascular Services Reason for consultation: HTN uregncy, HFrEF 07/07/22 08:51 Consult to Nephrology Routine Consulting Provider: [facility] 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 Patient states it has been ongoing for the last 2-3 days.? States she feels like there is fluid in her lungs and has dyspnea worse with ambulation.?Endorses orthopnea.?Patient also started having right lower extremity pain about 2-3 days prior to presentation.? Right upper extremity swelling was noted by fiance which prompted ER visit.? Patient states that she does have headaches every time her blood pressure is elevated although she states she is compliant with her home antihypertensives. Denies fever, chills, cough, palpitations, chest discomfort, abdominal pain, changes in urinary or bowel habits. In the emergency department, patient's blood pressure was found to be elevated and she was given IV labetalol and IV Lasix This is a 31yo F with HTN, HFrEF, DM2 with retinopathy, mood disorder, PAD s/p R TMTA, and CKD4 presenting with MENDIOLA who was admitted for HTN emergency/CHF exacerbation. Hospital course by problem: # HTN emergency - given nitropaste + IV labetalol in ED - continued Imdur 30 mg daily - increased carvedilol 12.5->25 mg bid - increased hydralazine 25->75 mg tid - increase nifedipine 30->60 mg daily - BP finally controlled and pt discharged on the above regimen # acute/chronic HFrEF - diureses with IV furosemide; negative 7680 mL cumulatively. Cardiology consulted and per prior cardiac workup: In the most recent echocardiogram, LVEF is 35-40%.? Moderate LVH.? Advanced diastolic dysfunction.? Valves are unremarkable.? Moderate to severe tricuspid regurgitation with pulmonary hypertension.? Small circumferential pericardial effusion. Myocardial perfusion imaging study at [facility] from 2021 reported normal with no fixed reversible defects.? In that study, LVEF was 43% at rest and 48% during stress. - antihypertensives as above - discharged on torsemide 40 mg bid and should see Cardiology in 1-2 weeks # RLE swelling - initial Duplex suggested possible posterior tibila vein DVT for which she was started on apixaban but repeat Duplex was negative # CKD4 - Nephrology following, monitored SCr with diuresis - continued on sodium bicarbonate for metabolic acidosis - will need outpatient Nephrology follow-up and repeat BMP in 1 week She was discharged home with VNA services for medication coordination and BP monitoring. Unfortunately, nonadherence has been an issue with her in the past. Time Spent with Patient Time attestation: Total time managing care of this patient today ___40 minutes. Discharge coordination time: Greater than 30 minutes Quality: Safe Use of Opioids Does Pt have an Active Cancer Diagnosis on the Problem List?: No Quality: Stroke Does the patient have a stroke diagnosis?: No Physical Exam Vital Signs: Vital Signs: Last Vital Signs Temp 98.6 F 07/11/22 07:20 Pulse 78 07/11/22 07:20 Resp 20 07/11/22 07:20 BP 122/60 07/11/22 07:20 Pulse Ox 95 07/11/22 07:20 O2 Del Method Room Air 07/11/22 07:20 BMI result Body Mass Index 30.7 Gen: in no acute distress HEENT: sclera anicteric, moist mucus membranes Neck: supple Lungs: clear to auscultation bilaterally Heart: regular rate and rhythm, no murmurs Abd: soft, non-tender, non-distended Ext: trace pitting edema, s/p R TMTA Skin: warm/well-perfused Neuro: alert and oriented x3, no focal findings Psych: appropriate affect DS: Data Data Completed and Pending Completed studies during hospitalization [Text1]: \ Laboratory Results WBC 3.9 X10*3/uL (4.8-10.8) L 07/09/22 09:32 RBC 2.99 X10*6/uL (4.20-5.50) L 07/09/22 09:32 Hgb 7.9 g/dl (12.0-16.0) L 07/09/22 09:32 Hct 25.2 % (37.0-47.0) L 07/09/22 09:32 MCV 84.3 fL (80.0-98.0) 07/09/22 09:32 MCH 26.4 pg (27.0-33.0) L 07/09/22 09:32 MCHC 31.3 g/dl (31.0-35.0) 07/09/22 09:32 RDW 17.8 % (11.0-16.0) H 07/09/22 09:32 Plt Count 181 X10*3/uL (160-400) 07/09/22 09:32 MPV 12.9 fL (9.4-12.3) H 07/09/22 09:32 Immature Gran % (Auto) 0.2 % (0.0-0.4) 07/07/22 06:20 Neut % (Auto) 75.2 % (45-73) H 07/07/22 06:20 Lymph % (Auto) 15.7 % (20-40) L 07/07/22 06:20 [place] % (Auto) 6.3 % (2-11) 07/07/22 06:20 Eos % (Auto) 1.9 % (0-4) 07/07/22 06:20 Baso % (Auto) 0.7 % (0-2) 07/07/22 06:20 Lymph # (Auto) 0.7 X10*3/uL (1.2-4.9) L 07/07/22 06:20 [place] # (Auto) 0.3 X10*3/uL (0.1-1.2) 07/07/22 06:20 Eos # (Auto) 0.1 X10*3/uL (0.0-0.4) 07/07/22 06:20 Baso # (Auto) 0.0 X10*3/uL (0.0-0.2) 07/07/22 06:20 Abs Immat Gran (auto) 0.01 X10*3/uL (0.00-0.03) 07/07/22 06:20 Absolute Neuts (auto) 3.1 x10*3/uL (2.0-8.3) 07/07/22 06:20 Absolute Nucleated RBC 0.000 X10*3/uL (0.0-0.012) 07/09/22 09:32 Nucleated RBC % (auto) 0.0 /100WBC (0.0-0.2) 07/09/22 09:32 PT 13.0 SEC (10.0-13.1) 07/06/22 17:34 INR 1.1 (0.9-1.1) 07/06/22 17:34 APTT 30.6 SEC (26.0-36.4) 07/06/22 17:34 D-Dimer High Sensitivty 977 NG/ML 07/06/22 17:34 Sodium 136 mmol/L (135-145) 07/10/22 10:02 Potassium 3.9 mmol/L (3.3-5.1) 07/10/22 10:02 Chloride 101 mmol/L (96-108) 07/10/22 10:02 Carbon Dioxide 25 mmol/L (22-29) 07/10/22 10:02 Anion Gap 14 (12-20) 07/10/22 10:02 BUN 36 mg/dL (9-16) H 07/10/22 10:02 Creatinine 3.79 mg/dL (0.5-1.4) H 07/10/22 10:02 Estim Creat Clear Calc 23.3 07/10/22 10:02 Estimated GFR 14 07/10/22 10:02 POC Glucose 170 mg/dL (60-115) H 07/11/22 07:26 Random Glucose 128 mg/dL (60-115) H 07/10/22 10:02 Estimat Average Glucose 137 mg/dL 07/07/22 06:20 Hemoglobin A1c % 6.4 % 07/07/22 06:20 Lactic Acid 0.8 mmol/L (0.5-2.0) 07/06/22 19:27 Calcium 8.5 mg/dL (8.4-10.2) 07/10/22 10:02 Magnesium 1.9 mg/dL (1.6-2.6) 07/10/22 10:02 Iron 34 mcg/dL (30-160) 07/08/22 10:59 TIBC 250 mcg/dL (228-428) 07/08/22 10:59 % Saturation 14 % (15-50) L 07/08/22 10:59 Unsat Iron Binding 216 ug/dL 07/08/22 10:59 Ferritin 35 ng/mL (10-122) 07/08/22 10:59 Total Bilirubin 1.0 mg/dL (0.0-1.0) 07/06/22 20:05 AST 13 U/L (5-31) 07/06/22 20:05 ALT 15 U/L (0-31) 07/06/22 20:05 Alkaline Phosphatase 93 U/L (39-117) 07/06/22 20:05 B-Natriuretic Peptide 1941 pg/mL (<100) H 07/10/22 10:02 Total Protein 6.3 g/dL (6.5-8.0) L 07/06/22 20:05 Albumin 3.0 g/dL (3.5-5.0) L 07/06/22 20:05 Triglycerides Cancelled 07/07/22 06:20 Cholesterol Cancelled 07/07/22 06:20 LDL Cholesterol, Calc Cancelled 07/07/22 06:20 HDL Cholesterol Cancelled 07/07/22 06:20 Beta HCG, Quant < 2 mIU/mL 07/06/22 20:05 Urine Color Yellow 07/06/22 20:52 Urine Appearance Clear 07/06/22 20:52 Urine pH 6.0 (5.0-9.0) 07/06/22 20:52 Ur Specific [place] 1.015 (1.005-1.025) 07/06/22 20:52 Urine Protein >=1000 (4+) mg/dL (Neg-Trace) H 07/06/22 20:52 Urine Glucose (UA) 250 mg/dL (Negative) H 07/06/22 20:52 Urine Ketones Negative mg/dL (Negative) 07/06/22 20:52 Urine Blood Trace (Negative) H 07/06/22 20:52 Urine Nitrite Negative (Negative) 07/06/22 20:52 Ur Leukocyte Esterase Negative (Negative) 07/06/22 20:52 Urine RBC 3-5 /HPF (0-2) H 07/06/22 20:52 Urine WBC 0-5 /HPF (0-5) 07/06/22 20:52 Ur Squamous Epith Cells 0-2 /HPF (0-2) 07/06/22 20:52 Urine Bacteria 4+ (None Seen) 07/06/22 20:52 Hyaline Casts 0-2 /LPF (0-2) 07/06/22 20:52 Urine Opiates Screen Not Detected (Not Detect) 07/06/22 20:52 Urine Fentanyl Screen Not Detected (Not Detect) 07/06/22 20:52 Ur Barbiturates Screen Not Detected (Not Detect) 07/06/22 20:52 Ur Phencyclidine Scrn Not Detected (Not Detect) 07/06/22 20:52 Ur Amphetamines Screen Not Detected (Not Detect) 07/06/22 20:52 U Benzodiazepines Scrn Not Detected (Not Detect) 07/06/22 20:52 Urine Cocaine Screen Not Detected (Not Detect) 07/06/22 20:52 U Marijuana (THC) Screen Not Detected (Not Detect) 07/06/22 20:52 Acetone, Qual Negative (Negative) 07/06/22 20:05 Impressions Duplex Scan Lower Extremity Artery 07/06/22 16:41 IMPRESSION: No hemodynamically significant stenosis in the right lower extremity. Tibia/Fibula X-Ray 07/06/22 18:30 IMPRESSION: Diffuse soft tissue swelling. No fracture or malalignment. Abdomen/Pelvis CT 07/06/22 19:21 IMPRESSION: 1. No acute intracranial process seen. 2. Bilateral pulmonary nodules are stable. Left lower lobe consolidation has resolved. 3. Moderate right and small left pleural effusion. 4. Small pericardial effusion. 5. Diffuse abdominal wall edema. 6. High attenuation urine in the bladder. Correlate with urine analysis. 7. Mild constipation without obstruction. Chest CT 07/06/22 19:21 IMPRESSION: 1. No acute intracranial process seen. 2. Bilateral pulmonary nodules are stable. Left lower lobe consolidation has resolved. 3. Moderate right and small left pleural effusion. 4. Small pericardial effusion. 5. Diffuse abdominal wall edema. 6. High attenuation urine in the bladder. Correlate with urine analysis. 7. Mild constipation without obstruction. Head CT 07/06/22 19:21 IMPRESSION: 1. No acute intracranial process seen. 2. Bilateral pulmonary nodules are stable. Left lower lobe consolidation has resolved. 3. Moderate right and small left pleural effusion. 4. Small pericardial effusion. 5. Diffuse abdominal wall edema. 6. High attenuation urine in the bladder. Correlate with urine analysis. 7. Mild constipation without obstruction. Venous Duplex 07/09/22 09:50 IMPRESSION: No DVT demonstrated in the right lower extremity. Labs on day of discharge: Laboratory Results - last 24 hr 07/10/22 07/10/22 07/10/22 10:02 10:02 11:08 Sodium 136 Potassium 3.9 Chloride 101 Carbon Dioxide 25 Anion Gap 14 BUN 36 H Creatinine 3.79 H Estim Creat Clear Calc 23.3 Estimated GFR 14 POC Glucose 133 H Random Glucose 128 H Calcium 8.5 Magnesium 1.9 B-Natriuretic Peptide 1941 H 07/11/22 07:26 Sodium Potassium Chloride Carbon Dioxide Anion Gap BUN Creatinine Estim Creat Clear Calc Estimated GFR POC Glucose 170 H Random Glucose Calcium Magnesium B-Natriuretic Peptide Preliminary micro results at discharge 07/06/22 19:27 Blood Culture - Preliminary Blood - Venous No growth after 48 hours. 07/06/22 19:27 Blood Culture - Preliminary Blood - Venous No growth after 48 hours. Discharge Plan Discharge Anticipated Discharge Date/Time: 07/11/22 09:47 Patient Disposition: Home Health Service Discharge Diagnosis: hypertensive emergency, CHF exacerbation, chronic kidney disease stage 4 Referrals: Abdon Beard MD [Primary Care Provider] - 1 Week Ovidio Walsh MD [Physician] - 2 Weeks Brandyn Bhardwaj MD [Physician] - 1 Week Discharge Medications: New carvedilol 12.5 mg Tablet 25 mg PO BID Qty: 60 0RF Protocol: Hold for SBP/HR < HOLD for SBP < : 90 HOLD for HR < : 60 hydralazine 25 mg Tablet 75 mg PO TID Qty: 270 0RF Protocol: Hold for SBP< HOLD for SBP < : 90 nifedipine 60 mg Tablet Extended Release 24hr 60 mg PO DAILY Qty: 30 0RF Protocol: Hold for SBP< HOLD for SBP < : 90 torsemide 40 mg tablet 40 mg PO BID@0630,1630 Qty: 60 0RF Continued acetaminophen 325 mg tablet 650 mg PO Q4H PRN (Reason: Pain) aspirin 81 mg tablet,delayed release (DR/EC) 1 tab PO DAILY pantoprazole 40 mg tablet,delayed release (DR/EC) 1 tab PO DAILY@0630 insulin aspart U-100 [Novolog FlexPen U-100 Insulin] 100 unit/mL (3 mL) insulin pen 2 - 10 unit subcut TID Levemir FlexTouch U-100 Insuln 100 unit/mL (3 mL) insulin pen 8 unit subcut BEDTIME isosorbide mononitrate 30 mg tablet extended release 24 hr 30 mg PO DAILY Qty: 30 0RF oxycodone 5 mg tablet 5 mg PO Q6H PRN (Reason: severe pain) sodium bicarbonate 650 mg Tablet 650 mg PO BID Qty: 60 0RF docusate sodium 100 mg capsule 100 mg PO DAILY PRN (Reason: constipation) ferrous fumarate [Ferrocite] 324 mg (106 mg iron) tablet 324 mg PO DAILY Discontinued carvedilol 3.125 mg Tablet 6.5 mg PO BID Qty: 60 0RF Protocol: Hold for SBP/HR < HOLD for SBP < : 90 HOLD for HR < : 60 nifedipine 30 mg tablet extended release 24hr 30 mg PO DAILY hydralazine 50 mg tablet 50 mg PO BID torsemide 20 mg Tablet 20 mg PO BEDTIME Qty: 30 0RF Protocol: Hold for SBP< HOLD for SBP < : 90 torsemide 20 mg Tablet 40 mg PO DAILY Qty: 60 0RF Protocol: Hold for SBP< HOLD for SBP < : 90 Discharge Orders: Discharge Order (Routine); Ordered 07/11/22 Ordered By: Paul Diane Diet: Diabetic diet Activity on Discharge: As tolerated Stand Alone Forms: Patient Portal Discharge page Other Ambulatory Orders: Basic Metabolic Panel (Routine) Timeframe: 1 Week Facility: [facility] - Location: Laboratory Ordered By: Paul Diane Care Plan Goals: kidney health cardiac health BP control Health Concerns: hypertensive emergency * Take blood pressure medications as prescribed: - carvedilol 25 mg twice daily - isosorbide mononitrate 30 mg once daily - nifedipine 60 mg once daily - hydralazine 75 mg three times daily * Low-sodium diabetic diet CHF exacerbation * Take blood pressure medications as above * Also take 40 mg of torsemide twice daily * Low-sodium diet: less than 2000 mg of sodium daily. Weigh yourself daily and call your doctor if your weight goes up by more than 3 lb/day or 5 lb/week. * Follow up with Cardiology in 1-2 weeks chronic kidney disease stage 4 * avoid nephrotoxins like NSAIDs * control blood pressure and diabetes * take sodium bicarbonate 650 mg twice daily * check labs (BMP) in 1 week * follow up with Nephrology in 2 weeks Please follow up with your primary care doctor within 1 week. Return to the hospital if you experience recurrent or worsening symptoms. Plan of Treatment: as above Assessment: See Discharge Summary. Patient Instructions: Heart Failure (GEN)
--- NOTE | 2022-07-11 10:14 | W.MHC.F2F ---
Service Date Service Date: 07/11/22 Encounter Date of encounter: 07/11/22 Reasons for Services Signs and symptoms assessed: BP control CHF Reason for detention: medication management, medication treatment, teach disease management and other (CHF teaching, BP monitoring) MD Overseeing Care: Abdon Beard Homebound: Leaving the home is medically contraindicated at this time without the asist of a device and/or another person due th the listed conditions above and below. Reason homebound: weakness related to hospital stay and other (labile BP) Certification: Based on the above findings, I certify that this patient is confined to the home and needs intermittent detention care, physical therapy and/or speech therapy, or continues to need occupational therapy. The patient is under my care, and I have initiated the establishment of the plan of care. The patient will be followed by a physician who will periodically review the plan of care. Time Spent With Patient Time: Total time managing care of this patient today ____ minutes.
--- NOTE | 2022-07-11 10:49 | MHC.CM.PN ---
Addendum entered by Vane Houston 07/11/22 14:15: [facility] casework specialist Marylou updated that pt is declining VNA services. Addendum entered by Vane Houston 07/11/22 11:41: Pts brother now lives in [place]. This CM called and spoke with pts sister Josy, she will pick the pt up and bring her home at 1pm today. Original Note: Second IMM 07/10/22. Pt medically cleared for D/C home today, with recommendations for VNA services. referral sent to [facility] per Marylou at [facility]. 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 Pts brother to transport her home. Pt is calling brother to find out what time he can pick her up.
[2022-07-11 10:52] VITALS: BP 128/73; PULSE 78; RESP 20; TEMP 36.8; O2SAT 98
[2022-07-11 10:59] LABS: Glucose, Whole Blood 171 mg/dL (60-115)
[2022-07-11] MEDS: ondansetron HCL 4 MG/2 ML VIAL IVPUSH (12:50)
--- NOTE | 2022-07-20 13:54 | MHC.CM.PN ---
CM met with Patient at bedside and addressed STEPHENS with her, original has been discussed verbally with Patient (she states that she is Blind) and a copy was left with Patient and a copy has been placed on the chart. Patient lives in an apartment with her Fiance and she receives 50 [employer]OVE [employer] hours/week. Home/resume [employer]OVE [employer] is the goal and CM has initiated and will follow for dc planning. Patient has received Moderna/Covid vax [address] and her PCP is Dr. Beard.
== END 2022-07-11 13:40 | disposition home health service (06) | DRG 304 ==
LOC: HO.ED 19:58 → HO.EDOVER 20:14 → HO.IMC 20:24
PROVIDERS: Physician Assistant; Admitting Provider Student in an Organized Health Care Education/Training Program; Emergency Provider Student in an Organized Health Care Education/Training Program; PCP Internal Medicine; Visit Provider Family Medicine
DX: I16.1 Hypertensive emergency (principal); I13.0 Hypertensive heart and chronic kidney disease with heart failure and stage 1 through stage 4 chronic kidney disease, or unspecified chronic kidney disease; I50.43 Acute on chronic combined systolic (congestive) and diastolic (congestive) heart failure; N18.4 Chronic kidney disease, stage 4 (severe); I82.441 Acute embolism and thrombosis of right tibial vein; E11.51 Type 2 diabetes mellitus with diabetic peripheral angiopathy without gangrene; E11.21 Type 2 diabetes mellitus with diabetic nephropathy; D63.1 Anemia in chronic kidney disease; D50.9 Iron deficiency anemia, unspecified; Z79.4 Long term (current) use of insulin; Z79.82 Long term (current) use of aspirin; Z79.899 Other long term (current) drug therapy
CPT/HCPCS: 36415; 70450; 71250; 73590; 74176; 80048; 80053; 80307; 81001; 82009; 82728; 82947; 83036; 83540; 83605; 83735; 83880; 84702; 85025; 85027; 85379; 85610; 85730; 87040; 93926; 93971; 99285; J1170; J1650; J1940; J2405; J3010

== ENCOUNTER 2022-07-19 21:19 | Observation (INO) | payer OTHER, SELFPAY ==
--- NOTE | 2022-07-19 | ECG_ITS ---
Test Reason : nausea Blood Pressure : / mmHG Vent. Rate : 088 BPM Atrial Rate : 088 BPM P-R Int : 156 ms QRS Dur : 142 ms QT Int : 438 ms P-R-T Axes : 056 -10 053 degrees QTc Int : 529 ms Normal sinus rhythm Possible Left atrial enlargement Right bundle branch block Abnormal ECG When compared with ECG of 06-JUN-2022 21:06, No significant change was found Referred By: Helen Pal Electronically Signed By:JASKARAN COOL
--- NOTE | ~2022-07-19 | CT_ITS ---
EXAMINATION: CT HEAD WITHOUT CONTRAST CLINICAL INFORMATION: Hypertensive urgency COMPARISON: 07/07/2019 TECHNIQUE: Contiguous axial imaging was performed from the skull base to vertex without intravenous administration of contrast. This CT examination was performed using dose optimization techniques as appropriate, variously including the following: *Automated exposure control *Adjustment of mA and/or kV according to patient size (this includes techniques or standardized protocols for targeted exams where dose is matched to indication/reason for exam; i.e. extremities or head) *Use of iterative reconstruction technique DLP: 1246 mGy-cm FINDINGS: There is no evidence of acute intracranial hemorrhage or territorial infarction. No abnormal mass effect or midline shift is seen. [place] to white matter differentiation is well preserved. No extra-axial fluid collections are identified. No hydrocephalus. No significant volume loss. There is no abnormal attenuation within the brain parenchyma. No acute osseous or soft tissue abnormality. The mastoid air cells and visualized portions of the paranasal sinuses are well aerated. CT/CT head/brain wo IV con IMPRESSION: No acute intracranial pathology.
--- NOTE | ~2022-07-19 | XR_ITS ---
EXAMINATION: XR CHEST CLINICAL INFORMATION: Chest pain. COMPARISON: CT chest 07/06/2022. Chest radiograph 06/06/2022. TECHNIQUE: Frontal view of the chest was obtained. FINDINGS: Slightly increased size of cardiomediastinal silhouette. Unchanged asymmetric right hilar fullness. Mildly increased interstitial thickening, more noticeable in the right mid and lower lungs. No focal infiltrate. No pleural effusion or pneumothorax. Pulmonary nodules are best seen on recent CT chest from 07/06/2022. No acute osseous abnormalities. Stable mild asymmetric elevation of the right hemidiaphragm. XR/XR chest 1V IMPRESSION: 1. Mildly increased interstitial thickening, nonspecific, could be associated with asthma, bronchitis, reactive airways disease or atypical infections. 2. Slightly increased size of the cardiomediastinal silhouette compared to chest radiograph from 06/06/2022, difficult to accurately compared to recent CT from 07/06/2022 in view of differences in technique. Enlarging pericardial effusion is not excluded, recommend correlation with echocardiogram. 3. Pulmonary nodules are best seen on recent CT chest.
--- NOTE | 2022-07-19 21:42 | ED_ITS ---
HPI - General Adult General Chief complaint: Chest Pain Stated complaint: CHEST PAIN, DIZZINESS Time Seen by Provider: 07/19/22 21:31 Source: patient Mode of arrival: EMS Limitations: no limitations History of Present Illness HPI narrative: Patient comes to the emergency room complaining of chest pain for 4 days. Patient states that she is known to build fluid in her lungs and sometimes as what makes her chest hurts. Also, patient was discharge on July 11 for hypertensive emergency, CHF, chronic kidney disease stage 4. Patient also complaining of severe headache. Patient states that she has been vomiting over last couple of days and she is unable to keep her medications down Related Data Home Medications Medication Instructions Recorded Confirmed acetaminophen 325 mg tablet 650 mg PO Q4H PRN Pain 04/01/22 07/06/22 aspirin 81 mg tablet,delayed 1 tab PO DAILY 04/01/22 07/06/22 release pantoprazole 40 mg tablet,delayed 1 tab PO DAILY@0630 04/01/22 07/06/22 release insulin aspart U-100 100 unit/mL 2 - 10 unit subcut TID 05/10/22 07/06/22 (3 mL) subcutaneous pen (Novolog FlexPen U-100 Insulin aspart) insulin detemir U-100 100 unit/mL 8 unit subcut BEDTIME 05/10/22 07/06/22 (3 mL) subcutaneous pen (Levemir FlexTouch U-100 Insulin) oxycodone 5 mg tablet 5 mg PO Q6H PRN severe pain 06/07/22 07/06/22 docusate sodium 100 mg capsule 100 mg PO DAILY PRN constipation 07/06/22 07/06/22 ferrous fumarate 324 mg (106 mg 324 mg PO DAILY 07/06/22 07/06/22 iron) tablet (Ferrocite) Previous Rx's Medication Instructions Recorded isosorbide mononitrate 30 mg 30 mg PO DAILY #30 tabs 05/14/22 tablet,extended release 24 hr sodium bicarbonate 650 mg tablet 650 mg PO BID #60 tabs 06/12/22 carvedilol 12.5 mg tablet 25 mg PO BID #60 tabs 07/11/22 hydralazine 25 mg tablet 75 mg PO TID #270 tabs 07/11/22 nifedipine 60 mg tablet,extended 60 mg PO DAILY #30 tabs 07/11/22 release 24 hr torsemide 40 mg tablet 40 mg PO BID@0630,1630 #60 tabs 07/11/22 Allergies Allergy/AdvReac Type Severity Reaction Status Date / Time morphine [MORPHINE] Allergy Intermediate Itching Verified 07/06/22 16:17 azithromycin [From Zithromax] Allergy Hives Verified 07/06/22 16:17 gabapentin Allergy Facial Verified 07/06/22 16:17 Swelling tramadol Allergy Facial Verified 07/06/22 16:17 Swelling vancomycin Allergy Hives Verified 07/06/22 16:17 Review of Systems Review of Systems: Constitutional : No Weight loss, No Fever, No Chills, No Night Sweats, No Fatigue, No Malaise ENT/Mouth : No Hearing loss, No Ear Pain, No Nasal Congestion, No Sinus Pain, No Hoarseness, No sore throat, No Rhinorrhea, No Swallowing Difficulty Eyes: No Eye Pain, No Swelling, No Redness, No Foreign Body, No Discharge, No Vision Changes Cardiovascular : Planning of Chest Pain, No SOB, No Dyspnea on Exertion, No Orthopnea, No Edema, No Palpitations Respiratory : No Cough, No Sputum, No Wheezing, No Smoke Exposure, No Dyspnea Gastrointestinal : Complaining of nausea vomiting, No Diarrhea, No Constipation, No abdominal Pain, No Hematochezia, No Melena Genitourinary : no irregular bleeding, No Dysuria, No Urinary Frequency, No Hematuria, No Urinary Incontinence, No Urgency, No Flank Pain, No Urinary Flow Changes, No Hesitancy Musculoskeletal : No joint pain, No Myalgias, No Joint Swelling Skin : No Skin Lesions, No rash Neuro : No Weakness, No Numbness, No Paresthesias, No Loss of Consciousness, No Dizziness, complaining of Headache Psych : No Anxiety/Panic, No Depression, No SI/HI/AH/VH, No Social Issues, Heme/Lymph: No Bruising, No Bleeding,No Lymphadenopathy Endocrine : No Polyuria, No Polydipsia, No Temperature Intolerance PMFSH Past Medical History Medical History Abnormal finding on echocardiogram Acute dyspnea Acute worsening of stage 3 chronic kidney disease MYNOR (acute kidney injury) Anemia Anemia in chronic kidney disease (CKD) Asthma Back pain Blind right eye Bone infection Cellulitis Cellulitis and abscess of foot delivery delivered Chest pain CHF (congestive heart failure) (~06/07/22) CKD (chronic kidney disease) CKD (chronic kidney disease) Depression with anxiety Diabetes Diabetic retinopathy DM foot ulcer Elevated troponin Essential hypertension Fever Generalized edema HTN (hypertension) Hypertension (~06/10/22) Migraine Osteomyelitis PAD (peripheral artery disease) Pleural effusion test positive test positive Sepsis Severe anemia Tachycardia Type 2 diabetes mellitus with hyperglycemia, with long-term current use of insulin Surgical History History of transmetatarsal amputation of foot S/P transmetatarsal amputation of foot Family History Family History Mother Coronary artery disease Myocardial infarction Stroke Diabetes mellitus Father Myocardial infarction Social History Social History Household Members: Significant Other Household Members Other:: Sister, [id number], nephew Housing: Apartment Do you presently have visiting nurse or other home services: Yes (services) Alcohol intake: never Patient Tobacco Use Status: Never used Tobacco Smoked in Last 30 Days: No e-Cigarette/Vaping Use: Never Used Second Hand Smoke Exposure: No Use of substances other than those prescribed or required for medical reasons: No Advance Directives: No Advance Directives Information Provided: No Advance Directives Date on File: 03/08/20 Patient : No service: No Current occupational status: disabled Gender identity: Female Physical Exam ED Vital Signs: Vital Signs - 24 hr 07/19/22 22:32 07/19/22 23:29 07/20/22 05:43 Temperature 97.7 F 97.9 F Pulse Rate 98 89 87 Respiratory Rate 22 H 20 20 Blood Pressure 200/120 H 187/113 H 188/103 H Pulse Oximetry 99 99 93 Oxygen Delivery Method Room Air Room Air Room Air BMI result Body Mass Index 25.8 Medications Administered Discontinued Medications Generic Name Dose Route Start Last Admin Trade Name Freq PRN Reason Stop Dose Admin Hydromorphone HCl 1 mg 07/19/22 22:05 07/19/22 22:30 Hydromorphone Hcl 2 Mg Tablet PO 07/19/22 22:06 Not Given ONCE ONE Hydromorphone HCl 1 mg 07/19/22 23:49 07/19/22 23:59 Hydromorphone Hcl 2 Mg Tablet PO 07/19/22 23:50 1 mg ONCE ONE Administration Labetalol HCl 10 mg 07/19/22 21:41 07/19/22 21:56 Labetalol Hcl 100 Mg/20 Ml Vial IVPUSH 07/19/22 21:42 10 mg ONCE ONE Administration Ondansetron HCl 4 mg 07/19/22 22:05 07/19/22 22:30 Ondansetron Hcl 4 Mg/2 Ml Vial IVPUSH 07/19/22 22:06 4 mg ONCE ONE Administration Prochlorperazine Edisylate 10 mg 07/19/22 23:49 07/19/22 23:59 Prochlorperazine Edisylate 10 Mg/2 Ml Vial IVPUSH 07/19/22 23:50 10 mg ONCE ONE Administration Medical Decision Making Medical Decision Making [facility] Narrative: Patient's labs are at baseline. However, patient still having chest pain, pa tient may have a worsening pericardial effusion. I discussed the patient with Dr. Sewell, it is possible the patient may need an echocardiogram. Patient being admitted under observation status. -Dr. Sewell and I discussed the patient's elevated LFTs, At this time, will not obtain any additional imaging. Admission/Observation Consideration of admission/observation: Escalation of care including admission/observation considered Consult Healthcare Provider Management of the patient was discussed with: Hospitalist Lab Data [facility] Lab Attestation statement: I reviewed the patient's lab results. 07/20/22 04:55 07/19/22 21:48 Labs: Lab Results 07/19/22 07/19/22 07/19/22 Range/Units 12:10 21:48 21:48 WBC (4.8-10.8) X10*3/uL RBC (4.20-5.50) X10*6/uL Hgb (12.0-16.0) g/dl Hct (37.0-47.0) % MCV (80.0-98.0) fL MCH (27.0-33.0) pg MCHC (31.0-35.0) g/dl RDW (11.0-16.0) % Plt Count (160-400) X10*3/uL MPV (9.4-12.3) fL Immature Gran % (Auto) (0.0-0.4) % Neut % (Auto) (45-73) % Lymph % (Auto) (20-40) % [place] % (Auto) (2-11) % Eos % (Auto) (0-4) % Baso % (Auto) (0-2) % Lymph # (Auto) (1.2-4.9) X10*3/uL [place] # (Auto) (0.1-1.2) X10*3/uL Eos # (Auto) (0.0-0.4) X10*3/uL Baso # (Auto) (0.0-0.2) X10*3/uL Abs Immat Gran (auto) (0.00-0.03) X10*3/uL Absolute Neuts (auto) (2.0-8.3) x10*3/uL Absolute Nucleated RBC (0.0-0.012) X10*3/uL Nucleated RBC % (auto) (0.0-0.2) /100WBC PT (10.0-13.1) SEC INR (0.9-1.1) Sodium 133 L (135-145) mmol/L Potassium 5.0 D (3.3-5.1) mmol/L Chloride 106 (96-108) mmol/L Carbon Dioxide 14 L (22-29) mmol/L Anion Gap 18 (12-20) BUN 48 H (9-16) mg/dL Creatinine 3.95 H (0.5-1.4) mg/dL Estim Creat Clear Calc 20.7 Estimated GFR 13 Random Glucose 112 (60-115) mg/dL Lactic Acid 1.4 (0.5-2.0) mmol/L Calcium 8.3 L (8.4-10.2) mg/dL Magnesium 2.1 (1.6-2.6) mg/dL Total Bilirubin 2.0 H (0.0-1.0) mg/dL Direct Bilirubin 0.6 H (0.0-0.5) mg/dL AST 293 H (5-31) U/L ALT 262 H (0-31) U/L Alkaline Phosphatase 107 (39-117) U/L Troponin I High Sens 15.9 (<3.5-17.0) ng/L B-Natriuretic Peptide (<100) pg/mL Total Protein 6.7 (6.5-8.0) g/dL Albumin 3.1 L (3.5-5.0) g/dL Lipase 18 (8-78) U/L 07/19/22 07/20/22 07/20/22 Range/Units 21:48 04:55 04:55 WBC 4.6 L (4.8-10.8) X10*3/uL RBC 2.70 L (4.20-5.50) X10*6/uL Hgb 7.1 L (12.0-16.0) g/dl Hct 22.7 L (37.0-47.0) % MCV 84.1 (80.0-98.0) fL MCH 26.3 L (27.0-33.0) pg MCHC 31.3 (31.0-35.0) g/dl RDW 18.1 H (11.0-16.0) % Plt Count 155 L (160-400) X10*3/uL MPV 13.2 H (9.4-12.3) fL Immature Gran % (Auto) 0.9 H (0.0-0.4) % Neut % (Auto) 69.4 (45-73) % Lymph % (Auto) 16.0 L (20-40) % [place] % (Auto) 10.8 (2-11) % Eos % (Auto) 2.2 (0-4) % Baso % (Auto) 0.7 (0-2) % Lymph # (Auto) 0.7 L (1.2-4.9) X10*3/uL [place] # (Auto) 0.5 (0.1-1.2) X10*3/uL Eos # (Auto) 0.1 (0.0-0.4) X10*3/uL Baso # (Auto) 0.0 (0.0-0.2) X10*3/uL Abs Immat Gran (auto) 0.04 H (0.00-0.03) X10*3/uL Absolute Neuts (auto) 3.2 (2.0-8.3) x10*3/uL Absolute Nucleated RBC 0.020 H (0.0-0.012) X10*3/uL Nucleated RBC % (auto) 0.4 H (0.0-0.2) /100WBC PT 17.2 H (10.0-13.1) SEC INR 1.5 H (0.9-1.1) Sodium (135-145) mmol/L Potassium (3.3-5.1) mmol/L Chloride (96-108) mmol/L Carbon Dioxide (22-29) mmol/L Anion Gap (12-20) BUN (9-16) mg/dL Creatinine (0.5-1.4) mg/dL Estim Creat Clear Calc Estimated GFR Random Glucose (60-115) mg/dL Lactic Acid (0.5-2.0) mmol/L Calcium (8.4-10.2) mg/dL Magnesium (1.6-2.6) mg/dL Total Bilirubin (0.0-1.0) mg/dL Direct Bilirubin (0.0-0.5) mg/dL AST (5-31) U/L ALT (0-31) U/L Alkaline Phosphatase (39-117) U/L Troponin I High Sens (<3.5-17.0) ng/L B-Natriuretic Peptide 4022 H (<100) pg/mL Total Protein (6.5-8.0) g/dL Albumin (3.5-5.0) g/dL Lipase (8-78) U/L Critical Care Time Critical Care Time Critical Care Time: Yes Total Critical Care Time: 60 Attestation: I have personally provided critical care time. Time includes review of lab data, radiology results, discussion with consultants, and monitoring for potential decompensation. Intervention performed as documented. Discharge Plan Discharge Clinical Impression: Chest pain Patient Disposition: Admitted as Observation Prescriptions: No Action acetaminophen 325 mg tablet 650 mg PO Q4H PRN (Reason: Pain) aspirin 81 mg tablet,delayed release (DR/EC) 1 tab PO DAILY pantoprazole 40 mg tablet,delayed release (DR/EC) 1 tab PO DAILY@0630 insulin aspart U-100 [Novolog FlexPen U-100 Insulin] 100 unit/mL (3 mL) insulin pen 2 - 10 unit subcut TID Levemir FlexTouch U100 Insulin 100 unit/mL (3 mL) insulin pen 8 unit subcut BEDTIME isosorbide mononitrate 30 mg tablet extended release 24 hr 30 mg PO DAILY Qty: 30 0RF oxycodone 5 mg tablet 5 mg PO Q6H PRN (Reason: severe pain) sodium bicarbonate 650 mg Tablet 650 mg PO BID Qty: 60 0RF docusate sodium 100 mg capsule 100 mg PO DAILY PRN (Reason: constipation) ferrous fumarate [Ferrocite] 324 mg (106 mg iron) tablet 324 mg PO DAILY carvedilol 12.5 mg Tablet 25 mg PO BID Qty: 60 0RF Protocol: Hold for SBP/HR < HOLD for SBP < : 90 HOLD for HR < : 60 hydralazine 25 mg Tablet 75 mg PO TID Qty: 270 0RF Protocol: Hold for SBP< HOLD for SBP < : 90 nifedipine 60 mg Tablet Extended Release 24hr 60 mg PO DAILY Qty: 30 0RF Protocol: Hold for SBP< HOLD for SBP < : 90 torsemide 40 mg tablet 40 mg PO BID@0630,1630 Qty: 60 0RF
[2022-07-19] MEDS: Labetalol HCL 100 MG/20 ML VIAL 10 MG IVPUSH (21:56)
[2022-07-19 22:26] LABS: Lactic Acid 1.4 mmol/L (0.5-2.0)
[2022-07-19] MEDS: ondansetron HCL 4 MG/2 ML VIAL IVPUSH (22:30)
[2022-07-19 22:31] LABS: Magnesium 2.1 mg/dL (1.6-2.6)
[2022-07-19 22:32] VITALS: BP 123/70; BP 200/120; PULSE 90; PULSE 98; RESP 22; TEMP 36.5; O2SAT 98; O2SAT 99; BMI 25.8
[2022-07-19 22:34] LABS: B Type Natriuretic Peptide 4022 pg/mL (<100)
[2022-07-19 22:38] LABS: Troponin-I High Sensitivity 15.9 ng/L (<3.5-17.0)
[2022-07-19 22:41] VITALS: PULSE 98
--- NOTE | 2022-07-19 22:47 | PC.NURSE ---
pt refused po MD cheri aware
--- NOTE | 2022-07-19 23:04 | MHC.EDTECH ---
This Tech assumed care of this PT @1540. Pt refuses to let me draw blood cultures.
[2022-07-19 23:29] VITALS: BP 187/113; PULSE 89; RESP 20; O2SAT 99
[2022-07-19] MEDS: Prochlorperazine Edisylate 10 MG/2 ML VIAL IVPUSH (23:59)
[2022-07-19] MEDS: HYDROmorphone HCl 2 MG TABLET 1 MG PO (23:59)
[2022-07-20] VITALS (12 sets, daily range): BP systolic 127–202; BP diastolic 62–118; PULSE 76–104; RESP 12–20; TEMP 36.3–37; O2SAT 92–98; BMI 30.2
--- NOTE | 2022-07-20 00:06 | PC.NURSE ---
Dr. Pal in with pt, py agreed to take oral pain medications
[2022-07-20 04:58] LABS: Anion Gap 18 (12-20)
[2022-07-20 05:06] LABS: Alanine Aminotransferase 262 U/L (0-31); Albumin Level 3.1 g/dL (3.5-5.0); Alkaline Phosphatase 107 U/L (39-117); Aspartate Amino Transferase 293 U/L (5-31); Bilirubin Direct 0.6 mg/dL (0.0-0.5); Blood Urea Nitrogen 48 mg/dL (9-16); Calcium 8.3 mg/dL (8.4-10.2); Carbon Dioxide 14 mmol/L (22-29); Chloride 106 mmol/L (96-108); Creatinine Clr Calc Pharmacy 20.7; Estimated Glomerular Filt Rate 13; Glucose Random 112 mg/dL (60-115); Lipase 18 U/L (8-78); Sodium 133 mmol/L (135-145); Total Protein 6.7 g/dL (6.5-8.0)
[2022-07-20 05:20] LABS: MANUAL DIFF FLAG NO
[2022-07-20 05:23] LABS: Basophils Percent Auto 0.7 % (0-2); Eosinophils Absolute Auto 0.1 X10*3/uL (0.0-0.4); Eosinophils Percent Auto 2.2 % (0-4); Hematocrit 22.7 % (37.0-47.0); Hemoglobin 7.1 g/dl (12.0-16.0); Imm Gran Abs Auto 0.04 X10*3/uL (0.00-0.03); Imm Gran Pct Auto 0.9 % (0.0-0.4); Lymphocytes Absolute Auto 0.7 X10*3/uL (1.2-4.9); Mean Corpuscular HGB Conc 31.3 g/dl (31.0-35.0); Mean Corpuscular Hemoglobin 26.3 pg (27.0-33.0); Mean Corpuscular Volume 84.1 fL (80.0-98.0); Mean Platelet Volume 13.2 fL (9.4-12.3); Monocytes Absolute Auto 0.5 X10*3/uL (0.1-1.2); Monocytes Percent Auto 10.8 % (2-11); NRBC Pct Auto 0.4 /100WBC (0.0-0.2); Neutrophils Absolute Auto 3.2 x10*3/uL (2.0-8.3); Neutrophils Percent Auto 69.4 % (45-73); Platelet Count 155 X10*3/uL (160-400); Red Cell Distribution Width 18.1 % (11.0-16.0); White Blood Count 4.6 X10*3/uL (4.8-10.8)
[2022-07-20 05:25] LABS: INTERNATIONAL NORM RATIO 1.5 (0.9-1.1); Prothrombin Time 17.2 SEC (10.0-13.1)
--- NOTE | 2022-07-20 05:41 | P.HPHOSP_ITS ---
History of Present Illness Date of Service: 07/20/22 Chief Complaint: Chest discomfort This is a 31-year-old female with pertinent history of essential hypertension, congestive heart failure with reduced ejection fraction, 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 Patient states that started 4 days prior to presentation and it has been constant. Not worse with exertion not relieved with rest. Worse with deep inspiration. She thinks she had fluid in her lungs. +orthopnea. Not taking her p.o. medications the last 3-4 days. Patient denies fever, chills, palpitations, abdominal pain, changes in urinary or bowel habits In the emergency department, imaging concerning for pericardial effusion. Blood pressure to 200/120 upon arrival Review of Systems Constitutional: Constitutional: Reports no additional constitutional complaints Cardiovascular: Cardiovascular: Reports chest pain and Reports orthopnea Respiratory: Respiratory: Reports no additional respiratory complaints Gastrointestinal: Gastrointestinal: Reports no additional gastrointestinal complaints Genitourinary: Genitourinary: Reports no additional female genitourinary complaints [facility] Medical History Abnormal finding on echocardiogram Acute dyspnea Acute worsening of stage 3 chronic kidney disease MYNOR (acute kidney injury) Anemia Anemia in chronic kidney disease (CKD) Asthma Back pain Blind right eye Bone infection Cellulitis Cellulitis and abscess of foot delivery delivered Chest pain CHF (congestive heart failure) (~06/07/22) CKD (chronic kidney disease) CKD (chronic kidney disease) Depression with anxiety Diabetes Diabetic retinopathy DM foot ulcer Elevated troponin Essential hypertension Fever Generalized edema HTN (hypertension) Hypertension (~06/10/22) Migraine Osteomyelitis PAD (peripheral artery disease) Pleural effusion test positive test positive Sepsis Severe anemia Tachycardia Type 2 diabetes mellitus with hyperglycemia, with long-term current use of insulin Family History Mother Coronary artery disease Myocardial infarction Stroke Diabetes mellitus Father Myocardial infarction Surgical History History of transmetatarsal amputation of foot S/P transmetatarsal amputation of foot Social History Household Members: Significant Other Household Members Other:: Sister, [id number], nephew Housing: Apartment Do you presently have visiting nurse or other home services: Yes (services) Alcohol intake: never Patient Tobacco Use Status: Never used Tobacco Smoked in Last 30 Days: No e-Cigarette/Vaping Use: Never Used Second Hand Smoke Exposure: No Use of substances other than those prescribed or required for medical reasons: No Advance Directives: No Advance Directives Information Provided: No Advance Directives Date on File: 03/08/20 Patient : No service: No Current occupational status: disabled Gender identity: Female Meds Allergies Allergy/AdvReac Type Severity Reaction Status Date / Time morphine [MORPHINE] Allergy Intermediate Itching Verified 07/06/22 16:17 azithromycin [From Zithromax] Allergy Hives Verified 07/06/22 16:17 gabapentin Allergy Facial Verified 07/06/22 16:17 Swelling tramadol Allergy Facial Verified 07/06/22 16:17 Swelling vancomycin Allergy Hives Verified 07/06/22 16:17 Home Medications Medication Instructions Recorded Confirmed Last Taken Type acetaminophen 325 mg tablet 650 mg PO Q4H PRN Pain 04/01/22 07/06/22 Unknown History aspirin 81 mg tablet,delayed 1 tab PO DAILY 04/01/22 07/06/22 2 Days Ago History release ~04/20/22 pantoprazole 40 mg tablet,delayed 1 tab PO DAILY@0630 04/01/22 07/06/22 2 Days Ago History release ~04/20/22 insulin aspart U-100 100 unit/mL 2 - 10 unit subcut TID 05/10/22 07/06/22 Unknown History (3 mL) subcutaneous pen (Novolog FlexPen U-100 Insulin aspart) insulin detemir U-100 100 unit/mL 8 unit subcut BEDTIME 05/10/22 07/06/22 Unknown History (3 mL) subcutaneous pen (Levemir FlexTouch U-100 Insulin) oxycodone 5 mg tablet 5 mg PO Q6H PRN severe pain 06/07/22 07/06/22 Unknown History docusate sodium 100 mg capsule 100 mg PO DAILY PRN constipation 07/06/22 07/06/22 Unknown History ferrous fumarate 324 mg (106 mg 324 mg PO DAILY 07/06/22 07/06/22 Unknown History iron) tablet (Ferrocite) Physical Exam Vital Signs and Narrative: Vital Signs: Last Vital Signs Temp 97.7 F 07/19/22 22:32 Pulse 89 07/19/22 23:29 Resp 20 07/19/22 23:29 BP 187/113 H 07/19/22 23:29 Pulse Ox 99 07/19/22 23:29 O2 Del Method Room Air 07/19/22 23:29 BMI result Body Mass Index 25.8 Middle-aged female lying in bed in no distress Neck supple, no JVD Regular rate and rhythm, S1-S2 heard Mild crackles bilaterally Abdomen soft nontender, no guarding, no rigidity Patient is awake, alert and oriented to self, place, time and person ; no focal motor deficit Psych: Normal mood Results Labs 07/20/22 04:55 07/19/22 21:48 Labs: Laboratory Results - last 24 hr 07/19/22 07/19/22 07/19/22 12:10 21:48 21:48 MCV MCH MCHC RDW Plt Count MPV Immature Gran % (Auto) Neut % (Auto) Lymph % (Auto) [place] % (Auto) Eos % (Auto) Baso % (Auto) Lymph # (Auto) [place] # (Auto) Eos # (Auto) Baso # (Auto) Abs Immat Gran (auto) Absolute Neuts (auto) Absolute Nucleated RBC Nucleated RBC % (auto) PT INR Anion Gap 18 Estim Creat Clear Calc 20.7 Estimated GFR 13 Random Glucose 112 Lactic Acid 1.4 Calcium 8.3 L Magnesium 2.1 Total Bilirubin 2.0 H Direct Bilirubin 0.6 H AST 293 H ALT 262 H Alkaline Phosphatase 107 Troponin I High Sens 15.9 B-Natriuretic Peptide Total Protein 6.7 Albumin 3.1 L Lipase 18 07/19/22 07/20/22 07/20/22 21:48 04:55 04:55 MCV 84.1 MCH 26.3 L MCHC 31.3 RDW 18.1 H Plt Count 155 L MPV 13.2 H Immature Gran % (Auto) 0.9 H Neut % (Auto) 69.4 Lymph % (Auto) 16.0 L [place] % (Auto) 10.8 Eos % (Auto) 2.2 Baso % (Auto) 0.7 Lymph # (Auto) 0.7 L [place] # (Auto) 0.5 Eos # (Auto) 0.1 Baso # (Auto) 0.0 Abs Immat Gran (auto) 0.04 H Absolute Neuts (auto) 3.2 Absolute Nucleated RBC 0.020 H Nucleated RBC % (auto) 0.4 H PT 17.2 H INR 1.5 H Anion Gap Estim Creat Clear Calc Estimated GFR Random Glucose Lactic Acid Calcium Magnesium Total Bilirubin Direct Bilirubin AST ALT Alkaline Phosphatase Troponin I High Sens B-Natriuretic Peptide 4022 H Total Protein Albumin Lipase Imaging Radiologist's Impressions: Impressions Chest X-Ray 07/20/22 00:04 IMPRESSION: 1. Mildly increased interstitial thickening, nonspecific, could be associated with asthma, bronchitis, reactive airways disease or atypical infections. 2. Slightly increased size of the cardiomediastinal silhouette compared to chest radiograph from 06/06/2022, difficult to accurately compared to recent CT from 07/06/2022 in view of differences in technique. Enlarging pericardial effusion is not excluded, recommend correlation with echocardiogram. 3. Pulmonary nodules are best seen on recent CT chest. Head CT 07/20/22 00:15 IMPRESSION: No acute intracranial pathology. Assessment and Plan (1) Hypertensive emergency: Status: Acute Plan This is a 31-year-old female with pertinent history of essential hypertension, congestive heart failure with reduced ejection fraction, 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 #.? Hypertensive emergency: Given IV labetalol and ordered nitropaste in the ER.?Resume home antihypertensives.? Trend and optimize. #.? Acute (mild) on chronic congestive heart failure with reduced ejection fraction:?due to elevated blood pressure.? Will admit patient and initiate IV Lasix.? Obtaining echocardiogram.? Patient on beta-mohamud.? Strict I's and O's and low-salt diet. Transition to po diuretics once euvolemia achieved #. Pericardial effusion on imaging: Consulting Cardiology and echo as above #.? Insulin-dependent diabetes mellitus:? Initiating Accu-Cheks with sliding scale insulin #.? CKD stage 4: At baseline. Monitor creatinine and urine output with IV diuresis.? Avoid nephrotoxins #.? Chronic normocytic anemia #. Transaminitis: Likely in the setting of congestion. Repeat transaminases as an outpatient and consider outpatient ultrasound Med rec pending DVT prophylaxis:? Lovenox 30 mg daily Full code Low-salt diet Time Spent With Patient Time: Total time managing care of this patient today ____ minutes. Quality Stroke Does the patient have a stroke diagnosis?: No VTE Prior VTE?: No VTE Risk Level:: Medical - moderate - high VTE Device Contraindication: Treatment Not Indicated VTE Drug Contraindication: N/A - Med Ordered
--- NOTE | 2022-07-20 06:15 | PC.NURSE ---
hold blood culture lab draw at this time per admitting provider
[2022-07-20] MEDS: Nitroglycerin 2 % Oint 1 GM Packet 1 INCH TRANSDERMA (06:52)
[2022-07-20] MEDS: Furosemide 40 MG/4 ML VIAL IVPUSH ×3 (06:52→16:59)
[2022-07-20] MEDS: Enoxaparin Sodium 30 MG/0.3 ML SYRINGE SUBCUT (06:53)
--- NOTE | 2022-07-20 07:00 | CA_ITS ---
Transthoracic Echocardiogram Patient (Last, First, Middle): Shereen Taylor, Gender: Female Date of : 1990 Age: 31 Procedure Date: 07/20/2022 Procedure Type: Transthoracic Echocardiogram Location: ER Height: 167.64 cm Weight: 72.58 kg BSA: 1.82 m2 Heart Rate: 94 bpm BP: 178 / 100 mmHg Hot Dog Vender: [email or web address] Referring MD: Angela SIGALA Symptoms: ?pericardial effusion Study Quality: Fair but adequate ECG Rhythm: Sinus Conclusions: - The left ventricular systolic function is severely decreased. The visually estimated ejection fraction is between 25-30%. - Severe biatrial enlargement. - There is mild mitral valve regurgitation. - There is mild tricuspid valve regurgitation. - Mild to moderate pulmonary hypertension is present. - There is a small circumferential pericardial effusion. Findings Procedure Information The quality of the study was technically difficult. The study quality is limited by the patients inability to tolerate the test. The patient declines contrast. Left Ventricle Normal left ventricular cavity size. There is severely increased left ventricular wall thickness. The left ventricular systolic function is severely decreased. The visually estimated ejection fraction is between 25 30%. There is severe global hypokinesis. E/E prime ratio is >15, consistent with elevated filling pressures. Evidence suggests grade II (moderate) diastolic dysfunction. Wall Motion Rest Echo Findings The basal inferior segment is akinetic. Right Ventricle Moderately increased right ventricular cavity size. There is mildly decreased right ventricular systolic function. Atria Severe biatrial enlargement. Aortic Valve There is a normal trileaflet aortic valve. There is no aortic valve stenosis. There is trace (trivial) aortic valve regurgitation. Mitral Valve There is mild mitral annular calcification. There is mild mitral valve regurgitation. There is no mitral valve stenosis. Pulmonic Valve The pulmonic valve is likely normal. There is mild pulmonic valve regurgitation. Tricuspid Valve Normal tricuspid valve structure. There is mild tricuspid valve regurgitation. Mild to moderate pulmonary hypertension is present. Great Vessels The asc aorta is normal in size. Venous The inferior vena cava is normal in size and does not collapse with inspiration. Pericardium/Pleural There is a small circumferential pericardial effusion. Prior Study Comparison Changes noted compared to prior study dated: 05/11/2022. LVEF further reduced. Measurements 2D Linear Measurements IVSd: 1.66 0.6-0.9/0.6-1.0 cm LVIDd: 4.70 3.9-5.3/4.2-5.9 cm LVIDd Index: 2.58 2.4-3.2/2.2-3.1 cm/m2 LVIDs: 4.06 2.0-3.6 cm LVPWd: 1.43 0.7-1.1 cm LA Diam: 5.20 2.7-3.8/3.0-4.0 cm LAIDs Index: 2.86 1.5-2.3 cm/m2 LV Mass: 383.66 67-162/88-224 g LV Mass Index: 210.80 43-95/49-115 g/m2 LVOT Diam: 2.10 3.0+(-)1.3 cm Mitral Valve MV Pk E: 0.87 MV Decel Time: 243.00 E'Lateral: 7.73 E'Medial: 2.70 E/E' Med: 32.40 E/E' Lat: 11.30 Aortic Valve AoV Pk Pietro: 1.06 AoV Pk Grad: 4.00 ANDREA: 2.64 LVOT LVOT Pk Pietro: 0.81 LVOT Mn Pietro: 0.54 LVOT VTI: 0.14 LVOT Pk Grad: 3.00 LVOT Mn Grad: 1.00 LVOT Diam: 2.10 LVOT Area: 3.46 Diastolic Function MV Pk E: 0.87 E'Medial: 2.70 E/E' Med: 32.40 E' Laterial: 7.73 E/E' Lat: 11.30 Right Ventricle TAPSE (mm): 13.50 TVS' Pietro: 8.59 Tricuspid Valve TR Pk Pietro: 3.12 TR Pk Grad: 39.00 RA Press: 8.00 RVSP: 47.00 Great Vessels Aorta Sinus of Valsalva: 2.90 2.0-3.5 cm Ao Asc: 3.20 2.1-3.4 cm Pulmonary Valve PV Pk Pietro: 0.88 Peak PV Grad: 3.00 Updated in Other Vendor System with Status of Final Brandyn Bhardwaj MD electronically signed on 07/20/2022 12:23:18 PM with status of Final
[2022-07-20 07:16] LABS: Glucose, Whole Blood 81 mg/dL (60-115)
--- NOTE | 2022-07-20 07:45 | PC.NURSE ---
assumed care of this pt at 0700. helped pt to commode and pt voided 500mL urine. pt up sitting at the side of bed eating breakfast. in no apparent distress. awaiting admit orders. tm
--- NOTE | 2022-07-20 09:23 | PHA.MEDREC ---
Pharmacy Consult ? Medication Reconciliation Pharmacy has completed the medication reconciliation. Spoke to patient to confirm meds. Patient states they don't know their meds and said to call pharmacy. Patient was recently discharged on 07/11/22. Utilized medical records and pharmacy to confirm meds. When questioning her on insulin, patient stated that they do not take insulin. Pharmacy claims support this with last fill back in February 2022. States last time they took medication was yesterday, but could not name what medications were taken yesterday.
--- NOTE | 2022-07-20 10:12 | P.CONCA_ITS ---
History of Present Illness History of Present Illness Date of Service: 07/20/22 Chief complaint: Chest Discomfort Narrative: This is a cardiology consultation regarding chest pain. Patient has a history of poorly controlled hypertension, noncompliance, heart failure preserved ejection fraction, diabetes, diabetic retinopathy, status post transmetatarsal amputation, chronic kidney disease. She has been seen in the past for uncontrolled blood pressures and congestive heart failure. She also has a cardiomyopathy related to uncontrolled blood pressures. Current admissions for chest pain. She states that for the last few days she has been having chest pain but she also has pain all over the body. Each time she takes a breath, it hurts the chest. Nothing exertional. Seems rather pleuritic in nature. Denies any shortness of breath or any other complaints. Per admission documentation, it seems that she has not been taking her medications for the last few days. Review of Systems Review of Systems: Yes all other systems are reviewed and are negative Constitutional: Constitutional: Reports as per HPI and Reports no additional constitutional complaints Eyes: Eyes: Reports as per HPI and Denies no additional eye complaints ENT: Denies system reviewed and no additional complaints, except as documented and Reports as per HPI Cardiovascular: Cardiovascular: Reports as per HPI, Reports no additional c ardiovascular complaints, Denies acrocyanosis, Denies cool extremities, Reports chest pain, Denies leg edema, Denies lightheadedness, Denies palpitations and Denies dyspnea Respiratory: Respiratory: Reports as per HPI, Denies no additional respiratory complaints and Denies dyspnea Gastrointestinal: Gastrointestinal: Reports as per HPI and Denies no additional gastrointestinal complaints Genitourinary: Genitourinary: Reports as per HPI Musculoskeletal: Musculoskeletal: Reports no additional musculoskeletal complaints and Reports as per HPI Integumentary/Breasts: Skin/Breast: Reports system reviewed and no additional complaints, except as docu Neurologic: Reports system reviewed and no additional complaints, except as documented and Reports as per HPI Psychiatric: Psychiatric: Reports no additional psychiatric complaints and Reports as per HPI Endocrine: Endocrine: Reports no additional endocrine complaints, Reports as per HPI and Denies palpitations Hematologic/Lymphatic: Hematologic/Lymphatic: Reports no additional hematol ogic/lymphatic complaints and Reports as per HPI Allergic/Immunologic: Allergic/Immunologic: Reports no additional allergic/immunologic complaints and Reports as per HPI [facility] Past Medical History Medical History Abnormal finding on echocardiogram Acute dyspnea Acute worsening of stage 3 chronic kidney disease MYNOR (acute kidney injury) Anemia Anemia in chronic kidney disease (CKD) Asthma Back pain Blind right eye Bone infection Cellulitis Cellulitis and abscess of foot delivery delivered Chest pain CHF (congestive heart failure) (~06/07/22) CKD (chronic kidney disease) CKD (chronic kidney disease) Depression with anxiety Diabetes Diabetic retinopathy DM foot ulcer Elevated troponin Essential hypertension Fever Generalized edema HTN (hypertension) Hypertension (~06/10/22) Migraine Osteomyelitis PAD (peripheral artery disease) Pleural effusion test positive test positive Sepsis Severe anemia Tachycardia Type 2 diabetes mellitus with hyperglycemia, with long-term current use of insulin Family History Family History Mother Coronary artery disease Myocardial infarction Stroke Diabetes mellitus Father Myocardial infarction Surgical History Surgical History History of transmetatarsal amputation of foot S/P transmetatarsal amputation of foot Social History Social History Household Members: Significant Other Household Members Other:: Sister, [id number], nephew Housing: Apartment Do you presently have visiting nurse or other home services: Yes (services) Alcohol intake: never Patient Tobacco Use Status: Never used Tobacco Smoked in Last 30 Days: No e-Cigarette/Vaping Use: Never Used Second Hand Smoke Exposure: No Use of substances other than those prescribed or required for medical reasons: No Advance Directives: No Advance Directives Information Provided: No Advance Directives Date on File: 03/08/20 Patient : No service: No Current occupational status: disabled Gender identity: Female Meds Allergies Allergy/AdvReac Type Severity Reaction Status Date / Time morphine [MORPHINE] Allergy Intermediate Itching Verified 07/06/22 16:17 azithromycin [From Zithromax] Allergy Hives Verified 07/06/22 16:17 gabapentin Allergy Facial Verified 07/06/22 16:17 Swelling tramadol Allergy Facial Verified 07/06/22 16:17 Swelling vancomycin Allergy Hives Verified 07/06/22 16:17 Active Medications: Current Medications Acetaminophen (Acetaminophen 325 Mg Tablet) 650 mg PO Q6H PRN PRN Reason: Pain, Mild (Pain Scale 1-3) Enoxaparin Sodium (Enoxaparin Sodium 30 Mg/0.3 Ml Syringe) 30 mg SUBCUT Q24H [facility] Last Admin: 07/20/22 06:53 Dose: 30 mg Furosemide (Furosemide 40 Mg/4 Ml Vial) 40 mg IVPUSH BID@0900,1800 [facility]; Protocol Last Admin: 07/20/22 06:52 Dose: 40 mg Glucose (Glucose Gel 15 Gm Gel..Gram.) 15 gm PO Q15M PRN; Protocol PRN Reason: per Hypoglycemia Standing Ord. Dextrose (D10) 250 mls @ 750 mls/hr IV Q15M PRN; Protocol PRN Reason: per Hypoglycemia Standing Ord. Insulin Human Lispro (Insulin Lispro 100 Unit/Ml 3 Ml Vial) 0 unit SUBCUT QIDACHS [facility]; Protocol Last Admin: 07/20/22 07:35 Dose: Not Given Isosorbide Mononitrate (Isosorbide Mononitrate 30 Mg Tab.Er.24h) 30 mg PO DAILY [facility]; Protocol Melatonin (Melatonin 3 Mg Tablet) 6 mg PO BEDTIME PRN PRN Reason: Insomnia Nifedipine (Nifedipine Er 30 Mg Tab.Er.24) 60 mg PO DAILY [facility]; Protocol Ondansetron HCl (Ondansetron Hcl 4 Mg/2 Ml Vial) 4 mg IVPUSH Q8H PRN PRN Reason: Nausea and Vomiting Pharmacy Consult (Consult Rx Perform Med Rec) 1 each MISCELLANE ONCE PRN PRN Reason: Consult order Pharmacy Consult (Consult Rx Perform Med Rec) 1 each MISCELLANE ONCE PRN PRN Reason: Consult order Sodium Chloride (0.9 % Sodium Chloride Flush 3 Ml Syringe) 3 ml IVFLUSH QSHIFT [facility] Last Admin: 07/20/22 07:34 Dose: Not Given Home Medications Medication Instructions Recorded Confirmed Last Taken Type acetaminophen 325 mg tablet 650 mg PO Q4H PRN Pain 04/01/22 07/20/22 Unknown History aspirin 81 mg tablet,delayed 1 tab PO DAILY 04/01/22 07/20/22 2 Days Ago History release ~04/20/22 pantoprazole 40 mg tablet,delayed 1 tab PO DAILY@0630 04/01/22 07/20/22 2 Days Ago History release ~04/20/22 oxycodone 5 mg tablet 5 mg PO Q6H PRN severe pain 06/07/22 07/20/22 Unknown History docusate sodium 100 mg capsule 100 mg PO DAILY PRN constipation 07/06/22 07/20/22 Unknown History ferrous fumarate 324 mg (106 mg 324 mg PO DAILY 07/06/22 07/20/22 Unknown History iron) tablet (Ferrocite) Physical Exam Vital Signs: Vital Signs: Last Vital Signs Temp 97.9 F 07/20/22 05:43 Pulse 86 07/20/22 06:49 Resp 20 07/20/22 06:49 BP 178/100 H 07/20/22 06:49 Pulse Ox 93 07/20/22 05:43 O2 Del Method Room Air 07/20/22 05:43 BMI result Body Mass Index 25.8 Const: General: comfortable and no acute distress Orientation/consciousness: patient oriented x3 HEENT: Other: Unremarkable Head: Yes normal to inspection Neck: Neck: Yes normal visual inspection Chest: Chest palpation & inspection: normal inspection of the chest Resp: Auscultation: clear to auscultation bilaterally Cardio: Palpation: normal PMI Heart sounds: S1 normal heart sound present, S2 normal heart sound present, no gallops, no murmurs and no rubs GI: Palpation (GI): Soft to palpation Back/Spine/Pelvis: Other: unremarkable Skin: General skin exam: no rashes or lesions noted Neuro: General: patient oriented x3 Extrem: General: Yes normal to inspection Psych: Mental Status: mental status grossly normal Objective Labs and Meds 07/20/22 04:55 07/19/22 21:48 Lab results: Laboratory Results - last 24 hr 07/19/22 07/19/22 07/19/22 12:10 21:48 21:48 WBC RBC Hgb Hct MCV MCH MCHC RDW Plt Count MPV Immature Gran % (Auto) Neut % (Auto) Lymph % (Auto) [place]oula % (Auto) Eos % (Auto) Baso % (Auto) Lymph # (Auto) [place] # (Auto) Eos # (Auto) Baso # (Auto) Abs Immat Gran (auto) Absolute Neuts (auto) Absolute Nucleated RBC Nucleated RBC % (auto) PT INR Sodium 133 L Potassium 5.0 D Chloride 106 Carbon Dioxide 14 L Anion Gap 18 BUN 48 H Creatinine 3.95 H Estim Creat Clear Calc 20.7 Estimated GFR 13 POC Glucose Random Glucose 112 Lactic Acid 1.4 Calcium 8.3 L Magnesium 2.1 Total Bilirubin 2.0 H Direct Bilirubin 0.6 H AST 293 H ALT 262 H Alkaline Phosphatase 107 Troponin I High Sens 15.9 B-Natriuretic Peptide Total Protein 6.7 Albumin 3.1 L Lipase 18 07/19/22 07/20/22 07/20/22 21:48 04:55 04:55 WBC 4.6 L RBC 2.70 L Hgb 7.1 L Hct 22.7 L MCV 84.1 MCH 26.3 L MCHC 31.3 RDW 18.1 H Plt Count 155 L MPV 13.2 H Immature Gran % (Auto) 0.9 H Neut % (Auto) 69.4 Lymph % (Auto) 16.0 L [place] % (Auto) 10.8 Eos % (Auto) 2.2 Baso % (Auto) 0.7 Lymph # (Auto) 0.7 L [place] # (Auto) 0.5 Eos # (Auto) 0.1 Baso # (Auto) 0.0 Abs Immat Gran (auto) 0.04 H Absolute Neuts (auto) 3.2 Absolute Nucleated RBC 0.020 H Nucleated RBC % (auto) 0.4 H PT 17.2 H INR 1.5 H Sodium Potassium Chloride Carbon Dioxide Anion Gap BUN Creatinine Estim Creat Clear Calc Estimated GFR POC Glucose Random Glucose Lactic Acid Calcium Magnesium Total Bilirubin Direct Bilirubin AST ALT Alkaline Phosphatase Troponin I High Sens B-Natriuretic Peptide 4022 H Total Protein Albumin Lipase 07/20/22 07:12 WBC RBC Hgb Hct MCV MCH MCHC RDW Plt Count MPV Immature Gran % (Auto) Neut % (Auto) Lymph % (Auto) [place]oul[place] % (Auto) Eos % (Auto) Baso % (Auto) Lymph # (Auto) [place]oula # (Auto) Eos # (Auto) Baso # (Auto) Abs Immat Gran (auto) Absolute Neuts (auto) Absolute Nucleated RBC Nucleated RBC % (auto) PT INR Sodium Potassium Chloride Carbon Dioxide Anion Gap BUN Creatinine Estim Creat Clear Calc Estimated GFR POC Glucose 81 Random Glucose Lactic Acid Calcium Magnesium Total Bilirubin Direct Bilirubin AST ALT Alkaline Phosphatase Troponin I High Sens B-Natriuretic Peptide Total Protein Albumin Lipase ECG Interpretation: EKG with sinus rhythm at 80/Min; right bundle-branch block; possible left atrial enlargement. No significant changes compared to prior study from 06/06/2022. Imaging Radiologist's impression: Impressions Chest X-Ray 07/20/22 00:04 IMPRESSION: 1. Mildly increased interstitial thickening, nonspecific, could be associated with asthma, bronchitis, reactive airways disease or atypical infections. 2. Slightly increased size of the cardiomediastinal silhouette compared to chest radiograph from 06/06/2022, difficult to accurately compared to recent CT from 07/06/2022 in view of differences in technique. Enlarging pericardial effusion is not excluded, recommend correlation with echocardiogram. 3. Pulmonary nodules are best seen on recent CT chest. Head CT 07/20/22 00:15 IMPRESSION: No acute intracranial pathology. Assessment and Plan (1) Chest pain: Status: Acute (2) Hypertensive emergency: Status: Acute (3) CKD (chronic kidney disease) stage 4, GFR 15-29 ml/min: Status: Acute Plan Blood pressure is markedly high. Highest recorded since arrival is 200/120 mm Hg. Still quite high. BUN/creatinine are also quite high but close to her ba seline. Liver enzymes are high. High sensitivity troponin is okay. Cardiac BNP is 4022. This is higher than the last weeks value of 1941. In the chest x-ray there is a question of possible pericardial effusion based on increase in cardiomediastinal silhouette. For this reason, we will get an echocardiogram to ensure there is no significant pericardial effusion. Otherwise, mainstay of therapy is to reasons she would her hypertension medications and get the blood pressure under control. She is also on empiric diuretic therapy and that is acceptable. Will follow up with you. Discussed with Angela Ulloa. Time Spent With Patient Time: Total time managing care of this patient today ____ minutes. Procedures Date of Service Date of Service: 07/20/22
[2022-07-20] MEDS: Isosorbide Mononitrate 30 MG TAB.ER.24H PO (10:58)
[2022-07-20] MEDS: NIFEdipine ER 30 MG TAB.ER.24 60 MG PO (10:59)
[2022-07-20 11:11] LABS: Alanine Aminotransferase 286 U/L (0-31); Albumin Level 2.9 g/dL (3.5-5.0); Alkaline Phosphatase 100 U/L (39-117); Anion Gap 17 (12-20); Aspartate Amino Transferase 254 U/L (5-31); Bilirubin Direct 0.6 mg/dL (0.0-0.5); Bilirubin Total 1.7 mg/dL (0.0-1.0); Blood Urea Nitrogen 48 mg/dL (9-16); Calcium 8.5 mg/dL (8.4-10.2); Carbon Dioxide 16 mmol/L (22-29); Chloride 110 mmol/L (96-108); Creatinine Clr Calc Pharmacy 20.4; Estimated Glomerular Filt Rate 13; Glucose Random 116 mg/dL (60-115); Potassium 4.5 mmol/L (3.3-5.1); Sodium 138 mmol/L (135-145)
--- NOTE | 2022-07-20 11:27 | HO.PM.IMPN ---
Subjective Subjective Date of Service: 07/20/22 Interval History: seen and examined this morning follow up for CHF, anemia denies sob, chest pain at this time. unsure if she wants to stay in the hospital Review of Systems Review of Systems: Yes all other systems are reviewed and are negative Constitutional Constitutional: Denies chills and Denies fever(s) ENT Ears, Nose, Mouth, and Throat: Denies dizziness Cardiovascular Cardiovascular: Denies chest pain, Denies palpitations and Denies dyspnea Respiratory Respiratory: Denies cough and Denies dyspnea Gastrointestinal Gastrointestinal: Denies abdominal pain, Denies nausea and Denies vomiting Neurologic Neurologic: Denies dizziness Endocrine Endocrine: Denies palpitations Physical Exam Vital Signs: Vital Signs: Last Vital Signs Temp 97.9 F 07/20/22 05:43 Pulse 93 07/20/22 10:52 Resp 15 07/20/22 10:52 BP 202/118 H 07/20/22 10:52 Pulse Ox 95 07/20/22 10:52 O2 Del Method Room Air 07/20/22 10:52 BMI result Body Mass Index 25.8 Const: General: comfortable, no acute distress, alert and awake Nutritional Appearance: average body habitus Orientation/consciousness: patient oriented x3 Resp: Effort & Inspection: normal respiratory effort, able to speak in complete sentences, no respiratory distress and no use of accessory muscles Cardio: Rate: regular rate GI: Inspection: No distended Palpation (GI): Soft to palpation Neuro: General: patient oriented x3, moves all extremities and CN's II-XI intact bilaterally Extrem: Other: s/p transmetatarsal amp left foot and multiple toe amps right foot General: Yes no pedal edema Objective Data Active Medications Acetaminophen (Acetaminophen 325 Mg Tablet) 650 mg PO Q6H PRN PRN Reason: Pain, Mild (Pain Scale 1-3) Aspirin (Aspirin Enteric Coated 81 Mg Tablet.Dr) 81 mg PO DAILY [facility] Carvedilol (Carvedilol 12.5 Mg Tablet) 25 mg PO BID [facility]; Protocol Docusate Sodium (Docusate Sodium 100 Mg Capsule) 100 mg PO DAILY PRN PRN Reason: constipation Enoxaparin Sodium (Enoxaparin Sodium 30 Mg/0.3 Ml Syringe) 30 mg SUBCUT Q24H [facility] Last Admin: 07/20/22 06:53 Dose: 30 mg Documented By: SHAUN Ferrous Sulfate (Ferrous Sulfate 324 Mg Tablet.) 324 mg PO DAILY [facility] Furosemide (Furosemide 40 Mg/4 Ml Vial) 40 mg IVPUSH BID@0900,1800 [facility]; Protocol Last Admin: 07/20/22 11:01 Dose: 40 mg Documented By: DANNA Glucose (Glucose Gel 15 Gm Gel..Gram.) 15 gm PO Q15M PRN; Protocol PRN Reason: per Hypoglycemia Standing Ord. Hydralazine HCl (Hydralazine Hcl 50 Mg Tablet) 50 mg PO TID [facility]; Protocol Dextrose (D10) 250 mls @ 750 mls/hr IV Q15M PRN; Protocol PRN Reason: per Hypoglycemia Standing Ord. Insulin Human Lispro (Insulin Lispro 100 Unit/Ml 3 Ml Vial) 0 unit SUBCUT QIDACHS [facility]; Protocol Last Admin: 07/20/22 07:35 Dose: Not Given Documented By: DANNA Non-Admin Reason: No Insulin Coverage Isosorbide Mononitrate (Isosorbide Mononitrate 30 Mg Tab.Er.24h) 30 mg PO DAILY [facility]; Protocol Last Admin: 07/20/22 10:58 Dose: 30 mg Documented By: DANNA Melatonin (Melatonin 3 Mg Tablet) 6 mg PO BEDTIME PRN PRN Reason: Insomnia Nifedipine (Nifedipine Er 30 Mg Tab.Er.24) 60 mg PO DAILY [facility]; Protocol Last Admin: 07/20/22 10:59 Dose: 60 mg Documented By: DANNA Omeprazole (Omeprazole 20 Mg Capsule.) 20 mg PO DAILY@0630 [facility] Ondansetron HCl (Ondansetron Hcl 4 Mg/2 Ml Vial) 4 mg IVPUSH Q8H PRN PRN Reason: Nausea and Vomiting Pharmacy Consult (Consult Rx Perform Med Rec) 1 each MISCELLANE ONCE PRN PRN Reason: Consult order Pharmacy Consult (Consult Rx Perform Med Rec) 1 each MISCELLANE ONCE PRN PRN Reason: Consult order Sodium Bicarbonate (Sodium Bicarbonate 650 Mg Tablet) 650 mg PO BID [facility] Sodium Chloride (0.9 % Sodium Chloride Flush 3 Ml Syringe) 3 ml IVFLUSH QSHIFT [facility] Last Admin: 07/20/22 07:34 Dose: Not Given Documented By: DANNA Non-Admin Reason: Med Not Available Labs 07/20/22 04:55 07/20/22 10:31 Labs: Laboratory Results - last 24 hr 07/19/22 07/19/22 07/19/22 12:10 21:48 21:48 MCV MCH MCHC RDW Plt Count MPV Immature Gran % (Auto) Neut % (Auto) Lymph % (Auto) [place] % (Auto) Eos % (Auto) Baso % (Auto) Lymph # (Auto) [place] # (Auto) Eos # (Auto) Baso # (Auto) Abs Immat Gran (auto) Absolute Neuts (auto) Absolute Nucleated RBC Nucleated RBC % (auto) PT INR Anion Gap 18 Estim Creat Clear Calc 20.7 Estimated GFR 13 POC Glucose Random Glucose 112 Lactic Acid 1.4 Calcium 8.3 L Magnesium 2.1 Total Bilirubin 2.0 H Direct Bilirubin 0.6 H AST 293 H ALT 262 H Alkaline Phosphatase 107 Troponin I High Sens 15.9 B-Natriuretic Peptide Total Protein 6.7 Albumin 3.1 L Lipase 18 Blood Type Antibody Screen Crossmatch 07/19/22 07/20/22 07/20/22 21:48 04:55 04:55 MCV 84.1 MCH 26.3 L MCHC 31.3 RDW 18.1 H Plt Count 155 L MPV 13.2 H Immature Gran % (Auto) 0.9 H Neut % (Auto) 69.4 Lymph % (Auto) 16.0 L [place] % (Auto) 10.8 Eos % (Auto) 2.2 Baso % (Auto) 0.7 Lymph # (Auto) 0.7 L [place] # (Auto) 0.5 Eos # (Auto) 0.1 Baso # (Auto) 0.0 Abs Immat Gran (auto) 0.04 H Absolute Neuts (auto) 3.2 Absolute Nucleated RBC 0.020 H Nucleated RBC % (auto) 0.4 H PT 17.2 H INR 1.5 H Anion Gap Estim Creat Clear Calc Estimated GFR POC Glucose Random Glucose Lactic Acid Calcium Magnesium Total Bilirubin Direct Bilirubin AST ALT Alkaline Phosphatase Troponin I High Sens B-Natriuretic Peptide 4022 H Total Protein Albumin Lipase Blood Type Antibody Screen Crossmatch 07/20/22 07/20/22 07/20/22 07:12 10:31 10:31 MCV MCH MCHC RDW Plt Count MPV Immature Gran % (Auto) Neut % (Auto) Lymph % (Auto) [place] % (Auto) Eos % (Auto) Baso % (Auto) Lymph # (Auto) [place] # (Auto) Eos # (Auto) Baso # (Auto) Abs Immat Gran (auto) Absolute Neuts (auto) Absolute Nucleated RBC Nucleated RBC % (auto) PT INR Anion Gap 17 Estim Creat Clear Calc 20.4 Estimated GFR 13 POC Glucose 81 Random Glucose 116 H Lactic Acid Calcium 8.5 Magnesium Total Bilirubin 1.7 H Direct Bilirubin 0.6 H AST 254 H ALT 286 H Alkaline Phosphatase 100 Troponin I High Sens B-Natriuretic Peptide Total Protein 6.0 L Albumin 2.9 L Lipase Blood Type A Positive Antibody Screen NEGATIVE Crossmatch See Detail Assessment and Plan (1) Hypertensive emergency: Status: Acute (2) CKD (chronic kidney disease) stage 4, GFR 15-29 ml/min: Status: Acute (3) Acute on chronic systolic and diastolic heart failure, NYHA class 3: Status: Acute Plan This is a 31-year-old female with pertinent history of essential hypertension, congestive heart failure with reduced ejection fraction, 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 Hypertensive emergency: Given IV labetalol and ordered nitropaste in the ER recent admission for same. h/o non-compliance resume home dose of BP meds Acute (mild) on chronic congestive HFrEF EF 40-45% in past due to elevated blood pressure Continue IV Lasix follow Is&Os cardiology following Pericardial effusion on imaging: Consulting Cardiology echo pending Insulin-dependent diabetes mellitus:? Continue POCs, ada diet, SSI Transaminitis no abdominal pain ?passive congestion from CHF trend LFTs CKD stage 4/metabolic acidosis SCr near baseline continue baseline sodium bicarb follow renal function Acute on Chronic normocytic anemia r/t iron deficiently and chronic dz will transfuse 1U rbc continue iron supplementation follow CBC attending - dr. healy DVT prophylaxis:? Lovenox 30 mg daily Full code Low-salt diet requires ongoing inpatient admission for chf and close blood pressure monitoring and ECHO to eval for pericardial effusion Time Spent With Patient Time: Total time managing care of this patient today ____ minutes. Quality Stroke Does the patient have a stroke diagnosis?: No VTE Prior VTE?: No VTE Risk Level:: Medical - moderate - high VTE Device Contraindication: Treatment Not Indicated VTE Drug Contraindication: N/A - Med Ordered
[2022-07-20] MEDS: hydrALAZINE HCl 50 MG TABLET PO ×3 (11:45→22:17)
[2022-07-20] MEDS: diphenhydrAMINE HCL 25 MG CAPSULE PO (11:45)
[2022-07-20] MEDS: HYDROmorphone HCl 0.5 MG/0.5 ML SYRINGE IVPUSH (11:46)
--- NOTE | 2022-07-20 12:12 | PC.NURSE ---
pt BP high in 200s/100s. JOVON Ulloa aware. pt also reporting severe head and rib pain. medicated per apr. blood bank called this RN to notify blood ready to be picked up for infusion. rechecked BP and still high in 200s/100s. JOVON Pate notified and advised to hold off until BP comes down. pt resting quietly on stretcher in no apparent distress jonny. wctm
--- NOTE | 2022-07-20 12:42 | PM.CNNEP ---
History of Present Illness Reason for Consult Consult date: 07/20/22 Chief Complaint Chief complaint: Chest Discomfort History of Present Illness Narrative: 31-year-old female with history of severe CKD presented to the emergency department for evaluation of chest discomfort. 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 At the time of the consultation, she denies chest pain, shortness of breath. There is no report of nausea, vomiting or diarrhea. Review of Systems Review of Systems 10 points ROS negative [facility] for [facility] Past Medical History Medical History (Updated 07/20/22 @ 12:47 by Jason Sanchez MD) Abnormal finding on echocardiogram Acute dyspnea Acute worsening of stage 3 chronic kidney disease MYNOR (acute kidney injury) Anemia Anemia in chronic kidney disease (CKD) Asthma Back pain Blind right eye Bone infection Cellulitis Cellulitis and abscess of foot delivery delivered Chest pain CHF (congestive heart failure) (~06/07/22) CKD (chronic kidney disease) CKD (chronic kidney disease) Depression with anxiety Diabetes Diabetic retinopathy DM foot ulcer Elevated troponin Essential hypertension Fever Generalized edema HTN (hypertension) Hypertension (~06/10/22) Migraine Osteomyelitis PAD (peripheral artery disease) Pleural effusion test positive test positive Sepsis Severe anemia Tachycardia Type 2 diabetes mellitus with hyperglycemia, with long-term current use of insulin Family History Family History Mother Coronary artery disease Myocardial infarction Stroke Diabetes mellitus Father Myocardial infarction Surgical History Surgical History History of transmetatarsal amputation of foot S/P transmetatarsal amputation of foot Social History Social History Household Members: Significant Other Household Members Other:: Sister, [id number], nephew Housing: Apartment Do you presently have visiting nurse or other home services: Yes (services) Alcohol intake: never Patient Tobacco Use Status: Never used Tobacco Smoked in Last 30 Days: No e-Cigarette/Vaping Use: Never Used Second Hand Smoke Exposure: No Use of substances other than those prescribed or required for medical reasons: No Advance Directives: No Advance Directives Information Provided: No Advance Directives Date on File: 03/08/20 Patient : No service: No Current occupational status: disabled Gender identity: Female Meds Allergies Allergy/AdvReac Type Severity Reaction Status Date / Time morphine [MORPHINE] Allergy Intermediate Itching Verified 07/06/22 16:17 azithromycin [From Zithromax] Allergy Hives Verified 07/06/22 16:17 gabapentin Allergy Facial Verified 07/06/22 16:17 Swelling tramadol Allergy Facial Verified 07/06/22 16:17 Swelling vancomycin Allergy Hives Verified 07/06/22 16:17 Active Medications: Current Medications Acetaminophen (Acetaminophen 325 Mg Tablet) 650 mg PO Q6H PRN PRN Reason: Pain, Mild (Pain Scale 1-3) Aspirin (Aspirin Enteric Coated 81 Mg Tablet.) 81 mg PO DAILY [facility] Carvedilol (Carvedilol 12.5 Mg Tablet) 25 mg PO BID [facility]; Protocol Docusate Sodium (Docusate Sodium 100 Mg Capsule) 100 mg PO DAILY PRN PRN Reason: constipation Enoxaparin Sodium (Enoxaparin Sodium 30 Mg/0.3 Ml Syringe) 30 mg SUBCUT Q24H [facility] Last Admin: 07/20/22 06:53 Dose: 30 mg Ferrous Sulfate (Ferrous Sulfate 324 Mg Tablet.) 324 mg PO DAILY [facility] Furosemide (Furosemide 40 Mg/4 Ml Vial) 40 mg IVPUSH BID@0900,1800 [facility]; Protocol Last Admin: 07/20/22 11:01 Dose: 40 mg Glucose (Glucose Gel 15 Gm Gel..Gram.) 15 gm PO Q15M PRN; Protocol PRN Reason: per Hypoglycemia Standing Ord. Hydralazine HCl (Hydralazine Hcl 50 Mg Tablet) 50 mg PO TID [facility]; Protocol Last Admin: 07/20/22 11:45 Dose: 50 mg Dextrose (D10) 250 mls @ 750 mls/hr IV Q15M PRN; Protocol PRN Reason: per Hypoglycemia Standing Ord. Insulin Human Lispro (Insulin Lispro 100 Unit/Ml 3 Ml Vial) 0 unit SUBCUT QIDACHS [facility]; Protocol Last Admin: 07/20/22 07:35 Dose: Not Given Isosorbide Mononitrate (Isosorbide Mononitrate 30 Mg Tab.Er.24h) 30 mg PO DAILY [facility]; Protocol Last Admin: 07/20/22 10:58 Dose: 30 mg Melatonin (Melatonin 3 Mg Tablet) 6 mg PO BEDTIME PRN PRN Reason: Insomnia Nifedipine (Nifedipine Er 30 Mg Tab.Er.24) 60 mg PO DAILY [facility]; Protocol Last Admin: 07/20/22 10:59 Dose: 60 mg Omeprazole (Omeprazole 20 Mg Capsule.Dr) 20 mg PO DAILY@0630 [facility] Ondansetron HCl (Ondansetron Hcl 4 Mg/2 Ml Vial) 4 mg IVPUSH Q8H PRN PRN Reason: Nausea and Vomiting Oxycodone HCl (Oxycodone Hcl Immed Release 5 Mg Tablet) 5 mg PO Q6H PRN PRN Reason: severe pain Pharmacy Consult (Consult Rx Perform Med Rec) 1 each MISCELLANE ONCE PRN PRN Reason: Consult order Pharmacy Consult (Consult Rx Perform Med Rec) 1 each MISCELLANE ONCE PRN PRN Reason: Consult order Sodium Bicarbonate (Sodium Bicarbonate 650 Mg Tablet) 650 mg PO BID [facility] Sodium Chloride (0.9 % Sodium Chloride Flush 3 Ml Syringe) 3 ml IVFLUSH QSHIFT [facility] Last Admin: 07/20/22 07:34 Dose: Not Given Home Medications Medication Instructions Recorded Confirmed Last Taken Type acetaminophen 325 mg tablet 650 mg PO Q4H PRN Pain 04/01/22 07/20/22 Unknown History aspirin 81 mg tablet,delayed 1 tab PO DAILY 04/01/22 07/20/22 2 Days Ago History release ~04/20/22 pantoprazole 40 mg tablet,delayed 1 tab PO DAILY@0630 04/01/22 07/20/22 2 Days Ago History release ~04/20/22 oxycodone 5 mg tablet 5 mg PO Q6H PRN severe pain 06/07/22 07/20/22 Unknown History docusate sodium 100 mg capsule 100 mg PO DAILY PRN constipation 07/06/22 07/20/22 Unknown History ferrous fumarate 324 mg (106 mg 324 mg PO DAILY 07/06/22 07/20/22 Unknown History iron) tablet (Ferrocite) Physical Exam Vital Signs: Last Vital Signs Temp 97.9 F 07/20/22 05:43 Pulse 93 07/20/22 10:52 Resp 16 07/20/22 11:46 BP 202/118 H 07/20/22 10:52 Pulse Ox 95 07/20/22 10:52 O2 Del Method Room Air 07/20/22 10:52 BMI result Body Mass Index 25.8 Const General: no acute distress, alert and awake HEENT Head: Yes normocephalic and Yes atraumatic Neck Neck: Yes supple Resp Auscultation: diminished lung sounds Cardio Heart sounds: S1 normal heart sound present and S2 normal heart sound present GI Palpation (GI): Soft to palpation and nontender Extrem Right upper extremity: edema Results Lab Results 07/20/22 04:55 07/20/22 10:31 Lab results: Chemistry 07/19/22 07/20/22 21:48 10:31 Sodium 133 L 138 Potassium 5.0 D 4.5 Carbon Dioxide 14 L 16 L BUN 48 H 48 H Creatinine 3.95 H 3.99 H Calcium 8.3 L 8.5 Hematology 07/20/22 04:55 WBC 4.6 L Hgb 7.1 L Plt Count 155 L Assessment and Plan (1) CKD (chronic kidney disease) stage 4, GFR 15-29 ml/min: Status: Acute (2) Metabolic acidosis: Status: Acute (3) HFrEF (heart failure with reduced ejection fraction): Status: Acute (4) HTN (hypertension): Status: Acute (5) Anemia: Status: Acute Plan advanced CKD due to DM/HTN known nephrotic range proteinuria known diabetic retinopathy type IV RTA due to advanced CKD known HFrEF LVEF 40-45% severe restriction in free water excretion elevated BP on carvedilol, nifedipine and hydralazine REC iron profile c/w IV furosemide c/w sodium bicarbonate 650 mg bid increase nifedipine 90 mg daily no ACEi/ARB hold VIPUL while BP elevated no indication for HOSPITAL DIRECTOR protect non dominant arm monitor urine output follow kidney function and electrolytes Time Spent With Patient Time: Total time managing care of this patient today ____ minutes. Procedures Date of Service Date of Service: 07/20/22
[2022-07-20 12:49] LABS: Glucose, Whole Blood 112 mg/dL (60-115)
[2022-07-20 14:00] LABS: Iron 46 mcg/dL (30-160); Percent Iron Saturation 19 % (15-50); Total Iron Binding Capacity 245 mcg/dL (228-428); Unsaturated Iron Binding 199 ug/dL
--- NOTE | 2022-07-20 14:01 | MHC.CM.PN ---
07/20/22 13:54 - Case Mgmt Progress Note by Abbie Romeo Galeano Acct Num: [id number] : 1990 Patient Age: 31 CM met with Patient at bedside and addressed STEPHENS with her, original has been discussed verbally with Patient (she states that she is Blind) and a copy was left with Patient and a copy has been placed on the chart. Patient lives in an apartment with her Fiance and she receives 50 [employer] DENT[employer] RECEPTION[employer] hours/week. 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 Patient has received Moderna/Covid vax [address] is Dr. Beard. Initialized on 07/20/22 13:54 - END OF NOTE
[2022-07-20 14:20] LABS: Ferritin 101 ng/mL (10-122)
[2022-07-20 15:42] LABS: Glucose, Whole Blood 129 mg/dL (60-115)
[2022-07-20] MEDS: Acetaminophen 325 MG TABLET 650 MG PO (16:58)
[2022-07-20] MEDS: oxyCODONE HCl Immed Release 5 MG TABLET PO (16:59)
[2022-07-20] MEDS: 0.9 % Sodium Chloride Flush 3 ML SYRINGE IVFLUSH ×2 (17:01→22:22)
[2022-07-20] MEDS: Sodium Bicarbonate 650 MG TABLET PO (22:18)
[2022-07-20] MEDS: carvediloL 12.5 MG TABLET 25 MG PO (22:18)
[2022-07-21 04:00] VITALS: BP 138/72; PULSE 76; RESP 18; TEMP 36.8; O2SAT 98
[2022-07-21] MEDS: oxyCODONE HCl Immed Release 5 MG TABLET PO (04:11)
--- NOTE | 2022-07-21 05:46 | PC.NURSE ---
pt refused 21:00 poc. patient is alert and oriented x4.
[2022-07-21 07:28] VITALS: BP 138/77; PULSE 86; RESP 20; TEMP 36.4; O2SAT 92
[2022-07-21 07:36] LABS: Glucose, Whole Blood 113 mg/dL (60-115)
--- NOTE | 2022-07-21 08:09 | MHC.CM.PN ---
Patient's home O2 is supplied by [employer].
[2022-07-21] MEDS: hydrALAZINE HCl 50 MG TABLET PO (09:25)
[2022-07-21] MEDS: Ferrous Sulfate 324 MG TABLET.DR PO (09:25)
[2022-07-21] MEDS: carvediloL 12.5 MG TABLET 25 MG PO (09:25)
[2022-07-21] MEDS: 0.9 % Sodium Chloride Flush 3 ML SYRINGE IVFLUSH (09:25)
[2022-07-21] MEDS: Aspirin Enteric Coated 81 MG TABLET.DR PO (09:25)
[2022-07-21] MEDS: Furosemide 40 MG/4 ML VIAL IVPUSH (09:25)
[2022-07-21] MEDS: Sodium Bicarbonate 650 MG TABLET PO (09:25)
[2022-07-21] MEDS: NIFEdipine ER 90 MG TAB.ER.24 PO (09:25)
[2022-07-21] MEDS: Isosorbide Mononitrate 30 MG TAB.ER.24H PO (09:25)
--- NOTE | 2022-07-21 09:37 | PC.NURSE ---
report received from overnight RN. Pt refusing labs, notified. sql database administrator per APR. Pt stating she needs to leave by 10am for a court hearing. MD notified and pt advised she will have to leave AMA. Education given, pt verbalized understanding. IV and tele monitor removed, pt accompanied down in wheelchair by hospital staff.
--- NOTE | 2022-07-21 09:44 | PM.DS ---
DS: Providers Provider Date of Service: 07/21/22 Date of admission: 07/20/22 05:39 Date of discharge: 07/21/22 Primary care physician: Abdno Beard MD Consults: 07/20/22 05:48 Consult to Cardiology Routine Consulting Provider: [facility] [place] Cardiovascular Services Reason for consultation: pericardial effusion 07/20/22 08:43 Consult to Nephrology Routine Consulting Provider: [facility] Reason for consultation: CKD, CHF, elevated BP Has provider been notified: No Attending physician on discharge: Efraín Weeks Discharging clinician: Angela Ulloa DS: Diagnosis Discharge Diagnosis (1) CKD (chronic kidney disease) stage 4, GFR 15-29 ml/min: Status: Inactive (2) Metabolic acidosis: Status: Acute (3) HTN (hypertension): Status: Acute (4) Anemia: Status: Acute (5) Acute on chronic systolic and diastolic heart failure, NYHA class 3: Status: Acute DS: Summary Hospital Course Hospital Course: From H&P on day of admission This is a 31-year-old female with pertinent history of essential hypertension, congestive heart failure with reduced ejection fraction, 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 Patient states that started 4 days prior to presentation and it has been constant.? Not worse with exertion not relieved with rest.? Worse with deep inspiration.? She thinks she had fluid in her lungs. +orthopnea. Not taking her p.o. medications the last 3-4 days.? Patient denies fever, chills, palpitations, abdominal pain, changes in urinary or bowel habits In the emergency department, imaging concerning for pericardial effusion.? Blood pressure to 200/120 upon arrival Hypertensive emergency: Given IV labetalol and ordered nitropaste in the ER recent admission for same. h/o non-compliance. Bp meds resumed. bp improved Acute (mild) on chronic congestive HFrEF. EF 40-45% in past. due to elevated blood pressure. treated with IV Lasix. seen by cardiology. respiratory symptoms resolbed. Pericardial effusion on imaging:?echo obtained showing small pericardial effusion, seen on previous echo. Transaminitis no abdominal pain ?passive congestion from CHF. recommend holding statin until repeat labs obtained CKD stage 4/metabolic acidosis SCr near baseline continue baseline sodium bicarb follow renal function Acute on Chronic normocytic anemia r/t iron deficiently and chronic dz. transfuse 1U rbc. continued on iron supplementation. declined repeat labs this am. declined repeat labs this am, cbc, bmp and iron panel unable to be obtained. The importance of repeat labs were discussed with the patient, she continued to decline. the nurse paged that patient has elected to leave against medical advice and did not wait for provider. Time Spent with Patient Time attestation: Total time managing care of this patient today ____ minutes. Discharge coordination time: Greater than 30 minutes Quality: Safe Use of Opioids Does Pt have an Active Cancer Diagnosis on the Problem List?: No Quality: Stroke Does the patient have a stroke diagnosis?: No Physical Exam Vital Signs: Vital Signs: Last Vital Signs Temp 97.6 F 07/21/22 07:28 Pulse 86 07/21/22 07:28 Resp 20 07/21/22 07:28 BP 138/77 07/21/22 07:28 Pulse Ox 92 07/21/22 07:28 O2 Del Method Room Air 07/21/22 07:28 BMI result Body Mass Index 30.2 Const: General: comfortable, no acute distress, alert and awake Nutritional Appearance: average body habitus Orientation/consciousness: patient oriented x3 Resp: Effort & Inspection: normal respiratory effort, able to speak in complete sentences, no respiratory distress and no use of accessory muscles Cardio: Rate: regular rate GI: Inspection: No distended Palpation (GI): Soft to palpation Neuro: General: patient oriented x3, moves all extremities and CN's II-XI intact bilaterally Extrem: Other: s/p transmetatarsal amp left foot and multiple toe amps right foot General: Yes no pedal edema DS: Data Data Completed and Pending Completed studies during hospitalization [Text1]: Procedures Detachment at Right Foot, Partial 1st Ray, Open Approach (03/01/20) Detachment at Right Foot, Partial 2nd Ray, Open Approach (03/01/20) Detachment at Right Foot, Partial 3rd Ray, Open Approach (03/01/20) Detachment at Right Foot, Partial 4th Ray, Open Approach (03/01/20) Detachment at Right Foot, Partial 5th Ray, Open Approach (03/01/20) Drainage of Right Pleural Cavity, Percutaneous Approach (01/14/21) Insertion of Infusion Device into Superior Vena Cava, Percutaneous Approach (01/14/21) Removal of Infusion Device from Great Vessel, External Approach (01/14/21) Transfusion of Nonautologous Red Blood Cells into Peripheral Vein, Percutaneous Approach (04/22/22) Labs on day of discharge: Laboratory Results - last 24 hr 07/20/22 07/20/22 07/20/22 10:31 10:31 12:45 Sodium 138 Potassium 4.5 Chloride 110 H Carbon Dioxide 16 L Anion Gap 17 BUN 48 H Creatinine 3.99 H Estim Creat Clear Calc 20.4 Estimated GFR 13 POC Glucose 112 Random Glucose 116 H Calcium 8.5 Iron 46 TIBC 245 % Saturation 19 Unsat Iron Binding 199 Ferritin 101 Total Bilirubin 1.7 H Direct Bilirubin 0.6 H AST 254 H ALT 286 H Alkaline Phosphatase 100 Total Protein 6.0 L Albumin 2.9 L Blood Type A Positive Antibody Screen NEGATIVE Crossmatch See Detail 07/20/22 07/21/22 15:24 07:32 Sodium Potassium Chloride Carbon Dioxide Anion Gap BUN Creatinine Estim Creat Clear Calc Estimated GFR POC Glucose 129 H 113 Random Glucose Calcium Iron TIBC % Saturation Unsat Iron Binding Ferritin Total Bilirubin Direct Bilirubin AST ALT Alkaline Phosphatase Total Protein Albumin Blood Type Antibody Screen Crossmatch Preliminary micro results at discharge 07/20/22 06:16 Blood Culture - Preliminary Blood - Venous No growth after 24 hours. 07/20/22 06:16 Blood Culture - Preliminary Blood - Venous No growth after 24 hours. Discharge Plan Discharge Patient Disposition: Left Against Medical Advice Discharge Diagnosis: hypertensive urgency acute on chronic heart failure acute on chronic anemia CKD4 Referrals: Abdon Beard MD [Primary Care Provider] - 1 Week Discharge Medications: No Action acetaminophen 325 mg tablet 650 mg PO Q4H PRN (Reason: Pain) aspirin 81 mg tablet,delayed release (DR/EC) 1 tab PO DAILY pantoprazole 40 mg tablet,delayed release (DR/EC) 1 tab PO DAILY@0630 isosorbide mononitrate 30 mg tablet extended release 24 hr 30 mg PO DAILY Qty: 30 0RF prednisone 10 mg tablet See Taper PO DAILY Qty: 74 0RF Taper: Prednisone 40 mg daily for 7 Days and 0 Hour 30 mg daily for 7 Days and 0 Hour 20 mg daily for 7 Days and 0 Hour 10 mg daily for 7 Days and 0 Hour 5 mg daily for 7 Days docusate sodium 100 mg capsule 100 mg PO DAILY PRN (Reason: constipation) ferrous fumarate [Ferrocite] 324 mg (106 mg iron) tablet 324 mg PO DAILY carvedilol 12.5 mg Tablet 25 mg PO BID Qty: 60 0RF Protocol: Hold for SBP/HR < HOLD for SBP < : 90 HOLD for HR < : 60 nifedipine 60 mg Tablet Extended Release 24hr 60 mg PO DAILY Qty: 30 0RF Protocol: Hold for SBP< HOLD for SBP < : 90 torsemide 40 mg tablet 40 mg PO BID@0630,1630 Qty: 60 0RF Discharge Orders: Discharge Order (Routine); Ordered 07/21/22 Ordered By: Angela Ulloa Care Plan Goals: compliance with medications and follow up with medical providers including cardiology and nephrology to prevent re-admission Health Concerns: hypertensive urgency Chest pain CKD 4 Acute on chronic heart failure with reduced ejection fraction Plan of Treatment: recommend call to schedule follow-up appointment with PCP keep follow-up appointments with cardiology and Nephrology take all medications as prescribed recommend to hold statin until liver function tests can be repeated and return to normal Assessment: See discharge summary Discharge Date/Time: 07/21/22 10:02
--- NOTE | 2022-07-21 10:29 | MHC.CM.PN ---
Patient has left AMA.
== END 2022-07-21 10:02 | disposition left against medical advice (07) ==
LOC: HO.ED 07-20 06:01 → HO.EDOVER 07-20 06:04 → HO.IMC 07-20 11:47
PROVIDERS: Admitting Provider Student in an Organized Health Care Education/Training Program; Emergency Provider Emergency Medicine; PCP Internal Medicine; Visit Provider Physician Assistant Medical
DX: I16.1 Hypertensive emergency (principal); R07.9 Chest pain, unspecified; E87.20 Acidosis, unspecified; I31.39 Other pericardial effusion (noninflammatory); R51.9 Headache, unspecified; E11.22 Type 2 diabetes mellitus with diabetic chronic kidney disease; I13.0 Hypertensive heart and chronic kidney disease with heart failure and stage 1 through stage 4 chronic kidney disease, or unspecified chronic kidney disease; I50.43 Acute on chronic combined systolic (congestive) and diastolic (congestive) heart failure; N18.4 Chronic kidney disease, stage 4 (severe); D63.1 Anemia in chronic kidney disease; R06.00 Dyspnea, unspecified; R06.01 Orthopnea; R74.01 Elevation of levels of liver transaminase levels; Z79.82 Long term (current) use of aspirin; Z79.4 Long term (current) use of insulin; Z79.899 Other long term (current) drug therapy
CPT/HCPCS: 36415; 70450; 71045; 80048; 80053; 80076; 82248; 82728; 82947; 83540; 83605; 83690; 83735; 83880; 84484; 85025; 85610; 86850; 86900; 86901; 86923; 87040; 93005; 93306; 96372; 96374; 96375; 96376; 99222; 99285; J1170; J1650; J1940; J2405; P9016; Q9957

== ENCOUNTER 2022-07-24 16:59 | Inpatient (IN) | payer OTHER, SELFPAY ==
[2022-07-24] VITALS (8 sets, daily range): BP systolic 170–214; BP diastolic 91–122; PULSE 95–124; RESP 13–22; TEMP 36.9–39.5; O2SAT 94–99; BMI 31.5
--- NOTE | ~2022-07-24 | XR_ITS ---
EXAMINATION: XR CHEST CLINICAL INFORMATION: Pain COMPARISON: 07/19/2022 and selected priors TECHNIQUE: AP upright view of the chest was obtained. Nonstandard positioning. Overlying ECG leads. FINDINGS: Stable nonspecific prominence of the cardiac silhouette. Normal caliber pulmonary vasculature. Persistent elevation of the right diaphragm. Hepatomegaly on recent CT. No focal consolidation, effusion or pneumothorax. No acute osseous finding. Nonobstructive gas pattern. Recent CT with small effusions apparently resolved. XR/XR chest 1V IMPRESSION: Stable compared with 07/19/2022. Minor elevation of the right diaphragm a persistent finding likely related to hepatomegaly.
--- NOTE | ~2022-07-24 | CT_ITS ---
EXAMINATION: CT CHEST, ABDOMEN AND PELVIS WITHOUT CONTRAST CLINICAL INFORMATION: Chest and abdominal pain COMPARISON: Chest radiograph earlier today, CT chest abdomen pelvis 07/06/2022 TECHNIQUE: Multidetector volumetric imaging was performed from the thoracic inlet through the pubic symphysis without IV contrast. Sagittal and coronal reformatted images were obtained on the technologist's workstation. This CT examination was performed using dose optimization techniques as appropriate, variously including the following: *Automated exposure control *Adjustment of mA and/or kV according to patient size (this includes techniques or standardized protocols for targeted exams where dose is matched to indication/reason for exam; i.e. extremities or head) *Use of iterative reconstruction technique DLP: 255 and 569 mGy-cm, chest and abdomen/pelvis respectively FINDINGS: CHEST: Lung: Some tiny pulmonary micronodules are present which are unchanged when compared to the prior study from a few weeks ago. Blount images of all have been saved. Mediastinum: Small amount of air is present in the jugular vein, probably from the patient's IV. Heart size normal. No mediastinal or hilar lymphadenopathy. Rounded density seen in the anterior mediastinum measuring 1.4 cm measures fluid density. No mediastinal or hilar lymphadenopathy is seen. Evaluation less than optimal without IV contrast. Pericardium/Pleura: There is continued decrease in size of pleural effusions since 07/06/2022 with a small right pleural effusion remaining and resolution of previously seen small left pleural effusion. There is a trace pericardial effusion. Chest Wall/Axilla: Unremarkable ABDOMEN/PELVIS: Peritoneal Space: No significant free air or free fluid identified. Liver, Gallbladder, Biliary Tree: The liver is enlarged measuring 21 cm in length. Attenuation is greater than the spleen. No focal masses or biliary ductal dilatation present. Status post cholecystectomy with clips in the gallbladder fossa. Pancreas: No pancreatic abnormality is seen. Spleen: Spleen mildly enlarged at 13.4 cm Adrenal Glands: Unremarkable Kidneys and Ureters: The kidneys are normal in size, shape, and attenuation. Calcifications in the kidneys may be a renovascular. It would be difficult to exclude a tiny punctate nephrolith. No hydronephrosis, hydroureter, or ureteral calculi seen. No perinephric stranding. Bladder: Unremarkable Gastrointestinal Tract: The small and large bowel are unremarkable. The appendix is unremarkable. Abdominal Wall: No significant hernia is appreciated. Mild anasarca appears minimally improved. Lymph Nodes: No retroperitoneal lymphadenopathy. Some small retroperitoneal lymph nodes are present. Prominent inguinal and femoral lymph nodes are present (see blount images). Vascular: The aorta appears normal.. The IVC appears unremarkable. PELVIC VISCERA: The uterus and adnexa are unremarkable. Small amount of free fluid is present in the cul-de-sac OSSEUS STRUCTURES: Mild degenerative changes are noted in the spine, most marked at L4-L5. No bony destructive lesions are seen. CT/CT abdomen pelvis wo IV con IMPRESSION: 1. Continued decrease in size of pleural effusions. 2. No acute intrathoracic disease. 3. Incidental note made of tiny pulmonary micronodules, trace pericardial effusion, cholecystectomy, hepatosplenomegaly and prominent inguinal and femoral lymph nodes. 4. A cause for the patient's abdominal pain and chest pain has not been found. Fleischner guidelines were followed.
--- NOTE | ~2022-07-24 | XR_ITS ---
EXAMINATION: XR FOOT, LEFT CLINICAL INFORMATION: Left foot pain. COMPARISON: Left foot radiographs dated 06/08/2022. TECHNIQUE: AP, lateral, and oblique views of the left foot. FINDINGS: Chronic postsurgical changes are seen with subtotal resection of the first metatarsal. Status post resection of the fifth digit phalanges. Chronic appearing deformity in the distal fourth metatarsal as well as at the fourth metatarsophalangeal joint. Chronic deformity in degenerative changes at the proximal second, third and fourth metatarsals and tarsometatarsal joints. There is flattening of the normal foot arch. Mild to moderate soft tissue swelling is seen. XR/XR foot LT min 3V IMPRESSION: Chronic and postsurgical/traumatic changes as detailed above with associated deformity, but no definitive acute abnormality. No overt evidence for osteomyelitis.
--- NOTE | ~2022-07-24 | US_ITS ---
EXAMINATION: US VENOUS ULTRASOUND WITH DOPPLER LOWER EXTREMITY, LEFT CLINICAL INFORMATION: Pain and fever COMPARISON: None available. TECHNIQUE: Ultrasound of the deep veins is performed from the hip to the calf with compression sonography and color and pulse Doppler assessment. Spectral analysis with color-flow imaging is performed. FINDINGS: There is normal venous compression and respiratory variation and augmented flow. The visualized common femoral vein, superficial femoral vein, profunda femoral vein, popliteal vein, and the trifurcation region shows no evidence of deep venous thrombosis. There are small lymph nodes in the left groin and likely popliteal fossa. Largest left groin lymph node measures 4.47 x 1.47 x 3.16 cm. Small lymph node in the left popliteal fossa measures 0.776 x 0.502 x 0.763). There is no significant popliteal fossa cyst. If the patient's symptoms persist, followup ultrasound in 5 days 7 days might be of value to exclude proximal propagation from a non-visualized calf vein. US/US venous duplex LE LT IMPRESSION: 1. No DVT demonstrated in the left lower extremity. 2. Small lymph nodes in the left groin and popliteal fossa.
--- NOTE | 2022-07-24 17:19 | ED_ITS ---
HPI - General Adult General Chief complaint: General Medical Stated complaint: nausea vomiting general weakness Time Seen by Provider: 07/24/22 17:14 Source: patient, RN notes reviewed and old records reviewed Mode of arrival: EMS Limitations: no limitations History of Present Illness HPI narrative: 31-year-old female past medical history significant for chronic kidney disease, uncontrolled hypertension, heart failure, anemia who presents for evaluation of chest pain. Patient is a very poor historian. She reports chest pain and vomiting that started today. She is unsure if she has had any fevers but endorses chills She also reports she has had abdominal pain ?all over. ? She reports a history of Caesarean section but no other abdominal surgeries Her pain is 10/10 On arrival, the patient's vital signs are as follows, temperature of 103.1?, heart rate of 124, blood pressure of 214/122. Oxygen 94% on room air and respiratory rate of 14 Patient reports that she is not on dialysis but she does not know which medications she is taking Unclear if she is compliant with her medication Related Data Home Medications Medication Instructions Recorded Confirmed acetaminophen 325 mg tablet 650 mg PO Q4H PRN Pain 04/01/22 07/20/22 aspirin 81 mg tablet,delayed 1 tab PO DAILY 04/01/22 07/20/22 release pantoprazole 40 mg tablet,delayed 1 tab PO DAILY@0630 04/01/22 07/20/22 release oxycodone 5 mg tablet 5 mg PO Q6H PRN severe pain 06/07/22 07/20/22 docusate sodium 100 mg capsule 100 mg PO DAILY PRN constipation 07/06/22 07/20/22 ferrous fumarate 324 mg (106 mg 324 mg PO DAILY 07/06/22 07/20/22 iron) tablet (Ferrocite) Previous Rx's Medication Instructions Recorded isosorbide mononitrate 30 mg 30 mg PO DAILY #30 tabs 05/14/22 tablet,extended release 24 hr sodium bicarbonate 650 mg tablet 650 mg PO BID #60 tabs 06/12/22 carvedilol 12.5 mg tablet 25 mg PO BID #60 tabs 07/11/22 hydralazine 25 mg tablet 75 mg PO TID #270 tabs 07/11/22 nifedipine 60 mg tablet,extended 60 mg PO DAILY #30 tabs 07/11/22 release 24 hr torsemide 40 mg tablet 40 mg PO BID@0630,9890 #60 tabs 07/11/22 Allergies Allergy/AdvReac Type Severity Reaction Status Date / Time morphine [MORPHINE] Allergy Intermediate Itching Verified 07/06/22 16:17 azithromycin [From Zithromax] Allergy Hives Verified 07/06/22 16:17 gabapentin Allergy Facial Verified 07/06/22 16:17 Swelling tramadol Allergy Facial Verified 07/06/22 16:17 Swelling vancomycin Allergy Hives Verified 07/06/22 16:17 Review of Systems Constitutional: Constitutional: Reports body ache(s), Reports chills and Reports headache(s) ENT: Reports headache(s) Cardiovascular: Cardiovascular: Reports chest pain and Denies dyspnea Respiratory: Respiratory: Denies dyspnea Gastrointestinal: Gastrointestinal: Reports abdominal pain, Denies constipation, Denies diarrhea, Reports nausea and Reports vomiting Integumentary/Breasts: Skin/Breast: Denies rash Neurologic: Reports headache(s) [facility] Past Medical History Medical History (Updated 07/24/22 @ 22:22 by Michele Putnam) Abnormal finding on echocardiogram Acute dyspnea Acute worsening of stage 3 chronic kidney disease MYNOR (acute kidney injury) Anemia Anemia in chronic kidney disease (CKD) Asthma Back pain Blind right eye Bone infection Cellulitis Cellulitis and abscess of foot delivery delivered Chest pain CHF (congestive heart failure) (~06/07/22) CKD (chronic kidney disease) CKD (chronic kidney disease) Depression with anxiety Diabetes Diabetic retinopathy DM foot ulcer Elevated troponin Essential hypertension Fever Generalized edema HTN (hypertension) Hypertension (~06/10/22) Migraine Osteomyelitis PAD (peripheral artery disease) Pleural effusion test positive test positive Sepsis Severe anemia Tachycardia Type 2 diabetes mellitus with hyperglycemia, with long-term current use of insulin Surgical History History of transmetatarsal amputation of foot S/P transmetatarsal amputation of foot Family History Family History Mother Coronary artery disease Myocardial infarction Stroke Diabetes mellitus Father Myocardial infarction Social History Social History Household Members: Significant Other Household Members Other:: Sister, [id number], nephew Housing: Apartment Do you presently have visiting nurse or other home services: Yes (services) Alcohol intake: never Patient Tobacco Use Status: Never used Tobacco e-Cigarette/Vaping Use: Never Used Second Hand Smoke Exposure: No Advance Directives: No Advance Directives Information Provided: No Advance Directives Date on File: 03/08/20 service: No Current occupational status: disabled Gender identity: Female Physical Exam ED Vital Signs: Vital Signs - 24 hr 07/24/22 17:14 07/24/22 17:15 07/24/22 18:02 Temperature 103.1 F H 103.1 F H Pulse Rate 124 H 124 H 117 H Respiratory Rate 14 14 20 Blood Pressure 214/122 H 214/122 H 209/112 H Pulse Oximetry 94 94 94 Oxygen Delivery Method Room Air Room Air Room Air 07/24/22 18:23 07/24/22 18:46 07/24/22 19:00 Temperature 99.6 F 99.6 F 99.1 F Pulse Rate 116 H 110 H 107 H Respiratory Rate 16 22 H 16 Blood Pressure 199/108 H 194/106 H 185/99 H Pulse Oximetry 94 94 95 Oxygen Delivery Method Room Air Room Air Room Air 07/24/22 19:51 Temperature Pulse Rate 101 H Respiratory Rate 13 Blood Pressure 170/91 H Pulse Oximetry 96 Oxygen Delivery Method Room Air BMI result Body Mass Index 31.5 Const General: comfortable and no acute distress Nutritional Appearance: obese Orientation/consciousness: oriented to person, oriented to place and oriented to time Limitations: no limitations HENMT Head: Yes normocephalic and Yes atraumatic Throat: Yes posterior oropharynx normal Eyes Eyelids: Yes eyelids normal Conjunctivae: conjunctivae normal Sclerae: sclerae normal Corneas: corneas normal Pupils: Equal, round and reactive pupils present EOM: EOMs intact bilaterally Neck Neck: Yes full ROM Resp Effort & Inspection: normal respiratory effort, able to speak in complete sentences, no audible wheezes and not labored Auscultation: clear to auscultation bilaterally Cardio Rate: abnormal rate Rhythm: regular rhythm GI Inspection: No Abdominal wall edema and No distended Palpation (GI): Soft to palpation, not firm and Tenderness to palpation present (GI) (Diffuse tenderness with guarding entire abdomen. The abdomen is soft) Auscultation: normoactive bowel sounds Skin Other: Patient does has a diabetic ulcer on the plantar surface of the left foot. There is a proximally 1 cm small open wound, about 3 cm area extending around of black eschar. No significant erythema. There is mild increased warmth General skin exam: no rashes or lesions noted and elasticity normal Neuro General: oriented to person, oriented to place and oriented to time Cranial nerves: Yes Equal, round and reactive pupils present and Yes Bilaterally intact EOM present Cognition (Neuro): normal cognition Extrem Other: Moving all extremities well without any obvious deformities Course Reevaluation(s) Reevaluation #1: Patient be treated with Zosyn as empiric treatment for sepsis. Current unknown source. Chemistry still pending. Added on CT scan of the chest and abdomen Time: 18:32 Reevaluation #2: All the patient's images have resulted and there is no clear source of infection to this point. I discussed with the hospitalist will admit the patient for fever and sepsis. The patient has already received broad-spectrum antibiotics. Time: 22:21 Medications Administered Discontinued Medications Generic Name Dose Route Start Last Admin Trade Name Momoq PRN Reason Stop Dose Admin Acetaminophen 975 mg 07/24/22 17:19 07/24/22 17:42 Acetaminophen 325 Mg Tablet PO 07/24/22 17:20 975 mg ONCE ONE Administration Hydromorphone HCl 0.5 mg 07/24/22 18:52 07/24/22 18:59 Hydromorphone Hcl 0.5 Mg/0.5 Ml Syringe IVPUSH 07/24/22 18:53 0.5 mg ONCE ONE Administration Protocol Sodium Chloride 500 mls @ 500 mls/hr 07/24/22 17:30 07/24/22 18:46 Ns IV 07/24/22 18:29 Infused .Q1H VASILE Infusion Piperacillin Sod/Tazobactam 50 mls @ 100 mls/hr 07/24/22 18:31 07/24/22 19:30 Sod 3.375 gm/ Sodium Chloride IV 07/24/22 19:00 Infused ONCE ONE Infusion Ondansetron HCl 4 mg 07/24/22 17:19 07/24/22 17:50 Ondansetron Hcl 4 Mg/2 Ml Vial IVPUSH 07/24/22 17:20 4 mg ONCE ONE Administration Medical Decision Making Medical Decision Making MDM Narrative: Patient arrives febrile, tachycardic. Unknown cause of the fever this time. Possibly viral. Despite the chronic diabetic ulcer to the left foot, No skin rashes to suggest cellulitis. Will get chest x-ray, labs, urine, consider CT imaging if indicated. Blood cultures and lactic acid ordered. Given the patient's history of heart failure we will start with a bolus of normal saline 500 cc. Tylenol was given as well as Zofran. A sepsis protocol was called Differential Diagnosis Pneumonia UTI Substance Influenza Cholecystitis Pyelonephritis Lab Data 07/24/22 17:35 07/24/22 17:35 Labs: Lab Results 07/24/22 07/24/22 07/24/22 Range/Units 17:35 17:35 17:35 WBC 15.3 H (4.8-10.8) X10*3/uL RBC 3.50 L D (4.20-5.50) X10*6/uL Hgb 9.4 L D (12.0-16.0) g/dl Hct 29.9 L D (37.0-47.0) % MCV 85.4 (80.0-98.0) fL MCH 26.9 L (27.0-33.0) pg MCHC 31.4 (31.0-35.0) g/dl RDW 19.7 H (11.0-16.0) % Plt Count 141 L (160-400) X10*3/uL MPV 12.9 H (9.4-12.3) fL Immature Gran % (Auto) 0.5 H (0.0-0.4) % Neut % (Auto) 95.2 H (45-73) % Lymph % (Auto) 1.4 L (20-40) % [place] % (Auto) 2.8 (2-11) % Eos % (Auto) 0.0 (0-4) % Baso % (Auto) 0.1 (0-2) % Lymph # (Auto) 0.2 L (1.2-4.9) X10*3/uL [place] # (Auto) 0.4 (0.1-1.2) X10*3/uL Eos # (Auto) 0.0 (0.0-0.4) X10*3/uL Baso # (Auto) 0.0 (0.0-0.2) X10*3/uL Abs Immat Gran (auto) 0.07 H (0.00-0.03) X10*3/uL Absolute Neuts (auto) 14.5 H (2.0-8.3) x10*3/uL Absolute Nucleated RBC 0.000 (0.0-0.012) X10*3/uL Nucleated RBC % (auto) 0.0 (0.0-0.2) /100WBC PT 14.5 H (10.0-13.1) SEC INR 1.3 H (0.9-1.1) APTT 32.4 (26.0-36.4) SEC Sodium (135-145) mmol/L Potassium (3.3-5.1) mmol/L Chloride (96-108) mmol/L Carbon Dioxide (22-29) mmol/L Anion Gap (12-20) BUN (9-16) mg/dL Creatinine (0.5-1.4) mg/dL Estim Creat Clear Calc Estimated GFR Random Glucose (60-115) mg/dL Lactic Acid 1.6 (0.5-2.0) mmol/L Calcium (8.4-10.2) mg/dL Magnesium (1.6-2.6) mg/dL Total Bilirubin (0.0-1.0) mg/dL AST (5-31) U/L ALT (0-31) U/L Alkaline Phosphatase (39-117) U/L C-Reactive Protein (< or = 0.50) mg/dL Total Protein (6.5-8.0) g/dL Albumin (3.5-5.0) g/dL Lipase (8-78) U/L Beta HCG, Quant mIU/mL Urine Color Urine Appearance Urine pH (5.0-9.0) Ur Specific [place] (1.005-1.025) Urine Protein (Neg-Trace) mg/dL Urine Glucose (UA) (Negative) mg/dL Urine Ketones (Negative) mg/dL Urine Blood (Negative) Urine Nitrite (Negative) Ur Leukocyte Esterase (Negative) Urine RBC (0-2) /HPF Urine WBC (0-5) /HPF Ur Squamous Epith Cells (0-2) /HPF Urine Bacteria (None Seen) Hyaline Casts (0-2) /LPF Urine Test (NEGATIVE) Urine Opiates Screen (Not Detect) Urine Fentanyl Screen (Not Detect) Ur Barbiturates Screen (Not Detect) Ur Phencyclidine Scrn (Not Detect) Ur Amphetamines Screen (Not Detect) U Benzodiazepines Scrn (Not Detect) Urine Cocaine Screen (Not Detect) U Marijuana (THC) Screen (Not Detect) COVID-19 (CARO) (Negative) COVID-19 Clin Com Influenza Type A (MILTON) (Negative) Influenza Type B (MILTON) (Negative) Influenza A & B Note 07/24/22 07/24/22 07/24/22 Range/Units 17:37 17:38 19:50 WBC (4.8-10.8) X10*3/uL RBC (4.20-5.50) X10*6/uL Hgb (12.0-16.0) g/dl Hct (37.0-47.0) % MCV (80.0-98.0) fL MCH (27.0-33.0) pg MCHC (31.0-35.0) g/dl RDW (11.0-16.0) % Plt Count (160-400) X10*3/uL MPV (9.4-12.3) fL Immature Gran % (Auto) (0.0-0.4) % Neut % (Auto) (45-73) % Lymph % (Auto) (20-40) % [place] % (Auto) (2-11) % Eos % (Auto) (0-4) % Baso % (Auto) (0-2) % Lymph # (Auto) (1.2-4.9) X10*3/uL [place] # (Auto) (0.1-1.2) X10*3/uL Eos # (Auto) (0.0-0.4) X10*3/uL Baso # (Auto) (0.0-0.2) X10*3/uL Abs Immat Gran (auto) (0.00-0.03) X10*3/uL Absolute Neuts (auto) (2.0-8.3) x10*3/uL Absolute Nucleated RBC (0.0-0.012) X10*3/uL Nucleated RBC % (auto) (0.0-0.2) /100WBC PT (10.0-13.1) SEC INR (0.9-1.1) APTT (26.0-36.4) SEC Sodium 140 (135-145) mmol/L Potassium 3.9 (3.3-5.1) mmol/L Chloride 112 H (96-108) mmol/L Carbon Dioxide 16 L (22-29) mmol/L Anion Gap 16 (12-20) BUN 61 H (9-16) mg/dL Creatinine 4.54 H* (0.5-1.4) mg/dL Estim Creat Clear Calc 19.0 Estimated GFR 11 Random Glucose 138 H (60-115) mg/dL Lactic Acid (0.5-2.0) mmol/L Calcium 7.5 L D (8.4-10.2) mg/dL Magnesium 2.0 (1.6-2.6) mg/dL Total Bilirubin 1.7 H (0.0-1.0) mg/dL AST 26 (5-31) U/L ALT 85 H (0-31) U/L Alkaline Phosphatase 86 (39-117) U/L C-Reactive Protein 4.99 H (< or = 0.50) mg/dL Total Protein 5.8 L (6.5-8.0) g/dL Albumin 2.8 L (3.5-5.0) g/dL Lipase 24 (8-78) U/L Beta HCG, Quant < 2 mIU/mL Urine Color Urine Appearance Urine pH (5.0-9.0) Ur Specific [place] (1.005-1.025) Urine Protein (Neg-Trace) mg/dL Urine Glucose (UA) (Negative) mg/dL Urine Ketones (Negative) mg/dL Urine Blood (Negative) Urine Nitrite (Negative) Ur Leukocyte Esterase (Negative) Urine RBC (0-2) /HPF Urine WBC (0-5) /HPF Ur Squamous Epith Cells (0-2) /HPF Urine Bacteria (None Seen) Hyaline Casts (0-2) /LPF Urine Test (NEGATIVE) Urine Opiates Screen (Not Detect) Urine Fentanyl Screen (Not Detect) Ur Barbiturates Screen (Not Detect) Ur Phencyclidine Scrn (Not Detect) Ur Amphetamines Screen (Not Detect) U Benzodiazepines Scrn (Not Detect) Urine Cocaine Screen (Not Detect) U Marijuana (THC) Screen (Not Detect) COVID-19 (CARO) Negative (Negative) COVID-19 Clin Com See Note Influenza Type A (MILTON) Negative (Negative) Influenza Type B (MILTON) Negative (Negative) Influenza A & B Note See Note 07/24/22 07/24/22 07/24/22 Range/Units 20:46 20:46 20:46 WBC (4.8-10.8) X10*3/uL RBC (4.20-5.50) X10*6/uL Hgb (12.0-16.0) g/dl Hct (37.0-47.0) % MCV (80.0-98.0) fL MCH (27.0-33.0) pg MCHC (31.0-35.0) g/dl RDW (11.0-16.0) % Plt Count (160-400) X10*3/uL MPV (9.4-12.3) fL Immature Gran % (Auto) (0.0-0.4) % Neut % (Auto) (45-73) % Lymph % (Auto) (20-40) % [place] % (Auto) (2-11) % Eos % (Auto) (0-4) % Baso % (Auto) (0-2) % Lymph # (Auto) (1.2-4.9) X10*3/uL [place] # (Auto) (0.1-1.2) X10*3/uL Eos # (Auto) (0.0-0.4) X10*3/uL Baso # (Auto) (0.0-0.2) X10*3/uL Abs Immat Gran (auto) (0.00-0.03) X10*3/uL Absolute Neuts (auto) (2.0-8.3) x10*3/uL Absolute Nucleated RBC (0.0-0.012) X10*3/uL Nucleated RBC % (auto) (0.0-0.2) /100WBC PT (10.0-13.1) SEC INR (0.9-1.1) APTT (26.0-36.4) SEC Sodium (135-145) mmol/L Potassium (3.3-5.1) mmol/L Chloride (96-108) mmol/L Carbon Dioxide (22-29) mmol/L Anion Gap (12-20) BUN (9-16) mg/dL Creatinine (0.5-1.4) mg/dL Estim Creat Clear Calc Estimated GFR Random Glucose (60-115) mg/dL Lactic Acid (0.5-2.0) mmol/L Calcium (8.4-10.2) mg/dL Magnesium (1.6-2.6) mg/dL Total Bilirubin (0.0-1.0) mg/dL AST (5-31) U/L ALT (0-31) U/L Alkaline Phosphatase (39-117) U/L C-Reactive Protein (< or = 0.50) mg/dL Total Protein (6.5-8.0) g/dL Albumin (3.5-5.0) g/dL Lipase (8-78) U/L Beta HCG, Quant mIU/mL Urine Color Yellow Urine Appearance Clear Urine pH 6.0 (5.0-9.0) Ur Specific [place] 1.025 (1.005-1.025) Urine Protein >=1000 (4+) H (Neg-Trace) mg/dL Urine Glucose (UA) 500 H (Negative) mg/dL Urine Ketones Trace (Negative) mg/dL Urine Blood Moderate (2+) H (Negative) Urine Nitrite Negative (Negative) Ur Leukocyte Esterase Negative (Negative) Urine RBC 3-5 H (0-2) /HPF Urine WBC 0-5 (0-5) /HPF Ur Squamous Epith Cells 0-2 (0-2) /HPF Urine Bacteria 4+ (None Seen) Hyaline Casts 3-5 (0-2) /LPF Urine Test NEGATIVE (NEGATIVE) Urine Opiates Screen Not Detected (Not Detect) Urine Fentanyl Screen Not Detected (Not Detect) Ur Barbiturates Screen Not Detected (Not Detect) Ur Phencyclidine Scrn Not Detected (Not Detect) Ur Amphetamines Screen Not Detected (Not Detect) U Benzodiazepines Scrn Not Detected (Not Detect) Urine Cocaine Screen Not Detected (Not Detect) U Marijuana (THC) Screen Not Detected (Not Detect) COVID-19 (CARO) (Negative) COVID-19 Clin Com Influenza Type A (MILTON) (Negative) Influenza Type B (MILTON) (Negative) Influenza A & B Note Discharge Plan Discharge Clinical Impression: Fever Patient Disposition: Admitted As Inpatient Prescriptions: No Action acetaminophen 325 mg tablet 650 mg PO Q4H PRN (Reason: Pain) aspirin 81 mg tablet,delayed release (DR/EC) 1 tab PO DAILY pantoprazole 40 mg tablet,delayed release (DR/EC) 1 tab PO DAILY@0630 isosorbide mononitrate 30 mg tablet extended release 24 hr 30 mg PO DAILY Qty: 30 0RF oxycodone 5 mg tablet 5 mg PO Q6H PRN (Reason: severe pain) sodium bicarbonate 650 mg Tablet 650 mg PO BID Qty: 60 0RF docusate sodium 100 mg capsule 100 mg PO DAILY PRN (Reason: constipation) ferrous fumarate [Ferrocite] 324 mg (106 mg iron) tablet 324 mg PO DAILY carvedilol 12.5 mg Tablet 25 mg PO BID Qty: 60 0RF Protocol: Hold for SBP/HR < HOLD for SBP < : 90 HOLD for HR < : 60 hydralazine 25 mg Tablet 75 mg PO TID Qty: 270 0RF Protocol: Hold for SBP< HOLD for SBP < : 90 nifedipine 60 mg Tablet Extended Release 24hr 60 mg PO DAILY Qty: 30 0RF Protocol: Hold for SBP< HOLD for SBP < : 90 torsemide 40 mg tablet 40 mg PO BID@0630,1630 Qty: 60 0RF
--- NOTE | 2022-07-24 17:20 | ECG_ITS ---
Test Reason : CHEST PAIN Blood Pressure : / mmHG Vent. Rate : 119 BPM Atrial Rate : 119 BPM P-R Int : 140 ms QRS Dur : 138 ms QT Int : 358 ms P-R-T Axes : 077 001 078 degrees QTc Int : 503 ms Sinus tachycardia Possible Left atrial enlargement Right bundle branch block T wave abnormality, consider lateral ischemia Abnormal ECG When compared with ECG of 19-JUL-2022 22:03, Nonspecific T wave abnormality now evident in Inferior leads T wave inversion now evident in Anterolateral leads Referred By: Michele Putnam Electronically Signed By:HATTIE BAÑUELOS MD
[2022-07-24] MEDS: Acetaminophen 325 MG TABLET 975 MG PO ×2 (17:42→22:58)
[2022-07-24 17:43] LABS: MANUAL DIFF FLAG NO
[2022-07-24] MEDS: 0.9 % Sodium Chloride 500 ML IV (17:46)
[2022-07-24] MEDS: ondansetron HCL 4 MG/2 ML VIAL IVPUSH (17:50)
[2022-07-24 17:58] LABS: Lactic Acid 1.6 mmol/L (0.5-2.0)
[2022-07-24 17:59] LABS: Basophils Percent Auto 0.1 % (0-2); Hematocrit 29.9 % (37.0-47.0); Hemoglobin 9.4 g/dl (12.0-16.0); Imm Gran Abs Auto 0.07 X10*3/uL (0.00-0.03); Imm Gran Pct Auto 0.5 % (0.0-0.4); Lymphocytes Absolute Auto 0.2 X10*3/uL (1.2-4.9); Lymphocytes Percent Auto 1.4 % (20-40); Mean Corpuscular HGB Conc 31.4 g/dl (31.0-35.0); Mean Corpuscular Hemoglobin 26.9 pg (27.0-33.0); Mean Corpuscular Volume 85.4 fL (80.0-98.0); Mean Platelet Volume 12.9 fL (9.4-12.3); Monocytes Absolute Auto 0.4 X10*3/uL (0.1-1.2); Monocytes Percent Auto 2.8 % (2-11); Neutrophils Absolute Auto 14.5 x10*3/uL (2.0-8.3); Neutrophils Percent Auto 95.2 % (45-73); Platelet Count 141 X10*3/uL (160-400); Red Cell Distribution Width 19.7 % (11.0-16.0); SCAN SMEAR FLAG 1; White Blood Count 15.3 X10*3/uL (4.8-10.8)
[2022-07-24 18:02] LABS: INTERNATIONAL NORM RATIO 1.3 (0.9-1.1); Prothrombin Time 14.5 SEC (10.0-13.1)
[2022-07-24 18:04] LABS: Partial Thromboplastin Time 32.4 SEC (26.0-36.4)
--- NOTE | 2022-07-24 18:04 | PC.NURSE ---
recent admission for similar complaints. fever upon arrival - oral tylenol given, iv established fluids infusing.
[2022-07-24 18:06] LABS: IDNOW Serial# BCCEAD1C; Influenza A Negative (Negative); Influenza B2 Negative (Negative)
[2022-07-24 18:06] LABS: COVID-19 Test Negative (Negative); IDNOW Serial# 08D9AD1C
--- NOTE | 2022-07-24 18:40 | MHC.EDTECH ---
Patient moved while getting blood draw causing to lose the blood flow. Asked patient if this tech could check another site and patient refused. Nurse and PA aware.
[2022-07-24] MEDS: Piperacillin Sodium/Tazobactam 3.375 GM in 0.9 % Sodium Chloride 50 ML IV (18:46)
[2022-07-24] MEDS: HYDROmorphone HCl 0.5 MG/0.5 ML SYRINGE IVPUSH (18:59)
[2022-07-24 20:36] LABS: Alanine Aminotransferase 85 U/L (0-31); Albumin Level 2.8 g/dL (3.5-5.0); Alkaline Phosphatase 86 U/L (39-117); Anion Gap 16 (12-20); Aspartate Amino Transferase 26 U/L (5-31); Bilirubin Total 1.7 mg/dL (0.0-1.0); Blood Urea Nitrogen 61 mg/dL (9-16); Calcium 7.5 mg/dL (8.4-10.2); Carbon Dioxide 16 mmol/L (22-29); Chloride 112 mmol/L (96-108); Estimated Glomerular Filt Rate 11; Glucose Random 138 mg/dL (60-115); HCG Quantitative < 2 mIU/mL; Lipase 24 U/L (8-78); Potassium 3.9 mmol/L (3.3-5.1); Sodium 140 mmol/L (135-145); Total Protein 5.8 g/dL (6.5-8.0)
[2022-07-24 20:54] LABS: Appearance Urine Clear; Color Urine Yellow; Glucose Urine UA 500 mg/dL (Negative); Leukocyte Esterase Urine Negative (Negative); Nitrite Urine Negative (Negative); Specific Gravity - Urine 1.025 (1.005-1.025); UMIC TRIGGER UACC YES; Urine Blood Moderate (2+) (Negative); Urine Ketones Trace mg/dL (Negative); Urine Protein >=1000 (4+) mg/dL (Neg-Trace)
[2022-07-24 20:56] LABS: UPreg QC Valid YES; Urine Pregnancy NEGATIVE (NEGATIVE)
[2022-07-24 21:05] LABS: Amphetamine Screen Urine Not Detected (Not Detect); Barbiturates, Urine Not Detected (Not Detect); Benzodiazepines Screen Urine Not Detected (Not Detect); Cannabinoid Screen Urine Not Detected (Not Detect); Cocaine Screen Urine Not Detected (Not Detect); Fentanyl, urine Not Detected (Not Detect); Opiate Screen Urine Not Detected (Not Detect); Phencyclidine Screen Urine Not Detected (Not Detect)
[2022-07-24 21:07] LABS: Bacteria Urine 4+ (None Seen); Squamous Epithelial Cell Urine 0-2 /HPF (0-2); WBC Urine 0-5 /HPF (0-5)
--- NOTE | 2022-07-24 21:43 | PC.NURSE ---
Patient O2 sat 88% on RA while sleeping, O2 applied at 2 LPM NC with improvement in O2 Sat noted, patient saturating 94-95% on supplemental O2, RR 22.
[2022-07-24 22:16] LABS: C Reactive Protein 4.99 mg/dL (< or = 0.50)
--- NOTE | 2022-07-24 22:27 | PM.IMHP ---
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 Patient states that on the day of presentation, she started having fevers, chills, nausea, nonbloody emesis and chest and abdominal discomfort. Patient states she did not take her home p.o. medications due to nausea. No orthopnea, shortness of breath, cough, palpitations, changes in urinary or bowel habits. Denies IV drug use. Of note, Patient was recently admitted for hypertensive emergency and acute on chronic systolic heart failure but left AMA on 07/21. In the emergency department, SIRS+. CT abdomen/chest without any acute abnormality Review of Systems Constitutional: Constitutional: Reports chills, Reports fatigue, Reports fever(s), Reports lethargy and Reports malaise Cardiovascular: Cardiovascular: Reports chest pain Gastrointestinal: Gastrointestinal: Reports abdominal pain Genitourinary: Genitourinary: Reports no additional female genitourinary complaints Endocrine: Endocrine: Reports fatigue [facility] Medical History Abnormal finding on echocardiogram Acute dyspnea Acute worsening of stage 3 chronic kidney disease MYNOR (acute kidney injury) Anemia Anemia in chronic kidney disease (CKD) Asthma Back pain Blind right eye Bone infection Cellulitis Cellulitis and abscess of foot delivery delivered Chest pain CHF (congestive heart failure) (~06/07/22) CKD (chronic kidney disease) CKD (chronic kidney disease) Depression with anxiety Diabetes Diabetic retinopathy DM foot ulcer Elevated troponin Essential hypertension Fever Generalized edema HTN (hypertension) Hypertension (~06/10/22) Migraine Osteomyelitis PAD (peripheral artery disease) Pleural effusion test positive test positive Sepsis Severe anemia Tachycardia Type 2 diabetes mellitus with hyperglycemia, with long-term current use of insulin Family History Mother Coronary artery disease Myocardial infarction Stroke Diabetes mellitus Father Myocardial infarction Surgical History History of transmetatarsal amputation of foot S/P transmetatarsal amputation of foot Social History Household Members: Significant Other Household Members Other:: Sister, [id number], nephew Housing: Apartment Do you presently have visiting nurse or other home services: Yes (services) Alcohol intake: never Patient Tobacco Use Status: Tobacco use Unknown e-Cigarette/Vaping Use: Never Used Second Hand Smoke Exposure: No Advance Directives Date on File: 03/08/20 service: No Current occupational status: disabled Gender identity: Female Meds Allergies Allergy/AdvReac Type Severity Reaction Status Date / Time morphine [MORPHINE] Allergy Intermediate Itching Verified 07/06/22 16:17 azithromycin [From Zithromax] Allergy Hives Verified 07/06/22 16:17 gabapentin Allergy Facial Verified 07/06/22 16:17 Swelling tramadol Allergy Facial Verified 07/06/22 16:17 Swelling vancomycin Allergy Hives Verified 07/06/22 16:17 Active Medications: Current Medications Pharmacy Consult (Consult Rx Perform Med Rec) 1 each MISCELLANE ONCE PRN PRN Reason: Consult order Home Medications Medication Instructions Recorded Confirmed Last Taken Type acetaminophen 325 mg tablet 650 mg PO Q4H PRN Pain 04/01/22 07/20/22 Unknown History aspirin 81 mg tablet,delayed 1 tab PO DAILY 04/01/22 07/20/22 2 Days Ago History release ~04/20/22 pantoprazole 40 mg tablet,delayed 1 tab PO DAILY@0630 04/01/22 07/20/22 2 Days Ago History release ~04/20/22 oxycodone 5 mg tablet 5 mg PO Q6H PRN severe pain 06/07/22 07/20/22 Unknown History docusate sodium 100 mg capsule 100 mg PO DAILY PRN constipation 07/06/22 07/20/22 Unknown History ferrous fumarate 324 mg (106 mg 324 mg PO DAILY 07/06/22 07/20/22 Unknown History iron) tablet (Ferrocite) Physical Exam Vital Signs and Narrative: Vital Signs: Last Vital Signs Temp 98.5 F 07/24/22 22:00 Pulse 95 07/24/22 22:00 Resp 20 07/24/22 22:00 BP 186/105 H 07/24/22 22:00 Pulse Ox 99 07/24/22 22:00 O2 Del Method Room Air 07/24/22 22:00 BMI result Body Mass Index 31.5 Middle-aged female lying in bed in no distress Tachycardic with regular rhythm, S1-S2 heard No crackles or wheezing Abdomen soft nontender, no guarding, no rigidity Patient is awake, alert and oriented to self, place, time and person ; no focal motor deficit Psych: Normal mood Extremity: Bilateral transmetatarsal amputation, left foot with ulcer on the ventral aspect, noninfected, nondraining Results Labs 07/24/22 17:35 07/24/22 19:50 Labs: Laboratory Results - last 24 hr 07/24/22 07/24/22 07/24/22 17:35 17:35 17:35 MCV 85.4 MCH 26.9 L MCHC 31.4 RDW 19.7 H Plt Count 141 L MPV 12.9 H Immature Gran % (Auto) 0.5 H Neut % (Auto) 95.2 H Lymph % (Auto) 1.4 L Sanders % (Auto) 2.8 Eos % (Auto) 0.0 Baso % (Auto) 0.1 Lymph # (Auto) 0.2 L Sanders # (Auto) 0.4 Eos # (Auto) 0.0 Baso # (Auto) 0.0 Abs Immat Gran (auto) 0.07 H Absolute Neuts (auto) 14.5 H Absolute Nucleated RBC 0.000 Nucleated RBC % (auto) 0.0 PT 14.5 H INR 1.3 H APTT 32.4 Anion Gap Estim Creat Clear Calc Estimated GFR Random Glucose Lactic Acid 1.6 Calcium Magnesium Total Bilirubin AST ALT Alkaline Phosphatase C-Reactive Protein Total Protein Albumin Lipase Beta HCG, Quant Urine Color Urine Appearance Urine pH Ur Specific [place] Urine Protein Urine Glucose (UA) Urine Ketones Urine Blood Urine Nitrite Ur Leukocyte Esterase Urine RBC Urine WBC Ur Squamous Epith Cells Urine Bacteria Hyaline Casts Urine Test Urine Opiates Screen Urine Fentanyl Screen Ur Barbiturates Screen Ur Phencyclidine Scrn Ur Amphetamines Screen U Benzodiazepines Scrn Urine Cocaine Screen U Marijuana (THC) Screen COVID-19 (CARO) COVID-19 Clin Com Influenza Type A (MILTON) Influenza Type B (MILTON) Influenza A & B Note 07/24/22 07/24/22 07/24/22 17:37 17:38 19:50 MCV MCH MCHC RDW Plt Count MPV Immature Gran % (Auto) Neut % (Auto) Lymph % (Auto) Sanders % (Auto) Eos % (Auto) Baso % (Auto) Lymph # (Auto) Sanders # (Auto) Eos # (Auto) Baso # (Auto) Abs Immat Gran (auto) Absolute Neuts (auto) Absolute Nucleated RBC Nucleated RBC % (auto) PT INR APTT Anion Gap 16 Estim Creat Clear Calc 19.0 Estimated GFR 11 Random Glucose 138 H Lactic Acid Calcium 7.5 L D Magnesium 2.0 Total Bilirubin 1.7 H AST 26 ALT 85 H Alkaline Phosphatase 86 C-Reactive Protein 4.99 H Total Protein 5.8 L Albumin 2.8 L Lipase 24 Beta HCG, Quant < 2 Urine Color Urine Appearance Urine pH Ur Specific [place] Urine Protein Urine Glucose (UA) Urine Ketones Urine Blood Urine Nitrite Ur Leukocyte Esterase Urine RBC Urine WBC Ur Squamous Epith Cells Urine Bacteria Hyaline Casts Urine Test Urine Opiates Screen Urine Fentanyl Screen Ur Barbiturates Screen Ur Phencyclidine Scrn Ur Amphetamines Screen U Benzodiazepines Scrn Urine Cocaine Screen U Marijuana (THC) Screen COVID-19 (CARO) Negative COVID-19 Clin Com See Note Influenza Type A (MILTON) Negative Influenza Type B (MILTON) Negative Influenza A & B Note See Note 07/24/22 07/24/22 07/24/22 20:46 20:46 20:46 MCV MCH MCHC RDW Plt Count MPV Immature Gran % (Auto) Neut % (Auto) Lymph % (Auto) Sanders % (Auto) Eos % (Auto) Baso % (Auto) Lymph # (Auto) Sanders # (Auto) Eos # (Auto) Baso # (Auto) Abs Immat Gran (auto) Absolute Neuts (auto) Absolute Nucleated RBC Nucleated RBC % (auto) PT INR APTT Anion Gap Estim Creat Clear Calc Estimated GFR Random Glucose Lactic Acid Calcium Magnesium Total Bilirubin AST ALT Alkaline Phosphatase C-Reactive Protein Total Protein Albumin Lipase Beta HCG, Quant Urine Color Yellow Urine Appearance Clear Urine pH 6.0 Ur Specific [place] 1.025 Urine Protein >=1000 (4+) H Urine Glucose (UA) 500 H Urine Ketones Trace Urine Blood Moderate (2+) H Urine Nitrite Negative Ur Leukocyte Esterase Negative Urine RBC 3-5 H Urine WBC 0-5 Ur Squamous Epith Cells 0-2 Urine Bacteria 4+ Hyaline Casts 3-5 Urine Test NEGATIVE Urine Opiates Screen Not Detected Urine Fentanyl Screen Not Detected Ur Barbiturates Screen Not Detected Ur Phencyclidine Scrn Not Detected Ur Amphetamines Screen Not Detected U Benzodiazepines Scrn Not Detected Urine Cocaine Screen Not Detected U Marijuana (THC) Screen Not Detected COVID-19 (CARO) COVID-19 Clin Com Influenza Type A (MILTON) Influenza Type B (MILTON) Influenza A & B Note Imaging Radiologist's Impressions: Impressions Chest X-Ray 07/24/22 17:55 IMPRESSION: Stable compared with 07/19/2022. Minor elevation of the right diaphragm a persistent finding likely related to hepatomegaly. Abdomen/Pelvis CT 07/24/22 20:31 IMPRESSION: 1. Continued decrease in size of pleural effusions. 2. No acute intrathoracic disease. 3. Incidental note made of tiny pulmonary micronodules, trace pericardial effusion, cholecystectomy, hepatosplenomegaly and prominent inguinal and femoral lymph nodes. 4. A cause for the patient's abdominal pain and chest pain has not been found. Fleischner guidelines were followed. Chest CT 07/24/22 20:31 IMPRESSION: 1. Continued decrease in size of pleural effusions. 2. No acute intrathoracic disease. 3. Incidental note made of tiny pulmonary micronodules, trace pericardial effusion, cholecystectomy, hepatosplenomegaly and prominent inguinal and femoral lymph nodes. 4. A cause for the patient's abdominal pain and chest pain has not been found. Fleischner guidelines were followed. Foot X-Ray 07/24/22 21:37 IMPRESSION: Chronic and postsurgical/traumatic changes as detailed above with associated deformity, but no definitive acute abnormality. No overt evidence for osteomyelitis. Assessment and Plan (1) Fever: Status: Acute Plan This is a 31-year-old female with pertinent history of essential hypertension, congestive heart failure with reduced ejection fraction, 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 #. SIRS+, unclear source. Resuscitated with IV crystalloids in the ER. Blood cultures and lactic acid obtained. Given empiric IV antibiotics. Consulting Infectious Disease, appreciate assistance. MRSA nasal screen pending. #.? MYNOR on CKD stage 4:?in the setting of above. Monitor creatinine and urine output. Avoid nephrotoxins, Appreciate nephrology assistance. #.? Hypertensive urgency/emergency: Due to medication noncompliance.?Resume home antihypertensives.? Trend and optimize. #.? Chronic congestive heart failure with reduced ejection fraction:? Resume p.o. Lasix with resolution of sepsis.?Patient on beta-mohamud.? Strict I's and O's and low-salt diet. #.? Insulin-dependent diabetes mellitus:? Initiating Accu-Cheks with sliding scale insulin #.? Chronic normocytic anemia Med rec pending DVT prophylaxis:? Lovenox 30 mg daily Full code Low-salt diet Admit as inpatient and will require two night minimum hospital stay for IV antibiotics Time Spent With Patient Time: Total time managing care of this patient today ____ minutes. Quality Stroke Does the patient have a stroke diagnosis?: No VTE Prior VTE?: No VTE Risk Level:: Medical - moderate - high VTE Device Contraindication: Treatment Not Indicated VTE Drug Contraindication: N/A - Med Ordered
[2022-07-24] MEDS: Enoxaparin Sodium 30 MG/0.3 ML SYRINGE SUBCUT (23:01)
[2022-07-24] MEDS: cefEPime HCl 1 GM in 0.9 % Sodium Chloride 50 ML IV (23:01)
[2022-07-24] MEDS: oxyCODONE HCl Immed Release 5 MG TABLET PO (23:36)
[2022-07-24] MEDS: 0.9 % Sodium Chloride Flush 3 ML SYRINGE IVFLUSH (23:38)
--- NOTE | 2022-07-24 23:52 | PC.NURSE ---
Patient BP 188/105 and reports pain 12/05. Patient refused tylenol. 1914 trop draw at 144. made of aware of these concerns Administer oxycodone as per APR. Repeat Trop ordered
--- NOTE | 2022-07-25 00:25 | PC.NURSE ---
Repeat trop 133. Dr. Sewell made aware.
[2022-07-25] MEDS: Enoxaparin Sodium 60 MG/0.6 ML SYRINGE 50 MG SUBCUT (00:41)
--- NOTE | 2022-07-25 01:17 | PC.NURSE ---
Nurse to nurse report given to JONI Sandoval RN.
[2022-07-25 01:21] VITALS: BP 178/109; PULSE 90; RESP 18; O2SAT 97
[2022-07-25 02:12] VITALS: BP 174/110; PULSE 97; RESP 20; TEMP 37.2; O2SAT 98
[2022-07-25] MEDS: oxyCODONE HCl Immed Release 5 MG TABLET PO (05:37)
[2022-07-25 07:24] LABS: Glucose, Whole Blood 85 mg/dL (60-115)
[2022-07-25 07:34] VITALS: BP 169/96; PULSE 100; RESP 16; TEMP 36.5; O2SAT 96
--- NOTE | 2022-07-25 07:43 | PHA.MEDREC ---
Pharmacy Consult ? Medication Reconciliation Pharmacy has completed the medication reconciliation. Pt with numerous recent admissions and most recent med rec on 07/20. Pt told pharmacy at that time that she doesn't use insulin and doesn't know meds. We've used claim history in the past so it was used today to complete med rec.
[2022-07-25 08:52] LABS: MRSA Nasal PCR POSITIVE (Negative); SA Nasal PCR POSITIVE (Negative)
--- NOTE | 2022-07-25 09:07 | MHC.CM.PN ---
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
[2022-07-25] MEDS: 0.9 % Sodium Chloride Flush 3 ML SYRINGE IVFLUSH ×3 (09:36→20:50)
--- NOTE | 2022-07-25 11:03 | P.PNIM_ITS ---
Subjective Subjective Date of Service: 07/25/22 Interval History: Admitted last night due to fever up to 103, headache, this morning patient complaining of nausea, headache, chest pain and left leg pain that she forgot to inform the admitting provider, complaining of severe left leg pain of 1 day duration, denies any trauma or fall, patient is wheelchair-bound, no fevers this morning, denies shortness of breath, needs no urine symptoms, denies illicit drug use. Review of Systems All other system reviewed and negative Physical Exam Vital Signs: Vital Signs: Last Vital Signs Temp 97.7 F 07/25/22 07:34 Pulse 100 07/25/22 07:34 Resp 16 07/25/22 07:34 BP 169/96 H 07/25/22 07:34 Pulse Ox 96 07/25/22 07:34 O2 Del Method Nasal Cannula 07/25/22 07:34 O2 Flow Rate 2 07/25/22 07:34 BMI result Body Mass Index 31.5 Const: Other: Gen: in no acute distress Neck: supple Lungs: clear to auscultation bilaterally, diminished breath sound pain with deep breathing Heart: regular rate and rhythm, no murmurs Abd: soft, non-tender, non-distended Ext: no edema RLE, no pitting edema left lower extremity but swollen, tender and warm to touch Skin: warm/well-perfused Neuro: alert and oriented x3, no focal findings Psych: appropriate affect Objective Data Active Medications Acetaminophen (Acetaminophen 325 Mg Tablet) 650 mg PO Q6H PRN PRN Reason: Pain, Mild (Pain Scale 1-3) Acetaminophen (Acetaminophen Supp 650 Mg Supp.Rect) 650 mg MA Q6H PRN PRN Reason: Pain, Mild (Pain Scale 1-3) Enoxaparin Sodium (Enoxaparin Sodium 30 Mg/0.3 Ml Syringe) 30 mg SUBCUT Q24H [facility] Last Admin: 07/24/22 23:01 Dose: 30 mg Documented By: CARIDAD Glucose (Glucose Gel 15 Gm Gel..Gram.) 15 gm PO Q15M PRN; Protocol PRN Reason: per Hypoglycemia Standing Ord. Cefepime HCl 1 gm/ Sodium (Chloride) 50 mls @ 100 mls/hr IV Q12H [facility] Last Infusion: 07/25/22 00:00 Dose: 0 mls/hr Documented By: ESTIVEN Dextrose (D10) 250 mls @ 750 mls/hr IV Q15M PRN; Protocol PRN Reason: per Hypoglycemia Standing Ord. Insulin Human Lispro (Insulin Lispro 100 Unit/Ml 3 Ml Vial) 0 unit SUBCUT QIDAProsper [facility]; Protocol Last Admin: 07/25/22 07:40 Dose: Not Given Documented By: VIDAL Non-Admin Reason: No Insulin Coverage Melatonin (Melatonin 3 Mg Tablet) 6 mg PO BEDTIME PRN PRN Reason: Insomnia Ondansetron HCl (Ondansetron Hcl 4 Mg/2 Ml Vial) 4 mg IVPUSH Q8H PRN PRN Reason: Nausea and Vomiting Ondansetron HCl (Ondansetron Hcl 4 Mg/2 Ml Vial) 4 mg IVPUSH Q8H PRN PRN Reason: Nausea Oxycodone HCl (Oxycodone Hcl Immed Release 5 Mg Tablet) 5 mg PO Q6H PRN PRN Reason: Pain, Severe (Pain Scale 7-10) Last Admin: 07/25/22 05:37 Dose: 5 mg Documented By: MARIE Pharmacy Consult (Consult Rx Perform Med Rec) 1 each MISCELLANE ONCE PRN PRN Reason: Consult order Sodium Chloride (0.9 % Sodium Chloride Flush 3 Ml Syringe) 3 ml IVFREPLACED BY [facility] Last Admin: 07/25/22 09:36 Dose: 3 ml Documented By: VIDAL Labs 07/24/22 17:35 07/24/22 19:50 Labs: Laboratory Results - last 24 hr 07/24/22 07/24/22 07/24/22 17:35 17:35 17:35 MCV 85.4 MCH 26.9 L MCHC 31.4 RDW 19.7 H Plt Count 141 L MPV 12.9 H Immature Gran % (Auto) 0.5 H Neut % (Auto) 95.2 H Lymph % (Auto) 1.4 L Forest % (Auto) 2.8 Eos % (Auto) 0.0 Baso % (Auto) 0.1 Lymph # (Auto) 0.2 L Forest # (Auto) 0.4 Eos # (Auto) 0.0 Baso # (Auto) 0.0 Abs Immat Gran (auto) 0.07 H Absolute Neuts (auto) 14.5 H Absolute Nucleated RBC 0.000 Nucleated RBC % (auto) 0.0 PT 14.5 H INR 1.3 H APTT 32.4 Anion Gap Estim Creat Clear Calc Estimated GFR POC Glucose Random Glucose Lactic Acid 1.6 Calcium Magnesium Total Bilirubin AST ALT Alkaline Phosphatase Troponin I High Sens C-Reactive Protein Total Protein Albumin Lipase Beta HCG, Quant Urine Color Urine Appearance Urine pH Ur Specific [place] Urine Protein Urine Glucose (UA) Urine Ketones Urine Blood Urine Nitrite Ur Leukocyte Esterase Urine RBC Urine WBC Ur Squamous Epith Cells Urine Bacteria Hyaline Casts Urine Test Nasal Screen MRSA (PCR) Nasal S. aureus Screen Nasal MRSA/S.aureus Interp Urine Opiates Screen Urine Fentanyl Screen Ur Barbiturates Screen Ur Phencyclidine Scrn Ur Amphetamines Screen U Benzodiazepines Scrn Urine Cocaine Screen U Marijuana (THC) Screen COVID-19 (CARO) COVID-19 Clin Com Influenza Type A (MILTON) Influenza Type B (MILTON) Influenza A & B Note 07/24/22 07/24/22 07/24/22 17:37 17:38 19:50 MCV MCH MCHC RDW Plt Count MPV Immature Gran % (Auto) Neut % (Auto) Lymph % (Auto) Forest % (Auto) Eos % (Auto) Baso % (Auto) Lymph # (Auto) Forest # (Auto) Eos # (Auto) Baso # (Auto) Abs Immat Gran (auto) Absolute Neuts (auto) Absolute Nucleated RBC Nucleated RBC % (auto) PT INR APTT Anion Gap 16 Estim Creat Clear Calc 19.0 Estimated GFR 11 POC Glucose Random Glucose 138 H Lactic Acid Calcium 7.5 L D Magnesium 2.0 Total Bilirubin 1.7 H AST 26 ALT 85 H Alkaline Phosphatase 86 Troponin I High Sens C-Reactive Protein 4.99 H Total Protein 5.8 L Albumin 2.8 L Lipase 24 Beta HCG, Quant < 2 Urine Color Urine Appearance Urine pH Ur Specific [place] Urine Protein Urine Glucose (UA) Urine Ketones Urine Blood Urine Nitrite Ur Leukocyte Esterase Urine RBC Urine WBC Ur Squamous Epith Cells Urine Bacteria Hyaline Casts Urine Test Nasal Screen MRSA (PCR) Nasal S. aureus Screen Nasal MRSA/S.aureus Interp Urine Opiates Screen Urine Fentanyl Screen Ur Barbiturates Screen Ur Phencyclidine Scrn Ur Amphetamines Screen U Benzodiazepines Scrn Urine Cocaine Screen U Marijuana (THC) Screen COVID-19 (CARO) Negative COVID-19 Clin Com See Note Influenza Type A (MILTON) Negative Influenza Type B (MILTON) Negative Influenza A & B Note See Note 07/24/22 07/24/22 07/24/22 19:50 20:46 20:46 MCV MCH MCHC RDW Plt Count MPV Immature Gran % (Auto) Neut % (Auto) Lymph % (Auto) Forest % (Auto) Eos % (Auto) Baso % (Auto) Lymph # (Auto) Forest # (Auto) Eos # (Auto) Baso # (Auto) Abs Immat Gran (auto) Absolute Neuts (auto) Absolute Nucleated RBC Nucleated RBC % (auto) PT INR APTT Anion Gap Estim Creat Clear Calc Estimated GFR POC Glucose Random Glucose Lactic Acid Calcium Magnesium Total Bilirubin AST ALT Alkaline Phosphatase Troponin I High Sens 144.0 H* D C-Reactive Protein Total Protein Albumin Lipase Beta HCG, Quant Urine Color Yellow Urine Appearance Clear Urine pH 6.0 Ur Specific [place] 1.025 Urine Protein >=1000 (4+) H Urine Glucose (UA) 500 H Urine Ketones Trace Urine Blood Moderate (2+) H Urine Nitrite Negative Ur Leukocyte Esterase Negative Urine RBC 3-5 H Urine WBC 0-5 Ur Squamous Epith Cells 0-2 Urine Bacteria 4+ Hyaline Casts 3-5 Urine Test NEGATIVE Nasal Screen MRSA (PCR) Nasal S. aureus Screen Nasal MRSA/S.aureus Interp Urine Opiates Screen Urine Fentanyl Screen Ur Barbiturates Screen Ur Phencyclidine Scrn Ur Amphetamines Screen U Benzodiazepines Scrn Urine Cocaine Screen U Marijuana (THC) Screen COVID-19 (CARO) COVID-19 Clin Com Influenza Type A (MILTON) Influenza Type B (MILTON) Influenza A & B Note 07/24/22 07/24/22 07/24/22 20:46 23:17 23:40 MCV MCH MCHC RDW Plt Count MPV Immature Gran % (Auto) Neut % (Auto) Lymph % (Auto) Forest % (Auto) Eos % (Auto) Baso % (Auto) Lymph # (Auto) [place] # (Auto) Eos # (Auto) Baso # (Auto) Abs Immat Gran (auto) Absolute Neuts (auto) Absolute Nucleated RBC Nucleated RBC % (auto) PT INR APTT Anion Gap Estim Creat Clear Calc Estimated GFR POC Glucose Random Glucose Lactic Acid Calcium Magnesium Total Bilirubin AST ALT Alkaline Phosphatase Troponin I High Sens 133.0 H* C-Reactive Protein Total Protein Albumin Lipase Beta HCG, Quant Urine Color Urine Appearance Urine pH Ur Specific [place] Urine Protein Urine Glucose (UA) Urine Ketones Urine Blood Urine Nitrite Ur Leukocyte Esterase Urine RBC Urine WBC Ur Squamous Epith Cells Urine Bacteria Hyaline Casts Urine Test Nasal Screen MRSA (PCR) POSITIVE A Nasal S. aureus Screen POSITIVE A Nasal MRSA/S.aureus Interp SEE NOTE Urine Opiates Screen Not Detected Urine Fentanyl Screen Not Detected Ur Barbiturates Screen Not Detected Ur Phencyclidine Scrn Not Detected Ur Amphetamines Screen Not Detected U Benzodiazepines Scrn Not Detected Urine Cocaine Screen Not Detected U Marijuana (THC) Screen Not Detected COVID-19 (CARO) COVID-19 Clin Com Influenza Type A ([facility]TON) Influenza Type B (MILTON) Influenza A & B Note 07/25/22 07:13 MCV MCH MCHC RDW Plt Count MPV Immature Gran % (Auto) Neut % (Auto) Lymph % (Auto) [place] % (Auto) Eos % (Auto) Baso % (Auto) Lymph # (Auto) [place] # (Auto) Eos # (Auto) Baso # (Auto) Abs Immat Gran (auto) Absolute Neuts (auto) Absolute Nucleated RBC Nucleated RBC % (auto) PT INR APTT Anion Gap Estim Creat Clear Calc Estimated GFR POC Glucose 85 Random Glucose Lactic Acid Calcium Magnesium Total Bilirubin AST ALT Alkaline Phosphatase Troponin I High Sens C-Reactive Protein Total Protein Albumin Lipase Beta HCG, Quant Urine Color Urine Appearance Urine pH Ur Specific [place] Urine Protein Urine Glucose (UA) Urine Ketones Urine Blood Urine Nitrite Ur Leukocyte Esterase Urine RBC Urine WBC Ur Squamous Epith Cells Urine Bacteria Hyaline Casts Urine Test Nasal Screen MRSA (PCR) Nasal S. aureus Screen Nasal MRSA/S.aureus Interp Urine Opiates Screen Urine Fentanyl Screen Ur Barbiturates Screen Ur Phencyclidine Scrn Ur Amphetamines Screen U Benzodiazepines Scrn Urine Cocaine Screen U Marijuana (THC) Screen COVID-19 (CARO) COVID-19 Clin Com Influenza Type A ([facility]ILTON) Influenza Type B (MILTON) Influenza A & B Note Assessment and Plan (1) Pericarditis: Status: Acute (2) Fever: Status: Acute (3) Anemia: Status: Acute (4) Hypertensive emergency: Status: Acute Plan 31-year-old female with pertinent history of essential hypertension, congestive heart failure with reduced ejection fraction, 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 #.? Fever/leukocytosis/nausea chest pain SIRS+, left leg pain and swelling, no DVT on Doppler ultrasound Anterior chest pain with deep breathing, leukocytosis, elevated troponin likely Perimyocarditis UA positive for chronic 4+ bacteria no pyuria no nitrates, patient asymptomatic Differential diagnosis idiopathic pericarditis, cellulitis follow blood cultures Initiate prednisone for pericarditis, continue empiric antibiotics IV cefepime day 1 question left leg cellulitis and discuss with ID for unclear source of infection. Follow? Blood cultures Continue supportive care with antiemetics and analgesics #.? MYNOR on CKD stage 4:?in the setting of above.? Monitor creatinine and urine output, hold diuretics, Avoid nephrotoxins, Appreciate nephrology assistance. #.? Hypertensive urgency/emergency:? Continue Coreg and Isordil, hold nifedipine case discussed with Cardiology they recommend hydralazine 25 mg b.i.d. follow BP closely #.? Chronic congestive heart failure with reduced ejection fraction:? No evidence of CHF hold diuretics, continue Coreg follow clinical course #.? Insulin-dependent diabetes mellitus:? Diabetic diet, Accu-Cheks with sliding scale insulin, not on home medication #.? Chronic normocytic anemia # hypertensive emergency presented with systolic BP greater than 200 likely due to noncompliance will resume home medications and follow BP closely. DVT prophylaxis:? Lovenox 30 mg daily Full code Low-salt diet Patient required continued inpatient hospitalization for IV antibiotic and steroids for possible pericarditis and close renal follow-up due to worsening renal function Time Spent With Patient Time: Total time managing care of this patient today ____ minutes. Quality Stroke Does the patient have a stroke diagnosis?: No VTE Prior VTE?: No VTE Risk Level:: Medical - moderate - high VTE Device Contraindication: Treatment Not Indicated VTE Drug Contraindication: N/A - Med Ordered
[2022-07-25 11:08] LABS: Glucose, Whole Blood 76 mg/dL (60-115)
[2022-07-25] MEDS: cefEPime HCl 1 GM in 0.9 % Sodium Chloride 50 ML IV (11:11)
[2022-07-25 11:12] VITALS: BP 180/101; PULSE 106; RESP 16; TEMP 36.4; O2SAT 96
[2022-07-25] MEDS: ondansetron HCL 4 MG/2 ML VIAL IVPUSH (11:17)
--- NOTE | 2022-07-25 11:23 | PM.CNCAR ---
History of Present Illness History of Present Illness Date of Service: 07/25/22 Requesting physician: Scarlet Arora Consult reason: chest pain and other (Cardiomyopathy) Chief complaint: Fever Narrative: I was consulted to see the patient for chest pain with mildly elevated troponin which are flat. Patient also has prior history of heart failure with reduced ejection fraction with severe LV systolic dysfunction with noncompliance with heart failure medications. She also has diabetes with diabetic nephropathy, neuropathy as well as retinopathy. She is legally blind. She has advanced kidney disease. She has been admitted multiple times in the past. She came to the hospital with fever, cough and significant retrosternal chest discomfort. She is saying that her pain is unbearable. The pain is central nature worse with deep breathing described as tightness. She is also significant pain when she is laying on her back compared to sitting up. She also has diffuse body pain. She is admitted recently to the hospital. She currently is not on any cardiac medications as per the orders. There is been listed history of noncompliance with medications the past. She came in and was noted to have question lactic acidosis however lactic acid have been within normal limits which she received some IV fluids. Is no obvious source of infection. Her CRP is elevated. It troponin is minimally elevated and flat. She has no heart failure symptoms. Review of Systems Constitutional: Constitutional: Reports body ache(s), Reports chills, Reports fever(s) and Reports malaise Eyes: Eyes: Reports no additional eye complaints Cardiovascular: Cardiovascular: Reports chest pain, Denies rapid heart rate, Denies leg edema, Denies lightheadedness, Denies Loss of Consciousness, Denies palpitations, Denies dyspnea and Denies orthopnea Respiratory: Respiratory: Reports cough, Reports pain on inspiration and Denies dyspnea Gastrointestinal: Gastrointestinal: Denies no additional gastrointestinal complaints Integumentary/Breasts: Skin/Breast: Reports system reviewed and no additional complaints, except as docu Neurologic: Reports system reviewed and no additional complaints, except as documented Endocrine: Endocrine: Denies palpitations PMFSH Past Medical History Medical History Abnormal finding on echocardiogram Acute dyspnea Acute worsening of stage 3 chronic kidney disease MYNOR (acute kidney injury) Anemia Anemia in chronic kidney disease (CKD) Asthma Back pain Blind right eye Bone infection Cellulitis Cellulitis and abscess of foot delivery delivered Chest pain CHF (congestive heart failure) (~06/07/22) CKD (chronic kidney disease) CKD (chronic kidney disease) Depression with anxiety Diabetes Diabetic retinopathy DM foot ulcer Elevated troponin Essential hypertension Fever Generalized edema HTN (hypertension) Hypertension (~06/10/22) Migraine Osteomyelitis PAD (peripheral artery disease) Pleural effusion test positive test positive Sepsis Severe anemia Tachycardia Type 2 diabetes mellitus with hyperglycemia, with long-term current use of insulin Family History Family History Mother Coronary artery disease Myocardial infarction Stroke Diabetes mellitus Father Myocardial infarction Surgical History Surgical History History of transmetatarsal amputation of foot S/P transmetatarsal amputation of foot Social History Social History Household Members: Spouse Household Members Other:: Sister, [id number], nephew Housing: Apartment Do you presently have visiting nurse or other home services: Yes (services) Alcohol intake: never Patient Tobacco Use Status: Tobacco use Unknown e-Cigarette/Vaping Use: Never Used Second Hand Smoke Exposure: No Advance Directives Date on File: 03/08/20 service: No Current occupational status: unemployed and disabled Gender identity: Female Meds Allergies Allergy/AdvReac Type Severity Reaction Status Date / Time morphine [MORPHINE] Allergy Intermediate Itching Verified 07/06/22 16:17 azithromycin [From Zithromax] Allergy Hives Verified 07/06/22 16:17 gabapentin Allergy Facial Verified 07/06/22 16:17 Swelling tramadol Allergy Facial Verified 07/06/22 16:17 Swelling vancomycin Allergy Hives Verified 07/06/22 16:17 Active Medications: Current Medications Acetaminophen (Acetaminophen 325 Mg Tablet) 650 mg PO Q6H PRN PRN Reason: Pain, Mild (Pain Scale 1-3) Acetaminophen (Acetaminophen Supp 650 Mg Supp.Rect) 650 mg UT Q6H PRN PRN Reason: Pain, Mild (Pain Scale 1-3) Aspirin (Aspirin Enteric Coated 81 Mg Tablet.Dr) 81 mg PO DAILY [facility] Carvedilol (Carvedilol 12.5 Mg Tablet) 25 mg PO BID VASILE; Protocol Docusate Sodium (Docusate Sodium 100 Mg Capsule) 100 mg PO DAILY PRN PRN Reason: constipation Enoxaparin Sodium (Enoxaparin Sodium 30 Mg/0.3 Ml Syringe) 30 mg SUBCUT Q24H [facility] Last Admin: 07/24/22 23:01 Dose: 30 mg Glucose (Glucose Gel 15 Gm Gel..Gram.) 15 gm PO Q15M PRN; Protocol PRN Reason: per Hypoglycemia Standing Ord. Cefepime HCl 1 gm/ Sodium (Chloride) 50 mls @ 100 mls/hr IV Q12H [facility] Last Admin: 07/25/22 11:11 Dose: 100 mls/hr Dextrose (D10) 250 mls @ 750 mls/hr IV Q15M PRN; Protocol PRN Reason: per Hypoglycemia Standing Ord. Insulin Human Lispro (Insulin Lispro 100 Unit/Ml 3 Ml Vial) 0 unit SUBCUT QIDACHS [facility]; Protocol Last Admin: 07/25/22 11:11 Dose: Not Given Isosorbide Mononitrate (Isosorbide Mononitrate 30 Mg Tab.Er.24h) 30 mg PO DAILY [facility]; Protocol Melatonin (Melatonin 3 Mg Tablet) 6 mg PO BEDTIME PRN PRN Reason: Insomnia Omeprazole (Omeprazole 20 Mg Capsule.Dr) 20 mg PO DAILY@0630 [facility] Ondansetron HCl (Ondansetron Hcl 4 Mg/2 Ml Vial) 4 mg IVPUSH Q8H PRN PRN Reason: Nausea and Vomiting Last Admin: 07/25/22 11:17 Dose: 4 mg Ondansetron HCl (Ondansetron Hcl 4 Mg/2 Ml Vial) 4 mg IVPUSH Q8H PRN PRN Reason: Nausea Oxycodone HCl (Oxycodone Hcl Immed Release 5 Mg Tablet) 5 mg PO Q6H PRN PRN Reason: Pain, Severe (Pain Scale 7-10) Last Admin: 07/25/22 05:37 Dose: 5 mg Pharmacy Consult (Consult Rx Perform Med Rec) 1 each MISCELLANE ONCE PRN PRN Reason: Consult order Sodium Chloride (0.9 % Sodium Chloride Flush 3 Ml Syringe) 3 ml IVFLUSH QSHIFT [facility] Last Admin: 07/25/22 09:36 Dose: 3 ml Home Medications Medication Instructions Recorded Confirmed Last Taken Type acetaminophen 325 mg tablet 650 mg PO Q4H PRN Pain 04/01/22 07/25/22 Unknown History aspirin 81 mg tablet,delayed 1 tab PO DAILY 04/01/22 07/25/22 2 Days Ago History release ~04/20/22 pantoprazole 40 mg tablet,delayed 1 tab PO DAILY@0630 04/01/22 07/25/22 2 Days Ago History release ~04/20/22 docusate sodium 100 mg capsule 100 mg PO DAILY PRN constipation 07/06/22 07/25/22 Unknown History ferrous fumarate 324 mg (106 mg 324 mg PO DAILY 07/06/22 07/25/22 Unknown History iron) tablet (Ferrocite) Physical Exam Vital Signs: Vital Signs: Last Vital Signs Temp 97.6 F 07/25/22 11:12 Pulse 106 H 07/25/22 11:12 Resp 16 07/25/22 11:12 BP 180/101 H 07/25/22 11:12 Pulse Ox 96 07/25/22 11:12 O2 Del Method Nasal Cannula 07/25/22 11:12 O2 Flow Rate 2 07/25/22 11:12 BMI result Body Mass Index 31.5 Const: General: alert, awake and other (In pain) Nutritional Appearance: overweight Orientation/consciousness: patient oriented x3 HEENT: Head: Yes normocephalic and Yes atraumatic Neck: Neck: Yes trachea midline, Yes supple and Yes no JVD Resp: Effort & Inspection: decreased respiratory effort Auscultation: clear to auscultation bilaterally, no rales and no wheezes Cardio: Jugular venous distension: no JVD Rate: regular rate Rhythm: regular rhythm Heart sounds: S1 normal heart sound present, S2 normal heart sound present, no click, no gallops and no murmurs GI: Auscultation: normal bowel sounds Skin: General skin exam: no rashes or lesions noted Neuro: General: patient oriented x3 and no focal motor deficits Extrem: General: Yes no clubbing, cyanosis or edema Objective Labs and Meds 07/24/22 17:35 07/24/22 19:50 Lab results: Laboratory Results - last 24 hr 07/24/22 07/24/22 07/24/22 17:35 17:35 17:35 WBC 15.3 H RBC 3.50 L D Hgb 9.4 L D Hct 29.9 L D MCV 85.4 MCH 26.9 L MCHC 31.4 RDW 19.7 H Plt Count 141 L MPV 12.9 H Immature Gran % (Auto) 0.5 H Neut % (Auto) 95.2 H Lymph % (Auto) 1.4 L Garfield % (Auto) 2.8 Eos % (Auto) 0.0 Baso % (Auto) 0.1 Lymph # (Auto) 0.2 L [place]field # (Auto) 0.4 Eos # (Auto) 0.0 Baso # (Auto) 0.0 Abs Immat Gran (auto) 0.07 H Absolute Neuts (auto) 14.5 H Absolute Nucleated RBC 0.000 Nucleated RBC % (auto) 0.0 PT 14.5 H INR 1.3 H APTT 32.4 Sodium Potassium Chloride Carbon Dioxide Anion Gap BUN Creatinine Estim Creat Clear Calc Estimated GFR POC Glucose Random Glucose Lactic Acid 1.6 Calcium Magnesium Total Bilirubin AST ALT Alkaline Phosphatase Troponin I High Sens C-Reactive Protein Total Protein Albumin Lipase Beta HCG, Quant Urine Color Urine Appearance Urine pH Ur Specific [place] Urine Protein Urine Glucose (UA) Urine Ketones Urine Blood Urine Nitrite Ur Leukocyte Esterase Urine RBC Urine WBC Ur Squamous Epith Cells Urine Bacteria Hyaline Casts Urine Test Nasal Screen MRSA (PCR) Nasal S. aureus Screen Nasal MRSA/S.aureus Interp Urine Opiates Screen Urine Fentanyl Screen Ur Barbiturates Screen Ur Phencyclidine Scrn Ur Amphetamines Screen U Benzodiazepines Scrn Urine Cocaine Screen U Marijuana (THC) Screen COVID-19 ([facility]O) COVID-19 Clin Com Influenza Type A ([facility]) Influenza Type B ([facility]) Influenza A & B Note 07/24/22 07/24/22 07/24/22 17:37 17:38 19:50 WBC RBC Hgb Hct MCV MCH MCHC RDW Plt Count MPV Immature Gran % (Auto) Neut % (Auto) Lymph % (Auto) [place]field % (Auto) Eos % (Auto) Baso % (Auto) Lymph # (Auto) [place] # (Auto) Eos # (Auto) Baso # (Auto) Abs Immat Gran (auto) Absolute Neuts (auto) Absolute Nucleated RBC Nucleated RBC % (auto) PT INR APTT Sodium 140 Potassium 3.9 Chloride 112 H Carbon Dioxide 16 L Anion Gap 16 BUN 61 H Creatinine 4.54 H* Estim Creat Clear Calc 19.0 Estimated GFR 11 POC Glucose Random Glucose 138 H Lactic Acid Calcium 7.5 L D Magnesium 2.0 Total Bilirubin 1.7 H AST 26 ALT 85 H Alkaline Phosphatase 86 Troponin I High Sens C-Reactive Protein 4.99 H Total Protein 5.8 L Albumin 2.8 L Lipase 24 Beta HCG, Quant < 2 Urine Color Urine Appearance Urine pH Ur Specific [place] Urine Protein Urine Glucose (UA) Urine Ketones Urine Blood Urine Nitrite Ur Leukocyte Esterase Urine RBC Urine WBC Ur Squamous Epith Cells Urine Bacteria Hyaline Casts Urine Test Nasal Screen MRSA (PCR) Nasal S. aureus Screen Nasal MRSA/S.aureus Interp Urine Opiates Screen Urine Fentanyl Screen Ur Barbiturates Screen Ur Phencyclidine Scrn Ur Amphetamines Screen U Benzodiazepines Scrn Urine Cocaine Screen U Marijuana (THC) Screen COVID-19 ([facility]O) Negative COVID-19 Clin Com See Note Influenza Type A ([facility]) Negative Influenza Type B ([facility]) Negative Influenza A & B Note See Note 07/24/22 07/24/22 07/24/22 19:50 20:46 20:46 WBC RBC Hgb Hct MCV MCH MCHC RDW Plt Count MPV Immature Gran % (Auto) Neut % (Auto) Lymph % (Auto) [place] % (Auto) Eos % (Auto) Baso % (Auto) Lymph # (Auto) [place]field # (Auto) Eos # (Auto) Baso # (Auto) Abs Immat Gran (auto) Absolute Neuts (auto) Absolute Nucleated RBC Nucleated RBC % (auto) PT INR APTT Sodium Potassium Chloride Carbon Dioxide Anion Gap BUN Creatinine Estim Creat Clear Calc Estimated GFR POC Glucose Random Glucose Lactic Acid Calcium Magnesium Total Bilirubin AST ALT Alkaline Phosphatase Troponin I High Sens 144.0 H* D C-Reactive Protein Total Protein Albumin Lipase Beta HCG, Quant Urine Color Yellow Urine Appearance Clear Urine pH 6.0 Ur Specific [place] 1.025 Urine Protein >=1000 (4+) H Urine Glucose (UA) 500 H Urine Ketones Trace Urine Blood Moderate (2+) H Urine Nitrite Negative Ur Leukocyte Esterase Negative Urine RBC 3-5 H Urine WBC 0-5 Ur Squamous Epith Cells 0-2 Urine Bacteria 4+ Hyaline Casts 3-5 Urine Test NEGATIVE Nasal Screen MRSA (PCR) Nasal S. aureus Screen Nasal MRSA/S.aureus Interp Urine Opiates Screen Urine Fentanyl Screen Ur Barbiturates Screen Ur Phencyclidine Scrn Ur Amphetamines Screen U Benzodiazepines Scrn Urine Cocaine Screen U Marijuana (THC) Screen COVID-19 ([facility]) COVID-19 Clin Com Influenza Type A ([facility]) Influenza Type B ([facility]) Influenza A & B Note 07/24/22 07/24/22 07/24/22 20:46 23:17 23:40 WBC RBC Hgb Hct MCV MCH MCHC RDW Plt Count MPV Immature Gran % (Auto) Neut % (Auto) Lymph % (Auto) [place]field % (Auto) Eos % (Auto) Baso % (Auto) Lymph # (Auto) [place] # (Auto) Eos # (Auto) Baso # (Auto) Abs Immat Gran (auto) Absolute Neuts (auto) Absolute Nucleated RBC Nucleated RBC % (auto) PT INR APTT Sodium Potassium Chloride Carbon Dioxide Anion Gap BUN Creatinine Estim Creat Clear Calc Estimated GFR POC Glucose Random Glucose Lactic Acid Calcium Magnesium Total Bilirubin AST ALT Alkaline Phosphatase Troponin I High Sens 133.0 H* C-Reactive Protein Total Protein Albumin Lipase Beta HCG, Quant Urine Color Urine Appearance Urine pH Ur Specific [place] Urine Protein Urine Glucose (UA) Urine Ketones Urine Blood Urine Nitrite Ur Leukocyte Esterase Urine RBC Urine WBC Ur Squamous Epith Cells Urine Bacteria Hyaline Casts Urine Test Nasal Screen MRSA (PCR) POSITIVE A Nasal S. aureus Screen POSITIVE A Nasal MRSA/S.aureus Interp SEE NOTE Urine Opiates Screen Not Detected Urine Fentanyl Screen Not Detected Ur Barbiturates Screen Not Detected Ur Phencyclidine Scrn Not Detected Ur Amphetamines Screen Not Detected U Benzodiazepines Scrn Not Detected Urine Cocaine Screen Not Detected U Marijuana (THC) Screen Not Detected COVID-19 ([facility]) COVID-19 Clin Com Influenza Type A ([facility]) Influenza Type B ([facility]) Influenza A & B Note 07/25/22 07/25/22 07:13 11:04 WBC RBC Hgb Hct MCV MCH MCHC RDW Plt Count MPV Immature Gran % (Auto) Neut % (Auto) Lymph % (Auto) [place]field % (Auto) Eos % (Auto) Baso % (Auto) Lymph # (Auto) [place] # (Auto) Eos # (Auto) Baso # (Auto) Abs Immat Gran (auto) Absolute Neuts (auto) Absolute Nucleated RBC Nucleated RBC % (auto) PT INR APTT Sodium Potassium Chloride Carbon Dioxide Anion Gap BUN Creatinine Estim Creat Clear Calc Estimated GFR POC Glucose 85 76 Random Glucose Lactic Acid Calcium Magnesium Total Bilirubin AST ALT Alkaline Phosphatase Troponin I High Sens C-Reactive Protein Total Protein Albumin Lipase Beta HCG, Quant Urine Color Urine Appearance Urine pH Ur Specific [place] Urine Protein Urine Glucose (UA) Urine Ketones Urine Blood Urine Nitrite Ur Leukocyte Esterase Urine RBC Urine WBC Ur Squamous Epith Cells Urine Bacteria Hyaline Casts Urine Test Nasal Screen MRSA (PCR) Nasal S. aureus Screen Nasal MRSA/S.aureus Interp Urine Opiates Screen Urine Fentanyl Screen Ur Barbiturates Screen Ur Phencyclidine Scrn Ur Amphetamines Screen U Benzodiazepines Scrn Urine Cocaine Screen U Marijuana (THC) Screen COVID-19 ([facility]) COVID-19 Clin Com Influenza Type A ([facility]) Influenza Type B ([facility]) Influenza A & B Note Imaging Radiologist's impression: Impressions Chest X-Ray 07/24/22 17:55 IMPRESSION: Stable compared with 07/19/2022. Minor elevation of the right diaphragm a persistent finding likely related to hepatomegaly. Abdomen/Pelvis CT 07/24/22 20:31 IMPRESSION: 1. Continued decrease in size of pleural effusions. 2. No acute intrathoracic disease. 3. Incidental note made of tiny pulmonary micronodules, trace pericardial effusion, cholecystectomy, hepatosplenomegaly and prominent inguinal and femoral lymph nodes. 4. A cause for the patient's abdominal pain and chest pain has not been found. Fleischner guidelines were followed. Chest CT 07/24/22 20:31 IMPRESSION: 1. Continued decrease in size of pleural effusions. 2. No acute intrathoracic disease. 3. Incidental note made of tiny pulmonary micronodules, trace pericardial effusion, cholecystectomy, hepatosplenomegaly and prominent inguinal and femoral lymph nodes. 4. A cause for the patient's abdominal pain and chest pain has not been found. Fleischner guidelines were followed. Foot X-Ray 07/24/22 21:37 IMPRESSION: Chronic and postsurgical/traumatic changes as detailed above with associated deformity, but no definitive acute abnormality. No overt evidence for osteomyelitis. Assessment and Plan (1) HFrEF (heart failure with reduced ejection fraction): Status: Acute Patient with prior history of heart failure with reduced ejection fraction with severe LV systolic dysfunction with noncompliance to medications. She has significant elevated blood pressure most likely due to not taking medications. Currently can resume carvedilol therapy. Does not appear to be in overt heart failure at this point time. Will also start on hydralazine as well as Isordil combination for vasodilators therapy. Overall prognosis is guarded. Can hold off on diuretic therapy. Closely watch for development of heart failure syndrome. (2) Pericarditis: Status: Acute Patient with pleuritic chest pain type syndrome associated with fever and leukocytosis with elevated CRP and minimal elevated troponin which are flat with no other obvious source of infection with possible recent viral syndrome and also advancing kidney dysfunction as possible causes for her pericarditis. No significant treatment options except for steroid therapy. This should be tried. Will sign of the case at this point time. Thank you for allowing me to partake in Time Spent With Patient Time: Total time managing care of this patient today ____ minutes. Procedures Date of Service Date of Service: 07/25/22
[2022-07-25] MEDS: HYDROmorphone HCl 0.5 MG/0.5 ML SYRINGE 0.25 MG IVPUSH ×2 (14:32→19:16)
[2022-07-25] MEDS: Famotidine/PF 20 MG/2 ML VIAL IVPUSH (17:04)
--- NOTE | 2022-07-25 17:53 | PC.NURSE ---
I gave the zofran at 11:20, pt continues nauseated and vomit x1. Continues to complain of malaise and pain 10/10 to her head and leg. Refusing all po meds including pain medication. during the afternoon refuse the labs, vitals, POC despite education given. Hospitalist aware .
--- NOTE | 2022-07-25 18:46 | PM.CNNEP ---
History of Present Illness Reason for Consult Consult date: 07/25/22 Chief Complaint Chief complaint: Fever History of Present Illness Narrative: 31-year-old female with advanced CKD, congestive heart failure with reduced ejection fraction, insulin-dependent type 2 diabetes mellitus with diabetic retinopathy, , PAD status post transmetatarsal amputation of foot, who presented to the emergency department for evaluation of fever and generalized body discomfort.? Patient states that on the day of presentation, she started having fevers, chills, nausea, nonbloody emesis and chest and abdominal discomfort.? Patient states she did not take her home p.o. medications due to nausea.? No orthopnea, shortness of breath, cough, palpitations, changes in urinary or bowel habits.? Denies IV drug use.? Patient was recently admitted for hypertensive emergency and acute on chronic systolic heart failure but left AMA on 07/21. In the emergency department, SIRS+.? CT abdomen/chest without any acute abnormality. Her serum creatinine has gone up from baseline. Nephrology has been consulted to assist in her clinical care during her current hospital stay. Review of Systems Review of Systems Yes all other systems are reviewed and are negative PMFSH Past Medical History Medical History (Updated 07/25/22 @ 18:52 by Manjit Bautista MD) Abnormal finding on echocardiogram Acute dyspnea Acute worsening of stage 3 chronic kidney disease MYNOR (acute kidney injury) Anemia Anemia in chronic kidney disease (CKD) Asthma Back pain Blind right eye Bone infection Cellulitis Cellulitis and abscess of foot delivery delivered Chest pain CHF (congestive heart failure) (~06/07/22) CKD (chronic kidney disease) CKD (chronic kidney disease) Depression with anxiety Diabetes Diabetic retinopathy DM foot ulcer Elevated troponin Essential hypertension Fever Generalized edema HTN (hypertension) Hypertension (~06/10/22) Migraine Osteomyelitis PAD (peripheral artery disease) Pleural effusion test positive test positive Sepsis Severe anemia Tachycardia Type 2 diabetes mellitus with hyperglycemia, with long-term current use of insulin Family History Family History Mother Coronary artery disease Myocardial infarction Stroke Diabetes mellitus Father Myocardial infarction Surgical History Surgical History History of transmetatarsal amputation of foot S/P transmetatarsal amputation of foot Social History Social History Household Members: Spouse Household Members Other:: Sister, [id number], nephew Housing: Apartment Do you presently have visiting nurse or other home services: Yes (services) Alcohol intake: never Patient Tobacco Use Status: Tobacco use Unknown e-Cigarette/Vaping Use: Never Used Second Hand Smoke Exposure: No Advance Directives Date on File: 03/08/20 service: No Current occupational status: unemployed and disabled Gender identity: Female Meds Allergies Allergy/AdvReac Type Severity Reaction Status Date / Time morphine [MORPHINE] Allergy Intermediate Itching Verified 07/06/22 16:17 azithromycin [From Zithromax] Allergy Hives Verified 07/06/22 16:17 gabapentin Allergy Facial Verified 07/06/22 16:17 Swelling tramadol Allergy Facial Verified 07/06/22 16:17 Swelling vancomycin Allergy Hives Verified 07/06/22 16:17 Active Medications: Current Medications Acetaminophen (Acetaminophen 325 Mg Tablet) 650 mg PO Q6H PRN PRN Reason: Pain, Mild (Pain Scale 1-3) Acetaminophen (Acetaminophen Supp 650 Mg Supp.Rect) 650 mg LA Q6H PRN PRN Reason: Pain, Mild (Pain Scale 1-3) Aspirin (Aspirin Enteric Coated 81 Mg Tablet.Dr) 81 mg PO DAILY [facility] Carvedilol (Carvedilol 12.5 Mg Tablet) 25 mg PO BID [facility]; Protocol Docusate Sodium (Docusate Sodium 100 Mg Capsule) 100 mg PO DAILY PRN PRN Reason: constipation Enoxaparin Sodium (Enoxaparin Sodium 30 Mg/0.3 Ml Syringe) 30 mg SUBCUT Q24H [facility] Last Admin: 07/24/22 23:01 Dose: 30 mg Glucose (Glucose Gel 15 Gm Gel..Gram.) 15 gm PO Q15M PRN; Protocol PRN Reason: per Hypoglycemia Standing Ord. Hydralazine HCl (Hydralazine Hcl 25 Mg Tablet) 25 mg PO BID [facility]; Protocol Hydromorphone HCl (Hydromorphone Hcl 0.5 Mg/0.5 Ml Syringe) 0.25 mg IVPUSH Q4H PRN; Protocol PRN Reason: Pain, Severe (Pain Scale 7-10) Last Admin: 07/25/22 14:32 Dose: 0.25 mg Dextrose (D10) 250 mls @ 750 mls/hr IV Q15M PRN; Protocol PRN Reason: per Hypoglycemia Standing Ord. Insulin Human Lispro (Insulin Lispro 100 Unit/Ml 3 Ml Vial) 0 unit SUBCUT QIDACHS [facility]; Protocol Last Admin: 07/25/22 16:45 Dose: Not Given Isosorbide Mononitrate (Isosorbide Mononitrate 30 Mg Tab.Er.24h) 30 mg PO DAILY [facility]; Protocol Melatonin (Melatonin 3 Mg Tablet) 6 mg PO BEDTIME PRN PRN Reason: Insomnia Omeprazole (Omeprazole 20 Mg Capsule.Dr) 20 mg PO DAILY@629 [facility] Last Admin: 07/25/22 13:22 Dose: Not Given Ondansetron HCl (Ondansetron Hcl 4 Mg/2 Ml Vial) 4 mg IVPUSH Q8H PRN PRN Reason: Nausea and Vomiting Last Admin: 07/25/22 11:17 Dose: 4 mg Ondansetron HCl (Ondansetron Hcl 4 Mg/2 Ml Vial) 4 mg IVPUSH Q8H PRN PRN Reason: Nausea Oxycodone HCl (Oxycodone Hcl Immed Release 5 Mg Tablet) 5 mg PO Q6H PRN PRN Reason: Pain, Severe (Pain Scale 7-10) Last Admin: 07/25/22 05:37 Dose: 5 mg Pharmacy Consult (Consult Rx Perform Med Rec) 1 each MISCELLANE ONCE PRN PRN Reason: Consult order Prednisone (Prednisone 20 Mg Tablet) 40 mg PO DAILY [facility] Last Admin: 07/25/22 13:22 Dose: Not Given Sodium Chloride (0.9 % Sodium Chloride Flush 3 Ml Syringe) [facility] Last Admin: 07/25/22 17:04 Dose: 3 ml Home Medications Medication Instructions Recorded Confirmed Last Taken Type acetaminophen 325 mg tablet 650 mg PO Q4H PRN Pain 04/01/22 07/25/22 Unknown History aspirin 81 mg tablet,delayed 1 tab PO DAILY 04/01/22 07/25/22 2 Days Ago History release ~04/20/22 pantoprazole 40 mg tablet,delayed 1 tab PO DAILY@0630 04/01/22 07/25/22 2 Days Ago History release ~04/20/22 docusate sodium 100 mg capsule 100 mg PO DAILY PRN constipation 07/06/22 07/25/22 Unknown History ferrous fumarate 324 mg (106 mg 324 mg PO DAILY 07/06/22 07/25/22 Unknown History iron) tablet (Ferrocite) Physical Exam Vital Signs: Last Vital Signs Temp 97.6 F 07/25/22 11:12 Pulse 106 H 07/25/22 11:12 Resp 16 07/25/22 11:12 BP 180/101 H 07/25/22 11:12 Pulse Ox 96 07/25/22 11:12 O2 Del Method Nasal Cannula 07/25/22 11:12 O2 Flow Rate 2 07/25/22 11:12 BMI result Body Mass Index 31.5 Const Orientation/consciousness: patient oriented x3 Eyes EOM: EOMs intact bilaterally Neck Neck: Yes supple Resp Auscultation: diminished lung sounds Cardio Rate: regular rate GI Palpation (GI): Soft to palpation Neuro General: patient oriented x3 and moves all extremities Results Lab Results 07/24/22 17:35 07/24/22 19:50 Lab results: Chemistry 07/24/22 19:50 Sodium 140 Potassium 3.9 Carbon Dioxide 16 L BUN 61 H Creatinine 4.54 H* Calcium 7.5 L D Hematology 07/24/22 17:35 WBC 15.3 H Hgb 9.4 L D Plt Count 141 L Urinalysis 07/24/22 20:46 Urine Color Yellow Urine Appearance Clear Urine pH 6.0 Ur Specific [place] 1.025 Urine Protein >=1000 (4+) H Urine Glucose (UA) 500 H Urine Ketones Trace Urine Blood Moderate (2+) H Urine Nitrite Negative Ur Leukocyte Esterase Negative Urine RBC 3-5 H Urine WBC 0-5 Ur Squamous Epith Cells 0-2 Hyaline Casts 3-5 Assessment and Plan (1) MYNOR (acute kidney injury): Status: Acute Plan MYNOR likely due to tubular injury Has CKD 4 at baseline Has metabolic acidosis NaHCO3 650 mg PO bid BP needs to be better controlled No NSAID's/ACEI/ARB Has anemia of Chronic Disease No indication for renal replacement Shall closely follow up Time Spent With Patient Time: Total time managing care of this patient today ____ minutes. Procedures Date of Service Date of Service: 07/25/22
[2022-07-25 21:37] VITALS: BP 198/120; PULSE 99; RESP 16; TEMP 37.2; O2SAT 100
[2022-07-25 21:39] LABS: Glucose, Whole Blood 81 mg/dL (60-115)
[2022-07-25] MEDS: Labetalol HCL 100 MG/20 ML VIAL 10 MG IVPUSH (21:51)
--- NOTE | 2022-07-25 23:08 | P.CNID_ITS ---
History of Present Illness Data of Consult Service Date: 07/25/22 Requesting physician: Tawny Taylor Primary Care Provider: Abdon Beard MD HPI Reason for consult: possible infection She comes to hospital with nausea and vomiting and weakness. She has temperature to 103. She has achiness but no specific complaint. Review of Systems Review of Systems: Yes all other systems are reviewed and are negative PMFSH Past Medical History Medical History Abnormal finding on echocardiogram Acute dyspnea Acute worsening of stage 3 chronic kidney disease MYNOR (acute kidney injury) Anemia Anemia in chronic kidney disease (CKD) Asthma Back pain Blind right eye Bone infection Cellulitis Cellulitis and abscess of foot delivery delivered Chest pain CHF (congestive heart failure) (~06/07/22) CKD (chronic kidney disease) CKD (chronic kidney disease) Depression with anxiety Diabetes Diabetic retinopathy DM foot ulcer Elevated troponin Essential hypertension Fever Generalized edema HTN (hypertension) Hypertension (~06/10/22) Migraine Osteomyelitis PAD (peripheral artery disease) Pleural effusion test positive test positive Sepsis Severe anemia Tachycardia Type 2 diabetes mellitus with hyperglycemia, with long-term current use of ins ulin Family History Family History Mother Coronary artery disease Myocardial infarction Stroke Diabetes mellitus Father Myocardial infarction Surgical History Surgical History History of transmetatarsal amputation of foot S/P transmetatarsal amputation of foot Social History Social History Household Members: Spouse Household Members Other:: Sister, [id number], nephew Housing: Apartment Do you presently have visiting nurse or other home services: Yes (services) Alcohol intake: never Patient Tobacco Use Status: Tobacco use Unknown e-Cigarette/Vaping Use: Never Used Second Hand Smoke Exposure: No Advance Directives Date on File: 03/08/20 service: No Current occupational status: unemployed and disabled Gender identity: Female Meds Allergies Allergy/AdvReac Type Severity Reaction Status Date / Time morphine [MORPHINE] Allergy Intermediate Itching Verified 07/06/22 16:17 azithromycin [From Zithromax] Allergy Hives Verified 07/06/22 16:17 gabapentin Allergy Facial Verified 07/06/22 16:17 Swelling tramadol Allergy Facial Verified 07/06/22 16:17 Swelling vancomycin Allergy Hives Verified 07/06/22 16:17 Active Medications: Current Medications Acetaminophen (Acetaminophen 325 Mg Tablet) 650 mg PO Q6H PRN PRN Reason: Pain, Mild (Pain Scale 1-3) Acetaminophen (Acetaminophen Supp 650 Mg Supp.Rect) 650 mg DC Q6H PRN PRN Reason: Pain, Mild (Pain Scale 1-3) Aspirin (Aspirin Enteric Coated 81 Mg Tablet.Dr) 81 mg PO DAILY [facility] Carvedilol (Carvedilol 12.5 Mg Tablet) 25 mg PO BID [facility]; Protocol Last Admin: 07/25/22 21:52 Dose: Not Given Docusate Sodium (Docusate Sodium 100 Mg Capsule) 100 mg PO DAILY PRN PRN Reason: constipation Enoxaparin Sodium (Enoxaparin Sodium 30 Mg/0.3 Ml Syringe) 30 mg SUBCUT Q24H [facility] Last Admin: 07/25/22 21:59 Dose: Not Given Glucose (Glucose Gel 15 Gm Gel..Gram.) 15 gm PO Q15M PRN; Protocol PRN Reason: per Hypoglycemia Standing Ord. Hydralazine HCl (Hydralazine Hcl 25 Mg Tablet) 25 mg PO BID [facility]; Protocol Last Admin: 07/25/22 21:51 Dose: Not Given Hydromorphone HCl (Hydromorphone Hcl 0.5 Mg/0.5 Ml Syringe) 0.25 mg IVPUSH Q4H PRN; Protocol PRN Reason: Pain, Severe (Pain Scale 7-10) Last Admin: 07/25/22 19:16 Dose: 0.25 mg Dextrose (D10) 250 mls @ 750 mls/hr IV Q15M PRN; Protocol PRN Reason: per Hypoglycemia Standing Ord. Promethazine HCl 12.5 mg/ (Sodium Chloride) 50.5 mls @ 202 mls/hr IV Q6H PRN PRN Reason: Nausea and Vomiting Last Infusion: 07/25/22 21:10 Dose: Infused Insulin Human Lispro (Insulin Lispro 100 Unit/Ml 3 Ml Vial) 0 unit SUBCUT QIDACHS [facility]; Protocol Last Admin: 07/25/22 21:51 Dose: Not Given Isosorbide Mononitrate (Isosorbide Mononitrate 30 Mg Tab.Er.24h) 30 mg PO DAILY [facility]; Protocol Melatonin (Melatonin 3 Mg Tablet) 6 mg PO BEDTIME PRN PRN Reason: Insomnia Omeprazole (Omeprazole 20 Mg Capsule.Dr) 20 mg PO DAILY@629 [facility] Last Admin: 07/25/22 13:22 Dose: Not Given Ondansetron HCl (Ondansetron Hcl 4 Mg/2 Ml Vial) 4 mg IVPUSH Q8H PRN PRN Reason: Nausea and Vomiting Last Admin: 07/25/22 11:17 Dose: 4 mg Ondansetron HCl (Ondansetron Hcl 4 Mg/2 Ml Vial) 4 mg IVPUSH Q8H PRN PRN Reason: Nausea Oxycodone HCl (Oxycodone Hcl Immed Release 5 Mg Tablet) 5 mg PO Q6H PRN PRN Reason: Pain, Severe (Pain Scale 7-10) Last Admin: 07/25/22 05:37 Dose: 5 mg Pharmacy Consult (Consult Rx Perform Med Rec) 1 each MISCELLANE ONCE PRN PRN Reason: Consult order Prednisone (Prednisone 20 Mg Tablet) 40 mg PO DAILY [facility] Last Admin: 07/25/22 13:22 Dose: Not Given Sodium Chloride (0.9 % Sodium Chloride Flush 3 Ml Syringe) [facility] Last Admin: 07/25/22 20:50 Dose: 3 ml Home Medications Medication Instructions Recorded Confirmed Last Taken Type acetaminophen 325 mg tablet 650 mg PO Q4H PRN Pain 04/01/22 07/25/22 Unknown History aspirin 81 mg tablet,delayed 1 tab PO DAILY 04/01/22 07/25/22 2 Days Ago History release ~04/20/22 pantoprazole 40 mg tablet,delayed 1 tab PO DAILY@0630 04/01/22 07/25/22 2 Days Ago History release ~04/20/22 docusate sodium 100 mg capsule 100 mg PO DAILY PRN constipation 07/06/22 07/25/22 Unknown History ferrous fumarate 324 mg (106 mg 324 mg PO DAILY 07/06/22 07/25/22 Unknown History iron) tablet (Ferrocite) Physical Exam Vital Signs: Vital Signs: Last Vital Signs Temp 99.0 F 07/25/22 21:37 Pulse 99 07/25/22 21:37 Resp 16 07/25/22 21:37 BP 198/120 H 07/25/22 21:37 Pulse Ox 100 07/25/22 21:37 O2 Del Method Nasal Cannula 07/25/22 21:37 O2 Flow Rate 2 07/25/22 21:37 BMI result Body Mass Index 31.5 Const: General: cooperative HEENT: Head: Yes normal to inspection Face and sinus: Yes normal facial exam Mouth: Normal oral and palatal mucosa present Teeth and gingiva: dentition normal Eyes: General: appearance normal, both eyes and all related structures Pupils: Equal, round and reactive pupils present Resp: Effort & Inspection: normal respiratory effort Cardio: Rate: regular rate Rhythm: regular rhythm GI: Palpation (GI): Soft to palpation and nontender : General: Yes no CVA tenderness Back/Spine/Pelvis: Back: no CVA tenderness Skin: General skin exam: no rashes or lesions noted Neuro: General: moves all extremities Cranial nerves: Yes Equal, round and reactive pupils present Extrem: General: Yes normal to inspection Psych: Appearance: grossly normal Results Labs 07/24/22 17:35 07/24/22 19:50 Microbiology Microbiology Results: Microbiology 07/24/22 17:35 Blood - Venous Blood Culture - Preliminary No growth after 24 hours. 07/24/22 17:35 Blood - Venous Blood Culture - Preliminary No growth after 24 hours. Assessment and Plan (1) Fever: Status: Acute She possibly has viral syndrome such as gastroenteritis. LFTs are improving. Less likely is tickborne illness. Hepatitis panel and HIV are possible. Plan No antibiotics at this time Hepatitis panel and HIV. Time Spent With Patient Time: Total time managing care of this patient today ____ minutes.
[2022-07-25 23:11] VITALS: BP 183/104; PULSE 88; RESP 18; TEMP 36.9; O2SAT 99
[2022-07-26] MEDS: HYDROmorphone HCl 0.5 MG/0.5 ML SYRINGE 0.25 MG IVPUSH ×5 (00:17→21:11)
[2022-07-26 03:15] VITALS: BP 186/100; PULSE 85; RESP 18; TEMP 36.5; O2SAT 100
[2022-07-26 07:35] VITALS: BP 186/110; PULSE 80; RESP 20; TEMP 36.8; O2SAT 98
[2022-07-26 07:36] LABS: Glucose, Whole Blood 77 mg/dL (60-115)
--- NOTE | 2022-07-26 08:50 | PM.PNNEP ---
Subjective Subjective Date of Service: 07/26/22 Interval history: Refusing medications and blood draws. No new complaints Physical Exam Vital Signs: Vital Signs: Last Vital Signs Temp 98.3 F 07/26/22 07:35 Pulse 80 07/26/22 07:35 Resp 20 07/26/22 07:35 BP 186/110 H 07/26/22 07:35 Pulse Ox 98 07/26/22 07:35 O2 Del Method Room Air 07/26/22 07:35 O2 Flow Rate 2 07/26/22 03:15 BMI result Body Mass Index 31.5 Const: General: no acute distress Orientation/consciousness: patient oriented x3 Eyes: EOM: EOMs intact bilaterally Resp: Auscultation: diminished lung sounds Cardio: Rate: regular rate GI: Palpation (GI): Soft to palpation Neuro: General: patient oriented x3 and moves all extremities Objective Data Labs 07/24/22 17:35 07/24/22 19:50 Labs: Laboratory Results - last 24 hr 07/24/22 07/25/22 07/25/22 23:17 11:04 21:34 POC Glucose 76 81 Nasal Screen MRSA (PCR) POSITIVE A Nasal S. aureus Screen POSITIVE A Nasal MRSA/S.aureus Interp SEE NOTE 07/26/22 07:29 POC Glucose 77 Nasal Screen MRSA (PCR) Nasal S. aureus Screen Nasal MRSA/S.aureus Interp Microbiology Microbiology Results: Microbiology 07/24/22 17:35 Blood - Venous Blood Culture - Preliminary No growth after 24 hours. 07/24/22 17:35 Blood - Venous Blood Culture - Preliminary No growth after 24 hours. Procedures Date of Service Date of Service: 07/26/22 Assessment & Plan Assessment and plan (1) MYNOR (acute kidney injury): Status: Acute Assessment and Plan: MYNOR likely due to tubular injury Has CKD 4 at baseline Has metabolic acidosis NaHCO3 650 mg PO bid BP needs to be better controlled No NSAID's/ACEI/ARB Has anemia of Chronic Disease No indication for renal replacement yet Could increase hydralazine to 50 mg bid Could increase Imdur to 60 mg daily Shall closely follow up Progress Note: Quality Stroke Does the patient have a stroke diagnosis?: No
[2022-07-26 10:11] LABS: Hematocrit 27.3 % (37.0-47.0); Hemoglobin 8.5 g/dl (12.0-16.0); Mean Corpuscular HGB Conc 31.1 g/dl (31.0-35.0); Mean Corpuscular Hemoglobin 26.6 pg (27.0-33.0); Mean Corpuscular Volume 85.6 fL (80.0-98.0); Red Blood Count 3.19 X10*6/uL (4.20-5.50); Red Cell Distribution Width 19.1 % (11.0-16.0); White Blood Count 5.2 X10*3/uL (4.8-10.8)
[2022-07-26 10:27] LABS: Platelet Count 102 X10*3/uL (160-400)
[2022-07-26 10:32] LABS: Anion Gap 18 (12-20); Blood Urea Nitrogen 72 mg/dL (9-16); Calcium 7.9 mg/dL (8.4-10.2); Carbon Dioxide 14 mmol/L (22-29); Chloride 105 mmol/L (96-108); Creatinine Clr Calc Pharmacy 17.4; Estimated Glomerular Filt Rate 10; Glucose Random 67 mg/dL (60-115); Potassium 4.7 mmol/L (3.3-5.1); Sodium 132 mmol/L (135-145)
[2022-07-26] MEDS: Clindamycin Phosphate/D5W 600 MG/50 ML PIGGYBACK 100 MG IV ×2 (10:35→18:11)
[2022-07-26 10:50] LABS: HBS Num1 0.78 mIU/mL (0-7.99); HBc Num1 0.21 S/CO (0.00-0.79); HBsAGNum1 0.34 S/CO (0.00-0.99); HIV AB/AG Nonreactive (Nonreactive); HIV Num 1 0.06 S/CO (0.00-0.99); Hepatitis B Core Antibody Nonreactive (Nonreactive); Hepatitis B Surface Antigen Negative (Negative); ~HepC Num1 0.17 S/CO (0.00-0.79); ~Hepatitis A Antibody IgM Nonreactive (Nonreactive); ~Hepatitis B Surface Antibody NONREACTIVE (Nonreactive); ~Hepatitis C Antibody Nonreactive (Nonreactive)
--- NOTE | 2022-07-26 11:01 | P.PNCA_ITS ---
Subjective Subjective Date of Service: 07/26/22 Principal diagnosis: pericarditis, cardiomyopathy Interval history: patient was refusing to take her medications morning as she was nauseous. Her chest pain is improved with prednisone therapy. She has no fever. Her white cell count has improved. Review of Systems Constitutional: Reports no additional constitutional complaints Cardiovascular: Reports no additional cardiovascular complaints Gastrointestinal: Reports nausea Physical Exam Vital Signs: Last Vital Signs Temp 98.3 F 07/26/22 07:35 Pulse 80 07/26/22 07:35 Resp 20 07/26/22 07:35 BP 186/110 H 07/26/22 07:35 Pulse Ox 98 07/26/22 07:35 O2 Del Method Room Air 07/26/22 07:35 O2 Flow Rate 2 07/26/22 03:15 BMI result Body Mass Index 31.5 Const General: alert, awake and other (In pain) Nutritional Appearance: overweight Orientation/consciousness: patient oriented x3 HEENT Head: Yes normocephalic and Yes atraumatic Neck Neck: Yes trachea midline, Yes supple and Yes no JVD Resp Effort & Inspection: decreased respiratory effort Auscultation: clear to auscultation bilaterally, no rales and no wheezes Cardio Jugular venous distension: no JVD Rate: regular rate Rhythm: regular rhythm Heart sounds: S1 normal heart sound present, S2 normal heart sound present, no click, no gallops and no murmurs GI Auscultation: normal bowel sounds Skin General skin exam: no rashes or lesions noted Neuro General: patient oriented x3 and no focal motor deficits Extrem General: Yes no clubbing, cyanosis or edema Objective Labs and Meds 07/26/22 10:00 07/26/22 10:00 Lab results: Laboratory Results - last 24 hr 07/25/22 07/25/22 07/26/22 11:04 21:34 07:29 WBC RBC Hgb Hct MCV MCH MCHC RDW Plt Count MPV Absolute Nucleated RBC Nucleated RBC % (auto) Sodium Potassium Chloride Carbon Dioxide Anion Gap BUN Creatinine Estim Creat Clear Calc Estimated GFR POC Glucose 76 81 77 Random Glucose Calcium Hepatitis A IgM Ab Hep Bs Antigen Hep Bs Antibody Hep B Core Total Ab Hepatitis C Ab (EIA) HIV 1&2 Ab/P24 Ag 4thGn 07/26/22 07/26/22 07/26/22 10:00 10:00 10:00 WBC 5.2 RBC 3.19 L Hgb 8.5 L Hct 27.3 L MCV 85.6 MCH 26.6 L MCHC 31.1 RDW 19.1 H Plt Count 102 L D MPV Not Reportable Absolute Nucleated RBC 0.000 Nucleated RBC % (auto) 0.0 Sodium 132 L Potassium 4.7 D Chloride 105 Carbon Dioxide 14 L Anion Gap 18 BUN 72 H Creatinine 4.95 H* Estim Creat Clear Calc 17.4 Estimated GFR 10 POC Glucose Random Glucose 67 Calcium 7.9 L Hepatitis A IgM Ab Nonreactive Hep Bs Antigen Negative Hep Bs Antibody NONREACTIVE Hep B Core Total Ab Nonreactive Hepatitis C Ab (EIA) Nonreactive HIV 1&2 Ab/P24 Ag 4thGn Nonreactive Imaging Radiologist's impression: Impressions Venous Duplex 07/25/22 11:00 IMPRESSION: 1. No DVT demonstrated in the left lower extremity. 2. Small lymph nodes in the left groin and popliteal fossa. Progress Note: A&P Assessment and plan (1) Pericarditis: Status: Acute Assessment and Plan: Pericarditis which is improved with steroid therapy. Leukocytosis improved. Chest pain is improved. Continue prednisone therapy and will require slow taper. May require further hematologic workup as an outpatient but could be related to renal insufficiency. Discussed with Nephrology as well. Not a candidate for any other form of therapy at this point time given her advanced renal dysfunction. (2) HFrEF (heart failure with reduced ejection fraction): Status: Acute Assessment and Plan: Prior history of heart failure with reduced ejection fraction with poor co mpliance with medication including today refusing to take medication because of nausea. Nausea medicine therapy given. Importance of taking medications were discussed. Continue carvedilol. Hydralazine has been uptitrated to 50 mg b.i.d.. Isordil can be uptitrated 10 mg b.i.d.. Blood pressure remains difficult to control despite addition of these medications can add Norvasc and continue to up titrate hydralazine Isordil therapy. Overall prognosis is guarded given her lack of compliance with medications. Will sign of the case at this point time. Thank you for allowing me to partake in the care Time Spent With Patient Time: Total time managing care of this patient today ____ minutes. Progress Note: Quality Stroke Does the patient have a stroke diagnosis?: No Procedures Date of Service Date of Service: 07/26/22
[2022-07-26 11:29] LABS: Glucose, Whole Blood 78 mg/dL (60-115)
[2022-07-26 11:51] VITALS: BP 180/104; PULSE 79; RESP 20; TEMP 36.3; O2SAT 98
[2022-07-26] MEDS: carvediloL 12.5 MG TABLET 25 MG PO ×2 (12:07→21:12)
[2022-07-26] MEDS: Isosorbide Mononitrate 30 MG TAB.ER.24H PO (12:07)
[2022-07-26] MEDS: predniSONE 20 MG TABLET 40 MG PO (12:07)
--- NOTE | 2022-07-26 15:02 | P.PNIM_ITS ---
Subjective Subjective Date of Service: 07/26/22 Interval History: Complaining of nausea refused morning medications, complaining of persistent left leg pain, chest wall pain has improved, denies fever chills, no headache, no dizziness, more cooperative today than yesterday. Denies shortness of breath, no palpitations, no urinary symptoms, no diarrhea. Review of Systems All other system reviewed and negative. Physical Exam Vital Signs: Vital Signs: Last Vital Signs Temp 97.4 F 07/26/22 11:51 Pulse 79 07/26/22 11:51 Resp 20 07/26/22 11:51 BP 180/104 H 07/26/22 11:51 Pulse Ox 98 07/26/22 11:51 O2 Del Method Nasal Cannula 07/26/22 11:51 O2 Flow Rate 2 07/26/22 11:51 BMI result Body Mass Index 31.5 Const: Other: Gen: Awake alert in no acute distress Legally blind Neck: supple Lungs: clear to auscultation bilaterally, diminished breath sound pain with deep breathing Heart: regular rate and rhythm, no murmurs Abd: soft, non-tender, non-distended Ext: no edema RLE, left lower extremity swollen, tender calf and warm to touch with mild erythema. Skin: warm/well-perfused Neuro: alert and oriented x3, no focal findings Psych: appropriate affect Objective Data Active Medications Acetaminophen (Acetaminophen 325 Mg Tablet) 650 mg PO Q6H PRN PRN Reason: Pain, Mild (Pain Scale 1-3) Acetaminophen (Acetaminophen Supp 650 Mg Supp.Rect) 650 mg RI Q6H PRN PRN Reason: Pain, Mild (Pain Scale 1-3) Aspirin (Aspirin Enteric Coated 81 Mg Tablet.) 81 mg PO DAILY [facility] Last Admin: 07/26/22 09:26 Dose: Not Given Documented By: VIDAL Non-Admin Reason: Patient Refused Carvedilol (Carvedilol 12.5 Mg Tablet) 25 mg PO BID [facility]; Protocol Last Admin: 07/26/22 12:07 Dose: 25 mg Documented By: VIDAL Docusate Sodium (Docusate Sodium 100 Mg Capsule) 100 mg PO DAILY PRN PRN Reason: constipation Enoxaparin Sodium (Enoxaparin Sodium 30 Mg/0.3 Ml Syringe) 30 mg SUBCUT Q24H [facility] Last Admin: 07/25/22 21:59 Dose: Not Given Documented By: MARIE Non-Admin Reason: Patient Refused Glucose (Glucose Gel 15 Gm Gel..Gram.) 15 gm PO Q15M PRN; Protocol PRN Reason: per Hypoglycemia Standing Ord. Hydralazine HCl (Hydralazine Hcl 50 Mg Tablet) 50 mg PO BID [facility]; Protocol Hydromorphone HCl (Hydromorphone Hcl 0.5 Mg/0.5 Ml Syringe) 0.25 mg IVPUSH Q4H PRN; Protocol PRN Reason: Pain, Severe (Pain Scale 7-10) Last Admin: 07/26/22 10:36 Dose: 0.25 mg Documented By: VIDAL Dextrose (D10) 250 mls @ 750 mls/hr IV Q15M PRN; Protocol PRN Reason: per Hypoglycemia Standing Ord. Promethazine HCl 12.5 mg/ (Sodium Chloride) 50.5 mls @ 202 mls/hr IV Q6H PRN PRN Reason: Nausea and Vomiting Last Infusion: 07/26/22 11:58 Dose: 0 mls/hr Documented By: VIDAL Clindamycin Phosphate (Cleocin) 600 mg in 50 mls @ 100 mls/hr IV Q8H [facility] Last Infusion: 07/26/22 11:46 Dose: 0 mls/hr Documented By: VIDAL Insulin Human Lispro (Insulin Lispro 100 Unit/Ml 3 Ml Vial) 0 unit SUBCUT QIDACHS [facility]; Protocol Last Admin: 07/26/22 11:57 Dose: Not Given Documented By: VIDAL Non-Admin Reason: No Insulin Coverage Isosorbide Mononitrate (Isosorbide Mononitrate 30 Mg Tab.Er.24h) 30 mg PO DAILY [facility]; Protocol Last Admin: 07/26/22 12:07 Dose: 30 mg Documented By: VIDAL Melatonin (Melatonin 3 Mg Tablet) 6 mg PO BEDTIME PRN PRN Reason: Insomnia Omeprazole (Omeprazole 20 Mg Capsule.) 20 mg PO DAILY@0630 [facility] Last Admin: 07/26/22 06:01 Dose: Not Given Documented By: MARIE Non-Admin Reason: Patient Refused Ondansetron HCl (Ondansetron Hcl 4 Mg/2 Ml Vial) 4 mg IVPUSH Q8H PRN PRN Reason: Nausea and Vomiting Last Admin: 07/25/22 11:17 Dose: 4 mg Documented By: VIDAL Ondansetron HCl (Ondansetron Hcl 4 Mg/2 Ml Vial) 4 mg IVPUSH Q8H PRN PRN Reason: Nausea Oxycodone HCl (Oxycodone Hcl Immed Release 5 Mg Tablet) 5 mg PO Q6H PRN PRN Reason: Pain, Severe (Pain Scale 7-10) Last Admin: 07/25/22 05:37 Dose: 5 mg Documented By: MARIE Pharmacy Consult (Consult Rx Perform Med Rec) 1 each MISCELLANE ONCE PRN PRN Reason: Consult order Prednisone (Prednisone 20 Mg Tablet) 40 mg PO DAILY [facility] Last Admin: 07/26/22 12:07 Dose: 40 mg Documented By: VIDAL Sodium Chloride (0.9 % Sodium Chloride Flush 3 Ml Syringe) 3 ml IVFLUSH QSHIFT [facility] Last Admin: 07/26/22 09:27 Dose: Not Given Documented By: VIDAL Non-Admin Reason: Patient Refused Labs 07/26/22 10:00 07/26/22 10:00 Labs: Laboratory Results - last 24 hr 07/25/22 07/26/22 07/26/22 21:34 07:29 10:00 MCV MCH MCHC RDW Plt Count MPV Absolute Nucleated RBC Nucleated RBC % (auto) Anion Gap Estim Creat Clear Calc Estimated GFR POC Glucose 81 77 Random Glucose Calcium Hepatitis A IgM Ab Nonreactive Hep Bs Antigen Negative Hep Bs Antibody NONREACTIVE Hep B Core Total Ab Nonreactive Hepatitis C Ab (EIA) Nonreactive HIV 1&2 Ab/P24 Ag 4thGn Nonreactive 07/26/22 07/26/22 07/26/22 10:00 10:00 11:19 MCV 85.6 MCH 26.6 L MCHC 31.1 RDW 19.1 H Plt Count 102 L D MPV Not Reportable Absolute Nucleated RBC 0.000 Nucleated RBC % (auto) 0.0 Anion Gap 18 Estim Creat Clear Calc 17.4 Estimated GFR 10 POC Glucose 78 Random Glucose 67 Calcium 7.9 L Hepatitis A IgM Ab Hep Bs Antigen Hep Bs Antibody Hep B Core Total Ab Hepatitis C Ab (EIA) HIV 1&2 Ab/P24 Ag 4thGn Microbiology Microbiology Results: Microbiology 07/24/22 17:35 Blood Culture - Preliminary Blood - Venous No growth after 24 hours. 07/24/22 17:35 Blood Culture - Preliminary Blood - Venous No growth after 24 hours. 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 #.? Fever/leukocytosis/nausea, chest pain SIRS+, likely left leg cellulitis since noted to have redness and warmth this morning with persistent tenderness to palpation, no DVT on Doppler ultra sound Anterior chest pain with deep breathing, leukocytosis, elevated troponin likely Perimyocarditis UA positive for chronic 4+ bacteria no pyuria no nitrates, patient asymptomatic Differential diagnosis idiopathic pericarditis, and left lower extremity cellulitis, blood cultures x2 negative Continue prednisone is started on 07/25 for pericarditis, start tapering slowly once cp improves Will place on IV clindamycin for leg cellulitis, history of allergy to vancomycin and azithromycin Continue supportive care with antiemetics , IV Dilaudid and oxycodone. #.? MYNOR on CKD stage 4:?in the setting of above.? Monitor creatinine and urine output, hold diuretics, Avoid nephrotoxins, Appreciate nephrology assistance. Will add soda bicarb, follow BMP, push by mouth fluids. #.? Hypertensive urgency/emergency:? Continue Coreg , hydralazine and Isordil, hold nifedipine , Nephro recommend to increase dose of hydralazine to 50 b.i.d. and Isordil to 60 mg daily Dose of hydralazine increased, but hold off on increasing dose of Isordil, since patient not taking current medications to avoid precipitous drop of blood pressure . #.? Chronic congestive heart failure with reduced ejection fraction:? No evidence of CHF hold diuretics, continue Coreg follow clinical course #.? Insulin-dependent diabetes mellitus:? Diabetic diet, Accu-Cheks with sliding scale insulin, not on home medication #.? Chronic normocytic anemia is stable due to chronic kidney disease # hypertensive emergency presented with systolic BP greater than 200 likely due to noncompliance continue home medications and follow BP closely. DVT prophylaxis:? Lovenox 30 mg daily Full code Low-salt diet Patient required continued inpatient hospitalization for IV antibiotic and steroids for possible pericarditis and close renal follow-up due to worsening renal function Time Spent With Patient Time: Total time managing care of this patient today ____ minutes. Quality Stroke Does the patient have a stroke diagnosis?: No VTE Prior VTE?: No VTE Risk Level:: Medical - moderate - high VTE Device Contraindication: Treatment Not Indicated VTE Drug Contraindication: N/A - Med Ordered
[2022-07-26 15:36] VITALS: BP 157/89; PULSE 75; RESP 18; TEMP 37; O2SAT 96
[2022-07-26] MEDS: 0.9 % Sodium Chloride Flush 3 ML SYRINGE IVFLUSH (17:20)
[2022-07-26 19:57] VITALS: BP 157/89; PULSE 77; RESP 18; TEMP 37; O2SAT 98
[2022-07-26] MEDS: Sodium Bicarbonate 650 MG TABLET PO (21:12)
[2022-07-26] MEDS: hydrALAZINE HCl 50 MG TABLET PO (21:12)
[2022-07-26 23:14] VITALS: BP 177/93; PULSE 81; RESP 18; TEMP 36.3; O2SAT 99
[2022-07-27] MEDS: HYDROmorphone HCl 0.5 MG/0.5 ML SYRINGE 0.25 MG IVPUSH ×5 (01:12→21:29)
[2022-07-27] MEDS: Clindamycin Phosphate/D5W 600 MG/50 ML PIGGYBACK 100 MG IV ×3 (01:16→16:54)
[2022-07-27 03:22] VITALS: BP 150/82; PULSE 67; RESP 18; TEMP 36.1; O2SAT 98
[2022-07-27] MEDS: Omeprazole 20 MG CAPSULE.DR PO (05:29)
[2022-07-27 07:07] LABS: Glucose, Whole Blood 325 mg/dL (60-115)
[2022-07-27 07:12] VITALS: BP 143/83; PULSE 67; RESP 20; TEMP 36.2; O2SAT 98
[2022-07-27] MEDS: Insulin Lispro 100 UNIT/ML 3 ML VIAL SUBCUT ×2 (07:36→11:47)
[2022-07-27] MEDS: predniSONE 20 MG TABLET 40 MG PO (09:44)
[2022-07-27] MEDS: Isosorbide Mononitrate 30 MG TAB.ER.24H PO (09:44)
[2022-07-27] MEDS: Sodium Bicarbonate 650 MG TABLET PO (09:44)
[2022-07-27] MEDS: Aspirin Enteric Coated 81 MG TABLET.DR PO (09:44)
[2022-07-27] MEDS: carvediloL 12.5 MG TABLET 25 MG PO ×2 (09:44→21:26)
[2022-07-27] MEDS: hydrALAZINE HCl 50 MG TABLET PO ×2 (09:44→21:26)
[2022-07-27 11:23] VITALS: BP 120/68; PULSE 66; RESP 20; TEMP 36.2; O2SAT 94
[2022-07-27 11:29] LABS: Glucose, Whole Blood 199 mg/dL (60-115)
--- NOTE | 2022-07-27 12:00 | PM.PNNEP ---
Subjective Subjective Date of Service: 07/27/22 Principal diagnosis: pericarditis, cardiomyopathy Interval history: Events noted. All recent data reviewed Physical Exam Vital Signs: Vital Signs: Last Vital Signs Temp 97.2 F 07/27/22 11:23 Pulse 66 07/27/22 11:23 Resp 20 07/27/22 11:23 BP 120/68 07/27/22 11:23 Pulse Ox 94 07/27/22 11:23 O2 Del Method Room Air 07/27/22 11:23 O2 Flow Rate 2 07/27/22 03:22 BMI result Body Mass Index 31.5 Const: General: no acute distress Eyes: EOM: EOMs intact bilaterally Resp: Auscultation: diminished lung sounds Cardio: Rate: regular rate GI: Palpation (GI): Soft to palpation Neuro: General: moves all extremities Objective Data Labs 07/26/22 10:00 07/26/22 10:00 Labs: Laboratory Results - last 24 hr 07/27/22 07/27/22 06:58 11:25 POC Glucose 325 H 199 H Microbiology Microbiology Results: Microbiology 07/24/22 17:35 Blood - Venous Blood Culture - Preliminary No growth after 48 hours. 07/24/22 17:35 Blood - Venous Blood Culture - Preliminary No growth after 48 hours. Procedures Date of Service Date of Service: 07/27/22 Assessment & Plan Assessment and plan (1) MYNOR (acute kidney injury): Status: Acute Assessment and Plan: MYNOR likely due to tubular injury Has CKD 4 at baseline Has metabolic acidosis On NaHCO3 650 mg PO bid BP better controlled No NSAID's/ACEI/ARB Has anemia of Chronic Disease Check Iron/ Ferritn/ TIBC If T Sat > 20 %, shall give EPO No indication for renal replacement yet Continue current dose of hydralazine/Imdur Labs pending; Shall closely follow up Progress Note: Quality Stroke Does the patient have a stroke diagnosis?: No
--- NOTE | 2022-07-27 12:05 | HO.PM.IMPN ---
Subjective Subjective Date of Service: 07/27/22 Interval History: Seen and examined this morning Follow-up for chest, renal failure Chest pain resolved, feeling better declined labs today Review of Systems Review of Systems: Yes all other systems are reviewed and are negative Constitutional Constitutional: Denies chills and Denies fever(s) ENT Ears, Nose, Mouth, and Throat: Denies dizziness Cardiovascular Cardiovascular: Denies chest pain, Denies palpitations and Denies dyspnea Respiratory Respiratory: Denies cough and Denies dyspnea Gastrointestinal Gastrointestinal: Denies abdominal pain Neurologic Neurologic: Denies dizziness Endocrine Endocrine: Denies palpitations Physical Exam Vital Signs: Vital Signs: Last Vital Signs Temp 97.2 F 07/27/22 11:23 Pulse 66 07/27/22 11:23 Resp 20 07/27/22 11:23 BP 120/68 07/27/22 11:23 Pulse Ox 94 07/27/22 11:23 O2 Del Method Room Air 07/27/22 11:23 O2 Flow Rate 2 07/27/22 03:22 BMI result Body Mass Index 31.5 Const: General: cooperative, comfortable, alert and awake Nutritional Appearance: average body habitus Orientation/consciousness: patient oriented x3 Resp: Effort & Inspection: normal respiratory effort, able to speak in complete sentences, no respiratory distress and no use of accessory muscles Auscultation: clear to auscultation bilaterally Cardio: Rate: regular rate Heart sounds: S1 normal heart sound present and S2 normal heart sound present GI: Inspection: No distended Palpation (GI): Soft to palpation and nontender Skin: Other: no significant erythema Neuro: General: patient oriented x3 and CN's II-XI intact bilaterally Extrem: Other: mild edema b/l legs; transmetatarsal amp left foot and multiple toe amps right foot Objective Data Active Medications Acetaminophen (Acetaminophen 325 Mg Tablet) 650 mg PO Q6H PRN PRN Reason: Pain, Mild (Pain Scale 1-3) Acetaminophen (Acetaminophen Supp 650 Mg Supp.Rect) 650 mg NC Q6H PRN PRN Reason: Pain, Mild (Pain Scale 1-3) Aspirin (Aspirin Enteric Coated 81 Mg Tablet.) 81 mg PO DAILY [facility] Last Admin: 07/27/22 09:44 Dose: 81 mg Documented By: PER Carvedilol (Carvedilol 12.5 Mg Tablet) 25 mg PO BID [facility]; Protocol Last Admin: 07/27/22 09:44 Dose: 25 mg Documented By: PER Docusate Sodium (Docusate Sodium 100 Mg Capsule) 100 mg PO DAILY PRN PRN Reason: constipation Enoxaparin Sodium (Enoxaparin Sodium 30 Mg/0.3 Ml Syringe) 30 mg SUBCUT Q24H [facility] Last Admin: 07/26/22 21:47 Dose: Not Given Documented By: EVETTE Non-Admin Reason: Patient Refused Glucose (Glucose Gel 15 Gm Gel..Gram.) 15 gm PO Q15M PRN; Protocol PRN Reason: per Hypoglycemia Standing Ord. Hydralazine HCl (Hydralazine Hcl 50 Mg Tablet) 50 mg PO BID [facility]; Protocol Last Admin: 07/27/22 09:44 Dose: 50 mg Documented By: PER Hydromorphone HCl (Hydromorphone Hcl 0.5 Mg/0.5 Ml Syringe) 0.25 mg IVPUSH Q4H PRN; Protocol PRN Reason: Pain, Severe (Pain Scale 7-10) Last Admin: 07/27/22 09:43 Dose: 0.25 mg Documented By: PER Dextrose (D10) 250 mls @ 750 mls/hr IV Q15M PRN; Protocol PRN Reason: per Hypoglycemia Standing Ord. Promethazine HCl 12.5 mg/ (Sodium Chloride) 50.5 mls @ 202 mls/hr IV Q6H PRN PRN Reason: Nausea and Vomiting Last Infusion: 07/26/22 11:58 Dose: 0 mls/hr Documented By: VIDAL Clindamycin Phosphate (Cleocin) 600 mg in 50 mls @ 100 mls/hr IV Q8H [facility] Last Infusion: 07/27/22 10:38 Dose: 0 mls/hr Documented By: YOLIS Insulin Human Lispro (Insulin Lispro 100 Unit/Ml 3 Ml Vial) 0 unit SUBCUT QIDACHS [facility]; Protocol Last Admin: 07/27/22 11:47 Dose: 2 unit Documented By: YOLIS Isosorbide Mononitrate (Isosorbide Mononitrate 30 Mg Tab.Er.24h) 30 mg PO DAILY [facility]; Protocol Last Admin: 07/27/22 09:44 Dose: 30 mg Documented By: PER Melatonin (Melatonin 3 Mg Tablet) 6 mg PO BEDTIME PRN PRN Reason: Insomnia Omeprazole (Omeprazole 20 Mg Capsule.) 20 mg PO DAILY@0630 [facility] Last Admin: 07/27/22 05:29 Dose: 20 mg Documented By: EVETTE Ondansetron HCl (Ondansetron Hcl 4 Mg/2 Ml Vial) 4 mg IVPUSH Q8H PRN PRN Reason: Nausea and Vomiting Last Admin: 07/25/22 11:17 Dose: 4 mg Documented By: VIDAL Ondansetron HCl (Ondansetron Hcl 4 Mg/2 Ml Vial) 4 mg IVPUSH Q8H PRN PRN Reason: Nausea Oxycodone HCl (Oxycodone Hcl Immed Release 5 Mg Tablet) 5 mg PO Q6H PRN PRN Reason: Pain, Severe (Pain Scale 7-10) Last Admin: 07/25/22 05:37 Dose: 5 mg Documented By: MARIE Pharmacy Consult (Consult Rx Perform Med Rec) 1 each MISCELLANE ONCE PRN PRN Reason: Consult order Prednisone (Prednisone 20 Mg Tablet) 40 mg PO DAILY [facility] Last Admin: 07/27/22 09:44 Dose: 40 mg Documented By: PER Sodium Bicarbonate (Sodium Bicarbonate 650 Mg Tablet) 650 mg PO BID [facility] Last Admin: 07/27/22 09:44 Dose: 650 mg Documented By: PER Sodium Chloride (0.9 % Sodium Chloride Flush 3 Ml Syringe) 3 ml IVFLUSH QSHIFT [facility] Last Admin: 07/27/22 07:36 Dose: Not Given Documented By: YOLIS Non-Admin Reason: Patient Refused Labs 07/26/22 10:00 07/26/22 10:00 Labs: Laboratory Results - last 24 hr 07/27/22 07/27/22 06:58 11:25 POC Glucose 325 H 199 H Microbiology Microbiology Results: Microbiology 07/24/22 17:35 Blood Culture - Preliminary Blood - Venous No growth after 48 hours. 07/24/22 17:35 Blood Culture - Preliminary Blood - Venous No growth after 48 hours. 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 Fever/leukocytosis/nausea, chest pain SIRS+, likely left leg cellulitis since noted to have redness and warmth with persistent tenderness to palpation, no DVT on Doppler ultrasound Anterior chest pain with deep breathing, leukocytosis, elevated troponin likely r/t pericarditis UA positive for chronic 4+ bacteria no pyuria no nitrates, patient asymptomatic blood cultures negative Continue prednisone is started on 07/25 for pericarditis, start tapering slowly once cp improves Will place on IV clindamycin for leg cellulitis, history of allergy to vancomycin and azithromycin Continue supportive care with antiemetics, IV Dilaudid and oxycodone. MYNOR on CKD stage 4/metabolic acidosis: in the setting of above continue soda bicarb torsemide on hold nephrology following follow BMP - declined labs this am, but now willing one more time Hypertensive urgency/emergency:? BP improving presented with systolic BP greater than 200 likely due to noncompliance Continue Coreg , hydralazine and Isordil, hold nifedipine, Nephro recommend to increase dose of hydralazine to 50 b.i.d. and Isordil to 60 mg daily Dose of hydralazine increased, but hold off on increasing dose of Isordil, since patient not taking current medications to avoid precipitous drop of blood pressure . states that she takes her meds daily but frequently vomits them up although has no difficulty tolerating food - ?need for outpatient GES Chronic congestive heart failure with reduced ejection fraction:? No evidence of CHF hold diuretics, continue Coreg follow clinical course Insulin-dependent diabetes mellitus:? Diabetic diet, Accu-Cheks with sliding scale insulin, not on home medication Chronic normocytic anemia stable due to chronic kidney disease will check iron panel DVT prophylaxis:? Lovenox 30 mg daily Full code Low-salt diet attending - Dr. Diane Patient required continued inpatient hospitalization for IV antibiotic and steroids for possible pericarditis and close renal follow-up due to worsening renal function Time Spent With Patient Time: Total time managing care of this patient today ____ minutes. Quality Stroke Does the patient have a stroke diagnosis?: No VTE Prior VTE?: No VTE Risk Level:: Medical - moderate - high VTE Device Contraindication: Treatment Not Indicated VTE Drug Contraindication: N/A - Med Ordered
[2022-07-27 15:03] VITALS: BP 141/77; PULSE 68; RESP 18; TEMP 37.1; O2SAT 97
--- NOTE | 2022-07-27 15:50 | PC.NURSE ---
Patient refusing point of care. aware.
[2022-07-28] VITALS: BP 174/88; PULSE 70; RESP 20; TEMP 36.3; O2SAT 97
[2022-07-28] MEDS: Clindamycin Phosphate/D5W 600 MG/50 ML PIGGYBACK 100 MG IV ×2 (01:50→08:14)
[2022-07-28] MEDS: HYDROmorphone HCl 0.5 MG/0.5 ML SYRINGE 0.25 MG IVPUSH ×2 (01:51→05:40)
[2022-07-28 03:39] VITALS: BP 170/80; PULSE 69; RESP 20; TEMP 36.1; O2SAT 96
[2022-07-28 07:38] LABS: Glucose, Whole Blood 392 mg/dL (60-115)
[2022-07-28 07:43] VITALS: BP 137/77; PULSE 70; RESP 20; TEMP 36.4; O2SAT 94
[2022-07-28] MEDS: Isosorbide Mononitrate 30 MG TAB.ER.24H PO (08:12)
[2022-07-28] MEDS: carvediloL 12.5 MG TABLET 25 MG PO (08:12)
[2022-07-28] MEDS: Aspirin Enteric Coated 81 MG TABLET.DR PO (08:12)
[2022-07-28] MEDS: hydrALAZINE HCl 50 MG TABLET PO (08:13)
[2022-07-28] MEDS: Sodium Bicarbonate 650 MG TABLET PO (08:13)
[2022-07-28] MEDS: predniSONE 20 MG TABLET 40 MG PO (08:13)
[2022-07-28] MEDS: Insulin Lispro 100 UNIT/ML 3 ML VIAL SUBCUT (08:14)
[2022-07-28] MEDS: 0.9 % Sodium Chloride Flush 3 ML SYRINGE IVFLUSH (08:14)
[2022-07-28 09:17] LABS: Hemoglobin 9.4 g/dl (12.0-16.0)
[2022-07-28 09:19] LABS: Hematocrit 29.9 % (37.0-47.0); Mean Corpuscular HGB Conc 31.4 g/dl (31.0-35.0); Mean Corpuscular Hemoglobin 26.3 pg (27.0-33.0); Mean Corpuscular Volume 83.5 fL (80.0-98.0); NRBC Pct Auto 0.4 /100WBC (0.0-0.2); Platelet Count 118 X10*3/uL (160-400); Red Blood Count 3.58 X10*6/uL (4.20-5.50); Red Cell Distribution Width 18.3 % (11.0-16.0); White Blood Count 4.7 X10*3/uL (4.8-10.8)
[2022-07-28 09:29] LABS: PLT ABN DIST 1
[2022-07-28 09:45] LABS: Anion Gap 15 (12-20); Blood Urea Nitrogen 75 mg/dL (9-16); Calcium 7.5 mg/dL (8.4-10.2); Carbon Dioxide 18 mmol/L (22-29); Chloride 99 mmol/L (96-108); Creatinine Clr Calc Pharmacy 16.5; Estimated Glomerular Filt Rate 10; Glucose Random 455 mg/dL (60-115); Iron 28 mcg/dL (30-160); Percent Iron Saturation 11 % (15-50); Potassium 5.4 mmol/L (3.3-5.1); Sodium 127 mmol/L (135-145); Total Iron Binding Capacity 245 mcg/dL (228-428); Unsaturated Iron Binding 217 ug/dL
[2022-07-28 10:08] LABS: Ferritin 197 ng/mL (10-122)
--- NOTE | 2022-07-28 12:44 | MHC.CM.PN ---
Patient is not yet medically cleared for dc (IV Clindamycin, IV Dilaudid today); Home/resume services is the goal and CM will continue to follow.
--- NOTE | 2022-07-28 13:30 | PM.DS ---
DS: Providers Provider Date of Service: 07/28/22 Date of admission: 07/24/22 22:25 Date of discharge: 07/28/22 Primary care physician: Abdon Beard MD Consults: 07/24/22 22:32 Consult to Infectious Diseases Routine Consulting Provider: [facility] [place] Infectious Disease Reason for consultation: SIRS+ 07/24/22 22:51 Consult to Nephrology Routine Consulting Provider: Fernando Siddiqi Reason for consultation: Mynor on CKD 07/25/22 00:25 Consult to Cardiology Routine Consulting Provider: [facility] [place] Cardiovascular Services Reason for consultation: NSTEMI Has provider been notified: Yes Attending physician on discharge: Cheyenne Sears Discharging clinician: Angela Ulloa DS: Diagnosis Discharge Diagnosis (1) MYNOR (acute kidney injury): Status: Acute (2) Pericarditis: Status: Acute (3) HTN (hypertension): Status: Acute DS: Summary Hospital Course Hospital Course: From H&P on day of admission This is a 31-year-old female with pertinent history of essential hypertension, congestive heart failure with reduced ejection fraction, 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 Patient states that on the day of presentation, she started having fevers, chills, nausea, nonbloody emesis and chest and abdominal discomfort.? Patient states she did not take her home p.o. medications due to nausea.? No orthopnea, shortness of breath, cough, palpitations, changes in urinary or bowel habits.? Denies IV drug use.? Of note, Patient was recently admitted for hypertensive emergency and acute on chronic systolic heart failure but left AMA on 07/21. In the emergency department, SIRS+.? CT abdomen/chest without any acute abnormality Fever/leukocytosis/nausea, chest pain ?? ? SIRS+, likely left leg cellulitis since noted to have redness and warmth with persistent tenderness to palpation, no DVT on Doppler ultrasound ?? ? Anterior chest pain with deep breathing, leukocytosis, elevated troponin likely r/t pericarditis ?? ? UA positive for chronic 4+ bacteria no pyuria no nitrates, patient asymptomatic ?? ? blood cultures negative ?? ? Continue prednisone is started on 07/25 for pericarditis, start tapering slowly once cp improves ?? ? Will place on IV clindamycin for leg cellulitis, history of allergy to vancomycin and azithromycin MYNOR on CKD stage 4/metabolic acidosis: in the setting of above continue soda bicarb torsemide on hold nephrology following Hypertensive urgency/emergency:? BP improving presented with systolic BP greater than 200 likely due to noncompliance Continue Coreg , hydralazine and Isordil, hold nifedipine, Nephro recommend to increase dose of hydralazine to 50 b.i.d. and Isordil to 60 mg daily Dose of hydralazine increased, but hold off on increasing dose of Isordil, since patient not taking current medications to avoid precipitous drop of blood pressure . states that she takes her meds daily but frequently vomits them up although has no difficulty tolerating food - ?need for outpatient GES hyperkalemia lokelma ordered - patient declined unfortunately patient elected to leave against medical advice. her sodium was low and potassium was high, creatinine increasing, this was discussed with her in detail and importance of staying in the hospital for close monitoring was discussed. she states that she has follow up appointments scheduled and does not want to stay in the hospital any longer. she is awake, alert and oriented and understands the risks but could not be convinced to stay. prednisone taper for pericarditis was sent to the pharmacy which she is aware of. she is recommended to return to the ED with any chest pain Time Spent with Patient Time attestation: Total time managing care of this patient today ____ minutes. Discharge coordination time: Greater than 30 minutes Quality: Safe Use of Opioids Does Pt have an Active Cancer Diagnosis on the Problem List?: No Quality: Stroke Does the patient have a stroke diagnosis?: No Physical Exam Vital Signs: Vital Signs: Last Vital Signs Temp 97.5 F 07/28/22 07:43 Pulse 70 07/28/22 07:43 Resp 20 07/28/22 07:43 BP 137/77 07/28/22 07:43 Pulse Ox 94 07/28/22 07:43 O2 Del Method Room Air 07/28/22 07:43 O2 Flow Rate 2 07/27/22 15:03 BMI result Body Mass Index 31.5 DS: Data Data Completed and Pending Completed studies during hospitalization [Text1]: Procedures Detachment at Right Foot, Partial 1st Ray, Open Approach (03/01/20) Detachment at Right Foot, Partial 2nd Ray, Open Approach (03/01/20) Detachment at Right Foot, Partial 3rd Ray, Open Approach (03/01/20) Detachment at Right Foot, Partial 4th Ray, Open Approach (03/01/20) Detachment at Right Foot, Partial 5th Ray, Open Approach (03/01/20) Drainage of Right Pleural Cavity, Percutaneous Approach (01/14/21) Insertion of Infusion Device into Superior Vena Cava, Percutaneous Approach (01/14/21) Removal of Infusion Device from Great Vessel, External Approach (01/14/21) Transfusion of Nonautologous Red Blood Cells into Peripheral Vein, Percutaneous Approach (04/22/22) Labs on day of discharge: Laboratory Results - last 24 hr 07/28/22 07/28/22 07/28/22 07:07 08:37 08:37 WBC 4.7 L RBC 3.58 L Hgb 9.4 L Hct 29.9 L MCV 83.5 MCH 26.3 L MCHC 31.4 RDW 18.3 H Plt Count 118 L MPV Not Reportable Absolute Nucleated RBC 0.020 H Nucleated RBC % (auto) 0.4 H Sodium 127 L Potassium 5.4 H Chloride 99 Carbon Dioxide 18 L Anion Gap 15 BUN 75 H Creatinine 5.18 H* Estim Creat Clear Calc 16.5 Estimated GFR 10 POC Glucose 392 H* Random Glucose 455 H* Calcium 7.5 L Iron 28 L TIBC 245 % Saturation 11 L Unsat Iron Binding 217 Ferritin 197 H Preliminary micro results at discharge 07/24/22 17:35 Blood Culture - Preliminary Blood - Venous No growth after 48 hours. 07/24/22 17:35 Blood Culture - Preliminary Blood - Venous No growth after 48 hours. Discharge Plan Discharge Patient Disposition: Left Against Medical Advice Discharge Diagnosis: pericarditis left leg cellulitis MYNOR hyperkalemia hyponatremia uncontrolled HTN uncontrolled diabetes Referrals: Abdon Beard MD [Primary Care Provider] - 1 Week Micky Cotton MD [Physician] - 1 Week Fernando Siddiqi MD [Physician] - 1 Week Discharge Medications: New hydralazine 50 mg Tablet 50 mg PO BID 30 Days Qty: 60 0RF Protocol: Hold for SBP< HOLD for SBP < : 90 prednisone 10 mg tablet See Taper PO DAILY Qty: 74 0RF Taper: Prednisone 40 mg daily for 7 Days and 0 Hour 30 mg daily for 7 Days and 0 Hour 20 mg daily for 7 Days and 0 Hour 10 mg daily for 7 Days and 0 Hour 5 mg daily for 7 Days Continued acetaminophen 325 mg tablet 650 mg PO Q4H PRN (Reason: Pain) aspirin 81 mg tablet,delayed release (DR/EC) 1 tab PO DAILY pantoprazole 40 mg tablet,delayed release (DR/EC) 1 tab PO DAILY@0630 isosorbide mononitrate 30 mg tablet extended release 24 hr 30 mg PO DAILY Qty: 30 0RF docusate sodium 100 mg capsule 100 mg PO DAILY PRN (Reason: constipation) ferrous fumarate [Ferrocite] 324 mg (106 mg iron) tablet 324 mg PO DAILY carvedilol 12.5 mg Tablet 25 mg PO BID Qty: 60 0RF Protocol: Hold for SBP/HR < HOLD for SBP < : 90 HOLD for HR < : 60 Held nifedipine 60 mg Tablet Extended Release 24hr 60 mg PO DAILY Qty: 30 0RF Hold Instructions: hold Protocol: Hold for SBP< HOLD for SBP < : 90 torsemide 40 mg tablet 40 mg PO BID@0630,1630 Qty: 60 0RF Hold Instructions: hold Discharge Orders: Discharge Order (Routine); Ordered 07/28/22 Ordered By: Angela Ulloa Care Plan Goals: see below Health Concerns: Pericarditis Worsening renal function, MYNOR low sodium elevated potassium Plan of Treatment: pericarditis - take prednisone as prescribed - call to schedule follow up with cardiology worsening renal function - follow up with nephrology call to schedule follow up appointment with PCP Uncontrolled hypertension. monitor blood pressure daily monitor blood sugar before meal and at bedtime Assessment: left AMA Discharge Date/Time: 07/28/22 13:00
--- NOTE | 2022-07-28 13:32 | MHC.CM.PN ---
Patient has left AMA.
== END 2022-07-28 13:00 | disposition left against medical advice (07) | DRG 315 ==
LOC: HO.ED 22:22 → HO.EDOVER 22:28 → HO.IMC 07-25 00:59
PROVIDERS: Hospitalist; Physician Assistant; Admitting Provider Student in an Organized Health Care Education/Training Program; Emergency Provider Emergency Medicine; PCP Internal Medicine; Visit Provider Physician Assistant Medical
DX: I31.9 Disease of pericardium, unspecified (principal); E87.20 Acidosis, unspecified; I13.0 Hypertensive heart and chronic kidney disease with heart failure and stage 1 through stage 4 chronic kidney disease, or unspecified chronic kidney disease; I16.1 Hypertensive emergency; I50.22 Chronic systolic (congestive) heart failure; N18.4 Chronic kidney disease, stage 4 (severe); N17.9 Acute kidney failure, unspecified; L03.116 Cellulitis of left lower limb; Z91.148 Patient's other noncompliance with medication regimen for other reason; E11.40 Type 2 diabetes mellitus with diabetic neuropathy, unspecified; E11.319 Type 2 diabetes mellitus with unspecified diabetic retinopathy without macular edema; H54.8 Legal blindness, as defined in USA; A08.4 Viral intestinal infection, unspecified; E87.5 Hyperkalemia; E11.51 Type 2 diabetes mellitus with diabetic peripheral angiopathy without gangrene; E11.22 Type 2 diabetes mellitus with diabetic chronic kidney disease; Z20.822 Contact with and (suspected) exposure to COVID-19; Z79.82 Long term (current) use of aspirin; Z79.899 Other long term (current) drug therapy
CPT/HCPCS: 36415; 71045; 71250; 73630; 74176; 80048; 80053; 80307; 81001; 81025; 82728; 82947; 83540; 83605; 83690; 83735; 84484; 84702; 85025; 85027; 85610; 85730; 86140; 86704; 86706; 86709; 86803; 87040; 87340; 87389; 87502; 87635; 87640; 87641; 93005; 93971; 99285; J0692; J1170; J1650; J2405; J2543; J2550

== ENCOUNTER 2022-08-13 20:22 | Inpatient (IN) | payer OTHER, SELFPAY ==
--- NOTE | ~2022-08-13 | CT_ITS ---
EXAMINATION: CT HEAD AND ORBIT WITHOUT CONTRAST CLINICAL INFORMATION: Vision loss. COMPARISON: Brain MRI 04/01/2022. TECHNIQUE: Contiguous axial imaging was performed from the skull base to vertex and of the orbit without intravenous administration of contrast. This CT examination was performed using dose optimization techniques as appropriate, variously including the following: *Automated exposure control *Adjustment of mA and/or kV according to patient size (this includes techniques or standardized protocols for targeted exams where dose is matched to indication/reason for exam; i.e. extremities or head) *Use of iterative reconstruction technique DLP: 633 mGy-cm. FINDINGS: CT head: There is no intracranial hemorrhage, large infarction, or mass lesion. There is no extra-axial collection. The ventricles are normal in size and configuration without evidence of hydrocephalus. Mild hypoattenuation is seen within the cerebral white matter, nonspecific. There is a large amount of air within the venous system including within the cavernous sinuses, dural sinuses, and scattered throughout the extracranial veins. CT orbit: There is no preseptal soft tissue swelling. The lacrimal glands are normal in size. There is abnormal hyperdensity within the posterior globes on the right more than left, similar to improved compared with 04/01/2022. No proptosis. The extraocular muscles are normal in appearance and symmetric bilaterally. No intraorbital mass or hematoma. There is no reticulation or infiltration of the retrobulbar fat. The optic nerve sheath complexes are normal and symmetric bilaterally. There is no fracture. The superior ophthalmic veins are normal in size. CT/CT head/brain wo IV con IMPRESSION: 1. No acute intracranial abnormality. No hemorrhage, mass, or infarction. 2. Redemonstration of subretinal hemorrhages on the right greater than left. No evidence of orbital mass. 3. Large amount of air within the venous system including within the cavernous sinuses, dural sinuses, and scattered throughout the extracranial veins. This finding is presumably related to recent venous access.
--- NOTE | ~2022-08-13 | IR_ITS ---
PROCEDURE: IR INSERTION OF TUNNEL CATHETER CLINICAL INFORMATION: Need for urgent dialysis. COMPARISON: None available. TECHNIQUE: Right internal jugular tunneled dialysis catheter placement. All elements of maximal sterile barrier technique followed including use of cap, mask, sterile gown, sterile gloves, a sterile full body drape and hand hygiene. Also followed skin preparation with 2% chlorhexidine for cutaneous antisepsis, and sterile ultrasound preparation with sterile gel and probe cover when applicable. FINDINGS: Ultrasound evaluation of the neck was performed to evaluate access site for catheter placement. The right internal jugular vein is seen to be patent. Informed consent was obtained from the patient prior to the procedure. During this process, the procedure and potential alternatives were explained, along with the intended outcome and benefits. The risks of the procedure, as well as the risk of not doing the procedure, were discussed. The patient was given the opportunity to ask questions regarding the procedure and appeared competent to make medical decisions. A signed consent form which documents this discussion was placed in the medical record. Using sterile technique and ultrasound guidance the right internal jugular vein was punctured and guidewire directed down into the right atrium. Following this a larger 0.035 guidewire was directed into the inferior vena cava. Attention was then turned to creating catheter tunnel about the right anterior chest wall. A scalpel incision below the clavicle was made and the 14.5 [place] catheter was pulled through the tunnel track to the internal jugular puncture site. The indwelling internal jugular catheter sheath was then removed and following fascial dilatation the 14.5 [place] dual-lumen dialysis catheter was placed through peel-away sheath with its tip lying in the superior right atrium. Patient tolerated procedure without difficulty. The ports were flushed with sterile saline and then 0.6 mL of heparin, 5000 units per milliliter, was instilled within both ports. The neck puncture site was closed with a single subcuticular 4-0 Prolene suture and the skin site was closed with Dermabond. The catheter was sutured in place with a 3-0 monofilament suture. FLUOROSCOPY TIME: 0.9 minutes DAP: 638 mGy-cm2 CONSCIOUS SEDATION: The patient received intravenous conscious sedation under my direct supervision. A registered nurse monitored the patient and the patient's vital signs throughout the procedure. The total sedation time was 47 minutes. A total of 1 mg of Versed and 50 mcg fentanyl was given for good effect. IR/IR cvc insert central tunnel IMPRESSION: Placement of 14.5 [place] by 19 cm tunneled dual-lumen dialysis catheter via a right internal jugular approach with tip of catheter lying in the superior right atrium. The catheter is ready for use.
--- NOTE | ~2022-08-13 | IR_ITS ---
PROCEDURE: IR INSERTION OF TUNNEL CATHETER CLINICAL INFORMATION: Need for urgent dialysis. COMPARISON: None available. TECHNIQUE: Right internal jugular tunneled dialysis catheter placement. All elements of maximal sterile barrier technique followed including use of cap, mask, sterile gown, sterile gloves, a sterile full body drape and hand hygiene. Also followed skin preparation with 2% chlorhexidine for cutaneous antisepsis, and sterile ultrasound preparation with sterile gel and probe cover when applicable. FINDINGS: Ultrasound evaluation of the neck was performed to evaluate access site for catheter placement. The right internal jugular vein is seen to be patent. Informed consent was obtained from the patient prior to the procedure. During this process, the procedure and potential alternatives were explained, along with the intended outcome and benefits. The risks of the procedure, as well as the risk of not doing the procedure, were discussed. The patient was given the opportunity to ask questions regarding the procedure and appeared competent to make medical decisions. A signed consent form which documents this discussion was placed in the medical record. Using sterile technique and ultrasound guidance the right internal jugular vein was punctured and guidewire directed down into the right atrium. Following this a larger 0.035 guidewire was directed into the inferior vena cava. Attention was then turned to creating catheter tunnel about the right anterior chest wall. A scalpel incision below the clavicle was made and the 14.5 [place] catheter was pulled through the tunnel track to the internal jugular puncture site. The indwelling internal jugular catheter sheath was then removed and following fascial dilatation the 14.5 [place] dual-lumen dialysis catheter was placed through peel-away sheath with its tip lying in the superior right atrium. Patient tolerated procedure without difficulty. The ports were flushed with sterile saline and then 0.6 mL of heparin, 5000 units per milliliter, was instilled within both ports. The neck puncture site was closed with a single subcuticular 4-0 Prolene suture and the skin site was closed with Dermabond. The catheter was sutured in place with a 3-0 monofilament suture. FLUOROSCOPY TIME: 0.9 minutes DAP: 638 mGy-cm2 CONSCIOUS SEDATION: The patient received intravenous conscious sedation under my direct supervision. A registered nurse monitored the patient and the patient's vital signs throughout the procedure. The total sedation time was 47 minutes. A total of 1 mg of Versed and 50 mcg fentanyl was given for good effect. IR/IR us guide venous access IMPRESSION: Placement of 14.5 [place] by 19 cm tunneled dual-lumen dialysis catheter via a right internal jugular approach with tip of catheter lying in the superior right atrium. The catheter is ready for use.
--- NOTE | ~2022-08-13 | XR_ITS ---
EXAMINATION: XR CHEST CLINICAL INFORMATION: Shortness of breath COMPARISON: 07/24/2022 TECHNIQUE: Frontal view of the chest was obtained. FINDINGS: Elevation right hemidiaphragm without change. Minor peribronchial thickening. No significant abnormality is noted involving the heart, lungs, mediastinum, bony thorax or soft tissues. XR/XR chest 1V IMPRESSION: Changes of mild bronchitis. No infiltrate.
[2022-08-13 20:25] VITALS: BP 171/118; BP 230/136; PULSE 110; PULSE 115; RESP 24; TEMP 36.5; O2SAT 100; O2SAT 99; BMI 34.1
--- NOTE | 2022-08-13 20:41 | ECG_ITS ---
Test Reason : HYPERTENTION Blood Pressure : / mmHG Vent. Rate : 109 BPM Atrial Rate : 109 BPM P-R Int : 144 ms QRS Dur : 134 ms QT Int : 388 ms P-R-T Axes : 036 005 078 degrees QTc Int : 522 ms Sinus tachycardia Right bundle branch block Abnormal ECG When compared with ECG of 24-JUL-2022 17:37, No significant changes seen Referred By: Generic ED Physician Electronically Signed By:JASKARAN COOL
[2022-08-13 21:18] LABS: Basophils Percent Auto 0.5 % (0-2); Eosinophils Absolute Auto 0.1 X10*3/uL (0.0-0.4); Eosinophils Percent Auto 2.5 % (0-4); Hematocrit 30.3 % (37.0-47.0); Hemoglobin 9.1 g/dl (12.0-16.0); Imm Gran Abs Auto 0.01 X10*3/uL (0.00-0.03); Imm Gran Pct Auto 0.3 % (0.0-0.4); Lymphocytes Absolute Auto 0.5 X10*3/uL (1.2-4.9); Lymphocytes Percent Auto 13.2 % (20-40); MANUAL DIFF FLAG NO; Mean Corpuscular Hemoglobin 27.1 pg (27.0-33.0); Mean Corpuscular Volume 90.2 fL (80.0-98.0); Mean Platelet Volume 11.1 fL (9.4-12.3); Monocytes Absolute Auto 0.2 X10*3/uL (0.1-1.2); Monocytes Percent Auto 4.8 % (2-11); Neutrophils Absolute Auto 3.1 x10*3/uL (2.0-8.3); Neutrophils Percent Auto 78.7 % (45-73); Platelet Count 132 X10*3/uL (160-400); Red Blood Count 3.36 X10*6/uL (4.20-5.50); Red Cell Distribution Width 22.5 % (11.0-16.0)
--- NOTE | 2022-08-13 21:18 | ED_ITS ---
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 Patient also states that she has persistent nausea and has not been able to take her medications for 2 days, she states then a time she takes her medicines she vomits. The patient denied fever, chills, rhinorrhea or sore throat. She states that she has had a cough which is nonproductive pain. She is complaining of bilateral chest pain which is worse with breathing and with coughing, the pain is 8/10. She feels short of breath at rest. She states she makes very little urine secondary to her chronic kidney disease but has had no dysuria. The patient's sister was concerned about her shortness of breath and about the b leeding that was coming from her left foot therefore she called an ambulance and had the patient transported to the emergency department for evaluation. The patient was admitted to the hospital on 07/06/2022 and discharged on 07/28/2022. The patient at that time had hypertensive emergency, congestive heart failure, pericarditis(treated with prednisone). She had a negative duplex ultrasound of her right lower extremity at that time. The patient did receive labetalol for her elevated blood pressures. Related Data Home Medications Medication Instructions Recorded Confirmed carvedilol 12.5 mg tablet 12.5 mg PO BID 08/13/22 08/13/22 docusate sodium 100 mg capsule 100 mg PO DAILY PRN constipation 08/13/22 08/13/22 ferrous fumarate 324 mg (106 mg 324 mg PO DAILY 08/13/22 08/13/22 iron) tablet (Ferrocite) hydralazine 25 mg tablet 75 mg PO TID 08/13/22 08/13/22 nifedipine 60 mg tablet,extended 60 mg PO DAILY 08/13/22 08/13/22 release 24 hr oxycodone 5 mg tablet 5 mg PO Q6H PRN severe pain 08/13/22 08/13/22 prednisone 10 mg tablet 10 mg PO 1XD 08/13/22 08/13/22 torsemide 20 mg tablet 40 mg PO BID 08/13/22 08/13/22 Allergies Allergy/AdvReac Type Severity Reaction Status Date / Time morphine [MORPHINE] Allergy Intermediate Itching Verified 08/13/22 22:17 azithromycin [From Zithromax] Allergy Hives Verified 08/13/22 22:17 gabapentin Allergy Facial Verified 08/13/22 22:17 Swelling tramadol Allergy Facial Verified 08/13/22 22:17 Swelling vancomycin Allergy Hives Verified 08/13/22 22:17 Review of Systems Review of Systems: Yes all other systems are reviewed and are negative [facility] Past Medical History [facility] Narrative: Social history: She lives with her sister. She denies tobacco, alcohol and drug use Medical History Abnormal finding on echocardiogram Acute dyspnea Acute worsening of stage 3 chronic kidney disease MYNOR (acute kidney injury) Anemia Anemia in chronic kidney disease (CKD) Asthma Back pain Blind right eye Bone infection Cellulitis Cellulitis and abscess of foot delivery delivered Chest pain CHF (congestive heart failure) (~06/07/22) CKD (chronic kidney disease) CKD (chronic kidney disease) Depression with anxiety Diabetes Diabetic retinopathy DM foot ulcer Elevated troponin Essential hypertension Fever Generalized edema HTN (hypertension) Hypertension (~06/10/22) Migraine Osteomyelitis PAD (peripheral artery disease) Pleural effusion test positive test positive Sepsis Severe anemia Tachycardia Type 2 diabetes mellitus with hyperglycemia, with long-term current use of insulin Surgical History History of transmetatarsal amputation of foot S/P transmetatarsal amputation of foot Family History Family History Mother Coronary artery disease Myocardial infarction Stroke Diabetes mellitus Father Myocardial infarction Social History Social History Household Members: Spouse Household Members Other:: Sister, [id number], nephew Housing: Apartment Do you presently have visiting nurse or other home services: Yes (services) Alcohol intake: never Patient Tobacco Use Status: Tobacco use Unknown Smoked in Last 30 Days: No e-Cigarette/Vaping Use: Never Used Second Hand Smoke Exposure: No Use of substances other than those prescribed or required for medical reasons: No Advance Directives: No Advance Directives Information Provided: No Advance Directives Date on File: 03/08/20 Patient : No service: No Current occupational status: unemployed and disabled Gender identity: Female Physical Exam ED Vital Signs: Vital Signs - 24 hr 08/13/22 20:25 08/13/22 22:57 08/13/22 22:54 Temperature 97.7 F 97.7 F Pulse Rate 110 H 104 H Respiratory Rate 24 H 15 Blood Pressure 230/136 H 188/109 H Pulse Oximetry 99 95 Oxygen Delivery Method Room Air Room Air Oxygen Flow Rate 08/13/22 23:10 08/14/22 00:19 08/14/22 02:15 Temperature 97.8 F Pulse Rate 98 94 89 Respiratory Rate 12 15 20 Blood Pressure 176/102 H 181/111 H 187/118 H Pulse Oximetry 94 98 99 Oxygen Delivery Method Room Air Nasal Cannula Nasal Cannula Oxygen Flow Rate 2 2 08/14/22 03:03 08/14/22 03:08 08/14/22 04:17 Temperature Pulse Rate 88 84 Respiratory Rate 13 18 16 Blood Pressure 184/114 H 176/118 H Pulse Oximetry 99 98 Oxygen Delivery Method Nasal Cannula Nasal Cannula Oxygen Flow Rate 2 2 BMI result Body Mass Index 34.1 Const Other: Awake, alert, female patient, she has very limited vision and can only see out of her left eye, she does not appear to be in distress [facility] Head: Yes normal to inspection, Yes normocephalic and Yes atraumatic Ears: external ears normal General nose exam: Normal external nose present Face and sinus: Yes normal facial exam Mouth: Normal oral and palatal mucosa present Throat: Yes posterior oropharynx normal Eyes Other: The patient's right cornea is sclerotic, she is blind in the right eye, the patient is able to minimally see of the left eye Neck Neck: Yes normal visual inspection, Yes no lymphadenopathy, Yes trachea midline and Yes supple Chest Other: Patient has bilateral chest wall tenderness Resp Other: Diminished breath sounds bilaterally, no wheezing or rhonchi, rales at the bases Cardio Other: Tachycardia, normal S1-S2, no murmur GI Inspection: Yes normal to inspection Palpation (GI): Soft to palpation, nontender and no guarding Auscultation: normal bowel sounds General: Yes no CVA tenderness Back/Spine/Pelvis Back: no CVA tenderness Skin General skin exam: no rashes or lesions noted Neuro Cranial nerves: Yes CN's II-XII intact bilaterally Cognition (Neuro): normal cognition Motor exam (neuro): 5/5 motor strength present throughout Extrem Other: Trace to 1+ pitting edema, bilaterally symmetric. Left foot: Amputation of the 1st and 4th toes, the patient has avulsion of the skin over the tip of the 2nd toe with no erythema or increased warmth or purulent discharge. She has 2 chronic ulcers on the dorsal aspect of her foot which do not appear to be infected, there is no purulent drainage noted. Psych Appearance: grossly normal Speech and movement: Normal speech and movement present Affect: normal affect Medications Administered Discontinued Medications Generic Name Dose Route Start Last Admin Trade Name Freq PRN Reason Stop Dose Admin Amlodipine Besylate 10 mg 08/14/22 04:26 08/14/22 05:08 Amlodipine Besylate 10 Mg Tablet PO 08/14/22 04:27 10 mg ONCE ONE Administration Protocol Carvedilol 12.5 mg 08/14/22 04:26 08/14/22 05:09 Carvedilol 12.5 Mg Tablet PO 08/14/22 04:27 12.5 mg ONCE ONE Administration Protocol Furosemide 80 mg 08/13/22 22:09 08/13/22 23:01 Furosemide 100 Mg/10 Ml Vial IVPUSH 08/13/22 22:10 80 mg ONCE ONE Administration Protocol Hydralazine HCl 50 mg 08/14/22 04:26 08/14/22 05:09 Hydralazine Hcl 50 Mg Tablet PO 08/14/22 04:27 50 mg ONCE ONE Administration Protocol Hydromorphone HCl 1 mg 08/13/22 22:09 08/13/22 22:57 Hydromorphone Hcl 1 Mg/Ml Syringe IVPUSH 08/13/22 22:10 1 mg ONCE STA Administration Protocol Hydromorphone HCl 1 mg 08/14/22 02:54 08/14/22 03:03 Hydromorphone Hcl 1 Mg/Ml Syringe IVPUSH 08/14/22 02:55 1 mg ONCE STA Administration Protocol Isosorbide Dinitrate 10 mg 08/14/22 04:26 08/14/22 05:49 Isosorbide Dinitrate 10 Mg Tablet PO 08/14/22 04:27 Not Given ONCE ONE Protocol Labetalol HCl 10 mg 08/13/22 22:09 08/13/22 23:00 Labetalol Hcl 100 Mg/20 Ml Vial IVPUSH 08/13/22 22:10 10 mg ONCE ONE Administration Labetalol HCl 10 mg 08/13/22 23:38 08/13/22 23:44 Labetalol Hcl 100 Mg/20 Ml Vial IVPUSH 08/13/22 23:39 10 mg ONCE ONE Administration Labetalol HCl 20 mg 08/14/22 01:14 08/14/22 01:39 Labetalol Hcl 100 Mg/20 Ml Vial IVPUSH 08/14/22 01:15 20 mg ONCE ONE Administration Labetalol HCl 20 mg 08/14/22 02:06 08/14/22 04:16 Labetalol Hcl 100 Mg/20 Ml Vial IVPUSH 20 mg Q10M PRN Administration X3 doses for SBP>160 Nifedipine 60 mg 08/14/22 04:26 08/14/22 05:52 Nifedipine Er 60 Mg Tab.Er.24 PO 08/14/22 04:27 60 mg ONCE ONE Administration Protocol Ondansetron HCl 4 mg 08/13/22 23:38 08/13/22 23:47 Ondansetron Hcl 4 Mg/2 Ml Vial IVPUSH 08/13/22 23:39 4 mg ONCE ONE Administration Medical Decision Making Medical Decision Making MDM Narrative: 31-year-old female with pertinent history of essential hypertension, congestive heart failure with reduced ejection fraction, 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 The patient has not been taking her medications for 2 days. Vital signs revealed an elevated blood pressure of 230/136, elevated pulse of 100 and elevated respiratory rate of 24. Patient does have peripheral edema and lung exam is concerning for possible congestive heart failure. Patient left does have bleeding from the tip of the 2nd toe but the foot does not appear to be infected, she has chronic diabetic ulcers on the plantar aspect of the foot which do not appear to be draining purulent material pain. The following tests were ordered: CBC, BMP, liver panel, PT/INR, lipase, troponin, lactic acid, blood cultures x2 The patient does have an elevated blood pressure this is most likely secondary to her chronic kidney disease and noncompliance with her medications over the past 2 days, I do not think that she has hypertensive crisis or emergency at this time. Patient was ordered to get labetalol 10 mg IV. She was also ordered to get Lasix 80 mg IV for CHF and Dilaudid 1 mg IV for chest pain 0115: Initial troponin was elevated, repeat 3 hour troponin was unchanged suggesting that patient does not have acute myocardial injure, elevation most likely secondary to her chronic kidney disease Patient's blood pressure has minimally responded to IV labetalol 10 mg and 10 mg IV push. I ordered a 3rd dose of labetalol 20 mg IV push. I also ordered the patient's outpatient medications including carvedilol, hydralazine, Norvasc and nifedipine 0607: The patient blood pressure has improved to 146/88 The patient the be admitted for persistent nausea and vomiting and further management of her hypertension 0620: I did discuss the patient's presentation with the covering hospitalist Dr. Lopez. She will admit the patient Dr. Lopez did discuss the elevated troponins with our covering timber estimator, Dr. Cotton. He recommended giving NSTEMI does heparin and this was ordered. Differential Diagnosis Differential diagnosis or chest pain and shortness of breath includes but is not limited to fluid overload, congestive heart failure, pneumonia, myocardial infarction, myocardial ischemia Differential diagnosis for elevated blood pressure includes was not limited hypertensive emergency, hypertensive crisis, uncontrolled essential hypertension secondary to noncompliance Admission/Observation Consideration of admission/observation: Escalation of care including admission/observation considered Consult Healthcare Provider Management of the patient was discussed with: Hospitalist Lab Data [facility] Lab Attestation statement: I reviewed the patient's lab results. My independent interpretation patient's laboratory evaluation as follows: CBC is abnormal but chronic. BUN creatinine are elevated 41 and 3.56-chronic. Glucose elevated 180. First troponin was elevated 1298 repeat 3 hour troponin was unchanged at 1011.8 08/13/22 21:10 08/13/22 21:10 Labs: Lab Results 08/13/22 08/13/22 08/13/22 Range/Units 21:10 21:10 21:10 WBC 4.0 L (4.8-10.8) X10*3/uL RBC 3.36 L (4.20-5.50) X10*6/uL Hgb 9.1 L (12.0-16.0) g/dl Hct 30.3 L (37.0-47.0) % MCV 90.2 (80.0-98.0) fL MCH 27.1 (27.0-33.0) pg MCHC 30.0 L (31.0-35.0) g/dl RDW 22.5 H (11.0-16.0) % Plt Count 132 L (160-400) X10*3/uL MPV 11.1 (9.4-12.3) fL Immature Gran % (Auto) 0.3 (0.0-0.4) % Neut % (Auto) 78.7 H (45-73) % Lymph % (Auto) 13.2 L (20-40) % [place] % (Auto) 4.8 (2-11) % Eos % (Auto) 2.5 (0-4) % Baso % (Auto) 0.5 (0-2) % Lymph # (Auto) 0.5 L (1.2-4.9) X10*3/uL [place] # (Auto) 0.2 (0.1-1.2) X10*3/uL Eos # (Auto) 0.1 (0.0-0.4) X10*3/uL Baso # (Auto) 0.0 (0.0-0.2) X10*3/uL Abs Immat Gran (auto) 0.01 (0.00-0.03) X10*3/uL Absolute Neuts (auto) 3.1 (2.0-8.3) x10*3/uL Absolute Nucleated RBC 0.000 (0.0-0.012) X10*3/uL Nucleated RBC % (auto) 0.0 (0.0-0.2) /100WBC PT 14.4 H (10.0-13.1) SEC INR 1.2 H (0.9-1.1) Sodium 139 (135-145) mmol/L Potassium 4.5 (3.3-5.1) mmol/L Chloride 114 H (96-108) mmol/L Carbon Dioxide 18 L (22-29) mmol/L Anion Gap 12 (12-20) BUN 41 H (9-16) mg/dL Creatinine 3.56 H (0.5-1.4) mg/dL Estim Creat Clear Calc 25.1 Estimated GFR 15 Random Glucose 180 H (60-115) mg/dL Lactic Acid (0.5-2.0) mmol/L Calcium 8.4 D (8.4-10.2) mg/dL Total Bilirubin 1.8 H (0.0-1.0) mg/dL Direct Bilirubin 0.6 H (0.0-0.5) mg/dL AST 18 (5-31) U/L ALT 23 (0-31) U/L Alkaline Phosphatase 99 (39-117) U/L Troponin I High Sens (<3.5-17.0) ng/L Total Protein 6.8 (6.5-8.0) g/dL Albumin 2.7 L (3.5-5.0) g/dL Lipase 48 (8-78) U/L 08/13/22 08/13/22 08/14/22 Range/Units 21:10 21:11 00:39 WBC (4.8-10.8) X10*3/uL RBC (4.20-5.50) X10*6/uL Hgb (12.0-16.0) g/dl Hct (37.0-47.0) % MCV (80.0-98.0) fL MCH (27.0-33.0) pg MCHC (31.0-35.0) g/dl RDW (11.0-16.0) % Plt Count (160-400) X10*3/uL MPV (9.4-12.3) fL Immature Gran % (Auto) (0.0-0.4) % Neut % (Auto) (45-73) % Lymph % (Auto) (20-40) % [place] % (Auto) (2-11) % Eos % (Auto) (0-4) % Baso % (Auto) (0-2) % Lymph # (Auto) (1.2-4.9) X10*3/uL [place] # (Auto) (0.1-1.2) X10*3/uL Eos # (Auto) (0.0-0.4) X10*3/uL Baso # (Auto) (0.0-0.2) X10*3/uL Abs Immat Gran (auto) (0.00-0.03) X10*3/uL Absolute Neuts (auto) (2.0-8.3) x10*3/uL Absolute Nucleated RBC (0.0-0.012) X10*3/uL Nucleated RBC % (auto) (0.0-0.2) /100WBC PT (10.0-13.1) SEC INR (0.9-1.1) Sodium (135-145) mmol/L Potassium (3.3-5.1) mmol/L Chloride (96-108) mmol/L Carbon Dioxide (22-29) mmol/L Anion Gap (12-20) BUN (9-16) mg/dL Creatinine (0.5-1.4) mg/dL Estim Creat Clear Calc Estimated GFR Random Glucose (60-115) mg/dL Lactic Acid 1.1 (0.5-2.0) mmol/L Calcium (8.4-10.2) mg/dL Total Bilirubin (0.0-1.0) mg/dL Direct Bilirubin (0.0-0.5) mg/dL AST (5-31) U/L ALT (0-31) U/L Alkaline Phosphatase (39-117) U/L Troponin I High Sens 1209.8 H* D 1011.8 H* (<3.5-17.0) ng/L Total Protein (6.5-8.0) g/dL Albumin (3.5-5.0) g/dL Lipase (8-78) U/L Independent Interpretation I performed an independent interpretation of an: EKG and Plain X-Ray Interpretation: My independent interpretation patient's chest x-ray is the heart failure, this is different from the radiology reading below. My independent interpretation of the patient's 12 EKG done at 20:39 hours is as follows: Sinus tachycardia with a rate of 109, prolonged QRS and duration of 134 milliseconds, prolonged QTC interval 522 milliseconds, no ST segment elevation, no ST segment depression, no significant T-wave abnormalities, right bundle-branch block Radiology Impression Discussion of test interpretation with radiology: I have reviewed the radiologist's reading. Radiologist Impression: XR chest 1V IMPRESSION: Changes of mild bronchitis. No infiltrate. Dictated By:Keshawn Noble MD Critical Care Time Critical Care Time Critical Care Time: Yes Total Critical Care Time: 120 Attestation: Critical Care: The patient was critically ill with a high probability of imminent or life threatening deterioration. I spent greater than 30 minutes of discontinuous time evaluating the patient,delivering critical care at the bedside, discussing and evaluating pertinent data with consultants. Critical care time does not include time spent performing separately billable procedures or teaching. Total time spent performing critical care was 20 minutes. Discharge Plan Discharge Clinical Impression: Hypertensive crisis, Pleuritic chest pain, Vomiting, Elevated troponin I level Patient Disposition: Admitted As Inpatient Prescriptions: No Action prednisone 10 mg tablet 10 mg PO 1XD carvedilol 12.5 mg tablet 12.5 mg PO BID torsemide 20 mg tablet 40 mg PO BID hydralazine 25 mg tablet 75 mg PO TID nifedipine 60 mg tablet extended release 24hr 60 mg PO DAILY docusate sodium 100 mg capsule 100 mg PO DAILY PRN (Reason: constipation) oxycodone 5 mg tablet 5 mg PO Q6H PRN (Reason: severe pain) ferrous fumarate [Ferrocite] 324 mg (106 mg iron) tablet 324 mg PO DAILY
[2022-08-13 21:26] LABS: INTERNATIONAL NORM RATIO 1.2 (0.9-1.1); Prothrombin Time 14.4 SEC (10.0-13.1)
[2022-08-13 21:42] LABS: Lactic Acid 1.1 mmol/L (0.5-2.0)
[2022-08-13 21:46] LABS: Alanine Aminotransferase 23 U/L (0-31); Albumin Level 2.7 g/dL (3.5-5.0); Alkaline Phosphatase 99 U/L (39-117); Anion Gap 12 (12-20); Aspartate Amino Transferase 18 U/L (5-31); Bilirubin Direct 0.6 mg/dL (0.0-0.5); Bilirubin Total 1.8 mg/dL (0.0-1.0); Blood Urea Nitrogen 41 mg/dL (9-16); Calcium 8.4 mg/dL (8.4-10.2); Carbon Dioxide 18 mmol/L (22-29); Chloride 114 mmol/L (96-108); Creatinine Clr Calc Pharmacy 25.1; Estimated Glomerular Filt Rate 15; Glucose Random 180 mg/dL (60-115); Lipase 48 U/L (8-78); Potassium 4.5 mmol/L (3.3-5.1); Sodium 139 mmol/L (135-145); Total Protein 6.8 g/dL (6.5-8.0)
[2022-08-13 21:55] LABS: Troponin-I High Sensitivity 1209.8 ng/L (<3.5-17.0)
--- NOTE | 2022-08-13 22:10 | PC.NURSE ---
provider aware of trop 1209.8 result meds to follow to also address htn
--- NOTE | 2022-08-13 22:16 | PC.NURSE ---
med rec completed with pt
[2022-08-13 22:54] VITALS: BP 188/109; PULSE 104; TEMP 36.5; O2SAT 95
[2022-08-13 22:57] VITALS: RESP 15
[2022-08-13] MEDS: HYDROmorphone HCl 1 MG/ML SYRINGE IVPUSH (22:57)
[2022-08-13] MEDS: Labetalol HCL 100 MG/20 ML VIAL 10 MG IVPUSH ×2 (23:00→23:44)
[2022-08-13] MEDS: Furosemide 100 MG/10 ML VIAL 80 MG IVPUSH (23:01)
--- NOTE | 2022-08-13 23:03 | PC.NURSE ---
administered 1mg dilaudid IV push, 80 mg furosemide IV push, 10 mg labetolol IV push per mAR
--- NOTE | 2022-08-13 23:05 | PC.NURSE ---
pt's left foot wrap with nonadhesive pad on toe with wound sock over bandage per pt's request prior to wrapping cleansed with sterile solution provider aware
[2022-08-13 23:10] VITALS: BP 176/102; PULSE 98; RESP 12; O2SAT 94
[2022-08-13] MEDS: ondansetron HCL 4 MG/2 ML VIAL IVPUSH (23:47)
--- NOTE | 2022-08-13 23:48 | PC.NURSE ---
administered 10 mg labetolol IV push (htn- currently bp of 180/112) and 4mg ondansetron IV push for n/v per MAR vomitous episode 400 mLs
--- NOTE | 2022-08-13 23:51 | PC.NURSE ---
pt desats to 88% on RA; placed O2 supplementation at 2L NC now at 94% provider aware
[2022-08-14] VITALS (16 sets, daily range): BP systolic 86–187; BP diastolic 50–118; PULSE 63–94; RESP 12–20; TEMP 36.4–37.1; O2SAT 92–99; BMI 34.0
[2022-08-14 01:12] LABS: Troponin-I High Sensitivity 1011.8 ng/L (<3.5-17.0)
[2022-08-14] MEDS: Labetalol HCL 100 MG/20 ML VIAL 20 MG IVPUSH ×4 (01:39→04:16)
--- NOTE | 2022-08-14 01:39 | PC.NURSE ---
admin 20 mg labetolol IV push per MAR
[2022-08-14] MEDS: HYDROmorphone HCl 1 MG/ML SYRINGE IVPUSH ×2 (03:03→08:07)
--- NOTE | 2022-08-14 04:23 | PC.NURSE ---
VSS pt remains hypertensive 20 mg labetolol IV push administered will reassess no apparent distress pt reports no pain at this time
[2022-08-14] MEDS: amLODIPine Besylate 10 MG TABLET PO (05:08)
[2022-08-14] MEDS: carvediloL 12.5 MG TABLET PO (05:09)
[2022-08-14] MEDS: hydrALAZINE HCl 50 MG TABLET PO (05:09)
--- NOTE | 2022-08-14 05:15 | PC.NURSE ---
called nursing supervisor facepiece line, Acacia about meds isorbide dinitrate and nifedipine not available in ED Pyxis, available in [facility] awaiting meds
[2022-08-14] MEDS: NIFEdipine ER 60 MG TAB.ER.24 PO (05:52)
[2022-08-14] MEDS: Heparin Sodium,Porcine 5,000 UNIT/ML VIAL 4000 UNIT IVPUSH (06:15)
--- NOTE | 2022-08-14 07:05 | PC.NURSE ---
N2N report given to KIRIT Loya
[2022-08-14 07:19] LABS: Partial Thromboplastin Time 29.6 SEC (26.0-36.4)
--- NOTE | 2022-08-14 07:24 | MHC.EDTECH ---
Patient refused POC Glucose monitoring. Christy Connell
--- NOTE | 2022-08-14 07:29 | PC.NURSE ---
pt refusing lab draw or poc.
--- NOTE | 2022-08-14 07:29 | MHC.EDTECH ---
Patient has refused blood work as well as Point of Care glucose monitoring. Christy Connell
--- NOTE | 2022-08-14 07:40 | PHA.MEDREC ---
Pharmacy Consult ? Medication Reconciliation Pharmacy has completed the medication reconciliation. Completed by RN reviewed by pharmacy, added prednisone taper larry
[2022-08-14] MEDS: Heparin Sodium,Porcine/1/2NS 25,000 UNIT/250 ML IV.SOLN 10 UNIT IVCONT (08:09)
--- NOTE | 2022-08-14 10:50 | P.HPHOSP_ITS ---
History of Present Illness Date of Service: 08/14/22 Chief Complaint: SOB, weakness, chest tightness A 32 years old lady with PMH of CKD4, sCHF, HTN, DM2 , PAD post transmetatarsal amputation among others who is presenting to the ED with chest pain, SOB and left foot bleeding. reporting nausea and vomiting. denies fever, chills, headache, double vision, change in bowel habit or urinary symptoms. reporting pain is worse with breathing and coughing. EMS brought her to hospital as her sister was concerned about bleeding and odor of LL extremity. she reports oozing blood and odor of the foot as she had amputation previously for the last 2 weeks or so. no drianage noted. In ED found to have elevated BP readings responding to IV Labetalol and hydralazine. Elevated Trop >1000 started on Heparin drip. Admitted for further eval and treatment. Review of Systems Review of Systems: No fever, chills but has weakness reporting chest pain, no palpitation has shortness of breath and coughing No abdominal pain, nausea or vomiting No urinary symptoms No any rash or wounds [facility] Medical History Abnormal finding on echocardiogram Acute dyspnea Acute on chronic systolic and diastolic heart failure, NYHA class 3 Acute worsening of stage 3 chronic kidney disease MYNOR (acute kidney injury) Anemia Anemia in chronic kidney disease (CKD) Asthma Back pain Blind right eye Bone infection Cellulitis Cellulitis and abscess of foot delivery delivered Chest pain CHF (congestive heart failure) (~06/07/22) CKD (chronic kidney disease) CKD (chronic kidney disease) CKD (chronic kidney disease) stage 4, GFR 15-29 ml/min Depression with anxiety Diabetes Diabetic retinopathy DM foot ulcer Elevated troponin Essential hypertension Fever Generalized edema HFrEF (heart failure with reduced ejection fraction) HTN (hypertension) Hypertension (~06/10/22) Metabolic acidosis Migraine Osteomyelitis PAD (peripheral artery disease) Pleural effusion test positive test positive Sepsis Severe anemia Tachycardia Type 2 diabetes mellitus with hyperglycemia, with long-term current use of insulin Family History Mother Coronary artery disease Myocardial infarction Stroke Diabetes mellitus Father Myocardial infarction Surgical History History of transmetatarsal amputation of foot S/P transmetatarsal amputation of foot Social History Household Members: Spouse Household Members Other:: Sister, [id number], nephew Housing: Apartment Do you presently have visiting nurse or other home services: Yes (services) Alcohol intake: never Patient Tobacco Use Status: Tobacco use Unknown Smoked in Last 30 Days: No e-Cigarette/Vaping Use: Never Used Second Hand Smoke Exposure: No Use of substances other than those prescribed or required for medical reasons: No Advance Directives: No Advance Directives Information Provided: No Advance Directives Date on File: 03/08/20 Patient : No service: No Current occupational status: unemployed and disabled Gender identity: Female Meds Allergies Allergy/AdvReac Type Severity Reaction Status Date / Time morphine [MORPHINE] Allergy Intermediate Itching Verified 08/13/22 22:17 azithromycin [From Zithromax] Allergy Hives Verified 08/13/22 22:17 gabapentin Allergy Facial Verified 08/13/22 22:17 Swelling tramadol Allergy Facial Verified 08/13/22 22:17 Swelling vancomycin Allergy Hives Verified 08/13/22 22:17 Active Medications: Current Medications Carvedilol (Carvedilol 12.5 Mg Tablet) 12.5 mg PO BID [facility]; Protocol Docusate Sodium (Docusate Sodium 100 Mg Capsule) 100 mg PO DAILY PRN PRN Reason: constipation Heparin Sodium (Porcine) (Heparin Sodium,Porcine 5,000 Unit/Ml Vial) 3,700 unit 40 unit/kg (3700 unit) IVPUSH PROTOCOL BOLUS PRN; Protocol PRN Reason: 40 unit/kg - Heparin Protocol Heparin Sodium (Porcine) (Heparin Sodium,Porcine 5,000 Unit/Ml Vial) 7,400 unit 80 unit/kg (7400 unit) IVPUSH PROTOCOL BOLUS PRN; Protocol PRN Reason: 80 unit/kg - Heparin Protocol Hydralazine HCl (Hydralazine Hcl 25 Mg Tablet) 75 mg PO TID [facility]; Protocol Heparin Sodium/Sodium Chloride (Heparin Sodium,Porcine/1/2ns) 25,000 unit in 250 mls @ 0 mls/hr IVCONT .Q0M [facility]; Protocol Last Admin: 08/14/22 08:09 Dose: 10.79 units/kg/hr, 10 mls/hr Nifedipine (Nifedipine Er 60 Mg Tab.Er.24) 60 mg PO DAILY [facility]; Protocol Oxycodone HCl (Oxycodone Hcl Immed Release 5 Mg Tablet) 5 mg PO Q6H PRN PRN Reason: severe pain Torsemide (Torsemide 20 Mg Tablet) 40 mg PO BID [facility]; Protocol Last Admin: 08/14/22 09:49 Dose: Not Given Home Medications Medication Instructions Recorded Confirmed Last Taken Type carvedilol 12.5 mg tablet 12.5 mg PO BID 08/13/22 08/13/22 Unknown History docusate sodium 100 mg capsule 100 mg PO DAILY PRN constipation 08/13/22 08/13/22 Unknown History ferrous fumarate 324 mg (106 mg 324 mg PO DAILY 08/13/22 08/13/22 Unknown History iron) tablet (Ferrocite) hydralazine 25 mg tablet 75 mg PO TID 08/13/22 08/13/22 Unknown History nifedipine 60 mg tablet,extended 60 mg PO DAILY 08/13/22 08/13/22 Unknown History release 24 hr oxycodone 5 mg tablet 5 mg PO Q6H PRN severe pain 08/13/22 08/13/22 Unknown History prednisone 10 mg tablet See Taper PO 1XD 08/13/22 08/13/22 Unknown History torsemide 20 mg tablet 40 mg PO BID 08/13/22 08/13/22 Unknown History Physical Exam Vital Signs and Narrative: Vital Signs: Last Vital Signs Temp 97.7 F 08/14/22 07:15 Pulse 78 08/14/22 07:15 Resp 12 08/14/22 08:07 BP 115/64 08/14/22 07:15 Pulse Ox 98 08/14/22 07:15 O2 Del Method Nasal Cannula 08/14/22 07:15 O2 Flow Rate 2 08/14/22 07:15 BMI result Body Mass Index 34.0 Const: Other: Constitutional : Awake, interactive, restless Neck : Normal inspection, Supple Cardiovascular : RRR, no JVP, +1 lower extremity edema Respiratory : fair bilateral air entry, basal fine crackles, wheezes or rhonchi Gastrointestinal: soft, lax, Normal bowel sounds, Non tender Skin : Warm, Dry Neurological : Alert & oriented x3, No focal deficit Results Labs 08/13/22 21:10 08/13/22 21:10 Labs: Laboratory Results - last 24 hr 08/13/22 08/13/22 08/13/22 21:10 21:10 21:10 MCV 90.2 MCH 27.1 MCHC 30.0 L RDW 22.5 H Plt Count 132 L MPV 11.1 Immature Gran % (Auto) 0.3 Neut % (Auto) 78.7 H Lymph % (Auto) 13.2 L [place] % (Auto) 4.8 Eos % (Auto) 2.5 Baso % (Auto) 0.5 Lymph # (Auto) 0.5 L [place] # (Auto) 0.2 Eos # (Auto) 0.1 Baso # (Auto) 0.0 Abs Immat Gran (auto) 0.01 Absolute Neuts (auto) 3.1 Absolute Nucleated RBC 0.000 Nucleated RBC % (auto) 0.0 PT 14.4 H INR 1.2 H APTT Anion Gap 12 Estim Creat Clear Calc 25.1 Estimated GFR 15 Random Glucose 180 H Lactic Acid Calcium 8.4 D Total Bilirubin 1.8 H Direct Bilirubin 0.6 H AST 18 ALT 23 Alkaline Phosphatase 99 Troponin I High Sens Total Protein 6.8 Albumin 2.7 L Lipase 48 08/13/22 08/13/22 08/14/22 21:10 21:11 00:39 MCV MCH MCHC RDW Plt Count MPV Immature Gran % (Auto) Neut % (Auto) Lymph % (Auto) [place] % (Auto) Eos % (Auto) Baso % (Auto) Lymph # (Auto) [place] # (Auto) Eos # (Auto) Baso # (Auto) Abs Immat Gran (auto) Absolute Neuts (auto) Absolute Nucleated RBC Nucleated RBC % (auto) PT INR APTT Anion Gap Estim Creat Clear Calc Estimated GFR Random Glucose Lactic Acid 1.1 Calcium Total Bilirubin Direct Bilirubin AST ALT Alkaline Phosphatase Troponin I High Sens 1209.8 H* D 1011.8 H* Total Protein Albumin Lipase 08/14/22 06:34 MCV MCH MCHC RDW Plt Count MPV Immature Gran % (Auto) Neut % (Auto) Lymph % (Auto) [place] % (Auto) Eos % (Auto) Baso % (Auto) Lymph # (Auto) [place] # (Auto) Eos # (Auto) Baso # (Auto) Abs Immat Gran (auto) Absolute Neuts (auto) Absolute Nucleated RBC Nucleated RBC % (auto) PT INR APTT 29.6 Anion Gap Estim Creat Clear Calc Estimated GFR Random Glucose Lactic Acid Calcium Total Bilirubin Direct Bilirubin AST ALT Alkaline Phosphatase Troponin I High Sens Total Protein Albumin Lipase Imaging Radiologist's Impressions: Impressions Chest X-Ray 08/13/22 21:32 IMPRESSION: Changes of mild bronchitis. No infiltrate. Assessment and Plan (1) Hypertensive crisis: Status: Acute (2) Pleuritic chest pain: Status: Acute (3) NSTEMI (non-ST elevated myocardial infarction): Status: Acute (4) Vomiting: Qualifiers: Nausea presence: with nausea Status: Acute Plan A 32 years old lady with PMH of CKD4, sCHF, HTN, DM2 , PAD post transmetatarsal amputation among others who is presenting to the ED with chest pain, SOB and left foot bleeding. NSTEMI Elevated Trop I, chest pain No EKG changes to suggest ACS Heparin drip ASA, Statin Cardiology consult ECHO Hypertensive crisis responded to IV and PO meds Continue home BP meds monitor BP closely CKD 4 stable, monitor nephrology to follow Hx recent Pericarditis continue Prednisone DVT PPx Heparin drip The patient will need 2 overnight hospital stay for NSTEMI treatment and BP control Time Spent With Patient Time: Total time managing care of this patient today ____ minutes. Quality Stroke Does the patient have a stroke diagnosis?: No VTE Prior VTE?: No VTE Risk Level:: Medical - low VTE Device Contraindication: Treatment Not Indicated VTE Drug Contraindication: N/A - Med Ordered
[2022-08-14] MEDS: Furosemide 40 MG/4 ML VIAL IVPUSH (11:33)
[2022-08-14 12:01] LABS: Estimated Average Glucose 151 mg/dL; Hemoglobin A1c % 6.9 %
--- NOTE | 2022-08-14 13:58 | PC.NURSE ---
pt continues to refuse labs
--- NOTE | 2022-08-14 15:08 | PC.NURSE ---
discussing with pharmacy and awaiting md about continuation of heparin drip. pt continues to refuse lab draws.
--- NOTE | 2022-08-14 15:17 | PC.NURSE ---
md aware of lab draw- verbal order to hold heparin drip at this time. md also made aware of pt being hypotensive in [id number] systolic. states he will come to see pt.
[2022-08-14] MEDS: 0.9 % Sodium Chloride 1,000 ML 999 ML IV (15:37)
--- NOTE | 2022-08-14 15:37 | PC.NURSE ---
1L NS hung per md verbal order at bedside. Verbal order to dc heparin completely and switch to subcut injection order to follow.
--- NOTE | 2022-08-14 15:47 | PC.NURSE ---
to hold IV evetteix
--- NOTE | 2022-08-14 16:19 | PC.NURSE ---
pt educated on lovenox injection- refusing to answer this rn if she is willing to receive medication. medication not administered. md aware.
--- NOTE | 2022-08-14 16:36 | PM.CNCAR ---
History of Present Illness History of Present Illness Date of Service: 08/14/22 Chief complaint: NSTEMI Narrative: This is a cardiology consultation regarding elevated troponins. Patient has multiple medical comorbidities, primarily uncontrolled hypertension and chronic kidney disease. She does get frequently hospitalized because of hypertension issues. This is mainly because of her not taking medications. Current admission is because of some bleeding in the left foot. In the H and P, there is mention of chest pain and shortness of breath. I repeatedly questioned her about this but she states she does not have any chest pain at all. The only reason she came was because of bleeding in her foot. In this context, again found to have elevated blood pressures, got IV blood pressure medication including labetalol/hydralazine. Then troponins were checked and they were found to be high. Then started on heparin drip. Now she seems to be resting quite comfortably. Does not have any chest pain or in fact any cardiac symptoms. Review of Systems Review of Systems: Yes all other systems are reviewed and are negative Constitutional: Constitutional: Reports as per HPI and Reports no additional constitutional complaints Eyes: Eyes: Reports as per HPI and Denies no additional eye complaints ENT: Denies system reviewed and no additional complaints, except as documented and Reports as per HPI Cardiovascular: Cardiovascular: Reports as per HPI, Reports no additional cardiovascular complaints, Denies acrocyanosis, Denies cool extremities, Denies chest pain, Denies leg edema, Denies lightheadedness, Denies palpitations and Denies dyspnea Respiratory: Respiratory: Reports as per HPI, Denies no additional respiratory complaints and Denies dyspnea Gastrointestinal: Gastrointestinal: Reports as per HPI and Denies no additional gastrointestinal complaints Genitourinary: Genitourinary: Reports as per HPI Musculoskeletal: Musculoskeletal: Reports no additional musculoskeletal complaints and Reports as per HPI Integumentary/Breasts: Skin/Breast: Reports system reviewed and no additional complaints, except as docu Neurologic: Reports system reviewed and no additional complaints, except as documented and Reports as per HPI Psychiatric: Psychiatric: Reports no additional psychiatric complaints and Reports as per HPI Endocrine: Endocrine: Reports no additional endocrine complaints, Reports as per HPI and Denies palpitations Hematologic/Lymphatic: Hematologic/Lymphatic: Reports no additional hematologic/lymphatic complaints and Reports as per HPI Allergic/Immunologic: Allergic/Immunologic: Reports no additional allergic/immunologic complaints and Reports as per HPI [facility] Past Medical History Medical History Abnormal finding on echocardiogram Acute dyspnea Acute on chronic systolic and diastolic heart failure, NYHA class 3 Acute worsening of stage 3 chronic kidney disease MYNOR (acute kidney injury) Anemia Anemia in chronic kidney disease (CKD) Asthma Back pain Blind right eye Bone infection Cellulitis Cellulitis and abscess of foot delivery delivered Chest pain CHF (congestive heart failure) (~06/07/22) CKD (chronic kidney disease) CKD (chronic kidney disease) CKD (chronic kidney disease) stage 4, GFR 15-29 ml/min Depression with anxiety Diabetes Diabetic retinopathy DM foot ulcer Elevated troponin Essential hypertension Fever Generalized edema HFrEF (heart failure with reduced ejection fraction) HTN (hypertension) Hypertension (~06/10/22) Metabolic acidosis Migraine Osteomyelitis PAD (peripheral artery disease) Pleural effusion test positive test positive Sepsis Severe anemia Tachycardia Type 2 diabetes mellitus with hyperglycemia, with long-term current use of insulin Family History Family History Mother Coronary artery disease Myocardial infarction Stroke Diabetes mellitus Father Myocardial infarction Surgical History Surgical History History of transmetatarsal amputation of foot S/P transmetatarsal amputation of foot Social History Social History Household Members: Spouse Household Members Other:: Sister, [id number], nephew Housing: Apartment Do you presently have visiting nurse or other home services: Yes (services) Alcohol intake: never Patient Tobacco Use Status: Tobacco use Unknown Smoked in Last 30 Days: No e-Cigarette/Vaping Use: Never Used Second Hand Smoke Exposure: No Use of substances other than those prescribed or required for medical reasons: No Advance Directives: No Advance Directives Information Provided: No Advance Directives Date on File: 03/08/20 Patient : No service: No Current occupational status: unemployed and disabled Gender identity: Female Meds Allergies Allergy/AdvReac Type Severity Reaction Status Date / Time morphine [MORPHINE] Allergy Intermediate Itching Verified 08/13/22 22:17 azithromycin [From Zithromax] Allergy Hives Verified 08/13/22 22:17 gabapentin Allergy Facial Verified 08/13/22 22:17 Swelling tramadol Allergy Facial Verified 08/13/22 22:17 Swelling vancomycin Allergy Hives Verified 08/13/22 22:17 Active Medications: Current Medications Acetaminophen (Acetaminophen 325 Mg Tablet) 650 mg PO Q6H PRN PRN Reason: Pain, Mild (Pain Scale 1-3) Aspirin (Aspirin Enteric Coated 81 Mg Tablet.) 81 mg PO DAILY [facility] Atorvastatin Calcium (Atorvastatin Calcium 40 Mg Tablet) 40 mg PO BEDTIME [facility] Carvedilol (Carvedilol 12.5 Mg Tablet) 12.5 mg PO BID [facility]; Protocol Docusate Sodium (Docusate Sodium 100 Mg Capsule) 100 mg PO DAILY PRN PRN Reason: constipation Enoxaparin Sodium (Enoxaparin Sodium 100 Mg/Ml Syringe) 90 mg 1 mg/kg (90 mg) SUBCUT Q24H [facility] Last Admin: 08/14/22 16:14 Dose: Not Given Furosemide (Furosemide 40 Mg/4 Ml Vial) 40 mg IVPUSH DAILY [facility]; Protocol Hydralazine HCl (Hydralazine Hcl 25 Mg Tablet) 75 mg PO TID [facility]; Protocol Last Admin: 08/14/22 15:16 Dose: Not Given Sodium Chloride (Ns) 1,000 mls @ 999 mls/hr IV .Q1H1M [facility] Stop: 08/14/22 16:45 Last Infusion: 08/14/22 16:35 Dose: Infused Insulin Human Lispro (Insulin Lispro 100 Unit/Ml 3 Ml Vial) 0 unit SUBCUT QIDACHS [facility]; Protocol Last Admin: 08/14/22 15:16 Dose: Not Given Nifedipine (Nifedipine Er 60 Mg Tab.Er.24) 60 mg PO DAILY [facility]; Protocol Omeprazole (Omeprazole 40 Mg Capsule.) 40 mg PO DAILY@0630 [facility] Last Admin: 08/14/22 11:30 Dose: Not Given Ondansetron HCl (Ondansetron Hcl 4 Mg/2 Ml Vial) 4 mg IVPUSH Q8H PRN PRN Reason: Nausea and Vomiting Oxycodone HCl (Oxycodone Hcl Immed Release 5 Mg Tablet) 5 mg PO Q6H PRN PRN Reason: severe pain Prednisone (Prednisone 10 Mg Tablet) 40 mg PO DAILY [facility]; Taper Stop: 09/18/22 11:14 Last Admin: 08/14/22 11:30 Dose: Not Given Sodium Chloride (0.9 % Sodium Chloride Flush 3 Ml Syringe) 3 ml IVFLUSH QSHIFT [facility] Last Admin: 08/14/22 15:39 Dose: Not Given Home Medications Medication Instructions Recorded Confirmed Last Taken Type carvedilol 12.5 mg tablet 12.5 mg PO BID 08/13/22 08/13/22 Unknown History docusate sodium 100 mg capsule 100 mg PO DAILY PRN constipation 08/13/22 08/13/22 Unknown History ferrous fumarate 324 mg (106 mg 324 mg PO DAILY 08/13/22 08/13/22 Unknown History iron) tablet (Ferrocite) hydralazine 25 mg tablet 75 mg PO TID 08/13/22 08/13/22 Unknown History nifedipine 60 mg tablet,extended 60 mg PO DAILY 08/13/22 08/13/22 Unknown History release 24 hr oxycodone 5 mg tablet 5 mg PO Q6H PRN severe pain 08/13/22 08/13/22 Unknown History prednisone 10 mg tablet See Taper PO 1XD 08/13/22 08/13/22 Unknown History torsemide 20 mg tablet 40 mg PO BID 08/13/22 08/13/22 Unknown History Physical Exam Vital Signs: Vital Signs: Last Vital Signs Temp 97.7 F 08/14/22 07:15 Pulse 69 08/14/22 12:34 Resp 12 08/14/22 12:34 BP 86/50 L 08/14/22 15:27 Pulse Ox 92 08/14/22 12:34 O2 Del Method Nasal Cannula 08/14/22 12:34 O2 Flow Rate 2 08/14/22 12:34 BMI result Body Mass Index 34.0 Const: General: comfortable and no acute distress Orientation/consciousness: patient oriented x3 HEENT: Other: Unremarkable Head: Yes normal to inspection Neck: Neck: Yes normal visual inspection Chest: Chest palpation & inspection: normal inspection of the chest Resp: Auscultation: clear to auscultation bilaterally Cardio: Palpation: normal PMI Heart sounds: S1 normal heart sound present, S2 normal heart sound present, no gallops, no murmurs and no rubs GI: Palpation (GI): Soft to palpation Back/Spine/Pelvis: Other: unremarkable Skin: General skin exam: no rashes or lesions noted Neuro: General: patient oriented x3 Extrem: General: Yes normal to inspection Psych: Mental Status: mental status grossly normal Objective Labs and Meds 08/13/22 21:10 08/13/22 21:10 Lab results: Laboratory Results - last 24 hr 08/13/22 08/13/22 08/13/22 21:10 21:10 21:10 WBC 4.0 L RBC 3.36 L Hgb 9.1 L Hct 30.3 L MCV 90.2 MCH 27.1 MCHC 30.0 L RDW 22.5 H Plt Count 132 L MPV 11.1 Immature Gran % (Auto) 0.3 Neut % (Auto) 78.7 H Lymph % (Auto) 13.2 L Cowley % (Auto) 4.8 Eos % (Auto) 2.5 Baso % (Auto) 0.5 Lymph # (Auto) 0.5 L Cowley # (Auto) 0.2 Eos # (Auto) 0.1 Baso # (Auto) 0.0 Abs Immat Gran (auto) 0.01 Absolute Neuts (auto) 3.1 Absolute Nucleated RBC 0.000 Nucleated RBC % (auto) 0.0 PT 14.4 H INR 1.2 H APTT Sodium 139 Potassium 4.5 Chloride 114 H Carbon Dioxide 18 L Anion Gap 12 BUN 41 H Creatinine 3.56 H Estim Creat Clear Calc 25.1 Estimated GFR 15 Random Glucose 180 H Estimat Average Glucose Hemoglobin A1c % Lactic Acid Calcium 8.4 D Total Bilirubin 1.8 H Direct Bilirubin 0.6 H AST 18 ALT 23 Alkaline Phosphatase 99 Troponin I High Sens Total Protein 6.8 Albumin 2.7 L Lipase 48 08/13/22 08/13/22 08/13/22 21:10 21:10 21:11 WBC RBC Hgb Hct MCV MCH MCHC RDW Plt Count MPV Immature Gran % (Auto) Neut % (Auto) Lymph % (Auto) Cowley % (Auto) Eos % (Auto) Baso % (Auto) Lymph # (Auto) Cowley # (Auto) Eos # (Auto) Baso # (Auto) Abs Immat Gran (auto) Absolute Neuts (auto) Absolute Nucleated RBC Nucleated RBC % (auto) PT INR APTT Sodium Potassium Chloride Carbon Dioxide Anion Gap BUN Creatinine Estim Creat Clear Calc Estimated GFR Random Glucose Estimat Average Glucose 151 Hemoglobin A1c % 6.9 Lactic Acid 1.1 Calcium Total Bilirubin Direct Bilirubin AST ALT Alkaline Phosphatase Troponin I High Sens 1209.8 H* D Total Protein Albumin Lipase 08/14/22 08/14/22 00:39 06:34 WBC RBC Hgb Hct MCV MCH MCHC RDW Plt Count MPV Immature Gran % (Auto) Neut % (Auto) Lymph % (Auto) Cowley % (Auto) Eos % (Auto) Baso % (Auto) Lymph # (Auto) Cowley # (Auto) Eos # (Auto) Baso # (Auto) Abs Immat Gran (auto) Absolute Neuts (auto) Absolute Nucleated RBC Nucleated RBC % (auto) PT INR APTT 29.6 Sodium Potassium Chloride Carbon Dioxide Anion Gap BUN Creatinine Estim Creat Clear Calc Estimated GFR Random Glucose Estimat Average Glucose Hemoglobin A1c % Lactic Acid Calcium Total Bilirubin Direct Bilirubin AST ALT Alkaline Phosphatase Troponin I High Sens 1011.8 H* Total Protein Albumin Lipase ECG Interpretation: EKG with sinus tachycardia at 01:09/Min; right bundle-branch block pattern. Nonspecific ST-T changes. Imaging Radiologist's impression: Impressions Chest X-Ray 08/13/22 21:32 IMPRESSION: Changes of mild bronchitis. No infiltrate. Assessment and Plan (1) NSTEMI (non-ST elevated myocardial infarction): Status: Acute (2) Hypertensive emergency: Status: Resolved (3) Cardiomyopathy: Status: Acute Plan In the recent echocardiogram, LVEF 25-30%. Grade 2 diastolic dysfunction. Basal inferior akinesis. Severe biatrial enlargement. Mild mitral and tricuspid regurgitation. Pulmonary hypertension. Small circumferential pericardial effusion. Creatinine 3.56. BUN is 41. High sensitivity troponin peaked at 1209. Now 1011. These are much higher than previous values. High troponin likely from demand related to uncontrolled hypertension. In fact, blood pressure was as much as 230/136 mm Hg yesterday. Currently much lower and that could be a consequence of getting IV antihypertensives. If she is willing, IV heparin drip. It seems she is resting that. Otherwise, blood pressure seems to be optimized in conjunction with Nephrology input. Due to noncompliance, not a good candidate for ischemia workup. Discussed with Dr. Sears. Time Spent With Patient Time: Total time managing care of this patient today ____ minutes. Procedures Date of Service Date of Service: 08/14/22
--- NOTE | 2022-08-14 16:44 | MHC.EDTECH ---
this pct attempted to check patients POC but patient refused RN aware
--- NOTE | 2022-08-14 17:18 | MHC.EDTECH ---
this tech answered call moore to pt stating she is experiencing vision changes. pt can no longer see in left eye, stating I can only see black . rn aware, poc of 157 and vitals documented with BP 94/58. pt is nonreactive to light nor moving finger/hand
[2022-08-14 17:20] LABS: Glucose, Whole Blood 157 mg/dL (60-115)
--- NOTE | 2022-08-14 17:29 | PC.NURSE ---
1710 kayla ochoa contacted md- pt woke from sleeping stating she could no longer see out of left eye. pupil non reactive to light. poc 157. attending did not answer, additional hospitalist contacted and aware of patient. awaiting md arrival to evaluate patient.
--- NOTE | 2022-08-14 17:40 | PC.NURSE ---
md le and md crum at bedside for eval. checking eye for FB, pressure and US at bedside as well.
[2022-08-14] MEDS: Fluorescein Sodium STRIP 1 STRIP EYE-BOTH (17:42)
[2022-08-14] MEDS: Tetracaine HCl/PF 0.5% Oph Sol 4 ML DROPS 1 DROP EYE-LEFT (17:42)
--- NOTE | 2022-08-14 17:44 | PC.NURSE ---
pressure in left eye 13
--- NOTE | 2022-08-14 17:51 | PC.NURSE ---
pt reports some shadows in left eye
[2022-08-14] MEDS: 0.9 % Sodium Chloride 1,000 ML 100 ML IVCONT (18:18)
--- NOTE | 2022-08-14 18:22 | PM.EVENT ---
Event Note Date of Service: 08/14/22 Event Note: Staff called for loss of vision: patient said she was sleepong when woke up could not see. Spoke to patient's sister in detail length-patient is noncompliant , has diabetic retinopathy at baseline and also uncontrolled blood pressure. As per sister she says that she barely sees shadows versus very little vision which is questionable?( says can identify face if goes very near to left eye ) denies any pain or burning in eye ,no headaches Patient seen and examined- Physical exam an unchanged Eye exam: Slit-lamp exam negative for corneal abrasion on lesion. Also checke dye pressure normal(13) pupil recative eye us-retina seems groslly fine( please see below) otherwise neuro nonfocal At the end of the eye exam patient says that she is seeing some shadows now Above was discussed with Ophthalmology Dr. Damon: Recommended to continue current care for NSTEMI. ? Unclear patient's baseline lesion but patient has history of retinopathy some most likely has severe retinopathy and she is noncompliant-currently recommended to have adequate control blood pressure and and blood sugars. Bp boderline -added ns -hold bp meds. ophthalomology recomended to continue current management for nstemi. no need for transfer right now also recomended -consider laser or avastin with opthalmology when improves, Will also add CT head and orbital. moniter patient clinically ,rexamine as needed,night staff aware please call opthalology if needed Time Spent With Patient Time: Total time managing care of this patient today ____ minutes.
--- NOTE | 2022-08-14 19:14 | PC.NURSE ---
Assumed care of pt. Pt remains non-compliant with care including oral medications, IM medictions and other required therapies. Pt allowed to sit for 2 minutes on edge of bed with this RN nd tech present for safety. Pt requeste to lay back down after becoming dizzy. pt refusing to verbalize reasons for care refusal. MD aware. VS as charted, IVF running, no further issues at this time, YURI
--- NOTE | 2022-08-14 19:59 | PC.NURSE ---
Pt sister, HCP, contacted this RN and stated that she spoke with the patient concerning her diagnoses, and stated pt will now comply with ordered medications. Plan to speak with pt regarding further treatments as ordered.
--- NOTE | 2022-08-14 20:15 | MHC.CM.PN ---
Addendum entered by Shani Hsu 08/14/22 20:44: SisterJosy present at bedside. New address obtained. Josy aware that her sister is not cooperative with CM interview or plan of care. RN currently speaking with Josy. Original Note: IMM 08/14. A&Ox4. Pt non-compliant with CM assessment and will only answer minimal questions. Pt not complaint with treatment plan in ED, despite NSTEMI and hypertensive crisis. Refusing meds. Pt tells CM she lives with her sister, but cannot remember the address. States the address listed on face sheet is not correct. CM will call Josy to verify address. Denies using DME, but then states she has a wheelchair. 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 [employer] x2. HCP on file. Pt refuses to participate in THRIVE interview. Pt may be agreeable to VNA at discharge if needed. New transmetatarsal amputation 2 weeks ago. D/C plan: Home ? VNA. No referrals placed, as patient is very non-complaint and CM is unsure what patient will agree to at discharge. Family will transport home. CM will follow for discharge needs.
--- NOTE | 2022-08-14 20:37 | MHC.CM.PN ---
08/14 IMM. Met with admitted patient with bed assignment pending. Pt with extensive medical hx. Hx non-compliance. A&Ox4. Admitted with NSTEMI and hypertensive crisis. Refusing all care at present. Pt barley participating in CM interview. Lives w sister, Josy, but cannot remember her address. States she has no DME or services, but then states she has a wheelchair and her sister, Josy is her SURFACER, 34 hours/wk. HCP on file. Michael, brother, is her HCP ([phone]). Pt may need VNA at discharge, but no referrals made, as CM unsure if patient will accept services. Pt has refused to participate in the THRIVE assessment at this time. CM will follow for discharge planning.
--- NOTE | 2022-08-14 20:42 | MHC.CM.PN ---
IMM 08/14.
--- NOTE | 2022-08-14 22:16 | PC.NURSE ---
At this time, pt verbalized agreement with injection of anticoagulation therapy. Notified MD Sewell for order change.
[2022-08-14 22:18] LABS: Glucose, Whole Blood 160 mg/dL (60-115)
[2022-08-14] MEDS: Enoxaparin Sodium 100 MG/ML SYRINGE 90 MG SUBCUT (22:21)
--- NOTE | 2022-08-14 23:21 | MHC.EDTECH ---
THIS PCT ASSUMED CARE OF PATIENT AT 2300 ,VITALS SIGN TAKEN ,PT IS VERY UPSET AND CRYING ,RN JACE AWARE ,WARM BLANKET GIVEN .
[2022-08-15] VITALS (13 sets, daily range): BP systolic 101–167; BP diastolic 65–105; PULSE 78–93; RESP 13–20; TEMP 35.9–36.8; O2SAT 95–98; BMI 33.5
--- NOTE | 2022-08-15 03:21 | PC.NURSE ---
Pt sleeping, easily rousable, no acute concerns at this time. wctm
[2022-08-15] MEDS: 0.9 % Sodium Chloride 1,000 ML 100 ML IVCONT (03:44)
--- NOTE | 2022-08-15 05:11 | PC.NURSE ---
On awakening this am, pt agreeable with lab draws by phlebotomy. Requested to use commode, assisted with no complications. Returned to stretcher, bedding changed for comfort. MD Sewell notified.
[2022-08-15 05:24] LABS: Hematocrit 26.8 % (37.0-47.0); Mean Corpuscular HGB Conc 29.9 g/dl (31.0-35.0); Mean Corpuscular Hemoglobin 26.9 pg (27.0-33.0); Mean Corpuscular Volume 90.2 fL (80.0-98.0); NRBC Pct Auto 0.7 /100WBC (0.0-0.2); Platelet Count 102 X10*3/uL (160-400); Red Blood Count 2.97 X10*6/uL (4.20-5.50); Red Cell Distribution Width 22.5 % (11.0-16.0); White Blood Count 2.8 X10*3/uL (4.8-10.8)
[2022-08-15 05:32] LABS: INTERNATIONAL NORM RATIO 1.3 (0.9-1.1); Prothrombin Time 14.8 SEC (10.0-13.1)
[2022-08-15 05:35] LABS: Partial Thromboplastin Time 34.2 SEC (26.0-36.4)
[2022-08-15 05:37] LABS: Anion Gap 13 (12-20); Blood Urea Nitrogen 40 mg/dL (9-16); Calcium 8.3 mg/dL (8.4-10.2); Carbon Dioxide 16 mmol/L (22-29); Chloride 114 mmol/L (96-108); Creatinine Clr Calc Pharmacy 23.5; Estimated Glomerular Filt Rate 14; Glucose Random 105 mg/dL (60-115); Potassium 5.2 mmol/L (3.3-5.1); Sodium 138 mmol/L (135-145)
[2022-08-15 06:51] LABS: Glucose, Whole Blood 92 mg/dL (60-115)
--- NOTE | 2022-08-15 07:00 | CA_ITS ---
Transthoracic Echocardiogram Patient (Last, First, Middle): Shereen Taylor, Gender: Female Date of : 1990 Age: 32 Procedure Date: 08/15/2022 Procedure Type: Transthoracic Echocardiogram Location: ER Height: 165.1 cm Weight: 92.53 kg BSA: 1.99 m2 Heart Rate: 87 bpm BP: 114 / 97 mmHg Reliability Specialist: CLEMENTINA Dash MD: Cheyenne Sears MD Symptoms: NSTEMI Study Quality: Adequate/Contrast/Limited Echo ECG Rhythm: Sinus Conclusions: - The left ventricular systolic function is moderately decreased. The visually estimated ejection fraction is between 30-35%. - The basal inferior and mid inferior segments are akinetic. - Small to moderate circumferential pericardial effusion. Findings Procedure Information Contrast agent, definity, is being given per protocol without apparent complications. Left Ventricle Normal left ventricular cavity size. There is moderately increased left ventricular wall thickness. The left ventricular systolic function is moderately decreased. The visually estimated ejection fraction is between 30 35%. There is moderate global hypokinesis. Wall Motion Rest Echo Findings The basal inferior and mid inferior segments are akinetic. Tricuspid Valve There is mild to moderate tricuspid valve regurgitation. Venous The inferior vena cava is normal in size and collapses less than 50% with inspiration. Pericardium/Pleural There are no definitive echocardiographic findings of tamponade physiology. Small to moderate circumferential pericardial effusion. Prior Study Comparison No significant change compared to prior study dated: 07/20/2022. Measurements 2D Linear Measurements IVSd: 1.21 0.6-0.9/0.6-1.0 cm LVIDd: 4.92 3.9-5.3/4.2-5.9 cm LVIDd Index: 2.47 2.4-3.2/2.2-3.1 cm/m2 LVIDs: 3.80 2.0-3.6 cm LVPWd: 1.45 0.7-1.1 cm LA Diam: 4.90 2.7-3.8/3.0-4.0 cm LAIDs Index: 2.46 1.5-2.3 cm/m2 LV Mass: 329.08 67-162/88-224 g LV Mass Index: 165.37 43-95/49-115 g/m2 LVOT Diam: 2.20 3.0+(-)1.3 cm 2D Systolic Function EF 4C: 39.90 >55% EF 2C: 39.00 >55% EF BiP: 38.80 >55% LVOT LVOT Pk Pietro: 0.99 LVOT Mn Pietro: 0.68 LVOT VTI: 0.17 LVOT Pk Grad: 4.00 LVOT Mn Grad: 2.00 LVOT Diam: 2.20 LVOT Area: 3.80 Tricuspid Valve TR Pk Pietro: 2.82 TR Pk Grad: 32.00 RA Press: 15.00 RVSP: 47.00 Updated in Other Vendor System with Status of Final Brandyn Bhardwaj MD electronically signed on 08/15/2022 4:13:46 PM with status of Final
--- NOTE | 2022-08-15 07:39 | MHC.EDTECH ---
Pt ate 75% of breakfast, fresh water given. Repositioned on left side, warm blanket given, call moore within reach and resting quietly.
[2022-08-15] MEDS: predniSONE 10 MG TABLET 40 MG PO (08:24)
[2022-08-15] MEDS: Sodium Zirconium Cyclosilicate 10 GM POWD.PACK PO (08:24)
[2022-08-15] MEDS: Sodium Bicarbonate 650 MG TABLET 1300 MG PO (08:24)
[2022-08-15] MEDS: Aspirin Enteric Coated 81 MG TABLET.DR PO (08:24)
[2022-08-15] MEDS: Furosemide 40 MG/4 ML VIAL IVPUSH (08:25)
--- NOTE | 2022-08-15 08:25 | PC.NURSE ---
pt a&ox3. pts lung sounds clear bilaterally. Heart sounds regular. Hyperactive bowel sounds in all 4 quads. this rn noted left lower leg palpitated, tender and felt swollen and hard. when assessing left foot, 3 toes noted. the great toe and fifth toe are amputated. three open wounds stage 2 noted. cleanse with NS followed by xeroform, telfa and wrapped with gauge. all toes on the right foot has been amputated. area is closed, clean, warm and dry. pt states generalized body pain 10/10. pt refused PO pain meds. Pt was given lasix. BP before administration 114/97. pt aware of plan of care.
[2022-08-15] MEDS: 0.9 % Sodium Chloride Flush 3 ML SYRINGE IVFLUSH ×2 (08:26→20:11)
[2022-08-15] MEDS: ondansetron HCL 4 MG/2 ML VIAL IVPUSH (09:20)
--- NOTE | 2022-08-15 09:31 | P.CONNP_ITS ---
History of Present Illness Reason for Consult Consult date: 08/14/22 Chief Complaint Chief complaint: NSTEMI History of Present Illness Narrative: 32 years old lady with CKD4 among others who presented to the ED with chest pain, SOB and left foot bleeding. She reported nausea and vomiting but denies fever, chills or urinary symptoms. EMS brought her to hospital as her sister was concerned about bleeding and odor of LL extremity. She reported oozing blood and malodor of the foot.In ED found to have elevated BP readings responding to IV Labetalol and hydralazine. Elevated Trop >1000 started on Heparin drip. She also had MYNOR at that time. She was admitted for further evaluation and treatment. Nephrology has been consulted to assist in her clinical care during her current hospital stay. Review of Systems Review of Systems Yes all other systems are reviewed and are negative PMFSH Past Medical History Medical History Abnormal finding on echocardiogram Acute dyspnea Acute on chronic systolic and diastolic heart failure, NYHA class 3 Acute worsening of stage 3 chronic kidney disease MYNOR (acute kidney injury) Anemia Anemia in chronic kidney disease (CKD) Asthma Back pain Blind right eye Bone infection Cellulitis Cellulitis and abscess of foot delivery delivered Chest pain CHF (congestive heart failure) (~06/07/22) CKD (chronic kidney disease) CKD (chronic kidney disease) CKD (chronic kidney disease) stage 4, GFR 15-29 ml/min Depression with anxiety Diabetes Diabetic retinopathy DM foot ulcer Elevated troponin Essential hypertension Fever Generalized edema HFrEF (heart failure with reduced ejection fraction) HTN (hypertension) Hypertension (~06/10/22) Metabolic acidosis Migraine Osteomyelitis PAD (peripheral artery disease) Pleural effusion test positive test positive Sepsis Severe anemia Tachycardia Type 2 diabetes mellitus with hyperglycemia, with long-term current use of insu viktoria Family History Family History Mother Coronary artery disease Myocardial infarction Stroke Diabetes mellitus Father Myocardial infarction Surgical History Surgical History History of transmetatarsal amputation of foot S/P transmetatarsal amputation of foot Social History Social History Household Members: Spouse Household Members Other:: Sister, [id number], nephew Housing: Apartment Do you presently have visiting nurse or other home services: Yes (services) Alcohol intake: never Patient Tobacco Use Status: Tobacco use Unknown Smoked in Last 30 Days: No e-Cigarette/Vaping Use: Never Used Second Hand Smoke Exposure: No Use of substances other than those prescribed or required for medical reasons: No Advance Directives: No Advance Directives Information Provided: No Advance Directives Date on File: 03/08/20 Patient : No service: No Current occupational status: unemployed and disabled Gender identity: Female Meds Allergies Allergy/AdvReac Type Severity Reaction Status Date / Time morphine [MORPHINE] Allergy Intermediate Itching Verified 08/13/22 22:17 azithromycin [From Zithromax] Allergy Hives Verified 08/13/22 22:17 gabapentin Allergy Facial Verified 08/13/22 22:17 Swelling tramadol Allergy Facial Verified 08/13/22 22:17 Swelling vancomycin Allergy Hives Verified 08/13/22 22:17 Active Medications: Current Medications Acetaminophen (Acetaminophen 325 Mg Tablet) 650 mg PO Q6H PRN PRN Reason: Pain, Mild (Pain Scale 1-3) Aspirin (Aspirin Enteric Coated 81 Mg Tablet.Dr) 81 mg PO DAILY [facility] Last Admin: 08/15/22 08:24 Dose: 81 mg Atorvastatin Calcium (Atorvastatin Calcium 40 Mg Tablet) 40 mg PO BEDTIME [facility] Last Admin: 08/14/22 22:07 Dose: Not Given Docusate Sodium (Docusate Sodium 100 Mg Capsule) 100 mg PO DAILY PRN PRN Reason: constipation Enoxaparin Sodium (Enoxaparin Sodium 100 Mg/Ml Syringe) 90 mg SUBCUT Q24H [facility] Last Admin: 08/14/22 22:21 Dose: 90 mg Hydralazine HCl (Hydralazine Hcl 25 Mg Tablet) 75 mg PO TID [facility]; Protocol Last Admin: 08/14/22 15:16 Dose: Not Given Sodium Chloride (Ns) 1,000 mls @ 100 mls/hr IVCONT .Q10H [facility] Last Admin: 08/15/22 03:44 Dose: 100 mls/hr Insulin Human Lispro (Insulin Lispro 100 Unit/Ml 3 Ml Vial) 0 unit SUBCUT QIDACHS [facility]; Protocol Last Admin: 08/15/22 08:25 Dose: Not Given Omeprazole (Omeprazole 40 Mg Capsule.Dr) 40 mg PO DAILY@0630 [facility] Last Admin: 08/15/22 08:24 Dose: Not Given Ondansetron HCl (Ondansetron Hcl 4 Mg/2 Ml Vial) 4 mg IVPUSH Q8H PRN PRN Reason: Nausea and Vomiting Last Admin: 08/15/22 09:20 Dose: 4 mg Oxycodone HCl (Oxycodone Hcl Immed Release 5 Mg Tablet) 5 mg PO Q6H PRN PRN Reason: severe pain Prednisone (Prednisone 10 Mg Tablet) 40 mg PO DAILY [facility]; Taper Stop: 09/18/22 11:14 Last Admin: 08/15/22 08:24 Dose: 40 mg Sodium Bicarbonate (Sodium Bicarbonate 650 Mg Tablet) 1,300 mg PO BID [facility] Last Admin: 08/15/22 08:24 Dose: 1,300 mg Sodium Chloride (0.9 % Sodium Chloride Flush 3 Ml Syringe) 3 ml IVFLUSH QSHIFT [facility] Last Admin: 08/15/22 08:26 Dose: 3 ml Home Medications Medication Instructions Recorded Confirmed Last Taken Type carvedilol 12.5 mg tablet 12.5 mg PO BID 08/13/22 08/13/22 Unknown History docusate sodium 100 mg capsule 100 mg PO DAILY PRN constipation 08/13/22 08/13/22 Unknown History ferrous fumarate 324 mg (106 mg 324 mg PO DAILY 08/13/22 08/13/22 Unknown History iron) tablet (Ferrocite) hydralazine 25 mg tablet 75 mg PO TID 08/13/22 08/13/22 Unknown History nifedipine 60 mg tablet,extended 60 mg PO DAILY 08/13/22 08/13/22 Unknown History release 24 hr oxycodone 5 mg tablet 5 mg PO Q6H PRN severe pain 08/13/22 08/13/22 Unknown History prednisone 10 mg tablet See Taper PO 1XD 08/13/22 08/13/22 Unknown History torsemide 20 mg tablet 40 mg PO BID 08/13/22 08/13/22 Unknown History Physical Exam Const General: no acute distress Neck Neck: Yes supple Resp Auscultation: diminished lung sounds Cardio Rate: regular rate GI Palpation (GI): Soft to palpation Neuro General: moves all extremities Results Lab Results 08/15/22 05:11 08/15/22 05:11 Lab results: Chemistry 08/13/22 08/15/22 21:10 05:11 Sodium 139 138 Potassium 4.5 5.2 H Carbon Dioxide 18 L 16 L BUN 41 H 40 H Creatinine 3.56 H 3.79 H Calcium 8.4 D 8.3 L Hematology 08/13/22 08/15/22 21:10 05:11 WBC 4.0 L 2.8 L Hgb 9.1 L 8.0 L Plt Count 132 L 102 L Assessment and Plan (1) MYNOR (acute kidney injury): Status: Acute Plan Acute Kidney Injury due to tubular injury Has CKD 4 at baseline; UO good No reason to suspect GN/AIN/Obstructive Uropathy No on ACEI/ARB; No indication for renal replacement Has metabolic acidosis- On NaHCO3 supplementation Labs AM; Shall closely follow up Time Spent With Patient Time: Total time managing care of this patient today ____ minutes. Procedures Date of Service Date of Service: 08/15/22
--- NOTE | 2022-08-15 09:42 | MHC.EDTECH ---
Pt washed up, all of bed linen changed. Pt out of bed to commode 1 assisted, voided small amount of yellow urine. Pt offered recliner but wanted to stay in bed, repositioned to back. Pt resting quietly in bed, call moore within reach.
--- NOTE | 2022-08-15 09:44 | PC.NURSE ---
This RN reached out to admitting MD per pt request for Dilaudid. Pt refused oxycodone and Tylenol. Pt states it does not help with pain.
--- NOTE | 2022-08-15 10:10 | PC.NURSE ---
ultrasound done at bedside
[2022-08-15] MEDS: HYDROmorphone HCl 0.5 MG/0.5 ML SYRINGE IVPUSH ×3 (10:34→23:20)
--- NOTE | 2022-08-15 10:36 | P.PNNP_ITS ---
Subjective Subjective Date of Service: 08/15/22 Interval history: Events noted. All recent data reviewed. D/W Med Attending Physical Exam 2 Vital Signs: Vital Signs: Last Vital Signs Temp 98.0 F 08/15/22 07:19 Pulse 90 08/15/22 08:33 Resp 14 08/15/22 08:33 BP 114/91 H 08/15/22 08:33 Pulse Ox 97 08/15/22 08:33 O2 Del Method Nasal Cannula 08/15/22 08:33 O2 Flow Rate 2 08/15/22 08:33 BMI result Body Mass Index 34.0 Const: General: no acute distress Orientation/consciousness: patient oriented x3 Neck: Neck: Yes supple Resp: Auscultation: diminished lung sounds Cardio: Rate: regular rate GI: Palpation (GI): Soft to palpation Neuro: General: patient oriented x3 and moves all extremities Objective Data Labs 08/15/22 05:11 08/15/22 05:11 Labs: Laboratory Results - last 24 hr 08/13/22 08/14/22 08/14/22 21:10 17:14 22:13 WBC RBC Hgb Hct MCV MCH MCHC RDW Plt Count MPV Absolute Nucleated RBC Nucleated RBC % (auto) PT INR APTT Sodium Potassium Chloride Carbon Dioxide Anion Gap BUN Creatinine Estim Creat Clear Calc Estimated GFR POC Glucose 157 H 160 H Random Glucose Estimat Average Glucose 151 Hemoglobin A1c % 6.9 Calcium 08/15/22 08/15/22 08/15/22 05:11 05:11 05:11 WBC 2.8 L RBC 2.97 L Hgb 8.0 L Hct 26.8 L MCV 90.2 MCH 26.9 L MCHC 29.9 L RDW 22.5 H Plt Count 102 L MPV 11.0 Absolute Nucleated RBC 0.020 H Nucleated RBC % (auto) 0.7 H PT 14.8 H INR 1.3 H APTT 34.2 Sodium 138 Potassium 5.2 H Chloride 114 H Carbon Dioxide 16 L Anion Gap 13 BUN 40 H Creatinine 3.79 H Estim Creat Clear Calc 23.5 Estimated GFR 14 POC Glucose Random Glucose 105 Estimat Average Glucose Hemoglobin A1c % Calcium 8.3 L 08/15/22 06:47 WBC RBC Hgb Hct MCV MCH MCHC RDW Plt Count MPV Absolute Nucleated RBC Nucleated RBC % (auto) PT INR APTT Sodium Potassium Chloride Carbon Dioxide Anion Gap BUN Creatinine Estim Creat Clear Calc Estimated GFR POC Glucose 92 Random Glucose Estimat Average Glucose Hemoglobin A1c % Calcium Microbiology Microbiology Results: Microbiology 08/13/22 21:10 Blood - Venous Blood Culture - Preliminary No growth after 24 hours. 08/13/22 21:10 Blood - Venous Blood Culture - Preliminary No growth after 24 hours. Procedures Date of Service Date of Service: 08/15/22 Assessment & Plan Assessment and plan (1) MYNOR (acute kidney injury): Status: Acute Assessment and Plan: MYNOR due to compromise in renal perfusion Has advanced CKD at baseline Metabolically acidotic- On NAHCO3 Renal function improved; D/C fluids No indication for renal replacement Shall check Iron studies Will be a candidate for Procrit soon No NSAID's/ACEI/ARB Continue rest of current management Shall closely follow up Progress Note: Quality Stroke Does the patient have a stroke diagnosis?: No
--- NOTE | 2022-08-15 12:28 | HO.PM.IMPN ---
Subjective Subjective Date of Service: 08/15/22 Interval History: Seen and evaluated this morning more alert and interactive reports seeing at her baseline retinal hemorrhage reported on CT orbit BP running soft No other overnight events Review of Systems No fever, chills but has weakness no chest pain, no palpitation has shortness of breath and coughing No abdominal pain, nausea or vomiting No urinary symptoms No any rash or wounds Physical Exam Vital Signs: Vital Signs: Last Vital Signs Temp 97.8 F 08/15/22 11:00 Pulse 83 08/15/22 11:00 Resp 16 08/15/22 11:00 BP 116/80 08/15/22 11:00 Pulse Ox 96 08/15/22 11:00 O2 Del Method Room Air 08/15/22 11:00 O2 Flow Rate 2 08/15/22 08:33 BMI result Body Mass Index 34.0 Const: Other: Constitutional : Awake, interactive, restless Neck : Normal inspection, Supple Cardiovascular : RRR, no JVP, +1 lower extremity edema Respiratory : fair bilateral air entry, basal fine crackles, wheezes or rhonchi Gastrointestinal: soft, lax, Normal bowel sounds, Non tender Skin : Warm, Dry Neurological : Alert & oriented x3, No focal deficit Objective Data Active Medications Acetaminophen (Acetaminophen 325 Mg Tablet) 650 mg PO Q6H PRN PRN Reason: Pain, Mild (Pain Scale 1-3) Aspirin (Aspirin Enteric Coated 81 Mg Tablet.) 81 mg PO DAILY [facility] Last Admin: 08/15/22 08:24 Dose: 81 mg Documented By: KEMAL Atorvastatin Calcium (Atorvastatin Calcium 40 Mg Tablet) 40 mg PO BEDTIME [facility] Last Admin: 08/14/22 22:07 Dose: Not Given Documented By: MARTA Non-Admin Reason: Patient Refused Docusate Sodium (Docusate Sodium 100 Mg Capsule) 100 mg PO DAILY PRN PRN Reason: constipation Enoxaparin Sodium (Enoxaparin Sodium 100 Mg/Ml Syringe) 90 mg SUBCUT Q24H [facility] Last Admin: 08/14/22 22:21 Dose: 90 mg Documented By: MARTA Hydralazine HCl (Hydralazine Hcl 25 Mg Tablet) 75 mg PO TID [facility]; Protocol Last Admin: 08/14/22 15:16 Dose: Not Given Documented By: MARS Non-Admin Reason: See Note Hydromorphone HCl (Hydromorphone Hcl 0.5 Mg/0.5 Ml Syringe) 0.5 mg IVPUSH Q4H PRN; Protocol PRN Reason: Pain, Severe (Pain Scale 7-10) Last Admin: 08/15/22 10:34 Dose: 0.5 mg Documented By: KEMAL Insulin Human Lispro (Insulin Lispro 100 Unit/Ml 3 Ml Vial) 0 unit SUBCUT QIDACHS [facility]; Protocol Last Admin: 08/15/22 08:25 Dose: Not Given Documented By: KEMAL Non-Admin Reason: No Insulin Coverage Omeprazole (Omeprazole 40 Mg Capsule.Dr) 40 mg PO DAILY@0630 [facility] Last Admin: 08/15/22 08:24 Dose: Not Given Documented By: KEMAL Non-Admin Reason: Patient Refused Ondansetron HCl (Ondansetron Hcl 4 Mg/2 Ml Vial) 4 mg IVPUSH Q8H PRN PRN Reason: Nausea and Vomiting Last Admin: 08/15/22 09:20 Dose: 4 mg Documented By: KEMAL Oxycodone HCl (Oxycodone Hcl Immed Release 5 Mg Tablet) 5 mg PO Q6H PRN PRN Reason: severe pain Prednisone (Prednisone 10 Mg Tablet) 40 mg PO DAILY [facility]; Taper Stop: 09/18/22 11:14 Last Admin: 08/15/22 08:24 Dose: 40 mg Documented By: KEMAL Sodium Bicarbonate (Sodium Bicarbonate 650 Mg Tablet) 1,300 mg PO BID [facility] Last Admin: 08/15/22 08:24 Dose: 1,300 mg Documented By: KEMAL Sodium Chloride (0.9 % Sodium Chloride Flush 3 Ml Syringe) 3 ml IVFLUSH QSHIFT [facility] Last Admin: 08/15/22 08:26 Dose: 3 ml Documented By: KEMAL Labs 08/15/22 05:11 08/15/22 05:11 Labs: Laboratory Results - last 24 hr 08/14/22 08/14/22 08/15/22 17:14 22:13 05:11 MCV 90.2 MCH 26.9 L MCHC 29.9 L RDW 22.5 H Plt Count 102 L MPV 11.0 Absolute Nucleated RBC 0.020 H Nucleated RBC % (auto) 0.7 H PT INR APTT Anion Gap Estim Creat Clear Calc Estimated GFR POC Glucose 157 H 160 H Random Glucose Calcium 08/15/22 08/15/22 08/15/22 05:11 05:11 06:47 MCV MCH MCHC RDW Plt Count MPV Absolute Nucleated RBC Nucleated RBC % (auto) PT 14.8 H INR 1.3 H APTT 34.2 Anion Gap 13 Estim Creat Clear Calc 23.5 Estimated GFR 14 POC Glucose 92 Random Glucose 105 Calcium 8.3 L Microbiology Microbiology Results: Microbiology 08/13/22 21:10 Blood Culture - Preliminary Blood - Venous No growth after 24 hours. 08/13/22 21:10 Blood Culture - Preliminary Blood - Venous No growth after 24 hours. Assessment and Plan (1) Diabetic retinopathy: Status: Acute (2) Cardiomyopathy: Status: Acute (3) NSTEMI (non-ST elevated myocardial infarction): Status: Acute (4) Hypertensive crisis: Status: Acute Plan A 32 years old lady with PMH of CKD4, sCHF, HTN, DM2 , PAD post transmetatarsal amputation among others who is presenting to the ED with chest pain, SOB and left foot bleeding. NSTEMI Elevated Trop I, chest pain resolved Heparin drip DCd as patient refused to draw labs on full dose renally adjusted Lovenox ASA, Statin Cardiology following ECHO pending Hypertensive crisis responded to IV and PO meds hold home BP meds for lo BP now DC IVF monitor BP closely Vision problem Has baseline diabetic retinopathy Orbit CT showed microbleeding behind the retinas will need outpatient follow up with opthalmology CKD 4 stable, monitor nephrology to follow Hx recent Pericarditis continue Prednisone DVT PPx Heparin drip The patient will need overnight hospital stay for NSTEMI treatment and BP control Time Spent With Patient Time: Total time managing care of this patient today ____ minutes. Quality Stroke Does the patient have a stroke diagnosis?: No VTE Prior VTE?: No VTE Risk Level:: Medical - low VTE Device Contraindication: Treatment Not Indicated VTE Drug Contraindication: N/A - Med Ordered
[2022-08-15 12:50] LABS: Glucose, Whole Blood 167 mg/dL (60-115)
[2022-08-15] MEDS: Insulin Lispro 100 UNIT/ML 3 ML VIAL SUBCUT ×3 (13:32→21:04)
--- NOTE | 2022-08-15 15:42 | PC.NURSE ---
rn to rn given to swapna farrell aware of plan of care.
[2022-08-15 16:06] LABS: Glucose, Whole Blood 235 mg/dL (60-115)
[2022-08-15] MEDS: Atorvastatin Calcium 40 MG TABLET PO (20:08)
[2022-08-15] MEDS: Enoxaparin Sodium 100 MG/ML SYRINGE 90 MG SUBCUT (20:09)
[2022-08-15 20:42] LABS: Glucose, Whole Blood 287 mg/dL (60-115)
[2022-08-15] MEDS: diphenhydrAMINE HCL 50 MG/ML VIAL 12.5 MG IVPUSH (21:10)
[2022-08-16] VITALS (8 sets, daily range): BP systolic 108–173; BP diastolic 58–90; PULSE 72–91; RESP 16–20; TEMP 36.1–37; O2SAT 93–99
[2022-08-16] MEDS: HYDROmorphone HCl 0.5 MG/0.5 ML SYRINGE IVPUSH ×5 (04:14→20:47)
[2022-08-16 07:58] LABS: Glucose, Whole Blood 247 mg/dL (60-115)
[2022-08-16] MEDS: Insulin Lispro 100 UNIT/ML 3 ML VIAL SUBCUT ×3 (08:32→20:48)
[2022-08-16] MEDS: predniSONE 10 MG TABLET 40 MG PO (08:32)
[2022-08-16] MEDS: carvediloL 12.5 MG TABLET PO ×2 (08:33→20:49)
[2022-08-16] MEDS: Aspirin Enteric Coated 81 MG TABLET.DR PO (08:33)
[2022-08-16] MEDS: hydrALAZINE HCl 25 MG TABLET 75 MG PO ×3 (08:33→20:48)
[2022-08-16] MEDS: 0.9 % Sodium Chloride Flush 3 ML SYRINGE IVFLUSH ×3 (08:33→20:49)
[2022-08-16] MEDS: NIFEdipine ER 60 MG TAB.ER.24 PO (08:45)
[2022-08-16] MEDS: Torsemide 20 MG TABLET 40 MG PO ×2 (08:46→20:48)
[2022-08-16 08:52] LABS: Hematocrit 30.4 % (37.0-47.0); Hemoglobin 8.9 g/dl (12.0-16.0); Mean Corpuscular HGB Conc 29.3 g/dl (31.0-35.0); Mean Corpuscular Hemoglobin 26.8 pg (27.0-33.0); Mean Corpuscular Volume 91.6 fL (80.0-98.0); Mean Platelet Volume 12.7 fL (9.4-12.3); NRBC Pct Auto 0.5 /100WBC (0.0-0.2); Platelet Count 130 X10*3/uL (160-400); Red Blood Count 3.32 X10*6/uL (4.20-5.50); Red Cell Distribution Width 22.6 % (11.0-16.0); White Blood Count 4.4 X10*3/uL (4.8-10.8)
[2022-08-16 09:12] LABS: Iron 25 mcg/dL (30-160); Percent Iron Saturation 10 % (15-50); Total Iron Binding Capacity 256 mcg/dL (228-428); Unsaturated Iron Binding 231 ug/dL
[2022-08-16 09:16] LABS: Anion Gap 14 (12-20); Blood Urea Nitrogen 46 mg/dL (9-16); Calcium 8.5 mg/dL (8.4-10.2); Carbon Dioxide 17 mmol/L (22-29); Chloride 109 mmol/L (96-108); Creatinine Clr Calc Pharmacy 21.3; Estimated Glomerular Filt Rate 12; Glucose Random 222 mg/dL (60-115); Potassium 4.9 mmol/L (3.3-5.1); Sodium 135 mmol/L (135-145)
[2022-08-16] MEDS: diphenhydrAMINE HCL 50 MG/ML VIAL 12.5 MG IVPUSH ×2 (09:48→21:39)
--- NOTE | 2022-08-16 10:13 | P.PNCA_ITS ---
Subjective Subjective Date of Service: 08/16/22 Interval history: Patient denies any acute cardiac symptoms at this time. Denies any angina or shortness of breath. Review of Systems Review of Systems Yes all other systems are reviewed and are negative Constitutional: Reports as per HPI and Reports no additional constitutional complaints Eyes: Reports as per HPI and Denies no additional eye complaints Denies system reviewed and no additional complaints, except as documented and Reports as per HPI Cardiovascular: Reports as per HPI, Reports no additional cardiovascular complaints, Denies acrocyanosis, Denies cool extremities, Denies chest pain, De nies leg edema, Denies lightheadedness, Denies palpitations and Denies dyspnea Respiratory: Reports as per HPI, Denies no additional respiratory complaints and Denies dyspnea Gastrointestinal: Reports as per HPI and Denies no additional gastrointestinal complaints Genitourinary: Reports as per HPI Musculoskeletal: Reports no additional musculoskeletal complaints and Reports as per HPI Skin/Breast: Reports system reviewed and no additional complaints, except as docu Reports system reviewed and no additional complaints, except as documented and Reports as per HPI Psychiatric: Reports no additional psychiatric complaints and Reports as per HPI Endocrine: Reports no additional endocrine complaints, Reports as per HPI and Denies palpitations Hematologic/Lymphatic: Reports no additional hematologic/lymphatic complaints and Reports as per HPI Allergic/Immunologic: Reports no additional allergic/immunologic complaints and Reports as per HPI Physical Exam Vital Signs: Last Vital Signs Temp 97.5 F 08/16/22 07:56 Pulse 87 08/16/22 07:56 Resp 20 08/16/22 07:56 BP 173/90 H 08/16/22 07:56 Pulse Ox 96 08/16/22 07:56 O2 Del Method Room Air 08/16/22 07:56 O2 Flow Rate 2 08/16/22 04:00 BMI result Body Mass Index 33.5 Const General: comfortable and no acute distress Orientation/consciousness: patient oriented x3 HEENT Other: Unremarkable Head: Yes normal to inspection Neck Neck: Yes normal visual inspection Chest Chest palpation & inspection: normal inspection of the chest Resp Auscultation: clear to auscultation bilaterally Cardio Palpation: normal PMI Heart sounds: S1 normal heart sound present, S2 normal heart sound present, no gallops, no murmurs and no rubs GI Palpation (GI): Soft to palpation Back/Spine/Pelvis Other: unremarkable Skin General skin exam: no rashes or lesions noted Neuro General: patient oriented x3 Extrem General: Yes normal to inspection Psych Mental Status: mental status grossly normal Objective Labs and Meds 08/16/22 08:24 08/16/22 08:24 Lab results: Laboratory Results - last 24 hr 08/15/22 08/15/22 08/15/22 12:47 15:59 20:38 WBC RBC Hgb Hct MCV MCH MCHC RDW Plt Count MPV Absolute Nucleated RBC Nucleated RBC % (auto) Sodium Potassium Chloride Carbon Dioxide Anion Gap BUN Creatinine Estim Creat Clear Calc Estimated GFR POC Glucose 167 H 235 H 287 H Random Glucose Calcium Iron TIBC % Saturation Unsat Iron Binding 08/16/22 08/16/22 08/16/22 07:54 08:24 08:24 WBC 4.4 L RBC 3.32 L Hgb 8.9 L Hct 30.4 L MCV 91.6 MCH 26.8 L MCHC 29.3 L RDW 22.6 H Plt Count 130 L D MPV 12.7 H Absolute Nucleated RBC 0.020 H Nucleated RBC % (auto) 0.5 H Sodium 135 Potassium 4.9 Chloride 109 H Carbon Dioxide 17 L Anion Gap 14 BUN 46 H Creatinine 4.16 H* Estim Creat Clear Calc 21.3 Estimated GFR 12 POC Glucose 247 H Random Glucose 222 H Calcium 8.5 Iron TIBC % Saturation Unsat Iron Binding 08/16/22 08:24 WBC RBC Hgb Hct MCV MCH MCHC RDW Plt Count MPV Absolute Nucleated RBC Nucleated RBC % (auto) Sodium Potassium Chloride Carbon Dioxide Anion Gap BUN Creatinine Estim Creat Clear Calc Estimated GFR POC Glucose Random Glucose Calcium Iron 25 L TIBC 256 % Saturation 10 L Unsat Iron Binding 231 Progress Note: A&P Assessment and plan (1) NSTEMI (non-ST elevated myocardial infarction): Status: Acute (2) Hypertensive emergency: Status: Resolved (3) Cardiomyopathy: Status: Acute Plan Echocardiogram with LVEF of 30-35%. Basal inferior/mid inferior akinesis. Sma ll to moderate circumferential effusion without any hemodynamic compromise. Based on troponins, demand related elevation suspected. She has got absolutely no chest pain. I had a very long discussion with her about not taking care for self. She has poorly controlled hypertension and has had numerous admissions for the same. Even this time, her blood pressure was well over 200 mm Hg upon arrival but somewhat better since then. Still on the higher side. She states that she does not take her pills because she finds them too big and cannot swallow. She also has poor vision which adds to the problems. Explained to her the fact that if she does not take her medications, then she could probably as she has complex and series health issues. She seems to understand but not sure how much she will comply. With regard to further workup, she is a poor candidate for cardiac catheterization as she does not take any medications regularly. In the absence of angina, no absolute indication for PCI either. Even if performed, there is extremely high risk of stent thrombosis due to compliance. Even if we are to detect multivessel disease, she will still be a very poor surgical candidate. Overall, do not recommend invasive options in her considering the above. Definitely take long-term aspirin. If no bleeding concerns, then can also do Plavix. Blood pressure management in conjunction with renal. High-dose statins. Discussed with Dr. Sears. Time Spent With Patient Time: Total time managing care of this patient today ____ minutes. Progress Note: Quality Stroke Does the patient have a stroke diagnosis?: No Procedures Date of Service Date of Service: 08/16/22
[2022-08-16] MEDS: Clopidogrel Bisulfate 75 MG TABLET PO (10:35)
[2022-08-16 11:34] LABS: Glucose, Whole Blood 101 mg/dL (60-115)
--- NOTE | 2022-08-16 12:48 | MHC.CM.PN ---
EMR REVIEWED, PER HOSPITALIST PT NONCOMPLIANT AND WILL NEED [facility] FOR MED MANAGEMENT, PT HAS NO PREFERENCE, REFERRAL PLACED AND [facility] WILL PROVIDE SENIOR LIVING/MED MANAGEMENT. CM WILL CONT TO FOLLOW D/C NEEDS.
--- NOTE | 2022-08-16 13:06 | P.PNNP_ITS ---
Subjective Subjective Date of Service: 08/16/22 Interval history: Seen today. All recent data reviewed.D/W Med Attending Physical Exam Vital Signs: Vital Signs: Last Vital Signs Temp 97.5 F 08/16/22 11:22 Pulse 91 08/16/22 11:22 Resp 20 08/16/22 11:22 BP 145/83 H 08/16/22 11:22 Pulse Ox 97 08/16/22 11:22 O2 Del Method Nasal Cannula 08/16/22 11:22 O2 Flow Rate 2 08/16/22 11:22 BMI result Body Mass Index 33.5 Const: General: no acute distress Neck: Neck: Yes supple Resp: Auscultation: diminished lung sounds Cardio: Rate: regular rate GI: Palpation (GI): Soft to palpation Neuro: General: moves all extremities Extrem: Other: Bipedal edema Objective Data Labs 08/16/22 08:24 08/16/22 08:24 Labs: Laboratory Results - last 24 hr 08/15/22 08/15/22 08/16/22 15:59 20:38 07:54 WBC RBC Hgb Hct MCV MCH MCHC RDW Plt Count MPV Absolute Nucleated RBC Nucleated RBC % (auto) Sodium Potassium Chloride Carbon Dioxide Anion Gap BUN Creatinine Estim Creat Clear Calc Estimated GFR POC Glucose 235 H 287 H 247 H Random Glucose Calcium Iron TIBC % Saturation Unsat Iron Binding 08/16/22 08/16/22 08/16/22 08:24 08:24 08:24 WBC 4.4 L RBC 3.32 L Hgb 8.9 L Hct 30.4 L MCV 91.6 MCH 26.8 L MCHC 29.3 L RDW 22.6 H Plt Count 130 L D MPV 12.7 H Absolute Nucleated RBC 0.020 H Nucleated RBC % (auto) 0.5 H Sodium 135 Potassium 4.9 Chloride 109 H Carbon Dioxide 17 L Anion Gap 14 BUN 46 H Creatinine 4.16 H* Estim Creat Clear Calc 21.3 Estimated GFR 12 POC Glucose Random Glucose 222 H Calcium 8.5 Iron 25 L TIBC 256 % Saturation 10 L Unsat Iron Binding 231 08/16/22 11:22 WBC RBC Hgb Hct MCV MCH MCHC RDW Plt Count MPV Absolute Nucleated RBC Nucleated RBC % (auto) Sodium Potassium Chloride Carbon Dioxide Anion Gap BUN Creatinine Estim Creat Clear Calc Estimated GFR POC Glucose 101 Random Glucose Calcium Iron TIBC % Saturation Unsat Iron Binding Microbiology Microbiology Results: Microbiology 08/13/22 21:10 Blood - Venous Blood Culture - Preliminary No growth after 48 hours. 08/13/22 21:10 Blood - Venous Blood Culture - Preliminary No growth after 48 hours. Procedures Date of Service Date of Service: 08/16/22 Assessment & Plan Assessment and plan (1) ESRD needing dialysis: Status: Acute Assessment and Plan: Has advanced CKD at baseline Had NSTEMI- Now ESRD Hypervolemic; Urine output poor Permcath tomorrow; Shall initiate HD tomorrow Outpt HD spot requested in [place] [facility] unit Time Spent With Patient Time: . Progress Note: Quality Stroke Does the patient have a stroke diagnosis?: No
--- NOTE | 2022-08-16 13:22 | HO.PM.IMPN ---
Subjective Subjective Date of Service: 08/16/22 Interval History: Seen and evaluated this morning more alert and interactive BP elevated this morning Cr worsening Edema worse No other overnight events Review of Systems Review of Systems: Yes all other systems are reviewed and are negative Physical Exam Vital Signs: Vital Signs: Last Vital Signs Temp 97.5 F 08/16/22 11:22 Pulse 91 08/16/22 11:22 Resp 20 08/16/22 11:22 BP 145/83 H 08/16/22 11:22 Pulse Ox 97 08/16/22 11:22 O2 Del Method Nasal Cannula 08/16/22 11:22 O2 Flow Rate 2 08/16/22 11:22 BMI result Body Mass Index 33.5 Const: Other: Constitutional : Awake, interactive, restless Neck : Normal inspection, Supple Cardiovascular : RRR, elevated JVP, +2 lower extremity edema Respiratory : fair bilateral air entry, basal fine crackles, wheezes or rhonchi Gastrointestinal: soft, lax, Normal bowel sounds, Non tender Skin : Warm, Dry Neurological : Alert & oriented x3, No focal deficit Objective Data Active Medications Acetaminophen (Acetaminophen 325 Mg Tablet) 650 mg PO Q6H PRN PRN Reason: Pain, Mild (Pain Scale 1-3) Aspirin (Aspirin Enteric Coated 81 Mg Tablet.) 81 mg PO DAILY [facility] Last Admin: 08/16/22 08:33 Dose: 81 mg Documented By: LARRY Atorvastatin Calcium (Atorvastatin Calcium 40 Mg Tablet) 40 mg PO BEDTIME [facility] Last Admin: 08/15/22 20:08 Dose: 40 mg Documented By: KADIE Carvedilol (Carvedilol 12.5 Mg Tablet) 12.5 mg PO BID [facility]; Protocol Last Admin: 08/16/22 08:33 Dose: 12.5 mg Documented By: LARRY Clopidogrel Bisulfate (Clopidogrel Bisulfate 75 Mg Tablet) 75 mg PO DAILY [facility] Last Admin: 08/16/22 10:35 Dose: 75 mg Documented By: LARRY Diphenhydramine HCl (Diphenhydramine Hcl 50 Mg/Ml Vial) 12.5 mg IVPUSH Q4H PRN PRN Reason: Allergic Reaction Last Admin: 08/16/22 09:48 Dose: 12.5 mg Documented By: LARRY Docusate Sodium (Docusate Sodium 100 Mg Capsule) 100 mg PO DAILY PRN PRN Reason: constipation Heparin Sodium (Porcine) (Heparin Sodium,Porcine 5,000 Unit/Ml Vial) 5,000 unit INTRACATH ONCE ONE Stop: 08/17/22 06:05 Hydralazine HCl (Hydralazine Hcl 25 Mg Tablet) 75 mg PO TID [facility]; Protocol Last Admin: 08/16/22 08:33 Dose: 75 mg Documented By: LARRY Hydromorphone HCl (Hydromorphone Hcl 0.5 Mg/0.5 Ml Syringe) 0.5 mg IVPUSH Q4H PRN; Protocol PRN Reason: Pain, Severe (Pain Scale 7-10) Last Admin: 08/16/22 12:35 Dose: 0.5 mg Documented By: LARRY Insulin Human Lispro (Insulin Lispro 100 Unit/Ml 3 Ml Vial) 0 unit SUBCUT QIDACHS [facility]; Protocol Last Admin: 08/16/22 11:40 Dose: Not Given Documented By: LARRY Non-Admin Reason: No Insulin Coverage Nifedipine (Nifedipine Er 60 Mg Tab.Er.24) 60 mg PO DAILY [facility]; Protocol Last Admin: 08/16/22 08:45 Dose: 60 mg Documented By: LARRY Omeprazole (Omeprazole 40 Mg Capsule.Dr) 40 mg PO DAILY@0630 [facility] Last Admin: 08/16/22 05:33 Dose: Not Given Documented By: MARIEL Non-Admin Reason: Patient Refused Ondansetron HCl (Ondansetron Hcl 4 Mg/2 Ml Vial) 4 mg IVPUSH Q8H PRN PRN Reason: Nausea and Vomiting Last Admin: 08/15/22 09:20 Dose: 4 mg Documented By: KEMAL Oxycodone HCl (Oxycodone Hcl Immed Release 5 Mg Tablet) 5 mg PO Q6H PRN PRN Reason: severe pain Prednisone (Prednisone 10 Mg Tablet) 40 mg PO DAILY [facility]; Taper Stop: 09/18/22 11:14 Last Admin: 08/16/22 08:32 Dose: 40 mg Documented By: LARRY Sodium Bicarbonate (Sodium Bicarbonate 650 Mg Tablet) 1,300 mg PO BID [facility] Last Admin: 08/16/22 08:33 Dose: Not Given Documented By: LARRY Non-Admin Reason: Patient Refused Sodium Chloride (0.9 % Sodium Chloride Flush 3 Ml Syringe) 3 ml IVFLUSH QSHIFT [facility] Last Admin: 08/16/22 08:33 Dose: 3 ml Documented By: LARRY Torsemide (Torsemide 20 Mg Tablet) 40 mg PO DAILY [facility]; Protocol Last Admin: 08/16/22 08:46 Dose: 40 mg Documented By: LARRY Labs 08/16/22 08:24 08/16/22 08:24 Labs: Laboratory Results - last 24 hr 08/15/22 08/15/22 08/16/22 15:59 20:38 07:54 MCV MCH MCHC RDW Plt Count MPV Absolute Nucleated RBC Nucleated RBC % (auto) Anion Gap Estim Creat Clear Calc Estimated GFR POC Glucose 235 H 287 H 247 H Random Glucose Calcium Iron TIBC % Saturation Unsat Iron Binding 08/16/22 08/16/22 08/16/22 08:24 08:24 08:24 MCV 91.6 MCH 26.8 L MCHC 29.3 L RDW 22.6 H Plt Count 130 L D MPV 12.7 H Absolute Nucleated RBC 0.020 H Nucleated RBC % (auto) 0.5 H Anion Gap 14 Estim Creat Clear Calc 21.3 Estimated GFR 12 POC Glucose Random Glucose 222 H Calcium 8.5 Iron 25 L TIBC 256 % Saturation 10 L Unsat Iron Binding 231 08/16/22 11:22 MCV MCH MCHC RDW Plt Count MPV Absolute Nucleated RBC Nucleated RBC % (auto) Anion Gap Estim Creat Clear Calc Estimated GFR POC Glucose 101 Random Glucose Calcium Iron TIBC % Saturation Unsat Iron Binding Microbiology Microbiology Results: Microbiology 08/13/22 21:10 Blood Culture - Preliminary Blood - Venous No growth after 48 hours. 08/13/22 21:10 Blood Culture - Preliminary Blood - Venous No growth after 48 hours. Assessment and Plan (1) Acute renal failure superimposed on stage 4 chronic kidney disease: Status: Acute (2) ESRD needing dialysis: Status: Acute (3) Diabetic retinopathy: Status: Acute (4) NSTEMI (non-ST elevated myocardial infarction): Status: Acute (5) Hypertensive crisis: Status: Acute Plan A 32 years old lady with PMH of CKD4, sCHF, HTN, DM2 , PAD post transmetatarsal amputation among others who is presenting to the ED with chest pain, SOB and left foot bleeding. NSTEMI Finished 48 hours full dose renally adjusted Lovenox ASA, Statin Cardiology input appreciated , add Plavix with Aspirin ECHO showed WMA at the inf. wall with decrease EF to 30-35% CMP 2/2 uncontrolled BP and IHD Keep on Carvedilol Can not have CHRISTIAN\ARBs, Spironolactone Not a candidate for angiogram at this point per forest management professor MYNOR on CKD 4 w metabolic acidosis Cr worsening to 4.1 Patient fluid overloaded on Sodium bicarbonate tablet nephrology suggested starting dialysis inpatient Permacath placement tomorrow Hypertensive crisis responded to IV and PO meds hold home BP meds for lo BP now DC IVF monitor BP closely Vision problem Has baseline diabetic retinopathy Orbit CT showed microbleeding behind the retinas will need outpatient follow up with opthalmology Hx recent Pericarditis continue Prednisone DVT PPx Heparin drip The patient will need overnight hospital stay for Permacath placement and BP control. Time Spent With Patient Time: Total time managing care of this patient today ____ minutes. Quality Stroke Does the patient have a stroke diagnosis?: No VTE Prior VTE?: No VTE Risk Level:: Medical - low VTE Device Contraindication: Treatment Not Indicated VTE Drug Contraindication: N/A - Med Ordered
[2022-08-16 16:29] LABS: Glucose, Whole Blood 281 mg/dL (60-115)
[2022-08-16 20:18] LABS: Glucose, Whole Blood 333 mg/dL (60-115)
[2022-08-16] MEDS: Atorvastatin Calcium 40 MG TABLET PO (20:49)
[2022-08-17] VITALS (8 sets, daily range): BP systolic 103–149; BP diastolic 61–87; PULSE 70–88; RESP 16–20; TEMP 36.1–36.6; O2SAT 92–99
[2022-08-17] MEDS: HYDROmorphone HCl 0.5 MG/0.5 ML SYRINGE IVPUSH ×5 (00:41→22:04)
[2022-08-17] MEDS: diphenhydrAMINE HCL 50 MG/ML VIAL 12.5 MG IVPUSH ×3 (04:54→16:56)
--- NOTE | 2022-08-17 07:19 | P.CDIM_ITS ---
PROVIDER RESPONSE TEXT: To clarify, the appropriate diagnosis supported by the clinical indicators: skin breakdown QUERY TEXT: PHYSICIAN'S DOCUMENTATION REQUEST Date of Query: 08/15/2022 12:38 PM EDT Patient Name: Shereen Taylor Admit Date: 08/14/2022 Dear Cheyenne Sears, A review of the medical record indicates additional documentation may be needed. Please review below and update the documentation accordingly. Clinical Indicators: Per ER Physician Documentation 08/13/22: Left foot: 2 chronic ulcers on the dorsal aspect of her foot which do not appear to be infected, ther e is no purulent drainage noted. history of IDDM2 Based on the above, could you please provide further information regarding the depth of the ulcers: skin breakdown subcutaneous tissue muscle bone Other (explain)Clinically unable to determine (explain)Thank you, Latoya Hooker RN Use of terms such as suspected, likely, concern for, or probable (associated with a specific diagnosi s that is being evaluated, monitored, or treated as if it exists) are acceptable and can be coded in the inpatient se tting, when documented at the time of discharge. Please use your independent medical judgment in providing your response. THIS QUERY IS PART OF THE PERMANENT MEDICAL RECORD
--- NOTE | 2022-08-17 07:19 | P.CDIM_ITS ---
PROVIDER RESPONSE TEXT: To clarify, the appropriate diagnosis supported by the clinical indicators: Other (explain): hyperkalemia QUERY TEXT: PHYSICIAN'S DOCUMENTATION REQUEST Date of Query: 08/15/2022 12:32 PM EDT Patient Name: Shereen Taylor Admit Date: 08/14/2022 Dear Cheyenne Sears, A review of the medical record indicates additional documentation may be needed. Please review below and update the documentation accordingly. Clinical Indicators: The following diagnoses or signs and symptoms were noted in the patient record: Potassium on 08/15/22: 5.2 Received Lokelma 10 gm po once on 08/15/22 Based on the above, could you clarify the appropriate diagnosis, if significant, that supports the ab ove abnormalities and additional evaluation, monitoring, and/or treatment rendered: Labs indicate a diagnosis of (please specify) Other (explain)Clinically unable to determine (explain)Thank you, Latoya Hooker RN Use of terms such as suspected, likely, concern for, or probable (associated with a specific diagnosi s that is being evaluated, monitored, or treated as if it exists) are acceptable and can be coded in the inpatient se tting, when documented at the time of discharge. Please use your independent medical judgment in providing your response. THIS QUERY IS PART OF THE PERMANENT MEDICAL RECORD
[2022-08-17 07:31] LABS: Glucose, Whole Blood 297 mg/dL (60-115)
--- NOTE | 2022-08-17 08:19 | HO.WOUND ---
Wound Care Consult Reason for consult: LE wounds w/ oozing blood for eval Patient has 2 diabetic ulcers on her left foot, although it is documented on the right foot in the nursing assessment, did make patient's RN aware of this. Dry gauze and kerlix removed at the time of consult from both wounds. Patient has a left 2nd toe wound. Looks to have been a blister that had popped. There was some unattached skin that was easily removed with gauze. Moderate serosanguineous drainage on dressing. Wound bed after cleaning was all red granulation tissue. Wound edges were attached. No undermining or tunneling. Surrounding tissue temperature was warm to touch. Periwound had no abnormalities. Wound measured 1.4cm x 1.9cm x 0.1cm. There is a left mid plantar wound. Moderate serosanguineous drainage on the dressing. Wound bed appearance was all pink. Wound edges were attached and well defined. No undermining. No odor. Periwound appearance was callused. Wound measured 0.5cm x 0.7cm x 0.3cm. Both wounds were cleansed with normal saline. Alginate ag cut to wound size. Toes were with gauze and wounds covered with gauze and secured with kerlix and elastic retention netting. Patient also was asking about obtaining a surgical shoe. Recommendation: Would recommend cleansing the both the wounds with normal saline or sea clens wound cleanser. Cut alginate ag to wound sizes and apply to wound beds. Make sure to separate toes with gauze to help prevent moisture and pressure between the toes while wrapped up. Cover with gauze and secure with sancho wrap. Change dressing every other day, if drainage is striking through dressing may change daily. Did speak with the patient about having routine diabetic foot care, diabetic shoes and the need for a greens planter to help prevent further wounds and amputations. Patient was agreeable. Regarding the surgical shoe, not sure if it would be possible to obtain a surgical shoe while in house for the patient to help offload areas while transferring. If there are any changes or questions, please feel free and reconsult. Also did discuss with patient if she is still in need for wound care services upon discharge to follow up with wound care on an outpatient basis.
[2022-08-17] MEDS: Insulin Lispro 100 UNIT/ML 3 ML VIAL SUBCUT ×3 (08:23→22:07)
[2022-08-17] MEDS: 0.9 % Sodium Chloride Flush 3 ML SYRINGE IVFLUSH ×3 (08:23→22:08)
[2022-08-17 09:24] LABS: Anion Gap 12 (12-20); Blood Urea Nitrogen 55 mg/dL (9-16); Calcium 8.4 mg/dL (8.4-10.2); Carbon Dioxide 18 mmol/L (22-29); Chloride 105 mmol/L (96-108); Creatinine Clr Calc Pharmacy 20.9; Estimated Glomerular Filt Rate 12; Glucose Random 310 mg/dL (60-115); Potassium 5.4 mmol/L (3.3-5.1); Sodium 130 mmol/L (135-145)
--- NOTE | 2022-08-17 09:29 | P.PNIM_ITS ---
Subjective Subjective Date of Service: 08/17/22 Interval History: Seen and evaluated this morning alert and interactive BP low this morning , fluctuates Cr worsening Edema worsening in LE No other overnight events Review of Systems No fever, chills but has weakness no chest pain, no palpitation has shortness of breath and coughing No abdominal pain, nausea or vomiting No urinary symptoms No any rash or wounds Physical Exam Vital Signs: Vital Signs: Last Vital Signs Temp 97.3 F 08/17/22 07:29 Pulse 70 08/17/22 07:29 Resp 20 08/17/22 07:29 BP 103/61 08/17/22 07:29 Pulse Ox 98 08/17/22 07:29 O2 Del Method Nasal Cannula 08/17/22 07:29 O2 Flow Rate 2 08/17/22 07:29 BMI result Body Mass Index 33.5 Const: Other: Constitutional : Awake, interactive, restless Neck : Normal inspection, Supple Cardiovascular : RRR, elevated JVP, +2 lower extremity edema Respiratory : fair bilateral air entry, basal fine crackles, wheezes or rhonchi Gastrointestinal: soft, lax, Normal bowel sounds, Non tender Skin : Warm, Dry Neurological : Alert & oriented x3, No focal deficit Objective Data Active Medications Acetaminophen (Acetaminophen 325 Mg Tablet) 650 mg PO Q6H PRN PRN Reason: Pain, Mild (Pain Scale 1-3) Aspirin (Aspirin Enteric Coated 81 Mg Tablet.) 81 mg PO DAILY [facility] Last Admin: 08/16/22 08:33 Dose: 81 mg Documented By: LARRY Atorvastatin Calcium (Atorvastatin Calcium 40 Mg Tablet) 40 mg PO BEDTIME [facility] Last Admin: 08/16/22 20:49 Dose: 40 mg Documented By: MARIEL Carvedilol (Carvedilol 12.5 Mg Tablet) 12.5 mg PO BID [facility]; Protocol Last Admin: 08/16/22 20:49 Dose: 12.5 mg Documented By: MARIEL Clopidogrel Bisulfate (Clopidogrel Bisulfate 75 Mg Tablet) 75 mg PO DAILY [facility] Last Admin: 08/16/22 10:35 Dose: 75 mg Documented By: LARRY Diphenhydramine HCl (Diphenhydramine Hcl 50 Mg/Ml Vial) 12.5 mg IVPUSH Q4H PRN PRN Reason: Allergic Reaction Last Admin: 08/17/22 09:10 Dose: 12.5 mg Documented By: KARLI Docusate Sodium (Docusate Sodium 100 Mg Capsule) 100 mg PO DAILY PRN PRN Reason: constipation Hydralazine HCl (Hydralazine Hcl 25 Mg Tablet) 75 mg PO TID [facility]; Protocol Last Admin: 08/16/22 20:48 Dose: 75 mg Documented By: MARIEL Hydromorphone HCl (Hydromorphone Hcl 0.5 Mg/0.5 Ml Syringe) 0.5 mg IVPUSH Q4H PRN; Protocol PRN Reason: Pain, Severe (Pain Scale 7-10) Last Admin: 08/17/22 08:23 Dose: 0.5 mg Documented By: KARLI Insulin Human Lispro (Insulin Lispro 100 Unit/Ml 3 Ml Vial) 0 unit SUBCUT QIDACHS [facility]; Protocol Last Admin: 08/17/22 08:23 Dose: 6 unit Documented By: KARLI Nifedipine (Nifedipine Er 60 Mg Tab.Er.24) 60 mg PO DAILY [facility]; Protocol Last Admin: 08/16/22 08:45 Dose: 60 mg Documented By: LARRY Omeprazole (Omeprazole 40 Mg Capsule.Dr) 40 mg PO DAILY@0630 [facility] Last Admin: 08/17/22 04:55 Dose: Not Given Documented By: MARIEL Non-Admin Reason: Patient Refused Ondansetron HCl (Ondansetron Hcl 4 Mg/2 Ml Vial) 4 mg IVPUSH Q8H PRN PRN Reason: Nausea and Vomiting Last Admin: 08/15/22 09:20 Dose: 4 mg Documented By: KEMAL Oxycodone HCl (Oxycodone Hcl Immed Release 5 Mg Tablet) 5 mg PO Q6H PRN PRN Reason: severe pain Prednisone (Prednisone 10 Mg Tablet) 40 mg PO DAILY [facility]; Taper Stop: 09/18/22 11:14 Last Admin: 08/16/22 08:32 Dose: 40 mg Documented By: LARRY Sodium Bicarbonate (Sodium Bicarbonate 650 Mg Tablet) 1,300 mg PO BID [facility] Last Admin: 08/16/22 20:49 Dose: Not Given Documented By: MARIEL Non-Admin Reason: Patient Refused Sodium Chloride (0.9 % Sodium Chloride Flush 3 Ml Syringe) 3 ml IVFLUSH QSHIFT [facility] Last Admin: 08/17/22 08:23 Dose: 3 ml Documented By: KARLI Torsemide (Torsemide 20 Mg Tablet) 40 mg PO BID [facility]; Protocol Last Admin: 08/16/22 20:48 Dose: 40 mg Documented By: MARIEL Labs 08/16/22 08:24 08/17/22 08:22 Labs: Laboratory Results - last 24 hr 08/16/22 08/16/22 08/16/22 11:22 16:21 20:03 Anion Gap Estim Creat Clear Calc Estimated GFR POC Glucose 101 281 H 333 H Random Glucose Calcium 08/17/22 08/17/22 07:27 08:22 Anion Gap 12 Estim Creat Clear Calc 20.9 Estimated GFR 12 POC Glucose 297 H Random Glucose 310 H Calcium 8.4 Assessment and Plan (1) Acute renal failure superimposed on stage 4 chronic kidney disease: Status: Acute (2) Cardiomyopathy: Status: Acute (3) NSTEMI (non-ST elevated myocardial infarction): Status: Acute (4) Hypertensive crisis: Status: Acute Plan A 32 years old lady with PMH of CKD4, sCHF, HTN, DM2 , PAD, chronic hypoxia on 2L at home post transmetatarsal amputation among others who is presenting to the ED with chest pain, SOB and left foot bleeding. NSTEMI, resolved Finished 48 hours full dose renally adjusted Lovenox ASA, Statin Cardiology input appreciated , add Plavix with Aspirin ECHO showed WMA at the inf. wall with decrease EF to 30-35% The patient was discussed about the need to take her medications and be adherent to treatment. She is not a candidate for Angiogram given her advanced kidney disease and noncompliance CMP 2/2 uncontrolled BP and IHD Keep on Carvedilol Can not have CHRISTIAN\ARBs, Spironolactone Not a candidate for angiogram at this point per polymer engineer MYNOR on CKD 4 w metabolic acidosis Cr worsening to 4.3 Patient fluid overloaded on Sodium bicarbonate tablet nephrology suggested starting dialysis inpatient Permacath placement tomorrow acute Hyponatremia Sodium of 130 2/2 fluid overload and MYNOR To be corrected with dialysis today Hypertensive crisis, labile blood pressure today BP runs low, will hold Hydralazine and Nifedipine given the fact we're starting dialysis Moniter BP overnight she might need lower doses after starting dialysis Vision problem Has baseline diabetic retinopathy Orbit CT showed microbleeding behind the retinas will need outpatient follow up with opthalmology Hx recent Pericarditis continue Prednisone DVT PPx Heparin drip The patient will need overnight hospital stay for Permacath placement, starting dialysis and BP control Time Spent With Patient Time: Total time managing care of this patient today ____ minutes. Quality Stroke Does the patient have a stroke diagnosis?: No VTE Prior VTE?: No VTE Risk Level:: Medical - low VTE Device Contraindication: Treatment Not Indicated VTE Drug Contraindication: N/A - Med Ordered
[2022-08-17 09:44] LABS: INTERNATIONAL NORM RATIO 1.1 (0.9-1.1); Prothrombin Time 12.6 SEC (10.0-13.1)
[2022-08-17 10:18] LABS: UPreg QC Valid YES; Urine Pregnancy NEGATIVE (NEGATIVE)
--- NOTE | 2022-08-17 10:47 | P.CDIM_ITS ---
PROVIDER RESPONSE TEXT: To clarify, the appropriate diagnosis supported by the clinical indicators: ESRD - CKD V now requiring permanent dialysis and/or transplant QUERY TEXT: PHYSICIAN'S DOCUMENTATION REQUEST Date of Query: 08/17/2022 09:09 AM EDT Patient Name: Shereen Taylor Admit Date: 08/14/2022 Dear Cheyenne Sears, A review of the medical record indicates additional documentation may be needed. Please review below and update the documentation accordingly. Clinical Indicators: Per Hospitalist Progress Note 08/15/22: CKD 4 Per Nephrology Progress Note 08/16/22: ESRD needing dialysis Please clarify which of the following accurately represents the patient's renal status: CKD stage 4 ESRD - CKD V now requiring permanent dialysis and/or transplant Other (explain)Clinically unable to determine (explain)Thank you, Latoya Hooker RN Use of terms such as suspected, likely, concern for, or probable (associated with a specific diagnosi s that is being evaluated, monitored, or treated as if it exists) are acceptable and can be coded in the inpatient se tting, when documented at the time of discharge. Please use your independent medical judgment in providing your response. THIS QUERY IS PART OF THE PERMANENT MEDICAL RECORD
[2022-08-17 10:54] LABS: Glucose, Whole Blood 200 mg/dL (60-115)
--- NOTE | 2022-08-17 12:47 | P.PNNP_ITS ---
Subjective Subjective Date of Service: 08/17/22 Interval history: Seen and evaluated this morning ; Renal functions worse; Edema worsening in LE; No other overnight events Physical Exam Vital Signs: Vital Signs: Last Vital Signs Temp 97.9 F 08/17/22 10:30 Pulse 74 08/17/22 10:30 Resp 18 08/17/22 10:30 BP 140/87 H 08/17/22 10:30 Pulse Ox 92 08/17/22 10:30 O2 Del Method Nasal Cannula 08/17/22 10:30 O2 Flow Rate 2 08/17/22 10:30 BMI result Body Mass Index 33.5 Const: General: no acute distress Orientation/consciousness: patient oriented x3 Neck: Neck: Yes supple Resp: Auscultation: diminished lung sounds Cardio: Rate: regular rate GI: Palpation (GI): Soft to palpation Neuro: General: patient oriented x3 and moves all extremities Extrem: Other: Edema Objective Data Labs 08/16/22 08:24 08/17/22 08:22 Labs: Laboratory Results - last 24 hr 08/16/22 08/16/22 08/17/22 16:21 20:03 07:27 PT INR Sodium Potassium Chloride Carbon Dioxide Anion Gap BUN Creatinine Estim Creat Clear Calc Estimated GFR POC Glucose 281 H 333 H 297 H Random Glucose Calcium Urine Test 08/17/22 08/17/22 08/17/22 08:22 08:22 09:15 PT 12.6 INR 1.1 Sodium 130 L Potassium 5.4 H Chloride 105 Carbon Dioxide 18 L Anion Gap 12 BUN 55 H Creatinine 4.22 H* Estim Creat Clear Calc 20.9 Estimated GFR 12 POC Glucose Random Glucose 310 H Calcium 8.4 Urine Test NEGATIVE 08/17/22 10:30 PT INR Sodium Potassium Chloride Carbon Dioxide Anion Gap BUN Creatinine Estim Creat Clear Calc Estimated GFR POC Glucose 200 H Random Glucose Calcium Urine Test Microbiology Microbiology Results: Microbiology 08/13/22 21:10 Blood - Venous Blood Culture - Preliminary No growth after 48 hours. 08/13/22 21:10 Blood - Venous Blood Culture - Preliminary No growth after 48 hours. Procedures Date of Service Date of Service: 08/17/22 Assessment & Plan Assessment and plan (1) ESRD needing dialysis: Status: Acute Assessment and Plan: Has advanced CKD at baseline Had NSTEMI- Now ESRD Hypervolemic; Urine output poor Permcath ordered; HD ordered Needs CORONARY ANGIOGRAM Outpt HD spot requested in [place] HD unit Progress Note: Quality Stroke Does the patient have a stroke diagnosis?: No
[2022-08-17 16:41] LABS: Glucose, Whole Blood 166 mg/dL (60-115)
[2022-08-17 21:45] LABS: Glucose, Whole Blood 219 mg/dL (60-115)
[2022-08-17] MEDS: Atorvastatin Calcium 40 MG TABLET PO (22:05)
[2022-08-17] MEDS: carvediloL 12.5 MG TABLET PO (22:06)
[2022-08-17] MEDS: Sodium Bicarbonate 650 MG TABLET 1300 MG PO (22:06)
[2022-08-17] MEDS: Torsemide 20 MG TABLET 40 MG PO (22:08)
[2022-08-18] VITALS (7 sets, daily range): BP systolic 125–168; BP diastolic 74–94; PULSE 80–98; RESP 18–20; TEMP 36.1–37.1; O2SAT 93–100
[2022-08-18] MEDS: HYDROmorphone HCl 0.5 MG/0.5 ML SYRINGE IVPUSH ×5 (01:50→19:21)
[2022-08-18] MEDS: diphenhydrAMINE HCL 50 MG/ML VIAL 12.5 MG IVPUSH ×3 (01:55→19:44)
[2022-08-18 05:28] LABS: HBS Num1 1.33 mIU/mL (0-7.99); HBc Num1 0.11 S/CO (0.00-0.79); HBsAGNum1 0.28 S/CO (0.00-0.99); Hepatitis B Core Antibody Nonreactive (Nonreactive); Hepatitis B Surface Antigen Negative (Negative); ~Hepatitis B Surface Antibody NONREACTIVE (Nonreactive)
[2022-08-18 07:40] LABS: Glucose, Whole Blood 88 mg/dL (60-115)
[2022-08-18] MEDS: Sodium Bicarbonate 650 MG TABLET 1300 MG PO ×2 (09:13→19:43)
[2022-08-18] MEDS: carvediloL 12.5 MG TABLET PO ×2 (09:13→19:43)
[2022-08-18] MEDS: Omeprazole 40 MG CAPSULE.DR PO (09:13)
[2022-08-18] MEDS: 0.9 % Sodium Chloride Flush 3 ML SYRINGE IVFLUSH ×2 (09:14→17:09)
[2022-08-18] MEDS: predniSONE 10 MG TABLET 40 MG PO (09:14)
[2022-08-18] MEDS: Torsemide 20 MG TABLET 40 MG PO ×2 (09:14→19:43)
[2022-08-18 11:39] LABS: Hematocrit 28.1 % (37.0-47.0); Hemoglobin 8.7 g/dl (12.0-16.0); Mean Corpuscular Hemoglobin 27.4 pg (27.0-33.0); Mean Corpuscular Volume 88.6 fL (80.0-98.0); Mean Platelet Volume 12.3 fL (9.4-12.3); Platelet Count 114 X10*3/uL (160-400); Red Blood Count 3.17 X10*6/uL (4.20-5.50); Red Cell Distribution Width 22.1 % (11.0-16.0); White Blood Count 3.8 X10*3/uL (4.8-10.8)
[2022-08-18 11:54] LABS: Anion Gap 11 (12-20); Blood Urea Nitrogen 44 mg/dL (9-16); Calcium 7.9 mg/dL (8.4-10.2); Carbon Dioxide 18 mmol/L (22-29); Chloride 107 mmol/L (96-108); Creatinine Clr Calc Pharmacy 24.8; Estimated Glomerular Filt Rate 15; Glucose Random 129 mg/dL (60-115); Potassium 4.4 mmol/L (3.3-5.1); Sodium 132 mmol/L (135-145)
[2022-08-18 14:02] LABS: Glucose, Whole Blood 223 mg/dL (60-115)
--- NOTE | 2022-08-18 14:08 | HO.PM.IMPN ---
Subjective Subjective Date of Service: 08/18/22 Interval History: patient seen and examined at bedside. She denies any worsening shortness of breath, denies any chest pain at this time, no abdominal pain nausea or vomiting, no diarrhea constipation, no urinary symptoms. Review of Systems Review of Systems: Yes all other systems are reviewed and are negative Physical Exam Vital Signs: Vital Signs: Last Vital Signs Temp 97.9 F 08/18/22 12:00 Pulse 97 08/18/22 12:00 Resp 20 08/18/22 12:00 BP 142/74 H 08/18/22 12:00 Pulse Ox 100 08/18/22 12:00 O2 Del Method Nasal Cannula 08/18/22 12:00 O2 Flow Rate 2 08/18/22 12:00 BMI result Body Mass Index 33.5 Resp: Other: normal respiratory rate, no distress, clear to auscultation bilaterally Cardio: Other: normal rate and rhythm GI: Other: abdomen is soft, nontender Extrem: Other: 2+ pitting edema bilaterally Objective Data Active Medications Acetaminophen (Acetaminophen 325 Mg Tablet) 650 mg PO Q6H PRN PRN Reason: Pain, Mild (Pain Scale 1-3) Aspirin (Aspirin Enteric Coated 81 Mg Tablet.) 81 mg PO DAILY [facility] Last Admin: 08/16/22 08:33 Dose: 81 mg Documented By: LARRY Atorvastatin Calcium (Atorvastatin Calcium 40 Mg Tablet) 40 mg PO BEDTIME [facility] Last Admin: 08/17/22 22:05 Dose: 40 mg Documented By: BERNABE Carvedilol (Carvedilol 12.5 Mg Tablet) 12.5 mg PO BID [facility]; Protocol Last Admin: 08/18/22 09:13 Dose: 12.5 mg Documented By: MALLIKA Clopidogrel Bisulfate (Clopidogrel Bisulfate 75 Mg Tablet) 75 mg PO DAILY [facility] Last Admin: 08/16/22 10:35 Dose: 75 mg Documented By: LARRY Diphenhydramine HCl (Diphenhydramine Hcl 50 Mg/Ml Vial) 12.5 mg IVPUSH Q4H PRN PRN Reason: Allergic Reaction Last Admin: 08/18/22 12:36 Dose: 12.5 mg Documented By: MALLIKA Docusate Sodium (Docusate Sodium 100 Mg Capsule) 100 mg PO DAILY PRN PRN Reason: constipation Hydralazine HCl (Hydralazine Hcl 25 Mg Tablet) 75 mg PO TID [facility]; Protocol Last Admin: 08/16/22 20:48 Dose: 75 mg Documented By: MARIEL Hydromorphone HCl (Hydromorphone Hcl 0.5 Mg/0.5 Ml Syringe) 0.5 mg IVPUSH Q4H PRN; Protocol PRN Reason: Pain, Severe (Pain Scale 7-10) Last Admin: 08/18/22 10:26 Dose: 0.5 mg Documented By: MALLIKA Insulin Human Lispro (Insulin Lispro 100 Unit/Ml 3 Ml Vial) 0 unit SUBCUT QIDACHS [facility]; Protocol Last Admin: 08/18/22 09:14 Dose: Not Given Documented By: MALLIKA Non-Admin Reason: No Insulin Coverage Nifedipine (Nifedipine Er 60 Mg Tab.Er.24) 60 mg PO DAILY [facility]; Protocol Last Admin: 08/16/22 08:45 Dose: 60 mg Documented By: LARRY Omeprazole (Omeprazole 40 Mg Capsule.Dr) 40 mg PO DAILY@0630 [facility] Last Admin: 08/18/22 09:13 Dose: 40 mg Documented By: MALLIKA Ondansetron HCl (Ondansetron Hcl 4 Mg/2 Ml Vial) 4 mg IVPUSH Q8H PRN PRN Reason: Nausea and Vomiting Last Admin: 08/15/22 09:20 Dose: 4 mg Documented By: KEMAL Oxycodone HCl (Oxycodone Hcl Immed Release 5 Mg Tablet) 5 mg PO Q6H PRN PRN Reason: severe pain Prednisone (Prednisone 10 Mg Tablet) 40 mg PO DAILY [facility]; Taper Stop: 09/18/22 11:14 Last Admin: 08/18/22 09:14 Dose: 40 mg Documented By: MALLIKA Sodium Bicarbonate (Sodium Bicarbonate 650 Mg Tablet) 1,300 mg PO BID [facility] Last Admin: 08/18/22 09:13 Dose: 1,300 mg Documented By: MALLIKA Sodium Chloride (0.9 % Sodium Chloride Flush 3 Ml Syringe) [facility] Last Admin: 08/18/22 09:14 Dose: 3 ml Documented By: MALLIKA Torsemide (Torsemide 20 Mg Tablet) 40 mg PO BID [facility]; Protocol Last Admin: 08/18/22 09:14 Dose: 40 mg Documented By: MALLIKA Labs 08/18/22 11:16 08/18/22 11:16 Labs: Laboratory Results - last 24 hr 08/17/22 08/17/22 08/17/22 08:22 16:37 21:40 MCV MCH MCHC RDW Plt Count MPV Absolute Nucleated RBC Nucleated RBC % (auto) Anion Gap Estim Creat Clear Calc Estimated GFR POC Glucose 166 H 219 H Random Glucose Calcium Hep Bs Antigen Negative Hep Bs Antibody NONREACTIVE Hep B Core Total Ab Nonreactive 08/18/22 08/18/22 08/18/22 07:35 11:16 11:16 MCV 88.6 MCH 27.4 MCHC 31.0 RDW 22.1 H Plt Count 114 L MPV 12.3 Absolute Nucleated RBC 0.000 Nucleated RBC % (auto) 0.0 Anion Gap 11 L Estim Creat Clear Calc 24.8 Estimated GFR 15 POC Glucose 88 Random Glucose 129 H Calcium 7.9 L Hep Bs Antigen Hep Bs Antibody Hep B Core Total Ab 08/18/22 13:58 MCV MCH MCHC RDW Plt Count MPV Absolute Nucleated RBC Nucleated RBC % (auto) Anion Gap Estim Creat Clear Calc Estimated GFR POC Glucose 223 H Random Glucose Calcium Hep Bs Antigen Hep Bs Antibody Hep B Core Total Ab Assessment and Plan (1) Acute renal failure superimposed on stage 4 chronic kidney disease: Status: Acute (2) ESRD needing dialysis: Status: Acute (3) NSTEMI (non-ST elevated myocardial infarction): Status: Acute Plan A 32 years old lady with PMH of CKD4, sCHF, HTN, DM2 , PAD, chronic hypoxia on 2L at home post transmetatarsal amputation among others who is presenting to the ED with chest pain, SOB and left foot bleeding. # NSTEMI, resolved - status post renally dosed Lovenox - continue aspirin and statin, Plavix - not an angiogram candidate due to her advanced kidney disease and history of noncompliance - The patient was discussed about the need to take her medications and be adherent to treatment. # cardiomyopathy with reduced ejection fraction - secondary to hypertension - continue carvedilol - Can not have CHRISTIAN\ARBs, Spironolactone due to CKD - Not a candidate for angiogram at this point per medical sales - continue p.o. torsemide #MYNOR on CKD 4 w metabolic acidosis - worsening kidney function with fluid overload - plan for hemodialysis inpatient, - PermCath in place. with plan for dialysis in a.m. # acute Hyponatremia - improving - secondary to fluid overload and MYNOR - follow BMP # Hypertensive crisis, labile blood pressure - stable BP - continue told nifedipine and hydralazine as patient is being started on dialysis and may developed hypotension - continue to monitor BP q.4 hours - may restart home medication at lower dose BP stays stable # Vision problem - Has baseline diabetic retinopathy - Orbit CT showed microbleeding behind the retinas - will need outpatient follow up with opthalmology # Hx recent Pericarditis - continue Prednisone DVT PPx: subcu heparin The patient will need overnight hospital stay for Permacath placement, starting dialysis and BP control Time Spent With Patient Time: Total time managing care of this patient today ____ minutes. Quality Stroke Does the patient have a stroke diagnosis?: No VTE Prior VTE?: No VTE Risk Level:: Medical - low VTE Device Contraindication: Treatment Not Indicated VTE Drug Contraindication: N/A - Med Ordered
--- NOTE | 2022-08-18 14:29 | MHC.CM.PN ---
Addendum entered by Vane Houston 08/18/22 15:13: This CM received a phone call from Sindi at [facility] ([phone]), to update that pt will have the following dialysis schedule: an arrival time of 6am, chair time of 6:15am-10:15am on [id number], and can begin on 08/22/22. Sindi requests that they are updated to confirm that she will begin dialysis with them on that date. This CM called pts sister Joys and confirmed that she will be transporting her sister to dialysis. Original Note: EMR reviewed and per MD rounds, pt is not medically cleared for D/C due to Permacath placement, pt starting dialysis, and BP control. CM will continue to follow.
[2022-08-18] MEDS: Heparin Sodium,Porcine 5,000 UNIT/ML VIAL 5000 UNIT SUBCUT (14:45)
[2022-08-18] MEDS: Insulin Lispro 100 UNIT/ML 3 ML VIAL SUBCUT ×3 (14:46→22:20)
--- NOTE | 2022-08-18 16:28 | P.PNNP_ITS ---
Subjective Subjective Date of Service: 08/18/22 Interval history: seen and examined, events noted Physical Exam Vital Signs: Vital Signs: Last Vital Signs Temp 98 F 08/18/22 15:00 Pulse 85 08/18/22 15:00 Resp 20 08/18/22 15:00 BP 134/85 08/18/22 15:00 Pulse Ox 95 08/18/22 15:00 O2 Del Method Nasal Cannula 08/18/22 15:00 O2 Flow Rate 2 08/18/22 15:00 BMI result Body Mass Index 33.5 Const: General: no acute distress Orientation/consciousness: patient oriented x3 Neck: Neck: Yes supple Resp: Auscultation: diminished lung sounds Cardio: Rate: regular rate GI: Palpation (GI): Soft to palpation Neuro: General: patient oriented x3 and moves all extremities Extrem: Other: Edema Objective Data Labs 08/18/22 11:16 08/18/22 11:16 Labs: Laboratory Results - last 24 hr 08/17/22 08/17/22 08/17/22 08:22 16:37 21:40 WBC RBC Hgb Hct MCV MCH MCHC RDW Plt Count MPV Absolute Nucleated RBC Nucleated RBC % (auto) Sodium Potassium Chloride Carbon Dioxide Anion Gap BUN Creatinine Estim Creat Clear Calc Estimated GFR POC Glucose 166 H 219 H Random Glucose Calcium Hep Bs Antigen Negative Hep Bs Antibody NONREACTIVE Hep B Core Total Ab Nonreactive 08/18/22 08/18/22 08/18/22 07:35 11:16 11:16 WBC 3.8 L RBC 3.17 L Hgb 8.7 L Hct 28.1 L MCV 88.6 MCH 27.4 MCHC 31.0 RDW 22.1 H Plt Count 114 L MPV 12.3 Absolute Nucleated RBC 0.000 Nucleated RBC % (auto) 0.0 Sodium 132 L Potassium 4.4 Chloride 107 Carbon Dioxide 18 L Anion Gap 11 L BUN 44 H Creatinine 3.56 H Estim Creat Clear Calc 24.8 Estimated GFR 15 POC Glucose 88 Random Glucose 129 H Calcium 7.9 L Hep Bs Antigen Hep Bs Antibody Hep B Core Total Ab 08/18/22 13:58 WBC RBC Hgb Hct MCV MCH MCHC RDW Plt Count MPV Absolute Nucleated RBC Nucleated RBC % (auto) Sodium Potassium Chloride Carbon Dioxide Anion Gap BUN Creatinine Estim Creat Clear Calc Estimated GFR POC Glucose 223 H Random Glucose Calcium Hep Bs Antigen Hep Bs Antibody Hep B Core Total Ab Microbiology Microbiology Results: Microbiology 08/13/22 21:10 Blood - Venous Blood Culture - Preliminary No growth after 48 hours. 08/13/22 21:10 Blood - Venous Blood Culture - Preliminary No growth after 48 hours. Procedures Date of Service Date of Service: 08/18/22 Assessment & Plan Assessment and plan (1) ESRD needing dialysis: Status: Acute Assessment and Plan: ESRD: h/o adv CKD that has now prog to ESRD Anemia: epo/Fe per protocol CAD REC: HD in am and then has outpt HD spot arrange at [place] HD unit for TTS Time Spent With Patient Time: Total time managing care of this patient today ____ minutes. Progress Note: Quality Stroke Does the patient have a stroke diagnosis?: No
[2022-08-18 16:31] LABS: Glucose, Whole Blood 258 mg/dL (60-115)
[2022-08-18] MEDS: Atorvastatin Calcium 40 MG TABLET PO (19:43)
[2022-08-18 22:01] LABS: Glucose, Whole Blood 310 mg/dL (60-115)
[2022-08-19] MEDS: HYDROmorphone HCl 0.5 MG/0.5 ML SYRINGE IVPUSH ×6 (00:04→21:46)
[2022-08-19] MEDS: diphenhydrAMINE HCL 50 MG/ML VIAL 12.5 MG IVPUSH ×3 (00:10→21:41)
[2022-08-19] MEDS: 0.9 % Sodium Chloride Flush 3 ML SYRINGE IVFLUSH ×4 (00:14→21:41)
[2022-08-19 01:51] VITALS: BP 160/78
[2022-08-19] MEDS: Heparin Sodium,Porcine 5,000 UNIT/ML VIAL 5000 UNIT SUBCUT ×2 (03:45→14:35)
[2022-08-19 03:51] VITALS: BP 177/84; PULSE 95; RESP 18; TEMP 36.2; O2SAT 100
[2022-08-19 06:22] LABS: Hematocrit 27.9 % (37.0-47.0); Hemoglobin 8.5 g/dl (12.0-16.0); Mean Corpuscular HGB Conc 30.5 g/dl (31.0-35.0); Mean Corpuscular Hemoglobin 27.2 pg (27.0-33.0); Mean Corpuscular Volume 89.1 fL (80.0-98.0); Mean Platelet Volume 12.4 fL (9.4-12.3); NRBC Pct Auto 0.4 /100WBC (0.0-0.2); Platelet Count 110 X10*3/uL (160-400); Red Blood Count 3.13 X10*6/uL (4.20-5.50); Red Cell Distribution Width 21.3 % (11.0-16.0); White Blood Count 4.5 X10*3/uL (4.8-10.8)
[2022-08-19 07:31] VITALS: BP 150/60; PULSE 85; RESP 20; TEMP 36.6; O2SAT 90
[2022-08-19 08:02] LABS: Glucose, Whole Blood 229 mg/dL (60-115)
[2022-08-19] MEDS: Insulin Lispro 100 UNIT/ML 3 ML VIAL SUBCUT ×4 (09:04→21:39)
[2022-08-19 11:56] VITALS: BP 171/78; PULSE 97; RESP 18; TEMP 36.2; O2SAT 100
[2022-08-19 12:05] LABS: Glucose, Whole Blood 198 mg/dL (60-115)
[2022-08-19] MEDS: predniSONE 10 MG TABLET 40 MG PO (12:16)
[2022-08-19] MEDS: carvediloL 12.5 MG TABLET PO ×2 (12:17→21:31)
[2022-08-19] MEDS: Torsemide 20 MG TABLET 40 MG PO ×2 (12:17→21:31)
--- NOTE | 2022-08-19 13:29 | HO.PM.IMPN ---
Subjective Subjective Date of Service: 08/19/22 Interval History: Patient seen and examined at bedside, she is post dialysis this a.m., she is feeling very weak post ESRD, otherwise denies any chest pain, has pain at the site of the catheter but otherwise has no chest pain, no abdominal pain, no nausea or vomiting, tolerating her food, no diarrhea constipation Review of Systems Review of Systems: Yes all other systems are reviewed and are negative Physical Exam Vital Signs: Vital Signs: Last Vital Signs Temp 97.1 F 08/19/22 11:56 Pulse 97 08/19/22 11:56 Resp 18 08/19/22 11:56 BP 171/78 H 08/19/22 11:56 Pulse Ox 100 08/19/22 11:56 O2 Del Method Nasal Cannula 08/19/22 11:56 O2 Flow Rate 2 08/19/22 11:56 BMI result Body Mass Index 33.5 Const: Other: Patient alert, oriented x3 Objective Data Active Medications Acetaminophen (Acetaminophen 325 Mg Tablet) 650 mg PO Q6H PRN PRN Reason: Pain, Mild (Pain Scale 1-3) Aspirin (Aspirin Enteric Coated 81 Mg Tablet.) 81 mg PO DAILY [facility] Last Admin: 08/16/22 08:33 Dose: 81 mg Documented By: LARRY Atorvastatin Calcium (Atorvastatin Calcium 40 Mg Tablet) 40 mg PO BEDTIME [facility] Last Admin: 08/18/22 19:43 Dose: 40 mg Documented By: PARAG Carvedilol (Carvedilol 12.5 Mg Tablet) 12.5 mg PO BID [facility]; Protocol Last Admin: 08/19/22 12:17 Dose: 12.5 mg Documented By: YUDITH Clopidogrel Bisulfate (Clopidogrel Bisulfate 75 Mg Tablet) 75 mg PO DAILY [facility] Last Admin: 08/16/22 10:35 Dose: 75 mg Documented By: LARRY Diphenhydramine HCl (Diphenhydramine Hcl 50 Mg/Ml Vial) 12.5 mg IVPUSH Q4H PRN PRN Reason: Allergic Reaction Last Admin: 08/19/22 09:00 Dose: 12.5 mg Documented By: YUDITH Docusate Sodium (Docusate Sodium 100 Mg Capsule) 100 mg PO DAILY PRN PRN Reason: constipation Heparin Sodium (Porcine) (Heparin Sodium,Porcine 5,000 Unit/Ml Vial) 5,000 unit SUBCUT Q12H [facility] Last Admin: 08/19/22 03:45 Dose: 5,000 unit Documented By: PATRICIO Hydralazine HCl (Hydralazine Hcl 25 Mg Tablet) 75 mg PO TID [facility]; Protocol Last Admin: 08/16/22 20:48 Dose: 75 mg Documented By: MARIEL Hydromorphone HCl (Hydromorphone Hcl 0.5 Mg/0.5 Ml Syringe) 0.5 mg IVPUSH Q4H PRN; Protocol PRN Reason: Pain, Severe (Pain Scale 7-10) Last Admin: 08/19/22 12:58 Dose: 0.5 mg Documented By: YUDITH Insulin Human Lispro (Insulin Lispro 100 Unit/Ml 3 Ml Vial) 0 unit SUBCUT QIDACHS [facility]; Protocol Last Admin: 08/19/22 12:16 Dose: 2 unit Documented By: YUDITH Nifedipine (Nifedipine Er 60 Mg Tab.Er.24) 60 mg PO DAILY [facility]; Protocol Last Admin: 08/16/22 08:45 Dose: 60 mg Documented By: LARRY Omeprazole (Omeprazole 40 Mg Capsule.Dr) 40 mg PO DAILY@0630 [facility] Last Admin: 08/18/22 09:13 Dose: 40 mg Documented By: MALLIKA Ondansetron HCl (Ondansetron Hcl 4 Mg/2 Ml Vial) 4 mg IVPUSH Q8H PRN PRN Reason: Nausea and Vomiting Last Admin: 08/15/22 09:20 Dose: 4 mg Documented By: KEMAL Prednisone (Prednisone 10 Mg Tablet) 40 mg PO DAILY [facility]; Taper Stop: 09/18/22 11:14 Last Admin: 08/19/22 12:16 Dose: 40 mg Documented By: YUDITH Sodium Bicarbonate (Sodium Bicarbonate 650 Mg Tablet) 1,300 mg PO BID [facility] Last Admin: 08/19/22 12:16 Dose: Not Given Documented By: YUDITH Non-Admin Reason: Patient Refused Comments: pt education provided. made aware. Sodium Chloride (0.9 % Sodium Chloride Flush 3 Ml Syringe) 3 ml IVFLUSH QSHIFT [facility] Last Admin: 08/19/22 09:04 Dose: 3 ml Documented By: YUDITH Torsemide (Torsemide 20 Mg Tablet) 40 mg PO BID [facility]; Protocol Last Admin: 08/19/22 12:17 Dose: 40 mg Documented By: YUDITH Labs 08/19/22 05:59 08/18/22 11:16 Labs: Laboratory Results - last 24 hr 08/18/22 08/18/22 08/18/22 13:58 16:27 21:58 MCV MCH MCHC RDW Plt Count MPV Absolute Nucleated RBC Nucleated RBC % (auto) POC Glucose 223 H 258 H 310 H 08/19/22 08/19/22 08/19/22 05:59 07:58 11:54 MCV 89.1 MCH 27.2 MCHC 30.5 L RDW 21.3 H Plt Count 110 L MPV 12.4 H Absolute Nucleated RBC 0.020 H Nucleated RBC % (auto) 0.4 H POC Glucose 229 H 198 H Microbiology Microbiology Results: Microbiology 08/13/22 21:10 Blood Culture - Final Blood - Venous No growth after 5 days. 08/13/22 21:10 Blood Culture - Final Blood - Venous No growth after 5 days. Assessment and Plan (1) Acute renal failure superimposed on stage 4 chronic kidney disease: Status: Acute (2) ESRD needing dialysis: Status: Acute (3) NSTEMI (non-ST elevated myocardial infarction): Status: Acute (4) Hypertensive crisis: Status: Acute Plan A 32 years old lady with PMH of CKD4, sCHF, HTN, DM2 , PAD, chronic hypoxia on 2L at home post transmetatarsal amputation among others who is presenting to the ED with chest pain, SOB and left foot bleeding. # NSTEMI, resolved - status post renally dosed Lovenox - continue aspirin and statin, Plavix - not an angiogram candidate due to her advanced kidney disease and history of noncompliance - The patient was discussed about the need to take her medications and be adherent to treatment. # ESRD - h/o adv CKD that has now progressed to ESRD - PermCath placed - started on HD today 08/19 with plan for dialysis TTS at [facility] # cardiomyopathy with reduced ejection fraction - secondary to hypertension - continue carvedilol - spoke to nephrology, ok to start losartan - dialysis for fluid management # acute Hyponatremia - improving - secondary to fluid overload and MYNOR - follow BMP # Hypertensive crisis, labile blood pressure - stable BP - Bp meds were stopped due to fear of hypotension but now hypertensive. will resume nifidipine, start losartan after discussion with nephrology. - discontinue hydralazine at this time and can be resumed in future if required # Vision problem - Has baseline diabetic retinopathy - Orbit CT showed microbleeding behind the retinas - will need outpatient follow up with opthalmology # Hx recent Pericarditis - continue Prednisone DVT PPx: subcu heparin Dispo: Pt experiencing generalized weakness post dialysis. she does not feel well enough to go home. Will reassess for discharge in AM Time Spent With Patient Time: Total time managing care of this patient today ____ minutes. Quality Stroke Does the patient have a stroke diagnosis?: No VTE Prior VTE?: No VTE Risk Level:: Medical - low VTE Device Contraindication: Treatment Not Indicated VTE Drug Contraindication: N/A - Med Ordered
[2022-08-19] MEDS: Losartan Potassium 25 MG TABLET PO (14:35)
[2022-08-19] MEDS: NIFEdipine ER 60 MG TAB.ER.24 PO (14:35)
[2022-08-19 16:03] LABS: Glucose, Whole Blood 281 mg/dL (60-115)
--- NOTE | 2022-08-19 21:11 | PM.PNNEP ---
Subjective Subjective Date of Service: 08/19/22 Interval history: Seen nd examined, events noted currently on hd Physical Exam Vital Signs: Vital Signs: Last Vital Signs Temp 97.1 F 08/19/22 11:56 Pulse 97 08/19/22 11:56 Resp 18 08/19/22 11:56 BP 171/78 H 08/19/22 11:56 Pulse Ox 100 08/19/22 11:56 O2 Del Method Nasal Cannula 08/19/22 11:56 O2 Flow Rate 2 08/19/22 11:56 BMI result Body Mass Index 33.5 Const: General: no acute distress Orientation/consciousness: patient oriented x3 Neck: Neck: Yes supple Resp: Auscultation: diminished lung sounds Cardio: Rate: regular rate GI: Palpation (GI): Soft to palpation Neuro: General: patient oriented x3 and moves all extremities Extrem: Other: Edema Objective Data Labs 08/19/22 05:59 08/18/22 11:16 Labs: Laboratory Results - last 24 hr 08/18/22 08/19/22 08/19/22 21:58 05:59 07:58 WBC 4.5 L RBC 3.13 L Hgb 8.5 L Hct 27.9 L MCV 89.1 MCH 27.2 MCHC 30.5 L RDW 21.3 H Plt Count 110 L MPV 12.4 H Absolute Nucleated RBC 0.020 H Nucleated RBC % (auto) 0.4 H POC Glucose 310 H 229 H 08/19/22 08/19/22 11:54 15:59 WBC RBC Hgb Hct MCV MCH MCHC RDW Plt Count MPV Absolute Nucleated RBC Nucleated RBC % (auto) POC Glucose 198 H 281 H Microbiology Microbiology Results: Microbiology 08/13/22 21:10 Blood - Venous Blood Culture - Final No growth after 5 days. 08/13/22 21:10 Blood - Venous Blood Culture - Final No growth after 5 days. Procedures Date of Service Date of Service: 08/19/22 Assessment & Plan Assessment and plan (1) ESRD needing dialysis: Status: Acute Assessment and Plan: ESRD: h/o adv CKD that has now prog to ESRD Anemia: epo/Fe per protocol CAD REC: HD in am and then has outpt HD spot arrange at [place] HD unit for TTS Time Spent With Patient Time: Total time managing care of this patient today ____ minutes. Progress Note: Quality Stroke Does the patient have a stroke diagnosis?: No
[2022-08-19] MEDS: Sodium Bicarbonate 650 MG TABLET 1300 MG PO (21:30)
[2022-08-19] MEDS: Atorvastatin Calcium 40 MG TABLET PO (21:31)
[2022-08-19 21:37] LABS: Glucose, Whole Blood 322 mg/dL (60-115)
[2022-08-19 22:27] VITALS: BP 147/87; PULSE 96; TEMP 36.8; O2SAT 98
[2022-08-20] VITALS: BP 137/70; PULSE 100; RESP 18; TEMP 36.5; O2SAT 96
--- NOTE | 2022-08-20 01:31 | PC.NURSE ---
pt refused heparin shot, educated to pt importance of heparin. pt still refused. notified. pt occasionally moving around.
[2022-08-20] MEDS: diphenhydrAMINE HCL 50 MG/ML VIAL 12.5 MG IVPUSH ×2 (01:41→05:52)
[2022-08-20] MEDS: HYDROmorphone HCl 0.5 MG/0.5 ML SYRINGE IVPUSH ×3 (01:41→10:15)
[2022-08-20 03:53] VITALS: BP 132/71; PULSE 97; RESP 16; TEMP 36.5; O2SAT 96
[2022-08-20 06:28] LABS: MANUAL DIFF FLAG NO
[2022-08-20 06:34] LABS: Hematocrit 31.4 % (37.0-47.0); Hemoglobin 9.5 g/dl (12.0-16.0); Imm Gran Abs Auto 0.02 X10*3/uL (0.00-0.03); Imm Gran Pct Auto 0.4 % (0.0-0.4); Lymphocytes Absolute Auto 0.2 X10*3/uL (1.2-4.9); Lymphocytes Percent Auto 4.4 % (20-40); Mean Corpuscular HGB Conc 30.3 g/dl (31.0-35.0); Mean Corpuscular Hemoglobin 27.1 pg (27.0-33.0); Mean Corpuscular Volume 89.7 fL (80.0-98.0); Mean Platelet Volume 12.9 fL (9.4-12.3); Monocytes Absolute Auto 0.3 X10*3/uL (0.1-1.2); Monocytes Percent Auto 7.4 % (2-11); Neutrophils Percent Auto 87.8 % (45-73); Platelet Count 120 X10*3/uL (160-400); Red Cell Distribution Width 20.8 % (11.0-16.0); White Blood Count 4.6 X10*3/uL (4.8-10.8)
[2022-08-20 06:54] LABS: Anion Gap 14 (12-20); Blood Urea Nitrogen 42 mg/dL (9-16); Calcium 8.2 mg/dL (8.4-10.2); Carbon Dioxide 18 mmol/L (22-29); Chloride 104 mmol/L (96-108); Creatinine Clr Calc Pharmacy 27.6; Estimated Glomerular Filt Rate 17; Glucose Random 417 mg/dL (60-115); Potassium 4.5 mmol/L (3.3-5.1); Sodium 131 mmol/L (135-145)
[2022-08-20 07:21] VITALS: BP 125/85; PULSE 90; RESP 20; TEMP 36.2; O2SAT 100
[2022-08-20 07:51] LABS: Glucose, Whole Blood 366 mg/dL (60-115)
[2022-08-20] MEDS: 0.9 % Sodium Chloride Flush 3 ML SYRINGE IVFLUSH (07:51)
[2022-08-20] MEDS: Losartan Potassium 25 MG TABLET PO (07:52)
[2022-08-20] MEDS: Torsemide 20 MG TABLET 40 MG PO (07:52)
[2022-08-20] MEDS: carvediloL 12.5 MG TABLET PO (07:52)
[2022-08-20] MEDS: predniSONE 10 MG TABLET 40 MG PO (07:53)
[2022-08-20] MEDS: NIFEdipine ER 60 MG TAB.ER.24 PO (07:53)
[2022-08-20] MEDS: Omeprazole 40 MG CAPSULE.DR PO (07:53)
[2022-08-20] MEDS: Insulin Lispro 100 UNIT/ML 3 ML VIAL SUBCUT ×2 (07:55→12:15)
--- NOTE | 2022-08-20 10:09 | PM.DS ---
DS: Providers Provider Date of Service: 08/20/22 Date of admission: 08/14/22 10:45 Primary care physician: Abdon Beard MD Consults: 08/14/22 10:45 Consult to Cardiology Routine Consulting Provider[place] [facility] [place] [facility] Reason for consultation: NSTEMI for your kind eval. DS: Diagnosis Discharge Diagnosis (1) ESRD needing dialysis: Status: Acute (2) Acute renal failure superimposed on stage 4 chronic kidney disease: Status: Acute (3) Diabetic retinopathy: Status: Acute (4) NSTEMI (non-ST elevated myocardial infarction): Status: Acute (5) Hypertensive crisis: Status: Acute (6) Pleuritic chest pain: Status: Acute (7) Vomiting: Status: Acute (8) Elevated troponin I level: Status: Acute DS: Summary Hospital Course Hospital Course: Admission note HPI A 32 years old lady with PMH of CKD4, sCHF, HTN, DM2 , PAD post transmetatarsal amputation among others who is presenting to the ED with chest pain, SOB and left foot bleeding. reporting nausea and vomiting. denies fever, chills, headache, double vision, change in bowel habit or urinary symptoms. reporting pain is worse with breathing and coughing. EMS brought her to hospital as her sister was concerned about bleeding and odor of LL extremity. she reports oozing blood and odor of the foot as she had amputation previously for the last 2 weeks or so. no drianage noted. In ED found to have elevated BP readings responding to IV Labetalol and hydralazine. Elevated Trop >1000 started on Heparin drip. Admitted for further eval and treatment. Hospital course # NSTEMI, resolved Admitted for treatment with IV heparin drip as she presented with elevated Trop of 1200, chest pain and vomiting with concern of ST depressions. refused to keep up with PTT testing and chaged to status post renally dosed Lovenox after cardiology consultation. started on aspirin and statin, Plavix per cardio as she is not an angiogram candidate due to her advanced kidney disease and? history of noncompliance with medicaitons as outpatient. she was discussed about the need to take her medications and be adherent to treatment. To be follow as outpatient w cardiology. # Acute kidney injury on top of CKD4 with new ESRD requiring dialysis. CKD that has now progressed to ESRD. PermCath placed and started on HD for 3 sessions during hospital stay with plan for dialysis TTS at [facility] as outpatient. To follow w dr Bautista as outpatient. ? #? cardiomyopathy with reduced ejection fraction ECHO showed reduced EF to 30 with decrease wall-motion in the lower are of heart secondary to hypertension and NSTEMI. continue carvedilol. started Lisinopril with ongoing dialysis for fluid management. # acute Hyponatremia secondary to fluid overload and MYNOR, resolved. # Hypertensive crisis, labile blood pressure Noted on presentation with significantly elevated readings from non-adherent to her meds. Bp meds were stopped due to fear of hypotension?after many IV meds. resumeed nifidipine, Lisnipril and DC Hydralazine after discussion with nephrology. BP maintained well. # Vision problem Has baseline diabetic retinopathy w Orbit CT showed microbleeding behind the retinas will need outpatient follow up with opthalmology Discontinue Hydralazine Continue Nifedipine and Carvedilol Start Lisinopril To follow with dr Bhardwaj from cardiology as outpatient To follow with [place] [facility] for dialysis sessions TTS. Dr Bautista as director of business systems outpatient. Time Spent with Patient Time attestation: Total time managing care of this patient today ____ minutes. Discharge coordination time: Greater than 30 minutes Quality: Safe Use of Opioids Does Pt have an Active Cancer Diagnosis on the Problem List?: No Quality: Stroke Does the patient have a stroke diagnosis?: No Physical Exam Vital Signs: Vital Signs: Last Vital Signs Temp 97.1 F 08/20/22 07:21 Pulse 90 08/20/22 07:21 Resp 20 08/20/22 07:21 BP 125/85 08/20/22 07:21 Pulse Ox 100 08/20/22 07:21 O2 Del Method Nasal Cannula 08/20/22 07:21 O2 Flow Rate 2 08/20/22 07:21 BMI result Body Mass Index 33.5 Const: Other: Constitutional : Awake, interactive, restless Neck : Normal inspection, Supple Cardiovascular : RRR, elevated JVP, trace lower extremity edema Respiratory : fair bilateral air entry, basal fine crackles, wheezes or rhonchi Gastrointestinal: soft, lax, Normal bowel sounds, Non tender Skin : Warm, Dry. PErmacath place clean with no erthyma Neurological : Alert & oriented x3, No focal deficit DS: Data Data Completed and Pending Completed studies during hospitalization [Text1]: Procedures Detachment at Right Foot, Partial 1st Ray, Open Approach (03/01/20) Detachment at Right Foot, Partial 2nd Ray, Open Approach (03/01/20) Detachment at Right Foot, Partial 3rd Ray, Open Approach (03/01/20) Detachment at Right Foot, Partial 4th Ray, Open Approach (03/01/20) Detachment at Right Foot, Partial 5th Ray, Open Approach (03/01/20) Drainage of Right Pleural Cavity, Percutaneous Approach (01/14/21) Insertion of Infusion Device into Superior Vena Cava, Percutaneous Approach (01/14/21) Removal of Infusion Device from Great Vessel, External Approach (01/14/21) Transfusion of Nonautologous Red Blood Cells into Peripheral Vein, Percutaneous Approach (04/22/22) Labs on day of discharge: Laboratory Results - last 24 hr 08/19/22 08/19/22 08/19/22 11:54 15:59 21:29 WBC RBC Hgb Hct MCV MCH MCHC RDW Plt Count MPV Immature Gran % (Auto) Neut % (Auto) Lymph % (Auto) [place] % (Auto) Eos % (Auto) Baso % (Auto) Lymph # (Auto) [place] # (Auto) Eos # (Auto) Baso # (Auto) Abs Immat Gran (auto) Absolute Neuts (auto) Absolute Nucleated RBC Nucleated RBC % (auto) Sodium Potassium Chloride Carbon Dioxide Anion Gap BUN Creatinine Estim Creat Clear Calc Estimated GFR POC Glucose 198 H 281 H 322 H Random Glucose Calcium 08/20/22 08/20/22 08/20/22 06:22 06:22 07:24 WBC 4.6 L RBC 3.50 L Hgb 9.5 L Hct 31.4 L MCV 89.7 MCH 27.1 MCHC 30.3 L RDW 20.8 H Plt Count 120 L MPV 12.9 H Immature Gran % (Auto) 0.4 Neut % (Auto) 87.8 H Lymph % (Auto) 4.4 L [place] % (Auto) 7.4 Eos % (Auto) 0.0 Baso % (Auto) 0.0 Lymph # (Auto) 0.2 L [place] # (Auto) 0.3 Eos # (Auto) 0.0 Baso # (Auto) 0.0 Abs Immat Gran (auto) 0.02 Absolute Neuts (auto) 4.0 Absolute Nucleated RBC 0.000 Nucleated RBC % (auto) 0.0 Sodium 131 L Potassium 4.5 Chloride 104 Carbon Dioxide 18 L Anion Gap 14 BUN 42 H Creatinine 3.20 H Estim Creat Clear Calc 27.6 Estimated GFR 17 POC Glucose 366 H* Random Glucose 417 H* Calcium 8.2 L Imaging Chest x-ray: Radiologist's impression: ITS Impressions Chest X-Ray 08/13/22 21:32 IMPRESSION: Changes of mild bronchitis. No infiltrate. Head CT 08/14/22 18:45 IMPRESSION: 1. No acute intracranial abnormality. No hemorrhage, mass, or infarction. 2. Redemonstration of subretinal hemorrhages on the right greater than left. No evidence of orbital mass. 3. Large amount of air within the venous system including within the cavernous sinuses, dural sinuses, and scattered throughout the extracranial veins. This finding is presumably related to recent venous access. Orbit CT 08/14/22 18:45 IMPRESSION: 1. No acute intracranial abnormality. No hemorrhage, mass, or infarction. 2. Redemonstration of subretinal hemorrhages on the right greater than left. No evidence of orbital mass. 3. Large amount of air within the venous system including within the cavernous sinuses, dural sinuses, and scattered throughout the extracranial veins. This finding is presumably related to recent venous access. Guidance Ultrasound 08/17/22 12:45 IMPRESSION: Placement of 14.5 Sinhala by 19 cm tunneled dual-lumen dialysis catheter via a right internal jugular approach with tip of catheter lying in the superior right atrium. The catheter is ready for use. Insertion Tunneled Catheter 08/17/22 12:45 IMPRESSION: Placement of 14.5 [place]hala by 19 cm tunneled dual-lumen dialysis catheter via a right internal jugular approach with tip of catheter lying in the superior right atrium. The catheter is ready for use. Discharge Plan Discharge Anticipated Discharge Date/Time: 08/20/22 10:01 Patient Disposition: Home, Self-Care Discharge Diagnosis: End stage renal disease requiring dialysis Acute myocardial infarction Referrals: [facility] [Outside] - 1 Day (GROUP HOME- A NURSE WILL CALL YOU TO SET UP FIRST VISIT) Abdon Beard MD [Primary Care Provider] - 1 Week Discharge Medications: New atorvastatin 40 mg Tablet 40 mg PO BEDTIME Qty: 90 0RF clopidogrel 75 mg Tablet 75 mg PO DAILY Qty: 90 0RF aspirin 81 mg Tablet,Delayed Release (Dr/Ec) 81 mg PO DAILY Qty: 90 0RF losartan 25 mg Tablet 25 mg PO DAILY Qty: 90 0RF Protocol: Hold for SBP< HOLD for SBP < : 90 omeprazole 40 mg Capsule,Delayed Release(Dr/Ec) 40 mg PO DAILY@0630 Qty: 90 0RF Continued prednisone 10 mg tablet See Taper PO 1XD Taper: Prednisone 40 mg daily for 7 Days and 0 Hour 30 mg daily for 7 Days and 0 Hour 20 mg daily for 7 Days and 0 Hour 10 mg daily for 7 Days and 0 Hour 5 mg daily for 7 Days docusate sodium 100 mg capsule 100 mg PO DAILY PRN (Reason: constipation) oxycodone 5 mg tablet 5 mg PO Q6H PRN (Reason: severe pain) carvedilol 12.5 mg tablet 12.5 mg PO BID Qty: 120 0RF torsemide 20 mg tablet 40 mg PO BID Qty: 180 0RF nifedipine 60 mg tablet extended release 24hr 60 mg PO DAILY Qty: 90 0RF ferrous fumarate [Ferrocite] 324 mg (106 mg iron) tablet 324 mg PO DAILY Qty: 90 0RF Discontinued hydralazine 25 mg tablet 75 mg PO TID Discharge Orders: Discharge Order (Routine); Ordered 08/20/22 Ordered By: Cheyenne Sears Diet: Low salt diet Activity on Discharge: As tolerated Stand Alone Forms: Patient Portal Discharge page Care Plan Goals: Read below Health Concerns: Read below Plan of Treatment: Read below Assessment: You were admitted to the hospital with evidence of heart attack treated with IV blood thinners and adjunct psychology faculty member evaluation who did not believe you are a candidate for any surgical procedures given your kidney function and non-adherent to medications. Treated with medications only for now. can be followed as outpatient for further work up. You were also noticed to have worsneing kidney function seen by director of business systems who started dialysis during the hospital stay with good tolerence. Blood pressure was significantly elevated on admission, better controlled with adjusting home medications. Discontinue Hydralazine Continue Nifedipine and Carvedilol Start Lisinopril To follow with dr Bhardwaj from cardiology as outpatient To follow with [place] [facility] for dialysis sessions TTS. Dr Bautista as director of business systems outpatient.
--- NOTE | 2022-08-20 10:22 | W.MHC.F2F ---
Service Date Service Date: 08/20/22 Encounter Date of encounter: 08/20/22 Reasons for Services Signs and symptoms assessed: legally blind uncontrolled HTN Reason for correction: medication treatment and teach disease management Reason for physical therapy: home safety and mobility Homebound: Leaving the home is medically contraindicated at this time without the asist of a device and/or another person due th the listed conditions above and below. Reason homebound: legally blind Certification: Based on the above findings, I certify that this patient is confined to the home and needs intermittent correction care, physical therapy and/or speech therapy, or continues to need occupational therapy. The patient is under my care, and I have initiated the establishment of the plan of care. The patient will be followed by a physician who will periodically review the plan of care. Time Spent With Patient Time: Total time managing care of this patient today ____ minutes.
--- NOTE | 2022-08-20 10:27 | MHC.CM.PN ---
DP: IMM DELIVERED PT HAS BEEN MEDICALLY CLEARED FOR DC TODAY WITH [facility] FOR NURSING AND NEW HD AT [facility]. MESSAGE LEFT FOR [facility] ON MACHINE CONFIRMING HER DC AND Sunday SOC, ARRIVAL TIME 6 AM. CM CONFIRMED WITH SISTER REJI THAT SHE WILL BE TRANSPORTING HER TO HD. [facility] UPDATED ON DC. SISTER WILL TRANSPORT HOME.
[2022-08-20 11:41] VITALS: BP 144/84; PULSE 88; RESP 18; TEMP 36.1; O2SAT 98
[2022-08-20 11:47] LABS: Glucose, Whole Blood 221 mg/dL (60-115)
--- NOTE | 2022-08-20 12:40 | P.PNCA_ITS ---
Subjective Subjective Date of Service: 08/20/22 Interval history: States that she feels okay. No new complaints. No chest pain or shortness of breath. She has been started on dialysis this admission. Review of Systems Review of Systems Yes all other systems are reviewed and are negative Constitutional: Reports as per HPI and Reports no additional constitutional complaints Eyes: Reports as per HPI and Denies no additional eye complaints Denies system reviewed and no additional complaints, except as documented and Reports as per HPI Cardiovascular: Reports as per HPI, Reports no additional cardiovascular complaints, Denies acrocyanosis, Denies cool extremities, Denies chest pain, Denies leg edema, Denies lightheadedness, Denies palpitations and Denies dyspnea Respiratory: Reports as per HPI, Denies no additional respiratory complaints and Denies dyspnea Gastrointestinal: Reports as per HPI and Denies no additional gastrointestinal complaints Genitourinary: Reports as per HPI Musculoskeletal: Reports no additional musculoskeletal complaints and Reports as per HPI Skin/Breast: Reports system reviewed and no additional complaints, except as docu Reports system reviewed and no additional complaints, except as documented and Reports as per HPI Psychiatric: Reports no additional psychiatric complaints and Reports as per HPI Endocrine: Reports no additional endocrine complaints, Reports as per HPI and Denies palpitations Hematologic/Lymphatic: Reports no additional hematologic/lymphatic complaints and Reports as per HPI Allergic/Immunologic: Reports no additional allergic/immunologic complaints and Reports as per HPI Physical Exam Vital Signs: Last Vital Signs Temp 96.9 F 08/20/22 11:41 Pulse 88 08/20/22 11:41 Resp 18 08/20/22 11:41 BP 144/84 H 08/20/22 11:41 Pulse Ox 98 08/20/22 11:41 O2 Del Method Room Air 08/20/22 11:41 O2 Flow Rate 2 08/20/22 07:21 BMI result Body Mass Index 33.5 Const General: comfortable and no acute distress Orientation/consciousness: patient oriented x3 HEENT Other: Unremarkable Head: Yes normal to inspection Neck Neck: Yes normal visual inspection Chest Chest palpation & inspection: normal inspection of the chest Resp Auscultation: clear to auscultation bilaterally Cardio Palpation: normal PMI Heart sounds: S1 normal heart sound present, S2 normal heart sound present, no gallops, no murmurs and no rubs GI Palpation (GI): Soft to palpation Back/Spine/Pelvis Other: unremarkable Skin General skin exam: no rashes or lesions noted Neuro General: patient oriented x3 Extrem General: Yes normal to inspection Psych Mental Status: mental status grossly normal Objective Labs and Meds 08/20/22 06:22 08/20/22 06:22 Lab results: Laboratory Results - last 24 hr 08/19/22 08/19/22 08/20/22 15:59 21:29 06:22 WBC 4.6 L RBC 3.50 L Hgb 9.5 L Hct 31.4 L MCV 89.7 MCH 27.1 MCHC 30.3 L RDW 20.8 H Plt Count 120 L MPV 12.9 H Immature Gran % (Auto) 0.4 Neut % (Auto) 87.8 H Lymph % (Auto) 4.4 L [place] % (Auto) 7.4 Eos % (Auto) 0.0 Baso % (Auto) 0.0 Lymph # (Auto) 0.2 L [place] # (Auto) 0.3 Eos # (Auto) 0.0 Baso # (Auto) 0.0 Abs Immat Gran (auto) 0.02 Absolute Neuts (auto) 4.0 Absolute Nucleated RBC 0.000 Nucleated RBC % (auto) 0.0 Sodium Potassium Chloride Carbon Dioxide Anion Gap BUN Creatinine Estim Creat Clear Calc Estimated GFR POC Glucose 281 H 322 H Random Glucose Calcium 08/20/22 08/20/22 08/20/22 06:22 07:24 11:44 WBC RBC Hgb Hct MCV MCH MCHC RDW Plt Count MPV Immature Gran % (Auto) Neut % (Auto) Lymph % (Auto) [place] % (Auto) Eos % (Auto) Baso % (Auto) Lymph # (Auto) [place] # (Auto) Eos # (Auto) Baso # (Auto) Abs Immat Gran (auto) Absolute Neuts (auto) Absolute Nucleated RBC Nucleated RBC % (auto) Sodium 131 L Potassium 4.5 Chloride 104 Carbon Dioxide 18 L Anion Gap 14 BUN 42 H Creatinine 3.20 H Estim Creat Clear Calc 27.6 Estimated GFR 17 POC Glucose 366 H* 221 H Random Glucose 417 H* Calcium 8.2 L Progress Note: A&P Assessment and plan (1) NSTEMI (non-ST elevated myocardial infarction): Status: Acute (2) Hypertensive emergency: Status: Resolved (3) Cardiomyopathy: Status: Acute (4) ESRD needing dialysis: Status: Acute Plan Echocardiogram with LVEF of 30-35%. Basal inferior/mid inferior akinesis. Small to moderate circumferential effusion without any hemodynamic compromise. Based on troponins, demand related elevation suspected. She has got absolutely no chest pain. Overall, uncontrolled hypertension, poor compliance, lack of insight. Again had a discussion with her about her overall health or lack there of. It seems that she probably understands but not sure how much she will follow through. Explain to her that it is absolutely important that she takes all her blood pressure medications. With regard to further cardiac workup, if she is reliable and takes medications, then could consider diagnostic catheterization. Otherwise, PCI without compliance will lead to InStent thrombosis, which is a major risk in someone like her. I advised her that we can arrange an outpatient appointment if she will follow- up with us . Will coordinate the same. Diabetes management. Discussed with Dr. Sears. Time Spent With Patient Time: Total time managing care of this patient today ____ minutes. Progress Note: Quality Stroke Does the patient have a stroke diagnosis?: No Procedures Date of Service Date of Service: 08/20/22
== END 2022-08-20 12:50 | disposition home health service (06) | DRG 280 ==
LOC: HO.ED 08-14 06:15 → HO.EDOVER 08-14 10:53 → HO.IMC 08-15 15:05
PROVIDERS: Internal Medicine; Internal Medicine Nephrology; Radiology Diagnostic Radiology; Admitting Provider Student in an Organized Health Care Education/Training Program; Emergency Provider Emergency Medicine Emergency Medical Services; PCP Internal Medicine; Visit Provider Student in an Organized Health Care Education/Training Program
PROC: 0JH63XZ Insertion of Tunneled Vascular Access Device into Chest Subcutaneous Tissue and Fascia, Percutaneous Approach (ICD-10-PCS; principal; 2022-08-17 10:30)
DX: I16.9 Hypertensive crisis, unspecified (principal); N18.6 End stage renal disease; I21.4 Non-ST elevation (NSTEMI) myocardial infarction; I50.22 Chronic systolic (congestive) heart failure; E87.20 Acidosis, unspecified; E11.52 Type 2 diabetes mellitus with diabetic peripheral angiopathy with gangrene; I42.9 Cardiomyopathy, unspecified; E87.1 Hypo-osmolality and hyponatremia; N17.9 Acute kidney failure, unspecified; I27.20 Pulmonary hypertension, unspecified; I08.1 Rheumatic disorders of both mitral and tricuspid valves; E11.319 Type 2 diabetes mellitus with unspecified diabetic retinopathy without macular edema; E87.5 Hyperkalemia; I13.2 Hypertensive heart and chronic kidney disease with heart failure and with stage 5 chronic kidney disease, or end stage renal disease; E11.621 Type 2 diabetes mellitus with foot ulcer; L97.521 Non-pressure chronic ulcer of other part of left foot limited to breakdown of skin; Z91.148 Patient's other noncompliance with medication regimen for other reason; E87.70 Fluid overload, unspecified; E11.22 Type 2 diabetes mellitus with diabetic chronic kidney disease; Z99.2 Dependence on renal dialysis; Z79.4 Long term (current) use of insulin; Z79.52 Long term (current) use of systemic steroids; Z79.899 Other long term (current) drug therapy
CPT/HCPCS: 36415; 36558; 70450; 70480; 71045; 76937; 80048; 80076; 81025; 82947; 83036; 83540; 83605; 83690; 84484; 85025; 85027; 85610; 85730; 86704; 86706; 87040; 87340; 90999; 93005; 93308; 97161; 97530; 99152; 99153; 99285; C1750; C1769; J1170; J1200; J1643; J1650; J1940; J2405; Q9957

== ENCOUNTER 2022-08-21 01:10 | Observation (INO) | payer OTHER, SELFPAY ==
--- NOTE | ~2022-08-21 | CT_ITS ---
EXAMINATION: CT ABDOMEN AND PELVIS WITHOUT CONTRAST CLINICAL INFORMATION: Lower abdominal pain. On dialysis COMPARISON: None available. TECHNIQUE: Multidetector volumetric imaging was performed from the superior aspect of the liver through the pubic symphysis. Sagittal and coronal reformatted images were obtained on the technologist's workstation. This CT examination was performed using dose optimization techniques as appropriate, variously including the following: *Automated exposure control *Adjustment of mA and/or kV according to patient size (this includes techniques or standardized protocols for targeted exams where dose is matched to indication/reason for exam; i.e. extremities or head) *Use of iterative reconstruction technique DLP: 731 mGy-cm FINDINGS: LUNG BASES: The lung bases are clear. A small right pleural effusion. LIVER, GALLBLADDER, AND BILIARY TREE: The liver is normal in size, shape, and attenuation. No focal hepatic lesion or biliary ductal dilatation is present. The gallbladder has been surgically removed. PANCREAS: Unremarkable. SPLEEN: Unremarkable. ADRENAL GLANDS: Unremarkable. KIDNEYS AND URETERS: The kidneys are normal in size, shape, and attenuation. No hydronephrosis, hydroureter, or calculi seen. No perinephric stranding. There are punctate calcifications seen in the renal hilum bilaterally likely small radiopaque calculi. There is no caliectasis or hydronephrosis. BLADDER: Unremarkable. GASTROINTESTINAL TRACT: The stomach is significant distended with recently ingested food. The small bowel loops are normal caliber. The colon is prominent with scattered stool and gas most prominent in the ascending and descending colon are noted in the sigmoid colon is noted. No free air or free fluid. ABDOMINAL WALL: There is diffuse abdominal wall edema and haziness. LYMPH NODES: There are multiple retroperitoneal small to moderate-sized lymph nodes. Largest left para-aortic lymph node measures 1.6 cm on axial image 42/3. VASCULAR: Unremarkable. PELVIC VISCERA: The uterus is midline. There is no free fluid. There are multiple bilateral inguinal lymph nodes. Largest right inguinal lymph node measures 1.5 cm and left inguinal lymph node measures 1.5 cm. OSSEOUS STRUCTURES: Mild degenerative disc changes with endplate sclerosis L4 vertebra at the L4-L5 disc level. Rest the visualized lumbosacral spine is unremarkable. CT/CT abdomen pelvis wo IV con IMPRESSION: Moderate constipation without obstruction. Moderate ascites with distention of stomach from recently ingested food. Anasarca. Multiple tiny radiopaque renal calculi but no caliectasis or hydronephrosis. Patient's lower abdominal pain is likely from constipation. Small right pleural effusion Fleischner guidelines were followed.
--- NOTE | ~2022-08-21 | XR_ITS ---
EXAMINATION: XR CHEST CLINICAL INFORMATION: Chest pain COMPARISON: None available. TECHNIQUE: Frontal view of the chest was obtained. FINDINGS: The lungs are somewhat expanded and clear of acute process. Heart size and pulmonary vascularity is normal. There is a right central venous catheter its tip in the distal SVC. No gross bony abnormality seen. XR/XR chest 1V IMPRESSION: Clear lungs. Right jugular central venous catheter tip is in distal SVC.
--- NOTE | ~2022-08-21 | FL_ITS ---
EXAMINATION: XR FLUOROSCOPY CLINICAL INFORMATION: Burning and pain at permacath site COMPARISON: None available. TECHNIQUE: The existing permacath was aspirated. Approximately 5 mL of Omnipaque 300 was injected under fluoroscopic guidance through one of the ports. This flushed with saline. Port was instilled with 1.6 mL heparin 1000 unit per mL solution. FINDINGS: There is a right jugular permacath with tip projecting over the cavoatrial junction. There is no active bleeding seen at the permacath site at this time. The permacath is in satisfactory position and patent. The cardiac silhouette is enlarged. FLUOROSCOPY TIME: 0.1 minute DOSE AREA PRODUCT: 2.9 fuller per centimeter squared. 3 saved fluoroscopic images. FL/FL fluoroscopy <1hr IMPRESSION: Satisfactory appearance of right internal jugular permacath.
[2022-08-21 01:18] VITALS: BP 142/78; PULSE 97; RESP 19; TEMP 37.1; O2SAT 98; BMI 36.4
[2022-08-21 01:24] LABS: Glucose, Whole Blood > 600 mg/dL (60-115)
[2022-08-21 01:24] LABS: Glucose, Whole Blood > 600 mg/dL (60-115)
--- NOTE | 2022-08-21 01:25 | MHC.EDTECH ---
poc done, result hi . poc repeated, result hi for a second time. glucometer QC-ed. aware
--- NOTE | 2022-08-21 01:34 | ECG_ITS ---
Test Reason : ABDOMINAL PAIN Blood Pressure : / mmHG Vent. Rate : 095 BPM Atrial Rate : 095 BPM P-R Int : 146 ms QRS Dur : 144 ms QT Int : 398 ms P-R-T Axes : 070 -16 167 degrees QTc Int : 500 ms Normal sinus rhythm Possible Left atrial enlargement Right bundle branch block T wave abnormality, consider lateral ischemia Abnormal ECG When compared with ECG of 13-AUG-2022 20:39, Inverted T waves have replaced nonspecific T wave abnormality in Anterolateral leads Referred By: Sylvia Saxena Electronically Signed By:JASKARAN COOL
[2022-08-21 01:45] LABS: MANUAL DIFF FLAG NO
[2022-08-21 01:47] LABS: Hematocrit 29.1 % (37.0-47.0); Hemoglobin 8.9 g/dl (12.0-16.0); Imm Gran Abs Auto 0.02 X10*3/uL (0.00-0.03); Imm Gran Pct Auto 0.2 % (0.0-0.4); Lymphocytes Absolute Auto 0.2 X10*3/uL (1.2-4.9); Lymphocytes Percent Auto 2.6 % (20-40); Mean Corpuscular HGB Conc 30.6 g/dl (31.0-35.0); Mean Corpuscular Hemoglobin 26.6 pg (27.0-33.0); Mean Corpuscular Volume 86.9 fL (80.0-98.0); Mean Platelet Volume 12.1 fL (9.4-12.3); Monocytes Absolute Auto 0.8 X10*3/uL (0.1-1.2); Monocytes Percent Auto 9.6 % (2-11); Neutrophils Absolute Auto 7.1 x10*3/uL (2.0-8.3); Neutrophils Percent Auto 87.6 % (45-73); Platelet Count 156 X10*3/uL (160-400); Red Blood Count 3.35 X10*6/uL (4.20-5.50); Red Cell Distribution Width 20.3 % (11.0-16.0); White Blood Count 8.1 X10*3/uL (4.8-10.8)
[2022-08-21 01:53] LABS: VBG Base Excess -8.8 mmol/L; VBG HCO3 14 mmol/L (22-26); VBG pCO2 24 mmHg; VBG pH 7.37 (7.32-7.43); VBG pO2 155 mmHg
[2022-08-21 01:54] LABS: Venous Blood Gas Refer to POC result
[2022-08-21] MEDS: Insulin Regular, Human 100 UNIT/ML 3 ML VIAL 10 UNIT IVPUSH ×2 (02:02→05:11)
[2022-08-21] MEDS: HYDROmorphone HCl 0.5 MG/0.5 ML SYRINGE IVPUSH ×3 (02:03→21:10)
--- NOTE | 2022-08-21 02:05 | ED.ABDPAIN ---
HPI - Abdominal Pain General Chief Complaint: Abdominal Pain Stated Complaint: ABD PAIN, HIGH BS ,BLEEDING FROM PERMACATH Related Data Home Medications Medication Instructions Recorded Confirmed docusate sodium 100 mg capsule 100 mg PO DAILY PRN constipation 08/13/22 08/13/22 oxycodone 5 mg tablet 5 mg PO Q6H PRN severe pain 08/13/22 08/13/22 prednisone 10 mg tablet See Taper PO 1XD 08/13/22 08/13/22 Previous Rx's Medication Instructions Recorded aspirin 81 mg tablet,delayed 81 mg PO DAILY #90 tabs 08/20/22 release atorvastatin 40 mg tablet 40 mg PO BEDTIME #90 tabs 08/20/22 carvedilol 12.5 mg tablet 12.5 mg PO BID #120 tabs 08/20/22 clopidogrel 75 mg tablet 75 mg PO DAILY #90 tabs 08/20/22 ferrous fumarate 324 mg (106 mg 324 mg PO DAILY #90 tabs 08/20/22 iron) tablet (Ferrocite) glipizide 2.5 mg tablet, extended 2.5 mg PO DAILY #90 tabs 08/20/22 release 24 hr losartan 25 mg tablet 25 mg PO DAILY #90 tabs 08/20/22 nifedipine 60 mg tablet,extended 60 mg PO DAILY #90 tabs 08/20/22 release 24 hr omeprazole 40 mg capsule,delayed 40 mg PO DAILY@0630 #90 caps 08/20/22 release torsemide 20 mg tablet 40 mg PO BID #180 tabs 08/20/22 Allergies Allergy/AdvReac Type Severity Reaction Status Date / Time morphine [MORPHINE] Allergy Intermediate Itching Verified 08/21/22 01:18 azithromycin [From Zithromax] Allergy Hives Verified 08/21/22 01:18 gabapentin Allergy Facial Verified 08/21/22 01:18 Swelling tramadol Allergy Facial Verified 08/21/22 01:18 Swelling vancomycin Allergy Hives Verified 08/21/22 01:18 [facility] Past Medical History Medical History (Updated 08/21/22 @ 05:17 by Sylvia Saxena MD) Abnormal finding on echocardiogram Acute dyspnea Acute on chronic systolic and diastolic heart failure, NYHA class 3 Acute worsening of stage 3 chronic kidney disease MYNOR (acute kidney injury) Anemia Anemia in chronic kidney disease (CKD) Asthma Back pain Blind right eye Bone infection Cellulitis Cellulitis and abscess of foot delivery delivered Chest pain CHF (congestive heart failure) (~06/07/22) CKD (chronic kidney disease) CKD (chronic kidney disease) CKD (chronic kidney disease) stage 4, GFR 15-29 ml/min Depression with anxiety Diabetes Diabetic retinopathy DM foot ulcer Elevated troponin Essential hypertension Fever Generalized edema HFrEF (heart failure with reduced ejection fraction) HTN (hypertension) Hypertension (~06/10/22) Metabolic acidosis Migraine Osteomyelitis PAD (peripheral artery disease) Pleural effusion test positive test positive Sepsis Severe anemia Tachycardia Type 2 diabetes mellitus with hyperglycemia, with long-term current use of insulin Surgical History History of transmetatarsal amputation of foot S/P transmetatarsal amputation of foot Family History Family History Mother Coronary artery disease Myocardial infarction Stroke Diabetes mellitus Father Myocardial infarction Social History Social History Household Members: Family Household Members Other:: Sister, [id number], nephew Housing: Apartment Do you presently have visiting nurse or other home services: No Alcohol intake: never Patient Tobacco Use Status: Never used Tobacco e-Cigarette/Vaping Use: Never Used Second Hand Smoke Exposure: No Advance Directives: No Advance Directives Information Provided: Yes Advance Directives Date on File: 03/08/20 service: No Current occupational status: unemployed and disabled Gender identity: Female Physical Exam ED Vital Signs: Vital Signs - 24 hr 08/21/22 01:18 Temperature 98.7 F Pulse Rate 97 Respiratory Rate 19 Blood Pressure 142/78 H Pulse Oximetry 98 Oxygen Delivery Method Room Air BMI result Body Mass Index 36.4 Medical Decision Making Medical Decision Making MDM Narrative: patient is 32 years old positive history of end-stage renal disease. Long history of diabetes. Now also have abdominal pain. CT scan of the abdomen showed no evidence of obstruction no evidence of appendicitis positive evidence for constipation. Patient's pH was 7.4 no evidence for DKA. Patient's sugar was extremely elevated at Seven hundred sixty-seven. Insulin was given. Patient's sugar monitor. Coming down now down to below 600. Sodium is low but pole is likely secondary to a pseudo hyponatremia. Patient's case discussed with the hospitalist team. No IV fluid was given as patient has end-stage renal disease. Patient is currently in stable condition. Will admit patient for further evaluation. Differential Diagnosis Differential Diagnoses: The differential diagnosis associated with the presentation includes Appendicitis, obstruction, abscess, probation, DKA, hyperglycemia Consult Healthcare Provider Management of the patient was discussed with: Hospitalist Lab Data MDM Lab Attestation statement: I reviewed the patient's lab results. 08/21/22 01:39 08/21/22 01:39 Labs: Lab Results 08/21/22 08/21/22 08/21/22 Range/Units 01:18 01:20 01:39 WBC 8.1 (4.8-10.8) X10*3/uL RBC 3.35 L (4.20-5.50) X10*6/uL Hgb 8.9 L (12.0-16.0) g/dl Hct 29.1 L (37.0-47.0) % MCV 86.9 (80.0-98.0) fL MCH 26.6 L (27.0-33.0) pg MCHC 30.6 L (31.0-35.0) g/dl RDW 20.3 H (11.0-16.0) % Plt Count 156 L D (160-400) X10*3/uL MPV 12.1 (9.4-12.3) fL Immature Gran % (Auto) 0.2 (0.0-0.4) % Neut % (Auto) 87.6 H (45-73) % Lymph % (Auto) 2.6 L (20-40) % Cowley % (Auto) 9.6 (2-11) % Eos % (Auto) 0.0 (0-4) % Baso % (Auto) 0.0 (0-2) % Lymph # (Auto) 0.2 L (1.2-4.9) X10*3/uL [place] # (Auto) 0.8 (0.1-1.2) X10*3/uL Eos # (Auto) 0.0 (0.0-0.4) X10*3/uL Baso # (Auto) 0.0 (0.0-0.2) X10*3/uL Abs Immat Gran (auto) 0.02 (0.00-0.03) X10*3/uL Absolute Neuts (auto) 7.1 (2.0-8.3) x10*3/uL Absolute Nucleated RBC 0.000 (0.0-0.012) X10*3/uL Nucleated RBC % (auto) 0.0 (0.0-0.2) /100WBC VBG pH (7.32-7.43) VBG pCO2 mmHg VBG pO2 mmHg VBG HCO3 (22-26) mmol/L VBG O2 Saturation % VBG Base Excess mmol/L Sodium (135-145) mmol/L Potassium (3.3-5.1) mmol/L Chloride (96-108) mmol/L Carbon Dioxide (22-29) mmol/L Anion Gap (12-20) BUN (9-16) mg/dL Creatinine (0.5-1.4) mg/dL Estim Creat Clear Calc Estimated GFR POC Glucose > 600 H* > 600 H* (60-115) mg/dL Random Glucose (60-115) mg/dL Calcium (8.4-10.2) mg/dL Phosphorus (2.7-4.5) mg/dL Magnesium (1.6-2.6) mg/dL Total Bilirubin (0.0-1.0) mg/dL Direct Bilirubin (0.0-0.5) mg/dL AST (5-31) U/L ALT (0-31) U/L Alkaline Phosphatase (39-117) U/L Total Protein (6.5-8.0) g/dL Albumin (3.5-5.0) g/dL Lipase (8-78) U/L Beta HCG, Quant mIU/mL B-Hydroxybutyrate (0.02-0.027) mmol/L 08/21/22 08/21/22 08/21/22 Range/Units 01:39 01:39 01:44 WBC (4.8-10.8) X10*3/uL RBC (4.20-5.50) X10*6/uL Hgb (12.0-16.0) g/dl Hct (37.0-47.0) % MCV (80.0-98.0) fL MCH (27.0-33.0) pg MCHC (31.0-35.0) g/dl RDW (11.0-16.0) % Plt Count (160-400) X10*3/uL MPV (9.4-12.3) fL Immature Gran % (Auto) (0.0-0.4) % Neut % (Auto) (45-73) % Lymph % (Auto) (20-40) % Cowley % (Auto) (2-11) % Eos % (Auto) (0-4) % Baso % (Auto) (0-2) % Lymph # (Auto) (1.2-4.9) X10*3/uL Cowley # (Auto) (0.1-1.2) X10*3/uL Eos # (Auto) (0.0-0.4) X10*3/uL Baso # (Auto) (0.0-0.2) X10*3/uL Abs Immat Gran (auto) (0.00-0.03) X10*3/uL Absolute Neuts (auto) (2.0-8.3) x10*3/uL Absolute Nucleated RBC (0.0-0.012) X10*3/uL Nucleated RBC % (auto) (0.0-0.2) /100WBC VBG pH 7.37 (7.32-7.43) VBG pCO2 24 mmHg VBG pO2 155 mmHg VBG HCO3 14 L (22-26) mmol/L VBG O2 Saturation 100.0 % VBG Base Excess -8.8 mmol/L Sodium 127 L (135-145) mmol/L Potassium 4.7 (3.3-5.1) mmol/L Chloride 101 (96-108) mmol/L Carbon Dioxide 14 L (22-29) mmol/L Anion Gap 17 (12-20) BUN 54 H (9-16) mg/dL Creatinine 4.10 H* (0.5-1.4) mg/dL Estim Creat Clear Calc 23.3 Estimated GFR 12 POC Glucose (60-115) mg/dL Random Glucose 767 H* (60-115) mg/dL Calcium 7.7 L D (8.4-10.2) mg/dL Phosphorus 4.8 H (2.7-4.5) mg/dL Magnesium 2.3 (1.6-2.6) mg/dL Total Bilirubin 0.8 (0.0-1.0) mg/dL Direct Bilirubin 0.2 (0.0-0.5) mg/dL AST 29 (5-31) U/L ALT 23 (0-31) U/L Alkaline Phosphatase 111 (39-117) U/L Total Protein 6.7 (6.5-8.0) g/dL Albumin 3.0 L (3.5-5.0) g/dL Lipase 72 (8-78) U/L Beta HCG, Quant < 2 mIU/mL B-Hydroxybutyrate 0.08 H (0.02-0.027) mmol/L 08/21/22 08/21/22 Range/Units 03:12 04:59 WBC (4.8-10.8) X10*3/uL RBC (4.20-5.50) X10*6/uL Hgb (12.0-16.0) g/dl Hct (37.0-47.0) % MCV (80.0-98.0) fL MCH (27.0-33.0) pg MCHC (31.0-35.0) g/dl RDW (11.0-16.0) % Plt Count (160-400) X10*3/uL MPV (9.4-12.3) fL Immature Gran % (Auto) (0.0-0.4) % Neut % (Auto) (45-73) % Lymph % (Auto) (20-40) % Cowley % (Auto) (2-11) % Eos % (Auto) (0-4) % Baso % (Auto) (0-2) % Lymph # (Auto) (1.2-4.9) X10*3/uL [place] # (Auto) (0.1-1.2) X10*3/uL Eos # (Auto) (0.0-0.4) X10*3/uL Baso # (Auto) (0.0-0.2) X10*3/uL Abs Immat Gran (auto) (0.00-0.03) X10*3/uL Absolute Neuts (auto) (2.0-8.3) x10*3/uL Absolute Nucleated RBC (0.0-0.012) X10*3/uL Nucleated RBC % (auto) (0.0-0.2) /100WBC VBG pH (7.32-7.43) VBG pCO2 mmHg VBG pO2 mmHg VBG HCO3 (22-26) mmol/L VBG O2 Saturation % VBG Base Excess mmol/L Sodium (135-145) mmol/L Potassium (3.3-5.1) mmol/L Chloride (96-108) mmol/L Carbon Dioxide (22-29) mmol/L Anion Gap (12-20) BUN (9-16) mg/dL Creatinine (0.5-1.4) mg/dL Estim Creat Clear Calc Estimated GFR POC Glucose 597 H* 560 H* (60-115) mg/dL Random Glucose (60-115) mg/dL Calcium (8.4-10.2) mg/dL Phosphorus (2.7-4.5) mg/dL Magnesium (1.6-2.6) mg/dL Total Bilirubin (0.0-1.0) mg/dL Direct Bilirubin (0.0-0.5) mg/dL AST (5-31) U/L ALT (0-31) U/L Alkaline Phosphatase (39-117) U/L Total Protein (6.5-8.0) g/dL Albumin (3.5-5.0) g/dL Lipase (8-78) U/L Beta HCG, Quant mIU/mL B-Hydroxybutyrate (0.02-0.027) mmol/L ABG Data ABG Results: VBG showed no acidosis Attestation ABG: I personally reviewed and interpreted this ABG as follows: Independent Interpretation I performed an independent interpretation of an: EKG and Plain X-Ray Interpretation: my interpretation patient's EKG showed an sinus pattern heart rate about 100 with a right bundle branch block no gross changes chest x-ray showed no pneumonia no pneumothorax Radiology Impression Discussion of test interpretation with radiology: I have reviewed the radiologist's reading. External Record Review External record reviewed: Inpatient record Chronic Conditions Patient?s care impacted by: Diabetes and Hypertension Medications Administered Discontinued Medications Generic Name Dose Route Start Last Admin Trade Name Freq PRN Reason Stop Dose Admin Hydromorphone HCl 0.5 mg 08/21/22 01:42 08/21/22 02:03 Hydromorphone Hcl 0.5 Mg/0.5 Ml Syringe IVPUSH 08/21/22 01:43 0.5 mg ONCE ONE Administration Protocol Insulin Human Regular 10 unit 08/21/22 01:37 08/21/22 02:02 Insulin Regular, Human 100 Unit/Ml 3 Ml Vial 0.1 unit/kg (10 unit) 08/21/22 01:38 10 unit IVPUSH Administration ONCE ONE Insulin Human Regular 10 unit 08/21/22 05:06 08/21/22 05:11 Insulin Regular, Human 100 Unit/Ml 3 Ml Vial 0.1 unit/kg (10 unit) 08/21/22 05:07 10 unit IVPUSH Administration ONCE ONE Critical Care Time Critical Care Time Total Critical Care Time: 40 Attestation: I have personally provided 40 minutes of critical care time exclusive of time spent on separately billable procedures. Time includes review of lab data, radiology results, discussion with consultants, and monitoring for potential decompensation. Interventions were performed as documented above Discharge Plan Discharge Clinical Impression: Hyperglycemia, End-stage renal disease (ESRD) Patient Disposition: Admitted As Inpatient Prescriptions: No Action prednisone 10 mg tablet See Taper PO 1XD Taper: Prednisone 40 mg daily for 7 Days and 0 Hour 30 mg daily for 7 Days and 0 Hour 20 mg daily for 7 Days and 0 Hour 10 mg daily for 7 Days and 0 Hour 5 mg daily for 7 Days docusate sodium 100 mg capsule 100 mg PO DAILY PRN (Reason: constipation) oxycodone 5 mg tablet 5 mg PO Q6H PRN (Reason: severe pain) atorvastatin 40 mg Tablet 40 mg PO BEDTIME Qty: 90 0RF clopidogrel 75 mg Tablet 75 mg PO DAILY Qty: 90 0RF aspirin 81 mg Tablet,Delayed Release (Dr/Ec) 81 mg PO DAILY Qty: 90 0RF losartan 25 mg Tablet 25 mg PO DAILY Qty: 90 0RF Protocol: Hold for SBP< HOLD for SBP < : 90 omeprazole 40 mg Capsule,Delayed Release(Dr/Ec) 40 mg PO DAILY@0630 Qty: 90 0RF carvedilol 12.5 mg tablet 12.5 mg PO BID Qty: 120 0RF torsemide 20 mg tablet 40 mg PO BID Qty: 180 0RF nifedipine 60 mg tablet extended release 24hr 60 mg PO DAILY Qty: 90 0RF ferrous fumarate [Ferrocite] 324 mg (106 mg iron) tablet 324 mg PO DAILY Qty: 90 0RF glipizide 2.5 mg tablet extended release 24hr 2.5 mg PO DAILY Qty: 90 0RF
[2022-08-21 02:17] LABS: HCG Quantitative < 2 mIU/mL
[2022-08-21 02:23] LABS: Alanine Aminotransferase 23 U/L (0-31); Alkaline Phosphatase 111 U/L (39-117); Anion Gap 17 (12-20); Aspartate Amino Transferase 29 U/L (5-31); Beta-Hydroxybutyrate 0.08 mmol/L (0.02-0.027); Bilirubin Direct 0.2 mg/dL (0.0-0.5); Bilirubin Total 0.8 mg/dL (0.0-1.0); Blood Urea Nitrogen 54 mg/dL (9-16); Calcium 7.7 mg/dL (8.4-10.2); Carbon Dioxide 14 mmol/L (22-29); Chloride 101 mmol/L (96-108); Creatinine Clr Calc Pharmacy 23.3; Estimated Glomerular Filt Rate 12; Glucose Random 767 mg/dL (60-115); Lipase 72 U/L (8-78); Magnesium 2.3 mg/dL (1.6-2.6); Phosphorus 4.8 mg/dL (2.7-4.5); Potassium 4.7 mmol/L (3.3-5.1); Sodium 127 mmol/L (135-145); Total Protein 6.7 g/dL (6.5-8.0)
[2022-08-21 03:16] LABS: Glucose, Whole Blood 597 mg/dL (60-115)
[2022-08-21 05:04] LABS: Glucose, Whole Blood 560 mg/dL (60-115)
--- NOTE | 2022-08-21 05:25 | P.HPHOSP_ITS ---
History of Present Illness Date of Service: 08/21/22 Chief Complaint: Abdominal Pain This is a 31-year-old female with pertinent history of essential hypertension, congestive heart failure with reduced ejection fraction, insulin-dependent type 2 diabetes mellitus with diabetic retinopathy, mood disorder, PAD status post transmetatarsal amputation of foot, ESRD on HD who presents to the emergency department for evaluation of generalized body pain. Patient was recently admitted and discharged on 08/20 with NSTEMI. She was initiated on IV heparin. Cardiology deemed that she is not a good candidate for angiogram and patient was discharged after medical optimization. Patient states that after being discharg ed she had generalized body pain, mainly abdominal discomfort. She called EMS and the blood sugar was found to be significantly elevated and she was brought to the hospital. Patient does not remember what medicine she took after discharge. She denies fever, chills, chest discomfort, palpitations, shortness of breath, changes in bowel habits In the emergency department, patient's blood sugar was found to be in the 700s Review of Systems Constitutional: Constitutional: Reports fatigue, Reports lethargy and Reports malaise Cardiovascular: Cardiovascular: Reports no additional cardiovascular complaints Respiratory: Respiratory: Reports no additional respiratory complaints Gastrointestinal: Gastrointestinal: Reports abdominal pain Endocrine: Endocrine: Reports fatigue [facility] Medical History Abnormal finding on echocardiogram Acute dyspnea Acute on chronic systolic and diastolic heart failure, NYHA class 3 Acute worsening of stage 3 chronic kidney disease MYNOR (acute kidney injury) Anemia Anemia in chronic kidney disease (CKD) Asthma Back pain Blind right eye Bone infection Cellulitis Cellulitis and abscess of foot delivery delivered Chest pain CHF (congestive heart failure) (~06/07/22) CKD (chronic kidney disease) CKD (chronic kidney disease) CKD (chronic kidney disease) stage 4, GFR 15-29 ml/min Depression with anxiety Diabetes Diabetic retinopathy DM foot ulcer Elevated troponin Essential hypertension Fever Generalized edema HFrEF (heart failure with reduced ejection fraction) HTN (hypertension) Hypertension (~06/10/22) Metabolic acidosis Migraine Osteomyelitis PAD (peripheral artery disease) Pleural effusion test positive test positive Sepsis Severe anemia Tachycardia Type 2 diabetes mellitus with hyperglycemia, with long-term current use of insulin Family History Mother Coronary artery disease Myocardial infarction Stroke Diabetes mellitus Father Myocardial infarction Surgical History History of transmetatarsal amputation of foot S/P transmetatarsal amputation of foot Social History Household Members: Family Household Members Other:: Sister, Rgdarii-[id number], nephew Housing: Apartment Do you presently have visiting nurse or other home services: No Alcohol intake: never Patient Tobacco Use Status: Never used Tobacco e-Cigarette/Vaping Use: Never Used Second Hand Smoke Exposure: No Advance Directives: No Advance Directives Information Provided: Yes Advance Directives Date on File: 03/08/20 service: No Current occupational status: unemployed and disabled Gender identity: Female Meds Allergies Allergy/AdvReac Type Severity Reaction Status Date / Time morphine [MORPHINE] Allergy Intermediate Itching Verified 08/21/22 01:18 azithromycin [From Zithromax] Allergy Hives Verified 08/21/22 01:18 gabapentin Allergy Facial Verified 08/21/22 01:18 Swelling tramadol Allergy Facial Verified 08/21/22 01:18 Swelling vancomycin Allergy Hives Verified 08/21/22 01:18 Active Medications: Current Medications Insulin Glargine (Insulin Glargine,Hum.Rec.Anlog 100 Unit/Ml 10 Ml Vial) 20 unit SUBCUT BEDTIME [facility] Pharmacy Consult (Consult Rx Perform Med Rec) 1 each MISCELLANE ONCE PRN PRN Reason: Consult order Home Medications Medication Instructions Recorded Confirmed Last Taken Type docusate sodium 100 mg capsule 100 mg PO DAILY PRN constipation 08/13/22 08/13/22 Unknown History oxycodone 5 mg tablet 5 mg PO Q6H PRN severe pain 08/13/22 08/13/22 Unknown History prednisone 10 mg tablet See Taper PO 1XD 08/13/22 08/13/22 Unknown History Physical Exam Vital Signs and Narrative: Vital Signs: Last Vital Signs Temp 98.7 F 08/21/22 01:18 Pulse 97 08/21/22 01:18 Resp 19 08/21/22 01:18 BP 142/78 H 08/21/22 01:18 Pulse Ox 98 08/21/22 01:18 O2 Del Method Room Air 08/21/22 01:18 BMI result Body Mass Index 36.4 Middle-aged female lying in bed in no distress Neck supple, no JVD Regular rate and rhythm, S1-S2 heard Regular breath sounds bilaterally, no wheezing or crackles appreciated Abdomen soft nontender, no guarding, no rigidity Patient is awake, alert and oriented to self, place, time and person ; no focal motor deficit Psych: Normal mood Extremity: Bilateral transmetatarsal amputation Results Labs 08/21/22 01:39 08/21/22 01:39 Labs: Laboratory Results - last 24 hr 08/21/22 08/21/22 08/21/22 01:18 01:20 01:39 MCV 86.9 MCH 26.6 L MCHC 30.6 L RDW 20.3 H Plt Count 156 L D MPV 12.1 Immature Gran % (Auto) 0.2 Neut % (Auto) 87.6 H Lymph % (Auto) 2.6 L [place] % (Auto) 9.6 Eos % (Auto) 0.0 Baso % (Auto) 0.0 Lymph # (Auto) 0.2 L [place] # (Auto) 0.8 Eos # (Auto) 0.0 Baso # (Auto) 0.0 Abs Immat Gran (auto) 0.02 Absolute Neuts (auto) 7.1 Absolute Nucleated RBC 0.000 Nucleated RBC % (auto) 0.0 VBG pH VBG pCO2 VBG pO2 VBG HCO3 VBG O2 Saturation VBG Base Excess Anion Gap Estim Creat Clear Calc Estimated GFR POC Glucose > 600 H* > 600 H* Random Glucose Calcium Phosphorus Magnesium Total Bilirubin Direct Bilirubin AST ALT Alkaline Phosphatase Total Protein Albumin Lipase Beta HCG, Quant B-Hydroxybutyrate 08/21/22 08/21/22 08/21/22 01:39 01:39 01:44 MCV MCH MCHC RDW Plt Count MPV Immature Gran % (Auto) Neut % (Auto) Lymph % (Auto) [place] % (Auto) Eos % (Auto) Baso % (Auto) Lymph # (Auto) [place] # (Auto) Eos # (Auto) Baso # (Auto) Abs Immat Gran (auto) Absolute Neuts (auto) Absolute Nucleated RBC Nucleated RBC % (auto) VBG pH 7.37 VBG pCO2 24 VBG pO2 155 VBG HCO3 14 L VBG O2 Saturation 100.0 VBG Base Excess -8.8 Anion Gap 17 Estim Creat Clear Calc 23.3 Estimated GFR 12 POC Glucose Random Glucose 767 H* Calcium 7.7 L D Phosphorus 4.8 H Magnesium 2.3 Total Bilirubin 0.8 Direct Bilirubin 0.2 AST 29 ALT 23 Alkaline Phosphatase 111 Total Protein 6.7 Albumin 3.0 L Lipase 72 Beta HCG, Quant < 2 B-Hydroxybutyrate 0.08 H 08/21/22 08/21/22 03:12 04:59 MCV MCH MCHC RDW Plt Count MPV Immature Gran % (Auto) Neut % (Auto) Lymph % (Auto) [place] % (Auto) Eos % (Auto) Baso % (Auto) Lymph # (Auto) [place] # (Auto) Eos # (Auto) Baso # (Auto) Abs Immat Gran (auto) Absolute Neuts (auto) Absolute Nucleated RBC Nucleated RBC % (auto) VBG pH VBG pCO2 VBG pO2 VBG HCO3 VBG O2 Saturation VBG Base Excess Anion Gap Estim Creat Clear Calc Estimated GFR POC Glucose 597 H* 560 H* Random Glucose Calcium Phosphorus Magnesium Total Bilirubin Direct Bilirubin AST ALT Alkaline Phosphatase Total Protein Albumin Lipase Beta HCG, Quant B-Hydroxybutyrate Imaging Radiologist's Impressions: Impressions Chest X-Ray 08/21/22 02:01 IMPRESSION: Clear lungs. Right jugular central venous catheter tip is in distal SVC. Abdomen/Pelvis CT 08/21/22 02:21 IMPRESSION: Moderate constipation without obstruction. Moderate ascites with distention of stomach from recently ingested food. Anasarca. Multiple tiny radiopaque renal calculi but no caliectasis or hydronephrosis. Patient's lower abdominal pain is likely from constipation. Small right pleural effusion Fleischner guidelines were followed. Assessment and Plan (1) Hyperglycemia: Status: Acute Plan This is a 31-year-old female with pertinent history of essential hypertension, congestive heart failure with reduced ejection fraction, 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 #. Uncontrolled hyperglycemia: Initiating basal plus insulin regimen. Trend blood glucose levels and optimize anti hyperglycemics. #. Pseudohyponatremia in the setting of above #.? ESRD on HD:?Consulted nephrology, appreciate assistance. #.? Essential hypertension: Continue home antihypertensives #.? Chronic congestive heart failure with reduced ejection fraction: On beta- mohamud, torsemide and ARB #.? Chronic normocytic anemia #. CAD: on dual antiplatelet therapy and high-intensity statin Med rec pending DVT prophylaxis:? Lovenox 30 mg daily Full code Low-salt diet Time Spent With Patient Time: Total time managing care of this patient today ____ minutes. Quality Stroke Does the patient have a stroke diagnosis?: No VTE Prior VTE?: No VTE Risk Level:: Medical - moderate - high VTE Device Contraindication: Treatment Not Indicated VTE Drug Contraindication: N/A - Med Ordered
[2022-08-21] MEDS: Insulin Glargine,Hum.rec.anlog 100 UNIT/ML 10 ML VIAL 20 UNIT SUBCUT ×2 (06:03→21:08)
[2022-08-21] MEDS: polyethylene glycoL 3350 17 GM POWD.PACK PO ×2 (06:07→21:09)
[2022-08-21] MEDS: oxyCODONE HCl Immed Release 5 MG TABLET PO ×2 (06:07→12:16)
[2022-08-21 06:08] LABS: Glucose, Whole Blood 443 mg/dL (60-115)
[2022-08-21 06:13] VITALS: BP 138/71; PULSE 90; RESP 17; O2SAT 98
[2022-08-21 07:13] LABS: Glucose, Whole Blood 405 mg/dL (60-115)
--- NOTE | 2022-08-21 07:17 | PHA.MEDREC ---
Pharmacy Consult ? Medication Reconciliation Pharmacy has completed the medication reconciliation. Pharmacy has reviewed med rec done by nursing. Pt is poor historian and doesn't know her medications so used discharge list from prior visit 08/20/22.
[2022-08-21 07:53] VITALS: BP 121/68; PULSE 91; RESP 20; O2SAT 97
[2022-08-21] MEDS: Insulin Lispro 100 UNIT/ML 3 ML VIAL SUBCUT ×8 (07:55→21:09)
--- NOTE | 2022-08-21 08:55 | HO.PM.IMPN ---
Subjective Subjective Date of Service: 08/21/22 Review of Systems Follow up hyperglycemia pain to legs and abd bleeding permacath Physical Exam Vital Signs: Vital Signs: Last Vital Signs Temp 98.7 F 08/21/22 01:18 Pulse 91 08/21/22 07:53 Resp 20 08/21/22 07:53 BP 121/68 08/21/22 07:53 Pulse Ox 97 08/21/22 07:53 O2 Del Method Room Air 08/21/22 07:53 BMI result Body Mass Index 36.4 Appearing in no acute distress lung sounds are clear to auscultation heart regular rate rhythm, clear S1, S2 positive bowel sounds, abdomen is soft, nontender neuro patient is alert x3, no focal deficits Permacath site bleeding Objective Data Active Medications Acetaminophen (Acetaminophen 325 Mg Tablet) 650 mg PO Q6H PRN PRN Reason: Pain, Mild (Pain Scale 1-3) Dextrose (Dextrose 50 % 25 Gm/50 Ml Syringe) 25 gm IVPUSH Q15M PRN; Protocol PRN Reason: per Hypoglycemia Standing Ord. Enoxaparin Sodium (Enoxaparin Sodium 30 Mg/0.3 Ml Syringe) 30 mg SUBCUT Q24H VASILE Glucose (Glucose Gel 15 Gm Gel..Gram.) 15 gm PO Q15M PRN; Protocol PRN Reason: per Hypoglycemia Standing Ord. Hydromorphone HCl (Hydromorphone Hcl 0.5 Mg/0.5 Ml Syringe) 0.5 mg IVPUSH Q4H PRN; Protocol PRN Reason: Pain, Mild (Pain Scale 1-3) Insulin Glargine (Insulin Glargine,Hum.Rec.Anlog 100 Unit/Ml 10 Ml Vial) 20 unit SUBCUT BEDTIME [facility] Last Admin: 08/21/22 06:03 Dose: 20 unit Documented By: PANTERA Insulin Human Lispro (Insulin Lispro 100 Unit/Ml 3 Ml Vial) 0 unit SUBCUT QIDACHS [facility]; Protocol Last Admin: 08/21/22 07:55 Dose: 10 unit Documented By: ALEXANDER Insulin Human Lispro (Insulin Lispro 100 Unit/Ml 3 Ml Vial) 5 unit SUBCUT QIDACHS [facility] Last Admin: 08/21/22 07:58 Dose: 5 unit Documented By: ALEXANDER Melatonin (Melatonin 3 Mg Tablet) 6 mg PO BEDTIME PRN PRN Reason: Insomnia Ondansetron HCl (Ondansetron Hcl 4 Mg/2 Ml Vial) 4 mg IVPUSH Q8H PRN PRN Reason: Nausea and Vomiting Pharmacy Consult (Consult Rx Perform Med Rec) 1 each MISCELLANE ONCE PRN PRN Reason: Consult order Sodium Chloride (0.9 % Sodium Chloride Flush 3 Ml Syringe) 3 ml IVFLUSH QSHIFT [facility] Labs 08/21/22 01:39 08/21/22 01:39 Labs: Laboratory Results - last 24 hr 08/21/22 08/21/22 08/21/22 01:18 01:20 01:39 MCV 86.9 MCH 26.6 L MCHC 30.6 L RDW 20.3 H Plt Count 156 L D MPV 12.1 Immature Gran % (Auto) 0.2 Neut % (Auto) 87.6 H Lymph % (Auto) 2.6 L [place] % (Auto) 9.6 Eos % (Auto) 0.0 Baso % (Auto) 0.0 Lymph # (Auto) 0.2 L [place] # (Auto) 0.8 Eos # (Auto) 0.0 Baso # (Auto) 0.0 Abs Immat Gran (auto) 0.02 Absolute Neuts (auto) 7.1 Absolute Nucleated RBC 0.000 Nucleated RBC % (auto) 0.0 VBG pH VBG pCO2 VBG pO2 VBG HCO3 VBG O2 Saturation VBG Base Excess Anion Gap Estim Creat Clear Calc Estimated GFR POC Glucose > 600 H* > 600 H* Random Glucose Calcium Phosphorus Magnesium Total Bilirubin Direct Bilirubin AST ALT Alkaline Phosphatase Total Protein Albumin Lipase Beta HCG, Quant B-Hydroxybutyrate 08/21/22 08/21/22 08/21/22 01:39 01:39 01:44 MCV MCH MCHC RDW Plt Count MPV Immature Gran % (Auto) Neut % (Auto) Lymph % (Auto) [place] % (Auto) Eos % (Auto) Baso % (Auto) Lymph # (Auto) [place] # (Auto) Eos # (Auto) Baso # (Auto) Abs Immat Gran (auto) Absolute Neuts (auto) Absolute Nucleated RBC Nucleated RBC % (auto) VBG pH 7.37 VBG pCO2 24 VBG pO2 155 VBG HCO3 14 L VBG O2 Saturation 100.0 VBG Base Excess -8.8 Anion Gap 17 Estim Creat Clear Calc 23.3 Estimated GFR 12 POC Glucose Random Glucose 767 H* Calcium 7.7 L D Phosphorus 4.8 H Magnesium 2.3 Total Bilirubin 0.8 Direct Bilirubin 0.2 AST 29 ALT 23 Alkaline Phosphatase 111 Total Protein 6.7 Albumin 3.0 L Lipase 72 Beta HCG, Quant < 2 B-Hydroxybutyrate 0.08 H 08/21/22 08/21/22 08/21/22 03:12 04:59 06:02 MCV MCH MCHC RDW Plt Count MPV Immature Gran % (Auto) Neut % (Auto) Lymph % (Auto) [place] % (Auto) Eos % (Auto) Baso % (Auto) Lymph # (Auto) [place] # (Auto) Eos # (Auto) Baso # (Auto) Abs Immat Gran (auto) Absolute Neuts (auto) Absolute Nucleated RBC Nucleated RBC % (auto) VBG pH VBG pCO2 VBG pO2 VBG HCO3 VBG O2 Saturation VBG Base Excess Anion Gap Estim Creat Clear Calc Estimated GFR POC Glucose 597 H* 560 H* 443 H* Random Glucose Calcium Phosphorus Magnesium Total Bilirubin Direct Bilirubin AST ALT Alkaline Phosphatase Total Protein Albumin Lipase Beta HCG, Quant B-Hydroxybutyrate 08/21/22 07:10 MCV MCH MCHC RDW Plt Count MPV Immature Gran % (Auto) Neut % (Auto) Lymph % (Auto) [place] % (Auto) Eos % (Auto) Baso % (Auto) Lymph # (Auto) [place] # (Auto) Eos # (Auto) Baso # (Auto) Abs Immat Gran (auto) Absolute Neuts (auto) Absolute Nucleated RBC Nucleated RBC % (auto) VBG pH VBG pCO2 VBG pO2 VBG HCO3 VBG O2 Saturation VBG Base Excess Anion Gap Estim Creat Clear Calc Estimated GFR POC Glucose 405 H* Random Glucose Calcium Phosphorus Magnesium Total Bilirubin Direct Bilirubin AST ALT Alkaline Phosphatase Total Protein Albumin Lipase Beta HCG, Quant B-Hydroxybutyrate Assessment and Plan (1) End-stage renal disease (ESRD): Status: Acute Plan 31-year-old female with pertinent history of essential hypertension, congestive heart failure with reduced ejection fraction, 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 Diabetes mellitus type 1 with Uncontrolled hyperglycemia ss and meatime insulin ada diet Pseudohyponatremia in the setting of above ESRD on HD Consulted nephrology, appreciate assistance. IR to check permacath due to burning, irritation and bleeding Essential hypertension Continue home antihypertensives chronic congestive heart failure with reduced ejection fraction On beta-mohamud, torsemide and ARB Chronic normocytic anemia CAD on dual antiplatelet therapy and high-intensity statin DVT prophylaxis:? Lovenox 30 mg daily Full code Attending Dr. Weeks Time Spent With Patient Time: Total time managing care of this patient today ____ minutes. Quality Stroke Does the patient have a stroke diagnosis?: No VTE Prior VTE?: No VTE Risk Level:: Medical - moderate - high VTE Device Contraindication: Treatment Not Indicated VTE Drug Contraindication: N/A - Med Ordered
--- NOTE | 2022-08-21 08:57 | MHC.CLN ---
NUTRITION DIET CHANGED PER DX DM AND ESRD. DIET CHANGED TO DIABETIC 1800 KCALS, 2 GRAM SODIUM, LOW POTASSIUM, LOW PHOSPHORUS. LABS REVIEWED.
[2022-08-21] MEDS: Enoxaparin Sodium 30 MG/0.3 ML SYRINGE SUBCUT (09:08)
[2022-08-21] MEDS: Furosemide 20 MG TABLET PO (09:09)
[2022-08-21] MEDS: 0.9 % Sodium Chloride Flush 3 ML SYRINGE IVFLUSH ×3 (09:09→21:10)
[2022-08-21 09:10] VITALS: BP 132/75; PULSE 90; RESP 20; TEMP 36.6; O2SAT 99
[2022-08-21 10:56] LABS: Anion Gap 14 (12-20); Blood Urea Nitrogen 52 mg/dL (9-16); Calcium 7.9 mg/dL (8.4-10.2); Carbon Dioxide 18 mmol/L (22-29); Chloride 103 mmol/L (96-108); Creatinine Clr Calc Pharmacy 23.2; Estimated Glomerular Filt Rate 12; Glucose Random 179 mg/dL (60-115); Potassium 3.7 mmol/L (3.3-5.1); Sodium 131 mmol/L (135-145)
--- NOTE | 2022-08-21 11:14 | PM.PNNEP ---
Subjective Subjective Date of Service: 08/22/22 Interval history: Events noted. Physical Exam Vital Signs: Vital Signs: Last Vital Signs Temp 97.8 F 08/21/22 09:10 Pulse 90 08/21/22 09:10 Resp 20 08/21/22 09:10 BP 132/75 08/21/22 09:10 Pulse Ox 99 08/21/22 09:10 O2 Del Method Room Air 08/21/22 09:10 BMI result Body Mass Index 36.4 Comfortable Neck is supple Lung: Air entry equal Heart: S1,S2, normal. No rub Abd: Soft. BS + NS : Alert.No asterexis Ext: +1 edema Objective Data Labs 08/21/22 01:39 08/21/22 10:25 Labs: Laboratory Results - last 24 hr 08/21/22 08/21/22 08/21/22 01:18 01:20 01:39 WBC 8.1 RBC 3.35 L Hgb 8.9 L Hct 29.1 L MCV 86.9 MCH 26.6 L MCHC 30.6 L RDW 20.3 H Plt Count 156 L D MPV 12.1 Immature Gran % (Auto) 0.2 Neut % (Auto) 87.6 H Lymph % (Auto) 2.6 L [place] % (Auto) 9.6 Eos % (Auto) 0.0 Baso % (Auto) 0.0 Lymph # (Auto) 0.2 L [place] # (Auto) 0.8 Eos # (Auto) 0.0 Baso # (Auto) 0.0 Abs Immat Gran (auto) 0.02 Absolute Neuts (auto) 7.1 Absolute Nucleated RBC 0.000 Nucleated RBC % (auto) 0.0 VBG pH VBG pCO2 VBG pO2 VBG HCO3 VBG O2 Saturation VBG Base Excess Sodium Potassium Chloride Carbon Dioxide Anion Gap BUN Creatinine Estim Creat Clear Calc Estimated GFR POC Glucose > 600 H* > 600 H* Random Glucose Calcium Phosphorus Magnesium Total Bilirubin Direct Bilirubin AST ALT Alkaline Phosphatase Total Protein Albumin Lipase Beta HCG, Quant B-Hydroxybutyrate 08/21/22 08/21/22 08/21/22 01:39 01:39 01:44 WBC RBC Hgb Hct MCV MCH MCHC RDW Plt Count MPV Immature Gran % (Auto) Neut % (Auto) Lymph % (Auto) [place] % (Auto) Eos % (Auto) Baso % (Auto) Lymph # (Auto) [place] # (Auto) Eos # (Auto) Baso # (Auto) Abs Immat Gran (auto) Absolute Neuts (auto) Absolute Nucleated RBC Nucleated RBC % (auto) VBG pH 7.37 VBG pCO2 24 VBG pO2 155 VBG HCO3 14 L VBG O2 Saturation 100.0 VBG Base Excess -8.8 Sodium 127 L Potassium 4.7 Chloride 101 Carbon Dioxide 14 L Anion Gap 17 BUN 54 H Creatinine 4.10 H* Estim Creat Clear Calc 23.3 Estimated GFR 12 POC Glucose Random Glucose 767 H* Calcium 7.7 L D Phosphorus 4.8 H Magnesium 2.3 Total Bilirubin 0.8 Direct Bilirubin 0.2 AST 29 ALT 23 Alkaline Phosphatase 111 Total Protein 6.7 Albumin 3.0 L Lipase 72 Beta HCG, Quant < 2 B-Hydroxybutyrate 0.08 H 08/21/22 08/21/22 08/21/22 03:12 04:59 06:02 WBC RBC Hgb Hct MCV MCH MCHC RDW Plt Count MPV Immature Gran % (Auto) Neut % (Auto) Lymph % (Auto) [place] % (Auto) Eos % (Auto) Baso % (Auto) Lymph # (Auto) [place] # (Auto) Eos # (Auto) Baso # (Auto) Abs Immat Gran (auto) Absolute Neuts (auto) Absolute Nucleated RBC Nucleated RBC % (auto) VBG pH VBG pCO2 VBG pO2 VBG HCO3 VBG O2 Saturation VBG Base Excess Sodium Potassium Chloride Carbon Dioxide Anion Gap BUN Creatinine Estim Creat Clear Calc Estimated GFR POC Glucose 597 H* 560 H* 443 H* Random Glucose Calcium Phosphorus Magnesium Total Bilirubin Direct Bilirubin AST ALT Alkaline Phosphatase Total Protein Albumin Lipase Beta HCG, Quant B-Hydroxybutyrate 08/21/22 08/21/22 07:10 10:25 WBC RBC Hgb Hct MCV MCH MCHC RDW Plt Count MPV Immature Gran % (Auto) Neut % (Auto) Lymph % (Auto) [place] % (Auto) Eos % (Auto) Baso % (Auto) Lymph # (Auto) [place] # (Auto) Eos # (Auto) Baso # (Auto) Abs Immat Gran (auto) Absolute Neuts (auto) Absolute Nucleated RBC Nucleated RBC % (auto) VBG pH VBG pCO2 VBG pO2 VBG HCO3 VBG O2 Saturation VBG Base Excess Sodium 131 L Potassium 3.7 D Chloride 103 Carbon Dioxide 18 L Anion Gap 14 BUN 52 H Creatinine 4.12 H* Estim Creat Clear Calc 23.2 Estimated GFR 12 POC Glucose 405 H* Random Glucose 179 H Calcium 7.9 L Phosphorus Magnesium Total Bilirubin Direct Bilirubin AST ALT Alkaline Phosphatase Total Protein Albumin Lipase Beta HCG, Quant B-Hydroxybutyrate Procedures Date of Service Date of Service: 08/22/22 Assessment & Plan Assessment and plan (1) End-stage renal disease (ESRD): Status: Acute Plan 32-year-old woman with advanced renal failure approaching ESRD. Last dialysis was on Sunday. Next dialysis is on Sunday. We will remove fluid as tolerated. I will arrange for outpatient dialysis at [facility]. Anemia. Most likely due to EPO deficiency. I will arrange for Epogen. Mild hypocalcemia with mild hyperphosphatemia most likely due to secondary hyperparathyroidism. Check intact PTH. Keep on low phosphorus diet. If phosphorus increases further I will add a phosphorus binder. Time Spent With Patient Time: Total time managing care of this patient today ____ minutes. Progress Note: Quality Stroke Does the patient have a stroke diagnosis?: No
[2022-08-21 11:16] LABS: Glucose, Whole Blood 155 mg/dL (60-115)
[2022-08-21] MEDS: predniSONE 10 MG TABLET 40 MG PO (11:40)
[2022-08-21 13:51] LABS: Glucose, Whole Blood 112 mg/dL (60-115)
[2022-08-21 15:22] VITALS: BP 133/72; PULSE 85; RESP 18; TEMP 36.8; O2SAT 93
[2022-08-21 16:32] LABS: Glucose, Whole Blood 172 mg/dL (60-115)
[2022-08-21 17:55] LABS: Glucose, Whole Blood 211 mg/dL (60-115)
[2022-08-21 19:41] VITALS: BP 144/78; PULSE 95; RESP 18; TEMP 36.4; O2SAT 93
[2022-08-21 20:27] LABS: Glucose, Whole Blood 250 mg/dL (60-115)
[2022-08-21] MEDS: carvediloL 12.5 MG TABLET PO (21:09)
[2022-08-21] MEDS: Atorvastatin Calcium 40 MG TABLET PO (21:09)
[2022-08-22] MEDS: HYDROmorphone HCl 0.5 MG/0.5 ML SYRINGE IVPUSH ×6 (02:02→23:00)
[2022-08-22 04:00] VITALS: BP 166/85; PULSE 88; RESP 16; TEMP 36.2; O2SAT 95
[2022-08-22 07:24] LABS: Glucose, Whole Blood 269 mg/dL (60-115)
[2022-08-22] MEDS: Insulin Lispro 100 UNIT/ML 3 ML VIAL SUBCUT ×7 (07:56→20:43)
[2022-08-22] MEDS: 0.9 % Sodium Chloride Flush 3 ML SYRINGE IVFLUSH ×3 (07:57→20:46)
[2022-08-22 08:00] VITALS: BP 204/106; PULSE 76; RESP 20; TEMP 36.6; O2SAT 97
[2022-08-22] MEDS: Losartan Potassium 25 MG TABLET PO (08:57)
[2022-08-22] MEDS: carvediloL 12.5 MG TABLET PO ×2 (08:57→20:43)
[2022-08-22] MEDS: NIFEdipine ER 60 MG TAB.ER.24 PO (08:57)
[2022-08-22] MEDS: Ferrous Sulfate 324 MG TABLET.DR PO (08:57)
[2022-08-22] MEDS: Enoxaparin Sodium 30 MG/0.3 ML SYRINGE SUBCUT (08:57)
[2022-08-22] MEDS: predniSONE 10 MG TABLET 40 MG PO (08:57)
[2022-08-22] MEDS: polyethylene glycoL 3350 17 GM POWD.PACK PO (08:57)
[2022-08-22 09:14] LABS: MANUAL DIFF FLAG NO
[2022-08-22 09:23] LABS: Basophils Percent Auto 0.2 % (0-2); Hematocrit 30.1 % (37.0-47.0); Hemoglobin 9.2 g/dl (12.0-16.0); Imm Gran Abs Auto 0.03 X10*3/uL (0.00-0.03); Imm Gran Pct Auto 0.5 % (0.0-0.4); Lymphocytes Absolute Auto 0.4 X10*3/uL (1.2-4.9); Lymphocytes Percent Auto 6.5 % (20-40); Mean Corpuscular HGB Conc 30.6 g/dl (31.0-35.0); Mean Corpuscular Hemoglobin 26.3 pg (27.0-33.0); Mean Platelet Volume 11.8 fL (9.4-12.3); Monocytes Absolute Auto 0.5 X10*3/uL (0.1-1.2); Monocytes Percent Auto 8.3 % (2-11); Neutrophils Absolute Auto 5.1 x10*3/uL (2.0-8.3); Neutrophils Percent Auto 84.5 % (45-73); Platelet Count 149 X10*3/uL (160-400); Red Cell Distribution Width 19.9 % (11.0-16.0)
--- NOTE | 2022-08-22 09:48 | P.PNNP_ITS ---
Subjective Subjective Date of Service: 08/23/22 Interval history: Events noted. Physical Exam Vital Signs: Vital Signs: Last Vital Signs Temp 97.8 F 08/22/22 08:00 Pulse 76 08/22/22 08:00 Resp 20 08/22/22 08:00 BP 204/106 H 08/22/22 08:00 Pulse Ox 97 08/22/22 08:00 O2 Del Method Room Air 08/22/22 08:00 O2 Flow Rate 94 08/21/22 19:41 BMI result Body Mass Index 36.4 Comfortable Neck is supple Lung: Air entry equal Heart: S1,S2, normal. No rub Abd: Soft. BS + NS : Alert.No asterexis Ext: + edema Objective Data Labs 08/22/22 08:50 08/21/22 10:25 Labs: Laboratory Results - last 24 hr 08/21/22 08/21/22 08/21/22 10:25 11:10 13:46 WBC RBC Hgb Hct MCV MCH MCHC RDW Plt Count MPV Immature Gran % (Auto) Neut % (Auto) Lymph % (Auto) [place] % (Auto) Eos % (Auto) Baso % (Auto) Lymph # (Auto) [place] # (Auto) Eos # (Auto) Baso # (Auto) Abs Immat Gran (auto) Absolute Neuts (auto) Absolute Nucleated RBC Nucleated RBC % (auto) Sodium 131 L Potassium 3.7 D Chloride 103 Carbon Dioxide 18 L Anion Gap 14 BUN 52 H Creatinine 4.12 H* Estim Creat Clear Calc 23.2 Estimated GFR 12 POC Glucose 155 H 112 Random Glucose 179 H Calcium 7.9 L 08/21/22 08/21/22 08/21/22 16:10 17:49 20:19 WBC RBC Hgb Hct MCV MCH MCHC RDW Plt Count MPV Immature Gran % (Auto) Neut % (Auto) Lymph % (Auto) [place] % (Auto) Eos % (Auto) Baso % (Auto) Lymph # (Auto) [place] # (Auto) Eos # (Auto) Baso # (Auto) Abs Immat Gran (auto) Absolute Neuts (auto) Absolute Nucleated RBC Nucleated RBC % (auto) Sodium Potassium Chloride Carbon Dioxide Anion Gap BUN Creatinine Estim Creat Clear Calc Estimated GFR POC Glucose 172 H 211 H 250 H Random Glucose Calcium 08/22/22 08/22/22 08/22/22 07:07 08:50 08:50 WBC 6.0 RBC 3.50 L Hgb 9.2 L Hct 30.1 L MCV 86.0 MCH 26.3 L MCHC 30.6 L RDW 19.9 H Plt Count 149 L MPV 11.8 Immature Gran % (Auto) 0.5 H Neut % (Auto) 84.5 H Lymph % (Auto) 6.5 L [place] % (Auto) 8.3 Eos % (Auto) 0.0 Baso % (Auto) 0.2 Lymph # (Auto) 0.4 L [place] # (Auto) 0.5 Eos # (Auto) 0.0 Baso # (Auto) 0.0 Abs Immat Gran (auto) 0.03 Absolute Neuts (auto) 5.1 Absolute Nucleated RBC 0.000 Nucleated RBC % (auto) 0.0 Sodium Cancelled Potassium Cancelled Chloride Cancelled Carbon Dioxide Cancelled Anion Gap Cancelled BUN Cancelled Creatinine Cancelled Estim Creat Clear Calc Cancelled Estimated GFR Cancelled POC Glucose 269 H Random Glucose Cancelled Calcium Cancelled Procedures Date of Service Date of Service: 08/23/22 Assessment & Plan Assessment and plan (1) End-stage renal disease (ESRD): Status: Acute Plan 32-year-old woman with advanced renal failure approaching ESRD. Keep on hemodialysis 3 times a week We will remove fluid as tolerated. outpatient dialysis at [facility]. Anemia. Most likely due to EPO deficiency. Mild hypocalcemia with mild hyperphosphatemia most likely due to secondary hyperparathyroidism. Check intact PTH. Keep on low phosphorus diet. If phosphorus increases further I will add a phosphorus binder. Labs pending. Hypertension Reassess blood pressure after fluid removal with dialysis. Time Spent With Patient Time: Total time managing care of this patient today ____ minutes. Progress Note: Quality Stroke Does the patient have a stroke diagnosis?: No
[2022-08-22 09:51] LABS: Anion Gap 12 (12-20); Blood Urea Nitrogen 71 mg/dL (9-16); Carbon Dioxide 19 mmol/L (22-29); Chloride 103 mmol/L (96-108); Creatinine Clr Calc Pharmacy 25.2; Estimated Glomerular Filt Rate 14; Glucose Random 228 mg/dL (60-115); Potassium 4.3 mmol/L (3.3-5.1); Sodium 130 mmol/L (135-145)
[2022-08-22 13:34] LABS: Glucose, Whole Blood 109 mg/dL (60-115)
[2022-08-22] MEDS: ondansetron HCL 4 MG/2 ML VIAL IVPUSH (14:31)
--- NOTE | 2022-08-22 15:22 | P.PNIM_ITS ---
Subjective Subjective Date of Service: 08/22/22 Review of Systems Follow up hyperglycemia pain to legs and abd bleeding permacath , now resolved Physical Exam Vital Signs: Vital Signs: Last Vital Signs Temp 97.8 F 08/22/22 08:00 Pulse 76 08/22/22 08:00 Resp 20 08/22/22 08:00 BP 204/106 H 08/22/22 08:00 Pulse Ox 97 08/22/22 08:00 O2 Del Method Room Air 08/22/22 08:00 O2 Flow Rate 94 08/21/22 19:41 BMI result Body Mass Index 36.4 Appearing in no acute distress lung sounds are clear to auscultation heart regular rate rhythm, clear S1, S2 positive bowel sounds, abdomen is soft, nontender neuro patient is alert x3, no focal deficits Right chest permacath Objective Data Active Medications Acetaminophen (Acetaminophen 325 Mg Tablet) 650 mg PO Q6H PRN PRN Reason: Pain, Mild (Pain Scale 1-3) Atorvastatin Calcium (Atorvastatin Calcium 40 Mg Tablet) [address] [facility] Last Admin: 08/21/22 21:09 Dose: 40 mg Documented By: CHRISTAL Carvedilol (Carvedilol 12.5 Mg Tablet) 12.[address] [facility]; Protocol Last Admin: 08/22/22 08:57 Dose: 12.5 mg Documented By: MARGARET Dextrose (Dextrose 50 % 25 Gm/50 Ml Syringe) 25 gm IVPUSH Q15M PRN; Protocol PRN Reason: per Hypoglycemia Standing Ord. Docusate Sodium (Docusate Sodium 100 Mg Capsule) 100 mg PO DAILY PRN PRN Reason: constipation Enoxaparin Sodium (Enoxaparin Sodium 30 Mg/0.3 Ml Syringe) [address] [facility] Last Admin: 08/22/22 08:57 Dose: 30 mg Documented By: MARGARET Ferrous Sulfate (Ferrous Sulfate 324 Mg Tablet.) [address] [facility] Last Admin: 08/22/22 08:57 Dose: 324 mg Documented By: MARGARET Glucose (Glucose Gel 15 Gm Gel..Gram.) 15 gm PO Q15M PRN; Protocol PRN Reason: per Hypoglycemia Standing Ord. Hydromorphone HCl (Hydromorphone Hcl 0.5 Mg/0.5 Ml Syringe) 0.5 mg IVPUSH Q4H PRN; Protocol PRN Reason: Pain, Mild (Pain Scale 1-3) Last Admin: 08/22/22 14:31 Dose: 0.5 mg Documented By: MARGARET Insulin Glargine (Insulin Glargine,Hum.Rec.Anlog 100 Unit/Ml 10 Ml Vial) [address] [facility] Last Admin: 08/21/22 21:08 Dose: 20 unit Documented By: CHRISTAL Insulin Human Lispro (Insulin Lispro 100 Unit/Ml 3 Ml Vial) [address] [facility]; Protocol Last Admin: 08/22/22 13:33 Dose: Not Given Documented By: MARGARET Non-Admin Reason: No Insulin Coverage Insulin Human Lispro (Insulin Lispro 100 Unit/Ml 3 Ml Vial) [address] [facility] Last Admin: 08/22/22 13:35 Dose: 5 unit Documented By: MARGARET Losartan Potassium (Losartan Potassium 25 Mg Tablet) [address] [facility]; Stephen col Last Admin: 08/22/22 08:57 Dose: 25 mg Documented By: MARGARET Melatonin (Melatonin 3 Mg Tablet) 6 mg PO BEDTIME PRN PRN Reason: Insomnia Nifedipine (Nifedipine Er 60 Mg Tab.Er.24) [address] [facility]; Protocol Last Admin: 08/22/22 08:57 Dose: 60 mg Documented By: MARGARET Omeprazole (Omeprazole 40 Mg Capsule.Dr) 40 mg PO DAILY@0630 [facility] Last Admin: 08/22/22 05:53 Dose: Not Given Documented By: CHRISTAL Non-Admin Reason: Patient Refused Ondansetron HCl (Ondansetron Hcl 4 Mg/2 Ml Vial) 4 mg IVPUSH Q8H PRN PRN Reason: Nausea and Vomiting Last Admin: 08/22/22 14:31 Dose: 4 mg Documented By: MARGARET Oxycodone HCl (Oxycodone Hcl Immed Release 5 Mg Tablet) 5 mg PO Q6H PRN PRN Reason: severe pain Last Admin: 08/21/22 12:16 Dose: 5 mg Documented By: MARGARET Pharmacy Consult (Consult Rx Perform Med Rec) 1 each MISCELLANE ONCE PRN PRN Reason: Consult order Polyethylene Glycol (Polyethylene Glycol 3350 17 Gm Powd.Pack) [address] [facility] Last Admin: 08/22/22 08:57 Dose: 17 gm Documented By: MARGARET Prednisone (Prednisone 10 Mg Tablet) [address] [facility]; Taper Stop: 09/25/22 11:29 Last Admin: 08/22/22 08:57 Dose: 40 mg Documented By: MARGARET Sodium Chloride (0.9 % Sodium Chloride Flush 3 Ml Syringe) [address] [facility] Last Admin: 08/22/22 07:57 Dose: 3 ml Documented By: MARGARET Labs 08/22/22 08:50 08/22/22 08:50 Labs: Laboratory Results - last 24 hr 08/21/22 08/21/22 08/21/22 16:10 17:49 20:19 MCV MCH MCHC RDW Plt Count MPV Immature Gran % (Auto) Neut % (Auto) Lymph % (Auto) [place] % (Auto) Eos % (Auto) Baso % (Auto) Lymph # (Auto) [place] # (Auto) Eos # (Auto) Baso # (Auto) Abs Immat Gran (auto) Absolute Neuts (auto) Absolute Nucleated RBC Nucleated RBC % (auto) Anion Gap Estim Creat Clear Calc Estimated GFR POC Glucose 172 H 211 H 250 H Random Glucose Calcium 08/22/22 08/22/22 08/22/22 07:07 08:50 08:50 MCV 86.0 MCH 26.3 L MCHC 30.6 L RDW 19.9 H Plt Count 149 L MPV 11.8 Immature Gran % (Auto) 0.5 H Neut % (Auto) 84.5 H Lymph % (Auto) 6.5 L [place] % (Auto) 8.3 Eos % (Auto) 0.0 Baso % (Auto) 0.2 Lymph # (Auto) 0.4 L [place] # (Auto) 0.5 Eos # (Auto) 0.0 Baso # (Auto) 0.0 Abs Immat Gran (auto) 0.03 Absolute Neuts (auto) 5.1 Absolute Nucleated RBC 0.000 Nucleated RBC % (auto) 0.0 Anion Gap Cancelled Estim Creat Clear Calc Cancelled Estimated GFR Cancelled POC Glucose 269 H Random Glucose Cancelled Calcium Cancelled 08/22/22 08/22/22 08:50 13:24 MCV MCH MCHC RDW Plt Count MPV Immature Gran % (Auto) Neut % (Auto) Lymph % (Auto) [place] % (Auto) Eos % (Auto) Baso % (Auto) Lymph # (Auto) [place] # (Auto) Eos # (Auto) Baso # (Auto) Abs Immat Gran (auto) Absolute Neuts (auto) Absolute Nucleated RBC Nucleated RBC % (auto) Anion Gap 12 Estim Creat Clear Calc 25.2 Estimated GFR 14 POC Glucose 109 Random Glucose 228 H Calcium 8.0 L Assessment and Plan (1) End-stage renal disease (ESRD): Status: Acute Plan 31-year-old female with pertinent history of essential hypertension, congestive heart failure with reduced ejection fraction, 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 Nausea and vomiting acute on chronic antiemetics Diabetes mellitus type 1 with Uncontrolled hyperglycemia. Improved ss and meatime insulin ada diet Pseudohyponatremia NA 130 in the setting of above ESRD on HD nephrology following dialysis T,TH,S right chest permacath Essential hypertension Continue home antihypertensives chronic congestive heart failure with reduced ejection fraction On beta-mohamud, torsemide and ARB Chronic normocytic anemia stable CAD on dual antiplatelet therapy and high-intensity statin DISPO DVT prophylaxis:? Lovenox 30 mg daily Full code Attending Dr. Weeks Time Spent With Patient Time: Total time managing care of this patient today ____ minutes. Quality Stroke Does the patient have a stroke diagnosis?: No VTE Prior VTE?: No VTE Risk Level:: Medical - moderate - high VTE Device Contraindication: Treatment Not Indicated VTE Drug Contraindication: N/A - Med Ordered
[2022-08-22 15:30] VITALS: BP 148/70; PULSE 79; RESP 18; TEMP 36; O2SAT 97
[2022-08-22 16:18] LABS: Glucose, Whole Blood 162 mg/dL (60-115)
[2022-08-22 19:07] VITALS: BP 132/70; PULSE 78; RESP 20; TEMP 36.1; O2SAT 97
[2022-08-22 20:19] LABS: Glucose, Whole Blood 223 mg/dL (60-115)
[2022-08-22] MEDS: Insulin Glargine,Hum.rec.anlog 100 UNIT/ML 10 ML VIAL 20 UNIT SUBCUT (20:42)
[2022-08-22] MEDS: Atorvastatin Calcium 40 MG TABLET PO (20:43)
[2022-08-23] MEDS: HYDROmorphone HCl 0.5 MG/0.5 ML SYRINGE IVPUSH ×2 (03:05→07:35)
[2022-08-23 03:24] VITALS: BP 162/82; PULSE 80; RESP 16; TEMP 36.1; O2SAT 99
[2022-08-23 07:03] VITALS: BP 158/76; PULSE 81; RESP 18; TEMP 36.6; O2SAT 96
[2022-08-23 07:09] LABS: Glucose, Whole Blood 247 mg/dL (60-115)
[2022-08-23] MEDS: Enoxaparin Sodium 30 MG/0.3 ML SYRINGE SUBCUT (07:34)
[2022-08-23] MEDS: Ferrous Sulfate 324 MG TABLET.DR PO (07:35)
[2022-08-23] MEDS: predniSONE 10 MG TABLET 40 MG PO (07:35)
[2022-08-23] MEDS: carvediloL 12.5 MG TABLET PO (07:35)
[2022-08-23] MEDS: NIFEdipine ER 60 MG TAB.ER.24 PO (07:35)
[2022-08-23] MEDS: Losartan Potassium 25 MG TABLET PO (07:35)
[2022-08-23] MEDS: Insulin Lispro 100 UNIT/ML 3 ML VIAL SUBCUT ×4 (07:36→11:26)
[2022-08-23] MEDS: 0.9 % Sodium Chloride Flush 3 ML SYRINGE IVFLUSH (07:36)
--- NOTE | 2022-08-23 08:47 | P.DS_ITS ---
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 Patient was recently ad mitted and discharged on 08/20 with NSTEMI.? She was initiated on IV heparin.? Cardiology deemed that she is not a good candidate for angiogram and patient was discharged after medical optimization.? Patient states that after being discharged she had generalized body pain, mainly abdominal discomfort.? She called EMS and the blood sugar was found to be significantly elevated and she was brought to the hospital.? Patient does not remember what medicine she took after discharge.? She denies fever, chills, chest discomfort, palpitations, shortness of breath, changes in bowel habits In the emergency department, patient's blood sugar was found to be in the 700s Hospital course: She prsented with generaliz pain, uncontrolled HTN and elevated blood sugar. She is non compliant with meds. CT of abdomen showed no acute finding, her blood sugar has significantly improved presently 247. [facility] which was checked to be ok. She has received dialysis in the hospital and should resume her usual days of TTS. Her biggest problem is non compliant with meds and this has bee Time Spent with Patient Time attestation: Total time managing care of this patient today ____ minutes. Discharge coordination time: Greater than 30 minutes Quality: Safe Use of Opioids Does Pt have an Active Cancer Diagnosis on the Problem List?: No Quality: Stroke Does the patient have a stroke diagnosis?: No Physical Exam Vital Signs: Vital Signs: Last Vital Signs Temp 98 F 08/23/22 07:03 Pulse 81 08/23/22 07:03 Resp 18 08/23/22 07:03 BP 158/76 H 08/23/22 07:03 Pulse Ox 96 08/23/22 07:03 O2 Del Method Room Air 08/23/22 07:03 O2 Flow Rate 94 08/21/22 19:41 BMI result Body Mass Index 36.4 DS: Data Data Completed and Pending Labs on day of discharge: Laboratory Results - last 24 hr 08/22/22 08/22/22 08/22/22 08:50 08:50 08:50 WBC 6.0 RBC 3.50 L Hgb 9.2 L Hct 30.1 L MCV 86.0 MCH 26.3 L MCHC 30.6 L RDW 19.9 H Plt Count 149 L MPV 11.8 Immature Gran % (Auto) 0.5 H Neut % (Auto) 84.5 H Lymph % (Auto) 6.5 L [place] % (Auto) 8.3 Eos % (Auto) 0.0 Baso % (Auto) 0.2 Lymph # (Auto) 0.4 L [place] # (Auto) 0.5 Eos # (Auto) 0.0 Baso # (Auto) 0.0 Abs Immat Gran (auto) 0.03 Absolute Neuts (auto) 5.1 Absolute Nucleated RBC 0.000 Nucleated RBC % (auto) 0.0 Sodium Cancelled 130 L Potassium Cancelled 4.3 Chloride Cancelled 103 Carbon Dioxide Cancelled 19 L Anion Gap Cancelled 12 BUN Cancelled 71 H Creatinine Cancelled 3.78 H Estim Creat Clear Calc Cancelled 25.2 Estimated GFR Cancelled 14 POC Glucose Random Glucose Cancelled 228 H Calcium Cancelled 8.0 L 08/22/22 08/22/22 08/22/22 13:24 16:11 20:14 WBC RBC Hgb Hct MCV MCH MCHC RDW Plt Count MPV Immature Gran % (Auto) Neut % (Auto) Lymph % (Auto) [place] % (Auto) Eos % (Auto) Baso % (Auto) Lymph # (Auto) [place] # (Auto) Eos # (Auto) Baso # (Auto) Abs Immat Gran (auto) Absolute Neuts (auto) Absolute Nucleated RBC Nucleated RBC % (auto) Sodium Potassium Chloride Carbon Dioxide Anion Gap BUN Creatinine Estim Creat Clear Calc Estimated GFR POC Glucose 109 162 H 223 H Random Glucose Calcium 08/23/22 07:02 WBC RBC Hgb Hct MCV MCH MCHC RDW Plt Count MPV Immature Gran % (Auto) Neut % (Auto) Lymph % (Auto) [place] % (Auto) Eos % (Auto) Baso % (Auto) Lymph # (Auto) [place] # (Auto) Eos # (Auto) Baso # (Auto) Abs Immat Gran (auto) Absolute Neuts (auto) Absolute Nucleated RBC Nucleated RBC % (auto) Sodium Potassium Chloride Carbon Dioxide Anion Gap BUN Creatinine Estim Creat Clear Calc Estimated GFR POC Glucose 247 H Random Glucose Calcium Discharge Plan Discharge Patient Disposition: Home, Self-Care Referrals: Abdon Beard MD [Primary Care Provider] - 1 Week Discharge Medications: Continued prednisone 10 mg tablet See Taper PO 1XD Taper: Prednisone 40 mg daily for 7 Days and 0 Hour 30 mg daily for 7 Days and 0 Hour 20 mg daily for 7 Days and 0 Hour 10 mg daily for 7 Days and 0 Hour 5 mg daily for 7 Days docusate sodium 100 mg capsule 100 mg PO DAILY PRN (Reason: constipation) oxycodone 5 mg tablet 5 mg PO Q6H PRN (Reason: severe pain) atorvastatin 40 mg Tablet 40 mg PO BEDTIME Qty: 90 0RF clopidogrel 75 mg Tablet 75 mg PO DAILY Qty: 90 0RF aspirin 81 mg Tablet,Delayed Release (Dr/Ec) 81 mg PO DAILY Qty: 90 0RF losartan 25 mg Tablet 25 mg PO DAILY Qty: 90 0RF Protocol: Hold for SBP< HOLD for SBP < : 90 omeprazole 40 mg Capsule,Delayed Release(Dr/Ec) 40 mg PO DAILY@0630 Qty: 90 0RF carvedilol 12.5 mg tablet 12.5 mg PO BID Qty: 120 0RF torsemide 20 mg tablet 40 mg PO BID Qty: 180 0RF nifedipine 60 mg tablet extended release 24hr 60 mg PO DAILY Qty: 90 0RF ferrous fumarate [Ferrocite] 324 mg (106 mg iron) tablet 324 mg PO DAILY Qty: 90 0RF glipizide 2.5 mg tablet extended release 24hr 2.5 mg PO DAILY Qty: 90 0RF Discharge Orders: Discharge Order (Routine); Ordered 08/23/22 Ordered By: Contreras Blanton Diet: Diabetic diet Activity on Discharge: As tolerated Stand Alone Forms: Patient Portal Discharge page Care Plan Goals: prevent frequent hospitalization and adherence to treatment and meds Health Concerns: CKD5 Hyperglycemia due to diabetes High blood pressure Plan of Treatment: take all medications as prescribed and follow up with your doctor in a week, go to dialysis as scheduled on tuesdays, and saturdays Assessment: as above
[2022-08-23] MEDS: ondansetron HCL 4 MG/2 ML VIAL IVPUSH (09:46)
--- NOTE | 2022-08-23 10:31 | PM.PNNEP ---
Subjective Subjective Date of Service: 08/23/22 Interval history: Events noted. Complaints of nausea Physical Exam Vital Signs: Vital Signs: Last Vital Signs Temp 98 F 08/23/22 07:03 Pulse 81 08/23/22 07:03 Resp 18 08/23/22 07:03 BP 158/76 H 08/23/22 07:03 Pulse Ox 96 08/23/22 07:03 O2 Del Method Room Air 08/23/22 07:03 O2 Flow Rate 94 08/21/22 19:41 BMI result Body Mass Index 36.4 Objective Data Labs 08/22/22 08:50 08/22/22 08:50 Labs: Laboratory Results - last 24 hr 08/22/22 08/22/22 08/22/22 13:24 16:11 20:14 POC Glucose 109 162 H 223 H 08/23/22 07:02 POC Glucose 247 H Procedures Date of Service Date of Service: 08/23/22 Assessment & Plan Assessment and plan (1) ESRD needing dialysis: Status: Acute Plan ESRD on dialysis. Clinically hypervolemic. Blood pressure is better controlled but still suboptimal due to hypovolemia. We will continue to remove fluid during dialysis as tolerated. From renal standpoint she can be discharged and I will arrange for outpatient dialysis per schedule. Time Spent With Patient Time: Total time managing care of this patient today ____ minutes. Progress Note: Quality Stroke Does the patient have a stroke diagnosis?: No
[2022-08-23 11:05] LABS: Glucose, Whole Blood 169 mg/dL (60-115)
== END 2022-08-23 12:45 | disposition home or self-care (01) ==
LOC: HO.ED 05:17 → HO.EDOVER 05:47 → HO.S3 07:18
PROVIDERS: Nurse Practitioner Acute Care; Admitting Provider Student in an Organized Health Care Education/Training Program; Emergency Provider Emergency Medicine Emergency Medical Services; PCP Internal Medicine; Visit Provider Internal Medicine
DX: I13.2 Hypertensive heart and chronic kidney disease with heart failure and with stage 5 chronic kidney disease, or end stage renal disease (principal); E11.22 Type 2 diabetes mellitus with diabetic chronic kidney disease; N18.6 End stage renal disease; D63.1 Anemia in chronic kidney disease; I50.20 Unspecified systolic (congestive) heart failure; Z99.2 Dependence on renal dialysis; Z79.4 Long term (current) use of insulin; Z79.899 Other long term (current) drug therapy
CPT/HCPCS: 36415; 71045; 74176; 76000; 80048; 80076; 82010; 82803; 82947; 83690; 83735; 84100; 84702; 85025; 90999; 93005; 96372; 96374; 96375; 96376; 99221; 99285; J0885; J1170; J1650; J2405

== ENCOUNTER 2022-08-25 13:28 | Inpatient (IN) | payer OTHER, SELFPAY ==
--- NOTE | 2022-08-25 | ECG_ITS ---
Test Reason : CP Blood Pressure : / mmHG Vent. Rate : 094 BPM Atrial Rate : 094 BPM P-R Int : 152 ms QRS Dur : 126 ms QT Int : 382 ms P-R-T Axes : 050 -04 046 degrees QTc Int : 477 ms Normal sinus rhythm Right bundle branch block Abnormal ECG When compared with ECG of 21-AUG-2022 01:46, T wave inversion no longer evident in Anterolateral leads Referred By: Generic ED Physician Electronically Signed By:Vinny Vera
--- NOTE | ~2022-08-25 | XR_ITS ---
EXAMINATION: XR CHEST CLINICAL INFORMATION: Pleuritic chest pain, rule out pneumonia COMPARISON: 08/21/2022 TECHNIQUE: Frontal view of the chest was obtained. FINDINGS: Right internal jugular dialysis catheter with internal tip in the superior vena cava. Heart, mediastinum, pulmonary vessels and lung reynolds within normal limits. Mildly elevated right hemidiaphragm is stable. No pneumothorax or effusions. XR/XR chest 1V IMPRESSION: No acute cardiopulmonary disease.
[2022-08-25 13:41] VITALS: BP 178/80; PULSE 95; O2SAT 99
[2022-08-25 13:42] VITALS: BP 171/85; PULSE 92; RESP 16; TEMP 37.1; O2SAT 100; BMI 36.0
[2022-08-25 13:48] LABS: Glucose, Whole Blood 99 mg/dL (60-115)
--- NOTE | 2022-08-25 14:26 | ED_ITS ---
HPI - Weakness General Chief complaint: Weakness Stated complaint: CP Time Seen by Provider: 08/25/22 14:17 History of Present Illness HPI Narrative: 32-year-old female who presents emergency department for evaluation chest pain. She states the chest pain started suddenly at 07:00 hours. She states the pain is worse with movement and worse with coughing. She also states that her tire body aches. She is a dialysis patient she states that she is dialyzed on Tuesdays and Saturdays. She states that she has had difficulty and has been retaining fluid in her arms and legs. She denied fever, chills, abdominal pain. The patient was admitted to the hospital on 08/13/2022 until 08/20/2022 for an NSTEMI with high sensitive troponin I max at 1209. I did take care for during that ED visit and the patient was complaining of bilateral pleuritic chest pain and generalized body pain. Also during that ED visit the patient had severely elevated blood pressure requiring treatment with IV labetalol. Patient will also seen in the emergency department on 08/21/2022 for abdominal pain, generalized body pain and elevated glucose. Patient was admitted to the hospital. Related Data Home Medications Medication Instructions Recorded Confirmed docusate sodium 100 mg capsule 100 mg PO DAILY PRN constipation 08/13/22 08/21/22 oxycodone 5 mg tablet 5 mg PO Q6H PRN severe pain 08/13/22 08/21/22 prednisone 10 mg tablet See Taper PO 1XD 08/13/22 08/21/22 Previous Rx's Medication Instructions Recorded aspirin 81 mg tablet,delayed 81 mg PO DAILY #90 tabs 08/20/22 release atorvastatin 40 mg tablet 40 mg PO BEDTIME #90 tabs 08/20/22 carvedilol 12.5 mg tablet 12.5 mg PO BID #120 tabs 08/20/22 clopidogrel 75 mg tablet 75 mg PO DAILY #90 tabs 08/20/22 ferrous fumarate 324 mg (106 mg 324 mg PO DAILY #90 tabs 08/20/22 iron) tablet (Ferrocite) glipizide 2.5 mg tablet, extended 2.5 mg PO DAILY #90 tabs 08/20/22 release 24 hr losartan 25 mg tablet 25 mg PO DAILY #90 tabs 08/20/22 nifedipine 60 mg tablet,extended 60 mg PO DAILY #90 tabs 08/20/22 release 24 hr omeprazole 40 mg capsule,delayed 40 mg PO DAILY@0630 #90 caps 08/20/22 release torsemide 20 mg tablet 40 mg PO BID #180 tabs 08/20/22 Allergies Allergy/AdvReac Type Severity Reaction Status Date / Time morphine [MORPHINE] Allergy Intermediate Itching Verified 08/21/22 01:18 azithromycin [From Zithromax] Allergy Hives Verified 08/21/22 01:18 gabapentin Allergy Facial Verified 08/21/22 01:18 Swelling tramadol Allergy Facial Verified 08/21/22 01:18 Swelling vancomycin Allergy Hives Verified 08/21/22 01:18 Review of Systems Review of Systems: Yes all other systems are reviewed and are negative [facility] Past Medical History Medical History Abnormal finding on echocardiogram Acute dyspnea Acute on chronic systolic and diastolic heart failure, NYHA class 3 Acute worsening of stage 3 chronic kidney disease MYNOR (acute kidney injury) Anemia Anemia in chronic kidney disease (CKD) Asthma Back pain Blind right eye Bone infection Cellulitis Cellulitis and abscess of foot delivery delivered Chest pain CHF (congestive heart failure) (~06/07/22) CKD (chronic kidney disease) CKD (chronic kidney disease) CKD (chronic kidney disease) stage 4, GFR 15-29 ml/min Depression with anxiety Diabetes Diabetic retinopathy DM foot ulcer Elevated troponin Essential hypertension Fever Generalized edema HFrEF (heart failure with reduced ejection fraction) HTN (hypertension) Hypertension (~06/10/22) Metabolic acidosis Migraine Osteomyelitis PAD (peripheral artery disease) Pleural effusion test positive test positive Sepsis Severe anemia Tachycardia Type 2 diabetes mellitus with hyperglycemia, with long-term current use of insulin Surgical History History of transmetatarsal amputation of foot S/P transmetatarsal amputation of foot Family History Family History Mother Coronary artery disease Myocardial infarction Stroke Diabetes mellitus Father Myocardial infarction Social History Social History Household Members: Family Household Members Other:: Sister, [id number], nephew Housing: House Do you presently have visiting nurse or other home services: No Alcohol intake: never Patient Tobacco Use Status: Never used Tobacco e-Cigarette/Vaping Use: Never Used Second Hand Smoke Exposure: No Advance Directives: Yes Advance Directives on File: Yes Advance Directives Date on File: 03/08/20 service: No Current occupational status: unemployed and disabled Gender identity: Female Physical Exam Vital Signs: Vital Signs: Last Vital Signs Temp 98.7 F 08/25/22 13:42 Pulse 91 08/25/22 15:04 Resp 16 08/25/22 15:04 BP 175/99 H 08/25/22 15:04 Pulse Ox 98 08/25/22 15:04 O2 Del Method Room Air 08/25/22 15:04 BMI result Body Mass Index 36.0 Const: Other: Awake, alert, female patient, appears to be in distress, answers questions appropriately HEENT: Head: Yes normal to inspection, Yes normocephalic and Yes atraumatic Ears: external ears normal General nose exam: Normal external nose present Face and sinus: Yes normal facial exam Mouth: Normal oral and palatal mucosa present Throat: Yes posterior oropharynx normal Eyes: Other: 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, only has minimal vision in the left eye Neck: Neck: Yes normal visual inspection, Yes no lymphadenopathy, Yes trachea midline and Yes supple Chest: Other: Patient has moderate to severe bilateral chest wall tenderness Resp: Effort & Inspection: normal respiratory effort and able to speak in complete sentences Auscultation: clear to auscultation bilaterally Cardio: Rate: regular rate Rhythm: regular rhythm Heart sounds: S1 normal heart sound present, S2 normal heart sound present and no murmurs GI: Inspection: Yes normal to inspection Palpation (GI): Soft to palpation, nontender and no guarding Auscultation: normal bowel sounds : General: Yes no CVA tenderness Back/Spine/Pelvis: Back: no CVA tenderness Skin: General skin exam: no rashes or lesions noted Neuro: Cranial nerves: Yes CN's II-XII intact bilaterally Cognition (Neuro): normal cognition Motor exam (neuro): 5/5 motor strength present throughout Extrem: Other: 1+ pitting edema bilaterally symmetric Medications Administered Discontinued Medications Generic Name Dose Route Start Last Admin Trade Name Freq PRN Reason Stop Dose Admin Hydromorphone HCl 1 mg 08/25/22 14:36 08/25/22 15:02 Hydromorphone Hcl 1 Mg/Ml Syringe IVPUSH 08/25/22 14:37 1 mg ONCE STA Administration Protocol Medical Decision Making Medical Decision Making [facility] Narrative: 31-year-old female with pertinent history of essential hypertension, congestive heart failure with reduced ejection fraction, insulin-dependent type 2 diabetes mellitus with diabetic retinopathy, mood disorder, PAD status post transmetatarsal amputation of foot, CKD stage 4, hypertensive urgency, NSTEMI ( 08/13/22) presents emergency department for evaluation bilateral pleuritic chest pain, diffuse body pain, fatigue and peripheral edema. Patient's vital signs did reveal an elevated blood pressure otherwise unremarkable 171/85. Patient's exam did reveal significant tenderness palpation of her anterior chest wall bilaterally. I did order: CBC, CMP, PT/INR, PTT, lipase, COVID-19, chest x- ray, EKG. Patient was ordered to get Dilaudid 1 mg IV and Zofran 4 mg IV. 1618: Patient's 12 EKG unchanged from her previous, right bundle-branch block. Laboratory evaluation is consistent with end-stage renal disease and anemia which chronic. Patient does have an elevated high sensitive troponin I at 62.9. This improved compared to 1200 when she had her NSTEMI recently. 3 hour repeat is due at 18:00 hours. Chest x-ray revealed no acute disease Patient is feeling better after the IV Dilaudid and Zofran. At the end of my shift, patient's care was turned over to my colleague, Dr. Ivette Kincaid. Differential Diagnosis Differential Diagnoses: The differential diagnosis associated with the presentation includes Differential diagnosis includes was not limited to myocardial infarction, myocardial ischemia, costochondritis, chest wall pain Admission/Observation Consideration of admission/observation: Escalation of care including admission/observation considered Lab Data [facility] Lab Attestation statement: I reviewed the patient's lab results. My interpretation patient's laboratory evaluation is as follows: Anemia with an H&H of 9.2 and 30-this is chronic. He elevated BUN creatinine 66 and 2.84-this is consistent with her end-stage renal disease. Potassium was normal at 5.0 which is reassuring. Troponin is elevated 62.9. COVID-19 was negative. 08/25/22 14:58 08/25/22 14:58 Labs: Lab Results 08/25/22 08/25/22 08/25/22 Range/Units 13:44 14:58 14:58 WBC 8.3 (4.8-10.8) X10*3/uL RBC 3.41 L (4.20-5.50) X10*6/uL Hgb 9.2 L (12.0-16.0) g/dl Hct 30.0 L (37.0-47.0) % MCV 88.0 (80.0-98.0) fL MCH 27.0 (27.0-33.0) pg MCHC 30.7 L (31.0-35.0) g/dl RDW 19.9 H (11.0-16.0) % Plt Count 211 D (160-400) X10*3/uL MPV 12.8 H (9.4-12.3) fL Immature Gran % (Auto) 0.8 H (0.0-0.4) % Neut % (Auto) 74.7 H (45-73) % Lymph % (Auto) 9.1 L (20-40) % Grady % (Auto) 13.2 H (2-11) % Eos % (Auto) 2.2 (0-4) % Baso % (Auto) 0.0 (0-2) % Lymph # (Auto) 0.8 L (1.2-4.9) X10*3/uL Grady # (Auto) 1.1 (0.1-1.2) X10*3/uL Eos # (Auto) 0.2 (0.0-0.4) X10*3/uL Baso # (Auto) 0.0 (0.0-0.2) X10*3/uL Abs Immat Gran (auto) 0.07 H (0.00-0.03) X10*3/uL Absolute Neuts (auto) 6.2 (2.0-8.3) x10*3/uL Absolute Nucleated RBC 0.000 (0.0-0.012) X10*3/uL Nucleated RBC % (auto) 0.0 (0.0-0.2) /100WBC POC Glucose 99 (60-115) mg/dL Troponin I High Sens 62.9 H* D (<3.5-17.0) ng/L COVID-19 (CARO) (Negative) COVID-19 Clin Com 08/25/22 Range/Units 14:58 WBC (4.8-10.8) X10*3/uL RBC (4.20-5.50) X10*6/uL Hgb (12.0-16.0) g/dl Hct (37.0-47.0) % MCV (80.0-98.0) fL MCH (27.0-33.0) pg MCHC (31.0-35.0) g/dl RDW (11.0-16.0) % Plt Count (160-400) X10*3/uL MPV (9.4-12.3) fL Immature Gran % (Auto) (0.0-0.4) % Neut % (Auto) (45-73) % Lymph % (Auto) (20-40) % Grady % (Auto) (2-11) % Eos % (Auto) (0-4) % Baso % (Auto) (0-2) % Lymph # (Auto) (1.2-4.9) X10*3/uL Grady # (Auto) (0.1-1.2) X10*3/uL Eos # (Auto) (0.0-0.4) X10*3/uL Baso # (Auto) (0.0-0.2) X10*3/uL Abs Immat Gran (auto) (0.00-0.03) X10*3/uL Absolute Neuts (auto) (2.0-8.3) x10*3/uL Absolute Nucleated RBC (0.0-0.012) X10*3/uL Nucleated RBC % (auto) (0.0-0.2) /100WBC POC Glucose (60-115) mg/dL Troponin I High Sens (<3.5-17.0) ng/L COVID-19 (CARO) Negative (Negative) COVID-19 Clin Com See Note Independent Interpretation I performed an independent interpretation of an: EKG and Plain X-Ray Interpretation: My independent interpretation patient's 12 EKG done at 13:32 hours is as follows: Normal sinus rhythm rate of 94, normal NM interval, prolonged QRS duration of 126 milliseconds, prolonged QTC duration of [address] segment elevation, no ST segment depression, right bundle-branch block. Compared to EKG dated 08/21/2022 there is no significant change. My independent interpretation of the patient's chest x-ray one view is as follows: Cardiomegaly, dialysis catheter in place, no acute disease Radiology Impression Discussion of test interpretation with radiology: I have reviewed the radiologist's reading. Radiologist Impression: XR chest 1V IMPRESSION: No acute cardiopulmonary disease. Dictated By:Abbie Venegas MD External Record Review External record reviewed: Inpatient record Chronic Conditions Patient?s care impacted by: Diabetes, Hypertension and Other (End-stage renal disease) Discharge Plan Discharge Clinical Impression: Chest pain, pleuritic, Myalgia, Edema, peripheral Prescriptions: No Action prednisone 10 mg tablet See Taper PO 1XD Taper: Prednisone 40 mg daily for 7 Days and 0 Hour 30 mg daily for 7 Days and 0 Hour 20 mg daily for 7 Days and 0 Hour 10 mg daily for 7 Days and 0 Hour 5 mg daily for 7 Days docusate sodium 100 mg capsule 100 mg PO DAILY PRN (Reason: constipation) oxycodone 5 mg tablet 5 mg PO Q6H PRN (Reason: severe pain) atorvastatin 40 mg Tablet 40 mg PO BEDTIME Qty: 90 0RF clopidogrel 75 mg Tablet 75 mg PO DAILY Qty: 90 0RF aspirin 81 mg Tablet,Delayed Release (Dr/Ec) 81 mg PO DAILY Qty: 90 0RF losartan 25 mg Tablet 25 mg PO DAILY Qty: 90 0RF Protocol: Hold for SBP< HOLD for SBP < : 90 omeprazole 40 mg Capsule,Delayed Release(Dr/Ec) 40 mg PO DAILY@0630 Qty: 90 0RF carvedilol 12.5 mg tablet 12.5 mg PO BID Qty: 120 0RF torsemide 20 mg tablet 40 mg PO BID Qty: 180 0RF nifedipine 60 mg tablet extended release 24hr 60 mg PO DAILY Qty: 90 0RF ferrous fumarate [Ferrocite] 324 mg (106 mg iron) tablet 324 mg PO DAILY Qty: 90 0RF glipizide 2.5 mg tablet extended release 24hr 2.5 mg PO DAILY Qty: 90 0RF
[2022-08-25] MEDS: HYDROmorphone HCl 1 MG/ML SYRINGE IVPUSH (15:02)
[2022-08-25 15:03] LABS: MANUAL DIFF FLAG NO
[2022-08-25 15:04] VITALS: BP 175/99; PULSE 91; RESP 16; O2SAT 98
[2022-08-25 15:10] LABS: Eosinophils Absolute Auto 0.2 X10*3/uL (0.0-0.4); Eosinophils Percent Auto 2.2 % (0-4); Hemoglobin 9.2 g/dl (12.0-16.0); Imm Gran Abs Auto 0.07 X10*3/uL (0.00-0.03); Imm Gran Pct Auto 0.8 % (0.0-0.4); Lymphocytes Absolute Auto 0.8 X10*3/uL (1.2-4.9); Lymphocytes Percent Auto 9.1 % (20-40); Mean Corpuscular HGB Conc 30.7 g/dl (31.0-35.0); Mean Platelet Volume 12.8 fL (9.4-12.3); Monocytes Absolute Auto 1.1 X10*3/uL (0.1-1.2); Monocytes Percent Auto 13.2 % (2-11); Neutrophils Absolute Auto 6.2 x10*3/uL (2.0-8.3); Neutrophils Percent Auto 74.7 % (45-73); Platelet Count 211 X10*3/uL (160-400); Red Blood Count 3.41 X10*6/uL (4.20-5.50); Red Cell Distribution Width 19.9 % (11.0-16.0); White Blood Count 8.3 X10*3/uL (4.8-10.8)
[2022-08-25 15:21] LABS: Prothrombin Time 11.8 SEC (10.0-13.1)
[2022-08-25 15:23] LABS: Partial Thromboplastin Time 27.3 SEC (26.0-36.4)
[2022-08-25 15:34] LABS: COVID-19 Test Negative (Negative); IDNOW Serial# 08D9AD1C
[2022-08-25 15:39] LABS: Troponin-I High Sensitivity 62.9 ng/L (<3.5-17.0)
[2022-08-25 15:54] LABS: Alanine Aminotransferase 22 U/L (0-31); Albumin Level 2.6 g/dL (3.5-5.0); Alkaline Phosphatase 68 U/L (39-117); Anion Gap 11 (12-20); Aspartate Amino Transferase 21 U/L (5-31); Blood Urea Nitrogen 66 mg/dL (9-16); Calcium 7.5 mg/dL (8.4-10.2); Carbon Dioxide 22 mmol/L (22-29); Chloride 110 mmol/L (96-108); Creatinine Clr Calc Pharmacy 32.3; Estimated Glomerular Filt Rate 19; Glucose Random 112 mg/dL (60-115); Lipase 53 U/L (8-78); Sodium 138 mmol/L (135-145); Total Protein 5.6 g/dL (6.5-8.0)
[2022-08-25] MEDS: ondansetron HCL 4 MG/2 ML VIAL IVPUSH ×2 (15:58→19:04)
[2022-08-25 16:27] VITALS: BP 155/100; PULSE 87; RESP 18; O2SAT 97
[2022-08-25 18:29] VITALS: BP 176/95; PULSE 91; RESP 16; O2SAT 97
--- NOTE | 2022-08-25 18:43 | PC.NURSE ---
Pt reports nausea and vomiting again stomach bile and water, sh declines po meds at this time
[2022-08-25 18:51] LABS: Troponin-I High Sensitivity 57.3 ng/L (<3.5-17.0)
[2022-08-25] MEDS: Sucralfate Oral Suspension 1 GM/10 ML ORAL.SUSP PO (19:15)
[2022-08-25] MEDS: oxyCODONE HCl Immed Release 5 MG TABLET PO (19:15)
--- NOTE | 2022-08-25 20:28 | PC.NURSE ---
Patient refused oxycodone medication. Medication scanned but not administered. Wasted in pxysis.
[2022-08-25] MEDS: diphenhydrAMINE HCL 50 MG/ML VIAL 25 MG IVPUSH (20:37)
[2022-08-25] MEDS: Metoclopramide HCl 10 MG/2 ML VIAL IVPUSH (20:38)
--- NOTE | 2022-08-25 21:26 | PC.NURSE ---
Patient medicated with Benadryl and Reglan IV push. Patient continues complaining of generalized body pain 7-9/10, but reports feeling less nauseous. VSS.
--- NOTE | 2022-08-25 21:30 | PHA.MEDREC ---
Pharmacy Consult ? Medication Reconciliation Pharmacy has completed the medication reconciliation. Spoke to patient to confirm meds. Patient states medications are the same as last admission (08/21/22), however with the addition of hydralazine. Prednisone taper is 10mg through 08/26, and then decreases to 5mg on 08/27 until 09/02.
--- NOTE | 2022-08-25 21:38 | PM.IMHP ---
History of Present Illness Date of Service: 08/25/22 Attending physician on admission: Babita Lopez Chief Complaint: nausea/vomiting, chest pain 31-year-old female with pertinent history of essential hypertension, congestive heart failure with reduced ejection fraction, insulin-dependent type 2 diabetes mellitus with diabetic retinopathy, mood disorder, PAD status post transmetatarsal amputation of foot, ESRD recently started on HD during recent hospitalizations for NSTEMI and then readmit for hyperglycemia with discharge 08/23, presented to the ED earlier today for evaluation of nausea, vomiting, and chest pain that started early this morning spontaneously. She describes a stabbing tightness in the left chest that is pleuritic in nature worse with inspiration. She states she also has a cough x 1 month and occasional shortness of breath. States she uses supplemental O2 at baseline at home but is not currently on any oxygen and is maintaining oximetry of 100%. She states this pain occurs both at rest and with exertion and does not radiate. She has also been nauseous with vomiting but denies any abdominal pain. She was recently started on hemodialysis and was scheduled for 1st outpatient session tomorrow. She has been afebrile. Denies lightheadedness, diaphoresis, palpiations, or retrosternal chest pressure. On arrival, hemodynamically stable. Hypertensive to 175/95, mild tachycardia 91, no fevers or hypoxia. There is no leukocytosis. She has a stable normocytic anemia with H/H 9.2/30.0%. Creatinine 2.84, improved from baseline, BUN 66. Electrolytes within normal limits. Initial troponin 62.9, repeat 57.3. COVID-19 negative. CXR negative for any acute cardiopulmonary disease. EKG shows NSR and right bundle branch block without any ST elevations or depressions. She reports compliance with medications. Denies any alcohol use, illicit drug use, or smoking. In the ED has been given 1 mg Dilaudid, ondansetron 4 mg x 2, 25 mg Benadryl, 1 g Carafate, 10 mg Reglan, and 5 mg oxycodone. Review of Systems Review of Systems: General: No fevers, malaise, unintentional weight loss HEENT: No blurred vision, diplopia. No sore throat, nasal congestion, rhinorrhea, sinus pain, ear pain Cardiovascular: No palpitations. +chest pain, +leg edema Respiratory: + shortness of breath,+ cough. No wheezing GI: + nausea, vomiting. No abdominal pain, diarrhea, constipation, melena, hematochezia : No dysuria, hematuria, increased urinary frequency, decreased urinary output MSK: No myalgia, back pain Neuro: No headaches, weakness, paresthesias Skin: No rashes or lesions [facility] Medical History (Updated 08/25/22 @ 22:04 by JOVON Owens) Abnormal finding on echocardiogram Acute dyspnea Acute on chronic systolic and diastolic heart failure, NYHA class 3 Acute worsening of stage 3 chronic kidney disease MYNOR (acute kidney injury) Anemia Anemia in chronic kidney disease (CKD) Asthma Atypical chest pain Back pain Blind right eye Bone infection Cellulitis Cellulitis and abscess of foot delivery delivered Chest pain CHF (congestive heart failure) (~06/07/22) CKD (chronic kidney disease) CKD (chronic kidney disease) CKD (chronic kidney disease) stage 4, GFR 15-29 ml/min Depression with anxiety Diabetes Diabetic retinopathy DM foot ulcer Elevated troponin Essential hypertension Fever Generalized edema HFrEF (heart failure with reduced ejection fraction) HTN (hypertension) Hypertension (~06/10/22) Metabolic acidosis Migraine Osteomyelitis PAD (peripheral artery disease) Pleural effusion test positive test positive Sepsis Severe anemia Tachycardia Type 2 diabetes mellitus with hyperglycemia, with long-term current use of insulin Family History Mother Coronary artery disease Myocardial infarction Stroke Diabetes mellitus Father Myocardial infarction Surgical History History of transmetatarsal amputation of foot S/P transmetatarsal amputation of foot Social History Household Members: Family Household Members Other:: Sister, [id number], nephew Housing: House Do you presently have visiting nurse or other home services: No Alcohol intake: never Patient Tobacco Use Status: Never used Tobacco Smoked in Last 30 Days: No e-Cigarette/Vaping Use: Never Used Second Hand Smoke Exposure: No Use of substances other than those prescribed or required for medical reasons: No Advance Directives: Yes Advance Directives on File: Yes Advance Directives Date on File: 03/08/20 Patient : No service: No Current occupational status: unemployed and disabled Gender identity: Female Meds Allergies Allergy/AdvReac Type Severity Reaction Status Date / Time morphine [MORPHINE] Allergy Intermediate Itching Verified 08/21/22 01:18 azithromycin [From Zithromax] Allergy Hives Verified 08/21/22 01:18 gabapentin Allergy Facial Verified 08/21/22 01:18 Swelling tramadol Allergy Facial Verified 08/21/22 01:18 Swelling vancomycin Allergy Hives Verified 08/21/22 01:18 Active Medications: Current Medications Acetaminophen (Acetaminophen 325 Mg Tablet) 650 mg PO Q6H PRN PRN Reason: Pain, Mild (Pain Scale 1-3) Aspirin (Aspirin Enteric Coated 81 Mg Tablet.) 81 mg PO DAILY [facility] Atorvastatin Calcium (Atorvastatin Calcium 40 Mg Tablet) 40 mg PO BEDTIME [facility] Carvedilol (Carvedilol 12.5 Mg Tablet) 12.5 mg PO BID [facility]; Protocol Clopidogrel Bisulfate (Clopidogrel Bisulfate 75 Mg Tablet) 75 mg PO DAILY [facility] Docusate Sodium (Docusate Sodium 100 Mg Capsule) 100 mg PO DAILY PRN PRN Reason: Constipation Docusate Sodium (Docusate Sodium 100 Mg Capsule) 100 mg PO DAILY PRN PRN Reason: constipation Famotidine (Famotidine/Pf 20 Mg/2 Ml Vial) 20 mg IVPUSH BID [facility] Hydralazine HCl (Hydralazine Hcl 25 Mg Tablet) 75 mg PO TID [facility]; Protocol Losartan Potassium (Losartan Potassium 25 Mg Tablet) 25 mg PO DAILY [facility]; Protocol Nifedipine (Nifedipine Er 60 Mg Tab.Er.24) 60 mg PO DAILY [facility]; Protocol Non-Formulary Medication (Ferrous Fumarate [Ferrocite]) 324 mg PO DAILY [facility] Omeprazole (Omeprazole 40 Mg Capsule.) 40 mg PO DAILY@0630 [facility] Ondansetron HCl (Ondansetron Hcl 4 Mg/2 Ml Vial) 4 mg IVPUSH Q8H PRN PRN Reason: Nausea and Vomiting Oxycodone HCl (Oxycodone Hcl Immed Release 5 Mg Tablet) 5 mg PO Q6H PRN PRN Reason: Pain, Severe (Pain Scale 7-10) Prednisone (Prednisone 10 Mg Tablet) 0 mg PO 1XD [facility]; Taper Stop: 09/29/22 21:44 Sodium Chloride (0.9 % Sodium Chloride Flush 3 Ml Syringe) 3 ml IVFLUSH QSHIFT [facility] Torsemide (Torsemide 20 Mg Tablet) 40 mg PO BID [facility]; Protocol Home Medications Medication Instructions Recorded Confirmed Last Taken Type docusate sodium 100 mg capsule 100 mg PO DAILY PRN constipation 08/13/22 08/25/22 Unknown History oxycodone 5 mg tablet 5 mg PO Q6H PRN severe pain 08/13/22 08/25/22 Unknown History prednisone 10 mg tablet See Taper PO 1XD 08/13/22 08/25/22 08/24/22 History hydralazine 25 mg tablet 75 mg PO TID 08/25/22 08/25/22 08/24/22 History Physical Exam Vital Signs and Narrative: Vital Signs: Last Vital Signs Temp 98.7 F 08/25/22 13:42 Pulse 91 08/25/22 18:29 Resp 16 08/25/22 18:29 BP 176/95 H 08/25/22 18:29 Pulse Ox 97 08/25/22 18:29 O2 Del Method Room Air 08/25/22 18:29 BMI result Body Mass Index 36.0 Constitutional - Awake and Alert, No apparent distress Eyes - PERRLA, EOMI Cardiovascular - S1S2, RRR, No edema Respiratory - Normal lung expansion, Normal respiratory effort, No respiratory distress, CTA bilaterally Chest - reproducible left sided ttp Gastrointestinal -epigastric ttp without guarding or rebound. ND; +BS - No CVA tenderness Extremities - no calf tenderness bilaterally, no swelling Skin - Warm/Dry Neurological - Alert & oriented x3 Psychological - Appropriate affect Results Labs 08/25/22 14:58 08/25/22 15:33 Labs: Laboratory Results - last 24 hr 08/25/22 08/25/22 08/25/22 13:44 14:58 14:58 MCV 88.0 MCH 27.0 MCHC 30.7 L RDW 19.9 H Plt Count 211 D MPV 12.8 H Immature Gran % (Auto) 0.8 H Neut % (Auto) 74.7 H Lymph % (Auto) 9.1 L [place] % (Auto) 13.2 H Eos % (Auto) 2.2 Baso % (Auto) 0.0 Lymph # (Auto) 0.8 L [place] # (Auto) 1.1 Eos # (Auto) 0.2 Baso # (Auto) 0.0 Abs Immat Gran (auto) 0.07 H Absolute Neuts (auto) 6.2 Absolute Nucleated RBC 0.000 Nucleated RBC % (auto) 0.0 PT 11.8 INR 1.0 APTT 27.3 D Anion Gap Estim Creat Clear Calc Estimated GFR POC Glucose 99 Random Glucose Calcium Total Bilirubin AST ALT Alkaline Phosphatase Troponin I High Sens Total Protein Albumin Lipase COVID-19 ([facility]) COVID-19 Clin Com 08/25/22 08/25/22 08/25/22 14:58 14:58 15:33 MCV MCH MCHC RDW Plt Count MPV Immature Gran % (Auto) Neut % (Auto) Lymph % (Auto) [place] % (Auto) Eos % (Auto) Baso % (Auto) Lymph # (Auto) [place] # (Auto) Eos # (Auto) Baso # (Auto) Abs Immat Gran (auto) Absolute Neuts (auto) Absolute Nucleated RBC Nucleated RBC % (auto) PT INR APTT Anion Gap 11 L Estim Creat Clear Calc 32.3 Estimated GFR 19 POC Glucose Random Glucose 112 Calcium 7.5 L D Total Bilirubin 1.0 AST 21 ALT 22 Alkaline Phosphatase 68 Troponin I High Sens 62.9 H* D Total Protein 5.6 L Albumin 2.6 L Lipase 53 COVID-19 (CARO) Negative COVID-19 Clin Com See Note 08/25/22 18:07 MCV MCH MCHC RDW Plt Count MPV Immature Gran % (Auto) Neut % (Auto) Lymph % (Auto) [place] % (Auto) Eos % (Auto) Baso % (Auto) Lymph # (Auto) [place] # (Auto) Eos # (Auto) Baso # (Auto) Abs Immat Gran (auto) Absolute Neuts (auto) Absolute Nucleated RBC Nucleated RBC % (auto) PT INR APTT Anion Gap Estim Creat Clear Calc Estimated GFR POC Glucose Random Glucose Calcium Total Bilirubin AST ALT Alkaline Phosphatase Troponin I High Sens 57.3 H* Total Protein Albumin Lipase COVID-19 ([facility]O) COVID-19 Clin Com Imaging Radiologist's Impressions: Impressions Chest X-Ray 08/25/22 15:10 IMPRESSION: No acute cardiopulmonary disease. Assessment and Plan (1) Atypical chest pain: Status: Acute (2) Intractable nausea and vomiting: Status: Acute Plan 31-year-old female with pertinent history of essential hypertension, congestive heart failure with reduced ejection fraction, insulin-dependent type 2 diabetes mellitus with diabetic retinopathy, mood disorder, PAD status post transmetatarsal amputation of foot, ESRD recently started on HD during recent hospitalizations for NSTEMI and then readmit for hyperglycemia with discharge 08/23 to be observed for intractable nausea/vomiting. #Intractale nausea/vomitng -?r/t gastritis vs gastroparesis -Continue PO PPI -famotidine b.i.d., ondansetron p.r.n. -Tylenol oxycodone for severe pain p.r.n. -clear liquid diet, advanced to diabetic/cardiac as tolerated -consider Gastroenterology consult if not improving -denies any drug use including marijuana, no alcohol use, no bad foods # atypical chest pain -troponins flat, EKG without evidence of acute ischemia -left-sided, pleuritic in nature, severe with associated cough and occasional shortness of breath -CXR negative -will check bilateral venous duplex and V/Q scan to rule out VTE -give single dose therapeutic Lovenox #ESRD -Creat improved from baseline, lytes normal -Nephrology consult # insulin-dependent type 2 diabetes -hold glipizide -Humalog on sliding scale -POC glucose -advanced a diabetic diet as tolerated # CAD with recent NSTEMI 08/14/22 -no anginal chest pain currently. EKG nonischemic, trips flat -continue dual antiplatelet therapy, carvedilol, atorvastatin # hypertension -continue home meds # mood disorder -continue home meds # PAD -continue aspirin/Plavix #HFrEF -no acute exacerbation -continue torsemide #Anemia of chronic disease -H/H baseline, above transfusion threshold -continue ferrous sulfate DVT prophylaxis-single dose therapeutic Lovenox given, adjust as appropriate Full code Time Spent With Patient Time: Total time managing care of this patient today ____ minutes. Quality Stroke Does the patient have a stroke diagnosis?: No VTE Prior VTE?: No VTE Risk Level:: Medical - moderate - high VTE Device Contraindication: Treatment Not Indicated VTE Drug Contraindication: N/A - Med Ordered
[2022-08-25] MEDS: hydrALAZINE HCl 25 MG TABLET 75 MG PO (21:59)
[2022-08-25] MEDS: Torsemide 20 MG TABLET 40 MG PO (22:00)
[2022-08-25] MEDS: Enoxaparin Sodium 100 MG/ML SYRINGE SUBCUT (22:00)
[2022-08-25] MEDS: Atorvastatin Calcium 40 MG TABLET PO (22:00)
[2022-08-25] MEDS: Famotidine/PF 20 MG/2 ML VIAL IVPUSH (22:00)
[2022-08-25] MEDS: carvediloL 12.5 MG TABLET PO (22:00)
[2022-08-25 23:26] VITALS: BP 130/106; PULSE 91; RESP 19; O2SAT 96
[2022-08-26] VITALS (7 sets, daily range): BP systolic 129–208; BP diastolic 63–114; PULSE 90–99; RESP 15–19; TEMP 36.3–37.1; O2SAT 92–97
[2022-08-26] MEDS: HYDROmorphone HCl 0.5 MG/0.5 ML SYRINGE IVPUSH (01:01)
[2022-08-26] MEDS: 0.9 % Sodium Chloride Flush 3 ML SYRINGE IVFLUSH ×3 (01:04→19:54)
[2022-08-26] MEDS: Omeprazole 40 MG CAPSULE.DR PO (06:22)
[2022-08-26 06:54] LABS: MANUAL DIFF FLAG NO
[2022-08-26 06:57] LABS: Basophils Percent Auto 0.2 % (0-2); Eosinophils Absolute Auto 0.1 X10*3/uL (0.0-0.4); Eosinophils Percent Auto 1.5 % (0-4); Hematocrit 27.8 % (37.0-47.0); Hemoglobin 8.6 g/dl (12.0-16.0); Imm Gran Abs Auto 0.04 X10*3/uL (0.00-0.03); Imm Gran Pct Auto 0.6 % (0.0-0.4); Lymphocytes Absolute Auto 0.7 X10*3/uL (1.2-4.9); Lymphocytes Percent Auto 11.2 % (20-40); Mean Corpuscular HGB Conc 30.9 g/dl (31.0-35.0); Mean Corpuscular Hemoglobin 26.7 pg (27.0-33.0); Mean Corpuscular Volume 86.3 fL (80.0-98.0); Monocytes Absolute Auto 0.8 X10*3/uL (0.1-1.2); Monocytes Percent Auto 11.9 % (2-11); Neutrophils Percent Auto 74.6 % (45-73); Platelet Count 167 X10*3/uL (160-400); Red Blood Count 3.22 X10*6/uL (4.20-5.50); White Blood Count 6.6 X10*3/uL (4.8-10.8)
[2022-08-26 07:19] LABS: Anion Gap 14 (12-20); Blood Urea Nitrogen 62 mg/dL (9-16); Carbon Dioxide 20 mmol/L (22-29); Chloride 107 mmol/L (96-108); Creatinine Clr Calc Pharmacy 29.6; Estimated Glomerular Filt Rate 17; Glucose Random 94 mg/dL (60-115); Potassium 5.2 mmol/L (3.3-5.1); Sodium 136 mmol/L (135-145)
[2022-08-26] MEDS: Famotidine/PF 20 MG/2 ML VIAL IVPUSH ×2 (09:19→19:52)
[2022-08-26] MEDS: ondansetron HCL 4 MG/2 ML VIAL IVPUSH (09:23)
[2022-08-26] MEDS: Ferrous Sulfate 324 MG TABLET.DR PO (09:36)
[2022-08-26] MEDS: NIFEdipine ER 60 MG TAB.ER.24 PO (09:36)
[2022-08-26] MEDS: Torsemide 20 MG TABLET 40 MG PO ×2 (09:36→19:52)
[2022-08-26] MEDS: Isosorbide Mononitrate 30 MG TAB.ER.24H 15 MG PO (09:36)
[2022-08-26] MEDS: hydrALAZINE HCl 25 MG TABLET 75 MG PO ×3 (09:36→19:52)
[2022-08-26] MEDS: Losartan Potassium 25 MG TABLET PO (09:36)
[2022-08-26] MEDS: carvediloL 12.5 MG TABLET 25 MG PO ×2 (09:37→19:53)
[2022-08-26] MEDS: predniSONE 10 MG TABLET 5 MG PO (09:37)
[2022-08-26] MEDS: Aspirin Enteric Coated 81 MG TABLET.DR PO (09:37)
[2022-08-26] MEDS: Clopidogrel Bisulfate 75 MG TABLET PO (09:38)
[2022-08-26] MEDS: HYDROmorphone HCl 0.5 MG/0.5 ML SYRINGE 0.25 MG IVPUSH ×4 (09:57→22:41)
[2022-08-26] MEDS: Labetalol HCL 100 MG/20 ML VIAL 10 MG IVPUSH (09:57)
[2022-08-26] MEDS: Lidocaine 4 % Patch ADH..PATCH 1 PATCH TRANSDERMA (09:57)
[2022-08-26] MEDS: Sodium Polystyrene Sulfon/Sorb 15 GM/60 ML ORAL.SUSP 30 GM PO (10:00)
--- NOTE | 2022-08-26 10:17 | HO.PM.IMPN ---
Subjective Subjective Date of Service: 08/26/22 Interval History: seen and evaluated this morning complaining of generalized pain and nausea refusing to take her BP pills, BP of 210/130 Negative US for DVT no other overnight events Review of Systems Review of Systems: Yes all other systems are reviewed and are negative Physical Exam Vital Signs: Vital Signs: Last Vital Signs Temp 98.7 F 08/26/22 09:16 Pulse 99 08/26/22 09:16 Resp 18 08/26/22 09:16 BP 208/114 H 08/26/22 09:16 Pulse Ox 97 08/26/22 09:16 O2 Del Method Room Air 08/26/22 09:16 BMI result Body Mass Index 36.0 Const: Other: Constitutional : Awake, interactive, restless Neck : Normal inspection, Supple Cardiovascular : RRR, elevated? JVP, trace lower extremity edema Respiratory : fair bilateral air entry,? basal fine crackles, wheezes or rhonchi Gastrointestinal:? soft, lax, Normal bowel sounds, Non tender Skin : Warm, Dry. PErmacath place clean with no erthyma Neurological : Alert & oriented x3, No focal deficit Objective Data Active Medications Acetaminophen (Acetaminophen 325 Mg Tablet) 650 mg PO Q6H PRN PRN Reason: Pain, Mild (Pain Scale 1-3) Aspirin (Aspirin Enteric Coated 81 Mg Tablet.) 81 mg PO DAILY [facility] Last Admin: 08/26/22 09:37 Dose: 81 mg Documented By: MARGARET Atorvastatin Calcium (Atorvastatin Calcium 40 Mg Tablet) 40 mg PO BEDTIME [facility] Last Admin: 08/25/22 22:00 Dose: 40 mg Documented By: CARIDAD Carvedilol (Carvedilol 12.5 Mg Tablet) 25 mg PO BID [facility]; Protocol Last Admin: 08/26/22 09:37 Dose: 25 mg Documented By: MARGARET Clopidogrel Bisulfate (Clopidogrel Bisulfate 75 Mg Tablet) 75 mg PO DAILY [facility] Last Admin: 08/26/22 09:38 Dose: 75 mg Documented By: MARGARET Dextrose (Dextrose 50 % 25 Gm/50 Ml Syringe) 25 gm IVPUSH Q15M PRN; Protocol PRN Reason: per Hypoglycemia Standing Ord. Docusate Sodium (Docusate Sodium 100 Mg Capsule) 100 mg PO DAILY PRN PRN Reason: Constipation Famotidine (Famotidine/Pf 20 Mg/2 Ml Vial) 20 mg IVPUSH BID [facility] Last Admin: 08/26/22 09:19 Dose: 20 mg Documented By: MARGARET Ferrous Sulfate (Ferrous Sulfate 324 Mg Tablet.) 324 mg PO DAILY [facility] Last Admin: 08/26/22 09:36 Dose: 324 mg Documented By: MARGARET Glucose (Glucose Gel 15 Gm Gel..Gram.) 15 gm PO Q15M PRN; Protocol PRN Reason: per Hypoglycemia Standing Ord. Hydralazine HCl (Hydralazine Hcl 25 Mg Tablet) 75 mg PO TID [facility]; Protocol Last Admin: 08/26/22 09:36 Dose: 75 mg Documented By: MARGARET Hydromorphone HCl (Hydromorphone Hcl 0.5 Mg/0.5 Ml Syringe) 0.25 mg IVPUSH Q4H PRN; Protocol PRN Reason: Pain, Severe (Pain Scale 7-10) Last Admin: 08/26/22 09:57 Dose: 0.25 mg Documented By: MARGARET Insulin Human Lispro (Insulin Lispro 100 Unit/Ml 3 Ml Vial) 0 unit SUBCUT QIDACHS [facility]; Protocol Last Admin: 08/26/22 07:38 Dose: Not Given Documented By: CORRY Non-Admin Reason: No Insulin Coverage Isosorbide Mononitrate (Isosorbide Mononitrate 30 Mg Tab.Er.24h) 15 mg PO DAILY [facility]; Protocol Last Admin: 08/26/22 09:36 Dose: 15 mg Documented By: MARGARET Lidocaine (Lidocaine 4 % Patch Adh..Patch) 1 patch TRANSDERMA DAILY [facility]; Protocol Last Admin: 08/26/22 09:57 Dose: 1 patch Documented By: MARGARET Losartan Potassium (Losartan Potassium 25 Mg Tablet) 25 mg PO DAILY [facility]; Protocol Last Admin: 08/26/22 09:36 Dose: 25 mg Documented By: MARGARET Nifedipine (Nifedipine Er 60 Mg Tab.Er.24) 60 mg PO DAILY [facility]; Protocol Last Admin: 08/26/22 09:36 Dose: 60 mg Documented By: MARGARET Omeprazole (Omeprazole 40 Mg Capsule.) 40 mg PO DAILY@0630 [facility] Last Admin: 08/26/22 06:22 Dose: 40 mg Documented By: ROZINA Ondansetron HCl (Ondansetron Hcl 4 Mg/2 Ml Vial) 4 mg IVPUSH Q8H PRN PRN Reason: Nausea and Vomiting Last Admin: 08/26/22 09:23 Dose: 4 mg Documented By: MARGARET Oxycodone HCl (Oxycodone Hcl Immed Release 5 Mg Tablet) 5 mg PO Q6H PRN PRN Reason: Pain, Severe (Pain Scale 7-10) Prednisone (Prednisone 10 Mg Tablet) 10 mg PO DAILY [facility]; Taper Stop: 09/03/22 08:59 Last Admin: 08/26/22 09:37 Dose: 10 mg Documented By: MARGARET Sodium Chloride (0.9 % Sodium Chloride Flush 3 Ml Syringe) [facility] Admin: 08/26/22 09:29 Dose: 3 ml Documented By: MARGARET Torsemide (Torsemide 20 Mg Tablet) 40 mg PO BID [facility]; Protocol Last Admin: 08/26/22 09:36 Dose: 40 mg Documented By: MARGARET Labs 08/26/22 06:44 08/26/22 06:45 Labs: Laboratory Results - last 24 hr 08/25/22 08/25/22 08/25/22 13:44 14:58 14:58 MCV 88.0 MCH 27.0 MCHC 30.7 L RDW 19.9 H Plt Count 211 D MPV 12.8 H Immature Gran % (Auto) 0.8 H Neut % (Auto) 74.7 H Lymph % (Auto) 9.1 L [place] % (Auto) 13.2 H Eos % (Auto) 2.2 Baso % (Auto) 0.0 Lymph # (Auto) 0.8 L [place] # (Auto) 1.1 Eos # (Auto) 0.2 Baso # (Auto) 0.0 Abs Immat Gran (auto) 0.07 H Absolute Neuts (auto) 6.2 Absolute Nucleated RBC 0.000 Nucleated RBC % (auto) 0.0 PT 11.8 INR 1.0 APTT 27.3 D Anion Gap Estim Creat Clear Calc Estimated GFR POC Glucose 99 Random Glucose Calcium Total Bilirubin AST ALT Alkaline Phosphatase Troponin I High Sens Total Protein Albumin Lipase COVID-19 ([facility]) COVID-19 Clin Com 06/08/25/22 08/25/22 14:58 14:58 15:33 MCV MCH MCHC RDW Plt Count MPV Immature Gran % (Auto) Neut % (Auto) Lymph % (Auto) [place] % (Auto) Eos % (Auto) Baso % (Auto) Lymph # (Auto) [place] # (Auto) Eos # (Auto) Baso # (Auto) Abs Immat Gran (auto) Absolute Neuts (auto) Absolute Nucleated RBC Nucleated RBC % (auto) PT INR APTT Anion Gap 11 L Estim Creat Clear Calc 32.3 Estimated GFR 19 POC Glucose Random Glucose 112 Calcium 7.5 L D Total Bilirubin 1.0 AST 21 ALT 22 Alkaline Phosphatase 68 Troponin I High Sens 62.9 H* D Total Protein 5.6 L Albumin 2.6 L Lipase 53 COVID-19 ([facility]) Negative COVID-19 Clin Com See Note 08/25/22 08/26/22 08/26/22 18:07 06:44 06:45 MCV 86.3 MCH 26.7 L MCHC 30.9 L RDW 20.0 H Plt Count 167 MPV 12.0 Immature Gran % (Auto) 0.6 H Neut % (Auto) 74.6 H Lymph % (Auto) 11.2 L [place] % (Auto) 11.9 H Eos % (Auto) 1.5 Baso % (Auto) 0.2 Lymph # (Auto) 0.7 L [place] # (Auto) 0.8 Eos # (Auto) 0.1 Baso # (Auto) 0.0 Abs Immat Gran (auto) 0.04 H Absolute Neuts (auto) 5.0 Absolute Nucleated RBC 0.000 Nucleated RBC % (auto) 0.0 PT INR APTT Anion Gap 14 Estim Creat Clear Calc 29.6 Estimated GFR 17 POC Glucose Random Glucose 94 Calcium 8.0 L D Total Bilirubin AST ALT Alkaline Phosphatase Troponin I High Sens 57.3 H* Total Protein Albumin Lipase COVID-19 ([facility]) COVID-19 Clin Com 08/26/22 07:31 MCV MCH MCHC RDW Plt Count MPV Immature Gran % (Auto) Neut % (Auto) Lymph % (Auto) [place] % (Auto) Eos % (Auto) Baso % (Auto) Lymph # (Auto) [place] # (Auto) Eos # (Auto) Baso # (Auto) Abs Immat Gran (auto) Absolute Neuts (auto) Absolute Nucleated RBC Nucleated RBC % (auto) PT INR APTT Anion Gap Estim Creat Clear Calc Estimated GFR POC Glucose 96 Random Glucose Calcium Total Bilirubin AST ALT Alkaline Phosphatase Troponin I High Sens Total Protein Albumin Lipase COVID-19 ([facility]) COVID-19 Clin Com Assessment and Plan (1) Intractable nausea and vomiting: Status: Acute (2) Atypical chest pain: Status: Acute (3) ESRD needing dialysis: Status: Acute (4) Hypertensive urgency: Status: Acute Plan 31-year-old female with pertinent history of essential hypertension, congestive heart failure with reduced ejection fraction, insulin-dependent type 2 diabetes mellitus with diabetic retinopathy, mood disorder, PAD status post transmetatarsal amputation of foot, ESRD recently started on HD during recent hospitalizations for NSTEMI and then readmit for hyperglycemia with discharge 08/23 to be observed for intractable nausea/vomiting. #Intractale nausea/vomitng questionable gastritis vs gastroparesis Continue PO PPI famotidine b.i.d IV Ondansetron p.r.n. Dilaudid severe pain p.r.n. clear liquid diet, advanced to diabetic/cardiac as tolerated consider Gastroenterology consult if not improving # atypical chest pain troponins flat, EKG without evidence of acute ischemia CXR negative Negative bilateral venous duplex #ESRD on HD Continue HD as scheduled Nephrology consult # insulin-dependent type 2 diabetes Humalog on sliding scale POC glucose advanced a diabetic diet as tolerated # CAD with recent NSTEMI 08/14/22 no anginal chest pain currently. EKG nonischemic, trips flat continue dual antiplatelet therapy, carvedilol, atorvastatin # hypertensive urgency BP of 210/130 this morning, patient refused her meds Give IV Labetalol continue home meds # mood disorder continue home meds # PAD continue aspirin/Plavix #HFrEF no acute exacerbation continue torsemide #Anemia of chronic disease H/H baseline, above transfusion threshold continue ferrous sulfate DVT prophylaxis Lovenox Time Spent With Patient Time: Total time managing care of this patient today ____ minutes. Quality Stroke Does the patient have a stroke diagnosis?: No VTE Prior VTE?: No VTE Risk Level:: Medical - moderate - high VTE Device Contraindication: Treatment Not Indicated VTE Drug Contraindication: N/A - Med Ordered
[2022-08-26] MEDS: Insulin Lispro 100 UNIT/ML 3 ML VIAL SUBCUT ×2 (12:01→20:02)
--- NOTE | 2022-08-26 12:34 | PM.CNNEP ---
History of Present Illness Reason for Consult Consult date: 08/27/22 Reason for consult: ESRD Chief Complaint Chief complaint: intractable nausea and vomiting, chest pain History of Present Illness Narrative: 31-year-old female with pertinent history of essential hypertension, congestive heart failure with reduced ejection fraction, insulin-dependent type 2 diabetes mellitus with diabetic retinopathy, mood disorder, PAD status post transmetatarsal amputation of foot, ESRD recently started on HD during recent hospitalizations for NSTEMI and then readmit for hyperglycemia with discharge 08/23, presented to the ED earlier today for evaluation of nausea, vomiting, and chest pain that started early this morning spontaneously.? She describes a stabbing tightness in the left chest that is pleuritic in nature worse with inspiration.? She states she also has a cough x 1 month and occasional shortness of breath.? States she uses supplemental O2 at baseline at home but is not currently on any oxygen and is maintaining oximetry of 100%.? She states this pain occurs both at rest and with exertion and does not radiate.? She has also been nauseous with vomiting but denies any abdominal pain.? She was recently started on hemodialysis and was scheduled for 1st outpatient session tomorrow.? She has been afebrile. Denies lightheadedness, diaphoresis, palpiations, or retrosternal chest pressure. SHE MISSED HER USUAL DIALYSIS TREATMENTS OUTPATIENT. MY STAFF TRIED TO CALL HER MULTIPLE TIMES BUT THEY ARE UNABLE TO LOCATE HER. Review of Systems Review of Systems No headache. No nausea vomiting. No abdominal pain. No shortness of breath. No cough. No dysuria urgency or hematuria. No edema. No rash. SHE HAS PAIN EVERYWHERE PMF[facility] Past Medical History Medical History (Updated 08/26/22 @ 10:26 by Cheyenne Sears MD) Abnormal finding on echocardiogram Acute dyspnea Acute on chronic systolic and diastolic heart failure, NYHA class 3 Acute worsening of stage 3 chronic kidney disease MYNOR (acute kidney injury) Anemia Anemia in chronic kidney disease (CKD) Asthma Atypical chest pain Back pain Blind right eye Bone infection Cellulitis Cellulitis and abscess of foot delivery delivered Chest pain CHF (congestive heart failure) (~06/07/22) CKD (chronic kidney disease) CKD (chronic kidney disease) CKD (chronic kidney disease) stage 4, GFR 15-29 ml/min Depression with anxiety Diabetes Diabetic retinopathy DM foot ulcer Elevated troponin Essential hypertension Fever Generalized edema HFrEF (heart failure with reduced ejection fraction) HTN (hypertension) Hypertension (~06/10/22) Metabolic acidosis Migraine Osteomyelitis PAD (peripheral artery disease) Pleural effusion test positive test positive Sepsis Severe anemia Tachycardia Type 2 diabetes mellitus with hyperglycemia, with long-term current use of insulin Family History Family History Mother Coronary artery disease Myocardial infarction Stroke Diabetes mellitus Father Myocardial infarction Surgical History Surgical History History of transmetatarsal amputation of foot S/P transmetatarsal amputation of foot Social History Social History Household Members: Family Household Members Other:: Sister, [id number], nephew Housing: House Do you presently have visiting nurse or other home services: No Alcohol intake: never Patient Tobacco Use Status: Never used Tobacco Smoked in Last 30 Days: No e-Cigarette/Vaping Use: Never Used Second Hand Smoke Exposure: No Use of substances other than those prescribed or required for medical reasons: No Advance Directives: Yes Advance Directives on File: Yes Advance Directives Date on File: 03/08/20 Nutrition Risks: No Nutritional Risk Patient : No service: No Current occupational status: unemployed and disabled Gender identity: Female Meds Allergies Allergy/AdvReac Type Severity Reaction Status Date / Time morphine [MORPHINE] Allergy Intermediate Itching Verified 08/21/22 01:18 azithromycin [From Zithromax] Allergy Hives Verified 08/21/22 01:18 gabapentin Allergy Facial Verified 08/21/22 01:18 Swelling tramadol Allergy Facial Verified 08/21/22 01:18 Swelling vancomycin Allergy Hives Verified 08/21/22 01:18 Active Medications: Current Medications Acetaminophen (Acetaminophen 325 Mg Tablet) 650 mg PO Q6H PRN PRN Reason: Pain, Mild (Pain Scale 1-3) Aspirin (Aspirin Enteric Coated 81 Mg Tablet.) 81 mg PO DAILY [facility] Last Admin: 08/26/22 09:37 Dose: 81 mg Atorvastatin Calcium (Atorvastatin Calcium 40 Mg Tablet) 40 mg PO BEDTIME [facility] Last Admin: 08/25/22 22:00 Dose: 40 mg Carvedilol (Carvedilol 12.5 Mg Tablet) 25 mg PO BID [facility]; Protocol Last Admin: 08/26/22 09:37 Dose: 25 mg Clopidogrel Bisulfate (Clopidogrel Bisulfate 75 Mg Tablet) 75 mg PO DAILY [facility] Last Admin: 08/26/22 09:38 Dose: 75 mg Dextrose (Dextrose 50 % 25 Gm/50 Ml Syringe) 25 gm IVPUSH Q15M PRN; Protocol PRN Reason: per Hypoglycemia Standing Ord. Docusate Sodium (Docusate Sodium 100 Mg Capsule) 100 mg PO DAILY PRN PRN Reason: Constipation Enoxaparin Sodium (Enoxaparin Sodium 30 Mg/0.3 Ml Syringe) 30 mg SUBCUT Q24H [facility] Famotidine (Famotidine/Pf 20 Mg/2 Ml Vial) 20 mg IVPUSH BID [facility] Last Admin: 08/26/22 09:19 Dose: 20 mg Ferrous Sulfate (Ferrous Sulfate 324 Mg Tablet.Dr) 324 mg PO DAILY [facility] Last Admin: 08/26/22 09:36 Dose: 324 mg Glucose (Glucose Gel 15 Gm Gel..Gram.) 15 gm PO Q15M PRN; Protocol PRN Reason: per Hypoglycemia Standing Ord. Hydralazine HCl (Hydralazine Hcl 25 Mg Tablet) 75 mg PO TID [facility]; Protocol Last Admin: 08/26/22 09:36 Dose: 75 mg Hydromorphone HCl (Hydromorphone Hcl 0.5 Mg/0.5 Ml Syringe) 0.25 mg IVPUSH Q4H PRN; Protocol PRN Reason: Pain, Severe (Pain Scale 7-10) Last Admin: 08/26/22 09:57 Dose: 0.25 mg Insulin Human Lispro (Insulin Lispro 100 Unit/Ml 3 Ml Vial) 0 unit SUBCUT QIDACHS [facility]; Protocol Last Admin: 08/26/22 12:01 Dose: 2 unit Isosorbide Mononitrate (Isosorbide Mononitrate 30 Mg Tab.Er.24h) 15 mg PO DAILY [facility]; Protocol Last Admin: 08/26/22 09:36 Dose: 15 mg Lidocaine (Lidocaine 4 % Patch Adh..Patch) 1 patch TRANSDERMA DAILY [facility]; Protocol Last Admin: 08/26/22 09:57 Dose: 1 patch Losartan Potassium (Losartan Potassium 25 Mg Tablet) 25 mg PO DAILY [facility]; Protocol Last Admin: 08/26/22 09:36 Dose: 25 mg Nifedipine (Nifedipine Er 60 Mg Tab.Er.24) 60 mg PO DAILY [facility]; Protocol Last Admin: 08/26/22 09:36 Dose: 60 mg Omeprazole (Omeprazole 40 Mg Capsule.Dr) 40 mg PO DAILY@0630 [facility] Last Admin: 08/26/22 06:22 Dose: 40 mg Ondansetron HCl (Ondansetron Hcl 4 Mg/2 Ml Vial) 4 mg IVPUSH Q8H PRN PRN Reason: Nausea and Vomiting Last Admin: 08/26/22 09:23 Dose: 4 mg Prednisone (Prednisone 10 Mg Tablet) 10 mg PO DAILY [facility]; Taper Stop: 09/03/22 08:59 Last Admin: 08/26/22 09:37 Dose: 10 mg Sodium Chloride (0.9 % Sodium Chloride Flush 3 Ml Syringe) 3 ml IVFLUSH QSHIFT [facility] Last Admin: 08/26/22 09:29 Dose: 3 ml Torsemide (Torsemide 20 Mg Tablet) 40 mg PO BID [facility]; Protocol Last Admin: 08/26/22 09:36 Dose: 40 mg Home Medications Medication Instructions Recorded Confirmed Last Taken Type docusate sodium 100 mg capsule 100 mg PO DAILY PRN constipation 08/13/22 08/25/22 Unknown History oxycodone 5 mg tablet 5 mg PO Q6H PRN severe pain 08/13/22 08/25/22 Unknown History prednisone 10 mg tablet See Taper PO 1XD 08/13/22 08/25/22 08/24/22 History hydralazine 25 mg tablet 75 mg PO TID 08/25/22 08/25/22 08/24/22 History Physical Exam Vital Signs: Last Vital Signs Temp 98.1 F 08/26/22 11:23 Pulse 98 08/26/22 11:23 Resp 16 08/26/22 11:23 BP 136/67 08/26/22 11:23 Pulse Ox 96 08/26/22 11:23 O2 Del Method Room Air 08/26/22 11:23 BMI result Body Mass Index 36.0 Comfortable Neck is supple Lung: Air entry equal Heart: S1,S2, normal. No rub Abd: Soft. BS + NS : Alert.No asterexis Ext: 1+ edema Results Lab Results 08/26/22 06:44 08/26/22 06:45 Lab results: Chemistry 08/25/22 08/26/22 15:33 06:45 Sodium 138 136 Potassium 5.0 5.2 H Carbon Dioxide 22 20 L BUN 66 H 62 H Creatinine 2.84 H 3.10 H Calcium 7.5 L D 8.0 L D Hematology 08/25/22 08/26/22 14:58 06:44 WBC 8.3 6.6 Hgb 9.2 L 8.6 L Plt Count 211 D 167 Assessment and Plan (1) Hypertensive urgency: Status: Acute (2) End-stage renal disease (ESRD): Status: Acute Plan YOUNG WOMAN WITH LONGSTANDING DIABETES MELLITUS AND UNCONTROLLED HYPERTENSION WITH NEWLY DIAGNOSED ESRD. SHE IS DUE FOR DIALYSIS TODAY. UNCONTROLLED HYPERTENSION IS PRIMARILY DUE TO FLUID OVERLOAD. SHE IS ALSO NONCOMPLIANT WITH HER MEDICATIONS. ANEMIA DUE TO UNDERLYING CHRONIC KIDNEY DISEASE. MILD HYPERKALEMIA IN THE SETTING OF ESRD. RECOMMENDATION WE WILL ARRANGE FOR HEMODIALYSIS TODAY. WE WILL USE LOW-POTASSIUM BATH. WE WILL REMOVE FLUID TOLERATED. BLOOD PRESSURE SHOULD IMPROVE WITH FLUID REMOVAL. WE WILL REASSESS AFTER FLUID REMOVAL. SHE WILL NEED EPOGEN TO CORRECT ANEMIA. I WILL HOLD OFF ON EPOGEN UNTIL BLOOD PRESSURE IS OPTIMIZED. Time Spent With Patient Time: Total time managing care of this patient today ____ minutes. Procedures Date of Service Date of Service: 08/27/22
--- NOTE | 2022-08-26 15:58 | MHC.CM.PN ---
CM ATTEMPTED TO MEET WITH PT WHO REFUSED TO ENGAGE PER EMR, PT LIVES WITH HER SISTER AND HAS A [employer] P[employer]ER SHE IS ALSO SCHEDULED TO ATTEND OP HD 3X/WEEK HOWEVER IT APPEARS SHE IS INCONSISTENT PCP: VANDANA CHATMAN HCP ON FILE OBSERVATION NOTICE VERBALLY REVIEWED AND LEFT AT BEDSIDE DCP: PT WILL RETURN HOME WITH RESUMPTION OF [employer] OPERATOR AND OP HD FAMILY TRANSPORTS
[2022-08-26] MEDS: Enoxaparin Sodium 30 MG/0.3 ML SYRINGE SUBCUT (19:53)
[2022-08-26] MEDS: Atorvastatin Calcium 40 MG TABLET PO (19:53)
--- NOTE | 2022-08-26 20:11 | MHC.PIE ---
p; pt c/o itchiness i; dr higuera notified. new order Benadryl now e; will cont to monitor
[2022-08-27] VITALS (8 sets, daily range): BP systolic 99–133; BP diastolic 56–72; PULSE 65–89; RESP 14–20; TEMP 33.8–36.7; O2SAT 94–98
[2022-08-27] MEDS: HYDROmorphone HCl 0.5 MG/0.5 ML SYRINGE 0.25 MG IVPUSH ×6 (02:42→22:17)
[2022-08-27] MEDS: Insulin Lispro 100 UNIT/ML 3 ML VIAL SUBCUT ×3 (08:01→21:28)
[2022-08-27] MEDS: 0.9 % Sodium Chloride Flush 3 ML SYRINGE IVFLUSH ×3 (08:02→19:45)
[2022-08-27 08:04] LABS: Anion Gap 14 (12-20); Blood Urea Nitrogen 34 mg/dL (9-16); Calcium 8.2 mg/dL (8.4-10.2); Carbon Dioxide 24 mmol/L (22-29); Chloride 101 mmol/L (96-108); Creatinine Clr Calc Pharmacy 36.7; Estimated Glomerular Filt Rate 22; Glucose Random 209 mg/dL (60-115); Potassium 4.2 mmol/L (3.3-5.1); Sodium 135 mmol/L (135-145)
--- NOTE | 2022-08-27 09:36 | HO.PM.IMPN ---
Subjective Subjective Date of Service: 08/27/22 Interval History: seen and evaluated this morning Looks better overall but still complaining of generalized pain and nausea vomiting yesterday, still nauseated BP better controlled after dialysis no other overnight events Review of Systems Review of Systems: Yes all other systems are reviewed and are negative Physical Exam Vital Signs: Vital Signs: Last Vital Signs Temp 98.0 F 08/27/22 07:38 Pulse 87 08/27/22 07:38 Resp 18 08/27/22 07:38 BP 113/56 L 08/27/22 07:38 Pulse Ox 95 08/27/22 07:38 O2 Del Method Room Air 08/27/22 07:38 BMI result Body Mass Index 36.0 Const: Other: Constitutional : Awake, interactive, restless Neck : Normal inspection, Supple Cardiovascular : RRR, elevated? JVP, trace lower extremity edema Respiratory : fair bilateral air entry,? basal fine crackles, wheezes or rhonchi Gastrointestinal:? soft, lax, Normal bowel sounds, Non tender Skin : Warm, Dry. PErmacath place clean with no erthyma Neurological : Alert & oriented x3, No focal deficit Objective Data Active Medications Acetaminophen (Acetaminophen 325 Mg Tablet) 650 mg PO Q6H PRN PRN Reason: Pain, Mild (Pain Scale 1-3) Aspirin (Aspirin Enteric Coated 81 Mg Tablet.) 81 mg PO DAILY [facility] Last Admin: 08/26/22 09:37 Dose: 81 mg Documented By: MARGARET Atorvastatin Calcium (Atorvastatin Calcium 40 Mg Tablet) 40 mg PO BEDTIME [facility] Last Admin: 08/26/22 19:53 Dose: 40 mg Documented By: LAILA Carvedilol (Carvedilol 12.5 Mg Tablet) 25 mg PO BID [facility]; Protocol Last Admin: 08/26/22 19:53 Dose: 25 mg Documented By: LAILA Clopidogrel Bisulfate (Clopidogrel Bisulfate 75 Mg Tablet) 75 mg PO DAILY [facility] Last Admin: 08/26/22 09:38 Dose: 75 mg Documented By: MARGARET Dextrose (Dextrose 50 % 25 Gm/50 Ml Syringe) 25 gm IVPUSH Q15M PRN; Protocol PRN Reason: per Hypoglycemia Standing Ord. Docusate Sodium (Docusate Sodium 100 Mg Capsule) 100 mg PO DAILY PRN PRN Reason: Constipation Enoxaparin Sodium (Enoxaparin Sodium 30 Mg/0.3 Ml Syringe) 30 mg SUBCUT Q24H [facility] Last Admin: 08/26/22 19:53 Dose: 30 mg Documented By: LAILA Famotidine (Famotidine/Pf 20 Mg/2 Ml Vial) 20 mg IVPUSH BID [facility] Last Admin: 08/26/22 19:52 Dose: 20 mg Documented By: LAILA Ferrous Sulfate (Ferrous Sulfate 324 Mg Tablet.Dr) 324 mg PO DAILY [facility] Last Admin: 08/26/22 09:36 Dose: 324 mg Documented By: MARGARET Glucose (Glucose Gel 15 Gm Gel..Gram.) 15 gm PO Q15M PRN; Protocol PRN Reason: per Hypoglycemia Standing Ord. Hydralazine HCl (Hydralazine Hcl 25 Mg Tablet) 75 mg PO TID [facility]; Protocol Last Admin: 08/26/22 19:52 Dose: 75 mg Documented By: LAILA Hydromorphone HCl (Hydromorphone Hcl 0.5 Mg/0.5 Ml Syringe) 0.25 mg IVPUSH Q4H PRN; Protocol PRN Reason: Pain, Severe (Pain Scale 7-10) Last Admin: 08/27/22 06:32 Dose: 0.25 mg Documented By: PATRICIO Insulin Human Lispro (Insulin Lispro 100 Unit/Ml 3 Ml Vial) 0 unit SUBCUT QIDACHS [facility]; Protocol Last Admin: 08/27/22 08:01 Dose: 4 unit Documented By: CORRY Isosorbide Mononitrate (Isosorbide Mononitrate 30 Mg Tab.Er.24h) 15 mg PO DAILY [facility]; Protocol Last Admin: 08/26/22 09:36 Dose: 15 mg Documented By: MARGARET Lidocaine (Lidocaine 4 % Patch Adh..Patch) 1 patch TRANSDERMA DAILY [facility]; Protocol Last Admin: 08/26/22 09:57 Dose: 1 patch Documented By: MARGARET Losartan Potassium (Losartan Potassium 25 Mg Tablet) 25 mg PO DAILY [facility]; Protocol Last Admin: 08/26/22 09:36 Dose: 25 mg Documented By: MARGARET Metoclopramide HCl (Metoclopramide Hcl 5 Mg Tablet) 5 mg PO TIDAC [facility] Nifedipine (Nifedipine Er 60 Mg Tab.Er.24) 60 mg PO DAILY [facility]; Protocol Last Admin: 08/26/22 09:36 Dose: 60 mg Documented By: MARGARET Omeprazole (Omeprazole 40 Mg Capsule.) 40 mg PO DAILY@0630 [facility] Last Admin: 08/27/22 06:27 Dose: Not Given Documented By: PATRICIO Non-Admin Reason: Patient Refused Ondansetron HCl (Ondansetron Hcl 4 Mg/2 Ml Vial) 4 mg IVPUSH Q8H PRN PRN Reason: Nausea and Vomiting Last Admin: 08/26/22 09:23 Dose: 4 mg Documented By: MARGARET Prednisone (Prednisone 10 Mg Tablet) 5 mg PO DAILY [facility]; Taper Stop: 09/03/22 08:59 Last Admin: 08/26/22 09:37 Dose: 10 mg Documented By: MARGARET Sodium Chloride (0.9 % Sodium Chloride Flush 3 Ml Syringe) 3 ml IVFLUSH QSHIFT [facility] Last Admin: 08/27/22 08:02 Dose: 3 ml Documented By: CORRY Torsemide (Torsemide 20 Mg Tablet) 40 mg PO BID [facility]; Protocol Last Admin: 08/26/22 19:52 Dose: 40 mg Documented By: LAILA Labs 08/26/22 06:44 08/27/22 06:22 Labs: Laboratory Results - last 24 hr 08/26/22 08/26/22 08/26/22 11:03 16:48 19:52 Anion Gap Estim Creat Clear Calc Estimated GFR POC Glucose 170 H 141 H 178 H Random Glucose Calcium 08/27/22 08/27/22 06:22 07:37 Anion Gap 14 Estim Creat Clear Calc 36.7 Estimated GFR 22 POC Glucose 225 H Random Glucose 209 H Calcium 8.2 L Assessment and Plan (1) Hypertensive urgency: Status: Acute (2) Intractable nausea and vomiting: Status: Acute (3) Atypical chest pain: Status: Acute Plan 31-year-old female with pertinent history of essential hypertension, congestive heart failure with reduced ejection fraction, insulin-dependent type 2 diabetes mellitus with diabetic retinopathy, mood disorder, PAD status post transmetatarsal amputation of foot, ESRD recently started on HD during recent hospitalizations for NSTEMI and then readmit for hyperglycemia with discharge 08/23 to be observed for intractable nausea/vomiting. #Intractale nausea/vomitng questionable gastritis vs gastroparesis Continue PO PPI famotidine b.i.d, add Carafate Metoclopramide for possibe gastroparesis IV Ondansetron p.r.n. Dilaudid severe pain p.r.n. clear liquid diet, advanced to diabetic/cardiac as tolerated Gastroenterology consult # atypical chest pain troponins flat, EKG without evidence of acute ischemia CXR negative Negative bilateral venous duplex #ESRD on HD Continue HD as scheduled Nephrology consult # insulin-dependent type 2 diabetes Humalog on sliding scale POC glucose advanced a diabetic diet as tolerated # CAD with recent NSTEMI 08/14/22 no anginal chest pain currently. EKG nonischemic, trips flat continue dual antiplatelet therapy, carvedilol, atorvastatin # hypertensive urgency better controlled after HD continue home meds # mood disorder continue home meds # PAD continue aspirin/Plavix #HFrEF no acute exacerbation continue torsemide #Anemia of chronic disease H/H baseline, above transfusion threshold continue ferrous sulfate DVT prophylaxis Lovenox The patient will need overnight hospital stay for treatment of abd pain and nausea pending GI eval. Time Spent With Patient Time: Total time managing care of this patient today ____ minutes. Quality Stroke Does the patient have a stroke diagnosis?: No VTE Prior VTE?: No VTE Risk Level:: Medical - moderate - high VTE Device Contraindication: Treatment Not Indicated VTE Drug Contraindication: N/A - Med Ordered
[2022-08-27] MEDS: Isosorbide Mononitrate 30 MG TAB.ER.24H 15 MG PO (10:11)
[2022-08-27] MEDS: predniSONE 10 MG TABLET 5 MG PO (10:12)
[2022-08-27] MEDS: hydrALAZINE HCl 25 MG TABLET 75 MG PO ×3 (10:12→21:27)
[2022-08-27] MEDS: Ferrous Sulfate 324 MG TABLET.DR PO (10:12)
[2022-08-27] MEDS: Torsemide 20 MG TABLET 40 MG PO ×2 (10:12→21:27)
[2022-08-27] MEDS: Losartan Potassium 25 MG TABLET PO (10:13)
[2022-08-27] MEDS: carvediloL 12.5 MG TABLET 25 MG PO ×2 (10:13→21:26)
[2022-08-27] MEDS: Lidocaine 4 % Patch ADH..PATCH 1 PATCH TRANSDERMA (10:13)
[2022-08-27] MEDS: Aspirin Enteric Coated 81 MG TABLET.DR PO (10:13)
[2022-08-27] MEDS: NIFEdipine ER 60 MG TAB.ER.24 PO (10:13)
[2022-08-27] MEDS: Famotidine/PF 20 MG/2 ML VIAL IVPUSH ×2 (10:13→21:30)
[2022-08-27] MEDS: Clopidogrel Bisulfate 75 MG TABLET PO (10:13)
[2022-08-27] MEDS: Sucralfate 1 GM TABLET PO ×2 (12:12→21:27)
--- NOTE | 2022-08-27 12:39 | PM.PNNEP ---
Subjective Subjective Date of Service: 08/29/22 Interval history: Had dialysis yesterday. Uneventful. Blood pressure is better controlled. Physical Exam Vital Signs: Vital Signs: Last Vital Signs Temp 96.9 F 08/27/22 11:55 Pulse 83 08/27/22 11:55 Resp 18 08/27/22 11:55 BP 128/72 08/27/22 11:55 Pulse Ox 98 08/27/22 11:55 O2 Del Method Room Air 08/27/22 11:55 BMI result Body Mass Index 36.0 Const: Other: Constitutional : Awake, interactive, restless Neck : Normal inspection, Supple Cardiovascular : RRR, elevated? JVP, trace lower extremity edema Respiratory : fair bilateral air entry,? basal fine crackles, wheezes or rhonchi Gastrointestinal:? soft, lax, Normal bowel sounds, Non tender Skin : Warm, Dry. PErmacath place clean with no erthyma Neurological : Alert & oriented x3, No focal deficit Objective Data Labs 08/26/22 06:44 08/27/22 06:22 Labs: Laboratory Results - last 24 hr 08/26/22 08/26/22 08/27/22 16:48 19:52 06:22 Sodium 135 Potassium 4.2 Chloride 101 Carbon Dioxide 24 Anion Gap 14 BUN 34 H Creatinine 2.50 H Estim Creat Clear Calc 36.7 Estimated GFR 22 POC Glucose 141 H 178 H Random Glucose 209 H Calcium 8.2 L 08/27/22 08/27/22 07:37 11:10 Sodium Potassium Chloride Carbon Dioxide Anion Gap BUN Creatinine Estim Creat Clear Calc Estimated GFR POC Glucose 225 H 116 H Random Glucose Calcium Procedures Date of Service Date of Service: 08/29/22 Assessment & Plan Assessment and plan (1) Hypertensive urgency: Status: Acute (2) End-stage renal disease (ESRD): Status: Resolved Plan YOUNG WOMAN WITH LONGSTANDING DIABETES MELLITUS AND UNCONTROLLED HYPERTENSION WITH NEWLY DIAGNOSED ESRD. UNCONTROLLED HYPERTENSION IS PRIMARILY DUE TO FLUID OVERLOAD. SHE IS ALSO NONCOMPLIANT WITH HER MEDICATIONS. ANEMIA DUE TO UNDERLYING CHRONIC KIDNEY DISEASE. MILD HYPERKALEMIA IN THE SETTING OF ESRD. RECOMMENDATION Continue hemodialysis 3 times a week. She says that the 6 a.m. shift was inconvenient. She wants to switch to 2nd shift at 11:00 which has been arranged. USE LOW-POTASSIUM BATH. REMOVE FLUID TOLERATED during dialysis. Resume Epogen for anemia.. Time Spent With Patient Time: Total time managing care of this patient today ____ minutes. Progress Note: Quality Stroke Does the patient have a stroke diagnosis?: No
[2022-08-27] MEDS: Atorvastatin Calcium 40 MG TABLET PO (21:27)
[2022-08-27] MEDS: Enoxaparin Sodium 30 MG/0.3 ML SYRINGE SUBCUT (21:27)
[2022-08-28] MEDS: HYDROmorphone HCl 0.5 MG/0.5 ML SYRINGE 0.25 MG IVPUSH ×5 (02:22→21:39)
[2022-08-28 03:13] VITALS: BP 96/54; PULSE 76; RESP 18; O2SAT 91
[2022-08-28 03:36] VITALS: BP 112/52; O2SAT 94
--- NOTE | 2022-08-28 06:17 | PM.GICN ---
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 Denies lightheadedness, diaphoresis, palpiations, or retrosternal chest pressure. No sputum or hemoptysis. Denies any alcohol use, illicit drug use, or smoking.? She has negative dopplers for DVT, CT A/P iht distended stomach and constipation. Trop elevation but down from recent nstemi 1-2 wks ago. Today when I came to see her she was relaxed and said the nausea had improved and she was not having any chest pain. She had been given reglan, carafate zofran on admission as well as PPI Review of Systems Review of Systems: Constitutional : No Weight loss, No Fever, No Chills ENT/Mouth : No sore throat, No Rhinorrhea Eyes: No Swelling, No Redness Cardiovascular : No Chest Pain, No SOB, No Edema Respiratory : + Cough, No Sputum, No Wheezing Gastrointestinal : see HPI Genitourinary : NO Dysuria, No Urinary Frequency, No Hematuria, No Urgency Musculoskeletal : No joint pain, No Myalgias, No Joint Swelling Skin : No Skin Lesions, No rash Neuro : No Weakness, No Numbness, No Dizziness, No Headache Psych : No Anxiety/Panic, No Depression Heme/Lymph: No Bruising, No Lymphadenopathy Endocrine : No Polyuria, No Polydipsia All other systems reviewed and are negative. [facility] Past Medical History Medical History (Updated 08/28/22 @ 00:03 by Background Daemon) Abnormal finding on echocardiogram Acute dyspnea Acute on chronic systolic and diastolic heart failure, NYHA class 3 Acute worsening of stage 3 chronic kidney disease MYNOR (acute kidney injury) Anemia Anemia in chronic kidney disease (CKD) Asthma Atypical chest pain Back pain Blind right eye Bone infection Cardiomyopathy Cellulitis Cellulitis and abscess of foot delivery delivered Chest pain CHF (congestive heart failure) (~06/07/22) CKD (chronic kidney disease) CKD (chronic kidney disease) CKD (chronic kidney disease) stage 4, GFR 15-29 ml/min Depression with anxiety Diabetes Diabetic retinopathy DM foot ulcer Elevated troponin ESRD needing dialysis Essential hypertension Fever Generalized edema HFrEF (heart failure with reduced ejection fraction) HTN (hypertension) Hypertension (~06/10/22) Metabolic acidosis Migraine Osteomyelitis PAD (peripheral artery disease) Pleural effusion test positive test positive Sepsis Severe anemia Tachycardia Type 2 diabetes mellitus with hyperglycemia, with long-term current use of insulin Family History Family History Mother Coronary artery disease Myocardial infarction Stroke Diabetes mellitus Father Myocardial infarction Surgical History Surgical History History of transmetatarsal amputation of foot S/P transmetatarsal amputation of foot Social History Social History Household Members: Family Household Members Other:: Sister, [id number], nephew Housing: House Do you presently have visiting nurse or other home services: No Alcohol intake: never Patient Tobacco Use Status: Never used Tobacco Smoked in Last 30 Days: No e-Cigarette/Vaping Use: Never Used Second Hand Smoke Exposure: No Use of substances other than those prescribed or required for medical reasons: No Currently Displaying Signs/Symptoms of Drug Intoxication Withdrawal: No Advance Directives: Yes Advance Directives on File: Yes Advance Directives Date on File: 03/08/20 Nutrition Risks: No Nutritional Risk Patient : No service: No Current occupational status: unemployed and disabled Gender identity: Female Meds Allergies Allergy/AdvReac Type Severity Reaction Status Date / Time morphine [MORPHINE] Allergy Intermediate Itching Verified 08/21/22 01:18 azithromycin [From Zithromax] Allergy Hives Verified 08/21/22 01:18 gabapentin Allergy Facial Verified 08/21/22 01:18 Swelling tramadol Allergy Facial Verified 08/21/22 01:18 Swelling vancomycin Allergy Hives Verified 08/21/22 01:18 Active Medications: Current Medications Acetaminophen (Acetaminophen 325 Mg Tablet) 650 mg PO Q6H PRN PRN Reason: Pain, Mild (Pain Scale 1-3) Aspirin (Aspirin Enteric Coated 81 Mg Tablet.) 81 mg PO DAILY [facility] Last Admin: 08/27/22 10:13 Dose: 81 mg Atorvastatin Calcium (Atorvastatin Calcium 40 Mg Tablet) 40 mg PO BEDTIME [facility] Last Admin: 08/27/22 21:27 Dose: 40 mg Carvedilol (Carvedilol 12.5 Mg Tablet) 25 mg PO BID [facility]; Protocol Last Admin: 08/27/22 21:26 Dose: 25 mg Clopidogrel Bisulfate (Clopidogrel Bisulfate 75 Mg Tablet) 75 mg PO DAILY [facility] Last Admin: 08/27/22 10:13 Dose: 75 mg Dextrose (Dextrose 50 % 25 Gm/50 Ml Syringe) 25 gm IVPUSH Q15M PRN; Protocol PRN Reason: per Hypoglycemia Standing Ord. Docusate Sodium (Docusate Sodium 100 Mg Capsule) 100 mg PO DAILY PRN PRN Reason: Constipation Enoxaparin Sodium (Enoxaparin Sodium 30 Mg/0.3 Ml Syringe) 30 mg SUBCUT Q24H [facility] Last Admin: 08/27/22 21:27 Dose: 30 mg Famotidine (Famotidine/Pf 20 Mg/2 Ml Vial) 20 mg IVPUSH BID [facility] Last Admin: 08/27/22 21:30 Dose: 20 mg Ferrous Sulfate (Ferrous Sulfate 324 Mg Tablet.) 324 mg PO DAILY [facility] Last Admin: 08/27/22 10:12 Dose: 324 mg Glucose (Glucose Gel 15 Gm Gel..Gram.) 15 gm PO Q15M PRN; Protocol PRN Reason: per Hypoglycemia Standing Ord. Hydralazine HCl (Hydralazine Hcl 25 Mg Tablet) 75 mg PO TID [facility]; Protocol Last Admin: 08/27/22 21:27 Dose: 75 mg Hydromorphone HCl (Hydromorphone Hcl 0.5 Mg/0.5 Ml Syringe) 0.25 mg IVPUSH Q4H PRN; Protocol PRN Reason: Pain, Severe (Pain Scale 7-10) Last Admin: 08/28/22 02:22 Dose: 0.25 mg Insulin Human Lispro (Insulin Lispro 100 Unit/Ml 3 Ml Vial) 0 unit SUBCUT QIDACHS [facility]; Protocol Last Admin: 08/27/22 21:28 Dose: 8 unit Isosorbide Mononitrate (Isosorbide Mononitrate 30 Mg Tab.Er.24h) 15 mg PO DAILY [facility]; Protocol Last Admin: 08/27/22 10:11 Dose: 15 mg Lidocaine (Lidocaine 4 % Patch Adh..Patch) 1 patch TRANSDERMA DAILY [facility]; Protocol Last Admin: 08/27/22 10:13 Dose: 1 patch Losartan Potassium (Losartan Potassium 25 Mg Tablet) 25 mg PO DAILY [facility]; Protocol Last Admin: 08/27/22 10:13 Dose: 25 mg Metoclopramide HCl (Metoclopramide Hcl 5 Mg Tablet) 5 mg PO TIDAC [facility] Last Admin: 08/27/22 16:37 Dose: Not Given Nifedipine (Nifedipine Er 60 Mg Tab.Er.24) 60 mg PO DAILY [facility]; Protocol Last Admin: 08/27/22 10:13 Dose: 60 mg Omeprazole (Omeprazole 40 Mg Capsule.Dr) 40 mg PO DAILY@0630 [facility] Last Admin: 08/28/22 05:40 Dose: Not Given Ondansetron HCl (Ondansetron Hcl 4 Mg/2 Ml Vial) 4 mg IVPUSH Q8H PRN PRN Reason: Nausea and Vomiting Last Admin: 08/26/22 09:23 Dose: 4 mg Prednisone (Prednisone 10 Mg Tablet) 5 mg PO DAILY [facility]; Taper Stop: 09/03/22 08:59 Last Admin: 08/27/22 10:12 Dose: 5 mg Sodium Chloride (0.9 % Sodium Chloride Flush 3 Ml Syringe) 3 ml IVFLUSH QSHIFT [facility] Last Admin: 08/27/22 19:45 Dose: 3 ml Sucralfate (Sucralfate 1 Gm Tablet) 1 gm PO QIDACHS [facility] Last Admin: 08/27/22 21:27 Dose: 1 gm Torsemide (Torsemide 20 Mg Tablet) 40 mg PO BID [facility]; Protocol Last Admin: 08/27/22 21:27 Dose: 40 mg Home Medications Medication Instructions Recorded Confirmed Last Taken Type docusate sodium 100 mg capsule 100 mg PO DAILY PRN constipation 08/13/22 08/25/22 Unknown History oxycodone 5 mg tablet 5 mg PO Q6H PRN severe pain 08/13/22 08/25/22 Unknown History prednisone 10 mg tablet See Taper PO 1XD 08/13/22 08/25/22 08/24/22 History hydralazine 25 mg tablet 75 mg PO TID 08/25/22 08/25/22 08/24/22 History Physical Exam Vital Signs: Vital Signs: Last Vital Signs Temp 92.8 F L 08/27/22 20:00 Pulse 76 08/28/22 03:13 Resp 18 08/28/22 03:13 BP 112/52 L 08/28/22 03:36 Pulse Ox 94 08/28/22 03:36 O2 Del Method Room Air 08/28/22 03:36 BMI result Body Mass Index 36.0 EXAM: GENERAL: The patient is relaxed VITAL SIGNS:see workflow HEENT: Nonicteric sclerae, PERRLA, EOMI. Oropharynx clear. Moist mucous membranes. Conjunctivae appear well perfused. No thyroid mass. CHEST: Chest wall is nontender. HEART: Regular rate and rhythm without murmurs. LUNGS: Clear to auscultation bilaterally. ABDOMEN: Soft, positive bowel sounds, nontender, no organomegaly.no flank tenderness SKIN: No rash, no excessive bruising, petechiae, or purpura. NEUROLOGIC: Cranial nerves II-XII intact without motor/sensory deficit. extrem: prior transtarsal amputation noted Results Labs 08/26/22 06:44 08/27/22 06:22 Labs: BMP 08/27/22 06:22 Sodium 135 Potassium 4.2 Chloride 101 Carbon Dioxide 24 BUN 34 H Creatinine 2.50 H Calcium 8.2 L ECG Attestation: I personally reviewed and interpreted this ECG as follows: (NSR and right bundle branch block without any ST elevations or depressions) Imaging CT scan - abdomen: Attestation: I personally reviewed and interpreted this imaging study as follows: My impression: distended stomach, constipation Assessment and Plan (1) Intractable nausea and vomiting: Status: Acute Plan 1/ Nausea and vomiting, chest pain, possibly from reflux 2/2 stress illness, gastroparesis, medication e.g aspirin, oxycodone-seems to have improved with medical treatment ddx; mesenteric ischemia, esophageal spasm, central lesion Plan; 1/ cont with low dose reglan 2/ cont with PPI 3/ Upper Gi series to r/o GOO, stomach lesion, mass Time Spent With Patient Time: Total time managing care of this patient today ____ minutes. Procedures Date of Service Date of Service: 08/29/22
[2022-08-28 07:23] VITALS: BP 116/62; PULSE 72; RESP 18; TEMP 36.4; O2SAT 97
[2022-08-28] MEDS: Insulin Lispro 100 UNIT/ML 3 ML VIAL SUBCUT (08:11)
[2022-08-28] MEDS: ondansetron HCL 4 MG/2 ML VIAL IVPUSH (11:52)
[2022-08-28] MEDS: carvediloL 12.5 MG TABLET 25 MG PO ×2 (12:32→21:39)
[2022-08-28] MEDS: Clopidogrel Bisulfate 75 MG TABLET PO (12:32)
[2022-08-28] MEDS: Aspirin Enteric Coated 81 MG TABLET.DR PO (12:32)
[2022-08-28] MEDS: Isosorbide Mononitrate 30 MG TAB.ER.24H 15 MG PO (12:33)
--- NOTE | 2022-08-28 13:26 | PM.DS ---
DS: Providers Provider Date of admission: 08/27/22 09:00 Primary care physician: Abdon Beard MD Consults: 08/25/22 21:48 Consult to Nephrology Routine Consulting Provider: Ovidio Walsh Reason for consultation: esrd on hd 08/27/22 09:41 Consult to Gastroenterology Routine Consulting Provider: Rupinder Tapia Reason for consultation: Epigastric pain and nausea for eval and rec. DS: Diagnosis Discharge Diagnosis (1) Hypertensive urgency: Status: Acute (2) End-stage renal disease (ESRD): Status: Resolved DS: Summary Hospital Course Hospital Course: Admission note HPI Hospital course Continue reglan as needed before meals Carafate for 2 weeks Continue Omeprazole Monitor blood pressure readings at home To do dialysis as scheduled. Time Spent with Patient Time attestation: Total time managing care of this patient today ____ minutes. Physical Exam Vital Signs: Vital Signs: Last Vital Signs Temp 97.6 F 08/28/22 07:23 Pulse 72 08/28/22 07:23 Resp 18 08/28/22 07:23 BP 116/62 08/28/22 07:23 Pulse Ox 97 08/28/22 07:23 O2 Del Method Room Air 08/28/22 07:23 BMI result Body Mass Index 36.0 DS: Data Data Completed and Pending Completed studies during hospitalization [Text1]: Procedures Detachment at Right Foot, Partial 1st Ray, Open Approach (03/01/20) Detachment at Right Foot, Partial 2nd Ray, Open Approach (03/01/20) Detachment at Right Foot, Partial 3rd Ray, Open Approach (03/01/20) Detachment at Right Foot, Partial 4th Ray, Open Approach (03/01/20) Detachment at Right Foot, Partial 5th Ray, Open Approach (03/01/20) Drainage of Right Pleural Cavity, Percutaneous Approach (01/14/21) Fluoroscopy of Superior Vena Cava, Guidance (08/14/22) Insertion of Infusion Device into Right Atrium, Percutaneous Approach (08/14/22) Insertion of Infusion Device into Superior Vena Cava, Percutaneous Approach (01/14/21) Insertion of Tunneled Vascular Access Device into Chest Subcutaneous Tissue and Fascia, Percutaneous Approach (08/14/22) Performance of Urinary Filtration, Intermittent, Less than 6 Hours Per Day (08/14/22) Removal of Infusion Device from Great Vessel, External Approach (01/14/21) Transfusion of Nonautologous Red Blood Cells into Peripheral Vein, Percutaneous Approach (04/22/22) Labs on day of discharge: Laboratory Results - last 24 hr 08/27/22 08/27/22 08/28/22 16:02 19:41 07:51 POC Glucose 310 H 314 H 289 H 08/28/22 11:42 POC Glucose 104 Discharge Plan Discharge Anticipated Discharge Date/Time: 08/28/22 13:16 Discharge Diagnosis: Uncontrolled hypertension Delayed gastric emptying Referrals: Abdon Beard MD [Primary Care Provider] - 1 Week Discharge Medications: New ondansetron HCl 4 mg tablet 4 mg PO Q8H PRN (Reason: nausea and vomiting) 4 Days Qty: 7 0RF sucralfate 1 gram Tablet 1 g PO BID Qty: 28 0RF metoclopramide HCl 5 mg Tablet 5 mg PO TIDAC PRN (Reason: (Drug) Ingestion) Qty: 90 0RF Continued hydralazine 25 mg tablet 75 mg PO TID prednisone 10 mg tablet See Taper PO 1XD Taper: Prednisone 40 mg daily for 7 Days and 0 Hour 30 mg daily for 7 Days and 0 Hour 20 mg daily for 7 Days and 0 Hour 10 mg daily for 7 Days and 0 Hour 5 mg daily for 7 Days Rx Instructions: 08/25 - 08/26 - 10mg; 08/27 - 09/02 - 5mg docusate sodium 100 mg capsule 100 mg PO DAILY PRN (Reason: constipation) oxycodone 5 mg tablet 5 mg PO Q6H PRN (Reason: severe pain) atorvastatin 40 mg Tablet 40 mg PO BEDTIME Qty: 90 0RF clopidogrel 75 mg Tablet 75 mg PO DAILY Qty: 90 0RF aspirin 81 mg Tablet,Delayed Release (Dr/Ec) 81 mg PO DAILY Qty: 90 0RF losartan 25 mg Tablet 25 mg PO DAILY Qty: 90 0RF Protocol: Hold for SBP< HOLD for SBP < : 90 omeprazole 40 mg Capsule,Delayed Release(Dr/Ec) 40 mg PO DAILY@0630 Qty: 90 0RF carvedilol 12.5 mg tablet 12.5 mg PO BID Qty: 120 0RF torsemide 20 mg tablet 40 mg PO BID Qty: 180 0RF nifedipine 60 mg tablet extended release 24hr 60 mg PO DAILY Qty: 90 0RF ferrous fumarate [Ferrocite] 324 mg (106 mg iron) tablet 324 mg PO DAILY Qty: 90 0RF glipizide 2.5 mg tablet extended release 24hr 2.5 mg PO DAILY Qty: 90 0RF Diet: Advance to usual diet Activity on Discharge: As tolerated Stand Alone Forms: Patient Portal Discharge page Care Plan Goals: Read below Health Concerns: Read below Plan of Treatment: Read below Assessment: You were admitted for elevated blood pressure readings and reported nausea and vomiting treated with dialysis, reglan and acidity medications. images were consistent with gastric emptying delay which is a complication of long standing diabetes. Continue reglan as needed before meals Carafate for 2 weeks Continue Omeprazole Monitor blood pressure readings at home To do dialysis as scheduled. Patient Instructions: Musculoskeletal Pain (ED), Chest Wall Pain (ED), Edema (ED)
--- NOTE | 2022-08-28 14:14 | HO.PM.IMPN ---
Subjective Subjective Date of Service: 08/28/22 Interval History: seen and evaluated this morning no nausea and vomioting for last 24 hours Developed vomiting after the GI series study complaining of generalized pain and nausea BP better controlled no other overnight events Review of Systems Review of Systems: Yes all other systems are reviewed and are negative Physical Exam Vital Signs: Vital Signs: Last Vital Signs Temp 97.6 F 08/28/22 07:23 Pulse 72 08/28/22 07:23 Resp 18 08/28/22 07:23 BP 116/62 08/28/22 07:23 Pulse Ox 97 08/28/22 07:23 O2 Del Method Room Air 08/28/22 07:23 BMI result Body Mass Index 36.0 Const: Other: Constitutional : Awake, interactive, restless Neck : Normal inspection, Supple Eyes: Legally blind Cardiovascular : RRR, elevated? JVP, trace lower extremity edema Respiratory : fair bilateral air entry,? basal fine crackles, wheezes or rhonchi Gastrointestinal:? soft, lax, Normal bowel sounds, Non tender Skin : Warm, Dry. PErmacath place clean with no erthyma Neurological : Alert & oriented x3, No focal deficit Objective Data Active Medications Acetaminophen (Acetaminophen 325 Mg Tablet) 650 mg PO Q6H PRN PRN Reason: Pain, Mild (Pain Scale 1-3) Aspirin (Aspirin Enteric Coated 81 Mg Tablet.) 81 mg PO DAILY [facility] Last Admin: 08/28/22 12:32 Dose: 81 mg Documented By: KERRIE Atorvastatin Calcium (Atorvastatin Calcium 40 Mg Tablet) 40 mg PO BEDTIME [facility] Last Admin: 08/27/22 21:27 Dose: 40 mg Documented By: CARROLL Carvedilol (Carvedilol 12.5 Mg Tablet) 25 mg PO BID [facility]; Protocol Last Admin: 08/28/22 12:32 Dose: 25 mg Documented By: KERRIE Clopidogrel Bisulfate (Clopidogrel Bisulfate 75 Mg Tablet) 75 mg PO DAILY [facility] Last Admin: 08/28/22 12:32 Dose: 75 mg Documented By: KERRIE Dextrose (Dextrose 50 % 25 Gm/50 Ml Syringe) 25 gm IVPUSH Q15M PRN; Protocol PRN Reason: per Hypoglycemia Standing Ord. Docusate Sodium (Docusate Sodium 100 Mg Capsule) 100 mg PO DAILY PRN PRN Reason: Constipation Enoxaparin Sodium (Enoxaparin Sodium 30 Mg/0.3 Ml Syringe) 30 mg SUBCUT Q24H [facility] Last Admin: 08/27/22 21:27 Dose: 30 mg Documented By: CARROLL Famotidine (Famotidine/Pf 20 Mg/2 Ml Vial) 20 mg IVPUSH BID [facility] Last Admin: 08/28/22 10:10 Dose: Not Given Documented By: KERRIE Non-Admin Reason: Patient Refused Ferrous Sulfate (Ferrous Sulfate 324 Mg Tablet.Dr) 324 mg PO DAILY [facility] Last Admin: 08/28/22 10:11 Dose: Not Given Documented By: KERRIE Non-Admin Reason: Patient Refused Glucose (Glucose Gel 15 Gm Gel..Gram.) 15 gm PO Q15M PRN; Protocol PRN Reason: per Hypoglycemia Standing Ord. Hydralazine HCl (Hydralazine Hcl 25 Mg Tablet) 75 mg PO TID [facility]; Protocol Last Admin: 08/28/22 10:11 Dose: Not Given Documented By: KERRIE Non-Admin Reason: Patient Refused Hydromorphone HCl (Hydromorphone Hcl 0.5 Mg/0.5 Ml Syringe) 0.25 mg IVPUSH Q4H PRN; Protocol PRN Reason: Pain, Severe (Pain Scale 7-10) Last Admin: 08/28/22 11:52 Dose: 0.25 mg Documented By: KERRIE Insulin Human Lispro (Insulin Lispro 100 Unit/Ml 3 Ml Vial) 0 unit SUBCUT QIDACHS [facility]; Protocol Last Admin: 08/28/22 11:59 Dose: Not Given Documented By: KERRIE Non-Admin Reason: No Insulin Coverage Isosorbide Mononitrate (Isosorbide Mononitrate 30 Mg Tab.Er.24h) 15 mg PO DAILY [facility]; Protocol Last Admin: 08/28/22 12:33 Dose: 15 mg Documented By: KERRIE Lidocaine (Lidocaine 4 % Patch Adh..Patch) 1 patch TRANSDERMA DAILY [facility]; Protocol Last Admin: 08/28/22 10:11 Dose: Not Given Documented By: KERRIE Non-Admin Reason: Patient Refused Losartan Potassium (Losartan Potassium 25 Mg Tablet) 25 mg PO DAILY [facility]; Protocol Last Admin: 08/28/22 10:12 Dose: Not Given Documented By: KERRIE Non-Admin Reason: Patient Refused Metoclopramide HCl (Metoclopramide Hcl 5 Mg Tablet) 5 mg PO TIDAC [facility] Last Admin: 08/28/22 12:38 Dose: Not Given Documented By: KERRIE Non-Admin Reason: Patient Refused Nifedipine (Nifedipine Er 60 Mg Tab.Er.24) 60 mg PO DAILY [facility]; Protocol Last Admin: 08/28/22 10:12 Dose: Not Given Documented By: KERRIE Non-Admin Reason: Patient Refused Omeprazole (Omeprazole 40 Mg Capsule.Dr) 40 mg PO DAILY@0630 [facility] Last Admin: 08/28/22 05:40 Dose: Not Given Documented By: CARROLL Non-Admin Reason: NPO Ondansetron HCl (Ondansetron Hcl 4 Mg/2 Ml Vial) 4 mg IVPUSH Q8H PRN PRN Reason: Nausea and Vomiting Last Admin: 08/28/22 11:52 Dose: 4 mg Documented By: KERRIE Prednisone (Prednisone 10 Mg Tablet) 5 mg PO DAILY [facility]; Taper Stop: 09/03/22 08:59 Last Admin: 08/28/22 10:12 Dose: Not Given Documented By: KERRIE Non-Admin Reason: Patient Refused Sodium Chloride (0.9 % Sodium Chloride Flush 3 Ml Syringe) 3 ml IVFLUSH QSHIFT [facility] Last Admin: 08/28/22 09:30 Dose: Not Given Documented By: KERRIE Non-Admin Reason: Patient Refused Sucralfate (Sucralfate 1 Gm Tablet) 1 gm PO QIDACHS [facility] Last Admin: 08/28/22 12:38 Dose: Not Given Documented By: KERRIE Non-Admin Reason: Patient Refused Torsemide (Torsemide 20 Mg Tablet) 40 mg PO BID [facility]; Protocol Last Admin: 08/28/22 10:12 Dose: Not Given Documented By: KERRIE Non-Admin Reason: Patient Refused Labs 08/26/22 06:44 08/27/22 06:22 Labs: Laboratory Results - last 24 hr 08/27/22 08/27/22 08/28/22 16:02 19:41 07:51 POC Glucose 310 H 314 H 289 H 08/28/22 11:42 POC Glucose 104 Assessment and Plan (1) Hypertensive urgency: Status: Acute (2) Intractable nausea and vomiting: Status: Acute Plan 31-year-old female with pertinent history of essential hypertension, congestive heart failure with reduced ejection fraction, insulin-dependent type 2 diabetes mellitus with diabetic retinopathy, mood disorder, PAD status post transmetatarsal amputation of foot, ESRD recently started on HD during recent hospitalizations for NSTEMI and then readmit for hyperglycemia with discharge 08/23 to be observed for intractable nausea/vomiting. #Intractale nausea/vomitng Seems to be 2/2 combination of gastric ulcers\gastritis and gastroparesis Continue PO PPI famotidine b.i.d, add Carafate Metoclopramide for gastroparesis IV Ondansetron p.r.n. Dilaudid severe pain p.r.n. advanced to diabetic/cardiac as tolerated Gastroenterology consult, do GI series study GI series study showing likely stomach ulcer and delayed stomach emptying # atypical chest pain troponins flat, EKG without evidence of acute ischemia CXR negative Imdur 15 mg daily added Negative bilateral venous duplex #ESRD on HD Continue HD as scheduled TTS Nephrology consult # insulin-dependent type 2 diabetes Humalog on sliding scale POC glucose advanced a diabetic diet as tolerated # CAD with recent NSTEMI 08/14/22 no anginal chest pain currently. EKG nonischemic, trips flat continue dual antiplatelet therapy, carvedilol, atorvastatin # hypertensive urgency better controlled after HD continue home meds # mood disorder continue home meds # PAD continue aspirin/Plavix #HFrEF no acute exacerbation continue torsemide #Anemia of chronic disease H/H baseline, above transfusion threshold continue ferrous sulfate DVT prophylaxis Lovenox The patient will need overnight hospital stay for treatment of abd pain and nausea pending clinical improvement Time Spent With Patient Time: Total time managing care of this patient today ____ minutes. Quality Stroke Does the patient have a stroke diagnosis?: No VTE Prior VTE?: No VTE Risk Level:: Medical - moderate - high VTE Device Contraindication: Treatment Not Indicated VTE Drug Contraindication: N/A - Med Ordered
[2022-08-28 15:01] VITALS: BP 135/75; PULSE 88; RESP 18; TEMP 36.9; O2SAT 98
[2022-08-28] MEDS: hydrALAZINE HCl 25 MG TABLET 75 MG PO ×2 (16:43→21:42)
[2022-08-28] MEDS: Sucralfate 1 GM TABLET PO ×2 (16:44→21:43)
[2022-08-28] MEDS: 0.9 % Sodium Chloride Flush 3 ML SYRINGE IVFLUSH ×2 (17:07→21:39)
--- NOTE | 2022-08-28 17:30 | PM.PNNEP ---
Subjective Subjective Date of Service: 08/28/22 Interval history: seen and evaluated this morning Sleepy and not giving good history complaining of generalized pain and nausea Physical Exam Vital Signs: Vital Signs: Last Vital Signs Temp 98.4 F 08/28/22 15:01 Pulse 88 08/28/22 15:01 Resp 18 08/28/22 15:01 BP 135/75 08/28/22 15:01 Pulse Ox 98 08/28/22 15:01 O2 Del Method Room Air 08/28/22 15:01 BMI result Body Mass Index 36.0 Const: Other: Constitutional : Awake, interactive, restless Neck : Normal inspection, Supple Eyes: Legally blind Cardiovascular : RRR, elevated? JVP, trace lower extremity edema Respiratory : fair bilateral air entry,? basal fine crackles, wheezes or rhonchi Gastrointestinal:? soft, lax, Normal bowel sounds, Non tender Skin : Warm, Dry. PErmacath place clean with no erthyma Neurological : Alert & oriented x3, No focal deficit Objective Data Labs 08/26/22 06:44 08/27/22 06:22 Labs: Laboratory Results - last 24 hr 08/27/22 08/28/22 08/28/22 19:41 07:51 11:42 POC Glucose 314 H 289 H 104 08/28/22 16:10 POC Glucose 117 H Procedures Date of Service Date of Service: 08/28/22 Assessment & Plan Assessment and plan (1) End-stage renal disease (ESRD): Status: Resolved Plan 1. YOUNG WOMAN WITH LONGSTANDING DIABETES MELLITUS AND UNCONTROLLED HYPERTENSION WITH NEWLY DIAGNOSED ESRD. 2. UNCONTROLLED HYPERTENSION IS PRIMARILY DUE TO FLUID OVERLOAD. SHE IS ALSO NONCOMPLIANT WITH HER MEDICATIONS. 3. ANEMIA DUE TO UNDERLYING CHRONIC KIDNEY DISEASE. MILD HYPERKALEMIA IN THE SETTING OF ESRD. RECOMMENDATION Continue hemodialysis 3 times a week. Next HD in AM USE LOW-POTASSIUM BATH. REMOVE FLUID TOLERATED during dialysis. Epogen for anemia Pain management .. Time Spent With Patient Time: Total time managing care of this patient today ____ minutes. Progress Note: Quality Stroke Does the patient have a stroke diagnosis?: No
[2022-08-28 20:00] VITALS: BP 139/81; PULSE 97; RESP 19; TEMP 36.7; O2SAT 93
[2022-08-28] MEDS: Enoxaparin Sodium 30 MG/0.3 ML SYRINGE SUBCUT (21:39)
[2022-08-28] MEDS: Famotidine/PF 20 MG/2 ML VIAL IVPUSH (21:40)
[2022-08-28] MEDS: Torsemide 20 MG TABLET 40 MG PO (21:43)
[2022-08-28] MEDS: Atorvastatin Calcium 40 MG TABLET PO (21:43)
[2022-08-29] MEDS: HYDROmorphone HCl 0.5 MG/0.5 ML SYRINGE 0.25 MG IVPUSH ×6 (01:54→22:01)
[2022-08-29] MEDS: Omeprazole 40 MG CAPSULE.DR PO (05:40)
[2022-08-29 07:17] VITALS: BP 172/86; PULSE 96; RESP 18; TEMP 36.1; O2SAT 92
[2022-08-29] MEDS: hydrALAZINE HCl 25 MG TABLET 75 MG PO ×3 (08:49→21:01)
[2022-08-29] MEDS: carvediloL 12.5 MG TABLET 25 MG PO ×2 (08:49→21:00)
[2022-08-29] MEDS: Lidocaine 4 % Patch ADH..PATCH 1 PATCH TRANSDERMA (08:49)
[2022-08-29] MEDS: Torsemide 20 MG TABLET 40 MG PO ×2 (08:50→20:59)
[2022-08-29] MEDS: Losartan Potassium 25 MG TABLET PO (08:50)
[2022-08-29] MEDS: Clopidogrel Bisulfate 75 MG TABLET PO (08:50)
[2022-08-29] MEDS: Isosorbide Mononitrate 30 MG TAB.ER.24H 15 MG PO (08:50)
[2022-08-29] MEDS: Ferrous Sulfate 324 MG TABLET.DR PO (08:50)
[2022-08-29] MEDS: NIFEdipine ER 60 MG TAB.ER.24 PO (08:50)
[2022-08-29] MEDS: Aspirin Enteric Coated 81 MG TABLET.DR PO (08:50)
[2022-08-29] MEDS: predniSONE 10 MG TABLET 5 MG PO (08:51)
[2022-08-29] MEDS: Famotidine/PF 20 MG/2 ML VIAL IVPUSH ×2 (08:52→21:00)
[2022-08-29] MEDS: 0.9 % Sodium Chloride Flush 3 ML SYRINGE IVFLUSH ×3 (08:55→22:02)
--- NOTE | 2022-08-29 11:15 | HO.PM.IMPN ---
Subjective Subjective Date of Service: 08/29/22 Interval History: c/o epigastric pain, drinking liquids but not eating due to N/V Review of Systems Review of Systems: Yes all other systems are reviewed and are negative Physical Exam Vital Signs: Vital Signs: Last Vital Signs Temp 97 F 08/29/22 07:17 Pulse 96 08/29/22 07:17 Resp 18 08/29/22 07:17 BP 172/86 H 08/29/22 07:17 Pulse Ox 92 08/29/22 07:17 O2 Del Method Room Air 08/29/22 07:17 BMI result Body Mass Index 36.0 Gen: in no acute distress HEENT: sclera anicteric, moist mucus membranes Neck: supple Lungs: clear to auscultation bilaterally Heart: regular rate and rhythm, no murmurs Abd: soft, epigastric tenderness Ext: trace leg edema bilaterally Skin: warm/well-perfused Neuro: alert and oriented x3, no focal findings Psych: appropriate affect Objective Data Active Medications Acetaminophen (Acetaminophen 325 Mg Tablet) 650 mg PO Q6H PRN PRN Reason: Pain, Mild (Pain Scale 1-3) Aspirin (Aspirin Enteric Coated 81 Mg Tablet.) 81 mg PO DAILY [facility] Last Admin: 08/29/22 08:50 Dose: 81 mg Documented By: RONAL Atorvastatin Calcium (Atorvastatin Calcium 40 Mg Tablet) 40 mg PO BEDTIME [facility] Last Admin: 08/28/22 21:43 Dose: 40 mg Documented By: ROZINA Carvedilol (Carvedilol 12.5 Mg Tablet) 25 mg PO BID [facility]; Protocol Last Admin: 08/29/22 08:49 Dose: 25 mg Documented By: RONAL Clopidogrel Bisulfate (Clopidogrel Bisulfate 75 Mg Tablet) 75 mg PO DAILY [facility] Last Admin: 08/29/22 08:50 Dose: 75 mg Documented By: RONAL Dextrose (Dextrose 50 % 25 Gm/50 Ml Syringe) 25 gm IVPUSH Q15M PRN; Protocol PRN Reason: per Hypoglycemia Standing Ord. Docusate Sodium (Docusate Sodium 100 Mg Capsule) 100 mg PO DAILY PRN PRN Reason: Constipation Enoxaparin Sodium (Enoxaparin Sodium 30 Mg/0.3 Ml Syringe) 30 mg SUBCUT Q24H [facility] Last Admin: 08/28/22 21:39 Dose: 30 mg Documented By: ROZINA Famotidine (Famotidine/Pf 20 Mg/2 Ml Vial) 20 mg IVPUSH BID [facility] Last Admin: 08/29/22 08:52 Dose: 20 mg Documented By: RONAL Ferrous Sulfate (Ferrous Sulfate 324 Mg Tablet.Dr) 324 mg PO DAILY [facility] Last Admin: 08/29/22 08:50 Dose: 324 mg Documented By: RONAL Glucose (Glucose Gel 15 Gm Gel..Gram.) 15 gm PO Q15M PRN; Protocol PRN Reason: per Hypoglycemia Standing Ord. Hydralazine HCl (Hydralazine Hcl 25 Mg Tablet) 75 mg PO TID [facility]; Protocol Last Admin: 08/29/22 08:49 Dose: 75 mg Documented By: RONAL Hydromorphone HCl (Hydromorphone Hcl 0.5 Mg/0.5 Ml Syringe) 0.25 mg IVPUSH Q4H PRN; Protocol PRN Reason: Pain, Severe (Pain Scale 7-10) Last Admin: 08/29/22 09:47 Dose: 0.25 mg Documented By: RONAL Insulin Human Lispro (Insulin Lispro 100 Unit/Ml 3 Ml Vial) 0 unit SUBCUT QIDACHS [facility]; Protocol Last Admin: 08/29/22 07:35 Dose: Not Given Documented By: RONAL Non-Admin Reason: No Insulin Coverage Isosorbide Mononitrate (Isosorbide Mononitrate 30 Mg Tab.Er.24h) 15 mg PO DAILY [facility]; Protocol Last Admin: 08/29/22 08:50 Dose: 15 mg Documented By: RONAL Lidocaine (Lidocaine 4 % Patch Adh..Patch) 1 patch TRANSDERMA DAILY [facility]; Protocol Last Admin: 08/29/22 08:49 Dose: 1 patch Documented By: RONAL Losartan Potassium (Losartan Potassium 25 Mg Tablet) 25 mg PO DAILY [facility]; Protocol Last Admin: 08/29/22 08:50 Dose: 25 mg Documented By: RONAL Metoclopramide HCl (Metoclopramide Hcl 5 Mg Tablet) 5 mg PO TIDAC [facility] Last Admin: 08/29/22 08:50 Dose: 5 mg Documented By: RONAL Nifedipine (Nifedipine Er 60 Mg Tab.Er.24) 60 mg PO DAILY [facility]; Protocol Last Admin: 08/29/22 08:50 Dose: 60 mg Documented By: RONAL Omeprazole (Omeprazole 40 Mg Capsule.Dr) 40 mg PO DAILY@0630 [facility] Last Admin: 08/29/22 05:40 Dose: 40 mg Documented By: ROZINA Ondansetron HCl (Ondansetron Hcl 4 Mg/2 Ml Vial) 4 mg IVPUSH Q8H PRN PRN Reason: Nausea and Vomiting Last Admin: 08/28/22 11:52 Dose: 4 mg Documented By: KERRIE Prednisone (Prednisone 10 Mg Tablet) 5 mg PO DAILY [facility]; Taper Stop: 09/03/22 08:59 Last Admin: 08/29/22 08:51 Dose: 5 mg Documented By: RONAL Sodium Chloride (0.9 % Sodium Chloride Flush 3 Ml Syringe) 3 ml IVFLUSH QSHIFT [facility] Last Admin: 08/29/22 08:55 Dose: 3 ml Documented By: RONAL Sucralfate (Sucralfate 1 Gm Tablet) 1 gm PO QIDACHS [facility] Last Admin: 08/29/22 08:55 Dose: Not Given Documented By: RONAL Non-Admin Reason: Patient Refused Torsemide (Torsemide 20 Mg Tablet) 40 mg PO BID [facility]; Protocol Last Admin: 08/29/22 08:50 Dose: 40 mg Documented By: RONAL Labs 08/26/22 06:44 08/27/22 06:22 Labs: Laboratory Results - last 24 hr 08/28/22 08/28/22 08/29/22 11:42 16:10 07:16 POC Glucose 104 117 H 120 H Assessment and Plan (1) Hypertensive urgency: Status: Acute (2) Intractable nausea and vomiting: Status: Acute Plan d#3 31yo F with HTN, chronic HFrEF, DM2 with retinopathy, mood disorder, PAD s/p TMTA, ERSD recently started on HD during recent hospitalization for NSTEMI, recent hospitalization for hyperglycemia, admitted for intractable N/V # N/V - seems to be due to gastric ulcers + gastroparesis per upper GI series - continue PPI + sucralfate - continue gastroparesis - EGD tomorrow, NPO after midnight # atypical chest pain, resolved - troponins flat, EKG without evidence of acute ischemia - CXR negative - Imdur 15 mg daily added - negative bilateral venous duplex #ESRD on HD - continue HD as scheduled TTS; Nephrology consulted # insulin-dependent type 2 diabetes - muna-dose lispro # CAD with recent NSTEMI 08/14/22 - no anginal chest pain currently. EKG nonischemic, troponin flat continue dual antiplatelet therapy, carvedilol, atorvastatin # hypertensive urgency - better controlled after HD - continue home meds: carvedilol, hyralazine, losartan, Imdur, nifedipine, torsemide # mood disorder - continue home meds # PAD - continue DAPT # chronic HFrEF - no acute exacerbation - continue torsemide + antihypertensives # anemia of ESRD - continue Fe, monitor H+H # VTE ppx: UFH # dispo: eventual home In my clinical judgment, the patient requires continued inpatient hospitalization for the following reasons: inpt EGD eval Time Spent With Patient Time: Total time managing care of this patient today ___40_ minutes. Quality Stroke Does the patient have a stroke diagnosis?: No VTE Prior VTE?: No VTE Risk Level:: Medical - moderate - high VTE Device Contraindication: Treatment Not Indicated VTE Drug Contraindication: N/A - Med Ordered
[2022-08-29] MEDS: Insulin Lispro 100 UNIT/ML 3 ML VIAL SUBCUT ×3 (11:33→20:59)
[2022-08-29] MEDS: Heparin Sodium,Porcine 5,000 UNIT/ML VIAL 5000 UNIT SUBCUT ×2 (11:33→22:00)
--- NOTE | 2022-08-29 14:32 | PM.PNNEP ---
Subjective Subjective Date of Service: 08/29/22 Interval history: Seen during dialysis. Resting comfortably. Physical Exam Vital Signs: Vital Signs: Last Vital Signs Temp 97 F 08/29/22 07:17 Pulse 96 08/29/22 07:17 Resp 18 08/29/22 07:17 BP 172/86 H 08/29/22 07:17 Pulse Ox 92 08/29/22 07:17 O2 Del Method Room Air 08/29/22 07:17 BMI result Body Mass Index 36.0 Comfortable Neck is supple Lung: Air entry equal Heart: S1,S2, normal. No rub Abd: Soft. BS + NS : Alert.No asterexis Ext: 1+ edema Const: Other: Constitutional : Awake, interactive, restless Neck : Normal inspection, Supple Cardiovascular : RRR, elevated? JVP, trace lower extremity edema Respiratory : fair bilateral air entry,? basal fine crackles, wheezes or rhonchi Gastrointestinal:? soft, lax, Normal bowel sounds, Non tender Skin : Warm, Dry. PErmacath place clean with no erthyma Neurological : Alert & oriented x3, No focal deficit Objective Data Labs 08/26/22 06:44 08/27/22 06:22 Labs: Laboratory Results - last 24 hr 08/28/22 08/29/22 08/29/22 16:10 07:16 11:16 POC Glucose 117 H 120 H 167 H Procedures Date of Service Date of Service: 08/29/22 Assessment & Plan Assessment and plan (1) Hypertensive urgency: Status: Acute (2) End-stage renal disease (ESRD): Status: Resolved Plan YOUNG WOMAN WITH LONGSTANDING DIABETES MELLITUS AND UNCONTROLLED HYPERTENSION WITH NEWLY DIAGNOSED ESRD. UNCONTROLLED HYPERTENSION IS PRIMARILY DUE TO FLUID OVERLOAD. SHE IS ALSO NONCOMPLIANT WITH HER MEDICATIONS. ANEMIA DUE TO UNDERLYING CHRONIC KIDNEY DISEASE. MILD HYPERKALEMIA IN THE SETTING OF ESRD. RECOMMENDATION Continue hemodialysis 3 times a week. She wants to switch to 2nd shift at 11:00 which has been arranged. USE LOW-POTASSIUM BATH. REMOVE FLUID TOLERATED during dialysis. Resume Epogen for anemia.. Time Spent With Patient Time: Total time managing care of this patient today ____ minutes. Progress Note: Quality Stroke Does the patient have a stroke diagnosis?: No
[2022-08-29 16:00] VITALS: BP 129/64; PULSE 88; RESP 17; TEMP 37.1; O2SAT 96
[2022-08-29 19:45] VITALS: BP 124/65; PULSE 81; RESP 18; TEMP 37.2; O2SAT 96
[2022-08-29] MEDS: Atorvastatin Calcium 40 MG TABLET PO (21:00)
[2022-08-30] MEDS: HYDROmorphone HCl 0.5 MG/0.5 ML SYRINGE 0.25 MG IVPUSH ×6 (02:15→22:35)
[2022-08-30 04:00] VITALS: BP 94/51; PULSE 77; RESP 16; TEMP 36.4; O2SAT 96
[2022-08-30] MEDS: Omeprazole 40 MG CAPSULE.DR PO (06:03)
[2022-08-30 07:13] VITALS: BP 138/76; PULSE 82; RESP 18; TEMP 36.1; O2SAT 97
[2022-08-30] MEDS: Famotidine/PF 20 MG/2 ML VIAL IVPUSH ×2 (09:00→22:35)
[2022-08-30] MEDS: Lidocaine 4 % Patch ADH..PATCH 1 PATCH TRANSDERMA (09:00)
--- NOTE | 2022-08-30 09:23 | HO.PM.IMPN ---
Subjective Subjective Date of Service: 08/30/22 Interval History: Denies abd pain/N/V NPO for EGD but refusing; to discuss w/GI Review of Systems Review of Systems: Yes all other systems are reviewed and are negative Physical Exam Vital Signs: Vital Signs: Last Vital Signs Temp 97 F 08/30/22 07:13 Pulse 82 08/30/22 07:13 Resp 18 08/30/22 07:13 BP 138/76 08/30/22 07:13 Pulse Ox 97 08/30/22 07:13 O2 Del Method Room Air 08/30/22 07:13 BMI result Body Mass Index 36.0 Gen: in no acute distress HEENT: sclera anicteric, moist mucus membranes, blind Neck: supple Lungs: clear to auscultation bilaterally Heart: regular rate and rhythm, no murmurs Abd: soft, nontender Ext: trace leg edema bilaterally Skin: warm/well-perfused Neuro: alert and oriented x3, no focal findings Psych: appropriate affect Objective Data Active Medications Acetaminophen (Acetaminophen 325 Mg Tablet) 650 mg PO Q6H PRN PRN Reason: Pain, Mild (Pain Scale 1-3) Aspirin (Aspirin Enteric Coated 81 Mg Tablet.) 81 mg PO DAILY [facility] Last Admin: 08/29/22 08:50 Dose: 81 mg Documented By: RONAL Atorvastatin Calcium (Atorvastatin Calcium 40 Mg Tablet) 40 mg PO BEDTIME [facility] Last Admin: 08/29/22 21:00 Dose: 40 mg Documented By: COLTON Carvedilol (Carvedilol 12.5 Mg Tablet) 25 mg PO BID [facility]; Protocol Last Admin: 08/29/22 21:00 Dose: 25 mg Documented By: COLTON Clopidogrel Bisulfate (Clopidogrel Bisulfate 75 Mg Tablet) 75 mg PO DAILY [facility] Last Admin: 08/29/22 08:50 Dose: 75 mg Documented By: RONAL Dextrose (Dextrose 50 % 25 Gm/50 Ml Syringe) 25 gm IVPUSH Q15M PRN; Protocol PRN Reason: per Hypoglycemia Standing Ord. Docusate Sodium (Docusate Sodium 100 Mg Capsule) 100 mg PO DAILY PRN PRN Reason: Constipation Famotidine (Famotidine/Pf 20 Mg/2 Ml Vial) 20 mg IVPUSH BID [facility] Last Admin: 08/30/22 09:00 Dose: 20 mg Documented By: HAIM Ferrous Sulfate (Ferrous Sulfate 324 Mg Tablet.Dr) 324 mg PO DAILY [facility] Last Admin: 08/29/22 08:50 Dose: 324 mg Documented By: RONAL Glucose (Glucose Gel 15 Gm Gel..Gram.) 15 gm PO Q15M PRN; Protocol PRN Reason: per Hypoglycemia Standing Ord. Heparin Sodium (Porcine) (Heparin Sodium,Porcine 5,000 Unit/Ml Vial) 5,000 unit SUBCUT Q12H [facility] Last Admin: 08/29/22 22:00 Dose: 5,000 unit Documented By: COLTON Hydralazine HCl (Hydralazine Hcl 25 Mg Tablet) 75 mg PO TID [facility]; Protocol Last Admin: 08/29/22 21:01 Dose: 75 mg Documented By: COLTON Hydromorphone HCl (Hydromorphone Hcl 0.5 Mg/0.5 Ml Syringe) 0.25 mg IVPUSH Q4H PRN; Protocol PRN Reason: Pain, Severe (Pain Scale 7-10) Last Admin: 08/30/22 06:03 Dose: 0.25 mg Documented By: COLTON Insulin Human Lispro (Insulin Lispro 100 Unit/Ml 3 Ml Vial) 0 unit SUBCUT QIDACHS [facility]; Protocol Last Admin: 08/30/22 09:17 Dose: Not Given Documented By: HAIM Non-Admin Reason: NPO Isosorbide Mononitrate (Isosorbide Mononitrate 30 Mg Tab.Er.24h) 15 mg PO DAILY [facility]; Protocol Last Admin: 08/29/22 08:50 Dose: 15 mg Documented By: RONAL Lidocaine (Lidocaine 4 % Patch Adh..Patch) 1 patch TRANSDERMA DAILY [facility]; Protocol Last Admin: 08/30/22 09:00 Dose: 1 patch Documented By: HAIM Losartan Potassium (Losartan Potassium 25 Mg Tablet) 25 mg PO DAILY [facility]; Protocol Last Admin: 08/29/22 08:50 Dose: 25 mg Documented By: RONAL Metoclopramide HCl (Metoclopramide Hcl 5 Mg Tablet) 5 mg PO TIDAC [facility] Last Admin: 08/30/22 09:18 Dose: Not Given Documented By: HAIM Non-Admin Reason: Patient Refused Nifedipine (Nifedipine Er 60 Mg Tab.Er.24) 60 mg PO DAILY [facility]; Protocol Last Admin: 08/29/22 08:50 Dose: 60 mg Documented By: RONAL Omeprazole (Omeprazole 40 Mg Capsule.) 40 mg PO DAILY@0630 [facility] Last Admin: 08/30/22 06:03 Dose: 40 mg Documented By: COLTON Ondansetron HCl (Ondansetron Hcl 4 Mg/2 Ml Vial) 4 mg IVPUSH Q8H PRN PRN Reason: Nausea and Vomiting Last Admin: 08/28/22 11:52 Dose: 4 mg Documented By: KERRIE Prednisone (Prednisone 10 Mg Tablet) 5 mg PO DAILY [facility]; Taper Stop: 09/03/22 08:59 Last Admin: 08/29/22 08:51 Dose: 5 mg Documented By: RONAL Sodium Chloride (0.9 % Sodium Chloride Flush 3 Ml Syringe) 3 ml IVFLUSH QSHIFT [facility] Last Admin: 08/29/22 22:02 Dose: 3 ml Documented By: COLTON Sucralfate (Sucralfate 1 Gm Tablet) 1 gm PO QIDACHS [facility] Last Admin: 08/30/22 09:17 Dose: Not Given Documented By: HAIM Non-Admin Reason: Patient Refused Torsemide (Torsemide 20 Mg Tablet) 40 mg PO BID [facility]; Protocol Last Admin: 08/29/22 20:59 Dose: 40 mg Documented By: COLTON Labs 08/26/22 06:44 08/27/22 06:22 Labs: Laboratory Results - last 24 hr 08/29/22 08/29/22 08/29/22 11:16 16:14 20:50 POC Glucose 167 H 167 H 241 H 08/30/22 07:13 POC Glucose 210 H Assessment and Plan (1) Hypertensive urgency: Status: Acute (2) Intractable nausea and vomiting: Status: Acute Plan d#4 31yo F with HTN, chronic HFrEF, DM2 with retinopathy, mood disorder, PAD s/p TMTA, ERSD recently started on HD during recent hospitalization for NSTEMI, recent hospitalization for hyperglycemia, admitted for intractable N/V # N/V - seems to be due to gastric ulcers + gastroparesis per upper GI series - continue PPI + sucralfate - continue metoclopramide - EGD recommended but pt refusing # atypical chest pain, resolved - troponins flat, EKG without evidence of acute ischemia - CXR negative - Imdur 15 mg daily added - negative bilateral venous duplex #ESRD on HD - continue HD as scheduled TTS; Nephrology consulted # insulin-dependent type 2 diabetes - muna-dose lispro # CAD with recent NSTEMI 08/14/22 - no anginal chest pain currently. EKG nonischemic, troponin flat continue dual antiplatelet therapy, carvedilol, atorvastatin # hypertensive urgency - better controlled after HD - continue home meds: carvedilol, hyralazine, losartan, Imdur, nifedipine, torsemide # mood disorder - continue home meds # PAD - continue DAPT # chronic HFrEF - no acute exacerbation - continue torsemide + antihypertensives # anemia of ESRD - continue Fe, monitor H+H # VTE ppx: UFH # dispo: eventual home In my clinical judgment, the patient requires continued inpatient hospitalization for the following reasons: abd pain Time Spent With Patient Time: Total time managing care of this patient today __35__ minutes. Quality Stroke Does the patient have a stroke diagnosis?: No VTE Prior VTE?: No VTE Risk Level:: Medical - moderate - high VTE Device Contraindication: Treatment Not Indicated VTE Drug Contraindication: N/A - Med Ordered
[2022-08-30] MEDS: 0.9 % Sodium Chloride Flush 3 ML SYRINGE IVFLUSH ×2 (10:26→16:53)
[2022-08-30] MEDS: hydrALAZINE HCl 25 MG TABLET 75 MG PO ×3 (10:27→22:35)
[2022-08-30] MEDS: Isosorbide Mononitrate 30 MG TAB.ER.24H 15 MG PO (10:27)
[2022-08-30] MEDS: Clopidogrel Bisulfate 75 MG TABLET PO (10:27)
[2022-08-30] MEDS: NIFEdipine ER 60 MG TAB.ER.24 PO (10:28)
[2022-08-30] MEDS: Ferrous Sulfate 324 MG TABLET.DR PO (10:28)
[2022-08-30] MEDS: Losartan Potassium 25 MG TABLET PO (10:29)
[2022-08-30] MEDS: carvediloL 12.5 MG TABLET 25 MG PO ×2 (10:29→22:34)
[2022-08-30] MEDS: predniSONE 10 MG TABLET 5 MG PO (10:29)
[2022-08-30] MEDS: Aspirin Enteric Coated 81 MG TABLET.DR PO (10:30)
[2022-08-30] MEDS: Torsemide 20 MG TABLET 40 MG PO ×2 (10:30→22:33)
--- NOTE | 2022-08-30 10:30 | PM.PNNEP ---
Subjective Subjective Date of Service: 08/30/22 Interval history: Denies abd pain/N/V Feels better Physical Exam Vital Signs: Vital Signs: Last Vital Signs Temp 97 F 08/30/22 07:13 Pulse 82 08/30/22 07:13 Resp 18 08/30/22 07:13 BP 138/76 08/30/22 07:13 Pulse Ox 97 08/30/22 07:13 O2 Del Method Room Air 08/30/22 07:13 BMI result Body Mass Index 36.0 Comfortable Neck is supple Lung: Air entry equal Heart: S1,S2, normal. No rub Abd: Soft. BS + NS : Alert.No asterexis Ext: 1+ edema Const: Other: Constitutional : Awake, interactive, restless Neck : Normal inspection, Supple Cardiovascular : RRR, elevated? JVP, trace lower extremity edema Respiratory : fair bilateral air entry,? basal fine crackles, wheezes or rhonchi Gastrointestinal:? soft, lax, Normal bowel sounds, Non tender Skin : Warm, Dry. PErmacath place clean with no erthyma Neurological : Alert & oriented x3, No focal deficit Objective Data Labs 08/26/22 06:44 08/27/22 06:22 Labs: Laboratory Results - last 24 hr 08/29/22 08/29/22 08/29/22 11:16 16:14 20:50 POC Glucose 167 H 167 H 241 H 08/30/22 07:13 POC Glucose 210 H Procedures Date of Service Date of Service: 08/30/22 Assessment & Plan Assessment and plan (1) Hypertensive urgency: Status: Acute (2) End-stage renal disease (ESRD): Status: Resolved Plan YOUNG WOMAN WITH LONGSTANDING DIABETES MELLITUS AND UNCONTROLLED HYPERTENSION WITH NEWLY DIAGNOSED ESRD. UNCONTROLLED HYPERTENSION IS PRIMARILY DUE TO FLUID OVERLOAD. SHE IS ALSO NONCOMPLIANT WITH HER MEDICATIONS. ANEMIA DUE TO UNDERLYING CHRONIC KIDNEY DISEASE. MILD HYPERKALEMIA IN THE SETTING OF ESRD. RECOMMENDATION Continue hemodialysis 3 times a week. In house she is TTS Out Pt HD on MWF 3rd shift at 4.30 PM D/w pt about compliance USE LOW-POTASSIUM BATH. REMOVE FLUID TOLERATED during dialysis. 20 K Epogen today for anemia. NEphrocap started Thx . Time Spent With Patient Time: Total time managing care of this patient today ____ minutes. Progress Note: Quality Stroke Does the patient have a stroke diagnosis?: No
--- NOTE | 2022-08-30 11:09 | HO.ANESPROP2 ---
HPI - Anesthesia Eval Consult details Narrative: upper GI PMFSH Active Problems Active Problems: All Active Problems (Updated 08/28/22 @ 00:03 by Background Daemon) Hypertensive urgency (Acute) Intractable nausea and vomiting (Acute) Atypical chest pain (Acute) Myalgia (Acute) Edema, peripheral (Acute) Chest pain (Acute) Pericarditis (Acute) Headache, migraine (Acute) Unspecified hypertension, condition or complication (Acute) Past Medical History Medical History (Updated 08/28/22 @ 00:03 by Background Daemon) Abnormal finding on echocardiogram Acute dyspnea Acute on chronic systolic and diastolic heart failure, NYHA class 3 Acute worsening of stage 3 chronic kidney disease MYNOR (acute kidney injury) Anemia Anemia in chronic kidney disease (CKD) Asthma Atypical chest pain Back pain Blind right eye Bone infection Cardiomyopathy Cellulitis Cellulitis and abscess of foot delivery delivered Chest pain CHF (congestive heart failure) (~06/07/22) CKD (chronic kidney disease) CKD (chronic kidney disease) CKD (chronic kidney disease) stage 4, GFR 15-29 ml/min Depression with anxiety Diabetes Diabetic retinopathy DM foot ulcer Elevated troponin ESRD needing dialysis Essential hypertension Fever Generalized edema HFrEF (heart failure with reduced ejection fraction) HTN (hypertension) Hypertension (~06/10/22) Metabolic acidosis Migraine Osteomyelitis PAD (peripheral artery disease) Pleural effusion test positive test positive Sepsis Severe anemia Tachycardia Type 2 diabetes mellitus with hyperglycemia, with long-term current use of insulin Family History Family History Mother Coronary artery disease Myocardial infarction Stroke Diabetes mellitus Father Myocardial infarction Family history of problems with anesthesia: No Surgical History Surgical History History of transmetatarsal amputation of foot S/P transmetatarsal amputation of foot History of Problems with Anesthesia: No Social History Social History Household Members: Family Household Members Other:: Sister, [id number], nephew Housing: House Do you presently have visiting nurse or other home services: No Alcohol intake: never Patient Tobacco Use Status: Never used Tobacco Smoked in Last 30 Days: No e-Cigarette/Vaping Use: Never Used Second Hand Smoke Exposure: No Use of substances other than those prescribed or required for medical reasons: No Currently Displaying Signs/Symptoms of Drug Intoxication Withdrawal: No Advance Directives: Yes Advance Directives on File: Yes Advance Directives Date on File: 03/08/20 Nutrition Risks: No Nutritional Risk Patient : No service: No Current occupational status: unemployed and disabled Gender identity: Female Meds Allergies Allergy/AdvReac Type Severity Reaction Status Date / Time morphine [MORPHINE] Allergy Intermediate Itching Verified 08/21/22 01:18 azithromycin [From Zithromax] Allergy Hives Verified 08/21/22 01:18 gabapentin Allergy Facial Verified 08/21/22 01:18 Swelling tramadol Allergy Facial Verified 08/21/22 01:18 Swelling vancomycin Allergy Hives Verified 08/21/22 01:18 Active Medications: Current Medications Acetaminophen (Acetaminophen 325 Mg Tablet) 650 mg PO Q6H PRN PRN Reason: Pain, Mild (Pain Scale 1-3) Aspirin (Aspirin Enteric Coated 81 Mg Tablet.) 81 mg PO DAILY [facility] Last Admin: 08/30/22 10:30 Dose: 81 mg Atorvastatin Calcium (Atorvastatin Calcium 40 Mg Tablet) 40 mg PO BEDTIME [facility] Last Admin: 08/29/22 21:00 Dose: 40 mg Carvedilol (Carvedilol 12.5 Mg Tablet) 25 mg PO BID [facility]; Protocol Last Admin: 08/30/22 10:29 Dose: 25 mg Clopidogrel Bisulfate (Clopidogrel Bisulfate 75 Mg Tablet) 75 mg PO DAILY [facility] Last Admin: 08/30/22 10:27 Dose: 75 mg Dextrose (Dextrose 50 % 25 Gm/50 Ml Syringe) 25 gm IVPUSH Q15M PRN; Protocol PRN Reason: per Hypoglycemia Standing Ord. Docusate Sodium (Docusate Sodium 100 Mg Capsule) 100 mg PO DAILY PRN PRN Reason: Constipation Famotidine (Famotidine/Pf 20 Mg/2 Ml Vial) 20 mg IVPUSH BID [facility] Last Admin: 08/30/22 09:00 Dose: 20 mg Ferrous Sulfate (Ferrous Sulfate 324 Mg Tablet.) 324 mg PO DAILY [facility] Last Admin: 08/30/22 10:28 Dose: 324 mg Glucose (Glucose Gel 15 Gm Gel..Gram.) 15 gm PO Q15M PRN; Protocol PRN Reason: per Hypoglycemia Standing Ord. Heparin Sodium (Porcine) (Heparin Sodium,Porcine 5,000 Unit/Ml Vial) 5,000 unit SUBCUT Q12H [facility] Last Admin: 08/29/22 22:00 Dose: 5,000 unit Hydralazine HCl (Hydralazine Hcl 25 Mg Tablet) 75 mg PO TID [facility]; Protocol Last Admin: 08/30/22 10:27 Dose: 75 mg Hydromorphone HCl (Hydromorphone Hcl 0.5 Mg/0.5 Ml Syringe) 0.25 mg IVPUSH Q4H PRN; Protocol PRN Reason: Pain, Severe (Pain Scale 7-10) Last Admin: 08/30/22 10:25 Dose: 0.25 mg Insulin Human Lispro (Insulin Lispro 100 Unit/Ml 3 Ml Vial) 0 unit SUBCUT QIDACHS [facility]; Protocol Last Admin: 08/30/22 09:17 Dose: Not Given Isosorbide Mononitrate (Isosorbide Mononitrate 30 Mg Tab.Er.24h) 15 mg PO DAILY [facility]; Protocol Last Admin: 08/30/22 10:27 Dose: 15 mg Lidocaine (Lidocaine 4 % Patch Adh..Patch) 1 patch TRANSDERMA DAILY [facility]; Protocol Last Admin: 08/30/22 09:00 Dose: 1 patch Losartan Potassium (Losartan Potassium 25 Mg Tablet) 25 mg PO DAILY [facility]; Protocol Last Admin: 08/30/22 10:29 Dose: 25 mg Metoclopramide HCl (Metoclopramide Hcl 5 Mg Tablet) 5 mg PO TIDAC [facility] Last Admin: 08/30/22 09:18 Dose: Not Given Nifedipine (Nifedipine Er 60 Mg Tab.Er.24) 60 mg PO DAILY [facility]; Protocol Last Admin: 08/30/22 10:28 Dose: 60 mg Omeprazole (Omeprazole 40 Mg Capsule.Dr) 40 mg PO DAILY@0630 [facility] Last Admin: 08/30/22 06:03 Dose: 40 mg Ondansetron HCl (Ondansetron Hcl 4 Mg/2 Ml Vial) 4 mg IVPUSH Q8H PRN PRN Reason: Nausea and Vomiting Last Admin: 08/28/22 11:52 Dose: 4 mg Prednisone (Prednisone 10 Mg Tablet) 5 mg PO DAILY [facility]; Taper Stop: 09/03/22 08:59 Last Admin: 08/30/22 10:29 Dose: 5 mg Sodium Chloride (0.9 % Sodium Chloride Flush 3 Ml Syringe) 3 ml IVFLUSH QSHIFT [facility] Last Admin: 08/30/22 10:26 Dose: 3 ml Sucralfate (Sucralfate 1 Gm Tablet) 1 gm PO QIDACHS [facility] Last Admin: 08/30/22 09:17 Dose: Not Given Torsemide (Torsemide 20 Mg Tablet) 40 mg PO BID [facility]; Protocol Last Admin: 08/30/22 10:30 Dose: 40 mg Home Medications Medication Instructions Recorded Confirmed Last Taken Type docusate sodium 100 mg capsule 100 mg PO DAILY PRN constipation 08/13/22 08/25/22 Unknown History oxycodone 5 mg tablet 5 mg PO Q6H PRN severe pain 08/13/22 08/25/22 Unknown History prednisone 10 mg tablet See Taper PO 1XD 08/13/22 08/25/22 08/24/22 History hydralazine 25 mg tablet 75 mg PO TID 08/25/22 08/25/22 08/24/22 History Exam Exam Date and Time: August 30, 2022 110 Height,Weight and Vital Signs: Height 5 ft 5 in Weight 98.2 kg Last Vital Signs Temp 97 F 08/30/22 07:13 Pulse 82 08/30/22 07:13 Resp 18 08/30/22 07:13 BP 138/76 08/30/22 07:13 Pulse Ox 97 08/30/22 07:13 O2 Del Method Room Air 08/30/22 07:13 Pertinent Lab Results Pertinent Lab Results: Laboratory Tests 08/25/22 08/25/22 08/25/22 13:44 14:58 14:58 WBC 8.3 RBC 3.41 L Hgb 9.2 L Hct 30.0 L MCV 88.0 MCH 27.0 MCHC 30.7 L RDW 19.9 H Plt Count 211 D MPV 12.8 H Immature Gran % (Auto) 0.8 H Neut % (Auto) 74.7 H Lymph % (Auto) 9.1 L Brule % (Auto) 13.2 H Eos % (Auto) 2.2 Baso % (Auto) 0.0 Lymph # (Auto) 0.8 L Brule # (Auto) 1.1 Eos # (Auto) 0.2 Baso # (Auto) 0.0 Abs Immat Gran (auto) 0.07 H Absolute Neuts (auto) 6.2 Absolute Nucleated RBC 0.000 Nucleated RBC % (auto) 0.0 PT 11.8 INR 1.0 APTT 27.3 D Sodium Potassium Chloride Carbon Dioxide Anion Gap BUN Creatinine Estim Creat Clear Calc Estimated GFR POC Glucose 99 Random Glucose Calcium Total Bilirubin AST ALT Alkaline Phosphatase Troponin I High Sens Total Protein Albumin Lipase COVID-19 (CARO) COVID-19 Clin Com 08/25/22 08/25/22 08/25/22 14:58 14:58 15:33 WBC RBC Hgb Hct MCV MCH MCHC RDW Plt Count MPV Immature Gran % (Auto) Neut % (Auto) Lymph % (Auto) Brule % (Auto) Eos % (Auto) Baso % (Auto) Lymph # (Auto) Brule # (Auto) Eos # (Auto) Baso # (Auto) Abs Immat Gran (auto) Absolute Neuts (auto) Absolute Nucleated RBC Nucleated RBC % (auto) PT INR APTT Sodium 138 Potassium 5.0 Chloride 110 H Carbon Dioxide 22 Anion Gap 11 L BUN 66 H Creatinine 2.84 H Estim Creat Clear Calc 32.3 Estimated GFR 19 POC Glucose Random Glucose 112 Calcium 7.5 L D Total Bilirubin 1.0 AST 21 ALT 22 Alkaline Phosphatase 68 Troponin I High Sens 62.9 H* D Total Protein 5.6 L Albumin 2.6 L Lipase 53 COVID-19 (CARO) Negative COVID-19 Clin Com See Note 08/25/22 08/26/22 08/26/22 18:07 06:44 06:45 WBC 6.6 RBC 3.22 L Hgb 8.6 L Hct 27.8 L MCV 86.3 MCH 26.7 L MCHC 30.9 L RDW 20.0 H Plt Count 167 MPV 12.0 Immature Gran % (Auto) 0.6 H Neut % (Auto) 74.6 H Lymph % (Auto) 11.2 L Brule % (Auto) 11.9 H Eos % (Auto) 1.5 Baso % (Auto) 0.2 Lymph # (Auto) 0.7 L Brule # (Auto) 0.8 Eos # (Auto) 0.1 Baso # (Auto) 0.0 Abs Immat Gran (auto) 0.04 H Absolute Neuts (auto) 5.0 Absolute Nucleated RBC 0.000 Nucleated RBC % (auto) 0.0 PT INR APTT Sodium 136 Potassium 5.2 H Chloride 107 Carbon Dioxide 20 L Anion Gap 14 BUN 62 H Creatinine 3.10 H Estim Creat Clear Calc 29.6 Estimated GFR 17 POC Glucose Random Glucose 94 Calcium 8.0 L D Total Bilirubin AST ALT Alkaline Phosphatase Troponin I High Sens 57.3 H* Total Protein Albumin Lipase COVID-19 (CARO) COVID-19 [employer] Com 08/26/22 08/26/22 08/26/22 07:31 11:03 16:48 WBC RBC Hgb Hct MCV MCH MCHC RDW Plt Count MPV Immature Gran % (Auto) Neut % (Auto) Lymph % (Auto) Brule % (Auto) Eos % (Auto) Baso % (Auto) Lymph # (Auto) Brule # (Auto) Eos # (Auto) Baso # (Auto) Abs Immat Gran (auto) Absolute Neuts (auto) Absolute Nucleated RBC Nucleated RBC % (auto) PT INR APTT Sodium Potassium Chloride Carbon Dioxide Anion Gap BUN Creatinine Estim Creat Clear Calc Estimated GFR POC Glucose 96 170 H 141 H Random Glucose Calcium Total Bilirubin AST ALT Alkaline Phosphatase Troponin I High Sens Total Protein Albumin Lipase COVID-19 (CARO) COVID-19 [employer] 08/26/22 08/27/22 08/27/22 19:52 06:22 07:37 WBC RBC Hgb Hct MCV MCH MCHC RDW Plt Count MPV Immature Gran % (Auto) Neut % (Auto) Lymph % (Auto) Brule % (Auto) Eos % (Auto) Baso % (Auto) Lymph # (Auto) Brule # (Auto) Eos # (Auto) Baso # (Auto) Abs Immat Gran (auto) Absolute Neuts (auto) Absolute Nucleated RBC Nucleated RBC % (auto) PT INR APTT Sodium 135 Potassium 4.2 Chloride 101 Carbon Dioxide 24 Anion Gap 14 BUN 34 H Creatinine 2.50 H Estim Creat Clear Calc 36.7 Estimated GFR 22 POC Glucose 178 H 225 H Random Glucose 209 H Calcium 8.2 L Total Bilirubin AST ALT Alkaline Phosphatase Troponin I High Sens Total Protein Albumin Lipase COVID-19 (CARO) COVID-19 [employer] Com 08/27/22 08/27/22 08/27/22 11:10 16:02 19:41 WBC RBC Hgb Hct MCV MCH MCHC RDW Plt Count MPV Immature Gran % (Auto) Neut % (Auto) Lymph % (Auto) Brule % (Auto) Eos % (Auto) Baso % (Auto) Lymph # (Auto) Brule # (Auto) Eos # (Auto) Baso # (Auto) Abs Immat Gran (auto) Absolute Neuts (auto) Absolute Nucleated RBC Nucleated RBC % (auto) PT INR APTT Sodium Potassium Chloride Carbon Dioxide Anion Gap BUN Creatinine Estim Creat Clear Calc Estimated GFR POC Glucose 116 H 310 H 314 H Random Glucose Calcium Total Bilirubin AST ALT Alkaline Phosphatase Troponin I High Sens Total Protein Albumin Lipase COVID-19 (CARO) COVID-19 Clin Com 08/28/22 08/28/22 08/28/22 07:51 11:42 16:10 WBC RBC Hgb Hct MCV MCH MCHC RDW Plt Count MPV Immature Gran % (Auto) Neut % (Auto) Lymph % (Auto) Brule % (Auto) Eos % (Auto) Baso % (Auto) Lymph # (Auto) Brule # (Auto) Eos # (Auto) Baso # (Auto) Abs Immat Gran (auto) Absolute Neuts (auto) Absolute Nucleated RBC Nucleated RBC % (auto) PT INR APTT Sodium Potassium Chloride Carbon Dioxide Anion Gap BUN Creatinine Estim Creat Clear Calc Estimated GFR POC Glucose 289 H 104 117 H Random Glucose Calcium Total Bilirubin AST ALT Alkaline Phosphatase Troponin I High Sens Total Protein Albumin Lipase COVID-19 (CARO) COVID-19 [employer] 08/29/22 08/29/22 08/29/22 07:16 11:16 16:14 WBC RBC Hgb Hct MCV MCH MCHC RDW Plt Count MPV Immature Gran % (Auto) Neut % (Auto) Lymph % (Auto) Brule % (Auto) Eos % (Auto) Baso % (Auto) Lymph # (Auto) Brule # (Auto) Eos # (Auto) Baso # (Auto) Abs Immat Gran (auto) Absolute Neuts (auto) Absolute Nucleated RBC Nucleated RBC % (auto) PT INR APTT Sodium Potassium Chloride Carbon Dioxide Anion Gap BUN Creatinine Estim Creat Clear Calc Estimated GFR POC Glucose 120 H 167 H 167 H Random Glucose Calcium Total Bilirubin AST ALT Alkaline Phosphatase Troponin I High Sens Total Protein Albumin Lipase COVID-19 (CARO) COVID-19 [employer] Com 08/29/22 08/30/22 08/30/22 20:50 07:13 11:03 WBC RBC Hgb Hct MCV MCH MCHC RDW Plt Count MPV Immature Gran % (Auto) Neut % (Auto) Lymph % (Auto) Brule % (Auto) Eos % (Auto) Baso % (Auto) Lymph # (Auto) Brule # (Auto) Eos # (Auto) Baso # (Auto) Abs Immat Gran (auto) Absolute Neuts (auto) Absolute Nucleated RBC Nucleated RBC % (auto) PT INR APTT Sodium Potassium Chloride Carbon Dioxide Anion Gap BUN Creatinine Estim Creat Clear Calc Estimated GFR POC Glucose 241 H 210 H 232 H Random Glucose Calcium Total Bilirubin AST ALT Alkaline Phosphatase Troponin I High Sens Total Protein Albumin Lipase COVID-19 (CARO) COVID-19 Clin Com Airway Mallampati Class: III TM Dist: >3cm Heart: rrr Lungs: cta Assessment and Plan Final Anesthetic Review Family History of Problems with Anesthesia: No History of Problems with Anesthesia: No NPO: Yes ASA Class: IV Final Preanesthetic Review: No Changes in Pt Med Stat, Meds/Allgs Chart Reviewed, Consent Obtained/Reviewed and Anes Risks/Benef Reviewed Patient Risk: High Procedure Risk: Intermediate Anesthetic Plan Anesthetic Plan: MAC: and Agree w/ Assess. and Plan Disposition: Standard PACU
[2022-08-30] MEDS: Insulin Lispro 100 UNIT/ML 3 ML VIAL SUBCUT ×3 (11:21→22:36)
[2022-08-30] MEDS: Heparin Sodium,Porcine 5,000 UNIT/ML VIAL 5000 UNIT SUBCUT ×2 (11:28→22:35)
--- NOTE | 2022-08-30 11:48 | MHC.CM.PN ---
EMR REVIEWED AND PER MD ROUNDS/DR. LERNER, PT WILL NOW HAVE A NEW OP HD SCHEDULE AT [facility] AT 4:30 PM. CM WILL CONTINUE TO FOLLOW FOR ANY CHANGES IN DC NEEDS/PLAN.
[2022-08-30] MEDS: ondansetron HCL 4 MG/2 ML VIAL IVPUSH ×2 (14:39→22:36)
--- NOTE | 2022-08-30 14:54 | HO.SKINPHOTO ---
Location: Category: Stage: Length: Width: Depth: cm Location: Category: Stage: Length: Width: Depth: cm Location: Category: Stage: Length: Width: Depth: cm Location: Category: Stage: Length: Width: Depth: cm Location: Category: Stage: Length: Width: Depth: cm Location: Category: Stage: Length: Width: Depth: cm
[2022-08-30 15:31] VITALS: BP 114/57; PULSE 72; RESP 16; TEMP 36.6; O2SAT 92
[2022-08-30 19:37] VITALS: BP 131/76; PULSE 74; RESP 17; TEMP 36.6; O2SAT 94
[2022-08-30] MEDS: Atorvastatin Calcium 40 MG TABLET PO (22:35)
[2022-08-31] MEDS: HYDROmorphone HCl 0.5 MG/0.5 ML SYRINGE 0.25 MG IVPUSH ×5 (02:24→20:29)
[2022-08-31 04:00] VITALS: RESP 16; TEMP 36.2
[2022-08-31 07:50] VITALS: BP 119/67; PULSE 77; RESP 18; TEMP 36.2
[2022-08-31] MEDS: ondansetron HCL 4 MG/2 ML VIAL IVPUSH (08:15)
[2022-08-31] MEDS: 0.9 % Sodium Chloride Flush 3 ML SYRINGE IVFLUSH ×2 (08:15→16:13)
[2022-08-31] MEDS: Insulin Lispro 100 UNIT/ML 3 ML VIAL SUBCUT ×3 (08:16→20:30)
--- NOTE | 2022-08-31 09:04 | HO.PM.IMPN ---
Subjective Subjective Date of Service: 08/31/22 Interval History: tried to drink/eat but developed N/V and epigastric pain Review of Systems Review of Systems: Yes all other systems are reviewed and are negative Physical Exam Vital Signs: Vital Signs: Last Vital Signs Temp 97.2 F 08/31/22 07:50 Pulse 77 08/31/22 07:50 Resp 18 08/31/22 07:50 BP 119/67 08/31/22 07:50 Pulse Ox 94 08/30/22 19:37 O2 Del Method Room Air 08/31/22 07:50 BMI result Body Mass Index 36.0 Gen: in no acute distress HEENT: sclera anicteric, moist mucus membranes, blind Neck: supple Lungs: clear to auscultation bilaterally Heart: regular rate and rhythm, no murmurs Abd: soft, epigastric tenderness, no rebound Ext: trace leg edema bilaterally Skin: warm/well-perfused Neuro: alert and oriented x3, no focal findings Psych: appropriate affect Objective Data Active Medications Acetaminophen (Acetaminophen 325 Mg Tablet) 650 mg PO Q6H PRN PRN Reason: Pain, Mild (Pain Scale 1-3) Aspirin (Aspirin Enteric Coated 81 Mg Tablet.) 81 mg PO DAILY [facility] Last Admin: 08/30/22 10:30 Dose: 81 mg Documented By: HAIM Atorvastatin Calcium (Atorvastatin Calcium 40 Mg Tablet) 40 mg PO BEDTIME [facility] Last Admin: 08/30/22 22:35 Dose: 40 mg Documented By: MARKEL Carvedilol (Carvedilol 12.5 Mg Tablet) 25 mg PO BID [facility]; Protocol Last Admin: 08/30/22 22:34 Dose: 25 mg Documented By: MARKEL Clopidogrel Bisulfate (Clopidogrel Bisulfate 75 Mg Tablet) 75 mg PO DAILY [facility] Last Admin: 08/30/22 10:27 Dose: 75 mg Documented By: HAIM Dextrose (Dextrose 50 % 25 Gm/50 Ml Syringe) 25 gm IVPUSH Q15M PRN; Protocol PRN Reason: per Hypoglycemia Standing Ord. Diphenhydramine HCl (Diphenhydramine Hcl 50 Mg/Ml Vial) 25 mg IM Q6H [facility] Docusate Sodium (Docusate Sodium 100 Mg Capsule) 100 mg PO DAILY PRN PRN Reason: Constipation Famotidine (Famotidine/Pf 20 Mg/2 Ml Vial) 20 mg IVPUSH BID [facility] Last Admin: 08/30/22 22:35 Dose: 20 mg Documented By: MARKEL Ferrous Sulfate (Ferrous Sulfate 324 Mg Tablet.Dr) 324 mg PO DAILY [facility] Last Admin: 08/30/22 10:28 Dose: 324 mg Documented By: HAIM Glucose (Glucose Gel 15 Gm Gel..Gram.) 15 gm PO Q15M PRN; Protocol PRN Reason: per Hypoglycemia Standing Ord. Heparin Sodium (Porcine) (Heparin Sodium,Porcine 5,000 Unit/Ml Vial) 5,000 unit SUBCUT Q12H [facility] Last Admin: 08/30/22 22:35 Dose: 5,000 unit Documented By: MARKEL Hydralazine HCl (Hydralazine Hcl 25 Mg Tablet) 75 mg PO TID [facility]; Protocol Last Admin: 08/30/22 22:35 Dose: 75 mg Documented By: MARKEL Hydromorphone HCl (Hydromorphone Hcl 0.5 Mg/0.5 Ml Syringe) 0.25 mg IVPUSH Q4H PRN; Protocol PRN Reason: Pain, Severe (Pain Scale 7-10) Last Admin: 08/31/22 06:31 Dose: 0.25 mg Documented By: MARKEL Insulin Human Lispro (Insulin Lispro 100 Unit/Ml 3 Ml Vial) 0 unit SUBCUT QIDACHS [facility]; Protocol Last Admin: 08/31/22 08:16 Dose: 2 unit Documented By: HAIM Isosorbide Mononitrate (Isosorbide Mononitrate 30 Mg Tab.Er.24h) 15 mg PO DAILY [facility]; Protocol Last Admin: 08/30/22 10:27 Dose: 15 mg Documented By: HAIM Lidocaine (Lidocaine 4 % Patch Adh..Patch) 1 patch TRANSDERMA DAILY [facility]; Protocol Last Admin: 08/30/22 09:00 Dose: 1 patch Documented By: HAIM Losartan Potassium (Losartan Potassium 25 Mg Tablet) 25 mg PO DAILY [facility]; Protocol Last Admin: 08/30/22 10:29 Dose: 25 mg Documented By: HAIM Metoclopramide HCl (Metoclopramide Hcl 10 Mg/2 Ml Vial) 5 mg IVPUSH TIDAC [facility] Nifedipine (Nifedipine Er 60 Mg Tab.Er.24) 60 mg PO DAILY [facility]; Protocol Last Admin: 08/30/22 10:28 Dose: 60 mg Documented By: HAIM Omeprazole (Omeprazole 40 Mg Capsule.Dr) 40 mg PO DAILY@0630 [facility] Last Admin: 08/31/22 05:00 Dose: Not Given Documented By: MARKEL Non-Admin Reason: Patient Refused Ondansetron HCl (Ondansetron Hcl 4 Mg/2 Ml Vial) 4 mg IVPUSH Q8H PRN PRN Reason: Nausea and Vomiting Last Admin: 08/31/22 08:15 Dose: 4 mg Documented By: HAIM Prednisone (Prednisone 10 Mg Tablet) 5 mg PO DAILY [facility]; Taper Stop: 09/03/22 08:59 Last Admin: 08/30/22 10:29 Dose: 5 mg Documented By: HAIM Sodium Chloride (0.9 % Sodium Chloride Flush 3 Ml Syringe) 3 ml IVFLUSH QSHIFT [facility] Last Admin: 08/31/22 08:15 Dose: 3 ml Documented By: HAIM Sucralfate (Sucralfate 1 Gm Tablet) 1 gm PO QIDACHS [facility] Last Admin: 08/31/22 08:55 Dose: Not Given Documented By: HAIM Non-Admin Reason: Patient Refused Torsemide (Torsemide 20 Mg Tablet) 40 mg PO BID [facility]; Protocol Last Admin: 08/30/22 22:33 Dose: 40 mg Documented By: MARKEL Labs 08/26/22 06:44 08/27/22 06:22 Labs: Laboratory Results - last 24 hr 08/30/22 08/30/22 08/30/22 11:03 16:24 19:39 POC Glucose 232 H 231 H 226 H 08/31/22 07:49 POC Glucose 187 H Assessment and Plan (1) Hypertensive urgency: Status: Resolved (2) Intractable nausea and vomiting: Status: Resolved Plan d#5 31yo F with HTN, chronic HFrEF, DM2 with retinopathy, mood disorder, PAD s/p TMTA, ERSD recently started on HD during recent hospitalization for NSTEMI, recent hospitalization for hyperglycemia, admitted for intractable N/V # N/V - seems to be due to gastric ulcers + gastroparesis per upper GI series - continue PPI + sucralfate - continue ondansetron - continue metoclopramide but change to IV - add diphenhydramine IV which per pt has worked well in past - EGD recommended but pt refused 08/30, now willing to undergo, will contact GI # atypical chest pain, resolved - troponins flat, EKG without evidence of acute ischemia - CXR negative - Imdur 15 mg daily added - negative bilateral venous duplex # ESRD on HD - continue HD as scheduled TTS; Nephrology consulted # insulin-dependent type 2 diabetes - muna-dose lispro # CAD with recent NSTEMI 08/14/22 - no anginal chest pain currently. EKG nonischemic, troponin flat - continue dual antiplatelet therapy, carvedilol, atorvastatin # hypertensive urgency - better controlled after HD - continue home meds: carvedilol, hyralazine, losartan, Imdur, nifedipine, torsemide # mood disorder - continue home meds # PAD - continue DAPT # chronic HFrEF - no acute exacerbation - continue torsemide + antihypertensives # anemia of ESRD - continue Fe, monitor H+H # VTE ppx: UFH # dispo: eventual home In my clinical judgment, the patient requires continued inpatient hospitalization for the following reasons: abd pain, EGD Time Spent With Patient Time: Total time managing care of this patient today _35___ minutes. Quality Stroke Does the patient have a stroke diagnosis?: No VTE Prior VTE?: No VTE Risk Level:: Medical - moderate - high VTE Device Contraindication: Treatment Not Indicated VTE Drug Contraindication: N/A - Med Ordered
[2022-08-31] MEDS: Famotidine/PF 20 MG/2 ML VIAL IVPUSH ×2 (09:52→20:29)
[2022-08-31] MEDS: Isosorbide Mononitrate 30 MG TAB.ER.24H 15 MG PO (09:54)
[2022-08-31] MEDS: Torsemide 20 MG TABLET 40 MG PO ×2 (09:54→20:30)
[2022-08-31] MEDS: hydrALAZINE HCl 25 MG TABLET 75 MG PO ×3 (09:54→20:30)
[2022-08-31] MEDS: NIFEdipine ER 60 MG TAB.ER.24 PO (09:55)
[2022-08-31] MEDS: Losartan Potassium 25 MG TABLET PO (09:55)
[2022-08-31] MEDS: carvediloL 12.5 MG TABLET 25 MG PO ×2 (09:55→20:30)
[2022-08-31] MEDS: Aspirin Enteric Coated 81 MG TABLET.DR PO (09:56)
[2022-08-31] MEDS: Clopidogrel Bisulfate 75 MG TABLET PO (09:56)
[2022-08-31] MEDS: Ferrous Sulfate 324 MG TABLET.DR PO (09:56)
[2022-08-31] MEDS: predniSONE 10 MG TABLET 5 MG PO (09:56)
[2022-08-31] MEDS: Lidocaine 4 % Patch ADH..PATCH 1 PATCH TRANSDERMA (10:39)
[2022-08-31] MEDS: Heparin Sodium,Porcine 5,000 UNIT/ML VIAL 5000 UNIT SUBCUT (11:17)
[2022-08-31 16:00] VITALS: BP 128/59; PULSE 88; RESP 18; TEMP 36.3; O2SAT 92
[2022-08-31 19:22] VITALS: BP 100/56; PULSE 84; RESP 18; TEMP 36.4; O2SAT 95
[2022-08-31] MEDS: Atorvastatin Calcium 40 MG TABLET PO (20:30)
[2022-08-31] MEDS: diphenhydrAMINE HCL 50 MG/ML VIAL 25 MG IVPUSH (20:48)
--- NOTE | 2022-08-31 22:33 | PM.PNNEP ---
Subjective Subjective Date of Service: 08/31/22 Interval history: Seen on HD Sleepy Physical Exam Vital Signs: Vital Signs: Last Vital Signs Temp 97.5 F 08/31/22 19:22 Pulse 84 08/31/22 19:22 Resp 18 08/31/22 19:22 BP 100/56 L 08/31/22 19:22 Pulse Ox 95 08/31/22 19:22 O2 Del Method Room Air 08/31/22 19:22 BMI result Body Mass Index 36.0 Comfortable Neck is supple Lung: Air entry equal Heart: S1,S2, normal. No rub Abd: Soft. BS + NS : Alert.No asterexis Ext: 1+ edema Const: Other: Constitutional : Awake, interactive, restless Neck : Normal inspection, Supple Cardiovascular : RRR, elevated? JVP, trace lower extremity edema Respiratory : fair bilateral air entry,? basal fine crackles, wheezes or rhonchi Gastrointestinal:? soft, lax, Normal bowel sounds, Non tender Skin : Warm, Dry. PErmacath place clean with no erthyma Neurological : Alert & oriented x3, No focal deficit Objective Data Labs 08/26/22 06:44 08/27/22 06:22 Labs: Laboratory Results - last 24 hr 08/31/22 08/31/22 08/31/22 07:49 10:54 16:06 POC Glucose 187 H 154 H 166 H 08/31/22 20:19 POC Glucose 223 H Procedures Date of Service Date of Service: 08/31/22 Assessment & Plan Assessment and plan (1) Hypertensive urgency: Status: Resolved (2) End-stage renal disease (ESRD): Status: Resolved Plan YOUNG WOMAN WITH LONGSTANDING DIABETES MELLITUS AND UNCONTROLLED HYPERTENSION WITH NEWLY DIAGNOSED ESRD. UNCONTROLLED HYPERTENSION IS PRIMARILY DUE TO FLUID OVERLOAD. SHE IS ALSO NONCOMPLIANT WITH HER MEDICATIONS. ANEMIA DUE TO UNDERLYING CHRONIC KIDNEY DISEASE. MILD HYPERKALEMIA IN THE SETTING OF ESRD. RECOMMENDATION Continue hemodialysis today In house she is TTS Out Pt HD on MWF 3rd shift at 4.30 PM D/w pt about compliance REMOVE FLUID TOLERATED during dialysis. 20 K Epogen yesterday for anemia. EGD soon Thx . Time Spent With Patient Time: Total time managing care of this patient today ____ minutes. Progress Note: Quality Stroke Does the patient have a stroke diagnosis?: No
[2022-09-01] VITALS (8 sets, daily range): BP systolic 130–200; BP diastolic 70–108; PULSE 18–109; RESP 16–91; TEMP 36.8–38.2; O2SAT 93–99
[2022-09-01] MEDS: HYDROmorphone HCl 0.5 MG/0.5 ML SYRINGE 0.25 MG IVPUSH ×5 (01:45→21:45)
[2022-09-01] MEDS: diphenhydrAMINE HCL 50 MG/ML VIAL 25 MG IVPUSH ×3 (03:11→18:21)
[2022-09-01 06:20] LABS: UPreg QC Valid YES; Urine Pregnancy NEGATIVE (NEGATIVE)
--- NOTE | 2022-09-01 07:25 | P.CONAN_ITS ---
[facility] Active Problems Active Problems: All Active Problems (Updated 08/31/22 @ 00:14 by Kane Mueller) Pericarditis (Acute) Headache, migraine (Acute) Unspecified hypertension, condition or complication (Acute) Past Medical History Medical History Abnormal finding on echocardiogram Acute dyspnea Acute on chronic systolic and diastolic heart failure, NYHA class 3 Acute worsening of stage 3 chronic kidney disease MYNOR (acute kidney injury) Anemia Anemia in chronic kidney disease (CKD) Asthma Atypical chest pain Back pain Blind right eye Bone infection Cardiomyopathy Cellulitis Cellulitis and abscess of foot delivery delivered Chest pain CHF (congestive heart failure) (~06/07/22) CKD (chronic kidney disease) CKD (chronic kidney disease) CKD (chronic kidney disease) stage 4, GFR 15-29 ml/min Depression with anxiety Diabetes Diabetic retinopathy DM foot ulcer Elevated troponin ESRD needing dialysis Essential hypertension Fever Generalized edema HFrEF (heart failure with reduced ejection fraction) HTN (hypertension) Hypertension (~06/10/22) Metabolic acidosis Migraine Osteomyelitis PAD (peripheral artery disease) Pleural effusion test positive test positive Sepsis Severe anemia Tachycardia Type 2 diabetes mellitus with hyperglycemia, with long-term current use of insulin Family History Family History Mother Coronary artery disease Myocardial infarction Stroke Diabetes mellitus Father Myocardial infarction Family history of problems with anesthesia: No Surgical History Surgical History History of transmetatarsal amputation of foot S/P transmetatarsal amputation of foot History of Problems with Anesthesia: No Social History Social History Household Members: Family Household Members Other:: Sister, [id number], nephew Housing: House Do you presently have visiting nurse or other home services: No Alcohol intake: never Patient Tobacco Use Status: Never used Tobacco Smoked in Last 30 Days: No e-Cigarette/Vaping Use: Never Used Second Hand Smoke Exposure: No Use of substances other than those prescribed or required for medical reasons: No Currently Displaying Signs/Symptoms of Drug Intoxication Withdrawal: No Are you DNR?: No Advance Directives: Yes Advance Directives on File: Yes Advance Directives Date on File: 03/08/20 Nutrition Risks: No Nutritional Risk Patient : No service: No Current occupational status: unemployed and disabled Gender identity: Female Meds Allergies Allergy/AdvReac Type Severity Reaction Status Date / Time morphine [MORPHINE] Allergy Intermediate Itching Verified 08/21/22 01:18 azithromycin [From Zithromax] Allergy Hives Verified 08/21/22 01:18 gabapentin Allergy Facial Verified 08/21/22 01:18 Swelling tramadol Allergy Facial Verified 08/21/22 01:18 Swelling vancomycin Allergy Hives Verified 08/21/22 01:18 Active Medications: Current Medications Acetaminophen (Acetaminophen 325 Mg Tablet) 650 mg PO Q6H PRN PRN Reason: Pain, Mild (Pain Scale 1-3) Aspirin (Aspirin Enteric Coated 81 Mg Tablet.) 81 mg PO DAILY [facility] Last Admin: 08/31/22 09:56 Dose: 81 mg Atorvastatin Calcium (Atorvastatin Calcium 40 Mg Tablet) 40 mg PO BEDTIME [facility] Last Admin: 08/31/22 20:30 Dose: 40 mg Carvedilol (Carvedilol 12.5 Mg Tablet) 25 mg PO BID [facility]; Protocol Last Admin: 08/31/22 20:30 Dose: 25 mg Clopidogrel Bisulfate (Clopidogrel Bisulfate 75 Mg Tablet) 75 mg PO DAILY [facility] Last Admin: 08/31/22 09:56 Dose: 75 mg Dextrose (Dextrose 50 % 25 Gm/50 Ml Syringe) 25 gm IVPUSH Q15M PRN; Protocol PRN Reason: per Hypoglycemia Standing Ord. Diphenhydramine HCl (Diphenhydramine Hcl 50 Mg/Ml Vial) 25 mg IVPUSH Q6H PRN PRN Reason: Itching Last Admin: 09/01/22 03:11 Dose: 25 mg Docusate Sodium (Docusate Sodium 100 Mg Capsule) 100 mg PO DAILY PRN PRN Reason: Constipation Famotidine (Famotidine/Pf 20 Mg/2 Ml Vial) 20 mg IVPUSH BID [facility] Last Admin: 08/31/22 20:29 Dose: 20 mg Ferrous Sulfate (Ferrous Sulfate 324 Mg Tablet.) 324 mg PO DAILY [facility] Last Admin: 08/31/22 09:56 Dose: 324 mg Glucose (Glucose Gel 15 Gm Gel..Gram.) 15 gm PO Q15M PRN; Protocol PRN Reason: per Hypoglycemia Standing Ord. Heparin Sodium (Porcine) (Heparin Sodium,Porcine 5,000 Unit/Ml Vial) 5,000 unit SUBCUT Q12H [facility] Last Admin: 08/31/22 22:55 Dose: Not Given Hydralazine HCl (Hydralazine Hcl 25 Mg Tablet) 75 mg PO TID [facility]; Protocol Last Admin: 08/31/22 20:30 Dose: 75 mg Hydromorphone HCl (Hydromorphone Hcl 0.5 Mg/0.5 Ml Syringe) 0.25 mg IVPUSH Q4H PRN; Protocol PRN Reason: Pain, Severe (Pain Scale 7-10) Last Admin: 09/01/22 06:39 Dose: 0.25 mg Insulin Human Lispro (Insulin Lispro 100 Unit/Ml 3 Ml Vial) 0 unit SUBCUT QIDACHS [facility]; Protocol Last Admin: 08/31/22 20:30 Dose: 4 unit Isosorbide Mononitrate (Isosorbide Mononitrate 30 Mg Tab.Er.24h) 15 mg PO DAILY [facility]; Protocol Last Admin: 08/31/22 09:54 Dose: 15 mg Lidocaine (Lidocaine 4 % Patch Adh..Patch) 1 patch TRANSDERMA DAILY [facility]; Protocol Last Admin: 08/31/22 10:39 Dose: 1 patch Losartan Potassium (Losartan Potassium 25 Mg Tablet) 25 mg PO DAILY [facility]; Protocol Last Admin: 08/31/22 09:55 Dose: 25 mg Metoclopramide HCl (Metoclopramide Hcl 10 Mg/2 Ml Vial) 5 mg IVPUSH TIDAC [facility] Last Admin: 08/31/22 17:03 Dose: 5 mg Nifedipine (Nifedipine Er 60 Mg Tab.Er.24) 60 mg PO DAILY [facility]; Protocol Last Admin: 08/31/22 09:55 Dose: 60 mg Omeprazole (Omeprazole 40 Mg Capsule.Dr) 40 mg PO DAILY@0630 [facility] Last Admin: 09/01/22 04:43 Dose: Not Given Ondansetron HCl (Ondansetron Hcl 4 Mg/2 Ml Vial) 4 mg IVPUSH Q8H PRN PRN Reason: Nausea and Vomiting Last Admin: 08/31/22 08:15 Dose: 4 mg Ondansetron HCl (Ondansetron Hcl 4 Mg/2 Ml Vial) 4 mg IVPUSH ONCE PRN PRN Reason: Nausea and Vomiting Prednisone (Prednisone 10 Mg Tablet) 5 mg PO DAILY [facility]; Taper Stop: 09/03/22 08:59 Last Admin: 08/31/22 09:56 Dose: 5 mg Sodium Chloride (0.9 % Sodium Chloride Flush 3 Ml Syringe) 3 ml IVFLUSH QSHIFT [facility] Last Admin: 09/01/22 01:55 Dose: Not Given Sucralfate (Sucralfate 1 Gm Tablet) 1 gm PO QIDACHS [facility] Last Admin: 08/31/22 20:31 Dose: Not Given Torsemide (Torsemide 20 Mg Tablet) 40 mg PO BID [facility]; Protocol Last Admin: 08/31/22 20:30 Dose: 40 mg Home Medications Medication Instructions Recorded Confirmed Last Taken Type docusate sodium 100 mg capsule 100 mg PO DAILY PRN constipation 08/13/22 08/25/22 Unknown History oxycodone 5 mg tablet 5 mg PO Q6H PRN severe pain 08/13/22 08/25/22 Unknown History prednisone 10 mg tablet See Taper PO 1XD 08/13/22 08/25/22 08/24/22 History hydralazine 25 mg tablet 75 mg PO TID 08/25/22 08/25/22 08/24/22 History Exam Exam Date and Time: September 01, 2022 0725 Height,Weight and Vital Signs: Height 5 ft 5 in Weight 98.2 kg Last Vital Signs Temp 98.2 F 09/01/22 07:04 Pulse 85 09/01/22 07:04 Resp 18 09/01/22 07:04 BP 142/85 H 09/01/22 07:04 Pulse Ox 99 09/01/22 07:04 O2 Del Method Room Air 09/01/22 07:04 Pertinent Lab Results Pertinent Lab Results: Laboratory Tests 08/25/22 08/25/22 08/25/22 13:44 14:58 14:58 WBC 8.3 RBC 3.41 L Hgb 9.2 L Hct 30.0 L MCV 88.0 MCH 27.0 MCHC 30.7 L RDW 19.9 H Plt Count 211 D MPV 12.8 H Immature Gran % (Auto) 0.8 H Neut % (Auto) 74.7 H Lymph % (Auto) 9.1 L Sharp % (Auto) 13.2 H Eos % (Auto) 2.2 Baso % (Auto) 0.0 Lymph # (Auto) 0.8 L Sharp # (Auto) 1.1 Eos # (Auto) 0.2 Baso # (Auto) 0.0 Abs Immat Gran (auto) 0.07 H Absolute Neuts (auto) 6.2 Absolute Nucleated RBC 0.000 Nucleated RBC % (auto) 0.0 PT 11.8 INR 1.0 APTT 27.3 D Sodium Potassium Chloride Carbon Dioxide Anion Gap BUN Creatinine Estim Creat Clear Calc Estimated GFR POC Glucose 99 Random Glucose Calcium Total Bilirubin AST ALT Alkaline Phosphatase Troponin I High Sens Total Protein Albumin Lipase Urine Test COVID-19 ([facility]) COVID-19 Clin Com 08/25/22 08/25/22 08/25/22 14:58 14:58 15:33 WBC RBC Hgb Hct MCV MCH MCHC RDW Plt Count MPV Immature Gran % (Auto) Neut % (Auto) Lymph % (Auto) Sharp % (Auto) Eos % (Auto) Baso % (Auto) Lymph # (Auto) Sharp # (Auto) Eos # (Auto) Baso # (Auto) Abs Immat Gran (auto) Absolute Neuts (auto) Absolute Nucleated RBC Nucleated RBC % (auto) PT INR APTT Sodium 138 Potassium 5.0 Chloride 110 H Carbon Dioxide 22 Anion Gap 11 L BUN 66 H Creatinine 2.84 H Estim Creat Clear Calc 32.3 Estimated GFR 19 POC Glucose Random Glucose 112 Calcium 7.5 L D Total Bilirubin 1.0 AST 21 ALT 22 Alkaline Phosphatase 68 Troponin I High Sens 62.9 H* D Total Protein 5.6 L Albumin 2.6 L Lipase 53 Urine Test COVID-19 ([facility]) Negative COVID-19 [employer] See Note 08/25/22 08/26/22 08/26/22 18:07 06:44 06:45 WBC 6.6 RBC 3.22 L Hgb 8.6 L Hct 27.8 L MCV 86.3 MCH 26.7 L MCHC 30.9 L RDW 20.0 H Plt Count 167 MPV 12.0 Immature Gran % (Auto) 0.6 H Neut % (Auto) 74.6 H Lymph % (Auto) 11.2 L Sharp % (Auto) 11.9 H Eos % (Auto) 1.5 Baso % (Auto) 0.2 Lymph # (Auto) 0.7 L Sharp # (Auto) 0.8 Eos # (Auto) 0.1 Baso # (Auto) 0.0 Abs Immat Gran (auto) 0.04 H Absolute Neuts (auto) 5.0 Absolute Nucleated RBC 0.000 Nucleated RBC % (auto) 0.0 PT INR APTT Sodium 136 Potassium 5.2 H Chloride 107 Carbon Dioxide 20 L Anion Gap 14 BUN 62 H Creatinine 3.10 H Estim Creat Clear Calc 29.6 Estimated GFR 17 POC Glucose Random Glucose 94 Calcium 8.0 L D Total Bilirubin AST ALT Alkaline Phosphatase Troponin I High Sens 57.3 H* Total Protein Albumin Lipase Urine Test COVID-19 ([facility]O) COVID-19 [employer] 08/26/22 08/26/22 08/26/22 07:31 11:03 16:48 WBC RBC Hgb Hct MCV MCH MCHC RDW Plt Count MPV Immature Gran % (Auto) Neut % (Auto) Lymph % (Auto) Sharp % (Auto) Eos % (Auto) Baso % (Auto) Lymph # (Auto) Sharp # (Auto) Eos # (Auto) Baso # (Auto) Abs Immat Gran (auto) Absolute Neuts (auto) Absolute Nucleated RBC Nucleated RBC % (auto) PT INR APTT Sodium Potassium Chloride Carbon Dioxide Anion Gap BUN Creatinine Estim Creat Clear Calc Estimated GFR POC Glucose 96 170 H 141 H Random Glucose Calcium Total Bilirubin AST ALT Alkaline Phosphatase Troponin I High Sens Total Protein Albumin Lipase Urine Test COVID-19 ([facility]O) COVID-19 [employer] 08/26/22 08/27/22 08/27/22 19:52 06:22 07:37 WBC RBC Hgb Hct MCV MCH MCHC RDW Plt Count MPV Immature Gran % (Auto) Neut % (Auto) Lymph % (Auto) Sharp % (Auto) Eos % (Auto) Baso % (Auto) Lymph # (Auto) Sharp # (Auto) Eos # (Auto) Baso # (Auto) Abs Immat Gran (auto) Absolute Neuts (auto) Absolute Nucleated RBC Nucleated RBC % (auto) PT INR APTT Sodium 135 Potassium 4.2 Chloride 101 Carbon Dioxide 24 Anion Gap 14 BUN 34 H Creatinine 2.50 H Estim Creat Clear Calc 36.7 Estimated GFR 22 POC Glucose 178 H 225 H Random Glucose 209 H Calcium 8.2 L Total Bilirubin AST ALT Alkaline Phosphatase Troponin I High Sens Total Protein Albumin Lipase Urine Test COVID-19 ([facility]O) COVID-19 [employer] 08/27/22 08/27/22 08/27/22 11:10 16:02 19:41 WBC RBC Hgb Hct MCV MCH MCHC RDW Plt Count MPV Immature Gran % (Auto) Neut % (Auto) Lymph % (Auto) Sharp % (Auto) Eos % (Auto) Baso % (Auto) Lymph # (Auto) Sharp # (Auto) Eos # (Auto) Baso # (Auto) Abs Immat Gran (auto) Absolute Neuts (auto) Absolute Nucleated RBC Nucleated RBC % (auto) PT INR APTT Sodium Potassium Chloride Carbon Dioxide Anion Gap BUN Creatinine Estim Creat Clear Calc Estimated GFR POC Glucose 116 H 310 H 314 H Random Glucose Calcium Total Bilirubin AST ALT Alkaline Phosphatase Troponin I High Sens Total Protein Albumin Lipase Urine Test COVID-19 ([facility]O) COVID-19 [employer] 08/28/22 08/28/22 08/28/22 07:51 11:42 16:10 WBC RBC Hgb Hct MCV MCH MCHC RDW Plt Count MPV Immature Gran % (Auto) Neut % (Auto) Lymph % (Auto) Sharp % (Auto) Eos % (Auto) Baso % (Auto) Lymph # (Auto) Sharp # (Auto) Eos # (Auto) Baso # (Auto) Abs Immat Gran (auto) Absolute Neuts (auto) Absolute Nucleated RBC Nucleated RBC % (auto) PT INR APTT Sodium Potassium Chloride Carbon Dioxide Anion Gap BUN Creatinine Estim Creat Clear Calc Estimated GFR POC Glucose 289 H 104 117 H Random Glucose Calcium Total Bilirubin AST ALT Alkaline Phosphatase Troponin I High Sens Total Protein Albumin Lipase Urine Test COVID-19 ([facility]) COVID-19 [employer] Com 08/29/22 08/29/22 08/29/22 07:16 11:16 16:14 WBC RBC Hgb Hct MCV MCH MCHC RDW Plt Count MPV Immature Gran % (Auto) Neut % (Auto) Lymph % (Auto) Sharp % (Auto) Eos % (Auto) Baso % (Auto) Lymph # (Auto) Sharp # (Auto) Eos # (Auto) Baso # (Auto) Abs Immat Gran (auto) Absolute Neuts (auto) Absolute Nucleated RBC Nucleated RBC % (auto) PT INR APTT Sodium Potassium Chloride Carbon Dioxide Anion Gap BUN Creatinine Estim Creat Clear Calc Estimated GFR POC Glucose 120 H 167 H 167 H Random Glucose Calcium Total Bilirubin AST ALT Alkaline Phosphatase Troponin I High Sens Total Protein Albumin Lipase Urine Test COVID-19 ([facility]) COVID-19 Clin Com 08/29/22 08/30/22 08/30/22 20:50 07:13 11:03 WBC RBC Hgb Hct MCV MCH MCHC RDW Plt Count MPV Immature Gran % (Auto) Neut % (Auto) Lymph % (Auto) Sharp % (Auto) Eos % (Auto) Baso % (Auto) Lymph # (Auto) Sharp # (Auto) Eos # (Auto) Baso # (Auto) Abs Immat Gran (auto) Absolute Neuts (auto) Absolute Nucleated RBC Nucleated RBC % (auto) PT INR APTT Sodium Potassium Chloride Carbon Dioxide Anion Gap BUN Creatinine Estim Creat Clear Calc Estimated GFR POC Glucose 241 H 210 H 232 H Random Glucose Calcium Total Bilirubin AST ALT Alkaline Phosphatase Troponin I High Sens Total Protein Albumin Lipase Urine Test COVID-19 (CARO) COVID-19 [employer] 08/30/22 08/30/22 08/31/22 16:24 19:39 07:49 WBC RBC Hgb Hct MCV MCH MCHC RDW Plt Count MPV Immature Gran % (Auto) Neut % (Auto) Lymph % (Auto) Sharp % (Auto) Eos % (Auto) Baso % (Auto) Lymph # (Auto) Sharp # (Auto) Eos # (Auto) Baso # (Auto) Abs Immat Gran (auto) Absolute Neuts (auto) Absolute Nucleated RBC Nucleated RBC % (auto) PT INR APTT Sodium Potassium Chloride Carbon Dioxide Anion Gap BUN Creatinine Estim Creat Clear Calc Estimated GFR POC Glucose 231 H 226 H 187 H Random Glucose Calcium Total Bilirubin AST ALT Alkaline Phosphatase Troponin I High Sens Total Protein Albumin Lipase Urine Test COVID-19 ([facility]) COVID-19 [employer] Com 08/31/22 08/31/22 08/31/22 10:54 16:06 20:19 WBC RBC Hgb Hct MCV MCH MCHC RDW Plt Count MPV Immature Gran % (Auto) Neut % (Auto) Lymph % (Auto) Sharp % (Auto) Eos % (Auto) Baso % (Auto) Lymph # (Auto) Sharp # (Auto) Eos # (Auto) Baso # (Auto) Abs Immat Gran (auto) Absolute Neuts (auto) Absolute Nucleated RBC Nucleated RBC % (auto) PT INR APTT Sodium Potassium Chloride Carbon Dioxide Anion Gap BUN Creatinine Estim Creat Clear Calc Estimated GFR POC Glucose 154 H 166 H 223 H Random Glucose Calcium Total Bilirubin AST ALT Alkaline Phosphatase Troponin I High Sens Total Protein Albumin Lipase Urine Test COVID-19 ([facility]) COVID-19 Clin Com 08/31/22 09/01/22 20:50 06:58 WBC RBC Hgb Hct MCV MCH MCHC RDW Plt Count MPV Immature Gran % (Auto) Neut % (Auto) Lymph % (Auto) Sharp % (Auto) Eos % (Auto) Baso % (Auto) Lymph # (Auto) Sharp # (Auto) Eos # (Auto) Baso # (Auto) Abs Immat Gran (auto) Absolute Neuts (auto) Absolute Nucleated RBC Nucleated RBC % (auto) PT INR APTT Sodium Potassium Chloride Carbon Dioxide Anion Gap BUN Creatinine Estim Creat Clear Calc Estimated GFR POC Glucose 143 H Random Glucose Calcium Total Bilirubin AST ALT Alkaline Phosphatase Troponin I High Sens Total Protein Albumin Lipase Urine Test NEGATIVE COVID-19 ([facility]) COVID-19 Clin Com Assessment and Plan Final Anesthetic Review Family History of Problems with Anesthesia: No History of Problems with Anesthesia: No
--- NOTE | 2022-09-01 07:29 | HO.ANESPROP2 ---
[facility] Active Problems Active Problems: All Active Problems (Updated 08/31/22 @ 00:14 by Kane Mueller) Pericarditis (Acute) Headache, migraine (Acute) Unspecified hypertension, condition or complication (Acute) Past Medical History Medical History Abnormal finding on echocardiogram Acute dyspnea Acute on chronic systolic and diastolic heart failure, NYHA class 3 Acute worsening of stage 3 chronic kidney disease MYNOR (acute kidney injury) Anemia Anemia in chronic kidney disease (CKD) Asthma Atypical chest pain Back pain Blind right eye Bone infection Cardiomyopathy Cellulitis Cellulitis and abscess of foot delivery delivered Chest pain CHF (congestive heart failure) (~06/07/22) CKD (chronic kidney disease) CKD (chronic kidney disease) CKD (chronic kidney disease) stage 4, GFR 15-29 ml/min Depression with anxiety Diabetes Diabetic retinopathy DM foot ulcer Elevated troponin ESRD needing dialysis Essential hypertension Fever Generalized edema HFrEF (heart failure with reduced ejection fraction) HTN (hypertension) Hypertension (~06/10/22) Metabolic acidosis Migraine Osteomyelitis PAD (peripheral artery disease) Pleural effusion test positive test positive Sepsis Severe anemia Tachycardia Type 2 diabetes mellitus with hyperglycemia, with long-term current use of insulin Family History Family History Mother Coronary artery disease Myocardial infarction Stroke Diabetes mellitus Father Myocardial infarction Family history of problems with anesthesia: No Surgical History Surgical History History of transmetatarsal amputation of foot S/P transmetatarsal amputation of foot History of Problems with Anesthesia: No Social History Social History Household Members: Family Household Members Other:: Sister, [id number], nephew Housing: House Do you presently have visiting nurse or other home services: No Alcohol intake: never Patient Tobacco Use Status: Never used Tobacco Smoked in Last 30 Days: No e-Cigarette/Vaping Use: Never Used Second Hand Smoke Exposure: No Use of substances other than those prescribed or required for medical reasons: No Currently Displaying Signs/Symptoms of Drug Intoxication Withdrawal: No Are you DNR?: No Advance Directives: Yes Advance Directives on File: Yes Advance Directives Date on File: 03/08/20 Nutrition Risks: No Nutritional Risk Patient : No service: No Current occupational status: unemployed and disabled Gender identity: Female Meds Allergies Allergy/AdvReac Type Severity Reaction Status Date / Time morphine [MORPHINE] Allergy Intermediate Itching Verified 08/21/22 01:18 azithromycin [From Zithromax] Allergy Hives Verified 08/21/22 01:18 gabapentin Allergy Facial Verified 08/21/22 01:18 Swelling tramadol Allergy Facial Verified 08/21/22 01:18 Swelling vancomycin Allergy Hives Verified 08/21/22 01:18 Active Medications: Current Medications Acetaminophen (Acetaminophen 325 Mg Tablet) 650 mg PO Q6H PRN PRN Reason: Pain, Mild (Pain Scale 1-3) Aspirin (Aspirin Enteric Coated 81 Mg Tablet.) 81 mg PO DAILY [facility] Last Admin: 08/31/22 09:56 Dose: 81 mg Atorvastatin Calcium (Atorvastatin Calcium 40 Mg Tablet) 40 mg PO BEDTIME [facility] Last Admin: 08/31/22 20:30 Dose: 40 mg Carvedilol (Carvedilol 12.5 Mg Tablet) 25 mg PO BID [facility]; Protocol Last Admin: 08/31/22 20:30 Dose: 25 mg Clopidogrel Bisulfate (Clopidogrel Bisulfate 75 Mg Tablet) 75 mg PO DAILY [facility] Last Admin: 08/31/22 09:56 Dose: 75 mg Dextrose (Dextrose 50 % 25 Gm/50 Ml Syringe) 25 gm IVPUSH Q15M PRN; Protocol PRN Reason: per Hypoglycemia Standing Ord. Diphenhydramine HCl (Diphenhydramine Hcl 50 Mg/Ml Vial) 25 mg IVPUSH Q6H PRN PRN Reason: Itching Last Admin: 09/01/22 03:11 Dose: 25 mg Docusate Sodium (Docusate Sodium 100 Mg Capsule) 100 mg PO DAILY PRN PRN Reason: Constipation Famotidine (Famotidine/Pf 20 Mg/2 Ml Vial) 20 mg IVPUSH BID [facility] Last Admin: 08/31/22 20:29 Dose: 20 mg Ferrous Sulfate (Ferrous Sulfate 324 Mg Tablet.) 324 mg PO DAILY [facility] Last Admin: 08/31/22 09:56 Dose: 324 mg Glucose (Glucose Gel 15 Gm Gel..Gram.) 15 gm PO Q15M PRN; Protocol PRN Reason: per Hypoglycemia Standing Ord. Heparin Sodium (Porcine) (Heparin Sodium,Porcine 5,000 Unit/Ml Vial) 5,000 unit SUBCUT Q12H [facility] Last Admin: 08/31/22 22:55 Dose: Not Given Hydralazine HCl (Hydralazine Hcl 25 Mg Tablet) 75 mg PO TID [facility]; Protocol Last Admin: 08/31/22 20:30 Dose: 75 mg Hydromorphone HCl (Hydromorphone Hcl 0.5 Mg/0.5 Ml Syringe) 0.25 mg IVPUSH Q4H PRN; Protocol PRN Reason: Pain, Severe (Pain Scale 7-10) Last Admin: 09/01/22 06:39 Dose: 0.25 mg Insulin Human Lispro (Insulin Lispro 100 Unit/Ml 3 Ml Vial) 0 unit SUBCUT QIDACHS [facility]; Protocol Last Admin: 08/31/22 20:30 Dose: 4 unit Isosorbide Mononitrate (Isosorbide Mononitrate 30 Mg Tab.Er.24h) 15 mg PO DAILY [facility]; Protocol Last Admin: 08/31/22 09:54 Dose: 15 mg Lidocaine (Lidocaine 4 % Patch Adh..Patch) 1 patch TRANSDERMA DAILY [facility]; Protocol Last Admin: 08/31/22 10:39 Dose: 1 patch Losartan Potassium (Losartan Potassium 25 Mg Tablet) 25 mg PO DAILY [facility]; Protocol Last Admin: 08/31/22 09:55 Dose: 25 mg Metoclopramide HCl (Metoclopramide Hcl 10 Mg/2 Ml Vial) 5 mg IVPUSH TIDAC [facility] Last Admin: 08/31/22 17:03 Dose: 5 mg Nifedipine (Nifedipine Er 60 Mg Tab.Er.24) 60 mg PO DAILY [facility]; Protocol Last Admin: 08/31/22 09:55 Dose: 60 mg Omeprazole (Omeprazole 40 Mg Capsule.Dr) 40 mg PO DAILY@0630 [facility] Last Admin: 09/01/22 04:43 Dose: Not Given Ondansetron HCl (Ondansetron Hcl 4 Mg/2 Ml Vial) 4 mg IVPUSH Q8H PRN PRN Reason: Nausea and Vomiting Last Admin: 08/31/22 08:15 Dose: 4 mg Ondansetron HCl (Ondansetron Hcl 4 Mg/2 Ml Vial) 4 mg IVPUSH ONCE PRN PRN Reason: Nausea and Vomiting Prednisone (Prednisone 10 Mg Tablet) 5 mg PO DAILY [facility]; Taper Stop: 09/03/22 08:59 Last Admin: 08/31/22 09:56 Dose: 5 mg Sodium Chloride (0.9 % Sodium Chloride Flush 3 Ml Syringe) 3 ml IVFLUSH QSHIFT [facility] Last Admin: 09/01/22 01:55 Dose: Not Given Sucralfate (Sucralfate 1 Gm Tablet) 1 gm PO QIDACHS [facility] Last Admin: 08/31/22 20:31 Dose: Not Given Torsemide (Torsemide 20 Mg Tablet) 40 mg PO BID [facility]; Protocol Last Admin: 08/31/22 20:30 Dose: 40 mg Home Medications Medication Instructions Recorded Confirmed Last Taken Type docusate sodium 100 mg capsule 100 mg PO DAILY PRN constipation 08/13/22 08/25/22 Unknown History oxycodone 5 mg tablet 5 mg PO Q6H PRN severe pain 08/13/22 08/25/22 Unknown History prednisone 10 mg tablet See Taper PO 1XD 08/13/22 08/25/22 08/24/22 History hydralazine 25 mg tablet 75 mg PO TID 08/25/22 08/25/22 08/24/22 History Exam Exam Date and Time: September 01, 2022 0729 Height,Weight and Vital Signs: Height 5 ft 5 in Weight 98.2 kg Last Vital Signs Temp 98.2 F 09/01/22 07:04 Pulse 85 09/01/22 07:04 Resp 18 09/01/22 07:04 BP 142/85 H 09/01/22 07:04 Pulse Ox 99 09/01/22 07:04 O2 Del Method Room Air 09/01/22 07:04 Pertinent Lab Results Pertinent Lab Results: Laboratory Tests 08/25/22 08/25/22 08/25/22 13:44 14:58 14:58 WBC 8.3 RBC 3.41 L Hgb 9.2 L Hct 30.0 L MCV 88.0 MCH 27.0 MCHC 30.7 L RDW 19.9 H Plt Count 211 D MPV 12.8 H Immature Gran % (Auto) 0.8 H Neut % (Auto) 74.7 H Lymph % (Auto) 9.1 L [place] % (Auto) 13.2 H Eos % (Auto) 2.2 Baso % (Auto) 0.0 Lymph # (Auto) 0.8 L [place] # (Auto) 1.1 Eos # (Auto) 0.2 Baso # (Auto) 0.0 Abs Immat Gran (auto) 0.07 H Absolute Neuts (auto) 6.2 Absolute Nucleated RBC 0.000 Nucleated RBC % (auto) 0.0 PT 11.8 INR 1.0 APTT 27.3 D Sodium Potassium Chloride Carbon Dioxide Anion Gap BUN Creatinine Estim Creat Clear Calc Estimated GFR POC Glucose 99 Random Glucose Calcium Total Bilirubin AST ALT Alkaline Phosphatase Troponin I High Sens Total Protein Albumin Lipase Urine Test COVID-19 ([facility]O) COVID-19 Clin Com 08/25/22 08/25/22 08/25/22 14:58 14:58 15:33 WBC RBC Hgb Hct MCV MCH MCHC RDW Plt Count MPV Immature Gran % (Auto) Neut % (Auto) Lymph % (Auto) [place] % (Auto) Eos % (Auto) Baso % (Auto) Lymph # (Auto) [place] # (Auto) Eos # (Auto) Baso # (Auto) Abs Immat Gran (auto) Absolute Neuts (auto) Absolute Nucleated RBC Nucleated RBC % (auto) PT INR APTT Sodium 138 Potassium 5.0 Chloride 110 H Carbon Dioxide 22 Anion Gap 11 L BUN 66 H Creatinine 2.84 H Estim Creat Clear Calc 32.3 Estimated GFR 19 POC Glucose Random Glucose 112 Calcium 7.5 L D Total Bilirubin 1.0 AST 21 ALT 22 Alkaline Phosphatase 68 Troponin I High Sens 62.9 H* D Total Protein 5.6 L Albumin 2.6 L Lipase 53 Urine Test COVID-19 (CARO) Negative COVID-19 [employer] See Note 08/25/22 08/26/22 08/26/22 18:07 06:44 06:45 WBC 6.6 RBC 3.22 L Hgb 8.6 L Hct 27.8 L MCV 86.3 MCH 26.7 L MCHC 30.9 L RDW 20.0 H Plt Count 167 MPV 12.0 Immature Gran % (Auto) 0.6 H Neut % (Auto) 74.6 H Lymph % (Auto) 11.2 L [place] % (Auto) 11.9 H Eos % (Auto) 1.5 Baso % (Auto) 0.2 Lymph # (Auto) 0.7 L [place] # (Auto) 0.8 Eos # (Auto) 0.1 Baso # (Auto) 0.0 Abs Immat Gran (auto) 0.04 H Absolute Neuts (auto) 5.0 Absolute Nucleated RBC 0.000 Nucleated RBC % (auto) 0.0 PT INR APTT Sodium 136 Potassium 5.2 H Chloride 107 Carbon Dioxide 20 L Anion Gap 14 BUN 62 H Creatinine 3.10 H Estim Creat Clear Calc 29.6 Estimated GFR 17 POC Glucose Random Glucose 94 Calcium 8.0 L D Total Bilirubin AST ALT Alkaline Phosphatase Troponin I High Sens 57.3 H* Total Protein Albumin Lipase Urine Test COVID-19 (CRAO) COVID-19 [employer] 08/26/22 08/26/22 08/26/22 07:31 11:03 16:48 WBC RBC Hgb Hct MCV MCH MCHC RDW Plt Count MPV Immature Gran % (Auto) Neut % (Auto) Lymph % (Auto) [place] % (Auto) Eos % (Auto) Baso % (Auto) Lymph # (Auto) [place] # (Auto) Eos # (Auto) Baso # (Auto) Abs Immat Gran (auto) Absolute Neuts (auto) Absolute Nucleated RBC Nucleated RBC % (auto) PT INR APTT Sodium Potassium Chloride Carbon Dioxide Anion Gap BUN Creatinine Estim Creat Clear Calc Estimated GFR POC Glucose 96 170 H 141 H Random Glucose Calcium Total Bilirubin AST ALT Alkaline Phosphatase Troponin I High Sens Total Protein Albumin Lipase Urine Test COVID-19 (CARO) COVID-19 [employer] 08/26/22 08/27/22 08/27/22 19:52 06:22 07:37 WBC RBC Hgb Hct MCV MCH MCHC RDW Plt Count MPV Immature Gran % (Auto) Neut % (Auto) Lymph % (Auto) [place] % (Auto) Eos % (Auto) Baso % (Auto) Lymph # (Auto) [place] # (Auto) Eos # (Auto) Baso # (Auto) Abs Immat Gran (auto) Absolute Neuts (auto) Absolute Nucleated RBC Nucleated RBC % (auto) PT INR APTT Sodium 135 Potassium 4.2 Chloride 101 Carbon Dioxide 24 Anion Gap 14 BUN 34 H Creatinine 2.50 H Estim Creat Clear Calc 36.7 Estimated GFR 22 POC Glucose 178 H 225 H Random Glucose 209 H Calcium 8.2 L Total Bilirubin AST ALT Alkaline Phosphatase Troponin I High Sens Total Protein Albumin Lipase Urine Test COVID-19 (CARO) COVID-19 [employer] 08/27/22 08/27/22 08/27/22 11:10 16:02 19:41 WBC RBC Hgb Hct MCV MCH MCHC RDW Plt Count MPV Immature Gran % (Auto) Neut % (Auto) Lymph % (Auto) [place] % (Auto) Eos % (Auto) Baso % (Auto) Lymph # (Auto) [place] # (Auto) Eos # (Auto) Baso # (Auto) Abs Immat Gran (auto) Absolute Neuts (auto) Absolute Nucleated RBC Nucleated RBC % (auto) PT INR APTT Sodium Potassium Chloride Carbon Dioxide Anion Gap BUN Creatinine Estim Creat Clear Calc Estimated GFR POC Glucose 116 H 310 H 314 H Random Glucose Calcium Total Bilirubin AST ALT Alkaline Phosphatase Troponin I High Sens Total Protein Albumin Lipase Urine Test COVID-19 (CARO) COVID-19 [employer] 08/28/22 08/28/22 08/28/22 07:51 11:42 16:10 WBC RBC Hgb Hct MCV MCH MCHC RDW Plt Count MPV Immature Gran % (Auto) Neut % (Auto) Lymph % (Auto) [place] % (Auto) Eos % (Auto) Baso % (Auto) Lymph # (Auto) [place] # (Auto) Eos # (Auto) Baso # (Auto) Abs Immat Gran (auto) Absolute Neuts (auto) Absolute Nucleated RBC Nucleated RBC % (auto) PT INR APTT Sodium Potassium Chloride Carbon Dioxide Anion Gap BUN Creatinine Estim Creat Clear Calc Estimated GFR POC Glucose 289 H 104 117 H Random Glucose Calcium Total Bilirubin AST ALT Alkaline Phosphatase Troponin I High Sens Total Protein Albumin Lipase Urine Test COVID-19 ([facility]) COVID-19 [employer] 08/29/22 08/29/22 08/29/22 07:16 11:16 16:14 WBC RBC Hgb Hct MCV MCH MCHC RDW Plt Count MPV Immature Gran % (Auto) Neut % (Auto) Lymph % (Auto) [place] % (Auto) Eos % (Auto) Baso % (Auto) Lymph # (Auto) [place] # (Auto) Eos # (Auto) Baso # (Auto) Abs Immat Gran (auto) Absolute Neuts (auto) Absolute Nucleated RBC Nucleated RBC % (auto) PT INR APTT Sodium Potassium Chloride Carbon Dioxide Anion Gap BUN Creatinine Estim Creat Clear Calc Estimated GFR POC Glucose 120 H 167 H 167 H Random Glucose Calcium Total Bilirubin AST ALT Alkaline Phosphatase Troponin I High Sens Total Protein Albumin Lipase Urine Test COVID-19 (CARO) COVID-19 Clin Com 08/29/22 08/30/22 08/30/22 20:50 07:13 11:03 WBC RBC Hgb Hct MCV MCH MCHC RDW Plt Count MPV Immature Gran % (Auto) Neut % (Auto) Lymph % (Auto) [place] % (Auto) Eos % (Auto) Baso % (Auto) Lymph # (Auto) [place] # (Auto) Eos # (Auto) Baso # (Auto) Abs Immat Gran (auto) Absolute Neuts (auto) Absolute Nucleated RBC Nucleated RBC % (auto) PT INR APTT Sodium Potassium Chloride Carbon Dioxide Anion Gap BUN Creatinine Estim Creat Clear Calc Estimated GFR POC Glucose 241 H 210 H 232 H Random Glucose Calcium Total Bilirubin AST ALT Alkaline Phosphatase Troponin I High Sens Total Protein Albumin Lipase Urine Test COVID-19 (CARO) COVID-19 [employer] 08/30/22 08/30/22 08/31/22 16:24 19:39 07:49 WBC RBC Hgb Hct MCV MCH MCHC RDW Plt Count MPV Immature Gran % (Auto) Neut % (Auto) Lymph % (Auto) [place] % (Auto) Eos % (Auto) Baso % (Auto) Lymph # (Auto) [place] # (Auto) Eos # (Auto) Baso # (Auto) Abs Immat Gran (auto) Absolute Neuts (auto) Absolute Nucleated RBC Nucleated RBC % (auto) PT INR APTT Sodium Potassium Chloride Carbon Dioxide Anion Gap BUN Creatinine Estim Creat Clear Calc Estimated GFR POC Glucose 231 H 226 H 187 H Random Glucose Calcium Total Bilirubin AST ALT Alkaline Phosphatase Troponin I High Sens Total Protein Albumin Lipase Urine Test COVID-19 (CARO) COVID-19 [employer] [facility] 08/31/22 08/31/22 08/31/22 10:54 16:06 20:19 WBC RBC Hgb Hct MCV MCH MCHC RDW Plt Count MPV Immature Gran % (Auto) Neut % (Auto) Lymph % (Auto) [place] % (Auto) Eos % (Auto) Baso % (Auto) Lymph # (Auto) [place] # (Auto) Eos # (Auto) Baso # (Auto) Abs Immat Gran (auto) Absolute Neuts (auto) Absolute Nucleated RBC Nucleated RBC % (auto) PT INR APTT Sodium Potassium Chloride Carbon Dioxide Anion Gap BUN Creatinine Estim Creat Clear Calc Estimated GFR POC Glucose 154 H 166 H 223 H Random Glucose Calcium Total Bilirubin AST ALT Alkaline Phosphatase Troponin I High Sens Total Protein Albumin Lipase Urine Test COVID-19 (CARO) COVID-19 Clin Com 08/31/22 09/01/22 20:50 06:58 WBC RBC Hgb Hct MCV MCH MCHC RDW Plt Count MPV Immature Gran % (Auto) Neut % (Auto) Lymph % (Auto) [place] % (Auto) Eos % (Auto) Baso % (Auto) Lymph # (Auto) [place] # (Auto) Eos # (Auto) Baso # (Auto) Abs Immat Gran (auto) Absolute Neuts (auto) Absolute Nucleated RBC Nucleated RBC % (auto) PT INR APTT Sodium Potassium Chloride Carbon Dioxide Anion Gap BUN Creatinine Estim Creat Clear Calc Estimated GFR POC Glucose 143 H Random Glucose Calcium Total Bilirubin AST ALT Alkaline Phosphatase Troponin I High Sens Total Protein Albumin Lipase Urine Test NEGATIVE COVID-19 (CARO) COVID-19 Clin Com Airway Mallampati Class: III TM Dist: >3cm Neck ROM: Full Loose/Missing/Broken Teeth: No (rrr) Heart: rrrr Lungs: clear Assessment and Plan Final Anesthetic Review Family History of Problems with Anesthesia: No History of Problems with Anesthesia: No NPO: Yes ASA Class: IV and Emergency Final Preanesthetic Review: No Changes in Pt Med Stat, Meds/Allgs Chart Reviewed and Anes Risks/Benef Reviewed Patient Risk: High Procedure Risk: Low Anesthetic Plan Anesthetic Plan: MAC: Disposition: Standard PACU
--- NOTE | 2022-09-01 07:39 | MHC.SHP ---
Pre-Procedural Eval Section A Date of Service: 09/01/22 The patient is an INPATIENT: Yes The History & Physical has been completed within 30 days and I have reviewed it.: Yes Section B Chief Complaint: intractable nausea and vomiting, chest pain Allergies: Allergies Allergy/AdvReac Type Severity Reaction Status Date / Time morphine [MORPHINE] Allergy Intermediate Itching Verified 08/21/22 01:18 azithromycin [From Zithromax] Allergy Hives Verified 08/21/22 01:18 gabapentin Allergy Facial Verified 08/21/22 01:18 Swelling tramadol Allergy Facial Verified 08/21/22 01:18 Swelling vancomycin Allergy Hives Verified 08/21/22 01:18 Plan Diagnosis/Plan: Unchanged I have reviewed the history and physical and performed a pertinent physical examination on my patient. No changes have occurred unless specified. Time Spent With Patient Time: Total time managing care of this patient today ____ minutes.
--- NOTE | 2022-09-01 07:40 | W.PM.OPN ---
Operative Note Operative Note Date of Service: 09/01/22 Narrative: Procedure Description: EGD Indication: nausea,vomiting Anesthesia: MAC FLEXIBLE TRANSORAL UPPER GASTROINTESTINAL ENDOSCOPY UPPER ENDOSCOPY Consent: Indications for the procedure and potential complications of bleeding, perforation, reaction to medications and missed diagnosis were discussed with the patient and informed consent was obtained. Instrument: Olympus GIF H 190 J mid size upper endoscope Monitoring: Vital signs and clinical assessment, continuous EKG monitoring, Pulse oximetry, Carbon Dioxide monitoring and blood pressure monitoring were done throughout the procedure. Procedure: The patient was placed in the left lateral decubitis position and pre-procedure medications were administered and a bite block was placed. The endoscope was inserted into the mouth and advanced under direct vision to the third part of duodenum. A careful inspection was made as the upper endoscope was withdrawn including a retroflexed examination of the proximal stomach; Findings and interventions are described below. Findings: Larynx:normal Esophagus: GE junction at 43 cm, diaphragm hiatus at 43 cm, irregular Z line with possible barretts Stomach: Patchy gastric erythema. Biopsies were obtained. Grade 2 flap valve on retroflexed examination of the cardia. Large amount of food in the stomach. No ulcer or mass seen Duodenum: Unable to enter due to food blocking pylorus, Intervention: Biopsies as noted above Impression/Findings: gastroparesis posisble barretts PLAN: Iv erythromycin 250 mg q8h for 48 hr with reglan and relistor, watch QTc, optimize lytes repeat EGD in near future if H pylori pos then treat cont with PPI
--- NOTE | 2022-09-01 07:43 | PC.NURSE ---
new IV inserted by suma caruso rn.
[2022-09-01] MEDS: Famotidine/PF 20 MG/2 ML VIAL IVPUSH ×2 (09:27→21:43)
[2022-09-01] MEDS: 0.9 % Sodium Chloride Flush 3 ML SYRINGE IVFLUSH ×3 (09:27→21:43)
--- NOTE | 2022-09-01 09:35 | MHC.CLN ---
NUTRITION CURRENT DIETS CLEAR LIQUIDS, S/P ENDOSCOPY. WHEN ABLE, RECOMMEND RESUME DIET PER DIABETIC AND ERSD WITH HEMODIALYSIS PARAMETERS: DIABETIC 2000 KCALS, 2 GRAM SODIUM, LOW POTASSIUM; LOW PHOSPHORUS. INTAKE AT MEALS USUALLY VERY GOOD WITH MANY MEALS 100%.
--- NOTE | 2022-09-01 10:21 | HO.PM.IMPN ---
Subjective Subjective Date of Service: 09/01/22 Interval History: EGD done today wants to eat no abd pain Review of Systems Review of Systems: Yes all other systems are reviewed and are negative Physical Exam Vital Signs: Vital Signs: Last Vital Signs Temp 99.8 F 09/01/22 09:00 Pulse 18 L 09/01/22 09:00 Resp 91 H 09/01/22 09:00 BP 153/74 H 09/01/22 09:00 Pulse Ox 97 09/01/22 09:00 O2 Del Method Room Air 09/01/22 09:00 BMI result Body Mass Index 36.0 Gen: in no acute distress HEENT: sclera anicteric, moist mucus membranes, blind Neck: supple Lungs: clear to auscultation bilaterally Heart: regular rate and rhythm, no murmurs Abd: soft, epigastric tenderness, no rebound Ext: trace leg edema bilaterally Skin: warm/well-perfused Neuro: alert and oriented x3, no focal findings Psych: appropriate affect Objective Data Active Medications Acetaminophen (Acetaminophen 325 Mg Tablet) 650 mg PO Q6H PRN PRN Reason: Pain, Mild (Pain Scale 1-3) Aspirin (Aspirin Enteric Coated 81 Mg Tablet.) 81 mg PO DAILY [facility] Last Admin: 09/01/22 09:50 Dose: Not Given Documented By: NEEMA Non-Admin Reason: Patient Refused Atorvastatin Calcium (Atorvastatin Calcium 40 Mg Tablet) 40 mg PO BEDTIME [facility] Last Admin: 08/31/22 20:30 Dose: 40 mg Documented By: MARKEL Carvedilol (Carvedilol 12.5 Mg Tablet) 25 mg PO BID [facility]; Protocol Last Admin: 09/01/22 09:50 Dose: Not Given Documented By: NEEMA Non-Admin Reason: Patient Refused Clopidogrel Bisulfate (Clopidogrel Bisulfate 75 Mg Tablet) 75 mg PO DAILY [facility] Last Admin: 09/01/22 09:50 Dose: Not Given Documented By: NEEMA Non-Admin Reason: Patient Refused Dextrose (Dextrose 50 % 25 Gm/50 Ml Syringe) 25 gm IVPUSH Q15M PRN; Protocol PRN Reason: per Hypoglycemia Standing Ord. Diphenhydramine HCl (Diphenhydramine Hcl 50 Mg/Ml Vial) 25 mg IVPUSH Q6H PRN PRN Reason: Itching Last Admin: 09/01/22 09:31 Dose: 25 mg Documented By: NEEMA Docusate Sodium (Docusate Sodium 100 Mg Capsule) 100 mg PO DAILY PRN PRN Reason: Constipation Famotidine (Famotidine/Pf 20 Mg/2 Ml Vial) 20 mg IVPUSH BID [facility] Last Admin: 09/01/22 09:27 Dose: 20 mg Documented By: NEEMA Ferrous Sulfate (Ferrous Sulfate 324 Mg Tablet.Dr) 324 mg PO DAILY [facility] Last Admin: 09/01/22 09:50 Dose: Not Given Documented By: NEEMA Non-Admin Reason: Patient Refused Glucose (Glucose Gel 15 Gm Gel..Gram.) 15 gm PO Q15M PRN; Protocol PRN Reason: per Hypoglycemia Standing Ord. Heparin Sodium (Porcine) (Heparin Sodium,Porcine 5,000 Unit/Ml Vial) 5,000 unit SUBCUT Q12H [facility] Last Admin: 08/31/22 22:55 Dose: Not Given Documented By: MARKEL Non-Admin Reason: Patient Refused Hydralazine HCl (Hydralazine Hcl 25 Mg Tablet) 75 mg PO TID [facility]; Protocol Last Admin: 09/01/22 09:50 Dose: Not Given Documented By: NEEMA Non-Admin Reason: Patient Refused Hydromorphone HCl (Hydromorphone Hcl 0.5 Mg/0.5 Ml Syringe) 0.25 mg IVPUSH Q4H PRN; Protocol PRN Reason: Pain, Severe (Pain Scale 7-10) Last Admin: 09/01/22 06:39 Dose: 0.25 mg Documented By: MARKEL Lactated Ringer's (Lr) 500 mls @ 20 mls/hr IVCONT .Q24H [facility] Last Admin: 09/01/22 09:18 Dose: Not Given Documented By: NEEMA Non-Admin Reason: ORDER FROM EGD Erythromycin Lactobionate 250 (mg/ Sodium Chloride) 100 mls @ 100 mls/hr IV Q6H [facility] Stop: 09/02/22 16:59 Insulin Human Lispro (Insulin Lispro 100 Unit/Ml 3 Ml Vial) 0 unit SUBCUT QIDACHS [facility]; Protocol Last Admin: 09/01/22 09:15 Dose: Not Given Documented By: NEEMA Non-Admin Reason: No Insulin Coverage Isosorbide Mononitrate (Isosorbide Mononitrate 30 Mg Tab.Er.24h) 15 mg PO DAILY [facility]; Protocol Last Admin: 09/01/22 09:50 Dose: Not Given Documented By: NEEMA Non-Admin Reason: Patient Refused Lidocaine (Lidocaine 4 % Patch Adh..Patch) 1 patch TRANSDERMA DAILY [facility]; Protocol Last Admin: 09/01/22 09:51 Dose: Not Given Documented By: NEEMA Non-Admin Reason: Patient Refused Losartan Potassium (Losartan Potassium 25 Mg Tablet) 25 mg PO DAILY [facility]; Protocol Last Admin: 09/01/22 09:51 Dose: Not Given Documented By: NEEMA Non-Admin Reason: Patient Refused Metoclopramide HCl (Metoclopramide Hcl 5 Mg Tablet) 5 mg PO TIDAC [facility] Nifedipine (Nifedipine Er 60 Mg Tab.Er.24) 60 mg PO DAILY [facility]; Protocol Last Admin: 09/01/22 09:51 Dose: Not Given Documented By: NEEMA Non-Admin Reason: Patient Refused Omeprazole (Omeprazole 40 Mg Capsule.Dr) 40 mg PO DAILY@0630 [facility] Last Admin: 09/01/22 04:43 Dose: Not Given Documented By: MARKEL Non-Admin Reason: NPO Ondansetron HCl (Ondansetron Hcl 4 Mg/2 Ml Vial) 4 mg IVPUSH Q8H PRN PRN Reason: Nausea and Vomiting Last Admin: 08/31/22 08:15 Dose: 4 mg Documented By: HAIM Ondansetron HCl (Ondansetron Hcl 4 Mg/2 Ml Vial) 4 mg IVPUSH ONCE PRN PRN Reason: Nausea and Vomiting Prednisone (Prednisone 10 Mg Tablet) 5 mg PO DAILY [facility]; Taper Stop: 09/03/22 08:59 Last Admin: 09/01/22 09:51 Dose: Not Given Documented By: NEEMA Non-Admin Reason: Patient Refused Sodium Chloride (0.9 % Sodium Chloride Flush 3 Ml Syringe) 3 ml IVFLUSH QSHIFT [facility] Last Admin: 09/01/22 09:27 Dose: 3 ml Documented By: NEEMA Sucralfate (Sucralfate 1 Gm Tablet) 1 gm PO QIDACHS [facility] Last Admin: 09/01/22 09:50 Dose: Not Given Documented By: NEEMA Non-Admin Reason: Patient Refused Torsemide (Torsemide 20 Mg Tablet) 40 mg PO BID [facility]; Protocol Last Admin: 09/01/22 09:51 Dose: Not Given Documented By: NEEMA Non-Admin Reason: Patient Refused Labs 08/26/22 06:44 08/27/22 06:22 Labs: Laboratory Results - last 24 hr 08/31/22 08/31/22 08/31/22 10:54 16:06 20:19 POC Glucose 154 H 166 H 223 H Urine Test 08/31/22 09/01/22 20:50 06:58 POC Glucose 143 H Urine Test NEGATIVE Assessment and Plan (1) Hypertensive urgency: Status: Resolved (2) Intractable nausea and vomiting: Status: Resolved Plan d#6 31yo F with HTN, chronic HFrEF, DM2 with retinopathy, mood disorder, PAD s/p TMTA, ERSD recently started on HD during recent hospitalization for NSTEMI, recent hospitalization for hyperglycemia, admitted for intractable N/V # N/V due to gastroparesis - EGD 09/01/[address] Tapia: Findings: Larynx:normal Esophagus: GE junction at 43? cm, diaphragm hiatus at 43 cm, irregular Z line with possible barretts Stomach: Patchy gastric erythema. Biopsies were obtained. Grade 2 flap valve on retroflexed examination of the cardia. Large amount of food in the stomach. No ulcer or mass seen Duodenum: Unable to enter due to food blocking pylorus - continue PPI + sucralfate - continue ondansetron - continue metoclopramide, change back to PO - continue IV diphemhydramine - add IV erythromycin x 48h, check QTc interval - small meals, low-fat + low-fiber, nutrition consult - f/u biopsy results, treat H pylori if present # atypical chest pain, resolved - troponins flat, EKG without evidence of acute ischemia - CXR negative - Imdur 15 mg daily added - negative bilateral venous duplex # ESRD on HD - continue HD as scheduled TTS; Nephrology consulted # insulin-dependent type 2 diabetes - muna-dose lispro # CAD with recent NSTEMI 08/14/22 - no anginal chest pain currently. EKG nonischemic, troponin flat - continue dual antiplatelet therapy, carvedilol, atorvastatin # hypertensive urgency - better controlled after HD - continue home meds: carvedilol, hyralazine, losartan, Imdur, nifedipine, torsemide # mood disorder - continue home meds # PAD - continue DAPT # chronic HFrEF - no acute exacerbation - continue torsemide + antihypertensives # anemia of ESRD - continue Fe, monitor H+H # VTE ppx: UFH # dispo: eventual home In my clinical judgment, the patient requires continued inpatient hospitalization for the following reasons: PO intolerance, IV erythro Time Spent With Patient Time: Total time managing care of this patient today _40___ minutes. Quality Stroke Does the patient have a stroke diagnosis?: No VTE Prior VTE?: No VTE Risk Level:: Medical - moderate - high VTE Device Contraindication: Treatment Not Indicated VTE Drug Contraindication: N/A - Med Ordered
[2022-09-01 11:34] LABS: Glucose, Whole Blood 133 mg/dL (60-115)
--- NOTE | 2022-09-01 13:29 | MHC.CM.PN ---
EMR REVIEWED AND PER MD ROUNDS, PT HAS NOT BEEN MEDICALLY CLEARED FOR DC (GASTROPARESIS,PO INTOLERANCE, IV ABT) CM WILL CONTINUE TO FOLLOW FOR CHANGE IN DC NEEDS/PLAN.
--- NOTE | 2022-09-01 13:43 | MHC.CLN ---
F/U CONSULT FOR GASTROPARESIS DIET. DIET=DIABETIC 2000 KCALS, LOW FAT, LOW FIBER. PATIENT RESTING AT TIME OF VISIT. ASKED IF OK IF THAT I LEAVE INFORMATION FOR HER. PROVIDED INFO ON GASTROPARESIS DIET.
[2022-09-01] MEDS: hydrALAZINE HCl 25 MG TABLET 75 MG PO ×2 (15:24→21:39)
[2022-09-01] MEDS: Insulin Lispro 100 UNIT/ML 3 ML VIAL SUBCUT (17:25)
[2022-09-01] MEDS: Sucralfate 1 GM TABLET PO ×2 (17:25→21:40)
[2022-09-01] MEDS: Torsemide 20 MG TABLET 40 MG PO (21:39)
[2022-09-01] MEDS: carvediloL 12.5 MG TABLET 25 MG PO (21:39)
[2022-09-01] MEDS: Atorvastatin Calcium 40 MG TABLET PO (21:39)
--- NOTE | 2022-09-01 23:38 | PM.PNNEP ---
Subjective Subjective Date of Service: 09/01/22 Interval history: EGD done today no abd pain Physical Exam Vital Signs: Vital Signs: Last Vital Signs Temp 99.4 F 09/01/22 21:33 Pulse 109 H 09/01/22 21:33 Resp 18 09/01/22 21:33 BP 200/108 H 09/01/22 21:33 Pulse Ox 98 09/01/22 21:33 O2 Del Method Room Air 09/01/22 21:33 BMI result Body Mass Index 36.0 Comfortable Neck is supple Lung: Air entry equal Heart: S1,S2, normal. No rub Abd: Soft. BS + NS : Alert.No asterexis Ext: 1+ edema Const: Other: Constitutional : Awake, interactive, restless Neck : Normal inspection, Supple Cardiovascular : RRR, elevated? JVP, trace lower extremity edema Respiratory : fair bilateral air entry,? basal fine crackles, wheezes or rhonchi Gastrointestinal:? soft, lax, Normal bowel sounds, Non tender Skin : Warm, Dry. PErmacath place clean with no erthyma Neurological : Alert & oriented x3, No focal deficit Objective Data Labs 08/26/22 06:44 08/27/22 06:22 Labs: Laboratory Results - last 24 hr 08/31/22 09/01/22 09/01/22 20:50 06:58 11:29 POC Glucose 143 H 133 H Urine Test NEGATIVE 09/01/22 09/01/22 16:02 20:18 POC Glucose 156 H 94 Urine Test Procedures Date of Service Date of Service: 09/01/22 Assessment & Plan Assessment and plan (1) Hypertensive urgency: Status: Resolved (2) End-stage renal disease (ESRD): Status: Resolved Plan YOUNG WOMAN WITH LONGSTANDING DIABETES MELLITUS AND UNCONTROLLED HYPERTENSION WITH NEWLY DIAGNOSED ESRD. UNCONTROLLED HYPERTENSION IS PRIMARILY DUE TO FLUID OVERLOAD. SHE IS ALSO NONCOMPLIANT WITH HER MEDICATIONS. ANEMIA DUE TO UNDERLYING CHRONIC KIDNEY DISEASE. MILD HYPERKALEMIA IN THE SETTING OF ESRD. RECOMMENDATION Continue hemodialysis Per schedule In house she is TTS Out Pt HD on MWF 3rd shift at 4.30 PM D/w pt about compliance Had EGD REMOVE FLUID TOLERATED during dialysis. 20 K Epogen yesterday for anemia. Thx . Time Spent With Patient Time: Total time managing care of this patient today ____ minutes. Progress Note: Quality Stroke Does the patient have a stroke diagnosis?: No
[2022-09-02] MEDS: diphenhydrAMINE HCL 50 MG/ML VIAL 25 MG IVPUSH ×3 (00:26→17:35)
[2022-09-02 01:15] VITALS: TEMP 37.6
[2022-09-02] MEDS: HYDROmorphone HCl 0.5 MG/0.5 ML SYRINGE 0.25 MG IVPUSH ×4 (01:45→17:35)
[2022-09-02 03:48] VITALS: BP 130/80; PULSE 93; RESP 18; TEMP 36.5; O2SAT 98
[2022-09-02 07:22] VITALS: O2SAT 98
[2022-09-02 07:31] VITALS: BP 172/82; PULSE 88; RESP 18; TEMP 37.4; O2SAT 98
[2022-09-02] MEDS: predniSONE 10 MG TABLET 5 MG PO (07:37)
[2022-09-02] MEDS: carvediloL 12.5 MG TABLET 25 MG PO ×2 (07:37→22:17)
[2022-09-02] MEDS: Omeprazole 40 MG CAPSULE.DR PO (07:38)
[2022-09-02] MEDS: Losartan Potassium 25 MG TABLET PO (07:38)
[2022-09-02] MEDS: Isosorbide Mononitrate 30 MG TAB.ER.24H 15 MG PO (07:38)
[2022-09-02] MEDS: Aspirin Enteric Coated 81 MG TABLET.DR PO (07:39)
[2022-09-02] MEDS: Sucralfate 1 GM TABLET PO ×3 (07:39→17:37)
[2022-09-02] MEDS: Famotidine/PF 20 MG/2 ML VIAL IVPUSH ×2 (07:40→22:14)
--- NOTE | 2022-09-02 09:23 | HO.PM.IMPN ---
Subjective Subjective Date of Service: 09/02/22 Interval History: unable to tolerate lunch or dinner c/o nausea, postprandial pain Review of Systems Review of Systems: Yes all other systems are reviewed and are negative Physical Exam Vital Signs: Vital Signs: Last Vital Signs Temp 99.3 F 09/02/22 07:31 Pulse 88 09/02/22 07:31 Resp 18 09/02/22 07:31 BP 172/82 H 09/02/22 07:31 Pulse Ox 98 09/02/22 07:31 O2 Del Method Room Air 09/02/22 07:31 BMI result Body Mass Index 36.0 Gen: in no acute distress HEENT: sclera anicteric, moist mucus membranes, blind Neck: supple Lungs: clear to auscultation bilaterally Heart: regular rate and rhythm, no murmurs Abd: soft, epigastric tenderness, no rebound Ext: trace leg edema bilaterally Skin: warm/well-perfused Neuro: alert and oriented x3, no focal findings Psych: appropriate affect Objective Data Active Medications Acetaminophen (Acetaminophen 325 Mg Tablet) 650 mg PO Q6H PRN PRN Reason: Pain, Mild (Pain Scale 1-3) Aspirin (Aspirin Enteric Coated 81 Mg Tablet.) 81 mg PO DAILY [facility] Last Admin: 09/02/22 07:39 Dose: 81 mg Documented By: KERRIE Atorvastatin Calcium (Atorvastatin Calcium 40 Mg Tablet) 40 mg PO BEDTIME [facility] Last Admin: 09/01/22 21:39 Dose: 40 mg Documented By: TIFF Carvedilol (Carvedilol 12.5 Mg Tablet) 25 mg PO BID [facility]; Protocol Last Admin: 09/02/22 07:37 Dose: 25 mg Documented By: KERRIE Clopidogrel Bisulfate (Clopidogrel Bisulfate 75 Mg Tablet) 75 mg PO DAILY [facility] Last Admin: 09/02/22 08:59 Dose: Not Given Documented By: KERRIE Non-Admin Reason: Patient Refused Dextrose (Dextrose 50 % 25 Gm/50 Ml Syringe) 25 gm IVPUSH Q15M PRN; Protocol PRN Reason: per Hypoglycemia Standing Ord. Diphenhydramine HCl (Diphenhydramine Hcl 50 Mg/Ml Vial) 25 mg IVPUSH Q6H PRN PRN Reason: Itching Last Admin: 09/02/22 07:40 Dose: 25 mg Documented By: KERRIE Docusate Sodium (Docusate Sodium 100 Mg Capsule) 100 mg PO DAILY PRN PRN Reason: Constipation Famotidine (Famotidine/Pf 20 Mg/2 Ml Vial) 20 mg IVPUSH BID [facility] Last Admin: 09/02/22 07:40 Dose: 20 mg Documented By: KERRIE Ferrous Sulfate (Ferrous Sulfate 324 Mg Tablet.Dr) 324 mg PO DAILY [facility] Last Admin: 09/02/22 07:50 Dose: Not Given Documented By: KERRIE Non-Admin Reason: Patient Refused Glucose (Glucose Gel 15 Gm Gel..Gram.) 15 gm PO Q15M PRN; Protocol PRN Reason: per Hypoglycemia Standing Ord. Heparin Sodium (Porcine) (Heparin Sodium,Porcine 5,000 Unit/Ml Vial) 5,000 unit SUBCUT Q12H [facility] Last Admin: 09/02/22 00:14 Dose: Not Given Documented By: TIFF Non-Admin Reason: Patient Refused Hydralazine HCl (Hydralazine Hcl 25 Mg Tablet) 75 mg PO TID [facility]; Protocol Last Admin: 09/02/22 08:59 Dose: Not Given Documented By: KERRIE Non-Admin Reason: Patient Refused Hydromorphone HCl (Hydromorphone Hcl 0.5 Mg/0.5 Ml Syringe) 0.25 mg IVPUSH Q4H PRN; Protocol PRN Reason: Pain, Severe (Pain Scale 7-10) Last Admin: 09/02/22 07:39 Dose: 0.25 mg Documented By: KERRIE Lactated Ringer's (Lr) 500 mls @ 20 mls/hr IVCONT .Q24H [facility] Last Admin: 09/02/22 07:49 Dose: Not Given Documented By: KERRIE Non-Admin Reason: order from egd Insulin Human Lispro (Insulin Lispro 100 Unit/Ml 3 Ml Vial) 0 unit SUBCUT QIDACHS [facility]; Protocol Last Admin: 09/02/22 07:49 Dose: Not Given Documented By: KERRIE Non-Admin Reason: No Insulin Coverage Isosorbide Mononitrate (Isosorbide Mononitrate 30 Mg Tab.Er.24h) 15 mg PO DAILY [facility]; Protocol Last Admin: 09/02/22 07:38 Dose: 15 mg Documented By: KERRIE Comments: [id number] Lidocaine (Lidocaine 4 % Patch Adh..Patch) 1 patch TRANSDERMA DAILY [facility]; Protocol Last Admin: 09/02/22 07:50 Dose: Not Given Documented By: KERRIE Non-Admin Reason: Patient Refused Losartan Potassium (Losartan Potassium 25 Mg Tablet) 25 mg PO DAILY [facility]; Protocol Last Admin: 09/02/22 07:38 Dose: 25 mg Documented By: KERRIE Nifedipine (Nifedipine Er 60 Mg Tab.Er.24) 60 mg PO DAILY [facility]; Protocol Last Admin: 09/02/22 08:59 Dose: Not Given Documented By: KERRIE Non-Admin Reason: Patient Refused Omeprazole (Omeprazole 40 Mg Capsule.Dr) 40 mg PO DAILY@0630 [facility] Last Admin: 09/02/22 07:38 Dose: 40 mg Documented By: KERRIE Ondansetron HCl (Ondansetron Hcl 4 Mg/2 Ml Vial) 4 mg IVPUSH Q8H PRN PRN Reason: Nausea and Vomiting Last Admin: 08/31/22 08:15 Dose: 4 mg Documented By: HAIM Ondansetron HCl (Ondansetron Hcl 4 Mg/2 Ml Vial) 4 mg IVPUSH ONCE PRN PRN Reason: Nausea and Vomiting Prednisone (Prednisone 10 Mg Tablet) 5 mg PO DAILY [facility]; Taper Stop: 09/03/22 08:59 Last Admin: 09/02/22 07:37 Dose: 5 mg Documented By: KERRIE Sodium Chloride (0.9 % Sodium Chloride Flush 3 Ml Syringe) 3 ml IVFLUSH QSHIFT [facility] Last Admin: 09/02/22 07:49 Dose: Not Given Documented By: KERRIE Non-Admin Reason: Previously Administered Sucralfate (Sucralfate 1 Gm Tablet) 1 gm PO QIDACHS [facility] Last Admin: 09/02/22 07:39 Dose: 1 gm Documented By: KERRIE Torsemide (Torsemide 20 Mg Tablet) 40 mg PO BID [facility]; Protocol Last Admin: 09/02/22 08:59 Dose: Not Given Documented By: KERRIE Non-Admin Reason: Patient Refused Labs 08/26/22 06:44 08/27/22 06:22 Labs: Laboratory Results - last 24 hr 09/01/22 09/01/22 09/01/22 11:29 16:02 20:18 POC Glucose 133 H 156 H 94 09/02/22 07:11 POC Glucose 124 H Assessment and Plan (1) Hypertensive urgency: Status: Resolved (2) Intractable nausea and vomiting: Status: Resolved Plan d7 31yo F with HTN, chronic HFrEF, DM2 with retinopathy, mood disorder, PAD s/p TMTA, ERSD recently started on HD during recent hospitalization for NSTEMI, recent hospitalization for hyperglycemia, admitted for intractable N/V # N/V due to gastroparesis - EGD 09/01/[address] Tapia: Findings: Larynx:normal Esophagus: GE junction at 43? cm, diaphragm hiatus at 43 cm, irregular Z line with possible barretts Stomach: Patchy gastric erythema. Biopsies were obtained. Grade 2 flap valve on retroflexed examination of the cardia. Large amount of food in the stomach. No ulcer or mass seen Duodenum: Unable to enter due to food blocking pylorus - continue PPI + sucralfate - continue ondansetron - continue metoclopramide, change back to PO - continue IV diphenhydramine - QTc >500ms yesterday, stopped IV erythromycin + PO metoclopramide - small meals, low-fat + low-fiber, nutrition consult - f/u biopsy results, treat H pylori if present # atypical chest pain, resolved - troponins flat, EKG without evidence of acute ischemia - CXR negative - Imdur 15 mg daily added - negative bilateral venous duplex # ESRD on HD - continue HD as scheduled TTS; Nephrology consulted # insulin-dependent type 2 diabetes - muna-dose lispro # CAD with recent NSTEMI 08/14/22 - no anginal chest pain currently. EKG nonischemic, troponin flat - continue dual antiplatelet therapy, carvedilol, atorvastatin # hypertensive urgency - better controlled after HD - continue home meds: carvedilol, hyralazine, losartan, Imdur, nifedipine, torsemide # mood disorder - continue home meds # PAD - continue DAPT # chronic HFrEF - no acute exacerbation - continue torsemide + antihypertensives # anemia of ESRD - continue Fe, monitor H+H # VTE ppx: UFH # dispo: eventual home In my clinical judgment, the patient requires continued inpatient hospitalization for the following reasons: PO intolerance Time Spent With Patient Time: Total time managing care of this patient today ___35_ minutes. Quality Stroke Does the patient have a stroke diagnosis?: No VTE Prior VTE?: No VTE Risk Level:: Medical - moderate - high VTE Device Contraindication: Treatment Not Indicated VTE Drug Contraindication: N/A - Med Ordered
--- NOTE | 2022-09-02 10:05 | HO.POSTANES ---
Post Anesthesia Evaluation Post Anesthesia Evaluation Date of Service: 09/02/22 Vital Signs: Vital Signs Temp Pulse Resp BP Pulse Ox O2 Del Method 09/02/22 07:22 98 Room Air 09/02/22 07:31 99.3 F 88 18 172/82 H 98 Room Air 09/02/22 03:48 97.7 F 93 18 130/80 98 Room Air 09/02/22 01:15 99.7 F 09/01/22 23:54 100.7 F H 100 18 154/82 H 96 Room Air Anesthesia: Monitored Mental Status: Awake Pain Control: Satisfactory Nausea/Vomiting: None Hydration: Adequate Anesthesia-Related Issues: No Anes. Related Issues
--- NOTE | 2022-09-02 14:06 | PM.PNNEP ---
Subjective Subjective Date of Service: 09/02/22 Interval history: unable to tolerate lunch or dinner c/o nausea, postprandial pain Seen on HD Physical Exam Vital Signs: Vital Signs: Last Vital Signs Temp 99.3 F 09/02/22 07:31 Pulse 88 09/02/22 07:31 Resp 18 09/02/22 07:31 BP 172/82 H 09/02/22 07:31 Pulse Ox 98 09/02/22 07:31 O2 Del Method Room Air 09/02/22 07:31 BMI result Body Mass Index 36.0 Comfortable Neck is supple Lung: Air entry equal Heart: S1,S2, normal. No rub Abd: Soft. BS + NS : Alert.No asterexis Ext: 1+ edema Const: Other: Constitutional : Awake, interactive, restless Neck : Normal inspection, Supple Cardiovascular : RRR, elevated? JVP, trace lower extremity edema Respiratory : fair bilateral air entry,? basal fine crackles, wheezes or rhonchi Gastrointestinal:? soft, lax, Normal bowel sounds, Non tender Skin : Warm, Dry. PErmacath place clean with no erthyma Neurological : Alert & oriented x3, No focal deficit Objective Data Labs 08/26/22 06:44 08/27/22 06:22 Labs: Laboratory Results - last 24 hr 09/01/22 09/01/22 09/02/22 16:02 20:18 07:11 POC Glucose 156 H 94 124 H 09/02/22 10:54 POC Glucose 145 H Procedures Date of Service Date of Service: 09/02/22 Assessment & Plan Assessment and plan (1) Hypertensive urgency: Status: Resolved (2) End-stage renal disease (ESRD): Status: Resolved Plan YOUNG WOMAN WITH LONGSTANDING DIABETES MELLITUS AND UNCONTROLLED HYPERTENSION WITH NEWLY DIAGNOSED ESRD. UNCONTROLLED HYPERTENSION IS PRIMARILY DUE TO FLUID OVERLOAD. SHE IS ALSO NONCOMPLIANT WITH HER MEDICATIONS. ANEMIA DUE TO UNDERLYING CHRONIC KIDNEY DISEASE. MILD HYPERKALEMIA IN THE SETTING OF ESRD. RECOMMENDATION Continue hemodialysis Per schedule In house she is TTS Out Pt HD on MWF 3rd shift at 4.30 PM D/w pt about compliance Had EGD REMOVE FLUID TOLERATED during dialysis. 20 K Epogen yesterday for anemia. Thx . Time Spent With Patient Time: Total time managing care of this patient today ____ minutes. Progress Note: Quality Stroke Does the patient have a stroke diagnosis?: No
[2022-09-02 16:00] VITALS: BP 160/59; PULSE 94; RESP 20; TEMP 36.1; O2SAT 94
[2022-09-02] MEDS: hydrALAZINE HCl 25 MG TABLET 75 MG PO ×2 (16:10→22:18)
[2022-09-02] MEDS: 0.9 % Sodium Chloride Flush 3 ML SYRINGE IVFLUSH ×2 (16:10→22:13)
[2022-09-02] MEDS: Insulin Lispro 100 UNIT/ML 3 ML VIAL SUBCUT ×2 (16:26→22:12)
[2022-09-02 20:01] VITALS: BP 149/70; PULSE 86; RESP 20; TEMP 36.4; O2SAT 95
[2022-09-03] VITALS (11 sets, daily range): BP systolic 70–192; BP diastolic 45–93; PULSE 59–89; RESP 18–20; TEMP 36.3–36.9; O2SAT 93–98
[2022-09-03] MEDS: diphenhydrAMINE HCL 50 MG/ML VIAL 25 MG IVPUSH ×3 (00:08→17:09)
[2022-09-03] MEDS: HYDROmorphone HCl 0.5 MG/0.5 ML SYRINGE 0.25 MG IVPUSH ×4 (00:10→17:09)
[2022-09-03] MEDS: hydrALAZINE HCl 25 MG TABLET 75 MG PO ×2 (09:02→13:33)
[2022-09-03] MEDS: NIFEdipine ER 60 MG TAB.ER.24 PO (09:02)
[2022-09-03] MEDS: Sucralfate 1 GM TABLET PO ×2 (09:03→16:21)
[2022-09-03] MEDS: Isosorbide Mononitrate 30 MG TAB.ER.24H 15 MG PO (09:03)
[2022-09-03] MEDS: Losartan Potassium 25 MG TABLET PO (09:03)
[2022-09-03] MEDS: carvediloL 12.5 MG TABLET 25 MG PO (09:04)
[2022-09-03] MEDS: 0.9 % Sodium Chloride Flush 3 ML SYRINGE IVFLUSH ×3 (09:09→23:17)
[2022-09-03] MEDS: Famotidine/PF 20 MG/2 ML VIAL IVPUSH ×2 (09:15→22:13)
--- NOTE | 2022-09-03 09:53 | HO.PM.IMPN ---
Subjective Subjective Date of Service: 09/03/22 Interval History: Follow up for abd pain, gastroparesis appetite improving c/o nausea, postprandial pain Review of Systems Review of Systems: Yes all other systems are reviewed and are negative Physical Exam Vital Signs: Vital Signs: Last Vital Signs Temp 98.0 F 09/03/22 08:00 Pulse 89 09/03/22 01:00 Resp 18 09/03/22 08:00 BP 192/93 H 09/03/22 08:00 Pulse Ox 93 09/03/22 08:00 O2 Del Method Room Air 09/03/22 08:00 BMI result Body Mass Index 36.0 Appearing in no acute distress lung sounds are clear to auscultation heart regular rate rhythm, clear S1, S2 positive bowel sounds, abdomen is soft, nontender neuro patient is alert x3, no focal deficits Objective Data Active Medications Acetaminophen (Acetaminophen 325 Mg Tablet) 650 mg PO Q6H PRN PRN Reason: Pain, Mild (Pain Scale 1-3) Aspirin (Aspirin Enteric Coated 81 Mg Tablet.) 81 mg PO DAILY [facility] Last Admin: 09/03/22 09:19 Dose: Not Given Documented By: KERRIE Non-Admin Reason: Patient Refused Atorvastatin Calcium (Atorvastatin Calcium 40 Mg Tablet) 40 mg PO BEDTIME [facility] Last Admin: 09/02/22 22:18 Dose: Not Given Documented By: TIFF Non-Admin Reason: Patient Refused Carvedilol (Carvedilol 12.5 Mg Tablet) 25 mg PO BID [facility]; Protocol Last Admin: 09/03/22 09:04 Dose: 25 mg Documented By: KERRIE Clopidogrel Bisulfate (Clopidogrel Bisulfate 75 Mg Tablet) 75 mg PO DAILY [facility] Last Admin: 09/03/22 09:18 Dose: Not Given Documented By: KERRIE Non-Admin Reason: Patient Refused Dextrose (Dextrose 50 % 25 Gm/50 Ml Syringe) 25 gm IVPUSH Q15M PRN; Protocol PRN Reason: per Hypoglycemia Standing Ord. Diphenhydramine HCl (Diphenhydramine Hcl 50 Mg/Ml Vial) 25 mg IVPUSH Q6H PRN PRN Reason: Itching Last Admin: 09/03/22 09:02 Dose: 25 mg Documented By: KERRIE Docusate Sodium (Docusate Sodium 100 Mg Capsule) 100 mg PO DAILY PRN PRN Reason: Constipation Famotidine (Famotidine/Pf 20 Mg/2 Ml Vial) 20 mg IVPUSH BID [facility] Last Admin: 09/03/22 09:15 Dose: 20 mg Documented By: KERRIE Ferrous Sulfate (Ferrous Sulfate 324 Mg Tablet.Dr) 324 mg PO DAILY [facility] Last Admin: 09/03/22 09:18 Dose: Not Given Documented By: KERRIE Non-Admin Reason: Patient Refused Glucose (Glucose Gel 15 Gm Gel..Gram.) 15 gm PO Q15M PRN; Protocol PRN Reason: per Hypoglycemia Standing Ord. Heparin Sodium (Porcine) (Heparin Sodium,Porcine 5,000 Unit/Ml Vial) 5,000 unit SUBCUT Q12H [facility] Last Admin: 09/03/22 00:07 Dose: Not Given Documented By: TIFF Non-Admin Reason: Patient Refused Hydralazine HCl (Hydralazine Hcl 25 Mg Tablet) 75 mg PO TID [facility]; Protocol Last Admin: 09/03/22 09:02 Dose: 75 mg Documented By: KERRIE Hydromorphone HCl (Hydromorphone Hcl 0.5 Mg/0.5 Ml Syringe) 0.25 mg IVPUSH Q4H PRN; Protocol PRN Reason: Pain, Severe (Pain Scale 7-10) Last Admin: 09/03/22 09:02 Dose: 0.25 mg Documented By: KERRIE Insulin Human Lispro (Insulin Lispro 100 Unit/Ml 3 Ml Vial) 0 unit SUBCUT QIDACHS [facility]; Protocol Last Admin: 09/03/22 08:34 Dose: Not Given Documented By: KERRIE Non-Admin Reason: No Insulin Coverage Isosorbide Mononitrate (Isosorbide Mononitrate 30 Mg Tab.Er.24h) 15 mg PO DAILY [facility]; Protocol Last Admin: 09/03/22 09:03 Dose: 15 mg Documented By: KERRIE Lidocaine (Lidocaine 4 % Patch Adh..Patch) 1 patch TRANSDERMA DAILY [facility]; Protocol Last Admin: 09/03/22 09:18 Dose: Not Given Documented By: KERRIE Non-Admin Reason: Patient Refused Losartan Potassium (Losartan Potassium 25 Mg Tablet) 25 mg PO DAILY [facility]; Protocol Last Admin: 09/03/22 09:03 Dose: 25 mg Documented By: KERRIE Nifedipine (Nifedipine Er 60 Mg Tab.Er.24) 60 mg PO DAILY [facility]; Protocol Last Admin: 09/03/22 09:02 Dose: 60 mg Documented By: KERRIE Omeprazole (Omeprazole 40 Mg Capsule.Dr) 40 mg PO DAILY@0630 [facility] Last Admin: 09/02/22 07:38 Dose: 40 mg Documented By: KERRIE Ondansetron HCl (Ondansetron Hcl 4 Mg/2 Ml Vial) 4 mg IVPUSH Q8H PRN PRN Reason: Nausea and Vomiting Last Admin: 08/31/22 08:15 Dose: 4 mg Documented By: HAIM Ondansetron HCl (Ondansetron Hcl 4 Mg/2 Ml Vial) 4 mg IVPUSH ONCE PRN PRN Reason: Nausea and Vomiting Sodium Chloride (0.9 % Sodium Chloride Flush 3 Ml Syringe) 3 ml IVFLUSH QSHIFT [facility] Last Admin: 09/03/22 09:09 Dose: 3 ml Documented By: KERRIE Sucralfate (Sucralfate 1 Gm Tablet) 1 gm PO QIDACHS [facility] Last Admin: 09/03/22 09:03 Dose: 1 gm Documented By: KERRIE Torsemide (Torsemide 20 Mg Tablet) 40 mg PO BID [facility]; Protocol Last Admin: 09/03/22 09:19 Dose: Not Given Documented By: KERRIE Non-Admin Reason: Patient Refused Labs 08/26/22 06:44 08/27/22 06:22 Labs: Laboratory Results - last 24 hr 09/02/22 09/02/22 09/02/22 10:54 16:17 20:39 POC Glucose 145 H 182 H 151 H 09/03/22 08:18 POC Glucose 108 Assessment and Plan (1) Hypertensive urgency: Status: Resolved (2) Intractable nausea and vomiting: Status: Resolved Plan 31yo F with HTN, chronic HFrEF, DM2 with retinopathy, mood disorder, PAD s/p TMTA, ERSD recently started on HD during recent hospitalization for NSTEMI, recent hospitalization for hyperglycemia, admitted for intractable N/V N/V due to gastroparesis s/p EGD 09/01/22>possible barretts, large amounts of food inthe stomach, no ulcers or mass biopsy obtained continue PPI + sucralfate continue ondansetron continue IV diphenhydramine QTc >500ms yesterday, stopped IV erythromycin + PO metoclopramide small meals, low-fat + low-fiber, nutrition consult f/u biopsy results, treat H pylori if present atypical chest pain, resolved troponins flat, EKG without evidence of acute ischemia CXR negative continue Imdur 15 mg daily negative bilateral venous duplex ESRD on HD continue HD as scheduled Nephrology consulted schedule changed to [facility] insulin-dependent type 2 diabetes ss, ada diet CAD with recent NSTEMI 08/14/22 no anginal chest pain currently. EKG nonischemic, troponin flat continue dual antiplatelet therapy, carvedilol, atorvastatin hypertensive urgency better controlled after HD continue carvedilol, hyralazine, losartan, Imdur, nifedipine, torsemide mood disorder continue home meds PAD continue DAPT chronic HFrEF no acute exacerbation continue torsemide + antihypertensives anemia of ESRD continue Fe, monitor H+H VTE ppx: UFH Attending Dr. Blanton dispo: eventual home In my clinical judgment, the patient requires continued inpatient hospitalization for the following reasons: PO intolerance Time Spent With Patient Time: Total time managing care of this patient today ____ minutes. Quality Stroke Does the patient have a stroke diagnosis?: No VTE Prior VTE?: No VTE Risk Level:: Medical - moderate - high VTE Device Contraindication: Treatment Not Indicated VTE Drug Contraindication: N/A - Med Ordered
--- NOTE | 2022-09-03 14:31 | PM.PNNEP ---
Subjective Subjective Date of Service: 09/03/22 Interval history: Follow up for abd pain, gastroparesis appetite improving c/o nausea, postprandial pain Physical Exam Vital Signs: Vital Signs: Last Vital Signs Temp 98.0 F 09/03/22 08:00 Pulse 89 09/03/22 01:00 Resp 18 09/03/22 08:00 BP 171/85 H 09/03/22 10:49 Pulse Ox 93 09/03/22 08:00 O2 Del Method Room Air 09/03/22 08:00 BMI result Body Mass Index 36.0 Appearing in no acute distress lung sounds are clear to auscultation heart regular rate rhythm, clear S1, S2 positive bowel sounds, abdomen is soft, nontender neuro patient is alert x3, no focal deficits Objective Data Labs 08/26/22 06:44 08/27/22 06:22 Labs: Laboratory Results - last 24 hr 09/02/22 09/02/22 09/03/22 16:17 20:39 08:18 POC Glucose 182 H 151 H 108 09/03/22 11:22 POC Glucose 126 H Procedures Date of Service Date of Service: 09/03/22 Assessment & Plan Assessment and plan (1) Hypertensive urgency: Status: Resolved (2) End-stage renal disease (ESRD): Status: Resolved Plan YOUNG WOMAN WITH LONGSTANDING DIABETES MELLITUS AND UNCONTROLLED HYPERTENSION WITH NEWLY DIAGNOSED ESRD. UNCONTROLLED HYPERTENSION IS PRIMARILY DUE TO FLUID OVERLOAD. SHE IS ALSO NONCOMPLIANT WITH HER MEDICATIONS. ANEMIA DUE TO UNDERLYING CHRONIC KIDNEY DISEASE. MILD HYPERKALEMIA IN THE SETTING OF ESRD. RECOMMENDATION Continue hemodialysis Per schedule In house she is TTS Out Pt HD on MWF 3rd shift at 4.30 PM D/w pt about compliance Had EGD REMOVE FLUID TOLERATED during dialysis. 20 K Epogen yesterday for anemia. Thx . Time Spent With Patient Time: Total time managing care of this patient today ____ minutes. Progress Note: Quality Stroke Does the patient have a stroke diagnosis?: No
[2022-09-03] MEDS: Insulin Lispro 100 UNIT/ML 3 ML VIAL SUBCUT (16:21)
[2022-09-03] MEDS: Acetaminophen 325 MG TABLET 650 MG PO (16:25)
[2022-09-04] VITALS (8 sets, daily range): BP systolic 79–144; BP diastolic 45–77; PULSE 65–85; RESP 16–18; TEMP 36.7–37.4; O2SAT 94–98
[2022-09-04] MEDS: diphenhydrAMINE HCL 50 MG/ML VIAL 25 MG IVPUSH ×4 (00:11→23:49)
[2022-09-04] MEDS: ondansetron HCL 4 MG/2 ML VIAL IVPUSH (00:12)
--- NOTE | 2022-09-04 02:46 | PC.NURSE ---
Addendum entered by Mona Yoo RN 09/04/22 07:14: At 0645, anotehr order for Albumin was in, BP rechecked= 117/70 H 78 , Dr. Sewell was made aware and said to hold ALbumin for now, incoming RN was made aware. Addendum entered by Mona Yoo RN 09/04/22 04:27: At 0420, Albumin 6th bottle was completed, BP=87/55 H=74, no c/o dizziness, was updated. Original Note: Pt was seen at 1999 for a routine VS check, pt refused any care at this time and prefer it done at 2099. Revisited at 2099, BP 70/50 manually, HR 68, rest of vitals are WNL pt is awake and oriented, feeling dizzy, Dr. Sewell was notified, night time BP meds were held, placed pt on slight trendelenburg as pt refusing to repositioned more, Albumin IV infusion ordered, POC 162, MD said not to cover POC also. At 2152, pt c/o not feeling good as she's going to pass out, BP= 82/47 H 65, reassured pt about her BP and symptoms, encouraged to stay on bed, 1st bottle of Albumin infusing, TRoponin and BNP ordered stat, pt refused any blood draw, made aware. At 2300, pt still restless and continually c/o dizziness and now with numbness on the right side of her face and toothache, BP= 77/45 H 59, second bottle of albumin is finishing, offered tylenol but refused, Dr. Sewell was updated. Another 2 bottles of Albumin was ordered. pt is constantly moaning that she feels dizzy and doesn't feel good, still refusing labs when offered, Dr. Sewell was made aware. At 0118 , 4th Albumin is done, BP 79/45 H 65 , still feeling off and dizzy, Dr. Sewell was updated, pt still refusing to have her labs done, MD was aware. At 2am, another 2 bottles of Albumin was ordered , pt complied.
--- NOTE | 2022-09-04 06:41 | PM.EVENT ---
Event Note Date of Service: 09/04/22 Event Note: Patient with low blood pressure and dizziness overnight. Administered albumin with improvement in dizziness. Hold antihypertensives. Ordered troponin and BNP to rule out a cardiogenic etiology but patient refused labs Time Spent With Patient Time: Total time managing care of this patient today ____ minutes.
[2022-09-04] MEDS: Losartan Potassium 25 MG TABLET PO (08:26)
[2022-09-04] MEDS: Omeprazole 40 MG CAPSULE.DR PO (08:26)
[2022-09-04] MEDS: Famotidine/PF 20 MG/2 ML VIAL IVPUSH ×2 (08:26→20:26)
[2022-09-04] MEDS: Ferrous Sulfate 324 MG TABLET.DR PO (08:26)
[2022-09-04] MEDS: carvediloL 12.5 MG TABLET 25 MG PO (08:27)
[2022-09-04] MEDS: Torsemide 20 MG TABLET 40 MG PO (08:27)
[2022-09-04] MEDS: Aspirin Enteric Coated 81 MG TABLET.DR PO (08:28)
[2022-09-04] MEDS: 0.9 % Sodium Chloride Flush 3 ML SYRINGE IVFLUSH ×3 (08:28→23:42)
[2022-09-04] MEDS: Sucralfate 1 GM TABLET PO ×2 (08:28→11:49)
[2022-09-04] MEDS: Insulin Lispro 100 UNIT/ML 3 ML VIAL SUBCUT (08:29)
[2022-09-04] MEDS: Lidocaine 4 % Patch ADH..PATCH 1 PATCH TRANSDERMA (08:33)
[2022-09-04] MEDS: HYDROmorphone HCl 0.5 MG/0.5 ML SYRINGE 0.25 MG IVPUSH ×3 (08:45→20:29)
[2022-09-04] MEDS: Clopidogrel Bisulfate 75 MG TABLET PO (08:47)
--- NOTE | 2022-09-04 10:40 | HO.PM.IMPN ---
Subjective Subjective Date of Service: 09/04/22 Interval History: hypotensive overnight, lightheaded/dizzy no chest pain no dyspnea refused lab workup overnight agrees to it now given 6 doses of IV albumin and BP now normal still c/o N/V/abd pain Review of Systems Review of Systems: Yes all other systems are reviewed and are negative Physical Exam Vital Signs: Vital Signs: Last Vital Signs Temp 98.1 F 09/04/22 08:15 Pulse 79 09/04/22 08:15 Resp 18 09/04/22 08:15 BP 138/68 09/04/22 08:15 Pulse Ox 98 09/04/22 08:15 O2 Del Method Room Air 09/04/22 08:15 BMI result Body Mass Index 36.0 Gen: in no acute distress HEENT: sclera anicteric, moist mucus membranes, blind Neck: supple Lungs: clear to auscultation bilaterally Heart: regular rate and rhythm, no murmurs Abd: soft, epigastric tenderness, no rebound Ext: trace leg edema bilaterally Skin: warm/well-perfused Neuro: alert and oriented x3, no focal findings Psych: appropriate affect Objective Data Active Medications Acetaminophen (Acetaminophen 325 Mg Tablet) 650 mg PO Q6H PRN PRN Reason: Pain, Mild (Pain Scale 1-3) Last Admin: 09/03/22 16:25 Dose: 650 mg Documented By: KERRIE Aspirin (Aspirin Enteric Coated 81 Mg Tablet.) 81 mg PO DAILY [facility] Last Admin: 09/04/22 08:28 Dose: 81 mg Documented By: THIEN Atorvastatin Calcium (Atorvastatin Calcium 40 Mg Tablet) 40 mg PO BEDTIME [facility] Last Admin: 09/03/22 21:24 Dose: Not Given Documented By: OLGA Non-Admin Reason: Patient Refused Carvedilol (Carvedilol 12.5 Mg Tablet) 25 mg PO BID [facility]; Protocol Last Admin: 09/04/22 08:27 Dose: 25 mg Documented By: THIEN Clopidogrel Bisulfate (Clopidogrel Bisulfate 75 Mg Tablet) 75 mg PO DAILY [facility] Last Admin: 09/04/22 08:47 Dose: 75 mg Documented By: THIEN Dextrose (Dextrose 50 % 25 Gm/50 Ml Syringe) 25 gm IVPUSH Q15M PRN; Protocol PRN Reason: per Hypoglycemia Standing Ord. Diphenhydramine HCl (Diphenhydramine Hcl 50 Mg/Ml Vial) 25 mg IVPUSH Q6H PRN PRN Reason: Itching Last Admin: 09/04/22 06:46 Dose: 25 mg Documented By: OLGA Docusate Sodium (Docusate Sodium 100 Mg Capsule) 100 mg PO DAILY PRN PRN Reason: Constipation Famotidine (Famotidine/Pf 20 Mg/2 Ml Vial) 20 mg IVPUSH BID [facility] Last Admin: 09/04/22 08:26 Dose: 20 mg Documented By: THIEN Ferrous Sulfate (Ferrous Sulfate 324 Mg Tablet.Dr) 324 mg PO DAILY [facility] Last Admin: 09/04/22 08:26 Dose: 324 mg Documented By: THIEN Glucose (Glucose Gel 15 Gm Gel..Gram.) 15 gm PO Q15M PRN; Protocol PRN Reason: per Hypoglycemia Standing Ord. Heparin Sodium (Porcine) (Heparin Sodium,Porcine 5,000 Unit/Ml Vial) 5,000 unit SUBCUT Q12H [facility] Last Admin: 09/03/22 23:03 Dose: Not Given Documented By: OLGA Non-Admin Reason: Patient Refused Hydralazine HCl (Hydralazine Hcl 25 Mg Tablet) 75 mg PO TID [facility]; Protocol Last Admin: 09/03/22 21:07 Dose: Not Given Documented By: OLGA Non-Admin Reason: Physician Held Med Hydromorphone HCl (Hydromorphone Hcl 0.5 Mg/0.5 Ml Syringe) 0.25 mg IVPUSH Q4H PRN; Protocol PRN Reason: Pain, Severe (Pain Scale 7-10) Last Admin: 09/04/22 08:45 Dose: 0.25 mg Documented By: THIEN Insulin Human Lispro (Insulin Lispro 100 Unit/Ml 3 Ml Vial) 0 unit SUBCUT QIDACHS [facility]; Protocol Last Admin: 09/04/22 08:29 Dose: 2 unit Documented By: THIEN Isosorbide Mononitrate (Isosorbide Mononitrate 30 Mg Tab.Er.24h) 15 mg PO DAILY [facility]; Protocol Last Admin: 09/03/22 09:03 Dose: 15 mg Documented By: KERRIE Lidocaine (Lidocaine 4 % Patch Adh..Patch) 1 patch TRANSDERMA DAILY [facility]; Protocol Last Admin: 09/04/22 08:33 Dose: 1 patch Documented By: THIEN Losartan Potassium (Losartan Potassium 25 Mg Tablet) 25 mg PO DAILY [facility]; Protocol Last Admin: 09/04/22 08:26 Dose: 25 mg Documented By: THIEN Nifedipine (Nifedipine Er 60 Mg Tab.Er.24) 60 mg PO DAILY [facility]; Protocol Last Admin: 09/03/22 09:02 Dose: 60 mg Documented By: KERRIE Omeprazole (Omeprazole 40 Mg Capsule.Dr) 40 mg PO DAILY@0630 [facility] Last Admin: 09/04/22 08:26 Dose: 40 mg Documented By: THIEN Ondansetron HCl (Ondansetron Hcl 4 Mg/2 Ml Vial) 4 mg IVPUSH Q8H PRN PRN Reason: Nausea and Vomiting Last Admin: 09/04/22 00:12 Dose: 4 mg Documented By: OLGA Ondansetron HCl (Ondansetron Hcl 4 Mg/2 Ml Vial) 4 mg IVPUSH ONCE PRN PRN Reason: Nausea and Vomiting Sodium Chloride (0.9 % Sodium Chloride Flush 3 Ml Syringe) 3 ml IVFLUSH QSHIFT [facility] Last Admin: 09/04/22 08:28 Dose: 3 ml Documented By: THIEN Sucralfate (Sucralfate 1 Gm Tablet) 1 gm PO QIDACHS [facility] Last Admin: 09/04/22 08:28 Dose: 1 gm Documented By: THIEN Torsemide (Torsemide 20 Mg Tablet) 40 mg PO BID [facility]; Protocol Last Admin: 09/04/22 08:27 Dose: 40 mg Documented By: THIEN Labs 08/26/22 06:44 08/27/22 06:22 Labs: Laboratory Results - last 24 hr 09/03/22 09/03/22 09/03/22 11:22 16:08 21:00 POC Glucose 126 H 201 H 162 H 09/04/22 08:13 POC Glucose 179 H Assessment and Plan (1) Hypertensive urgency: Status: Resolved (2) Intractable nausea and vomiting: Status: Resolved Plan d9 31yo F with HTN, chronic HFrEF, DM2 with retinopathy, mood disorder, PAD s/p TMTA, ERSD recently started on HD during recent hospitalization for NSTEMI, recent hospitalization for hyperglycemia, admitted for intractable N/V hypotension ?cause - check BCx venous + dialysis line, check lactate, CBCd,CMP - TTE, Tn-I, BNP - hold carvedilol, hyralazine, losartan, Imdur, nifedipine, torsemide refusal of care - psychiatry consult N/V due to gastroparesis - s/p EGD 09/01/22 showing 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 + large amounts of food in the stomach, no ulcers or mass; biopsy obtained - continue PPI + sucralfate - continue ondansetron - continue IV diphenhydramine - QTc 519 ms, corrects to 576 ms, so not using IV erythromycin or PO/IV metoclopramide - small meals, low-fat + low-fiber, nutrition consult - f/u biopsy results, treat H pylori if present atypical chest pain, resolved - troponins flat, EKG without evidence of acute ischemia - CXR negative - continue Imdur 15 mg daily - negative bilateral venous duplex ESRD on HD - continue HD as scheduled - Nephrology consulted - schedule changed to [facility] insulin-dependent type 2 diabetes - muna-dose lispro, ADA diet CAD with recent NSTEMI 08/14/22 - no anginal chest pain currently - EKG nonischemic, troponin flat - continue dual antiplatelet therapy, carvedilol, atorvastatin hypertensive urgency - resolved and now hypotensive ?cause - hold carvedilol, hyralazine, losartan, Imdur, nifedipine, torsemide mood disorder - continue home meds PAD - continue DAPT chronic HFrEF - no acute exacerbation - continue torsemide + antihypertensives anemia of ESRD - continue Fe, monitor H+H VTE ppx: UFH dispo: eventual home In my clinical judgment, the patient requires continued inpatient hospitalization for the following reasons: PO intolerance, hypotension Time Spent With Patient Time: Total time managing care of this patient today _55___ minutes. Quality Stroke Does the patient have a stroke diagnosis?: No VTE Prior VTE?: No VTE Risk Level:: Medical - moderate - high VTE Device Contraindication: Treatment Not Indicated VTE Drug Contraindication: N/A - Med Ordered
[2022-09-04] MEDS: Heparin Sodium,Porcine 5,000 UNIT/ML VIAL 5000 UNIT SUBCUT (11:50)
[2022-09-04 11:57] LABS: Alanine Aminotransferase 22 U/L (0-31); Albumin Level 4.1 g/dL (3.5-5.0); Alkaline Phosphatase 149 U/L (39-117); Anion Gap 17 (12-20); Aspartate Amino Transferase 37 U/L (5-31); Bilirubin Total 1.3 mg/dL (0.0-1.0); Blood Urea Nitrogen 42 mg/dL (9-16); Calcium 8.8 mg/dL (8.4-10.2); Carbon Dioxide 20 mmol/L (22-29); Chloride 102 mmol/L (96-108); Creatinine Clr Calc Pharmacy 22.7; Estimated Glomerular Filt Rate 13; Glucose Random 153 mg/dL (60-115); Sodium 135 mmol/L (135-145); Total Protein 6.8 g/dL (6.5-8.0)
--- NOTE | 2022-09-04 13:06 | PM.EVENT ---
Event Note Date of Service: 09/04/22 Event Note: BP improved to 139/76 Hb 7.2 recommended transfusion, pt declines for now, wishing to think about it despite counseling on risks/benefits will recheck CBC in AM + T/S Time Spent With Patient Time: Total time managing care of this patient today ____ minutes.
--- NOTE | 2022-09-04 13:58 | PM.PNNEP ---
Subjective Subjective Date of Service: 09/04/22 Interval history: Seen and examined, events noted Episode of Low BP last nite--res[ponded to IV alb Physical Exam Vital Signs: Vital Signs: Last Vital Signs Temp 98.1 F 09/04/22 08:15 Pulse 80 09/04/22 12:00 Resp 18 09/04/22 08:15 BP 139/76 09/04/22 12:00 Pulse Ox 98 09/04/22 12:00 O2 Del Method Room Air 09/04/22 12:00 BMI result Body Mass Index 36.0 Const: Other: Constitutional : Awake, interactive, restless Neck : Normal inspection, Supple Cardiovascular : RRR, elevated? JVP, trace lower extremity edema Respiratory : fair bilateral air entry,? basal fine crackles, wheezes or rhonchi Gastrointestinal:? soft, lax, Normal bowel sounds, Non tender Skin : Warm, Dry. PErmacath place clean with no erthyma Neurological : Alert & oriented x3, No focal deficit Objective Data Labs 09/04/22 10:55 09/04/22 10:55 Labs: Laboratory Results - last 24 hr 09/03/22 09/03/22 09/04/22 16:08 21:00 08:13 WBC RBC Hgb Hct MCV MCH MCHC RDW Plt Count MPV Absolute Nucleated RBC Nucleated RBC % (auto) Sodium Potassium Chloride Carbon Dioxide Anion Gap BUN Creatinine Estim Creat Clear Calc Estimated GFR POC Glucose 201 H 162 H 179 H Random Glucose Lactic Acid Calcium Total Bilirubin AST ALT Alkaline Phosphatase Troponin I High Sens B-Natriuretic Peptide Total Protein Albumin 09/04/22 09/04/22 09/04/22 10:55 10:55 10:55 WBC 4.0 L RBC 2.69 L Hgb 7.2 L Hct 23.1 L MCV 85.9 MCH 26.8 L MCHC 31.2 RDW 18.9 H Plt Count 117 L D MPV 11.2 Absolute Nucleated RBC 0.000 Nucleated RBC % (auto) 0.0 Sodium 135 Potassium 4.0 Chloride 102 Carbon Dioxide 20 L Anion Gap 17 BUN 42 H Creatinine 4.04 H* Estim Creat Clear Calc 22.7 Estimated GFR 13 POC Glucose Random Glucose 153 H Lactic Acid 0.9 Calcium 8.8 D Total Bilirubin 1.3 H AST 37 H ALT 22 Alkaline Phosphatase 149 H Troponin I High Sens B-Natriuretic Peptide Total Protein 6.8 Albumin 4.1 09/04/22 09/04/22 09/04/22 10:55 10:55 11:20 WBC RBC Hgb Hct MCV MCH MCHC RDW Plt Count MPV Absolute Nucleated RBC Nucleated RBC % (auto) Sodium Potassium Chloride Carbon Dioxide Anion Gap BUN Creatinine Estim Creat Clear Calc Estimated GFR POC Glucose 159 H Random Glucose Lactic Acid Calcium Total Bilirubin AST ALT Alkaline Phosphatase Troponin I High Sens 64.2 H* B-Natriuretic Peptide 1642 H Total Protein Albumin Procedures Date of Service Date of Service: 09/04/22 Assessment & Plan Assessment and plan (1) Hypertensive urgency: Status: Resolved (2) End-stage renal disease (ESRD): Status: Resolved Plan ESRD: cont HD TTS GI upset cont on/off probs Nephrogenic anemia MBD of CKD Low BPP event: w/u in progress--need to r/o infection and cardiac event REC: cont HD 3x/wk; w/u for low BP event Time Spent With Patient Time: Total time managing care of this patient today ____ minutes. Progress Note: Quality Stroke Does the patient have a stroke diagnosis?: No
[2022-09-04 20:08] LABS: Glucose, Whole Blood 85 mg/dL (60-115)
[2022-09-04] MEDS: Atorvastatin Calcium 40 MG TABLET PO (20:28)
--- NOTE | 2022-09-04 22:39 | PC.NURSE ---
Poor appetite,tolerated crackers,jello,peanut butter and jelly sandwiche this evening
[2022-09-05] VITALS (9 sets, daily range): BP systolic 93–189; BP diastolic 54–97; PULSE 72–94; RESP 16–20; TEMP 36.1–37.2; O2SAT 93–97
[2022-09-05] MEDS: HYDROmorphone HCl 0.5 MG/0.5 ML SYRINGE 0.25 MG IVPUSH ×5 (01:49→22:59)
[2022-09-05] MEDS: ondansetron HCL 4 MG/2 ML VIAL IVPUSH (05:26)
[2022-09-05] MEDS: diphenhydrAMINE HCL 50 MG/ML VIAL 25 MG IVPUSH ×3 (05:29→20:18)
[2022-09-05 05:57] LABS: Hematocrit 24.8 % (37.0-47.0); Hemoglobin 7.7 g/dl (12.0-16.0); Mean Corpuscular Hemoglobin 26.6 pg (27.0-33.0); Mean Corpuscular Volume 85.5 fL (80.0-98.0); Mean Platelet Volume 11.7 fL (9.4-12.3); Platelet Count 135 X10*3/uL (160-400); Red Cell Distribution Width 18.6 % (11.0-16.0); White Blood Count 4.3 X10*3/uL (4.8-10.8)
[2022-09-05 07:46] LABS: Glucose, Whole Blood 71 mg/dL (60-115)
[2022-09-05] MEDS: Glucose Gel 15 GM GEL..GRAM. PO (07:51)
[2022-09-05] MEDS: Clopidogrel Bisulfate 75 MG TABLET PO (07:52)
[2022-09-05] MEDS: Famotidine/PF 20 MG/2 ML VIAL IVPUSH ×2 (07:52→20:21)
[2022-09-05] MEDS: Sucralfate 1 GM TABLET PO ×2 (07:52→13:24)
[2022-09-05] MEDS: NIFEdipine ER 60 MG TAB.ER.24 PO (07:52)
[2022-09-05] MEDS: Ferrous Sulfate 324 MG TABLET.DR PO (07:52)
[2022-09-05] MEDS: 0.9 % Sodium Chloride Flush 3 ML SYRINGE IVFLUSH ×3 (07:53→23:46)
[2022-09-05] MEDS: Aspirin Enteric Coated 81 MG TABLET.DR PO (07:53)
[2022-09-05] MEDS: Losartan Potassium 25 MG TABLET PO (07:53)
[2022-09-05 08:16] LABS: Glucose, Whole Blood 69 mg/dL (60-115)
[2022-09-05 08:55] LABS: Glucose, Whole Blood 111 mg/dL (60-115)
--- NOTE | 2022-09-05 09:36 | HO.PM.IMPN ---
Subjective Subjective Date of Service: 09/05/22 Interval History: hypoglycemic this AM BP now high still c/o nausea + vomiting + epigastric pain Review of Systems Review of Systems: Yes all other systems are reviewed and are negative Physical Exam Vital Signs: Vital Signs: Last Vital Signs Temp 98.7 F 09/05/22 04:00 Pulse 86 09/05/22 04:00 Resp 20 09/05/22 05:30 BP 179/86 H 09/05/22 06:03 Pulse Ox 95 09/05/22 04:00 O2 Del Method Room Air 09/05/22 04:00 BMI result Body Mass Index 36.0 Gen: in no acute distress HEENT: sclera anicteric, moist mucus membranes, blind Neck: supple Lungs: clear to auscultation bilaterally Heart: regular rate and rhythm, no murmurs Abd: soft, epigastric tenderness, no rebound Ext: trace leg edema bilaterally Skin: warm/well-perfused Neuro: alert and oriented x3, no focal findings Psych: appropriate affect Objective Data Active Medications Acetaminophen (Acetaminophen 325 Mg Tablet) 650 mg PO Q6H PRN PRN Reason: Pain, Mild (Pain Scale 1-3) Last Admin: 09/03/22 16:25 Dose: 650 mg Documented By: KERRIE Aspirin (Aspirin Enteric Coated 81 Mg Tablet.) 81 mg PO DAILY [facility] Last Admin: 09/05/22 07:53 Dose: 81 mg Documented By: THIEN Atorvastatin Calcium (Atorvastatin Calcium 40 Mg Tablet) 40 mg PO BEDTIME [facility] Last Admin: 09/04/22 20:28 Dose: 40 mg Documented By: TRAVIS Carvedilol (Carvedilol 12.5 Mg Tablet) 25 mg PO BID [facility]; Protocol Last Admin: 09/04/22 08:27 Dose: 25 mg Documented By: THIEN Clopidogrel Bisulfate (Clopidogrel Bisulfate 75 Mg Tablet) 75 mg PO DAILY [facility] Last Admin: 09/05/22 07:52 Dose: 75 mg Documented By: THIEN Dextrose (Dextrose 50 % 25 Gm/50 Ml Syringe) 25 gm IVPUSH Q15M PRN; Protocol PRN Reason: per Hypoglycemia Standing Ord. Diphenhydramine HCl (Diphenhydramine Hcl 50 Mg/Ml Vial) 25 mg IVPUSH Q6H PRN PRN Reason: Itching Last Admin: 09/05/22 05:29 Dose: 25 mg Documented By: MARIEL Docusate Sodium (Docusate Sodium 100 Mg Capsule) 100 mg PO DAILY PRN PRN Reason: Constipation Famotidine (Famotidine/Pf 20 Mg/2 Ml Vial) 20 mg IVPUSH BID [facility] Last Admin: 09/05/22 07:52 Dose: 20 mg Documented By: THIEN Ferrous Sulfate (Ferrous Sulfate 324 Mg Tablet.Dr) 324 mg PO DAILY [facility] Last Admin: 09/05/22 07:52 Dose: 324 mg Documented By: THIEN Glucose (Glucose Gel 15 Gm Gel..Gram.) 15 gm PO Q15M PRN; Protocol PRN Reason: per Hypoglycemia Standing Ord. Last Admin: 09/05/22 07:51 Dose: 15 gm Documented By: THIEN Heparin Sodium (Porcine) (Heparin Sodium,Porcine 5,000 Unit/Ml Vial) 5,000 unit SUBCUT Q12H [facility] Last Admin: 09/04/22 23:42 Dose: Not Given Documented By: MARIEL Non-Admin Reason: Patient Refused Hydralazine HCl (Hydralazine Hcl 25 Mg Tablet) 75 mg PO TID [facility]; Protocol Last Admin: 09/04/22 11:42 Dose: Not Given Documented By: THIEN Non-Admin Reason: Physician Held Med Hydromorphone HCl (Hydromorphone Hcl 0.5 Mg/0.5 Ml Syringe) 0.25 mg IVPUSH Q4H PRN; Protocol PRN Reason: Pain, Severe (Pain Scale 7-10) Last Admin: 09/05/22 05:30 Dose: 0.25 mg Documented By: MARIEL Insulin Human Lispro (Insulin Lispro 100 Unit/Ml 3 Ml Vial) 0 unit SUBCUT QIDACHS [facility]; Protocol Last Admin: 09/05/22 07:53 Dose: Not Given Documented By: THIEN Non-Admin Reason: No Insulin Coverage Isosorbide Mononitrate (Isosorbide Mononitrate 30 Mg Tab.Er.24h) 15 mg PO DAILY [facility]; Protocol Last Admin: 09/04/22 11:43 Dose: Not Given Documented By: THIEN Non-Admin Reason: Physician Held Med Lidocaine (Lidocaine 4 % Patch Adh..Patch) 1 patch TRANSDERMA DAILY [facility]; Protocol Last Admin: 09/05/22 07:59 Dose: Not Given Documented By: THIEN Non-Admin Reason: Patient Refused Losartan Potassium (Losartan Potassium 25 Mg Tablet) 25 mg PO DAILY [facility]; Protocol Last Admin: 09/05/22 07:53 Dose: 25 mg Documented By: THIEN Nifedipine (Nifedipine Er 60 Mg Tab.Er.24) 60 mg PO DAILY [facility]; Protocol Last Admin: 09/05/22 07:52 Dose: 60 mg Documented By: THIEN Omeprazole (Omeprazole 40 Mg Capsule.Dr) 40 mg PO DAILY@0630 [facility] Last Admin: 09/04/22 08:26 Dose: 40 mg Documented By: THIEN Ondansetron HCl (Ondansetron Hcl 4 Mg/2 Ml Vial) 4 mg IVPUSH Q8H PRN PRN Reason: Nausea and Vomiting Last Admin: 09/05/22 05:26 Dose: 4 mg Documented By: MARIEL Ondansetron HCl (Ondansetron Hcl 4 Mg/2 Ml Vial) 4 mg IVPUSH ONCE PRN PRN Reason: Nausea and Vomiting Sodium Chloride (0.9 % Sodium Chloride Flush 3 Ml Syringe) 3 ml IVFLUSH QSHIFT [facility] Last Admin: 09/05/22 07:53 Dose: 3 ml Documented By: THIEN Sucralfate (Sucralfate 1 Gm Tablet) 1 gm PO QIDACHS [facility] Last Admin: 09/05/22 07:52 Dose: 1 gm Documented By: THIEN Torsemide (Torsemide 20 Mg Tablet) 40 mg PO BID [facility]; Protocol Last Admin: 09/04/22 08:27 Dose: 40 mg Documented By: THIEN Labs 09/05/22 05:14 09/04/22 10:55 Labs: Laboratory Results - last 24 hr 09/04/22 09/04/22 09/04/22 10:55 10:55 10:55 MCV 85.9 MCH 26.8 L MCHC 31.2 RDW 18.9 H Plt Count 117 L D MPV 11.2 Absolute Nucleated RBC 0.000 Nucleated RBC % (auto) 0.0 Anion Gap 17 Estim Creat Clear Calc 22.7 Estimated GFR 13 POC Glucose Random Glucose 153 H Lactic Acid 0.9 Calcium 8.8 D Total Bilirubin 1.3 H AST 37 H ALT 22 Alkaline Phosphatase 149 H Troponin I High Sens B-Natriuretic Peptide Total Protein 6.8 Albumin 4.1 Blood Type Antibody Screen 09/04/22 09/04/22 09/04/22 10:55 10:55 11:20 MCV MCH MCHC RDW Plt Count MPV Absolute Nucleated RBC Nucleated RBC % (auto) Anion Gap Estim Creat Clear Calc Estimated GFR POC Glucose 159 H Random Glucose Lactic Acid Calcium Total Bilirubin AST ALT Alkaline Phosphatase Troponin I High Sens 64.2 H* B-Natriuretic Peptide 1642 H Total Protein Albumin Blood Type Antibody Screen 09/04/22 09/04/22 09/05/22 16:28 19:42 05:14 MCV 85.5 MCH 26.6 L MCHC 31.0 RDW 18.6 H Plt Count 135 L MPV 11.7 Absolute Nucleated RBC 0.000 Nucleated RBC % (auto) 0.0 Anion Gap Estim Creat Clear Calc Estimated GFR POC Glucose 100 85 Random Glucose Lactic Acid Calcium Total Bilirubin AST ALT Alkaline Phosphatase Troponin I High Sens B-Natriuretic Peptide Total Protein Albumin Blood Type Antibody Screen 09/05/22 09/05/22 09/05/22 05:14 07:23 08:13 MCV MCH MCHC RDW Plt Count MPV Absolute Nucleated RBC Nucleated RBC % (auto) Anion Gap Estim Creat Clear Calc Estimated GFR POC Glucose 71 69 Random Glucose Lactic Acid Calcium Total Bilirubin AST ALT Alkaline Phosphatase Troponin I High Sens B-Natriuretic Peptide Total Protein Albumin Blood Type A Positive Antibody Screen NEGATIVE 09/05/22 08:51 MCV MCH MCHC RDW Plt Count MPV Absolute Nucleated RBC Nucleated RBC % (auto) Anion Gap Estim Creat Clear Calc Estimated GFR POC Glucose 111 Random Glucose Lactic Acid Calcium Total Bilirubin AST ALT Alkaline Phosphatase Troponin I High Sens B-Natriuretic Peptide Total Protein Albumin Blood Type Antibody Screen TTE 09/04/22 1. Moderate LV systolic dysfunction with LVEF of 35-40% with ? mild LVH ? 2. Upper limits of normal RV systolic pressure with significantly elevated right atrial pressures? 3. Small to moderate pericardial effusion, circumferential with? no clear evidence of tamponade ? ? ? Assessment and Plan (1) Hypertensive urgency: Status: Resolved (2) Intractable nausea and vomiting: Status: Resolved Plan d10 31yo F with HTN, chronic HFrEF, DM2 with retinopathy, mood disorder, PAD s/p TMTA, ERSD recently started on HD during recent hospitalization for NSTEMI, recent hospitalization for hyperglycemia, admitted for intractable N/V hypotensive 09/03-09/04 overnight requiring 6 doses of IV albumin hypotension ?cause - pending BCx venous + dialysis line from 09/04 - held antihypertensives but now hypertensive and will resume carvedilol, losartan, and nifedipine; continue to hold Imdur, torsemide, and hydralazine and add back as needed refusal of care - psychiatry consult pending N/V due to gastroparesis - s/p EGD 09/01/22 showing 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 + large amounts of food in the stomach, no ulcers or mass; biopsy obtained - continue PPI + sucralfate - continue ondansetron - continue IV diphenhydramine - QTc 519 ms, corrects to 576 ms, so not using IV erythromycin or PO/IV metoclopramide - small meals, low-fat + low-fiber, nutrition consult - f/u biopsy results, treat H pylori if present ESRD on HD - continue HD as scheduled - Nephrology consulted - schedule changed to MWF anemia of ESRD - VIPUL per Nephrology; continue iron insulin-dependent type 2 diabetes - muna-dose lispro, ADA diet atypical chest pain, resolved - troponins flat, EKG without evidence of acute ischemia - CXR negative - continue Imdur 15 mg daily - negative bilateral venous duplex CAD with recent NSTEMI 08/14/22 - no anginal chest pain currently - EKG nonischemic, troponin flat - continue dual antiplatelet therapy, carvedilol, atorvastatin mood disorder - continue home meds PAD - continue DAPT chronic HFrEF - no acute exacerbation - continue torsemide + carvedilol + losartan VTE ppx: UFH dispo: eventual home In my clinical judgment, the patient requires continued inpatient hospitalization for the following reasons: PO intolerance, hypotension Time Spent With Patient Time: Total time managing care of this patient today ___40_ minutes. Quality Stroke Does the patient have a stroke diagnosis?: No VTE Prior VTE?: No VTE Risk Level:: Medical - moderate - high VTE Device Contraindication: Treatment Not Indicated VTE Drug Contraindication: N/A - Med Ordered
[2022-09-05] MEDS: Heparin Sodium,Porcine 5,000 UNIT/ML VIAL 5000 UNIT SUBCUT ×2 (13:24→23:45)
[2022-09-05 13:30] LABS: Glucose, Whole Blood 113 mg/dL (60-115)
--- NOTE | 2022-09-05 16:08 | PM.PNNEP ---
Subjective Subjective Date of Service: 09/05/22 Interval history: Seen and examined, eventws noted currently on HD Physical Exam Vital Signs: Vital Signs: Last Vital Signs Temp 98.9 F 09/05/22 15:32 Pulse 94 09/05/22 15:32 Resp 17 09/05/22 15:32 BP 164/89 H 09/05/22 15:32 Pulse Ox 97 09/05/22 15:32 O2 Del Method Room Air 09/05/22 15:32 BMI result Body Mass Index 36.0 Const: Other: Constitutional : Awake, interactive, restless Neck : Normal inspection, Supple Cardiovascular : RRR, elevated? JVP, trace lower extremity edema Respiratory : fair bilateral air entry,? basal fine crackles, wheezes or rhonchi Gastrointestinal:? soft, lax, Normal bowel sounds, Non tender Skin : Warm, Dry. PErmacath place clean with no erthyma Neurological : Alert & oriented x3, No focal deficit Objective Data Labs 09/05/22 05:14 09/04/22 10:55 Labs: Laboratory Results - last 24 hr 09/04/22 09/04/22 09/05/22 16:28 19:42 05:14 WBC 4.3 L RBC 2.90 L Hgb 7.7 L Hct 24.8 L MCV 85.5 MCH 26.6 L MCHC 31.0 RDW 18.6 H Plt Count 135 L MPV 11.7 Absolute Nucleated RBC 0.000 Nucleated RBC % (auto) 0.0 POC Glucose 100 85 Blood Type Antibody Screen 09/05/22 09/05/22 09/05/22 05:14 07: 08:13 WBC RBC Hgb Hct MCV MCH MCHC RDW Plt Count MPV Absolute Nucleated RBC Nucleated RBC % (auto) POC Glucose 71 69 Blood Type A Positive Antibody Screen NEGATIVE 09/05/22 09/05/22 08:51 13:15 WBC RBC Hgb Hct MCV MCH MCHC RDW Plt Count MPV Absolute Nucleated RBC Nucleated RBC % (auto) POC Glucose 111 113 Blood Type Antibody Screen Microbiology Microbiology Results: Microbiology 09/04/22 10:55 Blood - Venous Blood Culture - Preliminary No growth after 24 hours. 09/04/22 10:55 Blood - Central Line Blood Culture - Preliminary No growth after 24 hours. Procedures Date of Service Date of Service: 09/05/22 Assessment & Plan Assessment and plan (1) Hypertensive urgency: Status: Resolved (2) End-stage renal disease (ESRD): Status: Resolved Plan ESRD: cont HD TTS GI upset cont on/off probs Nephrogenic anemia MBD of CKD Low BP event: resolved REC: cont HD 3x/wk; w/u for low BP event; d/c planning Time Spent With Patient Time: Total time managing care of this patient today ____ minutes. Progress Note: Quality Stroke Does the patient have a stroke diagnosis?: No
[2022-09-05 16:46] LABS: Glucose, Whole Blood 139 mg/dL (60-115)
--- NOTE | 2022-09-05 20:10 | PC.NURSE ---
Addendum entered by Doreen Naidu RN 09/05/22 20:28: held Coreg this evening,Dr. Lopez notified Original Note: BP low 93/54 pulse 74 much lower than earlier,sat 95 % on 2 l of oxygen,patient requesting Benadryl,Dr. Lopez was notified,ok to administer Benadryl
[2022-09-05] MEDS: Sucralfate Oral Suspension 1 GM/10 ML ORAL.SUSP PO (20:23)
[2022-09-05 20:38] LABS: Glucose, Whole Blood 183 mg/dL (60-115)
[2022-09-05] MEDS: Insulin Lispro 100 UNIT/ML 3 ML VIAL SUBCUT (20:45)
[2022-09-06 03:11] VITALS: BP 130/67; PULSE 80; RESP 18; TEMP 36.3; O2SAT 97
[2022-09-06] MEDS: diphenhydrAMINE HCL 50 MG/ML VIAL 25 MG IVPUSH (04:07)
[2022-09-06] MEDS: HYDROmorphone HCl 0.5 MG/0.5 ML SYRINGE 0.25 MG IVPUSH ×3 (04:08→12:29)
[2022-09-06 07:32] VITALS: BP 119/58; PULSE 81; RESP 19; TEMP 36.6; O2SAT 96
[2022-09-06 07:33] LABS: Glucose, Whole Blood 107 mg/dL (60-115)
[2022-09-06 08:16] VITALS: RESP 18
[2022-09-06] MEDS: Sucralfate Oral Suspension 1 GM/10 ML ORAL.SUSP PO ×2 (08:16→12:29)
[2022-09-06] MEDS: Clopidogrel Bisulfate 75 MG TABLET PO (08:16)
[2022-09-06] MEDS: Lidocaine 4 % Patch ADH..PATCH 1 PATCH TRANSDERMA (08:16)
[2022-09-06] MEDS: Famotidine/PF 20 MG/2 ML VIAL IVPUSH (08:16)
[2022-09-06] MEDS: 0.9 % Sodium Chloride Flush 3 ML SYRINGE IVFLUSH (08:16)
[2022-09-06] MEDS: Omeprazole 40 MG CAPSULE.DR PO (08:16)
[2022-09-06] MEDS: carvediloL 12.5 MG TABLET 25 MG PO (08:16)
[2022-09-06] MEDS: NIFEdipine ER 60 MG TAB.ER.24 PO (08:17)
[2022-09-06] MEDS: Ferrous Sulfate 324 MG TABLET.DR PO (08:17)
[2022-09-06] MEDS: Losartan Potassium 25 MG TABLET PO (08:17)
[2022-09-06] MEDS: Aspirin Enteric Coated 81 MG TABLET.DR PO (08:17)
--- NOTE | 2022-09-06 08:50 | P.DS_ITS ---
DS: Providers Provider Date of Service: 09/06/22 Date of admission: 08/27/22 09:00 Primary care physician: Abdon Beard MD Consults: 08/25/22 21:48 Consult to Nephrology Routine Consulting Provider: Ovidio Walsh Reason for consultation: esrd on hd 08/27/22 09:41 Consult to Gastroenterology Routine Consulting Provider: Rupinder Tapia Reason for consultation: Epigastric pain and nausea for eval and rec. 09/04/22 08:54 Consult to Psychiatry Routine Consulting Provider: Psych Covering Reason for consultation: Refusing most care despite severe illness DS: Diagnosis Discharge Diagnosis (1) Hypertensive urgency: Status: Resolved (2) End-stage renal disease (ESRD): Status: Resolved DS: Summary Hospital Course Hospital Course: Admission note HPI Chief Complaint: nausea/vomiting, chest pain 31-year-old female with pertinent history of essential hypertension, congestive heart failure with reduced ejection fraction, insulin-dependent type 2 diabetes mellitus with diabetic retinopathy, mood disorder, PAD status post transmetatarsal amputation of foot, ESRD recently started on HD during recent hospitalizations for NSTEMI and then readmit for hyperglycemia with discharge 08/23, presented to the ED earlier today for evaluation of nausea, vomiting, and chest pain that started early this morning spontaneously.? She describes a stabbing tightness in the left chest that is pleuritic in nature worse with inspiration.? She states she also has a cough x 1 month and occasional shortness of breath.? States she uses supplemental O2 at baseline at home but is not currently on any oxygen and is maintaining oximetry of 100%.? She states this pain occurs both at rest and with exertion and does not radiate.? She has also been nauseous with vomiting but denies any abdominal pain.? She was recently started on hemodialysis and was scheduled for 1st outpatient session tomorrow.? She has been afebrile. Denies lightheadedness, diaphoresis, palpiations, or retrosternal chest pressure. On arrival, hemodynamically stable. Hypertensive to 175/95, mild tachycardia 91, no fevers or hypoxia.? There is no leukocytosis.? She has a stable normocytic anemia with H/H 9.2/30.0%.? Creatinine 2.84, improved from baseline, BUN 66.? Electrolytes within normal limits.? Initial troponin 62.9, repeat 57.3.? COVID- 19 negative.? CXR negative for any acute cardiopulmonary disease.? EKG shows NSR and right bundle branch block without any ST elevations or depressions.? She reports compliance with medications.? Denies any alcohol use, illicit drug use, or smoking.? In the ED has been given 1 mg Dilaudid, ondansetron 4 mg x 2, 25 mg Benadryl, 1 g Carafate, 10 mg Reglan, and 5 mg oxycodone. Hospital course:Patient with frequent hospitalization for similar presentation and presented on this ocasion with nausea, vomiting and chest pain and symptoms attributed to diabetes gastroparesis. N/V due to gastroparesis - s/p EGD 09/01/[address] Tapia showing 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 and large amounts of food in the stomach, no ulcers or mass; biopsy obtained plan is to continue continue PPI + sucralfate x 2 weeks Due to high QTc 519 ms, corrects to 576 ms, Erythromycin or reglan not used. Further recommendaion include small meals, low-fat + low-fiber. Outpatient GI follow up, H. pylori stain still pending. hypotensive 09/03-09/04 overnight requiring 6 doses of IV albumin and resolved, no evidence of sepsis, cultures pending. hypotension ?cause - pending BCx venous + dialysis line from 09/04 - held antihypertensives but now hypertensive and will resume carvedilol, losartan, and nifedipine; continue to hold Imdur, torsemide, and hydralazine and add back as needed refusal of care - psychiatry consult pending ESRD on HD - continue HD as scheduled - schedule changed to MWF anemia of ESRD - VIPUL per Nephrology; continue iron insulin-dependent type 2 diabetes - muna-dose lispro, ADA diet atypical chest pain, resolved - troponins flat, EKG without evidence of acute ischemia - CXR negative - continue Imdur 15 mg daily - negative bilateral venous duplex CAD with recent NSTEMI 08/14/22 - no anginal chest pain currently - EKG nonischemic, troponin flat - continue dual antiplatelet therapy, carvedilol, atorvastatin mood disorder - continue home meds PAD - continue DAPT chronic HFrEF - no acute exacerbation - continue torsemide + carvedilol + losartan Continue reglan as needed before meals Carafate for 2 weeks Continue Omeprazole Monitor blood pressure readings at home To do dialysis as scheduled. Time Spent with Patient Time attestation: Total time managing care of this patient today ____ minutes. Discharge coordination time: Greater than 30 minutes Quality: Safe Use of Opioids Does Pt have an Active Cancer Diagnosis on the Problem List?: No Quality: Stroke Does the patient have a stroke diagnosis?: No Physical Exam Vital Signs: Vital Signs: Last Vital Signs Temp 97.8 F 09/06/22 07:32 Pulse 81 09/06/22 07:32 Resp 18 09/06/22 08:16 BP 119/58 L 09/06/22 07:32 Pulse Ox 96 09/06/22 07:32 O2 Del Method Room Air 09/06/22 07:32 BMI result Body Mass Index 36.0 DS: Data Data Completed and Pending Labs on day of discharge: Preliminary micro results at discharge 09/04/22 10:55 Blood Culture - Preliminary Blood - Venous No growth after 24 hours. 09/04/22 10:55 Blood Culture - Preliminary Blood - Central Line No growth after 24 hours. Discharge Plan Discharge Anticipated Discharge Date/Time: 09/06/22 08:51 Patient Disposition: Home Health Service Discharge Diagnosis: Uncontrolled hypertension Delayed gastric emptying Referrals: hvns [Other] - 1 Week Abdon Beard MD [Primary Care Provider] - 1 Week Discharge Medications: New metoclopramide HCl 5 mg Tablet 5 mg PO TIDAC PRN (Reason: (Drug) Ingestion) Qty: 90 0RF Continued hydralazine 25 mg tablet 75 mg PO TID docusate sodium 100 mg capsule 100 mg PO DAILY PRN (Reason: constipation) atorvastatin 40 mg Tablet 40 mg PO BEDTIME Qty: 90 0RF clopidogrel 75 mg Tablet 75 mg PO DAILY Qty: 90 0RF aspirin 81 mg Tablet,Delayed Release (Dr/Ec) 81 mg PO DAILY Qty: 90 0RF losartan 25 mg Tablet 25 mg PO DAILY Qty: 90 0RF Protocol: Hold for SBP< HOLD for SBP < : 90 omeprazole 40 mg Capsule,Delayed Release(Dr/Ec) 40 mg PO DAILY@0630 Qty: 90 0RF carvedilol 12.5 mg tablet 12.5 mg PO BID Qty: 120 0RF torsemide 20 mg tablet 40 mg PO BID Qty: 180 0RF nifedipine 60 mg tablet extended release 24hr 60 mg PO DAILY Qty: 90 0RF ferrous fumarate [Ferrocite] 324 mg (106 mg iron) tablet 324 mg PO DAILY Qty: 90 0RF glipizide 2.5 mg tablet extended release 24hr 2.5 mg PO DAILY Qty: 90 0RF No Action metoclopramide HCl 5 mg tablet 5 mg PO DAILY PRN (Reason: nausea and vomiting) Qty: 30 0RF oxycodone 5 mg tablet 5 mg PO Q6H PRN (Reason: severe pain) Qty: 20 0RF ondansetron 4 mg tablet,disintegrating 4 mg PO Q8H PRN (Reason: nausea and vomiting) 5 Days Qty: 12 0RF Discharge Orders: Discharge Order (Routine); Ordered 09/06/22 Ordered By: Contreras Blanton Diet: Advance to usual diet Activity on Discharge: As tolerated Stand Alone Forms: Patient Portal Discharge page Care Plan Goals: Read below Health Concerns: Read below Plan of Treatment: Read below Assessment: You were admitted for elevated blood pressure readings and reported nausea and vomiting treated with dialysis, reglan and acidity medications. images were consistent with gastric emptying delay which is a complication of long standing diabetes. Continue reglan as needed before meals Carafate for 2 weeks Continue Omeprazole Monitor blood pressure readings at home To do dialysis as scheduled. Patient Instructions: Musculoskeletal Pain (ED), Chest Wall Pain (ED), Edema (ED) Discharge Date/Time: 09/06/22 15:19
--- NOTE | 2022-09-06 09:36 | PM.PNNEP ---
Subjective Subjective Date of Service: 09/06/22 Interval history: Seen and examined, eventws noted Physical Exam Vital Signs: Vital Signs: Last Vital Signs Temp 97.8 F 09/06/22 07:32 Pulse 81 09/06/22 07:32 Resp 18 09/06/22 08:16 BP 119/58 L 09/06/22 07:32 Pulse Ox 96 09/06/22 07:32 O2 Del Method Room Air 09/06/22 07:32 BMI result Body Mass Index 36.0 Const: Other: Constitutional : Awake, interactive, restless Neck : Normal inspection, Supple Cardiovascular : RRR, elevated? JVP, trace lower extremity edema Respiratory : fair bilateral air entry,? basal fine crackles, wheezes or rhonchi Gastrointestinal:? soft, lax, Normal bowel sounds, Non tender Skin : Warm, Dry. PErmacath place clean with no erthyma Neurological : Alert & oriented x3, No focal deficit Objective Data Labs 09/05/22 05:14 09/04/22 10:55 Labs: Laboratory Results - last 24 hr 09/05/22 09/05/22 09/05/22 13:15 16:42 20:34 POC Glucose 113 139 H 183 H 09/06/22 07:25 POC Glucose 107 Microbiology Microbiology Results: Microbiology 09/04/22 10:55 Blood - Venous Blood Culture - Preliminary No growth after 24 hours. 09/04/22 10:55 Blood - Central Line Blood Culture - Preliminary No growth after 24 hours. Procedures Date of Service Date of Service: 09/06/22 Assessment & Plan Assessment and plan (1) Hypertensive urgency: Status: Resolved (2) End-stage renal disease (ESRD): Status: Resolved Plan ESRD: cont HD TTS as inpt and switch to mwf as outpt GI upset cont on/off probs Nephrogenic anemia MBD of CKD Low BP event: resolved REC: cont HD 3x/wk; w/u for low BP event; d/c planning Time Spent With Patient Time: Total time managing care of this patient today ____ minutes. Progress Note: Quality Stroke Does the patient have a stroke diagnosis?: No
[2022-09-06 11:24] LABS: Glucose, Whole Blood 144 mg/dL (60-115)
[2022-09-06 12:29] VITALS: RESP 19
[2022-09-06] MEDS: Heparin Sodium,Porcine 5,000 UNIT/ML VIAL 5000 UNIT SUBCUT (12:29)
--- NOTE | 2022-09-06 16:00 | MHC.CM.PN ---
pt dcd dr spring order[facility] requested to specify servcies he is requesting and to do a f2f [facility] notified of my request
== END 2022-09-06 15:19 | disposition home health service (06) | DRG 73 ==
LOC: HO.ED 20:46 → HO.EDOVER 21:49 → HO.S3 22:22
PROVIDERS: Anesthesiology; Emergency Medicine Emergency Medical Services; Family Medicine; Internal Medicine Gastroenterology; Student in an Organized Health Care Education/Training Program; Admitting Provider Physician Assistant; Emergency Provider Student in an Organized Health Care Education/Training Program; PCP Internal Medicine; Visit Provider Internal Medicine
PROC: 0DJ08ZZ Inspection of Upper Intestinal Tract, Via Natural or Artificial Opening Endoscopic (ICD-10-PCS; CPT 43235; principal; 2022-09-01 07:30)
DX: E11.43 Type 2 diabetes mellitus with diabetic autonomic (poly)neuropathy (principal); N18.6 End stage renal disease; I13.2 Hypertensive heart and chronic kidney disease with heart failure and with stage 5 chronic kidney disease, or end stage renal disease; I50.22 Chronic systolic (congestive) heart failure; K31.84 Gastroparesis; E11.22 Type 2 diabetes mellitus with diabetic chronic kidney disease; Z99.2 Dependence on renal dialysis; D63.1 Anemia in chronic kidney disease; E11.649 Type 2 diabetes mellitus with hypoglycemia without coma; E11.51 Type 2 diabetes mellitus with diabetic peripheral angiopathy without gangrene; F39 Unspecified mood [affective] disorder; K22.70 Barrett's esophagus without dysplasia; N25.0 Renal osteodystrophy; I25.10 Atherosclerotic heart disease of native coronary artery without angina pectoris; I95.9 Hypotension, unspecified; I25.2 Old myocardial infarction; Z91.158 Patient's noncompliance with renal dialysis for other reason; Z91.148 Patient's other noncompliance with medication regimen for other reason; Z20.822 Contact with and (suspected) exposure to COVID-19; Z79.02 Long term (current) use of antithrombotics/antiplatelets; Z79.82 Long term (current) use of aspirin; Z79.84 Long term (current) use of oral hypoglycemic drugs; Z79.899 Other long term (current) drug therapy
CPT/HCPCS: 36415; 71045; 74240; 80048; 80053; 81025; 82947; 83605; 83690; 83880; 84484; 85025; 85027; 85610; 85730; 86850; 86900; 86901; 87040; 87635; 88305; 88342; 90999; 92950; 93005; 93308; 93970; 99285; J0131; J0885; J1170; J1200; J1643; J1650; J2212; J2405; J2765; P9047

== ENCOUNTER → 2022-08-25 21:32 | Outpatient (BNV) | payer OTHER, SELFPAY | PROVIDERS: Admitting Provider Physician Assistant; Emergency Provider Student in an Organized Health Care Education/Training Program; Visit Provider Student in an Organized Health Care Education/Training Program | DX: I16.0 Hypertensive urgency (principal); N18.6 End stage renal disease | CPT/HCPCS: 99223; 99232; 99233; 99239; 99499 ==

== ENCOUNTER 2022-08-27 09:00 | Outpatient (BNV) | payer OTHER, SELFPAY | END 2022-09-04 09:26 | PROVIDERS: Admitting Provider Physician Assistant; Emergency Provider Student in an Organized Health Care Education/Training Program; PCP Internal Medicine; Visit Provider Internal Medicine Cardiovascular Disease | DX: R07.89 Other chest pain (principal); R11.2 Nausea with vomiting, unspecified | CPT/HCPCS: 93010; 93308 ==

== ENCOUNTER 2022-09-10 19:13 | Emergency (ER) | payer OTHER, SELFPAY ==
--- NOTE | 2022-09-10 | ECG_ITS ---
Test Reason : chest pain Blood Pressure : / mmHG Vent. Rate : 100 BPM Atrial Rate : 100 BPM P-R Int : 154 ms QRS Dur : 138 ms QT Int : 388 ms P-R-T Axes : 066 -09 052 degrees QTc Int : 500 ms Normal sinus rhythm Possible Left atrial enlargement Right bundle branch block Abnormal ECG When compared with ECG of 04-SEP-2022 09:26, No significant change was found Referred By: Generic ED Physician Electronically Signed By:Vinny Vera
--- NOTE | ~2022-09-10 | CT_ITS ---
EXAMINATION: CT HEAD WITHOUT CONTRAST CLINICAL INFORMATION: Severe headache. COMPARISON: CT head from 08/14/2022. TECHNIQUE: Contiguous axial imaging was performed from the skull base to vertex without intravenous administration of contrast. This CT examination was performed using dose optimization techniques as appropriate, variously including the following: *Automated exposure control. *Adjustment of mA and/or kV according to patient size (this includes techniques or standardized protocols for targeted exams where dose is matched to indication/reason for exam; i.e. extremities or head). *Use of iterative reconstruction technique. DLP: 646 mGy-cm FINDINGS: There is no evidence of acute intracranial hemorrhage or edematous territorial infarction. Ventura-white matter differentiation is preserved. There is no abnormal attenuation within the brain parenchyma. The ventricles are normal in morphology and size. No evidence for obstructive hydrocephalus. No abnormal mass effect or midline shift. No extra-axial fluid collections. No acute soft tissue or osseous abnormalities. The mastoid air cells and visualized paranasal sinuses are clear. Redemonstrated wispy hyperattenuating material within the right greater than left posterior aspects of the globes. CT/CT head/brain wo IV con IMPRESSION: 1. No evidence of acute intracranial hemorrhage or edematous territorial infarction. 2. Redemonstrated sequela of subretinal hemorrhage within the right worse than left globes.
--- NOTE | ~2022-09-10 | XR_ITS ---
EXAMINATION: XR CHEST CLINICAL INFORMATION: Shortness of breath COMPARISON: 08/25/2022 TECHNIQUE: Frontal view of the chest was obtained. FINDINGS: Right IJ port catheter tip in the region of the cavoatrial junction. Slight elevation of the right hemidiaphragm redemonstrated. No focal consolidation is seen. No evidence of pneumothorax or significant pleural effusion. Mildly prominent central vasculature. Prominent cardiac silhouette is similar to prior. No acute osseous findings are seen. XR/XR chest 1V IMPRESSION: Mildly prominent central vasculature without overt edema. Prominent cardiac silhouette, similar to prior.
[2022-09-10 19:25] VITALS: BP 199/114; BP 207/125; PULSE 101; PULSE 103; RESP 20; TEMP 36.6; O2SAT 96; O2SAT 97; BMI 30.1
[2022-09-10 20:03] LABS: MANUAL DIFF FLAG NO
[2022-09-10 20:08] LABS: Basophils Percent Auto 0.6 % (0-2); Eosinophils Absolute Auto 0.1 X10*3/uL (0.0-0.4); Eosinophils Percent Auto 3.8 % (0-4); Hematocrit 26.3 % (37.0-47.0); Hemoglobin 8.1 g/dl (12.0-16.0); Imm Gran Abs Auto 0.02 X10*3/uL (0.00-0.03); Imm Gran Pct Auto 0.6 % (0.0-0.4); Lymphocytes Absolute Auto 0.4 X10*3/uL (1.2-4.9); Lymphocytes Percent Auto 11.8 % (20-40); Mean Corpuscular HGB Conc 30.8 g/dl (31.0-35.0); Mean Corpuscular Volume 84.6 fL (80.0-98.0); Mean Platelet Volume 10.4 fL (9.4-12.3); Monocytes Absolute Auto 0.2 X10*3/uL (0.1-1.2); Monocytes Percent Auto 6.6 % (2-11); Neutrophils Absolute Auto 2.7 x10*3/uL (2.0-8.3); Neutrophils Percent Auto 76.6 % (45-73); Platelet Count 168 X10*3/uL (160-400); Red Blood Count 3.11 X10*6/uL (4.20-5.50); White Blood Count 3.5 X10*3/uL (4.8-10.8)
[2022-09-10 20:49] LABS: Alanine Aminotransferase 9 U/L (0-31); Albumin Level 3.8 g/dL (3.5-5.0); Alkaline Phosphatase 125 U/L (39-117); Anion Gap 16 (12-20); Aspartate Amino Transferase 14 U/L (5-31); Bilirubin Direct 0.7 mg/dL (0.0-0.5); Bilirubin Total 1.3 mg/dL (0.0-1.0); Blood Urea Nitrogen 47 mg/dL (9-16); C Reactive Protein 1.88 mg/dL (< or = 0.50); Calcium 9.5 mg/dL (8.4-10.2); Carbon Dioxide 18 mmol/L (22-29); Chloride 108 mmol/L (96-108); Creatinine Clr Calc Pharmacy 17.2; Estimated Glomerular Filt Rate 10; Glucose Random 108 mg/dL (60-115); Lipase 27 U/L (8-78); Magnesium 2.3 mg/dL (1.6-2.6); Potassium 3.8 mmol/L (3.3-5.1); Sodium 138 mmol/L (135-145); Total Protein 7.3 g/dL (6.5-8.0)
[2022-09-10 21:13] LABS: Erythrocyte Sedimentation Rate 44 MM/HR (0-20)
[2022-09-10 21:14] LABS: HCG Quantitative < 2 mIU/mL
--- NOTE | 2022-09-10 22:07 | ED_ITS ---
HPI - Chest Pain General Chief Complaint: Chest Pain Stated Complaint: SEVERE HEADACHE Time Seen by Provider: 09/10/22 22:06 Source: patient, RN notes reviewed and old records reviewed Mode of arrival: EMS Limitations: no limitations History of Present Illness HPI narrative: 32-year-old female with past medical history significant for end-stage renal disease on dialysis, uncontrolled diabetes, blindness, hypertension presents for evaluation of headache Patient reports that she skipped dialysis 2 days ago because ?I did not feel good. She goes Sunday, Sunday, Sunday and is due tomorrow morning Patient reports she has had a headache for last 2 days with associated nausea and vomiting She feels that she cannot keep anything down She reports her pain is ?12/05. No other complaints or concerns at this time Related Data Home Medications Medication Instructions Recorded Confirmed docusate sodium 100 mg capsule 100 mg PO DAILY PRN constipation 08/13/22 08/25/22 oxycodone 5 mg tablet 5 mg PO Q6H PRN severe pain 08/13/22 08/25/22 prednisone 10 mg tablet See Taper PO 1XD 08/13/22 08/25/22 hydralazine 25 mg tablet 75 mg PO TID 08/25/22 08/25/22 Previous Rx's Medication Instructions Recorded aspirin 81 mg tablet,delayed 81 mg PO DAILY #90 tabs 08/20/22 release atorvastatin 40 mg tablet 40 mg PO BEDTIME #90 tabs 08/20/22 carvedilol 12.5 mg tablet 12.5 mg PO BID #120 tabs 08/20/22 clopidogrel 75 mg tablet 75 mg PO DAILY #90 tabs 08/20/22 ferrous fumarate 324 mg (106 mg 324 mg PO DAILY #90 tabs 08/20/22 iron) tablet (Ferrocite) glipizide 2.5 mg tablet, extended 2.5 mg PO DAILY #90 tabs 08/20/22 release 24 hr losartan 25 mg tablet 25 mg PO DAILY #90 tabs 08/20/22 nifedipine 60 mg tablet,extended 60 mg PO DAILY #90 tabs 08/20/22 release 24 hr omeprazole 40 mg capsule,delayed 40 mg PO DAILY@0630 #90 caps 08/20/22 release torsemide 20 mg tablet 40 mg PO BID #180 tabs 08/20/22 ondansetron HCl 4 mg tablet 4 mg PO Q8H PRN nausea and 08/25/22 vomiting 4 days #7 tabs metoclopramide HCl 5 mg tablet 5 mg PO TIDAC PRN (Drug) Ingestion 08/28/22 #90 tabs sucralfate 1 gram tablet 1 g PO BID #28 tabs 08/28/22 Allergies Allergy/AdvReac Type Severity Reaction Status Date / Time morphine [MORPHINE] Allergy Intermediate Itching Verified 09/10/22 19:39 azithromycin [From Zithromax] Allergy Hives Verified 09/10/22 19:39 gabapentin Allergy Facial Verified 09/10/22 19:39 Swelling tramadol Allergy Facial Verified 09/10/22 19:39 Swelling vancomycin Allergy Hives Verified 09/10/22 19:39 Review of Systems Constitutional: Constitutional: Reports as per HPI, Denies fatigue, Denies fever(s) and Reports headache(s) ENT: Reports headache(s) Cardiovascular: Cardiovascular: Denies chest pain and Denies dyspnea Respiratory: Respiratory: Denies cough and Denies dyspnea Gastrointestinal: Gastrointestinal: Reports abdominal pain, Denies constipation, Reports nausea and Reports vomiting Genitourinary: Genitourinary: Denies dysuria Neurologic: Reports headache(s) and Denies focal weakness Endocrine: Endocrine: Denies fatigue PMFSH Past Medical History Medical History Abnormal finding on echocardiogram Acute dyspnea Acute on chronic systolic and diastolic heart failure, NYHA class 3 Acute worsening of stage 3 chronic kidney disease MYNOR (acute kidney injury) Anemia Anemia in chronic kidney disease (CKD) Asthma Atypical chest pain Back pain Blind right eye Bone infection Cardiomyopathy Cellulitis Cellulitis and abscess of foot delivery delivered Chest pain CHF (congestive heart failure) (~06/07/22) CKD (chronic kidney disease) CKD (chronic kidney disease) CKD (chronic kidney disease) stage 4, GFR 15-29 ml/min Depression with anxiety Diabetes Diabetic retinopathy DM foot ulcer Elevated troponin ESRD needing dialysis Essential hypertension Fever Generalized edema HFrEF (heart failure with reduced ejection fraction) HTN (hypertension) Hypertension (~06/10/22) Metabolic acidosis Migraine Osteomyelitis PAD (peripheral artery disease) Pleural effusion test positive test positive Sepsis Severe anemia Tachycardia Type 2 diabetes mellitus with hyperglycemia, with long-term current use of insul in Surgical History History of transmetatarsal amputation of foot S/P transmetatarsal amputation of foot Family History Family History Mother Coronary artery disease Myocardial infarction Stroke Diabetes mellitus Father Myocardial infarction Social History Social History Household Members: Family Household Members Other:: Sister, [id number], nephew Housing: House Do you presently have visiting nurse or other home services: No Alcohol intake: never Patient Tobacco Use Status: Never used Tobacco Smoked in Last 30 Days: No e-Cigarette/Vaping Use: Never Used Second Hand Smoke Exposure: No Use of substances other than those prescribed or required for medical reasons: No Advance Directives: Yes Advance Directives on File: Yes Advance Directives Date on File: 03/08/20 Patient : No service: No Current occupational status: unemployed and disabled Gender identity: Female Physical Exam Vital Signs: Vital Signs: Last Vital Signs Temp 97.8 F 09/10/22 22:24 Pulse 94 09/10/22 23:18 Resp 16 09/10/22 23:18 BP 183/95 H 09/10/22 23:18 Pulse Ox 98 09/10/22 23:18 O2 Del Method Room Air 09/10/22 23:18 BMI result Body Mass Index 30.1 Const: General: comfortable, alert and awake Nutritional Appearance: well nourished Orientation/consciousness: patient oriented x3 HEENT: Head: Yes normocephalic and Yes atraumatic Throat: Yes posterior or opharynx normal Eyes: Other: Patient has severe overlying cataracts in the right eye with he the cornea. Patient's left pupil is round and reactive to light and accommodation. Periorbital: periorbital findings normal Eyelids: Yes eyelids normal Conjunctivae: abnormal conjunctivae Sclerae: abnormal sclerae Corneas: abnormal corneas Neck: Neck: Yes full ROM Resp: Effort & Inspection: normal respiratory effort, able to speak in complete sentences, no audible wheezes and not labored Auscultation: clear to auscultation bilaterally GI: Inspection: No distended Palpation (GI): Soft to palpation, not firm, nontender, no guarding and not rigid Skin: General skin exam: no rashes or lesions noted and elasticity normal Neuro: General: patient oriented x3 Cranial nerves: Yes CN's II-XII intact bilaterally and Yes Bilaterally intact EOM present Cognition (Neuro): normal cognition Course Reevaluation(s) Reevaluation #1: Patient's blood pressure improved with IV hydralazine. She still complains of a headache after receiving butalbital x2. However her CT scan is unremarkable, neuro exam was unremarkable. Chest x-ray shows no evidence of overt fluid overload. The patient will be discharged to follow-up with her primary doctor and have her dialysis later today as planned. She may use Tylenol for any further headaches Time: 00:33 Medications Administered Discontinued Medications Generic Name Dose Route Start Last Admin Trade Name Freq PRN Reason Stop Dose Admin Acetaminophen/Butalbital/Caffeine 2 tab 09/10/22 22:34 09/10/22 22:41 Butalb/Acetamin/Caff 50/325/40 Tablet PO 09/10/22 22:35 2 tab ONCE ONE Administration Haloperidol Lactate 2.5 mg 09/10/22 23:22 09/10/22 23:45 Haloperidol Lactate 5 Mg/Ml Vial IVPUSH 09/10/22 23:23 2.5 mg STAT STA Administration Hydralazine HCl 10 mg 09/10/22 22:34 09/10/22 22:41 Hydralazine Hcl 20 Mg/Ml Vial IVPUSH 09/10/22 22:35 10 mg ONCE ONE Administration Protocol Ondansetron HCl 4 mg 09/10/22 22:34 09/10/22 22:41 Ondansetron Hcl 4 Mg/2 Ml Vial IVPUSH 09/10/22 22:35 4 mg ONCE ONE Administration Medical Decision Making Medical Decision Making [facility] Narrative: 32-year-old female with multiple comorbidities presents for evaluation of headache. She has had a headache for 2 days associated nausea and vomiting. The patient is noted to be hypertensive at 207/113. She complains of headache that has no neuro deficits. The patient is also nauseous and vomiting. She is a dialysis patient but does not appear volume overloaded, potassium is 3.4 and she does not require emergent dialysis. No tried to treat the patient's hypertension, headache. She had a CT scan the brain pending. Her labs are otherwise consistent with baseline Differential Diagnosis Acute headache Tension headache Cluster headache Hypertension Hypertensive urgency Viral syndrome Gastroenteritis Lab Data MDM Lab Attestation statement: I reviewed the patient's lab results. (Chronic anemia with a hemoglobin of 8.1 and 26.3 likely anemia of chronic disease. Mild leukopenia with a white count of 3.5. Patient's kidney function is elevated to baseline with a BUN of 47 and creatinine of 5.05. Potassium is low normal at 3.8) Chronic anemia with a hemoglobin of 8.1 and 26.3 likely anemia of chronic dis ease. Mild leukopenia with a white count of 3.5. Patient's kidney function is elevated to baseline with a BUN of 47 and creatinine of 5.05. Potassium is low normal at 3.8 09/10/22 19:59 09/10/22 19:59 Labs: Lab Results 09/10/22 09/10/22 09/10/22 Range/Units 19:59 19:59 19:59 WBC 3.5 L (4.8-10.8) X10*3/uL RBC 3.11 L (4.20-5.50) X10*6/uL Hgb 8.1 L (12.0-16.0) g/dl Hct 26.3 L (37.0-47.0) % MCV 84.6 (80.0-98.0) fL MCH 26.0 L (27.0-33.0) pg MCHC 30.8 L (31.0-35.0) g/dl RDW 18.0 H (11.0-16.0) % Plt Count 168 (160-400) X10*3/uL MPV 10.4 (9.4-12.3) fL Immature Gran % (Auto) 0.6 H (0.0-0.4) % Neut % (Auto) 76.6 H (45-73) % Lymph % (Auto) 11.8 L (20-40) % [place] % (Auto) 6.6 (2-11) % Eos % (Auto) 3.8 (0-4) % Baso % (Auto) 0.6 (0-2) % Lymph # (Auto) 0.4 L (1.2-4.9) X10*3/uL [place] # (Auto) 0.2 (0.1-1.2) X10*3/uL Eos # (Auto) 0.1 (0.0-0.4) X10*3/uL Baso # (Auto) 0.0 (0.0-0.2) X10*3/uL Abs Immat Gran (auto) 0.02 (0.00-0.03) X10*3/uL Absolute Neuts (auto) 2.7 (2.0-8.3) x10*3/uL Absolute Nucleated RBC 0.000 (0.0-0.012) X10*3/uL Nucleated RBC % (auto) 0.0 (0.0-0.2) /100WBC ESR 44 H (0-20) MM/HR Sodium 138 (135-145) mmol/L Potassium 3.8 (3.3-5.1) mmol/L Chloride 108 (96-108) mmol/L Carbon Dioxide 18 L (22-29) mmol/L Anion Gap 16 (12-20) BUN 47 H (9-16) mg/dL Creatinine 5.05 H* (0.5-1.4) mg/dL Estim Creat Clear Calc 17.2 Estimated GFR 10 Random Glucose 108 (60-115) mg/dL Calcium 9.5 D (8.4-10.2) mg/dL Magnesium 2.3 (1.6-2.6) mg/dL Total Bilirubin 1.3 H (0.0-1.0) mg/dL Direct Bilirubin 0.7 H (0.0-0.5) mg/dL AST 14 (5-31) U/L ALT 9 (0-31) U/L Alkaline Phosphatase 125 H (39-117) U/L C-Reactive Protein 1.88 H (< or = 0.50) mg/dL Total Protein 7.3 (6.5-8.0) g/dL Albumin 3.8 (3.5-5.0) g/dL Lipase 27 (8-78) U/L Beta HCG, Quant mIU/mL 09/10/22 Range/Units 19:59 WBC (4.8-10.8) X10*3/uL RBC (4.20-5.50) X10*6/uL Hgb (12.0-16.0) g/dl Hct (37.0-47.0) % MCV (80.0-98.0) fL MCH (27.0-33.0) pg MCHC (31.0-35.0) g/dl RDW (11.0-16.0) % Plt Count (160-400) X10*3/uL MPV (9.4-12.3) fL Immature Gran % (Auto) (0.0-0.4) % Neut % (Auto) (45-73) % Lymph % (Auto) (20-40) % [place] % (Auto) (2-11) % Eos % (Auto) (0-4) % Baso % (Auto) (0-2) % Lymph # (Auto) (1.2-4.9) X10*3/uL [place] # (Auto) (0.1-1.2) X10*3/uL Eos # (Auto) (0.0-0.4) X10*3/uL Baso # (Auto) (0.0-0.2) X10*3/uL Abs Immat Gran (auto) (0.00-0.03) X10*3/uL Absolute Neuts (auto) (2.0-8.3) x10*3/uL Absolute Nucleated RBC (0.0-0.012) X10*3/uL Nucleated RBC % (auto) (0.0-0.2) /100WBC ESR (0-20) MM/HR Sodium (135-145) mmol/L Potassium (3.3-5.1) mmol/L Chloride (96-108) mmol/L Carbon Dioxide (22-29) mmol/L Anion Gap (12-20) BUN (9-16) mg/dL Creatinine (0.5-1.4) mg/dL Estim Creat Clear Calc Estimated GFR Random Glucose (60-115) mg/dL Calcium (8.4-10.2) mg/dL Magnesium (1.6-2.6) mg/dL Total Bilirubin (0.0-1.0) mg/dL Direct Bilirubin (0.0-0.5) mg/dL AST (5-31) U/L ALT (0-31) U/L Alkaline Phosphatase (39-117) U/L C-Reactive Protein (< or = 0.50) mg/dL Total Protein (6.5-8.0) g/dL Albumin (3.5-5.0) g/dL Lipase (8-78) U/L Beta HCG, Quant < 2 mIU/mL Independent Interpretation I performed an independent interpretation of an: Plain X-Ray Interpretation: No evidence of acute congestive heart failure Radiology Impression Discussion of test interpretation with radiology: I have reviewed the radiologist's reading. Radiologist Impression: No intracranial hemorrhage, mass effect or calvarial fracture Discharge Plan Discharge Clinical Impression: Acute headache, Hypertension Patient Disposition: Home, Self-Care Instructions: Acute Headache (ED) Additional Instructions: Use Tylenol as needed for any further headaches. Make sure you go to dialysis later today as planned Take all of your prescribed medications as planned Follow-up with your primary doctor Prescriptions: No Action ondansetron HCl 4 mg tablet 4 mg PO Q8H PRN (Reason: nausea and vomiting) 4 Days Qty: 7 0RF hydralazine 25 mg tablet 75 mg PO TID sucralfate 1 gram Tablet 1 g PO BID Qty: 28 0RF metoclopramide HCl 5 mg Tablet 5 mg PO TIDAC PRN (Reason: (Drug) Ingestion) Qty: 90 0RF prednisone 10 mg tablet See Taper PO 1XD Taper: Prednisone 40 mg daily for 7 Days and 0 Hour 30 mg daily for 7 Days and 0 Hour 20 mg daily for 7 Days and 0 Hour 10 mg daily for 7 Days and 0 Hour 5 mg daily for 7 Days Rx Instructions: 08/25 - 1 - 10mg; 08/27 - /8 - 5mg docusate sodium 100 mg capsule 100 mg PO DAILY PRN (Reason: constipation) oxycodone 5 mg tablet 5 mg PO Q6H PRN (Reason: severe pain) atorvastatin 40 mg Tablet 40 mg PO BEDTIME Qty: 90 0RF clopidogrel 75 mg Tablet 75 mg PO DAILY Qty: 90 0RF aspirin 81 mg Tablet,Delayed Release (Dr/Ec) 81 mg PO DAILY Qty: 90 0RF losartan 25 mg Tablet 25 mg PO DAILY Qty: 90 0RF Protocol: Hold for SBP< HOLD for SBP < : 90 omeprazole 40 mg Capsule,Delayed Release(Dr/Ec) 40 mg PO DAILY@0630 Qty: 90 0RF carvedilol 12.5 mg tablet 12.5 mg PO BID Qty: 120 0RF torsemide 20 mg tablet 40 mg PO BID Qty: 180 0RF nifedipine 60 mg tablet extended release 24hr 60 mg PO DAILY Qty: 90 0RF ferrous fumarate [Ferrocite] 324 mg (106 mg iron) tablet 324 mg PO DAILY Qty: 90 0RF glipizide 2.5 mg tablet extended release 24hr 2.5 mg PO DAILY Qty: 90 0RF
[2022-09-10 22:24] VITALS: BP 207/113; PULSE 96; RESP 16; TEMP 36.6; O2SAT 99
[2022-09-10] MEDS: ondansetron HCL 4 MG/2 ML VIAL IVPUSH (22:41)
[2022-09-10] MEDS: hydrALAZINE HCl 20 MG/ML VIAL 10 MG IVPUSH (22:41)
[2022-09-10] MEDS: Butalb/Acetamin/Caff 50/325/40 TABLET 2 TAB PO (22:41)
--- NOTE | 2022-09-10 22:51 | PC.NURSE ---
Pt A&Ox4, reports 12/05 headache constant pressure headache to right side of face x today with N/V. Pt medicated per APR and vomited pills. Provider Indy notified.
[2022-09-10 23:18] VITALS: BP 183/95; PULSE 94; RESP 16; O2SAT 98
[2022-09-10] MEDS: Haloperidol Lactate 5 MG/ML VIAL 2.5 MG IVPUSH (23:45)
--- NOTE | 2022-09-10 23:55 | PC.NURSE ---
Urine sample not obtainable, Pt states I don't make urine .
== END 2022-09-11 00:51 | disposition home or self-care (01) ==
PROVIDERS: Physician Assistant Medical; Emergency Provider Emergency Medicine; PCP Internal Medicine
DX: R51.9 Headache, unspecified (principal); R07.89 Other chest pain; I10 Essential (primary) hypertension; R11.2 Nausea with vomiting, unspecified; Z79.899 Other long term (current) drug therapy
CPT/HCPCS: 36415; 70450; 71045; 80053; 82248; 83690; 83735; 84702; 85025; 85652; 86140; 93005; 96374; 96375; 99285; J2405

== ENCOUNTER → 2022-09-10 19:40 | Outpatient (BNV) | payer OTHER, SELFPAY | PROVIDERS: Emergency Provider Emergency Medicine; PCP Internal Medicine; Visit Provider Internal Medicine Cardiovascular Disease | DX: R94.31 Abnormal electrocardiogram [ECG] [EKG] (principal) | CPT/HCPCS: 93010 ==

== ENCOUNTER 2022-09-15 14:39 | Inpatient (IN) | payer OTHER, SELFPAY ==
[2022-09-15] VITALS (12 sets, daily range): BP systolic 181–232; BP diastolic 99–179; PULSE 92–98; RESP 11–20; TEMP 36.3–37.1; O2SAT 96–100; BMI 50.4
--- NOTE | ~2022-09-15 | XR_ITS ---
EXAMINATION: XR CHEST CLINICAL INFORMATION: Shortness of breath. COMPARISON: Chest radiograph 09/10/2022. TECHNIQUE: Frontal view of the chest was obtained. FINDINGS: Stable prominence of the cardiomediastinal silhouette. Right IJ port catheter tip terminating in the region of the cavoatrial junction. Slightly increased interstitial thickening and haziness in the mid and lower lungs compared to 09/10/2022. No dense consolidation. No pleural effusion or pneumothorax. No displaced osseous fractures. XR/XR chest 1V IMPRESSION: Worsened interstitial thickening. Findings are suggestive of increased pulmonary edema. However, an atypical infectious/inflammatory process cannot be excluded in the appropriate clinical context.
--- NOTE | 2022-09-15 16:23 | ED.GENADULT ---
HPI - General Adult General Chief complaint: General Medical Stated complaint: N/V, general body pain per EMS Time Seen by Provider: 09/15/22 14:50 Source: patient Mode of arrival: EMS Limitations: no limitations History of Present Illness HPI narrative: Patient presents with vomiting and shortness of breath, missed dialysis today. She gets dialysis on Sun, Sun, Sunday. Onset (ago): hour(s) Related Data Home Medications Medication Instructions Recorded Confirmed docusate sodium 100 mg capsule 100 mg PO DAILY PRN constipation 08/13/22 08/25/22 oxycodone 5 mg tablet 5 mg PO Q6H PRN severe pain 08/13/22 08/25/22 prednisone 10 mg tablet See Taper PO 1XD 08/13/22 08/25/22 hydralazine 25 mg tablet 75 mg PO TID 08/25/22 08/25/22 Previous Rx's Medication Instructions Recorded aspirin 81 mg tablet,delayed 81 mg PO DAILY #90 tabs 08/20/22 release atorvastatin 40 mg tablet 40 mg PO BEDTIME #90 tabs 08/20/22 carvedilol 12.5 mg tablet 12.5 mg PO BID #120 tabs 08/20/22 clopidogrel 75 mg tablet 75 mg PO DAILY #90 tabs 08/20/22 ferrous fumarate 324 mg (106 mg 324 mg PO DAILY #90 tabs 08/20/22 iron) tablet (Ferrocite) glipizide 2.5 mg tablet, extended 2.5 mg PO DAILY #90 tabs 08/20/22 release 24 hr losartan 25 mg tablet 25 mg PO DAILY #90 tabs 08/20/22 nifedipine 60 mg tablet,extended 60 mg PO DAILY #90 tabs 08/20/22 release 24 hr omeprazole 40 mg capsule,delayed 40 mg PO DAILY@0630 #90 caps 08/20/22 release torsemide 20 mg tablet 40 mg PO BID #180 tabs 08/20/22 ondansetron HCl 4 mg tablet 4 mg PO Q8H PRN nausea and 08/25/22 vomiting 4 days #7 tabs metoclopramide HCl 5 mg tablet 5 mg PO TIDAC PRN (Drug) Ingestion 08/28/22 #90 tabs sucralfate 1 gram tablet 1 g PO BID #28 tabs 08/28/22 ondansetron 4 mg disintegrating 4 mg PO Q8H PRN nausea and 09/15/22 tablet vomiting 5 days #12 tabs Allergies Allergy/AdvReac Type Severity Reaction Status Date / Time morphine [MORPHINE] Allergy Intermediate Itching Verified 09/10/22 19:39 azithromycin [From Zithromax] Allergy Hives Verified 09/10/22 19:39 gabapentin Allergy Facial Verified 09/10/22 19:39 Swelling tramadol Allergy Facial Verified 09/10/22 19:39 Swelling vancomycin Allergy Hives Verified 09/10/22 19:39 Review of Systems Review of Systems: Yes all other systems are reviewed and are negative Constitutional: Comments: myalgias Cardiovascular: Comments: shortness of breath PMFSH Past Medical History Medical History Abnormal finding on echocardiogram Acute dyspnea Acute on chronic systolic and diastolic heart failure, NYHA class 3 Acute worsening of stage 3 chronic kidney disease MYNOR (acute kidney injury) Anemia Anemia in chronic kidney disease (CKD) Asthma Atypical chest pain Back pain Blind right eye Bone infection Cardiomyopathy Cellulitis Cellulitis and abscess of foot delivery delivered Chest pain CHF (congestive heart failure) (~06/07/22) CKD (chronic kidney disease) CKD (chronic kidney disease) CKD (chronic kidney disease) stage 4, GFR 15-29 ml/min Depression with anxiety Diabetes Diabetic retinopathy DM foot ulcer Elevated troponin ESRD needing dialysis Essential hypertension Fever Generalized edema HFrEF (heart failure with reduced ejection fraction) HTN (hypertension) Hypertension (~06/10/22) Metabolic acidosis Migraine Osteomyelitis PAD (peripheral artery disease) Pleural effusion test positive test positive Sepsis Severe anemia Tachycardia Type 2 diabetes mellitus with hyperglycemia, with long-term current use of insulin Surgical History History of transmetatarsal amputation of foot S/P transmetatarsal amputation of foot Family History Family History Mother Coronary artery disease Myocardial infarction Stroke Diabetes mellitus Father Myocardial infarction Social History Social History Household Members: Family Household Members Other:: Sister, [id number], nephew Housing: House Do you presently have visiting nurse or other home services: No Alcohol intake: never Patient Tobacco Use Status: Never used Tobacco Smoked in Last 30 Days: No e-Cigarette/Vaping Use: Never Used Second Hand Smoke Exposure: No Use of substances other than those prescribed or required for medical reasons: No Advance Directives: Yes Advance Directives on File: Yes Advance Directives Date on File: 03/08/20 service: No Current occupational status: unemployed and disabled Gender identity: Female Physical Exam ED Vital Signs: Vital Signs - 24 hr 09/15/22 14:58 09/15/22 17:02 Temperature 98.7 F Pulse Rate 97 95 Respiratory Rate 18 20 Blood Pressure 199/100 H 195/107 H Pulse Oximetry 100 98 Oxygen Delivery Method Nasal Cannula Oxygen Flow Rate 2 BMI result Body Mass Index 50.4 Const Other: anxious, chronically ill blind Nutritional Appearance: average body habitus Orientation/consciousness: oriented to person and patient oriented x3 Limitations: no limitations HENMT Head: Yes normal to inspection Ears: external ears normal General nose exam: Normal external nose present Mouth: Normal oral and palatal mucosa present and oropharynx normal Throat: Yes posterior oropharynx normal Eyes Other: right eye blind with cataract, left eye blind no cataract Neck Neck: Yes normal visual inspection Chest Chest palpation & inspection: normal inspection of the chest Resp Auscultation: clear to auscultation bilaterally Cardio Jugular venous distension: no JVD Rate: regular rate Rhythm: regular rhythm Heart sounds: S1 normal heart sound present and S2 normal heart sound present GI Inspection: Yes normal to inspection Palpation (GI): Soft to palpation, nontender and No hepatosplenomegaly present Auscultation: normal bowel sounds General: Yes no CVA tenderness Back/Spine/Pelvis Back: no CVA tenderness Skin General skin exam: no rashes or lesions noted Neuro General: oriented to person and patient oriented x3 Cranial nerves: Yes CN's II-XII intact bilaterally Motor exam (neuro): 5/5 motor strength present throughout Extrem Other: left foot with toes amputated, chronic ulcer to sole of foot no evidence of infection, no redness, no drainage Psych Appearance: grossly normal Course Reevaluation(s) Reevaluation #1: patient with no evidence of fluid overload, hyperkalemia. She can wait until Sunday for dialysis. Will give zofran for nausea Time: 17:35 Medications Administered Discontinued Medications Generic Name Dose Route Start Last Admin Trade Name Freq PRN Reason Stop Dose Admin Ondansetron HCl 4 mg 09/15/22 16:26 09/15/22 16:53 Ondansetron Hcl 4 Mg/2 Ml Vial IVPUSH 09/15/22 16:27 4 mg ONCE ONE Administration Medical Decision Making Differential Diagnosis Differential Diagnoses: The differential diagnosis associated with the presentation includes (Infection, fluid overload, hyperkalemia, hyperglycemia, pneumonia aspiration were all considered) Admission/Observation Consideration of admission/observation: Escalation of care including admission/observation considered (Upon arrival this blind diabetic with vascular disease on dialysis was considered for admission upon arrival) Lab Data MDM Lab Attestation statement: I reviewed the patient's lab results. (patients anemia is at baseline, her renal failure is good for her and she is not acidotic or hyperkalemic) 09/15/22 16:48 09/15/22 16:48 Labs: Lab Results 09/15/22 09/15/22 09/15/22 Range/Units 16:48 16:48 16:48 WBC 4.5 L (4.8-10.8) X10*3/uL RBC 2.96 L (4.20-5.50) X10*6/uL Hgb 7.8 L (12.0-16.0) g/dl Hct 25.6 L (37.0-47.0) % MCV 86.5 (80.0-98.0) fL MCH 26.4 L (27.0-33.0) pg MCHC 30.5 L (31.0-35.0) g/dl RDW 18.1 H (11.0-16.0) % Plt Count 195 (160-400) X10*3/uL MPV 11.0 (9.4-12.3) fL Immature Gran % (Auto) 0.2 (0.0-0.4) % Neut % (Auto) 79.4 H (45-73) % Lymph % (Auto) 12.4 L (20-40) % [place] % (Auto) 4.7 (2-11) % Eos % (Auto) 2.9 (0-4) % Baso % (Auto) 0.4 (0-2) % Lymph # (Auto) 0.6 L (1.2-4.9) X10*3/uL [place] # (Auto) 0.2 (0.1-1.2) X10*3/uL Eos # (Auto) 0.1 (0.0-0.4) X10*3/uL Baso # (Auto) 0.0 (0.0-0.2) X10*3/uL Abs Immat Gran (auto) 0.01 (0.00-0.03) X10*3/uL Absolute Neuts (auto) 3.6 (2.0-8.3) x10*3/uL Absolute Nucleated RBC 0.000 (0.0-0.012) X10*3/uL Nucleated RBC % (auto) 0.0 (0.0-0.2) /100WBC Sodium 138 (135-145) mmol/L Potassium 3.9 (3.3-5.1) mmol/L Chloride 105 (96-108) mmol/L Carbon Dioxide 23 (22-29) mmol/L Anion Gap 14 (12-20) BUN 27 H (9-16) mg/dL Creatinine 3.15 H (0.5-1.4) mg/dL Estim Creat Clear Calc 31.8 Estimated GFR 17 Random Glucose 141 H (60-115) mg/dL Calcium 8.5 D (8.4-10.2) mg/dL Magnesium 2.3 (1.6-2.6) mg/dL Total Bilirubin 1.5 H (0.0-1.0) mg/dL AST 23 (5-31) U/L ALT 10 (0-31) U/L Alkaline Phosphatase 97 (39-117) U/L Troponin I High Sens 21.5 H D (<3.5-17.0) ng/L Total Protein 7.3 (6.5-8.0) g/dL Albumin 3.5 (3.5-5.0) g/dL Independent Interpretation I performed an independent interpretation of an: Plain X-Ray (CXR no pneumonia or chf) External Record Review External record reviewed: Outpatient record Prescription Management I considered prescription management with: Antibiotic (no evidence of infection) Chronic Conditions Patient?s care impacted by: Diabetes, Hypertension and Other (renal failure) Social Determinants Patient?s care significantly limited by Social Determinants of Health including: Low income Discharge Plan Discharge Clinical Impression: Vomiting, Diabetes, Renal failure Patient Disposition: Home, Self-Care Instructions: Dialysis Diet (DC) Additional Instructions: Must have dialysis on Sunday, must go to wound care clinic for foot Prescriptions: New ondansetron 4 mg tablet,disintegrating 4 mg PO Q8H PRN (Reason: nausea and vomiting) 5 Days Qty: 12 0RF No Action ondansetron HCl 4 mg tablet 4 mg PO Q8H PRN (Reason: nausea and vomiting) 4 Days Qty: 7 0RF hydralazine 25 mg tablet 75 mg PO TID sucralfate 1 gram Tablet 1 g PO BID Qty: 28 0RF metoclopramide HCl 5 mg Tablet 5 mg PO TIDAC PRN (Reason: (Drug) Ingestion) Qty: 90 0RF prednisone 10 mg tablet See Taper PO 1XD Taper: Prednisone 40 mg daily for 7 Days and 0 Hour 30 mg daily for 7 Days and 0 Hour 20 mg daily for 7 Days and 0 Hour 10 mg daily for 7 Days and 0 Hour 5 mg daily for 7 Days Rx Instructions: 08/25 - 08/26 - 10mg; 08/27 - 09/02 - 5mg docusate sodium 100 mg capsule 100 mg PO DAILY PRN (Reason: constipation) oxycodone 5 mg tablet 5 mg PO Q6H PRN (Reason: severe pain) atorvastatin 40 mg Tablet 40 mg PO BEDTIME Qty: 90 0RF clopidogrel 75 mg Tablet 75 mg PO DAILY Qty: 90 0RF aspirin 81 mg Tablet,Delayed Release (Dr/Ec) 81 mg PO DAILY Qty: 90 0RF losartan 25 mg Tablet 25 mg PO DAILY Qty: 90 0RF Protocol: Hold for SBP< HOLD for SBP < : 90 omeprazole 40 mg Capsule,Delayed Release(Dr/Ec) 40 mg PO DAILY@0630 Qty: 90 0RF carvedilol 12.5 mg tablet 12.5 mg PO BID Qty: 120 0RF torsemide 20 mg tablet 40 mg PO BID Qty: 180 0RF nifedipine 60 mg tablet extended release 24hr 60 mg PO DAILY Qty: 90 0RF ferrous fumarate [Ferrocite] 324 mg (106 mg iron) tablet 324 mg PO DAILY Qty: 90 0RF glipizide 2.5 mg tablet extended release 24hr 2.5 mg PO DAILY Qty: 90 0RF Referrals: Abdon Beard MD [Primary Care Provider] - 5 days [facility] [Provider Group] - 3 days
--- NOTE | 2022-09-15 16:25 | ECG_ITS ---
Test Reason : CHEST PAIN Blood Pressure : / mmHG Vent. Rate : 092 BPM Atrial Rate : 092 BPM P-R Int : 166 ms QRS Dur : 142 ms QT Int : 406 ms P-R-T Axes : 077 006 085 degrees QTc Int : 502 ms Normal sinus rhythm Right bundle branch block Abnormal ECG When compared with ECG of 10-SEP-2022 19:40, T wave inversion more evident in Anterior leads Referred By: Kareem Kilgore Electronically Signed By:Vinny Vera
[2022-09-15 16:53] LABS: MANUAL DIFF FLAG NO
[2022-09-15] MEDS: ondansetron HCL 4 MG/2 ML VIAL IVPUSH (16:53)
[2022-09-15 17:01] LABS: Basophils Percent Auto 0.4 % (0-2); Eosinophils Absolute Auto 0.1 X10*3/uL (0.0-0.4); Eosinophils Percent Auto 2.9 % (0-4); Hematocrit 25.6 % (37.0-47.0); Hemoglobin 7.8 g/dl (12.0-16.0); Imm Gran Abs Auto 0.01 X10*3/uL (0.00-0.03); Imm Gran Pct Auto 0.2 % (0.0-0.4); Lymphocytes Absolute Auto 0.6 X10*3/uL (1.2-4.9); Lymphocytes Percent Auto 12.4 % (20-40); Mean Corpuscular HGB Conc 30.5 g/dl (31.0-35.0); Mean Corpuscular Hemoglobin 26.4 pg (27.0-33.0); Mean Corpuscular Volume 86.5 fL (80.0-98.0); Monocytes Absolute Auto 0.2 X10*3/uL (0.1-1.2); Monocytes Percent Auto 4.7 % (2-11); Neutrophils Absolute Auto 3.6 x10*3/uL (2.0-8.3); Neutrophils Percent Auto 79.4 % (45-73); Platelet Count 195 X10*3/uL (160-400); Red Blood Count 2.96 X10*6/uL (4.20-5.50); Red Cell Distribution Width 18.1 % (11.0-16.0); White Blood Count 4.5 X10*3/uL (4.8-10.8)
[2022-09-15 17:11] LABS: Alanine Aminotransferase 10 U/L (0-31); Albumin Level 3.5 g/dL (3.5-5.0); Alkaline Phosphatase 97 U/L (39-117); Anion Gap 14 (12-20); Aspartate Amino Transferase 23 U/L (5-31); Bilirubin Total 1.5 mg/dL (0.0-1.0); Blood Urea Nitrogen 27 mg/dL (9-16); Calcium 8.5 mg/dL (8.4-10.2); Carbon Dioxide 23 mmol/L (22-29); Chloride 105 mmol/L (96-108); Creatinine Clr Calc Pharmacy 31.8; Estimated Glomerular Filt Rate 17; Glucose Random 141 mg/dL (60-115); Magnesium 2.3 mg/dL (1.6-2.6); Potassium 3.9 mmol/L (3.3-5.1); Sodium 138 mmol/L (135-145); Total Protein 7.3 g/dL (6.5-8.0)
[2022-09-15 17:18] LABS: Troponin-I High Sensitivity 21.5 ng/L (<3.5-17.0)
[2022-09-15 17:42] LABS: IDNOW Serial# 08D9AD1C
[2022-09-15 17:43] LABS: COVID-19 Test Negative (Negative); IDNOW Serial# BCCEAD1C; Influenza A Negative (Negative); Influenza B2 Negative (Negative)
[2022-09-15] MEDS: Labetalol HCL 100 MG/20 ML VIAL 10 MG IVPUSH ×2 (18:13→21:24)
--- NOTE | 2022-09-15 18:38 | PC.NURSE ---
Pt awaiting d/c pending improved BP. Labetalol given, effect pending. Wound to left foot, cleaned with bandaid applied, wound clean around, no drainage, circular, red wound bed.
--- NOTE | 2022-09-15 21:18 | ED.GENADULT ---
HPI - General Adult General Chief complaint: General Medical Stated complaint: N/V, general body pain per EMS Time Seen by Provider: 09/15/22 14:50 Source: patient Mode of arrival: EMS Limitations: no limitations History of Present Illness HPI narrative: Patient comes to emergency room complaining of flu-like symptoms and diffuse body aches P Related Data Home Medications Medication Instructions Recorded Confirmed docusate sodium 100 mg capsule 100 mg PO DAILY PRN constipation 08/13/22 08/25/22 oxycodone 5 mg tablet 5 mg PO Q6H PRN severe pain 08/13/22 08/25/22 prednisone 10 mg tablet See Taper PO 1XD 08/13/22 08/25/22 hydralazine 25 mg tablet 75 mg PO TID 08/25/22 08/25/22 Previous Rx's Medication Instructions Recorded aspirin 81 mg tablet,delayed 81 mg PO DAILY #90 tabs 08/20/22 release atorvastatin 40 mg tablet 40 mg PO BEDTIME #90 tabs 08/20/22 carvedilol 12.5 mg tablet 12.5 mg PO BID #120 tabs 08/20/22 clopidogrel 75 mg tablet 75 mg PO DAILY #90 tabs 08/20/22 ferrous fumarate 324 mg (106 mg 324 mg PO DAILY #90 tabs 08/20/22 iron) tablet (Ferrocite) glipizide 2.5 mg tablet, extended 2.5 mg PO DAILY #90 tabs 08/20/22 release 24 hr losartan 25 mg tablet 25 mg PO DAILY #90 tabs 08/20/22 nifedipine 60 mg tablet,extended 60 mg PO DAILY #90 tabs 08/20/22 release 24 hr omeprazole 40 mg capsule,delayed 40 mg PO DAILY@0630 #90 caps 08/20/22 release torsemide 20 mg tablet 40 mg PO BID #180 tabs 08/20/22 ondansetron HCl 4 mg tablet 4 mg PO Q8H PRN nausea and 08/25/22 vomiting 4 days #7 tabs metoclopramide HCl 5 mg tablet 5 mg PO TIDAC PRN (Drug) Ingestion 08/28/22 #90 tabs sucralfate 1 gram tablet 1 g PO BID #28 tabs 08/28/22 ondansetron 4 mg disintegrating 4 mg PO Q8H PRN nausea and 09/15/22 tablet vomiting 5 days #12 tabs Allergies Allergy/AdvReac Type Severity Reaction Status Date / Time morphine [MORPHINE] Allergy Intermediate Itching Verified 09/10/22 19:39 azithromycin [From Zithromax] Allergy Hives Verified 09/10/22 19:39 gabapentin Allergy Facial Verified 09/10/22 19:39 Swelling tramadol Allergy Facial Verified 09/10/22 19:39 Swelling vancomycin Allergy Hives Verified 09/10/22 19:39 PMFSH Past Medical History Medical History Abnormal finding on echocardiogram Acute dyspnea Acute on chronic systolic and diastolic heart failure, NYHA class 3 Acute worsening of stage 3 chronic kidney disease MYNOR (acute kidney injury) Anemia Anemia in chronic kidney disease (CKD) Asthma Atypical chest pain Back pain Blind right eye Bone infection Cardiomyopathy Cellulitis Cellulitis and abscess of foot delivery delivered Chest pain CHF (congestive heart failure) (~06/07/22) CKD (chronic kidney disease) CKD (chronic kidney disease) CKD (chronic kidney disease) stage 4, GFR 15-29 ml/min Depression with anxiety Diabetes Diabetic retinopathy DM foot ulcer Elevated troponin ESRD needing dialysis Essential hypertension Fever Generalized edema HFrEF (heart failure with reduced ejection fraction) HTN (hypertension) Hypertension (~06/10/22) Metabolic acidosis Migraine Osteomyelitis PAD (peripheral artery disease) Pleural effusion test positive test positive Sepsis Severe anemia Tachycardia Type 2 diabetes mellitus with hyperglycemia, with long-term current use of insulin Surgical History History of transmetatarsal amputation of foot S/P transmetatarsal amputation of foot Family History Family History Mother Coronary artery disease Myocardial infarction Stroke Diabetes mellitus Father Myocardial infarction Social History Social History Household Members: Family Household Members Other:: Sister, [id number], nephew Housing: House Do you presently have visiting nurse or other home services: No Alcohol intake: never Patient Tobacco Use Status: Never used Tobacco Smoked in Last 30 Days: No e-Cigarette/Vaping Use: Never Used Second Hand Smoke Exposure: No Use of substances other than those prescribed or required for medical reasons: No Advance Directives: Yes Advance Directives on File: Yes Advance Directives Date on File: 03/08/20 service: No Current occupational status: unemployed and disabled Gender identity: Female Physical Exam ED Vital Signs: Vital Signs - 24 hr 09/15/22 14:58 09/15/22 17:02 09/15/22 18:13 Temperature 98.7 F Pulse Rate 97 95 94 Respiratory Rate 18 20 16 Blood Pressure 199/100 H 195/107 H 181/119 H Pulse Oximetry 100 98 Oxygen Delivery Method Nasal Cannula Oxygen Flow Rate 2 09/15/22 18:37 09/15/22 19:25 09/15/22 20:09 Temperature 98.1 F Pulse Rate 92 93 94 Respiratory Rate 20 16 16 Blood Pressure 198/107 H 189/99 H 212/115 H Pulse Oximetry 97 98 Oxygen Delivery Method Room Air Room Air Oxygen Flow Rate 09/15/22 21:07 09/15/22 21:27 09/15/22 22:02 Temperature Pulse Rate 96 94 94 Respiratory Rate 17 11 L 19 Blood Pressure 229/128 H 227/153 H 232/135 H Pulse Oximetry 98 96 96 Oxygen Delivery Method Room Air Room Air Room Air Oxygen Flow Rate 09/15/22 22:42 09/15/22 23:28 Temperature 97.3 F Pulse Rate 96 95 Respiratory Rate 15 14 Blood Pressure 223/136 H 205/179 H Pulse Oximetry 96 98 Oxygen Delivery Method Room Air Room Air Nasal Cannula Oxygen Flow Rate 2 BMI result Body Mass Index 50.4 Medications Administered Discontinued Medications Generic Name Dose Route Start Last Admin Trade Name Freq PRN Reason Stop Dose Admin Labetalol HCl 10 mg 09/15/22 18:03 09/15/22 18:13 Labetalol Hcl 100 Mg/20 Ml Vial IVPUSH 09/15/22 18:04 10 mg ONCE ONE Administration Labetalol HCl 10 mg 09/15/22 21:17 09/15/22 21:24 Labetalol Hcl 100 Mg/20 Ml Vial IVPUSH 09/15/22 21:18 10 mg ONCE ONE Administration Ondansetron HCl 4 mg 09/15/22 16:26 09/15/22 16:53 Ondansetron Hcl 4 Mg/2 Ml Vial IVPUSH 09/15/22 16:27 4 mg ONCE ONE Administration Medical Decision Making Medical Decision Making MDM Narrative: -21:15: I was just informed by the patient's nurse that the patient had been discharged earlier today but the patient refused to leave because her blood pressure was elevated. Patient was given 10 mg of labetalol, patient's blood pressure is 229/128. Patient being given 2nd dose of labetalol. Patient's heart rate 96 -patient received a 2nd dose of labetalol, blood pressure did not improve significantly, now 205 systolic. Patient getting IV hydralazine. I discussed the patient with Dr. Sewell, patient being admitted. Differential Diagnosis Differential Diagnoses: The differential diagnosis associated with the presentation includes Lab Data 09/15/22 16:48 09/15/22 16:48 Labs: Lab Results 09/15/22 09/15/22 09/15/22 Range/Units 16:48 16:48 16:48 WBC 4.5 L (4.8-10.8) X10*3/uL RBC 2.96 L (4.20-5.50) X10*6/uL Hgb 7.8 L (12.0-16.0) g/dl Hct 25.6 L (37.0-47.0) % MCV 86.5 (80.0-98.0) fL MCH 26.4 L (27.0-33.0) pg MCHC 30.5 L (31.0-35.0) g/dl RDW 18.1 H (11.0-16.0) % Plt Count 195 (160-400) X10*3/uL MPV 11.0 (9.4-12.3) fL Immature Gran % (Auto) 0.2 (0.0-0.4) % Neut % (Auto) 79.4 H (45-73) % Lymph % (Auto) 12.4 L (20-40) % [place] % (Auto) 4.7 (2-11) % Eos % (Auto) 2.9 (0-4) % Baso % (Auto) 0.4 (0-2) % Lymph # (Auto) 0.6 L (1.2-4.9) X10*3/uL [place] # (Auto) 0.2 (0.1-1.2) X10*3/uL Eos # (Auto) 0.1 (0.0-0.4) X10*3/uL Baso # (Auto) 0.0 (0.0-0.2) X10*3/uL Abs Immat Gran (auto) 0.01 (0.00-0.03) X10*3/uL Absolute Neuts (auto) 3.6 (2.0-8.3) x10*3/uL Absolute Nucleated RBC 0.000 (0.0-0.012) X10*3/uL Nucleated RBC % (auto) 0.0 (0.0-0.2) /100WBC Sodium 138 (135-145) mmol/L Potassium 3.9 (3.3-5.1) mmol/L Chloride 105 (96-108) mmol/L Carbon Dioxide 23 (22-29) mmol/L Anion Gap 14 (12-20) BUN 27 H (9-16) mg/dL Creatinine 3.15 H (0.5-1.4) mg/dL Estim Creat Clear Calc 31.8 Estimated GFR 17 Random Glucose 141 H (60-115) mg/dL Calcium 8.5 D (8.4-10.2) mg/dL Magnesium 2.3 (1.6-2.6) mg/dL Total Bilirubin 1.5 H (0.0-1.0) mg/dL AST 23 (5-31) U/L ALT 10 (0-31) U/L Alkaline Phosphatase 97 (39-117) U/L Troponin I High Sens (<3.5-17.0) ng/L Total Protein 7.3 (6.5-8.0) g/dL Albumin 3.5 (3.5-5.0) g/dL COVID-19 ([facility]) (Negative) COVID-19 Clin Com Influenza Type A ([facility]) Negative (Negative) Influenza Type B ([facility]) Negative (Negative) Influenza A & B Note See Note 09/15/22 09/15/22 Range/Units 16:48 16:48 WBC (4.8-10.8) X10*3/uL RBC (4.20-5.50) X10*6/uL Hgb (12.0-16.0) g/dl Hct (37.0-47.0) % MCV (80.0-98.0) fL MCH (27.0-33.0) pg MCHC (31.0-35.0) g/dl RDW (11.0-16.0) % Plt Count (160-400) X10*3/uL MPV (9.4-12.3) fL Immature Gran % (Auto) (0.0-0.4) % Neut % (Auto) (45-73) % Lymph % (Auto) (20-40) % [place] % (Auto) (2-11) % Eos % (Auto) (0-4) % Baso % (Auto) (0-2) % Lymph # (Auto) (1.2-4.9) X10*3/uL [place] # (Auto) (0.1-1.2) X10*3/uL Eos # (Auto) (0.0-0.4) X10*3/uL Baso # (Auto) (0.0-0.2) X10*3/uL Abs Immat Gran (auto) (0.00-0.03) X10*3/uL Absolute Neuts (auto) (2.0-8.3) x10*3/uL Absolute Nucleated RBC (0.0-0.012) X10*3/uL Nucleated RBC % (auto) (0.0-0.2) /100WBC Sodium (135-145) mmol/L Potassium (3.3-5.1) mmol/L Chloride (96-108) mmol/L Carbon Dioxide (22-29) mmol/L Anion Gap (12-20) BUN (9-16) mg/dL Creatinine (0.5-1.4) mg/dL Estim Creat Clear Calc Estimated GFR Random Glucose (60-115) mg/dL Calcium (8.4-10.2) mg/dL Magnesium (1.6-2.6) mg/dL Total Bilirubin (0.0-1.0) mg/dL AST (5-31) U/L ALT (0-31) U/L Alkaline Phosphatase (39-117) U/L Troponin I High Sens 21.5 H D (<3.5-17.0) ng/L Total Protein (6.5-8.0) g/dL Albumin (3.5-5.0) g/dL COVID-19 ([facility]) Negative (Negative) COVID-19 Clin Com See Note Influenza Type A ([facility]) (Negative) Influenza Type B ([facility]) (Negative) Influenza A & B Note Discharge Plan Discharge Clinical Impression: Vomiting, Diabetes, Renal failure Patient Disposition: Home, Self-Care Instructions: Dialysis Diet (DC) Additional Instructions: Must have dialysis on Sunday, must go to wound care clinic for foot Prescriptions: New ondansetron 4 mg tablet,disintegrating 4 mg PO Q8H PRN (Reason: nausea and vomiting) 5 Days Qty: 12 0RF No Action ondansetron HCl 4 mg tablet 4 mg PO Q8H PRN (Reason: nausea and vomiting) 4 Days Qty: 7 0RF hydralazine 25 mg tablet 75 mg PO TID sucralfate 1 gram Tablet 1 g PO BID Qty: 28 0RF metoclopramide HCl 5 mg Tablet 5 mg PO TIDAC PRN (Reason: (Drug) Ingestion) Qty: 90 0RF prednisone 10 mg tablet See Taper PO 1XD Taper: Prednisone 40 mg daily for 7 Days and 0 Hour 30 mg daily for 7 Days and 0 Hour 20 mg daily for 7 Days and 0 Hour 10 mg daily for 7 Days and 0 Hour 5 mg daily for 7 Days Rx Instructions: 08/25 - 08/26 - 10mg; 08/27 - 8 - 5mg docusate sodium 100 mg capsule 100 mg PO DAILY PRN (Reason: constipation) oxycodone 5 mg tablet 5 mg PO Q6H PRN (Reason: severe pain) atorvastatin 40 mg Tablet 40 mg PO BEDTIME Qty: 90 0RF clopidogrel 75 mg Tablet 75 mg PO DAILY Qty: 90 0RF aspirin 81 mg Tablet,Delayed Release (Dr/Ec) 81 mg PO DAILY Qty: 90 0RF losartan 25 mg Tablet 25 mg PO DAILY Qty: 90 0RF Protocol: Hold for SBP< HOLD for SBP < : 90 omeprazole 40 mg Capsule,Delayed Release(Dr/Ec) 40 mg PO DAILY@0630 Qty: 90 0RF carvedilol 12.5 mg tablet 12.5 mg PO BID Qty: 120 0RF torsemide 20 mg tablet 40 mg PO BID Qty: 180 0RF nifedipine 60 mg tablet extended release 24hr 60 mg PO DAILY Qty: 90 0RF ferrous fumarate [Ferrocite] 324 mg (106 mg iron) tablet 324 mg PO DAILY Qty: 90 0RF glipizide 2.5 mg tablet extended release 24hr 2.5 mg PO DAILY Qty: 90 0RF Referrals: [facility] [place] [facility] [Provider Group] - 3 days Abdon Beard MD [Primary Care Provider] - 5 days
[2022-09-16] VITALS (9 sets, daily range): BP systolic 132–208; BP diastolic 80–120; PULSE 89–102; RESP 10–24; TEMP 36–36.9; O2SAT 94–100; BMI 33.4
--- NOTE | 2022-09-16 00:05 | P.HPHOSP_ITS ---
History of Present Illness Date of Service: 09/16/22 Chief Complaint: Nausea/vomiting This is a 31-year-old female with pertinent history of essential hypertension, congestive heart failure with reduced ejection fraction, insulin-dependent type 2 diabetes mellitus with diabetic retinopathy, mood disorder, PAD status post transmetatarsal amputation of foot, ESRD on HD, diabetic gastroparesis, chronic hypoxemic respiratory failure who presents to the emergency department for evaluation of nausea/vomiting, elevated blood pressure and dyspnea.? Patient was recently admitted and discharged on 09/06 with gastroparesis. Patient states that her blood pressure was found to be elevated when she went for hemodialysis on Sunday. Patient has been having nausea and multiple episodes of nonbloody emesis on the day of presentation. She missed her hemodialysis session. Also complains of dyspnea. She states that she has been compliant with her p.o. medications and her blood pressure does not seem to come down. She denies fever, chills, chest discomfort, palpitation, abdominal pain, changes in bowel habits In the emergency department, patient's blood pressure found to be significantly elevated. Imaging with interstitial pulmonary edema Review of Systems Constitutional: Constitutional: Reports fatigue Cardiovascular: Cardiovascular: Reports dyspnea on exertion Respiratory: Respiratory: Reports dyspnea on exertion Gastrointestinal: Gastrointestinal: Reports nausea and Reports vomiting Genitourinary: Genitourinary: Reports no additional female genitourinary complaints Endocrine: Endocrine: Reports fatigue [facility] Medical History (Updated 09/16/22 @ 00:35 by Alejandra Sewell MD) Abnormal finding on echocardiogram Acute dyspnea Acute on chronic systolic and diastolic heart failure, NYHA class 3 Acute worsening of stage 3 chronic kidney disease MYNOR (acute kidney injury) Anemia Anemia in chronic kidney disease (CKD) Asthma Atypical chest pain Back pain Blind right eye Bone infection Cardiomyopathy Cellulitis Cellulitis and abscess of foot delivery delivered Chest pain CHF (congestive heart failure) (~06/07/22) CKD (chronic kidney disease) CKD (chronic kidney disease) CKD (chronic kidney disease) stage 4, GFR 15-29 ml/min Depression with anxiety Diabetes Diabetic retinopathy DM foot ulcer Elevated troponin ESRD needing dialysis Essential hypertension Fever Generalized edema HFrEF (heart failure with reduced ejection fraction) HTN (hypertension) Hypertension (~06/10/22) Metabolic acidosis Migraine Osteomyelitis PAD (peripheral artery disease) Pleural effusion test positive test positive Sepsis Severe anemia Tachycardia Type 2 diabetes mellitus with hyperglycemia, with long-term current use of insulin Family History Mother Coronary artery disease Myocardial infarction Stroke Diabetes mellitus Father Myocardial infarction Surgical History History of transmetatarsal amputation of foot S/P transmetatarsal amputation of foot Social History Household Members: Family Household Members Other:: Sister, [id number], nephew Housing: House Do you presently have visiting nurse or other home services: No Alcohol intake: never Patient Tobacco Use Status: Never used Tobacco Smoked in Last 30 Days: No e-Cigarette/Vaping Use: Never Used Second Hand Smoke Exposure: No Use of substances other than those prescribed or required for medical reasons: No Advance Directives: Yes Advance Directives on File: Yes Advance Directives Date on File: 03/08/20 service: No Current occupational status: unemployed and disabled Gender identity: Female Meds Allergies Allergy/AdvReac Type Severity Reaction Status Date / Time morphine [MORPHINE] Allergy Intermediate Itching Verified 09/10/22 19:39 azithromycin [From Zithromax] Allergy Hives Verified 09/10/22 19:39 gabapentin Allergy Facial Verified 09/10/22 19:39 Swelling tramadol Allergy Facial Verified 09/10/22 19:39 Swelling vancomycin Allergy Hives Verified 09/10/22 19:39 Active Medications: Current Medications Nitroglycerin (Nitroglycerin 2 % Oint 1 Gm Packet) 1 inch TRANSDERMA ONCE ONE Stop: 09/16/22 00:05 Home Medications Medication Instructions Recorded Confirmed Last Taken Type docusate sodium 100 mg capsule 100 mg PO DAILY PRN constipation 08/13/22 08/25/22 Unknown History oxycodone 5 mg tablet 5 mg PO Q6H PRN severe pain 08/13/22 08/25/22 Unknown History prednisone 10 mg tablet See Taper PO 1XD 08/13/22 08/25/22 08/24/22 History hydralazine 25 mg tablet 75 mg PO TID 08/25/22 08/25/22 08/24/22 History Physical Exam Vital Signs and Narrative: Vital Signs: Last Vital Signs Temp 97.3 F 09/15/22 23:28 Pulse 95 09/15/22 23:28 Resp 14 09/15/22 23:28 BP 205/179 H 09/15/22 23:28 Pulse Ox 98 09/15/22 23:28 O2 Del Method Room Air, Nasal C annula 09/15/22 23:28 O2 Flow Rate 2 09/15/22 23:28 Oxygen Flow Rate 2 09/15/22 14:58 BMI result Body Mass Index 50.4 Middle-aged female lying in bed on supplemental oxygen Neck supple Regular rate and rhythm, S1-S2 heard Bilateral crackles without wheezing Abdomen soft nontender, no guarding, no rigidity Patient is awake, alert and oriented to self, place, time and person ; no focal motor deficit Psych: Normal mood Extremity: Bilateral transmetatarsal amputation Results Labs 09/15/22 16:48 09/15/22 16:48 Labs: Laboratory Results - last 24 hr 09/15/22 09/15/22 09/15/22 16:48 16:48 16:48 MCV 86.5 MCH 26.4 L MCHC 30.5 L RDW 18.1 H Plt Count 195 MPV 11.0 Immature Gran % (Auto) 0.2 Neut % (Auto) 79.4 H Lymph % (Auto) 12.4 L [place] % (Auto) 4.7 Eos % (Auto) 2.9 Baso % (Auto) 0.4 Lymph # (Auto) 0.6 L [place] # (Auto) 0.2 Eos # (Auto) 0.1 Baso # (Auto) 0.0 Abs Immat Gran (auto) 0.01 Absolute Neuts (auto) 3.6 Absolute Nucleated RBC 0.000 Nucleated RBC % (auto) 0.0 Anion Gap 14 Estim Creat Clear Calc 31.8 Estimated GFR 17 Random Glucose 141 H Calcium 8.5 D Magnesium 2.3 Total Bilirubin 1.5 H AST 23 ALT 10 Alkaline Phosphatase 97 Troponin I High Sens Total Protein 7.3 Albumin 3.5 COVID-19 (CARO) COVID-19 Clin Com Influenza Type A (MILTON) Negative Influenza Type B (MILTON) Negative Influenza A & B Note See Note 09/15/22 09/15/22 16:48 16:48 MCV MCH MCHC RDW Plt Count MPV Immature Gran % (Auto) Neut % (Auto) Lymph % (Auto) [place] % (Auto) Eos % (Auto) Baso % (Auto) Lymph # (Auto) [place] # (Auto) Eos # (Auto) Baso # (Auto) Abs Immat Gran (auto) Absolute Neuts (auto) Absolute Nucleated RBC Nucleated RBC % (auto) Anion Gap Estim Creat Clear Calc Estimated GFR Random Glucose Calcium Magnesium Total Bilirubin AST ALT Alkaline Phosphatase Troponin I High Sens 21.5 H D Total Protein Albumin COVID-19 (CARO) Negative COVID-19 Clin Com See Note Influenza Type A (MILTON) Influenza Type B (MILTON) Influenza A & B Note Imaging Radiologist's Impressions: Impressions Chest X-Ray 09/15/22 16:55 IMPRESSION: Worsened interstitial thickening. Findings are suggestive of increased pulmonary edema. However, an atypical infectious/inflammatory process cannot be excluded in the appropriate clinical context. Assessment and Plan (1) Hypertensive emergency: Status: Acute (2) Acute on chronic systolic and diastolic heart failure, NYHA class 3: Status: Acute Plan This is a 31-year-old female with pertinent history of essential hypertension, congestive heart failure with reduced ejection fraction, insulin-dependent type 2 diabetes mellitus with diabetic retinopathy, mood disorder, PAD status post transmetatarsal amputation of foot, ESRD on HD, diabetic gastroparesis, chronic hypoxemic respiratory failure who presents to the emergency department for evaluation of nausea/vomiting, elevated blood pressure and dyspnea. #.? Hypertensive emergency, questionable compliance with medications. Will admit patient with telemetry. Initiating IV p.r.n. antihypertensives. Also ordered nitro patch. Consulting Cardiology #.? Acute on chronic congestive heart failure with reduced ejection fraction in the setting of above and missed hemodialysis session. Initiating IV furosemide, transition to p.o. torsemide once euvolemia is achieved. On beta-mohamud and ARB #. Nausea/vomiting likely related to hypertensive emergency. Also has diabetic gastroparesis. On Reglan before meals #.? ESRD on HD:?Consulted nephrology, appreciate assistance. #.? Insulin-dependent type 2 diabetes mellitus. Initiating Accu-Cheks with sliding scale insulin #.? Chronic normocytic anemia #.? CAD: on dual antiplatelet therapy and high-intensity statin #. Chronic hypoxemic respiratory failure, unclear etiology. Patient states she is on 2 L supplemental oxygen at baseline Med rec pending DVT prophylaxis:? Heparin Full code Low-salt diet Admit as inpatient and will require two night minimum hospital stay for close monitoring of hemodynamics and optimizing antihypertensives Time Spent With Patient Time: Total time managing care of this patient today ____ minutes. Quality Stroke Does the patient have a stroke diagnosis?: No VTE Prior VTE?: No VTE Risk Level:: Medical - moderate - high VTE Device Contraindication: Treatment Not Indicated VTE Drug Contraindication: N/A - Med Ordered
[2022-09-16] MEDS: hydrALAZINE HCl 20 MG/ML VIAL 10 MG IVPUSH (00:30)
[2022-09-16] MEDS: Nitroglycerin 2 % Oint 1 GM Packet 1 INCH TRANSDERMA (00:31)
[2022-09-16] MEDS: Furosemide 40 MG/4 ML VIAL IVPUSH (01:48)
--- NOTE | 2022-09-16 03:13 | PC.NURSE ---
Addendum entered by Briana Ye RN 09/16/22 05:55: Pt was given 1 dose of 20mg IV labetalol. BP remains high 186/108. Provider notified. Pt also given benadryl IV for itchiness. Currently sleeping. Original Note: 0310 Pt came in via stretcher from ED, alert and orientedx3. legally blind. Moaning and reported 10/10 pain all throughout her body. Able to stand and pivot from stretcher to bed. Settled in bed. Admission process done. pt offered zofran for nausea and oxycodone for pain but refused and preferred only IV dilauded for pain relief. Provider notified. Right chest permacath is present. An open wound is present to bottom of left foot. s/p transmetarsal amputation noted. Pt reported using wheelchair at baseline for mobility. 2L supplemental O2 at baseline.
[2022-09-16] MEDS: Labetalol HCL 100 MG/20 ML VIAL 20 MG IVPUSH (04:21)
[2022-09-16] MEDS: diphenhydrAMINE HCL 50 MG/ML VIAL IVPUSH (04:55)
--- NOTE | 2022-09-16 07:33 | PHA.MEDREC ---
Pharmacy Consult ? Medication Reconciliation Pharmacy has completed the medication reconciliation. Patient recently discharged, used discharge medications
[2022-09-16 07:46] LABS: Glucose, Whole Blood 95 mg/dL (60-115)
--- NOTE | 2022-09-16 08:20 | PM.CNNEP ---
History of Present Illness Reason for Consult Consult date: 09/16/22 Chief Complaint Chief complaint: Dyspnea History of Present Illness Narrative: 31-year-old female with history of ESRD admitted with hypertensive emergency and CHF. She presented to the emergency department for evaluation of nausea, vomiting, elevated blood pressure and dyspnea.? Patient states that her blood pressure was found to be elevated when she went for hemodialysis on Sunday.? Review of Systems Review of Systems 10 points ROS negative except for pertinent in [facility] Past Medical History Medical History (Updated 09/16/22 @ 08:25 by Jason Sanchez MD) Abnormal finding on echocardiogram Acute dyspnea Acute on chronic systolic and diastolic heart failure, NYHA class 3 Acute worsening of stage 3 chronic kidney disease MYNOR (acute kidney injury) Anemia Anemia in chronic kidney disease (CKD) Asthma Atypical chest pain Back pain Blind right eye Bone infection Cardiomyopathy Cellulitis Cellulitis and abscess of foot delivery delivered Chest pain CHF (congestive heart failure) (~06/07/22) CKD (chronic kidney disease) CKD (chronic kidney disease) CKD (chronic kidney disease) stage 4, GFR 15-29 ml/min Depression with anxiety Diabetes Diabetic retinopathy DM foot ulcer Elevated troponin ESRD needing dialysis Essential hypertension Fever Generalized edema HFrEF (heart failure with reduced ejection fraction) HTN (hypertension) Hypertension (~06/10/22) Metabolic acidosis Migraine Osteomyelitis PAD (peripheral artery disease) Pleural effusion test positive test positive Sepsis Severe anemia Tachycardia Type 2 diabetes mellitus with hyperglycemia, with long-term current use of insulin Family History Family History Mother Coronary artery disease Myocardial infarction Stroke Diabetes mellitus Father Myocardial infarction Surgical History Surgical History History of transmetatarsal amputation of foot S/P transmetatarsal amputation of foot Social History Social History Household Members: Significant Other and Family Household Members Other:: Sister, [id number], nephew Housing: Apartment Do you presently have visiting nurse or other home services: No Alcohol intake: never Patient Tobacco Use Status: Never used Tobacco e-Cigarette/Vaping Use: Never Used Second Hand Smoke Exposure: No Advance Directives Date on File: 03/08/20 service: No Current occupational status: unemployed and disabled Gender identity: Female Meds Allergies Allergy/AdvReac Type Severity Reaction Status Date / Time morphine [MORPHINE] Allergy Intermediate Itching Verified 09/10/22 19:39 azithromycin [From Zithromax] Allergy Hives Verified 09/10/22 19:39 gabapentin Allergy Facial Verified 09/10/22 19:39 Swelling tramadol Allergy Facial Verified 09/10/22 19:39 Swelling vancomycin Allergy Hives Verified 09/10/22 19:39 Active Medications: Current Medications Acetaminophen (Acetaminophen 325 Mg Tablet) 650 mg PO Q6H PRN PRN Reason: Pain, Mild (Pain Scale 1-3) Dextrose (Dextrose 50 % 25 Gm/50 Ml Syringe) 25 gm IVPUSH Q15M PRN; Protocol PRN Reason: per Hypoglycemia Standing Ord. Furosemide (Furosemide 40 Mg/4 Ml Vial) 40 mg IVPUSH Q12H [facility]; Protocol Last Admin: 09/16/22 01:48 Dose: 40 mg Glucose (Glucose Gel 15 Gm Gel..Gram.) 15 gm PO Q15M PRN; Protocol PRN Reason: per Hypoglycemia Standing Ord. Heparin Sodium (Porcine) (Heparin Sodium,Porcine 5,000 Unit/Ml Vial) 5,000 unit SUBCUT Q12H [facility] Last Admin: 09/16/22 01:54 Dose: Not Given Insulin Human Lispro (Insulin Lispro 100 Unit/Ml 3 Ml Vial) 0 unit SUBCUT QIDACHS [facility]; Protocol Melatonin (Melatonin 3 Mg Tablet) 6 mg PO BEDTIME PRN PRN Reason: Insomnia Ondansetron HCl (Ondansetron Hcl 4 Mg/2 Ml Vial) 4 mg IVPUSH Q8H PRN PRN Reason: Nausea and Vomiting Oxycodone HCl (Oxycodone Hcl Immed Release 5 Mg Tablet) 5 mg PO Q6H PRN PRN Reason: Pain, Severe (Pain Scale 7-10) Pharmacy Consult (Consult Rx Perform Med Rec) 1 each MISCELLANE ONCE PRN PRN Reason: Consult order Sodium Chloride (0.9 % Sodium Chloride Flush 3 Ml Syringe) [address] [facility] Home Medications Medication Instructions Recorded Confirmed Last Taken Type docusate sodium 100 mg capsule 100 mg PO DAILY PRN constipation 08/13/22 09/16/22 Unknown History oxycodone 5 mg tablet 5 mg PO Q6H PRN severe pain 06/18/23 07/22/23 Unknown History hydralazine 25 mg tablet 75 mg PO TID 08/25/22 09/16/22 08/24/22 History Physical Exam Vital Signs: Last Vital Signs Temp 98.4 F 09/16/22 07:54 Pulse 95 09/16/22 07:54 Resp 18 09/16/22 07:54 BP 180/98 H 09/16/22 07:54 Pulse Ox 98 09/16/22 07:54 O2 Del Method Nasal Cannula 09/16/22 07:54 O2 Flow Rate 2 09/16/22 07:54 Oxygen Flow Rate 2 09/15/22 14:58 BMI result Body Mass Index 33.4 Const General: alert and awake HEENT Head: Yes normocephalic and Yes atraumatic Neck Neck: Yes supple Resp Auscultation: diminished lung sounds Cardio Heart sounds: S1 normal heart sound present and S2 normal heart sound present GI Palpation (GI): Soft to palpation and nontender Extrem Right upper extremity: no edema Results Lab Results 09/15/22 16:48 09/15/22 16:48 Lab results: Chemistry 09/15/22 16:48 Sodium 138 Potassium 3.9 Carbon Dioxide 23 BUN 27 H Creatinine 3.15 H Calcium 8.5 D Hematology 09/15/22 16:48 WBC 4.5 L Hgb 7.8 L Plt Count 195 Assessment and Plan (1) End-stage renal disease (ESRD): Status: Resolved (2) Hypertension: Status: Acute (3) HFrEF (heart failure with reduced ejection fraction): Status: Acute (4) Anemia: Status: Acute Plan [facility] presented with HTN and CHF h/o HFrEF REC HD today optimize volume status renal diet phosphate binders VIPUL Time Spent With Patient Time: Total time managing care of this patient today ____ minutes. Procedures Date of Service Date of Service: 09/16/22
[2022-09-16 11:20] LABS: Glucose, Whole Blood 106 mg/dL (60-115)
--- NOTE | 2022-09-16 11:49 | MHC.CM.PN ---
IMM 09/16 given verbally via telephone to pts sister and copy to be sent via certified mail per her request. Pt admitted with dx dyspnea. Pt lives with her sister Josy [phone] who is her horse race timer NIGHT CLERK, pt uses a walker and wheelchair. Pt has new hemodialysis. D/C plan pending further evaluation, but likely return home with resumption of previous NIGHT CLERK services. HCP on file, is pts brother Michael [phone]. Pt had just vomited and was feeling unwell during CM assessment, pts brother Michael and sister Josy able to provide information via telephone. PCP: Abdon Santana vax: [phone]
--- NOTE | 2022-09-16 12:34 | PC.NURSE ---
pt refused all AM meds, stating she was very nauseated. MD ordered phenrgan, which was administered to good effect. Pt continued to refuse PO pain meds, cardiac medications. MD aware. Pt currently undergoing dialysis.
--- NOTE | 2022-09-16 12:35 | PM.CNCAR ---
History of Present Illness History of Present Illness Date of Service: 09/16/22 Requesting physician: Scarlet Arora Chief complaint: Dyspnea Narrative: 32-year-old female presenting with dyspnea, elevated blood pressures and pain all over her body. She has known history of end-stage renal disease. She has mild to moderate cardiomyopathy based on echocardiography recently. Unfortunately she has multiple medical issues at a young age and has not been quite compliant with her care also. She is now complaining of pain all over her body. She said she was throwing up and her blood pressure medications probably came out. Her blood pressure was quite high on admission. She also missed dialysis on Sunday. Right now she is just distressed with pain all over her body. [facility], [facility] Past Medical History Medical History (Updated 09/16/22 @ 08:25 by Jason Sanchez MD) Abnormal finding on echocardiogram Acute dyspnea Acute on chronic systolic and diastolic heart failure, NYHA class 3 Acute worsening of stage 3 chronic kidney disease MYNOR (acute kidney injury) Anemia Anemia in chronic kidney disease (CKD) Asthma Atypical chest pain Back pain Blind right eye Bone infection Cardiomyopathy Cellulitis Cellulitis and abscess of foot delivery delivered Chest pain CHF (congestive heart failure) (~06/07/22) CKD (chronic kidney disease) CKD (chronic kidney disease) CKD (chronic kidney disease) stage 4, GFR 15-29 ml/min Depression with anxiety Diabetes Diabetic retinopathy DM foot ulcer Elevated troponin ESRD needing dialysis Essential hypertension Fever Generalized edema HFrEF (heart failure with reduced ejection fraction) HTN (hypertension) Hypertension (~06/10/22) Metabolic acidosis Migraine Osteomyelitis PAD (peripheral artery disease) Pleural effusion test positive test positive Sepsis Severe anemia Tachycardia Type 2 diabetes mellitus with hyperglycemia, with long-term current use of insulin Family History Family History Mother Coronary artery disease Myocardial infarction Stroke Diabetes mellitus Father Myocardial infarction Surgical History Surgical History History of transmetatarsal amputation of foot S/P transmetatarsal amputation of foot Social History Social History Household Members: Significant Other and Family Household Members Other:: Sister, [id number], nephew Housing: Apartment Do you presently have visiting nurse or other home services: No Alcohol intake: never Patient Tobacco Use Status: Never used Tobacco e-Cigarette/Vaping Use: Never Used Second Hand Smoke Exposure: No Advance Directives Date on File: 03/08/20 service: No Current occupational status: unemployed and disabled Gender identity: Female Meds Allergies Allergy/AdvReac Type Severity Reaction Status Date / Time morphine [MORPHINE] Allergy Intermediate Itching Verified 09/10/22 19:39 azithromycin [From Zithromax] Allergy Hives Verified 09/10/22 19:39 gabapentin Allergy Facial Verified 09/10/22 19:39 Swelling tramadol Allergy Facial Verified 09/10/22 19:39 Swelling vancomycin Allergy Hives Verified 09/10/22 19:39 Active Medications: Current Medications Acetaminophen (Acetaminophen 325 Mg Tablet) 650 mg PO Q6H PRN PRN Reason: Pain, Mild (Pain Scale 1-3) Aspirin (Aspirin Enteric Coated 81 Mg Tablet.Dr) 81 mg PO DAILY [facility] Atorvastatin Calcium (Atorvastatin Calcium 40 Mg Tablet) 40 mg PO BEDTIME [facility] Carvedilol (Carvedilol 12.5 Mg Tablet) 12.5 mg PO BID [facility]; Protocol Clopidogrel Bisulfate (Clopidogrel Bisulfate 75 Mg Tablet) 75 mg PO DAILY [facility] Dextrose (Dextrose 50 % 25 Gm/50 Ml Syringe) 25 gm IVPUSH Q15M PRN; Protocol PRN Reason: per Hypoglycemia Standing Ord. Docusate Sodium (Docusate Sodium 100 Mg Capsule) 100 mg PO DAILY PRN PRN Reason: constipation Glucose (Glucose Gel 15 Gm Gel..Gram.) 15 gm PO Q15M PRN; Protocol PRN Reason: per Hypoglycemia Standing Ord. Heparin Sodium (Porcine) (Heparin Sodium,Porcine 5,000 Unit/Ml Vial) 5,000 unit SUBCUT Q12H [facility] Last Admin: 09/16/22 01:54 Dose: Not Given Hydralazine HCl (Hydralazine Hcl 25 Mg Tablet) 75 mg PO TID [facility]; Protocol Promethazine HCl 12.5 mg/ (Sodium Chloride) 50.5 mls @ 202 mls/hr IV Q6H PRN PRN Reason: Vomiting Last Admin: 09/16/22 10:56 Dose: 202 mls/hr Insulin Human Lispro (Insulin Lispro 100 Unit/Ml 3 Ml Vial) 0 unit SUBCUT QIDACHS [facility]; Protocol Last Admin: 09/16/22 11:24 Dose: Not Given Losartan Potassium (Losartan Potassium 25 Mg Tablet) 25 mg PO DAILY [facility]; Protocol Melatonin (Melatonin 3 Mg Tablet) 6 mg PO BEDTIME PRN PRN Reason: Insomnia Nifedipine (Nifedipine Er 60 Mg Tab.Er.24) 60 mg PO DAILY [facility]; Protocol Omeprazole (Omeprazole 40 Mg Capsule.Dr) 40 mg PO DAILY@0630 [facility] Oxycodone HCl (Oxycodone Hcl Immed Release 5 Mg Tablet) 5 mg PO Q6H PRN PRN Reason: Pain, Severe (Pain Scale 7-10) Pharmacy Consult (Consult Rx Perform Med Rec) 1 each MISCELLANE ONCE PRN PRN Reason: Consult order Sodium Chloride (0.9 % Sodium Chloride Flush 3 Ml Syringe) 3 ml IVFLUSH QSHIFT [facility] Last Admin: 09/16/22 11:00 Dose: Not Given Sucralfate (Sucralfate 1 Gm Tablet) 1 gm PO BID [facility] Torsemide (Torsemide 20 Mg Tablet) 40 mg PO BID [facility]; Protocol Home Medications Medication Instructions Recorded Confirmed Last Taken Type docusate sodium 100 mg capsule 100 mg PO DAILY PRN constipation 08/13/22 09/16/22 Unknown History oxycodone 5 mg tablet 5 mg PO Q6H PRN severe pain 08/13/22 09/16/22 Unknown History hydralazine 25 mg tablet 75 mg PO TID 08/25/22 09/16/22 08/24/22 History Physical Exam Vital Signs: Vital Signs: Last Vital Signs Temp 98.4 F 09/16/22 07:54 Pulse 95 09/16/22 07:54 Resp 18 09/16/22 07:54 BP 180/98 H 09/16/22 07:54 Pulse Ox 98 09/16/22 07:54 O2 Del Method Nasal Cannula 09/16/22 07:54 O2 Flow Rate 2 09/16/22 07:54 Oxygen Flow Rate 2 09/15/22 14:58 BMI result Body Mass Index 33.4 GENERAL APPEARANCE: Distressed due to pain. NECK: no carotid bruit, no significant jugular venous distention. SKIN: no suspicious lesions, warm and dry. HEART: no murmurs, regular rate and rhythm. LUNGS: clear to auscultation bilaterally. ABDOMEN: soft, nontender. EXTREMITIES: no edema. PERIPHERAL PULSES: equal. NEUROLOGIC: No gross deficits, AAO X 3 Objective Labs and Meds 09/15/22 16:48 09/15/22 16:48 Lab results: Laboratory Results - last 24 hr 09/15/22 09/15/22 09/15/22 16:48 16:48 16:48 WBC 4.5 L RBC 2.96 L Hgb 7.8 L Hct 25.6 L MCV 86.5 MCH 26.4 L MCHC 30.5 L RDW 18.1 H Plt Count 195 MPV 11.0 Immature Gran % (Auto) 0.2 Neut % (Auto) 79.4 H Lymph % (Auto) 12.4 L [place] % (Auto) 4.7 Eos % (Auto) 2.9 Baso % (Auto) 0.4 Lymph # (Auto) 0.6 L [place] # (Auto) 0.2 Eos # (Auto) 0.1 Baso # (Auto) 0.0 Abs Immat Gran (auto) 0.01 Absolute Neuts (auto) 3.6 Absolute Nucleated RBC 0.000 Nucleated RBC % (auto) 0.0 Sodium 138 Potassium 3.9 Chloride 105 Carbon Dioxide 23 Anion Gap 14 BUN 27 H Creatinine 3.15 H Estim Creat Clear Calc 31.8 Estimated GFR 17 POC Glucose Random Glucose 141 H Calcium 8.5 D Magnesium 2.3 Total Bilirubin 1.5 H AST 23 ALT 10 Alkaline Phosphatase 97 Troponin I High Sens Total Protein 7.3 Albumin 3.5 COVID-19 ([facility]) COVID-19 Clin Com Influenza Type A ([facility]) Negative Influenza Type B ([facility]) Negative Influenza A & B Note See Note 09/15/22 09/15/22 09/16/22 16:48 16:48 07:36 WBC RBC Hgb Hct MCV MCH MCHC RDW Plt Count MPV Immature Gran % (Auto) Neut % (Auto) Lymph % (Auto) [place] % (Auto) Eos % (Auto) Baso % (Auto) Lymph # (Auto) [place] # (Auto) Eos # (Auto) Baso # (Auto) Abs Immat Gran (auto) Absolute Neuts (auto) Absolute Nucleated RBC Nucleated RBC % (auto) Sodium Potassium Chloride Carbon Dioxide Anion Gap BUN Creatinine Estim Creat Clear Calc Estimated GFR POC Glucose 95 Random Glucose Calcium Magnesium Total Bilirubin AST ALT Alkaline Phosphatase Troponin I High Sens 21.5 H D Total Protein Albumin COVID-19 (CARO) Negative COVID-19 Clin Com See Note Influenza Type A ([facility]TON) Influenza Type B ([facility]) Influenza A & B Note 09/16/22 11:17 WBC RBC Hgb Hct MCV MCH MCHC RDW Plt Count MPV Immature Gran % (Auto) Neut % (Auto) Lymph % (Auto) [place] % (Auto) Eos % (Auto) Baso % (Auto) Lymph # (Auto) [place] # (Auto) Eos # (Auto) Baso # (Auto) Abs Immat Gran (auto) Absolute Neuts (auto) Absolute Nucleated RBC Nucleated RBC % (auto) Sodium Potassium Chloride Carbon Dioxide Anion Gap BUN Creatinine Estim Creat Clear Calc Estimated GFR POC Glucose 106 Random Glucose Calcium Magnesium Total Bilirubin AST ALT Alkaline Phosphatase Troponin I High Sens Total Protein Albumin COVID-19 (CARO) COVID-19 Clin Com Influenza Type A ([facility]TON) Influenza Type B ([facility]) Influenza A & B Note Imaging Radiologist's impression: Impressions Chest X-Ray 09/15/22 16:55 IMPRESSION: Worsened interstitial thickening. Findings are suggestive of increased pulmonary edema. However, an atypical infectious/inflammatory process cannot be excluded in the appropriate clinical context. Assessment and Plan (1) HFrEF (heart failure with reduced ejection fraction): Status: Acute (2) Hypertension: Status: Acute Plan 32-year-old female with multiple medical issues presenting with dyspnea in the setting of missing hemodialysis as well as elevated blood pressures. She has [id number] cardiomyopathy based on recent echocardiography. Resume home medications and monitor closely. Blood pressure elevated either due to noncompliance or due to the fact that she was nauseous and throwing up and probably the medications were not absorbed well. In any case she needs to have better compliance with the medications. Right now her main concern is pain all over the body. She has been on narcotics orally. Thank you for allowing me to participate in the care of your patient. Please feel free to contact me if you have any questions. Time Spent With Patient Time: Total time managing care of this patient today ____ minutes. Procedures Date of Service Date of Service: 09/16/22
--- NOTE | 2022-09-16 13:21 | PM.EVENT ---
Event Note Date of Service: 09/16/22 Event Note: Complaining of nausea vomiting, generalized body ache asking for pain medication that start with letter D has allergy to morphine and tramadol currently on oxycodone as needed On examination No acute distress No change from admission history and physical. 31-year-old female with pertinent history of essential hypertension, congestive heart failure with reduced ejection fraction, insulin-dependent type 2 diabetes mellitus with diabetic retinopathy, mood disorder, PAD status post transmetatarsal amputation of foot, ESRD on HD, diabetic gastroparesis, chronic hypoxemic respiratory failure who presents to the emergency department for evaluation of nausea/vomiting, elevated blood pressure and dyspnea. #.? Hypertensive emergency, questionable compliance with medications. Blood pressure elevated since infusing to take antihypertensive unless treated with IV Dilaudid #.? Acute on chronic congestive heart failure with reduced ejection fraction in the setting of above and missed hemodialysis session.? Treated with IV Lasix scheduled for hemodialysis this afternoon will place back on home diuretics, beta-mohamud and ARB #.? Nausea/vomiting likely related to hypertensive emergency.? Also has history of diabetic gastroparesis. Not responding to Reglan will place on IV Phenergan #.? ESRD on HD:? Seen by Nephrology hemodialysis scheduled for today #.? Insulin-dependent type 2 diabetes mellitus.? Initiating Accu-Cheks with sliding scale insulin #.? Chronic normocytic anemia #.? CAD: on dual antiplatelet therapy and high-intensity statin #.? Chronic hypoxemic respiratory failure, unclear etiology.? Patient states she is on 2 L supplemental oxygen at baseline DVT prophylaxis:? Heparin Full code Low-salt diet Time Spent With Patient Time: Total time managing care of this patient today ____ minutes.
[2022-09-16] MEDS: HYDROmorphone HCl 0.5 MG/0.5 ML SYRINGE 0.25 MG IVPUSH (16:03)
[2022-09-16] MEDS: 0.9 % Sodium Chloride Flush 3 ML SYRINGE IVFLUSH ×2 (16:03→20:02)
[2022-09-16] MEDS: Losartan Potassium 25 MG TABLET PO (16:43)
[2022-09-16] MEDS: hydrALAZINE HCl 25 MG TABLET 75 MG PO (16:43)
[2022-09-16] MEDS: carvediloL 12.5 MG TABLET PO (16:43)
[2022-09-16] MEDS: NIFEdipine ER 60 MG TAB.ER.24 PO (16:44)
[2022-09-16] MEDS: Labetalol HCL 100 MG/20 ML VIAL 10 MG IVPUSH (20:01)
[2022-09-16] MEDS: Scopolamine 1.5 MG PATCH.TD.3 EAR-BEHIND (20:01)
[2022-09-17] VITALS (7 sets, daily range): BP systolic 100–232; BP diastolic 50–110; PULSE 76–96; RESP 14–20; TEMP 35.9–37.1; O2SAT 93–98
--- NOTE | 2022-09-17 01:39 | PC.NURSE ---
Addendum entered by Briana Ye RN 09/17/22 06:23: Pt remains hypertensive 185/90 this morning. HR 90. Pt sleeping. Original Note: Assumed care at 1900. Pt was moaning and dry heaving. SBP is at 200's. Refused all her oral meds. Provider is aware. Scopolamine patch applied behind her left ear. IV 10mg of Labetalol given. Pt continuously asking for IV Dilaudid and Benadryl. Pt given PRN IV Promethazine. Pt educated about med compliance but remains uncooperative to health care.
--- NOTE | 2022-09-17 07:49 | P.PNNP_ITS ---
Subjective Subjective Date of Service: 09/17/22 Interval history: seen and examined had HD yesterday Physical Exam Vital Signs: Vital Signs: Last Vital Signs Temp 97.0 F 09/17/22 03:36 Pulse 90 09/17/22 06:26 Resp 20 09/17/22 06:26 BP 185/90 H 09/17/22 06:26 Pulse Ox 93 09/17/22 03:36 O2 Del Method Room Air 09/17/22 03:36 O2 Flow Rate 2 09/16/22 19:23 Oxygen Flow Rate 2 09/15/22 14:58 BMI result Body Mass Index 33.4 Const: General: alert and awake HEENT: Head: Yes normocephalic and Yes atraumatic Neck: Neck: Yes supple Resp: Auscultation: diminished lung sounds Cardio: Heart sounds: S1 normal heart sound present and S2 normal heart sound present GI: Palpation (GI): Soft to palpation and nontender Extrem: Right upper extremity: no edema Objective Data Labs 09/15/22 16:48 09/15/22 16:48 Labs: Laboratory Results - last 24 hr 09/16/22 11:17 POC Glucose 106 Procedures Date of Service Date of Service: 09/17/22 Assessment & Plan Assessment and plan (1) End-stage renal disease (ESRD): Status: Resolved (2) Hypertension: Status: Acute (3) HFrEF (heart failure with reduced ejection fraction): Status: Acute (4) Anemia: Status: Acute Plan s/p HD yesterday known ESRD on HD at [facility] presented with HTN and CHF h/o HFrEF REC HD per schedule increase nifedipine to 90 mg daily if BP remains high renal diet phosphate binders VIPUL Time Spent With Patient Time: Total time managing care of this patient today ____ minutes. Progress Note: Quality Stroke Does the patient have a stroke diagnosis?: No
[2022-09-17 07:50] LABS: Glucose, Whole Blood 74 mg/dL (60-115)
[2022-09-17] MEDS: 0.9 % Sodium Chloride Flush 3 ML SYRINGE IVFLUSH ×3 (10:15→20:52)
[2022-09-17] MEDS: hydrALAZINE HCl 25 MG TABLET 75 MG PO ×3 (10:15→20:51)
[2022-09-17] MEDS: NIFEdipine ER 60 MG TAB.ER.24 PO (10:17)
[2022-09-17] MEDS: Losartan Potassium 25 MG TABLET PO (10:18)
[2022-09-17] MEDS: diphenhydrAMINE HCL 25 MG CAPSULE PO ×2 (10:18→20:52)
[2022-09-17] MEDS: oxyCODONE HCl Immed Release 5 MG TABLET PO ×2 (10:19→20:52)
[2022-09-17] MEDS: Aspirin Enteric Coated 81 MG TABLET.DR PO (10:20)
[2022-09-17] MEDS: carvediloL 12.5 MG TABLET PO ×2 (10:20→20:51)
[2022-09-17] MEDS: Clopidogrel Bisulfate 75 MG TABLET PO (10:20)
[2022-09-17] MEDS: Torsemide 20 MG TABLET 40 MG PO (10:21)
[2022-09-17 11:24] LABS: Glucose, Whole Blood 92 mg/dL (60-115)
--- NOTE | 2022-09-17 13:54 | P.PNIM_ITS ---
Subjective Subjective Date of Service: 09/17/22 Interval History: patient refusing to take blood pressure medications due to nausea and refusing to take antiemetics due to itching, asking for IV Benadryl and Dilaudid for generalized body ache, denies any specific pain complaining of antibody cramping refusing home dose of oxycodone, complaining of allergy to morphine and tramadol, only Dilaudid works, no vomiting noted, no chest pain, no shortness of breath, no headache or dizziness. Review of Systems All other system reviewed and negative. Physical Exam Vital Signs: Vital Signs: Last Vital Signs Temp 98.2 F 09/17/22 11:51 Pulse 94 09/17/22 11:51 Resp 16 09/17/22 11:51 BP 194/97 H 09/17/22 11:51 Pulse Ox 98 09/17/22 11:51 O2 Del Method Nasal Cannula 09/17/22 11:51 O2 Flow Rate 2 09/17/22 11:51 Oxygen Flow Rate 2 09/15/22 14:58 BMI result Body Mass Index 33.4 Const: Other: Gen: Awake alert x3, in no acute distress HEENT: sclera anicteric, moist mucus membranes, blind Neck: supple Lungs: clear to auscultation bilaterally Heart: regular rate and rhythm, no murmurs Abd: soft, nontender, no rebound Ext: trace leg edema bilaterally Skin: warm/well-perfused Neuro: alert and oriented x3, no focal findings Psych: appropriate affect Objective Data Active Medications Acetaminophen (Acetaminophen 325 Mg Tablet) 650 mg PO Q6H PRN PRN Reason: Pain, Mild (Pain Scale 1-3) Aspirin (Aspirin Enteric Coated 81 Mg Tablet.) 81 mg PO DAILY [facility] Last Admin: 09/17/22 10:20 Dose: 81 mg Documented By: FER Comments: delayed by patient initial refusal, see nursing note Atorvastatin Calcium (Atorvastatin Calcium 40 Mg Tablet) 40 mg PO BEDTIME [facility] Last Admin: 09/16/22 21:45 Dose: Not Given Documented By: LOC Non-Admin Reason: Patient Refused Carvedilol (Carvedilol 12.5 Mg Tablet) 12.5 mg PO BID [facility]; Protocol Last Admin: 09/17/22 10:20 Dose: 12.5 mg Documented By: FER Comments: delayed by patient initial refusal, see nursing note Clopidogrel Bisulfate (Clopidogrel Bisulfate 75 Mg Tablet) 75 mg PO DAILY [facility] Last Admin: 09/17/22 10:20 Dose: 75 mg Documented By: FER Comments: delayed by patient initial refusal, see nursing note Dextrose (Dextrose 50 % 25 Gm/50 Ml Syringe) 25 gm IVPUSH Q15M PRN; Protocol PRN Reason: per Hypoglycemia Standing Ord. Diphenhydramine HCl (Diphenhydramine Hcl 25 Mg Capsule) 25 mg PO Q6H PRN PRN Reason: Itching Last Admin: 09/17/22 10:18 Dose: 25 mg Documented By: FER Docusate Sodium (Docusate Sodium 100 Mg Capsule) 100 mg PO DAILY PRN PRN Reason: constipation Glucose (Glucose Gel 15 Gm Gel..Gram.) 15 gm PO Q15M PRN; Protocol PRN Reason: per Hypoglycemia Standing Ord. Heparin Sodium (Porcine) (Heparin Sodium,Porcine 5,000 Unit/Ml Vial) 5,000 unit SUBCUT Q12H [facility] Last Admin: 09/17/22 00:19 Dose: Not Given Documented By: LOC Non-Admin Reason: Patient Refused Hydralazine HCl (Hydralazine Hcl 25 Mg Tablet) 75 mg PO TID [facility]; Protocol Last Admin: 09/16/22 21:59 Dose: Not Given Documented By: LOC Non-Admin Reason: Patient Refused Promethazine HCl 12.5 mg/ (Sodium Chloride) 50.5 mls @ 202 mls/hr IV Q6H PRN PRN Reason: Vomiting Last Admin: 09/17/22 10:01 Dose: 202 mls/hr Documented By: FER Insulin Human Lispro (Insulin Lispro 100 Unit/Ml 3 Ml Vial) 0 unit SUBCUT QIDACHS [facility]; Protocol Last Admin: 09/17/22 08:18 Dose: Not Given Documented By: FER Non-Admin Reason: No Insulin Coverage Losartan Potassium (Losartan Potassium 25 Mg Tablet) 25 mg PO DAILY [facility]; Protocol Last Admin: 09/17/22 10:18 Dose: 25 mg Documented By: FER Comments: delayed by patient initial refusal, see nursing note Melatonin (Melatonin 3 Mg Tablet) 6 mg PO BEDTIME PRN PRN Reason: Insomnia Nifedipine (Nifedipine Er 60 Mg Tab.Er.24) 60 mg PO DAILY [facility]; Protocol Last Admin: 09/17/22 10:17 Dose: 60 mg Documented By: FER Omeprazole (Omeprazole 40 Mg Capsule.Dr) 40 mg PO DAILY@0630 [facility] Last Admin: 09/17/22 05:41 Dose: Not Given Documented By: LOC Non-Admin Reason: Patient Refused Oxycodone HCl (Oxycodone Hcl Immed Release 5 Mg Tablet) 5 mg PO Q6H PRN PRN Reason: Pain, Severe (Pain Scale 7-10) Last Admin: 09/17/22 10:19 Dose: 5 mg Documented By: FER Pharmacy Consult (Consult Rx Perform Med Rec) 1 each MISCELLANE ONCE PRN PRN Reason: Consult order Sodium Chloride (0.9 % Sodium Chloride Flush 3 Ml Syringe) 3 ml IVFLUSH QSHIFT [facility] Last Admin: 09/16/22 20:02 Dose: 3 ml Documented By: LOC Sucralfate (Sucralfate 1 Gm Tablet) 1 gm PO BID [facility] Last Admin: 09/16/22 21:45 Dose: Not Given Documented By: LOC Non-Admin Reason: Patient Refused Torsemide (Torsemide 20 Mg Tablet) 40 mg PO BID [facility]; Protocol Last Admin: 09/17/22 10:21 Dose: 40 mg Documented By: FER Comments: delayed by patient initial refusal, see nursing note Labs 09/15/22 16:48 09/15/22 16:48 Labs: Laboratory Results - last 24 hr 09/17/22 09/17/22 07:47 11:20 POC Glucose 74 92 Assessment and Plan (1) Hypertensive emergency: Status: Acute Plan 31-year-old female with pertinent history of essential hypertension, congestive heart failure with reduced ejection fraction, insulin-dependent type 2 diabetes mellitus with diabetic retinopathy, mood disorder, PAD status post transmetatarsal amputation of foot, ESRD on HD, diabetic gastroparesis, chronic hypoxemic respiratory failure who presents to the emergency department for evaluation of nausea/vomiting, elevated blood pressure and dyspnea. #.? Hypertensive emergency, questionable compliance with medications. ?? ? Blood pressure elevated since refusing to take antihypertensive unless treated with IV Dilaudid Inform patient she does not qualify for IV analgesics with no specific pain, agreed to give Benadryl by mouth with anti emetics, patient agreed to take blood pressure medications follow BP if remains elevated for Despite home meds will increase dose of nifedipine to 90 mg daily #.? Acute on chronic congestive heart failure with reduced ejection fraction in the setting of above and missed hemodialysis session.? Treated with IV Lasix 1 dose in the ED, subsequently underwent hemodialysis no shortness of breath continue home diuretics, beta-mohamud and ARB #.? Nausea/vomiting likely related to hypertensive emergency.? Also has history of diabetic gastroparesis.on IV Phenergan and prn po benadryl #.? ESRD on HD:? Underwent hemodialysis on 09/14at baseline gets hemodialysis on Wednesdays and Sunday #.? Insulin-dependent type 2 diabetes mellitus.? Initiating Accu-Cheks with sliding scale insulin #.? Chronic normocytic anemia #.? CAD: on dual antiplatelet therapy and high-intensity statin #.? Chronic hypoxemic respiratory failure, unclear etiology.? Patient states she is on 2 L supplemental oxygen at baseline DVT prophylaxis:? Heparin Full code Low-salt diet Time Spent With Patient Time: Total time managing care of this patient today ____ minutes. Quality Stroke Does the patient have a stroke diagnosis?: No VTE Prior VTE?: No VTE Risk Level:: Medical - moderate - high VTE Device Contraindication: Treatment Not Indicated VTE Drug Contraindication: N/A - Med Ordered
[2022-09-17 15:55] LABS: Glucose, Whole Blood 75 mg/dL (60-115)
--- NOTE | 2022-09-17 16:05 | PC.NURSE ---
Patient reported 10/10 pain all over, unable to specify specific sites or clarify or describe pain. She says she cannot take oral medications because she has been throwing up, by which she means dry heaving. She reported the phenergran has not been helping. Her Blood pressure was 232/110, MD notified. She refused the oxycodone saying it doesn't help and that she cannot take pills due to nausea. Heart rate 92, pupils 4-5 mm and reactive but sluggish. She is not diaphoretic, just nauseaous. Can she be given IV pain medications and IV blood pressure medication? Any other suggestions? I was wondering if care team would be indicated Refused phenergran saying it makes her itchy. only wants dilaudid. MD in to see patient. Reported she is itchy all over her body and wanted IV benedryl. After discussion with MD, demond allowed late administration of all PO meds except for sucralfate and omeprazole saying they make her nausea worse. Follow-up BP is 194/97 HR 93 after all BP meds taken. She refused to get OOB today, refused to allow wound care to area on bottom left foot. Poor PO intake. She refused her heparin shot. Patient educated regarding risks of refusing these treatments. Upon reassessments for pain, patient sleeping comfortably and easily arousable.
[2022-09-17 19:35] LABS: Glucose, Whole Blood 78 mg/dL (60-115)
[2022-09-17] MEDS: Atorvastatin Calcium 40 MG TABLET PO (20:51)
[2022-09-18 00:50] LABS: Glucose, Whole Blood 71 mg/dL (60-115)
--- NOTE | 2022-09-18 01:53 | PC.NURSE ---
Addendum entered by Briana Ye RN 09/18/22 05:11: Pt lost her IV but refused to have a new IV inserted. MD aware. Original Note: Pt was sleeping in bed during shift change.During med pass, pt spit our few meds scheduled for 2100 which includes carafate, anti chol meds and etc.. NSR on tele monitor. BP has improved. early this morning, the pt called the RN saying she feels different but dont have exact reasons why she doesnt feel good.POC was checked for 71. BP at midnight was 100's/50s. notified.
[2022-09-18 03:41] VITALS: BP 124/66; PULSE 78; RESP 18; TEMP 36.6; O2SAT 100
[2022-09-18 07:14] LABS: Glucose, Whole Blood 116 mg/dL (60-115)
[2022-09-18 07:18] VITALS: BP 125/60; PULSE 84; RESP 20; TEMP 36.9; O2SAT 97
--- NOTE | 2022-09-18 09:54 | P.PNNP_ITS ---
Subjective Subjective Date of Service: 09/18/22 Interval history: patient is resting in bed No Distress On maintance HD Physical Exam Vital Signs: Vital Signs: Last Vital Signs Temp 98.4 F 09/18/22 07:18 Pulse 84 09/18/22 07:18 Resp 20 09/18/22 07:18 BP 125/60 09/18/22 07:18 Pulse Ox 97 09/18/22 07:18 O2 Del Method Nasal Cannula 09/18/22 07:18 O2 Flow Rate 2 09/18/22 07:18 Oxygen Flow Rate 2 09/15/22 14:58 BMI result Body Mass Index 33.4 Const: Other: Gen: Awake alert x3, in no acute distress HEENT: sclera anicteric, moist mucus membranes, blind Neck: supple Lungs: clear to auscultation bilaterally Heart: regular rate and rhythm, no murmurs Abd: soft, nontender, no rebound Ext: trace leg edema bilaterally Skin: warm/well-perfused Neuro: alert and oriented x3, no focal findings Psych: appropriate affect Objective Data Labs 09/15/22 16:48 09/15/22 16:48 Labs: Laboratory Results - last 24 hr 09/17/22 09/17/22 09/17/22 11:20 15:43 19:29 POC Glucose 92 75 78 09/18/22 09/18/22 00:46 07:11 POC Glucose 71 116 H Procedures Date of Service Date of Service: 09/18/22 Assessment & Plan Assessment and plan (1) End-stage renal disease (ESRD): Status: Resolved (2) Hypertension: Status: Acute (3) HFrEF (heart failure with reduced ejection fraction): Status: Acute (4) Anemia: Status: Acute Plan s/p HD yesterday known ESRD on HD at [facility] presented with HTN and CHF h/o HFrEF REC HD per schedule today Vol removal as tolerated nifedipine to 90 mg daily if BP is an issue phosphate binders VIPUL For D/c today Time Spent With Patient Time: Total time managing care of this patient today ____ minutes. Progress Note: Quality Stroke Does the patient have a stroke diagnosis?: No
--- NOTE | 2022-09-18 10:42 | PC.NURSE ---
Pt transported to dialysis this morning. Morning meds held until after treatment.
--- NOTE | 2022-09-18 12:43 | MHC.CM.PN ---
EMR REVIEWED, PT W/HYPERTENSIVE EMERGENCY/ACUTE OF CHRONIC CHF, PER HOSPITALIST PLAN FOR WOUND/SURGICAL CONSULTS, NO PLAN FOR D/C AT THIS TIME, CM WILL CONT TO FOLLOW D/C NEEDS.
--- NOTE | 2022-09-18 13:53 | P.PNIM_ITS ---
Subjective Subjective Date of Service: 09/18/22 Interval History: complains of right foot pain; BP is more control. Review of Systems Denies chest pain Denies shortness of breath Denies nausea vomiting diarrhea Denies fever chills Physical Exam Vital Signs: Vital Signs: Last Vital Signs Temp 98.4 F 09/18/22 07:18 Pulse 84 09/18/22 07:18 Resp 20 09/18/22 07:18 BP 125/60 09/18/22 07:18 Pulse Ox 97 09/18/22 07:18 O2 Del Method Nasal Cannula 09/18/22 07:18 O2 Flow Rate 2 09/18/22 07:18 Oxygen Flow Rate 2 09/15/22 14:58 BMI result Body Mass Index 33.4 Const: Other: awake alert no acute distress Chest: Other: tunnel catheter right upper chest Resp: Other: bilateral and expiratry crackles Cardio: Other: no S4; positive S1-S2; no S3 murmurs rubs or gallops GI: Other: soft nontender nondistended normoactive bowel sounds Extrem: Other: no edema bilaterally. Tender ventral right foot Objective Data Active Medications Acetaminophen (Acetaminophen 325 Mg Tablet) 650 mg PO Q6H PRN PRN Reason: Pain, Mild (Pain Scale 1-3) Aspirin (Aspirin Enteric Coated 81 Mg Tablet.) 81 mg PO DAILY [facility] Last Admin: 09/17/22 10:20 Dose: 81 mg Documented By: FER Comments: delayed by patient initial refusal, see nursing note Atorvastatin Calcium (Atorvastatin Calcium 40 Mg Tablet) 40 mg PO BEDTIME [facility] Last Admin: 09/17/22 20:51 Dose: 40 mg Documented By: LOC Carvedilol (Carvedilol 12.5 Mg Tablet) 12.5 mg PO BID [facility]; Protocol Last Admin: 09/17/22 20:51 Dose: 12.5 mg Documented By: LOC Clopidogrel Bisulfate (Clopidogrel Bisulfate 75 Mg Tablet) 75 mg PO DAILY [facility] Last Admin: 09/17/22 10:20 Dose: 75 mg Documented By: FER Comments: delayed by patient initial refusal, see nursing note Dextrose (Dextrose 50 % 25 Gm/50 Ml Syringe) 25 gm IVPUSH Q15M PRN; Protocol PRN Reason: per Hypoglycemia Standing Ord. Diphenhydramine HCl (Diphenhydramine Hcl 25 Mg Capsule) 25 mg PO Q6H PRN PRN Reason: Itching Last Admin: 09/17/22 20:52 Dose: 25 mg Documented By: LOC Docusate Sodium (Docusate Sodium 100 Mg Capsule) 100 mg PO DAILY PRN PRN Reason: constipation Glucose (Glucose Gel 15 Gm Gel..Gram.) 15 gm PO Q15M PRN; Protocol PRN Reason: per Hypoglycemia Standing Ord. Heparin Sodium (Porcine) (Heparin Sodium,Porcine 5,000 Unit/Ml Vial) 5,000 unit SUBCUT Q12H [facility] Last Admin: 09/18/22 01:03 Dose: Not Given Documented By: LOC Non-Admin Reason: Patient Refused Hydralazine HCl (Hydralazine Hcl 25 Mg Tablet) 75 mg PO TID [facility]; Protocol Last Admin: 09/17/22 20:51 Dose: 75 mg Documented By: LOC Promethazine HCl 12.5 mg/ (Sodium Chloride) 50.5 mls @ 202 mls/hr IV Q6H PRN PRN Reason: Vomiting Last Infusion: 09/17/22 10:20 Dose: 0 mls/hr Documented By: KESHAV Insulin Human Lispro (Insulin Lispro 100 Unit/Ml 3 Ml Vial) 0 unit SUBCUT QIDACHS [facility]; Protocol Last Admin: 09/18/22 07:34 Dose: Not Given Documented By: KESHAV Non-Admin Reason: No Insulin Coverage Losartan Potassium (Losartan Potassium 25 Mg Tablet) 25 mg PO DAILY [facility]; Protoc ol Last Admin: 09/17/22 10:18 Dose: 25 mg Documented By: FER Comments: delayed by patient initial refusal, see nursing note Melatonin (Melatonin 3 Mg Tablet) 6 mg PO BEDTIME PRN PRN Reason: Insomnia Nifedipine (Nifedipine Er 60 Mg Tab.Er.24) 60 mg PO DAILY [facility]; Protocol Last Admin: 09/17/22 10:17 Dose: 60 mg Documented By: FER Omeprazole (Omeprazole 40 Mg Capsule.) 40 mg PO DAILY@0630 [facility] Last Admin: 09/18/22 05:31 Dose: Not Given Documented By: LOC Non-Admin Reason: Patient Refused Oxycodone HCl (Oxycodone Hcl Immed Release 5 Mg Tablet) 5 mg PO Q6H PRN PRN Reason: Pain, Severe (Pain Scale 7-10) Last Admin: 09/17/22 20:52 Dose: 5 mg Documented By: LOC Pharmacy Consult (Consult Rx Perform Med Rec) 1 each MISCELLANE ONCE PRN PRN Reason: Consult order Sodium Chloride (0.9 % Sodium Chloride Flush 3 Ml Syringe) 3 ml IVFLUSH QSHIFT [facility] Last Admin: 09/18/22 08:56 Dose: Not Given Documented By: GILBERTO Non-Admin Reason: no iv access Sucralfate (Sucralfate 1 Gm Tablet) 1 gm PO BID [facility] Last Admin: 09/17/22 21:02 Dose: Not Given Documented By: LOC Non-Renan Reason: Patient Refused Torsemide (Torsemide 20 Mg Tablet) 40 mg PO BID [facility]; Protocol Last Admin: 09/17/22 21:01 Dose: Not Given Documented By: LOC Non-Admin Reason: pt throw up the meds Labs 09/15/22 16:48 09/15/22 16:48 Labs: Laboratory Results - last 24 hr 09/17/22 09/17/22 09/18/22 15:43 19:29 00:46 POC Glucose 75 78 71 09/18/22 07:11 POC Glucose 116 H Assessment and Plan (1) Hypertensive emergency: Status: Acute (2) Acute on chronic systolic and diastolic heart failure, NYHA class 3: Status: Acute (3) CKD (chronic kidney disease) stage 4, GFR 15-29 ml/min: Status: Acute Plan 31-year-old female with pertinent history of essential hypertension, congestive heart failure with reduced ejection fraction, insulin-dependent type 2 diabetes mellitus with diabetic retinopathy, mood disorder, PAD status post transmetatarsal amputation of foot, ESRD on HD, diabetic gastroparesis, chronic hypoxemic respiratory failure who presents to the emergency department for eval uation of nausea/vomiting, elevated blood pressure and dyspnea. found to be in CHF secondary to missed hemodialysis. Returned to baseline after treatment 1.Hypertensive emergency (resolved) - acceptable control on current therapies - adjust as indicated 3. Acute on chronic congestive heart failure with reduced ejection fraction - resolved with hemodialysis - markedly improved with med compliance secondary to hospitalization 4.ESRD on HD - HD Sunday as per Renal -follow renals/divalents -phosphate binders as ordered 5.Insulin-dependent type 2 diabetes mellitus.? - acceptable control on lispro correctional scale - resume glipizide as outpatient - surgery/ Wound Care to evaluate diabetic foot ulcer 6.CAD - dual antiplatelet therapy - statin Heparin Full code requires ongoing hospitalization for hemodialysis pending evaluation of right foot diabetic foot ulcer Time Spent With Patient Time: Total time managing care of this patient today ____ minutes. Quality Stroke Does the patient have a stroke diagnosis?: No VTE Prior VTE?: No VTE Risk Level:: Medical - moderate - high VTE Device Contraindication: Treatment Not Indicated VTE Drug Contraindication: N/A - Med Ordered
[2022-09-18 14:12] LABS: Glucose, Whole Blood 163 mg/dL (60-115)
--- NOTE | 2022-09-18 15:15 | P.CONGS_ITS ---
History of Present Illness Consult details Consult date: 09/18/22 Requesting physician: Steve Shepherd Narrative: 32-year-old female patient admitted for hypertension and bloody emesis which developed while at hemodialysis on Sunday. Past history significant for essential hypertension, congestive heart failure with reduced ejection fraction, insulin-dependent diabetes with diabetic retinopathy, mood disorder, peripheral arterial disease, status post right transmetatarsal amputation and left amputation of the great toe and 5th toe. She has end-stage renal disease and undergoes hemodialysis every Sunday. She was admitted to the hospitalist service on 09/16/2022. Surgical consultation was requested for evaluation of a plantar ulceration. She reports this ulceration is been chronic since January of last year. She has been applying a dressing on a daily basis but has not seen wound care prior to this. She denies any bleeding or discharge other than the small amount of bleeding of the wound. She also reports severe pain in the lateral malleolus of the left foot. Previous foot x-ray obtained 07/24/2022 revealed chronic and postsurgical/traumatic changes with associated deformity but no definite acute abnormality. No evidence of osteomyelitis. Review of Systems Review of Systems: Yes all other systems are reviewed and are negative Eyes: Eyes: Reports loss of vision Integumentary/Breasts: Skin/Breast: Reports non-healing lesions and Reports skin ulcer Neurologic: Reports loss of vision PMFSH Past Medical History Medical History Abnormal finding on echocardiogram Acute dyspnea Acute on chronic systolic and diastolic heart failure, NYHA class 3 Acute worsening of stage 3 chronic kidney disease MYNOR (acute kidney injury) Anemia Anemia in chronic kidney disease (CKD) Asthma Atypical chest pain Back pain Blind right eye Bone infection Cardiomyopathy Cellulitis Cellulitis and abscess of foot delivery delivered Chest pain CHF (congestive heart failure) (~06/07/22) CKD (chronic kidney disease) CKD (chronic kidney disease) CKD (chronic kidney disease) stage 4, GFR 15-29 ml/min Depression with anxiety Diabetes Diabetic retinopathy DM foot ulcer Elevated troponin ESRD needing dialysis Essential hypertension Fever Generalized edema HFrEF (heart failure with reduced ejection fraction) HTN (hypertension) Hypertension (~06/10/22) Metabolic acidosis Migraine Osteomyelitis PAD (peripheral artery disease) Pleural effusion test positive test positive Sepsis Severe anemia Tachycardia Type 2 diabetes mellitus with hyperglycemia, with long-term current use of insulin Family History Family History Mother Coronary artery disease Myocardial infarction Stroke Diabetes mellitus Father Myocardial infarction Surgical History Surgical History History of transmetatarsal amputation of foot S/P transmetatarsal amputation of foot Social History Social History Household Members: Significant Other and Family Household Members Other:: Sister, [id number], nephew Housing: Apartment Do you presently have visiting nurse or other home services: No Alcohol intake: never Patient Tobacco Use Status: Never used Tobacco e-Cigarette/Vaping Use: Never Used Second Hand Smoke Exposure: No Advance Directives Date on File: 03/08/20 service: No Current occupational status: unemployed and disabled Gender identity: Female Meds Allergies Allergy/AdvReac Type Severity Reaction Status Date / Time morphine [MORPHINE] Allergy Intermediate Itching Verified 09/10/22 19:39 azithromycin [From Zithromax] Allergy Hives Verified 09/10/22 19:39 gabapentin Allergy Facial Verified 09/10/22 19:39 Swelling tramadol Allergy Facial Verified 09/10/22 19:39 Swelling vancomycin Allergy Hives Verified 09/10/22 19:39 Active Medications: Current Medications Acetaminophen (Acetaminophen 325 Mg Tablet) 650 mg PO Q6H PRN PRN Reason: Pain, Mild (Pain Scale 1-3) Aspirin (Aspirin Enteric Coated 81 Mg Tablet.) 81 mg PO DAILY [facility] Last Admin: 09/18/22 14:32 Dose: Not Given Atorvastatin Calcium (Atorvastatin Calcium 40 Mg Tablet) 40 mg PO BEDTIME [facility] Last Admin: 09/17/22 20:51 Dose: 40 mg Carvedilol (Carvedilol 12.5 Mg Tablet) 12.5 mg PO BID [facility]; Protocol Last Admin: 09/18/22 14:32 Dose: Not Given Clopidogrel Bisulfate (Clopidogrel Bisulfate 75 Mg Tablet) 75 mg PO DAILY [facility] Last Admin: 09/18/22 14:32 Dose: Not Given Dextrose (Dextrose 50 % 25 Gm/50 Ml Syringe) 25 gm IVPUSH Q15M PRN; Protocol PRN Reason: per Hypoglycemia Standing Ord. Diphenhydramine HCl (Diphenhydramine Hcl 25 Mg Capsule) 25 mg PO Q6H PRN PRN Reason: Itching Last Admin: 09/17/22 20:52 Dose: 25 mg Docusate Sodium (Docusate Sodium 100 Mg Capsule) 100 mg PO DAILY PRN PRN Reason: constipation Glucose (Glucose Gel 15 Gm Gel..Gram.) 15 gm PO Q15M PRN; Protocol PRN Reason: per Hypoglycemia Standing Ord. Heparin Sodium (Porcine) (Heparin Sodium,Porcine 5,000 Unit/Ml Vial) 5,000 unit SUBCUT Q12H [facility] Last Admin: 09/18/22 14:34 Dose: Not Given Hydralazine HCl (Hydralazine Hcl 25 Mg Tablet) 75 mg PO TID [facility]; Protocol Last Admin: 09/18/22 14:32 Dose: Not Given Promethazine HCl 12.5 mg/ (Sodium Chloride) 50.5 mls @ 202 mls/hr IV Q6H PRN PRN Reason: Vomiting Last Infusion: 09/17/22 10:20 Dose: Infused Insulin Human Lispro (Insulin Lispro 100 Unit/Ml 3 Ml Vial) 0 unit SUBCUT QIDACHS [facility]; Protocol Last Admin: 09/18/22 14:33 Dose: Not Given Losartan Potassium (Losartan Potassium 25 Mg Tablet) 25 mg PO DAILY [facility]; Protocol Last Admin: 09/18/22 14:32 Dose: Not Given Melatonin (Melatonin 3 Mg Tablet) 6 mg PO BEDTIME PRN PRN Reason: Insomnia Nifedipine (Nifedipine Er 60 Mg Tab.Er.24) 60 mg PO DAILY [facility]; Protocol Last Admin: 09/18/22 14:33 Dose: Not Given Omeprazole (Omeprazole 40 Mg Capsule.Dr) 40 mg PO DAILY@0630 [facility] Last Admin: 09/18/22 05:31 Dose: Not Given Oxycodone HCl (Oxycodone Hcl Immed Release 5 Mg Tablet) 5 mg PO Q6H PRN PRN Reason: Pain, Severe (Pain Scale 7-10) Last Admin: 09/17/22 20:52 Dose: 5 mg Pharmacy Consult (Consult Rx Perform Med Rec) 1 each MISCELLANE ONCE PRN PRN Reason: Consult order Sodium Chloride (0.9 % Sodium Chloride Flush 3 Ml Syringe) 3 ml IVFLUSH QSHIFT [facility] Last Admin: 09/18/22 08:56 Dose: Not Given Sucralfate (Sucralfate 1 Gm Tablet) 1 gm PO BID [facility] Last Admin: 09/18/22 14:33 Dose: Not Given Torsemide (Torsemide 20 Mg Tablet) 40 mg PO BID [facility]; Protocol Last Admin: 09/18/22 14:33 Dose: Not Given Home Medications Medication Instructions Recorded Confirmed Last Taken Type docusate sodium 100 mg capsule 100 mg PO DAILY PRN constipation 08/13/22 09/16/22 Unknown History oxycodone 5 mg tablet 5 mg PO Q6H PRN severe pain 08/13/22 09/16/22 Unknown History hydralazine 25 mg tablet 75 mg PO TID 08/25/22 09/16/22 08/24/22 History Physical Exam Vital Signs: Vital Signs: Last Vital Signs Temp 98.4 F 09/18/22 07:18 Pulse 84 09/18/22 07:18 Resp 20 09/18/22 07:18 BP 125/60 09/18/22 07:18 Pulse Ox 97 09/18/22 07:18 O2 Del Method Nasal Cannula 09/18/22 07:18 O2 Flow Rate 2 09/18/22 07:18 Oxygen Flow Rate 2 09/15/22 14:58 BMI result Body Mass Index 33.4 Const: General: no acute distress Nutritional Appearance: well nourished Orientation/consciousness: patient oriented x3 Resp: Effort & Inspection: normal respiratory effort GI: Inspection: Yes normal to inspection Skin: General skin exam: induration and scars Neuro: General: patient oriented x3 Extrem: Other: Left foot, plantar surface with a 5 mm ulceration with surrounding callus formation. Base of the wound has granulation tissue with no necrotic tissue or abscess appreciated. Wound is minimally tender to palpation. A 2nd callus located slightly distal to this is healed with no open wound. There is tenderness to palpation of the lateral malleolus but no open wound or erythema. Tenderness noted with range of motion at the ankle. Results Labs 09/15/22 16:48 09/15/22 16:48 Labs: Abnormal lab results 09/18/22 09/18/22 Range/Units 07:11 14:08 POC Glucose 116 H 163 H (60-115) mg/dL All other labs normal. Assessment and Plan (1) Diabetic foot ulcer associated with type 2 diabetes mellitus: Status: Acute Plan 32-year-old female patient with diabetes mellitus and a left plantar foot ulceration. Wounds are clean with evidence of callus formation surrounding the wound. No underlying abscess could be appreciated. There is tenderness in the lateral malleolus of the left ankle with no apparent infection present. Recommend applying silver alginate and dry sterile dressings to the foot ulcer. Will wait wound care evaluation. Time Spent With Patient Time: Total time managing care of this patient today ____ minutes. Procedures Date of Service Date of Service: 09/18/22
[2022-09-18 15:27] VITALS: BP 117/60; PULSE 78; RESP 18; TEMP 36.6; O2SAT 96
[2022-09-18] MEDS: hydrALAZINE HCl 25 MG TABLET 75 MG PO ×2 (16:26→23:34)
[2022-09-18] MEDS: 0.9 % Sodium Chloride Flush 3 ML SYRINGE IVFLUSH ×2 (16:27→23:36)
[2022-09-18 19:16] VITALS: BP 109/56; PULSE 80; RESP 16; TEMP 36.1; O2SAT 97
[2022-09-18 20:30] LABS: Glucose, Whole Blood 169 mg/dL (60-115)
[2022-09-18 23:23] VITALS: BP 102/60; PULSE 81; RESP 18; TEMP 36.6; O2SAT 93
[2022-09-18] MEDS: carvediloL 12.5 MG TABLET PO (23:34)
[2022-09-18] MEDS: Sucralfate 1 GM TABLET PO (23:34)
[2022-09-18] MEDS: Atorvastatin Calcium 40 MG TABLET PO (23:34)
[2022-09-18] MEDS: Torsemide 20 MG TABLET 40 MG PO (23:34)
[2022-09-18] MEDS: Insulin Lispro 100 UNIT/ML 3 ML VIAL SUBCUT (23:35)
[2022-09-19 03:24] VITALS: BP 139/78; PULSE 79; RESP 18; TEMP 36.4; O2SAT 98
[2022-09-19 07:05] LABS: Glucose, Whole Blood 69 mg/dL (60-115)
[2022-09-19 07:10] VITALS: BP 142/75; PULSE 86; RESP 20; TEMP 37.4; O2SAT 98
--- NOTE | 2022-09-19 09:24 | PM.PNNEP ---
Subjective Subjective Date of Service: 09/19/22 Interval history: complains of right foot pain; BP is more control. Physical Exam Vital Signs: Vital Signs: Last Vital Signs Temp 99.4 F 09/19/22 07:10 Pulse 86 09/19/22 07:10 Resp 20 09/19/22 07:10 BP 142/75 H 09/19/22 07:10 Pulse Ox 98 09/19/22 07:10 O2 Del Method Room Air 09/19/22 07:10 O2 Flow Rate 2 09/18/22 19:16 Oxygen Flow Rate 2 09/15/22 14:58 BMI result Body Mass Index 33.4 Const: General: no acute distress Nutritional Appearance: well nourished Orientation/consciousness: patient oriented x3 Resp: Effort & Inspection: normal respiratory effort GI: Inspection: Yes normal to inspection Skin: General skin exam: induration and scars Neuro: General: patient oriented x3 Extrem: Other: Left foot, plantar surface with a 5 mm ulceration with surrounding callus formation. Base of the wound has granulation tissue with no necrotic tissue or abscess appreciated. Wound is minimally tender to palpation. A 2nd callus located slightly distal to this is healed with no open wound. There is tenderness to palpation of the lateral malleolus but no open wound or erythema. Tenderness noted with range of motion at the ankle. Objective Data Labs 09/15/22 16:48 09/15/22 16:48 Labs: Laboratory Results - last 24 hr 09/18/22 09/18/22 09/19/22 14:08 20:23 06:58 POC Glucose 163 H 169 H 69 Procedures Date of Service Date of Service: 09/19/22 Assessment & Plan Assessment and plan (1) End-stage renal disease (ESRD): Status: Resolved (2) Hypertension: Status: Acute (3) HFrEF (heart failure with reduced ejection fraction): Status: Acute (4) Anemia: Status: Acute Plan s/p HD yesterday known ESRD on HD at [facility] presented with HTN and CHF h/o HFrEF REC HD per schedule Vol removal as tolerated nifedipine as ordered phosphate binders VIPUL For D/c today Time Spent With Patient Time: Total time managing care of this patient today ____ minutes. Progress Note: Quality Stroke Does the patient have a stroke diagnosis?: No
[2022-09-19] MEDS: Torsemide 20 MG TABLET 40 MG PO ×2 (09:44→20:42)
[2022-09-19] MEDS: carvediloL 12.5 MG TABLET PO (09:45)
[2022-09-19] MEDS: Losartan Potassium 25 MG TABLET PO (09:45)
[2022-09-19] MEDS: Clopidogrel Bisulfate 75 MG TABLET PO (09:45)
[2022-09-19] MEDS: hydrALAZINE HCl 25 MG TABLET 75 MG PO ×2 (09:45→16:45)
[2022-09-19] MEDS: NIFEdipine ER 60 MG TAB.ER.24 PO (09:46)
[2022-09-19] MEDS: Aspirin Enteric Coated 81 MG TABLET.DR PO (09:46)
[2022-09-19 11:03] LABS: Glucose, Whole Blood 131 mg/dL (60-115)
[2022-09-19 11:05] VITALS: BP 152/83; PULSE 90; RESP 20; TEMP 36.7; O2SAT 98
--- NOTE | 2022-09-19 12:04 | P.CONWO_ITS ---
History of Present Illness Data of Consult Service Date: 09/19/22 Requesting physician: Steve Shepherd Primary Care Provider: Abdon Beard MD [facility] Reason for consult: diabetic foot ulcer 32 year old female with brittle diabetes and ESRD on HD who began to skip HD and got very sick, short of breath. She has CHF and hypertension. She has peripheral arterial disease. Believe she is followed by Dr. Arias for this. She has anemia of chronic disease. Her shortness of breath is now resolved. She was hospitalized recently for gastroparesis but denies nausea today. I am fairly certain we have seen her before. 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 Were asked to look at her left plantar foot ulcer. She has an offloading shoe at home. She had a cast on her right foot which he lped heal her right foot wound quickly. She is mostly in the wheelchair at home. At the moment, there is no alternative assistive device. She complains of odor on occasion from the left foot. No fever or redness. I looked at her sneakers and she has a TMA prosthetic in her right shoe. No modification of the left sneaker. Review of Systems Review of Systems: Nausea is better. Shortness of breath is better. She is blind. Denies fever. Complains of odor from the left foot but no drainage. Yes all other systems are reviewed and are negative [facility] Medical History Abnormal finding on echocardiogram Acute dyspnea Acute on chronic systolic and diastolic heart failure, NYHA class 3 Acute worsening of stage 3 chronic kidney disease MYNOR (acute kidney injury) Anemia Anemia in chronic kidney disease (CKD) Asthma Atypical chest pain Back pain Blind right eye Bone infection Cardiomyopathy Cellulitis Cellulitis and abscess of foot delivery delivered Chest pain CHF (congestive heart failure) (~06/07/22) CKD (chronic kidney disease) CKD (chronic kidney disease) CKD (chronic kidney disease) stage 4, GFR 15-29 ml/min Depression with anxiety Diabetes Diabetic retinopathy DM foot ulcer Elevated troponin ESRD needing dialysis Essential hypertension Fever Generalized edema HFrEF (heart failure with reduced ejection fraction) HTN (hypertension) Hypertension (~06/10/22) Metabolic acidosis Migraine Osteomyelitis PAD (peripheral artery disease) Pleural effusion test positive test positive Sepsis Severe anemia Tachycardia Type 2 diabetes mellitus with hyperglycemia, with long-term current use of insulin Family History Mother Coronary artery disease Myocardial infarction Stroke Diabetes mellitus Father Myocardial infarction Surgical History History of transmetatarsal amputation of foot S/P transmetatarsal amputation of foot Social History Household Members: Significant Other and Family Household Members Other:: Sister, [id number], nephew Housing: Apartment Do you presently have visiting nurse or other home services: No Alcohol intake: never Patient Tobacco Use Status: Never used Tobacco e-Cigarette/Vaping Use: Never Used Second Hand Smoke Exposure: No Advance Directives Date on File: 03/08/20 service: No Current occupational status: unemployed and disabled Gender identity: Female Meds Allergies Allergy/AdvReac Type Severity Reaction Status Date / Time morphine [MORPHINE] Allergy Intermediate Itching Verified 09/10/22 19:39 azithromycin [From Zithromax] Allergy Hives Verified 09/10/22 19:39 gabapentin Allergy Facial Verified 09/10/22 19:39 Swelling tramadol Allergy Facial Verified 09/10/22 19:39 Swelling vancomycin Allergy Hives Verified 09/10/22 19:39 Active Medications: Current Medications Acetaminophen (Acetaminophen 325 Mg Tablet) 650 mg PO Q6H PRN PRN Reason: Pain, Mild (Pain Scale 1-3) Aspirin (Aspirin Enteric Coated 81 Mg Tablet.) 81 mg PO DAILY [facility] Last Admin: 09/19/22 09:46 Dose: 81 mg Atorvastatin Calcium (Atorvastatin Calcium 40 Mg Tablet) 40 mg PO BEDTIME [facility] Last Admin: 09/18/22 23:34 Dose: 40 mg Carvedilol (Carvedilol 12.5 Mg Tablet) 12.5 mg PO BID [facility]; Protocol Last Admin: 09/19/22 09:45 Dose: 12.5 mg Clopidogrel Bisulfate (Clopidogrel Bisulfate 75 Mg Tablet) 75 mg PO DAILY [facility] Last Admin: 09/19/22 09:45 Dose: 75 mg Dextrose (Dextrose 50 % 25 Gm/50 Ml Syringe) 25 gm IVPUSH Q15M PRN; Protocol PRN Reason: per Hypoglycemia Standing Ord. Diphenhydramine HCl (Diphenhydramine Hcl 25 Mg Capsule) 25 mg PO Q6H PRN PRN Reason: Itching Last Admin: 09/17/22 20:52 Dose: 25 mg Docusate Sodium (Docusate Sodium 100 Mg Capsule) 100 mg PO DAILY PRN PRN Reason: constipation Glucose (Glucose Gel 15 Gm Gel..Gram.) 15 gm PO Q15M PRN; Protocol PRN Reason: per Hypoglycemia Standing Ord. Heparin Sodium (Porcine) (Heparin Sodium,Porcine 5,000 Unit/Ml Vial) 5,000 unit SUBCUT Q12H [facility] Last Admin: 09/19/22 11:16 Dose: Not Given Hydralazine HCl (Hydralazine Hcl 25 Mg Tablet) 75 mg PO TID [facility]; Protocol Last Admin: 09/19/22 09:45 Dose: 75 mg Promethazine HCl 12.5 mg/ (Sodium Chloride) 50.5 mls @ 202 mls/hr IV Q6H PRN PRN Reason: Vomiting Last Infusion: 09/17/22 10:20 Dose: Infused Insulin Human Lispro (Insulin Lispro 100 Unit/Ml 3 Ml Vial) 0 unit SUBCUT QIDACHS [facility]; Protocol Last Admin: 09/19/22 11:16 Dose: Not Given Losartan Potassium (Losartan Potassium 25 Mg Tablet) 25 mg PO DAILY [facility]; Protocol Last Admin: 09/19/22 09:45 Dose: 25 mg Melatonin (Melatonin 3 Mg Tablet) 6 mg PO BEDTIME PRN PRN Reason: Insomnia Nifedipine (Nifedipine Er 60 Mg Tab.Er.24) 60 mg PO DAILY [facility]; Protocol Last Admin: 09/19/22 09:46 Dose: 60 mg Omeprazole (Omeprazole 40 Mg Capsule.Dr) 40 mg PO DAILY@0630 [facility] Last Admin: 09/19/22 06:05 Dose: Not Given Oxycodone HCl (Oxycodone Hcl Immed Release 5 Mg Tablet) 5 mg PO Q6H PRN PRN Reason: Pain, Severe (Pain Scale 7-10) Last Admin: 09/17/22 20:52 Dose: 5 mg Pharmacy Consult (Consult Rx Perform Med Rec) 1 each MISCELLANE ONCE PRN PRN Reason: Consult order Sodium Chloride (0.9 % Sodium Chloride Flush 3 Ml Syringe) [facility] Last Admin: 09/19/22 09:46 Dose: Not Given Sucralfate (Sucralfate 1 Gm Tablet) 1 gm PO BID [facility] Last Admin: 09/19/22 09:45 Dose: Not Given Torsemide (Torsemide 20 Mg Tablet) 40 mg PO BID [facility]; Protocol Last Admin: 09/19/22 09:44 Dose: 40 mg Home Medications Medication Instructions Recorded Confirmed Last Taken Type docusate sodium 100 mg capsule 100 mg PO DAILY PRN constipation 08/13/22 09/16/22 Unknown History oxycodone 5 mg tablet 5 mg PO Q6H PRN severe pain 08/13/22 09/16/22 Unknown History hydralazine 25 mg tablet 75 mg PO TID 08/25/22 09/16/22 08/24/22 History Physical Exam Vital Signs and Narrative: Vital Signs: Last Vital Signs Temp 98.1 F 09/19/22 11:05 Pulse 90 09/19/22 11:05 Resp 20 09/19/22 11:05 BP 152/83 H 09/19/22 11:05 Pulse Ox 98 09/19/22 11:05 O2 Del Method Room Air 09/19/22 11:05 O2 Flow Rate 2 09/18/22 19:16 Oxygen Flow Rate 2 09/15/22 14:58 BMI result Body Mass Index 33.4 Right TMA looks to be in midfoot amputation, perhaps but there is no open wound on her right foot. On her left foot, she has had a great toe amputation in 8 5th ray amputation. The 2nd 3rd and 4th digits are intact. There are no dorsal ulcerations on her left foot. The dorsalis pedis pulses bounding. There is a callus on the metatarsal on the plantar surface of either the 1st or 2nd ray. The open ulcer on the plantar surface is midfoot. The surrounding callus is about 2 cm. The centralized open area is about 3 mm and needs debridement. No expressible pus. No surrounding erythema or edema. No redness, warmth or st reaking. Results Labs 09/15/22 16:48 09/15/22 16:48 Labs: Laboratory Results - last 24 hr 09/18/22 09/18/22 09/19/22 14:08 20: 06:58 POC Glucose 163 H 169 H 69 09/19/22 10:57 POC Glucose 131 H Assessment and Plan (1) Diabetic foot ulcer associated with type 2 diabetes mellitus: Status: Acute Plan 32-year-old female with extensive diabetes history, history of right transmeta tarsal amputation, left toe amputations and new left plantar midfoot diabetic foot ulcer. Send the patient to the wound clinic upon discharge. We can see her in the next week or 2. Discharge instructions can include silver alginate as recommended by General surgery. Our plan for her might be to carry out debridement in the clinic and she is eager to try total contact cast on her left foot if it is feasible. Drainage management in the meantime is the best approach. I do not think will be able to obtain modification of footwear until she sees in the clinic. With her blindness, syncope difficult for her to use orthopedic felt to offload the midfoot within her current sneakers and so she will bring us or surgical shoe at home to modify in the clinic. Continue with good glycemic control and regularly scheduled hemodialysis for edema management among other reasons. Time Spent With Patient Time: Total time managing care of this patient today ____ minutes.
[2022-09-19 15:03] VITALS: BP 155/78; PULSE 87; RESP 16; TEMP 37.1; O2SAT 99
--- NOTE | 2022-09-19 16:11 | HO.PM.IMPN ---
Subjective Subjective Date of Service: 09/19/22 Interval History: intermittent nausea that is likely chronic. Otherwise doing well. No acute issues overnight Review of Systems Denies chest pain Denies shortness of breath Denies nausea vomiting diarrhea Denies fever chills Physical Exam Vital Signs: Vital Signs: Last Vital Signs Temp 98.7 F 09/19/22 15:03 Pulse 87 09/19/22 15:03 Resp 16 09/19/22 15:03 BP 155/78 H 09/19/22 15:03 Pulse Ox 99 09/19/22 15:03 O2 Del Method Room Air 09/19/22 15:03 O2 Flow Rate 2 09/18/22 19:16 Oxygen Flow Rate 2 09/15/22 14:58 BMI result Body Mass Index 33.4 Const: Other: awake alert no acute distress Chest: Other: tunnel catheter right upper chest Resp: Other: bilateral and expiratry crackles Cardio: Other: no S4; positive S1-S2; no S3 murmurs rubs or gallops GI: Other: soft nontender nondistended normoactive bowel sounds Extrem: Other: no edema bilaterally. Tender ventral right foot Objective Data Active Medications Acetaminophen (Acetaminophen 325 Mg Tablet) 650 mg PO Q6H PRN PRN Reason: Pain, Mild (Pain Scale 1-3) Aspirin (Aspirin Enteric Coated 81 Mg Tablet.) [address] [facility] Last Admin: 09/19/22 09:46 Dose: 81 mg Documented By: DAE Atorvastatin Calcium (Atorvastatin Calcium 40 Mg Tablet) [address] [facility] Last Admin: 09/18/22 23:34 Dose: 40 mg Documented By: BERNABE Carvedilol (Carvedilol 12.5 Mg Tablet) 12.[address] [facility]; Protocol Last Admin: 09/19/22 09:45 Dose: 12.5 mg Documented By: DAE Clopidogrel Bisulfate (Clopidogrel Bisulfate 75 Mg Tablet) [address] [facility] Last Admin: 09/19/22 09:45 Dose: 75 mg Documented By: DAE Dextrose (Dextrose 50 % 25 Gm/50 Ml Syringe) 25 gm IVPUSH Q15M PRN; Protocol PRN Reason: per Hypoglycemia Standing Ord. Diphenhydramine HCl (Diphenhydramine Hcl 25 Mg Capsule) 25 mg PO Q6H PRN PRN Reason: Itching Last Admin: 09/17/22 20:52 Dose: 25 mg Documented By: LOC Docusate Sodium (Docusate Sodium 100 Mg Capsule) 100 mg PO DAILY PRN PRN Reason: constipation Glucose (Glucose Gel 15 Gm Gel..Gram.) 15 gm PO Q15M PRN; Protocol PRN Reason: per Hypoglycemia Standing Ord. Heparin Sodium (Porcine) (Heparin Sodium,Porcine 5,000 Unit/Ml Vial) 5,[address] [facility] Last Admin: 09/19/22 11:16 Dose: Not Given Documented By: DAE Non-Admin Reason: Patient Refused Hydralazine HCl (Hydralazine Hcl 25 Mg Tablet) [address] [facility]; Protocol Last Admin: 09/19/22 09:45 Dose: 75 mg Documented By: DAE Promethazine HCl 12.5 mg/ (Sodium Chloride) 50.5 mls @ 202 mls/hr IV Q6H PRN PRN Reason: Vomiting Last Infusion: 09/19/22 14:36 Dose: 0 mls/hr Documented By: DAE Insulin Human Lispro (Insulin Lispro 100 Unit/Ml 3 Ml Vial) [address] [facility]; Protocol Last Admin: 09/19/22 11:16 Dose: Not Given Documented By: DAE Non-Admin Reason: No Insulin Coverage Losartan Potassium (Losartan Potassium 25 Mg Tablet) [address] [facility]; Protocol Last Admin: 09/19/22 09:45 Dose: 25 mg Documented By: DAE Melatonin (Melatonin 3 Mg Tablet) 6 mg PO BEDTIME PRN PRN Reason: Insomnia Nifedipine (Nifedipine Er 60 Mg Tab.Er.24) [address] [facility]; Protocol Last Admin: 09/19/22 09:46 Dose: 60 mg Documented By: DAE Omeprazole (Omeprazole 40 Mg Capsule.Dr) 40 mg PO DAILY@0630 [facility] Last Admin: 09/19/22 06:05 Dose: Not Given Documented By: BERNABE Non-Admin Reason: Patient Refused Oxycodone HCl (Oxycodone Hcl Immed Release 5 Mg Tablet) 5 mg PO Q6H PRN PRN Reason: Pain, Severe (Pain Scale 7-10) Last Admin: 09/17/22 20:52 Dose: 5 mg Documented By: LOC Pharmacy Consult (Consult Rx Perform Med Rec) 1 each MISCELLANE ONCE PRN PRN Reason: Consult order Sodium Chloride (0.9 % Sodium Chloride Flush 3 Ml Syringe) [address] [facility] Last Admin: 09/19/22 09:46 Dose: Not Given Documented By: DAE Non-Admin Reason: No Access Sucralfate (Sucralfate 1 Gm Tablet) [address] [facility] Last Admin: 09/19/22 09:45 Dose: Not Given Documented By: DAE Non-Admin Reason: Patient Refused Torsemide (Torsemide 20 Mg Tablet) [address] [facility]; Protocol Last Admin: 09/19/22 09:44 Dose: 40 mg Documented By: DAE Labs 09/15/22 16:48 09/15/22 16:48 Labs: Laboratory Results - last 24 hr 09/18/22 09/19/22 09/19/22 20:23 06:58 10:57 POC Glucose 169 H 69 131 H Assessment and Plan (1) Hypertensive emergency: Status: Acute (2) Acute on chronic systolic and diastolic heart failure, NYHA class 3: Status: Acute Plan 31-year-old female with pertinent history of essential hypertension, congestive heart failure with reduced ejection fraction, insulin-dependent type 2 diabetes mellitus with diabetic retinopathy, mood disorder, PAD status post transmetatarsal amputation of foot, ESRD on HD, diabetic gastroparesis, chronic hypoxemic respiratory failure who presents to the emergency department for evaluation of nausea/vomiting, elevated blood pressure and dyspnea. found to be in CHF secondary to missed hemodialysis. Returned to baseline after treatment 1.Hypertensive emergency (resolved) - acceptable control on current therapies - adjust as indicated - outpatient follow-up 3. Acute on chronic congestive heart failure with reduced ejection fraction - resolved with hemodialysis - markedly improved with med compliance secondary to hospitalization - continue current therapies 4.ESRD on HD - HD Sunday as per Renal -follow renals/divalents -phosphate binders as ordered -likely discharge after HD tomorrow 5.Insulin-dependent type 2 diabetes mellitus.? - acceptable control on lispro correctional scale - resume glipizide as outpatient - outpatient follow-up with wound clinic 6.CAD - dual antiplatelet therapy - statin Heparin Full code requires ongoing hospitalization for hemodialysis pending evaluation of right foot diabetic foot ulcer Time Spent With Patient Time: Total time managing care of this patient today ____ minutes. Quality Stroke Does the patient have a stroke diagnosis?: No VTE Prior VTE?: No VTE Risk Level:: Medical - moderate - high VTE Device Contraindication: Treatment Not Indicated VTE Drug Contraindication: N/A - Med Ordered
[2022-09-19 16:22] LABS: Glucose, Whole Blood 117 mg/dL (60-115)
[2022-09-19] MEDS: 0.9 % Sodium Chloride Flush 3 ML SYRINGE IVFLUSH ×2 (16:45→20:45)
[2022-09-19 19:10] VITALS: BP 90/60; PULSE 78; RESP 16; TEMP 36.7; O2SAT 98
[2022-09-19 20:32] LABS: Glucose, Whole Blood 179 mg/dL (60-115)
[2022-09-19] MEDS: Atorvastatin Calcium 40 MG TABLET PO (20:42)
[2022-09-19] MEDS: Sucralfate 1 GM TABLET PO (20:42)
[2022-09-19] MEDS: Insulin Lispro 100 UNIT/ML 3 ML VIAL SUBCUT (20:44)
[2022-09-19 23:23] VITALS: BP 109/60; PULSE 79; RESP 18; TEMP 36.4; O2SAT 98
[2022-09-20 03:40] VITALS: BP 125/70; PULSE 79; RESP 18; TEMP 36.2; O2SAT 99
[2022-09-20 07:06] LABS: Glucose, Whole Blood 134 mg/dL (60-115)
[2022-09-20 07:11] VITALS: BP 140/70; PULSE 90; RESP 20; TEMP 36.4; O2SAT 98
[2022-09-20] MEDS: NIFEdipine ER 60 MG TAB.ER.24 PO (07:20)
[2022-09-20] MEDS: Aspirin Enteric Coated 81 MG TABLET.DR PO (07:20)
[2022-09-20] MEDS: Losartan Potassium 25 MG TABLET PO (07:20)
[2022-09-20] MEDS: Torsemide 20 MG TABLET 40 MG PO ×2 (07:20→19:34)
[2022-09-20] MEDS: Clopidogrel Bisulfate 75 MG TABLET PO (07:20)
[2022-09-20] MEDS: hydrALAZINE HCl 25 MG TABLET 75 MG PO ×2 (07:20→19:33)
[2022-09-20] MEDS: 0.9 % Sodium Chloride Flush 3 ML SYRINGE IVFLUSH ×3 (07:20→19:34)
[2022-09-20] MEDS: carvediloL 12.5 MG TABLET PO ×2 (07:20→19:33)
--- NOTE | 2022-09-20 09:04 | P.PNNP_ITS ---
Subjective Subjective Date of Service: 09/20/22 Interval history: seen and examined no complaints feels good this morning Physical Exam Vital Signs: Vital Signs: Last Vital Signs Temp 97.6 F 09/20/22 07:11 Pulse 90 09/20/22 07:11 Resp 20 09/20/22 07:11 BP 140/70 H 09/20/22 07:11 Pulse Ox 98 09/20/22 07:11 O2 Del Method Room Air 09/20/22 07:11 O2 Flow Rate 2 09/18/22 19:16 Oxygen Flow Rate 2 09/15/22 14:58 BMI result Body Mass Index 33.4 Const: General: alert and awake HEENT: Head: Yes normocephalic and Yes atraumatic Neck: Neck: Yes supple Resp: Auscultation: diminished lung sounds Cardio: Heart sounds: S1 normal heart sound present and S2 normal heart sound present GI: Palpation (GI): Soft to palpation and nontender Extrem: Right upper extremity: no edema Objective Data Labs 09/15/22 16:48 09/15/22 16:48 Labs: Laboratory Results - last 24 hr 09/19/22 09/19/22 09/19/22 10:57 16:02 20:27 POC Glucose 131 H 117 H 179 H 09/20/22 06:59 POC Glucose 134 H Procedures Date of Service Date of Service: 09/20/22 Assessment & Plan Assessment and plan (1) End-stage renal disease (ESRD): Status: Resolved (2) Hypertension: Status: Acute (3) HFrEF (heart failure with reduced ejection fraction): Status: Acute (4) Anemia: Status: Acute Plan known ESRD on HD - at [facility] [facility] presented with HTN and CHF h/o HFrEF REC HD today UF as tolerated renal diet phosphate binders VIPUL Time Spent With Patient Time: Total time managing care of this patient today ____ minutes. Progress Note: Quality Stroke Does the patient have a stroke diagnosis?: No
[2022-09-20 10:59] LABS: Glucose, Whole Blood 172 mg/dL (60-115)
[2022-09-20 11:08] VITALS: BP 102/61; PULSE 75; RESP 20; TEMP 36.1; O2SAT 99
[2022-09-20 11:27] LABS: Anion Gap 13 (12-20); Blood Urea Nitrogen 36 mg/dL (9-16); Calcium 8.8 mg/dL (8.4-10.2); Carbon Dioxide 22 mmol/L (22-29); Chloride 104 mmol/L (96-108); Glucose Random 183 mg/dL (60-115); Potassium 3.4 mmol/L (3.3-5.1); Sodium 136 mmol/L (135-145)
[2022-09-20 11:34] LABS: Hemoglobin 8.6 g/dl (12.0-16.0)
[2022-09-20 11:37] LABS: Creatinine Clr Calc Pharmacy 18.4; Estimated Glomerular Filt Rate 12
--- NOTE | 2022-09-20 13:21 | MHC.CM.PN ---
EMR reviewed and per MD rounds, pt not medically cleared for D/C today, anticipating D/C home tomorrow after HD. CM will continue to follow.
[2022-09-20] MEDS: diphenhydrAMINE HCL 25 MG CAPSULE PO ×2 (13:53→19:34)
--- NOTE | 2022-09-20 14:04 | HO.PM.IMPN ---
Subjective Subjective Date of Service: 09/20/22 Interval History: no acute issues overnight. Increased foot pain today. Scheduled for hemodialysis Review of Systems Denies chest pain Denies shortness of breath Denies nausea vomiting diarrhea Denies fever chills Physical Exam Vital Signs: Vital Signs: Last Vital Signs Temp 97.0 F 09/20/22 11:08 Pulse 75 09/20/22 11:08 Resp 20 09/20/22 11:08 BP 102/61 09/20/22 11:08 Pulse Ox 99 09/20/22 11:08 O2 Del Method Room Air 09/20/22 11:08 O2 Flow Rate 2 09/18/22 19:16 Oxygen Flow Rate 2 09/15/22 14:58 BMI result Body Mass Index 33.4 Const: Other: awake alert no acute distress Chest: Other: tunnel catheter right upper chest Resp: Other: bilateral and expiratry crackles Cardio: Other: no S4; positive S1-S2; no S3 murmurs rubs or gallops GI: Other: soft nontender nondistended normoactive bowel sounds Extrem: Other: no edema bilaterally. Tender ventral right foot Objective Data Active Medications Acetaminophen (Acetaminophen 325 Mg Tablet) 650 mg PO Q6H PRN PRN Reason: Pain, Mild (Pain Scale 1-3) Aspirin (Aspirin Enteric Coated 81 Mg Tablet.) 81 mg PO DAILY [facility] Last Admin: 09/20/22 07:20 Dose: 81 mg Documented By: DAE Atorvastatin Calcium (Atorvastatin Calcium 40 Mg Tablet) 40 mg PO BEDTIME [facility] Last Admin: 09/19/22 20:42 Dose: 40 mg Documented By: SAMSON Carvedilol (Carvedilol 12.5 Mg Tablet) 12.5 mg PO BID [facility]; Protocol Last Admin: 09/20/22 07:20 Dose: 12.5 mg Documented By: DAE Clopidogrel Bisulfate (Clopidogrel Bisulfate 75 Mg Tablet) 75 mg PO DAILY [facility] Last Admin: 09/20/22 07:20 Dose: 75 mg Documented By: DAE Dextrose (Dextrose 50 % 25 Gm/50 Ml Syringe) 25 gm IVPUSH Q15M PRN; Protocol PRN Reason: per Hypoglycemia Standing Ord. Diphenhydramine HCl (Diphenhydramine Hcl 25 Mg Capsule) 25 mg PO Q6H PRN PRN Reason: Itching Last Admin: 09/20/22 13:53 Dose: 25 mg Documented By: DAE Docusate Sodium (Docusate Sodium 100 Mg Capsule) 100 mg PO DAILY PRN PRN Reason: constipation Glucose (Glucose Gel 15 Gm Gel..Gram.) 15 gm PO Q15M PRN; Protocol PRN Reason: per Hypoglycemia Standing Ord. Heparin Sodium (Porcine) (Heparin Sodium,Porcine 5,000 Unit/Ml Vial) 5,000 unit SUBCUT Q12H [facility] Last Admin: 09/20/22 12:11 Dose: Not Given Documented By: DAE Non-Admin Reason: Patient Refused Hydralazine HCl (Hydralazine Hcl 25 Mg Tablet) 75 mg PO TID [facility]; Protocol Last Admin: 09/20/22 07:20 Dose: 75 mg Documented By: DAE Promethazine HCl 12.5 mg/ (Sodium Chloride) 50.5 mls @ 202 mls/hr IV Q6H PRN PRN Reason: Vomiting Last Infusion: 09/19/22 14:36 Dose: 0 mls/hr Documented By: DAE Insulin Human Lispro (Insulin Lispro 100 Unit/Ml 3 Ml Vial) 0 unit SUBCUT QIDACHS [facility]; Protocol Last Admin: 09/20/22 12:10 Dose: Not Given Documented By: DAE Non-Admin Reason: Patient Refused Losartan Potassium (Losartan Potassium 25 Mg Tablet) 25 mg PO DAILY [facility]; Protocol Last Admin: 09/20/22 07:20 Dose: 25 mg Documented By: DAE Melatonin (Melatonin 3 Mg Tablet) 6 mg PO BEDTIME PRN PRN Reason: Insomnia Nifedipine (Nifedipine Er 60 Mg Tab.Er.24) 60 mg PO DAILY [facility]; Protocol Last Admin: 09/20/22 07:20 Dose: 60 mg Documented By: DAE Omeprazole (Omeprazole 40 Mg Capsule.Dr) 40 mg PO DAILY@0630 [facility] Last Admin: 09/20/22 05:26 Dose: Not Given Documented By: ANTREA Non-Admin Reason: Patient Refused Oxycodone HCl (Oxycodone Hcl Immed Release 5 Mg Tablet) 5 mg PO Q6H PRN PRN Reason: Pain, Severe (Pain Scale 7-10) Last Admin: 09/17/22 20:52 Dose: 5 mg Documented By: LOC Pharmacy Consult (Consult Rx Perform Med Rec) 1 each MISCELLANE ONCE PRN PRN Reason: Consult order Sodium Chloride (0.9 % Sodium Chloride Flush 3 Ml Syringe) 3 ml IVFLUSH QSHIFT [facility] Last Admin: 09/20/22 13:53 Dose: 3 ml Documented By: DAE Sucralfate (Sucralfate 1 Gm Tablet) 1 gm PO BID [facility] Last Admin: 09/20/22 07:22 Dose: Not Given Documented By: DAE Non-Admin Reason: Patient Refused Torsemide (Torsemide 20 Mg Tablet) 40 mg PO BID [facility]; Protocol Last Admin: 09/20/22 07:20 Dose: 40 mg Documented By: DAE Labs 09/20/22 10:20 09/20/22 10:30 Labs: Laboratory Results - last 24 hr 09/19/22 09/19/22 09/20/22 16:02 20:27 06:59 Anion Gap Estim Creat Clear Calc Estimated GFR POC Glucose 117 H 179 H 134 H Random Glucose Calcium 09/20/22 09/20/22 10:30 10:52 Anion Gap 13 Estim Creat Clear Calc 18.4 Estimated GFR 12 POC Glucose 172 H Random Glucose 183 H Calcium 8.8 Assessment and Plan (1) Hypertensive emergency: Status: Acute (2) HFrEF (heart failure with reduced ejection fraction): Status: Acute (3) CKD (chronic kidney disease) stage 4, GFR 15-29 ml/min: Status: Acute Plan 31-year-old female with pertinent history of essential hypertension, congestive heart failure with reduced ejection fraction, insulin-dependent type 2 diabetes mellitus with diabetic retinopathy, mood disorder, PAD status post transmetatarsal amputation of foot, ESRD on HD, diabetic gastroparesis, chronic hypoxemic respiratory failure who presents to the emergency department for evaluation of nausea/vomiting, elevated blood pressure and dyspnea. found to be in CHF secondary to missed hemodialysis. Returned to baseline after treatment 1.Hypertensive emergency (resolved) - acceptable control on current therapies - adjust as indicated - outpatient follow-up 3. Acute on chronic congestive heart failure with reduced ejection fraction - resolved with hemodialysis - markedly improved with med compliance secondary to hospitalization - continue current therapies 4.ESRD on HD - HD Sunday as per Renal... late dialysis today -follow renals/divalents -phosphate binders as ordered - discharge in a.m. 5.Insulin-dependent type 2 diabetes mellitus.? - acceptable control on lispro correctional scale - resume glipizide as outpatient - outpatient follow-up with wound clinic 6.CAD - dual antiplatelet therapy - statin Heparin Full code requires ongoing hospitalization for hemodialysis pending evaluation of right foot diabetic foot ulcer Time Spent With Patient Time: Total time managing care of this patient today ____ minutes. Quality Stroke Does the patient have a stroke diagnosis?: No VTE Prior VTE?: No VTE Risk Level:: Medical - moderate - high VTE Device Contraindication: Treatment Not Indicated VTE Drug Contraindication: N/A - Med Ordered
[2022-09-20] MEDS: HYDROmorphone HCl 1 MG/ML SYRINGE IVPUSH (14:27)
[2022-09-20 16:31] LABS: Glucose, Whole Blood 156 mg/dL (60-115)
[2022-09-20 18:56] VITALS: BP 136/74; PULSE 85; RESP 20; TEMP 36; O2SAT 99
[2022-09-20] MEDS: Atorvastatin Calcium 40 MG TABLET PO (19:33)
[2022-09-20] MEDS: Sucralfate 1 GM TABLET PO (19:33)
[2022-09-20 21:05] LABS: Glucose, Whole Blood 203 mg/dL (60-115)
[2022-09-20 23:30] VITALS: BP 126/61; PULSE 87; RESP 15; TEMP 36.1; O2SAT 94
[2022-09-21 03:47] VITALS: PULSE 85; RESP 16
[2022-09-21 07:25] VITALS: BP 141/67; PULSE 85; RESP 20; TEMP 36.6; O2SAT 99
[2022-09-21 07:57] LABS: Glucose, Whole Blood 109 mg/dL (60-115)
[2022-09-21] MEDS: carvediloL 12.5 MG TABLET PO (08:08)
[2022-09-21] MEDS: Aspirin Enteric Coated 81 MG TABLET.DR PO (08:08)
[2022-09-21] MEDS: hydrALAZINE HCl 25 MG TABLET 75 MG PO (08:08)
[2022-09-21] MEDS: Torsemide 20 MG TABLET 40 MG PO (08:08)
[2022-09-21] MEDS: NIFEdipine ER 60 MG TAB.ER.24 PO (08:09)
[2022-09-21] MEDS: Clopidogrel Bisulfate 75 MG TABLET PO (08:09)
[2022-09-21] MEDS: Losartan Potassium 25 MG TABLET PO (08:09)
[2022-09-21] MEDS: 0.9 % Sodium Chloride Flush 3 ML SYRINGE IVFLUSH (08:31)
--- NOTE | 2022-09-21 09:35 | PM.PNNEP ---
Subjective Subjective Date of Service: 09/21/22 Interval history: seen and examined had HD yesterday no complaints Physical Exam Vital Signs: Vital Signs: Last Vital Signs Temp 97.9 F 09/21/22 07:25 Pulse 85 09/21/22 07:25 Resp 20 09/21/22 07:25 BP 141/67 H 09/21/22 07:25 Pulse Ox 99 09/21/22 07:25 O2 Del Method Room Air 09/21/22 07:25 O2 Flow Rate 2 09/18/22 19:16 Oxygen Flow Rate 2 09/15/22 14:58 BMI result Body Mass Index 33.4 Const: General: alert and awake HEENT: Head: Yes normocephalic and Yes atraumatic Neck: Neck: Yes supple Resp: Auscultation: diminished lung sounds Cardio: Heart sounds: S1 normal heart sound present and S2 normal heart sound present GI: Palpation (GI): Soft to palpation and nontender Extrem: Right upper extremity: no edema Objective Data Labs 09/20/22 10:20 09/20/22 10:30 Labs: Laboratory Results - last 24 hr 09/20/22 09/20/22 09/20/22 10:20 10:30 10:52 Hgb 8.6 L Sodium 136 Potassium 3.4 Chloride 104 Carbon Dioxide 22 Anion Gap 13 BUN 36 H Creatinine 4.29 H* Estim Creat Clear Calc 18.4 Estimated GFR 12 POC Glucose 172 H Random Glucose 183 H Calcium 8.8 09/20/22 09/20/22 09/21/22 16:27 20:24 07:53 Hgb Sodium Potassium Chloride Carbon Dioxide Anion Gap BUN Creatinine Estim Creat Clear Calc Estimated GFR POC Glucose 156 H 203 H 109 Random Glucose Calcium Procedures Date of Service Date of Service: 09/21/22 Assessment & Plan Assessment and plan (1) End-stage renal disease (ESRD): Status: Resolved (2) Hypertension: Status: Acute (3) HFrEF (heart failure with reduced ejection fraction): Status: Acute (4) Anemia: Status: Acute Plan s/p HD yesterday known ESRD on HD at [facility] presented with HTN and CHF h/o HFrEF REC HD tomorrow renal diet phosphate binders VIPUL Time Spent With Patient Time: Total time managing care of this patient today ____ minutes. Progress Note: Quality Stroke Does the patient have a stroke diagnosis?: No
[2022-09-21 11:15] LABS: Glucose, Whole Blood 184 mg/dL (60-115)
[2022-09-21 11:35] VITALS: BP 156/72; PULSE 89; RESP 20; TEMP 36.4; O2SAT 99
--- NOTE | 2022-09-21 11:44 | P.DS_ITS ---
DS: Providers Provider Date of Service: 09/21/22 Date of admission: 09/16/22 00:24 Date of discharge: 09/21/22 Primary care physician: Abdon Beard MD Consults: 09/16/22 00:25 Consult to Cardiology [place]ine [place] [facility] [place] [facility] Reason for consultation: Hypertensive emergency, CHF Has provider been notified: Yes 09/16/22 00:28 Consult to Nephrology Routine Consulting Provider: Jason Sanchez Reason for consultation: ESRD 09/18/22 13:49 Consult to General Surgery [place]ine [place]ing [place] [facility] [place] [facility] Reason for consultation: foot wound Has provider been notified: Yes 09/18/22 13:51 Consult to Wound Care Routine Consulting Provider: Una Carrillo Reason for consultation: Diabetic venice ulcer Has provider been notified: No DS: Diagnosis Discharge Diagnosis (1) End-stage renal disease (ESRD): Status: Resolved (2) Hypertension: Status: Acute (3) HFrEF (heart failure with reduced ejection fraction): Status: Acute (4) Anemia: Status: Acute DS: Summary Hospital Course Hospital Course: 31-year-old female with pertinent history of essential hypertension, congestive heart failure with reduced ejection fraction, insulin-dependent type 2 diabetes mellitus with diabetic retinopathy, mood disorder, PAD status post transmetatarsal amputation of foot, ESRD on HD, diabetic gastroparesis, chronic hypoxemic respiratory failure who presents to the emergency department for evaluation of nausea/vomiting, elevated blood pressure and dyspnea.? Patient was recently admitted and discharged on 09/06 with gastroparesis.? Patient states that her blood pressure was found to be elevated when she went for hemodialysis on Sunday.? Patient has been having nausea and multiple episodes of nonbloody emesis on the day of presentation.? She missed her hemodialysis session.? Also complains of dyspnea.? She states that she has been compliant with her p.o. medications and her blood pressure does not seem to come down.? She denies fever, chills, chest discomfort, palpitation, abdominal pain, changes in bowel habits In the emergency department, patient's blood pressure found to be significantly elevated.? Imaging with interstitial pulmonary edema Hospital Course patient admitted to telemetry and received urgent dialysis with improvement in her blood pressure and her respiratory status. She was noted to have a wound on the ventral aspect of her foot for which surgery was consulted as well as wound care. per surgery wound is clear with evidence of callus formation around the wound. Recommendations were for silver alginate and dry sterile dressings to the foot ulcer. seen by wound care who agree and will follow her up as an outpatient. Day prior to discharge she received dialysis without issue and today she will be discharged home and resume her outpatient dialysis schedule Time Spent with Patient Time attestation: Total time managing care of this patient today ____ minutes. Discharge coordination time: Greater than 30 minutes Quality: Safe Use of Opioids Does Pt have an Active Cancer Diagnosis on the Problem List?: No Quality: Stroke Does the patient have a stroke diagnosis?: No Physical Exam Vital Signs: Vital Signs: Last Vital Signs Temp 97.5 F 09/21/22 11:35 Pulse 89 09/21/22 11:35 Resp 20 09/21/22 11:35 BP 156/72 H 09/21/22 11:35 Pulse Ox 99 09/21/22 11:35 O2 Del Method Room Air 09/21/22 11:35 O2 Flow Rate 2 09/18/22 19:16 Oxygen Flow Rate 2 09/15/22 14:58 BMI result Body Mass Index 33.4 Const: Other: awake alert no acute distress Chest: Other: tunnel catheter right upper chest Resp: Other: bilateral and expiratry crackles Cardio: Other: no S4; positive S1-S2; no S3 murmurs rubs or gallops GI: Other: soft nontender nondistended normoactive bowel sounds Extrem: Other: no edema bilaterally. Tender ventral right foot DS: Data Data Completed and Pending Completed studies during hospitalization [Text1]: Procedures Detachment at Right Foot, Partial 1st Ray, Open Approach (03/01/20) Detachment at Right Foot, Partial 2nd Ray, Open Approach (03/01/20) Detachment at Right Foot, Partial 3rd Ray, Open Approach (03/01/20) Detachment at Right Foot, Partial 4th Ray, Open Approach (03/01/20) Detachment at Right Foot, Partial 5th Ray, Open Approach (03/01/20) Drainage of Right Pleural Cavity, Percutaneous Approach (01/14/21) Excision of Stomach, Pylorus, Via Natural or Artificial Opening Endoscopic, Diagnostic (08/27/22) Fluoroscopy of Superior Vena Cava, Guidance (08/14/22) Insertion of Infusion Device into Right Atrium, Percutaneous Approach (08/14/22) Insertion of Infusion Device into Superior Vena Cava, Percutaneous Approach (01/14/21) Insertion of Tunneled Vascular Access Device into Chest Subcutaneous Tissue and Fascia, Percutaneous Approach (08/14/22) Performance of Urinary Filtration, Intermittent, Less than 6 Hours Per Day (08/27/22) Removal of Infusion Device from Great Vessel, External Approach (01/14/21) Transfusion of Nonautologous Red Blood Cells into Peripheral Vein, Percutaneous Approach (04/22/22) Labs on day of discharge: Laboratory Results - last 24 hr 09/20/22 09/20/22 09/21/22 16:27 20:24 07:53 POC Glucose 156 H 203 H 109 09/21/22 10:57 POC Glucose 184 H Discharge Plan Discharge Anticipated Discharge Date/Time: 09/21/22 11:00 Discharge Diagnosis: Hypertensive Emergency [place] [facility] [place]Provider Group] - 3 days Abdon Beard MD [Primary Care Provider] - 5 days Discharge Medications: New ondansetron 4 mg tablet,disintegrating 4 mg PO Q8H PRN (Reason: nausea and vomiting) 5 Days Qty: 12 0RF Continued hydralazine 25 mg tablet 75 mg PO TID sucralfate 1 gram Tablet 1 g PO BID Qty: 28 0RF metoclopramide HCl 5 mg Tablet 5 mg PO TIDAC PRN (Reason: (Drug) Ingestion) Qty: 90 0RF docusate sodium 100 mg capsule 100 mg PO DAILY PRN (Reason: constipation) oxycodone 5 mg tablet 5 mg PO Q6H PRN (Reason: severe pain) atorvastatin 40 mg Tablet 40 mg PO BEDTIME Qty: 90 0RF clopidogrel 75 mg Tablet 75 mg PO DAILY Qty: 90 0RF aspirin 81 mg Tablet,Delayed Release (Dr/Ec) 81 mg PO DAILY Qty: 90 0RF losartan 25 mg Tablet 25 mg PO DAILY Qty: 90 0RF Protocol: Hold for SBP< HOLD for SBP < : 90 omeprazole 40 mg Capsule,Delayed Release(Dr/Ec) 40 mg PO DAILY@0630 Qty: 90 0RF carvedilol 12.5 mg tablet 12.5 mg PO BID Qty: 120 0RF torsemide 20 mg tablet 40 mg PO BID Qty: 180 0RF nifedipine 60 mg tablet extended release 24hr 60 mg PO DAILY Qty: 90 0RF ferrous fumarate [Ferrocite] 324 mg (106 mg iron) tablet 324 mg PO DAILY Qty: 90 0RF glipizide 2.5 mg tablet extended release 24hr 2.5 mg PO DAILY Qty: 90 0RF Discharge Orders: Discharge Order (Routine); Ordered 09/21/22 Ordered By: Steve Shepherd Diet: Advance to usual diet Activity on Discharge: As tolerated Stand Alone Forms: Patient Portal Discharge page Activity Restrictions/Additional Instructions: Must have dialysis on Sunday, must go to wound care clinic for foot. wound care: Silver alginate to wound with dry dressing to cover change daily. Care Plan Goals: hemodialysis as scheduled resume home meds Health Concerns: follow-up with wound clinic as scheduled Plan of Treatment: follow-up with PCP as scheduled Assessment: see discharge summary Patient Instructions: Dialysis Diet (DC)
--- NOTE | 2022-09-21 12:19 | MHC.CM.PN ---
Second IMM 09/21. Pt is medically cleared for D/C back home with resumption of [employer], and continuation of HD. Pts sister Josy will transport her home.
== END 2022-09-21 13:39 | disposition home or self-care (01) | DRG 291 ==
LOC: HO.ED 23:59 → HO.EDOVER 09-16 00:28 → HO.IMC 09-16 00:59
PROVIDERS: Hospitalist; Internal Medicine Nephrology; Physician Assistant Medical; Admitting Provider Student in an Organized Health Care Education/Training Program; Emergency Provider Emergency Medicine; PCP Internal Medicine; Visit Provider Hospitalist
DX: I13.2 Hypertensive heart and chronic kidney disease with heart failure and with stage 5 chronic kidney disease, or end stage renal disease (principal); I50.23 Acute on chronic systolic (congestive) heart failure; N18.6 End stage renal disease; I16.1 Hypertensive emergency; J96.11 Chronic respiratory failure with hypoxia; L97.429 Non-pressure chronic ulcer of left heel and midfoot with unspecified severity; E11.22 Type 2 diabetes mellitus with diabetic chronic kidney disease; Z91.158 Patient's noncompliance with renal dialysis for other reason; Z20.822 Contact with and (suspected) exposure to COVID-19; I25.10 Atherosclerotic heart disease of native coronary artery without angina pectoris; E11.43 Type 2 diabetes mellitus with diabetic autonomic (poly)neuropathy; K31.84 Gastroparesis; E11.621 Type 2 diabetes mellitus with foot ulcer; H54.7 Unspecified visual loss; D63.1 Anemia in chronic kidney disease; Z91.148 Patient's other noncompliance with medication regimen for other reason; Z99.81 Dependence on supplemental oxygen; Z99.2 Dependence on renal dialysis; Z79.02 Long term (current) use of antithrombotics/antiplatelets; Z79.82 Long term (current) use of aspirin; Z79.84 Long term (current) use of oral hypoglycemic drugs; Z79.899 Other long term (current) drug therapy
CPT/HCPCS: 36415; 71045; 80048; 80053; 82947; 83735; 84484; 85018; 85025; 87502; 87635; 90999; 93005; 99285; J1170; J1200; J1643; J1940; J2405; J2550

== ENCOUNTER → 2022-09-15 16:25 | Outpatient (BNV) | payer OTHER, SELFPAY | PROVIDERS: Admitting Provider Student in an Organized Health Care Education/Training Program; Emergency Provider Emergency Medicine; PCP Internal Medicine; Visit Provider Internal Medicine Cardiovascular Disease | DX: R94.31 Abnormal electrocardiogram [ECG] [EKG] (principal) | CPT/HCPCS: 93010 ==

== ENCOUNTER → 2022-09-16 00:24 | Outpatient (BNV) | payer OTHER, SELFPAY | PROVIDERS: Admitting Provider Student in an Organized Health Care Education/Training Program; Emergency Provider Emergency Medicine; PCP Internal Medicine; Visit Provider Surgery | DX: E11.621 Type 2 diabetes mellitus with foot ulcer (principal); L97.529 Non-pressure chronic ulcer of other part of left foot with unspecified severity | CPT/HCPCS: 99222 ==

== ENCOUNTER → 2022-09-16 00:24 | Outpatient (BNV) | payer OTHER, SELFPAY | PROVIDERS: Admitting Provider Student in an Organized Health Care Education/Training Program; Emergency Provider Emergency Medicine; PCP Internal Medicine; Visit Provider Internal Medicine Cardiovascular Disease | DX: I50.20 Unspecified systolic (congestive) heart failure (principal); I10 Essential (primary) hypertension; Z91.198 Patient's noncompliance with other medical treatment and regimen for other reason | CPT/HCPCS: 99222 ==

== ENCOUNTER → 2022-09-16 00:24 | Outpatient (BNV) | payer OTHER, SELFPAY | PROVIDERS: Admitting Provider Student in an Organized Health Care Education/Training Program; Emergency Provider Emergency Medicine; PCP Internal Medicine; Visit Provider Student in an Organized Health Care Education/Training Program | DX: N18.6 End stage renal disease (principal); I12.0 Hypertensive chronic kidney disease with stage 5 chronic kidney disease or end stage renal disease; I50.20 Unspecified systolic (congestive) heart failure; D64.9 Anemia, unspecified | CPT/HCPCS: 99223; 99232; 99233; 99239; 99499 ==

== ENCOUNTER 2022-10-04 17:09 | Inpatient (IN) | payer OTHER, SELFPAY ==
[2022-10-04] VITALS (7 sets, daily range): BP systolic 160–203; BP diastolic 94–118; PULSE 89–105; RESP 12–24; TEMP 36.8; O2SAT 88–100; BMI 29.3
--- NOTE | 2022-10-04 | ECG_ITS ---
Test Reason : CP/SOB Blood Pressure : / mmHG Vent. Rate : 102 BPM Atrial Rate : 102 BPM P-R Int : 154 ms QRS Dur : 136 ms QT Int : 404 ms P-R-T Axes : 057 001 076 degrees QTc Int : 526 ms Sinus tachycardia Possible Left atrial enlargement Right bundle branch block Abnormal ECG When compared with ECG of 15-SEP-2022 17:38, T wave inversion no longer evident in Anterior leads Referred By: Generic ED Physician Electronically Signed By:Vinny Vera
--- NOTE | ~2022-10-04 | CT_ITS ---
EXAMINATION: CT ABDOMEN AND PELVIS WITHOUT CONTRAST CLINICAL INFORMATION: Abdominal pain. Nausea and vomiting. COMPARISON: 08/21/2022 TECHNIQUE: Multidetector volumetric imaging was performed from the superior aspect of the liver through the pubic symphysis. Sagittal and coronal reformatted images were obtained on the technologist's workstation. This CT examination was performed using dose optimization techniques as appropriate, variously including the following: *Automated exposure control *Adjustment of mA and/or kV according to patient size (this includes techniques or standardized protocols for targeted exams where dose is matched to indication/reason for exam; i.e. extremities or head) *Use of iterative reconstruction technique DLP: 547 mGy-cm FINDINGS: LUNG BASES: Small right-sided pleural effusion. The lung bases are otherwise clear. LIVER, GALLBLADDER, AND BILIARY TREE: The liver is normal in size, shape, and attenuation. No focal hepatic lesion or biliary ductal dilatation is present. Cholecystectomy. PANCREAS: Unremarkable. SPLEEN: Unremarkable. ADRENAL GLANDS: Unremarkable. KIDNEYS AND URETERS: The kidneys are normal in size, shape, and attenuation. No hydronephrosis or hydroureter. There are numerous bilateral calculi again seen. Greater than 10 calculi at each kidney. For instance there is a right midpole 0.3 cm calculus which is 9 cm from the posterior axillary line. 0.2 cm left midpole calculus is 9 cm from the posterior axillary line. BLADDER: Unremarkable. GASTROINTESTINAL TRACT: The stomach is unremarkable. Normal caliber small bowel. No obstruction. Normal appendix. No colonic wall thickening or inflammation. No free air or free fluid. ABDOMINAL WALL: No significant hernia is appreciated. Mild anasarca. LYMPH NODES: Mildly prominent retroperitoneal lymph nodes without pathologic enlargement. This is fairly similar to previous. VASCULAR: Unremarkable. PELVIC VISCERA: Anteverted uterus. Mild fullness in the right ovary without gross mass identified. OSSEOUS STRUCTURES: No acute or suspicious osseous abnormality. Degenerative change at L4-L5 with sclerosis of the L4 vertebral body noted. CT/CT abdomen pelvis wo IV con IMPRESSION: 1. No acute findings in the abdomen or pelvis. No inflammatory changes. 2. Numerous bilateral nonobstructing renal calculi. 3. Small right-sided pleural effusion. Fleischner guidelines were followed.
--- NOTE | ~2022-10-04 | XR_ITS ---
EXAMINATION: XR CHEST CLINICAL INFORMATION: Short of breath COMPARISON: 09/15/2022 TECHNIQUE: Frontal view of the chest was obtained. FINDINGS: Right chest wall central venous catheter terminates near the cavoatrial junction. Cardiac leads overlie the chest. The lungs are well expanded. There is no focal consolidation, edema, or effusion. No pneumothorax. The cardiomediastinal silhouette is within normal limits. No acute osseous abnormality. XR/XR chest 1V IMPRESSION: No acute pulmonary disease.
--- NOTE | 2022-10-04 17:26 | ED_ITS ---
HPI - Chest Pain General Chief Complaint: Chest Pain Stated Complaint: CHEST PAIN SOB Time Seen by Provider: 10/04/22 17:22 Source: patient Mode of arrival: EMS Limitations: no limitations History of Present Illness HPI narrative: Patient's hypertension on dialysis with history of heart failure been nauseated and vomiting for last 4 days with increased shortness of breath and cough at dialysis 3 days ago missed dialysis today comes here as unable to hold anything down now on arrival patient's blood pressure was 203/118 pulse rate 103 afebrile no significant abdominal pain patient barely makes small amount of urine patient saturating to 88% at room air Related Data Home Medications Medication Instructions Recorded Confirmed docusate sodium 100 mg capsule 100 mg PO DAILY PRN constipation 08/13/22 09/16/22 oxycodone 5 mg tablet 5 mg PO Q6H PRN severe pain 08/13/22 09/16/22 hydralazine 25 mg tablet 75 mg PO TID 08/25/22 09/16/22 Previous Rx's Medication Instructions Recorded aspirin 81 mg tablet,delayed 81 mg PO DAILY #90 tabs 08/20/22 release atorvastatin 40 mg tablet 40 mg PO BEDTIME #90 tabs 08/20/22 carvedilol 12.5 mg tablet 12.5 mg PO BID #120 tabs 08/20/22 clopidogrel 75 mg tablet 75 mg PO DAILY #90 tabs 08/20/22 ferrous fumarate 324 mg (106 mg 324 mg PO DAILY #90 tabs 08/20/22 iron) tablet (Ferrocite) glipizide 2.5 mg tablet, extended 2.5 mg PO DAILY #90 tabs 08/20/22 release 24 hr losartan 25 mg tablet 25 mg PO DAILY #90 tabs 08/20/22 nifedipine 60 mg tablet,extended 60 mg PO DAILY #90 tabs 08/20/22 release 24 hr omeprazole 40 mg capsule,delayed 40 mg PO DAILY@0630 #90 caps 08/20/22 release torsemide 20 mg tablet 40 mg PO BID #180 tabs 08/20/22 metoclopramide HCl 5 mg tablet 5 mg PO TIDAC PRN (Drug) Ingestion 08/28/22 #90 tabs sucralfate 1 gram tablet 1 g PO BID #28 tabs 08/28/22 ondansetron 4 mg disintegrating 4 mg PO Q8H PRN nausea and 09/15/22 tablet vomiting 5 days #12 tabs Allergies Allergy/AdvReac Type Severity Reaction Status Date / Time morphine [MORPHINE] Allergy Intermediate Itching Verified 09/10/22 19:39 azithromycin [From Zithromax] Allergy Hives Verified 09/10/22 19:39 gabapentin Allergy Facial Verified 09/10/22 19:39 Swelling tramadol Allergy Facial Verified 09/10/22 19:39 Swelling vancomycin Allergy Hives Verified 09/10/22 19:39 Review of Systems Review of Systems: Yes all other systems are reviewed and are negative [facility] Past Medical History Medical History Abnormal finding on echocardiogram Acute dyspnea Acute on chronic systolic and diastolic heart failure, NYHA class 3 Acute worsening of stage 3 chronic kidney disease MYNOR (acute kidney injury) Anemia Anemia in chronic kidney disease (CKD) Asthma Atypical chest pain Back pain Blind right eye Bone infection Cardiomyopathy Cellulitis Cellulitis and abscess of foot delivery delivered Chest pain CHF (congestive heart failure) (~06/07/22) CKD (chronic kidney disease) CKD (chronic kidney disease) CKD (chronic kidney disease) stage 4, GFR 15-29 ml/min Depression with anxiety Diabetes Diabetes Diabetic foot ulcer associated with type 2 diabetes mellitus Diabetic retinopathy DM foot ulcer Elevated troponin ESRD needing dialysis Essential hypertension Fever Generalized edema HFrEF (heart failure with reduced ejection fraction) HTN (hypertension) Hypertension (~06/10/22) Hypertension Hypertensive emergency Metabolic acidosis Migraine Osteomyelitis PAD (peripheral artery disease) Pleural effusion test positive test positive Renal failure Sepsis Severe anemia Tachycardia Type 2 diabetes mellitus with hyperglycemia, with long-term current use of insulin Surgical History History of transmetatarsal amputation of foot S/P transmetatarsal amputation of foot Family History Family History Mother Coronary artery disease Myocardial infarction Stroke Diabetes mellitus Father Myocardial infarction Social History Social History Household Members: Significant Other and Family Household Members Other:: Sister, [id number], nephew Housing: Apartment Do you presently have visiting nurse or other home services: No Alcohol intake: never Patient Tobacco Use Status: Never used Tobacco Smoked in Last 30 Days: No e-Cigarette/Vaping Use: Never Used Second Hand Smoke Exposure: No Use of substances other than those prescribed or required for medical reasons: No Advance Directives: Yes Advance Directives on File: Yes Advance Directives Date on File: 03/08/20 Patient : No service: No Current occupational status: unemployed and disabled Gender identity: Female Physical Exam Vital Signs: Vital Signs: Last Vital Signs Temp 98.2 F 10/04/22 17:16 Pulse 90 10/04/22 22:55 Resp 15 10/04/22 22:55 BP 160/94 H 10/04/22 22:55 Pulse Ox 99 10/04/22 22:55 O2 Del Method Room Air 10/04/22 22:55 O2 Flow Rate 2 10/04/22 22:55 BMI result Body Mass Index 29.3 Appearance: Alert. Oriented X3. No acute distress. Eyes: Legally blind with opacified right cornea ENT: Pharynx normal. Oral Mucosa moist Neck: Normal inspection. Neck supple. CVS: Normal heart rate and rhythm. Pulses normal. Respiratory: mild respiratory distress. Equal air entry bilateral, few rales at the bases, Port-A-Cath in place on the right side Abdomen: Soft mild epigastric tenderness no rebound tenderness without Bowel sounds are present, no mass palpable, no CVA tenderness Skin: Skin warm and dry. Normal skin color. Normal skin turgor. Extremities: 1+ lower extremity edema. No calf tenderness Neuro: Oriented X 3. No motor deficit. No sensory deficit.No cerebellar signs , cranial nerves II-XII intact Medications Administered Discontinued Medications Generic Name Dose Route Start Last Admin Trade Name Brandon PRN Reason Stop Dose Admin Furosemide 100 mg 10/04/22 20:18 10/04/22 20:33 Furosemide 100 Mg/10 Ml Vial IVPUSH 10/04/22 20:19 100 mg ONCE ONE Administration Protocol Hydralazine HCl 10 mg 10/04/22 21:41 10/04/22 21:55 Hydralazine Hcl 20 Mg/Ml Vial IVPUSH 10/04/22 21:42 10 mg ONCE ONE Administration Protocol Hydromorphone HCl 1 mg 10/04/22 20:49 10/04/22 21:07 Hydromorphone Hcl 1 Mg/Ml Syringe IVPUSH 10/04/22 20:50 1 mg ONCE ONE Administration Protocol Calcium Gluconate 2 gm in 100 mls @ 50 mls/hr 10/04/22 20:26 10/04/22 22:34 Calcium Gluconate IV 10/04/22 22:25 Infused ONCE ONE Infusion Labetalol HCl 20 mg 10/04/22 17:31 10/04/22 17:37 Labetalol Hcl 100 Mg/20 Ml Vial IVPUSH 10/04/22 17:32 20 mg ONCE ONE Administration Nitroglycerin 1 inch 10/04/22 17:31 10/04/22 17:37 Nitroglycerin 2 % Oint 1 Gm Packet TRANSDERMA 10/04/22 17:32 1 inch ONCE ONE Administration Ondansetron HCl 4 mg 10/04/22 17:29 10/04/22 17:37 Ondansetron Hcl 4 Mg/2 Ml Vial IVPUSH 10/04/22 17:30 4 mg ONCE ONE Administration Sodium Bicarbonate 50 meq 10/04/22 20:27 10/04/22 20:34 Sodium Bicarbonate 8.4% 50 Meq/50 Ml Syringe IVPUSH 10/04/22 20:28 50 meq ONCE ONE Administration Sodium Zirconium Cyclosilicate 10 gm 10/04/22 20:21 10/04/22 20:45 Sodium Zirconium Cyclosilicate 10 Gm Powd.Pack PO 10/04/22 20:22 Not Given ONCE ONE Medical Decision Making Medical Decision Making MDM Narrative: Patient with history of end-stage renal disease on dialysis which she missed workup showed fluid with potassium 5.9 received IV calcium gluconate patient, bicarb patient refused Lokelma. Will admit patient for dialysis in a.m. Differential Diagnosis Differential Diagnoses: The differential diagnosis associated with the pre sentation includes CHF/metabolic encephalopathy/metabolic acidosis/pleural effusion/ACS Consult Healthcare Provider Management of the patient was discussed with: Hospitalist Lab Data 10/04/22 17:36 10/04/22 17:36 Labs: Lab Results 10/04/22 10/04/22 10/04/22 Range/Units 17:36 17:36 17:36 WBC 5.4 (4.8-10.8) X10*3/uL RBC 2.90 L (4.20-5.50) X10*6/uL Hgb 8.0 L (12.0-16.0) g/dl Hct 26.1 L (37.0-47.0) % MCV 90.0 (80.0-98.0) fL MCH 27.6 (27.0-33.0) pg MCHC 30.7 L (31.0-35.0) g/dl RDW 19.8 H (11.0-16.0) % Plt Count 138 L D (160-400) X10*3/uL MPV 12.1 (9.4-12.3) fL Immature Gran % (Auto) 0.2 (0.0-0.4) % Neut % (Auto) 83.8 H (45-73) % Lymph % (Auto) 8.9 L (20-40) % [place] % (Auto) 5.0 (2-11) % Eos % (Auto) 1.5 (0-4) % Baso % (Auto) 0.6 (0-2) % Lymph # (Auto) 0.5 L (1.2-4.9) X10*3/uL [place] # (Auto) 0.3 (0.1-1.2) X10*3/uL Eos # (Auto) 0.1 (0.0-0.4) X10*3/uL Baso # (Auto) 0.0 (0.0-0.2) X10*3/uL Abs Immat Gran (auto) 0.01 (0.00-0.03) X10*3/uL Absolute Neuts (auto) 4.5 (2.0-8.3) x10*3/uL Absolute Nucleated RBC 0.000 (0.0-0.012) X10*3/uL Nucleated RBC % (auto) 0.0 (0.0-0.2) /100WBC Sodium 139 (135-145) mmol/L Potassium 5.9 H D (3.3-5.1) mmol/L Chloride 108 (96-108) mmol/L Carbon Dioxide 21 L (22-29) mmol/L Anion Gap 16 (12-20) BUN 39 H (9-16) mg/dL Creatinine 4.17 H* (0.5-1.4) mg/dL Estim Creat Clear Calc 20.5 Estimated GFR 12 Random Glucose 116 H (60-115) mg/dL Lactic Acid (0.5-2.0) mmol/L Calcium 9.4 D (8.4-10.2) mg/dL Total Bilirubin 2.1 H (0.0-1.0) mg/dL AST 25 (5-31) U/L ALT 14 (0-31) U/L Alkaline Phosphatase 109 (39-117) U/L Troponin I High Sens (<3.5-17.0) ng/L B-Natriuretic Peptide (<100) pg/mL Total Protein 7.9 (6.5-8.0) g/dL Albumin 3.9 (3.5-5.0) g/dL COVID-19 (CARO) Negative (Negative) COVID-19 Clin Com See Note 10/04/22 10/04/22 10/04/22 Range/Units 17:36 21:51 21:51 WBC (4.8-10.8) X10*3/uL RBC (4.20-5.50) X10*6/uL Hgb (12.0-16.0) g/dl Hct (37.0-47.0) % MCV (80.0-98.0) fL MCH (27.0-33.0) pg MCHC (31.0-35.0) g/dl RDW (11.0-16.0) % Plt Count (160-400) X10*3/uL MPV (9.4-12.3) fL Immature Gran % (Auto) (0.0-0.4) % Neut % (Auto) (45-73) % Lymph % (Auto) (20-40) % [place] % (Auto) (2-11) % Eos % (Auto) (0-4) % Baso % (Auto) (0-2) % Lymph # (Auto) (1.2-4.9) X10*3/uL [place] # (Auto) (0.1-1.2) X10*3/uL Eos # (Auto) (0.0-0.4) X10*3/uL Baso # (Auto) (0.0-0.2) X10*3/uL Abs Immat Gran (auto) (0.00-0.03) X10*3/uL Absolute Neuts (auto) (2.0-8.3) x10*3/uL Absolute Nucleated RBC (0.0-0.012) X10*3/uL Nucleated RBC % (auto) (0.0-0.2) /100WBC Sodium (135-145) mmol/L Potassium (3.3-5.1) mmol/L Chloride (96-108) mmol/L Carbon Dioxide (22-29) mmol/L Anion Gap (12-20) BUN (9-16) mg/dL Creatinine (0.5-1.4) mg/dL Estim Creat Clear Calc Estimated GFR Random Glucose (60-115) mg/dL Lactic Acid 1.3 (0.5-2.0) mmol/L Calcium (8.4-10.2) mg/dL Total Bilirubin (0.0-1.0) mg/dL AST (5-31) U/L ALT (0-31) U/L Alkaline Phosphatase (39-117) U/L Troponin I High Sens 25.8 H (<3.5-17.0) ng/L B-Natriuretic Peptide 4346 H (<100) pg/mL Total Protein (6.5-8.0) g/dL Albumin (3.5-5.0) g/dL COVID-19 (CARO) (Negative) COVID-19 Clin Com Independent Interpretation I performed an independent interpretation of an: EKG Interpretation: Sinus tachycardia with heart rate of 102 beats per minute right bundle-branch block no acute ST changes no acute ischemia Critical Care Time Critical Care Time Critical Care Time: Yes Total Critical Care Time: 90 Attestation: The patient was critically ill with a high probability of imminent or life threatening deterioration. I spent greater than 100 minutes of discontinuous time evaluating the patient,delivering critical care at the bedside, discussing and evaluating pertinent data with consultants. Critical care time does not include time spent performing separately billable procedures or teaching. Total time spent performing critical care was 90 minutes. Discharge Plan Discharge Clinical Impression: Vomiting, Acute on chronic systolic and diastolic heart failure, NYHA class 3, End stage chronic kidney disease Patient Disposition: Admitted As Inpatient
[2022-10-04] MEDS: Labetalol HCL 100 MG/20 ML VIAL 20 MG IVPUSH (17:37)
[2022-10-04] MEDS: ondansetron HCL 4 MG/2 ML VIAL IVPUSH (17:37)
[2022-10-04] MEDS: Nitroglycerin 2 % Oint 1 GM Packet 1 INCH TRANSDERMA (17:37)
[2022-10-04 17:46] LABS: MANUAL DIFF FLAG NO
[2022-10-04 17:48] LABS: Basophils Percent Auto 0.6 % (0-2); Eosinophils Absolute Auto 0.1 X10*3/uL (0.0-0.4); Eosinophils Percent Auto 1.5 % (0-4); Hematocrit 26.1 % (37.0-47.0); Imm Gran Abs Auto 0.01 X10*3/uL (0.00-0.03); Imm Gran Pct Auto 0.2 % (0.0-0.4); Lymphocytes Absolute Auto 0.5 X10*3/uL (1.2-4.9); Lymphocytes Percent Auto 8.9 % (20-40); Mean Corpuscular HGB Conc 30.7 g/dl (31.0-35.0); Mean Corpuscular Hemoglobin 27.6 pg (27.0-33.0); Mean Platelet Volume 12.1 fL (9.4-12.3); Monocytes Absolute Auto 0.3 X10*3/uL (0.1-1.2); Neutrophils Absolute Auto 4.5 x10*3/uL (2.0-8.3); Neutrophils Percent Auto 83.8 % (45-73); Platelet Count 138 X10*3/uL (160-400); Red Cell Distribution Width 19.8 % (11.0-16.0); White Blood Count 5.4 X10*3/uL (4.8-10.8)
[2022-10-04 18:04] LABS: Lactic Acid 1.3 mmol/L (0.5-2.0)
[2022-10-04 18:10] LABS: Alanine Aminotransferase 14 U/L (0-31); Albumin Level 3.9 g/dL (3.5-5.0); Alkaline Phosphatase 109 U/L (39-117); Anion Gap 16 (12-20); Aspartate Amino Transferase 25 U/L (5-31); Bilirubin Total 2.1 mg/dL (0.0-1.0); Blood Urea Nitrogen 39 mg/dL (9-16); Calcium 9.4 mg/dL (8.4-10.2); Carbon Dioxide 21 mmol/L (22-29); Chloride 108 mmol/L (96-108); Creatinine Clr Calc Pharmacy 20.5; Estimated Glomerular Filt Rate 12; Glucose Random 116 mg/dL (60-115); Potassium 5.9 mmol/L (3.3-5.1); Sodium 139 mmol/L (135-145); Total Protein 7.9 g/dL (6.5-8.0)
[2022-10-04 18:33] LABS: COVID-19 Test Negative (Negative); IDNOW Serial# 08D9AD1C
--- NOTE | 2022-10-04 20:27 | PC.NURSE ---
Pts sister, Josy, called for an update. Pt aware.
[2022-10-04] MEDS: Furosemide 100 MG/10 ML VIAL IVPUSH (20:33)
[2022-10-04] MEDS: Sodium Bicarbonate 8.4% 50 MEQ/50 ML SYRINGE IVPUSH (20:34)
[2022-10-04] MEDS: Calcium Gluconate/NaCl,Iso-Osm 2 GM/100 ML PLAST..BAG IV (20:34)
--- NOTE | 2022-10-04 20:52 | PC.NURSE ---
Pt aox4 reporting all over the body pain, 12/05. Medicated as ordered. Tolerated well. Declined to take Lokelma as pt states it taste nasty . made aware.
[2022-10-04] MEDS: HYDROmorphone HCl 1 MG/ML SYRINGE IVPUSH (21:07)
[2022-10-04] MEDS: hydrALAZINE HCl 20 MG/ML VIAL 10 MG IVPUSH (21:55)
[2022-10-04 22:16] LABS: B Type Natriuretic Peptide 4346 pg/mL (<100); Troponin-I High Sensitivity 25.8 ng/L (<3.5-17.0)
--- NOTE | 2022-10-04 22:29 | PC.NURSE ---
O2 noted at 88% on RA. Pt placed on 2L nc with o2 improvement to 97%. aware.
[2022-10-05] VITALS (8 sets, daily range): BP systolic 166–195; BP diastolic 76–116; PULSE 90–98; RESP 12–20; TEMP 36–36.4; O2SAT 93–100
[2022-10-05 00:40] LABS: Lipase 19 U/L (8-78)
--- NOTE | 2022-10-05 01:24 | PC.NURSE ---
Med req completed
--- NOTE | 2022-10-05 01:37 | PC.NURSE ---
Pt aox4 reporting generalized body pain, 12/05. Declining po pain meds as they increase nausea. Also declines Zofran. Refusing heparin as ordered at this time. [place] text sent to Dr. Lopez. New orders pending for IV pain med. Pt aware.
[2022-10-05] MEDS: HYDROmorphone HCl 0.5 MG/0.5 ML SYRINGE IVPUSH ×6 (01:44→22:28)
--- NOTE | 2022-10-05 01:53 | PC.NURSE ---
[place] text sent to Dr. Lopez regarding pts increased BP. New order to administer dilaudid and recheck BP in one hour. Pt aware of plan of care.
[2022-10-05 03:41] LABS: Appearance Urine Clear; Color Urine Yellow; Glucose Urine UA 100 mg/dL (Negative); Leukocyte Esterase Urine Negative (Negative); Nitrite Urine Negative (Negative); UMIC TRIGGER UACC YES; Urine Blood Trace (Negative); Urine Ketones Negative (Negative); Urine Protein >=1000 (4+) mg/dL (Neg-Trace)
[2022-10-05 03:43] LABS: Bacteria Urine 4+ (None Seen); Hyaline Casts Urine 0-2 /LPF (0-2); Squamous Epithelial Cell Urine 0-2 /HPF (0-2); WBC Urine 0-5 /HPF (0-5)
--- NOTE | 2022-10-05 05:25 | PC.NURSE ---
Nursing report provided to nurse Jeter. Pt assigned a bed to room 461 and aware of plan of care.
--- NOTE | 2022-10-05 06:32 | PM.IMHP ---
History of Present Illness Date of Service: 10/04/22 Chief Complaint: n/v/abd pain, SOB 32-year-old female past medical history of HTN, CHFrEF, ESRD on dialysis Sunday, DM, diabetic retinopathy, peripheral vascular disease, diabetic gastroparesis, chronic hypoxemic respiratory failure on baseline oxygen p.r.n. comes into the hospital with complaints of nausea vomiting abdominal pain for the past 3 days. Patient reports that she has epigastric abdominal pain, nonradiating, intermittent, 10/05, associated with significant nausea vomiting. As a result she missed her dialysis on Sunday and now has significant shortness of breath with minimal exertion, orthopnea PND. patient reports chest pain worse with deep inspiration, as well as coughing, pain is localized under the left breast, nonradiating. not related to exertion or rest. patient denies any fever chills, no urinary symptoms no numbness tingling or weakness. On arrival to the ED patient hemodynamically stable with slightly elevated blood pressure and oxygen of 88 on room air Labs are significant for WBC count of 5.4, hemoglobin of 8 chronically around the same level, potassium 5.9 patient refuse Lokelma, creatinine of 4.17, BNP of 4346, troponin of 25 decreased to 24, UA negative for acute infection Abdominal pelvic CT negative for acute abnormality, chest x-ray shows no acute pulmonary disease patient given Lasix and will be admitted for further management Review of Systems Review of Systems: Yes all other systems are reviewed and are negative [facility] Medical History Abnormal finding on echocardiogram Acute dyspnea Acute on chronic systolic and diastolic heart failure, NYHA class 3 Acute worsening of stage 3 chronic kidney disease MYNOR (acute kidney injury) Anemia Anemia in chronic kidney disease (CKD) Asthma Atypical chest pain Back pain Blind right eye Bone infection Cardiomyopathy Cellulitis Cellulitis and abscess of foot delivery delivered Chest pain CHF (congestive heart failure) (~06/07/22) CKD (chronic kidney disease) CKD (chronic kidney disease) CKD (chronic kidney disease) stage 4, GFR 15-29 ml/min Depression with anxiety Diabetes Diabetes Diabetic foot ulcer associated with type 2 diabetes mellitus Diabetic retinopathy DM foot ulcer Elevated troponin ESRD needing dialysis Essential hypertension Fever Generalized edema HFrEF (heart failure with reduced ejection fraction) HTN (hypertension) Hypertension (~06/10/22) Hypertension Hypertensive emergency Metabolic acidosis Migraine Osteomyelitis PAD (peripheral artery disease) Pleural effusion test positive test positive Renal failure Sepsis Severe anemia Tachycardia Type 2 diabetes mellitus with hyperglycemia, with long-term current use of insulin Family History Mother Coronary artery disease Myocardial infarction Stroke Diabetes mellitus Father Myocardial infarction Surgical History History of transmetatarsal amputation of foot S/P transmetatarsal amputation of foot Social History Household Members: Significant Other and Family Household Members Other:: Sister, [id number], nephew Housing: Apartment Do you presently have visiting nurse or other home services: Yes (sister is REHABILITATION CASE COORDINATOR) Alcohol intake: never Patient Tobacco Use Status: Never used Tobacco Smoked in Last 30 Days: No e-Cigarette/Vaping Use: Never Used Second Hand Smoke Exposure: No Use of substances other than those prescribed or required for medical reasons: No Have you been hit, kicked, punched, or otherwise hurt by someone within the past year? If so, by whom?: No Do you feel safe in your current relationship?: Yes Is there a partner from a previous relationship who is making you feel unsafe now?: No Are you made to feel afraid or neglected: No [facility] Healthcare Practices: n/a Advance Directives: Yes Advance Directives on File: Yes Advance Directives Date on File: 03/08/20 Do you have thoughts of harming others: None Do you have a plan to hurt others: No Plan Recently lost weight without trying: No How much weight loss: Unsure Eating poorly because of decreased appetite: No Nutrition screen score: 2 Nutrition Risks: No Nutritional Risk Patient : No : No Poor oral hygiene: No service: No Current occupational status: unemployed and disabled Gender identity: Female Meds Allergies Allergy/AdvReac Type Severity Reaction Status Date / Time morphine [MORPHINE] Allergy Intermediate Itching Verified 09/10/22 19:39 azithromycin [From Zithromax] Allergy Hives Verified 09/10/22 19:39 gabapentin Allergy Facial Verified 09/10/22 19:39 Swelling tramadol Allergy Facial Verified 09/10/22 19:39 Swelling vancomycin Allergy Hives Verified 09/10/22 19:39 Active Medications: Current Medications Acetaminophen (Acetaminophen 325 Mg Tablet) 650 mg PO Q6H PRN PRN Reason: Pain, Mild (Pain Scale 1-3) Furosemide (Furosemide 40 Mg/4 Ml Vial) 40 mg IVPUSH DAILY [facility]; Protocol Heparin Sodium (Porcine) (Heparin Sodium,Porcine 5,000 Unit/Ml Vial) 5,000 unit SUBCUT Q12H [facility] Last Admin: 10/05/22 01:33 Dose: Not Given Hydromorphone HCl (Hydromorphone Hcl 0.5 Mg/0.5 Ml Syringe) 0.5 mg IVPUSH Q4H PRN; Protocol PRN Reason: Pain, Severe (Pain Scale 7-10) Last Admin: 10/05/22 05:49 Dose: 0.5 mg Ondansetron HCl (Ondansetron Hcl 4 Mg/2 Ml Vial) 4 mg IVPUSH Q8H PRN PRN Reason: Nausea and Vomiting Sodium Chloride (0.9 % Sodium Chloride Flush 3 Ml Syringe) 3 ml IVFLUSH QSHIFT [facility] Home Medications Medication Instructions Recorded Confirmed Last Taken Type docusate sodium 100 mg capsule 100 mg PO DAILY PRN constipation 08/13/22 10/05/22 Unknown History oxycodone 5 mg tablet 5 mg PO Q6H PRN severe pain 08/13/22 10/05/22 Unknown History hydralazine 25 mg tablet 75 mg PO TID 08/25/22 10/05/22 08/24/22 History Physical Exam Vital Signs and Narrative: Vital Signs: Last Vital Signs Temp 97.3 F 10/05/22 05:48 Pulse 98 10/05/22 05:48 Resp 20 10/05/22 05:48 BP 192/101 H 10/05/22 05:48 Pulse Ox 93 10/05/22 05:48 O2 Del Method Nasal Cannula 10/05/22 05:48 O2 Flow Rate 2 10/05/22 03:16 BMI result Body Mass Index 29.3 Const: General: cooperative and no acute distress Orientation/consciousness: patient oriented x3 Eyes: Other: blood in the right eye Pupils: Equal, round and reactive pupils present Resp: Other: bilateral crackles Effort & Inspection: normal respiratory effort Cardio: Rate: regular rate Rhythm: regular rhythm GI: Other: abdominal tenderness, worse in the gaps gastric region, no rebound or guarding Palpation (GI): Soft to palpation Auscultation: normal bowel sounds Skin: General skin exam: no rashes or lesions noted Neuro: General: patient oriented x3 Cranial nerves: Yes Equal, round and reactive pupils present Cognition (Neuro): normal cognition Extrem: General: Yes normal to inspection and Yes no pedal edema Results Labs 10/04/22 17:36 10/04/22 17:36 Labs: Laboratory Results - last 24 hr 10/04/22 10/04/22 10/04/22 17:36 17:36 17:36 MCV 90.0 MCH 27.6 MCHC 30.7 L RDW 19.8 H Plt Count 138 L D MPV 12.1 Immature Gran % (Auto) 0.2 Neut % (Auto) 83.8 H Lymph % (Auto) 8.9 L Dale % (Auto) 5.0 Eos % (Auto) 1.5 Baso % (Auto) 0.6 Lymph # (Auto) 0.5 L Dale # (Auto) 0.3 Eos # (Auto) 0.1 Baso # (Auto) 0.0 Abs Immat Gran (auto) 0.01 Absolute Neuts (auto) 4.5 Absolute Nucleated RBC 0.000 Nucleated RBC % (auto) 0.0 Anion Gap 16 Estim Creat Clear Calc 20.5 Estimated GFR 12 Random Glucose 116 H Lactic Acid Calcium 9.4 D Total Bilirubin 2.1 H AST 25 ALT 14 Alkaline Phosphatase 109 B-Natriuretic Peptide Total Protein 7.9 Albumin 3.9 Lipase Urine Color Urine Appearance Urine pH Ur Specific [address] Urine Protein Urine Glucose (UA) Urine Ketones Urine Blood Urine Nitrite Ur Leukocyte Esterase Urine RBC Urine WBC Ur Squamous Epith Cells Urine Bacteria Hyaline Casts COVID-19 (CARO) Negative COVID-19 Clin Com See Note 10/04/22 10/04/22 10/04/22 17:36 21:51 21:51 MCV MCH MCHC RDW Plt Count MPV Immature Gran % (Auto) Neut % (Auto) Lymph % (Auto) Dale % (Auto) Eos % (Auto) Baso % (Auto) Lymph # (Auto) Dale # (Auto) Eos # (Auto) Baso # (Auto) Abs Immat Gran (auto) Absolute Neuts (auto) Absolute Nucleated RBC Nucleated RBC % (auto) Anion Gap Estim Creat Clear Calc Estimated GFR Random Glucose Lactic Acid 1.3 Calcium Total Bilirubin AST ALT Alkaline Phosphatase B-Natriuretic Peptide 4346 H Total Protein Albumin Lipase 19 Urine Color Urine Appearance Urine pH Ur Specific [address] Urine Protein Urine Glucose (UA) Urine Ketones Urine Blood Urine Nitrite Ur Leukocyte Esterase Urine RBC Urine WBC Ur Squamous Epith Cells Urine Bacteria Hyaline Casts COVID-19 (CARO) COVID-19 Clin Com 10/05/22 03:32 MCV MCH MCHC RDW Plt Count MPV Immature Gran % (Auto) Neut % (Auto) Lymph % (Auto) Dale % (Auto) Eos % (Auto) Baso % (Auto) Lymph # (Auto) Dale # (Auto) Eos # (Auto) Baso # (Auto) Abs Immat Gran (auto) Absolute Neuts (auto) Absolute Nucleated RBC Nucleated RBC % (auto) Anion Gap Estim Creat Clear Calc Estimated GFR Random Glucose Lactic Acid Calcium Total Bilirubin AST ALT Alkaline Phosphatase B-Natriuretic Peptide Total Protein Albumin Lipase Urine Color Yellow Urine Appearance Clear Urine pH 7.[address] 1.010 Urine Protein >=1000 (4+) H Urine Glucose (UA) 100 H Urine Ketones Negative Urine Blood Trace H Urine Nitrite Negative Ur Leukocyte Esterase Negative Urine RBC 11-20 H Urine WBC 0-5 Ur Squamous Epith Cells 0-2 Urine Bacteria 4+ Hyaline Casts 0-2 COVID-19 (CARO) COVID-19 Clin Com Imaging Radiologist's Impressions: Impressions Chest X-Ray 10/04/22 17:43 IMPRESSION: No acute pulmonary disease. Abdomen/Pelvis CT 10/05/22 00:08 IMPRESSION: 1. No acute findings in the abdomen or pelvis. No inflammatory changes. 2. Numerous bilateral nonobstructing renal calculi. 3. Small right-sided pleural effusion. Fleischner guidelines were followed. Assessment and Plan (1) Acute on chronic systolic and diastolic heart failure, NYHA class 3: Status: Acute (2) Gastroparesis: Status: Acute Plan 32-year-old female with extensive past medical history including CAD, ESRD on dialysis, CHF with reduced ejection fraction comes into the hospital with complaints of nausea vomiting abdominal pain as well as shortness of breath after missing dialysis # acute CHF exacerbation - secondary to missed dialysis - will consult Nephrology for dialysis session - given Lasix IV - monitor I&O, daily weight,as well as low-sodium diet # acute hypoxic respiratory failure - secondary to volume overload in the setting of missed dialysis in CHF - treatment of CHF as above - oxygen supplement as required # hyperkalemia - secondary to ESRD, missed dialysis - plan for dialysis in a.m. - follow BMP # acute diabetic gastroparesis - has nausea vomiting, epigastric pain - normal lipase, abdominal CT negative - p.r.n. antiemetics # missed dialysis - nephrology consulted # hypertension - elevated - will resume home antihypertensives - p.r.n. dose of hydralazine as needed # history of CAD /chest pain - chest pain atypical, likely pleuritic from coughing and fluid - troponin baseline, no EKG changes suggestive of ACS - continue aspirin, carvedilol, Plavix # history of GERD - continue PPI, DVT prophylaxis: Heparin subQ Given need for close management of above issues including no volume overload requiring dialysis and IV Lasix, hypoxia, hyperkalemia, patient will require minimum 2 nights inpatient hospital stay for further management and mo Time Spent With Patient Time: Total time managing care of this patient today ____ minutes. Quality Stroke Does the patient have a stroke diagnosis?: No VTE Prior VTE?: No VTE Risk Level:: Medical - moderate - high VTE Device Contraindication: Treatment Not Indicated VTE Drug Contraindication: N/A - Med Ordered
[2022-10-05 07:45] LABS: Glucose, Whole Blood 136 mg/dL (60-115)
--- NOTE | 2022-10-05 07:45 | PHA.MEDREC ---
Pharmacy Consult ? Medication Reconciliation Pharmacy has completed the medication reconciliation. Reviewed med rec done by nursing (Freida).
[2022-10-05] MEDS: Furosemide 40 MG/4 ML VIAL IVPUSH (07:53)
[2022-10-05] MEDS: hydrALAZINE HCl 20 MG/ML VIAL 5 MG IVPUSH (07:53)
--- NOTE | 2022-10-05 08:52 | MHC.CM.PN ---
Addendum entered by Vane Houston 10/05/22 14:43: Per Marylou at [facility], pts services are as follows: [employer]- 34 day hrs/14 night hrs/wk- [employer], and home O2 concentrator from [employer]. Original Note: IMM 10/05. Pt admitted with fluid overload. Pt lives at home with her sister/FOOD HAND[employer]ER Josy [phone], goes to HD 3x/week, and uses a walker and wheelchair. D/C plan to return home with resumption of [employer] services. Pts sister Josy to transport home. HCP/brother Michael on file. PCP: Abdon Santana vax: x [phone] jovania
[2022-10-05] MEDS: 0.9 % Sodium Chloride Flush 3 ML SYRINGE IVFLUSH ×2 (09:48→14:54)
[2022-10-05] MEDS: diphenhydrAMINE HCL 50 MG/ML VIAL 25 MG IVPUSH ×2 (09:48→22:11)
--- NOTE | 2022-10-05 09:56 | PM.EVENT ---
Event Note Date of Service: 10/05/22 Event Note: Seen and evaluated this morning reporting nausea and vomiting no chest pain or dyspnea BP elevated but better than before plan for dialysis today Time Spent With Patient Time: Total time managing care of this patient today ____ minutes.
--- NOTE | 2022-10-05 10:53 | P.CONNP_ITS ---
History of Present Illness Reason for Consult Consult date: 10/05/22 Reason for consult: ESRD Chief Complaint Chief complaint: Volume Overload History of Present Illness Narrative: 32-year-old female HTN, CHFrEF,? ESRD on dialysis Sunday,? DM, diabetic retinopathy, peripheral vascular disease, diabetic gastroparesis, chronic hypoxemic respiratory failure on baseline oxygen p.r.n. comes into the hospital with complaints of nausea vomiting abdominal pain for the past 3 days.? Patient reports that she has epigastric abdominal pain, nonradiating, intermittent, 10/05, associated with significant nausea vomiting.? As a result she missed her dialysis on Sunday and now has significant shortness of breath with minimal exertion, orthopnea PND.? patient reports chest pain worse with deep inspiration, as well as coughing, pain is localized under the left breast, nonradiating.? not related to exertion or rest. She has been noncompliant with dialysis. Last dialysis was last Sunday. Review of Systems Review of Systems Yes all other systems are reviewed and are negative PMFSH Past Medical History Medical History Abnormal finding on echocardiogram Acute dyspnea Acute on chronic systolic and diastolic heart failure, NYHA class 3 Acute worsening of stage 3 chronic kidney disease MYNOR (acute kidney injury) Anemia Anemia in chronic kidney disease (CKD) Asthma Atypical chest pain Back pain Blind right eye Bone infection Cardiomyopathy Cellulitis Cellulitis and abscess of foot delivery delivered Chest pain CHF (congestive heart failure) (~06/07/22) CKD (chronic kidney disease) CKD (chronic kidney disease) CKD (chronic kidney disease) stage 4, GFR 15-29 ml/min Depression with anxiety Diabetes Diabetes Diabetic foot ulcer associated with type 2 diabetes mellitus Diabetic retinopathy DM foot ulcer Elevated troponin ESRD needing dialysis Essential hypertension Fever Generalized edema HFrEF (heart failure with reduced ejection fraction) HTN (hypertension) Hypertension (~06/10/22) Hypertension Hypertensive emergency Metabolic acidosis Migraine Osteomyelitis PAD (peripheral artery disease) Pleural effusion test positive test positive Renal failure Sepsis Severe anemia Tachycardia Type 2 diabetes mellitus with hyperglycemia, with long-term current use of insulin Family History Family History Mother Coronary artery disease Myocardial infarction Stroke Diabetes mellitus Father Myocardial infarction Surgical History Surgical History 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 If so, by whom?: No Do you feel safe in your current relationship?: Yes Is there a partner from a previous relationship who is making you feel unsafe now?: No Are you made to feel afraid or neglected: No [facility] Practices: n/a Advance Directives: Yes Advance Directives on File: Yes Advance Directives Date on File: 03/08/20 Do you have thoughts of harming others: None Do you have a plan to hurt others: No Plan Recently lost weight without trying: No How much weight loss: Unsure Eating poorly because of decreased appetite: No Nutrition screen score: 2 Nutrition Risks: No Nutritional Risk Patient : No : No Poor oral hygiene: No service: No Current occupational status: unemployed and disabled Gender identity: Female Meds Allergies Allergy/AdvReac Type Severity Reaction Status Date / Time morphine [MORPHINE] Allergy Intermediate Itching Verified 09/10/22 19:39 azithromycin [From Zithromax] Allergy Hives Verified 09/10/22 19:39 gabapentin Allergy Facial Verified 09/10/22 19:39 Swelling tramadol Allergy Facial Verified 09/10/22 19:39 Swelling vancomycin Allergy Hives Verified 09/10/22 19:39 Active Medications: Current Medications Acetaminophen (Acetaminophen 325 Mg Tablet) 650 mg PO Q6H PRN PRN Reason: Pain, Mild (Pain Scale 1-3) Aspirin (Aspirin Enteric Coated 81 Mg Tablet.) 81 mg PO DAILY [facility] Last Admin: 10/05/22 08:33 Dose: Not Given Atorvastatin Calcium (Atorvastatin Calcium 40 Mg Tablet) 40 mg PO BEDTIME [facility] Carvedilol (Carvedilol 12.5 Mg Tablet) 12.5 mg PO BID [facility]; Protocol Last Admin: 10/05/22 09:14 Dose: Not Given Clopidogrel Bisulfate (Clopidogrel Bisulfate 75 Mg Tablet) 75 mg PO DAILY [facility] Last Admin: 10/05/22 09:15 Dose: Not Given Dextrose (Dextrose 50 % 25 Gm/50 Ml Syringe) 25 gm IVPUSH Q15M PRN; Protocol PRN Reason: per Hypoglycemia Standing Ord. Diphenhydramine HCl (Diphenhydramine Hcl 50 Mg/Ml Vial) 25 mg IVPUSH Q6H PRN PRN Reason: Itching Last Admin: 10/05/22 09:48 Dose: 25 mg Docusate Sodium (Docusate Sodium 100 Mg Capsule) 100 mg PO DAILY PRN PRN Reason: constipation Ferrous Sulfate (Ferrous Sulfate 324 Mg Tablet.Dr) 324 mg PO DAILY [facility] Furosemide (Furosemide 40 Mg/4 Ml Vial) 40 mg IVPUSH DAILY [facility]; Protocol Last Admin: 10/05/22 07:53 Dose: 40 mg Glucose (Glucose Gel 15 Gm Gel..Gram.) 15 gm PO Q15M PRN; Protocol PRN Reason: per Hypoglycemia Standing Ord. Heparin Sodium (Porcine) (Heparin Sodium,Porcine 5,000 Unit/Ml Vial) 5,000 unit SUBCUT Q12H [facility] Last Admin: 10/05/22 01:33 Dose: Not Given Hydralazine HCl (Hydralazine Hcl 25 Mg Tablet) 75 mg PO TID [facility]; Protocol Last Admin: 10/05/22 09:42 Dose: Not Given Hydromorphone HCl (Hydromorphone Hcl 0.5 Mg/0.5 Ml Syringe) 0.5 mg IVPUSH Q4H PRN; Protocol PRN Reason: Pain, Severe (Pain Scale 7-10) Last Admin: 10/05/22 09:49 Dose: 0.5 mg Insulin Human Lispro (Insulin Lispro 100 Unit/Ml 3 Ml Vial) 0 unit SUBCUT QIDACHS [facility]; Protocol Last Admin: 10/05/22 08:33 Dose: Not Given Losartan Potassium (Losartan Potassium 25 Mg Tablet) 25 mg PO DAILY [facility]; Protocol Last Admin: 10/05/22 09:42 Dose: Not Given Nifedipine (Nifedipine Er 60 Mg Tab.Er.24) 60 mg PO DAILY [facility]; Protocol Last Admin: 10/05/22 09:42 Dose: Not Given Omeprazole (Omeprazole 40 Mg Capsule.Dr) 40 mg PO DAILY@0630 [facility] Ondansetron HCl (Ondansetron Hcl 4 Mg/2 Ml Vial) 4 mg IVPUSH Q8H PRN PRN Reason: Nausea and Vomiting Oxycodone HCl (Oxycodone Hcl Immed Release 5 Mg Tablet) 5 mg PO Q6H PRN PRN Reason: severe pain Sodium Chloride (0.9 % Sodium Chloride Flush 3 Ml Syringe) 3 ml IVFLUSH QSHIFT [facility] Last Admin: 10/05/22 09:48 Dose: 3 ml Home Medications Medication Instructions Recorded Confirmed Last Taken Type docusate sodium 100 mg capsule 100 mg PO DAILY PRN constipation 08/13/22 10/05/22 Unknown History oxycodone 5 mg tablet 5 mg PO Q6H PRN severe pain 08/13/22 10/05/22 Unknown History hydralazine 25 mg tablet 75 mg PO TID 08/25/22 10/05/22 08/24/22 History Physical Exam Vital Signs: Last Vital Signs Temp 97.0 F 10/05/22 07:32 Pulse 95 10/05/22 07:32 Resp 20 10/05/22 07:32 BP 170/100 H 10/05/22 07:32 Pulse Ox 97 10/05/22 07:32 O2 Del Method Room Air 10/05/22 07:32 O2 Flow Rate 2 10/05/22 03:16 BMI result Body Mass Index 29.3 Const General: cooperative and no acute distress Orientation/consciousness: patient oriented x3 Eyes Other: blood in the right eye Pupils: Equal, round and reactive pupils present Resp Other: bilateral crackles Effort & Inspection: normal respiratory effort Cardio Rate: regular rate Rhythm: regular rhythm GI Other: abdominal tenderness, worse in the gaps gastric region, no rebound or guarding Palpation (GI): Soft to palpation Auscultation: normal bowel sounds Skin General skin exam: no rashes or lesions noted Neuro General: patient oriented x3 Cranial nerves: Yes Equal, round and reactive pupils present Cognition (Neuro): normal cognition Extrem General: Yes normal to inspection and Yes no pedal edema Results Lab Results 10/04/22 17:36 10/04/22 17:36 Lab results: Chemistry 10/04/22 17:36 Sodium 139 Potassium 5.9 H D Carbon Dioxide 21 L BUN 39 H Creatinine 4.17 H* Calcium 9.4 D Hematology 10/04/22 17:36 WBC 5.4 Hgb 8.0 L Plt Count 138 L D Urinalysis 10/05/22 03:32 Urine Color Yellow Urine Appearance Clear Urine pH 7.0 Ur Specific [place] 1.010 Urine Protein >=1000 (4+) H Urine Glucose (UA) 100 H Urine Ketones Negative Urine Blood Trace H Urine Nitrite Negative Ur Leukocyte Esterase Negative Urine RBC 11-20 H Urine WBC 0-5 Ur Squamous Epith Cells 0-2 Hyaline Casts 0-2 Assessment and Plan (1) Acute on chronic systolic and diastolic heart failure, NYHA class 3: Status: Acute (2) Gastroparesis: Status: Acute Plan 32-year-old female with extensive past medical history including CAD, ESRD on dialysis, CHF with reduced ejection fraction comes into the hospital with complaints of nausea vomiting abdominal pain as well as shortness of breath after missing dialysis # acute volume overload - secondary to missed dialysis Keep on low-sodium diet. We will arrange for dialysis today and remove fluid as tolerated. # hyperkalemia - secondary to ESRD, missed dialysis # acute diabetic gastroparesis - has nausea vomiting, epigastric pain - # hypertension - elevated due to hypovolemia Plan We will arrange for dialysis today. We will dialyze again tomorrow. Remove fluid as tolerated. Reassess blood pressure after fluid removal. Discussed compliance with the patient. She wants to try home dialysis. This patient is blind and she can not perform home dialysis by herself. However, Her sister Josy is a healthcare proxy will be helping her. I will discuss with adjustment to see if she is willing to undertake this endeavor. Keep on low-sodium low-potassium diet. Check phosphorus levels Time Spent With Patient Time: Total time managing care of this patient today ____ minutes. Procedures Date of Service Date of Service: 10/05/22
[2022-10-05 11:23] LABS: Glucose, Whole Blood 113 mg/dL (60-115)
[2022-10-05 17:52] LABS: Glucose, Whole Blood 83 mg/dL (60-115)
[2022-10-05] MEDS: hydrALAZINE HCl 20 MG/ML VIAL 10 MG IVPUSH (18:49)
[2022-10-05 21:03] LABS: Glucose, Whole Blood 89 mg/dL (60-115)
[2022-10-05] MEDS: Metoclopramide HCl 10 MG/2 ML VIAL 5 MG IVPUSH (22:06)
[2022-10-06] MEDS: 0.9 % Sodium Chloride Flush 3 ML SYRINGE IVFLUSH ×4 (01:12→21:27)
[2022-10-06 03:09] VITALS: BP 198/109; PULSE 96; RESP 19; TEMP 36.2; O2SAT 96
[2022-10-06] MEDS: HYDROmorphone HCl 0.5 MG/0.5 ML SYRINGE IVPUSH ×5 (03:17→21:27)
[2022-10-06 07:17] LABS: Glucose, Whole Blood 61 mg/dL (60-115)
[2022-10-06 07:18] VITALS: BP 189/91; PULSE 94; RESP 18; TEMP 36.1; O2SAT 99
[2022-10-06] MEDS: Furosemide 40 MG/4 ML VIAL IVPUSH (07:26)
[2022-10-06] MEDS: NIFEdipine ER 60 MG TAB.ER.24 PO (07:27)
[2022-10-06] MEDS: Losartan Potassium 25 MG TABLET PO (07:27)
[2022-10-06] MEDS: Glucose Gel 15 GM GEL..GRAM. PO (07:28)
[2022-10-06] MEDS: diphenhydrAMINE HCL 50 MG/ML VIAL 25 MG IVPUSH ×2 (07:31→21:27)
--- NOTE | 2022-10-06 07:32 | PC.NURSE ---
Addendum entered by Sia Mejia RN 10/06/22 13:07: POC improved. Pt states her nausea is controlled at this time, c/o pain - medicated per MAR. Brought to dialysis. Original Note: report recieved from overnight RN, pt refusing PO medications, educated on importance then pt agree to take two blood pressure pills. C/o pain, medicated per MAR. POC 61, glucose gel administered per protocol. Safety precautions remain in place, call moore within reach.
--- NOTE | 2022-10-06 08:03 | PM.GICN ---
History of Present Illness Data of Consult Service Date: 10/06/22 Requesting physician: Cheyenne Sears Primary Care Provider: Unknown Physician HPI Reason for consult: Persistant vomiting, hx Gastroparesis 32 YF with HTN, CHFrEF,? ESRD on dialysis Sunday,? DM, diabetic retinopathy, peripheral vascular disease, diabetic gastroparesis, chronic hypoxemic respiratory failure on baseline oxygen seen at [facility] [place] [place] [facility] on 10/04/22 with complaints of nausea, vomiting and abdominal pain for the past 4 days.? Patient reported having / epigastric pain, nonradiating, intermittent and associated with significant nausea vomiting.? As a result she missed her dialysis on Sunday and noted shortness of breath with minimal exertion, chest pain and orthopnea PND.? Patient denied any fever chills, no urinary symptoms no? numbness tingling or weakness.? Pt denies recent change in bowel habits - has a BM every 3-4 days without straining or hard stool. Labs showed WBC count of 5.4, hemoglobin of 8 chronically around the same level, potassium 5.9 patient refuse Lokelma, creatinine of 4.17, BNP of 4346, troponin of 25 decreased to 24, UA negative for acute infection Pt was admitted for further management and started on IV pain medications, antiemetics and IV metoclopramide and PO omeprazole. Pt reports abd pain is better and denies having any vomiting today. She tolerated her breakfast this morning 10/05/[address] SCAN SHOWED: 1.? No acute findings in the abdomen or pelvis. No inflammatory changes. 2.? Numerous bilateral nonobstructing renal calculi. 3.? Small right-sided pleural effusion. 08/28/22 UGI SHOWED: Exam is limited due to patient mobility. There is delayed passage of oral contrast through the stomach. There is no evidence of mechanical obstruction/gastric outlet obstruction. There may be delayed gastric emptying. There is contrast collection with surrounding radiating folds suggestive of an ulcer in the body of the stomach. The stomach and duodenum are otherwise normal. 09/01/22 EGD WAS PERFORMED BY DR BENNETT: Esophagus: GE junction at 43? cm, diaphragm hiatus at 43 cm, irregular Z line with possible barretts Stomach: Patchy gastric erythema. Biopsies were obtained. Grade 2 flap valve on retroflexed examination of the cardia. Large amount of food in the stomach. No ulcer or mass seen Duodenum: Unable to enter due to food blocking pylorus, Impression/Findings: gastroparesis posisble barretts PLAN: Iv erythromycin 250 mg q8h for 48 hr with reglan and relistor, watch QTc, optimize lytes repeat EGD in near future if H pylori pos then treat cont with PPI Review of Systems Review of Systems: Yes all other systems are reviewed and are negative [facility] Past Medical History Medical History (Updated 01/25/23 @ 10:48 by Micky Cotton MD) HFrEF (heart failure with reduced ejection fraction) ESRD on dialysis Migraine Diabetic foot ulcer associated with type 2 diabetes mellitus Chronic pain Gastroparesis Non-compliance with renal dialysis Hypertension Hypertensive emergency Diabetes ESRD needing dialysis Cardiomyopathy Metabolic acidosis delivery delivered Anemia in chronic kidney disease (CKD) CKD (chronic kidney disease) Headache, migraine Abnormal finding on echocardiogram Elevated troponin Chest pain Acute worsening of stage 3 chronic kidney disease Generalized edema Sepsis Cellulitis Pleural effusion CHF (congestive heart failure) (~06/07/22) Tachycardia Atypical chest pain Bone infection PAD (peripheral artery disease) Severe anemia Cellulitis and abscess of foot DM foot ulcer Osteomyelitis test positive test positive Asthma Depression with anxiety Diabetic retinopathy Type 2 diabetes mellitus with hyperglycemia, with long-term current use of insulin Blind right eye Diabetes Back pain Family History Family History Mother Coronary artery disease Myocardial infarction Stroke Diabetes mellitus Father Myocardial infarction Surgical History Surgical History 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 Social History Social History Household Members: Unknown / Unable to assess Household Members Other:: Sister, [id number], nephew Housing: Unknown / Unable to assess Do you presently have visiting nurse or other home services: No (unknown) Alcohol intake: never Comment: refuses camera Patient Tobacco Use Status: Never used Tobacco e-Cigarette/Vaping Use: Never Used Second Hand Smoke Exposure: No Advance Directives Date on File: 03/08/20 service: No Current occupational status: unemployed and disabled Gender identity: Female Meds Allergies Allergy/AdvReac Type Severity Reaction Status Date / Time morphine [MORPHINE] Allergy Intermediate Itching Verified 01/20/23 18:48 azithromycin [From Zithromax] Allergy Hives Verified 01/20/23 18:48 gabapentin Allergy Facial Verified 01/20/23 18:48 Swelling tramadol Allergy Facial Verified 01/20/23 18:48 Swelling vancomycin Allergy Hives Verified 01/20/23 18:48 Active Medications: Current Medications Acetaminophen (Acetaminophen 325 Mg Tablet) 650 mg PO Q6H PRN PRN Reason: Pain, Mild (Pain Scale 1-3) Aspirin (Aspirin Enteric Coated 81 Mg Tablet.) 81 mg PO DAILY [facility] Last Admin: 10/06/22 07:32 Dose: Not Given Atorvastatin Calcium (Atorvastatin Calcium 40 Mg Tablet) 40 mg PO BEDTIME [facility] Last Admin: 10/05/22 22:14 Dose: Not Given Carvedilol (Carvedilol 12.5 Mg Tablet) 12.5 mg PO BID [facility]; Protocol Last Admin: 10/06/22 07:32 Dose: Not Given Clopidogrel Bisulfate (Clopidogrel Bisulfate 75 Mg Tablet) 75 mg PO DAILY [facility] Last Admin: 10/06/22 07:32 Dose: Not Given Dextrose (Dextrose 50 % 25 Gm/50 Ml Syringe) 25 gm IVPUSH Q15M PRN; Protocol PRN Reason: per Hypoglycemia Standing Ord. Diphenhydramine HCl (Diphenhydramine Hcl 50 Mg/Ml Vial) 25 mg IVPUSH Q6H PRN PRN Reason: Itching Last Admin: 10/06/22 07:31 Dose: 25 mg Docusate Sodium (Docusate Sodium 100 Mg Capsule) 100 mg PO DAILY PRN PRN Reason: constipation Ferrous Sulfate (Ferrous Sulfate 324 Mg Tablet.) 324 mg PO DAILY [facility] Last Admin: 10/06/22 07:32 Dose: Not Given Furosemide (Furosemide 40 Mg/4 Ml Vial) 40 mg IVPUSH DAILY [facility]; Protocol Last Admin: 10/06/22 07:26 Dose: 40 mg Glucose (Glucose Gel 15 Gm Gel..Gram.) 15 gm PO Q15M PRN; Protocol PRN Reason: per Hypoglycemia Standing Ord. Last Admin: 10/06/22 07:28 Dose: 15 gm Heparin Sodium (Porcine) (Heparin Sodium,Porcine 5,000 Unit/Ml Vial) 5,000 unit SUBCUT Q12H [facility] Last Admin: 10/06/22 00:36 Dose: Not Given Hydralazine HCl (Hydralazine Hcl 25 Mg Tablet) 75 mg PO TID [facility]; Protocol Last Admin: 10/06/22 07:32 Dose: Not Given Hydromorphone HCl (Hydromorphone Hcl 0.5 Mg/0.5 Ml Syringe) 0.5 mg IVPUSH Q4H PRN; Protocol PRN Reason: Pain, Severe (Pain Scale 7-10) Last Admin: 10/06/22 07:26 Dose: 0.5 mg Insulin Human Lispro (Insulin Lispro 100 Unit/Ml 3 Ml Vial) 0 unit SUBCUT QIDACHS [facility]; Protocol Last Admin: 10/06/22 07:18 Dose: Not Given Losartan Potassium (Losartan Potassium 25 Mg Tablet) 25 mg PO DAILY [facility]; Protocol Last Admin: 10/06/22 07:27 Dose: 25 mg Nifedipine (Nifedipine Er 60 Mg Tab.Er.24) 60 mg PO DAILY [facility]; Protocol Last Admin: 10/06/22 07:27 Dose: 60 mg Omeprazole (Omeprazole 40 Mg Capsule.Dr) 40 mg PO DAILY@0630 [facility] Last Admin: 10/06/22 05:39 Dose: Not Given Ondansetron HCl (Ondansetron Hcl 4 Mg/2 Ml Vial) 4 mg IVPUSH Q8H PRN PRN Reason: Nausea and Vomiting Oxycodone HCl (Oxycodone Hcl Immed Release 5 Mg Tablet) 5 mg PO Q6H PRN PRN Reason: severe pain Sodium Chloride (0.9 % Sodium Chloride Flush 3 Ml Syringe) [facility] Last Admin: 10/06/22 07:28 Dose: 3 ml Physical Exam Vital Signs: Vital Signs: Last Vital Signs Temp 97.0 F 10/06/22 07:18 Pulse 94 10/06/22 07:18 Resp 18 10/06/22 07:18 BP 189/91 H 10/06/22 07:18 Pulse Ox 99 10/06/22 07:18 O2 Del Method Nasal Cannula 10/06/22 07:18 O2 Flow Rate 1 10/06/22 07:18 BMI result Body Mass Index 29.3 Const: General: no acute distress and ill appearing (Chronically ill-appearing) Nutritional Appearance: overweight Orientation/consciousness: patient oriented x3 HEENT: Head: Yes normal to inspection Ears: hearing grossly normal bilaterally Eyes: Sclerae: sclerae normal Pupils: Equal, round and reactive pupils present Neck: Neck: Yes normal visual inspection Chest: Chest palpation & inspection: normal inspection of the chest Resp: Effort & Inspection: normal respiratory effort Auscultation: clear to auscultation bilaterally Cardio: Palpation: normal PMI Rate: regular rate Rhythm: regular rhythm Heart sounds: S1 normal heart sound present, S2 normal heart sound present and no murmurs GI: Palpation (GI): Soft to palpation, Tenderness to palpation present (GI) (Mild epigastric tenderness without rebound) and No hepatosplenomegaly present Auscultation: normal bowel sounds Rectal Exam - Female: deferred Skin: General skin exam: no rashes or lesions noted Neuro: General: patient oriented x3, gait normal and moves all extremities Cranial nerves: Yes Equal, round and reactive pupils present Psych: Appearance: grossly normal Mental Status: mental status grossly normal Results Labs 10/04/22 17:36 10/07/22 07:44 Microbiology Microbiology Results: Microbiology 10/04/22 17:36 Blood - Venous Blood Culture - Preliminary No growth after 24 hours. 10/04/22 17:36 Blood - Venous Blood Culture - Preliminary No growth after 24 hours. Assessment and Plan (1) Vomiting: Status: Resolved (2) Gastroparesis: Status: Inactive Plan 32 YF with HTN, CHFrEF,? ESRD on dialysis Sunday,? DM, diabetic retinopathy, peripheral vascular disease, diabetic gastroparesis, chronic hypoxemic respiratory failure on baseline oxygen admitted to [facility] [place] [place] with complaints of nausea, vomiting and abdominal pain for the past 4 days.? Pt missed her dialysis on Sunday and is scheduled for HD today at 2:45 pm.? Pt was admitted for further management and started on IV pain medications, antiemetics and IV metoclopramide and PO omeprazole. Pt reports abd pain is better and denies having any vomiting today. She tolerated her breakfast this morning Her symptoms are likely related to gastroparesis Pt appears to have improved with medical treatment RECOMMENDATIONS: 1. IV pain medications, antiemetics and IV metoclopramide and PO omeprazole. 2. If symptoms continue to improve and she is able to tolerate PO diet, pt can be discharged home 3. If symptoms persist, I will schedule an EGD on 10/09/22 Time Spent With Patient Time: Total time managing care of this patient today ____ minutes. Procedures Date of Service Date of Service: 01/28/23
[2022-10-06 08:09] LABS: Glucose, Whole Blood 58 mg/dL (60-115)
[2022-10-06 09:04] LABS: Glucose, Whole Blood 69 mg/dL (60-115)
[2022-10-06] MEDS: Metoclopramide HCl 10 MG/2 ML VIAL 5 MG IVPUSH (09:10)
[2022-10-06 09:49] LABS: Glucose, Whole Blood 122 mg/dL (60-115)
[2022-10-06 11:03] VITALS: BP 119/65; PULSE 92; RESP 20; TEMP 36.3; O2SAT 99
[2022-10-06 11:13] LABS: Glucose, Whole Blood 135 mg/dL (60-115)
--- NOTE | 2022-10-06 11:29 | HO.PM.IMPN ---
Subjective Subjective Date of Service: 10/06/22 Interval History: Seen and evaluated this morning complaining of nausea but no vomiting trying to take her pills plan for dialysis again today no other overnight events Review of Systems Review of Systems: Yes all other systems are reviewed and are negative Physical Exam Vital Signs: Vital Signs: Last Vital Signs Temp 97.3 F 10/06/22 11:03 Pulse 92 10/06/22 11:03 Resp 20 10/06/22 11:03 BP 119/65 10/06/22 11:03 Pulse Ox 99 10/06/22 11:03 O2 Del Method Nasal Cannula 10/06/22 11:03 O2 Flow Rate 2 10/06/22 11:03 BMI result Body Mass Index 29.3 Const: Other: Constitutional : Awake, interactive Neck : Normal inspection, Supple Eyes: Legally blind Cardiovascular : RRR, elevated? JVP, trace lower extremity edema Respiratory : fair bilateral air entry,? basal fine crackles, no wheezes or rhonchi Gastrointestinal:? soft, lax, Normal bowel sounds, Non tender Skin : Warm, Dry. PErmacath place clean with no erthyma Neurological : Alert & oriented x3, No focal deficit Objective Data Active Medications Acetaminophen (Acetaminophen 325 Mg Tablet) 650 mg PO Q6H PRN PRN Reason: Pain, Mild (Pain Scale 1-3) Aspirin (Aspirin Enteric Coated 81 Mg Tablet.) 81 mg PO DAILY [facility] Last Admin: 10/06/22 07:32 Dose: Not Given Documented By: SEAN Non-Admin Reason: Patient Refused Atorvastatin Calcium (Atorvastatin Calcium 40 Mg Tablet) 40 mg PO BEDTIME [facility] Last Admin: 10/05/22 22:14 Dose: Not Given Documented By: KARLI Non-Admin Reason: refused, too nauseous Carvedilol (Carvedilol 12.5 Mg Tablet) 12.5 mg PO BID [facility]; Protocol Last Admin: 10/06/22 07:32 Dose: Not Given Documented By: SEAN Non-Admin Reason: Patient Refused Clopidogrel Bisulfate (Clopidogrel Bisulfate 75 Mg Tablet) 75 mg PO DAILY [facility] Last Admin: 10/06/22 07:32 Dose: Not Given Documented By: SEAN Non-Admin Reason: Patient Refused Dextrose (Dextrose 50 % 25 Gm/50 Ml Syringe) 25 gm IVPUSH Q15M PRN; Protocol PRN Reason: per Hypoglycemia Standing Ord. Diphenhydramine HCl (Diphenhydramine Hcl 50 Mg/Ml Vial) 25 mg IVPUSH Q6H PRN PRN Reason: Itching Last Admin: 10/06/22 07:31 Dose: 25 mg Documented By: SEAN Docusate Sodium (Docusate Sodium 100 Mg Capsule) 100 mg PO DAILY PRN PRN Reason: constipation Ferrous Sulfate (Ferrous Sulfate 324 Mg Tablet.Dr) 324 mg PO DAILY [facility] Last Admin: 10/06/22 07:32 Dose: Not Given Documented By: SEAN Non-Admin Reason: Patient Refused Furosemide (Furosemide 40 Mg/4 Ml Vial) 40 mg IVPUSH DAILY [facility]; Protocol Last Admin: 10/06/22 07:26 Dose: 40 mg Documented By: SEAN Glucose (Glucose Gel 15 Gm Gel..Gram.) 15 gm PO Q15M PRN; Protocol PRN Reason: per Hypoglycemia Standing Ord. Last Admin: 10/06/22 07:28 Dose: 15 gm Documented By: SEAN Heparin Sodium (Porcine) (Heparin Sodium,Porcine 5,000 Unit/Ml Vial) 5,000 unit SUBCUT Q12H [facility] Last Admin: 10/06/22 00:36 Dose: Not Given Documented By: KARLI Non-Admin Reason: Patient Refused Hydralazine HCl (Hydralazine Hcl 25 Mg Tablet) 75 mg PO TID [facility]; Protocol Last Admin: 10/06/22 07:32 Dose: Not Given Documented By: SEAN Non-Admin Reason: Patient Refused Hydromorphone HCl (Hydromorphone Hcl 0.5 Mg/0.5 Ml Syringe) 0.5 mg IVPUSH Q4H PRN; Protocol PRN Reason: Pain, Severe (Pain Scale 7-10) Last Admin: 10/06/22 07:26 Dose: 0.5 mg Documented By: SEAN Insulin Human Lispro (Insulin Lispro 100 Unit/Ml 3 Ml Vial) 0 unit SUBCUT QIDACHS [facility]; Protocol Last Admin: 10/06/22 07:18 Dose: Not Given Documented By: SEAN Non-Admin Reason: No Insulin Coverage Losartan Potassium (Losartan Potassium 25 Mg Tablet) 25 mg PO DAILY [facility]; Protocol Last Admin: 10/06/22 07:27 Dose: 25 mg Documented By: SEAN Nifedipine (Nifedipine Er 60 Mg Tab.Er.24) 60 mg PO DAILY [facility]; Protocol Last Admin: 10/06/22 07:27 Dose: 60 mg Documented By: SEAN Omeprazole (Omeprazole 40 Mg Capsule.Dr) 40 mg PO DAILY@0630 [facility] Last Admin: 10/06/22 05:39 Dose: Not Given Documented By: HARVINDER Non-Admin Reason: Patient Refused Ondansetron HCl (Ondansetron Hcl 4 Mg/2 Ml Vial) 4 mg IVPUSH Q8H PRN PRN Reason: Nausea and Vomiting Oxycodone HCl (Oxycodone Hcl Immed Release 5 Mg Tablet) 5 mg PO Q6H PRN PRN Reason: severe pain Sodium Chloride (0.9 % Sodium Chloride Flush 3 Ml Syringe) 3 ml IVFLUSH QSHIFT [facility] Last Admin: 10/06/22 07:28 Dose: 3 ml Documented By: SEAN Labs 10/04/22 17:36 10/04/22 17:36 Labs: Laboratory Results - last 24 hr 10/05/22 10/05/22 10/06/22 17:49 20:58 07:12 POC Glucose 83 89 61 10/06/22 10/06/22 10/06/22 08:04 09:00 09:46 POC Glucose 58 L* 69 122 H 10/06/22 11:05 POC Glucose 135 H Microbiology Microbiology Results: Microbiology 10/04/22 17:36 Blood Culture - Preliminary Blood - Venous No growth after 24 hours. 10/04/22 17:36 Blood Culture - Preliminary Blood - Venous No growth after 24 hours. Assessment and Plan (1) Gastroparesis: Status: Acute (2) End stage chronic kidney disease: Status: Acute (3) Acute on chronic systolic and diastolic heart failure, NYHA class 3: Status: Acute (4) Vomiting: Status: Acute Plan 32-year-old female with extensive past medical history including CAD, ESRD on dialysis, CHF with reduced ejection fraction comes into the hospital with complaints of nausea vomiting abdominal pain as well as shortness of breath after missing dialysis # acute CHF exacerbation secondary to missed dialysis Continue HD today Lasix IV monitor I&O, daily weight, low-sodium diet # acute hypoxic respiratory failure secondary to volume overload oxygen supplement titration # hyperkalemia secondary to ESRD, missed dialysis dialysis follow BMP # acute diabetic gastroparesis recurrent nausea vomiting, epigastric pain abdominal CT negative p.r.n. antiemetics GI eval for gastroparesis # missed dialysis nephrology to consider peritoneal dialysis at home. # hypertension better controlled today resume home antihypertensives # history of CAD /chest pain troponin baseline, no EKG changes suggestive of ACS continue aspirin, carvedilol, Plavix # history of GERD continue PPI, DVT prophylaxis: Heparin subQ Given need for close management of above issues including no volume overload requiring dialysis and IV Lasix, hypoxia, hyperkalemia, patient will require overnight inpatient hospital stay for further management Time Spent With Patient Time: Total time managing care of this patient today ____ minutes. Quality Stroke Does the patient have a stroke diagnosis?: No VTE Prior VTE?: No VTE Risk Level:: Medical - moderate - high VTE Device Contraindication: Treatment Not Indicated VTE Drug Contraindication: N/A - Med Ordered
--- NOTE | 2022-10-06 12:47 | MHC.CM.PN ---
EMR REVIEWED, PLAN FOR HD TODAY, PER HOSPITALIST NEPHRO TO CONSIDER CHANGING PT TO PERITONEAL DIALYSIS AT HOME D/T MISSED HD. CM WILL CONT TO FOLLOW D/C NEEDS.
[2022-10-06 16:28] VITALS: BP 119/62; PULSE 84; RESP 14; TEMP 36.1; O2SAT 100
[2022-10-06 16:37] LABS: Glucose, Whole Blood 103 mg/dL (60-115)
--- NOTE | 2022-10-06 17:38 | W.PM.DNNEP ---
Subjective Subjective This patient was seen during dialysis. Interval history: Seen during HD, she is comfortable, breathing has improved by her report Physical Exam Vital Signs: Vital Signs: Last Vital Signs Temp 97 F 10/06/22 16:28 Pulse 84 10/06/22 16:28 Resp 14 10/06/22 16:28 BP 119/62 10/06/22 16:28 Pulse Ox 100 10/06/22 16:28 O2 Del Method Nasal Cannula 10/06/22 16:28 O2 Flow Rate 2 10/06/22 16:28 BMI result Body Mass Index 29.3 Const: Other: Constitutional : Awake, interactive Neck : Normal inspection, Supple Eyes: Legally blind Cardiovascular : RRR, elevated? JVP, trace lower extremity edema Respiratory : fair bilateral air entry,? basal fine crackles, no wheezes or rhonchi Gastrointestinal:? soft, lax, Normal bowel sounds, Non tender Skin : Warm, Dry. PErmacath place clean with no erthyma Neurological : Alert & oriented x3, No focal deficit General: cooperative and no acute distress Orientation/consciousness: patient oriented x3 Eyes: Other: blood in the right eye Pupils: Equal, round and reactive pupils present Resp: Other: bilateral crackles Effort & Inspection: normal respiratory effort Cardio: Rate: regular rate Rhythm: regular rhythm GI: Other: abdominal tenderness, worse in the gaps gastric region, no rebound or guarding Palpation (GI): Soft to palpation Auscultation: normal bowel sounds Skin: General skin exam: no rashes or lesions noted Neuro: General: patient oriented x3 Cranial nerves: Yes Equal, round and reactive pupils present Cognition (Neuro): normal cognition Extrem: General: Yes normal to inspection and Yes no pedal edema Assessment & Plan Assessment and plan (1) End stage chronic kidney disease: Status: Acute (2) Acute on chronic systolic and diastolic heart failure, NYHA class 3: Status: Acute (3) Headache, migraine: Status: Acute Plan HD M W F Achieve dry weight Treat gastroparesis Time Spent With Patient Time: Total time managing care of this patient today ____ minutes. Procedures Date of Service Date of Service: 10/06/22
[2022-10-06 19:38] VITALS: BP 113/64; PULSE 96; RESP 16; TEMP 36.3; O2SAT 99
[2022-10-06 20:00] LABS: Glucose, Whole Blood 141 mg/dL (60-115)
[2022-10-06 23:15] VITALS: BP 114/60; PULSE 84; RESP 17; TEMP 36.3; O2SAT 100
[2022-10-07] MEDS: HYDROmorphone HCl 0.5 MG/0.5 ML SYRINGE IVPUSH ×3 (01:52→10:15)
[2022-10-07 03:16] VITALS: BP 132/76; PULSE 82; RESP 17; TEMP 37.1; O2SAT 99
[2022-10-07] MEDS: diphenhydrAMINE HCL 50 MG/ML VIAL 25 MG IVPUSH (04:53)
[2022-10-07 06:00] VITALS: BMI 25.7
--- NOTE | 2022-10-07 06:41 | PC.NURSE ---
Pt refused AM labs. aware.
[2022-10-07 07:12] VITALS: BP 113/61; PULSE 84; RESP 20; TEMP 36.3; O2SAT 99
[2022-10-07 07:14] LABS: Glucose, Whole Blood 99 mg/dL (60-115)
[2022-10-07] MEDS: Clopidogrel Bisulfate 75 MG TABLET PO (08:27)
[2022-10-07] MEDS: NIFEdipine ER 60 MG TAB.ER.24 PO (08:27)
[2022-10-07] MEDS: Losartan Potassium 25 MG TABLET PO (08:28)
[2022-10-07] MEDS: 0.9 % Sodium Chloride Flush 3 ML SYRINGE IVFLUSH (08:28)
[2022-10-07] MEDS: Furosemide 40 MG/4 ML VIAL IVPUSH (08:28)
[2022-10-07] MEDS: Metoclopramide HCl 10 MG/2 ML VIAL 5 MG IVPUSH (08:28)
[2022-10-07] MEDS: carvediloL 12.5 MG TABLET PO (08:28)
[2022-10-07 09:12] LABS: Anion Gap 12 (12-20); Blood Urea Nitrogen 20 mg/dL (9-16); Calcium 8.7 mg/dL (8.4-10.2); Carbon Dioxide 22 mmol/L (22-29); Chloride 104 mmol/L (96-108); Creatinine Clr Calc Pharmacy 25.1; Estimated Glomerular Filt Rate 17; Glucose Random 103 mg/dL (60-115); Potassium 4.2 mmol/L (3.3-5.1); Sodium 134 mmol/L (135-145)
--- NOTE | 2022-10-07 10:49 | PM.DS ---
DS: Providers Provider Date of Service: 10/07/22 Date of admission: 10/05/22 00:42 Primary care physician: Abdon Beard MD Consults: 10/05/22 00:40 Consult to Nephrology Routine Consulting Provider: [facility] Reason for consultation: volume overload,missed dialysis 10/06/22 07:40 Consult to Gastroenterology Routine Consulting Provider: Phillip Mijares Reason for consultation: Persistant vomiting, hx Gastroparesis for eval and rec DS: Diagnosis Discharge Diagnosis (1) Vomiting: Status: Acute (2) Gastroparesis: Status: Acute (3) End stage chronic kidney disease: Status: Acute DS: Summary Hospital Course Hospital Course: Admission note HPI ?32-year-old female past medical history of HTN, CHFrEF,? ESRD on dialysis Sunday,? DM, diabetic retinopathy, peripheral vascular disease, diabetic gastroparesis, chronic hypoxemic respiratory failure on baseline oxygen p.r.n. comes into the hospital with complaints of nausea vomiting abdominal pain for the past 3 days.? Patient reports that she has epigastric abdominal pain, nonradiating, intermittent, 10/05, associated with significant nausea vomiting.? As a result she missed her dialysis on Sunday and now has significant shortness of breath with minimal exertion, orthopnea PND.? patient reports chest pain worse with deep inspiration, as well as coughing, pain is localized under the left breast, nonradiating.? not related to exertion or rest. ?patient denies any fever chills, no urinary symptoms no? numbness tingling or weakness.? On arrival to the ED patient hemodynamically stable with slightly elevated blood pressure? and oxygen of 88 on room air Labs are significant for WBC count of 5.4, hemoglobin of 8 chronically around the same level, potassium 5.9 patient refuse Lokelma, creatinine of 4.17, BNP of 4346, troponin of 25 decreased to 24, UA negative for acute infection. Abdominal pelvic CT negative for acute abnormality, chest x-ray shows no acute pulmonary disease. ?patient given Lasix and will be admitted for further management Hospital course The patient was admitted for fluid overload resembling acute CHF exacerbation secondary to missed dialysis. Had 2 sessions of dialysis during hospital stay with significant improvement in her breathing as she received IV lasix as well. Discussed with nephrology the possibility of doing home peritoneal dialysis. Dr Walsh will follow with her sis ([employer]) if that is a valid option and arrange for it as outpatient. meanwhile she needs to continue dialysis as scheduled. weaned down Oxygen supplement. hyperkalemia secondary to ESRD and missed dialysis. resolved. She did also presented with acute diabetic gastroparesis as she had recurrent nausea vomiting, epigastric pain with abdominal CT negative for any acute findings. Improved with Reglan, PPI as she was seen by GI specialist. She was able to tolerate diet with no reported vomiting over last 24 hours. To be discharged on PRN Reglan and advance her diet as tolerated. BP was significantly elevated at presentation. Improved after dialysis and improvement of nausea as she was able to tolerate PO meds. Metoclopramide 30 minutes before meals when nauseated Oxycodone as needed for pain control Continue with dialysis as planned. To follow with Dr Walsh for outpatient peritoneal dialysis at home arrangements. Time Spent with Patient Time attestation: Total time managing care of this patient today ____ minutes. Discharge coordination time: Greater than 30 minutes Quality: Safe Use of Opioids Does Pt have an Active Cancer Diagnosis on the Problem List?: No Quality: Stroke Does the patient have a stroke diagnosis?: No Physical Exam Vital Signs: Vital Signs: Last Vital Signs Temp 97.3 F 10/07/22 07:12 Pulse 84 10/07/22 07:12 Resp 20 10/07/22 07:12 BP 113/61 10/07/22 07:12 Pulse Ox 99 10/07/22 07:12 O2 Del Method Room Air 10/07/22 07:12 O2 Flow Rate 2 10/07/22 03:16 BMI result Body Mass Index 25.7 Const: Other: Constitutional : Awake, interactive Neck : Normal inspection, Supple Eyes: Legally blind Cardiovascular : RRR, elevated? JVP, trace lower extremity edema Respiratory : fair bilateral air entry,? no crackles, no wheezes or rhonchi Gastrointestinal:? soft, lax, Normal bowel sounds, Non tender Skin : Warm, Dry. PErmacath place clean with no erthyma Neurological : Alert & oriented x3, No focal deficit DS: Data Data Completed and Pending Completed studies during hospitalization [Text1]: Procedures Detachment at Right Foot, Partial 1st Ray, Open Approach (03/01/20) Detachment at Right Foot, Partial 2nd Ray, Open Approach (03/01/20) Detachment at Right Foot, Partial 3rd Ray, Open Approach (03/01/20) Detachment at Right Foot, Partial 4th Ray, Open Approach (03/01/20) Detachment at Right Foot, Partial 5th Ray, Open Approach (03/01/20) Drainage of Right Pleural Cavity, Percutaneous Approach (01/14/21) Excision of Stomach, Pylorus, Via Natural or Artificial Opening Endoscopic, Diagnostic (08/27/22) Fluoroscopy of Superior Vena Cava, Guidance (08/14/22) Insertion of Infusion Device into Right Atrium, Percutaneous Approach (08/14/22) Insertion of Infusion Device into Superior Vena Cava, Percutaneous Approach (01/14/21) Insertion of Tunneled Vascular Access Device into Chest Subcutaneous Tissue and Fascia, Percutaneous Approach (08/14/22) Performance of Urinary Filtration, Intermittent, Less than 6 Hours Per Day (09/16/22) Removal of Infusion Device from Great Vessel, External Approach (01/14/21) Transfusion of Nonautologous Red Blood Cells into Peripheral Vein, Percutaneous Approach (04/22/22) Labs on day of discharge: Laboratory Results - last 24 hr 10/06/22 10/06/22 10/06/22 11:05 16:30 19:53 Sodium Potassium Chloride Carbon Dioxide Anion Gap BUN Creatinine Estim Creat Clear Calc Estimated GFR POC Glucose 135 H 103 141 H Random Glucose Calcium 10/07/22 10/07/22 07:11 07:44 Sodium 134 L Potassium 4.2 D Chloride 104 Carbon Dioxide 22 Anion Gap 12 BUN 20 H Creatinine 3.21 H Estim Creat Clear Calc 25.1 Estimated GFR 17 POC Glucose 99 Random Glucose 103 Calcium 8.7 D Preliminary micro results at discharge 10/04/22 17:36 Blood Culture - Preliminary Blood - Venous No growth after 48 hours. 10/04/22 17:36 Blood Culture - Preliminary Blood - Venous No growth after [address] scan - abdomen: Radiologist's impression: ITS Impressions Chest X-Ray 10/04/22 17:43 IMPRESSION: No acute pulmonary disease. Abdomen/Pelvis CT 10/05/22 00:08 IMPRESSION: 1. No acute findings in the abdomen or pelvis. No inflammatory changes. 2. Numerous bilateral nonobstructing renal calculi. 3. Small right-sided pleural effusion. Fleischner guidelines were followed. Discharge Plan Discharge Anticipated Discharge Date/Time: 10/07/22 10:35 Patient Disposition: Home, Self-Care Discharge Diagnosis: Gastroparesis Hypertension Referrals: Abdon Beard MD [Primary Care Provider] - 1 Week Discharge Medications: New metoclopramide HCl 5 mg tablet 5 mg PO DAILY PRN (Reason: nausea and vomiting) Qty: 30 0RF Continued hydralazine 25 mg tablet 75 mg PO TID metoclopramide HCl 5 mg Tablet 5 mg PO TIDAC PRN (Reason: (Drug) Ingestion) Qty: 90 0RF oxycodone 5 mg tablet 5 mg PO Q6H PRN (Reason: severe pain) Qty: 20 0RF docusate sodium 100 mg capsule 100 mg PO DAILY PRN (Reason: constipation) atorvastatin 40 mg Tablet 40 mg PO BEDTIME Qty: 90 0RF clopidogrel 75 mg Tablet 75 mg PO DAILY Qty: 90 0RF aspirin 81 mg Tablet,Delayed Release (Dr/Ec) 81 mg PO DAILY Qty: 90 0RF losartan 25 mg Tablet 25 mg PO DAILY Qty: 90 0RF Protocol: Hold for SBP< HOLD for SBP < : 90 omeprazole 40 mg Capsule,Delayed Release(Dr/Ec) 40 mg PO DAILY@0630 Qty: 90 0RF carvedilol 12.5 mg tablet 12.5 mg PO BID Qty: 120 0RF torsemide 20 mg tablet 40 mg PO BID Qty: 180 0RF nifedipine 60 mg tablet extended release 24hr 60 mg PO DAILY Qty: 90 0RF ferrous fumarate [Ferrocite] 324 mg (106 mg iron) tablet 324 mg PO DAILY Qty: 90 0RF glipizide 2.5 mg tablet extended release 24hr 2.5 mg PO DAILY Qty: 90 0RF ondansetron 4 mg tablet,disintegrating 4 mg PO Q8H PRN (Reason: nausea and vomiting) 5 Days Qty: 12 0RF Discharge Orders: Discharge Order (Routine); Ordered 10/07/22 Ordered By: Cheyenne Sears Diet: Advance to usual diet Activity on Discharge: As tolerated Stand Alone Forms: Patient Portal Discharge page Care Plan Goals: Read below Health Concerns: Read below Plan of Treatment: Read below Assessment: Metoclopramide 30 minutes before meals when nauseated Oxycodone as needed for pain control Continue with dialysis as planned. To follow with Dr Walsh for outpatient peritoneal dialysis at home arrangements.
[2022-10-07 11:16] VITALS: BP 97/57; PULSE 75; RESP 20; TEMP 36.3; O2SAT 94
[2022-10-07 11:17] LABS: Glucose, Whole Blood 165 mg/dL (60-115)
--- NOTE | 2022-10-07 11:32 | MHC.CM.PN ---
order for home, self care. CM acknowledge.
== END 2022-10-07 13:26 | disposition home or self-care (01) | DRG 640 ==
LOC: HO.ED 10-05 00:26 → HO.EDOVER 10-05 00:45 → HO.IMC 10-05 05:13
PROVIDERS: Admitting Provider Internal Medicine; Emergency Provider Internal Medicine; PCP Internal Medicine; Visit Provider Student in an Organized Health Care Education/Training Program
DX: E87.70 Fluid overload, unspecified (principal); I50.43 Acute on chronic combined systolic (congestive) and diastolic (congestive) heart failure; N18.6 End stage renal disease; J96.21 Acute and chronic respiratory failure with hypoxia; I13.2 Hypertensive heart and chronic kidney disease with heart failure and with stage 5 chronic kidney disease, or end stage renal disease; E11.22 Type 2 diabetes mellitus with diabetic chronic kidney disease; Z99.81 Dependence on supplemental oxygen; Z99.2 Dependence on renal dialysis; I25.10 Atherosclerotic heart disease of native coronary artery without angina pectoris; K21.9 Gastro-esophageal reflux disease without esophagitis; E11.43 Type 2 diabetes mellitus with diabetic autonomic (poly)neuropathy; K31.84 Gastroparesis; E87.5 Hyperkalemia; Z20.822 Contact with and (suspected) exposure to COVID-19; Z91.158 Patient's noncompliance with renal dialysis for other reason; Z79.4 Long term (current) use of insulin; Z79.02 Long term (current) use of antithrombotics/antiplatelets; Z79.84 Long term (current) use of oral hypoglycemic drugs; Z79.899 Other long term (current) drug therapy
CPT/HCPCS: 36415; 71045; 74176; 80048; 80053; 81001; 82947; 83605; 83690; 83880; 84484; 85025; 87040; 87635; 90999; 93005; 99285; J0613; J1170; J1200; J1940; J2405; J2765

== ENCOUNTER → 2022-10-04 17:19 | Outpatient (BNV) | payer OTHER, SELFPAY | PROVIDERS: Admitting Provider Internal Medicine; Emergency Provider Internal Medicine; Visit Provider Internal Medicine Cardiovascular Disease | DX: R00.0 Tachycardia, unspecified (principal) | CPT/HCPCS: 93010 ==

== ENCOUNTER → 2022-10-05 00:42 | Outpatient (BNV) | payer OTHER, SELFPAY | PROVIDERS: Admitting Provider Internal Medicine; Emergency Provider Internal Medicine; Visit Provider Internal Medicine | DX: R11.10 Vomiting, unspecified (principal); K31.84 Gastroparesis; N18.6 End stage renal disease | CPT/HCPCS: 99223; 99233; 99239; 99499 ==

== ENCOUNTER → 2022-10-05 00:42 | Outpatient (BNV) | payer OTHER, SELFPAY | PROVIDERS: Admitting Provider Internal Medicine; Emergency Provider Internal Medicine; PCP Internal Medicine; Visit Provider Internal Medicine Gastroenterology | DX: K31.84 Gastroparesis (principal) | CPT/HCPCS: 99222 ==

== ENCOUNTER 2022-10-21 19:50 | Inpatient (IN) | payer OTHER, SELFPAY ==
--- NOTE | ~2022-10-21 | XR_ITS ---
EXAMINATION: XR CHEST CLINICAL INFORMATION: Abdominal pain. COMPARISON: Chest radiograph 10/04/2022. TECHNIQUE: Frontal view of the chest was obtained. FINDINGS: Right chest wall catheter with tip projecting over the proximal right atrium. Stable prominence of the cardiomediastinal silhouette. No focal airspace opacity. Trace amount of pleural fluid tracking along the right minor fissure. No pneumothorax. No acute osseous findings. The visualized upper abdomen is within normal limits. XR/XR chest 1V IMPRESSION: 1. Small amount of pleural fluid tracking within the right minor fissure. 2. Stable enlargement of the cardiomediastinal silhouette.
--- NOTE | ~2022-10-21 | XR_ITS ---
EXAMINATION: XR FOOT, LEFT CLINICAL INFORMATION: Pain, ulceration COMPARISON: 07/24/2022 TECHNIQUE: AP, lateral, and oblique views of the left foot. FINDINGS: Soft tissue swelling noted particularly overlying the plantar aspect of the midfoot with a small ulceration. No soft tissue air. Postsurgical changes neuropathic changes appears similar. There are no findings of osteomyelitis. No radiopaque foreign body. XR/XR foot LT min 3V IMPRESSION: Soft tissue swelling and ulceration as above. No evidence for osteomyelitis.
--- NOTE | ~2022-10-21 | CT_ITS ---
EXAMINATION: CT ABDOMEN AND PELVIS WITHOUT CONTRAST CLINICAL INFORMATION: Diffuse abdominal pain COMPARISON: 10/04/2022 TECHNIQUE: Multidetector volumetric imaging was performed from the superior aspect of the liver through the pubic symphysis. Sagittal and coronal reformatted images were obtained on the technologist's workstation. This CT examination was performed using dose optimization techniques as appropriate, variously including the following: *Automated exposure control *Adjustment of mA and/or kV according to patient size (this includes techniques or standardized protocols for targeted exams where dose is matched to indication/reason for exam; i.e. extremities or head) *Use of iterative reconstruction technique DLP: 604 mGy-cm FINDINGS: LUNG BASES: Similar degree of layering right-sided pleural effusion. No infiltrate. Trace stable pericardial effusion versus thickening. LIVER, GALLBLADDER, AND BILIARY TREE: The liver is normal in size, shape, and attenuation. No focal hepatic lesion or biliary ductal dilatation is present. Clips consistent with cholecystectomy. PANCREAS: Unremarkable. SPLEEN: Unremarkable. ADRENAL GLANDS: Unremarkable. KIDNEYS AND URETERS: The kidneys are normal in size, shape, and attenuation. No hydronephrosis, hydroureter, or calculi seen. No perinephric stranding. Favor predominantly vascular calcifications consistent with arteriosclerosis. No stones seen. BLADDER: Unremarkable. GASTROINTESTINAL TRACT: The small and large bowel are unremarkable. The appendix is unremarkable. ABDOMINAL WALL: No significant hernia is appreciated. LYMPH NODES: Stable generalized mildly enlarged lymph nodes throughout the retroperitoneum and pelvis extending to the inguinal location. VASCULAR: Unremarkable. PELVIC VISCERA: Unremarkable. OSSEOUS STRUCTURES: Unremarkable. CT/CT abdomen pelvis wo IV con IMPRESSION: 1. No acute findings. 2. Stable generalized lymphadenopathy as above. 3. Stable right-sided pleural effusion. Fleischner guidelines were followed.
[2022-10-21 19:55] VITALS: BP 193/83; PULSE 91; O2SAT 100
[2022-10-21 20:04] VITALS: BP 192/114; PULSE 105; RESP 18; TEMP 36.8; O2SAT 98; BMI 29.2
[2022-10-21 21:10] LABS: MANUAL DIFF FLAG NO
[2022-10-21 21:11] LABS: Basophils Percent Auto 0.8 % (0-2); Eosinophils Absolute Auto 0.1 X10*3/uL (0.0-0.4); Hematocrit 26.3 % (37.0-47.0); Hemoglobin 8.3 g/dl (12.0-16.0); Imm Gran Abs Auto 0.02 X10*3/uL (0.00-0.03); Imm Gran Pct Auto 0.5 % (0.0-0.4); Lymphocytes Absolute Auto 0.5 X10*3/uL (1.2-4.9); Lymphocytes Percent Auto 12.2 % (20-40); Mean Corpuscular HGB Conc 31.6 g/dl (31.0-35.0); Mean Corpuscular Hemoglobin 29.3 pg (27.0-33.0); Mean Corpuscular Volume 92.9 fL (80.0-98.0); Monocytes Absolute Auto 0.3 X10*3/uL (0.1-1.2); Monocytes Percent Auto 7.3 % (2-11); NRBC Pct Auto 0.5 /100WBC (0.0-0.2); Neutrophils Percent Auto 76.2 % (45-73); Platelet Count 165 X10*3/uL (160-400); Red Blood Count 2.83 X10*6/uL (4.20-5.50); Red Cell Distribution Width 20.3 % (11.0-16.0)
--- NOTE | 2022-10-21 21:15 | ED_ITS ---
HPI - Abdominal Pain General Chief Complaint: Abdominal Pain Stated Complaint: NAUSEA ABD PAIN Time Seen by Provider: 10/21/22 21:03 Source: patient Limitations: no limitations History of Present Illness HPI narrative: 32-year-old female presents with upper abdominal pain, ulceration. Patient has a history of dialysis and diabetes. She last dialyzed approximately 2 weeks ago. Patient reports find home in the of a cousin being inhibitors for her obtaining dialysis. She denies any chest pain, shortness of breath, orthopnea, lower extremity edema. However, in the last week she has developed increasing upper abdominal pain. Pain is intermittent. It is sore. There is no clear relieving or exacerbating features. Patient describes the pain currently as a 9/10. The pain does not radiate. She does have a history of a cholecystectomy. She also had 1 episode of diarrhea today. Patient also complains of sore on her left foot. She reports purulent foul-smelling drainage. She denies any fevers or chills. Related Data Home Medications Medication Instructions Recorded Confirmed docusate sodium 100 mg capsule 100 mg PO DAILY PRN constipation 08/13/22 10/22/22 hydralazine 25 mg tablet 75 mg PO TID 08/25/22 10/22/22 carvedilol 12.5 mg tablet 12.5 mg PO BIDWM 10/22/22 10/22/22 Previous Rx's Medication Instructions Recorded aspirin 81 mg tablet,delayed 81 mg PO DAILY #90 tabs 08/20/22 release atorvastatin 40 mg tablet 40 mg PO BEDTIME #90 tabs 08/20/22 clopidogrel 75 mg tablet 75 mg PO DAILY #90 tabs 08/20/22 ferrous fumarate 324 mg (106 mg 324 mg PO DAILY #90 tabs 08/20/22 iron) tablet (Ferrocite) glipizide 2.5 mg tablet, extended 2.5 mg PO DAILY #90 tabs 08/20/22 release 24 hr losartan 25 mg tablet 25 mg PO DAILY #90 tabs 08/20/22 nifedipine 60 mg tablet,extended 60 mg PO DAILY #90 tabs 08/20/22 release 24 hr omeprazole 40 mg capsule,delayed 40 mg PO DAILY@0630 #90 caps 08/20/22 release torsemide 20 mg tablet 40 mg PO BID #180 tabs 08/20/22 metoclopramide HCl 5 mg tablet 5 mg PO TIDAC PRN (Drug) Ingestion 08/28/22 #90 tabs oxycodone 5 mg tablet 5 mg PO Q6H PRN severe pain #20 10/07/22 tabs ondansetron 4 mg disintegrating 4 mg PO Q8H PRN nausea and 10/22/22 tablet vomiting #10 tabs prochlorperazine 25 mg rectal 25 mg AK Q12H PRN nausea and 10/22/22 suppository (Compazine) vomiting #12 ea Allergies Allergy/AdvReac Type Severity Reaction Status Date / Time morphine [MORPHINE] Allergy Intermediate Itching Verified 09/10/22 19:39 azithromycin [From Zithromax] Allergy Hives Verified 09/10/22 19:39 gabapentin Allergy Facial Verified 09/10/22 19:39 Swelling tramadol Allergy Facial Verified 09/10/22 19:39 Swelling vancomycin Allergy Hives Verified 09/10/22 19:39 Review of Systems Review of Systems CONSTITUTIONAL: Denies weight loss, fever and chills. HEENT: Denies changes in vision and hearing. RESPIRATORY: Denies SOB and cough. CV: Denies palpitations no CP. GI: + abdominal pain, nausea, vomiting and diarrhea. : Denies dysuria and urinary frequency. MSK: Denies myalgia and joint pain. SKIN: Denies rash and pruritus. NEUROLOGICAL: Denies headache and syncope. PSYCHIATRIC: Denies recent changes in mood. Denies anxiety and depression. All other ROS are negative unless in HPI PMFSH Past Medical History Medical History Abnormal finding on echocardiogram Acute dyspnea Acute on chronic systolic and diastolic heart failure, NYHA class 3 Acute worsening of stage 3 chronic kidney disease MYNOR (acute kidney injury) Anemia Anemia in chronic kidney disease (CKD) Asthma Atypical chest pain Back pain Blind right eye Bone infection Cardiomyopathy Cellulitis Cellulitis and abscess of foot delivery delivered Chest pain CHF (congestive heart failure) (~06/07/22) CKD (chronic kidney disease) CKD (chronic kidney disease) CKD (chronic kidney disease) stage 4, GFR 15-29 ml/min Depression with anxiety Diabetes Diabetes Diabetic foot ulcer associated with type 2 diabetes mellitus Diabetic retinopathy DM foot ulcer Elevated troponin End stage chronic kidney disease ESRD needing dialysis Essential hypertension Fever Gastroparesis Generalized edema Headache, migraine HFrEF (heart failure with reduced ejection fraction) HTN (hypertension) Hypertension (~06/10/22) Hypertension Hypertensive emergency Metabolic acidosis Migraine Osteomyelitis PAD (peripheral artery disease) Pleural effusion test positive test positive Renal failure Sepsis Severe anemia Tachycardia Type 2 diabetes mellitus with hyperglycemia, with long-term current use of insulin Surgical History History of transmetatarsal amputation of foot S/P transmetatarsal amputation of foot Family History Family History Mother Coronary artery disease Myocardial infarction Stroke Diabetes mellitus Father Myocardial infarction Social History Social History Household Members: Significant Other and Family Household Members Other:: Sister, [id number], nephew Housing: Apartment Do you presently have visiting nurse or other home services: Yes (sister is [employer]) Alcohol intake: never Patient Tobacco Use Status: Never used Tobacco e-Cigarette/Vaping Use: Never Used Second Hand Smoke Exposure: No Advance Directives Date on File: 03/08/20 service: No Current occupational status: unemployed and disabled Gender identity: Female Physical Exam ED Vital Signs: Vital Signs - 24 hr 10/21/22 20:04 10/21/22 22:40 10/21/22 23:39 Temperature 98.3 F 98.2 F Pulse Rate 105 H 91 89 Respiratory Rate 18 18 20 Blood Pressure 192/114 H 176/122 H 184/108 H Pulse Oximetry 98 99 100 Oxygen Delivery Method Room Air Room Air Room Air 10/22/22 00:00 10/22/22 00:30 10/22/22 04:31 Temperature Pulse Rate Respiratory Rate 16 Blood Pressure 164/94 H 156/86 H Pulse Oximetry Oxygen Delivery Method 10/22/22 05:27 10/22/22 07:16 Temperature 98.0 F 98.0 F Pulse Rate 93 85 Respiratory Rate 17 16 Blood Pressure 184/118 H 152/87 H Pulse Oximetry 97 98 Oxygen Delivery Method Room Air Room Air BMI result Body Mass Index 29.2 GEN: Well developed, no acute distress, alert, oriented HEENT: Normocephalic, atraumatic, normal external ears, nose appears normal, no oropharyngeal edema or exudates Eyes: Normal to appearance Neck: Supple, no lymphadenopathy Respiratory: Talks in complete sentences, no respiratory distress, clear to auscultation bilaterally Cardiovascular: Regular rate and rhythm, no murmurs rubs or gallops Abdomen: Soft, generalized abdominal tenderness, no guarding, no rebound Back: No CVA tenderness Extremities: No clubbing cyanosis or edema Neurologic: No focal neurologic deficits, cranial nerves 2-12 intact, strength is 5/5 bilaterally Skin: No rash Course Reevaluation(s) Reevaluation #1: Patient labetalol. Blood pressure came down nicely. I was getting ready to order 2nd dose of medication however she does need that. At this point, I would consider giving her 1 of her oral medications to see if she can hold it down. Patient has a significant history of noncompliance and is requesting admission. However, there is no emergent requirement for her to be dialyzed. Her blood pressures come down nicely. She is no longer vomiting. At this point, I believe patient will likely be discharged however, I need to make sure she can hold down any fluids and medication. Time: 00:38 Reevaluation #2: 7.37 AM 10/22/2022 Signed out to me at [address] Palacio Pt continue to c/o nausea and vomiting labs showed non anion gap metabolic acidosis C02 15,BP is elevated . Case d/w renal Dr Pimentel it is reasonable to admit the pt for dyalisis her symptoms (nausea/vomiyting) most likely due to uremia. Spoke with Mariano Ramirez who accept the pt Time: 07:41 Medical Decision Making Medical Decision Making MDM Narrative: Patient presents with multiple complaints. First of all, patient complains that she has not been dialyzed for 2 weeks. The 2nd complaint patient has upper abdominal pain. She does have tenderness on examination. She has no rebound or guarding. There is no definite ascites. Will obtain a CT scan the abdomen pelvis to rule out multiple differential diagnoses including pancreatitis, colitis, diverticulitis, mesenteric adenitis, gastroenteritis, etc.. Meantime, will provide patient with analgesia, antiemetics, H2 blockers. Will withhold fluids for the time being as she is a dialysis patient has not gone to dialysis in 2 weeks. Patient is also complaining of a foot ulcer on the left foot. Will obtain x- ray, CRP and ESR to rule out cellulitis, osteomyelitis. Differential Diagnosis Differential Diagnoses: The differential diagnosis associated with the presentation includes (See above) Lab Data MDM Lab Attestation statement: I reviewed the patient's lab results. 10/21/22 21:06 10/21/22 21:06 Labs: Lab Results 10/21/22 10/21/22 10/21/22 Range/Units 21:06 21:06 21:06 WBC 4.0 L (4.8-10.8) X10*3/uL RBC 2.83 L (4.20-5.50) X10*6/uL Hgb 8.3 L (12.0-16.0) g/dl Hct 26.3 L (37.0-47.0) % MCV 92.9 (80.0-98.0) fL MCH 29.3 (27.0-33.0) pg MCHC 31.6 (31.0-35.0) g/dl RDW 20.3 H (11.0-16.0) % Plt Count 165 (160-400) X10*3/uL MPV 10.0 (9.4-12.3) fL Immature Gran % (Auto) 0.5 H (0.0-0.4) % Neut % (Auto) 76.2 H (45-73) % Lymph % (Auto) 12.2 L (20-40) % Gaines % (Auto) 7.3 (2-11) % Eos % (Auto) 3.0 (0-4) % Baso % (Auto) 0.8 (0-2) % Lymph # (Auto) 0.5 L (1.2-4.9) X10*3/uL Gaines # (Auto) 0.3 (0.1-1.2) X10*3/uL Eos # (Auto) 0.1 (0.0-0.4) X10*3/uL Baso # (Auto) 0.0 (0.0-0.2) X10*3/uL Abs Immat Gran (auto) 0.02 (0.00-0.03) X10*3/uL Absolute Neuts (auto) 3.0 (2.0-8.3) x10*3/uL Absolute Nucleated RBC 0.020 H (0.0-0.012) X10*3/uL Nucleated RBC % (auto) 0.5 H (0.0-0.2) /100WBC ESR 44 H (0-20) MM/HR Sodium 136 (135-145) mmol/L Potassium 4.3 (3.3-5.1) mmol/L Chloride 114 H (96-108) mmol/L Carbon Dioxide 15 L (22-29) mmol/L Anion Gap 11 L (12-20) BUN 62 H (9-16) mg/dL Creatinine 4.15 H* (0.5-1.4) mg/dL Estim Creat Clear Calc 20.6 Estimated GFR 12 Random Glucose 139 H (60-115) mg/dL Calcium 8.2 L (8.4-10.2) mg/dL Total Bilirubin 1.1 H (0.0-1.0) mg/dL AST 17 (5-31) U/L ALT 11 (0-31) U/L Alkaline Phosphatase 105 (39-117) U/L C-Reactive Protein 0.18 (< or = 0.50) mg/dL Total Protein 6.8 (6.5-8.0) g/dL Albumin 3.3 L (3.5-5.0) g/dL Lipase 28 (8-78) U/L Urine Color Urine Appearance Urine pH (5.0-9.0) Ur Specific [place] (1.005-1.025) Urine Protein (Neg-Trace) mg/dL Urine Glucose (UA) (Negative) mg/dL Urine Ketones (Negative) mg/dL Urine Blood (Negative) Urine Nitrite (Negative) Ur Leukocyte Esterase (Negative) Urine RBC (0-2) /HPF Urine WBC (0-5) /HPF Ur Squamous Epith Cells (0-2) /HPF Urine Bacteria (None Seen) Hyaline Casts (0-2) /LPF 10/22/22 Range/Units 04:28 WBC (4.8-10.8) X10*3/uL RBC (4.20-5.50) X10*6/uL Hgb (12.0-16.0) g/dl Hct (37.0-47.0) % MCV (80.0-98.0) fL MCH (27.0-33.0) pg MCHC (31.0-35.0) g/dl RDW (11.0-16.0) % Plt Count (160-400) X10*3/uL MPV (9.4-12.3) fL Immature Gran % (Auto) (0.0-0.4) % Neut % (Auto) (45-73) % Lymph % (Auto) (20-40) % Gaines % (Auto) (2-11) % Eos % (Auto) (0-4) % Baso % (Auto) (0-2) % Lymph # (Auto) (1.2-4.9) X10*3/uL Gaines # (Auto) (0.1-1.2) X10*3/uL Eos # (Auto) (0.0-0.4) X10*3/uL Baso # (Auto) (0.0-0.2) X10*3/uL Abs Immat Gran (auto) (0.00-0.03) X10*3/uL Absolute Neuts (auto) (2.0-8.3) x10*3/uL Absolute Nucleated RBC (0.0-0.012) X10*3/uL Nucleated RBC % (auto) (0.0-0.2) /100WBC ESR (0-20) MM/HR Sodium (135-145) mmol/L Potassium (3.3-5.1) mmol/L Chloride (96-108) mmol/L Carbon Dioxide (22-29) mmol/L Anion Gap (12-20) BUN (9-16) mg/dL Creatinine (0.5-1.4) mg/dL Estim Creat Clear Calc Estimated GFR Random Glucose (60-115) mg/dL Calcium (8.4-10.2) mg/dL Total Bilirubin (0.0-1.0) mg/dL AST (5-31) U/L ALT (0-31) U/L Alkaline Phosphatase (39-117) U/L C-Reactive Protein (< or = 0.50) mg/dL Total Protein (6.5-8.0) g/dL Albumin (3.5-5.0) g/dL Lipase (8-78) U/L Urine Color Yellow Urine Appearance Cloudy Urine pH 5.5 (5.0-9.0) Ur Specific [place] 1.015 (1.005-1.025) Urine Protein >=1000 (4+) H (Neg-Trace) mg/dL Urine Glucose (UA) 250 H (Negative) mg/dL Urine Ketones Negative (Negative) mg/dL Urine Blood Negative (Negative) Urine Nitrite Negative (Negative) Ur Leukocyte Esterase Negative (Negative) Urine RBC 0-2 (0-2) /HPF Urine WBC 0-5 (0-5) /HPF Ur Squamous Epith Cells 6-10 (0-2) /HPF Urine Bacteria 3+ (None Seen) Hyaline Casts 11-20 (0-2) /LPF Independent Interpretation I performed an independent interpretation of an: EKG (Normal sinus rhythm, heart rate 99, right bundle-branch block, new acute ST elevations or depressions no significant changes from October 04, 2022), Plain X-Ray and CT Scan (Abd: NAD) Radiology Impression Discussion of test interpretation with radiology: I have reviewed the radiologist's reading. Radiologist Impression: CT/CT abdomen pelvis wo IV con IMPRESSION: 1.? No acute findings. 2.? Stable generalized lymphadenopathy as above. 3.? Stable right-sided pleural effusion. ? Fleischner guidelines were followed. Dictated By: Keshawn Noble MD Signed By: <Electronically signed by Keshawn Noble MD in [place]> 10/21/222209 Prescription Management I considered prescription management with: Pain Medication and Antibiotic Chronic Conditions Patient?s care impacted by: Diabetes Social Determinants Patient?s care significantly limited by Social Determinants of Health including: Inadequate housing Medications Administered Generic Name Dose Route Start Last Admin Trade Name Momoq PRN Reason Stop Dose Admin Aspirin 81 mg 10/23/22 09:00 10/23/22 08:32 Aspirin Enteric Coated 81 Mg Tablet.Dr PO Not Given DAILY [facility] Atorvastatin Calcium 40 mg 10/22/22 21:00 10/22/22 20:54 Atorvastatin Calcium 40 Mg Tablet PO Not Given BEDTIME [facility] Carvedilol 12.5 mg 10/22/22 17:00 10/23/22 16:44 Carvedilol 12.5 Mg Tablet PO Not Given BIDWM [facility] Protocol Clopidogrel Bisulfate 75 mg 10/23/22 09:00 10/23/22 08:32 Clopidogrel Bisulfate 75 Mg Tablet PO Not Given DAILY [facility] Ferrous Sulfate 324 mg 10/23/22 09:00 10/23/22 08:32 Ferrous Sulfate 324 Mg Tablet. PO Not Given DAILY [facility] Heparin Sodium (Porcine) 5,000 unit 10/22/22 08:00 10/23/22 08:31 Heparin Sodium,Porcine 5,000 Unit/Ml Vial SUBCUT Not Given Q12H [facility] Hydralazine HCl 75 mg 10/22/22 15:00 10/23/22 14:20 Hydralazine Hcl 25 Mg Tablet PO 75 mg TID [facility] Administration Protocol Hydromorphone HCl 0.5 mg 10/23/22 13:43 10/23/22 14:20 Hydromorphone Hcl 0.5 Mg/0.5 Ml Syringe IVPUSH 0.5 mg Q4H PRN Administration Pain, Mild (Pain Scale 1-3) Protocol Insulin Human Lispro 0 unit 10/22/22 11:30 10/23/22 16:15 Insulin Lispro 100 Unit/Ml 3 Ml Vial SUBCUT Not Given QIDACHS [facility] Protocol Losartan Potassium 25 mg 10/23/22 09:00 10/23/22 12:14 Losartan Potassium 25 Mg Tablet PO 25 mg DAILY [facility] Administration Protocol Metoclopramide HCl 5 mg 10/22/22 13:00 10/22/22 17:10 Metoclopramide Hcl 5 Mg Tablet PO 5 mg TIDAC PRN Administration (Drug) Ingestion Nifedipine 60 mg 10/23/22 09:00 10/23/22 12:14 Nifedipine Er 60 Mg Tab.Er.24 PO 60 mg DAILY [facility] Administration Protocol Omeprazole 40 mg 10/23/22 06:30 10/23/22 06:11 Omeprazole 40 Mg Capsule.Dr PO Not Given DAILY@0630 [facility] Ondansetron HCl 4 mg 10/22/22 07:50 10/23/22 14:20 Ondansetron Hcl 4 Mg/2 Ml Vial IVPUSH 4 mg Q8H PRN Administration Nausea and Vomiting Oxycodone HCl 5 mg 10/22/22 13:00 10/23/22 12:03 Oxycodone Hcl Immed Release 5 Mg Tablet PO 5 mg Q6H PRN Administration severe pain Sodium Chloride 3 ml 10/22/22 08:00 10/23/22 14:21 0.9 % Sodium Chloride Flush 3 Ml Syringe IVFLUSH 3 ml QSHIFT [facility] Administration Torsemide 40 mg 10/22/22 21:00 10/23/22 08:32 Torsemide 20 Mg Tablet PO Not Given BID [facility] Protocol Discontinued Medications Generic Name Dose Route Start Last Admin Trade Name Brandon WATKINS Reason Stop Dose Admin Carvedilol 12.5 mg 10/22/22 06:15 10/22/22 06:43 Carvedilol 12.5 Mg Tablet PO 10/22/22 06:16 12.5 mg ONCE ONE Administration Protocol Clonidine HCl 0.1 mg 10/22/22 06:15 10/22/22 06:42 Clonidine Hcl 0.1 Mg Tablet PO 10/22/22 06:16 0.1 mg ONCE ONE Administration Protocol Famotidine 20 mg 10/21/22 21:10 10/21/22 21:37 Famotidine/Pf 20 Mg/2 Ml Vial IVPUSH 10/21/22 21:11 20 mg ONCE ONE Administration Hydralazine HCl 75 mg 10/22/22 06:15 10/22/22 06:42 Hydralazine Hcl 50 Mg Tablet PO 10/22/22 06:16 75 mg ONCE ONE Administration Protocol Hydromorphone HCl 0.5 mg 10/21/22 21:14 10/21/22 21:37 Hydromorphone Hcl 0.5 Mg/0.5 Ml Syringe IVPUSH 10/21/22 21:15 0.5 mg ONCE ONE Administration Protocol Hydromorphone HCl 0.5 mg 10/21/22 22:47 10/21/22 23:46 Hydromorphone Hcl 0.5 Mg/0.5 Ml Syringe IVPUSH 10/21/22 22:48 0.5 mg ONCE ONE Administration Protocol Promethazine HCl 12.5 mg/ 50.5 mls @ 202 mls/hr 10/21/22 22:47 10/21/22 23:44 Sodium Chloride IV 10/21/22 22:48 Not Given ONCE ONE Promethazine HCl 6.25 mg/ 50.25 mls @ 201 mls/hr 10/22/22 17:06 10/22/22 17:19 Sodium Chloride IV 10/22/22 17:07 Not Given ONCE ONE Ketorolac Tromethamine 30 mg 10/22/22 20:57 10/22/22 22:09 Ketorolac Tromethamine 30 Mg/Ml Vial IVPUSH 10/22/22 20:58 30 mg ONCE ONE Administration Labetalol HCl 10 mg 10/21/22 22:53 10/21/22 23:40 Labetalol Hcl 100 Mg/20 Ml Vial IVPUSH 10/21/22 22:54 10 mg ONCE ONE Administration Labetalol HCl 10 mg 10/22/22 00:10 10/22/22 00:41 Labetalol Hcl 100 Mg/20 Ml Vial IVPUSH 10/22/22 00:11 Not Given ONCE ONE Losartan Potassium 25 mg 10/22/22 00:38 10/22/22 00:44 Losartan Potassium 25 Mg Tablet PO 10/22/22 00:39 25 mg ONCE ONE Administration Protocol Metoclopramide HCl 10 mg 10/22/22 02:02 10/22/22 02:13 Metoclopramide Hcl 10 Mg/2 Ml Vial IVPUSH 10/22/22 02:03 10 mg ONCE ONE Administration Ondansetron HCl 4 mg 10/21/22 21:10 10/21/22 21:37 Ondansetron Hcl 4 Mg/2 Ml Vial IVPUSH 10/21/22 21:11 4 mg ONCE ONE Administration Critical Care Time Critical Care Time Critical Care Time: Yes Total Critical Care Time: 75 Attestation: Due to a high probability of clinically significant, life threatening deterioration, the patient required my highest level of preparedness to intervene emergently and I personally spent this critical care time directly and personally managing the patient. This critical care time included obtaining a history; examining the patient; pulse oximetry; ordering and review of studies; arranging urgent treatment with development of a management plan; evaluation of patient's response to treatment; frequent reassessment; and, discussions with other providers. This critical care time was performed to assess and manage the high probability of imminent, life-threatening deterioration that could result in multi-organ failure. It was exclusive of separately billable procedures and treating other patients and teaching time. Discharge Plan Discharge Clinical Impression: End-stage renal disease (ESRD), Hypertension, Nausea & vomiting, Metabolic acidosis Patient Disposition: Admitted As Inpatient Interventions: Admission Worksheet (ED) Last Done: 10/22/22 18:49 Discharge Date/Time: 10/22/22 18:49
--- NOTE | 2022-10-21 21:20 | ECG_ITS ---
Test Reason : tachycardia Blood Pressure : / mmHG Vent. Rate : 099 BPM Atrial Rate : 099 BPM P-R Int : 160 ms QRS Dur : 140 ms QT Int : 414 ms P-R-T Axes : 059 -10 064 degrees QTc Int : 531 ms Normal sinus rhythm Possible Left atrial enlargement Right bundle branch block Abnormal ECG When compared with ECG of 04-OCT-2022 17:19, T wave inversion now evident in Anterior leads Heart rate has increased Referred By: Angelito Palacio Electronically Signed By:JULIÁN CANCINO
[2022-10-21] MEDS: Famotidine/PF 20 MG/2 ML VIAL IVPUSH (21:37)
[2022-10-21] MEDS: HYDROmorphone HCl 0.5 MG/0.5 ML SYRINGE IVPUSH ×2 (21:37→23:46)
[2022-10-21] MEDS: ondansetron HCL 4 MG/2 ML VIAL IVPUSH (21:37)
[2022-10-21 21:45] LABS: Alanine Aminotransferase 11 U/L (0-31); Albumin Level 3.3 g/dL (3.5-5.0); Alkaline Phosphatase 105 U/L (39-117); Anion Gap 11 (12-20); Aspartate Amino Transferase 17 U/L (5-31); Bilirubin Total 1.1 mg/dL (0.0-1.0); Blood Urea Nitrogen 62 mg/dL (9-16); C Reactive Protein 0.18 mg/dL (< or = 0.50); Calcium 8.2 mg/dL (8.4-10.2); Carbon Dioxide 15 mmol/L (22-29); Chloride 114 mmol/L (96-108); Creatinine Clr Calc Pharmacy 20.6; Estimated Glomerular Filt Rate 12; Glucose Random 139 mg/dL (60-115); Lipase 28 U/L (8-78); Potassium 4.3 mmol/L (3.3-5.1); Sodium 136 mmol/L (135-145); Total Protein 6.8 g/dL (6.5-8.0)
--- NOTE | 2022-10-21 21:48 | MHC.EDTECH ---
Pt is aware we need to obtain urine sample. Commode is in the room patient is aware and will ring moore when ready to be assisted to commode.Sg
--- NOTE | 2022-10-21 21:53 | PC.NURSE ---
pt a&ox4, hypertensive, tachycardic, other vss, reporting 9/10 abd pain x 2 weeks with nausea, poor PO intake, unable to tolerate PO medication, pt reports increased life stressors r/t unstable housing and recent of family member. 20G IV placed left AC, labs drawn, medicated per MAR. tech at bedside for EKG, pt acknowledged need for urine sample. no new orders at this time.
[2022-10-21 22:00] LABS: Erythrocyte Sedimentation Rate 44 MM/HR (0-20)
[2022-10-21 22:40] VITALS: BP 176/122; PULSE 91; RESP 18; TEMP 36.8; O2SAT 99
[2022-10-21 23:39] VITALS: BP 184/108; PULSE 89; RESP 20; O2SAT 100
[2022-10-21] MEDS: Labetalol HCL 100 MG/20 ML VIAL 10 MG IVPUSH (23:40)
[2022-10-22] VITALS (10 sets, daily range): BP systolic 129–196; BP diastolic 74–118; PULSE 77–93; RESP 12–20; TEMP 36.4–36.7; O2SAT 96–99
[2022-10-22] MEDS: Losartan Potassium 25 MG TABLET PO (00:44)
[2022-10-22] MEDS: Metoclopramide HCl 10 MG/2 ML VIAL IVPUSH (02:13)
[2022-10-22 04:40] LABS: Color Urine Yellow
[2022-10-22 04:41] LABS: Appearance Urine Cloudy; Glucose Urine UA 250 mg/dL (Negative); Leukocyte Esterase Urine Negative (Negative); Nitrite Urine Negative (Negative); PH 5.5 (5.0-9.0); Specific Gravity - Urine 1.015 (1.005-1.025); UMIC TRIGGER UACC YES; Urine Blood Negative (Negative); Urine Ketones Negative (Negative); Urine Protein >=1000 (4+) mg/dL (Neg-Trace)
[2022-10-22 04:52] LABS: Bacteria Urine 3+ (None Seen); RBC Urine 0-2 /HPF (0-2); WBC Urine 0-5 /HPF (0-5)
[2022-10-22 04:56] LABS: UACC Culture Trigger YES
[2022-10-22] MEDS: cloNIDine HCL 0.1 MG TABLET PO (06:42)
[2022-10-22] MEDS: hydrALAZINE HCl 50 MG TABLET 75 MG PO (06:42)
[2022-10-22] MEDS: carvediloL 12.5 MG TABLET PO ×2 (06:43→17:09)
--- NOTE | 2022-10-22 07:54 | P.HPHOSP_ITS ---
the patient was seen and evaluated with JOVON Cevallos. I agree with her note, assessment and plan with the following. In summary, 32 years old lady w PMH of ESRD, CAD, CHF , DMI among others who presents with N\V and abd pain after missing many dialysis sessions. Nausea and vomiting related to uremia and gastroparesis possibly r/t uremia from missing HD vs gastroparesis diabetic gastroparesis HD planned for today Rest of evaluations by PA note. History of Present Illness Date of Service: 10/22/22 Attending physician on admission: Cheyenne Sears Chief Complaint: Nausea and vomiting; generalized pain [facility] Medical History Abnormal finding on echocardiogram Acute dyspnea Acute on chronic systolic and diastolic heart failure, NYHA class 3 Acute worsening of stage 3 chronic kidney disease MYNOR (acute kidney injury) Anemia Anemia in chronic kidney disease (CKD) Asthma Atypical chest pain Back pain Blind right eye Bone infection Cardiomyopathy Cellulitis Cellulitis and abscess of foot delivery delivered Chest pain CHF (congestive heart failure) (~06/07/22) CKD (chronic kidney disease) CKD (chronic kidney disease) CKD (chronic kidney disease) stage 4, GFR 15-29 ml/min Depression with anxiety Diabetes Diabetes Diabetic foot ulcer associated with type 2 diabetes mellitus Diabetic retinopathy DM foot ulcer Elevated troponin End stage chronic kidney disease ESRD needing dialysis Essential hypertension Fever Gastroparesis Generalized edema Headache, migraine HFrEF (heart failure with reduced ejection fraction) HTN (hypertension) Hypertension (~06/10/22) Hypertension Hypertensive emergency Metabolic acidosis Migraine Osteomyelitis PAD (peripheral artery disease) Pleural effusion test positive test positive Renal failure Sepsis Severe anemia Tachycardia Type 2 diabetes mellitus with hyperglycemia, with long-term current use of insulin Family History Mother Coronary artery disease Myocardial infarction Stroke Diabetes mellitus Father Myocardial infarction Surgical History History of transmetatarsal amputation of foot S/P transmetatarsal amputation of foot Social History Household Members: Significant Other and Family Household Members Other:: Sister, [id number], nephew Housing: Apartment Do you presently have visiting nurse or other home services: Yes (sister is BASIN FINISH OPERATOR TIG WELDER) Alcohol intake: never Patient Tobacco Use Status: Never used Tobacco Smoked in Last 30 Days: No e-Cigarette/Vaping Use: Never Used Second Hand Smoke Exposure: No Advance Directives: Yes Advance Directives on File: Yes Advance Directives Date on File: 03/08/20 Nutrition Risks: No Nutritional Risk service: No Current occupational status: unemployed and disabled Gender identity: Female Meds Allergies Allergy/AdvReac Type Severity Reaction Status Date / Time morphine [MORPHINE] Allergy Intermediate Itching Verified 09/10/22 19:39 azithromycin [From Zithromax] Allergy Hives Verified 09/10/22 19:39 gabapentin Allergy Facial Verified 09/10/22 19:39 Swelling tramadol Allergy Facial Verified 09/10/22 19:39 Swelling vancomycin Allergy Hives Verified 09/10/22 19:39 Home Medications Medication Instructions Recorded Confirmed Last Taken Type docusate sodium 100 mg capsule 100 mg PO DAILY PRN constipation 08/13/22 10/22/22 Unknown History hydralazine 25 mg tablet 75 mg PO TID 08/25/22 10/22/22 08/24/22 History carvedilol 12.5 mg tablet 12.5 mg PO BIDWM 10/22/22 10/22/22 Unknown History Physical Exam Vital Signs and Narrative: Vital Signs: Last Vital Signs Temp 98.0 F 10/22/22 07:16 Pulse 85 10/22/22 07:16 Resp 16 10/22/22 07:16 BP 152/87 H 10/22/22 07:16 Pulse Ox 98 10/22/22 07:16 O2 Del Method Room Air 10/22/22 07:16 BMI result Body Mass Index 29.2 Const: General: comfortable, no acute distress, alert and awake Eyes: Other: blind right eye Chest: Other: permcath present right chest wall, no erythema Resp: Effort & Inspection: normal respiratory effort, able to speak in complete sentences, no respiratory distress and no use of accessory muscles GI: Inspection: No distended Palpation (GI): Soft to palpation Neuro: General: moves all extremities Extrem: Other: s/p right transmetatarsal amputation Results Labs 10/21/22 21:06 10/21/22 21:06 Labs: Laboratory Results - last 24 hr 10/21/22 10/21/22 10/21/22 21:06 21:06 21:06 MCV 92.9 MCH 29.3 MCHC 31.6 RDW 20.3 H Plt Count 165 MPV 10.0 Immature Gran % (Auto) 0.5 H Neut % (Auto) 76.2 H Lymph % (Auto) 12.2 L Emanuel % (Auto) 7.3 Eos % (Auto) 3.0 Baso % (Auto) 0.8 Lymph # (Auto) 0.5 L Emanuel # (Auto) 0.3 Eos # (Auto) 0.1 Baso # (Auto) 0.0 Abs Immat Gran (auto) 0.02 Absolute Neuts (auto) 3.0 Absolute Nucleated RBC 0.020 H Nucleated RBC % (auto) 0.5 H ESR 44 H Anion Gap 11 L Estim Creat Clear Calc 20.6 Estimated GFR 12 Random Glucose 139 H Calcium 8.2 L Total Bilirubin 1.1 H AST 17 ALT 11 Alkaline Phosphatase 105 C-Reactive Protein 0.18 Total Protein 6.8 Albumin 3.3 L Lipase 28 Urine Color Urine Appearance Urine pH Ur Specific [place] Urine Protein Urine Glucose (UA) Urine Ketones Urine Blood Urine Nitrite Ur Leukocyte Esterase Urine RBC Urine WBC Ur Squamous Epith Cells Urine Bacteria Hyaline Casts 10/22/22 04:28 MCV MCH MCHC RDW Plt Count MPV Immature Gran % (Auto) Neut % (Auto) Lymph % (Auto) Emanuel % (Auto) Eos % (Auto) Baso % (Auto) Lymph # (Auto) Emanuel # (Auto) Eos # (Auto) Baso # (Auto) Abs Immat Gran (auto) Absolute Neuts (auto) Absolute Nucleated RBC Nucleated RBC % (auto) ESR Anion Gap Estim Creat Clear Calc Estimated GFR Random Glucose Calcium Total Bilirubin AST ALT Alkaline Phosphatase C-Reactive Protein Total Protein Albumin Lipase Urine Color Yellow Urine Appearance Cloudy Urine pH 5.5 Ur Specific [place] 1.015 Urine Protein >=1000 (4+) H Urine Glucose (UA) 250 H Urine Ketones Negative Urine Blood Negative Urine Nitrite Negative Ur Leukocyte Esterase Negative Urine RBC 0-2 Urine WBC 0-5 Ur Squamous Epith Cells 6-10 Urine Bacteria 3+ Hyaline Casts 11-20 Imaging Radiologist's Impressions: Impressions Chest X-Ray 10/21/22 21:23 IMPRESSION: 1. Small amount of pleural fluid tracking within the right minor fissure. 2. Stable enlargement of the cardiomediastinal silhouette. Foot X-Ray 10/21/22 21:23 IMPRESSION: Soft tissue swelling and ulceration as above. No evidence for osteomyelitis. Abdomen/Pelvis CT 10/21/22 21:35 IMPRESSION: 1. No acute findings. 2. Stable generalized lymphadenopathy as above. 3. Stable right-sided pleural effusion. Fleischner guidelines were followed. Assessment and Plan (1) End-stage renal disease (ESRD): Status: Acute (2) Hypertension: Status: Acute (3) Nausea & vomiting: Status: Acute Plan This is a 32-year-old female with extensive past medical history including CAD, ESRD on dialysis, CHF with reduced ejection fraction comes into the hospital with complaints of nausea vomiting abdominal pain found to have uncontrolled blood pressure and has missed past several dialysis sessions N/V possibly r/t uremia from missing HD vs gastroparesis diabetic gastroparesis symptomatic treatment, and HD planned for today ESRD metabolic acidosis Missed last several sessions of dialysis Plan for dialysis today nephrology following hypertension Secondary to missing dialysis Received multiple medications in the ED Resume home medications CAD continue aspirin, carvedilol, Plavix DM hold glipizide SSI, POCs, ada diet history of GERD continue PPI chronic congestive heart failure with reduced ejection fraction No acute exacerbation, no hypoxia Continue beta-mohamud, torsemide and ARB Chronic normocytic anemia stable continue iron supplementation DVT prophylaxis:? Heparin subQ attending - dr. botello Due to missing dialysis and uncontrolled hypertension requiring IV medication patient will likely require 2 midnight stay in the hospital for management of hypertensive urgency and nausea and vomiting secondary to uremia Time Spent With Patient Time: Total time managing care of this patient today ____ minutes. Quality Stroke Does the patient have a stroke diagnosis?: No VTE Prior VTE?: No VTE Risk Level:: Medical - moderate - high VTE Device Contraindication: N/A - Device Ordered VTE Drug Contraindication: N/A - Med Ordered
--- NOTE | 2022-10-22 08:08 | PHA.MEDREC ---
Pharmacy Consult ? Medication Reconciliation Pharmacy has completed the medication reconciliation. Spoke to patient to confirm meds. Patient did not want engage in conversation. However, patient did confirm that there are no meds changes outside of when she was recently discharged on 10/07/22. Does not know when last time she took her meds.
[2022-10-22] MEDS: Heparin Sodium,Porcine 5,000 UNIT/ML VIAL 5000 UNIT SUBCUT (08:36)
[2022-10-22] MEDS: 0.9 % Sodium Chloride Flush 3 ML SYRINGE IVFLUSH ×3 (08:36→22:12)
--- NOTE | 2022-10-22 08:37 | PC.NURSE ---
pt sleeping, wakes to verbal stimulus, pt notified she will eventually get to dialysis and is being admitted, pt medicated per order, call moore within reach, will continue to monitor
--- NOTE | 2022-10-22 09:54 | PC.NURSE ---
pt a&ox3, vss, awake overnight monitor applied - displaying nsr. pt verbalizing 10/10 generalized pain jonny. pt currently waiting for bed placement. call moore placed within reach.
--- NOTE | 2022-10-22 11:01 | PC.NURSE ---
pt transferred to dialysis.
--- NOTE | 2022-10-22 11:10 | PC.NURSE ---
pt to dialysis
--- NOTE | 2022-10-22 12:02 | P.CONNP_ITS ---
History of Present Illness Reason for Consult Consult date: 10/24/22 Reason for consult: ESRD Chief Complaint Chief complaint: fluid overload History of Present Illness Narrative: 32-year-old female presents with upper abdominal pain, ulceration.? Patient has a history of dialysis and diabetes.? She last dialyzed approximately 2 weeks ago.? Patient reports find home in the of a cousin being inhibitors for her obtaining dialysis.? She denies any chest pain, shortness of breath, orthopnea, lower extremity edema.? However, in the last week she has developed increasing upper abdominal pain.? Pain is intermittent. She has missed several dialysis treatments and consult a corset for initiation of hemodialysis Review of Systems Review of Systems No headache. No nausea vomiting. No abdominal pain. No shortness of breath. No cough. No dysuria urgency or hematuria. No edema. No rash. PMFSH Past Medical History Medical History Abnormal finding on echocardiogram Acute dyspnea Acute on chronic systolic and diastolic heart failure, NYHA class 3 Acute worsening of stage 3 chronic kidney disease MYNOR (acute kidney injury) Anemia Anemia in chronic kidney disease (CKD) Asthma Atypical chest pain Back pain Blind right eye Bone infection Cardiomyopathy Cellulitis Cellulitis and abscess of foot delivery delivered Chest pain CHF (congestive heart failure) (~06/07/22) CKD (chronic kidney disease) CKD (chronic kidney disease) CKD (chronic kidney disease) stage 4, GFR 15-29 ml/min Depression with anxiety Diabetes Diabetes Diabetic foot ulcer associated with type 2 diabetes mellitus Diabetic retinopathy DM foot ulcer Elevated troponin End stage chronic kidney disease ESRD needing dialysis Essential hypertension Fever Gastroparesis Generalized edema Headache, migraine HFrEF (heart failure with reduced ejection fraction) HTN (hypertension) Hypertension (~06/10/22) Hypertension Hypertensive emergency Metabolic acidosis Migraine Osteomyelitis PAD (peripheral artery disease) Pleural effusion test positive test positive Renal failure Sepsis Severe anemia Tachycardia Type 2 diabetes mellitus with hyperglycemia, with long-term current use of insulin Family History Family History Mother Coronary artery disease Myocardial infarction Stroke Diabetes mellitus Father Myocardial infarction Surgical History Surgical History History of transmetatarsal amputation of foot S/P transmetatarsal amputation of foot Social History Social History Household Members: Significant Other and Family Household Members Other:: Sister, [id number], nephew Housing: Apartment Do you presently have visiting nurse or other home services: Yes (sister is ELECTRIC SWITCH TESTER) Alcohol intake: never Patient Tobacco Use Status: Never used Tobacco e-Cigarette/Vaping Use: Never Used Second Hand Smoke Exposure: No Advance Directives Date on File: 03/08/20 service: No Current occupational status: unemployed and disabled Gender identity: Female Meds Allergies Allergy/AdvReac Type Severity Reaction Status Date / Time morphine [MORPHINE] Allergy Intermediate Itching Verified 09/10/22 19:39 azithromycin [From Zithromax] Allergy Hives Verified 09/10/22 19:39 gabapentin Allergy Facial Verified 09/10/22 19:39 Swelling tramadol Allergy Facial Verified 09/10/22 19:39 Swelling vancomycin Allergy Hives Verified 09/10/22 19:39 Active Medications: Current Medications Acetaminophen (Acetaminophen 325 Mg Tablet) 650 mg PO Q6H PRN PRN Reason: Pain, Mild (Pain Scale 1-3) Dextrose (Dextrose 50 % 25 Gm/50 Ml Syringe) 25 gm IVPUSH Q15M PRN; Protocol PRN Reason: per Hypoglycemia Standing Ord. Glucose (Glucose Gel 15 Gm Gel..Gram.) 15 gm PO Q15M PRN; Protocol PRN Reason: per Hypoglycemia Standing Ord. Heparin Sodium (Porcine) (Heparin Sodium,Porcine 5,000 Unit/Ml Vial) 5,000 unit SUBCUT Q12H [facility] Last Admin: 10/22/22 08:36 Dose: 5,000 unit Insulin Human Lispro (Insulin Lispro 100 Unit/Ml 3 Ml Vial) 0 unit SUBCUT QIDACHS [facility]; Protocol Ondansetron HCl (Ondansetron Hcl 4 Mg/2 Ml Vial) 4 mg IVPUSH Q8H PRN PRN Reason: Nausea and Vomiting Sodium Chloride (0.9 % Sodium Chloride Flush 3 Ml Syringe) [address] [facility] Last Admin: 10/22/22 08:36 Dose: 3 ml Home Medications Medication Instructions Recorded Confirmed Last Taken Type docusate sodium 100 mg capsule 100 mg PO DAILY PRN constipation 08/13/22 10/22/22 Unknown History hydralazine 25 mg tablet 75 mg PO TID 06/10/22/22 08/24/22 History carvedilol 12.5 mg tablet 12.5 mg PO BIDWM 10/22/22 10/22/22 Unknown History Physical Exam Vital Signs: Last Vital Signs Temp 97.7 F 10/22/22 07:50 Pulse 77 10/22/22 07:50 Resp 16 10/22/22 07:50 BP 129/74 10/22/22 07:50 Pulse Ox 98 10/22/22 07:50 O2 Del Method Room Air 10/22/22 07:50 BMI result Body Mass Index 29.2 Blind Comfortable Neck is supple Lung: Air entry equal Heart: S1,S2, normal. No rub Abd: Soft. BS + NS : Alert.No asterexis Ext: + edema Results Lab Results 10/21/22 21:06 10/21/22 21:06 Lab results: Chemistry 10/21/22 21:06 Sodium 136 Potassium 4.3 Carbon Dioxide 15 L BUN 62 H Creatinine 4.15 H* Calcium 8.2 L Hematology 10/21/22 21:06 WBC 4.0 L Hgb 8.3 L Plt Count 165 Urinalysis 10/22/22 04:28 Urine Color Yellow Urine Appearance Cloudy Urine pH 5.5 Ur Specific [place] 1.015 Urine Protein >=1000 (4+) H Urine Glucose (UA) 250 H Urine Ketones Negative Urine Blood Negative Urine Nitrite Negative Ur Leukocyte Esterase Negative Urine RBC 0-2 Urine WBC 0-5 Ur Squamous Epith Cells 6-10 Hyaline Casts 11-20 Assessment and Plan (1) End-stage renal disease (ESRD): Status: Acute Plan 32-year-old woman with the severe started to drop nephropathy. She has been noncompliant with dialysis treatment. Plan Resume dialysis. We will dialyze again tomorrow and keep her schedule. Resume Epogen for anemia. Keep on low-sodium diet. Will follow along with the team. Thank you Time Spent With Patient Time: Total time managing care of this patient today ____ minutes. Procedures Date of Service Date of Service: 10/24/22
--- NOTE | 2022-10-22 14:42 | PC.NURSE ---
pt returned from dialysis, reporting increased nausea, POC 109, medicated per MAR.
[2022-10-22 14:43] LABS: Glucose, Whole Blood 109 mg/dL (60-115)
[2022-10-22] MEDS: ondansetron HCL 4 MG/2 ML VIAL IVPUSH (14:46)
[2022-10-22] MEDS: hydrALAZINE HCl 25 MG TABLET 75 MG PO (15:01)
[2022-10-22] MEDS: oxyCODONE HCl Immed Release 5 MG TABLET PO (15:02)
--- NOTE | 2022-10-22 15:05 | PC.NURSE ---
pt initially declining PO meds, educated on the importance of taking medication consistently for symptom improvement. pt took medications per APR.
--- NOTE | 2022-10-22 16:05 | MHC.CM.PN ---
Addendum entered by Yarely Moe 10/23/22 13:35: CM MET WITH PT WITH A MAIL HANDLER EQUIPMENT OPERATOR PT REPORTS SHE IS NOT CURRENTLY HOMELESS SHE SAYS HER SISTER WILL BE MOVING TO A NEW APARTMENT AND SHE IS TRYING TO FIND HOUSING BEFORE THEN SHE ALSO SAYS SHE DID NOT MISS HD BECAUSE OF HOUSING OR TRANSPORTATION, SHE SAYS SHE MISSED ONE WEEK BECAUSE HER COUSIN AND SHE MISSED A SECOND WEEK BECAUSE SHE WAS BUSY LOOKING FOR HOUSING. PT PROVIDED WITH FAMILY [employer] BOOKLET AND [employer] HANDOUT SHE PLANS TO HAVE HER SISTER HELP HER CONTACT AGENCIES LISTED SHE IS LEGALLY BLIND PT REPORTS SHE IS GOING TO RETURN TO HER SISTERS HOME AT [place] AND RESUME PER POLO COACH AND HD SERVICES SHE DOES REPORT CONCERNS THAT HER O2 CONCENTRATOR IS NOT WORKING PROPERLY CM WILL REACH OUT TO RT TO DETERMINE IF THIS IS SOMETHING CM OR RT CAN ASSIST WITH WHILE PT IS HERE PT REPORTS SHE WILL RESUME OUTPATIENT HD SCHEDULED, FAMILY WILL TRANSPORT Addendum entered by Yarely Moe 10/23/22 09:01: CM INFORMED BY RN THAT PT DISCLOSED TO HER THAT SHE HAS NOT BEEN ABLE TO STAY WITH HER SISTER AFTER SHE MOVED INTO A 3RD FLOOR APARTMENT. SUBSEQUENTLY, PT HAS NOT BEEN ATTENDING HD. PT DOES HAVE MEDICAL TRANSPORT AVAILABLE THROUGH HER INSURANCE, HOWEVER HAS PREVIOUSLY REFUSED TO USE IT. CM ATTEMPTED TO MEET WITH PT AGAIN THIS MORNING, SHE IS OFF UNIT CM WILL RETURN TO ADDRESS DC CONCERNS/PLANNING Original Note: PT LIVES WITH HER SISTER / POLO COACH AD GOES TO HD 3X/WEEK. SHE HAS A WALKER, S/C, AND O2 FROM [facility] HCP ON FILE PCP: ARMANI CHATMAN [facility] DELIVERED DCP: HOME, RESUME POLO COACH FAMILY TO TRANSPORT
[2022-10-22 16:32] LABS: Glucose, Whole Blood 122 mg/dL (60-115)
[2022-10-22] MEDS: Metoclopramide HCl 5 MG TABLET PO (17:10)
--- NOTE | 2022-10-22 17:10 | PC.NURSE ---
pt medicated at 1700 with PRN reglan prior to dinner arrival, pt initially resistant to PO medications, coughing/dry heaving, reattempted giving medications 5 min later and pt took and tolerated PO medication.
--- NOTE | 2022-10-22 18:46 | PC.NURSE ---
laney sent to case management re note on pt plan for discharge. pt reported to this RN that she has had unstable housing due to her sister (MILKING MACHINE MECHANIC) getting relocated to a 3rd floor apt that the pt is unable to access due to mobility and vision limitations - this has resulted in pt not being able to get to dialysis for the past two weeks and inconsistencies in access to medications. increased life stressors at home due to recent of cousin (?) and arrangements. pt reports that she has been trying to find housing but has been unsuccessful. case management notified.
[2022-10-22 20:51] LABS: Glucose, Whole Blood 124 mg/dL (60-115)
[2022-10-22] MEDS: Ketorolac Tromethamine 30 MG/ML VIAL IVPUSH (22:09)
[2022-10-23 07:37] VITALS: BP 176/82; PULSE 83; RESP 17; TEMP 36.7; O2SAT 99
[2022-10-23 07:51] LABS: Glucose, Whole Blood 93 mg/dL (60-115)
[2022-10-23 10:45] LABS: Anion Gap 10 (12-20); Blood Urea Nitrogen 18 mg/dL (9-16); Calcium 8.3 mg/dL (8.4-10.2); Carbon Dioxide 22 mmol/L (22-29); Chloride 106 mmol/L (96-108); Creatinine Clr Calc Pharmacy 44.3; Estimated Glomerular Filt Rate 30; Glucose Random 138 mg/dL (60-115); Potassium 3.2 mmol/L (3.3-5.1); Sodium 135 mmol/L (135-145)
[2022-10-23 11:32] LABS: Glucose, Whole Blood 115 mg/dL (60-115)
[2022-10-23 12:00] VITALS: BP 164/79; PULSE 82; RESP 17; TEMP 36.1; O2SAT 98
[2022-10-23] MEDS: oxyCODONE HCl Immed Release 5 MG TABLET PO (12:03)
[2022-10-23] MEDS: hydrALAZINE HCl 25 MG TABLET 75 MG PO ×3 (12:13→19:57)
[2022-10-23] MEDS: NIFEdipine ER 60 MG TAB.ER.24 PO (12:14)
[2022-10-23] MEDS: Losartan Potassium 25 MG TABLET PO (12:14)
[2022-10-23] MEDS: carvediloL 12.5 MG TABLET PO (12:14)
--- NOTE | 2022-10-23 12:21 | HO.PM.IMPN ---
Subjective Subjective Date of Service: 10/23/22 Review of Systems Follow up nausea and vomiting missed dialysis feeling better but still with pain to abd Physical Exam Vital Signs: Vital Signs: Last Vital Signs Temp 98.1 F 10/23/22 07:37 Pulse 83 10/23/22 07:37 Resp 17 10/23/22 07:37 BP 176/82 H 10/23/22 07:37 Pulse Ox 99 10/23/22 07:37 O2 Del Method Room Air 10/23/22 07:37 BMI result Body Mass Index 29.2 Appearing in no acute distress lung sounds are clear to auscultation heart regular rate rhythm, clear S1, S2 positive bowel sounds, abdomen is soft, nontender neuro patient is alert x3, no focal deficits Objective Data Active Medications Acetaminophen (Acetaminophen 325 Mg Tablet) 650 mg PO Q6H PRN PRN Reason: Pain, Mild (Pain Scale 1-3) Aspirin (Aspirin Enteric Coated 81 Mg Tablet.) 81 mg PO DAILY [facility] Last Admin: 10/23/22 08:32 Dose: Not Given Documented By: BRUCE Non-Admin Reason: Off unit: Dialysis Atorvastatin Calcium (Atorvastatin Calcium 40 Mg Tablet) 40 mg PO BEDTIME [facility] Last Admin: 10/22/22 20:54 Dose: Not Given Documented By: RUSSELL Non-Admin Reason: Patient Refused Carvedilol (Carvedilol 12.5 Mg Tablet) 12.5 mg PO BIDWM [facility]; Protocol Last Admin: 10/23/22 12:14 Dose: 12.5 mg Documented By: NITIN Clopidogrel Bisulfate (Clopidogrel Bisulfate 75 Mg Tablet) 75 mg PO DAILY [facility] Last Admin: 10/23/22 08:32 Dose: Not Given Documented By: BRUCE Non-Admin Reason: Off unit: Dialysis Dextrose (Dextrose 50 % 25 Gm/50 Ml Syringe) 25 gm IVPUSH Q15M PRN; Protocol PRN Reason: per Hypoglycemia Standing Ord. Docusate Sodium (Docusate Sodium 100 Mg Capsule) 100 mg PO DAILY PRN PRN Reason: constipation Ferrous Sulfate (Ferrous Sulfate 324 Mg Tablet.) 324 mg PO DAILY [facility] Last Admin: 10/23/22 08:32 Dose: Not Given Documented By: BRUCE Non-Admin Reason: Off unit: Dialysis Glucose (Glucose Gel 15 Gm Gel..Gram.) 15 gm PO Q15M PRN; Protocol PRN Reason: per Hypoglycemia Standing Ord. Heparin Sodium (Porcine) (Heparin Sodium,Porcine 5,000 Unit/Ml Vial) 5,000 unit SUBCUT Q12H [facility] Last Admin: 10/23/22 08:31 Dose: Not Given Documented By: BRUCE Non-Admin Reason: Off unit: Dialysis Hydralazine HCl (Hydralazine Hcl 25 Mg Tablet) 75 mg PO TID [facility]; Protocol Last Admin: 10/23/22 12:13 Dose: 75 mg Documented By: NITIN Insulin Human Lispro (Insulin Lispro 100 Unit/Ml 3 Ml Vial) 0 unit SUBCUT QIDACHS [facility]; Protocol Last Admin: 10/23/22 11:32 Dose: Not Given Documented By: NITIN Non-Admin Reason: No Insulin Coverage Losartan Potassium (Losartan Potassium 25 Mg Tablet) 25 mg PO DAILY [facility]; Protocol Last Admin: 10/23/22 12:14 Dose: 25 mg Documented By: NITIN Metoclopramide HCl (Metoclopramide Hcl 5 Mg Tablet) 5 mg PO TIDAC PRN PRN Reason: (Drug) Ingestion Last Admin: 10/22/22 17:10 Dose: 5 mg Documented By: ERICA Nifedipine (Nifedipine Er 60 Mg Tab.Er.24) 60 mg PO DAILY [facility]; Protocol Last Admin: 10/23/22 12:14 Dose: 60 mg Documented By: NITIN Omeprazole (Omeprazole 40 Mg Capsule.Dr) 40 mg PO DAILY@0630 [facility] Last Admin: 10/23/22 06:11 Dose: Not Given Documented By: RUSSELL Non-Admin Reason: Patient Refused Ondansetron HCl (Ondansetron Hcl 4 Mg/2 Ml Vial) 4 mg IVPUSH Q8H PRN PRN Reason: Nausea and Vomiting Last Admin: 10/22/22 14:46 Dose: 4 mg Documented By: ERICA Oxycodone HCl (Oxycodone Hcl Immed Release 5 Mg Tablet) 5 mg PO Q6H PRN PRN Reason: severe pain Last Admin: 10/23/22 12:03 Dose: 5 mg Documented By: NITIN Sodium Chloride (0.9 % Sodium Chloride Flush 3 Ml Syringe) 3 ml IVFLUSH QSHIFT [facility] Last Admin: 10/23/22 08:31 Dose: Not Given Documented By: BRUCE Non-Admin Reason: Off unit: Dialysis Torsemide (Torsemide 20 Mg Tablet) 40 mg PO BID [facility]; Protocol Last Admin: 10/23/22 08:32 Dose: Not Given Documented By: BRUCE Non-Admin Reason: Off unit: Dialysis Labs 10/21/22 21:06 10/23/22 09:21 Labs: Laboratory Results - last 24 hr 10/22/22 10/22/22 10/22/22 14:38 16:28 20:46 Anion Gap Estim Creat Clear Calc Estimated GFR POC Glucose 109 122 H 124 H Random Glucose Calcium 10/23/22 10/23/22 10/23/22 07:44 09:21 11:22 Anion Gap 10 L Estim Creat Clear Calc 44.3 Estimated GFR 30 POC Glucose 93 115 Random Glucose 138 H Calcium 8.3 L Assessment and Plan (1) End-stage renal disease (ESRD): Status: Acute Plan This is a 32-year-old female with extensive past medical history including CAD, ESRD on dialysis, CHF with reduced ejection fraction comes into the hospital with complaints of nausea vomiting abdominal pain found to have uncontrolled blood pressure and has missed past several dialysis sessions intractable nausea and vomiting possibly r/t uremia from missing HD vs gastroparesis diabetic gastroparesis symptomatic treatment ESRD metabolic acidosis Missed last several sessions of dialysis nephrology following for dialysis scheduling diabetic foot wound general surgery consult for debridement pain management hypertension Secondary to missing dialysis Received multiple medications in the ED Resume home medications CAD continue aspirin, carvedilol, Plavix DM type 2 hold glipizide SSI, POCs, ada diet history of GERD continue PPI chronic congestive heart failure with reduced ejection fraction No acute exacerbation, no hypoxia Continue beta-mohamud, torsemide and ARB Chronic normocytic anemia stable continue iron supplementation DVT prophylaxis:? Heparin subQ attending - dr. Weeks continue hospital stay for management of hypertensive urgency and nausea and vomiting secondary to uremia Time Spent With Patient Time: Total time managing care of this patient today ____ minutes. Quality Stroke Does the patient have a stroke diagnosis?: No VTE Prior VTE?: No VTE Risk Level:: Medical - moderate - high VTE Device Contraindication: N/A - Device Ordered VTE Drug Contraindication: N/A - Med Ordered
[2022-10-23] MEDS: HYDROmorphone HCl 0.5 MG/0.5 ML SYRINGE IVPUSH ×2 (14:20→19:58)
[2022-10-23] MEDS: ondansetron HCL 4 MG/2 ML VIAL IVPUSH (14:20)
[2022-10-23] MEDS: 0.9 % Sodium Chloride Flush 3 ML SYRINGE IVFLUSH (14:21)
--- NOTE | 2022-10-23 14:35 | P.CONGS_ITS ---
History of Present Illness Consult details Consult date: 10/23/22 <Sindi Chandra PA-C Last Filed: 10/23/22 14:48> Reason for consult: wound care <LEXA José Last Filed: 10/23/22 14:48> Requesting physician: Tawny Taylor <Sindi Chandra PA-C Last Filed: 10/23/22 14:48> Narrative: 32 years old lady with extensive PMH including ESRD on dialysis, CAD, CHF , diabetes mellitus presented to the ED with complaints of abdominal pain, nausea and vomiting after missing many dialysis sessions. She has been admitted to the medical service for further treatment. Surgical consultation was requested for evaluation of a left plantar ulceration.? The ulcer is chronic and was previously evaluated when she was seen here in August 2022.?She was supposed to follow up at the wound care center but she has not. She has been applying a dry dressing on a daily. She denies any bleeding or discharge. She reports some pain at the site.? Foot x-ray revealed soft tissue swelling and ulceration, no evidence for osteomyelitis. <Sindi Chandra PA-C Last Filed: 10/23/22 14:48> Review of Systems Constitutional: Constitutional: Denies fever(s) <Sindi Chandra PA-C Last Filed: 10/23/22 14:48> ENT: Denies dizziness <Sindi Chandra PA-C Last Filed: 10/23/22 14:48> Cardiovascular: Cardiovascular: Denies chest pain and Denies dyspnea <LEXA José Last Filed: 10/23/22 14:48> Respiratory: Respiratory: Denies dyspnea <Sindi Chandra PA-C Last Filed: 10/23/22 14:48> Gastrointestinal: Gastrointestinal: Reports as per HPI <Sindi Chandra PA-C Filed: 10/23/22 14:48> Integumentary/Breasts: Skin/Breast: Denies rash <LEXA José Last Filed: 10/23/22 14:48> Neurologic: Denies dizziness <Sindi Chandra PA-C - Last Filed: 14:48> [facility] Past Medical History Medical History: Medical History Abnormal finding on echocardiogram Acute dyspnea Acute on chronic systolic and diastolic heart failure, NYHA class 3 Acute worsening of stage 3 chronic kidney disease MYNOR (acute kidney injury) Anemia Anemia in chronic kidney disease (CKD) Asthma Atypical chest pain Back pain Blind right eye Bone infection Cardiomyopathy Cellulitis Cellulitis and abscess of foot delivery delivered Chest pain CHF (congestive heart failure) (~06/07/22) CKD (chronic kidney disease) CKD (chronic kidney disease) CKD (chronic kidney disease) stage 4, GFR 15-29 ml/min Depression with anxiety Diabetes Diabetes Diabetic foot ulcer associated with type 2 diabetes mellitus Diabetic retinopathy DM foot ulcer Elevated troponin End stage chronic kidney disease ESRD needing dialysis Essential hypertension Fever Gastroparesis Generalized edema Headache, migraine HFrEF (heart failure with reduced ejection fraction) HTN (hypertension) Hypertension (~06/10/22) Hypertension Hypertensive emergency Metabolic acidosis Migraine Osteomyelitis PAD (peripheral artery disease) Pleural effusion test positive test positive Renal failure Sepsis Severe anemia Tachycardia Type 2 diabetes mellitus with hyperglycemia, with long-term current use of insulin <Sindi Chandra PA-C - Last Filed: 10/23/22 14:48> Family History Family History: Family History Mother Coronary artery disease Myocardial infarction Stroke Diabetes mellitus Father Myocardial infarction <Sindi Chandra PA-C - Last Filed: 10/23/22 14:48> Surgical History Surgical History: Surgical History History of transmetatarsal amputation of foot S/P transmetatarsal amputation of foot <Sindi Chandra PA-C - Last Filed: 10/23/22 14:48> Social History Social History: Social History Household Members: Significant Other and Family Household Members Other:: Sister, [id number], nephew Housing: Apartment Do you presently have visiting nurse or other home services: Yes (sister is [employer]SP[employer]PER[employer] APPRENTICE) Alcohol intake: never Patient Tobacco Use Status: Never used Tobacco e-Cigarette/Vaping Use: Never Used Second Hand Smoke Exposure: No Advance Directives Date on File: 03/08/20 service: No Current occupational status: unemployed and disabled Gender identity: Female <Sindi Chandra PA-C - Last Filed: 10/23/22 14:48> Meds Allergies/Adverse reactions: Allergies Allergy/AdvReac Type Severity Reaction Status Date / Time morphine [MORPHINE] Allergy Intermediate Itching Verified 09/10/22 19:39 azithromycin [From Zithromax] Allergy Hives Verified 09/10/22 19:39 gabapentin Allergy Facial Verified 09/10/22 19:39 Swelling tramadol Allergy Facial Verified 09/10/22 19:39 Swelling vancomycin Allergy Hives Verified 09/10/22 19:39 <Sindi Chandra PA-C - Last Filed: 10/23/22 14:48> Active Medications: Current Medications Acetaminophen (Acetaminophen 325 Mg Tablet) 650 mg PO Q6H PRN PRN Reason: Pain, Mild (Pain Scale 1-3) Aspirin (Aspirin Enteric Coated 81 Mg Tablet.) 81 mg PO DAILY [facility] Last Admin: 10/23/22 08:32 Dose: Not Given Atorvastatin Calcium (Atorvastatin Calcium 40 Mg Tablet) 40 mg PO BEDTIME [facility] Last Admin: 10/22/22 20:54 Dose: Not Given Carvedilol (Carvedilol 12.5 Mg Tablet) 12.5 mg PO BIDWM [facility]; Protocol Last Admin: 10/23/22 12:14 Dose: 12.5 mg Clopidogrel Bisulfate (Clopidogrel Bisulfate 75 Mg Tablet) 75 mg PO DAILY [facility] Last Admin: 10/23/22 08:32 Dose: Not Given Dextrose (Dextrose 50 % 25 Gm/50 Ml Syringe) 25 gm IVPUSH Q15M PRN; Protocol PRN Reason: per Hypoglycemia Standing Ord. Docusate Sodium (Docusate Sodium 100 Mg Capsule) 100 mg PO DAILY PRN PRN Reason: constipation Ferrous Sulfate (Ferrous Sulfate 324 Mg Tablet.) 324 mg PO DAILY [facility] Last Admin: 10/23/22 08:32 Dose: Not Given Glucose (Glucose Gel 15 Gm Gel..Gram.) 15 gm PO Q15M PRN; Protocol PRN Reason: per Hypoglycemia Standing Ord. Heparin Sodium (Porcine) (Heparin Sodium,Porcine 5,000 Unit/Ml Vial) 5,000 unit SUBCUT Q12H [facility] Last Admin: 10/23/22 08:31 Dose: Not Given Hydralazine HCl (Hydralazine Hcl 25 Mg Tablet) 75 mg PO TID [facility]; Protocol Last Admin: 10/23/22 14:20 Dose: 75 mg Hydromorphone HCl (Hydromorphone Hcl 0.5 Mg/0.5 Ml Syringe) 0.5 mg IVPUSH Q4H PRN; Protocol PRN Reason: Pain, Mild (Pain Scale 1-3) Last Admin: 10/23/22 14:20 Dose: 0.5 mg Insulin Human Lispro (Insulin Lispro 100 Unit/Ml 3 Ml Vial) 0 unit SUBCUT QIDACHS [facility]; Protocol Last Admin: 10/23/22 11:32 Dose: Not Given Losartan Potassium (Losartan Potassium 25 Mg Tablet) 25 mg PO DAILY [facility]; Protocol Last Admin: 10/23/22 12:14 Dose: 25 mg Metoclopramide HCl (Metoclopramide Hcl 5 Mg Tablet) 5 mg PO TIDAC PRN PRN Reason: (Drug) Ingestion Last Admin: 10/22/22 17:10 Dose: 5 mg Nifedipine (Nifedipine Er 60 Mg Tab.Er.24) 60 mg PO DAILY [facility]; Protocol Last Admin: 10/23/22 12:14 Dose: 60 mg Omeprazole (Omeprazole 40 Mg Capsule.Dr) 40 mg PO DAILY@0630 [facility] Last Admin: 10/23/22 06:11 Dose: Not Given Ondansetron HCl (Ondansetron Hcl 4 Mg/2 Ml Vial) 4 mg IVPUSH Q8H PRN PRN Reason: Nausea and Vomiting Last Admin: 10/23/22 14:20 Dose: 4 mg Oxycodone HCl (Oxycodone Hcl Immed Release 5 Mg Tablet) 5 mg PO Q6H PRN PRN Reason: severe pain Last Admin: 10/23/22 12:03 Dose: 5 mg Sodium Chloride (0.9 % Sodium Chloride Flush 3 Ml [facility]ringe) [facility] Admin: 10/23/22 14:21 Dose: 3 ml Torsemide (Torsemide 20 Mg Tablet) 40 mg PO BID [facility]; Protocol Last Admin: 10/23/22 08:32 Dose: Not Given <Sindi Chandra PA-C - Last Filed: 10/23/22 14:48> Home medications: Home Medications Medication Instructions Recorded Confirmed Last Taken Type docusate sodium 100 mg capsule 100 mg PO DAILY PRN constipation 08/13/22 10/22/22 Unknown History hydralazine 25 mg tablet 75 mg PO TID 08/25/22 10/22/22 08/24/22 History carvedilol 12.5 mg tablet 12.5 mg PO BIDWM 10/22/22 10/22/22 Unknown History <LEXA José Last Filed: 10/23/22 14:48> Physical Exam Vital Signs: Vital Signs: Last Vital Signs Temp 97.0 F 10/23/22 12:00 Pulse 82 10/23/22 12:00 Resp 17 10/23/22 12:00 BP 164/79 H 10/23/22 12:00 Pulse Ox 98 10/23/22 12:00 O2 Del Method Room Air 10/23/22 12:00 BMI result Body Mass Index 29.2 <Sindi Chandra PA-C Last Filed: 10/23/22 14:48> Const: General: comfortable, no acute distress and alert <Sindi Chandra PA-C Last Filed: 10/23/22 14:48> Orientation/consciousness: patient oriented x3 <Sindi Chandra PA-C Last Filed: 10/23/22 14:48> Resp: Effort & Inspection: normal respiratory effort <LEXA José Last Filed: 10/23/22 14:48> Skin: General skin exam: no rashes or lesions noted and no jaundice <Sindi Chandra PA-C Last Filed: 10/23/22 14:48> Neuro: General: patient oriented x3 and moves all extremities <Sindi Chandra PA-C [facility] Last Filed: 10/23/22 14:48> Extrem: Other: left foot- plantar aspect with small 1cm ulceration with overlying eschar, area mildly tender, very mild edema surrounding, no fluctuance, no surrounding erythema; eschar was sharply debrided with scissors to reveal pink wound base <LEXA José Last Filed: 10/23/22 14:48> Results Labs Result diagrams: 10/21/22 21:06 10/23/22 09:21 <Sindi Chandra PA-C - Last Filed: 10/23/22 14:48> Labs: Abnormal lab results 10/22/22 10/22/22 10/23/22 Range/Units 16:28 20:46 09:21 Potassium 3.2 L D (3.3-5.1) mmol/L Anion Gap 10 L (12-20) BUN 18 H (9-16) mg/dL Creatinine 1.93 H (0.5-1.4) mg/dL POC Glucose 122 H 124 H (60-115) mg/dL Random Glucose 138 H (60-115) mg/dL Calcium 8.3 L (8.4-10.2) mg/dL BMP 10/23/22 09:21 Sodium 135 Potassium 3.2 L D Chloride 106 Carbon Dioxide 22 BUN 18 H Creatinine 1.93 H Calcium 8.3 L Urine 10/22/22 Range/Units 04:28 Urine Color Yellow Urine Appearance Cloudy Urine pH 5.5 (5.0-9.0) Ur Specific [place] 1.015 (1.005-1.025) Urine Protein >=1000 (4+) H (Neg-Trace) mg/dL Urine Glucose (UA) 250 H (Negative) mg/dL All other labs normal. <Sindi Chandra PA-C - Last Filed: 10/23/22 14:48> Assessment and Plan (1) End-stage renal disease (ESRD): Status: Acute <Sindi Chandra PA-C - Last Filed: 10/23/22 14:48> (2) Diabetic foot ulcer associated with type 2 diabetes mellitus: Status: Inactive <Sindi Chandra PA-C - Last Filed: 10/23/22 14:48> foot debrided earlier by JOVON Chandra dressings dry continue daily wound care will follow seen and examined independently <Tu Rajput MD - Last Filed: 10/23/22 16:38> 32 year old female with extensive PMH admitted for N/V and abdominal pain following multiple missed dialysis sessions with chronic left plantar ulcer. The overlying eschar was sharply debrided with scissors and revealed a pink wound base. Ulcer is clean, no evidence of active infection. The wound was dressed with silver alginate and pink foam. Can continue daily dressing changes and follow up at wound care center upon discharge. <Sindi Chandra PA-C - Last Filed: 10/23/22 14:48> Time Spent With Patient Time: Total time managing care of this patient today ____ minutes. <Sindi Chandra PA-C - Last Filed: 10/23/22 14:48> Procedures Date of Service Date of Service: 10/23/22 <Sindi Chandra PA-C - Last Filed: 10/23/22 14:48> 10/23/22 <Tu Rajput MD - Last Filed: 10/23/22 16:38>
[2022-10-23 15:09] VITALS: BP 158/76; PULSE 79; RESP 15; TEMP 36.3; O2SAT 98
[2022-10-23 16:17] LABS: Glucose, Whole Blood 128 mg/dL (60-115)
[2022-10-23 19:24] VITALS: BP 117/56; PULSE 83; RESP 17; TEMP 36.3; O2SAT 97
[2022-10-23] MEDS: Atorvastatin Calcium 40 MG TABLET PO (19:57)
[2022-10-23] MEDS: Torsemide 20 MG TABLET 40 MG PO (19:58)
[2022-10-23 20:21] LABS: Glucose, Whole Blood 128 mg/dL (60-115)
[2022-10-24] VITALS: BP 134/73; PULSE 71; RESP 18; TEMP 36; O2SAT 98
[2022-10-24] MEDS: ondansetron HCL 4 MG/2 ML VIAL IVPUSH ×2 (00:04→08:06)
[2022-10-24] MEDS: HYDROmorphone HCl 0.5 MG/0.5 ML SYRINGE IVPUSH ×3 (00:04→08:15)
[2022-10-24] MEDS: 0.9 % Sodium Chloride Flush 3 ML SYRINGE IVFLUSH ×2 (00:04→07:28)
[2022-10-24 04:00] VITALS: BP 126/64; PULSE 82; RESP 16; TEMP 36; O2SAT 97
[2022-10-24 07:34] VITALS: BP 120/68; PULSE 79; RESP 16; TEMP 36.5; O2SAT 99
[2022-10-24 07:38] LABS: Glucose, Whole Blood 123 mg/dL (60-115)
[2022-10-24] MEDS: Torsemide 20 MG TABLET 40 MG PO (08:06)
[2022-10-24] MEDS: hydrALAZINE HCl 25 MG TABLET 75 MG PO (08:07)
[2022-10-24] MEDS: Clopidogrel Bisulfate 75 MG TABLET PO (08:07)
[2022-10-24] MEDS: carvediloL 12.5 MG TABLET PO (08:07)
[2022-10-24] MEDS: Aspirin Enteric Coated 81 MG TABLET.DR PO (08:07)
[2022-10-24] MEDS: Heparin Sodium,Porcine 5,000 UNIT/ML VIAL 5000 UNIT SUBCUT (08:08)
[2022-10-24] MEDS: Ferrous Sulfate 324 MG TABLET.DR PO (08:08)
[2022-10-24] MEDS: Losartan Potassium 25 MG TABLET PO (08:08)
[2022-10-24] MEDS: NIFEdipine ER 60 MG TAB.ER.24 PO (08:08)
[2022-10-24 08:53] LABS: Anion Gap 12 (12-20); Blood Urea Nitrogen 17 mg/dL (9-16); Carbon Dioxide 25 mmol/L (22-29); Chloride 100 mmol/L (96-108); Estimated Glomerular Filt Rate 16; Glucose Random 114 mg/dL (60-115); Potassium 3.2 mmol/L (3.3-5.1); Sodium 134 mmol/L (135-145)
--- NOTE | 2022-10-24 09:31 | P.DS_ITS ---
DS: Providers Provider Date of Service: 10/24/22 Date of admission: 10/22/22 07:50 Primary care physician: Abdon Beard MD Consults: 10/22/22 07:50 Consult to Nephrology Routine Consulting Provider: Ovidio Walsh Reason for consultation: ESRD missed HD Has provider been notified: Yes 10/23/22 13:44 Consult to General Surgery Routine Consulting Provider: [facility] [place] General Surgeons Reason for consultation: foot ulcer, debridement DS: Diagnosis Discharge Diagnosis (1) End-stage renal disease (ESRD): Status: Acute (2) Diabetic foot ulcer associated with type 2 diabetes mellitus: Status: Inactive DS: Summary Hospital Course Hospital Course: 32-year-old woman well known to the hospitalist service with history of coronary artery disease, end-stage renal disease on dialysis, CHF, chronic intractable nausea and vomiting secondary to gastroparesis presents with elevated blood pressure and nausea and vomiting. She reports that she missed multiple dialysis sessions due to a family . She developed increasing abdominal pain. On admission she was dialysis eyes on 10/23/2022. Her blood pressure did respond well and has been much better controlled. In terms of the intractable nausea and vomiting. She has a history of chronic gastroparesis. She is on antiemetic medications at home. She has a diabetic foot wound that is chronic. It was debrided by the general surgeon during this admission with recommendation to continue daily wound care, silver alginate and foam dressing. She has applied for housing and is currently staying with her sister and she is to continue her regular dialysis schedule. Chronic congestive heart failure with reduced ejection fraction / cardiomyopathy. No exacerbation during admission. Continue beta-mohamud, torsemide and Arb Chronic normocytic anemia. Stable H&H. Continue iron supplementation History of GERD. Continue PPI Diabetes mellitus type 2. Continue home medications Coronary artery disease. Continue aspirin, Plavix and beta-mohamud Time Spent with Patient Time attestation: Total time managing care of this patient today ____ minutes. Discharge coordination time: Greater than 30 minutes Quality: Safe Use of Opioids Does Pt have an Active Cancer Diagnosis on the Problem List?: No Quality: Stroke Does the patient have a stroke diagnosis?: No Physical Exam Vital Signs: Vital Signs: Last Vital Signs Temp 97.7 F 10/24/22 07:34 Pulse 79 10/24/22 07:34 Resp 16 10/24/22 07:34 BP 120/68 10/24/22 07:34 Pulse Ox 99 10/24/22 07:34 O2 Del Method Room Air 10/24/22 07:34 BMI result Body Mass Index 29.2 Appearing in no acute distress head is normocephalic atraumatic eyes pupils are PERRLA sclera is anicteric mouth throat mucous membranes are intact and moist neck is supple no lymphadenopathy, no JVD noted lung sounds are clear to auscultation heart regular rate rhythm, clear S1, S2 positive bowel sounds, abdomen is soft, nontender neuro patient is alert x3, no focal deficits Diabetic foot wound, s/p debridement DS: Data Data Completed and Pending Completed studies during hospitalization [Text1]: Procedures Detachment at Right Foot, Partial 1st Ray, Open Approach (03/01/20) Detachment at Right Foot, Partial 2nd Ray, Open Approach (03/01/20) Detachment at Right Foot, Partial 3rd Ray, Open Approach (03/01/20) Detachment at Right Foot, Partial 4th Ray, Open Approach (03/01/20) Detachment at Right Foot, Partial 5th Ray, Open Approach (03/01/20) Drainage of Right Pleural Cavity, Percutaneous Approach (01/14/21) Excision of Stomach, Pylorus, Via Natural or Artificial Opening Endoscopic, Diagnostic (08/27/22) Fluoroscopy of Superior Vena Cava, Guidance (08/14/22) Insertion of Infusion Device into Right Atrium, Percutaneous Approach (08/14/22) Insertion of Infusion Device into Superior Vena Cava, Percutaneous Approach ( 01/14/21) Insertion of Tunneled Vascular Access Device into Chest Subcutaneous Tissue and Fascia, Percutaneous Approach (08/14/22) Performance of Urinary Filtration, Intermittent, Less than 6 Hours Per Day (10/05/22) Removal of Infusion Device from Great Vessel, External Approach (01/14/21) Transfusion of Nonautologous Red Blood Cells into Peripheral Vein, Percutaneous Approach (04/22/22) Labs on day of discharge: Laboratory Results - last 24 hr 10/23/22 10/23/22 10/23/22 09:21 11:22 16:10 Sodium 135 Potassium 3.2 L D Chloride 106 Carbon Dioxide 22 Anion Gap 10 L BUN 18 H Creatinine 1.93 H Estim Creat Clear Calc 44.3 Estimated GFR 30 POC Glucose 115 128 H Random Glucose 138 H Calcium 8.3 L 10/23/22 10/24/22 10/24/22 20:11 07:29 08:16 Sodium 134 L Potassium 3.2 L Chloride 100 Carbon Dioxide 25 Anion Gap 12 BUN 17 H Creatinine 3.28 H Estim Creat Clear Calc 26.0 Estimated GFR 16 POC Glucose 128 H 123 H Random Glucose 114 Calcium 9.0 D Preliminary micro results at discharge 10/22/22 Unknown Urine Culture - Preliminary Urine clean catch - Clean Catch Midstream Culture in progress. Discharge Plan Discharge Anticipated Discharge Date/Time: 10/24/22 09:27 Patient Disposition: Home, Self-Care Discharge Diagnosis: ESRD on dialysis Hypokalemia Intractable nausea and vomiting, chronic Diabetic foot wound Referrals: Carol Nolan [Other] - 1 day Abdon Beard MD [Primary Care Provider] - 1 Week Discharge Medications: New prochlorperazine [Compazine] 25 mg suppository 25 mg ME Q12H PRN (Reason: nausea and vomiting) Qty: 12 0RF ondansetron 4 mg tablet,disintegrating 4 mg PO Q8H PRN (Reason: nausea and vomiting) Qty: 10 0RF potassium chloride [K-Tab] 20 mEq tablet extended release 20 meq PO DAILY Qty: 2 0RF Continued hydralazine 25 mg tablet 75 mg PO TID metoclopramide HCl 5 mg Tablet 5 mg PO TIDAC PRN (Reason: (Drug) Ingestion) Qty: 90 0RF oxycodone 5 mg tablet 5 mg PO Q6H PRN (Reason: severe pain) Qty: 20 0RF carvedilol 12.5 mg tablet 12.5 mg PO BIDWM docusate sodium 100 mg capsule 100 mg PO DAILY PRN (Reason: constipation) atorvastatin 40 mg Tablet 40 mg PO BEDTIME Qty: 90 0RF clopidogrel 75 mg Tablet 75 mg PO DAILY Qty: 90 0RF aspirin 81 mg Tablet,Delayed Release (Dr/Ec) 81 mg PO DAILY Qty: 90 0RF losartan 25 mg Tablet 25 mg PO DAILY Qty: 90 0RF Protocol: Hold for SBP< HOLD for SBP < : 90 omeprazole 40 mg Capsule,Delayed Release(Dr/Ec) 40 mg PO DAILY@0630 Qty: 90 0RF torsemide 20 mg tablet 40 mg PO BID Qty: 180 0RF nifedipine 60 mg tablet extended release 24hr 60 mg PO DAILY Qty: 90 0RF ferrous fumarate [Ferrocite] 324 mg (106 mg iron) tablet 324 mg PO DAILY Qty: 90 0RF glipizide 2.5 mg tablet extended release 24hr 2.5 mg PO DAILY Qty: 90 0RF Discharge Orders: Discharge Order (Routine); Ordered 10/24/22 Ordered By: Tawny Taylor Diet: Advance to usual diet Activity on Discharge: As tolerated Stand Alone Forms: Patient Portal Discharge page Care Plan Goals: Diabetic foot wound: Cleanse area daily, cover with silver alginate and foam dressing Health Concerns: end-stage renal disease on dialysis Hypokalemia Intractable nausea and vomiting, chronic Diabetic foot wound Plan of Treatment: Continue your dialysis schedule of Sunday, Sunday and Sunday Take all medications as prescribed Assessment: see discharge summary
--- NOTE | 2022-10-24 09:47 | MHC.CM.PN ---
IMM 10/22/22 Patient is discharged home today. [employer] services will resume. She will resume HD . Patient will transport via BLS.
[2022-10-24 11:47] LABS: Glucose, Whole Blood 180 mg/dL (60-115)
[2022-10-24] MEDS: Insulin Lispro 100 UNIT/ML 3 ML VIAL SUBCUT (11:50)
--- NOTE | 2022-10-24 14:05 | P.CDIM_ITS ---
PROVIDER RESPONSE TEXT: To clarify, the appropriate diagnosis supported by the clinical indicators: Acute on chronic QUERY TEXT: PHYSICIAN'S DOCUMENTATION REQUEST Date of Query: 10/23/2022 12:52 PM EDT Patient Name: Shereen Taylor Admit Date: 10/22/2022 Dear Tawny Taylor, A review of the medical record indicates additional documentation may be needed. Please review below and update the documentation accordingly. Clinical Indicators: Per Hospitalist Progress Note 10/23/22: ESRD metabolic acidosis Missed last several sessions of dialysis nephrology following for dialysis scheduling Clarify which of the following accurately represents the acuity of the Metabolic acidosis. Possible options might include: Acute Acute on chronic Compensated Chronic stable condition Remission Other (explain)Clinically unable to determine (explain)Thank you, Latoya Hooker RN Use of terms such as suspected, likely, concern for, or probable (associated with a specific diagnosi s that is being evaluated, monitored, or treated as if it exists) are acceptable and can be coded in the inpatient se tting, when documented at the time of discharge. Please use your independent medical judgment in providing your response. THIS QUERY IS PART OF THE PERMANENT MEDICAL RECORD
== END 2022-10-24 12:12 | disposition home or self-care (01) | DRG 291 ==
LOC: HO.ED 10-22 07:36 → HO.EDOVER 10-22 07:56 → HO.S3 10-22 17:51
PROVIDERS: Emergency Medicine; Admitting Provider Physician Assistant Medical; Emergency Provider Emergency Medicine; PCP Internal Medicine; Visit Provider Nurse Practitioner Acute Care
DX: I13.2 Hypertensive heart and chronic kidney disease with heart failure and with stage 5 chronic kidney disease, or end stage renal disease (principal); N18.6 End stage renal disease; E87.22 Chronic metabolic acidosis; E87.21 Acute metabolic acidosis; L97.429 Non-pressure chronic ulcer of left heel and midfoot with unspecified severity; I50.22 Chronic systolic (congestive) heart failure; Z99.2 Dependence on renal dialysis; E11.43 Type 2 diabetes mellitus with diabetic autonomic (poly)neuropathy; E11.22 Type 2 diabetes mellitus with diabetic chronic kidney disease; E11.621 Type 2 diabetes mellitus with foot ulcer; I25.10 Atherosclerotic heart disease of native coronary artery without angina pectoris; D63.1 Anemia in chronic kidney disease; K31.84 Gastroparesis; Z91.158 Patient's noncompliance with renal dialysis for other reason; Z79.02 Long term (current) use of antithrombotics/antiplatelets; Z79.84 Long term (current) use of oral hypoglycemic drugs; Z79.899 Other long term (current) drug therapy
CPT/HCPCS: 36415; 71045; 73630; 74176; 80048; 80053; 81001; 82947; 83690; 85025; 85652; 86140; 87086; 87088; 87147; 87186; 90999; 93005; 99285; J1170; J1643; J1885; J2405; J2765

== ENCOUNTER → 2022-10-22 07:50 | Outpatient (BNV) | payer OTHER, SELFPAY | PROVIDERS: Admitting Provider Physician Assistant Medical; Emergency Provider Emergency Medicine; Visit Provider Physician Assistant Surgical | DX: N18.6 End stage renal disease (principal); E11.621 Type 2 diabetes mellitus with foot ulcer; L97.529 Non-pressure chronic ulcer of other part of left foot with unspecified severity | CPT/HCPCS: 97597; 99222 ==

== ENCOUNTER → 2022-10-22 07:50 | Outpatient (BNV) | payer OTHER, SELFPAY | PROVIDERS: Admitting Provider Physician Assistant Medical; Emergency Provider Emergency Medicine; Visit Provider Physician Assistant Medical | DX: N18.6 End stage renal disease (principal); E11.621 Type 2 diabetes mellitus with foot ulcer; L97.519 Non-pressure chronic ulcer of other part of right foot with unspecified severity | CPT/HCPCS: 99223; 99232; 99239 ==

== ENCOUNTER 2022-11-02 13:21 | Outpatient (RCR) | payer OTHER, SELFPAY | END 2022-11-22 17:00 | disposition home or self-care (01) | LOC: HO.WCC 13:21 | PROVIDERS: Visit Provider Surgery | DX: E10.621 Type 1 diabetes mellitus with foot ulcer (principal); L97.422 Non-pressure chronic ulcer of left heel and midfoot with fat layer exposed; E10.22 Type 1 diabetes mellitus with diabetic chronic kidney disease; I13.2 Hypertensive heart and chronic kidney disease with heart failure and with stage 5 chronic kidney disease, or end stage renal disease; I50.9 Heart failure, unspecified; N18.6 End stage renal disease; E10.40 Type 1 diabetes mellitus with diabetic neuropathy, unspecified; E10.51 Type 1 diabetes mellitus with diabetic peripheral angiopathy without gangrene; E10.319 Type 1 diabetes mellitus with unspecified diabetic retinopathy without macular edema; Z99.2 Dependence on renal dialysis; Z91.158 Patient's noncompliance with renal dialysis for other reason | CPT/HCPCS: 11042 ==

== ENCOUNTER 2022-11-07 15:14 | Outpatient (REF) | payer OTHER, SELFPAY ==
--- NOTE | ~2022-11-07 | US_ITS ---
EXAMINATION: US PELVIS COMPLETE CLINICAL INFORMATION: Amenorrhea COMPARISON: CT abdomen pelvis 10/21/2022 TECHNIQUE: Transabdominal and transvaginal imaging was performed. FINDINGS: The uterus is of normal size and echogenicity measuring 7.3 x 4.0 x 5.3 cm. A regular homogeneous endometrium is identified measuring 0.7 cm. Nabothian cysts in the cervix. Both ovaries are of normal echogenicity. The right measures 4.2 x 2.8 x 2.0 cm for a volume of 11.7 mL. The left measures 2.2 x 1.7 x 2.0 cm for a volume of 2.9 mL. Physiologic right ovarian dominant follicle /benign cyst measuring 1.7 cm with a daughter follicle, no follow-up imaging recommended. There is trace simple physiologic volume pelvic free fluid. US/US pelvic and transvaginal IMPRESSION: Unremarkable pelvic ultrasound.
== END 2022-11-07 15:15 | disposition home or self-care (01) ==
LOC: HO.US 15:14
PROVIDERS: PCP Internal Medicine; Visit Provider Registered Nurse
DX: N91.2 Amenorrhea, unspecified (principal)
CPT/HCPCS: 76830; 76856

== ENCOUNTER 2022-11-22 17:26 | Emergency (ER) | payer OTHER, SELFPAY ==
--- NOTE | ~2022-11-22 | CT_ITS ---
EXAMINATION: CT HEAD WITHOUT CONTRAST (STROKE PROTOCOL) CLINICAL INFORMATION: Stroke protocol. Dizziness. COMPARISON: None available. TECHNIQUE: Contiguous axial imaging was performed from the skull base to vertex without intravenous administration of contrast. This CT examination was performed using dose optimization techniques as appropriate, variously including the following: *Automated exposure control *Adjustment of mA and/or kV according to patient size (this includes techniques or standardized protocols for targeted exams where dose is matched to indication/reason for exam; i.e. extremities or head) *Use of iterative reconstruction technique DLP: 1391. mGy-cm FINDINGS: The lateral, third and fourth ventricles are normally outlined. The cortical sulci and basal cisterns are normally outlined as well. There is no acute territorial defect, hemorrhage or midline shift. The extra-axial spaces are unremarkable. Calvarium: Intact. Maxillofacial sinuses and mastoids: Clear as visualized. CT/CT head for stroke IMPRESSION: No acute intracranial pathology. This critical result was discussed with Dr. Farfan at 6:03 PM hours on 11/22/2022. It was ascertained that the content and urgency of the report was understood at the time of direct communication.
--- NOTE | ~2022-11-22 | XR_ITS ---
EXAMINATION: XR CHEST CLINICAL INFORMATION: Cough. COMPARISON: None available. TECHNIQUE: Frontal view of the chest was obtained. FINDINGS: The cardiomediastinal silhouette is stable. A dual-lumen central catheter is noted in a stable position. There is no focal lung consolidation or pleural effusion. The bony structures and soft tissues are unremarkable. XR/XR chest 1V IMPRESSION: No active cardiopulmonary disease.
[2022-11-22 17:35] VITALS: BP 206/128; PULSE 108; O2SAT 99
[2022-11-22 17:46] VITALS: BP 193/122; PULSE 101; RESP 20; TEMP 36.8; O2SAT 98; BMI 29.0
--- NOTE | 2022-11-22 18:13 | ED.GENADULT ---
HPI - General Adult General Chief complaint: General Medical Stated complaint: dizzy,headache, missed dialysis Time Seen by Provider: 11/22/22 18:10 Source: patient Mode of arrival: EMS Limitations: no limitations History of Present Illness HPI narrative: Patient is 32 years old with history of end-stage renal disease on dialysis hypertension congestive heart failure reddened applied mood disorder chronic abdominal pain seen manager water diagnosis gastroparesis advised take Reglan and PPI patient had 2 CT scan last month and seen manager water comes here for 4 days of abdominal pain nausea vomiting similar to that in the past coughing body aches labs last dialysis was 2 days ago and missed her dialysis today no fever or chills Related Data Home Medications Medication Instructions Recorded Confirmed docusate sodium 100 mg capsule 100 mg PO DAILY PRN constipation 08/13/22 10/22/22 hydralazine 25 mg tablet 75 mg PO TID 08/25/22 10/22/22 carvedilol 12.5 mg tablet 12.5 mg PO BIDWM 10/22/22 10/22/22 Previous Rx's Medication Instructions Recorded aspirin 81 mg tablet,delayed 81 mg PO DAILY #90 tabs 08/20/22 release atorvastatin 40 mg tablet 40 mg PO BEDTIME #90 tabs 08/20/22 clopidogrel 75 mg tablet 75 mg PO DAILY #90 tabs 08/20/22 ferrous fumarate 324 mg (106 mg 324 mg PO DAILY #90 tabs 08/20/22 iron) tablet (Ferrocite) glipizide 2.5 mg tablet, extended 2.5 mg PO DAILY #90 tabs 08/20/22 release 24 hr losartan 25 mg tablet 25 mg PO DAILY #90 tabs 08/20/22 nifedipine 60 mg tablet,extended 60 mg PO DAILY #90 tabs 08/20/22 release 24 hr omeprazole 40 mg capsule,delayed 40 mg PO DAILY@0630 #90 caps 08/20/22 release torsemide 20 mg tablet 40 mg (2 x 20 mg) PO BID #180 tabs 08/20/22 metoclopramide HCl 5 mg tablet 5 mg PO TIDAC PRN (Drug) Ingestion 08/28/22 #90 tabs oxycodone 5 mg tablet 5 mg PO Q6H PRN severe pain #20 10/07/22 tabs ondansetron 4 mg disintegrating 4 mg PO Q8H PRN nausea and 10/22/22 tablet vomiting #10 tabs prochlorperazine 25 mg rectal 25 mg IN Q12H PRN nausea and 10/22/22 suppository (Compazine) vomiting #12 ea potassium chloride 20 mEq 20 meq PO DAILY #2 tabs 10/24/22 tablet,extended release (K-Tab) hydromorphone 2 mg tablet 2 mg PO Q6H PRN pain #10 tabs 11/22/22 (Dilaudid) ondansetron 4 mg disintegrating 4 mg PO Q6-8H PRN nausea and 11/22/22 tablet vomiting #7 tabs Allergies Allergy/AdvReac Type Severity Reaction Status Date / Time morphine [MORPHINE] Allergy Intermediate Itching Verified 09/10/22 19:39 azithromycin [From Zithromax] Allergy Hives Verified 09/10/22 19:39 gabapentin Allergy Facial Verified 09/10/22 19:39 Swelling tramadol Allergy Facial Verified 09/10/22 19:39 Swelling vancomycin Allergy Hives Verified 09/10/22 19:39 Review of Systems Review of Systems: Yes all other systems are reviewed and are negative PMFSH Past Medical History Medical History Hypertension End-stage renal disease (ESRD) Gastroparesis End stage chronic kidney disease Diabetic foot ulcer associated with type 2 diabetes mellitus Hypertensive emergency Hypertension Renal failure Diabetes ESRD needing dialysis Cardiomyopathy HFrEF (heart failure with reduced ejection fraction) Metabolic acidosis CKD (chronic kidney disease) stage 4, GFR 15-29 ml/min Acute on chronic systolic and diastolic heart failure, NYHA class 3 delivery delivered CKD (chronic kidney disease) Anemia in chronic kidney disease (CKD) Hypertension (~06/10/22) Anemia CKD (chronic kidney disease) Headache, migraine MYNOR (acute kidney injury) Abnormal finding on echocardiogram Elevated troponin Chest pain Acute worsening of stage 3 chronic kidney disease Generalized edema Sepsis Cellulitis Fever Pleural effusion CHF (congestive heart failure) (~06/07/22) Tachycardia Acute dyspnea Atypical chest pain Migraine Bone infection PAD (peripheral artery disease) Severe anemia Cellulitis and abscess of foot DM foot ulcer Osteomyelitis test positive test positive Asthma Depression with anxiety Essential hypertension Diabetic retinopathy Type 2 diabetes mellitus with hyperglycemia, with long-term current use of insulin Blind right eye HTN (hypertension) Diabetes Back pain Surgical History 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 Family History Family History Mother Coronary artery disease Myocardial infarction Stroke Diabetes mellitus Father Myocardial infarction Social History Social History Household Members: Significant Other and Family Household Members Other:: Sister, [id number], nephew Housing: Apartment Do you presently have visiting nurse or other home services: Yes (sister is [employer] OPERATOR) Alcohol intake: never Patient Tobacco Use Status: Never used Tobacco Smoked in Last 30 Days: No e-Cigarette/Vaping Use: Never Used Second Hand Smoke Exposure: No Use of substances other than those prescribed or required for medical reasons: No Advance Directives: Yes Advance Directives on File: Yes Advance Directives Date on File: 03/08/20 Patient : No service: No Current occupational status: unemployed and disabled Gender identity: Female Physical Exam ED Vital Signs: Vital Signs - 24 hr 11/22/22 17:46 11/22/22 20:13 11/22/22 20:18 Temperature 98.3 F 97.6 F Pulse Rate 101 H 99 Respiratory Rate 20 16 Blood Pressure 193/122 H 189/110 H Pulse Oximetry 98 96 Oxygen Delivery Method Room Air Room Air 11/22/22 22:40 Temperature Pulse Rate 92 Respiratory Rate 16 Blood Pressure 177/107 H Pulse Oximetry Oxygen Delivery Method BMI result Body Mass Index 29.0 Appearance: Alert. Anxious No acute distress. Eyes: Legally blind ENT: Pharynx normal. Oral Mucosa moist Neck: Normal inspection. Neck supple. CVS: Normal heart rate and rhythm. Pulses normal. Respiratory: No respiratory distress. Equal air entry bilateral, no wheezing/rales/rhonchi Abdomen: Soft mild epigastric tenderness Bowel sounds are present, no mass palpable, no CVA tenderness Skin: Skin warm and dry. Normal skin color. Normal skin turgor. Extremities: No lower extremity edema. No calf tenderness Neuro: Alert and awake Medications Administered Discontinued Medications Generic Name Dose Route Start Last Admin Trade Name Freq PRN Reason Stop Dose Admin Bumetanide 2 mg 11/22/22 20:17 11/22/22 20:33 Bumetanide 1 Mg Tablet PO 11/22/22 20:18 2 mg ONCE ONE Administration Protocol Clonidine HCl 0.2 mg 11/22/22 20:16 11/22/22 20:33 Clonidine Hcl 0.2 Mg Tablet PO 11/22/22 20:17 0.2 mg ONCE ONE Administration Protocol Hydralazine HCl 100 mg 11/22/22 18:15 11/22/22 18:37 Hydralazine Hcl 50 Mg Tablet PO 11/22/22 18:16 100 mg ONCE ONE Administration Protocol Hydromorphone HCl 2 mg 11/22/22 21:58 11/22/22 22:05 Hydromorphone Hcl 2 Mg Tablet PO 11/22/22 21:59 2 mg ONCE ONE Administration Lorazepam 1 mg 11/22/22 18:28 11/22/22 18:37 Lorazepam 1 Mg Tablet PO 11/22/22 18:29 1 mg ONCE ONE Administration Lorazepam 2 mg 11/22/22 21:09 11/22/22 21:33 Lorazepam 1 Mg Tablet PO 11/22/22 21:10 2 mg ONCE ONE Administration Ondansetron HCl 4 mg 11/22/22 18:24 11/22/22 18:38 Ondansetron Odt 4 Mg Tab.Rapdis TRANSLINGU 11/22/22 18:25 4 mg ONCE ONE Administration Medical Decision Making Medical Decision Making [facility] Narrative: Patient hypertension chronic pain end-stage renal disease missed dialysis comes in with diffuse body pain and vomiting workup showed CKD without any impending MYNOR chest x-ray negative patient had elevated blood pressure which improved after patient received the pain medication no vomiting noticed in the ER blood pressure improved 151/92 at the time of discharge advised to follow with pain clinic and PCP and have dialysis as scheduled Differential Diagnosis Differential Diagnoses: The differential diagnosis associated with the presentation includes MYNOR/uremia/viral syndrome/chronic pain syndrome Lab Data [facility] Lab Attestation statement: I reviewed the patient's lab results. 11/22/22 18:40 11/22/22 18:40 Labs: Lab Results 11/22/22 11/22/22 Range/Units 18:40 19:53 WBC 5.6 (4.8-10.8) X10*3/uL RBC 3.20 L (4.20-5.50) X10*6/uL Hgb 9.6 L (12.0-16.0) g/dl Hct 30.3 L (37.0-47.0) % MCV 94.7 (80.0-98.0) fL MCH 30.0 (27.0-33.0) pg MCHC 31.7 (31.0-35.0) g/dl RDW 18.3 H (11.0-16.0) % Plt Count 171 (160-400) X10*3/uL MPV 12.3 (9.4-12.3) fL Immature Gran % (Auto) 0.4 (0.0-0.4) % Neut % (Auto) 81.1 H (45-73) % Lymph % (Auto) 9.9 L (20-40) % [place] % (Auto) 6.9 (2-11) % Eos % (Auto) 1.2 (0-4) % Baso % (Auto) 0.5 (0-2) % Lymph # (Auto) 0.6 L (1.2-4.9) X10*3/uL [place] # (Auto) 0.4 (0.1-1.2) X10*3/uL Eos # (Auto) 0.1 (0.0-0.4) X10*3/uL Baso # (Auto) 0.0 (0.0-0.2) X10*3/uL Abs Immat Gran (auto) 0.02 (0.00-0.03) X10*3/uL Absolute Neuts (auto) 4.6 (2.0-8.3) x10*3/uL Absolute Nucleated RBC 0.000 (0.0-0.012) X10*3/uL Nucleated RBC % (auto) 0.0 (0.0-0.2) /100WBC Sodium 135 (135-145) mmol/L Potassium 4.4 D (3.3-5.1) mmol/L Chloride 107 (96-108) mmol/L Carbon Dioxide 20 L (22-29) mmol/L Anion Gap 12 (12-20) BUN 61 H (9-16) mg/dL Creatinine 5.18 H* (0.5-1.4) mg/dL Estim Creat Clear Calc 16.4 Estimated GFR 10 POC Glucose 155 H (60-115) mg/dL Random Glucose 142 H (60-115) mg/dL Calcium 8.2 L D (8.4-10.2) mg/dL Total Bilirubin 1.9 H (0.0-1.0) mg/dL AST 67 H (5-31) U/L ALT 130 H (0-31) U/L Alkaline Phosphatase 124 H (39-117) U/L Total Protein 6.4 L (6.5-8.0) g/dL Albumin 3.1 L (3.5-5.0) g/dL Lipase 38 (8-78) U/L Influenza Type A (PCR) NEGATIVE (Negative) Influenza Type B (PCR) NEGATIVE (Negative) RSV RNA Qual (PCR) NEGATIVE (Negative) SARS-CoV-2 RNA (RT-PCR) NEGATIVE (Negative) Discharge Plan Discharge Clinical Impression: Chronic pain, End-stage renal disease (ESRD) Patient Disposition: Home, Self-Care Instructions: Chronic Pain (ED), End Stage Kidney Disease (ED) Additional Instructions: Have dialysis on Sunday as scheduled Pain medication as prescribed Follow-up with nephrology Prescriptions: New hydromorphone [Dilaudid] 2 mg tablet 2 mg PO Q6H PRN (Reason: pain) Qty: 10 0RF Rx Instructions: Partial Fill upon patient request. ondansetron 4 mg tablet,disintegrating 4 mg PO Q6-8H PRN (Reason: nausea and vomiting) Qty: 7 0RF No Action hydralazine 25 mg tablet 75 mg PO TID metoclopramide HCl 5 mg Tablet 5 mg PO TIDAC PRN (Reason: (Drug) Ingestion) Qty: 90 0RF oxycodone 5 mg tablet 5 mg PO Q6H PRN (Reason: severe pain) Qty: 20 0RF prochlorperazine [Compazine] 25 mg suppository 25 mg IN Q12H PRN (Reason: nausea and vomiting) Qty: 12 0RF ondansetron 4 mg tablet,disintegrating 4 mg PO Q8H PRN (Reason: nausea and vomiting) Qty: 10 0RF carvedilol 12.5 mg tablet 12.5 mg PO BIDWM potassium chloride [K-Tab] 20 mEq tablet extended release 20 meq PO DAILY Qty: 2 0RF docusate sodium 100 mg capsule 100 mg PO DAILY PRN (Reason: constipation) atorvastatin 40 mg Tablet 40 mg PO BEDTIME Qty: 90 0RF clopidogrel 75 mg Tablet 75 mg PO DAILY Qty: 90 0RF aspirin 81 mg Tablet,Delayed Release (Dr/Ec) 81 mg PO DAILY Qty: 90 0RF losartan 25 mg Tablet 25 mg PO DAILY Qty: 90 0RF Protocol: Hold for SBP< HOLD for SBP < : 90 omeprazole 40 mg Capsule,Delayed Release(Dr/Ec) 40 mg PO DAILY@0630 Qty: 90 0RF torsemide 20 mg tablet 40 mg PO BID Qty: 180 0RF nifedipine 60 mg tablet extended release 24hr 60 mg PO DAILY Qty: 90 0RF ferrous fumarate [Ferrocite] 324 mg (106 mg iron) tablet 324 mg PO DAILY Qty: 90 0RF glipizide 2.5 mg tablet extended release 24hr 2.5 mg PO DAILY Qty: 90 0RF
[2022-11-22] MEDS: hydrALAZINE HCl 50 MG TABLET 100 MG PO (18:37)
[2022-11-22] MEDS: LORazepam 1 MG TABLET PO (18:37)
[2022-11-22] MEDS: Ondansetron ODT 4 MG TAB.RAPDIS TRANSLINGU (18:38)
[2022-11-22 18:44] LABS: MANUAL DIFF FLAG NO
[2022-11-22 19:02] LABS: Alanine Aminotransferase 130 U/L (0-31); Albumin Level 3.1 g/dL (3.5-5.0); Alkaline Phosphatase 124 U/L (39-117); Anion Gap 12 (12-20); Aspartate Amino Transferase 67 U/L (5-31); Bilirubin Total 1.9 mg/dL (0.0-1.0); Blood Urea Nitrogen 61 mg/dL (9-16); Calcium 8.2 mg/dL (8.4-10.2); Carbon Dioxide 20 mmol/L (22-29); Chloride 107 mmol/L (96-108); Creatinine Clr Calc Pharmacy 16.4; Estimated Glomerular Filt Rate 10; Glucose Random 142 mg/dL (60-115); Lipase 38 U/L (8-78); Potassium 4.4 mmol/L (3.3-5.1); Sodium 135 mmol/L (135-145); Total Protein 6.4 g/dL (6.5-8.0)
[2022-11-22 19:13] LABS: Basophils Percent Auto 0.5 % (0-2); Eosinophils Absolute Auto 0.1 X10*3/uL (0.0-0.4); Eosinophils Percent Auto 1.2 % (0-4); Hematocrit 30.3 % (37.0-47.0); Hemoglobin 9.6 g/dl (12.0-16.0); Imm Gran Abs Auto 0.02 X10*3/uL (0.00-0.03); Imm Gran Pct Auto 0.4 % (0.0-0.4); Lymphocytes Absolute Auto 0.6 X10*3/uL (1.2-4.9); Lymphocytes Percent Auto 9.9 % (20-40); Mean Corpuscular HGB Conc 31.7 g/dl (31.0-35.0); Mean Corpuscular Volume 94.7 fL (80.0-98.0); Mean Platelet Volume 12.3 fL (9.4-12.3); Monocytes Absolute Auto 0.4 X10*3/uL (0.1-1.2); Monocytes Percent Auto 6.9 % (2-11); Neutrophils Absolute Auto 4.6 x10*3/uL (2.0-8.3); Neutrophils Percent Auto 81.1 % (45-73); Platelet Count 171 X10*3/uL (160-400); Red Cell Distribution Width 18.3 % (11.0-16.0); White Blood Count 5.6 X10*3/uL (4.8-10.8)
[2022-11-22 19:23] LABS: Influenza A PCR NEGATIVE (Negative); Influenza B PCR NEGATIVE (Negative); Resp Syncy Virus RNA Qual PCR NEGATIVE (Negative); SARS COV2 PCR INHOUSE NEGATIVE (Negative)
[2022-11-22 19:56] LABS: Glucose, Whole Blood 155 mg/dL (60-115)
[2022-11-22 20:13] VITALS: BP 189/110; PULSE 99; RESP 16; O2SAT 96
[2022-11-22 20:18] VITALS: TEMP 36.4
[2022-11-22] MEDS: cloNIDine HCL 0.2 MG TABLET PO (20:33)
[2022-11-22] MEDS: Bumetanide 1 MG TABLET 2 MG PO (20:33)
[2022-11-22] MEDS: LORazepam 1 MG TABLET 2 MG PO (21:33)
[2022-11-22] MEDS: HYDROmorphone HCl 2 MG TABLET PO (22:05)
[2022-11-22 22:40] VITALS: BP 177/107; PULSE 92; RESP 16
== END 2022-11-22 22:45 | disposition home or self-care (01) ==
PROVIDERS: Emergency Provider Internal Medicine
DX: R42 Dizziness and giddiness (principal); E11.22 Type 2 diabetes mellitus with diabetic chronic kidney disease; I12.0 Hypertensive chronic kidney disease with stage 5 chronic kidney disease or end stage renal disease; N18.6 End stage renal disease; R05.9 Cough, unspecified; R51.9 Headache, unspecified; Z20.822 Contact with and (suspected) exposure to COVID-19; Z20.828 Contact with and (suspected) exposure to other viral communicable diseases; Z91.158 Patient's noncompliance with renal dialysis for other reason; Z79.899 Other long term (current) drug therapy
CPT/HCPCS: 0241U; 70450; 71045; 80053; 82947; 83690; 85025; 99284

== ENCOUNTER 2022-11-28 14:33 | Inpatient (IN) | payer OTHER, SELFPAY ==
[2022-11-28] VITALS (9 sets, daily range): BP systolic 165–201; BP diastolic 62–124; PULSE 99–110; RESP 16–22; TEMP 36.8; O2SAT 95–100; BMI 31.4
--- NOTE | ~2022-11-28 | XR_ITS ---
EXAMINATION: XR CHEST CLINICAL INFORMATION: Chest pain COMPARISON: Frontal view 11/22/22 TECHNIQUE: 2 views of the chest were obtained. FINDINGS: Devices overlie the patient. Large caliber dual lumen right-sided vascular catheter tip projects close to the expected junction of SVC with right atrium Mild rotation to the left. The cardiac silhouette is mildly prominent. The left hilum is obscured. The right hilum is partially obscured. The central vessels are prominent. No dense focal pneumonia. Moderate relative elevation of right hemidiaphragm. No pneumothorax XR/XR chest 2V IMPRESSION: No focal pneumonia or alveolar edema.
--- NOTE | 2022-11-28 14:38 | ECG_ITS ---
Test Reason : shortness of breath Blood Pressure : / mmHG Vent. Rate : 102 BPM Atrial Rate : 102 BPM P-R Int : 154 ms QRS Dur : 138 ms QT Int : 386 ms P-R-T Axes : 074 005 045 degrees QTc Int : 503 ms Sinus tachycardia Possible Left atrial enlargement Right bundle branch block Abnormal ECG When compared with ECG of 21-OCT-2022 21:39, No significant change was found Referred By: Ivette Kincaid Electronically Signed By:JULIÁN CANCINO
--- NOTE | 2022-11-28 14:53 | ED_ITS ---
HPI - Chest Pain General Chief Complaint: Chest Pain Stated Complaint: BODYACHES,MISSED DIALYSIS PER EMS Time Seen by Provider: 11/28/22 14:33 Source: patient Mode of arrival: EMS History of Present Illness HPI narrative: 32-year-old female arrives via EMS for onset of chest discomfort as 399 associated with multiple episodes of nausea and vomiting, not feeling well, last bowel movement today and states that she has not been to dialysis since last Sunday. She reports body aches. Related Data Home Medications Medication Instructions Recorded Confirmed hydralazine 25 mg tablet 75 mg PO TID 08/25/22 11/28/22 Previous Rx's Medication Instructions Recorded aspirin 81 mg tablet,delayed 81 mg PO DAILY #90 tabs 08/20/22 release atorvastatin 40 mg tablet 40 mg PO BEDTIME #90 tabs 08/20/22 clopidogrel 75 mg tablet 75 mg PO DAILY #90 tabs 08/20/22 glipizide 2.5 mg tablet, extended 2.5 mg PO DAILY #90 tabs 08/20/22 release 24 hr losartan 25 mg tablet 25 mg PO DAILY #90 tabs 08/20/22 nifedipine 60 mg tablet,extended 60 mg PO DAILY #90 tabs 08/20/22 release 24 hr omeprazole 40 mg capsule,delayed 40 mg PO DAILY@0630 #90 caps 08/20/22 release torsemide 20 mg tablet 40 mg (2 x 20 mg) PO BID #180 tabs 08/20/22 oxycodone 5 mg tablet 5 mg PO Q6H PRN severe pain #20 10/07/22 tabs ondansetron 4 mg disintegrating 4 mg PO Q6-8H PRN nausea and 11/22/22 tablet vomiting #7 tabs Allergies Allergy/AdvReac Type Severity Reaction Status Date / Time morphine [MORPHINE] Allergy Intermediate Itching Verified 11/28/22 14:51 azithromycin [From Zithromax] Allergy Hives Verified 11/28/22 14:51 gabapentin Allergy Facial Verified 11/28/22 14:51 Swelling tramadol Allergy Facial Verified 11/28/22 14:51 Swelling vancomycin Allergy Hives Verified 11/28/22 14:51 Review of Systems 2 Review of Systems: Pertinent positives and negatives as stated in HPI PMFSH Past Medical History Source: nursing notes reviewed Medical History Non-compliance with renal dialysis Hypertension End-stage renal disease (ESRD) Gastroparesis Diabetic foot ulcer associated with type 2 diabetes mellitus Hypertensive emergency Diabetes ESRD needing dialysis Cardiomyopathy HFrEF (heart failure with reduced ejection fraction) Metabolic acidosis delivery delivered Anemia in chronic kidney disease (CKD) CKD (chronic kidney disease) Headache, migraine Abnormal finding on echocardiogram Elevated troponin Chest pain Acute worsening of stage 3 chronic kidney disease Generalized edema Sepsis Cellulitis Pleural effusion CHF (congestive heart failure) (~06/07/22) Tachycardia Atypical chest pain Bone infection PAD (peripheral artery disease) Severe anemia Cellulitis and abscess of foot DM foot ulcer Osteomyelitis test positive test positive Asthma Depression with anxiety Diabetic retinopathy Type 2 diabetes mellitus with hyperglycemia, with long-term current use of insulin Blind right eye Diabetes Back pain Surgical History 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 Family History Family History Mother Coronary artery disease Myocardial infarction Stroke Diabetes mellitus Father Myocardial infarction Social History Social History Household Members: Significant Other and Family Household Members Other:: Sister, [id number], nephew Housing: Apartment Do you presently have visiting nurse or other home services: Yes (sister is HOTEL MAINTENANCE TECHNICIAN) Alcohol intake: never Patient Tobacco Use Status: Never used Tobacco Smoked in Last 30 Days: No e-Cigarette/Vaping Use: Never Used Second Hand Smoke Exposure: No Use of substances other than those prescribed or required for medical reasons: No Advance Directives: Yes Advance Directives on File: Yes Advance Directives Date on File: 03/08/20 service: No Current occupational status: unemployed and disabled Gender identity: Female Physical Exam 2 Vital Signs: Vital Signs: Last Vital Signs Temp 98.2 F 11/28/22 14:45 Pulse 110 H 11/28/22 19:01 Resp 16 11/28/22 19:01 BP 201/121 H 11/28/22 19:01 Pulse Ox 99 11/28/22 19:01 O2 Del Method Room Air 11/28/22 19:01 BMI result Body Mass Index 31.4 VITAL SIGNS: Reviewed. GENERAL: well nourished, in no acute distress. HEAD: Normocephalic/atraumatic EYES: PERRLA, entirely blind in the right eye, almost completely blind in the left eye. EARS: Ext canals without abnormality NOSE: Nares patent bilateral OROPHARYNX: no oral lesions noted, posterior pharynx clear NECK: Supple, no adenopathy LUNGS: Normal breath sounds. No adventitious sounds or accessory muscle use. SpO2<100>; CHEST WALL: Port noted to right anterior chest without surrounding erythema or induration CARDIOVASCULAR: Regular rate and rhythm without noted murmurs, no JVD there is bilateral lower extremity 1+ pitting edema ABDOMEN: Soft, non-tender, non-distended with bowel sounds. MUSCULOSKELETAL: No tenderness, deformities, or effusions noted on gross inspection. EXTREMITIES: No cyanosis, clubbing or edema. SKIN: Inspection of the skin reveals no rashes NEUROLOGIC: Alert and oriented x 4. Strength and sensation to light touch were grossly intact x 4. Medications Administered Discontinued Medications Generic Name Dose Route Start Last Admin Trade Name Freq PRN Reason Stop Dose Admin Hydralazine HCl 5 mg 11/28/22 15:49 11/28/22 16:18 Hydralazine Hcl 20 Mg/Ml Vial IVPUSH 11/28/22 15:50 5 mg ONCE ONE Administration Protocol Labetalol HCl 5 mg 11/28/22 19:07 11/28/22 19:53 Labetalol Hcl 100 Mg/20 Ml Vial IVPUSH 11/28/22 19:08 5 mg ONCE ONE Administration Lidocaine/Diphenhydr/Alum/Mg/Simeth 10 ml 11/28/22 17:03 11/28/22 17:11 Mag&Al/Sim/Diphenhyd/Lidocaine 10 Ml Oral.Susp PO 11/28/22 17:04 10 ml ONCE ONE Administration Protocol Nitroglycerin 0.5 inch 11/28/22 14:44 11/28/22 14:57 Nitroglycerin 2 % Oint 1 Gm Packet TRANSDERMA 11/28/22 14:45 0.5 inch ONCE ONE Administration Nitroglycerin 1 inch 11/28/22 16:42 11/28/22 17:11 Nitroglycerin 2 % Oint 1 Gm Packet TRANSDERMA 11/28/22 16:43 1 inch ONCE ONE Administration Medical Decision Making Medical Decision Making [facility] Narrative: 1445: 32-year-old female with ESRD on dialysis and having not received dialysis since last Sunday presents with complaints of shortness of breath and chest pain that radiates to the left side this started at 04:00 o'clock this morning and also describes body aches. DDX: ACS but patient is noted to be hypertensive and has not been able to tolerate oral blood pressure medications and will receive half-inch of nitropaste, viral illness, symptoms associated with no dialysis for 1 week. I did briefly review the EKG which does not demonstrate any acute changes when compared to prior. I reviewed all investigations and patient has chronically stable leukopenia of 4.7 and hand a chronically stable normocytic anemia, there is no thrombocytopenia and there is a chronically stable left shift. Viral testing is negative for COVID-19 and influenza. Coagulation studies demonstrate of PT-14.4 and INR-1.2. Chemistry indices demonstrate a mild dehydration but no hyperkalemia, patient is status post cholecystectomy, patient has chronic ESRD and will reach out to Nephrology for further recommendations. Total bilirubin is chronically elevated but otherwise no liver enzymes are without acute findings, hCG is negative. Although high sensitivity troponin is elevated this is likely reflective of patient's hypertensive state for which she received a half-inch nitropaste, also provided 5 mg of hydralazine and will at this time provide 1 in of nitropaste and removed the half-inch. 1655: I discussed the case with Dr. Siddiqi who recommends admission and schedule for dialysis tomorrow. I reviewed all imaging studies, all laboratory workup and there is no acute evidence of intra-abdominal pathology, patient tolerated the GI cocktail that she received earlier, it is been exceedingly difficult to control her blood pressure and we are continuing to try with a combination of oral medication as well as IV. I have discussed case with inpatient hospitalist who accepts admission. Differential Diagnosis Differential Diagnoses: The differential diagnosis associated with the presentation includes Please see the discussion above Admission/Observation Consideration of admission/observation: Escalation of care including admission/observation considered Please see the discussion above Lab Data MDM Lab Attestation statement: I reviewed the patient's lab results. Please see the discussion above 11/28/22 15:56 11/28/22 15:56 Labs: Lab Results 11/28/22 11/28/22 11/28/22 Range/Units 15:02 15:03 15:56 WBC 4.7 L (4.8-10.8) X10*3/uL RBC 3.31 L (4.20-5.50) X10*6/uL Hgb 9.7 L (12.0-16.0) g/dl Hct 30.7 L (37.0-47.0) % MCV 92.7 (80.0-98.0) fL MCH 29.3 (27.0-33.0) pg MCHC 31.6 (31.0-35.0) g/dl RDW 17.0 H (11.0-16.0) % Plt Count 169 (160-400) X10*3/uL MPV 12.3 (9.4-12.3) fL Immature Gran % (Auto) 0.2 (0.0-0.4) % Neut % (Auto) 74.4 H (45-73) % Lymph % (Auto) 14.2 L (20-40) % [place] % (Auto) 7.6 (2-11) % Eos % (Auto) 3.0 (0-4) % Baso % (Auto) 0.6 (0-2) % Lymph # (Auto) 0.7 L (1.2-4.9) X10*3/uL [place] # (Auto) 0.4 (0.1-1.2) X10*3/uL Eos # (Auto) 0.1 (0.0-0.4) X10*3/uL Baso # (Auto) 0.0 (0.0-0.2) X10*3/uL Abs Immat Gran (auto) 0.01 (0.00-0.03) X10*3/uL Absolute Neuts (auto) 3.5 (2.0-8.3) x10*3/uL Absolute Nucleated RBC 0.000 (0.0-0.012) X10*3/uL Nucleated RBC % (auto) 0.0 (0.0-0.2) /100WBC PT 14.4 H (11.1-13.3) SEC INR 1.2 H (0.9-1.1) Sodium 134 L (135-145) mmol/L Potassium 4.7 (3.3-5.1) mmol/L Chloride 111 H (96-108) mmol/L Carbon Dioxide 13 L (22-29) mmol/L Anion Gap 15 (12-20) BUN 59 H (9-16) mg/dL Creatinine 4.69 H* (0.5-1.4) mg/dL Estim Creat Clear Calc 18.9 Estimated GFR 11 Random Glucose 111 (60-115) mg/dL Calcium 8.7 D (8.4-10.2) mg/dL Magnesium 2.5 (1.6-2.6) mg/dL Total Bilirubin 1.2 H (0.0-1.0) mg/dL AST 22 (5-31) U/L ALT 31 (0-31) U/L Alkaline Phosphatase 106 (39-117) U/L Troponin I High Sens 64.9 H* D (<3.5-17.0) ng/L Total Protein 6.5 (6.5-8.0) g/dL Albumin 2.9 L (3.5-5.0) g/dL Lipase 22 (8-78) U/L Beta HCG, Quant < 2 mIU/mL COVID-19 ([facility]O) Negative (Negative) COVID-19 Clin Com See Note Influenza Type A ([facility]) Negative (Negative) Influenza Type B ([facility]) Negative (Negative) Influenza A & B Note See Note Independent Interpretation I performed an independent interpretation of an: EKG Interpretation: Sinus tachycardia, RBBB at baseline, no STEMI, NE within normal limits, QRS-138 and QTC-503 Radiology Impression Discussion of test interpretation with radiology: I have reviewed the radiologist's reading. Radiologist Impression: Please see the discussion above External Record Review External record reviewed: Outpatient record, Prior outpatient labs and Prior outpatient radiology Critical Care Time Critical Care Time Critical Care Time: Yes Total Critical Care Time: 45 Attestation: I personally attest to this time spent taking care of the patient. Discharge Plan Discharge Clinical Impression: Uncontrolled hypertension, ESRD on dialysis, Chronic pain Patient Disposition: Admitted As Inpatient Prescriptions: No Action hydralazine 25 mg tablet 75 mg PO TID oxycodone 5 mg tablet 5 mg PO Q6H PRN (Reason: severe pain) Qty: 20 0RF atorvastatin 40 mg Tablet 40 mg PO BEDTIME Qty: 90 0RF clopidogrel 75 mg Tablet 75 mg PO DAILY Qty: 90 0RF aspirin 81 mg Tablet,Delayed Release (Dr/Ec) 81 mg PO DAILY Qty: 90 0RF losartan 25 mg Tablet 25 mg PO DAILY Qty: 90 0RF Protocol: Hold for SBP< HOLD for SBP < : 90 omeprazole 40 mg Capsule,Delayed Release(Dr/Ec) 40 mg PO DAILY@0630 Qty: 90 0RF torsemide 20 mg tablet 40 mg PO BID Qty: 180 0RF nifedipine 60 mg tablet extended release 24hr 60 mg PO DAILY Qty: 90 0RF glipizide 2.5 mg tablet extended release 24hr 2.5 mg PO DAILY Qty: 90 0RF ondansetron 4 mg tablet,disintegrating 4 mg PO Q6-8H PRN (Reason: nausea and vomiting) Qty: 7 0RF
[2022-11-28] MEDS: Nitroglycerin 2 % Oint 1 GM Packet 0.5 INCH TRANSDERMA (14:57)
[2022-11-28 15:24] LABS: COVID-19 Test Negative (Negative); IDNOW Serial# BCCEAD1C
[2022-11-28 15:27] LABS: IDNOW Serial# 9DB6401D; Influenza A Negative (Negative); Influenza B2 Negative (Negative)
[2022-11-28 15:31] LABS: HCG Quantitative < 2 mIU/mL
--- NOTE | 2022-11-28 15:45 | PC.NURSE ---
pt is alert and oriented, skin appropriate for ethnicity, respirations even and unlabored , ls clear, dialysis port on the right sided of chest-pt went to dialysis last week on Sunday has not gone at all since then, pt is reporting midsternal chest pain and sob, nasuea and has not been able to keep her medications down do to the vomiting. pt also is reporting all over body pain and itching, lower extremities slightly swollen
[2022-11-28 15:56] LABS: Troponin-I High Sensitivity 64.9 ng/L (<3.5-17.0)
[2022-11-28 16:00] LABS: MANUAL DIFF FLAG NO
[2022-11-28 16:09] LABS: Basophils Percent Auto 0.6 % (0-2); Eosinophils Absolute Auto 0.1 X10*3/uL (0.0-0.4); Hematocrit 30.7 % (37.0-47.0); Hemoglobin 9.7 g/dl (12.0-16.0); Imm Gran Abs Auto 0.01 X10*3/uL (0.00-0.03); Imm Gran Pct Auto 0.2 % (0.0-0.4); Lymphocytes Absolute Auto 0.7 X10*3/uL (1.2-4.9); Lymphocytes Percent Auto 14.2 % (20-40); Mean Corpuscular HGB Conc 31.6 g/dl (31.0-35.0); Mean Corpuscular Hemoglobin 29.3 pg (27.0-33.0); Mean Corpuscular Volume 92.7 fL (80.0-98.0); Mean Platelet Volume 12.3 fL (9.4-12.3); Monocytes Absolute Auto 0.4 X10*3/uL (0.1-1.2); Monocytes Percent Auto 7.6 % (2-11); Neutrophils Absolute Auto 3.5 x10*3/uL (2.0-8.3); Neutrophils Percent Auto 74.4 % (45-73); Platelet Count 169 X10*3/uL (160-400); Red Blood Count 3.31 X10*6/uL (4.20-5.50); White Blood Count 4.7 X10*3/uL (4.8-10.8)
[2022-11-28 16:14] LABS: INTERNATIONAL NORM RATIO 1.2 (0.9-1.1); Prothrombin Time 14.4 SEC (11.1-13.3)
[2022-11-28] MEDS: hydrALAZINE HCl 20 MG/ML VIAL 5 MG IVPUSH (16:18)
[2022-11-28 16:27] LABS: Alanine Aminotransferase 31 U/L (0-31); Albumin Level 2.9 g/dL (3.5-5.0); Alkaline Phosphatase 106 U/L (39-117); Anion Gap 15 (12-20); Aspartate Amino Transferase 22 U/L (5-31); Bilirubin Total 1.2 mg/dL (0.0-1.0); Blood Urea Nitrogen 59 mg/dL (9-16); Calcium 8.7 mg/dL (8.4-10.2); Carbon Dioxide 13 mmol/L (22-29); Chloride 111 mmol/L (96-108); Creatinine Clr Calc Pharmacy 18.9; Estimated Glomerular Filt Rate 11; Glucose Random 111 mg/dL (60-115); Potassium 4.7 mmol/L (3.3-5.1); Sodium 134 mmol/L (135-145); Total Protein 6.5 g/dL (6.5-8.0)
[2022-11-28] MEDS: Mag&Al/Sim/Diphenhyd/Lidocaine 10 ML ORAL.SUSP PO (17:11)
[2022-11-28] MEDS: Nitroglycerin 2 % Oint 1 GM Packet 1 INCH TRANSDERMA (17:11)
[2022-11-28 17:26] LABS: Lipase 22 U/L (8-78); Magnesium 2.5 mg/dL (1.6-2.6)
--- NOTE | 2022-11-28 19:18 | PM.IMHP ---
History of Present Illness Date of Service: 11/28/22 Chief Complaint: missed dialysis, body ache 32 female with PMH of ESRD on HD MWF, CAD, CHF , DM with nephropathy and retinopathy and ligally blind among others. She is non-compliant with meds or dialysis and there's report she may have been kicked out of dialysis due to no shows. She has difficulty to control HTN, she is freqently hospitalized for issues related to dialysis, accelereated HTN and pain. She was last hopitalized here with at the end of September. She presents here today with shortness of breath, diffuse body, including chest pain, nasusea and vomitting. She has not been to dialysis in more than a week. She is found to have extremely elevated blood pressure of 201/121. ED treatment: IV Labetalol 5 and IV Hydralazine 5 Review of Systems Review of Systems: Gen: no fever Resp: no sob, no cough CV: no chest, no SOTELO, no leg edema GI: No n/v, no abd pain Neuro: No confusion, +miller Yes all other systems are reviewed and are negative [facility] Medical History Non-compliance with renal dialysis Hypertension End-stage renal disease (ESRD) Gastroparesis Diabetic foot ulcer associated with type 2 diabetes mellitus Hypertensive emergency Diabetes ESRD needing dialysis Cardiomyopathy HFrEF (heart failure with reduced ejection fraction) Metabolic acidosis delivery delivered Anemia in chronic kidney disease (CKD) CKD (chronic kidney disease) Headache, migraine Abnormal finding on echocardiogram Elevated troponin Chest pain Acute worsening of stage 3 chronic kidney disease Generalized edema Sepsis Cellulitis Pleural effusion CHF (congestive heart failure) (~06/07/22) Tachycardia Atypical chest pain Bone infection PAD (peripheral artery disease) Severe anemia Cellulitis and abscess of foot DM foot ulcer Osteomyelitis test positive test positive Asthma Depression with anxiety Diabetic retinopathy Type 2 diabetes mellitus with hyperglycemia, with long-term current use of insulin Blind right eye Diabetes Back pain Family History Mother Coronary artery disease Myocardial infarction Stroke Diabetes mellitus Father Myocardial infarction Surgical History 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 Social History Household Members: Significant Other and Family Household Members Other:: Sister, Wsbannp-[id number]-Qcs, nephew Housing: Apartment Do you presently have visiting nurse or other home services: Yes (sister is PUBLIC MESSAGE SERVICE SUPERVISOR) Alcohol intake: never Patient Tobacco Use Status: Never used Tobacco Smoked in Last 30 Days: No e-Cigarette/Vaping Use: Never Used Second Hand Smoke Exposure: No Use of substances other than those prescribed or required for medical reasons: No Advance Directives: Yes Advance Directives on File: Yes Advance Directives Date on File: 03/08/20 service: No Current occupational status: unemployed and disabled Gender identity: Female Meds Allergies Allergy/AdvReac Type Severity Reaction Status Date / Time morphine [MORPHINE] Allergy Intermediate Itching Verified 11/28/22 14:51 azithromycin [From Zithromax] Allergy Hives Verified 11/28/22 14:51 gabapentin Allergy Facial Verified 11/28/22 14:51 Swelling tramadol Allergy Facial Verified 11/28/22 14:51 Swelling vancomycin Allergy Hives Verified 11/28/22 14:51 Home Medications Medication Instructions Recorded Confirmed Last Taken Type hydralazine 25 mg tablet 75 mg PO TID 08/25/22 11/28/22 08/24/22 History Physical Exam Vital Signs and Narrative: Vital Signs: Last Vital Signs Temp 98.2 F 11/28/22 14:45 Pulse 110 H 11/28/22 19:01 Resp 16 11/28/22 19:01 BP 201/121 H 11/28/22 19:01 Pulse Ox 99 11/28/22 19:01 O2 Del Method Room Air 11/28/22 19:01 BMI result Body Mass Index 31.4 Const: Other: Constitutional: Alert, in no distress, overweight. Mental Status: Oriented to person, place and time. Eyes: Pupils are equal, round and reactive to light. Ear, Nose and Throat: Oropharynx clear, mucous membranes moist. Ears and nose without eformities. Respiratory: Clear to auscultation. No wheezing, rales or rhonchi. Cardiovascular: S1 S2 regular. No murmurs, rubs or gallops. Gastrointestinal: Abdomen soft, non-tender, non-distended. Normal bowel sounds.? Neurologic: Cranial nerves II-XII grossly intact. No focal neurological deficits. Moves all extremities spontaneously.? Skin: No rashes or lesions.? Musculoskeletal: No cyanosis or clubbing. Psychiatric: Normal mood and affect? Results Labs 11/28/22 15:56 11/28/22 15:56 Labs: Laboratory Results - last 24 hr 11/28/22 11/28/22 11/28/22 15:02 15:03 15:56 MCV 92.7 MCH 29.3 MCHC 31.6 RDW 17.0 H Plt Count 169 MPV 12.3 Immature Gran % (Auto) 0.2 Neut % (Auto) 74.4 H Lymph % (Auto) 14.2 L [place] % (Auto) 7.6 Eos % (Auto) 3.0 Baso % (Auto) 0.6 Lymph # (Auto) 0.7 L [place] # (Auto) 0.4 Eos # (Auto) 0.1 Baso # (Auto) 0.0 Abs Immat Gran (auto) 0.01 Absolute Neuts (auto) 3.5 Absolute Nucleated RBC 0.000 Nucleated RBC % (auto) 0.0 PT 14.4 H INR 1.2 H Anion Gap 15 Estim Creat Clear Calc 18.9 Estimated GFR 11 Random Glucose 111 Calcium 8.7 D Magnesium 2.5 Total Bilirubin 1.2 H AST 22 ALT 31 Alkaline Phosphatase 106 Total Protein 6.5 Albumin 2.9 L Lipase 22 Beta HCG, Quant < 2 COVID-19 ([facility]) Negative COVID-19 Clin Com See Note Influenza Type A ([facility]) Negative Influenza Type B ([facility]) Negative Influenza A & B Note See Note Imaging Radiologist's Impressions: Impressions Chest X-Ray 11/28/22 17:27 IMPRESSION: No focal pneumonia or alveolar edema. Assessment and Plan (1) Accelerated hypertension: Status: Acute (2) Non-compliance with renal dialysis: Status: Acute Plan 32yo F with HTN, chronic HFrEF, DM2 with retinopathy, mood disorder, PAD s/p TMTA, ERSD on HD non-compliant here with body ache, n/v hasn't been to dialysis in more than 1 week Accelerated HTN due to non-compliant with meds -restart home meds -IV meds (hydralizine or Labatalol) for SBP > 190 CDKD 5/ESRD--hasn't shown to dilaysis in more than a week, this is a typical behavior for her. Nephrology aware and plan to dialyse in the morning. Nausea/vomitting due to gastroparesis--Antiemeitc Diabetes--resume home meds, SSI HFrEF--no acute exacerbation, Headache/body ache--chronic, dilaudid prn DVT P: heparin Full code Admission for at least 2 midnights for management of HTN emergency,uremia Time Spent With Patient Time: Total time managing care of this patient today ____ minutes. Quality Stroke Does the patient have a stroke diagnosis?: No VTE Prior VTE?: No VTE Risk Level:: Medical - moderate - high VTE Device Contraindication: Treatment Not Indicated VTE Drug Contraindication: N/A - Med Ordered
[2022-11-28] MEDS: Labetalol HCL 100 MG/20 ML VIAL IVPUSH (19:53)
--- NOTE | 2022-11-28 19:55 | PC.NURSE ---
This RN gave pt 5mg labetolol as ordered
--- NOTE | 2022-11-28 20:01 | PHA.MEDREC ---
Pharmacy Consult ? Medication Reconciliation Pharmacy has completed the medication reconciliation. Patient reported nothing has changed. When ask if I could go through the list to confirm as mutliple medications did not have a recent fill history, but patient reported she wouldn't know the names. Patient states her sister helps her with her medications. When I call patient's sister Josy, she reported patient takes no medications and it has been weeks since shes taken any medications. After discussion about patient's blood pressure she reported patient does takes medications. Sister went through all the medications she had. The following medications were removed from list as patient's sister did not report these medications: - carvedilol 12.5 mg BIDwm last filled 09/05/22 x 60 days - metopclopramide 5 mg daily prn filled 10/07/22 x 30 - ferrocite QD filled 06/23/22 x 90 Cintia Gaytan, JvD
[2022-11-28] MEDS: hydrALAZINE HCl 25 MG TABLET PO (20:11)
[2022-11-28] MEDS: hydrALAZINE HCl 20 MG/ML VIAL IVPUSH (20:11)
[2022-11-28] MEDS: ondansetron HCL 4 MG/2 ML VIAL IVPUSH (20:33)
[2022-11-28] MEDS: HYDROmorphone HCl 2 MG/ML VIAL IVPUSH (20:33)
[2022-11-28 20:41] LABS: Troponin-I High Sensitivity 90.1 ng/L (<3.5-17.0)
--- NOTE | 2022-11-28 21:25 | PC.NURSE ---
cecilia cali report to KIRIT Au and Dr. Kincaid.
--- NOTE | 2022-11-28 22:00 | MHC.EDTECH ---
Pt states she has 700$ epps in her wallet, did not want to count it and did not want it secured with security.
--- NOTE | 2022-11-28 22:14 | PC.NURSE ---
Yesika BETH, called lab to see why results have not been received. Labs drawn at time of IV insertion at approximately
--- NOTE | 2022-11-28 22:36 | MHC.EDTECH ---
Pt vomited one time, yellow liquid, about 150 cc.
[2022-11-28] MEDS: diphenhydrAMINE HCL 50 MG/ML VIAL 25 MG IVPUSH (23:52)
[2022-11-29] VITALS (11 sets, daily range): BP systolic 156–219; BP diastolic 77–130; PULSE 95–114; RESP 11–20; TEMP 36–37; O2SAT 90–98; BMI 31.0; BMI 30.9
--- NOTE | 2022-11-29 | PC.NURSE ---
This RN medicated patient for pain and nausea/vomiting. Patient c/o itching. notified and patient given IV Benadryl as ordered. currently awaiting bed on floor.
[2022-11-29] MEDS: 0.9 % Sodium Chloride Flush 3 ML SYRINGE IVFLUSH ×3 (01:25→22:34)
[2022-11-29] MEDS: hydrALAZINE HCl 20 MG/ML VIAL 10 MG IVPUSH ×2 (02:18→14:37)
[2022-11-29] MEDS: HYDROmorphone HCl 2 MG/ML VIAL IVPUSH ×4 (02:18→22:33)
--- NOTE | 2022-11-29 06:00 | PC.NURSE ---
This RN gave report to Raquel BETH on [facility]. Patient goignt o room 461-1, will be transported by copier field service technician.
[2022-11-29] MEDS: ondansetron HCL 4 MG/2 ML VIAL IVPUSH ×3 (06:15→22:33)
[2022-11-29] MEDS: diphenhydrAMINE HCL 50 MG/ML VIAL 25 MG IVPUSH ×3 (06:20→22:33)
--- NOTE | 2022-11-29 07:21 | PC.NURSE ---
REsumed care of patient, she is currently resting comfortably in bed. Awaiting bed placement at this time, remains NSR on monitor
--- NOTE | 2022-11-29 10:42 | PC.NURSE ---
assumed care for pt. pt had N/V, was given Zofran by privpenny RN at 6:30. pt still has nausea and vomiting, provider notified. pt refused all morning meds. provider made aware
--- NOTE | 2022-11-29 11:45 | P.PNIM_ITS ---
Subjective Subjective Date of Service: 11/29/22 Review of Systems Follow up nausea, vomiting, abd pain, missed dialysis still with nausea and vomiting, mostly just water Physical Exam 2 Vital Signs: Vital Signs: Last Vital Signs Temp 96.9 F 11/29/22 11:11 Pulse 99 11/29/22 11:11 Resp 20 11/29/22 11:11 BP 197/117 H 11/29/22 11:11 Pulse Ox 97 11/29/22 11:11 O2 Del Method Room Air 11/29/22 11:11 BMI result Body Mass Index 30.9 Appearing in no acute distress, blind lung sounds are clear to auscultation heart regular rate rhythm, clear S1, S2 positive bowel sounds, abdomen is soft, nontender neuro patient is alert x3, no focal deficits Objective Data Active Medications Acetaminophen (Acetaminophen 325 Mg Tablet) 650 mg PO Q6H PRN PRN Reason: Pain, Mild (Pain Scale 1-3) Aspirin (Aspirin Enteric Coated 81 Mg Tablet.Dr) 81 mg PO DAILY [facility] Last Admin: 11/29/22 09:36 Dose: Not Given Documented By: LARRY Non-Admin Reason: Patient Refused Atorvastatin Calcium (Atorvastatin Calcium 40 Mg Tablet) 40 mg PO BEDTIME [facility] Clopidogrel Bisulfate (Clopidogrel Bisulfate 75 Mg Tablet) 75 mg PO DAILY [facility] Last Admin: 11/29/22 09:36 Dose: Not Given Documented By: LARRY Non-Admin Reason: Patient Refused Diphenhydramine HCl (Diphenhydramine Hcl 50 Mg/Ml Vial) 25 mg IVPUSH Q6H PRN PRN Reason: ithcyness Last Admin: 11/29/22 06:20 Dose: 25 mg Documented By: KADIE Glipizide (Glipizide Xl 2.5 Mg Tab.Er.24) 2.5 mg PO DAILY [facility] Last Admin: 11/29/22 09:36 Dose: Not Given Documented By: LARRY Non-Admin Reason: Patient Refused Hydralazine HCl (Hydralazine Hcl 20 Mg/Ml Vial) 10 mg IVPUSH Q6H PRN; Protocol PRN Reason: SBP > 190 Last Admin: 11/29/22 02:18 Dose: 10 mg Documented By: SHAR Hydralazine HCl (Hydralazine Hcl 25 Mg Tablet) 75 mg PO TID [facility]; Protocol Last Admin: 11/29/22 09:37 Dose: Not Given Documented By: LARRY Non-Admin Reason: Patient Refused Hydromorphone HCl (Hydromorphone Hcl 2 Mg/Ml Vial) 2 mg IVPUSH Q4H PRN; Protocol PRN Reason: Pain, Severe (Pain Scale 7-10) Last Admin: 11/29/22 06:20 Dose: 2 mg Documented By: KADIE Losartan Potassium (Losartan Potassium 25 Mg Tablet) 25 mg PO DAILY [facility]; Protocol Last Admin: 11/29/22 09:37 Dose: Not Given Documented By: LARRY Non-Admin Reason: Patient Refused Magnesium Hydroxide (Milk Of Magnesia 30 Ml Oral.Susp) 30 ml PO DAILY PRN PRN Reason: Constipation Melatonin (Melatonin 3 Mg Tablet) 6 mg PO BEDTIME PRN PRN Reason: Insomnia Nifedipine (Nifedipine Er 60 Mg Tab.Er.24) 60 mg PO DAILY [facility]; Protocol Last Admin: 11/29/22 09:37 Dose: Not Given Documented By: LARRY Non-Admin Reason: Patient Refused Omeprazole (Omeprazole 40 Mg Capsule.Dr) 40 mg PO DAILY@0630 [facility] Last Admin: 11/29/22 06:24 Dose: Not Given Documented By: KADIE Non-Admin Reason: pt refused/dry heaving Ondansetron HCl (Ondansetron Hcl 4 Mg/2 Ml Vial) 4 mg IVPUSH Q8H PRN PRN Reason: Nausea and Vomiting Last Admin: 11/29/22 06:15 Dose: 4 mg Documented By: KADIE Oxycodone HCl (Oxycodone Hcl Immed Release 5 Mg Tablet) 5 mg PO Q6H PRN PRN Reason: severe pain Sodium Chloride (0.9 % Sodium Chloride Flush 3 Ml Syringe) 3 ml IVFLUSH QSHIFT [facility] Last Admin: 11/29/22 09:36 Dose: Not Given Documented By: LARRY Non-Admin Reason: Patient Refused Torsemide (Torsemide 20 Mg Tablet) 40 mg PO BID [facility]; Protocol Last Admin: 11/29/22 09:37 Dose: Not Given Documented By: LARRY Non-Admin Reason: Patient Refused Labs 11/28/22 15:56 10/03/23 15:56 Labs: Laboratory Results - last 24 hr 11/28/22 11/28/22 11/28/22 15:02 15:03 15:56 MCV 92.7 MCH 29.3 MCHC 31.6 RDW 17.0 H Plt Count 169 MPV 12.3 Immature Gran % (Auto) 0.2 Neut % (Auto) 74.4 H Lymph % (Auto) 14.2 L [place] % (Auto) 7.6 Eos % (Auto) 3.0 Baso % (Auto) 0.6 Lymph # (Auto) 0.7 L [place] # (Auto) 0.4 Eos # (Auto) 0.1 Baso # (Auto) 0.0 Abs Immat Gran (auto) 0.01 Absolute Neuts (auto) 3.5 Absolute Nucleated RBC 0.000 Nucleated RBC % (auto) 0.0 PT 14.4 H INR 1.2 H Anion Gap 15 Estim Creat Clear Calc 18.9 Estimated GFR 11 Random Glucose 111 Calcium 8.7 D Magnesium 2.5 Total Bilirubin 1.2 H AST 22 ALT 31 Alkaline Phosphatase 106 Total Protein 6.5 Albumin 2.9 L Lipase 22 Beta HCG, Quant < 2 COVID-19 ([facility]) Negative COVID-19 Clin Com See Note Influenza Type A ([facility]) Negative Influenza Type B ([facility]) Negative Influenza A & B Note See Note Assessment and Plan (1) Chronic pain: Status: Acute (2) ESRD on dialysis: Status: Acute (3) Uncontrolled hypertension: Status: Acute (4) Non-compliance with renal dialysis: Status: Acute Plan 32yo F with HTN, chronic HFrEF, DM2 with retinopathy, mood disorder, PAD s/p TMTA, ERSD on HD non-compliant here with body ache, n/v hasn't been to dialysis in more than 1 week Accelerated HTN non compliance with medications at home and missed dialysis continue home medications, losartan, Nifedipine, hydralazine IV hydralaxine for SBP > 190 follow BP closely ESRD on dialysis no dialysis in 7 days Nephrology aware, plan for dialysis today Nausea/vomiting due to gastroparesis Antiemetics and support care PPI Diabetes mellitus 2 resume home meds, SSI ada diet HFrEF no acute exacerbation, Headache/body ache chronic, dilaudid prn DVT prophylaxis with heparin Attending Dr. Arora Full code continue hospital stay for management of HTN emergency,uremia requiring inpatient dialysis Time Spent With Patient Time: Total time managing care of this patient today ____ minutes. Quality Stroke Does the patient have a stroke diagnosis?: No VTE Prior VTE?: No VTE Risk Level:: Medical - moderate - high VTE Device Contraindication: Treatment Not Indicated VTE Drug Contraindication: N/A - Med Ordered
--- NOTE | 2022-11-29 11:57 | MHC.CM.PN ---
Addendum entered by Samantha Barron 11/29/22 12:07: PCP DR. CHATMAN AT [facility]. Original Note: IMM DELIVERED VIA TELEPHONE TO SISTER REJI ([phone]) PT IS IN DIALYSIS AND LETHARGIC. WHITE COPY TO BE LEFT AT BEDSIDE. PTUSES W/C FOR MOBILITY AND LIVES WITH HER SISTER REJI WHO IS ALSO HER SALES DEVELOPMENT MANAGER (34 HRS/WEEK DAYTIME, 13HRS AT [facility]) PT ATTENDS HD AT [facility] FOR HD IN THE AFTERNOON. SISTER TRANSPORTS. +COVID [facility]AX + HCP ON FILE DP: HOME, RESUME SALES DEVELOPMENT MANAGER SERVICES AND OP HD. SISTER WILL TRANSPORT. CM WILL CONTINUE TO FOLLOW FOR ANY CHANGE IN DC PLAN/NEEDS.
[2022-11-29] MEDS: Labetalol HCL 100 MG/20 ML VIAL 10 MG IVPUSH (15:13)
[2022-11-30] VITALS (10 sets, daily range): BP systolic 164–215; BP diastolic 68–110; PULSE 96–109; RESP 16–22; TEMP 36.3–36.6; O2SAT 91–97
[2022-11-30] MEDS: hydrALAZINE HCl 20 MG/ML VIAL 10 MG IVPUSH ×3 (01:00→19:54)
--- NOTE | 2022-11-30 02:07 | PC.NURSE ---
pt's B/P was 192/102 medicated with hydralazine 10mg IV at 0100 with good effect B/P down to 165/83 at 0200.
[2022-11-30] MEDS: HYDROmorphone HCl 2 MG/ML VIAL IVPUSH ×5 (03:48→22:39)
[2022-11-30] MEDS: diphenhydrAMINE HCL 50 MG/ML VIAL 25 MG IVPUSH ×3 (04:29→18:31)
[2022-11-30] MEDS: 0.9 % Sodium Chloride Flush 3 ML SYRINGE IVFLUSH ×2 (07:56→12:03)
[2022-11-30 09:38] LABS: Anion Gap 17 (12-20); Blood Urea Nitrogen 37 mg/dL (9-16); Calcium 8.8 mg/dL (8.4-10.2); Carbon Dioxide 22 mmol/L (22-29); Chloride 102 mmol/L (96-108); Creatinine Clr Calc Pharmacy 22.4; Estimated Glomerular Filt Rate 13; Glucose Random 64 mg/dL (60-115); Potassium 3.9 mmol/L (3.3-5.1); Sodium 137 mmol/L (135-145)
--- NOTE | 2022-11-30 09:39 | PM.PNNEP ---
Subjective Subjective Date of Service: 11/30/22 Interval history: Seen and examinedd, events noted HD yesterday ( very non-compliant as has niot gone to outpt HFD unit for past 10 days) C/O Nausea Physical Exam Vital Signs: Vital Signs: Last Vital Signs Temp 97.4 F 11/30/22 07:21 Pulse 109 H 11/30/22 07:21 Resp 20 11/30/22 07:21 BP 187/91 H 11/30/22 07:21 Pulse Ox 91 L 11/30/22 07:21 O2 Del Method Room Air 11/30/22 07:21 BMI result Body Mass Index 30.9 Const: Other: Constitutional: Alert, in no distress, overweight. Mental Status: Oriented to person, place and time. Eyes: Pupils are equal, round and reactive to light. Ear, Nose and Throat: Oropharynx clear, mucous membranes moist. Ears and nose without eformities. Respiratory: Clear to auscultation. No wheezing, rales or rhonchi. Cardiovascular: S1 S2 regular. No murmurs, rubs or gallops. Gastrointestinal: Abdomen soft, non-tender, non-distended. Normal bowel sounds.? Neurologic: Cranial nerves II-XII grossly intact. No focal neurological deficits. Moves all extremities spontaneously.? Skin: No rashes or lesions.? Musculoskeletal: No cyanosis or clubbing. Psychiatric: Normal mood and affect? Objective Data Labs 11/28/22 15:56 11/30/22 09:05 Labs: Laboratory Results - last 24 hr 11/30/22 09:05 Hold Purple Top SEE NOTE Sodium 137 Potassium 3.9 Chloride 102 Carbon Dioxide 22 Anion Gap 17 BUN 37 H Creatinine 3.92 H Estim Creat Clear Calc 22.4 Estimated GFR 13 Random Glucose 64 Calcium 8.8 Procedures Date of Service Date of Service: 11/30/22 Assessment & Plan Assessment and plan (1) Chronic pain: Status: Acute (2) ESRD on dialysis: Status: Acute (3) Uncontrolled hypertension: Status: Acute (4) Non-compliance with renal dialysis: Status: Acute Plan 32yo F with HTN, chronic HFrEF, DM2 with retinopathy, mood disorder, PAD s/p TMTA, ERSD on HD non-compliant here with body ache, n/v hasn't been to dialysis in more than 1 week 1, ESRD: non-compliant; I will try to talk with her sister 2. HTN: rfusing meds 3. DM REC: ok to d/c from renal standpoint; I will call sister and see if she can help with better compliance; cont reg outpt meds Time Spent With Patient Time: Total time managing care of this patient today ____ minutes. Progress Note: Quality Stroke Does the patient have a stroke diagnosis?: No
[2022-11-30 11:35] LABS: Alanine Aminotransferase 23 U/L (0-31); Alkaline Phosphatase 102 U/L (39-117); Aspartate Amino Transferase 16 U/L (5-31); Bilirubin Direct 0.7 mg/dL (0.0-0.5); Bilirubin Total 1.4 mg/dL (0.0-1.0); Lipase 12 U/L (8-78); Total Protein 6.5 g/dL (6.5-8.0)
--- NOTE | 2022-11-30 14:07 | HO.PM.IMPN ---
Subjective Subjective Date of Service: 11/30/22 Interval History: seen and examined this morning follow up for elevated blood pressure, missing HD, N/V patient with persistent nausea and vomiting, reporting epigastric abdominal pain does not want to attempt taking po meds due to feeling this way does not feel that antiemetics are helpful for very long Review of Systems Review of Systems: Yes all other systems are reviewed and are negative Constitutional Constitutional: Denies chills and Denies fever(s) Cardiovascular Cardiovascular: Denies chest pain, Denies palpitations and Denies dyspnea Respiratory Respiratory: Denies cough and Denies dyspnea Gastrointestinal Gastrointestinal: Reports abdominal pain, Reports nausea and Reports vomiting Endocrine Endocrine: Denies palpitations Physical Exam Vital Signs: Vital Signs: Last Vital Signs Temp 97.7 F 11/30/22 10:56 Pulse 100 11/30/22 10:56 Resp 18 11/30/22 10:56 BP 198/102 H 11/30/22 10:56 Pulse Ox 92 11/30/22 10:56 O2 Del Method Room Air 11/30/22 10:56 BMI result Body Mass Index 30.9 Const: Other: currently dry heaving/vomiting General: alert and awake Nutritional Appearance: average body habitus Orientation/consciousness: patient oriented x3 Eyes: Other: blind right eye Chest: Other: access right chest wall Resp: Effort & Inspection: normal respiratory effort, able to speak in complete sentences, no respiratory distress and no use of accessory muscles Cardio: Rate: regular rate GI: Other: mild tenderness epigastric region Inspection: No distended Palpation (GI): Soft to palpation Neuro: General: patient oriented x3, moves all extremities and CN's II-XI intact bilaterally Extrem: Other: transmetatarsal amp left foot, multiple toes amps right foot Objective Data Active Medications Acetaminophen (Acetaminophen 325 Mg Tablet) 650 mg PO Q6H PRN PRN Reason: Pain, Mild (Pain Scale 1-3) Aspirin (Aspirin Enteric Coated 81 Mg Tablet.) 81 mg PO DAILY [facility] Last Admin: 11/30/22 08:13 Dose: Not Given Documented By: SEAN Non-Admin Reason: Patient Refused Atorvastatin Calcium (Atorvastatin Calcium 40 Mg Tablet) 40 mg PO BEDTIME [facility] Last Admin: 11/29/22 21:07 Dose: Not Given Documented By: NURIS Non-Admin Reason: Patient Refused Clopidogrel Bisulfate (Clopidogrel Bisulfate 75 Mg Tablet) 75 mg PO DAILY [facility] Last Admin: 11/30/22 08:13 Dose: Not Given Documented By: SEAN Non-Admin Reason: Patient Refused Diphenhydramine HCl (Diphenhydramine Hcl 50 Mg/Ml Vial) 25 mg IVPUSH Q6H PRN PRN Reason: ithcyness Last Admin: 11/30/22 12:01 Dose: 25 mg Documented By: SEAN Glipizide (Glipizide Xl 2.5 Mg Tab.Er.24) 2.5 mg PO DAILY [facility] Last Admin: 11/30/22 08:13 Dose: Not Given Documented By: SEAN Non-Admin Reason: Patient Refused Hydralazine HCl (Hydralazine Hcl 20 Mg/Ml Vial) 10 mg IVPUSH Q6H PRN; Protocol PRN Reason: SBP > 190 Last Admin: 11/30/22 12:02 Dose: 10 mg Documented By: SEAN Hydralazine HCl (Hydralazine Hcl 25 Mg Tablet) 75 mg PO TID [facility]; Protocol Last Admin: 11/30/22 12:02 Dose: Not Given Documented By: SEAN Non-Admin Reason: Patient Refused Hydromorphone HCl (Hydromorphone Hcl 2 Mg/Ml Vial) 2 mg IVPUSH Q4H PRN; Protocol PRN Reason: Pain, Severe (Pain Scale 7-10) Last Admin: 11/30/22 12:01 Dose: 2 mg Documented By: SEAN Promethazine HCl 12.5 mg/ (Sodium Chloride) 50.5 mls @ 202 mls/hr IV Q4H PRN PRN Reason: Nausea and Vomiting Losartan Potassium (Losartan Potassium 25 Mg Tablet) 25 mg PO DAILY [facility]; Protocol Last Admin: 11/30/22 08:13 Dose: Not Given Documented By: SEAN Non-Admin Reason: Patient Refused Magnesium Hydroxide (Milk Of Magnesia 30 Ml Oral.Susp) 30 ml PO DAILY PRN PRN Reason: Constipation Melatonin (Melatonin 3 Mg Tablet) 6 mg PO BEDTIME PRN PRN Reason: Insomnia Nifedipine (Nifedipine Er 60 Mg Tab.Er.24) 60 mg PO DAILY [facility]; Protocol Last Admin: 11/30/22 08:13 Dose: Not Given Documented By: SEAN Non-Admin Reason: Patient Refused Omeprazole (Omeprazole 40 Mg Deep.) 40 mg PO DAILY@0630 [facility] Last Admin: 11/30/22 05:47 Dose: Not Given Documented By: NURIS Non-Admin Reason: Patient Refused Ondansetron HCl (Ondansetron Hcl 4 Mg/2 Ml Vial) 4 mg IVPUSH Q8H PRN PRN Reason: Nausea and Vomiting Last Admin: 11/29/22 22:33 Dose: 4 mg Documented By: NURIS Oxycodone HCl (Oxycodone Hcl Immed Release 5 Mg Tablet) 5 mg PO Q6H PRN PRN Reason: severe pain Sodium Chloride (0.9 % Sodium Chloride Flush 3 Ml Syringe) 3 ml IVFLUSH QSHIFT [facility] Last Admin: 11/30/22 12:03 Dose: 3 ml Documented By: SEAN Torsemide (Torsemide 20 Mg Tablet) 40 mg PO BID [facility]; Protocol Last Admin: 11/30/22 08:13 Dose: Not Given Documented By: SEAN Non-Admin Reason: Patient Refused Labs 11/28/22 15:56 11/30/22 09:05 Labs: Laboratory Results - last 24 hr 11/30/22 09:05 Hold Purple Top SEE NOTE Anion Gap 17 Estim Creat Clear Calc 22.4 Estimated GFR 13 Random Glucose 64 Calcium 8.8 Total Bilirubin 1.4 H Direct Bilirubin 0.7 H AST 16 ALT 23 Alkaline Phosphatase 102 Total Protein 6.5 Albumin 3.0 L Lipase 12 Assessment and Plan (1) ESRD on dialysis: Status: Acute (2) Uncontrolled hypertension: Status: Acute (3) Non-compliance with renal dialysis: Status: Acute Plan 32yo F with HTN, chronic HFrEF, DM2 with retinopathy, mood disorder, PAD s/p TMTA, ERSD on HD non-compliant here with body ache, n/v hasn't been to dialysis in more than 1 week Accelerated HTN non compliance with medications at home and missed dialysis continue home medications, losartan, Nifedipine, hydralazine - patient refusing continue IV hydralaxine for SBP > 190 bp still elevated due to vomiting as well follow BP closely ESRD on dialysis no dialysis in 7 days s/p HD 11/29 Nausea/vomiting likely due to gastroparesis continue antiemetics, supportive care, PPI lipase, LFTs negative; has had GB removed abdominal US with doppler pending GI consult Diabetes mellitus 2 hold glipizide, follow POCs, cover with SSI ada diet HFrEF no acute exacerbation on torsemide at baseline elevated cardiac enzymes has been higher is past, likely due to decreased clearance from ESRD no chest pain Headache/body ache chronic, dilaudid prn - rec to minimize use of narcotics when able DVT prophylaxis with heparin Attending Dr. Sears Full code continue hospital stay for management of HTN emergency,uremia requiring inpatient dialysis Time Spent With Patient Time: Total time managing care of this patient today ____ minutes. Quality Stroke Does the patient have a stroke diagnosis?: No VTE Prior VTE?: No VTE Risk Level:: Medical - moderate - high VTE Device Contraindication: Treatment Not Indicated VTE Drug Contraindication: N/A - Med Ordered
--- NOTE | 2022-11-30 17:48 | P.CNGI_ITS ---
History of Present Illness Data of Consult Service Date: 11/30/22 Requesting physician: Angela Ulloa Primary Care Provider: Unknown Physician HPI Reason for consult: Nausea and vomiting, gastroparesis Reason for consult: Persistant vomiting, hx of Gastroparesis 32 YF with HTN, CHFrEF,? ESRD on dialysis Sunday,? DM, diabetic retinopathy, peripheral vascular disease, diabetic gastroparesis, chronic hypoxemic respiratory failure on baseline oxygen seen at [facility] [facility] on 11/28/22 with chest discomfort associated with multiple episodes of nausea and vomiting.? Pt has a hx of non-compliance with meds or dialysis and there's report she may have been kicked out of dialysis due to no shows. She has difficult to control HTN, she is freqently hospitalized for issues related to dialysis, accelerated HTN, pain, nausea and vomiting. She has not been to dialysis in more than a week - pt reports the dialysis center refused to take her since she was late. Patient reports having 10/05 upper abdominal pain radiating to the back and associated with significant nausea vomiting.? Pt states she has not been able to take any PO diet today 10/21/[address] SCAN SHOWED: 1. No acute findings. 2. Stable generalized lymphadenopathy as above. 3. Stable right-sided pleural effusion. 10/05/[address] SCAN SHOWED: 1.? No acute findings in the abdomen or pelvis. No inflammatory changes. 2.? Numerous bilateral nonobstructing renal calculi. 3.? Small right-sided pleural effusion. 08/28/22 UGI SHOWED: Exam is limited due to patient mobility. There is delayed passage of oral contrast through the stomach. There is no evidence of mechanical obstruction/gastric outlet obstruction. There may be delayed gastric emptying. There is contrast collection with surrounding radiating folds suggestive of an ulcer in the body of the stomach. The stomach and duodenum are otherwise normal. 09/01/22 EGD WAS PERFORMED BY DR BENNETT: Esophagus: GE junction at 43? cm, diaphragm hiatus at 43 cm, irregular Z line with possible barretts Stomach: Patchy gastric erythema. Biopsies were obtained. Grade 2 flap valve on retroflexed examination of the cardia. Large amount of food in the stomach. No ulcer or mass seen Duodenum: Unable to enter due to food blocking pylorus, Impression/Findings: gastroparesis posisble barretts PLAN: Iv erythromycin 250 mg q8h for 48 hr with reglan and relistor, watch QTc, optimize lytes repeat EGD in near future if H pylori pos then treat cont with PPI PMFSH Past Medical History Medical History Gastroparesis Non-compliance with renal dialysis Hypertension End-stage renal disease (ESRD) Diabetic foot ulcer associated with type 2 diabetes mellitus Hypertensive emergency Diabetes ESRD needing dialysis Cardiomyopathy HFrEF (heart failure with reduced ejection fraction) Metabolic acidosis delivery delivered Anemia in chronic kidney disease (CKD) CKD (chronic kidney disease) Headache, migraine Abnormal finding on echocardiogram Elevated troponin Chest pain Acute worsening of stage 3 chronic kidney disease Generalized edema Sepsis Cellulitis Pleural effusion CHF (congestive heart failure) (~06/07/22) Tachycardia Atypical chest pain Bone infection PAD (peripheral artery disease) Severe anemia Cellulitis and abscess of foot DM foot ulcer Osteomyelitis test positive test positive Asthma Depression with anxiety Diabetic retinopathy Type 2 diabetes mellitus with hyperglycemia, with long-term current use of insulin Blind right eye Diabetes Back pain Family History Family History Mother Coronary artery disease Myocardial infarction Stroke Diabetes mellitus Father Myocardial infarction Surgical History Surgical History 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 Social History Social History Household Members: Family Household Members Other:: Sister, [id number], nephew Housing: Apartment Do you presently have visiting nurse or other home services: No Alcohol intake: never Patient Tobacco Use Status: Never used Tobacco Smoked in Last 30 Days: No e-Cigarette/Vaping Use: Never Used Second Hand Smoke Exposure: No Use of substances other than those prescribed or required for medical reasons: No Any prior treatment program specific to substance use: No Have you been hit, kicked, punched, or otherwise hurt by someone within the past year? If so, by whom?: No Do you feel safe in your current relationship?: Yes Is there a partner from a previous relationship who is making you feel unsafe now?: No Are you made to feel afraid or neglected: No Advance Directives: No Advance Directives Information Provided: No Advance Directives Date on File: 03/08/20 Do you have thoughts of harming others: None Do you have a plan to hurt others: No Plan Recently lost weight without trying: No Eating poorly because of decreased appetite: No Nutrition Risks: No Nutritional Risk Patient : No : No Poor oral hygiene: No service: No Current occupational status: unemployed and disabled Gender identity: Female Meds Allergies Allergy/AdvReac Type Severity Reaction Status Date / Time morphine [MORPHINE] Allergy Intermediate Itching Verified 11/28/22 14:51 azithromycin [From Zithromax] Allergy Hives Verified 11/28/22 14:51 gabapentin Allergy Facial Verified 11/28/22 14:51 Swelling tramadol Allergy Facial Verified 11/28/22 14:51 Swelling vancomycin Allergy Hives Verified 11/28/22 14:51 Active Medications: Current Medications Acetaminophen (Acetaminophen 325 Mg Tablet) 650 mg PO Q6H PRN PRN Reason: Pain, Mild (Pain Scale 1-3) Aspirin (Aspirin Enteric Coated 81 Mg Tablet.) 81 mg PO DAILY COUNT INCLUDES THE [facility] Last Admin: 11/30/22 08:13 Dose: Not Given Atorvastatin Calcium (Atorvastatin Calcium 40 Mg Tablet) 40 mg PO BEDTIME COUNT INCLUDES THE [facility] Last Admin: 11/29/22 21:07 Dose: Not Given Clopidogrel Bisulfate (Clopidogrel Bisulfate 75 Mg Tablet) 75 mg PO DAILY COUNT INCLUDES THE [facility] Last Admin: 11/30/22 08:13 Dose: Not Given Dextrose (Dextrose 50 % 25 Gm/50 Ml Syringe) 25 gm IVPUSH Q15M PRN; Protocol PRN Reason: per Hypoglycemia Standing Ord. Diphenhydramine HCl (Diphenhydramine Hcl 50 Mg/Ml Vial) 25 mg IVPUSH Q6H PRN PRN Reason: ithcyness Last Admin: 11/30/22 12:01 Dose: 25 mg Glucose (Glucose Gel 15 Gm Gel..Gram.) 15 gm PO Q15M PRN; Protocol PRN Reason: per Hypoglycemia Standing Ord. Hydralazine HCl (Hydralazine Hcl 20 Mg/Ml Vial) 10 mg IVPUSH Q6H PRN; Protocol PRN Reason: SBP > 190 Last Admin: 11/30/22 12:02 Dose: 10 mg Hydralazine HCl (Hydralazine Hcl 25 Mg Tablet) 75 mg PO TID COUNT INCLUDES THE [facility]; Protocol Last Admin: 11/30/22 12:02 Dose: Not Given Hydromorphone HCl (Hydromorphone Hcl 2 Mg/Ml Vial) 2 mg IVPUSH Q4H PRN; Protocol PRN Reason: Pain, Severe (Pain Scale 7-10) Last Admin: 11/30/22 16:31 Dose: 2 mg Promethazine HCl 12.5 mg/ (Sodium Chloride) 50.5 mls @ 202 mls/hr IV Q4H PRN PRN Reason: Nausea and Vomiting Insulin Human Lispro (Insulin Lispro 100 Unit/Ml 3 Ml Vial) 0 unit SUBCUT QIDACHS COUNT INCLUDES THE [facility]; Protocol Last Admin: 11/30/22 15:55 Dose: Not Given Losartan Potassium (Losartan Potassium 25 Mg Tablet) 25 mg PO DAILY COUNT INCLUDES THE [facility]; Protocol Last Admin: 11/30/22 08:13 Dose: Not Given Magnesium Hydroxide (Milk Of Magnesia 30 Ml Oral.Susp) 30 ml PO DAILY PRN PRN Reason: Constipation Melatonin (Melatonin 3 Mg Tablet) 6 mg PO BEDTIME PRN PRN Reason: Insomnia Nifedipine (Nifedipine Er 60 Mg Tab.Er.24) 60 mg PO DAILY COUNT INCLUDES THE [facility]; Protocol Last Admin: 11/30/22 08:13 Dose: Not Given Omeprazole (Omeprazole 40 Mg Capsule.Dr) 40 mg PO DAILY@0630 COUNT INCLUDES THE [facility] Last Admin: 11/30/22 05:47 Dose: Not Given Ondansetron HCl (Ondansetron Hcl 4 Mg/2 Ml Vial) 4 mg IVPUSH Q8H PRN PRN Reason: Nausea and Vomiting Last Admin: 11/29/22 22:33 Dose: 4 mg Oxycodone HCl (Oxycodone Hcl Immed Release 5 Mg Tablet) 5 mg PO Q6H PRN PRN Reason: severe pain Sodium Chloride (0.9 % Sodium Chloride Flush 3 Ml Syringe) 3 [facility] Last Admin: 11/30/22 12:03 Dose: 3 ml Torsemide (Torsemide 20 Mg Tablet) 40 mg PO BID COUNT INCLUDES THE [facility]; Protocol Last Admin: 11/30/22 08:13 Dose: Not Given Physical Exam 2 Vital Signs: Vital Signs: Last Vital Signs Temp 97.9 F 11/30/22 15:39 Pulse 99 11/30/22 17:09 Resp 22 H 11/30/22 15:39 BP 180/88 H 11/30/22 17:09 Pulse Ox 97 11/30/22 15:39 O2 Del Method Room Air 11/30/22 15:39 BMI result Body Mass Index 30.9 Const: General: healthy appearing and no acute distress Nutritional Appearance: obese Orientation/consciousness: patient oriented x3 L imitations: physical limitations and other limitations (Right eye blindness) HEENT: Head: Yes normal to inspection Ears: hearing grossly normal bilaterally Eyes: Sclerae: sclerae normal Pupils: Equal, round and reactive pupils present Neck: Neck: Yes normal visual inspection Chest: Chest palpation & inspection: normal inspection of the chest Resp: Effort & Inspection: normal respiratory effort Auscultation: clear to auscultation bilaterally Cardio: Palpation: normal PMI Rate: regular rate Rhythm: regular rhythm Heart sounds: S1 normal heart sound present, S2 normal heart sound present and no murmurs GI: Palpation (GI): Soft to palpation, Tenderness to palpation present (GI) (moderate diffuse upper abdominal tenderness) and No hepatosplenomegaly present Auscultation: normal bowel sounds Rectal Exam - Female: deferred Skin: General skin exam: no rashes or lesions noted Neuro: General: patient oriented x3, gait normal and moves all extremities Cranial nerves: Yes Equal, round and reactive pupils present Psych: Appearance: grossly normal Mental Status: mental status grossly normal Results Labs 11/28/22 15:56 12/02/22 09:41 Labs: BMP 11/30/22 09:05 Sodium 137 Potassium 3.9 Chloride 102 Carbon Dioxide 22 BUN 37 H Creatinine 3.92 H Calcium 8.8 Liver Function 11/30/22 Range/Units 09:05 Total Bilirubin 1.4 H (0.0-1.0) mg/dL Direct Bilirubin 0.7 H (0.0-0.5) mg/dL AST 16 (5-31) U/L ALT 23 (0-31) U/L Alkaline Phosphatase 102 (39-117) U/L Albumin 3.0 L (3.5-5.0) g/dL Assessment and Plan (1) Nausea & vomiting: Status: Resolved (2) Gastroparesis: Status: Acute (3) Abdominal pain: Status: Inactive Plan 32 YF with HTN, CHFrEF,? ESRD on dialysis Sunday,? DM, diabetic retinopathy, peripheral vascular disease, diabetic gastroparesis, chronic hypoxemic respiratory failure on baseline oxygen seen at [facility] on 11/28/22 with chest discomfort associated with multiple episodes of nausea and vomiting.? Pt has a hx of non-compliance with meds or dialysis and there's report she may have been kicked out of dialysis due to no shows. She has difficult to control HTN, she is freqently hospitalized for issues related to dialysis, accelerated HTN, pain, nausea and vomiting. She has not been to dialysis in more than a week - pt reports the dialysis center refused to take her since she was late. Patient reports having 8/10 upper abdominal pain radiating to the back and associated with significant nausea vomiting.? Pt states she has not been able to take any PO diet today RECOMMENDATIONS: 1. Agree with IV pain medications and antiemetics and PO omeprazole (once pt is able to tolerate PO medications). 2. Proceed with EGD on 12/01/22 _ discussed with the patient and she agrees to having EGD. Time Spent With Patient Time: Total time managing care of this patient today ____ minutes. Procedures Date of Service Date of Service: 12/30/22
[2022-11-30] MEDS: ondansetron HCL 4 MG/2 ML VIAL IVPUSH (18:31)
[2022-12-01] VITALS (11 sets, daily range): BP systolic 109–206; BP diastolic 54–102; PULSE 76–107; RESP 16–20; TEMP 36–36.8; O2SAT 94–98
--- NOTE | 2022-12-01 00:08 | PC.NURSE ---
Patient c/o pain 9/10 - vomiting, BP 215/102. Provider notified PRN Hydralazine administered, POC 60 - followed hypoglycemic protocol, provider ordered IVF. Patient keeps refusing BP checks and POC rechecks. After over an hour patient agreed to recheck. POC 84 at that time, BP still elevated, reported to provider, and order for Labetalol 10mg IV and Ativan received and administered. Patient continues to c/o pain and nausea, provider aware.
[2022-12-01] MEDS: diphenhydrAMINE HCL 50 MG/ML VIAL 25 MG IVPUSH (03:18)
--- NOTE | 2022-12-01 04:53 | PC.NURSE ---
Addendum entered by Annabelle Aylaa RN 12/01/22 06:38: 0522; s/p hydralazine bp recheck 167/89, hr 89 Original Note: 0415; bp 196/95, hr 76. PRN IV hydralazine 10mg administered per apr.
[2022-12-01] MEDS: 0.9 % Sodium Chloride Flush 3 ML SYRINGE IVFLUSH ×2 (08:10→11:50)
--- NOTE | 2022-12-01 13:00 | PC.NURSE ---
Patient back from dialysis at this time- 3.5Kg fluid removed, per dialysis Holly Goss RN.
--- NOTE | 2022-12-01 14:33 | HO.PM.IMPN ---
Subjective Subjective Date of Service: 12/01/22 Interval History: seen and examined this morning follow up for uncontrolled HTN, missed HD, persistent N/V able to tolerate PO meds this am plan for HD and EGD today Review of Systems Follow up nausea, vomiting, abd pain, missed dialysis still with nausea and vomiting, mostly just water Constitutional Constitutional: Denies chills and Denies fever(s) Cardiovascular Cardiovascular: Denies chest pain, Denies palpitations and Denies dyspnea Respiratory Respiratory: Denies cough and Denies dyspnea Gastrointestinal Gastrointestinal: Reports nausea Endocrine Endocrine: Denies palpitations Physical Exam Vital Signs: Vital Signs: Last Vital Signs Temp 97.0 F 12/01/22 14:03 Pulse 98 12/01/22 14:03 Resp 18 12/01/22 14:03 BP 177/93 H 12/01/22 14:03 Pulse Ox 97 12/01/22 14:03 O2 Del Method Room Air 12/01/22 14:03 BMI result Body Mass Index 30.9 Const: Other: appears more comfortable today General: alert and awake Nutritional Appearance: average body habitus Orientation/consciousness: patient oriented x3 Eyes: Other: blind right eye Chest: Other: HD cath right chest wall Resp: Effort & Inspection: normal respiratory effort, able to speak in complete sentences, no respiratory distress and no use of accessory muscles Cardio: Rate: regular rate GI: Inspection: No distended Palpation (GI): Soft to palpation Neuro: General: patient oriented x3, moves all extremities and CN's II-XI intact bilaterally Extrem: Other: transmetatarsal amp left foot, multiple toes amps right foot Objective Data Active Medications Acetaminophen (Acetaminophen 325 Mg Tablet) 650 mg PO Q6H PRN PRN Reason: Pain, Mild (Pain Scale 1-3) Aspirin (Aspirin Enteric Coated 81 Mg Tablet.) 81 mg PO DAILY [facility] Last Admin: 12/01/22 08:09 Dose: 81 mg Documented By: ARPIT Atorvastatin Calcium (Atorvastatin Calcium 40 Mg Tablet) 40 mg PO BEDTIME [facility] Last Admin: 11/30/22 20:23 Dose: Not Given Documented By: BEAU Non-Admin Reason: Patient Condition Contraindication Clopidogrel Bisulfate (Clopidogrel Bisulfate 75 Mg Tablet) 75 mg PO DAILY [facility] Last Admin: 12/01/22 08:10 Dose: 75 mg Documented By: ARPIT Dextrose (Dextrose 50 % 25 Gm/50 Ml Syringe) 25 gm IVPUSH Q15M PRN; Protocol PRN Reason: per Hypoglycemia Standing Ord. Last Admin: 11/30/22 20:17 Dose: 25 gm Documented By: BEAU Diphenhydramine HCl (Diphenhydramine Hcl 50 Mg/Ml Vial) 25 mg IVPUSH Q6H PRN PRN Reason: ithcyness Last Admin: 12/01/22 11:44 Dose: 25 mg Documented By: ARPIT Glucose (Glucose Gel 15 Gm Gel..Gram.) 15 gm PO Q15M PRN; Protocol PRN Reason: per Hypoglycemia Standing Ord. Last Admin: 12/01/22 08:33 Dose: 15 gm Documented By: ARPIT Hydralazine HCl (Hydralazine Hcl 20 Mg/Ml Vial) 10 mg IVPUSH Q6H PRN; Protocol PRN Reason: SBP > 190 Last Admin: 12/01/22 11:42 Dose: 10 mg Documented By: ARPIT Hydralazine HCl (Hydralazine Hcl 25 Mg Tablet) 75 mg PO TID [facility]; Protocol Last Admin: 12/01/22 08:09 Dose: 75 mg Documented By: ARPIT Hydromorphone HCl (Hydromorphone Hcl 2 Mg/Ml Vial) 2 mg IVPUSH Q4H PRN; Protocol PRN Reason: Pain, Severe (Pain Scale 7-10) Last Admin: 12/01/22 11:46 Dose: 2 mg Documented By: ARPIT Promethazine HCl 12.5 mg/ (Sodium Chloride) 50.5 mls @ 202 mls/hr IV Q4H PRN PRN Reason: Nausea and Vomiting Last Admin: 12/01/22 14:27 Dose: 202 mls/hr Documented By: OSMAN Comments: 202 ml Dextrose/Sodium Chloride (D51/2ns) 1,000 mls @ 50 mls/hr IVCONT .Q20H [facility] Stop: 12/01/22 16:14 Last Infusion: 12/01/22 14:16 Dose: Infused Documented By: ARPIT Insulin Human Lispro (Insulin Lispro 100 Unit/Ml 3 Ml Vial) 0 unit SUBCUT QIDACHS [facility]; Protocol Last Admin: 12/01/22 11:49 Dose: Not Given Documented By: ARPIT Non-Admin Reason: No Insulin Coverage Losartan Potassium (Losartan Potassium 25 Mg Tablet) 25 mg PO DAILY [facility]; Protocol Last Admin: 12/01/22 08:09 Dose: 25 mg Documented By: ARPIT Magnesium Hydroxide (Milk Of Magnesia 30 Ml Oral.Susp) 30 ml PO DAILY PRN PRN Reason: Constipation Melatonin (Melatonin 3 Mg Tablet) 6 mg PO BEDTIME PRN PRN Reason: Insomnia Nifedipine (Nifedipine Er 60 Mg Tab.Er.24) 60 mg PO DAILY [facility]; Protocol Last Admin: 12/01/22 08:09 Dose: 60 mg Documented By: ARPIT Omeprazole (Omeprazole 40 Mg Capsule.Dr) 40 mg PO DAILY@0630 [facility] Last Admin: 12/01/22 06:36 Dose: Not Given Ondansetron HCl (Ondansetron Hcl 4 Mg/2 Ml Vial) 4 mg IVPUSH Q8H PRN PRN Reason: Nausea and Vomiting Last Admin: 12/01/22 11:44 Dose: 4 mg Documented By: ARPIT Oxycodone HCl (Oxycodone Hcl Immed Release 5 Mg Tablet) 5 mg PO Q6H PRN PRN Reason: severe pain Last Admin: 12/01/22 08:09 Dose: 5 mg Documented By: ARPIT Sodium Chloride (0.9 % Sodium Chloride Flush 3 Ml Syringe) 3 ml IVFLUSH [facility] Last Admin: 12/01/22 11:50 Dose: 3 ml Documented By: ARPIT Torsemide (Torsemide 20 Mg Tablet) 40 mg PO BID [facility]; Protocol Last Admin: 12/01/22 08:10 Dose: 40 mg Documented By: ARPIT Labs 11/28/22 15:56 11/30/22 09:05 Labs: Laboratory Results - last 24 hr 11/30/22 11/30/22 12/01/22 19:45 21:42 08:08 POC Glucose 60 84 85 12/01/22 12/01/22 13:17 14:11 POC Glucose 86 87 Assessment and Plan (1) ESRD on dialysis: Status: Acute (2) Uncontrolled hypertension: Status: Acute Plan This is a 32yo F with HTN, chronic HFrEF, DM2 with retinopathy, mood disorder, PAD s/p TMTA, ERSD on HD and history of non-compliance here with body ache, n/v and uncontrolled HTN after missing dialysis for 1 week Accelerated HTN r/t non compliance with medications at home and missed dialysis continue home medications, losartan, Nifedipine, hydralazine - patient did take all po meds this am continue IV hydralaxine for SBP > 190 follow BP closely ESRD on dialysis s/p HD 11/29, 12/01 Nausea/vomiting likely due to gastroparesis continue antiemetics, supportive care, PPI lipase, LFTs negative; s/p cholecystectomy abdominal US with doppler negative seen by GI - plan for EGD today Diabetes mellitus 2 hold glipizide, follow POCs, cover with SSI ada diet HFrEF no acute exacerbation continue torsemide elevated cardiac enzymes has been higher is past, likely due to decreased clearance from ESRD no chest pain Headache/body ache chronic, dilaudid prn - rec to minimize use of narcotics when able DVT prophylaxis with heparin Attending Dr. Bess Full code continue hospital stay for management of HTN emergency,uremia requiring inpatient dialysis, persistent N/V Time Spent With Patient Time: Total time managing care of this patient today ____ minutes. Quality Stroke Does the patient have a stroke diagnosis?: No VTE Prior VTE?: No VTE Risk Level:: Medical - moderate - high VTE Device Contraindication: Treatment Not Indicated VTE Drug Contraindication: N/A - Med Ordered
--- NOTE | 2022-12-01 14:39 | PM.PNNEP ---
Subjective Subjective Date of Service: 12/01/22 Interval history: Dialyzed this AM for EGD today Physical Exam Vital Signs: Vital Signs: Last Vital Signs Temp 97.0 F 12/01/22 14:03 Pulse 98 12/01/22 14:03 Resp 18 12/01/22 14:03 BP 177/93 H 12/01/22 14:03 Pulse Ox 97 12/01/22 14:03 O2 Del Method Room Air 12/01/22 14:03 BMI result Body Mass Index 30.9 Const: Other: Constitutional: Alert, in no distress, overweight. Mental Status: Oriented to person, place and time. Eyes: Pupils are equal, round and reactive to light. Ear, Nose and Throat: Oropharynx clear, mucous membranes moist. Ears and nose without eformities. Respiratory: Clear to auscultation. No wheezing, rales or rhonchi. Cardiovascular: S1 S2 regular. No murmurs, rubs or gallops. Gastrointestinal: Abdomen soft, non-tender, non-distended. Normal bowel sounds.? Neurologic: Cranial nerves II-XII grossly intact. No focal neurological deficits. Moves all extremities spontaneously.? Skin: No rashes or lesions.? Musculoskeletal: No cyanosis or clubbing. Psychiatric: Normal mood and affect? Objective Data Labs 11/28/22 15:56 11/30/22 09:05 Labs: Laboratory Results - last 24 hr 11/30/22 11/30/22 12/01/22 19:45 21:42 08:08 POC Glucose 60 84 85 12/01/22 12/01/22 13:17 14:11 POC Glucose 86 87 Procedures Date of Service Date of Service: 12/01/22 Assessment & Plan Assessment and plan (1) Chronic pain: Status: Acute (2) ESRD on dialysis: Status: Acute (3) Uncontrolled hypertension: Status: Acute (4) Non-compliance with renal dialysis: Status: Acute Plan 32yo F with HTN, chronic HFrEF, DM2 with retinopathy, mood disorder, PAD s/p TMTA, ERSD on HD non-compliant here with body ache, n/v hasn't been to dialysis in more than 1 week 1, ESRD: non-compliant with treatments. 2. HTN: rfusing meds at times. 3. DM REC: - HD completed today per [facility] schedule - c/w hydralazine - c/w nifedipine - ok to increase losartan if Hypertension - consider coreg in addition to regimen - stop IVF Time Spent With Patient Time: Total time managing care of this patient today ____ minutes. Progress Note: Quality Stroke Does the patient have a stroke diagnosis?: No
--- NOTE | 2022-12-01 14:50 | PC.NURSE ---
pt wretching in preop. stating she does not want to have egd, wants to reschedule, Dr. Dyllan ÁLVAREZ and Dr. Ladd speaking with pt, advised that long weekend will be unable to do over weekend. medicated with phenergan 12.5mg iv at 1426 with resolution of wretching/vomit. report given to anabel rsoa. pt returned to rm [id number] on monitor.
--- NOTE | 2022-12-01 14:50 | PM.EVENT ---
Event Note Date of Service: 12/01/22 Event Note: Pt brought to the OR for EGD. Pt was retching stated she does not want to have the EGD today - felt scared. She was reassured regarding the procedure and given IV phnergan 12.5 mg IV for retching. Pt continues to refuse. Pt to be transferred back to the floor. Continue IV emetics. If no improvement in nausea and vomiting by tomorrow, can consider adding Reglan 5 mg IV twice a day while monitoring QTC intervals. Time Spent With Patient Time: Total time managing care of this patient today ____ minutes.
--- NOTE | 2022-12-01 14:56 | MHC.CM.PN ---
PER MD ROUNDS, PT NOT MEDICALLY CLEARED FOR DC, RECEIVING HD AND PLAN FOR EGD. DCP REMAINS HOME WITH RESUMPTION OF RESIDENTIAL TREATMENT COUNSELOR CARE AND OUTPATIENT HD
[2022-12-02 04:00] VITALS: BP 155/77; PULSE 95; RESP 16; TEMP 36.1; O2SAT 97
[2022-12-02 08:00] VITALS: BP 151/83; PULSE 98; RESP 20; TEMP 36.6; O2SAT 98
[2022-12-02 10:01] LABS: Anion Gap 13 (12-20); Blood Urea Nitrogen 20 mg/dL (9-16); Calcium 8.3 mg/dL (8.4-10.2); Carbon Dioxide 23 mmol/L (22-29); Chloride 104 mmol/L (96-108); Estimated Glomerular Filt Rate 14; Glucose Random 78 mg/dL (60-115); Potassium 3.5 mmol/L (3.3-5.1); Sodium 136 mmol/L (135-145)
--- NOTE | 2022-12-02 11:08 | PM.PNNEP ---
Subjective Subjective Date of Service: 12/02/22 Interval history: dialyzed yesterday Labs reviewed Physical Exam Vital Signs: Vital Signs: Last Vital Signs Temp 97.9 F 12/02/22 08:00 Pulse 98 12/02/22 08:00 Resp 20 12/02/22 08:00 BP 151/83 H 12/02/22 08:00 Pulse Ox 98 12/02/22 08:00 O2 Del Method Room Air 12/02/22 08:00 BMI result Body Mass Index 30.9 Const: Other: Constitutional: Alert, in no distress, overweight. Mental Status: Oriented to person, place and time. Eyes: Pupils are equal, round and reactive to light. Ear, Nose and Throat: Oropharynx clear, mucous membranes moist. Ears and nose without eformities. Respiratory: Clear to auscultation. No wheezing, rales or rhonchi. Cardiovascular: S1 S2 regular. No murmurs, rubs or gallops. Gastrointestinal: Abdomen soft, non-tender, non-distended. Normal bowel sounds.? Neurologic: Cranial nerves II-XII grossly intact. No focal neurological deficits. Moves all extremities spontaneously.? Skin: No rashes or lesions.? Musculoskeletal: No cyanosis or clubbing. Psychiatric: Normal mood and affect? Objective Data Labs 11/28/22 15:56 12/02/22 09:41 Labs: Laboratory Results - last 24 hr 12/01/22 12/01/22 12/01/22 13:17 14:11 15:38 Hold Purple Top Sodium Potassium Chloride Carbon Dioxide Anion Gap BUN Creatinine Estim Creat Clear Calc Estimated GFR POC Glucose 86 87 74 Random Glucose Calcium 12/01/22 12/02/22 12/02/22 21:24 07:30 09:41 Hold Purple Top SEE NOTE Sodium 136 Potassium 3.5 Chloride 104 Carbon Dioxide 23 Anion Gap 13 BUN 20 H Creatinine 3.67 H Estim Creat Clear Calc 24.0 Estimated GFR 14 POC Glucose 74 115 Random Glucose 78 Calcium 8.3 L Procedures Date of Service Date of Service: 12/02/22 Assessment & Plan Assessment and plan (1) Chronic pain: Status: Acute (2) ESRD on dialysis: Status: Acute (3) Uncontrolled hypertension: Status: Acute (4) Non-compliance with renal dialysis: Status: Acute Plan 32yo F with HTN, chronic HFrEF, DM2 with retinopathy, mood disorder, PAD s/p TMTA, ERSD on HD non-compliant here with body ache, n/v hasn't been to dialysis in more than 1 week 1, ESRD: non-compliant with treatments. 2. HTN: rfusing meds at times. 3. DM REC: - HD per [facility] schedule - c/w hydralazine - c/w nifedipine - c/w Losartan - consider coreg in addition to regimen - no IVF Time Spent With Patient Time: Total time managing care of this patient today ____ minutes. Progress Note: Quality Stroke Does the patient have a stroke diagnosis?: No
[2022-12-02 11:42] VITALS: BP 113/57; PULSE 93; RESP 20; TEMP 36.3; O2SAT 97
[2022-12-02 15:18] VITALS: BP 123/65; PULSE 95; RESP 20; TEMP 36.2; O2SAT 97
--- NOTE | 2022-12-02 15:53 | HO.PM.IMPN ---
Subjective Subjective Date of Service: 12/02/22 Interval History: seen and examined this morning persistent nausea and vomiting after meals declined EGD yesterday, doesn't want compazine, unsure why she doesn't take reglan at home anymore blood pressure better Review of Systems Review of Systems: Yes all other systems are reviewed and are negative Constitutional Constitutional: Denies chills and Denies fever(s) Cardiovascular Cardiovascular: Denies chest pain, Denies palpitations and Denies dyspnea Respiratory Respiratory: Denies cough and Denies dyspnea Gastrointestinal Gastrointestinal: Reports nausea and Reports vomiting Endocrine Endocrine: Denies palpitations Physical Exam Vital Signs: Vital Signs: Last Vital Signs Temp 97.1 F 12/02/22 15:18 Pulse 95 12/02/22 15:18 Resp 20 12/02/22 15:18 BP 123/65 12/02/22 15:18 Pulse Ox 97 12/02/22 15:18 O2 Del Method Room Air 12/02/22 15:18 BMI result Body Mass Index 30.9 Const: General: alert and awake Nutritional Appearance: average body habitus Orientation/consciousness: patient oriented x3 Eyes: Other: blind right eye Chest: Other: HD cath right chest wall Resp: Effort & Inspection: normal respiratory effort, able to speak in complete sentences, no respiratory distress and no use of accessory muscles Cardio: Rate: regular rate GI: Inspection: No distended Palpation (GI): Soft to palpation and nontender Neuro: General: patient oriented x3, moves all extremities and CN's II-XI intact bilaterally Extrem: Other: transmetatarsal amp left foot, multiple toes amps right foot Objective Data Active Medications Acetaminophen (Acetaminophen 325 Mg Tablet) 650 mg PO Q6H PRN PRN Reason: Pain, Mild (Pain Scale 1-3) Aspirin (Aspirin Enteric Coated 81 Mg Tablet.) 81 mg PO DAILY [facility] Last Admin: 12/02/22 08:28 Dose: Not Given Documented By: SEAN Non-Admin Reason: Patient Refused Atorvastatin Calcium (Atorvastatin Calcium 40 Mg Tablet) 40 mg PO BEDTIME [facility] Last Admin: 12/01/22 22:14 Dose: Not Given Documented By: ARDEN Non-Admin Reason: Patient Refused Clopidogrel Bisulfate (Clopidogrel Bisulfate 75 Mg Tablet) 75 mg PO DAILY [facility] Last Admin: 12/02/22 08:28 Dose: Not Given Documented By: SEAN Non-Admin Reason: Patient Refused Dextrose (Dextrose 50 % 25 Gm/50 Ml Syringe) 25 gm IVPUSH Q15M PRN; Protocol PRN Reason: per Hypoglycemia Standing Ord. Last Admin: 11/30/22 20:17 Dose: 25 gm Documented By: BEAU Diphenhydramine HCl (Diphenhydramine Hcl 50 Mg/Ml Vial) 25 mg IVPUSH Q6H PRN PRN Reason: ithcyness Last Admin: 12/02/22 14:43 Dose: 25 mg Documented By: SEAN Glucose (Glucose Gel 15 Gm Gel..Gram.) 15 gm PO Q15M PRN; Protocol PRN Reason: per Hypoglycemia Standing Ord. Last Admin: 12/01/22 16:33 Dose: 15 gm Documented By: ARPIT Hydralazine HCl (Hydralazine Hcl 20 Mg/Ml Vial) 10 mg IVPUSH Q6H PRN; Protocol PRN Reason: SBP > 190 Last Admin: 12/01/22 11:42 Dose: 10 mg Documented By: ARPIT Hydralazine HCl (Hydralazine Hcl 25 Mg Tablet) 75 mg PO TID [facility]; Protocol Last Admin: 12/02/22 08:31 Dose: Not Given Documented By: SEAN Non-Admin Reason: Patient Refused Hydromorphone HCl (Hydromorphone Hcl 2 Mg/Ml Vial) 1 mg IVPUSH Q4H PRN; Protocol PRN Reason: Pain, Severe (Pain Scale 7-10) Last Admin: 12/02/22 14:42 Dose: 1 mg Documented By: SEAN Promethazine HCl 12.5 mg/ (Sodium Chloride) 50.5 mls @ 202 mls/hr IV Q4H PRN PRN Reason: Nausea and Vomiting Last Infusion: 12/01/22 15:02 Dose: Infused Documented By: ARPIT Insulin Human Lispro (Insulin Lispro 100 Unit/Ml 3 Ml Vial) 0 unit SUBCUT QIDACHS [facility]; Protocol Last Admin: 12/02/22 11:39 Dose: Not Given Documented By: SEAN Non-Admin Reason: No Insulin Coverage Losartan Potassium (Losartan Potassium 25 Mg Tablet) 25 mg PO DAILY [facility]; Protocol Last Admin: 12/02/22 08:28 Dose: Not Given Documented By: SEAN Non-Admin Reason: Patient Refused Magnesium Hydroxide (Milk Of Magnesia 30 Ml Oral.Susp) 30 ml PO DAILY PRN PRN Reason: Constipation Melatonin (Melatonin 3 Mg Tablet) 6 mg PO BEDTIME PRN PRN Reason: Insomnia Metoclopramide HCl (Metoclopramide Hcl 5 Mg Tablet) 5 mg PO TIDAC [facility] Nifedipine (Nifedipine Er 60 Mg Tab.Er.24) 60 mg PO DAILY [facility]; Protocol Last Admin: 12/02/22 08:28 Dose: Not Given Documented By: SEAN Non-Admin Reason: Patient Refused Omeprazole (Omeprazole 40 Mg Capsule.Dr) 40 mg PO DAILY@0630 [facility] Last Admin: 12/02/22 06:31 Dose: Not Given Documented By: MARIE Non-Admin Reason: Patient Refused Ondansetron HCl (Ondansetron Hcl 4 Mg/2 Ml Vial) 4 mg IVPUSH Q8H PRN PRN Reason: Nausea and Vomiting Last Admin: 12/02/22 08:27 Dose: 4 mg Documented By: SEAN Oxycodone HCl (Oxycodone Hcl Immed Release 5 Mg Tablet) 5 mg PO Q6H PRN PRN Reason: severe pain Last Admin: 12/01/22 08:09 Dose: 5 mg Documented By: ARPIT Sodium Chloride (0.9 % Sodium Chloride Flush 3 Ml Syringe) [facility] Last Admin: 12/02/22 08:28 Dose: 3 ml Documented By: SEAN Torsemide (Torsemide 20 Mg Tablet) 40 mg PO BID [facility]; Protocol Last Admin: 12/02/22 08:28 Dose: Not Given Documented By: SEAN Non-Admin Reason: Patient Refused Labs 11/28/22 15:56 12/02/22 09:41 Labs: Laboratory Results - last 24 hr 12/01/22 12/02/22 12/02/22 21:24 07:30 09:41 Hold Purple Top SEE NOTE Anion Gap 13 Estim Creat Clear Calc 24.0 Estimated GFR 14 POC Glucose 74 115 Random Glucose 78 Calcium 8.3 L 12/02/22 11:17 Hold Purple Top Anion Gap Estim Creat Clear Calc Estimated GFR POC Glucose 109 Random Glucose Calcium Assessment and Plan (1) Gastroparesis: Status: Acute (2) Chronic pain: Status: Acute (3) ESRD on dialysis: Status: Acute (4) Uncontrolled hypertension: Status: Acute Plan This is a 32yo F with HTN, chronic HFrEF, DM2 with retinopathy, mood disorder, PAD s/p TMTA, ERSD on HD and history of non-compliance here with body ache, n/v and uncontrolled HTN after missing dialysis for 1 week Accelerated HTN r/t non compliance with medications at home and missed dialysis continue home medications, losartan, Nifedipine, hydralazine - patient did take all po meds this am continue IV hydralaxine for SBP > 190 follow BP closely ESRD on dialysis s/p HD 11/29, 12/01 Nausea/vomiting likely due to gastroparesis continue antiemetics, supportive care, PPI lipase, LFTs negative; s/p cholecystectomy abdominal US with doppler negative seen by GI- had planned for EGD 12/01 but refused after they brought her down to OR will resume premeal reglan wean narcotics as this is likely contributing Diabetes mellitus 2 hold glipizide, follow POCs, cover with SSI ada diet HFrEF no acute exacerbation continue torsemide elevated cardiac enzymes has been higher is past, likely due to decreased clearance from ESRD no chest pain d/w cardiology some ekg changes likely r/t LV strain from uncontrolled HTN Headache/body ache chronic, dilaudid prn - rec to minimize use of narcotics when able DVT prophylaxis with heparin Attending Dr. Shepherd Full code continue hospital stay for management of HTN emergency,uremia requiring inpatient dialysis, persistent N/V Time Spent With Patient Time: Total time managing care of this patient today ____ minutes. Quality Stroke Does the patient have a stroke diagnosis?: No VTE Prior VTE?: No VTE Risk Level:: Medical - moderate - high VTE Device Contraindication: Treatment Not Indicated VTE Drug Contraindication: N/A - Med Ordered
[2022-12-02 19:07] VITALS: BP 114/59; PULSE 95; RESP 20; TEMP 36.4; O2SAT 98
[2022-12-02 21:28] VITALS: RESP 14
[2022-12-03] VITALS (7 sets, daily range): BP systolic 138–153; BP diastolic 74–82; PULSE 90–98; RESP 16–20; TEMP 36–36.6; O2SAT 97
--- NOTE | 2022-12-03 11:17 | PM.PNNEP ---
Subjective Subjective Date of Service: 12/03/22 Interval history: continues to dictate care Physical Exam Vital Signs: Vital Signs: Last Vital Signs Temp 96.9 F 12/03/22 07:37 Pulse 96 12/03/22 07:37 Resp 20 12/03/22 07:37 BP 139/79 12/03/22 07:37 Pulse Ox 97 12/03/22 09:00 O2 Del Method Room Air 12/03/22 09:00 BMI result Body Mass Index 30.9 Const: Other: Constitutional: Alert, in no distress, overweight. Mental Status: Oriented to person, place and time. Eyes: Pupils are equal, round and reactive to light. Ear, Nose and Throat: Oropharynx clear, mucous membranes moist. Ears and nose without eformities. Respiratory: Clear to auscultation. No wheezing, rales or rhonchi. Cardiovascular: S1 S2 regular. No murmurs, rubs or gallops. Gastrointestinal: Abdomen soft, non-tender, non-distended. Normal bowel sounds.? Neurologic: Cranial nerves II-XII grossly intact. No focal neurological deficits. Moves all extremities spontaneously.? Skin: No rashes or lesions.? Musculoskeletal: No cyanosis or clubbing. Psychiatric: Normal mood and affect? Objective Data Labs 11/28/22 15:56 12/02/22 09:41 Labs: Laboratory Results - last 24 hr 12/02/22 12/02/22 12/02/22 11:17 15:58 20:50 POC Glucose 109 119 H 99 Procedures Date of Service Date of Service: 12/03/22 Assessment & Plan Assessment and plan (1) Chronic pain: Status: Acute (2) ESRD on dialysis: Status: Acute (3) Uncontrolled hypertension: Status: Acute (4) Non-compliance with renal dialysis: Status: Acute Plan 32yo F with HTN, chronic HFrEF, DM2 with retinopathy, mood disorder, PAD s/p TMTA, ERSD on HD non-compliant here with body ache, n/v hasn't been to dialysis in more than 1 week 1, ESRD: non-compliant with treatments. 2. HTN: rfusing meds at times. 3. DM REC: - HD per [facility] schedule - c/w hydralazine - c/w nifedipine - c/w Losartan - consider coreg in addition to regimen - no IVF Time Spent With Patient Time: Total time managing care of this patient today ____ minutes. Progress Note: Quality Stroke Does the patient have a stroke diagnosis?: No
--- NOTE | 2022-12-03 11:24 | PM.DS ---
DS: Providers Provider Date of Service: 12/03/22 Date of admission: 11/28/22 20:08 Date of discharge: 12/03/22 Primary care physician: Unknown Physician Consults: 11/28/22 19:21 Consult to Nephrology Routine Consulting Provider: Fernando Siddiqi Reason for consultation: Accelerated HTN, missed dialysis Has provider been notified: Yes 11/30/22 12:26 Consult to Gastroenterology Routine Consulting Provider: Phillip Mijares Reason for consultation: persistent N/V Has provider been notified: No Attending physician on discharge: Cheyenne Sears Discharging clinician: Angela Ulloa DS: Diagnosis Discharge Diagnosis (1) Uncontrolled hypertension: Status: Acute (2) Chronic pain: Status: Acute (3) ESRD on dialysis: Status: Acute (4) Non-compliance with renal dialysis: Status: Acute (5) Nausea & vomiting: Status: Resolved DS: Summary Hospital Course Hospital Course: From H&P on day of admission 32 female with PMH of ESRD on HD MWF, CAD, CHF , DM with nephropathy and retinopathy and ligally blind among others. She is non-compliant with meds or dialysis and there's report she may have been kicked out of dialysis due to no shows. She has difficulty to control HTN, she is freqently hospitalized for issues related to dialysis, accelereated HTN and pain. She was last hopitalized here with at the end of September. She presents here today with shortness of breath, diffuse body, including chest pain, nasusea and vomitting. She has not been to dialysis in more than a week. She is found to have extremely elevated blood pressure of 201/121. ED treatment: IV Labetalol 5 and IV Hydralazine 5 Accelerated HTN. Related to non compliance with medications at home and missed dialysis. She was continued on home medications, losartan, Nifedipine, hydralazine which she refused during most of her hospitalization. Her blood pressure improved somewhat with 2 sessions of dialysis. For nausea and vomiting this is likely secondary to gastroparesis, she received some antiemetics but refused Phenergan most of the time, did not want Compazine and stated that Zofran did not work. Her lipase and LFTs were unremarkable. She was seen by GI and planned for EGD on December 01 but she refused after they brought her down to the OR. She was resumed on pre meal Raglan for probable gastroparesis and for nausea/vomiting seem to improve, she was able to tolerate a diet and her medications this morning. She is encouraged to take her medications as prescribed and to go to dialysis as scheduled on Sunday, Sunday, Sunday. Her last dialysis was SundayDecember 01. Cardiac enzymes noted to be slightly elevated, chronically elevated and have been higher in the past. She denied chest pain and elevated levels likely from decreased clearance from ESRD and uncontrolled HTN. discussed with cardiology ekg likely represents LV strain from uncontrolled HTN, nothing further to be done. Recommend outpatient follow up with nephrology, and PCP. Time Spent with Patient Time attestation: Total time managing care of this patient today ____ minutes. Discharge coordination time: Greater than 30 minutes Quality: Safe Use of Opioids Does Pt have an Active Cancer Diagnosis on the Problem List?: No Quality: Stroke Does the patient have a stroke diagnosis?: No Physical Exam Vital Signs: Vital Signs: Last Vital Signs Temp 96.9 F 12/03/22 07:37 Pulse 96 12/03/22 07:37 Resp 20 12/03/22 07:37 BP 139/79 12/03/22 07:37 Pulse Ox 97 12/03/22 09:00 O2 Del Method Room Air 12/03/22 09:00 BMI result Body Mass Index 30.9 Const: General: cooperative, comfortable, no acute distress, alert and awake Nutritional Appearance: average body habitus Orientation/consciousness: patient oriented x3 Eyes: Other: blind right eye Chest: Other: HD cath right chest wall Resp: Effort & Inspection: normal respiratory effort, able to speak in complete sentences, no respiratory distress and no use of accessory muscles Cardio: Rate: regular rate GI: Inspection: No distended Palpation (GI): Soft to palpation and nontender Neuro: General: patient oriented x3, moves all extremities and CN's II-XI intact bilaterally Extrem: Other: transmetatarsal amp left foot, multiple toes amps right foot DS: Data Data Completed and Pending Completed studies during hospitalization [Text1]: Procedures Detachment at Right Foot, Partial 1st Ray, Open Approach (03/01/20) Detachment at Right Foot, Partial 2nd Ray, Open Approach (03/01/20) Detachment at Right Foot, Partial 3rd Ray, Open Approach (03/01/20) Detachment at Right Foot, Partial 4th Ray, Open Approach (03/01/20) Detachment at Right Foot, Partial 5th Ray, Open Approach (03/01/20) Drainage of Right Pleural Cavity, Percutaneous Approach (01/14/21) Excision of Left Foot Skin, External Approach (10/22/22) Excision of Stomach, Pylorus, Via Natural or Artificial Opening Endoscopic, Diagnostic (08/27/22) Fluoroscopy of Superior Vena Cava, Guidance (08/14/22) Insertion of Infusion Device into Right Atrium, Percutaneous Approach (08/14/22) Insertion of Infusion Device into Superior Vena Cava, Percutaneous Approach (01/14/21) Insertion of Tunneled Vascular Access Device into Chest Subcutaneous Tissue and Fascia, Percutaneous Approach (08/14/22) Performance of Urinary Filtration, Intermittent, Less than 6 Hours Per Day (10/22/22) Removal of Infusion Device from Great Vessel, External Approach (01/14/21) Transfusion of Nonautologous Red Blood Cells into Peripheral Vein, Percutaneous Approach (04/22/22) Labs on day of discharge: Laboratory Results - last 24 hr 12/02/22 12/02/22 15:58 20:50 POC Glucose 119 H 99 Discharge Plan Discharge Anticipated Discharge Date/Time: 12/03/22 11:16 Patient Disposition: Home, Self-Care Discharge Diagnosis: uncontrolled HTN ESRD on HD nausea and vomiting Referrals: Phillip Mijares MD [Physician] - 1 Week Physician,Kira J [Primary Care Provider] - 1 Week Discharge Medications: New metoclopramide HCl 5 mg Tablet 5 mg PO TIDAC 30 Days Qty: 90 0RF Continued hydralazine 25 mg tablet 75 mg PO TID oxycodone 5 mg tablet 5 mg PO Q6H PRN (Reason: severe pain) Qty: 20 0RF atorvastatin 40 mg Tablet 40 mg PO BEDTIME Qty: 90 0RF clopidogrel 75 mg Tablet 75 mg PO DAILY Qty: 90 0RF aspirin 81 mg Tablet,Delayed Release (Dr/Ec) 81 mg PO DAILY Qty: 90 0RF losartan 25 mg Tablet 25 mg PO DAILY Qty: 90 0RF Protocol: Hold for SBP< HOLD for SBP < : 90 omeprazole 40 mg Capsule,Delayed Release(Dr/Ec) 40 mg PO DAILY@0630 Qty: 90 0RF torsemide 20 mg tablet 40 mg PO BID Qty: 180 0RF nifedipine 60 mg tablet extended release 24hr 60 mg PO DAILY Qty: 90 0RF glipizide 2.5 mg tablet extended release 24hr 2.5 mg PO DAILY Qty: 90 0RF Discontinued ondansetron 4 mg tablet,disintegrating 4 mg PO Q6-8H PRN (Reason: nausea and vomiting) Qty: 7 0RF Discharge Orders: Discharge Order (Routine); Ordered 12/03/22 Ordered By: Angela Ulloa Activity on Discharge: As tolerated Stand Alone Forms: Patient Portal Discharge page Care Plan Goals: see below Health Concerns: ESRD on HD - missed HD uncontrolled HTN chronic pain nausea and vomiting Plan of Treatment: Take all medications as prescribed Can use Reglan prior to meals to assist with nausea/vomiting likely related to gastroparesis Would recommend outpatient follow-up with GI as you declined endoscopy during admission. may need formal gastric emptying study Go to dialysis Sunday, Sunday, Sunday as scheduled. do not skip dialysis sessions Call to schedule follow up with PCP Assessment: see discharge summary Discharge Date/Time: 12/03/22 12:44
--- NOTE | 2022-12-03 11:48 | MHC.CM.PN ---
Patient has been medically cleared fir dc to home today, self care. CM addressed IMM at bedside, with Patient, who did not open her eyes but did respond affirmatively/verbally to IMM being left for her.
== END 2022-12-03 12:44 | disposition home or self-care (01) | DRG 291 ==
LOC: HO.ED 20:08 → HO.EDOVER 20:21 → HO.IMC 11-29 05:47
PROVIDERS: Nurse Practitioner Acute Care; Admitting Provider Internal Medicine; Emergency Provider Student in an Organized Health Care Education/Training Program; PCP Internal Medicine; Visit Provider Physician Assistant Medical
DX: I13.2 Hypertensive heart and chronic kidney disease with heart failure and with stage 5 chronic kidney disease, or end stage renal disease (principal); N18.6 End stage renal disease; E11.22 Type 2 diabetes mellitus with diabetic chronic kidney disease; I50.22 Chronic systolic (congestive) heart failure; I25.10 Atherosclerotic heart disease of native coronary artery without angina pectoris; H54.8 Legal blindness, as defined in USA; E11.319 Type 2 diabetes mellitus with unspecified diabetic retinopathy without macular edema; G89.29 Other chronic pain; E11.51 Type 2 diabetes mellitus with diabetic peripheral angiopathy without gangrene; E11.43 Type 2 diabetes mellitus with diabetic autonomic (poly)neuropathy; K31.84 Gastroparesis; Z20.822 Contact with and (suspected) exposure to COVID-19; Z91.148 Patient's other noncompliance with medication regimen for other reason; Z99.2 Dependence on renal dialysis; Z91.158 Patient's noncompliance with renal dialysis for other reason; Z79.82 Long term (current) use of aspirin; Z79.02 Long term (current) use of antithrombotics/antiplatelets; Z79.84 Long term (current) use of oral hypoglycemic drugs; Z79.899 Other long term (current) drug therapy
CPT/HCPCS: 36415; 71046; 76700; 80048; 80053; 80076; 82947; 83690; 83735; 84484; 84702; 85025; 85610; 87502; 87635; 90999; 93005; 93976; 99285; J1170; J1200; J2060; J2405; J2550

== ENCOUNTER → 2022-11-28 20:08 | Outpatient (BNV) | payer OTHER, SELFPAY | PROVIDERS: Admitting Provider Internal Medicine; Emergency Provider Student in an Organized Health Care Education/Training Program; Visit Provider Nurse Practitioner Acute Care | DX: I12.0 Hypertensive chronic kidney disease with stage 5 chronic kidney disease or end stage renal disease (principal); N18.6 End stage renal disease; Z99.2 Dependence on renal dialysis; G89.29 Other chronic pain; Z91.158 Patient's noncompliance with renal dialysis for other reason; R11.2 Nausea with vomiting, unspecified | CPT/HCPCS: 99223; 99232; 99233; 99239 ==

== ENCOUNTER → 2022-11-28 20:08 | Outpatient (BNV) | payer OTHER, SELFPAY | PROVIDERS: Admitting Provider Internal Medicine; Emergency Provider Student in an Organized Health Care Education/Training Program; Visit Provider Internal Medicine Gastroenterology | DX: R11.2 Nausea with vomiting, unspecified (principal); K31.84 Gastroparesis; R10.9 Unspecified abdominal pain | CPT/HCPCS: 99233; 99499 ==

== ENCOUNTER 2022-12-17 13:42 | Inpatient (IN) | payer OTHER, SELFPAY ==
[2022-12-17] VITALS (7 sets, daily range): BP systolic 173–212; BP diastolic 93–126; PULSE 100–109; RESP 15–20; TEMP 36.5–37.4; O2SAT 97–99; BMI 27.4
--- NOTE | ~2022-12-17 | CT_ITS ---
EXAMINATION: CT ABDOMEN AND PELVIS WITHOUT CONTRAST CLINICAL INFORMATION: Left flank pain. COMPARISON: Abdominal ultrasound 11/30/2022. TECHNIQUE: Multidetector volumetric imaging was performed from the superior aspect of the liver through the pubic symphysis. Sagittal and coronal reformatted images were obtained on the technologist's workstation. This CT examination was performed using dose optimization techniques as appropriate, variously including the following: *Automated exposure control *Adjustment of mA and/or kV according to patient size (this includes techniques or standardized protocols for targeted exams where dose is matched to indication/reason for exam; i.e. extremities or head) *Use of iterative reconstruction technique DLP: 581 mGy-cm FINDINGS: LUNG BASES: Moderate simple right pleural effusion. The tip of the dialysis catheter is seen in the proximal right atrium. Trace pericardial effusion. LIVER, GALLBLADDER, AND BILIARY TREE: The liver is enlarged measuring 21 cm. No discrete hepatic mass. No ductal dilatation. Cholecystectomy. PANCREAS: No discrete mass or ductal dilatation. SPLEEN: Normal size spleen. ADRENAL GLANDS: No adrenal mass. KIDNEYS AND URETERS: Vascular calcification limits assessment for small calculi. No definite renal calculi. No hydroureteronephrosis. BLADDER: Unremarkable. GASTROINTESTINAL TRACT: The small bowel is normal in caliber. The appendix appears normal. There is diverticulosis of the colon. The colon is normal in caliber. Generalized haziness to the intra-abdominal fat. Moderate volume of simple peritoneal fluid layering in the pelvis. ABDOMINAL WALL: No discrete abdominal wall hernia. Generalized anasarca. LYMPH NODES: There are mildly enlarged retroperitoneal and inguinal lymph nodes similar to the previous exam. VASCULAR: Diffusely calcified arterial system consistent with diabetes. PELVIC VISCERA: Unremarkable. OSSEOUS STRUCTURES: Degenerative changes at L4-L5. CT/CT abdomen pelvis wo IV con IMPRESSION: No explanation for left flank pain. No nephrolithiasis or hydronephrosis Moderate right pleural effusion, moderate pelvic free fluid, generalized anasarca consistent with volume overload in the setting of end-stage renal disease. Enlarged liver. Stable generalized mild lymphadenopathy. Fleischner guidelines were followed.
--- NOTE | ~2022-12-17 | XR_ITS ---
EXAMINATION: XR CHEST CLINICAL INFORMATION: Chest pain COMPARISON: None available. TECHNIQUE: Frontal view of the chest was obtained. FINDINGS: The lungs are well-expanded and clear. The heart size and pulmonary vascularity is normal. There is right jugular inserted dialysis catheter tip in atriocaval junction. No gross bony abnormalities seen. XR/XR chest 1V IMPRESSION: Unremarkable chest exam.
--- NOTE | 2022-12-17 13:55 | ECG_ITS ---
Test Reason : pain Blood Pressure : / mmHG Vent. Rate : 109 BPM Atrial Rate : 109 BPM P-R Int : 132 ms QRS Dur : 138 ms QT Int : 388 ms P-R-T Axes : 064 002 009 degrees QTc Int : 522 ms Poor data quality Sinus tachycardia Right bundle branch block Abnormal ECG When compared with ECG of 02-DEC-2022 10:54, T wave inversion no longer evident in Anterolateral leads Referred By: Nat Brown Electronically Signed By:JEREMÍAS SANDOVAL MD
--- NOTE | 2022-12-17 14:01 | ED.GENADULT ---
HPI - General Adult General Chief complaint: General Medical Stated complaint: CP,SOB X3 DAYS PER EMS Time Seen by Provider: 12/17/22 13:45 Source: patient, EMS and old records reviewed Mode of arrival: EMS Limitations: no limitations History of Present Illness HPI narrative: 32 yo female with PMH of ESRD on HD MWF, CAD, CHF , DM with nephropathy and retinopathy and legally blind, gastroparesis, here with c/o worsening low back pain on left no numbness, weakness saddle anesthesia or urinary incontinence, she has n/v and feels short of breath. She last went to HD on Sunday. She states she tried to take her meds but threw them up this AM. She has frequent visits for similar complaints and has hx of non compliance with meds and HD. She has diffuse body pain as well - denies sick contacts at home MD complaint: malaise Onset (ago): day(s) (2) Location: head, chest, back and abdomen Radiation: non-radiation Severity: severe Quality: stabbing, aching and constant Pain Consistency: constant Relieving factors: none Exacerbating factors: movement Associated symptoms: chest pain, cough, headaches, loss of appetite, malaise, nausea/vomiting and shortness of breath Treatments prior to arrival: none Related Data Home Medications Medication Instructions Recorded Confirmed hydralazine 25 mg tablet 75 mg PO TID 08/25/22 11/28/22 Previous Rx's Medication Instructions Recorded aspirin 81 mg tablet,delayed 81 mg PO DAILY #90 tabs 08/20/22 release atorvastatin 40 mg tablet 40 mg PO BEDTIME #90 tabs 08/20/22 clopidogrel 75 mg tablet 75 mg PO DAILY #90 tabs 08/20/22 glipizide 2.5 mg tablet, extended 2.5 mg PO DAILY #90 tabs 08/20/22 release 24 hr losartan 25 mg tablet 25 mg PO DAILY #90 tabs 08/20/22 nifedipine 60 mg tablet,extended 60 mg PO DAILY #90 tabs 08/20/22 release 24 hr omeprazole 40 mg capsule,delayed 40 mg PO DAILY@0630 #90 caps 08/20/22 release torsemide 20 mg tablet 40 mg (2 x 20 mg) PO BID #180 tabs 08/20/22 oxycodone 5 mg tablet 5 mg PO Q6H PRN severe pain #20 10/07/22 tabs metoclopramide HCl 5 mg tablet 5 mg PO TIDAC 30 days #90 tabs 12/03/22 Allergies Allergy/AdvReac Type Severity Reaction Status Date / Time morphine [MORPHINE] Allergy Intermediate Itching Verified 11/28/22 14:51 azithromycin [From Zithromax] Allergy Hives Verified 11/28/22 14:51 gabapentin Allergy Facial Verified 11/28/22 14:51 Swelling tramadol Allergy Facial Verified 11/28/22 14:51 Swelling vancomycin Allergy Hives Verified 11/28/22 14:51 Review of Systems Review of Systems: Constitutional : No Fever, No Chills, pos Fatigue ENT/Mouth : No sore throat, No Rhinorrhea Eyes: No Eye Pain, No Swelling, No Redness Cardiovascular : pos Chest Pain, pos SOB, No Dyspnea on Exertion Respiratory : No Cough, No Sputum Gastrointestinal : pos Nausea, pos Vomiting, No Diarrhea, No abdominal Pain, pos flank pain Genitourinary : No Dysuria, No Urinary Frequency, No Hematuria, Musculoskeletal : No joint pain, pos Myalgias, No Joint Swelling Skin : No Skin Lesions, No rash Neuro : No Weakness, No Numbness, No Dizziness, positive Headache Psych : No Anxiety/Panic, No Depression All other systems reviewed and are negative PMFSH Past Medical History Attestation statement: The following information was validated with the patient. Source: old records reviewed Medical History Gastroparesis Non-compliance with renal dialysis Hypertension End-stage renal disease (ESRD) Diabetic foot ulcer associated with type 2 diabetes mellitus Hypertensive emergency Diabetes ESRD needing dialysis Cardiomyopathy HFrEF (heart failure with reduced ejection fraction) Metabolic acidosis delivery delivered Anemia in chronic kidney disease (CKD) CKD (chronic kidney disease) Headache, migraine Abnormal finding on echocardiogram Elevated troponin Chest pain Acute worsening of stage 3 chronic kidney disease Generalized edema Sepsis Cellulitis Pleural effusion CHF (congestive heart failure) (~06/07/22) Tachycardia Atypical chest pain Bone infection PAD (peripheral artery disease) Severe anemia Cellulitis and abscess of foot DM foot ulcer Osteomyelitis test positive test positive Asthma Depression with anxiety Diabetic retinopathy Type 2 diabetes mellitus with hyperglycemia, with long-term current use of insulin Blind right eye Diabetes Back pain Surgical History 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 Family History Family History Mother Coronary artery disease Myocardial infarction Stroke Diabetes mellitus Father Myocardial infarction Social History Social History Household Members: Family Household Members Other:: Sister, [id number], nephew Housing: Apartment Do you presently have visiting nurse or other home services: No Alcohol intake: never Patient Tobacco Use Status: Never used Tobacco Smoked in Last 30 Days: No e-Cigarette/Vaping Use: Never Used Second Hand Smoke Exposure: No Use of substances other than those prescribed or required for medical reasons: No Advance Directives: Yes Advance Directives on File: Yes Advance Directives Date on File: 03/08/20 Patient : No service: No Current occupational status: unemployed and disabled Gender identity: Female Physical Exam ED Vital Signs: Vital Signs - 24 hr 12/17/22 13:52 12/17/22 14:29 12/17/22 14:33 Temperature 97.7 F Pulse Rate 105 H 100 Respiratory Rate 20 20 Blood Pressure 204/126 H 212/101 H Pulse Oximetry 99 97 Oxygen Delivery Method Nasal Cannula Room Air Oxygen Flow Rate 12/17/22 14:47 12/17/22 15:57 12/17/22 16:10 Temperature 99.4 F Pulse Rate 104 H 107 H 109 H Respiratory Rate 15 16 Blood Pressure 173/104 H 186/105 H 177/99 H Pulse Oximetry 97 Oxygen Delivery Method Nasal Cannula Oxygen Flow Rate 2 BMI result Body Mass Index 27.4 Appearance: Alert. Oriented X3. in pain mild acute distress. active vomiting Eyes: R eye opacified ENT: Pharynx normal. Neck: Normal inspection. Neck supple. CVS: tachycardic heart rate and rhythm. Pulses normal. Respiratory: No respiratory distress. Breath sounds diminished at bases and Abdomen: Soft and non-tender. has L CVA ttp Skin: Skin warm and dry. Normal skin color. poor skin turgor. Extremities: trace pitting lower extremity edema. No calf ttp Neuro: Oriented X 3. No motor deficit. No sensory deficit. Course Course Course Narrative: BP trending down vomiting and pain improved with IV dilaudid and medications Reevaluation(s) Reevaluation #1: BNP at baseline, trop flat, H/H at baseline Reevaluation #2: BP improved still c/o nause and vomiting will likely fail outpatient and return - needs HD in AM. Medications Administered Discontinued Medications Generic Name Dose Route Start Last Admin Trade Name Brandon PRN Reason Stop Dose Admin Droperidol 1.25 mg 12/17/22 13:59 12/17/22 14:25 Droperidol 5 Mg/2 Ml Vial IVPUSH 12/17/22 14:00 1.25 mg ONCE ONE Administration Hydralazine HCl 75 mg 12/17/22 15:08 12/17/22 15:21 Hydralazine Hcl 50 Mg Tablet PO 12/17/22 15:09 75 mg ONCE ONE Administration Protocol Hydromorphone HCl 0.5 mg 12/17/22 13:59 12/17/22 14:22 Hydromorphone Hcl 0.5 Mg/0.5 Ml Syringe IVPUSH 12/17/22 14:00 0.5 mg ONCE ONE Administration Protocol Labetalol HCl 10 mg 12/17/22 13:59 12/17/22 14:21 Labetalol Hcl 100 Mg/20 Ml Vial IVPUSH 12/17/22 14:00 10 mg ONCE ONE Administration Medical Decision Making Medical Decision Making [facility] Narrative: 32 yo female with PMH of ESRD on HD MWF, CAD, CHF , DM with nephropathy and retinopathy and legally blind, gastroparesis, here with multiple complaints n/v flank pain, chest pain, dyspnea, headaches - BP high, no HD since Sunday will obtain [place] labs, CXR for edema, CT scan for mass/renal colic, troponin/BNP, IV dilaudid for pain, droperidol for vomiting qtc 520, IV labetalol for pressure. Hx of same presentation in the past Differential Diagnosis Differential Diagnoses: The differential diagnosis associated with the presentation includes viral syndrome, HTN emergency/urgency, renal colic, back pain, noncompliance, lyte abnormality, gastroparesis Admission/Observation Consideration of admission/observation: Escalation of care including admission/observation considered admit for further workup and management Consult Healthcare Provider Management of the patient was discussed with: Hospitalist (will admit patient) Lab Data MDM Lab Attestation statement: I reviewed the patient's lab results. 12/17/22 14:13 12/17/22 14:13 Labs: Lab Results 12/17/22 Range/Units 14:13 WBC 6.6 (4.8-10.8) X10*3/uL RBC 3.27 L (4.20-5.50) X10*6/uL Hgb 9.2 L (12.0-16.0) g/dl Hct 29.1 L (37.0-47.0) % MCV 89.0 (80.0-98.0) fL MCH 28.1 (27.0-33.0) pg MCHC 31.6 (31.0-35.0) g/dl RDW 16.8 H (11.0-16.0) % Plt Count 285 D (160-400) X10*3/uL MPV 12.1 (9.4-12.3) fL Immature Gran % (Auto) 0.6 H (0.0-0.4) % Neut % (Auto) 83.2 H (45-73) % Lymph % (Auto) 7.1 L (20-40) % [place] % (Auto) 4.5 (2-11) % Eos % (Auto) 3.8 (0-4) % Baso % (Auto) 0.8 (0-2) % Lymph # (Auto) 0.5 L (1.2-4.9) X10*3/uL [place] # (Auto) 0.3 (0.1-1.2) X10*3/uL Eos # (Auto) 0.3 (0.0-0.4) X10*3/uL Baso # (Auto) 0.1 (0.0-0.2) X10*3/uL Abs Immat Gran (auto) 0.04 H (0.00-0.03) X10*3/uL Absolute Neuts (auto) 5.5 (2.0-8.3) x10*3/uL Absolute Nucleated RBC 0.000 (0.0-0.012) X10*3/uL Nucleated RBC % (auto) 0.0 (0.0-0.2) /100WBC PT 14.4 H (11.1-13.3) SEC INR 1.2 H (0.9-1.1) Sodium 137 (135-145) mmol/L Potassium 4.5 D (3.3-5.1) mmol/L Chloride 107 (96-108) mmol/L Carbon Dioxide 15 L (22-29) mmol/L Anion Gap 20 (12-20) BUN 52 H (9-16) mg/dL Creatinine 4.29 H* (0.5-1.4) mg/dL Estim Creat Clear Calc 19.3 Estimated GFR 12 Random Glucose 82 (60-115) mg/dL Calcium 8.9 D (8.4-10.2) mg/dL Magnesium 2.3 (1.6-2.6) mg/dL Total Bilirubin 1.2 H (0.0-1.0) mg/dL Direct Bilirubin 0.5 (0.0-0.5) mg/dL AST 26 (5-31) U/L ALT 15 (0-31) U/L Alkaline Phosphatase 169 H (39-117) U/L Troponin I High Sens 17.6 H D (<3.5-17.0) ng/L B-Natriuretic Peptide 4485 H (<100) pg/mL Total Protein 7.4 (6.5-8.0) g/dL Albumin 2.8 L (3.5-5.0) g/dL Lipase 13 (8-78) U/L COVID-19 (CARO) Negative (Negative) COVID-19 Clin Com See Note Independent Interpretation I performed an independent interpretation of an: EKG, Plain X-Ray (no edema) and CT Scan (no cause of pain) Interpretation: Rate: 109 Rhythm: sinus tach [place]: normal Normal P waves. Normal TYLER. RBBB ST T wave : no GABRIELE, artifact noted, qTC: 522 prior studies: no sig change from prior The study has been interpreted contemporaneously by me. . Radiology Impression Discussion of test interpretation with radiology: I have reviewed the radiologist's reading. Independent Historian Clinical information obtained from an independent historian. History obtained from or confirmed by: EMS External Record Review External record reviewed: Inpatient record Chronic Conditions Patient?s care impacted by: Hypertension Social Determinants Patient?s care significantly limited by Social Determinants of Health including: Other Social Determinant of Health (non-compliance) Critical Care Time Critical Care Time Critical Care Time: Yes Total Critical Care Time: 45 Attestation: pain improved with IV dilaudid, IV labetalol improved BP, repeat assessments I attest to this time spent taking care of the patient Discharge Plan Discharge Clinical Impression: Gastroparesis, Non-compliance with renal dialysis, Hypertension, uncontrolled Patient Disposition: Admitted As Inpatient Prescriptions: No Action hydralazine 25 mg tablet 75 mg PO TID oxycodone 5 mg tablet 5 mg PO Q6H PRN (Reason: severe pain) Qty: 20 0RF metoclopramide HCl 5 mg Tablet 5 mg PO TIDAC 30 Days Qty: 90 0RF atorvastatin 40 mg Tablet 40 mg PO BEDTIME Qty: 90 0RF clopidogrel 75 mg Tablet 75 mg PO DAILY Qty: 90 0RF aspirin 81 mg Tablet,Delayed Release (Dr/Ec) 81 mg PO DAILY Qty: 90 0RF losartan 25 mg Tablet 25 mg PO DAILY Qty: 90 0RF Protocol: Hold for SBP< HOLD for SBP < : 90 omeprazole 40 mg Capsule,Delayed Release(Dr/Ec) 40 mg PO DAILY@0630 Qty: 90 0RF torsemide 20 mg tablet 40 mg PO BID Qty: 180 0RF nifedipine 60 mg tablet extended release 24hr 60 mg PO DAILY Qty: 90 0RF glipizide 2.5 mg tablet extended release 24hr 2.5 mg PO DAILY Qty: 90 0RF
[2022-12-17 14:21] LABS: MANUAL DIFF FLAG NO
[2022-12-17] MEDS: Labetalol HCL 100 MG/20 ML VIAL 10 MG IVPUSH (14:21)
[2022-12-17] MEDS: HYDROmorphone HCl 0.5 MG/0.5 ML SYRINGE IVPUSH ×2 (14:22→21:07)
[2022-12-17] MEDS: droPERidol 5 MG/2 ML VIAL 1.25 MG IVPUSH (14:25)
[2022-12-17 14:27] LABS: Basophils Absolute Auto 0.1 X10*3/uL (0.0-0.2); Basophils Percent Auto 0.8 % (0-2); Eosinophils Absolute Auto 0.3 X10*3/uL (0.0-0.4); Eosinophils Percent Auto 3.8 % (0-4); Hematocrit 29.1 % (37.0-47.0); Hemoglobin 9.2 g/dl (12.0-16.0); Imm Gran Abs Auto 0.04 X10*3/uL (0.00-0.03); Imm Gran Pct Auto 0.6 % (0.0-0.4); Lymphocytes Absolute Auto 0.5 X10*3/uL (1.2-4.9); Lymphocytes Percent Auto 7.1 % (20-40); Mean Corpuscular HGB Conc 31.6 g/dl (31.0-35.0); Mean Corpuscular Hemoglobin 28.1 pg (27.0-33.0); Mean Platelet Volume 12.1 fL (9.4-12.3); Monocytes Absolute Auto 0.3 X10*3/uL (0.1-1.2); Monocytes Percent Auto 4.5 % (2-11); Neutrophils Absolute Auto 5.5 x10*3/uL (2.0-8.3); Neutrophils Percent Auto 83.2 % (45-73); Platelet Count 285 X10*3/uL (160-400); Red Blood Count 3.27 X10*6/uL (4.20-5.50); Red Cell Distribution Width 16.8 % (11.0-16.0); White Blood Count 6.6 X10*3/uL (4.8-10.8)
[2022-12-17 14:30] LABS: INTERNATIONAL NORM RATIO 1.2 (0.9-1.1); Prothrombin Time 14.4 SEC (11.1-13.3)
--- NOTE | 2022-12-17 14:32 | PC.NURSE ---
Patient arrived via ems from home after not feeling well since . Sinus tachy on monitor. Hypertensive, provider aware
[2022-12-17 14:42] LABS: Alanine Aminotransferase 15 U/L (0-31); Albumin Level 2.8 g/dL (3.5-5.0); Alkaline Phosphatase 169 U/L (39-117); Anion Gap 20 (12-20); Aspartate Amino Transferase 26 U/L (5-31); Bilirubin Direct 0.5 mg/dL (0.0-0.5); Bilirubin Total 1.2 mg/dL (0.0-1.0); Blood Urea Nitrogen 52 mg/dL (9-16); Calcium 8.9 mg/dL (8.4-10.2); Carbon Dioxide 15 mmol/L (22-29); Chloride 107 mmol/L (96-108); Creatinine Clr Calc Pharmacy 19.3; Estimated Glomerular Filt Rate 12; Glucose Random 82 mg/dL (60-115); Lipase 13 U/L (8-78); Magnesium 2.3 mg/dL (1.6-2.6); Potassium 4.5 mmol/L (3.3-5.1); Sodium 137 mmol/L (135-145); Total Protein 7.4 g/dL (6.5-8.0)
[2022-12-17 14:46] LABS: B Type Natriuretic Peptide 4485 pg/mL (<100)
[2022-12-17 14:47] LABS: Troponin-I High Sensitivity 17.6 ng/L (<3.5-17.0)
[2022-12-17 14:48] LABS: COVID-19 Test Negative (Negative); IDNOW Serial# BCCEAD1C
[2022-12-17] MEDS: hydrALAZINE HCl 50 MG TABLET 75 MG PO (15:21)
--- NOTE | 2022-12-17 16:55 | PHA.MEDREC ---
Pharmacy Consult ? Medication Reconciliation Pharmacy has completed the medication reconciliation. Patient last discharged 12/03/22 and med rec performed by Molly Lombardo during visit. Per pharmacy claim history, no med additions. Utilized discharge meds to confirm meds.
--- NOTE | 2022-12-17 17:08 | PM.IMHP ---
History of Present Illness Date of Service: 12/17/22 Chief Complaint: Nausea and vomiting 32-year-old female patient with past medical history of end-stage renal disease on hemodialysis Sunday, coronary artery disease, CHF, diabetes mellitus with gastroparesis, nephropathy and retinopathy and legally blind presented to [facility] due to symptoms of nausea vomiting of few days duration unable to take her medications also complaining of generalized body ache, back pain, complaining of cough and shortness of breath, no fevers, no chills complaining of headache, dizziness, denies sick contacts, wheelchair bound,she skipped hemodialysis on Sunday, last hemodialysis was on Sunday, patient has history of noncompliance with meds and hemodialysis requiring hospitalization for inpatient hemodialysis, on arrival blood pressure 212/101, afebrile, respiratory rate 16 pulse is 109, finger oximetry 97 on room air, chest x-ray unremarkable, abdominal CT showed no nephrolithiasis or hydronephrosis moderate right pleural it effusion, moderate pelvic free fluid generalized anasarca consistent with or tumor overload, enlarged liver, in ED treated with IV labetalol 10 mg, PO hydralazine 75 mg, IV Dilaudid and IV droperidol, patient blood pressure and shortness of breath improved now being admitted to [facility] for hemodialysis and pain management since unable to keep medicines and food down due to persistent nausea vomiting in relation to gastroparesis. Review of Systems Review of Systems: Constitutional Constitutional: Denies chills and Denies fever(s) Cardiovascular Cardiovascular: Denies chest pain, Denies palpitations Respiratory Respiratory: cough and shortness of breath Gastrointestinal Gastrointestinal: Reports abdominal pain, Reports nausea and Reports vomiting no symptoms Review of Systems: Yes all other systems are reviewed and are negative [facility] Medical History Gastroparesis Non-compliance with renal dialysis Hypertension End-stage renal disease (ESRD) Diabetic foot ulcer associated with type 2 diabetes mellitus Hypertensive emergency Diabetes ESRD needing dialysis Cardiomyopathy HFrEF (heart failure with reduced ejection fraction) Metabolic acidosis delivery delivered Anemia in chronic kidney disease (CKD) CKD (chronic kidney disease) Headache, migraine Abnormal finding on echocardiogram Elevated troponin Chest pain Acute worsening of stage 3 chronic kidney disease Generalized edema Sepsis Cellulitis Pleural effusion CHF (congestive heart failure) (~06/07/22) Tachycardia Atypical chest pain Bone infection PAD (peripheral artery disease) Severe anemia Cellulitis and abscess of foot DM foot ulcer Osteomyelitis test positive test positive Asthma Depression with anxiety Diabetic retinopathy Type 2 diabetes mellitus with hyperglycemia, with long-term current use of insulin Blind right eye Diabetes Back pain Family History Mother Coronary artery disease Myocardial infarction Stroke Diabetes mellitus Father Myocardial infarction Surgical History 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 Social History Household Members: Family Household Members Other:: Sister, [id number], nephew Housing: Apartment Do you presently have visiting nurse or other home services: No Alcohol intake: never Patient Tobacco Use Status: Never used Tobacco Smoked in Last 30 Days: No e-Cigarette/Vaping Use: Never Used Second Hand Smoke Exposure: No Use of substances other than those prescribed or required for medical reasons: No Advance Directives: Yes Advance Directives on File: Yes Advance Directives Date on File: 03/08/20 Patient : No service: No Current occupational status: unemployed and disabled Gender identity: Female Meds Allergies Allergy/AdvReac Type Severity Reaction Status Date / Time morphine [MORPHINE] Allergy Intermediate Itching Verified 11/28/22 14:51 azithromycin [From Zithromax] Allergy Hives Verified 11/28/22 14:51 gabapentin Allergy Facial Verified 11/28/22 14:51 Swelling tramadol Allergy Facial Verified 11/28/22 14:51 Swelling vancomycin Allergy Hives Verified 11/28/22 14:51 Active Medications: Current Medications Acetaminophen (Acetaminophen 325 Mg Tablet) 650 mg PO Q6H PRN PRN Reason: Pain, Mild (Pain Scale 1-3) Aspirin (Aspirin Enteric Coated 81 Mg Tablet.Dr) 81 mg PO DAILY [facility] Atorvastatin Calcium (Atorvastatin Calcium 40 Mg Tablet) 40 mg PO BEDTIME VASILE Benzonatate (Benzonatate 100 Mg Capsule) 100 mg PO TID PRN PRN Reason: Cough Clopidogrel Bisulfate (Clopidogrel Bisulfate 75 Mg Tablet) 75 mg PO DAILY [facility] Hydralazine HCl (Hydralazine Hcl 25 Mg Tablet) 75 mg PO TID VASILE; Protocol Losartan Potassium (Losartan Potassium 25 Mg Tablet) 25 mg PO DAILY [facility]; Protocol Melatonin (Melatonin 3 Mg Tablet) 3 mg PO BEDTIME PRN PRN Reason: Insomnia Nifedipine (Nifedipine Er 60 Mg Tab.Er.24) 60 mg PO DAILY [facility]; Protocol Omeprazole (Omeprazole 40 Mg Capsule.Dr) 40 mg PO DAILY@0630 [facility] Ondansetron HCl (Ondansetron Hcl 4 Mg/2 Ml Vial) 4 mg IVPUSH Q8H PRN PRN Reason: Nausea and Vomiting Oxycodone HCl (Oxycodone Hcl Immed Release 5 Mg Tablet) 5 mg PO Q6H PRN PRN Reason: severe pain Sodium Chloride (0.9 % Sodium Chloride Flush 3 Ml Syringe) 3 ml IVFLUSH QSHIFT VASILE Torsemide (Torsemide 20 Mg Tablet) 40 mg PO BID [facility]; Protocol Home Medications Medication Instructions Recorded Confirmed Last Taken Type hydralazine 25 mg tablet 75 mg PO TID 08/25/22 12/17/22 08/24/22 History Physical Exam Vital Signs and Narrative: Vital Signs: Last Vital Signs Temp 99.4 F 12/17/22 15:57 Pulse 109 H 12/17/22 16:10 Resp 16 12/17/22 15:57 BP 177/99 H 12/17/22 16:10 Pulse Ox 97 12/17/22 15:57 O2 Del Method Nasal Cannula 12/17/22 15:57 O2 Flow Rate 2 12/17/22 15:57 Oxygen Flow Rate 2 12/17/22 13:52 BMI result Body Mass Index 27.4 Const: Other: Gen: Awake alert x3, in no acute distress HEENT: sclera anicteric, moist mucus membranes, legally blind Hemodialysis catheter right chest wall Neck: supple Lungs: clear to auscultation bilaterally Heart: regular rate and rhythm, no murmurs Abd: soft, non tender, no rebound Ext: No leg edema, transmetatarsal amputation left foot, multiple toes amputation right foot, dressing in place for left foot wound ,no drainage. Skin: warm/well-perfused Neuro: alert and oriented x3, no focal findings Psych: appropriate affect Results Labs 12/17/22 14:13 12/17/22 14:13 Labs: Laboratory Results - last 24 hr 12/17/22 14:13 MCV 89.0 MCH 28.1 MCHC 31.6 RDW 16.8 H Plt Count 285 D MPV 12.1 Immature Gran % (Auto) 0.6 H Neut % (Auto) 83.2 H Lymph % (Auto) 7.1 L [place] % (Auto) 4.5 Eos % (Auto) 3.8 Baso % (Auto) 0.8 Lymph # (Auto) 0.5 L [place] # (Auto) 0.3 Eos # (Auto) 0.3 Baso # (Auto) 0.1 Abs Immat Gran (auto) 0.04 H Absolute Neuts (auto) 5.5 Absolute Nucleated RBC 0.000 Nucleated RBC % (auto) 0.0 PT 14.4 H INR 1.2 H Anion Gap 20 Estim Creat Clear Calc 19.3 Estimated GFR 12 Random Glucose 82 Calcium 8.9 D Magnesium 2.3 Total Bilirubin 1.2 H Direct Bilirubin 0.5 AST 26 ALT 15 Alkaline Phosphatase 169 H B-Natriuretic Peptide 4485 H Total Protein 7.4 Albumin 2.8 L Lipase 13 COVID-19 (CARO) Negative COVID-19 Clin Com See Note Imaging Radiologist's Impressions: Impressions Chest X-Ray 12/17/22 14:35 IMPRESSION: Unremarkable chest exam. Abdomen/Pelvis CT 12/17/22 15:18 IMPRESSION: No explanation for left flank pain. No nephrolithiasis or hydronephrosis Moderate right pleural effusion, moderate pelvic free fluid, generalized anasarca consistent with volume overload in the setting of end-stage renal disease. Enlarged liver. Stable generalized mild lymphadenopathy. Fleischner guidelines were followed. Assessment and Plan (1) Hypertension, uncontrolled: Status: Acute (2) Gastroparesis: Status: Acute (3) Chronic pain: Status: Acute (4) ESRD on dialysis: Status: Acute (5) Non-compliance with renal dialysis: Status: Acute Plan 32yo F with HTN, chronic HFrEF, DM2 with retinopathy, mood disorder, PAD s/p TMTA, ERSD on HD non-compliant here with body ache, n/v hasn't been to dialysis in more than 1 week Accelerated HTN due to non-compliant with meds/HD Blood pressure improving status post IV labetalol,po hydralazine, resume home medications, shortness of breath improving. add IV labetalol for SBP > 190 ESRD--on hemodialysis Sunday, last hemodialysis on Sunday, will consult Nephrology for hemodialysis at a.m. /low potassium diet. Nausea/vomitting due to gastroparesis--IV Reglan, continue PPI, CT abdomen and pelvis showed no acute abnormality, normal LFTs and lipase, COVID-19 negative, supportive care Diabetes type 2 poor by mouth intake, hold glipizide, will place on insulin sliding scale and diabetic diet as tolerated. HFrEF--no acute exacerbation, chronically elevated BNP, continue torsemide, hemodialysis at a.m. Generalize body ache--chronic, IV dilaudid prn and oxycodone by mouth as needed. DVT prophylaxis: heparin subQ Full code Admission for at least 2 midnights for management of HTN emergency,uremia, and nausea /vomiting. Time Spent With Patient Time: Total time managing care of this patient today ____ minutes. Quality Stroke Does the patient have a stroke diagnosis?: No VTE Prior VTE?: No VTE Risk Level:: Medical - moderate - high VTE Device Contraindication: Treatment Not Indicated VTE Drug Contraindication: N/A - Med Ordered
--- NOTE | 2022-12-17 17:39 | PC.NURSE ---
Patient declined hepain stating she never allows for shots for blood clots and has been fine. Educated on risks of blood clots, patient aware
--- NOTE | 2022-12-17 18:39 | PC.NURSE ---
Patient resting comfortably, reports pain is much improved. no sob noted, able to reposition self in bed
[2022-12-17 21:04] LABS: Glucose, Whole Blood 90 mg/dL (60-115)
--- NOTE | 2022-12-17 21:20 | PC.NURSE ---
This RN attempted to medicate patient with 2100 medications. Pt stating she needs pain medications. This RN offered Dilaudid for pain, pt agreeable. This RN also explained that we would be taking a blood sugar to determine if insulin was needed. Pt stated I don't take insulin, not at home or in the hospital . this RN explained that in the hospital we will cover her blood glucose with insulin instead of the typical diabetes medications. Pt again disagreed stating she will not be taking insulin. This RN verbalized understanding, took blood sugar and no coverage was needed. This RN attempted to medicate patient with oral medications after giving Diluadid, pt states I cannot take my oral meds [place] I will throw them up . This RN verbalizes understanding and returned medications to [facility]
--- NOTE | 2022-12-17 21:56 | PC.NURSE ---
pt moved into hospital bed as stating discomfort in ed stretcher. episode of vomiting. pt reporting nausea.
[2022-12-17] MEDS: Metoclopramide HCl 10 MG/2 ML VIAL 5 MG IVPUSH (22:02)
[2022-12-18] VITALS (15 sets, daily range): BP systolic 102–200; BP diastolic 54–120; PULSE 88–103; RESP 14–23; TEMP 36.3–36.8; O2SAT 94–99
[2022-12-18] MEDS: 0.9 % Sodium Chloride Flush 3 ML SYRINGE IVFLUSH ×2 (00:35→19:24)
--- NOTE | 2022-12-18 01:33 | PC.NURSE ---
Addendum entered by Rashad Cordoba 12/18/22 06:20: no new orders. Original Note: bp elevated as documented; Dr. Arora aware.
[2022-12-18] MEDS: HYDROmorphone HCl 0.5 MG/0.5 ML SYRINGE IVPUSH ×6 (01:44→23:38)
--- NOTE | 2022-12-18 01:49 | PC.NURSE ---
pt reports 7/10 generalized pain; pt requests prn; pt medicated per mar. respirations even and unlabored. call moore within reach.
--- NOTE | 2022-12-18 05:30 | PC.NURSE ---
pt reporting pain returned /; requesting prn. pt educated dilaudid prn is not due yet; pt refusing other prns/nonpharmalogical forms of pain relief. pt states she's waiting for prn to be due. call moore within reach.
--- NOTE | 2022-12-18 06:04 | PC.NURSE ---
pt requesting pr dose of dilaudid. this rn gave dose, pt respirations even and unlabored.
--- NOTE | 2022-12-18 06:23 | PC.NURSE ---
bp elevated 200/120; Dr. Arora aware.
--- NOTE | 2022-12-18 06:51 | PC.NURSE ---
pt refusing omeprazole and heparin per apr. pt states i never take that.
[2022-12-18 07:28] LABS: Glucose, Whole Blood 95 mg/dL (60-115)
[2022-12-18] MEDS: Omeprazole 40 MG CAPSULE.DR PO (08:49)
[2022-12-18] MEDS: Losartan Potassium 25 MG TABLET PO (08:51)
[2022-12-18] MEDS: Torsemide 20 MG TABLET 40 MG PO (08:53)
[2022-12-18] MEDS: hydrALAZINE HCl 25 MG TABLET 75 MG PO ×2 (08:56→17:21)
[2022-12-18] MEDS: Clopidogrel Bisulfate 75 MG TABLET PO (09:00)
[2022-12-18] MEDS: Aspirin Enteric Coated 81 MG TABLET.DR PO (09:01)
--- NOTE | 2022-12-18 09:53 | PC.NURSE ---
assumed care of pt at 0700. pt a&o x4, pleasant, calm, and cooperative. pt found to be vomiting green bile in rosina-bag. medicated with prn Reglan per apr. once vomiting subsided, pt took morning medications via crushed with pudding. pt tolerated well. provided with water at bedside. refused breakfast. pt currently resting quietly on strertcher in no apparent distress. on 2L O2 via NC. rr even unlabored. awaiting bed assignment. call moore within pt reach. plan of care ongoing.
[2022-12-18] MEDS: NIFEdipine ER 60 MG TAB.ER.24 PO (09:59)
--- NOTE | 2022-12-18 10:20 | MHC.CM.PN ---
CM MET WITH PT WITH DISTRIBUTION CLERK PT REPORTS SHE LIVES WITH HER SISTER WHO IS ALSO HER COAL EQUIPMENT OPERATOR SHE REPORTS HAVING DAILY COAL EQUIPMENT OPERATOR SERVICES PT GOES TO HD AT [facility], FAMILY TRANSPORTS PT USES A WHEELCHAIR AT PT REPORTS HER PCP RETIRED, SHE IS UNSURE OF NEW PCP NAME HCP ON FILE IMM DELIVERED DCP: HOME, RESUME SERVICES FAMILY TO TRANSPORT
--- NOTE | 2022-12-18 10:34 | PC.NURSE ---
pt helped to commode, given adonay pad. medicated per mar for pain. pt to dialysis via transporter in hospital bed with belongings for bed assignment when dialysis is completed.
--- NOTE | 2022-12-18 11:59 | P.PNNP_ITS ---
Subjective Subjective Date of Service: 12/18/22 Interval history: Pt seen on HD BP is high Physical Exam 2 Vital Signs: Vital Signs: Last Vital Signs Temp 97.5 F 12/18/22 07:38 Pulse 103 H 12/18/22 10:34 Resp 23 H 12/18/22 10:34 BP 175/94 H 12/18/22 10:34 Pulse Ox 94 12/18/22 10:34 O2 Del Method Nasal Cannula 12/18/22 10:34 O2 Flow Rate 2 12/18/22 10:34 Oxygen Flow Rate 2 12/17/22 13:52 BMI result Body Mass Index 27.4 Const: General: cooperative, comfortable, no acute distress, alert and awake Nutritional Appearance: average body habitus Orientation/consciousness: p atient oriented x3 Eyes: Other: blind right eye Chest: Other: HD cath right chest wall Resp: Effort & Inspection: normal respiratory effort, able to speak in complete sentences, no respiratory distress and no use of accessory muscles Cardio: Rate: regular rate GI: Inspection: No distended Palpation (GI): Soft to palpation and nontender Neuro: General: patient oriented x3, moves all extremities and CN's II-XI intact bilaterally Extrem: Other: transmetatarsal amp left foot, multiple toes amps right foot Objective Data Labs 12/17/22 14:13 12/17/22 14:13 Labs: Laboratory Results - last 24 hr 12/17/22 12/17/22 12/18/22 14:13 21:01 07:25 WBC 6.6 RBC 3.27 L Hgb 9.2 L Hct 29.1 L MCV 89.0 MCH 28.1 MCHC 31.6 RDW 16.8 H Plt Count 285 D MPV 12.1 Immature Gran % (Auto) 0.6 H Neut % (Auto) 83.2 H Lymph % (Auto) 7.1 L [place] % (Auto) 4.5 Eos % (Auto) 3.8 Baso % (Auto) 0.8 Lymph # (Auto) 0.5 L [place] # (Auto) 0.3 Eos # (Auto) 0.3 Baso # (Auto) 0.1 Abs Immat Gran (auto) 0.04 H Absolute Neuts (auto) 5.5 Absolute Nucleated RBC 0.000 Nucleated RBC % (auto) 0.0 PT 14.4 H INR 1.2 H Sodium 137 Potassium 4.5 D Chloride 107 Carbon Dioxide 15 L Anion Gap 20 BUN 52 H Creatinine 4.29 H* Estim Creat Clear Calc 19.3 Estimated GFR 12 POC Glucose 90 95 Random Glucose 82 Calcium 8.9 D Magnesium 2.3 Total Bilirubin 1.2 H Direct Bilirubin 0.5 AST 26 ALT 15 Alkaline Phosphatase 169 H Troponin I High Sens 17.6 H D B-Natriuretic Peptide 4485 H Total Protein 7.4 Albumin 2.8 L Lipase 13 COVID-19 (CARO) Negative COVID-19 Clin Com See Note Procedures Date of Service Date of Service: 12/18/22 Assessment & Plan Assessment and plan (1) ESRD on dialysis: Status: Acute Assessment and Plan: 1. 32yo F with ESRD: HTN, chronic HFrEF, DM2 with retinopathy, mood disorder, PAD s/p TMTA,: non-compliant here with body ache, n/v hasn't been to dialysis in more than 1 week 2. Accelerated HTN due to non-compliant with meds/HD Blood pressure status post IV labetalol,po hydralazine, resume home medications, shortness of breath improving. 3. Nausea/vomitting due to gastroparesis--IV Reglan, continue PPI, CT abdomen and pelvis showed no acute abnormality, normal LFTs and lipase, COVID-19 negative, supportive care 4. Diabetes type 2 5. HFrEF Continue HDtoday Usual hemodialysis Sunday, last hemodialysis on Sunday Low NA low potassium diet. PO Torsemide REstart BP meds Consider Chante patch #3 Q 7 Days as pt tends to have nausea and vomiting Dr. Ruiz (2) Hypertension, uncontrolled: Status: Acute (3) Gastroparesis: Status: Acute (4) Non-compliance with renal dialysis: Status: Acute Time Spent With Patient Time: Total time managing care of this patient today ____ minutes. Progress Note: Quality Stroke Does the patient have a stroke diagnosis?: No
--- NOTE | 2022-12-18 14:19 | PC.NURSE ---
pt back from dialysis. currently vomiting, provided with rosina-bag. will medicate with prn reglan if med is due.
[2022-12-18] MEDS: Metoclopramide HCl 10 MG/2 ML VIAL 5 MG IVPUSH (15:07)
--- NOTE | 2022-12-18 15:34 | HO.PM.IMPN ---
Subjective Subjective Date of Service: 12/18/22 Interval History: Complaining of persistent nausea, vomiting, took some of the medications this morning but vomited rest of the meds , complaining of generalized pain, no fevers no chills scheduled for hemodialysis this morning blood pressure is running high. Review of Systems All other system reviewed and negative. Physical Exam Vital Signs: Vital Signs: Last Vital Signs Temp 97.5 F 12/18/22 07:38 Pulse 103 H 12/18/22 10:34 Resp 23 H 12/18/22 10:34 BP 175/94 H 12/18/22 10:34 Pulse Ox 94 12/18/22 10:34 O2 Del Method Nasal Cannula 12/18/22 10:34 O2 Flow Rate 2 12/18/22 10:34 Oxygen Flow Rate 2 12/17/22 13:52 BMI result Body Mass Index 27.4 Const: Other: Gen: Awake alert x3, in no acute distress Hemodialysis catheter right chest wall Neck: supple Lungs: clear to auscultation bilaterally Heart: regular rate and rhythm, no murmurs Abd: soft, non tender, no rebound Ext: No leg edema, trans metatarsal amputation left foot, multiple toes amputation right foot, dressing in place for left foot wound ,no drainage. Skin: warm/well-perfused Neuro: alert and oriented x3, no focal findings Psych: appropriate affect Objective Data Active Medications Acetaminophen (Acetaminophen 325 Mg Tablet) 650 mg PO Q6H PRN PRN Reason: Pain, Mild (Pain Scale 1-3) Aspirin (Aspirin Enteric Coated 81 Mg Tablet.) 81 mg PO DAILY [facility] Last Admin: 12/18/22 09:01 Dose: 81 mg Documented By: DANNA Atorvastatin Calcium (Atorvastatin Calcium 40 Mg Tablet) 40 mg PO BEDTIME [facility] Last Admin: 12/17/22 21:19 Dose: Not Given Documented By: STELLA Non-Admin Reason: Patient Refused Benzonatate (Benzonatate 100 Mg Capsule) 100 mg PO TID PRN PRN Reason: Cough Clopidogrel Bisulfate (Clopidogrel Bisulfate 75 Mg Tablet) 75 mg PO DAILY [facility] Last Admin: 12/18/22 09:00 Dose: 75 mg Documented By: DANNA Dextrose (Dextrose 50 % 25 Gm/50 Ml Syringe) 25 gm IVPUSH Q15M PRN; Protocol PRN Reason: per Hypoglycemia Standing Ord. Glucose (Glucose Gel 15 Gm Gel..Gram.) 15 gm PO Q15M PRN; Protocol PRN Reason: per Hypoglycemia Standing Ord. Heparin Sodium (Porcine) (Heparin Sodium,Porcine 5,000 Unit/Ml Vial) 5,000 unit SUBCUT Q12H [facility] Last Admin: 12/18/22 06:51 Dose: Not Given Documented By: GUERLINE Non-Admin Reason: Patient Refused Hydralazine HCl (Hydralazine Hcl 25 Mg Tablet) 75 mg PO TID [facility]; Protocol Last Admin: 12/18/22 08:56 Dose: 75 mg Documented By: DANNA Hydromorphone HCl (Hydromorphone Hcl 0.5 Mg/0.5 Ml Syringe) 0.5 mg IVPUSH Q4H PRN; Protocol PRN Reason: Pain, Severe (Pain Scale 7-10) Last Admin: 12/18/22 15:04 Dose: 0.5 mg Documented By: DANNA Insulin Human Lispro (Insulin Lispro 100 Unit/Ml 3 Ml Vial) 0 unit SUBCUT QIDACHS [facility]; Protocol Last Admin: 12/18/22 11:44 Dose: Not Given Documented By: DANNA Non-Admin Reason: Off unit: Dialysis Losartan Potassium (Losartan Potassium 25 Mg Tablet) 25 mg PO DAILY [facility]; Protocol Last Admin: 12/18/22 08:51 Dose: 25 mg Documented By: DANNA Melatonin (Melatonin 3 Mg Tablet) 3 mg PO BEDTIME PRN PRN Reason: Insomnia Metoclopramide HCl (Metoclopramide Hcl 10 Mg/2 Ml Vial) 5 mg IVPUSH Q6H PRN PRN Reason: Nausea and Vomiting Last Admin: 12/18/22 15:07 Dose: 5 mg Documented By: DANNA Nifedipine (Nifedipine Er 60 Mg Tab.Er.24) 60 mg PO DAILY [facility]; Protocol Last Admin: 12/18/22 09:59 Dose: 60 mg Documented By: DANNA Omeprazole (Omeprazole 40 Mg Capsule.) 40 mg PO DAILY@0630 [facility] Last Admin: 12/18/22 08:49 Dose: 40 mg Documented By: DANNA Oxycodone HCl (Oxycodone Hcl Immed Release 5 Mg Tablet) 5 mg PO Q6H PRN PRN Reason: severe pain Sodium Chloride (0.9 % Sodium Chloride Flush 3 Ml Syringe) 3 ml IVFLUSH QSHIFT [facility] Last Admin: 12/18/22 09:02 Dose: Not Given Documented By: DANNA Non-Admin Reason: Med Not Available Torsemide (Torsemide 20 Mg Tablet) 40 mg PO BIDWM [facility]; Protocol Last Admin: 12/18/22 08:53 Dose: 40 mg Documented By: DANNA Labs 12/17/22 14:13 12/17/22 14:13 Labs: Laboratory Results - last 24 hr 12/17/22 12/18/22 21:01 07:25 POC Glucose 90 95 Assessment and Plan (1) Hypertension, uncontrolled: Status: Acute (2) Gastroparesis: Status: Acute (3) Chronic pain: Status: Acute (4) ESRD on dialysis: Status: Acute Plan 32yo F with HTN, chronic HFrEF, DM2 with retinopathy, mood disorder, PAD s/p TMTA, ERSD on HD non-compliant here with body ache, n/v hasn't been to dialysis in more than 1 week Accelerated HTN due to non-compliant with meds/HD Blood pressure remains elevated unable to take by mouth medications due to persistent nausea no vomiting Case discussed with Dr. Greene he recommend clonidine patch 3. X7 days continue home medications , as needed clonidine for systolic blood pressure greater than 180 ESRD--on hemodialysis Sunday, last hemodialysis on Sunday, Nephro recommended hemodialysis today and repeat on Sunday in house if needed Nausea/vomitting due to gastroparesis--IV Reglan, continue PPI, CT abdomen and pelvis showed no acute abnormality, normal LFTs and lipase, COVID-19 negative, supportive care Diabetes type 2 poor by mouth intake, hold glipizide, on insulin sliding scale and diabetic diet as tolerated. HFrEF--no acute exacerbation, chronically elevated BNP, continue torsemide, and hemodialysis Generalize body ache--chronic, IV dilaudid prn and oxycodone by mouth as needed. DVT prophylaxis: heparin subQ Full code Need continued inpatient hospitalization for management of HTN emergency,uremia, and persistent nausea /vomiting unable to take by mouth medication. Time Spent With Patient Time: Total time managing care of this patient today ____ minutes. Quality Stroke Does the patient have a stroke diagnosis?: No VTE Prior VTE?: No VTE Risk Level:: Medical - moderate - high VTE Device Contraindication: Treatment Not Indicated VTE Drug Contraindication: N/A - Med Ordered
--- NOTE | 2022-12-18 15:35 | PC.NURSE ---
pt asking for pain med rating 10/10 pain. pt also nauseous and vomiting. pt medicated per apr and sts total pain relief and nausea/vomiting subsided. pt able to sleep and BP decreased from 200s over 100s. plan of care ongoing. call moore within pt reach. awaiting bed assignment.
[2022-12-18 17:21] LABS: Glucose, Whole Blood 93 mg/dL (60-115)
--- NOTE | 2022-12-18 17:25 | PC.NURSE ---
pt able to tolerate po hydralazine meds by swallowing pills whole. report called up to [facility] [place]. awaiting pt transport.
[2022-12-18] MEDS: cloNIDine 0.3 MG PATCH.TDWK TRANSDERMA (18:33)
[2022-12-18 19:46] LABS: Glucose, Whole Blood 122 mg/dL (60-115)
[2022-12-18] MEDS: diphenhydrAMINE HCL 50 MG/ML VIAL IVPUSH (22:44)
[2022-12-19] MEDS: HYDROmorphone HCl 0.5 MG/0.5 ML SYRINGE IVPUSH ×4 (03:23→20:19)
[2022-12-19 03:42] VITALS: BP 152/77; PULSE 94; RESP 19; TEMP 36.7; O2SAT 98
[2022-12-19] MEDS: diphenhydrAMINE HCL 50 MG/ML VIAL IVPUSH ×3 (03:58→19:44)
[2022-12-19 07:20] VITALS: BP 116/54; PULSE 96; RESP 20; TEMP 36.4; O2SAT 100
[2022-12-19 07:43] LABS: Glucose, Whole Blood 114 mg/dL (60-115)
[2022-12-19] MEDS: Metoclopramide HCl 10 MG/2 ML VIAL 5 MG IVPUSH (08:56)
[2022-12-19] MEDS: 0.9 % Sodium Chloride Flush 3 ML SYRINGE IVFLUSH ×2 (08:57→13:48)
[2022-12-19 09:32] LABS: Blood Urea Nitrogen 24 mg/dL (9-16); Calcium 8.3 mg/dL (8.4-10.2); Creatinine Clr Calc Pharmacy 25.3; Estimated Glomerular Filt Rate 16; Glucose Random 96 mg/dL (60-115)
[2022-12-19 09:50] LABS: Anion Gap 15 (12-20); Carbon Dioxide 20 mmol/L (22-29); Chloride 103 mmol/L (96-108); Potassium 3.4 mmol/L (3.3-5.1); Sodium 135 mmol/L (135-145)
[2022-12-19 11:18] VITALS: BP 116/69; PULSE 90; RESP 18; TEMP 36.3; O2SAT 97
[2022-12-19 11:32] LABS: Glucose, Whole Blood 149 mg/dL (60-115)
--- NOTE | 2022-12-19 12:20 | P.PNIM_ITS ---
Subjective Subjective Date of Service: 12/19/22 Interval History: Complaining of generalized itch, Benadryl helping with nausea and itching tolerated breakfast this morning, good pain control, no other acute events overnight blood pressure 116/54, denies lightheadedness or dizziness. Review of Systems All other system reviewed and negative. Physical Exam 2 Vital Signs: Vital Signs: Last Vital Signs Temp 97.4 F 12/19/22 11:18 Pulse 90 12/19/22 11:18 Resp 18 12/19/22 11:18 BP 116/69 12/19/22 11:18 Pulse Ox 97 12/19/22 11:18 O2 Del Method Nasal Cannula 12/19/22 11:18 O2 Flow Rate 2 12/19/22 11:18 FiO2 98 12/19/22 03:42 Oxygen Flow Rate 2 12/17/22 13:52 BMI result Body Mass Index 27.4 Const: Other: Gen: Awake alert x3, in no acute distress Hemodialysis catheter right chest wall Neck: supple Lungs: clear to auscultation bilaterally Heart: regular rate and rhythm, no murmurs Abd: soft, non tender, no rebound Ext: No leg edema, trans metatarsal amputation left foot, multiple toes amputation right foot, dressing in place for left foot wound ,no drainage. Skin: warm/well-perfused Neuro: alert and oriented x3, no focal findings Psych: appropriate affect Objective Data Active Medications Acetaminophen (Acetaminophen 325 Mg Tablet) 650 mg PO Q6H PRN PRN Reason: Pain, Mild (Pain Scale 1-3) Aspirin (Aspirin Enteric Coated 81 Mg Tablet.) 81 mg PO DAILY [facility] Last Admin: 12/19/22 12:11 Dose: Not Given Documented By: MIKE Non-Admin Reason: Patient Refused Atorvastatin Calcium (Atorvastatin Calcium 40 Mg Tablet) 40 mg PO BEDTIME [facility] Last Admin: 12/18/22 20:24 Dose: Not Given Documented By: LOC Non-Admin Reason: Patient Refused Benzonatate (Benzonatate 100 Mg Capsule) 100 mg PO TID PRN PRN Reason: Cough Clonidine HCl (Clonidine Hcl 0.1 Mg Tablet) 0.1 mg PO Q4H PRN; Protocol PRN Reason: for sbp >180 Clopidogrel Bisulfate (Clopidogrel Bisulfate 75 Mg Tablet) 75 mg PO DAILY [facility] Last Admin: 12/19/22 12:11 Dose: Not Given Documented By: MIKE Non-Admin Reason: Patient Refused Dextrose (Dextrose 50 % 25 Gm/50 Ml Syringe) 25 gm IVPUSH Q15M PRN; Protocol PRN Reason: per Hypoglycemia Standing Ord. Diphenhydramine HCl (Diphenhydramine Hcl 50 Mg/Ml Vial) 50 mg IVPUSH Q6H PRN PRN Reason: Itching Last Admin: 12/19/22 03:58 Dose: 50 mg Documented By: JONATHAN Glucose (Glucose Gel 15 Gm Gel..Gram.) 15 gm PO Q15M PRN; Protocol PRN Reason: per Hypoglycemia Standing Ord. Heparin Sodium (Porcine) (Heparin Sodium,Porcine 5,000 Unit/Ml Vial) 5,000 unit SUBCUT Q12H [facility] Last Admin: 12/19/22 05:56 Dose: Not Given Documented By: JONATHAN Non-Admin Reason: Patient Refused Hydralazine HCl (Hydralazine Hcl 25 Mg Tablet) 75 mg PO TID [facility]; Protocol Last Admin: 12/19/22 12:11 Dose: Not Given Documented By: MIKE Non-Admin Reason: Patient Refused Hydromorphone HCl (Hydromorphone Hcl 0.5 Mg/0.5 Ml Syringe) 0.5 mg IVPUSH Q4H PRN; Protocol PRN Reason: Pain, Severe (Pain Scale 7-10) Last Admin: 12/19/22 08:56 Dose: 0.5 mg Documented By: MIKE Insulin Human Lispro (Insulin Lispro 100 Unit/Ml 3 Ml Vial) 0 unit SUBCUT QIDACHS [facility]; Protocol Last Admin: 12/19/22 08:00 Dose: Not Given Documented By: MIKE Non-Admin Reason: No Insulin Coverage Losartan Potassium (Losartan Potassium 25 Mg Tablet) 25 mg PO DAILY [facility]; Protocol Last Admin: 12/19/22 12:12 Dose: Not Given Documented By: MIKE Non-Admin Reason: Patient Refused Melatonin (Melatonin 3 Mg Tablet) 3 mg PO BEDTIME PRN PRN Reason: Insomnia Metoclopramide HCl (Metoclopramide Hcl 10 Mg/2 Ml Vial) 5 mg IVPUSH Q6H PRN PRN Reason: Nausea and Vomiting Last Admin: 12/19/22 08:56 Dose: 5 mg Documented By: MIKE Nifedipine (Nifedipine Er 60 Mg Tab.Er.24) 60 mg PO DAILY [facility]; Protocol Last Admin: 12/18/22 09:59 Dose: 60 mg Documented By: DANNA Omeprazole (Omeprazole 40 Mg Capsule.) 40 mg PO DAILY@0630 [facility] Last Admin: 12/19/22 05:56 Dose: Not Given Documented By: JONATHAN Non-Admin Reason: Patient Refused Oxycodone HCl (Oxycodone Hcl Immed Release 5 Mg Tablet) 5 mg PO Q6H PRN PRN Reason: severe pain Sodium Chloride (0.9 % Sodium Chloride Flush 3 Ml Syringe) 3 ml IVFLUSH QSHIFT [facility] Last Admin: 12/19/22 08:57 Dose: 3 ml Documented By: MIKE Torsemide (Torsemide 20 Mg Tablet) 40 mg PO BIDWM [facility]; Protocol Last Admin: 12/19/22 12:11 Dose: Not Given Documented By: MIKE Non-Admin Reason: Patient Refused Labs 12/17/22 14:13 12/19/22 08:17 Labs: Laboratory Results - last 24 hr 12/18/22 12/18/22 12/19/22 17:09 19:41 07:18 Hold Purple Top Anion Gap Estim Creat Clear Calc Estimated GFR POC Glucose 93 122 H 114 Random Glucose Calcium 12/19/22 12/19/22 08:17 11:17 Hold Purple Top SEE NOTE Anion Gap 15 Estim Creat Clear Calc 25.3 Estimated GFR 16 POC Glucose 149 H Random Glucose 96 Calcium 8.3 L D Assessment and Plan (1) Hypertension, uncontrolled: Status: Acute (2) Gastroparesis: Status: Acute (3) Chronic pain: Status: Acute (4) ESRD on dialysis: Status: Acute Plan 32yo F with HTN, chronic HFrEF, DM2 with retinopathy, mood disorder, PAD s/p TMTA, ERSD on HD non-compliant here with body ache, n/v hasn't been to dialysis in more than 1 week Accelerated HTN due to non-compliance with meds/HD Blood pressure improved significantly with addition of clonidine 0.3 mg patch indicating noncompliance with medications Will DC hydralazine t.i.d. continue nifedipine, torsemide and losartan follow BP closely Case discussed with Dr. Gonzalez he agrees with above treatment plan. ESRD--on hemodialysis Sunday, last hemodialysis on Sunday, Seen by Nephrology underwent hemodialysis yesterday 12 18 patient declined repeat hemodialysis today therefore will undergo hemodialysis tomorrow morning Nausea/vomitting due to gastroparesis--symptoms improving tolerated breakfast this morning continue IV Reglan prn, continue PPI, CT abdomen and pelvis showed no acute abnormality, normal LFTs and lipase, COVID-19 negative, continue supportive care Diabetes type 2 poor by mouth intake, hold glipizide, on insulin sliding scale and diabetic diet as tolerated. HFrEF--no acute exacerbation, chronically elevated BNP, continue torsemide, and hemodialysis Generalize body ache--chronic, wean IV dilaudid prn and oxycodone by mouth as needed. DVT prophylaxis: heparin subQ Full code Need continued inpatient hospitalization for management of HTN emergency,uremia, and persistent nausea /vomiting close monitoring of blood pressure medication adjustment. Time Spent With Patient Time: Total time managing care of this patient today ____ minutes. Quality Stroke Does the patient have a stroke diagnosis?: No VTE Prior VTE?: No VTE Risk Level:: Medical - moderate - high VTE Device Contraindication: Treatment Not Indicated VTE Drug Contraindication: N/A - Med Ordered
[2022-12-19 15:02] VITALS: BP 116/63; PULSE 88; RESP 20; TEMP 36.3; O2SAT 93
[2022-12-19 16:05] LABS: Glucose, Whole Blood 159 mg/dL (60-115)
[2022-12-19 19:03] VITALS: BP 129/70; PULSE 91; RESP 20; TEMP 36.7; O2SAT 98
[2022-12-19 19:48] LABS: Glucose, Whole Blood 176 mg/dL (60-115)
[2022-12-19] MEDS: cloNIDine HCL 0.1 MG TABLET PO (20:19)
--- NOTE | 2022-12-19 22:07 | P.PNNP_ITS ---
Subjective Subjective Date of Service: 12/19/22 Interval history: Feels better Refused to go on HD today . Physical Exam 2 Vital Signs: Vital Signs: Last Vital Signs Temp 98.0 F 12/19/22 19:03 Pulse 91 12/19/22 19:03 Resp 20 12/19/22 19:03 BP 129/70 12/19/22 19:03 Pulse Ox 98 12/19/22 19:03 O2 Del Method Room Air 12/19/22 19:03 O2 Flow Rate 2 12/19/22 15:02 FiO2 98 12/19/22 03:42 Oxygen Flow Rate 2 12/17/22 13:52 BMI result Body Mass Index 27.4 Const: Other: Gen: Awake alert x3, in no acute distress Hemodialysis catheter right chest wall Neck: supple Lungs: clear to auscultation bilaterally Heart: regular rate and rhythm, no murmurs Abd: soft, non tender, no rebound Ext: No leg edema, trans metatarsal amputation left foot, multiple toes amputation right foot, dressing in place for left foot wound ,no drainage. Skin: warm/well-perfused Neuro: alert and oriented x3, no focal findings Psych: appropriate affect Objective Data Labs 12/17/22 14:13 12/19/22 08:17 Labs: Laboratory Results - last 24 hr 12/19/22 12/19/22 12/19/22 07:18 08:17 11:17 Hold Purple Top SEE NOTE Sodium 135 Potassium 3.4 D Chloride 103 Carbon Dioxide 20 L Anion Gap 15 BUN 24 H Creatinine 3.28 H Estim Creat Clear Calc 25.3 Estimated GFR 16 POC Glucose 114 149 H Random Glucose 96 Calcium 8.3 L D 12/19/22 12/19/22 16:01 19:45 Hold Purple Top Sodium Potassium Chloride Carbon Dioxide Anion Gap BUN Creatinine Estim Creat Clear Calc Estimated GFR POC Glucose 159 H 176 H Random Glucose Calcium Procedures Date of Service Date of Service: 12/19/22 Assessment & Plan Assessment and plan (1) ESRD on dialysis: Status: Acute Assessment and Plan: 1. 32yo F with ESRD: HTN, chronic HFrEF, DM2 with retinopathy, mood disorder, PAD s/p TMTA,: non-compliant here with body ache, n/v hasn't been to dialysis in more than 1 week 2. Accelerated HTN due to non-compliant with meds/HD Blood pressure status post IV labetalol,po hydralazine, resume home medications, shortness of breath improving. 3. Nausea/vomitting due to gastroparesis--IV Reglan, continue PPI, CT abdomen and pelvis showed no acute abnormality, normal LFTs and lipase, COVID-19 negative, supportive care 4. Diabetes type 2 5. HFrEF Pt refused HD today HD in Am Usual hemodialysis Sunday, last hemodialysis on Sunday Low NA low potassium diet. PO Torsemide BP meds and doses d/w Medical team Dr. Ruiz (2) Hypertension, uncontrolled: Status: Acute (3) Gastroparesis: Status: Acute (4) Non-compliance with renal dialysis: Status: Acute Time Spent With Patient Time: Total time managing care of this patient today ____ minutes. Progress Note: Quality Stroke Does the patient have a stroke diagnosis?: No
[2022-12-20] VITALS (7 sets, daily range): BP systolic 106–162; BP diastolic 65–89; PULSE 84–100; RESP 18–19; TEMP 36.4–37.1; O2SAT 90–99
[2022-12-20] MEDS: 0.9 % Sodium Chloride Flush 3 ML SYRINGE IVFLUSH ×3 (01:06→14:13)
[2022-12-20] MEDS: diphenhydrAMINE HCL 50 MG/ML VIAL IVPUSH ×4 (01:57→20:11)
[2022-12-20] MEDS: HYDROmorphone HCl 0.5 MG/0.5 ML SYRINGE IVPUSH ×4 (01:57→20:11)
[2022-12-20 07:21] LABS: Glucose, Whole Blood 133 mg/dL (60-115)
[2022-12-20] MEDS: Torsemide 20 MG TABLET 40 MG PO (07:55)
[2022-12-20] MEDS: cloNIDine HCL 0.1 MG TABLET PO ×2 (07:55→14:12)
[2022-12-20] MEDS: NIFEdipine ER 60 MG TAB.ER.24 PO (07:56)
[2022-12-20] MEDS: Aspirin Enteric Coated 81 MG TABLET.DR PO (07:57)
[2022-12-20 13:37] LABS: Glucose, Whole Blood 118 mg/dL (60-115)
[2022-12-20] MEDS: Metoclopramide HCl 10 MG/2 ML VIAL 5 MG IVPUSH (14:11)
--- NOTE | 2022-12-20 16:06 | HO.PM.IMPN ---
Subjective Subjective Date of Service: 12/20/22 Interval History: Complaining of pain mostly bilateral chest, generalized body ache requiring IV Dilaudid, feels not ready for discharge is scheduled for hemodialysis this morning, at home use wheelchair for ambulation, tolerating diet no nausea, no vomiting, no abdominal pain, no diarrhea. Review of Systems All other system reviewed and negative Physical Exam Vital Signs: Vital Signs: Last Vital Signs Temp 97.8 F 12/20/22 15:46 Pulse 89 12/20/22 15:46 Resp 18 12/20/22 15:46 BP 109/65 12/20/22 15:46 Pulse Ox 94 12/20/22 15:46 O2 Del Method Nasal Cannula 12/20/22 15:46 O2 Flow Rate 2 12/20/22 15:46 FiO2 98 12/19/22 03:42 Oxygen Flow Rate 2 12/17/22 13:52 BMI result Body Mass Index 27.4 Const: Other: Gen: Awake alert x3, in no acute distress Hemodialysis catheter right chest wall Neck: supple Lungs: clear to auscultation bilaterally Heart: regular rate and rhythm, no murmurs Abd: soft, non tender, no rebound Ext: No leg edema, trans metatarsal amputation left foot, multiple toes amputation right foot, dressing in place for left foot wound ,no drainage. Skin: warm/well-perfused Neuro: alert and oriented x3, no focal findings Psych: appropriate affect Objective Data Active Medications Acetaminophen (Acetaminophen 325 Mg Tablet) 650 mg PO Q6H PRN PRN Reason: Pain, Mild (Pain Scale 1-3) Aspirin (Aspirin Enteric Coated 81 Mg Tablet.) 81 mg PO DAILY [facility] [place] Last Admin: 12/20/22 07:57 Dose: 81 mg Documented By: MIKE Atorvastatin Calcium (Atorvastatin Calcium 40 Mg Tablet) 40 mg PO BEDTIME [facility] [place] Last Admin: 12/19/22 20:26 Dose: Not Given Documented By: NETO Non-Admin Reason: Patient Refused Benzonatate (Benzonatate 100 Mg Capsule) 100 mg PO TID PRN PRN Reason: Cough Clonidine HCl (Clonidine Hcl 0.1 Mg Tablet) 0.1 mg PO Q4H PRN; Protocol PRN Reason: for sbp >180 Last Admin: 12/20/22 14:12 Dose: 0.1 mg Documented By: MIKE Clopidogrel Bisulfate (Clopidogrel Bisulfate 75 Mg Tablet) 75 mg PO DAILY [facility] [place] Last Admin: 12/20/22 13:03 Dose: Not Given Documented By: MIKE Non-Admin Reason: Patient Refused Dextrose (Dextrose 50 % 25 Gm/50 Ml Syringe) 25 gm IVPUSH Q15M PRN; Protocol PRN Reason: per Hypoglycemia Standing Ord. Diphenhydramine HCl (Diphenhydramine Hcl 50 Mg/Ml Vial) 50 mg IVPUSH Q6H PRN PRN Reason: Itching Last Admin: 12/20/22 14:12 Dose: 50 mg Documented By: MIKE Glucose (Glucose Gel 15 Gm Gel..Gram.) 15 gm PO Q15M PRN; Protocol PRN Reason: per Hypoglycemia Standing Ord. Heparin Sodium (Porcine) (Heparin Sodium,Porcine 5,000 Unit/Ml Vial) 5,000 unit SUBCUT Q12H [facility] [place] Last Admin: 12/20/22 05:23 Dose: Not Given Documented By: NETO Non-Admin Reason: Patient Refused Hydromorphone HCl (Hydromorphone Hcl 0.5 Mg/0.5 Ml Syringe) 0.5 mg IVPUSH Q6H PRN; Protocol PRN Reason: Pain, Severe (Pain Scale 7-10) Last Admin: 12/20/22 14:12 Dose: 0.5 mg Documented By: MIKE Insulin Human Lispro (Insulin Lispro 100 Unit/Ml 3 Ml Vial) 0 unit SUBCUT QIDACHS [facility] [place]; Protocol Last Admin: 12/20/22 13:01 Dose: Not Given Documented By: MIKE Non-Admin Reason: Patient Refused Losartan Potassium (Losartan Potassium 25 Mg Tablet) 25 mg PO DAILY [facility] [place]; Protocol Last Admin: 12/20/22 13:04 Dose: Not Given Documented By: MIKE Non-Admin Reason: Patient Refused Melatonin (Melatonin 3 Mg Tablet) 3 mg PO BEDTIME PRN PRN Reason: Insomnia Metoclopramide HCl (Metoclopramide Hcl 10 Mg/2 Ml Vial) 5 mg IVPUSH Q6H PRN PRN Reason: Nausea and Vomiting Last Admin: 12/20/22 14:11 Dose: 5 mg Documented By: MIKE Nifedipine (Nifedipine Er 60 Mg Tab.Er.24) 60 mg PO DAILY [facility] [place]; Protocol Last Admin: 12/20/22 07:56 Dose: 60 mg Documented By: MIKE Omeprazole (Omeprazole 40 Mg Deep.) 40 mg PO DAILY@0630 [facility] [place] Last Admin: 12/20/22 05:23 Dose: Not Given Documented By: NETO Non-Admin Reason: Patient Refused Oxycodone HCl (Oxycodone Hcl Immed Release 5 Mg Tablet) 5 mg PO Q6H PRN PRN Reason: severe pain Sodium Chloride (0.9 % Sodium Chloride Flush 3 Ml Syringe) 3 ml IVFLUSH QSHIFT [facility] [place] Last Admin: 12/20/22 14:13 Dose: 3 ml Documented By: MIKE Torsemide (Torsemide 20 Mg Tablet) 40 mg PO BIDWM [facility] [place]; Protocol Last Admin: 12/20/22 07:55 Dose: 40 mg Documented By: MIKE Labs 12/17/22 14:13 12/19/22 08:17 Labs: Laboratory Results - last 24 hr 12/19/22 12/20/22 12/20/22 19:45 07:09 13:32 POC Glucose 176 H 133 H 118 H Assessment and Plan (1) Hypertension, uncontrolled: Status: Acute (2) Gastroparesis: Status: Acute (3) Chronic pain: Status: Acute (4) ESRD on dialysis: Status: Acute Plan 32yo F with HTN, chronic HFrEF, DM2 with retinopathy, mood disorder, PAD s/p TMTA, ERSD on HD non-compliant here with body ache, n/v hasn't been to dialysis in more than 1 week Accelerated HTN due to non-compliance with meds/HD Blood pressure improved significantly with addition of clonidine 0.3 mg patch indicating noncompliance with medications DC hydralazine t.i.d. continue nifedipine, torsemide and losartan follow BP closely Will discharge home on clonidine 0.3 mg patch q.week ESRD--on hemodialysis Sunday, last hemodialysis on Sunday prior to admission, Seen by Nephrology underwent hemodialysis yesterday 12/18 patient declined repeat hemodialysis 12/19 will undergo hemodialysis today Nausea/vomitting due to gastroparesis--symptoms improving tolerated diet, continue IV Reglan prn, continue PPI, CT abdomen and pelvis showed no acute abnormality, normal LFTs and lipase, COVID-19 negative, continue supportive care Diabetes type 2 poor by mouth intake, hold glipizide, on insulin sliding scale and diabetic diet as tolerated. HFrEF--no acute exacerbation, chronically elevated BNP, continue torsemide, and hemodialysis Generalize body ache--chronic, on oxycodone by mouth as needed, will wean IV Dilaudid for possible discharge at a.m.. DVT prophylaxis: heparin subQ Full code Need continued inpatient hospitalization for management of HTN emergency,uremia, requiring hemodialysis and close blood pressure monitoring. Time Spent With Patient Time: Total time managing care of this patient today ____ minutes. Quality Stroke Does the patient have a stroke diagnosis?: No VTE Prior VTE?: No VTE Risk Level:: Medical - moderate - high VTE Device Contraindication: Treatment Not Indicated VTE Drug Contraindication: N/A - Med Ordered
[2022-12-20 16:36] LABS: Glucose, Whole Blood 234 mg/dL (60-115)
--- NOTE | 2022-12-20 21:41 | P.PNNP_ITS ---
Subjective Subjective Date of Service: 12/20/22 Interval history: Seen on HD Sleepy Physical Exam 2 Vital Signs: Vital Signs: Last Vital Signs Temp 98.7 F 12/20/22 19:30 Pulse 84 12/20/22 19:30 Resp 18 12/20/22 19:30 BP 106/69 12/20/22 19:30 Pulse Ox 92 12/20/22 19:30 O2 Del Method Nasal Cannula 12/20/22 19:30 O2 Flow Rate 2 12/20/22 19:30 FiO2 98 12/19/22 03:42 Oxygen Flow Rate 2 12/17/22 13:52 BMI result Body Mass Index 27.4 Const: Other: Gen: Awake alert x3, in no acute distress Hemodialysis catheter right chest wall Neck: supple Lungs: clear to auscultation bilaterally Heart: regular rate and rhythm, no murmurs Abd: soft, non tender, no rebound Ext: No leg edema, trans metatarsal amputation left foot, multiple toes amputation right foot, dressing in place for left foot wound ,no drainage. Skin: warm/well-perfused Neuro: alert and oriented x3, no focal findings Psych: appropriate affect Objective Data Labs 12/17/22 14:13 12/19/22 08:17 Labs: Laboratory Results - last 24 hr 12/20/22 12/20/22 12/20/22 07:09 13:32 16:33 POC Glucose 133 H 118 H 234 H Procedures Date of Service Date of Service: 12/20/22 Assessment & Plan Assessment and plan (1) ESRD on dialysis: Status: Acute Assessment and Plan: 1. 32yo F with ESRD: HTN, chronic HFrEF, DM2 with retinopathy, mood disorder, PAD s/p TMTA,: non-compliant here with body ache, n/v hasn't been to dialysis in more than 1 week 2. Accelerated HTN due to non-compliant with meds/HD Blood pressure status post IV labetalol,po hydralazine, resume home medications, shortness of breath improving. 3. Nausea/vomitting due to gastroparesis--IV Reglan, continue PPI, CT abdomen and pelvis showed no acute abnormality, normal LFTs and lipase, COVID-19 negative, supportive care 4. Diabetes type 2 5. HFrEF Continue Hd today Usual hemodialysis Sunday, last hemodialysis on Sunday Low NA low potassium diet. PO Torsemide BP is low D/c'd Eliana Ruiz (2) Hypertension, uncontrolled: Status: Acute (3) Gastroparesis: Status: Acute (4) Non-compliance with renal dialysis: Status: Acute Time Spent With Patient Time: Total time managing care of this patient today ____ minutes. Progress Note: Quality Stroke Does the patient have a stroke diagnosis?: No
[2022-12-21] VITALS (7 sets, daily range): BP systolic 108–171; BP diastolic 63–105; PULSE 82–115; RESP 12–20; TEMP 35.9–37.9; O2SAT 93–100
[2022-12-21] MEDS: 0.9 % Sodium Chloride Flush 3 ML SYRINGE IVFLUSH ×3 (02:03→17:32)
[2022-12-21] MEDS: HYDROmorphone HCl 0.5 MG/0.5 ML SYRINGE IVPUSH ×3 (02:31→19:28)
[2022-12-21] MEDS: diphenhydrAMINE HCL 50 MG/ML VIAL IVPUSH ×3 (02:31→19:29)
[2022-12-21] MEDS: cloNIDine HCL 0.1 MG TABLET PO (03:00)
[2022-12-21] MEDS: Acetaminophen 325 MG TABLET 650 MG PO (09:03)
[2022-12-21] MEDS: Clopidogrel Bisulfate 75 MG TABLET PO (09:03)
[2022-12-21] MEDS: Losartan Potassium 25 MG TABLET PO (09:03)
[2022-12-21] MEDS: Torsemide 20 MG TABLET 40 MG PO ×2 (09:03→17:32)
[2022-12-21] MEDS: Aspirin Enteric Coated 81 MG TABLET.DR PO (09:03)
--- NOTE | 2022-12-21 11:48 | P.PNIM_ITS ---
Subjective Subjective Date of Service: 12/21/22 Interval History: seen and examined this morning awake, alert, eating breakfast reporting low grade fever. dry cough. no abdominal pain Review of Systems Review of Systems: Yes all other systems are reviewed and are negative Constitutional Constitutional: Denies chills and Denies fever(s) Cardiovascular Cardiovascular: Denies chest pain, Denies palpitations and Denies dyspnea Respiratory Respiratory: Reports cough and Denies dyspnea Gastrointestinal Gastrointestinal: Denies abdominal pain, Denies nausea and Denies vomiting Endocrine Endocrine: Denies palpitations Physical Exam 2 Vital Signs: Vital Signs: Last Vital Signs Temp 100.2 F 12/21/22 08:00 Pulse 115 H 12/21/22 08:00 Resp 20 12/21/22 08:00 BP 171/105 H 12/21/22 08:00 Pulse Ox 98 12/21/22 08:00 O2 Del Method Room Air 12/21/22 08:00 O2 Flow Rate 2 12/21/22 03:53 FiO2 98 12/19/22 03:42 Oxygen Flow Rate 2 12/17/22 13:52 BMI result Body Mass Index 27.4 Const: General: cooperative, comfortable, no acute distress, alert and awake Nutritional Appearance: average body habitus Orientation/consciousness: p atient oriented x3 Resp: Effort & Inspection: normal respiratory effort, able to speak in complete sentences, no respiratory distress and no use of accessory muscles Cardio: Rate: regular rate GI: Inspection: No distended Palpation (GI): Soft to palpation and nontender Skin: Other: Neuro: General: patient oriented x3, moves all extremities and CN's II-XI intact bilaterally Extrem: Other: right TMA; left foot s/p multiple toe amps General: Yes no pedal edema Objective Data Active Medications Acetaminophen (Acetaminophen 325 Mg Tablet) 650 mg PO Q6H PRN PRN Reason: Pain, Mild (Pain Scale 1-3) Last Admin: 12/21/22 09:03 Dose: 650 mg Documented By: AUBREY Aspirin (Aspirin Enteric Coated 81 Mg Tablet.) 81 mg PO DAILY [facility] Last Admin: 12/21/22 09:03 Dose: 81 mg Documented By: AUBREY Atorvastatin Calcium (Atorvastatin Calcium 40 Mg Tablet) 40 mg PO BEDTIME [facility] Last Admin: 12/20/22 20:11 Dose: Not Given Documented By: KADIE Non-Admin Reason: Patient Refused Benzonatate (Benzonatate 100 Mg Capsule) 100 mg PO TID PRN PRN Reason: Cough Clonidine HCl (Clonidine Hcl 0.1 Mg Tablet) 0.1 mg PO Q4H PRN; Protocol PRN Reason: for sbp >180 Last Admin: 12/21/22 03:00 Dose: 0.1 mg Documented By: LISA Clopidogrel Bisulfate (Clopidogrel Bisulfate 75 Mg Tablet) 75 mg PO DAILY [facility] Last Admin: 12/21/22 09:03 Dose: 75 mg Documented By: AUBREY Dextrose (Dextrose 50 % 25 Gm/50 Ml Syringe) 25 gm IVPUSH Q15M PRN; Protocol PRN Reason: per Hypoglycemia Standing Ord. Diphenhydramine HCl (Diphenhydramine Hcl 50 Mg/Ml Vial) 50 mg IVPUSH Q6H PRN PRN Reason: Itching Last Admin: 12/21/22 09:03 Dose: 50 mg Documented By: AUBREY Glucose (Glucose Gel 15 Gm Gel..Gram.) 15 gm PO Q15M PRN; Protocol PRN Reason: per Hypoglycemia Standing Ord. Heparin Sodium (Porcine) (Heparin Sodium,Porcine 5,000 Unit/Ml Vial) 5,000 unit SUBCUT Q12H [facility] Last Admin: 12/21/22 07:09 Dose: Not Given Documented By: LISA Non-Admin Reason: Patient Refused Hydromorphone HCl (Hydromorphone Hcl 0.5 Mg/0.5 Ml Syringe) 0.5 mg IVPUSH Q6H PRN; Protocol PRN Reason: Pain, Severe (Pain Scale 7-10) Last Admin: 12/21/22 09:04 Dose: 0.5 mg Documented By: AUBREY Insulin Human Lispro (Insulin Lispro 100 Unit/Ml 3 Ml Vial) 0 unit SUBCUT QIDACHS [facility]; Protocol Last Admin: 12/21/22 08:48 Dose: Not Given Documented By: AUBREY Non-Admin Reason: Patient Refused Losartan Potassium (Losartan Potassium 25 Mg Tablet) 25 mg PO DAILY [facility]; Protocol Last Admin: 12/21/22 09:03 Dose: 25 mg Documented By: AUBREY Melatonin (Melatonin 3 Mg Tablet) 3 mg PO BEDTIME PRN PRN Reason: Insomnia Metoclopramide HCl (Metoclopramide Hcl 10 Mg/2 Ml Vial) 5 mg IVPUSH Q6H PRN PRN Reason: Nausea and Vomiting Last Admin: 12/20/22 14:11 Dose: 5 mg Documented By: MIKE Omeprazole (Omeprazole 40 Mg Capsule.) 40 mg PO DAILY@0630 [facility] Last Admin: 12/21/22 08:48 Dose: Not Given Documented By: AUBREY Non-Admin Reason: Patient Refused Oxycodone HCl (Oxycodone Hcl Immed Release 5 Mg Tablet) 5 mg PO Q6H PRN PRN Reason: severe pain Sodium Chloride (0.9 % Sodium Chloride Flush 3 Ml Syringe) 3 ml IVFLUSH QSHIFT [facility] Last Admin: 12/21/22 09:03 Dose: 3 ml Documented By: AUBREY Torsemide (Torsemide 20 Mg Tablet) 40 mg PO BIDWM [facility]; Protocol Last Admin: 12/21/22 09:03 Dose: 40 mg Documented By: AUBREY Labs 12/17/22 14:13 12/19/22 08:17 Labs: Laboratory Results - last 24 hr 12/20/22 12/20/22 13:32 16:33 POC Glucose 118 H 234 H Assessment and Plan (1) Hypertension, uncontrolled: Status: Acute Plan 32yo F with HTN, chronic HFrEF, DM2 with retinopathy, mood disorder, PAD s/p TMTA, ERSD on HD non-compliant here with body ache, n/v hasn't been to dialysis in more than 1 week Accelerated HTN due to non-compliance with meds/HD BP improved after resuming home meds, bp on softer side yesterday and hydralazine and nifedipine d/c continue torsemide and losartan follow bp closely prn clonidine ESRD--on hemodialysis Sunday Seen by Nephrology underwent hemodialysis, resume MWF schedule Nausea/vomiting due to gastroparesis--symptoms improving tolerated diet, continue IV Reglan prn, continue PPI, CT abdomen and pelvis showed no acute abnormality, normal LFTs and lipase, COVID-19 negative, continue supportive care. declined EGD on last admission Diabetes type 2 poor by mouth intake, hold glipizide, on insulin sliding scale and diabetic diet as tolerated. HFrEF--no acute exacerbation, chronically elevated BNP, continue torsemide, and hemodialysis Generalize body ache--chronic, on oxycodone by mouth as needed, will wean IV Dilaudid for possible discharge at a.m.. DVT prophylaxis: heparin subQ Full code attending - dr. healy Need continued inpatient hospitalization for management of HTN emergency,uremia, requiring hemodialysis and close blood pressure monitoring. Time Spent With Patient Time: Total time managing care of this patient today ____ minutes. Quality Stroke Does the patient have a stroke diagnosis?: No VTE Prior VTE?: No VTE Risk Level:: Medical - moderate - high VTE Device Contraindication: Treatment Not Indicated VTE Drug Contraindication: N/A - Med Ordered
[2022-12-21 12:00] LABS: Glucose, Whole Blood 203 mg/dL (60-115)
[2022-12-21] MEDS: Insulin Lispro 100 UNIT/ML 3 ML VIAL SUBCUT ×2 (13:06→20:37)
[2022-12-21] MEDS: cloNIDine 0.1 MG PATCH.TDWK TRANSDERMA (13:55)
--- NOTE | 2022-12-21 15:02 | MHC.CM.PN ---
CM received a call from Mercedes [facility], who indicated that Patient's HD schedule has changed to Q //SUN with an arrival time of 11:15 AM. CM met with Patient and verbally and in writing provided Patient with this information. Patient stated, ok.
--- NOTE | 2022-12-21 15:06 | MHC.CM.PN ---
ADDENDUM to pervious note: CM has let JOVON/Angela know about the change in Patient's HD schedule.
--- NOTE | 2022-12-21 15:31 | PC.NURSE ---
wound dressing done on left foot : cleansed with normal saline , silver alginate applied to the wound bed, barier cream applied around wound ,covered with 2x2 and wrapped with kerlix
[2022-12-21 16:41] LABS: Glucose, Whole Blood 83 mg/dL (60-115)
[2022-12-21 20:31] LABS: Glucose, Whole Blood 166 mg/dL (60-115)
--- NOTE | 2022-12-21 23:01 | P.PNNP_ITS ---
Subjective Subjective Date of Service: 12/21/22 Interval history: seen and examined this morning awake, alert reporting neck pain Physical Exam 2 Vital Signs: Vital Signs: Last Vital Signs Temp 97.4 F 12/21/22 19:16 Pulse 85 12/21/22 19:16 Resp 14 12/21/22 19:16 BP 126/73 12/21/22 19:16 Pulse Ox 100 12/21/22 19:16 O2 Del Method Nasal Cannula 12/21/22 19:16 O2 Flow Rate 3 12/21/22 19:16 FiO2 98 12/19/22 03:42 Oxygen Flow Rate 2 12/17/22 13:52 BMI result Body Mass Index 27.4 Const: Other: Gen: Awake alert x3, in no acute distress Hemodialysis catheter right chest wall Neck: supple Lungs: clear to auscultation bilaterally Heart: regular rate and rhythm, no murmurs Abd: soft, non tender, no rebound Ext: No leg edema, trans metatarsal amputation left foot, multiple toes amputation right foot, dressing in place for left foot wound ,no drainage. Skin: warm/well-perfused Neuro: alert and oriented x3, no focal findings Psych: appropriate affect Objective Data Labs 12/17/22 14:13 12/19/22 08:17 Labs: Laboratory Results - last 24 hr 12/21/22 12/21/22 12/21/22 11:52 16:21 20:25 POC Glucose 203 H 83 166 H Procedures Date of Service Date of Service: 12/21/22 Assessment & Plan Assessment and plan (1) ESRD on dialysis: Status: Acute Assessment and Plan: 1. 32yo F with ESRD: HTN, chronic HFrEF, DM2 with retinopathy, mood disorder, PAD s/p TMTA,: non-compliant here with body ache, n/v hasn't been to dialysis in more than 1 week 2. Accelerated HTN due to non-compliant with meds/HD Blood pressure status post IV labetalol,po hydralazine, resume home medications, shortness of breath improving. 3. Nausea/vomitting due to gastroparesis--IV Reglan, continue PPI, CT abdomen and pelvis showed no acute abnormality, normal LFTs and lipase, COVID-19 negative, supportive care 4. Diabetes type 2 5. HFrEF HD in AM Usual hemodialysis Sunday, last hemodialysis on Sunday Low NA low potassium diet. PO Torsemide BP is stable Clonidine patch Dr. Ruiz (2) Non-compliance with renal dialysis: Status: Acute (3) Hypertension, uncontrolled: Status: Acute (4) Gastroparesis: Status: Acute Time Spent With Patient Time: Total time managing care of this patient today ____ minutes. Progress Note: Quality Stroke Does the patient have a stroke diagnosis?: No
--- NOTE | 2022-12-21 23:07 | P.PNNP_ITS ---
Subjective Subjective Date of Service: 12/21/22 Interval history: seen and examined this morning awake, alert reporting neck pain Physical Exam 2 Vital Signs: Vital Signs: Last Vital Signs Temp 97.4 F 12/21/22 19:16 Pulse 85 12/21/22 19:16 Resp 14 12/21/22 19:16 BP 126/73 12/21/22 19:16 Pulse Ox 100 12/21/22 19:16 O2 Del Method Nasal Cannula 12/21/22 19:16 O2 Flow Rate 3 12/21/22 19:16 FiO2 98 12/19/22 03:42 Oxygen Flow Rate 2 12/17/22 13:52 BMI result Body Mass Index 27.4 Objective Data Labs 12/17/22 14:13 12/19/22 08:17 Labs: Laboratory Results - last 24 hr 12/21/22 12/21/22 12/21/22 11:52 16:21 20:25 POC Glucose 203 H 83 166 H Procedures Date of Service Date of Service: 12/21/22 Assessment & Plan Assessment and plan (1) ESRD on dialysis: Status: Acute Assessment and Plan: 1. 32yo F with ESRD: HTN, chronic HFrEF, DM2 with retinopathy, mood disorder, PAD s/p TMTA,: non-compliant here with body ache, n/v hasn't been to dialysis in more than 1 week 2. Accelerated HTN due to non-compliant with meds/HD Blood pressure status post IV labetalol,po hydralazine, resume home medications, shortness of breath improving. 3. Nausea/vomitting due to gastroparesis--IV Reglan, continue PPI, CT abdomen and pelvis showed no acute abnormality, normal LFTs and lipase, COVID-19 negative, supportive care 4. Diabetes type 2 5. HFrEF HD in AM Usual hemodialysis Sunday, last hemodialysis on Sunday Low NA low potassium diet. PO Torsemide BP is stable Clonidine patch Dr. Ruiz (2) Non-compliance with renal dialysis: Status: Acute (3) Hypertension, uncontrolled: Status: Acute (4) Gastroparesis: Status: Acute Time Spent With Patient Time: Total time managing care of this patient today ____ minutes. Progress Note: Quality Stroke Does the patient have a stroke diagnosis?: No
[2022-12-22] VITALS (8 sets, daily range): BP systolic 142–190; BP diastolic 95–110; PULSE 93–113; RESP 19–22; TEMP 36.2–36.8; O2SAT 95–100
[2022-12-22] MEDS: 0.9 % Sodium Chloride Flush 3 ML SYRINGE IVFLUSH ×3 (00:08→19:45)
[2022-12-22] MEDS: HYDROmorphone HCl 0.5 MG/0.5 ML SYRINGE IVPUSH ×4 (01:12→18:30)
[2022-12-22] MEDS: diphenhydrAMINE HCL 50 MG/ML VIAL IVPUSH ×4 (01:12→19:45)
[2022-12-22 07:55] LABS: Glucose, Whole Blood 179 mg/dL (60-115)
[2022-12-22] MEDS: Insulin Lispro 100 UNIT/ML 3 ML VIAL SUBCUT ×2 (08:09→21:44)
[2022-12-22] MEDS: Aspirin Enteric Coated 81 MG TABLET.DR PO (08:10)
[2022-12-22] MEDS: Losartan Potassium 25 MG TABLET PO (08:10)
[2022-12-22] MEDS: Torsemide 20 MG TABLET 40 MG PO ×2 (08:10→17:25)
[2022-12-22] MEDS: Clopidogrel Bisulfate 75 MG TABLET PO (08:11)
[2022-12-22 11:27] LABS: Glucose, Whole Blood 131 mg/dL (60-115)
[2022-12-22] MEDS: cloNIDine HCL 0.1 MG TABLET PO ×2 (11:58→17:25)
--- NOTE | 2022-12-22 12:31 | P.DS_ITS ---
DS: Providers Provider Date of Service: 12/22/22 Date of admission: 12/17/22 17:00 Date of discharge: 12/22/22 Primary care physician: Abdon Beard MD Consults: 12/17/22 17:08 Consult to Nephrology Routine Consulting Provider: Jason Sanchez Reason for consultation: ckd missed HD Has provider been notified: No Attending physician on discharge: Efraín Weeks Discharging clinician: Angela Ulloa DS: Diagnosis Discharge Diagnosis (1) Hypertension, uncontrolled: Status: Acute (2) ESRD on dialysis: Status: Acute (3) Non-compliance with renal dialysis: Status: Acute (4) Gastroparesis: Status: Acute DS: Summary Hospital Course Hospital Course: From H&P on day of admission 32-year-old female patient with past medical history of end-stage renal disease on hemodialysis Sunday, coronary artery disease, CHF, diabetes mellitus with gastroparesis, nephropathy and retinopathy and legally blind presented to [facility] due to symptoms of nausea vomiting of few days duration unable to take her medications also complaining of generalized body ache, back pain, complaining of cough and shortness of breath, no fevers, no chills complaining of headache, dizziness, denies sick contacts, wheelchair bound,she skipped hemodialysis on Sunday, last hemodialysis was on Sunday, patient has history of noncompliance with meds and hemodialysis requiring hospitalization for inpatient hemodialysis, on arrival blood pressure 212/101, afebrile, respiratory rate 16 pulse is 109, finger oximetry 97 on room air, chest x-ray unremarkable, abdominal CT showed no nephrolithiasis or hydronephrosis moderate right pleural it effusion, moderate pelvic free fluid generalized anasarca consistent with or fluid overload, enlarged liver, in ED treated with IV labetalol 10 mg, PO hydralazine 75 mg, IV Dilaudid and IV droperidol, patient blood pressure and shortness of breath improved now being admitted to [facility] for hemodialysis and pain management since unable to keep medicines and food down due to persistent nausea vomiting in relation to gastroparesis. Accelerated HTN due to non-compliance with meds/HD Home medications were resume and patient's blood pressure went down to 106/69, therefore hydralazine and nifedipine were discontinued. She was started on clondidine patch. She was continued on home doses of torsemide and losartan. Blood pressure improved. ESRD-Patient underwent dilaysis during hospitalization including on the day of discharge. Her outpatient dialysis sessions were changed to Sunday, , Sunday at 11:15, she is aware of this change. Nausea/vomiting due to gastroparesis-symptoms improving and she is tolerating a diet, continue IV Reglan prn, continue PPI, CT abdomen and pelvis showed no acute abnormality, normal LFTs and lipase, COVID-19 negative, continue supportive care. declined EGD on last admission Chronic foot wound. no surrounding erythema, no significant drainage. continue local wound care and she says she follows up in the wound care center. Time Spent with Patient Time attestation: Total time managing care of this patient today ____ minutes. Discharge coordination time: Greater than 30 minutes Quality: Safe Use of Opioids Does Pt have an Active Cancer Diagnosis on the Problem List?: No Quality: Stroke Does the patient have a stroke diagnosis?: No Physical Exam 2 Vital Signs: Vital Signs: Last Vital Signs Temp 98.0 F 12/22/22 11:58 Pulse 113 H 12/22/22 11:58 Resp 22 H 12/22/22 11:58 BP 190/102 H 12/22/22 11:58 Pulse Ox 95 12/22/22 11:58 O2 Del Method Room Air 12/22/22 11:58 O2 Flow Rate 3 12/21/22 23:21 FiO2 98 12/19/22 03:42 Oxygen Flow Rate 2 12/17/22 13:52 BMI result Body Mass Index 27.4 Const: General: cooperative, comfortable, no acute distress, alert and awake Nutritional Appearance: average body habitus Orientation/consciousness: p atient oriented x3 Resp: Effort & Inspection: normal respiratory effort, able to speak in complete sentences, no respiratory distress and no use of accessory muscles Cardio: Rate: regular rate GI: Inspection: No distended Palpation (GI): Soft to palpation and nontender Skin: Other: Neuro: General: patient oriented x3, moves all extremities and CN's II-XI intact bilaterally Extrem: Other: right TMA; left foot s/p multiple toe amps General: Yes no pedal edema DS: Data Data Completed and Pending Completed studies during hospitalization [Text1]: Procedures Detachment at Right Foot, Partial 1st Ray, Open Approach (03/01/20) Detachment at Right Foot, Partial 2nd Ray, Open Approach (03/01/20) Detachment at Right Foot, Partial 3rd Ray, Open Approach (03/01/20) Detachment at Right Foot, Partial 4th Ray, Open Approach (03/01/20) Detachment at Right Foot, Partial 5th Ray, Open Approach (03/01/20) Drainage of Right Pleural Cavity, Percutaneous Approach (01/14/21) Excision of Left Foot Skin, External Approach (10/22/22) Excision of Stomach, Pylorus, Via Natural or Artificial Opening Endoscopic, Diagnostic (08/27/22) Fluoroscopy of Superior Vena Cava, Guidance (08/14/22) Insertion of Infusion Device into Right Atrium, Percutaneous Approach (08/14/22) Insertion of Infusion Device into Superior Vena Cava, Percutaneous Approach (01/14/21) Insertion of Tunneled Vascular Access Device into Chest Subcutaneous Tissue and Fascia, Percutaneous Approach (08/14/22) Performance of Urinary Filtration, Intermittent, Less than 6 Hours Per Day (11/28/22) Removal of Infusion Device from Great Vessel, External Approach (01/14/21) Transfusion of Nonautologous Red Blood Cells into Peripheral Vein, Percutaneous Approach (04/22/22) Labs on day of discharge: Laboratory Results - last 24 hr 12/21/22 12/21/22 12/22/22 16:21 20:25 07:35 POC Glucose 83 166 H 179 H 12/22/22 11:15 POC Glucose 131 H Discharge Plan Discharge Patient Disposition: Home, Self-Care Discharge Diagnosis: uncontrolled HTN ESRD on HD Referrals: Abdon Beard MD [Primary Care Provider] - 1 Week Discharge Medications: New clonidine 0.1 mg/24 hr Patch Weekly 0.1 mg transdermal Th@0900 Qty: 4 0RF Protocol: Hold for SBP< HOLD for SBP < : 90 Continued oxycodone 5 mg tablet 5 mg PO Q6H PRN (Reason: severe pain) Qty: 20 0RF metoclopramide HCl 5 mg Tablet 5 mg PO TIDAC 30 Days Qty: 90 0RF atorvastatin 40 mg Tablet 40 mg PO BEDTIME Qty: 90 0RF clopidogrel 75 mg Tablet 75 mg PO DAILY Qty: 90 0RF aspirin 81 mg Tablet,Delayed Release (Dr/Ec) 81 mg PO DAILY Qty: 90 0RF losartan 25 mg Tablet 25 mg PO DAILY Qty: 90 0RF Protocol: Hold for SBP< HOLD for SBP < : 90 omeprazole 40 mg Capsule,Delayed Release(Dr/Ec) 40 mg PO DAILY@0630 Qty: 90 0RF torsemide 20 mg tablet 40 mg PO BID Qty: 180 0RF glipizide 2.5 mg tablet extended release 24hr 2.5 mg PO DAILY Qty: 90 0RF Discontinued hydralazine 25 mg tablet 75 mg PO TID nifedipine 60 mg tablet extended release 24hr 60 mg PO DAILY Qty: 90 0RF Activity on Discharge: As tolerated Stand Alone Forms: Patient Portal Discharge page Care Plan Goals: see below Health Concerns: uncontrolled blood pressure ESRD on HD chronic pain Plan of Treatment: Blood pressure medication has been adjusted - stop taking nifedipine and hydralazine. start using clonidine patch as directed your regular dialysis days were changed to Sunday, , Sunday with arrival time of 11:15 as discussed call to schedule follow up appointment with software licensing specialist. follow up with PCP as needed continue taking all other medications as prescribed Assessment: see discharge summary
--- NOTE | 2022-12-22 16:09 | MHC.CM.PN ---
EMR reviewed and per MD rounds, anticipating pt will D/C today after HD as long as BP within normal limits. Pts sister to transport her home.
[2022-12-22 16:36] LABS: Glucose, Whole Blood 126 mg/dL (60-115)
--- NOTE | 2022-12-22 17:29 | P.PNIM_ITS ---
Subjective Subjective Date of Service: 12/22/22 Interval History: seen and examined this morning follow up for HTN worried about leaving due to high bp no sob, chest pain, fever or chills Review of Systems Review of Systems: Yes all other systems are reviewed and are negative Constitutional Constitutional: Denies chills and Denies fever(s) Cardiovascular Cardiovascular: Denies chest pain, Denies palpitations and Denies dyspnea Respiratory Respiratory: Denies cough and Denies dyspnea Gastrointestinal Gastrointestinal: Denies abdominal pain, Denies nausea and Denies vomiting Endocrine Endocrine: Denies palpitations Physical Exam 2 Vital Signs: Vital Signs: Last Vital Signs Temp 98.0 F 12/22/22 11:58 Pulse 101 H 12/22/22 13:41 Resp 22 H 12/22/22 11:58 BP 182/108 H 12/22/22 17:24 Pulse Ox 95 12/22/22 11:58 O2 Del Method Room Air 12/22/22 11:58 O2 Flow Rate 3 12/21/22 23:21 FiO2 98 12/19/22 03:42 Oxygen Flow Rate 2 12/17/22 13:52 BMI result Body Mass Index 27.4 Const: General: cooperative, comfortable, no acute distress, alert and awake Nutritional Appearance: average body habitus Orientation/consciousness: p atient oriented x3 Resp: Effort & Inspection: normal respiratory effort, able to speak in complete sentences, no respiratory distress and no use of accessory muscles Cardio: Rate: regular rate GI: Inspection: No distended Palpation (GI): Soft to palpation and nontender Skin: Other: Neuro: General: patient oriented x3, moves all extremities and CN's II-XI intact bilaterally Extrem: Other: right TMA; left foot s/p multiple toe amps General: Yes no pedal edema Objective Data Active Medications Acetaminophen (Acetaminophen 325 Mg Tablet) 650 mg PO Q6H PRN PRN Reason: Pain, Mild (Pain Scale 1-3) Last Admin: 12/21/22 09:03 Dose: 650 mg Documented By: AUBREY Aspirin (Aspirin Enteric Coated 81 Mg Tablet.) 81 mg PO DAILY [facility] Last Admin: 12/22/22 08:10 Dose: 81 mg Documented By: NEEMA Atorvastatin Calcium (Atorvastatin Calcium 40 Mg Tablet) 40 mg PO BEDTIME [facility] Last Admin: 12/21/22 19:33 Dose: Not Given Documented By: DAE Non-Admin Reason: Patient Refused Benzonatate (Benzonatate 100 Mg Capsule) 100 mg PO TID PRN PRN Reason: Cough Clonidine (Clonidine 0.1 Mg Patch.Tdwk) 0.1 mg TRANSDERMA Th@0900 [facility]; Protocol Last Admin: 12/21/22 13:55 Dose: 0.1 mg Documented By: PER Clonidine HCl (Clonidine Hcl 0.1 Mg Tablet) 0.1 mg PO Q4H PRN; Protocol PRN Reason: for sbp >180 Last Admin: 12/22/22 17:25 Dose: 0.1 mg Documented By: NEEMA Clopidogrel Bisulfate (Clopidogrel Bisulfate 75 Mg Tablet) 75 mg PO DAILY [facility] Last Admin: 12/22/22 08:11 Dose: 75 mg Documented By: NEEMA Dextrose (Dextrose 50 % 25 Gm/50 Ml Syringe) 25 gm IVPUSH Q15M PRN; Protocol PRN Reason: per Hypoglycemia Standing Ord. Diphenhydramine HCl (Diphenhydramine Hcl 50 Mg/Ml Vial) 50 mg IVPUSH Q6H PRN PRN Reason: Itching Last Admin: 12/22/22 13:38 Dose: 50 mg Documented By: NEEMA Glucose (Glucose Gel 15 Gm Gel..Gram.) 15 gm PO Q15M PRN; Protocol PRN Reason: per Hypoglycemia Standing Ord. Heparin Sodium (Porcine) (Heparin Sodium,Porcine 5,000 Unit/Ml Vial) 5,000 unit SUBCUT Q12H [facility] Last Admin: 12/22/22 05:24 Dose: Not Given Documented By: SAMSON Non-Admin Reason: Patient Refused Hydromorphone HCl (Hydromorphone Hcl 0.5 Mg/0.5 Ml Syringe) 0.5 mg IVPUSH Q6H PRN; Protocol PRN Reason: Pain, Severe (Pain Scale 7-10) Last Admin: 12/22/22 11:57 Dose: 0.5 mg Documented By: NEEMA Insulin Human Lispro (Insulin Lispro 100 Unit/Ml 3 Ml Vial) 0 unit SUBCUT QIDACHS [facility]; Protocol Last Admin: 12/22/22 17:25 Dose: Not Given Documented By: NEEMA Non-Admin Reason: No Insulin Coverage Losartan Potassium (Losartan Potassium 25 Mg Tablet) 25 mg PO DAILY [facility]; Protocol Last Admin: 12/22/22 08:10 Dose: 25 mg Documented By: NEEMA Melatonin (Melatonin 3 Mg Tablet) 3 mg PO BEDTIME PRN PRN Reason: Insomnia Metoclopramide HCl (Metoclopramide Hcl 10 Mg/2 Ml Vial) 5 mg IVPUSH Q6H PRN PRN Reason: Nausea and Vomiting Last Admin: 12/20/22 14:11 Dose: 5 mg Documented By: MIKE Omeprazole (Omeprazole 40 Mg Capsule.) 40 mg PO DAILY@0630 [facility] Last Admin: 12/22/22 05:25 Dose: Not Given Documented By: SAMSON Non-Admin Reason: Patient Refused Sodium Chloride (0.9 % Sodium Chloride Flush 3 Ml Syringe) 3 ml IVFLUSH QSHIFT [facility] Last Admin: 12/22/22 17:04 Dose: Not Given Documented By: NEEMA Non-Admin Reason: Pt in HD Torsemide (Torsemide 20 Mg Tablet) 40 mg PO BIDWM [facility]; Protocol Last Admin: 12/22/22 17:25 Dose: 40 mg Documented By: NEEMA Labs 12/17/22 14:13 12/19/22 08:17 Labs: Laboratory Results - last 24 hr 12/21/22 12/22/22 12/22/22 20:25 07:35 11:15 POC Glucose 166 H 179 H 131 H 12/22/22 16:31 POC Glucose 126 H Assessment and Plan (1) Hypertension, uncontrolled: Status: Acute Plan 32yo F with HTN, chronic HFrEF, DM2 with retinopathy, mood disorder, PAD s/p TMTA, ERSD on HD non-compliant here with body ache, n/v hasn't been to dialysis in more than 1 week Accelerated HTN due to non-compliance with meds/HD BP improved after resuming home meds, bp on softer side yesterday and hydralazine and nifedipine d/c BP trending up today but should improve after dialysis continue torsemide and losartan started on clonidine patch 12/21 follow bp closely prn clonidine ESRD--on hemodialysis Sunday Seen by Nephrology underwent hemodialysis, resume MWF schedule Nausea/vomiting due to gastroparesis--symptoms improving tolerated diet, continue IV Reglan prn, continue PPI, CT abdomen and pelvis showed no acute abnormality, normal LFTs and lipase, COVID-19 negative, continue supportive care. declined EGD on last admission Diabetes type 2 poor by mouth intake, hold glipizide, on insulin sliding scale and diabetic diet as tolerated. HFrEF--no acute exacerbation, chronically elevated BNP, continue torsemide, and hemodialysis Generalize body ache--chronic, on oxycodone by mouth as needed, will wean IV Dilaudid for possible discharge at a.m.. DVT prophylaxis: heparin subQ Full code attending - dr. healy Need continued inpatient hospitalization for management of uncontrolled HTN Time Spent With Patient Time: Total time managing care of this patient today ____ minutes. Quality Stroke Does the patient have a stroke diagnosis?: No VTE Prior VTE?: No VTE Risk Level:: Medical - moderate - high VTE Device Contraindication: Treatment Not Indicated VTE Drug Contraindication: N/A - Med Ordered
--- NOTE | 2022-12-22 18:40 | PC.NURSE ---
JOVON Ulloa Made aware of Pts HTN. BP at 1716 was 182/108, PRN Clonidine given. BP recheck at 1834 was 176/110, JOVON made aware.
[2022-12-22] MEDS: Labetalol HCL 100 MG/20 ML VIAL 10 MG IVPUSH (19:44)
[2022-12-22 20:53] LABS: Glucose, Whole Blood 160 mg/dL (60-115)
--- NOTE | 2022-12-22 22:23 | P.PNNP_ITS ---
Subjective Subjective Date of Service: 12/22/22 Interval history: seen and examined this morning Seen on HD BP is high worried about leaving due to high bp no sob, chest pain, fever or chills Physical Exam 2 Vital Signs: Vital Signs: Last Vital Signs Temp 97.7 F 12/22/22 19:27 Pulse 93 12/22/22 19:27 Resp 20 12/22/22 19:27 BP 187/100 H 12/22/22 19:27 Pulse Ox 99 12/22/22 19:27 O2 Del Method Nasal Cannula 12/22/22 19:27 O2 Flow Rate 2 12/22/22 19:27 FiO2 98 12/19/22 03:42 Oxygen Flow Rate 2 12/17/22 13:52 BMI result Body Mass Index 27.4 Const: Other: Gen: Awake alert x3, in no acute distress Hemodialysis catheter right chest wall Neck: supple Lungs: clear to auscultation bilaterally Heart: regular rate and rhythm, no murmurs Abd: soft, non tender, no rebound Ext: No leg edema, trans metatarsal amputation left foot, multiple toes amputation right foot, dressing in place for left foot wound ,no drainage. Skin: warm/well-perfused Neuro: alert and oriented x3, no focal findings Psych: appropriate affect Objective Data Labs 12/17/22 14:13 12/19/22 08:17 Labs: Laboratory Results - last 24 hr 12/22/22 12/22/22 12/22/22 07:35 11:15 16:31 POC Glucose 179 H 131 H 126 H 12/22/22 20:07 POC Glucose 160 H Procedures Date of Service Date of Service: 12/22/22 Assessment & Plan Assessment and plan (1) ESRD on dialysis: Status: Acute Assessment and Plan: 1. 32yo F with ESRD: HTN, chronic HFrEF, DM2 with retinopathy, mood disorder, PAD s/p TMTA,: non-compliant 2. Accelerated HTN due to non-compliant with meds/HD Blood pressure status post IV labetalol,po hydralazine, resume home medications, shortness of breath improving. 3. Nausea/vomitting due to gastroparesis--IV Reglan, continue PPI, CT abdomen and pelvis showed no acute abnormality, normal LFTs and lipase, COVID-19 negative, supportive care 4. Diabetes type 2 5. HFrEF Contineu HD today TYSHAWN is high Will increase losartan to 50 mg daily > ordered for AM >Can increase to 100 mg daily Clonidine patch / PO torsemide Usual hemodialysis Sunday, last hemodialysis on Sunday Low NA low potassium diet. PO Torsemide Clonidine patch Dr. Ruiz (2) Hypertension, uncontrolled: Status: Acute (3) Non-compliance with renal dialysis: Status: Acute (4) Gastroparesis: Status: Acute Time Spent With Patient Time: Total time managing care of this patient today ____ minutes. Progress Note: Quality Stroke Does the patient have a stroke diagnosis?: No
[2022-12-23] VITALS (9 sets, daily range): BP systolic 125–178; BP diastolic 88–102; PULSE 85–99; RESP 15–20; TEMP 36.3–37; O2SAT 96–100
[2022-12-23] MEDS: HYDROmorphone HCl 0.5 MG/0.5 ML SYRINGE IVPUSH ×4 (00:03→22:23)
[2022-12-23] MEDS: cloNIDine HCL 0.1 MG TABLET PO (00:03)
[2022-12-23 08:14] LABS: Glucose, Whole Blood 167 mg/dL (60-115)
[2022-12-23] MEDS: diphenhydrAMINE HCL 50 MG/ML VIAL IVPUSH ×2 (10:24→20:52)
[2022-12-23] MEDS: Metoclopramide HCl 10 MG/2 ML VIAL 5 MG IVPUSH (10:24)
[2022-12-23] MEDS: Benzonatate 100 MG CAPSULE PO (10:30)
[2022-12-23] MEDS: Losartan Potassium 50 MG TABLET PO (10:30)
[2022-12-23] MEDS: Torsemide 20 MG TABLET 40 MG PO ×2 (10:30→16:10)
[2022-12-23] MEDS: Aspirin Enteric Coated 81 MG TABLET.DR PO (10:31)
[2022-12-23] MEDS: 0.9 % Sodium Chloride Flush 3 ML SYRINGE IVFLUSH ×3 (10:32→20:53)
[2022-12-23] MEDS: Clopidogrel Bisulfate 75 MG TABLET PO (10:33)
[2022-12-23] MEDS: Insulin Lispro 100 UNIT/ML 3 ML VIAL SUBCUT ×3 (10:35→17:56)
[2022-12-23 11:23] LABS: Glucose, Whole Blood 233 mg/dL (60-115)
--- NOTE | 2022-12-23 11:40 | HO.PM.IMPN ---
Subjective Subjective Date of Service: 12/23/22 Interval History: seen and examined this morning follow up for HTN able to eat no sob, chest pain, fever or chills Review of Systems Review of Systems: Yes all other systems are reviewed and are negative Constitutional Constitutional: Denies chills and Denies fever(s) Cardiovascular Cardiovascular: Denies chest pain, Denies palpitations and Denies dyspnea Respiratory Respiratory: Denies cough and Denies dyspnea Gastrointestinal Gastrointestinal: Denies abdominal pain, Denies nausea and Denies vomiting Endocrine Endocrine: Denies palpitations Physical Exam Vital Signs: Vital Signs: Last Vital Signs Temp 97.8 F 12/23/22 11:01 Pulse 99 12/23/22 11:01 Resp 18 12/23/22 11:01 BP 125/93 H 12/23/22 11:01 Pulse Ox 100 12/23/22 11:01 O2 Del Method Nasal Cannula 12/23/22 11:01 O2 Flow Rate 2 12/23/22 11:01 FiO2 98 12/19/22 03:42 Oxygen Flow Rate 2 12/17/22 13:52 BMI result Body Mass Index 27.4 Objective Data Active Medications Acetaminophen (Acetaminophen 325 Mg Tablet) 650 mg PO Q6H PRN PRN Reason: Pain, Mild (Pain Scale 1-3) Last Admin: 12/21/22 09:03 Dose: 650 mg Documented By: AUBREY Aspirin (Aspirin Enteric Coated 81 Mg Tablet.) 81 mg PO DAILY [facility] Last Admin: 12/23/22 10:31 Dose: 81 mg Documented By: ARPIT Atorvastatin Calcium (Atorvastatin Calcium 40 Mg Tablet) 40 mg PO BEDTIME [facility] Last Admin: 12/22/22 19:44 Dose: Not Given Documented By: NETO Non-Admin Reason: Patient Refused Benzonatate (Benzonatate 100 Mg Capsule) 100 mg PO TID PRN PRN Reason: Cough Last Admin: 12/23/22 10:30 Dose: 100 mg Documented By: ARPIT Clonidine (Clonidine 0.1 Mg Patch.Tdwk) 0.1 mg TRANSDERMA Th@0900 [facility]; Protocol Last Admin: 12/21/22 13:55 Dose: 0.1 mg Documented By: PER Clonidine HCl (Clonidine Hcl 0.1 Mg Tablet) 0.1 mg PO Q4H PRN; Protocol PRN Reason: for sbp >180 Last Admin: 12/23/22 00:03 Dose: 0.1 mg Documented By: NETO Clopidogrel Bisulfate (Clopidogrel Bisulfate 75 Mg Tablet) 75 mg PO DAILY [facility] Last Admin: 12/23/22 10:33 Dose: 75 mg Documented By: ARPIT Dextrose (Dextrose 50 % 25 Gm/50 Ml Syringe) 25 gm IVPUSH Q15M PRN; Protocol PRN Reason: per Hypoglycemia Standing Ord. Diphenhydramine HCl (Diphenhydramine Hcl 50 Mg/Ml Vial) 50 mg IVPUSH Q6H PRN PRN Reason: Itching Last Admin: 12/23/22 10:24 Dose: 50 mg Documented By: ARPIT Glucose (Glucose Gel 15 Gm Gel..Gram.) 15 gm PO Q15M PRN; Protocol PRN Reason: per Hypoglycemia Standing Ord. Heparin Sodium (Porcine) (Heparin Sodium,Porcine 5,000 Unit/Ml Vial) 5,000 unit SUBCUT Q12H [facility] Last Admin: 12/23/22 05:38 Dose: Not Given Documented By: NETO Non-Admin Reason: Patient Refused Hydromorphone HCl (Hydromorphone Hcl 0.5 Mg/0.5 Ml Syringe) 0.5 mg IVPUSH Q6H PRN; Protocol PRN Reason: Pain, Severe (Pain Scale 7-10) Last Admin: 12/23/22 10:24 Dose: 0.5 mg Documented By: ARPIT Insulin Human Lispro (Insulin Lispro 100 Unit/Ml 3 Ml Vial) 0 unit SUBCUT QIDACHS [facility]; Protocol Last Admin: 12/23/22 10:35 Dose: 2 unit Documented By: ARPIT Losartan Potassium (Losartan Potassium 50 Mg Tablet) 50 mg PO DAILY [facility]; Protocol Last Admin: 12/23/22 10:30 Dose: 50 mg Documented By: ARPIT Melatonin (Melatonin 3 Mg Tablet) 3 mg PO BEDTIME PRN PRN Reason: Insomnia Metoclopramide HCl (Metoclopramide Hcl 10 Mg/2 Ml Vial) 5 mg IVPUSH Q6H PRN PRN Reason: Nausea and Vomiting Last Admin: 12/23/22 10:24 Dose: 5 mg Documented By: ARPIT Omeprazole (Omeprazole 40 Mg Capsule.) 40 mg PO DAILY@0630 [facility] Last Admin: 12/23/22 05:38 Dose: Not Given Documented By: NETO Non-Admin Reason: Patient Refused Sodium Chloride (0.9 % Sodium Chloride Flush 3 Ml Syringe) 3 ml IVFLUSH QSHIFT [facility] Last Admin: 12/23/22 10:32 Dose: 3 ml Documented By: ARPIT Torsemide (Torsemide 20 Mg Tablet) 40 mg PO BIDWM [facility]; Protocol Last Admin: 12/23/22 10:30 Dose: 40 mg Documented By: ARPIT Labs 12/17/22 14:13 12/19/22 08:17 Labs: Laboratory Results - last 24 hr 12/22/22 12/22/22 12/23/22 16:31 20:07 07:23 POC Glucose 126 H 160 H 167 H 12/23/22 10:59 POC Glucose 233 H Assessment and Plan (1) Hypertension, uncontrolled: Status: Acute Plan 32yo F with HTN, chronic HFrEF, DM2 with retinopathy, mood disorder, PAD s/p TMTA, ERSD on HD non-compliant here with body ache, n/v hasn't been to dialysis in more than 1 week Accelerated HTN due to non-compliance with meds/HD BP improved after resuming home meds, bp on softer side yesterday and hydralazine and nifedipine d/c BP trending up today but should improve after dialysis continue torsemide and losartan started on clonidine patch 12/21 follow bp closely prn clonidine ESRD on hemodialysis Sunday Seen by Nephrology underwent hemodialysis, resume MWF schedule Nausea/vomiting due to gastroparesis--symptoms improving tolerated diet, continue IV Reglan prn, continue PPI, CT abdomen and pelvis showed no acute abnormality, normal LFTs and lipase, COVID-19 negative, continue supportive care. declined EGD on last admission Diabetes type 2 hold glipizide on insulin sliding scale and diabetic diet as tolerated. HFrEF no acute exacerbation, chronically elevated BNP, continue torsemide, and hemodialysis Generalize body ache chronic, on oxycodone by mouth as needed, will wean IV Dilaudid for possible discharge at a.m.. DVT prophylaxis: heparin subQ Full code attending - dr. Blanton Need continued inpatient hospitalization for management of uncontrolled HTN Time Spent With Patient Time: Total time managing care of this patient today ____ minutes. Quality Stroke Does the patient have a stroke diagnosis?: No VTE Prior VTE?: No VTE Risk Level:: Medical - moderate - high VTE Device Contraindication: Treatment Not Indicated VTE Drug Contraindication: N/A - Med Ordered
--- NOTE | 2022-12-23 14:02 | PM.DS ---
DS: Providers Provider Date of Service: 12/23/22 Date of admission: 12/17/22 17:00 Primary care physician: Abdon Beard MD Consults: 12/17/22 17:08 Consult to Nephrology Routine Consulting Provider: Jason Sanchez Reason for consultation: ckd missed HD Has provider been notified: No DS: Diagnosis Discharge Diagnosis (1) Hypertension, uncontrolled: Status: Acute DS: Summary Hospital Course Hospital Course: From H&P on day of admission 32-year-old female patient with past medical history of end-stage renal disease on hemodialysis Sunday, coronary artery disease, CHF, diabetes mellitus with gastroparesis, nephropathy and retinopathy and legally blind presented to [facility] due to symptoms of nausea vomiting of few days duration unable to take her medications also complaining of generalized body ache, back pain, complaining of cough and shortness of breath, no fevers, no chills complaining of headache, dizziness, denies sick contacts, wheelchair bound,she skipped hemodialysis on Sunday, last hemodialysis was on Sunday, patient has history of noncompliance with meds and hemodialysis requiring hospitalization for inpatient hemodialysis, on arrival blood pressure 212/101, afebrile, respiratory rate 16 pulse is 109, finger oximetry 97 on room air, chest x-ray unremarkable, abdominal CT showed no nephrolithiasis or hydronephrosis moderate right pleural it effusion, moderate pelvic free fluid generalized anasarca consistent with or fluid overload, enlarged liver, in ED treated with IV labetalol 10 mg, PO hydralazine 75 mg, IV Dilaudid and IV droperidol, patient blood pressure and shortness of breath improved now being admitted to [facility] for hemodialysis and pain management since unable to keep medicines and food down due to persistent nausea vomiting in relation to gastroparesis. Accelerated HTN due to non-compliance with meds/HD Home medications were resume and patient's blood pressure went down to 106/69, therefore hydralazine and nifedipine were discontinued. She was started on clondidine patch. She was continued on home doses of torsemide and losartan. Blood pressure improved. ESRD-Patient underwent dialysis during hospitalization including on the day of discharge. Her outpatient dialysis sessions were changed to Sunday, , Sunday at 11:15, she is aware of this change. Nausea/vomiting due to gastroparesis-symptoms improving and she is tolerating a diet, continue IV Reglan prn, continue PPI, CT abdomen and pelvis showed no acute abnormality, normal LFTs and lipase, COVID-19 negative, continue supportive care. declined EGD on last admission Chronic foot wound. no surrounding erythema, no significant drainage. continue local wound care and she says she follows up in the wound care center. Time Spent with Patient Time attestation: Total time managing care of this patient today ____ minutes. Discharge coordination time: Greater than 30 minutes Quality: Safe Use of Opioids Does Pt have an Active Cancer Diagnosis on the Problem List?: No Quality: Stroke Does the patient have a stroke diagnosis?: No Physical Exam Vital Signs: Vital Signs: Last Vital Signs Temp 97.8 F 12/23/22 11:01 Pulse 99 12/23/22 11:01 Resp 18 12/23/22 11:01 BP 125/93 H 12/23/22 11:01 Pulse Ox 100 12/23/22 11:01 O2 Del Method Nasal Cannula 12/23/22 11:01 O2 Flow Rate 2 12/23/22 11:01 FiO2 98 12/19/22 03:42 Oxygen Flow Rate 2 12/17/22 13:52 BMI result Body Mass Index 27.4 Appearing in no acute distress head is normocephalic atraumatic right eye blindness mouth throat mucous membranes are intact and moist neck is supple no lymphadenopathy, no JVD noted lung sounds are clear to auscultation heart regular rate rhythm, clear S1, S2 positive bowel sounds, abdomen is soft, nontender neuro patient is alert x3, no focal deficits DS: Data Data Completed and Pending Completed studies during hospitalization [Text1]: Procedures Detachment at Right Foot, Partial 1st Ray, Open Approach (03/01/20) Detachment at Right Foot, Partial 2nd Ray, Open Approach (03/01/20) Detachment at Right Foot, Partial 3rd Ray, Open Approach (03/01/20) Detachment at Right Foot, Partial 4th Ray, Open Approach (03/01/20) Detachment at Right Foot, Partial 5th Ray, Open Approach (03/01/20) Drainage of Right Pleural Cavity, Percutaneous Approach (01/14/21) Excision of Left Foot Skin, External Approach (10/22/22) Excision of Stomach, Pylorus, Via Natural or Artificial Opening Endoscopic, Diagnostic (08/27/22) Fluoroscopy of Superior Vena Cava, Guidance (08/14/22) Insertion of Infusion Device into Right Atrium, Percutaneous Approach (08/14/22) Insertion of Infusion Device into Superior Vena Cava, Percutaneous Approach (01/14/21) Insertion of Tunneled Vascular Access Device into Chest Subcutaneous Tissue and Fascia, Percutaneous Approach (08/14/22) Performance of Urinary Filtration, Intermittent, Less than 6 Hours Per Day (11/28/22) Removal of Infusion Device from Great Vessel, External Approach (01/14/21) Transfusion of Nonautologous Red Blood Cells into Peripheral Vein, Percutaneous Approach (04/22/22) Labs on day of discharge: Laboratory Results - last 24 hr 12/22/22 12/22/22 12/23/22 16:31 20:07 07:23 POC Glucose 126 H 160 H 167 H 12/23/22 10:59 POC Glucose 233 H Discharge Plan Discharge Anticipated Discharge Date/Time: 12/23/22 14:01 Patient Disposition: Home, Self-Care Discharge Diagnosis: uncontrolled HTN ESRD on HD Referrals: Abdon Beard MD [Primary Care Provider] - 1 Week Discharge Medications: New clonidine 0.1 mg/24 hr Patch Weekly 0.1 mg transdermal Th@0900 Qty: 4 0RF Protocol: Hold for SBP< HOLD for SBP < : 90 Continued oxycodone 5 mg tablet 5 mg PO Q6H PRN (Reason: severe pain) Qty: 20 0RF metoclopramide HCl 5 mg Tablet 5 mg PO TIDAC 30 Days Qty: 90 0RF atorvastatin 40 mg Tablet 40 mg PO BEDTIME Qty: 90 0RF clopidogrel 75 mg Tablet 75 mg PO DAILY Qty: 90 0RF aspirin 81 mg Tablet,Delayed Release (Dr/Ec) 81 mg PO DAILY Qty: 90 0RF losartan 25 mg Tablet 25 mg PO DAILY Qty: 90 0RF Protocol: Hold for SBP< HOLD for SBP < : 90 omeprazole 40 mg Capsule,Delayed Release(Dr/Ec) 40 mg PO DAILY@0630 Qty: 90 0RF torsemide 20 mg tablet 40 mg PO BID Qty: 180 0RF glipizide 2.5 mg tablet extended release 24hr 2.5 mg PO DAILY Qty: 90 0RF Discontinued hydralazine 25 mg tablet 75 mg PO TID nifedipine 60 mg tablet extended release 24hr 60 mg PO DAILY Qty: 90 0RF Discharge Orders: Discharge Order (Routine); Ordered 12/23/22 Ordered By: Tawny Taylor Diet: Advance to usual diet Activity on Discharge: As tolerated Stand Alone Forms: Patient Portal Discharge page Care Plan Goals: see below Health Concerns: uncontrolled blood pressure ESRD on HD chronic pain Plan of Treatment: Blood pressure medication has been adjusted - stop taking nifedipine and hydralazine. start using clonidine patch as directed your regular dialysis days were changed to Sunday, , Sunday with arrival time of 11:15 as discussed call to schedule follow up appointment with square cutter. follow up with PCP as needed continue taking all other medications as prescribed Assessment: see discharge summary
[2022-12-23 16:18] LABS: Glucose, Whole Blood 186 mg/dL (60-115)
[2022-12-23] MEDS: hydrALAZINE HCl 20 MG/ML VIAL 5 MG IVPUSH (18:36)
--- NOTE | 2022-12-23 19:27 | PC.NURSE ---
pt states she feels symptomatic high and does not want to be discharged home. Symptoms include headache and right eye pain. BP elevated 170/98. Provider notified, okay to hold discharge. Gave prn hydralazine 5mg IVP.
[2022-12-23 20:48] LABS: Glucose, Whole Blood 143 mg/dL (60-115)
[2022-12-24] MEDS: diphenhydrAMINE HCL 50 MG/ML VIAL IVPUSH ×2 (02:32→08:22)
[2022-12-24 02:59] VITALS: BP 152/70; PULSE 82; RESP 16; TEMP 36.4; O2SAT 100
[2022-12-24] MEDS: HYDROmorphone HCl 0.5 MG/0.5 ML SYRINGE IVPUSH (04:17)
[2022-12-24 07:39] VITALS: BP 194/117; PULSE 95; RESP 18; TEMP 36.2; O2SAT 100
[2022-12-24 07:59] LABS: Glucose, Whole Blood 116 mg/dL (60-115)
[2022-12-24] MEDS: Aspirin Enteric Coated 81 MG TABLET.DR PO (08:18)
[2022-12-24] MEDS: Clopidogrel Bisulfate 75 MG TABLET PO (08:18)
[2022-12-24] MEDS: Losartan Potassium 50 MG TABLET PO (08:19)
[2022-12-24] MEDS: hydrALAZINE HCl 20 MG/ML VIAL 5 MG IVPUSH (08:19)
[2022-12-24] MEDS: Torsemide 20 MG TABLET 40 MG PO (08:19)
[2022-12-24] MEDS: cloNIDine HCL 0.1 MG TABLET PO (08:21)
[2022-12-24] MEDS: 0.9 % Sodium Chloride Flush 3 ML SYRINGE IVFLUSH (08:22)
[2022-12-24 10:09] VITALS: BP 151/87; PULSE 95; RESP 20; TEMP 36.3; O2SAT 100
[2022-12-24 10:11] VITALS: BP 151/87; PULSE 88
--- NOTE | 2022-12-24 10:15 | MHC.CM.PN ---
MD order for home, self care. Per EMR, Pt has [employer] and family support at home, as well as OP HD already established in community; per previous notes, ride home to be furnished by family.
[2022-12-24] MEDS: oxyCODONE HCl Immed Release 5 MG TABLET PO (11:29)
[2022-12-24 11:41] LABS: Glucose, Whole Blood 163 mg/dL (60-115)
--- NOTE | 2022-12-25 01:15 | CONS_ITS ---
DATE OF SERVICE: 12/18/2022 REASON FOR CONSULTATION: Consult requested by the medical team to evaluate and help in management of patient with end-stage renal disease, who presented with nausea and vomiting. HISTORY OF PRESENT ILLNESS: Patient is a 32-year-old female, well known to our service with past medical history of ESRD, on hemodialysis, on Sunday, Sunday, Sunday; history of coronary artery disease; CHF; type 2 diabetes mellitus; gastroparesis; diabetic micro and macrovascular complication including legal blindness, who presents to the hospital, complains of nausea and vomiting. She also has had generalized body ache, back pain, cough, shortness of breath. There is no fever or chills. She did have some complaints of dizziness and headache. She apparently had last hemodialysis on Sunday and has been noncompliant with the dialysis treatment and medication. Arrival blood pressure was 212/101. She was afebrile. CT scan showed no nephrolithiasis or hydronephrosis. There was moderate right pleural effusion. She had generalized edema/anasarca and she was admitted to the hospital. She was treated with IV labetalol, p.o. hydralazine, Dilaudid, and patient's blood pressure and shortness of breath improved. REVIEW OF SYSTEMS: As noted above. Other systems reviewed and negative. PAST MEDICAL HISTORY: History of ESRD, on hemodialysis Sunday, Sunday, Sunday; history of noncompliance to medication and dialysis regimen; history of hypertension; gastroparesis; history of neuropathy/retinopathy. She is legally blind, diabetic foot ulcers, history of anemia, headaches/migraine, peripheral arterial disease, history of anemia, osteomyelitis. FAMILY HISTORY: Include coronary artery disease, myocardial infarction, stroke and diabetes in the mother; father has history of coronary artery disease. PERSONAL AND SOCIAL HISTORY: Patient lives with family. Does not smoke. Does not drink alcohol. Does not use drugs. ALLERGIES: INCLUDE ALLERGIES TO MORPHINE, AZITHROMYCIN, GABAPENTIN, TRAMADOL, VANCOMYCIN. MEDICATIONS: As an outpatient, inpatient reviewed. PHYSICAL EXAMINATION: GENERAL: Patient is awake, alert, oriented x3. VITAL SIGNS: Blood pressure was 177/99, pulse 109, afebrile. HEENT: Shows pupils equal, round, reactive bilaterally to light. No jugular venous distention noted. NECK: Supple. CARDIOVASCULAR: S1, S2 without rub. RESPIRATORY: Mild decreased in the bases. ABDOMEN: Soft. Bowel sounds normal. EXTREMITIES: Showed positive edema. There is no peripheral cyanosis or clubbing. LABORATORY DATA: Done recently sodium 137, potassium 4.5, chloride 107, CO2 of 15, BUN 52, creatinine 4.29. WBC is 6.6, hemoglobin 9.2, hematocrit 29.1. IMPRESSION: 1. Middle-aged female with end-stage renal disease, on hemodialysis. 2. Missed dialysis treatment with anasarca. 3. Hypertensive urgency in the setting of missed dialysis treatment and volume overload. 4. Noncompliance to medication and dialysis treatment. 5. Nausea and vomiting in the setting of gastroparesis. RECOMMENDATION: I will arrange for hemodialysis for the patient in the inpatient dialysis unit. She usually gets dialyzed on Sunday, Sunday, Sunday. Last dialysis was last Sunday. We will bring patient back for dialysis again in a.m. She should be on a 2 g sodium diet, low-potassium diet, and a fluid restriction of 1.5 L. Continue with p.o. torsemide to help with increasing free water. Restart all of blood pressure medication. Consider clonidine patch #3 and avoid using clonidine pills in this patient, which could cause rebound hypertension if she stops taking it suddenly. In the meantime, nausea and vomiting/gastroparesis need to be managed by medical team. Thank you for allowing me to participate in medical management of this patient. MD SANTOS Morales/PAULINA / [phone]
--- NOTE | 2022-12-25 07:21 | P.CDIM_ITS ---
PROVIDER RESPONSE TEXT: To clarify, the appropriate diagnosis supported by the clinical indicators: Diabetic ulcer: diabetic ulcer QUERY TEXT: PHYSICIAN'S DOCUMENTATION REQUEST Date of Query: 12/20/2022 09:54 AM EDT Patient Name: Shereen Taylor Admit Date: 12/17/2022 Dear Scarlet Arora, A review of the medical record indicates additional documentation may be needed. Please review below and update the documentation accordingly. Clinical Indicators: Per H&P 12/17/22: transmetatarsal amputation left foot, dressing in place for left foot wound no drainage Based on the above, could you please provide further information regarding the type and severity of u lcer/wound: Diabetic ulcer Please specify the type and severity of the ulcer/wound Venous stasis ulcer Arterial (ischemic) ulcer Pressure (decubitus) ulcer Traumatic wound Non-healing surgical wound Other (explain)Clinically unable to determine (explain)Thank you, Latoya Hooker RN Use of terms such as suspected, likely, concern for, or probable (associated with a specific diagnosi s that is being evaluated, monitored, or treated as if it exists) are acceptable and can be coded in the inpatient se tting, when documented at the time of discharge. Please use your independent medical judgment in providing your response. THIS QUERY IS PART OF THE PERMANENT MEDICAL RECORD
== END 2022-12-24 14:33 | disposition home or self-care (01) | DRG 291 ==
LOC: HO.ED 16:29 → HO.EDOVER 17:23 → HO.IMC 12-18 16:48
PROVIDERS: Physician Assistant Medical; Admitting Provider Hospitalist; Emergency Provider Emergency Medicine; PCP Internal Medicine; Visit Provider Nurse Practitioner Acute Care
DX: I13.2 Hypertensive heart and chronic kidney disease with heart failure and with stage 5 chronic kidney disease, or end stage renal disease (principal); N18.6 End stage renal disease; L97.429 Non-pressure chronic ulcer of left heel and midfoot with unspecified severity; I50.22 Chronic systolic (congestive) heart failure; E11.22 Type 2 diabetes mellitus with diabetic chronic kidney disease; Z99.2 Dependence on renal dialysis; E11.43 Type 2 diabetes mellitus with diabetic autonomic (poly)neuropathy; K31.84 Gastroparesis; I25.10 Atherosclerotic heart disease of native coronary artery without angina pectoris; E11.621 Type 2 diabetes mellitus with foot ulcer; H54.8 Legal blindness, as defined in USA; Z20.822 Contact with and (suspected) exposure to COVID-19; Z91.148 Patient's other noncompliance with medication regimen for other reason; Z91.158 Patient's noncompliance with renal dialysis for other reason; Z79.4 Long term (current) use of insulin; Z79.02 Long term (current) use of antithrombotics/antiplatelets; Z79.82 Long term (current) use of aspirin; Z79.899 Other long term (current) drug therapy
CPT/HCPCS: 36415; 71045; 74176; 80048; 80076; 82947; 83690; 83735; 83880; 84484; 85025; 85610; 87635; 90999; 93005; 99285; J1170; J1200; J1790; J2765

== ENCOUNTER → 2022-12-17 17:00 | Outpatient (BNV) | payer OTHER, SELFPAY | PROVIDERS: Admitting Provider Hospitalist; Emergency Provider Emergency Medicine; PCP Internal Medicine; Visit Provider Hospitalist | DX: I10 Essential (primary) hypertension (principal) | CPT/HCPCS: 99223; 99232; 99233; 99239 ==

== ENCOUNTER 2022-12-29 12:22 | Inpatient (IN) | payer OTHER, SELFPAY ==
--- NOTE | ~2022-12-29 | XR_ITS ---
EXAMINATION: XR FOOT, LEFT CLINICAL INFORMATION: Nonhealing plantar wound COMPARISON: None available. TECHNIQUE: AP, lateral, and oblique views portable x-rays of the left foot. FINDINGS: BONES: There is amputation of left great toe at proximal left first metatarsal shaft. Marked erosion and deformity are seen in distal left fourth metatarsal, with cortical thickening and deformity in the remaining left fourth metatarsal shaft, compatible with healed fracture or osteomyelitis. There is marked dorsal subluxation at the left fourth metatarsophalangeal joint. The left fifth toe is amputated at the left fifth metatarsal head. There are severe erosion and deformity of the left cuneiforms, marked flattening of the left navicular.. There is no focal bone destruction or periosteal reaction seen. JOINTS: Marked rocker bottom deformity of left foot is again visualized with inferior displacement of the tarsometatarsal joints. SOFT TISSUE: Mild soft tissue swelling is again visualized in plantar left midfoot, without definite soft tissue defect. No radiopaque foreign body or abnormal air collection is seen. XR/XR foot LT min 3V IMPRESSION: 1. Unchanged severe neuropathic left foot, first, fourth and fifth digital amputations. 2. Unchanged cortical thickening and deformity of the left fourth metatarsal shaft, compatible with healed fracture or osteomyelitis. 3. Persistent or recurrent mid plantar left foot cellulitis. However, the previously visualized small skin ulcer could not be seen on the current examination. 4. No fracture or signs of acute osteomyelitis are found.
--- NOTE | ~2022-12-29 | CT_ITS ---
EXAMINATION: CT HEAD WITHOUT CONTRAST CLINICAL INFORMATION: Severe headache and dizziness. COMPARISON: Head CT from 09/10/2022. TECHNIQUE: Contiguous axial imaging was performed from the skullbase to vertex without intravenous administration of contrast. This CT examination was performed using dose optimization techniques as appropriate, variously including the following: *Automated exposure control *Adjustment of mA and/or kV according to patient size (this includes techniques or standardized protocols for targeted exams where dose is matched to indication/reason for exam; i.e. extremities or head) *Use of iterative reconstruction technique DLP: 642 mGy-cm. FINDINGS: There is no evidence of acute intracranial hemorrhage or territorial infarction. No abnormal mass effect or midline shift is seen. [place] to white matter differentiation is well preserved. No extra-axial fluid collections are identified. Mild generalized parenchymal volume loss again noted. The ventricles are normal in size. There is no abnormal attenuation within the brain parenchyma. The osseous structures and soft tissues are normal. The mastoid air cells and visualized portions of the paranasal sinuses are well aerated. CT/CT head/brain wo IV con IMPRESSION: No acute intracranial pathology.
--- NOTE | 2022-12-29 13:08 | ED.GENADULT ---
HPI - General Adult General Chief complaint: Headache Stated complaint: Severe Headache Time Seen by Provider: 12/29/22 16:52 History of Present Illness HPI narrative: 32 y/o F patient; PMH ESRD on dialysis, HTN, T2DM, cardiomyopathy, HFrEF, anemia, migraines; presents to the ED complaining of a severe generalized headache associated with photophobia and phonophobia. The patient states she has been taking tylenol without relief. Her last dialysis session was yesterday (12/28/2022). She otherwise denies: recent falls/trauma, nausea/vomiting, abdominal pain, chest pain, SOB, cough/congestion, numbness/weakness/tingling. Does report mild dizziness but states that she has dizziness at baseline. Related Data Previous Rx's Medication Instructions Recorded aspirin 81 mg tablet,delayed 81 mg PO DAILY #90 tabs 08/20/22 release atorvastatin 40 mg tablet 40 mg PO BEDTIME #90 tabs 08/20/22 clopidogrel 75 mg tablet 75 mg PO DAILY #90 tabs 08/20/22 glipizide 2.5 mg tablet, extended 2.5 mg PO DAILY #90 tabs 08/20/22 release 24 hr losartan 25 mg tablet 25 mg PO DAILY #90 tabs 08/20/22 omeprazole 40 mg capsule,delayed 40 mg PO DAILY@0630 #90 caps 08/20/22 release torsemide 20 mg tablet 40 mg (2 x 20 mg) PO BID #180 tabs 08/20/22 oxycodone 5 mg tablet 5 mg PO Q6H PRN severe pain #20 10/07/22 tabs metoclopramide HCl 5 mg tablet 5 mg PO TIDAC 30 days #90 tabs 12/03/22 clonidine 0.1 mg/24 hr weekly 0.1 mg transdermal Th@0900 #4 ea 12/22/22 transdermal patch Allergies Allergy/AdvReac Type Severity Reaction Status Date / Time morphine [MORPHINE] Allergy Intermediate Itching Verified 11/28/22 14:51 azithromycin [From Zithromax] Allergy Hives Verified 11/28/22 14:51 gabapentin Allergy Facial Verified 11/28/22 14:51 Swelling tramadol Allergy Facial Verified 11/28/22 14:51 Swelling vancomycin Allergy Hives Verified 11/28/22 14:51 Review of Systems Review of Systems: Yes all other systems are reviewed and are negative PMFSH Past Medical History Attestation statement: The following information was validated with the patient. Source: old records reviewed Medical History Gastroparesis Non-compliance with renal dialysis Hypertension End-stage renal disease (ESRD) Diabetic foot ulcer associated with type 2 diabetes mellitus Hypertensive emergency Diabetes ESRD needing dialysis Cardiomyopathy HFrEF (heart failure with reduced ejection fraction) Metabolic acidosis delivery delivered Anemia in chronic kidney disease (CKD) CKD (chronic kidney disease) Headache, migraine Abnormal finding on echocardiogram Elevated troponin Chest pain Acute worsening of stage 3 chronic kidney disease Generalized edema Sepsis Cellulitis Pleural effusion CHF (congestive heart failure) (~06/07/22) Tachycardia Atypical chest pain Bone infection PAD (peripheral artery disease) Severe anemia Cellulitis and abscess of foot DM foot ulcer Osteomyelitis test positive test positive Asthma Depression with anxiety Diabetic retinopathy Type 2 diabetes mellitus with hyperglycemia, with long-term current use of insulin Blind right eye Diabetes Back pain Surgical History 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 Family History Family History Mother Coronary artery disease Myocardial infarction Stroke Diabetes mellitus Father Myocardial infarction Social History Social History Household Members: Family Household Members Other:: Sister, [id number], nephew Housing: Apartment Do you presently have visiting nurse or other home services: No Alcohol intake: never Patient Tobacco Use Status: Never used Tobacco Smoked in Last 30 Days: No e-Cigarette/Vaping Use: Never Used Second Hand Smoke Exposure: No Use of substances other than those prescribed or required for medical reasons: No Advance Directives: No Advance Directives Information Provided: No Advance Directives Date on File: 03/08/20 Patient : No service: No Current occupational status: unemployed and disabled Gender identity: Female Physical Exam ED Vital Signs: Vital Signs - 24 hr 12/29/22 13:09 12/29/22 17:01 12/29/22 19:16 Temperature 98.8 F 98.5 F 98.2 F Pulse Rate 107 H 104 H 111 H Respiratory Rate 20 20 20 Blood Pressure 197/114 H 210/125 H 191/104 H Pulse Oximetry 98 99 95 Oxygen Delivery Method Room Air Room Air Room Air 12/29/22 22:08 Temperature Pulse Rate 95 Respiratory Rate 15 Blood Pressure 188/114 H Pulse Oximetry 94 Oxygen Delivery Method Room Air BMI result Body Mass Index 29.0 Patient is tachycardic, hypertensive, afebrile Const Other: Appears uncomfortable with blanket wrapped around head. Orientation/consciousness: oriented to person, oriented to place and oriented to time HENMT Head: Yes normal to inspection and Yes atraumatic Neck Neck: Yes normal visual inspection, Yes trachea midline and Yes supple Chest Chest palpation & inspection: normal inspection of the chest and normal palpation of entire chest wall Resp Effort & Inspection: normal respiratory effort, able to speak in complete sentences and respiratory effort not decreased Auscultation: clear to auscultation bilaterally Cardio Rate: tachycardic Rhythm: regular rhythm GI Inspection: Yes normal to inspection and No distended Palpation (GI): Soft to palpation, not firm, nontender, no guarding and not rigid Neuro General: oriented to person, oriented to place, oriented to time, Normal light touch and pain sensation, no focal motor deficits and CN's II-XI intact bilaterally Course Course Course Narrative: This is a rapid medical exam: Additional HPI, ROS, PE not included below will be deferred to primary provider. Patient is a 32-year-old female with history of ESRD, history of noncompliance with dialysis, HTN, T2DM, cardiomyopathy, HFrEF, anemia, migraines presenting to the ED with complaint of headache not typical of her migraines. Reports pain was severe at onset, also complains of photophobia. Took Tylenol without relief. Had dialysis yesterday. Denies recent falls or other trauma but does report baseline dizziness. Plan: CT head Reevaluation(s) Reevaluation #1: Patient is afebrile, mildly tachycardic, and hypertensive. Reviewed triage CT Head - unremarkable. Will provide Tylenol PO, Reglan IV, and Benadryl IV for pain control. Reevaluation #2: Patient re-evaluated and reports continued discomfort. She is tearful and reporting full body aches. Will add on laboratory studies including respiratory swab. Reevaluation #3: Laboratory studies notable for baseline anemia 8.8. COVID/flu/RSV negative. Patient remains tearful stating she usually is admitted for her migraines and pain, she states she can not go home with high blood pressure and reports she is frustrated because she has been taking her medications at home. Will order Hydralazine 10mg IV and discuss with hospitalist Plan: Admit to hospitalist for migraine, generalized body aches, and HTN Condition: Stable Medications Administered Discontinued Medications Generic Name Dose Route Start Last Admin Trade Name Brandon PRN Reason Stop Dose Admin Acetaminophen 975 mg 12/29/22 17:49 12/29/22 18:56 Acetaminophen 325 Mg Tablet PO 12/29/22 17:50 975 mg ONCE ONE Administration Diphenhydramine HCl 50 mg 12/29/22 17:49 12/29/22 18:56 Diphenhydramine Hcl 50 Mg/Ml Vial IVPUSH 12/29/22 17:50 50 mg ONCE ONE Administration Metoclopramide HCl 10 mg 12/29/22 17:49 12/29/22 18:56 Metoclopramide Hcl 10 Mg/2 Ml Vial IVPUSH 12/29/22 17:50 10 mg ONCE ONE Administration Medical Decision Making Lab Data 12/29/22 20:13 12/29/22 20:13 Labs: Lab Results 12/29/22 Range/Units 20:13 WBC 5.4 (4.8-10.8) X10*3/uL RBC 3.05 L (4.20-5.50) X10*6/uL Hgb 8.8 L (12.0-16.0) g/dl Hct 27.0 L (37.0-47.0) % MCV 88.5 (80.0-98.0) fL MCH 28.9 (27.0-33.0) pg MCHC 32.6 (31.0-35.0) g/dl RDW 16.4 H (11.0-16.0) % Plt Count 276 (160-400) X10*3/uL MPV 11.0 (9.4-12.3) fL Immature Gran % (Auto) 0.6 H (0.0-0.4) % Neut % (Auto) 78.6 H (45-73) % Lymph % (Auto) 9.3 L (20-40) % [place] % (Auto) 7.8 (2-11) % Eos % (Auto) 2.8 (0-4) % Baso % (Auto) 0.9 (0-2) % Lymph # (Auto) 0.5 L (1.2-4.9) X10*3/uL [place] # (Auto) 0.4 (0.1-1.2) X10*3/uL Eos # (Auto) 0.2 (0.0-0.4) X10*3/uL Baso # (Auto) 0.1 (0.0-0.2) X10*3/uL Abs Immat Gran (auto) 0.03 (0.00-0.03) X10*3/uL Absolute Neuts (auto) 4.2 (2.0-8.3) x10*3/uL Absolute Nucleated RBC 0.000 (0.0-0.012) X10*3/uL Nucleated RBC % (auto) 0.0 (0.0-0.2) /100WBC Sodium 134 L (135-145) mmol/L Potassium 3.4 (3.3-5.1) mmol/L Chloride 100 (96-108) mmol/L Carbon Dioxide 25 (22-29) mmol/L Anion Gap 12 (12-20) BUN 38 H (9-16) mg/dL Creatinine 3.03 H (0.5-1.4) mg/dL Estim Creat Clear Calc 28.1 Estimated GFR 18 Random Glucose 245 H (60-115) mg/dL Calcium 8.0 L (8.4-10.2) mg/dL Total Bilirubin 0.7 (0.0-1.0) mg/dL Direct Bilirubin 0.4 (0.0-0.5) mg/dL AST 18 (5-31) U/L ALT 10 (0-31) U/L Alkaline Phosphatase 143 H (39-117) U/L Total Protein 6.9 (6.5-8.0) g/dL Albumin 2.6 L (3.5-5.0) g/dL Lipase 21 (8-78) U/L Influenza Type A (PCR) NEGATIVE (Negative) Influenza Type B (PCR) NEGATIVE (Negative) RSV RNA Qual (PCR) NEGATIVE (Negative) SARS-CoV-2 RNA (RT-PCR) NEGATIVE (Negative) Discharge Plan Discharge Patient Disposition: Admitted As Inpatient Prescriptions: No Action oxycodone 5 mg tablet 5 mg PO Q6H PRN (Reason: severe pain) Qty: 20 0RF metoclopramide HCl 5 mg Tablet 5 mg PO TIDAC 30 Days Qty: 90 0RF atorvastatin 40 mg Tablet 40 mg PO BEDTIME Qty: 90 0RF clopidogrel 75 mg Tablet 75 mg PO DAILY Qty: 90 0RF aspirin 81 mg Tablet,Delayed Release (Dr/Ec) 81 mg PO DAILY Qty: 90 0RF losartan 25 mg Tablet 25 mg PO DAILY Qty: 90 0RF Protocol: Hold for SBP< HOLD for SBP < : 90 omeprazole 40 mg Capsule,Delayed Release(Dr/Ec) 40 mg PO DAILY@0630 Qty: 90 0RF torsemide 20 mg tablet 40 mg PO BID Qty: 180 0RF glipizide 2.5 mg tablet extended release 24hr 2.5 mg PO DAILY Qty: 90 0RF clonidine 0.1 mg/24 hr Patch Weekly 0.1 mg transdermal Th@0900 Qty: 4 0RF Protocol: Hold for SBP< HOLD for SBP < : 90
[2022-12-29 13:09] VITALS: BP 197/114; PULSE 107; RESP 20; TEMP 37.1; O2SAT 98; BMI 29.0
[2022-12-29 17:01] VITALS: BP 210/125; PULSE 104; RESP 20; TEMP 36.9; O2SAT 99
--- NOTE | 2022-12-29 17:10 | PC.NURSE ---
this rn assumed care of pt. pt a&ox4, respirations even and unlabored. pt reports sudden onset of headache at 12am yesterday with no relief with tylenol and oxycodone. pt reports the headache extends throughout the head and down the neck that feels sharp and throbbing. pt reports photophobia. pt reports dizziness that feels like the room is spinning on exertion that relieves with rest. pt denies, chest pain, n/v/d. pt currently has high BP, provider aware. pt nuero in tact. lights dimmed and towel placed over pt eyes for comfort.
[2022-12-29] MEDS: Metoclopramide HCl 10 MG/2 ML VIAL IVPUSH (18:56)
[2022-12-29] MEDS: diphenhydrAMINE HCL 50 MG/ML VIAL IVPUSH (18:56)
[2022-12-29] MEDS: Acetaminophen 325 MG TABLET 975 MG PO (18:56)
[2022-12-29 19:16] VITALS: BP 191/104; PULSE 111; RESP 20; TEMP 36.8; O2SAT 95
--- NOTE | 2022-12-29 19:38 | PC.NURSE ---
care assumed of patient at this time; pt resting in stretcher, towel over her eyes. rpts headache 12/05.
[2022-12-29 20:17] LABS: MANUAL DIFF FLAG NO
[2022-12-29 20:18] LABS: Basophils Absolute Auto 0.1 X10*3/uL (0.0-0.2); Basophils Percent Auto 0.9 % (0-2); Eosinophils Absolute Auto 0.2 X10*3/uL (0.0-0.4); Eosinophils Percent Auto 2.8 % (0-4); Hemoglobin 8.8 g/dl (12.0-16.0); Imm Gran Abs Auto 0.03 X10*3/uL (0.00-0.03); Imm Gran Pct Auto 0.6 % (0.0-0.4); Lymphocytes Absolute Auto 0.5 X10*3/uL (1.2-4.9); Lymphocytes Percent Auto 9.3 % (20-40); Mean Corpuscular HGB Conc 32.6 g/dl (31.0-35.0); Mean Corpuscular Hemoglobin 28.9 pg (27.0-33.0); Mean Corpuscular Volume 88.5 fL (80.0-98.0); Monocytes Absolute Auto 0.4 X10*3/uL (0.1-1.2); Monocytes Percent Auto 7.8 % (2-11); Neutrophils Absolute Auto 4.2 x10*3/uL (2.0-8.3); Neutrophils Percent Auto 78.6 % (45-73); Platelet Count 276 X10*3/uL (160-400); Red Blood Count 3.05 X10*6/uL (4.20-5.50); Red Cell Distribution Width 16.4 % (11.0-16.0); White Blood Count 5.4 X10*3/uL (4.8-10.8)
[2022-12-29 20:53] LABS: Alanine Aminotransferase 10 U/L (0-31); Albumin Level 2.6 g/dL (3.5-5.0); Alkaline Phosphatase 143 U/L (39-117); Anion Gap 12 (12-20); Aspartate Amino Transferase 18 U/L (5-31); Bilirubin Direct 0.4 mg/dL (0.0-0.5); Bilirubin Total 0.7 mg/dL (0.0-1.0); Blood Urea Nitrogen 38 mg/dL (9-16); Carbon Dioxide 25 mmol/L (22-29); Chloride 100 mmol/L (96-108); Creatinine Clr Calc Pharmacy 28.1; Estimated Glomerular Filt Rate 18; Glucose Random 245 mg/dL (60-115); Lipase 21 U/L (8-78); Potassium 3.4 mmol/L (3.3-5.1); Sodium 134 mmol/L (135-145); Total Protein 6.9 g/dL (6.5-8.0)
[2022-12-29 21:21] LABS: Influenza A PCR NEGATIVE (Negative); Influenza B PCR NEGATIVE (Negative); Resp Syncy Virus RNA Qual PCR NEGATIVE (Negative); SARS COV2 PCR INHOUSE NEGATIVE (Negative)
[2022-12-29 22:08] VITALS: BP 188/114; PULSE 95; RESP 15; O2SAT 94
[2022-12-29] MEDS: hydrALAZINE HCl 20 MG/ML VIAL 10 MG IVPUSH (22:19)
--- NOTE | 2022-12-29 22:32 | PHA.MEDREC ---
Pharmacy Consult ? Medication Reconciliation Pharmacy has completed the medication reconciliation. Patient recently discharge 12/24, utilize claim history to complete med rec. [id number] [email or web address]
--- NOTE | 2022-12-29 23:31 | P.HPHOSP_ITS ---
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 and retinopathy and legally, difficult to control HTN, noncompliant with meds or dialysis, frequent hospitalization?for issues related to dialysis, accelerated HTN, nausea, vomiting,?and?pain.?She was discharged from the hospital less than a week ago.?She is presenting Pain everywhere and her SBP is greater than 200 Review of Systems 2 Review of Systems: Gen: no fever, pain everywhere Resp: no sob, no cough CV: no chest, no SOTELO, no leg edema GI: +n/v, no abd pain Neuro: No confusion Yes all other systems are reviewed and are negative [facility] Medical History (Updated 02/08/23 @ 11:43 by Contreras Blanton MD) HFrEF (heart failure with reduced ejection fraction) ESRD on dialysis Migraine Diabetic foot ulcer associated with type 2 diabetes mellitus Chronic pain Gastroparesis Non-compliance with renal dialysis Hypertension Hypertensive emergency Diabetes ESRD needing dialysis Cardiomyopathy Metabolic acidosis delivery delivered Anemia in chronic kidney disease (CKD) CKD (chronic kidney disease) Headache, migraine Abnormal finding on echocardiogram Elevated troponin Chest pain Acute worsening of stage 3 chronic kidney disease Generalized edema Sepsis Cellulitis Pleural effusion CHF (congestive heart failure) (~06/07/22) Tachycardia Atypical chest pain Bone infection PAD (peripheral artery disease) Severe anemia Cellulitis and abscess of foot DM foot ulcer Osteomyelitis test positive test positive Asthma Depression with anxiety Diabetic retinopathy Type 2 diabetes mellitus with hyperglycemia, with long-term current use of insulin Blind right eye Diabetes Back pain Family History Mother Coronary artery disease Myocardial infarction Stroke Diabetes mellitus Father Myocardial infarction Surgical History 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 Social History Household Members: Unknown / Unable to assess Household Members Other:: Sister, [id number], nephew Housing: Unknown / Unable to assess Do you presently have visiting nurse or other home services: No (unknown) Alcohol intake: never Comment: refuses camera Patient Tobacco Use Status: Never used Tobacco e-Cigarette/Vaping Use: Never Used Second Hand Smoke Exposure: No Advance Directives Date on File: 03/08/20 service: No Current occupational status: unemployed and disabled Gender identity: Female Meds Allergies Allergy/AdvReac Type Severity Reaction Status Date / Time morphine [MORPHINE] Allergy Intermediate Itching Verified 01/20/23 18:48 azithromycin [From Zithromax] Allergy Hives Verified 01/20/23 18:48 gabapentin Allergy Facial Verified 01/20/23 18:48 Swelling tramadol Allergy Facial Verified 01/20/23 18:48 Swelling vancomycin Allergy Hives Verified 01/20/23 18:48 Home Medications Medication Instructions Recorded Confirmed Last Taken Type docusate sodium 100 mg capsule 100 mg PO DAILY PRN constipation 01/29/23 01/29/23 Unknown History glipizide 2.5 mg tablet, extended 2.5 mg PO DAILY 01/29/23 01/29/23 Unknown History release 24 hr torsemide 20 mg tablet 40 mg PO BID 01/29/23 01/29/23 Unknown History Physical Exam 2 Vital Signs and Narrative: Vital Signs: Last Vital Signs Temp 98.2 F 12/29/22 19:16 Pulse 95 12/29/22 22:08 Resp 15 12/29/22 22:08 BP 188/114 H 12/29/22 22:08 Pulse Ox 94 12/29/22 22:08 O2 Del Method Room Air 12/29/22 22:08 BMI result Body Mass Index 29.0 Const: Other: Constitutional: Alert, in no distress, overweight. Mental Status: Oriented to person, place and time. Eyes: legally blind Ear, Nose and Throat: Oropharynx clear, mucous membranes moist. Respiratory: Clear to auscultation. No wheezing, rales or rhonchi. Cardiovascular: S1 S2 regular. No murmurs, rubs or gallops. Gastrointestinal: Abdomen soft, non-tender, non-distended. Normal bowel sounds.? Neurologic: Cranial nerves II-XII grossly intact. No focal neurological deficits. Moves all extremities spontaneously.? Skin: No rashes or lesions.? Musculoskeletal: No cyanosis or clubbing. Psychiatric: Normal mood and affect? Results Labs 12/29/22 20:13 12/29/22 20:13 Labs: Laboratory Results - last 24 hr 12/29/22 20:13 MCV 88.5 MCH 28.9 MCHC 32.6 RDW 16.4 H Plt Count 276 MPV 11.0 Immature Gran % (Auto) 0.6 H Neut % (Auto) 78.6 H Lymph % (Auto) 9.3 L [place] % (Auto) 7.8 Eos % (Auto) 2.8 Baso % (Auto) 0.9 Lymph # (Auto) 0.5 L [place] # (Auto) 0.4 Eos # (Auto) 0.2 Baso # (Auto) 0.1 Abs Immat Gran (auto) 0.03 Absolute Neuts (auto) 4.2 Absolute Nucleated RBC 0.000 Nucleated RBC % (auto) 0.0 Anion Gap 12 Estim Creat Clear Calc 28.1 Estimated GFR 18 Random Glucose 245 H Calcium 8.0 L Total Bilirubin 0.7 Direct Bilirubin 0.4 AST 18 ALT 10 Alkaline Phosphatase 143 H Total Protein 6.9 Albumin 2.6 L Lipase 21 Influenza Type A (PCR) NEGATIVE Influenza Type B (PCR) NEGATIVE RSV RNA Qual (PCR) NEGATIVE SARS-CoV-2 RNA (RT-PCR) NEGATIVE Imaging Radiologist's Impressions: Impressions Head CT 12/29/22 14:29 IMPRESSION: No acute intracranial pathology. Assessment and Plan (1) Accelerated essential hypertension: Status: Acute Plan 32yo F with HTN, chronic HFrEF, DM2 with retinopathy, mood disorder, PAD s/p TMTA, ERSD on HD non-compliant here with body ache, n/v hasn't been to dialysis in more than 1 week Accelerated HTN due to non-compliant with meds -restart home meds -IV meds (hydralizine or Labatalol) for SBP > 190 CDKD 5/ESRD--Dialysis [facility], went yesterday Nausea/vomitting due to gastroparesis--Antiemeitc PRN Diabetes--resume home meds, SSI HFrEF--no acute exacerbation, Headache/body ache--chronic, dilaudid prn DVT P: heparin Full code Admission for at least 2 midnights for management of accelerated HTN Quality Stroke Does the patient have a stroke diagnosis?: No VTE Prior VTE?: No VTE Risk Level:: Medical - moderate - high VTE Device Contraindication: Treatment Not Indicated VTE Drug Contraindication: N/A - Med Ordered
[2022-12-30] VITALS (7 sets, daily range): BP systolic 152–210; BP diastolic 90–120; PULSE 95–115; RESP 17–20; TEMP 36–36.7; O2SAT 94–98; BMI 28.3
[2022-12-30] MEDS: HYDROmorphone HCl 1 MG/ML SYRINGE IVPUSH ×5 (02:07→21:51)
[2022-12-30] MEDS: ondansetron HCL 4 MG/2 ML VIAL IVPUSH ×3 (06:42→22:30)
--- NOTE | 2022-12-30 08:51 | P.CONNP_ITS ---
History of Present Illness Reason for Consult Consult date: 12/30/22 Chief Complaint Chief complaint: Accelerated HTN, chronic pain History of Present Illness Narrative: MsShereen Cain is a 32-year-old female with past medical history of nonischemic cardiomyopathy, HFrEF EF 40-50%, diabetes, ESRD, asthma, blindness of right eye, who presented for pain and is admitted with hyeprtensive emergency and dilaysis needs. Review of Systems Review of Systems Gen: no fever, pain everywhere Resp: no sob, no cough CV: no chest, no SOTELO, no leg edema GI: +n/v, no abd pain Neuro: No confusion PMFSH Past Medical History Medical History Gastroparesis Non-compliance with renal dialysis Hypertension End-stage renal disease (ESRD) Diabetic foot ulcer associated with type 2 diabetes mellitus Hypertensive emergency Diabetes ESRD needing dialysis Cardiomyopathy HFrEF (heart failure with reduced ejection fraction) Metabolic acidosis delivery delivered Anemia in chronic kidney disease (CKD) CKD (chronic kidney disease) Headache, migraine Abnormal finding on echocardiogram Elevated troponin Chest pain Acute worsening of stage 3 chronic kidney disease Generalized edema Sepsis Cellulitis Pleural effusion CHF (congestive heart failure) (~06/07/22) Tachycardia Atypical chest pain Bone infection PAD (peripheral artery disease) Severe anemia Cellulitis and abscess of foot DM foot ulcer Osteomyelitis test positive test positive Asthma Depression with anxiety Diabetic retinopathy Type 2 diabetes mellitus with hyperglycemia, with long-term current use of insulin Blind right eye Diabetes Back pain Family History Family History Mother Coronary artery disease Myocardial infarction Stroke Diabetes mellitus Father Myocardial infarction Surgical History Surgical History 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 Social History Social History Household Members: Family Household Members Other:: Sister, [id number], nephew Housing: Apartment Do you presently have visiting nurse or other home services: No Alcohol intake: never Patient Tobacco Use Status: Never used Tobacco Smoked in Last 30 Days: No e-Cigarette/Vaping Use: Never Used Second Hand Smoke Exposure: No Use of substances other than those prescribed or required for medical reasons: No Any prior treatment program specific to substance use: No Have you been hit, kicked, punched, or otherwise hurt by someone within the past year? If so, by whom?: No Do you feel safe in your current relationship?: Yes Is there a partner from a previous relationship who is making you feel unsafe now?: No Are you made to feel afraid or neglected: No Advance Directives: No Advance Directives Information Provided: No Advance Directives Date on File: 03/08/20 Do you have thoughts of harming others: None Do you have a plan to hurt others: No Plan Recently lost weight without trying: No Eating poorly because of decreased appetite: No Nutrition Risks: No Nutritional Risk Patient : No : No Poor oral hygiene: No service: No Current occupational status: unemployed and disabled Gender identity: Female Meds Allergies Allergy/AdvReac Type Severity Reaction Status Date / Time morphine [MORPHINE] Allergy Intermediate Itching Verified 11/28/22 14:51 azithromycin [From Zithromax] Allergy Hives Verified 11/28/22 14:51 gabapentin Allergy Facial Verified 11/28/22 14:51 Swelling tramadol Allergy Facial Verified 11/28/22 14:51 Swelling vancomycin Allergy Hives Verified 11/28/22 14:51 Active Medications: Current Medications Acetaminophen (Acetaminophen 325 Mg Tablet) 650 mg PO Q6H PRN PRN Reason: Pain, Mild (Pain Scale 1-3) Al Hydroxide/Mg Hydroxide (Magnesium Hydrox/Alum Hydrox 30 Ml Oral.Susp) 30 ml PO Q4H PRN PRN Reason: Heartburn/Nausea Aspirin (Aspirin Enteric Coated 81 Mg Tablet.) 81 mg PO DAILY [facility] Atorvastatin Calcium (Atorvastatin Calcium 40 Mg Tablet) 40 mg PO BEDTIME [facility] Clonidine (Clonidine 0.1 Mg Patch.Tdwk) 0.1 mg TRANSDERMA Th@0900 [facility]; Protocol Clopidogrel Bisulfate (Clopidogrel Bisulfate 75 Mg Tablet) 75 mg PO DAILY [facility] Dextrose (Dextrose 50 % 25 Gm/50 Ml Syringe) 25 gm IVPUSH Q15M PRN; Protocol PRN Reason: per Hypoglycemia Standing Ord. Glucose (Glucose Gel 15 Gm Gel..Gram.) 15 gm PO Q15M PRN; Protocol PRN Reason: per Hypoglycemia Standing Ord. Heparin Sodium (Porcine) (Heparin Sodium,Porcine 5,000 Unit/Ml Vial) 5,000 unit SUBCUT Q12H [facility] Last Admin: 12/30/22 02:10 Dose: Not Given Hydralazine HCl (Hydralazine Hcl 20 Mg/Ml Vial) 10 mg IVPUSH Q6H PRN; Protocol PRN Reason: SBP > 190 Hydromorphone HCl (Hydromorphone Hcl 1 Mg/Ml Syringe) 1 mg IVPUSH Q4H PRN; Protocol PRN Reason: Pain, Severe (Pain Scale 7-10) Last Admin: 12/30/22 06:36 Dose: 1 mg Insulin Human Lispro (Insulin Lispro 100 Unit/Ml 3 Ml Vial) 0 unit SUBCUT QIDACHS [facility]; Protocol Losartan Potassium (Losartan Potassium 25 Mg Tablet) 25 mg PO DAILY [facility]; Protocol Magnesium Hydroxide (Milk Of Magnesia 30 Ml Oral.Susp) 30 ml PO DAILY PRN PRN Reason: Constipation Melatonin (Melatonin 3 Mg Tablet) 6 mg PO BEDTIME PRN PRN Reason: Insomnia Metoclopramide HCl (Metoclopramide Hcl 5 Mg Tablet) 5 mg PO TIDAC [facility] Omeprazole (Omeprazole 40 Mg Capsule.Dr) 40 mg PO DAILY@0630 [facility] Ondansetron HCl (Ondansetron Hcl 4 Mg/2 Ml Vial) 4 mg IVPUSH Q8H PRN PRN Reason: Nausea and Vomiting Last Admin: 12/30/22 06:42 Dose: 4 mg Oxycodone HCl (Oxycodone Hcl Immed Release 5 Mg Tablet) 5 mg PO Q6H PRN PRN Reason: severe pain Sodium Chloride (0.9 % Sodium Chloride Flush 3 Ml Syringe) 3 ml IVFLUSH QSHIFT [facility] Last Admin: 12/30/22 02:11 Dose: Not Given Torsemide (Torsemide 20 Mg Tablet) 40 mg PO BID [facility]; Protocol Physical Exam Vital Signs: Last Vital Signs Temp 98.0 F 12/30/22 04:17 Pulse 103 H 12/30/22 04:17 Resp 18 12/30/22 04:17 BP 177/117 H 12/30/22 04:17 Pulse Ox 96 12/30/22 04:17 O2 Del Method Room Air 12/30/22 04:17 BMI result Body Mass Index 28.3 Const Other: Constitutional: Alert, in no distress, overweight. Mental Status: Oriented to person, place and time. Eyes: legally blind Ear, Nose and Throat: Oropharynx clear, mucous membranes moist. Respiratory: Clear to auscultation. No wheezing, rales or rhonchi. Cardiovascular: S1 S2 regular. No murmurs, rubs or gallops. Gastrointestinal: Abdomen soft, non-tender, non-distended. Normal bowel sounds.? Neurologic: Cranial nerves II-XII grossly intact. No focal neurological deficits. Moves all extremities spontaneously.? Skin: No rashes or lesions.? Musculoskeletal: No cyanosis or clubbing. Psychiatric: Normal mood and affect? Results Lab Results 12/29/22 20:13 12/29/22 20:13 Lab results: Chemistry 12/29/22 20:13 Sodium 134 L Potassium 3.4 Carbon Dioxide 25 BUN 38 H Creatinine 3.03 H Calcium 8.0 L Hematology 12/29/22 20:13 WBC 5.4 Hgb 8.8 L Plt Count 276 Assessment and Plan (1) Hypertension, uncontrolled: Status: Acute (2) ESRD on dialysis: Status: Acute Plan Ms. Taylor has a PMHx of ESRD, T2DM, uncontrolled HTN and noncompliance with diaylsis/medications. She is admitted with HTN emergency. 1. ESRD dialysis today and then ongoing on MWF schedule 2. HTN c/w clonidine 0.1 patch weekly increase losartan to 100mg daily c/w torsemide 40mg BID can consider coreg 12.5mg BID too 3. Nephrogenic anemia Venofer 200mg ordered EPO 20,000u ordered Procedures Date of Service Date of Service: 12/30/22
[2022-12-30] MEDS: hydrALAZINE HCl 20 MG/ML VIAL 10 MG IVPUSH (09:34)
[2022-12-30] MEDS: Torsemide 20 MG TABLET 40 MG PO (09:35)
[2022-12-30] MEDS: Losartan Potassium 50 MG TABLET 100 MG PO (09:35)
[2022-12-30] MEDS: Atorvastatin Calcium 40 MG TABLET PO (09:35)
[2022-12-30] MEDS: Clopidogrel Bisulfate 75 MG TABLET PO (09:36)
[2022-12-30] MEDS: 0.9 % Sodium Chloride Flush 3 ML SYRINGE IVFLUSH ×2 (09:36→16:25)
[2022-12-30] MEDS: Aspirin Enteric Coated 81 MG TABLET.DR PO (09:36)
[2022-12-30] MEDS: Metoclopramide HCl 5 MG TABLET PO (09:39)
[2022-12-30 09:43] LABS: Glucose, Whole Blood 115 mg/dL (60-115)
[2022-12-30] MEDS: ondansetron HCL 4 MG/2 ML VIAL 8 MG IVPUSH (10:04)
[2022-12-30 11:22] LABS: Glucose, Whole Blood 119 mg/dL (60-115)
--- NOTE | 2022-12-30 11:37 | MHC.CM.PN ---
IMM 12/30/22, CM MET W/PT WHO REPORTS SHE STILL LIVES W/HER SISTER REJI WHO IS HER LOOM MECHANIC 34 DAY HRS AND 14 NOC HRS, PT VERIFIES SHE IS STILL AT [facility] FOR HD AND REJI TRANSPORTS HER, GOAL FOR DC IS HOME NO SERVICES. PT VERIFIES HCP IS AT [facility] HOWEVER UNSURE OF NAME, PER CM OP VIDEO TAPE EDITOR PCP IS ARMANI CHATMAN AND HCP ON FILE IS CORRECT. DCP: HOME SELF CARE W/SISTER FOR TRANSPORT ONCE MEDICALLY CLEARED
[2022-12-30] MEDS: Iron Sucrose Complex 200 MG in 0.9 % Sodium Chloride 100 ML 440 MG IV (11:41)
--- NOTE | 2022-12-30 13:30 | HO.PM.IMPN ---
Subjective Subjective Date of Service: 12/30/22 Interval History: Somewhat nauseous after dialysis this a.m. relieved by Zofran. Review of Systems Denies chest pain Denies shortness of breath Denies nausea vomiting diarrhea Denies fever chills Physical Exam Vital Signs: Vital Signs: Last Vital Signs Temp 97.8 F 12/30/22 12:00 Pulse 115 H 12/30/22 12:00 Resp 18 12/30/22 12:00 BP 160/100 H 12/30/22 12:00 Pulse Ox 94 12/30/22 12:00 O2 Del Method Room Air 12/30/22 12:00 BMI result Body Mass Index 28.3 Const: Other: Awake alert no acute distress Resp: Other: Clear to auscultation bilaterally no rales rhonchi or wheezes Cardio: Other: No S4; positive S1-S2; no S3 murmurs rubs or gallops GI: Other: Soft nondistended/nontender normoactive bowel sounds Extrem: Other: No edema bilaterally Objective Data Active Medications Acetaminophen (Acetaminophen 325 Mg Tablet) 650 mg PO Q6H PRN PRN Reason: Pain, Mild (Pain Scale 1-3) Al Hydroxide/Mg Hydroxide (Magnesium Hydrox/Alum Hydrox 30 Ml Oral.Susp) 30 ml PO Q4H PRN PRN Reason: Heartburn/Nausea Aspirin (Aspirin Enteric Coated 81 Mg Tablet.) 81 mg PO DAILY [facility] Last Admin: 12/30/22 09:36 Dose: 81 mg Documented By: DAE Atorvastatin Calcium (Atorvastatin Calcium 40 Mg Tablet) 40 mg PO BEDTIME [facility] Last Admin: 12/30/22 09:35 Dose: 40 mg Documented By: DAE Clonidine (Clonidine 0.1 Mg Patch.Tdwk) 0.1 mg TRANSDERMA Th@0900 [facility]; Protocol Clopidogrel Bisulfate (Clopidogrel Bisulfate 75 Mg Tablet) 75 mg PO DAILY [facility] Last Admin: 12/30/22 09:36 Dose: 75 mg Documented By: DAE Dextrose (Dextrose 50 % 25 Gm/50 Ml Syringe) 25 gm IVPUSH Q15M PRN; Protocol PRN Reason: per Hypoglycemia Standing Ord. Glucose (Glucose Gel 15 Gm Gel..Gram.) 15 gm PO Q15M PRN; Protocol PRN Reason: per Hypoglycemia Standing Ord. Heparin Sodium (Porcine) (Heparin Sodium,Porcine 5,000 Unit/Ml Vial) 5,000 unit SUBCUT Q12H [facility] Last Admin: 12/30/22 11:39 Dose: Not Given Documented By: BRUCE Non-Admin Reason: Patient Refused Hydralazine HCl (Hydralazine Hcl 20 Mg/Ml Vial) 10 mg IVPUSH Q6H PRN; Protocol PRN Reason: SBP > 190 Last Admin: 12/30/22 09:34 Dose: 10 mg Documented By: DAE Hydromorphone HCl (Hydromorphone Hcl 1 Mg/Ml Syringe) 1 mg IVPUSH Q4H PRN; Protocol PRN Reason: Pain, Severe (Pain Scale 7-10) Last Admin: 12/30/22 10:40 Dose: 1 mg Documented By: BRUCE Insulin Human Lispro (Insulin Lispro 100 Unit/Ml 3 Ml Vial) 0 unit SUBCUT QIDACHS [facility]; Protocol Last Admin: 12/30/22 11:23 Dose: Not Given Documented By: BRUCE Non-Admin Reason: No Insulin Coverage Losartan Potassium (Losartan Potassium 50 Mg Tablet) 100 mg PO DAILY [facility]; Protocol Last Admin: 12/30/22 09:35 Dose: 100 mg Documented By: DAE Magnesium Hydroxide (Milk Of Magnesia 30 Ml Oral.Susp) 30 ml PO DAILY PRN PRN Reason: Constipation Melatonin (Melatonin 3 Mg Tablet) 6 mg PO BEDTIME PRN PRN Reason: Insomnia Metoclopramide HCl (Metoclopramide Hcl 5 Mg Tablet) 5 mg PO TIDAC [facility] Last Admin: 12/30/22 11:39 Dose: Not Given Documented By: BRUCE Non-Admin Reason: Patient Refused Omeprazole (Omeprazole 40 Mg Capsule.Dr) 40 mg PO DAILY@0630 [facility] Ondansetron HCl (Ondansetron Hcl 4 Mg/2 Ml Vial) 4 mg IVPUSH Q8H PRN PRN Reason: Nausea and Vomiting Last Admin: 12/30/22 06:42 Dose: 4 mg Documented By: BERNABE Oxycodone HCl (Oxycodone Hcl Immed Release 5 Mg Tablet) 5 mg PO Q6H PRN PRN Reason: severe pain Sodium Chloride (0.9 % Sodium Chloride Flush 3 Ml Syringe) 3 ml IVFLUSH QSHIFT [facility] Last Admin: 12/30/22 09:36 Dose: 3 ml Documented By: DAE Torsemide (Torsemide 20 Mg Tablet) 40 mg PO BID [facility]; Protocol Last Admin: 12/30/22 09:35 Dose: 40 mg Documented By: DAE Labs 12/29/22 20:13 12/29/22 20:13 Labs: Laboratory Results - last 24 hr 12/29/22 12/30/22 12/30/22 20:13 09:31 11:18 MCV 88.5 MCH 28.9 MCHC 32.6 RDW 16.4 H Plt Count 276 MPV 11.0 Immature Gran % (Auto) 0.6 H Neut % (Auto) 78.6 H Lymph % (Auto) 9.3 L [place] % (Auto) 7.8 Eos % (Auto) 2.8 Baso % (Auto) 0.9 Lymph # (Auto) 0.5 L [place] # (Auto) 0.4 Eos # (Auto) 0.2 Baso # (Auto) 0.1 Abs Immat Gran (auto) 0.03 Absolute Neuts (auto) 4.2 Absolute Nucleated RBC 0.000 Nucleated RBC % (auto) 0.0 Anion Gap 12 Estim Creat Clear Calc 28.1 Estimated GFR 18 POC Glucose 115 119 H Random Glucose 245 H Calcium 8.0 L Total Bilirubin 0.7 Direct Bilirubin 0.4 AST 18 ALT 10 Alkaline Phosphatase 143 H Total Protein 6.9 Albumin 2.6 L Lipase 21 Influenza Type A (PCR) NEGATIVE Influenza Type B (PCR) NEGATIVE RSV RNA Qual (PCR) NEGATIVE SARS-CoV-2 RNA (RT-PCR) NEGATIVE Assessment and Plan (1) Hypertension, uncontrolled: Status: Acute (2) ESRD on dialysis: Status: Acute (3) Gastroparesis: Status: Acute Plan Ms. Taylor has a PMHx of ESRD, T2DM, uncontrolled HTN and noncompliance with diaylsis/medications. She is admitted with HTN emergency. 1. Accelerated hypertension -appreciate Nephrology input -will restart meds as ordered -adjust as indicated clinically 2. ESRD on HD -HD this a.m. without issue -follow renals/divalents 3. Gastroparesis -continue Reglan and AC -Zofran p.r.n. for breakthrough 4.DM II -acceptable control on current therapies -lispro correctional scale -adjust as indicated Full code Requires ongoing hospitalization for urgent hemodialysis to correct abnormalities and to control accelerated hypertension Quality Stroke Does the patient have a stroke diagnosis?: No VTE Prior VTE?: No VTE Risk Level:: Medical - moderate - high VTE Device Contraindication: Treatment Not Indicated VTE Drug Contraindication: N/A - Med Ordered
[2022-12-30] MEDS: diphenhydrAMINE HCL 50 MG/ML VIAL 25 MG IVPUSH ×2 (13:45→22:32)
[2022-12-30 16:03] LABS: Glucose, Whole Blood 129 mg/dL (60-115)
--- NOTE | 2022-12-30 18:56 | HO.SKINPHOTO ---
Location: Right foot
[2022-12-30 20:13] LABS: Glucose, Whole Blood 92 mg/dL (60-115)
[2022-12-30 20:13] LABS: Glucose, Whole Blood 114 mg/dL (60-115)
[2022-12-31] VITALS: BP 216/122; PULSE 102; RESP 20; TEMP 36.2; O2SAT 98
[2022-12-31] MEDS: hydrALAZINE HCl 20 MG/ML VIAL 10 MG IVPUSH (00:23)
[2022-12-31] MEDS: HYDROmorphone HCl 1 MG/ML SYRINGE IVPUSH ×5 (01:51→18:15)
[2022-12-31] MEDS: ondansetron HCL 4 MG/2 ML VIAL IVPUSH ×2 (01:51→08:24)
[2022-12-31 03:36] VITALS: BP 175/103; PULSE 116; RESP 20; TEMP 36.3; O2SAT 97
[2022-12-31 07:02] VITALS: BP 152/92; PULSE 105; RESP 16; TEMP 36.9; O2SAT 96
[2022-12-31 08:21] LABS: Glucose, Whole Blood 101 mg/dL (60-115)
--- NOTE | 2022-12-31 08:31 | P.PNNP_ITS ---
Subjective Subjective Date of Service: 12/31/22 Interval history: BP better controlled some tachycardia and mild HTN left. Coreg added Physical Exam 2 Vital Signs: Vital Signs: Last Vital Signs Temp 98.5 F 12/31/22 07:02 Pulse 105 H 12/31/22 07:02 Resp 16 12/31/22 07:02 BP 152/92 H 12/31/22 07:02 Pulse Ox 96 12/31/22 07:02 O2 Del Method Room Air 12/31/22 03:36 BMI result Body Mass Index 28.3 Const: Other: Constitutional: Alert, in no distress, overweight. Mental Status: Oriented to person, place and time. Eyes: legally blind Ear, Nose and Throat: Oropharynx clear, mucous membranes moist. Respiratory: Clear to auscultation. No wheezing, rales or rhonchi. Cardiovascular: S1 S2 regular. No murmurs, rubs or gallops. Gastrointestinal: Abdomen soft, non-tender, non-distended. Normal bowel sounds.? Neurologic: Cranial nerves II-XII grossly intact. No focal neurological deficits. Moves all extremities spontaneously.? Skin: No rashes or lesions.? Musculoskeletal: No cyanosis or clubbing. Psychiatric: Normal mood and affect? Objective Data Labs 12/29/22 20:13 12/29/22 20:13 Labs: Laboratory Results - last 24 hr 12/30/22 12/30/22 12/30/22 09:31 11:18 15:59 POC Glucose 115 119 H 129 H 12/30/22 12/30/22 12/31/22 20:06 20:08 08:18 POC Glucose 114 92 101 Procedures Date of Service Date of Service: 12/31/22 Assessment & Plan Assessment and plan (1) Hypertension, uncontrolled: Status: Acute (2) ESRD on dialysis: Status: Acute Plan Ms. Taylor has a PMHx of ESRD, T2DM, uncontrolled HTN and noncompliance with diaylsis/medications. She is admitted with HTN emergency. 1. ESRD Continue MWF dialysis ESRD diet, salt and potassium restricted 2. 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 Progress Note: Quality Stroke Does the patient have a stroke diagnosis?: No
[2022-12-31] MEDS: diphenhydrAMINE HCL 50 MG/ML VIAL 25 MG IVPUSH ×2 (10:00→16:44)
[2022-12-31] MEDS: 0.9 % Sodium Chloride Flush 3 ML SYRINGE IVFLUSH ×2 (10:21→15:29)
[2022-12-31 11:00] VITALS: BP 144/83; PULSE 100; RESP 16; TEMP 36.6; O2SAT 97
[2022-12-31 11:11] LABS: Glucose, Whole Blood 98 mg/dL (60-115)
--- NOTE | 2022-12-31 11:13 | P.PNIM_ITS ---
Subjective Subjective Date of Service: 12/31/22 Interval History: Persistent nausea and vomiting despite Zofran and Reglan. Review of Systems Denies chest pain Denies shortness of breath Admits nausea vomiting Denies diarrhea Denies fever chills Physical Exam 2 Vital Signs: Vital Signs: Last Vital Signs Temp 98 F 12/31/22 11:00 Pulse 100 12/31/22 11:00 Resp 16 12/31/22 11:00 BP 144/83 H 12/31/22 11:00 Pulse Ox 97 12/31/22 11:00 O2 Del Method Room Air 12/31/22 11:00 BMI result Body Mass Index 28.3 Const: Other: Awake alert no acute distress Resp: Other: Clear to auscultation bilaterally no rales rhonchi or wheezes Cardio: Other: No S4; positive S1-S2; no S3 murmurs rubs or gallops GI: Other: Soft nondistended/nontender normoactive bowel sounds Extrem: Other: No edema bilaterally Objective Data Active Medications Acetaminophen (Acetaminophen 325 Mg Tablet) 650 mg PO Q6H PRN PRN Reason: Pain, Mild (Pain Scale 1-3) Al Hydroxide/Mg Hydroxide (Magnesium Hydrox/Alum Hydrox 30 Ml Oral.Susp) 30 ml PO Q4H PRN PRN Reason: Heartburn/Nausea Aspirin (Aspirin Enteric Coated 81 Mg Tablet.) 81 mg PO DAILY [facility] Last Admin: 12/30/22 09:36 Dose: 81 mg Documented By: DAE Atorvastatin Calcium (Atorvastatin Calcium 40 Mg Tablet) 40 mg PO BEDTIME [facility] Last Admin: 12/30/22 22:35 Dose: Not Given Documented By: BERNABE Non-Admin Reason: pt refused , pt has n/v Carvedilol (Carvedilol 6.25 Mg Tablet) 6.25 mg PO BID [facility]; Protocol Clonidine (Clonidine 0.1 Mg Patch.Tdwk) 0.1 mg TRANSDERMA Th@0900 [facility]; Protocol Clopidogrel Bisulfate (Clopidogrel Bisulfate 75 Mg Tablet) 75 mg PO DAILY [facility] Last Admin: 12/30/22 09:36 Dose: 75 mg Documented By: DAE Dextrose (Dextrose 50 % 25 Gm/50 Ml Syringe) 25 gm IVPUSH Q15M PRN; Protocol PRN Reason: per Hypoglycemia Standing Ord. Diphenhydramine HCl (Diphenhydramine Hcl 50 Mg/Ml Vial) 25 mg IVPUSH Q6H PRN PRN Reason: Itching Last Admin: 12/31/22 10:00 Dose: 25 mg Documented By: DAE Glucose (Glucose Gel 15 Gm Gel..Gram.) 15 gm PO Q15M PRN; Protocol PRN Reason: per Hypoglycemia Standing Ord. Heparin Sodium (Porcine) (Heparin Sodium,Porcine 5,000 Unit/Ml Vial) 5,000 unit SUBCUT Q12H [facility] Last Admin: 12/31/22 01:47 EDT Dose: Not Given Documented By: BERNABE Non-Admin Reason: Patient Refused Hydralazine HCl (Hydralazine Hcl 20 Mg/Ml Vial) 10 mg IVPUSH Q6H PRN; Protocol PRN Reason: SBP > 190 Last Admin: 12/31/22 00:23 Dose: 10 mg Documented By: BERNABE Hydromorphone HCl (Hydromorphone Hcl 1 Mg/Ml Syringe) 1 mg IVPUSH Q4H PRN; Protocol PRN Reason: Pain, Severe (Pain Scale 7-10) Last Admin: 12/31/22 10:00 Dose: 1 mg Documented By: DAE Insulin Human Lispro (Insulin Lispro 100 Unit/Ml 3 Ml Vial) 0 unit SUBCUT QIDACHS [facility]; Protocol Last Admin: 12/31/22 08:20 Dose: Not Given Documented By: RUTH Non-Admin Reason: No Insulin Coverage Losartan Potassium (Losartan Potassium 50 Mg Tablet) 100 mg PO DAILY [facility]; Protocol Last Admin: 12/30/22 09:35 Dose: 100 mg Documented By: DAE Magnesium Hydroxide (Milk Of Magnesia 30 Ml Oral.Susp) 30 ml PO DAILY PRN PRN Reason: Constipation Melatonin (Melatonin 3 Mg Tablet) 6 mg PO BEDTIME PRN PRN Reason: Insomnia Metoclopramide HCl (Metoclopramide Hcl 5 Mg Tablet) 5 mg PO TIDAC [facility] Last Admin: 12/31/22 08:20 Dose: Not Given Documented By: RUTH Non-Admin Reason: Patient Refused Omeprazole (Omeprazole 40 Mg Capsule.Dr) 40 mg PO DAILY@0630 [facility] Last Admin: 12/31/22 06:35 Dose: Not Given Documented By: BERNABE Non-Admin Reason: Patient Refused Ondansetron HCl (Ondansetron Hcl 4 Mg/2 Ml Vial) 4 mg IVPUSH Q8H PRN PRN Reason: Nausea and Vomiting Last Admin: 12/31/22 08:24 Dose: 4 mg Documented By: RUTH Oxycodone HCl (Oxycodone Hcl Immed Release 5 Mg Tablet) 5 mg PO Q6H PRN PRN Reason: severe pain Prochlorperazine Edisylate (Prochlorperazine Edisylate 10 Mg/2 Ml Vial) 10 mg IVPUSH Q6H PRN PRN Reason: Nausea and Vomiting Sodium Chloride (0.9 % Sodium Chloride Flush 3 Ml Syringe) 3 ml IVFLUSH QSHIFT [facility] Last Admin: 12/31/22 10:21 Dose: 3 ml Documented By: RUTH Torsemide (Torsemide 20 Mg Tablet) 40 mg PO BID [facility]; Protocol Last Admin: 12/30/22 22:36 Dose: Not Given Documented By: BERNABE Non-Admin Reason: pt refused, pt has n/v Labs 12/29/22 20:13 12/29/22 20:13 Labs: Laboratory Results - last 24 hr 12/30/22 12/30/22 12/30/22 15:59 20:06 20:08 POC Glucose 129 H 114 92 12/31/22 12/31/22 08:18 11:07 POC Glucose 101 98 Assessment and Plan (1) Hypertension, uncontrolled: Status: Acute (2) ESRD on dialysis: Status: Acute (3) Gastroparesis: Status: Acute Plan Ms. Taylro has a PMHx of ESRD, T2DM, uncontrolled HTN and noncompliance with diaylsis/medications. She is admitted with HTN emergency. 1. Accelerated hypertension -continue losartan/clonidine/hydralazine as ordered -at Coreg 6.25 mg b.i.d.. .. -adjust as indicated clinically 2. ESRD on HD -HD this a.m. without issue -follow renals/divalents 3. Gastroparesis -continue Reglan/AC/Zofran ... All ineffective today -will trial dose Compazine 4.DM II -acceptable control on current therapies -lispro correctional scale -adjust as indicated Full code Requires ongoing hospitalization for urgent hemodialysis to correct abnormalities and to control accelerated hypertension Quality Stroke Does the patient have a stroke diagnosis?: No VTE Prior VTE?: No VTE Risk Level:: Medical - moderate - high VTE Device Contraindication: Treatment Not Indicated VTE Drug Contraindication: N/A - Med Ordered
[2022-12-31 15:40] VITALS: BP 126/97; PULSE 114; RESP 20; TEMP 37.1; O2SAT 97
[2022-12-31 16:29] LABS: Glucose, Whole Blood 99 mg/dL (60-115)
--- NOTE | 2022-12-31 18:18 | PC.NURSE ---
nursing observation: every time RN enters pt's room , pt is resting quietly and as soon as RN introduced herself to the pt , she starts coughing forcefully to the point she starts vomiting .
[2022-12-31 18:57] VITALS: BP 181/99; PULSE 106; RESP 16; TEMP 36.7; O2SAT 96
[2023-01-01] VITALS (9 sets, daily range): BP systolic 160–202; BP diastolic 82–114; PULSE 90–113; RESP 18–20; TEMP 35.9–36.7; O2SAT 96–99
[2023-01-01] MEDS: HYDROmorphone HCl 1 MG/ML SYRINGE IVPUSH ×5 (00:35→22:34)
[2023-01-01] MEDS: 0.9 % Sodium Chloride Flush 3 ML SYRINGE IVFLUSH ×2 (00:35→09:09)
[2023-01-01] MEDS: diphenhydrAMINE HCL 50 MG/ML VIAL 25 MG IVPUSH ×3 (00:35→22:34)
[2023-01-01] MEDS: hydrALAZINE HCl 20 MG/ML VIAL 10 MG IVPUSH ×2 (00:44→23:14)
[2023-01-01] MEDS: ondansetron HCL 4 MG/2 ML VIAL IVPUSH ×2 (04:18→10:58)
[2023-01-01 07:38] LABS: Glucose, Whole Blood 92 mg/dL (60-115)
--- NOTE | 2023-01-01 10:25 | MHC.CM.PN ---
Per ROUNDS discussion, Patient is not yet medically cleared for dc (Patient required IV Hydralazine & IV Dilaudid today); home/resume services is the goal and CM will continue to follow.
--- NOTE | 2023-01-01 11:16 | HO.WOUND ---
Wound Consult: Initial 32yr old female admitted to [facility] on?12/29/22 23:37 - See progress notes and H&P for detailed history. Pt reports she does not follow with a specific physician for the plantar wound at this time - she reports she has been to wound clinic in the past but not recently. She reports she treats with Alginate daily -she reports she performs this task herself. She is unaware of where she get her supply and reports it is primariliy from when she is admitted to the hospital. She is aware of the skin tear at the 5 o'clock area but does not recall how that occurred other than she noted it when she performed her dressing change. Unclear of her visual status and her ability to observe the wound and periwound. The skin tear can heal with moist wound healing along with the Durafiber application - there is to great a concern to add moisture such as wound gel and or xeroform to the periwound due to the chronic nonhealing plantar wound and her poorl controlled diabetes and foot care. This was explained to pt and she reports understanding. Pt reports she has been offered an off loading boot in the past but refused and reports she will not wear one. Right Plantar Foot Etiology: Diabetic Foot wound Measurements: 3cm x 2cm x 0.4cm Wound Bed: red pink moist tissue with scant slough noted Drainage / Odor: mild odor noted creamy yellow drainage Edges: ? considerably callused Pao wound: ? Skin tear noted at 4 o'clock - partial thickness tissue loss - pt reports epidermal layer came off when changing her dressing No Induration, No Fluctuance, No Erythema, No Warmth - no S/S of active infection Pain: Denies reports neuropathy Goals of Treatment: ? Consult surgery to consider debridement / pareing down of callused edges - Durafiber AG for moisture management and antimicrobial properties Pre cleansing Post cleansing Recommendations: 1. Turn and Reposition every 2 hours and as needed for patient comfort consider use of wedges available in the storeroom. 2. Off Load all bony prominences with use of pillows, wedges and heel boots. 3. Monitor for incontinence and moisture control. 4. Provide adequate and supplemental nutrition. 5. Order or Continue low air loss mattress. 6. Maintain blood glucose levels per Providers orders. 7. Left Plantar foot - Off Load Pressure - Cleanse / Umbarger with Betadine. Pack wound bed with Durafiber AG, cover with dry gauze and ABD pad, gauze wrap. Change Daily while inpatient.
[2023-01-01 11:42] LABS: Glucose, Whole Blood 87 mg/dL (60-115)
--- NOTE | 2023-01-01 12:50 | P.PNNP_ITS ---
Subjective Subjective Date of Service: 01/01/23 Interval history: Seen and examined, events noted Physical Exam 2 Vital Signs: Vital Signs: Last Vital Signs Temp 97.8 F 01/01/23 11:56 Pulse 90 01/01/23 11:56 Resp 19 01/01/23 07:47 BP 179/90 H 01/01/23 11:56 Pulse Ox 99 01/01/23 11:56 O2 Del Method Room Air 01/01/23 11:56 BMI result Body Mass Index 28.3 Const: Other: Constitutional: Alert, in no distress, overweight. Mental Status: Oriented to person, place and time. Eyes: legally blind Ear, Nose and Throat: Oropharynx clear, mucous membranes moist. Respiratory: Clear to auscultation. No wheezing, rales or rhonchi. Cardiovascular: S1 S2 regular. No murmurs, rubs or gallops. Gastrointestinal: Abdomen soft, non-tender, non-distended. Normal bowel sounds.? Neurologic: Cranial nerves II-XII grossly intact. No focal neurological deficits. Moves all extremities spontaneously.? Skin: No rashes or lesions.? Musculoskeletal: No cyanosis or clubbing. Psychiatric: Normal mood and affect? Objective Data Labs 12/29/22 20:13 12/29/22 20:13 Labs: Laboratory Results - last 24 hr 12/31/22 01/01/23 01/01/23 16:21 07:35 11:35 POC Glucose 99 92 87 Procedures Date of Service Date of Service: 01/01/23 Assessment & Plan Assessment and plan (1) Hypertension, uncontrolled: Status: Acute (2) ESRD on dialysis: Status: Inactive Plan Ms. Taylor has a PMHx of ESRD, T2DM, uncontrolled HTN and noncompliance with diaylsis/medications. She is admitted with HTN emergency. 1. ESRD Continue TTS dialysis ESRD diet, salt and potassium restricted 2. 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 Progress Note: Quality Stroke Does the patient have a stroke diagnosis?: No
--- NOTE | 2023-01-01 13:40 | MHC.CLN ---
NUTRITION PER NEPHROLOGY NOTE, DIET SHOULD BE SALT AND POTASSIUM RESTRICTED. DIET CHANGED TO: DIABETIC 1800 KCALS, 2 GRAM SODIUM, LOW POTASSIUM.
--- NOTE | 2023-01-01 13:41 | HO.PM.IMPN ---
Subjective Subjective Date of Service: 01/01/23 Interval History: Complaining of persistent nausea, headache, generalized body ache, refusing medications, blood pressure remains elevated, noncompliance with hemodialysis. Review of Systems All other system reviewed and negative. Physical Exam Vital Signs: Vital Signs: Last Vital Signs Temp 97.8 F 01/01/23 11:56 Pulse 90 01/01/23 11:56 Resp 19 01/01/23 07:47 BP 179/90 H 01/01/23 11:56 Pulse Ox 99 01/01/23 11:56 O2 Del Method Room Air 01/01/23 11:56 BMI result Body Mass Index 28.3 Const: Other: Gen: Awake alert x3, in mild distress due to nausea and pain Legally blind Hemodialysis catheter right chest wall Neck: supple Lungs: clear to auscultation bilaterally Heart: regular rate and rhythm, no murmurs Abd: soft, non tender, no rebound, tenderness bilateral flank Ext: No leg edema, trans metatarsal amputation left foot, multiple toes amputation right foot, dressing in place for left foot wound ,no drainage. Skin: warm/well-perfused Neuro: alert and oriented x3, no focal findings Psych: appropriate affect Objective Data Active Medications Acetaminophen (Acetaminophen 325 Mg Tablet) 650 mg PO Q6H PRN PRN Reason: Pain, Mild (Pain Scale 1-3) Al Hydroxide/Mg Hydroxide (Magnesium Hydrox/Alum Hydrox 30 Ml Oral.Susp) 30 ml PO Q4H PRN PRN Reason: Heartburn/Nausea Aspirin (Aspirin Enteric Coated 81 Mg Tablet.) 81 mg PO DAILY [facility] Last Admin: 01/01/23 09:15 Dose: Not Given Documented By: MALLIKA Non-Admin Reason: Nausea Atorvastatin Calcium (Atorvastatin Calcium 40 Mg Tablet) 40 mg PO BEDTIME [facility] Last Admin: 12/31/22 21:26 Dose: Not Given Documented By: PARAG Non-Admin Reason: Patient Refused Carvedilol (Carvedilol 6.25 Mg Tablet) 6.25 mg PO BID [facility]; Protocol Last Admin: 01/01/23 09:15 Dose: Not Given Documented By: MALLIKA Non-Admin Reason: Nausea Clonidine (Clonidine 0.1 Mg Patch.Tdwk) 0.1 mg TRANSDERMA Th@0900 [facility]; Protocol Clopidogrel Bisulfate (Clopidogrel Bisulfate 75 Mg Tablet) 75 mg PO DAILY [facility] Last Admin: 01/01/23 09:15 Dose: Not Given Documented By: MALLIKA Non-Admin Reason: Nausea Dextrose (Dextrose 50 % 25 Gm/50 Ml Syringe) 25 gm IVPUSH Q15M PRN; Protocol PRN Reason: per Hypoglycemia Standing Ord. Diphenhydramine HCl (Diphenhydramine Hcl 50 Mg/Ml Vial) 25 mg IVPUSH Q6H PRN PRN Reason: Itching Last Admin: 01/01/23 10:58 Dose: 25 mg Documented By: MALLIKA Glucose (Glucose Gel 15 Gm Gel..Gram.) 15 gm PO Q15M PRN; Protocol PRN Reason: per Hypoglycemia Standing Ord. Heparin Sodium (Porcine) (Heparin Sodium,Porcine 5,000 Unit/Ml Vial) 5,000 unit SUBCUT Q12H [facility] Last Admin: 01/01/23 00:46 Dose: Not Given Documented By: JONATHAN Non-Admin Reason: Patient Refused Hydralazine HCl (Hydralazine Hcl 20 Mg/Ml Vial) 10 mg IVPUSH Q6H PRN; Protocol PRN Reason: SBP > 190 Last Admin: 01/01/23 00:44 Dose: 10 mg Documented By: JONATHAN Hydromorphone HCl (Hydromorphone Hcl 1 Mg/Ml Syringe) 1 mg IVPUSH Q4H PRN; Protocol PRN Reason: Pain, Severe (Pain Scale 7-10) Last Admin: 01/01/23 09:09 Dose: 1 mg Documented By: MALLIKA Insulin Human Lispro (Insulin Lispro 100 Unit/Ml 3 Ml Vial) 0 unit SUBCUT QIDACHS [facility]; Protocol Last Admin: 01/01/23 13:26 Dose: Not Given Documented By: MALLIKA Non-Admin Reason: Nausea Losartan Potassium (Losartan Potassium 50 Mg Tablet) 100 mg PO DAILY [facility]; Protocol Last Admin: 01/01/23 09:16 Dose: Not Given Documented By: MALLIKA Non-Admin Reason: Nausea Magnesium Hydroxide (Milk Of Magnesia 30 Ml Oral.Susp) 30 ml PO DAILY PRN PRN Reason: Constipation Melatonin (Melatonin 3 Mg Tablet) 6 mg PO BEDTIME PRN PRN Reason: Insomnia Metoclopramide HCl (Metoclopramide Hcl 5 Mg Tablet) 5 mg PO TIDAC [facility] Last Admin: 01/01/23 09:15 Dose: Not Given Documented By: MALLIKA Non-Admin Reason: Nausea Omeprazole (Omeprazole 40 Mg Capsule.) 40 mg PO DAILY@0630 [facility] Last Admin: 01/01/23 05:53 Dose: Not Given Documented By: JONATHAN Non-Admin Reason: Patient Refused Ondansetron HCl (Ondansetron Hcl 4 Mg/2 Ml Vial) 4 mg IVPUSH Q8H PRN PRN Reason: Nausea and Vomiting Last Admin: 01/01/23 10:58 Dose: 4 mg Documented By: MALLIKA Comments: given early per darian Fernandez Oxycodone HCl (Oxycodone Hcl Immed Release 5 Mg Tablet) 5 mg PO Q6H PRN PRN Reason: severe pain Prochlorperazine Edisylate (Prochlorperazine Edisylate 10 Mg/2 Ml Vial) 10 mg IVPUSH Q6H PRN PRN Reason: Nausea and Vomiting Sodium Chloride (0.9 % Sodium Chloride Flush 3 Ml Syringe) 3 ml IVFLUSH QSHIFT [facility] Last Admin: 01/01/23 09:09 Dose: 3 ml Documented By: MALLIKA Torsemide (Torsemide 20 Mg Tablet) 40 mg PO BID [facility]; Protocol Last Admin: 01/01/23 09:16 Dose: Not Given Documented By: MALLIKA Non-Admin Reason: Nausea Labs 12/29/22 20:13 12/29/22 20:13 Labs: Laboratory Results - last 24 hr 12/31/22 01/01/23 01/01/23 16:21 07:35 11:35 POC Glucose 99 92 87 Assessment and Plan (1) Hypertension, uncontrolled: Status: Acute (2) ESRD on dialysis: Status: Inactive (3) Gastroparesis: Status: Inactive Plan Ms. Taylor has a PMHx of ESRD, T2DM, uncontrolled HTN and noncompliance with diaylsis/medications. She is admitted with HTN emergency. 1. Accelerated hypertension -persistent elevated blood pressure with nausea, refusing medications -continue losartan/ Coreg 6.25 mg b.i.d/torsemide bid , will increase dose of clonidine to 0.3 mg qweekly . -BP remains elevated will place back on nifedipine XL, follow BP closely . 2. ESRD on HD -continue Sunday hemodialysis , discuss the need of compliance with hemodialysis -follow renals/divalents, being followed by Nephrology 3. Gastroparesis -continue Reglan/iv Compazine 4.DM II -good blood sugar control , continue lispro correctional scale -adjust as indicated 5.HFrEF--no acute exacerbation, chronically elevated BNP, continue torsemide, and hemodialysis 6. Generalize body ache--chronic, on oxycodone by mouth as needed, will wean IV Dilaudid for possible discharge at a.m.. 7 DVT prophylaxis: heparin subQ Full code Requires ongoing hospitalization for persistent nausea vomiting unable to take by mouth medications and adjustment of blood pressure medications. Quality Stroke Does the patient have a stroke diagnosis?: No VTE Prior VTE?: No VTE Risk Level:: Medical - moderate - high VTE Device Contraindication: Treatment Not Indicated VTE Drug Contraindication: N/A - Med Ordered
[2023-01-01 16:59] LABS: Glucose, Whole Blood 119 mg/dL (60-115)
[2023-01-01 22:52] LABS: Glucose, Whole Blood 94 mg/dL (60-115)
[2023-01-02] VITALS: BP 166/96; PULSE 106; RESP 20; TEMP 36.6; O2SAT 98
[2023-01-02] MEDS: HYDROmorphone HCl 1 MG/ML SYRINGE IVPUSH ×3 (03:08→12:06)
[2023-01-02 03:24] VITALS: BP 165/100; PULSE 106; RESP 18; TEMP 36.6; O2SAT 96
[2023-01-02] MEDS: diphenhydrAMINE HCL 50 MG/ML VIAL 25 MG IVPUSH ×2 (10:51→20:52)
[2023-01-02 11:48] VITALS: BP 170/90; PULSE 103; RESP 19; TEMP 36.7; O2SAT 96
--- NOTE | 2023-01-02 13:14 | HO.PM.IMPN ---
Subjective Subjective Date of Service: 01/02/23 Interval History: Feeling better this morning to go IV Dilaudid for with complete resolution of pain, feels IV Benadryl helps for nausea, underwent hemodialysis this morning tolerated procedure well denies issues with transportation to hemodialysis, no other acute issues overnight blood pressure remains elevated. Review of Systems all other system reviewed and negative Physical Exam Vital Signs: Vital Signs: Last Vital Signs Temp 98.0 F 01/02/23 11:48 Pulse 103 H 01/02/23 11:48 Resp 19 01/02/23 11:48 BP 170/90 H 01/02/23 11:48 Pulse Ox 96 01/02/23 11:48 O2 Del Method Room Air 01/02/23 11:48 BMI result Body Mass Index 28.3 Const: Other: Gen: Awake alert x3, in no acute distress Legally blind Hemodialysis catheter right chest wall Neck: supple Lungs: clear to auscultation bilaterally Heart: regular rate and rhythm, no murmurs Abd: soft, non tender, no rebound, tenderness bilateral flank Ext: No leg edema, trans metatarsal amputation left foot, multiple toes amputation right foot, dressing in place for left foot wound , see picture in wound care nurse progress note Skin: warm/well-perfused Neuro: alert and oriented x3, no focal findings Psych: appropriate affect Objective Data Active Medications Acetaminophen (Acetaminophen 325 Mg Tablet) 650 mg PO Q6H PRN PRN Reason: Pain, Mild (Pain Scale 1-3) Al Hydroxide/Mg Hydroxide (Magnesium Hydrox/Alum Hydrox 30 Ml Oral.Susp) 30 ml PO Q4H PRN PRN Reason: Heartburn/Nausea Aspirin (Aspirin Enteric Coated 81 Mg Tablet.) 81 mg PO DAILY COUNT INCLUDES THE [facility] Last Admin: 01/02/23 10:22 Dose: Not Given Documented By: BEAU Non-Admin Reason: Patient Refused Atorvastatin Calcium (Atorvastatin Calcium 40 Mg Tablet) 40 mg PO BEDTIME COUNT INCLUDES THE [facility] Last Admin: 01/01/23 22:38 Dose: Not Given Documented By: BUZZ Non-Admin Reason: Patient Refused Carvedilol (Carvedilol 6.25 Mg Tablet) 6.25 mg PO BID COUNT INCLUDES THE [facility]; Protocol Last Admin: 01/02/23 10:22 Dose: Not Given Documented By: BEAU Non-Admin Reason: Patient Refused Clopidogrel Bisulfate (Clopidogrel Bisulfate 75 Mg Tablet) 75 mg PO DAILY COUNT INCLUDES THE [facility] Last Admin: 01/02/23 10:22 Dose: Not Given Documented By: BEAU Non-Admin Reason: Patient Refused Dextrose (Dextrose 50 % 25 Gm/50 Ml Syringe) 25 gm IVPUSH Q15M PRN; Protocol PRN Reason: per Hypoglycemia Standing Ord. Diphenhydramine HCl (Diphenhydramine Hcl 50 Mg/Ml Vial) 25 mg IVPUSH Q6H PRN PRN Reason: Itching Last Admin: 01/02/23 10:51 Dose: 25 mg Documented By: BEAU Glucose (Glucose Gel 15 Gm Gel..Gram.) 15 gm PO Q15M PRN; Protocol PRN Reason: per Hypoglycemia Standing Ord. Heparin Sodium (Porcine) (Heparin Sodium,Porcine 5,000 Unit/Ml Vial) 5,000 unit SUBCUT Q12H COUNT INCLUDES THE [facility] Last Admin: 01/02/23 12:47 Dose: Not Given Documented By: BEAU Non-Admin Reason: Patient Refused Hydralazine HCl (Hydralazine Hcl 20 Mg/Ml Vial) 10 mg IVPUSH Q6H PRN; Protocol PRN Reason: SBP > 190 Last Admin: 01/01/23 23:14 Dose: 10 mg Documented By: LAFLAMTy Hydromorphone HCl (Hydromorphone Hcl 1 Mg/Ml Syringe) 1 mg IVPUSH Q4H PRN; Protocol PRN Reason: Pain, Severe (Pain Scale 7-10) Last Admin: 01/02/23 12:06 Dose: 1 mg Documented By: BEAU Insulin Human Lispro (Insulin Lispro 100 Unit/Ml 3 Ml Vial) 0 unit SUBCUT QIDACHS COUNT INCLUDES THE [facility]; Protocol Last Admin: 01/02/23 11:53 Dose: Not Given Documented By: BEAU Non-Admin Reason: No Insulin Coverage Losartan Potassium (Losartan Potassium 50 Mg Tablet) 100 mg PO DAILY COUNT INCLUDES THE [facility]; Protocol Last Admin: 01/02/23 10:22 Dose: Not Given Documented By: BEAU Non-Admin Reason: Patient Refused Magnesium Hydroxide (Milk Of Magnesia 30 Ml Oral.Susp) 30 ml PO DAILY PRN PRN Reason: Constipation Melatonin (Melatonin 3 Mg Tablet) 6 mg PO BEDTIME PRN PRN Reason: Insomnia Metoclopramide HCl (Metoclopramide Hcl 5 Mg Tablet) 5 mg PO TIDAC COUNT INCLUDES THE [facility] Last Admin: 01/02/23 12:38 Dose: Not Given Documented By: BEAU Non-Admin Reason: Patient Refused Omeprazole (Omeprazole 40 Mg Capsule.) 40 mg PO DAILY@0630 COUNT INCLUDES THE [facility] Last Admin: 01/02/23 05:18 Dose: Not Given Documented By: GONZÁLEZ Non-Admin Reason: Patient Refused Ondansetron HCl (Ondansetron Hcl 4 Mg/2 Ml Vial) 4 mg IVPUSH Q8H PRN PRN Reason: Nausea and Vomiting Last Admin: 01/01/23 10:58 Dose: 4 mg Documented By: MALLIKA Comments: given early per darian Fernandez Oxycodone HCl (Oxycodone Hcl Immed Release 5 Mg Tablet) 5 mg PO Q6H PRN PRN Reason: severe pain Prochlorperazine Edisylate (Prochlorperazine Edisylate 10 Mg/2 Ml Vial) 10 mg IVPUSH Q6H PRN PRN Reason: Nausea and Vomiting Sodium Chloride (0.9 % Sodium Chloride Flush 3 Ml Syringe) 3 ml IVFLUSH QSHIFT COUNT INCLUDES THE [facility] Last Admin: 01/02/23 09:29 Dose: Not Given Documented By: BEAU Non-Admin Reason: Off unit: Dialysis Torsemide (Torsemide 20 Mg Tablet) 40 mg PO BID COUNT INCLUDES THE [facility]; Protocol Last Admin: 01/02/23 10:23 Dose: Not Given Documented By: BEAU Non-Admin Reason: Patient Refused Labs 12/29/22 20:13 12/29/22 20:13 Labs: Laboratory Results - last 24 hr 01/01/23 01/01/23 16:27 22:42 POC Glucose 119 H 94 Assessment and Plan (1) Hypertension, uncontrolled: Status: Acute (2) ESRD on dialysis: Status: Inactive (3) Gastroparesis: Status: Inactive Plan Ms. Taylor has a PMHx of ESRD, T2DM, uncontrolled HTN and noncompliance with diaylsis/medications. She is admitted with HTN emergency. 1. Accelerated hypertension -persistent elevated blood pressure -continue losartan/ torsemide bid , changed clonidine 0.3 mg qweekly on 01/01, will DC Coreg and place patient back on nifedipine 30 mg today, and if blood pressure remains elevated changed to 60 mg daily. Follow BP closely case discussed with Dr. Siddiqi 2. ESRD on HD -continue hemodialysis , discuss the need of compliance with hemodialysis -follow renals/divalents, being followed by Nephrology 3. Gastroparesis -continue Reglan/dc iv Compazine , since patient response well with IV Benadryl. 4.DM II -good blood sugar control , continue lispro correctional scale -adjust as indicated 5.HFrEF--no acute exacerbation, chronically elevated BNP, continue torsemide, and hemodialysis 6. Generalize body ache--chronic, on oxycodone by mouth as needed, will wean IV Dilaudid discussed with patient regarding fentanyl patch patient is agreeable will place on low-dose fentanyl . 7 DVT prophylaxis: heparin subQ 8. Left foot wound seen by wound nurse they recommend surgical evaluation for debridement, continue dural fiber Ag for moisture management and anti microbial properties Will consult surgery. Full code Requires ongoing hospitalization for persistent nausea vomiting unable to take by mouth medications with poor blood pressure control and adjustment of blood pressure medications. Quality Stroke Does the patient have a stroke diagnosis?: No VTE Prior VTE?: No VTE Risk Level:: Medical - moderate - high VTE Device Contraindication: Treatment Not Indicated VTE Drug Contraindication: N/A - Med Ordered
[2023-01-02] MEDS: NIFEdipine ER 30 MG TAB.ER.24 PO (14:55)
[2023-01-02] MEDS: fentaNYL 25 MCG PATCH.TD72 TRANSDERMA (14:55)
[2023-01-02 15:32] VITALS: BP 137/83; PULSE 91; RESP 18; TEMP 36.8; O2SAT 97
[2023-01-02] MEDS: HYDROmorphone HCl 1 MG/ML SYRINGE 0.5 MG IVPUSH ×2 (16:32→20:53)
--- NOTE | 2023-01-02 16:34 | P.CONGS_ITS ---
History of Present Illness Consult details Consult date: 01/02/23 Narrative: The patient is a 32-year-old woman with complex medical history on hemodialysis who reports a left plantar ulcer that has been present on her foot for several months. She stated that she was told that it is draining malodorous material. The [facility] basis but not followed up. She denies any pain or fevers. She has been walking and placing pressure in the area. I was evaluated by Wound Care and I was asked to evaluate for debridement. Review of Systems 2 Review of Systems: Yes all other systems are reviewed and are negative Constitutional: Constitutional: Reports as per [facility] Past Medical History Medical History (Updated 01/02/23 @ 16:38 by Sunny Marcus MD, FACS, FASBlossomS) ESRD on dialysis Diabetic foot ulcer associated with type 2 diabetes mellitus Chronic pain Gastroparesis Non-compliance with renal dialysis Hypertension End-stage renal disease (ESRD) Hypertensive emergency Diabetes ESRD needing dialysis Cardiomyopathy HFrEF (heart failure with reduced ejection fraction) Metabolic acidosis delivery delivered Anemia in chronic kidney disease (CKD) CKD (chronic kidney disease) Headache, migraine Abnormal finding on echocardiogram Elevated troponin Chest pain Acute worsening of stage 3 chronic kidney disease Generalized edema Sepsis Cellulitis Pleural effusion CHF (congestive heart failure) (~06/07/22) Tachycardia Atypical chest pain Bone infection PAD (peripheral artery disease) Severe anemia Cellulitis and abscess of foot DM foot ulcer Osteomyelitis test positive test positive Asthma Depression with anxiety Diabetic retinopathy Type 2 diabetes mellitus with hyperglycemia, with long-term current use of insulin Blind right eye Diabetes Back pain Family History Family History Mother Coronary artery disease Myocardial infarction Stroke Diabetes mellitus Father Myocardial infarction Surgical History Surgical History 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 Social History Social History Household Members: Family Household Members Other:: Sister, [id number], nephew Housing: Apartment Do you presently have visiting nurse or other home services: No Alcohol intake: never Patient Tobacco Use Status: Never used Tobacco Smoked in Last 30 Days: No e-Cigarette/Vaping Use: Never Used Second Hand Smoke Exposure: No Use of substances other than those prescribed or required for medical reasons: No Currently Displaying Signs/Symptoms of Drug Intoxication Withdrawal: No Any prior treatment program specific to substance use: No Have you been hit, kicked, punched, or otherwise hurt by someone within the past year? If so, by whom?: No Do you feel safe in your current relationship?: Yes Is there a partner from a previous relationship who is making you feel unsafe now?: No Are you made to feel afraid or neglected: No Advance Directives: No Advance Directives Information Provided: No Advance Directives Date on File: 03/08/20 Do you have thoughts of harming others: None Do you have a plan to hurt others: No Plan Recently lost weight without trying: No Eating poorly because of decreased appetite: No Nutrition Risks: No Nutritional Risk Patient : No : No Poor oral hygiene: No service: No Current occupational status: unemployed and disabled Gender identity: Female Meds Allergies Allergy/AdvReac Type Severity Reaction Status Date / Time morphine [MORPHINE] Allergy Intermediate Itching Verified 11/28/22 14:51 azithromycin [From Zithromax] Allergy Hives Verified 11/28/22 14:51 gabapentin Allergy Facial Verified 11/28/22 14:51 Swelling tramadol Allergy Facial Verified 11/28/22 14:51 Swelling vancomycin Allergy Hives Verified 11/28/22 14:51 Active Medications: Current Medications Acetaminophen (Acetaminophen 325 Mg Tablet) 650 mg PO Q6H PRN PRN Reason: Pain, Mild (Pain Scale 1-3) Al Hydroxide/Mg Hydroxide (Magnesium Hydrox/Alum Hydrox 30 Ml Oral.Susp) 30 ml PO Q4H PRN PRN Reason: Heartburn/Nausea Aspirin (Aspirin Enteric Coated 81 Mg Tablet.Dr) 81 mg PO DAILY [facility] Last Admin: 01/02/23 10:22 Dose: Not Given Atorvastatin Calcium (Atorvastatin Calcium 40 Mg Tablet) 40 mg PO BEDTIME [facility] Last Admin: 01/01/23 22:38 Dose: Not Given Clopidogrel Bisulfate (Clopidogrel Bisulfate 75 Mg Tablet) 75 mg PO DAILY [facility] Last Admin: 01/02/23 10:22 Dose: Not Given Dextrose (Dextrose 50 % 25 Gm/50 Ml Syringe) 25 gm IVPUSH Q15M PRN; Protocol PRN Reason: per Hypoglycemia Standing Ord. Diphenhydramine HCl (Diphenhydramine Hcl 50 Mg/Ml Vial) 25 mg IVPUSH Q6H PRN PRN Reason: Itching Last Admin: 01/02/23 10:51 Dose: 25 mg Fentanyl (Fentanyl 25 Mcg Patch.Td72) 25 mcg TRANSDERMA Q72H [facility] Last Admin: 01/02/23 14:55 Dose: 25 mcg Glucose (Glucose Gel 15 Gm Gel..Gram.) 15 gm PO Q15M PRN; Protocol PRN Reason: per Hypoglycemia Standing Ord. Heparin Sodium (Porcine) (Heparin Sodium,Porcine 5,000 Unit/Ml Vial) 5,000 unit SUBCUT Q12H [facility] Last Admin: 01/02/23 12:47 Dose: Not Given Hydralazine HCl (Hydralazine Hcl 20 Mg/Ml Vial) 10 mg IVPUSH Q6H PRN; Protocol PRN Reason: SBP > 190 Last Admin: 01/01/23 23:14 Dose: 10 mg Hydromorphone HCl (Hydromorphone Hcl 1 Mg/Ml Syringe) 0.5 mg IVPUSH Q4H PRN; Protocol PRN Reason: Pain, Severe (Pain Scale 7-10) Insulin Human Lispro (Insulin Lispro 100 Unit/Ml 3 Ml Vial) 0 unit SUBCUT QIDACHS [facility]; Protocol Last Admin: 01/02/23 11:53 Dose: Not Given Losartan Potassium (Losartan Potassium 50 Mg Tablet) 100 mg PO DAILY [facility]; Protocol Last Admin: 01/02/23 10:22 Dose: Not Given Magnesium Hydroxide (Milk Of Magnesia 30 Ml Oral.Susp) 30 ml PO DAILY PRN PRN Reason: Constipation Melatonin (Melatonin 3 Mg Tablet) 6 mg PO BEDTIME PRN PRN Reason: Insomnia Metoclopramide HCl (Metoclopramide Hcl 5 Mg Tablet) 5 mg PO TIDAC [facility] Last Admin: 01/02/23 12:38 Dose: Not Given Nifedipine (Nifedipine Er 30 Mg Tab.Er.24) 30 mg PO DAILY [facility]; Protocol Last Admin: 01/02/23 14:55 Dose: 30 mg Omeprazole (Omeprazole 40 Mg Capsule.Dr) 40 mg PO DAILY@0630 [facility] Last Admin: 01/02/23 05:18 Dose: Not Given Ondansetron HCl (Ondansetron Hcl 4 Mg/2 Ml Vial) 4 mg IVPUSH Q8H PRN PRN Reason: Nausea and Vomiting Last Admin: 01/01/23 10:58 Dose: 4 mg Oxycodone HCl (Oxycodone Hcl Immed Release 5 Mg Tablet) 5 mg PO Q6H PRN PRN Reason: severe pain Prochlorperazine Edisylate (Prochlorperazine Edisylate 10 Mg/2 Ml Vial) 10 mg IVPUSH Q6H PRN PRN Reason: Nausea and Vomiting Sodium Chloride (0.9 % Sodium Chloride Flush 3 Ml Syringe) 3 ml IVFLUSH QSHIFT [facility] Last Admin: 01/02/23 09:29 Dose: Not Given Torsemide (Torsemide 20 Mg Tablet) 40 mg PO BID [facility]; Protocol Last Admin: 01/02/23 10:23 Dose: Not Given Physical Exam 2 Vital Signs: Vital Signs: Last Vital Signs Temp 98.3 F 01/02/23 15:32 Pulse 91 01/02/23 15:32 Resp 18 01/02/23 15:32 BP 137/83 01/02/23 15:32 Pulse Ox 97 01/02/23 15:32 O2 Del Method Room Air 01/02/23 15:32 BMI result Body Mass Index 28.3 On exam, the patient is nontoxic She is supine in the bed Her left foot dressing was taken down and there was approximately a 3-1/2-4 cm callus around an ulcer approximate 1.0 x 1.0 cm that is wet with no malodorous/feculent drainage appreciated. Typical foot odor is appreciated. Results Labs 12/29/22 20:13 12/29/22 20:13 Labs: Abnormal lab results 01/01/23 Range/Units 16:27 POC Glucose 119 H (60-115) mg/dL All other labs normal. Assessment and Plan (1) Hypertension, uncontrolled: Status: Acute Procedures Date of Service Date of Service: 01/02/23 Abscess I/D Technique: other Procedure Note Procedure Note: Pre/post-op: Left foot plantar callus 3.5x4.0cm with open ulcer 1.0x1.0cm Procedure: callous trimming of same The risks of bleeding, infection, pain, need to be evaluated by another surgeon who specializes in chronic diabetic foot problems was discussed with the patient. She seemed understand the option and wanted to proceed. Procedure: Using scissors, the hypertrophic callus surrounding the 1.0 x 1.0 cm ulcer of the left plantar foot was trimmed to the epidermis. There was some friability to the ulcer but no grossly malodorous drainage was appreciated and no crepitance was noted. The area was lightly dressed and the nurse notified to resume prior dressings. Patient tolerated the procedure well. Will order a foot x-ray for tomorrow to assess for possible osteo given the chronicity and neglect by the patient.
[2023-01-02 16:40] LABS: Glucose, Whole Blood 125 mg/dL (60-115)
--- NOTE | 2023-01-02 18:23 | PC.NURSE ---
Patient refused all PO meds in the morning, stated she felt nauseous, ok with IV medications for pain, she did finally agree to take Nifedipine in the afternoon.
--- NOTE | 2023-01-02 18:28 | PC.NURSE ---
Patient was seen by surgeon, callus trimming performed by surgeon, dressing changed - applied durafiber AG and gauze bandage.
--- NOTE | 2023-01-02 18:49 | P.PNNP_ITS ---
Subjective Subjective Date of Service: 01/02/23 Interval history: Seen and examiend, events as noted Physical Exam 2 Vital Signs: Vital Signs: Last Vital Signs Temp 98.3 F 01/02/23 15:32 Pulse 91 01/02/23 15:32 Resp 18 01/02/23 15:32 BP 137/83 01/02/23 15:32 Pulse Ox 97 01/02/23 15:32 O2 Del Method Room Air 01/02/23 15:32 BMI result Body Mass Index 28.3 Const: Other: Constitutional: Alert, in no distress, overweight. Mental Status: Oriented to person, place and time. Eyes: legally blind Ear, Nose and Throat: Oropharynx clear, mucous membranes moist. Respiratory: Clear to auscultation. No wheezing, rales or rhonchi. Cardiovascular: S1 S2 regular. No murmurs, rubs or gallops. Gastrointestinal: Abdomen soft, non-tender, non-distended. Normal bowel sounds.? Neurologic: Cranial nerves II-XII grossly intact. No focal neurological deficits. Moves all extremities spontaneously.? Skin: No rashes or lesions.? Musculoskeletal: No cyanosis or clubbing. Psychiatric: Normal mood and affect? Objective Data Labs 12/29/22 20:13 12/29/22 20:13 Labs: Laboratory Results - last 24 hr 01/01/23 01/02/23 22:42 16:35 POC Glucose 94 125 H Procedures Date of Service Date of Service: 01/02/23 Assessment & Plan Assessment and plan (1) Hypertension, uncontrolled: Status: Acute (2) ESRD on dialysis: Status: Acute Plan Ms. Taylor has a PMHx of ESRD, T2DM, uncontrolled HTN and noncompliance with diaylsis/medications. She is admitted with HTN emergency. 1. ESRD Continue TTS dialysis ESRD diet, salt and potassium restricted 2. 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 Progress Note: Quality Stroke Does the patient have a stroke diagnosis?: No
[2023-01-02 19:10] VITALS: BP 113/64; PULSE 89; RESP 18; TEMP 36.6; O2SAT 96
[2023-01-02] MEDS: Torsemide 20 MG TABLET 40 MG PO (20:34)
[2023-01-02 20:39] LABS: Glucose, Whole Blood 133 mg/dL (60-115)
[2023-01-02] MEDS: 0.9 % Sodium Chloride Flush 3 ML SYRINGE IVFLUSH (20:54)
[2023-01-02 23:38] VITALS: BP 138/84; PULSE 99; RESP 20; TEMP 36.3; O2SAT 98
[2023-01-03 04:00] VITALS: BP 117/59; PULSE 100; RESP 20; TEMP 36.2; O2SAT 98
[2023-01-03] MEDS: HYDROmorphone HCl 1 MG/ML SYRINGE 0.5 MG IVPUSH ×4 (04:34→21:41)
[2023-01-03] MEDS: diphenhydrAMINE HCL 50 MG/ML VIAL 25 MG IVPUSH ×4 (04:39→23:03)
[2023-01-03 07:07] VITALS: BP 125/73; PULSE 100; RESP 20; TEMP 36.7; O2SAT 99
[2023-01-03 07:09] LABS: Glucose, Whole Blood 174 mg/dL (60-115)
[2023-01-03] MEDS: 0.9 % Sodium Chloride Flush 3 ML SYRINGE IVFLUSH ×3 (08:37→23:03)
[2023-01-03] MEDS: NIFEdipine ER 30 MG TAB.ER.24 PO (08:37)
[2023-01-03] MEDS: Insulin Lispro 100 UNIT/ML 3 ML VIAL SUBCUT ×2 (08:37→16:30)
[2023-01-03] MEDS: Torsemide 20 MG TABLET 40 MG PO (08:37)
[2023-01-03] MEDS: Aspirin Enteric Coated 81 MG TABLET.DR PO (08:37)
--- NOTE | 2023-01-03 09:04 | P.PNGS_ITS ---
Subjective Subjective Date of Service: 01/03/23 Interval history: No new complaints. Physical Exam 2 Vital Signs: Vital Signs: Last Vital Signs Temp 98.1 F 01/03/23 07:07 Pulse 100 01/03/23 07:07 Resp 20 01/03/23 07:07 BP 125/73 01/03/23 07:07 Pulse Ox 99 01/03/23 07:07 O2 Del Method Room Air 01/03/23 07:07 BMI result Body Mass Index 28.3 Const: General: no acute distress and alert Orientation/consciousness: p atient oriented x3 Skin: General skin exam: no rashes or lesions noted Neuro: General: patient oriented x3 Extrem: Other: left plantar ulcer clean appearing, no surrounding erythema, fluctuance, no tunneling Objective Data Active Medications Acetaminophen (Acetaminophen 325 Mg Tablet) 650 mg PO Q6H PRN PRN Reason: Pain, Mild (Pain Scale 1-3) Al Hydroxide/Mg Hydroxide (Magnesium Hydrox/Alum Hydrox 30 Ml Oral.Susp) 30 ml PO Q4H PRN PRN Reason: Heartburn/Nausea Aspirin (Aspirin Enteric Coated 81 Mg Tablet.Dr) 81 mg PO DAILY [facility] Last Admin: 01/03/23 08:37 Dose: 81 mg Documented By: RAFAEL Atorvastatin Calcium (Atorvastatin Calcium 40 Mg Tablet) 40 mg PO BEDTIME [facility] Last Admin: 01/02/23 20:35 Dose: Not Given Documented By: BUZZ Non-Admin Reason: only wants BP med Clopidogrel Bisulfate (Clopidogrel Bisulfate 75 Mg Tablet) 75 mg PO DAILY [facility] Last Admin: 01/03/23 08:37 Dose: Not Given Documented By: RAFAEL Non-Admin Reason: Patient Refused Dextrose (Dextrose 50 % 25 Gm/50 Ml Syringe) 25 gm IVPUSH Q15M PRN; Protocol PRN Reason: per Hypoglycemia Standing Ord. Diphenhydramine HCl (Diphenhydramine Hcl 50 Mg/Ml Vial) 25 mg IVPUSH Q6H PRN PRN Reason: Itching Last Admin: 01/03/23 04:39 Dose: 25 mg Documented By: BUZZ Fentanyl (Fentanyl 25 Mcg Patch.Td72) 25 mcg TRANSDERMA Q72H [facility] Last Admin: 01/02/23 14:55 Dose: 25 mcg Documented By: BEAU Glucose (Glucose Gel 15 Gm Gel..Gram.) 15 gm PO Q15M PRN; Protocol PRN Reason: per Hypoglycemia Standing Ord. Heparin Sodium (Porcine) (Heparin Sodium,Porcine 5,000 Unit/Ml Vial) 5,000 unit SUBCUT Q12H [facility] Last Admin: 01/02/23 23:43 Dose: Not Given Documented By: BUZZ Non-Admin Reason: Patient Refused Comments: pt educated on purpose of heparin for DVTP and implications of prolonged immobility Hydralazine HCl (Hydralazine Hcl 20 Mg/Ml Vial) 10 mg IVPUSH Q6H PRN; Protocol PRN Reason: SBP > 190 Last Admin: 01/01/23 23:14 Dose: 10 mg Documented By: BUZZ Hydromorphone HCl (Hydromorphone Hcl 1 Mg/Ml Syringe) 0.5 mg IVPUSH Q4H PRN; Protocol PRN Reason: Pain, Severe (Pain Scale 7-10) Last Admin: 01/03/23 08:37 Dose: 0.5 mg Documented By: RAFAEL Insulin Human Lispro (Insulin Lispro 100 Unit/Ml 3 Ml Vial) 0 unit SUBCUT QIDACHS [facility]; Protocol Last Admin: 01/03/23 08:37 Dose: 2 unit Documented By: RAFAEL Losartan Potassium (Losartan Potassium 50 Mg Tablet) 100 mg PO DAILY [facility]; Protocol Last Admin: 01/03/23 08:37 Dose: Not Given Documented By: RAFAEL Non-Admin Reason: Patient Refused Magnesium Hydroxide (Milk Of Magnesia 30 Ml Oral.Susp) 30 ml PO DAILY PRN PRN Reason: Constipation Melatonin (Melatonin 3 Mg Tablet) 6 mg PO BEDTIME PRN PRN Reason: Insomnia Metoclopramide HCl (Metoclopramide Hcl 5 Mg Tablet) 5 mg PO TIDAC [facility] Last Admin: 01/03/23 08:28 Dose: Not Given Documented By: RAFAEL Non-Admin Reason: Patient Refused Nifedipine (Nifedipine Er 30 Mg Tab.Er.24) 30 mg PO DAILY [facility]; Protocol Last Admin: 01/03/23 08:37 Dose: 30 mg Documented By: RAFAEL Omeprazole (Omeprazole 40 Mg Capsule.Dr) 40 mg PO DAILY@0630 [facility] Last Admin: 01/03/23 06:33 Dose: Not Given Documented By: GONZÁLEZ Non-Admin Reason: Patient Refused Ondansetron HCl (Ondansetron Hcl 4 Mg/2 Ml Vial) 4 mg IVPUSH Q8H PRN PRN Reason: Nausea and Vomiting Last Admin: 01/01/23 10:58 Dose: 4 mg Documented By: MALLIKA Comments: given early per darian Fernandez Oxycodone HCl (Oxycodone Hcl Immed Release 5 Mg Tablet) 5 mg PO Q6H PRN PRN Reason: severe pain Prochlorperazine Edisylate (Prochlorperazine Edisylate 10 Mg/2 Ml Vial) 10 mg IVPUSH Q6H PRN PRN Reason: Nausea and Vomiting Sodium Chloride (0.9 % Sodium Chloride Flush 3 Ml Syringe) 3 ml IVFLUSH QSHIFT [facility] Last Admin: 01/03/23 08:37 Dose: 3 ml Documented By: RAFAEL Torsemide (Torsemide 20 Mg Tablet) 40 mg PO BID [facility]; Protocol Last Admin: 01/03/23 08:37 Dose: 40 mg Documented By: RAFAEL Labs 12/29/22 20:13 12/29/22 20:13 Labs: Laboratory Results - last 24 hr 01/02/23 01/02/23 01/03/23 16:35 20:34 07:05 POC Glucose 125 H 133 H 174 H Procedures Date of Service Date of Service: 01/03/23 Progress Note: A&P Assessment and plan (1) ESRD on dialysis: Status: Acute (2) Diabetic foot ulcer associated with type 2 diabetes mellitus: Status: Acute Plan Excisional debridement of callus performed at bedside yesterday by Dr. Marcus. The ulcer remains clean appearing this morning, wound dressing changed. Can continue current daily dressing changes of silver alginate to ulcer base followed by fluffs and kerlix wrap. Foot xray this am with likely chronic changes. Discussed need for good wound care with the patient. Patient reports she will follow up with wound care center upon discharge. Time Spent With Patient Time: Total time managing care of this patient today ____ minutes. Quality Stroke Does the patient have a stroke diagnosis?: No VTE Prior VTE?: No VTE Risk Level:: Medical - moderate - high VTE Device Contraindication: Treatment Not Indicated VTE Drug Contraindication: N/A - Med Ordered
--- NOTE | 2023-01-03 10:12 | MHC.CM.PN ---
Per ROUNDS discussion, Patient is anticipated to be ready to return home tomorrow; CM will follow.
--- NOTE | 2023-01-03 10:25 | HO.PM.IMPN ---
Subjective Subjective Date of Service: 01/03/23 Interval History: Took antihypertensive medications this morning, less nauseous, pain under good control, requiring left foot plantar ulcer debridement by General surgery, is mostly bedridden or on wheelchair has not walked in last couple years, denies headache, no fevers, no chills,, no acute issues overnight. Review of Systems All other system reviewed and negative. Physical Exam Vital Signs: Vital Signs: Last Vital Signs Temp 98.1 F 01/03/23 07:07 Pulse 100 01/03/23 07:07 Resp 20 01/03/23 07:07 BP 125/73 01/03/23 07:07 Pulse Ox 99 01/03/23 07:07 O2 Del Method Room Air 01/03/23 07:07 BMI result Body Mass Index 28.3 Const: Other: Gen: Awake alert x3, in no distress Legally blind Hemodialysis catheter right chest wall Neck: supple Lungs: clear to auscultation bilaterally Heart: regular rate and rhythm, no murmurs Abd: soft, non tender, no rebound, tenderness bilateral flank Ext: No leg edema, trans metatarsal amputation left foot, multiple toes amputation right foot,1.0 x 1.0 cm plantar ulcer with surrounding callus and no drainage , see picture in wound care nurse progress note Skin: warm/well-perfused Neuro: alert and oriented x3, no focal findings Psych: appropriate affect Objective Data Active Medications Acetaminophen (Acetaminophen 325 Mg Tablet) 650 mg PO Q6H PRN PRN Reason: Pain, Mild (Pain Scale 1-3) Al Hydroxide/Mg Hydroxide (Magnesium Hydrox/Alum Hydrox 30 Ml Oral.Susp) 30 ml PO Q4H PRN PRN Reason: Heartburn/Nausea Aspirin (Aspirin Enteric Coated 81 Mg Tablet.Dr) 81 mg PO DAILY [facility] Last Admin: 01/03/23 08:37 Dose: 81 mg Documented By: RAFAEL Atorvastatin Calcium (Atorvastatin Calcium 40 Mg Tablet) 40 mg PO BEDTIME [facility] Last Admin: 01/02/23 20:35 Dose: Not Given Documented By: BUZZ Non-Admin Reason: only wants BP med Clopidogrel Bisulfate (Clopidogrel Bisulfate 75 Mg Tablet) 75 mg PO DAILY [facility] Last Admin: 01/03/23 08:37 Dose: Not Given Documented By: RAFAEL Non-Admin Reason: Patient Refused Dextrose (Dextrose 50 % 25 Gm/50 Ml Syringe) 25 gm IVPUSH Q15M PRN; Protocol PRN Reason: per Hypoglycemia Standing Ord. Diphenhydramine HCl (Diphenhydramine Hcl 50 Mg/Ml Vial) 25 mg IVPUSH Q6H PRN PRN Reason: Itching Last Admin: 01/03/23 04:39 Dose: 25 mg Documented By: BUZZ Fentanyl (Fentanyl 25 Mcg Patch.Td72) 25 mcg TRANSDERMA Q72H [facility] Last Admin: 01/02/23 14:55 Dose: 25 mcg Documented By: BEAU Glucose (Glucose Gel 15 Gm Gel..Gram.) 15 gm PO Q15M PRN; Protocol PRN Reason: per Hypoglycemia Standing Ord. Heparin Sodium (Porcine) (Heparin Sodium,Porcine 5,000 Unit/Ml Vial) 5,000 unit SUBCUT Q12H [facility] Last Admin: 01/02/23 23:43 Dose: Not Given Documented By: BUZZ Non-Admin Reason: Patient Refused Comments: pt educated on purpose of heparin for DVTP and implications of prolonged immobility Hydralazine HCl (Hydralazine Hcl 20 Mg/Ml Vial) 10 mg IVPUSH Q6H PRN; Protocol PRN Reason: SBP > 190 Last Admin: 01/01/23 23:14 Dose: 10 mg Documented By: BUZZ Hydromorphone HCl (Hydromorphone Hcl 1 Mg/Ml Syringe) 0.5 mg IVPUSH Q4H PRN; Protocol PRN Reason: Pain, Severe (Pain Scale 7-10) Last Admin: 01/03/23 08:37 Dose: 0.5 mg Documented By: RAFAEL Insulin Human Lispro (Insulin Lispro 100 Unit/Ml 3 Ml Vial) 0 unit SUBCUT QIDACHS [facility]; Protocol Last Admin: 01/03/23 08:37 Dose: 2 unit Documented By: RAFAEL Losartan Potassium (Losartan Potassium 50 Mg Tablet) 100 mg PO DAILY [facility]; Protocol Last Admin: 01/03/23 08:37 Dose: Not Given Documented By: RAFAEL Non-Admin Reason: Patient Refused Magnesium Hydroxide (Milk Of Magnesia 30 Ml Oral.Susp) 30 ml PO DAILY PRN PRN Reason: Constipation Melatonin (Melatonin 3 Mg Tablet) 6 mg PO BEDTIME PRN PRN Reason: Insomnia Metoclopramide HCl (Metoclopramide Hcl 5 Mg Tablet) 5 mg PO TIDAC [facility] Last Admin: 01/03/23 08:28 Dose: Not Given Documented By: RAFAEL Non-Admin Reason: Patient Refused Nifedipine (Nifedipine Er 30 Mg Tab.Er.24) 30 mg PO DAILY [facility]; Protocol Last Admin: 01/03/23 08:37 Dose: 30 mg Documented By: RAFAEL Omeprazole (Omeprazole 40 Mg Capsule.Dr) 40 mg PO DAILY@0630 [facility] Last Admin: 01/03/23 06:33 Dose: Not Given Documented By: GONZÁLEZ Non-Admin Reason: Patient Refused Ondansetron HCl (Ondansetron Hcl 4 Mg/2 Ml Vial) 4 mg IVPUSH Q8H PRN PRN Reason: Nausea and Vomiting Last Admin: 01/01/23 10:58 Dose: 4 mg Documented By: MALLIKA Comments: given early per darian Fernandez Oxycodone HCl (Oxycodone Hcl Immed Release 5 Mg Tablet) 5 mg PO Q6H PRN PRN Reason: severe pain Prochlorperazine Edisylate (Prochlorperazine Edisylate 10 Mg/2 Ml Vial) 10 mg IVPUSH Q6H PRN PRN Reason: Nausea and Vomiting Sodium Chloride (0.9 % Sodium Chloride Flush 3 Ml Syringe) 3 ml IVFLUSH QSHIFT [facility] Last Admin: 01/03/23 08:37 Dose: 3 ml Documented By: RAFAEL Torsemide (Torsemide 20 Mg Tablet) 40 mg PO BID [facility]; Protocol Last Admin: 01/03/23 08:37 Dose: 40 mg Documented By: RAFAEL Labs 12/29/22 20:13 12/29/22 20:13 Labs: Laboratory Results - last 24 hr 01/02/23 01/02/23 01/03/23 16:35 20:34 07:05 POC Glucose 125 H 133 H 174 H Assessment and Plan (1) Hypertension, uncontrolled: Status: Acute (2) ESRD on dialysis: Status: Acute (3) Gastroparesis: Status: Inactive Plan Ms. Taylor has a PMHx of ESRD, T2DM, uncontrolled HTN and noncompliance with diaylsis/medications. She is admitted with HTN emergency. 1. Accelerated hypertension -better blood pressure control on current management, recommend compliance with current medications -continue losartan/ torsemide bid , clonidine 0.3 mg qweekly placed on 01/01, nifedipine 30 mg today, Follow BP closely case discussed with Dr. Siddiqi 2. ESRD on HD -continue hemodialysis , discuss the need of compliance with hemodialysis, patient skip hemodialysis due to pain and not due to transportation issues -follow renals/divalents, being followed by Nephrology 3. Gastroparesis -continue Reglan, and IV Benadryl prn. 4.DM II -good blood sugar control , continue lispro correctional scale -adjust as indicated 5.HFrEF--no acute exacerbation, chronically elevated BNP, continue torsemide, and hemodialysis 6. Generalize body ache--chronic, on oxycodone 5 mg q.4 hours by mouth as needed, take 3-4 pills daily will wean IV Dilaudid , started on fentanyl patch for better pain control 7 DVT prophylaxis: heparin subQ 8. Left foot wound Left foot plantar callus 3.5x4.0cm with open ulcer 1.0x1.0cm, underwent bedside debridement by General surgery continue dural fiber Ag for moisture management , recommend outpatient follow-up with wound clinic. X-ray of foot showed no acute osteomyelitis Full code Requires ongoing hospitalization for persistent nausea vomiting unable to take by mouth medications with poor blood pressure control and adjustment of blood pressure medications. Quality Stroke Does the patient have a stroke diagnosis?: No VTE Prior VTE?: No VTE Risk Level:: Medical - moderate - high VTE Device Contraindication: Treatment Not Indicated VTE Drug Contraindication: N/A - Med Ordered
[2023-01-03 10:58] VITALS: BP 135/86; PULSE 107; RESP 20; TEMP 36.6; O2SAT 98
[2023-01-03 10:59] LABS: Glucose, Whole Blood 105 mg/dL (60-115)
--- NOTE | 2023-01-03 13:30 | PC.NURSE ---
Pt states that she had been unable to void since sunday morning. This RN bladder scanned pt. and it came back as >999 mls. This RN straight cathed pt. per MD orders and 1400 mls were drained.
[2023-01-03 15:25] VITALS: BP 136/76; PULSE 111; RESP 20; TEMP 36.6; O2SAT 97
[2023-01-03 16:09] LABS: Glucose, Whole Blood 210 mg/dL (60-115)
--- NOTE | 2023-01-03 19:06 | P.PNNP_ITS ---
Subjective Subjective Date of Service: 01/03/23 Interval history: Seen and examned, events noted Physical Exam 2 Vital Signs: Vital Signs: Last Vital Signs Temp 97.9 F 01/03/23 15:25 Pulse 111 H 01/03/23 15:25 Resp 20 01/03/23 15:25 BP 136/76 01/03/23 15:25 Pulse Ox 97 01/03/23 15:25 O2 Del Method Room Air 01/03/23 15:25 BMI result Body Mass Index 28.3 Const: Other: Constitutional: Alert, in no distress, overweight. Mental Status: Oriented to person, place and time. Eyes: legally blind Ear, Nose and Throat: Oropharynx clear, mucous membranes moist. Respiratory: Clear to auscultation. No wheezing, rales or rhonchi. Cardiovascular: S1 S2 regular. No murmurs, rubs or gallops. Gastrointestinal: Abdomen soft, non-tender, non-distended. Normal bowel sounds.? Neurologic: Cranial nerves II-XII grossly intact. No focal neurological deficits. Moves all extremities spontaneously.? Skin: No rashes or lesions.? Musculoskeletal: No cyanosis or clubbing. Psychiatric: Normal mood and affect? Objective Data Labs 12/29/22 20:13 12/29/22 20:13 Labs: Laboratory Results - last 24 hr 01/02/23 01/03/23 01/03/23 20:34 07:05 10:55 POC Glucose 133 H 174 H 105 01/03/23 16:01 POC Glucose 210 H Procedures Date of Service Date of Service: 01/03/23 Assessment & Plan Assessment and plan (1) Hypertension, uncontrolled: Status: Acute (2) ESRD on dialysis: Status: Acute Plan Ms. Taylor has a PMHx of ESRD, T2DM, uncontrolled HTN and noncompliance with diaylsis/medications. She is admitted with HTN emergency. 1. ESRD Continue TTS dialysis ESRD diet, salt and potassium restricted 2. 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 Progress Note: Quality Stroke Does the patient have a stroke diagnosis?: No
[2023-01-03 20:00] VITALS: BP 120/87; PULSE 78; RESP 18; TEMP 37.1; O2SAT 98
[2023-01-03 20:28] LABS: Glucose, Whole Blood 143 mg/dL (60-115)
[2023-01-03 23:51] VITALS: BP 116/65; PULSE 89; RESP 18; TEMP 37.1; O2SAT 98
[2023-01-04 03:02] VITALS: BP 135/76; PULSE 105; RESP 17; TEMP 37.1; O2SAT 98
[2023-01-04] MEDS: HYDROmorphone HCl 1 MG/ML SYRINGE 0.5 MG IVPUSH (03:53)
[2023-01-04] MEDS: diphenhydrAMINE HCL 50 MG/ML VIAL 25 MG IVPUSH (05:10)
--- NOTE | 2023-01-04 06:27 | PC.NURSE ---
Patient bladder scanned this am for 915 ml. Hospitalist notified , edwards catheter placed as per order . Patient tolerated well.
[2023-01-04 07:00] LABS: Glucose, Whole Blood 165 mg/dL (60-115)
[2023-01-04 07:21] VITALS: BP 138/80; PULSE 100; RESP 20; TEMP 36.1; O2SAT 100
[2023-01-04] MEDS: Aspirin Enteric Coated 81 MG TABLET.DR PO (07:51)
[2023-01-04] MEDS: Insulin Lispro 100 UNIT/ML 3 ML VIAL SUBCUT ×3 (07:51→17:07)
[2023-01-04] MEDS: NIFEdipine ER 30 MG TAB.ER.24 PO (07:51)
[2023-01-04] MEDS: Torsemide 20 MG TABLET 40 MG PO (07:51)
[2023-01-04] MEDS: oxyCODONE HCl Immed Release 5 MG TABLET PO (10:25)
--- NOTE | 2023-01-04 11:00 | PC.NURSE ---
Addendum entered by Tammy Padilla RN 01/04/23 18:17: Pt. was due to void at 1630, upon talking to pt. she states that she has not been able to go yet. Pt. bladder scanned and showed 260mls. MD notified and recommended increased po intake, talked with pt. and pt. agreed to increase fluid intake. Fresh water pitcher at bedside and within reach. Original Note: Per MD and infection control edwards was to be removed. Edwards removed at 10:30 pt. due to void at 1630. will continue to encourage p. to use commode.
[2023-01-04 11:14] LABS: Glucose, Whole Blood 190 mg/dL (60-115)
[2023-01-04 11:18] VITALS: BP 165/92; PULSE 106; RESP 20; TEMP 36.2; O2SAT 100
[2023-01-04] MEDS: Acetaminophen 325 MG TABLET 650 MG PO (12:12)
--- NOTE | 2023-01-04 15:45 | P.PNIM_ITS ---
Subjective Subjective Date of Service: 01/04/23 Interval History: Complaining of Carrero catheter that has bothering her, was unable to void yesterday noted to have bladder scan of 1000, denies voiding issues in the past, denies fevers, no chills good pain control no nausea, no vomiting. Review of Systems All other system reviewed and negative. Physical Exam 2 Vital Signs: Vital Signs: Last Vital Signs Temp 97.1 F 01/04/23 11:18 Pulse 106 H 01/04/23 11:18 Resp 20 01/04/23 11:18 BP 165/92 H 01/04/23 11:18 Pulse Ox 100 01/04/23 11:18 O2 Del Method Room Air 01/04/23 11:18 BMI result Body Mass Index 28.3 Const: Other: Gen: Awake alert x3, in no distress Legally blind Hemodialysis catheter right chest wall Neck: supple Lungs: clear to auscultation bilaterally Heart: regular rate and rhythm, no murmurs Abd: soft, non tender, no rebound, tenderness bilateral flank Ext: No leg edema, trans metatarsal amputation left foot, multiple toes amputation right foot,1.0 x 1.0 cm plantar ulcer with surrounding callus and no drainage , see picture in wound care nurse progress note Skin: warm/well-perfused Neuro: alert and oriented x3, no focal findings Psych: appropriate affect Carrero in place Objective Data Active Medications Acetaminophen (Acetaminophen 325 Mg Tablet) 650 mg PO Q6H PRN PRN Reason: Pain, Mild (Pain Scale 1-3) Last Admin: 01/04/23 12:12 Dose: 650 mg Documented By: RAFAEL Al Hydroxide/Mg Hydroxide (Magnesium Hydrox/Alum Hydrox 30 Ml Oral.Susp) 30 ml PO Q4H PRN PRN Reason: Heartburn/Nausea Aspirin (Aspirin Enteric Coated 81 Mg Tablet.) 81 mg PO DAILY [facility] Last Admin: 01/04/23 07:51 Dose: 81 mg Documented By: RAFAEL Atorvastatin Calcium (Atorvastatin Calcium 40 Mg Tablet) 40 mg PO BEDTIME [facility] Last Admin: 01/03/23 20:09 Dose: Not Given Documented By: GONZALO Non-Admin Reason: Patient Refused Clopidogrel Bisulfate (Clopidogrel Bisulfate 75 Mg Tablet) 75 mg PO DAILY [facility] Last Admin: 01/04/23 07:25 Dose: Not Given Documented By: RAFAEL Non-Admin Reason: Patient Refused Dextrose (Dextrose 50 % 25 Gm/50 Ml Syringe) 25 gm IVPUSH Q15M PRN; Protocol PRN Reason: per Hypoglycemia Standing Ord. Fentanyl (Fentanyl 25 Mcg Patch.Td72) 25 mcg TRANSDERMA Q72H [facility] Last Admin: 01/02/23 14:55 Dose: 25 mcg Documented By: DOBROB Glucose (Glucose Gel 15 Gm Gel..Gram.) 15 gm PO Q15M PRN; Protocol PRN Reason: per Hypoglycemia Standing Ord. Heparin Sodium (Porcine) (Heparin Sodium,Porcine 5,000 Unit/Ml Vial) 5,000 unit SUBCUT Q12H [facility] Last Admin: 01/04/23 12:01 Dose: Not Given Documented By: RAFAEL Non-Admin Reason: Patient Refused Insulin Human Lispro (Insulin Lispro 100 Unit/Ml 3 Ml Vial) 0 unit SUBCUT QIDACHS [facility]; Protocol Last Admin: 01/04/23 12:12 Dose: 2 unit Documented By: RAFAEL Losartan Potassium (Losartan Potassium 50 Mg Tablet) 100 mg PO DAILY [facility]; Protocol Last Admin: 01/04/23 07:25 Dose: Not Given Documented By: RAFAEL Non-Admin Reason: Patient Refused Magnesium Hydroxide (Milk Of Magnesia 30 Ml Oral.Susp) 30 ml PO DAILY PRN PRN Reason: Constipation Melatonin (Melatonin 3 Mg Tablet) 6 mg PO BEDTIME PRN PRN Reason: Insomnia Metoclopramide HCl (Metoclopramide Hcl 5 Mg Tablet) 5 mg PO TIDAC [facility] Last Admin: 01/04/23 12:01 Dose: Not Given Documented By: RAFAEL Non-Admin Reason: Patient Refused Nifedipine (Nifedipine Er 30 Mg Tab.Er.24) 30 mg PO DAILY [facility]; Protocol Last Admin: 01/04/23 07:51 Dose: 30 mg Documented By: RAFAEL Omeprazole (Omeprazole 40 Mg Capsule.) 40 mg PO DAILY@0630 [facility] Last Admin: 01/04/23 05:17 Dose: Not Given Documented By: GONZALO Non-Admin Reason: Patient Refused Ondansetron HCl (Ondansetron Hcl 4 Mg/2 Ml Vial) 4 mg IVPUSH Q8H PRN PRN Reason: Nausea and Vomiting Last Admin: 01/01/23 10:58 Dose: 4 mg Documented By: MALLIKA Comments: given early per darian Fernandez Oxycodone HCl (Oxycodone Hcl Immed Release 5 Mg Tablet) 5 mg PO Q6H PRN PRN Reason: severe pain Last Admin: 01/04/23 10:25 Dose: 5 mg Documented By: RAFAEL Sodium Chloride (0.9 % Sodium Chloride Flush 3 Ml Syringe) 3 ml IVFLUSH QSHIFT [facility] Last Admin: 01/04/23 07:54 Dose: Not Given Documented By: RAFAEL Non-Admin Reason: Previously Administered Torsemide (Torsemide 20 Mg Tablet) 40 mg PO BID [facility]; Protocol Last Admin: 01/04/23 07:51 Dose: 40 mg Documented By: RAFAEL Labs 12/29/22 20:13 12/29/22 20:13 Labs: Laboratory Results - last 24 hr 01/03/23 01/03/23 01/04/23 16:01 20:24 06:53 POC Glucose 210 H 143 H 165 H 01/04/23 11:10 POC Glucose 190 H Assessment and Plan (1) Hypertension, uncontrolled: Status: Acute (2) ESRD on dialysis: Status: Acute (3) Gastroparesis: Status: Inactive Plan Ms. Taylor has a PMHx of ESRD, T2DM, uncontrolled HTN and noncompliance with diaylsis/medications. She is admitted with HTN emergency. 1. Accelerated hypertension -better blood pressure control on current management, recommend compliance with current medications -continue losartan/ torsemide bid , clonidine 0.3 mg qweekly placed on 01/01, nifedipine 30 mg today, BP remains stable on above medications 2. ESRD on HD -continue hemodialysis , discuss the need of compliance with hemodialysis, patient skip hemodialysis due to pain and not due to transportation issues -follow renals/divalents, being followed by Nephrology 3. Gastroparesis -continue Reglan,dc IV Benadryl 4.DM II -blood sugar elevated recommend to follow diabetic diet , continue lispro correctional scale -adjust as indicated 5.HFrEF--no acute exacerbation, chronically elevated BNP, continue torsemide, and hemodialysis 6. Generalize body ache--chronic, on oxycodone 5 mg q.4 hours by mouth as needed, take 3-4 pills daily Placed on fentanyl patch day 3 today will DC IV Dilaudid and decrease dose of oxycodone to 5 mg Q 8 hours 7 DVT prophylaxis: heparin subQ 8. Left foot wound Left foot plantar callus 3.5x4.0cm with open ulcer 1.0x1.0cm, underwent bedside debridement by General surgery continue dural fiber Ag for moisture management , recommend outpatient follow-up with wound clinic. X-ray of foot showed no acute osteomyelitis 9. Urinary retention likely due to anticholinergic side effect of multiple anti emetics, minimize narcotics will DC Carrero catheter give voiding trial and discharged home Full code Requires ongoing hospitalization for urinary retention, pain medication adjustment and hemodialysis due to noncompliance. Quality Stroke Does the patient have a stroke diagnosis?: No VTE Prior VTE?: No VTE Risk Level:: Medical - moderate - high VTE Device Contraindication: Treatment Not Indicated VTE Drug Contraindication: N/A - Med Ordered
[2023-01-04 16:00] VITALS: BP 128/79; PULSE 92; RESP 18; TEMP 36.2; O2SAT 100
[2023-01-04 16:16] LABS: Glucose, Whole Blood 206 mg/dL (60-115)
[2023-01-04] MEDS: 0.9 % Sodium Chloride Flush 3 ML SYRINGE IVFLUSH (17:07)
--- NOTE | 2023-01-04 17:26 | P.PNNP_ITS ---
Subjective Subjective Date of Service: 01/04/23 Interval history: Seen and examied, events noted Physical Exam 2 Vital Signs: Vital Signs: Last Vital Signs Temp 97.2 F 01/04/23 16:00 Pulse 92 01/04/23 16:00 Resp 18 01/04/23 16:00 BP 128/79 01/04/23 16:00 Pulse Ox 100 01/04/23 16:00 O2 Del Method Room Air 01/04/23 16:00 BMI result Body Mass Index 28.3 Const: Other: Constitutional: Alert, in no distress, overweight. Mental Status: Oriented to person, place and time. Eyes: legally blind Ear, Nose and Throat: Oropharynx clear, mucous membranes moist. Respiratory: Clear to auscultation. No wheezing, rales or rhonchi. Cardiovascular: S1 S2 regular. No murmurs, rubs or gallops. Gastrointestinal: Abdomen soft, non-tender, non-distended. Normal bowel sounds.? Neurologic: Cranial nerves II-XII grossly intact. No focal neurological deficits. Moves all extremities spontaneously.? Skin: No rashes or lesions.? Musculoskeletal: No cyanosis or clubbing. Psychiatric: Normal mood and affect? Objective Data Labs 12/29/22 20:13 12/29/22 20:13 Labs: Laboratory Results - last 24 hr 01/03/23 01/04/23 01/04/23 20:24 06:53 11:10 POC Glucose 143 H 165 H 190 H 01/04/23 16:01 POC Glucose 206 H Procedures Date of Service Date of Service: 01/04/23 Assessment & Plan Assessment and plan (1) Hypertension, uncontrolled: Status: Acute (2) ESRD on dialysis: Status: Acute Plan Ms. Taylor has a PMHx of ESRD, T2DM, uncontrolled HTN and noncompliance with diaylsis/medications. She is admitted with HTN emergency. 1. ESRD Continue mwf dialysis ESRD diet, salt and potassium restricted 2. 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 Progress Note: Quality Stroke Does the patient have a stroke diagnosis?: No
[2023-01-04 20:00] VITALS: BP 130/83; PULSE 89; RESP 17; TEMP 37; O2SAT 100
[2023-01-04 20:24] LABS: Glucose, Whole Blood 140 mg/dL (60-115)
[2023-01-04 23:36] VITALS: BP 146/89; PULSE 91; RESP 17; TEMP 36.2; O2SAT 98
[2023-01-05 04:00] VITALS: RESP 17
[2023-01-05] MEDS: oxyCODONE HCl Immed Release 5 MG TABLET PO (07:21)
[2023-01-05 07:22] LABS: Glucose, Whole Blood 171 mg/dL (60-115)
[2023-01-05 07:26] VITALS: BP 196/109; PULSE 109; RESP 20; TEMP 36.1; O2SAT 99
[2023-01-05] MEDS: Insulin Lispro 100 UNIT/ML 3 ML VIAL SUBCUT ×2 (08:13→17:08)
[2023-01-05] MEDS: NIFEdipine ER 30 MG TAB.ER.24 PO (08:15)
[2023-01-05] MEDS: Torsemide 20 MG TABLET 40 MG PO (08:15)
[2023-01-05] MEDS: Aspirin Enteric Coated 81 MG TABLET.DR PO (08:15)
--- NOTE | 2023-01-05 10:16 | MHC.CM.PN ---
Per ROUNDS discussion, waiting for Patient to void and possible dc to home today. CM will follow.
--- NOTE | 2023-01-05 12:10 | MHC.CM.PN ---
Per [facility]'s request, IVAN has confirmed with Patient's Sister/Josy at [phone] that Josy is willing to continue assisting Patient with wound care at home.IVAN will follow.
[2023-01-05 14:15] VITALS: BP 107/87; PULSE 102; RESP 20; TEMP 36.3; O2SAT 99
[2023-01-05] MEDS: fentaNYL 25 MCG PATCH.TD72 TRANSDERMA (14:22)
--- NOTE | 2023-01-05 16:08 | P.PNIM_ITS ---
Subjective Subjective Date of Service: 01/05/23 Interval History: Taking 2 hemodialysis today, complaining of generalized pain, unable to void, has no urge to urinate, denies burning,no urgency, no nausea tolerating diet, Initially high blood pressure, took medication blood pressure improved. Review of Systems All other system reviewed and negative. Physical Exam 2 Vital Signs: Vital Signs: Last Vital Signs Temp 97.4 F 01/05/23 14:15 Pulse 102 H 01/05/23 14:15 Resp 20 01/05/23 14:15 BP 107/87 01/05/23 14:15 Pulse Ox 99 01/05/23 14:15 O2 Del Method Room Air 01/05/23 14:15 BMI result Body Mass Index 28.3 Const: Other: Gen: Awake alert x3, in no distress Legally blind Hemodialysis catheter right chest wall Neck: supple Lungs: clear to auscultation bilaterally Heart: regular rate and rhythm, no murmurs Abd: soft, non tender, no rebound, tenderness bilateral flank Ext: No leg edema, trans metatarsal amputation left foot, multiple toes amputation right foot,1.0 x 1.0 cm plantar ulcer with surrounding callus and no drainage , see picture in wound care nurse progress note Skin: warm/well-perfused Neuro: alert and oriented x3, no focal findings Psych: appropriate affect Objective Data Active Medications Acetaminophen (Acetaminophen 325 Mg Tablet) 650 mg PO Q6H PRN PRN Reason: Pain, Mild (Pain Scale 1-3) Last Admin: 01/04/23 12:12 Dose: 650 mg Documented By: RAFAEL Al Hydroxide/Mg Hydroxide (Magnesium Hydrox/Alum Hydrox 30 Ml Oral.Susp) 30 ml PO Q4H PRN PRN Reason: Heartburn/Nausea Aspirin (Aspirin Enteric Coated 81 Mg Tablet.) 81 mg PO DAILY [facility] Last Admin: 01/05/23 08:15 Dose: 81 mg Documented By: BEAU Atorvastatin Calcium (Atorvastatin Calcium 40 Mg Tablet) 40 mg PO BEDTIME [facility] Last Admin: 01/04/23 20:57 Dose: Not Given Documented By: ARDEN Non-Admin Reason: Patient Refused Clonidine (Clonidine 0.3 Mg Patch.Tdwk) 0.3 mg TRANSDERMA Fr@0900 [facility]; Protocol Last Admin: 01/05/23 15:21 Dose: Not Given Documented By: BEAU Non-Admin Reason: Physician Held Med Clopidogrel Bisulfate (Clopidogrel Bisulfate 75 Mg Tablet) 75 mg PO DAILY [facility] Last Admin: 01/05/23 08:22 Dose: Not Given Documented By: BEAU Non-Admin Reason: Patient Refused Dextrose (Dextrose 50 % 25 Gm/50 Ml Syringe) 25 gm IVPUSH Q15M PRN; Protocol PRN Reason: per Hypoglycemia Standing Ord. Fentanyl (Fentanyl 25 Mcg Patch.Td72) 25 mcg TRANSDERMA Q72H [facility] Last Admin: 01/05/23 14:22 Dose: 25 mcg Documented By: BEAU Glucose (Glucose Gel 15 Gm Gel..Gram.) 15 gm PO Q15M PRN; Protocol PRN Reason: per Hypoglycemia Standing Ord. Heparin Sodium (Porcine) (Heparin Sodium,Porcine 5,000 Unit/Ml Vial) 5,000 unit SUBCUT Q12H [facility] Last Admin: 01/05/23 14:22 Dose: Not Given Documented By: BEAU Non-Admin Reason: Patient Refused Insulin Human Lispro (Insulin Lispro 100 Unit/Ml 3 Ml Vial) 0 unit SUBCUT QIDACHS [facility]; Protocol Last Admin: 01/05/23 12:28 Dose: Not Given Documented By: BEAU Non-Admin Reason: Off unit: Dialysis Losartan Potassium (Losartan Potassium 50 Mg Tablet) 100 mg PO DAILY [facility]; Protocol Last Admin: 01/05/23 08:22 Dose: Not Given Documented By: BEAU Non-Admin Reason: Patient Refused Magnesium Hydroxide (Milk Of Magnesia 30 Ml Oral.Susp) 30 ml PO DAILY PRN PRN Reason: Constipation Melatonin (Melatonin 3 Mg Tablet) 6 mg PO BEDTIME PRN PRN Reason: Insomnia Metoclopramide HCl (Metoclopramide Hcl 5 Mg Tablet) 5 mg PO TIDAC [facility] Last Admin: 01/05/23 12:28 Dose: Not Given Documented By: BEAU Non-Admin Reason: Off unit: Dialysis Nifedipine (Nifedipine Er 30 Mg Tab.Er.24) 30 mg PO DAILY [facility]; Protocol Last Admin: 01/05/23 08:15 Dose: 30 mg Documented By: BEAU Omeprazole (Omeprazole 40 Mg Capsule.Dr) 40 mg PO DAILY@0630 [facility] Last Admin: 01/05/23 07:21 Dose: Not Given Documented By: ARDEN Non-Admin Reason: Patient Refused Ondansetron HCl (Ondansetron Hcl 4 Mg/2 Ml Vial) 4 mg IVPUSH Q8H PRN PRN Reason: Nausea and Vomiting Last Admin: 01/01/23 10:58 Dose: 4 mg Documented By: MALLIKA Comments: given early per darian Fernandez Oxycodone HCl (Oxycodone Hcl Immed Release 5 Mg Tablet) 5 mg PO Q8H PRN PRN Reason: severe pain Last Admin: 01/05/23 07:21 Dose: 5 mg Documented By: ARDEN Sodium Chloride (0.9 % Sodium Chloride Flush 3 Ml Syringe) 3 ml IVFLUSH QSHIFT [facility] Last Admin: 01/05/23 11:20 Dose: Not Given Documented By: BEAU Non-Admin Reason: Previously Administered Torsemide (Torsemide 20 Mg Tablet) 40 mg PO BID [facility]; Protocol Last Admin: 01/05/23 08:15 Dose: 40 mg Documented By: BEAU Labs 12/29/22 20:13 12/29/22 20:13 Labs: Laboratory Results - last 24 hr 01/04/23 01/04/23 01/05/23 16:01 20:20 07:11 POC Glucose 206 H 140 H 171 H Assessment and Plan (1) Hypertension, uncontrolled: Status: Acute (2) ESRD on dialysis: Status: Acute (3) Gastroparesis: Status: Inactive Plan Ms. Taylor has a PMHx of ESRD, T2DM, uncontrolled HTN and noncompliance with diaylsis/medications. She is admitted with HTN emergency. 1. Accelerated hypertension -better blood pressure control on current management, recommend compliance with current medications -continue losartan/ torsemide bid , nifedipine 30 mg today, BP remains stable on above medications,did not recieve clonidine patch therefore will hold it. 2. ESRD on HD -continue hemodialysis , discuss the need of compliance with hemodialysis, patient skip hemodialysis due to pain and not due to transportation issues -follow renals/divalents, being followed by Nephrology 3. Gastroparesis -continue Reglan,susan IV Benadryl 4.DM II -blood sugar elevated recommend to follow diabetic diet , continue lispro correctional scale -adjust as indicated 5.HFrEF--no acute exacerbation, chronically elevated BNP, continue torsemide, and hemodialysis 6. Generalize body ache--chronic, on oxycodone 5 mg q.4 hours by mouth as needed, take 3-4 pills daily Placed on fentanyl patch day 3 today will DC IV Dilaudid and decrease dose of oxycodone to 5 mg Q 8 hours 7 DVT prophylaxis: heparin subQ 8. Left foot wound Left foot plantar callus 3.5x4.0cm with open ulcer 1.0x1.0cm, underwent bedside debridement by General surgery continue dural fiber Ag for moisture management , recommend outpatient follow-up with wound clinic. X-ray of foot showed no acute osteomyelitis 9. Urinary retention likely due to anticholinergic side effect of multiple anti emetics, minimize narcotics, status post Carrero removed due to discomfort encouraged to void monitor bladder scans Q shift. Full code Requires ongoing hospitalization for urinary retention, pain medication adjustment and hemodialysis due to noncompliance. Quality Stroke Does the patient have a stroke diagnosis?: No VTE Prior VTE?: No VTE Risk Level:: Medical - moderate - high VTE Device Contraindication: Treatment Not Indicated VTE Drug Contraindication: N/A - Med Ordered
[2023-01-05 16:37] LABS: Glucose, Whole Blood 238 mg/dL (60-115)
[2023-01-05] MEDS: 0.9 % Sodium Chloride Flush 3 ML SYRINGE IVFLUSH (17:10)
--- NOTE | 2023-01-05 19:05 | PC.NURSE ---
Patient unable to void, came back from dialysis 1300 - refused to get oob to the commode stating she does not feel the urge to void. Bladder scan done at 1500 - for 636ml - patient still stating no urge to void and no discomfort. Per MD wait and encourage patient to get up to the commode which patient again refused. Another bladder scan at 1830 for 797ml - patient still refusing to get up to use commode stating she has no urge to void and no discomfort. Findings reported to provider. Provider advice to encourage patient to get out of bed and wait with cath until next shift. Reported to night nurse -
[2023-01-05 21:05] LABS: Glucose, Whole Blood 129 mg/dL (60-115)
[2023-01-05 21:47] VITALS: BP 120/79; PULSE 68; RESP 16; TEMP 36.7; O2SAT 97
[2023-01-06] VITALS: BP 150/92; PULSE 96; RESP 20; TEMP 36.1; O2SAT 98
--- NOTE | 2023-01-06 02:19 | P.PNNP_ITS ---
Subjective Subjective Date of Service: 01/05/23 Interval history: Sen and examined Physical Exam 2 Vital Signs: Vital Signs: Last Vital Signs Temp 96.9 F 01/06/23 00:00 Pulse 96 01/06/23 00:00 Resp 20 01/06/23 00:00 BP 150/92 H 01/06/23 00:00 Pulse Ox 98 01/06/23 00:00 O2 Del Method Room Air 01/06/23 00:00 BMI result Body Mass Index 28.3 Const: Other: Constitutional: Alert, in no distress, overweight. Mental Status: Oriented to person, place and time. Eyes: legally blind Ear, Nose and Throat: Oropharynx clear, mucous membranes moist. Respiratory: Clear to auscultation. No wheezing, rales or rhonchi. Cardiovascular: S1 S2 regular. No murmurs, rubs or gallops. Gastrointestinal: Abdomen soft, non-tender, non-distended. Normal bowel sounds.? Neurologic: Cranial nerves II-XII grossly intact. No focal neurological deficits. Moves all extremities spontaneously.? Skin: No rashes or lesions.? Musculoskeletal: No cyanosis or clubbing. Psychiatric: Normal mood and affect? Objective Data Labs 12/29/22 20:13 12/29/22 20:13 Labs: Laboratory Results - last 24 hr 01/05/23 01/05/23 01/05/23 07:11 16:30 20:23 POC Glucose 171 H 238 H 129 H Procedures Date of Service Date of Service: 01/06/23 Assessment & Plan Assessment and plan (1) Hypertension, uncontrolled: Status: Acute (2) ESRD on dialysis: Status: Acute Plan Ms. Taylor has a PMHx of ESRD, T2DM, uncontrolled HTN and noncompliance with diaylsis/medications. She is admitted with HTN emergency. 1. ESRD Continue mwf dialysis ESRD diet, salt and potassium restricted 2. 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 Progress Note: Quality Stroke Does the patient have a stroke diagnosis?: No
[2023-01-06 03:32] VITALS: BP 127/80; PULSE 98; RESP 20; TEMP 36.1; O2SAT 98
[2023-01-06 07:15] VITALS: BP 135/74; PULSE 98; RESP 18; TEMP 36.4; O2SAT 99
[2023-01-06 07:28] LABS: Glucose, Whole Blood 101 mg/dL (60-115)
[2023-01-06 11:13] VITALS: BP 155/90; PULSE 107; RESP 19; TEMP 36.4; O2SAT 99
[2023-01-06 11:19] LABS: Glucose, Whole Blood 139 mg/dL (60-115)
--- NOTE | 2023-01-06 12:09 | HO.PM.IMPN ---
Subjective Subjective Date of Service: 01/06/23 Interval History: Complained of nausea this morning noted to have bladder scan above 800, initially refuse to use commode but later agreed and voided 800 mL, no overnight events slept well, tolerating diet, blood pressure stable finger oximetry 99 on room air. Review of Systems All other system reviewed and negative. Physical Exam Vital Signs: Vital Signs: Last Vital Signs Temp 97.5 F 01/06/23 11:13 Pulse 107 H 01/06/23 11:13 Resp 19 01/06/23 11:13 BP 155/90 H 01/06/23 11:13 Pulse Ox 99 01/06/23 11:13 O2 Del Method Room Air 01/06/23 11:13 BMI result Body Mass Index 28.3 Const: Other: Gen: Awake alert x3, in no distress Legally blind Hemodialysis catheter right chest wall Neck: supple Lungs: clear to auscultation bilaterally Heart: regular rate and rhythm, no murmurs Abd: soft, non tender, no rebound, tenderness bilateral flank Ext: No leg edema, trans metatarsal amputation left foot, multiple toes amputation right foot,1.0 x 1.0 cm plantar ulcer no drainage. Skin: warm/well-perfused Neuro: alert and oriented x3, no focal findings Psych: appropriate affect Objective Data Active Medications Acetaminophen (Acetaminophen 325 Mg Tablet) 650 mg PO Q6H PRN PRN Reason: Pain, Mild (Pain Scale 1-3) Last Admin: 01/04/23 12:12 Dose: 650 mg Documented By: RAFAEL Al Hydroxide/Mg Hydroxide (Magnesium Hydrox/Alum Hydrox 30 Ml Oral.Susp) 30 ml PO Q4H PRN PRN Reason: Heartburn/Nausea Aspirin (Aspirin Enteric Coated 81 Mg Tablet.Dr) 81 mg PO DAILY [facility] Last Admin: 01/06/23 09:32 Dose: Not Given Documented By: BEAU Non-Admin Reason: Patient Condition Contraindication Atorvastatin Calcium (Atorvastatin Calcium 40 Mg Tablet) 40 mg PO BEDTIME [facility] Last Admin: 01/05/23 21:30 Dose: Not Given Documented By: ARDEN Non-Admin Reason: Patient Refused Clonidine (Clonidine 0.3 Mg Patch.Tdwk) 0.3 mg TRANSDERMA Fr@0900 [facility]; Protocol Last Admin: 01/05/23 15:21 Dose: Not Given Documented By: BEAU Non-Admin Reason: Physician Held Med Clopidogrel Bisulfate (Clopidogrel Bisulfate 75 Mg Tablet) 75 mg PO DAILY [facility] Last Admin: 01/06/23 09:33 Dose: Not Given Documented By: BEAU Non-Admin Reason: Patient Condition Contraindication Dextrose (Dextrose 50 % 25 Gm/50 Ml Syringe) 25 gm IVPUSH Q15M PRN; Protocol PRN Reason: per Hypoglycemia Standing Ord. Fentanyl (Fentanyl 25 Mcg Patch.Td72) 25 mcg TRANSDERMA Q72H [facility] Last Admin: 01/05/23 14:22 Dose: 25 mcg Documented By: BEAU Glucose (Glucose Gel 15 Gm Gel..Gram.) 15 gm PO Q15M PRN; Protocol PRN Reason: per Hypoglycemia Standing Ord. Heparin Sodium (Porcine) (Heparin Sodium,Porcine 5,000 Unit/Ml Vial) 5,000 unit SUBCUT Q12H [facility] Last Admin: 01/06/23 11:40 Dose: Not Given Documented By: BEAU Non-Admin Reason: Patient Refused Insulin Human Lispro (Insulin Lispro 100 Unit/Ml 3 Ml Vial) 0 unit SUBCUT QIDACHS [facility]; Protocol Last Admin: 01/06/23 11:27 Dose: Not Given Documented By: BEAU Non-Admin Reason: No Insulin Coverage Losartan Potassium (Losartan Potassium 50 Mg Tablet) 100 mg PO DAILY [facility]; Protocol Last Admin: 01/06/23 09:33 Dose: Not Given Documented By: BEAU Non-Admin Reason: Patient Condition Contraindication Magnesium Hydroxide (Milk Of Magnesia 30 Ml Oral.Susp) 30 ml PO DAILY PRN PRN Reason: Constipation Melatonin (Melatonin 3 Mg Tablet) 6 mg PO BEDTIME PRN PRN Reason: Insomnia Metoclopramide HCl (Metoclopramide Hcl 5 Mg Tablet) 5 mg PO TIDAC [facility] Last Admin: 01/06/23 11:27 Dose: Not Given Documented By: BEAU Non-Admin Reason: Patient Refused Nifedipine (Nifedipine Er 30 Mg Tab.Er.24) 30 mg PO DAILY [facility]; Protocol Last Admin: 01/06/23 09:33 Dose: Not Given Documented By: BEAU Non-Admin Reason: Patient Condition Contraindication Omeprazole (Omeprazole 40 Mg Deep.) 40 mg PO DAILY@0630 [facility] Last Admin: 01/06/23 07:34 Dose: Not Given Documented By: BEAU Non-Admin Reason: Patient Refused Ondansetron HCl (Ondansetron Hcl 4 Mg/2 Ml Vial) 4 mg IVPUSH Q8H PRN PRN Reason: Nausea and Vomiting Last Admin: 01/01/23 10:58 Dose: 4 mg Documented By: MALLIKA Comments: given early per darian Fernandez Oxycodone HCl (Oxycodone Hcl Immed Release 5 Mg Tablet) 5 mg PO Q8H PRN PRN Reason: severe pain Last Admin: 01/05/23 07:21 Dose: 5 mg Documented By: ARDEN Sodium Chloride (0.9 % Sodium Chloride Flush 3 Ml Syringe) 3 ml IVFLUSH QSHIFT [facility] Last Admin: 01/06/23 11:27 Dose: Not Given Documented By: BEAU Non-Admin Reason: Patient Refused Torsemide (Torsemide 20 Mg Tablet) 40 mg PO BID [facility]; Protocol Last Admin: 01/06/23 09:33 Dose: Not Given Documented By: BEAU Non-Admin Reason: Patient Condition Contraindication Labs 12/29/22 20:13 12/29/22 20:13 Labs: Laboratory Results - last 24 hr 01/05/23 01/05/23 01/06/23 16:30 20:23 07:18 POC Glucose 238 H 129 H 101 01/06/23 10:59 POC Glucose 139 H Assessment and Plan (1) Hypertension, uncontrolled: Status: Acute (2) ESRD on dialysis: Status: Acute (3) Gastroparesis: Status: Inactive Plan Ms. Taylor has a PMHx of ESRD, T2DM, uncontrolled HTN and noncompliance with diaylsis/medications. She is admitted with HTN emergency. 1. Accelerated hypertension -better blood pressure control on current management, recommend compliance with current medications -patient feels she is on too many medications for blood pressure, will continue losartan/ torsemide bid , dc nifedipine 30 mg today, and place on clonidine patch starting tomorrow 2. ESRD on HD -continue hemodialysis , discuss the need of compliance with hemodialysis, patient skip hemodialysis due to pain and not due to transportation issues -follow renals/divalents, being followed by Nephrology 3. Gastroparesis -continue Reglan,dc IV Benadryl and minimize use of IV antiemetics due to side effects of urinary retention 4.DM II -blood sugar elevated recommend to follow diabetic diet , continue lispro correctional scale -adjust as indicated 5.HFrEF--no acute exacerbation, chronically elevated BNP, continue torsemide, and hemodialysis 6. Generalize body ache--chronic, on oxycodone 5 mg q.4 hours by mouth as needed, take 3-4 pills daily Placed on fentanyl patch day 3 today ,will DC oxycodone and recommend Tylenol only 7 DVT prophylaxis: heparin subQ 8. Left foot wound Left foot plantar callus 3.5x4.0cm with open ulcer 1.0x1.0cm, underwent bedside debridement by General surgery callus removed continue dural fiber Ag for moisture management , recommend outpatient follow-up with wound clinic. X-ray of foot showed no acute osteomyelitis 9. Urinary retention likely due to anticholinergic side effect of multiple anti emetics, minimize narcotics, status post Carrero removed due to discomfort Voided 800 mL today but as per patient she voided because she pressed her abdomen to void, but had no urge, wishes to be followed closely with voiding trials Full code Requires ongoing hospitalization for urinary retention, pain medication adjustment and hemodialysis due to noncompliance. Quality Stroke Does the patient have a stroke diagnosis?: No VTE Prior VTE?: No VTE Risk Level:: Medical - moderate - high VTE Device Contraindication: Treatment Not Indicated VTE Drug Contraindication: N/A - Med Ordered
[2023-01-06 15:16] VITALS: BP 163/89; PULSE 95; RESP 18; TEMP 37.2; O2SAT 98
[2023-01-06 16:15] LABS: Glucose, Whole Blood 244 mg/dL (60-115)
[2023-01-06 20:00] VITALS: BP 159/87; PULSE 94; RESP 18; TEMP 36.7; O2SAT 100
[2023-01-06 21:23] LABS: Glucose, Whole Blood 172 mg/dL (60-115)
--- NOTE | 2023-01-06 22:31 | P.PNNP_ITS ---
Subjective Subjective Date of Service: 01/06/23 Interval history: Seen and examiend, events noted c/o nauseathis am Physical Exam 2 Vital Signs: Vital Signs: Last Vital Signs Temp 98.0 F 01/06/23 20:00 Pulse 94 01/06/23 20:00 Resp 18 01/06/23 20:00 BP 159/87 H 01/06/23 20:00 Pulse Ox 100 01/06/23 20:00 O2 Del Method Room Air 01/06/23 20:00 BMI result Body Mass Index 28.3 Const: Other: Constitutional: Alert, in no distress, overweight. Mental Status: Oriented to person, place and time. Eyes: legally blind Ear, Nose and Throat: Oropharynx clear, mucous membranes moist. Respiratory: Clear to auscultation. No wheezing, rales or rhonchi. Cardiovascular: S1 S2 regular. No murmurs, rubs or gallops. Gastrointestinal: Abdomen soft, non-tender, non-distended. Normal bowel sounds.? Neurologic: Cranial nerves II-XII grossly intact. No focal neurological deficits. Moves all extremities spontaneously.? Skin: No rashes or lesions.? Musculoskeletal: No cyanosis or clubbing. Psychiatric: Normal mood and affect? Objective Data Labs 12/29/22 20:13 12/29/22 20:13 Labs: Laboratory Results - last 24 hr 01/06/23 01/06/23 01/06/23 07:18 10:59 16:11 POC Glucose 101 139 H 244 H 01/06/23 21:19 POC Glucose 172 H Procedures Date of Service Date of Service: 01/06/23 Assessment & Plan Assessment and plan (1) Hypertension, uncontrolled: Status: Acute (2) ESRD on dialysis: Status: Acute Plan Ms. Taylor has a PMHx of ESRD, T2DM, uncontrolled HTN and noncompliance with diaylsis/medications. She is admitted with HTN emergency. 1. ESRD Continue mwf dialysis ESRD diet, salt and potassium restricted 2. 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 Nausea: not d/t uremia; tx as noted REC: cont HD mwf; meds as noted; w/u GI sxms Time Spent With Patient Time: Total time managing care of this patient today ____ minutes. Progress Note: Quality Stroke Does the patient have a stroke diagnosis?: No
[2023-01-07] VITALS: BP 145/84; PULSE 96; RESP 20; TEMP 36.2; O2SAT 100
[2023-01-07 03:24] VITALS: BP 110/76; PULSE 99; RESP 20; TEMP 36.2; O2SAT 98
[2023-01-07 07:45] VITALS: BP 170/92; PULSE 98; RESP 16; TEMP 36.6; O2SAT 98
[2023-01-07 08:05] LABS: Glucose, Whole Blood 108 mg/dL (60-115)
[2023-01-07] MEDS: cloNIDine 0.3 MG PATCH.TDWK TRANSDERMA (10:26)
[2023-01-07] MEDS: 0.9 % Sodium Chloride Flush 3 ML SYRINGE IVFLUSH (10:29)
[2023-01-07 11:14] VITALS: BP 160/90; PULSE 104; RESP 20; TEMP 36.6; O2SAT 99
[2023-01-07 11:42] LABS: Glucose, Whole Blood 140 mg/dL (60-115)
--- NOTE | 2023-01-07 14:41 | PM.DS ---
DS: Providers Provider Date of Service: 01/07/23 Date of admission: 12/29/22 23:37 Primary care physician: Abdon Beard MD Consults: 12/30/22 06:48 Consult to Wound Care Routine Reason for consultation: Wound to R foot ( sole) 12/30/22 08:41 Consult to Nephrology Routine Consulting Provider: [facility] 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 Hospital course: Ms. Taylor has a PMHx of ESRD, T2DM, uncontrolled HTN and noncompliance with diaylsis/medications. She is admitted with HTN emergency. 1. Accelerated hypertension, admitted to intermediate care unit due to noncompliance with medication therefore blood pressure medication adjusted patient placed on clonidine #3 Patch and continued on losartan 25 mg and torsemide blood pressure remains stable recommend outpatient follow-up PCP and Nephrology. 2. ESRD on HD recommend compliance with hemodialysis patient's gives dialysis due to pain and not due to transportation therefore patient placed on fentanyl patch 25 mcg Q 72 hours Is spoke with patient's sister who is the care provider and explained to her the importance of continued hemodialysis and to avoid other narcotics 3. Gastroparesis recommend to take all meals while sitting in keep head of the bed elevated after meals avoid Reglan due to side effect of urinary retention Avoid narcotics, started on Prilosec. 4.DM II continue diabetic diet and home medications blood sugars stable. 5.HFrEF--no acute exacerbation, chronically elevated BNP, continue torsemide, and hemodialysis . 6. Generalize body ache--chronic, on oxycodone 5 mg q.4 hours as needed, take 3-4 pills daily, she has been transition to fentanyl patch recommend to stop using oxycodone. 7 Left foot wound Left foot plantar callus 3.5x4.0cm with open ulcer 1.0x1.0cm, underwent bedside debridement by General surgery callus removed,continue dural fiber Ag for moisture management , recommend outpatient follow-up with wound clinic, X-ray of foot showed no acute osteomyelitis 9. Urinary retention likely due to anticholinergic side effect of multiple anti emetics, minimize narcotics, status post Carrero removed due to discomfort , now voiding without difficulty Recommend to avoid scheduled antiemetics. Time Attestation Discharge coordination time: Greater than 30 minutes Quality: Safe Use of Opioids Does Pt have an Active Cancer Diagnosis on the Problem List?: No Quality: Stroke Does the patient have a stroke diagnosis?: No Physical Exam Vital Signs: Vital Signs: Last Vital Signs Temp 97.9 F 01/07/23 11:14 Pulse 104 H 01/07/23 11:14 Resp 20 01/07/23 11:14 BP 160/90 H 01/07/23 11:14 Pulse Ox 99 01/07/23 11:14 O2 Del Method Room Air 01/07/23 11:14 BMI result Body Mass Index 28.3 Const: Other: Gen: Awake alert x3, in no distress Legally blind Hemodialysis catheter right chest wall, no surrounding redness, no drainage Neck: supple Lungs: clear to auscultation bilaterally Heart: regular rate and rhythm, no murmurs Abd: soft, non tender, no rebound, tenderness bilateral flank Ext: No leg edema, trans metatarsal amputation left foot, multiple toes amputation right foot,1.0 x 1.0 cm plantar ulcer no drainage. Skin: warm/well-perfused Neuro: alert and oriented x3, no focal findings Psych: appropriate affect DS: Data Data Completed and Pending Completed studies during hospitalization [Text1]: Procedures Detachment at Right Foot, Partial 1st Ray, Open Approach (03/01/20) Detachment at Right Foot, Partial 2nd Ray, Open Approach (03/01/20) Detachment at Right Foot, Partial 3rd Ray, Open Approach (03/01/20) Detachment at Right Foot, Partial 4th Ray, Open Approach (03/01/20) Detachment at Right Foot, Partial 5th Ray, Open Approach (03/01/20) Drainage of Right Pleural Cavity, Percutaneous Approach (01/14/21) Excision of Left Foot Skin, External Approach (10/22/22) Excision of Stomach, Pylorus, Via Natural or Artificial Opening Endoscopic, Diagnostic (08/27/22) Fluoroscopy of Superior Vena Cava, Guidance (08/14/22) Insertion of Infusion Device into Right Atrium, Percutaneous Approach (08/14/22) Insertion of Infusion Device into Superior Vena Cava, Percutaneous Approach (01/14/21) Insertion of Tunneled Vascular Access Device into Chest Subcutaneous Tissue and Fascia, Percutaneous Approach (08/14/22) Performance of Urinary Filtration, Intermittent, Less than 6 Hours Per Day (12/17/22) Removal of Infusion Device from Great Vessel, External Approach (01/14/21) Transfusion of Nonautologous Red Blood Cells into Peripheral Vein, Percutaneous Approach (04/22/22) Labs on day of discharge: Laboratory Results - last 24 hr 01/06/23 01/06/23 01/07/23 16:11 21:19 07:46 POC Glucose 244 H 172 H 108 01/07/23 11:16 POC Glucose 140 H Discharge Plan Discharge Anticipated Discharge Date/Time: 01/07/23 14:40 Patient Disposition: Home, Self-Care Discharge Diagnosis: Accelerated hypertension Gastroparesis Urinary retention Referrals: [facility] [Physician] - 1 Week Discharge Medications: New omeprazole 20 mg Capsule,Delayed Release(Dr/Ec) 20 mg PO DAILY@0630 Qty: 30 0RF clonidine [[id number]] 0.3 mg/24 hr Patch Weekly 0.3 mg transdermal Fr@0900 Qty: 4 0RF Protocol: Hold for SBP< HOLD for SBP < : 90 fentanyl 25 mcg/hr Patch 72 Hour 25 mcg transdermal Q72H Qty: 10 0RF Rx Instructions: Partial Fill upon patient request. Continued atorvastatin 40 mg Tablet 40 mg PO BEDTIME Qty: 90 0RF clopidogrel 75 mg Tablet 75 mg PO DAILY Qty: 90 0RF aspirin 81 mg Tablet,Delayed Release (Dr/Ec) 81 mg PO DAILY Qty: 90 0RF losartan 25 mg Tablet 25 mg PO DAILY Qty: 90 0RF Protocol: Hold for SBP< HOLD for SBP < : 90 omeprazole 40 mg Capsule,Delayed Release(Dr/Ec) 40 mg PO DAILY@0630 Qty: 90 0RF torsemide 20 mg tablet 40 mg PO BID Qty: 180 0RF glipizide 2.5 mg tablet extended release 24hr 2.5 mg PO DAILY Qty: 90 0RF Discontinued oxycodone 5 mg tablet 5 mg PO Q6H PRN (Reason: severe pain) Qty: 20 0RF metoclopramide HCl 5 mg Tablet 5 mg PO TIDAC 30 Days Qty: 90 0RF clonidine 0.1 mg/24 hr Patch Weekly 0.1 mg transdermal Th@0900 Qty: 4 0RF Protocol: Hold for SBP< HOLD for SBP < : 90 Discharge Orders: Discharge Order (Routine); Ordered 01/07/23 Ordered By: Scarlet Arora Diet: Diabetic diet Activity on Discharge: As tolerated Stand Alone Forms: Patient Portal Discharge page Care Plan Goals: Left plantar ulcer daily dressing changes of silver alginate to ulcer base followed by fluffs and kerlix wrap. Wound care follow-up Eat all meals sitting up do not lie down 30 minutes after each meal Take all medications as prescribed Use fentanyl patch 25 mcg every 3 days Avoid oxycodone unless severe pain Use Reglan for nausea and vomiting as needed Strongly recommend hemodialysis 3 times a week Health Concerns: Diabetes Gastroparesis Noncompliance with hemodialysis Chronic pain Plan of Treatment: Outpatient follow-up with primary care physician and Nephrology continue hemodialysis Follow-up and wound care for left foot ulcer Assessment: As above
== END 2023-01-07 15:07 | disposition home or self-care (01) | DRG 304 ==
LOC: HO.ED 22:18 → HO.EDOVER 23:58 → HO.IMC 12-30 00:55
PROVIDERS: Hospitalist; Admitting Provider Internal Medicine; Emergency Provider Emergency Medicine; PCP Internal Medicine; Visit Provider Hospitalist
DX: I16.1 Hypertensive emergency (principal); N18.6 End stage renal disease; I50.22 Chronic systolic (congestive) heart failure; L97.429 Non-pressure chronic ulcer of left heel and midfoot with unspecified severity; I13.2 Hypertensive heart and chronic kidney disease with heart failure and with stage 5 chronic kidney disease, or end stage renal disease; E11.43 Type 2 diabetes mellitus with diabetic autonomic (poly)neuropathy; K31.84 Gastroparesis; E11.22 Type 2 diabetes mellitus with diabetic chronic kidney disease; E11.621 Type 2 diabetes mellitus with foot ulcer; D63.1 Anemia in chronic kidney disease; R33.0 Drug induced retention of urine; Z99.2 Dependence on renal dialysis; Z20.822 Contact with and (suspected) exposure to COVID-19; Z91.148 Patient's other noncompliance with medication regimen for other reason; Z91.158 Patient's noncompliance with renal dialysis for other reason; Z79.82 Long term (current) use of aspirin; Z79.84 Long term (current) use of oral hypoglycemic drugs; Z79.899 Other long term (current) drug therapy
CPT/HCPCS: 0241U; 70450; 73630; 80048; 80076; 82947; 83690; 85025; 90999; 99285; C1758; J0360; J0885; J1170; J1200; J1756; J2405; J2765

== ENCOUNTER → 2022-12-29 23:37 | Outpatient (BNV) | payer OTHER, SELFPAY | PROVIDERS: Admitting Provider Internal Medicine; Emergency Provider Emergency Medicine; PCP Internal Medicine; Visit Provider Surgery | DX: N18.6 End stage renal disease (principal); Z99.2 Dependence on renal dialysis; E11.621 Type 2 diabetes mellitus with foot ulcer; L97.521 Non-pressure chronic ulcer of other part of left foot limited to breakdown of skin | CPT/HCPCS: 11055; 97597; 99222; 99232 ==

== ENCOUNTER → 2022-12-29 23:37 | Outpatient (BNV) | payer OTHER, SELFPAY | PROVIDERS: Admitting Provider Internal Medicine; Emergency Provider Emergency Medicine; Visit Provider Hospitalist | DX: I10 Essential (primary) hypertension (principal) | CPT/HCPCS: 99223; 99233; 99239 ==

== ENCOUNTER 2023-01-20 18:34 | Inpatient (IN) | payer OTHER, SELFPAY ==
--- NOTE | 2023-01-20 | ECG_ITS ---
Test Reason : CHEST PAIN Blood Pressure : / mmHG Vent. Rate : 114 BPM Atrial Rate : 114 BPM P-R Int : 152 ms QRS Dur : 142 ms QT Int : 368 ms P-R-T Axes : 070 -10 054 degrees QTc Int : 507 ms Sinus tachycardia Possible Left atrial enlargement Right bundle branch block T wave abnormality, consider lateral ischemia Abnormal ECG When compared with ECG of 17-DEC-2022 14:16, T wave inversion now evident in Anterolateral leads Lateral leads Referred By: Generic ED Physician Electronically Signed By:JEREMÍAS SANDOVAL MD
--- NOTE | ~2023-01-20 | MR_ITS ---
EXAMINATION: MR BRAIN WITHOUT CONTRAST CLINICAL INFORMATION: TIA COMPARISON: CT head 01/24/2023 and MR brain 04/01/2022 TECHNIQUE: MRI of the brain was obtained using routine sequences without contrast. FINDINGS: No acute infarct. No acute intracranial hemorrhage or extra-axial fluid collection. Stable caliber of the ventricular system. Stable patchy T2 FLAIR hyperintense foci in the subcortical and periventricular white matter and camilla, nonspecific but presumably mild chronic microangiopathy. No mass lesion, mass effect, or herniation pattern. Normal intracranial arterial and dural venous sinus flow voids. Normal appearance of the midline structures. Redemonstrated sequela of right greater than left subretinal hemorrhage, now with diffuse vitreous FLAIR hyperintensity of the right globe. The paranasal sinuses and mastoids are well aerated. Normal marrow signal. MR/MR head/brain wo con IMPRESSION: No acute intracranial abnormality. Stable white matter disease, presumably mild chronic microangiopathy. Sequela of bilateral subretinal hemorrhage as above.
--- NOTE | ~2023-01-20 | CT_ITS ---
EXAMINATION: CT HEAD WITHOUT CONTRAST CLINICAL INFORMATION: Left-sided numbness. COMPARISON: CT head from 12/29/2022. TECHNIQUE: Contiguous axial imaging was performed from the skull base to vertex without intravenous administration of contrast. This CT examination was performed using dose optimization techniques as appropriate, variously including the following: *Automated exposure control. *Adjustment of mA and/or kV according to patient size (this includes techniques or standardized protocols for targeted exams where dose is matched to indication/reason for exam; i.e. extremities or head). *Use of iterative reconstruction technique. DLP: 816 mGy-cm FINDINGS: There is no evidence of acute intracranial hemorrhage or edematous territorial infarction. Ventura-white matter differentiation is preserved. There is no abnormal attenuation within the brain parenchyma. The ventricles are normal in morphology and size. No evidence for obstructive hydrocephalus. No abnormal mass effect or midline shift. No extra-axial fluid collections. No acute soft tissue or osseous abnormalities. Congenital nonunion of the posterior arch of C1. Mild mucosal thickening of the paranasal sinuses. The mastoid air cells and middle ear cavities are clear. Redemonstrated with a hyperattenuating material within the right greater than left posterior aspects of the globes. CT/CT head for stroke IMPRESSION: 1. No evidence of acute intracranial hemorrhage or edematous territorial infarction. 2. Redemonstrated sequela of subretinal hemorrhage within the right worse than left globes.
--- NOTE | ~2023-01-20 | NM_ITS ---
Lexiscan Myocardial perfusion study Indication: Congestive heart failure, assess for coronary disease and ischemia Technique: The patient was brought in for a Lexiscan perfusion study on 01/24/2023 and was injected 0.4 mg of Lexiscan intravenously. Within a minute of this injection 25 mCi of sestamibi was given intravenously. Images were obtained using the SPECT gamma camera interlaced with the gating device. Images were obtained in supine position. Resting perfusion study was performed on 01/25/2023. Patient was administered 25 mCi of sestamibi intravenously at rest. Images were then obtained in supine position. Images were processed with the software and compared side to side in short axis, horizontal long axis and vertical long axis views. Total DLP 132mGy-cm. Findings: Raw acquisition reviewed. Arms by the patient's side. The stress perfusion study showed mildly diminished tracer uptake in the mid anteroseptal wall. This is also seen with CT attenuation correction but is more prominent. Could all be artifactual. There is also reduced tracer uptake in the basal part of inferior wall. This improves with CT attenuation correction is a distal of diaphragmatic attenuation artifact The gated study shows diminished LV systolic function with calculated LVEF of 39%. LV cavity is normal in size. The gated study shows normal wall thickening and contraction of segments. Resting study shows no significant perfusion abnormality. Gating at rest reveals normal wall motion with ejection fraction at 38%. The findings are consistent with small reversible mid anteroseptal defect, that could indicate ischemia. Mild reversible basal inferior defect that could be from diaphragmatic attenuation artifact. NM/NM tanner perf SPECT rest & str Impression: 1. Myocardial perfusion imaging study shows mild ischemia versus artifact in the mid anteroseptal wall. Likely diaphragmatic attenuation artifact causing reversible basal inferior wall defect. 2. Gated LVEF is 39% during stress and 38% during rest. 3. Transient ischemic dilatation not present. EKG component of the test reported separately.
--- NOTE | ~2023-01-20 | XR_ITS ---
EXAMINATION: XR CHEST CLINICAL INFORMATION: Chest pain COMPARISON: 12/17/2022 TECHNIQUE: Frontal view of the chest was obtained. FINDINGS: There is stable position of jugular dialysis catheter. Lungs are clear but cardiomediastinal silhouette is prominent consistent with cardiomegaly most likely due to pleural effusion. XR/XR chest 1V IMPRESSION: Cardiomegaly/pleural effusion
[2023-01-20 18:48] VITALS: BP 226/120; PULSE 96; O2SAT 99; BMI 27.8
[2023-01-20 18:51] VITALS: BP 225/134; PULSE 95; RESP 18; TEMP 36.4; O2SAT 100
--- NOTE | 2023-01-20 19:00 | PC.NURSE ---
a&ox3, hypertensive, tachypneic, nsr/sinus tachy on engraver tire mold. pt c/o n/v/nonradiating sternal chest pain that started around midnight. pt tearful d/t pain and discomfort. pt missed dialysis twice d/t dialysis being closed on . missed sunday d/t not feeling well. ekg performed. labs drawn and sent to lab. 22gIVplaced in left hand by EMS. respirations even and unlabored. call moore placed within reach.
[2023-01-20 19:04] LABS: Basophils Percent Auto 0.2 % (0-2); Eosinophils Absolute Auto 0.1 X10*3/uL (0.0-0.4); Eosinophils Percent Auto 0.9 % (0-4); Hematocrit 31.4 % (37.0-47.0); Hemoglobin 10.4 g/dl (12.0-16.0); Imm Gran Abs Auto 0.03 X10*3/uL (0.00-0.03); Imm Gran Pct Auto 0.3 % (0.0-0.4); Lymphocytes Absolute Auto 0.5 X10*3/uL (1.2-4.9); Lymphocytes Percent Auto 5.3 % (20-40); MANUAL DIFF FLAG SCAN; Mean Corpuscular HGB Conc 33.1 g/dl (31.0-35.0); Mean Corpuscular Volume 84.4 fL (80.0-98.0); Mean Platelet Volume 12.6 fL (9.4-12.3); Monocytes Absolute Auto 0.2 X10*3/uL (0.1-1.2); Monocytes Percent Auto 2.4 % (2-11); Neutrophils Absolute Auto 7.8 x10*3/uL (2.0-8.3); Neutrophils Percent Auto 90.9 % (45-73); Platelet Count 160 X10*3/uL (160-400); Red Blood Count 3.72 X10*6/uL (4.20-5.50); Red Cell Distribution Width 16.7 % (11.0-16.0); SCAN SMEAR FLAG 1; White Blood Count 8.6 X10*3/uL (4.8-10.8)
--- NOTE | 2023-01-20 19:05 | PC.NURSE ---
provider aware of pt's hypertensive state at this time.
--- NOTE | 2023-01-20 19:15 | ED_ITS ---
HPI - General Adult General Chief complaint: General Medical Stated complaint: N/V, MISSED DIALYSIS, BP 240/130 Time Seen by Provider: 01/20/23 19:00 Source: patient, RN notes reviewed and old records reviewed Mode of arrival: EMS Limitations: no limitations History of Present Illness HPI narrative: 32-year-old female with past medical history significant for end-stage renal disease on dialysis, this of heart failure, hypertension, diabetes, and right eye blindness presents for evaluation ?not feeling well. ? Patient reports that she went to dialysis this past Sunday but skipped on due to the holiday She also did not go to dialysis today Patient states that since midnight she has been having chest pain abdominal pain and vomiting She reports weakness and fatigue as well Patient was last seen here from December 29 to January 07 admitted for hypertensive urgency, and diabetic ulcer and diabetes. She reports that she has been taking all her medications On arrival to the ED the patient's blood pressure was 225/134 Related Data Previous Rx's Medication Instructions Recorded aspirin 81 mg tablet,delayed 81 mg PO DAILY #90 tabs 08/20/22 release atorvastatin 40 mg tablet 40 mg PO BEDTIME #90 tabs 08/20/22 clopidogrel 75 mg tablet 75 mg PO DAILY #90 tabs 08/20/22 glipizide 2.5 mg tablet, extended 2.5 mg PO DAILY #90 tabs 08/20/22 release 24 hr losartan 25 mg tablet 25 mg PO DAILY #90 tabs 08/20/22 omeprazole 40 mg capsule,delayed 40 mg PO DAILY@0630 #90 caps 08/20/22 release torsemide 20 mg tablet 40 mg (2 x 20 mg) PO BID #180 tabs 08/20/22 clonidine 0.3 mg/24 hr weekly 0.3 mg transdermal Fr@0900 #4 ea 01/07/23 transdermal patch ([id number]) fentanyl 25 mcg/hr transdermal 25 mcg transdermal Q72H #10 ea 01/07/23 patch omeprazole 20 mg capsule,delayed 20 mg PO DAILY@0630 #30 caps 01/07/23 release Allergies Allergy/AdvReac Type Severity Reaction Status Date / Time morphine [MORPHINE] Allergy Intermediate Itching Verified 01/20/23 18:48 azithromycin [From Zithromax] Allergy Hives Verified 01/20/23 18:48 gabapentin Allergy Facial Verified 01/20/23 18:48 Swelling tramadol Allergy Facial Verified 01/20/23 18:48 Swelling vancomycin Allergy Hives Verified 01/20/23 18:48 Review of Systems 2 Constitutional: Constitutional: Denies chills, Denies fever(s) and Denies headache(s) Eyes: Eyes: Denies blurry vision ENT: Denies headache(s) and Denies sore throat Cardiovascular: Cardiovascular: Reports chest pain and Denies dyspnea Respiratory: Respiratory: Denies cough and Denies dyspnea Gastrointestinal: Gastrointestinal: Reports abdominal pain, Denies hematochezia, Reports nausea and Reports vomiting Musculoskeletal: Musculoskeletal: Denies back pain Integumentary/Breasts: Skin/Breast: Denies rash Neurologic: Denies headache(s) [facility] Past Medical History Medical History (Updated 01/20/23 @ 20:52 by Michele Putnam) Migraine ESRD on dialysis Diabetic foot ulcer associated with type 2 diabetes mellitus Chronic pain Gastroparesis Non-compliance with renal dialysis Hypertension End-stage renal disease (ESRD) Hypertensive emergency Diabetes ESRD needing dialysis Cardiomyopathy HFrEF (heart failure with reduced ejection fraction) Metabolic acidosis delivery delivered Anemia in chronic kidney disease (CKD) CKD (chronic kidney disease) Headache, migraine Abnormal finding on echocardiogram Elevated troponin Chest pain Acute worsening of stage 3 chronic kidney disease Generalized edema Sepsis Cellulitis Pleural effusion CHF (congestive heart failure) (~06/07/22) Tachycardia Atypical chest pain Bone infection PAD (peripheral artery disease) Severe anemia Cellulitis and abscess of foot DM foot ulcer Osteomyelitis test positive test positive Asthma Depression with anxiety Diabetic retinopathy Type 2 diabetes mellitus with hyperglycemia, with long-term current use of insulin Blind right eye Diabetes Back pain Surgical History 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 Family History Family History Mother Coronary artery disease Myocardial infarction Stroke Diabetes mellitus Father Myocardial infarction Social History Household Members: Family Household Members Other:: Sister, [id number], nephew Housing: Apartment Do you presently have visiting nurse or other home services: No Alcohol intake: never Patient Tobacco Use Status: Never used Tobacco Smoked in Last 30 Days: No e-Cigarette/Vaping Use: Never Used Second Hand Smoke Exposure: No Use of substances other than those prescribed or required for medical reasons: No Advance Directives: Yes Advance Directives on File: Yes Advance Directives Date on File: 03/08/20 Patient : No service: No Current occupational status: unemployed and disabled Gender identity: Female Physical Exam ED Vital Signs: Vital Signs - 24 hr 01/20/23 18:51 01/20/23 20:46 01/20/23 21:52 Temperature 97.5 F Pulse Rate 95 122 H 99 Respiratory Rate 18 18 Blood Pressure 225/134 H 167/93 H 174/103 H Pulse Oximetry 100 100 100 Oxygen Delivery Method Room Air Room Air Room Air 01/21/23 00:20 Temperature Pulse Rate 76 Respiratory Rate 18 Blood Pressure 161/97 H Pulse Oximetry 98 Oxygen Delivery Method Room Air BMI result Body Mass Index 27.8 Const General: no acute distress, alert and awake Nutritional Appearance: well nourished Orientation/consciousness: patient oriented x3 HENMT Head: Yes normocephalic and Yes atraumatic Eyes Other: Right conjunctiva is injected with a hazy cornea. Neck Neck: Yes full ROM Resp Effort & Inspection: normal respiratory effort, able to speak in complete sentences and not labored Cardio Rate: regular rate Rhythm: regular rhythm GI Palpation (GI): Soft to palpation, not firm, nontender, no guarding and not rigid Auscultation: normoactive bowel sounds Skin General skin exam: elasticity normal Neuro General: patient oriented x3 Cranial nerves: Yes CN's II-XII intact bilaterally and Yes Bilaterally intact EOM present Cognition (Neuro): normal cognition Extrem Other: Moving all extremities well without any obvious deformities Course Reevaluation(s) Reevaluation #1: Patient refused Reglan due to ?previous bad reaction. ? she also refused nitro paste because ?it makes me itchy. ? I attempted to convince the patient to try it with Benadryl and so far she is on want to do so. Patient was given hydralazine for her hypertension. Of note, the patient's potassium is normal at 3.5 Time: 20:27 Reevaluation #2: A chest x-ray does show some pleural effusions that did not appear enlarged, question is in no evidence of respiratory distress. Despite missing 2 dialysis treatments, the patient is not in acute congestive heart failure exacerbation. Time: 20:50 Medications Administered Discontinued Medications Generic Name Dose Route Start Last Admin Trade Name Brandon PRN Reason Stop Dose Admin Diphenhydramine HCl 25 mg 01/20/23 20:27 01/20/23 20:45 Diphenhydramine Hcl 50 Mg/Ml Vial IVPUSH 01/20/23 20:28 25 mg ONCE ONE Administration Hydralazine HCl 20 mg 01/20/23 19:39 01/20/23 19:46 Hydralazine Hcl 20 Mg/Ml Vial IVPUSH 01/20/23 19:40 20 mg ONCE ONE Administration Protocol Hydromorphone HCl 1 mg 01/20/23 23:31 01/21/23 00:20 Hydromorphone Hcl 1 Mg/Ml Syringe IVPUSH 01/20/23 23:32 1 mg ONCE ONE Administration Protocol Promethazine HCl 12.5 mg/ 50.5 mls @ 202 mls/hr 01/20/23 22:58 01/20/23 23:25 Sodium Chloride IV 01/20/23 22:59 202 mls/hr ONCE ONE Administration Metoclopramide HCl 10 mg 01/20/23 19:13 01/20/23 19:26 Metoclopramide Hcl 10 Mg/2 Ml Vial IVPUSH 01/20/23 19:14 Not Given ONCE ONE Metoprolol Tartrate 10 mg 01/20/23 22:58 01/20/23 23:26 Metoprolol Tartrate 5 Mg/5 Ml Vial IVPUSH 01/20/23 22:59 10 mg ONCE ONE Administration Nitroglycerin 1 inch 01/20/23 19:10 01/20/23 19:26 Nitroglycerin 2 % Oint 1 Gm Packet TRANSDERMA 01/20/23 19:11 Not Given ONCE ONE Medical Decision Making Medical Decision Making MDM Narrative: 32-year-old female with multiple medical problems/committees presents for evaluation of ?not feeling well. She complains of chest pain and vomiting. She missed her most recent dialysis today and on . Blood pressure is hypertensive to the 225/134. EKG is sinus tachycardia with ST depressions in the lateral leads. Will treat her symptoms with Reglan as her QTC is warm to 507 will avoid Zofran. Will treat her hypertensive with nitro paste initially but will consider additional medications as needed. Labs pending Differential Diagnosis Differential Diagnoses: The differential diagnosis associated with the presentation includes Medication noncompliance Hypertensive urgency Hypertensive emergency Volume overload ACS Admission/Observation Consideration of admission/observation: Escalation of care including admission/observation considered Consult Healthcare Provider Management of the patient was discussed with: Hospitalist (Dr Lopez who will admit the patient) and Lining Cementer (Discussed with Nephrology, Dr. Trevino who agrees with admission for dialysis) Lab Data MDM Lab Attestation statement: I reviewed the patient's lab results. Patient has no leukocytosis, her potassium is normal at 3.5, chloride is elevated to 116, CO2 is low at 12 which may be related to hyperventilation or a GI loss from vomiting. Plan for VBG, beta hydroxybutyrate added. Patient has chronic renal failure with a BUN of 39 a creatinine of 3.06, she is on dialysis 01/20/23 18:58 01/20/23 19:36 Labs: Lab Results 01/20/23 01/20/23 01/20/23 Range/Units 18:58 19:36 19:56 WBC 8.6 (4.8-10.8) X10*3/uL RBC 3.72 L D (4.20-5.50) X10*6/uL Hgb 10.4 L (12.0-16.0) g/dl Hct 31.4 L (37.0-47.0) % MCV 84.4 (80.0-98.0) fL MCH 28.0 (27.0-33.0) pg MCHC 33.1 (31.0-35.0) g/dl RDW 16.7 H (11.0-16.0) % Plt Count 160 D (160-400) X10*3/uL MPV 12.6 H (9.4-12.3) fL Immature Gran % (Auto) 0.3 (0.0-0.4) % Neut % (Auto) 90.9 H (45-73) % Lymph % (Auto) 5.3 L (20-40) % [place] % (Auto) 2.4 (2-11) % Eos % (Auto) 0.9 (0-4) % Baso % (Auto) 0.2 (0-2) % Lymph # (Auto) 0.5 L (1.2-4.9) X10*3/uL [place] # (Auto) 0.2 (0.1-1.2) X10*3/uL Eos # (Auto) 0.1 (0.0-0.4) X10*3/uL Baso # (Auto) 0.0 (0.0-0.2) X10*3/uL Abs Immat Gran (auto) 0.03 (0.00-0.03) X10*3/uL Absolute Neuts (auto) 7.8 (2.0-8.3) x10*3/uL Absolute Nucleated RBC 0.000 (0.0-0.012) X10*3/uL Nucleated RBC % (auto) 0.0 (0.0-0.2) /100WBC Smear Tech's Comments VERIFIED VBG pH (7.32-7.43) VBG pCO2 mmHg VBG pO2 mmHg VBG HCO3 (22-26) mmol/L VBG O2 Saturation % VBG Base Excess mmol/L Sodium 135 (135-145) mmol/L Potassium 3.5 (3.3-5.1) mmol/L Chloride 116 H (96-108) mmol/L Carbon Dioxide 12 L (22-29) mmol/L Anion Gap 11 L (12-20) BUN 39 H (9-16) mg/dL Creatinine 3.06 H (0.5-1.4) mg/dL Estim Creat Clear Calc 27.3 Estimated GFR 17 POC Glucose 289 H (60-115) mg/dL Random Glucose 240 H (60-115) mg/dL Calcium 6.2 L D (8.4-10.2) mg/dL Total Bilirubin 0.7 (0.0-1.0) mg/dL AST 13 (5-31) U/L ALT 10 (0-31) U/L Alkaline Phosphatase 76 (39-117) U/L Troponin I High Sens 17.7 H (<3.5-17.0) ng/L Total Protein 5.2 L (6.5-8.0) g/dL Albumin 2.2 L (3.5-5.0) g/dL Beta-Hydroxybutyrate 0.17 (0.02-0.27) mmol/L Influenza Type A (PCR) (Negative) Influenza Type B (PCR) (Negative) RSV RNA Qual (PCR) (Negative) SARS-CoV-2 RNA (RT-PCR) (Negative) 01/20/23 01/20/23 Range/Units 20:45 23:57 WBC (4.8-10.8) X10*3/uL RBC (4.20-5.50) X10*6/uL Hgb (12.0-16.0) g/dl Hct (37.0-47.0) % MCV (80.0-98.0) fL MCH (27.0-33.0) pg MCHC (31.0-35.0) g/dl RDW (11.0-16.0) % Plt Count (160-400) X10*3/uL MPV (9.4-12.3) fL Immature Gran % (Auto) (0.0-0.4) % Neut % (Auto) (45-73) % Lymph % (Auto) (20-40) % [place] % (Auto) (2-11) % Eos % (Auto) (0-4) % Baso % (Auto) (0-2) % Lymph # (Auto) (1.2-4.9) X10*3/uL [place] # (Auto) (0.1-1.2) X10*3/uL Eos # (Auto) (0.0-0.4) X10*3/uL Baso # (Auto) (0.0-0.2) X10*3/uL Abs Immat Gran (auto) (0.00-0.03) X10*3/uL Absolute Neuts (auto) (2.0-8.3) x10*3/uL Absolute Nucleated RBC (0.0-0.012) X10*3/uL Nucleated RBC % (auto) (0.0-0.2) /100WBC Smear Tech's Comments VBG pH 7.47 H (7.32-7.43) VBG pCO2 21 mmHg VBG pO2 136 mmHg VBG HCO3 15 L (22-26) mmol/L VBG O2 Saturation 100.0 % VBG Base Excess -5.9 mmol/L Sodium (135-145) mmol/L Potassium (3.3-5.1) mmol/L Chloride (96-108) mmol/L Carbon Dioxide (22-29) mmol/L Anion Gap (12-20) BUN (9-16) mg/dL Creatinine (0.5-1.4) mg/dL Estim Creat Clear Calc Estimated GFR POC Glucose (60-115) mg/dL Random Glucose (60-115) mg/dL Calcium (8.4-10.2) mg/dL Total Bilirubin (0.0-1.0) mg/dL AST (5-31) U/L ALT (0-31) U/L Alkaline Phosphatase (39-117) U/L Troponin I High Sens 21.2 H (<3.5-17.0) ng/L Total Protein (6.5-8.0) g/dL Albumin (3.5-5.0) g/dL Beta-Hydroxybutyrate (0.02-0.27) mmol/L Influenza Type A (PCR) NEGATIVE (Negative) Influenza Type B (PCR) NEGATIVE (Negative) RSV RNA Qual (PCR) NEGATIVE (Negative) SARS-CoV-2 RNA (RT-PCR) NEGATIVE (Negative) Independent Interpretation I performed an independent interpretation of an: EKG (Sinus rhythm with a rate of 114 beats per minute. Right bundle branch block. ST depressions in the lateral leads notably V4 through V6.) Discharge Plan Discharge Clinical Impression: Hypertension, Renal failure, Vomiting Patient Disposition: Admitted As Inpatient
[2023-01-20 19:22] LABS: Troponin-I High Sensitivity 17.7 ng/L (<3.5-17.0)
[2023-01-20 19:26] LABS: SLIDE REVIEW VERIFIED
--- NOTE | 2023-01-20 19:26 | PC.NURSE ---
this RN attempted to medicate pt, pt refused reglin and nitro due to the way it makes her feel. provider aware.
--- NOTE | 2023-01-20 19:42 | PC.NURSE ---
repeat labs obtained and sent to lab.
[2023-01-20] MEDS: hydrALAZINE HCl 20 MG/ML VIAL IVPUSH (19:46)
--- NOTE | 2023-01-20 19:48 | PC.NURSE ---
medication administered per provider order. will reassess BP shortly. provider bedside w/ pt - pt actively vomiting at this time.
--- NOTE | 2023-01-20 19:59 | PC.NURSE ---
POC = 289mg/dL - will notify provider.
[2023-01-20 20:01] LABS: Alanine Aminotransferase 10 U/L (0-31); Albumin Level 2.2 g/dL (3.5-5.0); Alkaline Phosphatase 76 U/L (39-117); Anion Gap 11 (12-20); Aspartate Amino Transferase 13 U/L (5-31); Bilirubin Total 0.7 mg/dL (0.0-1.0); Blood Urea Nitrogen 39 mg/dL (9-16); Calcium 6.2 mg/dL (8.4-10.2); Carbon Dioxide 12 mmol/L (22-29); Chloride 116 mmol/L (96-108); Creatinine Clr Calc Pharmacy 27.3; Estimated Glomerular Filt Rate 17; Glucose Random 240 mg/dL (60-115); Potassium 3.5 mmol/L (3.3-5.1); Sodium 135 mmol/L (135-145); Total Protein 5.2 g/dL (6.5-8.0)
[2023-01-20 20:02] LABS: Glucose, Whole Blood 289 mg/dL (60-115)
[2023-01-20] MEDS: diphenhydrAMINE HCL 50 MG/ML VIAL 25 MG IVPUSH (20:45)
--- NOTE | 2023-01-20 20:45 | PC.NURSE ---
labs drawn and sent to lab. medication administered per provider order. pt bp decreased at this time. pt remains sinus tachy on supervisor inspection room. pt still actively vomiting at this time.
[2023-01-20 20:46] VITALS: BP 167/93; PULSE 122; O2SAT 100
[2023-01-20 20:51] LABS: VBG Base Excess -5.9 mmol/L; VBG HCO3 15 mmol/L (22-26); VBG pCO2 21 mmHg; VBG pH 7.47 (7.32-7.43); VBG pO2 136 mmHg
[2023-01-20 20:52] LABS: Venous Blood Gas Refer to POC result
[2023-01-20 20:58] LABS: Beta-Hydroxybutyrate 0.17 mmol/L (0.02-0.27)
[2023-01-20 21:52] VITALS: BP 174/103; PULSE 99; RESP 18; O2SAT 100
--- NOTE | 2023-01-20 21:52 | PC.NURSE ---
Addendum entered by Analy Nguyen 01/21/23 06:34: pt refused initial military exchange wireless manager into hospital attire. Original Note: this rn assumed care of pt. pt allowed to sleep at this time, resting comfortably in stretcher, respirations even and unlabored.
--- NOTE | 2023-01-20 22:26 | ECG_ITS ---
Test Reason : ARRYTHMIA Blood Pressure : / mmHG Vent. Rate : 092 BPM Atrial Rate : 092 BPM P-R Int : 160 ms QRS Dur : 144 ms QT Int : 440 ms P-R-T Axes : 093 -02 117 degrees QTc Int : 544 ms Normal sinus rhythm Possible Left atrial enlargement Right bundle branch block T wave abnormality, consider lateral ischemia Abnormal ECG When compared with ECG of 20-JAN-2023 19:06, No significant change was found Referred By: Michele Putnam Electronically Signed By:JEREMÍAS SANDOVAL MD
--- NOTE | 2023-01-20 23:15 | PC.NURSE ---
delay in troponin redraw due to pt refusing labs and ekg, provider aware.
[2023-01-20] MEDS: Metoprolol Tartrate 5 MG/5 ML VIAL 10 MG IVPUSH (23:26)
[2023-01-21] VITALS (8 sets, daily range): BP systolic 161–240; BP diastolic 90–116; PULSE 76–123; RESP 14–22; TEMP 36.4–36.6; O2SAT 96–99
[2023-01-21] MEDS: HYDROmorphone HCl 1 MG/ML SYRINGE IVPUSH ×2 (00:20→09:47)
[2023-01-21 00:22] LABS: Troponin-I High Sensitivity 21.2 ng/L (<3.5-17.0)
--- NOTE | 2023-01-21 00:25 | PC.NURSE ---
pt reporting 9/10 pain around hr body, pt medicated per mar.
[2023-01-21 00:45] LABS: Influenza A PCR NEGATIVE (Negative); Influenza B PCR NEGATIVE (Negative); Resp Syncy Virus RNA Qual PCR NEGATIVE (Negative); SARS COV2 PCR INHOUSE NEGATIVE (Negative)
--- NOTE | 2023-01-21 01:20 | P.HPHOSP_ITS ---
History of Present Illness Date of Service: 01/21/23 Chief Complaint: Intractable nausea vomiting This is a well-known 32-year-old female to our service with a past medical history of ESRD on dialysis MWF, mostly noncompliant, diabetes with nephropathy and legally blind, difficult to control hypertension, noncompliant with meds or dialysis, with frequent hospitalization related to missed dialysis, accelerated hypertension nausea vomiting as well as generalized PN. She comes back to the hospital today with intractable nausea vomiting and miss dialysis x2. Patient is crying, in distress due to the pain, she tells me that she did not go to dialysis because she had significant nausea vomiting and was not feeling well. She also states that she has not been taking any of her medications as her primary care physician told her to stop taking her medications. Of note patient was discharged from the hospital on 01/07 for uncontrolled hypertension On arrival to the ED patient found to have blood pressure of 225/134, improved after receiving hydralazine multiple times, she also had multiple episodes of vomiting, refusing to take Zofran Patient also complaining chest pain right-sided, worse with nausea vomiting On arrival her labs are significant for WBC count of 8.6, hemoglobin of 10.4, hematocrit 34.1 which is around her baseline, pH of 7.47, chloride of 116, potassium of 3.5, sodium 135, BUN of 39, creatinine of 3.06, calcium 6.2, troponin of 17 increased to 21, albumin of 2.2 Chest x-ray showing cardiomegaly and pleural effusion Review of Systems 2 Review of Systems: Yes all other systems are reviewed and are negative FORMERLY [facility], 1928–1983 Medical History Migraine ESRD on dialysis Diabetic foot ulcer associated with type 2 diabetes mellitus Chronic pain Gastroparesis Non-compliance with renal dialysis Hypertension End-stage renal disease (ESRD) Hypertensive emergency Diabetes ESRD needing dialysis Cardiomyopathy HFrEF (heart failure with reduced ejection fraction) Metabolic acidosis delivery delivered Anemia in chronic kidney disease (CKD) CKD (chronic kidney disease) Headache, migraine Abnormal finding on echocardiogram Elevated troponin Chest pain Acute worsening of stage 3 chronic kidney disease Generalized edema Sepsis Cellulitis Pleural effusion CHF (congestive heart failure) (~06/07/22) Tachycardia Atypical chest pain Bone infection PAD (peripheral artery disease) Severe anemia Cellulitis and abscess of foot DM foot ulcer Osteomyelitis test positive test positive Asthma Depression with anxiety Diabetic retinopathy Type 2 diabetes mellitus with hyperglycemia, with long-term current use of insulin Blind right eye Diabetes Back pain Family History Mother Coronary artery disease Myocardial infarction Stroke Diabetes mellitus Father Myocardial infarction Surgical History 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 Household Members: Family Household Members Other:: Sister, Crvgyah-nr-Eac, nephew Housing: Apartment Do you presently have visiting nurse or other home services: No Alcohol intake: never Patient Tobacco Use Status: Never used Tobacco Smoked in Last 30 Days: No e-Cigarette/Vaping Use: Never Used Second Hand Smoke Exposure: No Use of substances other than those prescribed or required for medical reasons: No Advance Directives: Yes Advance Directives on File: Yes Advance Directives Date on File: 03/08/20 Nutrition Risks: No Nutritional Risk Patient : No service: No Current occupational status: unemployed and disabled Gender identity: Female Meds Allergies Allergy/AdvReac Type Severity Reaction Status Date / Time morphine [MORPHINE] Allergy Intermediate Itching Verified 01/20/23 18:48 azithromycin [From Zithromax] Allergy Hives Verified 01/20/23 18:48 gabapentin Allergy Facial Verified 01/20/23 18:48 Swelling tramadol Allergy Facial Verified 01/20/23 18:48 Swelling vancomycin Allergy Hives Verified 01/20/23 18:48 Physical Exam 2 Vital Signs and Narrative: Vital Signs: Last Vital Signs Temp 97.5 F 01/20/23 18:51 Pulse 76 01/21/23 00:20 Resp 18 01/21/23 00:20 BP 161/97 H 01/21/23 00:20 Pulse Ox 98 01/21/23 00:20 O2 Del Method Room Air 01/21/23 00:20 BMI result Body Mass Index 27.8 Const: Other: Patient is crying, on the phone with her significant other, not really forthcoming with much information Orientation/consciousness: patient oriented x3 Eyes: General: appearance normal, both eyes and all related structures Resp: Other: Crackles bilaterally Effort & Inspection: normal respiratory effort Cardio: Rate: regular rate Rhythm: regular rhythm GI: Other: Abdomen is soft, nontender, no rebound or guarding Palpation (GI): Soft to palpation Auscultation: normal bowel sounds Skin: General skin exam: no rashes or lesions noted Neuro: General: patient oriented x3 Cognition (Neuro): normal cognition Extrem: General: Yes normal to inspection and Yes no pedal edema Results Labs 01/20/23 18:58 01/20/23 19:36 Labs: Laboratory Results - last 24 hr 01/20/23 01/20/23 01/20/23 18:58 19:36 19:56 MCV 84.4 MCH 28.0 MCHC 33.1 RDW 16.7 H Plt Count 160 D MPV 12.6 H Immature Gran % (Auto) 0.3 Neut % (Auto) 90.9 H Lymph % (Auto) 5.3 L Licking % (Auto) 2.4 Eos % (Auto) 0.9 Baso % (Auto) 0.2 Lymph # (Auto) 0.5 L Licking # (Auto) 0.2 Eos # (Auto) 0.1 Baso # (Auto) 0.0 Abs Immat Gran (auto) 0.03 Absolute Neuts (auto) 7.8 Absolute Nucleated RBC 0.000 Nucleated RBC % (auto) 0.0 Smear Tech's Comments VERIFIED VBG pH VBG pCO2 VBG pO2 VBG HCO3 VBG O2 Saturation VBG Base Excess Anion Gap 11 L Estim Creat Clear Calc 27.3 Estimated GFR 17 POC Glucose 289 H Random Glucose 240 H Calcium 6.2 L D Total Bilirubin 0.7 AST 13 ALT 10 Alkaline Phosphatase 76 Total Protein 5.2 L Albumin 2.2 L Beta-Hydroxybutyrate 0.17 Influenza Type A (PCR) Influenza Type B (PCR) RSV RNA Qual (PCR) SARS-CoV-2 RNA (RT-PCR) 01/20/23 01/20/23 20:45 23:57 MCV MCH MCHC RDW Plt Count MPV Immature Gran % (Auto) Neut % (Auto) Lymph % (Auto) Licking % (Auto) Eos % (Auto) Baso % (Auto) Lymph # (Auto) Licking # (Auto) Eos # (Auto) Baso # (Auto) Abs Immat Gran (auto) Absolute Neuts (auto) Absolute Nucleated RBC Nucleated RBC % (auto) Smear Tech's Comments VBG pH 7.47 H VBG pCO2 21 VBG pO2 136 VBG HCO3 15 L VBG O2 Saturation 100.0 VBG Base Excess -5.9 Anion Gap Estim Creat Clear Calc Estimated GFR POC Glucose Random Glucose Calcium Total Bilirubin AST ALT Alkaline Phosphatase Total Protein Albumin Beta-Hydroxybutyrate Influenza Type A (PCR) NEGATIVE Influenza Type B (PCR) NEGATIVE RSV RNA Qual (PCR) NEGATIVE SARS-CoV-2 RNA (RT-PCR) NEGATIVE Imaging Radiologist's Impressions: Impressions Chest X-Ray 01/20/23 19:34 IMPRESSION: Cardiomegaly/pleural effusion Assessment and Plan (1) Hypertensive urgency: Status: Resolved (2) Acute exacerbation of CHF (congestive heart failure): Qualifiers: Heart failure type: unspecified Qualified Code(s): I50.9 - Heart failure, unspecified Status: Inactive (3) Intractable nausea and vomiting: Status: Resolved (4) ESRD needing dialysis: Status: Inactive (5) Gastroparesis: Status: Inactive (6) Accelerated hypertension: Status: Resolved (7) Prolonged QT interval: Status: Acute Plan This is a 32-year-old female past medical history of uncontrolled hypertension, noncompliant with medications, ESRD on dialysis not compliant, diabetes, diabetic retinopathy and neuropathy, comes into the hospital with nausea vomiting as well as hypertensive urgency -patient has had multiple admissions in the past for similar findings and presentation # hypertensive urgency/crisis/accelerated hypertension - difficult to control due to her noncompliance with her medications - patient says that her PCP stopped all her medications unclear if that is true - responds well to hydralazine - this time will resume losartan her home medication as well as add hydralazine p.r.n. - nephrology consulted # acute CHF exacerbation - likely secondary to missed dialysis - has history of heart failure with reduced ejection fraction - has pleural effusion on chest x-ray - no hypoxia - oligouric - dialysis in morning # ESRD on dialysis - missed dialysis x2 - patient reports that she missed dialysis due to her intractable nausea vomiting - nephrology consulted for dialysis in a.m. # prolonged QTC - will optimize magnesium potassium - repeat EKG - and monitor on telemetry # intractable nausea vomiting - likely secondary to gastroparesis in the setting of diabetes - p.r.n. antiemetics - monitor symptoms # diabetes - noncompliant with medications - place on low-dose sliding scale insulin - diabetic diet # hypocalcemia - calcium of 6.0 - will order 1 dose of calcium - nephrology consulted DVT prophylaxis: Heparin subQ Given patient's multiple significant abnormalities as above patient require minimum 2 nights inpatient hospital stay for further management and monitoring Quality Stroke Does the patient have a stroke diagnosis?: No VTE Prior VTE?: No VTE Risk Level:: Medical - moderate - high VTE Device Contraindication: Treatment Not Indicated VTE Drug Contraindication: N/A - Med Ordered
--- NOTE | 2023-01-21 02:20 | PC.NURSE ---
attempted to do pt medication rec, pt denies taking any home medications and reports they got discontinued. provider aware.
--- NOTE | 2023-01-21 04:01 | PC.NURSE ---
pt throwing up spit at this time, pt requested nausea medication that is not zofran. hospitalist aware.
--- NOTE | 2023-01-21 04:58 | PC.NURSE ---
pt no longer vomiting, resting on stretcher comfortably.
--- NOTE | 2023-01-21 05:14 | PC.NURSE ---
pt refusing zofran and compazine for vomiting. Dr. Lopez notified as pt states promethazine helped as given previously per apr.
[2023-01-21] MEDS: HYDROmorphone HCl 1 MG/ML SYRINGE 0.5 MG IVPUSH ×2 (05:57→20:39)
[2023-01-21] MEDS: Magnesium Sulfate/H2O 2 GM/50 ML PIGGYBACK IV (05:57)
--- NOTE | 2023-01-21 06:04 | PC.NURSE ---
delay in hanging of potassium due to pt only having one IV access. pt medicated per mar at this time. plan for pt to go to dialysis.
[2023-01-21 06:34] LABS: Anion Gap 18 (12-20); Blood Urea Nitrogen 52 mg/dL (9-16); Calcium 9.3 mg/dL (8.4-10.2); Carbon Dioxide 16 mmol/L (22-29); Chloride 103 mmol/L (96-108); Creatinine Clr Calc Pharmacy 17.4; Estimated Glomerular Filt Rate 10; Glucose Random 274 mg/dL (60-115); Potassium 5.5 mmol/L (3.3-5.1); Sodium 131 mmol/L (135-145)
[2023-01-21 06:40] LABS: Basophils Percent Auto 0.4 % (0-2); Eosinophils Absolute Auto 0.1 X10*3/uL (0.0-0.4); Eosinophils Percent Auto 0.5 % (0-4); Hematocrit 35.4 % (37.0-47.0); Hemoglobin 11.4 g/dl (12.0-16.0); Imm Gran Abs Auto 0.06 X10*3/uL (0.00-0.03); Imm Gran Pct Auto 0.6 % (0.0-0.4); Lymphocytes Absolute Auto 0.5 X10*3/uL (1.2-4.9); Lymphocytes Percent Auto 5.3 % (20-40); MANUAL DIFF FLAG SCAN; Mean Corpuscular HGB Conc 32.2 g/dl (31.0-35.0); Mean Corpuscular Hemoglobin 27.8 pg (27.0-33.0); Mean Corpuscular Volume 86.3 fL (80.0-98.0); Monocytes Absolute Auto 0.3 X10*3/uL (0.1-1.2); Monocytes Percent Auto 2.8 % (2-11); Neutrophils Absolute Auto 8.9 x10*3/uL (2.0-8.3); Neutrophils Percent Auto 90.4 % (45-73); Platelet Count 212 X10*3/uL (160-400); Red Cell Distribution Width 16.6 % (11.0-16.0); SCAN SMEAR FLAG 1; White Blood Count 9.8 X10*3/uL (4.8-10.8)
[2023-01-21 07:05] LABS: Glucose, Whole Blood 246 mg/dL (60-115)
--- NOTE | 2023-01-21 07:07 | MHC.EDTECH ---
Delay in obtaining EKG due to Pt refusing to lay on back, stating she gets nauseas when she lays flat on her back. KIRIT Tracy aware.
--- NOTE | 2023-01-21 07:16 | PC.NURSE ---
assumed care of pt at 0700. pt a&o x4, actively vomiting when t/w saw pt. pt seen by kidney MD, Dr. Sanchez. pt potassium 5.5, Dr. Sanchez aware and discontinued potassium administration. documented per apr. pt plan to go to dialysis today. hasn't had dialysis since Tuesday 01/16. pt not changed over to hospital attire. refused overnight. pt also refusing to lay on back for EKG. sts she is too uncomfortable.
--- NOTE | 2023-01-21 07:25 | PM.CNNEP ---
History of Present Illness Reason for Consult Consult date: 01/21/23 Chief Complaint Chief complaint: intractable n/v History of Present Illness Narrative: 32 year old patient with history of ESRD on chronic hemodialysis presented to the hospital with intractable vomiting. She tells me she missed her dialysis treatment twice and had her last treatment on Sunday. Patient was also found to be hypertensive with systolic blood pressure in the 200 range. Review of Systems Review of Systems 10 points ROS negative except for pertinent in HPI PMFSH Past Medical History Medical History (Updated 01/21/23 @ 07:30 by Jason Sanchez MD) End-stage renal disease (ESRD) Migraine ESRD on dialysis Diabetic foot ulcer associated with type 2 diabetes mellitus Chronic pain Gastroparesis Non-compliance with renal dialysis Hypertension Hypertensive emergency Diabetes ESRD needing dialysis Cardiomyopathy HFrEF (heart failure with reduced ejection fraction) Metabolic acidosis delivery delivered Anemia in chronic kidney disease (CKD) CKD (chronic kidney disease) Headache, migraine Abnormal finding on echocardiogram Elevated troponin Chest pain Acute worsening of stage 3 chronic kidney disease Generalized edema Sepsis Cellulitis Pleural effusion CHF (congestive heart failure) (~06/07/22) Tachycardia Atypical chest pain Bone infection PAD (peripheral artery disease) Severe anemia Cellulitis and abscess of foot DM foot ulcer Osteomyelitis test positive test positive Asthma Depression with anxiety Diabetic retinopathy Type 2 diabetes mellitus with hyperglycemia, with long-term current use of insulin Blind right eye Diabetes Back pain Family History Family History Mother Coronary artery disease Myocardial infarction Stroke Diabetes mellitus Father Myocardial infarction Surgical History Surgical History 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 Social History Household Members: Family Household Members Other:: Sister, Kdgthks-ju-Wyk, nephew Housing: Apartment Do you presently have visiting nurse or other home services: No Alcohol intake: never Patient Tobacco Use Status: Never used Tobacco Smoked in Last 30 Days: No e-Cigarette/Vaping Use: Never Used Second Hand Smoke Exposure: No Use of substances other than those prescribed or required for medical reasons: No Advance Directives: Yes Advance Directives on File: Yes Advance Directives Date on File: 03/08/20 Nutrition Risks: No Nutritional Risk Patient : No service: No Current occupational status: unemployed and disabled Gender identity: Female Meds Allergies Allergy/AdvReac Type Severity Reaction Status Date / Time morphine [MORPHINE] Allergy Intermediate Itching Verified 01/20/23 18:48 azithromycin [From Zithromax] Allergy Hives Verified 01/20/23 18:48 gabapentin Allergy Facial Verified 01/20/23 18:48 Swelling tramadol Allergy Facial Verified 01/20/23 18:48 Swelling vancomycin Allergy Hives Verified 01/20/23 18:48 Active Medications: Current Medications Acetaminophen (Acetaminophen 325 Mg Tablet) 650 mg PO Q6H PRN PRN Reason: Pain, Mild (Pain Scale 1-3) Dextrose (Dextrose 50 % 25 Gm/50 Ml Syringe) 25 gm IVPUSH Q15M PRN; Protocol PRN Reason: per Hypoglycemia Standing Ord. Glucose (Glucose Gel 15 Gm Gel..Gram.) 15 gm PO Q15M PRN; Protocol PRN Reason: per Hypoglycemia Standing Ord. Heparin Sodium (Porcine) (Heparin Sodium,Porcine 5,000 Unit/Ml Vial) 5,000 unit SUBCUT Q12H [facility] Last Admin: 01/21/23 02:30 Dose: Not Given Hydralazine HCl (Hydralazine Hcl 20 Mg/Ml Vial) 5 mg IVPUSH Q6H PRN; Protocol PRN Reason: SBP> 180 Hydromorphone HCl (Hydromorphone Hcl 1 Mg/Ml Syringe) 0.5 mg IVPUSH Q4H PRN; Protocol PRN Reason: Pain, Severe (Pain Scale 7-10) Last Admin: 01/21/23 05:57 Dose: 0.5 mg Promethazine HCl 6.25 mg/ (Sodium Chloride) 50.25 mls @ 201 mls/hr IV Q6H PRN PRN Reason: Nausea and Vomiting Potassium Chloride (Potassium Chloride/H20) 10 meq in 100 mls @ 100 mls/hr IV Q1H [facility] Stop: 01/21/23 09:14 Last Admin: 01/21/23 07:15 Dose: Not Given Calcium Gluconate (Calcium Gluconate) 2 gm in 100 mls @ 50 mls/hr IV ONCE ONE Stop: 01/21/23 08:40 Insulin Human Lispro (Insulin Lispro 100 Unit/Ml 3 Ml Vial) 0 unit SUBCUT QIDACHS [facility]; Protocol Losartan Potassium (Losartan Potassium 25 Mg Tablet) 25 mg PO DAILY [facility]; Protocol Sodium Chloride (0.9 % Sodium Chloride Flush 3 Ml Syringe) 3 ml IVFLUSH QSHIFT [facility] Physical Exam Vital Signs: Last Vital Signs Temp 97.5 F 01/20/23 18:51 Pulse 88 01/21/23 05:44 Resp 20 01/21/23 05:44 BP 199/109 H 01/21/23 05:44 Pulse Ox 99 01/21/23 05:44 O2 Del Method Room Air 01/21/23 05:44 BMI result Body Mass Index 27.8 Const General: no acute distress HEENT Head: Yes normocephalic and Yes atraumatic Neck Neck: Yes supple Resp Auscultation: diminished lung sounds Cardio Rate: tachycardic Heart sounds: S1 normal heart sound present and S2 normal heart sound present GI Palpation (GI): Soft to palpation and nontender Extrem General: Yes no pedal edema Results Lab Results 01/20/23 18:58 01/21/23 06:04 Lab results: Chemistry 01/20/23 01/21/23 19:36 06:04 Sodium 135 131 L Potassium 3.5 5.5 H D Carbon Dioxide 12 L 16 L BUN 39 H 52 H Creatinine 3.06 H 4.78 H* Calcium 6.2 L D 9.3 D Hematology 01/20/23 18:58 WBC 8.6 Hgb 10.4 L Plt Count 160 D Assessment and Plan (1) End-stage renal disease (ESRD): Status: Acute (2) Hyperkalemia: Status: Acute (3) Hyponatremia: Status: Acute (4) Hypertension: Status: Acute (5) Anemia: Status: Inactive Plan missed HD x 2 usually has HD at [facility] followed by Dr Siddiqi hypervolemic hyponatremia elevated BP most likely volume sensitive REC HD today (dialysis nurse called and orders entered) UF as tolerated dc K supplements renal diet phosphate binders Procedures Date of Service Date of Service: 01/21/23
[2023-01-21 07:27] LABS: SLIDE REVIEW VERIFIED
--- NOTE | 2023-01-21 07:40 | PC.NURSE ---
22G IV placed to Right Hand.
[2023-01-21] MEDS: Insulin Lispro 100 UNIT/ML 3 ML VIAL SUBCUT ×3 (08:10→20:57)
[2023-01-21 08:16] LABS: B Type Natriuretic Peptide 7695 pg/mL (<100)
--- NOTE | 2023-01-21 08:37 | PC.NURSE ---
attempted to medicate pt with BP medication. pt refused jonny due to nausea/vomiting. Dr. Shepherd notified and aware. plan to order/give IV medication.
[2023-01-21] MEDS: Calcium Gluconate/NaCl,Iso-Osm 2 GM/100 ML PLAST..BAG IV (09:01)
[2023-01-21] MEDS: hydrALAZINE HCl 20 MG/ML VIAL 10 MG IVPUSH ×3 (09:46→20:37)
--- NOTE | 2023-01-21 10:03 | PC.NURSE ---
pt medicated per mar for BP, nausea, and pain. pt brought up to dialysis by maribell Srivastava.
--- NOTE | 2023-01-21 12:46 | PM.EVENT ---
Event Note Date of Service: 01/21/23 Event Note: Patient examined chart reviewed. Patient well known to this service. Will continue current therapies with hemodialysis as per Renal. No changes from initial presentation as documented Time Spent With Patient Time: Total time managing care of this patient today ____ minutes.
[2023-01-21] MEDS: ondansetron HCL 4 MG/2 ML VIAL IVPUSH (13:07)
--- NOTE | 2023-01-21 14:21 | PC.NURSE ---
dialysis complete. pt has bed assignment and will go to room from dialysis. report given to KIRIT Torres.
[2023-01-21 15:51] LABS: Glucose, Whole Blood 185 mg/dL (60-115)
[2023-01-21] MEDS: 0.9 % Sodium Chloride Flush 3 ML SYRINGE IVFLUSH (15:58)
--- NOTE | 2023-01-21 18:14 | PC.NURSE ---
patient was offered fennergan for nauseau at 1600 and 1800, pt awake and alert but did not respond to this nurse's questions.
--- NOTE | 2023-01-21 18:51 | PHA.MEDREC ---
Addendum entered by Kacy Alvarado [facility] 01/29/23 11:29: Dr. Bess calling about meds that were continued on discharge from last admission ( losartan, asprin, plavix, losartan, omeprazole, tosemide, glipizide etc). Patient states she is not taking any medications and has stopped them all. Dr. Bess requesting they be added back to the med rec. I called [facility] and our [facility] downstairs. She has not picked up any medications at [facility] ( Metoclopramide and clonidine patches on hold). The last fill and shredder picker at [facility] for atorvastatin, plavix, aspirin, losartan and glipizide were 08/20/22 for a 90 day supply. The torsemide was last filled filled on 09/23/22 for 30 day supply. Original Note: Pharmacy Consult ? Medication Reconciliation Pharmacy has completed the medication reconciliation. patient stopped all PO medications. She did have a fentanyl and clonidine patch prescribed recently and when asked she only uses the clonidine patch at home.
[2023-01-21 20:47] LABS: Glucose, Whole Blood 285 mg/dL (60-115)
[2023-01-22] VITALS (13 sets, daily range): BP systolic 119–203; BP diastolic 54–107; PULSE 72–133; RESP 18–37; TEMP 36.1–36.6; O2SAT 94–99
[2023-01-22] MEDS: hydrALAZINE HCl 20 MG/ML VIAL 10 MG IVPUSH ×6 (01:41→21:23)
[2023-01-22] MEDS: HYDROmorphone HCl 1 MG/ML SYRINGE 0.5 MG IVPUSH ×3 (01:49→17:29)
[2023-01-22] MEDS: hydrALAZINE HCl 20 MG/ML VIAL 5 MG IVPUSH (03:48)
--- NOTE | 2023-01-22 04:19 | HO.SKINPHOTO ---
Location: Sole of Left Foot Category: Diabetic Ulcer Stage: Length: 3cm Width: 2cm Depth: cm Location: Category: Stage: Length: Width: Depth: cm Location: Category: Stage: Length: Width: Depth: cm Location: Category: Stage: Length: Width: Depth: cm Location: Category: Stage: Length: Width: Depth: cm Location: Category: Stage: Length: Width: Depth: cm
--- NOTE | 2023-01-22 06:30 | PC.NURSE ---
Upon initial assessment at approximately 1900- pt A+Ox4, vague, answering majority of questions by nodding head yes/no. Pt resistive to care at times. Pt hunched over in bed, actively vomiting brown bile/ retching. Complaining of 10/10 generalized pain. Abd is round, positive bowel sounds, passing flatus, pt unsure of when last BM was. Sinus tach on tele, HR 110-120s. Hypertensive, SBP 190s. Afebrile. Respirations even and unlabored, on RA. Pt awake vomiting/retching for majority of the night. Offered patient PRN Phenergan and Reglan numerous times throughout the night- pt refusing meds, stating they don't work . made aware- EKG ordered to assess QTc- pt refused EKG. PRN Dilaudid given as ordered for pain with some effectiveness. Emotional support provided throughout shift. Call moore within reach. Telemonitor in place. Bed locked and in lowest position. Report given to oncoming RN.
[2023-01-22 07:35] LABS: Glucose, Whole Blood 294 mg/dL (60-115)
[2023-01-22] MEDS: Insulin Lispro 100 UNIT/ML 3 ML VIAL SUBCUT ×2 (07:51→17:28)
--- NOTE | 2023-01-22 08:02 | PC.NURSE ---
Addendum entered by Thor Patrick RN 01/23/23 16:59: informed MD pt is a hardstick, multiple IV attempts failed. Per MD ok to keep field IV in place Addendum entered by Thor Patrick RN 01/23/23 16:59: informed md of pt's critical result Addendum entered by Thor Patrick RN 01/23/23 14:12: informed md of critical trop Addendum entered by Thor Patrick RN 01/23/23 11:38: informed md of critical lab. pt has prolonged QT per md hold anti-nausea med Addendum entered by Thor Patrick RN 01/22/23 18:16: pt having second episode of shaking. pt able to communicate and follow commands. pt stated she doesn know why she is having these shaking/tremor episodes. informed Addendum entered by Thor Patrick RN 01/22/23 13:14: this RN was informed pt was having seizure like episodes w/ uncontrollable shaking. This RN entered the room, family was present. pt was shaking, moaning and yelling, vomiting on the side of the bed clear brown fluid. pt also c/o chest pain. pages stat. IVP ativan administered as ordered w/ + effect. Original Note: informed md of pt's constant dry heaving, n/v, refusal of PO meds and refusal of n/v meds & pt's BP
--- NOTE | 2023-01-22 09:14 | P.PNNP_ITS ---
Subjective Subjective Date of Service: 01/22/23 Interval history: Pt c/o Nausea Not feeling well Physical Exam 2 Vital Signs: Vital Signs: Last Vital Signs Temp 97.2 F 01/22/23 08:38 Pulse 112 H 01/22/23 08:38 Resp 20 01/22/23 08:38 BP 131/64 01/22/23 08:38 Pulse Ox 97 01/22/23 08:38 O2 Del Method Room Air 01/22/23 08:38 BMI result Body Mass Index 27.8 Const: General: no acute distress HEENT: Head: Yes normocephalic and Yes atraumatic Neck: Neck: Yes supple Resp: Auscultation: diminished lung sounds Cardio: Rate: tachycardic Heart sounds: S1 normal heart sound present and S2 normal heart sound present GI: Palpation (GI): Soft to palpation and nontender Extrem: General: Yes no pedal edema Objective Data Labs 01/21/23 06:04 01/21/23 06:04 Labs: Laboratory Results - last 24 hr 01/21/23 01/21/23 01/22/23 15:47 20:42 07:31 POC Glucose 185 H 285 H 294 H Procedures Date of Service Date of Service: 01/22/23 Assessment & Plan Assessment and plan (1) End-stage renal disease (ESRD): Status: Acute (2) Hyperkalemia: Status: Acute (3) Hyponatremia: Status: Acute (4) Vomiting: Status: Acute (5) Hypertension, uncontrolled: Status: Resolved (6) ESRD on dialysis: Status: Inactive Plan Ms. Taylor has a PMHx of ESRD, T2DM, uncontrolled HTN and noncompliance with diaylsis/medications. She is admitted with HTN emergency. 1. ESRD Continue mwf dialysis- HDtoday ESRD diet, salt and potassium restricted 2. HTN: doing better- On Losartan- Hydralazine PRN 3. Nephrogenic anemia s/p Venofer Last admission _ will check Fe stores and Start EPO ( Fe stores ordered) 4. Nausea: not d/t uremia? Gastroperesis Time Spent With Patient Time: Total time managing care of this patient today ____ minutes. Progress Note: Quality Stroke Does the patient have a stroke diagnosis?: No
--- NOTE | 2023-01-22 09:22 | MHC.CM.PN ---
IMM 01/22. Pt lives at home with her sister/[employer]PERATOR Josy ([phone]), for [employer] hours has 34 day/hrs, and 14 hs/hrs. Pts sister will transport her back home at time of discharge. Pt goes to [facility] for Dialysis T--SUN. HCP on file and verified. PCP: Dr. Abdon Beard
[2023-01-22 10:14] LABS: Iron 97 mcg/dL (30-160); Percent Iron Saturation 52 % (15-50); Total Iron Binding Capacity 187 mcg/dL (228-428); Unsaturated Iron Binding 90 ug/dL
[2023-01-22 10:36] LABS: Ferritin 545 ng/mL (10-122)
[2023-01-22 11:53] LABS: Glucose, Whole Blood 135 mg/dL (60-115)
[2023-01-22] MEDS: LORazepam 2 MG/ML VIAL 1 MG IVPUSH (13:12)
[2023-01-22] MEDS: HYDROmorphone HCl 1 MG/ML SYRINGE IVPUSH ×2 (13:24→21:23)
--- NOTE | 2023-01-22 15:17 | P.PNIM_ITS ---
Subjective Subjective Date of Service: 01/22/23 Interval History: No acute issues overnight. Remains nauseous with poor response to medicines. Poor compliance with therapies Review of Systems Admits to intermittent chest pain musculoskeletal in nature Denies shortness of breath Admits to nausea and vomiting Physical Exam 2 Vital Signs: Vital Signs: Last Vital Signs Temp 97.6 F 01/22/23 13:16 Pulse 124 H 01/22/23 13:13 Resp 37 H 01/22/23 13:13 BP 140/74 H 01/22/23 13:13 Pulse Ox 98 01/22/23 13:16 O2 Del Method Room Air 01/22/23 13:16 BMI result Body Mass Index 27.8 Const: Other: Awake alert visibly uncomfortable Resp: Other: Clear to auscultation bilaterally no rales rhonchi or wheezes Cardio: Other: No S4; positive S1-S2; no S3 murmurs rubs or gallops GI: Other: Soft nontender nondistended normoactive bowel sounds Extrem: Other: No edema bilaterally Objective Data Active Medications Acetaminophen (Acetaminophen 325 Mg Tablet) 650 mg PO Q6H PRN PRN Reason: Pain, Mild (Pain Scale 1-3) Dextrose (Dextrose 50 % 25 Gm/50 Ml Syringe) 25 gm IVPUSH Q15M PRN; Protocol PRN Reason: per Hypoglycemia Standing Ord. Glucose (Glucose Gel 15 Gm Gel..Gram.) 15 gm PO Q15M PRN; Protocol PRN Reason: per Hypoglycemia Standing Ord. Heparin Sodium (Porcine) (Heparin Sodium,Porcine 5,000 Unit/Ml Vial) 5,000 unit SUBCUT Q12H [facility] Last Admin: 01/22/23 11:48 Dose: Not Given Documented By: COOPER Non-Admin Reason: Patient Refused Hydralazine HCl (Hydralazine Hcl 20 Mg/Ml Vial) 5 mg IVPUSH Q6H PRN; Protocol PRN Reason: SBP> 180 Last Admin: 01/22/23 03:48 Dose: 5 mg Documented By: ZACKARY Hydralazine HCl (Hydralazine Hcl 20 Mg/Ml Vial) 10 mg IVPUSH Q4H [facility]; Protocol Last Admin: 01/22/23 13:18 Dose: 10 mg Documented By: COOPER Hydromorphone HCl (Hydromorphone Hcl 1 Mg/Ml Syringe) 0.5 mg IVPUSH Q4H PRN; Protocol PRN Reason: Pain, Severe (Pain Scale 7-10) Last Admin: 01/22/23 07:51 Dose: 0.5 mg Documented By: COOPER Hydromorphone HCl (Hydromorphone Hcl 1 Mg/Ml Syringe) 1 mg IVPUSH Q4H PRN; Protocol PRN Reason: Pain, Severe (Pain Scale 7-10) Last Admin: 01/22/23 13:24 Dose: 1 mg Documented By: COOPER Promethazine HCl 6.25 mg/ (Sodium Chloride) 50.25 mls @ 201 mls/hr IV Q6H PRN PRN Reason: Nausea and Vomiting Last Infusion: 01/21/23 19:00 Dose: Infused Documented By: ZACKARY Insulin Human Lispro (Insulin Lispro 100 Unit/Ml 3 Ml Vial) 0 unit SUBCUT QIDACHS [facility]; Protocol Last Admin: 01/22/23 11:56 Dose: Not Given Documented By: COOPER Non-Admin Reason: See Note Losartan Potassium (Losartan Potassium 25 Mg Tablet) 25 mg PO DAILY [facility]; Protocol Last Admin: 01/22/23 07:51 Dose: Not Given Documented By: COOPER Non-Admin Reason: Patient Refused Metoclopramide HCl (Metoclopramide Hcl 10 Mg/2 Ml Vial) 10 mg IVPUSH ONCE PRN PRN Reason: Nausea and Vomiting Sodium Chloride (0.9 % Sodium Chloride Flush 3 Ml Syringe) 3 ml IVFLUSH [facility] Last Admin: 01/22/23 13:14 Dose: Not Given Documented By: COOPER Non-Admin Reason: See Note Labs 01/21/23 06:04 01/21/23 06:04 Labs: Laboratory Results - last 24 hr 01/21/23 01/21/23 01/21/23 06:04 15:47 20:42 POC Glucose 185 H 285 H Iron 97 TIBC 187 L % Saturation 52 H Unsat Iron Binding 90 Ferritin 545 H 01/22/23 01/22/23 07:31 11:49 POC Glucose 294 H 135 H Iron TIBC % Saturation Unsat Iron Binding Ferritin Assessment and Plan (1) Hypertension: Status: Acute (2) End-stage renal disease (ESRD): Status: Acute Plan This is a 32-year-old female past medical history of uncontrolled hypertension, noncompliant with medications, ESRD on dialysis not compliant, diabetes, diabetic retinopathy and neuropathy, comes into the hospital with nausea vomiting as well as hypertensive urgency -patient has had multiple admissions in the past for similar findings and presentation 1.Hypertensive urgency/crisis/accelerated hypertension - received multiple doses of hydralazine with good response -poor compliance with therapies in house 2.Acute CHF exacerbation -resolved with dialysis -follow clinically 3.ESRD on dialysis - receive dialysis in-house with good response -nephrology following 4.Intractable nausea vomiting - likely secondary to gastroparesis in the setting of diabetes - p.r.n. antiemetics - monitor symptoms 5.Diabetes - noncompliant with medications - place on low-dose sliding scale insulin - diabetic diet Heparin subQ Full code Requires ongoing hospitalization for IV medication to control hypertensive urgency 2nd to inability to take p.o. as Quality Stroke Does the patient have a stroke diagnosis?: No VTE Prior VTE?: No VTE Risk Level:: Medical - moderate - high VTE Device Contraindication: Treatment Not Indicated VTE Drug Contraindication: N/A - Med Ordered
--- NOTE | 2023-01-22 15:38 | HO.WOUND ---
Wound Consult: Initial 32yr old female admitted [place] [facility] [place]- See progress notes and H&P for detailed history. Pt recently seen by this inpatient wound nurse last admission for the plantar wound on 01/01/23. Pt continues to report she does not follow with a specific physician for the plantar wound at this time - she reports she has been to wound clinic in the past but not recently. She reports she has not consistently treated the plantar wound since her last discharge [place] [facility]. 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 Attempted education to pt but she was not able to stay awake at the time of my assessment. . Pt reports she has been offered an off loading boot in the past but refused and reports she will not wear one. Left Plantar Foot Etiology: Diabetic Foot wound Measurements: 1cm x 0.8cm x 0.4cm Wound Bed: Dry red tissue Drainage / Odor: no odor noted scant yellow drainage noted Edges: ? callused and dirty Pao wound: ? No Induration, No Fluctuance, No Erythema, No Warmth - no S/S of active infection Pain: Denies reports neuropathy Goals of Treatment: ? Durafiber AG for moisture management and antimicrobial properties 01/22/23 todays assessment 01/22/23 Todays assessment 01/01/23 Assessment Recommendations: 1. Turn and Reposition every 2 hours and as needed for patient comfort consider use of wedges available in the storeroom. 2. Off Load all bony prominences with use of pillows, wedges and heel boots. 3. Monitor for incontinence and moisture control. 4. Provide adequate and supplemental nutrition. 5. Order or Continue low air loss mattress. 6. Maintain blood glucose levels per Providers orders. 7. Left Plantar foot - Off Load Pressure - Cleanse / Excel with Betadine. Pack wound bed with Durafiber AG, cover with dry gauze and ABD pad, gauze wrap. Change Daily while inpatient.
[2023-01-22 16:16] LABS: Glucose, Whole Blood 179 mg/dL (60-115)
[2023-01-22 20:08] LABS: Glucose, Whole Blood 111 mg/dL (60-115)
[2023-01-22] MEDS: Metoclopramide HCl 10 MG/2 ML VIAL IVPUSH (21:23)
[2023-01-22] MEDS: 0.9 % Sodium Chloride Flush 3 ML SYRINGE IVFLUSH ×2 (21:24)
--- NOTE | 2023-01-23 | ECG_ITS ---
Test Reason : qtc Blood Pressure : / mmHG Vent. Rate : 108 BPM Atrial Rate : 108 BPM P-R Int : 140 ms QRS Dur : 128 ms QT Int : 402 ms P-R-T Axes : 073 -28 249 degrees QTc Int : 538 ms Sinus tachycardia Biatrial enlargement Right bundle branch block T wave abnormality, consider inferolateral ischemia Abnormal ECG When compared with ECG of 20-JAN-2023 23:30, T wave inversion now evident in Inferior leads T wave inversion more evident in Lateral leads Anterior leads Referred By: Gildardo Bess Electronically Signed By:JEREMÍAS SANDOVAL MD
[2023-01-23] MEDS: LORazepam 2 MG/ML VIAL 1 MG IVPUSH (00:51)
[2023-01-23 01:15] VITALS: PULSE 110
[2023-01-23] MEDS: hydrALAZINE HCl 20 MG/ML VIAL 10 MG IVPUSH ×3 (02:49→16:35)
[2023-01-23 02:54] VITALS: BP 104/57; PULSE 98; RESP 14; TEMP 36.4; O2SAT 96
[2023-01-23 07:13] LABS: Glucose, Whole Blood 181 mg/dL (60-115)
[2023-01-23 08:30] VITALS: BP 124/67; PULSE 122; RESP 18; TEMP 36.2; O2SAT 95
[2023-01-23] MEDS: HYDROmorphone HCl 1 MG/ML SYRINGE IVPUSH ×3 (08:32→22:13)
[2023-01-23] MEDS: Insulin Lispro 100 UNIT/ML 3 ML VIAL SUBCUT (08:33)
--- NOTE | 2023-01-23 08:51 | P.CDIM_ITS ---
PROVIDER RESPONSE TEXT: To clarify, the appropriate diagnosis supported by the clinical indicators: Diabetes mellitus Type 2 with hyperglycemia QUERY TEXT: PHYSICIAN'S DOCUMENTATION REQUEST Date of Query: 01/22/2023 08:26 AM EST Patient Name: Shereen Taylor Admit Date: 01/21/2023 Dear Steve Shepherd, A review of the medical record indicates additional documentation may be needed. Please review below and update the documentation accordingly. Clinical Indicators: LABS: POC glucose 246 185 285 H Noncompliant with medication. Please clarify the following regarding the Complications of Diabetes Mellitus (DM): Diabetes mellitus Type 2 with hyperglycemia Other please specify uncontrolled, poorly controlled etc. Other (explain) Clinically unable to determine (explain) Thank you, Betsey Metz, CCS, CDIS Use of terms such as suspected, likely, concern for, or probable (associated with a specific diagnosi s that is being evaluated, monitored, or treated as if it exists) are acceptable and can be coded in the inpatient se tting, when documented at the time of discharge. Please use your independent medical judgment in providing your response. THIS QUERY IS PART OF THE PERMANENT MEDICAL RECORD
--- NOTE | 2023-01-23 10:53 | P.PNNP_ITS ---
Subjective Subjective Date of Service: 01/23/23 Interval history: No acute issues overnight. Remains nauseous with poor response to medicines. Poor compliance with therapies Physical Exam 2 Vital Signs: Vital Signs: Last Vital Signs Temp 97.2 F 01/23/23 08:30 Pulse 122 H 01/23/23 08:30 Resp 18 01/23/23 08:30 BP 124/67 01/23/23 08:30 Pulse Ox 95 01/23/23 08:30 O2 Del Method Room Air 01/23/23 08:30 BMI result Body Mass Index 27.8 Const: Other: Awake alert visibly uncomfortable Resp: Other: Clear to auscultation bilaterally no rales rhonchi or wheezes Cardio: Other: No S4; positive S1-S2; no S3 murmurs rubs or gallops GI: Other: Soft nontender nondistended normoactive bowel sounds Extrem: Other: No edema bilaterally Objective Data Labs 01/21/23 06:04 01/21/23 06:04 Labs: Laboratory Results - last 24 hr 01/22/23 01/22/23 01/22/23 11:49 16:07 19:59 POC Glucose 135 H 179 H 111 01/23/23 07:09 POC Glucose 181 H Procedures Date of Service Date of Service: 01/23/23 Assessment & Plan Assessment and plan (1) End-stage renal disease (ESRD): Status: Acute (2) Hyperkalemia: Status: Acute (3) Vomiting: Status: Acute (4) Hyponatremia: Status: Acute (5) Hypertension, uncontrolled: Status: Resolved (6) ESRD on dialysis: Status: Inactive Plan Ms. Taylor has a PMHx of ESRD, T2DM, uncontrolled HTN and noncompliance with diaylsis/medications. She is admitted with HTN emergency. 1. ESRD Continue mwf dialysis ESRD diet, salt and potassium restricted 2. HTN: doing better- On Losartan- Hydralazine PRN 3. Nephrogenic anemia s/p Venofer Last admission- FE stores- OK Started EPO 4. Nausea: not d/t uremia? Gastroperesis - PPI started Time Spent With Patient Time: Total time managing care of this patient today ____ minutes. Progress Note: Quality Stroke Does the patient have a stroke diagnosis?: No
[2023-01-23 11:01] LABS: Glucose, Whole Blood 130 mg/dL (60-115)
[2023-01-23 11:03] VITALS: BP 135/75; PULSE 108; RESP 20; TEMP 36.5; O2SAT 98
[2023-01-23 11:37] LABS: Anion Gap 20 (12-20); Blood Urea Nitrogen 34 mg/dL (9-16); Carbon Dioxide 25 mmol/L (22-29); Chloride 96 mmol/L (96-108); Creatinine Clr Calc Pharmacy 15.4; Estimated Glomerular Filt Rate 9; Glucose Random 129 mg/dL (60-115); Potassium 3.8 mmol/L (3.3-5.1); Sodium 137 mmol/L (135-145)
[2023-01-23 12:53] LABS: Magnesium 2.8 mg/dL (1.6-2.6)
[2023-01-23] MEDS: Pantoprazole Sodium 40 MG/10 ML VIAL IVPUSH ×2 (13:06→16:35)
[2023-01-23 14:11] LABS: Troponin-I High Sensitivity 379.8 ng/L (<3.5-17.0)
[2023-01-23] MEDS: Aspirin 81 MG TAB.CHEW 162 MG PO (14:26)
[2023-01-23 15:27] VITALS: BP 129/65; PULSE 115; RESP 20; TEMP 36.6; O2SAT 97
[2023-01-23 16:24] LABS: Glucose, Whole Blood 128 mg/dL (60-115)
--- NOTE | 2023-01-23 17:20 | HO.PM.IMPN ---
Subjective Subjective Date of Service: 01/23/23 Interval History: esrd, possible nstemi Review of Systems denies any chest pain or sob nausea slightly improving Physical Exam Vital Signs: Vital Signs: Last Vital Signs Temp 97.9 F 01/23/23 15:27 Pulse 115 H 01/23/23 15:27 Resp 20 01/23/23 15:27 BP 129/65 01/23/23 15:27 Pulse Ox 97 01/23/23 15:27 O2 Del Method Room Air 01/23/23 15:27 BMI result Body Mass Index 27.8 Appearance: Alert.? Oriented X3.? cvs: rrr, [id number] , no murmur res: clear to auscultation ,no rhonchii or wheezing abd: no rebound or guarding ,nt, bs present. ext pulses present , no cyanosis . neuro: axo3 , nonfocal. Objective Data Active Medications Acetaminophen (Acetaminophen 325 Mg Tablet) 650 mg PO Q6H PRN PRN Reason: Pain, Mild (Pain Scale 1-3) Dextrose (Dextrose 50 % 25 Gm/50 Ml Syringe) 25 gm IVPUSH Q15M PRN; Protocol PRN Reason: per Hypoglycemia Standing Ord. Glucose (Glucose Gel 15 Gm Gel..Gram.) 15 gm PO Q15M PRN; Protocol PRN Reason: per Hypoglycemia Standing Ord. Heparin Sodium (Porcine) (Heparin Sodium,Porcine 5,000 Unit/Ml Vial) 3,100 unit 40 unit/kg (3100 unit) IVPUSH PROTOCOL BOLUS PRN; Protocol PRN Reason: 40 unit/kg - Heparin Protocol Heparin Sodium (Porcine) (Heparin Sodium,Porcine 5,000 Unit/Ml Vial) 6,200 unit 80 unit/kg (6200 unit) IVPUSH PROTOCOL BOLUS PRN; Protocol PRN Reason: 80 unit/kg - Heparin Protocol Hydralazine HCl (Hydralazine Hcl 20 Mg/Ml Vial) 5 mg IVPUSH Q6H PRN; Protocol PRN Reason: SBP> 180 Last Admin: 01/22/23 03:48 Dose: 5 mg Documented By: ZACKARY Hydralazine HCl (Hydralazine Hcl 20 Mg/Ml Vial) 10 mg IVPUSH Q4H [facility]; Protocol Last Admin: 01/23/23 16:35 Dose: 10 mg Documented By: COOPER Hydromorphone HCl (Hydromorphone Hcl 1 Mg/Ml Syringe) 0.5 mg IVPUSH Q4H PRN; Protocol PRN Reason: Pain, Severe (Pain Scale 7-10) Last Admin: 01/22/23 17:29 Dose: 0.5 mg Documented By: COOPER Hydromorphone HCl (Hydromorphone Hcl 1 Mg/Ml Syringe) 1 mg IVPUSH Q4H PRN; Protocol PRN Reason: Pain, Severe (Pain Scale 7-10) Last Admin: 01/23/23 08:32 Dose: 1 mg Documented By: COOPER Promethazine HCl 6.25 mg/ (Sodium Chloride) 50.25 mls @ 201 mls/hr IV Q6H PRN PRN Reason: Nausea and Vomiting Last Infusion: 01/21/23 19:00 Dose: Infused Documented By: ZACKARY Heparin Sodium/Sodium Chloride (Heparin Sodium,Porcine/1/2ns) 25,000 unit in 250 mls @ 0 mls/hr IVCONT .Q0M [facility]; Protocol Insulin Human Lispro (Insulin Lispro 100 Unit/Ml 3 Ml Vial) 0 unit SUBCUT QIDACHS [facility]; Protocol Last Admin: 01/23/23 16:21 Dose: Not Given Documented By: COOPER Non-Admin Reason: See Note Losartan Potassium (Losartan Potassium 25 Mg Tablet) 25 mg PO DAILY [facility]; Protocol Last Admin: 01/23/23 07:51 Dose: Not Given Documented By: COOPER Non-Admin Reason: Patient Refused Metoprolol Tartrate (Metoprolol Tartrate 12.5 Mg Halftab) 12.5 mg PO BID [facility]; Protocol Pantoprazole Sodium (Pantoprazole Sodium 40 Mg/10 Ml Vial) 40 mg IVPUSH BID@0630,1630 [facility] Last Admin: 01/23/23 16:35 Dose: 40 mg Documented By: COOPER Sodium Chloride (0.9 % Sodium Chloride Flush 3 Ml Syringe) 3 ml IVFLUSH QSHIFT [facility] Last Admin: 01/23/23 12:49 Dose: Not Given Documented By: COOPER Non-Admin Reason: See Note Labs 01/21/23 06:04 01/23/23 10:47 Labs: Laboratory Results - last 24 hr 01/22/23 01/23/23 01/23/23 19:59 07:09 10:44 Hold Purple Top Anion Gap Estim Creat Clear Calc Estimated GFR POC Glucose 111 181 H 130 H Random Glucose Calcium Magnesium 01/23/23 01/23/23 01/23/23 10:47 11:10 16:19 Hold Purple Top SEE NOTE Anion Gap 20 Estim Creat Clear Calc 15.4 Estimated GFR 9 POC Glucose 128 H Random Glucose 129 H Calcium 9.0 Magnesium 2.8 H Assessment and Plan (1) End-stage renal disease (ESRD): Status: Acute Assessment and Plan: 32-year-old female past medical history of uncontrolled hypertension, noncompliant with medications, ESRD on dialysis not compliant, diabetes, diabetic retinopathy and neuropathy, comes into the hospital with nausea vomiting as well as hypertensive urgency -patient has had multiple admissions in the past for similar findings and presentation Hypertensive urgency/crisis/accelerated hypertension poor compliance with therapies in house. possible nstemi: ekg-inferior /lateral trop:379-292 echo last in : 35-40% ef continue asa ,statin,bb ,iv heparin drip-moniter pt/ptt protocol. ekg-less likely qtc prolong,possible rbbb. cardiology eval Acute CHF exacerbation resolved with dialysis follow clinically ESRD on dialysis - receive dialysis in-house with good response -nephrology following Intractable nausea vomiting - likely secondary to gastroparesis in the setting of diabetes - p.r.n. antiemetics - monitor symptoms Diabetes - noncompliant with medications - place on low-dose sliding scale insulin - diabetic diet Heparin subQ Full code ongoing hospitalization for IV medication to control hypertensive urgency 2nd to inability to take p.o. as welll as nstemi-need iv heaprin.cardiac workup Quality Stroke Does the patient have a stroke diagnosis?: No VTE Prior VTE?: No VTE Risk Level:: Medical - moderate - high VTE Device Contraindication: Treatment Not Indicated VTE Drug Contraindication: N/A - Med Ordered
[2023-01-23 17:30] VITALS: BMI 24.4
[2023-01-23] MEDS: Heparin Sodium,Porcine/1/2NS 25,000 UNIT/250 ML IV.SOLN 9.6 UNIT IVCONT (18:11)
[2023-01-23 18:24] LABS: PTT Heparin Drip 24.6 SEC (53-77.9)
[2023-01-23 19:30] VITALS: BP 126/65; PULSE 100; RESP 18; TEMP 36.1; O2SAT 97
[2023-01-23 22:05] LABS: Glucose, Whole Blood 194 mg/dL (60-115)
[2023-01-24] VITALS (7 sets, daily range): BP systolic 121–187; BP diastolic 66–96; PULSE 74–123; RESP 14–20; TEMP 36.4–36.9; O2SAT 96–100
[2023-01-24] MEDS: Heparin Sodium,Porcine 5,000 UNIT/ML VIAL 5500 UNIT IVPUSH (02:09)
[2023-01-24] MEDS: HYDROmorphone HCl 1 MG/ML SYRINGE IVPUSH ×5 (02:22→20:55)
[2023-01-24] MEDS: hydrALAZINE HCl 20 MG/ML VIAL 10 MG IVPUSH ×4 (02:23→20:49)
[2023-01-24] MEDS: Pantoprazole Sodium 40 MG/10 ML VIAL IVPUSH ×2 (06:24→16:07)
--- NOTE | 2023-01-24 07:00 | CA_ITS ---
Transthoracic Echocardiogram Limited Patient (Last, First, Middle): Shereen Taylor, Gender: Female Date of : 1990 Age: 32 Procedure Date: 01/24/2023 Procedure Type: Transthoracic Echocardiogram Limited Location: [facility] Height: 167.64 cm Weight: 78.02 kg BSA: 1.88 m2 Heart Rate: bpm BP: 135 / 75 mmHg Records Technician: XUAN Referring MD: Shelly SIGALA [employer] Teacher: Micky Cotton MD Symptoms: elevated trop Study Quality: Fair ECG Rhythm: Sinus tachycardia Conclusions: - Moderate LV systolic dysfunction with LVEF of 35-40% with moderate LVH and impaired relaxation filling pattern Findings Left Ventricle Normal left ventricular cavity size. There is moderately increased left ventricular wall thickness. The left ventricular systolic function is moderately decreased. The visually estimated ejection fraction is between 35 40%. Spectral Doppler is indicative of an impaired relaxation filling pattern. E/E prime ratio is between 8 and 15 consistent with indeterminate filling pressures. Pericardium/Pleural There is no evidence of pericardial effusion. Prior Study Comparison No significant change compared to prior study dated: 09/04/2022. Measurements 2D Linear Measurements IVSd: 1.52 0.6-0.9/0.6-1.0 cm LVIDd: 3.93 3.9-5.3/4.2-5.9 cm LVIDd Index: 2.09 2.4-3.2/2.2-3.1 cm/m2 LVIDs: 3.34 2.0-3.6 cm LVPWd: 1.50 0.7-1.1 cm LV Mass: 286.00 67-162/88-224 g LV Mass Index: 152.13 43-95/49-115 g/m2 2D Systolic Function EF 4C: 42.30 >55% EF 2C: 40.90 >55% EF BiP: 40.30 >55% Mitral Valve MV Pk E: 0.45 MV PK A: 0.86 MV Decel Time: 75.00 E/A: 0.50 E'Lateral: 5.44 E'Medial: 3.26 E/E' Med: 13.90 E/E' Lat: 8.30 PHT: 22.00 MVA PHT: 10.00 Decel [place]: 6.03 Diastolic Function MV Pk E: 0.45 MV Pk A: 0.86 E/A: 0.50 E'Medial: 3.26 E/E' Med: 13.90 E' Laterial: 5.44 E/E' Lat: 8.30 Right Ventricle TAPSE (mm): 18.00 Tricuspid Valve TR Pk Piet[place]: 2.13 TR Pk Grad: 18.00 RA Press: 3.00 RVSP: 21.00 Updated in Other Vendor System with Status of Final Micky Cotton MD electronically signed on 01/24/2023 3:49:35 PM with status of Final
--- NOTE | 2023-01-24 07:09 | PC.NURSE ---
pt declined EKG this am, transferred to dialysis at 0630. next scheduled PTT draw due at 0800, lab aware pt is in dialysis.
[2023-01-24 08:36] LABS: Cholesterol 192 mg/dL (<200); HDL Cholesterol 59 mg/dL (>40); LDL Cholesterol Calculated 112 mg/dL (<100); Triglycerides 109 mg/dL (<150)
[2023-01-24 08:56] LABS: Hematocrit 38.9 % (37.0-47.0); Hemoglobin 12.7 g/dl (12.0-16.0)
[2023-01-24 10:11] LABS: Glucose, Whole Blood 111 mg/dL (60-115)
--- NOTE | 2023-01-24 10:17 | PM.CNCAR ---
History of Present Illness History of Present Illness Date of Service: 01/24/23 Requesting physician: Gildardo Bess Consult reason: congestive heart failure and troponin elevation Chief complaint: intractable n/v Narrative: I was consulted to see Shereen in cardiology consultation today as she came in again with congestive heart failure related to noncompliance with dialysis and medications at home. She has intractable nausea and vomiting most likely related to gastroparesis. She has responded to medical therapy but continues to have symptoms of rapid heart rate and palpitations. Heart rate with sinus tachycardia in the 100s. She denies any clear chest pain. Her shortness of breath as improved. Her nausea and vomiting is improved. Although troponins done yesterday showed elevated troponin which are then down trending. She has EKGs which shows right bundle-branch block with diffuse T-wave inversions which could represent RV strain and/or myocardial ischemia in the LAD territory. She has known prior LV systolic dysfunction with LVEF around 35%. She is not very communicated. On discussing about the reason for noncompliance with her therapy she has no comments. Her blood pressure is not improved with re-initiation of medical therapy. She is currently undergoing dialysis blood pressure is soft in the low 100 range. Not having much shortness of breath. Review of Systems Review of Systems: Yes Other (Patient not very communicative) [facility] Past Medical History Medical History (Updated 01/24/23 @ 10:26 by Micky Cotton MD) End-stage renal disease (ESRD) Migraine ESRD on dialysis Diabetic foot ulcer associated with type 2 diabetes mellitus Chronic pain Gastroparesis Non-compliance with renal dialysis Hypertension Hypertensive emergency Diabetes ESRD needing dialysis Cardiomyopathy HFrEF (heart failure with reduced ejection fraction) Metabolic acidosis delivery delivered Anemia in chronic kidney disease (CKD) CKD (chronic kidney disease) Headache, migraine Abnormal finding on echocardiogram Elevated troponin Chest pain Acute worsening of stage 3 chronic kidney disease Generalized edema Sepsis Cellulitis Pleural effusion CHF (congestive heart failure) (~06/07/22) Tachycardia Atypical chest pain Bone infection PAD (peripheral artery disease) Severe anemia Cellulitis and abscess of foot DM foot ulcer Osteomyelitis test positive test positive Asthma Depression with anxiety Diabetic retinopathy Type 2 diabetes mellitus with hyperglycemia, with long-term current use of insulin Blind right eye Diabetes Back pain Family History Family History Mother Coronary artery disease Myocardial infarction Stroke Diabetes mellitus Father Myocardial infarction Surgical History Surgical History 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 Social History Social History Household Members: Unknown / Unable to assess Household Members Other:: Sister, [id number], nephew Housing: Unknown / Unable to assess Do you presently have visiting nurse or other home services: No (unknown) Alcohol intake: never Comment: refuses camera Patient Tobacco Use Status: Never used Tobacco e-Cigarette/Vaping Use: Never Used Second Hand Smoke Exposure: No Advance Directives Date on File: 03/08/20 service: No Current occupational status: unemployed and disabled Gender identity: Female Meds Allergies Allergy/AdvReac Type Severity Reaction Status Date / Time morphine [MORPHINE] Allergy Intermediate Itching Verified 01/20/23 18:48 azithromycin [From Zithromax] Allergy Hives Verified 01/20/23 18:48 gabapentin Allergy Facial Verified 01/20/23 18:48 Swelling tramadol Allergy Facial Verified 01/20/23 18:48 Swelling vancomycin Allergy Hives Verified 01/20/23 18:48 Active Medications: Current Medications Acetaminophen (Acetaminophen 325 Mg Tablet) 650 mg PO Q6H PRN PRN Reason: Pain, Mild (Pain Scale 1-3) Aspirin (Aspirin Enteric Coated 81 Mg Tablet.Dr) 81 mg PO DAILY [facility] Atorvastatin Calcium (Atorvastatin Calcium 40 Mg Tablet) 40 mg PO BEDTIME [facility] Last Admin: 01/23/23 22:00 Dose: Not Given Dextrose (Dextrose 50 % 25 Gm/50 Ml Syringe) 25 gm IVPUSH Q15M PRN; Protocol PRN Reason: per Hypoglycemia Standing Ord. Glucose (Glucose Gel 15 Gm Gel..Gram.) 15 gm PO Q15M PRN; Protocol PRN Reason: per Hypoglycemia Standing Ord. Heparin Sodium (Porcine) (Heparin Sodium,Porcine 5,000 Unit/Ml Vial) 2,700 unit 40 unit/kg (2700 unit) IVPUSH PROTOCOL BOLUS PRN; Protocol PRN Reason: 40 unit/kg - Heparin Protocol Heparin Sodium (Porcine) (Heparin Sodium,Porcine 5,000 Unit/Ml Vial) 5,500 unit 80 unit/kg (5500 unit) IVPUSH PROTOCOL BOLUS PRN; Protocol PRN Reason: 80 unit/kg - Heparin Protocol Last Admin: 01/24/23 02:09 Dose: 5,500 unit Hydralazine HCl (Hydralazine Hcl 20 Mg/Ml Vial) 5 mg IVPUSH Q6H PRN; Protocol PRN Reason: SBP> 180 Last Admin: 01/22/23 03:48 Dose: 5 mg Hydralazine HCl (Hydralazine Hcl 20 Mg/Ml Vial) 10 mg IVPUSH Q4H [facility]; Protocol Last Admin: 01/24/23 06:30 Dose: Not Given Hydromorphone HCl (Hydromorphone Hcl 1 Mg/Ml Syringe) 0.5 mg IVPUSH Q4H PRN; Protocol PRN Reason: Pain, Severe (Pain Scale 7-10) Last Admin: 01/22/23 17:29 Dose: 0.5 mg Hydromorphone HCl (Hydromorphone Hcl 1 Mg/Ml Syringe) 1 mg IVPUSH Q4H PRN; Protocol PRN Reason: Pain, Severe (Pain Scale 7-10) Last Admin: 01/24/23 06:24 Dose: 1 mg Promethazine HCl 6.25 mg/ (Sodium Chloride) 50.25 mls @ 201 mls/hr IV Q6H PRN PRN Reason: Nausea and Vomiting Last Infusion: 01/21/23 19:00 Dose: Infused Heparin Sodium/Sodium Chloride (Heparin Sodium,Porcine/1/2ns) 25,000 unit in 250 mls @ 0 mls/hr IVCONT .Q0M [facility]; Protocol Last Titration: 01/24/23 09:10 Dose: 0 units/kg/hr, 0 mls/hr Insulin Human Lispro (Insulin Lispro 100 Unit/Ml 3 Ml Vial) 0 unit SUBCUT QIDACHS [facility]; Protocol Last Admin: 01/23/23 22:06 Dose: Not Given Losartan Potassium (Losartan Potassium 25 Mg Tablet) 25 mg PO DAILY [facility]; Protocol Last Admin: 01/23/23 07:51 Dose: Not Given Metoprolol Tartrate (Metoprolol Tartrate 12.5 Mg Halftab) 12.5 mg PO BID [facility]; Protocol Last Admin: 01/23/23 22:00 Dose: Not Given Pantoprazole Sodium (Pantoprazole Sodium 40 Mg/10 Ml Vial) 40 mg IVPUSH BID@1108,3800 [facility] Last Admin: 01/24/23 06:24 Dose: 40 mg Sodium Chloride (0.9 % Sodium Chloride Flush 3 Ml Syringe) 3 ml IVFLUSH QSHIFT [facility] Last Admin: 01/24/23 00:00 Dose: 3 ml Physical Exam Vital Signs: Vital Signs: Last Vital Signs Temp 97.5 F 01/24/23 05:13 Pulse 104 H 01/24/23 05:13 Resp 18 01/24/23 05:13 BP 140/67 H 01/24/23 05:13 Pulse Ox 97 01/24/23 05:13 O2 Del Method Room Air 01/24/23 05:13 BMI result Body Mass Index 24.4 Const: General: comfortable, alert and awake Nutritional Appearance: average body habitus HEENT: Head: Yes normocephalic and Yes atraumatic Neck: Neck: Yes trachea midline, Yes supple and Yes no JVD Chest: Chest palpation & inspection: normal inspection of the chest Resp: Effort & Inspection: decreased respiratory effort Auscultation: no rales, no wheezes and diminished lung sounds Cardio: Jugular venous distension: no JVD Palpation: abnormal PMI displaced PMI Rate: tachycardic Rhythm: regular rhythm Heart sounds: S1 normal heart sound present, S2 normal heart sound present, no click, no gallops and no murmurs GI: Auscultation: normal bowel sounds Skin: General skin exam: no rashes or lesions noted Neuro: General: moves all extremities Extrem: General: Yes no clubbing, cyanosis or edema Objective Labs and Meds 01/24/23 08:49 01/23/23 10:47 Lab results: Laboratory Results - last 24 hr 01/23/23 01/23/23 01/23/23 10:44 10:47 11:10 Hgb Hct Hold Purple Top SEE NOTE aPTT Heparin Protocol Sodium 137 Potassium 3.8 D Chloride 96 Carbon Dioxide 25 Anion Gap 20 BUN 34 H Creatinine 5.42 H* Estim Creat Clear Calc 15.4 Estimated GFR 9 POC Glucose 130 H Random Glucose 129 H Calcium 9.0 Magnesium 2.8 H Troponin I High Sens Triglycerides Cholesterol LDL Cholesterol, Calc HDL Cholesterol 01/23/23 01/23/23 01/23/23 13:10 16:19 18:00 Hgb Hct Hold Purple Top aPTT Heparin Protocol 24.6 L Sodium Potassium Chloride Carbon Dioxide Anion Gap BUN Creatinine Estim Creat Clear Calc Estimated GFR POC Glucose 128 H Random Glucose Calcium Magnesium Troponin I High Sens 379.8 H* D 292.0 H* Triglycerides Cholesterol LDL Cholesterol, Calc HDL Cholesterol 01/23/23 01/24/23 01/24/23 22:02 01:14 08:09 Hgb Hct Hold Purple Top aPTT Heparin Protocol 28.0 L 101.0 H D Sodium Potassium Chloride Carbon Dioxide Anion Gap BUN Creatinine Estim Creat Clear Calc Estimated GFR POC Glucose 194 H Random Glucose Calcium Magnesium Troponin I High Sens Triglycerides 109 Cholesterol 192 LDL Cholesterol, Calc 112 H HDL Cholesterol 59 01/24/23 01/24/23 08:49 10:07 Hgb 12.7 Hct 38.9 Hold Purple Top aPTT Heparin Protocol Sodium Potassium Chloride Carbon Dioxide Anion Gap BUN Creatinine Estim Creat Clear Calc Estimated GFR POC Glucose 111 Random Glucose Calcium Magnesium Troponin I High Sens Triglycerides Cholesterol LDL Cholesterol, Calc HDL Cholesterol EKG shows sinus tachycardia with right bundle-branch block with diffuse ST T wave changes. QTC interval is prolonged although underlying QRS is also prolong and calculated JT interval index is 107 milliseconds which is within acceptable limits Assessment and Plan (1) Elevated troponin: Status: Acute Troponin elevation in this young woman with underlying LV systolic dysfunction with it poorly treated diabetes and noncompliance with acute hypertension. Could be subendocardial ischemia from hypertensive urgency and/or heart failure. However she has a very high likelihood of underlying obstructive coronary artery disease. She needs to be evaluated for diagnostic as well as prognostic purposes. Although treatment going be limited given her noncompliance with her usual treatment regimen. However this may guide with treatment for her and a more detailed discussion with her and her family. She needs competency and/or depression evaluation. I would maximized on metoprolol therapy to 12.5 mg q.6 hours. She also requires losartan therapy for neurohormonal modulation but if blood pressure becomes issue I would favor on the side of increasing on metoprolol therapy to help with both myocardial ischemia neurohormonal modulation. Should be on high-intensity statin therapy. Should be on aspirin therapy which she is. Continue heparin for total of 48 hours. Will schedule for inpatient myocardial perfusion imaging. Overall long-term prognosis is poor Procedures Date of Service Date of Service: 01/24/23
--- NOTE | 2023-01-24 10:29 | CA_ITS ---
Acquisition Time: 2023-01-24 11:54:39 Total Exercise Time: 00:02:00 Test Indications: ELEVATED TROP Medications: SEE EMAR Protocol: LEXISCAN Max HR: 117 BPM 62% of Pred: 186 BPM Max BP: 128/084 mmHG Max Work Load: 1.0 METS Pharmacological stress test with Lexiscan injection while laying on stretcher,w ithout anginal symptoms, without arrhythmias, with normotensive repsonse to injection, with nondiagnostic EKGs. Nuclear images pending. Test reviewed with Dr. Cotton Referred By: Micky Cotton Overread By: Lisbet Alanis
--- NOTE | 2023-01-24 10:56 | P.PNNP_ITS ---
Subjective Subjective Date of Service: 01/24/23 Interval history: seen on HD C/o nausea not giving much history Physical Exam 2 Vital Signs: Vital Signs: Last Vital Signs Temp 97.5 F 01/24/23 05:13 Pulse 104 H 01/24/23 05:13 Resp 18 01/24/23 05:13 BP 140/67 H 01/24/23 05:13 Pulse Ox 97 01/24/23 05:13 O2 Del Method Room Air 01/24/23 05:13 BMI result Body Mass Index 24.4 Const: General: comfortable, alert and awake Nutritional Appearance: a verage body habitus HEENT: Head: Yes normocephalic and Yes atraumatic Neck: Neck: Yes trachea midline, Yes supple and Yes no JVD Chest: Chest palpation & inspection: normal inspection of the chest Resp: Effort & Inspection: decreased respiratory effort Auscultation: no rales, no wheezes and diminished lung sounds Cardio: Jugular venous distension: no JVD Palpation: abnormal PMI displaced PMI Rate: tachycardic Rhythm: regular rhythm Heart sounds: S1 normal heart sound present, S2 normal heart sound present, no click, no gallops and no murmurs GI: Auscultation: normal bowel sounds Skin: General skin exam: no rashes or lesions noted Neuro: General: moves all extremities Extrem: General: Yes no clubbing, cyanosis or edema Objective Data Labs 01/24/23 08:49 01/23/23 10:47 Labs: Laboratory Results - last 24 hr 01/23/23 01/23/23 01/23/23 10:44 10:47 11:10 Hgb Hct Hold Purple Top SEE NOTE aPTT Heparin Protocol Sodium 137 Potassium 3.8 D Chloride 96 Carbon Dioxide 25 Anion Gap 20 BUN 34 H Creatinine 5.42 H* Estim Creat Clear Calc 15.4 Estimated GFR 9 POC Glucose 130 H Random Glucose 129 H Calcium 9.0 Magnesium 2.8 H Troponin I High Sens Triglycerides Cholesterol LDL Cholesterol, Calc HDL Cholesterol 01/23/23 01/23/23 01/23/23 13:10 16:19 18:00 Hgb Hct Hold Purple Top aPTT Heparin Protocol 24.6 L Sodium Potassium Chloride Carbon Dioxide Anion Gap BUN Creatinine Estim Creat Clear Calc Estimated GFR POC Glucose 128 H Random Glucose Calcium Magnesium Troponin I High Sens 379.8 H* D 292.0 H* Triglycerides Cholesterol LDL Cholesterol, Calc HDL Cholesterol 01/23/23 01/24/23 01/24/23 22:02 01:14 08:09 Hgb Hct Hold Purple Top aPTT Heparin Protocol 28.0 L 101.0 H D Sodium Potassium Chloride Carbon Dioxide Anion Gap BUN Creatinine Estim Creat Clear Calc Estimated GFR POC Glucose 194 H Random Glucose Calcium Magnesium Troponin I High Sens Triglycerides 109 Cholesterol 192 LDL Cholesterol, Calc 112 H HDL Cholesterol 59 01/24/23 01/24/23 08:49 10:07 Hgb 12.7 Hct 38.9 Hold Purple Top aPTT Heparin Protocol Sodium Potassium Chloride Carbon Dioxide Anion Gap BUN Creatinine Estim Creat Clear Calc Estimated GFR POC Glucose 111 Random Glucose Calcium Magnesium Troponin I High Sens Triglycerides Cholesterol LDL Cholesterol, Calc HDL Cholesterol Procedures Date of Service Date of Service: 01/24/23 Assessment & Plan Assessment and plan (1) End-stage renal disease (ESRD): Status: Acute (2) Hyperkalemia: Status: Acute (3) Vomiting: Status: Acute (4) Hyponatremia: Status: Acute (5) Hypertension, uncontrolled: Status: Resolved (6) ESRD on dialysis: Status: Inactive Plan Ms. Taylor has a PMHx of ESRD, T2DM, uncontrolled HTN and noncompliance with diaylsis/medications. She is admitted with HTN emergency. 1. ESRD Continue mwf dialysis ESRD diet, salt and potassium restricted 2. HTN: doing better- On Losartan- Hydralazine PRN 3. Nephrogenic anemia FE stores- OK HB os OK no needfor EPO 4. Nausea: not d/t uremia? Gastroperesis - PPI started Consider Reglan 5. CAD/ W/u as per cardiology Family meeting / PSych eval for competency Suggest [facility] as pt misses multiple HDrx Time Spent With Patient Time: Total time managing care of this patient today ____ minutes. Progress Note: Quality Stroke Does the patient have a stroke diagnosis?: No
[2023-01-24 11:17] LABS: Glucose, Whole Blood 118 mg/dL (60-115)
--- NOTE | 2023-01-24 13:46 | PC.NURSE ---
pt back from cardio stress test c/o L side MD chiqui to bedside. new order for neuro check q4 and stat head CT. pt speaking clear, stating her hand feels heavy.
--- NOTE | 2023-01-24 15:33 | MHC.CM.PN ---
EMR reviewed and per MD rounds, pt is not medically cleared for D/C due to treatment of NSTEMI, and pending psych eval. CM will continue to follow.
[2023-01-24 16:03] LABS: Glucose, Whole Blood 126 mg/dL (60-115)
[2023-01-24] MEDS: 0.9 % Sodium Chloride Flush 3 ML SYRINGE IVFLUSH ×3 (16:07→21:01)
--- NOTE | 2023-01-24 16:13 | P.CNPS_ITS ---
History of Present Illness Date of Service: 01/24/2023 Chief Complaint: intractable n/v Reason for Consult: capacity Requesting physician: Gildardo Bess Discussed with referring provider: Yes Sources of Information: patient interviewed, chart reviewed and crisis/core team assessment reviewed HPI Narrative: Ms. Taylor is a 32 year-old woman w/ complex medical hx including ESRD on dyalisis, DM, admitted due to worsening of ESRD HTN and severe nausea. Given that she has had previous medical admission for complications of ESRD due to missing dialysis or medications for unclear reasons, medical team requested capacity assessment. Pt seen in room. She appears in visible physical discomfort. She reports having some pain. She is also appears somewhat somnolent. Pt reports feeling tired and interview limited by this. She did report that she is in agreement to receive treatment and did not have any questions about her care. When asked about understanding of missing dialysis or medications, she was able to verbalize that it can be a life-threatening situation. When asked about barriers to access care outpatient, pt not able to elaborate. However, due to her feeling physically unwell, did not press on this issue. This greeting card writer also asked her about times here in the hospital when she has declined medication for symptoms that she is asking help for such as zofran for nausea, pt again not able to elaborate. [facility] Medical History (Updated 01/24/23 @ 16:40 by Xiomara Subramanian) ESRD on dialysis Migraine Diabetic foot ulcer associated with type 2 diabetes mellitus Chronic pain Gastroparesis Non-compliance with renal dialysis Hypertension Hypertensive emergency Diabetes ESRD needing dialysis Cardiomyopathy HFrEF (heart failure with reduced ejection fraction) Metabolic acidosis delivery delivered Anemia in chronic kidney disease (CKD) CKD (chronic kidney disease) Headache, migraine Abnormal finding on echocardiogram Elevated troponin Chest pain Acute worsening of stage 3 chronic kidney disease Generalized edema Sepsis Cellulitis Pleural effusion CHF (congestive heart failure) (~06/07/22) Tachycardia Atypical chest pain Bone infection PAD (peripheral artery disease) Severe anemia Cellulitis and abscess of foot DM foot ulcer Osteomyelitis test positive test positive Asthma Depression with anxiety Diabetic retinopathy Type 2 diabetes mellitus with hyperglycemia, with long-term current use of insulin Blind right eye Diabetes Back pain Surgical History 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 Diagnostics Vital Signs (24Hr): Vital Signs - 24 hr 01/23/23 19:30 01/24/23 00:00 01/24/23 02:20 Temperature 96.9 F 98.4 F Pulse Rate 100 118 H 99 Respiratory Rate 18 18 Blood Pressure 126/65 136/72 150/78 H Pulse Oximetry 97 98 Oxygen Delivery Method Room Air Room Air 01/24/23 05:13 01/24/23 11:26 01/24/23 15:54 Temperature 97.5 F 97.8 F 98.3 F Pulse Rate 104 H 112 H 123 H Respiratory Rate 18 20 16 Blood Pressure 140/67 H 187/96 H 181/94 H Pulse Oximetry 97 100 98 Oxygen Delivery Method Room Air Room Air Room Air BMI result Body Mass Index 24.4 Labs 01/24/23 08:49 01/23/23 10:47 Labs: Laboratory Results - last 48 hr 01/22/23 01/22/23 01/23/23 16:07 19:59 07:09 Hgb Hct Hold Purple Top aPTT Heparin Protocol Sodium Potassium Chloride Carbon Dioxide Anion Gap BUN Creatinine Estim Creat Clear Calc Estimated GFR POC Glucose 179 H 111 181 H Random Glucose Calcium Magnesium Troponin I High Sens Triglycerides Cholesterol LDL Cholesterol, Calc HDL Cholesterol 01/23/23 01/23/23 01/23/23 10:44 10:47 11:10 Hgb Hct Hold Purple Top SEE NOTE aPTT Heparin Protocol Sodium 137 Potassium 3.8 D Chloride 96 Carbon Dioxide 25 Anion Gap 20 BUN 34 H Creatinine 5.42 H* Estim Creat Clear Calc 15.4 Estimated GFR 9 POC Glucose 130 H Random Glucose 129 H Calcium 9.0 Magnesium 2.8 H Troponin I High Sens Triglycerides Cholesterol LDL Cholesterol, Calc HDL Cholesterol 01/23/23 01/23/23 01/23/23 13:10 16:19 18:00 Hgb Hct Hold Purple Top aPTT Heparin Protocol 24.6 L Sodium Potassium Chloride Carbon Dioxide Anion Gap BUN Creatinine Estim Creat Clear Calc Estimated GFR POC Glucose 128 H Random Glucose Calcium Magnesium Troponin I High Sens 379.8 H* D 292.0 H* Triglycerides Cholesterol LDL Cholesterol, Calc HDL Cholesterol 01/23/23 01/24/23 01/24/23 22:02 01:14 08:09 Hgb Hct Hold Purple Top aPTT Heparin Protocol 28.0 L 101.0 H D Sodium Potassium Chloride Carbon Dioxide Anion Gap BUN Creatinine Estim Creat Clear Calc Estimated GFR POC Glucose 194 H Random Glucose Calcium Magnesium Troponin I High Sens Triglycerides 109 Cholesterol 192 LDL Cholesterol, Calc 112 H HDL Cholesterol 59 01/24/23 01/24/23 01/24/23 08:49 10:07 11:09 Hgb 12.7 Hct 38.9 Hold Purple Top aPTT Heparin Protocol Sodium Potassium Chloride Carbon Dioxide Anion Gap BUN Creatinine Estim Creat Clear Calc Estimated GFR POC Glucose 111 118 H Random Glucose Calcium Magnesium Troponin I High Sens Triglycerides Cholesterol LDL Cholesterol, Calc HDL Cholesterol 01/24/23 16:00 Hgb Hct Hold Purple Top aPTT Heparin Protocol Sodium Potassium Chloride Carbon Dioxide Anion Gap BUN Creatinine Estim Creat Clear Calc Estimated GFR POC Glucose 126 H Random Glucose Calcium Magnesium Troponin I High Sens Triglycerides Cholesterol LDL Cholesterol, Calc HDL Cholesterol Imaging Radiology Impressions: ITS Impressions Chest X-Ray 01/20/23 19:34 IMPRESSION: Cardiomegaly/pleural effusion Head CT 01/24/23 14:06 IMPRESSION: 1. No evidence of acute intracranial hemorrhage or edematous territorial infarction. 2. Redemonstrated sequela of subretinal hemorrhage within the right worse than left globes. Mental Status Exam Mental Status Exam Narrative: Appearance: wearing hospital gown, fair hygiene in physical discomfort and not feeling well physically Behavior: indifferent to this greeting card writer in part due to feeling unwell Psychomotor: somnolence Speech: minimally verbal, single words, minimally spontaneous TP: single words, no derailment TC: not feeling well Mood: tired Affect: congruent, somnolent in physical discomfort SI: denies HI: none VH/AH: no signs Delusions: none Insight/judgment: fair x2 Memory/cog: alert, oriented x 3. Medications Medications Current Medications Acetaminophen (Acetaminophen 325 Mg Tablet) 650 mg PO Q6H PRN PRN Reason: Pain, Mild (Pain Scale 1-3) Aspirin (Aspirin Enteric Coated 81 Mg Tablet.) 81 mg PO DAILY [facility] Last Admin: 01/24/23 11:08 Dose: Not Given Atorvastatin Calcium (Atorvastatin Calcium 40 Mg Tablet) 40 mg PO BEDTIME [facility] Last Admin: 01/23/23 22:00 Dose: Not Given Carvedilol (Carvedilol 6.25 Mg Tablet) 6.25 mg PO BID [facility]; Protocol Last Admin: 01/24/23 14:26 Dose: Not Given Dextrose (Dextrose 50 % 25 Gm/50 Ml Syringe) 25 gm IVPUSH Q15M PRN; Protocol PRN Reason: per Hypoglycemia Standing Ord. Glucose (Glucose Gel 15 Gm Gel..Gram.) 15 gm PO Q15M PRN; Protocol PRN Reason: per Hypoglycemia Standing Ord. Heparin Sodium (Porcine) (Heparin Sodium,Porcine 5,000 Unit/Ml Vial) 2,700 unit 40 unit/kg (2700 unit) IVPUSH PROTOCOL BOLUS PRN; Protocol PRN Reason: 40 unit/kg - Heparin Protocol Heparin Sodium (Porcine) (Heparin Sodium,Porcine 5,000 Unit/Ml Vial) 5,500 unit 80 unit/kg (5500 unit) IVPUSH PROTOCOL BOLUS PRN; Protocol PRN Reason: 80 unit/kg - Heparin Protocol Last Admin: 01/24/23 02:09 Dose: 5,500 unit Hydralazine HCl (Hydralazine Hcl 20 Mg/Ml Vial) 5 mg IVPUSH Q6H PRN; Protocol PRN Reason: SBP> 180 Last Admin: 01/22/23 03:48 Dose: 5 mg Hydralazine HCl (Hydralazine Hcl 20 Mg/Ml Vial) 10 mg IVPUSH Q4H [facility]; Protocol Last Admin: 01/24/23 11:24 Dose: 10 mg Hydromorphone HCl (Hydromorphone Hcl 1 Mg/Ml Syringe) 0.5 mg IVPUSH Q4H PRN; Protocol PRN Reason: Pain, Severe (Pain Scale 7-10) Last Admin: 01/22/23 17:29 Dose: 0.5 mg Hydromorphone HCl (Hydromorphone Hcl 1 Mg/Ml Syringe) 1 mg IVPUSH Q4H PRN; Protocol PRN Reason: Pain, Severe (Pain Scale 7-10) Last Admin: 01/24/23 11:28 Dose: 1 mg Promethazine HCl 6.25 mg/ (Sodium Chloride) 50.25 mls @ 201 mls/hr IV Q6H PRN PRN Reason: Nausea and Vomiting Last Infusion: 01/21/23 19:00 Dose: Infused Heparin Sodium/Sodium Chloride (Heparin Sodium,Porcine/1/2ns) 25,000 unit in 250 mls @ 0 mls/hr IVCONT .Q0M [facility]; Protocol Last Titration: 01/24/23 10:22 Dose: 15 units/kg/hr, 10.29 mls/hr Insulin Human Lispro (Insulin Lispro 100 Unit/Ml 3 Ml Vial) 0 unit SUBCUT QIDACHS [facility]; Protocol Last Admin: 01/24/23 16:01 Dose: Not Given Losartan Potassium (Losartan Potassium 25 Mg Tablet) 25 mg PO DAILY [facility]; Protocol Last Admin: 01/24/23 11:08 Dose: Not Given Pantoprazole Sodium (Pantoprazole Sodium 40 Mg/10 Ml Vial) 40 mg IVPUSH BID@0630,1630 [facility] Last Admin: 01/24/23 06:24 Dose: 40 mg Sodium Chloride (0.9 % Sodium Chloride Flush 3 Ml Syringe) 3 ml IVFLUSH QSHIFT [facility] Last Admin: 01/24/23 10:25 Dose: Not Given Allergies Allergies Allergy/AdvReac Type Severity Reaction Status Date / Time morphine [MORPHINE] Allergy Intermediate Itching Verified 01/20/23 18:48 azithromycin [From Zithromax] Allergy Hives Verified 01/20/23 18:48 gabapentin Allergy Facial Verified 01/20/23 18:48 Swelling tramadol Allergy Facial Verified 01/20/23 18:48 Swelling vancomycin Allergy Hives Verified 01/20/23 18:48 Assessment & Plan Assessment & Plan (1) ESRD on dialysis: Status: Acute Code(s): N18.6 - End stage renal disease; Z99.2 - Dependence on renal dialysis Plan Ms. Taylor is a 32 y/o complex medical tx ESRD on dialysis, recent medical admission for exacerbation of chronic conditions due to not going to dialysis or taking medications. Pt overall appears to understand medical condition, consequences of not receiving treatment, no clear reason as to times when she has declined. She currently reports she is in agreement with treatment and recommendations. Collateral information gathered from sister, she does not report concern in terms of pt not understanding information. PLAN 1. pt does have capacity to make medical decisions at this time. Sister is involved in her care and can be involved in treatment and supporting pt. Total time managing care of this patient today ____ minutes.
--- NOTE | 2023-01-24 16:39 | P.PNIM_ITS ---
Subjective Subjective Date of Service: 01/24/23 Interval History: esrd, possible nstemi Review of Systems denies any chest pain or sob nausea slightly improving has tia like symptoms when went to stress test Physical Exam 2 Vital Signs: Vital Signs: Last Vital Signs Temp 98.3 F 01/24/23 15:54 Pulse 123 H 01/24/23 15:54 Resp 16 01/24/23 15:54 BP 181/94 H 01/24/23 15:54 Pulse Ox 98 01/24/23 15:54 O2 Del Method Room Air 01/24/23 15:54 BMI result Body Mass Index 24.4 Appearance: Alert.? Oriented X3.? cvs: rrr, [id number] , no murmur res: clear to auscultation ,no rhonchii or wheezing abd: no rebound or guarding ,nt, bs present. ext pulses present , no cyanosis . neuro: axo3 , movesall ext numbness ?face and arm left side Objective Data Active Medications Acetaminophen (Acetaminophen 325 Mg Tablet) 650 mg PO Q6H PRN PRN Reason: Pain, Mild (Pain Scale 1-3) Aspirin (Aspirin Enteric Coated 81 Mg Tablet.) 81 mg PO DAILY [facility] Last Admin: 01/24/23 11:08 Dose: Not Given Documented By: SEAN Non-Admin Reason: Patient Refused Atorvastatin Calcium (Atorvastatin Calcium 40 Mg Tablet) 40 mg PO BEDTIME [facility] Last Admin: 01/23/23 22:00 Dose: Not Given Documented By: ARDEN Non-Admin Reason: Patient Refused Carvedilol (Carvedilol 6.25 Mg Tablet) 6.25 mg PO BID [facility]; Protocol Last Admin: 01/24/23 14:26 Dose: Not Given Documented By: SEAN Non-Admin Reason: Patient Refused Dextrose (Dextrose 50 % 25 Gm/50 Ml Syringe) 25 gm IVPUSH Q15M PRN; Protocol PRN Reason: per Hypoglycemia Standing Ord. Glucose (Glucose Gel 15 Gm Gel..Gram.) 15 gm PO Q15M PRN; Protocol PRN Reason: per Hypoglycemia Standing Ord. Heparin Sodium (Porcine) (Heparin Sodium,Porcine 5,000 Unit/Ml Vial) 2,700 unit 40 unit/kg (2700 unit) IVPUSH PROTOCOL BOLUS PRN; Protocol PRN Reason: 40 unit/kg - Heparin Protocol Heparin Sodium (Porcine) (Heparin Sodium,Porcine 5,000 Unit/Ml Vial) 5,500 unit 80 unit/kg (5500 unit) IVPUSH PROTOCOL BOLUS PRN; Protocol PRN Reason: 80 unit/kg - Heparin Protocol Last Admin: 01/24/23 02:09 Dose: 5,500 unit Documented By: ARDEN Hydralazine HCl (Hydralazine Hcl 20 Mg/Ml Vial) 5 mg IVPUSH Q6H PRN; Protocol PRN Reason: SBP> 180 Last Admin: 01/22/23 03:48 Dose: 5 mg Documented By: ZACKARY Hydralazine HCl (Hydralazine Hcl 20 Mg/Ml Vial) 10 mg IVPUSH Q4H [facility]; Protocol Last Admin: 01/24/23 16:12 Dose: 10 mg Documented By: SEAN Hydromorphone HCl (Hydromorphone Hcl 1 Mg/Ml Syringe) 0.5 mg IVPUSH Q4H PRN; Protocol PRN Reason: Pain, Severe (Pain Scale 7-10) Last Admin: 01/22/23 17:29 Dose: 0.5 mg Documented By: COOPER Hydromorphone HCl (Hydromorphone Hcl 1 Mg/Ml Syringe) 1 mg IVPUSH Q4H PRN; Protocol PRN Reason: Pain, Severe (Pain Scale 7-10) Last Admin: 01/24/23 16:08 Dose: 1 mg Documented By: SEAN Promethazine HCl 6.25 mg/ (Sodium Chloride) 50.25 mls @ 201 mls/hr IV Q6H PRN PRN Reason: Nausea and Vomiting Last Infusion: 01/21/23 19:00 Dose: Infused Documented By: ZACKARY Heparin Sodium/Sodium Chloride (Heparin Sodium,Porcine/1/2ns) 25,000 unit in 250 mls @ 0 mls/hr IVCONT .Q0M [facility]; Protocol Last Titration: 01/24/23 10:22 Dose: 15 units/kg/hr, 10.29 mls/hr Documented By: SEAN Co-signed By: VIDAL Insulin Human Lispro (Insulin Lispro 100 Unit/Ml 3 Ml Vial) 0 unit SUBCUT QIDACHS [facility]; Protocol Last Admin: 01/24/23 16:01 Dose: Not Given Documented By: SEAN Non-Admin Reason: No Insulin Coverage Losartan Potassium (Losartan Potassium 25 Mg Tablet) 25 mg PO DAILY [facility]; Protocol Last Admin: 01/24/23 11:08 Dose: Not Given Documented By: SEAN Non-Admin Reason: Patient Refused Pantoprazole Sodium (Pantoprazole Sodium 40 Mg/10 Ml Vial) 40 mg IVPUSH BID@0630,1630 [facility] Last Admin: 01/24/23 16:07 Dose: 40 mg Documented By: SEAN Sodium Chloride (0.9 % Sodium Chloride Flush 3 Ml Syringe) 3 ml IVFLUSH QSHIFT [facility] Last Admin: 01/24/23 16:07 Dose: 3 ml Documented By: SEAN Labs 01/24/23 08:49 01/23/23 10:47 Labs: Laboratory Results - last 24 hr 01/23/23 01/23/23 01/24/23 18:00 22:02 01:14 aPTT Heparin Protocol 24.6 L 28.0 L POC Glucose 194 H Triglycerides Cholesterol LDL Cholesterol, Calc HDL Cholesterol 01/24/23 01/24/23 01/24/23 08:09 10:07 11:09 aPTT Heparin Protocol 101.0 H D POC Glucose 111 118 H Triglycerides 109 Cholesterol 192 LDL Cholesterol, Calc 112 H HDL Cholesterol 59 01/24/23 16:00 aPTT Heparin Protocol POC Glucose 126 H Triglycerides Cholesterol LDL Cholesterol, Calc HDL Cholesterol Assessment and Plan (1) End-stage renal disease (ESRD): Status: Acute (2) Renal failure: Status: Acute Plan 32-year-old female past medical history of uncontrolled hypertension, noncompliant with medications, ESRD on dialysis not compliant, diabetes, diabetic retinopathy and neuropathy, comes into the hospital with nausea vomiting as well as hypertensive urgency -patient has had multiple admissions in the past for similar findings and presentation Hypertensive urgency/crisis/accelerated hypertension poor compliance with therapies in house. adjusted metoprolol to coreg for better bp control,continue losartan ,also added iv hydralazine prn for bp control possible nstemi: ekg-inferior /lateral trop:[id number] echo last in : 35-40% ef continue asa ,statin,bb ,iv heparin drip-moniter pt/ptt protocol. ekg-less likely qtc prolong,possible rbbb. cardiology eval noted-continue above,patient went for stress test. Acute CHF exacerbation resolved with dialysis follow clinically ESRD on dialysis - receive dialysis in-house with good response -nephrology following Intractable nausea vomiting - likely secondary to gastroparesis in the setting of diabetes - p.r.n. antiemetics - monitor symptoms Diabetes - noncompliant with medications - place on low-dose sliding scale insulin - diabetic diet possible TIa: cotninue asa,statin,htn control Heparin subQ Full code ongoing hospitalization for IV medication -uncontrolled htn and nstemi-need iv heaprin.cardiac and neurology consulattion Quality Stroke Does the patient have a stroke diagnosis?: No VTE Prior VTE?: No VTE Risk Level:: Medical - moderate - high VTE Device Contraindication: Treatment Not Indicated VTE Drug Contraindication: N/A - Med Ordered
--- NOTE | 2023-01-24 16:42 | P.CNNE_ITS ---
History of Present Illness Data of Consult Service Date: 01/24/23 Primary Care Provider: Abdon Beard MD HPI Reason for consult: Left-sided numbness 32 years old unfortunate woman with end-stage renal disease and multiple complications. She also has hypertension and blindness related to retinal hemorrhages. This consultation was requested for left-sided numbness that she reported in her left side of face and arm. She said that her arm was heavy. There was no sign of any seizure. A CT scan of brain was done and this consultation was requested. Review of Systems 2 Review of Systems: No recent trauma fall or cold or flu-like illness PMFSH Past Medical History Medical History (Updated 01/24/23 @ 16:47 by Liv Malik MD) ESRD on dialysis Migraine Diabetic foot ulcer associated with type 2 diabetes mellitus Chronic pain Gastroparesis Non-compliance with renal dialysis Hypertension Hypertensive emergency Diabetes ESRD needing dialysis Cardiomyopathy HFrEF (heart failure with reduced ejection fraction) Metabolic acidosis delivery delivered Anemia in chronic kidney disease (CKD) CKD (chronic kidney disease) Headache, migraine Abnormal finding on echocardiogram Elevated troponin Chest pain Acute worsening of stage 3 chronic kidney disease Generalized edema Sepsis Cellulitis Pleural effusion CHF (congestive heart failure) (~06/07/22) Tachycardia Atypical chest pain Bone infection PAD (peripheral artery disease) Severe anemia Cellulitis and abscess of foot DM foot ulcer Osteomyelitis test positive test positive Asthma Depression with anxiety Diabetic retinopathy Type 2 diabetes mellitus with hyperglycemia, with long-term current use of insulin Blind right eye Diabetes Back pain Family History Family History Mother Coronary artery disease Myocardial infarction Stroke Diabetes mellitus Father Myocardial infarction Surgical History Surgical History 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 Social History Social History Household Members: Unknown / Unable to assess Household Members Other:: Sister, [id number], nephew Housing: Unknown / Unable to assess Do you presently have visiting nurse or other home services: No (unknown) Alcohol intake: never Comment: refuses camera Patient Tobacco Use Status: Never used Tobacco e-Cigarette/Vaping Use: Never Used Second Hand Smoke Exposure: No Advance Directives Date on File: 03/08/20 service: No Current occupational status: unemployed and disabled Gender identity: Female Meds Allergies Allergy/AdvReac Type Severity Reaction Status Date / Time morphine [MORPHINE] Allergy Intermediate Itching Verified 01/20/23 18:48 azithromycin [From Zithromax] Allergy Hives Verified 01/20/23 18:48 gabapentin Allergy Facial Verified 01/20/23 18:48 Swelling tramadol Allergy Facial Verified 01/20/23 18:48 Swelling vancomycin Allergy Hives Verified 01/20/23 18:48 Active Medications: Current Medications Acetaminophen (Acetaminophen 325 Mg Tablet) 650 mg PO Q6H PRN PRN Reason: Pain, Mild (Pain Scale 1-3) Aspirin (Aspirin Enteric Coated 81 Mg Tablet.Dr) 81 mg PO DAILY COUNT INCLUDES [facility] Last Admin: 01/24/23 11:08 Dose: Not Given Atorvastatin Calcium (Atorvastatin Calcium 40 Mg Tablet) 40 mg PO BEDTIME COUNT INCLUDES THE [facility] Last Admin: 01/23/23 22:00 Dose: Not Given Carvedilol (Carvedilol 6.25 Mg Tablet) 6.25 mg PO BID COUNT INCLUDES THE [facility]; Protocol Last Admin: 01/24/23 14:26 Dose: Not Given Dextrose (Dextrose 50 % 25 Gm/50 Ml Syringe) 25 gm IVPUSH Q15M PRN; Protocol PRN Reason: per Hypoglycemia Standing Ord. Glucose (Glucose Gel 15 Gm Gel..Gram.) 15 gm PO Q15M PRN; Protocol PRN Reason: per Hypoglycemia Standing Ord. Heparin Sodium (Porcine) (Heparin Sodium,Porcine 5,000 Unit/Ml Vial) 2,700 unit 40 unit/kg (2700 unit) IVPUSH PROTOCOL BOLUS PRN; Protocol PRN Reason: 40 unit/kg - Heparin Protocol Heparin Sodium (Porcine) (Heparin Sodium,Porcine 5,000 Unit/Ml Vial) 5,500 unit 80 unit/kg (5500 unit) IVPUSH PROTOCOL BOLUS PRN; Protocol PRN Reason: 80 unit/kg - Heparin Protocol Last Admin: 01/24/23 02:09 Dose: 5,500 unit Hydralazine HCl (Hydralazine Hcl 20 Mg/Ml Vial) 5 mg IVPUSH Q6H PRN; Protocol PRN Reason: SBP> 180 Last Admin: 01/22/23 03:48 Dose: 5 mg Hydralazine HCl (Hydralazine Hcl 20 Mg/Ml Vial) 10 mg IVPUSH Q4H COUNT INCLUDES THE [facility]; Protocol Last Admin: 01/24/23 16:12 Dose: 10 mg Hydromorphone HCl (Hydromorphone Hcl 1 Mg/Ml Syringe) 0.5 mg IVPUSH Q4H PRN; Protocol PRN Reason: Pain, Severe (Pain Scale 7-10) Last Admin: 01/22/23 17:29 Dose: 0.5 mg Hydromorphone HCl (Hydromorphone Hcl 1 Mg/Ml Syringe) 1 mg IVPUSH Q4H PRN; Protocol PRN Reason: Pain, Severe (Pain Scale 7-10) Last Admin: 01/24/23 16:08 Dose: 1 mg Promethazine HCl 6.25 mg/ (Sodium Chloride) 50.25 mls @ 201 mls/hr IV Q6H PRN PRN Reason: Nausea and Vomiting Last Infusion: 01/21/23 19:00 Dose: Infused Heparin Sodium/Sodium Chloride (Heparin Sodium,Porcine/1/2ns) 25,000 unit in 250 mls @ 0 mls/hr IVCONT .Q0M COUNT INCLUDES THE [facility]; Protocol Last Titration: 01/24/23 10:22 Dose: 15 units/kg/hr, 10.29 mls/hr Insulin Human Lispro (Insulin Lispro 100 Unit/Ml 3 Ml Vial) 0 unit SUBCUT QIDACHS COUNT INCLUDES THE [facility]; Protocol Last Admin: 01/24/23 16:01 Dose: Not Given Losartan Potassium (Losartan Potassium 25 Mg Tablet) 25 mg PO DAILY COUNT INCLUDES THE [facility]; Protocol Last Admin: 01/24/23 11:08 Dose: Not Given Pantoprazole Sodium (Pantoprazole Sodium 40 Mg/10 Ml Vial) 40 mg IVPUSH BID@0630,1630 COUNT INCLUDES THE [facility] Last Admin: 01/24/23 16:07 Dose: 40 mg Sodium Chloride (0.9 % Sodium Chloride Flush 3 Ml Syringe) 3 ml IVFLUSH QSHIFT COUNT INCLUDES THE [facility] Last Admin: 01/24/23 16:07 Dose: 3 ml Physical Exam 2 Vital Signs: Vital Signs: Last Vital Signs Temp 98.3 F 01/24/23 15:54 Pulse 123 H 01/24/23 15:54 Resp 16 01/24/23 15:54 BP 181/94 H 01/24/23 15:54 Pulse Ox 98 01/24/23 15:54 O2 Del Method Room Air 01/24/23 15:54 BMI result Body Mass Index 24.4 Neuro: Other: She is alert and awake with normal spontaneity of speech fluency comprehension and depressed affect. Right eye is opaque. Left pupil is round reactive. Face seems symmetrical. She was able to use a right hand but when I asked to show me 2 fingers with left hand she did but slowly. He was not lifting her left arm up against gravity. She was also partly flexed and resistant to examination. Toes were missing while she was able to move her feet. Deep tendon reflexes were absent. Results Labs 01/24/23 08:49 01/23/23 10:47 Labs: Short CBC 01/24/23 Range/Units 08:49 Hgb 12.7 (12.0-16.0) g/dl Hct 38.9 (37.0-47.0) % Noncontrast head CT revealed mild microvascular ischemic disease. MRI of brain done earlier in the year also reveals same pathology including some in brainstem. Assessment and Plan (1) Cerebral infarction: Qualifiers: Cerebral infarction mechanism: thrombosis Precerebral and cerebral artery: unspecified cerebral artery Qualified Code(s): I63.30 - Cerebral infarction due to thrombosis of unspecified cerebral artery Status: Acute Plan 32 years old woman with uncontrolled hypertension, end-stage renal disease, and multiple complications including retinal hemorrhages in blindness. Her previous brain scans have revealed [id number] chronic microvascular ischemic changes not unusual for this type of patient. She probably had another event in right hemisphere. Mainstay of management is blood pressure control, anti- platelet agent if that could be given and control of other vascular risk factors. PT OT consultation is also recommended. If possible obtain a noncontrast MRI of brain to define pathology. Procedures Date of Service Date of Service: 01/24/23
[2023-01-24 17:29] LABS: PTT Heparin Drip 42.6 SEC (53-77.9)
[2023-01-24] MEDS: Heparin Sodium,Porcine 5,000 UNIT/ML VIAL 2700 UNIT IVPUSH (17:48)
[2023-01-24] MEDS: Heparin Sodium,Porcine/1/2NS 25,000 UNIT/250 ML IV.SOLN 10.29 UNIT IVCONT (17:48)
[2023-01-24 20:20] LABS: Glucose, Whole Blood 221 mg/dL (60-115)
[2023-01-24] MEDS: Atorvastatin Calcium 40 MG TABLET PO (20:50)
[2023-01-24] MEDS: carvediloL 6.25 MG TABLET PO (20:50)
--- NOTE | 2023-01-24 20:53 | PC.NURSE ---
pt had taken po meds this evening, immediately after swallowing vomited x 1 mod amt.
[2023-01-24] MEDS: Insulin Lispro 100 UNIT/ML 3 ML VIAL SUBCUT (20:59)
[2023-01-25 00:21] LABS: PTT Heparin Drip 76.8 SEC (53-77.9)
[2023-01-25] MEDS: HYDROmorphone HCl 1 MG/ML SYRINGE IVPUSH ×5 (01:55→21:45)
[2023-01-25] MEDS: hydrALAZINE HCl 20 MG/ML VIAL 10 MG IVPUSH ×6 (01:55→21:45)
[2023-01-25 03:18] VITALS: BP 115/59; PULSE 68; RESP 18; TEMP 36.6; O2SAT 97
[2023-01-25] MEDS: Pantoprazole Sodium 40 MG/10 ML VIAL IVPUSH ×2 (06:14→16:03)
--- NOTE | 2023-01-25 06:50 | PC.NURSE ---
pt declined EKG at this time, would prefer it done later in the am.
--- NOTE | 2023-01-25 06:59 | PC.NURSE ---
spoke with pharmacist who wished to verify rate of heparin gtt. Pharmacist informed that at 1900 report given that gtt infusing at 17 U/kg/hr, which has remained the infusing rate throughout the shift. PTT drawn at 0000 76.8 with no rate change next PTT draw due at 0600.
[2023-01-25 07:45] VITALS: BP 123/60; PULSE 90; RESP 16; TEMP 36.3; O2SAT 98
[2023-01-25 07:51] LABS: PTT Heparin Drip 45.1 SEC (53-77.9)
[2023-01-25 08:04] LABS: Glucose, Whole Blood 157 mg/dL (60-115)
[2023-01-25] MEDS: Heparin Sodium,Porcine 5,000 UNIT/ML VIAL 2700 UNIT IVPUSH (08:05)
[2023-01-25] MEDS: 0.9 % Sodium Chloride Flush 3 ML SYRINGE IVFLUSH ×2 (08:11→16:04)
--- NOTE | 2023-01-25 10:16 | P.PNNP_ITS ---
Subjective Subjective Date of Service: 01/25/23 Interval history: esrd, sleepy Physical Exam 2 Vital Signs: Vital Signs: Last Vital Signs Temp 97.3 F 01/25/23 07:45 Pulse 90 01/25/23 07:45 Resp 16 01/25/23 07:45 BP 123/60 01/25/23 07:45 Pulse Ox 98 01/25/23 07:45 O2 Del Method Room Air 01/25/23 07:45 BMI result Body Mass Index 24.4 Neuro: Other: She is alert and awake with normal spontaneity of speech fluency comprehension and depressed affect. Right eye is opaque. Left pupil is round reactive. Face seems symmetrical. She was able to use a right hand but when I asked to show me 2 fingers with left hand she did but slowly. He was not lifting her left arm up against gravity. She was also partly flexed and resistant to examination. Toes were missing while she was able to move her feet. Deep tendon reflexes were absent. Objective Data Labs 01/24/23 08:49 01/23/23 10:47 Labs: Laboratory Results - last 24 hr 01/24/23 01/24/23 01/24/23 11:09 16:00 16:59 Hold Purple Top aPTT Heparin Protocol 42.6 L D POC Glucose 118 H 126 H 01/24/23 01/25/23 01/25/23 20:10 00:00 06:39 Hold Purple Top SEE NOTE aPTT Heparin Protocol 76.8 D 45.1 L D POC Glucose 221 H 01/25/23 07:46 Hold Purple Top aPTT Heparin Protocol POC Glucose 157 H Procedures Date of Service Date of Service: 01/25/23 Assessment & Plan Assessment and plan (1) End-stage renal disease (ESRD): Status: Acute (2) Hyperkalemia: Status: Acute (3) Vomiting: Status: Acute (4) Hyponatremia: Status: Acute (5) Hypertension, uncontrolled: Status: Resolved (6) ESRD on dialysis: Status: Acute Plan Ms. Taylor has a PMHx of ESRD, T2DM, uncontrolled HTN and noncompliance with diaylsis/medications. She is admitted with HTN emergency. 1. ESRD Continue mwf dialysis ESRD diet, salt and potassium restricted 2. HTN: doing better- On Losartan- Hydralazine PRN 3. Nephrogenic anemia FE stores- OK HB os OK no needfor EPO 4. Nausea: not d/t uremia? Gastroperesis - PPI started Consider Reglan 5. CAD/ W/u as per cardiology Family meeting / PSych eval for competency Suggest [facility] as pt misses multiple HDrx Time Spent With Patient Time: Total time managing care of this patient today ____ minutes. Progress Note: Quality Stroke Does the patient have a stroke diagnosis?: No
--- NOTE | 2023-01-25 10:46 | PM.PNCARD ---
Subjective Subjective Date of Service: 01/25/23 Principal diagnosis: Cardiomyopathy Interval history: Patient developed some numbness after stress test yesterday. CT head was negative. Denies any complaints. Resting comfortably. Denies any shortness of breath chest pain. Blood pressure is stable. Heart rate is stable. Review of Systems Constitutional: Reports no additional constitutional complaints Physical Exam Vital Signs: Last Vital Signs Temp 97.3 F 01/25/23 07:45 Pulse 90 01/25/23 07:45 Resp 16 01/25/23 07:45 BP 123/60 01/25/23 07:45 Pulse Ox 98 01/25/23 07:45 O2 Del Method Room Air 01/25/23 07:45 BMI result Body Mass Index 24.4 Const General: comfortable, alert and awake Nutritional Appearance: average body habitus HEENT Head: Yes normocephalic and Yes atraumatic Neck Neck: Yes trachea midline, Yes supple and Yes no JVD Chest Chest palpation & inspection: normal inspection of the chest Resp Effort & Inspection: decreased respiratory effort Auscultation: no rales, no wheezes and diminished lung sounds Cardio Jugular venous distension: no JVD Palpation: abnormal PMI displaced PMI Rate: tachycardic Rhythm: regular rhythm Heart sounds: S1 normal heart sound present, S2 normal heart sound present, no click, no gallops and no murmurs GI Auscultation: normal bowel sounds Skin General skin exam: no rashes or lesions noted Neuro General: moves all extremities Extrem General: Yes no clubbing, cyanosis or edema Objective Labs and Meds 01/24/23 08:49 01/23/23 10:47 Lab results: Laboratory Results - last 24 hr 01/24/23 01/24/23 01/24/23 11:09 16:00 16:59 Hold Purple Top aPTT Heparin Protocol 42.6 L D POC Glucose 118 H 126 H 01/24/23 01/25/23 01/25/23 20:10 00:00 06:39 Hold Purple Top SEE NOTE aPTT Heparin Protocol 76.8 D 45.1 L D POC Glucose 221 H 01/25/23 07:46 Hold Purple Top aPTT Heparin Protocol POC Glucose 157 H Imaging Radiologist's impression: Impressions Head CT 01/24/23 14:06 IMPRESSION: 1. No evidence of acute intracranial hemorrhage or edematous territorial infarction. 2. Redemonstrated sequela of subretinal hemorrhage within the right worse than left globes. Progress Note: A&P Assessment and plan (1) HFrEF (heart failure with reduced ejection fraction): Status: Acute Assessment and Plan: Heart failure with reduced ejection fraction with LV systolic dysfunction of unclear etiology. High likelihood of underlying coronary artery disease. Awaiting results of myocardial perfusion imaging. Continue carvedilol and losartan therapy. Also admissions are related to noncompliance however related to noncompliance with dialysis as well as medical therapy and admission with hypertensive urgency. Blood pressure is well optimized on current therapy. Importance of compliance with medication was discussed with her. She nodded her head but was not very communicated. Not sure she will follow through. Further treatment based on the findings of the stress test. Time Spent With Patient Time: Total time managing care of this patient today ____ minutes. Progress Note: Quality Stroke Does the patient have a stroke diagnosis?: No Procedures Date of Service Date of Service: 01/25/23
[2023-01-25 11:23] VITALS: BP 149/86; PULSE 97; RESP 18; TEMP 36.2; O2SAT 98
[2023-01-25 11:26] LABS: Glucose, Whole Blood 200 mg/dL (60-115)
--- NOTE | 2023-01-25 13:16 | PC.NURSE ---
received report from overnight nurse Genevieve, it was mentioned by the nurse that the patient refused her daily EKG 01/25/23.
[2023-01-25 14:25] LABS: PTT Heparin Drip 67.2 SEC (53-77.9)
--- NOTE | 2023-01-25 15:13 | P.PNIM_ITS ---
Subjective Subjective Date of Service: 01/25/23 Interval History: esrd, possible nstemi Review of Systems More awake today, denies any chest pain or shortness of breath ,she is more talkative today Says vomited improved, still has nausea Numbness of the face and the arm also says improved. Physical Exam 2 Vital Signs: Vital Signs: Last Vital Signs Temp 97.1 F 01/25/23 11:23 Pulse 97 01/25/23 11:23 Resp 18 01/25/23 11:23 BP 149/86 H 01/25/23 11:23 Pulse Ox 98 01/25/23 11:23 O2 Del Method Room Air 01/25/23 11:23 BMI result Body Mass Index 24.4 Appearance: Alert.? Oriented X3.? cvs: rrr, [id number] , no murmur res: clear to auscultation ,no rhonchii or wheezing abd: no rebound or guarding ,nt, bs present. ext pulses present , no cyanosis . neuro: axo3 , movesall ext Objective Data Active Medications Acetaminophen (Acetaminophen 325 Mg Tablet) 650 mg PO Q6H PRN PRN Reason: Pain, Mild (Pain Scale 1-3) Aspirin (Aspirin Enteric Coated 81 Mg Tablet.) 81 mg PO DAILY [facility] Last Admin: 01/25/23 08:11 Dose: Not Given Documented By: CHET Non-Admin Reason: Patient Refused Atorvastatin Calcium (Atorvastatin Calcium 40 Mg Tablet) 40 mg PO BEDTIME [facility] Last Admin: 01/24/23 20:50 Dose: 40 mg Documented By: ARDEN Carvedilol (Carvedilol 6.25 Mg Tablet) 6.25 mg PO BID [facility]; Protocol Last Admin: 01/25/23 08:11 Dose: Not Given Documented By: CHET Non-Admin Reason: Patient Refused Dextrose (Dextrose 50 % 25 Gm/50 Ml Syringe) 25 gm IVPUSH Q15M PRN; Protocol PRN Reason: per Hypoglycemia Standing Ord. Glucose (Glucose Gel 15 Gm Gel..Gram.) 15 gm PO Q15M PRN; Protocol PRN Reason: per Hypoglycemia Standing Ord. Heparin Sodium (Porcine) (Heparin Sodium,Porcine 5,000 Unit/Ml Vial) 2,700 unit 40 unit/kg (2700 unit) IVPUSH PROTOCOL BOLUS PRN; Protocol PRN Reason: 40 unit/kg - Heparin Protocol Last Admin: 01/25/23 08:05 Dose: 2,700 unit Documented By: CHET Heparin Sodium (Porcine) (Heparin Sodium,Porcine 5,000 Unit/Ml Vial) 5,500 unit 80 unit/kg (5500 unit) IVPUSH PROTOCOL BOLUS PRN; Protocol PRN Reason: 80 unit/kg - Heparin Protocol Last Admin: 01/24/23 02:09 Dose: 5,500 unit Documented By: ARDEN Hydralazine HCl (Hydralazine Hcl 20 Mg/Ml Vial) 10 mg IVPUSH Q4H [facility]; Protocol Last Admin: 01/25/23 11:38 Dose: 10 mg Documented By: CHET Hydromorphone HCl (Hydromorphone Hcl 1 Mg/Ml Syringe) 0.5 mg IVPUSH Q4H PRN; Protocol PRN Reason: Pain, Severe (Pain Scale 7-10) Last Admin: 01/22/23 17:29 Dose: 0.5 mg Documented By: COOPER Hydromorphone HCl (Hydromorphone Hcl 1 Mg/Ml Syringe) 1 mg IVPUSH Q4H PRN; Protocol PRN Reason: Pain, Severe (Pain Scale 7-10) Last Admin: 01/25/23 11:38 Dose: 1 mg Documented By: CHET Promethazine HCl 6.25 mg/ (Sodium Chloride) 50.25 mls @ 201 mls/hr IV Q6H PRN PRN Reason: Nausea and Vomiting Last Infusion: 01/21/23 19:00 Dose: Infused Documented By: ZACKARY Heparin Sodium/Sodium Chloride (Heparin Sodium,Porcine/1/2ns) 25,000 unit in 250 mls @ 0 mls/hr IVCONT .Q0M [facility]; Protocol Last Titration: 01/25/23 15:04 Dose: 19 units/kg/hr, 13.03 mls/hr Documented By: CHET Co-signed By: SUSAN Insulin Human Lispro (Insulin Lispro 100 Unit/Ml 3 Ml Vial) 0 unit SUBCUT QIDACHS [facility]; Protocol Last Admin: 01/25/23 11:28 Dose: Not Given Documented By: CHET Non-Admin Reason: Patient Refused Losartan Potassium (Losartan Potassium 25 Mg Tablet) 25 mg PO DAILY [facility]; Protocol Last Admin: 01/25/23 08:12 Dose: Not Given Documented By: CHET Non-Admin Reason: Patient Refused Pantoprazole Sodium (Pantoprazole Sodium 40 Mg/10 Ml Vial) 40 mg IVPUSH BID@0630,1630 [facility] Last Admin: 01/25/23 06:14 Dose: 40 mg Documented By: ARDEN Sodium Chloride (0.9 % Sodium Chloride Flush 3 Ml Syringe) 3 ml IVFLUSH QSHIFT [facility] Last Admin: 01/25/23 08:11 Dose: 3 ml Documented By: CHET Labs 01/24/23 08:49 01/23/23 10:47 Labs: Laboratory Results - last 24 hr 01/24/23 01/24/23 01/24/23 16:00 16:59 20:10 Hold Purple Top aPTT Heparin Protocol 42.6 L D POC Glucose 126 H 221 H 01/25/23 01/25/23 01/25/23 00:00 06:39 07:46 Hold Purple Top SEE NOTE aPTT Heparin Protocol 76.8 D 45.1 L D POC Glucose 157 H 01/25/23 01/25/23 11:11 14:06 Hold Purple Top aPTT Heparin Protocol 67.2 D POC Glucose 200 H Assessment and Plan (1) Elevated troponin: Status: Acute (2) End-stage renal disease (ESRD): Status: Acute Plan 32-year-old female past medical history of uncontrolled hypertension, noncompliant with medications, ESRD on dialysis not compliant, diabetes, diabetic retinopathy and neuropathy, comes into the hospital with nausea vomiting as well as hypertensive urgency -patient has had multiple admissions in the past for similar findings and presentation Hypertensive uncontrolled : poor compliance with therapies in house. continue coreg for better bp control,continue losartan ,also added iv hydralazine prn for bp control possible nstemi: ekg-inferior /lateral trop:[id number] echo last in : 35-40% ef continue asa ,statin,bb ,iv heparin drip-moniter pt/ptt protocol. ekg-less likely qtc prolong,possible rbbb. cardiology eval noted-continue above,stress test done -pendin Acute CHF exacerbation resolved with dialysis follow clinically ESRD on dialysis - receive dialysis in-house with good response -nephrology following Intractable nausea vomiting - likely secondary to gastroparesis in the setting of diabetes - p.r.n. antiemetics - monitor symptoms Diabetes - noncompliant with medications - place on low-dose sliding scale insulin - diabetic diet possible TIa: ct head neg mri added neurology eval noted-cotninue asa,statin,htn control Heparin subQ Full code ongoing hospitalization for IV medication -uncontrolled htn and nstemi-need iv heaprin.cardiac workup Quality Stroke Does the patient have a stroke diagnosis?: No VTE Prior VTE?: No VTE Risk Level:: Medical - moderate - high VTE Device Contraindication: Treatment Not Indicated VTE Drug Contraindication: N/A - Med Ordered
[2023-01-25 15:24] VITALS: BP 153/85; PULSE 99; RESP 18; TEMP 36.6; O2SAT 98
[2023-01-25] MEDS: Heparin Sodium,Porcine/1/2NS 25,000 UNIT/250 ML IV.SOLN 13.03 UNIT IVCONT (16:03)
[2023-01-25 16:36] LABS: Glucose, Whole Blood 274 mg/dL (60-115)
[2023-01-25 19:40] VITALS: BP 176/74; PULSE 99; RESP 18; TEMP 36.5; O2SAT 98
[2023-01-25 20:59] LABS: Glucose, Whole Blood 179 mg/dL (60-115)
[2023-01-26] MEDS: HYDROmorphone HCl 1 MG/ML SYRINGE IVPUSH ×4 (02:22→22:58)
[2023-01-26] MEDS: 0.9 % Sodium Chloride Flush 3 ML SYRINGE IVFLUSH ×3 (02:34→22:17)
[2023-01-26 03:22] LABS: PTT Heparin Drip 89.2 SEC (53-77.9)
[2023-01-26 04:00] VITALS: BP 178/82; PULSE 101; RESP 18; TEMP 36.3; O2SAT 98
[2023-01-26] MEDS: Pantoprazole Sodium 40 MG/10 ML VIAL IVPUSH ×2 (06:27→18:01)
[2023-01-26] MEDS: hydrALAZINE HCl 20 MG/ML VIAL 10 MG IVPUSH ×4 (06:28→22:17)
[2023-01-26 07:18] VITALS: BP 136/87; PULSE 95; RESP 18; TEMP 36.4; O2SAT 98
[2023-01-26 07:37] LABS: Glucose, Whole Blood 143 mg/dL (60-115)
[2023-01-26 09:45] LABS: PTT Heparin Drip 29.2 SEC (53-77.9)
[2023-01-26 09:56] LABS: Anion Gap 16 (12-20); Blood Urea Nitrogen 40 mg/dL (9-16); Calcium 8.6 mg/dL (8.4-10.2); Carbon Dioxide 24 mmol/L (22-29); Chloride 96 mmol/L (96-108); Creatinine Clr Calc Pharmacy 11.7; Estimated Glomerular Filt Rate 8; Glucose Random 191 mg/dL (60-115); Potassium 3.8 mmol/L (3.3-5.1); Sodium 132 mmol/L (135-145)
--- NOTE | 2023-01-26 10:51 | PM.PNCARD ---
Subjective Subjective Date of Service: 01/26/23 Principal diagnosis: Cardiomyopathy Interval history: Patient status post myocardial perfusion imaging which shows low risk. No significant ischemic burden to suggest her LV systolic dysfunction. Denies any cardiac symptoms. Complains of nausea and not feeling well. Refused her dialysis today. Review of Systems Constitutional: Reports lethargy and Reports poor appetite Cardiovascular: Reports no additional cardiovascular complaints Gastrointestinal: Reports nausea Physical Exam Vital Signs: Last Vital Signs Temp 97.6 F 01/26/23 07:18 Pulse 95 01/26/23 07:18 Resp 18 01/26/23 07:18 BP 136/87 01/26/23 07:18 Pulse Ox 98 01/26/23 07:18 O2 Del Method Room Air 01/26/23 07:18 BMI result Body Mass Index 24.4 Const General: cooperative, comfortable, no acute distress, alert and awake Nutritional Appearance: average body habitus Neck Neck: Yes trachea midline, Yes supple and Yes no JVD Resp Effort & Inspection: decreased respiratory effort Auscultation: clear to auscultation bilaterally Cardio Jugular venous distension: no JVD Rate: regular rate Rhythm: regular rhythm Heart sounds: S1 normal heart sound present, S2 normal heart sound present, no click, no gallops and no murmurs Neuro General: no focal motor deficits Objective Labs and Meds 01/26/23 09:30 01/26/23 09:30 Lab results: Laboratory Results - last 24 hr 01/25/23 01/25/23 01/25/23 11:11 14:06 16:31 Hgb Hct aPTT Heparin Protocol 67.2 D Sodium Potassium Chloride Carbon Dioxide Anion Gap BUN Creatinine Estim Creat Clear Calc Estimated GFR POC Glucose 200 H 274 H Random Glucose Calcium 01/25/23 01/25/23 01/26/23 20:34 21:03 03:06 Hgb Hct aPTT Heparin Protocol 87.0 H D 89.2 H Sodium Potassium Chloride Carbon Dioxide Anion Gap BUN Creatinine Estim Creat Clear Calc Estimated GFR POC Glucose 179 H Random Glucose Calcium 01/26/23 01/26/23 07:25 09:30 Hgb 13.0 Hct 40.0 aPTT Heparin Protocol 29.2 L D Sodium 132 L Potassium 3.8 Chloride 96 Carbon Dioxide 24 Anion Gap 16 BUN 40 H Creatinine 6.30 H* Estim Creat Clear Calc 11.7 Estimated GFR 8 POC Glucose 143 H Random Glucose 191 H Calcium 8.6 Imaging Radiologist's impression: Impressions Myocardial Perfusion Scan Nuc Med 01/25/23 13:00 Impression: 1. Myocardial perfusion imaging study shows mild ischemia versus artifact in the mid anteroseptal wall. Likely diaphragmatic attenuation artifact causing reversible basal inferior wall defect. 2. Gated LVEF is 39% during stress and 38% during rest. 3. Transient ischemic dilatation not present. EKG component of the test reported separately. Progress Note: A&P Assessment and plan (1) HFrEF (heart failure with reduced ejection fraction): Status: Acute Assessment and Plan: Patient with moderate LV systolic dysfunction with cardiomyopathy with myocardial perfusion imaging showing no high risk features suggestive multivessel coronary artery disease. Likely that this represents diabetic/hypertensive cardiomyopathy. Importance of compliance with medication and therapeutic interventions with dialysis was discussed with the patient details. Continue current other heart failure medications. Continue dialysis intermittently. Avoidance of salt loading was discussed. Will sign of the case. Thank you for allowing me to partake in her care Time Spent With Patient Time: Total time managing care of this patient today ____ minutes. Progress Note: Quality Stroke Does the patient have a stroke diagnosis?: No Procedures Date of Service Date of Service: 01/26/23
[2023-01-26 11:11] VITALS: BP 137/78; PULSE 100; RESP 18; TEMP 36.7; O2SAT 98
[2023-01-26] MEDS: ondansetron HCL 4 MG/2 ML VIAL IVPUSH (11:20)
[2023-01-26 11:26] LABS: Glucose, Whole Blood 172 mg/dL (60-115)
--- NOTE | 2023-01-26 12:47 | MHC.CLN ---
NUTRITION CONSULT FOR DECREASED INTAKE. PATIENT WITH RECENT VOMITING AND NAUSEA RESULTING IN DECREASED PO INTAKE. PO 0-25%. DIET=DIABETIC 1800 KCALS, LOW POTASSIUM. ADDING GELATEIN SUPPLEMENT BID. PRODUCT IS NO FAT, LOW SODIUM, LOW POTASSIUM, AND LOW PHOSPHORUS. PROVIDES 320 KCALS, 40 G PROTEIN. PATIENT WITH ESRD AND RECEIVES HEMODIALYSIS. RD TO MONITOR PO INTAKE.
--- NOTE | 2023-01-26 14:02 | P.PNNP_ITS ---
Subjective Subjective Date of Service: 01/26/23 Principal diagnosis: Cardiomyopathy Interval history: Evaluated on HD Unhappy. Physical Exam 2 Vital Signs: Vital Signs: Last Vital Signs Temp 98.1 F 01/26/23 11:11 Pulse 100 01/26/23 11:11 Resp 18 01/26/23 11:11 BP 137/78 01/26/23 11:11 Pulse Ox 98 01/26/23 11:11 O2 Del Method Room Air 01/26/23 11:11 BMI result Body Mass Index 24.4 Const: Other: Awake alert visibly uncomfortable Resp: Other: Clear to auscultation bilaterally no rales rhonchi or wheezes Cardio: Other: No S4; positive S1-S2; no S3 murmurs rubs or gallops GI: Other: Soft nontender nondistended normoactive bowel sounds Extrem: Other: No edema bilaterally Objective Data Labs 01/26/23 09:30 01/26/23 09:30 Labs: Laboratory Results - last 24 hr 01/25/23 01/25/23 01/25/23 14:06 16:31 20:34 Hgb Hct aPTT Heparin Protocol 67.2 D Sodium Potassium Chloride Carbon Dioxide Anion Gap BUN Creatinine Estim Creat Clear Calc Estimated GFR POC Glucose 274 H 179 H Random Glucose Calcium 01/25/23 01/26/23 01/26/23 21:03 03:06 07:25 Hgb Hct aPTT Heparin Protocol 87.0 H D 89.2 H Sodium Potassium Chloride Carbon Dioxide Anion Gap BUN Creatinine Estim Creat Clear Calc Estimated GFR POC Glucose 143 H Random Glucose Calcium 01/26/23 01/26/23 09:30 11:13 Hgb 13.0 Hct 40.0 aPTT Heparin Protocol 29.2 L D Sodium 132 L Potassium 3.8 Chloride 96 Carbon Dioxide 24 Anion Gap 16 BUN 40 H Creatinine 6.30 H* Estim Creat Clear Calc 11.7 Estimated GFR 8 POC Glucose 172 H Random Glucose 191 H Calcium 8.6 Procedures Date of Service Date of Service: 01/26/23 Assessment & Plan Assessment and plan (1) End-stage renal disease (ESRD): Status: Acute (2) Hyperkalemia: Status: Acute (3) Vomiting: Status: Acute (4) Hyponatremia: Status: Acute (5) Hypertension, uncontrolled: Status: Resolved (6) ESRD on dialysis: Status: Acute Plan Ms. Taylor has a PMHx of ESRD, T2DM, uncontrolled HTN and noncompliance with diaylsis/medications. She is admitted with HTN emergency. 1. ESRD Continue mwf dialysis ESRD diet, salt and potassium restricted 2. HTN: doing better- On Losartan- Hydralazine PRN 3. Nephrogenic anemia FE stores- OK HB is OK no need for EPO 4. Nausea: Unlikely uremia related. Patient is well dialyzed now Time Spent With Patient Time: Total time managing care of this patient today ____ minutes. Progress Note: Quality Stroke Does the patient have a stroke diagnosis?: No
--- NOTE | 2023-01-26 15:16 | PM.GICN ---
History of Present Illness Data of Consult Service Date: 01/26/23 Requesting physician: Williams Bess Primary Care Provider: Abdon Beard MD [facility] Reason for consult: abdominal pain 32 YF with history of ESRD on dialysis MWF, mostly noncompliant, diabetes with nephropathy and legally blind, difficult to control hypertension, noncompliant with meds or dialysis, with frequent hospitalization related to missed dialysis, accelerated hypertension nausea vomiting as well as generalized PN. Pt is known to the GI service from past hospitalizations. Pt was readmitted to [facility] on 01/21/23 with intractable nausea vomiting and missed dialysis x2. On admission Pt stated that she did not go for HD due to significant nausea vomiting and was not feeling well. She reported hat she has not been taking any of her medications as her primary care physician told her to stop taking her medications. Of note patient was discharged from the hospital on 01/07 for uncontrolled hypertension Of note, pt was scheduled for an EGD during a previous hospitalization in November,. She refused to undergo EGD when she was brought to the or for the procedure. On arrival to the ED patient found to have blood pressure of 225/134, improved after receiving hydralazine multiple times, she also had multiple episodes of vomiting, refusing to take Zofran Patient also complaining chest pain right-sided, worse with nausea vomiting On arrival her labs are significant for WBC count of 8.6, hemoglobin of 10.4, hematocrit 34.1 which is around her baseline, pH of 7.47, chloride of 116, potassium of 3.5, sodium 135, BUN of 39, creatinine of 3.06, calcium 6.2, troponin of 17 increased to 21, albumin of 2.2 12/17/[address] SCAN SHOWED: No explanation for left flank pain. No nephrolithiasis or hydronephrosis Moderate right pleural effusion, moderate pelvic free fluid, generalized anasarca consistent with volume overload in the setting of end-stage renal disease. Enlarged liver. Stable generalized mild lymphadenopathy. PAST GI HISTORY BY REVIEW OF MEDICAL RECORDS: 08/28/22 UGI SHOWED: Exam is limited due to patient mobility. There is delayed passage of oral contrast through the stomach. There is no evidence of mechanical obstruction/gastric outlet obstruction. There may be delayed gastric emptying. There is contrast collection with surrounding radiating folds suggestive of an ulcer in the body of the stomach. The stomach and duodenum are otherwise normal. 7/7/23 EGD WAS PERFORMED BY DR BENNETT: Esophagus: GE junction at 43? cm, diaphragm hiatus at 43 cm, irregular Z line with possible barretts Stomach: Patchy gastric erythema. Biopsies were obtained. Grade 2 flap valve on retroflexed examination of the cardia. Large amount of food in the stomach. No ulcer or mass seen Duodenum: Unable to enter due to food blocking pylorus, Impression/Findings: gastroparesis posisble barretts PLAN: Iv erythromycin 250 mg q8h for 48 hr with reglan and relistor, watch QTc, optimize lytes repeat EGD in near future if H pylori pos then treat cont with PPI Review of Systems Constitutional: Constitutional: Reports lethargy and Reports poor appetite Cardiovascular: Cardiovascular: Reports no additional cardiovascular complaints Gastrointestinal: Gastrointestinal: Reports nausea PMFSH Past Medical History Medical History (Updated 01/25/23 @ 10:48 by Micky Cotton MD) HFrEF (heart failure with reduced ejection fraction) ESRD on dialysis Migraine Diabetic foot ulcer associated with type 2 diabetes mellitus Chronic pain Gastroparesis Non-compliance with renal dialysis Hypertension Hypertensive emergency Diabetes ESRD needing dialysis Cardiomyopathy Metabolic acidosis delivery delivered Anemia in chronic kidney disease (CKD) CKD (chronic kidney disease) Headache, migraine Abnormal finding on echocardiogram Elevated troponin Chest pain Acute worsening of stage 3 chronic kidney disease Generalized edema Sepsis Cellulitis Pleural effusion CHF (congestive heart failure) (~06/07/22) Tachycardia Atypical chest pain Bone infection PAD (peripheral artery disease) Severe anemia Cellulitis and abscess of foot DM foot ulcer Osteomyelitis test positive test positive Asthma Depression with anxiety Diabetic retinopathy Type 2 diabetes mellitus with hyperglycemia, with long-term current use of insulin Blind right eye Diabetes Back pain Family History Family History Mother Coronary artery disease Myocardial infarction Stroke Diabetes mellitus Father Myocardial infarction Surgical History Surgical History 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 Social History Social History Household Members: Unknown / Unable to assess Household Members Other:: Sister, Moqovkg-ed-Gde, nephew Housing: Unknown / Unable to assess Do you presently have visiting nurse or other home services: No (unknown) Alcohol intake: never Comment: refuses camera Patient Tobacco Use Status: Never used Tobacco e-Cigarette/Vaping Use: Never Used Second Hand Smoke Exposure: No Advance Directives Date on File: 03/08/20 service: No Current occupational status: unemployed and disabled Gender identity: Female Meds Allergies Allergy/AdvReac Type Severity Reaction Status Date / Time morphine [MORPHINE] Allergy Intermediate Itching Verified 01/20/23 18:48 azithromycin [From Zithromax] Allergy Hives Verified 01/20/23 18:48 gabapentin Allergy Facial Verified 01/20/23 18:48 Swelling tramadol Allergy Facial Verified 01/20/23 18:48 Swelling vancomycin Allergy Hives Verified 01/20/23 18:48 Active Medications: Current Medications Acetaminophen (Acetaminophen 325 Mg Tablet) 650 mg PO Q6H PRN PRN Reason: Pain, Mild (Pain Scale 1-3) Aspirin (Aspirin Enteric Coated 81 Mg Tablet.Dr) 81 mg PO DAILY [facility] TO [facility] Last Admin: 01/26/23 10:44 Dose: Not Given Atorvastatin Calcium (Atorvastatin Calcium 40 Mg Tablet) 40 mg PO BEDTIME [facility] Last Admin: 01/25/23 20:38 Dose: Not Given Carvedilol (Carvedilol 6.25 Mg Tablet) 6.25 mg PO BID [facility] TO [facility]; Protocol Last Admin: 01/26/23 10:44 Dose: Not Given Dextrose (Dextrose 50 % 25 Gm/50 Ml Syringe) 25 gm IVPUSH Q15M PRN; Protocol PRN Reason: per Hypoglycemia Standing Ord. Glucose (Glucose Gel 15 Gm Gel..Gram.) 15 gm PO Q15M PRN; Protocol PRN Reason: per Hypoglycemia Standing Ord. Hydralazine HCl (Hydralazine Hcl 20 Mg/Ml Vial) 10 mg IVPUSH Q4H [facility]; Protocol Last Admin: 01/26/23 11:17 Dose: 10 mg Hydromorphone HCl (Hydromorphone Hcl 1 Mg/Ml Syringe) 1 mg IVPUSH Q4H PRN; Protocol PRN Reason: Pain, Severe (Pain Scale 7-10) Last Admin: 01/26/23 11:47 Dose: 1 mg Insulin Human Lispro (Insulin Lispro 100 Unit/Ml 3 Ml Vial) 0 unit SUBCUT QIDACHS [facility]; Protocol Last Admin: 01/26/23 11:35 Dose: Not Given Losartan Potassium (Losartan Potassium 25 Mg Tablet) 25 mg PO DAILY [facility]; Protocol Last Admin: 01/26/23 10:44 Dose: Not Given Pantoprazole Sodium (Pantoprazole Sodium 40 Mg/10 Ml Vial) 40 mg IVPUSH BID@0630,1630 [facility] Last Admin: 01/26/23 06:27 Dose: 40 mg Sodium Chloride (0.9 % Sodium Chloride Flush 3 Ml Syringe) 3 ml IVFLUSH QSHIFT [facility] Last Admin: 01/26/23 11:17 Dose: 3 ml Physical Exam Vital Signs: Vital Signs: Last Vital Signs Temp 98.1 F 01/26/23 11:11 Pulse 100 01/26/23 11:11 Resp 18 01/26/23 11:11 BP 137/78 01/26/23 11:11 Pulse Ox 98 01/26/23 11:11 O2 Del Method Room Air 01/26/23 11:11 BMI result Body Mass Index 24.4 Results Labs 01/26/23 09:30 01/26/23 09:30 Labs: Short CBC 01/26/23 Range/Units 09:30 Hgb 13.0 (12.0-16.0) g/dl Hct 40.0 (37.0-47.0) % BMP 01/26/23 09:30 Sodium 132 L Potassium 3.8 Chloride 96 Carbon Dioxide 24 BUN 40 H Creatinine 6.30 H* Calcium 8.6 Assessment and Plan (1) Intractable nausea and vomiting: Status: Resolved (2) Abdominal pain: Status: Inactive Plan 32 YF with HTN, CHFrEF,? ESRD on dialysis Sunday,? DM, diabetic retinopathy, peripheral vascular disease, diabetic gastroparesis, chronic hypoxemic respiratory failure on baseline oxygen admitted to [facility] on 01/21/23 with intractable nausea vomiting and miss dialysis x2 - her symptoms are likely related to uremia due to missed dialysis. Patient informed the admitting hospitalist that she did not go to dialysis because she had significant nausea vomiting and was not feeling well. She also stated that she has not been taking any of her medications as her primary care physician told her to stop taking her medications (unclear if her statement was true) RECOMMENDATIONS: 1. Agree with IV pain medications and antiemetics and PO omeprazole (once pt is able to tolerate PO medications). 2. Continue conservative management since pt was scheduled for an EGD during a previous hospitalization in November,. She refused to undergo EGD when she was brought to the OR for the procedure (despite agreeing to undergo the procedure initially). Procedures Date of Service Date of Service: 01/28/23
--- NOTE | 2023-01-26 15:43 | MHC.CM.PN ---
EMR reviewed and per MD rounds, pt is not medically cleared for D/C due to continued N/V, uncontrolled HTN, need for HD, and multiple specialists following. CM will continue to follow.
[2023-01-26 16:17] VITALS: BP 166/81; PULSE 99; RESP 15; TEMP 36.6; O2SAT 98
[2023-01-26 16:26] LABS: Glucose, Whole Blood 132 mg/dL (60-115)
--- NOTE | 2023-01-26 16:54 | P.PNIM_ITS ---
Subjective Subjective Date of Service: 01/26/23 Interval History: esrd, possible nstemi Review of Systems More awake today, denies any chest pain or shortness of breath ,she is more talkative today Says vomited improved, still has nausea Numbness of the face and the arm also says improved. Physical Exam 2 Vital Signs: Vital Signs: Last Vital Signs Temp 98 F 01/26/23 16:17 Pulse 99 01/26/23 16:17 Resp 15 01/26/23 16:17 BP 166/81 H 01/26/23 16:17 Pulse Ox 98 01/26/23 16:17 O2 Del Method Room Air 01/26/23 16:17 BMI result Body Mass Index 24.4 Appearance: Alert.? Oriented X3.? cvs: [id number], [id number] , no murmur res: clear to auscultation ,no rhonchii or wheezing abd: no rebound or guarding ,nt, bs present. ext pulses present , no cyanosis . neuro: axo3 , movesall ext Objective Data Active Medications Acetaminophen (Acetaminophen 325 Mg Tablet) 650 mg PO Q6H PRN PRN Reason: Pain, Mild (Pain Scale 1-3) Aspirin (Aspirin Enteric Coated 81 Mg Tablet.) 81 mg PO DAILY COUNT INCLUDES [facility] Last Admin: 01/26/23 10:44 Dose: Not Given Documented By: MIKE Non-Admin Reason: Patient Refused Atorvastatin Calcium (Atorvastatin Calcium 40 Mg Tablet) 40 mg PO BEDTIME COUNT INCLUDES THE [facility] Last Admin: 01/25/23 20:38 Dose: Not Given Documented By: CHET Non-Admin Reason: Patient Refused Comments: patient mentioned she will just throw it back up Carvedilol (Carvedilol 6.25 Mg Tablet) 6.25 mg PO BID COUNT INCLUDES THE [facility]; Protocol Last Admin: 01/26/23 10:44 Dose: Not Given Documented By: MIKE Non-Admin Reason: Patient Refused Dextrose (Dextrose 50 % 25 Gm/50 Ml Syringe) 25 gm IVPUSH Q15M PRN; Protocol PRN Reason: per Hypoglycemia Standing Ord. Glucose (Glucose Gel 15 Gm Gel..Gram.) 15 gm PO Q15M PRN; Protocol PRN Reason: per Hypoglycemia Standing Ord. Hydralazine HCl (Hydralazine Hcl 20 Mg/Ml Vial) 10 mg IVPUSH Q4H COUNT INCLUDES THE [facility]; Protocol Last Admin: 01/26/23 11:17 Dose: 10 mg Documented By: MIKE Hydromorphone HCl (Hydromorphone Hcl 1 Mg/Ml Syringe) 1 mg IVPUSH Q4H PRN; Protocol PRN Reason: Pain, Severe (Pain Scale 7-10) Last Admin: 01/26/23 11:47 Dose: 1 mg Documented By: CHET Insulin Human Lispro (Insulin Lispro 100 Unit/Ml 3 Ml Vial) 0 unit SUBCUT QIDACHS COUNT INCLUDES THE [facility]; Protocol Last Admin: 01/26/23 11:35 Dose: Not Given Documented By: CHET Non-Admin Reason: Patient Refused Losartan Potassium (Losartan Potassium 25 Mg Tablet) 25 mg PO DAILY COUNT INCLUDES THE [facility]; Protocol Last Admin: 01/26/23 10:44 Dose: Not Given Documented By: MIKE Non-Admin Reason: Patient Refused Pantoprazole Sodium (Pantoprazole Sodium 40 Mg/10 Ml Vial) 40 mg IVPUSH BID@0630,1630 COUNT INCLUDES THE [facility] Last Admin: 01/26/23 06:27 Dose: 40 mg Documented By: MARTHAOIC Sodium Chloride (0.9 % Sodium Chloride Flush 3 Ml Syringe) 3 ml IVFLUSH QSHIFT COUNT INCLUDES THE [facility] Last Admin: 01/26/23 11:17 Dose: 3 ml Documented By: MIKE Labs 01/26/23 09:30 01/26/23 09:30 Labs: Laboratory Results - last 24 hr 01/25/23 01/25/23 01/26/23 20:34 21:03 03:06 aPTT Heparin Protocol 87.0 H D 89.2 H Anion Gap Estim Creat Clear Calc Estimated GFR POC Glucose 179 H Random Glucose Calcium 01/26/23 01/26/23 01/26/23 07:25 09:30 11:13 aPTT Heparin Protocol 29.2 L D Anion Gap 16 Estim Creat Clear Calc 11.7 Estimated GFR 8 POC Glucose 143 H 172 H Random Glucose 191 H Calcium 8.6 01/26/23 16:22 aPTT Heparin Protocol Anion Gap Estim Creat Clear Calc Estimated GFR POC Glucose 132 H Random Glucose Calcium Assessment and Plan (1) HFrEF (heart failure with reduced ejection fraction): Status: Acute Plan 32-year-old female past medical history of uncontrolled hypertension, noncompliant with medications, ESRD on dialysis not compliant, diabetes, diabetic retinopathy and neuropathy, comes into the hospital with nausea vomiting as well as hypertensive urgency -patient has had multiple admissions in the past for similar findings and presentation Hypertensive uncontrolled : poor compliance with therapies in house. continue coreg for better bp control,continue losartan ,also added iv hydralazine prn for bp control possible nstemi: ekg-inferior /lateral trop:[id number] echo last in : 35-40% ef ekg-less likely qtc prolong,possible rbbb. myocardial perfusion imaging which shows low risk. No significant ischemic burden to suggest her LV systolic dysfunction. cardiology eval noted-continue asa ,statin,bb ,dc heparin drip Acute CHF exacerbation resolved with dialysis follow clinically ESRD on dialysis - receive dialysis in-house with good response -nephrology following Intractable nausea vomiting -likely secondary to gastroparesis in the setting of diabetes monitor symptoms-patient has small amount of vomitin ,refuses po and antiemetics Diabetes - noncompliant with medications - place on low-dose sliding scale insulin - diabetic diet possible TIa: ct head neg mri added neurology eval noted-cotninue asa,statin,htn control Patient sent to the MRI but she does not do it as per MRI yesterday she had today she vomited and try to come back She is asymptomatic. Heparin subQ Full code ongoing hospitalization for IV medication -uncontrolled htn and nstemi-need iv heaprin.cardiac workup Quality Stroke Does the patient have a stroke diagnosis?: No VTE Prior VTE?: No VTE Risk Level:: Medical - moderate - high VTE Device Contraindication: Treatment Not Indicated VTE Drug Contraindication: N/A - Med Ordered
[2023-01-26 19:18] VITALS: BP 148/81; PULSE 100; RESP 18; TEMP 36.1; O2SAT 98
[2023-01-26 20:07] LABS: Glucose, Whole Blood 286 mg/dL (60-115)
[2023-01-26] MEDS: Insulin Lispro 100 UNIT/ML 3 ML VIAL SUBCUT (22:16)
[2023-01-26 23:25] VITALS: BP 102/58; PULSE 97; RESP 18; TEMP 36.2; O2SAT 98
[2023-01-27] VITALS (7 sets, daily range): BP systolic 93–167; BP diastolic 51–87; PULSE 90–105; RESP 16–18; TEMP 36.1–36.9; O2SAT 97–100
[2023-01-27] MEDS: hydrALAZINE HCl 20 MG/ML VIAL 10 MG IVPUSH ×5 (02:55→22:35)
[2023-01-27] MEDS: HYDROmorphone HCl 1 MG/ML SYRINGE IVPUSH ×5 (03:01→22:35)
[2023-01-27] MEDS: Pantoprazole Sodium 40 MG/10 ML VIAL IVPUSH ×2 (06:43→17:10)
[2023-01-27 07:39] LABS: Glucose, Whole Blood 185 mg/dL (60-115)
[2023-01-27] MEDS: Insulin Lispro 100 UNIT/ML 3 ML VIAL SUBCUT ×3 (09:09→22:40)
[2023-01-27] MEDS: 0.9 % Sodium Chloride Flush 3 ML SYRINGE IVFLUSH ×3 (09:10→22:47)
[2023-01-27] MEDS: Metoclopramide HCl 10 MG/2 ML VIAL 5 MG IVPUSH (09:10)
[2023-01-27] MEDS: carvediloL 6.25 MG TABLET PO ×2 (09:15→22:35)
[2023-01-27] MEDS: Aspirin Enteric Coated 81 MG TABLET.DR PO (09:15)
[2023-01-27] MEDS: Losartan Potassium 25 MG TABLET PO (09:15)
--- NOTE | 2023-01-27 10:26 | HO.PM.IMPN ---
Subjective Subjective Date of Service: 01/28/23 Interval History: nausea,vomiting Review of Systems More awake today, denies any chest pain or shortness of breath says tez trimble has 1 episode of vomiting Numbness of the face and the arm also says improved. Physical Exam Vital Signs: Vital Signs: Last Vital Signs Temp 97.0 F 01/27/23 08:00 Pulse 105 H 01/27/23 08:00 Resp 18 01/27/23 08:00 BP 167/78 H 01/27/23 08:00 Pulse Ox 98 01/27/23 08:00 O2 Del Method Room Air 01/27/23 08:00 BMI result Body Mass Index 24.4 Appearance: Alert.? Oriented X3.? cvs: rrr, [id number] , no murmur res: clear to auscultation ,no rhonchii or wheezing abd: no rebound or guarding ,nt, bs present. ext pulses present , no cyanosis . neuro: axo3 , movesall ext Objective Data Active Medications Acetaminophen (Acetaminophen 325 Mg Tablet) 650 mg PO Q6H PRN PRN Reason: Pain, Mild (Pain Scale 1-3) Aspirin (Aspirin Enteric Coated 81 Mg Tablet.) 81 mg PO DAILY [facility] Last Admin: 01/27/23 09:15 Dose: 81 mg Documented By: MIKE Atorvastatin Calcium (Atorvastatin Calcium 40 Mg Tablet) 40 mg PO BEDTIME [facility] Last Admin: 01/26/23 22:10 Dose: Not Given Documented By: LISA Non-Admin Reason: Patient Refused Carvedilol (Carvedilol 6.25 Mg Tablet) 6.25 mg PO BID [facility]; Protocol Last Admin: 01/27/23 09:15 Dose: 6.25 mg Documented By: MIKE Dextrose (Dextrose 50 % 25 Gm/50 Ml Syringe) 25 gm IVPUSH Q15M PRN; Protocol PRN Reason: per Hypoglycemia Standing Ord. Glucose (Glucose Gel 15 Gm Gel..Gram.) 15 gm PO Q15M PRN; Protocol PRN Reason: per Hypoglycemia Standing Ord. Hydralazine HCl (Hydralazine Hcl 20 Mg/Ml Vial) 10 mg IVPUSH Q4H [facility]; Protocol Last Admin: 01/27/23 09:11 Dose: 10 mg Documented By: MIKE Hydromorphone HCl (Hydromorphone Hcl 1 Mg/Ml Syringe) 1 mg IVPUSH Q4H PRN; Protocol PRN Reason: Pain, Severe (Pain Scale 7-10) Last Admin: 01/27/23 09:13 Dose: 1 mg Documented By: MIKE Insulin Human Lispro (Insulin Lispro 100 Unit/Ml 3 Ml Vial) 0 unit SUBCUT QIDACHS [facility]; Protocol Last Admin: 01/27/23 09:09 Dose: 2 unit Documented By: MIKE Losartan Potassium (Losartan Potassium 25 Mg Tablet) 25 mg PO DAILY [facility]; Protocol Last Admin: 01/27/23 09:15 Dose: 25 mg Documented By: MIKE Metoclopramide HCl (Metoclopramide Hcl 10 Mg/2 Ml Vial) 5 mg IVPUSH Q6H PRN PRN Reason: Nausea and Vomiting Last Admin: 01/27/23 09:10 Dose: 5 mg Documented By: MIKE Pantoprazole Sodium (Pantoprazole Sodium 40 Mg/10 Ml Vial) 40 mg IVPUSH BID@0630,1630 [facility] Last Admin: 01/27/23 06:43 Dose: 40 mg Documented By: LISA Sodium Chloride (0.9 % Sodium Chloride Flush 3 Ml Syringe) 3 ml IVFLUSH QSHIFT [facility] Last Admin: 01/27/23 09:10 Dose: 3 ml Documented By: MIKE Labs 01/26/23 09:30 01/26/23 09:30 Labs: Laboratory Results - last 24 hr 01/26/23 01/26/23 01/26/23 11:13 16:22 19:55 POC Glucose 172 H 132 H 286 H 01/27/23 07:35 POC Glucose 185 H Assessment and Plan (1) HFrEF (heart failure with reduced ejection fraction): Status: Acute (2) ESRD on dialysis: Status: Acute Plan 32-year-old female past medical history of uncontrolled hypertension, noncompliant with medications, ESRD on dialysis not compliant, diabetes, diabetic retinopathy and neuropathy, comes into the hospital with nausea vomiting as well as hypertensive urgency -patient has had multiple admissions in the past for similar findings and presentation Hypertensive uncontrolled : htn improving poor compliance with therapies in house. continue coreg for better bp control,continue losartan ,also added iv hydralazine prn for bp control possible nstemi: ekg-inferior /lateral trop:[id number] echo last in : 35-40% ef ekg-less likely qtc prolong,possible rbbb. myocardial perfusion imaging which shows low risk. No significant ischemic burden to suggest her LV systolic dysfunction. cardiology eval noted-continue asa ,statin,bb ,dc heparin drip Acute CHF exacerbation resolved with dialysis follow clinically ESRD on dialysis receive dialysis in-house with good response nephrology following Intractable nausea vomiting-likely secondary to gastroparesis in the setting of diabetes monitor symptoms-patient has small amount of vomitin , antiemetics -added reglan Diabetes- noncompliant with medications place on low-dose sliding scale insulin diabetic diet possible TIa: ct head neg mri added neurology eval noted-cotninue asa,statin,htn control mri-patient seems uninterested in getting mri,She is asymptomatic. Heparin subQ Full code ongoing hospitalization for IV medication -uncontrolled htn and nstemi-need iv heaprin.cardiac workup Quality Stroke Does the patient have a stroke diagnosis?: No VTE Prior VTE?: No VTE Risk Level:: Medical - moderate - high VTE Device Contraindication: Treatment Not Indicated VTE Drug Contraindication: N/A - Med Ordered
[2023-01-27 12:00] LABS: Glucose, Whole Blood 204 mg/dL (60-115)
--- NOTE | 2023-01-27 12:54 | P.PNNP_ITS ---
Subjective Subjective Date of Service: 01/27/23 Principal diagnosis: Cardiomyopathy Interval history: reinforced plan of avoidance of narcotics, shared with hospital team patient did not want to speak with me. Remained silent. Avoidant behavior Physical Exam 2 Vital Signs: Vital Signs: Last Vital Signs Temp 97.8 F 01/27/23 11:07 Pulse 90 01/27/23 11:07 Resp 18 01/27/23 11:07 BP 93/51 L 01/27/23 11:07 Pulse Ox 99 01/27/23 11:07 O2 Del Method Room Air 01/27/23 11:07 BMI result Body Mass Index 24.4 Const: Other: Awake alert visibly uncomfortable Resp: Other: Clear to auscultation bilaterally no rales rhonchi or wheezes Cardio: Other: No S4; positive S1-S2; no S3 murmurs rubs or gallops GI: Other: Soft nontender nondistended normoactive bowel sounds Extrem: Other: No edema bilaterally Objective Data Labs 01/26/23 09:30 01/26/23 09:30 Labs: Laboratory Results - last 24 hr 01/26/23 01/26/23 01/27/23 16:22 19:55 07:35 POC Glucose 132 H 286 H 185 H 01/27/23 11:52 POC Glucose 204 H Procedures Date of Service Date of Service: 01/27/23 Assessment & Plan Assessment and plan (1) End-stage renal disease (ESRD): Status: Acute (2) Hyperkalemia: Status: Acute (3) Vomiting: Status: Acute (4) Hyponatremia: Status: Acute (5) Hypertension, uncontrolled: Status: Resolved (6) ESRD on dialysis: Status: Acute Plan Ms. Taylor has a PMHx of ESRD, T2DM, uncontrolled HTN and noncompliance with diaylsis/medications. She is admitted with HTN emergency. 1. ESRD Continue mwf dialysis ESRD diet, salt and potassium restricted 2. HTN: doing better- On Losartan- Hydralazine PRN 3. Nephrogenic anemia FE stores- OK HB is OK no need for EPO 4. Nausea: Unlikely uremia related. Patient is well dialyzed now Time Spent With Patient Time: Total time managing care of this patient today ____ minutes. Progress Note: Quality Stroke Does the patient have a stroke diagnosis?: No
[2023-01-27] MEDS: Heparin Sodium,Porcine 5,000 UNIT/ML VIAL 5000 UNIT SUBCUT ×2 (14:15→22:41)
[2023-01-27 17:01] LABS: Glucose, Whole Blood 107 mg/dL (60-115)
[2023-01-27 17:01] LABS: Glucose, Whole Blood 90 mg/dL (60-115)
[2023-01-27 20:57] LABS: Glucose, Whole Blood 258 mg/dL (60-115)
[2023-01-28] MEDS: HYDROmorphone HCl 1 MG/ML SYRINGE IVPUSH ×4 (02:40→23:25)
[2023-01-28] MEDS: hydrALAZINE HCl 20 MG/ML VIAL 10 MG IVPUSH ×6 (02:43→23:24)
[2023-01-28 03:22] VITALS: BP 166/79; PULSE 114; RESP 20; TEMP 36.2; O2SAT 97
[2023-01-28 06:35] VITALS: BP 128/67
[2023-01-28] MEDS: Pantoprazole Sodium 40 MG/10 ML VIAL IVPUSH ×2 (06:37→18:16)
[2023-01-28 07:36] LABS: Glucose, Whole Blood 186 mg/dL (60-115)
[2023-01-28 07:58] VITALS: BP 127/68; PULSE 92; RESP 20; TEMP 36.3; O2SAT 98
[2023-01-28] MEDS: 0.9 % Sodium Chloride Flush 3 ML SYRINGE IVFLUSH ×3 (09:41→23:25)
[2023-01-28] MEDS: Losartan Potassium 25 MG TABLET PO (09:43)
[2023-01-28] MEDS: Aspirin Enteric Coated 81 MG TABLET.DR PO (09:43)
[2023-01-28] MEDS: carvediloL 6.25 MG TABLET PO (09:43)
[2023-01-28] MEDS: Insulin Lispro 100 UNIT/ML 3 ML VIAL SUBCUT ×3 (09:45→23:23)
[2023-01-28] MEDS: Metoclopramide HCl 10 MG/2 ML VIAL 5 MG IVPUSH ×2 (11:11→23:14)
[2023-01-28 11:20] LABS: Glucose, Whole Blood 132 mg/dL (60-115)
[2023-01-28 11:52] VITALS: BP 130/71; PULSE 94; RESP 20; TEMP 37.2; O2SAT 97
--- NOTE | 2023-01-28 13:18 | HO.PM.IMPN ---
Subjective Subjective Date of Service: 01/29/23 Interval History: nausea Review of Systems she says less nausea but still not taking po much, encouraged for po inatke. Physical Exam Vital Signs: Vital Signs: Last Vital Signs Temp 98.9 F 01/28/23 11:52 Pulse 94 01/28/23 11:52 Resp 20 01/28/23 11:52 BP 130/71 01/28/23 11:52 Pulse Ox 97 01/28/23 11:52 O2 Del Method Room Air 01/28/23 11:52 BMI result Body Mass Index 24.4 Appearance: Alert.? Oriented X3.? cvs: rrr, [id number] , no murmur res: clear to auscultation ,no rhonchii or wheezing abd: no rebound or guarding ,nt, bs present. ext pulses present , no cyanosis . neuro: axo3 , movesall ext Objective Data Active Medications Acetaminophen (Acetaminophen 325 Mg Tablet) 650 mg PO Q6H PRN PRN Reason: Pain, Mild (Pain Scale 1-3) Aspirin (Aspirin Enteric Coated 81 Mg Tablet.) 81 mg PO DAILY [facility] Last Admin: 01/28/23 09:43 Dose: 81 mg Documented By: MIKE Atorvastatin Calcium (Atorvastatin Calcium 40 Mg Tablet) 40 mg PO BEDTIME [facility] Last Admin: 01/27/23 22:35 Dose: Not Given Documented By: LISA Non-Admin Reason: Patient Refused Carvedilol (Carvedilol 6.25 Mg Tablet) 6.25 mg PO BID [facility]; Protocol Last Admin: 01/28/23 09:43 Dose: 6.25 mg Documented By: MIKE Dextrose (Dextrose 50 % 25 Gm/50 Ml Syringe) 25 gm IVPUSH Q15M PRN; Protocol PRN Reason: per Hypoglycemia Standing Ord. Glucose (Glucose Gel 15 Gm Gel..Gram.) 15 gm PO Q15M PRN; Protocol PRN Reason: per Hypoglycemia Standing Ord. Heparin Sodium (Porcine) (Heparin Sodium,Porcine 5,000 Unit/Ml Vial) 5,000 unit SUBCUT Q8H [facility] Last Admin: 01/28/23 06:27 Dose: Not Given Documented By: LISA Non-Admin Reason: Patient Refused Hydralazine HCl (Hydralazine Hcl 20 Mg/Ml Vial) 10 mg IVPUSH Q4H [facility]; Protocol Last Admin: 01/28/23 09:43 Dose: 10 mg Documented By: MIKE Insulin Human Lispro (Insulin Lispro 100 Unit/Ml 3 Ml Vial) 0 unit SUBCUT QIDACHS [facility]; Protocol Last Admin: 01/28/23 11:50 Dose: Not Given Documented By: MIKE Non-Admin Reason: No Insulin Coverage Losartan Potassium (Losartan Potassium 25 Mg Tablet) 25 mg PO DAILY [facility]; Protocol Last Admin: 01/28/23 09:43 Dose: 25 mg Documented By: MIKE Metoclopramide HCl (Metoclopramide Hcl 10 Mg/2 Ml Vial) 5 mg IVPUSH Q6H PRN PRN Reason: Nausea and Vomiting Last Admin: 01/28/23 11:11 Dose: 5 mg Documented By: DAE Pantoprazole Sodium (Pantoprazole Sodium 40 Mg/10 Ml Vial) 40 mg IVPUSH BID@0630,1630 [facility] Last Admin: 01/28/23 06:37 Dose: 40 mg Documented By: LISA Sodium Chloride (0.9 % Sodium Chloride Flush 3 Ml Syringe) 3 ml IVFLUSH QSHIFT [facility] Last Admin: 01/28/23 09:41 Dose: 3 ml Documented By: MIKE Labs 01/26/23 09:30 01/26/23 09:30 Labs: Laboratory Results - last 24 hr 01/27/23 01/27/23 01/27/23 16:20 16:56 20:29 POC Glucose 90 107 258 H 01/28/23 01/28/23 07:30 10:58 POC Glucose 186 H 132 H Assessment and Plan (1) HFrEF (heart failure with reduced ejection fraction): Status: Acute (2) ESRD on dialysis: Status: Acute Plan 32-year-old female past medical history of uncontrolled hypertension, noncompliant with medications, ESRD on dialysis not compliant, diabetes, diabetic retinopathy and neuropathy, comes into the hospital with nausea vomiting as well as hypertensive urgency -patient has had multiple admissions in the past for similar findings and presentation Hypertensive uncontrolled : htn improving poor compliance with therapies in house. continue coreg for better bp control,continue losartan ,also added iv hydralazine prn for bp control possible nstemi: ekg-inferior /lateral trop:[id number] echo last in : 35-40% ef ekg-less likely qtc prolong,possible rbbb. myocardial perfusion imaging which shows low risk. No significant ischemic burden to suggest her LV systolic dysfunction. cardiology eval noted-continue asa ,statin,bb ,dc heparin drip Acute CHF exacerbation resolved with dialysis follow clinically ESRD on dialysis receive dialysis in-house with good response nephrology following Intractable nausea vomiting-likely secondary to gastroparesis in the setting of diabetes monitor symptoms-patient has small amount of vomitin , antiemetics -added reglan Diabetes- noncompliant with medications place on low-dose sliding scale insulin diabetic diet possible TIa: ct head neg mri added neurology eval noted-cotninue asa,statin,htn control mri-patient seems uninterested in getting mri,She is asymptomatic. Heparin subQ Full code ongoing hospitalization : persitent nausea -still not able to take po? encoraged for po intake/ Quality Stroke Does the patient have a stroke diagnosis?: No VTE Prior VTE?: No VTE Risk Level:: Medical - moderate - high VTE Device Contraindication: Treatment Not Indicated VTE Drug Contraindication: N/A - Med Ordered
[2023-01-28] MEDS: Heparin Sodium,Porcine 5,000 UNIT/ML VIAL 5000 UNIT SUBCUT ×2 (14:54→23:23)
[2023-01-28 14:58] VITALS: BP 138/63; PULSE 105; RESP 18; TEMP 36.5; O2SAT 97
[2023-01-28 16:05] LABS: Glucose, Whole Blood 205 mg/dL (60-115)
--- NOTE | 2023-01-28 16:48 | P.PNNP_ITS ---
Subjective Subjective Date of Service: 01/28/23 Principal diagnosis: Cardiomyopathy Interval history: ongoing complaints of pain and nausea pt feels miserable dictates own care Physical Exam 2 Vital Signs: Vital Signs: Last Vital Signs Temp 97.7 F 01/28/23 14:58 Pulse 105 H 01/28/23 14:58 Resp 18 01/28/23 14:58 BP 138/63 01/28/23 14:58 Pulse Ox 97 01/28/23 14:58 O2 Del Method Room Air 01/28/23 14:58 BMI result Body Mass Index 24.4 Const: Other: Awake alert visibly uncomfortable General: comfortable, no acute distress, alert and awake Nutritional Appearance: average body habitus HEENT: Head: Yes normocephalic and Yes atraumatic Neck: Neck: Yes trachea midline, Yes supple and Yes no JVD Chest: Chest palpation & inspection: normal inspection of the chest Resp: Other: Clear to auscultation bilaterally no rales rhonchi or wheezes Effort & Inspection: decreased respiratory effort Auscultation: no rales, no wheezes and diminished lung sounds Cardio: Other: No S4; positive S1-S2; no S3 murmurs rubs or gallops Jugular venous distension: no JVD Palpation: abnormal PMI displaced PMI Rate: tachycardic Rhythm: regular rhythm Heart sounds: S1 normal heart sound present, S2 normal heart sound present, no click, no gallops and no murmurs GI: Other: Soft nontender nondistended normoactive bowel sounds Palpation (GI): Soft to palpation and nontender Auscultation: normal bowel sounds Skin: General skin exam: no rashes or lesions noted Neuro: Other: She is alert and awake with normal spontaneity of speech fluency comprehension and depressed affect. Right eye is opaque. Left pupil is round reactive. Face seems symmetrical. She was able to use a right hand but when I asked to show me 2 fingers with left hand she did but slowly. He was not lifting her left arm up against gravity. She was also partly flexed and resistant to examination. Toes were missing while she was able to move her feet. Deep tendon reflexes were absent. General: moves all extremities Extrem: Other: No edema bilaterally General: Yes no clubbing, cyanosis or edema and Yes no pedal edema Objective Data Labs 01/26/23 09:30 01/26/23 09:30 Labs: Laboratory Results - last 24 hr 01/27/23 01/27/23 01/27/23 16:20 16:56 20:29 POC Glucose 90 107 258 H 01/28/23 01/28/23 01/28/23 07:30 10:58 15:56 POC Glucose 186 H 132 H 205 H Procedures Date of Service Date of Service: 01/28/23 Assessment & Plan Assessment and plan (1) End-stage renal disease (ESRD): Status: Acute (2) Hyperkalemia: Status: Acute (3) Vomiting: Status: Acute (4) Hyponatremia: Status: Acute (5) Hypertension, uncontrolled: Status: Resolved (6) ESRD on dialysis: Status: Acute Plan Ms. Taylor has a PMHx of ESRD, T2DM, uncontrolled HTN and noncompliance with diaylsis/medications. She is admitted with HTN emergency. 1. ESRD Continue mwf dialysis ESRD diet, salt and potassium restricted 2. HTN: doing better- On Losartan- Hydralazine PRN 3. Nephrogenic anemia FE stores- OK HB is OK no need for EPO 4. Nausea: Unlikely uremia related. Patient is well dialyzed now Time Spent With Patient Time: Total time managing care of this patient today ____ minutes. Progress Note: Quality Stroke Does the patient have a stroke diagnosis?: No
[2023-01-28] MEDS: HYDROmorphone HCl 2 MG TABLET PO (18:15)
[2023-01-28 18:58] VITALS: BP 153/82; PULSE 105; RESP 20; TEMP 35.9; O2SAT 97
[2023-01-28 20:08] LABS: Glucose, Whole Blood 181 mg/dL (60-115)
[2023-01-29] VITALS (7 sets, daily range): BP systolic 119–182; BP diastolic 58–86; PULSE 105–117; RESP 16–20; TEMP 36.1–36.9; O2SAT 95–99
[2023-01-29] MEDS: hydrALAZINE HCl 20 MG/ML VIAL 10 MG IVPUSH ×6 (02:46→21:41)
[2023-01-29] MEDS: Pantoprazole Sodium 40 MG/10 ML VIAL IVPUSH (06:26)
[2023-01-29] MEDS: Heparin Sodium,Porcine 5,000 UNIT/ML VIAL 5000 UNIT SUBCUT ×2 (06:26→12:50)
[2023-01-29 07:59] LABS: Glucose, Whole Blood 175 mg/dL (60-115)
[2023-01-29] MEDS: Insulin Lispro 100 UNIT/ML 3 ML VIAL SUBCUT ×4 (08:39→21:50)
[2023-01-29] MEDS: 0.9 % Sodium Chloride Flush 3 ML SYRINGE IVFLUSH ×3 (08:39→21:42)
[2023-01-29 12:41] LABS: Glucose, Whole Blood 171 mg/dL (60-115)
[2023-01-29] MEDS: HYDROmorphone HCl 2 MG TABLET PO (13:49)
[2023-01-29] MEDS: diphenhydrAMINE HCL 25 MG CAPSULE 50 MG PO (13:49)
--- NOTE | 2023-01-29 15:39 | PM.PNNEP ---
Subjective Subjective Date of Service: 01/29/23 Principal diagnosis: Cardiomyopathy Interval history: Seen and examined,events noted Physical Exam Vital Signs: Vital Signs: Last Vital Signs Temp 98.2 F 01/29/23 12:32 Pulse 106 H 01/29/23 12:32 Resp 20 01/29/23 12:32 BP 127/67 01/29/23 12:32 Pulse Ox 99 01/29/23 12:32 O2 Del Method Room Air 01/29/23 12:32 BMI result Body Mass Index 24.4 Const: Other: Awake alert visibly uncomfortable General: comfortable, no acute distress, alert and awake Nutritional Appearance: average body habitus HEENT: Head: Yes normocephalic and Yes atraumatic Neck: Neck: Yes trachea midline, Yes supple and Yes no JVD Chest: Chest palpation & inspection: normal inspection of the chest Resp: Other: Clear to auscultation bilaterally no rales rhonchi or wheezes Effort & Inspection: decreased respiratory effort Auscultation: no rales, no wheezes and diminished lung sounds Cardio: Other: No S4; positive S1-S2; no S3 murmurs rubs or gallops Jugular venous distension: no JVD Palpation: abnormal PMI displaced PMI Rate: tachycardic Rhythm: regular rhythm Heart sounds: S1 normal heart sound present, S2 normal heart sound present, no click, no gallops and no murmurs GI: Other: Soft nontender nondistended normoactive bowel sounds Palpation (GI): Soft to palpation and nontender Auscultation: normal bowel sounds Skin: General skin exam: no rashes or lesions noted Neuro: Other: She is alert and awake with normal spontaneity of speech fluency comprehension and depressed affect. Right eye is opaque. Left pupil is round reactive. Face seems symmetrical. She was able to use a right hand but when I asked to show me 2 fingers with left hand she did but slowly. He was not lifting her left arm up against gravity. She was also partly flexed and resistant to examination. Toes were missing while she was able to move her feet. Deep tendon reflexes were absent. General: moves all extremities Extrem: Other: No edema bilaterally General: Yes no clubbing, cyanosis or edema and Yes no pedal edema Objective Data Labs 01/26/23 09:30 01/26/23 09:30 Labs: Laboratory Results - last 24 hr 01/28/23 01/28/23 01/29/23 15:56 20:00 07:48 POC Glucose 205 H 181 H 175 H 01/29/23 12:38 POC Glucose 171 H Procedures Date of Service Date of Service: 01/29/23 Assessment & Plan Assessment and plan (1) Intractable nausea and vomiting: Status: Resolved (2) Abdominal pain: Status: Inactive Plan 32 YF with HTN, CHFrEF,? ESRD on dialysis Sunday,? DM, diabetic retinopathy, peripheral vascular disease, diabetic gastroparesis, chronic hypoxemic respiratory failure on baseline oxygen admitted to [facility] on 01/21/23 with intractable nausea vomiting and miss dialysis x2 - her symptoms are likely related to uremia due to missed dialysis. Patient informed the admitting hospitalist that she did not go to dialysis because she had significant nausea vomiting and was not feeling well. She also stated that she has not been taking any of her medications as her primary care physician told her to stop taking her medications (unclear if her statement was true) 1. ESRD: mwf 2. Gen pain and N/V: being sorted out with Gi eval and pain meds Will follow w team Time Spent With Patient Time: Total time managing care of this patient today ____ minutes. Progress Note: Quality Stroke Does the patient have a stroke diagnosis?: No
[2023-01-29 16:25] LABS: Glucose, Whole Blood 263 mg/dL (60-115)
--- NOTE | 2023-01-29 16:35 | P.PNIM_ITS ---
Subjective Subjective Date of Service: 01/30/23 Interval History: nausea Review of Systems Nausea vomiting seems to be improved, Still refusing to take p.o. Physical Exam 2 Vital Signs: Vital Signs: Last Vital Signs Temp 98.2 F 01/29/23 12:32 Pulse 106 H 01/29/23 12:32 Resp 20 01/29/23 12:32 BP 127/67 01/29/23 12:32 Pulse Ox 99 01/29/23 12:32 O2 Del Method Room Air 01/29/23 12:32 BMI result Body Mass Index 24.4 Appearance: Alert.? Oriented X3.? cvs: rrr, [id number] , no murmur res: clear to auscultation ,no rhonchii or wheezing abd: no rebound or guarding ,nt, bs present. ext pulses present , no cyanosis . neuro: axo3 , movesall ext Objective Data Active Medications Acetaminophen (Acetaminophen 325 Mg Tablet) 650 mg PO Q6H PRN PRN Reason: Pain, Mild (Pain Scale 1-3) Aspirin (Aspirin Enteric Coated 81 Mg Tablet.) 81 mg PO DAILY [facility] Last Admin: 01/29/23 09:46 Dose: Not Given Documented By: LARRY Non-Admin Reason: Patient Refused Atorvastatin Calcium (Atorvastatin Calcium 40 Mg Tablet) 40 mg PO BEDTIME [facility] Last Admin: 01/28/23 23:27 Dose: Not Given Documented By: BUZZ Non-Admin Reason: Patient Refused Carvedilol (Carvedilol 6.25 Mg Tablet) 6.25 mg PO BID [facility]; Protocol Last Admin: 01/29/23 09:46 Dose: Not Given Documented By: LARRY Non-Admin Reason: Patient Refused Dextrose (Dextrose 50 % 25 Gm/50 Ml Syringe) 25 gm IVPUSH Q15M PRN; Protocol PRN Reason: per Hypoglycemia Standing Ord. Glucose (Glucose Gel 15 Gm Gel..Gram.) 15 gm PO Q15M PRN; Protocol PRN Reason: per Hypoglycemia Standing Ord. Heparin Sodium (Porcine) (Heparin Sodium,Porcine 5,000 Unit/Ml Vial) 5,000 unit SUBCUT Q8H [facility] Last Admin: 01/29/23 12:50 Dose: 5,000 unit Documented By: LARRY Hydralazine HCl (Hydralazine Hcl 20 Mg/Ml Vial) 10 mg IVPUSH Q4H [facility]; Protocol Last Admin: 01/29/23 12:50 Dose: 10 mg Documented By: LARRY Insulin Human Lispro (Insulin Lispro 100 Unit/Ml 3 Ml Vial) 0 unit SUBCUT QIDACHS [facility]; Protocol Last Admin: 01/29/23 12:51 Dose: 2 unit Documented By: LARRY Losartan Potassium (Losartan Potassium 25 Mg Tablet) 25 mg PO DAILY [facility]; Protocol Last Admin: 01/29/23 09:47 Dose: Not Given Documented By: LARRY Non-Admin Reason: Patient Refused Metoclopramide HCl (Metoclopramide Hcl 10 Mg/2 Ml Vial) 5 mg IVPUSH Q6H PRN PRN Reason: Nausea and Vomiting Last Admin: 01/28/23 23:14 Dose: 5 mg Documented By: BUZZ Omeprazole (Omeprazole 20 Mg Capsule.Dr) 20 mg PO DAILY@0630 [facility] Last Admin: 01/29/23 09:46 Dose: Not Given Documented By: LARRY Non-Admin Reason: Patient Refused Sodium Chloride (0.9 % Sodium Chloride Flush 3 Ml Syringe) 3 ml IVFLUSH QSHIFT [facility] Last Admin: 01/29/23 08:39 Dose: 3 ml Documented By: LARRY Labs 01/26/23 09:30 01/26/23 09:30 Labs: Laboratory Results - last 24 hr 01/28/23 01/29/23 01/29/23 20:00 07:48 12:38 POC Glucose 181 H 175 H 171 H 01/29/23 16:21 POC Glucose 263 H Assessment and Plan (1) End-stage renal disease (ESRD): Status: Acute Plan 32-year-old female past medical history of uncontrolled hypertension, noncompliant with medications, ESRD on dialysis not compliant, diabetes, diabetic retinopathy and neuropathy, comes into the hospital with nausea vomiting as well as hypertensive urgency -patient has had multiple admissions in the past for similar findings and presentation Hypertensive uncontrolled : htn improving poor compliance with therapies in house. continue coreg for better bp control,continue losartan ,also added iv hydralazine prn for bp control possible nstemi: ekg-inferior /lateral trop:[id number] echo last in : 35-40% ef ekg-less likely qtc prolong,possible rbbb. myocardial perfusion imaging which shows low risk. No significant ischemic burden to suggest her LV systolic dysfunction. cardiology eval noted-continue asa ,statin,bb ,dc heparin drip Acute CHF exacerbation resolved with dialysis follow clinically ESRD on dialysis receive dialysis in-house with good response nephrology following Intractable nausea vomiting-likely secondary to gastroparesis in the setting of diabetes monitor symptoms-patient has small amount of vomitin , antiemetics -added reglan Diabetes- noncompliant with medications place on low-dose sliding scale insulin diabetic diet possible TIa: ct head neg mri added neurology eval noted-cotninue asa,statin,htn control mri-patient seems uninterested in getting mri,She is asymptomatic. Heparin subQ Full code ongoing hospitalization : persitent nausea -still not able to take po? encoraged for po intake Quality Stroke Does the patient have a stroke diagnosis?: No VTE Prior VTE?: No VTE Risk Level:: Medical - moderate - high VTE Device Contraindication: Treatment Not Indicated VTE Drug Contraindication: N/A - Med Ordered
[2023-01-29] MEDS: carvediloL 6.25 MG TABLET PO (21:40)
[2023-01-29 21:48] LABS: Glucose, Whole Blood 256 mg/dL (60-115)
--- NOTE | 2023-01-30 | ECG_ITS ---
Test Reason : chest pain Blood Pressure : / mmHG Vent. Rate : 113 BPM Atrial Rate : 113 BPM P-R Int : 154 ms QRS Dur : 140 ms QT Int : 372 ms P-R-T Axes : 049 -31 088 degrees QTc Int : 510 ms Sinus tachycardia Possible Left atrial enlargement Left axis deviation Right bundle branch block Abnormal ECG When compared with ECG of 23-JAN-2023 10:46, T wave inversion no longer evident in Inferior leads T wave inversion less evident in Lateral leads Referred By: Sohail Johnston Electronically Signed By:JASKARAN COOL
--- NOTE | 2023-01-30 00:35 | PC.NURSE ---
PT HAD REQUESTED IV BENADRYL FOR HER ITCHINESS ON PREVIOUS SHIFT.DR DURAN ORDERED HYDROXYZINE PRN.UPON ENTERING ROOM TO GIVE PATIENT THE HYDROXYZINE,SHE STATED I CAN'T TAKE THAT,IT MAKES MY BODY WEIRD . STATING SHE WANTS IV BENADRYL AND STATED THAT HER CHEST HURTS AND WANTS TO SEE THE DOCTOR.DR DURAN NOTIFIED. STATES HE IS AVOIDING IV DILAUDID AND BENADRYL.ORDERED STAT EKG AND TROPONINS FOR THE CHEST PAIN.EKG DONE AND SENT TO MD WITH NO ACUTE CHANGES.WHEN PHLEBOTOMY ENTERED ROOM FOR TROPONINS,PT REFUSED LAB DRAWS.ROGER SAHU UPDATED. STATES HE WILL ORDER BENADRYL 50MG PO X 1 ONLY. ALSO UPDATED THAT BP IS 135/66,SCHEDULED IV HYDRALAZINE DUE. STATES TO HOLD MED.
[2023-01-30] MEDS: diphenhydrAMINE HCL 25 MG CAPSULE 50 MG PO (02:29)
[2023-01-30 04:00] VITALS: BP 138/71; PULSE 107; RESP 18; TEMP 36.6; O2SAT 99
[2023-01-30 08:04] LABS: Glucose, Whole Blood 240 mg/dL (60-115)
[2023-01-30] MEDS: Insulin Lispro 100 UNIT/ML 3 ML VIAL SUBCUT ×2 (08:22→21:13)
[2023-01-30] MEDS: 0.9 % Sodium Chloride Flush 3 ML SYRINGE IVFLUSH ×2 (08:22→15:30)
[2023-01-30 10:52] VITALS: BP 141/76; PULSE 105; RESP 18; TEMP 36.9; O2SAT 98
[2023-01-30 10:52] LABS: Glucose, Whole Blood 96 mg/dL (60-115)
--- NOTE | 2023-01-30 13:11 | HO.PM.IMPN ---
Subjective Subjective Date of Service: 01/30/23 Interval History: nausea Review of Systems Nausea vomiting seems to be improved,taking po c/o dizziness Physical Exam Vital Signs: Vital Signs: Last Vital Signs Temp 98.5 F 01/30/23 10:52 Pulse 105 H 01/30/23 10:52 Resp 18 01/30/23 10:52 BP 141/76 H 01/30/23 10:52 Pulse Ox 98 01/30/23 10:52 O2 Del Method Room Air 01/30/23 10:52 BMI result Body Mass Index 24.4 Appearance: Alert.? Oriented X3.? cvs: rrr, [id number] , no murmur res: clear to auscultation ,no rhonchii or wheezing abd: no rebound or guarding ,nt, bs present. ext pulses present , no cyanosis . neuro: axo3 , movesall ext Objective Data Active Medications Acetaminophen (Acetaminophen 325 Mg Tablet) 650 mg PO Q6H PRN PRN Reason: Pain, Mild (Pain Scale 1-3) Aspirin (Aspirin Enteric Coated 81 Mg Tablet.) 81 mg PO DAILY [facility] Last Admin: 01/29/23 09:46 Dose: Not Given Documented By: LARRY Non-Admin Reason: Patient Refused Aspirin (Aspirin Enteric Coated 81 Mg Tablet.) 81 mg PO ONCE ONE Stop: 01/30/23 13:10 Atorvastatin Calcium (Atorvastatin Calcium 40 Mg Tablet) 40 mg PO BEDTIME [facility] Last Admin: 01/29/23 21:39 Dose: Not Given Documented By: GONZÁLEZ Non-Admin Reason: Patient Refused Carvedilol (Carvedilol 6.25 Mg Tablet) 6.25 mg PO BID [facility]; Protocol Last Admin: 01/30/23 08:22 Dose: Not Given Documented By: CHET Non-Admin Reason: Patient Refused Dextrose (Dextrose 50 % 25 Gm/50 Ml Syringe) 25 gm IVPUSH Q15M PRN; Protocol PRN Reason: per Hypoglycemia Standing Ord. Glucose (Glucose Gel 15 Gm Gel..Gram.) 15 gm PO Q15M PRN; Protocol PRN Reason: per Hypoglycemia Standing Ord. Insulin Human Lispro (Insulin Lispro 100 Unit/Ml 3 Ml Vial) 0 unit SUBCUT QIDACHS [facility]; Protocol Last Admin: 01/30/23 10:54 Dose: Not Given Documented By: CHET Non-Admin Reason: No Insulin Coverage Losartan Potassium (Losartan Potassium 25 Mg Tablet) 25 mg PO DAILY [facility]; Protocol Last Admin: 01/30/23 08:22 Dose: Not Given Documented By: CHET Non-Admin Reason: Patient Refused Metoclopramide HCl (Metoclopramide Hcl 10 Mg/2 Ml Vial) 5 mg IVPUSH Q6H PRN PRN Reason: Nausea and Vomiting Last Admin: 01/28/23 23:14 Dose: 5 mg Documented By: BUZZ Omeprazole (Omeprazole 20 Mg Capsule.) 20 mg PO DAILY@0630 [facility] Last Admin: 01/30/23 06:06 Dose: Not Given Documented By: JONATHAN Non-Admin Reason: Patient Refused Sodium Chloride (0.9 % Sodium Chloride Flush 3 Ml Syringe) 3 ml IVFLUSH QSHIFT [facility] Last Admin: 01/30/23 08:22 Dose: 3 ml Documented By: CHET Labs 01/26/23 09:30 01/26/23 09:30 Labs: Laboratory Results - last 24 hr 01/29/23 01/29/23 01/30/23 16:21 21:43 07:56 POC Glucose 263 H 256 H 240 H 01/30/23 10:41 POC Glucose 96 Assessment and Plan (1) ESRD on dialysis: Status: Acute (2) End-stage renal disease (ESRD): Status: Acute Plan 32-year-old female past medical history of uncontrolled hypertension, noncompliant with medications, ESRD on dialysis not compliant, diabetes, diabetic retinopathy and neuropathy, comes into the hospital with nausea vomiting as well as hypertensive urgency -patient has had multiple admissions in the past for similar findings and presentation Htn :controlled htn improving poor compliance with therapies in house. continue coreg for better bp control,continue losartan ,also added iv hydralazine prn for bp control. dizziness -likley labile bp,dec po intake ,esrd hold losatran for today moniter bp possible nstemi: ekg-inferior /lateral trop:[id number] echo last in : 35-40% ef ekg-less likely qtc prolong,possible rbbb. myocardial perfusion imaging which shows low risk. No significant ischemic burden to suggest her LV systolic dysfunction. continue asa ,statin,bb. cardiology following Acute CHF exacerbation resolved with dialysis follow clinically ESRD on dialysis receive dialysis in-house with good response nephrology following Intractable nausea vomiting-likely secondary to gastroparesis in the setting of diabetes monitor symptoms-patient has small amount of vomitin , antiemetics , reglan Diabetes- noncompliant with medications place on low-dose sliding scale insulin diabetic diet possible TIa: ct head neg mri added neurology jannetteal noted-cotninue asa,statin,htn control mri-done -no new stroke ,retintal changes( righ>left suretinal hameorrage -mri in mar) d/w radiologist -they will place addendum on mri, if further change in retinal changes ,we can reach opthalmologyagain ,currently no management chnage recomended from opthalmology ( spoke to Dr Edmondson). patient says she is legally blind. Heparin subQ Full code ongoing hospitalization : Multifactorial issues-decreased p.o. intake, says dizziness in setting of in the setting of fluctuating BP, also MRI for addendum is pending( please see above ). Quality Stroke Does the patient have a stroke diagnosis?: No VTE Prior VTE?: No VTE Risk Level:: Medical - moderate - high VTE Device Contraindication: Treatment Not Indicated VTE Drug Contraindication: N/A - Med Ordered
[2023-01-30] MEDS: Aspirin Enteric Coated 81 MG TABLET.DR PO (15:29)
[2023-01-30 15:33] VITALS: BP 177/84; PULSE 106; RESP 18; TEMP 36.3; O2SAT 98
--- NOTE | 2023-01-30 15:38 | HO.WOUND ---
Wound Consult: Follow up 32yr old female admitted to [facility] on?01/21/23- See progress notes and H&P for detailed history. . Direct care nurse requested wound assessment. Left Plantar Foot Etiology: Diabetic Foot wound Measurements: 1cm x 0.8cm x 0.4cm Wound Bed: Dry desiccated tissue - dressing adherent to wound bed Drainage / Odor: no odor no drainage noted Edges: ? callused and dirty Pao wound: ? No Induration, No Fluctuance, No Erythema, No Warmth - no S/S of active infection Pain: Denies reports neuropathy Goals of Treatment: ? Wound gel to allow for moist wound bed - wound bed is dry and void of moisture Recommendations: 1. Turn and Reposition every 2 hours and as needed for patient comfort. 2. Off Load all bony prominences with use of pillows and heel boots as needed. 3. Provide adequate and supplemental nutrition. 4. Maintain blood glucose levels per Providers orders. 5. Left Plantar foot - Off Load Pressure - Cleanse with NS, Pat dry. Apply Wound gel to wound bed followed by dry gauze, Abd Pad, gauze wrap secure with tape. Change Daily.
--- NOTE | 2023-01-30 16:01 | P.PNNP_ITS ---
Subjective Subjective Date of Service: 01/30/23 Principal diagnosis: Cardiomyopathy Interval history: Seen and edxamined, event snoted Physical Exam 2 Vital Signs: Vital Signs: Last Vital Signs Temp 97.4 F 01/30/23 15:33 Pulse 106 H 01/30/23 15:33 Resp 18 01/30/23 15:33 BP 177/84 H 01/30/23 15:33 Pulse Ox 98 01/30/23 15:33 O2 Del Method Room Air 01/30/23 15:33 BMI result Body Mass Index 24.4 Const: Other: Awake alert visibly uncomfortable General: comfortable, no acute distress, alert and awake Nutritional Appearance: average body habitus HEENT: Head: Yes normocephalic and Yes atraumatic Neck: Neck: Yes trachea midline, Yes supple and Yes no JVD Chest: Chest palpation & inspection: normal inspection of the chest Resp: Other: Clear to auscultation bilaterally no rales rhonchi or wheezes Effort & Inspection: decreased respiratory effort Auscultation: no rales, no wheezes and diminished lung sounds Cardio: Other: No S4; positive S1-S2; no S3 murmurs rubs or gallops Jugular venous distension: no JVD Palpation: abnormal PMI displaced PMI Rate: tachycardic Rhythm: regular rhythm Heart sounds: S1 normal heart sound present, S2 normal heart sound present, no click, no gallops and no murmurs GI: Other: Soft nontender nondistended normoactive bowel sounds Palpation (GI): Soft to palpation and nontender Auscultation: normal bowel sounds Skin: General skin exam: no rashes or lesions noted Neuro: Other: She is alert and awake with normal spontaneity of speech fluency comprehension and depressed affect. Right eye is opaque. Left pupil is round reactive. Face seems symmetrical. She was able to use a right hand but when I asked to show me 2 fingers with left hand she did but slowly. He was not lifting her left arm up against gravity. She was also partly flexed and resistant to examination. Toes were missing while she was able to move her feet. Deep tendon reflexes were absent. General: moves all extremities Extrem: Other: No edema bilaterally General: Yes no clubbing, cyanosis or edema and Yes no pedal edema Objective Data Labs 01/26/23 09:30 01/26/23 09:30 Labs: Laboratory Results - last 24 hr 01/29/23 01/29/23 01/30/23 16:21 21:43 07:56 POC Glucose 263 H 256 H 240 H 01/30/23 10:41 POC Glucose 96 Procedures Date of Service Date of Service: 01/30/23 Assessment & Plan Assessment and plan (1) Intractable nausea and vomiting: Status: Resolved (2) Abdominal pain: Status: Inactive Plan 32 YF with HTN, CHFrEF,? ESRD on dialysis Sunday,? DM, diabetic retinopathy, peripheral vascular disease, diabetic gastroparesis, chronic hypoxemic respiratory failure on baseline oxygen admitted to [facility] on 01/21/23 with intractable nausea vomiting and miss dialysis x2 - her symptoms are likely related to uremia due to missed dialysis. Patient informed the admitting hospitalist that she did not go to dialysis because she had significant nausea vomiting and was not feeling well. 1. ESRD: mwf 2. Gen pain and N/V: w/u in progress will add amylase/lipase to am labs; may need CTA of abd to r/o meseteric ischemia ( non-obs vs true stensosi); GI-eval REC: cont HD 3x/wk; meds as noted; consider CTA of abd Will follow w team Time Spent With Patient Time: Total time managing care of this patient today ____ minutes. Progress Note: Quality Stroke Does the patient have a stroke diagnosis?: No
[2023-01-30 17:16] LABS: Glucose, Whole Blood 177 mg/dL (60-115)
[2023-01-30 19:22] VITALS: BP 197/97; PULSE 116; RESP 20; TEMP 36.3; O2SAT 99
[2023-01-30 19:23] LABS: Troponin-I High Sensitivity 61.5 ng/L (<3.5-17.0)
[2023-01-30] MEDS: carvediloL 6.25 MG TABLET PO (19:55)
[2023-01-30] MEDS: Atorvastatin Calcium 40 MG TABLET PO (19:57)
[2023-01-30 20:38] LABS: Glucose, Whole Blood 318 mg/dL (60-115)
[2023-01-31] VITALS: BP 173/86; PULSE 108; RESP 20; TEMP 36.6; O2SAT 98
[2023-01-31 03:14] VITALS: BP 148/79; PULSE 110; RESP 18; TEMP 36.9; O2SAT 98
[2023-01-31] MEDS: Aspirin Enteric Coated 81 MG TABLET.DR PO (09:27)
[2023-01-31] MEDS: carvediloL 6.25 MG TABLET PO (09:27)
[2023-01-31 09:30] VITALS: BP 188/96; PULSE 114; RESP 20; TEMP 37.6; O2SAT 99
--- NOTE | 2023-01-31 11:11 | PM.PNNEP ---
Subjective Subjective Date of Service: 01/31/23 Principal diagnosis: Cardiomyopathy Interval history: Seen and edxamined, event noted Physical Exam Vital Signs: Vital Signs: Last Vital Signs Temp 99.7 F 01/31/23 09:30 Pulse 114 H 01/31/23 09:30 Resp 20 01/31/23 09:30 BP 188/96 H 01/31/23 09:30 Pulse Ox 99 01/31/23 09:30 O2 Del Method Room Air 01/31/23 09:30 BMI result Body Mass Index 24.4 Const: Other: Awake alert visibly uncomfortable General: comfortable, no acute distress, alert and awake Nutritional Appearance: average body habitus HEENT: Head: Yes normocephalic and Yes atraumatic Neck: Neck: Yes trachea midline, Yes supple and Yes no JVD Chest: Chest palpation & inspection: normal inspection of the chest Resp: Other: Clear to auscultation bilaterally no rales rhonchi or wheezes Effort & Inspection: decreased respiratory effort Auscultation: no rales, no wheezes and diminished lung sounds Cardio: Other: No S4; positive S1-S2; no S3 murmurs rubs or gallops Jugular venous distension: no JVD Palpation: abnormal PMI displaced PMI Rate: tachycardic Rhythm: regular rhythm Heart sounds: S1 normal heart sound present, S2 normal heart sound present, no click, no gallops and no murmurs GI: Other: Soft nontender nondistended normoactive bowel sounds Palpation (GI): Soft to palpation and nontender Auscultation: normal bowel sounds Skin: General skin exam: no rashes or lesions noted Neuro: Other: She is alert and awake with normal spontaneity of speech fluency comprehension and depressed affect. Right eye is opaque. Left pupil is round reactive. Face seems symmetrical. She was able to use a right hand but when I asked to show me 2 fingers with left hand she did but slowly. He was not lifting her left arm up against gravity. She was also partly flexed and resistant to examination. Toes were missing while she was able to move her feet. Deep tendon reflexes were absent. General: moves all extremities Extrem: Other: No edema bilaterally General: Yes no clubbing, cyanosis or edema and Yes no pedal edema Objective Data Labs 01/26/23 09:30 01/26/23 09:30 Labs: Laboratory Results - last 24 hr 01/30/23 01/30/23 01/30/23 17:03 18:23 20:22 POC Glucose 177 H 318 H Troponin I High Sens 61.5 H* D Procedures Date of Service Date of Service: 01/31/23 Assessment & Plan Assessment and plan (1) Intractable nausea and vomiting: Status: Resolved (2) Abdominal pain: Status: Inactive Plan 32 YF with HTN, CHFrEF,? ESRD on dialysis Sunday,? DM, diabetic retinopathy, peripheral vascular disease, diabetic gastroparesis, chronic hypoxemic respiratory failure on baseline oxygen admitted to [facility] on 01/21/23 with intractable nausea vomiting and miss dialysis x2 - her symptoms are likely related to uremia due to missed dialysis. Patient informed the admitting hospitalist that she did not go to dialysis because she had significant nausea vomiting and was not feeling well. 1. ESRD: mwf 2. Gen pain and N/V: w/u in progress may need CTA of abd to r/o meseteric ischemia ( non-obs vs true stensosi); GI-eval REC: cont HD 3x/wk; meds as noted; consider CTA of abd Will follow w team Time Spent With Patient Time: Total time managing care of this patient today ____ minutes. Progress Note: Quality Stroke Does the patient have a stroke diagnosis?: No
[2023-01-31 11:30] VITALS: BP 157/81; PULSE 111; RESP 20; TEMP 37.6; O2SAT 98
[2023-01-31 11:30] LABS: Glucose, Whole Blood 145 mg/dL (60-115)
[2023-01-31 11:35] LABS: Glucose, Whole Blood 239 mg/dL (60-115)
[2023-01-31] MEDS: Insulin Lispro 100 UNIT/ML 3 ML VIAL SUBCUT (11:49)
--- NOTE | 2023-01-31 12:04 | PM.DS ---
DS: Providers Provider Date of Service: 01/31/23 Date of admission: 01/21/23 01:18 Primary care physician: Abdon Beard MD Consults: 01/21/23 01:17 Consult to Nephrology Routine Consulting Provider: [facility] Reason for consultation: missed dialysis Has provider been notified: Yes 01/22/23 04:21 Consult to Wound Care Routine Reason for consultation: Diabetic ulcer L foot sole 01/23/23 14:18 Consult to Cardiology Routine Consulting Provider: [facility] Reason for consultation: elevated trop 01/24/23 09:29 Consult to Psychiatry Routine Consulting Provider: [facility] Reason for consultation: Competency evaluation Has provider been notified: No 01/24/23 13:40 Consult to Neurology Routine Consulting Provider: [facility] Reason for consultation: left side numbness -?Tia vs cva Has provider been notified: No 01/26/23 09:14 Consult to Gastroenterology Routine Consulting Provider: [facility] Gastroenterology Services Reason for consultation: ABD PAIN Has provider been notified: No DS: Diagnosis Discharge Diagnosis (1) Intractable nausea and vomiting: Status: Resolved (2) Abdominal pain: Status: Inactive DS: Summary Hospital Course Hospital Course: from initial hpi: Chief Complaint: Intractable nausea vomiting This is a well-known 32-year-old female to our service with a past medical history of ESRD on dialysis MWF, mostly noncompliant, diabetes with nephropathy and legally blind, difficult to control hypertension, noncompliant with meds or dialysis, with frequent hospitalization related to missed dialysis, accelerated hypertension nausea vomiting as well as generalized PN. She comes back to the hospital today with intractable nausea vomiting and miss dialysis x2. Patient is crying, in distress due to the pain, she tells me that she did not go to dialysis because she had significant nausea vomiting and was not feeling well. She also states that she has not been taking any of her medications as her primary care physician told her to stop taking her medications. Of note patient was discharged from the hospital on 01/07 for uncontrolled hypertension On arrival to the ED patient found to have blood pressure of 225/134, improved after receiving hydralazine multiple times, she also had multiple episodes of vomiting, refusing to take Zofran Patient also complaining chest pain right-sided, worse with nausea vomiting On arrival her labs are significant for WBC count of 8.6, hemoglobin of 10.4, hematocrit 34.1 which is around her baseline, pH of 7.47, chloride of 116, potassium of 3.5, sodium 135, BUN of 39, creatinine of 3.06, calcium 6.2, troponin of 17 increased to 21, albumin of 2.2 Chest x-ray showing cardiomegaly and pleural effusion hospital course: Patient was admitted for hypertensive urgency. Medications were adjusted and blood pressure became better controlled. Will be discharged on carvedilol, losartan. For acute on chronic systolic CHF she was continued on dialysis with negative fluid balance. For end-stage renal disease was continue hemodialysis. For intractable nausea vomiting due to gastroparesis due to diabetes was given antiemetics and prokinetics, now tolerating solid diet. For diabetes was continue on insulin. Patient had an episode of left-sided paresthesias. She was seen by neurology recommended MRI. Which was negative for acute stroke. 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 Patient is feeling better will be discharged home. Time Attestation Discharge coordination time: Greater than 30 minutes Quality: Safe Use of Opioids Does Pt have an Active Cancer Diagnosis on the Problem List?: No Quality: Stroke Does the patient have a stroke diagnosis?: No Physical Exam Vital Signs: Vital Signs: Last Vital Signs Temp 99.6 F 01/31/23 11:30 Pulse 111 H 01/31/23 11:30 Resp 20 01/31/23 11:30 BP 157/81 H 01/31/23 11:30 Pulse Ox 98 01/31/23 11:30 O2 Del Method Room Air 01/31/23 11:30 BMI result Body Mass Index 24.4 Const: Other: Awake alert visibly uncomfortable General: comfortable, no acute distress, alert and awake Nutritional Appearance: average body habitus HEENT: Head: Yes normocephalic and Yes atraumatic Neck: Neck: Yes trachea midline, Yes supple and Yes no JVD Chest: Chest palpation & inspection: normal inspection of the chest Resp: Other: Clear to auscultation bilaterally no rales rhonchi or wheezes Effort & Inspection: decreased respiratory effort Auscultation: no rales, no wheezes and diminished lung sounds Cardio: Other: No S4; positive S1-S2; no S3 murmurs rubs or gallops Jugular venous distension: no JVD Palpation: abnormal PMI displaced PMI Rate: tachycardic Rhythm: regular rhythm Heart sounds: S1 normal heart sound present, S2 normal heart sound present, no click, no gallops and no murmurs GI: Other: Soft nontender nondistended normoactive bowel sounds Palpation (GI): Soft to palpation and nontender Auscultation: normal bowel sounds Skin: General skin exam: no rashes or lesions noted Neuro: Other: She is alert and awake with normal spontaneity of speech fluency comprehension and depressed affect. Right eye is opaque. Left pupil is round reactive. Face seems symmetrical. She was able to use a right hand but when I asked to show me 2 fingers with left hand she did but slowly. He was not lifting her left arm up against gravity. She was also partly flexed and resistant to examination. Toes were missing while she was able to move her feet. Deep tendon reflexes were absent. General: moves all extremities Extrem: Other: No edema bilaterally General: Yes no clubbing, cyanosis or edema and Yes no pedal edema DS: Data Data Completed and Pending Completed studies during hospitalization [Text1]: Procedures Detachment at Right Foot, Partial 1st Ray, Open Approach (03/01/20) Detachment at Right Foot, Partial 2nd Ray, Open Approach (03/01/20) Detachment at Right Foot, Partial 3rd Ray, Open Approach (03/01/20) Detachment at Right Foot, Partial 4th Ray, Open Approach (03/01/20) Detachment at Right Foot, Partial 5th Ray, Open Approach (03/01/20) Drainage of Right Pleural Cavity, Percutaneous Approach (01/14/21) Excision of Left Foot Skin, External Approach (12/29/22) Excision of Stomach, Pylorus, Via Natural or Artificial Opening Endoscopic, Diagnostic (08/27/22) Fluoroscopy of Superior Vena Cava, Guidance (08/14/22) Insertion of Infusion Device into Right Atrium, Percutaneous Approach (08/14/22) Insertion of Infusion Device into Superior Vena Cava, Percutaneous Approach (01/14/21) Insertion of Tunneled Vascular Access Device into Chest Subcutaneous Tissue and Fascia, Percutaneous Approach (08/14/22) Performance of Urinary Filtration, Intermittent, Less than 6 Hours Per Day (12/29/22) Removal of Infusion Device from Great Vessel, External Approach (01/14/21) Transfusion of Nonautologous Red Blood Cells into Peripheral Vein, Percutaneous Approach (04/22/22) Labs on day of discharge: Laboratory Results - last 24 hr 01/30/23 01/30/23 01/30/23 17:03 18:23 20:22 POC Glucose 177 H 318 H Troponin I High Sens 61.5 H* D 01/31/23 01/31/23 09:26 11:32 POC Glucose 145 H 239 H Troponin I High Sens Discharge Plan Discharge Anticipated Discharge Date/Time: 01/29/23 10:52 Patient Disposition: Home, Self-Care Discharge Diagnosis: nausea vomiting likely due to esrd and noncomplance ,nsetmi ,htn uncontrolled ,tia Referrals: Abdon Beard MD [Primary Care Provider] - 1 Week Discharge Medications: New atorvastatin 40 mg Tablet 40 mg PO BEDTIME Qty: 30 0RF carvedilol 6.25 mg Tablet 6.25 mg PO BID Qty: 60 0RF Protocol: Hold for SBP/HR < HOLD for SBP < : 90 HOLD for HR < : 60 aspirin 81 mg Tablet,Delayed Release (Dr/Ec) 81 mg PO DAILY Qty: 30 0RF losartan 25 mg Tablet 25 mg PO DAILY Qty: 30 0RF Protocol: Hold for SBP< HOLD for SBP < : 90 omeprazole 20 mg Capsule,Delayed Release(Dr/Ec) 20 mg PO DAILY@0630 Qty: 30 0RF metoclopramide HCl [Reglan] 5 mg tablet 5 mg PO DAILY PRN (Reason: nausea and vomiting) Qty: 20 0RF Continued torsemide 20 mg tablet 40 mg PO BID glipizide 2.5 mg tablet extended release 24hr 2.5 mg PO DAILY docusate sodium 100 mg capsule 100 mg PO DAILY PRN (Reason: constipation) Discontinued clonidine [[id number]] 0.3 mg/24 hr Patch Weekly 0.3 mg transdermal Fr@0900 Qty: 4 0RF Protocol: Hold for SBP< HOLD for SBP < : 90 atorvastatin 40 mg tablet 40 mg PO BEDTIME clopidogrel 75 mg tablet 75 mg PO DAILY Rx Instructions: la aspirin 81 mg tablet,delayed release (DR/EC) 81 mg PO DAILY losartan 25 mg tablet 25 mg PO DAILY fentanyl 25 mcg/hr patch 72 hour 1 patch topical Q3D omeprazole 40 mg capsule,delayed release(DR/EC) 40 mg PO QAM nifedipine 60 mg tablet extended release 60 mg PO DAILY Diet: Advance to usual diet Activity on Discharge: As tolerated Stand Alone Forms: Patient Portal Discharge page Care Plan Goals: recovery Health Concerns: htn Plan of Treatment: follow up nephro, optho Assessment: see above
[2023-01-31 14:56] VITALS: BP 151/80; PULSE 98; RESP 18; TEMP 36.8; O2SAT 99
--- NOTE | 2023-01-31 15:24 | MHC.CM.PN ---
Second IMM given 02/01. Pt is medically cleared for D/C home with her sister/[employer]. Pts sister Josy will transport her home.
== END 2023-01-31 16:15 | disposition home or self-care (01) | DRG 280 ==
LOC: HO.ED 20:52 → HO.EDOVER 01-21 01:23 → HO.IMC 01-21 14:04
PROVIDERS: Hospitalist; Internal Medicine; Internal Medicine Nephrology; Physician Assistant; Admitting Provider Internal Medicine; Emergency Provider Emergency Medicine Emergency Medical Services; PCP Internal Medicine; Visit Provider Internal Medicine
DX: I16.0 Hypertensive urgency (principal); I50.23 Acute on chronic systolic (congestive) heart failure; I21.4 Non-ST elevation (NSTEMI) myocardial infarction; N18.6 End stage renal disease; I43 Cardiomyopathy in diseases classified elsewhere; G45.9 Transient cerebral ischemic attack, unspecified; I13.2 Hypertensive heart and chronic kidney disease with heart failure and with stage 5 chronic kidney disease, or end stage renal disease; E11.22 Type 2 diabetes mellitus with diabetic chronic kidney disease; Z99.2 Dependence on renal dialysis; H54.8 Legal blindness, as defined in USA; D63.1 Anemia in chronic kidney disease; E11.51 Type 2 diabetes mellitus with diabetic peripheral angiopathy without gangrene; E83.51 Hypocalcemia; E11.65 Type 2 diabetes mellitus with hyperglycemia; R20.2 Paresthesia of skin; E87.5 Hyperkalemia; E11.319 Type 2 diabetes mellitus with unspecified diabetic retinopathy without macular edema; H35.043 Retinal micro-aneurysms, unspecified, bilateral; E11.43 Type 2 diabetes mellitus with diabetic autonomic (poly)neuropathy; K31.84 Gastroparesis; Z91.158 Patient's noncompliance with renal dialysis for other reason; Z91.148 Patient's other noncompliance with medication regimen for other reason; Z20.822 Contact with and (suspected) exposure to COVID-19; Z79.82 Long term (current) use of aspirin; Z79.84 Long term (current) use of oral hypoglycemic drugs; Z79.899 Other long term (current) drug therapy
CPT/HCPCS: 0241U; 36415; 70450; 70551; 71045; 78452; 80048; 80053; 80061; 82010; 82728; 82803; 82947; 83540; 83735; 83880; 84484; 85014; 85018; 85025; 85730; 90999; 93005; 93017; 93308; 99285; A9500; C9113; J0280; J0360; J0613; J0885; J1170; J1200; J1644; J2060; J2405; J2550; J2765; J2785; J3475; Q9957

== ENCOUNTER 2023-01-21 01:18 | Outpatient (BNV) | payer OTHER, SELFPAY | END 2023-01-30 00:51 | PROVIDERS: Admitting Provider Internal Medicine; Emergency Provider Emergency Medicine Emergency Medical Services; PCP Internal Medicine; Visit Provider Internal Medicine | DX: R00.0 Tachycardia, unspecified (principal); R94.31 Abnormal electrocardiogram [ECG] [EKG] | CPT/HCPCS: 93010 ==

== ENCOUNTER 2023-01-21 01:18 | Outpatient (BNV) | payer OTHER, SELFPAY | END 2023-01-24 10:29 | PROVIDERS: Admitting Provider Internal Medicine; Emergency Provider Emergency Medicine Emergency Medical Services; PCP Internal Medicine; Visit Provider Nurse Practitioner | DX: I25.10 Atherosclerotic heart disease of native coronary artery without angina pectoris (principal) | CPT/HCPCS: 78452; 93016; 93018; 93308 ==

== ENCOUNTER → 2023-01-21 01:18 | Outpatient (BNV) | payer OTHER, SELFPAY | PROVIDERS: Admitting Provider Internal Medicine; Emergency Provider Emergency Medicine Emergency Medical Services; PCP Internal Medicine; Visit Provider Internal Medicine Cardiovascular Disease | DX: I50.20 Unspecified systolic (congestive) heart failure (principal) | CPT/HCPCS: 99222; 99233 ==

== ENCOUNTER → 2023-01-21 01:18 | Outpatient (BNV) | payer OTHER, SELFPAY | PROVIDERS: Admitting Provider Internal Medicine; Emergency Provider Emergency Medicine Emergency Medical Services; PCP Internal Medicine; Visit Provider Internal Medicine Gastroenterology | DX: R11.2 Nausea with vomiting, unspecified (principal); R10.9 Unspecified abdominal pain | CPT/HCPCS: 99222 ==

== ENCOUNTER → 2023-01-21 01:18 | Outpatient (BNV) | payer OTHER, SELFPAY | PROVIDERS: Admitting Provider Internal Medicine; Emergency Provider Emergency Medicine Emergency Medical Services; Visit Provider Internal Medicine | DX: R11.2 Nausea with vomiting, unspecified (principal); R10.9 Unspecified abdominal pain | CPT/HCPCS: 99223; 99231; 99232; 99233; 99239; 99499 ==

== ENCOUNTER → 2023-01-21 01:18 | Outpatient (BNV) | payer OTHER, SELFPAY | PROVIDERS: Admitting Provider Internal Medicine; Emergency Provider Emergency Medicine Emergency Medical Services; PCP Internal Medicine; Visit Provider Social Worker | DX: F33.0 Major depressive disorder, recurrent, mild (principal); N18.6 End stage renal disease; Z99.2 Dependence on renal dialysis | CPT/HCPCS: 99231 ==

== ENCOUNTER 2023-03-07 13:06 | Emergency (ER) | payer OTHER, SELFPAY ==
--- NOTE | ~2023-03-07 | US_ITS ---
EXAMINATION: NONINVASIVE ASSESSMENT OF THE ARTERIES OF THE LEFT LOWER EXTREMITY Kareem Weathers MD CLINICAL INFORMATION: Left lower extremity pain TECHNIQUE: Left lower extremity duplex ultrasound was performed with velocity measurements and waveform analysis in the common femoral arteries, profunda femoris arteries, proximal mid and distal superficial femoral arteries, popliteal arteries and tibial vessels. This study was performed only at rest. COMPARISON: None FINDINGS: Velocities in cm/sec and phasicity as well as the presence of plaque are reported below. LEFT LEG: Scattered plaque is seen but triphasic flow is noted throughout. No areas of velocity acceleration are seen to suggest a focal stenosis. The distal posterior tibial artery is occluded. Common Femoral: 84 Profunda Femoris: 63 Proximal SFA: 94 Mid SFA: 113 Distal SFA: 100 Popliteal: 89 Proximal posterior tibial: 55 Mid posterior tibial: 25 Distal posterior tibial: Occluded Peroneal: 43 Anterior tibial: 109 Dorsalis pedis: 46 US/US arterial duplex LE LT IMPRESSION: Mild plaque with triphasic flow throughout and no convincing evidence of any hemodynamically significant lower extremity arterial disease by waveform or duplex Doppler criteria at rest. However, the distal posterior tibial artery is occluded.
--- NOTE | ~2023-03-07 | US_ITS ---
EXAMINATION: US VENOUS ULTRASOUND WITH DOPPLER LOWER EXTREMITY, LEFT CLINICAL INFORMATION: Left leg pain COMPARISON: None available. TECHNIQUE: Ultrasound of the deep veins is performed from the hip to the calf with compression sonography and color and pulse Doppler assessment. Compression was limited secondary to patient's inability to tolerate. Spectral analysis with color-flow imaging is performed. FINDINGS: There is normal venous compression (where possible) and respiratory variation and augmented flow. The visualized common femoral vein, superficial femoral vein, profunda femoral vein, popliteal vein, and the trifurcation region shows no evidence of deep venous thrombosis. There is no significant popliteal fossa cyst. If the patient's symptoms persist, followup ultrasound in 5 days 7 days might be of value to exclude proximal propagation from a non-visualized calf vein. US/US venous duplex LE IMPRESSION: No DVT demonstrated in the left lower extremity.
--- NOTE | 2023-03-07 13:13 | ECG_ITS ---
Test Reason : ESRD, DM Blood Pressure : / mmHG Vent. Rate : 101 BPM Atrial Rate : 101 BPM P-R Int : 156 ms QRS Dur : 140 ms QT Int : 406 ms P-R-T Axes : 034 -11 050 degrees QTc Int : 526 ms Sinus tachycardia Possible Left atrial enlargement Right bundle branch block Abnormal ECG When compared with ECG of 30-JAN-2023 00:51, T wave inversion no longer evident in Anterior leads Referred By: Ivette Kincaid Electronically Signed By:HATTIE BAÑUELOS MD
[2023-03-07 13:27] VITALS: BP 190/109; BP 197/101; PULSE 109; PULSE 110; RESP 18; TEMP 36.6; O2SAT 96; O2SAT 98; BMI 23.4
--- NOTE | 2023-03-07 13:35 | ED.GENADULT ---
HPI - General Adult General Chief complaint: General Medical Stated complaint: HIGH BP 205/109,WEAK,MISSED DIALYSIS T-1 PER EMS Time Seen by Provider: 03/07/23 13:12 Source: patient and EMS Mode of arrival: EMS History of Present Illness HPI narrative: 32-year-old female who is poorly compliant on medications, diabetes, dialysis arrives via EMS with reports of RSV exposure, missed dialysis yesterday and has complaints about body aches, high blood pressure and stating that her left lower extremity is painful and is become much worse since yesterday. Related Data Home Medications Medication Instructions Recorded Confirmed docusate sodium 100 mg capsule 100 mg PO DAILY PRN constipation 01/29/23 01/29/23 glipizide 2.5 mg tablet, extended 2.5 mg PO DAILY 01/29/23 01/29/23 release 24 hr torsemide 20 mg tablet 40 mg PO BID 01/29/23 01/29/23 Previous Rx's Medication Instructions Recorded aspirin 81 mg tablet,delayed 81 mg PO DAILY #30 tabs 01/29/23 release atorvastatin 40 mg tablet 40 mg PO BEDTIME #30 tabs 01/29/23 carvedilol 6.25 mg tablet 6.25 mg PO BID #60 tabs 01/29/23 losartan 25 mg tablet 25 mg PO DAILY #30 tabs 01/29/23 metoclopramide HCl 5 mg tablet 5 mg PO DAILY PRN nausea and 01/29/23 (Reglan) vomiting #20 tabs omeprazole 20 mg capsule,delayed 20 mg PO DAILY@0630 #30 caps 01/29/23 release Allergies Allergy/AdvReac Type Severity Reaction Status Date / Time morphine [MORPHINE] Allergy Intermediate Itching Verified 03/07/23 13:18 azithromycin [From Zithromax] Allergy Hives Verified 03/07/23 13:18 gabapentin Allergy Facial Verified 03/07/23 13:18 Swelling tramadol Allergy Facial Verified 03/07/23 13:18 Swelling vancomycin Allergy Hives Verified 03/07/23 13:18 Review of Systems Review of Systems: Pertinent positives and negatives as stated in the HPI [facility] Past Medical History Source: nursing notes reviewed Onset Date is defined in the Problem List Problems that require an onset date and time if occurred within 24 hrs of arrival to the ED Aortic Dissection and Rupture; Neurologic impairment; Cardiopulmonary Arrest; Endotracheal Intubation; Insertion or Replacement of Mechanical Circulatory Assist Device Medical History HFrEF (heart failure with reduced ejection fraction) ESRD on dialysis Migraine Diabetic foot ulcer associated with type 2 diabetes mellitus Chronic pain Gastroparesis Non-compliance with renal dialysis Hypertension Hypertensive emergency Diabetes ESRD needing dialysis Cardiomyopathy Metabolic acidosis delivery delivered Anemia in chronic kidney disease (CKD) CKD (chronic kidney disease) Headache, migraine Abnormal finding on echocardiogram Elevated troponin Chest pain Acute worsening of stage 3 chronic kidney disease Generalized edema Sepsis Cellulitis Pleural effusion CHF (congestive heart failure) (~06/07/22) Tachycardia Atypical chest pain Bone infection PAD (peripheral artery disease) Severe anemia Cellulitis and abscess of foot DM foot ulcer Osteomyelitis test positive test positive Asthma Depression with anxiety Diabetic retinopathy Type 2 diabetes mellitus with hyperglycemia, with long-term current use of insulin Blind right eye Diabetes Back pain Surgical History 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 Family History Family History Mother Coronary artery disease Myocardial infarction Stroke Diabetes mellitus Father Myocardial infarction Social History Social History Household Members: Unknown / Unable to assess Household Members Other:: Sister, [id number], nephew Housing: Unknown / Unable to assess Do you presently have visiting nurse or other home services: No (unknown) Alcohol intake: never Comment: refuses camera Patient Tobacco Use Status: Never used Tobacco Smoked in Last 30 Days: No e-Cigarette/Vaping Use: Never Used Second Hand Smoke Exposure: No Use of substances other than those prescribed or required for medical reasons: No Advance Directives: Yes Advance Directives on File: Yes Advance Directives Date on File: 03/08/20 service: No Current occupational status: unemployed and disabled Gender identity: Female Physical Exam ED Vital Signs: Vital Signs - 24 hr 03/07/23 13:27 03/07/23 14:41 03/07/23 15:21 Temperature 97.8 F Pulse Rate 110 H 101 H 105 H Respiratory Rate 18 18 20 Blood Pressure 190/109 H 182/116 H 179/99 H Pulse Oximetry 98 98 98 Oxygen Delivery Method Room Air Room Air Room Air BMI result Body Mass Index 23.4 VITAL SIGNS: Reviewed. GENERAL: Well nourished, in no acute distress. HEAD: Normocephalic/atraumatic EYES: OD- patient is blind in this eye with opacity over the lens/cornea;OS: PERRLA, EOMI EARS: Ext canals without abnormality NOSE: Nares patent bilateral OROPHARYNX: no oral lesions noted, posterior pharynx clear NECK: Supple, no adenopathy LUNGS: Normal breath sounds. No adventitious sounds or accessory muscle use. SpO2<98> CARDIOVASCULAR: Regular rate and rhythm without noted murmurs, no JVD or lower extremity edema. ABDOMEN: Soft, non-tender, non-distended with bowel sounds. MUSCULOSKELETAL: No tenderness, deformities, or effusions noted on gross inspection. EXTREMITIES: No cyanosis, clubbing or edema. LEFT FOOT: mal perforans wound that is quite deep, foot is warm without obvious erythema/induration SKIN: Inspection of the skin reveals no rashes, as above picture NEUROLOGIC: Alert and oriented x 4. Strength and sensation to light touch were grossly intact x 4. Medications Administered Discontinued Medications Generic Name Dose Route Start Last Admin Trade Name Freq PRN Reason Stop Dose Admin Carvedilol 12.5 mg 03/07/23 14:42 03/07/23 15:17 Carvedilol 12.5 Mg Tablet PO 03/07/23 14:43 12.5 mg ONCE ONE Administration Protocol Hydralazine HCl 25 mg 03/07/23 14:42 03/07/23 15:17 Hydralazine Hcl 25 Mg Tablet PO 03/07/23 14:43 25 mg ONCE ONE Administration Protocol Nitroglycerin 0.5 inch 03/07/23 13:27 03/07/23 13:50 Nitroglycerin 2 % Oint 1 Gm Packet TRANSDERMA 03/07/23 13:28 0.5 inch ONCE ONE Administration Medical Decision Making Medical Decision Making MDM Narrative: 32-year-old female with history and clinical presentation, DDX: Viral illness but will only be able to test for COVID/influenza as laboratory does not have RSV available, patient will receive Tylenol for suspected body aches, patient will also undergo venous/arterial duplex of the left lower extremity although doubt acute arterial occlusion there is a possibility of DVT and patient has prior history. There is a mild perforans wound that I also suspect given patient's history will be unable to heal with simple dressing changes. I reviewed investigations and hematologic indices are negative for leukocytosis, patient is afebrile, patient has chronically stable normocytic anemia likely of chronic disease and secondary to ESRD. There is no thrombocytopenia There is no evidence of acute bleeding. Coagulation studies demonstrate a prolonged PT which is chronic and INR is within normal limits. Chemistry indices are reflective of patient's missed dialysis session and the noted metabolic acidosis again a reflection of renal disease as otherwise no evidence to suggest DKA. There is no electrolyte derangement and liver enzymes are otherwise within normal limits. Viral testing negative for COVID-19/influenza but suspect that patient likely has RSV infection at this time. Venous duplex is negative for left lower extremity DVT and arterial duplex without acute findings until distal posterior tibial which is reported as occluded and likely contributing to patient's plantar wound. 1518: I reached out to vascular surgeon, Dr. Arias to discuss findings complete occlusion of distal posterior tibial. He recommends outpatient follow-up and patient will be provided with a referral to follow-up with Dr. Arias. In addition, patient's blood pressure has improved she will be given recommendations for symptomatic treatment of suspected viral infection and otherwise instructed to follow-up with her scheduled dialysis tomorrow. Differential Diagnosis Differential Diagnoses: The differential diagnosis associated with the presentation includes Please see the discussion above Admission/Observation Consideration of admission/observation: Escalation of care including admission/observation considered Please see the discussion above Consult Healthcare Provider Management of the patient was discussed with: Development Associate Please see the discussion above Lab Data MDM Lab Attestation statement: I reviewed the patient's lab results. Please see the discussion above 03/07/23 13:53 03/07/23 13:53 Labs: Lab Results 03/07/23 03/07/23 Range/Units 13:35 13:53 WBC 7.5 (4.8-10.8) X10*3/uL RBC 2.95 L D (4.20-5.50) X10*6/uL Hgb 9.1 L D (12.0-16.0) g/dl Hct 28.9 L D (37.0-47.0) % MCV 98.0 (80.0-98.0) fL MCH 30.8 (27.0-33.0) pg MCHC 31.5 (31.0-35.0) g/dl RDW 18.6 H (11.0-16.0) % Plt Count 162 (160-400) X10*3/uL MPV 12.2 (9.4-12.3) fL Immature Gran % (Auto) 0.4 (0.0-0.4) % Neut % (Auto) 87.9 H (45-73) % Lymph % (Auto) 5.9 L (20-40) % [place] % (Auto) 4.6 (2-11) % Eos % (Auto) 0.8 (0-4) % Baso % (Auto) 0.4 (0-2) % Lymph # (Auto) 0.4 L (1.2-4.9) X10*3/uL [place] # (Auto) 0.3 (0.1-1.2) X10*3/uL Eos # (Auto) 0.1 (0.0-0.4) X10*3/uL Baso # (Auto) 0.0 (0.0-0.2) X10*3/uL Abs Immat Gran (auto) 0.03 (0.00-0.03) X10*3/uL Absolute Neuts (auto) 6.6 (2.0-8.3) x10*3/uL Absolute Nucleated RBC 0.000 (0.0-0.012) X10*3/uL Nucleated RBC % (auto) 0.0 (0.0-0.2) /100WBC PT 13.8 H (11.1-13.3) SEC INR 1.1 (0.9-1.1) Sodium 136 (135-145) mmol/L Potassium 4.7 (3.3-5.1) mmol/L Chloride 108 (96-108) mmol/L Carbon Dioxide 17 L (22-29) mmol/L Anion Gap 16 (12-20) BUN 69 H (9-16) mg/dL Creatinine 5.07 H* (0.5-1.4) mg/dL Estim Creat Clear Calc 14.6 Estimated GFR 10 Random Glucose 193 H (60-115) mg/dL Calcium 8.6 (8.4-10.2) mg/dL Total Bilirubin 1.2 H (0.0-1.0) mg/dL AST 13 (5-31) U/L ALT 20 (0-31) U/L Alkaline Phosphatase 104 (39-117) U/L Total Protein 7.3 (6.5-8.0) g/dL Albumin 3.4 L (3.5-5.0) g/dL COVID-19 ([facility]) Negative (Negative) COVID-19 Clin Com See Note Influenza Type A ([facility]) Negative (Negative) Influenza Type B ([facility]) Negative (Negative) Influenza A & B Note See Note Independent Interpretation I performed an independent interpretation of an: EKG Interpretation: Sinus tachycardia, HR-101, no STEMI, chronic RBBB, MT within normal limits, QRS/QTC baseline, Radiology Impression Discussion of test interpretation with radiology: I have reviewed the radiologist's reading. Radiologist Impression: Please see the discussion above External Record Review External record reviewed: Outpatient record, Prior outpatient labs and Prior outpatient radiology Chronic Conditions Patient?s care impacted by: Diabetes, Hypertension and Other ESRD on dialysis Critical Care Time Critical Care Time Critical Care Time: Yes Total Critical Care Time: 60 Attestation: I personally attest to this time spent taking care of the patient. Discharge Plan Discharge Clinical Impression: ESRD on dialysis, Posterior tibial artery insufficiency, Viral syndrome, Non-healing wound of left lower extremity Patient Disposition: Home, Self-Care Instructions: Peripheral Artery Disease (ED), Viral Syndrome (ED), End Stage Kidney Disease (ED), Chronic Wounds (ED) Additional Instructions: 1. Resume all home medications as prescribed. 2. Go to your dialysis appointment tomorrow as scheduled. 3. You need to follow-up with Dr. Arias, the vascular surgeon, who will see you in the outpatient setting regarding your left lower extremity. There is no evidence of DVT. 4. You have also been given a referral for [facility] and you should call today and make an arrangement for an appointment. Return to the ER for any worsening symptoms. Prescriptions: No Action atorvastatin 40 mg Tablet 40 mg PO BEDTIME Qty: 30 0RF carvedilol 6.25 mg Tablet 6.25 mg PO BID Qty: 60 0RF Protocol: Hold for SBP/HR < HOLD for SBP < : 90 HOLD for HR < : 60 aspirin 81 mg Tablet,Delayed Release (Dr/Ec) 81 mg PO DAILY Qty: 30 0RF losartan 25 mg Tablet 25 mg PO DAILY Qty: 30 0RF Protocol: Hold for SBP< HOLD for SBP < : 90 omeprazole 20 mg Capsule,Delayed Release(Dr/Ec) 20 mg PO DAILY@0630 Qty: 30 0RF metoclopramide HCl [Reglan] 5 mg tablet 5 mg PO DAILY PRN (Reason: nausea and vomiting) Qty: 20 0RF torsemide 20 mg tablet 40 mg PO BID glipizide 2.5 mg tablet extended release 24hr 2.5 mg PO DAILY docusate sodium 100 mg capsule 100 mg PO DAILY PRN (Reason: constipation) Referrals: Nomi Arias MD [Physician] - [facility] [Provider Group]
[2023-03-07] MEDS: Nitroglycerin 2 % Oint 1 GM Packet 0.5 INCH TRANSDERMA (13:50)
[2023-03-07 14:05] LABS: MANUAL DIFF FLAG NO
[2023-03-07 14:06] LABS: COVID-19 Test Negative (Negative); IDNOW Serial# 58CA691E
[2023-03-07 14:08] LABS: IDNOW Serial# 9DB6401D; Influenza A Negative (Negative); Influenza B2 Negative (Negative)
--- NOTE | 2023-03-07 14:14 | PC.NURSE ---
Ultrasound at the bedside at this time.
[2023-03-07 14:15] LABS: Basophils Percent Auto 0.4 % (0-2); Eosinophils Absolute Auto 0.1 X10*3/uL (0.0-0.4); Eosinophils Percent Auto 0.8 % (0-4); Hematocrit 28.9 % (37.0-47.0); Hemoglobin 9.1 g/dl (12.0-16.0); INTERNATIONAL NORM RATIO 1.1 (0.9-1.1); Imm Gran Abs Auto 0.03 X10*3/uL (0.00-0.03); Imm Gran Pct Auto 0.4 % (0.0-0.4); Lymphocytes Absolute Auto 0.4 X10*3/uL (1.2-4.9); Lymphocytes Percent Auto 5.9 % (20-40); Mean Corpuscular HGB Conc 31.5 g/dl (31.0-35.0); Mean Corpuscular Hemoglobin 30.8 pg (27.0-33.0); Mean Platelet Volume 12.2 fL (9.4-12.3); Monocytes Absolute Auto 0.3 X10*3/uL (0.1-1.2); Monocytes Percent Auto 4.6 % (2-11); Neutrophils Absolute Auto 6.6 x10*3/uL (2.0-8.3); Neutrophils Percent Auto 87.9 % (45-73); Platelet Count 162 X10*3/uL (160-400); Prothrombin Time 13.8 SEC (11.1-13.3); Red Blood Count 2.95 X10*6/uL (4.20-5.50); Red Cell Distribution Width 18.6 % (11.0-16.0); White Blood Count 7.5 X10*3/uL (4.8-10.8)
[2023-03-07 14:29] LABS: Alanine Aminotransferase 20 U/L (0-31); Albumin Level 3.4 g/dL (3.5-5.0); Alkaline Phosphatase 104 U/L (39-117); Anion Gap 16 (12-20); Aspartate Amino Transferase 13 U/L (5-31); Bilirubin Total 1.2 mg/dL (0.0-1.0); Blood Urea Nitrogen 69 mg/dL (9-16); Calcium 8.6 mg/dL (8.4-10.2); Carbon Dioxide 17 mmol/L (22-29); Chloride 108 mmol/L (96-108); Creatinine Clr Calc Pharmacy 14.6; Estimated Glomerular Filt Rate 10; Glucose Random 193 mg/dL (60-115); Potassium 4.7 mmol/L (3.3-5.1); Sodium 136 mmol/L (135-145); Total Protein 7.3 g/dL (6.5-8.0)
[2023-03-07 14:41] VITALS: BP 182/116; PULSE 101; RESP 18; O2SAT 98
[2023-03-07] MEDS: carvediloL 12.5 MG TABLET PO (15:17)
[2023-03-07] MEDS: hydrALAZINE HCl 25 MG TABLET PO (15:17)
[2023-03-07 15:21] VITALS: BP 179/99; PULSE 105; RESP 20; O2SAT 98
--- NOTE | 2023-03-07 15:55 | PC.NURSE ---
assumed care of pt at 1500, pt restless in bed reporting increased pain to bilateral lower extremities. pt medicated per APR, had removed nitro patch d/t itching. skin WNL, no redness noted.
[2023-03-07 16:06] VITALS: BP 136/82; PULSE 87; RESP 16; O2SAT 98
== END 2023-03-07 16:17 | disposition home or self-care (01) ==
PROVIDERS: Emergency Provider Student in an Organized Health Care Education/Training Program
DX: I73.9 Peripheral vascular disease, unspecified (principal); B34.9 Viral infection, unspecified; S91.302A Unspecified open wound, left foot, initial encounter; X58.XXXA Exposure to other specified factors, initial encounter; Z11.52 Encounter for screening for COVID-19; M79.605 Pain in left leg; E11.22 Type 2 diabetes mellitus with diabetic chronic kidney disease; I13.2 Hypertensive heart and chronic kidney disease with heart failure and with stage 5 chronic kidney disease, or end stage renal disease; I50.33 Acute on chronic diastolic (congestive) heart failure; N18.6 End stage renal disease; Z99.2 Dependence on renal dialysis; Z91.158 Patient's noncompliance with renal dialysis for other reason; Z91.148 Patient's other noncompliance with medication regimen for other reason; Z79.899 Other long term (current) drug therapy; Z79.02 Long term (current) use of antithrombotics/antiplatelets; Y93.9 Activity, unspecified; Y92.9 Unspecified place or not applicable; Y99.9 Unspecified external cause status
CPT/HCPCS: 36415; 80053; 85025; 85610; 87502; 87635; 93005; 93926; 93971; 99284

== ENCOUNTER → 2023-03-07 13:13 | Outpatient (BNV) | payer OTHER, SELFPAY | PROVIDERS: Emergency Provider Student in an Organized Health Care Education/Training Program; Visit Provider Internal Medicine Cardiovascular Disease | DX: R00.0 Tachycardia, unspecified (principal); R94.31 Abnormal electrocardiogram [ECG] [EKG] | CPT/HCPCS: 93010 ==

== ENCOUNTER 2023-03-10 15:49 | Inpatient (IN) | payer OTHER, SELFPAY ==
[2023-03-10] VITALS (7 sets, daily range): BP systolic 176–220; BP diastolic 90–108; PULSE 99–135; RESP 14–32; TEMP 36.6–37.1; O2SAT 94–98; BMI 28.2
--- NOTE | ~2023-03-10 | MR_ITS ---
EXAMINATION: MR FOOT WITHOUT AND WITH CONTRAST, LEFT CLINICAL INFORMATION: Plantar midfoot ulcer. Evaluate for osteomyelitis. COMPARISON: CT 03/10/2023. TECHNIQUE: MRI of the left foot was performed before and after the intravenous administration of 7.5 mL Gadavist on a high-field scanner. FINDINGS: There is a shallow soft tissue defect/ulcer plantar to the midfoot with mild edema and intermediate signal of the subcutaneous fat which may represent cellulitis. No abscess. The underlying plantar fascia is intact. There is no evidence to suggest osteomyelitis. Chronic partially healed fractures/subluxations across the midfoot, some of which are partially fused, as demonstrated on the CT compatible with a neuropathic foot. No acute fracture. Noted is amputation at the proximal aspect of the 1st metatarsal. MR/MR foot LT wo/w con IMPRESSION: Shallow soft tissue defect/ulcer plantar to the midfoot with possible cellulitis. No abscess. No evidence of osteomyelitis. Charcot foot.
--- NOTE | ~2023-03-10 | CT_ITS ---
EXAMINATION: CT FOOT WITHOUT CONTRAST, LEFT CLINICAL INFORMATION: Deep and plantar area, question bone involvement COMPARISON: CT left foot 06/09/2022. TECHNIQUE: Thin slice axial CT of the left foot was obtained without intravenous contrast. Multiplanar sagittal and coronal reformats were created on a dedicated technologist workstation for interpretation. This CT examination was performed using dose optimization techniques as appropriate, variously including the following: *Automated exposure control *Adjustment of mA and/or kV according to patient size (this includes techniques or standardized protocols for targeted exams where dose is matched to indication/reason for exam; i.e. extremities or head) *Use of iterative reconstruction technique DLP: 186 mGy-cm FINDINGS: SOFT TISSUES: Skin defect at the plantar aspect of the midfoot, spanning 1.9 x 2.2 cm, with surrounding skin thickening and confluent subjacent inflammatory fat stranding/phlegmon, with stranding extending to the plantar surface of the cuboid and middle tarsometatarsal joints. No discrete, fluid collections are identified, within limitations of noncontrast technique. Additional, diffuse subcutaneous fat stranding of the left foot throughout. OSSEOUS STRUCTURES: Redemonstrated postoperative appearance from left first transmetatarsal amputation. Redemonstrated extensive multifocal chronic osseous erosions throughout the midfoot, most pronounced at the navicular, cuneiforms, and tarsometatarsal joints, grossly similar in degree to 06/09/2022. No new large erosions identified. Redemonstrated fragmentation of the navicular bone with extensive mid foot sag and deformity. CT/CT foot LT wo IV con IMPRESSION: 1. Skin defect at the plantar aspect of the midfoot, with subjacent inflammatory fat stranding/phlegmon extending to the plantar surface of the cuboid and middle tarsometatarsal joints. While the burden of the midfoot osseous erosions are similar to 06/09/2022, extension of fluid into the bone surface raises the possibility for acute osteomyelitis and MRI may be obtained for further assessment 2. No discrete fluid collections are identified, within limitations of noncontrast technique.
--- NOTE | 2023-03-10 16:38 | ED.WOUNDLAC ---
HPI - Wound/Laceration General Chief Complaint: Wound/Laceration Stated Complaint: Foot infection Time Seen by Provider: 03/10/23 16:33 Source: patient Mode of arrival: EMS Limitations: no limitations History of Present Illness HPI narrative: Patient 32 years old with history of end-stage renal disease on dialysis M,W,F, diabetes with nephropathy and equally blind hypertension with neuropathic foot with chronic nonhealing wound left sole of the foot with peripheral vascular disease was seen here 03/07/2023 for missed dialysis comes here as since discharge he noticed follow order smell and discharge and increased pain from the wound which has been there for a long time with deep callus with granulation tissue no fever no chills patient is legally blind her sister saw the pus coming out. [facility] Related Data Home Medications Medication Instructions Recorded Confirmed docusate sodium 100 mg capsule 100 mg PO DAILY PRN constipation 01/29/23 01/29/23 glipizide 2.5 mg tablet, extended 2.5 mg PO DAILY 01/29/23 01/29/23 release 24 hr torsemide 20 mg tablet 40 mg PO BID 01/29/23 01/29/23 Previous Rx's Medication Instructions Recorded aspirin 81 mg tablet,delayed 81 mg PO DAILY #30 tabs 01/29/23 release atorvastatin 40 mg tablet 40 mg PO BEDTIME #30 tabs 01/29/23 carvedilol 6.25 mg tablet 6.25 mg PO BID #60 tabs 01/29/23 losartan 25 mg tablet 25 mg PO DAILY #30 tabs 01/29/23 metoclopramide HCl 5 mg tablet 5 mg PO DAILY PRN nausea and 01/29/23 (Reglan) vomiting #20 tabs omeprazole 20 mg capsule,delayed 20 mg PO DAILY@0630 #30 caps 01/29/23 release Allergies Allergy/AdvReac Type Severity Reaction Status Date / Time morphine [MORPHINE] Allergy Intermediate Itching Verified 03/07/23 13:18 azithromycin [From Zithromax] Allergy Hives Verified 03/07/23 13:18 gabapentin Allergy Facial Verified 03/07/23 13:18 Swelling tramadol Allergy Facial Verified 03/07/23 13:18 Swelling Review of Systems Review of Systems: Yes all other systems are reviewed and are negative PMFSH Past Medical History Onset Date is defined in the Problem List Problems that require an onset date and time if occurred within 24 hrs of arrival to the ED Aortic Dissection and Rupture; Neurologic impairment; Cardiopulmonary Arrest; Endotracheal Intubation; Insertion or Replacement of Mechanical Circulatory Assist Device Medical History HFrEF (heart failure with reduced ejection fraction) ESRD on dialysis Migraine Diabetic foot ulcer associated with type 2 diabetes mellitus Chronic pain Gastroparesis Non-compliance with renal dialysis Hypertension Hypertensive emergency Diabetes ESRD needing dialysis Cardiomyopathy Metabolic acidosis delivery delivered Anemia in chronic kidney disease (CKD) CKD (chronic kidney disease) Headache, migraine Abnormal finding on echocardiogram Elevated troponin Chest pain Acute worsening of stage 3 chronic kidney disease Generalized edema Sepsis Cellulitis Pleural effusion CHF (congestive heart failure) (~06/07/22) Tachycardia Atypical chest pain Bone infection PAD (peripheral artery disease) Severe anemia Cellulitis and abscess of foot DM foot ulcer Osteomyelitis test positive test positive Asthma Depression with anxiety Diabetic retinopathy Type 2 diabetes mellitus with hyperglycemia, with long-term current use of insulin Blind right eye Diabetes Back pain Surgical History 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 Family History Family History Mother Coronary artery disease Myocardial infarction Stroke Diabetes mellitus Father Myocardial infarction Social History Social History Household Members: Unknown / Unable to assess Household Members Other:: Sister, [id number], nephew Housing: Unknown / Unable to assess Do you presently have visiting nurse or other home services: No (unknown) Alcohol intake: never Comment: refuses camera Patient Tobacco Use Status: Never used Tobacco Smoked in Last 30 Days: No e-Cigarette/Vaping Use: Never Used Second Hand Smoke Exposure: No Use of substances other than those prescribed or required for medical reasons: No Advance Directives: Yes Advance Directives on File: Yes Advance Directives Date on File: 03/08/20 service: No Current occupational status: unemployed and disabled Gender identity: Female Physical Exam Vital Signs: Vital Signs: Last Vital Signs Temp 98.3 F 03/11/23 00:57 Pulse 107 H 03/11/23 00:57 Resp 19 03/11/23 00:57 BP 173/92 H 03/11/23 00:57 Pulse Ox 98 03/11/23 00:57 O2 Del Method Nasal Cannula 03/11/23 00:57 O2 Flow Rate 6 03/11/23 00:57 BMI result Body Mass Index 28.2 Appearance: Alert. Oriented X3. No acute distress. Eyes: Right eye opacified, left legally blind ENT: Pharynx normal. Oral Mucosa moist Neck: Normal inspection. Neck supple. CVS: Normal heart rate and rhythm. Pulses normal. Respiratory: No respiratory distress. Equal air entry bilateral, Abdomen: Soft and nontender. Bowel sounds are present, Skin: Skin warm and dry. Normal skin color. Normal skin turgor. Extremities: No lower extremity edema. No calf tenderness amputated greater trochanter left foot and metatarsal amputation right foot Neuro: Oriented X 3. No motor deficit. Sensory deficit to light touch and pinprick lower extremity Medications Administered Generic Name Dose Route Start Last Admin Trade Name Freq PRN Reason Stop Dose Admin Heparin Sodium (Porcine) 5,000 unit 03/10/23 22:00 03/10/23 21:41 Heparin Sodium,Porcine 5,000 Unit/Ml Vial SUBCUT Not Given Q8H VASILE Hydromorphone HCl 0.5 mg 03/10/23 21:45 03/10/23 22:04 Hydromorphone Hcl 0.5 Mg/0.5 Ml Syringe IVPUSH 0.5 mg Q6H PRN Administration Pain, Severe (Pain Scale 7-10) Protocol Metoclopramide HCl 5 mg 03/10/23 21:45 03/10/23 22:03 Metoclopramide Hcl 10 Mg/2 Ml Vial IVPUSH 5 mg Q6H PRN Administration Nausea and Vomiting Sodium Chloride 3 ml 03/11/23 00:00 03/11/23 00:33 0.9 % Sodium Chloride Flush 3 Ml Syringe IVFLUSH 3 ml QSHIFT [facility] Administration Discontinued Medications Generic Name Dose Route Start Last Admin Trade Name Freq PRN Reason Stop Dose Admin Carvedilol 12.5 mg 03/10/23 23:19 03/10/23 23:40 Carvedilol 12.5 Mg Tablet PO 03/10/23 23:20 12.5 mg ONCE ONE Administration Protocol Hydromorphone HCl 1 mg 03/10/23 16:43 03/10/23 17:40 Hydromorphone Hcl 1 Mg/Ml Syringe IVPUSH 03/10/23 16:44 1 mg ONCE ONE Administration Protocol Sodium Chloride 1,000 mls @ 999 mls/hr 03/10/23 16:42 03/10/23 19:17 Ns IV 03/10/23 17:42 Infused .Q1H1M ONE Infusion Piperacillin Sod/Tazobactam 50 mls @ 100 mls/hr 03/10/23 19:38 03/10/23 22:04 Sod 2.25 gm/ Sodium Chloride IV 03/10/23 20:07 Infused ONCE ONE Infusion Vancomycin HCl 2,000 mg in 520 mls @ 250 mls/hr 03/10/23 19:45 03/10/23 23:44 Vancomycin/Ns IV 03/10/23 21:49 Infused ONCE ONE Infusion Losartan Potassium 25 mg 03/10/23 23:37 03/11/23 00:32 Losartan Potassium 25 Mg Tablet PO 03/10/23 23:38 25 mg ONCE ONE Administration Protocol Ondansetron HCl 4 mg 03/10/23 16:43 03/10/23 17:40 Ondansetron Hcl 4 Mg/2 Ml Vial IVPUSH 03/10/23 16:44 4 mg ONCE ONE Administration Medical Decision Making Medical Decision Making [facility] Narrative: Patient with chronic nonhealing wound of left foot history of osteomyelitis on the right foot noncompliant to the treatment CT scan shows fluid around possible acute osteomyelitis admit patient for IV antibiotic and further evaluation Differential Diagnosis Differential Diagnoses: The differential diagnosis associated with the presentation includes Deeper space infection/osteomyelitis Admission/Observation Consideration of admission/observation: Escalation of care including admission/observation considered Consult Healthcare Provider Management of the patient was discussed with: Hospitalist Lab Data [facility] Lab Attestation statement: I reviewed the patient's lab results. 03/10/23 17:34 03/10/23 17:34 Labs: Lab Results 03/10/23 Range/Units 17:34 WBC 5.2 (4.8-10.8) X10*3/uL RBC 3.01 L (4.20-5.50) X10*6/uL Hgb 9.2 L (12.0-16.0) g/dl Hct 29.6 L (37.0-47.0) % MCV 98.3 H (80.0-98.0) fL MCH 30.6 (27.0-33.0) pg MCHC 31.1 (31.0-35.0) g/dl RDW 17.7 H (11.0-16.0) % Plt Count 163 (160-400) X10*3/uL MPV 11.9 (9.4-12.3) fL Immature Gran % (Auto) 0.2 (0.0-0.4) % Neut % (Auto) 79.9 H (45-73) % Lymph % (Auto) 8.3 L (20-40) % [place] % (Auto) 9.1 (2-11) % Eos % (Auto) 2.1 (0-4) % Baso % (Auto) 0.4 (0-2) % Lymph # (Auto) 0.4 L (1.2-4.9) X10*3/uL [place] # (Auto) 0.5 (0.1-1.2) X10*3/uL Eos # (Auto) 0.1 (0.0-0.4) X10*3/uL Baso # (Auto) 0.0 (0.0-0.2) X10*3/uL Abs Immat Gran (auto) 0.01 (0.00-0.03) X10*3/uL Absolute Neuts (auto) 4.2 (2.0-8.3) x10*3/uL Absolute Nucleated RBC 0.000 (0.0-0.012) X10*3/uL Nucleated RBC % (auto) 0.0 (0.0-0.2) /100WBC ESR 59 H (0-20) MM/HR Sodium 135 (135-145) mmol/L Potassium 4.2 (3.3-5.1) mmol/L Chloride 105 (96-108) mmol/L Carbon Dioxide 21 L (22-29) mmol/L Anion Gap 13 (12-20) BUN 36 H (9-16) mg/dL Creatinine 4.30 H* (0.5-1.4) mg/dL Estim Creat Clear Calc 19.6 Estimated GFR 12 Random Glucose 202 H (60-115) mg/dL Calcium 8.3 L (8.4-10.2) mg/dL Total Bilirubin 1.1 H (0.0-1.0) mg/dL AST 26 (5-31) U/L ALT 17 (0-31) U/L Alkaline Phosphatase 106 (39-117) U/L C-Reactive Protein 0.71 H (< or = 0.50) mg/dL Total Protein 7.2 (6.5-8.0) g/dL Albumin 3.2 L (3.5-5.0) g/dL Independent Interpretation I performed an independent interpretation of an: CT Scan Radiology Impression Discussion of test interpretation with radiology: I have reviewed the radiologist's reading. Radiologist Impression: CT/CT foot LT wo IV con IMPRESSION: 1. Skin defect at the plantar aspect of the midfoot, with subjacent inflammatory fat stranding/phlegmon extending to the plantar surface of the cuboid and middle tarsometatarsal joints. While the burden of the midfoot osseous erosions are similar to 06/09/2022, extension of fluid into the bone surface raises the possibility for acute osteomyelitis and MRI may be obtained for further assessment 2. No discrete fluid collections are identified, within limitations of noncontrast technique. Discharge Plan Discharge Clinical Impression: Acute osteomyelitis of left foot, End-stage renal disease (ESRD) Patient Disposition: Admitted As Inpatient
[2023-03-10 17:39] LABS: MANUAL DIFF FLAG NO
[2023-03-10] MEDS: HYDROmorphone HCl 1 MG/ML SYRINGE IVPUSH (17:40)
[2023-03-10] MEDS: ondansetron HCL 4 MG/2 ML VIAL IVPUSH (17:40)
[2023-03-10] MEDS: 0.9 % Sodium Chloride 1,000 ML 999 ML IV (17:40)
[2023-03-10 17:41] LABS: Basophils Percent Auto 0.4 % (0-2); Eosinophils Absolute Auto 0.1 X10*3/uL (0.0-0.4); Eosinophils Percent Auto 2.1 % (0-4); Hematocrit 29.6 % (37.0-47.0); Hemoglobin 9.2 g/dl (12.0-16.0); Imm Gran Abs Auto 0.01 X10*3/uL (0.00-0.03); Imm Gran Pct Auto 0.2 % (0.0-0.4); Lymphocytes Absolute Auto 0.4 X10*3/uL (1.2-4.9); Lymphocytes Percent Auto 8.3 % (20-40); Mean Corpuscular HGB Conc 31.1 g/dl (31.0-35.0); Mean Corpuscular Hemoglobin 30.6 pg (27.0-33.0); Mean Corpuscular Volume 98.3 fL (80.0-98.0); Mean Platelet Volume 11.9 fL (9.4-12.3); Monocytes Absolute Auto 0.5 X10*3/uL (0.1-1.2); Monocytes Percent Auto 9.1 % (2-11); Neutrophils Absolute Auto 4.2 x10*3/uL (2.0-8.3); Neutrophils Percent Auto 79.9 % (45-73); Platelet Count 163 X10*3/uL (160-400); Red Blood Count 3.01 X10*6/uL (4.20-5.50); Red Cell Distribution Width 17.7 % (11.0-16.0); White Blood Count 5.2 X10*3/uL (4.8-10.8)
[2023-03-10 18:19] LABS: Alanine Aminotransferase 17 U/L (0-31); Albumin Level 3.2 g/dL (3.5-5.0); Alkaline Phosphatase 106 U/L (39-117); Anion Gap 13 (12-20); Aspartate Amino Transferase 26 U/L (5-31); Bilirubin Total 1.1 mg/dL (0.0-1.0); Blood Urea Nitrogen 36 mg/dL (9-16); C Reactive Protein 0.71 mg/dL (< or = 0.50); Calcium 8.3 mg/dL (8.4-10.2); Carbon Dioxide 21 mmol/L (22-29); Chloride 105 mmol/L (96-108); Creatinine Clr Calc Pharmacy 19.6; Estimated Glomerular Filt Rate 12; Glucose Random 202 mg/dL (60-115); Potassium 4.2 mmol/L (3.3-5.1); Sodium 135 mmol/L (135-145); Total Protein 7.2 g/dL (6.5-8.0)
[2023-03-10 18:24] LABS: Erythrocyte Sedimentation Rate 59 MM/HR (0-20)
--- NOTE | 2023-03-10 20:32 | P.HPHOSP_ITS ---
History of Present Illness Date of Service: 03/10/23 Attending physician on admission: Lele Maria Chief Complaint: Foot infection Pt is a 32-year-old female with a PMH significant for?ESRD on dialysis Sun/Sun, diabetes with neuropathy and retinopathy, legally blind, difficult to control HTN, noncompliant with meds or dialysis, and with frequent hospitalization related to missed dialysis, accelerate HTN, nausea/vomiting, and pain who presents to the ED for evaluation of worsening left foot wound. Pt was most recently seen in the ED three days prior on 03/07/2023 for missed dialysis and possible exposure to RSV. At that time had arterial duplex of left lower extremity which found mild plaque with triphasic flow throughout and no convincing evidence of any hemodynamically significant lower extremity arterial disease, but did show distal posterior tibial artery occlusion. ED clinician reached out to Dr. Arias to discuss findings who suggested outpatient follow-up. Pt reports since then she has noticed wound on the bottom of her midfoot to have increased in size and started draining a foul-smelling, purulent discharge. Apparently has had this wound for 1 1/2 years, taken care of by her sister. She has not been to wound care clinic for treatment or management. Denies fever or chills, but had one episode of nausea and vomiting while in the ED. No chest pain/pressure, palpitations. Denies SOB. In the ED pt was afebrile but tachycardic up to 102, and hypertensive up to 183/108, satting at 96% on RA. Labs were significant for stable H&H of 9.2/29.6, BUN 36, creatinine 4.30, ESR 59, CRP 0.71. Lactic acid pending. CT?or left foot found midfoot osseous erosions similar to 06/09/2022, but showed extension of fluid into the bone surface that raises possibility for acute osteomyelitis. Pt was treated with IVF, Dilaudid, ondansetron, Zosyn and vancomycin. Pt will be admitted to the hospital for treatment further evaluation of chronic nonhealing diabetic foot ulcer concerning for osteomyelitis. Review of Systems 2 Review of Systems: Going chronic nonhealing left foot ulcer with foul-smelling, purulent discharge Left foot pain Nausea, vomiting Denies fever, chills No chest pain/pressure, palpitations Denies shortness of breath PMFSH Medical History HFrEF (heart failure with reduced ejection fraction) ESRD on dialysis Migraine Diabetic foot ulcer associated with type 2 diabetes mellitus Chronic pain Gastroparesis Non-compliance with renal dialysis Hypertension Hypertensive emergency Diabetes ESRD needing dialysis Cardiomyopathy Metabolic acidosis delivery delivered Anemia in chronic kidney disease (CKD) CKD (chronic kidney disease) Headache, migraine Abnormal finding on echocardiogram Elevated troponin Chest pain Acute worsening of stage 3 chronic kidney disease Generalized edema Sepsis Cellulitis Pleural effusion CHF (congestive heart failure) (~06/07/22) Tachycardia Atypical chest pain Bone infection PAD (peripheral artery disease) Severe anemia Cellulitis and abscess of foot DM foot ulcer Osteomyelitis test positive test positive Asthma Depression with anxiety Diabetic retinopathy Type 2 diabetes mellitus with hyperglycemia, with long-term current use of insulin Blind right eye Diabetes Back pain Family History Mother Coronary artery disease Myocardial infarction Stroke Diabetes mellitus Father Myocardial infarction Surgical History 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 Social History Household Members: Unknown / Unable to assess Household Members Other:: Sister, [id number], nephew Housing: Unknown / Unable to assess Do you presently have visiting nurse or other home services: No (unknown) Alcohol intake: never Comment: refuses camera Patient Tobacco Use Status: Never used Tobacco Smoked in Last 30 Days: No e-Cigarette/Vaping Use: Never Used Second Hand Smoke Exposure: No Use of substances other than those prescribed or required for medical reasons: No Advance Directives: Yes Advance Directives on File: Yes Advance Directives Date on File: 03/08/20 service: No Current occupational status: unemployed and disabled Gender identity: Female Meds Allergies Allergy/AdvReac Type Severity Reaction Status Date / Time morphine [MORPHINE] Allergy Intermediate Itching Verified 03/07/23 13:18 azithromycin [From Zithromax] Allergy Hives Verified 03/07/23 13:18 gabapentin Allergy Facial Verified 03/07/23 13:18 Swelling tramadol Allergy Facial Verified 03/07/23 13:18 Swelling Active Medications: Current Medications Vancomycin HCl (Vancomycin/Ns) 2,000 mg in 520 mls @ 250 mls/hr IV ONCE ONE Stop: 03/10/23 21:49 Home Medications Medication Instructions Recorded Confirmed Last Taken Type docusate sodium 100 mg capsule 100 mg PO DAILY PRN constipation 01/29/23 01/29/23 Unknown History glipizide 2.5 mg tablet, extended 2.5 mg PO DAILY 01/29/23 01/29/23 Unknown History release 24 hr torsemide 20 mg tablet 40 mg PO BID 01/29/23 01/29/23 Unknown History Physical Exam 2 Vital Signs and Narrative: Vital Signs: Last Vital Signs Temp 98.6 F 03/10/23 17:43 Pulse 99 03/10/23 17:43 Resp 16 03/10/23 19:16 BP 176/101 H 03/10/23 17:43 Pulse Ox 98 03/10/23 17:43 O2 Del Method Room Air 03/10/23 17:43 BMI result Body Mass Index 28.2 Constitutional: Alert, in no acute distress. Mental Status: Oriented to person, place and time. Eyes: Pt legally blind in both eyes. Ear, Nose, and Throat: Oropharynx clear, mucous membranes moist. Ears and nose without deformities. Trachea midline. Respiratory: Clear to auscultation bilaterally. No wheezing, rales, or rhonchi. Cardiovascular: S1, S2 regular. No murmurs, rubs, or gallops. Gastrointestinal: Abdomen soft, non-tender, non-distended. Normal bowel sounds. Neurologic: Cranial nerves II-XII are grossly intact bilaterally. No focal neurological deficits. Moves all extremities spontaneously. Skin: Warm, dry. Musculoskeletal: No cyanosis or clubbing. Extremities: No edema. Right foot s/p TMA. Left foot with nonhealing chronic and foot ulcer as pictured below. No obvious erythema induration. With slight serosanguineous discharge, no foul odor appreciated. Psychiatric: Normal mood and affect. Results Labs 03/10/23 17:34 03/10/23 17:34 Labs: Laboratory Results - last 24 hr 03/10/23 17:34 MCV 98.3 H MCH 30.6 MCHC 31.1 RDW 17.7 H Plt Count 163 MPV 11.9 Immature Gran % (Auto) 0.2 Neut % (Auto) 79.9 H Lymph % (Auto) 8.3 L [place] % (Auto) 9.1 Eos % (Auto) 2.1 Baso % (Auto) 0.4 Lymph # (Auto) 0.4 L [place] # (Auto) 0.5 Eos # (Auto) 0.1 Baso # (Auto) 0.0 Abs Immat Gran (auto) 0.01 Absolute Neuts (auto) 4.2 Absolute Nucleated RBC 0.000 Nucleated RBC % (auto) 0.0 ESR 59 H Anion Gap 13 Estim Creat Clear Calc 19.6 Estimated GFR 12 Random Glucose 202 H Calcium 8.3 L Total Bilirubin 1.1 H AST 26 ALT 17 Alkaline Phosphatase 106 C-Reactive Protein 0.71 H Total Protein 7.2 Albumin 3.2 L Imaging Radiologist's Impressions: Impressions Foot CT 03/10/23 17:29 IMPRESSION: 1. Skin defect at the plantar aspect of the midfoot, with subjacent inflammatory fat stranding/phlegmon extending to the plantar surface of the cuboid and middle tarsometatarsal joints. While the burden of the midfoot osseous erosions are similar to 06/09/2022, extension of fluid into the bone surface raises the possibility for acute osteomyelitis and MRI may be obtained for further assessment 2. No discrete fluid collections are identified, within limitations of noncontrast technique. Assessment and Plan (1) Chronic ulcer of left foot due to diabetes mellitus: Status: Acute Plan Pt is a 32-year-old female with a PMH significant for?ESRD on dialysis Sun/Sun, diabetes with neuropathy and retinopathy, legally blind, difficult to control HTN, noncompliant with meds or dialysis, and with frequent hospitalization related to missed dialysis, accelerate HTN, nausea/vomiting, and pain who presents to the ED for evaluation of worsening left foot wound. Pt will be admitted to the hospital for treatment further evaluation of chronic nonhealing diabetic foot ulcer concerning for osteomyelitis. Chronic diabetic left foot ulcer Pt with increased pain, increased size of wound, and with purulent, foul- smelling discharge CT of foot with evidence concerning for acute osteomyelitis Elevated ESR, mildly elevated CRP Patient does not meet sepsis criteria: Tachycardia secondary to carvedilol noncompliance, patient with no tachypnea, fever, or leukocytosis; lactic acid pending Patient received IVF and started on broad-spectrum antibiotics in the ED Will treat with vancomycin, Zosyn, started 03/10/2023 Will get MRI of foot General surgery consult Consider ID consult depending on MRI results ESRD on HD Last dialyzed this past Electrolytes currently WNL Nephrology consult Follow BMP HTN Pt with hx of hypertensive urgency/crisis/accelerated hypertension secondary to medication noncompliance Continue home carvedilol, losartan Patient has been noted to respond well to hydralazine in the past, will include hydralazine 5mg p.r.n. for SBP >180 Monitor BP closely Nausea/vomiting Continue Reglan [id number] diabetes type 2 Patient noncompliant with medications [address] on sliding scale insulin Diabetic diet Full Code Attending:?Dr. Noonan DVT Prophylaxis: Heparin Pt will require a hospitalization of at least two nights for treatment of?left foot nonhealing diabetic ulcer concerning for osteomyelitis. Patient will require treatment with IV antibiotics, additional imaging, and specialist consultation possible surgical intervention. Quality Stroke Does the patient have a stroke diagnosis?: No VTE Prior VTE?: No VTE Risk Level:: Medical - moderate - high VTE Device Contraindication: Treatment Not Indicated VTE Drug Contraindication: N/A - Med Ordered
[2023-03-10] MEDS: Piperacillin Sodium/Tazobactam 2.25 GM in 0.9 % Sodium Chloride 50 ML IV (21:34)
[2023-03-10] MEDS: Metoclopramide HCl 10 MG/2 ML VIAL 5 MG IVPUSH (22:03)
[2023-03-10] MEDS: HYDROmorphone HCl 0.5 MG/0.5 ML SYRINGE IVPUSH (22:04)
--- NOTE | 2023-03-10 23:00 | PC.NURSE ---
assumed care of pt at 1900. PT worklist, labs, assessments not complete at the time of receiving assignment. Obtained blood cultures and sent down to lab. PT intermittently vomiting and reporting 10/10 pain. Contacted hospitalist to request pain medication for 7-10 pain scale. New orders received and medicated pt as per MAR- upon taking assignment this rn noted Vanocymic order placed although there was a listed allergy. Discussed concern with ED provider, Anwer who placed the order and he felt that pt did not have a true reaction and would like the order given and to monitor for any symptoms. Reassessed pt at 10 minutes and 45 minutes. No hives or rashes visible or reported by pt. Plan of care on going
[2023-03-10 23:03] LABS: Glucose, Whole Blood 140 mg/dL (60-115)
--- NOTE | 2023-03-10 23:20 | ECG_ITS ---
Test Reason : CHEST PAIN Blood Pressure : / mmHG Vent. Rate : 126 BPM Atrial Rate : 126 BPM P-R Int : 136 ms QRS Dur : 132 ms QT Int : 324 ms P-R-T Axes : 045 -16 019 degrees QTc Int : 469 ms Sinus tachycardia Possible Left atrial enlargement Right bundle branch block Abnormal ECG When compared with ECG of 07-MAR-2023 13:57, Nonspecific T wave abnormality now evident in Inferior leads T wave inversion now evident in Anterior leads Referred By: Rosemary Rollins Electronically Signed By:HATTIE BAÑUELOS MD
[2023-03-10] MEDS: carvediloL 12.5 MG TABLET PO (23:40)
[2023-03-11] MEDS: Losartan Potassium 25 MG TABLET PO (00:32)
[2023-03-11] MEDS: 0.9 % Sodium Chloride Flush 3 ML SYRINGE IVFLUSH ×3 (00:33→17:45)
--- NOTE | 2023-03-11 00:50 | PC.NURSE ---
I assumed care of this patient at 23:00. Patient vomited around 22:20, patient became tachycardic HR 130's, BP 218/102, O2 Sat 98% on 6 LPM NC. Patient denies chest pain/headache/nausea/dizziness. Dr. Yusuf notified. EKG completed by echocardiography technologist and patient medicated per APR. Dr. Farfan and Dr. Noonan reviewed results of EKG. Patient resting in stretcher bed, not in acute distress, call moore within patient's reach.
[2023-03-11 00:57] VITALS: BP 173/92; PULSE 107; RESP 19; TEMP 36.8; O2SAT 98
[2023-03-11 03:09] VITALS: BP 181/89; PULSE 101; RESP 18; TEMP 36.7; O2SAT 94
[2023-03-11] MEDS: HYDROmorphone HCl 0.5 MG/0.5 ML SYRINGE IVPUSH ×3 (03:31→17:44)
--- NOTE | 2023-03-11 04:05 | PC.NURSE ---
Patient transferred to unit at 0255. Patient presented with 9/10 pain, vomiting, hypertensive and upset. Patient was upset her foot ulcer to plantar aspect was not dressed in the ED. Wound cleansed with normal saline and wrapped with dry sterile dressing. Medicated with Dilaudid IV, with good effect and patient appears to be resting comfortably with eyes closed.
[2023-03-11 04:40] VITALS: BP 134/83; PULSE 94
[2023-03-11] MEDS: Piperacillin Sodium/Tazobactam 2.25 GM in 0.9 % Sodium Chloride 50 ML IV ×3 (04:42→19:49)
[2023-03-11 06:35] LABS: Anion Gap 14 (12-20); Blood Urea Nitrogen 38 mg/dL (9-16); Calcium 8.1 mg/dL (8.4-10.2); Carbon Dioxide 21 mmol/L (22-29); Chloride 104 mmol/L (96-108); Creatinine Clr Calc Pharmacy 18.3; Estimated Glomerular Filt Rate 11; Glucose Random 109 mg/dL (60-115); Potassium 4.3 mmol/L (3.3-5.1); Sodium 135 mmol/L (135-145)
[2023-03-11 07:41] VITALS: BP 161/92; PULSE 88; RESP 18; TEMP 36; O2SAT 99
[2023-03-11 07:48] LABS: Glucose, Whole Blood 110 mg/dL (60-115)
--- NOTE | 2023-03-11 08:32 | PM.EVENT ---
Event Note Date of Service: 03/11/23 Event Note: Chart reviewed Pt on HD and Last HD on Will do HD MWF in house Next HD uin AM ( Sunday ) I will arrange Time Spent With Patient Time: Total time managing care of this patient today ____ minutes.
--- NOTE | 2023-03-11 09:24 | PM.CNGS ---
History of Present Illness Consult details Consult date: 03/11/23 Requesting physician: Rosemary Rollins Narrative: 32-year-old female patient presenting with worsening left foot plantar wound. She has a past medical history of end-stage renal disease on dialysis (Sunday), diabetes, neuropathy, retinopathy, legally blind, hypertension, with numerous previous admissions for the left foot wound. She has a prior history of a right transmetatarsal amputation on 01/02/2023 (Dr. Arias). She also underwent several amputations of the right foot as well. This wound is been present for at least 1.5 years and she [facility]. She was also evaluated for arterial disease and found to have distal posterior tibial artery occlusion. Workup in the emergency department revealed a normal WBC of 5.2. CT of the left foot revealed midfoot osseous erosion similar to 06/09/2022 but shows fluid in the bone surface raising the possibility of acute osteomyelitis. Patient is admitted to the hospitalist service for IV antibiotics for the osteomyelitis. This morning the patient does report pain on the plantar surface left foot. Review of Systems Review of Systems: Yes Unobtainable due to mental condition PMFSH Past Medical History Medical History HFrEF (heart failure with reduced ejection fraction) ESRD on dialysis Migraine Diabetic foot ulcer associated with type 2 diabetes mellitus Chronic pain Gastroparesis Non-compliance with renal dialysis Hypertension Hypertensive emergency Diabetes ESRD needing dialysis Cardiomyopathy Metabolic acidosis delivery delivered Anemia in chronic kidney disease (CKD) CKD (chronic kidney disease) Headache, migraine Abnormal finding on echocardiogram Elevated troponin Chest pain Acute worsening of stage 3 chronic kidney disease Generalized edema Sepsis Cellulitis Pleural effusion CHF (congestive heart failure) (~06/07/22) Tachycardia Atypical chest pain Bone infection PAD (peripheral artery disease) Severe anemia Cellulitis and abscess of foot DM foot ulcer Osteomyelitis test positive test positive Asthma Depression with anxiety Diabetic retinopathy Type 2 diabetes mellitus with hyperglycemia, with long-term current use of insulin Blind right eye Diabetes Back pain Family History Family History Mother Coronary artery disease Myocardial infarction Stroke Diabetes mellitus Father Myocardial infarction Surgical History Surgical History 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 Social History Social History Household Members: Unknown / Unable to assess Household Members Other:: Sister, [id number], nephew Housing: Unknown / Unable to assess Do you presently have visiting nurse or other home services: No (unknown) Alcohol intake: never Comment: refuses camera Patient Tobacco Use Status: Never used Tobacco Smoked in Last 30 Days: No e-Cigarette/Vaping Use: Never Used Second Hand Smoke Exposure: No Use of substances other than those prescribed or required for medical reasons: No Advance Directives: Yes Advance Directives on File: Yes Advance Directives Date on File: 03/08/20 service: No Current occupational status: unemployed and disabled Gender identity: Female Meds Allergies Allergy/AdvReac Type Severity Reaction Status Date / Time morphine [MORPHINE] Allergy Intermediate Itching Verified 03/07/23 13:18 azithromycin [From Zithromax] Allergy Hives Verified 03/07/23 13:18 gabapentin Allergy Facial Verified 03/07/23 13:18 Swelling tramadol Allergy Facial Verified 03/07/23 13:18 Swelling Active Medications: Current Medications Acetaminophen (Acetaminophen 325 Mg Tablet) 650 mg PO Q6H PRN PRN Reason: Pain, Mild (Pain Scale 1-3) Benzonatate (Benzonatate 100 Mg Capsule) 100 mg PO TID PRN PRN Reason: Cough Dextrose (Dextrose 50 % 25 Gm/50 Ml Syringe) 25 gm IVPUSH Q15M PRN; Protocol PRN Reason: per Hypoglycemia Standing Ord. Diphenhydramine HCl (Diphenhydramine Hcl 25 Mg Capsule) 25 mg PO Q4H PRN PRN Reason: Rash/Ithicng Docusate Sodium (Docusate Sodium 100 Mg Capsule) 100 mg PO DAILY PRN PRN Reason: Constipation Glucose (Glucose Gel 15 Gm Gel..Gram.) 15 gm PO Q15M PRN; Protocol PRN Reason: per Hypoglycemia Standing Ord. Heparin Sodium (Porcine) (Heparin Sodium,Porcine 5,000 Unit/Ml Vial) 5,000 unit SUBCUT Q8H [facility] Last Admin: 03/11/23 04:45 Dose: Not Given Hydralazine HCl (Hydralazine Hcl 20 Mg/Ml Vial) 5 mg IVPUSH Q4H PRN; Protocol PRN Reason: SBP > 180 Hydromorphone HCl (Hydromorphone Hcl 0.5 Mg/0.5 Ml Syringe) 0.5 mg IVPUSH Q6H PRN; Protocol PRN Reason: Pain, Severe (Pain Scale 7-10) Last Admin: 03/11/23 09:13 Dose: 0.5 mg Hydroxyzine HCl (Hydroxyzine Hcl 10 Mg Tablet) 10 mg PO QID [facility] Piperacillin Sod/Tazobactam (Sod 2.25 gm/ Sodium Chloride) 50 mls @ 100 mls/hr IV Q8H [facility] Last Infusion: 03/11/23 05:27 Dose: Infused Insulin Human Lispro (Insulin Lispro 100 Unit/Ml 3 Ml Vial) 0 unit SUBCUT QIDACHS [facility]; Protocol Last Admin: 03/11/23 07:53 Dose: Not Given Melatonin (Melatonin 3 Mg Tablet) 6 mg PO BEDTIME PRN PRN Reason: Insomnia Metoclopramide HCl (Metoclopramide Hcl 10 Mg/2 Ml Vial) 5 mg IVPUSH Q6H PRN PRN Reason: Nausea and Vomiting Last Admin: 03/10/23 22:03 Dose: 5 mg Ondansetron HCl (Ondansetron Hcl 4 Mg/2 Ml Vial) 4 mg IVPUSH Q8H PRN PRN Reason: Nausea and Vomiting Pharmacy Consult (Consult Rx Vancomycin Dosing) 1 each MISCELLANE DAILY PRN PRN Reason: Consult order Sodium Chloride (0.9 % Sodium Chloride Flush 3 Ml Syringe) 3 ml IVFLUSH [facility] Last Admin: 03/11/23 09:15 Dose: 3 ml Home Medications Medication Instructions Recorded Confirmed Last Taken Type docusate sodium 100 mg capsule 100 mg PO DAILY PRN constipation 01/29/23 03/11/23 Unknown History glipizide 2.5 mg tablet, extended 2.5 mg PO DAILY 01/29/23 03/11/23 1 Day Ago History release 24 hr ~03/10/23 torsemide 20 mg tablet 40 mg PO BID 01/29/23 03/11/23 1 Day Ago History ~03/10/23 carvedilol 12.5 mg tablet 12.5 mg PO BID 03/11/23 03/11/23 1 Day Ago History ~03/10/23 hydralazine 25 mg tablet 75 mg PO TID 03/11/23 03/11/23 1 Day Ago History ~03/10/23 isosorbide mononitrate 30 mg 30 mg PO DAILY 03/11/23 03/11/23 1 Day Ago History tablet,extended release 24 hr ~03/10/23 lidocaine 5 % topical patch 1 patch topical DAILY 03/11/23 03/11/23 1 Day Ago History ~03/10/23 nifedipine 60 mg tablet,extended 60 mg PO DAILY 03/11/23 03/11/23 1 Day Ago History release 24 hr ~03/10/23 Physical Exam Vital Signs: Vital Signs: Last Vital Signs Temp 96.8 F 03/11/23 07:41 Pulse 88 03/11/23 07:41 Resp 18 03/11/23 07:41 BP 161/92 H 03/11/23 07:41 Pulse Ox 99 03/11/23 07:41 O2 Del Method Nasal Cannula 03/11/23 07:41 O2 Flow Rate 2 03/11/23 07:41 BMI result Body Mass Index 28.2 Const: Other: No acute distress although patient moaning occasionally Eyes: Other: Legally blind Resp: Other: Normal respiratory effort without respiratory distress, breathing comfortably on room air. Skin: Other: Warm, dry, no rash Extrem: Other: Punched-out ulcer in the mid left plantar surface measuring approximately 3 cm in diameter. A hard chronic callus noted surrounding the ulceration. Some of the ulceration was excised (approximately 2 x 2 cm) using a scissors and forceps. Granulation tissue noted at the base of wound. No exposed bone appreciated. Ulcer appears to extend into the deep dermis. There was purulence discharge noted at the base of the wound but when this was cleansed granulation tissue was noted. Silver alginate is applied followed by dry sterile dressings. Results Labs 03/10/23 17:34 03/11/23 05:48 Labs: Abnormal lab results 03/10/23 03/10/23 03/11/23 Range/Units 17:34 22:56 05:48 RBC 3.01 L (4.20-5.50) X10*6/uL Hgb 9.2 L (12.0-16.0) g/dl Hct 29.6 L (37.0-47.0) % MCV 98.3 H (80.0-98.0) fL RDW 17.7 H (11.0-16.0) % Neut % (Auto) 79.9 H (45-73) % Lymph % (Auto) 8.3 L (20-40) % Lymph # (Auto) 0.4 L (1.2-4.9) X10*3/uL ESR 59 H (0-20) MM/HR Carbon Dioxide 21 L 21 L (22-29) mmol/L BUN 36 H 38 H (9-16) mg/dL Creatinine 4.30 H* 4.60 H* (0.5-1.4) mg/dL POC Glucose 140 H (60-115) mg/dL Random Glucose 202 H (60-115) mg/dL Calcium 8.3 L 8.1 L (8.4-10.2) mg/dL Total Bilirubin 1.1 H (0.0-1.0) mg/dL C-Reactive Protein 0.71 H (< or = 0.50) mg/dL Albumin 3.2 L (3.5-5.0) g/dL Short CBC 03/10/23 Range/Units 17:34 WBC 5.2 (4.8-10.8) X10*3/uL Hgb 9.2 L (12.0-16.0) g/dl Hct 29.6 L (37.0-47.0) % Plt Count 163 (160-400) X10*3/uL BMP 03/10/23 03/11/23 17:34 05:48 Sodium 135 135 Potassium 4.2 4.3 Chloride 105 104 Carbon Dioxide 21 L 21 L BUN 36 H 38 H Creatinine 4.30 H* 4.60 H* Calcium 8.3 L 8.1 L Liver Function 03/10/23 Range/Units 17:34 Total Bilirubin 1.1 H (0.0-1.0) mg/dL AST 26 (5-31) U/L ALT 17 (0-31) U/L Alkaline Phosphatase 106 (39-117) U/L Albumin 3.2 L (3.5-5.0) g/dL All other labs normal. Assessment and Plan (1) Chronic ulcer of left foot due to diabetes mellitus: Status: Acute (2) Acute osteomyelitis of left foot: Status: Acute Plan Chronic callus of left plantar surface with evidence of osteomyelitis by CT. Recommend continuing silver alginate to the left foot wound followed by dry sterile dressings. Antibiotics as per hospitalist service. Long-term follow-up including wound care/vascular surgery may/will be challenging in this patient. Procedures Date of Service Date of Service: 03/11/23
--- NOTE | 2023-03-11 09:34 | PHA.MEDREC ---
Pharmacy Consult ? Medication Reconciliation Pharmacy has completed the medication reconciliation. Spoke to patient to confirm meds. Patient noncompliant with most meds. Pt states they stopped taking atorvastatin and glipizide because I just did . Pt confirms hydralazine, aspirin, isosorbide, lidocaine, nifedipine. Used pharmacy claim history and pt recent discharge on 02/01/24 to confirm meds as patient did not want to continue conversation.
[2023-03-11 11:11] LABS: Glucose, Whole Blood 124 mg/dL (60-115)
--- NOTE | 2023-03-11 14:16 | HO.PM.IMPN ---
Subjective Subjective Date of Service: 03/11/23 Interval History: Foot infection Review of Systems midfoot -cleansed and wrapped . no fever or chills Physical Exam Vital Signs: Vital Signs: Last Vital Signs Temp 96.8 F 03/11/23 07:41 Pulse 88 03/11/23 07:41 Resp 18 03/11/23 07:41 BP 161/92 H 03/11/23 07:41 Pulse Ox 99 03/11/23 07:41 O2 Del Method Nasal Cannula 03/11/23 07:41 O2 Flow Rate 2 03/11/23 07:41 BMI result Body Mass Index 28.2 Appearance: Alert.? Oriented X3. cvs: rrr, [id number] . res: clear to auscultation ,no rhonchii or wheezing abd: no rebound or guarding ,nt, bs present. ext pulses present , no cyanosis . right foot : punched out ulcer midleft area /ch callus -cleansed and wrapped (please see details in surgery note) neuro: axo3 , nonfocal. Objective Data Active Medications Acetaminophen (Acetaminophen 325 Mg Tablet) 650 mg PO Q6H PRN PRN Reason: Pain, Mild (Pain Scale 1-3) Benzonatate (Benzonatate 100 Mg Capsule) 100 mg PO TID PRN PRN Reason: Cough Dextrose (Dextrose 50 % 25 Gm/50 Ml Syringe) 25 gm IVPUSH Q15M PRN; Protocol PRN Reason: per Hypoglycemia Standing Ord. Diphenhydramine HCl (Diphenhydramine Hcl 25 Mg Capsule) 25 mg PO Q4H PRN PRN Reason: Rash/Ithicng Docusate Sodium (Docusate Sodium 100 Mg Capsule) 100 mg PO DAILY PRN PRN Reason: Constipation Glucose (Glucose Gel 15 Gm Gel..Gram.) 15 gm PO Q15M PRN; Protocol PRN Reason: per Hypoglycemia Standing Ord. Heparin Sodium (Porcine) (Heparin Sodium,Porcine 5,000 Unit/Ml Vial) 5,000 unit SUBCUT Q8H [facility] Last Admin: 03/11/23 04:45 Dose: Not Given Documented By: PATRICIO Non-Admin Reason: Patient Refused Hydralazine HCl (Hydralazine Hcl 20 Mg/Ml Vial) 5 mg IVPUSH Q4H PRN; Protocol PRN Reason: SBP > 180 Hydromorphone HCl (Hydromorphone Hcl 0.5 Mg/0.5 Ml Syringe) 0.5 mg IVPUSH Q6H PRN; Protocol PRN Reason: Pain, Severe (Pain Scale 7-10) Last Admin: 03/11/23 09:13 Dose: 0.5 mg Documented By: BRUCE Hydroxyzine HCl (Hydroxyzine Hcl 10 Mg Tablet) 10 mg PO QID [facility] Last Admin: 03/11/23 12:52 Dose: Not Given Documented By: BRUCE Non-Admin Reason: Patient Refused Piperacillin Sod/Tazobactam (Sod 2.25 gm/ Sodium Chloride) 50 mls @ 100 mls/hr IV Q8H [facility] Last Infusion: 03/11/23 12:53 Dose: Infused Documented By: BRUCE Insulin Human Lispro (Insulin Lispro 100 Unit/Ml 3 Ml Vial) 0 unit SUBCUT QIDACHS [facility]; Protocol Last Admin: 03/11/23 11:33 Dose: Not Given Documented By: BRUCE Non-Admin Reason: No Insulin Coverage Melatonin (Melatonin 3 Mg Tablet) 6 mg PO BEDTIME PRN PRN Reason: Insomnia Metoclopramide HCl (Metoclopramide Hcl 10 Mg/2 Ml Vial) 5 mg IVPUSH Q6H PRN PRN Reason: Nausea and Vomiting Last Admin: 03/10/23 22:03 Dose: 5 mg Documented By: CARIDAD Ondansetron HCl (Ondansetron Hcl 4 Mg/2 Ml Vial) 4 mg IVPUSH Q8H PRN PRN Reason: Nausea and Vomiting Pharmacy Consult (Consult Rx Vancomycin Dosing) 1 each MISCELLANE DAILY PRN PRN Reason: Consult order Sodium Chloride (0.9 % Sodium Chloride Flush 3 Ml Syringe) 3 ml IVFLUSH QSHIFT [facility] Last Admin: 03/11/23 09:15 Dose: 3 ml Documented By: BRUCE Labs 03/10/23 17:34 03/11/23 05:48 Labs: Laboratory Results - last 24 hr 03/10/23 03/10/23 03/10/23 17:34 21:32 22:56 MCV 98.3 H MCH 30.6 MCHC 31.1 RDW 17.7 H Plt Count 163 MPV 11.9 Immature Gran % (Auto) 0.2 Neut % (Auto) 79.9 H Lymph % (Auto) 8.3 L [place] % (Auto) 9.1 Eos % (Auto) 2.1 Baso % (Auto) 0.4 Lymph # (Auto) 0.4 L [place] # (Auto) 0.5 Eos # (Auto) 0.1 Baso # (Auto) 0.0 Abs Immat Gran (auto) 0.01 Absolute Neuts (auto) 4.2 Absolute Nucleated RBC 0.000 Nucleated RBC % (auto) 0.0 ESR 59 H Hold Purple Top Anion Gap 13 Estim Creat Clear Calc 19.6 Estimated GFR 12 POC Glucose 140 H Random Glucose 202 H Lactic Acid Cancelled Calcium 8.3 L Total Bilirubin 1.1 H AST 26 ALT 17 Alkaline Phosphatase 106 C-Reactive Protein 0.71 H Total Protein 7.2 Albumin 3.2 L 03/11/23 03/11/23 03/11/23 05:48 07:44 11:04 MCV MCH MCHC RDW Plt Count MPV Immature Gran % (Auto) Neut % (Auto) Lymph % (Auto) [place] % (Auto) Eos % (Auto) Baso % (Auto) Lymph # (Auto) [place] # (Auto) Eos # (Auto) Baso # (Auto) Abs Immat Gran (auto) Absolute Neuts (auto) Absolute Nucleated RBC Nucleated RBC % (auto) ESR Hold Purple Top SEE NOTE Anion Gap 14 Estim Creat Clear Calc 18.3 Estimated GFR 11 POC Glucose 110 124 H Random Glucose 109 Lactic Acid Calcium 8.1 L Total Bilirubin AST ALT Alkaline Phosphatase C-Reactive Protein Total Protein Albumin Assessment and Plan (1) End-stage renal disease (ESRD): Status: Acute Plan Day2: 32-year-old female with a PMH significant for?ESRD on dialysis Sun/Sun, diabetes with neuropathy and retinopathy, legally blind, difficult to control HTN, noncompliant with meds or dialysis, and with frequent hospitalization related to missed dialysis, accelerate HTN, nausea/vomiting, and pain who presents to the ED for evaluation of worsening left foot wound. Pt will be admitted to the hospital for treatment further evaluation of chronic nonhealing diabetic foot ulcer concerning for osteomyelitis. Chronic diabetic left foot ulcer Pt with increased pain, increased size of wound, and with purulent, foul-smelling discharge CT of foot with evidence concerning for acute osteomyelitis Elevated ESR, mildly elevated CRp.blood cultures pending continue vancomycin, Zosyn, started 03/10/2023 and MRI of foot. surgery following Id adam an ESRD on HD Last dialyzed this past Electrolytes currently WNL npehrology folowing HTN uncontrolled secondary to medication noncompliance Continue home carvedilol, losartan Patient has been noted to respond well to hydralazine in the past, will include hydralazine 5mg p.r.n. for SBP >180 Monitor BP closely Nausea/vomiting Continue Reglan [id number] diabetes type 2 Patient noncompliant with medications Place on sliding scale insulin Diabetic diet DVT Prophylaxis: Heparin ongoing hospitalisation need hospitalization : for treatment of?left foot nonhealing diabetic ulcer concerning for osteomyelitis- continue treatment with IV antibiotics, additional imaging, and specialist consultation possible surgical intervention. Quality Stroke Does the patient have a stroke diagnosis?: No VTE Prior VTE?: No VTE Risk Level:: Medical - moderate - high VTE Device Contraindication: Treatment Not Indicated VTE Drug Contraindication: N/A - Med Ordered
[2023-03-11 15:26] VITALS: BP 133/80; PULSE 85; RESP 16; TEMP 36.3; O2SAT 100
[2023-03-11 16:22] LABS: Glucose, Whole Blood 149 mg/dL (60-115)
--- NOTE | 2023-03-11 16:24 | MHC.CM.PN ---
PT SLEEPING ON APPROACH AND DID NOT WAKE TO NAME LIVESTOCK BREEDER COMPLETED USING EMR PT LIVES WITH HER SISTER WHO IS HER SIGN LANGUAGE INSTRUCTOR PT GOES TO [facility] 3X/WEEK FOR HD ARMANI CHATMAN IS PTS PCP HCP ON FILE IMM LEFT BEDSIDE CM WILL RETURN TO EXPLAIN PT IS LEGALLY BLIND DCP: HOME RESUME SIGN LANGUAGE INSTRUCTOR SISTER TO TRANSPORT
[2023-03-11 19:43] VITALS: BP 136/69; PULSE 83; RESP 17; TEMP 36.8; O2SAT 98
[2023-03-11 20:09] LABS: Glucose, Whole Blood 122 mg/dL (60-115)
[2023-03-12 00:07] VITALS: BP 179/108; PULSE 81; RESP 18; TEMP 35.9; O2SAT 99
[2023-03-12] MEDS: HYDROmorphone HCl 0.5 MG/0.5 ML SYRINGE IVPUSH ×4 (00:12→18:25)
[2023-03-12] MEDS: 0.9 % Sodium Chloride Flush 3 ML SYRINGE IVFLUSH ×3 (00:16→20:54)
[2023-03-12 03:56] VITALS: BP 168/65; PULSE 88; RESP 18; TEMP 36; O2SAT 99
[2023-03-12 05:34] LABS: Anion Gap 17 (12-20); Blood Urea Nitrogen 43 mg/dL (9-16); Calcium 8.7 mg/dL (8.4-10.2); Carbon Dioxide 20 mmol/L (22-29); Chloride 101 mmol/L (96-108); Creatinine Clr Calc Pharmacy 18.1; Estimated Glomerular Filt Rate 11; Glucose Random 73 mg/dL (60-115); Potassium 4.5 mmol/L (3.3-5.1); Sodium 133 mmol/L (135-145)
[2023-03-12] MEDS: Piperacillin Sodium/Tazobactam 2.25 GM in 0.9 % Sodium Chloride 50 ML IV ×3 (06:02→20:53)
[2023-03-12 07:36] LABS: Glucose, Whole Blood 82 mg/dL (60-115)
--- NOTE | 2023-03-12 10:38 | MHC.CM.PN ---
EMR reviewed. Per MD rounds patient is not medically cleared for dc. Awaiting MRI and ID eval. Per MD - LT IV abx vs. surgical intervention. CM will continue to follow for dc needs.
--- NOTE | 2023-03-12 10:51 | P.PNIM_ITS ---
Subjective Subjective Date of Service: 03/12/23 Interval History: Foot infection Review of Systems foot pain somewht improving denies new c/o Physical Exam 2 Vital Signs: Vital Signs: Last Vital Signs Temp 96.8 F 03/12/23 03:56 Pulse 88 03/12/23 03:56 Resp 18 03/12/23 03:56 BP 168/65 H 03/12/23 03:56 Pulse Ox 99 03/12/23 03:56 O2 Del Method Nasal Cannula 03/12/23 03:56 O2 Flow Rate 4 03/12/23 03:56 BMI result Body Mass Index 28.2 Appearance: Alert.? Oriented X3. cvs: rrr, [id number] . res: clear to auscultation ,no rhonchii or wheezing abd: no rebound or guarding ,nt, bs present. ext pulses present , no cyanosis . right foot : punched out ulcer midleft area /ch callus -cleansed and wrapped (please see details in surgery note) neuro: axo3 , nonfocal. Objective Data Active Medications Acetaminophen (Acetaminophen 325 Mg Tablet) 650 mg PO Q6H PRN PRN Reason: Pain, Mild (Pain Scale 1-3) Benzonatate (Benzonatate 100 Mg Capsule) 100 mg PO TID PRN PRN Reason: Cough Dextrose (Dextrose 50 % 25 Gm/50 Ml Syringe) 25 gm IVPUSH Q15M PRN; Protocol PRN Reason: per Hypoglycemia Standing Ord. Diphenhydramine HCl (Diphenhydramine Hcl 25 Mg Capsule) 25 mg PO Q4H PRN PRN Reason: Rash/Ithicng Docusate Sodium (Docusate Sodium 100 Mg Capsule) 100 mg PO DAILY PRN PRN Reason: Constipation Glucose (Glucose Gel 15 Gm Gel..Gram.) 15 gm PO Q15M PRN; Protocol PRN Reason: per Hypoglycemia Standing Ord. Heparin Sodium (Porcine) (Heparin Sodium,Porcine 5,000 Unit/Ml Vial) 5,000 unit SUBCUT Q8H [facility] Last Admin: 03/12/23 06:26 Dose: Not Given Documented By: PATRICIO Non-Admin Reason: Patient Refused Hydralazine HCl (Hydralazine Hcl 20 Mg/Ml Vial) 5 mg IVPUSH Q4H PRN; Protocol PRN Reason: SBP > 180 Hydromorphone HCl (Hydromorphone Hcl 0.5 Mg/0.5 Ml Syringe) 0.5 mg IVPUSH Q6H PRN; Protocol PRN Reason: Pain, Severe (Pain Scale 7-10) Last Admin: 03/12/23 06:10 Dose: 0.5 mg Documented By: PATRICIO Hydroxyzine HCl (Hydroxyzine Hcl 10 Mg Tablet) 10 mg PO QID [facility] Last Admin: 03/12/23 08:23 Dose: Not Given Documented By: LISA Non-Admin Reason: Patient Refused Piperacillin Sod/Tazobactam (Sod 2.25 gm/ Sodium Chloride) 50 mls @ 100 mls/hr IV Q8H [facility] Last Infusion: 03/12/23 06:49 Dose: Infused Documented By: PATRICIO Vancomycin HCl 500 mg/ Sodium (Chloride) 110 mls @ 110 mls/hr IV ONCE ONE Stop: 03/12/23 09:23 Insulin Human Lispro (Insulin Lispro 100 Unit/Ml 3 Ml Vial) 0 unit SUBCUT QIDACHS [facility]; Protocol Last Admin: 03/12/23 07:35 Dose: Not Given Documented By: LISA Non-Admin Reason: No Insulin Coverage Melatonin (Melatonin 3 Mg Tablet) 6 mg PO BEDTIME PRN PRN Reason: Insomnia Metoclopramide HCl (Metoclopramide Hcl 10 Mg/2 Ml Vial) 5 mg IVPUSH Q6H PRN PRN Reason: Nausea and Vomiting Last Admin: 03/10/23 22:03 Dose: 5 mg Documented By: CARIDAD Ondansetron HCl (Ondansetron Hcl 4 Mg/2 Ml Vial) 4 mg IVPUSH Q8H PRN PRN Reason: Nausea and Vomiting Pharmacy Consult (Consult Rx Vancomycin Dosing) 1 each MISCELLANE DAILY PRN PRN Reason: Consult order Sodium Chloride (0.9 % Sodium Chloride Flush 3 Ml Syringe) [facility] Last Admin: 03/12/23 08:29 Dose: 3 ml Documented By: LISA Labs 03/10/23 17:34 03/12/23 03:49 Labs: Laboratory Results - last 24 hr 03/11/23 03/11/23 03/11/23 11:04 16:11 19:47 Anion Gap Estim Creat Clear Calc Estimated GFR POC Glucose 124 H 149 H 122 H Random Glucose Calcium 03/12/23 03/12/23 03:49 07:31 Anion Gap 17 Estim Creat Clear Calc 18.1 Estimated GFR 11 POC Glucose 82 Random Glucose 73 Calcium 8.7 D Microbiology Microbiology Results: Microbiology 03/10/23 21:05 Blood Culture - Preliminary Blood - Venous No growth after 24 hours. 03/10/23 21:05 Blood Culture - Preliminary Blood - Venous No growth after 24 hours. Assessment and Plan (1) End-stage renal disease (ESRD): Status: Acute Plan Day3: 32-year-old female with a PMH significant for?ESRD on dialysis Sun/Sun, diabetes with neuropathy and retinopathy, legally blind, difficult to control HTN, noncompliant with meds or dialysis, and with frequent hospitalization related to missed dialysis, accelerate HTN, nausea/vomiting, and pain who presents to the ED for evaluation of worsening left foot wound. Pt will be admitted to the hospital for treatment further evaluation of chronic nonhealing diabetic foot ulcer concerning for osteomyelitis. Chronic diabetic left foot ulcer Pt with increased pain, increased size of wound, and with purulent, foul- smelling discharge CT of foot with evidence concerning for acute osteomyelitis Elevated ESR, mildly elevated CRp.blood cultures pending continue vancomycin, Zosyn, started 03/10/2023 and MRI of foot. surgery following Id eval pendin ESRD on HD Last dialyzed this past Electrolytes currently WNL npehrology folowing HTN uncontrolled secondary to medication noncompliance Continue home carvedilol, losartan Patient has been noted to respond well to hydralazine in the past, will include hydralazine 5mg p.r.n. for SBP >180 Monitor BP closely Nausea/vomiting Continue Reglan [id number] diabetes type 2 Patient noncompliant with medications Place on sliding scale insulin Diabetic diet DVT Prophylaxis: Heparin ongoing hospitalisation need hospitalization : for treatment of?left foot nonhealing diabetic ulcer concerning for osteomyelitis- continue treatment with IV antibiotics, additional imaging, and specialist consultation possible surgical intervention. Quality Stroke Does the patient have a stroke diagnosis?: No VTE Prior VTE?: No VTE Risk Level:: Medical - moderate - high VTE Device Contraindication: Treatment Not Indicated VTE Drug Contraindication: N/A - Med Ordered
--- NOTE | 2023-03-12 12:17 | P.PNNP_ITS ---
Subjective Subjective Date of Service: 03/12/23 Interval history: seen and examined c/o pain Physical Exam 2 Vital Signs: Vital Signs: Last Vital Signs Temp 96.8 F 03/12/23 03:56 Pulse 88 03/12/23 03:56 Resp 18 03/12/23 03:56 BP 168/65 H 03/12/23 03:56 Pulse Ox 99 03/12/23 03:56 O2 Del Method Nasal Cannula 03/12/23 03:56 O2 Flow Rate 4 03/12/23 03:56 BMI result Body Mass Index 28.2 Const: General: no acute distress HEENT: Head: Yes normocephalic and Yes atraumatic Neck: Neck: Yes supple Resp: Auscultation: diminished lung sounds Cardio: Heart sounds: S1 normal heart sound present and S2 normal heart sound present GI: Palpation (GI): Soft to palpation and nontender Extrem: General: Yes edema Objective Data Labs 03/10/23 17:34 03/12/23 03:49 Labs: Laboratory Results - last 24 hr 03/11/23 03/11/23 03/12/23 16:11 19:47 03:49 Sodium 133 L Potassium 4.5 Chloride 101 Carbon Dioxide 20 L Anion Gap 17 BUN 43 H Creatinine 4.65 H* Estim Creat Clear Calc 18.1 Estimated GFR 11 POC Glucose 149 H 122 H Random Glucose 73 Calcium 8.7 D 03/12/23 07:31 Sodium Potassium Chloride Carbon Dioxide Anion Gap BUN Creatinine Estim Creat Clear Calc Estimated GFR POC Glucose 82 Random Glucose Calcium Microbiology Microbiology Results: Microbiology 03/10/23 21:05 Blood - Venous Blood Culture - Preliminary No growth after 24 hours. 03/10/23 21:05 Blood - Venous Blood Culture - Preliminary No growth after 24 hours. Procedures Date of Service Date of Service: 03/12/23 Assessment & Plan Assessment and plan (1) End-stage renal disease (ESRD): Status: Acute (2) Diabetic foot: Status: Acute (3) Anemia: Status: Inactive Plan known ESRD on HD followed by Dr Siddiqi nephrogenic anemia admitted with diabetic foot concern for osteomyelitis REC HD today UF as tolerated renal diet phosphate binders VIPUL Abx follow culture Time Spent With Patient Time: Total time managing care of this patient today ____ minutes. Progress Note: Quality Stroke Does the patient have a stroke diagnosis?: No
[2023-03-12] MEDS: ondansetron HCL 4 MG/2 ML VIAL IVPUSH (12:48)
[2023-03-12 18:30] LABS: Vancomycin Random 16.4 mcg/mL (15-20)
[2023-03-12 18:34] LABS: Glucose, Whole Blood 71 mg/dL (60-115)
[2023-03-12 18:36] VITALS: BP 186/96; PULSE 83; RESP 16; TEMP 36.1; O2SAT 98
--- NOTE | 2023-03-12 18:59 | HE.PHANOTE ---
VANCO DOSE ADJUSTMENT BASED ON SCR AND TROUGH OF 16.4 DOSE HELD UNTIL NEXT DIALYSIS DAY. NEXT TROUGH 03/14 @ 1800
[2023-03-12] MEDS: gadobutroL 7.5 ML VIAL IVPUSH (20:40)
[2023-03-12 20:54] VITALS: BP 176/92; PULSE 83; RESP 18; TEMP 36; O2SAT 96
[2023-03-13] MEDS: HYDROmorphone HCl 0.5 MG/0.5 ML SYRINGE IVPUSH ×4 (00:20→18:13)
[2023-03-13 03:11] VITALS: BP 161/75; PULSE 80; RESP 16; TEMP 36.1; O2SAT 97
[2023-03-13] MEDS: Piperacillin Sodium/Tazobactam 2.25 GM in 0.9 % Sodium Chloride 50 ML IV ×3 (03:45→20:56)
--- NOTE | 2023-03-13 06:08 | PC.NURSE ---
Pt refused 2100 poc last night also refused AM labs this morning.
[2023-03-13 07:24] VITALS: BP 173/99; PULSE 79; RESP 17; TEMP 36.2; O2SAT 96
[2023-03-13 07:25] LABS: Glucose, Whole Blood 83 mg/dL (60-115)
[2023-03-13] MEDS: carvediloL 12.5 MG TABLET PO (09:10)
[2023-03-13] MEDS: 0.9 % Sodium Chloride Flush 3 ML SYRINGE IVFLUSH (09:10)
[2023-03-13] MEDS: hydrALAZINE HCl 25 MG TABLET 75 MG PO (09:10)
--- NOTE | 2023-03-13 11:03 | P.PNNP_ITS ---
Subjective Subjective Date of Service: 03/13/23 Interval history: seen and examined no complaints Physical Exam 2 Vital Signs: Vital Signs: Last Vital Signs Temp 97.1 F 03/13/23 07:24 Pulse 79 03/13/23 07:24 Resp 17 03/13/23 07:24 BP 173/99 H 03/13/23 07:24 Pulse Ox 96 03/13/23 07:24 O2 Del Method Room Air 03/13/23 07:24 O2 Flow Rate 4 03/12/23 03:56 BMI result Body Mass Index 28.2 Const: General: no acute distress HEENT: Head: Yes normocephalic and Yes atraumatic Neck: Neck: Yes supple Resp: Auscultation: diminished lung sounds Cardio: Heart sounds: S1 normal heart sound present and S2 normal heart sound present GI: Palpation (GI): Soft to palpation and nontender Extrem: General: Yes edema Objective Data Labs 03/10/23 17:34 03/12/23 03:49 Labs: Laboratory Results - last 24 hr 03/12/23 03/12/23 03/13/23 18:10 18:27 07:21 POC Glucose 71 83 Random Vancomycin 16.4 Microbiology Microbiology Results: Microbiology 03/10/23 21:05 Blood - Venous Blood Culture - Preliminary No growth after 48 hours. 03/10/23 21:05 Blood - Venous Blood Culture - Preliminary No growth after 48 hours. Procedures Date of Service Date of Service: 03/13/23 Assessment & Plan Assessment and plan (1) End-stage renal disease (ESRD): Status: Acute (2) Diabetic foot: Status: Acute (3) Anemia: Status: Inactive Plan known ESRD on HD followed by Dr Siddiqi nephrogenic anemia admitted with diabetic foot initial concern for osteomyelitis BC negative so far REC increase hydralazine 100 mg tid if BP remains elevated HD tomorow renal diet phosphate binders VIPUL Abx follow culture Time Spent With Patient Time: Total time managing care of this patient today ____ minutes. Progress Note: Quality Stroke Does the patient have a stroke diagnosis?: No
--- NOTE | 2023-03-13 12:01 | HO.PM.IMPN ---
Subjective Subjective Date of Service: 03/13/23 Physical Exam Vital Signs: Vital Signs: Last Vital Signs Temp 97.1 F 03/13/23 07:24 Pulse 79 03/13/23 07:24 Resp 17 03/13/23 07:24 BP 173/99 H 03/13/23 07:24 Pulse Ox 96 03/13/23 07:24 O2 Del Method Room Air 03/13/23 07:24 O2 Flow Rate 4 03/12/23 03:56 BMI result Body Mass Index 28.2 Objective Data Active Medications Acetaminophen (Acetaminophen 325 Mg Tablet) 650 mg PO Q6H PRN PRN Reason: Pain, Mild (Pain Scale 1-3) Aspirin (Aspirin Enteric Coated 81 Mg Tablet.Dr) 81 mg PO DAILY [facility] Last Admin: 03/13/23 08:28 Dose: Not Given Documented By: LISA Non-Admin Reason: Patient Refused Atorvastatin Calcium (Atorvastatin Calcium 40 Mg Tablet) 40 mg PO BEDTIME [facility] Benzonatate (Benzonatate 100 Mg Capsule) 100 mg PO TID PRN PRN Reason: Cough Carvedilol (Carvedilol 12.5 Mg Tablet) 12.5 mg PO BID [facility]; Protocol Last Admin: 03/13/23 09:10 Dose: 12.5 mg Documented By: LISA Dextrose (Dextrose 50 % 25 Gm/50 Ml Syringe) 25 gm IVPUSH Q15M PRN; Protocol PRN Reason: per Hypoglycemia Standing Ord. Diphenhydramine HCl (Diphenhydramine Hcl 25 Mg Capsule) 25 mg PO Q4H PRN PRN Reason: Rash/Ithicng Docusate Sodium (Docusate Sodium 100 Mg Capsule) 100 mg PO DAILY PRN PRN Reason: Constipation Docusate Sodium (Docusate Sodium 100 Mg Capsule) 100 mg PO DAILY PRN PRN Reason: constipation Glucose (Glucose Gel 15 Gm Gel..Gram.) 15 gm PO Q15M PRN; Protocol PRN Reason: per Hypoglycemia Standing Ord. Heparin Sodium (Porcine) (Heparin Sodium,Porcine 5,000 Unit/Ml Vial) 5,000 unit SUBCUT Q8H [facility] Last Admin: 03/13/23 05:22 Dose: Not Given Documented By: KERI Non-Admin Reason: Patient Refused Hydralazine HCl (Hydralazine Hcl 20 Mg/Ml Vial) 5 mg IVPUSH Q4H PRN; Protocol PRN Reason: SBP > 180 Hydralazine HCl (Hydralazine Hcl 25 Mg Tablet) 75 mg PO TID [facility]; Protocol Last Admin: 03/13/23 09:10 Dose: 75 mg Documented By: LISA Hydromorphone HCl (Hydromorphone Hcl 0.5 Mg/0.5 Ml Syringe) 0.5 mg IVPUSH Q6H PRN; Protocol PRN Reason: Pain, Severe (Pain Scale 7-10) Last Admin: 03/13/23 06:14 Dose: 0.5 mg Documented By: KERI Hydroxyzine HCl (Hydroxyzine Hcl 10 Mg Tablet) 10 mg PO QID [facility] Last Admin: 03/13/23 08:28 Dose: Not Given Documented By: LISA Non-Admin Reason: Patient Refused Piperacillin Sod/Tazobactam (Sod 2.25 gm/ Sodium Chloride) 50 mls @ 100 mls/hr IV Q8H [facility] Last Infusion: 03/13/23 04:17 Dose: Infused Documented By: KERI Vancomycin HCl 500 mg/ Sodium (Chloride) 110 mls @ 110 mls/hr IV ONCE ONE Stop: 03/12/23 09:23 Insulin Human Lispro (Insulin Lispro 100 Unit/Ml 3 Ml Vial) 0 unit SUBCUT QIDACHS [facility]; Protocol Last Admin: 03/13/23 11:48 Dose: Not Given Documented By: LISA Non-Admin Reason: Patient Refused Isosorbide Mononitrate (Isosorbide Mononitrate 30 Mg Tab.Er.24h) 30 mg PO DAILY [facility]; Protocol Last Admin: 03/13/23 09:11 Dose: Not Given Documented By: LISA Non-Admin Reason: Patient Refused Losartan Potassium (Losartan Potassium 25 Mg Tablet) 25 mg PO DAILY [facility]; Protocol Last Admin: 03/13/23 09:11 Dose: Not Given Documented By: LISA Non-Admin Reason: Patient Refused Melatonin (Melatonin 3 Mg Tablet) 6 mg PO BEDTIME PRN PRN Reason: Insomnia Metoclopramide HCl (Metoclopramide Hcl 10 Mg/2 Ml Vial) 5 mg IVPUSH Q6H PRN PRN Reason: Nausea and Vomiting Last Admin: 03/10/23 22:03 Dose: 5 mg Documented By: HO.MONTEIR Metoclopramide HCl (Metoclopramide Hcl 5 Mg Tablet) 5 mg PO DAILY PRN PRN Reason: nausea and vomiting Nifedipine (Nifedipine Er 60 Mg Tab.Er.24) 60 mg PO DAILY [facility]; Protocol Last Admin: 03/13/23 09:11 Dose: Not Given Documented By: LISA Non-Admin Reason: Patient Refused Omeprazole (Omeprazole 20 Mg Capsule.Dr) 20 mg PO DAILY@0630 [facility] Ondansetron HCl (Ondansetron Hcl 4 Mg/2 Ml Vial) 4 mg IVPUSH Q8H PRN PRN Reason: Nausea and Vomiting Last Admin: 03/12/23 12:48 Dose: 4 mg Documented By: LISA Oxycodone HCl (Oxycodone Hcl Immed Release 5 Mg Tablet) 5 mg PO Q6H PRN PRN Reason: severe pain Pharmacy Consult (Consult Rx Vancomycin Dosing) 1 each MISCELLANE DAILY PRN PRN Reason: Consult order Sodium Chloride (0.9 % Sodium Chloride Flush 3 Ml Syringe) 3 ml IVFLUSH [facility] Last Admin: 03/13/23 09:10 Dose: 3 ml Documented By: LISA Torsemide (Torsemide 20 Mg Tablet) 40 mg PO BID [facility]; Protocol Last Admin: 03/13/23 09:11 Dose: Not Given Documented By: LISA Non-Admin Reason: Patient Refused Labs 03/10/23 17:34 03/12/23 03:49 Labs: Laboratory Results - last 24 hr 03/12/23 03/12/23 03/13/23 18:10 18:27 07:21 POC Glucose 71 83 Random Vancomycin 16.4 Microbiology Microbiology Results: Microbiology 03/10/23 21:05 Blood Culture - Preliminary Blood - Venous No growth after 48 hours. 03/10/23 21:05 Blood Culture - Preliminary Blood - Venous No growth after 48 hours. Assessment and Plan (1) Diabetic foot: Status: Acute Plan 32-year-old female with a PMH significant for?ESRD on dialysis Sun/Sun, diabetes with neuropathy and retinopathy, legally blind, difficult to control HTN, noncompliant with meds or dialysis, and with frequent hospitalization related to missed dialysis, accelerate HTN, nausea/vomiting, and pain who presents to the ED for evaluation of worsening left foot wound. Pt will be admitted to the hospital for treatment further evaluation of chronic nonhealing diabetic foot ulcer concerning for osteomyelitis. Chronic diabetic left foot ulcer Pt with increased pain, increased size of wound, and with purulent, foul-smelling discharge CT of foot with evidence concerning for acute osteomyelitis but MRI was negative Elevated ESR, mildly elevated CRP blood cultures neg continue vancomycin, Zosyn, started 03/10/2023 surgery following>nothing surgical at this point Id eval pending ESRD on HD Electrolytes currently WNL nephrology following HTN uncontrolled secondary to medication noncompliance Continue home carvedilol, losartan Patient has been noted to respond well to hydralazine in the past, will include hydralazine 5mg p.r.n. for SBP >180 Monitor BP closely Nausea/vomiting Continue Reglan [id number] diabetes type 2 Patient noncompliant with medications sliding scale insulin Diabetic diet DVT Prophylaxis: Heparin Attending Dr. Blanton ongoing hospitalisation need hospitalization : for treatment of?left foot nonhealing diabetic ulcer concerning for osteomyelitis- continue treatment with IV antibiotics, additional imaging, and specialist consultation possible surgical intervention. Quality Stroke Does the patient have a stroke diagnosis?: No VTE Prior VTE?: No VTE Risk Level:: Medical - moderate - high VTE Device Contraindication: Treatment Not Indicated VTE Drug Contraindication: N/A - Med Ordered
--- NOTE | 2023-03-13 13:02 | HO.WOUND ---
Addendum entered by Minda Ashley RN 03/14/23 09:13: Wound Conult: Follow up after discussion with Case Mgt 03/13/23 Patient set for d/c today to home with VNA services. She refused follow up care with Wound Care Clinic and Daily dressings are not an option given patient lack of resources and inability to preform herself. Currently recommendation is Durafiber AG Dressing followed by Gauze. Durafiber AG (Hydrofiber) can stay in a wound bed for 5-7 days. Current Inpatient recommendation is for daily dressing changes - once discharged outpatient dressing changes can be performed every other day. Recommendations: 1. Turn and Reposition every 2 hours and as needed for patient comfort. 2. Off Load all bony prominences with use of pillows and heel boots as needed. 3. Provide adequate and supplemental nutrition. 4. Maintain blood glucose levels per Providers orders. 5. Left Plantar foot - Off Load Pressure - Cleanse with NS, Pat dry. Apply Alginate AG to wound bed followed by dry gauze, Abd Pad, gauze wrap secure with tape. Change every other day may stay in place up to 5 days. Recommend follow up out patient Wound Clinic at [address] [place] [address] and to call for an appointment at time of discharge. [phone].? Original Note: Wound Consult: Initial 32yr old female admitted to [facility] on?03/10/23 - See progress notes and H&P for detailed history. Recent admission 01/21/23 - see chart review for history. Wound consult received for Left Plantar foot wound - POA. Left Plantar Foot Etiology: Diabetic Foot wound Measurements: 1.5cm x 1.2cm x 0.4cm Wound Bed: moist marbled wound bed with pink and pale pink tissue Drainage / Odor: scant yellow cruz drainage noted on Alginate when removed no odor noted Edges: ? callused improved periwound from last admission Pao wound: ? Firm Induration baseline with callus, No Fluctuance, No Erythema, No Warmth - no S/S of active infection Pain: Denies pain reports neuropathy Goals of Treatment: ? Alginate to allow for moist wound healing - Recommend patient to follow up out pt with Wound Clinic for continued care - debridement and to aid in obtaining off loading boot Suspect patient would benefit from Iodosorb Gel / Paste for Bio Film treatment as wound is chronic in nature - product not available inpatient will recommend Outpt Wound clinic Follow up. Last admission 01/30/23 Todays Admission 03/13/23 Overall improving Recommendations: 1. Turn and Reposition every 2 hours and as needed for patient comfort. 2. Off Load all bony prominences with use of pillows and heel boots as needed. 3. Provide adequate and supplemental nutrition. 4. Maintain blood glucose levels per Providers orders. 5. Left Plantar foot - Off Load Pressure - Cleanse with NS, Pat dry. Apply Alginate AG to wound bed followed by dry gauze, Abd Pad, gauze wrap secure with tape. Change Daily. Initialized on 01/30/23 15:38 - END OF NOTE
[2023-03-13 15:21] VITALS: BP 172/90; PULSE 77; RESP 16; TEMP 36.4; O2SAT 96
[2023-03-13 16:06] LABS: Glucose, Whole Blood 151 mg/dL (60-115)
[2023-03-13] MEDS: Metoclopramide HCl 10 MG/2 ML VIAL 5 MG IVPUSH (18:12)
[2023-03-13 20:00] VITALS: BP 184/93; PULSE 77; RESP 16; TEMP 36.4; O2SAT 97
[2023-03-14] MEDS: HYDROmorphone HCl 0.5 MG/0.5 ML SYRINGE IVPUSH ×3 (01:04→12:41)
[2023-03-14 04:00] VITALS: BP 158/89; PULSE 75; RESP 18; O2SAT 97
[2023-03-14] MEDS: Piperacillin Sodium/Tazobactam 2.25 GM in 0.9 % Sodium Chloride 50 ML IV ×2 (04:36→12:42)
[2023-03-14] MEDS: 0.9 % Sodium Chloride Flush 3 ML SYRINGE IVFLUSH (07:31)
--- NOTE | 2023-03-14 07:35 | PM.DS ---
DS: Providers Provider Date of Service: 03/14/23 Date of admission: 03/10/23 21:09 Primary care physician: Unknown Physician Consults: 03/10/23 21:26 Consult to Nephrology Routine Consulting Provider: Fernando Siddiqi Reason for consultation: ESRD on HD 03/10/23 23:32 Consult to General Surgery Routine Consulting Provider: [facility] [place] [facility] Reason for consultation: Worsening diabetic foot ulcer, ?osteomyelitis 03/11/23 15:43 Consult to Wound Care Routine Reason for consultation: worsening footinfection Has provider been notified: Yes DS: Diagnosis Discharge Diagnosis (1) Diabetic foot: Status: Acute DS: Summary Hospital Course Hospital Course: History and physical as per admitting provider. Pt is a 32-year-old female with a PMH significant for?ESRD on dialysis , diabetes with neuropathy and retinopathy, legally blind, difficult to control HTN, noncompliant with meds or dialysis, and with frequent hospitalization related to missed dialysis, accelerate HTN, nausea/vomiting, and pain who presents to the ED for evaluation of worsening left foot wound. Pt was most recently seen in the ED three days prior on 03/07/2023 for missed dialysis and possible exposure to RSV. At that time had arterial duplex of left lower extremity which found mild plaque with triphasic flow throughout and no convincing evidence of any hemodynamically significant lower extremity arterial disease, but did show distal posterior tibial artery occlusion. ED clinician reached out to Dr. Arias to discuss findings who suggested outpatient follow-up. Pt reports since then she has noticed wound on the bottom of her midfoot to have increased in size and started draining a foul-smelling, purulent discharge. Apparently has had this wound for 1 1/2 years, taken care of by her sister. She has not been to wound care clinic for treatment or management. Denies fever or chills, but had one episode of nausea and vomiting while in the ED. No chest pain/pressure, palpitations. Denies SOB. In the ED pt was afebrile but tachycardic up to 102, and hypertensive up to 183/108, satting at 96% on RA. Labs were significant for stable H&H of 9.2/29.6, BUN 36, creatinine 4.30, ESR 59, CRP 0.71. Lactic acid pending. CT?or left foot found midfoot osseous erosions similar to 06/09/2022, but showed extension of fluid into the bone surface that raises possibility for acute osteomyelitis. Pt was treated with IVF, Dilaudid, ondansetron, Zosyn and vancomycin. Pt will be admitted to the hospital for treatment further evaluation of chronic nonhealing diabetic foot ulcer concerning for osteomyelitis. 32-year-old blind woman with bilateral TMA treated for chronic diabetic foot ulcer initially thought to be osteomyelitis but MRI was negative. She was treated initially with IV vancomycin and Zosyn. Seen evaluated by General surgery with no surgical intervention needed. Seen by wound care nurse with recommendation for alginate Ag to wound bed with dry gauze, ABD pad and gauze wrap, changing daily. Patient is end-stage renal disease on dialysis and has a history of hypertension with hypertensive urgency, this may be secondary to the fact that she does not take all of her medications and at times declines blood pressure medications as well. She was encouraged take all medications as prescribed to help control her blood pressure better and this in turn can help her wounds heal faster as well. The wound care nurse did recommend outpatient treatment at the wound clinic. Continue 5 more days of doxycycline. End-stage renal disease on dialysis Sunday and Hypertension. Uncontrolled. Discussed importance of compliance with blood pressure medications. Continue carvedilol, losartan, isosorbide, nifedipine, torsemide. Hydralazine increased to 100 mg t.i.d. History of nausea and vomiting. Supportive care at home Diabetes mellitus type 2. Noncompliant with medications at home, treated with sliding scale during inpatient. Continue glipizide GERD. Continue PPI Time Attestation Discharge coordination time: Greater than 30 minutes Quality: Safe Use of Opioids Does Pt have an Active Cancer Diagnosis on the Problem List?: No Quality: Stroke Does the patient have a stroke diagnosis?: No Physical Exam Vital Signs: Vital Signs: Last Vital Signs Temp 97.5 F 03/13/23 20:00 Pulse 75 03/14/23 04:00 Resp 18 03/14/23 04:00 BP 158/89 H 03/14/23 04:00 Pulse Ox 97 03/14/23 04:00 O2 Del Method Room Air 03/14/23 04:00 O2 Flow Rate 4 03/12/23 03:56 BMI result Body Mass Index 28.2 Appearing in no acute distress head is normocephalic atraumatic eyes pupils are PERRLA sclera is anicteric mouth throat mucous membranes are intact and moist neck is supple no lymphadenopathy, no JVD noted lung sounds are clear to auscultation heart regular rate rhythm, clear S1, S2 positive bowel sounds, abdomen is soft, nontender neuro patient is alert x3, no focal deficits Left plantar foot, diabetic foot wound 1.5 cm x 1.2 cm x 0.4 cm, wound bed moist, marbled pink and pale tissue with scant yellow cruz drainage, callus improved to periwound, periwound with firm induration baseline with callus, no fluctuation, no erythema and no warmth, no active infection TMA to bilateral feet DS: Data Data Completed and Pending Completed studies during hospitalization [Text1]: Procedures Detachment at Right Foot, Partial 1st Ray, Open Approach (03/01/20) Detachment at Right Foot, Partial 2nd Ray, Open Approach (03/01/20) Detachment at Right Foot, Partial 3rd Ray, Open Approach (03/01/20) Detachment at Right Foot, Partial 4th Ray, Open Approach (03/01/20) Detachment at Right Foot, Partial 5th Ray, Open Approach (03/01/20) Drainage of Right Pleural Cavity, Percutaneous Approach (01/14/21) Excision of Left Foot Skin, External Approach (12/29/22) Excision of Stomach, Pylorus, Via Natural or Artificial Opening Endoscopic, Diagnostic (08/27/22) Fluoroscopy of Superior Vena Cava, Guidance (08/14/22) Insertion of Infusion Device into Right Atrium, Percutaneous Approach (08/14/22) Insertion of Infusion Device into Superior Vena Cava, Percutaneous Approach (01/14/21) Insertion of Tunneled Vascular Access Device into Chest Subcutaneous Tissue and Fascia, Percutaneous Approach (08/14/22) Performance of Urinary Filtration, Intermittent, Less than 6 Hours Per Day (01/21/23) Removal of Infusion Device from Great Vessel, External Approach (01/14/21) Transfusion of Nonautologous Red Blood Cells into Peripheral Vein, Percutaneous Approach (04/22/22) Labs on day of discharge: Laboratory Results - last 24 hr 03/13/23 16:02 POC Glucose 151 H Preliminary micro results at discharge 03/10/23 21:05 Blood Culture - Preliminary Blood - Venous No growth after 48 hours. 03/10/23 21:05 Blood Culture - Preliminary Blood - Venous No growth after 48 hours. Discharge Plan Discharge Anticipated Discharge Date/Time: 03/14/23 07:33 Patient Disposition: Home Health Service Discharge Diagnosis: Chronic diabetic left foot ulcer End-stage renal disease on dialysis Hypertension Discharge Medications: New doxycycline hyclate 100 mg tablet 100 mg PO BID Qty: 10 0RF Continued carvedilol 12.5 mg tablet 12.5 mg PO BID isosorbide mononitrate 30 mg tablet extended release 24 hr 30 mg PO DAILY hydralazine 25 mg tablet 75 mg PO TID nifedipine 60 mg tablet extended release 24hr 60 mg PO DAILY lidocaine 5 % adhesive patch,medicated 1 patch topical DAILY oxycodone 5 mg tablet 5 mg PO Q6H PRN (Reason: severe pain) atorvastatin 40 mg Tablet 40 mg PO BEDTIME Qty: 30 0RF aspirin 81 mg Tablet,Delayed Release (Dr/Ec) 81 mg PO DAILY Qty: 30 0RF losartan 25 mg Tablet 25 mg PO DAILY Qty: 30 0RF Protocol: Hold for SBP< HOLD for SBP < : 90 omeprazole 20 mg Capsule,Delayed Release(Dr/Ec) 20 mg PO DAILY@0630 Qty: 30 0RF metoclopramide HCl [Reglan] 5 mg tablet 5 mg PO DAILY PRN (Reason: nausea and vomiting) Qty: 20 0RF torsemide 20 mg tablet 40 mg PO BID glipizide 2.5 mg tablet extended release 24hr 2.5 mg PO DAILY docusate sodium 100 mg capsule 100 mg PO DAILY PRN (Reason: constipation) Discharge Orders: Discharge Order (Routine); Ordered 03/14/23 Ordered By: Tawny Taylro Diet: Advance to usual diet Activity on Discharge: As tolerated Stand Alone Forms: Patient Portal Discharge page Activity Restrictions/Additional Instructions: Topical Wound Care Recommendations: Maintain blood glucose levels per Providers orders. Left Plantar foot - Off Load Pressure - Cleanse with NS, Pat dry. Apply Alginate AG to wound bed followed by dry gauze, Abd Pad, gauze wrap secure with tape. Change every other day may stay in place up to 5 days. Recommend follow up out patient Wound Clinic at [address] [place] [phone] and to call for an appointment at time of discharge. [phone].? Care Plan Goals: Recommendations: 1. Turn and Reposition every 2 hours and as needed for patient comfort. 2. Off Load all bony prominences with use of pillows and heel boots as needed. 3. Provide adequate and supplemental nutrition. 4. Maintain blood glucose levels 5. Left Plantar foot - Off Load Pressure - Cleanse with NS, Pat dry. Apply Alginate AG to wound bed followed by dry gauze, Abd Pad, gauze wrap secure with tape. Change Daily. Follow-up at Wound Care Clinic Health Concerns: Chronic diabetic left foot ulcer End-stage renal disease on dialysis Hypertension Plan of Treatment: Follow-up with primary care provider as needed Take all medications as prescribed Assessment: See discharge summary
[2023-03-14 08:00] VITALS: BP 204/110; PULSE 88; RESP 18; TEMP 36.6; O2SAT 98
[2023-03-14 09:27] LABS: Glucose, Whole Blood 91 mg/dL (60-115)
[2023-03-14] MEDS: Torsemide 20 MG TABLET 40 MG PO (09:36)
[2023-03-14] MEDS: carvediloL 12.5 MG TABLET PO (09:36)
[2023-03-14] MEDS: hydrOXYzine HCL 10 MG TABLET PO ×2 (09:36→12:42)
[2023-03-14] MEDS: NIFEdipine ER 60 MG TAB.ER.24 PO (09:36)
[2023-03-14] MEDS: Aspirin Enteric Coated 81 MG TABLET.DR PO (09:36)
[2023-03-14] MEDS: hydrALAZINE HCl 50 MG TABLET 100 MG PO (09:36)
[2023-03-14] MEDS: Losartan Potassium 25 MG TABLET PO (09:36)
[2023-03-14] MEDS: Isosorbide Mononitrate 30 MG TAB.ER.24H PO (09:36)
[2023-03-14 11:10] LABS: Glucose, Whole Blood 143 mg/dL (60-115)
--- NOTE | 2023-03-14 11:29 | P.PNNP_ITS ---
Subjective Subjective Date of Service: 03/14/23 Interval history: seen and examined no complaints Physical Exam 2 Vital Signs: Vital Signs: Last Vital Signs Temp 97.8 F 03/14/23 08:00 Pulse 88 03/14/23 08:00 Resp 18 03/14/23 08:00 BP 204/110 H 03/14/23 08:00 Pulse Ox 98 03/14/23 08:00 O2 Del Method Room Air 03/14/23 08:00 O2 Flow Rate 4 03/12/23 03:56 BMI result Body Mass Index 28.2 Const: General: no acute distress HEENT: Head: Yes normocephalic and Yes atraumatic Neck: Neck: Yes supple Resp: Auscultation: diminished lung sounds Cardio: Heart sounds: S1 normal heart sound present and S2 normal heart sound present GI: Palpation (GI): Soft to palpation and nontender Extrem: General: Yes edema Objective Data Labs 03/10/23 17:34 03/12/23 03:49 Labs: Laboratory Results - last 24 hr 03/13/23 03/14/23 03/14/23 16:02 09:23 11:07 POC Glucose 151 H 91 143 H Microbiology Microbiology Results: Microbiology 03/10/23 21:05 Blood - Venous Blood Culture - Preliminary No growth after 48 hours. 03/10/23 21:05 Blood - Venous Blood Culture - Preliminary No growth after 48 hours. Procedures Date of Service Date of Service: 03/14/23 Assessment & Plan Assessment and plan (1) End-stage renal disease (ESRD): Status: Acute (2) Diabetic foot: Status: Acute (3) Anemia: Status: Inactive Plan known ESRD on HD t-t- followed by Dr Siddiqi nephrogenic anemia admitted with diabetic foot CT scan of foot with evidence concerning for acute osteomyelitis but MRI was negative seen by surgery BC negative so far REC HD tomorow renal diet phosphate binders VIPUL Abx ID evaluation Time Spent With Patient Time: Total time managing care of this patient today ____ minutes. Progress Note: Quality Stroke Does the patient have a stroke diagnosis?: No
--- NOTE | 2023-03-14 13:19 | MHC.CM.PN ---
pt dcd will resume dilaysis and floatlight powder mixer services from her sister with whom she lila hamilton notified of unable to locaste a vna plan is now for pt to go to wound clinic and sister will do dressing changes
--- NOTE | 2023-03-14 13:50 | PM.PNGS ---
Subjective Subjective Date of Service: 03/14/23 Interval history: States she is going home with VNA tomorrow. Physical Exam Vital Signs: Vital Signs: Last Vital Signs Temp 97.8 F 03/14/23 08:00 Pulse 88 03/14/23 08:00 Resp 18 03/14/23 08:00 BP 204/110 H 03/14/23 08:00 Pulse Ox 98 03/14/23 08:00 O2 Del Method Room Air 03/14/23 08:00 O2 Flow Rate 4 03/12/23 03:56 BMI result Body Mass Index 28.2 Const: General: comfortable and no acute distress Orientation/consciousness: patient oriented x3 Neuro: General: patient oriented x3 and moves all extremities Extrem: Other: Ulcer in the mid left plantar surface with surrounding hard chronic callus, remains clean appearing, no drainage noted, no erythema Objective Data Active Medications Acetaminophen (Acetaminophen 325 Mg Tablet) 650 mg PO Q6H PRN PRN Reason: Pain, Mild (Pain Scale 1-3) Aspirin (Aspirin Enteric Coated 81 Mg Tablet.) 81 mg PO DAILY [facility] Last Admin: 03/14/23 09:36 Dose: 81 mg Documented By: AUBREY Atorvastatin Calcium (Atorvastatin Calcium 40 Mg Tablet) 40 mg PO BEDTIME [facility] Last Admin: 03/13/23 21:41 Dose: Not Given Documented By: ROZINA Non-Admin Reason: Patient Refused Benzonatate (Benzonatate 100 Mg Capsule) 100 mg PO TID PRN PRN Reason: Cough Carvedilol (Carvedilol 12.5 Mg Tablet) 12.5 mg PO BID [facility]; Protocol Last Admin: 03/14/23 09:36 Dose: 12.5 mg Documented By: AUBREY Dextrose (Dextrose 50 % 25 Gm/50 Ml Syringe) 25 gm IVPUSH Q15M PRN; Protocol PRN Reason: per Hypoglycemia Standing Ord. Diphenhydramine HCl (Diphenhydramine Hcl 25 Mg Capsule) 25 mg PO Q4H PRN PRN Reason: Rash/Ithicng Docusate Sodium (Docusate Sodium 100 Mg Capsule) 100 mg PO DAILY PRN PRN Reason: Constipation Docusate Sodium (Docusate Sodium 100 Mg Capsule) 100 mg PO DAILY PRN PRN Reason: constipation Glucose (Glucose Gel 15 Gm Gel..Gram.) 15 gm PO Q15M PRN; Protocol PRN Reason: per Hypoglycemia Standing Ord. Heparin Sodium (Porcine) (Heparin Sodium,Porcine 5,000 Unit/Ml Vial) 5,000 unit SUBCUT Q8H [facility] Last Admin: 03/14/23 12:45 Dose: Not Given Documented By: AUBREY Non-Admin Reason: Patient Refused Hydralazine HCl (Hydralazine Hcl 20 Mg/Ml Vial) 5 mg IVPUSH Q4H PRN; Protocol PRN Reason: SBP > 180 Hydralazine HCl (Hydralazine Hcl 50 Mg Tablet) 100 mg PO TID [facility]; Protocol Last Admin: 03/14/23 09:36 Dose: 100 mg Documented By: AUBREY Hydromorphone HCl (Hydromorphone Hcl 0.5 Mg/0.5 Ml Syringe) 0.5 mg IVPUSH Q6H PRN; Protocol PRN Reason: Pain, Severe (Pain Scale 7-10) Last Admin: 03/14/23 12:41 Dose: 0.5 mg Documented By: AUBREY Hydroxyzine HCl (Hydroxyzine Hcl 10 Mg Tablet) 10 mg PO QID [facility] Last Admin: 03/14/23 12:42 Dose: 10 mg Documented By: AUBREY Piperacillin Sod/Tazobactam (Sod 2.25 gm/ Sodium Chloride) 50 mls @ 100 mls/hr IV Q8H [facility] Last Infusion: 03/14/23 13:18 Dose: Infused Documented By: AUBREY Vancomycin HCl 500 mg/ Sodium (Chloride) 110 mls @ 110 mls/hr IV ONCE ONE Stop: 03/12/23 09:23 Insulin Human Lispro (Insulin Lispro 100 Unit/Ml 3 Ml Vial) 0 unit SUBCUT QIDACHS [facility]; Protocol Last Admin: 03/14/23 11:18 Dose: Not Given Documented By: AUBREY Non-Admin Reason: No Insulin Coverage Isosorbide Mononitrate (Isosorbide Mononitrate 30 Mg Tab.Er.24h) 30 mg PO DAILY [facility]; Protocol Last Admin: 03/14/23 09:36 Dose: 30 mg Documented By: AUBREY Losartan Potassium (Losartan Potassium 25 Mg Tablet) 25 mg PO DAILY [facility]; Protocol Last Admin: 03/14/23 09:36 Dose: 25 mg Documented By: AUBREY Melatonin (Melatonin 3 Mg Tablet) 6 mg PO BEDTIME PRN PRN Reason: Insomnia Metoclopramide HCl (Metoclopramide Hcl 10 Mg/2 Ml Vial) 5 mg IVPUSH Q6H PRN PRN Reason: Nausea and Vomiting Last Admin: 03/13/23 18:12 Dose: 5 mg Documented By: LISA Metoclopramide HCl (Metoclopramide Hcl 5 Mg Tablet) 5 mg PO DAILY PRN PRN Reason: nausea and vomiting Nifedipine (Nifedipine Er 60 Mg Tab.Er.24) 60 mg PO DAILY [facility]; Protocol Last Admin: 03/14/23 09:36 Dose: 60 mg Documented By: AUBREY Omeprazole (Omeprazole 20 Mg Capsule.Dr) 20 mg PO DAILY@0630 [facility] Last Admin: 03/14/23 04:40 Dose: Not Given Documented By: ROZINA Non-Admin Reason: Patient Refused Ondansetron HCl (Ondansetron Hcl 4 Mg/2 Ml Vial) 4 mg IVPUSH Q8H PRN PRN Reason: Nausea and Vomiting Last Admin: 03/12/23 12:48 Dose: 4 mg Documented By: LISA Oxycodone HCl (Oxycodone Hcl Immed Release 5 Mg Tablet) 5 mg PO Q6H PRN PRN Reason: severe pain Pharmacy Consult (Consult Rx Vancomycin Dosing) 1 each MISCELLANE DAILY PRN PRN Reason: Consult order Sodium Chloride (0.9 % Sodium Chloride Flush 3 Ml Syringe) 3 ml IVFLUSH QSPRFT [facility] Last Admin: 03/14/23 07:31 Dose: 3 ml Documented By: AUBREY Torsemide (Torsemide 20 Mg Tablet) 40 mg PO BID [facility]; Protocol Last Admin: 03/14/23 09:36 Dose: 40 mg Documented By: AUBREY Labs 03/10/23 17:34 03/12/23 03:49 Labs: Laboratory Results - last 24 hr 03/13/23 03/14/23 03/14/23 16:02 09:23 11:07 POC Glucose 151 H 91 143 H Procedures Date of Service Date of Service: 03/14/23 Progress Note: A&P Assessment and plan (1) Chronic ulcer of left foot due to diabetes mellitus: Status: Acute Plan Ulcer remains clean appearing. Continue silver alginate followed by fluffs and kerlix wrap daily. Again recommended f/u at wound care center. Time Spent With Patient Time: Total time managing care of this patient today ____ minutes. Quality Stroke Does the patient have a stroke diagnosis?: No VTE Prior VTE?: No VTE Risk Level:: Medical - moderate - high VTE Device Contraindication: Treatment Not Indicated VTE Drug Contraindication: N/A - Med Ordered
== END 2023-03-14 14:16 | disposition home health service (06) | DRG 299 ==
LOC: HO.ED 16:33 → HO.EDOVER 21:33 → HO.S3 03-11 01:09
PROVIDERS: Internal Medicine; Admitting Provider Student in an Organized Health Care Education/Training Program; Emergency Provider Internal Medicine; Visit Provider Nurse Practitioner Acute Care
DX: E11.51 Type 2 diabetes mellitus with diabetic peripheral angiopathy without gangrene (principal); N18.6 End stage renal disease; I12.0 Hypertensive chronic kidney disease with stage 5 chronic kidney disease or end stage renal disease; L97.429 Non-pressure chronic ulcer of left heel and midfoot with unspecified severity; H54.8 Legal blindness, as defined in USA; I70.244 Atherosclerosis of native arteries of left leg with ulceration of heel and midfoot; E11.319 Type 2 diabetes mellitus with unspecified diabetic retinopathy without macular edema; E11.22 Type 2 diabetes mellitus with diabetic chronic kidney disease; D63.1 Anemia in chronic kidney disease; E11.40 Type 2 diabetes mellitus with diabetic neuropathy, unspecified; Z91.148 Patient's other noncompliance with medication regimen for other reason; Z91.158 Patient's noncompliance with renal dialysis for other reason; Z99.2 Dependence on renal dialysis; Z79.82 Long term (current) use of aspirin; Z79.84 Long term (current) use of oral hypoglycemic drugs; Z79.899 Other long term (current) drug therapy
CPT/HCPCS: 36415; 73700; 73720; 80048; 80053; 80202; 82947; 83605; 85025; 85652; 86140; 87040; 90999; 93005; 99285; A9585; J1170; J2405; J2543; J2765; J3370

== ENCOUNTER 2023-03-10 21:09 | Outpatient (BNV) | payer OTHER, SELFPAY | END 2023-03-10 23:20 | PROVIDERS: Admitting Provider Student in an Organized Health Care Education/Training Program; Emergency Provider Internal Medicine; Visit Provider Internal Medicine Cardiovascular Disease | DX: R00.0 Tachycardia, unspecified (principal) | CPT/HCPCS: 93010 ==

== ENCOUNTER → 2023-03-10 21:09 | Outpatient (BNV) | payer OTHER, SELFPAY | PROVIDERS: Admitting Provider Student in an Organized Health Care Education/Training Program; Emergency Provider Internal Medicine; Visit Provider Surgery | DX: E11.621 Type 2 diabetes mellitus with foot ulcer (principal); L97.529 Non-pressure chronic ulcer of other part of left foot with unspecified severity | CPT/HCPCS: 97597; 99222; 99232 ==

== ENCOUNTER → 2023-03-10 21:09 | Outpatient (BNV) | payer OTHER, SELFPAY | PROVIDERS: Admitting Provider Student in an Organized Health Care Education/Training Program; Emergency Provider Internal Medicine; Visit Provider Student in an Organized Health Care Education/Training Program | DX: E11.621 Type 2 diabetes mellitus with foot ulcer (principal); L97.529 Non-pressure chronic ulcer of other part of left foot with unspecified severity; N18.6 End stage renal disease; Z99.2 Dependence on renal dialysis | CPT/HCPCS: 99223; 99232; 99239 ==

== ENCOUNTER 2023-03-20 15:53 | Inpatient (IN) | payer OTHER, SELFPAY ==
[2023-03-20] VITALS (14 sets, daily range): BP systolic 161–227; BP diastolic 93–137; PULSE 83–102; RESP 12–21; TEMP 36.5–36.6; O2SAT 95–100; BMI 24.9
--- NOTE | 2023-03-20 | ECG_ITS ---
Test Reason : CP Blood Pressure : / mmHG Vent. Rate : 101 BPM Atrial Rate : 101 BPM P-R Int : 150 ms QRS Dur : 140 ms QT Int : 410 ms P-R-T Axes : 028 -22 043 degrees QTc Int : 531 ms Sinus tachycardia Possible Left atrial enlargement Right bundle branch block Abnormal ECG When compared with ECG of 10-MAR-2023 23:35, Nonspecific T wave abnormality no longer evident in Inferior leads T wave inversion no longer evident in Anterior leads Referred By: Generic ED Physician Electronically Signed By:Vinny Vera
--- NOTE | ~2023-03-20 | XR_ITS ---
EXAMINATION: XR CHEST CLINICAL INFORMATION: Reason for Exam shortness of breath COMPARISON: Chest radiograph 01/20/2023 TECHNIQUE: One view of the chest FINDINGS: Lines and tubes: Right internal jugular central venous catheter tip overlies the right atrium similar to prior. EKG leads overlie the patient. Clear lungs. No pleural effusion. No pneumothorax. Mildly enlarged cardiac silhouette unchanged from prior. XR/XR chest 1V IMPRESSION: 1. Clear lungs. 2. Mildly enlarged cardiac silhouette unchanged from prior.
--- NOTE | ~2023-03-20 | US_ITS ---
EXAMINATION: US VENOUS ULTRASOUND WITH DOPPLER LOWER EXTREMITY, RIGHT CLINICAL INFORMATION: Pain COMPARISON: None available. TECHNIQUE: Ultrasound of the deep veins is performed from the hip to the calf with compression sonography and color and pulse Doppler assessment. Spectral analysis with color-flow imaging is performed. FINDINGS: There is normal venous compression and respiratory variation and augmented flow. The visualized common femoral vein, superficial femoral vein, profunda femoral vein, popliteal vein, and the trifurcation region shows no evidence of deep venous thrombosis. There is no significant popliteal fossa cyst. If the patient's symptoms persist, followup ultrasound in 5 days 7 days might be of value to exclude proximal propagation from a non-visualized calf vein. US/US venous duplex LE RT IMPRESSION: No DVT demonstrated in the right lower extremity.
[2023-03-20 16:39] LABS: MANUAL DIFF FLAG NO
--- NOTE | 2023-03-20 16:40 | PC.NURSE ---
BP 200/115 , JOVON Sandoval aware. Nitroglycerin ordered however pt refusing at this time. it gives me a rash and doesn't work .
[2023-03-20 16:44] LABS: Basophils Percent Auto 0.8 % (0-2); Eosinophils Absolute Auto 0.1 X10*3/uL (0.0-0.4); Eosinophils Percent Auto 2.2 % (0-4); Hematocrit 29.9 % (37.0-47.0); Hemoglobin 9.6 g/dl (12.0-16.0); Imm Gran Abs Auto 0.02 X10*3/uL (0.00-0.03); Imm Gran Pct Auto 0.4 % (0.0-0.4); Lymphocytes Absolute Auto 0.6 X10*3/uL (1.2-4.9); Lymphocytes Percent Auto 12.6 % (20-40); Mean Corpuscular HGB Conc 32.1 g/dl (31.0-35.0); Mean Corpuscular Hemoglobin 31.2 pg (27.0-33.0); Mean Corpuscular Volume 97.1 fL (80.0-98.0); Monocytes Absolute Auto 0.5 X10*3/uL (0.1-1.2); Neutrophils Absolute Auto 3.8 x10*3/uL (2.0-8.3); Platelet Count 170 X10*3/uL (160-400); Red Blood Count 3.08 X10*6/uL (4.20-5.50); Red Cell Distribution Width 15.7 % (11.0-16.0); White Blood Count 5.1 X10*3/uL (4.8-10.8)
[2023-03-20 16:45] LABS: INTERNATIONAL NORM RATIO 1.2 (0.9-1.1); Prothrombin Time 14.3 SEC (11.1-13.3)
[2023-03-20 16:48] LABS: Partial Thromboplastin Time 31.9 SEC (26.0-36.4)
[2023-03-20 16:54] LABS: COVID-19 Test Negative (Negative); IDNOW Serial# 08D9AD1C
[2023-03-20 16:55] LABS: IDNOW Serial# 152EDE1D; Influenza A Negative (Negative); Influenza B2 Negative (Negative)
[2023-03-20 16:56] LABS: Alanine Aminotransferase 15 U/L (0-31); Albumin Level 3.3 g/dL (3.5-5.0); Alkaline Phosphatase 151 U/L (39-117); Anion Gap 17 (12-20); Aspartate Amino Transferase 17 U/L (5-31); Bilirubin Total 0.9 mg/dL (0.0-1.0); Blood Urea Nitrogen 89 mg/dL (9-16); Calcium 8.1 mg/dL (8.4-10.2); Carbon Dioxide 14 mmol/L (22-29); Chloride 109 mmol/L (96-108); Creatinine Clr Calc Pharmacy 9.5; Estimated Glomerular Filt Rate 6; Glucose Random 191 mg/dL (60-115); Potassium 4.7 mmol/L (3.3-5.1); Sodium 135 mmol/L (135-145); Total Protein 7.7 g/dL (6.5-8.0)
--- NOTE | 2023-03-20 17:00 | ED_ITS ---
HPI - General Adult General Chief complaint: Dyspnea Stated complaint: dialysis pt. missed calos today, SOB, chest pain Time Seen by Provider: 03/20/23 16:12 Source: patient, RN notes reviewed and old records reviewed Mode of arrival: EMS Limitations: no limitations History of Present Illness HPI narrative: 32-year-old female with past medical history significant for end-stage renal disease on dialysis, uncontrolled diabetes, hypertension, heart failure with reduced ejection fraction, previous CVA presents for evaluation of shortness of breath and leg swelling. Patient reports that she goes to dialysis ?Tuesdays and only. ? She states that she made a deal with her nutrition representative to make sure she stays for a full 4-1/2 hours on Tuesdays and and she does not go to dialysis on Saturdays She did not go to dialysis this morning She complains of bilateral leg swelling, shortness of breath and chest discomfort Denies any fevers or chills Related Data Home Medications Medication Instructions Recorded Confirmed docusate sodium 100 mg capsule 100 mg PO DAILY PRN constipation 01/29/23 03/11/23 glipizide 2.5 mg tablet, extended 2.5 mg PO DAILY 01/29/23 03/11/23 release 24 hr torsemide 20 mg tablet 40 mg PO BID 01/29/23 03/11/23 carvedilol 12.5 mg tablet 12.5 mg PO BID 03/11/23 03/11/23 hydralazine 25 mg tablet 75 mg PO TID 03/11/23 03/11/23 isosorbide mononitrate 30 mg 30 mg PO DAILY 03/11/23 03/11/23 tablet,extended release 24 hr lidocaine 5 % topical patch 1 patch topical DAILY 03/11/23 03/11/23 nifedipine 60 mg tablet,extended 60 mg PO DAILY 03/11/23 03/11/23 release 24 hr oxycodone 5 mg tablet 5 mg PO Q6H PRN severe pain 03/11/23 03/11/23 Previous Rx's Medication Instructions Recorded aspirin 81 mg tablet,delayed 81 mg PO DAILY #30 tabs 01/29/23 release atorvastatin 40 mg tablet 40 mg PO BEDTIME #30 tabs 01/29/23 losartan 25 mg tablet 25 mg PO DAILY #30 tabs 01/29/23 metoclopramide HCl 5 mg tablet 5 mg PO DAILY PRN nausea and 01/29/23 (Reglan) vomiting #20 tabs omeprazole 20 mg capsule,delayed 20 mg PO DAILY@0630 #30 caps 01/29/23 release doxycycline hyclate 100 mg tablet 100 mg PO BID #10 tabs 03/14/23 off loading boot #1 ea 03/14/23 Allergies Allergy/AdvReac Type Severity Reaction Status Date / Time morphine [MORPHINE] Allergy Intermediate Itching Verified 03/07/23 13:18 azithromycin [From Zithromax] Allergy Hives Verified 03/07/23 13:18 gabapentin Allergy Facial Verified 03/07/23 13:18 Swelling tramadol Allergy Facial Verified 03/07/23 13:18 Swelling Review of Systems 2 Constitutional: Constitutional: Denies chills and Denies fever(s) Eyes: Eyes: Reports blind spots and Reports loss of vision (Chronic blindness) Cardiovascular: Cardiovascular: Reports chest pain, Reports leg edema and Reports dyspnea Respiratory: Respiratory: Reports dyspnea Gastrointestinal: Gastrointestinal: Denies abdominal pain, Reports nausea and Denies vomiting Musculoskeletal: Musculoskeletal: Denies back pain Integumentary/Breasts: Skin/Breast: Denies rash Neurologic: Reports loss of vision (Chronic blindness) [facility] Past Medical History Medical History (Updated 03/20/23 @ 17:13 by Michele Putnam) End-stage renal disease (ESRD) HFrEF (heart failure with reduced ejection fraction) ESRD on dialysis Migraine Diabetic foot ulcer associated with type 2 diabetes mellitus Chronic pain Gastroparesis Non-compliance with renal dialysis Hypertension Hypertensive emergency Diabetes ESRD needing dialysis Cardiomyopathy Metabolic acidosis delivery delivered Anemia in chronic kidney disease (CKD) CKD (chronic kidney disease) Headache, migraine Abnormal finding on echocardiogram Elevated troponin Chest pain Acute worsening of stage 3 chronic kidney disease Generalized edema Sepsis Cellulitis Pleural effusion CHF (congestive heart failure) (~06/07/22) Tachycardia Atypical chest pain Bone infection PAD (peripheral artery disease) Severe anemia Cellulitis and abscess of foot DM foot ulcer Osteomyelitis test positive test positive Asthma Depression with anxiety Diabetic retinopathy Type 2 diabetes mellitus with hyperglycemia, with long-term current use of insulin Blind right eye Diabetes Back pain Surgical History 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 Family History Family History Mother Coronary artery disease Myocardial infarction Stroke Diabetes mellitus Father Myocardial infarction Social History Social History Household Members: Unknown / Unable to assess Household Members Other:: Sister, [id number], nephew Housing: Unknown / Unable to assess Do you presently have visiting nurse or other home services: No (unknown) Alcohol intake: never Comment: refuses camera Patient Tobacco Use Status: Never used Tobacco Smoked in Last 30 Days: No e-Cigarette/Vaping Use: Never Used Second Hand Smoke Exposure: No Use of substances other than those prescribed or required for medical reasons: No Advance Directives: Yes Advance Directives on File: Yes Advance Directives Date on File: 03/08/20 Patient : No service: No Current occupational status: unemployed and disabled Gender identity: Female Physical Exam ED Vital Signs: Vital Signs - 24 hr 03/20/23 16:18 03/20/23 16:24 03/20/23 18:00 Temperature 97.8 F 97.7 F 97.8 F Pulse Rate 97 96 93 Respiratory Rate 16 18 16 Blood Pressure 204/115 H 200/115 H 222/137 H Pulse Oximetry 100 100 100 Oxygen Delivery Method Nasal Cannula Nasal Cannula Nasal Cannula Oxygen Flow Rate 4 4 03/20/23 18:49 Temperature 98 F Pulse Rate 92 Respiratory Rate 16 Blood Pressure 203/130 H Pulse Oximetry 100 Oxygen Delivery Method Nasal Cannula Oxygen Flow Rate 4 BMI result Body Mass Index 24.9 Const General: healthy appearing, comfortable, no acute distress, alert and awake Nutritional Appearance: well nourished Orientation/consciousness: patient oriented x3 HENMT Head: Yes normocephalic and Yes atraumatic Eyes Other: Right pupil is lost over with conjunctival injection. Pupils: pupils not ERRL Neck Neck: Yes full ROM Resp Other: Diminished but otherwise clear to auscultation Effort & Inspection: normal respiratory effort, able to speak in complete sentences and not labored Cardio Rate: regular rate Rhythm: regular rhythm GI Inspection: No distended Palpation (GI): Soft to palpation, not firm, nontender, no guarding and not rigid Skin General skin exam: elasticity normal Neuro General: patient oriented x3 Cranial nerves: No Equal, round and reactive pupils present and Yes Bilaterally intact EOM present Cognition (Neuro): normal cognition Extrem Other: Moving all extremities well without any obvious deformities Course Reevaluation(s) Reevaluation #1: Patient's workup largely unremarkable. She remains quite hypertensive actually increasing after receiving clonidine. I ordered hydralazine 10 mg IV. Her blood pressure improved slightly to 203/130. Her potassium is normal, EKG without acute findings, there is no evidence of significant CHF. Will discuss with nephrology. The patient is due for dialysis as she has not gone since last Time: 19:28 Reevaluation #2: Discussed with Nephrology, Dr. Santo from [facility] who recommends labetalol IV push and the patient will be scheduled for dialysis early tomorrow morning. Will discuss with the hospitalist Time: 19:51 Medications Administered Discontinued Medications Generic Name Dose Route Start Last Admin Trade Name Freq PRN Reason Stop Dose Admin Clonidine HCl 0.3 mg 03/20/23 17:09 03/20/23 17:34 Clonidine Hcl 0.1 Mg Tablet PO 03/20/23 17:10 0.3 mg ONCE ONE Administration Protocol Hydralazine HCl 10 mg 03/20/23 18:25 03/20/23 18:30 Hydralazine Hcl 20 Mg/Ml Vial IVPUSH 03/20/23 18:26 10 mg ONCE ONE Administration Protocol Hydromorphone HCl 1 mg 03/20/23 16:58 03/20/23 17:35 Hydromorphone Hcl 1 Mg/Ml Syringe IVPUSH 03/20/23 16:59 1 mg ONCE ONE Administration Protocol Nitroglycerin 1 inch 03/20/23 16:23 03/20/23 17:33 Nitroglycerin 2 % Oint 1 Gm Packet TRANSDERMA 03/20/23 16:24 Not Given ONCE ONE Ondansetron HCl 4 mg 03/20/23 16:58 03/20/23 17:34 Ondansetron Hcl 4 Mg/2 Ml Vial IVPUSH 03/20/23 16:59 4 mg ONCE ONE Administration Procedures Procedure Narrative Procedure Narrative: Using ultrasound guidance I was able to get a 20 gauge IV in the left upper arm. There was good blood return and the line flushed well postprocedure. There were no complications. Medical Decision Making Medical Decision Making MDM Narrative: This is a 32 female who is well known to this hospital for frequent admissions due to dialysis, hypertension. She presents for similar complaints of shortness of breath. The patient has not been to dialysis in 5 days per her report. Her oxygen saturation is 100% on room air. I do not hear any crackles on auscultation. She is still likely some degree of heart failure given her history. She is hypertensive with a blood pressure of 200/115. The patient declined nitro paste citing ?it makes me itchy and makes my blood pressure go up. ? We will give her clonidine 0.3 mg instead Differential Diagnosis Differential Diagnoses: The differential diagnosis associated with the presentation includes CHF End-stage renal disease Volume overload Missed dialysis Hypertensive urgency Admission/Observation Consideration of admission/observation: Escalation of care including admission/observation considered Consult Healthcare Provider Management of the patient was discussed with: [employer] [employer] (Nephrology, [facility]) Lab Data MDM Lab Attestation statement: I reviewed the patient's lab results. Patient has no leukocytosis. She has a mild normocytic anemia consistent with her recent baseline. Patient's potassium is notably normal at 4.7. Her CO2 is low at 14, unclear etiology but possibly related to tachypnea. Patient's BUN elevated to 89 with a creatinine 7.74. This is consistent with her known end- stage renal disease. 03/20/23 16:16 03/20/23 16:16 Labs: Lab Results 03/20/23 03/20/23 Range/Units 16:16 16:32 WBC 5.1 (4.8-10.8) X10*3/uL RBC 3.08 L (4.20-5.50) X10*6/uL Hgb 9.6 L (12.0-16.0) g/dl Hct 29.9 L (37.0-47.0) % MCV 97.1 (80.0-98.0) fL MCH 31.2 (27.0-33.0) pg MCHC 32.1 (31.0-35.0) g/dl RDW 15.7 (11.0-16.0) % Plt Count 170 (160-400) X10*3/uL MPV 12.0 (9.4-12.3) fL Immature Gran % (Auto) 0.4 (0.0-0.4) % Neut % (Auto) 75.0 H (45-73) % Lymph % (Auto) 12.6 L (20-40) % Perkins % (Auto) 9.0 (2-11) % Eos % (Auto) 2.2 (0-4) % Baso % (Auto) 0.8 (0-2) % Lymph # (Auto) 0.6 L (1.2-4.9) X10*3/uL Perkins # (Auto) 0.5 (0.1-1.2) X10*3/uL Eos # (Auto) 0.1 (0.0-0.4) X10*3/uL Baso # (Auto) 0.0 (0.0-0.2) X10*3/uL Abs Immat Gran (auto) 0.02 (0.00-0.03) X10*3/uL Absolute Neuts (auto) 3.8 (2.0-8.3) x10*3/uL Absolute Nucleated RBC 0.000 (0.0-0.012) X10*3/uL Nucleated RBC % (auto) 0.0 (0.0-0.2) /100WBC PT 14.3 H (11.1-13.3) SEC INR 1.2 H (0.9-1.1) APTT 31.9 (26.0-36.4) SEC Sodium 135 (135-145) mmol/L Potassium 4.7 (3.3-5.1) mmol/L Chloride 109 H (96-108) mmol/L Carbon Dioxide 14 L (22-29) mmol/L Anion Gap 17 (12-20) BUN 89 H (9-16) mg/dL Creatinine 7.74 H* (0.5-1.4) mg/dL Estim Creat Clear Calc 9.5 Estimated GFR 6 Random Glucose 191 H (60-115) mg/dL Calcium 8.1 L D (8.4-10.2) mg/dL Total Bilirubin 0.9 (0.0-1.0) mg/dL AST 17 (5-31) U/L ALT 15 (0-31) U/L Alkaline Phosphatase 151 H (39-117) U/L Total Protein 7.7 (6.5-8.0) g/dL Albumin 3.3 L (3.5-5.0) g/dL COVID-19 ([facility]) Negative (Negative) COVID-19 Clin Com See Note Influenza Type A ([facility]) Negative (Negative) Influenza Type B ([facility]) Negative (Negative) Influenza A & B Note See Note Independent Interpretation I performed an independent interpretation of an: EKG (Sinus tachycardia rate of 101 beats per minute. No ST segment elevations or depressions.) External Record Review External record reviewed: Inpatient record, Outpatient record and Prior outpatient labs Prescription Management I considered prescription management with: Pain Medication Chronic Conditions Patient?s care impacted by: Diabetes and Hypertension Discharge Plan Discharge Clinical Impression: ESRD on dialysis Patient Disposition: Admitted As Inpatient Prescriptions: No Action carvedilol 12.5 mg tablet 12.5 mg PO BID isosorbide mononitrate 30 mg tablet extended release 24 hr 30 mg PO DAILY hydralazine 25 mg tablet 75 mg PO TID nifedipine 60 mg tablet extended release 24hr 60 mg PO DAILY lidocaine 5 % adhesive patch,medicated 1 patch topical DAILY oxycodone 5 mg tablet 5 mg PO Q6H PRN (Reason: severe pain) doxycycline hyclate 100 mg tablet 100 mg PO BID Qty: 10 0RF (DME) off loading boot Kit See Rx Instructions .Route Qty: 1 0RF Rx Instructions: As directed atorvastatin 40 mg Tablet 40 mg PO BEDTIME Qty: 30 0RF aspirin 81 mg Tablet,Delayed Release (Dr/Ec) 81 mg PO DAILY Qty: 30 0RF losartan 25 mg Tablet 25 mg PO DAILY Qty: 30 0RF Protocol: Hold for SBP< HOLD for SBP < : 90 omeprazole 20 mg Capsule,Delayed Release(Dr/Ec) 20 mg PO DAILY@0630 Qty: 30 0RF metoclopramide HCl [Reglan] 5 mg tablet 5 mg PO DAILY PRN (Reason: nausea and vomiting) Qty: 20 0RF torsemide 20 mg tablet 40 mg PO BID glipizide 2.5 mg tablet extended release 24hr 2.5 mg PO DAILY docusate sodium 100 mg capsule 100 mg PO DAILY PRN (Reason: constipation)
[2023-03-20] MEDS: ondansetron HCL 4 MG/2 ML VIAL IVPUSH ×2 (17:34→22:32)
[2023-03-20] MEDS: cloNIDine HCL 0.1 MG TABLET 0.3 MG PO (17:34)
[2023-03-20] MEDS: HYDROmorphone HCl 1 MG/ML SYRINGE IVPUSH (17:35)
[2023-03-20] MEDS: hydrALAZINE HCl 20 MG/ML VIAL 10 MG IVPUSH (18:30)
--- NOTE | 2023-03-20 18:35 | PC.NURSE ---
PT vomited large amount of undigested food. BPs still 200/100's, JOVON Sandoval aware. Hydralizine 10mg ordered and given. Effect pending.
[2023-03-20] MEDS: Labetalol HCL 100 MG/20 ML VIAL 10 MG IVPUSH (20:25)
--- NOTE | 2023-03-20 20:36 | PC.NURSE ---
PT laying in bed, appears to be in no apparent distress. Labatelol 10mg pushed. See VS documentation. certified performance technologist at bedside.
--- NOTE | 2023-03-20 20:51 | PHA.MEDREC ---
Pharmacy Consult ? Medication Reconciliation Pharmacy has completed the medication reconciliation Confirmed patient medication. Patient states that they have not started Sevelamer, and Vitamin D but she has picked themup from pharmacy. Abbie Betancourt CPhT
--- NOTE | 2023-03-20 21:24 | PM.IMHP ---
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 Her last dialysis session was 4 days ago. She follows with Dr. Trevino in Nephrology. She was discharged on 03/14 and was discharged on 5 days of doxycycline. Denies fevers, chills, purulent drainage. Her sister has been changing dressings. Patient with hypertensive urgency with blood pressure up to 222/137 with improvement to 167/117 on admission following 10 mg IV labetalol, 0.3 mg clonidine, 10 mg hydralazine. Vitals otherwise stable. Hematology studies unremarkable, consistent with baseline. Creatinine 7.74, BUN 89. Electrolyte levels normal except for CO2 14. Glucose 143. Venous duplex of the right lower extremity negative for DVT. Chest x-ray without any acute cardiopulmonary abnormality but shows mildly enlarged cardiac silhouette similar to prior imaging. Review of Systems Review of Systems: General: No fevers, malaise, unintentional weight loss HEENT: No blurred vision, diplopia. No sore throat, nasal congestion, rhinorrhea, sinus pain, ear pain Cardiovascular: +pleuritic chest pain. No chest pressure, palpitations, or leg edema Respiratory: +sob, +chronic cough. No wheezing GI: +nausea, +vomiting. No abdominal pain, diarrhea, constipation, melena, hematochezia : No dysuria, hematuria, increased urinary frequency, decreased urinary output MSK: No myalgia, back pain Neuro: No headaches, weakness, paresthesias Skin: +ulcer L foot [facility] Medical History End-stage renal disease (ESRD) HFrEF (heart failure with reduced ejection fraction) ESRD on dialysis Migraine Diabetic foot ulcer associated with type 2 diabetes mellitus Chronic pain Gastroparesis Non-compliance with renal dialysis Hypertension Hypertensive emergency Diabetes ESRD needing dialysis Cardiomyopathy Metabolic acidosis delivery delivered Anemia in chronic kidney disease (CKD) CKD (chronic kidney disease) Headache, migraine Abnormal finding on echocardiogram Elevated troponin Chest pain Acute worsening of stage 3 chronic kidney disease Generalized edema Sepsis Cellulitis Pleural effusion CHF (congestive heart failure) (~06/07/22) Tachycardia Atypical chest pain Bone infection PAD (peripheral artery disease) Severe anemia Cellulitis and abscess of foot DM foot ulcer Osteomyelitis test positive test positive Asthma Depression with anxiety Diabetic retinopathy Type 2 diabetes mellitus with hyperglycemia, with long-term current use of insulin Blind right eye Diabetes Back pain Family History Mother Coronary artery disease Myocardial infarction Stroke Diabetes mellitus Father Myocardial infarction Surgical History 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 Social History Household Members: Unknown / Unable to assess Household Members Other:: Sister, [id number], nephew Housing: Unknown / Unable to assess Do you presently have visiting nurse or other home services: No (unknown) Alcohol intake: never Comment: refuses camera Patient Tobacco Use Status: Never used Tobacco Smoked in Last 30 Days: No e-Cigarette/Vaping Use: Never Used Second Hand Smoke Exposure: No Use of substances other than those prescribed or required for medical reasons: No Advance Directives: Yes Advance Directives on File: Yes Advance Directives Date on File: 03/08/20 Patient : No service: No Current occupational status: unemployed and disabled Gender identity: Female Meds Allergies Allergy/AdvReac Type Severity Reaction Status Date / Time morphine [MORPHINE] Allergy Intermediate Itching Verified 03/07/23 13:18 azithromycin [From Zithromax] Allergy Hives Verified 03/07/23 13:18 gabapentin Allergy Facial Verified 03/07/23 13:18 Swelling tramadol Allergy Facial Verified 03/07/23 13:18 Swelling Active Medications: Current Medications Acetaminophen (Acetaminophen 325 Mg Tablet) 650 mg PO Q6H PRN PRN Reason: Pain, Mild (Pain Scale 1-3) Aspirin (Aspirin Enteric Coated 81 Mg Tablet.Dr) 81 mg PO DAILY [facility] Carvedilol (Carvedilol 12.5 Mg Tablet) 12.5 mg PO BID [facility]; Protocol Heparin Sodium (Porcine) (Heparin Sodium,Porcine 5,000 Unit/Ml Vial) 5,000 unit SUBCUT Q12H [facility] Hydralazine HCl (Hydralazine Hcl 25 Mg Tablet) 75 mg PO TID [facility]; Protocol Isosorbide Mononitrate (Isosorbide Mononitrate 30 Mg Tab.Er.24h) 30 mg PO DAILY [facility]; Protocol Ondansetron HCl (Ondansetron Hcl 4 Mg/2 Ml Vial) 4 mg IVPUSH Q8H PRN PRN Reason: Nausea and Vomiting Senna (Sennosides 8.6 Mg Tablet) 17.2 mg PO BEDTIME PRN PRN Reason: Constipation Sodium Chloride (0.9 % Sodium Chloride Flush 3 Ml Syringe) 3 ml IVFLUSH QSHIFT [facility] Vitamin D (Cholecalciferol (Vitamin D3) 25 Mcg Tablet) 50 mcg PO DAILY [facility] Home Medications Medication Instructions Recorded Confirmed Last Taken Type carvedilol 12.5 mg tablet 12.5 mg PO BID 03/11/23 03/20/23 03/20/23 History hydralazine 25 mg tablet 75 mg PO TID 03/11/23 03/20/23 03/20/23 History isosorbide mononitrate 30 mg 30 mg PO DAILY 03/11/23 03/20/23 03/20/23 History tablet,extended release 24 hr lidocaine 5 % topical patch 1 patch topical DAILY 03/11/23 03/20/23 03/20/23 History nifedipine 60 mg tablet,extended 60 mg PO DAILY 03/11/23 03/20/23 03/20/23 History release 24 hr oxycodone 5 mg tablet 5 mg PO Q6H PRN severe pain 03/11/23 03/20/23 03/20/23 History acetaminophen 325 mg tablet 650 mg PO Q4H PRN mild pain 03/20/23 03/20/23 Unknown History cholecalciferol (vitamin D3) 50 50 mcg PO DAILY 03/20/23 03/20/23 Unknown History mcg (2,000 unit) capsule sevelamer carbonate 800 mg tablet 800 mg PO TID 03/20/23 03/20/23 Unknown History Physical Exam Vital Signs and Narrative: Vital Signs: Last Vital Signs Temp 98 F 03/20/23 18:49 Pulse 83 03/20/23 21:22 Resp 18 03/20/23 21:22 BP 167/117 H 03/20/23 21:22 Pulse Ox 95 03/20/23 21:22 O2 Del Method Nasal Cannula 03/20/23 21:22 O2 Flow Rate 4 03/20/23 21:22 Oxygen Flow Rate 4 03/20/23 16:18 BMI result Body Mass Index 24.9 Constitutional - Awake and Alert, No apparent distress Eyes - PERRLA, EOMI Cardiovascular - S1S2, RRR, 1+ble edema Respiratory - Normal lung expansion, Normal respiratory effort, No respiratory distress, scattered crackles Gastrointestinal - vomiting, NT / ND; +BS; No rebound or guarding Extremities - no calf tenderness bilaterally Skin - Warm/Dry. 1.5cmx1.2cm shallow ulceration planatar aspect left midfoot without surrounding erythema or purulent drainage Neurological - Alert & oriented x3 Psychological - Appropriate affect Results Labs 03/20/23 16:16 03/20/23 16:16 Labs: Laboratory Results - last 24 hr 03/20/23 03/20/23 16:16 16:32 MCV 97.1 MCH 31.2 MCHC 32.1 RDW 15.7 Plt Count 170 MPV 12.0 Immature Gran % (Auto) 0.4 Neut % (Auto) 75.0 H Lymph % (Auto) 12.6 L Sebastian % (Auto) 9.0 Eos % (Auto) 2.2 Baso % (Auto) 0.8 Lymph # (Auto) 0.6 L Sebastian # (Auto) 0.5 Eos # (Auto) 0.1 Baso # (Auto) 0.0 Abs Immat Gran (auto) 0.02 Absolute Neuts (auto) 3.8 Absolute Nucleated RBC 0.000 Nucleated RBC % (auto) 0.0 PT 14.3 H INR 1.2 H APTT 31.9 Anion Gap 17 Estim Creat Clear Calc 9.5 Estimated GFR 6 Random Glucose 191 H Calcium 8.1 L D Total Bilirubin 0.9 AST 17 ALT 15 Alkaline Phosphatase 151 H Total Protein 7.7 Albumin 3.3 L COVID-19 (CARO) Negative COVID-19 Clin Com See Note Influenza Type A (MILTON) Negative Influenza Type B ([facility]ILTON) Negative Influenza A & B Note See Note Imaging Radiologist's Impressions: Impressions Chest X-Ray 03/20/23 17:00 IMPRESSION: 1. Clear lungs. 2. Mildly enlarged cardiac silhouette unchanged from prior. Venous Duplex 03/20/23 17:26 IMPRESSION: No DVT demonstrated in the right lower extremity. 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 K normal -continue sevelamar -Neprhology consult -HD tomorrow, no urgent HD per nephro -low-sodium diet #Acute on chronic metabolic acidosis -due to above -CO2 14. VBG pending -650 mg sodium bicarbonate t.i.d. p.o. -ondansetron p.r.n. for nausea/vomiting. Give addl dose dilaudid, add reglan prn -nephrology consult # hypertensive urgency -BP improved on admission at 167/117 following IV labetalol, hydralazine, and clonidine -not always compliant with antihypertensives at home -resume nifedipine, losartan, isosorbide, hydralazine, carvedilol # chronic diabetic left foot ulcer -MRI negative for osteomyelitis during last admission. 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 operator consult # klu-yvonhrd-lelxdcihg type 2 diabetes -hemoglobin A1c pending -POC glucose, diabetic diet -Humalog on sliding scale #HFrEF with chronic hypoxemic respiratory failure -Resume HD as above for management of volume -not on po diuretics -continue 4 L supplemental O2, home dose #CAD/Cardiomyopathy -continue ASA, beta-mohamud, isosorbide # diabetic polyneuropathy -continue home pain medications DVT prophylaxis-heparin Full code Patient requires inpatient stay at least 2 midnights for management of acute volume overload secondary to hemodialysis noncompliance as well as management of hypertensive urgency requiring IV antihypertensive agents and close monitoring of vital signs as well as expert consultation Quality Stroke Does the patient have a stroke diagnosis?: No VTE Prior VTE?: No VTE Risk Level:: Medical - moderate - high VTE Device Contraindication: Treatment Not Indicated VTE Drug Contraindication: N/A - Med Ordered
[2023-03-20 22:07] LABS: VBG Base Excess -11.5 mmol/L; VBG HCO3 13 mmol/L (22-26); VBG pCO2 28 mmHg; VBG pH 7.28 (7.32-7.43); VBG pO2 56 mmHg
[2023-03-20 22:08] LABS: Venous Blood Gas Refer to POC result
--- NOTE | 2023-03-20 22:42 | PC.NURSE ---
Late entry: labetolol had some positive effect bringing patients blood pressure as low as 170s/90s. However, pressure increased once again after patient began vomiting. Pt refusing PO medications due to vomiting. JOVON Christina aware, awaiting new orders. Bed assignment placed but on hold due to safety of patient going to med-surg with limited monitoring. Pt offers no complaints to this RN, denies symptoms of high BP, endorses generalized chronic body pains.
[2023-03-20] MEDS: hydrALAZINE HCl 25 MG TABLET 75 MG PO (23:11)
[2023-03-20] MEDS: Sodium Bicarbonate 650 MG TABLET PO (23:11)
[2023-03-20] MEDS: carvediloL 12.5 MG TABLET PO (23:11)
[2023-03-20] MEDS: HYDROmorphone HCl 0.5 MG/0.5 ML SYRINGE IVPUSH (23:12)
[2023-03-21] VITALS (12 sets, daily range): BP systolic 127–241; BP diastolic 62–119; PULSE 69–90; RESP 18–20; TEMP 36–36.5; O2SAT 95–100
[2023-03-21] MEDS: 0.9 % Sodium Chloride Flush 3 ML SYRINGE IVFLUSH ×3 (00:22→22:55)
[2023-03-21] MEDS: hydrALAZINE HCl 20 MG/ML VIAL 10 MG IVPUSH ×2 (00:38→06:30)
[2023-03-21] MEDS: Metoclopramide HCl 10 MG/2 ML VIAL 5 MG IVPUSH (00:44)
[2023-03-21] MEDS: cloNIDine HCL 0.2 MG TABLET PO ×4 (01:54→22:55)
--- NOTE | 2023-03-21 06:46 | PC.NURSE ---
Pt admitted to [facility] med-tele from ED at 00:10 on 03/21. Pt is A&Ox4. Hypertensive on arrival 241/116, manual 222/100. Pt c/o a headache and continued nausea on her arrival to the unit despite prn dilaudid and prn zofran given in the ED. Pt was medicated with prn reglan with +effect, prn hydralazine with +effect with BP recheck 160/96. orders for po clonidine given on BP reassess 171/81. notified with goal given for systolic less than 180, and written order to reassess BP 8936-6065 hour. Pt was offered prn tylenol and oxycodone for pain. Pt refused, stated That don't work. I only want dilaudid IV . Dr. Saran Maria notified. Pt encouraged to call for currently ordered prn pain meds should she need/want them. Pt also c/o itching. notified of itching and ordered po benadryl; When offered the benadryl, the pt asked this specifications writer if the benadryl was a pill. When this specifications writer replied yes , the pt replied I only want it if it's IV . made aware. 0600 hour BP reassessment was 234/119, manual 220/90. Pt verbalized upset with frequent BP reassessment done per MD order. Attempts were made to educate pt on importance of managing BP and assessing response to medication interventions though unsuccessful. Pt refused morning lab draw. Dr. Saran Maria notified and prn hydralazine was given as ordered. written orders for next BP reassessment at 08:00, with instructions to give clonidine early if BP remains high on 08:00 reassessment. See shift assessment and EMAR for full details. Handoff report given to oncoming RN at 06:45.
[2023-03-21 07:18] LABS: Glucose, Whole Blood 151 mg/dL (60-115)
[2023-03-21 08:00] LABS: Estimated Average Glucose 123 mg/dL; Hemoglobin A1c % 5.9 % (<6.0)
[2023-03-21] MEDS: Sevelamer Carbonate Tablet 800 MG TABLET PO ×2 (08:43→17:36)
[2023-03-21] MEDS: carvediloL 12.5 MG TABLET PO ×2 (08:43→22:55)
[2023-03-21] MEDS: Aspirin Enteric Coated 81 MG TABLET.DR PO (08:44)
[2023-03-21] MEDS: NIFEdipine ER 60 MG TAB.ER.24 PO (08:44)
[2023-03-21] MEDS: Isosorbide Mononitrate 30 MG TAB.ER.24H PO (08:44)
[2023-03-21] MEDS: Cholecalciferol (Vitamin D3) 25 MCG TABLET 50 MCG PO (08:44)
[2023-03-21] MEDS: Losartan Potassium 25 MG TABLET PO (08:44)
[2023-03-21] MEDS: Sodium Bicarbonate 650 MG TABLET PO (08:44)
[2023-03-21 09:33] LABS: Appearance Urine Clear; Color Urine Yellow; Glucose Urine UA 250 mg/dL (Negative); Leukocyte Esterase Urine Negative (Negative); Nitrite Urine Negative (Negative); Specific Gravity - Urine 1.015 (1.005-1.025); UMIC TRIGGER UACC YES; Urine Blood Trace (Negative); Urine Ketones Negative (Negative); Urine Protein 300 (3+) mg/dL (Neg-Trace)
[2023-03-21 09:35] LABS: Bacteria Urine None Seen (None Seen); Hyaline Casts Urine 0-2 /LPF (0-2); RBC Urine 0-2 /HPF (0-2); WBC Urine 0-5 /HPF (0-5)
--- NOTE | 2023-03-21 09:50 | MHC.CM.PN ---
IMM 03/21/23, discussed with pt., she does not sign due to being legally blind, sent to sisterJosy per pt.s request. Pt lives with sister, who is her LEAD NEURODIAGNOSTIC TECHNOLOGIST. HCP on file and confirmed: Michael Taylor, pt. uses a wheel chair, and home O2, she goes to Dialysis at [facility] [place] on . PCP is: Abdon Beard. Her sister will transport home upon DC.
--- NOTE | 2023-03-21 10:17 | HO.PM.IMPN ---
Subjective Subjective Date of Service: 03/21/23 Interval History: Seen and evaluated this morning reporting generalized pain Denies fever or chills BP better controlled Waiting for dialysis Review of Systems Review of Systems: Yes all other systems are reviewed and are negative Physical Exam Vital Signs: Vital Signs: Last Vital Signs Temp 96.8 F 03/21/23 07:08 Pulse 72 03/21/23 07:08 Resp 20 03/21/23 07:08 BP 154/81 H 03/21/23 07:08 Pulse Ox 99 03/21/23 07:08 O2 Del Method Nasal Cannula 03/21/23 07:08 O2 Flow Rate 4 03/21/23 07:08 Oxygen Flow Rate 4 03/20/23 16:18 BMI result Body Mass Index 24.9 Const: Other: Constitutional : Awake, interactive Neck : Normal inspection, Supple Eyes: Legally blind Cardiovascular : RRR, elevated? JVP, trace lower extremity edema Respiratory : fair bilateral air entry,? basal fine crackles, no wheezes or rhonchi Gastrointestinal:? soft, lax, Normal bowel sounds, Non tender Skin : Warm, Dry. 1.5cmx1.2cm shallow ulceration planatar aspect left midfoot without surrounding erythema or purulent drainage Neurological : Alert & oriented x3, No focal deficit Objective Data Active Medications Acetaminophen (Acetaminophen 325 Mg Tablet) 650 mg PO Q6H PRN PRN Reason: Pain, Mild (Pain Scale 1-3) Aspirin (Aspirin Enteric Coated 81 Mg Tablet.) 81 mg PO DAILY [facility] Last Admin: 03/21/23 08:44 Dose: 81 mg Documented By: RAFAEL Carvedilol (Carvedilol 12.5 Mg Tablet) 12.5 mg PO BID [facility] [place]; Protocol Last Admin: 03/21/23 08:43 Dose: 12.5 mg Documented By: RAFAEL Clonidine HCl (Clonidine Hcl 0.2 Mg Tablet) 0.2 mg PO TID [facility]; Protocol Last Admin: 03/21/23 08:44 Dose: 0.2 mg Documented By: RAFAEL Dextrose (Dextrose 50 % 25 Gm/50 Ml Syringe) 25 gm IVPUSH Q15M PRN; Protocol PRN Reason: per Hypoglycemia Standing Ord. Glucose (Glucose Gel 15 Gm Gel..Gram.) 15 gm PO Q15M PRN; Protocol PRN Reason: per Hypoglycemia Standing Ord. Heparin Sodium (Porcine) (Heparin Sodium,Porcine 5,000 Unit/Ml Vial) 5,000 unit SUBCUT Q12H [facility] [place] Last Admin: 03/21/23 08:59 Dose: Not Given Documented By: RAFAEL Non-Admin Reason: Patient Refused Hydralazine HCl (Hydralazine Hcl 25 Mg Tablet) 75 mg PO TID [facility] [place]; Protocol Last Admin: 03/21/23 08:46 Dose: Not Given Documented By: RAFAEL Non-Admin Reason: Patient Refused Hydralazine HCl (Hydralazine Hcl 20 Mg/Ml Vial) 10 mg IVPUSH Q4H PRN; Protocol PRN Reason: SBP > 180 Last Admin: 03/21/23 06:30 Dose: 10 mg Documented By: MAI Hydromorphone HCl (Hydromorphone Hcl 0.5 Mg/0.5 Ml Syringe) 0.5 mg IVPUSH Q6H PRN; Protocol PRN Reason: Pain, Severe (Pain Scale 7-10) Insulin Human Lispro (Insulin Lispro 100 Unit/Ml 3 Ml Vial) 0 unit SUBCUT QIDACHS [facility] [place]; Protocol Last Admin: 03/21/23 08:45 Dose: Not Given Documented By: RAFAEL Non-Admin Reason: No Insulin Coverage Isosorbide Mononitrate (Isosorbide Mononitrate 30 Mg Tab.Er.24h) 30 mg PO DAILY [facility] [place]; Protocol Last Admin: 03/21/23 08:44 Dose: 30 mg Documented By: RAFAEL Lidocaine (Lidocaine 4 % Patch Adh..Patch) 1 patch TRANSDERMA DAILY [facility] [place] Last Admin: 03/21/23 08:58 Dose: Not Given Documented By: RAFAEL Non-Admin Reason: Patient Refused Lorazepam (Lorazepam 0.5 Mg Tablet) 0.5 mg PO BID PRN PRN Reason: Anxiety Losartan Potassium (Losartan Potassium 25 Mg Tablet) 25 mg PO DAILY [facility] [place]; Protocol Last Admin: 03/21/23 08:44 Dose: 25 mg Documented By: RAFAEL Metoclopramide HCl (Metoclopramide Hcl 10 Mg/2 Ml Vial) 5 mg IVPUSH Q4H PRN PRN Reason: Nausea and Vomiting Last Admin: 03/21/23 00:44 Dose: 5 mg Documented By: MAI Nifedipine (Nifedipine Er 60 Mg Tab.Er.24) 60 mg PO DAILY [facility] [place]; Protocol Last Admin: 03/21/23 08:44 Dose: 60 mg Documented By: RAFAEL Ondansetron HCl (Ondansetron Hcl 4 Mg/2 Ml Vial) 4 mg IVPUSH Q8H PRN PRN Reason: Nausea and Vomiting Last Admin: 03/20/23 22:32 Dose: 4 mg Documented By: AMAIRANI Oxycodone HCl (Oxycodone Hcl Immed Release 5 Mg Tablet) 5 mg PO Q6H PRN PRN Reason: severe pain Senna (Sennosides 8.6 Mg Tablet) 17.2 mg PO BEDTIME PRN PRN Reason: Constipation Sevelamer Carbonate (Sevelamer Carbonate Tablet 800 Mg Tablet) 800 mg PO TIDWM [facility] [place] Last Admin: 03/21/23 08:43 Dose: 800 mg Documented By: RAFAEL Sodium Bicarbonate (Sodium Bicarbonate 650 Mg Tablet) 650 mg PO TID [facility] [place] Last Admin: 03/21/23 08:44 Dose: 650 mg Documented By: RAFAEL Sodium Chloride (0.9 % Sodium Chloride Flush 3 Ml Syringe) 3 ml IVFLUSH QSHIFT [facility] [place] Last Admin: 03/21/23 08:59 Dose: Not Given Documented By: RAFAEL Non-Admin Reason: Previously Administered Vitamin D (Cholecalciferol (Vitamin D3) 25 Mcg Tablet) 50 mcg PO DAILY [facility] [place] Last Admin: 03/21/23 08:44 Dose: 50 mcg Documented By: RAFAEL Labs 03/20/23 16:16 03/20/23 16:16 Labs: Laboratory Results - last 24 hr 03/20/23 03/20/23 03/20/23 16:16 16:32 22:01 MCV 97.1 MCH 31.2 MCHC 32.1 RDW 15.7 Plt Count 170 MPV 12.0 Immature Gran % (Auto) 0.4 Neut % (Auto) 75.0 H Lymph % (Auto) 12.6 L [place] % (Auto) 9.0 Eos % (Auto) 2.2 Baso % (Auto) 0.8 Lymph # (Auto) 0.6 L [place] # (Auto) 0.5 Eos # (Auto) 0.1 Baso # (Auto) 0.0 Abs Immat Gran (auto) 0.02 Absolute Neuts (auto) 3.8 Absolute Nucleated RBC 0.000 Nucleated RBC % (auto) 0.0 PT 14.3 H INR 1.2 H APTT 31.9 VBG pH 7.28 L VBG pCO2 28 VBG pO2 56 VBG HCO3 13 L VBG O2 Saturation 82.0 VBG Base Excess -11.5 Anion Gap 17 Estim Creat Clear Calc 9.5 Estimated GFR 6 POC Glucose Random Glucose 191 H Estimat Average Glucose 123 Hemoglobin A1c % 5.9 Calcium 8.1 L D Total Bilirubin 0.9 AST 17 ALT 15 Alkaline Phosphatase 151 H Total Protein 7.7 Albumin 3.3 L Urine Color Urine Appearance Urine pH Ur Specific [place] Urine Protein Urine Glucose (UA) Urine Ketones Urine Blood Urine Nitrite Ur Leukocyte Esterase Urine RBC Urine WBC Ur Squamous Epith Cells Urine Bacteria Hyaline Casts COVID-19 (CARO) Negative COVID-19 Clin Com See Note Influenza Type A (MILTON) Negative Influenza Type B (MILTON) Negative Influenza A & B Note See Note 03/21/23 03/21/23 07:08 09:16 MCV MCH MCHC RDW Plt Count MPV Immature Gran % (Auto) Neut % (Auto) Lymph % (Auto) [place] % (Auto) Eos % (Auto) Baso % (Auto) Lymph # (Auto) [place] # (Auto) Eos # (Auto) Baso # (Auto) Abs Immat Gran (auto) Absolute Neuts (auto) Absolute Nucleated RBC Nucleated RBC % (auto) PT INR APTT VBG pH VBG pCO2 VBG pO2 VBG HCO3 VBG O2 Saturation VBG Base Excess Anion Gap Estim Creat Clear Calc Estimated GFR POC Glucose 151 H Random Glucose Estimat Average Glucose Hemoglobin A1c % Calcium Total Bilirubin AST ALT Alkaline Phosphatase Total Protein Albumin Urine Color Yellow Urine Appearance Clear Urine pH 6.0 Ur Specific [place] 1.015 Urine Protein 300 (3+) H Urine Glucose (UA) 250 H Urine Ketones Negative Urine Blood Trace H Urine Nitrite Negative Ur Leukocyte Esterase Negative Urine RBC 0-2 Urine WBC 0-5 Ur Squamous Epith Cells 3-5 Urine Bacteria None Seen Hyaline Casts 0-2 COVID-19 (CARO) COVID-19 Clin Com Influenza Type A (MILTON) Influenza Type B (MILTON) Influenza A & B Note Assessment and Plan (1) Volume overload: Status: Acute (2) Accelerated essential hypertension: Status: Acute (3) HFrEF (heart failure with reduced ejection fraction): Status: Acute (4) ESRD on dialysis: Status: Acute Plan 32-year-old female with history of ESRD on dialysis TTHSa (those noncompliant with sunday as she does not like to leave the house on sunday), [id number] 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 blind, chronic diabetic foot ulcers s/p bilateral TMA, poorly controlled hypertension (noncompliant with medications), chronic hypoxemic respiratory failure on 4L supplemental O2 at baseline, cardiomyopathy, congestive heart failure, PID, with recurrent hospitalizations due to missed dialysis admitted for management of volume overload and dyspnea 2/2 missed HD #Volume overload/dyspnea in ESRD HD patient due to noncompliance with HD schedule continue sevelamar Neprhology consult for HD this morning low-sodium diet #Acute on chronic metabolic acidosis CO2 14 on admission 650 mg sodium bicarbonate t.i.d. p.o. ondansetron p.r.n. for nausea/vomiting To correct with dialysis # hypertensive urgency better controlled now resume nifedipine, losartan, isosorbide, hydralazine, carvedilol # chronic diabetic left foot ulcer MRI negative for osteomyelitis during last admission. Completed course of doxycycline wound appears clean without evidence of acute infection retrofit installer consult # dac-iwaeezr-[id number] type 2 diabetes hemoglobin A1c 5.9 POC glucose, diabetic diet Humalog on sliding scale #HFrEF with chronic hypoxemic respiratory failure Resume HD as above for management of volume not on po diuretics continue 4 L supplemental O2, home dose #CAD/Cardiomyopathy continue ASA, beta-mohamud, isosorbide # diabetic polyneuropathy continue home pain medications DVT prophylaxis-heparin Full code Patient requires inpatient stay overnight for management of acute volume overload secondary to hemodialysis noncompliance as well as management of hypertensive urgency requiring IV antihypertensive agents and close monitoring of vital signs as well as expert consultation Quality Stroke Does the patient have a stroke diagnosis?: No VTE Prior VTE?: No VTE Risk Level:: Medical - moderate - high VTE Device Contraindication: Treatment Not Indicated VTE Drug Contraindication: N/A - Med Ordered
[2023-03-21] MEDS: HYDROmorphone HCl 0.5 MG/0.5 ML SYRINGE IVPUSH ×3 (10:18→22:54)
[2023-03-21 11:28] LABS: Glucose, Whole Blood 139 mg/dL (60-115)
[2023-03-21 14:16] LABS: MANUAL DIFF FLAG NO
[2023-03-21 14:21] LABS: Basophils Percent Auto 0.5 % (0-2); Eosinophils Absolute Auto 0.1 X10*3/uL (0.0-0.4); Eosinophils Percent Auto 2.7 % (0-4); Hematocrit 28.8 % (37.0-47.0); Hemoglobin 9.6 g/dl (12.0-16.0); Imm Gran Abs Auto 0.06 X10*3/uL (0.00-0.03); Imm Gran Pct Auto 1.6 % (0.0-0.4); Lymphocytes Absolute Auto 0.4 X10*3/uL (1.2-4.9); Lymphocytes Percent Auto 10.1 % (20-40); Mean Corpuscular HGB Conc 33.3 g/dl (31.0-35.0); Mean Corpuscular Hemoglobin 30.9 pg (27.0-33.0); Mean Corpuscular Volume 92.6 fL (80.0-98.0); Mean Platelet Volume 12.1 fL (9.4-12.3); Monocytes Absolute Auto 0.3 X10*3/uL (0.1-1.2); Monocytes Percent Auto 6.8 % (2-11); Neutrophils Absolute Auto 2.9 x10*3/uL (2.0-8.3); Neutrophils Percent Auto 78.3 % (45-73); Platelet Count 165 X10*3/uL (160-400); Red Blood Count 3.11 X10*6/uL (4.20-5.50); Red Cell Distribution Width 15.5 % (11.0-16.0); White Blood Count 3.7 X10*3/uL (4.8-10.8)
[2023-03-21 14:44] LABS: Anion Gap 15 (12-20); Blood Urea Nitrogen 39 mg/dL (9-16); Chloride 102 mmol/L (96-108); Glucose Random 132 mg/dL (60-115); Magnesium 2.1 mg/dL (1.6-2.6); Sodium 135 mmol/L (135-145)
[2023-03-21 15:05] LABS: Calcium 9.2 mg/dL (8.4-10.2); Carbon Dioxide 22 mmol/L (22-29); Creatinine Clr Calc Pharmacy 19.7; Estimated Glomerular Filt Rate 14; Potassium 3.4 mmol/L (3.3-5.1)
[2023-03-21] MEDS: hydrALAZINE HCl 25 MG TABLET 75 MG PO ×2 (16:54→22:55)
[2023-03-21 21:39] LABS: Glucose, Whole Blood 248 mg/dL (60-115)
[2023-03-21] MEDS: Insulin Lispro 100 UNIT/ML 3 ML VIAL SUBCUT (22:54)
--- NOTE | 2023-03-21 23:51 | P.PNNP_ITS ---
Subjective Subjective Date of Service: 03/21/23 Interval history: Seen and evaluated on HD reporting generalized pain Denies fever or chills Physical Exam 2 Vital Signs: Vital Signs: Last Vital Signs Temp 97.5 F 03/21/23 23:31 Pulse 72 03/21/23 23:31 Resp 18 03/21/23 23:31 BP 130/62 03/21/23 23:31 Pulse Ox 96 03/21/23 23:31 O2 Del Method Room Air 03/21/23 23:31 O2 Flow Rate 4 03/21/23 07:08 Oxygen Flow Rate 4 03/20/23 16:18 BMI result Body Mass Index 24.9 Const: Other: Constitutional : Awake, interactive Neck : Normal inspection, Supple Eyes: Legally blind Cardiovascular : RRR, elevated? JVP, trace lower extremity edema Respiratory : fair bilateral air entry,? basal fine crackles, no wheezes or rhonchi Gastrointestinal:? soft, lax, Normal bowel sounds, Non tender Skin : Warm, Dry. 1.5cmx1.2cm shallow ulceration planatar aspect left midfoot without surrounding erythema or purulent drainage Neurological : Alert & oriented x3, No focal deficit Objective Data Labs 03/21/23 14:05 03/21/23 14:05 Labs: Laboratory Results - last 24 hr 03/20/23 03/21/23 03/21/23 16:16 07:08 09:16 WBC RBC Hgb Hct MCV MCH MCHC RDW Plt Count MPV Immature Gran % (Auto) Neut % (Auto) Lymph % (Auto) [place] % (Auto) Eos % (Auto) Baso % (Auto) Lymph # (Auto) [place] # (Auto) Eos # (Auto) Baso # (Auto) Abs Immat Gran (auto) Absolute Neuts (auto) Absolute Nucleated RBC Nucleated RBC % (auto) Sodium Potassium Chloride Carbon Dioxide Anion Gap BUN Creatinine Estim Creat Clear Calc Estimated GFR POC Glucose 151 H Random Glucose Estimat Average Glucose 123 Hemoglobin A1c % 5.9 Calcium Magnesium Urine Color Yellow Urine Appearance Clear Urine pH 6.0 Ur Specific [place] 1.015 Urine Protein 300 (3+) H Urine Glucose (UA) 250 H Urine Ketones Negative Urine Blood Trace H Urine Nitrite Negative Ur Leukocyte Esterase Negative Urine RBC 0-2 Urine WBC 0-5 Ur Squamous Epith Cells 3-5 Urine Bacteria None Seen Hyaline Casts 0-2 03/21/23 03/21/23 03/21/23 10:52 14:05 21:34 WBC 3.7 L RBC 3.11 L Hgb 9.6 L Hct 28.8 L MCV 92.6 MCH 30.9 MCHC 33.3 RDW 15.5 Plt Count 165 MPV 12.1 Immature Gran % (Auto) 1.6 H Neut % (Auto) 78.3 H Lymph % (Auto) 10.1 L [place] % (Auto) 6.8 Eos % (Auto) 2.7 Baso % (Auto) 0.5 Lymph # (Auto) 0.4 L [place] # (Auto) 0.3 Eos # (Auto) 0.1 Baso # (Auto) 0.0 Abs Immat Gran (auto) 0.06 H Absolute Neuts (auto) 2.9 Absolute Nucleated RBC 0.000 Nucleated RBC % (auto) 0.0 Sodium 135 Potassium 3.4 D Chloride 102 Carbon Dioxide 22 Anion Gap 15 BUN 39 H Creatinine 3.76 H Estim Creat Clear Calc 19.7 Estimated GFR 14 POC Glucose 139 H 248 H Random Glucose 132 H Estimat Average Glucose Hemoglobin A1c % Calcium 9.2 D Magnesium 2.1 Urine Color Urine Appearance Urine pH Ur Specific [place] Urine Protein Urine Glucose (UA) Urine Ketones Urine Blood Urine Nitrite Ur Leukocyte Esterase Urine RBC Urine WBC Ur Squamous Epith Cells Urine Bacteria Hyaline Casts Procedures Date of Service Date of Service: 03/21/23 Assessment & Plan Assessment and plan (1) End-stage renal disease (ESRD): Status: Inactive (2) Diabetic foot: Status: Acute (3) Anemia: Status: Inactive Plan known ESRD on HD t-t-s Missed HD Rx - Volume overload nephrogenic anemia REC HD To continue today HD MWF renal diet phosphate binders VIPUL Low salt diet Low K diet Fluid restriction Vital Signs: Vital Signs: Last Vital Signs Temp 96.8 F 03/21/23 07:08 Pulse 72 03/21/23 07:08 Resp 20 03/21/23 07:08 BP 154/81 H 03/21/23 07:08 Pulse Ox 99 03/21/23 07:08 O2 Del Method Nasal Cannula 03/21/23 07:08 O2 Flow Rate 4 03/21/23 07:08 Oxygen Flow Rate 4 03/20/23 16:18 BMI result Body Mass Index 24.9 Constitutional : Awake, interactive Neck : Normal inspection, Supple Eyes: Legally blind Cardiovascular : RRR, elevated? JVP, trace lower extremity edema Respiratory : fair bilateral air entry,? basal fine crackles, no wheezes or rhonchi Gastrointestinal:? soft, lax, Normal bowel sounds, Non tender Skin : Warm, Dry. 1.5cmx1.2cm shallow ulceration planatar aspect left midfoot without surrounding erythema or purulent drainage Neurological : Alert & oriented x3, No focal deficit Objective Data Active Medications Acetaminophen (Acetaminophen 325 Mg Tablet) 650 mg PO Q6H PRN PRN Reason: Pain, Mild (Pain Scale 1-3) Aspirin (Aspirin Enteric Coated 81 Mg Tablet.) 81 mg PO DAILY [facility] Last Admin: 03/21/23 08:44 Dose: 81 mg Documented By: RAFAEL Carvedilol (Carvedilol 12.5 Mg Tablet) 12.5 mg PO BID [facility]; Protocol Last Admin: 03/21/23 08:43 Dose: 12.5 mg Documented By: RAFAEL Clonidine HCl (Clonidine Hcl 0.2 Mg Tablet) 0.2 mg PO TID [facility]; Protocol Last Admin: 03/21/23 08:44 Dose: 0.2 mg Documented By: RAFAEL Dextrose (Dextrose 50 % 25 Gm/50 Ml Syringe) 25 gm IVPUSH Q15M PRN; Protocol PRN Reason: per Hypoglycemia Standing Ord. Glucose (Glucose Gel 15 Gm Gel..Gram.) 15 gm PO Q15M PRN; Protocol PRN Reason: per Hypoglycemia Standing Ord. Heparin Sodium (Porcine) (Heparin Sodium,Porcine 5,000 Unit/Ml Vial) 5,000 unit SUBCUT Q12H [facility] Last Admin: 03/21/23 08:59 Dose: Not Given Documented By: RAFAEL Non-Admin Reason: Patient Refused Hydralazine HCl (Hydralazine Hcl 25 Mg Tablet) 75 mg PO TID [facility]; Protocol Last Admin: 03/21/23 08:46 Dose: Not Given Documented By: RAFAEL Non-Admin Reason: Patient Refused Hydralazine HCl (Hydralazine Hcl 20 Mg/Ml Vial) 10 mg IVPUSH Q4H PRN; Protocol PRN Reason: SBP > 180 Last Admin: 03/21/23 06:30 Dose: 10 mg Documented By: MAI Hydromorphone HCl (Hydromorphone Hcl 0.5 Mg/0.5 Ml Syringe) 0.5 mg IVPUSH Q6H PRN; Protocol PRN Reason: Pain, Severe (Pain Scale 7-10) Insulin Human Lispro (Insulin Lispro 100 Unit/Ml 3 Ml Vial) 0 unit SUBCUT QIDACHS [facility]; Protocol Last Admin: 03/21/23 08:45 Dose: Not Given Documented By: RAFAEL Non-Admin Reason: No Insulin Coverage Isosorbide Mononitrate (Isosorbide Mononitrate 30 Mg Tab.Er.24h) 30 mg PO DAILY [facility]; Protocol Last Admin: 03/21/23 08:44 Dose: 30 mg Documented By: RAFAEL Lidocaine (Lidocaine 4 % Patch Adh..Patch) 1 patch TRANSDERMA DAILY [facility] Last Admin: 03/21/23 08:58 Dose: Not Given Documented By: RAFAEL Non-Admin Reason: Patient Refused Lorazepam (Lorazepam 0.5 Mg Tablet) 0.5 mg PO BID PRN PRN Reason: Anxiety Losartan Potassium (Losartan Potassium 25 Mg Tablet) 25 mg PO DAILY [facility]; Protocol Last Admin: 03/21/23 08:44 Dose: 25 mg Documented By: RAFAEL Metoclopramide HCl (Metoclopramide Hcl 10 Mg/2 Ml Vial) 5 mg IVPUSH Q4H PRN PRN Reason: Nausea and Vomiting Last Admin: 03/21/23 00:44 Dose: 5 mg Documented By: MAI Nifedipine (Nifedipine Er 60 Mg Tab.Er.24) 60 mg PO DAILY [facility]; Protocol Last Admin: 03/21/23 08:44 Dose: 60 mg Documented By: RAAFEL Ondansetron HCl (Ondansetron Hcl 4 Mg/2 Ml Vial) 4 mg IVPUSH Q8H PRN PRN Reason: Nausea and Vomiting Last Admin: 03/20/23 22:32 Dose: 4 mg Documented By: AMAIRANI Oxycodone HCl (Oxycodone Hcl Immed Release 5 Mg Tablet) 5 mg PO Q6H PRN PRN Reason: severe pain Senna (Sennosides 8.6 Mg Tablet) 17.2 mg PO BEDTIME PRN PRN Reason: Constipation Sevelamer Carbonate (Sevelamer Carbonate Tablet 800 Mg Tablet) 800 mg PO TIDWM [facility] Last Admin: 03/21/23 08:43 Dose: 800 mg Documented By: RAFAEL Sodium Bicarbonate (Sodium Bicarbonate 650 Mg Tablet) 650 mg PO TID [facility] Last Admin: 03/21/23 08:44 Dose: 650 mg Documented By: RAFAEL Sodium Chloride (0.9 % Sodium Chloride Flush 3 Ml Syringe) 3 ml IVFLUSH QSHIFT [facility] Last Admin: 03/21/23 08:59 Dose: Not Given Documented By: RAFAEL Non-Admin Reason: Previously Administered Vitamin D (Cholecalciferol (Vitamin D3) 25 Mcg Tablet) 50 mcg PO DAILY [facility] Last Admin: 03/21/23 08:44 Dose: 50 mcg Documented By: RAFAEL Labs 03/20/23 16:16 03/20/23 16:16 Labs: Laboratory Results - last 24 hr 03/20/23 03/20/23 03/20/23 16:16 16:32 22:01 MCV 97.1 MCH 31.2 MCHC 32.1 RDW 15.7 Plt Count 170 MPV 12.0 Immature Gran % (Auto) 0.4 Neut % (Auto) 75.0 H Lymph % (Auto) 12.6 L [place] % (Auto) 9.0 Eos % (Auto) 2.2 Baso % (Auto) 0.8 Lymph # (Auto) 0.6 L [place] # (Auto) 0.5 Eos # (Auto) 0.1 Baso # (Auto) 0.0 Abs Immat Gran (auto) 0.02 Absolute Neuts (auto) 3.8 Absolute Nucleated RBC 0.000 Nucleated RBC % (auto) 0.0 PT 14.3 H INR 1.2 H APTT 31.9 VBG pH 7.28 L VBG pCO2 28 VBG pO2 56 VBG HCO3 13 L VBG O2 Saturation 82.0 VBG Base Excess -11.5 Anion Gap 17 Estim Creat Clear Calc 9.5 Estimated GFR 6 POC Glucose Random Glucose 191 H Estimat Average Glucose 123 Hemoglobin A1c % 5.9 Calcium 8.1 L D Total Bilirubin 0.9 AST 17 ALT 15 Alkaline Phosphatase 151 H Total Protein 7.7 Albumin 3.3 L Urine Color Urine Appearance Urine pH Ur Specific [place] Urine Protein Urine Glucose (UA) Urine Ketones Urine Blood Urine Nitrite Ur Leukocyte Esterase Urine RBC Urine WBC Ur Squamous Epith Cells Urine Bacteria Hyaline Casts COVID-19 (CARO) Negative COVID-19 Clin Com See Note Influenza Type A ([place]) Negative Influenza Type B ([facility]ILTON) Negative Influenza A & B Note See Note 03/21/23 03/21/23 07:08 09:16 MCV MCH MCHC RDW Plt Count MPV Immature Gran % (Auto) Neut % (Auto) Lymph % (Auto) [place] % (Auto) Eos % (Auto) Baso % (Auto) Lymph # (Auto) [place] # (Auto) Eos # (Auto) Baso # (Auto) Abs Immat Gran (auto) Absolute Neuts (auto) Absolute Nucleated RBC Nucleated RBC % (auto) PT INR APTT VBG pH VBG pCO2 VBG pO2 VBG HCO3 VBG O2 Saturation VBG Base Excess Anion Gap Estim Creat Clear Calc Estimated GFR POC Glucose 151 H Random Glucose Estimat Average Glucose Hemoglobin A1c % Calcium Total Bilirubin AST ALT Alkaline Phosphatase Total Protein Albumin Urine Color Yellow Urine Appearance Clear Urine pH 6.0 Ur Specific [place] 1.015 Urine Protein 300 (3+) H Urine Glucose (UA) 250 H Urine Ketones Negative Urine Blood Trace H Urine Nitrite Negative Ur Leukocyte Esterase Negative Urine RBC 0-2 Urine WBC 0-5 Ur Squamous Epith Cells 3-5 Urine Bacteria None Seen Hyaline Casts 0-2 COVID-19 ([facility]O) COVID-19 Clin Com Influenza Type A ([place]ILTON) Influenza Type B (MILTON) Influenza A & B Note Time Spent With Patient Time: Total time managing care of this patient today ____ minutes. Progress Note: Quality Stroke Does the patient have a stroke diagnosis?: No
[2023-03-22] MEDS: HYDROmorphone HCl 0.5 MG/0.5 ML SYRINGE IVPUSH ×2 (05:22→11:30)
[2023-03-22 05:38] VITALS: BP 112/55; PULSE 69; RESP 18; TEMP 36.1; O2SAT 99
[2023-03-22 07:34] VITALS: BP 142/77; PULSE 64; RESP 20; TEMP 36; O2SAT 97
--- NOTE | 2023-03-22 07:47 | PC.NURSE ---
received report from overnight RN. Tamping Machine Operator went into room to do an assessment. Patient reported not wanting to take her medications until her next dose of Dilaudid is due around 11:22. Safety precautions in place. call moore within reach.
[2023-03-22 08:08] LABS: Glucose, Whole Blood 154 mg/dL (60-115)
[2023-03-22] MEDS: 0.9 % Sodium Chloride Flush 3 ML SYRINGE IVFLUSH (11:31)
[2023-03-22] MEDS: hydrALAZINE HCl 25 MG TABLET 75 MG PO (11:31)
[2023-03-22] MEDS: Aspirin Enteric Coated 81 MG TABLET.DR PO (11:31)
[2023-03-22] MEDS: cloNIDine HCL 0.2 MG TABLET PO (11:32)
[2023-03-22] MEDS: Isosorbide Mononitrate 30 MG TAB.ER.24H PO (11:32)
[2023-03-22] MEDS: carvediloL 12.5 MG TABLET PO (11:32)
[2023-03-22] MEDS: Losartan Potassium 25 MG TABLET PO (11:34)
--- NOTE | 2023-03-22 11:39 | P.DS_ITS ---
DS: Providers Provider Date of Service: 03/22/23 Date of admission: 03/20/23 21:20 Primary care physician: Abdon Beard MD Consults: 03/20/23 21:20 Consult to Nephrology Routine Consulting Provider: Benedicto Trevino Reason for consultation: missed dialysis, volume overload 03/20/23 21:44 Consult to Wound Care Routine Reason for consultation: rn- diabetic foot ulcer L plantar surface DS: Diagnosis Discharge Diagnosis (1) End-stage renal disease (ESRD): Status: Inactive (2) Diabetic foot: Status: Acute (3) Anemia: Status: Inactive (4) Volume overload: Status: Acute (5) Accelerated essential hypertension: Status: Acute (6) HFrEF (heart failure with reduced ejection fraction): Status: Acute (7) ESRD on dialysis: Status: Acute (8) Metabolic acidosis: Status: Acute DS: Summary Hospital Course Hospital Course: Admission note HPI 32-year-old female with history of ESRD on dialysis TTHSa (those noncompliant with sunday as she does not like to leave the house on sunday), [id number] 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 Her last dialysis session was 4 days ago. She follows with Dr. Trevino in Nephrology. She was discharged on 03/14 and was discharged on 5 days of doxycycline. Denies fevers, chills, purulent drainage. Her sister has been changing dressings. Patient with hypertensive urgency with blood pressure up to 222/137 with improvement to 167/117 on admission following 10 mg IV labetalol, 0.3 mg clonidine, 10 mg hydralazine. Vitals otherwise stable. Hematology studies unremarkable, consistent with baseline. Creatinine 7.74, BUN 89. Electrolyte levels normal except for CO2 14. Glucose 143. Venous duplex of the right lower extremity negative for DVT. Chest x-ray without any acute cardiopulmonary abnormality but shows mildly enlarged cardiac silhouette similar to prior imaging. Hospital course #Volume overload/dyspnea in ESRD HD patient due to noncompliance with HD schedule. Improved with dialysis arranged by nephrology team who recommended her to continue sevelamar, low-sodium diet and to follow her HD schedule. #Acute on chronic metabolic acidosis CO2 14 on admission. Improved with usage of 650 mg sodium bicarbonate t.i.d. p.o. to keep it on discharge. # hypertensive urgency Significantly elevated SBP readings of 230s on admission. improved with IV and PO medications. resumed nifedipine, losartan, isosorbide, hydralazine, carvedilol. Increase Losartan, Carvedilol and Hydralazine at time of discharge with plan to follow with nephrology for close monitoring of BP. # chronic diabetic left foot ulcer MRI negative for osteomyelitis during last admission. Completed course of doxycycline. wound appears clean without evidence of acute infection # chronic hypoxemic respiratory failure On 4 L supplemental O2, home dose. Plan: Increase Carvedilol to 25 mg twice daily Increase Losartan to 50 mg daily Increase Hydralazine to 100mg tid Monitor BP at home and report readings to your general teller. follow with dialysis outpatient as scheduled Time Attestation Discharge coordination time: Greater than 30 minutes Quality: Safe Use of Opioids Does Pt have an Active Cancer Diagnosis on the Problem List?: No Quality: Stroke Does the patient have a stroke diagnosis?: No Physical Exam Vital Signs: Vital Signs: Last Vital Signs Temp 96.8 F 03/22/23 07:34 Pulse 64 03/22/23 07:34 Resp 20 03/22/23 07:34 BP 142/77 H 03/22/23 07:34 Pulse Ox 97 03/22/23 07:34 O2 Del Method Nasal Cannula 03/22/23 07:34 O2 Flow Rate 2 03/22/23 07:34 Oxygen Flow Rate 4 03/20/23 16:18 BMI result Body Mass Index 24.9 Const: Other: Constitutional : Awake, interactive Neck : Normal inspection, Supple Eyes: Legally blind Cardiovascular : RRR, elevated? JVP, trace lower extremity edema Respiratory : fair bilateral air entry,? basal fine crackles, no wheezes or rhonchi Gastrointestinal:? soft, lax, Normal bowel sounds, Non tender Skin : Warm, Dry. 1.5cmx1.2cm shallow ulceration planatar aspect left midfoot without surrounding erythema or purulent drainage Neurological : Alert & oriented x3, No focal deficit DS: Data Data Completed and Pending Completed studies during hospitalization [Text1]: Procedures Detachment at Right Foot, Partial 1st Ray, Open Approach (03/01/20) Detachment at Right Foot, Partial 2nd Ray, Open Approach (03/01/20) Detachment at Right Foot, Partial 3rd Ray, Open Approach (03/01/20) Detachment at Right Foot, Partial 4th Ray, Open Approach (03/01/20) Detachment at Right Foot, Partial 5th Ray, Open Approach (03/01/20) Drainage of Right Pleural Cavity, Percutaneous Approach (01/14/21) Excision of Left Foot Skin, External Approach (03/10/23) Excision of Stomach, Pylorus, Via Natural or Artificial Opening Endoscopic, Diagnostic (08/27/22) Fluoroscopy of Superior Vena Cava, Guidance (08/14/22) Insertion of Infusion Device into Right Atrium, Percutaneous Approach (08/14/22) Insertion of Infusion Device into Superior Vena Cava, Percutaneous Approach (01/14/21) Insertion of Tunneled Vascular Access Device into Chest Subcutaneous Tissue and Fascia, Percutaneous Approach (08/14/22) Performance of Urinary Filtration, Intermittent, Less than 6 Hours Per Day (03/10/23) Removal of Infusion Device from Great Vessel, External Approach (01/14/21) Transfusion of Nonautologous Red Blood Cells into Peripheral Vein, Percutaneous Approach (04/22/22) Labs on day of discharge: Laboratory Results - last 24 hr 03/21/23 03/21/23 03/22/23 14:05 21:34 08:03 WBC 3.7 L RBC 3.11 L Hgb 9.6 L Hct 28.8 L MCV 92.6 MCH 30.9 MCHC 33.3 RDW 15.5 Plt Count 165 MPV 12.1 Immature Gran % (Auto) 1.6 H Neut % (Auto) 78.3 H Lymph % (Auto) 10.1 L [place] % (Auto) 6.8 Eos % (Auto) 2.7 Baso % (Auto) 0.5 Lymph # (Auto) 0.4 L [place] # (Auto) 0.3 Eos # (Auto) 0.1 Baso # (Auto) 0.0 Abs Immat Gran (auto) 0.06 H Absolute Neuts (auto) 2.9 Absolute Nucleated RBC 0.000 Nucleated RBC % (auto) 0.0 Sodium 135 Potassium 3.4 D Chloride 102 Carbon Dioxide 22 Anion Gap 15 BUN 39 H Creatinine 3.76 H Estim Creat Clear Calc 19.7 Estimated GFR 14 POC Glucose 248 H 154 H Random Glucose 132 H Calcium 9.2 D Magnesium 2.1 Imaging Chest x-ray: Radiologist's impression: ITS Impressions Chest X-Ray 03/20/23 17:00 IMPRESSION: 1. Clear lungs. 2. Mildly enlarged cardiac silhouette unchanged from prior. Venous Duplex 03/20/23 17:26 IMPRESSION: No DVT demonstrated in the right lower extremity. Discharge Plan Discharge Anticipated Discharge Date/Time: 03/22/23 11:28 Patient Disposition: Home, Self-Care Discharge Diagnosis: Accelerated hypertension Referrals: Abdon Beard MD [Primary Care Provider] - 1 Week Discharge Medications: New sodium bicarbonate 650 mg Tablet 650 mg PO TID Qty: 90 0RF carvedilol 25 mg tablet 25 mg PO BID Qty: 60 0RF Rx Instructions: must administer with a meal/food losartan 50 mg tablet 50 mg PO DAILY Qty: 30 0RF hydralazine 100 mg tablet 100 mg PO TID Qty: 90 0RF Continued isosorbide mononitrate 30 mg tablet extended release 24 hr 30 mg PO DAILY nifedipine 60 mg tablet extended release 24hr 60 mg PO DAILY lidocaine 5 % adhesive patch,medicated 1 patch topical DAILY oxycodone 5 mg tablet 5 mg PO Q6H PRN (Reason: severe pain) doxycycline hyclate 100 mg tablet 100 mg PO BID Qty: 10 0RF (DME) off loading boot Kit See Rx Instructions .Route Qty: 1 0RF Rx Instructions: As directed aspirin 81 mg Tablet,Delayed Release (Dr/Ec) 81 mg PO DAILY Qty: 30 0RF sevelamer carbonate 800 mg tablet 800 mg PO TID cholecalciferol (vitamin D3) 50 mcg (2,000 unit) capsule 50 mcg PO DAILY acetaminophen 325 mg tablet 650 mg PO Q4H PRN (Reason: mild pain) Discontinued carvedilol 12.5 mg tablet 12.5 mg PO BID hydralazine 25 mg tablet 75 mg PO TID losartan 25 mg Tablet 25 mg PO DAILY Qty: 30 0RF Protocol: Hold for SBP< HOLD for SBP < : 90 Discharge Orders: Discharge Order (Routine); Ordered 03/22/23 Ordered By: Cheyenne Sears Diet: Low salt diet Activity on Discharge: As tolerated Stand Alone Forms: Patient Portal Discharge page Care Plan Goals: Read below Health Concerns: Read below Plan of Treatment: Read below Assessment: You were treated for elevated blood pressure readings with IV and oral medications with good response. Increase Carvedilol to 25 mg twice daily Increase Losartan to 50 mg daily Increase Hydralazine to 100mg tid Monitor BP at home and report readings to your general teller. follow with dialysis outpatient as scheduled
--- NOTE | 2023-03-22 11:39 | MHC.CM.PN ---
Pt. has been medically cleared for DC, she will contact family to come pick her up and she will resume her prior home care services.
--- NOTE | 2023-03-22 13:01 | MHC.CM.PN ---
Pt will go home via ambulance, family was not able to transport.
== END 2023-03-22 14:48 | disposition home or self-care (01) | DRG 640 ==
LOC: HO.ED 19:52 → HO.EDOVER 21:32 → HO.S3 22:20 → HO.IMC 22:48
PROVIDERS: Hospitalist; Physician Assistant; Admitting Provider Physician Assistant; Emergency Provider Internal Medicine; PCP Internal Medicine; Visit Provider Student in an Organized Health Care Education/Training Program
DX: E87.70 Fluid overload, unspecified (principal); N18.6 End stage renal disease; I12.0 Hypertensive chronic kidney disease with stage 5 chronic kidney disease or end stage renal disease; I50.22 Chronic systolic (congestive) heart failure; J96.11 Chronic respiratory failure with hypoxia; L97.429 Non-pressure chronic ulcer of left heel and midfoot with unspecified severity; I16.0 Hypertensive urgency; E11.621 Type 2 diabetes mellitus with foot ulcer; E11.22 Type 2 diabetes mellitus with diabetic chronic kidney disease; E11.42 Type 2 diabetes mellitus with diabetic polyneuropathy; Z99.2 Dependence on renal dialysis; M79.89 Other specified soft tissue disorders; H54.8 Legal blindness, as defined in USA; E87.21 Acute metabolic acidosis; Z99.81 Dependence on supplemental oxygen; E87.22 Chronic metabolic acidosis; Z91.158 Patient's noncompliance with renal dialysis for other reason; Z20.822 Contact with and (suspected) exposure to COVID-19; Z79.82 Long term (current) use of aspirin; Z79.899 Other long term (current) drug therapy
CPT/HCPCS: 36415; 71045; 80048; 80053; 81001; 82803; 82947; 83036; 83735; 85025; 85610; 85730; 87502; 87635; 90999; 93005; 93971; 99222; 99285; J0360; J1170; J1644; J1920; J2405; J2765

== ENCOUNTER → 2023-03-20 16:02 | Outpatient (BNV) | payer OTHER, SELFPAY | PROVIDERS: Admitting Provider Physician Assistant; Emergency Provider Internal Medicine; PCP Internal Medicine; Visit Provider Internal Medicine Cardiovascular Disease | DX: R00.0 Tachycardia, unspecified (principal) | CPT/HCPCS: 93010 ==

== ENCOUNTER → 2023-03-20 21:20 | Outpatient (BNV) | payer OTHER, SELFPAY | PROVIDERS: Admitting Provider Physician Assistant; Emergency Provider Internal Medicine; Visit Provider Physician Assistant | DX: I13.2 Hypertensive heart and chronic kidney disease with heart failure and with stage 5 chronic kidney disease, or end stage renal disease (principal); I50.20 Unspecified systolic (congestive) heart failure; E11.22 Type 2 diabetes mellitus with diabetic chronic kidney disease; N18.6 End stage renal disease; Z99.2 Dependence on renal dialysis; D63.1 Anemia in chronic kidney disease; E87.70 Fluid overload, unspecified; E87.20 Acidosis, unspecified | CPT/HCPCS: 99223; 99233; 99239 ==

== ENCOUNTER 2023-03-24 16:03 | Inpatient (IN) | payer OTHER, SELFPAY ==
--- NOTE | ~2023-03-24 | CT_ITS ---
EXAMINATION: CT CHEST WITHOUT CONTRAST CLINICAL INFORMATION: Pain following fall COMPARISON: 07/24/2022 TECHNIQUE: Multidetector volumetric CT imaging of the chest was done. Axial MIP volume rendering provided. Sagittal and coronal reformatted images were obtained. This CT examination was performed using dose optimization techniques as appropriate, variously including the following: *Automated exposure control *Adjustment of mA and/or kV according to patient size (this includes techniques or standardized protocols for targeted exams where dose is matched to indication/reason for exam; i.e. extremities or head) *Use of iterative reconstruction technique DLP: 318.9 mGy-cm FINDINGS: MEDIA PRODUCTION OPERATOR: There is an infusion catheter present with the tip over the atriocaval junction LUNGS: Lungs are clear with bibasilar atelectasis adjacent to the moderate sized pleural effusion on the right and atelectasis adjacent to the trace of pleural effusion on the left. There is 0.2 cm nodule in the right middle lobe seen on image. MEDIASTINUM 62 series 8. There is 0.3 cm right lower lobe nodules seen on image 81 series 8.: There is cardiomegaly and small pericardial effusion. There is dialysis catheter and the aorta at the cavoatrial junction. CORONARY ARTERY CALCIFICATION: Mild AXILLA: No lymphadenopathy. UPPER ABDOMEN: Unremarkable. OSSEOUS STRUCTURES: Unremarkable. CT/CT chest wo IV con IMPRESSION: 1. Moderate sized pleural effusion on the right and trace of pleural effusion on the left with adjacent atelectasis. 2. Cardiomegaly and small pericardial effusion. Fleischner guidelines were followed.
--- NOTE | ~2023-03-24 | CT_ITS ---
EXAMINATION: CT HEAD WITHOUT CONTRAST CT CERVICAL SPINE WITHOUT CONTRAST CLINICAL INFORMATION: Fall. Head strike. Pain. COMPARISON: Brain MRI from 01/29/2023. TECHNIQUE: Contiguous axial imaging was performed from the skull base to vertex without intravenous administration of contrast. Contiguous axial imaging was performed from the upper chest through the skull base without intravenous administration of contrast. Coronal and sagittal reformats were obtained at the acquisition workstation. This CT examination was performed using dose optimization techniques as appropriate, variously including the following: *Automated exposure control. *Adjustment of mA and/or kV according to patient size (this includes techniques or standardized protocols for targeted exams where dose is matched to indication/reason for exam; i.e. extremities or head). *Use of iterative reconstruction technique. DLP: 1328 mGy-cm FINDINGS: Head: There is no evidence of acute intracranial hemorrhage or edematous territorial infarction. Ventura-white matter differentiation is preserved. Few chronic nonspecific foci of hypoattenuation in the periventricular and deep white matter. The ventricles are normal in morphology and size. No evidence for obstructive hydrocephalus. No abnormal mass effect or midline shift. No extra-axial fluid collections. No acute soft tissue or osseous abnormalities. Mild mucosal thickening of the paranasal sinuses. The mastoid air cells and middle ear cavities are clear. Cervical Spine: Mildly motion degraded exam. There is a band of motion artifact with the C5 vertebra. The atlantooccipital and atlantoaxial articulations remain well aligned. Straightening of the normal cervical lordosis. Otherwise, there is anatomic alignment of the vertebral bodies and posterior elements. Congenital nonunion of the posterior arch of C1. No overt evidence of acute fracture or subluxation. The vertebral body heights are maintained. Mild degenerative disc disease from C4-C6. There is no prevertebral soft tissue swelling. The thyroid gland and remaining cervical soft tissues are within normal limits. Right-sided tunneled internal jugular central venous catheter. The lung apices demonstrate no abnormalities. CT/CT cervical spine wo IV con IMPRESSION: 1. No evidence of acute intracranial hemorrhage or edematous territorial infarction. 2. Mildly motion degraded exam of the cervical spine. Within this limitation, there is no evidence of acute fracture or traumatic subluxation of the cervical spine.
[2023-03-24 16:21] VITALS: BP 107/94; BP 175/90; PULSE 82; PULSE 95; RESP 19; TEMP 36.4; O2SAT 100; BMI 29.0
--- NOTE | 2023-03-24 18:43 | ED_ITS ---
HPI - General Adult General Chief complaint: General Medical Stated complaint: SOB, CP, Dialysis, discharged for same on Time Seen by Provider: 03/24/23 18:31 Source: patient and EMS Mode of arrival: EMS Limitations: no limitations History of Present Illness HPI narrative: Patient is a 32 year old assigned female at with a history of CKD requiring dialysis, HTN, and heart failure chronically on 4 liters of oxygen via nasal canula, presenting to the emergency department today with chest pain, shortness of breath, and left sided pain after a fall. Patient states that she last dialyzed 2 days ago here. Patient states that this morning she attempted to walk, got off balance, and fell. Patient states that she did not strike her head but she landed on her left side is continuing to have pain. Patient states that she is also having nausea, vomiting, and diarrhea. Patient denies any dizziness, lightheadedness, fever, chills, blurry vision, double vision, loss of vision, back pain, night sweats, blood in her stool, syncope or a near syncopal episode, bowel incontinence, bladder incontinence, bowel retention, bladder retention, or any other complaints at this time. Onset (ago): hour(s) Relieving factors: none Exacerbating factors: none Associated symptoms: chest pain, nausea/vomiting and shortness of breath Treatments prior to arrival: none Related Data Home Medications Medication Instructions Recorded Confirmed isosorbide mononitrate 30 mg 30 mg PO DAILY 03/11/23 03/20/23 tablet,extended release 24 hr lidocaine 5 % topical patch 1 patch topical DAILY 03/11/23 03/20/23 nifedipine 60 mg tablet,extended 60 mg PO DAILY 03/11/23 03/20/23 release 24 hr oxycodone 5 mg tablet 5 mg PO Q6H PRN severe pain 03/11/23 03/20/23 acetaminophen 325 mg tablet 650 mg PO Q4H PRN mild pain 03/20/23 03/20/23 cholecalciferol (vitamin D3) 50 50 mcg PO DAILY 03/20/23 03/20/23 mcg (2,000 unit) capsule sevelamer carbonate 800 mg tablet 800 mg PO TID 03/20/23 03/20/23 Previous Rx's Medication Instructions Recorded aspirin 81 mg tablet,delayed 81 mg PO DAILY #30 tabs 01/29/23 release doxycycline hyclate 100 mg tablet 100 mg PO BID #10 tabs 03/14/23 off loading boot #1 ea 03/14/23 carvedilol 25 mg tablet 25 mg PO BID #60 tabs 03/22/23 hydralazine 100 mg tablet 100 mg PO TID #90 tabs 03/22/23 losartan 50 mg tablet 50 mg PO DAILY #30 tabs 03/22/23 sodium bicarbonate 650 mg tablet 650 mg PO TID #90 tabs 03/22/23 Allergies Allergy/AdvReac Type Severity Reaction Status Date / Time morphine [MORPHINE] Allergy Intermediate Itching Verified 03/24/23 16:53 azithromycin [From Zithromax] Allergy Hives Verified 03/24/23 16:53 gabapentin Allergy Facial Verified 03/24/23 16:53 Swelling tramadol Allergy Facial Verified 03/24/23 16:53 Swelling Review of Systems 2 Constitutional: Constitutional: Reports no additional constitutional complaints, Reports body ache(s), Denies chills, Denies fever(s) and Denies night sweats Eyes: Eyes: Reports no additional eye complaints, Denies blurry vision, Denies change in vision, Denies diplopia, Denies eye discharge, Denies loss of vision and Denies eye pain ENT: Denies dizziness Cardiovascular: Cardiovascular: Reports no additional cardiovascular complaints, Reports chest pain, Denies lightheadedness, Denies Loss of Consciousness and Reports dyspnea Respiratory: Respiratory: Reports no additional respiratory complaints and Reports dyspnea Gastrointestinal: Gastrointestinal: Reports no additional gastrointestinal complaints, Denies abdominal pain, Denies melena, Denies hematochezia, Denies change in bowel habits, Denies change in stool character, Reports diarrhea, Reports nausea and Reports vomiting Genitourinary: Genitourinary: Denies hematuria, Denies urinary frequency, Denies dysuria, Denies urinary incontinence, Denies urinary hesitancy and Denies urinary urgency Musculoskeletal: Musculoskeletal: Reports no additional musculoskeletal complaints, Denies numbness and Denies tingling Neurologic: Denies dizziness, Denies loss of vision, Denies numbness and Denies tingling Psychiatric: Psychiatric: Reports no additional psychiatric complaints Endocrine: Endocrine: Reports no additional endocrine complaints Hematologic/Lymphatic: Hematologic/Lymphatic: Reports no additional hematologic/lymphatic complaints Allergic/Immunologic: Allergic/Immunologic: Reports no additional allergic/immunologic complaints PMFSH Past Medical History Attestation statement: The following information was validated with the patient. Source: old records reviewed and nursing notes reviewed Medical History (Updated 03/25/23 @ 00:30 by JOVON Rowe) Hyperkalemia Metabolic acidosis End-stage renal disease (ESRD) HFrEF (heart failure with reduced ejection fraction) ESRD on dialysis Migraine Diabetic foot ulcer associated with type 2 diabetes mellitus Chronic pain Gastroparesis Non-compliance with renal dialysis Hypertension Hypertensive emergency Diabetes ESRD needing dialysis Cardiomyopathy delivery delivered Anemia in chronic kidney disease (CKD) CKD (chronic kidney disease) Headache, migraine Abnormal finding on echocardiogram Elevated troponin Chest pain Acute worsening of stage 3 chronic kidney disease Generalized edema Sepsis Cellulitis Pleural effusion CHF (congestive heart failure) (~06/07/22) Tachycardia Atypical chest pain Bone infection PAD (peripheral artery disease) Severe anemia Cellulitis and abscess of foot DM foot ulcer Osteomyelitis test positive test positive Asthma Depression with anxiety Diabetic retinopathy Type 2 diabetes mellitus with hyperglycemia, with long-term current use of insulin Blind right eye Diabetes Back pain Surgical History 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 Family History Family History Mother Coronary artery disease Myocardial infarction Stroke Diabetes mellitus Father Myocardial infarction Social History Social History Household Members: Family Household Members Other:: Sister, [id number], nephew Housing: Apartment Do you presently have visiting nurse or other home services: No Unable to assess alcohol history related to: Unknown Alcohol intake: never Comment: refuses camera Patient Tobacco Use Status: Never used Tobacco Smoked in Last 30 Days: No e-Cigarette/Vaping Use: Never Used Second Hand Smoke Exposure: No Use of substances other than those prescribed or required for medical reasons: No Advance Directives: Yes Advance Directives on File: Yes Advance Directives Date on File: 03/08/20 Patient : No service: No Current occupational status: unemployed and disabled Gender identity: Female Physical Exam ED Vital Signs: Vital Signs - 24 hr 03/24/23 16:21 03/24/23 19:31 03/24/23 21:07 Temperature 97.6 F Pulse Rate 82 77 Respiratory Rate 19 16 14 Blood Pressure 107/94 H 191/101 H Pulse Oximetry 100 Oxygen Delivery Method Nasal Cannula Oxygen Flow Rate 03/24/23 22:02 Temperature 97.6 F Pulse Rate 74 Respiratory Rate 17 Blood Pressure 174/104 H Pulse Oximetry 99 Oxygen Delivery Method Nasal Cannula Oxygen Flow Rate 4 BMI result Body Mass Index 29.0 Const General: cooperative, no acute distress, alert and awake Nutritional Appearance: well nourished Orientation/consciousness: patient oriented x3 Limitations: no limitations HENMT Head: Yes normal to inspection and Yes atraumatic Ears: hearing grossly normal bilaterally and external ears normal General nose exam: Normal external nose present, no nasal discharge noted and no epistaxis Face and sinus: Yes normal facial exam, No abrasion and No laceration Mouth: Normal oral and palatal mucosa present, no drooling and no muffled voice Eyes Eyelids: Yes eyelids normal Neck Neck: Yes normal visual inspection, Yes full ROM and Yes no lymphadenopathy Chest Chest palpation & inspection: normal inspection of the chest Resp Effort & Inspection: normal respiratory effort and able to speak in complete sentences Auscultation: clear to auscultation bilaterally Cardio Rate: regular rate Rhythm: regular rhythm GI Inspection: Yes normal to inspection Neuro General: patient oriented x3 and moves all extremities Cognition (Neuro): normal cognition Motor exam (neuro): 5/5 motor strength present throughout Sensory Exam: Normal double simultaneous stimulation for sensation Coordination: [id number] test normal Extrem General: Yes normal to inspection, Yes full ROM and Yes capillary refill normal Psych Appearance: grossly normal Mental Status: mental status grossly normal Affect: normal affect Attitude: cooperative Thought process: Normal thought process present Thought content: Normal thought content present Insight: Good insight present (Psych) Medications Administered Discontinued Medications Generic Name Dose Route Start Last Admin Trade Name Freq PRN Reason Stop Dose Admin Hydromorphone HCl 2 mg 03/24/23 19:27 03/24/23 19:31 Hydromorphone Hcl 2 Mg/Ml Vial IVPUSH 03/24/23 19:28 2 mg ONCE ONE Administration Protocol Ondansetron HCl 4 mg 03/24/23 18:49 03/24/23 19:30 Ondansetron Hcl 4 Mg/2 Ml Vial IVPUSH 03/24/23 18:50 4 mg ONCE ONE Administration Sodium Zirconium Cyclosilicate 10 gm 03/24/23 21:48 03/24/23 22:24 Sodium Zirconium Cyclosilicate 10 Gm Powd.Pack PO 03/24/23 21:49 Not Given ONCE ONE Medical Decision Making Medical Decision Making [facility] Narrative: Patient is a 32 year old assigned female at with a history of CKD requiring dialysis, HTN, and heart failure chronically on 4 liters of oxygen presenting to the emergency department today with increased SOB, chest pain, and left side pain after a fall. Patient's physical exam showed an individual on 4 liters of oxygen with a blind right eye. Patient's blood work showed multiple abnormalities including an elevated potassium, BUN, and CR. Patient's CT chest showed a right sided pleural effusion, a trace left sided pleural effusion, and a small pericardial effusion. I spoke with the patient's animal researcher who recommended lokelma and stated that he would be initiating emergent dialysis. I spoke to the hospitalist who agreed to admission. I explained my physical exam findings as well as all test results to the patient. I answered all questions asked by the patient. Patient verbalized agreement and understanding with this treatment plan and admission. Differential Diagnosis Differential Diagnoses: The differential diagnosis associated with the presentation includes Kidney failure Fall Fluid overload Pleural effusion Admission/Observation Consideration of admission/observation: Escalation of care including admission/observation considered Patient admitted. Consult Healthcare Provider Management of the patient was discussed with: Hospitalist (agreed to admission.) and Ophthalmic Assistant (spoke with the animal researcher as noted in the MDM Rationale portion of this note. ) Lab Data [facility] Lab Attestation statement: I reviewed the patient's lab results. My interpretation of these results are in the MDM Rationale portion of this note. 03/24/23 19:22 03/24/23 19:22 Labs: Lab Results 03/24/23 Range/Units 19:22 WBC 6.8 (4.8-10.8) X10*3/uL RBC 3.10 L (4.20-5.50) X10*6/uL Hgb 9.5 L (12.0-16.0) g/dl Hct 29.7 L (37.0-47.0) % MCV 95.8 (80.0-98.0) fL MCH 30.6 (27.0-33.0) pg MCHC 32.0 (31.0-35.0) g/dl RDW 15.9 (11.0-16.0) % Plt Count 187 (160-400) X10*3/uL MPV 12.2 (9.4-12.3) fL Immature Gran % (Auto) 0.1 (0.0-0.4) % Neut % (Auto) 81.2 H (45-73) % Lymph % (Auto) 8.1 L (20-40) % [place] % (Auto) 9.2 (2-11) % Eos % (Auto) 1.0 (0-4) % Baso % (Auto) 0.4 (0-2) % Lymph # (Auto) 0.6 L (1.2-4.9) X10*3/uL [place] # (Auto) 0.6 (0.1-1.2) X10*3/uL Eos # (Auto) 0.1 (0.0-0.4) X10*3/uL Baso # (Auto) 0.0 (0.0-0.2) X10*3/uL Abs Immat Gran (auto) 0.01 (0.00-0.03) X10*3/uL Absolute Neuts (auto) 5.5 (2.0-8.3) x10*3/uL Absolute Nucleated RBC 0.000 (0.0-0.012) X10*3/uL Nucleated RBC % (auto) 0.0 (0.0-0.2) /100WBC Sodium 133 L (135-145) mmol/L Potassium 6.2 H* D (3.3-5.1) mmol/L Chloride 106 (96-108) mmol/L Carbon Dioxide 15 L (22-29) mmol/L Anion Gap 18 (12-20) BUN 83 H (9-16) mg/dL Creatinine 7.17 H* (0.5-1.4) mg/dL Estim Creat Clear Calc 11.9 Estimated GFR 7 Random Glucose 131 H (60-115) mg/dL Calcium 7.9 L D (8.4-10.2) mg/dL Magnesium 2.5 (1.6-2.6) mg/dL Total Bilirubin 0.9 (0.0-1.0) mg/dL AST 33 H (5-31) U/L ALT 18 (0-31) U/L Alkaline Phosphatase 169 H (39-117) U/L Total Protein 7.9 (6.5-8.0) g/dL Albumin 3.2 L (3.5-5.0) g/dL Beta HCG, Quant < 2 mIU/mL COVID-19 ([facility]O) Negative (Negative) COVID-19 Clin Com See Note Influenza Type A ([facility]) Negative (Negative) Influenza Type B ([facility]) Negative (Negative) Influenza A & B Note See Note Independent Interpretation I performed an independent interpretation of an: EKG and CT Scan Interpretation: My interpretation is in agreement with the radiologist's impression of these imaging studies. - EXAMINATION: CT HEAD WITHOUT CONTRAST CT CERVICAL SPINE WITHOUT CONTRAST CLINICAL INFORMATION: Fall. Head strike. Pain. COMPARISON: Brain MRI from 01/29/2023. TECHNIQUE: Contiguous axial imaging was performed from the skull base to vertex without intravenous administration of contrast. Contiguous axial imaging was performed from the upper chest through the skull base without intravenous administration of contrast. Coronal and sagittal reformats were obtained at the acquisition workstation. This CT examination was performed using dose optimization techniques as appropriate, variously including the following: *Automated exposure control. *Adjustment of mA and/or kV according to patient size (this includes techniques or standardized protocols for targeted exams where dose is matched to indication/reason for exam; i.e. extremities or head). *Use of iterative reconstruction technique. DLP: 1328 mGy-cm FINDINGS: Head: There is no evidence of acute intracranial hemorrhage or edematous territorial infarction. Ventura-white matter differentiation is preserved. Few chronic nonspecific foci of hypoattenuation in the periventricular and deep white matter. The ventricles are normal in morphology and size. No evidence for obstructive hydrocephalus. No abnormal mass effect or midline shift. No extra-axial fluid collections. No acute soft tissue or osseous abnormalities. Mild mucosal thickening of the paranasal sinuses. The mastoid air cells and middle ear cavities are clear. Cervical Spine: Mildly motion degraded exam. There is a band of motion artifact with the C5 vertebra. The atlantooccipital and atlantoaxial articulations remain well aligned. Straightening of the normal cervical lordosis. Otherwise, there is anatomic alignment of the vertebral bodies and posterior elements. Congenital nonunion of the posterior arch of C1. No overt evidence of acute fracture or subluxation. The vertebral body heights are maintained. Mild degenerative disc disease from C4-C6. There is no prevertebral soft tissue swelling. The thyroid gland and remaining cervical soft tissues are within normal limits. Right-sided tunneled internal jugular central venous catheter. The lung apices demonstrate no abnormalities. CT/CT head/brain wo IV con IMPRESSION: 1. No evidence of acute intracranial hemorrhage or edematous territorial infarction. 2. Mildly motion degraded exam of the cervical spine. Within this limitation, there is no evidence of acute fracture or traumatic subluxation of the cervical spine. Dictated By: Akil Palmer DO Signed By: Electronically signed by Akil Plamer DO 03/24/232102 - EXAMINATION: CT CHEST WITHOUT CONTRAST CLINICAL INFORMATION: Pain following fall COMPARISON: 07/24/2022 TECHNIQUE: Multidetector volumetric CT imaging of the chest was done. Axial MIP volume rendering provided. Sagittal and coronal reformatted images were obtained. This CT examination was performed using dose optimization techniques as appropriate, variously including the following: *Automated exposure control *Adjustment of mA and/or kV according to patient size (this includes techniques or standardized protocols for targeted exams where dose is matched to indication/reason for exam; i.e. extremities or head) *Use of iterative reconstruction technique DLP: 318.9 mGy-cm FINDINGS: CLOTH ROLL WINDER: There is an infusion catheter present with the tip over the atriocaval junction LUNGS: Lungs are clear with bibasilar atelectasis adjacent to the moderate sized pleural effusion on the right and atelectasis adjacent to the trace of pleural effusion on the left. There is 0.2 cm nodule in the right middle lobe seen on image. MEDIASTINUM 62 series 8. There is 0.3 cm right lower lobe nodules seen on image 81 series 8.: There is cardiomegaly and small pericardial effusion. There is dialysis catheter and the aorta at the cavoatrial junction. CORONARY ARTERY CALCIFICATION: Mild AXILLA: No lymphadenopathy. UPPER ABDOMEN: Unremarkable. OSSEOUS STRUCTURES: Unremarkable. CT/CT chest wo IV con IMPRESSION: 1. Moderate sized pleural effusion on the right and trace of pleural effusion on the left with adjacent atelectasis. 2. Cardiomegaly and small pericardial effusion. Fleischner guidelines were followed. Dictated By: Pat Cortez MD Signed By: Electronically signed by Pat Cortez MD 03/24/232051 - Vent. Rate: 73 BPM Atrial Rate: 73 BPM P-R Int: 164 ms QRS Dur: 146 ms QT Int: 476 ms P-R-T Axes: 076 -25 097 degrees QTc Int: 524 ms Normal sinus rhythm Right bundle branch block Abnormal ECG 03/21/23 1501 Radiology Impression Discussion of test interpretation with radiology: I have reviewed the radiologist's reading. Independent Historian Clinical information obtained from an independent historian. History obtained from or confirmed by: EMS (EMS provided additional history and confirmed the history provided by the patient.) Critical Care Time Critical Care Time Critical Care Time: Yes Total Critical Care Time: 55 Attestation: I spent 55 minutes of Critical Care Time with this patient. This does not include time spent on separately reported billable procedures. Discharge Plan Discharge Clinical Impression: ESRD on dialysis, Hypertension, Renal failure, Vomiting, Hyperkalemia Patient Disposition: Admitted As Inpatient Interventions: Admission Worksheet (ED) Last Done: 03/24/23 23:42
--- NOTE | 2023-03-24 18:49 | ECG_ITS ---
Test Reason : GEN MED Blood Pressure : / mmHG Vent. Rate : 073 BPM Atrial Rate : 073 BPM P-R Int : 164 ms QRS Dur : 146 ms QT Int : 476 ms P-R-T Axes : 076 -25 097 degrees QTc Int : 524 ms Normal sinus rhythm Right bundle branch block Abnormal ECG When compared with ECG of 20-MAR-2023 16:02, Nonspecific T wave abnormality no longer evident in Anterior leads Referred By: Adelaide Macias Electronically Signed By:Vinny Vera
[2023-03-24 19:27] LABS: MANUAL DIFF FLAG NO
[2023-03-24 19:29] LABS: Basophils Percent Auto 0.4 % (0-2); Eosinophils Absolute Auto 0.1 X10*3/uL (0.0-0.4); Hematocrit 29.7 % (37.0-47.0); Hemoglobin 9.5 g/dl (12.0-16.0); Imm Gran Abs Auto 0.01 X10*3/uL (0.00-0.03); Imm Gran Pct Auto 0.1 % (0.0-0.4); Lymphocytes Absolute Auto 0.6 X10*3/uL (1.2-4.9); Lymphocytes Percent Auto 8.1 % (20-40); Mean Corpuscular Hemoglobin 30.6 pg (27.0-33.0); Mean Corpuscular Volume 95.8 fL (80.0-98.0); Mean Platelet Volume 12.2 fL (9.4-12.3); Monocytes Absolute Auto 0.6 X10*3/uL (0.1-1.2); Monocytes Percent Auto 9.2 % (2-11); Neutrophils Absolute Auto 5.5 x10*3/uL (2.0-8.3); Neutrophils Percent Auto 81.2 % (45-73); Platelet Count 187 X10*3/uL (160-400); Red Cell Distribution Width 15.9 % (11.0-16.0); White Blood Count 6.8 X10*3/uL (4.8-10.8)
[2023-03-24] MEDS: ondansetron HCL 4 MG/2 ML VIAL IVPUSH (19:30)
[2023-03-24 19:31] VITALS: RESP 16
[2023-03-24] MEDS: HYDROmorphone HCl 2 MG/ML VIAL IVPUSH (19:31)
[2023-03-24 19:48] LABS: Alanine Aminotransferase 18 U/L (0-31); Albumin Level 3.2 g/dL (3.5-5.0); Alkaline Phosphatase 169 U/L (39-117); Anion Gap 18 (12-20); Aspartate Amino Transferase 33 U/L (5-31); Bilirubin Total 0.9 mg/dL (0.0-1.0); Blood Urea Nitrogen 83 mg/dL (9-16); Calcium 7.9 mg/dL (8.4-10.2); Carbon Dioxide 15 mmol/L (22-29); Chloride 106 mmol/L (96-108); Creatinine Clr Calc Pharmacy 11.9; Estimated Glomerular Filt Rate 7; Glucose Random 131 mg/dL (60-115); Magnesium 2.5 mg/dL (1.6-2.6); Potassium 6.2 mmol/L (3.3-5.1); Sodium 133 mmol/L (135-145); Total Protein 7.9 g/dL (6.5-8.0)
[2023-03-24 19:54] LABS: HCG Quantitative < 2 mIU/mL
[2023-03-24 21:07] VITALS: BP 191/101; PULSE 77; RESP 14
[2023-03-24 22:02] VITALS: BP 174/104; PULSE 74; RESP 17; TEMP 36.4; O2SAT 99
[2023-03-24 22:43] LABS: COVID-19 Test Negative (Negative); IDNOW Serial# 6674DD1D
[2023-03-24 22:44] LABS: IDNOW Serial# 58CA691E; Influenza A Negative (Negative); Influenza B2 Negative (Negative)
--- NOTE | 2023-03-24 23:36 | P.HPHOSP_ITS ---
History of Present Illness Date of Service: 03/24/23 Attending physician on admission: Lele Maria Chief Complaint: Shortness of breaths Shereen Taylor is a 32 years old woman with past medical history significant for end-stage renal disease on hemodialysis (Tuesdays and -she does not like to get dialysis on Sunday), type 2 diabetes mellitus, retinopathy + blindness, chronic diabetic foot s/p bilateral TMA, CHF, uncontrolled diabetes and chronic hypoxic respiratory failure on 4 L/min via nasal cannula presents to the emergency department complaining of shortness of breath and left-sided chest pain over the last 3 days. Patient has had multiple hospitalization with similar presentation. She actually was discharged from the hospital for the same issue 3 days ago. She stated that the last time she got dialysis was Sunday before being discharged. Did not go to dialysis last . Patient said that this morning she fell after losing her balance. She landed on her left side. No head trauma reported. In the ED, she was found to have hypertension. She is requiring 4 liters/minute supplemental oxygen via nasal cannula which is her baseline. Last blood pressure is 174/104. Blood workup is remarkable for hyperkalemia, 6.[address] showed moderate size pleural effusion on the right and traced on the left with adjacent atelectasis. There is small cardiomegaly and pericardial effusion. Head CT scan showed no evidence of acute intracranial hemorrhage, edema or infarctions. C-spine CT scan showed no evidence of acute fracture or traumatic subluxation of the spine (mildly motion degraded exam). ED tx: Morphine 4 mg IV, Dilaudid 2 mg IV, Lokelma 10 g p.o., Zofran 4 mg IV. Review of Systems 2 Review of Systems: All 12 systems were reviewed and normal except as noted in HPI. [facility] Medical History (Updated 03/25/23 @ 00:01 by Lele Maria MD) Hyperkalemia Metabolic acidosis End-stage renal disease (ESRD) HFrEF (heart failure with reduced ejection fraction) ESRD on dialysis Migraine Diabetic foot ulcer associated with type 2 diabetes mellitus Chronic pain Gastroparesis Non-compliance with renal dialysis Hypertension Hypertensive emergency Diabetes ESRD needing dialysis Cardiomyopathy delivery delivered Anemia in chronic kidney disease (CKD) CKD (chronic kidney disease) Headache, migraine Abnormal finding on echocardiogram Elevated troponin Chest pain Acute worsening of stage 3 chronic kidney disease Generalized edema Sepsis Cellulitis Pleural effusion CHF (congestive heart failure) (~06/07/22) Tachycardia Atypical chest pain Bone infection PAD (peripheral artery disease) Severe anemia Cellulitis and abscess of foot DM foot ulcer Osteomyelitis test positive test positive Asthma Depression with anxiety Diabetic retinopathy Type 2 diabetes mellitus with hyperglycemia, with long-term current use of insulin Blind right eye Diabetes Back pain Family History Mother Coronary artery disease Myocardial infarction Stroke Diabetes mellitus Father Myocardial infarction Surgical History 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 Social History Household Members: Family Household Members Other:: Sister, [id number], nephew Housing: Apartment Do you presently have visiting nurse or other home services: No Unable to assess alcohol history related to: Unknown Alcohol intake: never Comment: refuses camera Patient Tobacco Use Status: Never used Tobacco Smoked in Last 30 Days: No e-Cigarette/Vaping Use: Never Used Second Hand Smoke Exposure: No Use of substances other than those prescribed or required for medical reasons: No Advance Directives: Yes Advance Directives on File: Yes Advance Directives Date on File: 03/08/20 Patient : No service: No Current occupational status: unemployed and disabled Gender identity: Female Meds Allergies Allergy/AdvReac Type Severity Reaction Status Date / Time morphine [MORPHINE] Allergy Intermediate Itching Verified 03/24/23 16:53 azithromycin [From Zithromax] Allergy Hives Verified 03/24/23 16:53 gabapentin Allergy Facial Verified 03/24/23 16:53 Swelling tramadol Allergy Facial Verified 03/24/23 16:53 Swelling Active Medications: Current Medications Acetaminophen (Acetaminophen 325 Mg Tablet) 650 mg PO Q6H PRN PRN Reason: Pain, Mild (Pain Scale 1-3) Heparin Sodium (Porcine) (Heparin Sodium,Porcine 5,000 Unit/Ml Vial) 5,000 unit SUBCUT Q8H [facility] Sodium Chloride (0.9 % Sodium Chloride Flush 3 Ml Syringe) 3 ml IVFLUSH QSHIFT [facility] Home Medications Medication Instructions Recorded Confirmed Last Taken Type isosorbide mononitrate 30 mg 30 mg PO DAILY 03/11/23 03/20/23 03/20/23 History tablet,extended release 24 hr lidocaine 5 % topical patch 1 patch topical DAILY 03/11/23 03/20/23 03/20/23 History nifedipine 60 mg tablet,extended 60 mg PO DAILY 03/11/23 03/20/23 03/20/23 History release 24 hr oxycodone 5 mg tablet 5 mg PO Q6H PRN severe pain 03/11/23 03/20/23 03/20/23 History acetaminophen 325 mg tablet 650 mg PO Q4H PRN mild pain 03/20/23 03/20/23 Unknown History cholecalciferol (vitamin D3) 50 50 mcg PO DAILY 03/20/23 03/20/23 Unknown History mcg (2,000 unit) capsule sevelamer carbonate 800 mg tablet 800 mg PO TID 03/20/23 03/20/23 Unknown History Physical Exam 2 Vital Signs and Narrative: Vital Signs: Last Vital Signs Temp 97.6 F 03/24/23 22:02 Pulse 74 03/24/23 22:02 Resp 17 03/24/23 22:02 BP 174/104 H 03/24/23 22:02 Pulse Ox 99 03/24/23 22:02 O2 Del Method Nasal Cannula 03/24/23 22:02 O2 Flow Rate 4 03/24/23 22:02 Oxygen Flow Rate 4 03/24/23 16:21 BMI result Body Mass Index 29.0 Constitutional - Awake and Alert, No apparent distress. Uncomfortable due to pain HEENT - Atraumatic head. Dry oral mucosa. Heart - RRR. Respiratory - Normal lung expansion, Normal respiratory effort, No respiratory distress, tachypnea. Decreased breath sound, right base. No crackles. No wheezing. No rhonchi Gastrointestinal - NT / ND; +BS; No rebound or guarding - No CVA tenderness Extremities - edema Musculoskeletal - nontender Skin - Warm/Dry Neurological - Alert & oriented x3. Psychological - Depressed affect Results Labs 03/24/23 19:22 03/24/23 19:22 Labs: Laboratory Results - last 24 hr 03/24/23 19:22 MCV 95.8 MCH 30.6 MCHC 32.0 RDW 15.9 Plt Count 187 MPV 12.2 Immature Gran % (Auto) 0.1 Neut % (Auto) 81.2 H Lymph % (Auto) 8.1 L Levy % (Auto) 9.2 Eos % (Auto) 1.0 Baso % (Auto) 0.4 Lymph # (Auto) 0.6 L Levy # (Auto) 0.6 Eos # (Auto) 0.1 Baso # (Auto) 0.0 Abs Immat Gran (auto) 0.01 Absolute Neuts (auto) 5.5 Absolute Nucleated RBC 0.000 Nucleated RBC % (auto) 0.0 Anion Gap 18 Estim Creat Clear Calc 11.9 Estimated GFR 7 Random Glucose 131 H Calcium 7.9 L D Magnesium 2.5 Total Bilirubin 0.9 AST 33 H ALT 18 Alkaline Phosphatase 169 H Total Protein 7.9 Albumin 3.2 L Beta HCG, Quant < 2 COVID-19 (CARO) Negative COVID-19 Clin Com See Note Influenza Type A (MILTON) Negative Influenza Type B (MILTON) Negative Influenza A & B Note See Note Imaging Radiologist's Impressions: Impressions Cervical Spine CT 03/24/23 20:36 IMPRESSION: 1. No evidence of acute intracranial hemorrhage or edematous territorial infarction. 2. Mildly motion degraded exam of the cervical spine. Within this limitation, there is no evidence of acute fracture or traumatic subluxation of the cervical spine. Chest CT 03/24/23 20:36 IMPRESSION: 1. Moderate sized pleural effusion on the right and trace of pleural effusion on the left with adjacent atelectasis. 2. Cardiomegaly and small pericardial effusion. Fleischner guidelines were followed. Head CT 03/24/23 20:36 IMPRESSION: 1. No evidence of acute intracranial hemorrhage or edematous territorial infarction. 2. Mildly motion degraded exam of the cervical spine. Within this limitation, there is no evidence of acute fracture or traumatic subluxation of the cervical spine. Assessment and Plan (1) Volume overload: Qualifiers: Hypervolemia type: unspecified Qualified Code(s): E87.70 - Fluid overload, unspecified Status: Acute (2) Metabolic acidosis: Status: Acute (3) Hyperkalemia: Status: Acute Plan Shereen Taylor is a 32 years old woman with past medical history significant for end-stage renal disease on hemodialysis (Tuesdays and -she does not like to get dialysis on Sunday), retinopathy w/ blindness and chronic hypoxic respiratory failure admitted with: * Shortness of her likely secondary to fluid overload/right pleural effusion/atelectasis + decompensated congestive heart failure. History of noncompliance with dialysis Admit to hospitalist service. Telemetry. Pulse oximetry. Patient will undergo emergent hemodialysis (wet process operator on-call contacted by ED). Continue supplemental oxygen. Low-salt diet. * Hyperkalemia and metabolic acidosis. Emergent hemodialysis. * Uncontrolled hypertension. Continue losartan, carvedilol and hydralazine. * Left foot diabetic ulcer, chronic. Recent MRI was negative for osteomyelitis. Recently completed course of doxycycline. * Type 2 diabetes mellitus. Insulin sliding scale. Blood glucose monitoring. Diabetic diet. * Anemia, chronic. Continue to monitor hemoglobin. DVT prophylaxis: Heparin subQ Code status: Full. Patient will need hospitalization for at least 2 midnight for fluid overload associated with hyperkalemia and metabolic acidosis treatment with emergent hemodialysis and close monitoring of vital signs. Quality Stroke Does the patient have a stroke diagnosis?: No VTE Prior VTE?: No VTE Risk Level:: Medical - moderate - high VTE Device Contraindication: Treatment Not Indicated VTE Drug Contraindication: N/A - Med Ordered
[2023-03-25] VITALS (10 sets, daily range): BP systolic 150–224; BP diastolic 85–109; PULSE 81–92; RESP 16–20; TEMP 35.9–37.3; O2SAT 93–100; BMI 28.7
[2023-03-25] MEDS: hydrALAZINE HCl 20 MG/ML VIAL IVPUSH ×3 (03:07→16:02)
[2023-03-25] MEDS: ondansetron HCL 4 MG/2 ML VIAL IVPUSH (03:07)
[2023-03-25] MEDS: cloNIDine HCL 0.1 MG TABLET 0.3 MG PO ×3 (03:08→20:29)
[2023-03-25] MEDS: HYDROmorphone HCl 1 MG/ML SYRINGE IVPUSH ×6 (03:08→22:45)
[2023-03-25] MEDS: 0.9 % Sodium Chloride Flush 3 ML SYRINGE IVFLUSH ×4 (03:08→22:45)
[2023-03-25] MEDS: Losartan Potassium 25 MG TABLET PO (05:19)
[2023-03-25 07:27] LABS: Glucose, Whole Blood 80 mg/dL (60-115)
--- NOTE | 2023-03-25 08:14 | PHA.MEDREC ---
Pharmacy Consult ? Medication Reconciliation Pharmacy has completed the medication reconciliation. Pt previously discharged on 03/22/23. Utilized discharge packet and medical record to confirm meds.
[2023-03-25 08:45] LABS: Alanine Aminotransferase 17 U/L (0-31); Albumin Level 3.2 g/dL (3.5-5.0); Alkaline Phosphatase 162 U/L (39-117); Anion Gap 18 (12-20); Aspartate Amino Transferase 21 U/L (5-31); Blood Urea Nitrogen 49 mg/dL (9-16); Calcium 8.8 mg/dL (8.4-10.2); Carbon Dioxide 19 mmol/L (22-29); Chloride 101 mmol/L (96-108); Estimated Glomerular Filt Rate 10; Glucose Random 76 mg/dL (60-115); Magnesium 2.1 mg/dL (1.6-2.6); Phosphorus 5.6 mg/dL (2.7-4.5); Potassium 4.1 mmol/L (3.3-5.1); Sodium 134 mmol/L (135-145); Total Protein 7.6 g/dL (6.5-8.0)
[2023-03-25 09:55] LABS: Glucose, Whole Blood 74 mg/dL (60-115)
[2023-03-25 11:25] LABS: Glucose, Whole Blood 76 mg/dL (60-115)
--- NOTE | 2023-03-25 13:44 | P.PNIM_ITS ---
Subjective Subjective Date of Service: 03/25/23 Interval History: No acute issues overnight. Presentation similar to past episodes Review of Systems Denies chest pain Denies shortness of breath Denies nausea vomiting diarrhea Denies fever chills Physical Exam 2 Vital Signs: Vital Signs: Last Vital Signs Temp 96.9 F 03/25/23 11:10 Pulse 81 03/25/23 11:10 Resp 18 03/25/23 11:10 BP 150/90 H 03/25/23 12:37 Pulse Ox 96 03/25/23 11:17 O2 Del Method Nasal Cannula 03/25/23 11:17 O2 Flow Rate 3 03/25/23 11:17 Oxygen Flow Rate 4 03/24/23 16:21 BMI result Body Mass Index 28.7 Const: Other: Awake alert no acute distress Resp: Other: Clear to auscultation bilaterally no rales rhonchi or wheezes Cardio: Other: No S4; positive S1-S2; no S3 murmurs rubs or gallops GI: Other: Soft nontender nondistended normoactive bowel sounds Extrem: Other: No edema bilaterally Objective Data Active Medications Acetaminophen (Acetaminophen 325 Mg Tablet) 650 mg PO Q6H PRN PRN Reason: Pain, Mild (Pain Scale 1-3) Clonidine HCl (Clonidine Hcl 0.1 Mg Tablet) 0.3 mg PO BID [facility]; Protocol Last Admin: 03/25/23 09:55 Dose: 0.3 mg Documented By: CARLY Heparin Sodium (Porcine) (Heparin Sodium,Porcine 5,000 Unit/Ml Vial) 5,000 unit SUBCUT Q8H [facility] Last Admin: 03/25/23 10:03 Dose: Not Given Documented By: CARLY Non-Admin Reason: Patient Refused Hydralazine HCl (Hydralazine Hcl 20 Mg/Ml Vial) 20 mg IVPUSH Q4H PRN; Protocol PRN Reason: SBP > 160 Last Admin: 03/25/23 11:50 Dose: 20 mg Documented By: CARLY Hydromorphone HCl (Hydromorphone Hcl 1 Mg/Ml Syringe) 1 mg IVPUSH Q4H PRN; Protocol PRN Reason: Pain, Severe (Pain Scale 7-10) Last Admin: 03/25/23 09:57 Dose: 1 mg Documented By: CARLY Losartan Potassium (Losartan Potassium 25 Mg Tablet) 25 mg PO DAILY [facility]; Protocol Last Admin: 03/25/23 05:19 Dose: 25 mg Documented By: MONTEZ Ondansetron HCl (Ondansetron Hcl 4 Mg/2 Ml Vial) 4 mg IVPUSH Q6H PRN PRN Reason: Nausea and Vomiting Last Admin: 03/25/23 03:07 Dose: 4 mg Documented By: MONTEZ Sodium Chloride (0.9 % Sodium Chloride Flush 3 Ml Syringe) [facility] Last Admin: 03/25/23 10:00 Dose: 3 ml Documented By: CARLY Labs 03/24/23 19:22 03/25/23 07:57 Labs: Laboratory Results - last 24 hr 03/24/23 03/25/23 03/25/23 19:22 07:06 07:57 MCV 95.8 MCH 30.6 MCHC 32.0 RDW 15.9 Plt Count 187 MPV 12.2 Immature Gran % (Auto) 0.1 Neut % (Auto) 81.2 H Lymph % (Auto) 8.1 L Fountain % (Auto) 9.2 Eos % (Auto) 1.0 Baso % (Auto) 0.4 Lymph # (Auto) 0.6 L Fountain # (Auto) 0.6 Eos # (Auto) 0.1 Baso # (Auto) 0.0 Abs Immat Gran (auto) 0.01 Absolute Neuts (auto) 5.5 Absolute Nucleated RBC 0.000 Nucleated RBC % (auto) 0.0 Anion Gap 18 18 Estim Creat Clear Calc 11.9 17.0 Estimated GFR 7 10 POC Glucose 80 Random Glucose 131 H 76 Calcium 7.9 L D 8.8 D Phosphorus 5.6 H Magnesium 2.5 2.1 Total Bilirubin 0.9 1.0 AST 33 H 21 ALT 18 17 Alkaline Phosphatase 169 H 162 H Total Protein 7.9 7.6 Albumin 3.2 L 3.2 L Beta HCG, Quant < 2 COVID-19 (CARO) Negative COVID-19 Clin Com See Note Influenza Type A (MILTON) Negative Influenza Type B (MILTON) Negative Influenza A & B Note See Note 03/25/23 03/25/23 09:49 11:07 MCV MCH MCHC RDW Plt Count MPV Immature Gran % (Auto) Neut % (Auto) Lymph % (Auto) Fountain % (Auto) Eos % (Auto) Baso % (Auto) Lymph # (Auto) Fountain # (Auto) Eos # (Auto) Baso # (Auto) Abs Immat Gran (auto) Absolute Neuts (auto) Absolute Nucleated RBC Nucleated RBC % (auto) Anion Gap Estim Creat Clear Calc Estimated GFR POC Glucose 74 76 Random Glucose Calcium Phosphorus Magnesium Total Bilirubin AST ALT Alkaline Phosphatase Total Protein Albumin Beta HCG, Quant COVID-19 (CARO) COVID-19 Clin Com Influenza Type A (MILTON) Influenza Type B (MILTON) Influenza A & B Note Assessment and Plan (1) Heart failure, diastolic, with acute decompensation: Status: Acute (2) Volume overload: Status: Acute (3) ESRD on dialysis: Status: Acute Plan Shereen Taylor is a 32 years old woman with past medical history significant for end-stage renal disease on hemodialysis (Tuesdays and -she does not like to get dialysis on Sunday), retinopathy w/ blindness and chronic hypoxic respiratory failure admitted with fluid overload secondary to noncompliance 1.Decompensated systolic congestive heart failure -quite similar to past hospitalizations -consulted nephrology for hemodialysis -follow renals/divalents 2.Hyperkalemia/metabolic acidosis. -resume dialysis -Lokelma as indicated --stressed compliance 3.Uncontrolled hypertension -control improved with resumption of outpatient therapies -follow-up after dialysis -adjust therapies as indicated 4.Type 2 diabetes mellitus -acceptable control on current therapies -lispro correctional scale -adjust as indicated Heparin subQ Full code Patient will require ongoing hospitalization for urgent dialysis and specialist consultation Quality Stroke Does the patient have a stroke diagnosis?: No VTE Prior VTE?: No VTE Risk Level:: Medical - moderate - high VTE Device Contraindication: Treatment Not Indicated VTE Drug Contraindication: N/A - Med Ordered
--- NOTE | 2023-03-25 16:20 | PC.NURSE ---
informed pt is a DM but has no poc orders
[2023-03-25 16:36] LABS: Glucose, Whole Blood 105 mg/dL (60-115)
--- NOTE | 2023-03-25 17:15 | PC.NURSE ---
Addendum entered by Thor Patrick RN 03/25/23 17:47: pt was unable to void on commode and c/o blader pressure and pain to palpation. bladder scan was >1300. md informed. edwards placed per md verbal order. pt emptied ~1600cc Original Note: informed Md of pt's BP. no interventions at this time. performed dressing change to L foot.
[2023-03-25 18:08] LABS: Appearance Urine Clear; Color Urine Yellow; Glucose Urine UA 250 mg/dL (Negative); Leukocyte Esterase Urine Negative (Negative); Nitrite Urine Negative (Negative); Specific Gravity - Urine 1.015 (1.005-1.025); UMIC TRIGGER UACC YES; Urine Blood Trace (Negative); Urine Ketones Negative (Negative); Urine Protein >=1000 (4+) mg/dL (Neg-Trace)
[2023-03-25 18:15] LABS: Bacteria Urine None Seen (None Seen); Hyaline Casts Urine 0-2 /LPF (0-2); RBC Urine 0-2 /HPF (0-2); Squamous Epithelial Cell Urine 0-2 /HPF (0-2); WBC Urine 0-5 /HPF (0-5)
--- NOTE | 2023-03-25 19:53 | PC.NURSE ---
Addendum entered by Anuradha Hsu RN 03/25/23 19:59: New orders for POC, sliding scale insulin and hypoglycemic protocol entered. Original Note: Pt has a history of diabetes, no POC orders or hypoglycemic protocol in [facility], MD Dr Noonan made aware.
[2023-03-25 19:57] LABS: Glucose, Whole Blood 156 mg/dL (60-115)
[2023-03-26] MEDS: HYDROmorphone HCl 1 MG/ML SYRINGE IVPUSH ×5 (02:44→21:29)
[2023-03-26] MEDS: 0.9 % Sodium Chloride Flush 3 ML SYRINGE IVFLUSH ×3 (07:25→23:41)
[2023-03-26 07:35] LABS: Glucose, Whole Blood 205 mg/dL (60-115)
[2023-03-26 07:37] VITALS: BP 165/55; PULSE 75; RESP 16; TEMP 36.1; O2SAT 97
--- NOTE | 2023-03-26 08:52 | MHC.CLN ---
NUTRITION PATIENT WITH DM AND ESRD ON HEMODIALYSIS. CHANGED DIET PER DIALYSIS PARAMETERS: DM 1800 KCAL, 2 GRAM SODIUM, LOW POTASSIUM.
[2023-03-26] MEDS: cloNIDine HCL 0.1 MG TABLET 0.3 MG PO ×2 (09:32→19:21)
[2023-03-26] MEDS: Losartan Potassium 25 MG TABLET PO (09:32)
[2023-03-26] MEDS: ondansetron HCL 4 MG/2 ML VIAL IVPUSH ×2 (09:32→17:15)
[2023-03-26 09:38] LABS: Glucose, Whole Blood 192 mg/dL (60-115)
[2023-03-26] MEDS: Insulin Lispro 100 UNIT/ML 3 ML VIAL SUBCUT ×2 (09:39→20:36)
--- NOTE | 2023-03-26 11:28 | HO.WOUND ---
Wound Consult: [place] 32yr [place] [facility] [place] 22[place]- See progress notes and H&P for detailed history. Wound consult placed for Chronic Left Plantar Wound. [place] [facility] [place]. Left Plantar Foot Etiology: Diabetic Foot wound Measurements: 1cm x 1.5cm x 0.3cm Wound Bed: Moist pink and pale pink tissue noted - then yellow slough noted Drainage / Odor: no odor noted - yellow drainage noted on dressing Edges: ? callused Pao wound: ? No Induration, No Fluctuance, No Erythema, No Warmth - no S/S of active infection Pain: Denies reports neuropathy Goals of Treatment: ? Alginate / Hydrofiber for moisture management and antimicrobial properties. Recommendations: 1. Turn and Reposition every 2 hours and as needed for patient comfort. 2. Off Load all bony prominences with use of pillows and heel boots as needed. 3. Provide adequate and supplemental nutrition. 4. Maintain blood glucose levels per Providers orders. 5. Left Plantar foot - Off Load Pressure - Cleanse with NS, Pat dry. Apply cut to size Alginate / Durafiber AGl to wound bed followed by dry gauze, Abd Pad, gauze wrap secure with tape. Change every other day.
--- NOTE | 2023-03-26 11:32 | P.PNIM_ITS ---
Subjective Subjective Date of Service: 03/26/23 Interval History: No acute issues overnight. Still nauseous with diffuse dull abdominal pain Review of Systems Denies chest pain Denies shortness of breath Denies nausea vomiting diarrhea Denies fever chills Physical Exam 2 Vital Signs: Vital Signs: Last Vital Signs Temp 97.0 F 03/26/23 07:37 Pulse 75 03/26/23 07:37 Resp 16 03/26/23 07:37 BP 165/55 H 03/26/23 07:37 Pulse Ox 97 03/26/23 07:37 O2 Del Method Nasal Cannula 03/26/23 07:37 O2 Flow Rate 2 03/26/23 07:37 Oxygen Flow Rate 4 03/24/23 16:21 BMI result Body Mass Index 28.7 Const: Other: Awake alert no acute distress Resp: Other: Clear to auscultation bilaterally no rales rhonchi or wheezes Cardio: Other: No S4; positive S1-S2; no S3 murmurs rubs or gallops GI: Other: Soft nontender nondistended normoactive bowel sounds Extrem: Other: No edema bilaterally Objective Data Active Medications Acetaminophen (Acetaminophen 325 Mg Tablet) 650 mg PO Q6H PRN PRN Reason: Pain, Mild (Pain Scale 1-3) Clonidine HCl (Clonidine Hcl 0.1 Mg Tablet) 0.3 mg PO BID [facility]; Protocol Last Admin: 03/26/23 09:32 Dose: 0.3 mg Documented By: JENNY Dextrose (Dextrose 50 % 25 Gm/50 Ml Syringe) 25 gm IVPUSH Q15M PRN; Protocol PRN Reason: per Hypoglycemia Standing Ord. Glucose (Glucose Gel 15 Gm Gel..Gram.) 15 gm PO Q15M PRN; Protocol PRN Reason: per Hypoglycemia Standing Ord. Heparin Sodium (Porcine) (Heparin Sodium,Porcine 5,000 Unit/Ml Vial) 5,000 unit SUBCUT Q8H [facility] Last Admin: 03/26/23 09:40 Dose: Not Given Documented By: JENNY Non-Admin Reason: Patient Refused Hydralazine HCl (Hydralazine Hcl 20 Mg/Ml Vial) 20 mg IVPUSH Q4H PRN; Protocol PRN Reason: SBP > 160 Last Admin: 03/25/23 16:02 Dose: 20 mg Documented By: CARLY Hydromorphone HCl (Hydromorphone Hcl 1 Mg/Ml Syringe) 1 mg IVPUSH Q4H PRN; Protocol PRN Reason: Pain, Severe (Pain Scale 7-10) Last Admin: 03/26/23 07:19 Dose: 1 mg Documented By: JENNY Insulin Human Lispro (Insulin Lispro 100 Unit/Ml 3 Ml Vial) 0 unit SUBCUT QIDACHS [facility]; Protocol Last Admin: 03/26/23 09:39 Dose: 2 unit Documented By: JENNY Losartan Potassium (Losartan Potassium 25 Mg Tablet) 25 mg PO DAILY [facility]; Protocol Last Admin: 03/26/23 09:32 Dose: 25 mg Documented By: JENNY Ondansetron HCl (Ondansetron Hcl 4 Mg/2 Ml Vial) 4 mg IVPUSH Q6H PRN PRN Reason: Nausea and Vomiting Last Admin: 03/26/23 09:32 Dose: 4 mg Documented By: JENNY Sodium Chloride (0.9 % Sodium Chloride Flush 3 Ml Syringe) 3 ml IVFLUSH [facility] Last Admin: 03/26/23 07:25 Dose: 3 ml Documented By: JENNY Labs 03/24/23 19:22 03/25/23 07:57 Labs: Laboratory Results - last 24 hr 03/25/23 03/25/23 03/25/23 16:26 17:48 19:53 POC Glucose 105 156 H Urine Color Yellow Urine Appearance Clear Urine pH 6.0 Ur Specific [place] 1.015 Urine Protein >=1000 (4+) H Urine Glucose (UA) 250 H Urine Ketones Negative Urine Blood Trace H Urine Nitrite Negative Ur Leukocyte Esterase Negative Urine RBC 0-2 Urine WBC 0-5 Ur Squamous Epith Cells 0-2 Urine Bacteria None Seen Hyaline Casts 0-2 03/26/23 03/26/23 07:31 09:35 POC Glucose 205 H 192 H Urine Color Urine Appearance Urine pH Ur Specific [place] Urine Protein Urine Glucose (UA) Urine Ketones Urine Blood Urine Nitrite Ur Leukocyte Esterase Urine RBC Urine WBC Ur Squamous Epith Cells Urine Bacteria Hyaline Casts Assessment and Plan (1) Heart failure, diastolic, with acute decompensation: Status: Acute (2) Hyperkalemia: Status: Acute (3) ESRD on dialysis: Status: Acute Plan Shereen Taylor is a 32 years old woman with past medical history significant for end-stage renal disease on hemodialysis (Tuesdays and -she does not like to get dialysis on Sunday), retinopathy w/ blindness and chronic hypoxic respiratory failure admitted with fluid overload secondary to noncompliance 1.Decompensated systolic congestive heart failure -well compensated at this time -quite similar to past hospitalizations -follow renals/divalents 2.Hyperkalemia/metabolic acidosis. -resume dialysis -Lokelma as indicated --stressed compliance 3.Uncontrolled hypertension -control improved with resumption of outpatient therapies -follow-up after dialysis -adjust therapies as indicated 4.Type 2 diabetes mellitus -acceptable control on current therapies -lispro correctional scale -adjust as indicated Heparin subQ Full code Patient will require ongoing hospitalization for urgent dialysis and specialist consultation Quality Stroke Does the patient have a stroke diagnosis?: No VTE Prior VTE?: No VTE Risk Level:: Medical - moderate - high VTE Device Contraindication: Treatment Not Indicated VTE Drug Contraindication: N/A - Med Ordered
--- NOTE | 2023-03-26 12:13 | PM.CNNEP ---
History of Present Illness Reason for Consult Consult date: 03/26/23 Chief Complaint Chief complaint: Fluid overloading History of Present Illness Narrative: 32 year old patient with history of chronic HD admitted with decompensated CHF. At the time of the consultation she is having dialysis. She presented with shortness of breath and currently complains of nausea and diffuse abdominal pain. Review of Systems Review of Systems 10 points ROS negative except for pertinent in HPI PMFSH Past Medical History Medical History (Updated 03/26/23 @ 12:15 by Jason Sanchez MD) End-stage renal disease (ESRD) Anemia Hyperkalemia Metabolic acidosis HFrEF (heart failure with reduced ejection fraction) ESRD on dialysis Migraine Diabetic foot ulcer associated with type 2 diabetes mellitus Chronic pain Gastroparesis Non-compliance with renal dialysis Hypertension Hypertensive emergency Diabetes ESRD needing dialysis Cardiomyopathy delivery delivered Anemia in chronic kidney disease (CKD) CKD (chronic kidney disease) Headache, migraine Abnormal finding on echocardiogram Elevated troponin Chest pain Acute worsening of stage 3 chronic kidney disease Generalized edema Sepsis Cellulitis Pleural effusion CHF (congestive heart failure) (~06/07/22) Tachycardia Atypical chest pain Bone infection PAD (peripheral artery disease) Severe anemia Cellulitis and abscess of foot DM foot ulcer Osteomyelitis test positive test positive Asthma Depression with anxiety Diabetic retinopathy Type 2 diabetes mellitus with hyperglycemia, with long-term current use of insulin Blind right eye Diabetes Back pain Family History Family History Mother Coronary artery disease Myocardial infarction Stroke Diabetes mellitus Father Myocardial infarction Surgical History Surgical History 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 Social History Social History Household Members: Family Household Members Other:: Sister, [id number], nephew Housing: Apartment Do you presently have visiting nurse or other home services: No Unable to assess alcohol history related to: Unknown Alcohol intake: never Comment: refuses camera Patient Tobacco Use Status: Never used Tobacco e-Cigarette/Vaping Use: Never Used Second Hand Smoke Exposure: No Advance Directives Date on File: 03/08/20 service: No Current occupational status: unemployed and disabled Gender identity: Female Meds Allergies Allergy/AdvReac Type Severity Reaction Status Date / Time morphine [MORPHINE] Allergy Intermediate Itching Verified 03/24/23 16:53 azithromycin [From Zithromax] Allergy Hives Verified 03/24/23 16:53 gabapentin Allergy Facial Verified 03/24/23 16:53 Swelling tramadol Allergy Facial Verified 03/24/23 16:53 Swelling Active Medications: Current Medications Acetaminophen (Acetaminophen 325 Mg Tablet) 650 mg PO Q6H PRN PRN Reason: Pain, Mild (Pain Scale 1-3) Clonidine HCl (Clonidine Hcl 0.1 Mg Tablet) 0.3 mg PO BID [facility]; Protocol Last Admin: 03/26/23 09:32 Dose: 0.3 mg Dextrose (Dextrose 50 % 25 Gm/50 Ml Syringe) 25 gm IVPUSH Q15M PRN; Protocol PRN Reason: per Hypoglycemia Standing Ord. Glucose (Glucose Gel 15 Gm Gel..Gram.) 15 gm PO Q15M PRN; Protocol PRN Reason: per Hypoglycemia Standing Ord. Heparin Sodium (Porcine) (Heparin Sodium,Porcine 5,000 Unit/Ml Vial) 5,000 unit SUBCUT Q8H [facility] Last Admin: 03/26/23 09:40 Dose: Not Given Hydralazine HCl (Hydralazine Hcl 20 Mg/Ml Vial) 20 mg IVPUSH Q4H PRN; Protocol PRN Reason: SBP > 160 Last Admin: 03/25/23 16:02 Dose: 20 mg Hydromorphone HCl (Hydromorphone Hcl 1 Mg/Ml Syringe) 1 mg IVPUSH Q4H PRN; Protocol PRN Reason: Pain, Severe (Pain Scale 7-10) Last Admin: 03/26/23 12:09 Dose: 1 mg Insulin Human Lispro (Insulin Lispro 100 Unit/Ml 3 Ml Vial) 0 unit SUBCUT QIDACHS [facility]; Protocol Last Admin: 03/26/23 09:39 Dose: 2 unit Losartan Potassium (Losartan Potassium 25 Mg Tablet) 25 mg PO DAILY [facility]; Protocol Last Admin: 03/26/23 09:32 Dose: 25 mg Ondansetron HCl (Ondansetron Hcl 4 Mg/2 Ml Vial) 4 mg IVPUSH Q6H PRN PRN Reason: Nausea and Vomiting Last Admin: 03/26/23 09:32 Dose: 4 mg Sodium Chloride (0.9 % Sodium Chloride Flush 3 Ml Syringe) [facility] Last Admin: 03/26/23 07:25 Dose: 3 ml Home Medications Medication Instructions Recorded Confirmed Last Taken Type isosorbide mononitrate 30 mg 30 mg PO DAILY 03/11/23 03/25/23 03/20/23 History tablet,extended release 24 hr lidocaine 5 % topical patch 1 patch topical DAILY 03/11/23 03/25/23 03/20/23 History nifedipine 60 mg tablet,extended 60 mg PO DAILY 03/11/23 03/25/23 03/20/23 History release 24 hr oxycodone 5 mg tablet 5 mg PO Q6H PRN severe pain 03/11/23 03/25/23 03/20/23 History acetaminophen 325 mg tablet 650 mg PO Q4H PRN mild pain 03/20/23 03/25/23 Unknown History cholecalciferol (vitamin D3) 50 50 mcg PO DAILY 03/20/23 03/25/23 Unknown History mcg (2,000 unit) capsule sevelamer carbonate 800 mg tablet 800 mg PO TID 03/20/23 03/25/23 Unknown History Physical Exam Vital Signs: Last Vital Signs Temp 97.0 F 03/26/23 07:37 Pulse 75 03/26/23 07:37 Resp 16 03/26/23 07:37 BP 165/55 H 03/26/23 07:37 Pulse Ox 97 03/26/23 07:37 O2 Del Method Nasal Cannula 03/26/23 07:37 O2 Flow Rate 2 03/26/23 07:37 Oxygen Flow Rate 4 03/24/23 16:21 BMI result Body Mass Index 28.7 Const General: no acute distress HEENT Head: Yes normocephalic and Yes atraumatic Neck Neck: Yes no JVD Resp Auscultation: diminished lung sounds Cardio Heart sounds: S1 normal heart sound present and S2 normal heart sound present GI Palpation (GI): Soft to palpation and nontender Extrem General: Yes no pedal edema Results Lab Results 03/24/23 19:22 03/25/23 07:57 Lab results: Chemistry 03/24/23 03/25/23 19:22 07:57 Sodium 133 L 134 L Potassium 6.2 H* D 4.1 D Carbon Dioxide 15 L 19 L BUN 83 H 49 H Creatinine 7.17 H* 4.99 H* Calcium 7.9 L D 8.8 D Phosphorus 5.6 H Hematology 03/24/23 19:22 WBC 6.8 Hgb 9.5 L Plt Count 187 Urinalysis 03/25/23 17:48 Urine Color Yellow Urine Appearance Clear Urine pH 6.0 Ur Specific [place] 1.015 Urine Protein >=1000 (4+) H Urine Glucose (UA) 250 H Urine Ketones Negative Urine Blood Trace H Urine Nitrite Negative Ur Leukocyte Esterase Negative Urine RBC 0-2 Urine WBC 0-5 Ur Squamous Epith Cells 0-2 Hyaline Casts 0-2 Assessment and Plan (1) End-stage renal disease (ESRD): Status: Acute (2) HFrEF (heart failure with reduced ejection fraction): Status: Acute (3) Anemia: Status: Inactive Plan known ESRD on HD t-t-s followedti Siddiqi nephrogenic anemia h/o HFrEF REC HD today optimize volume status VIPUL renal diet phosphate binders Procedures Date of Service Date of Service: 03/26/23
[2023-03-26 13:36] LABS: Glucose, Whole Blood 107 mg/dL (60-115)
[2023-03-26 13:45] VITALS: PULSE 76
[2023-03-26 13:53] LABS: MANUAL DIFF FLAG NO
[2023-03-26 14:01] LABS: Basophils Percent Auto 0.9 % (0-2); Eosinophils Absolute Auto 0.2 X10*3/uL (0.0-0.4); Eosinophils Percent Auto 3.7 % (0-4); Hematocrit 32.2 % (37.0-47.0); Hemoglobin 10.4 g/dl (12.0-16.0); Imm Gran Abs Auto 0.01 X10*3/uL (0.00-0.03); Imm Gran Pct Auto 0.2 % (0.0-0.4); Lymphocytes Absolute Auto 0.3 X10*3/uL (1.2-4.9); Lymphocytes Percent Auto 6.6 % (20-40); Mean Corpuscular HGB Conc 32.3 g/dl (31.0-35.0); Mean Corpuscular Hemoglobin 30.1 pg (27.0-33.0); Mean Corpuscular Volume 93.3 fL (80.0-98.0); Mean Platelet Volume 11.6 fL (9.4-12.3); Monocytes Absolute Auto 0.6 X10*3/uL (0.1-1.2); Monocytes Percent Auto 13.8 % (2-11); Neutrophils Absolute Auto 3.4 x10*3/uL (2.0-8.3); Neutrophils Percent Auto 74.8 % (45-73); Platelet Count 200 X10*3/uL (160-400); Red Blood Count 3.45 X10*6/uL (4.20-5.50); Red Cell Distribution Width 15.2 % (11.0-16.0); White Blood Count 4.6 X10*3/uL (4.8-10.8)
[2023-03-26 14:14] LABS: Alanine Aminotransferase 17 U/L (0-31); Albumin Level 3.2 g/dL (3.5-5.0); Alkaline Phosphatase 163 U/L (39-117); Anion Gap 11 (12-20); Aspartate Amino Transferase 20 U/L (5-31); Bilirubin Total 0.9 mg/dL (0.0-1.0); Blood Urea Nitrogen 25 mg/dL (9-16); Calcium 8.4 mg/dL (8.4-10.2); Carbon Dioxide 23 mmol/L (22-29); Chloride 100 mmol/L (96-108); Creatinine Clr Calc Pharmacy 28.4; Estimated Glomerular Filt Rate 18; Glucose Fasting 103 mg/dL (60-99); Potassium 3.7 mmol/L (3.3-5.1); Sodium 130 mmol/L (135-145); Total Protein 8.1 g/dL (6.5-8.0)
--- NOTE | 2023-03-26 15:22 | MHC.CM.PN ---
PT REPORTS SHE LIVES WITH HER SISTER WHO IS HER RESIDENTIAL GLAZIER PT HAS 34 DAY AND 14 NIGHT RESIDENTIAL GLAZIER HOURS PER WEEK PT ALSO ATTENDS HD AT [facility] 3X/WK PT HAS A WHEEL CHAIR AT HOME HCP ON FILE PCP: ARMANI CHATMAN IMM DELIVERED DCP: HOME, RESUME RESIDENTIAL G[facility]ZIER AND HD SISTER TO TRANSPORT
--- NOTE | 2023-03-26 15:24 | PC.NURSE ---
1514- indwelling edwards catheter removed without complications. Device intact. Patient tolerated well. Due to void by 2114.
[2023-03-26] MEDS: hydrALAZINE HCl 20 MG/ML VIAL IVPUSH (15:43)
[2023-03-26 15:46] VITALS: BP 214/101; PULSE 78; RESP 18; TEMP 35.8; O2SAT 100
--- NOTE | 2023-03-26 16:01 | PC.NURSE ---
Afternoon vital signs obtained. Blood pressure 214/101 and heart rate of 78bpm. No signs of symptoms of distress. Dr. Shepherd notified. PRN 20mg of IV hydralazine administered, with plan to reassess in approximately 30 minutes.
[2023-03-26 16:50] VITALS: BP 218/103
[2023-03-26 16:52] LABS: Glucose, Whole Blood 161 mg/dL (60-115)
--- NOTE | 2023-03-26 17:21 | PC.NURSE ---
Blood pressure reassessment post hydralazine administration - 218/103 automated. Patient refusing manual BP's and intermittently refusing vital signs. JOVON Vasquez notified. Plan to treat patient's nausea and severe pain with PRN medication and re-evaluate. Patient received PRN dilaudid and zofran- refer to MAR for details. Patient informed of plan and agreeable at this time for blood pressure re-assessment.
--- NOTE | 2023-03-26 18:28 | PC.NURSE ---
BP re-assessment post dialudid administration is 191/93. Dr. Jeannie Shepherd notified. Ordered to admin evening BP meds early. Patient has remained asymptomatic throughout her episodes of elevated BP this afternoon.
[2023-03-26] MEDS: hydrALAZINE HCl 50 MG TABLET 100 MG PO (19:21)
[2023-03-26] MEDS: carvediloL 25 MG TABLET PO (19:21)
[2023-03-26 20:08] VITALS: BP 168/79; PULSE 80; RESP 18; TEMP 36.4; O2SAT 98
[2023-03-26 20:32] LABS: Glucose, Whole Blood 337 mg/dL (60-115)
--- NOTE | 2023-03-26 20:50 | PC.NURSE ---
patient due to void at 2114, bladder scanned now for 104ml, will continue to monitor
[2023-03-27] MEDS: HYDROmorphone HCl 1 MG/ML SYRINGE IVPUSH ×5 (02:04→19:18)
[2023-03-27 03:26] VITALS: BP 194/88; PULSE 73; RESP 16; TEMP 36.1; O2SAT 98
[2023-03-27] MEDS: hydrALAZINE HCl 20 MG/ML VIAL IVPUSH (03:39)
[2023-03-27 04:54] VITALS: BP 178/95
--- NOTE | 2023-03-27 05:11 | PC.NURSE ---
at 330 am bp 194/88 hydralazine 20 mg iv given as ordered prn ;rechecked bp in 1 hour 178/95 pt refused bps as ordered per protocol within the hour
[2023-03-27 07:47] VITALS: BP 149/96; PULSE 76; RESP 18; TEMP 36; O2SAT 98
[2023-03-27 07:53] LABS: Glucose, Whole Blood 217 mg/dL (60-115)
--- NOTE | 2023-03-27 08:26 | P.CDIM_ITS ---
PROVIDER RESPONSE TEXT: To clarify, the appropriate diagnosis supported by the clinical indicators: Acute QUERY TEXT: PHYSICIAN'S DOCUMENTATION REQUEST Date of Query: 03/26/2023 08:26 AM EST Patient Name: Shereen Taylor Admit Date: 03/25/2023 Dear Steve Shepherd, A review of the medical record indicates additional documentation may be needed. Please review below and update the documentation accordingly. Clinical Indicators: Progress note 03/25 - Plan: Hyperkalemia/metabolic acidosis resume dialysis lokelma as indicated stressed compliance Clarify which of the following accurately represents the acuity of the metabolic acidosis: Acute Acute on chronic Other (explain) Clinically unable to determine (explain) Thank you, Betsey Metz, CCS, CDIS Use of terms such as suspected, likely, concern for, or probable (associated with a specific diagnosi s that is being evaluated, monitored, or treated as if it exists) are acceptable and can be coded in the inpatient se tting, when documented at the time of discharge. Please use your independent medical judgment in providing your response. THIS QUERY IS PART OF THE PERMANENT MEDICAL RECORD
--- NOTE | 2023-03-27 08:26 | P.CDIM_ITS ---
PROVIDER RESPONSE TEXT: To clarify, the appropriate diagnosis supported by the clinical indicators: Diabetes mellitus Type 2 with hyperglycemia QUERY TEXT: PHYSICIAN'S DOCUMENTATION REQUEST Date of Query: 03/27/2023 07:56 AM EST Patient Name: Shereen Taylor Admit Date: 03/25/2023 Dear Steve Shepherd, A review of the medical record indicates additional documentation may be needed. Please review below and update the documentation accordingly. Clinical Indicators: LAB FINDINGS: POC glucose 337 H Insulin Please clarify the following regarding the Complications of Diabetes Mellitus (DM): Diabetes mellitus Type 2 with hyperglycemia Other Other (explain) Clinically unable to determine (explain) Thank you, Betsey Metz, CCS, CDIS Use of terms such as suspected, likely, concern for, or probable (associated with a specific diagnosi s that is being evaluated, monitored, or treated as if it exists) are acceptable and can be coded in the inpatient se tting, when documented at the time of discharge. Please use your independent medical judgment in providing your response. THIS QUERY IS PART OF THE PERMANENT MEDICAL RECORD
[2023-03-27] MEDS: Insulin Lispro 100 UNIT/ML 3 ML VIAL SUBCUT ×3 (08:33→21:35)
[2023-03-27] MEDS: 0.9 % Sodium Chloride Flush 3 ML SYRINGE IVFLUSH (08:34)
[2023-03-27] MEDS: Isosorbide Mononitrate 30 MG TAB.ER.24H PO (08:35)
[2023-03-27] MEDS: Lidocaine 4 % Patch ADH..PATCH 1 PATCH TRANSDERMA (08:35)
[2023-03-27] MEDS: cloNIDine HCL 0.1 MG TABLET 0.3 MG PO (08:36)
[2023-03-27] MEDS: Aspirin Enteric Coated 81 MG TABLET.DR PO (08:36)
[2023-03-27] MEDS: NIFEdipine ER 60 MG TAB.ER.24 PO (08:37)
[2023-03-27] MEDS: hydrALAZINE HCl 50 MG TABLET 100 MG PO ×2 (08:38→17:01)
[2023-03-27] MEDS: Losartan Potassium 50 MG TABLET PO (08:38)
[2023-03-27] MEDS: carvediloL 25 MG TABLET PO (08:38)
[2023-03-27] MEDS: Losartan Potassium 25 MG TABLET PO (08:45)
--- NOTE | 2023-03-27 11:01 | P.PNNP_ITS ---
Subjective Subjective Date of Service: 03/27/23 Interval history: seen and examined had HD yesterday Physical Exam 2 Vital Signs: Vital Signs: Last Vital Signs Temp 96.8 F 03/27/23 07:47 Pulse 76 03/27/23 07:47 Resp 18 03/27/23 07:47 BP 149/96 H 03/27/23 07:47 Pulse Ox 98 03/27/23 07:47 O2 Del Method Room Air 03/27/23 07:47 O2 Flow Rate 2 03/27/23 03:26 Oxygen Flow Rate 4 03/24/23 16:21 BMI result Body Mass Index 28.7 Const: General: no acute distress HEENT: Head: Yes normocephalic and Yes atraumatic Neck: Neck: Yes no JVD Resp: Auscultation: diminished lung sounds Cardio: Heart sounds: S1 normal heart sound present and S2 normal heart sound present GI: Palpation (GI): Soft to palpation and nontender Extrem: General: Yes no pedal edema Objective Data Labs 03/26/23 13:50 03/26/23 13:50 Labs: Laboratory Results - last 24 hr 03/26/23 03/26/23 03/26/23 13:30 13:50 16:47 WBC 4.6 L RBC 3.45 L Hgb 10.4 L Hct 32.2 L MCV 93.3 MCH 30.1 MCHC 32.3 RDW 15.2 Plt Count 200 MPV 11.6 Immature Gran % (Auto) 0.2 Neut % (Auto) 74.8 H Lymph % (Auto) 6.6 L [place] % (Auto) 13.8 H Eos % (Auto) 3.7 Baso % (Auto) 0.9 Lymph # (Auto) 0.3 L [place] # (Auto) 0.6 Eos # (Auto) 0.2 Baso # (Auto) 0.0 Abs Immat Gran (auto) 0.01 Absolute Neuts (auto) 3.4 Absolute Nucleated RBC 0.000 Nucleated RBC % (auto) 0.0 Sodium 130 L Potassium 3.7 Chloride 100 Carbon Dioxide 23 Anion Gap 11 L BUN 25 H Creatinine 2.99 H Estim Creat Clear Calc 28.4 Estimated GFR 18 POC Glucose 107 161 H Fasting Glucose 103 H Calcium 8.4 Total Bilirubin 0.9 AST 20 ALT 17 Alkaline Phosphatase 163 H Total Protein 8.1 H Albumin 3.2 L 03/26/23 03/27/23 20:11 07:46 WBC RBC Hgb Hct MCV MCH MCHC RDW Plt Count MPV Immature Gran % (Auto) Neut % (Auto) Lymph % (Auto) [place] % (Auto) Eos % (Auto) Baso % (Auto) Lymph # (Auto) [place] # (Auto) Eos # (Auto) Baso # (Auto) Abs Immat Gran (auto) Absolute Neuts (auto) Absolute Nucleated RBC Nucleated RBC % (auto) Sodium Potassium Chloride Carbon Dioxide Anion Gap BUN Creatinine Estim Creat Clear Calc Estimated GFR POC Glucose 337 H 217 H Fasting Glucose Calcium Total Bilirubin AST ALT Alkaline Phosphatase Total Protein Albumin Procedures Date of Service Date of Service: 03/27/23 Assessment & Plan Assessment and plan (1) End-stage renal disease (ESRD): Status: Acute (2) HFrEF (heart failure with reduced ejection fraction): Status: Acute (3) Anemia: Status: Inactive Plan s/p HD yesterday known ESRD on HD t-t-s followedy Dr Siddiqi nephrogenic anemia h/o HFrEF REC HD tomorrow no need for VIPUL renal diet phosphate binders Time Spent With Patient Time: Total time managing care of this patient today ____ minutes. Progress Note: Quality Stroke Does the patient have a stroke diagnosis?: No
[2023-03-27 11:24] LABS: Glucose, Whole Blood 117 mg/dL (60-115)
[2023-03-27] MEDS: ondansetron HCL 4 MG/2 ML VIAL IVPUSH (12:13)
[2023-03-27 16:00] VITALS: BP 105/54; PULSE 94; RESP 17; TEMP 36.9; O2SAT 97
[2023-03-27 16:47] LABS: Glucose, Whole Blood 222 mg/dL (60-115)
[2023-03-27 19:21] VITALS: BP 97/55; PULSE 68; RESP 17; TEMP 36; O2SAT 98
[2023-03-27 20:12] LABS: Glucose, Whole Blood 202 mg/dL (60-115)
[2023-03-27 23:55] VITALS: BP 91/47; PULSE 55
[2023-03-28] MEDS: 0.9 % Sodium Chloride Flush 3 ML SYRINGE IVFLUSH ×3 (00:28→16:42)
[2023-03-28] MEDS: HYDROmorphone HCl 1 MG/ML SYRINGE IVPUSH ×6 (01:02→21:00)
[2023-03-28 02:53] VITALS: BP 123/58; PULSE 67; RESP 18; TEMP 36.1; O2SAT 97
--- NOTE | 2023-03-28 07:27 | P.CDIM_ITS ---
PROVIDER RESPONSE TEXT: To clarify, the appropriate diagnosis supported by the clinical indicators: Hyponatremia QUERY TEXT: PHYSICIAN'S DOCUMENTATION REQUEST Date of Query: 03/27/2023 09:31 AM EST Patient Name: Shereen Taylor Admit Date: 03/25/2023 Dear Steve Shepherd, A review of the medical record indicates additional documentation may be needed. Please review below and update the documentation accordingly. Clinical Indicators: LAB FINDINGS: sodium 130 L fluids . Based on the above, is there a diagnosis that correlates with these lab findings: Hyponatremia Labs indicate a diagnosis of (please specify) Other (explain) Clinically unable to determine (explain) Thank you, Betsey Metz, CCS, CDIS Use of terms such as suspected, likely, concern for, or probable (associated with a specific diagnosi s that is being evaluated, monitored, or treated as if it exists) are acceptable and can be coded in the inpatient se tting, when documented at the time of discharge. Please use your independent medical judgment in providing your response. THIS QUERY IS PART OF THE PERMANENT MEDICAL RECORD
[2023-03-28 08:00] VITALS: BP 126/58; PULSE 73; RESP 18; TEMP 36.1; O2SAT 100
[2023-03-28 08:08] LABS: Glucose, Whole Blood 222 mg/dL (60-115)
[2023-03-28] MEDS: Insulin Lispro 100 UNIT/ML 3 ML VIAL SUBCUT ×2 (08:41→21:01)
[2023-03-28] MEDS: Aspirin Enteric Coated 81 MG TABLET.DR PO (08:42)
--- NOTE | 2023-03-28 11:01 | PM.DS ---
DS: Providers Provider Date of Service: 03/28/23 Date of admission: 03/24/23 22:31 Date of discharge: 03/28/23 Primary care physician: Abdon Beard MD Consults: 03/25/23 06:00 Consult to Wound Care Routine Reason for consultation: Chronic left plantar diabetic wound. Has provider been notified: Yes 03/25/23 13:43 Consult to Nephrology Stat Consulting Provider: Sylvain Ruiz Reason for consultation: ESRD on HD Has provider been notified: No DS: Diagnosis Discharge Diagnosis (1) End-stage renal disease (ESRD): Status: Acute (2) HFrEF (heart failure with reduced ejection fraction): Status: Acute (3) Anemia: Status: Inactive DS: Summary Hospital Course Hospital Course: 32 years old woman with past medical history significant for end-stage renal disease on hemodialysis (Tuesdays and -she does not like to get dialysis on Sunday), type 2 diabetes mellitus, retinopathy + blindness, chronic diabetic foot s/p bilateral TMA, CHF, uncontrolled diabetes and chronic hypoxic respiratory failure on 4 L/min via nasal cannula presents to the emergency department complaining of shortness of breath and left-sided chest pain over the last 3 days. Patient has had multiple hospitalization with similar presentation. She actually was discharged from the hospital for the same issue 3 days ago. She stated that the last time she got dialysis was Sunday before being discharged. Did not go to dialysis last . Patient said that this morning she fell after losing her balance. She landed on her left side. No head trauma reported. In the ED, she was found to have hypertension. She is requiring 4 liters/minute supplemental oxygen via nasal cannula which is her baseline. Last blood pressure is 174/104. Blood workup is remarkable for hyperkalemia, 6.[address] showed moderate size pleural effusion on the right and traced on the left with adjacent atelectasis. There is small cardiomegaly and pericardial effusion. Head CT scan showed no evidence of acute intracranial hemorrhage, edema or infarctions. C-spine CT scan showed no evidence of acute fracture or traumatic subluxation of the spine (mildly motion degraded exam). Hospital Course Admitted to general medical floor and urgently dialyze the night of admission. All home medicines were resumed and she was seen in consultation by Nephrology who added clonidine. She received dialysis x3 in the hospital on the day of discharge was dialyzed before discharge. At this point in time she is medically acceptable for discharge to home Time Attestation Discharge coordination time: Greater than 30 minutes Quality: Safe Use of Opioids Does Pt have an Active Cancer Diagnosis on the Problem List?: No Quality: Stroke Does the patient have a stroke diagnosis?: No Physical Exam Vital Signs: Vital Signs: Last Vital Signs Temp 97.0 F 03/28/23 08:00 Pulse 73 03/28/23 08:00 Resp 18 03/28/23 08:00 BP 126/58 L 03/28/23 08:00 Pulse Ox 100 03/28/23 08:00 O2 Del Method Nasal Cannula 03/28/23 08:00 O2 Flow Rate 2 03/28/23 08:00 Oxygen Flow Rate 4 03/24/23 16:21 BMI result Body Mass Index 28.7 Const: Other: Awake alert no acute distress Resp: Other: Clear to auscultation bilaterally no rales rhonchi or wheezes Cardio: Other: No S4; positive S1-S2; no S3 murmurs rubs or gallops GI: Other: Soft nontender nondistended normoactive bowel sounds Extrem: Other: No edema bilaterally DS: Data Data Completed and Pending Completed studies during hospitalization [Text1]: Procedures Detachment at Right Foot, Partial 1st Ray, Open Approach (03/01/20) Detachment at Right Foot, Partial 2nd Ray, Open Approach (03/01/20) Detachment at Right Foot, Partial 3rd Ray, Open Approach (03/01/20) Detachment at Right Foot, Partial 4th Ray, Open Approach (03/01/20) Detachment at Right Foot, Partial 5th Ray, Open Approach (03/01/20) Drainage of Right Pleural Cavity, Percutaneous Approach (01/14/21) Excision of Left Foot Skin, External Approach (03/10/23) Excision of Stomach, Pylorus, Via Natural or Artificial Opening Endoscopic, Diagnostic (08/27/22) Fluoroscopy of Superior Vena Cava, Guidance (08/14/22) Insertion of Infusion Device into Right Atrium, Percutaneous Approach (08/14/22) Insertion of Infusion Device into Superior Vena Cava, Percutaneous Approach (01/14/21) Insertion of Tunneled Vascular Access Device into Chest Subcutaneous Tissue and Fascia, Percutaneous Approach (08/14/22) Performance of Urinary Filtration, Intermittent, Less than 6 Hours Per Day (03/20/23) Removal of Infusion Device from Great Vessel, External Approach (01/14/21) Transfusion of Nonautologous Red Blood Cells into Peripheral Vein, Percutaneous Approach (04/22/22) Labs on day of discharge: Laboratory Results - last 24 hr 03/27/23 03/27/23 03/27/23 11:01 16:10 19:25 POC Glucose 117 H 222 H 202 H 03/28/23 08:02 POC Glucose 222 H Discharge Plan Discharge Anticipated Discharge Date/Time: 03/28/23 10:57 Patient Disposition: Home Health Service Discharge Diagnosis: Decompensated systolic CHF Referrals: Abdon Beard MD [Primary Care Provider] - 1 Week Discharge Medications: New clonidine HCl 0.1 mg Tablet 0.3 mg PO BID Qty: 60 0RF Protocol: Hold for SBP< HOLD for SBP < : 90 Continued isosorbide mononitrate 30 mg tablet extended release 24 hr 30 mg PO DAILY nifedipine 60 mg tablet extended release 24hr 60 mg PO DAILY lidocaine 5 % adhesive patch,medicated 1 patch topical DAILY oxycodone 5 mg tablet 5 mg PO Q6H PRN (Reason: severe pain) (DME) off loading boot Kit See Rx Instructions .Route Qty: 1 0RF Rx Instructions: As directed aspirin 81 mg Tablet,Delayed Release (Dr/Ec) 81 mg PO DAILY Qty: 30 0RF sevelamer carbonate 800 mg tablet 800 mg PO TID cholecalciferol (vitamin D3) 50 mcg (2,000 unit) capsule 50 mcg PO DAILY acetaminophen 325 mg tablet 650 mg PO Q4H PRN (Reason: mild pain) sodium bicarbonate 650 mg Tablet 650 mg PO TID Qty: 90 0RF carvedilol 25 mg tablet 25 mg PO BID Qty: 60 0RF Rx Instructions: must administer with a meal/food losartan 50 mg tablet 50 mg PO DAILY Qty: 30 0RF hydralazine 100 mg tablet 100 mg PO TID Qty: 90 0RF Discharge Orders: Discharge Order (Routine); Ordered 03/28/23 Ordered By: Steve Shepherd Diet: Advance to usual diet Activity on Discharge: As tolerated Stand Alone Forms: Patient Portal Discharge page Care Plan Goals: Resume all medicines as taken before hospital Health Concerns: Add clonidine twice daily as ordered Plan of Treatment: Follow-up with your commissioning editor as scheduled; units be compliant with dialysis Assessment: See discharge summary
--- NOTE | 2023-03-28 11:15 | MHC.CM.PN ---
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
[2023-03-28 11:37] LABS: Glucose, Whole Blood 144 mg/dL (60-115)
[2023-03-28 16:45] LABS: Glucose, Whole Blood 147 mg/dL (60-115)
[2023-03-28 16:52] VITALS: BP 133/6; PULSE 84; RESP 18; TEMP 36.3; O2SAT 99
--- NOTE | 2023-03-28 16:59 | PC.NURSE ---
Patient states she is not ready to go home today,feels very weak after dialysis,has pain,Dr. Shepherd notified,discharge cx for tonight ,patient informed
--- NOTE | 2023-03-28 17:01 | PC.NURSE ---
patient refused Heparin sc ,risks explained,encouraged activity and leg exercises
[2023-03-28 19:56] VITALS: BP 115/61; PULSE 81; RESP 16; TEMP 36.2; O2SAT 98
[2023-03-28 20:02] LABS: Glucose, Whole Blood 181 mg/dL (60-115)
[2023-03-28] MEDS: cloNIDine HCL 0.1 MG TABLET 0.3 MG PO (21:02)
[2023-03-29] MEDS: 0.9 % Sodium Chloride Flush 3 ML SYRINGE IVFLUSH ×2 (00:26→08:13)
[2023-03-29] MEDS: HYDROmorphone HCl 1 MG/ML SYRINGE IVPUSH ×4 (01:04→12:52)
[2023-03-29 01:34] VITALS: RESP 18
[2023-03-29 04:00] VITALS: BP 134/62; PULSE 77; RESP 16; TEMP 36.2; O2SAT 100
[2023-03-29 06:05] VITALS: RESP 18
[2023-03-29 08:00] VITALS: BP 129/89; PULSE 76; RESP 18; TEMP 36.1; O2SAT 100
[2023-03-29 08:10] LABS: Glucose, Whole Blood 241 mg/dL (60-115)
[2023-03-29] MEDS: Insulin Lispro 100 UNIT/ML 3 ML VIAL SUBCUT ×2 (08:12→12:05)
--- NOTE | 2023-03-29 09:18 | MHC.CM.PN ---
Addendum entered by Samantha Barron 03/29/23 09:54: IMM ADDRESSED Original Note: DP: PT HAS BEEN MEDICALLY CLEARED FOR DC HOME. PT TO [facility]UME [employer]. JEROME HARRISON UPDATED AND DC SUMMARY FAXED TO [phone]. SISTER REJI WILL BE IN TO P/U PT AT 1 PM. RN UPDATED.
[2023-03-29] MEDS: Aspirin Enteric Coated 81 MG TABLET.DR PO (09:24)
[2023-03-29] MEDS: cloNIDine HCL 0.1 MG TABLET 0.3 MG PO (09:24)
--- NOTE | 2023-03-29 10:20 | P.DS_ITS ---
DS: Providers Provider Date of Service: 03/29/23 Date of admission: 03/24/23 22:31 Date of discharge: 03/29/23 Primary care physician: Abdon Beard MD Consults: 03/25/23 06:00 Consult to Wound Care Routine Reason for consultation: Chronic left plantar diabetic wound. Has provider been notified: Yes 03/25/23 13:43 Consult to Nephrology Stat Consulting Provider: Sylvain Ruiz Reason for consultation: ESRD on HD Has provider been notified: No Attending physician on discharge: Efraín Weeks Discharging clinician: Angela Ulloa DS: Diagnosis Discharge Diagnosis (1) End-stage renal disease (ESRD): Status: Acute (2) HFrEF (heart failure with reduced ejection fraction): Status: Acute (3) Anemia: Status: Inactive DS: Summary Hospital Course Hospital Course: 32 years old woman with past medical history significant for end-stage renal disease on hemodialysis (Tuesdays and -she does not like to get dialysis on Sunday), type 2 diabetes mellitus, retinopathy + blindness, chronic diabetic foot s/p bilateral TMA, CHF, uncontrolled diabetes and chronic hypoxic respiratory failure on 4 L/min via nasal cannula presents to the emergency department complaining of shortness of breath and left-sided chest pain over the last 3 days. Patient has had multiple hospitalization with similar presentation. She actually was discharged from the hospital for the same issue 3 days ago. She stated that the last time she got dialysis was Sunday before being discharged. Did not go to dialysis last . Patient said that this morning she fell after losing her balance. She landed on her left side. No head trauma reported. In the ED, she was found to have hypertension. She is requiring 4 liters/minute supplemental oxygen via nasal cannula which is her baseline. Last blood pressure is 174/104. Blood workup is remarkable for hyperkalemia, 6.[address] showed moderate size pleural effusion on the right and traced on the left with adjacent atelectasis. There is small cardiomegaly and pericardial effusion. Head CT scan showed no evidence of acute intracranial hemorrhage, edema or infarctions. C-spine CT scan showed no evidence of acute fracture or traumatic subluxation of the spine (mildly motion degraded exam). Hospital Course Admitted to general medical floor and urgently dialyze the night of admission. All home medicines were resumed and she was seen in consultation by Nephrology who added clonidine. She received dialysis x3 in the hospital. At this point in time she is medically acceptable for discharge to home and is recommended to take all medications as prescribed and to attend dialysis as scheduled. Time Attestation Discharge coordination time: Greater than 30 minutes Quality: Safe Use of Opioids Does Pt have an Active Cancer Diagnosis on the Problem List?: No Quality: Stroke Does the patient have a stroke diagnosis?: No Physical Exam Vital Signs: Vital Signs: Last Vital Signs Temp 96.9 F 03/29/23 08:00 Pulse 76 03/29/23 08:00 Resp 18 03/29/23 08:00 BP 129/89 03/29/23 08:00 Pulse Ox 100 03/29/23 08:00 O2 Del Method Nasal Cannula 03/29/23 08:00 O2 Flow Rate 2 03/29/23 08:00 Oxygen Flow Rate 4 03/24/23 16:21 BMI result Body Mass Index 28.7 Const: General: cooperative, no acute distress, alert and awake Nutritional Appearance: average body habitus Orientation/consciousness: patient oriented x3 Cardio: Rate: regular rate GI: Inspection: No distended Palpation (GI): Soft to palpation Neuro: General: patient oriented x3 and moves all extremities DS: Data Data Completed and Pending Completed studies during hospitalization [Text1]: Procedures Detachment at Right Foot, Partial 1st Ray, Open Approach (03/01/20) Detachment at Right Foot, Partial 2nd Ray, Open Approach (03/01/20) Detachment at Right Foot, Partial 3rd Ray, Open Approach (03/01/20) Detachment at Right Foot, Partial 4th Ray, Open Approach (03/01/20) Detachment at Right Foot, Partial 5th Ray, Open Approach (03/01/20) Drainage of Right Pleural Cavity, Percutaneous Approach (01/14/21) Excision of Left Foot Skin, External Approach (03/10/23) Excision of Stomach, Pylorus, Via Natural or Artificial Opening Endoscopic, Diagnostic (08/27/22) Fluoroscopy of Superior Vena Cava, Guidance (08/14/22) Insertion of Infusion Device into Right Atrium, Percutaneous Approach (08/14/22) Insertion of Infusion Device into Superior Vena Cava, Percutaneous Approach (01/14/21) Insertion of Tunneled Vascular Access Device into Chest Subcutaneous Tissue and Fascia, Percutaneous Approach (08/14/22) Performance of Urinary Filtration, Intermittent, Less than 6 Hours Per Day (03/20/23) Removal of Infusion Device from Great Vessel, External Approach (01/14/21) Transfusion of Nonautologous Red Blood Cells into Peripheral Vein, Percutaneous Approach (04/22/22) Labs on day of discharge: Laboratory Results - last 24 hr 03/28/23 03/28/23 03/28/23 11:28 16:40 19:58 POC Glucose 144 H 147 H 181 H 03/29/23 08:03 POC Glucose 241 H Discharge Plan Discharge Anticipated Discharge Date/Time: 03/29/23 10:18 Patient Disposition: Home, Self-Care Discharge Diagnosis: Decompensated systolic CHF Referrals: Abdon Beard MD [Primary Care Provider] - 1 Week Discharge Medications: New clonidine HCl 0.1 mg Tablet 0.3 mg PO BID Qty: 60 0RF Protocol: Hold for SBP< HOLD for SBP < : 90 Continued isosorbide mononitrate 30 mg tablet extended release 24 hr 30 mg PO DAILY nifedipine 60 mg tablet extended release 24hr 60 mg PO DAILY lidocaine 5 % adhesive patch,medicated 1 patch topical DAILY oxycodone 5 mg tablet 5 mg PO Q6H PRN (Reason: severe pain) (DME) off loading boot Kit See Rx Instructions .Route Qty: 1 0RF Rx Instructions: As directed aspirin 81 mg Tablet,Delayed Release (Dr/Ec) 81 mg PO DAILY Qty: 30 0RF sevelamer carbonate 800 mg tablet 800 mg PO TID cholecalciferol (vitamin D3) 50 mcg (2,000 unit) capsule 50 mcg PO DAILY acetaminophen 325 mg tablet 650 mg PO Q4H PRN (Reason: mild pain) sodium bicarbonate 650 mg Tablet 650 mg PO TID Qty: 90 0RF carvedilol 25 mg tablet 25 mg PO BID Qty: 60 0RF Rx Instructions: must administer with a meal/food losartan 50 mg tablet 50 mg PO DAILY Qty: 30 0RF hydralazine 100 mg tablet 100 mg PO TID Qty: 90 0RF Discharge Orders: Discharge Order (Routine); Ordered 03/28/23 Ordered By: Steve Shepherd Diet: Advance to usual diet Activity on Discharge: As tolerated Stand Alone Forms: Patient Portal Discharge page Care Plan Goals: Resume all medicines as taken before hospital Health Concerns: Add clonidine twice daily as ordered Plan of Treatment: Follow-up with your community development technician as scheduled take all meds as prescribed continue dialysis as scheduled Assessment: See discharge summary
[2023-03-29 11:21] LABS: Glucose, Whole Blood 165 mg/dL (60-115)
== END 2023-03-29 12:58 | disposition home or self-care (01) | DRG 640 ==
LOC: HO.ED 18:42 → HO.EDOVER 22:45 → HO.IMC 23:04 → HO.S3 03-25 15:44
PROVIDERS: Hospitalist; Physician Assistant Medical; Admitting Provider Internal Medicine; Emergency Provider Emergency Medicine; PCP Internal Medicine; Visit Provider Physician Assistant Medical
DX: E87.70 Fluid overload, unspecified (principal); I50.23 Acute on chronic systolic (congestive) heart failure; N18.6 End stage renal disease; I13.2 Hypertensive heart and chronic kidney disease with heart failure and with stage 5 chronic kidney disease, or end stage renal disease; J96.11 Chronic respiratory failure with hypoxia; E87.21 Acute metabolic acidosis; D63.1 Anemia in chronic kidney disease; E87.5 Hyperkalemia; E11.22 Type 2 diabetes mellitus with diabetic chronic kidney disease; E87.1 Hypo-osmolality and hyponatremia; E11.65 Type 2 diabetes mellitus with hyperglycemia; Z99.81 Dependence on supplemental oxygen; Z91.158 Patient's noncompliance with renal dialysis for other reason; Z99.2 Dependence on renal dialysis; Z20.822 Contact with and (suspected) exposure to COVID-19; Z79.82 Long term (current) use of aspirin; Z79.899 Other long term (current) drug therapy
CPT/HCPCS: 36415; 70450; 71250; 72125; 80053; 81001; 82947; 83735; 84100; 84702; 85025; 87502; 87635; 90999; 93005; 99285; C1758; J0360; J1170; J2405

== ENCOUNTER → 2023-03-24 18:49 | Outpatient (BNV) | payer OTHER, SELFPAY | PROVIDERS: Admitting Provider Internal Medicine; Emergency Provider Emergency Medicine; Visit Provider Internal Medicine Cardiovascular Disease | DX: R94.31 Abnormal electrocardiogram [ECG] [EKG] (principal) | CPT/HCPCS: 93010 ==

== ENCOUNTER → 2023-03-24 22:31 | Outpatient (BNV) | payer OTHER, SELFPAY | PROVIDERS: Admitting Provider Internal Medicine; Emergency Provider Emergency Medicine; Visit Provider Internal Medicine | DX: I50.33 Acute on chronic diastolic (congestive) heart failure (principal); E87.70 Fluid overload, unspecified; N18.6 End stage renal disease; Z99.2 Dependence on renal dialysis; E87.20 Acidosis, unspecified; E87.5 Hyperkalemia | CPT/HCPCS: 99223; 99232; 99233; 99239 ==

== ENCOUNTER 2023-04-02 13:24 | Emergency (ER) | payer OTHER, SELFPAY ==
--- NOTE | ~2023-04-02 | XR_ITS ---
EXAMINATION: XR CHEST CLINICAL INFORMATION: CT chest 03/24/2023 COMPARISON: None available. TECHNIQUE: 2 views of the chest were obtained. FINDINGS: The lungs are well-expanded and clear. Heart size is enlarged. Pulmonary vascularity is normal. There is right central venous catheter with its tip in distal SVC. No gross bony abnormality seen. XR/XR chest 2V IMPRESSION: Unremarkable chest examination.
--- NOTE | 2023-04-02 13:26 | ECG_ITS ---
Test Reason : chest pain Blood Pressure : / mmHG Vent. Rate : 098 BPM Atrial Rate : 098 BPM P-R Int : 148 ms QRS Dur : 142 ms QT Int : 414 ms P-R-T Axes : 049 005 039 degrees QTc Int : 528 ms Normal sinus rhythm Possible Left atrial enlargement Right bundle branch block Abnormal ECG When compared with ECG of 24-MAR-2023 19:01, T wave inversion now evident in Anterior leads Referred By: Generic ED Physician Electronically Signed By:JASKARAN COOL
[2023-04-02 15:01] VITALS: BP 214/123; PULSE 91; RESP 20; TEMP 36.5; O2SAT 99; BMI 26.6
--- NOTE | 2023-04-02 15:02 | ED.GENADULT ---
HPI - General Adult General Chief complaint: Chest Pain Stated complaint: Chest pain that comes and goes Time Seen by Provider: 04/02/23 15:16 Source: patient, RN notes reviewed and old records reviewed Mode of arrival: EMS Limitations: no limitations History of Present Illness HPI narrative: 32-year-old female with past medical history significant for uncontrolled diabetes, diabetic retinopathy, blindnessend-stage renal disease on dialysis Sunday, , uncontrolled hypertension presents for evaluation of chest pain. patient has a long history of repeated ED visits for chest pain, vomiting. she is frequently admitted to the medical service that she is noncompliant with outpatient dialysis she reports that she has been sick for the last 3 days with worsening chest pain she states it feels like there is fluid around my chest. Denies any fevers, chills she reports her last dialysis session was 5 days ago on Sunday no other complaints or concerns at this time Related Data Home Medications Medication Instructions Recorded Confirmed isosorbide mononitrate 30 mg 30 mg PO DAILY 03/11/23 03/25/23 tablet,extended release 24 hr lidocaine 5 % topical patch 1 patch topical DAILY 03/11/23 03/25/23 nifedipine 60 mg tablet,extended 60 mg PO DAILY 03/11/23 03/25/23 release 24 hr oxycodone 5 mg tablet 5 mg PO Q6H PRN severe pain 03/11/23 03/25/23 acetaminophen 325 mg tablet 650 mg PO Q4H PRN mild pain 03/20/23 03/25/23 cholecalciferol (vitamin D3) 50 50 mcg PO DAILY 03/20/23 03/25/23 mcg (2,000 unit) capsule sevelamer carbonate 800 mg tablet 800 mg PO TID 03/20/23 03/25/23 Previous Rx's Medication Instructions Recorded aspirin 81 mg tablet,delayed 81 mg PO DAILY #30 tabs 01/29/23 release off loading boot #1 ea 03/14/23 carvedilol 25 mg tablet 25 mg PO BID #60 tabs 03/22/23 hydralazine 100 mg tablet 100 mg PO TID #90 tabs 03/22/23 losartan 50 mg tablet 50 mg PO DAILY #30 tabs 03/22/23 sodium bicarbonate 650 mg tablet 650 mg PO TID #90 tabs 03/22/23 clonidine HCl 0.1 mg tablet 0.3 mg PO BID #60 tabs 03/28/23 Allergies Allergy/AdvReac Type Severity Reaction Status Date / Time morphine [MORPHINE] Allergy Intermediate Itching Verified 03/24/23 16:53 azithromycin [From Zithromax] Allergy Hives Verified 03/24/23 16:53 gabapentin Allergy Facial Verified 03/24/23 16:53 Swelling tramadol Allergy Facial Verified 03/24/23 16:53 Swelling vancomycin Allergy Anaphylaxis Verified 04/02/23 15:01 Review of Systems Constitutional: Constitutional: Denies body ache(s), Denies chills and Denies fever(s) Cardiovascular: Cardiovascular: Reports chest pain and Denies dyspnea Respiratory: Respiratory: Denies cough and Denies dyspnea Gastrointestinal: Gastrointestinal: Denies abdominal pain, Reports nausea and Reports vomiting Musculoskeletal: Musculoskeletal: Reports back pain Integumentary/Breasts: Skin/Breast: Denies rash PMFSH Past Medical History Medical History (Updated 04/02/23 @ 21:04 by Michele Putnam) Diabetic foot Vomiting Renal failure Hypertension End-stage renal disease (ESRD) Anemia Hyperkalemia Metabolic acidosis HFrEF (heart failure with reduced ejection fraction) ESRD on dialysis Migraine Diabetic foot ulcer associated with type 2 diabetes mellitus Chronic pain Gastroparesis Non-compliance with renal dialysis Hypertension Hypertensive emergency Diabetes ESRD needing dialysis Cardiomyopathy delivery delivered Anemia in chronic kidney disease (CKD) CKD (chronic kidney disease) Headache, migraine Abnormal finding on echocardiogram Elevated troponin Chest pain Acute worsening of stage 3 chronic kidney disease Generalized edema Sepsis Cellulitis Pleural effusion CHF (congestive heart failure) (~06/07/22) Tachycardia Atypical chest pain Bone infection PAD (peripheral artery disease) Severe anemia Cellulitis and abscess of foot DM foot ulcer Osteomyelitis test positive test positive Asthma Depression with anxiety Diabetic retinopathy Type 2 diabetes mellitus with hyperglycemia, with long-term current use of insulin Blind right eye Diabetes Back pain Surgical History 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 Family History Family History Mother Coronary artery disease Myocardial infarction Stroke Diabetes mellitus Father Myocardial infarction Social History Social History Household Members: Family Household Members Other:: Sister, [id number], nephew Housing: Apartment Do you presently have visiting nurse or other home services: No Unable to assess alcohol history related to: Unknown Alcohol intake: never Comment: refuses camera Patient Tobacco Use Status: Never used Tobacco Smoked in Last 30 Days: No e-Cigarette/Vaping Use: Never Used Second Hand Smoke Exposure: No Use of substances other than those prescribed or required for medical reasons: No Advance Directives: Yes Advance Directives on File: Yes Advance Directives Date on File: 03/08/20 service: No Current occupational status: unemployed and disabled Gender identity: Female Physical Exam ED Vital Signs: Vital Signs - 24 hr 04/02/23 15:01 04/02/23 19:28 04/02/23 21:34 Temperature 97.7 F 97.9 F 97.9 F Pulse Rate 91 91 96 Respiratory Rate 20 14 12 Blood Pressure 214/123 H 198/113 H Pulse Oximetry 99 99 95 Oxygen Delivery Method Room Air Room Air Room Air BMI result Body Mass Index 26.6 Const General: healthy appearing, comfortable, no acute distress, alert and awake Nutritional Appearance: well nourished Orientation/consciousness: patient oriented x3 HENMT Head: Yes normocephalic and Yes atraumatic Eyes Visual Bynum: visual bynum abnormal by confrontation Periorbital: periorbital findings normal Pupils: pupils not ERRL Neck Neck: Yes full ROM Resp Effort & Inspection: normal respiratory effort, able to speak in complete sentences, no audible wheezes and not labored Auscultation: clear to auscultation bilaterally Cardio Rate: regular rate Rhythm: regular rhythm GI Inspection: No distended Palpation (GI): Soft to palpation, not firm, Tenderness to palpation present (GI), Guarding due to palpation present (GI) and not rigid Auscultation: normoactive bowel sounds Skin General skin exam: elasticity normal Neuro General: patient oriented x3 Cranial nerves: No Equal, round and reactive pupils present and Yes Bilaterally intact EOM present Cognition (Neuro): normal cognition Extrem Other: Moving all extremities well without any obvious deformities Course Course Course Narrative: This is an RME: Additional HPI, ROS, PE not included below will be deferred to primary provider. 32 year old assigned female with a history of CKD requiring dialysis, HTN, and heart failure chronically on 4 liters of oxygen via nasal canula, presenting to the emergency department today with chest pain, shortness of breath x 3 days. Pain worsened today. She was just discharged on 03/29/2023 after being admitted for end-stage renal disease, heart failure, and anemia. She was admitted to the general medical floor and was urgently dialyzed, she had a pleural effusion the right and trace on the left with adjacent atelectasis. Small cardiomegaly and pericardial effusion. Blood pressure 214/123, patient appears uncomfortable secondary to pain. Patient will be brought back to the main emergency department urgently given crushing chest pain and hypertension. Plan: EKG, chest x-ray, labs Reevaluation(s) Reevaluation #1: Discussed patient's workup with Nephrology, Dr. Siddiqi. I do not see any indication to admit the patient for emergent dialysis and she is scheduled for the morning. Dr. Siddiqi agrees with this disposition and the patient can be discharged to follow-up tomorrow morning Time: 21:03 Reevaluation #2: Patient's blood pressure had improved to 190 8/113, however upon waiting for transport he had increased back up to 220/120 per EMS. They had concerns about transport the patient back home with a blood pressure that elevated. On review of her medical history, her blood pressure is frequently elevated that high and that is likely at or around her baseline. I discussed with attending, Dr Plascencia muscle felt the patient was stable for discharge and the patient was ultimately discharged home Time: 22:48 Medications Administered Discontinued Medications Generic Name Dose Route Start Last Admin Trade Name Freq PRN Reason Stop Dose Admin Acetaminophen 650 mg 04/02/23 21:43 04/02/23 21:49 Acetaminophen 325 Mg Tablet PO 04/02/23 21:44 650 mg ONCE ONE Administration Hydralazine HCl 10 mg 04/02/23 18:00 04/02/23 18:35 Hydralazine Hcl 20 Mg/Ml Vial IVPUSH 04/02/23 18:01 10 mg ONCE ONE Administration Protocol Hydromorphone HCl 1 mg 04/02/23 18:00 04/02/23 18:38 Hydromorphone Hcl 1 Mg/Ml Syringe IVPUSH 04/02/23 18:01 1 mg ONCE ONE Administration Protocol Ondansetron HCl 4 mg 04/02/23 18:00 04/02/23 18:35 Ondansetron Hcl 4 Mg/2 Ml Vial IVPUSH 04/02/23 18:01 4 mg ONCE ONE Administration Medical Decision Making Medical Decision Making [facility] Narrative: 32-year-old female presents for evaluation of chest pain. She has multiple ED visits and admissions for similar complaints. Her blood pressure is elevated to 214 over 123. Her chest x-ray is clear, no evidence of acute CHF. She has a chronic anemia consistent with history of renal disease. Her potassium is 5.0. Her troponin is 23.4 and is chronically elevated. Patient's symptoms are most likely related to her history of renal disease and noncompliance with dialysis. Will attempt to control the blood pressure and will discuss with nephrology. Differential Diagnosis Differential Diagnoses: The differential diagnosis associated with the presentation includes Congestive heart failure Hyperkalemia Fluid overload CHF Noncompliance ACS less likely Admission/Observation Consideration of admission/observation: Escalation of care including admission/observation considered Lab Data [facility] Lab Attestation statement: I reviewed the patient's lab results. see above 04/02/23 16:39 04/02/23 16:39 Labs: Lab Results 04/02/23 04/02/23 Range/Units 16:39 16:56 WBC 3.9 L (4.8-10.8) X10*3/uL RBC 3.27 L (4.20-5.50) X10*6/uL Hgb 9.9 L (12.0-16.0) g/dl Hct 29.6 L (37.0-47.0) % MCV 90.5 (80.0-98.0) fL MCH 30.3 (27.0-33.0) pg MCHC 33.4 (31.0-35.0) g/dl RDW 14.2 (11.0-16.0) % Plt Count 175 (160-400) X10*3/uL MPV 11.7 (9.4-12.3) fL Immature Gran % (Auto) 0.3 (0.0-0.4) % Neut % (Auto) 68.6 (45-73) % Lymph % (Auto) 14.8 L (20-40) % [place] % (Auto) 10.7 (2-11) % Eos % (Auto) 4.8 H (0-4) % Baso % (Auto) 0.8 (0-2) % Lymph # (Auto) 0.6 L (1.2-4.9) X10*3/uL [place] # (Auto) 0.4 (0.1-1.2) X10*3/uL Eos # (Auto) 0.2 (0.0-0.4) X10*3/uL Baso # (Auto) 0.0 (0.0-0.2) X10*3/uL Abs Immat Gran (auto) 0.01 (0.00-0.03) X10*3/uL Absolute Neuts (auto) 2.7 (2.0-8.3) x10*3/uL Absolute Nucleated RBC 0.000 (0.0-0.012) X10*3/uL Nucleated RBC % (auto) 0.0 (0.0-0.2) /100WBC Sodium 134 L (135-145) mmol/L Potassium 5.0 D (3.3-5.1) mmol/L Chloride 107 (96-108) mmol/L Carbon Dioxide 14 L (22-29) mmol/L Anion Gap 18 (12-20) BUN 78 H (9-16) mg/dL Creatinine 6.47 H* (0.5-1.4) mg/dL Estim Creat Clear Calc 12.7 Estimated GFR 7 Random Glucose 112 (60-115) mg/dL Calcium 8.7 (8.4-10.2) mg/dL Magnesium 2.3 (1.6-2.6) mg/dL Total Bilirubin 1.0 (0.0-1.0) mg/dL Direct Bilirubin 0.4 (0.0-0.5) mg/dL AST 24 (5-31) U/L ALT 16 (0-31) U/L Alkaline Phosphatase 159 H (39-117) U/L Troponin I High Sens 23.4 H D (<3.5-17.0) ng/L Total Protein 8.5 H (6.5-8.0) g/dL Albumin 3.5 (3.5-5.0) g/dL Lipase 31 (8-78) U/L COVID-19 ([facility]) Negative (Negative) COVID-19 Clin Com See Note Influenza Type A ([facility]) Negative (Negative) Influenza Type B ([facility]) Negative (Negative) Influenza A & B Note See Note Independent Interpretation I performed an independent interpretation of an: EKG ( normal sinus rhythm rate 98 beats minute.) and Plain X-Ray ( enlarged heart, no pleural effusions) Discharge Plan Discharge Clinical Impression: Chronic kidney disease, Hypertension Patient Disposition: Home, Self-Care Instructions: Chronic Kidney Disease (ED) Additional Instructions: Your workup in the ER today was reassuring. Your potassium was within normal limits, your chest x-ray was clear. Nephrology recommends that you follow-up with your dialysis appointment tomorrow morning, it is important that you do not miss this appointment Return for new or worsening symptoms Prescriptions: No Action isosorbide mononitrate 30 mg tablet extended release 24 hr 30 mg PO DAILY nifedipine 60 mg tablet extended release 24hr 60 mg PO DAILY lidocaine 5 % adhesive patch,medicated 1 patch topical DAILY oxycodone 5 mg tablet 5 mg PO Q6H PRN (Reason: severe pain) (DME) off loading boot Kit See Rx Instructions .Route Qty: 1 0RF Rx Instructions: As directed aspirin 81 mg Tablet,Delayed Release (Dr/Ec) 81 mg PO DAILY Qty: 30 0RF sevelamer carbonate 800 mg tablet 800 mg PO TID cholecalciferol (vitamin D3) 50 mcg (2,000 unit) capsule 50 mcg PO DAILY acetaminophen 325 mg tablet 650 mg PO Q4H PRN (Reason: mild pain) sodium bicarbonate 650 mg Tablet 650 mg PO TID Qty: 90 0RF carvedilol 25 mg tablet 25 mg PO BID Qty: 60 0RF Rx Instructions: must administer with a meal/food losartan 50 mg tablet 50 mg PO DAILY Qty: 30 0RF hydralazine 100 mg tablet 100 mg PO TID Qty: 90 0RF clonidine HCl 0.1 mg Tablet 0.3 mg PO BID Qty: 60 0RF Protocol: Hold for SBP< HOLD for SBP < : 90
[2023-04-02 16:43] LABS: MANUAL DIFF FLAG NO
[2023-04-02 16:45] LABS: Basophils Percent Auto 0.8 % (0-2); Eosinophils Absolute Auto 0.2 X10*3/uL (0.0-0.4); Eosinophils Percent Auto 4.8 % (0-4); Hematocrit 29.6 % (37.0-47.0); Hemoglobin 9.9 g/dl (12.0-16.0); Imm Gran Abs Auto 0.01 X10*3/uL (0.00-0.03); Imm Gran Pct Auto 0.3 % (0.0-0.4); Lymphocytes Absolute Auto 0.6 X10*3/uL (1.2-4.9); Lymphocytes Percent Auto 14.8 % (20-40); Mean Corpuscular HGB Conc 33.4 g/dl (31.0-35.0); Mean Corpuscular Hemoglobin 30.3 pg (27.0-33.0); Mean Corpuscular Volume 90.5 fL (80.0-98.0); Mean Platelet Volume 11.7 fL (9.4-12.3); Monocytes Absolute Auto 0.4 X10*3/uL (0.1-1.2); Monocytes Percent Auto 10.7 % (2-11); Neutrophils Absolute Auto 2.7 x10*3/uL (2.0-8.3); Neutrophils Percent Auto 68.6 % (45-73); Platelet Count 175 X10*3/uL (160-400); Red Blood Count 3.27 X10*6/uL (4.20-5.50); Red Cell Distribution Width 14.2 % (11.0-16.0); White Blood Count 3.9 X10*3/uL (4.8-10.8)
[2023-04-02 17:06] LABS: Troponin-I High Sensitivity 23.4 ng/L (<3.5-17.0)
[2023-04-02 17:16] LABS: Alanine Aminotransferase 16 U/L (0-31); Albumin Level 3.5 g/dL (3.5-5.0); Alkaline Phosphatase 159 U/L (39-117); Anion Gap 18 (12-20); Aspartate Amino Transferase 24 U/L (5-31); Bilirubin Direct 0.4 mg/dL (0.0-0.5); Blood Urea Nitrogen 78 mg/dL (9-16); Calcium 8.7 mg/dL (8.4-10.2); Carbon Dioxide 14 mmol/L (22-29); Chloride 107 mmol/L (96-108); Creatinine Clr Calc Pharmacy 12.7; Estimated Glomerular Filt Rate 7; Glucose Random 112 mg/dL (60-115); Lipase 31 U/L (8-78); Magnesium 2.3 mg/dL (1.6-2.6); Sodium 134 mmol/L (135-145); Total Protein 8.5 g/dL (6.5-8.0)
[2023-04-02 17:52] LABS: COVID-19 Test Negative (Negative); IDNOW Serial# 08D9AD1C; IDNOW Serial# 152EDE1D; Influenza A Negative (Negative); Influenza B2 Negative (Negative)
[2023-04-02] MEDS: hydrALAZINE HCl 20 MG/ML VIAL 10 MG IVPUSH (18:35)
[2023-04-02] MEDS: ondansetron HCL 4 MG/2 ML VIAL IVPUSH (18:35)
[2023-04-02] MEDS: HYDROmorphone HCl 1 MG/ML SYRINGE IVPUSH (18:38)
[2023-04-02 19:28] VITALS: BP 198/113; PULSE 91; RESP 14; TEMP 36.6; O2SAT 99
--- NOTE | 2023-04-02 19:38 | PC.NURSE ---
rechecked bp 198/113 this rn made dennis calos aware no new orders at this time
[2023-04-02 21:34] VITALS: PULSE 96; RESP 12; TEMP 36.6; O2SAT 95
[2023-04-02] MEDS: Acetaminophen 325 MG TABLET 650 MG PO (21:49)
[2023-04-02 22:15] VITALS: BP 219/121
--- NOTE | 2023-04-02 22:21 | PC.NURSE ---
per dennis calos pt safe for discharge. pt reports pain pt medicated with po tylenol pt had no additional episodes of nausea/vomiting. pt states i'm just going to come right back this rn made calos and charge aware of this. Iv removed at discharge report provided to ems prior to transport for ems bp 219/121 this rn made dennis coley aware per brijesh pt remains up for discharge extension service specialist in charge aware- orders placed for po meds
--- NOTE | 2023-04-02 22:46 | PC.NURSE ---
this rn attempted to medicate BP with po clonidine pt immediately vomited this rn made dennis calos aware unable to medicate po. ems refusing to take pt with bp over 200. calos to bedside to discuss with ems and medic registered nurse supervisor . calos dennis and dr king state pt is medically cleared for discharge home weigh and charge worker aware of situation
--- NOTE | 2023-04-02 22:59 | PC.NURSE ---
pt provided with discharge packet pt refused to acknowledge this rn during discharge instruction. dennis calos and dr king determined pt safe for discharge. informed medic supervisor locomotive and ems pt okay for discharge signature provided to ems by md and calos charge auditor aware
== END 2023-04-02 23:03 | disposition home or self-care (01) ==
PROVIDERS: Physician Assistant Medical; Emergency Provider Emergency Medicine; PCP Internal Medicine
DX: R07.89 Other chest pain (principal); I12.9 Hypertensive chronic kidney disease with stage 1 through stage 4 chronic kidney disease, or unspecified chronic kidney disease; E11.22 Type 2 diabetes mellitus with diabetic chronic kidney disease; N18.9 Chronic kidney disease, unspecified; Z99.2 Dependence on renal dialysis; Z79.899 Other long term (current) drug therapy; Z11.52 Encounter for screening for COVID-19
CPT/HCPCS: 36415; 71046; 80048; 80076; 83690; 83735; 84484; 85025; 87502; 87635; 93005; 99284; J0360; J1170; J2405

== ENCOUNTER → 2023-04-02 13:26 | Outpatient (BNV) | payer OTHER, SELFPAY | PROVIDERS: PCP Internal Medicine; Visit Provider Internal Medicine | DX: R94.31 Abnormal electrocardiogram [ECG] [EKG] (principal) | CPT/HCPCS: 93010 ==

== ENCOUNTER 2023-04-05 13:35 | Outpatient (AMB) | payer OTHER, SELFPAY ==
[2023-04-05 13:37] VITALS: BP 190/110; PULSE 97; BMI 26.3
--- NOTE | 2023-04-05 13:37 | A.OFFVIS_ITS ---
Intake Vital Signs 04/05/23 13:37 Height 5 ft 6 in Weight 163 lb 2.273 oz BMI 26.3 BP 190/110 H Blood Pressure Location Lt brachial Position Sitting Pulse 97 Intake Visit Reasons: Re-Ref non-healing wound s/p art US Intake Note: Follow-up non-healing wound after US c/o wound on both feet one is new from yesterday Drapery Hemmer Automatic Required: No Electrogalvanizing Machine Operator: Electrogalvanizing Machine Operator Present Accompanied by: boyfriend Allergies morphine [MORPHINE] Allergy (Intermediate, Verified 03/24/23 16:53) Itching azithromycin [From Zithromax] Allergy (Verified 03/24/23 16:53) Hives gabapentin Allergy (Verified 03/24/23 16:53) Facial Swelling tramadol Allergy (Verified 03/24/23 16:53) Facial Swelling vancomycin Allergy (Verified 04/02/23 15:01) Anaphylaxis HPI Re-Ref non-healing wound s/p art US HPI Details Extremely noncompliant 32-year-old female presents for follow-up evaluation regarding nonhealing bilateral lower extremity ulcers. She had undergone a right-sided transmetatarsal amputation in February of 2020. In addition she has had the left great toe amputated. She would presented to the emergency room in early February and noted that she had some vascular disease on left lower extremity noninvasive testing. She now presents to us for follow-up. Of note she is on a Sunday dialysis regimen. [facility] Medical History (Updated 04/05/23 @ 16:03 by Nomi Arias MD) Diabetic foot Vomiting Renal failure Hypertension End-stage renal disease (ESRD) Anemia Hyperkalemia Metabolic acidosis HFrEF (heart failure with reduced ejection fraction) ESRD on dialysis Migraine Diabetic foot ulcer associated with type 2 diabetes mellitus Chronic pain Gastroparesis Non-compliance with renal dialysis Hypertension Hypertensive emergency Diabetes ESRD needing dialysis Cardiomyopathy delivery delivered Anemia in chronic kidney disease (CKD) CKD (chronic kidney disease) Headache, migraine Abnormal finding on echocardiogram Elevated troponin Chest pain Acute worsening of stage 3 chronic kidney disease Generalized edema Sepsis Cellulitis Pleural effusion CHF (congestive heart failure) (~06/07/22) Tachycardia Atypical chest pain Bone infection PAD (peripheral artery disease) Severe anemia Cellulitis and abscess of foot DM foot ulcer Osteomyelitis test positive test positive Asthma Depression with anxiety Diabetic retinopathy Type 2 diabetes mellitus with hyperglycemia, with long-term current use of insulin Blind right eye Diabetes Back pain Surgical History 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 Family History Mother Coronary artery disease Myocardial infarction Stroke Diabetes mellitus Father Myocardial infarction Social History Household Members: Family Household Members Other:: Sister, [id number], nephew Housing: Apartment Do you presently have visiting nurse or other home services: No Unable to assess alcohol history related to: Unknown Alcohol intake: never Comment: refuses camera Patient Tobacco Use Status: Never used Tobacco e-Cigarette/Vaping Use: Never Used Second Hand Smoke Exposure: No Advance Directives Date on File: 03/08/20 service: No Current occupational status: unemployed and disabled Gender identity: Female Female Reproductive History Menstrual Age of Menarche: 8 Review of Systems Const All systems reviewed & are unremarkable except as noted in HPI and below Reports no additional complaints ENT Reports Normal hearing present Card Denies chest pain, Denies chest pain at rest, Denies chest pain with activity and Denies pedal edema Resp Denies cough GI Denies abdominal pain Musc Denies abnormal gait, Denies muscle cramps and Denies radiating pain into limb Skin/Breast Denies skin ulcer and Denies wounds Neuro Reports Normal hearing present and Denies abnormal gait Psych Reports no additional complaints Physical Exam Vital Signs: Last Vital Signs Pulse 97 04/05/23 13:37 BP 190/110 H 04/05/23 13:37 BMI result Body Mass Index 26.3 Const General: cooperative, healthy appearing and comfortable Orientation/consciousness: oriented to person, oriented to place and oriented to time HEENT Head: Yes normal to inspection Neck Neck: Yes normal visual inspection Carotids: no bruits Chest Chest palpation & inspection: normal inspection of the chest Resp Effort & Inspection: normal respiratory effort and able to speak in complete se ntences Auscultation: clear to auscultation bilaterally, no crackles, no rales, no rhonchi and no wheezes Cardio Rate: regular rate Rhythm: regular rhythm Heart sounds: S1 normal heart sound present and S2 normal heart sound present Bruits: no carotid bruits Peripheral pulses: Peripheral pulses 2+ throughout GI Inspection: Yes normal to inspection Skin Other: Right trans met nonhealing Left foot plantar surface ulcer Wounds: no wounds Hair: normal Neuro General: oriented to person, oriented to place and oriented to time Cranial nerves: Yes CN's II-XII intact bilaterally and Yes Normal hearing present Cognition (Neuro): normal cognition Motor exam (neuro): 5/5 motor strength present throughout Extrem Other: venous exam: No significant superficial varicosities or spider telangiectasias, minimal edema General: No clubbing, No cyanosis and No edema Psych Appearance: grossly normal Mental Status: mental status grossly normal Speech and movement: Normal speech and movement present Results Reviewed Results Reviewed: Arterial testing dated 03/07/2023 demonstrates significant tibial disease. Assessment & Plan Assessment & Plan (1) PAD (peripheral artery disease): Code(s): I73.9 - Peripheral vascular disease, unspecified Plan: In short patient has significant peripheral vascular disease. In order to better elucidate where the disease is I have taken the liberty of ordering CT angiogram. She will follow up with us after testing. We can better coordinate and plan for further intervention from there. Thank you for allowing us to assist in her care. If there are any questions or concerns please do not hesitate to contact us. Orders: Orders Blood Urea Nitrogen Today I73.9 - Peripheral vascular disease, unspecified Creatinine Today I73.9 - Peripheral vascular disease, unspecified CT angio abd aorta runoff 1 Week I73.9 - Peripheral vascular disease, unspecified Coding Level of Care Code Est Pt Level 4 (93486) Diagnoses PAD (peripheral artery disease) I73.9
== END 2023-04-05 14:10 | disposition home or self-care (01) ==
PROVIDERS: Visit Provider Surgery Vascular Surgery
DX: I73.9 Peripheral vascular disease, unspecified (principal)
CPT/HCPCS: 99213

== ENCOUNTER → 2023-04-05 13:35 | Outpatient (BNVA) | payer OTHER, SELFPAY | PROVIDERS: Visit Provider Surgery Vascular Surgery | DX: I73.9 Peripheral vascular disease, unspecified (principal) | CPT/HCPCS: 99212 ==

== ENCOUNTER 2023-04-10 14:40 | Emergency (ER) | payer OTHER, SELFPAY ==
--- NOTE | ~2023-04-10 | XR_ITS ---
EXAMINATION: XR CHEST CLINICAL INFORMATION: Shortness of breath COMPARISON: 04/02/2023 TECHNIQUE: Frontal view of the chest was obtained. FINDINGS: Right-sided tunneled catheter with tip in the distal superior vena cava. Stable enlargement of the cardiac silhouette. Low lung volumes. No focal consolidation. No pleural effusion or pneumothorax. No acute osseous abnormality. XR/XR chest 1V IMPRESSION: 1. Low lung volumes. No focal consolidation. 2. Stable cardiomegaly.
[2023-04-10 15:18] VITALS: BP 150/78; BP 216/123; PULSE 102; RESP 32; TEMP 36.5; O2SAT 96; BMI 29.9
--- NOTE | 2023-04-10 16:25 | ECG_ITS ---
Test Reason : CHEST PAIN Blood Pressure : / mmHG Vent. Rate : 097 BPM Atrial Rate : 097 BPM P-R Int : 158 ms QRS Dur : 144 ms QT Int : 414 ms P-R-T Axes : 060 -14 044 degrees QTc Int : 525 ms Normal sinus rhythm Possible Left atrial enlargement Right bundle branch block Abnormal ECG When compared with ECG of 02-APR-2023 13:30, Nonspecific T wave abnormality, worse in Lateral leads Referred By: Helen Pal Electronically Signed By:Vinny Vera
--- NOTE | 2023-04-10 16:28 | ED.CHESTPAIN ---
HPI - Chest Pain General Chief Complaint: Chest Pain Stated Complaint: chest pain/blind Time Seen by Provider: 04/10/23 16:17 Source: patient Mode of arrival: EMS Limitations: no limitations History of Present Illness HPI narrative: Patient comes to the emergency room complaining of nausea and vomiting, stating that she did not go to dialysis today because she was not feeling well. Patient states that she is supposed to get dialysis on Sunday and Saturdays. Patient usually skips Saturdays because she does not like to go to dialysis on the weekends. Patient known to be noncompliant with dialysis and medications. Patient states that she has left-sided chest pain that started around midnight, almost 17 hours ago. Per EMS, patient refused an IV. Related Data Home Medications Medication Instructions Recorded Confirmed isosorbide mononitrate 30 mg 30 mg PO DAILY 03/11/23 03/25/23 tablet,extended release 24 hr lidocaine 5 % topical patch 1 patch topical DAILY 03/11/23 03/25/23 nifedipine 60 mg tablet,extended 60 mg PO DAILY 03/11/23 03/25/23 release 24 hr oxycodone 5 mg tablet 5 mg PO Q6H PRN severe pain 03/11/23 03/25/23 acetaminophen 325 mg tablet 650 mg PO Q4H PRN mild pain 03/20/23 03/25/23 cholecalciferol (vitamin D3) 50 50 mcg PO DAILY 03/20/23 03/25/23 mcg (2,000 unit) capsule sevelamer carbonate 800 mg tablet 800 mg PO TID 03/20/23 03/25/23 Previous Rx's Medication Instructions Recorded aspirin 81 mg tablet,delayed 81 mg PO DAILY #30 tabs 01/29/23 release off loading boot #1 ea 03/14/23 carvedilol 25 mg tablet 25 mg PO BID #60 tabs 03/22/23 hydralazine 100 mg tablet 100 mg PO TID #90 tabs 03/22/23 losartan 50 mg tablet 50 mg PO DAILY #30 tabs 03/22/23 sodium bicarbonate 650 mg tablet 650 mg PO TID #90 tabs 03/22/23 clonidine HCl 0.1 mg tablet 0.3 mg PO BID #60 tabs 03/28/23 Allergies Allergy/AdvReac Type Severity Reaction Status Date / Time morphine [MORPHINE] Allergy Intermediate Itching Verified 03/24/23 16:53 azithromycin [From Zithromax] Allergy Hives Verified 03/24/23 16:53 gabapentin Allergy Facial Verified 03/24/23 16:53 Swelling tramadol Allergy Facial Verified 03/24/23 16:53 Swelling vancomycin Allergy Anaphylaxis Verified 04/02/23 15:01 Review of Systems Review of Systems: Constitutional : No Weight loss, No Fever, No Chills, No Night Sweats, No Fatigue, No Malaise ENT/Mouth : No Hearing loss, No Ear Pain, No Nasal Congestion, No Sinus Pain, No Hoarseness, No sore throat, No Rhinorrhea, No Swallowing Difficulty Eyes: No Eye Pain, No Swelling, No Redness, No Foreign Body, No Discharge, No Vision Changes Cardiovascular : Complaining of chest pain for 17 hours, No SOB, No Dyspnea on Exertion, No Orthopnea, No Edema, No Palpitations Respiratory : No Cough, No Sputum, No Wheezing, No Smoke Exposure, No Dyspnea Gastrointestinal : No Nausea, No Vomiting, No Diarrhea, No Constipation, No abdominal Pain, No Hematochezia, No Melena Genitourinary : no irregular bleeding, No Dysuria, No Urinary Frequency, No Hematuria, No Urinary Incontinence, No Urgency, No Flank Pain, No Urinary Flow Changes, No Hesitancy Musculoskeletal : No joint pain, No Myalgias, No Joint Swelling Skin : No Skin Lesions, No rash Neuro : No Weakness, No Numbness, No Paresthesias, No Loss of Consciousness, No Dizziness, No Headache Psych : No Anxiety/Panic, No Depression, No SI/HI/AH/VH, No Social Issues, Heme/Lymph: No Bruising, No Bleeding,No Lymphadenopathy Endocrine : No Polyuria, No Polydipsia, No Temperature Intolerance [facility] Past Medical History Medical History (Updated 04/10/23 @ 21:30 by Helen Pal MD) Diabetic foot Vomiting Renal failure Hypertension End-stage renal disease (ESRD) Anemia Hyperkalemia Metabolic acidosis HFrEF (heart failure with reduced ejection fraction) ESRD on dialysis Migraine Diabetic foot ulcer associated with type 2 diabetes mellitus Chronic pain Gastroparesis Non-compliance with renal dialysis Hypertension Hypertensive emergency Diabetes ESRD needing dialysis Cardiomyopathy delivery delivered Anemia in chronic kidney disease (CKD) CKD (chronic kidney disease) Headache, migraine Abnormal finding on echocardiogram Elevated troponin Chest pain Acute worsening of stage 3 chronic kidney disease Generalized edema Sepsis Cellulitis Pleural effusion CHF (congestive heart failure) (~04/12/23) Tachycardia Atypical chest pain Bone infection PAD (peripheral artery disease) Severe anemia Cellulitis and abscess of foot DM foot ulcer Osteomyelitis test positive test positive Asthma Depression with anxiety Diabetic retinopathy Type 2 diabetes mellitus with hyperglycemia, with long-term current use of insulin Blind right eye Diabetes Back pain Surgical History 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 Family History Family History Mother Coronary artery disease Myocardial infarction Stroke Diabetes mellitus Father Myocardial infarction Social History Social History Household Members: Family Household Members Other:: Sister, [id number], nephew Housing: Apartment Do you presently have visiting nurse or other home services: No Unable to assess alcohol history related to: Unknown Alcohol intake: never Comment: refuses camera Patient Tobacco Use Status: Never used Tobacco Smoked in Last 30 Days: No e-Cigarette/Vaping Use: Never Used Second Hand Smoke Exposure: No Use of substances other than those prescribed or required for medical reasons: No Advance Directives: Yes Advance Directives on File: Yes Advance Directives Date on File: 03/08/20 service: No Current occupational status: unemployed and disabled Gender identity: Female Physical Exam Vital Signs: Vital Signs: Last Vital Signs Temp 97.7 F 04/10/23 19:24 Pulse 98 04/10/23 19:24 Resp 20 04/10/23 19:24 BP 209/124 H 04/10/23 20:11 Pulse Ox 98 04/10/23 19:24 O2 Del Method Room Air 04/10/23 19:24 BMI result Body Mass Index 29.9 Medications Administered Discontinued Medications Generic Name Dose Route Start Last Admin Trade Name Freq PRN Reason Stop Dose Admin Hydralazine HCl 50 mg 04/10/23 19:25 04/10/23 19:28 Hydralazine Hcl 50 Mg Tablet PO 04/10/23 19:26 50 mg ONCE ONE Administration Protocol Labetalol HCl 100 mg 04/10/23 20:13 04/10/23 20:43 Labetalol Hcl 100 Mg Tablet PO 04/10/23 20:14 100 mg ONCE ONE Administration Protocol Nitroglycerin 1 inch 04/10/23 16:30 04/10/23 17:06 Nitroglycerin 2 % Oint 1 Gm Packet TRANSDERMA 04/10/23 16:31 1 inch ONCE ONE Administration Ondansetron HCl 4 mg 04/10/23 16:25 04/10/23 17:06 Ondansetron Odt 4 Mg Tab.Rapdis TRANSLINGU 04/10/23 16:26 4 mg ONCE ONE Administration Medical Decision Making Medical Decision Making [facility] Narrative: -my interpretation of labs, hematology and chemistry are at baseline. Patient's potassium within normal limits. -chest x-ray does not show any fluid overload, oxygen saturation 98% on room air. -patient's blood pressure elevated, patient's blood pressure usually at baseline runs around 190 systolic. Patient was given nitro paste and hydralazine p.o. -I discussed the patient with Dr. Siddiqi, he will call the dialysis center and have them call the patient early in the morning tomorrow to reschedule dialysis -patient' s blood pressure improved to 173/108. Patient not vomiting, tolerating p.o., ready to go home. Patient has an appointment tomorrow with dialysis, they will call her in the morning to let her know at what time she needs to present to the dialysis center -patient was also given her home meds for hypertension, including hydralazine, losartan, nifedipine and carvedilol Differential Diagnosis Differential Diagnoses: The differential diagnosis associated with the presentation includes Admission/Observation Consideration of admission/observation: Escalation of care including admission/observation considered (Patient's skipped dialysis, chronic elevated blood pressure, admission considered) Consult Healthcare Provider Management of the patient was discussed with: [employer] Superintendent Lab Data [facility] Lab Attestation statement: I reviewed the patient's lab results. 04/10/23 17:19 04/10/23 17:19 Labs: Lab Results 04/10/23 Range/Units 17:19 WBC 5.7 (4.8-10.8) X10*3/uL RBC 3.38 L (4.20-5.50) X10*6/uL Hgb 10.1 L (12.0-16.0) g/dl Hct 31.1 L (37.0-47.0) % MCV 92.0 (80.0-98.0) fL MCH 29.9 (27.0-33.0) pg MCHC 32.5 (31.0-35.0) g/dl RDW 14.6 (11.0-16.0) % Plt Count 163 (160-400) X10*3/uL MPV 11.8 (9.4-12.3) fL Immature Gran % (Auto) 0.2 (0.0-0.4) % Neut % (Auto) 83.2 H (45-73) % Lymph % (Auto) 9.1 L (20-40) % [place] % (Auto) 4.7 (2-11) % Eos % (Auto) 2.1 (0-4) % Baso % (Auto) 0.7 (0-2) % Lymph # (Auto) 0.5 L (1.2-4.9) X10*3/uL [place] # (Auto) 0.3 (0.1-1.2) X10*3/uL Eos # (Auto) 0.1 (0.0-0.4) X10*3/uL Baso # (Auto) 0.0 (0.0-0.2) X10*3/uL Abs Immat Gran (auto) 0.01 (0.00-0.03) X10*3/uL Absolute Neuts (auto) 4.7 (2.0-8.3) x10*3/uL Absolute Nucleated RBC 0.000 (0.0-0.012) X10*3/uL Nucleated RBC % (auto) 0.0 (0.0-0.2) /100WBC Sodium 137 (135-145) mmol/L Potassium 4.7 (3.3-5.1) mmol/L Chloride 107 (96-108) mmol/L Carbon Dioxide 18 L (22-29) mmol/L Anion Gap 17 (12-20) BUN 75 H (9-16) mg/dL Creatinine 6.15 H* (0.5-1.4) mg/dL Estim Creat Clear Calc 13.5 Estimated GFR 8 Random Glucose 98 (60-115) mg/dL Calcium 8.6 (8.4-10.2) mg/dL Total Bilirubin 1.3 H (0.0-1.0) mg/dL Direct Bilirubin 0.5 (0.0-0.5) mg/dL AST 22 (5-31) U/L ALT 12 (0-31) U/L Alkaline Phosphatase 121 H (39-117) U/L Troponin I High Sens 29.7 H (<3.5-17.0) ng/L Total Protein 8.2 H (6.5-8.0) g/dL Albumin 3.4 L (3.5-5.0) g/dL Independent Interpretation I performed an independent interpretation of an: EKG and Plain X-Ray Interpretation: My interpretation of EKG: Normal sinus rhythm, heart rate 97, right bundle branch block, no ST segment depressions or elevations, no T-wave inversion, QTC 525 which is chronic for the patient Radiology Impression Discussion of test interpretation with radiology: I have reviewed the radiologist's reading. Radiologist Impression: FINDINGS: Right-sided tunneled catheter with tip in the distal superior vena cava. Stable enlargement of the cardiac silhouette. Low lung volumes. No focal consolidation. No pleural effusion or pneumothorax. No acute osseous abnormality. XR/XR chest 1V IMPRESSION: 1. Low lung volumes. No focal consolidation. 2. Stable cardiomegaly. Independent Historian Clinical information obtained from an independent historian. History obtained from or confirmed by: EMS Critical Care Time Critical Care Time Critical Care Time: Yes Total Critical Care Time: 90 Attestation: I have personally provided critical care time. Time includes review of lab data, radiology results, discussion with consultants, and monitoring for potential decompensation. Intervention performed as documented. Discharge Plan Discharge Clinical Impression: Malaise, Nausea & vomiting, Hypertension Patient Disposition: Home, Self-Care Instructions: Chronic Hypertension (DC), Acute Nausea and Vomiting (ED) Additional Instructions: Tomorrow in the morning, you will receive a phone call from the dialysis center, they will let you know at what time you need to arrived at the dialysis center. Please follow-up with your primary care physician tomorrow. If you have any worsening or new symptoms, please return to the emergency room or call 911 Prescriptions: No Action isosorbide mononitrate 30 mg tablet extended release 24 hr 30 mg PO DAILY nifedipine 60 mg tablet extended release 24hr 60 mg PO DAILY lidocaine 5 % adhesive patch,medicated 1 patch topical DAILY oxycodone 5 mg tablet 5 mg PO Q6H PRN (Reason: severe pain) (DME) off loading boot Kit See Rx Instructions .Route Qty: 1 0RF Rx Instructions: As directed aspirin 81 mg Tablet,Delayed Release (Dr/Ec) 81 mg PO DAILY Qty: 30 0RF sevelamer carbonate 800 mg tablet 800 mg PO TID cholecalciferol (vitamin D3) 50 mcg (2,000 unit) capsule 50 mcg PO DAILY acetaminophen 325 mg tablet 650 mg PO Q4H PRN (Reason: mild pain) sodium bicarbonate 650 mg Tablet 650 mg PO TID Qty: 90 0RF carvedilol 25 mg tablet 25 mg PO BID Qty: 60 0RF Rx Instructions: must administer with a meal/food losartan 50 mg tablet 50 mg PO DAILY Qty: 30 0RF hydralazine 100 mg tablet 100 mg PO TID Qty: 90 0RF clonidine HCl 0.1 mg Tablet 0.3 mg PO BID Qty: 60 0RF Protocol: Hold for SBP< HOLD for SBP < : 90
[2023-04-10] MEDS: Nitroglycerin 2 % Oint 1 GM Packet 1 INCH TRANSDERMA (17:06)
[2023-04-10] MEDS: Ondansetron ODT 4 MG TAB.RAPDIS TRANSLINGU (17:06)
[2023-04-10 17:26] LABS: MANUAL DIFF FLAG NO
[2023-04-10 17:29] VITALS: BP 202/122; PULSE 98; RESP 20; TEMP 36.4; O2SAT 98
[2023-04-10 17:29] LABS: Basophils Percent Auto 0.7 % (0-2); Eosinophils Absolute Auto 0.1 X10*3/uL (0.0-0.4); Eosinophils Percent Auto 2.1 % (0-4); Hematocrit 31.1 % (37.0-47.0); Hemoglobin 10.1 g/dl (12.0-16.0); Imm Gran Abs Auto 0.01 X10*3/uL (0.00-0.03); Imm Gran Pct Auto 0.2 % (0.0-0.4); Lymphocytes Absolute Auto 0.5 X10*3/uL (1.2-4.9); Lymphocytes Percent Auto 9.1 % (20-40); Mean Corpuscular HGB Conc 32.5 g/dl (31.0-35.0); Mean Corpuscular Hemoglobin 29.9 pg (27.0-33.0); Mean Platelet Volume 11.8 fL (9.4-12.3); Monocytes Absolute Auto 0.3 X10*3/uL (0.1-1.2); Monocytes Percent Auto 4.7 % (2-11); Neutrophils Absolute Auto 4.7 x10*3/uL (2.0-8.3); Neutrophils Percent Auto 83.2 % (45-73); Platelet Count 163 X10*3/uL (160-400); Red Blood Count 3.38 X10*6/uL (4.20-5.50); Red Cell Distribution Width 14.6 % (11.0-16.0); White Blood Count 5.7 X10*3/uL (4.8-10.8)
[2023-04-10 17:46] LABS: Troponin-I High Sensitivity 29.7 ng/L (<3.5-17.0)
[2023-04-10 17:59] LABS: Alanine Aminotransferase 12 U/L (0-31); Albumin Level 3.4 g/dL (3.5-5.0); Alkaline Phosphatase 121 U/L (39-117); Anion Gap 17 (12-20); Aspartate Amino Transferase 22 U/L (5-31); Bilirubin Direct 0.5 mg/dL (0.0-0.5); Bilirubin Total 1.3 mg/dL (0.0-1.0); Blood Urea Nitrogen 75 mg/dL (9-16); Calcium 8.6 mg/dL (8.4-10.2); Carbon Dioxide 18 mmol/L (22-29); Chloride 107 mmol/L (96-108); Creatinine Clr Calc Pharmacy 13.5; Estimated Glomerular Filt Rate 8; Glucose Random 98 mg/dL (60-115); Potassium 4.7 mmol/L (3.3-5.1); Sodium 137 mmol/L (135-145); Total Protein 8.2 g/dL (6.5-8.0)
--- NOTE | 2023-04-10 18:38 | PC.NURSE ---
patient had taken off all her leads and BP cuff for no reason, said the girl did it New tech reapplied everything on.
[2023-04-10 19:24] VITALS: BP 208/125; PULSE 98; RESP 20; TEMP 36.5; O2SAT 98
[2023-04-10] MEDS: hydrALAZINE HCl 50 MG TABLET PO ×2 (19:28→22:15)
--- NOTE | 2023-04-10 19:30 | PC.NURSE ---
pt administered hydralazine po for high blood pressure as ordered by MD. pt states i going to throw this up MD aware. plan of care ongoing
[2023-04-10 20:11] VITALS: BP 209/124
[2023-04-10] MEDS: Labetalol HCL 100 MG TABLET PO (20:43)
--- NOTE | 2023-04-10 22:01 | PC.NURSE ---
ambulance transport booked to bring patient back home.
[2023-04-10 22:02] VITALS: BP 173/108
[2023-04-10] MEDS: carvediloL 25 MG TABLET PO (22:15)
[2023-04-10] MEDS: Losartan Potassium 50 MG TABLET PO (22:15)
== END 2023-04-10 22:18 | disposition home or self-care (01) ==
PROVIDERS: Emergency Provider Emergency Medicine
DX: R07.89 Other chest pain (principal); R11.2 Nausea with vomiting, unspecified; I10 Essential (primary) hypertension; R53.81 Other malaise; Z79.899 Other long term (current) drug therapy
CPT/HCPCS: 36415; 71045; 80048; 80076; 84484; 85025; 93005; 99285

== ENCOUNTER → 2023-04-10 16:25 | Outpatient (BNV) | payer OTHER, SELFPAY | PROVIDERS: Emergency Provider Emergency Medicine; Visit Provider Internal Medicine Cardiovascular Disease | DX: R94.31 Abnormal electrocardiogram [ECG] [EKG] (principal) | CPT/HCPCS: 93010 ==

== ENCOUNTER 2023-04-12 16:16 | Emergency (ER) | payer OTHER, SELFPAY ==
[2023-04-12] VITALS (7 sets, daily range): BP systolic 162–205; BP diastolic 74–131; PULSE 81–89; RESP 14–20; TEMP 36.3–36.6; O2SAT 94–100
--- NOTE | ~2023-04-12 | CT_ITS ---
EXAMINATION: CT head/brain wo IV con CLINICAL INFORMATION: Reason for Exam Accelerated hypertension with headache COMPARISON: CT head without contrast 03/24/2023 TECHNIQUE: Contiguous axial imaging was performed from the skull base to vertex without intravenous contrast. Sagittal and coronal reformatted images were obtained. This CT examination was performed using dose optimization techniques as appropriate, variously including the following: * Automated exposure control * Adjustment of mA and/or kV according to patient size (this includes techniques or standardized protocols for targeted exams where dose is matched to indication/reason for exam; i.e. extremities or head) Use of iterative reconstruction technique DLP: 702.97 mGy-cm FINDINGS: No acute osseous or soft tissue abnormality. The mastoid air cells and visualized portions of the paranasal sinuses are well aerated. There is no evidence of acute intracranial hemorrhage or territorial infarction. No abnormal mass effect or midline shift is seen. [place] to white matter differentiation is well preserved. No extra-axial fluid collections are identified. No hydrocephalus. No significant volume loss. Mild periventricular and deep white matter hypoattenuation is nonspecific and stable. Stable hyperdensity involving the vitreous chamber of the bilateral globes suggestive of prior subretinal hemorrhages. CT/CT head/brain wo IV con IMPRESSION: 1. No acute intracranial abnormality including hemorrhage, mass effect, hydrocephalus, or acute territorial edematous infarction. 2. Stable sequela of bilateral subretinal hemorrhages.
--- NOTE | ~2023-04-12 | XR_ITS ---
EXAMINATION: XR FOOT, RIGHT CLINICAL INFORMATION: Foot ulcer, bony erosion. COMPARISON: MR left foot 03/12/2023. TECHNIQUE: AP, lateral, and oblique views of the right foot. FINDINGS: Postsurgical changes from amputation at the level of the proximal metatarsals. No discrete cortical destructive changes or erosions to suspect osteomyelitis. Diffuse soft tissue swelling more prominent along the anterior aspect of the foot. No unexpected radiopaque foreign bodies. Vascular calcifications. XR/XR foot RT min 3V IMPRESSION: 1. Postsurgical changes from amputation at the level of the proximal metatarsals. 2. No discrete cortical destructive changes or erosions to suspect osteomyelitis. However, early osteomyelitis can be radiographically occult, and if indicated correlation with an MR could be obtained as clinically warranted.
--- NOTE | 2023-04-12 17:04 | ED_ITS ---
HPI - General Adult General Chief complaint: Headache Stated complaint: from dialysis, headache, hypertension 195/122 Time Seen by Provider: 04/12/23 17:04 Source: patient Mode of arrival: ambulatory Limitations: no limitations History of Present Illness HPI narrative: Patient is 32 years old with history of end-stage renal disease on hemodialysis type 2 diabetes retinopathy legally blind chronic diabetic foot status post bilateral TMA, CHF, uncontrolled diabetes, sent from dialysis center for elevated blood pressure of 195/122 on arrival patient's blood pressure was 205/103 patient was given clonidine x2 during dialysis but threw up last tablet , blood pressure continued to be elevated patient complaining of headache on all over body aches with nausea and vomiting patient used oxygen in 02/17 and has not used oxygen for last 1 month aturating 100% at room air patient also complaining discharge from the right foot which is going on for last 1 week seen by vascular surgeon plan for MRI no fever no chills Related Data Home Medications Medication Instructions Recorded Confirmed isosorbide mononitrate 30 mg 30 mg PO DAILY 03/11/23 03/25/23 tablet,extended release 24 hr lidocaine 5 % topical patch 1 patch topical DAILY 03/11/23 03/25/23 nifedipine 60 mg tablet,extended 60 mg PO DAILY 03/11/23 03/25/23 release 24 hr oxycodone 5 mg tablet 5 mg PO Q6H PRN severe pain 03/11/23 03/25/23 acetaminophen 325 mg tablet 650 mg PO Q4H PRN mild pain 03/20/23 03/25/23 cholecalciferol (vitamin D3) 50 50 mcg PO DAILY 03/20/23 03/25/23 mcg (2,000 unit) capsule sevelamer carbonate 800 mg tablet 800 mg PO TID 03/20/23 03/25/23 Previous Rx's Medication Instructions Recorded aspirin 81 mg tablet,delayed 81 mg PO DAILY #30 tabs 01/29/23 release off loading boot #1 ea 03/14/23 carvedilol 25 mg tablet 25 mg PO BID #60 tabs 03/22/23 hydralazine 100 mg tablet 100 mg PO TID #90 tabs 03/22/23 losartan 50 mg tablet 50 mg PO DAILY #30 tabs 03/22/23 sodium bicarbonate 650 mg tablet 650 mg PO TID #90 tabs 03/22/23 clonidine HCl 0.1 mg tablet 0.3 mg PO BID #60 tabs 03/28/23 amoxicillin 875 mg-potassium 1 tab PO BID #20 tabs 04/13/23 clavulanate 125 mg tablet Allergies Allergy/AdvReac Type Severity Reaction Status Date / Time morphine [MORPHINE] Allergy Intermediate Itching Verified 03/24/23 16:53 azithromycin [From Zithromax] Allergy Hives Verified 03/24/23 16:53 gabapentin Allergy Facial Verified 03/24/23 16:53 Swelling tramadol Allergy Facial Verified 03/24/23 16:53 Swelling vancomycin Allergy Anaphylaxis Verified 04/02/23 15:01 [facility] Past Medical History Medical History Diabetic foot Vomiting Renal failure Hypertension End-stage renal disease (ESRD) Anemia Hyperkalemia Metabolic acidosis HFrEF (heart failure with reduced ejection fraction) ESRD on dialysis Migraine Diabetic foot ulcer associated with type 2 diabetes mellitus Chronic pain Gastroparesis Non-compliance with renal dialysis Hypertension Hypertensive emergency Diabetes ESRD needing dialysis Cardiomyopathy delivery delivered Anemia in chronic kidney disease (CKD) CKD (chronic kidney disease) Headache, migraine Abnormal finding on echocardiogram Elevated troponin Chest pain Acute worsening of stage 3 chronic kidney disease Generalized edema Sepsis Cellulitis Pleural effusion CHF (congestive heart failure) (~06/07/22) Tachycardia Atypical chest pain Bone infection PAD (peripheral artery disease) Severe anemia Cellulitis and abscess of foot DM foot ulcer Osteomyelitis test positive test positive Asthma Depression with anxiety Diabetic retinopathy Type 2 diabetes mellitus with hyperglycemia, with long-term current use of insulin Blind right eye Diabetes Back pain Surgical History 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 Family History Family History Mother Coronary artery disease Myocardial infarction Stroke Diabetes mellitus Father Myocardial infarction Social History Social History Household Members: Family Household Members Other:: Sister, [id number], nephew Housing: Apartment Do you presently have visiting nurse or other home services: No Unable to assess alcohol history related to: Unknown Alcohol intake: never Comment: refuses camera Patient Tobacco Use Status: Never used Tobacco e-Cigarette/Vaping Use: Never Used Second Hand Smoke Exposure: No Advance Directives: Yes Advance Directives on File: Yes Advance Directives Date on File: 03/08/20 Patient : No service: No Current occupational status: unemployed and disabled Gender identity: Female Physical Exam ED Vital Signs: Vital Signs - 24 hr 04/12/23 17:01 04/12/23 19:18 04/12/23 19:24 Temperature 97.4 F Pulse Rate 87 87 Respiratory Rate 16 14 14 Blood Pressure 205/103 H 196/102 H Pulse Oximetry 97 99 Oxygen Delivery Method Room Air Room Air 04/12/23 19:34 04/12/23 20:00 04/12/23 21:40 Temperature 97.8 F Pulse Rate 89 81 Respiratory Rate 20 Blood Pressure 162/74 H 176/85 H Pulse Oximetry 94 98 Oxygen Delivery Method Room Air Room Air 04/13/23 01:08 Temperature 98.2 F Pulse Rate 100 Respiratory Rate 18 Blood Pressure Pulse Oximetry 96 Oxygen Delivery Method Room Air Appearance: Alert. Oriented X3. No acute distress. Eyes: legally blind ENT: Pharynx normal. Oral Mucosa moist Neck: Normal inspection. Neck supple. CVS: Normal heart rate and rhythm. Pulses normal. Respiratory: No respiratory distress. Equal air entry bilateral, no wheezing/rales/rhonchi Abdomen: Soft and nontender. Bowel sounds are present, no mass palpable, no CVA tenderness Skin: Skin warm and dry. Normal skin color. Normal skin turgor. Extremities: No lower extremity edema. No calf tenderness right foot metatarsal amputation with small open wound with serosanguineous fluid discharge Neuro: Oriented X 3. No motor deficit. No sensory deficit.No cerebellar signs , cranial nerves II-XII intact Medications Administered Generic Name Dose Route Start Last Admin Trade Name Freq PRN Reason Stop Dose Admin Sodium Chloride 500 mls @ 250 mls/hr 04/13/23 01:00 04/13/23 01:02 Ns IVCONT 04/13/23 02:59 250 mls/hr .Q2H VASILE Administration Discontinued Medications Generic Name Dose Route Start Last Admin Trade Name Freq PRN Reason Stop Dose Admin Cephalexin HCl 500 mg 04/12/23 20:59 04/12/23 22:27 Cephalexin 500 Mg Capsule PO 04/12/23 21:00 Not Given ONCE ONE Diphenhydramine HCl 25 mg 04/13/23 00:56 04/13/23 01:02 Diphenhydramine Hcl 50 Mg/Ml Vial IVPUSH 04/13/23 00:57 25 mg ONCE ONE Administration Doxycycline Monohydrate 100 mg 04/12/23 20:59 04/12/23 22:27 Doxycycline Monohydrate 100 Mg Capsule PO 04/12/23 21:00 Not Given ONCE ONE Hydralazine HCl 20 mg 04/12/23 17:16 04/12/23 19:25 Hydralazine Hcl 20 Mg/Ml Vial IVPUSH 04/12/23 17:17 20 mg ONCE ONE Administration Protocol Hydromorphone HCl 2 mg 04/12/23 17:54 04/12/23 19:24 Hydromorphone Hcl 2 Mg/Ml Vial IVPUSH 04/12/23 17:55 2 mg ONCE ONE Administration Protocol Ondansetron HCl 4 mg 04/12/23 17:54 04/12/23 19:25 Ondansetron Hcl 4 Mg/2 Ml Vial IVPUSH 04/12/23 17:55 4 mg ONCE ONE Administration Ondansetron HCl 4 mg 04/12/23 20:59 04/12/23 21:04 Ondansetron Hcl 4 Mg/2 Ml Vial IVPUSH 04/12/23 21:00 4 mg ONCE ONE Administration Prochlorperazine Edisylate 10 mg 04/12/23 22:58 04/12/23 23:03 Prochlorperazine Edisylate 10 Mg/2 Ml Vial IVPUSH 04/12/23 22:59 10 mg ONCE ONE Administration Medical Decision Making Medical Decision Making [facility] Narrative: Patient with accelerated hypertension on multiple medications for hypertension responded to IV hydralazine status post dialysis during stay in the ER patient complaining of nausea and vomiting with dry heaves received medication for nausea feeling much better had a small wound in the right foot x-ray negative for bony erosion started on doxycycline and Keflex patient will be discharged home advised to continue blood pressure medication patient's CT scan negative for any acute will discharge patient home on Augmentin Differential Diagnosis Differential Diagnoses: The differential diagnosis associated with the presentation includes Accelerated hypertension/SAH/SDH/gastritis/infected wound right foot Lab Data [facility] Lab Attestation statement: I reviewed the patient's lab results. 04/12/23 19:22 04/12/23 19:22 Labs: Lab Results 04/12/23 Range/Units 19:22 WBC 4.6 L (4.8-10.8) X10*3/uL RBC 3.21 L (4.20-5.50) X10*6/uL Hgb 9.8 L (12.0-16.0) g/dl Hct 28.7 L (37.0-47.0) % MCV 89.4 (80.0-98.0) fL MCH 30.5 (27.0-33.0) pg MCHC 34.1 (31.0-35.0) g/dl RDW 14.9 (11.0-16.0) % Plt Count 131 L (160-400) X10*3/uL MPV 12.5 H (9.4-12.3) fL Immature Gran % (Auto) 0.2 (0.0-0.4) % Neut % (Auto) 81.3 H (45-73) % Lymph % (Auto) 8.7 L (20-40) % [place]ay % (Auto) 6.9 (2-11) % Eos % (Auto) 2.2 (0-4) % Baso % (Auto) 0.7 (0-2) % Lymph # (Auto) 0.4 L (1.2-4.9) X10*3/uL [place]ay # (Auto) 0.3 (0.1-1.2) X10*3/uL Eos # (Auto) 0.1 (0.0-0.4) X10*3/uL Baso # (Auto) 0.0 (0.0-0.2) X10*3/uL Abs Immat Gran (auto) 0.01 (0.00-0.03) X10*3/uL Absolute Neuts (auto) 3.8 (2.0-8.3) x10*3/uL Absolute Nucleated RBC 0.000 (0.0-0.012) X10*3/uL Nucleated RBC % (auto) 0.0 (0.0-0.2) /100WBC Sodium 136 (135-145) mmol/L Potassium 3.7 D (3.3-5.1) mmol/L Chloride 101 (96-108) mmol/L Carbon Dioxide 25 (22-29) mmol/L Anion Gap 14 (12-20) BUN 26 H (9-16) mg/dL Creatinine 3.57 H (0.5-1.4) mg/dL Estim Creat Clear Calc TNP Estimated GFR 15 Random Glucose 191 H (60-115) mg/dL Calcium 8.4 (8.4-10.2) mg/dL Total Bilirubin 1.3 H (0.0-1.0) mg/dL AST 25 (5-31) U/L ALT 12 (0-31) U/L Alkaline Phosphatase 114 (39-117) U/L Total Protein 7.5 (6.5-8.0) g/dL Albumin 3.2 L (3.5-5.0) g/dL Independent Interpretation I performed an independent interpretation of an: Plain X-Ray Radiology Impression Discussion of test interpretation with radiology: I have reviewed the radiologist's reading. Discharge Plan Discharge Clinical Impression: Accelerated essential hypertension, Diabetic Charcot foot Patient Disposition: Home, Self-Care Instructions: Chronic Hypertension (ED), Diabetic Foot Ulcers (ED) Additional Instructions: Take blood pressure medication as prescribed on a regular basis Antibiotic as prescribed for possible infection in the right foot Follow with PCP/bottle packer Prescriptions: New amoxicillin-pot clavulanate 875-125 mg tablet 1 tab PO BID Qty: 20 0RF No Action isosorbide mononitrate 30 mg tablet extended release 24 hr 30 mg PO DAILY nifedipine 60 mg tablet extended release 24hr 60 mg PO DAILY lidocaine 5 % adhesive patch,medicated 1 patch topical DAILY oxycodone 5 mg tablet 5 mg PO Q6H PRN (Reason: severe pain) (DME) off loading boot Kit See Rx Instructions .Route Qty: 1 0RF Rx Instructions: As directed aspirin 81 mg Tablet,Delayed Release (Dr/Ec) 81 mg PO DAILY Qty: 30 0RF sevelamer carbonate 800 mg tablet 800 mg PO TID cholecalciferol (vitamin D3) 50 mcg (2,000 unit) capsule 50 mcg PO DAILY acetaminophen 325 mg tablet 650 mg PO Q4H PRN (Reason: mild pain) sodium bicarbonate 650 mg Tablet 650 mg PO TID Qty: 90 0RF carvedilol 25 mg tablet 25 mg PO BID Qty: 60 0RF Rx Instructions: must administer with a meal/food losartan 50 mg tablet 50 mg PO DAILY Qty: 30 0RF hydralazine 100 mg tablet 100 mg PO TID Qty: 90 0RF clonidine HCl 0.1 mg Tablet 0.3 mg PO BID Qty: 60 0RF Protocol: Hold for SBP< HOLD for SBP < : 90
--- NOTE | 2023-04-12 19:00 | PC.NURSE ---
pt difficult stick for iv/labs- multiple attempts made for iv by rn. obtaining access at this time. sending labs.
[2023-04-12] MEDS: HYDROmorphone HCl 2 MG/ML VIAL IVPUSH (19:24)
[2023-04-12] MEDS: hydrALAZINE HCl 20 MG/ML VIAL IVPUSH (19:25)
[2023-04-12] MEDS: ondansetron HCL 4 MG/2 ML VIAL IVPUSH ×2 (19:25→21:04)
[2023-04-12 19:30] LABS: Basophils Percent Auto 0.7 % (0-2); Eosinophils Absolute Auto 0.1 X10*3/uL (0.0-0.4); Eosinophils Percent Auto 2.2 % (0-4); Hematocrit 28.7 % (37.0-47.0); Hemoglobin 9.8 g/dl (12.0-16.0); Imm Gran Abs Auto 0.01 X10*3/uL (0.00-0.03); Imm Gran Pct Auto 0.2 % (0.0-0.4); Lymphocytes Absolute Auto 0.4 X10*3/uL (1.2-4.9); Lymphocytes Percent Auto 8.7 % (20-40); MANUAL DIFF FLAG NO; Mean Corpuscular HGB Conc 34.1 g/dl (31.0-35.0); Mean Corpuscular Hemoglobin 30.5 pg (27.0-33.0); Mean Corpuscular Volume 89.4 fL (80.0-98.0); Mean Platelet Volume 12.5 fL (9.4-12.3); Monocytes Absolute Auto 0.3 X10*3/uL (0.1-1.2); Monocytes Percent Auto 6.9 % (2-11); Neutrophils Absolute Auto 3.8 x10*3/uL (2.0-8.3); Neutrophils Percent Auto 81.3 % (45-73); Platelet Count 131 X10*3/uL (160-400); Red Blood Count 3.21 X10*6/uL (4.20-5.50); Red Cell Distribution Width 14.9 % (11.0-16.0); White Blood Count 4.6 X10*3/uL (4.8-10.8)
[2023-04-12 19:47] LABS: Alanine Aminotransferase 12 U/L (0-31); Albumin Level 3.2 g/dL (3.5-5.0); Alkaline Phosphatase 114 U/L (39-117); Anion Gap 14 (12-20); Aspartate Amino Transferase 25 U/L (5-31); Bilirubin Total 1.3 mg/dL (0.0-1.0); Blood Urea Nitrogen 26 mg/dL (9-16); Calcium 8.4 mg/dL (8.4-10.2); Carbon Dioxide 25 mmol/L (22-29); Chloride 101 mmol/L (96-108); Estimated Glomerular Filt Rate 15; Glucose Random 191 mg/dL (60-115); Potassium 3.7 mmol/L (3.3-5.1); Sodium 136 mmol/L (135-145); Total Protein 7.5 g/dL (6.5-8.0)
[2023-04-12] MEDS: Prochlorperazine Edisylate 10 MG/2 ML VIAL IVPUSH (23:03)
[2023-04-13] MEDS: 0.9 % Sodium Chloride 500 ML 250 ML IVCONT (01:02)
[2023-04-13] MEDS: diphenhydrAMINE HCL 50 MG/ML VIAL 25 MG IVPUSH (01:02)
[2023-04-13 01:08] VITALS: BP 184/93; PULSE 100; RESP 18; TEMP 36.8; O2SAT 96
--- NOTE | 2023-04-13 03:14 | MHC.EDTECH ---
call out to [facility] at [phone] to book transport for pt back home, estimated eta given was [phone]
== END 2023-04-13 04:15 | disposition home or self-care (01) ==
PROVIDERS: Emergency Provider Internal Medicine
DX: A52.16 Charcot's arthropathy (tabetic) (principal); E11.22 Type 2 diabetes mellitus with diabetic chronic kidney disease; I13.2 Hypertensive heart and chronic kidney disease with heart failure and with stage 5 chronic kidney disease, or end stage renal disease; N18.6 End stage renal disease; I50.20 Unspecified systolic (congestive) heart failure; Z99.2 Dependence on renal dialysis; D63.1 Anemia in chronic kidney disease; Z79.82 Long term (current) use of aspirin; Z79.899 Other long term (current) drug therapy
CPT/HCPCS: 36415; 70450; 73630; 80053; 85025; 96361; 96374; 96375; 96376; 99284; J0360; J0737; J1170; J1200; J2405

== ENCOUNTER 2023-04-13 04:43 | Observation (INO) | payer OTHER, SELFPAY ==
[2023-04-13] VITALS (13 sets, daily range): BP systolic 121–219; BP diastolic 75–114; PULSE 93–121; RESP 13–20; TEMP 36.7–37.4; O2SAT 93–97; BMI 25.9; BMI 28.8
--- NOTE | ~2023-04-13 | CT_ITS ---
EXAMINATION: CT ABDOMEN AND PELVIS WITHOUT CONTRAST CLINICAL INFORMATION: Abdominal pain COMPARISON: Previous CT of the abdomen and pelvis November 2022 TECHNIQUE: Multidetector volumetric imaging was performed from the superior aspect of the liver through the pubic symphysis. Sagittal and coronal reformatted images were obtained on the technologist's workstation. This CT examination was performed using dose optimization techniques as appropriate, variously including the following: *Automated exposure control *Adjustment of mA and/or kV according to patient size (this includes techniques or standardized protocols for targeted exams where dose is matched to indication/reason for exam; i.e. extremities or head) *Use of iterative reconstruction technique DLP: 482 mGy-cm FINDINGS: LUNG BASES: Enlarged heart. Small right pleural effusion LIVER, GALLBLADDER, AND BILIARY TREE: The liver is normal in size, shape, and attenuation. No focal hepatic lesion or biliary ductal dilatation is present. The gallbladder has been removed. PANCREAS: Unremarkable. SPLEEN: Unremarkable. ADRENAL GLANDS: Unremarkable. KIDNEYS AND URETERS: The kidneys are normal in size, shape, and attenuation. No hydronephrosis, hydroureter. There are extensive bilateral vascular calcifications limiting evaluation for a small stone. No large renal stone seen. BLADDER: Unremarkable. GASTROINTESTINAL TRACT: The small and large bowel are unremarkable. The appendix is unremarkable. ABDOMINAL WALL: No significant hernia is appreciated. Postsurgical changes to the low anterior abdominal wall. LYMPH NODES: Normal. VASCULAR: Severe atherosclerotic disease. No aneurysm. PELVIC VISCERA: Unremarkable. OSSEOUS STRUCTURES: Generative disc disease at L4-L5. CT/CT abdomen pelvis wo IV con IMPRESSION: No acute findings. Enlarged heart and small right pleural effusion. Severe atherosclerotic disease. Fleischner guidelines were followed.
--- NOTE | 2023-04-13 06:40 | ED.GENADULT ---
HPI - General Adult General Chief complaint: General Medical Stated complaint: Nausea Time Seen by Provider: 04/13/23 06:31 Source: patient and EMS Mode of arrival: EMS Limitations: no limitations History of Present Illness HPI narrative: Patient is a 32 year old assigned female at with a history of CKD requiring dialysis, HTN, and heart failure chronically on 4 liters of oxygen via nasal canula, presenting to the emergency department today with nausea, vomiting, and unable to get inside her home. Patient states that she last dialyzed yesterday. Patient states that she was seen here last night for the same issue and told she has an infection in her right foot, discharged home, and her house was locked so EMS brought her back to the ED. Patient states that she has not been able to tolerate anything by mouth. Patient denies any dizziness, lightheadedness, fever, chills, blurry vision, double vision, loss of vision, back pain, night sweats, blood in her stool, syncope or a near syncopal episode, bowel incontinence, bladder incontinence, bowel retention, bladder retention, or any other complaints at this time. Severity: mild Relieving factors: none Exacerbating factors: none Associated symptoms: nausea/vomiting Related Data Home Medications Medication Instructions Recorded Confirmed isosorbide mononitrate 30 mg 30 mg PO DAILY 03/11/23 03/25/23 tablet,extended release 24 hr lidocaine 5 % topical patch 1 patch topical DAILY 03/11/23 03/25/23 nifedipine 60 mg tablet,extended 60 mg PO DAILY 03/11/23 03/25/23 release 24 hr oxycodone 5 mg tablet 5 mg PO Q6H PRN severe pain 03/11/23 03/25/23 acetaminophen 325 mg tablet 650 mg PO Q4H PRN mild pain 03/20/23 03/25/23 cholecalciferol (vitamin D3) 50 50 mcg PO DAILY 03/20/23 03/25/23 mcg (2,000 unit) capsule sevelamer carbonate 0.8 gram oral 0.8 g PO TID 04/13/23 powder packet Previous Rx's Medication Instructions Recorded aspirin 81 mg tablet,delayed 81 mg PO DAILY #30 tabs 01/29/23 release off loading boot #1 ea 03/14/23 carvedilol 25 mg tablet 25 mg PO BID #60 tabs 03/22/23 hydralazine 100 mg tablet 100 mg PO TID #90 tabs 03/22/23 losartan 50 mg tablet 50 mg PO DAILY #30 tabs 03/22/23 sodium bicarbonate 650 mg tablet 650 mg PO TID #90 tabs 03/22/23 clonidine HCl 0.1 mg tablet 0.3 mg PO BID #60 tabs 03/28/23 amoxicillin 875 mg-potassium 1 tab PO BID #20 tabs 04/13/23 clavulanate 125 mg tablet Allergies Allergy/AdvReac Type Severity Reaction Status Date / Time morphine [MORPHINE] Allergy Intermediate Itching Verified 03/24/23 16:53 azithromycin [From Zithromax] Allergy Hives Verified 03/24/23 16:53 gabapentin Allergy Facial Verified 03/24/23 16:53 Swelling tramadol Allergy Facial Verified 03/24/23 16:53 Swelling vancomycin Allergy Anaphylaxis Verified 04/02/23 15:01 Review of Systems Constitutional: Constitutional: Reports no additional constitutional complaints, Denies chills, Denies fever(s) and Denies night sweats Eyes: Eyes: Reports no additional eye complaints, Denies blurry vision, Denies change in vision, Denies diplopia, Denies eye discharge, Denies loss of vision and Denies eye pain ENT: Denies dizziness Cardiovascular: Cardiovascular: Reports no additional cardiovascular complaints, Denies chest pain, Denies lightheadedness, Denies Loss of Consciousness and Denies dyspnea Respiratory: Respiratory: Reports no additional respiratory complaints and Denies dyspnea Gastrointestinal: Gastrointestinal: Reports no additional gastrointestinal complaints, Denies abdominal pain, Denies melena, Denies hematochezia, Denies change in bowel habits, Denies change in stool character, Reports nausea and Reports vomiting Genitourinary: Genitourinary: Denies hematuria, Denies urinary frequency, Denies dysuria, Denies urinary incontinence, Denies urinary hesitancy and Denies urinary urgency Musculoskeletal: Musculoskeletal: Reports no additional musculoskeletal complaints, Denies numbness and Denies tingling Comments: right foot wound Neurologic: Denies dizziness, Denies loss of vision, Denies numbness and Denies tingling Psychiatric: Psychiatric: Reports no additional psychiatric complaints Endocrine: Endocrine: Reports no additional endocrine complaints Hematologic/Lymphatic: Hematologic/Lymphatic: Reports no additional hematologic/lymphatic complaints Allergic/Immunologic: Allergic/Immunologic: Reports no additional allergic/immunologic complaints PMFSH Past Medical History Attestation statement: The following information was validated with the patient. Source: old records reviewed and nursing notes reviewed Medical History Diabetic foot Vomiting Renal failure Hypertension End-stage renal disease (ESRD) Anemia Hyperkalemia Metabolic acidosis HFrEF (heart failure with reduced ejection fraction) ESRD on dialysis Migraine Diabetic foot ulcer associated with type 2 diabetes mellitus Chronic pain Gastroparesis Non-compliance with renal dialysis Hypertension Hypertensive emergency Diabetes ESRD needing dialysis Cardiomyopathy delivery delivered Anemia in chronic kidney disease (CKD) CKD (chronic kidney disease) Headache, migraine Abnormal finding on echocardiogram Elevated troponin Chest pain Acute worsening of stage 3 chronic kidney disease Generalized edema Sepsis Cellulitis Pleural effusion CHF (congestive heart failure) (~06/07/22) Tachycardia Atypical chest pain Bone infection PAD (peripheral artery disease) Severe anemia Cellulitis and abscess of foot DM foot ulcer Osteomyelitis test positive test positive Asthma Depression with anxiety Diabetic retinopathy Type 2 diabetes mellitus with hyperglycemia, with long-term current use of insulin Blind right eye Diabetes Back pain Surgical History 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 Family History Family History Mother Coronary artery disease Myocardial infarction Stroke Diabetes mellitus Father Myocardial infarction Social History Social History Household Members: Family Household Members Other:: Sister, [id number], nephew Housing: Apartment Do you presently have visiting nurse or other home services: No Unable to assess alcohol history related to: Unknown Alcohol intake: never Comment: refuses camera Patient Tobacco Use Status: Never used Tobacco e-Cigarette/Vaping Use: Never Used Second Hand Smoke Exposure: No Advance Directives: Yes Advance Directives on File: Yes Advance Directives Date on File: 03/08/20 service: No Current occupational status: unemployed and disabled Gender identity: Female Physical Exam ED Vital Signs: Vital Signs - 24 hr 04/13/23 05:13 04/13/23 07:00 04/13/23 07:51 Pulse Rate 121 H 119 H 107 H Respiratory Rate 18 Blood Pressure 192/99 H 211/102 H 121/94 H Pulse Oximetry 93 Oxygen Delivery Method Room Air 04/13/23 08:00 Pulse Rate 114 H Respiratory Rate Blood Pressure 180/86 H Pulse Oximetry Oxygen Delivery Method BMI result Body Mass Index 25.9 Const General: cooperative, no acute distress, alert and awake Nutritional Appearance: well nourished Orientation/consciousness: patient oriented x3 Limitations: no limitations HENMT Head: Yes normal to inspection and Yes atraumatic Ears: hearing grossly normal bilaterally and external ears normal General nose exam: Normal external nose present, no nasal discharge noted and no epistaxis Face and sinus: Yes normal facial exam, No abrasion and No laceration Mouth: Normal oral and palatal mucosa present, no drooling and no muffled voice Eyes General: appearance normal, both eyes and all related structures Periorbital: periorbital findings normal Eyelids: Yes eyelids normal Conjunctivae: conjunctivae normal Pupils: Equal, round and reactive pupils present EOM: EOMs intact bilaterally Neck Neck: Yes normal visual inspection, Yes full ROM and Yes no lymphadenopathy Chest Chest palpation & inspection: normal inspection of the chest Resp Effort & Inspection: normal respiratory effort and able to speak in complete sentences GI Inspection: Yes normal to inspection Neuro General: patient oriented x3 and moves all extremities Cranial nerves: Yes Equal, round and reactive pupils present Cognition (Neuro): normal cognition Motor exam (neuro): 5/5 motor strength present throughout Sensory Exam: Normal double simultaneous stimulation for sensation Coordination: [id number] test normal Extrem Other: right foot stub with chronic appearing wound actively draining, warm, and odorous Psych Appearance: grossly normal Mental Status: mental status grossly normal Affect: normal affect Attitude: cooperative Thought process: Normal thought process present Thought content: Normal thought content present Insight: Good insight present (Psych) Medications Administered Discontinued Medications Generic Name Dose Route Start Last Admin Trade Name Freq PRN Reason Stop Dose Admin Hydralazine HCl 20 mg 04/13/23 06:44 04/13/23 07:41 Hydralazine Hcl 20 Mg/Ml Vial IVPUSH 04/13/23 06:45 20 mg ONCE ONE Administration Protocol Ceftriaxone Sodium 1 gm/ 50 mls @ 100 mls/hr 04/13/23 06:47 04/13/23 08:27 Sodium Chloride IV 04/13/23 07:16 Infused ONCE ONE Infusion Metoclopramide HCl 10 mg 04/13/23 06:44 04/13/23 07:41 Metoclopramide Hcl 10 Mg/2 Ml Vial IVPUSH 04/13/23 06:45 10 mg ONCE ONE Administration Medical Decision Making Medical Decision Making [facility] Narrative: Patient is a 32 year old assigned female at with a history of CKD requiring dialysis, HTN, and heart failure chronically on 4 liters of oxygen via nasal canula presenting to the emergency department today with nausea, vomiting, high blood pressure, and a right infected foot wound. Patient's physical exam was as noted in the physical exam portion of this note. Patient's blood work from 04/12/2023 was unremarkable. Patient's EKG from 04/10/2023 was unremarkable. Patient's right foot x-ray from 04/12/2023 showed no acute process. Patient's head CT from 04/12/2023 was unremarkable. Patient is unable to tolerate PO at this time. Patient was given additiona IV Hydralazne which lowered her pressure appropriately. Patient given IV antibiotics. Patient's clinical presentation is not consistent with sepsis (@0700). I spoke to the hospitalist team who agreed to admission. I explained my physical exam findings as well as all test results to the patient. I answered all questions asked by the patient. Patient verbalized agreement and understanding with this treatment plan and admission. Differential Diagnosis Differential Diagnoses: The differential diagnosis associated with the presentation includes Hypertension Cellulitis Nausea and vomiting Admission/Observation Consideration of admission/observation: Escalation of care including admission/observation considered Patient admitted. Consult Healthcare Provider Management of the patient was discussed with: Hospitalist (agreed to admission as noted in the MDM Rationale portion of this note.) Lab Data [facility] Lab Attestation statement: I reviewed the patient's lab results. My interpretation of these results are in the MDM Rationale portion of this note. Labs: Lab Results 04/13/23 Range/Units 07:34 Lactic Acid 1.4 (0.5-2.0) mmol/L Independent Interpretation I performed an independent interpretation of an: EKG, Plain X-Ray and CT Scan Interpretation: Reviewed EKG from 04/10/2023 as well as imaging from 04/12/2023. Independent Historian Clinical information obtained from an independent historian. History obtained from or confirmed by: EMS (EMS provided additional history and confirmed the history provided by the patient.) Critical Care Time Critical Care Time Critical Care Time: Yes Total Critical Care Time: 55 Attestation: I spent 55 minutes of Critical Care Time with this patient. This does not include time spent on separately reported billable procedures. Discharge Plan Discharge Clinical Impression: Nausea & vomiting, Hypertension, CKD (chronic kidney disease), Cellulitis Patient Disposition: Admitted As Inpatient
--- NOTE | 2023-04-13 06:50 | ECG_ITS ---
Test Reason : nausea vomiting Blood Pressure : / mmHG Vent. Rate : 116 BPM Atrial Rate : 116 BPM P-R Int : 150 ms QRS Dur : 142 ms QT Int : 346 ms P-R-T Axes : 051 000 -03 degrees QTc Int : 480 ms Sinus tachycardia Possible Left atrial enlargement Right bundle branch block T wave abnormality, consider inferior ischemia Abnormal ECG When compared with ECG of 10-APR-2023 16:49, T wave inversion now evident in Inferior leads Inverted T waves have replaced nonspecific T wave abnormality in Anterior leads Nonspecific T wave abnormality, improved in Lateral leads Referred By: Adelaide Macias Electronically Signed By:Vinny Vera
[2023-04-13] MEDS: Metoclopramide HCl 10 MG/2 ML VIAL IVPUSH (07:41)
[2023-04-13] MEDS: hydrALAZINE HCl 20 MG/ML VIAL IVPUSH (07:41)
[2023-04-13 07:48] LABS: Lactic Acid 1.4 mmol/L (0.5-2.0)
[2023-04-13] MEDS: cefTRIAXone sodium 1 GM in 0.9 % Sodium Chloride 50 ML IV (07:52)
--- NOTE | 2023-04-13 08:30 | PC.NURSE ---
Addendum entered by Randi Lacy RN 04/13/23 08:37: addition: Pt difficult stick, antibiotic started late. Plan is for admission, pt aware. Original Note: Assumed care of this pt at 0700. Pt a+o x3, she reports 9/10 full body ache, pt actively vomiting, bp low 200s over low 100s. 20g iv placed L back forearm, meds given as documented, labs drawn. B/P reassessed and documented, will continue to monitor.
--- NOTE | 2023-04-13 08:52 | PHA.MEDREC ---
Pharmacy Consult ? Medication Reconciliation Pharmacy has completed the medication reconciliation. Used claim history and previous discharge list
[2023-04-13 10:15] LABS: Troponin-I High Sensitivity 43.5 ng/L (<3.5-17.0)
[2023-04-13] MEDS: ondansetron HCL 4 MG/2 ML VIAL IVPUSH ×2 (10:54→18:39)
--- NOTE | 2023-04-13 10:58 | PC.NURSE ---
this RN resumed care of pt at this time. pt tachycardic and hypertensive at this time. 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 pt c/o 10/10 generalized body pain at this time. pt actively vomiting. pt pending admission but one time order for zofran ordered by ED provider/administered by this RN. no sob/wob noted. respirations even and unlabored. pt waiting on bed assignment at this time. plan of care ongoing.
--- NOTE | 2023-04-13 11:12 | P.HPHOSP_ITS ---
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 She initially presented yesterday with nausea, vomiting, and elevated blood pressure and was given IV hydralazine in the ED with BP improvement, and ondansetron for nausea. There was also some concern for acute on chronic diabetic right foot infection and pt was discharged on p.o. antibiotics. However, when pt got home she found she was locked out of her house, and her blood pressure subsequently shot back up, and she began vomiting again. Upon arrival back to the ED patient's BP was 192/99. She was given an additional dose of IV hydralazine 20 mg and an additional dose of ondansetron and then metoclopramide 10mg IV. However patient has been unable to tolerate p.o. medication and was started on IV ceftriaxone. At time of interview and exam pt still complains of nausea but has been tolerating small sips of water. Complains of pain in her whole body , especially in her feet. No chest pain/pressure or SOB. Reports being compliant with home meds and went to dialysis yesterday. In the ED pt was patient was tachycardic up to 121 and hypertensive up to 219/114. Labs were grossly unremarkable and at baseline for patient. Baseline normocytic anemia of 9.8/28.7. No significant electrolyte abnormalities. Baseline renal function of BUN 26 with creatinine 3.57. Lactic acid WNL at 1.4. Hepatic function baseline. Initial troponin 43.5. X-ray of right foot showed no discrete cortical destructive changes or erosions to suspect osteomyelitis. CT?of head showed no acute intracranial abnormality including hemorrhage, mass effect, hydrocephalus, or acute territorial edematous in infarction. Did show stable sequela of bilateral sub retinal hemorrhages. EKG demonstrated sinus tachycardia of 116 with RBBB and T-wave inversions in inferior and anterior leads. Pt will be admitted to the hospital under observation for intractable nausea and vomiting and hypertensive urgency. Review of Systems 2 Review of Systems: Intractable nausea and vomiting Diffuse ?whole-body? pain No chest pain/pressure or palpitations Denies SOB PMFSH Medical History Diabetic foot Vomiting Renal failure Hypertension End-stage renal disease (ESRD) Anemia Hyperkalemia Metabolic acidosis HFrEF (heart failure with reduced ejection fraction) ESRD on dialysis Migraine Diabetic foot ulcer associated with type 2 diabetes mellitus Chronic pain Gastroparesis Non-compliance with renal dialysis Hypertension Hypertensive emergency Diabetes ESRD needing dialysis Cardiomyopathy delivery delivered Anemia in chronic kidney disease (CKD) CKD (chronic kidney disease) Headache, migraine Abnormal finding on echocardiogram Elevated troponin Chest pain Acute worsening of stage 3 chronic kidney disease Generalized edema Sepsis Cellulitis Pleural effusion CHF (congestive heart failure) (~06/07/22) Tachycardia Atypical chest pain Bone infection PAD (peripheral artery disease) Severe anemia Cellulitis and abscess of foot DM foot ulcer Osteomyelitis test positive test positive Asthma Depression with anxiety Diabetic retinopathy Type 2 diabetes mellitus with hyperglycemia, with long-term current use of insulin Blind right eye Diabetes Back pain Family History Mother Coronary artery disease Myocardial infarction Stroke Diabetes mellitus Father Myocardial infarction Surgical History 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 Social History Household Members: Family Household Members Other:: Sister, [id number], nephew Housing: Apartment Do you presently have visiting nurse or other home services: No Unable to assess alcohol history related to: Unknown Alcohol intake: never Comment: refuses camera Patient Tobacco Use Status: Never used Tobacco e-Cigarette/Vaping Use: Never Used Second Hand Smoke Exposure: No Advance Directives: Yes Advance Directives on File: Yes Advance Directives Date on File: 03/08/20 service: No Current occupational status: unemployed and disabled Gender identity: Female Meds Allergies Allergy/AdvReac Type Severity Reaction Status Date / Time morphine [MORPHINE] Allergy Intermediate Itching Verified 03/24/23 16:53 azithromycin [From Zithromax] Allergy Hives Verified 03/24/23 16:53 gabapentin Allergy Facial Verified 03/24/23 16:53 Swelling tramadol Allergy Facial Verified 03/24/23 16:53 Swelling vancomycin Allergy Anaphylaxis Verified 04/02/23 15:01 Home Medications Medication Instructions Recorded Confirmed Last Taken Type isosorbide mononitrate 30 mg 30 mg PO DAILY 03/11/23 04/13/23 03/20/23 History tablet,extended release 24 hr lidocaine 5 % topical patch 1 patch topical DAILY 03/11/23 04/13/23 03/20/23 History nifedipine 60 mg tablet,extended 60 mg PO DAILY 03/11/23 04/13/23 03/20/23 History release 24 hr oxycodone 5 mg tablet 5 mg PO Q6H PRN severe pain 03/11/23 04/13/23 03/20/23 History acetaminophen 325 mg tablet 650 mg PO Q4H PRN mild pain 03/20/23 04/13/23 Unknown History cholecalciferol (vitamin D3) 50 50 mcg PO DAILY 03/20/23 04/13/23 Unknown History mcg (2,000 unit) capsule sevelamer carbonate 0.8 gram oral 0.8 g PO TID 04/13/23 04/13/23 Unknown History powder packet Physical Exam 2 Vital Signs and Narrative: Vital Signs: Last Vital Signs Temp 99.2 F 04/13/23 10:48 Pulse 121 H 04/13/23 10:48 Resp 18 04/13/23 10:48 BP 219/114 H 04/13/23 10:48 Pulse Ox 96 04/13/23 10:48 O2 Del Method Room Air 04/13/23 10:48 BMI result Body Mass Index 25.9 Constitutional: Alert, looks unconfortable, in no acute distress. Mental Status: Oriented to person, place and time. Eyes: Pt legally blind in both eyes. Ear, Nose, and Throat: Oropharynx clear, mucous membranes moist. Ears and nose without deformities. Trachea midline. Respiratory: Clear to auscultation bilaterally. No wheezing, rales, or rhonchi. Cardiovascular: S1, S2, tachy. No murmurs, rubs, or gallops. Gastrointestinal: Abdomen soft, non-distended. Diffusely tender to palpation. Normal bowel sounds. Neurologic: Cranial nerves II-XII are grossly intact bilaterally. No focal neurological deficits. Moves all extremities spontaneously. Skin: Warm, dry. Musculoskeletal: No cyanosis or clubbing. Extremities: No edema. Right foot s/p TMA. Left foot with nonhealing chronic and foot ulcer as pictured below. No obvious erythema or induration. No foul odor appreciated. No obvious sign of infection. As pictures below. Psychiatric: Normal mood and affect. 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 Pt will be admitted to the hospital under observation for intractable nausea and vomiting and hypertensive urgency. Intractable nausea and vomiting Pt has been unable to tolerate p.o. since last night; has diffuse abd tenderness on exam Unclear etiology, but pt has had similar presentation in the past and extensive workup Will get CT of abd/pelvis wo contrast Continue Reglan, will give one-time dose of Compazine Clear liquid diet for now, advance as tolerated Hypertensive urgency BP as high as 219/114 in the ED Pt with long hx of hypertensive urgency/crisis/accelerated hypertension secondary to medication noncompliance Will treat with hyralazine 10mg IV prn for SBP>200 Resume home meds once can tolerate p.o. ESRD on HD //Sat Last dialyzed yesterday Pt has not been attending Sat dialysis from home d/t noncompliance Electrolytes currently WNL Nephrology consult Follow BMP Chronic diabetic left foot ulcer Concern for acute on chronic infection in ED and given abx Does not appear to be actively infected; x-ray negative for osteomyelitis; patient afebrile, no leukocytosis Wound care recommendations during admission 1 month ago: alginate Ag to wound bed with dry gauze, ABD pad and gauze wrap, changing daily F/U outpatient with wound care [id number] diabetes type 2 Patient noncompliant with medications Place on sliding scale insulin Diabetic diet once advanced Full Code Attending:? DVT Prophylaxis: Lovenox Pt will be admitted to the hospital under observation for treatment and further evaluation of hypertensive urgency and intractable nausea and vomiting. Quality Stroke Does the patient have a stroke diagnosis?: No VTE Prior VTE?: No VTE Risk Level:: Medical - moderate - high VTE Device Contraindication: Treatment Not Indicated VTE Drug Contraindication: N/A - Med Ordered
[2023-04-13] MEDS: Prochlorperazine Edisylate 10 MG/2 ML VIAL 5 MG IVPUSH (14:09)
[2023-04-13] MEDS: Pantoprazole Sodium 40 MG/10 ML VIAL IVPUSH (14:09)
[2023-04-13 14:12] LABS: HCG Quantitative < 2 mIU/mL
--- NOTE | 2023-04-13 14:15 | PC.NURSE ---
medication administered per provider order. pt c/o 12/05 generalized body pain. requesting medication/denies tylenol administration d/t not being able to tolerate PO administration. will notify admitting provider or pt's request.
--- NOTE | 2023-04-13 14:29 | PC.NURSE ---
pt to CT at this time.
--- NOTE | 2023-04-13 15:06 | PC.NURSE ---
requested medications put in MAR by admitting provider. this RN attempted to administer medications - pt refused IV toradol, PO hydralazine, and subq heparin. pt also refused for temperature to be obtained when vitals were taken. admitting provider notified that pt has refused medications. respirations remain even and unlabored. pt continues to wait for bed placement at this time. call moore placed within reach.
--- NOTE | 2023-04-13 16:29 | PC.NURSE ---
Pt enters my care- pt is resting comfortably- respirations even- no complaints at this time- pt refusing VS
--- NOTE | 2023-04-13 18:46 | PC.NURSE ---
Pt requesting pain medication- pt refused oxycodone- requesting Dilaudid
[2023-04-13 18:49] LABS: Glucose, Whole Blood 156 mg/dL (60-115)
--- NOTE | 2023-04-13 19:04 | PC.NURSE ---
Report given to Jody BETH
--- NOTE | 2023-04-13 20:17 | PC.NURSE ---
assumed care of the pt at 1900 - pt has been resting comfortably on the stretcher in no apparent distress. no episodes of vomiting noted. ED admission report complete. Transport notified. Pt to go upstairs to [facility].
--- NOTE | 2023-04-13 23:27 | PC.NURSE ---
Upon admission to unit, patient c/o 9/10 pain endorsing nausea and stated she vomited prior to coming up from the ED. MD Sewell notified of continued nausea and pain. No new orders at this time.
[2023-04-14 03:09] VITALS: BP 184/97; PULSE 97; RESP 20; TEMP 36.2; O2SAT 98
--- NOTE | 2023-04-14 10:17 | P.CONNP_ITS ---
History of Present Illness Reason for Consult Consult date: 04/14/23 Chief Complaint Chief complaint: Intractable nausea & vomiting, uncontrolled HTN History of Present Illness Narrative: 32 year old patient with history of ESRD admitted with hypertensive emergency. Patient has had multiple admission to the hospital and has missed several treatments. She complained on arrival of SOB, nausea and vomiting. At the time of the consultation she is having dialysis. Review of Systems Review of Systems 10 points ROS negative except for pertinent in HPI PMFSH Past Medical History Medical History (Updated 04/14/23 @ 10:20 by Jason Sanchez MD) Hypertension End-stage renal disease (ESRD) Anemia Diabetic foot Vomiting Renal failure Hypertension Hyperkalemia Metabolic acidosis HFrEF (heart failure with reduced ejection fraction) ESRD on dialysis Migraine Diabetic foot ulcer associated with type 2 diabetes mellitus Chronic pain Gastroparesis Non-compliance with renal dialysis Hypertension Hypertensive emergency Diabetes ESRD needing dialysis Cardiomyopathy delivery delivered Anemia in chronic kidney disease (CKD) CKD (chronic kidney disease) Headache, migraine Abnormal finding on echocardiogram Elevated troponin Chest pain Acute worsening of stage 3 chronic kidney disease Generalized edema Sepsis Cellulitis Pleural effusion CHF (congestive heart failure) (~06/07/22) Tachycardia Atypical chest pain Bone infection PAD (peripheral artery disease) Severe anemia Cellulitis and abscess of foot DM foot ulcer Osteomyelitis test positive test positive Asthma Depression with anxiety Diabetic retinopathy Type 2 diabetes mellitus with hyperglycemia, with long-term current use of insulin Blind right eye Diabetes Back pain Family History Family History Mother Coronary artery disease Myocardial infarction Stroke Diabetes mellitus Father Myocardial infarction Surgical History Surgical History 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 Social History Social History Household Members: Family Household Members Other:: Sister, [id number], nephew Housing: Apartment Do you presently have visiting nurse or other home services: Yes ([employer]) Unable to assess alcohol history related to: Unknown Alcohol intake: never Comment: refuses camera Patient Tobacco Use Status: Never used Tobacco e-Cigarette/Vaping Use: Never Used Second Hand Smoke Exposure: No Use of substances other than those prescribed or required for medical reasons: No Currently Displaying Signs/Symptoms of Drug Intoxication Withdrawal: No Have you been hit, kicked, punched, or otherwise hurt by someone within the past year? If so, by whom?: No Do you feel safe in your current relationship?: Yes Is there a partner from a previous relationship who is making you feel unsafe now?: No Are you made to feel afraid or neglected: No Advance Directives: Yes Advance Directives on File: Yes Advance Directives Date on File: 03/08/20 Do you have thoughts of harming others: None Do you have a plan to hurt others: No Plan Recently lost weight without trying: No Nutrition Risks: No Nutritional Risk Patient : No service: No Current occupational status: unemployed and disabled Gender identity: Female Meds Allergies Allergy/AdvReac Type Severity Reaction Status Date / Time morphine [MORPHINE] Allergy Intermediate Itching Verified 03/24/23 16:53 azithromycin [From Zithromax] Allergy Hives Verified 03/24/23 16:53 gabapentin Allergy Facial Verified 03/24/23 16:53 Swelling tramadol Allergy Facial Verified 03/24/23 16:53 Swelling vancomycin Allergy Anaphylaxis Verified 04/02/23 15:01 Active Medications: Current Medications Acetaminophen (Acetaminophen 325 Mg Tablet) 650 mg PO Q6H PRN PRN Reason: Pain, Mild (Pain Scale 1-3) Aspirin (Aspirin Enteric Coated 81 Mg Tablet.Dr) 81 mg PO DAILY [facility] Benzonatate (Benzonatate 100 Mg Capsule) 100 mg PO TID PRN PRN Reason: Cough Carvedilol (Carvedilol 25 Mg Tablet) 25 mg PO BID [facility]; Protocol Last Admin: 04/13/23 20:50 Dose: Not Given Clonidine HCl (Clonidine Hcl 0.1 Mg Tablet) 0.3 mg PO BID [facility]; Protocol Last Admin: 04/13/23 20:50 Dose: Not Given Docusate Sodium (Docusate Sodium 100 Mg Capsule) 100 mg PO DAILY PRN PRN Reason: Constipation Famotidine (Famotidine/Pf 20 Mg/2 Ml Vial) 20 mg IVPUSH DAILY [facility] Heparin Sodium (Porcine) (Heparin Sodium,Porcine 5,000 Unit/Ml Vial) 5,000 unit SUBCUT Q8H [facility] Last Admin: 04/14/23 05:56 Dose: Not Given Hydralazine HCl (Hydralazine Hcl 20 Mg/Ml Vial) 10 mg IVPUSH Q4H PRN; Protocol PRN Reason: SBP>200 Hydralazine HCl (Hydralazine Hcl 50 Mg Tablet) 100 mg PO TID [facility]; Protocol Last Admin: 04/13/23 20:50 Dose: Not Given Isosorbide Mononitrate (Isosorbide Mononitrate 30 Mg Tab.Er.24h) 30 mg PO DAILY [facility]; Protocol Losartan Potassium (Losartan Potassium 50 Mg Tablet) 50 mg PO DAILY [facility]; Protocol Melatonin (Melatonin 3 Mg Tablet) 6 mg PO BEDTIME PRN PRN Reason: Insomnia Metoclopramide HCl (Metoclopramide Hcl 10 Mg/2 Ml Vial) 5 mg IVPUSH Q4H PRN PRN Reason: Nausea Nifedipine (Nifedipine Er 60 Mg Tab.Er.24) 60 mg PO DAILY [facility]; Protocol Ondansetron HCl (Ondansetron Hcl 4 Mg/2 Ml Vial) 4 mg IVPUSH Q8H PRN PRN Reason: Nausea and Vomiting Last Admin: 04/13/23 18:39 Dose: 4 mg Oxycodone HCl (Oxycodone Hcl Immed Release 5 Mg Tablet) 5 mg PO Q6H PRN PRN Reason: Pain, Severe (Pain Scale 7-10) Sevelamer Carbonate (Sevelamer Carbonate Powder 800 Mg Powd.Pack) 800 mg PO TID [facility] Last Admin: 04/13/23 20:50 Dose: Not Given Sodium Bicarbonate (Sodium Bicarbonate 650 Mg Tablet) 650 mg PO TID [facility] Last Admin: 04/13/23 20:50 Dose: Not Given Sodium Chloride (0.9 % Sodium Chloride Flush 3 Ml Syringe) [facility] Last Admin: 04/13/23 22:54 Dose: Not Given Vitamin D (Cholecalciferol (Vitamin D3) 25 Mcg Tablet) 50 mcg PO DAILY [facility] Home Medications Medication Instructions Recorded Confirmed Last Taken Type isosorbide mononitrate 30 mg 30 mg PO DAILY 03/11/23 04/13/23 03/20/23 History tablet,extended release 24 hr lidocaine 5 % topical patch 1 patch topical DAILY 03/11/23 04/13/23 03/20/23 History nifedipine 60 mg tablet,extended 60 mg PO DAILY 03/11/23 04/13/23 03/20/23 History release 24 hr oxycodone 5 mg tablet 5 mg PO Q6H PRN severe pain 03/11/23 04/13/23 03/20/23 History acetaminophen 325 mg tablet 650 mg PO Q4H PRN mild pain 03/20/23 04/13/23 Unknown History cholecalciferol (vitamin D3) 50 50 mcg PO DAILY 03/20/23 04/13/23 Unknown Hi story mcg (2,000 unit) capsule sevelamer carbonate 0.8 gram oral 0.8 g PO TID 04/13/23 04/13/23 Unknown History powder packet Physical Exam Vital Signs: Last Vital Signs Temp 97.1 F 04/14/23 03:09 Pulse 97 04/14/23 03:09 Resp 20 04/14/23 03:09 BP 184/97 H 04/14/23 03:09 Pulse Ox 98 04/14/23 03:09 O2 Del Method Room Air 04/14/23 03:09 BMI result Body Mass Index 28.8 Const General: alert and awake HEENT Head: Yes normocephalic and Yes atraumatic Neck Neck: Yes supple Resp Auscultation: diminished lung sounds Cardio Heart sounds: S1 normal heart sound present and S2 normal heart sound present GI Palpation (GI): nontender Extrem General: Yes normal to inspection Assessment and Plan (1) End-stage renal disease (ESRD): Status: Acute (2) Hypertension: Status: Acute (3) Anemia: Status: Acute Plan known ESRD usually has HD t-t-s followed by Dr Siddiqi non adherence to medical regimen HFpEF nephrogenic anemia REC HD today optimize volume status VIPUL perr protocol \renal diet pghoisphate binders Procedures Date of Service Date of Service: 04/14/23
[2023-04-14] MEDS: oxyCODONE HCl Immed Release 5 MG TABLET PO (10:24)
[2023-04-14] MEDS: Famotidine/PF 20 MG/2 ML VIAL IVPUSH (11:53)
[2023-04-14] MEDS: ondansetron HCL 4 MG/2 ML VIAL IVPUSH ×2 (11:53→21:01)
--- NOTE | 2023-04-14 11:54 | P.PNIM_ITS ---
Subjective Subjective Date of Service: 04/14/23 Review of Systems Follow-up intractable nausea and vomiting, hypertensive urgency Still with headache, nausea and vomiting Physical Exam Vital Signs: Vital Signs: Last Vital Signs Temp 97.1 F 04/14/23 03:09 Pulse 97 04/14/23 03:09 Resp 20 04/14/23 03:09 BP 184/97 H 04/14/23 03:09 Pulse Ox 98 04/14/23 03:09 O2 Del Method Room Air 04/14/23 03:09 BMI result Body Mass Index 28.8 Appearing in no acute distress, blind lung sounds are clear to auscultation heart regular rate rhythm, clear S1, S2 positive bowel sounds, abdomen is soft, nontender neuro patient is alert x3, no focal deficits Charcot foot left side, quarter-size ulcer to plantar aspect of foot Quarter-size ulcer to plantar aspect of foot just below where her great toe would have been, history of TMA Objective Data Active Medications Acetaminophen (Acetaminophen 325 Mg Tablet) 650 mg PO Q6H PRN PRN Reason: Pain, Mild (Pain Scale 1-3) Aspirin (Aspirin Enteric Coated 81 Mg Tablet.Dr) 81 mg PO DAILY [facility] Benzonatate (Benzonatate 100 Mg Capsule) 100 mg PO TID PRN PRN Reason: Cough Carvedilol (Carvedilol 25 Mg Tablet) 25 mg PO BID [facility]; Protocol Last Admin: 04/13/23 20:50 Dose: Not Given Documented By: HARVINDER Non-Admin Reason: Nausea Clonidine HCl (Clonidine Hcl 0.1 Mg Tablet) 0.3 mg PO BID [facility]; Protocol Last Admin: 04/13/23 20:50 Dose: Not Given Documented By: HARVINDER Non-Admin Reason: Nausea Docusate Sodium (Docusate Sodium 100 Mg Capsule) 100 mg PO DAILY PRN PRN Reason: Constipation Famotidine (Famotidine/Pf 20 Mg/2 Ml Vial) 20 mg IVPUSH DAILY [facility] Heparin Sodium (Porcine) (Heparin Sodium,Porcine 5,000 Unit/Ml Vial) 5,000 unit SUBCUT Q8H [facility] Last Admin: 04/14/23 05:56 Dose: Not Given Documented By: HARVINDER Non-Admin Reason: Patient Refused Hydralazine HCl (Hydralazine Hcl 20 Mg/Ml Vial) 10 mg IVPUSH Q4H PRN; Protocol PRN Reason: SBP>200 Hydralazine HCl (Hydralazine Hcl 50 Mg Tablet) 100 mg PO TID [facility]; Protocol Last Admin: 04/13/23 20:50 Dose: Not Given Documented By: HARVINDER Non-Admin Reason: Nausea Isosorbide Mononitrate (Isosorbide Mononitrate 30 Mg Tab.Er.24h) 30 mg PO DAILY [facility]; Protocol Losartan Potassium (Losartan Potassium 50 Mg Tablet) 50 mg PO DAILY [facility]; Protocol Melatonin (Melatonin 3 Mg Tablet) 6 mg PO BEDTIME PRN PRN Reason: Insomnia Metoclopramide HCl (Metoclopramide Hcl 10 Mg/2 Ml Vial) 5 mg IVPUSH Q4H PRN PRN Reason: Nausea Nifedipine (Nifedipine Er 60 Mg Tab.Er.24) 60 mg PO DAILY [facility]; Protocol Ondansetron HCl (Ondansetron Hcl 4 Mg/2 Ml Vial) 4 mg IVPUSH Q8H PRN PRN Reason: Nausea and Vomiting Last Admin: 04/13/23 18:39 Dose: 4 mg Documented By: LIZ Oxycodone HCl (Oxycodone Hcl Immed Release 5 Mg Tablet) 5 mg PO Q6H PRN PRN Reason: Pain, Severe (Pain Scale 7-10) Last Admin: 04/14/23 10:24 Dose: 5 mg Documented By: LARRY Sevelamer Carbonate (Sevelamer Carbonate Powder 800 Mg Powd.Pack) 800 mg PO TID [facility] Last Admin: 04/13/23 20:50 Dose: Not Given Documented By: HARVINDER Non-Admin Reason: Nausea Sodium Bicarbonate (Sodium Bicarbonate 650 Mg Tablet) 650 mg PO TID [facility] Last Admin: 04/13/23 20:50 Dose: Not Given Documented By: HARVINDER Non-Admin Reason: Nausea Sodium Chloride (0.9 % Sodium Chloride Flush 3 Ml Syringe) [facility] Last Admin: 04/13/23 22:54 Dose: Not Given Documented By: HARVINDER Non-Admin Reason: Previously Administered Vitamin D (Cholecalciferol (Vitamin D3) 25 Mcg Tablet) 50 mcg PO DAILY [facility] Labs Labs: Laboratory Results - last 24 hr 04/13/23 04/13/23 09:49 18:42 POC Glucose 156 H Beta HCG, Quant < 2 Microbiology Microbiology Results: Microbiology 04/13/23 07:51 Blood Culture - Preliminary Blood - Venous No growth after 24 hours. 04/13/23 07:34 Blood Culture - Preliminary Blood - Venous No growth after 24 hours. 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 Pt will be admitted to the hospital under observation for intractable nausea and vomiting and hypertensive urgency. Intractable nausea and vomiting with headache Likely from diabetic gastroparesis Pt has been unable to tolerate p.o. since last night; has diffuse abd tenderness on exam has had similar presentations in the past and extensive workup Abdominal CT negative for acute abnormality Continue Reglan Clear liquid diet for now, advance as tolerated Hypertensive urgency BP as high as 219/114 in the ED Pt with long hx of hypertensive urgency/crisis/accelerated hypertension secondary to medication noncompliance Will treat with hyralazine 10mg IV prn for SBP>200 Resume home meds once can tolerate p.o. ESRD on HD /Sun Last dialyzed yesterday Pt has not been attending Sat dialysis from home d/t noncompliance Chronic diabetic left foot ulcer Does not appear to be actively infected; x-ray negative for osteomyelitis; patient afebrile, no leukocytosis alginate Ag to wound bed with dry gauze, ABD pad and gauze wrap, changing daily [id number] diabetes type 2 Patient noncompliant with medications ss, ada diet Full Code Attending:?Dr. Cavazos DVT Prophylaxis: Lovenox continue under observation for treatment and further evaluation of hypertensive urgency and intractable nausea and vomiting. Quality Stroke Does the patient have a stroke diagnosis?: No VTE Prior VTE?: No VTE Risk Level:: Medical - moderate - high VTE Device Contraindication: Treatment Not Indicated VTE Drug Contraindication: N/A - Med Ordered
[2023-04-14 11:58] VITALS: BP 153/73; PULSE 98; RESP 16; TEMP 36.3; O2SAT 93
[2023-04-14] MEDS: 0.9 % Sodium Chloride Flush 3 ML SYRINGE IVFLUSH ×3 (12:03→21:02)
[2023-04-14] MEDS: HYDROmorphone HCl 0.5 MG/0.5 ML SYRINGE IVPUSH ×3 (12:16→23:20)
--- NOTE | 2023-04-14 14:03 | MHC.CM.PN ---
IMM sent to pt.s sister per her request because she is legally blind. Pt lives with her sister, Josy, who is also her VETERINARY SURGERY TECHNICIAN. For medical equipment she has: wheelchair, home O2, she attend HD T. . . HCP is on file: Michael Taylor, PCP is: Abdon Chirag, Sister to transport home upon DC. CM to follow and assist with DC plan.
[2023-04-14] MEDS: Sevelamer Carbonate Powder 800 MG POWD.PACK PO (14:11)
[2023-04-14] MEDS: hydrALAZINE HCl 50 MG TABLET 100 MG PO (14:11)
[2023-04-14] MEDS: Sodium Bicarbonate 650 MG TABLET PO (14:11)
[2023-04-14 15:49] VITALS: BP 134/70; PULSE 88; RESP 16; TEMP 36.4; O2SAT 97
[2023-04-14] MEDS: Metoclopramide HCl 10 MG/2 ML VIAL 5 MG IVPUSH ×2 (16:06→23:20)
[2023-04-14 19:48] VITALS: BP 161/81; PULSE 87; RESP 20; TEMP 36.2; O2SAT 98
[2023-04-14 23:03] VITALS: BP 164/92; PULSE 94; RESP 20; TEMP 36.5; O2SAT 98
[2023-04-15] VITALS (8 sets, daily range): BP systolic 80–172; BP diastolic 45–83; PULSE 67–97; RESP 16–20; TEMP 36.1–36.9; O2SAT 96–100
[2023-04-15] MEDS: ondansetron HCL 4 MG/2 ML VIAL IVPUSH (04:06)
[2023-04-15] MEDS: Acetaminophen 325 MG TABLET 650 MG PO (06:24)
[2023-04-15] MEDS: HYDROmorphone HCl 0.5 MG/0.5 ML SYRINGE IVPUSH ×3 (06:25→18:36)
--- NOTE | 2023-04-15 08:41 | P.PNIM_ITS ---
Subjective Subjective Date of Service: 04/15/23 Review of Systems Follow-up intractable nausea and vomiting, hypertensive urgency Still with headache, some nausea and vomiting but better Physical Exam Vital Signs: Vital Signs: Last Vital Signs Temp 97.9 F 04/15/23 03:14 Pulse 97 04/15/23 03:14 Resp 20 04/15/23 03:14 BP 172/83 H 04/15/23 03:14 Pulse Ox 98 04/15/23 03:14 O2 Del Method Room Air 04/15/23 03:14 O2 Flow Rate 99 04/14/23 23:03 BMI result Body Mass Index 28.8 Appearing in no acute distress, blind lung sounds are clear to auscultation heart regular rate rhythm, clear S1, S2 positive bowel sounds, abdomen is soft, nontender neuro patient is alert x3, no focal deficits Charcot foot left side, quarter-size ulcer to plantar aspect of foot Quarter-size ulcer to plantar aspect of foot just below where her great toe would have been, history of TMA Objective Data Active Medications Acetaminophen (Acetaminophen 325 Mg Tablet) 650 mg PO Q6H PRN PRN Reason: Pain, Mild (Pain Scale 1-3) Last Admin: 04/15/23 06:24 Dose: 650 mg Documented By: GONZÁLEZ Aspirin (Aspirin Enteric Coated 81 Mg Tablet.Dr) 81 mg PO DAILY [facility] Last Admin: 04/14/23 12:18 Dose: Not Given Documented By: LARRY Non-Admin Reason: Patient Refused Benzonatate (Benzonatate 100 Mg Capsule) 100 mg PO TID PRN PRN Reason: Cough Carvedilol (Carvedilol 25 Mg Tablet) 25 mg PO BID [facility]; Protocol Last Admin: 04/14/23 21:09 Dose: Not Given Documented By: HARVINDER Non-Admin Reason: pt nausea/vomiting Clonidine HCl (Clonidine Hcl 0.1 Mg Tablet) 0.3 mg PO BID [facility]; Protocol Last Admin: 04/14/23 21:09 Dose: Not Given Documented By: HARVINDER Non-Admin Reason: pt nausea/vomiting Docusate Sodium (Docusate Sodium 100 Mg Capsule) 100 mg PO DAILY PRN PRN Reason: Constipation Famotidine (Famotidine/Pf 20 Mg/2 Ml Vial) 20 mg IVPUSH DAILY [facility] Last Admin: 04/14/23 11:53 Dose: 20 mg Documented By: LARRY Heparin Sodium (Porcine) (Heparin Sodium,Porcine 5,000 Unit/Ml Vial) 5,000 unit SUBCUT Q8H [facility] Last Admin: 04/15/23 06:29 Dose: Not Given Documented By: GONZÁLEZ Non-Admin Reason: Patient Refused Hydralazine HCl (Hydralazine Hcl 20 Mg/Ml Vial) 10 mg IVPUSH Q4H PRN; Protocol PRN Reason: SBP>200 Hydralazine HCl (Hydralazine Hcl 50 Mg Tablet) 100 mg PO TID [facility]; Protocol Last Admin: 04/14/23 21:10 Dose: Not Given Documented By: HARVINDER Non-Admin Reason: pt nausea/vomit Hydromorphone HCl (Hydromorphone Hcl 0.5 Mg/0.5 Ml Syringe) 0.5 mg IVPUSH Q6H PRN; Protocol PRN Reason: Pain, Moderate(Pain Scale 4-6) Last Admin: 04/15/23 06:25 Dose: 0.5 mg Documented By: GONZÁLEZ Isosorbide Mononitrate (Isosorbide Mononitrate 30 Mg Tab.Er.24h) 30 mg PO DAILY [facility]; Protocol Last Admin: 04/14/23 12:19 Dose: Not Given Documented By: LARRY Non-Admin Reason: Patient Refused Losartan Potassium (Losartan Potassium 50 Mg Tablet) 50 mg PO DAILY [facility]; Protocol Last Admin: 04/14/23 12:19 Dose: Not Given Documented By: LARRY Non-Admin Reason: Patient Refused Melatonin (Melatonin 3 Mg Tablet) 6 mg PO BEDTIME PRN PRN Reason: Insomnia Metoclopramide HCl (Metoclopramide Hcl 10 Mg/2 Ml Vial) 5 mg IVPUSH Q4H PRN PRN Reason: Nausea Last Admin: 04/14/23 23:20 Dose: 5 mg Documented By: GONZÁLEZ Nifedipine (Nifedipine Er 60 Mg Tab.Er.24) 60 mg PO DAILY [facility]; Protocol Last Admin: 04/14/23 12:19 Dose: Not Given Documented By: LARRY Non-Admin Reason: Patient Refused Ondansetron HCl (Ondansetron Hcl 4 Mg/2 Ml Vial) 4 mg IVPUSH Q8H PRN PRN Reason: Nausea and Vomiting Last Admin: 04/15/23 04:06 Dose: 4 mg Documented By: GONZÁLEZ Comments: early admin approved by dr. Sewell Oxycodone HCl (Oxycodone Hcl Immed Release 5 Mg Tablet) 5 mg PO Q6H PRN PRN Reason: Pain, Severe (Pain Scale 7-10) Last Admin: 04/14/23 10:24 Dose: 5 mg Sevelamer Carbonate (Sevelamer Carbonate Powder 800 Mg Powd.Pack) 800 mg PO TID [facility] Last Admin: 04/14/23 20:57 Dose: Not Given Documented By: HARVINDER Non-Admin Reason: Patient Refused Sodium Bicarbonate (Sodium Bicarbonate 650 Mg Tablet) 650 mg PO TID [facility] Last Admin: 04/14/23 21:10 Dose: Not Given Documented By: HARVINDER Non-Admin Reason: pt nausea/vomit Sodium Chloride (0.9 % Sodium Chloride Flush 3 Ml Syringe) 3 ml IVFLUSH QSHIFT [facility] Last Admin: 04/14/23 21:02 Dose: 3 ml Documented By: HARVINDER Vitamin D (Cholecalciferol (Vitamin D3) 25 Mcg Tablet) 50 mcg PO DAILY [facility] Last Admin: 04/14/23 12:19 Dose: Not Given Documented By: LARRY Non-Admin Reason: Patient Refused Microbiology Microbiology Results: Microbiology 04/13/23 07:51 Blood Culture - Preliminary Blood - Venous No growth after 24 hours. 04/13/23 07:34 Blood Culture - Preliminary Blood - Venous No growth after 24 hours. 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 Pt will be admitted to the hospital under observation for intractable nausea and vomiting and hypertensive urgency. Chronic diabetic left foot ulcer Does not appear to be actively infected tro left foot; x-ray negative for osteomyelitis; patient afebrile, no leukocytosis alginate Ag to wound bed with dry gauze, ABD pad and gauze wrap, changing daily Right footplantar wound with cream drainage and odor, eshcar, general surgery consult for debridement wound consult Intractable nausea and vomiting with headache Likely from diabetic gastroparesis Doing better now with Intermittent nausea and vomiting has had similar presentations in the past and extensive workup Abdominal CT negative for acute abnormality Continue Reglan patient requested regular diet Hypertensive urgency BP as high as 219/114 in the ED Pt with long hx of hypertensive urgency/crisis/accelerated hypertension secondary to medication noncompliance Will treat with hyralazine 10mg IV prn for SBP>200 Resume home meds, although patient often declines ESRD on HD //Sat Pt has not been attending Sat dialysis from home d/t noncompliance Dzo-[id number] diabetes type 2 Patient noncompliant with medications ss, ada diet Full Code Attending:?Dr. Cavazos DVT Prophylaxis: Lovenox continue under observation for treatment and further evaluation of hypertensive urgency and intractable nausea and vomiting. Quality Stroke Does the patient have a stroke diagnosis?: No VTE Prior VTE?: No VTE Risk Level:: Medical - moderate - high VTE Device Contraindication: Treatment Not Indicated VTE Drug Contraindication: N/A - Med Ordered
[2023-04-15] MEDS: Metoclopramide HCl 10 MG/2 ML VIAL 5 MG IVPUSH (08:55)
[2023-04-15] MEDS: 0.9 % Sodium Chloride Flush 3 ML SYRINGE IVFLUSH ×2 (08:55→15:12)
[2023-04-15] MEDS: carvediloL 25 MG TABLET PO (09:57)
[2023-04-15] MEDS: cloNIDine HCL 0.1 MG TABLET 0.3 MG PO (09:57)
[2023-04-15] MEDS: Aspirin Enteric Coated 81 MG TABLET.DR PO (09:57)
[2023-04-15] MEDS: NIFEdipine ER 60 MG TAB.ER.24 PO (09:57)
[2023-04-15] MEDS: hydrALAZINE HCl 50 MG TABLET 100 MG PO ×2 (09:58→15:10)
[2023-04-15] MEDS: Isosorbide Mononitrate 30 MG TAB.ER.24H PO (09:58)
[2023-04-15] MEDS: Losartan Potassium 50 MG TABLET PO (09:58)
[2023-04-15] MEDS: Famotidine/PF 20 MG/2 ML VIAL IVPUSH (10:14)
--- NOTE | 2023-04-15 10:49 | PM.CNGS ---
History of Present Illness Consult details Consult date: 04/15/23 Narrative: 32-year-old female with multiple medical problems including end-stage renal disease, hypertension, history of stroke, admitted 2 days ago because of hypertensive urgency as well as nausea and vomiting. Her CAT scan of the abdomen was unremarkable She also has this chronic ulcer on the plantar aspect the left foot. She now has an ulcer on the transmetatarsal site on the right foot She has had patient's the big toe as well as the 5th toe on the left as well. She actually had been seen by Dr. Arias just the week before last for foot problems and was scheduled for CT angiogram. She describes some foul smell from her ulcer on the right foot. Review of Systems Constitutional: Constitutional: Denies chills and Denies fever(s) Cardiovascular: Cardiovascular: Denies chest pain, Denies dyspnea and Denies dyspnea on exertion Respiratory: Respiratory: Denies cough, Denies dyspnea and Denies dyspnea on exertion Gastrointestinal: Gastrointestinal: Denies hematochezia and Denies change in bowel habits Genitourinary: Genitourinary: Denies hematuria Musculoskeletal: Musculoskeletal: Denies back pain and Denies limited range of motion Neurologic: Denies focal weakness and Denies convulsions Psychiatric: Psychiatric: Denies depression and Denies mood swings [facility] Past Medical History Medical History (Updated 04/18/23 @ 00:01 by Kane Mueller) Foot ulcer CKD (chronic kidney disease) Hypertension End-stage renal disease (ESRD) Anemia Diabetic foot Vomiting Renal failure Hypertension Hyperkalemia Metabolic acidosis HFrEF (heart failure with reduced ejection fraction) ESRD on dialysis Migraine Diabetic foot ulcer associated with type 2 diabetes mellitus Chronic pain Gastroparesis Non-compliance with renal dialysis Hypertension Hypertensive emergency Diabetes ESRD needing dialysis Cardiomyopathy delivery delivered Anemia in chronic kidney disease (CKD) CKD (chronic kidney disease) Headache, migraine Abnormal finding on echocardiogram Elevated troponin Chest pain Acute worsening of stage 3 chronic kidney disease Generalized edema Sepsis Cellulitis Pleural effusion CHF (congestive heart failure) (~06/07/22) Tachycardia Atypical chest pain Bone infection PAD (peripheral artery disease) Severe anemia Cellulitis and abscess of foot DM foot ulcer Osteomyelitis test positive test positive Asthma Depression with anxiety Diabetic retinopathy Type 2 diabetes mellitus with hyperglycemia, with long-term current use of insulin Blind right eye Diabetes Back pain Family History Family History Mother Coronary artery disease Myocardial infarction Stroke Diabetes mellitus Father Myocardial infarction Surgical History Surgical History 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 Social History Social History Household Members: Family Household Members Other:: Sister, [id number], nephew Housing: Apartment Do you presently have visiting nurse or other home services: Yes ([facility]) Unable to assess alcohol history related to: Unknown Alcohol intake: never Comment: refuses camera Patient Tobacco Use Status: Never used Tobacco e-Cigarette/Vaping Use: Never Used Second Hand Smoke Exposure: No Advance Directives Date on File: 03/08/20 service: No Current occupational status: unemployed and disabled Gender identity: Female Meds Allergies Allergy/AdvReac Type Severity Reaction Status Date / Time morphine [MORPHINE] Allergy Intermediate Itching Verified 03/24/23 16:53 azithromycin [From Zithromax] Allergy Hives Verified 03/24/23 16:53 gabapentin Allergy Facial Verified 03/24/23 16:53 Swelling tramadol Allergy Facial Verified 03/24/23 16:53 Swelling vancomycin Allergy Anaphylaxis Verified 04/02/23 15:01 Active Medications: Current Medications Acetaminophen (Acetaminophen 325 Mg Tablet) 650 mg PO Q6H PRN PRN Reason: Pain, Mild (Pain Scale 1-3) Last Admin: 04/15/23 06:24 Dose: 650 mg Aspirin (Aspirin Enteric Coated 81 Mg Tablet.Dr) 81 mg PO DAILY [facility] Last Admin: 04/15/23 09:57 Dose: 81 mg Benzonatate (Benzonatate 100 Mg Capsule) 100 mg PO TID PRN PRN Reason: Cough Carvedilol (Carvedilol 25 Mg Tablet) 25 mg PO BID [facility]; Protocol Last Admin: 04/15/23 09:57 Dose: 25 mg Clonidine HCl (Clonidine Hcl 0.1 Mg Tablet) 0.3 mg PO BID [facility]; Protocol Last Admin: 04/15/23 09:57 Dose: 0.3 mg Docusate Sodium (Docusate Sodium 100 Mg Capsule) 100 mg PO DAILY PRN PRN Reason: Constipation Famotidine (Famotidine/Pf 20 Mg/2 Ml Vial) 20 mg IVPUSH DAILY [facility] Last Admin: 04/15/23 10:14 Dose: 20 mg Heparin Sodium (Porcine) (Heparin Sodium,Porcine 5,000 Unit/Ml Vial) 5,000 unit SUBCUT Q8H [facility] Last Admin: 04/15/23 06:29 Dose: Not Given Hydralazine HCl (Hydralazine Hcl 20 Mg/Ml Vial) 10 mg IVPUSH Q4H PRN; Protocol PRN Reason: SBP>200 Hydralazine HCl (Hydralazine Hcl 50 Mg Tablet) 100 mg PO TID [facility]; Protocol Last Admin: 04/15/23 09:58 Dose: 100 mg Hydromorphone HCl (Hydromorphone Hcl 0.5 Mg/0.5 Ml Syringe) 0.5 mg IVPUSH Q6H PRN; Protocol PRN Reason: Pain, Moderate(Pain Scale 4-6) Last Admin: 04/15/23 06:25 Dose: 0.5 mg Isosorbide Mononitrate (Isosorbide Mononitrate 30 Mg Tab.Er.24h) 30 mg PO DAILY [facility]; Protocol Last Admin: 04/15/23 09:58 Dose: 30 mg Losartan Potassium (Losartan Potassium 50 Mg Tablet) 50 mg PO DAILY [facility]; Protocol Last Admin: 04/15/23 09:58 Dose: 50 mg Melatonin (Melatonin 3 Mg Tablet) 6 mg PO BEDTIME PRN PRN Reason: Insomnia Metoclopramide HCl (Metoclopramide Hcl 10 Mg/2 Ml Vial) 5 mg IVPUSH Q4H PRN PRN Reason: Nausea Last Admin: 04/15/23 08:55 Dose: 5 mg Nifedipine (Nifedipine Er 60 Mg Tab.Er.24) 60 mg PO DAILY [facility]; Protocol Last Admin: 04/15/23 09:57 Dose: 60 mg Ondansetron HCl (Ondansetron Hcl 4 Mg/2 Ml Vial) 4 mg IVPUSH Q8H PRN PRN Reason: Nausea and Vomiting Last Admin: 04/15/23 04:06 Dose: 4 mg Oxycodone HCl (Oxycodone Hcl Immed Release 5 Mg Tablet) 5 mg PO Q6H PRN PRN Reason: Pain, Severe (Pain Scale 7-10) Last Admin: 04/14/23 10:24 Dose: 5 mg Sevelamer Carbonate (Sevelamer Carbonate Powder 800 Mg Powd.Pack) 800 mg PO TID [facility] Last Admin: 04/15/23 10:14 Dose: Not Given Sodium Bicarbonate (Sodium Bicarbonate 650 Mg Tablet) 650 mg PO TID [facility] Last Admin: 04/15/23 10:14 Dose: Not Given Sodium Chloride (0.9 % Sodium Chloride Flush 3 Ml Syringe) 3 ml IVFLUSH QSHIFT [facility] Last Admin: 04/15/23 08:55 Dose: 3 ml Vitamin D (Cholecalciferol (Vitamin D3) 25 Mcg Tablet) 50 mcg PO DAILY [facility] Last Admin: 04/15/23 10:14 Dose: Not Given Home Medications Medication Instructions Recorded Confirmed Last Taken Type isosorbide mononitrate 30 mg 30 mg PO DAILY 03/11/23 04/13/23 03/20/23 History tablet,extended release 24 hr lidocaine 5 % topical patch 1 patch topical DAILY 03/11/23 04/13/23 03/20/23 History nifedipine 60 mg tablet,extended 60 mg PO DAILY 03/11/23 04/13/23 03/20/23 History release 24 hr oxycodone 5 mg tablet 5 mg PO Q6H PRN severe pain 03/11/23 04/13/23 03/20/23 History acetaminophen 325 mg tablet 650 mg PO Q4H PRN mild pain 03/20/23 04/13/23 Unknown History cholecalciferol (vitamin D3) 50 50 mcg PO DAILY 03/20/23 04/13/23 Unknown History mcg (2,000 unit) capsule sevelamer carbonate 0.8 gram oral 0.8 g PO TID 04/13/23 04/13/23 Unknown History powder packet Physical Exam Vital Signs: Vital Signs: Last Vital Signs Temp 97.1 F 04/15/23 08:00 Pulse 87 04/15/23 08:00 Resp 20 04/15/23 08:00 BP 130/70 04/15/23 08:00 Pulse Ox 99 04/15/23 08:00 O2 Del Method Room Air 04/15/23 08:00 O2 Flow Rate 99 04/14/23 23:03 BMI result Body Mass Index 28.8 Const: General: comfortable and no acute distress Resp: Effort & Inspection: normal respiratory effort Cardio: Rate: regular rate GI: Palpation (GI): Soft to palpation Extrem: Other: Left foot with a plantar ulcer, 2 by 2 cm, with thick necrotic callus; she has amputations on the 5th toe as well as the 1st toe Right foot with note of previous transmetatarsal amputation with note of an ulcer, foul smell, thick necrotic callus on the old transmetatarsal flap, 2 x 2 cm Results Labs Labs: All other labs normal. Imaging Additional studies: Laboratory Results POC Glucose 156 mg/dL (60-115) H 04/13/23 18:42 Lactic Acid 1.4 mmol/L (0.5-2.0) 04/13/23 07:34 Troponin I High Sens 43.5 ng/L (<3.5-17.0) H 04/13/23 09:49 Beta HCG, Quant < 2 mIU/mL 04/13/23 09:49 Impressions Abdomen/Pelvis CT 04/13/23 14:34 IMPRESSION: No acute findings. Enlarged heart and small right pleural effusion. Severe atherosclerotic disease. Fleischner guidelines were followed. Assessment and Plan (1) Foot ulcer: Status: Acute She has foot ulcers on the plantar aspect of the left foot as well as the metatarsal site of the right foot as described above. Both of these have thick callus with some foul smell on the ulcer on the right foot I proceeded to do sharp excisional debridement using scissors to remove the thick callus on each site. About 2 x 2 cm of the area was debrided on the left as well as on the right side. There was no pus her debridement. The foul smell may be secondary to necrosis of the skin and subcutaneous fat from the callus I applied dry dressings and wrapped both feet with Agueda rolls She probably will benefit from daily wound care with dry dressings I would recommend consulting Dr. Arias as well as he had ordered for a CT angiogram recently. Procedures Date of Service Date of Service: 04/19/23
[2023-04-15] MEDS: Albumin Human 25 % 100 ML IV ×2 (21:33→22:24)
[2023-04-15] MEDS: Sevelamer Carbonate Powder 800 MG POWD.PACK PO (21:37)
[2023-04-16] VITALS (11 sets, daily range): BP systolic 84–116; BP diastolic 51–68; PULSE 71–88; RESP 18–20; TEMP 36.1–36.7; O2SAT 98–100
--- NOTE | 2023-04-16 | ECG_ITS ---
Test Reason : hypotension Blood Pressure : / mmHG Vent. Rate : 071 BPM Atrial Rate : 071 BPM P-R Int : 162 ms QRS Dur : 148 ms QT Int : 498 ms P-R-T Axes : 051 002 127 degrees QTc Int : 541 ms Sinus rhythm with occasional Premature ventricular complexes Possible Left atrial enlargement Right bundle branch block Abnormal ECG When compared with ECG of 13-APR-2023 08:59, Premature ventricular complexes are now Present Vent. rate has decreased BY 45 BPM Nonspecific T wave abnormality has replaced inverted T waves in Inferior leads Nonspecific T wave abnormality has replaced inverted T waves in Anterior leads Nonspecific T wave abnormality, worse in Lateral leads Referred By: Lee Sewell Electronically Signed By:
[2023-04-16] MEDS: 0.9 % Sodium Chloride Flush 3 ML SYRINGE IVFLUSH ×4 (00:07→20:48)
[2023-04-16] MEDS: Albumin Human 25 % 100 ML IV ×4 (00:41→17:59)
--- NOTE | 2023-04-16 01:09 | PC.NURSE ---
Pt manual at 20:40 BP at 80/46 Pt does state has some dizziness. No other s/s. Holding BP lowering meds. notified - new order albumin bottle x2. After one albumin BP 84/45. After second bottle BP 84/45. Pt still has mild dizziness. notified- new orders for trop, EKG and 4 more bottles albumin Pt was bladder scanned at 17:15 per prev RN for 369. Upon this RN coming into room ~2044 pt stated she did void. Rn bladder scanned pt for 341 at 2044. Pt refuses straight cath at this time. aware. Reported off onto next 2299 RN
--- NOTE | 2023-04-16 02:00 | PC.NURSE ---
EKG sent to Dr Sewell. updated that patient refused lab draw for troponin.Also updated MD that patient continues to request Dilaudid for pain.She declines Tylenol.BP sl improved to 104/58.Dr Sewell states no Dilaudid .Pt updated and told she will be receiving more Albumin.Heat pack applied for comfort.
[2023-04-16] MEDS: cloNIDine HCL 0.1 MG TABLET 0.3 MG PO (09:12)
[2023-04-16] MEDS: Aspirin Enteric Coated 81 MG TABLET.DR PO (09:17)
[2023-04-16] MEDS: Sevelamer Carbonate Powder 800 MG POWD.PACK PO ×2 (09:17→15:41)
[2023-04-16] MEDS: Famotidine/PF 20 MG/2 ML VIAL IVPUSH (09:17)
--- NOTE | 2023-04-16 10:44 | PM.PNNEP ---
Subjective Subjective Date of Service: 04/16/23 Interval history: seen and examined no complaints Physical Exam Vital Signs: Vital Signs: Last Vital Signs Temp 97.5 F 04/16/23 08:00 Pulse 84 04/16/23 08:00 Resp 20 04/16/23 08:00 BP 108/61 04/16/23 08:00 Pulse Ox 99 04/16/23 08:00 O2 Del Method Room Air 04/16/23 08:00 O2 Flow Rate 99 04/14/23 23:03 BMI result Body Mass Index 28.8 Const: General: alert and awake HEENT: Head: Yes normocephalic and Yes atraumatic Neck: Neck: Yes supple Resp: Auscultation: diminished lung sounds Cardio: Heart sounds: S1 normal heart sound present and S2 normal heart sound present GI: Palpation (GI): nontender Extrem: General: Yes normal to inspection Objective Data Microbiology Microbiology Results: Microbiology 04/13/23 07:51 Blood - Venous Blood Culture - Preliminary No growth after 48 hours. 04/13/23 07:34 Blood - Venous Blood Culture - Preliminary No growth after 48 hours. Procedures Date of Service Date of Service: 04/16/23 Assessment & Plan Assessment and plan (1) End-stage renal disease (ESRD): Status: Acute (2) Hypertension: Status: Acute (3) Anemia: Status: Acute Plan known ESRD usually has HD t-t-s followed by Dr Siddiqi non adherence to medical regimen HFpEF nephrogenic anemia REC HD tomorrow VIPUL per protocol renal diet P binders dc sodium bicarbonate reduce hydralazine 50 mg tid if SBP remains low Time Spent With Patient Time: Total time managing care of this patient today ____ minutes. Progress Note: Quality Stroke Does the patient have a stroke diagnosis?: No
--- NOTE | 2023-04-16 10:45 | HO.WOUND ---
Wound Consult: Initial 32yr old [place] admitted [place] [facility] - See progress notes and H&P for detailed history. Wound consult placed for Chronic Left Plantar Wound and new right foot wound - present on admission. Recent [place] [facility] [place] see chart for details. Of note Dr. Rajput to bedside per direct care team and patient reports and performed bedside debridement for both wounds, see his note for details. Left Plantar Foot Etiology: Diabetic Foot wound Measurements: 1cm x 0.8cm x 0.4cm Wound Bed: Moist pale pink tissue noted Drainage / Odor: no odor noted - no drainage noted Edges: ? callused Pao wound: ? No Induration, No Fluctuance, No Erythema, No Warmth - no S/S of active infection Pain: Denies reports neuropathy Goals of Treatment: ? Alginate / Hydrofiber for moisture management and antimicrobial properties. Right Foot Etiology: Diabetic Foot wound Measurements: 0.6cm x 0.3cm x 0.3cm Wound Bed: Moist red tissue noted Drainage / Odor: no odor noted - sanguineous drainage noted on dressing Edges: ? callused Pao wound: ? No Induration, No Fluctuance, No Erythema, No Warmth - no S/S of active infection Pain: Denies reports neuropathy Goals of Treatment: ? Alginate / Hydrofiber for moisture management and antimicrobial properties. Recommendations: 1. Turn and Reposition every 2 hours and as needed for patient comfort. 2. Off Load all bony prominences with use of pillows and heel boots as needed. 3. Provide adequate and supplemental nutrition. 4. Maintain blood glucose levels per Providers orders. 5. Left Plantar foot and Right Foot - Off Load Pressure - Cleanse with NS, Pat dry. Apply cut to size Alginate / Durafiber AGl to wound bed followed by dry gauze, Abd Pad, gauze wrap secure with tape. Change every other day.
--- NOTE | 2023-04-16 15:25 | P.PNIM_ITS ---
Subjective Subjective Date of Service: 04/16/23 Review of Systems Follow-up intractable nausea and vomiting, hypertensive urgency Still with headache, some nausea and vomiting but better Physical Exam Vital Signs: Vital Signs: Last Vital Signs Temp 96.9 F 04/16/23 15:01 Pulse 77 04/16/23 15:01 Resp 20 04/16/23 15:01 BP 114/62 04/16/23 15:01 Pulse Ox 98 04/16/23 15:01 O2 Del Method Room Air 04/16/23 15:01 O2 Flow Rate 99 04/14/23 23:03 BMI result Body Mass Index 28.8 Appearing in no acute distress lung sounds are clear to auscultation heart regular rate rhythm, clear S1, S2 positive bowel sounds, abdomen is soft, nontender neuro patient is alert x3, no focal deficits Objective Data Active Medications Acetaminophen (Acetaminophen 325 Mg Tablet) 650 mg PO Q6H PRN PRN Reason: Pain, Mild (Pain Scale 1-3) Last Admin: 04/15/23 06:24 Dose: 650 mg Documented By: GONZÁLEZ Aspirin (Aspirin Enteric Coated 81 Mg Tablet.Dr) 81 mg PO DAILY [facility] Last Admin: 04/16/23 09:17 Dose: 81 mg Documented By: LARRY Benzonatate (Benzonatate 100 Mg Capsule) 100 mg PO TID PRN PRN Reason: Cough Carvedilol (Carvedilol 25 Mg Tablet) 25 mg PO BID [facility]; Protocol Last Admin: 04/15/23 20:52 Dose: Not Given Documented By: ANASTASIIA Non-Admin Reason: Decreased Blood Pressure Clonidine HCl (Clonidine Hcl 0.1 Mg Tablet) 0.3 mg PO BID [facility]; Protocol Last Admin: 04/16/23 09:12 Dose: 0.3 mg Documented By: LARRY Docusate Sodium (Docusate Sodium 100 Mg Capsule) 100 mg PO DAILY PRN PRN Reason: Constipation Famotidine (Famotidine/Pf 20 Mg/2 Ml Vial) 20 mg IVPUSH DAILY [facility] Last Admin: 04/16/23 09:17 Dose: 20 mg Documented By: LARRY Heparin Sodium (Porcine) (Heparin Sodium,Porcine 5,000 Unit/Ml Vial) 5,000 unit SUBCUT Q8H [facility] Last Admin: 04/16/23 13:51 Dose: Not Given Documented By: LARRY Non-Admin Reason: Patient Refused Hydralazine HCl (Hydralazine Hcl 20 Mg/Ml Vial) 10 mg IVPUSH Q4H PRN; Protocol PRN Reason: SBP>200 Hydralazine HCl (Hydralazine Hcl 50 Mg Tablet) 100 mg PO TID [facility]; Protocol Last Admin: 04/15/23 21:34 Dose: Not Given Documented By: ANASTASIIA Non-Admin Reason: Decreased Blood Pressure Albumin Human (Kedbumin 25 %) 100 mls @ 100 mls/hr IV Q6H [facility]AS[facility] Stop: 04/16/23 19:29 Last Infusion: 04/16/23 13:00 Dose: Infused Documented By: LARRY Isosorbide Mononitrate (Isosorbide Mononitrate 30 Mg Tab.Er.24h) 30 mg PO DAILY [facility]; Protocol Last Admin: 04/15/23 09:58 Dose: 30 mg Documented By: LARRY Losartan Potassium (Losartan Potassium 50 Mg Tablet) 50 mg PO DAILY [facility]; Protocol Last Admin: 04/15/23 09:58 Dose: 50 mg Documented By: LARRY Melatonin (Melatonin 3 Mg Tablet) 6 mg PO BEDTIME PRN PRN Reason: Insomnia Metoclopramide HCl (Metoclopramide Hcl 10 Mg/2 Ml Vial) 5 mg IVPUSH Q4H PRN PRN Reason: Nausea Last Admin: 04/15/23 08:55 Dose: 5 mg Documented By: LARRY Nifedipine (Nifedipine Er 60 Mg Tab.Er.24) 60 mg PO DAILY [facility]; Protocol Last Admin: 04/15/23 09:57 Dose: 60 mg Documented By: LARRY Ondansetron HCl (Ondansetron Hcl 4 Mg/2 Ml Vial) 4 mg IVPUSH Q8H PRN PRN Reason: Nausea and Vomiting Last Admin: 04/15/23 04:06 Dose: 4 mg Documented By: GONZÁLEZ Comments: early admin approved by dr. Sewell Oxycodone HCl (Oxycodone Hcl Immed Release 5 Mg Tablet) 5 mg PO Q6H PRN PRN Reason: Pain, Severe (Pain Scale 7-10) Last Admin: 04/14/23 10:24 Dose: 5 mg Sevelamer Carbonate (Sevelamer Carbonate Powder 800 Mg Powd.Pack) 800 mg PO TID [facility] Last Admin: 04/16/23 09:17 Dose: 800 mg Documented By: LARRY Sodium Chloride (0.9 % Sodium Chloride Flush 3 Ml Syringe) 3 ml IVFLUSH QSHIFT [facility] Last Admin: 04/16/23 09:16 Dose: 3 ml Documented By: LARRY Vitamin D (Cholecalciferol (Vitamin D3) 25 Mcg Tablet) 50 mcg PO DAILY [facility] Last Admin: 04/16/23 09:17 Dose: Not Given Documented By: LARRY Non-Admin Reason: Patient Refused Assessment and Plan (1) Hypertension: Status: Acute (2) End-stage renal disease (ESRD): Status: Acute (3) Nausea & vomiting: Status: Acute Plan Pt is a 32-year-old female with a PMH significant for?ESRD on dialysis Sun/Sun/Sun (though refuses to attend Sat dialysis), 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 Pt will be admitted to the hospital under observation for intractable nausea and vomiting and hypertensive urgency. Hypotension Asymptomatic BP medications stopped for morning. will resume coreg, Isosorbide, hydralazine decreased to 50 mg TID continue to hold losartan, nifedipine monitor BP overnight Chronic diabetic left foot ulcer Does not appear to be actively infected to left foot; x-ray negative for osteomyelitis; patient afebrile, no leukocytosis alginate Ag to wound bed with dry gauze, ABD pad and gauze wrap, changing daily Right footplantar wound with cream drainage and odor, esar, general surgery consult for debridement wound consult> left plantar foot and right foot, offload pressure, clean with normal saline, apply alginate/dura fiber Ag I to wound bed, gauze and ABD, change every other day Intractable nausea and vomiting with headache Likely from diabetic gastroparesis Doing better now with Intermittent nausea and vomiting has had similar presentations in the past and extensive workup Abdominal CT negative for acute abnormality Continue Reglan patient requested regular diet Hypertensive urgency BP as high as 219/114 in the ED Pt with long hx of hypertensive urgency/crisis/accelerated hypertension secondary to medication noncompliance Will treat with hyralazine 10mg IV prn for SBP>200 Resume home meds, although patient often declines ESRD on HD //Sat Pt has not been attending Sat dialysis from home d/t noncompliance Cej-vozbruj-slpuujixd diabetes type 2 Patient noncompliant with medications ss, ada diet Full Code Attending:?Dr. Cavazos DVT Prophylaxis: Lovenox continue under observation for treatment and further evaluation of hypertensive urgency and intractable nausea and vomiting. Quality Stroke Does the patient have a stroke diagnosis?: No VTE Prior VTE?: No VTE Risk Level:: Medical - moderate - high VTE Device Contraindication: Treatment Not Indicated VTE Drug Contraindication: N/A - Med Ordered
[2023-04-16] MEDS: ondansetron HCL 4 MG/2 ML VIAL IVPUSH (16:37)
[2023-04-16 20:25] LABS: Glucose, Whole Blood 204 mg/dL (60-115)
[2023-04-16] MEDS: Insulin Lispro 100 UNIT/ML 3 ML VIAL SUBCUT (20:48)
[2023-04-17 03:29] VITALS: BP 126/70; PULSE 91; RESP 20; TEMP 36.3; O2SAT 99
[2023-04-17 07:55] VITALS: BP 141/82; PULSE 91; RESP 18; TEMP 36.9; O2SAT 98
--- NOTE | 2023-04-17 08:19 | MHC.CM.PN ---
Addendum entered by Ksenia Villafuerte RN 04/17/23 09:54: IMM 04/17/23 DELIVERED TO BEDSIDE, [LACED IN ENVELOPE W/REJI ON ENVELOPE PT IS LEGALLY BLIND. Original Note: ANTIC PT WILL DC HOME W/RESUMP OF FAMILY SUPPORT/[employer] HRS/HOME O2 AND HD [facility], PER PREVIOUS NOTE CM PT'S SISTER FOR TRANSPORT
--- NOTE | 2023-04-17 09:20 | PM.DS ---
DS: Providers Provider Date of Service: 04/17/23 Date of admission: 04/13/23 13:16 Primary care physician: Unknown Physician Consults: 04/13/23 13:31 Consult to Nephrology Routine Consulting Provider: [facility] Reason for consultation: Pt needs HD tomorrow 04/13/23 21:01 Consult to Wound Care Routine Reason for consultation: diabetic foot ulcers 04/15/23 08:40 Consult to General Surgery Routine Consulting Provider: [facility] Reason for consultation: right foot, plantar wound DS: Diagnosis Discharge Diagnosis (1) Hypertension: Status: Acute (2) End-stage renal disease (ESRD): Status: Acute (3) Nausea & vomiting: Status: Acute DS: Summary Hospital Course Hospital Course: History and physical as per admitting provider. 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 She initially presented yesterday with nausea, vomiting, and elevated blood pressure and was given IV hydralazine in the ED with BP improvement, and ondansetron for nausea. There was also some concern for acute on chronic diabetic right foot infection and pt was discharged on p.o. antibiotics. However, when pt got home she found she was locked out of her house, and her blood pressure subsequently shot back up, and she began vomiting again. Upon arrival back to the ED patient's BP was 192/99. She was given an additional dose of IV hydralazine 20 mg and an additional dose of ondansetron and then metoclopramide 10mg IV. However patient has been unable to tolerate p.o. medication and was started on IV ceftriaxone. At time of interview and exam pt still complains of nausea but has been tolerating small sips of water. Complains of pain in her whole body , especially in her feet. No chest pain/pressure or SOB. Reports being compliant with home meds and went to dialysis yesterday. In the ED pt was patient was tachycardic up to 121 and hypertensive up to 219/114. Labs were grossly unremarkable and at baseline for patient. Baseline normocytic anemia of 9.8/28.7. No significant electrolyte abnormalities. Baseline renal function of BUN 26 with creatinine 3.57. Lactic acid WNL at 1.4. Hepatic function baseline. Initial troponin 43.5. X-ray of right foot showed no discrete cortical destructive changes or erosions to suspect osteomyelitis. CT?of head showed no acute intracranial abnormality including hemorrhage, mass effect, hydrocephalus, or acute territorial edematous in infarction. Did show stable sequela of bilateral sub retinal hemorrhages. EKG demonstrated sinus tachycardia of 116 with RBBB and T-wave inversions in inferior and anterior leads. Pt will be admitted to the hospital under observation for intractable nausea and vomiting and hypertensive urgency. 32-year-old woman treated for intractable nausea and vomiting with history of diabetic gastroparesis, treated with antiemetics, narcotic IV pain medication, Reglan. Abdominal CT scan negative for acute abnormality. Very similar presentation that she has had in the past with extensive workup. Her symptoms have improved significantly at this point. She was also noted to have hypertensive urgency, she has a longstanding history of hypertensive urgency/crisis/accelerated hypertension secondary to medication non adherence. Her home medications were resumed although patient declined some off and on but her blood pressure did come down significantly, almost too low with systolic blood pressure in the 80s. Patient was mildly symptomatic with dizziness but systolic blood pressure rebounding into the 110's and now 140s at time of discharge. Patient should continue all of her medications as prescribed, her hydralazine was decreased to 50 mg t.i.d.. She stated understanding he will be discharged home. Chronic diabetic left foot ulcer. Some noted drainage to new right foot plantar wound. Seen evaluated by General surgery, debrided both left and right foot plantar wounds. Had foot x-ray that was negative for osteomyelitis. Patient was afebrile with no leukocytosis. Wound care orders for right foot wound, alginate Ag to wound bed with dry gauze, ABD pad and gauze wrap, change every other day. She needs to follow up at wound care clinic End-stage renal disease on dialysis. She was scheduled to have dialysis today but she declined, she was not hypoxic not noted to have edema. She will follow-up with her next scheduled dialysis appointment on . Diabetes mellitus type 2. Mostly nonadherent with medications at home, she was treated with sliding scale and ADA diet while inpatient. Time Attestation Discharge coordination time: Greater than 30 minutes Quality: Safe Use of Opioids Does Pt have an Active Cancer Diagnosis on the Problem List?: No Quality: Stroke Does the patient have a stroke diagnosis?: No Physical Exam Vital Signs: Vital Signs: Last Vital Signs Temp 98.4 F 04/17/23 07:55 Pulse 91 04/17/23 07:55 Resp 18 04/17/23 07:55 BP 141/82 H 04/17/23 07:55 Pulse Ox 98 04/17/23 07:55 O2 Del Method Room Air 04/17/23 07:55 O2 Flow Rate 99 04/14/23 23:03 BMI result Body Mass Index 28.8 Appearing in no acute distress head is normocephalic atraumatic eyes pupils are PERRLA sclera is anicteric mouth throat mucous membranes are intact and moist neck is supple no lymphadenopathy, no JVD noted lung sounds are clear to auscultation heart regular rate rhythm, clear S1, S2 positive bowel sounds, abdomen is soft, nontender neuro patient is alert x3, no focal deficits Charcot foot left side, quarter-size ulcer to plantar aspect of foot Quarter-size ulcer to plantar aspect of foot just below where her great toe would have been, history of TMA DS: Data Data Completed and Pending Completed studies during hospitalization [Text1]: Procedures Detachment at Right Foot, Partial 1st Ray, Open Approach (03/01/20) Detachment at Right Foot, Partial 2nd Ray, Open Approach (03/01/20) Detachment at Right Foot, Partial 3rd Ray, Open Approach (03/01/20) Detachment at Right Foot, Partial 4th Ray, Open Approach (03/01/20) Detachment at Right Foot, Partial 5th Ray, Open Approach (03/01/20) Drainage of Right Pleural Cavity, Percutaneous Approach (01/14/21) Excision of Left Foot Skin, External Approach (03/10/23) Excision of Stomach, Pylorus, Via Natural or Artificial Opening Endoscopic, Diagnostic (08/27/22) Fluoroscopy of Superior Vena Cava, Guidance (08/14/22) Insertion of Infusion Device into Right Atrium, Percutaneous Approach (08/14/22) Insertion of Infusion Device into Superior Vena Cava, Percutaneous Approach (01/14/21) Insertion of Tunneled Vascular Access Device into Chest Subcutaneous Tissue and Fascia, Percutaneous Approach (08/14/22) Performance of Urinary Filtration, Intermittent, Less than 6 Hours Per Day (03/24/23) Removal of Infusion Device from Great Vessel, External Approach (01/14/21) Transfusion of Nonautologous Red Blood Cells into Peripheral Vein, Percutaneous Approach (04/22/22) Labs on day of discharge: Laboratory Results - last 24 hr 04/16/23 20:21 POC Glucose 204 H Preliminary micro results at discharge 04/13/23 07:51 Blood Culture - Preliminary Blood - Venous No growth after 48 hours. 04/13/23 07:34 Blood Culture - Preliminary Blood - Venous No growth after 48 hours. Discharge Plan Discharge Anticipated Discharge Date/Time: 04/17/23 09:15 Patient Disposition: Home, Self-Care Discharge Diagnosis: Hypotension Chronic diabetic left foot ulcer Intractable nausea and vomiting with headache Hypertensive urgency Discharge Medications: Continued isosorbide mononitrate 30 mg tablet extended release 24 hr 30 mg PO DAILY nifedipine 60 mg tablet extended release 24hr 60 mg PO DAILY lidocaine 5 % adhesive patch,medicated 1 patch topical DAILY oxycodone 5 mg tablet 5 mg PO Q6H PRN (Reason: severe pain) (DME) off loading boot Kit See Rx Instructions .Route Qty: 1 0RF Rx Instructions: As directed aspirin 81 mg Tablet,Delayed Release (Dr/Ec) 81 mg PO DAILY Qty: 30 0RF cholecalciferol (vitamin D3) 50 mcg (2,000 unit) capsule 50 mcg PO DAILY acetaminophen 325 mg tablet 650 mg PO Q4H PRN (Reason: mild pain) sodium bicarbonate 650 mg Tablet 650 mg PO TID Qty: 90 0RF carvedilol 25 mg tablet 25 mg PO BID Qty: 60 0RF Rx Instructions: must administer with a meal/food losartan 50 mg tablet 50 mg PO DAILY Qty: 30 0RF clonidine HCl 0.1 mg Tablet 0.3 mg PO BID Qty: 60 0RF Protocol: Hold for SBP< HOLD for SBP < : 90 sevelamer carbonate 0.8 gram powder in packet 0.8 g PO TID Changed hydralazine 100 mg tablet 50 mg PO TID Qty: 90 0RF Discontinued amoxicillin-pot clavulanate 875-125 mg tablet 1 tab PO BID Qty: 20 0RF Discharge Orders: Discharge Order (Routine); Ordered 04/17/23 Ordered By: Tawny Taylor Diet: Advance to usual diet Activity on Discharge: As tolerated Stand Alone Forms: Patient Portal Discharge page Care Plan Goals: Check blood pressures on a daily basis and document to share with primary care provider or air intercept controller Health Concerns: Hypotension Chronic diabetic left foot ulcer Intractable nausea and vomiting with headache Hypertensive urgency Plan of Treatment: Follow-up with primary care provider as needed Continue dialysis as scheduled, declined dialysis to 2023 Take all medications as prescribed Assessment: See discharge summary
[2023-04-17] MEDS: Aspirin Enteric Coated 81 MG TABLET.DR PO (10:56)
[2023-04-17] MEDS: Famotidine/PF 20 MG/2 ML VIAL IVPUSH (10:56)
[2023-04-17] MEDS: carvediloL 25 MG TABLET PO (10:57)
[2023-04-17] MEDS: cloNIDine HCL 0.1 MG TABLET 0.3 MG PO (11:04)
[2023-04-17] MEDS: Sevelamer Carbonate Powder 800 MG POWD.PACK PO (11:08)
== END 2023-04-17 13:44 | disposition home or self-care (01) ==
LOC: HO.ED 08:11 → HO.EDOVER 13:36 → HO.IMC 19:31
PROVIDERS: Family Medicine; Physician Assistant Medical; Admitting Provider Student in an Organized Health Care Education/Training Program; Emergency Provider Student in an Organized Health Care Education/Training Program; PCP Internal Medicine; Visit Provider Nurse Practitioner Acute Care
DX: I16.0 Hypertensive urgency (principal); E11.621 Type 2 diabetes mellitus with foot ulcer; R11.2 Nausea with vomiting, unspecified; I13.2 Hypertensive heart and chronic kidney disease with heart failure and with stage 5 chronic kidney disease, or end stage renal disease; E11.22 Type 2 diabetes mellitus with diabetic chronic kidney disease; N18.6 End stage renal disease; I50.9 Heart failure, unspecified; D63.1 Anemia in chronic kidney disease; Z99.2 Dependence on renal dialysis; L03.90 Cellulitis, unspecified; E11.40 Type 2 diabetes mellitus with diabetic neuropathy, unspecified; E11.319 Type 2 diabetes mellitus with unspecified diabetic retinopathy without macular edema; R10.9 Unspecified abdominal pain; J90 Pleural effusion, not elsewhere classified; I70.90 Unspecified atherosclerosis; R51.9 Headache, unspecified; H54.8 Legal blindness, as defined in USA; Z89.411 Acquired absence of right great toe; Z89.422 Acquired absence of other left toe(s); Z89.421 Acquired absence of other right toe(s); L84 Corns and callosities
CPT/HCPCS: 11056; 36415; 74176; 82947; 83605; 84484; 84702; 87040; 93005; 96365; 96366; 96367; 96375; 96376; 97597; 99222; 99285; C9113; J0360; J0696; J0737; J1170; J2405; J2765; P9047

== ENCOUNTER → 2023-04-13 06:50 | Outpatient (BNV) | payer OTHER, SELFPAY | PROVIDERS: Admitting Provider Student in an Organized Health Care Education/Training Program; Emergency Provider Student in an Organized Health Care Education/Training Program; Visit Provider Internal Medicine Cardiovascular Disease | DX: R00.0 Tachycardia, unspecified (principal); R94.31 Abnormal electrocardiogram [ECG] [EKG] | CPT/HCPCS: 93010 ==

== ENCOUNTER → 2023-04-13 13:16 | Outpatient (BNV) | payer OTHER, SELFPAY | PROVIDERS: Admitting Provider Student in an Organized Health Care Education/Training Program; Emergency Provider Student in an Organized Health Care Education/Training Program; Visit Provider Nurse Practitioner Acute Care | DX: I12.0 Hypertensive chronic kidney disease with stage 5 chronic kidney disease or end stage renal disease (principal); N18.6 End stage renal disease; R11.2 Nausea with vomiting, unspecified | CPT/HCPCS: 99222; 99232; 99238 ==

== ENCOUNTER → 2023-04-13 13:16 | Outpatient (BNV) | payer OTHER, SELFPAY | PROVIDERS: Admitting Provider Student in an Organized Health Care Education/Training Program; Emergency Provider Student in an Organized Health Care Education/Training Program; PCP Internal Medicine; Visit Provider Surgery | DX: L97.529 Non-pressure chronic ulcer of other part of left foot with unspecified severity (principal); L97.519 Non-pressure chronic ulcer of other part of right foot with unspecified severity | CPT/HCPCS: 97597; 99222 ==

== ENCOUNTER 2023-04-27 13:48 | Inpatient (IN) | payer OTHER, SELFPAY ==
[2023-04-27] VITALS (8 sets, daily range): BP systolic 173–235; BP diastolic 103–136; PULSE 82–103; RESP 16–20; TEMP 36.1–36.6; O2SAT 95–99; BMI 24.2; BMI 26.0
--- NOTE | ~2023-04-27 | XR_ITS ---
EXAMINATION: Chest and abdomen. CLINICAL INDICATIONS: Chest pain abdominal pain. COMPARISON: CT abdomen pelvis 04/13/2023 and chest 04/10/2023. TECHNIQUE: Chest one view. Abdomen 2 views. FINDINGS: CHEST: The lungs are well-expanded and clear. Heart size and pulmonary vascularity is normal. There is right central venous dialysis catheter with its tip in distal SVC. ABDOMEN: There is scattered stool and gas in colon without significant distention. There is no organomegaly. No radiopaque renal calculi seen. The gallbladder has been surgically removed. No gross bony abnormality seen. XR/XR abdomen min 2V IMPRESSION: Unremarkable chest exam. Unremarkable KUB.
--- NOTE | ~2023-04-27 | XR_ITS ---
EXAMINATION: Chest and abdomen. CLINICAL INDICATIONS: Chest pain abdominal pain. COMPARISON: CT abdomen pelvis 04/13/2023 and chest 04/10/2023. TECHNIQUE: Chest one view. Abdomen 2 views. FINDINGS: CHEST: The lungs are well-expanded and clear. Heart size and pulmonary vascularity is normal. There is right central venous dialysis catheter with its tip in distal SVC. ABDOMEN: There is scattered stool and gas in colon without significant distention. There is no organomegaly. No radiopaque renal calculi seen. The gallbladder has been surgically removed. No gross bony abnormality seen. XR/XR chest 1V IMPRESSION: Unremarkable chest exam. Unremarkable KUB.
--- NOTE | 2023-04-27 13:54 | ECG_ITS ---
Test Reason : PAIN Blood Pressure : / mmHG Vent. Rate : 103 BPM Atrial Rate : 103 BPM P-R Int : 154 ms QRS Dur : 142 ms QT Int : 410 ms P-R-T Axes : 070 -09 023 degrees QTc Int : 537 ms Sinus tachycardia Possible Left atrial enlargement Right bundle branch block Abnormal ECG When compared with ECG of 16-APR-2023 00:32, Inverted T waves have replaced nonspecific T wave abnormality in Anterior leads Nonspecific T wave abnormality, improved in Lateral leads Referred By: Michele Putnam Electronically Signed By:JASKARAN COOL
--- NOTE | 2023-04-27 13:57 | ED_ITS ---
HPI - General Adult General Chief complaint: Abdominal Pain Stated complaint: ABD PAIN MISSED DIALYSIS APPT Time Seen by Provider: 04/27/23 14:19 Source: patient Mode of arrival: wheelchair Limitations: no limitations History of Present Illness HPI narrative: Patient is blind, poor controlled diabetes with ESRD on dialysis, patient is noncompliant, amputated transmetatarsal on right, and some toes on left. She presents with right scapula pain to touch and abdominal pain. Nausea no vomiting or diarrhea. Pain has been for 2 weeks Onset (ago): week(s) Related Data Home Medications Medication Instructions Recorded Confirmed isosorbide mononitrate 30 mg 30 mg PO DAILY 03/11/23 04/13/23 tablet,extended release 24 hr lidocaine 5 % topical patch 1 patch topical DAILY 03/11/23 04/13/23 nifedipine 60 mg tablet,extended 60 mg PO DAILY 03/11/23 04/13/23 release 24 hr oxycodone 5 mg tablet 5 mg PO Q6H PRN severe pain 03/11/23 04/13/23 acetaminophen 325 mg tablet 650 mg PO Q4H PRN mild pain 03/20/23 04/13/23 cholecalciferol (vitamin D3) 50 50 mcg PO DAILY 03/20/23 04/13/23 mcg (2,000 unit) capsule sevelamer carbonate 0.8 gram oral 0.8 g PO TID 04/13/23 04/13/23 powder packet Previous Rx's Medication Instructions Recorded aspirin 81 mg tablet,delayed 81 mg PO DAILY #30 tabs 01/29/23 release off loading boot #1 ea 03/14/23 carvedilol 25 mg tablet 25 mg PO BID #60 tabs 03/22/23 losartan 50 mg tablet 50 mg PO DAILY #30 tabs 03/22/23 sodium bicarbonate 650 mg tablet 650 mg PO TID #90 tabs 03/22/23 clonidine HCl 0.1 mg tablet 0.3 mg PO BID #60 tabs 03/28/23 hydralazine 100 mg tablet 50 mg (1/2 x 100 mg) PO TID #90 04/17/23 tabs Allergies Allergy/AdvReac Type Severity Reaction Status Date / Time morphine [MORPHINE] Allergy Intermediate Itching Verified 03/24/23 16:53 azithromycin [From Zithromax] Allergy Hives Verified 03/24/23 16:53 gabapentin Allergy Facial Verified 03/24/23 16:53 Swelling tramadol Allergy Facial Verified 03/24/23 16:53 Swelling vancomycin Allergy Anaphylaxis Verified 04/02/23 15:01 Review of Systems 2 Review of Systems: Yes all other systems are reviewed and are negative Neurologic: Denies Sensory deficit (Neuro) [facility] Past Medical History Medical History Foot ulcer CKD (chronic kidney disease) Hypertension End-stage renal disease (ESRD) Anemia Diabetic foot Vomiting Renal failure Hypertension Hyperkalemia Metabolic acidosis HFrEF (heart failure with reduced ejection fraction) ESRD on dialysis Migraine Diabetic foot ulcer associated with type 2 diabetes mellitus Chronic pain Gastroparesis Non-compliance with renal dialysis Hypertension Hypertensive emergency Diabetes ESRD needing dialysis Cardiomyopathy delivery delivered Anemia in chronic kidney disease (CKD) CKD (chronic kidney disease) Headache, migraine Abnormal finding on echocardiogram Elevated troponin Chest pain Acute worsening of stage 3 chronic kidney disease Generalized edema Sepsis Cellulitis Pleural effusion CHF (congestive heart failure) (~06/07/22) Tachycardia Atypical chest pain Bone infection PAD (peripheral artery disease) Severe anemia Cellulitis and abscess of foot DM foot ulcer Osteomyelitis test positive test positive Asthma Depression with anxiety Diabetic retinopathy Type 2 diabetes mellitus with hyperglycemia, with long-term current use of insulin Blind right eye Diabetes Back pain Surgical History 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 Family History Family History Mother Coronary artery disease Myocardial infarction Stroke Diabetes mellitus Father Myocardial infarction Social History Social History Household Members: Family Household Members Other:: Sister, [id number], nephew Housing: Apartment Do you presently have visiting nurse or 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) Unable to assess alcohol history related to: Unknown Alcohol intake: never Comment: refuses camera Patient Tobacco Use Status: Never used Tobacco e-Cigarette/Vaping Use: Never Used Second Hand Smoke Exposure: No Advance Directives: Yes Advance Directives on File: Yes Advance Directives Date on File: 03/08/20 service: No Current occupational status: unemployed and disabled Gender identity: Female Physical Exam ED Vital Signs: Vital Signs - 24 hr 04/27/23 13:52 04/27/23 14:35 04/27/23 17:23 Temperature 97.6 F 97.8 F 97.3 F Pulse Rate 103 H 96 Respiratory Rate 20 18 Blood Pressure 235/136 H 205/118 H Pulse Oximetry 98 96 Oxygen Delivery Method Room Air Room Air BMI result Body Mass Index 24.2 Const Other: blind female chronically ill looking much older than stated age Orientation/consciousness: oriented to person and patient oriented x3 Limitations: no limitations HENMT Head: Yes normal to inspection Ears: external ears normal General nose exam: Normal external nose present Mouth: Normal oral and palatal mucosa present and oropharynx normal Throat: Yes posterior oropharynx normal Eyes Other: bilatera blindness Neck Neck: Yes normal visual inspection Chest Other: right portacath in right upper chest Resp Auscultation: clear to auscultation bilaterally Cardio Jugular venous distension: no JVD Rate: regular rate Rhythm: regular rhythm Heart sounds: S1 normal heart sound present and S2 normal heart sound present GI Inspection: Yes normal to inspection Palpation (GI): Soft to palpation, nontender and No hepatosplenomegaly present Auscultation: normal bowel sounds General: Yes no CVA tenderness Back/Spine/Pelvis Back: no CVA tenderness Skin Other: right foot with transmetarsal amputation, with a single ulcer not infected, left foot with multiple toe amputation with 2 ulcers not infected Neuro General: oriented to person and patient oriented x3 Cranial nerves: Yes CN's II-XII intact bilaterally Motor exam (neuro): 5/5 motor strength present throughout Sensory Exam: No Sensory deficit (Neuro) Extrem Other: Right foot transmetatarsal, left foot with multiple toe amputation Psych Appearance: grossly normal Course Course Course Narrative: RME- 32 year old female presents for evaluation of chest pain, abdominal pain and right shoulder pain. She reports her symptoms started over 2 weeks ago, her last dialysis treatment was when she was admitted here over 2 weeks ago. She is hypertensive in triage. Plan for cardiac workup Reevaluation(s) Reevaluation #1: patient with chronic pain, diarrhea not caring for herself. Right scapula pain appears to be muscular skeletal, abdomen is nontender. Patient is not uremic and her K is normal will not need emergent dialysis. Will dc home. Reinforce that she needs dialysis soon as her bicarb is 12. Time: 16:56 Reevaluation #2: Discussed with Dr. Ruiz, because of the bicarbonate he would admit and dialysis in the morning Time: 17:22 Reevaluation #3: I spent 40 minutes of critical care, with interventions, assessments, speaking to patient, consultants, and family. Time: 17:22 Medications Administered Discontinued Medications Generic Name Dose Route Start Last Admin Trade Name Freq PRN Reason Stop Dose Admin Belladonna Alkaloids/Phenobarbital 10 ml 04/27/23 16:42 04/27/23 17:20 Phenobarb/Hyoscy/Atropine/Scop 10 Ml Elixir PO 04/27/23 16:43 10 ml ONCE ONE Administration Ondansetron HCl 4 mg 04/27/23 16:42 04/27/23 17:19 Ondansetron Odt 4 Mg Tab.Rapdis TRANSLINGU 04/27/23 16:43 4 mg ONCE ONE Administration Oxycodone HCl 5 mg 04/27/23 16:42 04/27/23 17:19 Oxycodone Hcl Immed Release 5 Mg Tablet PO 04/27/23 16:43 5 mg ONCE ONE Administration Medical Decision Making Differential Diagnosis Differential Diagnoses: The differential diagnosis associated with the presentation includes (uremia, hyperkalemia, pneumonia, chronic diarrhea, pancreatitis, hepatitis were all considered) Admission/Observation Consideration of admission/observation: Escalation of care including admission/observation considered (upon arrival patient considered for admission) Lab Data MDM Lab Attestation statement: I reviewed the patient's lab results. 04/27/23 15:21 04/27/23 15:21 Labs: Lab Results 04/27/23 04/27/23 Range/Units 15:21 15:23 WBC 5.3 (4.8-10.8) X10*3/uL RBC 3.04 L (4.20-5.50) X10*6/uL Hgb 9.3 L (12.0-16.0) g/dl Hct 27.1 L (37.0-47.0) % MCV 89.1 (80.0-98.0) fL MCH 30.6 (27.0-33.0) pg MCHC 34.3 (31.0-35.0) g/dl RDW 14.9 (11.0-16.0) % Plt Count 195 D (160-400) X10*3/uL MPV 11.0 (9.4-12.3) fL Immature Gran % (Auto) 0.4 (0.0-0.4) % Neut % (Auto) 79.7 H (45-73) % Lymph % (Auto) 10.3 L (20-40) % [place] % (Auto) 6.2 (2-11) % Eos % (Auto) 2.8 (0-4) % Baso % (Auto) 0.6 (0-2) % Lymph # (Auto) 0.6 L (1.2-4.9) X10*3/uL [place] # (Auto) 0.3 (0.1-1.2) X10*3/uL Eos # (Auto) 0.2 (0.0-0.4) X10*3/uL Baso # (Auto) 0.0 (0.0-0.2) X10*3/uL Abs Immat Gran (auto) 0.02 (0.00-0.03) X10*3/uL Absolute Neuts (auto) 4.3 (2.0-8.3) x10*3/uL Absolute Nucleated RBC 0.000 (0.0-0.012) X10*3/uL Nucleated RBC % (auto) 0.0 (0.0-0.2) /100WBC Sodium 138 (135-145) mmol/L Potassium 4.3 (3.3-5.1) mmol/L Chloride 113 H (96-108) mmol/L Carbon Dioxide 12 L (22-29) mmol/L Anion Gap 17 (12-20) BUN 96 H (9-16) mg/dL Creatinine 7.49 H* (0.5-1.4) mg/dL Estim Creat Clear Calc 9.9 Estimated GFR 6 Random Glucose 86 (60-115) mg/dL Calcium 8.4 (8.4-10.2) mg/dL Total Bilirubin 0.9 (0.0-1.0) mg/dL AST 17 (5-31) U/L ALT 20 (0-31) U/L Alkaline Phosphatase 179 H (39-117) U/L Troponin I High Sens 26.8 H (<3.5-17.0) ng/L Total Protein 7.7 (6.5-8.0) g/dL Albumin 3.5 (3.5-5.0) g/dL Lipase 43 (8-78) U/L Influenza Type A (PCR) NEGATIVE (Negative) Influenza Type B (PCR) NEGATIVE (Negative) RSV RNA Qual (PCR) NEGATIVE (Negative) SARS-CoV-2 RNA (RT-PCR) NEGATIVE (Negative) Independent Interpretation I performed an independent interpretation of an: Plain X-Ray (CXR: no infiltrate large heart, abd: normal bowel gas pattern) Independent Historian Clinical information obtained from an independent historian. History obtained from or confirmed by: EMS External Record Review External record reviewed: Outpatient record and Prior outpatient labs Tests considered The following testing was considered but not selected: CT of abdomen but patient was recently imaged Chronic Conditions Patient?s care impacted by: Diabetes, Hypertension and Other (renal failure) Social Determinants Patient?s care significantly limited by Social Determinants of Health including: Low income Discharge Plan Discharge Clinical Impression: Acidosis, Renal failure Patient Disposition: Admitted As Inpatient
[2023-04-27 15:26] LABS: MANUAL DIFF FLAG NO
[2023-04-27 15:33] LABS: Basophils Percent Auto 0.6 % (0-2); Eosinophils Absolute Auto 0.2 X10*3/uL (0.0-0.4); Eosinophils Percent Auto 2.8 % (0-4); Hematocrit 27.1 % (37.0-47.0); Hemoglobin 9.3 g/dl (12.0-16.0); Imm Gran Abs Auto 0.02 X10*3/uL (0.00-0.03); Imm Gran Pct Auto 0.4 % (0.0-0.4); Lymphocytes Absolute Auto 0.6 X10*3/uL (1.2-4.9); Lymphocytes Percent Auto 10.3 % (20-40); Mean Corpuscular HGB Conc 34.3 g/dl (31.0-35.0); Mean Corpuscular Hemoglobin 30.6 pg (27.0-33.0); Mean Corpuscular Volume 89.1 fL (80.0-98.0); Monocytes Absolute Auto 0.3 X10*3/uL (0.1-1.2); Monocytes Percent Auto 6.2 % (2-11); Neutrophils Absolute Auto 4.3 x10*3/uL (2.0-8.3); Neutrophils Percent Auto 79.7 % (45-73); Platelet Count 195 X10*3/uL (160-400); Red Blood Count 3.04 X10*6/uL (4.20-5.50); Red Cell Distribution Width 14.9 % (11.0-16.0); White Blood Count 5.3 X10*3/uL (4.8-10.8)
[2023-04-27 15:55] LABS: Troponin-I High Sensitivity 26.8 ng/L (<3.5-17.0)
[2023-04-27 16:01] LABS: Alanine Aminotransferase 20 U/L (0-31); Albumin Level 3.5 g/dL (3.5-5.0); Alkaline Phosphatase 179 U/L (39-117); Anion Gap 17 (12-20); Aspartate Amino Transferase 17 U/L (5-31); Bilirubin Total 0.9 mg/dL (0.0-1.0); Blood Urea Nitrogen 96 mg/dL (9-16); Calcium 8.4 mg/dL (8.4-10.2); Carbon Dioxide 12 mmol/L (22-29); Chloride 113 mmol/L (96-108); Creatinine Clr Calc Pharmacy 9.9; Estimated Glomerular Filt Rate 6; Glucose Random 86 mg/dL (60-115); Lipase 43 U/L (8-78); Potassium 4.3 mmol/L (3.3-5.1); Sodium 138 mmol/L (135-145); Total Protein 7.7 g/dL (6.5-8.0)
[2023-04-27 16:13] LABS: Influenza A PCR NEGATIVE (Negative); Influenza B PCR NEGATIVE (Negative); Resp Syncy Virus RNA Qual PCR NEGATIVE (Negative); SARS COV2 PCR INHOUSE NEGATIVE (Negative)
[2023-04-27] MEDS: Ondansetron ODT 4 MG TAB.RAPDIS TRANSLINGU (17:19)
[2023-04-27] MEDS: oxyCODONE HCl Immed Release 5 MG TABLET PO (17:19)
[2023-04-27] MEDS: PHENobarb/Hyoscy/Atropine/Scop 10 ML ELIXIR PO (17:20)
--- NOTE | 2023-04-27 17:24 | PC.NURSE ---
patient a&ox3, c/o 12/05 generalized pain, pt medicated per order, bilateral feet dressings intact, rt chest dialysis cath intact, call moore within reach, will continue to monitor
--- NOTE | 2023-04-27 17:43 | PHA.MEDREC ---
Pharmacy Consult ? Medication Reconciliation Pharmacy has completed the medication reconciliation. Patient just discharged 04/17/23, utilized discharge summary and claim history for med rec. Cintia Gaytan, JvD
[2023-04-27] MEDS: Sodium Bicarbonate 650 MG TABLET 1300 MG PO (17:46)
--- NOTE | 2023-04-27 18:48 | PM.IMHP ---
History of Present Illness Date of Service: 04/27/23 Chief Complaint: Missed dialysis 32-year-old female well known to this hospital service presents with abdominal pain and nausea having been noncompliant with her weekly dialysis. She states family member had COVID which preempted her transport to dialysis. By her recollection and has been 2 weeks since her last dialysis. Admitting bicarb 12 Review of Systems Review of Systems: Denies chest pain Denies shortness of breath Admits to nausea vomiting diarrhea Denies fever chills [facility] Medical History (Updated 04/27/23 @ 18:52 by Steve Shepherd DO) Hypertension End-stage renal disease (ESRD) Foot ulcer CKD (chronic kidney disease) Hypertension Anemia Diabetic foot Vomiting Renal failure Hypertension Hyperkalemia Metabolic acidosis HFrEF (heart failure with reduced ejection fraction) ESRD on dialysis Migraine Diabetic foot ulcer associated with type 2 diabetes mellitus Chronic pain Gastroparesis Non-compliance with renal dialysis Hypertensive emergency Diabetes ESRD needing dialysis Cardiomyopathy delivery delivered Anemia in chronic kidney disease (CKD) CKD (chronic kidney disease) Headache, migraine Abnormal finding on echocardiogram Elevated troponin Chest pain Acute worsening of stage 3 chronic kidney disease Generalized edema Sepsis Cellulitis Pleural effusion CHF (congestive heart failure) (~06/07/22) Tachycardia Atypical chest pain Bone infection PAD (peripheral artery disease) Severe anemia Cellulitis and abscess of foot DM foot ulcer Osteomyelitis test positive test positive Asthma Depression with anxiety Diabetic retinopathy Type 2 diabetes mellitus with hyperglycemia, with long-term current use of insulin Blind right eye Diabetes Back pain Family History Mother Coronary artery disease Myocardial infarction Stroke Diabetes mellitus Father Myocardial infarction Surgical History 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 Social History Household Members: Family Household Members Other:: Sister, [id number], nephew Housing: Apartment Do you presently have visiting nurse or 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) Unable to assess alcohol history related to: Unknown Alcohol intake: never Comment: refuses camera Patient Tobacco Use Status: Never used Tobacco e-Cigarette/Vaping Use: Never Used Second Hand Smoke Exposure: No Advance Directives: Yes Advance Directives on File: Yes Advance Directives Date on File: 03/08/20 service: No Current occupational status: unemployed and disabled Gender identity: Female Meds Allergies Allergy/AdvReac Type Severity Reaction Status Date / Time morphine [MORPHINE] Allergy Intermediate Itching Verified 03/24/23 16:53 azithromycin [From Zithromax] Allergy Hives Verified 03/24/23 16:53 gabapentin Allergy Facial Verified 03/24/23 16:53 Swelling tramadol Allergy Facial Verified 03/24/23 16:53 Swelling vancomycin Allergy Anaphylaxis Verified 04/02/23 15:01 Active Medications: Current Medications Acetaminophen (Acetaminophen 325 Mg Tablet) 650 mg PO Q6H PRN PRN Reason: Pain, Mild (Pain Scale 1-3) Al Hydroxide/Mg Hydroxide (Magnesium Hydrox/Alum Hydrox 30 Ml Oral.Susp) 30 ml PO Q4H PRN PRN Reason: Heartburn/Nausea Heparin Sodium (Porcine) (Heparin Sodium,Porcine 5,000 Unit/Ml Vial) 5,000 unit SUBCUT Q8H PENDING SALE TO [facility] Morphine Sulfate (Morphine Sulfate 4 Mg/Ml Cartridge) 4 mg IVPUSH Q4H PRN; Protocol PRN Reason: Pain, Severe (Pain Scale 7-10) Ondansetron HCl (Ondansetron Hcl 4 Mg/2 Ml Vial) 4 mg IVPUSH Q4H PRN PRN Reason: Nausea and Vomiting Oxycodone HCl (Oxycodone Hcl Immed Release 5 Mg Tablet) 10 mg PO Q6H PRN PRN Reason: Pain, Severe (Pain Scale 7-10) Sodium Chloride (0.9 % Sodium Chloride Flush 3 Ml Syringe) 3 ml IVFLUSH [facility] Home Medications Medication Instructions Recorded Confirmed Last Taken Type isosorbide mononitrate 30 mg 30 mg PO DAILY 03/11/23 04/27/23 03/20/23 History tablet,extended release 24 hr lidocaine 5 % topical patch 1 patch topical DAILY 03/11/23 04/27/23 03/20/23 History nifedipine 60 mg tablet,extended 60 mg PO DAILY 03/11/23 04/27/23 03/20/23 History release 24 hr oxycodone 5 mg tablet 5 mg PO Q6H PRN severe pain 03/11/23 04/27/23 03/20/23 History acetaminophen 325 mg tablet 650 mg PO Q4H PRN mild pain 03/20/23 04/27/23 Unknown History cholecalciferol (vitamin D3) 50 50 mcg PO DAILY 03/20/23 04/27/23 Unknown History mcg (2,000 unit) capsule sevelamer carbonate 0.8 gram oral 0.8 g PO TID 04/13/23 04/27/23 Unknown History powder packet Physical Exam Vital Signs and Narrative: Vital Signs: Last Vital Signs Temp 97.3 F 04/27/23 17:23 Pulse 96 04/27/23 17:23 Resp 18 04/27/23 17:23 BP 205/118 H 04/27/23 17:23 Pulse Ox 96 04/27/23 17:23 O2 Del Method Room Air 04/27/23 17:23 BMI result Body Mass Index 24.2 Const: Other: Awake alert uncomfortable appearing Resp: Other: Clear to auscultation bilaterally no rales rhonchi or wheezes Cardio: Other: No S4; positive S1-S2; no S3 murmurs rubs or gallops GI: Other: Soft nontender nondistended normoactive bowel sounds Extrem: Other: No edema bilaterally Results Labs 04/27/23 15:21 04/27/23 15:21 Labs: Laboratory Results - last 24 hr 04/27/23 04/27/23 15:21 15:23 MCV 89.1 MCH 30.6 MCHC 34.3 RDW 14.9 Plt Count 195 D MPV 11.0 Immature Gran % (Auto) 0.4 Neut % (Auto) 79.7 H Lymph % (Auto) 10.3 L [place] % (Auto) 6.2 Eos % (Auto) 2.8 Baso % (Auto) 0.6 Lymph # (Auto) 0.6 L [place] # (Auto) 0.3 Eos # (Auto) 0.2 Baso # (Auto) 0.0 Abs Immat Gran (auto) 0.02 Absolute Neuts (auto) 4.3 Absolute Nucleated RBC 0.000 Nucleated RBC % (auto) 0.0 Anion Gap 17 Estim Creat Clear Calc 9.9 Estimated GFR 6 Random Glucose 86 Calcium 8.4 Total Bilirubin 0.9 AST 17 ALT 20 Alkaline Phosphatase 179 H Troponin I High Sens 26.8 H Total Protein 7.7 Albumin 3.5 Lipase 43 Influenza Type A (PCR) NEGATIVE Influenza Type B (PCR) NEGATIVE RSV RNA Qual (PCR) NEGATIVE SARS-CoV-2 RNA (RT-PCR) NEGATIVE Imaging Radiologist's Impressions: Impressions Chest X-Ray 04/27/23 15:08 IMPRESSION: Unremarkable chest exam. Unremarkable KUB. Abdomen X-Ray 04/27/23 15:09 IMPRESSION: Unremarkable chest exam. Unremarkable KUB. 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 -admit with Renal consult; spoke with Dr. Ruiz who he will arrange HD in a.m. -oral bicarb this evening; further treatment as per Renal in a.m. -will treat abdominal pain nausea and vomiting as per usual with IV analgesia and Zofran 2. Diabetes type 2 Noncompliance again the issue. Unclear if any medicines at home -lispro correctional scale -diabetic diet -adjust as indicated 3. Hypertension Noncompliance with therapies. Per past admissions BP corrects when home therapies restarted -restart outpatient therapies -adjust as indicated Full code Heparin Patient will require at least 2 midnights to facilitate adequate dialysis given noncompliance. Patient is a high risk for outpatient therapy after just 1 encounter. This can not be achieved a lesser acute setting Quality Stroke Does the patient have a stroke diagnosis?: No VTE Prior VTE?: No VTE Risk Level:: Medical - moderate - high VTE Device Contraindication: Treatment Not Indicated VTE Drug Contraindication: N/A - Med Ordered
[2023-04-27] MEDS: ondansetron HCL 4 MG/2 ML VIAL IVPUSH (20:30)
[2023-04-27] MEDS: Morphine Sulfate 4 MG/ML CARTRIDGE IVPUSH (20:31)
[2023-04-27 20:44] LABS: Glucose, Whole Blood 116 mg/dL (60-115)
--- NOTE | 2023-04-27 21:18 | PC.NURSE ---
Patient elevated BP 199/125 pulse 102 addressed with ED RN Nely,IV Labetolol will be given in ED,Nursing health unit supervisor Payal notified
[2023-04-27] MEDS: Labetalol HCL 100 MG/20 ML VIAL 10 MG IVPUSH (21:34)
--- NOTE | 2023-04-27 23:18 | PC.NURSE ---
This literary writer assumed care of this Pt at 1900. Pt reports 10/10 right side pain. Reports nausea/vomiting. Pt is a dialysis Pt and not able to go d/t suspicious of covid. Pt has bilateral legs wrapped, states she has diabetic sores. Dressing intact, no draining noted. Family brought Pt food and Pt had one episode of N/V. IV line placed, Pt medicated per APR. Pt reports adverse reaction of itching to morphine, agreed to MED. Pt hypertensive, Provide Dr. Sewell made aware, new order given per APR. Report complete, Pt transported to to floor by central processing technician, Pt aware of plan.
[2023-04-28] VITALS (8 sets, daily range): BP systolic 158–190; BP diastolic 100–112; PULSE 83–102; RESP 19–20; TEMP 36.2–36.6; O2SAT 96–100
[2023-04-28] MEDS: 0.9 % Sodium Chloride Flush 3 ML SYRINGE IVFLUSH ×6 (00:27→20:26)
[2023-04-28] MEDS: Morphine Sulfate 4 MG/ML CARTRIDGE IVPUSH ×6 (00:27→23:09)
[2023-04-28] MEDS: ondansetron HCL 4 MG/2 ML VIAL IVPUSH ×6 (00:27→23:09)
--- NOTE | 2023-04-28 06:24 | PC.NURSE ---
Pt refused morning labs. Attempt x3 and patient continues to state no
--- NOTE | 2023-04-28 06:59 | PC.NURSE ---
MD Sewell aware of high BPs. to hold off on giving any thing more at this time as SBP initally 235 in ED.
[2023-04-28 10:41] LABS: MANUAL DIFF FLAG NO
[2023-04-28 10:44] LABS: Basophils Percent Auto 0.8 % (0-2); Eosinophils Absolute Auto 0.1 X10*3/uL (0.0-0.4); Eosinophils Percent Auto 2.8 % (0-4); Hematocrit 28.6 % (37.0-47.0); Hemoglobin 9.8 g/dl (12.0-16.0); Imm Gran Abs Auto 0.01 X10*3/uL (0.00-0.03); Imm Gran Pct Auto 0.3 % (0.0-0.4); Lymphocytes Absolute Auto 0.4 X10*3/uL (1.2-4.9); Lymphocytes Percent Auto 10.5 % (20-40); Mean Corpuscular HGB Conc 34.3 g/dl (31.0-35.0); Mean Corpuscular Hemoglobin 29.8 pg (27.0-33.0); Mean Corpuscular Volume 86.9 fL (80.0-98.0); Mean Platelet Volume 11.2 fL (9.4-12.3); Monocytes Absolute Auto 0.2 X10*3/uL (0.1-1.2); Monocytes Percent Auto 6.1 % (2-11); Neutrophils Absolute Auto 3.1 x10*3/uL (2.0-8.3); Neutrophils Percent Auto 79.5 % (45-73); Platelet Count 177 X10*3/uL (160-400); Red Blood Count 3.29 X10*6/uL (4.20-5.50); Red Cell Distribution Width 14.8 % (11.0-16.0); White Blood Count 3.9 X10*3/uL (4.8-10.8)
[2023-04-28 11:12] LABS: Alanine Aminotransferase 19 U/L (0-31); Albumin Level 3.9 g/dL (3.5-5.0); Alkaline Phosphatase 183 U/L (39-117); Anion Gap 14 (12-20); Aspartate Amino Transferase 19 U/L (5-31); Bilirubin Total 1.1 mg/dL (0.0-1.0); Blood Urea Nitrogen 39 mg/dL (9-16); Calcium 8.4 mg/dL (8.4-10.2); Carbon Dioxide 22 mmol/L (22-29); Chloride 101 mmol/L (96-108); Creatinine Clr Calc Pharmacy 23.2; Estimated Glomerular Filt Rate 15; Glucose Random 76 mg/dL (60-115); Sodium 134 mmol/L (135-145); Total Protein 8.6 g/dL (6.5-8.0)
[2023-04-28] MEDS: hydrALAZINE HCl 20 MG/ML VIAL 10 MG IVPUSH (12:40)
--- NOTE | 2023-04-28 14:02 | HO.PM.IMPN ---
Subjective Subjective Date of Service: 04/28/23 Interval History: No acute issues overnight. Still remains extremely nauseous with abdominal pain similar to past episodes Review of Systems Denies chest pain Denies shortness of breath Admits to nausea vomiting diarrhea Denies fever chills Physical Exam Vital Signs: Vital Signs: Last Vital Signs Temp 97.9 F 04/28/23 12:21 Pulse 98 04/28/23 12:21 Resp 20 04/28/23 12:21 BP 158/100 H 04/28/23 13:45 Pulse Ox 100 04/28/23 12:21 O2 Del Method Room Air 04/28/23 12:21 BMI result Body Mass Index 26.0 Const: Other: Awake alert uncomfortable appearing Resp: Other: Clear to auscultation bilaterally no rales rhonchi or wheezes Cardio: Other: No S4; positive S1-S2; no S3 murmurs rubs or gallops GI: Other: Soft nontender nondistended normoactive bowel sounds Extrem: Other: No edema bilaterally Objective Data Active Medications Acetaminophen (Acetaminophen 325 Mg Tablet) 650 mg PO Q4H PRN PRN Reason: mild pain Al Hydroxide/Mg Hydroxide (Magnesium Hydrox/Alum Hydrox 30 Ml Oral.Susp) 30 ml PO Q4H PRN PRN Reason: Heartburn/Nausea Aspirin (Aspirin Enteric Coated 81 Mg Tablet.) 81 mg PO DAILY [facility] Last Admin: 04/28/23 08:21 Dose: Not Given Documented By: CHET Non-Admin Reason: Off unit: Dialysis Carvedilol (Carvedilol 25 Mg Tablet) 25 mg PO BID [facility]; Protocol Last Admin: 04/28/23 08:21 Dose: Not Given Documented By: CHET Non-Admin Reason: Off unit: Dialysis Clonidine HCl (Clonidine Hcl 0.1 Mg Tablet) 0.3 mg PO BID [facility]; Protocol Last Admin: 04/28/23 08:21 Dose: Not Given Documented By: CHET Non-Admin Reason: Off unit: Dialysis Heparin Sodium (Porcine) (Heparin Sodium,Porcine 5,000 Unit/Ml Vial) 5,000 unit SUBCUT Q8H [facility] Last Admin: 04/28/23 10:59 Dose: Not Given Documented By: CHET Non-Admin Reason: Off unit: Dialysis Hydralazine HCl (Hydralazine Hcl 50 Mg Tablet) 50 mg PO TID [facility]; Protocol Last Admin: 04/28/23 08:22 Dose: Not Given Documented By: CHET Non-Admin Reason: Off unit: Dialysis Isosorbide Mononitrate (Isosorbide Mononitrate 30 Mg Tab.Er.24h) 30 mg PO DAILY [facility]; Protocol Last Admin: 04/28/23 08:22 Dose: Not Given Documented By: CHET Non-Admin Reason: Off unit: Dialysis Losartan Potassium (Losartan Potassium 50 Mg Tablet) 50 mg PO DAILY [facility]; Protocol Last Admin: 04/28/23 08:22 Dose: Not Given Documented By: CHET Non-Admin Reason: Off unit: Dialysis Morphine Sulfate (Morphine Sulfate 4 Mg/Ml Cartridge) 4 mg IVPUSH Q4H PRN; Protocol PRN Reason: Pain, Severe (Pain Scale 7-10) Last Admin: 04/28/23 12:22 Dose: 4 mg Documented By: CHET Nifedipine (Nifedipine Er 60 Mg Tab.Er.24) 60 mg PO DAILY [facility]; Protocol Last Admin: 04/28/23 08:22 Dose: Not Given Documented By: CHET Non-Admin Reason: Off unit: Dialysis Ondansetron HCl (Ondansetron Hcl 4 Mg/2 Ml Vial) 4 mg IVPUSH Q4H PRN PRN Reason: Nausea and Vomiting Last Admin: 04/28/23 12:23 Dose: 4 mg Documented By: CHET Oxycodone HCl (Oxycodone Hcl Immed Release 5 Mg Tablet) 10 mg PO Q6H PRN PRN Reason: Pain, Severe (Pain Scale 7-10) Oxycodone HCl (Oxycodone Hcl Immed Release 5 Mg Tablet) 5 mg PO Q6H PRN PRN Reason: severe pain Prochlorperazine Edisylate (Prochlorperazine Edisylate 10 Mg/2 Ml Vial) 5 mg IVPUSH Q4H PRN PRN Reason: Nausea and Vomiting Sevelamer Carbonate (Sevelamer Carbonate Powder 800 Mg Powd.Pack) 800 mg PO TID [facility] Last Admin: 04/28/23 08:22 Dose: Not Given Documented By: CHET Non-Admin Reason: Off unit: Dialysis Sodium Bicarbonate (Sodium Bicarbonate 650 Mg Tablet) 650 mg PO TID [facility] Last Admin: 04/28/23 08:22 Dose: Not Given Documented By: CHET Non-Admin Reason: Off unit: Dialysis Sodium Chloride (0.9 % Sodium Chloride Flush 3 Ml Syringe) [facility] Last Admin: 04/28/23 08:11 Dose: 3 ml Documented By: CHET Sodium Chloride (0.9 % Sodium Chloride Flush 3 Ml Syringe) [facility] Last Admin: 04/28/23 08:11 Dose: 3 ml Documented By: CHET Vitamin D (Cholecalciferol (Vitamin D3) 25 Mcg Tablet) 50 mcg PO DAILY [facility] Last Admin: 04/28/23 08:21 Dose: Not Given Documented By: CHET Non-Admin Reason: Off unit: Dialysis Labs 04/28/23 10:29 04/28/23 10:29 Labs: Laboratory Results - last 24 hr 04/27/23 04/27/23 04/27/23 15:21 15:23 20:40 MCV 89.1 MCH 30.6 MCHC 34.3 RDW 14.9 Plt Count 195 D MPV 11.0 Immature Gran % (Auto) 0.4 Neut % (Auto) 79.7 H Lymph % (Auto) 10.3 L [place] % (Auto) 6.2 Eos % (Auto) 2.8 Baso % (Auto) 0.6 Lymph # (Auto) 0.6 L [place] # (Auto) 0.3 Eos # (Auto) 0.2 Baso # (Auto) 0.0 Abs Immat Gran (auto) 0.02 Absolute Neuts (auto) 4.3 Absolute Nucleated RBC 0.000 Nucleated RBC % (auto) 0.0 Anion Gap 17 Estim Creat Clear Calc 9.9 Estimated GFR 6 POC Glucose 116 H Random Glucose 86 Calcium 8.4 Total Bilirubin 0.9 AST 17 ALT 20 Alkaline Phosphatase 179 H Troponin I High Sens 26.8 H Total Protein 7.7 Albumin 3.5 Lipase 43 Influenza Type A (PCR) NEGATIVE Influenza Type B (PCR) NEGATIVE RSV RNA Qual (PCR) NEGATIVE SARS-CoV-2 RNA (RT-PCR) NEGATIVE 04/28/23 10:29 MCV 86.9 MCH 29.8 MCHC 34.3 RDW 14.8 Plt Count 177 MPV 11.2 Immature Gran % (Auto) 0.3 Neut % (Auto) 79.5 H Lymph % (Auto) 10.5 L [place] % (Auto) 6.1 Eos % (Auto) 2.8 Baso % (Auto) 0.8 Lymph # (Auto) 0.4 L [place] # (Auto) 0.2 Eos # (Auto) 0.1 Baso # (Auto) 0.0 Abs Immat Gran (auto) 0.01 Absolute Neuts (auto) 3.1 Absolute Nucleated RBC 0.000 Nucleated RBC % (auto) 0.0 Anion Gap 14 Estim Creat Clear Calc 23.2 Estimated GFR 15 POC Glucose Random Glucose 76 Calcium 8.4 Total Bilirubin 1.1 H AST 19 ALT 19 Alkaline Phosphatase 183 H Troponin I High Sens Total Protein 8.6 H Albumin 3.9 Lipase Influenza Type A (PCR) Influenza Type B (PCR) RSV RNA Qual (PCR) SARS-CoV-2 RNA (RT-PCR) Assessment and Plan (1) End-stage renal disease (ESRD): Status: Acute (2) Hypertension: Status: Acute Plan 32-year-old female with a PMH significant for?ESRD on dialysis Sun/Sun/Sun (none x2 weeks), 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 -HD this a.m..; further HD as per renal -will treat abdominal pain nausea and vomiting as per usual with IV analgesia and Zofran 2. Diabetes type 2 Noncompliance again the issue. Unclear if any medicines at home -lispro correctional scale -diabetic diet -adjust as indicated 3. Hypertension Noncompliance with therapies. Per past admissions BP corrects when home therapies restarted -restart outpatient therapies -adjust as indicated Full code Heparin Patient will require at least 2 midnights to facilitate adequate dialysis given noncompliance. Patient is a high risk for outpatient therapy after just 1 encounter. This can not be achieved a lesser acute setting Quality Stroke Does the patient have a stroke diagnosis?: No VTE Prior VTE?: No VTE Risk Level:: Medical - moderate - high VTE Device Contraindication: Treatment Not Indicated VTE Drug Contraindication: N/A - Med Ordered
[2023-04-28] MEDS: Prochlorperazine Edisylate 10 MG/2 ML VIAL 5 MG IVPUSH (20:26)
[2023-04-28] MEDS: Labetalol HCL 100 MG/20 ML VIAL 10 MG IVPUSH (20:26)
[2023-04-29] VITALS (7 sets, daily range): BP systolic 141–180; BP diastolic 67–106; PULSE 91–97; RESP 16–20; TEMP 36.3–36.7; O2SAT 94–98
[2023-04-29] MEDS: ondansetron HCL 4 MG/2 ML VIAL IVPUSH (05:12)
[2023-04-29] MEDS: Morphine Sulfate 4 MG/ML CARTRIDGE IVPUSH ×5 (05:12→23:01)
--- NOTE | 2023-04-29 08:12 | PM.PNNEP ---
Subjective Subjective Date of Service: 04/29/23 Interval history: No acute issues overnight. Still remains nauseous Physical Exam Vital Signs: Vital Signs: Last Vital Signs Temp 97.4 F 04/29/23 07:41 Pulse 91 04/29/23 07:41 Resp 18 04/29/23 07:41 BP 180/100 H 04/29/23 07:41 Pulse Ox 97 04/29/23 07:41 O2 Del Method Room Air 04/29/23 07:41 BMI result Body Mass Index 26.0 Const: Other: Awake alert uncomfortable appearing Resp: Other: Clear to auscultation bilaterally no rales rhonchi or wheezes Cardio: Other: No S4; positive S1-S2; no S3 murmurs rubs or gallops GI: Other: Soft nontender nondistended normoactive bowel sounds Extrem: Other: No edema bilaterally Objective Data Labs 04/28/23 10:29 04/28/23 10:29 Labs: Laboratory Results - last 24 hr 04/28/23 10:29 WBC 3.9 L RBC 3.29 L Hgb 9.8 L Hct 28.6 L MCV 86.9 MCH 29.8 MCHC 34.3 RDW 14.8 Plt Count 177 MPV 11.2 Immature Gran % (Auto) 0.3 Neut % (Auto) 79.5 H Lymph % (Auto) 10.5 L [place] % (Auto) 6.1 Eos % (Auto) 2.8 Baso % (Auto) 0.8 Lymph # (Auto) 0.4 L [place] # (Auto) 0.2 Eos # (Auto) 0.1 Baso # (Auto) 0.0 Abs Immat Gran (auto) 0.01 Absolute Neuts (auto) 3.1 Absolute Nucleated RBC 0.000 Nucleated RBC % (auto) 0.0 Sodium 134 L Potassium 3.0 L D Chloride 101 Carbon Dioxide 22 Anion Gap 14 BUN 39 H Creatinine 3.49 H Estim Creat Clear Calc 23.2 Estimated GFR 15 Random Glucose 76 Calcium 8.4 Total Bilirubin 1.1 H AST 19 ALT 19 Alkaline Phosphatase 183 H Total Protein 8.6 H Albumin 3.9 Procedures Date of Service Date of Service: 04/29/23 Assessment & Plan Assessment and plan (1) End-stage renal disease (ESRD): Status: Acute (2) Hypertension: Status: Inactive (3) Anemia: Status: Inactive Plan known ESRD usually has HD t-t-s followed by Dr Siddiqi non adherence to medical regimen HFpEF nephrogenic anemia REC HD on Sunday VIPUL 20 K x 1 dose today ( Sunday I d/c'd sodium bicarb Can increase Losartan to 100 mg daily renal diet P binders Continue BP meds Time Spent With Patient Time: Total time managing care of this patient today ____ minutes. Progress Note: Quality Stroke Does the patient have a stroke diagnosis?: No
--- NOTE | 2023-04-29 09:17 | MHC.CM.PN ---
PT REPORTS SHE LIVES WITH HER SISTER WHO IS HER COMPENSATED CAREGIVER PT HAS 34 DAY AND 14 NIGHT [employer] HOURS PER WEEK SHE ALSO ATTENDS OUTPATIENT HD AT [facility] 3X/WK PT HAS A WHEEL CHAIR FOR DME HCP ON FILE PCP: ARMANI ADRIAN VERBALLY DELIVERED, PT IS LEGALLY BLIND. 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
[2023-04-29] MEDS: hydrALAZINE HCl 20 MG/ML VIAL 10 MG IVPUSH (09:35)
[2023-04-29] MEDS: Prochlorperazine Edisylate 10 MG/2 ML VIAL 5 MG IVPUSH ×3 (09:36→18:58)
[2023-04-29 11:02] LABS: Appearance Urine Cloudy; Color Urine Yellow; Glucose Urine UA 100 mg/dL (Negative); Leukocyte Esterase Urine Small (1+) (Negative); Nitrite Urine Negative (Negative); UMIC TRIGGER UACC YES; Urine Blood Trace (Negative); Urine Ketones Trace mg/dL (Negative); Urine Protein >=1000 (4+) mg/dL (Neg-Trace)
[2023-04-29 11:17] LABS: Bacteria Urine 4+ (None Seen); UACC Culture Trigger YES; WBC Urine >50 /HPF (0-5)
--- NOTE | 2023-04-29 12:35 | P.PNIM_ITS ---
Subjective Subjective Date of Service: 04/29/23 Interval History: Remains persistently nauseous with abdominal pain. BP meds changed IV with good response Review of Systems Denies chest pain Denies shortness of breath Admits to nausea vomiting diarrhea Denies fever chills Physical Exam 2 Vital Signs: Vital Signs: Last Vital Signs Temp 97.4 F 04/29/23 07:41 Pulse 91 04/29/23 07:41 Resp 18 04/29/23 07:41 BP 158/85 H 04/29/23 10:59 Pulse Ox 97 04/29/23 07:41 O2 Del Method Room Air 04/29/23 07:41 BMI result Body Mass Index 26.0 Const: Other: Awake alert uncomfortable appearing Resp: Other: Clear to auscultation bilaterally no rales rhonchi or wheezes Cardio: Other: No S4; positive S1-S2; no S3 murmurs rubs or gallops GI: Other: Soft nontender nondistended normoactive bowel sounds Extrem: Other: No edema bilaterally Objective Data Active Medications Acetaminophen (Acetaminophen 325 Mg Tablet) 650 mg PO Q4H PRN PRN Reason: mild pain Al Hydroxide/Mg Hydroxide (Magnesium Hydrox/Alum Hydrox 30 Ml Oral.Susp) 30 ml PO Q4H PRN PRN Reason: Heartburn/Nausea Aspirin (Aspirin Enteric Coated 81 Mg Tablet.) 81 mg PO DAILY [facility] Last Admin: 04/29/23 07:52 Dose: Not Given Documented By: CHET Non-Admin Reason: Patient Refused Carvedilol (Carvedilol 25 Mg Tablet) 25 mg PO BID [facility]; Protocol Last Admin: 04/29/23 07:52 Dose: Not Given Documented By: CHET Non-Admin Reason: Patient Refused Clonidine HCl (Clonidine Hcl 0.1 Mg Tablet) 0.3 mg PO BID [facility]; Protocol Last Admin: 04/29/23 07:53 Dose: Not Given Documented By: CHET Non-Admin Reason: Patient Refused Heparin Sodium (Porcine) (Heparin Sodium,Porcine 5,000 Unit/Ml Vial) 5,000 unit SUBCUT Q8H [facility] Last Admin: 04/29/23 10:54 Dose: Not Given Documented By: CHET Non-Admin Reason: Patient Refused Hydralazine HCl (Hydralazine Hcl 20 Mg/Ml Vial) 10 mg IVPUSH Q6H PRN; Protocol PRN Reason: SBP > 160 Last Admin: 04/29/23 09:35 Dose: 10 mg Documented By: CHET Losartan Potassium (Losartan Potassium 50 Mg Tablet) 50 mg PO DAILY [facility]; Protocol Last Admin: 04/29/23 07:53 Dose: Not Given Documented By: CHET Non-Admin Reason: Patient Refused Morphine Sulfate (Morphine Sulfate 4 Mg/Ml Cartridge) 4 mg IVPUSH Q4H PRN; Protocol PRN Reason: Pain, Severe (Pain Scale 7-10) Last Admin: 04/29/23 09:36 Dose: 4 mg Documented By: CHET Nifedipine (Nifedipine Er 60 Mg Tab.Er.24) 60 mg PO DAILY [facility]; Protocol Last Admin: 04/29/23 07:53 Dose: Not Given Documented By: CHET Non-Admin Reason: Patient Refused Nitroglycerin (Nitroglycerin 2 % Oint 1 Gm Packet) 1 inch TRANSDERMA RQ6H WHILE AWAKE [facility] Ondansetron HCl (Ondansetron Hcl 4 Mg/2 Ml Vial) 4 mg IVPUSH Q4H PRN PRN Reason: Nausea and Vomiting Last Admin: 04/29/23 05:12 Dose: 4 mg Documented By: HARVINDER Oxycodone HCl (Oxycodone Hcl Immed Release 5 Mg Tablet) 10 mg PO Q6H PRN PRN Reason: Pain, Severe (Pain Scale 7-10) Oxycodone HCl (Oxycodone Hcl Immed Release 5 Mg Tablet) 5 mg PO Q6H PRN PRN Reason: severe pain Prochlorperazine Edisylate (Prochlorperazine Edisylate 10 Mg/2 Ml Vial) 5 mg IVPUSH Q4H PRN PRN Reason: Nausea and Vomiting Last Admin: 04/29/23 09:36 Dose: 5 mg Documented By: CHET Sevelamer Carbonate (Sevelamer Carbonate Powder 800 Mg Powd.Pack) 800 mg PO TID [facility] Last Admin: 04/29/23 07:53 Dose: Not Given Documented By: CHET Non-Admin Reason: Patient Refused Sodium Chloride (0.9 % Sodium Chloride Flush 3 Ml Syringe) 3 ml IVFLUSH QSHIFT [facility] Last Admin: 04/29/23 10:21 Dose: Not Given Documented By: CHET Non-Admin Reason: Previously Administered Sodium Chloride (0.9 % Sodium Chloride Flush 3 Ml Syringe) 3 ml IVFLUSH QSHIFT [facility] Last Admin: 04/29/23 10:21 Dose: Not Given Documented By: CHET Non-Admin Reason: Previously Administered Vitamin D (Cholecalciferol (Vitamin D3) 25 Mcg Tablet) 50 mcg PO DAILY [facility] Last Admin: 04/29/23 07:53 Dose: Not Given Documented By: CHET Non-Admin Reason: Patient Refused Labs 04/28/23 10:29 04/28/23 10:29 Labs: Laboratory Results - last 24 hr 04/29/23 10:00 Urine Color Yellow Urine Appearance Cloudy Urine pH 6.0 Ur Specific [place] 1.020 Urine Protein >=1000 (4+) H Urine Glucose (UA) 100 H Urine Ketones Trace Urine Blood Trace H Urine Nitrite Negative Ur Leukocyte Esterase Small (1+) H Urine RBC 3-5 H Urine WBC >50 H Ur Squamous Epith Cells 11-20 Urine Bacteria 4+ Hyaline Casts 3-5 Assessment and Plan (1) End-stage renal disease (ESRD): Status: Acute (2) Type 2 diabetes mellitus with hyperglycemia, with long-term current use of insulin: Status: Acute Plan 32-year-old female with a PMH significant for?ESRD on dialysis Tue/Sun/Sun (none x2 weeks), 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 HD as per renal -will treat abdominal pain nausea and vomiting as per usual with IV analgesia and Zofran 2. Diabetes type 2 Noncompliance again the issue. Unclear if any medicines at home -lispro correctional scale -diabetic diet -adjust as indicated 3. Hypertension Noncompliance with therapies. Per past admissions BP corrects when home therapies restarted -restart outpatient therapies -adjust as indicated Full code Heparin Patient will require at least 2 midnights to facilitate adequate dialysis given noncompliance. Patient is a high risk for outpatient therapy after just 1 encounter. This can not be achieved a lesser acute setting Quality Stroke Does the patient have a stroke diagnosis?: No VTE Prior VTE?: No VTE Risk Level:: Medical - moderate - high VTE Device Contraindication: Treatment Not Indicated VTE Drug Contraindication: N/A - Med Ordered
[2023-04-29] MEDS: 0.9 % Sodium Chloride Flush 3 ML SYRINGE IVFLUSH ×2 (14:29→23:03)
[2023-04-29 17:58] LABS: Glucose, Whole Blood 85 mg/dL (60-115)
[2023-04-29] MEDS: diphenhydrAMINE HCL 50 MG/ML VIAL 25 MG IVPUSH (18:58)
[2023-04-30 03:16] VITALS: BP 177/85; PULSE 103; RESP 18; TEMP 36.1; O2SAT 97
[2023-04-30] MEDS: diphenhydrAMINE HCL 50 MG/ML VIAL 25 MG IVPUSH ×3 (03:27→19:26)
[2023-04-30] MEDS: Morphine Sulfate 4 MG/ML CARTRIDGE IVPUSH ×4 (03:27→19:27)
[2023-04-30] MEDS: Prochlorperazine Edisylate 10 MG/2 ML VIAL 5 MG IVPUSH (03:27)
[2023-04-30] MEDS: hydrALAZINE HCl 20 MG/ML VIAL 10 MG IVPUSH (03:28)
[2023-04-30 03:39] LABS: Glucose, Whole Blood 71 mg/dL (60-115)
[2023-04-30 04:38] LABS: Glucose, Whole Blood 76 mg/dL (60-115)
[2023-04-30 08:00] VITALS: BP 162/82; RESP 20; TEMP 36; O2SAT 96
[2023-04-30] MEDS: 0.9 % Sodium Chloride Flush 3 ML SYRINGE IVFLUSH (08:37)
[2023-04-30 08:51] LABS: Glucose, Whole Blood 117 mg/dL (60-115)
--- NOTE | 2023-04-30 09:36 | PM.PNNEP ---
Subjective Subjective Date of Service: 04/30/23 Interval history: Sleepy Physical Exam Vital Signs: Vital Signs: Last Vital Signs Temp 96.8 F 04/30/23 08:00 Pulse 103 H 04/30/23 03:16 Resp 20 04/30/23 08:00 BP 162/82 H 04/30/23 08:00 Pulse Ox 96 04/30/23 08:00 O2 Del Method Room Air 04/30/23 08:00 BMI result Body Mass Index 26.0 Const: Other: Awake alert uncomfortable appearing Resp: Other: Clear to auscultation bilaterally no rales rhonchi or wheezes Cardio: Other: No S4; positive S1-S2; no S3 murmurs rubs or gallops GI: Other: Soft nontender nondistended normoactive bowel sounds Extrem: Other: No edema bilaterally Objective Data Labs 04/28/23 10:29 04/28/23 10:29 Labs: Laboratory Results - last 24 hr 04/29/23 04/29/23 04/30/23 10:00 17:54 03:34 POC Glucose 85 71 Urine Color Yellow Urine Appearance Cloudy Urine pH 6.0 Ur Specific [place] 1.020 Urine Protein >=1000 (4+) H Urine Glucose (UA) 100 H Urine Ketones Trace Urine Blood Trace H Urine Nitrite Negative Ur Leukocyte Esterase Small (1+) H Urine RBC 3-5 H Urine WBC >50 H Ur Squamous Epith Cells 11-20 Urine Bacteria 4+ Hyaline Casts 3-5 04/30/23 04/30/23 04:34 08:46 POC Glucose 76 117 H Urine Color Urine Appearance Urine pH Ur Specific [place] Urine Protein Urine Glucose (UA) Urine Ketones Urine Blood Urine Nitrite Ur Leukocyte Esterase Urine RBC Urine WBC Ur Squamous Epith Cells Urine Bacteria Hyaline Casts Procedures Date of Service Date of Service: 04/30/23 Assessment & Plan Assessment and plan (1) End-stage renal disease (ESRD): Status: Acute (2) Hypertension: Status: Inactive (3) Anemia: Status: Inactive Plan known ESRD usually has HD t-t-s followed by Dr Siddiqi non adherence to medical regimen HFpEF nephrogenic anemia REC HD on Sunday VIPUL 20 K x 1 dose given ( Sunday) I d/c'd sodium bicarb Can increase Losartan to 100 mg daily renal diet P binders Continue BP meds Replace K to bring it around 4.0 Chck Mag nd replace Time Spent With Patient Time: Total time managing care of this patient today ____ minutes. Progress Note: Quality Stroke Does the patient have a stroke diagnosis?: No
--- NOTE | 2023-04-30 10:33 | HO.WOUND ---
Wound Consult: Initial 32yr old female admitted to [facility] [place] on?04/27/23 - See progress notes and H&P for detailed history. Wound consult placed for Chronic Left and Right Plantar Wound - present on admission. Recent admissions to [facility] [place] - see chart for details. Left Plantar Foot Etiology: Diabetic Foot wound Wound Bed: dry pale pink tissue noted Drainage / Odor: no odor noted - no drainage noted - Alginate stuck to wound bed Edges: ? callused Pao wound: ? No Induration, No Fluctuance, No Erythema, No Warmth - no S/S of active infection Pain: Denies reports neuropathy Goals of Treatment: ? Woun-dres hydrogel for moist wound healing Right Foot Etiology: Diabetic Foot wound Wound Bed: pink red tissue after cleansing Drainage / Odor: no odor noted - dried drainage noted on dressing adherent to wound bed Edges: ? callused Pao wound: ? No Induration, No Fluctuance, No Erythema, No Warmth - no S/S of active infection Pain: Denies reports neuropathy Goals of Treatment: ? Woun-dres hydrogel for moist wound healing Recommendations: 1. Turn and Reposition every 2 hours and as needed for patient comfort. 2. Off Load all bony prominences with use of pillows and heel boots as needed. 3. Provide adequate and supplemental nutrition. 4. Maintain blood glucose levels per Providers orders. 5. Bilateral Feet - Cleanse and irrigate with NS, Pat dry. Apply generous amount of Woun-dres [place] gel to wound bed , cover with dry gauze, ABD pad and gauze wrap. Change every other day. Off Load Pressure.
[2023-04-30 12:03] VITALS: BP 158/94; PULSE 102; RESP 20; O2SAT 98
--- NOTE | 2023-04-30 14:05 | P.PNIM_ITS ---
Subjective Subjective Date of Service: 04/30/23 Interval History: Continues with nausea vomiting and abdominal pain. Essentially unchanged from the last 24 hours Review of Systems Denies chest pain Denies shortness of breath Admits to nausea vomiting diarrhea Denies fever chills Neurologic Neurologic: Denies Sensory deficit (Neuro) Physical Exam 2 Vital Signs: Vital Signs: Last Vital Signs Temp 96.8 F 04/30/23 08:00 Pulse 102 H 04/30/23 12:03 Resp 20 04/30/23 12:03 BP 158/94 H 04/30/23 12:03 Pulse Ox 98 04/30/23 12:03 O2 Del Method Room Air 04/30/23 12:03 BMI result Body Mass Index 26.0 Const: Other: Awake alert uncomfortable appearing Resp: Other: Clear to auscultation bilaterally no rales rhonchi or wheezes Cardio: Other: No S4; positive S1-S2; no S3 murmurs rubs or gallops GI: Other: Soft nontender nondistended normoactive bowel sounds Neuro: Sensory Exam: No Sensory deficit (Neuro) Extrem: Other: No edema bilaterally Objective Data Active Medications Acetaminophen (Acetaminophen 325 Mg Tablet) 650 mg PO Q4H PRN PRN Reason: mild pain Al Hydroxide/Mg Hydroxide (Magnesium Hydrox/Alum Hydrox 30 Ml Oral.Susp) 30 ml PO Q4H PRN PRN Reason: Heartburn/Nausea Aspirin (Aspirin Enteric Coated 81 Mg Tablet.Dr) 81 mg PO DAILY [facility] Last Admin: 04/30/23 08:38 Dose: Not Given Documented By: PER Non-Admin Reason: Patient Refused Carvedilol (Carvedilol 25 Mg Tablet) 25 mg PO BID [facility]; Protocol Last Admin: 04/30/23 08:38 Dose: Not Given Documented By: PER Non-Admin Reason: Patient Refused Clonidine HCl (Clonidine Hcl 0.1 Mg Tablet) 0.3 mg PO BID [facility]; Protocol Last Admin: 04/30/23 08:38 Dose: Not Given Documented By: PER Non-Admin Reason: Patient Refused Diphenhydramine HCl (Diphenhydramine Hcl 50 Mg/Ml Vial) 25 mg IVPUSH Q6H PRN PRN Reason: Itching Last Admin: 04/30/23 10:46 Dose: 25 mg Documented By: PER Heparin Sodium (Porcine) (Heparin Sodium,Porcine 5,000 Unit/Ml Vial) 5,000 unit SUBCUT Q8H [facility] Last Admin: 04/30/23 10:51 Dose: Not Given Documented By: PER Non-Admin Reason: Patient Refused Hydralazine HCl (Hydralazine Hcl 20 Mg/Ml Vial) 10 mg IVPUSH Q6H PRN; Protocol PRN Reason: SBP > 160 Last Admin: 04/30/23 03:28 Dose: 10 mg Documented By: KADIE Losartan Potassium (Losartan Potassium 50 Mg Tablet) 50 mg PO DAILY [facility]; Protocol Last Admin: 04/30/23 08:38 Dose: Not Given Documented By: PER Non-Admin Reason: Patient Refused Morphine Sulfate (Morphine Sulfate 4 Mg/Ml Cartridge) 4 mg IVPUSH Q4H PRN; Protocol PRN Reason: Pain, Severe (Pain Scale 7-10) Last Admin: 04/30/23 08:32 Dose: 4 mg Documented By: PER Nifedipine (Nifedipine Er 60 Mg Tab.Er.24) 60 mg PO DAILY [facility]; Protocol Last Admin: 04/30/23 08:38 Dose: Not Given Documented By: PER Non-Admin Reason: Patient Refused Nitroglycerin (Nitroglycerin 2 % Oint 1 Gm Packet) 1 inch TRANSDERMA RQ6H WHILE AWAKE [facility] Last Admin: 04/30/23 13:43 Dose: Not Given Documented By: PER Non-Admin Reason: Patient Refused Ondansetron HCl (Ondansetron Hcl 4 Mg/2 Ml Vial) 4 mg IVPUSH Q4H PRN PRN Reason: Nausea and Vomiting Last Admin: 04/29/23 05:12 Dose: 4 mg Documented By: HARVINDER Oxycodone HCl (Oxycodone Hcl Immed Release 5 Mg Tablet) 10 mg PO Q6H PRN PRN Reason: Pain, Severe (Pain Scale 7-10) Oxycodone HCl (Oxycodone Hcl Immed Release 5 Mg Tablet) 5 mg PO Q6H PRN PRN Reason: severe pain Prochlorperazine Edisylate (Prochlorperazine Edisylate 10 Mg/2 Ml Vial) 5 mg IVPUSH Q4H PRN PRN Reason: Nausea and Vomiting Last Admin: 04/30/23 03:27 Dose: 5 mg Documented By: KADIE Sevelamer Carbonate (Sevelamer Carbonate Powder 800 Mg Powd.Pack) 800 mg PO TID [facility] Last Admin: 04/30/23 08:38 Dose: Not Given Documented By: PER Non-Admin Reason: Patient Refused Sodium Chloride (0.9 % Sodium Chloride Flush 3 Ml Syringe) 3 ml IVFLUSH QSHIFT [facility] Last Admin: 04/30/23 08:37 Dose: 3 ml Documented By: PER Sodium Chloride (0.9 % Sodium Chloride Flush 3 Ml Syringe) 3 ml IVFLUSH QSHIFT [facility] Last Admin: 04/30/23 08:37 Dose: Not Given Documented By: PER Non-Admin Reason: Previously Administered Vitamin D (Cholecalciferol (Vitamin D3) 25 Mcg Tablet) 50 mcg PO DAILY [facility] Last Admin: 04/30/23 08:38 Dose: Not Given Documented By: PER Non-Admin Reason: Patient Refused Labs 04/28/23 10:29 04/28/23 10:29 Labs: Laboratory Results - last 24 hr 04/29/23 04/30/23 04/30/23 17:54 03:34 04:34 POC Glucose 85 71 76 04/30/23 08:46 POC Glucose 117 H Microbiology Microbiology Results: Microbiology 04/29/23 Unknown Urine Culture - Preliminary Urine clean catch - Urine fuller top Gram positive cocci Assessment and Plan (1) End-stage renal disease (ESRD): Status: Acute (2) Type 2 diabetes mellitus with hyperglycemia, with long-term current use of insulin: Status: Acute Plan 32-year-old female with a PMH significant for?ESRD on dialysis Tu/Etelvina/Sun (none x2 weeks), 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 HD as per renal -will treat abdominal pain nausea and vomiting as per usual with IV analgesia and Zofran -replete potassium as per Nephrology 2. Diabetes type 2 Noncompliance again the issue. Unclear if any medicines at home -lispro correctional scale -diabetic diet -adjust as indicated 3. Hypertension Noncompliance with therapies. Per past admissions BP corrects when home therapies restarted -restart outpatient therapies -adjust as indicated Full code Heparin Patient will require at least 2 midnights to facilitate adequate dialysis given noncompliance. Patient is a high risk for outpatient therapy after just 1 encounter. This can not be achieved a lesser acute setting Quality Stroke Does the patient have a stroke diagnosis?: No VTE Prior VTE?: No VTE Risk Level:: Medical - moderate - high VTE Device Contraindication: Treatment Not Indicated VTE Drug Contraindication: N/A - Med Ordered
[2023-04-30 16:00] VITALS: BP 148/78; PULSE 95; RESP 20; TEMP 36.1; O2SAT 97
--- NOTE | 2023-04-30 16:09 | MHC.CM.PN ---
EMR reviewed and per MD rounds, pt is not medically cleared for D/C due to ongoing management of ESRD. CM will continue to follow.
[2023-04-30] MEDS: KCl 40 mEq in 0.9 % Sodium Chl 40 MEQ/1,000 ML IV.SOLN 100 MEQ IVCONT (16:14)
[2023-04-30 19:28] VITALS: BP 182/62; PULSE 106; RESP 18; TEMP 36.8; O2SAT 97
[2023-05-01] VITALS (7 sets, daily range): BP systolic 126–177; BP diastolic 65–98; PULSE 94–107; RESP 18–20; TEMP 36.1–36.7; O2SAT 96–100
[2023-05-01] MEDS: KCl 40 mEq in 0.9 % Sodium Chl 40 MEQ/1,000 ML IV.SOLN 100 MEQ IVCONT ×3 (02:21→21:16)
[2023-05-01] MEDS: Morphine Sulfate 4 MG/ML CARTRIDGE IVPUSH ×4 (02:23→21:05)
[2023-05-01] MEDS: diphenhydrAMINE HCL 50 MG/ML VIAL 25 MG IVPUSH ×4 (02:24→21:06)
[2023-05-01] MEDS: 0.9 % Sodium Chloride Flush 3 ML SYRINGE IVFLUSH ×2 (09:05→21:05)
[2023-05-01] MEDS: ondansetron HCL 4 MG/2 ML VIAL IVPUSH (09:08)
[2023-05-01] MEDS: Sevelamer Carbonate Powder 800 MG POWD.PACK PO (14:05)
[2023-05-01] MEDS: Nitroglycerin 2 % Oint 1 GM Packet 1 INCH TRANSDERMA (14:05)
[2023-05-01] MEDS: hydrALAZINE HCl 20 MG/ML VIAL 10 MG IVPUSH (15:44)
--- NOTE | 2023-05-01 18:14 | P.PNIM_ITS ---
Subjective Subjective Date of Service: 05/02/23 Interval History: Continues with nausea vomiting and abdominal pain. Review of Systems Denies chest painor shortness of breath or nausea vomiting diarrhea Physical Exam 2 Vital Signs: Vital Signs: Last Vital Signs Temp 98.0 F 05/01/23 15:38 Pulse 100 05/01/23 15:38 Resp 18 05/01/23 15:38 BP 142/90 H 05/01/23 17:08 Pulse Ox 99 05/01/23 15:38 O2 Del Method Room Air 05/01/23 15:38 BMI result Body Mass Index 26.0 Appearance: Alert.? Oriented X3.? cvs: rrr, [id number] . res: clear to auscultation ,no rhonchii or wheezing abd: no rebound or guarding ,nt, bs present. ext pulses present , no edema. neuro: axo3 , nonfocal. Objective Data Active Medications Acetaminophen (Acetaminophen 325 Mg Tablet) 650 mg PO Q4H PRN PRN Reason: mild pain Al Hydroxide/Mg Hydroxide (Magnesium Hydrox/Alum Hydrox 30 Ml Oral.Susp) 30 ml PO Q4H PRN PRN Reason: Heartburn/Nausea Aspirin (Aspirin Enteric Coated 81 Mg Tablet.Dr) 81 mg PO DAILY [facility] Last Admin: 05/01/23 12:29 Dose: Not Given Documented By: LARRY Non-Admin Reason: Patient Refused Carvedilol (Carvedilol 25 Mg Tablet) 25 mg PO BID [facility]; Protocol Last Admin: 05/01/23 12:29 Dose: Not Given Documented By: LARRY Non-Admin Reason: Patient Refused Clonidine HCl (Clonidine Hcl 0.1 Mg Tablet) 0.3 mg PO BID [facility]; Protocol Last Admin: 05/01/23 12:29 Dose: Not Given Documented By: LARRY Non-Admin Reason: Patient Refused Diphenhydramine HCl (Diphenhydramine Hcl 50 Mg/Ml Vial) 25 mg IVPUSH Q6H PRN PRN Reason: Itching Last Admin: 05/01/23 15:29 Dose: 25 mg Documented By: LARRY Heparin Sodium (Porcine) (Heparin Sodium,Porcine 5,000 Unit/Ml Vial) 5,000 unit SUBCUT Q8H [facility] Last Admin: 05/01/23 12:30 Dose: Not Given Documented By: LARRY Non-Admin Reason: Patient Refused Hydralazine HCl (Hydralazine Hcl 20 Mg/Ml Vial) 10 mg IVPUSH Q6H PRN; Protocol PRN Reason: SBP > 160 Last Admin: 05/01/23 15:44 Dose: 10 mg Documented By: LARRY Potassium Chloride/Sodium Chloride (Kcl 40 Meq In 0.9 % Sodium Chl) 40 meq in 1,000 mls @ 100 mls/hr IVCONT .Q10H [facility] Last Admin: 05/01/23 12:32 Dose: 100 mls/hr Documented By: LARRY Losartan Potassium (Losartan Potassium 50 Mg Tablet) 50 mg PO BID [facility]; Protocol Morphine Sulfate (Morphine Sulfate 4 Mg/Ml Cartridge) 4 mg IVPUSH Q4H PRN; Protocol PRN Reason: Pain, Severe (Pain Scale 7-10) Last Admin: 05/01/23 15:27 Dose: 4 mg Documented By: LARRY Nifedipine (Nifedipine Er 60 Mg Tab.Er.24) 60 mg PO DAILY [facility]; Protocol Last Admin: 05/01/23 12:29 Dose: Not Given Documented By: LARRY Non-Admin Reason: Patient Refused Nitroglycerin (Nitroglycerin 2 % Oint 1 Gm Packet) 1 inch TRANSDERMA RQ6H WHILE AWAKE [facility] Last Admin: 05/01/23 14:05 Dose: 1 inch Documented By: LARRY Ondansetron HCl (Ondansetron Hcl 4 Mg/2 Ml Vial) 4 mg IVPUSH Q4H PRN PRN Reason: Nausea and Vomiting Last Admin: 05/01/23 09:08 Dose: 4 mg Documented By: LARRY Oxycodone HCl (Oxycodone Hcl Immed Release 5 Mg Tablet) 10 mg PO Q6H PRN PRN Reason: Pain, Severe (Pain Scale 7-10) Oxycodone HCl (Oxycodone Hcl Immed Release 5 Mg Tablet) 5 mg PO Q6H PRN PRN Reason: severe pain Prochlorperazine Edisylate (Prochlorperazine Edisylate 10 Mg/2 Ml Vial) 5 mg IVPUSH Q4H PRN PRN Reason: Nausea and Vomiting Last Admin: 04/30/23 03:27 Dose: 5 mg Documented By: HO.BELANGB Sevelamer Carbonate (Sevelamer Carbonate Powder 800 Mg Powd.Pack) 800 mg PO TID [facility] Last Admin: 05/01/23 14:05 Dose: 800 mg Documented By: LARRY Sodium Chloride (0.9 % Sodium Chloride Flush 3 Ml Syringe) 3 ml IVFLUSH QSWYFT [facility] Last Admin: 05/01/23 14:15 Dose: Not Given Documented By: LARRY Non-Admin Reason: IV Running Sodium Chloride (0.9 % Sodium Chloride Flush 3 Ml Syringe) [facility] Last Admin: 05/01/23 14:15 Dose: Not Given Documented By: LARRY Non-Admin Reason: IV Running Vitamin D (Cholecalciferol (Vitamin D3) 25 Mcg Tablet) 50 mcg PO DAILY [facility] Last Admin: 05/01/23 12:29 Dose: Not Given Documented By: LARRY Non-Admin Reason: Patient Refused Labs 04/28/23 10:29 04/28/23 10:29 Microbiology Microbiology Results: Microbiology 04/29/23 Unknown Urine Culture - Final Urine clean catch - Urine fuller top Enterococcus faecalis Assessment and Plan (1) Hypertension: Status: Acute (2) End-stage renal disease (ESRD): Status: Acute Plan 32-year-old female with a PMH significant for?ESRD on dialysis Tue/Etelvina/Sun (none x2 weeks), 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 HD as per renal -will treat abdominal pain nausea and vomiting as per usual with IV analgesia and Zofran -replete potassium as per Nephrology Diabetes type 2 Noncompliance again the issue. Unclear if any medicines at home -lispro correctional scale -diabetic diet -adjust as indicated Hypertension Noncompliance with therapies. Per past admissions BP corrects when home therapies restarted -restart outpatient therapies -adjust as indicated Full code Heparin ongoing hospitlisation need to facilitate adequate dialysis given noncompliance. Patient is a high risk for outpatient therapy after just 1 encounter. This can not be achieved a lesser acute setting Quality Stroke Does the patient have a stroke diagnosis?: No VTE Prior VTE?: No VTE Risk Level:: Medical - moderate - high VTE Device Contraindication: Treatment Not Indicated VTE Drug Contraindication: N/A - Med Ordered
[2023-05-01] MEDS: cloNIDine HCL 0.1 MG TABLET 0.3 MG PO (21:06)
[2023-05-01] MEDS: carvediloL 25 MG TABLET PO (21:07)
[2023-05-01] MEDS: oxyCODONE HCl Immed Release 5 MG TABLET PO (21:07)
[2023-05-02 03:08] VITALS: BP 183/95; PULSE 98; RESP 18; TEMP 36.4; O2SAT 99
[2023-05-02] MEDS: hydrALAZINE HCl 20 MG/ML VIAL 10 MG IVPUSH (03:23)
[2023-05-02 04:42] VITALS: BP 131/75
[2023-05-02 04:53] VITALS: BP 131/75
[2023-05-02] MEDS: KCl 40 mEq in 0.9 % Sodium Chl 40 MEQ/1,000 ML IV.SOLN 100 MEQ IVCONT (05:56)
[2023-05-02] MEDS: Morphine Sulfate 4 MG/ML CARTRIDGE IVPUSH (09:31)
[2023-05-02] MEDS: diphenhydrAMINE HCL 50 MG/ML VIAL 25 MG IVPUSH (09:31)
[2023-05-02] MEDS: Sevelamer Carbonate Powder 800 MG POWD.PACK PO (09:32)
[2023-05-02] MEDS: Cholecalciferol (Vitamin D3) 25 MCG TABLET 50 MCG PO (09:32)
[2023-05-02] MEDS: NIFEdipine ER 60 MG TAB.ER.24 PO (09:32)
[2023-05-02] MEDS: cloNIDine HCL 0.1 MG TABLET 0.3 MG PO (09:32)
[2023-05-02] MEDS: Nitroglycerin 2 % Oint 1 GM Packet 1 INCH TRANSDERMA (09:32)
[2023-05-02] MEDS: Aspirin Enteric Coated 81 MG TABLET.DR PO (09:32)
[2023-05-02] MEDS: carvediloL 25 MG TABLET PO (09:32)
[2023-05-02] MEDS: Losartan Potassium 50 MG TABLET PO (09:32)
[2023-05-02] MEDS: 0.9 % Sodium Chloride Flush 3 ML SYRINGE IVFLUSH (09:33)
--- NOTE | 2023-05-02 10:46 | MHC.CM.PN ---
Addendum entered by Vane Houston 05/02/23 12:31: Second call placed to pts sister Joys, went to voicemsil. This CM met with pt to discuss D/C plan and ride, she states her sister is usually asleep till 1pm, she will call her after that to arrange her ride. Second IMM given to pt 05/01. Original Note: Pt is being medically cleared for D/C home with resumption of [employer] services. This CM placed call to pts sister/[employer] Josy to confirm that she can transport her home today, voicemail left, awaiting return call.
--- NOTE | 2023-05-02 11:04 | P.DS_ITS ---
DS: Providers Provider Date of Service: 05/02/23 Date of admission: 04/27/23 18:38 Date of discharge: 05/02/23 Primary care physician: Abdon Beard MD Consults: 04/27/23 18:47 Consult to Nephrology Routine Consulting Provider: Sylvain Ruiz Reason for consultation: ESRD Has provider been notified: Yes 04/27/23 23:20 Consult to Wound Care Routine Reason for consultation: diabetic ulcers Attending physician on discharge: Gildardo Bess Discharging clinician: Gildardo Bess DS: Diagnosis Discharge Diagnosis (1) End-stage renal disease (ESRD): Status: Acute (2) Type 2 diabetes mellitus with hyperglycemia, with long-term current use of insulin: Status: Acute DS: Summary Hospital Course Hospital Course: 32-year-old female well known to this hospital service presents with abdominal pain and nausea having been noncompliant with her weekly dialysis. She states family member had COVID which preempted her transport to dialysis. By her recollection and has been 2 weeks since her last dialysis. [facility] Hospital course: Patient comes with frequent hospitalization miss dialysis and uncontrolled hypertension possible secondary to noncompliance: Patient received dialysis, and blood pressure is also improved with her home medications, currently asympt omatic.htn : continue procardia ,clonidine ,coreg,losartan. blood pressure stable around 130's today. Patient was strongly advised for blood pressure medication and hemodialysis compliance. Patient intractable nausea and vomiting with history of diabetic gastroparesis,possible uremia also sec to esrd-abd xray seems fine:treated with antiemetics, narcotic IV pain medication, received HD-seems improved . plan: Patient will be going home patient was strongly advised to medication compliance as well as hemodialysis noncompliance. Patient is to follow-up with PCP and Nephrology outpatient. Bilateral Feet - Cleanse and irrigate with NS, Pat dry. Apply generous amount of [place] gel to wound bed , cover with dry gauze, ABD pad and gauze wrap. Change every other day. Off Load Pressure. follow up with wound care. Above management discussed with the patient in detail length she understand agreement with the above plan, time spent 50 minute. Time Attestation Discharge Coordination Time: discharge time of ____ minutes Quality: Safe Use of Opioids Does Pt have an Active Cancer Diagnosis on the Problem List?: No Quality: Stroke Does the patient have a stroke diagnosis?: No Physical Exam Vital Signs: Vital Signs: Last Vital Signs Temp 97.6 F 05/02/23 03:08 Pulse 98 05/02/23 03:08 Resp 18 05/02/23 03:08 BP 131/75 05/02/23 04:53 Pulse Ox 99 05/02/23 03:08 O2 Del Method Room Air 05/02/23 03:08 BMI result Body Mass Index 26.0 Appearance: Alert.? Oriented X3.? not in distress.? cvs: [id number], [id number] res: clear to auscultation ,no rhonchii or wheezing abd: no rebound or guarding ,nt, bs present. ext pulses present .no edmema left foot ulcer wound seems -dry pale pink tissue noted right foot wound-pink red tissue after cleansing no erythema or discharge . neuro: axo3 , nonfocal. DS: Data Data Completed and Pending Completed studies during hospitalization [Text1]: Procedures Detachment at Right Foot, Partial 1st Ray, Open Approach (03/01/20) Detachment at Right Foot, Partial 2nd Ray, Open Approach (03/01/20) Detachment at Right Foot, Partial 3rd Ray, Open Approach (03/01/20) Detachment at Right Foot, Partial 4th Ray, Open Approach (03/01/20) Detachment at Right Foot, Partial 5th Ray, Open Approach (03/01/20) Drainage of Right Pleural Cavity, Percutaneous Approach (01/14/21) Excision of Left Foot Skin, External Approach (03/10/23) Excision of Stomach, Pylorus, Via Natural or Artificial Opening Endoscopic, Diagnostic (08/27/22) Fluoroscopy of Superior Vena Cava, Guidance (08/14/22) Insertion of Infusion Device into Right Atrium, Percutaneous Approach (08/14/22) Insertion of Infusion Device into Superior Vena Cava, Percutaneous Approach (01/14/21) Insertion of Tunneled Vascular Access Device into Chest Subcutaneous Tissue and Fascia, Percutaneous Approach (08/14/22) Performance of Urinary Filtration, Intermittent, Less than 6 Hours Per Day (03/24/23) Removal of Infusion Device from Great Vessel, External Approach (01/14/21) Transfusion of Nonautologous Red Blood Cells into Peripheral Vein, Percutaneous Approach (04/22/22) Discharge Plan Discharge Anticipated Discharge Date/Time: 05/02/23 10:49 Patient Disposition: Home, Self-Care Discharge Diagnosis: esrd on HD Referrals: Abdon Beard MD [Primary Care Provider] - 1 Week Discharge Medications: Continued isosorbide mononitrate 30 mg tablet extended release 24 hr 30 mg PO DAILY nifedipine 60 mg tablet extended release 24hr 60 mg PO DAILY lidocaine 5 % adhesive patch,medicated 1 patch topical DAILY oxycodone 5 mg tablet 5 mg PO Q6H PRN (Reason: severe pain) (DME) off loading boot Kit See Rx Instructions .Route Qty: 1 0RF Rx Instructions: As directed aspirin 81 mg Tablet,Delayed Release (Dr/Ec) 81 mg PO DAILY Qty: 30 0RF cholecalciferol (vitamin D3) 50 mcg (2,000 unit) capsule 50 mcg PO DAILY acetaminophen 325 mg tablet 650 mg PO Q4H PRN (Reason: mild pain) sodium bicarbonate 650 mg Tablet 650 mg PO TID Qty: 90 0RF carvedilol 25 mg tablet 25 mg PO BID Qty: 60 0RF Rx Instructions: must administer with a meal/food losartan 50 mg tablet 50 mg PO DAILY Qty: 30 0RF clonidine HCl 0.1 mg Tablet 0.3 mg PO BID Qty: 60 0RF Protocol: Hold for SBP< HOLD for SBP < : 90 sevelamer carbonate 0.8 gram powder in packet 0.8 g PO TID hydralazine 100 mg tablet 50 mg PO TID Qty: 90 0RF Discharge Orders: Discharge Order (Routine); Ordered 05/02/23 Ordered By: Gildardo Bess Diet: Advance to usual diet Activity on Discharge: As tolerated Stand Alone Forms: Patient Portal Discharge page Care Plan Goals: Patient comes with frequent hospitalization miss dialysis and uncontrolled hy pertension possible secondary to noncompliance: Patient received dialysis, and blood pressure is also improved with her home medications, currently asymptomatic. Patient will be going home patient was strongly advised to medication compliance as well as hemodialysis noncompliance. Patient is to follow-up with PCP and Nephrology outpatient. Health Concerns: As above. Plan of Treatment: As above. Assessment: As above.
--- NOTE | 2023-05-09 11:21 | P.CDIM_ITS ---
PROVIDER RESPONSE TEXT: To clarify, the appropriate diagnosis supported by the clinical indicators: Diabetes mellitus Type 2 with neuropathy: peripherral QUERY TEXT: PHYSICIAN'S DOCUMENTATION REQUEST Date of Query: 04/30/2023 10:03 AM EST Patient Name: Shereen Taylor Admit Date: 04/27/2023 Dear Steve Shepherd, A review of the medical record indicates additional documentation may be needed. Please review below and update the documentation accordingly. Clinical Indicators: Progress notes - Non-insulin dependent Type 2 Diabetes with neuropathy. Noncompliant with medications or dialysis. Please clarify the following regarding the specifics of the noted neuropathy: Diabetes mellitus Type 2 with neuropathy peripheral, polyneuropathy, mononeuropathy, autonomic etc. Other Other (explain) Clinically unable to determine (explain) Thank you, Betsey Metz, CCS, CDIS Use of terms such as suspected, likely, concern for, or probable (associated with a specific diagnosi s that is being evaluated, monitored, or treated as if it exists) are acceptable and can be coded in the inpatient se tting, when documented at the time of discharge. Please use your independent medical judgment in providing your response. THIS QUERY IS PART OF THE PERMANENT MEDICAL RECORD
== END 2023-05-02 13:45 | disposition home or self-care (01) | DRG 291 ==
LOC: HO.ED 17:23 → HO.EDOVER 19:01 → HO.S3 20:30 → HO.IMC 22:02
PROVIDERS: Physician Assistant; Admitting Provider Hospitalist; Emergency Provider Emergency Medicine; PCP Internal Medicine; Visit Provider Internal Medicine
DX: I13.2 Hypertensive heart and chronic kidney disease with heart failure and with stage 5 chronic kidney disease, or end stage renal disease (principal); N18.6 End stage renal disease; I50.32 Chronic diastolic (congestive) heart failure; E11.22 Type 2 diabetes mellitus with diabetic chronic kidney disease; H54.8 Legal blindness, as defined in USA; E11.42 Type 2 diabetes mellitus with diabetic polyneuropathy; E11.65 Type 2 diabetes mellitus with hyperglycemia; D63.1 Anemia in chronic kidney disease; Z99.2 Dependence on renal dialysis; Z91.158 Patient's noncompliance with renal dialysis for other reason; Z79.82 Long term (current) use of aspirin; Z79.899 Other long term (current) drug therapy; Z11.52 Encounter for screening for COVID-19; Z20.828 Contact with and (suspected) exposure to other viral communicable diseases
CPT/HCPCS: 0241U; 36415; 71045; 74019; 80053; 81001; 82947; 83690; 84484; 85025; 87086; 87088; 87186; 90999; 93005; 99222; 99285; J0360; J0737; J0885; J1200; J1920; J2270; J2405; J3480

== ENCOUNTER → 2023-04-27 13:54 | Outpatient (BNV) | payer OTHER, SELFPAY | PROVIDERS: Emergency Provider Emergency Medicine; PCP Internal Medicine; Visit Provider Internal Medicine | DX: R00.0 Tachycardia, unspecified (principal) | CPT/HCPCS: 93010 ==

== ENCOUNTER → 2023-04-27 18:38 | Outpatient (BNV) | payer OTHER, SELFPAY | PROVIDERS: Admitting Provider Hospitalist; Emergency Provider Emergency Medicine; PCP Internal Medicine; Visit Provider Hospitalist | DX: I12.0 Hypertensive chronic kidney disease with stage 5 chronic kidney disease or end stage renal disease (principal); N18.6 End stage renal disease; Z99.2 Dependence on renal dialysis; E11.65 Type 2 diabetes mellitus with hyperglycemia; Z79.4 Long term (current) use of insulin | CPT/HCPCS: 99223; 99231; 99233; 99239 ==

== ENCOUNTER 2023-05-19 13:33 | Inpatient (IN) | payer OTHER, SELFPAY ==
--- NOTE | ~2023-05-19 | XR_ITS ---
EXAMINATION: XR CHEST CLINICAL INFORMATION: Shortness of breath COMPARISON: 04/27/2023 TECHNIQUE: Frontal view of the chest was obtained. FINDINGS: Right IJ central line tip lies in the region of the upper right atrium. Lungs appear mildly hypoinflated. No focal consolidation is seen. There is suspected minimal bibasilar atelectasis. No evidence of pneumothorax, significant pleural effusion, or overt pulmonary edema. Cardiac silhouette remains mildly enlarged. No acute osseous findings are seen. XR/XR chest 1V IMPRESSION: Low lung volumes with suspected minimal bibasilar atelectasis. Cardiac silhouette remains mildly enlarged.
--- NOTE | ~2023-05-19 | XR_ITS ---
Examination: Right foot and left foot. CLINICAL INDICATION: Foot pain. Concern for osteomyelitis. COMPARISON: Right foot 04/12/2023. TECHNIQUE: 3 views right foot and 3 views left foot. FINDINGS: Left foot: There is amputation of first digit beyond the proximal metatarsal. The stump appears unremarkable. No bony erosive changes or periosteal thickening seen. There is mild periosteal thickening along the third metatarsal likely old healed stress fracture. There is hypertrophic bony changes along the fourth metatarsal likely old healed fracture. There is hypertrophic bony changes along the distal fourth metatarsal. The PIP and DIP joints of second third and fourth digit is normal. There is amputation of fifth digit beyond the PIP joint. The ankle mortise and subtalar joints are normal. There is a soft tissue gas along the plantar foot likely ulceration or laceration. It is distant to the nearest metatarsal. There is no suspicion for osteomyelitis. Right foot: There is amputation of right foot beyond the proximal first through fifth metatarsals. There is soft tissue gas along medial stump but no bony erosive changes seen involving any of the amputation sites. No periosteal thickening or elevation. No suspicion for osteomyelitis. Soft tissue gas along the medial stump is new since the last exam 04/12/2023 XR/XR foot LT min 3V IMPRESSION: 1. Amputation of left first digit and left fifth digit beyond the PIP joint. No bony erosive changes or periosteal thickening seen to suggest osteomyelitis. There is soft tissue gas along the mid plantar aspect of the left foot likely ulceration or laceration. 2. There is amputation of right foot beyond the proximal first through fifth metatarsals. 3. There is soft tissue gas along the medial stump but no bony erosive changes seen. The soft tissue gas right foot is new since the previous exam 04/12/2023 right foot exam
--- NOTE | ~2023-05-19 | MR_ITS ---
EXAMINATION: MR FOOT WITHOUT AND WITH CONTRAST, RIGHT CLINICAL INFORMATION: Pain. Osteomyelitis. COMPARISON: Most recent right foot radiographs dated 05/19/2023. Right foot MRI dated 10/22/2018. TECHNIQUE: MRI of the right foot was performed before and after the intravenous administration of 6 mL Gadavist on a high-field scanner. FINDINGS: Redemonstration of transmetatarsal amputations. Evaluation of the amputation sites/distal metatarsal significantly limited due to artifact at the periphery of the field of view. Mildly increased T2 signal within the persistent third, fourth, and fifth metatarsals with normal T1 signal. No significant marrow enhancement seen in this area. Findings may be artifactual or could indicate marrow edema. No additional marrow edema or evidence of acute osseous injury. No concerning lytic or blastic osseous lesion. Grossly intact articular cartilage. Edema and atrophy within the intrinsic musculature. The visualized flexor and extensor tendons are intact. No abnormal soft tissue mass or fluid collection. No abscess formation. Mild circumferential subcutaneous edema at the ankle. MR/MR foot RT wo/w con IMPRESSION: 1. Transmetatarsal amputations are redemonstrated. Mildly increased T2 signal within the persistent third, fourth, and fifth metatarsals with normal T1 signal. Findings may be artifactual or could indicate mild marrow edema. No additional marrow edema or evidence of acute osseous injury. Evaluation of the metatarsal amputation site significantly limited as this is at the periphery of the field of view and there is significant artifact. If there is persistent clinical concern for cellulitis/osteomyelitis, repeat imaging is recommended to help further evaluate. 2. No abnormal soft tissue mass or fluid collection. No abscess formation. 3. Mild circumferential subcutaneous edema at the ankle.
--- NOTE | ~2023-05-19 | MR_ITS ---
EXAMINATION: MRI OF THE RIGHT FOOT WITHOUT CONTRAST MRI OF THE LEFT FOOT WITH AND WITHOUT CONTRAST CLINICAL INFORMATION: Osteomyelitis. COMPARISON: 05/22/2023. Radiograph dated 05/19/2023. TECHNIQUE: Multiplanar MR imaging was obtained through both feet on a 1.5 Tena magnet before and after intravenous administration of 8.5 mL Gadavist. FINDINGS: Left Foot: There is an ulcer at the plantar margin of the midfoot measuring 1.3 x 1.3 cm in area with surrounding skin thickening, hyperenhancement, and edema signal. No appreciable underlying fluid collections to indicate an abscess. There is mild generalized subcutaneous edema throughout the forefoot and midfoot, most pronounced dorsally, associated with soft tissue swelling. There is fatty atrophy of the intrinsic foot musculature with associated increased T2 signal intensity, consistent with chronic denervation changes of diabetic neuropathy. Extensive changes of Charcot arthropathy are present in the midfoot with marked osseous destruction and displacement centered at the navicular, cuneiforms, and metatarsal bases. Of note, there are a few patchy foci of marrow edema signal within the region of Charcot arthropathy without findings to indicate superimposed osteomyelitis. The talar head is impacted into the midfoot with dorsal medial displacement of the remaining portion of the navicular as well as multiple cuboid bone fragments. Talocrural and subtalar joints appear relatively well preserved. The great toe is surgically absent at the level of the proximal first metatarsal shaft. The fifth toe is also absent at the level of the metatarsal head. There is abnormal morphology of the distal margin of the fourth metatarsal with a small osseous fragment that may protrude through the skin surface. No appreciable findings of osteolysis in this region. Marked arthrosis is present at the second MTP joint. Right Foot: Again seen are chronic changes of prior transmetatarsal amputation. No appreciable findings of osteomyelitis. There is very subtle focal edema signal at the plantar margin of the remaining portion of the first metatarsal base which is not directly contiguous with an open wound or abscess, making osteomyelitis unlikely. There is overlying skin thickening at the stump with a possible small focal wound. No underlying abscess or significant abnormal edema signal. Areas of diminished T1 signal intensity are present within the plantar aspect of the midfoot which may correspond to scar tissue or adventitious bursae. No fluid collections. Fatty atrophy and increased T2 signal within the intrinsic foot musculature is consistent with chronic denervation change from diabetic neuropathy. The joints of the hindfoot and midfoot are normal in appearance without significant arthritis. No evidence of septic arthritis. No effusions or synovitis. MR/MR foot RT wo/w con IMPRESSION: LEFT FOOT: 1. Ulcer at the plantar margin of the left midfoot without evidence of underlying abscess or osteomyelitis. 2. Charcot arthropathy in the left midfoot. RIGHT FOOT: No evidence of osteomyelitis in the right foot.
[2023-05-19 13:44] VITALS: BP 168/100; BP 189/108; PULSE 100; PULSE 103; RESP 20; TEMP 36.6; O2SAT 100; BMI 29.8
--- NOTE | 2023-05-19 14:13 | ED_ITS ---
HPI - General Adult General Chief complaint: General Medical Stated complaint: Bilateral chronic foot wounds Time Seen by Provider: 05/19/23 14:13 Source: patient and EMS Mode of arrival: EMS Limitations: no limitations History of Present Illness HPI narrative: Patient is a 32 year old assigned female at with a history of CKD requiring dialysis, HTN, and heart failure chronically on 4 liters of oxygen via nasal canula, presenting to the emergency department today with nausea, vomiting, missed dialysis, and bilateral worsening foot pain. Patient states that she last dialyzed on 05/15/2023 and she missed her dialysis 2 days ago. Patient states that both of her feet are getting worse with a foul smelling odor coming from them and she is supposed to get an MRI next week for them to see if it is in the bone. Patient denies any dizziness, lightheadedness, fever, chills, blurry vision, double vision, loss of vision, back pain, night sweats, blood in her stool, syncope or a near syncopal episode, bowel incontinence, bladder incontinence, bowel retention, bladder retention, or any other complaints at this time. Relieving factors: none Exacerbating factors: none Associated symptoms: nausea/vomiting Treatments prior to arrival: none Related Data Home Medications Medication Instructions Recorded Confirmed isosorbide mononitrate 30 mg 30 mg PO DAILY 03/11/23 04/27/23 tablet,extended release 24 hr lidocaine 5 % topical patch 1 patch topical DAILY 03/11/23 04/27/23 nifedipine 60 mg tablet,extended 60 mg PO DAILY 03/11/23 04/27/23 release 24 hr oxycodone 5 mg tablet 5 mg PO Q6H PRN severe pain 03/11/23 04/27/23 acetaminophen 325 mg tablet 650 mg PO Q4H PRN mild pain 03/20/23 04/27/23 cholecalciferol (vitamin D3) 50 50 mcg PO DAILY 03/20/23 04/27/23 mcg (2,000 unit) capsule sevelamer carbonate 0.8 gram oral 0.8 g PO TID 04/13/23 04/27/23 powder packet docusate sodium 100 mg capsule 100 mg PO DAILY PRN constipation 05/19/23 torsemide 20 mg tablet 40 mg PO BID@1200,1800 05/19/23 Previous Rx's Medication Instructions Recorded aspirin 81 mg tablet,delayed 81 mg PO DAILY #30 tabs 01/29/23 release off loading boot #1 ea 03/14/23 carvedilol 25 mg tablet 25 mg PO BID #60 tabs 03/22/23 losartan 50 mg tablet 50 mg PO DAILY #30 tabs 03/22/23 sodium bicarbonate 650 mg tablet 650 mg PO TID #90 tabs 03/22/23 clonidine HCl 0.1 mg tablet 0.3 mg PO BID #60 tabs 03/28/23 hydralazine 100 mg tablet 50 mg (1/2 x 100 mg) PO TID #90 04/17/23 tabs Allergies Allergy/AdvReac Type Severity Reaction Status Date / Time morphine [MORPHINE] Allergy Intermediate Itching Verified 03/24/23 16:53 azithromycin [From Zithromax] Allergy Hives Verified 03/24/23 16:53 gabapentin Allergy Facial Verified 03/24/23 16:53 Swelling tramadol Allergy Facial Verified 03/24/23 16:53 Swelling vancomycin Allergy Anaphylaxis Verified 04/02/23 15:01 Review of Systems 2 Constitutional: Constitutional: Reports no additional constitutional complaints, Denies chills, Denies fever(s) and Denies night sweats Eyes: Eyes: Reports no additional eye complaints ENT: Denies dizziness Cardiovascular: Cardiovascular: Reports no additional cardiovascular complaints, Denies chest pain, Denies lightheadedness, Denies Loss of Consciousness and Denies dyspnea Respiratory: Respiratory: Reports no additional respiratory complaints and Denies dyspnea Gastrointestinal: Gastrointestinal: Reports no additional gastrointestinal complaints, Denies abdominal pain, Denies melena, Denies hematochezia, Denies change in bowel habits, Denies change in stool character, Reports nausea and Reports vomiting Genitourinary: Genitourinary: Denies hematuria, Denies urinary frequency, Denies dysuria, Denies urinary incontinence, Denies urinary hesitancy and Denies urinary urgency Musculoskeletal: Musculoskeletal: Reports no additional musculoskeletal complaints, Denies numbness and Denies tingling Comments: bilateral foot pain, foul smelling odor coming from both foot wounds Neurologic: Denies dizziness, Denies numbness and Denies tingling Psychiatric: Psychiatric: Reports no additional psychiatric complaints Endocrine: Endocrine: Reports no additional endocrine complaints Hematologic/Lymphatic: Hematologic/Lymphatic: Reports no additional hematologic/lymphatic complaints Allergic/Immunologic: Allergic/Immunologic: Reports no additional allergic/immunologic complaints PMFSH Past Medical History Attestation statement: The following information was validated with the patient. Source: old records reviewed and nursing notes reviewed Medical History Hypertension End-stage renal disease (ESRD) Foot ulcer CKD (chronic kidney disease) Hypertension Anemia Diabetic foot Vomiting Renal failure Hypertension Hyperkalemia Metabolic acidosis HFrEF (heart failure with reduced ejection fraction) ESRD on dialysis Migraine Diabetic foot ulcer associated with type 2 diabetes mellitus Chronic pain Gastroparesis Non-compliance with renal dialysis Hypertensive emergency Diabetes ESRD needing dialysis Cardiomyopathy delivery delivered Anemia in chronic kidney disease (CKD) CKD (chronic kidney disease) Headache, migraine Abnormal finding on echocardiogram Elevated troponin Chest pain Acute worsening of stage 3 chronic kidney disease Generalized edema Sepsis Cellulitis Pleural effusion CHF (congestive heart failure) (~06/07/22) Tachycardia Atypical chest pain Bone infection PAD (peripheral artery disease) Severe anemia Cellulitis and abscess of foot DM foot ulcer Osteomyelitis test positive test positive Asthma Depression with anxiety Diabetic retinopathy Type 2 diabetes mellitus with hyperglycemia, with long-term current use of insulin Blind right eye Diabetes Back pain Surgical History 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 Family History Family History Mother Coronary artery disease Myocardial infarction Stroke Diabetes mellitus Father Myocardial infarction Social History Social History Household Members: Family Household Members Other:: Sister, [id number], nephew Housing: Apartment Do you presently have visiting nurse or other home services: Yes ([employer]- sister) Unable to assess alcohol history related to: Unknown Alcohol intake: never Comment: refuses camera Patient Tobacco Use Status: Never used Tobacco Smoked in Last 30 Days: No e-Cigarette/Vaping Use: Never Used Second Hand Smoke Exposure: No Use of substances other than those prescribed or required for medical reasons: No Advance Directives: Yes Advance Directives on File: Yes Advance Directives Date on File: 03/08/20 service: No Current occupational status: unemployed and disabled Gender identity: Female Physical Exam ED Vital Signs: Vital Signs - 24 hr 05/19/23 13:44 05/19/23 14:40 Temperature 97.9 F Pulse Rate 100 99 Respiratory Rate 20 20 Blood Pressure 189/108 H 204/127 H Pulse Oximetry 100 100 Oxygen Delivery Method Nasal Cannula Nasal Cannula Oxygen Flow Rate 3 BMI result Body Mass Index 29.8 Const General: cooperative, no acute distress, alert and awake Nutritional Appearance: well nourished Orientation/consciousness: patient oriented x3 Limitations: no limitations HENMT Head: Yes normal to inspection and Yes atraumatic Ears: hearing grossly normal bilaterally and external ears normal General nose exam: Normal external nose present, no nasal discharge noted and no epistaxis Face and sinus: Yes normal facial exam, No abrasion and No laceration Mouth: Normal oral and palatal mucosa present, no drooling and no muffled voice Neck Neck: Yes normal visual inspection, Yes full ROM and Yes no lymphadenopathy Chest Chest palpation & inspection: normal inspection of the chest Resp Other: patient on 4 liters of oxygen via nasal canula at baseline Effort & Inspection: able to speak in complete sentences Auscultation: diminished lung sounds bilateral in the lower lung reynolds GI Inspection: Yes normal to inspection Palpation (GI): Soft to palpation, not firm, nontender and no guarding Neuro General: patient oriented x3 and moves all extremities Cognition (Neuro): normal cognition Motor exam (neuro): 5/5 motor strength present throughout Sensory Exam: Normal double simultaneous stimulation for sensation Coordination: [id number] test normal Extrem Other: status post amputation of the left 1 and 5th digits beyond the PIP joint with chronic dorsal wound, status post amputation of the right foot beyond the proximal first through fifth metatarsals with chronic dorsal wound. Psych Appearance: grossly normal Mental Status: mental status grossly normal Affect: normal affect Attitude: cooperative Thought process: Normal thought process present Thought content: Normal thought content present Insight: Good insight present (Psych) Medications Administered Discontinued Medications Generic Name Dose Route Start Last Admin Trade Name Freq PRN Reason Stop Dose Admin Hydromorphone HCl 1 mg 05/19/23 14:17 05/19/23 15:15 Hydromorphone Hcl 1 Mg/Ml Syringe IVPUSH 05/19/23 14:18 1 mg ONCE ONE Administration Protocol Piperacillin Sod/Tazobactam 50 mls @ 100 mls/hr 05/19/23 15:27 05/19/23 15:56 Sod 3.375 gm/ Sodium Chloride IV 05/19/23 15:56 100 mls/hr ONCE ONE Administration Ondansetron HCl 4 mg 05/19/23 14:17 05/19/23 15:13 Ondansetron Hcl 4 Mg/2 Ml Vial IVPUSH 05/19/23 14:18 4 mg ONCE ONE Administration Medical Decision Making Medical Decision Making [facility] Narrative: Patient is a 32 year old assigned female at with a history of CKD requiring dialysis, HTN, and heart failure chronically on 4 liters of oxygen via nasal canula presenting to the emergency department today with nausea, vomiting, missed dialysis, and bilateral foot pain. Patient's physical exam was as noted in the physical exam portion of this note. Patient's blood work showed an elevated CR of 6.12 and BUN of 62. The rest of the patient's labs were unremarkable. Patient's EKG was unremarkable. Patient's bilateral foot x-rays showed evidence of new soft tissue gas of the right foot but was otherwise consistent with the patient's previous exams. Patient given IV ceftriaxone to cover for infection of the feet. Patient's clinical presentation is not consistent with sepsis (@1600). Patient is chronically hypertensive and was during her time in the ED. Patient will need to be admitted for continued IV ABX and to be dialyzed. I spoke to the hospitalist team who requested a chest x-ray and to decrease the patient's blood pressure. IV anti-hypertensives ordered. Patient signed out to evening MANNY to follow up on blood pressures and admission status. I explained my physical exam findings as well as all test results to the patient. I answered all questions asked by the patient. Patient verbalized agreement and understanding with this treatment plan and admission. Differential Diagnosis Differential Diagnoses: The differential diagnosis associated with the presentation includes Cellulitis Kidney failure Need for dialysis Nausea Vomiting Admission/Observation Consideration of admission/observation: Escalation of care including admission/observation considered Patient to be admitted. Consult Healthcare Provider Management of the patient was discussed with: Hospitalist (spoke about admission as noted in the MDM Rationale portion of this note.) Lab Data [facility] Lab Attestation statement: I reviewed the patient's lab results. My interpretation of these results are in the MDM Rationale portion of this note. 05/19/23 14:56 05/19/23 14:56 Labs: Lab Results 05/19/23 Range/Units 14:56 WBC 6.0 (4.8-10.8) X10*3/uL RBC 3.08 L (4.20-5.50) X10*6/uL Hgb 9.1 L (12.0-16.0) g/dl Hct 28.7 L (37.0-47.0) % MCV 93.2 (80.0-98.0) fL MCH 29.5 (27.0-33.0) pg MCHC 31.7 (31.0-35.0) g/dl RDW 16.4 H (11.0-16.0) % Plt Count 157 L (160-400) X10*3/uL MPV 11.4 (9.4-12.3) fL Immature Gran % (Auto) 0.2 (0.0-0.4) % Neut % (Auto) 81.6 H (45-73) % Lymph % (Auto) 10.1 L (20-40) % Borden % (Auto) 6.3 (2-11) % Eos % (Auto) 1.5 (0-4) % Baso % (Auto) 0.3 (0-2) % Lymph # (Auto) 0.6 L (1.2-4.9) X10*3/uL Borden # (Auto) 0.4 (0.1-1.2) X10*3/uL Eos # (Auto) 0.1 (0.0-0.4) X10*3/uL Baso # (Auto) 0.0 (0.0-0.2) X10*3/uL Abs Immat Gran (auto) 0.01 (0.00-0.03) X10*3/uL Absolute Neuts (auto) 4.9 (2.0-8.3) x10*3/uL Absolute Nucleated RBC 0.000 (0.0-0.012) X10*3/uL Nucleated RBC % (auto) 0.0 (0.0-0.2) /100WBC Sodium 136 (135-145) mmol/L Potassium 5.1 D (3.3-5.1) mmol/L Chloride 105 (96-108) mmol/L Carbon Dioxide 19 L (22-29) mmol/L Anion Gap 17 (12-20) BUN 62 H (9-16) mg/dL Creatinine 6.12 H* (0.5-1.4) mg/dL Estim Creat Clear Calc 14.1 Estimated GFR 8 Random Glucose 94 (60-115) mg/dL Lactic Acid 0.9 (0.5-2.0) mmol/L Calcium 8.4 (8.4-10.2) mg/dL Magnesium 2.1 (1.6-2.6) mg/dL Total Bilirubin 1.2 H (0.0-1.0) mg/dL AST 25 (5-31) U/L ALT 19 (0-31) U/L Alkaline Phosphatase 155 H (39-117) U/L Total Protein 7.2 (6.5-8.0) g/dL Albumin 3.2 L (3.5-5.0) g/dL Influenza Type A (PCR) NEGATIVE (Negative) Influenza Type B (PCR) NEGATIVE (Negative) RSV RNA Qual (PCR) NEGATIVE (Negative) SARS-CoV-2 RNA (RT-PCR) NEGATIVE (Negative) Independent Interpretation I performed an independent interpretation of an: EKG and Plain X-Ray Interpretation: My interpretation is in agreement with the radiologist's impression of this imaging study. - Examination: Right foot and left foot. CLINICAL INDICATION: Foot pain. Concern for osteomyelitis. COMPARISON: Right foot 04/12/2023. TECHNIQUE: 3 views right foot and 3 views left foot. FINDINGS: Left foot: There is amputation of first digit beyond the proximal metatarsal. The stump appears unremarkable. No bony erosive changes or periosteal thickening seen. There is mild periosteal thickening along the third metatarsal likely old healed stress fracture. There is hypertrophic bony changes along the fourth metatarsal likely old healed fracture. There is hypertrophic bony changes along the distal fourth metatarsal. The PIP and DIP joints of second third and fourth digit is normal. There is amputation of fifth digit beyond the PIP joint. The ankle mortise and subtalar joints are normal. There is a soft tissue gas along the plantar foot likely ulceration or laceration. It is distant to the nearest metatarsal. There is no suspicion for osteomyelitis. Right foot: There is amputation of right foot beyond the proximal first through fifth metatarsals. There is soft tissue gas along medial stump but no bony erosive changes seen involving any of the amputation sites. No periosteal thickening or elevation. No suspicion for osteomyelitis. Soft tissue gas along the medial stump is new since the last exam 04/12/2023 XR/XR foot LT min 3V IMPRESSION: 1. Amputation of left first digit and left fifth digit beyond the PIP joint. No bony erosive changes or periosteal thickening seen to suggest osteomyelitis. There is soft tissue gas along the mid plantar aspect of the left foot likely ulceration or laceration. 2. There is amputation of right foot beyond the proximal first through fifth metatarsals. 3. There is soft tissue gas along the medial stump but no bony erosive changes seen. The soft tissue gas right foot is new since the previous exam 04/12/2023 right foot exam Dictated By: Cam Garza MD Signed By: Electronically signed by Cam Garza MD 05/19/23 1520 Vent. Rate: 097 BPM Atrial Rate: 097 BPM P-R Int: 152 ms QRS Dur : 166 ms QT Int: 424 ms P-R-T Axes: 040 -07 065 degrees QTc Int: 538 ms Normal sinus rhythm Possible Left atrial enlargement Right bundle branch block Abnormal ECG When compared with ECG of 27-APR-2023 14:32, Nonspecific T wave abnormality no longer evident in Inferior leads DD/ [id number] Radiology Impression Discussion of test interpretation with radiology: I have reviewed the radiologist's reading. Independent Historian Clinical information obtained from an independent historian. History obtained from or confirmed by: EMS (EMS provided additional history and confirmed the history provided by the patient) Critical Care Time Critical Care Time Critical Care Time: Yes Total Critical Care Time: 128 Attestation: I spent 128 minutes of Critical Care Time with this patient. This does not include time spent on separately reported billable procedures. Discharge Plan Discharge Clinical Impression: End-stage renal disease (ESRD), Cellulitis Patient Disposition: Admitted As Inpatient
--- NOTE | 2023-05-19 14:18 | ECG_ITS ---
Test Reason : N/V/HTN Blood Pressure : / mmHG Vent. Rate : 097 BPM Atrial Rate : 097 BPM P-R Int : 152 ms QRS Dur : 166 ms QT Int : 424 ms P-R-T Axes : 040 -07 065 degrees QTc Int : 538 ms Normal sinus rhythm Possible Left atrial enlargement Right bundle branch block Abnormal ECG When compared with ECG of 27-APR-2023 14:32, No significant changes seen Referred By: Adelaide Macias Electronically Signed By:JASKARAN COOL
[2023-05-19 14:40] VITALS: BP 204/127; PULSE 99; RESP 20; O2SAT 100
[2023-05-19 15:03] LABS: MANUAL DIFF FLAG NO
[2023-05-19 15:09] LABS: Basophils Percent Auto 0.3 % (0-2); Eosinophils Absolute Auto 0.1 X10*3/uL (0.0-0.4); Eosinophils Percent Auto 1.5 % (0-4); Hematocrit 28.7 % (37.0-47.0); Hemoglobin 9.1 g/dl (12.0-16.0); Imm Gran Abs Auto 0.01 X10*3/uL (0.00-0.03); Imm Gran Pct Auto 0.2 % (0.0-0.4); Lymphocytes Absolute Auto 0.6 X10*3/uL (1.2-4.9); Lymphocytes Percent Auto 10.1 % (20-40); Mean Corpuscular HGB Conc 31.7 g/dl (31.0-35.0); Mean Corpuscular Hemoglobin 29.5 pg (27.0-33.0); Mean Corpuscular Volume 93.2 fL (80.0-98.0); Mean Platelet Volume 11.4 fL (9.4-12.3); Monocytes Absolute Auto 0.4 X10*3/uL (0.1-1.2); Monocytes Percent Auto 6.3 % (2-11); Neutrophils Absolute Auto 4.9 x10*3/uL (2.0-8.3); Neutrophils Percent Auto 81.6 % (45-73); Platelet Count 157 X10*3/uL (160-400); Red Blood Count 3.08 X10*6/uL (4.20-5.50); Red Cell Distribution Width 16.4 % (11.0-16.0)
[2023-05-19] MEDS: ondansetron HCL 4 MG/2 ML VIAL IVPUSH ×2 (15:13→20:49)
[2023-05-19 15:15] LABS: Lactic Acid 0.9 mmol/L (0.5-2.0)
[2023-05-19] MEDS: HYDROmorphone HCl 1 MG/ML SYRINGE IVPUSH (15:15)
[2023-05-19 15:22] LABS: Alanine Aminotransferase 19 U/L (0-31); Albumin Level 3.2 g/dL (3.5-5.0); Alkaline Phosphatase 155 U/L (39-117); Anion Gap 17 (12-20); Aspartate Amino Transferase 25 U/L (5-31); Bilirubin Total 1.2 mg/dL (0.0-1.0); Blood Urea Nitrogen 62 mg/dL (9-16); Calcium 8.4 mg/dL (8.4-10.2); Carbon Dioxide 19 mmol/L (22-29); Chloride 105 mmol/L (96-108); Creatinine Clr Calc Pharmacy 14.1; Estimated Glomerular Filt Rate 8; Glucose Random 94 mg/dL (60-115); Magnesium 2.1 mg/dL (1.6-2.6); Potassium 5.1 mmol/L (3.3-5.1); Sodium 136 mmol/L (135-145); Total Protein 7.2 g/dL (6.5-8.0)
[2023-05-19 15:40] LABS: Influenza A PCR NEGATIVE (Negative); Influenza B PCR NEGATIVE (Negative); Resp Syncy Virus RNA Qual PCR NEGATIVE (Negative); SARS COV2 PCR INHOUSE NEGATIVE (Negative)
[2023-05-19] MEDS: Piperacillin Sodium/Tazobactam 3.375 GM in 0.9 % Sodium Chloride 50 ML IV (15:56)
--- NOTE | 2023-05-19 15:56 | P.HPHOSP_ITS ---
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 Patient states that the past few days she has noticed a foul-smelling discharge coming from her wounds, which have also been more painful than normal. Denies fever, chills. Patient also reports missing dialysis due to an appointment with her PCP. No other acute medical complaints at this time. In the ED pt was was afebrile, but tachycardic up to 100, and hypertensive up to 204/127. Labs were significant for ESR 70, BUN 62, creatinine 6.12, bilirubin 1.2, alk-phos 155, and C-reactive protein 1.02. No significant electrolyte abnormalities. CXR showed low lung volumes with suspected minimal bibasilar atelectasis. X-ray of left foot showed evidence of osteomyelitis, but did show soft tissue gas along mid plantar aspect of foot new since previous exam on 04/12/2023. X-ray of right foot found soft tissue gas along medial. But no bony erosive changes to suggest osteomyelitis. EKG demonstrated normal sinus rhythm with RBBB and possible left atrial enlargement, similar to previous. Pt was treated with ondansetron, Dilaudid, Zosyn, daptomycin, hydralazine, and labetalol. Pt will be admitted to the hospital for treatment and further evaluation of worsening chronic diabetic foot wounds and worsening kidney function secondary to missed dialysis. Review of Systems 2 Review of Systems: Worsening chronic diabetic foot wounds with purulent discharge and pain Missed dialysis on , last dialysis 05/14 [facility] Medical History Hypertension End-stage renal disease (ESRD) Foot ulcer CKD (chronic kidney disease) Hypertension Anemia Diabetic foot Vomiting Renal failure Hypertension Hyperkalemia Metabolic acidosis HFrEF (heart failure with reduced ejection fraction) ESRD on dialysis Migraine Diabetic foot ulcer associated with type 2 diabetes mellitus Chronic pain Gastroparesis Non-compliance with renal dialysis Hypertensive emergency Diabetes ESRD needing dialysis Cardiomyopathy delivery delivered Anemia in chronic kidney disease (CKD) CKD (chronic kidney disease) Headache, migraine Abnormal finding on echocardiogram Elevated troponin Chest pain Acute worsening of stage 3 chronic kidney disease Generalized edema Sepsis Cellulitis Pleural effusion CHF (congestive heart failure) (~06/07/22) Tachycardia Atypical chest pain Bone infection PAD (peripheral artery disease) Severe anemia Cellulitis and abscess of foot DM foot ulcer Osteomyelitis test positive test positive Asthma Depression with anxiety Diabetic retinopathy Type 2 diabetes mellitus with hyperglycemia, with long-term current use of insulin Blind right eye Diabetes Back pain Family History Mother Coronary artery disease Myocardial infarction Stroke Diabetes mellitus Father Myocardial infarction Surgical History 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 Social History Household Members: Family Household Members Other:: Sister, [id number], nephew Housing: Apartment Do you presently have visiting nurse or other home services: No Unable to assess alcohol history related to: Unknown Alcohol intake: never Comment: refuses camera Patient Tobacco Use Status: Never used Tobacco Smoked in Last 30 Days: No e-Cigarette/Vaping Use: Never Used Second Hand Smoke Exposure: No Use of substances other than those prescribed or required for medical reasons: No Currently Displaying Signs/Symptoms of Drug Intoxication Withdrawal: No Have you been hit, kicked, punched, or otherwise hurt by someone within the past year? If so, by whom?: No Do you feel safe in your current relationship?: Yes Is there a partner from a previous relationship who is making you feel unsafe now?: No Are you made to feel afraid or neglected: No Advance Directives: Yes Advance Directives on File: Yes Advance Directives Date on File: 03/08/20 Do you have thoughts of harming others: None Do you have a plan to hurt others: No Plan Recently lost weight without trying: Unsure Eating poorly because of decreased appetite: No Nutrition Risks: Binging/Purging Patient : No : No Poor oral hygiene: No service: No Current occupational status: unemployed and disabled Gender identity: Female Meds Allergies Allergy/AdvReac Type Severity Reaction Status Date / Time morphine [MORPHINE] Allergy Intermediate Itching Verified 03/24/23 16:53 azithromycin [From Zithromax] Allergy Hives Verified 03/24/23 16:53 gabapentin Allergy Facial Verified 03/24/23 16:53 Swelling tramadol Allergy Facial Verified 03/24/23 16:53 Swelling vancomycin Allergy Anaphylaxis Verified 04/02/23 15:01 Home Medications Medication Instructions Recorded Confirmed Last Taken Type isosorbide mononitrate 30 mg 30 mg PO DAILY 03/11/23 05/19/23 03/20/23 History tablet,extended release 24 hr lidocaine 5 % topical patch 1 patch topical DAILY 03/11/23 05/19/23 03/20/23 History nifedipine 60 mg tablet,extended 60 mg PO DAILY 03/11/23 05/19/23 03/20/23 History release 24 hr oxycodone 5 mg tablet 5 mg PO Q6H PRN severe pain 03/11/23 05/19/23 03/20/23 History acetaminophen 325 mg tablet 650 mg PO Q4H PRN mild pain 03/20/23 05/19/23 Unknown History cholecalciferol (vitamin D3) 50 50 mcg PO DAILY 03/20/23 05/19/23 Unknown History mcg (2,000 unit) capsule carvedilol 25 mg tablet 12.5 mg PO BID 05/19/23 05/19/23 Unknown History docusate sodium 100 mg capsule 100 mg PO DAILY PRN constipation 05/19/23 05/19/23 Unknown History torsemide 20 mg tablet 40 mg PO BID@1200,1800 05/19/23 05/19/23 Unknown History Physical Exam 2 Vital Signs and Narrative: Vital Signs: Last Vital Signs Temp 97.9 F 05/19/23 13:44 Pulse 99 05/19/23 14:40 Resp 20 05/19/23 14:40 BP 204/127 H 05/19/23 14:40 Pulse Ox 100 05/19/23 14:40 O2 Del Method Nasal Cannula 05/19/23 14:40 O2 Flow Rate 3 05/19/23 14:40 Oxygen Flow Rate 3 05/19/23 13:44 BMI result Body Mass Index 29.8 Constitutional: Alert, looks unconfortable, in no acute distress. Mental Status: Oriented to person, place and time. Eyes: Pt legally blind in both eyes. Ear, Nose, and Throat: Oropharynx clear, mucous membranes moist. Ears and nose without deformities. Trachea midline. Respiratory: Clear to auscultation bilaterally. No wheezing, rales, or rhonchi. Cardiovascular: S1, S2, tachy. No murmurs, rubs, or gallops. Gastrointestinal: Abdomen soft, non-distended. Diffusely tender to palpation. Normal bowel sounds. Neurologic: Cranial nerves II-XII are grossly intact bilaterally. No focal neurological deficits. Moves all extremities spontaneously. Skin: Warm, dry. Musculoskeletal: No cyanosis or clubbing. Extremities: No edema. Right foot s/p TMA. Left foot with nonhealing chronic and foot ulcer as pictured below. No obvious erythema or induration or significant discharge appreciated. Psychiatric: Normal mood and affect. Results Labs 05/19/23 14:56 05/20/23 06:08 Labs: Laboratory Results - last 24 hr 05/19/23 14:56 MCV 93.2 MCH 29.5 MCHC 31.7 RDW 16.4 H Plt Count 157 L MPV 11.4 Immature Gran % (Auto) 0.2 Neut % (Auto) 81.6 H Lymph % (Auto) 10.1 L Cataño % (Auto) 6.3 Eos % (Auto) 1.5 Baso % (Auto) 0.3 Lymph # (Auto) 0.6 L Cata[place] # (Auto) 0.4 Eos # (Auto) 0.1 Baso # (Auto) 0.0 Abs Immat Gran (auto) 0.01 Absolute Neuts (auto) 4.9 Absolute Nucleated RBC 0.000 Nucleated RBC % (auto) 0.0 Anion Gap 17 Estim Creat Clear Calc 14.1 Estimated GFR 8 Random Glucose 94 Lactic Acid 0.9 Calcium 8.4 Magnesium 2.1 Total Bilirubin 1.2 H AST 25 ALT 19 Alkaline Phosphatase 155 H Total Protein 7.2 Albumin 3.2 L Influenza Type A (PCR) NEGATIVE Influenza Type B (PCR) NEGATIVE RSV RNA Qual (PCR) NEGATIVE SARS-CoV-2 RNA (RT-PCR) NEGATIVE Imaging Radiologist's Impressions: Impressions Foot X-Ray 05/19/23 14:39 IMPRESSION: 1. Amputation of left first digit and left fifth digit beyond the PIP joint. No bony erosive changes or periosteal thickening seen to suggest osteomyelitis. There is soft tissue gas along the mid plantar aspect of the left foot likely ulceration or laceration. 2. There is amputation of right foot beyond the proximal first through fifth metatarsals. 3. There is soft tissue gas along the medial stump but no bony erosive changes seen. The soft tissue gas right foot is new since the previous exam 04/12/2023 right foot exam Foot X-Ray 05/19/23 14:39 IMPRESSION: 1. Amputation of left first digit and left fifth digit beyond the PIP joint. No bony erosive changes or periosteal thickening seen to suggest osteomyelitis. There is soft tissue gas along the mid plantar aspect of the left foot likely ulceration or laceration. 2. There is amputation of right foot beyond the proximal first through fifth metatarsals. 3. There is soft tissue gas along the medial stump but no bony erosive changes seen. 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 Pt will be admitted to the hospital for treatment and further evaluation of worsening chronic diabetic foot wounds and worsening kidney function secondary to missed dialysis. Chronic diabetic left foot ulcer Pt complains of worsening wounds with foul-smelling discharge, concern for acute on chronic infection X-ray negative for osteomyelitis though showed soft tissue gas in both left and right foot; ESR 70, CRP 1.02 Pt does not meet sepsis criteria: Tachycardia, but no fever, tachypnea, or leukocytosis; lactic acid WNL at 0.9 Pt started on broad spectrum antibiotics in the ED Will treat with Zosyn and doxycycline, started 05/19/2023 Wound care recommendations during admission 1 month ago: alginate Ag to wound bed with dry gauze, ABD pad and gauze wrap, changing daily Hypertensive urgency BP as high as 204/127 in the ED Pt with long hx of hypertensive urgency/crisis/accelerated hypertension secondary to medication noncompliance Was given labetalol 10 mg IV and hydralazine 10 mg IV in ED Will treat with hyralazine 10mg IV prn for SBP>200 Resume home antihypertensives ESRD on HD /Sat Missed dialysis on Last dialyzed Sunday, 05/14 Pt has not been attending Sat dialysis from home d/t noncompliance Electrolytes currently WNL Nephrology consult Follow BMP [id number] diabetes type 2 Patient noncompliant with medications Place on sliding scale insulin Diabetic diet once advanced Full Code Attending:?Dr. Bess DVT Prophylaxis: Heparin Quality Stroke Does the patient have a stroke diagnosis?: No VTE Prior VTE?: No VTE Risk Level:: Medical - moderate - high VTE Device Contraindication: Treatment Not Indicated VTE Drug Contraindication: N/A - Med Ordered
[2023-05-19] MEDS: hydrALAZINE HCl 20 MG/ML VIAL 10 MG IVPUSH (16:15)
[2023-05-19] MEDS: Labetalol HCL 100 MG/20 ML VIAL 10 MG IVPUSH (16:19)
[2023-05-19 16:52] LABS: C Reactive Protein 1.02 mg/dL (< or = 0.50)
[2023-05-19 16:54] VITALS: BP 161/94; PULSE 91; RESP 16; TEMP 36.7; O2SAT 100
--- NOTE | 2023-05-19 17:45 | PHA.MEDREC ---
Pharmacy Consult ? Medication Reconciliation Pharmacy has completed the medication reconciliation. Pt states they are no longer on sevelamer or sodium bicarb. Pt states coreg was changed to 12.5 mg BID and that they are taking torsemide 40 mg BID.
--- NOTE | 2023-05-19 17:50 | PC.NURSE ---
waiting for Pharm to bring up Dapto
[2023-05-19 18:00] VITALS: BP 166/98; PULSE 92; RESP 16; O2SAT 100
[2023-05-19 18:01] LABS: Erythrocyte Sedimentation Rate 70 MM/HR (0-20)
[2023-05-19] MEDS: Isosorbide Mononitrate 30 MG TAB.ER.24H PO (19:28)
[2023-05-19] MEDS: Losartan Potassium 50 MG TABLET PO (19:28)
[2023-05-19 20:00] VITALS: BP 193/113; PULSE 94; RESP 18; TEMP 36.3; O2SAT 100
[2023-05-19 20:45] LABS: Glucose, Whole Blood 74 mg/dL (60-115)
[2023-05-19] MEDS: carvediloL 12.5 MG TABLET PO (21:31)
[2023-05-19] MEDS: NIFEdipine ER 60 MG TAB.ER.24 PO (21:31)
[2023-05-19] MEDS: cloNIDine HCL 0.1 MG TABLET 0.3 MG PO (21:31)
[2023-05-19] MEDS: hydrALAZINE HCl 50 MG TABLET PO (21:32)
--- NOTE | 2023-05-19 22:23 | HO.SKINPHOTO ---
Location:right foot Category: Stage: Length: Width: Depth: cm Location: Category: Stage: Length: Width: Depth: cm Location: Category: Stage: Length: Width: Depth: cm Location: Category: Stage: Length: Width: Depth: cm Location: Category: Stage: Length: Width: Depth: cm Location: Category: Stage: Length: Width: Depth: cm
--- NOTE | 2023-05-19 22:25 | HO.SKINPHOTO ---
Location:lt foot Category: Stage: Length: Width: Depth: cm Location: Category: Stage: Length: Width: Depth: cm Location: Category: Stage: Length: Width: Depth: cm Location: Category: Stage: Length: Width: Depth: cm Location: Category: Stage: Length: Width: Depth: cm Location: Category: Stage: Length: Width: Depth: cm
--- NOTE | 2023-05-19 22:27 | HO.SKINPHOTO ---
Location:left foot Category: Stage: Length: Width: Depth: cm Location: Category: Stage: Length: Width: Depth: cm Location: Category: Stage: Length: Width: Depth: cm Location: Category: Stage: Length: Width: Depth: cm Location: Category: Stage: Length: Width: Depth: cm Location: Category: Stage: Length: Width: Depth: cm
[2023-05-19 23:16] VITALS: BP 118/63; PULSE 70; RESP 19; TEMP 36.2; O2SAT 97
[2023-05-20] VITALS (8 sets, daily range): BP systolic 86–136; BP diastolic 48–66; PULSE 71–87; RESP 16–20; TEMP 36.1–36.8; O2SAT 94–99
[2023-05-20] MEDS: Piperacillin Sodium/Tazobactam 2.25 GM in 0.9 % Sodium Chloride 50 ML IV ×3 (00:20→15:55)
[2023-05-20] MEDS: 0.9 % Sodium Chloride Flush 3 ML SYRINGE IVFLUSH ×3 (00:21→15:56)
[2023-05-20 07:00] LABS: Anion Gap 12 (12-20); Blood Urea Nitrogen 54 mg/dL (9-16); Calcium 8.1 mg/dL (8.4-10.2); Carbon Dioxide 21 mmol/L (22-29); Chloride 107 mmol/L (96-108); Creatinine Clr Calc Pharmacy 14.9; Estimated Glomerular Filt Rate 8; Glucose Random 146 mg/dL (60-115); Potassium 4.5 mmol/L (3.3-5.1); Sodium 135 mmol/L (135-145)
[2023-05-20 07:10] LABS: Glucose, Whole Blood 133 mg/dL (60-115)
[2023-05-20] MEDS: Doxycycline Hyclate 100 MG in 0.9 % Sodium Chloride 250 ML 166.67 MG IV (10:27)
[2023-05-20 10:59] LABS: Glucose, Whole Blood 106 mg/dL (60-115)
--- NOTE | 2023-05-20 11:38 | HO.PM.IMPN ---
Subjective Subjective Date of Service: 05/20/23 Interval History: foot cellulitis ,uncontrolled htn Review of Systems foot area seems improvinf,no discharge no fever Physical Exam Vital Signs: Vital Signs: Last Vital Signs Temp 97.1 F 05/20/23 11:07 Pulse 76 05/20/23 11:07 Resp 18 05/20/23 11:07 BP 132/66 05/20/23 11:07 Pulse Ox 96 05/20/23 11:07 O2 Del Method Room Air 05/20/23 11:07 O2 Flow Rate 2 05/20/23 09:24 Oxygen Flow Rate 3 05/19/23 13:44 BMI result Body Mass Index 29.8 Appearance: Alert.? Oriented X3.? cvs: [id number], [id number] . res: clear to auscultation ,no rhonchii or wheezing abd: no rebound or guarding ,nt, bs present. ext pulses present , no edema. foot skin-seems similar( look foot pics) neuro: axo3 , nonfocal. Objective Data Active Medications Acetaminophen (Acetaminophen 325 Mg Tablet) 650 mg PO Q6H PRN PRN Reason: Pain, Mild (Pain Scale 1-3) Aspirin (Aspirin Enteric Coated 81 Mg Tablet.) 81 mg PO DAILY [facility] Last Admin: 05/20/23 10:34 Dose: Not Given Documented By: LARRY Non-Admin Reason: Patient Refused Benzonatate (Benzonatate 100 Mg Capsule) 100 mg PO TID PRN PRN Reason: Cough Carvedilol (Carvedilol 12.5 Mg Tablet) 12.5 mg PO BID [facility]; Protocol Last Admin: 05/20/23 10:34 Dose: Not Given Documented By: LARRY Non-Admin Reason: Patient Refused Clonidine HCl (Clonidine Hcl 0.1 Mg Tablet) 0.3 mg PO BID [facility]; Protocol Last Admin: 05/20/23 10:34 Dose: Not Given Documented By: LARRY Non-Admin Reason: Patient Refused Dextrose (Dextrose 50 % 25 Gm/50 Ml Syringe) 25 gm IVPUSH Q15M PRN; Protocol PRN Reason: per Hypoglycemia Standing Ord. Docusate Sodium (Docusate Sodium 100 Mg Capsule) 100 mg PO DAILY PRN PRN Reason: Constipation Glucose (Glucose Gel 15 Gm Gel..Gram.) 15 gm PO Q15M PRN; Protocol PRN Reason: per Hypoglycemia Standing Ord. Heparin Sodium (Porcine) (Heparin Sodium,Porcine 5,000 Unit/Ml Vial) 5,000 unit SUBCUT Q8H [facility] Last Admin: 05/20/23 10:35 Dose: Not Given Documented By: LARRY Non-Admin Reason: Patient Refused Hydralazine HCl (Hydralazine Hcl 50 Mg Tablet) 50 mg PO TID [facility]; Protocol Last Admin: 05/20/23 10:34 Dose: Not Given Documented By: LARRY Non-Admin Reason: Patient Refused Doxycycline Hyclate 100 mg/ (Sodium Chloride) 250 mls @ 166.67 mls/hr IV Q12H [facility] Last Admin: 05/20/23 10:27 Dose: 166.67 mls/hr Documented By: LARRY Piperacillin Sod/Tazobactam (Sod 2.25 gm/ Sodium Chloride) 50 mls @ 100 mls/hr IV Q8H [facility] Last Infusion: 05/20/23 10:15 Dose: Infused Documented By: LARRY Insulin Human Lispro (Insulin Lispro 100 Unit/Ml 3 Ml Vial) 0 unit SUBCUT QIDACHS [facility]; Protocol Last Admin: 05/20/23 11:16 Dose: Not Given Documented By: LARRY Non-Admin Reason: No Insulin Coverage Isosorbide Mononitrate (Isosorbide Mononitrate 30 Mg Tab.Er.24h) 30 mg PO DAILY [facility]; Protocol Last Admin: 05/20/23 10:35 Dose: Not Given Documented By: LARRY Non-Admin Reason: Patient Refused Losartan Potassium (Losartan Potassium 50 Mg Tablet) 50 mg PO DAILY [facility]; Protocol Last Admin: 05/20/23 10:35 Dose: Not Given Documented By: LARRY Non-Admin Reason: Patient Refused Melatonin (Melatonin 3 Mg Tablet) 6 mg PO BEDTIME PRN PRN Reason: Insomnia Nifedipine (Nifedipine Er 60 Mg Tab.Er.24) 60 mg PO DAILY [facility]; Protocol Last Admin: 05/20/23 10:35 Dose: Not Given Documented By: LARRY Non-Admin Reason: Patient Refused Non-Formulary Medication (Lidocaine) 1 patch TOPICAL DAILY [facility] Last Admin: 05/20/23 10:35 Dose: Not Given Documented By: LARRY Non-Admin Reason: Patient Refused Ondansetron HCl (Ondansetron Hcl 4 Mg/2 Ml Vial) 4 mg IVPUSH Q8H PRN PRN Reason: Nausea and Vomiting Last Admin: 05/19/23 20:49 Dose: 4 mg Documented By: PARAG Oxycodone HCl (Oxycodone Hcl Immed Release 5 Mg Tablet) 5 mg PO Q6H PRN PRN Reason: Pain, Severe (Pain Scale 7-10) Sodium Chloride (0.9 % Sodium Chloride Flush 3 Ml Syringe) 3 ml IVFLUSH QSHIFT [facility] Last Admin: 05/20/23 09:44 Dose: 3 ml Documented By: LARRY Torsemide (Torsemide 20 Mg Tablet) 40 mg PO BID@1200,1800 [facility]; Protocol Vitamin D (Cholecalciferol (Vitamin D3) 25 Mcg Tablet) 50 mcg PO DAILY [facility] Last Admin: 05/20/23 10:34 Dose: Not Given Documented By: LARRY Non-Admin Reason: Patient Refused Labs 05/19/23 14:56 05/20/23 06:08 Labs: Laboratory Results - last 24 hr 05/19/23 05/19/23 05/20/23 14:56 20:40 06:08 MCV 93.2 MCH 29.5 MCHC 31.7 RDW 16.4 H Plt Count 157 L MPV 11.4 Immature Gran % (Auto) 0.2 Neut % (Auto) 81.6 H Lymph % (Auto) 10.1 L [place] % (Auto) 6.3 Eos % (Auto) 1.5 Baso % (Auto) 0.3 Lymph # (Auto) 0.6 L [place] # (Auto) 0.4 Eos # (Auto) 0.1 Baso # (Auto) 0.0 Abs Immat Gran (auto) 0.01 Absolute Neuts (auto) 4.9 Absolute Nucleated RBC 0.000 Nucleated RBC % (auto) 0.0 ESR 70 H Hold Purple Top SEE NOTE Anion Gap 17 12 Estim Creat Clear Calc 14.1 14.9 Estimated GFR 8 8 POC Glucose 74 Random Glucose 94 146 H Lactic Acid 0.9 Calcium 8.4 8.1 L Magnesium 2.1 Total Bilirubin 1.2 H AST 25 ALT 19 Alkaline Phosphatase 155 H Total Creatine Kinase 56 C-Reactive Protein 1.02 H Total Protein 7.2 Albumin 3.2 L Influenza Type A (PCR) NEGATIVE Influenza Type B (PCR) NEGATIVE RSV RNA Qual (PCR) NEGATIVE SARS-CoV-2 RNA (RT-PCR) NEGATIVE 05/20/23 05/20/23 07:02 10:54 MCV MCH MCHC RDW Plt Count MPV Immature Gran % (Auto) Neut % (Auto) Lymph % (Auto) [place] % (Auto) Eos % (Auto) Baso % (Auto) Lymph # (Auto) [place] # (Auto) Eos # (Auto) Baso # (Auto) Abs Immat Gran (auto) Absolute Neuts (auto) Absolute Nucleated RBC Nucleated RBC % (auto) ESR Hold Purple Top Anion Gap Estim Creat Clear Calc Estimated GFR POC Glucose 133 H 106 Random Glucose Lactic Acid Calcium Magnesium Total Bilirubin AST ALT Alkaline Phosphatase Total Creatine Kinase C-Reactive Protein Total Protein Albumin Influenza Type A (PCR) Influenza Type B (PCR) RSV RNA Qual (PCR) SARS-CoV-2 RNA (RT-PCR) Assessment and Plan (1) Cellulitis: Status: Acute (2) Foot ulcer: Status: Acute Plan 32-year-old female with a PMH significant for?ESRD on dialysis Sun/Sun/Sun (none x2 weeks), 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 clelulitis in setting ch dm foot ulcers X-ray negative for osteomyelitis though showed soft tissue gas in both left and right foot; esr 70 ,crp1 blood cultures pending no fever or leucocytosis plan: continue iv doxycycline/zosyn Id eval. wound care eval ESRD on HD Marked improvement in divalent with hemodialysis -appreciate renal input. HD as per renal -will treat abdominal pain nausea and vomiting as per usual with IV analgesia and Zofran -replete potassium as per Nephrology Diabetes type 2: Noncompliance again the issue. Unclear if any medicines at home -lispro correctional scale -diabetic diet -adjust as indicated uncontrolled Hypertension Noncompliance with therapies. Per past admissions BP corrects when home therapies restarted -restart outpatient therapies(coreg,imdur ,hydralazine ,procardia,clonidine) -adjust as indicated Full code Heparin ongoing hospitlisation need to facilitate adequate dialysis given noncompliance and also possible foot cellulitus with ch dm foot ulcers -need iv antibiotics ,renal function /electrolytes moniter as well as blood pressure monitering ,Id exper eval. Quality Stroke Does the patient have a stroke diagnosis?: No VTE Prior VTE?: No VTE Risk Level:: Medical - moderate - high VTE Device Contraindication: Treatment Not Indicated VTE Drug Contraindication: N/A - Med Ordered
--- NOTE | 2023-05-20 15:50 | MHC.CM.PN ---
IMM sent to pt.'s sister as pt. is legally blind and does not sign anything. Pt lives with her sister, Josy, who is her [employer]. She uses a wheelchair for mobility. Her brother Michael is her HCP [phone], copy is on file. Sister to transport home upon DC. CM to follow and assist with DC plan.
[2023-05-20 16:50] LABS: Glucose, Whole Blood 180 mg/dL (60-115)
[2023-05-20] MEDS: 0.9 % Sodium Chloride 500 ML IV ×2 (16:52→18:46)
[2023-05-20] MEDS: HYDROmorphone HCl 0.5 MG/0.5 ML SYRINGE 0.25 MG IVPUSH (20:46)
[2023-05-20 21:01] LABS: Glucose, Whole Blood 204 mg/dL (60-115)
[2023-05-20] MEDS: Insulin Lispro 100 UNIT/ML 3 ML VIAL SUBCUT (21:24)
--- NOTE | 2023-05-21 00:47 | PC.NURSE ---
Patient A/Ox4, refusing medications including antibiotics states those are making my blood pressure Low refused medications earlier today, previous shift. MD aware. Client only wants Dilaudid and insulin if needed.
[2023-05-21] MEDS: HYDROmorphone HCl 0.5 MG/0.5 ML SYRINGE 0.25 MG IVPUSH ×4 (02:01→21:31)
[2023-05-21 03:38] VITALS: BP 96/59; PULSE 70; RESP 18; TEMP 36.2; O2SAT 100
[2023-05-21 07:58] VITALS: BP 112/70; PULSE 69; RESP 16; TEMP 36.2; O2SAT 97
[2023-05-21 08:16] LABS: Glucose, Whole Blood 152 mg/dL (60-115)
[2023-05-21] MEDS: cloNIDine HCL 0.1 MG TABLET PO (08:54)
[2023-05-21] MEDS: 0.9 % Sodium Chloride Flush 3 ML SYRINGE IVFLUSH (09:00)
[2023-05-21] MEDS: Piperacillin Sodium/Tazobactam 2.25 GM in 0.9 % Sodium Chloride 50 ML IV ×2 (09:01→15:27)
[2023-05-21] MEDS: Doxycycline Hyclate 100 MG in 0.9 % Sodium Chloride 250 ML 166.67 MG IV (09:45)
[2023-05-21 11:20] VITALS: BP 98/51; PULSE 69; RESP 16; TEMP 36.6; O2SAT 98
[2023-05-21 11:34] LABS: Glucose, Whole Blood 219 mg/dL (60-115)
--- NOTE | 2023-05-21 12:17 | P.PNIM_ITS ---
Subjective Subjective Date of Service: 05/21/23 Interval History: possible foot cellulitis Review of Systems denies new c/o no fevers intermittent refuses po meds and labs-explained to her in detail need of med complance and labs . Physical Exam 2 Vital Signs: Vital Signs: Last Vital Signs Temp 97.9 F 05/21/23 11:20 Pulse 69 05/21/23 11:20 Resp 16 05/21/23 11:20 BP 98/51 L 05/21/23 11:20 Pulse Ox 98 05/21/23 11:20 O2 Del Method Room Air 05/21/23 11:20 O2 Flow Rate 3 05/21/23 03:38 Oxygen Flow Rate 3 05/19/23 13:44 BMI result Body Mass Index 29.8 Appearance: Alert.? Oriented X3.? cvs: rrr, [id number] . res: clear to auscultation ,no rhonchii or wheezing abd: no rebound or guarding ,nt, bs present. ext pulses present , no edema. foot skin-seems similar( look foot pics) neuro: axo3 , nonfocal. Objective Data Active Medications Acetaminophen (Acetaminophen 325 Mg Tablet) 650 mg PO Q6H PRN PRN Reason: Pain, Mild (Pain Scale 1-3) Aspirin (Aspirin Enteric Coated 81 Mg Tablet.) 81 mg PO DAILY [facility] Last Admin: 05/21/23 10:08 Dose: Not Given Documented By: LARRY Non-Admin Reason: Patient Refused Benzonatate (Benzonatate 100 Mg Capsule) 100 mg PO TID PRN PRN Reason: Cough Carvedilol (Carvedilol 12.5 Mg Tablet) 12.5 mg PO BID [facility]; Protocol Last Admin: 05/21/23 10:08 Dose: Not Given Documented By: LARRY Non-Admin Reason: Patient Refused Clonidine HCl (Clonidine Hcl 0.1 Mg Tablet) 0.1 mg PO BID [facility]; Protocol Last Admin: 05/21/23 08:54 Dose: 0.1 mg Documented By: LARRY Dextrose (Dextrose 50 % 25 Gm/50 Ml Syringe) 25 gm IVPUSH Q15M PRN; Protocol PRN Reason: per Hypoglycemia Standing Ord. Docusate Sodium (Docusate Sodium 100 Mg Capsule) 100 mg PO DAILY PRN PRN Reason: Constipation Glucose (Glucose Gel 15 Gm Gel..Gram.) 15 gm PO Q15M PRN; Protocol PRN Reason: per Hypoglycemia Standing Ord. Heparin Sodium (Porcine) (Heparin Sodium,Porcine 5,000 Unit/Ml Vial) 5,000 unit SUBCUT Q8H [facility] Last Admin: 05/21/23 10:09 Dose: Not Given Documented By: LARRY Non-Admin Reason: Patient Refused Hydralazine HCl (Hydralazine Hcl 50 Mg Tablet) 50 mg PO TID [facility]; Protocol Last Admin: 05/21/23 10:08 Dose: Not Given Documented By: LARRY Non-Admin Reason: Patient Refused Hydromorphone HCl (Hydromorphone Hcl 0.5 Mg/0.5 Ml Syringe) 0.25 mg IVPUSH Q4H PRN; Protocol PRN Reason: Pain, Severe (Pain Scale 7-10) Last Admin: 05/21/23 08:54 Dose: 0.25 mg Documented By: LARRY Doxycycline Hyclate 100 mg/ (Sodium Chloride) 250 mls @ 166.67 mls/hr IV Q12H [facility] Last Infusion: 05/21/23 11:15 Dose: Infused Documented By: LARRY Piperacillin Sod/Tazobactam (Sod 2.25 gm/ Sodium Chloride) 50 mls @ 100 mls/hr IV Q8H [facility] Last Infusion: 05/21/23 09:35 Dose: Infused Documented By: LARRY Insulin Human Lispro (Insulin Lispro 100 Unit/Ml 3 Ml Vial) 0 unit SUBCUT QIDACHS [facility]; Protocol Last Admin: 05/21/23 11:59 Dose: Not Given Documented By: LARRY Non-Admin Reason: Patient Refused Isosorbide Mononitrate (Isosorbide Mononitrate 30 Mg Tab.Er.24h) 30 mg PO DAILY [facility]; Protocol Last Admin: 05/21/23 10:08 Dose: Not Given Documented By: LARRY Non-Admin Reason: Patient Refused Lidocaine (Lidocaine 4 % Patch Adh..Patch) 1 patch TRANSDERMA DAILY [facility] Losartan Potassium (Losartan Potassium 50 Mg Tablet) 50 mg PO DAILY [facility]; Protocol Last Admin: 05/21/23 10:08 Dose: Not Given Documented By: LARRY Non-Admin Reason: Patient Refused Melatonin (Melatonin 3 Mg Tablet) 6 mg PO BEDTIME PRN PRN Reason: Insomnia Nifedipine (Nifedipine Er 60 Mg Tab.Er.24) 60 mg PO DAILY [facility]; Protocol Last Admin: 05/21/23 10:08 Dose: Not Given Documented By: LARRY Non-Admin Reason: Patient Refused Ondansetron HCl (Ondansetron Hcl 4 Mg/2 Ml Vial) 4 mg IVPUSH Q8H PRN PRN Reason: Nausea and Vomiting Last Admin: 05/19/23 20:49 Dose: 4 mg Documented By: PARAG Sodium Chloride (0.9 % Sodium Chloride Flush 3 Ml Syringe) 3 ml IVFLUSH QSHIFT [facility] Last Admin: 05/21/23 09:00 Dose: 3 ml Documented By: LARRY Torsemide (Torsemide 20 Mg Tablet) 40 mg PO BID@1200,1800 [facility]; Protocol Last Admin: 05/21/23 11:59 Dose: Not Given Documented By: LARRY Non-Admin Reason: Patient Refused Vitamin D (Cholecalciferol (Vitamin D3) 25 Mcg Tablet) 50 mcg PO DAILY [facility] Last Admin: 05/21/23 10:08 Dose: Not Given Documented By: LARRY Non-Admin Reason: Patient Refused Labs 05/19/23 14:56 05/20/23 06:08 Labs: Laboratory Results - last 24 hr 05/20/23 05/20/23 05/21/23 16:05 20:48 08:12 POC Glucose 180 H 204 H 152 H 05/21/23 11:23 POC Glucose 219 H Microbiology Microbiology Results: Microbiology 05/19/23 15:12 Blood Culture - Preliminary Blood - Venous No growth after 24 hours. 05/19/23 14:56 Blood Culture - Preliminary Blood - Venous No growth after 24 hours. 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 clelulitis in setting ch dm foot ulcers X-ray negative for osteomyelitis though showed soft tissue gas in both left and right foot; esr 70 ,crp1 blood cultures pending no fever or leucocytosis plan: continue iv doxycycline/zosyn Id eval. wound care eval ESRD on HD Marked improvement in divalent with hemodialysis -appreciate renal input. HD as per renal -will treat abdominal pain nausea and vomiting as per usual with IV analgesia and Zofran -replete potassium as per Nephrology Diabetes type 2: Noncompliance again the issue. Unclear if any medicines at home -lispro correctional scale -diabetic diet -adjust as indicated uncontrolled Hypertension Noncompliance with therapies. Per past admissions BP corrects when home therapies restarted blood pressure bodelrine today-hold bp meds (coreg,imdur ,hydralazine ,procardia,clonidine) for today and reintroduce slowly as well as adjust as indicated Full code Heparin ongoing hospitlisation need to facilitate adequate dialysis given noncompliance and also possible foot cellulitus with ch dm foot ulcers -need iv antibiotics ,renal function /electrolytes moniter as well as blood pressure monitering ,Id exper eval. Quality Stroke Does the patient have a stroke diagnosis?: No VTE Prior VTE?: No VTE Risk Level:: Medical - moderate - high VTE Device Contraindication: Treatment Not Indicated VTE Drug Contraindication: N/A - Med Ordered
--- NOTE | 2023-05-21 12:42 | P.PNNP_ITS ---
Subjective Subjective Date of Service: 05/21/23 Interval history: Seen and examined, events noted Physical Exam 2 Vital Signs: Vital Signs: Last Vital Signs Temp 97.9 F 05/21/23 11:20 Pulse 69 05/21/23 11:20 Resp 16 05/21/23 11:20 BP 98/51 L 05/21/23 11:20 Pulse Ox 98 05/21/23 11:20 O2 Del Method Room Air 05/21/23 11:20 O2 Flow Rate 3 05/21/23 03:38 Oxygen Flow Rate 3 05/19/23 13:44 BMI result Body Mass Index 29.8 Objective Data Labs 05/19/23 14:56 05/20/23 06:08 Labs: Laboratory Results - last 24 hr 05/20/23 05/20/23 05/21/23 16:05 20:48 08:12 POC Glucose 180 H 204 H 152 H 05/21/23 11:23 POC Glucose 219 H Microbiology Microbiology Results: Microbiology 05/19/23 15:12 Blood - Venous Blood Culture - Preliminary No growth after 24 hours. 05/19/23 14:56 Blood - Venous Blood Culture - Preliminary No growth after 24 hours. Procedures Date of Service Date of Service: 05/21/23 Assessment & Plan Assessment and plan (1) Renal failure: Status: Acute (2) Cellulitis: Status: Acute Plan ESRD: TTS Diabtic fooot infection HD non-compliance REC: cont HD 3x/wk--TTS; ABx as per ID Will follow wteam Time Spent With Patient Time: Total time managing care of this patient today ____ minutes. Progress Note: Quality Stroke Does the patient have a stroke diagnosis?: No
--- NOTE | 2023-05-21 13:16 | CONS_ITS ---
DATE OF SERVICE: 05/20/2023 REASON FOR CONSULTATION: I was asked to see patient to assist in evaluation and management of patient's dialysis needs. HISTORY OF PRESENT ILLNESS: In summary, the patient is a 32-year-old ESRD patient with history of noncompliance, missing many of her dialysis treatments, who presents to the hospital with worsening of her foot wounds. She normally dialyzes Sunday, , Sunday, but again misses her treatment quite frequently. She has history of diabetes, neuropathy, retinopathy, hypertension, and chronic foot ulcers. She is status post a right TMA. She presents to the hospital again with complaints of her feet hurting her and she also was noted to have increasing O2 requirements. She denies any chest pain, fever, sweats, or chills. In the emergency room, she was quite hypertensive. PAST MEDICAL HISTORY: As mentioned. MEDICATIONS: On admission noted in the admitting notes. ALLERGIES: SHE HAS MULTIPLE DRUG ALLERGIES, ALSO NOTED IN ELECTRONIC MEDICAL RECORD. FAMILY HISTORY: Notable for diabetes and heart disease. SOCIAL HISTORY: She is nonsmoker, nondrinker. No illicit drug use. REVIEW OF SYSTEMS: As noted above. PHYSICAL EXAMINATION: VITAL SIGNS: Blood pressure of 130/60 with a heart rate in the 70s. HEAD: Atraumatic and normocephalic. NECK: Supple. Mucous membranes are moist. LUNGS: Clear. CARDIAC: Regular rate and rhythm without rub. ABDOMEN: Soft. EXTREMITIES: Show wounds on both feet with wraps in place. LABORATORY DATA: Hemoglobin 9.1, hematocrit 28.7. Sodium 135, potassium 4.5, chloride 107, bicarb 21. IMPRESSION: END-STAGE RENAL DISEASE. PATIENT ADMITTED WITH PROGRESSIVE FOOT WOUNDS IN A DIABETIC, SEVERELY HYPERTENSIVE, AND MISSED DIALYSIS TREATMENTS. 1. End-stage renal disease with dialyzer today and then going back on Sunday, , Sunday schedule. 2. Diabetic foot wounds. Continue follow up with vascular and ID regarding antibiotics and possible need for additional surgery. 3. Dialysis noncompliance. Stressed to her the importance of coming to her dialysis treatment team. RECOMMENDATIONS: Include continue routine medications. We will schedule for dialysis today on the and then again on . Get back under Sunday, , Sunday schedule. We will follow with the team. MD ANGE Prasad/PAULINA / [phone]
--- NOTE | 2023-05-21 13:50 | MHC.CLN ---
NUTRITION PATIENT WITH DX DIABETES AND ESRD ON HEMODIALYSIS. ADDED DM 1800 KCALS TO DIET ORDER. DIET=DIABETIC 1800 KCALS, 2 GRAM SODIUM, LOW POTASSIUM, LOW PHOSPHORUS.
[2023-05-21 15:10] VITALS: BP 118/74; PULSE 72; RESP 20; TEMP 36.6; O2SAT 98
--- NOTE | 2023-05-21 15:26 | MHC.CM.PN ---
EMR reviewed and per MD rounds, pt is not medically cleared for D/C due to management of diabetic foot ulcer, and renal function.
--- NOTE | 2023-05-21 16:01 | HO.WOUND ---
Wound Consult: Initial 32yr old female admitted to [facility] on?05/19/23 - See progress notes and H&P for detailed history. Wound consult placed for Chronic Left and Right Plantar Wound - present on admission. Recent admissions to [facility] - see chart for details. Left Plantar Foot Etiology: Diabetic Foot wound Wound Bed: dry marbled wound bed with adherent yellow green slough pink tissue noted Drainage / Odor: no odor noted - no drainage noted - Alginate stuck to wound bed Edges: ? callused Pao wound: Calloused and undermining noted No Induration, No Fluctuance, No Erythema, No Warmth Pain: Denies reports neuropathy Goals of Treatment: Durafiber AG packing - defer to Dr. Arias and Surgery for evaluation of debridement Right Foot Etiology: Diabetic Foot wound Wound Bed: pale pink - tissue after cleansing Drainage / Odor: no odor noted - dried drainage noted on dressing adherent to wound bed Edges: ? callused Pao wound: Calloused and undermining noted - No Induration, No Fluctuance, No Erythema, No Warmth Pain: Denies reports neuropathy Goals of Treatment: ? Durafiber AG packing - defer to Dr. Arias and Surgery for evaluation of debridement Recommendations: 1. Turn and Reposition every 2 hours and as needed for patient comfort. 2. Off Load all bony prominences with use of pillows and heel boots as needed. 3. Provide adequate and supplemental nutrition. 4. Maintain blood glucose levels per Providers orders. 5. Bilateral Feet - Cleanse and irrigate with NS, Pat dry. Apply cut to size Durafiber AG to wound bed , cover with dry gauze, ABD pad and gauze wrap. Change every other day. Off Load Pressure.
[2023-05-21 20:02] VITALS: BP 169/88; PULSE 95; RESP 20; TEMP 36.4; O2SAT 99
[2023-05-21 23:32] VITALS: BP 136/79; PULSE 73; RESP 20; TEMP 36.2; O2SAT 97
[2023-05-22] MEDS: 0.9 % Sodium Chloride Flush 3 ML SYRINGE IVFLUSH ×3 (00:02→21:26)
[2023-05-22 03:04] VITALS: BP 161/97; PULSE 80; RESP 20; TEMP 36.4; O2SAT 98
[2023-05-22] MEDS: HYDROmorphone HCl 0.5 MG/0.5 ML SYRINGE 0.25 MG IVPUSH ×5 (03:12→21:25)
[2023-05-22] MEDS: Piperacillin Sodium/Tazobactam 2.25 GM in 0.9 % Sodium Chloride 50 ML IV (03:15)
[2023-05-22 07:06] VITALS: BP 153/82; PULSE 75; RESP 18; TEMP 36.1; O2SAT 96
[2023-05-22 08:14] LABS: Glucose, Whole Blood 136 mg/dL (60-115)
[2023-05-22] MEDS: cloNIDine HCL 0.1 MG TABLET PO ×2 (08:36→21:25)
[2023-05-22] MEDS: Doxycycline Hyclate 100 MG in 0.9 % Sodium Chloride 250 ML 166.67 MG IV (08:36)
--- NOTE | 2023-05-22 10:17 | MHC.CM.PN ---
Per MD rounds no discharge today. DP Home with resumption of HD and [employer] services.
--- NOTE | 2023-05-22 10:21 | PM.CNGS ---
History of Present Illness Consult details Consult date: 05/22/23 Reason for consult: wound care Narrative: Very complex noncompliant 32-year-old female presents for evaluation regarding nonhealing lower extremity ulcers. She is dialysis dependent and on a Sunday cycle but typically does not go to dialysis on Sunday. Has been poorly controlled in terms of her diabetes although the last hemoglobin A1c does appear improved. She presented to the hospital with chronic nonhealing ulcers that seem to be getting worse. She now presents to us for vascular evaluation. Review of Systems Review of Systems: Yes all other systems are reviewed and are negative Constitutional: Constitutional: Reports no additional constitutional complaints ENT: Reports Normal hearing present Cardiovascular: Cardiovascular: Denies chest pain, Denies chest pain at rest, Denies chest pain with activity and Denies pedal edema Respiratory: Respiratory: Denies cough Gastrointestinal: Gastrointestinal: Denies abdominal pain Musculoskeletal: Musculoskeletal: Denies abnormal gait, Denies muscle cramps and Denies radiating pain into limb Integumentary/Breasts: Skin/Breast: Denies skin ulcer and Denies wounds Neurologic: Reports Normal hearing present and Denies abnormal gait Psychiatric: Psychiatric: Reports no additional psychiatric complaints PMF Past Medical History Medical History Hypertension End-stage renal disease (ESRD) Foot ulcer CKD (chronic kidney disease) Hypertension Anemia Diabetic foot Vomiting Renal failure Hypertension Hyperkalemia Metabolic acidosis HFrEF (heart failure with reduced ejection fraction) ESRD on dialysis Migraine Diabetic foot ulcer associated with type 2 diabetes mellitus Chronic pain Gastroparesis Non-compliance with renal dialysis Hypertensive emergency Diabetes ESRD needing dialysis Cardiomyopathy delivery delivered Anemia in chronic kidney disease (CKD) CKD (chronic kidney disease) Headache, migraine Abnormal finding on echocardiogram Elevated troponin Chest pain Acute worsening of stage 3 chronic kidney disease Generalized edema Sepsis Cellulitis Pleural effusion CHF (congestive heart failure) (~06/07/22) Tachycardia Atypical chest pain Bone infection PAD (peripheral artery disease) Severe anemia Cellulitis and abscess of foot DM foot ulcer Osteomyelitis test positive test positive Asthma Depression with anxiety Diabetic retinopathy Type 2 diabetes mellitus with hyperglycemia, with long-term current use of insulin Blind right eye Diabetes Back pain Family History Family History Mother Coronary artery disease Myocardial infarction Stroke Diabetes mellitus Father Myocardial infarction Surgical History Surgical History 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 Social History Social History Household Members: Family Household Members Other:: Sister, [id number], nephew Housing: Apartment Do you presently have visiting nurse or other home services: No Unable to assess alcohol history related to: Unknown Alcohol intake: never Comment: refuses camera Patient Tobacco Use Status: Never used Tobacco Smoked in Last 30 Days: No e-Cigarette/Vaping Use: Never Used Second Hand Smoke Exposure: No Use of substances other than those prescribed or required for medical reasons: No Currently Displaying Signs/Symptoms of Drug Intoxication Withdrawal: No Have you been hit, kicked, punched, or otherwise hurt by someone within the past year? If so, by whom?: No Do you feel safe in your current relationship?: Yes Is there a partner from a previous relationship who is making you feel unsafe now?: No Are you made to feel afraid or neglected: No Advance Directives: Yes Advance Directives on File: Yes Advance Directives Date on File: 03/08/20 Do you have thoughts of harming others: None Do you have a plan to hurt others: No Plan Recently lost weight without trying: Unsure Eating poorly because of decreased appetite: No Nutrition Risks: Binging/Purging Patient : No : No Poor oral hygiene: No service: No Current occupational status: unemployed and disabled Gender identity: Female Meds Allergies Allergy/AdvReac Type Severity Reaction Status Date / Time morphine [MORPHINE] Allergy Intermediate Itching Verified 03/24/23 16:53 azithromycin [From Zithromax] Allergy Hives Verified 03/24/23 16:53 gabapentin Allergy Facial Verified 03/24/23 16:53 Swelling tramadol Allergy Facial Verified 03/24/23 16:53 Swelling vancomycin Allergy Anaphylaxis Verified 04/02/23 15:01 Active Medications: Current Medications Acetaminophen (Acetaminophen 325 Mg Tablet) 650 mg PO Q6H PRN PRN Reason: Pain, Mild (Pain Scale 1-3) Aspirin (Aspirin Enteric Coated 81 Mg Tablet.Dr) 81 mg PO DAILY [facility] Last Admin: 05/21/23 10:08 Dose: Not Given Benzonatate (Benzonatate 100 Mg Capsule) 100 mg PO TID PRN PRN Reason: Cough Carvedilol (Carvedilol 12.5 Mg Tablet) 12.5 mg PO BID [facility]; Protocol Last Admin: 05/21/23 22:28 Dose: Not Given Clonidine HCl (Clonidine Hcl 0.1 Mg Tablet) 0.1 mg PO BID [facility]; Protocol Last Admin: 05/22/23 08:36 Dose: 0.1 mg Dextrose (Dextrose 50 % 25 Gm/50 Ml Syringe) 25 gm IVPUSH Q15M PRN; Protocol PRN Reason: per Hypoglycemia Standing Ord. Docusate Sodium (Docusate Sodium 100 Mg Capsule) 100 mg PO DAILY PRN PRN Reason: Constipation Glucose (Glucose Gel 15 Gm Gel..Gram.) 15 gm PO Q15M PRN; Protocol PRN Reason: per Hypoglycemia Standing Ord. Heparin Sodium (Porcine) (Heparin Sodium,Porcine 5,000 Unit/Ml Vial) 5,000 unit SUBCUT Q8H [facility] Last Admin: 05/22/23 03:14 Dose: Not Given Hydralazine HCl (Hydralazine Hcl 50 Mg Tablet) 50 mg PO TID [facility]; Protocol Last Admin: 05/21/23 23:58 Dose: Not Given Hydromorphone HCl (Hydromorphone Hcl 0.5 Mg/0.5 Ml Syringe) 0.25 mg IVPUSH Q4H PRN; Protocol PRN Reason: Pain, Severe (Pain Scale 7-10) Last Admin: 05/22/23 08:35 Dose: 0.25 mg Doxycycline Hyclate 100 mg/ (Sodium Chloride) 250 mls @ 166.67 mls/hr IV Q12H [facility] Last Infusion: 05/22/23 08:40 Dose: 0 mls/hr Piperacillin Sod/Tazobactam (Sod 2.25 gm/ Sodium Chloride) 50 mls @ 100 mls/hr IV Q8H [facility] Last Infusion: 05/22/23 07:20 Dose: Infused Insulin Human Lispro (Insulin Lispro 100 Unit/Ml 3 Ml Vial) 0 unit SUBCUT QIDACHS [facility]; Protocol Last Admin: 05/22/23 07:36 Dose: Not Given Isosorbide Mononitrate (Isosorbide Mononitrate 30 Mg Tab.Er.24h) 30 mg PO DAILY [facility]; Protocol Last Admin: 05/21/23 10:08 Dose: Not Given Lidocaine (Lidocaine 4 % Patch Adh..Patch) 1 patch TRANSDERMA DAILY [facility] Losartan Potassium (Losartan Potassium 50 Mg Tablet) 50 mg PO DAILY [facility]; Protocol Last Admin: 05/21/23 10:08 Dose: Not Given Melatonin (Melatonin 3 Mg Tablet) 6 mg PO BEDTIME PRN PRN Reason: Insomnia Nifedipine (Nifedipine Er 60 Mg Tab.Er.24) 60 mg PO DAILY [facility]; Protocol Last Admin: 05/21/23 10:08 Dose: Not Given Ondansetron HCl (Ondansetron Hcl 4 Mg/2 Ml Vial) 4 mg IVPUSH Q8H PRN PRN Reason: Nausea and Vomiting Last Admin: 05/19/23 20:49 Dose: 4 mg Sodium Chloride (0.9 % Sodium Chloride Flush 3 Ml Syringe) [facility] Last Admin: 05/22/23 08:38 Dose: 3 ml Torsemide (Torsemide 20 Mg Tablet) 40 mg PO BID@1200,1800 [facility]; Protocol Last Admin: 05/21/23 18:19 Dose: Not Given Vitamin D (Cholecalciferol (Vitamin D3) 25 Mcg Tablet) 50 mcg PO DAILY [facility] Last Admin: 05/21/23 10:08 Dose: Not Given Home Medications Medication Instructions Recorded Confirmed Last Taken Type isosorbide mononitrate 30 mg 30 mg PO DAILY 03/11/23 05/19/23 03/20/23 History tablet,extended release 24 hr lidocaine 5 % topical patch 1 patch topical DAILY 03/11/23 05/19/23 03/20/23 History nifedipine 60 mg tablet,extended 60 mg PO DAILY 03/11/23 05/19/23 03/20/23 History release 24 hr oxycodone 5 mg tablet 5 mg PO Q6H PRN severe pain 03/11/23 05/19/23 03/20/23 History acetaminophen 325 mg tablet 650 mg PO Q4H PRN mild pain 03/20/23 05/19/23 Unknown History cholecalciferol (vitamin D3) 50 50 mcg PO DAILY 03/20/23 05/19/23 Unknown History mcg (2,000 unit) capsule carvedilol 25 mg tablet 12.5 mg PO BID 05/19/23 05/19/23 Unknown History docusate sodium 100 mg capsule 100 mg PO DAILY PRN constipation 05/19/23 05/19/23 Unknown History torsemide 20 mg tablet 40 mg PO BID@1200,1800 05/19/23 05/19/23 Unknown History Physical Exam Vital Signs: Vital Signs: Last Vital Signs Temp 97.0 F 05/22/23 07:06 Pulse 75 05/22/23 07:06 Resp 18 05/22/23 07:06 BP 153/82 H 05/22/23 07:06 Pulse Ox 96 05/22/23 07:06 O2 Del Method Room Air 05/22/23 07:06 O2 Flow Rate 3 05/21/23 03:38 Oxygen Flow Rate 3 05/19/23 13:44 BMI result Body Mass Index 29.8 Const: General: cooperative, healthy appearing and comfortable Orientation/consciousness: oriented to person, oriented to place and oriented to time HEENT: Head: Yes normal to inspection Neck: Neck: Yes normal visual inspection Carotids: no bruits Chest: Chest palpation & inspection: normal inspection of the chest Resp: Effort & Inspection: normal respiratory effort and able to speak in complete sentences Auscultation: clear to auscultation bilaterally, no crackles, no rales, no rhonchi and no wheezes Cardio: Rate: regular rate Rhythm: regular rhythm Heart sounds: S1 normal heart sound present and S2 normal heart sound present Bruits: no carotid bruits Peripheral pulses: Peripheral pulses 2+ throughout GI: Inspection: Yes normal to inspection Skin: Other: Left plantar foot ulceration dry with eschar, right side trans met appears to be heal but does have a plantar ulceration there as well. Wounds: no wounds Hair: normal Neuro: General: oriented to person, oriented to place and oriented to time Cranial nerves: Yes CN's II-XII intact bilaterally and Yes Normal hearing present Cognition (Neuro): normal cognition Motor exam (neuro): 5/5 motor strength present throughout Extrem: Other: venous exam: No significant superficial varicosities or spider telangiectasias, minimal edema General: No clubbing, No cyanosis and No edema Psych: Appearance: grossly normal Mental Status: mental status grossly normal Speech and movement: Normal speech and movement present Results Labs 05/19/23 14:56 05/20/23 06:08 Labs: Abnormal lab results 05/21/23 05/22/23 Range/Units 11:23 08:11 POC Glucose 219 H 136 H (60-115) mg/dL All other labs normal. Assessment and Plan (1) Chronic ulcer of left foot due to diabetes mellitus: Status: Acute Plan In short patient has chronic nonhealing wounds. Unfortunately she is extremely noncompliant and would not recommend any sort of acute intervention on her. She is actually scheduled for a CTA runoff as an outpatient with us. She also has follow-up scheduled with us as well. At the current time would not recommend any acute interventions. Antibiotics as required per medical team. Stable from my perspective for discharge. Follow up with us as an outpatient.. Procedures Date of Service Date of Service: 05/22/23
[2023-05-22 12:34] LABS: Glucose, Whole Blood 126 mg/dL (60-115)
[2023-05-22 12:44] VITALS: BP 208/102; PULSE 81; RESP 18; TEMP 36.1; O2SAT 99
--- NOTE | 2023-05-22 15:13 | W.PM.IDCN ---
History of Present Illness Data of Consult Service Date: 05/21/23 Requesting physician: Gildardo Bess Primary Care Provider: Abdon Beard MD HPI Reason for consult: bilateral foot discomfort,wounds She presents last two days wosening foot pain and odor., She has no fever or chills. She also missed dialysis. XR no OM She sees Dr Arias. She has reported anaphylaxis to Vancomycin. Review of Systems Review of Systems: Yes all other systems are reviewed and are negative PMFSH Past Medical History Medical History Hypertension End-stage renal disease (ESRD) Foot ulcer CKD (chronic kidney disease) Hypertension Anemia Diabetic foot Vomiting Renal failure Hypertension Hyperkalemia Metabolic acidosis HFrEF (heart failure with reduced ejection fraction) ESRD on dialysis Migraine Diabetic foot ulcer associated with type 2 diabetes mellitus Chronic pain Gastroparesis Non-compliance with renal dialysis Hypertensive emergency Diabetes ESRD needing dialysis Cardiomyopathy delivery delivered Anemia in chronic kidney disease (CKD) CKD (chronic kidney disease) Headache, migraine Abnormal finding on echocardiogram Elevated troponin Chest pain Acute worsening of stage 3 chronic kidney disease Generalized edema Sepsis Cellulitis Pleural effusion CHF (congestive heart failure) (~06/07/22) Tachycardia Atypical chest pain Bone infection PAD (peripheral artery disease) Severe anemia Cellulitis and abscess of foot DM foot ulcer Osteomyelitis test positive test positive Asthma Depression with anxiety Diabetic retinopathy Type 2 diabetes mellitus with hyperglycemia, with long-term current use of insulin Blind right eye Diabetes Back pain Family History Family History Mother Coronary artery disease Myocardial infarction Stroke Diabetes mellitus Father Myocardial infarction Family history: reviewed and not pertinent Surgical History Surgical History 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 Social History Social History Household Members: Family Household Members Other:: Sister, [id number], nephew Housing: Apartment Do you presently have visiting nurse or other home services: No Unable to assess alcohol history related to: Unknown Alcohol intake: never Comment: refuses camera Patient Tobacco Use Status: Never used Tobacco Smoked in Last 30 Days: No e-Cigarette/Vaping Use: Never Used Second Hand Smoke Exposure: No Use of substances other than those prescribed or required for medical reasons: No Currently Displaying Signs/Symptoms of Drug Intoxication Withdrawal: No Have you been hit, kicked, punched, or otherwise hurt by someone within the past year? If so, by whom?: No Do you feel safe in your current relationship?: Yes Is there a partner from a previous relationship who is making you feel unsafe now?: No Are you made to feel afraid or neglected: No Advance Directives: Yes Advance Directives on File: Yes Advance Directives Date on File: 03/08/20 Do you have thoughts of harming others: None Do you have a plan to hurt others: No Plan Recently lost weight without trying: Unsure Eating poorly because of decreased appetite: No Nutrition Risks: Binging/Purging Patient : No : No Poor oral hygiene: No service: No Current occupational status: unemployed and disabled Gender identity: Female Meds Allergies Allergy/AdvReac Type Severity Reaction Status Date / Time morphine [MORPHINE] Allergy Intermediate Itching Verified 03/24/23 16:53 azithromycin [From Zithromax] Allergy Hives Verified 03/24/23 16:53 gabapentin Allergy Facial Verified 03/24/23 16:53 Swelling tramadol Allergy Facial Verified 03/24/23 16:53 Swelling vancomycin Allergy Anaphylaxis Verified 04/02/23 15:01 Active Medications: Current Medications Acetaminophen (Acetaminophen 325 Mg Tablet) 650 mg PO Q6H PRN PRN Reason: Pain, Mild (Pain Scale 1-3) Aspirin (Aspirin Enteric Coated 81 Mg Tablet.Dr) 81 mg PO DAILY [facility] Last Admin: 05/22/23 12:31 Dose: Not Given Benzonatate (Benzonatate 100 Mg Capsule) 100 mg PO TID PRN PRN Reason: Cough Carvedilol (Carvedilol 12.5 Mg Tablet) 12.5 mg PO BID [facility] [place]; Protocol Last Admin: 05/22/23 12:33 Dose: Not Given Clonidine HCl (Clonidine Hcl 0.1 Mg Tablet) 0.1 mg PO BID [facility] [place]; Protocol Last Admin: 05/22/23 08:36 Dose: 0.1 mg Dextrose (Dextrose 50 % 25 Gm/50 Ml Syringe) 25 gm IVPUSH Q15M PRN; Protocol PRN Reason: per Hypoglycemia Standing Ord. Docusate Sodium (Docusate Sodium 100 Mg Capsule) 100 mg PO DAILY PRN PRN Reason: Constipation Glucose (Glucose Gel 15 Gm Gel..Gram.) 15 gm PO Q15M PRN; Protocol PRN Reason: per Hypoglycemia Standing Ord. Heparin Sodium (Porcine) (Heparin Sodium,Porcine 5,000 Unit/Ml Vial) 5,000 unit SUBCUT Q8H [facility] [place] Last Admin: 05/22/23 12:31 Dose: Not Given Hydralazine HCl (Hydralazine Hcl 50 Mg Tablet) 50 mg PO TID [facility] [place]; Protocol Last Admin: 05/22/23 12:33 Dose: Not Given Hydromorphone HCl (Hydromorphone Hcl 0.5 Mg/0.5 Ml Syringe) 0.25 mg IVPUSH Q4H PRN; Protocol PRN Reason: Pain, Severe (Pain Scale 7-10) Last Admin: 05/22/23 13:07 Dose: 0.25 mg Doxycycline Hyclate 100 mg/ (Sodium Chloride) 250 mls @ 166.67 mls/hr IV Q12H [facility] [place] Last Infusion: 05/22/23 12:31 Dose: Infused Piperacillin Sod/Tazobactam (Sod 2.25 gm/ Sodium Chloride) 50 mls @ 100 mls/hr IV Q8H [facility] [place] Last Admin: 05/22/23 12:30 Dose: Not Given Insulin Human Lispro (Insulin Lispro 100 Unit/Ml 3 Ml Vial) 0 unit SUBCUT QIDACHS [facility] [place]; Protocol Last Admin: 05/22/23 12:32 Dose: Not Given Isosorbide Mononitrate (Isosorbide Mononitrate 30 Mg Tab.Er.24h) 30 mg PO DAILY [facility] [place]; Protocol Last Admin: 05/22/23 12:33 Dose: Not Given Lidocaine (Lidocaine 4 % Patch Adh..Patch) 1 patch TRANSDERMA DAILY [facility] [place] Last Admin: 05/22/23 12:32 Dose: Not Given Losartan Potassium (Losartan Potassium 50 Mg Tablet) 50 mg PO DAILY [facility] [place]; Protocol Last Admin: 05/22/23 12:32 Dose: Not Given Melatonin (Melatonin 3 Mg Tablet) 6 mg PO BEDTIME PRN PRN Reason: Insomnia Nifedipine (Nifedipine Er 60 Mg Tab.Er.24) 60 mg PO DAILY [facility] [place]; Protocol Last Admin: 05/22/23 12:32 Dose: Not Given Ondansetron HCl (Ondansetron Hcl 4 Mg/2 Ml Vial) 4 mg IVPUSH Q8H PRN PRN Reason: Nausea and Vomiting Last Admin: 05/19/23 20:49 Dose: 4 mg Sodium Chloride (0.9 % Sodium Chloride Flush 3 Ml Syringe) 3 ml IVFLUSH QSHIFT [facility] [place] Last Admin: 05/22/23 08:38 Dose: 3 ml Torsemide (Torsemide 20 Mg Tablet) 40 mg PO BID@1200,1800 [facility] [place]; Protocol Last Admin: 05/22/23 12:33 Dose: Not Given Vitamin D (Cholecalciferol (Vitamin D3) 25 Mcg Tablet) 50 mcg PO DAILY [facility] [place] Last Admin: 05/22/23 12:33 Dose: Not Given Home Medications Medication Instructions Recorded Confirmed Last Taken Type isosorbide mononitrate 30 mg 30 mg PO DAILY 03/11/23 05/19/23 03/20/23 History tablet,extended release 24 hr lidocaine 5 % topical patch 1 patch topical DAILY 03/11/23 05/19/23 03/20/23 History nifedipine 60 mg tablet,extended 60 mg PO DAILY 03/11/23 05/19/23 03/20/23 History release 24 hr oxycodone 5 mg tablet 5 mg PO Q6H PRN severe pain 03/11/23 05/19/23 03/20/23 History acetaminophen 325 mg tablet 650 mg PO Q4H PRN mild pain 03/20/23 05/19/23 Unknown History cholecalciferol (vitamin D3) 50 50 mcg PO DAILY 03/20/23 05/19/23 Unknown History mcg (2,000 unit) capsule carvedilol 25 mg tablet 12.5 mg PO BID 05/19/23 05/19/23 Unknown History docusate sodium 100 mg capsule 100 mg PO DAILY PRN constipation 05/19/23 05/19/23 Unknown History torsemide 20 mg tablet 40 mg PO BID@1200,1800 05/19/23 05/19/23 Unknown History Physical Exam Vital Signs: Vital Signs: Last Vital Signs Temp 97.0 F 05/22/23 12:44 Pulse 81 05/22/23 12:44 Resp 18 05/22/23 12:44 BP 208/102 H 05/22/23 12:44 Pulse Ox 99 05/22/23 12:44 O2 Del Method Room Air 05/22/23 12:44 O2 Flow Rate 3 05/21/23 03:38 Oxygen Flow Rate 3 05/19/23 13:44 BMI result Body Mass Index 29.8 Const: General: cooperative HEENT: Head: Yes normal to inspection Face and sinus: Yes normal facial exam Mouth: Normal oral and palatal mucosa present Teeth and gingiva: dentition normal Eyes: General: appearance normal, both eyes and all related structures Pupils: Equal, round and reactive pupils present Resp: Effort & Inspection: normal respiratory effort Cardio: Rate: regular rate Rhythm: regular rhythm GI: Palpation (GI): Soft to palpation and nontender : General: Yes no CVA tenderness Back/Spine/Pelvis: Back: no CVA tenderness Skin: General skin exam: no rashes or lesions noted Neuro: General: moves all extremities Cranial nerves: Yes Equal, round and reactive pupils present Extrem: Other: bilateral feet chronic wounds Psych: Appearance: grossly normal Results Labs 05/19/23 14:56 05/20/23 06:08 Microbiology Microbiology Results: Microbiology 05/19/23 15:12 Blood - Venous Blood Culture - Preliminary No growth after 48 hours. 05/19/23 14:56 Blood - Venous Blood Culture - Preliminary No growth after 48 hours. Assessment and Plan (1) Cellulitis: Status: Acute (2) End-stage renal disease (ESRD): Status: Acute Plan She has chronic foot wounds She has allergy to Vancomycin. There is possible OM Would get MRI bilateral feet if able or could just give Kefzol 2 g with every dialysis and po Doxycycline 100 mg bid for six weeks. Prognosis guarded.
[2023-05-22 15:15] VITALS: BP 180/90; PULSE 88; RESP 18; TEMP 36.2; O2SAT 95
--- NOTE | 2023-05-22 16:38 | HO.PM.IMPN ---
Subjective Subjective Date of Service: 05/22/23 Interval History: Continues with similar presentation to past admission; nauseous and noncompliant with therapies. Review of Systems Denies chest pain Denies shortness of breath Admits nausea/vomiting denies diarrhea Denies fever chills Physical Exam Vital Signs: Vital Signs: Last Vital Signs Temp 97.1 F 05/22/23 15:15 Pulse 88 05/22/23 15:15 Resp 18 05/22/23 15:15 BP 180/90 H 05/22/23 15:15 Pulse Ox 95 05/22/23 15:15 O2 Del Method Room Air 05/22/23 15:15 O2 Flow Rate 3 05/21/23 03:38 Oxygen Flow Rate 3 05/19/23 13:44 BMI result Body Mass Index 29.8 Objective Data Active Medications Acetaminophen (Acetaminophen 325 Mg Tablet) 650 mg PO Q6H PRN PRN Reason: Pain, Mild (Pain Scale 1-3) Aspirin (Aspirin Enteric Coated 81 Mg Tablet.Dr) 81 mg PO DAILY [facility] Last Admin: 05/22/23 12:31 Dose: Not Given Documented By: LARRY Non-Admin Reason: Patient Refused Benzonatate (Benzonatate 100 Mg Capsule) 100 mg PO TID PRN PRN Reason: Cough Carvedilol (Carvedilol 12.5 Mg Tablet) 12.5 mg PO BID [facility]; Protocol Last Admin: 05/22/23 12:33 Dose: Not Given Documented By: LARRY Non-Admin Reason: Patient Refused Clonidine HCl (Clonidine Hcl 0.1 Mg Tablet) 0.1 mg PO BID [facility]; Protocol Last Admin: 05/22/23 08:36 Dose: 0.1 mg Documented By: LARRY Dextrose (Dextrose 50 % 25 Gm/50 Ml Syringe) 25 gm IVPUSH Q15M PRN; Protocol PRN Reason: per Hypoglycemia Standing Ord. Docusate Sodium (Docusate Sodium 100 Mg Capsule) 100 mg PO DAILY PRN PRN Reason: Constipation Glucose (Glucose Gel 15 Gm Gel..Gram.) 15 gm PO Q15M PRN; Protocol PRN Reason: per Hypoglycemia Standing Ord. Heparin Sodium (Porcine) (Heparin Sodium,Porcine 5,000 Unit/Ml Vial) 5,000 unit SUBCUT Q8H [facility] Last Admin: 05/22/23 16:27 Dose: Not Given Documented By: BRENDA Non-Admin Reason: Patient Refused Hydralazine HCl (Hydralazine Hcl 50 Mg Tablet) 50 mg PO TID [facility]; Protocol Last Admin: 05/22/23 16:29 Dose: Not Given Documented By: BRENDA Non-Admin Reason: Patient Refused Hydromorphone HCl (Hydromorphone Hcl 0.5 Mg/0.5 Ml Syringe) 0.25 mg IVPUSH Q4H PRN; Protocol PRN Reason: Pain, Severe (Pain Scale 7-10) Last Admin: 05/22/23 13:07 Dose: 0.25 mg Documented By: LARRY Doxycycline Hyclate 100 mg/ (Sodium Chloride) 250 mls @ 166.67 mls/hr IV Q12H [facility] Last Infusion: 05/22/23 12:31 Dose: Infused Documented By: LARRY Piperacillin Sod/Tazobactam (Sod 2.25 gm/ Sodium Chloride) 50 mls @ 100 mls/hr IV Q8H [facility] Last Admin: 05/22/23 12:30 Dose: Not Given Documented By: LARRY Non-Admin Reason: Patient Refused Insulin Human Lispro (Insulin Lispro 100 Unit/Ml 3 Ml Vial) 0 unit SUBCUT QIDACHS [facility]; Protocol Last Admin: 05/22/23 16:27 Dose: Not Given Documented By: BRENDA Non-Admin Reason: Patient Refused Isosorbide Mononitrate (Isosorbide Mononitrate 30 Mg Tab.Er.24h) 30 mg PO DAILY [facility]; Protocol Last Admin: 05/22/23 12:33 Dose: Not Given Documented By: LARRY Non-Admin Reason: Patient Refused Lidocaine (Lidocaine 4 % Patch Adh..Patch) 1 patch TRANSDERMA DAILY [facility] Last Admin: 05/22/23 12:32 Dose: Not Given Documented By: LARRY Non-Admin Reason: Patient Refused Losartan Potassium (Losartan Potassium 50 Mg Tablet) 50 mg PO DAILY [facility]; Protocol Last Admin: 05/22/23 12:32 Dose: Not Given Documented By: LARRY Non-Admin Reason: Patient Refused Melatonin (Melatonin 3 Mg Tablet) 6 mg PO BEDTIME PRN PRN Reason: Insomnia Nifedipine (Nifedipine Er 60 Mg Tab.Er.24) 60 mg PO DAILY [facility]; Protocol Last Admin: 05/22/23 12:32 Dose: Not Given Documented By: LARRY Non-Admin Reason: Patient Refused Ondansetron HCl (Ondansetron Hcl 4 Mg/2 Ml Vial) 4 mg IVPUSH Q8H PRN PRN Reason: Nausea and Vomiting Last Admin: 05/19/23 20:49 Dose: 4 mg Documented By: PARAG Sodium Chloride (0.9 % Sodium Chloride Flush 3 Ml Syringe) 3 ml IVFLUSH QSHIFT [facility] Last Admin: 05/22/23 16:29 Dose: Not Given Documented By: BRENDA Non-Admin Reason: Patient Refused Torsemide (Torsemide 20 Mg Tablet) 40 mg PO BID@1200,1800 [facility]; Protocol Last Admin: 05/22/23 12:33 Dose: Not Given Documented By: LARRY Non-Admin Reason: Patient Refused Vitamin D (Cholecalciferol (Vitamin D3) 25 Mcg Tablet) 50 mcg PO DAILY [facility] Last Admin: 05/22/23 12:33 Dose: Not Given Documented By: LARRY Non-Admin Reason: Patient Refused Labs 05/19/23 14:56 05/20/23 06:08 Labs: Laboratory Results - last 24 hr 05/22/23 05/22/23 08:11 12:30 POC Glucose 136 H 126 H Microbiology Microbiology Results: Microbiology 05/19/23 15:12 Blood Culture - Preliminary Blood - Venous No growth after 48 hours. 05/19/23 14:56 Blood Culture - Preliminary Blood - Venous No growth after 48 hours. 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 Continue IV doxycycline as ordered -wound care eval pending 2.ESRD on HD -markedly improved with hemodialysis -follow renals/divalents -replete as indicatyed 3.Diabetes type 2: Noncompliance again the issue. Unclear if any medicines at home -lispro correctional scale -diabetic diet -adjust as indicated 4.Uncontrolled Hypertension -poorly controlled -restart home therapies and follow -adjust as indicated Full code Heparin ongoing hospitlisation need to facilitate adequate dialysis given noncompliance and also possible foot cellulitus with ch dm foot ulcers -need iv antibiotics ,renal function /electrolytes moniter as well as blood pressure monitering ,Id exper eval. Quality Stroke Does the patient have a stroke diagnosis?: No VTE Prior VTE?: No VTE Risk Level:: Medical - moderate - high VTE Device Contraindication: Treatment Not Indicated VTE Drug Contraindication: N/A - Med Ordered
--- NOTE | 2023-05-22 19:06 | P.PNNP_ITS ---
Subjective Subjective Date of Service: 05/22/23 Interval history: Seen and examined,e vents noted Physical Exam 2 Vital Signs: Vital Signs: Last Vital Signs Temp 97.1 F 05/22/23 15:15 Pulse 88 05/22/23 15:15 Resp 18 05/22/23 15:15 BP 180/90 H 05/22/23 15:15 Pulse Ox 95 05/22/23 15:15 O2 Del Method Room Air 05/22/23 15:15 O2 Flow Rate 3 05/21/23 03:38 Oxygen Flow Rate 3 05/19/23 13:44 BMI result Body Mass Index 29.8 Const: General: cooperative, healthy appearing, comfortable, no acute distress, alert and awake Nutritional Appearance: well nourished O rientation/consciousness: oriented to person, oriented to place, oriented to time and patient oriented x3 Limitations: no limitations HEENT: Head: Yes normal to inspection and Yes atraumatic Ears: hearing grossly normal bilaterally and external ears normal General nose exam: Normal external nose present, no nasal discharge noted and no epistaxis Face and sinus: Yes normal facial exam, No abrasion and No laceration Mouth: Normal oral and palatal mucosa present, no drooling and no muffled voice Teeth and gingiva: dentition normal Eyes: General: appearance normal, both eyes and all related structures P upils: Equal, round and reactive pupils present Neck: Neck: Yes normal visual inspection, Yes full ROM and Yes no lymphadenopathy Carotids: no bruits Chest: Chest palpation & inspection: normal inspection of the chest Resp: Other: patient on 4 liters of oxygen via nasal canula at baseline Effort & Inspection: normal respiratory effort and able to speak in complete sentences Auscultation: clear to auscultation bilaterally, no crackles, no rales, no rhonchi, no wheezes and diminished lung sounds bilateral in the lower lung reynolds Cardio: Rate: regular rate Rhythm: regular rhythm Heart sounds: S1 normal heart sound present and S2 normal heart sound present Bruits: no carotid bruits Peripheral pulses: Peripheral pulses 2+ throughout GI: Inspection: Yes normal to inspection Palpation (GI): Soft to palpation, not firm, nontender and no guarding : General: Yes no CVA tenderness Back/Spine/Pelvis: Back: no CVA tenderness Skin: Other: Left plantar foot ulceration dry with eschar, right side trans met appears to be heal but does have a plantar ulceration there as well. General skin exam: no rashes or lesions noted Wounds: no wounds Hair: normal Neuro: General: oriented to person, oriented to place, oriented to time, patient oriented x3 and moves all extremities Cranial nerves: Yes CN's II-XII intact bilaterally, Yes Equal, round and reactive pupils present and Yes Normal hearing present Cognition (Neuro): normal cognition Motor exam (neuro): 5 /5 motor strength present throughout Sensory Exam: Normal double simultaneous stimulation for sensation Coordination: [id number] test normal Extrem: Other: bilateral feet chronic wounds General: Yes normal to inspection, Yes full ROM, Yes capillary refill normal, No clubbing, No cyanosis and No edema Psych: Appearance: grossly normal Mental Status: mental status grossly normal Speech and movement: Normal speech and movement present Affect: n ormal affect Attitude: cooperative Thought process: Normal thought process present Thought content: Normal thought content present Insight: Good insight present (Psych) Objective Data Labs 05/19/23 14:56 05/20/23 06:08 Labs: Laboratory Results - last 24 hr 05/22/23 05/22/23 08:11 12:30 POC Glucose 136 H 126 H Microbiology Microbiology Results: Microbiology 05/19/23 15:12 Blood - Venous Blood Culture - Preliminary No growth after 48 hours. 05/19/23 14:56 Blood - Venous Blood Culture - Preliminary No growth after 48 hours. Procedures Date of Service Date of Service: 05/22/23 Assessment & Plan Assessment and plan (1) Renal failure: Status: Acute (2) Cellulitis: Status: Acute Plan ESRD: TTS Diabtic fooot infection HD non-compliance REC: cont HD 3x/wk--TTS; ABx as per ID; d/c planning Will follow w team Time Spent With Patient Time: Total time managing care of this patient today ____ minutes. Progress Note: Quality Stroke Does the patient have a stroke diagnosis?: No
[2023-05-22] MEDS: gadobutroL 10 ML VIAL IVPUSH (19:56)
[2023-05-22 20:00] VITALS: BP 202/100; PULSE 90; RESP 20; TEMP 36.2; O2SAT 99
[2023-05-22] MEDS: hydrALAZINE HCl 50 MG TABLET PO (21:25)
[2023-05-22 23:24] VITALS: BP 172/84; PULSE 82; RESP 20; TEMP 36.3; O2SAT 97
[2023-05-23] MEDS: HYDROmorphone HCl 0.5 MG/0.5 ML SYRINGE 0.25 MG IVPUSH ×5 (01:41→21:33)
[2023-05-23 03:18] VITALS: BP 187/106; PULSE 78; RESP 20; TEMP 36.8; O2SAT 100
[2023-05-23 07:11] VITALS: BP 180/96; PULSE 80; RESP 18; TEMP 36.2; O2SAT 97
[2023-05-23 07:31] LABS: Glucose, Whole Blood 112 mg/dL (60-115)
[2023-05-23] MEDS: carvediloL 12.5 MG TABLET PO ×2 (09:01→21:30)
[2023-05-23] MEDS: Loperamide HCl 2 MG CAPSULE 4 MG PO (09:01)
[2023-05-23] MEDS: cloNIDine HCL 0.1 MG TABLET PO ×2 (09:02→21:28)
[2023-05-23] MEDS: 0.9 % Sodium Chloride Flush 3 ML SYRINGE IVFLUSH ×2 (09:02→16:00)
[2023-05-23] MEDS: hydrALAZINE HCl 50 MG TABLET PO ×3 (09:03→21:28)
--- NOTE | 2023-05-23 10:17 | HO.VASCPN ---
Subjective Subjective Date of Service: 05/23/23 Patient reports: no new complaints Interval history: No changes overnight. Patient doing approximately the same. Physical Exam Vital Signs: Vital Signs: Last Vital Signs Temp 97.1 F 05/23/23 07:11 Pulse 80 05/23/23 07:11 Resp 18 05/23/23 07:11 BP 180/96 H 05/23/23 07:11 Pulse Ox 97 05/23/23 07:11 O2 Del Method Room Air 05/23/23 07:11 O2 Flow Rate 3 05/21/23 03:38 Oxygen Flow Rate 3 05/19/23 13:44 BMI result Body Mass Index 29.8 Const: General: cooperative, healthy appearing and no acute distress Orientation/consciousness: oriented to person, oriented to place and oriented to time HEENT: Head: Yes normal to inspection Neck: Carotids: no bruits Chest: Chest palpation & inspection: normal inspection of the chest Resp: Effort & Inspection: normal respiratory effort and able to speak in complete sentences Auscultation: clear to auscultation bilaterally Cardio: Rate: regular rate Heart sounds: S1 normal heart sound present and S2 normal heart sound present GI: Inspection: Yes normal to inspection Skin: Other: Nonhealing bilateral lower extremity ulcer General skin exam: no rashes or lesions noted Wounds: no wounds Neuro: General: oriented to person, oriented to place, oriented to time and CN's II-XI intact bilaterally Extrem: General: Yes normal to inspection, Yes full ROM and Yes no clubbing, cyanosis or edema Psych: Appearance: grossly normal and well kempt Speech and movement: Normal speech and movement present Affect: normal affect Progress Note: A&P Assessment and plan (1) Foot ulcer: Status: Acute Assessment and Plan: In short patient has an outpatient follow-up scheduled with us. Would continue with local wound care. She can see us as an outpatient and will schedule arterial testing at that time as well. Thank you for allowing us to assist in her care. Time Spent With Patient Time: Total time managing care of this patient today ____ minutes. Procedures Date of Service Date of Service: 05/23/23 Quality Stroke Does the patient have a stroke diagnosis?: No VTE Prior VTE?: No VTE Risk Level:: Medical - moderate - high VTE Device Contraindication: Treatment Not Indicated VTE Drug Contraindication: N/A - Med Ordered
--- NOTE | 2023-05-23 11:25 | PC.NURSE ---
pt refusing 1130 vitals and POC
[2023-05-23] MEDS: gadobutroL 10 ML VIAL IVPUSH (12:58)
--- NOTE | 2023-05-23 14:09 | HO.PM.IMPN ---
Subjective Subjective Date of Service: 05/23/23 Interval History: MRI with artifact, area of interest at periphery of study C/o diarrhea N/V resolved Review of Systems Review of Systems: Yes all other systems are reviewed and are negative Physical Exam Vital Signs: Vital Signs: Last Vital Signs Temp 97.1 F 05/23/23 07:11 Pulse 80 05/23/23 07:11 Resp 18 05/23/23 07:11 BP 180/96 H 05/23/23 07:11 Pulse Ox 97 05/23/23 07:11 O2 Del Method Room Air 05/23/23 07:11 O2 Flow Rate 3 05/21/23 03:38 Oxygen Flow Rate 3 05/19/23 13:44 BMI result Body Mass Index 29.8 Gen: in no acute distress HEENT: sclera anicteric, moist mucus membranes, blind Neck: supple Lungs: clear to auscultation bilaterally Heart: regular rate and rhythm, no murmurs Abd: soft, non-tender, non-distended Ext: s/p R TMA Skin: plantar ulcer on R foot, also dry ulcer on L foot with eschar Neuro: alert and oriented x3, no focal findings Psych: appropriate affect Objective Data Active Medications Acetaminophen (Acetaminophen 325 Mg Tablet) 650 mg PO Q6H PRN PRN Reason: Pain, Mild (Pain Scale 1-3) Aspirin (Aspirin Enteric Coated 81 Mg Tablet.) 81 mg PO DAILY [facility] Last Admin: 05/23/23 08:51 Dose: Not Given Documented By: NETO Non-Admin Reason: Patient Refused Benzonatate (Benzonatate 100 Mg Capsule) 100 mg PO TID PRN PRN Reason: Cough Carvedilol (Carvedilol 12.5 Mg Tablet) 12.5 mg PO BID [facility]; Protocol Last Admin: 05/23/23 09:01 Dose: 12.5 mg Documented By: NETO Clonidine HCl (Clonidine Hcl 0.1 Mg Tablet) 0.1 mg PO BID [facility]; Protocol Last Admin: 05/23/23 09:02 Dose: 0.1 mg Documented By: NETO Dextrose (Dextrose 50 % 25 Gm/50 Ml Syringe) 25 gm IVPUSH Q15M PRN; Protocol PRN Reason: per Hypoglycemia Standing Ord. Docusate Sodium (Docusate Sodium 100 Mg Capsule) 100 mg PO DAILY PRN PRN Reason: Constipation Doxycycline Monohydrate (Doxycycline Monohydrate 100 Mg Capsule) 100 mg PO Q12H [facility] Glucose (Glucose Gel 15 Gm Gel..Gram.) 15 gm PO Q15M PRN; Protocol PRN Reason: per Hypoglycemia Standing Ord. Heparin Sodium (Porcine) (Heparin Sodium,Porcine 5,000 Unit/Ml Vial) 5,000 unit SUBCUT Q8H [facility] Last Admin: 05/23/23 09:05 Dose: Not Given Documented By: NETO Non-Admin Reason: Patient Refused Hydralazine HCl (Hydralazine Hcl 50 Mg Tablet) 50 mg PO TID [facility]; Protocol Last Admin: 05/23/23 09:03 Dose: 50 mg Documented By: NETO Hydromorphone HCl (Hydromorphone Hcl 0.5 Mg/0.5 Ml Syringe) 0.25 mg IVPUSH Q4H PRN; Protocol PRN Reason: Pain, Severe (Pain Scale 7-10) Last Admin: 05/23/23 10:18 Dose: 0.25 mg Documented By: NETO Piperacillin Sod/Tazobactam (Sod 2.25 gm/ Sodium Chloride) 50 mls @ 100 mls/hr IV Q8H [facility] Last Admin: 05/23/23 08:51 Dose: Not Given Documented By: NETO Non-Admin Reason: Patient Refused Cefazolin Sodium/Dextrose (Ancef) 2 gm in 50 mls @ 100 mls/hr IV TuThSa@1800 [facility] Last Admin: 05/22/23 17:26 Dose: Not Given Documented By: BRENDA Non-Admin Reason: Patient Refused Insulin Human Lispro (Insulin Lispro 100 Unit/Ml 3 Ml Vial) 0 unit SUBCUT QIDACHS [facility]; Protocol Last Admin: 05/23/23 11:25 Dose: Not Given Documented By: NETO Non-Admin Reason: Patient Refused Isosorbide Mononitrate (Isosorbide Mononitrate 30 Mg Tab.Er.24h) 30 mg PO DAILY [facility]; Protocol Last Admin: 05/23/23 08:51 Dose: Not Given Documented By: NETO Non-Admin Reason: Patient Refused Lidocaine (Lidocaine 4 % Patch Adh..Patch) 1 patch TRANSDERMA DAILY [facility] Last Admin: 05/23/23 08:52 Dose: Not Given Documented By: NETO Non-Admin Reason: Patient Refused Loperamide HCl (Loperamide Hcl 2 Mg Capsule) 4 mg PO Q4H PRN PRN Reason: diarrhoea Last Admin: 05/23/23 09:01 Dose: 4 mg Documented By: NETO Losartan Potassium (Losartan Potassium 50 Mg Tablet) 50 mg PO DAILY [facility]; Protocol Last Admin: 05/23/23 08:52 Dose: Not Given Documented By: NETO Non-Admin Reason: Patient Refused Melatonin (Melatonin 3 Mg Tablet) 6 mg PO BEDTIME PRN PRN Reason: Insomnia Metoclopramide HCl (Metoclopramide Hcl 10 Mg/2 Ml Vial) 5 mg IVPUSH Q6H PRN PRN Reason: nausea/vomiting Nifedipine (Nifedipine Er 60 Mg Tab.Er.24) 60 mg PO DAILY [facility]; Protocol Last Admin: 05/23/23 08:52 Dose: Not Given Documented By: NETO Non-Admin Reason: Patient Refused Ondansetron HCl (Ondansetron Hcl 4 Mg/2 Ml Vial) 4 mg IVPUSH Q8H PRN PRN Reason: Nausea and Vomiting Last Admin: 05/19/23 20:49 Dose: 4 mg Documented By: PARAG Sodium Chloride (0.9 % Sodium Chloride Flush 3 Ml Syringe) [facility] Last Admin: 05/23/23 09:02 Dose: 3 ml Documented By: NETO Torsemide (Torsemide 20 Mg Tablet) 40 mg PO BID@1200,1800 [facility]; Protocol Last Admin: 05/23/23 11:25 Dose: Not Given Documented By: NETO Non-Admin Reason: Patient Refused Vitamin D (Cholecalciferol (Vitamin D3) 25 Mcg Tablet) 50 mcg PO DAILY [facility] Last Admin: 05/23/23 08:51 Dose: Not Given Documented By: NETO Non-Admin Reason: Patient Refused Labs 05/19/23 14:56 05/20/23 06:08 Labs: Laboratory Results - last 24 hr 05/23/23 07:28 POC Glucose 112 Assessment and Plan (1) Cellulitis: Status: Acute (2) End-stage renal disease (ESRD): Status: Acute Plan d5 32yo F with ESRD on TuThSa, DM2 with neuropathy + retinopathy [legally blind], poorly controlled HTN, chronic diabetic foot ulcers s/p R TMA + L 4th/5th digit amputations, nonadherence with meds + HD, frequent hospitalizations due to missed HD admitted tor missed HD, uncontrolled HTN, infection of feet bilateral foot cellulitis due to DM2, concern for osteomyelitis of R TMA - repeat MRI - cefazolin 2 g IV with HD; IV -> PO doxycycline, plan 6 wk per ID. d/c pip-esme - Wound Care: 1. Turn and Reposition every 2 hours and as needed for patient comfort. 2. Off Load all bony prominences with use of pillows and heel boots as needed. 3. Provide adequate and supplemental nutrition. 4. Maintain blood glucose levels per Providers orders. 5. Bilateral Feet - Cleanse and irrigate with NS, Pat dry. Apply cut to size Durafiber AG to wound bed , cover with dry gauze, ABD pad and gauze wrap. Change every other day. Off Load Pressure. diarrhea - check Cdiff - prn loperamide ESRD on HD - continue HD TuThSa HTN - carvedilol, hydralazine, Imdur, losartan [increase dose], nifedipine, torsemide, clonidine DM2 - muna-dose lispro -follow renals/divalents -replete as indicatyed VTE ppx - [facility] dispo - eventual home with VNA In my clinical judgment, the patient requires continued inpatient hospitalization for the following reasons: IV ABX, uncontrolled BP Total time managing care of this patient today: 45 minutes. Quality Stroke Does the patient have a stroke diagnosis?: No VTE Prior VTE?: No VTE Risk Level:: Medical - moderate - high VTE Device Contraindication: Treatment Not Indicated VTE Drug Contraindication: N/A - Med Ordered
[2023-05-23 15:22] VITALS: BP 183/90; PULSE 80; RESP 18; TEMP 35.9; O2SAT 97
[2023-05-23 15:25] VITALS: BP 183/90; PULSE 80; RESP 18; TEMP 35.9; O2SAT 98
[2023-05-23 15:32] LABS: Glucose, Whole Blood 169 mg/dL (60-115)
[2023-05-23] MEDS: Torsemide 20 MG TABLET 40 MG PO (15:42)
[2023-05-23 20:00] VITALS: BP 160/89; PULSE 81; RESP 20; TEMP 36.3; O2SAT 99
[2023-05-23] MEDS: Doxycycline Monohydrate 100 MG CAPSULE PO (21:32)
[2023-05-23 23:45] VITALS: TEMP 36.3
[2023-05-24] MEDS: 0.9 % Sodium Chloride Flush 3 ML SYRINGE IVFLUSH ×2 (00:03→08:20)
[2023-05-24] MEDS: HYDROmorphone HCl 0.5 MG/0.5 ML SYRINGE 0.25 MG IVPUSH ×3 (03:20→13:09)
[2023-05-24 04:00] VITALS: BP 172/91; PULSE 76; RESP 18; TEMP 36.2; O2SAT 99
[2023-05-24 08:00] VITALS: BP 198/108; PULSE 79; RESP 19; TEMP 36.1; O2SAT 98
[2023-05-24] MEDS: Isosorbide Mononitrate 30 MG TAB.ER.24H PO (08:18)
[2023-05-24] MEDS: hydrALAZINE HCl 50 MG TABLET PO (08:18)
[2023-05-24] MEDS: Doxycycline Monohydrate 100 MG CAPSULE PO (08:19)
[2023-05-24] MEDS: cloNIDine HCL 0.1 MG TABLET PO (08:19)
[2023-05-24] MEDS: Losartan Potassium 50 MG TABLET 100 MG PO (08:19)
[2023-05-24] MEDS: carvediloL 12.5 MG TABLET PO (08:19)
[2023-05-24 12:00] VITALS: BP 157/80; PULSE 78; RESP 20; TEMP 36.6; O2SAT 98
--- NOTE | 2023-05-24 12:32 | PC.NURSE ---
pt reused POC blood glucose at 0730 and 1130
--- NOTE | 2023-05-24 12:36 | P.F2F_ITS ---
Service Date Service Date: 05/24/23 Encounter Date of encounter: 05/24/23 Reasons for Services Signs and symptoms assessed: wound Reason for long-term: wound care, diabetic teaching, monitoring of unstable blood sugar, medication management and medication treatment Reason for physical therapy: home safety and mobility, therapeutic exercises, restore joint function, gait/transfer training, assess need for DME, ADL training and energy conservation MD Overseeing Care: Abdon Beard Homebound: Leaving the home is medically contraindicated at this time without the asist of a device and/or another person due th the listed conditions above and below. Reason homebound: immunosuppression / infection risk and legally blind Certification: Based on the above findings, I certify that this patient is confined to the home and needs intermittent long-term care, physical therapy and/or speech therapy, or continues to need occupational therapy. The patient is under my care, and I have initiated the establishment of the plan of care. The patient will be followed by a physician who will periodically review the plan of care. Time Spent With Patient Time: Total time managing care of this patient today ____ minutes.
--- NOTE | 2023-05-24 12:48 | PM.DS ---
DS: Providers Provider Date of Service: 05/24/23 Date of admission: 05/19/23 18:01 Date of discharge: 05/24/23 Primary care physician: Abdon Beard MD Consults: 05/19/23 18:11 Consult to Infectious Diseases Routine Consulting Provider: [facility] Infectious Disease Reason for consultation: Worsening chronic foot wounds 05/19/23 18:43 Consult to Wound Care Routine Reason for consultation: Worsening chronic diabetic foot ulcers 05/19/23 18:47 Consult to Nephrology Routine Consulting Provider: Sylvain Ruiz Reason for consultation: Missed dialysis on 05/21/23 18:50 Consult to Vascular Surgery Routine Consulting Provider: [facility] Vascular Services Reason for consultation: dm foot wounds/cellulitis Has provider been notified: No DS: Diagnosis Discharge Diagnosis (1) Cellulitis: Status: Acute (2) End-stage renal disease (ESRD): Status: Acute (3) Hypertension: Status: Acute (4) Type 2 diabetes mellitus with hyperglycemia, with long-term current use of insulin: Status: Acute DS: Summary Hospital Course Hospital Course: From the history and physical by the admitting hospitalist, JOVON Botello, 05/19/23: Pt is a 32-year-old female with a PMH significant for?PMH significant for?ESRD on dialysis Sun/Sun/Sun (though refuses to attend Sat dialysis), 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 Patient states that the past few days she has noticed a foul-smelling discharge coming from her wounds, which have also been more painful than normal. Denies fever, chills. Patient also reports missing dialysis due to an appointment with her PCP. No other acute medical complaints at this time. In the ED pt was was afebrile, but tachycardic up to 100, and hypertensive up to 204/127. Labs were significant for ESR 70, BUN 62, creatinine 6.12, bilirubin 1.2, alk-phos 155, and C-reactive protein 1.02. No significant electrolyte abnormalities. CXR showed low lung volumes with suspected minimal bibasilar atelectasis. X-ray of left foot showed evidence of osteomyelitis, but did show soft tissue gas along mid plantar aspect of foot new since previous exam on 04/12/2023. X-ray of right foot found soft tissue gas along medial. But no bony erosive changes to suggest osteomyelitis. EKG demonstrated normal sinus rhythm with RBBB and possible left atrial enlargement, similar to previous. Pt was treated with ondansetron, Dilaudid, Zosyn, daptomycin, hydralazine, and labetalol. Pt will be admitted to the hospital for treatment and further evaluation of worsening chronic diabetic foot wounds and worsening kidney function secondary to missed dialysis. 32yo F with ESRD on TuThSa, DM2 with neuropathy + retinopathy [legally blind], poorly controlled HTN, chronic diabetic foot ulcers s/p R TMA + L 4th/5th digit amputations, nonadherence with meds + HD, and frequent hospitalizations due to missed HD. She was admitted tor missed HD, uncontrolled HTN, and concern for infection of feet. Hospital course by problem: bilateral foot cellulitis due to DM2 - Infectious Disease was consulted and the patient was started on IV cefazolin, piperacilli-tazobactam, and doxycycline for conceron of osteomyelitis of the R TMA site. MRI ultimately did not demonstrate underlying osteomyelitis. Blood cultures were negative. She was discharged home on 2 weeks [minus 5 days given in hospital] or oral doxycycline. - Per Wound Care: 1. Turn and Reposition every 2 hours and as needed for patient comfort. 2. Off Load all bony prominences with use of pillows and heel boots as needed. 3. Provide adequate and supplemental nutrition. 4. Maintain blood glucose levels per Providers orders. 5. Bilateral Feet - Cleanse and irrigate with NS, Pat dry. Apply cut to size Durafiber AG to wound bed , cover with dry gauze, ABD pad and gauze wrap. Change every other day. Off Load Pressure. ESRD on HD - Continued on HD TuThSa and counseled on importance of adherence. HTN, uncontrolled - Continued Imdur, hydralazine, carvedilol, torsemide, and clonidine; increased doses of losartan and nifedipine. She was discharged home with VNA services and will need follow up with Vascular Surgery and Primary Care along with her usual dialysis sessions. Time Attestation Total time managing care of this patient today: 45 mintues. Discharge Coordination Time (in mins): 45 Quality: Safe Use of Opioids Does Pt have an Active Cancer Diagnosis on the Problem List?: No Quality: Stroke Does the patient have a stroke diagnosis?: No Physical Exam Vital Signs: Vital Signs: Last Vital Signs Temp 97.9 F 05/24/23 12:00 Pulse 78 05/24/23 12:00 Resp 20 05/24/23 12:00 BP 157/80 H 05/24/23 12:00 Pulse Ox 98 05/24/23 12:00 O2 Del Method Room Air 05/24/23 12:00 O2 Flow Rate 3 05/21/23 03:38 Oxygen Flow Rate 3 05/19/23 13:44 BMI result Body Mass Index 29.8 Gen: in no acute distress HEENT: sclera anicteric, moist mucus membranes, blind Neck: supple Lungs: clear to auscultation bilaterally Heart: regular rate and rhythm, no murmurs Abd: soft, non-tender, non-distended Ext: s/p R TMA Skin: plantar ulcer on R foot, also dry ulcer on L foot with eschar Neuro: alert and oriented x3, no focal findings Psych: appropriate affect DS: Data Data Completed and Pending Completed studies during hospitalization [Text1]: Laboratory Results WBC 6.0 X10*3/uL (4.8-10.8) 05/19/23 14:56 RBC 3.08 X10*6/uL (4.20-5.50) L 05/19/23 14:56 Hgb 9.1 g/dl (12.0-16.0) L 05/19/23 14:56 Hct 28.7 % (37.0-47.0) L 05/19/23 14:56 MCV 93.2 fL (80.0-98.0) 05/19/23 14:56 MCH 29.5 pg (27.0-33.0) 05/19/23 14:56 MCHC 31.7 g/dl (31.0-35.0) 05/19/23 14:56 RDW 16.4 % (11.0-16.0) H 05/19/23 14:56 Plt Count 157 X10*3/uL (160-400) L 05/19/23 14:56 MPV 11.4 fL (9.4-12.3) 05/19/23 14:56 Immature Gran % (Auto) 0.2 % (0.0-0.4) 05/19/23 14:56 Neut % (Auto) 81.6 % (45-73) H 05/19/23 14:56 Lymph % (Auto) 10.1 % (20-40) L 05/19/23 14:56 Gila % (Auto) 6.3 % (2-11) 05/19/23 14:56 Eos % (Auto) 1.5 % (0-4) 05/19/23 14:56 Baso % (Auto) 0.3 % (0-2) 05/19/23 14:56 Lymph # (Auto) 0.6 X10*3/uL (1.2-4.9) L 05/19/23 14:56 Gila # (Auto) 0.4 X10*3/uL (0.1-1.2) 05/19/23 14:56 Eos # (Auto) 0.1 X10*3/uL (0.0-0.4) 05/19/23 14:56 Baso # (Auto) 0.0 X10*3/uL (0.0-0.2) 05/19/23 14:56 Abs Immat Gran (auto) 0.01 X10*3/uL (0.00-0.03) 05/19/23 14:56 Absolute Neuts (auto) 4.9 x10*3/uL (2.0-8.3) 05/19/23 14:56 Absolute Nucleated RBC 0.000 X10*3/uL (0.0-0.012) 05/19/23 14:56 Nucleated RBC % (auto) 0.0 /100WBC (0.0-0.2) 05/19/23 14:56 ESR 70 MM/HR (0-20) H 05/19/23 14:56 Hold Purple Top SEE NOTE 05/20/23 06:08 Sodium 135 mmol/L (135-145) 05/20/23 06:08 Potassium 4.5 mmol/L (3.3-5.1) 05/20/23 06:08 Chloride 107 mmol/L (96-108) 05/20/23 06:08 Carbon Dioxide 21 mmol/L (22-29) L 05/20/23 06:08 Anion Gap 12 (12-20) 05/20/23 06:08 BUN 54 mg/dL (9-16) H 05/20/23 06:08 Creatinine 5.78 mg/dL (0.5-1.4) H* 05/20/23 06:08 Estim Creat Clear Calc 14.9 05/20/23 06:08 Estimated GFR 8 05/20/23 06:08 POC Glucose 169 mg/dL (60-115) H 05/23/23 15:27 Random Glucose 146 mg/dL (60-115) H 05/20/23 06:08 Lactic Acid 0.9 mmol/L (0.5-2.0) 05/19/23 14:56 Calcium 8.1 mg/dL (8.4-10.2) L 05/20/23 06:08 Magnesium 2.1 mg/dL (1.6-2.6) 05/19/23 14:56 Total Bilirubin 1.2 mg/dL (0.0-1.0) H 05/19/23 14:56 AST 25 U/L (5-31) 05/19/23 14:56 ALT 19 U/L (0-31) 05/19/23 14:56 Alkaline Phosphatase 155 U/L (39-117) H 05/19/23 14:56 Total Creatine Kinase 56 U/L (26-140) 05/19/23 14:56 C-Reactive Protein 1.02 mg/dL (< or = 0.50) H 05/19/23 14:56 Total Protein 7.2 g/dL (6.5-8.0) 05/19/23 14:56 Albumin 3.2 g/dL (3.5-5.0) L 05/19/23 14:56 Influenza Type A (PCR) NEGATIVE (Negative) 05/19/23 14:56 Influenza Type B (PCR) NEGATIVE (Negative) 05/19/23 14:56 RSV RNA Qual (PCR) NEGATIVE (Negative) 05/19/23 14:56 SARS-CoV-2 RNA (RT-PCR) NEGATIVE (Negative) 05/19/23 14:56 Impressions Foot X-Ray 05/19/23 14:39 IMPRESSION: 1. Amputation of left first digit and left fifth digit beyond the PIP joint. No bony erosive changes or periosteal thickening seen to suggest osteomyelitis. There is soft tissue gas along the mid plantar aspect of the left foot likely ulceration or laceration. 2. There is amputation of right foot beyond the proximal first through fifth metatarsals. 3. There is soft tissue gas along the medial stump but no bony erosive changes seen. The soft tissue gas right foot is new since the previous exam 04/12/2023 right foot exam Chest X-Ray 05/19/23 16:20 IMPRESSION: Low lung volumes with suspected minimal bibasilar atelectasis. Cardiac silhouette remains mildly enlarged. Foot MRI 05/23/23 12:57 IMPRESSION: LEFT FOOT: 1. Ulcer at the plantar margin of the left midfoot without evidence of underlying abscess or osteomyelitis. 2. Charcot arthropathy in the left midfoot. RIGHT FOOT: No evidence of osteomyelitis in the right foot. Discharge Plan Discharge Anticipated Discharge Date/Time: 05/24/23 12:52 Patient Disposition: Home Health Service Discharge Diagnosis: cellulitis and ulcer of diabetic foot ESRD on HD HTN Referrals: Abdon Beard MD [Primary Care Provider] - 1 Week Nomi Arias MD [Physician] - 2 Weeks Discharge Medications: New losartan 50 mg Tablet 100 mg PO DAILY Qty: 30 0RF Protocol: Hold for SBP< HOLD for SBP < : 90 Rx Instructions: replaces prior dose of 50 mg daily doxycycline monohydrate 100 mg Capsule 100 mg PO Q12H Qty: 18 0RF nifedipine 90 mg Tablet Extended Release 24hr 90 mg PO DAILY Qty: 30 0RF Protocol: Hold for SBP< HOLD for SBP < : 90 Rx Instructions: replaces prior dose of 60 mg daily Continued isosorbide mononitrate 30 mg tablet extended release 24 hr 30 mg PO DAILY lidocaine 5 % adhesive patch,medicated 1 patch topical DAILY oxycodone 5 mg tablet 5 mg PO Q6H PRN (Reason: severe pain) (DME) off loading boot Kit See Rx Instructions .Route Qty: 1 0RF Rx Instructions: As directed aspirin 81 mg Tablet,Delayed Release (Dr/Ec) 81 mg PO DAILY Qty: 30 0RF cholecalciferol (vitamin D3) 50 mcg (2,000 unit) capsule 50 mcg PO DAILY acetaminophen 325 mg tablet 650 mg PO Q4H PRN (Reason: mild pain) clonidine HCl 0.1 mg Tablet 0.3 mg PO BID Qty: 60 0RF Protocol: Hold for SBP< HOLD for SBP < : 90 hydralazine 100 mg tablet 50 mg PO TID Qty: 90 0RF torsemide 20 mg tablet 40 mg PO BID@1200,1800 docusate sodium 100 mg capsule 100 mg PO DAILY PRN (Reason: constipation) carvedilol 25 mg tablet 12.5 mg PO BID Rx Instructions: must administer with a meal/food Discontinued nifedipine 60 mg tablet extended release 24hr 60 mg PO DAILY losartan 50 mg tablet 50 mg PO DAILY Qty: 30 0RF Discharge Orders: Discharge Order (Routine); Ordered 05/24/23 Ordered By: Paul Diane Diet: Diabetic diet Activity on Discharge: As tolerated Stand Alone Forms: Patient Portal Discharge page Care Plan Goals: cure of infection/wound renal health blood pressure control Health Concerns: cellulitis and ulcer of diabetic foot ESRD on HD HTN Plan of Treatment: doxycycline 100 mg twice daily for 9 days wound care: Cleanse and irrigate with NS, Pat dry. Apply cut to size Durafiber AG to wound bed , cover with dry gauze, ABD pad and gauze wrap. Change every other day. Off Load Pressure follow up with DR Arias [Vascular Surgery] in 2 weeks continue antihypertensives; increase losartan to 100 mg daily and increase nifedipine to 90 mg daily Please follow up with your primary care doctor within 1 week. Return to the hospital if you experience recurrent or worsening symptoms. Assessment: See Discharge Summary.
[2023-05-24] MEDS: Torsemide 20 MG TABLET 40 MG PO (13:09)
--- NOTE | 2023-05-24 14:34 | MHC.CM.PN ---
Addendum entered by Leda Bearden 05/24/23 15:10: [facility] has accepted pt. DC summary sent via careport. Addendum entered by Leda Bearden 05/24/23 14:41: IVAN spoke with nurse at [facility] in [place] to request the dressing change on the wound on pt.'s foot while she is there. The nurse said she would do it if pt. came to dialysis even 2 times a week, but she does not, so she cannot commit to helping with this. Original Note: Pt has been medically cleared for DC, she went home via family transport. IVAN has sent out referrals for VNA, for wound care, none accepting pt at this time, still awaiting response from some. IVAN called Dialysis center to inquire if they can change dressing while pt is there.
--- NOTE | 2023-05-26 13:23 | P.CDIM_ITS ---
PROVIDER RESPONSE TEXT: To clarify, the appropriate diagnosis supported by the clinical indicators: Diabetes mellitus Type 2 with polyneuropathy QUERY TEXT: PHYSICIAN'S DOCUMENTATION REQUEST Date of Query: 05/24/2023 10:04 AM EDT Patient Name: Shereen Taylor Admit Date: 05/19/2023 Dear Paul Diane, A review of the medical record indicates additional documentation may be needed. Please review below and update the documentation accordingly. Clinical Indicators: Diabetes mellitus type 2 with neuropathy patient non compliant with medications Please clarify the following regarding the Complications of Diabetes Mellitus (DM): Diabetes mellitus Type 2 with peripheral neuropathy Diabetes mellitus Type 2 with polyneuropathy Diabetes mellitus Type 2 with mononeuropathy Diabetes mellitus Type 2 with autonomic neuropathy Other Other (explain) Clinically unable to determine (explain) Thank you, Betsey Metz, CCS, CDIS Use of terms such as suspected, likely, concern for, or probable (associated with a specific diagnosi s that is being evaluated, monitored, or treated as if it exists) are acceptable and can be coded in the inpatient se tting, when documented at the time of discharge. Please use your independent medical judgment in providing your response. THIS QUERY IS PART OF THE PERMANENT MEDICAL RECORD
== END 2023-05-24 14:32 | disposition home health service (06) | DRG 638 ==
LOC: HO.ED 15:31 → HO.EDOVER 18:16 → HO.IMC 18:33
PROVIDERS: Hospitalist; Internal Medicine; Physician Assistant Medical; Admitting Provider Student in an Organized Health Care Education/Training Program; Emergency Provider Emergency Medicine; PCP Internal Medicine; Visit Provider Family Medicine
DX: E11.628 Type 2 diabetes mellitus with other skin complications (principal); I13.2 Hypertensive heart and chronic kidney disease with heart failure and with stage 5 chronic kidney disease, or end stage renal disease; J96.11 Chronic respiratory failure with hypoxia; L03.116 Cellulitis of left lower limb; L03.115 Cellulitis of right lower limb; I50.22 Chronic systolic (congestive) heart failure; L97.429 Non-pressure chronic ulcer of left heel and midfoot with unspecified severity; L97.419 Non-pressure chronic ulcer of right heel and midfoot with unspecified severity; E11.621 Type 2 diabetes mellitus with foot ulcer; N18.6 End stage renal disease; I16.0 Hypertensive urgency; H54.8 Legal blindness, as defined in USA; Z99.2 Dependence on renal dialysis; E11.22 Type 2 diabetes mellitus with diabetic chronic kidney disease; Z99.81 Dependence on supplemental oxygen; Z91.158 Patient's noncompliance with renal dialysis for other reason; Z20.822 Contact with and (suspected) exposure to COVID-19; Z79.82 Long term (current) use of aspirin; Z79.899 Other long term (current) drug therapy
CPT/HCPCS: 0241U; 36415; 71045; 73630; 73720; 80048; 80053; 82550; 82947; 83605; 83735; 85025; 85652; 86140; 87040; 90999; 93005; 99285; A9585; J0360; J0878; J1170; J1920; J2405; J2543

== ENCOUNTER → 2023-05-19 14:18 | Outpatient (BNV) | payer OTHER, SELFPAY | PROVIDERS: Admitting Provider Student in an Organized Health Care Education/Training Program; Emergency Provider Emergency Medicine; PCP Internal Medicine; Visit Provider Internal Medicine | DX: R94.31 Abnormal electrocardiogram [ECG] [EKG] (principal) | CPT/HCPCS: 93010 ==

== ENCOUNTER → 2023-05-19 18:01 | Outpatient (BNV) | payer OTHER, SELFPAY | PROVIDERS: Admitting Provider Student in an Organized Health Care Education/Training Program; Emergency Provider Emergency Medicine; PCP Internal Medicine; Visit Provider Surgery Vascular Surgery | DX: E11.621 Type 2 diabetes mellitus with foot ulcer (principal); L97.529 Non-pressure chronic ulcer of other part of left foot with unspecified severity | CPT/HCPCS: 99223; 99232 ==

== ENCOUNTER → 2023-05-19 18:01 | Outpatient (BNV) | payer OTHER, SELFPAY | PROVIDERS: Admitting Provider Student in an Organized Health Care Education/Training Program; Emergency Provider Emergency Medicine; PCP Internal Medicine; Visit Provider Internal Medicine | DX: L03.90 Cellulitis, unspecified (principal); N18.6 End stage renal disease | CPT/HCPCS: 99222 ==

== ENCOUNTER → 2023-05-19 18:01 | Outpatient (BNV) | payer OTHER, SELFPAY | PROVIDERS: Admitting Provider Student in an Organized Health Care Education/Training Program; Emergency Provider Emergency Medicine; PCP Internal Medicine; Visit Provider Student in an Organized Health Care Education/Training Program | DX: I12.0 Hypertensive chronic kidney disease with stage 5 chronic kidney disease or end stage renal disease (principal); N18.6 End stage renal disease; E11.621 Type 2 diabetes mellitus with foot ulcer; L97.529 Non-pressure chronic ulcer of other part of left foot with unspecified severity; E11.65 Type 2 diabetes mellitus with hyperglycemia; Z79.4 Long term (current) use of insulin | CPT/HCPCS: 99223; 99232; 99233; 99239; G0180 ==

== ENCOUNTER 2023-05-24 | Outpatient (REF) | payer OTHER, SELFPAY | END 2023-05-24 00:01 | disposition home or self-care (01) | LOC: HO.CT | PROVIDERS: PCP Internal Medicine; Visit Provider Surgery Vascular Surgery | DX: I73.9 Peripheral vascular disease, unspecified (principal) | CPT/HCPCS: 90999 ==

== ENCOUNTER 2023-05-28 19:10 | Emergency (ER) | payer OTHER, SELFPAY ==
[2023-05-28 19:18] VITALS: BP 167/104; PULSE 97
[2023-05-28 19:19] VITALS: BP 203/112; PULSE 99; RESP 16; TEMP 36.6; O2SAT 97; BMI 24.2
--- NOTE | 2023-05-28 20:21 | PC.NURSE ---
Lab work not necessary per Dr. Kincaid.
--- NOTE | 2023-05-28 20:26 | ED_ITS ---
HPI - General Adult General Chief complaint: Extremity Injury, Lower Stated complaint: ? leg infection Time Seen by Provider: 05/28/23 19:26 Source: patient Mode of arrival: ambulatory History of Present Illness HPI narrative: 32-year-old female who comes in by ambulance with complaints of 10/10 pain in bilateral lower extremities, patient states that she has infection both feet. Related Data Home Medications Medication Instructions Recorded Confirmed isosorbide mononitrate 30 mg 30 mg PO DAILY 03/11/23 05/19/23 tablet,extended release 24 hr lidocaine 5 % topical patch 1 patch topical DAILY 03/11/23 05/19/23 oxycodone 5 mg tablet 5 mg PO Q6H PRN severe pain 03/11/23 05/19/23 acetaminophen 325 mg tablet 650 mg PO Q4H PRN mild pain 03/20/23 05/19/23 cholecalciferol (vitamin D3) 50 50 mcg PO DAILY 03/20/23 05/19/23 mcg (2,000 unit) capsule carvedilol 25 mg tablet 12.5 mg PO BID 05/19/23 05/19/23 docusate sodium 100 mg capsule 100 mg PO DAILY PRN constipation 05/19/23 05/19/23 torsemide 20 mg tablet 40 mg PO BID@1200,1800 05/19/23 05/19/23 Previous Rx's Medication Instructions Recorded aspirin 81 mg tablet,delayed 81 mg PO DAILY #30 tabs 01/29/23 release off loading boot #1 ea 03/14/23 clonidine HCl 0.1 mg tablet 0.3 mg PO BID #60 tabs 03/28/23 hydralazine 100 mg tablet 50 mg (1/2 x 100 mg) PO TID #90 04/17/23 tabs doxycycline monohydrate 100 mg 100 mg PO Q12H #18 caps 05/24/23 capsule losartan 50 mg tablet 100 mg PO DAILY #30 tabs 05/24/23 nifedipine 90 mg tablet,extended 90 mg PO DAILY #30 tabs 05/24/23 release 24 hr Allergies Allergy/AdvReac Type Severity Reaction Status Date / Time morphine [MORPHINE] Allergy Intermediate Itching Verified 03/24/23 16:53 azithromycin [From Zithromax] Allergy Hives Verified 03/24/23 16:53 gabapentin Allergy Facial Verified 03/24/23 16:53 Swelling tramadol Allergy Facial Verified 03/24/23 16:53 Swelling vancomycin Allergy Anaphylaxis Verified 04/02/23 15:01 Review of Systems Review of Systems: Pertinent positives and negatives as stated in HPI [facility] Past Medical History Source: nursing notes reviewed Medical History Hypertension End-stage renal disease (ESRD) Foot ulcer CKD (chronic kidney disease) Hypertension Anemia Diabetic foot Vomiting Renal failure Hypertension Hyperkalemia Metabolic acidosis HFrEF (heart failure with reduced ejection fraction) ESRD on dialysis Migraine Diabetic foot ulcer associated with type 2 diabetes mellitus Chronic pain Gastroparesis Non-compliance with renal dialysis Hypertensive emergency Diabetes ESRD needing dialysis Cardiomyopathy delivery delivered Anemia in chronic kidney disease (CKD) CKD (chronic kidney disease) Headache, migraine Abnormal finding on echocardiogram Elevated troponin Chest pain Acute worsening of stage 3 chronic kidney disease Generalized edema Sepsis Cellulitis Pleural effusion CHF (congestive heart failure) (~06/07/22) Tachycardia Atypical chest pain Bone infection PAD (peripheral artery disease) Severe anemia Cellulitis and abscess of foot DM foot ulcer Osteomyelitis test positive test positive Asthma Depression with anxiety Diabetic retinopathy Type 2 diabetes mellitus with hyperglycemia, with long-term current use of insulin Blind right eye Diabetes Back pain Surgical History 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 Family History Family History Mother Coronary artery disease Myocardial infarction Stroke Diabetes mellitus Father Myocardial infarction Social History Social History Household Members: Family Household Members Other:: Sister, [id number], nephew Housing: Apartment Do you presently have visiting nurse or other home services: No Unable to assess alcohol history related to: Unknown Alcohol intake: never 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 Patient Tobacco Use Status: Never used Tobacco Smoked in Last 30 Days: No e-Cigarette/Vaping Use: Never Used Second Hand Smoke Exposure: No Use of substances other than those prescribed or required for medical reasons: No Advance Directives: Yes Advance Directives on File: Yes Advance Directives Date on File: 03/08/20 Patient : No service: No Current occupational status: unemployed and disabled Gender identity: Female Physical Exam ED Vital Signs: Vital Signs - 24 hr 04/01/24 19:19 Temperature 98 F Pulse Rate 99 Respiratory Rate 16 Blood Pressure 203/112 H Pulse Oximetry 97 Oxygen Delivery Method Room Air BMI result Body Mass Index 24.2 VITAL SIGNS: Reviewed. GENERAL: Well developed, well nourished, in no acute distress. HEAD: Normocephalic/atraumatic EYES: PERRLA, EOMI, subconjunctival hemorrhage on the right LUNGS: Normal breath sounds. No adventitious sounds or accessory muscle use. SpO2<97> CARDIOVASCULAR: Regular rate and rhythm without noted murmurs, no JVD or lower extremity edema. ABDOMEN: Soft, non-tender, non-distended with bowel sounds. MUSCULOSKELETAL: No tenderness, deformities, or effusions noted on gross inspection. EXTREMITIES: No cyanosis, clubbing or edema. RIGHT FOOT: There is a subcentimeter circumferential wound that has a clean base, no purulence drainage and no surrounding erythema or induration. LEFT FOOT: There are 2 approximate 1 cm wounds to the mid plantar foot, there is no purulence drainage and no surrounding erythema or induration. SKIN: Inspection of the skin reveals no rashes NEUROLOGIC: Alert and oriented x 4. Strength and sensation to light touch were grossly intact x 4. Medications Administered Discontinued Medications Generic Name Dose Route Start Last Admin Trade Name Freq PRN Reason Stop Dose Admin Hydralazine HCl 50 mg 05/28/23 20:20 05/28/23 20:27 Hydralazine Hcl 50 Mg Tablet PO 05/28/23 20:21 50 mg ONCE ONE Administration Protocol Medical Decision Making Medical Decision Making MDM Narrative: 32-year-old female with history and clinical presentation of multiple medical conditions, I have evaluated both feet which appear the best that I have ever seen, there is no evidence any cellulitis or purulence drainage or poor wound healing. Patient was reassured and offered blood pressure medication as well as pain medication but she declined both. Differential Diagnosis Differential Diagnoses: The differential diagnosis associated with the presentation includes Please see the discussion above Admission/Observation Consideration of admission/observation: Escalation of care including admission/observation considered Please see the discussion above External Record Review External record reviewed: Outpatient record and Prior outpatient labs Chronic Conditions Patient?s care impacted by: Diabetes and Hypertension ESRD on dialysis Critical Care Time Critical Care Time Critical Care Time: Yes Total Critical Care Time: 30 Attestation: I personally attest to this time spent taking care of the patient. Discharge Plan Discharge Clinical Impression: Uncontrolled hypertension, Foot pain Patient Disposition: Home, Self-Care Instructions: Diabetic Peripheral Neuropathy (ED) Additional Instructions: 1. Resume all home medications as prescribed. 2. Your foot wounds look very good, I did not identify any evidence of infection. 3. Please attend your dialysis appointment tomorrow and follow-up with your primary care doctor if you have further concerns regarding your feet. You have declined all medication offer to you today. Return to the ER if you have any worsening symptoms. Prescriptions: No Action isosorbide mononitrate 30 mg tablet extended release 24 hr 30 mg PO DAILY lidocaine 5 % adhesive patch,medicated 1 patch topical DAILY oxycodone 5 mg tablet 5 mg PO Q6H PRN (Reason: severe pain) (DME) off loading boot Kit See Rx Instructions .Route Qty: 1 0RF Rx Instructions: As directed aspirin 81 mg Tablet,Delayed Release (Dr/Ec) 81 mg PO DAILY Qty: 30 0RF cholecalciferol (vitamin D3) 50 mcg (2,000 unit) capsule 50 mcg PO DAILY acetaminophen 325 mg tablet 650 mg PO Q4H PRN (Reason: mild pain) clonidine HCl 0.1 mg Tablet 0.3 mg PO BID Qty: 60 0RF Protocol: Hold for SBP< HOLD for SBP < : 90 hydralazine 100 mg tablet 50 mg PO TID Qty: 90 0RF torsemide 20 mg tablet 40 mg PO BID@1200,1800 docusate sodium 100 mg capsule 100 mg PO DAILY PRN (Reason: constipation) carvedilol 25 mg tablet 12.5 mg PO BID Rx Instructions: must administer with a meal/food losartan 50 mg Tablet 100 mg PO DAILY Qty: 30 0RF Protocol: Hold for SBP< HOLD for SBP < : 90 Rx Instructions: replaces prior dose of 50 mg daily doxycycline monohydrate 100 mg Capsule 100 mg PO Q12H Qty: 18 0RF nifedipine 90 mg Tablet Extended Release 24hr 90 mg PO DAILY Qty: 30 0RF Protocol: Hold for SBP< HOLD for SBP < : 90 Rx Instructions: replaces prior dose of 60 mg daily
--- NOTE | 2023-05-28 20:38 | PC.NURSE ---
PT refused oxycodone, tylenol and hydralizine. Reports she took 10mg of Oxy before leaving the house as well as tylenol with little effect. In regards to hydralizine, pt reports I am not taking that, my blood pressure is always high . Attempted to educated pt regarding need for additional dose, pt continued to refuse. Dr. Kincaid made aware and will prepare discharge paperwork.
[2023-05-28 22:10] VITALS: BP 203/112; PULSE 99; RESP 20; TEMP 36.6; O2SAT 97
== END 2023-05-28 22:13 | disposition home or self-care (01) ==
PROVIDERS: Emergency Provider Student in an Organized Health Care Education/Training Program
DX: M79.671 Pain in right foot (principal); M79.672 Pain in left foot; Z91.148 Patient's other noncompliance with medication regimen for other reason
CPT/HCPCS: 99282; 99284

== ENCOUNTER 2023-06-04 14:39 | Inpatient (IN) | payer OTHER, SELFPAY ==
--- NOTE | ~2023-06-04 | CT_ITS ---
EXAMINATION: CT angio head neck stroke CLINICAL INFORMATION: Question stroke. COMPARISON: CT head 06/04/2023. TECHNIQUE: Rotary Machine Operator images were obtained. A CT angiogram of the head and neck was performed in the arterial phase after the intravenous administration of 80 mL Omnipaque 350. Delayed postcontrast images of the head were also obtained. 3D images were processed on an independent workstation under concurrent supervision. Arterial stenoses are measured in accordance with NASCET criteria or similar method if applicable. This CT examination was performed using dose optimization techniques as appropriate, including one or more of the following: Automated exposure control, iterative reconstruction, and adjustment of technique factors (mA and/or kVp) according to patient size (this includes techniques or standardized protocols for targeted exams where dose is matched to indication/reason for exam). Fleischner Society criteria for the followup of incidental pulmonary nodules was implemented if appropriate. Total exam dose-length product 1564 mGy-cm FINDINGS: Head: Postcontrast images reveal no abnormal intracranial mass or enhancement. There is no intracranial mass effect or midline shift. Lateral and third ventricles are normal. No hydrocephalus. Ventura-white matter differentiation is preserved and there is no evidence of acute territorial infarct. The calvarium and skull base are intact. Mastoid air cells and middle ear cavities are well aerated. There is mild mucosal thickening within the alveolar recess of the right maxillary sinus that may be odontogenic. CT angiogram neck: The aortic arch apex is normal. Origins of major aortic branches are widely patent. Common carotid arteries and carotid bifurcations are normal. No stenosis of the extracranial internal carotid arteries. The cervical segments of the vertebral arteries are patent. CT angiogram head: Intracranial internal carotid arteries are normal. The intradural vertebral artery segments and basilar artery are normal. Anterior, middle, and posterior cerebral artery complexes are normal. No intracranial large vessel occlusion. No identifiable aneurysm or high flow vascular lesion. The timing of contrast injection provides adequate opacification of the dural venous sinuses which are patent. Other: Soft tissues of the neck including the thyroid gland are normal. No pathologically enlarged cervical lymph nodes. Lung apices are clear. CT/CT angio head neck stroke IMPRESSION: Normal CT angiogram of the head and neck. No stenosis of the cervical carotid or vertebral arteries. No intracranial large vessel occlusion. No evidence of acute territorial infarct. No abnormal intracranial mass or enhancement. This critical result was discussed with Dr Puckett at 6:05 PM on 06/04/2023 and it was ascertained that the content and urgency of the report was understood at the time of direct communication.
--- NOTE | ~2023-06-04 | CT_ITS ---
EXAMINATION: CT HEAD WITHOUT CONTRAST CLINICAL INFORMATION: 32-year-old female with altered mental status COMPARISON: 04/12/2023 TECHNIQUE: Contiguous axial imaging was performed from the skull base to vertex without intravenous administration of contrast. This CT examination was performed using dose optimization techniques as appropriate, variously including the following: *Automated exposure control *Adjustment of mA and/or kV according to patient size (this includes techniques or standardized protocols for targeted exams where dose is matched to indication/reason for exam; i.e. extremities or head) *Use of iterative reconstruction technique DLP: 678 mGy-cm FINDINGS: There is no evidence of acute intracranial hemorrhage, masses or hemorrhagic or ischemic stroke. There are no masses or mass effect and no midline shift. Ventura to white matter differentiation is well preserved. There is no extra-axial collections or hydrocephalus. There is stable appearance of hypodensity involving vitreous chamfer of bilateral globes, suggestive for prior subretinal hemorrhages. CT/CT head/brain wo IV con IMPRESSION: No acute intracranial pathology.
[2023-06-04 14:47] VITALS: BP 210/135; BP 233/146; PULSE 94; PULSE 96; RESP 15; TEMP 36.3; O2SAT 98; O2SAT 99; BMI 30.2
--- NOTE | 2023-06-04 14:49 | ECG_ITS ---
Test Reason : AMS Blood Pressure : / mmHG Vent. Rate : 093 BPM Atrial Rate : 093 BPM P-R Int : 158 ms QRS Dur : 146 ms QT Int : 436 ms P-R-T Axes : 034 -09 061 degrees QTc Int : 542 ms Normal sinus rhythm Possible Left atrial enlargement Right bundle branch block Abnormal ECG When compared with ECG of 19-MAY-2023 14:45, No significant change was found Referred By: Kareem Kilgore Electronically Signed By:Vinny Vera
[2023-06-04 14:54] LABS: Glucose, Whole Blood 90 mg/dL (60-115)
[2023-06-04] MEDS: Labetalol HCL 100 MG/20 ML VIAL IVPUSH (15:02)
[2023-06-04 15:37] VITALS: BP 190/125; PULSE 84; RESP 13; O2SAT 97
[2023-06-04 15:52] LABS: MANUAL DIFF FLAG NO
[2023-06-04 15:54] LABS: Basophils Absolute Auto 0.1 X10*3/uL (0.0-0.2); Eosinophils Absolute Auto 0.2 X10*3/uL (0.0-0.4); Eosinophils Percent Auto 3.1 % (0-4); Hematocrit 27.4 % (37.0-47.0); Hemoglobin 8.9 g/dl (12.0-16.0); Imm Gran Abs Auto 0.03 X10*3/uL (0.00-0.03); Imm Gran Pct Auto 0.6 % (0.0-0.4); Lymphocytes Absolute Auto 0.6 X10*3/uL (1.2-4.9); Lymphocytes Percent Auto 12.1 % (20-40); Mean Corpuscular HGB Conc 32.5 g/dl (31.0-35.0); Mean Corpuscular Hemoglobin 30.4 pg (27.0-33.0); Mean Corpuscular Volume 93.5 fL (80.0-98.0); Mean Platelet Volume 11.9 fL (9.4-12.3); Monocytes Absolute Auto 0.3 X10*3/uL (0.1-1.2); Monocytes Percent Auto 7.1 % (2-11); Neutrophils Absolute Auto 3.6 x10*3/uL (2.0-8.3); Neutrophils Percent Auto 76.1 % (45-73); Platelet Count 150 X10*3/uL (160-400); Red Blood Count 2.93 X10*6/uL (4.20-5.50); Red Cell Distribution Width 17.4 % (11.0-16.0); White Blood Count 4.8 X10*3/uL (4.8-10.8)
[2023-06-04] MEDS: Labetalol HCL 100 MG/20 ML VIAL 10 MG IVPUSH (16:07)
[2023-06-04 16:11] LABS: Alanine Aminotransferase 24 U/L (0-31); Albumin Level 3.2 g/dL (3.5-5.0); Alkaline Phosphatase 172 U/L (39-117); Anion Gap 17 (12-20); Aspartate Amino Transferase 29 U/L (5-31); Bilirubin Total 1.5 mg/dL (0.0-1.0); Blood Urea Nitrogen 72 mg/dL (9-16); Calcium 8.4 mg/dL (8.4-10.2); Carbon Dioxide 17 mmol/L (22-29); Chloride 106 mmol/L (96-108); Creatinine Clr Calc Pharmacy 13.6; Estimated Glomerular Filt Rate 8; Glucose Random 92 mg/dL (60-115); Potassium 4.7 mmol/L (3.3-5.1); Sodium 135 mmol/L (135-145); Total Protein 7.6 g/dL (6.5-8.0)
[2023-06-04 16:15] LABS: Troponin-I High Sensitivity 19.6 ng/L (<3.5-17.0)
--- NOTE | 2023-06-04 16:15 | ED.AMS ---
HPI - Altered Mental Status General Chief Complaint: Altered Mental Status Stated Complaint: AMS PER EMS Source: family and EMS Mode of arrival: EMS Limitations: altered mental status History of Present Illness HPI narrative: Patient is a diabetic with renal failure on dialysis who presents with sudden onset change in mental status. Family states that they found the patient lying down but her eyes were rolling up into the back of her head. 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 MD complaint: altered mental status and decreased responsiveness Onset (ago): minute(s) Timing confirmed by: family member and other (EMS) Severity: severe Context: other (diabetes and HTN) Related Data Home Medications ?Medication ?Instructions ?Recorded ?Confirmed isosorbide mononitrate 30 mg 30 mg PO DAILY 03/11/23 05/19/23 tablet,extended release 24 hr lidocaine 5 % topical patch 1 patch topical DAILY 03/11/23 05/19/23 oxycodone 5 mg tablet 5 mg PO Q6H PRN severe pain 03/11/23 05/19/23 acetaminophen 325 mg tablet 650 mg PO Q4H PRN mild pain 03/20/23 05/19/23 cholecalciferol (vitamin D3) 50 50 mcg PO DAILY 03/20/23 05/19/23 mcg (2,000 unit) capsule carvedilol 25 mg tablet 12.5 mg PO BID 05/19/23 05/19/23 docusate sodium 100 mg capsule 100 mg PO DAILY PRN constipation 05/19/23 05/19/23 torsemide 20 mg tablet 40 mg PO BID@1200,1800 05/19/23 05/19/23 Previous Rx's ?Medication ?Instructions ?Recorded aspirin 81 mg tablet,delayed 81 mg PO DAILY #30 tabs 01/29/23 release off loading boot #1 ea 03/14/23 clonidine HCl 0.1 mg tablet 0.3 mg PO BID #60 tabs 03/28/23 hydralazine 100 mg tablet 50 mg (1/2 x 100 mg) PO TID #90 04/17/23 tabs doxycycline monohydrate 100 mg 100 mg PO Q12H #18 caps 05/24/23 capsule losartan 50 mg tablet 100 mg PO DAILY #30 tabs 05/24/23 nifedipine 90 mg tablet,extended 90 mg PO DAILY #30 tabs 05/24/23 release 24 hr Allergies Allergy/AdvReac Type Severity Reaction Status Date / Time morphine [MORPHINE] Allergy Intermediate Itching Verified 06/04/23 14:54 azithromycin [From Zithromax] Allergy Hives Verified 06/04/23 14:54 gabapentin Allergy Facial Verified 06/04/23 14:54 Swelling tramadol Allergy Facial Verified 06/04/23 14:54 Swelling vancomycin Allergy Anaphylaxis Verified 06/04/23 14:54 Review of Systems Review of Systems: Yes Unobtainable due to mental status Neurologic: Reports Sensory deficit (Neuro) FOR[facility], [facility] Past Medical History Medical History Hypertension End-stage renal disease (ESRD) Foot ulcer CKD (chronic kidney disease) Hypertension Anemia Diabetic foot Vomiting Renal failure Hypertension Hyperkalemia Metabolic acidosis HFrEF (heart failure with reduced ejection fraction) ESRD on dialysis Migraine Diabetic foot ulcer associated with type 2 diabetes mellitus Chronic pain Gastroparesis Non-compliance with renal dialysis Hypertensive emergency Diabetes ESRD needing dialysis Cardiomyopathy delivery delivered Anemia in chronic kidney disease (CKD) CKD (chronic kidney disease) Headache, migraine Abnormal finding on echocardiogram Elevated troponin Chest pain Acute worsening of stage 3 chronic kidney disease Generalized edema Sepsis Cellulitis Pleural effusion CHF (congestive heart failure) (~06/07/22) Tachycardia Atypical chest pain Bone infection PAD (peripheral artery disease) Severe anemia Cellulitis and abscess of foot DM foot ulcer Osteomyelitis test positive test positive Asthma Depression with anxiety Diabetic retinopathy Type 2 diabetes mellitus with hyperglycemia, with long-term current use of insulin Blind right eye Diabetes Back pain Surgical History 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 Family History Family History Mother Coronary artery disease Myocardial infarction Stroke Diabetes mellitus Father Myocardial infarction Social History Social History Household Members: Family Household Members Other:: Sister, [id number], nephew Housing: Apartment Do you presently have visiting nurse or other home services: No Unable to assess alcohol history related to: Unknown Alcohol intake: never 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 Patient Tobacco Use Status: Never used Tobacco e-Cigarette/Vaping Use: Never Used Second Hand Smoke Exposure: No Advance Directives: Yes Advance Directives on File: Yes Advance Directives Date on File: 03/08/20 service: No Current occupational status: unemployed and disabled Gender identity: Female Physical Exam ED Vital Signs: Vital Signs - 24 hr 06/04/23 14:47 06/04/23 15:37 Temperature 97.4 F Pulse Rate 94 84 Respiratory Rate 15 13 Blood Pressure 210/135 H 190/125 H Pulse Oximetry 98 97 Oxygen Delivery Method Room Air Room Air BMI result Body Mass Index 30.2 Const Other: female looking older than stated age arousable nonverbal Limitations: altered mental status HENMT Head: Yes normal to inspection Ears: external ears normal General nose exam: Normal external nose present Mouth: Normal oral and palatal mucosa present and oropharynx normal Throat: Yes posterior oropharynx normal Eyes Other: right eye blind, cataract Neck Neck: Yes normal visual inspection Chest Chest palpation & inspection: normal inspection of the chest Resp Auscultation: clear to auscultation bilaterally Cardio Jugular venous distension: no JVD Rate: regular rate Rhythm: regular rhythm Heart sounds: S1 normal heart sound present and S2 normal heart sound present GI Inspection: Yes normal to inspection Palpation (GI): Soft to palpation, nontender and No hepatosplenomegaly present Auscultation: normal bowel sounds General: Yes no CVA tenderness Back/Spine/Pelvis Back: no CVA tenderness Skin General skin exam: no rashes or lesions noted Neuro Other: movement all extremities Sensory Exam: Sensory deficit (Neuro) Extrem Other: bilateral toe amputation, old ulcers no drainage or pus Psych Other: unkept, no mental status Appearance: other Course Reevaluation(s) Reevaluation #1: Patient with altered mental status, likely htn urgency, seizure will admit Time: 16:39 Reevaluation #2: I spent 40 minutes of critical care, with interventions, assessments, speaking to patient, consultants, and family. Time: 16:39 Medications Administered Discontinued Medications Generic Name Dose Route Start Last Admin Trade Name Freq PRN Reason Stop Dose Admin Labetalol HCl 5 mg 06/04/23 14:49 06/04/23 15:02 Labetalol Hcl 100 Mg/20 Ml Vial IVPUSH 06/04/23 14:50 5 mg ONCE ONE Administration Labetalol HCl 10 mg 06/04/23 16:01 06/04/23 16:07 Labetalol Hcl 100 Mg/20 Ml Vial IVPUSH 06/04/23 16:02 10 mg ONCE ONE Administration Medical Decision Making Differential Diagnosis Differential Diagnoses: The differential diagnosis associated with the presentation includes (cerebral bleed, CVA, HTN urgency, encephalopathy seizure were all considered) Admission/Observation Consideration of admission/observation: Escalation of care including admission/observation considered (upon arrival patient considered for admission) Consult Healthcare Provider Management of the patient was discussed with: Hospitalist and Engineer [facility] (nephrology) Lab Data 06/04/23 15:49 06/04/23 15:49 Labs: Lab Results 06/04/23 06/04/23 Range/Units 14:50 15:49 WBC 4.8 (4.8-10.8) X10*3/uL RBC 2.93 L (4.20-5.50) X10*6/uL Hgb 8.9 L (12.0-16.0) g/dl Hct 27.4 L (37.0-47.0) % MCV 93.5 (80.0-98.0) fL MCH 30.4 (27.0-33.0) pg MCHC 32.5 (31.0-35.0) g/dl RDW 17.4 H (11.0-16.0) % Plt Count 150 L (160-400) X10*3/uL MPV 11.9 (9.4-12.3) fL Immature Gran % (Auto) 0.6 H (0.0-0.4) % Neut % (Auto) 76.1 H (45-73) % Lymph % (Auto) 12.1 L (20-40) % [place] % (Auto) 7.1 (2-11) % Eos % (Auto) 3.1 (0-4) % Baso % (Auto) 1.0 (0-2) % Lymph # (Auto) 0.6 L (1.2-4.9) X10*3/uL [place] # (Auto) 0.3 (0.1-1.2) X10*3/uL Eos # (Auto) 0.2 (0.0-0.4) X10*3/uL Baso # (Auto) 0.1 (0.0-0.2) X10*3/uL Abs Immat Gran (auto) 0.03 (0.00-0.03) X10*3/uL Absolute Neuts (auto) 3.6 (2.0-8.3) x10*3/uL Absolute Nucleated RBC 0.000 (0.0-0.012) X10*3/uL Nucleated RBC % (auto) 0.0 (0.0-0.2) /100WBC Sodium 135 (135-145) mmol/L Potassium 4.7 (3.3-5.1) mmol/L Chloride 106 (96-108) mmol/L Carbon Dioxide 17 L (22-29) mmol/L Anion Gap 17 (12-20) BUN 72 H (9-16) mg/dL Creatinine 6.15 H* (0.5-1.4) mg/dL Estim Creat Clear Calc 13.6 Estimated GFR 8 POC Glucose 90 (60-115) mg/dL Random Glucose 92 (60-115) mg/dL Calcium 8.4 (8.4-10.2) mg/dL Total Bilirubin 1.5 H (0.0-1.0) mg/dL AST 29 (5-31) U/L ALT 24 (0-31) U/L Alkaline Phosphatase 172 H (39-117) U/L Troponin I High Sens 19.6 H (<3.5-17.0) ng/L Total Protein 7.6 (6.5-8.0) g/dL Albumin 3.2 L (3.5-5.0) g/dL Independent Interpretation I performed an independent interpretation of an: EKG (sinus 93, RBBB, no st or twave changes) and CT Scan (brain: no bleed) Independent Historian Clinical information obtained from an independent historian. History obtained from or confirmed by: EMS and Other (family) External Record Review External record reviewed: Prior outpatient labs and Prior outpatient radiology Prescription Management I considered prescription management with: Antibiotic (no infection identified) Chronic Conditions Patient?s care impacted by: Diabetes and Hypertension Social Determinants Patient?s care significantly limited by Social Determinants of Health including: Low income Discharge Plan Discharge Clinical Impression: Altered mental status, Seizure, Malignant hypertensive urgency Patient Disposition: Admitted As Inpatient Prescriptions: No Action isosorbide mononitrate 30 mg tablet extended release 24 hr 30 mg PO DAILY lidocaine 5 % adhesive patch,medicated 1 patch topical DAILY oxycodone 5 mg tablet 5 mg PO Q6H PRN (Reason: severe pain) (DME) off loading boot Kit See Rx Instructions .Route Qty: 1 0RF Rx Instructions: As directed aspirin 81 mg Tablet,Delayed Release (Dr/Ec) 81 mg PO DAILY Qty: 30 0RF cholecalciferol (vitamin D3) 50 mcg (2,000 unit) capsule 50 mcg PO DAILY acetaminophen 325 mg tablet 650 mg PO Q4H PRN (Reason: mild pain) clonidine HCl 0.1 mg Tablet 0.3 mg PO BID Qty: 60 0RF Protocol: Hold for SBP< HOLD for SBP < : 90 hydralazine 100 mg tablet 50 mg PO TID Qty: 90 0RF torsemide 20 mg tablet 40 mg PO BID@1200,1800 docusate sodium 100 mg capsule 100 mg PO DAILY PRN (Reason: constipation) carvedilol 25 mg tablet 12.5 mg PO BID Rx Instructions: must administer with a meal/food losartan 50 mg Tablet 100 mg PO DAILY Qty: 30 0RF Protocol: Hold for SBP< HOLD for SBP < : 90 Rx Instructions: replaces prior dose of 50 mg daily doxycycline monohydrate 100 mg Capsule 100 mg PO Q12H Qty: 18 0RF nifedipine 90 mg Tablet Extended Release 24hr 90 mg PO DAILY Qty: 30 0RF Protocol: Hold for SBP< HOLD for SBP < : 90 Rx Instructions: replaces prior dose of 60 mg daily Print Language: Greek
[2023-06-04 17:02] VITALS: BP 172/128; PULSE 81; RESP 14; TEMP 36.3; O2SAT 98
--- NOTE | 2023-06-04 17:05 | PC.NURSE ---
patient is more awake and alert, not oriented to situation, asking for her cell phone, patient did not come in with cell phone. patient educated that her cell phone did not come in with her.
--- NOTE | 2023-06-04 17:22 | PC.NURSE ---
per patient family member, last known well time was 9am today
--- NOTE | 2023-06-04 17:28 | PM.IMHP ---
History of Present Illness Date of Service: 06/04/23 Attending physician on admission: Gildardo Bess Chief Complaint: ams 32-year-old female with history of ESRD on dialysis TTHSa (those noncompliant with sunday as she does not like to leave the house on sunday), [id number] 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 Per family, last known well time was around 9am. Early this afternoon found patient minimally responsive with eyes rolled in back of her head. No known history of seizures. No witnessed seizure activity. Pt is oriented to self only on my exam and is exhibiting expressive aphasia, unable to fully state her name and seems disoriented (however, has been makes requests to drink water and for pain medication per nursing). On arrival, bp 210/135 given 15mg IV labetalol with slight improvement to 172/128 on admission. Vitals otherwise stable. Hematology studies unremarkable. Has a stable normocytic anemia, no leukocytosis. Creatinine 6.15, BUN 72. Electrolytes normal except for CO2 17. Troponin 19.6, chronically elevated likely secondary to ESRD. Head CT negative for acute intracranial pathology. EKG shows NSR, rate 93, no ST/T-wave abnormality. In the ED, given 15 mg IV labetalol as previously noted. Patient will be admitted for further management of acute metabolic encephalopathy, possible expressive aphasia. Review of Systems Review of Systems: Yes Unobtainable due to mental status [facility] Medical History Hypertension End-stage renal disease (ESRD) Foot ulcer CKD (chronic kidney disease) Hypertension Anemia Diabetic foot Vomiting Renal failure Hypertension Hyperkalemia Metabolic acidosis HFrEF (heart failure with reduced ejection fraction) ESRD on dialysis Migraine Diabetic foot ulcer associated with type 2 diabetes mellitus Chronic pain Gastroparesis Non-compliance with renal dialysis Hypertensive emergency Diabetes ESRD needing dialysis Cardiomyopathy delivery delivered Anemia in chronic kidney disease (CKD) CKD (chronic kidney disease) Headache, migraine Abnormal finding on echocardiogram Elevated troponin Chest pain Acute worsening of stage 3 chronic kidney disease Generalized edema Sepsis Cellulitis Pleural effusion CHF (congestive heart failure) (~06/07/22) Tachycardia Atypical chest pain Bone infection PAD (peripheral artery disease) Severe anemia Cellulitis and abscess of foot DM foot ulcer Osteomyelitis test positive test positive Asthma Depression with anxiety Diabetic retinopathy Type 2 diabetes mellitus with hyperglycemia, with long-term current use of insulin Blind right eye Diabetes Back pain Family History Mother Coronary artery disease Myocardial infarction Stroke Diabetes mellitus Father Myocardial infarction Surgical History 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 Social History Household Members: Family Household Members Other:: Sister, [id number], nephew Housing: Apartment Do you presently have visiting nurse or other home services: No Unable to assess alcohol history related to: Unknown Alcohol intake: never 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 Patient Tobacco Use Status: Never used Tobacco e-Cigarette/Vaping Use: Never Used Second Hand Smoke Exposure: No Advance Directives: Yes Advance Directives on File: Yes Advance Directives Date on File: 03/08/20 service: No Current occupational status: unemployed and disabled Gender identity: Female Meds Allergies Allergy/AdvReac Type Severity Reaction Status Date / Time morphine [MORPHINE] Allergy Intermediate Itching Verified 06/04/23 14:54 azithromycin [From Zithromax] Allergy Hives Verified 06/04/23 14:54 gabapentin Allergy Facial Verified 06/04/23 14:54 Swelling tramadol Allergy Facial Verified 06/04/23 14:54 Swelling vancomycin Allergy Anaphylaxis Verified 06/04/23 14:54 Home Medications ?Medication ?Instructions ?Recorded ?Confirmed ?Last Taken ?Type isosorbide mononitrate 30 mg 30 mg PO DAILY 03/11/23 05/19/23 03/20/23 History tablet,extended release 24 hr lidocaine 5 % topical patch 1 patch topical DAILY 03/11/23 05/19/23 03/20/23 History oxycodone 5 mg tablet 5 mg PO Q6H PRN severe pain 03/11/23 05/19/23 03/20/23 History acetaminophen 325 mg tablet 650 mg PO Q4H PRN mild pain 03/20/23 05/19/23 Unknown History cholecalciferol (vitamin D3) 50 50 mcg PO DAILY 03/20/23 05/19/23 Unknown History mcg (2,000 unit) capsule carvedilol 25 mg tablet 12.5 mg PO BID 05/19/23 05/19/23 Unknown History docusate sodium 100 mg capsule 100 mg PO DAILY PRN constipation 05/19/23 05/19/23 Unknown History torsemide 20 mg tablet 40 mg PO BID@1200,1800 05/19/23 05/19/23 Unknown History Physical Exam Vital Signs and Narrative: Vital Signs: Last Vital Signs Temp 97.3 F 06/04/23 17:02 Pulse 81 06/04/23 17:02 Resp 14 06/04/23 17:02 BP 172/128 H 06/04/23 17:02 Pulse Ox 98 06/04/23 17:02 O2 Del Method Room Air 06/04/23 17:02 BMI result Body Mass Index 30.2 Constitutional - Awake and Alert, No apparent distress Eyes - PERRLA, EOMI Cardiovascular - S1S2, RRR, No edema Respiratory - Normal lung expansion, Normal respiratory effort, No respiratory distress, CTA bilaterally Gastrointestinal - NT / ND; +BS; No rebound or guarding Extremities - no calf tenderness bilaterally, no swelling Skin - Warm/Dry. Chronic dry stage 3 ulcer plantar surface R foot and chronic dry stage 2 ulcer plantar surface L foot without erythema or warmth Neurological - Alert & oriented to self only, expressive aphasia, legally blind, L pupil round and reactive to light, unable to participate in further CN exam due to mental status. Strength in tact and symmetric bue and ble Results Labs 06/04/23 15:49 06/04/23 15:49 Labs: Laboratory Results - last 24 hr 06/04/23 06/04/23 14:50 15:49 MCV 93.5 MCH 30.4 MCHC 32.5 RDW 17.4 H Plt Count 150 L MPV 11.9 Immature Gran % (Auto) 0.6 H Neut % (Auto) 76.1 H Lymph % (Auto) 12.1 L Iron % (Auto) 7.1 Eos % (Auto) 3.1 Baso % (Auto) 1.0 Lymph # (Auto) 0.6 L Iron # (Auto) 0.3 Eos # (Auto) 0.2 Baso # (Auto) 0.1 Abs Immat Gran (auto) 0.03 Absolute Neuts (auto) 3.6 Absolute Nucleated RBC 0.000 Nucleated RBC % (auto) 0.0 Anion Gap 17 Estim Creat Clear Calc 13.6 Estimated GFR 8 POC Glucose 90 Random Glucose 92 Calcium 8.4 Total Bilirubin 1.5 H AST 29 ALT 24 Alkaline Phosphatase 172 H Troponin I High Sens 19.6 H Total Protein 7.6 Albumin 3.2 L Imaging Radiologist's Impressions: Impressions Head CT 06/04/23 15:17 IMPRESSION: No acute intracranial pathology. 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 Was unable to fully express name to me but has been asking nursing for water and pain medications as well as for her cell phone #Acute metabolic encephalopathy -?hypertensive encephalopathy, ?new onset seizure with post ictal state, ?CVA -Head CT negative for acute intracranial abnormality. CTA head/neck negative -MRI brain ordered -given 15mg IV labetalol in ed. BP on admission 172/128. Will give PO antihypertensives to prevent lowering bp too fast -seizure precautions -bedside swallow eval, stroke edu, neuro checks -neurology consult -pt, ot, donor services specialist #ESRD dialysis T,TH, ?sat -nephrology consult, due for HD tomorrow. She is not uremic -Creat 6.15, BUN 72. No lyte abnormality except for CO2 17 -follow renal function, lytes #Hypertensive urgency -given 15mg IV labetalol in ED. Resume PO meds to gradually lower bp -follow bp #Acute on chronic metabolic acidosis -due to above -CO2 17. VBG pending -650 mg sodium bicarbonate t.i.d. p.o. -nephrology consult # chronic diabetic left foot ulcer -MRI negative for osteomyelitis during last admission -Discharged 05/23 on 2 week course doxycycline per ID for cellulitis. Complete doxycyline -wound appears clean/dry without evidence of acute infection -horticultural specialty grower inside consult # [id number] type 2 diabetes -POC glucose, diabetic diet -Humalog on sliding scale #HFrEF with chronic hypoxemic respiratory failure -Resume HD as above for management of volume -continue po diuretics -continue 4 L supplemental O2, home dose #CAD/Cardiomyopathy -continue ASA, beta-mohamud, isosorbide # diabetic polyneuropathy -continue home pain medications DVT prophylaxis-heparin Full code Patient requires inpatient stay at least 2 midnights for management acute metabolic encephalopathy of unclear etiology with uncontrolled hypertensive urgency requiring IV antihypertensive agents, resumption of dialysis and expert consultation Quality Stroke Does the patient have a stroke diagnosis?: No VTE Prior VTE?: No VTE Risk Level:: Medical - moderate - high VTE Device Contraindication: Treatment Not Indicated VTE Drug Contraindication: N/A - Med Ordered
[2023-06-04] MEDS: iohexoL 350 MG/ML 100 ML INFUS..BTL IV (17:45)
[2023-06-04] MEDS: HYDROmorphone HCl 1 MG/ML SYRINGE IVPUSH (17:52)
--- NOTE | 2023-06-04 18:03 | PC.NURSE ---
patient passed bedside swallow eval
--- NOTE | 2023-06-04 18:05 | PC.NURSE ---
patient is alert and oriented to self, and situation in this moment. patient refused straight cath. VSS, patient has bilat foot wounds that she is being treated for. patient medicated per MAR states she has pain all over her body.
[2023-06-04 18:15] VITALS: BP 208/125; PULSE 82; RESP 15; TEMP 36.2; O2SAT 95
--- NOTE | 2023-06-04 18:20 | MHC.EDTECH ---
Patient refused vbg lab ,RN aware .
[2023-06-04 18:40] LABS: Cholesterol 114 mg/dL (<200); HDL Cholesterol 41 mg/dL (>40); LDL Cholesterol Calculated 62 mg/dL (<100); Triglycerides 56 mg/dL (<150)
[2023-06-04 19:19] LABS: VBG Base Excess -7.4 mmol/L; VBG HCO3 17 mmol/L (22-26); VBG pCO2 33 mmHg; VBG pH 7.32 (7.32-7.43); VBG pO2 54 mmHg
[2023-06-04 19:25] LABS: Venous Blood Gas Refer to POC result
[2023-06-04] MEDS: Aspirin 325 MG TABLET PO (19:40)
[2023-06-04] MEDS: cloNIDine HCL 0.1 MG TABLET 0.3 MG PO (19:40)
[2023-06-04] MEDS: NIFEdipine ER 30 MG TAB.ER.24 60 MG PO (19:40)
--- NOTE | 2023-06-04 19:43 | PC.NURSE ---
pt is axox4 +neuros. pt speaking full clear sentences at this time. pt refuses heparin; pt educated on importance of this med. pt refused MRI to [facility]; hold ativan per JOVON. pt tolerated po meds with water nad. resp even and unlabored. nsr on monitor with prolonged QT. pt requesting this RN call sister and request for phone. no other concerns at this time. call moore within reach.
--- NOTE | 2023-06-04 20:40 | PHA.MEDREC ---
Addendum entered by Marly Campo [facility] 06/05/23 16:20: Added in medications that were filled at pharmacy and patient should be taking with unknown last taken dates. Original Note: Pharmacy Consult ? Medication Reconciliation Pharmacy has completed the medication reconciliation. Unable to communicate with patient. Spoke to sister Josy via phone and sister said that pt is taking only 1 medication and that is nifedipine 90 mg once a day (last dose yesterday). Confirmed 3x with sister that patient only takes 1 medication.
--- NOTE | 2023-06-04 21:03 | PM.EVENT ---
Event Note Date of Service: 06/04/23 Event Note: Unable to addend H&P at this time. Per patient's sister, she has only been taking nifedipine 90 mg daily. However, see last discharge summary for full list of medications that patient was previously prescribed Time Spent With Patient Time: Total time managing care of this patient today ____ minutes.
[2023-06-04 21:49] VITALS: BP 183/107; PULSE 74; RESP 16; TEMP 36.3; O2SAT 98
--- NOTE | 2023-06-04 22:04 | PC.NURSE ---
Dr. Sewell aware of bp and pain.
--- NOTE | 2023-06-04 22:05 | PC.NURSE ---
family at bedside pt communicating/interacting. nad. +neuros. pt at baseline per family.
[2023-06-04 23:55] VITALS: BP 201/122; PULSE 72; RESP 18; TEMP 36.9; O2SAT 95
--- NOTE | 2023-06-05 | EEG_ITS ---
This is a 16-channel EEG with an EKG lead. The patient is reported awake and drowsy during the tracing. Background EEG rhythm is medium amplitude diffusely and theta range with a couple of episodes of generalize delta range, sharply contoured waveforms. Cardiac lead did not reveal any significant abnormality. Photic stimulation and hyperventilation were not performed. IMPRESSION: Mildly abnormal EEG suggestive of tendency for seizure disorder. MD ROSEMARIE Razo/PAULINA / [id number]
[2023-06-05 00:04] LABS: Glucose, Whole Blood 84 mg/dL (60-115)
--- NOTE | 2023-06-05 00:09 | MHC.EDTECH ---
Patient said she was hungry ,blood sugar check ,Patient had a ham sandwich for snack ,Patient said she is not able to give urine sample at this time ,Refused bladder scan ,rn aware .
[2023-06-05 03:39] VITALS: BP 162/95; PULSE 71; RESP 15; TEMP 36.3; O2SAT 95
--- NOTE | 2023-06-05 05:28 | PC.NURSE ---
Dr. Sewell aware of pt pain and BP. pt now resting comfortably nad. call moore within reach.
--- NOTE | 2023-06-05 05:48 | MHC.EDTECH ---
Addendum entered by Rashad Cordoba 06/05/23 06:09: Dr. Sewell aware. Original Note: KIRIT ALEJANDRO AWARE THAT PATIENT DID NOT VOID ALL NIGHT ,AND REFUSED BLADDER SCAN .
--- NOTE | 2023-06-05 07:20 | MHC.EDTECH ---
This pct attempted to draw labs byt the patient said nobody is drawing labs from me. RN Aware
[2023-06-05 07:23] VITALS: BP 118/63; PULSE 73; RESP 20; TEMP 36.6; O2SAT 98
[2023-06-05 07:50] LABS: Glucose, Whole Blood 121 mg/dL (60-115)
--- NOTE | 2023-06-05 08:22 | PC.NURSE ---
pt refusing heparin, states she always refuses that, wanted to talk with Dr Bess about pain meds, Dr Bess to bedside and no new orders at this time, pt states chronic b/l foot pain, alert, speech clear
--- NOTE | 2023-06-05 08:40 | MHC.CM.PN ---
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 Patient receives 48 OPS MANAGER hours/week, [facility], home O2 and HD from [facility]. Home/resume said services vs STR pending PT eval is the tentative plan and CM has initiated and will follow for dc planning. Patient's Brother/Michael is the HCP and the PCP is Dr. Abdon Beard.
--- NOTE | 2023-06-05 09:40 | PC.NURSE ---
dialysis ready for pt. pt refused morning meds and did not give a reason, awaiting transport to bring pt,
--- NOTE | 2023-06-05 09:55 | PM.NEUROCN ---
History of Present Illness Data of Consult Service Date: 06/05/23 Primary Care Provider: Unknown Physician HPI Reason for consult: Encephalopathy 32 years old woman with complex underlying medical history including end-stage renal disease and infection was brought to hospital with change in mental status and was noted to have episode of unresponsiveness over. She was not known to have seizure disorder. When I saw her she was curled up and was resistant to intra pain or over her body. Review of Systems Review of Systems: Difficult to do a limited PMFSH Past Medical History Medical History Hypertension End-stage renal disease (ESRD) Foot ulcer CKD (chronic kidney disease) Hypertension Anemia Diabetic foot Vomiting Renal failure Hypertension Hyperkalemia Metabolic acidosis HFrEF (heart failure with reduced ejection fraction) ESRD on dialysis Migraine Diabetic foot ulcer associated with type 2 diabetes mellitus Chronic pain Gastroparesis Non-compliance with renal dialysis Hypertensive emergency Diabetes ESRD needing dialysis Cardiomyopathy delivery delivered Anemia in chronic kidney disease (CKD) CKD (chronic kidney disease) Headache, migraine Abnormal finding on echocardiogram Elevated troponin Chest pain Acute worsening of stage 3 chronic kidney disease Generalized edema Sepsis Cellulitis Pleural effusion CHF (congestive heart failure) (~06/07/22) Tachycardia Atypical chest pain Bone infection PAD (peripheral artery disease) Severe anemia Cellulitis and abscess of foot DM foot ulcer Osteomyelitis test positive test positive Asthma Depression with anxiety Diabetic retinopathy Type 2 diabetes mellitus with hyperglycemia, with long-term current use of insulin Blind right eye Diabetes Back pain Family History Family History Mother Coronary artery disease Myocardial infarction Stroke Diabetes mellitus Father Myocardial infarction Surgical History Surgical History 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 Social History Social History Household Members: Family Household Members Other:: Sister, [id number], nephew Housing: Apartment Do you presently have visiting nurse or other home services: No Unable to assess alcohol history related to: Unknown Alcohol intake: never 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 Patient Tobacco Use Status: Never used Tobacco e-Cigarette/Vaping Use: Never Used Second Hand Smoke Exposure: No Advance Directives: Yes Advance Directives on File: Yes Advance Directives Date on File: 03/08/20 Nutrition Risks: No Nutritional Risk service: No Current occupational status: unemployed and disabled Gender identity: Female Meds Allergies Allergy/AdvReac Type Severity Reaction Status Date / Time morphine [MORPHINE] Allergy Intermediate Itching Verified 06/04/23 14:54 azithromycin [From Zithromax] Allergy Hives Verified 06/04/23 14:54 gabapentin Allergy Facial Verified 06/04/23 14:54 Swelling tramadol Allergy Facial Verified 06/04/23 14:54 Swelling vancomycin Allergy Anaphylaxis Verified 06/04/23 14:54 Active Medications: Current Medications Acetaminophen (Acetaminophen 325 Mg Tablet) 650 mg PO Q6H PRN PRN Reason: Pain, Mild (Pain Scale 1-3) Aspirin (Aspirin Enteric Coated 81 Mg Tablet.Dr) 81 mg PO DAILY [facility] Last Admin: 06/05/23 09:39 Dose: Not Given Atorvastatin Calcium (Atorvastatin Calcium 80 Mg Tablet) 80 mg PO DAILY [facility] Last Admin: 06/05/23 09:39 Dose: Not Given Heparin Sodium (Porcine) (Heparin Sodium,Porcine 5,000 Unit/Ml Vial) 5,000 unit SUBCUT Q12H [facility] Last Admin: 06/05/23 07:29 Dose: Not Given Nifedipine (Nifedipine Er 90 Mg Tab.Er.24) 90 mg PO DAILY [facility]; Protocol Last Admin: 06/05/23 09:39 Dose: Not Given Ondansetron HCl (Ondansetron Hcl 4 Mg/2 Ml Vial) 4 mg IVPUSH Q8H PRN PRN Reason: Nausea and Vomiting Senna (Sennosides 8.6 Mg Tablet) 17.2 mg PO BEDTIME PRN PRN Reason: Constipation Sodium Bicarbonate (Sodium Bicarbonate 650 Mg Tablet) 650 mg PO TID [facility] Last Admin: 06/05/23 09:39 Dose: Not Given Sodium Chloride (0.9 % Sodium Chloride Flush 3 Ml Syringe) 3 ml IVFLUSH QSHIFT [facility] Last Admin: 06/05/23 09:39 Dose: Not Given Physical Exam Vital Signs: Vital Signs: Last Vital Signs Temp 97.9 F 06/05/23 07:23 Pulse 73 06/05/23 07:23 Resp 20 06/05/23 07:23 BP 118/63 06/05/23 07:23 Pulse Ox 98 06/05/23 07:23 O2 Del Method Room Air 06/05/23 07:23 BMI result Body Mass Index 30.2 Neuro: Other: Limited examination. She was resistant to exam. She was alert and awake with normal spontaneity of speech fluency comprehension and depressed affect. There was no obvious focal arm or leg weakness. She refused to open her eyes and examination was limited. Results Labs 06/04/23 15:49 06/04/23 15:49 Labs: Short CBC 06/04/23 Range/Units 15:49 WBC 4.8 (4.8-10.8) X10*3/uL Hgb 8.9 L (12.0-16.0) g/dl Hct 27.4 L (37.0-47.0) % Plt Count 150 L (160-400) X10*3/uL BMP 06/04/23 15:49 Sodium 135 Potassium 4.7 Chloride 106 Carbon Dioxide 17 L BUN 72 H Creatinine 6.15 H* Calcium 8.4 Liver Function 06/04/23 Range/Units 15:49 Total Bilirubin 1.5 H (0.0-1.0) mg/dL AST 29 (5-31) U/L ALT 24 (0-31) U/L Alkaline Phosphatase 172 H (39-117) U/L Albumin 3.2 L (3.5-5.0) g/dL Head CT revealed mild microvascular ischemic changes and CTA did not reveal any vascular lesion. Assessment and Plan (1) Seizure: Status: Acute 32 years old woman with complex underlying medical history including end-stage renal disease and infection head change in mental status was seizure-like symptoms. Diagnosis of seizure disorder is difficult to make at this time. I would recommend a routine EEG to look for any epileptic tendency. Other was, treatment of renal disease and infection is recommended. Procedures Date of Service Date of Service: 06/05/23
--- NOTE | 2023-06-05 10:43 | MHC.CM.PN ---
CORRECTION!! Patient had [facility] in the past (not active with them) and they cannot accept Patient back.
--- NOTE | 2023-06-05 12:29 | PM.CNNEP ---
History of Present Illness Reason for Consult Consult date: 06/06/23 Reason for consult: ESRD Chief Complaint Chief complaint: acute metabolic encephalopathy, ?cva, ?seizure History of Present Illness Narrative: 32-year-old ESRD patient with history of noncompliance, missing many of her dialysis treatments, chronic hypoxemic respiratory failure on 4L supplemental O2 at baseline, cardiomyopathy, congestive heart failure, PID, with recurrent hospitalizations due to missed dialysis, who presents to the ED due to family's concerns of altered mental status. She normally dialyzes Sunday, , Sunday, but misses her treatment quite frequently. She has history of diabetes, neuropathy, retinopathy, hypertension, and chronic foot ulcers. She is status post a TMA. [facility] Past Medical History Medical History Hypertension End-stage renal disease (ESRD) Foot ulcer CKD (chronic kidney disease) Hypertension Anemia Diabetic foot Vomiting Renal failure Hypertension Hyperkalemia Metabolic acidosis HFrEF (heart failure with reduced ejection fraction) ESRD on dialysis Migraine Diabetic foot ulcer associated with type 2 diabetes mellitus Chronic pain Gastroparesis Non-compliance with renal dialysis Hypertensive emergency Diabetes ESRD needing dialysis Cardiomyopathy delivery delivered Anemia in chronic kidney disease (CKD) CKD (chronic kidney disease) Headache, migraine Abnormal finding on echocardiogram Elevated troponin Chest pain Acute worsening of stage 3 chronic kidney disease Generalized edema Sepsis Cellulitis Pleural effusion CHF (congestive heart failure) (~06/07/22) Tachycardia Atypical chest pain Bone infection PAD (peripheral artery disease) Severe anemia Cellulitis and abscess of foot DM foot ulcer Osteomyelitis test positive test positive Asthma Depression with anxiety Diabetic retinopathy Type 2 diabetes mellitus with hyperglycemia, with long-term current use of insulin Blind right eye Diabetes Back pain Family History Family History Mother Coronary artery disease Myocardial infarction Stroke Diabetes mellitus Father Myocardial infarction Surgical History Surgical History 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 Social History Social History Household Members: Significant Other and Family Household Members Other:: Sister, [id number], nephew Housing: Apartment Do you presently have visiting nurse or other home services: No Unable to assess alcohol history related to: Unknown Alcohol intake: never 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 Patient Tobacco Use Status: Never used Tobacco e-Cigarette/Vaping Use: Never Used Second Hand Smoke Exposure: No Advance Directives Date on File: 03/08/20 service: No Current occupational status: unemployed and disabled Gender identity: Female Meds Allergies Allergy/AdvReac Type Severity Reaction Status Date / Time morphine [MORPHINE] Allergy Intermediate Itching Verified 06/04/23 14:54 azithromycin [From Zithromax] Allergy Hives Verified 06/04/23 14:54 gabapentin Allergy Facial Verified 06/04/23 14:54 Swelling tramadol Allergy Facial Verified 06/04/23 14:54 Swelling vancomycin Allergy Anaphylaxis Verified 06/04/23 14:54 Active Medications: Current Medications Acetaminophen (Acetaminophen 325 Mg Tablet) 650 mg PO Q6H PRN PRN Reason: Pain, Mild (Pain Scale 1-3) Aspirin (Aspirin Enteric Coated 81 Mg Tablet.) 81 mg PO DAILY [facility] Last Admin: 06/05/23 09:39 Dose: Not Given Atorvastatin Calcium (Atorvastatin Calcium 80 Mg Tablet) 80 mg PO DAILY [facility] Last Admin: 06/05/23 09:39 Dose: Not Given Heparin Sodium (Porcine) (Heparin Sodium,Porcine 5,000 Unit/Ml Vial) 5,000 unit SUBCUT Q12H [facility] Last Admin: 06/05/23 07:29 Dose: Not Given Nifedipine (Nifedipine Er 90 Mg Tab.Er.24) 90 mg PO DAILY [facility]; Protocol Last Admin: 06/05/23 09:39 Dose: Not Given Ondansetron HCl (Ondansetron Hcl 4 Mg/2 Ml Vial) 4 mg IVPUSH Q8H PRN PRN Reason: Nausea and Vomiting Senna (Sennosides 8.6 Mg Tablet) 17.2 mg PO BEDTIME PRN PRN Reason: Constipation Sodium Bicarbonate (Sodium Bicarbonate 650 Mg Tablet) 650 mg PO TID [facility] Last Admin: 06/05/23 09:39 Dose: Not Given Sodium Chloride (0.9 % Sodium Chloride Flush 3 Ml Syringe) 3 ml IVFLUSH QSHIFT [facility] Last Admin: 06/05/23 09:39 Dose: Not Given Home Medications ?Medication ?Instructions ?Recorded ?Confirmed ?Last Taken ?Type carvedilol 12.5 mg tablet 12.5 mg PO BID 06/05/23 06/05/23 Unknown History cholecalciferol (vitamin D3) 50 50 mcg PO DAILY 06/05/23 06/05/23 Unknown History mcg (2,000 unit) capsule docusate sodium 100 mg capsule 100 mg PO DAILY PRN constipation 06/05/23 06/05/23 Unknown History hydralazine 100 mg tablet 50 mg PO TID 06/05/23 06/05/23 Unknown History isosorbide mononitrate 30 mg 30 mg PO QAM 06/05/23 06/05/23 Unknown History tablet,extended release 24 hr losartan 50 mg tablet 50 mg PO DAILY 06/05/23 06/05/23 Unknown History torsemide 20 mg tablet 40 mg PO BID 06/05/23 06/05/23 Unknown History Physical Exam Vital Signs: Last Vital Signs Temp 97.9 F 06/05/23 07:23 Pulse 73 06/05/23 07:23 Resp 20 06/05/23 07:23 BP 118/63 06/05/23 07:23 Pulse Ox 98 06/05/23 07:23 O2 Del Method Room Air 06/05/23 07:23 BMI result Body Mass Index 30.2 Appearance: Alert. Oriented X3. tired cvs: rrr, [id number] . res: clear to auscultation ,no rhonchii or wheezing abd: no rebound or guarding ,nt, bs present. neuro: axo3 , moves all ext ext pulses present , no cyanosis. Results Lab Results 06/04/23 15:49 06/04/23 15:49 Lab results: Chemistry 06/04/23 15:49 Sodium 135 Potassium 4.7 Carbon Dioxide 17 L BUN 72 H Creatinine 6.15 H* Calcium 8.4 Hematology 06/04/23 15:49 WBC 4.8 Hgb 8.9 L Plt Count 150 L Assessment and Plan (1) End-stage renal disease (ESRD): Status: Acute (2) Malignant hypertensive urgency: Status: Acute Plan 1. End-stage renal disease with dialyzer today and then going back on Sunday, , Sunday schedule. 2. Diabetic foot wounds. Continue follow up with vascular and ID regarding antibiotics and possible need for additional surgery. 3. Dialysis noncompliance. Stressed to her the importance of coming to her dialysis treatment team. 4. htn urgency, has improved today RECOMMENDATIONS: Include continue routine medications. HD Sunday, , Sunday schedule. Procedures Date of Service Date of Service: 06/06/23
--- NOTE | 2023-06-05 13:23 | MHC.SPEECHCO ---
Pt off the floor for dialysis. EQUITY MANAGER will re-attempted this afternoon.
--- NOTE | 2023-06-05 13:32 | HO.PM.IMPN ---
Subjective Subjective Date of Service: 06/07/23 Interval History: Acute metabolic encephalopathy Review of Systems Mental status seems to be improving No fever chills Physical Exam Vital Signs: Vital Signs: Last Vital Signs Temp 97.9 F 06/05/23 07:23 Pulse 73 06/05/23 07:23 Resp 20 06/05/23 07:23 BP 118/63 06/05/23 07:23 Pulse Ox 98 06/05/23 07:23 O2 Del Method Room Air 06/05/23 07:23 BMI result Body Mass Index 30.2 Appearance: Alert.? Oriented X3.? cvs: rrr, [id number] res: clear to auscultation ,no rhonchii or wheezing abd: no rebound or guarding ,nt, bs present. ext pulses present , no cyanosis, ch foot wounds neuro: axo3 , nonfocal. Objective Data Active Medications Acetaminophen (Acetaminophen 325 Mg Tablet) 650 mg PO Q6H PRN PRN Reason: Pain, Mild (Pain Scale 1-3) Aspirin (Aspirin Enteric Coated 81 Mg Tablet.) 81 mg PO DAILY [facility] Last Admin: 06/05/23 09:39 Dose: Not Given Documented By: LEAH Non-Admin Reason: See Note Atorvastatin Calcium (Atorvastatin Calcium 80 Mg Tablet) 80 mg PO DAILY [facility] Last Admin: 06/05/23 09:39 Dose: Not Given Documented By: LEAH Non-Admin Reason: Patient Refused Heparin Sodium (Porcine) (Heparin Sodium,Porcine 5,000 Unit/Ml Vial) 5,000 unit SUBCUT Q12H [facility] Last Admin: 06/05/23 07:29 Dose: Not Given Documented By: LEAH Non-Admin Reason: See Note Nifedipine (Nifedipine Er 90 Mg Tab.Er.24) 90 mg PO DAILY [facility]; Protocol Last Admin: 06/05/23 09:39 Dose: Not Given Documented By: LEAH Non-Admin Reason: Patient Refused Ondansetron HCl (Ondansetron Hcl 4 Mg/2 Ml Vial) 4 mg IVPUSH Q8H PRN PRN Reason: Nausea and Vomiting Senna (Sennosides 8.6 Mg Tablet) 17.2 mg PO BEDTIME PRN PRN Reason: Constipation Sodium Bicarbonate (Sodium Bicarbonate 650 Mg Tablet) 650 mg PO TID [facility] Last Admin: 06/05/23 09:39 Dose: Not Given Documented By: LEAH Non-Admin Reason: Patient Refused Sodium Chloride (0.9 % Sodium Chloride Flush 3 Ml Syringe) 3 ml IVFLUSH QSHIFT [facility] Last Admin: 06/05/23 09:39 Dose: Not Given Documented By: LEAH Non-Admin Reason: Patient Refused Labs 06/04/23 15:49 06/04/23 15:49 Labs: Laboratory Results - last 24 hr 06/04/23 06/04/23 06/04/23 14:50 15:49 19:11 MCV 93.5 MCH 30.4 MCHC 32.5 RDW 17.4 H Plt Count 150 L MPV 11.9 Immature Gran % (Auto) 0.6 H Neut % (Auto) 76.1 H Lymph % (Auto) 12.1 L Bonner % (Auto) 7.1 Eos % (Auto) 3.1 Baso % (Auto) 1.0 Lymph # (Auto) 0.6 L Bonner # (Auto) 0.3 Eos # (Auto) 0.2 Baso # (Auto) 0.1 Abs Immat Gran (auto) 0.03 Absolute Neuts (auto) 3.6 Absolute Nucleated RBC 0.000 Nucleated RBC % (auto) 0.0 VBG pH 7.32 VBG pCO2 33 VBG pO2 54 VBG HCO3 17 L VBG O2 Saturation 78.0 VBG Base Excess -7.4 Anion Gap 17 Estim Creat Clear Calc 13.6 Estimated GFR 8 POC Glucose 90 Random Glucose 92 Calcium 8.4 Total Bilirubin 1.5 H AST 29 ALT 24 Alkaline Phosphatase 172 H Troponin I High Sens 19.6 H Total Protein 7.6 Albumin 3.2 L Triglycerides 56 Cholesterol 114 LDL Cholesterol, Calc 62 HDL Cholesterol 41 06/04/23 06/05/23 23:59 07:20 MCV MCH MCHC RDW Plt Count MPV Immature Gran % (Auto) Neut % (Auto) Lymph % (Auto) Bonner % (Auto) Eos % (Auto) Baso % (Auto) Lymph # (Auto) Bonner # (Auto) Eos # (Auto) Baso # (Auto) Abs Immat Gran (auto) Absolute Neuts (auto) Absolute Nucleated RBC Nucleated RBC % (auto) VBG pH VBG pCO2 VBG pO2 VBG HCO3 VBG O2 Saturation VBG Base Excess Anion Gap Estim Creat Clear Calc Estimated GFR POC Glucose 84 121 H Random Glucose Calcium Total Bilirubin AST ALT Alkaline Phosphatase Troponin I High Sens Total Protein Albumin Triglycerides Cholesterol LDL Cholesterol, Calc HDL Cholesterol Assessment and Plan (1) Malignant hypertensive urgency: Status: Acute (2) Altered mental status: Status: Acute Assessment and Plan: 32-year-old female with history of ESRD on dialysis TTHSa (those noncompliant with sunday as she does not like to leave the house on sunday), [id number] 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 Was unable to fully express name to me but has been asking nursing for water and pain medications as well as for her cell phone Acute metabolic encephalopathy-? multifactorial(hypertensive encephalopathy, ?new onset seizure with post ictal state, ?CVA) Head CT negative for acute intracranial abnormality. 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 She is not uremic -Creat 6.15, BUN 72. No lyte abnormality except for CO2 17 -follow renal function, lytes going for hD. Htn: bp improving as per note- she is on procardia ? not sure if still using home bp meds -need to clearify with pharmacy Acute on chronic metabolic acidosis-due to above(esrd) CO2 17. VBG -ph seems fine. continue 650 mg sodium bicarbonate t.i.d. p.o. nephrology consult,Hd today chronic diabetic left foot ulcer -MRI negative for osteomyelitis during last admission -Discharged 05/23 on 2 week course doxycycline per ID for cellulitis. Complete doxycyline -wound appears clean/dry without evidence of acute infection -decker operator consult [id number] type 2 diabetes -POC glucose, diabetic diet -Humalog on sliding scale HFrEF with chronic hypoxemic respiratory failure -Resume HD as above for management of volume -continue po diuretics -continue 4 L supplemental O2, home dose CAD/Cardiomyopathy -continue ASA, beta-mohamud, isosorbide # diabetic polyneuropathy -continue home pain medications DVT prophylaxis-heparin Full code Patient ongoing hospitlisation need for management acute metabolic encephalopathy of unclear etiology with uncontrolled hypertensive urgency requiring IV antihypertensive agents, resumption of dialysis and expert consultation Quality Stroke Does the patient have a stroke diagnosis?: No VTE Prior VTE?: No VTE Risk Level:: Medical - moderate - high VTE Device Contraindication: Treatment Not Indicated VTE Drug Contraindication: N/A - Med Ordered
[2023-06-05 13:49] VITALS: BP 107/58; PULSE 72; RESP 17; O2SAT 98
--- NOTE | 2023-06-05 13:57 | MHC.SLORD ---
Speech Language Pathology Order Status: ADA ACCOMMODATION CONSULTANT returned to find the Pt in tears, crying out that she was in pain. When asked location she replied, My body! . Pt was inconsolable and unable to participate in formal examination. Per record review any Aphasia symptoms appear to be transient or resolved. ADA ACCOMMODATION CONSULTANT will continue to follow.
--- NOTE | 2023-06-05 14:57 | PC.NURSE ---
Dr Bess to bedside and will put in for an oxycodone for the pt, states she is at her baseline, sr on monitor, will medicate when ordered
--- NOTE | 2023-06-05 16:39 | PC.NURSE ---
pt will yell out when her name is called but refusing to answer questions to this RN. eyes opening.
--- NOTE | 2023-06-05 16:51 | MHC.EDTECH ---
This pct attempted to do vitals but patient refused. RN Aware
--- NOTE | 2023-06-05 18:11 | PC.NURSE ---
attempted to get pt to MRI. pt responded when this RN spoke her name then refused to answer this RNs questions if she will go to MRI or not. asked if pt was in pain and she did not answer.
--- NOTE | 2023-06-05 18:11 | PC.NURSE ---
pt began yelling out NURSE when this RN entered the room pt reported that she wanted to speak to the Dr. would not inform this RN why she wanted to speak with the dr or anything this RN could assist with. Shelly SIGALA made aware of pts request
--- NOTE | 2023-06-05 19:13 | PC.NURSE ---
Assumed care of pt. Pt initially sleeping on arrival of this RN. Pt woke and requested pain medication. Plan to administer held medication per orders. No other acute distress noted at this time.
[2023-06-05] MEDS: oxyCODONE HCl Immed Release 5 MG TABLET PO (19:24)
--- NOTE | 2023-06-05 19:45 | MHC.EDTECH ---
Assumed care at 1900
[2023-06-05 20:00] VITALS: BP 132/79; PULSE 88; RESP 13; TEMP 36.2; O2SAT 96
--- NOTE | 2023-06-05 20:39 | MHC.EDTECH ---
Addendum entered by Jules Reese 06/05/23 20:39: At 2015 Original Note: Transferred care to [facility]
--- NOTE | 2023-06-05 21:35 | PC.NURSE ---
Pt continuing to refuse assessments involving radiology and other testing, also refusing medications per charting, except for pain medications. MD Sewell aware.
[2023-06-06] VITALS (8 sets, daily range): BP systolic 115–146; BP diastolic 61–85; PULSE 76–84; RESP 16–20; TEMP 36.2–36.9; O2SAT 92–97
[2023-06-06 08:05] LABS: Glucose, Whole Blood 185 mg/dL (60-115)
--- NOTE | 2023-06-06 09:06 | HO.WOUND ---
Wound Consult: Initial 32yr old female admitted to [facility] on 06/04/23 - See progress notes and H&P for detailed history. Wound consult placed for Chronic Left and Right Plantar Wound - present on admission. Recent frequent admissions to [facility] - see chart for details. Left Plantar Foot Etiology: Diabetic Foot wound Wound Bed: dry marbled wound bed with adherent yellow green slough pale pink tissue noted Drainage / Odor: no odor noted - no drainage noted - Alginate stuck to wound bed Edges: ? callused Pao wound: Calloused and undermining noted No Induration, No Fluctuance, No Erythema, No Warmth Pain: Denies reports neuropathy Goals of Treatment: Hydrogel to donate moisture to allow for autolytic debridement Right Foot Etiology: Diabetic Foot wound Wound Bed: pale pink - tissue after cleansing Drainage / Odor: no odor noted - dried drainage noted on dressing adherent to wound bed Edges: ? callused Pao wound: Callused and undermining noted - No Induration, No Fluctuance, No Erythema, No Warmth Pain: Denies reports neuropathy Goals of Treatment: ? Durafiber AG packing Recommend follow up out patient Wound Clinic at [address] [place] [address] and to call for an appointment at time of discharge. [phone].? Recommendations: 1. Turn and Reposition every 2 hours and as needed for patient comfort. 2. Off Load all bony prominences with use of pillows and heel boots as needed. 3. Provide adequate and supplemental nutrition. 4. Maintain blood glucose levels per Providers orders. 5. Right Foot - Cleanse and irrigate with NS, Pat dry. Apply cut to size Durafiber AG to wound bed , cover with dry gauze, ABD pad and gauze wrap. Change every other day. Off Load Pressure. 6. Left Foot - Cleanse and irrigate with NS, Pat dry. Apply generous amount of hydrogel to wound bed , cover with dry gauze, ABD pad and gauze wrap. Change every other day. Off Load Pressure. Recommend follow up out patient Wound Clinic at [address] [place] [address] and to call for an appointment at time of discharge. [phone].?
[2023-06-06] MEDS: NIFEdipine ER 90 MG TAB.ER.24 PO (09:15)
[2023-06-06] MEDS: Aspirin Enteric Coated 81 MG TABLET.DR PO (09:15)
[2023-06-06] MEDS: Torsemide 20 MG TABLET 40 MG PO (09:15)
[2023-06-06] MEDS: Atorvastatin Calcium 80 MG TABLET PO (09:15)
[2023-06-06] MEDS: Isosorbide Mononitrate 30 MG TAB.ER.24H PO (09:15)
--- NOTE | 2023-06-06 10:16 | MHC.SLORD ---
Speech Language Pathology Order Status: Per MD, SUPERVISOR ESTIMATOR AND DRAFTER consult not needed at this time. Please re-refer if needed.
--- NOTE | 2023-06-06 12:41 | HO.PM.IMPN ---
Subjective Subjective Date of Service: 06/06/23 Interval History: mental status back to baseline Physical Exam Vital Signs: Vital Signs: Last Vital Signs Temp 97.9 F 06/06/23 11:17 Pulse 81 06/06/23 11:17 Resp 20 06/06/23 11:17 BP 146/85 H 06/06/23 11:17 Pulse Ox 97 06/06/23 11:17 O2 Del Method Room Air 06/06/23 11:17 BMI result Body Mass Index 30.2 Appearance: Alert.? Oriented X3.? cvs: rrr, [id number] res: clear to auscultation ,no rhonchii or wheezing abd: no rebound or guarding ,nt, bs present. ext pulses present , no cyanosis, ch foot wounds neuro: axo3 , nonfocal. DFUs as pictured in wound care note Objective Data Active Medications Acetaminophen (Acetaminophen 325 Mg Tablet) 650 mg PO Q6H PRN PRN Reason: Pain, Mild (Pain Scale 1-3) Aspirin (Aspirin Enteric Coated 81 Mg Tablet.) 81 mg PO DAILY [facility] Last Admin: 06/06/23 09:15 Dose: 81 mg Documented By: YOLIS Atorvastatin Calcium (Atorvastatin Calcium 80 Mg Tablet) 80 mg PO DAILY [facility] Last Admin: 06/06/23 09:15 Dose: 80 mg Documented By: YOLIS Docusate Sodium (Docusate Sodium 100 Mg Capsule) 100 mg PO DAILY PRN PRN Reason: constipation Glucose (Glucose Gel 15 Gm Gel..Gram.) 15 gm PO Q15M PRN; Protocol PRN Reason: per Hypoglycemia Standing Ord. Heparin Sodium (Porcine) (Heparin Sodium,Porcine 5,000 Unit/Ml Vial) 5,000 unit SUBCUT Q12H [facility] Last Admin: 06/06/23 10:24 Dose: Not Given Documented By: YOLIS Non-Admin Reason: Patient Refused Dextrose (D10) 250 mls @ 750 mls/hr IV Q15M PRN; Protocol PRN Reason: per Hypoglycemia Standing Ord. Insulin Human Lispro (Insulin Lispro 100 Unit/Ml 3 Ml Vial) 0 unit SUBCUT QIDACHS [facility]; Protocol Last Admin: 06/06/23 11:42 Dose: Not Given Documented By: YOLIS Non-Admin Reason: Patient Refused Isosorbide Mononitrate (Isosorbide Mononitrate 30 Mg Tab.Er.24h) 30 mg PO DAILY [facility]; Protocol Last Admin: 06/06/23 09:15 Dose: 30 mg Documented By: YOLIS Lorazepam (Lorazepam 2 Mg/Ml Vial) 2 mg IVPUSH ONCE PRN PRN Reason: mri Nifedipine (Nifedipine Er 90 Mg Tab.Er.24) 90 mg PO DAILY [facility]; Protocol Last Admin: 06/06/23 09:15 Dose: 90 mg Documented By: YOLIS Ondansetron HCl (Ondansetron Hcl 4 Mg/2 Ml Vial) 4 mg IVPUSH Q8H PRN PRN Reason: Nausea and Vomiting Senna (Sennosides 8.6 Mg Tablet) 17.2 mg PO BEDTIME PRN PRN Reason: Constipation Sodium Bicarbonate (Sodium Bicarbonate 650 Mg Tablet) 650 mg PO TID [facility] Last Admin: 06/06/23 10:29 Dose: Not Given Documented By: YOLIS Non-Admin Reason: Patient Refused Sodium Chloride (0.9 % Sodium Chloride Flush 3 Ml Syringe) 3 ml IVFLUSH QSHIFT [facility] Last Admin: 06/06/23 10:28 Dose: Not Given Documented By: YOLIS Non-Admin Reason: Patient Refused Torsemide (Torsemide 20 Mg Tablet) 40 mg PO BIDWM [facility]; Protocol Last Admin: 06/06/23 09:15 Dose: 40 mg Documented By: YOLIS Vitamin D (Cholecalciferol (Vitamin D3) 25 Mcg Tablet) 50 mcg PO DAILY [facility] Last Admin: 06/06/23 10:28 Dose: Not Given Documented By: YOLIS Non-Admin Reason: Patient Refused Labs 06/04/23 15:49 06/04/23 15:49 Labs: Laboratory Results - last 24 hr 06/06/23 08:01 POC Glucose 185 H Assessment and Plan (1) Malignant hypertensive urgency: Status: Acute (2) Altered mental status: Status: Acute Assessment and Plan: 32F PMH ESRD on dialysis TTHSa (though noncompliant with sunday as she does not like to leave the house on sunday), [id number] 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 multifactorial(hypertensive encephalopathy, ?new onset seizure with post ictal state) Head CT negative for acute intracranial abnormality. CTA head/neck negative MRI brain ordered -refused added EEG blood pressure improving mental status is at baseline ESRD dialysis T,TH, ?sat hD. HTN continue imdur, nifedipine Acute on chronic metabolic acidosis-due to above(esrd) continue 650 mg sodium bicarbonate t.i.d. p.o. chronic diabetic left foot ulcer MRI negative for osteomyelitis during last admission Discharged 05/23 on 2 week course doxycycline per ID for cellulitis. Complete doxycyline wound appears clean/dry without evidence of acute infection wound care appreciated - continue local care (see note) [id number] type 2 diabetes POC glucose, diabetic diet Humalog on sliding scale HFrEF with chronic hypoxemic respiratory failure HD as above for management of volume continue po diuretics CAD/Cardiomyopathy continue ASA, beta-mohamud, isosorbide diabetic polyneuropathy continue home pain medications DVT prophylaxis-heparin Full code reason for continued hospitalization:awaiting eeg Quality Stroke Does the patient have a stroke diagnosis?: No VTE Prior VTE?: No VTE Risk Level:: Medical - moderate - high VTE Device Contraindication: Treatment Not Indicated VTE Drug Contraindication: N/A - Med Ordered
[2023-06-06] MEDS: HYDROmorphone HCl 0.5 MG/0.5 ML SYRINGE IVPUSH ×3 (13:39→21:37)
--- NOTE | 2023-06-06 14:35 | PC.NURSE ---
patient refusing assessments, POCs, and medications. MD notified.
[2023-06-06 16:14] LABS: Glucose, Whole Blood 166 mg/dL (60-115)
[2023-06-06] MEDS: 0.9 % Sodium Chloride Flush 3 ML SYRINGE IVFLUSH (17:44)
[2023-06-06 20:52] LABS: Glucose, Whole Blood 159 mg/dL (60-115)
[2023-06-07] MEDS: HYDROmorphone HCl 0.5 MG/0.5 ML SYRINGE IVPUSH ×6 (01:59→22:09)
[2023-06-07 03:46] VITALS: BP 129/72; PULSE 83; RESP 18; TEMP 37; O2SAT 95
[2023-06-07 07:24] LABS: Glucose, Whole Blood 108 mg/dL (60-115)
[2023-06-07 07:39] VITALS: BP 138/79; PULSE 80; RESP 18; TEMP 36.1; O2SAT 96
[2023-06-07] MEDS: 0.9 % Sodium Chloride Flush 3 ML SYRINGE IVFLUSH ×3 (10:25→23:56)
--- NOTE | 2023-06-07 10:39 | P.DS_ITS ---
DS: Providers Provider Date of Service: 06/08/23 Date of admission: 06/04/23 18:19 Primary care physician: Abdon Beard MD Consults: 06/04/23 18:20 Consult to Neurology Routine Consulting Provider: [facility] Reason for consultation: expressive aphasia/encephalopathy, ?CVA, ?seizure 06/05/23 11:59 Consult to Nephrology Routine Consulting Provider: Fernando Siddiqi Reason for consultation: esrd,uncontrolled htn Has provider been notified: No 06/05/23 21:05 Consult to Wound Care Routine Reason for consultation: foot wounds DS: Diagnosis Discharge Diagnosis (1) End-stage renal disease (ESRD): Status: Acute (2) Malignant hypertensive urgency: Status: Acute DS: Summary Hospital Course Hospital Course: from initial hpi: 32-year-old female with history of ESRD on dialysis TTHSa (those noncompliant with sunday as she does not like to leave the house on sunday), [id number] 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 Per family, last known well time was around 9am. Early this afternoon found patient minimally responsive with eyes rolled in back of her head. No known history of seizures. No witnessed seizure activity. Pt is oriented to self only on my exam and is exhibiting expressive aphasia, unable to fully state her name and seems disoriented (however, has been makes requests to drink water and for pain medication per nursing). On arrival, bp 210/135 given 15mg IV labetalol with slight improvement to 172/128 on admission. Vitals otherwise stable. Hematology studies unremarkable. Has a stable normocytic anemia, no leukocytosis. Creatinine 6.15, BUN 72. Electrolytes normal except for CO2 17. Troponin 19.6, chronically elevated likely secondary to ESRD. Head CT negative for acute intracranial pathology. EKG shows NSR, rate 93, no ST/T-wave abnormality. In the ED, given 15 mg IV labetalol as previously noted. Patient will be admitted for further management of acute metabolic encephalopathy, possible expressive aphasia. hospital course: Patient was admitted for acute metabolic encephalopathy likely due to hypertensive encephalopathy due to noncompliance. Initially worked up for CVA though unlikely, patient refused MRI, CTA head and neck was negative. Was seen by neuro recommended EEG which showed predisposition to seizure, recommended to start on keppra 250mg bid. Patient's mental status is back to baseline with improved blood pressure. Compliance is strongly recommended. For end-stage renal disease she was continued on hemodialysis. For acute on chronic metabolic acidosis she was continued on sodium bicarb. For chronic diabetic left foot ulcer she was seen by wound care who recommended local care, please see discharge instructions. For chronic systolic CHF and chronic hypoxic respiratory failure she remained stable. For coronary disease/cardiomyopathy was continued on aspirin, beta-mohamud, Imdur. discharge was delayed due to nausea, patient now witnessed to be tolerating solid foods, will proceed with planned discharge home. Time Attestation Discharge Coordination Time (in mins): 35 Quality: Safe Use of Opioids Does Pt have an Active Cancer Diagnosis on the Problem List?: No Quality: Stroke Does the patient have a stroke diagnosis?: No Physical Exam Vital Signs: Vital Signs: Last Vital Signs Temp 97.0 F 06/07/23 07:39 Pulse 80 06/07/23 07:39 Resp 18 06/07/23 07:39 BP 138/79 06/07/23 07:39 Pulse Ox 96 06/07/23 07:39 O2 Del Method Room Air 06/07/23 07:39 BMI result Body Mass Index 30.2 Appearance: Alert.? Oriented X3.? cvs: rrr, [id number] res: clear to auscultation ,no rhonchii or wheezing abd: no rebound or guarding ,nt, bs present. ext pulses present , no cyanosis, ch foot wounds neuro: axo3 , nonfocal. DFUs as pictured in wound care note DS: Data Data Completed and Pending Completed studies during hospitalization [Text1]: Procedures Detachment at Right Foot, Partial 1st Ray, Open Approach (03/01/20) Detachment at Right Foot, Partial 2nd Ray, Open Approach (03/01/20) Detachment at Right Foot, Partial 3rd Ray, Open Approach (03/01/20) Detachment at Right Foot, Partial 4th Ray, Open Approach (03/01/20) Detachment at Right Foot, Partial 5th Ray, Open Approach (03/01/20) Drainage of Right Pleural Cavity, Percutaneous Approach (01/14/21) Excision of Left Foot Skin, External Approach (03/10/23) Excision of Stomach, Pylorus, Via Natural or Artificial Opening Endoscopic, Diagnostic (08/27/22) Fluoroscopy of Superior Vena Cava, Guidance (08/14/22) Insertion of Infusion Device into Right Atrium, Percutaneous Approach (08/14/22) Insertion of Infusion Device into Superior Vena Cava, Percutaneous Approach (01/14/21) Insertion of Tunneled Vascular Access Device into Chest Subcutaneous Tissue and Fascia, Percutaneous Approach (08/14/22) Performance of Urinary Filtration, Intermittent, Less than 6 Hours Per Day (05/19/23) Removal of Infusion Device from Great Vessel, External Approach (01/14/21) Transfusion of Nonautologous Red Blood Cells into Peripheral Vein, Percutaneous Approach (04/22/22) Labs on day of discharge: Laboratory Results - last 24 hr 06/06/23 06/06/23 06/07/23 16:10 20:41 06:54 POC Glucose 166 H 159 H 108 Discharge Plan Discharge Anticipated Discharge Date/Time: 06/07/23 10:37 Patient Disposition: Home, Self-Care Discharge Diagnosis: esrd, malignant hypertension Referrals: Liv Malik MD [Physician] - 1 Week Abdon Beard MD [Primary Care Provider] - 1 Week Discharge Medications: New levetiracetam [Keppra] 250 mg tablet 250 mg PO BID Qty: 180 0RF Continued (DME) off loading boot Kit See Rx Instructions .Route Qty: 1 0RF Rx Instructions: As directed losartan 50 mg tablet 50 mg PO DAILY carvedilol 12.5 mg tablet 12.5 mg PO BID torsemide 20 mg tablet 40 mg PO BID isosorbide mononitrate 30 mg tablet extended release 24 hr 30 mg PO QAM hydralazine 100 mg tablet 50 mg PO TID docusate sodium 100 mg capsule 100 mg PO DAILY PRN (Reason: constipation) cholecalciferol (vitamin D3) 50 mcg (2,000 unit) capsule 50 mcg PO DAILY nifedipine 90 mg Tablet Extended Release 24hr 90 mg PO DAILY Qty: 30 0RF Protocol: Hold for SBP< HOLD for SBP < : 90 Rx Instructions: replaces prior dose of 60 mg daily Discharge Orders: Discharge Order (Routine); Ordered 06/09/23 Ordered By: Jacinto Cavazos Diet: Diabetic diet Activity on Discharge: As tolerated Stand Alone Forms: Patient Portal Discharge page Print Language: French Activity Restrictions/Additional Instructions: Topical Wound Care Recommendations: Right Foot - Cleanse and irrigate with NS, Pat dry. Apply cut to size Durafiber AG to wound bed , cover with dry gauze, ABD pad and gauze wrap. Change every other day. Off Load Pressure. Left Foot - Cleanse and irrigate with NS, Pat dry. Apply generous amount of hydrogel to wound bed , cover with dry gauze, ABD pad and gauze wrap. Change every other day. Off Load Pressure. Recommend follow up out patient [facility] at [address] [place] [id number] and to call for an appointment at time of discharge. [phone].? Care Plan Goals: bp control Health Concerns: ams, high bp Plan of Treatment: take meds as prescribed, follow up with neuro and nephro, starting on luis enrique Assessment: see above
--- NOTE | 2023-06-07 10:40 | MHC.CM.PN ---
Patient has been medically cleared for dc to home today, self care. Last IMM addressed on 06/05/2023.Sister will transport.
--- NOTE | 2023-06-07 12:43 | P.PNIM_ITS ---
Subjective Subjective Date of Service: 06/07/23 Interval History: nasuea Physical Exam 2 Vital Signs: Vital Signs: Last Vital Signs Temp 97.0 F 06/07/23 07:39 Pulse 80 06/07/23 07:39 Resp 18 06/07/23 07:39 BP 138/79 06/07/23 07:39 Pulse Ox 96 06/07/23 07:39 O2 Del Method Room Air 06/07/23 07:39 BMI result Body Mass Index 30.2 Appearance: Alert.? Oriented X3.? cvs: rrr, [id number] res: clear to auscultation ,no rhonchii or wheezing abd: no rebound or guarding ,nt, bs present. ext pulses present , no cyanosis, ch foot wounds neuro: axo3 , nonfocal. DFUs as pictured in wound care note Objective Data Active Medications Acetaminophen (Acetaminophen 325 Mg Tablet) 650 mg PO Q6H PRN PRN Reason: Pain, Mild (Pain Scale 1-3) Aspirin (Aspirin Enteric Coated 81 Mg Tablet.) 81 mg PO DAILY [facility] Last Admin: 06/07/23 12:31 Dose: Not Given Documented By: BRENDA Non-Admin Reason: Patient Refused Atorvastatin Calcium (Atorvastatin Calcium 80 Mg Tablet) 80 mg PO DAILY [facility] Last Admin: 06/07/23 12:31 Dose: Not Given Documented By: BRENDA Non-Admin Reason: Patient Refused Docusate Sodium (Docusate Sodium 100 Mg Capsule) 100 mg PO DAILY PRN PRN Reason: constipation Glucose (Glucose Gel 15 Gm Gel..Gram.) 15 gm PO Q15M PRN; Protocol PRN Reason: per Hypoglycemia Standing Ord. Heparin Sodium (Porcine) (Heparin Sodium,Porcine 5,000 Unit/Ml Vial) 5,000 unit SUBCUT Q12H [facility] Last Admin: 06/07/23 06:19 Dose: Not Given Documented By: ANTREA Non-Admin Reason: Patient Refused Hydromorphone HCl (Hydromorphone Hcl 0.5 Mg/0.5 Ml Syringe) 0.5 mg IVPUSH Q4H PRN; Protocol PRN Reason: moderate pain Last Admin: 06/07/23 10:25 Dose: 0.5 mg Documented By: BRENDA Dextrose (D10) 250 mls @ 750 mls/hr IV Q15M PRN; Protocol PRN Reason: per Hypoglycemia Standing Ord. Insulin Human Lispro (Insulin Lispro 100 Unit/Ml 3 Ml Vial) 0 unit SUBCUT QIDACHS [facility]; Protocol Last Admin: 06/07/23 07:56 Dose: Not Given Documented By: BRENDA Non-Admin Reason: poc= 108 Isosorbide Mononitrate (Isosorbide Mononitrate 30 Mg Tab.Er.24h) 30 mg PO DAILY [facility]; Protocol Last Admin: 06/07/23 12:32 Dose: Not Given Documented By: BRENDA Non-Admin Reason: Patient Refused Lorazepam (Lorazepam 2 Mg/Ml Vial) 2 mg IVPUSH ONCE PRN PRN Reason: mri Nifedipine (Nifedipine Er 90 Mg Tab.Er.24) 90 mg PO DAILY [facility]; Protocol Last Admin: 06/07/23 12:32 Dose: Not Given Documented By: BRENDA Non-Admin Reason: Patient Refused Ondansetron HCl (Ondansetron Hcl 4 Mg/2 Ml Vial) 4 mg IVPUSH Q8H PRN PRN Reason: Nausea and Vomiting Oxycodone HCl (Oxycodone Hcl Immed Release 5 Mg Tablet) 5 mg PO Q6H PRN PRN Reason: moderate pain Senna (Sennosides 8.6 Mg Tablet) 17.2 mg PO BEDTIME PRN PRN Reason: Constipation Sodium Bicarbonate (Sodium Bicarbonate 650 Mg Tablet) 650 mg PO TID [facility] Last Admin: 06/07/23 12:32 Dose: Not Given Documented By: BRENDA Non-Admin Reason: Patient Refused Sodium Chloride (0.9 % Sodium Chloride Flush 3 Ml Syringe) 3 ml IVFLUSH QSHIFT [facility] Last Admin: 06/07/23 10:25 Dose: 3 ml Documented By: BRENDA Torsemide (Torsemide 20 Mg Tablet) 40 mg PO BIDWM [facility]; Protocol Last Admin: 06/07/23 12:31 Dose: Not Given Documented By: BRENDA Non-Admin Reason: Patient Refused Vitamin D (Cholecalciferol (Vitamin D3) 25 Mcg Tablet) 50 mcg PO DAILY [facility] Last Admin: 06/07/23 12:32 Dose: Not Given Documented By: BRENDA Non-Admin Reason: Patient Refused Labs 06/04/23 15:49 06/04/23 15:49 Labs: Laboratory Results - last 24 hr 06/06/23 06/06/23 06/07/23 16:10 20:41 06:54 POC Glucose 166 H 159 H 108 Assessment and Plan (1) Malignant hypertensive urgency: Status: Acute (2) Altered mental status: Status: Acute Assessment and Plan: 32F PMH ESRD on dialysis TTHSa (though noncompliant with sunday as she does not like to leave the house on sunday), [id number]-flomhqczl 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 multifactorial(hypertensive encephalopathy, ?new onset seizure with post ictal state) Head CT negative for acute intracranial abnormality. CTA head/neck negative MRI brain ordered -refused added EEG blood pressure improving mental status is at baseline ESRD dialysis T,TH, ?sat hD. HTN continue imdur, nifedipine Acute on chronic metabolic acidosis-due to above(esrd) continue 650 mg sodium bicarbonate t.i.d. p.o. chronic diabetic left foot ulcer MRI negative for osteomyelitis during last admission Discharged 05/23 on 2 week course doxycycline per ID for cellulitis. Complete doxycyline wound appears clean/dry without evidence of acute infection wound care appreciated - continue local care (see note) [id number]-[id number] type 2 diabetes POC glucose, diabetic diet Humalog on sliding scale HFrEF with chronic hypoxemic respiratory failure HD as above for management of volume continue po diuretics CAD/Cardiomyopathy continue ASA, beta-mohamud, isosorbide diabetic polyneuropathy continue home pain medications DVT prophylaxis-heparin Full code reason for continued hospitalization:nausea Quality Stroke Does the patient have a stroke diagnosis?: No VTE Prior VTE?: No VTE Risk Level:: Medical - moderate - high VTE Device Contraindication: Treatment Not Indicated VTE Drug Contraindication: N/A - Med Ordered
[2023-06-07 13:11] LABS: Glucose, Whole Blood 134 mg/dL (60-115)
[2023-06-07] MEDS: ondansetron HCL 4 MG/2 ML VIAL IVPUSH (14:21)
[2023-06-07 14:22] VITALS: BP 103/59; PULSE 88; RESP 20; TEMP 36.3; O2SAT 96
[2023-06-07 15:15] VITALS: BP 110/59; PULSE 83; RESP 12; TEMP 36.2; O2SAT 95
--- NOTE | 2023-06-07 15:53 | P.PNNP_ITS ---
Subjective Subjective Date of Service: 06/07/23 Interval history: pt seen and examined Physical Exam 2 Vital Signs: Vital Signs: Last Vital Signs Temp 97.2 F 06/07/23 15:15 Pulse 83 06/07/23 15:15 Resp 12 06/07/23 15:15 BP 110/59 L 06/07/23 15:15 Pulse Ox 95 06/07/23 15:15 O2 Del Method Room Air 06/07/23 15:15 BMI result Body Mass Index 30.2 Appearance: Alert. Oriented X3. tired cvs: rrr, [id number] . res: clear to auscultation ,no rhonchii or wheezing abd: no rebound or guarding ,nt, bs present. neuro: axo3 , moves all ext ext pulses present , no cyanosis. Objective Data Labs 06/04/23 15:49 06/04/23 15:49 Labs: Laboratory Results - last 24 hr 06/06/23 06/06/23 06/07/23 16:10 20:41 06:54 POC Glucose 166 H 159 H 108 06/07/23 13:03 POC Glucose 134 H Procedures Date of Service Date of Service: 06/07/23 Assessment & Plan Assessment and plan (1) End-stage renal disease (ESRD): Status: Acute Plan 1. End-stage renal disease with dialyzer today and then going back on Sunday, , Sunday schedule. 2. Diabetic foot wounds. Continue follow up with vascular 3. Dialysis noncompliance. Stressed to her the importance of coming to her dialysis treatment team. 4. htn urgency, has improved today RECOMMENDATIONS: Include continue routine medications. HD Sunday, , Sunday schedule. Time Spent With Patient Time: Total time managing care of this patient today ____ minutes. Progress Note: Quality Stroke Does the patient have a stroke diagnosis?: No
[2023-06-07 17:00] LABS: Glucose, Whole Blood 191 mg/dL (60-115)
[2023-06-07 19:52] VITALS: BP 135/68; PULSE 87; RESP 16; TEMP 36.3; O2SAT 96
[2023-06-07] MEDS: levETIRAcetam 250 MG TABLET PO (21:19)
[2023-06-08] VITALS: BP 135/74; PULSE 90; RESP 18; TEMP 36.6; O2SAT 99
[2023-06-08] MEDS: HYDROmorphone HCl 0.5 MG/0.5 ML SYRINGE IVPUSH ×6 (03:16→23:51)
[2023-06-08 04:00] VITALS: BP 164/88; PULSE 85; RESP 20; TEMP 37; O2SAT 95
[2023-06-08 07:18] VITALS: BP 178/91; PULSE 100; RESP 18; TEMP 36.6; O2SAT 97
[2023-06-08] MEDS: ondansetron HCL 4 MG/2 ML VIAL IVPUSH ×2 (07:18→15:38)
[2023-06-08] MEDS: 0.9 % Sodium Chloride Flush 3 ML SYRINGE IVFLUSH ×3 (07:25→23:53)
[2023-06-08 07:37] LABS: Glucose, Whole Blood 88 mg/dL (60-115)
--- NOTE | 2023-06-08 09:01 | HO.PM.IMPN ---
Subjective Subjective Date of Service: 06/08/23 Interval History: nasuea Physical Exam Vital Signs: Vital Signs: Last Vital Signs Temp 97.8 F 06/08/23 07:18 Pulse 100 06/08/23 07:18 Resp 18 06/08/23 07:18 BP 178/91 H 06/08/23 07:18 Pulse Ox 97 06/08/23 07:18 O2 Del Method Room Air 06/08/23 07:18 BMI result Body Mass Index 30.2 Appearance: Alert. Oriented X3. tired cvs: rrr, [id number] . res: clear to auscultation ,no rhonchii or wheezing abd: no rebound or guarding ,nt, bs present. neuro: axo3 , moves all ext ext pulses present , no cyanosis. Objective Data Active Medications Acetaminophen (Acetaminophen 325 Mg Tablet) 650 mg PO Q6H PRN PRN Reason: Pain, Mild (Pain Scale 1-3) Aspirin (Aspirin Enteric Coated 81 Mg Tablet.) 81 mg PO DAILY [facility] Last Admin: 06/07/23 12:31 Dose: Not Given Documented By: BRENDA Non-Admin Reason: Patient Refused Atorvastatin Calcium (Atorvastatin Calcium 80 Mg Tablet) 80 mg PO DAILY [facility] Last Admin: 06/07/23 12:31 Dose: Not Given Documented By: BRENDA Non-Admin Reason: Patient Refused Docusate Sodium (Docusate Sodium 100 Mg Capsule) 100 mg PO DAILY PRN PRN Reason: constipation Glucose (Glucose Gel 15 Gm Gel..Gram.) 15 gm PO Q15M PRN; Protocol PRN Reason: per Hypoglycemia Standing Ord. Heparin Sodium (Porcine) (Heparin Sodium,Porcine 5,000 Unit/Ml Vial) 5,000 unit SUBCUT Q12H [facility] Last Admin: 06/08/23 07:09 Dose: Not Given Documented By: BRENDA Non-Admin Reason: Patient Refused Hydromorphone HCl (Hydromorphone Hcl 0.5 Mg/0.5 Ml Syringe) 0.5 mg IVPUSH Q4H PRN; Protocol PRN Reason: moderate pain Last Admin: 06/08/23 07:18 Dose: 0.5 mg Documented By: BRENDA Dextrose (D10) 250 mls @ 750 mls/hr IV Q15M PRN; Protocol PRN Reason: per Hypoglycemia Standing Ord. Insulin Human Lispro (Insulin Lispro 100 Unit/Ml 3 Ml Vial) 0 unit SUBCUT QIDACHS [facility]; Protocol Last Admin: 06/08/23 07:25 Dose: Not Given Documented By: BRENDA Non-Admin Reason: poc=88 Isosorbide Mononitrate (Isosorbide Mononitrate 30 Mg Tab.Er.24h) 30 mg PO DAILY [facility]; Protocol Last Admin: 06/07/23 12:32 Dose: Not Given Documented By: BRENDA Non-Admin Reason: Patient Refused Levetiracetam (Levetiracetam 250 Mg Tablet) 250 mg PO BID [facility] Last Admin: 06/07/23 21:19 Dose: 250 mg Documented By: PARAG Lorazepam (Lorazepam 2 Mg/Ml Vial) 2 mg IVPUSH ONCE PRN PRN Reason: mri Nifedipine (Nifedipine Er 90 Mg Tab.Er.24) 90 mg PO DAILY [facility]; Protocol Last Admin: 06/07/23 12:32 Dose: Not Given Documented By: BRENDA Non-Admin Reason: Patient Refused Ondansetron HCl (Ondansetron Hcl 4 Mg/2 Ml Vial) 4 mg IVPUSH Q8H PRN PRN Reason: Nausea and Vomiting Last Admin: 06/08/23 07:18 Dose: 4 mg Documented By: BRENDA Oxycodone HCl (Oxycodone Hcl Immed Release 5 Mg Tablet) 5 mg PO Q6H PRN PRN Reason: moderate pain Senna (Sennosides 8.6 Mg Tablet) 17.2 mg PO BEDTIME PRN PRN Reason: Constipation Sodium Bicarbonate (Sodium Bicarbonate 650 Mg Tablet) 650 mg PO TID [facility] Last Admin: 06/07/23 21:19 Dose: Not Given Documented By: PARAG Non-Admin Reason: Patient Refused Sodium Chloride (0.9 % Sodium Chloride Flush 3 Ml Syringe) 3 ml IVFLUSH QSHIFT [facility] Last Admin: 06/08/23 07:25 Dose: 3 ml Documented By: BRENDA Torsemide (Torsemide 20 Mg Tablet) 40 mg PO BIDWM [facility]; Protocol Last Admin: 06/07/23 17:03 Dose: Not Given Documented By: BRENDA Non-Admin Reason: Patient Refused Vitamin D (Cholecalciferol (Vitamin D3) 25 Mcg Tablet) 50 mcg PO DAILY [facility] Last Admin: 06/07/23 12:32 Dose: Not Given Documented By: BRENDA Non-Admin Reason: Patient Refused Labs 06/04/23 15:49 06/04/23 15:49 Labs: Laboratory Results - last 24 hr 06/07/23 06/07/23 06/08/23 13:03 16:21 07:16 POC Glucose 134 H 191 H 88 Assessment and Plan (1) Malignant hypertensive urgency: Status: Acute (2) Altered mental status: Status: Acute Assessment and Plan: 32F PMH ESRD on dialysis TTHSa (though noncompliant with sunday as she does not like to leave the house on sunday), [id number] 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 multifactorial(hypertensive encephalopathy, ?new onset seizure with post ictal state) Head CT negative for acute intracranial abnormality. CTA head/neck negative MRI brain ordered -refused EEG - underlying risk for seizures, d/w neuro - recommended starting keppra 250mg bid blood pressure improving mental status is at baseline ESRD dialysis T,TH, ?sat hD. HTN continue imdur, nifedipine Acute on chronic metabolic acidosis-due to above(esrd) continue 650 mg sodium bicarbonate t.i.d. p.o. chronic diabetic left foot ulcer MRI negative for osteomyelitis during last admission Discharged 05/23 on 2 week course doxycycline per ID for cellulitis. Complete doxycyline wound appears clean/dry without evidence of acute infection wound care appreciated - continue local care (see note) [id number]-mefzveumd type 2 diabetes POC glucose, diabetic diet Humalog on sliding scale HFrEF with chronic hypoxemic respiratory failure HD as above for management of volume continue po diuretics CAD/Cardiomyopathy continue ASA, beta-mohamud, isosorbide diabetic polyneuropathy continue home pain medications DVT prophylaxis-heparin Full code reason for continued hospitalization:nausea Quality Stroke Does the patient have a stroke diagnosis?: No VTE Prior VTE?: No VTE Risk Level:: Medical - moderate - high VTE Device Contraindication: Treatment Not Indicated VTE Drug Contraindication: N/A - Med Ordered
--- NOTE | 2023-06-08 10:26 | MHC.CM.PN ---
Per ROUNDS discussion, if Patient is able to eat, she may be ready for dc to home today(scheduled dc for yesterday was canceled r/t Nausea). CM will follow.
[2023-06-08] MEDS: Aspirin Enteric Coated 81 MG TABLET.DR PO (10:58)
[2023-06-08] MEDS: Isosorbide Mononitrate 30 MG TAB.ER.24H PO (10:58)
[2023-06-08] MEDS: levETIRAcetam 250 MG TABLET PO ×2 (10:58→22:35)
[2023-06-08] MEDS: NIFEdipine ER 90 MG TAB.ER.24 PO (10:59)
[2023-06-08 11:14] VITALS: BP 178/95; PULSE 91; RESP 16; TEMP 36.6; O2SAT 97
[2023-06-08 11:39] LABS: Glucose, Whole Blood 86 mg/dL (60-115)
[2023-06-08 16:00] VITALS: BP 134/73; PULSE 92; RESP 20; TEMP 36.6; O2SAT 94
[2023-06-08 16:38] LABS: Glucose, Whole Blood 87 mg/dL (60-115)
[2023-06-08 19:31] VITALS: BP 107/56; PULSE 86; RESP 18; TEMP 36.1; O2SAT 94
[2023-06-09] MEDS: HYDROmorphone HCl 0.5 MG/0.5 ML SYRINGE IVPUSH ×3 (03:55→12:40)
[2023-06-09 04:00] VITALS: BP 125/75; PULSE 87; RESP 18; TEMP 37.1; O2SAT 92
[2023-06-09 07:58] VITALS: BP 145/86; PULSE 86; RESP 16; TEMP 36.2; O2SAT 97
[2023-06-09 08:29] VITALS: RESP 16
[2023-06-09] MEDS: 0.9 % Sodium Chloride Flush 3 ML SYRINGE IVFLUSH ×2 (08:29→12:40)
[2023-06-09] MEDS: ondansetron HCL 4 MG/2 ML VIAL IVPUSH (08:49)
--- NOTE | 2023-06-09 10:12 | P.PNIM_ITS ---
Subjective Subjective Date of Service: 06/09/23 Interval History: nasuea Physical Exam 2 Vital Signs: Vital Signs: Last Vital Signs Temp 97.2 F 06/09/23 07:58 Pulse 86 06/09/23 07:58 Resp 16 06/09/23 08:29 BP 145/86 H 06/09/23 07:58 Pulse Ox 97 06/09/23 07:58 O2 Del Method Room Air 06/09/23 07:58 BMI result Body Mass Index 30.2 Appearance: Alert. Oriented X3. tired cvs: rrr, [id number] . res: clear to auscultation ,no rhonchii or wheezing abd: no rebound or guarding ,nt, bs present. neuro: axo3 , moves all ext ext pulses present , no cyanosis. Objective Data Active Medications Acetaminophen (Acetaminophen 325 Mg Tablet) 650 mg PO Q6H PRN PRN Reason: Pain, Mild (Pain Scale 1-3) Aspirin (Aspirin Enteric Coated 81 Mg Tablet.) 81 mg PO DAILY [facility] Last Admin: 06/08/23 10:58 Dose: 81 mg Documented By: BRENDA Atorvastatin Calcium (Atorvastatin Calcium 80 Mg Tablet) 80 mg PO DAILY [facility] Last Admin: 06/08/23 11:03 Dose: Not Given Documented By: BRENDA Non-Admin Reason: Patient Refused Docusate Sodium (Docusate Sodium 100 Mg Capsule) 100 mg PO DAILY PRN PRN Reason: constipation Glucose (Glucose Gel 15 Gm Gel..Gram.) 15 gm PO Q15M PRN; Protocol PRN Reason: per Hypoglycemia Standing Ord. Heparin Sodium (Porcine) (Heparin Sodium,Porcine 5,000 Unit/Ml Vial) 5,000 unit SUBCUT Q12H [facility] Last Admin: 06/09/23 05:29 Dose: Not Given Documented By: SAMSON Non-Admin Reason: Patient Refused Hydromorphone HCl (Hydromorphone Hcl 0.5 Mg/0.5 Ml Syringe) 0.5 mg IVPUSH Q4H PRN; Protocol PRN Reason: moderate pain Last Admin: 06/09/23 08:29 Dose: 0.5 mg Documented By: YOLIS Dextrose (D10) 250 mls @ 750 mls/hr IV Q15M PRN; Protocol PRN Reason: per Hypoglycemia Standing Ord. Insulin Human Lispro (Insulin Lispro 100 Unit/Ml 3 Ml Vial) 0 unit SUBCUT QIDACHS [facility]; Protocol Last Admin: 06/09/23 08:30 Dose: Not Given Documented By: YOLIS Non-Admin Reason: No Insulin Coverage Isosorbide Mononitrate (Isosorbide Mononitrate 30 Mg Tab.Er.24h) 30 mg PO DAILY [facility]; Protocol Last Admin: 06/08/23 10:58 Dose: 30 mg Documented By: BRENDA Levetiracetam (Levetiracetam 250 Mg Tablet) 250 mg PO BID [facility] Last Admin: 06/08/23 22:35 Dose: 250 mg Documented By: PARAG Lorazepam (Lorazepam 2 Mg/Ml Vial) 2 mg IVPUSH ONCE PRN PRN Reason: mri Nifedipine (Nifedipine Er 90 Mg Tab.Er.24) 90 mg PO DAILY [facility]; Protocol Last Admin: 06/08/23 10:59 Dose: 90 mg Documented By: BRENDA Ondansetron HCl (Ondansetron Hcl 4 Mg/2 Ml Vial) 4 mg IVPUSH Q8H PRN PRN Reason: Nausea and Vomiting Last Admin: 06/09/23 08:49 Dose: 4 mg Documented By: YOLIS Oxycodone HCl (Oxycodone Hcl Immed Release 5 Mg Tablet) 5 mg PO Q6H PRN PRN Reason: moderate pain Senna (Sennosides 8.6 Mg Tablet) 17.2 mg PO BEDTIME PRN PRN Reason: Constipation Sodium Bicarbonate (Sodium Bicarbonate 650 Mg Tablet) 650 mg PO TID [facility] Last Admin: 06/08/23 22:36 Dose: Not Given Documented By: PARAG Non-Admin Reason: Patient Refused Sodium Chloride (0.9 % Sodium Chloride Flush 3 Ml Syringe) 3 ml IVFLUSH QSHIFT [facility] Last Admin: 06/09/23 08:29 Dose: 3 ml Documented By: YOLIS Torsemide (Torsemide 20 Mg Tablet) 40 mg PO BIDWM [facility]; Protocol Last Admin: 06/08/23 18:13 Dose: Not Given Documented By: PARAG Non-Admin Reason: Patient Refused Vitamin D (Cholecalciferol (Vitamin D3) 25 Mcg Tablet) 50 mcg PO DAILY [facility] Last Admin: 06/08/23 11:03 Dose: Not Given Documented By: BRENDA Non-Admin Reason: Patient Refused Labs 06/04/23 15:49 06/04/23 15:49 Labs: Laboratory Results - last 24 hr 06/08/23 06/08/23 11:10 16:25 POC Glucose 86 87 Assessment and Plan (1) Malignant hypertensive urgency: Status: Acute (2) Altered mental status: Status: Acute Assessment and Plan: 32F PMH ESRD on dialysis TTHSa (though noncompliant with sunday as she does not like to leave the house on sunday), [id number] 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 multifactorial(hypertensive encephalopathy, ?new onset seizure with post ictal state) Head CT negative for acute intracranial abnormality. CTA head/neck negative MRI brain ordered -refused EEG - underlying risk for seizures, d/w neuro - recommended starting keppra 250mg bid blood pressure improving mental status is at baseline ESRD dialysis T,TH, ?sat hD. HTN continue imdur, nifedipine Acute on chronic metabolic acidosis-due to above(esrd) continue 650 mg sodium bicarbonate t.i.d. p.o. chronic diabetic left foot ulcer MRI negative for osteomyelitis during last admission Discharged 05/23 on 2 week course doxycycline per ID for cellulitis. Complete doxycyline wound appears clean/dry without evidence of acute infection wound care appreciated - continue local care (see note) aal-veatgpp-ftqaemsec type 2 diabetes POC glucose, diabetic diet Humalog on sliding scale HFrEF with chronic hypoxemic respiratory failure HD as above for management of volume continue po diuretics CAD/Cardiomyopathy continue ASA, beta-mohamud, isosorbide diabetic polyneuropathy continue home pain medications nausea continues to not eat, monitor closely for tolerance of po, zofran prn DVT prophylaxis-heparin Full code reason for continued hospitalization:nausea Quality Stroke Does the patient have a stroke diagnosis?: No VTE Prior VTE?: No VTE Risk Level:: Medical - moderate - high VTE Device Contraindication: Treatment Not Indicated VTE Drug Contraindication: N/A - Med Ordered
[2023-06-09 11:41] LABS: Glucose, Whole Blood 116 mg/dL (60-115)
[2023-06-09] MEDS: NIFEdipine ER 90 MG TAB.ER.24 PO (12:40)
[2023-06-09] MEDS: levETIRAcetam 250 MG TABLET PO (12:40)
[2023-06-09] MEDS: Aspirin Enteric Coated 81 MG TABLET.DR PO (12:40)
--- NOTE | 2023-06-09 13:45 | MHC.CM.PN ---
Second IMM given 06/08. Pt is medically cleared for D/C home self-care, pts sister Josy to transport her home.
[2023-07-26 10:44] LABS: Glucose, Whole Blood 93 mg/dL (60-115)
== END 2023-06-09 16:14 | disposition home or self-care (01) | DRG 304 ==
LOC: HO.ED 16:44 → HO.EDOVER 18:51 → HO.IMC 06-05 23:14
PROVIDERS: Internal Medicine; Admitting Provider Physician Assistant; Emergency Provider Emergency Medicine; PCP Internal Medicine; Visit Provider Internal Medicine
DX: I16.0 Hypertensive urgency (principal); N18.6 End stage renal disease; I50.22 Chronic systolic (congestive) heart failure; J96.11 Chronic respiratory failure with hypoxia; E87.21 Acute metabolic acidosis; E87.22 Chronic metabolic acidosis; I42.9 Cardiomyopathy, unspecified; I67.4 Hypertensive encephalopathy; L97.429 Non-pressure chronic ulcer of left heel and midfoot with unspecified severity; L97.419 Non-pressure chronic ulcer of right heel and midfoot with unspecified severity; E11.621 Type 2 diabetes mellitus with foot ulcer; I25.10 Atherosclerotic heart disease of native coronary artery without angina pectoris; H54.8 Legal blindness, as defined in USA; Z91.148 Patient's other noncompliance with medication regimen for other reason; Z91.158 Patient's noncompliance with renal dialysis for other reason; I13.2 Hypertensive heart and chronic kidney disease with heart failure and with stage 5 chronic kidney disease, or end stage renal disease; E11.22 Type 2 diabetes mellitus with diabetic chronic kidney disease; E11.42 Type 2 diabetes mellitus with diabetic polyneuropathy; Z99.81 Dependence on supplemental oxygen; Z99.2 Dependence on renal dialysis; Z79.899 Other long term (current) drug therapy
CPT/HCPCS: 36415; 70450; 70496; 70498; 80053; 80061; 82803; 82947; 84484; 85025; 90999; 93005; 95816; 97162; 97166; 99285; J1170; J1920; J2405; Q9967

== ENCOUNTER → 2023-06-04 14:49 | Outpatient (BNV) | payer OTHER, SELFPAY | PROVIDERS: Admitting Provider Physician Assistant; Emergency Provider Emergency Medicine; PCP Internal Medicine; Visit Provider Internal Medicine Cardiovascular Disease | DX: R94.31 Abnormal electrocardiogram [ECG] [EKG] (principal) | CPT/HCPCS: 93010 ==

== ENCOUNTER → 2023-06-04 15:20 | Outpatient (BNV) | payer OTHER, SELFPAY | PROVIDERS: Emergency Provider Emergency Medicine; Visit Provider Physician Assistant | DX: I16.0 Hypertensive urgency (principal); R41.82 Altered mental status, unspecified | CPT/HCPCS: 99223; 99231; 99232; 99239; 99499 ==

== ENCOUNTER → 2023-06-04 18:19 | Outpatient (BNV) | payer OTHER, SELFPAY | PROVIDERS: Admitting Provider Physician Assistant; Emergency Provider Emergency Medicine; Visit Provider Psychiatry & Neurology Neurology | DX: R56.9 Unspecified convulsions (principal); N18.6 End stage renal disease; R41.82 Altered mental status, unspecified | CPT/HCPCS: 99222 ==

== ENCOUNTER 2023-06-11 23:21 | Emergency (ER) | payer OTHER, SELFPAY ==
--- NOTE | ~2023-06-11 | XR_ITS ---
EXAMINATION: XR CHEST CLINICAL INFORMATION: Shortness of breath COMPARISON: 05/19/2023 TECHNIQUE: Frontal view of the chest was obtained. FINDINGS: Right IJ central line tip lies in the region of the proximal right atrium. Lung volumes are symmetric. No focal consolidation is seen. Mild bibasilar atelectasis is suspected. No evidence of pneumothorax. Suspect trace right pleural effusion. No overt pulmonary edema. Cardiac silhouette remains mildly enlarged. No acute osseous findings are seen. XR/XR chest 1V IMPRESSION: Mild bibasilar atelectasis and suspected trace right pleural effusion. Mildly enlarged cardiac silhouette.
[2023-06-11 23:47] VITALS: BP 208/135; PULSE 100; O2SAT 100
[2023-06-11 23:49] VITALS: BMI 24.2
[2023-06-11 23:54] VITALS: BP 211/118; PULSE 98; RESP 20; TEMP 36.3; O2SAT 99
[2023-06-11 23:55] VITALS: PULSE 110
--- NOTE | 2023-06-11 23:58 | ED.CHESTPAIN ---
HPI - Chest Pain General Chief Complaint: Chest Pain Stated Complaint: SOB, CHEST PAIN Time Seen by Provider: 06/11/23 23:58 Source: patient Mode of arrival: EMS Limitations: no limitations History of Present Illness HPI narrative: Patient with multiple complaints end-stage renal disease on hemodialysis complaining of pain all over complaining of short of breath pain in the wound in the feet which been there for long time patient has been here multiple times for same taking oxycodone for pain patient had last dialysis 2 days ago and will be have dialysis tomorrow Related Data Home Medications ?Medication ?Instructions ?Recorded ?Confirmed carvedilol 12.5 mg tablet 12.5 mg PO BID 06/05/23 06/05/23 cholecalciferol (vitamin D3) 50 50 mcg PO DAILY 06/05/23 06/05/23 mcg (2,000 unit) capsule docusate sodium 100 mg capsule 100 mg PO DAILY PRN constipation 06/05/23 06/05/23 hydralazine 100 mg tablet 50 mg PO TID 06/05/23 06/05/23 isosorbide mononitrate 30 mg 30 mg PO QAM 06/05/23 06/05/23 tablet,extended release 24 hr losartan 50 mg tablet 50 mg PO DAILY 06/05/23 06/05/23 torsemide 20 mg tablet 40 mg PO BID 06/05/23 06/05/23 Previous Rx's ?Medication ?Instructions ?Recorded off loading boot #1 ea 03/14/23 nifedipine 90 mg tablet,extended 90 mg PO DAILY #30 tabs 05/24/23 release 24 hr levetiracetam 250 mg tablet 250 mg PO BID #180 tabs 06/07/23 (Keppra) Allergies Allergy/AdvReac Type Severity Reaction Status Date / Time morphine [MORPHINE] Allergy Intermediate Itching Verified 06/11/23 23:54 azithromycin [From Zithromax] Allergy Hives Verified 06/11/23 23:54 gabapentin Allergy Facial Verified 06/11/23 23:54 Swelling tramadol Allergy Facial Verified 06/11/23 23:54 Swelling vancomycin Allergy Anaphylaxis Verified 06/11/23 23:54 Review of Systems Review of Systems: Yes all other systems are reviewed and are negative PMFSH Past Medical History Medical History Hypertension End-stage renal disease (ESRD) Foot ulcer CKD (chronic kidney disease) Hypertension Anemia Diabetic foot Vomiting Renal failure Hypertension Hyperkalemia Metabolic acidosis HFrEF (heart failure with reduced ejection fraction) ESRD on dialysis Migraine Diabetic foot ulcer associated with type 2 diabetes mellitus Chronic pain Gastroparesis Non-compliance with renal dialysis Hypertensive emergency Diabetes ESRD needing dialysis Cardiomyopathy delivery delivered Anemia in chronic kidney disease (CKD) CKD (chronic kidney disease) Headache, migraine Abnormal finding on echocardiogram Elevated troponin Chest pain Acute worsening of stage 3 chronic kidney disease Generalized edema Sepsis Cellulitis Pleural effusion CHF (congestive heart failure) (~06/07/22) Tachycardia Atypical chest pain Bone infection PAD (peripheral artery disease) Severe anemia Cellulitis and abscess of foot DM foot ulcer Osteomyelitis test positive test positive Asthma Depression with anxiety Diabetic retinopathy Type 2 diabetes mellitus with hyperglycemia, with long-term current use of insulin Blind right eye Diabetes Back pain Surgical History 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 Family History Family History Mother Coronary artery disease Myocardial infarction Stroke Diabetes mellitus Father Myocardial infarction Social History Social History Household Members: Significant Other and Family Household Members Other:: Sister, [id number], nephew Housing: Apartment Do you presently have visiting nurse or other home services: No Unable to assess alcohol history related to: Unknown Alcohol intake: never 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 Oriented X3. No acute distress. Eyes: Legally blind ENT: Pharynx normal. Oral Mucosa moist Neck: Normal inspection. Neck supple. CVS: Normal heart rate and rhythm. Pulses normal. Respiratory: No respiratory distress. Equal air entry bilateral, no wheezing/rales/rhonchi Abdomen: Soft and nontender. Bowel sounds are present, no mass palpable, no CVA tenderness Skin: Skin warm and dry. Normal skin color. Normal skin turgor. Extremities: No lower extremity edema. No calf tenderness right metatarsal amputation left greater toe amputation chronic left sole wound without any significant pus discharge healing right wound without any significant erythema Neuro: Oriented X 3. No motor deficit. No sensory deficit.No cerebellar signs , cranial nerves II-XII intact Medications Administered Discontinued Medications Generic Name Dose Route Start Last Admin Trade Name Freq PRN Reason Stop Dose Admin Hydralazine HCl 20 mg 06/12/23 01:44 06/12/23 01:53 Hydralazine Hcl 20 Mg/Ml Vial IVPUSH 06/12/23 01:45 20 mg ONCE ONE Administration Protocol Hydromorphone HCl 2 mg 06/12/23 00:03 06/12/23 00:25 Hydromorphone Hcl 2 Mg/Ml Vial IVPUSH 06/12/23 00:04 2 mg ONCE ONE Administration Protocol Lorazepam 1 mg 06/12/23 05:03 06/12/23 05:11 Lorazepam 2 Mg/Ml Vial IVPUSH 06/12/23 05:04 1 mg ONCE ONE Administration Ondansetron HCl 4 mg 06/12/23 00:04 06/12/23 00:25 Ondansetron Hcl 4 Mg/2 Ml Vial IVPUSH 06/12/23 00:05 4 mg ONCE ONE Administration Medical Decision Making Medical Decision Making [facility] Narrative: Patient with end-stage renal disease with chronic pain syndrome with multiple ER visits for pain on oxycodone head just MRI of both feet which negative for osteomyelitis labs are stable patient received Dilaudid on sleeping in the ER at the time of discharge complaining of shortness of breath saturating 99% at room air will get chest x-ray and repeat EKG 445am patient is sleeping when give her the papers for discharge patient is started complaining of pain all over and in chest. Patient asking for pain medication will repeat chest x-ray and EKG and evaluate again repeat troponin 6 am No change in EKG no significant increase in delta troponin patient feeling better after Ativan sleeping relax will discharge patient home patient is scheduled for dialysis today at 11:00 Differential Diagnosis Differential Diagnoses: The differential diagnosis associated with the presentation includes Chronic pain syndrome/anxiety/renal disease/ACS/metabolic abnormality Lab Data [facility] Lab Attestation statement: I reviewed the patient's lab results. 06/12/23 00:20 06/12/23 00:20 Labs: Lab Results 06/12/23 06/12/23 Range/Units 00:03 00:20 WBC 4.6 L (4.8-10.8) X10*3/uL RBC 3.41 L (4.20-5.50) X10*6/uL Hgb 10.5 L (12.0-16.0) g/dl Hct 32.4 L (37.0-47.0) % MCV 95.0 (80.0-98.0) fL MCH 30.8 (27.0-33.0) pg MCHC 32.4 (31.0-35.0) g/dl RDW 17.3 H (11.0-16.0) % Plt Count 133 L (160-400) X10*3/uL MPV 12.7 H (9.4-12.3) fL Immature Gran % (Auto) 1.1 H (0.0-0.4) % Neut % (Auto) 76.8 H (45-73) % Lymph % (Auto) 10.3 L (20-40) % [place] % (Auto) 7.3 (2-11) % Eos % (Auto) 4.1 H (0-4) % Baso % (Auto) 0.4 (0-2) % Lymph # (Auto) 0.5 L (1.2-4.9) X10*3/uL [place] # (Auto) 0.3 (0.1-1.2) X10*3/uL Eos # (Auto) 0.2 (0.0-0.4) X10*3/uL Baso # (Auto) 0.0 (0.0-0.2) X10*3/uL Abs Immat Gran (auto) 0.05 H (0.00-0.03) X10*3/uL Absolute Neuts (auto) 3.6 (2.0-8.3) x10*3/uL Absolute Nucleated RBC 0.000 (0.0-0.012) X10*3/uL Nucleated RBC % (auto) 0.0 (0.0-0.2) /100WBC Sodium 135 (135-145) mmol/L Potassium 5.2 H (3.3-5.1) mmol/L Chloride 108 (96-108) mmol/L Carbon Dioxide 19 L (22-29) mmol/L Anion Gap 13 (12-20) BUN 38 H (9-16) mg/dL Creatinine 5.52 H* (0.5-1.4) mg/dL Estim Creat Clear Calc 13.4 Estimated GFR 9 POC Glucose 151 H (60-115) mg/dL Random Glucose 167 H (60-115) mg/dL Lactic Acid 0.9 (0.5-2.0) mmol/L Calcium 8.4 (8.4-10.2) mg/dL Troponin I High Sens 32.1 H D (<3.5-17.0) ng/L Independent Interpretation I performed an independent interpretation of an: EKG Interpretation: Normal sinus rhythm heart rate 94 beats per minute right bundle-branch block no acute ST elevation no acute change from the EKG done on 06/04/2023 Discharge Plan Discharge Clinical Impression: End-stage renal disease (ESRD), Chronic pain Patient Disposition: Home, Self-Care Instructions: Chronic Pain (ED), End Stage Kidney Disease (ED) Additional Instructions: Continue your oxycodone for pain as prescribed Follow with your PCP Take blood pressure medicine on time Prescriptions: No Action (DME) off loading boot Kit See Rx Instructions .Route Qty: 1 0RF Rx Instructions: As directed losartan 50 mg tablet 50 mg PO DAILY carvedilol 12.5 mg tablet 12.5 mg PO BID torsemide 20 mg tablet 40 mg PO BID isosorbide mononitrate 30 mg tablet extended release 24 hr 30 mg PO QAM hydralazine 100 mg tablet 50 mg PO TID docusate sodium 100 mg capsule 100 mg PO DAILY PRN (Reason: constipation) cholecalciferol (vitamin D3) 50 mcg (2,000 unit) capsule 50 mcg PO DAILY levetiracetam [Keppra] 250 mg tablet 250 mg PO BID Qty: 180 0RF nifedipine 90 mg Tablet Extended Release 24hr 90 mg PO DAILY Qty: 30 0RF Protocol: Hold for SBP< HOLD for SBP < : 90 Rx Instructions: replaces prior dose of 60 mg daily Print Language: Greek
[2023-06-12 00:07] LABS: Glucose, Whole Blood 151 mg/dL (60-115)
[2023-06-12] MEDS: ondansetron HCL 4 MG/2 ML VIAL IVPUSH (00:25)
[2023-06-12] MEDS: HYDROmorphone HCl 2 MG/ML VIAL IVPUSH (00:25)
[2023-06-12 00:31] LABS: MANUAL DIFF FLAG NO
[2023-06-12 00:36] LABS: Basophils Percent Auto 0.4 % (0-2); Eosinophils Absolute Auto 0.2 X10*3/uL (0.0-0.4); Eosinophils Percent Auto 4.1 % (0-4); Hematocrit 32.4 % (37.0-47.0); Hemoglobin 10.5 g/dl (12.0-16.0); Imm Gran Abs Auto 0.05 X10*3/uL (0.00-0.03); Imm Gran Pct Auto 1.1 % (0.0-0.4); Lymphocytes Absolute Auto 0.5 X10*3/uL (1.2-4.9); Lymphocytes Percent Auto 10.3 % (20-40); Mean Corpuscular HGB Conc 32.4 g/dl (31.0-35.0); Mean Corpuscular Hemoglobin 30.8 pg (27.0-33.0); Mean Platelet Volume 12.7 fL (9.4-12.3); Monocytes Absolute Auto 0.3 X10*3/uL (0.1-1.2); Monocytes Percent Auto 7.3 % (2-11); Neutrophils Absolute Auto 3.6 x10*3/uL (2.0-8.3); Neutrophils Percent Auto 76.8 % (45-73); Platelet Count 133 X10*3/uL (160-400); Red Blood Count 3.41 X10*6/uL (4.20-5.50); Red Cell Distribution Width 17.3 % (11.0-16.0); White Blood Count 4.6 X10*3/uL (4.8-10.8)
[2023-06-12 00:42] LABS: Lactic Acid 0.9 mmol/L (0.5-2.0)
[2023-06-12 00:50] LABS: Anion Gap 13 (12-20); Blood Urea Nitrogen 38 mg/dL (9-16); Calcium 8.4 mg/dL (8.4-10.2); Carbon Dioxide 19 mmol/L (22-29); Chloride 108 mmol/L (96-108); Creatinine Clr Calc Pharmacy 13.4; Estimated Glomerular Filt Rate 9; Glucose Random 167 mg/dL (60-115); Potassium 5.2 mmol/L (3.3-5.1); Sodium 135 mmol/L (135-145)
[2023-06-12 00:53] LABS: Troponin-I High Sensitivity 32.1 ng/L (<3.5-17.0)
[2023-06-12 01:34] VITALS: BP 206/105; PULSE 103; RESP 19; TEMP 36.6; O2SAT 93
[2023-06-12] MEDS: hydrALAZINE HCl 20 MG/ML VIAL IVPUSH (01:53)
[2023-06-12 03:04] VITALS: BP 163/89
[2023-06-12 03:34] VITALS: BP 172/92
[2023-06-12 04:05] VITALS: BP 176/97
--- NOTE | 2023-06-12 04:50 | ECG_ITS ---
Test Reason : Chest pain Blood Pressure : / mmHG Vent. Rate : 107 BPM Atrial Rate : 107 BPM P-R Int : 148 ms QRS Dur : 144 ms QT Int : 386 ms P-R-T Axes : 064 005 090 degrees QTc Int : 515 ms Sinus tachycardia Possible Left atrial enlargement Right bundle branch block Abnormal ECG When compared with ECG of 04-JUN-2023 14:54, T wave inversion now evident in Anterior leads Referred By: Mazin Rubalcava Electronically Signed By:JASKARAN COOL
[2023-06-12] MEDS: LORazepam 2 MG/ML VIAL 1 MG IVPUSH (05:11)
--- NOTE | 2023-06-12 05:47 | PC.NURSE ---
pt was sleeping in stretcher comfortably in the hallway when this RN woke her up to tell her she would be getting discharged. pt agreeable at this time. visitor was also asleep in chair at the end of the bed w/ a blanket over her head. she also woken up as she was going to call for a ride. upon returning to the patient with her paperwork she began to scream and started to clutch her chest. however when asked by this RN what she was feeling she refused to answer. visitor answered her chest is tight. provider notified. spanish interpreter at bedside. pt continued to grab her chest and scream. pt stating something bad is going to happen to me I can feel it. pt was very vague in her description of what she was feeling when asked. provider placed order for EKG and CXR. upon approaching patient with the EKG machine she began to yell again it's not that. why aren't you people listening to me? I'm in pain. pt at this time refusing EKG. visitor then states you're not even doing anything to help her. attempted to explain the plan of care to patient and visitor when she began to hyperventilate and dry heave. pt still yelling what don't you understand. I'm in pain. CXR now at bedside. pt still very vague in describing her symptoms. while attempting to get chest xray pt began to experience seizure like activity. ativan given by battery charger conveyor line per verbal order by . pt now sleeping comfortable in stretcher.
[2023-06-12 06:16] VITALS: BP 183/105; PULSE 92; RESP 12; TEMP 36.9; O2SAT 99
[2023-06-12 07:12] VITALS: BP 170/94; PULSE 85; RESP 14; TEMP 36.4; O2SAT 97
== END 2023-06-12 07:13 | disposition home or self-care (01) ==
PROVIDERS: Emergency Provider Internal Medicine
DX: G89.29 Other chronic pain (principal); E11.22 Type 2 diabetes mellitus with diabetic chronic kidney disease; I12.0 Hypertensive chronic kidney disease with stage 5 chronic kidney disease or end stage renal disease; N18.6 End stage renal disease; Z99.2 Dependence on renal dialysis; Z88.1 Allergy status to other antibiotic agents; Z88.6 Allergy status to analgesic agent
CPT/HCPCS: 36415; 71045; 80048; 82947; 83605; 84484; 85025; 87040; 87205; 93005; 96374; 96375; 99285; J0360; J1170; J2060; J2405

== ENCOUNTER → 2023-06-12 04:50 | Outpatient (BNV) | payer OTHER, SELFPAY | PROVIDERS: Emergency Provider Internal Medicine; Visit Provider Internal Medicine | DX: R94.31 Abnormal electrocardiogram [ECG] [EKG] (principal) | CPT/HCPCS: 93010 ==

== ENCOUNTER 2023-06-14 13:58 | Emergency (ER) | payer OTHER, SELFPAY ==
[2023-06-14 14:20] VITALS: BP 114/70; BP 97/54; PULSE 76; RESP 16; TEMP 36.4; O2SAT 95; O2SAT 96; BMI 30.8
--- NOTE | 2023-06-14 14:26 | ECG_ITS ---
Test Reason : SIEZURE Blood Pressure : / mmHG Vent. Rate : 080 BPM Atrial Rate : 080 BPM P-R Int : 166 ms QRS Dur : 146 ms QT Int : 426 ms P-R-T Axes : 047 -30 014 degrees QTc Int : 491 ms Artifact in tracing Normal sinus rhythm Possible Left atrial enlargement Left axis deviation Right bundle branch block Abnormal ECG When compared with ECG of 12-JUN-2023 05:03, No significant changes seen Referred By: Helen Pal Electronically Signed By:JASKARAN COOL
--- NOTE | 2023-06-14 14:28 | ED_ITS ---
HPI - Seizure General Chief Complaint: Seizure Stated Complaint: WITNESSED SEIZURE PER EMS Time Seen by Provider: 06/14/23 14:12 Source: patient and EMS Mode of arrival: EMS Limitations: other ( Poor historian) History of Present Illness HPI Narrative: patient comes to the emergency room via EMS. According to EMS, patient was in the waiting room of a physician's office, and patient had a seizure. According to the staff, nobody witnessed the seizure. when they arrived, patient was awake, not postictal. Patient states that she can not remember anything. According to EMS, initial blood pressure 114. Patient is supposed to go to dialysis on a Sunday schedule. patient believes that the last time she had dialysis done was 5 days ago but she has not sure. Related Data Home Medications ?Medication ?Instructions ?Recorded ?Confirmed carvedilol 12.5 mg tablet 12.5 mg PO BID 06/05/23 06/05/23 cholecalciferol (vitamin D3) 50 50 mcg PO DAILY 06/05/23 06/05/23 mcg (2,000 unit) capsule docusate sodium 100 mg capsule 100 mg PO DAILY PRN constipation 06/05/23 06/05/23 hydralazine 100 mg tablet 50 mg PO TID 06/05/23 06/05/23 isosorbide mononitrate 30 mg 30 mg PO QAM 06/05/23 06/05/23 tablet,extended release 24 hr losartan 50 mg tablet 50 mg PO DAILY 06/05/23 06/05/23 torsemide 20 mg tablet 40 mg PO BID 06/05/23 06/05/23 Previous Rx's ?Medication ?Instructions ?Recorded off loading boot #1 ea 03/14/23 nifedipine 90 mg tablet,extended 90 mg PO DAILY #30 tabs 05/24/23 release 24 hr levetiracetam 250 mg tablet 250 mg PO BID #180 tabs 06/07/23 (Keppra) Allergies Allergy/AdvReac Type Severity Reaction Status Date / Time morphine [MORPHINE] Allergy Intermediate Itching Verified 06/14/23 14:26 azithromycin [From Zithromax] Allergy Hives Verified 06/14/23 14:26 gabapentin Allergy Facial Verified 06/14/23 14:26 Swelling tramadol Allergy Facial Verified 06/14/23 14:26 Swelling vancomycin Allergy Anaphylaxis Verified 06/14/23 14:26 Review of Systems 2 Review of Systems: Constitutional : No Weight loss, No Fever, No Chills, No Night Sweats, No Fatigue, No Malaise ENT/Mouth : No Hearing loss, No Ear Pain, No Nasal Congestion, No Sinus Pain, No Hoarseness, No sore throat, No Rhinorrhea, No Swallowing Difficulty Eyes: No Eye Pain, No Swelling, No Redness, No Foreign Body, No Discharge, No Vision Changes Cardiovascular : No Chest Pain, No SOB, No Dyspnea on Exertion, No Orthopnea, No Edema, No Palpitations Respiratory : No Cough, No Sputum, No Wheezing, No Smoke Exposure, No Dyspnea Gastrointestinal : No Nausea, No Vomiting, No Diarrhea, No Constipation, No abdominal Pain, No Hematochezia, No Melena Genitourinary : no irregular bleeding, No Dysuria, No Urinary Frequency, No Hematuria, No Urinary Incontinence, No Urgency, No Flank Pain, No Urinary Flow Changes, No Hesitancy Musculoskeletal : No joint pain, No Myalgias, No Joint Swelling Skin : No Skin Lesions, No rash Neuro : No Weakness, No Numbness, No Paresthesias, Possible seizure, possible syncopal episode? Psych : No Anxiety/Panic, No Depression, No SI/HI/AH/VH, No Social Issues, Heme/Lymph: No Bruising, No Bleeding,No Lymphadenopathy Endocrine : No Polyuria, No Polydipsia, No Temperature Intolerance [facility] Past Medical History Medical History Hypertension End-stage renal disease (ESRD) Foot ulcer CKD (chronic kidney disease) Hypertension Anemia Diabetic foot Vomiting Renal failure Hypertension Hyperkalemia Metabolic acidosis HFrEF (heart failure with reduced ejection fraction) ESRD on dialysis Migraine Diabetic foot ulcer associated with type 2 diabetes mellitus Chronic pain Gastroparesis Non-compliance with renal dialysis Hypertensive emergency Diabetes ESRD needing dialysis Cardiomyopathy delivery delivered Anemia in chronic kidney disease (CKD) CKD (chronic kidney disease) Headache, migraine Abnormal finding on echocardiogram Elevated troponin Chest pain Acute worsening of stage 3 chronic kidney disease Generalized edema Sepsis Cellulitis Pleural effusion CHF (congestive heart failure) (~06/07/22) Tachycardia Atypical chest pain Bone infection PAD (peripheral artery disease) Severe anemia Cellulitis and abscess of foot DM foot ulcer Osteomyelitis test positive test positive Asthma Depression with anxiety Diabetic retinopathy Type 2 diabetes mellitus with hyperglycemia, with long-term current use of insulin Blind right eye Diabetes Back pain Surgical History 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 Family History Family History Mother Coronary artery disease Myocardial infarction Stroke Diabetes mellitus Father Myocardial infarction Social History Social History Household Members: Significant Other and Family Household Members Other:: Sister, [id number], nephew Housing: Apartment Do you presently have visiting nurse or other home services: No Unable to assess alcohol history related to: Unknown Alcohol intake: never 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 Patient Tobacco Use Status: Never used Tobacco e-Cigarette/Vaping Use: Never Used Second Hand Smoke Exposure: No Advance Directives: Yes Advance Directives on File: Yes Advance Directives Date on File: 03/08/20 service: No Current occupational status: unemployed and disabled Gender identity: Female Physical Exam 2 Vital Signs: Vital Signs: Last Vital Signs Temp 97.6 F 06/14/23 14:20 Pulse 79 06/14/23 15:49 Resp 19 06/14/23 15:34 BP 109/62 06/14/23 15:49 Pulse Ox 97 06/14/23 15:34 O2 Del Method Room Air 06/14/23 15:34 BMI result Body Mass Index 30.8 Const: Other: Appearance: Alert. Oriented X3. No acute distress. Eyes: patient is legally blind, right eye looks erythematous. ENT: Pharynx normal. Neck: Normal inspection. Neck supple. No lymph nodes noted. No crepitus CVS: Normal heart rate and rhythm. Pulses normal. Normal S1 and S2 Respiratory: No respiratory distress. Breath sounds normal. No Wheezing. No rales Abdomen: Soft and nontender. No rigidity. No distention. Skin: Skin warm and dry. Normal skin color. Normal skin turgor. Extremities: No lower extremity edema. No Lacerations. No Rash Neuro: Oriented X 3. No motor deficit. No sensory deficit. Moving all extremities. No slurred speech. CN 2 through 12 grossly intact Psych: calm, cooperative, normal affect Course Course Course Narrative: - According to EMS, patint had a seizure. Unwitnessed by staff, Only by patient's floor scrubber. - All of patient's labs pending. - I reviewed patient's medical record, on the last admission, patient had white seem to be a seizure however per neurologist note, he would is difficult to determine if patient had true seizure. Patient needs an EEG. Patient was started on Keppra by the hospitalist team. - Patient has not been compliant with dialysis, states she believes the last time she had dialysis was 5 days ago or more but she has not sure. Medications Administered Discontinued Medications Generic Name Dose Route Start Last Admin Trade Name Brandon PRN Reason Stop Dose Admin Fluorescein Sodium 1 strip 06/14/23 14:37 06/14/23 16:43 Fluorescein Sodium Strip EYE-RIGHT 06/14/23 14:38 1 strip ONCE ONE Administration Tetracaine HCl 1 drop 06/14/23 14:36 06/14/23 16:43 Tetracaine Hcl/Pf 0.5% Oph Lisa 4 Ml Drops EYE-RIGHT 06/14/23 14:37 1 drop ONCE ONE Administration Medical Decision Making Medical Decision Making [facility] Narrative: - my interpretation of labs: Hematology at baseline, chemistry shows a creatinine of 7.06 which has been previously elevated. patient has not had dialysis for over a week. At this time, patient's blood pressure is within normal limits, no difficulty breathing, no need for emergent dialysis. Patient will reschedule dialysis for tomorrow. - Here in the emergency room, patient had a seizure. however, patient was on the monitor, patient's vitals did not change at all, oxygen saturation remained above 96% on room air, patient was not postictal. I believe this was a pseudo- seizure. - According to the patient's sister who is at bedside, patient was discharged yesterday from [facility]. According to the sister, the patient was admitted for seizures and started on several medications. We are waiting for records from [facility]. However, as mentioned above, today this was likely a pseudo-seizure - patient is completely awake, alert. I spoke with Dr. Damon. At this time, we will not start any treatment, I pressure on the right 35 mmHg, left 24. Patient is already legally blind, patient does not have significant pain. Therefore, patient can follow-up tomorrow with Dr. Damon. According to the patient and her sister who is healthcare proxy, patient does not have an building maintenance custodian. - Patient agrees to reschedule her appointment for dialysis and to call Dr. Damon tomorrow morning Differential Diagnosis Differential Diagnoses: The differential diagnosis associated with the presentation includes ( seizures, pseudoseizures, glaucoma) Admission/Observation Consideration of admission/observation: Escalation of care including admission/observation considered ( given patient's history, admission was considered) Lab Data MDM Lab Attestation statement: I reviewed the patient's lab results. 06/14/23 15:25 06/14/23 15:25 Labs: Lab Results 06/14/23 06/14/23 Range/Units 15:25 15:26 WBC 4.7 L (4.8-10.8) X10*3/uL RBC 2.90 L (4.20-5.50) X10*6/uL Hgb 8.9 L (12.0-16.0) g/dl Hct 27.4 L (37.0-47.0) % MCV 94.5 (80.0-98.0) fL MCH 30.7 (27.0-33.0) pg MCHC 32.5 (31.0-35.0) g/dl RDW 17.2 H (11.0-16.0) % Plt Count 118 L (160-400) X10*3/uL MPV 11.3 (9.4-12.3) fL Immature Gran % (Auto) 0.2 (0.0-0.4) % Neut % (Auto) 70.9 (45-73) % Lymph % (Auto) 8.9 L (20-40) % [place] % (Auto) 15.0 H (2-11) % Eos % (Auto) 4.6 H (0-4) % Baso % (Auto) 0.4 (0-2) % Lymph # (Auto) 0.4 L (1.2-4.9) X10*3/uL [place] # (Auto) 0.7 (0.1-1.2) X10*3/uL Eos # (Auto) 0.2 (0.0-0.4) X10*3/uL Baso # (Auto) 0.0 (0.0-0.2) X10*3/uL Abs Immat Gran (auto) 0.01 (0.00-0.03) X10*3/uL Absolute Neuts (auto) 3.4 (2.0-8.3) x10*3/uL Absolute Nucleated RBC 0.000 (0.0-0.012) X10*3/uL Nucleated RBC % (auto) 0.0 (0.0-0.2) /100WBC PT 13.6 H (11.1-13.3) SEC INR 1.1 (0.9-1.1) Sodium 135 (135-145) mmol/L Potassium 5.3 H (3.3-5.1) mmol/L Chloride 108 (96-108) mmol/L Carbon Dioxide 20 L (22-29) mmol/L Anion Gap 12 (12-20) BUN 55 H (9-16) mg/dL Creatinine 7.06 H* (0.5-1.4) mg/dL Estim Creat Clear Calc 12.4 Estimated GFR 7 Random Glucose 197 H (60-115) mg/dL Lactic Acid 1.1 (0.5-2.0) mmol/L Calcium 7.8 L D (8.4-10.2) mg/dL Magnesium 2.9 H (1.6-2.6) mg/dL Total Bilirubin 0.6 (0.0-1.0) mg/dL Direct Bilirubin 0.4 (0.0-0.5) mg/dL AST 13 (5-31) U/L ALT 12 (0-31) U/L Alkaline Phosphatase 118 H (39-117) U/L Troponin I High Sens 12.3 D (<3.5-17.0) ng/L Total Protein 7.1 (6.5-8.0) g/dL Albumin 3.2 L (3.5-5.0) g/dL Ethyl Alcohol < 10 mg/dL Discharge Plan Discharge Clinical Impression: Psychogenic nonepileptic seizure, Increased pressure in the eye Patient Disposition: Home, Self-Care Instructions: Nonepileptic Seizures (ED) Additional Instructions: Please follow-up with your primary care physician tomorrow. If you have any worsening or new symptoms, please return to the emergency room or call 911 Prescriptions: No Action (DME) off loading boot Kit See Rx Instructions .Route Qty: 1 0RF Rx Instructions: As directed losartan 50 mg tablet 50 mg PO DAILY carvedilol 12.5 mg tablet 12.5 mg PO BID torsemide 20 mg tablet 40 mg PO BID isosorbide mononitrate 30 mg tablet extended release 24 hr 30 mg PO QAM hydralazine 100 mg tablet 50 mg PO TID docusate sodium 100 mg capsule 100 mg PO DAILY PRN (Reason: constipation) cholecalciferol (vitamin D3) 50 mcg (2,000 unit) capsule 50 mcg PO DAILY levetiracetam [Keppra] 250 mg tablet 250 mg PO BID Qty: 180 0RF nifedipine 90 mg Tablet Extended Release 24hr 90 mg PO DAILY Qty: 30 0RF Protocol: Hold for SBP< HOLD for SBP < : 90 Rx Instructions: replaces prior dose of 60 mg daily Referrals: Steve Damon [Physician] - 06/15/23 Print Language: [place]
[2023-06-14 14:40] VITALS: BP 90/44; PULSE 77; RESP 19; O2SAT 94
--- NOTE | 2023-06-14 15:00 | PC.NURSE ---
Pt presents to ED via EMS from doctors office. EMS was called due to pt having possible seizure in lobby of doctors office. According to EMS, boyfriend reports pt has new onset of seizures X2 weeks, has recently been started on Keppra. EMS did not witness any seizure, reported to EMS that seizure lasted approx 1-2 mins. IV placed in left hand by EMS, 12 lead RBBB. Pt is alert and oriented, breathing even and unlabored. Pt is dialysis pt //SUN, did not get dialysis today and when asked says she does not remember the last time she went. Pt reports pain in bilat feet, chronic, 12/05. Seizure precautions in place. Pt placed on bedside gynaecological oncologist, NSR.
[2023-06-14 15:31] LABS: MANUAL DIFF FLAG NO
[2023-06-14 15:34] VITALS: BP 120/74; PULSE 79; RESP 19; O2SAT 97
[2023-06-14 15:34] LABS: Basophils Percent Auto 0.4 % (0-2); Eosinophils Absolute Auto 0.2 X10*3/uL (0.0-0.4); Eosinophils Percent Auto 4.6 % (0-4); Hematocrit 27.4 % (37.0-47.0); Hemoglobin 8.9 g/dl (12.0-16.0); Imm Gran Abs Auto 0.01 X10*3/uL (0.00-0.03); Imm Gran Pct Auto 0.2 % (0.0-0.4); Lymphocytes Absolute Auto 0.4 X10*3/uL (1.2-4.9); Lymphocytes Percent Auto 8.9 % (20-40); Mean Corpuscular HGB Conc 32.5 g/dl (31.0-35.0); Mean Corpuscular Hemoglobin 30.7 pg (27.0-33.0); Mean Corpuscular Volume 94.5 fL (80.0-98.0); Mean Platelet Volume 11.3 fL (9.4-12.3); Monocytes Absolute Auto 0.7 X10*3/uL (0.1-1.2); Neutrophils Absolute Auto 3.4 x10*3/uL (2.0-8.3); Neutrophils Percent Auto 70.9 % (45-73); Platelet Count 118 X10*3/uL (160-400); Red Cell Distribution Width 17.2 % (11.0-16.0); White Blood Count 4.7 X10*3/uL (4.8-10.8)
[2023-06-14 15:39] LABS: INTERNATIONAL NORM RATIO 1.1 (0.9-1.1); Prothrombin Time 13.6 SEC (11.1-13.3)
[2023-06-14 15:49] VITALS: BP 109/62; PULSE 79
[2023-06-14 15:58] LABS: Lactic Acid 1.1 mmol/L (0.5-2.0)
[2023-06-14 16:03] LABS: Ethanol < 10 mg/dL
[2023-06-14 16:06] LABS: Alanine Aminotransferase 12 U/L (0-31); Albumin Level 3.2 g/dL (3.5-5.0); Alkaline Phosphatase 118 U/L (39-117); Anion Gap 12 (12-20); Aspartate Amino Transferase 13 U/L (5-31); Bilirubin Direct 0.4 mg/dL (0.0-0.5); Bilirubin Total 0.6 mg/dL (0.0-1.0); Blood Urea Nitrogen 55 mg/dL (9-16); Calcium 7.8 mg/dL (8.4-10.2); Carbon Dioxide 20 mmol/L (22-29); Chloride 108 mmol/L (96-108); Creatinine Clr Calc Pharmacy 12.4; Estimated Glomerular Filt Rate 7; Glucose Random 197 mg/dL (60-115); Magnesium 2.9 mg/dL (1.6-2.6); Potassium 5.3 mmol/L (3.3-5.1); Sodium 135 mmol/L (135-145); Total Protein 7.1 g/dL (6.5-8.0)
[2023-06-14 16:10] LABS: Troponin-I High Sensitivity 12.3 ng/L (<3.5-17.0)
[2023-06-14] MEDS: Tetracaine HCl/PF 0.5% Oph Sol 4 ML DROPS 1 DROP EYE-RIGHT (16:43)
[2023-06-14] MEDS: Fluorescein Sodium STRIP 1 STRIP EYE-RIGHT (16:43)
[2023-06-14 17:05] VITALS: BP 127/76; PULSE 81; RESP 18; TEMP 36.6; O2SAT 97
== END 2023-06-14 17:13 | disposition home or self-care (01) ==
PROVIDERS: Emergency Provider Emergency Medicine
DX: R56.9 Unspecified convulsions (principal); H40.059 Ocular hypertension, unspecified eye; I12.0 Hypertensive chronic kidney disease with stage 5 chronic kidney disease or end stage renal disease; E11.22 Type 2 diabetes mellitus with diabetic chronic kidney disease; N18.6 End stage renal disease; Z99.2 Dependence on renal dialysis
CPT/HCPCS: 36415; 80048; 80076; 80307; 83605; 83735; 84484; 85025; 85610; 93005; 99283; 99284

== ENCOUNTER → 2023-06-14 14:26 | Outpatient (BNV) | payer OTHER, SELFPAY | PROVIDERS: Emergency Provider Emergency Medicine; Visit Provider Internal Medicine | DX: R94.31 Abnormal electrocardiogram [ECG] [EKG] (principal) | CPT/HCPCS: 93010 ==

== ENCOUNTER 2023-06-16 13:47 | Inpatient (IN) | payer OTHER, SELFPAY ==
[2023-06-16] VITALS (7 sets, daily range): BP systolic 163–252; BP diastolic 77–140; PULSE 73–82; RESP 14–20; TEMP 36.4–36.6; O2SAT 94–100; BMI 33.9
--- NOTE | 2023-06-16 | ECG_ITS ---
Test Reason : SOB Blood Pressure : / mmHG Vent. Rate : 081 BPM Atrial Rate : 081 BPM P-R Int : 188 ms QRS Dur : 158 ms QT Int : 448 ms P-R-T Axes : 061 -22 091 degrees QTc Int : 520 ms Normal sinus rhythm Possible Left atrial enlargement Right bundle branch block Abnormal ECG When compared with ECG of 14-JUN-2023 15:08, T wave inversion now evident in Lateral leads Referred By: Generic ED Physician Electronically Signed By:JASKARAN COOL
--- NOTE | ~2023-06-16 | XR_ITS ---
Examination: XR foot RT min 3V, XR foot LT min 3V Indication: pain, chronic wound Comparison: 05/19/2023 Technique: 3 views of each foot obtained Findings: Right: Previous transmetatarsal amputation onward. There is associated soft tissue along the amputated skin surface with overlying bandage material. I do not appreciate any acute-appearing bony destructive lesion in this setting. No acute fracture or dislocation. No radiopaque foreign body or soft tissue gas. Mild vascular calcification seen. Left: Chronic bony deformities about the midfoot suggesting underlying neuropathic foot with the chronic amputation of the distal first metatarsal onward and fifth toe with chronic appearing bony deformities seen elsewhere. I do not appreciate any definitive acute superimposed fracture or dislocation. No obvious acute bony destructive lesions superimposed on these extensive chronic appearing and postoperative changes XR/XR foot RT min 3V Impression: Extensive chronic appearing and postoperative changes. I do not appreciate any acute superimposed fracture or dislocation. I do not appreciate any acute bony destructive lesions in this setting. If there is persistent clinical concern, MRI would be more sensitive.
--- NOTE | ~2023-06-16 | XR_ITS ---
Examination: XR foot RT min 3V, XR foot LT min 3V Indication: pain, chronic wound Comparison: 05/19/2023 Technique: 3 views of each foot obtained Findings: Right: Previous transmetatarsal amputation onward. There is associated soft tissue along the amputated skin surface with overlying bandage material. I do not appreciate any acute-appearing bony destructive lesion in this setting. No acute fracture or dislocation. No radiopaque foreign body or soft tissue gas. Mild vascular calcification seen. Left: Chronic bony deformities about the midfoot suggesting underlying neuropathic foot with the chronic amputation of the distal first metatarsal onward and fifth toe with chronic appearing bony deformities seen elsewhere. I do not appreciate any definitive acute superimposed fracture or dislocation. No obvious acute bony destructive lesions superimposed on these extensive chronic appearing and postoperative changes XR/XR foot LT min 3V Impression: Extensive chronic appearing and postoperative changes. I do not appreciate any acute superimposed fracture or dislocation. I do not appreciate any acute bony destructive lesions in this setting. If there is persistent clinical concern, MRI would be more sensitive.
[2023-06-16 15:33] LABS: MANUAL DIFF FLAG NO
[2023-06-16 15:39] LABS: Basophils Percent Auto 0.6 % (0-2); Eosinophils Absolute Auto 0.2 X10*3/uL (0.0-0.4); Eosinophils Percent Auto 5.9 % (0-4); Hematocrit 27.1 % (37.0-47.0); Hemoglobin 8.8 g/dl (12.0-16.0); Lymphocytes Absolute Auto 0.5 X10*3/uL (1.2-4.9); Lymphocytes Percent Auto 13.2 % (20-40); Mean Corpuscular HGB Conc 32.5 g/dl (31.0-35.0); Mean Corpuscular Hemoglobin 30.8 pg (27.0-33.0); Mean Corpuscular Volume 94.8 fL (80.0-98.0); Mean Platelet Volume 11.8 fL (9.4-12.3); Monocytes Absolute Auto 0.4 X10*3/uL (0.1-1.2); Monocytes Percent Auto 12.6 % (2-11); Neutrophils Absolute Auto 2.3 x10*3/uL (2.0-8.3); Neutrophils Percent Auto 67.7 % (45-73); Platelet Count 117 X10*3/uL (160-400); Red Blood Count 2.86 X10*6/uL (4.20-5.50); Red Cell Distribution Width 16.7 % (11.0-16.0); White Blood Count 3.4 X10*3/uL (4.8-10.8)
[2023-06-16 15:47] LABS: Lactic Acid 0.6 mmol/L (0.5-2.0)
[2023-06-16 15:59] LABS: Troponin-I High Sensitivity 20.4 ng/L (<3.5-17.0)
[2023-06-16 16:02] LABS: B Type Natriuretic Peptide 2928 pg/mL (<100)
[2023-06-16 16:10] LABS: Alanine Aminotransferase 14 U/L (0-31); Albumin Level 3.3 g/dL (3.5-5.0); Alkaline Phosphatase 124 U/L (39-117); Anion Gap 14 (12-20); Aspartate Amino Transferase 19 U/L (5-31); Bilirubin Total 0.7 mg/dL (0.0-1.0); Blood Urea Nitrogen 82 mg/dL (9-16); Calcium 8.5 mg/dL (8.4-10.2); Carbon Dioxide 16 mmol/L (22-29); Chloride 108 mmol/L (96-108); Creatinine Clr Calc Pharmacy 11.9; Estimated Glomerular Filt Rate 7; Glucose Random 113 mg/dL (60-115); Magnesium 3.1 mg/dL (1.6-2.6); Potassium 6.1 mmol/L (3.3-5.1); Sodium 132 mmol/L (135-145); Total Protein 7.6 g/dL (6.5-8.0)
[2023-06-16 16:12] LABS: Influenza A PCR NEGATIVE (Negative); Influenza B PCR NEGATIVE (Negative); Resp Syncy Virus RNA Qual PCR NEGATIVE (Negative); SARS COV2 PCR INHOUSE NEGATIVE (Negative)
--- NOTE | 2023-06-16 17:24 | ED.GENADULT ---
HPI - General Adult General Chief complaint: General Medical Stated complaint: SOB,BODY PAIN,NO DIALYSIS X1 WK,HIGH BP 252/140 Time Seen by Provider: 06/16/23 17:20 Source: patient and RN notes reviewed Mode of arrival: ambulatory Limitations: no limitations History of Present Illness HPI narrative: This is a 32-year-old with a history of ESRD on HD (TTS), kidney biopsy 2021, advanced diabetic nephropathy with 70% glomera sclerrosis, nodular sclerosis, severe interstitial fibrosis, nonischemic cardiomyopathy the, chronicHFpEF EF 40-50%, type 2 diabetes, gastroparesis, asthma, blindness in right eye, seizure disorder on Keppra, hypertension HTN, who presents to the emergency department complaints of body aches, nausea, vomiting, missed dialysis and and bilateral foot pain x 2 days. Patient reports that she had missed hemodialysis as she was admitted to [facility] due to recurrent seizures witnessed by family (see MDM). Patient states that she has not been to dialysis in over 1 week and her sister has been doing wound care for her feet. She is concerned of an infection in both of her feet. She denies any fevers, chills. She does endorse shortness of breath. She denies chest pain, abdominal pain, nausea, vomiting or diarrhea. No urinary symptoms. No other complaints or concerns at this time. MD complaint: Body aches, foot pain Onset (ago): day(s) Severity: moderate Quality: aching Pain Consistency: constant Relieving factors: none Exacerbating factors: none Associated symptoms: denies other symptoms Treatments prior to arrival: none Related Data Home Medications ?Medication ?Instructions ?Recorded ?Confirmed carvedilol 12.5 mg tablet 12.5 mg PO BID 06/05/23 06/05/23 cholecalciferol (vitamin D3) 50 50 mcg PO DAILY 06/05/23 06/05/23 mcg (2,000 unit) capsule docusate sodium 100 mg capsule 100 mg PO DAILY PRN constipation 06/05/23 06/05/23 hydralazine 100 mg tablet 50 mg PO TID 06/05/23 06/05/23 isosorbide mononitrate 30 mg 30 mg PO QAM 06/05/23 06/05/23 tablet,extended release 24 hr losartan 50 mg tablet 50 mg PO DAILY 04/09/24 04/09/24 torsemide 20 mg tablet 40 mg PO BID 06/05/23 06/05/23 Previous Rx's ?Medication ?Instructions ?Recorded off loading boot #1 ea 03/14/23 nifedipine 90 mg tablet,extended 90 mg PO DAILY #30 tabs 05/24/23 release 24 hr levetiracetam 250 mg tablet 250 mg PO BID #180 tabs 06/07/23 (Keppra) Allergies Allergy/AdvReac Type Severity Reaction Status Date / Time morphine [MORPHINE] Allergy Intermediate Itching Verified 06/16/23 14:12 azithromycin [From Zithromax] Allergy Hives Verified 06/16/23 14:12 gabapentin Allergy Facial Verified 06/16/23 14:12 Swelling tramadol Allergy Facial Verified 06/16/23 14:12 Swelling vancomycin Allergy Anaphylaxis Verified 06/16/23 14:12 Review of Systems Review of Systems: Yes all other systems are reviewed and are negative Constitutional: Constitutional: Reports as per [facility] Past Medical History Attestation statement: The following information was validated with the patient. Medical History Hypertension End-stage renal disease (ESRD) Foot ulcer CKD (chronic kidney disease) Hypertension Anemia Diabetic foot Vomiting Renal failure Hypertension Hyperkalemia Metabolic acidosis HFrEF (heart failure with reduced ejection fraction) ESRD on dialysis Migraine Diabetic foot ulcer associated with type 2 diabetes mellitus Chronic pain Gastroparesis Non-compliance with renal dialysis Hypertensive emergency Diabetes ESRD needing dialysis Cardiomyopathy delivery delivered Anemia in chronic kidney disease (CKD) CKD (chronic kidney disease) Headache, migraine Abnormal finding on echocardiogram Elevated troponin Chest pain Acute worsening of stage 3 chronic kidney disease Generalized edema Sepsis Cellulitis Pleural effusion CHF (congestive heart failure) (~06/07/22) Tachycardia Atypical chest pain Bone infection PAD (peripheral artery disease) Severe anemia Cellulitis and abscess of foot DM foot ulcer Osteomyelitis test positive test positive Asthma Depression with anxiety Diabetic retinopathy Type 2 diabetes mellitus with hyperglycemia, with long-term current use of insulin Blind right eye Diabetes Back pain Surgical History 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 Family History Family History Mother Coronary artery disease Myocardial infarction Stroke Diabetes mellitus Father Myocardial infarction Social History Social History Household Members: Significant Other and Family Household Members Other:: Sister, [id number], nephew Housing: Apartment Do you presently have visiting nurse or other home services: No Unable to assess alcohol history related to: Unknown Alcohol intake: never 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 Patient Tobacco Use Status: Never used Tobacco e-Cigarette/Vaping Use: Never Used Second Hand Smoke Exposure: No Advance Directives: Yes Advance Directives on File: Yes Advance Directives Date on File: 03/08/20 service: No Current occupational status: unemployed and disabled Gender identity: Female Physical Exam ED Vital Signs: Vital Signs - 24 hr 06/16/23 14:08 06/16/23 17:02 06/16/23 18:34 Temperature 97.7 F 97.6 F Pulse Rate 82 77 Respiratory Rate 20 18 18 Blood Pressure 194/107 H 163/77 H Pulse Oximetry 94 94 Oxygen Delivery Method Room Air Room Air 06/16/23 19:37 06/16/23 20:14 06/16/23 22:16 Temperature 97.9 F 97.9 F Pulse Rate 74 73 76 Respiratory Rate 16 18 16 Blood Pressure 181/99 H 172/100 H 193/108 H Pulse Oximetry 94 95 95 Oxygen Delivery Method Room Air Nasal Cannula BiPAP Room Air 06/16/23 22:27 06/17/23 00:10 06/17/23 01:25 Temperature 97.8 F Pulse Rate 68 67 Respiratory Rate 14 16 16 Blood Pressure 165/92 H 192/100 H Pulse Oximetry 96 96 Oxygen Delivery Method Room Air Room Air BMI result Body Mass Index 33.9 Const General: cooperative, comfortable and no acute distress Orientation/consciousness: patient oriented x3 Limitations: no limitations HENMT Head: Yes normal to inspection, Yes normocephalic and Yes atraumatic Ears: hearing grossly normal bilaterally General nose exam: Normal external nose present Face and sinus: Yes normal facial exam Mouth: Normal oral and palatal mucosa present, oropharynx normal and moist mucous membranes Throat: Yes posterior oropharynx normal Eyes General: appearance normal, both eyes and all related structures Eyelids: Yes eyelids normal Conjunctivae: conjunctivae normal Sclerae: sclerae normal Pupils: Equal, round and reactive pupils present EOM: EOMs intact bilaterally Neck Neck: Yes normal visual inspection, Yes full ROM and Yes no lymphadenopathy Lymphatic: no lymphadenopathy noted Chest Chest palpation & inspection: normal inspection of the chest Resp Effort & Inspection: normal respiratory effort and able to speak in complete sentences Auscultation: clear to auscultation bilaterally, no crackles, no rales, no rhonchi and no wheezes Cardio Rate: regular rate Rhythm: regular rhythm Heart sounds: S1 normal heart sound present and S2 normal heart sound present GI Other: Abdomen is soft, nontender, nondistended Inspection: Yes normal to inspection Skin General skin exam: no rashes or lesions noted Trauma: no lacerations or abrasions Wounds: no wounds Neuro General: patient oriented x3 and moves all extremities Cranial nerves: Yes Equal, round and reactive pupils present Extrem Other: Right metatarsal amputation, with a subcentimeter chronic wound noted, no surrounding erythema or warmth, no drainage noted Left foot there is 1 cm plantar chronic wound, no purulent drainage, no surrounding erythema or induration. General: Yes normal to inspection Right upper extremity: normal to inspection Left upper extremity: normal to inspection Right lower extremity: normal to inspection Left lower extremity: normal to inspection Course Reevaluation(s) Reevaluation #1: X-rays reviewed revealing extensive chronic appearing and postoperative changes. Not appreciable any acute superimposed fracture or dislocation, no bony destructive lesions. Patient has a critical potassium of 6.1, creatinine 7.1 with a BUN of 82. Carbon dioxide 16, magnesium 3.1, alk phos 124, elevated troponin at 20.4, BNP 2928 and albumin 3.3. Patient has not received dialysis in over a week. Patient sees the [facility] dialysis center for her dialysis. They are closed on the weekend therefore will call [facility] for further guidance. Patient will likely need hospital admission for further workup and management and dialysis. Spoke to Dr. Trevino, bow stapler, who is very familiar with this patient. She recommends calcium gluconate, insulin, D50, and Lokelma, reviewed all dosages with bow stapler. Will speak to the hospitalist for transfer of care and may need dialysis in the morning. Patient is agreement. Recommending repeat potassium levels in 4 hours after receiving medications. Time: 22:08 Reevaluation #2: D10 was not administered as this order was not placed correctly. Patient became hypoglycemic at 29, patient given IV dextrose 2.5g x 4. she is alert and oriented will continue to closely monitor, will repeat blood glucose level in [address] Pal at bedside Reevaluation #3: Patient is blood sugar 109, she is alert, eating and drinking, under no acute distress. Potassium has improved to 5.6. Discussed findings with bow stapler, who recommends to keep patient overnight. Not requiring emergent dialysis however, Dr. Trevino recommends Lokelma Q8H, and she will follow-up with dialysis nurse to arrange dialysis as she likely will need this later on today or Sunday. Discussed with hospitalist Time: 01:33 Medications Administered Generic Name Dose Route Start Last Admin Trade Name Freq PRN Reason Stop Dose Admin Dextrose 250 mls @ 750 mls/hr 06/16/23 22:14 06/17/23 00:47 D10 IV 750 mls/hr Q15M PRN Administration per Hypoglycemia Standing Ord. Discontinued Medications Generic Name Dose Route Start Last Admin Trade Name Freq PRN Reason Stop Dose Admin Dextrose 2.5 gm 06/17/23 00:36 06/17/23 00:40 Dextrose 25 % 2.5 Gm/10 Ml Syringe IVPUSH 06/17/23 00:37 2.5 gm STAT STA Administration Dextrose 2.5 gm 06/17/23 00:37 06/17/23 00:40 Dextrose 25 % 2.5 Gm/10 Ml Syringe IVPUSH 06/17/23 00:38 2.5 gm STAT STA Administration Dextrose 2.5 gm 06/17/23 00:37 06/17/23 00:40 Dextrose 25 % 2.5 Gm/10 Ml Syringe IVPUSH 06/17/23 00:38 2.5 gm STAT STA Administration Dextrose 2.5 gm 06/17/23 00:37 06/17/23 00:40 Dextrose 25 % 2.5 Gm/10 Ml Syringe IVPUSH 06/17/23 00:38 2.5 gm STAT STA Administration Hydromorphone HCl 1 mg 06/16/23 18:21 06/16/23 18:34 Hydromorphone Hcl 1 Mg/Ml Syringe IVPUSH 06/16/23 18:22 1 mg ONCE ONE Administration Protocol Hydromorphone HCl 0.5 mg 06/16/23 22:20 06/16/23 22:27 Hydromorphone Hcl 0.5 Mg/0.5 Ml Syringe IVPUSH 06/16/23 22:21 0.5 mg ONCE ONE Administration Protocol Calcium Gluconate 2 gm in 100 mls @ 50 mls/hr 06/16/23 22:14 06/17/23 00:28 Calcium Gluconate IV 06/17/23 00:13 Infused ONCE ONE Infusion Insulin Human Regular 9 unit 06/16/23 22:14 06/16/23 22:28 Insulin Regular, Human 100 Unit/Ml 3 Ml Vial 0.1 unit/kg (9 unit) 06/16/23 22:15 9 unit IVPUSH Administration ONCE ONE Ondansetron HCl 4 mg 06/16/23 20:16 06/16/23 20:20 Ondansetron Hcl 4 Mg/2 Ml Vial IVPUSH 06/16/23 20:17 4 mg ONCE ONE Administration Sodium Zirconium Cyclosilicate 10 gm 06/16/23 22:13 06/16/23 22:27 Sodium Zirconium Cyclosilicate 10 Gm Powd.Pack PO 06/16/23 22:14 10 gm ONCE ONE Administration Medical Decision Making Medical Decision Making [facility] Narrative: This a 32-year-old with a history of ESRD on HD (TTS), kidney biopsy 2021, advanced diabetic nephropathy with 70% glomera sclerrosis, nodular sclerosis, severe interstitial fibrosis, nonischemic cardiomyopathy the, chronicHFpEF EF 40-50%, type 2 diabetes, gastroparesis, asthma, blindness in right eye, seizure disorder on Keppra, hypertension HTN, who presents to the emergency department complaints of body aches and bilateral foot pain x 2 days. On arrival, patient hypertensive at 194/107, she is nontoxic appearing. She expresses that she has not been to dialysis for the last week. She sees [facility], she states that she has not had dialysis in over a week. She is reporting diffuse body aches. Plan: Labs, EKG, viral swabs, x-ray Differential Diagnosis Differential Diagnoses: The differential diagnosis associated with the presentation includes Kidney failure, need for dialysis, gastritis, gastroenteritis, cellulitis Admission/Observation Consideration of admission/observation: Escalation of care including admission/observation considered Patient requiring admission Consult Healthcare Provider Management of the patient was discussed with: Science Tutor Dr. Trevino, bow stapler Lab Data [facility] Lab Attestation statement: I reviewed the patient's lab results. Slight leukopenia at 3.4, H&H 8.8/27.1, hyponatremic at 132, potassium 6.1, carbon dioxide 16, BUN 82, creatinine 7.19, magnesium 3.1, alk phos 124, troponin 20.4, BNP 2 928, albumin 3.3. 06/16/23 15:26 06/17/23 01:07 Labs: Lab Results 06/16/23 06/16/23 06/16/23 Range/Units 15:25 15:26 22:16 WBC 3.4 L (4.8-10.8) X10*3/uL RBC 2.86 L (4.20-5.50) X10*6/uL Hgb 8.8 L (12.0-16.0) g/dl Hct 27.1 L (37.0-47.0) % MCV 94.8 (80.0-98.0) fL MCH 30.8 (27.0-33.0) pg MCHC 32.5 (31.0-35.0) g/dl RDW 16.7 H (11.0-16.0) % Plt Count 117 L (160-400) X10*3/uL MPV 11.8 (9.4-12.3) fL Immature Gran % (Auto) 0.0 (0.0-0.4) % Neut % (Auto) 67.7 (45-73) % Lymph % (Auto) 13.2 L (20-40) % [place] % (Auto) 12.6 H (2-11) % Eos % (Auto) 5.9 H (0-4) % Baso % (Auto) 0.6 (0-2) % Lymph # (Auto) 0.5 L (1.2-4.9) X10*3/uL [place] # (Auto) 0.4 (0.1-1.2) X10*3/uL Eos # (Auto) 0.2 (0.0-0.4) X10*3/uL Baso # (Auto) 0.0 (0.0-0.2) X10*3/uL Abs Immat Gran (auto) 0.00 (0.00-0.03) X10*3/uL Absolute Neuts (auto) 2.3 (2.0-8.3) x10*3/uL Absolute Nucleated RBC 0.000 (0.0-0.012) X10*3/uL Nucleated RBC % (auto) 0.0 (0.0-0.2) /100WBC Sodium 132 L (135-145) mmol/L Potassium 6.1 H* (3.3-5.1) mmol/L Chloride 108 (96-108) mmol/L Carbon Dioxide 16 L (22-29) mmol/L Anion Gap 14 (12-20) BUN 82 H (9-16) mg/dL Creatinine 7.19 H* (0.5-1.4) mg/dL Estim Creat Clear Calc 11.9 Estimated GFR 7 POC Glucose (60-115) mg/dL Random Glucose 113 (60-115) mg/dL Lactic Acid 0.6 (0.5-2.0) mmol/L Calcium 8.5 D (8.4-10.2) mg/dL Magnesium 3.1 H (1.6-2.6) mg/dL Total Bilirubin 0.7 (0.0-1.0) mg/dL AST 19 (5-31) U/L ALT 14 (0-31) U/L Alkaline Phosphatase 124 H (39-117) U/L Troponin I High Sens 20.4 H D 21.2 H (<3.5-17.0) ng/L B-Natriuretic Peptide 2928 H (<100) pg/mL Total Protein 7.6 (6.5-8.0) g/dL Albumin 3.3 L (3.5-5.0) g/dL Influenza Type A (PCR) NEGATIVE (Negative) Influenza Type B (PCR) NEGATIVE (Negative) RSV RNA Qual (PCR) NEGATIVE (Negative) SARS-CoV-2 RNA (RT-PCR) NEGATIVE (Negative) 06/16/23 06/17/23 06/17/23 Range/Units 22:43 00:12 00:24 WBC (4.8-10.8) X10*3/uL RBC (4.20-5.50) X10*6/uL Hgb (12.0-16.0) g/dl Hct (37.0-47.0) % MCV (80.0-98.0) fL MCH (27.0-33.0) pg MCHC (31.0-35.0) g/dl RDW (11.0-16.0) % Plt Count (160-400) X10*3/uL MPV (9.4-12.3) fL Immature Gran % (Auto) (0.0-0.4) % Neut % (Auto) (45-73) % Lymph % (Auto) (20-40) % [place] % (Auto) (2-11) % Eos % (Auto) (0-4) % Baso % (Auto) (0-2) % Lymph # (Auto) (1.2-4.9) X10*3/uL [place] # (Auto) (0.1-1.2) X10*3/uL Eos # (Auto) (0.0-0.4) X10*3/uL Baso # (Auto) (0.0-0.2) X10*3/uL Abs Immat Gran (auto) (0.00-0.03) X10*3/uL Absolute Neuts (auto) (2.0-8.3) x10*3/uL Absolute Nucleated RBC (0.0-0.012) X10*3/uL Nucleated RBC % (auto) (0.0-0.2) /100WBC Sodium (135-145) mmol/L Potassium (3.3-5.1) mmol/L Chloride (96-108) mmol/L Carbon Dioxide (22-29) mmol/L Anion Gap (12-20) BUN (9-16) mg/dL Creatinine (0.5-1.4) mg/dL Estim Creat Clear Calc Estimated GFR POC Glucose 91 29 L* 64 (60-115) mg/dL Random Glucose (60-115) mg/dL Lactic Acid (0.5-2.0) mmol/L Calcium (8.4-10.2) mg/dL Magnesium (1.6-2.6) mg/dL Total Bilirubin (0.0-1.0) mg/dL AST (5-31) U/L ALT (0-31) U/L Alkaline Phosphatase (39-117) U/L Troponin I High Sens (<3.5-17.0) ng/L B-Natriuretic Peptide (<100) pg/mL Total Protein (6.5-8.0) g/dL Albumin (3.5-5.0) g/dL Influenza Type A (PCR) (Negative) Influenza Type B (PCR) (Negative) RSV RNA Qual (PCR) (Negative) SARS-CoV-2 RNA (RT-PCR) (Negative) 06/17/23 06/17/23 06/17/23 Range/Units 00:45 00:58 01:07 WBC (4.8-10.8) X10*3/uL RBC (4.20-5.50) X10*6/uL Hgb (12.0-16.0) g/dl Hct (37.0-47.0) % MCV (80.0-98.0) fL MCH (27.0-33.0) pg MCHC (31.0-35.0) g/dl RDW (11.0-16.0) % Plt Count (160-400) X10*3/uL MPV (9.4-12.3) fL Immature Gran % (Auto) (0.0-0.4) % Neut % (Auto) (45-73) % Lymph % (Auto) (20-40) % [place] % (Auto) (2-11) % Eos % (Auto) (0-4) % Baso % (Auto) (0-2) % Lymph # (Auto) (1.2-4.9) X10*3/uL [place] # (Auto) (0.1-1.2) X10*3/uL Eos # (Auto) (0.0-0.4) X10*3/uL Baso # (Auto) (0.0-0.2) X10*3/uL Abs Immat Gran (auto) (0.00-0.03) X10*3/uL Absolute Neuts (auto) (2.0-8.3) x10*3/uL Absolute Nucleated RBC (0.0-0.012) X10*3/uL Nucleated RBC % (auto) (0.0-0.2) /100WBC Sodium 132 L (135-145) mmol/L Potassium 5.6 H (3.3-5.1) mmol/L Chloride 109 H (96-108) mmol/L Carbon Dioxide 13 L (22-29) mmol/L Anion Gap 16 (12-20) BUN 88 H (9-16) mg/dL Creatinine 7.57 H* (0.5-1.4) mg/dL Estim Creat Clear Calc 11.3 Estimated GFR 6 POC Glucose 56 L* 129 H (60-115) mg/dL Random Glucose 93 (60-115) mg/dL Lactic Acid (0.5-2.0) mmol/L Calcium 8.9 (8.4-10.2) mg/dL Magnesium (1.6-2.6) mg/dL Total Bilirubin (0.0-1.0) mg/dL AST (5-31) U/L ALT (0-31) U/L Alkaline Phosphatase (39-117) U/L Troponin I High Sens (<3.5-17.0) ng/L B-Natriuretic Peptide (<100) pg/mL Total Protein (6.5-8.0) g/dL Albumin (3.5-5.0) g/dL Influenza Type A (PCR) (Negative) Influenza Type B (PCR) (Negative) RSV RNA Qual (PCR) (Negative) SARS-CoV-2 RNA (RT-PCR) (Negative) 06/17/23 Range/Units 01:16 WBC (4.8-10.8) X10*3/uL RBC (4.20-5.50) X10*6/uL Hgb (12.0-16.0) g/dl Hct (37.0-47.0) % MCV (80.0-98.0) fL MCH (27.0-33.0) pg MCHC (31.0-35.0) g/dl RDW (11.0-16.0) % Plt Count (160-400) X10*3/uL MPV (9.4-12.3) fL Immature Gran % (Auto) (0.0-0.4) % Neut % (Auto) (45-73) % Lymph % (Auto) (20-40) % [place] % (Auto) (2-11) % Eos % (Auto) (0-4) % Baso % (Auto) (0-2) % Lymph # (Auto) (1.2-4.9) X10*3/uL [place] # (Auto) (0.1-1.2) X10*3/uL Eos # (Auto) (0.0-0.4) X10*3/uL Baso # (Auto) (0.0-0.2) X10*3/uL Abs Immat Gran (auto) (0.00-0.03) X10*3/uL Absolute Neuts (auto) (2.0-8.3) x10*3/uL Absolute Nucleated RBC (0.0-0.012) X10*3/uL Nucleated RBC % (auto) (0.0-0.2) /100WBC Sodium (135-145) mmol/L Potassium (3.3-5.1) mmol/L Chloride (96-108) mmol/L Carbon Dioxide (22-29) mmol/L Anion Gap (12-20) BUN (9-16) mg/dL Creatinine (0.5-1.4) mg/dL Estim Creat Clear Calc Estimated GFR POC Glucose 87 (60-115) mg/dL Random Glucose (60-115) mg/dL Lactic Acid (0.5-2.0) mmol/L Calcium (8.4-10.2) mg/dL Magnesium (1.6-2.6) mg/dL Total Bilirubin (0.0-1.0) mg/dL AST (5-31) U/L ALT (0-31) U/L Alkaline Phosphatase (39-117) U/L Troponin I High Sens (<3.5-17.0) ng/L B-Natriuretic Peptide (<100) pg/mL Total Protein (6.5-8.0) g/dL Albumin (3.5-5.0) g/dL Influenza Type A (PCR) (Negative) Influenza Type B (PCR) (Negative) RSV RNA Qual (PCR) (Negative) SARS-CoV-2 RNA (RT-PCR) (Negative) Radiology Impression Discussion of test interpretation with radiology: I have reviewed the radiologist's reading. Radiologist Impression: XR/XR foot RT min 3V Impression: Extensive chronic appearing and postoperative changes. I do not appreciate any acute superimposed fracture or dislocation. I do not appreciate any acute bony destructive lesions in this setting. If there is persistent clinical concern, MRI would be more sensitive. Dictated By: O'Trey,Jose Manuel T MD External Record Review External record reviewed: Inpatient record Patient was admitted to [facility] on 06/11 and was discharged on 06/12 she was found to have but multiple recurrent seizures witnessed by family. In the emergency room she was found to have hypertensive urgency. Ordered seizures were breakthrough versus noncompliant with medications. She refused EEG. She was seen by Neurology and Keppra dose was increased. It appears that she was admitted due to recurrent seizures witnessed by family. per [facility] Medical records, patient refused to do dialysis on before due to pain. Her nose, she does have a vitreous detachment with right eye blindness. Critical Care Time Critical Care Time Critical Care Time: Yes Total Critical Care Time: 70 Attestation: I have personally provided critical care time exclusive of time spent on separately billable procedures. Time includes review of lab data, radiology results, discussion with consultants, and monitoring for potential decompensation. Intervention performed as documented. Discharge Plan Discharge Clinical Impression: End-stage renal disease (ESRD) Patient Disposition: Admitted As Inpatient Print Language: [place]
[2023-06-16] MEDS: HYDROmorphone HCl 1 MG/ML SYRINGE IVPUSH (18:34)
--- NOTE | 2023-06-16 19:39 | MHC.EDTECH ---
This tech took over care of patient at 1900,hourly rounds and vitals completed,BP elevated 181/99 RN Kelly made aware,patient vomited 100MLS of bile,call moore in reach
[2023-06-16] MEDS: ondansetron HCL 4 MG/2 ML VIAL IVPUSH (20:20)
--- NOTE | 2023-06-16 20:37 | PC.NURSE ---
Patient medicated with Zofran 4 mg IV for nausea. Patient reports pain in b/l lower legs 3/10 at present, at tolerable level.
--- NOTE | 2023-06-16 22:17 | MHC.EDTECH ---
Hourly rounds and vitals completed,BP elevated 193/108 RN aware,labs obtained and sent to lab.
[2023-06-16] MEDS: Sodium Zirconium Cyclosilicate 10 GM POWD.PACK PO (22:27)
[2023-06-16] MEDS: Calcium Gluconate/NaCl,Iso-Osm 2 GM/100 ML PLAST..BAG IV (22:27)
[2023-06-16] MEDS: HYDROmorphone HCl 0.5 MG/0.5 ML SYRINGE IVPUSH (22:27)
[2023-06-16] MEDS: Insulin Regular, Human 100 UNIT/ML 3 ML VIAL 9 UNIT IVPUSH (22:28)
[2023-06-16 22:43] LABS: Troponin-I High Sensitivity 21.2 ng/L (<3.5-17.0)
[2023-06-16 22:47] LABS: Glucose, Whole Blood 91 mg/dL (60-115)
[2023-06-17] VITALS (11 sets, daily range): BP systolic 105–202; BP diastolic 41–112; PULSE 65–72; RESP 16–20; TEMP 36–37.2; O2SAT 94–98
[2023-06-17 00:17] LABS: Glucose, Whole Blood 29 mg/dL (60-115)
--- NOTE | 2023-06-17 00:17 | MHC.EDTECH ---
Hourly rounds and vitals completed,upon entry to room patient was sweaty and very clammy,POC obtained and is 29,RN Kelly at bedside with Larissa SIGALA.
[2023-06-17 00:30] LABS: Glucose, Whole Blood 64 mg/dL (60-115)
[2023-06-17] MEDS: Dextrose 25 % 2.5 GM/10 ML SYRINGE IVPUSH ×4 (00:40)
--- NOTE | 2023-06-17 00:46 | MHC.EDTECH ---
POC 56,RN and MD aware
[2023-06-17] MEDS: Dextrose 10 % 250 ML 750 ML IV (00:47)
--- NOTE | 2023-06-17 00:59 | MHC.EDTECH ---
POC taken and is 129 RN at bedside
[2023-06-17 01:03] LABS: Glucose, Whole Blood 129 mg/dL (60-115)
--- NOTE | 2023-06-17 01:11 | MHC.EDTECH ---
Patient was giving two cups of OJ and alessio crackers
--- NOTE | 2023-06-17 01:17 | MHC.EDTECH ---
Patient drank all of juice,POC taken and is 87 RN aware
[2023-06-17 01:25] LABS: Glucose, Whole Blood 87 mg/dL (60-115)
[2023-06-17 01:25] LABS: Glucose, Whole Blood 56 mg/dL (60-115)
--- NOTE | 2023-06-17 01:26 | MHC.EDTECH ---
Vitals taken BP is elevated 192/100 RN made aware. POC taken and is 109 RN aware
[2023-06-17 01:29] LABS: Anion Gap 16 (12-20); Blood Urea Nitrogen 88 mg/dL (9-16); Calcium 8.9 mg/dL (8.4-10.2); Carbon Dioxide 13 mmol/L (22-29); Chloride 109 mmol/L (96-108); Creatinine Clr Calc Pharmacy 11.3; Estimated Glomerular Filt Rate 6; Glucose Random 93 mg/dL (60-115); Potassium 5.6 mmol/L (3.3-5.1); Sodium 132 mmol/L (135-145)
[2023-06-17 01:34] LABS: Glucose, Whole Blood 109 mg/dL (60-115)
[2023-06-17 01:48] LABS: Glucose, Whole Blood 190 mg/dL (60-115)
--- NOTE | 2023-06-17 01:52 | MHC.EDTECH ---
Vitals taken Larissa SIGALA made aware,Belongings list completed
--- NOTE | 2023-06-17 01:59 | MHC.EDTECH ---
POC is 178,RN aware
[2023-06-17 02:03] LABS: Glucose, Whole Blood 178 mg/dL (60-115)
[2023-06-17 02:36] LABS: Glucose, Whole Blood 160 mg/dL (60-115)
[2023-06-17 03:03] LABS: Glucose, Whole Blood 152 mg/dL (60-115)
[2023-06-17] MEDS: levETIRAcetam 250 MG TABLET PO (03:53)
[2023-06-17] MEDS: carvediloL 12.5 MG TABLET PO ×2 (03:53→21:57)
[2023-06-17] MEDS: oxyCODONE HCl Immed Release 5 MG TABLET PO (03:59)
[2023-06-17] MEDS: hydrALAZINE HCl 50 MG TABLET PO ×4 (03:59→21:56)
--- NOTE | 2023-06-17 04:16 | MHC.EDTECH ---
Hourly rounds and vitals completed,POC taken and is 148,RN aware.
[2023-06-17 04:19] LABS: Glucose, Whole Blood 148 mg/dL (60-115)
--- NOTE | 2023-06-17 04:32 | PC.NURSE ---
Per Dr. Noonan verbal order, OK to check blood glucose, POC Q4H.
--- NOTE | 2023-06-17 05:21 | P.HPHOSP_ITS ---
History of Present Illness Date of Service: 06/17/23 Attending physician on admission: Lele Maria Chief Complaint: Infected ulcers Shereen Taylor is a 32 years old woman well known to the hospitalist service who has history of end-stage renal disease on hemodialysis (TTS), hypertension, gastroparesis, asthma, blindness, seizure disorder, severe interstitial fibrosis, HFrEG (40-50%), chronic diabetic foot ulcers and type 2 diabetes mellitus was brought to the emergency department by EMS complaining of body aches. Also complaining of nausea, vomiting and bilateral foot pain over the last 2 days. Denies headache, chest pain, fever, chills or shortness on breath. She stated that she has not had hemodialysis for 1 week because she was hospitalized at [facility] for seizures. Patient is a very vague historian. Patient has had numerous hospitalizations for urgent hemodialysis as she is noncompliant with hemodialysis on Sunday. In the ED, she was found to have hypertension. There is no tachycardia, hypotension or low O2 sats. Blood workup is remarkable for pancytopenia. Initial potassium was 6.1. These metabolic acidosis (CO2 is 16). BNP is elevated but lower than prior. Troponin is slightly elevated, but stable. Magnesium is 3.1. Foot x-ray showed no evidence of acute breath of fracture, dislocation or bony destructive lesions. ED Tx: Dilaudid 1.5 mg IV, multiple doses of D25, Lokelma 10 g p.o., insulin 9 units IV, calcium gluconate 2 g IV, Zofran 4 mg IV, acetaminophen 975 mg p.o.. Review of Systems 2 Review of Systems: Yes Unobtainable due to mental condition [facility] Medical History Hypertension End-stage renal disease (ESRD) Foot ulcer CKD (chronic kidney disease) Hypertension Anemia Diabetic foot Vomiting Renal failure Hypertension Hyperkalemia Metabolic acidosis HFrEF (heart failure with reduced ejection fraction) ESRD on dialysis Migraine Diabetic foot ulcer associated with type 2 diabetes mellitus Chronic pain Gastroparesis Non-compliance with renal dialysis Hypertensive emergency Diabetes ESRD needing dialysis Cardiomyopathy delivery delivered Anemia in chronic kidney disease (CKD) CKD (chronic kidney disease) Headache, migraine Abnormal finding on echocardiogram Elevated troponin Chest pain Acute worsening of stage 3 chronic kidney disease Generalized edema Sepsis Cellulitis Pleural effusion CHF (congestive heart failure) (~06/07/22) Tachycardia Atypical chest pain Bone infection PAD (peripheral artery disease) Severe anemia Cellulitis and abscess of foot DM foot ulcer Osteomyelitis test positive test positive Asthma Depression with anxiety Diabetic retinopathy Type 2 diabetes mellitus with hyperglycemia, with long-term current use of insulin Blind right eye Diabetes Back pain Family History Mother Coronary artery disease Myocardial infarction Stroke Diabetes mellitus Father Myocardial infarction Surgical History 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 Social History Household Members: Significant Other and Family Household Members Other:: Sister, [id number], nephew Housing: Apartment Do you presently have visiting nurse or other home services: No Unable to assess alcohol history related to: Unknown Alcohol intake: never 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 Patient Tobacco Use Status: Never used Tobacco e-Cigarette/Vaping Use: Never Used Second Hand Smoke Exposure: No Advance Directives: Yes Advance Directives on File: Yes Advance Directives Date on File: 03/08/20 Nutrition Risks: No Nutritional Risk service: No Current occupational status: unemployed and disabled Gender identity: Female Meds Allergies Allergy/AdvReac Type Severity Reaction Status Date / Time morphine [MORPHINE] Allergy Intermediate Itching Verified 06/16/23 14:12 azithromycin [From Zithromax] Allergy Hives Verified 06/16/23 14:12 gabapentin Allergy Facial Verified 06/16/23 14:12 Swelling tramadol Allergy Facial Verified 06/16/23 14:12 Swelling vancomycin Allergy Anaphylaxis Verified 06/16/23 14:12 Active Medications: Current Medications Acetaminophen (Acetaminophen 325 Mg Tablet) 975 mg PO Q6H PRN PRN Reason: Pain, Moderate(Pain Scale 4-6) Carvedilol (Carvedilol 12.5 Mg Tablet) 12.5 mg PO BID [facility]; Protocol Last Admin: 06/17/23 03:53 Dose: 12.5 mg Docusate Sodium (Docusate Sodium 100 Mg Capsule) 100 mg PO DAILY PRN PRN Reason: constipation Hydralazine HCl (Hydralazine Hcl 50 Mg Tablet) 50 mg PO TID [facility]; Protocol Last Admin: 06/17/23 03:59 Dose: 50 mg Dextrose (D10) 250 mls @ 750 mls/hr IV Q15M PRN PRN Reason: per Hypoglycemia Standing Ord. Last Infusion: 06/17/23 01:07 Dose: Infused Isosorbide Mononitrate (Isosorbide Mononitrate 30 Mg Tab.Er.24h) 30 mg PO DAILY [facility]; Protocol Levetiracetam (Levetiracetam 250 Mg Tablet) 250 mg PO BID [facility] Last Admin: 06/17/23 03:53 Dose: 250 mg Losartan Potassium (Losartan Potassium 50 Mg Tablet) 50 mg PO DAILY [facility]; Protocol Nifedipine (Nifedipine Er 90 Mg Tab.Er.24) 90 mg PO DAILY [facility]; Protocol Ondansetron HCl (Ondansetron Hcl 4 Mg/2 Ml Vial) 4 mg IVPUSH Q6H PRN PRN Reason: Nausea and Vomiting Oxycodone HCl (Oxycodone Hcl Immed Release 5 Mg Tablet) 5 mg PO Q6H PRN PRN Reason: Pain, Severe (Pain Scale 7-10) Last Admin: 06/17/23 03:59 Dose: 5 mg Sodium Chloride (0.9 % Sodium Chloride Flush 3 Ml Syringe) 3 ml IVFLUSH [facility] Vitamin D (Cholecalciferol (Vitamin D3) 25 Mcg Tablet) 50 mcg PO DAILY [facility] Home Medications ?Medication ?Instructions ?Recorded ?Confirmed ?Last Taken ?Type carvedilol 12.5 mg tablet 12.5 mg PO BID 06/05/23 06/17/23 Unknown History cholecalciferol (vitamin D3) 50 50 mcg PO DAILY 06/05/23 06/17/23 Unknown History mcg (2,000 unit) capsule docusate sodium 100 mg capsule 100 mg PO DAILY PRN constipation 06/05/23 06/17/23 Unknown History hydralazine 100 mg tablet 50 mg PO TID 06/05/23 06/17/23 Unknown History isosorbide mononitrate 30 mg 30 mg PO QAM 06/05/23 06/17/23 Unknown History tablet,extended release 24 hr losartan 50 mg tablet 50 mg PO DAILY 06/05/23 06/17/23 Unknown History torsemide 20 mg tablet 40 mg PO BID 06/05/23 06/05/23 Unknown History Physical Exam 2 Vital Signs and Narrative: Vital Signs: Last Vital Signs Temp 98.9 F 06/17/23 04:04 Pulse 72 06/17/23 04:04 Resp 18 06/17/23 04:04 BP 157/90 H 06/17/23 04:04 Pulse Ox 95 06/17/23 04:04 O2 Del Method Room Air 06/17/23 04:04 BMI result Body Mass Index 33.9 Constitutional - Awake and Alert. Chronically ill. Afebrile. HEENT: Heart - S1S2, RRR, No edema Lungs - Normal lung expansion, Normal respiratory effort, No respiratory distress, CTA bilaterally Abdomen- NT / ND; +BS; No rebound or guarding - No CVA tenderness Extremities: JUNE 04, 2023: JUNE 16, 2023: Musculoskeletal - Normal inspection, normal ROM Skin - Warm/Dry Neurological - Alert & oriented x3, CN II-XII in tact, 5/5 strength BUE and BLE Psychological - Appropriate affect Results Labs 06/16/23 15:26 06/17/23 01:07 Labs: Laboratory Results - last 24 hr 06/16/23 06/16/23 06/16/23 15:25 15:26 22:16 MCV 94.8 MCH 30.8 MCHC 32.5 RDW 16.7 H Plt Count 117 L MPV 11.8 Immature Gran % (Auto) 0.0 Neut % (Auto) 67.7 Lymph % (Auto) 13.2 L [place] % (Auto) 12.6 H Eos % (Auto) 5.9 H Baso % (Auto) 0.6 Lymph # (Auto) 0.5 L [place] # (Auto) 0.4 Eos # (Auto) 0.2 Baso # (Auto) 0.0 Abs Immat Gran (auto) 0.00 Absolute Neuts (auto) 2.3 Absolute Nucleated RBC 0.000 Nucleated RBC % (auto) 0.0 Anion Gap 14 Estim Creat Clear Calc 11.9 Estimated GFR 7 POC Glucose Random Glucose 113 Lactic Acid 0.6 Calcium 8.5 D Magnesium 3.1 H Total Bilirubin 0.7 AST 19 ALT 14 Alkaline Phosphatase 124 H Troponin I High Sens 20.4 H D 21.2 H B-Natriuretic Peptide 2928 H Total Protein 7.6 Albumin 3.3 L Influenza Type A (PCR) NEGATIVE Influenza Type B (PCR) NEGATIVE RSV RNA Qual (PCR) NEGATIVE SARS-CoV-2 RNA (RT-PCR) NEGATIVE 06/16/23 06/17/23 06/17/23 22:43 00:12 00:24 MCV MCH MCHC RDW Plt Count MPV Immature Gran % (Auto) Neut % (Auto) Lymph % (Auto) [place] % (Auto) Eos % (Auto) Baso % (Auto) Lymph # (Auto) [place] # (Auto) Eos # (Auto) Baso # (Auto) Abs Immat Gran (auto) Absolute Neuts (auto) Absolute Nucleated RBC Nucleated RBC % (auto) Anion Gap Estim Creat Clear Calc Estimated GFR POC Glucose 91 29 L* 64 Random Glucose Lactic Acid Calcium Magnesium Total Bilirubin AST ALT Alkaline Phosphatase Troponin I High Sens B-Natriuretic Peptide Total Protein Albumin Influenza Type A (PCR) Influenza Type B (PCR) RSV RNA Qual (PCR) SARS-CoV-2 RNA (RT-PCR) 06/17/23 06/17/23 06/17/23 00:45 00:58 01:07 MCV MCH MCHC RDW Plt Count MPV Immature Gran % (Auto) Neut % (Auto) Lymph % (Auto) [place] % (Auto) Eos % (Auto) Baso % (Auto) Lymph # (Auto) [place] # (Auto) Eos # (Auto) Baso # (Auto) Abs Immat Gran (auto) Absolute Neuts (auto) Absolute Nucleated RBC Nucleated RBC % (auto) Anion Gap 16 Estim Creat Clear Calc 11.3 Estimated GFR 6 POC Glucose 56 L* 129 H Random Glucose 93 Lactic Acid Calcium 8.9 Magnesium Total Bilirubin AST ALT Alkaline Phosphatase Troponin I High Sens B-Natriuretic Peptide Total Protein Albumin Influenza Type A (PCR) Influenza Type B (PCR) RSV RNA Qual (PCR) SARS-CoV-2 RNA (RT-PCR) 06/17/23 06/17/23 06/17/23 01:16 01:28 01:43 MCV MCH MCHC RDW Plt Count MPV Immature Gran % (Auto) Neut % (Auto) Lymph % (Auto) [place] % (Auto) Eos % (Auto) Baso % (Auto) Lymph # (Auto) [place] # (Auto) Eos # (Auto) Baso # (Auto) Abs Immat Gran (auto) Absolute Neuts (auto) Absolute Nucleated RBC Nucleated RBC % (auto) Anion Gap Estim Creat Clear Calc Estimated GFR POC Glucose 87 109 190 H Random Glucose Lactic Acid Calcium Magnesium Total Bilirubin AST ALT Alkaline Phosphatase Troponin I High Sens B-Natriuretic Peptide Total Protein Albumin Influenza Type A (PCR) Influenza Type B (PCR) RSV RNA Qual (PCR) SARS-CoV-2 RNA (RT-PCR) 06/17/23 06/17/23 06/17/23 01:58 02:31 02:59 MCV MCH MCHC RDW Plt Count MPV Immature Gran % (Auto) Neut % (Auto) Lymph % (Auto) [place] % (Auto) Eos % (Auto) Baso % (Auto) Lymph # (Auto) [place] # (Auto) Eos # (Auto) Baso # (Auto) Abs Immat Gran (auto) Absolute Neuts (auto) Absolute Nucleated RBC Nucleated RBC % (auto) Anion Gap Estim Creat Clear Calc Estimated GFR POC Glucose 178 H 160 H 152 H Random Glucose Lactic Acid Calcium Magnesium Total Bilirubin AST ALT Alkaline Phosphatase Troponin I High Sens B-Natriuretic Peptide Total Protein Albumin Influenza Type A (PCR) Influenza Type B (PCR) RSV RNA Qual (PCR) SARS-CoV-2 RNA (RT-PCR) 06/17/23 04:14 MCV MCH MCHC RDW Plt Count MPV Immature Gran % (Auto) Neut % (Auto) Lymph % (Auto) [place] % (Auto) Eos % (Auto) Baso % (Auto) Lymph # (Auto) [place] # (Auto) Eos # (Auto) Baso # (Auto) Abs Immat Gran (auto) Absolute Neuts (auto) Absolute Nucleated RBC Nucleated RBC % (auto) Anion Gap Estim Creat Clear Calc Estimated GFR POC Glucose 148 H Random Glucose Lactic Acid Calcium Magnesium Total Bilirubin AST ALT Alkaline Phosphatase Troponin I High Sens B-Natriuretic Peptide Total Protein Albumin Influenza Type A (PCR) Influenza Type B (PCR) RSV RNA Qual (PCR) SARS-CoV-2 RNA (RT-PCR) Imaging Radiologist's Impressions: Impressions Foot X-Ray 06/16/23 18:26 Impression: Extensive chronic appearing and postoperative changes. I do not appreciate any acute superimposed fracture or dislocation. I do not appreciate any acute bony destructive lesions in this setting. If there is persistent clinical concern, MRI would be more sensitive. Foot X-Ray 06/16/23 18:26 Impression: Extensive chronic appearing and postoperative changes. I do not appreciate any acute superimposed fracture or dislocation. I do not appreciate any acute bony destructive lesions in this setting. If there is persistent clinical concern, MRI would be more sensitive. Assessment and Plan (1) Cellulitis: Qualifiers: Site of cellulitis: extremity Site of cellulitis of extremity: lower extremity Laterality: left Qualified Code(s): L03.116 - Cellulitis of left lower limb Status: Acute (2) Hypertension: Qualifiers: Hypertension type: renovascular hypertension Qualified Code(s): I15.0 - Renovascular hypertension Status: Acute (3) Type 2 diabetes mellitus with hyperglycemia, with long-term current use of insulin: Status: Acute (4) End-stage renal disease (ESRD): Status: Acute (5) Foot ulcer: Qualifiers: Laterality: left Non-pressure ulcer stage: with other severity Q ualified Code(s): L97.528 - Non-pressure chronic ulcer of other part of left foot with other specified severity Status: Acute Plan Shereen Taylor is a 32 years old woman admitted with: * Hyperkalemia and metabolic lactic acidosis in the setting of underlying end- stage renal disease on HD + noncompliance with hemodialysis on Saturdays. Admit to hospitalist service. Nephrology consult for inpatient hemodialysis. * Uncontrolled hypertension. Continue nifedipine, hydralazine, carvedilol and losartan. * Hyponatremia, mild. Continue to monitor. * Chronic diabetic left foot ulcer, associated cellulitis. Check CRP. Start empiric IV antibiotic therapy with doxycycline. Left foot MRI. * Type 2 diabetes mellitus. Blood glucose monitoring before meals at bedtime. Diabetic diet. Insulin sliding scale. * HFrEF/cardiomyopathy. Not decompensated. * Seizure disorder. Continue Depakote. * Chronic anemia. Continue to monitor. DVT prophylaxis: Heparin Code status: Full Patient will need hospitalization for at least 2 midnights for urgent hemodialysis and possible left foot ulcer infection treatment with IV antibiotic therapy and further evaluation with left foot MRI to assess for left foot osteomyelitis. Quality Stroke Does the patient have a stroke diagnosis?: No VTE Prior VTE?: No VTE Risk Level:: Medical - moderate - high VTE Device Contraindication: N/A - Device Ordered VTE Drug Contraindication: N/A - Med Ordered
[2023-06-17 05:40] LABS: MANUAL DIFF FLAG NO
[2023-06-17 05:43] LABS: Basophils Percent Auto 0.7 % (0-2); Eosinophils Absolute Auto 0.1 X10*3/uL (0.0-0.4); Eosinophils Percent Auto 4.4 % (0-4); Hematocrit 27.1 % (37.0-47.0); Hemoglobin 8.8 g/dl (12.0-16.0); Imm Gran Abs Auto 0.01 X10*3/uL (0.00-0.03); Imm Gran Pct Auto 0.4 % (0.0-0.4); Lymphocytes Absolute Auto 0.4 X10*3/uL (1.2-4.9); Mean Corpuscular HGB Conc 32.5 g/dl (31.0-35.0); Mean Corpuscular Hemoglobin 30.6 pg (27.0-33.0); Mean Corpuscular Volume 94.1 fL (80.0-98.0); Mean Platelet Volume 11.9 fL (9.4-12.3); Monocytes Absolute Auto 0.3 X10*3/uL (0.1-1.2); Monocytes Percent Auto 10.3 % (2-11); Neutrophils Absolute Auto 1.9 x10*3/uL (2.0-8.3); Neutrophils Percent Auto 70.2 % (45-73); Platelet Count 112 X10*3/uL (160-400); Red Blood Count 2.88 X10*6/uL (4.20-5.50); Red Cell Distribution Width 16.5 % (11.0-16.0); White Blood Count 2.7 X10*3/uL (4.8-10.8)
[2023-06-17 06:13] LABS: Alanine Aminotransferase 13 U/L (0-31); Albumin Level 3.1 g/dL (3.5-5.0); Alkaline Phosphatase 109 U/L (39-117); Anion Gap 15 (12-20); Aspartate Amino Transferase 16 U/L (5-31); Bilirubin Total 0.7 mg/dL (0.0-1.0); Blood Urea Nitrogen 90 mg/dL (9-16); Calcium 8.9 mg/dL (8.4-10.2); Carbon Dioxide 14 mmol/L (22-29); Chloride 108 mmol/L (96-108); Creatinine Clr Calc Pharmacy 11.5; Estimated Glomerular Filt Rate 6; Glucose Random 149 mg/dL (60-115); Potassium 5.8 mmol/L (3.3-5.1); Sodium 131 mmol/L (135-145); Total Protein 7.1 g/dL (6.5-8.0)
[2023-06-17 06:32] LABS: C Reactive Protein 0.21 mg/dL (< or = 0.50)
[2023-06-17 07:03] LABS: Glucose, Whole Blood 120 mg/dL (60-115)
[2023-06-17] MEDS: 0.9 % Sodium Chloride Flush 3 ML SYRINGE IVFLUSH ×3 (08:16→19:54)
[2023-06-17] MEDS: Doxycycline Hyclate 100 MG in 0.9 % Sodium Chloride 250 ML 166.67 MG IV ×2 (08:16→18:00)
--- NOTE | 2023-06-17 09:10 | MHC.CM.PN ---
Patient lives in an apartment with her Sister/[employer]/Josy and she uses a w/c to assist with mobility. IMM to be addressed with Josy; Patient is Legally Blind. Patient's Sister is her [employer] (48 hours/week); Patient has home O2 and receives her HD @ [facility]. Home/resume said services is the goal and CM has initiated and will follow for dc planning. PCP is Dr. Abdon Beard and Brother/Michael is the HCP.
[2023-06-17] MEDS: Isosorbide Mononitrate 30 MG TAB.ER.24H PO (09:58)
[2023-06-17] MEDS: NIFEdipine ER 90 MG TAB.ER.24 PO (09:58)
--- NOTE | 2023-06-17 10:08 | PHA.MEDREC ---
Pharmacy Consult ? Medication Reconciliation Pharmacy has completed the medication reconciliation. Spoke to patient to confirm meds. Per patient, they are not taking any vitamins, not taking lidocaine patches, sevelamer, omeprazole, or calcitriol. Patient also stated that they are currently taking Keppra 1000 mg daily.
--- NOTE | 2023-06-17 10:26 | PM.EVENT ---
Event Note Date of Service: 06/17/23 Event Note: seen and evaluated this morning reporting mild nausea K elevated 5.8 reporting pain in LLE with open wound continue IV Abx Nephrology planning dialysis tomorrow morning Time Spent With Patient Time: Total time managing care of this patient today ____ minutes.
[2023-06-17 10:53] LABS: Glucose, Whole Blood 131 mg/dL (60-115)
[2023-06-17] MEDS: levETIRAcetam 250 MG TABLET 750 MG PO (11:32)
[2023-06-17] MEDS: HYDROmorphone HCl 0.5 MG/0.5 ML SYRINGE IVPUSH ×3 (11:33→19:46)
[2023-06-17] MEDS: ondansetron HCL 4 MG/2 ML VIAL IVPUSH ×2 (11:36→19:47)
[2023-06-17] MEDS: Sodium Zirconium Cyclosilicate 10 GM POWD.PACK PO ×2 (14:11→19:48)
[2023-06-17 17:00] LABS: Glucose, Whole Blood 114 mg/dL (60-115)
--- NOTE | 2023-06-17 20:49 | P.CONNP_ITS ---
History of Present Illness Reason for Consult Consult date: 06/17/23 Chief Complaint Chief complaint: Hyperkalemia [facility] Past Medical History Medical History Hypertension End-stage renal disease (ESRD) Foot ulcer CKD (chronic kidney disease) Hypertension Anemia Diabetic foot Vomiting Renal failure Hypertension Hyperkalemia Metabolic acidosis HFrEF (heart failure with reduced ejection fraction) ESRD on dialysis Migraine Diabetic foot ulcer associated with type 2 diabetes mellitus Chronic pain Gastroparesis Non-compliance with renal dialysis Hypertensive emergency Diabetes ESRD needing dialysis Cardiomyopathy delivery delivered Anemia in chronic kidney disease (CKD) CKD (chronic kidney disease) Headache, migraine Abnormal finding on echocardiogram Elevated troponin Chest pain Acute worsening of stage 3 chronic kidney disease Generalized edema Sepsis Cellulitis Pleural effusion CHF (congestive heart failure) (~06/07/22) Tachycardia Atypical chest pain Bone infection PAD (peripheral artery disease) Severe anemia Cellulitis and abscess of foot DM foot ulcer Osteomyelitis test positive test positive Asthma Depression with anxiety Diabetic retinopathy Type 2 diabetes mellitus with hyperglycemia, with long-term current use of insulin Blind right eye Diabetes Back pain Family History Family History Mother Coronary artery disease Myocardial infarction Stroke Diabetes mellitus Father Myocardial infarction Surgical History Surgical History 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 Social History Social History Household Members: Family Household Members Other:: sister Housing: House Do you presently have visiting nurse or other home services: No Unable to assess alcohol history related to: Unknown Alcohol intake: never 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 Patient Tobacco Use Status: Never used Tobacco e-Cigarette/Vaping Use: Never Used Second Hand Smoke Exposure: No Use of substances other than those prescribed or required for medical reasons: No Currently Displaying Signs/Symptoms of Drug Intoxication Withdrawal: No Have you been hit, kicked, punched, or otherwise hurt by someone within the past year? If so, by whom?: No Do you feel safe in your current relationship?: Yes Is there a partner from a previous relationship who is making you feel unsafe now?: No Are you made to feel afraid or neglected: No Advance Directives: Yes Advance Directives on File: Yes Advance Directives Date on File: 03/08/20 Do you have thoughts of harming others: None Do you have a plan to hurt others: No Plan Recently lost weight without trying: No Nutrition Risks: No Nutritional Risk Patient : No : No Poor oral hygiene: No service: No Current occupational status: unemployed and disabled Gender identity: Female Meds Allergies Allergy/AdvReac Type Severity Reaction Status Date / Time morphine [MORPHINE] Allergy Intermediate Itching Verified 06/16/23 14:12 azithromycin [From Zithromax] Allergy Hives Verified 06/16/23 14:12 gabapentin Allergy Facial Verified 06/16/23 14:12 Swelling tramadol Allergy Facial Verified 06/16/23 14:12 Swelling vancomycin Allergy Anaphylaxis Verified 06/16/23 14:12 Active Medications: Current Medications Acetaminophen (Acetaminophen 325 Mg Tablet) 975 mg PO Q6H PRN PRN Reason: Pain, Moderate(Pain Scale 4-6) Carvedilol (Carvedilol 12.5 Mg Tablet) 12.5 mg PO BID [facility]; Protocol Last Admin: 06/17/23 03:53 Dose: 12.5 mg Docusate Sodium (Docusate Sodium 100 Mg Capsule) 100 mg PO DAILY PRN PRN Reason: constipation Glucose (Glucose Gel 15 Gm Gel..Gram.) 15 gm PO Q15M PRN; Protocol PRN Reason: per Hypoglycemia Standing Ord. Hydralazine HCl (Hydralazine Hcl 50 Mg Tablet) 50 mg PO TID [facility]; Protocol Last Admin: 06/17/23 14:11 Dose: 50 mg Hydromorphone HCl (Hydromorphone Hcl 0.5 Mg/0.5 Ml Syringe) 0.5 mg IVPUSH Q4H PRN; Protocol PRN Reason: Pain, Severe (Pain Scale 7-10) Last Admin: 06/17/23 19:46 Dose: 0.5 mg Dextrose (D10) 250 mls @ 750 mls/hr IV Q15M PRN PRN Reason: per Hypoglycemia Standing Ord. Last Infusion: 06/17/23 01:07 Dose: Infused Dextrose (D10) 250 mls @ 750 mls/hr IV Q15M PRN; Protocol PRN Reason: per Hypoglycemia Standing Ord. Doxycycline Hyclate 100 mg/ (Sodium Chloride) 250 mls @ 166.67 mls/hr IV Q12H [facility] Last Infusion: 06/17/23 19:34 Dose: Infused Insulin Human Lispro (Insulin Lispro 100 Unit/Ml 3 Ml Vial) 0 unit SUBCUT QIDACHS [facility]; Protocol Last Admin: 06/17/23 16:57 Dose: Not Given Isosorbide Mononitrate (Isosorbide Mononitrate 30 Mg Tab.Er.24h) 30 mg PO DAILY [facility]; Protocol Last Admin: 06/17/23 09:58 Dose: 30 mg Levetiracetam (Levetiracetam 1,000 Mg Tablet) 1,000 mg PO DAILY [facility] Losartan Potassium (Losartan Potassium 50 Mg Tablet) 50 mg PO DAILY [facility]; Protocol Nifedipine (Nifedipine Er 90 Mg Tab.Er.24) 90 mg PO DAILY [facility]; Protocol Last Admin: 06/17/23 09:58 Dose: 90 mg Ondansetron HCl (Ondansetron Hcl 4 Mg/2 Ml Vial) 4 mg IVPUSH Q6H PRN PRN Reason: Nausea and Vomiting Last Admin: 06/17/23 19:47 Dose: 4 mg Oxycodone HCl (Oxycodone Hcl Immed Release 5 Mg Tablet) 5 mg PO TID PRN PRN Reason: Pain, Moderate(Pain Scale 4-6) Sodium Chloride (0.9 % Sodium Chloride Flush 3 Ml Syringe) 3 ml IVFLUSH QSHIFT [facility] Last Admin: 06/17/23 19:54 Dose: 3 ml Sodium Zirconium Cyclosilicate (Sodium Zirconium Cyclosilicate 10 Gm Powd.Pack) 10 gm PO TID [facility] Stop: 06/19/23 09:01 Last Admin: 06/17/23 19:48 Dose: 10 gm Torsemide (Torsemide 20 Mg Tablet) 40 mg PO BID [facility]; Protocol Vitamin D (Cholecalciferol (Vitamin D3) 25 Mcg Tablet) 50 mcg PO DAILY [facility] Last Admin: 06/17/23 09:58 Dose: Not Given Home Medications ?Medication ?Instructions ?Recorded ?Confirmed ?Last Taken ?Type carvedilol 12.5 mg tablet 12.5 mg PO BID 06/05/23 06/17/23 06/16/23 History docusate sodium 100 mg capsule 100 mg PO DAILY PRN constipation 06/05/23 06/17/23 Unknown History hydralazine 100 mg tablet 50 mg PO TID 06/05/23 06/17/23 06/16/23 History isosorbide mononitrate 30 mg 30 mg PO DAILY 06/05/23 06/17/23 06/16/23 History tablet,extended release 24 hr losartan 50 mg tablet 50 mg PO DAILY 06/05/23 06/17/23 06/16/23 History torsemide 20 mg tablet 40 mg PO BID 06/05/23 06/17/23 06/16/23 History levetiracetam 1,000 mg tablet 1,000 mg PO DAILY 06/17/23 06/17/23 06/16/23 History oxycodone 5 mg tablet 5 mg PO TID PRN Pain 06/17/23 06/17/23 Unknown History Physical Exam Vital Signs: Last Vital Signs Temp 96.8 F 06/17/23 15:50 Pulse 69 06/17/23 15:50 Resp 16 06/17/23 15:50 BP 115/58 L 06/17/23 15:50 Pulse Ox 94 06/17/23 15:50 O2 Del Method Room Air 06/17/23 15:50 BMI result Body Mass Index 33.9 Results Lab Results 06/17/23 05:30 06/17/23 05:30 Lab results: Chemistry 06/16/23 06/17/23 06/17/23 15:26 01:07 05:30 Sodium 132 L 132 L 131 L Potassium 6.1 H* 5.6 H 5.8 H Carbon Dioxide 16 L 13 L 14 L BUN 82 H 88 H 90 H Creatinine 7.19 H* 7.57 H* 7.46 H* Calcium 8.5 D 8.9 8.9 Hematology 06/16/23 06/17/23 15:26 05:30 WBC 3.4 L 2.7 L Hgb 8.8 L 8.8 L Plt Count 117 L 112 L Assessment and Plan (1) End-stage renal disease (ESRD): Status: Acute Plan Pt is ESRD on HD TTS, I am not certain when her last HD was, [place] [facility] was even refusing dialysis there. Labs notable for K of 6.1 intially, received treatment for hyperK. Last K 5.8. VS noted, all stable. Pt will be for HD tomorrow morning early. Continue Lokelma 10g q8h for now. Dose meds per HD Total time managing care of this patient today: 0 minutes. Procedures Date of Service Date of Service: 06/17/23
[2023-06-17 21:38] LABS: Glucose, Whole Blood 136 mg/dL (60-115)
[2023-06-17] MEDS: Torsemide 20 MG TABLET 40 MG PO (21:57)
[2023-06-18] VITALS (11 sets, daily range): BP systolic 83–163; BP diastolic 53–87; PULSE 53–76; RESP 11–20; TEMP 36.1–37; O2SAT 92–98
[2023-06-18] MEDS: HYDROmorphone HCl 0.5 MG/0.5 ML SYRINGE IVPUSH ×5 (00:44→20:58)
[2023-06-18] MEDS: Acetaminophen 1,000 MG/100 ML PIGGYBACK 400 MG IV (04:34)
[2023-06-18 05:23] LABS: Glucose, Whole Blood 135 mg/dL (60-115)
[2023-06-18] MEDS: 0.9 % Sodium Chloride 500 ML IV ×2 (05:39→06:14)
[2023-06-18] MEDS: Doxycycline Hyclate 100 MG in 0.9 % Sodium Chloride 250 ML 166.67 MG IV ×2 (05:58→16:44)
[2023-06-18] MEDS: Midodrine HCl 10 MG TABLET PO (06:02)
--- NOTE | 2023-06-18 06:28 | PM.EVENT ---
Event Note Date of Service: 06/18/23 Event Note: Rapid response was activated. Patient became unresponsive. SBP dropped to the low 80s. Patient was responsive to painful stimuli only. A total of 1 L of normal saline was given. All hypertensive medications, diuretics and opiate on hold. One dose of midodrine 10 mg PO given. Patient is subsequently became alert. Persistently saying sometimes going to happen . BP at 6:24 am is 92/54. Will recheck BP in one hour. Time Spent With Patient Time: Total time managing care of this patient today ____ minutes.
[2023-06-18 07:42] LABS: Glucose, Whole Blood 158 mg/dL (60-115)
[2023-06-18] MEDS: 0.9 % Sodium Chloride Flush 3 ML SYRINGE IVFLUSH ×3 (07:58→21:01)
--- NOTE | 2023-06-18 09:06 | HO.WOUND ---
Wound Consult: Initial 32yr old female admitted [place] [facility] [place]23 - See progress notes and H&P for detailed history. Wound consult placed for Chronic Left and Right Plantar Wound - present on admission. Recent frequent admissions to [facility] [place] - see chart for details. 06/04/23 last admission Left Plantar Foot Etiology: Chronic - Diabetic Foot wound Wound Bed: dry marbled wound bed with adherent yellow green slough red tissue noted Drainage / Odor: no odor noted - no drainage noted - Alginate stuck to wound bed Edges: ? callused Pao wound: Calloused and undermining noted No Induration, No Fluctuance, No Erythema, No Warmth Pain: Denies reports neuropathy Goals of Treatment: Durafiber to allow for autolytic debridement last admission 06/04/23 Right Foot todays admission Right Foot Etiology: Diabetic Foot wound Wound Bed: pink moist - tissue after cleansing Drainage / Odor: mild malodor noted - dried drainage noted on dressing adherent to wound bed Edges: ? callused and macerated Pao wound: Callused and undermining noted - No Induration, No Fluctuance, No Erythema, No Warmth Pain: Denies reports neuropathy Goals of Treatment: ? Durafiber AG packing Recommend follow up out patient Wound Clinic at [address] [place] [address] and to call for an appointment at time of discharge. [phone].? Recommendations: 1. Turn and Reposition every 2 hours and as needed for patient comfort. 2. Off Load all bony prominences with use of pillows and heel boots as needed. 3. Provide adequate and supplemental nutrition. 4. Maintain blood glucose levels per Providers orders. 5. Right and Left Foot - Cleanse and irrigate with NS, Pat dry. Apply cut to size Durafiber AG to wound bed , cover with dry gauze, ABD pad and gauze wrap. Change every other day. Off Load Pressure. Recommend follow up out patient Wound Clinic at [address] [place] [address] and to call for an appointment at time of discharge. [phone].?
[2023-06-18 11:16] LABS: Glucose, Whole Blood 165 mg/dL (60-115)
--- NOTE | 2023-06-18 13:40 | P.CNPS_ITS ---
History of Present Illness Date of Service: 06/18/2023 <Clarita Maldonado NP - Last Filed: 06/18/23 13:59> Chief Complaint: Hyperkalemia <Clarita Maldonado NP - Last Filed: 06/18/23 13:59> Reason for Consult: suspecting depression, untreated. Multiple admissions. <Clarita Maldonado NP - Last Filed: 06/18/23 13:59> Requesting physician: Cheyenne Sears <Clarita Maldonado NP - Last Filed: 06/18/23 13:59> Discussed with referring provider: Yes <Clarita Maldonado NP - Last Filed: 06/18/23 13:59> Sources of Information: patient interviewed and chart reviewed <Clarita Maldonado NP - Last Filed: 06/18/23 13:59> HPI Narrative: Patient is a 32 years old woman who has history of end-stage renal disease on hemodialysis (TTS), hypertension, gastroparesis, asthma, blindness, seizure disorder, severe interstitial fibrosis, HFrEG (40-50%), chronic diabetic foot ulcers and type 2 diabetes mellitus was brought to the emergency department by EMS complaining of body aches. Psychiatric consult placed for: suspecting depression, untreated. Multiple admissions. During psychiatric assessment, pt presents calm and cooperative, guard, alert and oriented. Pt reports feeling okay today; pt stated, sometimes I feel sad about everything. I get anxious too . Pt would not elaborate on what is making her sad and anxious . Pt reports difficulty sleeping four nights out of the week. She denies any current outpatient psychiatric providers or taking psychiatric medications. Pt stated, I was admitted psychiatrically once in my 20's because I was feeling suicidal but I never did anything ; poor historian. Pt reported hx of seeing a therapist when I was [age] but I don't remember for what . Pt denies SI/HI/VH/AH. Pt expressed interest in starting on an antidepressant and referrals to outpatient providers. Discussed risks/benefits of Mirtazepine;pt agreed to trial. <Clarita Maldonado NP - Last Filed: 06/18/23 13:59> Past Psychiatric History: hx of one inpatient psychiatric hospitalization at [facility]. hx of seeing an outpatient psychiatrist and therapist when she was 11 y/o; does not recall medication hx. <Clarita Maldonado NP - Last Filed: 06/18/23 13:59> Medical Evaluation Reviewed: Yes <Clarita Maldonado NP - Last Filed: 06/18/23 13:59> [facility]LY [facility] Medical History: Medical History Hypertension End-stage renal disease (ESRD) Foot ulcer CKD (chronic kidney disease) Hypertension Anemia Diabetic foot Vomiting Renal failure Hypertension Hyperkalemia Metabolic acidosis HFrEF (heart failure with reduced ejection fraction) ESRD on dialysis Migraine Diabetic foot ulcer associated with type 2 diabetes mellitus Chronic pain Gastroparesis Non-compliance with renal dialysis Hypertensive emergency Diabetes ESRD needing dialysis Cardiomyopathy delivery delivered Anemia in chronic kidney disease (CKD) CKD (chronic kidney disease) Headache, migraine Abnormal finding on echocardiogram Elevated troponin Chest pain Acute worsening of stage 3 chronic kidney disease Generalized edema Sepsis Cellulitis Pleural effusion CHF (congestive heart failure) (~06/07/22) Tachycardia Atypical chest pain Bone infection PAD (peripheral artery disease) Severe anemia Cellulitis and abscess of foot DM foot ulcer Osteomyelitis test positive test positive Asthma Depression with anxiety Diabetic retinopathy Type 2 diabetes mellitus with hyperglycemia, with long-term current use of insulin Blind right eye Diabetes Back pain <Clarita Maldonado NP - Last Filed: 06/18/23 13:59> Surgical History: Surgical History 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 <Clarita Maldonado NP - Last Filed: 06/18/23 13:59> Family History: unknown <Clarita Maldonado NP - Last Filed: 06/18/23 13:59> Social History: Lives with her sister, single, 2 children(13 and 11 y/o; live with their father in [place]), disability <Clarita Maldonado NP - Last Filed: 06/18/23 13:59> Substance History: denies <Clarita Maldonado NP - Last Filed: 06/18/23 13:59> Trauma History: yes <Clarita Maldonado NP - Last Filed: 06/18/23 13:59> Diagnostics Vital Signs (24Hr): Vital Signs - 24 hr 06/17/23 15:50 06/17/23 21:39 06/17/23 21:56 Temperature 96.8 F 97.6 F Pulse Rate 69 65 Respiratory Rate 16 20 Blood Pressure 115/58 L 105/41 L 105/41 L Pulse Oximetry 94 98 Oxygen Delivery Method Room Air Room Air Oxygen Flow Rate 06/17/23 21:57 06/17/23 21:57 06/18/23 00:00 Temperature 96.9 F Pulse Rate 65 62 Respiratory Rate 20 Blood Pressure 105/41 L 105/41 L 95/54 L Pulse Oximetry 98 Oxygen Delivery Method Room Air Oxygen Flow Rate 06/18/23 01:55 06/18/23 03:14 06/18/23 05:10 Temperature 96.9 F Pulse Rate 56 54 Respiratory Rate 20 11 L Blood Pressure 90/66 83/53 L Pulse Oximetry 93 96 Oxygen Delivery Method Room Air Nasal Cannula Oxygen Flow Rate 3 06/18/23 06:24 06/18/23 07:42 06/18/23 07:55 Temperature 97.7 F Pulse Rate 53 53 Respiratory Rate 19 Blood Pressure 92/54 L 110/53 L 110/53 L Pulse Oximetry Oxygen Delivery Method Room Air Oxygen Flow Rate 06/18/23 11:33 Temperature 97.4 F Pulse Rate 64 Respiratory Rate 19 Blood Pressure 114/64 Pulse Oximetry 92 Oxygen Delivery Method Nasal Cannula Oxygen Flow Rate 1 BMI result Body Mass Index 33.9 <Clarita Maldonado NP - Last Filed: 06/18/23 13:59> Labs Results: 06/17/23 05:30 06/17/23 05:30 <Clarita Maldonado NP - Last Filed: 06/18/23 13:59> Labs: Laboratory Results - last 48 hr 06/16/23 06/16/23 06/16/23 15:25 15:26 22:16 WBC 3.4 L RBC 2.86 L Hgb 8.8 L Hct 27.1 L MCV 94.8 MCH 30.8 MCHC 32.5 RDW 16.7 H Plt Count 117 L MPV 11.8 Immature Gran % (Auto) 0.0 Neut % (Auto) 67.7 Lymph % (Auto) 13.2 L [place] % (Auto) 12.6 H Eos % (Auto) 5.9 H Baso % (Auto) 0.6 Lymph # (Auto) 0.5 L [place] # (Auto) 0.4 Eos # (Auto) 0.2 Baso # (Auto) 0.0 Abs Immat Gran (auto) 0.00 Absolute Neuts (auto) 2.3 Absolute Nucleated RBC 0.000 Nucleated RBC % (auto) 0.0 Sodium 132 L Potassium 6.1 H* Chloride 108 Carbon Dioxide 16 L Anion Gap 14 BUN 82 H Creatinine 7.19 H* Estim Creat Clear Calc 11.9 Estimated GFR 7 POC Glucose Random Glucose 113 Lactic Acid 0.6 Calcium 8.5 D Magnesium 3.1 H Total Bilirubin 0.7 AST 19 ALT 14 Alkaline Phosphatase 124 H Troponin I High Sens 20.4 H D 21.2 H C-Reactive Protein B-Natriuretic Peptide 2928 H Total Protein 7.6 Albumin 3.3 L Influenza Type A (PCR) NEGATIVE Influenza Type B (PCR) NEGATIVE RSV RNA Qual (PCR) NEGATIVE SARS-CoV-2 RNA (RT-PCR) NEGATIVE 06/16/23 06/17/23 06/17/23 22:43 00:12 00:24 WBC RBC Hgb Hct MCV MCH MCHC RDW Plt Count MPV Immature Gran % (Auto) Neut % (Auto) Lymph % (Auto) [place] % (Auto) Eos % (Auto) Baso % (Auto) Lymph # (Auto) [place] # (Auto) Eos # (Auto) Baso # (Auto) Abs Immat Gran (auto) Absolute Neuts (auto) Absolute Nucleated RBC Nucleated RBC % (auto) Sodium Potassium Chloride Carbon Dioxide Anion Gap BUN Creatinine Estim Creat Clear Calc Estimated GFR POC Glucose 91 29 L* 64 Random Glucose Lactic Acid Calcium Magnesium Total Bilirubin AST ALT Alkaline Phosphatase Troponin I High Sens C-Reactive Protein B-Natriuretic Peptide Total Protein Albumin Influenza Type A (PCR) Influenza Type B (PCR) RSV RNA Qual (PCR) SARS-CoV-2 RNA (RT-PCR) 06/17/23 06/17/23 06/17/23 00:45 00:58 01:07 WBC RBC Hgb Hct MCV MCH MCHC RDW Plt Count MPV Immature Gran % (Auto) Neut % (Auto) Lymph % (Auto) [place] % (Auto) Eos % (Auto) Baso % (Auto) Lymph # (Auto) [place] # (Auto) Eos # (Auto) Baso # (Auto) Abs Immat Gran (auto) Absolute Neuts (auto) Absolute Nucleated RBC Nucleated RBC % (auto) Sodium 132 L Potassium 5.6 H Chloride 109 H Carbon Dioxide 13 L Anion Gap 16 BUN 88 H Creatinine 7.57 H* Estim Creat Clear Calc 11.3 Estimated GFR 6 POC Glucose 56 L* 129 H Random Glucose 93 Lactic Acid Calcium 8.9 Magnesium Total Bilirubin AST ALT Alkaline Phosphatase Troponin I High Sens C-Reactive Protein 0.21 B-Natriuretic Peptide Total Protein Albumin Influenza Type A (PCR) Influenza Type B (PCR) RSV RNA Qual (PCR) SARS-CoV-2 RNA (RT-PCR) 06/17/23 06/17/23 06/17/23 01:16 01:28 01:43 WBC RBC Hgb Hct MCV MCH MCHC RDW Plt Count MPV Immature Gran % (Auto) Neut % (Auto) Lymph % (Auto) [place] % (Auto) Eos % (Auto) Baso % (Auto) Lymph # (Auto) [place] # (Auto) Eos # (Auto) Baso # (Auto) Abs Immat Gran (auto) Absolute Neuts (auto) Absolute Nucleated RBC Nucleated RBC % (auto) Sodium Potassium Chloride Carbon Dioxide Anion Gap BUN Creatinine Estim Creat Clear Calc Estimated GFR POC Glucose 87 109 190 H Random Glucose Lactic Acid Calcium Magnesium Total Bilirubin AST ALT Alkaline Phosphatase Troponin I High Sens C-Reactive Protein B-Natriuretic Peptide Total Protein Albumin Influenza Type A (PCR) Influenza Type B (PCR) RSV RNA Qual (PCR) SARS-CoV-2 RNA (RT-PCR) 06/17/23 06/17/23 06/17/23 01:58 02:31 02:59 WBC RBC Hgb Hct MCV MCH MCHC RDW Plt Count MPV Immature Gran % (Auto) Neut % (Auto) Lymph % (Auto) [place] % (Auto) Eos % (Auto) Baso % (Auto) Lymph # (Auto) [place] # (Auto) Eos # (Auto) Baso # (Auto) Abs Immat Gran (auto) Absolute Neuts (auto) Absolute Nucleated RBC Nucleated RBC % (auto) Sodium Potassium Chloride Carbon Dioxide Anion Gap BUN Creatinine Estim Creat Clear Calc Estimated GFR POC Glucose 178 H 160 H 152 H Random Glucose Lactic Acid Calcium Magnesium Total Bilirubin AST ALT Alkaline Phosphatase Troponin I High Sens C-Reactive Protein B-Natriuretic Peptide Total Protein Albumin Influenza Type A (PCR) Influenza Type B (PCR) RSV RNA Qual (PCR) SARS-CoV-2 RNA (RT-PCR) 06/17/23 06/17/23 06/17/23 04:14 05:30 06:59 WBC 2.7 L RBC 2.88 L Hgb 8.8 L Hct 27.1 L MCV 94.1 MCH 30.6 MCHC 32.5 RDW 16.5 H Plt Count 112 L MPV 11.9 Immature Gran % (Auto) 0.4 Neut % (Auto) 70.2 Lymph % (Auto) 14.0 L [place] % (Auto) 10.3 Eos % (Auto) 4.4 H Baso % (Auto) 0.7 Lymph # (Auto) 0.4 L [place] # (Auto) 0.3 Eos # (Auto) 0.1 Baso # (Auto) 0.0 Abs Immat Gran (auto) 0.01 Absolute Neuts (auto) 1.9 L Absolute Nucleated RBC 0.000 Nucleated RBC % (auto) 0.0 Sodium 131 L Potassium 5.8 H Chloride 108 Carbon Dioxide 14 L Anion Gap 15 BUN 90 H Creatinine 7.46 H* Estim Creat Clear Calc 11.5 Estimated GFR 6 POC Glucose 148 H 120 H Random Glucose 149 H Lactic Acid Calcium 8.9 Magnesium Total Bilirubin 0.7 AST 16 ALT 13 Alkaline Phosphatase 109 Troponin I High Sens C-Reactive Protein B-Natriuretic Peptide Total Protein 7.1 Albumin 3.1 L Influenza Type A (PCR) Influenza Type B (PCR) RSV RNA Qual (PCR) SARS-CoV-2 RNA (RT-PCR) 06/17/23 06/17/23 06/17/23 10:49 16:56 21:34 WBC RBC Hgb Hct MCV MCH MCHC RDW Plt Count MPV Immature Gran % (Auto) Neut % (Auto) Lymph % (Auto) [place] % (Auto) Eos % (Auto) Baso % (Auto) Lymph # (Auto) [place] # (Auto) Eos # (Auto) Baso # (Auto) Abs Immat Gran (auto) Absolute Neuts (auto) Absolute Nucleated RBC Nucleated RBC % (auto) Sodium Potassium Chloride Carbon Dioxide Anion Gap BUN Creatinine Estim Creat Clear Calc Estimated GFR POC Glucose 131 H 114 136 H Random Glucose Lactic Acid Calcium Magnesium Total Bilirubin AST ALT Alkaline Phosphatase Troponin I High Sens C-Reactive Protein B-Natriuretic Peptide Total Protein Albumin Influenza Type A (PCR) Influenza Type B (PCR) RSV RNA Qual (PCR) SARS-CoV-2 RNA (RT-PCR) 06/18/23 06/18/23 06/18/23 05:07 07:22 10:58 WBC RBC Hgb Hct MCV MCH MCHC RDW Plt Count MPV Immature Gran % (Auto) Neut % (Auto) Lymph % (Auto) [place] % (Auto) Eos % (Auto) Baso % (Auto) Lymph # (Auto) [place] # (Auto) Eos # (Auto) Baso # (Auto) Abs Immat Gran (auto) Absolute Neuts (auto) Absolute Nucleated RBC Nucleated RBC % (auto) Sodium Potassium Chloride Carbon Dioxide Anion Gap BUN Creatinine Estim Creat Clear Calc Estimated GFR POC Glucose 135 H 158 H 165 H Random Glucose Lactic Acid Calcium Magnesium Total Bilirubin AST ALT Alkaline Phosphatase Troponin I High Sens C-Reactive Protein B-Natriuretic Peptide Total Protein Albumin Influenza Type A (PCR) Influenza Type B (PCR) RSV RNA Qual (PCR) SARS-CoV-2 RNA (RT-PCR) <Clarita Maldonado NP - Last Filed: 06/18/23 13:59> Imaging Radiology Impressions: ITS Impressions Foot X-Ray 06/16/23 18:26 Impression: Extensive chronic appearing and postoperative changes. I do not appreciate any acute superimposed fracture or dislocation. I do not appreciate any acute bony destructive lesions in this setting. If there is persistent clinical concern, MRI would be more sensitive. Foot X-Ray 06/16/23 18:26 Impression: Extensive chronic appearing and postoperative changes. I do not appreciate any acute superimposed fracture or dislocation. I do not appreciate any acute bony destructive lesions in this setting. If there is persistent clinical concern, MRI would be more sensitive. <Clarita Maldonado NP - Last Filed: 06/18/23 13:59> Mental Status Exam Mental Status Exam Narrative: Pt is alert and oriented; behavior is cooperative and calm; dressed in hospital attire; mood is described as okay ; Speech is normal rate, volume and prosody and not pressured; thought process is organized; Thought content is on tx; otherwise pertinent to relevant topics and without any delusional content, paranoid ideations or grandiosity; denies SI/HI/VH/AH. <Clarita Maldonado NP - Last Filed: 06/18/23 13:59> Medications Medications Current Medications Acetaminophen (Acetaminophen 325 Mg Tablet) 975 mg PO Q6H PRN PRN Reason: Pain, Moderate(Pain Scale 4-6) Carvedilol (Carvedilol 12.5 Mg Tablet) 12.5 mg PO BID [facility]; Protocol Last Admin: 06/18/23 07:55 Dose: Not Given Docusate Sodium (Docusate Sodium 100 Mg Capsule) 100 mg PO DAILY PRN PRN Reason: constipation Glucose (Glucose Gel 15 Gm Gel..Gram.) 15 gm PO Q15M PRN; Protocol PRN Reason: per Hypoglycemia Standing Ord. Hydralazine HCl (Hydralazine Hcl 50 Mg Tablet) 50 mg PO TID [facility]; Protocol Last Admin: 06/17/23 21:56 Dose: 50 mg Hydromorphone HCl (Hydromorphone Hcl 0.5 Mg/0.5 Ml Syringe) 0.5 mg IVPUSH Q4H PRN; Protocol PRN Reason: Pain, Severe (Pain Scale 7-10) Last Admin: 06/18/23 11:54 Dose: 0.5 mg Dextrose (D10) 250 mls @ 750 mls/hr IV Q15M PRN PRN Reason: per Hypoglycemia Standing Ord. Last Infusion: 06/17/23 01:07 Dose: Infused Dextrose (D10) 250 mls @ 750 mls/hr IV Q15M PRN; Protocol PRN Reason: per Hypoglycemia Standing Ord. Doxycycline Hyclate 100 mg/ (Sodium Chloride) 250 mls @ 166.67 mls/hr IV Q12H [facility] Last Infusion: 06/18/23 07:58 Dose: Infused Insulin Human Lispro (Insulin Lispro 100 Unit/Ml 3 Ml Vial) 0 unit SUBCUT QIDACHS [facility]; Protocol Last Admin: 06/18/23 11:28 Dose: Not Given Isosorbide Mononitrate (Isosorbide Mononitrate 30 Mg Tab.Er.24h) 30 mg PO DAILY [facility]; Protocol Last Admin: 06/17/23 09:58 Dose: 30 mg Levetiracetam (Levetiracetam 1,000 Mg Tablet) 1,000 mg PO DAILY [facility] Last Admin: 06/18/23 11:28 Dose: Not Given Nifedipine (Nifedipine Er 90 Mg Tab.Er.24) 90 mg PO DAILY [facility]; Protocol Last Admin: 06/17/23 09:58 Dose: 90 mg Ondansetron HCl (Ondansetron Hcl 4 Mg/2 Ml Vial) 4 mg IVPUSH Q6H PRN PRN Reason: Nausea and Vomiting Last Admin: 06/17/23 19:47 Dose: 4 mg Oxycodone HCl (Oxycodone Hcl Immed Release 5 Mg Tablet) 5 mg PO TID PRN PRN Reason: Pain, Moderate(Pain Scale 4-6) Sodium Chloride (0.9 % Sodium Chloride Flush 3 Ml Syringe) 3 ml IVFLUSH QSHIFT [facility] Last Admin: 06/18/23 07:58 Dose: 3 ml Torsemide (Torsemide 20 Mg Tablet) 40 mg PO BID [facility]; Protocol Last Admin: 06/17/23 21:57 Dose: 40 mg Vitamin D (Cholecalciferol (Vitamin D3) 25 Mcg Tablet) 50 mcg PO DAILY [facility] Last Admin: 06/18/23 08:31 Dose: Not Given <Clarita Maldonado NP - Last Filed: 06/18/23 13:59> Allergies Allergies Allergy/AdvReac Type Severity Reaction Status Date / Time morphine [MORPHINE] Allergy Intermediate Itching Verified 06/16/23 14:12 azithromycin [From Zithromax] Allergy Hives Verified 06/16/23 14:12 gabapentin Allergy Facial Verified 06/16/23 14:12 Swelling tramadol Allergy Facial Verified 06/16/23 14:12 Swelling vancomycin Allergy Anaphylaxis Verified 06/16/23 14:12 <Clarita Maldonado NP - Last Filed: 06/18/23 13:59> Assessment & Plan Assessment & Plan (1) MDD (major depressive disorder), recurrent episode: Status: Acute <Clarita Maldonado NP - Last Filed: 06/18/23 13:59> Code(s): F33.9 - Major depressive disorder, recurrent, unspecified <Clarita Maldonado NP - Last Filed: 06/18/23 13:59> Assessment and Plan: Psychiatric consult placed for: suspecting depression, untreated. Multiple admissions. During psychiatric assessment, pt presents calm and cooperative, guard, alert and oriented. Pt reports feeling okay today; pt stated, sometimes I feel sad about everything. I get anxious too . Pt would not elaborate on what is making her sad and anxious . Pt reports difficulty sleeping four nights out of the week. She denies any current outpatient psychiatric providers or taking psychiatric medications. Pt stated, I was admitted psychiatrically once in my 20's because I was feeling suicidal but I never did anything ; poor historian. Pt reported hx of seeing a therapist when I was [age] but I don't remember for what . Pt denies SI/HI/VH/AH. Pt expressed interest in starting on an antidepressant and referrals to outpatient providers. Discussed risks/benefits of Mirtazepine;pt agreed to trial. Recommendation: Start: Mirtazepine 7.5mg PO bedtime Repeat manager women QTC Monitor for oversedation Referral to outpatient therapist and prescriber <Clarita Maldonado NP - Last Filed: 06/18/23 13:59> Psychiatric consult placed for: suspecting depression, untreated. Multiple admissions. During psychiatric assessment, pt presents calm and cooperative, guard, alert and oriented. Pt reports feeling okay today; pt stated, sometimes I feel sad about everything. I get anxious too . Pt would not elaborate on what is making her sad and anxious . Pt reports difficulty sleeping four nights out of the week. She denies any current outpatient psychiatric providers or taking psychiatric medications. Pt stated, I was admitted psychiatrically once in my 20's because I was feeling suicidal but I never did anything ; poor historian. Pt reported hx of seeing a therapist when I was [age] but I don't remember for what . Pt denies SI/HI/VH/AH. Pt expressed interest in starting on an antidepressant and referrals to outpatient providers. Discussed risks/benefits of Mirtazepine;pt agreed to trial. Recommendation: Start: Mirtazepine 7.5mg PO bedtime Repeat manager women QTC Monitor for oversedation Referral to outpatient therapist and prescriber Pt may benefit from bridge referral Lidia Falk [phone] <Lux Barrera MD - Last Filed: 06/18/23 21:11> Total time managing care of this patient today _30___ minutes. <Clarita Maldonado NP - Last Filed: 06/18/23 13:59> Patient educated on: medication risk/benefits <Clarita Maldonado NP - Last Filed: 06/18/23 13:59> Informed Consent: understands <Clarita Maldonado NP - Last Filed: 06/18/23 13:59>
--- NOTE | 2023-06-18 15:01 | MHC.CM.PN ---
No discharge today. Patient is running a low BP. A Rapid response was called early this morning. She received HD today. DP home with resumption of [employer] and HD. Patient's Sister will provide transport home at discharge.
[2023-06-18 15:26] LABS: Glucose, Whole Blood 135 mg/dL (60-115)
--- NOTE | 2023-06-18 15:31 | P.PNIM_ITS ---
Subjective Subjective Date of Service: 06/18/23 Interval History: Seen and evaluated reports feeling fatigue and tired BP dropped down since last night Had syncopal episode with low BP tolerating dialysis Review of Systems Review of Systems: Yes all other systems are reviewed and are negative Physical Exam 2 Vital Signs: Vital Signs: Last Vital Signs Temp 98.6 F 06/18/23 15:11 Pulse 67 06/18/23 15:11 Resp 16 06/18/23 15:11 BP 118/63 06/18/23 15:11 Pulse Ox 93 06/18/23 15:11 O2 Del Method Room Air 06/18/23 15:11 O2 Flow Rate 1 06/18/23 11:33 Oxygen Flow Rate 3 06/18/23 05:10 BMI result Body Mass Index 33.9 Const: Other: Constitutional : Awake, interactive Neck : Normal inspection, Supple Eyes: Legally blind Cardiovascular : RRR, elevated? JVP, trace lower extremity edema Respiratory : fair bilateral air entry,? basal fine crackles, no wheezes or rhonchi Gastrointestinal:? soft, lax, Normal bowel sounds, Non tender Skin : Warm, Dry. [id number] shallow ulceration planatar aspect left midfoot without surrounding erythema or purulent drainage Neurological : Alert & oriented x3, No focal deficit Objective Data Active Medications Acetaminophen (Acetaminophen 325 Mg Tablet) 975 mg PO Q6H PRN PRN Reason: Pain, Moderate(Pain Scale 4-6) Carvedilol (Carvedilol 12.5 Mg Tablet) 12.5 mg PO BID [facility]; Protocol Last Admin: 06/18/23 07:55 Dose: Not Given Documented By: KARLI Non-Admin Reason: hr low held per protocol Docusate Sodium (Docusate Sodium 100 Mg Capsule) 100 mg PO DAILY PRN PRN Reason: constipation Glucose (Glucose Gel 15 Gm Gel..Gram.) 15 gm PO Q15M PRN; Protocol PRN Reason: per Hypoglycemia Standing Ord. Hydralazine HCl (Hydralazine Hcl 50 Mg Tablet) 50 mg PO TID [facility]; Protocol Last Admin: 06/17/23 21:56 Dose: 50 mg Documented By: AARON Hydromorphone HCl (Hydromorphone Hcl 0.5 Mg/0.5 Ml Syringe) 0.5 mg IVPUSH Q4H PRN; Protocol PRN Reason: Pain, Severe (Pain Scale 7-10) Last Admin: 06/18/23 11:54 Dose: 0.5 mg Documented By: KARLI Dextrose (D10) 250 mls @ 750 mls/hr IV Q15M PRN PRN Reason: per Hypoglycemia Standing Ord. Last Infusion: 06/17/23 01:07 Dose: Infused Documented By: ESTIVEN Dextrose (D10) 250 mls @ 750 mls/hr IV Q15M PRN; Protocol PRN Reason: per Hypoglycemia Standing Ord. Doxycycline Hyclate 100 mg/ (Sodium Chloride) 250 mls @ 166.67 mls/hr IV Q12H [facility] Last Infusion: 06/18/23 07:58 Dose: Infused Documented By: KARLI Insulin Human Lispro (Insulin Lispro 100 Unit/Ml 3 Ml Vial) 0 unit SUBCUT QIDACHS [facility]; Protocol Last Admin: 06/18/23 15:27 Dose: Not Given Documented By: DAE Non-Admin Reason: No Insulin Coverage Isosorbide Mononitrate (Isosorbide Mononitrate 30 Mg Tab.Er.24h) 30 mg PO DAILY [facility]; Protocol Last Admin: 06/17/23 09:58 Dose: 30 mg Documented By: THIEN Levetiracetam (Levetiracetam 1,000 Mg Tablet) 1,000 mg PO DAILY [facility] Last Admin: 06/18/23 11:28 Dose: Not Given Documented By: KARLI Non-Admin Reason: Patient Refused Nifedipine (Nifedipine Er 90 Mg Tab.Er.24) 90 mg PO DAILY [facility]; Protocol Last Admin: 06/17/23 09:58 Dose: 90 mg Documented By: THIEN Ondansetron HCl (Ondansetron Hcl 4 Mg/2 Ml Vial) 4 mg IVPUSH Q6H PRN PRN Reason: Nausea and Vomiting Last Admin: 06/17/23 19:47 Dose: 4 mg Documented By: AARON Oxycodone HCl (Oxycodone Hcl Immed Release 5 Mg Tablet) 5 mg PO TID PRN PRN Reason: Pain, Moderate(Pain Scale 4-6) Sodium Chloride (0.9 % Sodium Chloride Flush 3 Ml Syringe) [facility] Last Admin: 06/18/23 07:58 Dose: 3 ml Documented By: KARLI Torsemide (Torsemide 20 Mg Tablet) 40 mg PO BID [facility]; Protocol Last Admin: 06/17/23 21:57 Dose: 40 mg Documented By: AARON Vitamin D (Cholecalciferol (Vitamin D3) 25 Mcg Tablet) 50 mcg PO DAILY [facility] Last Admin: 06/18/23 08:31 Dose: Not Given Documented By: KARLI Non-Admin Reason: Patient Refused Labs 06/17/23 05:30 06/17/23 05:30 Labs: Laboratory Results - last 24 hr 06/17/23 06/17/23 06/18/23 16:56 21:34 05:07 POC Glucose 114 136 H 135 H 06/18/23 06/18/23 06/18/23 07:22 10:58 15:16 POC Glucose 158 H 165 H 135 H Microbiology Microbiology Results: Microbiology 06/16/23 15:32 Blood Culture - Preliminary Blood - Venous No growth after 24 hours. 06/16/23 15:25 Blood Culture - Preliminary Blood - Venous No growth after 24 hours. Assessment and Plan (1) MDD (major depressive disorder), recurrent episode: Status: Acute (2) Type 2 diabetes mellitus with hyperglycemia, with long-term current use of insulin: Status: Acute (3) End-stage renal disease (ESRD): Status: Acute Plan Shereen Taylor is a 32 years old woman admitted with: Acute Hyperkalemia and metabolic lactic acidosis in the setting of underlying end-stage renal disease on HD noncompliance with hemodialysis on Saturdays Had HD this morning Nephrology consult Depression PSych evaluation, start Mirtazapine follow as outpatient Hypotension responded partialy to IVF Hold nifedipine, hydralazine, carvedilol and losartan. she will likely need to restart them Hyponatremia, mild. Correction with dialysis Chronic diabetic left foot ulcer IV antibiotic therapy with doxycycline. No signs to suggest OM Type 2 diabetes mellitus. Diabetic diet. Insulin sliding scale. HFrEF/cardiomyopathy. Not decompensated. Seizure disorder. Continue Depakote. Chronic anemia. Continue to monitor. DVT prophylaxis: Heparin Code status: Full Patient will need hospitalization overnight for urgent hemodialysis and possible left foot ulcer infection treatment with IV antibiotic therapy and further evaluation with left foot MRI to assess for left foot osteomyelitis. Quality Stroke Does the patient have a stroke diagnosis?: No VTE Prior VTE?: No VTE Risk Level:: Medical - moderate - high VTE Device Contraindication: N/A - Device Ordered VTE Drug Contraindication: N/A - Med Ordered
[2023-06-18] MEDS: levETIRAcetam 1,000 MG TABLET 1000 MG PO (16:46)
[2023-06-18 20:58] LABS: Glucose, Whole Blood 135 mg/dL (60-115)
[2023-06-19] VITALS (13 sets, daily range): BP systolic 108–207; BP diastolic 55–102; PULSE 76–85; RESP 12–20; TEMP 36.6–37.2; O2SAT 95–98
[2023-06-19] MEDS: HYDROmorphone HCl 0.5 MG/0.5 ML SYRINGE IVPUSH ×4 (01:21→14:39)
[2023-06-19] MEDS: Doxycycline Hyclate 100 MG in 0.9 % Sodium Chloride 250 ML 166.67 MG IV ×2 (05:39→18:05)
[2023-06-19 07:32] LABS: Glucose, Whole Blood 78 mg/dL (60-115)
[2023-06-19 07:34] LABS: Anion Gap 15 (12-20); Blood Urea Nitrogen 60 mg/dL (9-16); Calcium 8.1 mg/dL (8.4-10.2); Carbon Dioxide 21 mmol/L (22-29); Chloride 105 mmol/L (96-108); Estimated Glomerular Filt Rate 8; Glucose Random 81 mg/dL (60-115); Potassium 4.5 mmol/L (3.3-5.1); Sodium 136 mmol/L (135-145)
[2023-06-19] MEDS: ondansetron HCL 4 MG/2 ML VIAL IVPUSH (09:35)
[2023-06-19 14:03] LABS: Glucose, Whole Blood 68 mg/dL (60-115)
[2023-06-19] MEDS: Labetalol HCL 100 MG/20 ML VIAL 10 MG IVPUSH (14:30)
[2023-06-19] MEDS: 0.9 % Sodium Chloride Flush 3 ML SYRINGE IVFLUSH (14:31)
[2023-06-19] MEDS: Prochlorperazine Edisylate 10 MG/2 ML VIAL 5 MG IVPUSH (14:57)
[2023-06-19] MEDS: hydrALAZINE HCl 20 MG/ML VIAL 10 MG IVPUSH (15:20)
[2023-06-19] MEDS: Glucose Gel 15 GM GEL..GRAM. PO (15:25)
[2023-06-19] MEDS: levETIRAcetam 1,000 MG TABLET 1000 MG PO (15:47)
[2023-06-19 16:01] LABS: Glucose, Whole Blood 69 mg/dL (60-115)
[2023-06-19 16:01] LABS: Glucose, Whole Blood 70 mg/dL (60-115)
[2023-06-19] MEDS: NIFEdipine ER 90 MG TAB.ER.24 PO (16:31)
[2023-06-19] MEDS: carvediloL 12.5 MG TABLET PO (16:31)
[2023-06-19] MEDS: hydrALAZINE HCl 50 MG TABLET PO (16:31)
--- NOTE | 2023-06-19 16:52 | HO.PM.IMPN ---
Subjective Subjective Date of Service: 06/19/23 Interval History: Seen and evaluated reports feeling fatigue and tired BP significantly elevated with associated nausea and vomiting Tolerated dialysis well Review of Systems Review of Systems: Yes all other systems are reviewed and are negative Physical Exam Vital Signs: Vital Signs: Last Vital Signs Temp 98.1 F 06/19/23 15:34 Pulse 83 06/19/23 16:31 Resp 19 06/19/23 15:34 BP 182/82 H 06/19/23 16:31 Pulse Ox 98 06/19/23 15:34 O2 Del Method Room Air 06/19/23 15:34 O2 Flow Rate 1 06/19/23 14:02 Oxygen Flow Rate 3 06/18/23 05:10 BMI result Body Mass Index 33.9 Const: Other: Constitutional : Awake, interactive, nauseated Neck : Normal inspection, Supple Eyes: Legally blind Cardiovascular : RRR, trace lower extremity edema Respiratory : fair bilateral air entry,? basal fine crackles, no wheezes or rhonchi Gastrointestinal:? soft, lax, Normal bowel sounds, Non tender Skin : Warm, Dry. [id number] shallow ulceration planatar aspect left midfoot without surrounding erythema or purulent drainage Neurological : Alert & oriented x3, No focal deficit Objective Data Active Medications Acetaminophen (Acetaminophen 325 Mg Tablet) 975 mg PO Q6H PRN PRN Reason: Pain, Moderate(Pain Scale 4-6) Carvedilol (Carvedilol 12.5 Mg Tablet) 12.5 mg PO BID [facility]; Protocol Last Admin: 06/19/23 16:31 Dose: 12.5 mg Documented By: SUSAN Docusate Sodium (Docusate Sodium 100 Mg Capsule) 100 mg PO DAILY PRN PRN Reason: constipation Glucose (Glucose Gel 15 Gm Gel..Gram.) 15 gm PO Q15M PRN; Protocol PRN Reason: per Hypoglycemia Standing Ord. Last Admin: 06/19/23 15:25 Dose: 15 gm Documented By: YOLIS Comments: pt poc low but patient unable to tolerate juice due to N/V Hydralazine HCl (Hydralazine Hcl 50 Mg Tablet) 50 mg PO TID [facility]; Protocol Last Admin: 06/19/23 16:31 Dose: 50 mg Documented By: SUSAN Dextrose (D10) 250 mls @ 750 mls/hr IV Q15M PRN PRN Reason: per Hypoglycemia Standing Ord. Last Infusion: 06/17/23 01:07 Dose: Infused Documented By: ESTIVEN Dextrose (D10) 250 mls @ 750 mls/hr IV Q15M PRN; Protocol PRN Reason: per Hypoglycemia Standing Ord. Doxycycline Hyclate 100 mg/ (Sodium Chloride) 250 mls @ 166.67 mls/hr IV Q12H [facility] Last Infusion: 06/19/23 08:11 Dose: Infused Documented By: YOLIS Insulin Human Lispro (Insulin Lispro 100 Unit/Ml 3 Ml Vial) 0 unit SUBCUT QIDACHS [facility]; Protocol Last Admin: 06/19/23 08:11 Dose: Not Given Isosorbide Mononitrate (Isosorbide Mononitrate 30 Mg Tab.Er.24h) 30 mg PO DAILY [facility]; Protocol Last Admin: 06/19/23 10:16 Dose: Not Given Documented By: YOLIS Non-Admin Reason: Patient Refused Levetiracetam (Levetiracetam 1,000 Mg Tablet) 1,000 mg PO DAILY [facility] Last Admin: 06/19/23 15:47 Dose: 1,000 mg Documented By: YOLIS Mirtazapine (Mirtazapine 7.5 Mg Tablet) 7.5 mg PO BEDTIME [facility] Last Admin: 06/18/23 21:02 Dose: Not Given Documented By: AARON Non-Admin Reason: Patient Refused Nifedipine (Nifedipine Er 90 Mg Tab.Er.24) 90 mg PO DAILY [facility]; Protocol Last Admin: 06/19/23 16:31 Dose: 90 mg Documented By: SUSAN Ondansetron HCl (Ondansetron Hcl 4 Mg/2 Ml Vial) 4 mg IVPUSH Q6H PRN PRN Reason: Nausea and Vomiting Last Admin: 06/19/23 09:35 Dose: 4 mg Documented By: YOLIS Oxycodone HCl (Oxycodone Hcl Immed Release 5 Mg Tablet) 5 mg PO TID PRN PRN Reason: Pain, Moderate(Pain Scale 4-6) Sodium Chloride (0.9 % Sodium Chloride Flush 3 Ml Syringe) 3 ml IVFLUSH QSHIFT [facility] Last Admin: 06/19/23 14:31 Dose: 3 ml Documented By: YOLIS Torsemide (Torsemide 20 Mg Tablet) 40 mg PO BID [facility]; Protocol Last Admin: 06/19/23 14:54 Dose: Not Given Documented By: YOLIS Non-Admin Reason: Patient Refused Vitamin D (Cholecalciferol (Vitamin D3) 25 Mcg Tablet) 50 mcg PO DAILY [facility] Last Admin: 06/19/23 10:16 Dose: Not Given Documented By: YOLIS Non-Admin Reason: Patient Refused Labs 06/17/23 05:30 06/19/23 06:14 Labs: Laboratory Results - last 24 hr 06/18/23 06/19/23 06/19/23 20:52 06:14 07:18 Hold Purple Top SEE NOTE Anion Gap 15 Estim Creat Clear Calc 14.0 Estimated GFR 8 POC Glucose 135 H 78 Random Glucose 81 Calcium 8.1 L D 06/19/23 06/19/23 06/19/23 13:58 15:45 15:50 Hold Purple Top Anion Gap Estim Creat Clear Calc Estimated GFR POC Glucose 68 69 70 Random Glucose Calcium Microbiology Microbiology Results: Microbiology 06/16/23 15:32 Blood Culture - Preliminary Blood - Venous No growth after 48 hours. 06/16/23 15:25 Blood Culture - Preliminary Blood - Venous No growth after 48 hours. Assessment and Plan (1) MDD (major depressive disorder), recurrent episode: Status: Acute (2) Cellulitis: Status: Acute (3) Type 2 diabetes mellitus with hyperglycemia, with long-term current use of insulin: Status: Acute Plan Shereen Taylor is a 32 years old woman admitted with: Hypertensive urgency SBP 208 with associated nause and vomiting likely from holding her meds for low BP yesterday IV Labetalol given then IV Hydralazine Restart nifedipine, hydralazine, carvedilol and losartan. monitor BP Hydralazine PRN IV if needed Acute Hyperkalemia and metabolic lactic acidosis in the setting of underlying end-stage renal disease on HD noncompliance with hemodialysis on Saturdays 2nd HD session today Nephrology following Depression PSych evaluation, start Mirtazapine follow as outpatient Hyponatremia, mild. Correction with dialysis Chronic diabetic left foot ulcer IV antibiotic therapy with doxycycline. No signs to suggest OM Type 2 diabetes mellitus. Diabetic diet. Insulin sliding scale. HFrEF/cardiomyopathy. Not decompensated. Seizure disorder. Continue Depakote. Chronic anemia. Continue to monitor. DVT prophylaxis: Heparin Code status: Full Patient will need hospitalization overnight for urgent hemodialysis and possible left foot ulcer infection treatment with IV antibiotic therapy and further evaluation with left foot MRI to assess for left foot osteomyelitis. Quality Stroke Does the patient have a stroke diagnosis?: No VTE Prior VTE?: No VTE Risk Level:: Medical - moderate - high VTE Device Contraindication: N/A - Device Ordered VTE Drug Contraindication: N/A - Med Ordered
[2023-06-19 20:20] LABS: Glucose, Whole Blood 72 mg/dL (60-115)
[2023-06-20 03:27] VITALS: BP 135/81; PULSE 78; RESP 20; TEMP 36.4; O2SAT 98
[2023-06-20 07:25] VITALS: BP 171/74; PULSE 83; RESP 82; TEMP 36.3; O2SAT 98
--- NOTE | 2023-06-20 07:29 | PC.NURSE ---
0200 pt declined po meds earlier in shift. requested pain meds, declined po medications which were offered. notified, order placed for IV acetaminophen x 1. pt declined medication, states it is not effective.
--- NOTE | 2023-06-20 07:39 | P.CONNP_ITS ---
History of Present Illness Reason for Consult Consult date: 06/20/23 Chief Complaint Chief complaint: Hyperkalemia History of Present Illness Narrative: 32 year old patient with history of ESRD admitted with hypertensive urgency. Patient with recurrent hospital admission usually on dialysis Sunday, and Sunday. At the time of the consultation she denies chest pain, shortness of breath, nausea, vomiting or diarrhea. Review of Systems Review of Systems 10 points ROS negative except for pertinent in [facility] Past Medical History Medical History (Updated 06/20/23 @ 07:40 by Jason Sanchez MD) Anemia Hypertension End-stage renal disease (ESRD) Foot ulcer CKD (chronic kidney disease) Hypertension Diabetic foot Vomiting Renal failure Hypertension Hyperkalemia Metabolic acidosis HFrEF (heart failure with reduced ejection fraction) ESRD on dialysis Migraine Diabetic foot ulcer associated with type 2 diabetes mellitus Chronic pain Gastroparesis Non-compliance with renal dialysis Hypertensive emergency Diabetes ESRD needing dialysis Cardiomyopathy delivery delivered Anemia in chronic kidney disease (CKD) CKD (chronic kidney disease) Headache, migraine Abnormal finding on echocardiogram Elevated troponin Chest pain Acute worsening of stage 3 chronic kidney disease Generalized edema Sepsis Cellulitis Pleural effusion CHF (congestive heart failure) (~06/07/22) Tachycardia Atypical chest pain Bone infection PAD (peripheral artery disease) Severe anemia Cellulitis and abscess of foot DM foot ulcer Osteomyelitis test positive test positive Asthma Depression with anxiety Diabetic retinopathy Type 2 diabetes mellitus with hyperglycemia, with long-term current use of insulin Blind right eye Diabetes Back pain Family History Family History Mother Coronary artery disease Myocardial infarction Stroke Diabetes mellitus Father Myocardial infarction Surgical History Surgical History 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 Social History Social History Household Members: Family Household Members Other:: sister Housing: House Do you presently have visiting nurse or other home services: No Unable to assess alcohol history related to: Unknown Alcohol intake: never 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 Patient Tobacco Use Status: Never used Tobacco e-Cigarette/Vaping Use: Never Used Second Hand Smoke Exposure: No Use of substances other than those prescribed or required for medical reasons: No Currently Displaying Signs/Symptoms of Drug Intoxication Withdrawal: No Have you been hit, kicked, punched, or otherwise hurt by someone within the past year? If so, by whom?: No Do you feel safe in your current relationship?: Yes Is there a partner from a previous relationship who is making you feel unsafe now?: No Are you made to feel afraid or neglected: No Advance Directives: Yes Advance Directives on File: Yes Advance Directives Date on File: 03/08/20 Do you have thoughts of harming others: None Do you have a plan to hurt others: No Plan Recently lost weight without trying: No Nutrition Risks: No Nutritional Risk Patient : No : No Poor oral hygiene: No service: No Current occupational status: unemployed and disabled Gender identity: Female Meds Allergies Allergy/AdvReac Type Severity Reaction Status Date / Time morphine [MORPHINE] Allergy Intermediate Itching Verified 06/16/23 14:12 azithromycin [From Zithromax] Allergy Hives Verified 06/16/23 14:12 gabapentin Allergy Facial Verified 06/16/23 14:12 Swelling tramadol Allergy Facial Verified 06/16/23 14:12 Swelling vancomycin Allergy Anaphylaxis Verified 06/16/23 14:12 Active Medications: Current Medications Acetaminophen (Acetaminophen 325 Mg Tablet) 975 mg PO Q6H PRN PRN Reason: Pain, Moderate(Pain Scale 4-6) Carvedilol (Carvedilol 12.5 Mg Tablet) 12.5 mg PO BID [facility]; Protocol Last Admin: 06/19/23 23:44 Dose: Not Given Docusate Sodium (Docusate Sodium 100 Mg Capsule) 100 mg PO DAILY PRN PRN Reason: constipation Glucose (Glucose Gel 15 Gm Gel..Gram.) 15 gm PO Q15M PRN; Protocol PRN Reason: per Hypoglycemia Standing Ord. Last Admin: 06/19/23 15:25 Dose: 15 gm Hydralazine HCl (Hydralazine Hcl 50 Mg Tablet) 50 mg PO TID [facility]; Protocol Last Admin: 06/19/23 23:43 Dose: Not Given Dextrose (D10) 250 mls @ 750 mls/hr IV Q15M PRN PRN Reason: per Hypoglycemia Standing Ord. Last Infusion: 06/17/23 01:07 Dose: Infused Dextrose (D10) 250 mls @ 750 mls/hr IV Q15M PRN; Protocol PRN Reason: per Hypoglycemia Standing Ord. Doxycycline Hyclate 100 mg/ (Sodium Chloride) 250 mls @ 166.67 mls/hr IV Q12H [facility] Last Admin: 06/20/23 06:30 Dose: Not Given Insulin Human Lispro (Insulin Lispro 100 Unit/Ml 3 Ml Vial) 0 unit SUBCUT QIDACHS [facility]; Protocol Last Admin: 06/19/23 21:29 Dose: Not Given Isosorbide Mononitrate (Isosorbide Mononitrate 30 Mg Tab.Er.24h) 30 mg PO DAILY [facility]; Protocol Last Admin: 06/19/23 10:16 Dose: Not Given Levetiracetam (Levetiracetam 1,000 Mg Tablet) 1,000 mg PO DAILY [facility] Last Admin: 06/19/23 15:47 Dose: 1,000 mg Mirtazapine (Mirtazapine 7.5 Mg Tablet) 7.5 mg PO BEDTIME [facility] Last Admin: 06/19/23 23:44 Dose: Not Given Nifedipine (Nifedipine Er 90 Mg Tab.Er.24) 90 mg PO DAILY [facility]; Protocol Last Admin: 06/19/23 16:31 Dose: 90 mg Ondansetron HCl (Ondansetron Hcl 4 Mg/2 Ml Vial) 4 mg IVPUSH Q6H PRN PRN Reason: Nausea and Vomiting Last Admin: 06/19/23 09:35 Dose: 4 mg Oxycodone HCl (Oxycodone Hcl Immed Release 5 Mg Tablet) 5 mg PO TID PRN PRN Reason: Pain, Moderate(Pain Scale 4-6) Sodium Chloride (0.9 % Sodium Chloride Flush 3 Ml Syringe) 3 ml IVFLUSH QSHIFT [facility] Last Admin: 06/20/23 00:00 Dose: 3 ml Torsemide (Torsemide 20 Mg Tablet) 40 mg PO BID [facility]; Protocol Last Admin: 06/19/23 23:43 Dose: Not Given Vitamin D (Cholecalciferol (Vitamin D3) 25 Mcg Tablet) 50 mcg PO DAILY [facility] Last Admin: 06/19/23 10:16 Dose: Not Given Home Medications ?Medication ?Instructions ?Recorded ?Confirmed ?Last Taken ?Type carvedilol 12.5 mg tablet 12.5 mg PO BID 06/05/23 06/17/23 06/16/23 History docusate sodium 100 mg capsule 100 mg PO DAILY PRN constipation 04/09/24 04/21/24 Unknown History hydralazine 100 mg tablet 50 mg PO TID 06/05/23 06/17/23 06/16/23 History isosorbide mononitrate 30 mg 30 mg PO DAILY 06/05/23 06/17/23 06/16/23 History tablet,extended release 24 hr losartan 50 mg tablet 50 mg PO DAILY 06/05/23 06/17/23 06/16/23 History torsemide 20 mg tablet 40 mg PO BID 06/05/23 06/17/23 06/16/23 History levetiracetam 1,000 mg tablet 1,000 mg PO DAILY 06/17/23 06/17/23 06/16/23 History oxycodone 5 mg tablet 5 mg PO TID PRN Pain 06/17/23 06/17/23 Unknown History Physical Exam Vital Signs: Last Vital Signs Temp 97.4 F 06/20/23 07:25 Pulse 83 06/20/23 07:25 Resp 82 H 06/20/23 07:25 BP 171/74 H 06/20/23 07:25 Pulse Ox 98 06/20/23 07:25 O2 Del Method Nasal Cannula 06/20/23 07:25 O2 Flow Rate 2 06/20/23 07:25 Oxygen Flow Rate 3 06/18/23 05:10 BMI result Body Mass Index 33.9 Const General: comfortable and no acute distress HEENT Head: Yes normocephalic and Yes atraumatic Neck Neck: Yes supple Resp Auscultation: diminished lung sounds Cardio Heart sounds: S1 normal heart sound present and S2 normal heart sound present GI Palpation (GI): Soft to palpation and nontender Extrem General: Yes normal to inspection Results Lab Results 06/17/23 05:30 06/19/23 06:14 Lab results: Chemistry 06/19/23 06:14 Sodium 136 Potassium 4.5 D Carbon Dioxide 21 L BUN 60 H Creatinine 6.10 H* Calcium 8.1 L D Assessment and Plan (1) End-stage renal disease (ESRD): Status: Acute (2) Hypertension: Qualifiers: Hypertension type: renovascular hypertension Qualified Code(s): I15.0 - Renovascular hypertension Status: Acute (3) Anemia: Status: Acute Plan ESRD on HD t-t- at [facility] followed by Dr Siddiqi h/o non adherence and recurrent admission to hospital HFpEF nephrogenic anemia REC HD in am VIPUL per protocol renal diet P binder Procedures Date of Service Date of Service: 06/20/23
[2023-06-20 07:56] LABS: Glucose, Whole Blood 66 mg/dL (60-115)
--- NOTE | 2023-06-20 08:59 | PC.NURSE ---
patient refused all her morning medications including Procrit .
[2023-06-20] MEDS: ondansetron HCL 4 MG/2 ML VIAL IVPUSH (09:33)
--- NOTE | 2023-06-20 09:35 | PC.NURSE ---
Pt reported that she is nauseous , RN entered to the pt's room and pt was sleeping and no n/v noted , pt woke up and she reported that she is nauseous .
[2023-06-20] MEDS: carvediloL 12.5 MG TABLET PO (10:58)
[2023-06-20] MEDS: Isosorbide Mononitrate 30 MG TAB.ER.24H PO (10:58)
[2023-06-20] MEDS: NIFEdipine ER 90 MG TAB.ER.24 PO (10:58)
[2023-06-20] MEDS: levETIRAcetam 1,000 MG TABLET 1000 MG PO (10:58)
[2023-06-20] MEDS: Torsemide 20 MG TABLET 40 MG PO (10:58)
[2023-06-20] MEDS: hydrALAZINE HCl 50 MG TABLET PO (10:59)
[2023-06-20] MEDS: 0.9 % Sodium Chloride Flush 3 ML SYRINGE IVFLUSH ×2 (10:59)
[2023-06-20 11:28] VITALS: BP 128/75; PULSE 76; RESP 18; TEMP 36.2; O2SAT 96
--- NOTE | 2023-06-20 11:59 | PC.NURSE ---
wound dressing to suzy feet done this am
[2023-06-20 12:04] LABS: Glucose, Whole Blood 134 mg/dL (60-115)
--- NOTE | 2023-06-20 12:57 | PM.DS ---
DS: Providers Provider Date of Service: 06/20/23 Date of admission: 06/17/23 02:52 Primary care physician: Abdon Beard MD Consults: 06/17/23 06:34 Consult to Wound Care Routine Reason for consultation: Left foot plantar ulcer 06/17/23 20:12 Consult to Psychiatry Routine Consulting Provider: Psych Covering Reason for consultation: Suspecting depression, untreated. Multiple admissions. Has provider been notified: No 06/18/23 08:16 Consult to Nephrology Routine Consulting Provider: [facility] 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 Also complaining of nausea, vomiting and bilateral foot pain over the last 2 days. Denies headache, chest pain, fever, chills or shortness on breath. She stated that she has not had hemodialysis for 1 week because she was hospitalized at [facility] for seizures. Patient is a very vague historian. Patient has had numerous hospitalizations for urgent hemodialysis as she is noncompliant with hemodialysis on Sunday. In the ED, she was found to have hypertension. There is no tachycardia, hypotension or low O2 sats. Blood workup is remarkable for pancytopenia. Initial potassium was 6.1. These metabolic acidosis (CO2 is 16). BNP is elevated but lower than prior. Troponin is slightly elevated, but stable. Magnesium is 3.1. Foot x-ray showed no evidence of acute breath of fracture, dislocation or bony destructive lesions. ED Tx: Dilaudid 1.5 mg IV, multiple doses of D25, Lokelma 10 g p.o., insulin 9 units IV, calcium gluconate 2 g IV, Zofran 4 mg IV, acetaminophen 975 mg p.o. Hospital course # Hypertensive urgency Developed as result of holding her meds after dialysis for low BP. SBP 208 with associated nause and vomiting. Improved with IV Labetalol given then IV Hydralazine along with oral nifedipine, hydralazine, carvedilol and losartan with fair response. . # Acute Hyperkalemia and metabolic lactic acidosis in the setting of underlying end-stage renal disease on HD secondary to noncompliance with hemodialysis on Saturdays. She had 2 sessions of dialysis while inpatient as she was followed by nephrology. # Worsening chronic diabetic left foot ulcer treated IV antibiotic therapy with doxycycline. No signs to suggest OM as she was followed by wound nurse who has recommendations below. Discharge Plan Continue Doxycycine 100 mg twice daily Continue Mirtazapine 7.5 mg daily Local wound care Follow with psychiatry team as outpatient Wound care: 1. Turn and Reposition every 2 hours and as needed for patient comfort. 2. Off Load all bony prominences with use of pillows and heel boots as needed. 3. Provide adequate and supplemental nutrition. 4. Maintain blood glucose levels per Providers orders. 5. Right and Left Foot - Cleanse and irrigate with NS, Pat dry. Apply cut to size Durafiber AG to wound bed , cover with dry gauze, ABD pad and gauze wrap. Change every other day. Off Load Pressure. Time Attestation Discharge Coordination Time (in mins): 38 Quality: Safe Use of Opioids Does Pt have an Active Cancer Diagnosis on the Problem List?: No Quality: Stroke Does the patient have a stroke diagnosis?: No Physical Exam Vital Signs: Vital Signs: Last Vital Signs Temp 97.2 F 06/20/23 11:28 Pulse 76 06/20/23 11:28 Resp 18 06/20/23 11:28 BP 128/75 06/20/23 11:28 Pulse Ox 96 06/20/23 11:28 O2 Del Method Room Air 06/20/23 11:28 O2 Flow Rate 2 06/20/23 07:25 Oxygen Flow Rate 3 06/18/23 05:10 BMI result Body Mass Index 33.9 Const: Other: Constitutional : Awake, interactive, nauseated Neck : Normal inspection, Supple Eyes: Legally blind Cardiovascular : RRR, trace lower extremity edema Respiratory : fair bilateral air entry,? basal fine crackles, no wheezes or rhonchi Gastrointestinal:? soft, lax, Normal bowel sounds, Non tender Skin : Warm, Dry. [id number] shallow ulceration planatar aspect left midfoot without surrounding erythema or drainage Neurological : Alert & oriented x3, No focal deficit DS: Data Data Completed and Pending Completed studies during hospitalization [Text1]: Procedures Detachment at Right Foot, Partial 1st Ray, Open Approach (03/01/20) Detachment at Right Foot, Partial 2nd Ray, Open Approach (03/01/20) Detachment at Right Foot, Partial 3rd Ray, Open Approach (03/01/20) Detachment at Right Foot, Partial 4th Ray, Open Approach (03/01/20) Detachment at Right Foot, Partial 5th Ray, Open Approach (03/01/20) Drainage of Right Pleural Cavity, Percutaneous Approach (01/14/21) Excision of Left Foot Skin, External Approach (03/10/23) Excision of Stomach, Pylorus, Via Natural or Artificial Opening Endoscopic, Diagnostic (08/27/22) Fluoroscopy of Superior Vena Cava, Guidance (08/14/22) Insertion of Infusion Device into Right Atrium, Percutaneous Approach (08/14/22) Insertion of Infusion Device into Superior Vena Cava, Percutaneous Approach (01/14/21) Insertion of Tunneled Vascular Access Device into Chest Subcutaneous Tissue and Fascia, Percutaneous Approach (08/14/22) Performance of Urinary Filtration, Intermittent, Less than 6 Hours Per Day (06/04/23) Removal of Infusion Device from Great Vessel, External Approach (01/14/21) Transfusion of Nonautologous Red Blood Cells into Peripheral Vein, Percutaneous Approach (04/22/22) Labs on day of discharge: Laboratory Results - last 24 hr 06/19/23 06/19/23 06/19/23 13:58 15:45 15:50 POC Glucose 68 69 70 06/19/23 06/20/23 06/20/23 20:11 07:28 11:27 POC Glucose 72 66 134 H Preliminary micro results at discharge 06/16/23 15:32 Blood Culture - Preliminary Blood - Venous No growth after 48 hours. 06/16/23 15:25 Blood Culture - Preliminary Blood - Venous No growth after 48 hours. Imaging foot XR : Radiologist's impression: ITS Impressions Foot X-Ray 06/16/23 18:26 Impression: Extensive chronic appearing and postoperative changes. I do not appreciate any acute superimposed fracture or dislocation. I do not appreciate any acute bony destructive lesions in this setting. If there is persistent clinical concern, MRI would be more sensitive. Foot X-Ray 06/16/23 18:26 Impression: Extensive chronic appearing and postoperative changes. I do not appreciate any acute superimposed fracture or dislocation. I do not appreciate any acute bony destructive lesions in this setting. If there is persistent clinical concern, MRI would be more sensitive. Discharge Plan Discharge Anticipated Discharge Date/Time: 06/20/23 12:48 Patient Disposition: Home Health Service Discharge Diagnosis: Wound ulcer with cellulitis Referrals: Abdon Beard MD [Primary Care Provider] - 1 Week Discharge Medications: New mirtazapine 7.5 mg Tablet 7.5 mg PO BEDTIME Qty: 90 0RF doxycycline monohydrate 100 mg capsule 100 mg PO BID Qty: 14 0RF Continued (DME) off loading boot Kit See Rx Instructions .Route Qty: 1 0RF Rx Instructions: As directed losartan 50 mg tablet 50 mg PO DAILY carvedilol 12.5 mg tablet 12.5 mg PO BID torsemide 20 mg tablet 40 mg PO BID isosorbide mononitrate 30 mg tablet extended release 24 hr 30 mg PO DAILY hydralazine 100 mg tablet 50 mg PO TID docusate sodium 100 mg capsule 100 mg PO DAILY PRN (Reason: constipation) oxycodone 5 mg tablet 5 mg PO TID PRN (Reason: Pain) levetiracetam 1,000 mg tablet 1,000 mg PO DAILY nifedipine 90 mg Tablet Extended Release 24hr 90 mg PO DAILY Qty: 30 0RF Protocol: Hold for SBP< HOLD for SBP < : 90 Rx Instructions: replaces prior dose of 60 mg daily Discharge Orders: Discharge Order (Routine); Ordered 06/20/23 Ordered By: Cheyenne Sears Diet: Low salt diet Activity on Discharge: As tolerated Stand Alone Forms: Patient Portal Discharge page Print Language: Maori Activity Restrictions/Additional Instructions: 1. Turn and Reposition every 2 hours and as needed for patient comfort. 2. Off Load all bony prominences with use of pillows and heel boots as needed. 3. Provide adequate and supplemental nutrition. 4. Maintain blood glucose levels per Providers orders. 5. Right and Left Foot - Cleanse and irrigate with NS, Pat dry. Apply cut to size Durafiber AG to wound bed , cover with dry gauze, ABD pad and gauze wrap. Change every other day. Off Load Pressure. Care Plan Goals: Read below Health Concerns: Read below Plan of Treatment: Read below Assessment: Continue Doxycycine 100 mg twice daily Continue Mirtazapine 7.5 mg daily Local wound care Follow with psychiatry team as outpatient Patient Instructions: Doxycycline (By mouth), Mirtazapine (By mouth)
--- NOTE | 2023-06-20 13:17 | MHC.CM.PN ---
IMM sent to HCP 06/20/23, pt has been medically cleared for DC, she will go home via family transport, and have home care services from [facility].
--- NOTE | 2023-06-20 15:28 | P.CDIM_ITS ---
PROVIDER RESPONSE TEXT: To clarify, the appropriate diagnosis supported by the clinical indicators: Acute QUERY TEXT: PHYSICIAN'S DOCUMENTATION REQUEST Date of Query: 06/20/2023 08:20 AM EDT Patient Name: Shereen Taylor Admit Date: 06/17/2023 Dear Cheyenne Sears, A review of the medical record indicates additional documentation may be needed. Please review below and update the documentation accordingly. Clinical Indicators: Per Hospitalist Progress Note 06/19/23: metabolic lactic acidosis in the setting of underlying end-stage renal disease on HD Clarify which of the following accurately represents the acuity of the metabolic lactic acidosis. Possible options might include: Acute Acute on chronic Compensated Chronic stable condition Remission Other (explain) Clinically unable to determine (explain) Thank you, Latoya Hooker RN Use of terms such as suspected, likely, concern for, or probable (associated with a specific diagnosi s that is being evaluated, monitored, or treated as if it exists) are acceptable and can be coded in the inpatient se tting, when documented at the time of discharge. Please use your independent medical judgment in providing your response. THIS QUERY IS PART OF THE PERMANENT MEDICAL RECORD
== END 2023-06-20 13:33 | disposition home health service (06) | DRG 640 ==
LOC: HO.ED 22:27 → HO.EDOVER 06-17 03:15 → HO.IMC 06-17 05:32
PROVIDERS: Physician Assistant Medical; Admitting Provider Internal Medicine; Emergency Provider Emergency Medicine; PCP Internal Medicine; Visit Provider Student in an Organized Health Care Education/Training Program
DX: E87.5 Hyperkalemia (principal); I13.2 Hypertensive heart and chronic kidney disease with heart failure and with stage 5 chronic kidney disease, or end stage renal disease; N18.6 End stage renal disease; L03.116 Cellulitis of left lower limb; I50.32 Chronic diastolic (congestive) heart failure; L97.528 Non-pressure chronic ulcer of other part of left foot with other specified severity; I42.9 Cardiomyopathy, unspecified; F33.9 Major depressive disorder, recurrent, unspecified; G40.909 Epilepsy, unspecified, not intractable, without status epilepticus; D63.1 Anemia in chronic kidney disease; E87.21 Acute metabolic acidosis; E11.628 Type 2 diabetes mellitus with other skin complications; E11.65 Type 2 diabetes mellitus with hyperglycemia; I16.0 Hypertensive urgency; E87.1 Hypo-osmolality and hyponatremia; E11.621 Type 2 diabetes mellitus with foot ulcer; J84.10 Pulmonary fibrosis, unspecified; E11.22 Type 2 diabetes mellitus with diabetic chronic kidney disease; Z99.2 Dependence on renal dialysis; Z91.158 Patient's noncompliance with renal dialysis for other reason; I95.9 Hypotension, unspecified; Z20.822 Contact with and (suspected) exposure to COVID-19; Z79.4 Long term (current) use of insulin; Z79.899 Other long term (current) drug therapy
CPT/HCPCS: 0241U; 36415; 73630; 80048; 80053; 82947; 83605; 83735; 83880; 84484; 85025; 86140; 87040; 90999; 93005; 94799; 99285; J0131; J0360; J0613; J0737; J1170; J1920; J2405

== ENCOUNTER → 2023-06-16 14:22 | Outpatient (BNV) | payer OTHER, SELFPAY | PROVIDERS: Admitting Provider Internal Medicine; Emergency Provider Emergency Medicine; PCP Internal Medicine; Visit Provider Internal Medicine | DX: R94.31 Abnormal electrocardiogram [ECG] [EKG] (principal) | CPT/HCPCS: 93010 ==

== ENCOUNTER → 2023-06-17 02:52 | Outpatient (BNV) | payer OTHER, SELFPAY | PROVIDERS: Admitting Provider Internal Medicine; Emergency Provider Emergency Medicine; PCP Internal Medicine; Visit Provider Internal Medicine | DX: I12.0 Hypertensive chronic kidney disease with stage 5 chronic kidney disease or end stage renal disease (principal); N18.6 End stage renal disease; Z99.2 Dependence on renal dialysis; D63.1 Anemia in chronic kidney disease | CPT/HCPCS: 99223; 99233; 99239; 99499 ==

== ENCOUNTER → 2023-06-17 02:52 | Outpatient (BNV) | payer OTHER, SELFPAY | PROVIDERS: Admitting Provider Internal Medicine; Emergency Provider Emergency Medicine; PCP Internal Medicine; Visit Provider Registered Nurse | DX: F33.1 Major depressive disorder, recurrent, moderate (principal) | CPT/HCPCS: 99222 ==

== ENCOUNTER 2023-06-24 13:52 | Inpatient (IN) | payer OTHER, SELFPAY ==
--- NOTE | ~2023-06-24 | XR_ITS ---
EXAMINATION: XR CHEST CLINICAL INFORMATION: Shortness of breath COMPARISON: X-ray 06/12/2023 TECHNIQUE: Frontal view of the chest was obtained. FINDINGS: Rotated positioning. Right IJ central line tip projected in the region of the upper right atrium. Low lung volumes. Redemonstrated is enlargement of the cardiac silhouette, more prominent from previous, probably accentuated by rotated positioning. Suspected mild basilar atelectasis. No evidence of significant pleural effusion, or pulmonary edema, . No significant pneumothorax. XR/XR chest 1V IMPRESSION: Cardiac silhouette is enlarged, more prominent as compared to previous, probably related to rotated positioning. Suspected bibasilar atelectasis.
--- NOTE | 2023-06-24 14:07 | ECG_ITS ---
Test Reason : CVA Blood Pressure : / mmHG Vent. Rate : 076 BPM Atrial Rate : 076 BPM P-R Int : 170 ms QRS Dur : 150 ms QT Int : 464 ms P-R-T Axes : 053 -24 078 degrees QTc Int : 522 ms Normal sinus rhythm Possible Left atrial enlargement Right bundle branch block Abnormal ECG When compared with ECG of 16-JUN-2023 14:22, No significant change was found Referred By: Kasia Ramirez Electronically Signed By:JASKARAN COOL
--- NOTE | 2023-06-24 14:07 | ED_ITS ---
HPI - Altered Mental Status General Chief Complaint: General Medical Stated Complaint: AMS SOB Time Seen by Provider: 06/24/23 13:59 Source: patient, EMS, RN notes reviewed, old records reviewed and physician Mode of arrival: EMS Limitations: language barrier History of Present Illness HPI narrative: 32-year-old Gambian-speaking female with a history of ESRD on dialysis, DM, HTN, gastroparesis, seizure disorder, blindness, asthma, HFeEF (40%), chronic left foot ulcer, multiple toe amputations, history of pericarditis with recent admission to [facility] for hypertensive urgency, noncompliance with dialysis who presents to the ER for evaluation of altered mental status. Per EMS they were called to the house for lethargy and confusion. Patient was minimally responsive and required sternal rub and aggressive stimulation to arouse. She reportedly has not had dialysis since 06/16 per EMS. There was no report of seizure activity at home. In route to the hospital patient spontaneously ?came to. ? she was not confused, verbal and acting at her baseline. She states she slept in this morning and did not take any medications. She states she is on dialysis Tuesdays and and never goes on Saturdays. Per documentation patient was discharged from the hospital 4 days ago on 06/19. She may have received dialysis that day. She denies any shortness of breath. She reports pain on deep inspiration. She reports all over body pain as well as right eye pain. She states she has been blind in the right eye for several years and has had pain in the right eye for several months. She does not have an eye doctor. MD complaint: altered mental status Onset (ago): unknown Severity: severe Context: history of similar presentation, diabetes and other (ESRD) Associated symptoms: chest pain Related Data Home Medications ?Medication ?Instructions ?Recorded ?Confirmed carvedilol 12.5 mg tablet 12.5 mg PO BID 06/05/23 06/17/23 docusate sodium 100 mg capsule 100 mg PO DAILY PRN constipation 06/05/23 06/17/23 hydralazine 100 mg tablet 50 mg PO TID 06/05/23 06/17/23 isosorbide mononitrate 30 mg 30 mg PO DAILY 06/05/23 06/17/23 tablet,extended release 24 hr losartan 50 mg tablet 50 mg PO DAILY 06/05/23 06/17/23 torsemide 20 mg tablet 40 mg PO BID 06/05/23 06/17/23 levetiracetam 1,000 mg tablet 1,000 mg PO DAILY 06/17/23 06/17/23 oxycodone 5 mg tablet 5 mg PO TID PRN Pain 06/17/23 06/17/23 Previous Rx's ?Medication ?Instructions ?Recorded off loading boot #1 ea 03/14/23 nifedipine 90 mg tablet,extended 90 mg PO DAILY #30 tabs 05/24/23 release 24 hr doxycycline monohydrate 100 mg 100 mg PO BID #14 caps 06/20/23 capsule mirtazapine 7.5 mg tablet 7.5 mg PO BEDTIME #90 tabs 06/20/23 Allergies Allergy/AdvReac Type Severity Reaction Status Date / Time morphine [MORPHINE] Allergy Intermediate Itching Verified 06/24/23 14:18 azithromycin [From Zithromax] Allergy Hives Verified 06/24/23 14:18 gabapentin Allergy Facial Verified 06/24/23 14:18 Swelling tramadol Allergy Facial Verified 06/24/23 14:18 Swelling vancomycin Allergy Anaphylaxis Verified 06/24/23 14:18 Review of Systems 2 Review of Systems: Yes all other systems are reviewed and are negative COUNT INCLUDES THE [facility] Past Medical History Medical History (Updated 06/24/23 @ 15:44 by JOVON Frank) MDD (major depressive disorder), recurrent episode Anemia Hypertension End-stage renal disease (ESRD) Foot ulcer CKD (chronic kidney disease) Hypertension Diabetic foot Vomiting Renal failure Hypertension Hyperkalemia Metabolic acidosis HFrEF (heart failure with reduced ejection fraction) ESRD on dialysis Migraine Diabetic foot ulcer associated with type 2 diabetes mellitus Chronic pain Gastroparesis Non-compliance with renal dialysis Hypertensive emergency Diabetes ESRD needing dialysis Cardiomyopathy delivery delivered Anemia in chronic kidney disease (CKD) CKD (chronic kidney disease) Headache, migraine Abnormal finding on echocardiogram Elevated troponin Chest pain Acute worsening of stage 3 chronic kidney disease Generalized edema Sepsis Cellulitis Pleural effusion CHF (congestive heart failure) (~06/07/22) Tachycardia Atypical chest pain Bone infection PAD (peripheral artery disease) Severe anemia Cellulitis and abscess of foot DM foot ulcer Osteomyelitis test positive test positive Asthma Depression with anxiety Diabetic retinopathy Type 2 diabetes mellitus with hyperglycemia, with long-term current use of insulin Blind right eye Diabetes Back pain Surgical History 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 Family History Family History Mother Coronary artery disease Myocardial infarction Stroke Diabetes mellitus Father Myocardial infarction Social History Social History Household Members: Family Household Members Other:: sister Housing: House Do you presently have visiting nurse or other home services: No Unable to assess alcohol history related to: Unknown Alcohol intake: never 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 Patient Tobacco Use Status: Never used Tobacco Smoked in Last 30 Days: No e-Cigarette/Vaping Use: Never Used Second Hand Smoke Exposure: No Use of substances other than those prescribed or required for medical reasons: No Advance Directives: Yes Advance Directives on File: Yes Advance Directives Date on File: 03/08/20 Do you have a plan to hurt others: No Plan service: No Current occupational status: unemployed and disabled Gender identity: Female Physical Exam ED Vital Signs: Vital Signs - 24 hr 06/24/23 14:15 06/24/23 14:35 06/24/23 15:59 Temperature 97.7 F 97.6 F 97.6 F Pulse Rate 79 76 74 Respiratory Rate 17 17 20 Blood Pressure 195/105 H 193/114 H 185/102 H Pulse Oximetry 100 95 94 Oxygen Delivery Method Room Air Room Air Room Air BMI result Body Mass Index 30.2 Appearance: Alert. Oriented X3. Poorly kempt Head: normocephalic, atraumatic. Eyes: Right eye is diffusely injected, corneal haziness on the left ENT: Pharynx normal. No tonsillar swelling or exudate. Neck: Normal inspection. Neck supple. Positive JVD CVS: Normal heart rate and rhythm. Pulses normal. Respiratory: No respiratory distress. Breath sounds normal. Abdomen: Soft and nontender. +BS x4 Skin: Skin warm and dry. Normal skin color. Normal skin turgor. No rashes. Extremities: 1+ lower extremity edema. No joint swelling. Status post TMA on the left and multiple toe amputations on the right Neuro/psych: Oriented X 3. No motor deficit. + sensory deficit to B/L LE. CN II-XII intact. Normal speech. Denies suicidal thoughts. Moves all extremities spontaneously. Medications Administered Discontinued Medications Generic Name Dose Route Start Last Admin Trade Name Brandon PRN Reason Stop Dose Admin Aspirin 325 mg 06/24/23 15:43 06/24/23 15:57 Aspirin 325 Mg Tablet PO 06/24/23 15:44 325 mg ONCE ONE Administration Carvedilol 12.5 mg 06/24/23 14:45 06/24/23 15:03 Carvedilol 12.5 Mg Tablet PO 06/24/23 14:46 12.5 mg ONCE ONE Administration Protocol Hydralazine HCl 50 mg 06/24/23 14:45 06/24/23 15:02 Hydralazine Hcl 50 Mg Tablet PO 06/24/23 14:46 50 mg ONCE ONE Administration Protocol Isosorbide Mononitrate 30 mg 06/24/23 14:45 06/24/23 15:03 Isosorbide Mononitrate 30 Mg Tab.Er.24h PO 06/24/23 14:46 30 mg ONCE ONE Administration Protocol Ondansetron HCl 4 mg 06/24/23 15:58 06/24/23 16:03 Ondansetron Hcl 4 Mg/2 Ml Vial IVPUSH 06/24/23 15:59 4 mg ONCE ONE Administration Sodium Zirconium Cyclosilicate 10 gm 06/24/23 15:43 06/24/23 15:57 Sodium Zirconium Cyclosilicate 10 Gm Powd.Pack PO 06/24/23 15:44 10 gm ONCE ONE Administration Medical Decision Making Medical Decision Making MDM Narrative: 32-year-old [place]ian-speaking female with a history of ESRD on dialysis, DM, HTN, gastroparesis, seizure disorder, blindness, asthma, HFeEF (40%), chronic left foot ulcer, multiple toe amputations, history of pericarditis with recent admission to [facility] for hypertensive urgency, noncompliance with dialysis who presents to the ER for evaluation of altered mental status. Arrival to the ER mental status is at baseline. No evidence of seizure activity. Patient's blood pressure is 190/110 which she was just here with hypertensive urgency. She did not take her oral medications this morning. She is complaining of all-over body pain. She is asking for Dilaudid. Ordered for her oral Coreg, hydralazine, and isosorbide. 15:00 critical result of a troponin of 1351. EKG without any ischemic changes, compared to prior there is no new changes from last week. She has a known right bundle branch block. Cardiology was consulted 15:40 case d/w Dr. Cotton NOT recommending heparinization at this time. recommending trending of the troponin which has been ordered. nephrology consulted for dialysis in the morning. Lokelma ordered per recommendations. Patient's blood pressure improved after oral meds. Plan for admission for further monitoring and treatment. Differential Diagnosis Differential Diagnoses: The differential diagnosis associated with the presentation includes Hypertensive urgency, hypertensive emergency, NSTEMI, uremia, metabolic encephalopathy, toxic encephalopathy, pericarditis, myocarditis, ACS Admission/Observation Consideration of admission/observation: Escalation of care including admission/observation considered Consult Healthcare Provider Management of the patient was discussed with: Hospitalist and [employer] Of [employer] Dr. Carver - planning for dialysis in the morning Lab Data MDM Lab Attestation statement: I reviewed the patient's lab results. 06/24/23 14:45 06/24/23 14:46 Labs: Lab Results 06/24/23 06/24/23 06/24/23 Range/Units 14:45 14:46 14:47 WBC 3.3 L (4.8-10.8) X10*3/uL RBC 2.86 L (4.20-5.50) X10*6/uL Hgb 8.7 L (12.0-16.0) g/dl Hct 26.7 L (37.0-47.0) % MCV 93.4 (80.0-98.0) fL MCH 30.4 (27.0-33.0) pg MCHC 32.6 (31.0-35.0) g/dl RDW 16.0 (11.0-16.0) % Plt Count 98 L (160-400) X10*3/uL MPV 12.2 (9.4-12.3) fL Immature Gran % (Auto) 0.3 (0.0-0.4) % Neut % (Auto) 64.1 (45-73) % Lymph % (Auto) 16.9 L (20-40) % [place] % (Auto) 13.2 H (2-11) % Eos % (Auto) 4.6 H (0-4) % Baso % (Auto) 0.9 (0-2) % Lymph # (Auto) 0.6 L (1.2-4.9) X10*3/uL [place] # (Auto) 0.4 (0.1-1.2) X10*3/uL Eos # (Auto) 0.2 (0.0-0.4) X10*3/uL Baso # (Auto) 0.0 (0.0-0.2) X10*3/uL Abs Immat Gran (auto) 0.01 (0.00-0.03) X10*3/uL Absolute Neuts (auto) 2.1 (2.0-8.3) x10*3/uL Absolute Nucleated RBC 0.000 (0.0-0.012) X10*3/uL Nucleated RBC % (auto) 0.0 (0.0-0.2) /100WBC VBG pH 7.37 (7.32-7.43) VBG pCO2 29 mmHg VBG pO2 102 mmHg VBG HCO3 17 L (22-26) mmol/L VBG O2 Saturation 98.0 % VBG Base Excess -6.5 mmol/L Sodium 136 (135-145) mmol/L Potassium 5.2 H (3.3-5.1) mmol/L Chloride 106 (96-108) mmol/L Carbon Dioxide 17 L (22-29) mmol/L Anion Gap 18 (12-20) BUN 85 H (9-16) mg/dL Creatinine 7.48 H* (0.5-1.4) mg/dL Estim Creat Clear Calc 11.2 Estimated GFR 6 POC Glucose (60-115) mg/dL Random Glucose 87 (60-115) mg/dL Calcium 8.9 D (8.4-10.2) mg/dL Phosphorus 6.8 H (2.7-4.5) mg/dL Magnesium 2.5 (1.6-2.6) mg/dL Total Bilirubin 1.3 H (0.0-1.0) mg/dL Direct Bilirubin 0.8 H (0.0-0.5) mg/dL AST 21 (5-31) U/L ALT 16 (0-31) U/L Alkaline Phosphatase 145 H (39-117) U/L Troponin I High Sens 1351.3 H* D (<3.5-17.0) ng/L Total Protein 7.9 (6.5-8.0) g/dL Albumin 3.4 L (3.5-5.0) g/dL Influenza Type A (PCR) (Negative) Influenza Type B (PCR) (Negative) RSV RNA Qual (PCR) (Negative) SARS-CoV-2 RNA (RT-PCR) (Negative) 06/24/23 06/24/23 Range/Units 15:22 15:24 WBC (4.8-10.8) X10*3/uL RBC (4.20-5.50) X10*6/uL Hgb (12.0-16.0) g/dl Hct (37.0-47.0) % MCV (80.0-98.0) fL MCH (27.0-33.0) pg MCHC (31.0-35.0) g/dl RDW (11.0-16.0) % Plt Count (160-400) X10*3/uL MPV (9.4-12.3) fL Immature Gran % (Auto) (0.0-0.4) % Neut % (Auto) (45-73) % Lymph % (Auto) (20-40) % [place] % (Auto) (2-11) % Eos % (Auto) (0-4) % Baso % (Auto) (0-2) % Lymph # (Auto) (1.2-4.9) X10*3/uL [place] # (Auto) (0.1-1.2) X10*3/uL Eos # (Auto) (0.0-0.4) X10*3/uL Baso # (Auto) (0.0-0.2) X10*3/uL Abs Immat Gran (auto) (0.00-0.03) X10*3/uL Absolute Neuts (auto) (2.0-8.3) x10*3/uL Absolute Nucleated RBC (0.0-0.012) X10*3/uL Nucleated RBC % (auto) (0.0-0.2) /100WBC VBG pH (7.32-7.43) VBG pCO2 mmHg VBG pO2 mmHg VBG HCO3 (22-26) mmol/L VBG O2 Saturation % VBG Base Excess mmol/L Sodium (135-145) mmol/L Potassium (3.3-5.1) mmol/L Chloride (96-108) mmol/L Carbon Dioxide (22-29) mmol/L Anion Gap (12-20) BUN (9-16) mg/dL Creatinine (0.5-1.4) mg/dL Estim Creat Clear Calc Estimated GFR POC Glucose 88 (60-115) mg/dL Random Glucose (60-115) mg/dL Calcium (8.4-10.2) mg/dL Phosphorus (2.7-4.5) mg/dL Magnesium (1.6-2.6) mg/dL Total Bilirubin (0.0-1.0) mg/dL Direct Bilirubin (0.0-0.5) mg/dL AST (5-31) U/L ALT (0-31) U/L Alkaline Phosphatase (39-117) U/L Troponin I High Sens (<3.5-17.0) ng/L Total Protein (6.5-8.0) g/dL Albumin (3.5-5.0) g/dL Influenza Type A (PCR) NEGATIVE (Negative) Influenza Type B (PCR) NEGATIVE (Negative) RSV RNA Qual (PCR) NEGATIVE (Negative) SARS-CoV-2 RNA (RT-PCR) NEGATIVE (Negative) Independent Interpretation I performed an independent interpretation of an: EKG and Plain X-Ray Interpretation: EKG with normal sinus rhythm, ventricular rate 76 beats per minute, right bundle-branch block present, prolonged QTC, no ST segment elevations, no peaked T-waves CXR w/ cardiomegaly, trialysis in right chest Radiology Impression Discussion of test interpretation with radiology: I have reviewed the radiologist's reading. Independent Historian Clinical information obtained from an independent historian. History obtained from or confirmed by: EMS External Record Review External record reviewed: Inpatient record, Outpatient record, Prior outpatient labs and Prior outpatient radiology Tests considered The following testing was considered but not selected: CT head was considered however mental status improved Prescription Management I considered prescription management with: Pain Medication and Other (Antihypertensive) Chronic Conditions Patient?s care impacted by: Diabetes, Hypertension and Other (End-stage renal disease) Social Determinants Patient?s care significantly limited by Social Determinants of Health including: Problems related to primary support group and Other Social Determinant of Health Critical Care Time Critical Care Time Critical Care Time: Yes Total Critical Care Time: 49 Attestation: I have personally provided critical care time exclusive of time spent on separately billable procedures. Time includes review of lab data, radiology results, discussion with consultants, and monitoring for potential decompensation. Intervention performed as documented. Discharge Plan Discharge Clinical Impression: Hypertensive urgency, Elevated troponin, Non-compliance with renal dialysis Patient Disposition: Admitted As Inpatient Print Language: Tuvaluan
[2023-06-24 14:15] VITALS: BP 189/102; BP 195/105; PULSE 77; PULSE 79; RESP 17; TEMP 36.5; O2SAT 100; BMI 30.2
[2023-06-24 14:35] VITALS: BP 193/114; PULSE 76; RESP 17; TEMP 36.4; O2SAT 95
[2023-06-24 14:50] LABS: MANUAL DIFF FLAG NO
[2023-06-24 14:54] LABS: Venous Blood Gas Refer to POC result
[2023-06-24 14:55] LABS: VBG Base Excess -6.5 mmol/L; VBG HCO3 17 mmol/L (22-26); VBG pCO2 29 mmHg; VBG pH 7.37 (7.32-7.43); VBG pO2 102 mmHg
--- NOTE | 2023-06-24 14:57 | PC.NURSE ---
PT HAS DIALYSIS CATH TO R SIDE OF CHEST.
[2023-06-24 14:58] LABS: Basophils Percent Auto 0.9 % (0-2); Eosinophils Absolute Auto 0.2 X10*3/uL (0.0-0.4); Eosinophils Percent Auto 4.6 % (0-4); Hematocrit 26.7 % (37.0-47.0); Hemoglobin 8.7 g/dl (12.0-16.0); Imm Gran Abs Auto 0.01 X10*3/uL (0.00-0.03); Imm Gran Pct Auto 0.3 % (0.0-0.4); Lymphocytes Absolute Auto 0.6 X10*3/uL (1.2-4.9); Lymphocytes Percent Auto 16.9 % (20-40); Mean Corpuscular HGB Conc 32.6 g/dl (31.0-35.0); Mean Corpuscular Hemoglobin 30.4 pg (27.0-33.0); Mean Corpuscular Volume 93.4 fL (80.0-98.0); Mean Platelet Volume 12.2 fL (9.4-12.3); Monocytes Absolute Auto 0.4 X10*3/uL (0.1-1.2); Monocytes Percent Auto 13.2 % (2-11); Neutrophils Absolute Auto 2.1 x10*3/uL (2.0-8.3); Neutrophils Percent Auto 64.1 % (45-73); Red Blood Count 2.86 X10*6/uL (4.20-5.50); White Blood Count 3.3 X10*3/uL (4.8-10.8)
[2023-06-24 14:59] LABS: Platelet Count 98 X10*3/uL (160-400)
[2023-06-24] MEDS: hydrALAZINE HCl 50 MG TABLET PO (15:02)
[2023-06-24] MEDS: Isosorbide Mononitrate 30 MG TAB.ER.24H PO (15:03)
[2023-06-24] MEDS: carvediloL 12.5 MG TABLET PO (15:03)
[2023-06-24 15:14] LABS: Alanine Aminotransferase 16 U/L (0-31); Albumin Level 3.4 g/dL (3.5-5.0); Alkaline Phosphatase 145 U/L (39-117); Anion Gap 18 (12-20); Aspartate Amino Transferase 21 U/L (5-31); Bilirubin Direct 0.8 mg/dL (0.0-0.5); Bilirubin Total 1.3 mg/dL (0.0-1.0); Blood Urea Nitrogen 85 mg/dL (9-16); Calcium 8.9 mg/dL (8.4-10.2); Carbon Dioxide 17 mmol/L (22-29); Chloride 106 mmol/L (96-108); Creatinine Clr Calc Pharmacy 11.2; Estimated Glomerular Filt Rate 6; Glucose Random 87 mg/dL (60-115); Magnesium 2.5 mg/dL (1.6-2.6); Phosphorus 6.8 mg/dL (2.7-4.5); Potassium 5.2 mmol/L (3.3-5.1); Sodium 136 mmol/L (135-145); Total Protein 7.9 g/dL (6.5-8.0)
[2023-06-24 15:19] LABS: Troponin-I High Sensitivity 1351.3 ng/L (<3.5-17.0)
[2023-06-24 15:28] LABS: Glucose, Whole Blood 88 mg/dL (60-115)
[2023-06-24 15:59] VITALS: BP 185/102; PULSE 74; RESP 20; TEMP 36.4; O2SAT 94
[2023-06-24] MEDS: ondansetron HCL 4 MG/2 ML VIAL IVPUSH ×2 (16:03→21:22)
[2023-06-24 16:08] LABS: Influenza A PCR NEGATIVE (Negative); Influenza B PCR NEGATIVE (Negative); Resp Syncy Virus RNA Qual PCR NEGATIVE (Negative); SARS COV2 PCR INHOUSE NEGATIVE (Negative)
--- NOTE | 2023-06-24 16:10 | PC.NURSE ---
Patient refusing to take medications until she gets some pain medications. Kasia SIGALA notified
--- NOTE | 2023-06-24 16:59 | PC.NURSE ---
attempted to convince patient the need for medications. Patient does not want any of her medications. Shelly SIGALA in room when she refused again.
--- NOTE | 2023-06-24 17:01 | PHA.MEDREC ---
Pharmacy Consult ? Medication Reconciliation Pharmacy has completed the medication reconciliation. Used discharge summary from previous discharge on 06/19 and med rec done on 06/16.
--- NOTE | 2023-06-24 17:44 | PM.IMHP ---
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 The patient is noncompliant with HD and was last dialyzed 06/19 on day of discharge. On arrival to the ED, pt was responsive, verbal, tearful, crying out in pain. However, at times would be somnolent and not respond. NO fevers chills,sob, chest pain. Reports pain all over her body and is refusing all PO medications including oxycodone. She says she is sick of pills . She is noncompliant with medications at home. On arrival, hypertensive to 195/105, 185/102 on admission. Vitals otherwise stable. She has chronic pancytopenia, and levels consistent with baseline. Creatinine 7.48, BUN 85. Lytes normal except for K 5.2 and CO2 17. VBG reassuring with pH 7.37, pCO2 29, bicarb 17. Initial troponin 1351.3, repeat pending. Negative for influenza, COVID-19, RSV. Chest x-ray shows enlarged cardiac silhouette and bibasilar atelectasis. EKG shows NSR, rate 76 with right bundle branch block, no acute changes from prior EKGs. In the ED, has been ordered for 30 mg isosorbide, 12.5 mg carvedilol, 50 mg hydralazine and oxycodone 5 mg but patient has refused all of these. She has received ondansetron 4 mg. Review of Systems Review of Systems: General: No fevers, malaise, unintentional weight loss HEENT: No blurred vision, diplopia. No sore throat, nasal congestion, rhinorrhea, sinus pain, ear pain Cardiovascular: No chest pain, palpitations, or leg edema Respiratory: No shortness of breath, wheezing, cough GI: No abdominal pain, nausea, vomiting, diarrhea, constipation, melena, hematochezia : No dysuria, hematuria, increased urinary frequency, decreased urinary output MSK: +diffuse pain Neuro: No headaches, weakness, paresthesias Skin: No rashes or lesions [facility] Medical History (Updated 06/24/23 @ 15:44 by JOVON Frank) MDD (major depressive disorder), recurrent episode Anemia Hypertension End-stage renal disease (ESRD) Foot ulcer CKD (chronic kidney disease) Hypertension Diabetic foot Vomiting Renal failure Hypertension Hyperkalemia Metabolic acidosis HFrEF (heart failure with reduced ejection fraction) ESRD on dialysis Migraine Diabetic foot ulcer associated with type 2 diabetes mellitus Chronic pain Gastroparesis Non-compliance with renal dialysis Hypertensive emergency Diabetes ESRD needing dialysis Cardiomyopathy delivery delivered Anemia in chronic kidney disease (CKD) CKD (chronic kidney disease) Headache, migraine Abnormal finding on echocardiogram Elevated troponin Chest pain Acute worsening of stage 3 chronic kidney disease Generalized edema Sepsis Cellulitis Pleural effusion CHF (congestive heart failure) (~06/07/22) Tachycardia Atypical chest pain Bone infection PAD (peripheral artery disease) Severe anemia Cellulitis and abscess of foot DM foot ulcer Osteomyelitis test positive test positive Asthma Depression with anxiety Diabetic retinopathy Type 2 diabetes mellitus with hyperglycemia, with long-term current use of insulin Blind right eye Diabetes Back pain Family History Mother Coronary artery disease Myocardial infarction Stroke Diabetes mellitus Father Myocardial infarction Surgical History 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 Social History Household Members: Family Household Members Other:: sister Housing: House Do you presently have visiting nurse or other home services: No Unable to assess alcohol history related to: Unknown Alcohol intake: never 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 Patient Tobacco Use Status: Never used Tobacco Smoked in Last 30 Days: No e-Cigarette/Vaping Use: Never Used Second Hand Smoke Exposure: No Use of substances other than those prescribed or required for medical reasons: No Advance Directives: Yes Advance Directives on File: Yes Advance Directives Date on File: 03/08/20 Do you have a plan to hurt others: No Plan service: No Current occupational status: unemployed and disabled Gender identity: Female Meds Allergies Allergy/AdvReac Type Severity Reaction Status Date / Time morphine [MORPHINE] Allergy Intermediate Itching Verified 06/24/23 14:18 azithromycin [From Zithromax] Allergy Hives Verified 06/24/23 14:18 gabapentin Allergy Facial Verified 06/24/23 14:18 Swelling tramadol Allergy Facial Verified 06/24/23 14:18 Swelling vancomycin Allergy Anaphylaxis Verified 06/24/23 14:18 Home Medications ?Medication ?Instructions ?Recorded ?Confirmed ?Last Taken ?Type carvedilol 12.5 mg tablet 12.5 mg PO BID 06/05/23 06/24/23 06/16/23 History docusate sodium 100 mg capsule 100 mg PO DAILY PRN constipation 06/05/23 06/24/23 Unknown History hydralazine 100 mg tablet 50 mg PO TID 06/05/23 06/24/23 06/16/23 History isosorbide mononitrate 30 mg 30 mg PO DAILY 06/05/23 06/24/23 06/16/23 History tablet,extended release 24 hr losartan 50 mg tablet 50 mg PO DAILY 06/05/23 06/24/23 06/16/23 History torsemide 20 mg tablet 40 mg PO BID 06/05/23 06/24/23 06/16/23 History levetiracetam 1,000 mg tablet 1,000 mg PO DAILY 06/17/23 06/24/23 06/16/23 History oxycodone 5 mg tablet 5 mg PO TID PRN Pain 06/17/23 06/24/23 Unknown History Physical Exam Vital Signs and Narrative: Vital Signs: Last Vital Signs Temp 97.6 F 06/24/23 15:59 Pulse 74 06/24/23 15:59 Resp 20 06/24/23 15:59 BP 185/102 H 06/24/23 15:59 Pulse Ox 94 06/24/23 15:59 O2 Del Method Room Air 06/24/23 15:59 BMI result Body Mass Index 30.2 Constitutional - Awake and Alert, No apparent distress Cardiovascular - S1S2, RRR, No edema Respiratory - Normal lung expansion, Normal respiratory effort, No respiratory distress, CTA bilaterally Gastrointestinal - NT / ND; +BS; No rebound or guarding Extremities - no calf tenderness bilaterally, no swelling Skin - Warm/Dry. Chronic stage 3 ulcer plantar surface R foot and chronic stage 2 ulcer plantar surface L foot without erythema or warmth Neurological - Alert & oriented x3 Psychological - depressed mood, tearful, histrionic Results Labs 06/24/23 14:45 06/24/23 14:46 Labs: Laboratory Results - last 24 hr 06/24/23 06/24/23 06/24/23 14:45 14:46 14:47 MCV 93.4 MCH 30.4 MCHC 32.6 RDW 16.0 Plt Count 98 L MPV 12.2 Immature Gran % (Auto) 0.3 Neut % (Auto) 64.1 Lymph % (Auto) 16.9 L [place] % (Auto) 13.2 H Eos % (Auto) 4.6 H Baso % (Auto) 0.9 Lymph # (Auto) 0.6 L [place] # (Auto) 0.4 Eos # (Auto) 0.2 Baso # (Auto) 0.0 Abs Immat Gran (auto) 0.01 Absolute Neuts (auto) 2.1 Absolute Nucleated RBC 0.000 Nucleated RBC % (auto) 0.0 VBG pH 7.37 VBG pCO2 29 VBG pO2 102 VBG HCO3 17 L VBG O2 Saturation 98.0 VBG Base Excess -6.5 Anion Gap 18 Estim Creat Clear Calc 11.2 Estimated GFR 6 POC Glucose Random Glucose 87 Calcium 8.9 D Phosphorus 6.8 H Magnesium 2.5 Total Bilirubin 1.3 H Direct Bilirubin 0.8 H AST 21 ALT 16 Alkaline Phosphatase 145 H Troponin I High Sens 1351.3 H* D Total Protein 7.9 Albumin 3.4 L Influenza Type A (PCR) Influenza Type B (PCR) RSV RNA Qual (PCR) SARS-CoV-2 RNA (RT-PCR) 06/24/23 06/24/23 15:22 15:24 MCV MCH MCHC RDW Plt Count MPV Immature Gran % (Auto) Neut % (Auto) Lymph % (Auto) [place] % (Auto) Eos % (Auto) Baso % (Auto) Lymph # (Auto) [place] # (Auto) Eos # (Auto) Baso # (Auto) Abs Immat Gran (auto) Absolute Neuts (auto) Absolute Nucleated RBC Nucleated RBC % (auto) VBG pH VBG pCO2 VBG pO2 VBG HCO3 VBG O2 Saturation VBG Base Excess Anion Gap Estim Creat Clear Calc Estimated GFR POC Glucose 88 Random Glucose Calcium Phosphorus Magnesium Total Bilirubin Direct Bilirubin AST ALT Alkaline Phosphatase Troponin I High Sens Total Protein Albumin Influenza Type A (PCR) NEGATIVE Influenza Type B (PCR) NEGATIVE RSV RNA Qual (PCR) NEGATIVE SARS-CoV-2 RNA (RT-PCR) NEGATIVE Imaging Radiologist's Impressions: Impressions Chest X-Ray 06/24/23 15:12 IMPRESSION: Cardiac silhouette is enlarged, more prominent as compared to previous, probably related to rotated positioning. Suspected bibasilar atelectasis. 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 She is not uremic, no significant lyte abnormality -Creat 6.15, BUN 72. No lyte abnormality except for CO2 17 -follow renal function, lytes #Hypertensive urgency -Ordered for PO hydralazine, 30mg isosorbide, 12.5mg carvediolol (home meds though noncompliant)- refusing -prn hydralazine if SBP >180 -follow bp #Elevated troponin -initial 1300, repeat pending -no chest pain, ekg without acute ischemic changes -possibly r/t uncontrolled htn. Per cardiology, no AC at this time #Chronic pain disorder -allergy to morphine, tramadol, gabapentin -pt with drug seeking tendencies demanding IV dilaudid and IV benadryl -offered oxycodone and refusing. no acute injury #Profound depression -likely contributing to HD refusal and medication refusal. Seen by psych last admission who prescribed mirtazepine but pt noncompliant at home -consider psych reeval and care team consult following hd # chronic bilateral diabetic foot ulcer -wound appears clean/dry without evidence of acute infection -pyridine recovery operator consult # [id number] type 2 diabetes -POC glucose, diabetic diet -Humalog on sliding scale #HFrEF with chronic hypoxemic respiratory failure -Resume HD as above for management of volume -continue po diuretics -continue 4 L supplemental O2, home dose #CAD/Cardiomyopathy -continue ASA, beta-mohamud, isosorbide # diabetic polyneuropathy -continue home pain medications DVT prophylaxis-heparin Full code Patient requires inpatient stay at least 2 midnights for management acute metabolic encephalopathy of unclear etiology with uncontrolled hypertensive urgency requiring IV antihypertensive agents, resumption of dialysis and expert consultation Quality Stroke Does the patient have a stroke diagnosis?: No VTE Prior VTE?: No VTE Risk Level:: Medical - moderate - high VTE Device Contraindication: Treatment Not Indicated VTE Drug Contraindication: N/A - Med Ordered
--- NOTE | 2023-06-24 18:57 | MHC.EDTECH ---
patient refused the blood bertin( the trop)
[2023-06-24 19:18] LABS: Troponin-I High Sensitivity 1122.6 ng/L (<3.5-17.0)
--- NOTE | 2023-06-24 20:30 | PC.NURSE ---
Dr. graves notified patient keeps refusing medications. states she's having 10/10 but refuses oxycodone states it won't help. Patient has a right chest permacath for dialysis. Patient states she hates her life. tele: sinus rythym. Gave crackers and saltine crackers. Will continue with plan of care.
--- NOTE | 2023-06-24 21:26 | PM.EVENT ---
Event Note Date of Service: 06/24/23 Event Note: Patient with 10/10 chest pain radiating to the whole body. Will repeat troponin and EKG. Vitals okay Time Spent With Patient Time: Total time managing care of this patient today ____ minutes.
--- NOTE | 2023-06-24 21:26 | PC.NURSE ---
Dr. Sewell Notified patient c/o chest pain, sob radiating all over her body 12/05. Patient refused all medications by mouth states she's nauseas. Gave patient zofran iv push. Asked her if she was going to take any of her medications by mouth states she wants something for pain offered her oxycodone and tylenol she refused wants something IV. Went in to do EKG, and troponin and blood sugar. Patient states she wants to be left alone. She doesn't want us to touch her. Patient states she needs her oxygen Donato notified states she doesn't need it. tele: sinus rythym 70's. Will attempt to give medications later. Calvin continue with plan of care.
--- NOTE | 2023-06-24 21:27 | MHC.EDTECH ---
patient refused POC and EKG KIRIT Beyer aware.
[2023-06-24 21:32] VITALS: BP 180/97; PULSE 72; RESP 18; O2SAT 100
[2023-06-24 23:09] VITALS: RESP 16
[2023-06-24] MEDS: HYDROmorphone HCl 0.5 MG/0.5 ML SYRINGE IVPUSH (23:09)
[2023-06-24 23:16] VITALS: BP 161/92; PULSE 72; RESP 14; O2SAT 94
[2023-06-25] VITALS (7 sets, daily range): BP systolic 102–195; BP diastolic 53–95; PULSE 63–70; RESP 12–20; TEMP 36.3–36.6; O2SAT 95–100
[2023-06-25] MEDS: ondansetron HCL 4 MG/2 ML VIAL IVPUSH (03:30)
[2023-06-25] MEDS: Torsemide 20 MG TABLET 40 MG PO (08:28)
[2023-06-25] MEDS: NIFEdipine ER 90 MG TAB.ER.24 PO (08:28)
[2023-06-25] MEDS: hydrALAZINE HCl 50 MG TABLET PO (08:28)
[2023-06-25] MEDS: levETIRAcetam 1,000 MG TABLET 1000 MG PO (08:28)
[2023-06-25] MEDS: Isosorbide Mononitrate 30 MG TAB.ER.24H PO (08:28)
[2023-06-25] MEDS: Doxycycline Monohydrate 100 MG CAPSULE PO (08:28)
[2023-06-25] MEDS: oxyCODONE HCl Immed Release 5 MG TABLET PO (08:39)
[2023-06-25] MEDS: Acetaminophen 325 MG TABLET 650 MG PO (08:39)
--- NOTE | 2023-06-25 08:44 | PC.NURSE ---
am po medications were crushed and placed in applesauce to ease swallowing for patient. after 2nd bit patient refused any additional.
[2023-06-25] MEDS: 0.9 % Sodium Chloride Flush 3 ML SYRINGE IVFLUSH ×2 (08:46→21:14)
--- NOTE | 2023-06-25 08:47 | PM.CNCAR ---
History of Present Illness History of Present Illness Date of Service: 06/25/23 Chief complaint: esrd on hd, hypertensive urgency elevated troponin Narrative: This is a cardiology consultation regarding elevated troponins. Very noncompliant patient with many comorbidities. History of ESRD on hemodialysis. Supposedly Sunday//Sunday but she does not like to go on Saturdays. Last week, she states she did not even have dialysis on either and hence nothing in the last week according to her. Many comorbidities including diabetes, legal blindness, diabetic foot ulcers/poorly controlled hypertension due to noncompliance, cardiomyopathy, recurrent hospitalizations. Current admission is because of altered mental status, lethargy and confusion. When I evaluated her today, she is essentially crying continuously. She states that her entire body is hurting from head to toe. No clear chest pain. Blood pressure is quite high. Review of Systems Review of Systems: Yes all other systems are reviewed and are negative Constitutional: Constitutional: Reports as per HPI, Reports no additional constitutional complaints, Reports fatigue, Reports lethargy and Reports poor appetite Eyes: Eyes: Reports as per HPI and Denies no additional eye complaints ENT: Denies system reviewed and no additional complaints, except as documented and Reports as per HPI Cardiovascular: Cardiovascular: Reports as per HPI, Reports no additional cardiovascular complaints, Denies acrocyanosis, Denies cool extremities, Denies chest pain, Denies leg edema, Denies lightheadedness, Denies palpitations and Denies dyspnea Respiratory: Respiratory: Reports as per HPI, Denies no additional respiratory complaints and Denies dyspnea Gastrointestinal: Gastrointestinal: Reports as per HPI and Denies no additional gastrointestinal complaints Genitourinary: Genitourinary: Reports as per HPI Musculoskeletal: Musculoskeletal: Reports no additional musculoskeletal complaints and Reports as per HPI Integumentary/Breasts: Skin/Breast: Reports system reviewed and no additional complaints, except as docu Neurologic: Reports system reviewed and no additional complaints, except as documented and Reports as per HPI Psychiatric: Psychiatric: Reports no additional psychiatric complaints and Reports as per HPI Endocrine: Endocrine: Reports no additional endocrine complaints, Reports as per HPI, Reports fatigue and Denies palpitations Hematologic/Lymphatic: Hematologic/Lymphatic: Reports no additional hematologic/lymphatic complaints and Reports as per HPI Allergic/Immunologic: Allergic/Immunologic: Reports no additional allergic/immunologic complaints and Reports as per HPI COUNTS INCLUDE 234 BEDS AT THE [facility] Past Medical History Medical History (Updated 06/24/23 @ 15:44 by JOVON Frank) MDD (major depressive disorder), recurrent episode Anemia Hypertension End-stage renal disease (ESRD) Foot ulcer CKD (chronic kidney disease) Hypertension Diabetic foot Vomiting Renal failure Hypertension Hyperkalemia Metabolic acidosis HFrEF (heart failure with reduced ejection fraction) ESRD on dialysis Migraine Diabetic foot ulcer associated with type 2 diabetes mellitus Chronic pain Gastroparesis Non-compliance with renal dialysis Hypertensive emergency Diabetes ESRD needing dialysis Cardiomyopathy delivery delivered Anemia in chronic kidney disease (CKD) CKD (chronic kidney disease) Headache, migraine Abnormal finding on echocardiogram Elevated troponin Chest pain Acute worsening of stage 3 chronic kidney disease Generalized edema Sepsis Cellulitis Pleural effusion CHF (congestive heart failure) (~06/07/22) Tachycardia Atypical chest pain Bone infection PAD (peripheral artery disease) Severe anemia Cellulitis and abscess of foot DM foot ulcer Osteomyelitis test positive test positive Asthma Depression with anxiety Diabetic retinopathy Type 2 diabetes mellitus with hyperglycemia, with long-term current use of insulin Blind right eye Diabetes Back pain Family History Family History Mother Coronary artery disease Myocardial infarction Stroke Diabetes mellitus Father Myocardial infarction Surgical History Surgical History 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 Social History Social History Household Members: Family Household Members Other:: sister Housing: Apartment Do you presently have visiting nurse or other home services: Yes Unable to assess alcohol history related to: Unknown Alcohol intake: never 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 Patient Tobacco Use Status: Never used Tobacco Smoked in Last 30 Days: No e-Cigarette/Vaping Use: Never Used Second Hand Smoke Exposure: No Use of substances other than those prescribed or required for medical reasons: No Have you been hit, kicked, punched, or otherwise hurt by someone within the past year? If so, by whom?: No Is there a partner from a previous relationship who is making you feel unsafe now?: No Are you made to feel afraid or neglected: No Advance Directives: Yes Advance Directives on File: Yes Advance Directives Date on File: 03/08/20 Do you have a plan to hurt others: No Plan Nutrition Risks: No Nutritional Risk Patient : No service: No Current occupational status: unemployed and disabled Gender identity: Female Meds Allergies Allergy/AdvReac Type Severity Reaction Status Date / Time morphine [MORPHINE] Allergy Intermediate Itching Verified 06/24/23 14:18 azithromycin [From Zithromax] Allergy Hives Verified 06/24/23 14:18 gabapentin Allergy Facial Verified 06/24/23 14:18 Swelling tramadol Allergy Facial Verified 06/24/23 14:18 Swelling vancomycin Allergy Anaphylaxis Verified 06/24/23 14:18 Active Medications: Current Medications Acetaminophen (Acetaminophen 325 Mg Tablet) 650 mg PO Q6H PRN PRN Reason: Pain, Mild (Pain Scale 1-3) Last Admin: 06/25/23 08:39 Dose: 650 mg Carvedilol (Carvedilol 12.5 Mg Tablet) 12.5 mg PO BID [facility]; Protocol Last Admin: 06/24/23 22:42 Dose: Not Given Docusate Sodium (Docusate Sodium 100 Mg Capsule) 100 mg PO DAILY PRN PRN Reason: constipation Doxycycline Monohydrate (Doxycycline Monohydrate 100 Mg Capsule) 100 mg PO BID [facility] Last Admin: 06/25/23 08:28 Dose: 100 mg Glucose (Glucose Gel 15 Gm Gel..Gram.) 15 gm PO Q15M PRN; Protocol PRN Reason: per Hypoglycemia Standing Ord. Heparin Sodium (Porcine) (Heparin Sodium,Porcine 5,000 Unit/Ml Vial) 5,000 unit SUBCUT Q12H [facility] Last Admin: 06/25/23 05:05 Dose: Not Given Hydralazine HCl (Hydralazine Hcl 20 Mg/Ml Vial) 10 mg IVPUSH Q6H PRN; Protocol PRN Reason: SBP > 180 Hydralazine HCl (Hydralazine Hcl 50 Mg Tablet) 50 mg PO TID [facility]; Protocol Last Admin: 06/25/23 08:28 Dose: 50 mg Dextrose (D10) 250 mls @ 750 mls/hr IV Q15M PRN; Protocol PRN Reason: per Hypoglycemia Standing Ord. Insulin Human Lispro (Insulin Lispro 100 Unit/Ml 3 Ml Vial) 0 unit SUBCUT QIDACHS [facility]; Protocol Last Admin: 06/25/23 08:33 Dose: Not Given Isosorbide Mononitrate (Isosorbide Mononitrate 30 Mg Tab.Er.24h) 30 mg PO DAILY [facility]; Protocol Last Admin: 06/25/23 08:28 Dose: 30 mg Levetiracetam (Levetiracetam 1,000 Mg Tablet) 1,000 mg PO DAILY [facility] Last Admin: 06/25/23 08:28 Dose: 1,000 mg Losartan Potassium (Losartan Potassium 50 Mg Tablet) 50 mg PO DAILY [facility]; Protocol Mirtazapine (Mirtazapine 7.5 Mg Tablet) 7.5 mg PO BEDTIME [facility] Last Admin: 06/24/23 22:43 Dose: Not Given Nifedipine (Nifedipine Er 90 Mg Tab.Er.24) 90 mg PO DAILY [facility]; Protocol Last Admin: 06/25/23 08:28 Dose: 90 mg Ondansetron HCl (Ondansetron Hcl 4 Mg/2 Ml Vial) 4 mg IVPUSH Q8H PRN PRN Reason: Nausea and Vomiting Last Admin: 06/25/23 03:30 Dose: 4 mg Oxycodone HCl (Oxycodone Hcl Immed Release 5 Mg Tablet) 5 mg PO TID PRN PRN Reason: Pain, Severe (Pain Scale 7-10) Last Admin: 06/25/23 08:39 Dose: 5 mg Senna (Sennosides 8.6 Mg Tablet) 17.2 mg PO BEDTIME PRN PRN Reason: Constipation Sodium Chloride (0.9 % Sodium Chloride Flush 3 Ml Syringe) [facility] Last Admin: 06/25/23 08:46 Dose: 3 ml Torsemide (Torsemide 20 Mg Tablet) 40 mg PO BID [facility]; Protocol Last Admin: 06/25/23 08:28 Dose: 40 mg Home Medications ?Medication ?Instructions ?Recorded ?Confirmed ?Last Taken ?Type carvedilol 12.5 mg tablet 12.5 mg PO BID 06/05/23 06/24/23 06/16/23 History docusate sodium 100 mg capsule 100 mg PO DAILY PRN constipation 06/05/23 06/24/23 Unknown History hydralazine 100 mg tablet 50 mg PO TID 06/05/23 06/24/23 06/16/23 History isosorbide mononitrate 30 mg 30 mg PO DAILY 06/05/23 06/24/23 06/16/23 History tablet,extended release 24 hr losartan 50 mg tablet 50 mg PO DAILY 06/05/23 06/24/23 06/16/23 History torsemide 20 mg tablet 40 mg PO BID 06/05/23 06/24/23 06/16/23 History levetiracetam 1,000 mg tablet 1,000 mg PO DAILY 06/17/23 06/24/23 06/16/23 History oxycodone 5 mg tablet 5 mg PO TID PRN Pain 06/17/23 06/24/23 Unknown History Physical Exam Vital Signs: Vital Signs: Last Vital Signs Temp 97.8 F 06/25/23 07:30 Pulse 67 06/25/23 07:30 Resp 20 06/25/23 07:30 BP 195/95 H 06/25/23 07:30 Pulse Ox 98 06/25/23 07:30 O2 Del Method Room Air 06/25/23 07:30 BMI result Body Mass Index 30.2 Const: General: comfortable and in distress (Complaints of pain all over; tearful) Orientation/consciousness: patient oriented x3 HEENT: Other: Unremarkable Head: Yes normal to inspection Neck: Neck: Yes normal visual inspection Chest: Chest palpation & inspection: normal inspection of the chest Resp: Auscultation: clear to auscultation bilaterally Cardio: Palpation: normal PMI Heart sounds: S1 normal heart sound present, S2 normal heart sound present, no gallops, no murmurs and no rubs GI: Palpation (GI): Soft to palpation Back/Spine/Pelvis: Other: unremarkable Skin: General skin exam: no rashes or lesions noted Neuro: General: patient oriented x3 Extrem: General: Yes normal to inspection Psych: Mental Status: mental status grossly normal Objective Labs and Meds 06/24/23 14:45 06/24/23 14:46 Lab results: Laboratory Results - last 24 hr 06/24/23 06/24/23 06/24/23 14:45 14:46 14:47 WBC 3.3 L RBC 2.86 L Hgb 8.7 L Hct 26.7 L MCV 93.4 MCH 30.4 MCHC 32.6 RDW 16.0 Plt Count 98 L MPV 12.2 Immature Gran % (Auto) 0.3 Neut % (Auto) 64.1 Lymph % (Auto) 16.9 L [place] % (Auto) 13.2 H Eos % (Auto) 4.6 H Baso % (Auto) 0.9 Lymph # (Auto) 0.6 L [place] # (Auto) 0.4 Eos # (Auto) 0.2 Baso # (Auto) 0.0 Abs Immat Gran (auto) 0.01 Absolute Neuts (auto) 2.1 Absolute Nucleated RBC 0.000 Nucleated RBC % (auto) 0.0 VBG pH 7.37 VBG pCO2 29 VBG pO2 102 VBG HCO3 17 L VBG O2 Saturation 98.0 VBG Base Excess -6.5 Sodium 136 Potassium 5.2 H Chloride 106 Carbon Dioxide 17 L Anion Gap 18 BUN 85 H Creatinine 7.48 H* Estim Creat Clear Calc 11.2 Estimated GFR 6 POC Glucose Random Glucose 87 Calcium 8.9 D Phosphorus 6.8 H Magnesium 2.5 Total Bilirubin 1.3 H Direct Bilirubin 0.8 H AST 21 ALT 16 Alkaline Phosphatase 145 H Troponin I High Sens 1351.3 H* D Total Protein 7.9 Albumin 3.4 L Influenza Type A (PCR) Influenza Type B (PCR) RSV RNA Qual (PCR) SARS-CoV-2 RNA (RT-PCR) 06/24/23 06/24/23 06/24/23 15:22 15:24 18:44 WBC RBC Hgb Hct MCV MCH MCHC RDW Plt Count MPV Immature Gran % (Auto) Neut % (Auto) Lymph % (Auto) [place] % (Auto) Eos % (Auto) Baso % (Auto) Lymph # (Auto) [place] # (Auto) Eos # (Auto) Baso # (Auto) Abs Immat Gran (auto) Absolute Neuts (auto) Absolute Nucleated RBC Nucleated RBC % (auto) VBG pH VBG pCO2 VBG pO2 VBG HCO3 VBG O2 Saturation VBG Base Excess Sodium Potassium Chloride Carbon Dioxide Anion Gap BUN Creatinine Estim Creat Clear Calc Estimated GFR POC Glucose 88 Random Glucose Calcium Phosphorus Magnesium Total Bilirubin Direct Bilirubin AST ALT Alkaline Phosphatase Troponin I High Sens 1122.6 H* Total Protein Albumin Influenza Type A (PCR) NEGATIVE Influenza Type B (PCR) NEGATIVE RSV RNA Qual (PCR) NEGATIVE SARS-CoV-2 RNA (RT-PCR) NEGATIVE ECG Interpretation: EKG with normal sinus rhythm at 76/Min; right bundle-branch block pattern; left atrial enlargement. Imaging Radiologist's impression: Impressions Chest X-Ray 06/24/23 15:12 IMPRESSION: Cardiac silhouette is enlarged, more prominent as compared to previous, probably related to rotated positioning. Suspected bibasilar atelectasis. Assessment and Plan (1) NSTEMI (non-ST elevated myocardial infarction): Status: Resolved Plan NSTEMI related to missing dialysis, uncontrolled hypertension, noncompliance. High sensitivity troponin levels are 20, 21, 1351 and 1122. Blood pressure is quite high and currently 195/95 mm Hg. Last echocardiogram with LVEF of 35-40%. Myocardial perfusion imaging study from 2022 reported to have mild ischemia versus artifact in the mid anteroseptal wall. Diaphragmatic attenuation suspected in the inferior wall. LVEF was 39% during stress and 38% during rest. At this time, no specific management for NSTEMI. Highly doubt if anticoagulation would really make much of a change as this is all from poorly controlled hypertension missing dialysis. She does not have any angina and her main symptom is generalized body pain which could be related to the ESRD. Suggest discussing with Nephrology about further steps and timing of dialysis. Short term as well as long-term prognosis guarded because of the many comorbidities. High likelihood of decompensation and . Unfortunately, patient is not in a position to understand any of this. Goals of care will need to be decided. Message sent to Dr. Diane. Procedures Date of Service Date of Service: 06/25/23
--- NOTE | 2023-06-25 08:52 | PC.NURSE ---
patient reports missing dialysis 06/20 and 06/22
--- NOTE | 2023-06-25 09:44 | MHC.CM.PN ---
Patient is Legally Blind and prefers paperwork be addressed with Sister/SUPPORT WORKER/Josy; CM spoke with Josy @ [phone] (original IMM to be mailed to her and a copy has been placed on the chart). Patient lives in an apartment with Josy/SUPPORT WORKER(48 hours/week) and she uses a w/c to assist with mobility. Home.resume HD @ [facility], Home O2 and SUPPORT WORKER is the goal and CM has initiated and will follow for dc planning. PCP is Dr.Mehrunissa Beard.
--- NOTE | 2023-06-25 09:52 | MHC.CM.PN ---
Patient also appears to be active with [facility].
--- NOTE | 2023-06-25 09:52 | HO.WOUND ---
Wound Consult: Initial 32yr old female admitted to [facility] on 06/24/23 - See progress notes and H&P for detailed history. Wound consult placed for Chronic Left and Right Plantar Wound - present on admission. Recent frequent admissions to [facility] - see chart for details last admission 06/17/23 with this sql report writer consulting on 06/18/23. Last admission 06/18/23 Left Plantar Foot Etiology: Chronic - Diabetic Foot wound Wound Bed: dry marbled wound bed with adherent thin white slough red tissue noted Drainage / Odor: no odor noted - no drainage noted - Alginate stuck to wound bed Edges: ? callused Pao wound: Calloused and undermining noted No Induration, No Fluctuance, No Erythema, No Warmth Pain: Denies reports neuropathy Goals of Treatment: Durafiber to allow for autolytic debridement Last Admission 06/18/23 Right Foot todays admission Right Foot Etiology: Diabetic Foot wound Wound Bed: pink moist - tissue after cleansing Drainage / Odor: mild malodor noted - dried drainage noted on dressing adherent to wound bed Edges: ? callused Pao wound: Callused and undermining noted - No Induration, No Fluctuance, No Erythema, No Warmth Pain: Denies reports neuropathy Goals of Treatment: ? Durafiber AG packing Recommend follow up out patient Wound Clinic at [address] [place] [address] and to call for an appointment at time of discharge. [phone].? Recommendations: 1. Turn and Reposition every 2 hours and as needed for patient comfort. 2. Off Load all bony prominences with use of pillows and heel boots as needed. 3. Provide adequate and supplemental nutrition. 4. Maintain blood glucose levels per Providers orders. 5. Right and Left Foot - Cleanse and irrigate with NS, Pat dry. Apply cut to size Durafiber AG to wound bed , cover with dry gauze, ABD pad and gauze wrap. Change every other day. Off Load Pressure. Recommend follow up out patient Wound Clinic at [address] [place] [address] and to call for an appointment at time of discharge. [phone].?
[2023-06-25] MEDS: HYDROmorphone HCl 1 MG/ML SYRINGE 0.6 MG IVPUSH (10:29)
[2023-06-25 11:22] LABS: Basophils Percent Auto 0.8 % (0-2); Eosinophils Absolute Auto 0.1 X10*3/uL (0.0-0.4); Eosinophils Percent Auto 5.5 % (0-4); Hematocrit 23.5 % (37.0-47.0); Hemoglobin 7.6 g/dl (12.0-16.0); Imm Gran Abs Auto 0.01 X10*3/uL (0.00-0.03); Imm Gran Pct Auto 0.4 % (0.0-0.4); Lymphocytes Absolute Auto 0.4 X10*3/uL (1.2-4.9); Lymphocytes Percent Auto 15.3 % (20-40); Mean Corpuscular HGB Conc 32.3 g/dl (31.0-35.0); Mean Corpuscular Hemoglobin 30.3 pg (27.0-33.0); Mean Corpuscular Volume 93.6 fL (80.0-98.0); Mean Platelet Volume 13.3 fL (9.4-12.3); Monocytes Absolute Auto 0.2 X10*3/uL (0.1-1.2); Monocytes Percent Auto 10.2 % (2-11); Neutrophils Absolute Auto 1.6 x10*3/uL (2.0-8.3); Neutrophils Percent Auto 67.8 % (45-73); Red Blood Count 2.51 X10*6/uL (4.20-5.50); Red Cell Distribution Width 16.3 % (11.0-16.0)
[2023-06-25 11:23] LABS: Platelet Count 84 X10*3/uL (160-400); White Blood Count 2.4 X10*3/uL (4.8-10.8)
[2023-06-25 11:37] LABS: Anion Gap 16 (12-20); Blood Urea Nitrogen 82 mg/dL (9-16); Calcium 8.3 mg/dL (8.4-10.2); Carbon Dioxide 20 mmol/L (22-29); Chloride 104 mmol/L (96-108); Creatinine Clr Calc Pharmacy 11.6; Estimated Glomerular Filt Rate 7; Glucose Random 137 mg/dL (60-115); Potassium 4.7 mmol/L (3.3-5.1); Sodium 135 mmol/L (135-145)
--- NOTE | 2023-06-25 12:05 | PM.PNNEP ---
Subjective Subjective Date of Service: 06/25/23 Interval history: Ptfeels better Seen on HD Physical Exam Vital Signs: Vital Signs: Last Vital Signs Temp 97.8 F 06/25/23 07:30 Pulse 67 06/25/23 07:30 Resp 20 06/25/23 07:30 BP 195/95 H 06/25/23 07:30 Pulse Ox 98 06/25/23 07:30 O2 Del Method Room Air 06/25/23 07:30 BMI result Body Mass Index 30.2 Const: General: comfortable and in distress (Complaints of pain all over; tearful) Orientation/consciousness: patient oriented x3 HEENT: Other: Unremarkable Head: Yes normal to inspection Neck: Neck: Yes normal visual inspection Chest: Chest palpation & inspection: normal inspection of the chest Resp: Auscultation: clear to auscultation bilaterally Cardio: Palpation: normal PMI Heart sounds: S1 normal heart sound present, S2 normal heart sound present, no gallops, no murmurs and no rubs GI: Palpation (GI): Soft to palpation Back/Spine/Pelvis: Other: unremarkable Skin: General skin exam: no rashes or lesions noted Neuro: General: patient oriented x3 Extrem: General: Yes normal to inspection Psych: Mental Status: mental status grossly normal Objective Data Labs 06/25/23 11:16 06/25/23 11:16 Labs: Laboratory Results - last 24 hr 06/24/23 06/24/23 06/24/23 14:45 14:46 14:47 WBC 3.3 L RBC 2.86 L Hgb 8.7 L Hct 26.7 L MCV 93.4 MCH 30.4 MCHC 32.6 RDW 16.0 Plt Count 98 L MPV 12.2 Immature Gran % (Auto) 0.3 Neut % (Auto) 64.1 Lymph % (Auto) 16.9 L [place] % (Auto) 13.2 H Eos % (Auto) 4.6 H Baso % (Auto) 0.9 Lymph # (Auto) 0.6 L [place] # (Auto) 0.4 Eos # (Auto) 0.2 Baso # (Auto) 0.0 Abs Immat Gran (auto) 0.01 Absolute Neuts (auto) 2.1 Absolute Nucleated RBC 0.000 Nucleated RBC % (auto) 0.0 VBG pH 7.37 VBG pCO2 29 VBG pO2 102 VBG HCO3 17 L VBG O2 Saturation 98.0 VBG Base Excess -6.5 Sodium 136 Potassium 5.2 H Chloride 106 Carbon Dioxide 17 L Anion Gap 18 BUN 85 H Creatinine 7.48 H* Estim Creat Clear Calc 11.2 Estimated GFR 6 POC Glucose Random Glucose 87 Calcium 8.9 D Phosphorus 6.8 H Magnesium 2.5 Total Bilirubin 1.3 H Direct Bilirubin 0.8 H AST 21 ALT 16 Alkaline Phosphatase 145 H Troponin I High Sens 1351.3 H* D Total Protein 7.9 Albumin 3.4 L Influenza Type A (PCR) Influenza Type B (PCR) RSV RNA Qual (PCR) SARS-CoV-2 RNA (RT-PCR) 06/24/23 06/24/23 06/24/23 15:22 15:24 18:44 WBC RBC Hgb Hct MCV MCH MCHC RDW Plt Count MPV Immature Gran % (Auto) Neut % (Auto) Lymph % (Auto) [place] % (Auto) Eos % (Auto) Baso % (Auto) Lymph # (Auto) [place] # (Auto) Eos # (Auto) Baso # (Auto) Abs Immat Gran (auto) Absolute Neuts (auto) Absolute Nucleated RBC Nucleated RBC % (auto) VBG pH VBG pCO2 VBG pO2 VBG HCO3 VBG O2 Saturation VBG Base Excess Sodium Potassium Chloride Carbon Dioxide Anion Gap BUN Creatinine Estim Creat Clear Calc Estimated GFR POC Glucose 88 Random Glucose Calcium Phosphorus Magnesium Total Bilirubin Direct Bilirubin AST ALT Alkaline Phosphatase Troponin I High Sens 1122.6 H* Total Protein Albumin Influenza Type A (PCR) NEGATIVE Influenza Type B (PCR) NEGATIVE RSV RNA Qual (PCR) NEGATIVE SARS-CoV-2 RNA (RT-PCR) NEGATIVE 06/25/23 11:16 WBC 2.4 L RBC 2.51 L Hgb 7.6 L Hct 23.5 L MCV 93.6 MCH 30.3 MCHC 32.3 RDW 16.3 H Plt Count 84 L MPV 13.3 H Immature Gran % (Auto) 0.4 Neut % (Auto) 67.8 Lymph % (Auto) 15.3 L [place] % (Auto) 10.2 Eos % (Auto) 5.5 H Baso % (Auto) 0.8 Lymph # (Auto) 0.4 L [place] # (Auto) 0.2 Eos # (Auto) 0.1 Baso # (Auto) 0.0 Abs Immat Gran (auto) 0.01 Absolute Neuts (auto) 1.6 L Absolute Nucleated RBC 0.000 Nucleated RBC % (auto) 0.0 VBG pH VBG pCO2 VBG pO2 VBG HCO3 VBG O2 Saturation VBG Base Excess Sodium 135 Potassium 4.7 Chloride 104 Carbon Dioxide 20 L Anion Gap 16 BUN 82 H Creatinine 7.16 H* Estim Creat Clear Calc 11.6 Estimated GFR 7 POC Glucose Random Glucose 137 H Calcium 8.3 L D Phosphorus Magnesium Total Bilirubin Direct Bilirubin AST ALT Alkaline Phosphatase Troponin I High Sens Total Protein Albumin Influenza Type A (PCR) Influenza Type B (PCR) RSV RNA Qual (PCR) SARS-CoV-2 RNA (RT-PCR) Procedures Date of Service Date of Service: 06/25/23 Assessment & Plan Assessment and plan (1) ESRD (end stage renal disease): Status: Acute (2) Hypertensive urgency: Status: Acute (3) Acidosis: Status: Acute Plan Full consultDictated Hd today and in AM TTS schedule Will check FE stores Cardiology f/u Time Spent With Patient Time: Total time managing care of this patient today ____ minutes. Progress Note: Quality Stroke Does the patient have a stroke diagnosis?: No
--- NOTE | 2023-06-25 13:02 | P.CNPS_ITS ---
History of Present Illness Date of Service: 06/25/23 Chief Complaint: esrd on hd, hypertensive urgency elevated troponin Reason for Consult: depression, refusing care Requesting physician: Paul Diane Discussed with referring provider: Yes Sources of Information: patient interviewed and chart reviewed HPI Narrative: pt seen today; she is lying in bedl; hopsital hjohnny; disheveled, curled infetal position suckeing her thumb; she responds to questions; oriented to person, place, time. month day, year. Pt says i don't know when asked about emotions- even with prompting; reports she is in pain and having trouble waiting for pain meds; soft spoken, denies SI or Hi; her eyes roll up in head periodically; pt states her sister helps take care of her at home. Past Psychiatric History: hx of one inpatient psychiatric hospitalization at [facility]. hx of seeing an outpatient psychiatrist and therapist when she was 11 y/o; does not recall medication hx. Medical Evaluation Reviewed: Yes Personal & Social History: lives with older sister who helps care for pt Review of Systems Review of Systems General: No fevers, malaise, unintentional weight loss HEENT: No blurred vision, diplopia. No sore throat, nasal congestion, rhinorrhea, sinus pain, ear pain Cardiovascular: No chest pain, palpitations, or leg edema Respiratory: No shortness of breath, wheezing, cough GI: No abdominal pain, nausea, vomiting, diarrhea, constipation, melena, hematochezia : No dysuria, hematuria, increased urinary frequency, decreased urinary output MSK: +diffuse pain Neuro: No headaches, weakness, paresthesias Skin: No rashes or lesions Yes all other systems are reviewed and are negative Constitutional: Reports as per HPI, Reports no additional constitutional complaints, Reports fatigue, Reports lethargy and Reports poor appetite Eyes: Reports as per HPI and Denies no additional eye complaints Denies system reviewed and no additional complaints, except as documented and Reports as per HPI Cardiovascular: Reports as per HPI, Reports no additional cardiovascular complaints, Denies acrocyanosis, Denies cool extremities, Denies chest pain, Denies leg edema, Denies lightheadedness, Denies palpitations and Denies dyspnea Respiratory: Reports as per HPI, Denies no additional respiratory complaints and Denies dyspnea Gastrointestinal: Reports as per HPI and Denies no additional gastrointestinal complaints Musculoskeletal: Reports no additional musculoskeletal complaints and Reports as per HPI Skin/Breast: Reports system reviewed and no additional complaints, except as docu Reports system reviewed and no additional complaints, except as documented and Reports as per HPI Psychiatric: Reports no additional psychiatric complaints and Reports as per HPI Endocrine: Reports no additional endocrine complaints, Reports as per HPI, Reports fatigue and Denies palpitations Hematologic/Lymphatic: Reports no additional hematologic/lymphatic complaints and Reports as per HPI Allergic/Immunologic: Reports no additional allergic/immunologic complaints and Reports as per HPI [facility] Medical History (Updated 06/25/23 @ 16:56 by Sonia Falk APRN) ESRD (end stage renal disease) MDD (major depressive disorder), recurrent episode Anemia Hypertension End-stage renal disease (ESRD) Foot ulcer CKD (chronic kidney disease) Hypertension Diabetic foot Vomiting Renal failure Hypertension Hyperkalemia Metabolic acidosis HFrEF (heart failure with reduced ejection fraction) ESRD on dialysis Migraine Diabetic foot ulcer associated with type 2 diabetes mellitus Chronic pain Gastroparesis Non-compliance with renal dialysis Hypertensive emergency Diabetes ESRD needing dialysis Cardiomyopathy delivery delivered Anemia in chronic kidney disease (CKD) CKD (chronic kidney disease) Headache, migraine Abnormal finding on echocardiogram Elevated troponin Chest pain Acute worsening of stage 3 chronic kidney disease Generalized edema Sepsis Cellulitis Pleural effusion CHF (congestive heart failure) (~06/07/22) Tachycardia Atypical chest pain Bone infection PAD (peripheral artery disease) Severe anemia Cellulitis and abscess of foot DM foot ulcer Osteomyelitis test positive test positive Asthma Depression with anxiety Diabetic retinopathy Type 2 diabetes mellitus with hyperglycemia, with long-term current use of insulin Blind right eye Diabetes Back pain Surgical History 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 Family History: unknown Social History: Lives with her sister, single, 2 children(13 and 11 y/o; live with their father in [place]), disability Trauma History: yes Diagnostics Vital Signs (24Hr): Vital Signs - 24 hr 06/24/23 14:15 06/24/23 14:35 06/24/23 15:59 Temperature 97.7 F 97.6 F 97.6 F Pulse Rate 79 76 74 Respiratory Rate 17 17 20 Blood Pressure 195/105 H 193/114 H 185/102 H Pulse Oximetry 100 95 94 Oxygen Delivery Method Room Air Room Air Room Air 06/24/23 21:32 06/24/23 23:09 06/24/23 23:16 Temperature Pulse Rate 72 72 Respiratory Rate 18 16 14 Blood Pressure 180/97 H 161/92 H Pulse Oximetry 100 94 Oxygen Delivery Method Room Air Room Air 06/25/23 02:40 06/25/23 03:03 06/25/23 07:30 Temperature 97.5 F 97.3 F 97.8 F Pulse Rate 70 66 67 Respiratory Rate 12 18 20 Blood Pressure 156/86 H 180/95 H 195/95 H Pulse Oximetry 97 98 98 Oxygen Delivery Method Room Air Room Air Room Air BMI result Body Mass Index 30.2 Labs 06/25/23 11:16 06/25/23 11:16 Labs: Laboratory Results - last 48 hr 06/24/23 06/24/23 06/24/23 14:45 14:46 14:47 WBC 3.3 L RBC 2.86 L Hgb 8.7 L Hct 26.7 L MCV 93.4 MCH 30.4 MCHC 32.6 RDW 16.0 Plt Count 98 L MPV 12.2 Immature Gran % (Auto) 0.3 Neut % (Auto) 64.1 Lymph % (Auto) 16.9 L [place] % (Auto) 13.2 H Eos % (Auto) 4.6 H Baso % (Auto) 0.9 Lymph # (Auto) 0.6 L [place] # (Auto) 0.4 Eos # (Auto) 0.2 Baso # (Auto) 0.0 Abs Immat Gran (auto) 0.01 Absolute Neuts (auto) 2.1 Absolute Nucleated RBC 0.000 Nucleated RBC % (auto) 0.0 VBG pH 7.37 VBG pCO2 29 VBG pO2 102 VBG HCO3 17 L VBG O2 Saturation 98.0 VBG Base Excess -6.5 Sodium 136 Potassium 5.2 H Chloride 106 Carbon Dioxide 17 L Anion Gap 18 BUN 85 H Creatinine 7.48 H* Estim Creat Clear Calc 11.2 Estimated GFR 6 POC Glucose Random Glucose 87 Calcium 8.9 D Phosphorus 6.8 H Magnesium 2.5 Total Bilirubin 1.3 H Direct Bilirubin 0.8 H AST 21 ALT 16 Alkaline Phosphatase 145 H Troponin I High Sens 1351.3 H* D Total Protein 7.9 Albumin 3.4 L Influenza Type A (PCR) Influenza Type B (PCR) RSV RNA Qual (PCR) SARS-CoV-2 RNA (RT-PCR) 06/24/23 06/24/23 06/24/23 15:22 15:24 18:44 WBC RBC Hgb Hct MCV MCH MCHC RDW Plt Count MPV Immature Gran % (Auto) Neut % (Auto) Lymph % (Auto) [place] % (Auto) Eos % (Auto) Baso % (Auto) Lymph # (Auto) [place] # (Auto) Eos # (Auto) Baso # (Auto) Abs Immat Gran (auto) Absolute Neuts (auto) Absolute Nucleated RBC Nucleated RBC % (auto) VBG pH VBG pCO2 VBG pO2 VBG HCO3 VBG O2 Saturation VBG Base Excess Sodium Potassium Chloride Carbon Dioxide Anion Gap BUN Creatinine Estim Creat Clear Calc Estimated GFR POC Glucose 88 Random Glucose Calcium Phosphorus Magnesium Total Bilirubin Direct Bilirubin AST ALT Alkaline Phosphatase Troponin I High Sens 1122.6 H* Total Protein Albumin Influenza Type A (PCR) NEGATIVE Influenza Type B (PCR) NEGATIVE RSV RNA Qual (PCR) NEGATIVE SARS-CoV-2 RNA (RT-PCR) NEGATIVE 06/25/23 11:16 WBC 2.4 L RBC 2.51 L Hgb 7.6 L Hct 23.5 L MCV 93.6 MCH 30.3 MCHC 32.3 RDW 16.3 H Plt Count 84 L MPV 13.3 H Immature Gran % (Auto) 0.4 Neut % (Auto) 67.8 Lymph % (Auto) 15.3 L [place] % (Auto) 10.2 Eos % (Auto) 5.5 H Baso % (Auto) 0.8 Lymph # (Auto) 0.4 L [place] # (Auto) 0.2 Eos # (Auto) 0.1 Baso # (Auto) 0.0 Abs Immat Gran (auto) 0.01 Absolute Neuts (auto) 1.6 L Absolute Nucleated RBC 0.000 Nucleated RBC % (auto) 0.0 VBG pH VBG pCO2 VBG pO2 VBG HCO3 VBG O2 Saturation VBG Base Excess Sodium 135 Potassium 4.7 Chloride 104 Carbon Dioxide 20 L Anion Gap 16 BUN 82 H Creatinine 7.16 H* Estim Creat Clear Calc 11.6 Estimated GFR 7 POC Glucose Random Glucose 137 H Calcium 8.3 L D Phosphorus Magnesium Total Bilirubin Direct Bilirubin AST ALT Alkaline Phosphatase Troponin I High Sens Total Protein Albumin Influenza Type A (PCR) Influenza Type B (PCR) RSV RNA Qual (PCR) SARS-CoV-2 RNA (RT-PCR) Imaging Radiology Impressions: ITS Impressions Chest X-Ray 06/24/23 15:12 IMPRESSION: Cardiac silhouette is enlarged, more prominent as compared to previous, probably related to rotated positioning. Suspected bibasilar atelectasis. Mental Status Exam Mental Status Exam Patient Appearance: Fatigued and Disheveled Level of Consciousness: Drowsy Patient Behavior: Passive and Fatigued Mood Description: Withdrawn Affect Description: Withdrawn Patient Cognition Impaired: Yes Ability to Follow Directions: Fair Speech Pattern: Soft-Spoken Judgement: Fair Medications Medications Current Medications Acetaminophen (Acetaminophen 325 Mg Tablet) 650 mg PO Q6H PRN PRN Reason: Pain, Mild (Pain Scale 1-3) Last Admin: 06/25/23 08:39 Dose: 650 mg Carvedilol (Carvedilol 12.5 Mg Tablet) 12.5 mg PO BID [facility]; Protocol Last Admin: 06/24/23 22:42 Dose: Not Given Docusate Sodium (Docusate Sodium 100 Mg Capsule) 100 mg PO DAILY PRN PRN Reason: constipation Doxycycline Monohydrate (Doxycycline Monohydrate 100 Mg Capsule) 100 mg PO BID [facility] Last Admin: 06/25/23 08:28 Dose: 100 mg Glucose (Glucose Gel 15 Gm Gel..Gram.) 15 gm PO Q15M PRN; Protocol PRN Reason: per Hypoglycemia Standing Ord. Heparin Sodium (Porcine) (Heparin Sodium,Porcine 5,000 Unit/Ml Vial) 5,000 unit SUBCUT Q12H [facility] Last Admin: 06/25/23 05:05 Dose: Not Given Hydralazine HCl (Hydralazine Hcl 20 Mg/Ml Vial) 10 mg IVPUSH Q6H PRN; Protocol PRN Reason: SBP > 180 Hydralazine HCl (Hydralazine Hcl 50 Mg Tablet) 50 mg PO TID [facility]; Protocol Last Admin: 06/25/23 08:28 Dose: 50 mg Dextrose (D10) 250 mls @ 750 mls/hr IV Q15M PRN; Protocol PRN Reason: per Hypoglycemia Standing Ord. Insulin Human Lispro (Insulin Lispro 100 Unit/Ml 3 Ml Vial) 0 unit SUBCUT QIDACHS [facility]; Protocol Last Admin: 06/25/23 08:33 Dose: Not Given Isosorbide Mononitrate (Isosorbide Mononitrate 30 Mg Tab.Er.24h) 30 mg PO DAILY [facility]; Protocol Last Admin: 06/25/23 08:28 Dose: 30 mg Levetiracetam (Levetiracetam 1,000 Mg Tablet) 1,000 mg PO DAILY [facility] Last Admin: 06/25/23 08:28 Dose: 1,000 mg Losartan Potassium (Losartan Potassium 50 Mg Tablet) 50 mg PO DAILY [facility]; Protocol Mirtazapine (Mirtazapine 7.5 Mg Tablet) 7.5 mg PO BEDTIME [facility] Last Admin: 06/24/23 22:43 Dose: Not Given Nifedipine (Nifedipine Er 90 Mg Tab.Er.24) 90 mg PO DAILY [facility]; Protocol Last Admin: 06/25/23 08:28 Dose: 90 mg Ondansetron HCl (Ondansetron Hcl 4 Mg/2 Ml Vial) 4 mg IVPUSH Q8H PRN PRN Reason: Nausea and Vomiting Last Admin: 06/25/23 03:30 Dose: 4 mg Oxycodone HCl (Oxycodone Hcl Immed Release 5 Mg Tablet) 5 mg PO TID PRN PRN Reason: Pain, Severe (Pain Scale 7-10) Last Admin: 06/25/23 08:39 Dose: 5 mg Senna (Sennosides 8.6 Mg Tablet) 17.2 mg PO BEDTIME PRN PRN Reason: Constipation Sodium Chloride (0.9 % Sodium Chloride Flush 3 Ml Syringe) 3 ml IVFLUSH QSHIFT [facility] Last Admin: 06/25/23 08:46 Dose: 3 ml Torsemide (Torsemide 20 Mg Tablet) 40 mg PO BID [facility]; Protocol Last Admin: 06/25/23 08:28 Dose: 40 mg Allergies Allergies Allergy/AdvReac Type Severity Reaction Status Date / Time morphine [MORPHINE] Allergy Intermediate Itching Verified 06/24/23 14:18 azithromycin [From Zithromax] Allergy Hives Verified 06/24/23 14:18 gabapentin Allergy Facial Verified 06/24/23 14:18 Swelling tramadol Allergy Facial Verified 06/24/23 14:18 Swelling vancomycin Allergy Anaphylaxis Verified 06/24/23 14:18 Assessment & Plan Assessment & Plan (1) ESRD (end stage renal disease): Status: Acute Code(s): N18.6 - End stage renal disease (2) Hypertensive urgency: Status: Acute Code(s): I16.0 - Hypertensive urgency (3) Acidosis: Status: Acute Code(s): E87.20 - Acidosis, unspecified (4) Major depressive disorder, single episode, severe: Status: Acute Code(s): F32.2 - Major depressive disorder, single episode, severe without psychotic features Plan consider adding zoloft 25mg daily assess pain management protocol to maximize efficacy once medically cleared recommend Level Of care assessment to see if psychiatric hospitalization needed Total time managing care of this patient today ___60_ minutes. Patient educated on: medication risk/benefits and therapeutic strategies Informed Consent: further education needed
--- NOTE | 2023-06-25 14:18 | HO.PM.IMPN ---
Subjective Subjective Date of Service: 06/25/23 Interval History: c/o abd pain, generalized body pain but denies chest pain refused all meds this AM refused EKG finally convinced to go to Review of Systems Review of Systems: Yes all other systems are reviewed and are negative Physical Exam Vital Signs: Vital Signs: Last Vital Signs Temp 97.7 F 06/25/23 13:54 Pulse 66 06/25/23 13:54 Resp 20 06/25/23 13:54 BP 102/53 L 06/25/23 13:54 Pulse Ox 100 06/25/23 13:54 O2 Del Method Nasal Cannula 06/25/23 13:54 O2 Flow Rate 3 06/25/23 13:54 BMI result Body Mass Index 30.2 Gen: tearful HEENT: sclera anicteric, moist mucus membranes, blind Neck: supple Lungs: clear to auscultation bilaterally Heart: regular rate and rhythm, no murmurs Abd: soft, non-tender, non-distended Ext: s/p R TMA Skin: plantar ulcer on R foot, also dry ulcer on L foot with eschar Neuro: alert and oriented x3, no focal findings Psych: restricted affect Objective Data Active Medications Acetaminophen (Acetaminophen 325 Mg Tablet) 650 mg PO Q6H PRN PRN Reason: Pain, Mild (Pain Scale 1-3) Last Admin: 06/25/23 08:39 Dose: 650 mg Documented By: MALLIKA Carvedilol (Carvedilol 12.5 Mg Tablet) 12.5 mg PO BID [facility]; Protocol Last Admin: 06/24/23 22:42 Dose: Not Given Documented By: SORAIDA Non-Admin Reason: Patient Refused Docusate Sodium (Docusate Sodium 100 Mg Capsule) 100 mg PO DAILY PRN PRN Reason: constipation Doxycycline Monohydrate (Doxycycline Monohydrate 100 Mg Capsule) 100 mg PO BID [facility] Last Admin: 06/25/23 08:28 Dose: 100 mg Documented By: MALLIKA Glucose (Glucose Gel 15 Gm Gel..Gram.) 15 gm PO Q15M PRN; Protocol PRN Reason: per Hypoglycemia Standing Ord. Heparin Sodium (Porcine) (Heparin Sodium,Porcine 5,000 Unit/Ml Vial) 5,000 unit SUBCUT Q12H [facility] Last Admin: 06/25/23 05:05 Dose: Not Given Documented By: MARIE Non-Admin Reason: Patient Refused Hydralazine HCl (Hydralazine Hcl 20 Mg/Ml Vial) 10 mg IVPUSH Q6H PRN; Protocol PRN Reason: SBP > 180 Hydralazine HCl (Hydralazine Hcl 50 Mg Tablet) 50 mg PO TID [facility]; Protocol Last Admin: 06/25/23 08:28 Dose: 50 mg Documented By: MALLIKA Dextrose (D10) 250 mls @ 750 mls/hr IV Q15M PRN; Protocol PRN Reason: per Hypoglycemia Standing Ord. Insulin Human Lispro (Insulin Lispro 100 Unit/Ml 3 Ml Vial) 0 unit SUBCUT QIDACHS [facility]; Protocol Last Admin: 06/25/23 08:33 Dose: Not Given Documented By: MALLIKA Non-Admin Reason: patient refued point of care test Isosorbide Mononitrate (Isosorbide Mononitrate 30 Mg Tab.Er.24h) 30 mg PO DAILY [facility]; Protocol Last Admin: 06/25/23 08:28 Dose: 30 mg Documented By: MALLIKA Levetiracetam (Levetiracetam 1,000 Mg Tablet) 1,000 mg PO DAILY [facility] Last Admin: 06/25/23 08:28 Dose: 1,000 mg Documented By: MALLIKA Losartan Potassium (Losartan Potassium 50 Mg Tablet) 50 mg PO DAILY [facility]; Protocol Mirtazapine (Mirtazapine 7.5 Mg Tablet) 7.5 mg PO BEDTIME [facility] Last Admin: 06/24/23 22:43 Dose: Not Given Documented By: SORAIDA Non-Admin Reason: Patient Refused Nifedipine (Nifedipine Er 90 Mg Tab.Er.24) 90 mg PO DAILY [facility]; Protocol Last Admin: 06/25/23 08:28 Dose: 90 mg Documented By: MALLIKA Ondansetron HCl (Ondansetron Hcl 4 Mg/2 Ml Vial) 4 mg IVPUSH Q8H PRN PRN Reason: Nausea and Vomiting Last Admin: 06/25/23 03:30 Dose: 4 mg Documented By: MARIE Oxycodone HCl (Oxycodone Hcl Immed Release 5 Mg Tablet) 5 mg PO TID PRN PRN Reason: Pain, Severe (Pain Scale 7-10) Last Admin: 06/25/23 08:39 Dose: 5 mg Documented By: MALLIKA Senna (Sennosides 8.6 Mg Tablet) 17.2 mg PO BEDTIME PRN PRN Reason: Constipation Sodium Chloride (0.9 % Sodium Chloride Flush 3 Ml Syringe) 3 ml IVFLUSH QSHIFT [facility] Last Admin: 06/25/23 08:46 Dose: 3 ml Documented By: MALLIKA Torsemide (Torsemide 20 Mg Tablet) 40 mg PO BID [facility]; Protocol Last Admin: 06/25/23 08:28 Dose: 40 mg Documented By: MALLIKA Labs 06/25/23 11:16 06/25/23 11:16 Labs: Laboratory Results - last 24 hr 06/24/23 06/24/23 06/24/23 14:45 14:46 14:47 MCV 93.4 MCH 30.4 MCHC 32.6 RDW 16.0 Plt Count 98 L MPV 12.2 Immature Gran % (Auto) 0.3 Neut % (Auto) 64.1 Lymph % (Auto) 16.9 L [place] % (Auto) 13.2 H Eos % (Auto) 4.6 H Baso % (Auto) 0.9 Lymph # (Auto) 0.6 L [place] # (Auto) 0.4 Eos # (Auto) 0.2 Baso # (Auto) 0.0 Abs Immat Gran (auto) 0.01 Absolute Neuts (auto) 2.1 Absolute Nucleated RBC 0.000 Nucleated RBC % (auto) 0.0 VBG pH 7.37 VBG pCO2 29 VBG pO2 102 VBG HCO3 17 L VBG O2 Saturation 98.0 VBG Base Excess -6.5 Anion Gap 18 Estim Creat Clear Calc 11.2 Estimated GFR 6 POC Glucose Random Glucose 87 Calcium 8.9 D Phosphorus 6.8 H Magnesium 2.5 Total Bilirubin 1.3 H Direct Bilirubin 0.8 H AST 21 ALT 16 Alkaline Phosphatase 145 H Troponin I High Sens 1351.3 H* D Total Protein 7.9 Albumin 3.4 L Influenza Type A (PCR) Influenza Type B (PCR) RSV RNA Qual (PCR) SARS-CoV-2 RNA (RT-PCR) 06/24/23 06/24/23 06/24/23 15:22 15:24 18:44 MCV MCH MCHC RDW Plt Count MPV Immature Gran % (Auto) Neut % (Auto) Lymph % (Auto) [place] % (Auto) Eos % (Auto) Baso % (Auto) Lymph # (Auto) [place] # (Auto) Eos # (Auto) Baso # (Auto) Abs Immat Gran (auto) Absolute Neuts (auto) Absolute Nucleated RBC Nucleated RBC % (auto) VBG pH VBG pCO2 VBG pO2 VBG HCO3 VBG O2 Saturation VBG Base Excess Anion Gap Estim Creat Clear Calc Estimated GFR POC Glucose 88 Random Glucose Calcium Phosphorus Magnesium Total Bilirubin Direct Bilirubin AST ALT Alkaline Phosphatase Troponin I High Sens 1122.6 H* Total Protein Albumin Influenza Type A (PCR) NEGATIVE Influenza Type B (PCR) NEGATIVE RSV RNA Qual (PCR) NEGATIVE SARS-CoV-2 RNA (RT-PCR) NEGATIVE 06/25/23 11:16 MCV 93.6 MCH 30.3 MCHC 32.3 RDW 16.3 H Plt Count 84 L MPV 13.3 H Immature Gran % (Auto) 0.4 Neut % (Auto) 67.8 Lymph % (Auto) 15.3 L [place] % (Auto) 10.2 Eos % (Auto) 5.5 H Baso % (Auto) 0.8 Lymph # (Auto) 0.4 L [place] # (Auto) 0.2 Eos # (Auto) 0.1 Baso # (Auto) 0.0 Abs Immat Gran (auto) 0.01 Absolute Neuts (auto) 1.6 L Absolute Nucleated RBC 0.000 Nucleated RBC % (auto) 0.0 VBG pH VBG pCO2 VBG pO2 VBG HCO3 VBG O2 Saturation VBG Base Excess Anion Gap 16 Estim Creat Clear Calc 11.6 Estimated GFR 7 POC Glucose Random Glucose 137 H Calcium 8.3 L D Phosphorus Magnesium Total Bilirubin Direct Bilirubin AST ALT Alkaline Phosphatase Troponin I High Sens Total Protein Albumin Influenza Type A (PCR) Influenza Type B (PCR) RSV RNA Qual (PCR) SARS-CoV-2 RNA (RT-PCR) Assessment and Plan (1) ESRD (end stage renal disease): Status: Acute Plan d2 32yo F with ESRD on TuThSa, 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 No role for anticoagulation at this point chronic pain disorder - refusing oxycodone; concern for drug-seeking behavior; allergy to morphine, tramadol + gabapentin. Will try to avoid IV hydromorphone as much as possible severe depression - Pt has had dozens of hospitalizations per year for same issues and at this point it seems her primary issue is psychiatric [severe depression] and m HFrEF with chronic hypoxic resp failure - HD, torsemide, O2 CAD cardiomyopathy - ASA, carvedilol, Imdur chronic DFU with hx osteomyelitis of R TMA - wound care consultation - continue doxycycline DM2 - muna-dose lispro VTE ppx - UFH dispo - ideally inpt psychiatry In my clinical judgment, the patient requires continued inpatient hospitalization for the following reasons: HD, BP management Total time managing care of this patient today: 40 minutes. Quality Stroke Does the patient have a stroke diagnosis?: No VTE Prior VTE?: No VTE Risk Level:: Medical - moderate - high VTE Device Contraindication: Treatment Not Indicated VTE Drug Contraindication: N/A - Med Ordered
--- NOTE | 2023-06-25 15:50 | MHC.SL.SWA ---
Speech Pathologist Impression: WFL Risk of Aspiration Due to: Medically Fragile Dysphasia Diet Status: No change at this time Liquid Consistency and Strategies for Safe Swallow: Liquid Intake Recommendation: Thin Liquid Intake Strategies: Small Sips Solid Food Consistency: Dietary Recommendations: Regular Additional Modifications to Solid Foods: Unremarkable exam. Recommend continue on REGULAR texture diet and THIN liquids, pills CRUSHED in PUREE per patient's preference. Oral Medication Intake: Crushed with Puree Please contact the pharmacy regarding appropriate crushable or liquid drug formulations that are available whenever modified delivery is recommended. Compensatory Strategies and Precautions to be Taken for Safe Swallow: Sitting Upright (90 deg) Double Swallow Small Bites and Sips Alternate Liquids/Solids Rate of Ingestion Change Supervision While Eating and Drinking for Safe Swallow: Intermittent Supervision Swallowing Recommended Treatments: Compens. Strategy Educat. Recommendation for Speech: Inpatient Speech Therapy Comment: 1 f/u to monitor tolerance Frequency/Duration: Date Range for Service Req: Timeline to reassess: Dye Colorist [place] Clinican/Clinical Fellow: No Supervisory Statement: I have reviewed and agree with the student/clinical fellow's documentation: N/A Speech Language Pathologist: Jesi Montez M.A., CCC-TOLL COLLECTOR
[2023-06-25 16:04] LABS: Glucose, Whole Blood 111 mg/dL (60-115)
[2023-06-25 21:10] LABS: Glucose, Whole Blood 138 mg/dL (60-115)
[2023-06-26 03:58] VITALS: RESP 19
--- NOTE | 2023-06-26 10:14 | CONS_ITS ---
DATE OF SERVICE: 06/25/2023 REASON FOR CONSULTATION: Consult requested by the hospitalist team to evaluate and help in management. HISTORY OF PRESENT ILLNESS: Patient with end-stage renal disease, who usually gets dialyzed on Tuesdays, , Saturdays and missed dialysis treatment. The patient was recently discharged from the hospital and she has missed her dialysis on . According to the patient, the patient's VNA presented to her house, and due to their presence, she missed dialysis. She may usually does not go for dialysis on Saturdays. She has history of lho-gswcant-ibsarsolu diabetes mellitus, diabetic micro and macrovascular complications including legal blindness. She has foot ulcers, status post toe amputations and TMA. The patient presented to the hospital with a chief complaint of altered mental status. In the ER, the patient was responsive, verbal, and tearful and crying out in pain. Apparently, she got pain medications, feeling better now. She had uncontrolled hypertension with systolic blood pressure in the 190s and diastolics of 100's. The potassium level was 5.2 on admission with a bicarb of 17. She was admitted to the hospital for further evaluation and management, and renal consult has been requested for help in management of ESRD. The patient did not have any fever, chills. Denies any chest pain, palpitations, orthopnea, PND. Denies any nausea, vomiting. She does have a history of diabetic gastroparesis, but feels better at this juncture. REVIEW OF SYSTEMS: As noted above. Other system review negative. PAST MEDICAL HISTORY: History of depression, anemia of chronic disease, hypertension, ESRD, on hemodialysis. On TTS in [facility]. Missed dialysis treatment. Foot ulcers, hypertension, history of diabetic gastroparesis with chronic nausea and vomiting. History of hyperkalemia, metabolic acidosis in the setting of missed dialysis treatment, heart failure with reduced ejection fraction, diabetic foot ulcers, chronic pain, noncompliance to medication and dialysis treatment, migraine headaches, history of osteomyelitis, asthma, legal blindness. FAMILY HISTORY: Mother with coronary artery disease. History of NM, stroke, and diabetes. Father with myocardial infarction. PAST SURGICAL HISTORY: Multiple foot surgeries. PERSONAL AND SOCIAL HISTORY: The patient never smoked tobacco. Does not drink alcohol. Does not abuse illicit drugs. PHYSICAL EXAMINATION: GENERAL: Patient is resting in the bed. Awake, alert, oriented x3. VITAL SIGNS: Blood pressure was 195/95, pulse 67, afebrile. HEENT: Bilateral blindness. NECK: Supple. There was no JVD. CARDIOVASCULAR SYSTEM: S1, S2 without rub or murmur. RESPIRATORY SYSTEM: Decreased in bases. No crepitation or rhonchi are noted. ABDOMEN: Soft, nontender. No guarding noted. Bowel sounds normal. EXTREMITIES: Bilateral TMA with a right lower extremity dressed ulcer. LABORATORY DATA: Done today. WBC is 2.4, hemoglobin 7.6, hematocrit 23.5, platelets were 84. Her baseline platelet level has been ranging around 130s to 150s. Her admission platelet count was 98. ABG 7.37, 29, 102. Sodium 135, potassium 4.7, chloride 104, CO2 20, BUN 82, creatinine 7.16, glucose 137, calcium 8.3, phosphorus 6.8, magnesium 2.5, total bilirubin is elevated to 1.3, highly sensitive troponin was 1126, which is much higher than the baseline, is ranging around 12 to 30. Albumin was 3.4. IMPRESSION: A 32-year-old female with: 1. End-stage renal disease, on hemodialysis. Admitted with altered mental status, missed dialysis treatment. 2. Uncontrolled hypertension in the setting of missed dialysis treatment. 3. Elevated troponin/acute coronary syndrome. 4. Chronic pain. 5. Type 2 diabetes mellitus. 6. History of heart failure. RECOMMENDATION: At this juncture, I arrange for hemodialysis for the patient in the inpatient dialysis unit. We will try to dialyze the patient and remove fluid as tolerated. We will use potassium per protocol. In regard to hypertension, continue with antihypertensive medications, increase hydralazine, carvedilol as needed. Patient is already on ARB, losartan 50 mg daily. Would continue with nifedipine. Patient still makes urine. Continue with furosemide 40 mg 2 times a day. We can increase it to 80 mg b.i.d. in the next few days if needed. Cardiology evaluation/followup regarding elevated troponin levels. The patient is not on any phosphate binders as she has had severe gastroparesis associated with it. We can use Tums 500 mg to 1 g t.i.d. with meals for hyperphosphatemia. In regard to anemia, we will check iron stores and consider giving her IV iron versus erythropoietin. I recommend counseling for this patient regarding noncompliance. I did talk to patient about compliance with her dialysis treatments. Thank you for allowing me to participate in medical management of the patient. MD SANTOS Morales/PAULINA / [phone]
[2023-06-26] MEDS: HYDROmorphone HCl 0.5 MG/0.5 ML SYRINGE IVPUSH (10:19)
[2023-06-26] MEDS: 0.9 % Sodium Chloride Flush 3 ML SYRINGE IVFLUSH ×2 (10:19→18:13)
[2023-06-26] MEDS: Sertraline HCL 25 MG TABLET PO (10:20)
[2023-06-26] MEDS: NIFEdipine ER 90 MG TAB.ER.24 PO (10:20)
[2023-06-26] MEDS: hydrALAZINE HCl 50 MG TABLET PO ×2 (10:20→18:14)
[2023-06-26] MEDS: carvediloL 12.5 MG TABLET PO (10:21)
[2023-06-26] MEDS: levETIRAcetam 1,000 MG TABLET 1000 MG PO (10:21)
[2023-06-26 10:53] LABS: Hematocrit 24.5 % (37.0-47.0); Hemoglobin 8.1 g/dl (12.0-16.0); Mean Corpuscular HGB Conc 33.1 g/dl (31.0-35.0); Mean Corpuscular Hemoglobin 30.9 pg (27.0-33.0); Mean Corpuscular Volume 93.5 fL (80.0-98.0); Platelet Count 100 X10*3/uL (160-400); Red Blood Count 2.62 X10*6/uL (4.20-5.50)
[2023-06-26 10:58] LABS: White Blood Count 2.5 X10*3/uL (4.8-10.8)
--- NOTE | 2023-06-26 10:59 | HO.PM.IMPN ---
Subjective Subjective Date of Service: 06/26/23 Interval History: dialyzed yesterday, scheduled for again today no chest pain but c/o generalized body pain Review of Systems Review of Systems: Yes all other systems are reviewed and are negative Physical Exam Vital Signs: Vital Signs: Last Vital Signs Temp 97.5 F 06/25/23 23:42 Pulse 68 06/25/23 23:42 Resp 19 06/26/23 03:58 BP 130/65 06/25/23 23:42 Pulse Ox 95 06/25/23 23:42 O2 Del Method Room Air 06/25/23 23:42 O2 Flow Rate 3 06/25/23 15:21 BMI result Body Mass Index 30.2 Gen: NAD HEENT: sclera anicteric, moist mucus membranes, blind Neck: supple Lungs: clear to auscultation bilaterally Heart: regular rate and rhythm, no murmurs Abd: soft, non-tender, non-distended Ext: s/p R TMA, s/p L 1st + 5th toe amputations Skin: plantar ulcer on R foot, also dry ulcer on L foot with eschar Neuro: alert and oriented x3, no focal findings Psych: restricted affect Objective Data Active Medications Acetaminophen (Acetaminophen 325 Mg Tablet) 650 mg PO Q6H PRN PRN Reason: Pain, Mild (Pain Scale 1-3) Last Admin: 06/25/23 08:39 Dose: 650 mg Documented By: MALLIKA Carvedilol (Carvedilol 12.5 Mg Tablet) 12.5 mg PO BID [facility]; Protocol Last Admin: 06/26/23 10:21 Dose: 12.5 mg Documented By: MALLIKA Docusate Sodium (Docusate Sodium 100 Mg Capsule) 100 mg PO DAILY PRN PRN Reason: constipation Doxycycline Monohydrate (Doxycycline Monohydrate 100 Mg Capsule) 100 mg PO BID [facility] Last Admin: 06/26/23 10:26 Dose: Not Given Documented By: MALLIKA Non-Admin Reason: Patient Refused Glucose (Glucose Gel 15 Gm Gel..Gram.) 15 gm PO Q15M PRN; Protocol PRN Reason: per Hypoglycemia Standing Ord. Hydralazine HCl (Hydralazine Hcl 20 Mg/Ml Vial) 10 mg IVPUSH Q6H PRN; Protocol PRN Reason: SBP > 180 Hydralazine HCl (Hydralazine Hcl 50 Mg Tablet) 50 mg PO TID [facility]; Protocol Last Admin: 06/26/23 10:20 Dose: 50 mg Documented By: MALLIKA Dextrose (D10) 250 mls @ 750 mls/hr IV Q15M PRN; Protocol PRN Reason: per Hypoglycemia Standing Ord. Insulin Human Lispro (Insulin Lispro 100 Unit/Ml 3 Ml Vial) 0 unit SUBCUT QIDACHS [facility]; Protocol Last Admin: 06/26/23 10:25 Dose: Not Given Documented By: MALLIKA Non-Admin Reason: Patient Refused Isosorbide Mononitrate (Isosorbide Mononitrate 30 Mg Tab.Er.24h) 30 mg PO DAILY [facility]; Protocol Last Admin: 06/26/23 10:27 Dose: Not Given Documented By: MALLIKA Non-Admin Reason: Patient Refused Levetiracetam (Levetiracetam 1,000 Mg Tablet) 1,000 mg PO DAILY [facility] Last Admin: 06/26/23 10:21 Dose: 1,000 mg Documented By: MALLIKA Losartan Potassium (Losartan Potassium 50 Mg Tablet) 50 mg PO DAILY [facility]; Protocol Last Admin: 06/26/23 10:27 Dose: Not Given Documented By: MALLIKA Non-Admin Reason: Patient Refused Mirtazapine (Mirtazapine 7.5 Mg Tablet) 7.5 mg PO BEDTIME [facility] Last Admin: 06/25/23 21:06 Dose: Not Given Documented By: MARIE Non-Admin Reason: Patient Refused Nifedipine (Nifedipine Er 90 Mg Tab.Er.24) 90 mg PO DAILY [facility]; Protocol Last Admin: 06/26/23 10:20 Dose: 90 mg Documented By: MALLIKA Ondansetron HCl (Ondansetron Hcl 4 Mg/2 Ml Vial) 4 mg IVPUSH Q8H PRN PRN Reason: Nausea and Vomiting Last Admin: 06/25/23 03:30 Dose: 4 mg Documented By: MARIE Oxycodone HCl (Oxycodone Hcl Immed Release 5 Mg Tablet) 10 mg PO TID PRN PRN Reason: Pain, Severe (Pain Scale 7-10) Senna (Sennosides 8.6 Mg Tablet) 17.2 mg PO BEDTIME PRN PRN Reason: Constipation Sertraline HCl (Sertraline Hcl 25 Mg Tablet) 25 mg PO DAILY [facility] Last Admin: 06/26/23 10:20 Dose: 25 mg Documented By: MALLIKA Sodium Chloride (0.9 % Sodium Chloride Flush 3 Ml Syringe) 3 ml IVFLUSH QSHIFT [facility] Last Admin: 06/26/23 10:19 Dose: 3 ml Documented By: MALLIKA Torsemide (Torsemide 20 Mg Tablet) 40 mg PO BID [facility]; Protocol Last Admin: 06/26/23 10:40 Dose: Not Given Documented By: MALLIKA Non-Admin Reason: Patient Refused Labs 06/26/23 10:45 06/25/23 11:16 Labs: Laboratory Results - last 24 hr 06/25/23 06/25/23 06/25/23 11:16 13:56 21:02 MCV 93.6 MCH 30.3 MCHC 32.3 RDW 16.3 H Plt Count 84 L MPV 13.3 H Immature Gran % (Auto) 0.4 Neut % (Auto) 67.8 Lymph % (Auto) 15.3 L [place] % (Auto) 10.2 Eos % (Auto) 5.5 H Baso % (Auto) 0.8 Lymph # (Auto) 0.4 L [place] # (Auto) 0.2 Eos # (Auto) 0.1 Baso # (Auto) 0.0 Abs Immat Gran (auto) 0.01 Absolute Neuts (auto) 1.6 L Absolute Nucleated RBC 0.000 Nucleated RBC % (auto) 0.0 Anion Gap 16 Estim Creat Clear Calc 11.6 Estimated GFR 7 POC Glucose 111 138 H Random Glucose 137 H Calcium 8.3 L D Assessment and Plan (1) ESRD (end stage renal disease): Status: Acute Plan d3 32yo F with ESRD on TuThSa, 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 No role for anticoagulation at this point chronic pain disorder - refusing oxycodone; concern for drug-seeking behavior; allergy to morphine, tramadol + gabapentin. Will try to avoid IV hydromorphone as much as possible severe depression - Pt has had dozens of hospitalizations per year for same issues and at this point it seems the primary barrier to her medical health is psychiatric [severe depression]. Start sertraline 25 mg daily per Psychiatry recommendation and will re-consult after HD for LOC determination HFrEF with chronic hypoxic resp failure - HD, torsemide, O2 3-4L CAD cardiomyopathy - ASA, carvedilol, Imdur chronic DFU with hx osteomyelitis of R TMA - wound care consulted: 1. Turn and Reposition every 2 hours and as needed for patient comfort. 2. Off Load all bony prominences with use of pillows and heel boots as needed. 3. Provide adequate and supplemental nutrition. 4. Maintain blood glucose levels per Providers orders. 5. Right and Left Foot - Cleanse and irrigate with NS, Pat dry. Apply cut to size Durafiber AG to wound bed , cover with dry gauze, ABD pad and gauze wrap. Change every other day. Off Load Pressure. - continue doxycycline DM2 - muna-dose lispro VTE ppx - UFH dispo - ideally inpt psychiatry In my clinical judgment, the patient requires continued inpatient hospitalization for the following reasons: HD, BP management Total time managing care of this patient today: 40 minutes. Quality Stroke Does the patient have a stroke diagnosis?: No VTE Prior VTE?: No VTE Risk Level:: Medical - moderate - high VTE Device Contraindication: Treatment Not Indicated VTE Drug Contraindication: N/A - Med Ordered
[2023-06-26 11:08] LABS: Glucose, Whole Blood 106 mg/dL (60-115)
[2023-06-26 12:01] LABS: Anion Gap 13 (12-20); Blood Urea Nitrogen 47 mg/dL (9-16); Calcium 8.3 mg/dL (8.4-10.2); Carbon Dioxide 22 mmol/L (22-29); Chloride 105 mmol/L (96-108); Creatinine Clr Calc Pharmacy 16.7; Estimated Glomerular Filt Rate 10; Glucose Random 116 mg/dL (60-115); Potassium 4.1 mmol/L (3.3-5.1); Sodium 136 mmol/L (135-145)
[2023-06-26 15:00] VITALS: BP 132/65; PULSE 70; RESP 20; TEMP 36.6; O2SAT 100
--- NOTE | 2023-06-26 15:24 | MHC.SL.SWA ---
Speech Pathologist Impression: Risk of Aspiration Due to: Medically Fragile Dysphasia Diet Status: Continue on Regular diet with thin liquids, pills whole w/liquid or puree as preferred by patient/RN. D/C speech therapy. Liquid Consistency and Strategies for Safe Swallow: Liquid Intake Recommendation: Thin Liquid Intake Strategies: Unrestricted Solid Food Consistency: Dietary Recommendations: Regular Additional Modifications to Solid Foods: Unremarkable exam. Recommend continue on REGULAR texture diet and THIN liquids, pills CRUSHED in PUREE per patient's preference. Oral Medication Intake: Whole with Puree Please contact the pharmacy regarding appropriate crushable or liquid drug formulations that are available whenever modified delivery is recommended. Compensatory Strategies and Precautions to be Taken for Safe Swallow: Sitting Upright (90 deg) Liquids from Cup Liquids from Straw Supervision While Eating and Drinking for Safe Swallow: Intermittent Supervision Foods to Avoid: Swallowing Recommended Treatments: Compens. Strategy Educat. Recommendation for Speech: Inpatient Speech Therapy Comment: Patient seen after she returned from Dialysis in the pm. Per RN, patient has been managing regular diet with no difficulties. Patient reported that she is doing ok but noted that she doesn't have the appetite she normally has. It was noted that she consumed a burger and two oranges in sections for her lunch today, and completely cleaned the plate. Patient was offered and given some bites of orange sherbet, with patient producing a normal oral phase, normal swallow, and no clinical signs of aspiration on several trials. Patient was also observed taking sips of water by straw, with no incident. Patient presents as tolerating current diet well, requires some 'checks to make sure she is not eating reclined, but otherwise does not need further dysphagia therapy services from [facility]. Recommend D/C Speech. Please re-contact if any further concerns arise. Frequency/Duration: Date Range for Service Req: Timeline to reassess: Adult Psychiatrist Clinican/Clinical Fellow: No Supervisory Statement: I have reviewed and agree with the student/clinical fellow's documentation: N/A Speech Language Pathologist: Ksenia Sanabria M.A., [facility]
[2023-06-26] MEDS: oxyCODONE HCl Immed Release 5 MG TABLET 10 MG PO (18:08)
[2023-06-26 20:00] VITALS: BP 112/68; PULSE 67; RESP 20; TEMP 36.4; O2SAT 98
[2023-06-27 02:00] VITALS: BP 81/53; PULSE 60; O2SAT 98
[2023-06-27 06:51] VITALS: BP 106/61; PULSE 67; RESP 20; TEMP 36.3; O2SAT 98
[2023-06-27] MEDS: oxyCODONE HCl Immed Release 5 MG TABLET 10 MG PO ×2 (07:39→16:51)
[2023-06-27] MEDS: Torsemide 20 MG TABLET 40 MG PO ×2 (08:56→21:23)
[2023-06-27] MEDS: Sertraline HCL 25 MG TABLET PO (08:59)
[2023-06-27] MEDS: Doxycycline Monohydrate 100 MG CAPSULE PO ×2 (08:59→21:22)
[2023-06-27] MEDS: levETIRAcetam 1,000 MG TABLET 1000 MG PO (08:59)
[2023-06-27] MEDS: 0.9 % Sodium Chloride Flush 3 ML SYRINGE IVFLUSH ×2 (09:00→16:51)
--- NOTE | 2023-06-27 10:31 | MHC.CM.PN ---
Per ROUNDS discussion, when Patient is medically cleared for dc a consult to Care Team for LOC will be ordered. CM will follow.
[2023-06-27 11:07] VITALS: BP 131/68; PULSE 70; RESP 18; TEMP 36.5; O2SAT 100
[2023-06-27] MEDS: diphenhydrAMINE HCL 50 MG/ML VIAL 25 MG IVPUSH ×2 (11:15→22:05)
--- NOTE | 2023-06-27 11:51 | P.PNNP_ITS ---
Subjective Subjective Date of Service: 06/27/23 Interval history: seen and examined Physical Exam 2 Vital Signs: Vital Signs: Last Vital Signs Temp 97.7 F 06/27/23 11:07 Pulse 70 06/27/23 11:07 Resp 18 06/27/23 11:07 BP 131/68 06/27/23 11:07 Pulse Ox 100 06/27/23 11:07 O2 Del Method Nasal Cannula 06/27/23 11:07 O2 Flow Rate 2 06/27/23 06:51 BMI result Body Mass Index 30.2 Const: General: comfortable and in distress (Complaints of pain all over; tearful) HEENT: Other: Unremarkable Head: Yes normal to inspection Neck: Neck: Yes normal visual inspection Chest: Chest palpation & inspection: normal inspection of the chest Resp: Auscultation: clear to auscultation bilaterally Cardio: Palpation: normal PMI Heart sounds: S1 normal heart sound present, S2 normal heart sound present, no gallops, no murmurs and no rubs GI: Palpation (GI): Soft to palpation Extrem: General: Yes normal to inspection Objective Data Labs 06/26/23 10:45 06/26/23 10:45 Labs: Laboratory Results - last 24 hr 06/26/23 10:45 Sodium 136 Potassium 4.1 Chloride 105 Carbon Dioxide 22 Anion Gap 13 BUN 47 H Creatinine 5.02 H* Estim Creat Clear Calc 16.7 Estimated GFR 10 Random Glucose 116 H Calcium 8.3 L Procedures Date of Service Date of Service: 06/27/23 Assessment & Plan Assessment and plan (1) ESRD (end stage renal disease): Status: Acute (2) Hypertension: Status: Acute (3) Anemia: Status: Acute Plan ESRD on HD t-t-s at [facility] followed by Dr Siddiqi h/o non adherence HFpEF nephrogenic anemia REC HD in am renal diet VIPUL P binders Time Spent With Patient Time: Total time managing care of this patient today ____ minutes. Progress Note: Quality Stroke Does the patient have a stroke diagnosis?: No
--- NOTE | 2023-06-27 13:01 | HO.PM.IMPN ---
Subjective Subjective Date of Service: 06/27/23 Interval History: got HD M+Tu depressed chronic pain BP 81/53 overnight, got 1 dose IV albumin Review of Systems Review of Systems: Yes all other systems are reviewed and are negative Physical Exam Vital Signs: Vital Signs: Last Vital Signs Temp 97.7 F 06/27/23 11:07 Pulse 70 06/27/23 11:07 Resp 18 06/27/23 11:07 BP 131/68 06/27/23 11:07 Pulse Ox 100 06/27/23 11:07 O2 Del Method Nasal Cannula 06/27/23 11:07 O2 Flow Rate 2 06/27/23 06:51 BMI result Body Mass Index 30.2 Gen: NAD HEENT: sclera anicteric, moist mucus membranes, blind Neck: supple Lungs: clear to auscultation bilaterally Heart: regular rate and rhythm, no murmurs Abd: soft, non-tender, non-distended Ext: s/p R TMA, s/p L 1st + 5th toe amputations Skin: plantar ulcer on R foot, also dry ulcer on L foot with eschar Neuro: alert and oriented x3, no focal findings Psych: restricted affect Objective Data Active Medications Acetaminophen (Acetaminophen 325 Mg Tablet) 650 mg PO Q6H PRN PRN Reason: Pain, Mild (Pain Scale 1-3) Last Admin: 06/25/23 08:39 Dose: 650 mg Documented By: MALLIKA Carvedilol (Carvedilol 12.5 Mg Tablet) 12.5 mg PO BID [facility]; Protocol Last Admin: 06/27/23 07:41 Dose: Not Given Documented By: LARRY Non-Admin Reason: soft BP- MD held med Docusate Sodium (Docusate Sodium 100 Mg Capsule) 100 mg PO DAILY PRN PRN Reason: constipation Doxycycline Monohydrate (Doxycycline Monohydrate 100 Mg Capsule) 100 mg PO BID [facility] Last Admin: 06/27/23 08:59 Dose: 100 mg Documented By: LARRY Glucose (Glucose Gel 15 Gm Gel..Gram.) 15 gm PO Q15M PRN; Protocol PRN Reason: per Hypoglycemia Standing Ord. Hydralazine HCl (Hydralazine Hcl 50 Mg Tablet) 50 mg PO TID [facility]; Protocol Last Admin: 06/27/23 07:41 Dose: Not Given Documented By: LARRY Non-Admin Reason: soft BP- MD held med Dextrose (D10) 250 mls @ 750 mls/hr IV Q15M PRN; Protocol PRN Reason: per Hypoglycemia Standing Ord. Insulin Human Lispro (Insulin Lispro 100 Unit/Ml 3 Ml Vial) 0 unit SUBCUT QIDACHS [facility]; Protocol Last Admin: 06/27/23 12:01 Dose: Not Given Documented By: LARRY Non-Admin Reason: No Insulin Coverage Isosorbide Mononitrate (Isosorbide Mononitrate 30 Mg Tab.Er.24h) 30 mg PO DAILY [facility]; Protocol Last Admin: 06/27/23 07:42 Dose: Not Given Documented By: LARRY Non-Admin Reason: jaime BP- MD held med Levetiracetam (Levetiracetam 1,000 Mg Tablet) 1,000 mg PO DAILY [facility] Last Admin: 06/27/23 08:59 Dose: 1,000 mg Documented By: LARRY Losartan Potassium (Losartan Potassium 50 Mg Tablet) 50 mg PO DAILY [facility]; Protocol Last Admin: 06/27/23 07:42 Dose: Not Given Documented By: LARRY Non-Admin Reason: jaime BP- MD held med Mirtazapine (Mirtazapine 7.5 Mg Tablet) 7.5 mg PO BEDTIME [facility] Last Admin: 06/26/23 21:34 Dose: Not Given Documented By: AARON Non-Admin Reason: Patient Refused Nifedipine (Nifedipine Er 90 Mg Tab.Er.24) 90 mg PO DAILY [facility]; Protocol Last Admin: 06/27/23 07:42 Dose: Not Given Documented By: LARRY Non-Admin Reason: soft BP- MD held med Ondansetron HCl (Ondansetron Hcl 4 Mg/2 Ml Vial) 4 mg IVPUSH Q8H PRN PRN Reason: Nausea and Vomiting Last Admin: 06/25/23 03:30 Dose: 4 mg Documented By: MARIE Oxycodone HCl (Oxycodone Hcl Immed Release 5 Mg Tablet) 10 mg PO TID PRN PRN Reason: Pain, Severe (Pain Scale 7-10) Last Admin: 06/27/23 07:39 Dose: 10 mg Documented By: LARRY Senna (Sennosides 8.6 Mg Tablet) 17.2 mg PO BEDTIME PRN PRN Reason: Constipation Sertraline HCl (Sertraline Hcl 25 Mg Tablet) 25 mg PO DAILY [facility] Last Admin: 06/27/23 08:59 Dose: 25 mg Documented By: LARRY Sodium Chloride (0.9 % Sodium Chloride Flush 3 Ml Syringe) 3 ml IVFLUSH QSHIFT [facility] Last Admin: 06/27/23 09:00 Dose: 3 ml Documented By: LARRY Torsemide (Torsemide 20 Mg Tablet) 40 mg PO BID [facility]; Protocol Last Admin: 06/27/23 08:56 Dose: 40 mg Documented By: LARRY Labs 06/26/23 10:45 06/26/23 10:45 Labs: Laboratory Results - last 24 hr 06/27/23 11:08 POC Glucose 120 H Assessment and Plan (1) ESRD (end stage renal disease): Status: Acute Plan d4 32yo F with ESRD on TuThSa, 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 Now hypotensive. Actually got albumin overnight. Suspect she never really took that many BP meds and they were just added on serially. For now, will just give Imdur and add back antihypertensives as needed. NSTEMI - Cardiology consulted, likely due to HTN urgency and missing HD. No role for anticoagulation at this point chronic pain disorder - refusing oxycodone; concern for drug-seeking behavior; allergy to morphine, tramadol + gabapentin. Will try to avoid IV hydromorphone as much as possible severe depression - Pt has had dozens of hospitalizations per year for same issues and at this point it seems the primary barrier to her medical health is psychiatric [severe depression]. Started sertraline 25 mg daily per Psychiatry recommendation and will place CARE Team consult regarding inpt psych care HFrEF with chronic hypoxic resp failure - HD, torsemide, O2 3-4L CAD cardiomyopathy - ASA, carvedilol, Imdur chronic DFU with hx osteomyelitis of R TMA - wound care consulted: 1. Turn and Reposition every 2 hours and as needed for patient comfort. 2. Off Load all bony prominences with use of pillows and heel boots as needed. 3. Provide adequate and supplemental nutrition. 4. Maintain blood glucose levels per Providers orders. 5. Right and Left Foot - Cleanse and irrigate with NS, Pat dry. Apply cut to size Durafiber AG to wound bed , cover with dry gauze, ABD pad and gauze wrap. Change every other day. Off Load Pressure. - continue doxycycline DM2 - muna-dose lispro VTE ppx - UFH dispo - ideally inpt psychiatry In my clinical judgment, the patient requires continued inpatient hospitalization for the following reasons: HD, BP management, psychiatric placement Total time managing care of this patient today: 40 minutes. Quality Stroke Does the patient have a stroke diagnosis?: No VTE Prior VTE?: No VTE Risk Level:: Medical - moderate - high VTE Device Contraindication: Treatment Not Indicated VTE Drug Contraindication: N/A - Med Ordered
--- NOTE | 2023-06-27 13:28 | MHC.CARE ---
Patient was seen for crisis assessment and does not meet inpatient level of care. Patient has declined voluntary inpatient admission and will be referred to [facility] to obtain a therapists for 1:1 interventions. notified.
--- NOTE | 2023-06-27 15:00 | P.DS_ITS ---
DS: Providers Provider Date of Service: 06/27/23 Date of admission: 06/24/23 17:39 Date of discharge: 06/27/23 Primary care physician: Abdon Beard MD Consults: 06/24/23 15:35 Consult to Nephrology Stat Consulting Provider: [facility] Reason for consultation: ESRD, missed HD 06/24/23 15:39 Consult to Cardiology Stat Consulting Provider: [facility] Reason for consultation: elevated trop 06/24/23 17:39 Consult to Cardiology Routine Consulting Provider: [facility] Reason for consultation: elevated trop Has provider been notified: Yes Consult to Nephrology Routine Consulting Provider: [facility] Reason for consultation: esrd on hd 06/24/23 17:56 Consult to Wound Care Routine Reason for consultation: ble diabetic foot ulcers 06/25/23 07:55 Consult to Psychiatry Routine Consulting Provider: Psych Covering Reason for consultation: refuses meds+EKG;noncompliant w/HD; profound depression; recommend inpt psy 06/27/23 11:00 Consult to Care Team Routine Comment: Reason for consultation: Consider for IPLOC. Sev dep, repeated admissions, giving up DS: Diagnosis Discharge Diagnosis (1) ESRD (end stage renal disease): Status: Acute (2) Non-compliance with renal dialysis: Status: Acute (3) Hypertensive urgency: Status: Acute (4) NSTEMI (non-ST elevated myocardial infarction): Status: Resolved (5) MDD (major depressive disorder): Status: Acute DS: Summary Hospital Course Hospital Course: From the history and physical by the admitting hospitalist, JOVON Nathan, 06/24/23: 32-year-old female with history of ESRD on dialysis TTHSa (those noncompliant with sunday as she does not like to leave the house on sunday), [id number] 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 The patient is noncompliant with HD and was last dialyzed 06/19 on day of discharge. On arrival to the ED, pt was responsive, verbal, tearful, crying out in pain. However, at times would be somnolent and not respond. NO fe vers chills,sob, chest pain. Reports pain all over her body and is refusing all PO medications including oxycodone. She says she is sick of pills . She is noncompliant with medications at home. On arrival, hypertensive to 195/105, 185/102 on admission. Vitals otherwise stable. She has chronic pancytopenia, and levels consistent with baseline. Creatinine 7.48, BUN 85. Lytes normal except for K 5.2 and CO2 17. VBG reassuring with pH 7.37, pCO2 29, bicarb 17. Initial troponin 1351.3, repeat pending. Negative for influenza, COVID-19, RSV. Chest x-ray shows enlarged cardiac silhouette and bibasilar atelectasis. EKG shows NSR, rate 76 with right bundle branch block, no acute changes from prior EKGs. In the ED, has been ordered for 30 mg isosorbide, 12.5 mg carvedilol, 50 mg hydralazine and oxycodone 5 mg but patient has refused all of these. She has received ondansetron 4 mg. 32yo F with ESRD on TuThSa, DM2 with neuropathy + retinopathy + blindness, chronic DFU s/p bilateral TMA, HTN, chronic hypoxia on 4L O2, cardiomyopathy, CHF, noncompliance, and repeated/frequent hospitalizations. She missed HD x 2 sessions and presents with HTN urgency + troponin elevation. Hospital course by problem: ESRD on HD, missed 2 sessions - Nephrology consulted, underwent dialysis 06/25/23 and 06/26/23 and should return to her usual schedule of TuThSa. The importance of not missing HD was counseled. HTN urgency - Resolved after restarting home meds [hydralazine, losartan, nifedipine, torsemide, Imdur, carvedilol] and undergoing HD x2 and then became hypotensive and actually got a dose of albumin. Suspect she never really took that many BP meds and they were just added on serially. Upon discharge, nifedipine and hydralazine were discontinued. She will continue losartan, torsemide, Imdur, and carvedilol for now but as above, compliance is suspect. VNA services to be resumed. NSTEMI - Cardiology consulted; likely due to HTN urgency and missing HD. No role for anticoagulation. severe depression - Pt has had dozens of hospitalizations per year for same issues and at this point it seems the primary barrier to her medical health is psychiatric [severe depression]. Started sertraline 25 mg daily per Psychiatry recommendation. CARE Team consulted; did not meet inpatient criteria and the patient declined voluntary admission. She was counseled to follow up with [facility] for psychiatric and counseling care. She was discharged home with resumption of VNA services. Time Attestation Discharge Coordination Time (in mins): 40 Quality: Safe Use of Opioids Does Pt have an Active Cancer Diagnosis on the Problem List?: No Quality: Stroke Does the patient have a stroke diagnosis?: No Physical Exam Vital Signs: Vital Signs: Last Vital Signs Temp 97.7 F 06/27/23 11:07 Pulse 70 06/27/23 11:07 Resp 18 06/27/23 11:07 BP 131/68 06/27/23 11:07 Pulse Ox 100 06/27/23 11:07 O2 Del Method Nasal Cannula 06/27/23 11:07 O2 Flow Rate 2 06/27/23 06:51 BMI result Body Mass Index 30.2 Gen: NAD HEENT: sclera anicteric, moist mucus membranes, blind Neck: supple Lungs: clear to auscultation bilaterally Heart: regular rate and rhythm, no murmurs Abd: soft, non-tender, non-distended Ext: s/p R TMA, s/p L 1st + 5th toe amputations Skin: plantar ulcer on R foot, also dry ulcer on L foot with eschar Neuro: alert and oriented x3, no focal findings Psych: restricted affect DS: Data Data Completed and Pending Completed studies during hospitalization [Text1]: Laboratory Results WBC 2.5 X10*3/uL (4.8-10.8) L 06/26/23 10:45 RBC 2.62 X10*6/uL (4.20-5.50) L 06/26/23 10:45 Hgb 8.1 g/dl (12.0-16.0) L 06/26/23 10:45 Hct 24.5 % (37.0-47.0) L 06/26/23 10:45 MCV 93.5 fL (80.0-98.0) 06/26/23 10:45 MCH 30.9 pg (27.0-33.0) 06/26/23 10:45 MCHC 33.1 g/dl (31.0-35.0) 06/26/23 10:45 RDW 16.0 % (11.0-16.0) 06/26/23 10:45 Plt Count 100 X10*3/uL (160-400) L 06/26/23 10:45 MPV 13.0 fL (9.4-12.3) H 06/26/23 10:45 Immature Gran % (Auto) 0.4 % (0.0-0.4) 06/25/23 11:16 Neut % (Auto) 67.8 % (45-73) 06/25/23 11:16 Lymph % (Auto) 15.3 % (20-40) L 06/25/23 11:16 [place] % (Auto) 10.2 % (2-11) 06/25/23 11:16 Eos % (Auto) 5.5 % (0-4) H 06/25/23 11:16 Baso % (Auto) 0.8 % (0-2) 06/25/23 11:16 Lymph # (Auto) 0.4 X10*3/uL (1.2-4.9) L 06/25/23 11:16 [place] # (Auto) 0.2 X10*3/uL (0.1-1.2) 06/25/23 11:16 Eos # (Auto) 0.1 X10*3/uL (0.0-0.4) 06/25/23 11:16 Baso # (Auto) 0.0 X10*3/uL (0.0-0.2) 06/25/23 11:16 Abs Immat Gran (auto) 0.01 X10*3/uL (0.00-0.03) 06/25/23 11:16 Absolute Neuts (auto) 1.6 x10*3/uL (2.0-8.3) L 06/25/23 11:16 Absolute Nucleated RBC 0.000 X10*3/uL (0.0-0.012) 06/26/23 10:45 Nucleated RBC % (auto) 0.0 /100WBC (0.0-0.2) 06/26/23 10:45 VBG pH 7.37 (7.32-7.43) 06/24/23 14:47 VBG pCO2 29 mmHg 06/24/23 14:47 VBG pO2 102 mmHg 06/24/23 14:47 VBG HCO3 17 mmol/L (22-26) L 06/24/23 14:47 VBG O2 Saturation 98.0 % 06/24/23 14:47 VBG Base Excess -6.5 mmol/L 06/24/23 14:47 Sodium 136 mmol/L (135-145) 06/26/23 10:45 Potassium 4.1 mmol/L (3.3-5.1) 06/26/23 10:45 Chloride 105 mmol/L (96-108) 06/26/23 10:45 Carbon Dioxide 22 mmol/L (22-29) 06/26/23 10:45 Anion Gap 13 (12-20) 06/26/23 10:45 BUN 47 mg/dL (9-16) H 06/26/23 10:45 Creatinine 5.02 mg/dL (0.5-1.4) H* 06/26/23 10:45 Estim Creat Clear Calc 16.7 06/26/23 10:45 Estimated GFR 10 06/26/23 10:45 POC Glucose 120 mg/dL (60-115) H 06/27/23 11:08 Random Glucose 116 mg/dL (60-115) H 06/26/23 10:45 Calcium 8.3 mg/dL (8.4-10.2) L 06/26/23 10:45 Phosphorus 6.8 mg/dL (2.7-4.5) H 06/24/23 14:46 Magnesium 2.5 mg/dL (1.6-2.6) 06/24/23 14:46 Total Bilirubin 1.3 mg/dL (0.0-1.0) H 06/24/23 14:46 Direct Bilirubin 0.8 mg/dL (0.0-0.5) H 06/24/23 14:46 AST 21 U/L (5-31) 06/24/23 14:46 ALT 16 U/L (0-31) 06/24/23 14:46 Alkaline Phosphatase 145 U/L (39-117) H 06/24/23 14:46 Troponin I High Sens 1122.6 ng/L (<3.5-17.0) H* 06/24/23 18:44 Total Protein 7.9 g/dL (6.5-8.0) 06/24/23 14:46 Albumin 3.4 g/dL (3.5-5.0) L 06/24/23 14:46 Influenza Type A (PCR) NEGATIVE (Negative) 06/24/23 15:24 Influenza Type B (PCR) NEGATIVE (Negative) 06/24/23 15:24 RSV RNA Qual (PCR) NEGATIVE (Negative) 06/24/23 15:24 SARS-CoV-2 RNA (RT-PCR) NEGATIVE (Negative) 06/24/23 15:24 Impressions Chest X-Ray 06/24/23 15:12 IMPRESSION: Cardiac silhouette is enlarged, more prominent as compared to previous, probably related to rotated positioning. Suspected bibasilar atelectasis. Discharge Plan Discharge Anticipated Discharge Date/Time: 06/27/23 14:56 Patient Disposition: Home Health Service Discharge Diagnosis: HTN urgency NSTEMI ESRD on HD noncompliance depression Referrals: [facility] [Provider Group] - 1 Week Abdon Beard MD [Primary Care Provider] - 1 Week Discharge Medications: New sertraline 25 mg Tablet 25 mg PO DAILY Qty: 30 0RF Continued (DME) off loading boot Kit See Rx Instructions .Route Qty: 1 0RF Rx Instructions: As directed losartan 50 mg tablet 50 mg PO DAILY carvedilol 12.5 mg tablet 12.5 mg PO BID torsemide 20 mg tablet 40 mg PO BID isosorbide mononitrate 30 mg tablet extended release 24 hr 30 mg PO DAILY docusate sodium 100 mg capsule 100 mg PO DAILY PRN (Reason: constipation) oxycodone 5 mg tablet 5 mg PO TID PRN (Reason: Pain) levetiracetam 1,000 mg tablet 1,000 mg PO DAILY mirtazapine 7.5 mg Tablet 7.5 mg PO BEDTIME Qty: 90 0RF doxycycline monohydrate 100 mg capsule 100 mg PO BID Qty: 14 0RF Discontinued hydralazine 100 mg tablet 50 mg PO TID nifedipine 90 mg Tablet Extended Release 24hr 90 mg PO DAILY Qty: 30 0RF Protocol: Hold for SBP< HOLD for SBP < : 90 Rx Instructions: replaces prior dose of 60 mg daily Discharge Orders: Discharge Order (Routine); Ordered 06/27/23 Ordered By: Paul Diane Diet: Diabetic diet Activity on Discharge: As tolerated Stand Alone Forms: Patient Portal Discharge page Print Language: Serbian Care Plan Goals: renal/cardiac/mental health Health Concerns: HTN urgency NSTEMI ESRD on HD noncompliance depression Plan of Treatment: Please go to hemodialysis Tuesdays, , and Saturdays Take torsemide 40 mg twice daily, losartan 50 mg once daily, isosorbide mononitrate 30 mg once daily, carvedilol 12.5 mg twice daily, and torsemide 50 mg twice daily. Stop hydralazine and nifedipine for now. Start sertraline 25 mg daily Seek psychologic counseling and psychiatric care at [facility] as advised. Assessment: See Discharge Summary.
--- NOTE | 2023-06-27 15:15 | MHC.CM.PN ---
Care Team did not deem Patient appropriate for IPLOC and [facility] cannot accept Patient back r/t her non compliance with HD ( has been made aware). CM has made additional VNA referrals that are in network with [facility] and CM awaits an acceptance.
[2023-06-27 15:32] VITALS: BP 143/82; PULSE 72; RESP 18; TEMP 36; O2SAT 99
--- NOTE | 2023-06-27 15:34 | MHC.CM.PN ---
Patient has no accepting VNA; CM spoke with MD and Patient is medically cleared for dc to home today, self care. [facility] services should resume as before.Last IMM addressed on 06/25/2023.
--- NOTE | 2023-06-27 17:29 | PC.NURSE ---
this rn attempted to notified about discharged order. pt refused to go and said I'm in a lot of pain I can't . MD notified. pt medicated w oxycodone 10mg PRN TID. MD came up to see pt. Appeal form will need to be done as case management were not available on the floor at this moment. will follow tomorrow morning. MD order additional Methadone. will continue to monitor and follow
--- NOTE | 2023-06-27 17:29 | PM.EVENT ---
Event Note Date of Service: 06/27/23 Event Note: Patient apealing discharge. Patient continues to complain of intractable pain and requests Dilaudid. We will give patient methadone 20 mg x1 dose. Will consult Addiction Medicine for opioid use disorder. Time Spent With Patient Time: Total time managing care of this patient today ____ minutes.
[2023-06-27] MEDS: ondansetron HCL 4 MG/2 ML VIAL IVPUSH (17:49)
[2023-06-27 20:00] VITALS: BP 129/68; PULSE 73; RESP 18; TEMP 36.6; O2SAT 98
[2023-06-27] MEDS: Mirtazapine 7.5 MG TABLET PO (21:22)
--- NOTE | 2023-06-27 22:09 | MHC.CARE ---
RAD Team emailed pt referral to [facility]. RAD Team will follow up tomorrow
[2023-06-28] MEDS: oxyCODONE HCl Immed Release 5 MG TABLET 10 MG PO ×2 (03:20→08:47)
[2023-06-28] MEDS: 0.9 % Sodium Chloride Flush 3 ML SYRINGE IVFLUSH ×3 (03:21→15:22)
[2023-06-28 03:34] VITALS: BP 173/88; PULSE 77; RESP 20; TEMP 36.3; O2SAT 93
[2023-06-28 07:34] VITALS: BP 168/82; PULSE 73; RESP 18; TEMP 37.1; O2SAT 94
--- NOTE | 2023-06-28 08:25 | MHC.CM.PN ---
CM met with Patient at bedside r/t documentation from last evening that Patient was appealing the dc r/t c/o pain. CM addressed another IMM with Patient, verbally, r/t Patient being Legally Blind. Patient does not wish to appeal the dc; she states that she is in a lot of pain but willing to go home today. CM will await input from MD.Original IMM left with Patient and a copy has been placed on the chart. IVAN also spoke with Patient's Sister/Josy at the listed #, who was unaware of any request to appeal the dc. CM will follow.
[2023-06-28] MEDS: diphenhydrAMINE HCL 50 MG/ML VIAL 25 MG IVPUSH (08:46)
--- NOTE | 2023-06-28 10:19 | MHC.CM.PN ---
Per ROUNDS discussion, Patient will be dc'd to home today, self care, after HD.
--- NOTE | 2023-06-28 10:54 | P.PNNP_ITS ---
Subjective Subjective Date of Service: 06/28/23 Interval history: seen and examined on HD Physical Exam 2 Vital Signs: Vital Signs: Last Vital Signs Temp 98.7 F 06/28/23 07:34 Pulse 73 06/28/23 07:34 Resp 18 06/28/23 07:34 BP 168/82 H 06/28/23 07:34 Pulse Ox 94 06/28/23 07:34 O2 Del Method Room Air 06/28/23 07:34 O2 Flow Rate 2 06/28/23 03:34 BMI result Body Mass Index 30.2 Const: General: comfortable and in distress (Complaints of pain all over; tearful) HEENT: Other: Unremarkable Head: Yes normal to inspection Neck: Neck: Yes normal visual inspection Chest: Chest palpation & inspection: normal inspection of the chest Resp: Auscultation: clear to auscultation bilaterally Cardio: Palpation: normal PMI Heart sounds: S1 normal heart sound present, S2 normal heart sound present, no gallops, no murmurs and no rubs GI: Palpation (GI): Soft to palpation Extrem: General: Yes normal to inspection Objective Data Labs 06/26/23 10:45 06/26/23 10:45 Labs: Laboratory Results - last 24 hr 06/27/23 11:08 POC Glucose 120 H Procedures Date of Service Date of Service: 06/28/23 Assessment & Plan Assessment and plan (1) ESRD (end stage renal disease): Status: Acute (2) Hypertension: Status: Acute (3) Anemia: Status: Acute Plan ESRD on HD t-t-s at [facility] followed by Dr Siddiqi h/o non adherence HFpEF nephrogenic anemia REC HD today UF as tolerated renal diet VIPUL P binders Time Spent With Patient Time: Total time managing care of this patient today ____ minutes. Progress Note: Quality Stroke Does the patient have a stroke diagnosis?: No
[2023-06-28 12:00] VITALS: BP 186/80; PULSE 79; RESP 18; TEMP 36.6; O2SAT 96
[2023-06-28 12:23] LABS: Glucose, Whole Blood 92 mg/dL (60-115)
[2023-06-28] MEDS: carvediloL 12.5 MG TABLET PO (12:29)
[2023-06-28] MEDS: Sertraline HCL 25 MG TABLET PO (12:29)
[2023-06-28] MEDS: Torsemide 20 MG TABLET 40 MG PO (12:29)
[2023-06-28] MEDS: Doxycycline Monohydrate 100 MG CAPSULE PO (12:29)
[2023-06-28] MEDS: levETIRAcetam 1,000 MG TABLET 1000 MG PO (12:29)
--- NOTE | 2023-06-28 12:31 | PM.DS ---
DS: Providers Provider Date of Service: 06/28/23 Date of admission: 06/24/23 17:39 Primary care physician: Abdon Beard MD Consults: 06/24/23 15:35 Consult to Nephrology Stat Consulting Provider: [facility] Reason for consultation: ESRD, missed HD 06/24/23 15:39 Consult to Cardiology Stat Consulting Provider: [facility] Reason for consultation: elevated trop 06/24/23 17:39 Consult to Cardiology Routine Consulting Provider: [facility] Reason for consultation: elevated trop Has provider been notified: Yes Consult to Nephrology Routine Consulting Provider: [facility] Reason for consultation: esrd on hd 06/24/23 17:56 Consult to Wound Care Routine Reason for consultation: ble diabetic foot ulcers 06/25/23 07:55 Consult to Psychiatry Routine Consulting Provider: Psych Covering Reason for consultation: refuses meds+EKG;noncompliant w/HD; profound depression; recommend inpt psy 06/27/23 11:00 Consult to Care Team Routine Comment: Reason for consultation: Consider for IPLOC. Sev dep, repeated admissions, giving up 06/27/23 17:15 Addiction Medicine Routine Consulting Provider: Addiction Covering Reason for consultation: Addicted to dilaudid; start on methadone? 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 The patient is noncompliant with HD and was last dialyzed 06/19 on day of discharge. On arrival to the ED, pt was responsive, verbal, tearful, crying out in pain. However, at times would be somnolent and not respond. NO fevers chills,sob, chest pain. Reports pain all over her body and is refusing all PO medications including oxycodone. She says she is sick of pills . She is noncompliant with medications at home. On arrival, hypertensive to 195/105, 185/102 on admission. Vitals otherwise stable. She has chronic pancytopenia, and levels consistent with baseline. Creatinine 7.48, BUN 85. Lytes normal except for K 5.2 and CO2 17. VBG reassuring with pH 7.37, pCO2 29, bicarb 17. Initial troponin 1351.3, repeat pending. Negative for influenza, COVID-19, RSV. Chest x-ray shows enlarged cardiac silhouette and bibasilar atelectasis. EKG shows NSR, rate 76 with right bundle branch block, no acute changes from prior EKGs. In the ED, has been ordered for 30 mg isosorbide, 12.5 mg carvedilol, 50 mg hydralazine and oxycodone 5 mg but patient has refused all of these. She has received ondansetron 4 mg. 32yo F with ESRD on TuThSa, DM2 with neuropathy + retinopathy + blindness, chronic DFU s/p bilateral TMA, HTN, chronic hypoxia on 4L O2, cardiomyopathy, CHF, noncompliance, and repeated/frequent hospitalizations. She missed HD x 2 sessions and presents with HTN urgency + troponin elevation. Hospital course by problem: ESRD on HD, missed 2 sessions - Nephrology consulted, underwent dialysis 06/25/23 and 06/26/23 and should return to her usual schedule of TuThSa. The importance of not missing HD was counseled. HTN urgency - Resolved after restarting home meds [hydralazine, losartan, nifedipine, torsemide, Imdur, carvedilol] and undergoing HD x2 and then became hypotensive and actually got a dose of albumin. Suspect she never really took that many BP meds and they were just added on serially. Upon discharge, nifedipine and hydralazine were discontinued. She will continue losartan, torsemide, Imdur, and carvedilol for now but as above, compliance is suspect. VNA services to be resumed. NSTEMI - Cardiology consulted; likely due to HTN urgency and missing HD. No role for anticoagulation. severe depression - Pt has had dozens of hospitalizations per year for same issues and at this point it seems the primary barrier to her medical health is psychiatric [severe depression]. Started sertraline 25 mg daily per Psychiatry recommendation. CARE Team consulted; did not meet inpatient criteria and the patient declined voluntary admission. She was counseled to follow up with [facility] for psychiatric and counseling care. Chronic back pain Discussed with recovery team given concerns of poor control and recurrent asking for specific pain killers. She spoke with Genevieve Rasmussen to discuss Methadone\Suboxone. The patient did not agree at this point to start any and will need to think about her options. She can follow with Genevieve as outpatient. She was discharged home with resumption of VNA services. Time Attestation Discharge Coordination Time (in mins): 36 Quality: Safe Use of Opioids Does Pt have an Active Cancer Diagnosis on the Problem List?: No Quality: Stroke Does the patient have a stroke diagnosis?: No Physical Exam Vital Signs: Vital Signs: Last Vital Signs Temp 98.7 F 06/28/23 07:34 Pulse 73 06/28/23 07:34 Resp 18 06/28/23 07:34 BP 168/82 H 06/28/23 07:34 Pulse Ox 94 06/28/23 07:34 O2 Del Method Room Air 06/28/23 07:34 O2 Flow Rate 2 06/28/23 03:34 BMI result Body Mass Index 30.2 Const: Other: Constitutional : Awake, interactive, nauseated Neck : Normal inspection, Supple Eyes: Legally blind Cardiovascular : RRR, trace lower extremity edema Respiratory : fair bilateral air entry,? basal fine crackles, no wheezes or rhonchi Gastrointestinal:? soft, lax, Normal bowel sounds, Non tender Neurological : Alert & oriented x3, No focal deficit. DS: Data Data Completed and Pending Completed studies during hospitalization [Text1]: Procedures Detachment at Right Foot, Partial 1st Ray, Open Approach (03/01/20) Detachment at Right Foot, Partial 2nd Ray, Open Approach (03/01/20) Detachment at Right Foot, Partial 3rd Ray, Open Approach (03/01/20) Detachment at Right Foot, Partial 4th Ray, Open Approach (03/01/20) Detachment at Right Foot, Partial 5th Ray, Open Approach (03/01/20) Drainage of Right Pleural Cavity, Percutaneous Approach (01/14/21) Excision of Left Foot Skin, External Approach (03/10/23) Excision of Stomach, Pylorus, Via Natural or Artificial Opening Endoscopic, Diagnostic (08/27/22) Fluoroscopy of Superior Vena Cava, Guidance (08/14/22) Insertion of Infusion Device into Right Atrium, Percutaneous Approach (08/14/22) Insertion of Infusion Device into Superior Vena Cava, Percutaneous Approach (01/14/21) Insertion of Tunneled Vascular Access Device into Chest Subcutaneous Tissue and Fascia, Percutaneous Approach (08/14/22) Performance of Urinary Filtration, Intermittent, Less than 6 Hours Per Day (06/17/23) Removal of Infusion Device from Great Vessel, External Approach (01/14/21) Transfusion of Nonautologous Red Blood Cells into Peripheral Vein, Percutaneous Approach (04/22/22) Labs on day of discharge: Laboratory Results - last 24 hr 06/28/23 12:17 POC Glucose 92 Imaging Chest x-ray: Radiologist's impression: ITS Impressions Chest X-Ray 06/24/23 15:12 IMPRESSION: Cardiac silhouette is enlarged, more prominent as compared to previous, probably related to rotated positioning. Suspected bibasilar atelectasis. Discharge Plan Discharge Anticipated Discharge Date/Time: 06/27/23 14:56 Patient Disposition: Home Health Service Discharge Diagnosis: HTN urgency NSTEMI ESRD on HD noncompliance depression Referrals: [facility] [Provider Group] - 1 Week Abdon Beard MD [Primary Care Provider] - 1 Week Discharge Medications: New sertraline 25 mg Tablet 25 mg PO DAILY Qty: 30 0RF Continued (DME) off loading boot Kit See Rx Instructions .Route Qty: 1 0RF Rx Instructions: As directed losartan 50 mg tablet 50 mg PO DAILY carvedilol 12.5 mg tablet 12.5 mg PO BID torsemide 20 mg tablet 40 mg PO BID isosorbide mononitrate 30 mg tablet extended release 24 hr 30 mg PO DAILY docusate sodium 100 mg capsule 100 mg PO DAILY PRN (Reason: constipation) oxycodone 5 mg tablet 5 mg PO TID PRN (Reason: Pain) levetiracetam 1,000 mg tablet 1,000 mg PO DAILY mirtazapine 7.5 mg Tablet 7.5 mg PO BEDTIME Qty: 90 0RF doxycycline monohydrate 100 mg capsule 100 mg PO BID Qty: 14 0RF Discontinued hydralazine 100 mg tablet 50 mg PO TID nifedipine 90 mg Tablet Extended Release 24hr 90 mg PO DAILY Qty: 30 0RF Protocol: Hold for SBP< HOLD for SBP < : 90 Rx Instructions: replaces prior dose of 60 mg daily Discharge Orders: Discharge Order (Routine); Ordered 06/28/23 Ordered By: Cheyenne Sears Diet: Diabetic diet Activity on Discharge: As tolerated Stand Alone Forms: Patient Portal Discharge page Print Language: Luxembourgish Care Plan Goals: renal/cardiac/mental health Health Concerns: HTN urgency NSTEMI ESRD on HD noncompliance depression Plan of Treatment: Please go to hemodialysis Tuesdays, , and Saturdays Take torsemide 40 mg twice daily, losartan 50 mg once daily, isosorbide mononitrate 30 mg once daily, and carvedilol 12.5 mg twice daily Stop hydralazine and nifedipine for now. Start sertraline 25 mg daily Seek psychologic counseling and psychiatric care at [facility] as advised. Assessment: See Discharge Summary. Discharge Date/Time: 06/28/23 17:26
--- NOTE | 2023-06-28 13:03 | MHC.CM.PN ---
IVAN has informed that Patient has been denied by all area VNAs that accept her insurance.
--- NOTE | 2023-06-28 14:14 | HO.ADDICT_ITS ---
History of Present Illness Date of Service: 06/28/2023 Chief Complaint: esrd on hd, hypertensive urgency elevated troponin Reason for Consult: concern for opioid dependance/OUD Sources of Information: patient interviewed (minimal engagement ) and chart reviewed HPI Narrative: Patient is a 32 year old female with several chronic medical issues including ESRD, chronic diabetic foot ulcers and frequent medical admissions. Consult requested as there was concern regarding patients opioid medication requests --specifically declining PO and requesting IV administration. On 06/27/23 she was requesting IV Dilaudid and was offered methadone which she declined. Chart reviewed, [facility] reviewed (only as far back as 06/2021) [facility] shows that patient has been receiving regular opiod prescriptions since at lest 06/2021, which is as far back as [facility]Pat will go. From 06/2021-08/2021 she was receiving Oxycodone 5mg 4x/day monthly scripts (likely before June of 2021 as well). After this prescriptions continued but in smaller amounts (same dose). Occasionally some hydromorphone scripts from hospital admissions. Patient seen in Dialysis room on 4th floor. She was awake and alert, however minimally involved in interview. She was wincing and moaning most of the interview and was slapping her abdomen because it hurts . This brief writer attempted to engage patient in dialogue, however she did not appear receptive as she would not respond. This brief writer then began to speak to patient and provide information regarding medications, such as buprenorphine and how it can potentially be helpful with her discomfort. While patient was not verbalizing any responses, it appeared she was listening because for brief moments she would stop moaning and slapping her side. Provided information about opoioid dependance and tolerance and how our brain can not tell the difference sometimes between pain and possible withdrawal. Briefly described how buprenorphine may be helpful. When asked what she thought, she responded, I'll think about it . Past Psychiatric History: hx of one inpatient psychiatric hospitalization at [facility]. hx of seeing an outpatient psychiatrist and therapist when she was 11 y/o; does not recall medication hx. Review of Systems Review of Systems Yes Unobtainable due to mental condition (pain reported, other systems not evaluated ) Diagnostics Vital Signs (24Hr): Vital Signs - 24 hr 06/27/23 15:32 06/27/23 20:00 06/28/23 03:34 Temperature 96.8 F 97.9 F 97.3 F Pulse Rate 72 73 77 Respiratory Rate 18 18 20 Blood Pressure 143/82 H 129/68 173/88 H Pulse Oximetry 99 98 93 Oxygen Delivery Method Nasal Cannula Room Air Nasal Cannula Oxygen Flow Rate 2 2 06/28/23 07:34 06/28/23 12:00 Temperature 98.7 F 97.8 F Pulse Rate 73 79 Respiratory Rate 18 18 Blood Pressure 168/82 H 186/80 H Pulse Oximetry 94 96 Oxygen Delivery Method Room Air Nasal Cannula Oxygen Flow Rate 3 BMI result Body Mass Index 30.2 Labs 06/26/23 10:45 06/26/23 10:45 Labs: Laboratory Results - last 48 hr 06/27/23 06/28/23 11:08 12:17 POC Glucose 120 H 92 Imaging Radiology Impressions: ITS Impressions Chest X-Ray 06/24/23 15:12 IMPRESSION: Cardiac silhouette is enlarged, more prominent as compared to previous, probably related to rotated positioning. Suspected bibasilar atelectasis. Mental Status Exam Mental Status Exam Level of Consciousness: Awake Patient Behavior: Guarded and Restless Affect Description: Apprehensive Medications Medications Current Medications Acetaminophen (Acetaminophen 325 Mg Tablet) 650 mg PO Q6H PRN PRN Reason: Pain, Mild (Pain Scale 1-3) Last Admin: 06/25/23 08:39 Dose: 650 mg Carvedilol (Carvedilol 12.5 Mg Tablet) 12.5 mg PO BID COUNT INCLUDES THE [facility]; Protocol Last Admin: 06/28/23 12:29 Dose: 12.5 mg Diphenhydramine HCl (Diphenhydramine Hcl 50 Mg/Ml Vial) 25 mg IVPUSH Q6H PRN PRN Reason: Itching Docusate Sodium (Docusate Sodium 100 Mg Capsule) 100 mg PO DAILY PRN PRN Reason: constipation Doxycycline Monohydrate (Doxycycline Monohydrate 100 Mg Capsule) 100 mg PO BID COUNT INCLUDES THE [facility] Last Admin: 06/28/23 12:29 Dose: 100 mg Glucose (Glucose Gel 15 Gm Gel..Gram.) 15 gm PO Q15M PRN; Protocol PRN Reason: per Hypoglycemia Standing Ord. Dextrose (D10) 250 mls @ 750 mls/hr IV Q15M PRN; Protocol PRN Reason: per Hypoglycemia Standing Ord. Insulin Human Lispro (Insulin Lispro 100 Unit/Ml 3 Ml Vial) 0 unit SUBCUT QIDACHS COUNT INCLUDES THE [facility]; Protocol Last Admin: 06/28/23 12:32 Dose: Not Given Isosorbide Mononitrate (Isosorbide Mononitrate 30 Mg Tab.Er.24h) 30 mg PO DAILY COUNT INCLUDES THE [facility]; Protocol Last Admin: 06/27/23 07:42 Dose: Not Given Levetiracetam (Levetiracetam 1,000 Mg Tablet) 1,000 mg PO DAILY COUNT INCLUDES THE [facility] Last Admin: 06/28/23 12:29 Dose: 1,000 mg Losartan Potassium (Losartan Potassium 50 Mg Tablet) 50 mg PO DAILY COUNT INCLUDES THE [facility]; Protocol Last Admin: 06/27/23 07:42 Dose: Not Given Mirtazapine (Mirtazapine 7.5 Mg Tablet) 7.5 mg PO BEDTIME COUNT INCLUDES THE [facility] Last Admin: 06/27/23 21:22 Dose: 7.5 mg Nifedipine (Nifedipine Er 90 Mg Tab.Er.24) 90 mg PO DAILY COUNT INCLUDES THE [facility]; Protocol Last Admin: 06/27/23 07:42 Dose: Not Given Ondansetron HCl (Ondansetron Hcl 4 Mg/2 Ml Vial) 4 mg IVPUSH Q8H PRN PRN Reason: Nausea and Vomiting Last Admin: 06/27/23 17:49 Dose: 4 mg Oxycodone HCl (Oxycodone Hcl Immed Release 5 Mg Tablet) 10 mg PO TID PRN PRN Reason: Pain, Severe (Pain Scale 7-10) Last Admin: 06/28/23 08:47 Dose: 10 mg Senna (Sennosides 8.6 Mg Tablet) 17.2 mg PO BEDTIME PRN PRN Reason: Constipation Sertraline HCl (Sertraline Hcl 25 Mg Tablet) 25 mg PO DAILY COUNT INCLUDES THE [facility] Last Admin: 06/28/23 12:29 Dose: 25 mg Sodium Chloride (0.9 % Sodium Chloride Flush 3 Ml Syringe) 3 ml IVFLUSH QSHIFT COUNT INCLUDES THE [facility] Last Admin: 06/28/23 08:47 Dose: 3 ml Torsemide (Torsemide 20 Mg Tablet) 40 mg PO BID COUNT INCLUDES THE [facility]; Protocol Last Admin: 06/28/23 12:29 Dose: 40 mg Allergies Allergies Allergy/AdvReac Type Severity Reaction Status Date / Time morphine [MORPHINE] Allergy Intermediate Itching Verified 06/24/23 14:18 azithromycin [From Zithromax] Allergy Hives Verified 06/24/23 14:18 gabapentin Allergy Facial Verified 06/24/23 14:18 Swelling tramadol Allergy Facial Verified 06/24/23 14:18 Swelling vancomycin Allergy Anaphylaxis Verified 06/24/23 14:18 Assessment & Plan Assessment & Plan (1) Opioid dependence: Status: Acute Code(s): F11.20 - Opioid dependence, uncomplicated Assessment and Plan: * patient has been prescribed opioid medication for many years--has likely developed a tolerance and based on frequency of admissions and initial dose of medication is probably no longer effective as it once was * buprenorphine may be a good agent for her, however it would necessitate her starting inpatient only because of her ongoing opioid use, a low dose/cross taper would be needed (and she would have to be in agreement) * quality of life and depression (as already noted) are likely exacerbating her sx * no other recs at this time Total time managing care of this patient today ___25_ minutes. [facility] Past Medical History Medical History (Updated 06/28/23 @ 15:18 by Genevieve Rasmussen CNP) Hypertension Anemia ESRD (end stage renal disease) MDD (major depressive disorder), recurrent episode End-stage renal disease (ESRD) Foot ulcer CKD (chronic kidney disease) Hypertension Diabetic foot Vomiting Renal failure Hypertension Hyperkalemia Metabolic acidosis HFrEF (heart failure with reduced ejection fraction) ESRD on dialysis Migraine Diabetic foot ulcer associated with type 2 diabetes mellitus Chronic pain Gastroparesis Non-compliance with renal dialysis Hypertensive emergency Diabetes ESRD needing dialysis Cardiomyopathy delivery delivered Anemia in chronic kidney disease (CKD) CKD (chronic kidney disease) Headache, migraine Abnormal finding on echocardiogram Elevated troponin Chest pain Acute worsening of stage 3 chronic kidney disease Generalized edema Sepsis Cellulitis Pleural effusion CHF (congestive heart failure) (~06/07/22) Tachycardia Atypical chest pain Bone infection PAD (peripheral artery disease) Severe anemia Cellulitis and abscess of foot DM foot ulcer Osteomyelitis test positive test positive Asthma Depression with anxiety Diabetic retinopathy Type 2 diabetes mellitus with hyperglycemia, with long-term current use of insulin Blind right eye Diabetes Back pain Family History Family History Mother Coronary artery disease Myocardial infarction Stroke Diabetes mellitus Father Myocardial infarction Surgical History Surgical History 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 Social History Social History Household Members: Family Household Members Other:: sister Housing: Apartment Do you presently have visiting nurse or other home services: Yes Unable to assess alcohol history related to: Unknown Alcohol intake: never 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 Patient Tobacco Use Status: Never used Tobacco Smoked in Last 30 Days: No e-Cigarette/Vaping Use: Never Used Second Hand Smoke Exposure: No Use of substances other than those prescribed or required for medical reasons: No Currently Displaying Signs/Symptoms of Drug Intoxication Withdrawal: No Have you been hit, kicked, punched, or otherwise hurt by someone within the past year? If so, by whom?: No Is there a partner from a previous relationship who is making you feel unsafe now?: No Are you made to feel afraid or neglected: No Advance Directives: Yes Advance Directives on File: Yes Advance Directives Date on File: 03/08/20 Do you have a plan to hurt others: No Plan Nutrition Risks: No Nutritional Risk Patient : No service: No Current occupational status: unemployed and disabled Gender identity: Female
[2023-06-28] MEDS: hydrALAZINE HCl 20 MG/ML VIAL 10 MG IVPUSH (15:21)
[2023-06-28] MEDS: hydrALAZINE HCl 50 MG TABLET PO (15:21)
[2023-06-28 16:00] VITALS: BP 198/93; PULSE 79; RESP 21; TEMP 36.1; O2SAT 100
[2023-06-28 16:10] LABS: Glucose, Whole Blood 97 mg/dL (60-115)
[2023-06-28 16:15] VITALS: BP 168/80
== END 2023-06-28 17:26 | disposition home health service (06) | DRG 304 ==
LOC: HO.ED 15:02 → HO.EDOVER 17:47 → HO.IMC 06-25 00:49
PROVIDERS: Family Medicine; Physician Assistant; Admitting Provider Physician Assistant; Emergency Provider Student in an Organized Health Care Education/Training Program; PCP Internal Medicine; Visit Provider Student in an Organized Health Care Education/Training Program
DX: I16.0 Hypertensive urgency (principal); N18.6 End stage renal disease; I50.22 Chronic systolic (congestive) heart failure; L97.429 Non-pressure chronic ulcer of left heel and midfoot with unspecified severity; L97.419 Non-pressure chronic ulcer of right heel and midfoot with unspecified severity; J96.11 Chronic respiratory failure with hypoxia; I13.2 Hypertensive heart and chronic kidney disease with heart failure and with stage 5 chronic kidney disease, or end stage renal disease; I42.9 Cardiomyopathy, unspecified; F32.2 Major depressive disorder, single episode, severe without psychotic features; F11.20 Opioid dependence, uncomplicated; I25.10 Atherosclerotic heart disease of native coronary artery without angina pectoris; E11.621 Type 2 diabetes mellitus with foot ulcer; G89.29 Other chronic pain; G40.909 Epilepsy, unspecified, not intractable, without status epilepticus; H54.8 Legal blindness, as defined in USA; E11.22 Type 2 diabetes mellitus with diabetic chronic kidney disease; Z99.2 Dependence on renal dialysis; M54.9 Dorsalgia, unspecified; D63.1 Anemia in chronic kidney disease; E11.42 Type 2 diabetes mellitus with diabetic polyneuropathy; Z99.81 Dependence on supplemental oxygen; Z91.158 Patient's noncompliance with renal dialysis for other reason; Z91.148 Patient's other noncompliance with medication regimen for other reason; Z20.822 Contact with and (suspected) exposure to COVID-19; Z79.899 Other long term (current) drug therapy
CPT/HCPCS: 0241U; 36415; 71045; 80048; 80076; 82803; 82947; 83735; 84100; 84484; 85025; 85027; 90999; 92526; 92610; 92950; 93005; 99285; J0360; J1170; J1200; J2405; S9485

== ENCOUNTER → 2023-06-24 17:39 | Outpatient (BNV) | payer OTHER, SELFPAY | PROVIDERS: Admitting Provider Physician Assistant; Emergency Provider Student in an Organized Health Care Education/Training Program; PCP Internal Medicine; Visit Provider Clinical Nurse Specialist Psychiatric/Mental Health | DX: F11.20 Opioid dependence, uncomplicated (principal) | CPT/HCPCS: 99222; 99232 ==

== ENCOUNTER → 2023-06-24 17:39 | Outpatient (BNV) | payer OTHER, SELFPAY | PROVIDERS: Admitting Provider Physician Assistant; Emergency Provider Student in an Organized Health Care Education/Training Program; PCP Internal Medicine; Visit Provider Internal Medicine | DX: I21.4 Non-ST elevation (NSTEMI) myocardial infarction (principal); R94.31 Abnormal electrocardiogram [ECG] [EKG] | CPT/HCPCS: 93010; 99223 ==

== ENCOUNTER → 2023-06-24 17:39 | Outpatient (BNV) | payer MEDICARE, OTHER, MEDICAID, SELFPAY | PROVIDERS: Admitting Provider Physician Assistant; Emergency Provider Student in an Organized Health Care Education/Training Program; PCP Internal Medicine; Visit Provider Physician Assistant | DX: N18.6 End stage renal disease (principal); F32.2 Major depressive disorder, single episode, severe without psychotic features; I15.0 Renovascular hypertension; D64.9 Anemia, unspecified; Z91.158 Patient's noncompliance with renal dialysis for other reason | CPT/HCPCS: 99223; 99232; 99239; 99499 ==

== ENCOUNTER 2023-07-16 11:00 | Outpatient (REF) | payer OTHER, SELFPAY ==
[2023-07-17 07:25] LABS: Creatinine POC 5.4 mg/dL (0.5-1.4); GFR POC 10
== END 2023-07-16 11:01 | disposition home or self-care (01) ==
LOC: HO.CT 11:00
PROVIDERS: Visit Provider Surgery Vascular Surgery
DX: I73.9 Peripheral vascular disease, unspecified (principal)
CPT/HCPCS: 82565

== ENCOUNTER 2023-08-22 21:17 | Emergency (ER) | payer MEDICARE, MEDICAID, SELFPAY ==
--- NOTE | ~2023-08-22 | XR_ITS ---
EXAMINATION: BILATERAL FEET CLINICAL INFORMATION: Bilateral foot pain COMPARISON: Bilateral feet 06/16/2023 TECHNIQUE: 3 views each foot FINDINGS: Right: Again seen is a transmetatarsal amputation of all 5 digits. There is associated soft tissue along the amputated skin surface. No bony destructive changes are seen to suggest osteomyelitis. No acute fracture or dislocation. No radiopaque foreign body or soft tissue gas. Mild vascular calcification seen. Left: Again seen are chronic bony deformities in the midfoot consistent with underlying neuropathic foot. There has been transmetatarsal amputation of the distal first metatarsal and amputation of the fifth toe phalanges. No acute fracture or dislocation. No acute bony destructive lesions superimposed on the extensive chronic and postoperative changes. XR/XR foot LT min 3V IMPRESSION: 1. No acute finding. 2. Bilateral transmetatarsal amputations. 3. Chronic bony deformities in the left foot consistent with underlying neuropathic foot.
--- NOTE | ~2023-08-22 | XR_ITS ---
EXAMINATION: BILATERAL FEET CLINICAL INFORMATION: Bilateral foot pain COMPARISON: Bilateral feet 06/16/2023 TECHNIQUE: 3 views each foot FINDINGS: Right: Again seen is a transmetatarsal amputation of all 5 digits. There is associated soft tissue along the amputated skin surface. No bony destructive changes are seen to suggest osteomyelitis. No acute fracture or dislocation. No radiopaque foreign body or soft tissue gas. Mild vascular calcification seen. Left: Again seen are chronic bony deformities in the midfoot consistent with underlying neuropathic foot. There has been transmetatarsal amputation of the distal first metatarsal and amputation of the fifth toe phalanges. No acute fracture or dislocation. No acute bony destructive lesions superimposed on the extensive chronic and postoperative changes. XR/XR foot RT min 3V IMPRESSION: 1. No acute finding. 2. Bilateral transmetatarsal amputations. 3. Chronic bony deformities in the left foot consistent with underlying neuropathic foot.
[2023-08-22 21:34] VITALS: BP 190/100; PULSE 108; O2SAT 98
[2023-08-22 21:38] VITALS: BP 197/96; PULSE 104; RESP 18; TEMP 37.4; O2SAT 99; BMI 31.1
[2023-08-22 22:11] LABS: MANUAL DIFF FLAG NO
[2023-08-22 22:17] LABS: Basophils Percent Auto 0.4 % (0-2); Eosinophils Absolute Auto 0.1 X10*3/uL (0.0-0.4); Hematocrit 28.2 % (37.0-47.0); Hemoglobin 9.3 g/dl (12.0-16.0); Imm Gran Abs Auto 0.01 X10*3/uL (0.00-0.03); Imm Gran Pct Auto 0.1 % (0.0-0.4); Lymphocytes Absolute Auto 0.5 X10*3/uL (1.2-4.9); Lymphocytes Percent Auto 6.6 % (20-40); Mean Corpuscular Hemoglobin 32.1 pg (27.0-33.0); Mean Corpuscular Volume 97.2 fL (80.0-98.0); Mean Platelet Volume 12.2 fL (9.4-12.3); Monocytes Absolute Auto 0.8 X10*3/uL (0.1-1.2); Monocytes Percent Auto 11.5 % (2-11); Neutrophils Absolute Auto 5.5 x10*3/uL (2.0-8.3); Neutrophils Percent Auto 80.4 % (45-73); Platelet Count 174 X10*3/uL (160-400); White Blood Count 6.9 X10*3/uL (4.8-10.8)
[2023-08-22 22:30] LABS: Lactic Acid 2.2 mmol/L (0.5-2.0)
[2023-08-22 22:40] LABS: Alanine Aminotransferase 23 U/L (0-31); Albumin Level 3.3 g/dL (3.5-5.0); Alkaline Phosphatase 181 U/L (39-117); Anion Gap 17 (12-20); Aspartate Amino Transferase 22 U/L (5-31); Bilirubin Total 1.1 mg/dL (0.0-1.0); Blood Urea Nitrogen 64 mg/dL (9-16); Calcium 7.1 mg/dL (8.4-10.2); Carbon Dioxide 21 mmol/L (22-29); Chloride 102 mmol/L (96-108); Creatinine Clr Calc Pharmacy 12.6; Estimated Glomerular Filt Rate 7; Glucose Random 181 mg/dL (60-115); Lipase 79 U/L (8-78); Sodium 136 mmol/L (135-145); Total Protein 7.8 g/dL (6.5-8.0)
[2023-08-22 22:46] VITALS: BP 202/108; PULSE 104; RESP 20; TEMP 37.2; O2SAT 96
--- NOTE | 2023-08-22 23:42 | ED_ITS ---
HPI - General Adult General Chief complaint: General Medical Stated complaint: FOOT WOUNDS Time Seen by Provider: 08/22/23 23:42 Source: patient Mode of arrival: EMS Limitations: no limitations History of Present Illness ED Provider: mercedes CARRION narrative: Patient diabetic with chronic wounds in both feet status post metatarsal amputation, end-stage renal disease on dialysis diabetic neuropathy retinopathy legally blind on chronic pain medication oxycodone ran out open pain medication yesterday comes here for ongoing pain both feet ulcers says that has foul- smelling discharge. No fever no chills blood sugars well controlled Related Data Home Medications ?Medication ?Instructions ?Recorded ?Confirmed carvedilol 12.5 mg tablet 12.5 mg PO BID 06/05/23 06/24/23 docusate sodium 100 mg capsule 100 mg PO DAILY PRN constipation 06/05/23 06/24/23 isosorbide mononitrate 30 mg 30 mg PO DAILY 06/05/23 06/24/23 tablet,extended release 24 hr losartan 50 mg tablet 50 mg PO DAILY 06/05/23 06/24/23 torsemide 20 mg tablet 40 mg PO BID 06/05/23 06/24/23 levetiracetam 1,000 mg tablet 1,000 mg PO DAILY 06/17/23 06/24/23 oxycodone 5 mg tablet 5 mg PO TID PRN Pain 06/17/23 06/24/23 Previous Rx's ?Medication ?Instructions ?Recorded off loading boot #1 ea 03/14/23 doxycycline monohydrate 100 mg 100 mg PO BID #14 caps 06/20/23 capsule mirtazapine 7.5 mg tablet 7.5 mg PO BEDTIME #90 tabs 06/20/23 sertraline 25 mg tablet 25 mg PO DAILY #30 tabs 06/27/23 cefpodoxime 200 mg tablet 200 mg PO BID #20 tabs 08/23/23 doxycycline hyclate 100 mg tablet 100 mg PO BID #20 tabs 08/23/23 hydromorphone 4 mg tablet 4 mg PO Q6H PRN pain #14 tabs 08/23/23 (Dilaudid) Allergies Allergy/AdvReac Type Severity Reaction Status Date / Time morphine [MORPHINE] Allergy Intermediate Itching Verified 08/22/23 21:43 azithromycin [From Zithromax] Allergy Hives Verified 08/22/23 21:43 gabapentin Allergy Facial Verified 08/22/23 21:43 Swelling tramadol Allergy Facial Verified 08/22/23 21:43 Swelling vancomycin Allergy Anaphylaxis Verified 08/22/23 21:43 Review of Systems 2 Review of Systems: Yes all other systems are reviewed and are negative [facility] Past Medical History Medical History Major depressive disorder, single episode, severe Non-compliance with renal dialysis Hypertensive urgency MDD (major depressive disorder) Hypertension Anemia ESRD (end stage renal disease) MDD (major depressive disorder), recurrent episode End-stage renal disease (ESRD) Foot ulcer CKD (chronic kidney disease) Hypertension Diabetic foot Vomiting Renal failure Hypertension Hyperkalemia Metabolic acidosis HFrEF (heart failure with reduced ejection fraction) ESRD on dialysis Migraine Diabetic foot ulcer associated with type 2 diabetes mellitus Chronic pain Gastroparesis Non-compliance with renal dialysis Hypertensive emergency Diabetes ESRD needing dialysis Cardiomyopathy delivery delivered Anemia in chronic kidney disease (CKD) CKD (chronic kidney disease) Headache, migraine Abnormal finding on echocardiogram Elevated troponin Chest pain Acute worsening of stage 3 chronic kidney disease Generalized edema Sepsis Cellulitis Pleural effusion CHF (congestive heart failure) (~06/07/22) Tachycardia Atypical chest pain Bone infection PAD (peripheral artery disease) Severe anemia Cellulitis and abscess of foot DM foot ulcer Osteomyelitis test positive test positive Asthma Depression with anxiety Diabetic retinopathy Type 2 diabetes mellitus with hyperglycemia, with long-term current use of insulin Blind right eye Diabetes Back pain Surgical History 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 Family History Family History Mother Coronary artery disease Myocardial infarction Stroke Diabetes mellitus Father Myocardial infarction Social History Social History Household Members: Family Household Members Other:: sister Housing: Apartment Do you presently have visiting nurse or other home services: Yes Unable to assess alcohol history related to: Unknown Alcohol intake: never 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 Patient Tobacco Use Status: Never used Tobacco Smoked in Last 30 Days: No e-Cigarette/Vaping Use: Never Used Second Hand Smoke Exposure: No Advance Directives: Yes Advance Directives on File: Yes Advance Directives Date on File: 03/08/20 Do you have a plan to hurt others: No Plan Patient : No service: No Current occupational status: unemployed and disabled Gender identity: Female Physical Exam ED Vital Signs: Vital Signs - 24 hr 08/22/23 21:38 08/22/23 22:46 Temperature 99.3 F 99.0 F Pulse Rate 104 H 104 H Respiratory Rate 18 20 Blood Pressure 197/96 H 202/108 H Pulse Oximetry 99 96 Oxygen Delivery Method Room Air Room Air BMI result Body Mass Index 31.1 Appearance: Alert. Oriented X3. No acute distress. Eyes: Legally blind ENT: Pharynx normal. Oral Mucosa moist Neck: Normal inspection. Neck supple. CVS: Normal heart rate and rhythm. Pulses normal. Respiratory: No respiratory distress. Equal air entry bilateral, no wheezing/rales/rhonchi Abdomen: Soft and nontender. Bowel sounds are present, no mass palpable, no CVA tenderness Skin: Skin warm and dry. Normal skin color. Normal skin turgor. Extremities: No lower extremity edema. No calf tenderness Neuro: Oriented X 3. No motor deficit. Decreased sensation to light touch and pinprick lower extremity Medications Administered Discontinued Medications Generic Name Dose Route Start Last Admin Trade Name Freq PRN Reason Stop Dose Admin Cephalexin HCl 500 mg 08/22/23 23:54 08/22/23 23:58 Cephalexin 500 Mg Capsule PO 08/22/23 23:55 500 mg ONCE ONE Administration Doxycycline Monohydrate 100 mg 08/22/23 23:54 08/22/23 23:58 Doxycycline Monohydrate 100 Mg Capsule PO 08/22/23 23:55 100 mg ONCE ONE Administration Hydromorphone HCl 4 mg 08/22/23 23:54 08/22/23 23:58 Hydromorphone Hcl 4 Mg Tablet PO 08/22/23 23:55 4 mg ONCE ONE Administration Medical Decision Making Medical Decision Making MDM Narrative: Patient with chronic bilateral feet wounds no pus discharge from the wound no bad odor wounds were cleaned with peroxide and saline iodoform dressing was applied pain medication was given patient advised to follow with wound clinic patient's labs are stable will prescribe her cefpodoxime and doxycycline Differential Diagnosis Differential Diagnoses: The differential diagnosis associated with the presentation includes Diabetic wound/osteomyelitis/cellulitis Admission/Observation Consideration of admission/observation: Escalation of care including admission/observation considered Lab Data MDM Lab Attestation statement: I reviewed the patient's lab results. 08/22/23 22:03 08/22/23 22:03 Labs: Lab Results 08/22/23 Range/Units 22:03 WBC 6.9 (4.8-10.8) X10*3/uL RBC 2.90 L (4.20-5.50) X10*6/uL Hgb 9.3 L (12.0-16.0) g/dl Hct 28.2 L (37.0-47.0) % MCV 97.2 (80.0-98.0) fL MCH 32.1 (27.0-33.0) pg MCHC 33.0 (31.0-35.0) g/dl RDW 16.0 (11.0-16.0) % Plt Count 174 D (160-400) X10*3/uL MPV 12.2 (9.4-12.3) fL Immature Gran % (Auto) 0.1 (0.0-0.4) % Neut % (Auto) 80.4 H (45-73) % Lymph % (Auto) 6.6 L (20-40) % [place] % (Auto) 11.5 H (2-11) % Eos % (Auto) 1.0 (0-4) % Baso % (Auto) 0.4 (0-2) % Lymph # (Auto) 0.5 L (1.2-4.9) X10*3/uL [place] # (Auto) 0.8 (0.1-1.2) X10*3/uL Eos # (Auto) 0.1 (0.0-0.4) X10*3/uL Baso # (Auto) 0.0 (0.0-0.2) X10*3/uL Abs Immat Gran (auto) 0.01 (0.00-0.03) X10*3/uL Absolute Neuts (auto) 5.5 (2.0-8.3) x10*3/uL Absolute Nucleated RBC 0.000 (0.0-0.012) X10*3/uL Nucleated RBC % (auto) 0.0 (0.0-0.2) /100WBC Sodium 136 (135-145) mmol/L Potassium 4.0 (3.3-5.1) mmol/L Chloride 102 (96-108) mmol/L Carbon Dioxide 21 L (22-29) mmol/L Anion Gap 17 (12-20) BUN 64 H (9-16) mg/dL Creatinine 6.92 H* (0.5-1.4) mg/dL Estim Creat Clear Calc 12.6 Estimated GFR 7 Random Glucose 181 H (60-115) mg/dL Lactic Acid 2.2 H* (0.5-2.0) mmol/L Calcium 7.1 L D (8.4-10.2) mg/dL Total Bilirubin 1.1 H (0.0-1.0) mg/dL AST 22 (5-31) U/L ALT 23 (0-31) U/L Alkaline Phosphatase 181 H (39-117) U/L Total Protein 7.8 (6.5-8.0) g/dL Albumin 3.3 L (3.5-5.0) g/dL Lipase 79 H (8-78) U/L Independent Interpretation I performed an independent interpretation of an: Plain X-Ray Radiology Impression Discussion of test interpretation with radiology: I have reviewed the radiologist's reading. Discharge Plan Discharge Clinical Impression: Bilateral diabetic foot ulcer associated with type 1 diabetes mellitus Patient Disposition: Home, Self-Care Instructions: Chronic Wounds (ED) Additional Instructions: Local care as advised Take antibiotic as prescribed Pain medication as prescribed Follow with the wound clinic Prescriptions: New doxycycline hyclate 100 mg tablet 100 mg PO BID Qty: 20 0RF cefpodoxime 200 mg tablet 200 mg PO BID Qty: 20 0RF Rx Instructions: must administer with a meal/food hydromorphone [Dilaudid] 4 mg tablet 4 mg PO Q6H PRN (Reason: pain) Qty: 14 0RF Rx Instructions: Partial Fill upon patient request. No Action (DME) off loading boot Kit See Rx Instructions .Route Qty: 1 0RF Rx Instructions: As directed losartan 50 mg tablet 50 mg PO DAILY carvedilol 12.5 mg tablet 12.5 mg PO BID torsemide 20 mg tablet 40 mg PO BID isosorbide mononitrate 30 mg tablet extended release 24 hr 30 mg PO DAILY docusate sodium 100 mg capsule 100 mg PO DAILY PRN (Reason: constipation) oxycodone 5 mg tablet 5 mg PO TID PRN (Reason: Pain) levetiracetam 1,000 mg tablet 1,000 mg PO DAILY mirtazapine 7.5 mg Tablet 7.5 mg PO BEDTIME Qty: 90 0RF doxycycline monohydrate 100 mg capsule 100 mg PO BID Qty: 14 0RF sertraline 25 mg Tablet 25 mg PO DAILY Qty: 30 0RF Print Language: Belarusian
[2023-08-22] MEDS: cephALEXin 500 MG CAPSULE PO (23:58)
[2023-08-22] MEDS: Doxycycline Monohydrate 100 MG CAPSULE PO (23:58)
[2023-08-23] VITALS: BP 194/106; PULSE 105; RESP 18; TEMP 37.6; O2SAT 96
[2023-08-23 00:10] LABS: Reflex Lactate? Lactic Acid Added
[2023-08-23 00:46] LABS: Cancel Lactic Acid Canceled
--- NOTE | 2023-08-23 00:54 | PC.NURSE ---
pt resting comfortably on stretcher waiting for ambulance transport back home
== END 2023-08-23 01:15 | disposition home or self-care (01) ==
PROVIDERS: Emergency Provider Internal Medicine
DX: L97.429 Non-pressure chronic ulcer of left heel and midfoot with unspecified severity (principal); L97.419 Non-pressure chronic ulcer of right heel and midfoot with unspecified severity; E11.621 Type 2 diabetes mellitus with foot ulcer; E11.22 Type 2 diabetes mellitus with diabetic chronic kidney disease; I13.2 Hypertensive heart and chronic kidney disease with heart failure and with stage 5 chronic kidney disease, or end stage renal disease; I50.20 Unspecified systolic (congestive) heart failure; N18.6 End stage renal disease; Z99.2 Dependence on renal dialysis; Z79.4 Long term (current) use of insulin
CPT/HCPCS: 36415; 73630; 80053; 83605; 83690; 85025; 87040; 99283; 99284

== ENCOUNTER 2023-08-27 17:39 | Inpatient (IN) | payer OTHER, SELFPAY ==
--- NOTE | ~2023-08-27 | MR_ITS ---
EXAMINATION: MRI FOOT WITHOUT CONTRAST, LEFT CLINICAL INFORMATION: Evaluate for osteomyelitis. COMPARISON: X-rays of the left foot 08/27/2023. TECHNIQUE: MRI of the left foot without contrast on a high-field MRI scanner. FINDINGS: There is a persistent and slightly enlarging plantar superficial defect/ulceration along the lateral plantar aspect of the midfoot/forefoot junction at the level of the fourth tarsometatarsal joint. The ulceration measures up to 17 mm transverse and 10 mm craniocaudal. There is no underlying abscess or sinus tract. However, there is heterogeneous abnormal low T1 heterogeneously bright T2 signal in the soft tissues along the plantar aspect of the foot in this area extending to the level of the tarsometatarsal joints as seen previously but slightly more prominent. This is compatible with a combination of cellulitis and fibrosis. As noted previously, there are extensive bone and joint changes consistent with neuropathic arthropathy with resultant bony fragmentation/bone destruction malalignment/joint subluxation and reactive edema involving the navicular, cuneiforms, cuboid and tarsometatarsal joints. The reactive marrow edema crossing the tarsometatarsal joints has increased slightly compared to previously, particularly at the level of the fourth and fifth tarsometatarsal joints. In the forefoot there are persistent bony deformities compatible with postsurgical change with absence of the great toe at the level of the proximal first metatarsal and absence of the fifth toe distal to the level of the metatarsal. Persistent marked deformity of the distal end of the fourth metatarsal unchanged which may reflect a combination of postsurgical change or prior trauma or infection. Arthrosis of the talonavicular joint unchanged. Partially visualized subtalar joints and talocrural joint unremarkable. There is feathery-appearing fluid-like signal along the dorsal subcutaneous soft tissues compatible with edema, cellulitis or combination of these. Fatty infiltration and increased T2 signal throughout the muscles of the foot compatible with denervation myositis unchanged. Plantar fascia intact MR/MR foot LT wo con IMPRESSION: 1. Slight increase in the size of the ulcer along the plantar lateral aspect of the midfoot/forefoot. No underlying abscess or sinus tract. 2. Persistent abnormality of the soft tissues along the plantar aspect of the foot compatible with a combination of cellulitis and fibrosis slightly more prominent compared to previous. 3. Extensive bone and joint changes compatible with neuropathic arthropathy. 4. Postsurgical changes in the forefoot. 5. Marrow changes in the midfoot and proximal forefoot are most consistent with neuropathic arthropathy. No specific findings of osteomyelitis. 6. Persistent deformity of the distal end of the fourth metatarsal which may reflect a combination of postsurgical change or prior trauma or infection. 7. Mild arthrosis of the talonavicular joint unchanged. 8. Mild abnormality in the subcutaneous soft tissues compatible edema, cellulitis or combination of these. 9. Findings in the muscles compatible with denervation myositis unchanged.
--- NOTE | ~2023-08-27 | XR_ITS ---
EXAMINATION: XR FOOT, LEFT CLINICAL INFORMATION: Purulent drainage. Warmth. COMPARISON: 08/22/2023 TECHNIQUE: AP, lateral, and oblique views of the left foot. FINDINGS: Extensive chronic appearing and postoperative changes are again seen. There is chronic amputation of the first mid metatarsal onward. There is amputation of the fourth and fifth toes. Chronic periosteal changes along the fourth metatarsal with chronically dislocated fourth MTP joint space. There is a rocker-bottom deformity to the midfoot with chronic bony deformity and irregularity with underlying sclerotic change. There is grossly similar to the recent prior study. Underlying osteomyelitis in this setting would be difficult to exclude. MRI may be more definitive. There is diffuse soft tissue swelling about the foot which has increased from the prior 08/22/2023 examination. Prominent vascular calcification. XR/XR foot LT 2V IMPRESSION: Extensive chronic appearing and postoperative changes as described. There is a rocker-bottom deformity to the midfoot with chronic bony deformity and irregularity. Underlying osteomyelitis in this setting would be difficult to exclude. MRI may be more definitive. There is increased soft tissue swelling about the foot when compared to the 08/22/2023 examination. Prominent vascular calcification.
[2023-08-27 17:54] VITALS: BP 160/112; PULSE 102; O2SAT 95
[2023-08-27 18:56] VITALS: BP 144/108; PULSE 101; RESP 18; TEMP 37.1; O2SAT 100
[2023-08-27 19:06] VITALS: O2SAT 100
--- NOTE | 2023-08-27 19:09 | ED_ITS ---
HPI - Extremity Problem General Chief complaint: Extremity Injury, Lower Stated complaint: L LEG PAIN. HTN Time Seen by Provider: 08/27/23 18:47 Source: patient Mode of arrival: EMS Limitations: no limitations History of Present Illness ED Provider: mercedes CARRION Narrative: Patient diabetic with end-stage renal disease with peripheral arterial disease with Bilateral foot pain from nonhealing ulcer was seen here on 08/21 and prescribed antibiotics which she unable to fill it comes here as pain is continuing more on the left side with local warmth feeling and foul-smelling discharge from the left wound Related Data Home Medications ?Medication ?Instructions ?Recorded ?Confirmed carvedilol 12.5 mg tablet 12.5 mg PO BID 06/05/23 08/28/23 docusate sodium 100 mg capsule 100 mg PO DAILY PRN constipation 06/05/23 08/28/23 isosorbide mononitrate 30 mg 30 mg PO DAILY 06/05/23 08/28/23 tablet,extended release 24 hr torsemide 20 mg tablet 40 mg PO BID 06/05/23 08/28/23 levetiracetam 1,000 mg tablet 1,000 mg PO DAILY 06/17/23 08/28/23 oxycodone 5 mg tablet 5 mg PO TID PRN Pain 06/17/23 08/28/23 calcium carbonate (Calcium Antacid) 1 tab PO TIDWM 08/28/23 08/28/23 cholecalciferol (vitamin D3) 50 50 mcg PO DAILY 08/28/23 08/28/23 mcg (2,000 unit) capsule omeprazole 20 mg capsule,delayed 20 mg PO DAILY 08/28/23 08/28/23 release Previous Rx's ?Medication ?Instructions ?Recorded off loading boot #1 ea 03/14/23 mirtazapine 7.5 mg tablet 7.5 mg PO BEDTIME #90 tabs 06/20/23 sertraline 25 mg tablet 25 mg PO DAILY #30 tabs 06/27/23 Allergies Allergy/AdvReac Type Severity Reaction Status Date / Time morphine [MORPHINE] Allergy Intermediate Itching Verified 08/27/23 19:17 azithromycin [From Zithromax] Allergy Hives Verified 08/27/23 19:17 gabapentin Allergy Facial Verified 08/27/23 19:17 Swelling tramadol Allergy Facial Verified 08/27/23 19:17 Swelling vancomycin Allergy Anaphylaxis Verified 08/27/23 19:17 Review of Systems 2 Review of Systems: Yes all other systems are reviewed and are negative [facility] Past Medical History Medical History Major depressive disorder, single episode, severe Non-compliance with renal dialysis Hypertensive urgency MDD (major depressive disorder) Hypertension Anemia ESRD (end stage renal disease) MDD (major depressive disorder), recurrent episode End-stage renal disease (ESRD) Foot ulcer CKD (chronic kidney disease) Hypertension Diabetic foot Vomiting Renal failure Hypertension Hyperkalemia Metabolic acidosis HFrEF (heart failure with reduced ejection fraction) ESRD on dialysis Migraine Diabetic foot ulcer associated with type 2 diabetes mellitus Chronic pain Gastroparesis Non-compliance with renal dialysis Hypertensive emergency Diabetes ESRD needing dialysis Cardiomyopathy delivery delivered Anemia in chronic kidney disease (CKD) CKD (chronic kidney disease) Headache, migraine Abnormal finding on echocardiogram Elevated troponin Chest pain Acute worsening of stage 3 chronic kidney disease Generalized edema Sepsis Cellulitis Pleural effusion CHF (congestive heart failure) (~06/07/22) Tachycardia Atypical chest pain Bone infection PAD (peripheral artery disease) Severe anemia Cellulitis and abscess of foot DM foot ulcer Osteomyelitis test positive test positive Asthma Depression with anxiety Diabetic retinopathy Type 2 diabetes mellitus with hyperglycemia, with long-term current use of insulin Blind right eye Diabetes Back pain Surgical History 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 Family History Family History Mother Coronary artery disease Myocardial infarction Stroke Diabetes mellitus Father Myocardial infarction Social History Social History Household Members: Family Household Members Other:: sister Housing: Apartment Do you presently have visiting nurse or other home services: Yes Unable to assess alcohol history related to: Unknown Alcohol intake: never 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 Patient Tobacco Use Status: Never used Tobacco e-Cigarette/Vaping Use: Never Used Second Hand Smoke Exposure: No Use of substances other than those prescribed or required for medical reasons: No Currently Displaying Signs/Symptoms of Drug Intoxication Withdrawal: No Have you been hit, kicked, punched, or otherwise hurt by someone within the past year? If so, by whom?: No Do you feel safe in your current relationship?: Yes Is there a partner from a previous relationship who is making you feel unsafe now?: No Are you made to feel afraid or neglected: No Advance Directives: Yes Advance Directives Information Provided: Yes Advance Directives on File: Yes Advance Directives Date on File: 03/08/20 Do you have a plan to hurt others: No Plan Recently lost weight without trying: No Nutrition Risks: No Nutritional Risk Patient : No : No Poor oral hygiene: No service: No Current occupational status: unemployed and disabled Gender identity: Female Physical Exam 2 Vital Signs: Vital Signs: Last Vital Signs Temp 97.8 F 08/28/23 15:37 Pulse 81 08/28/23 15:37 Resp 18 08/28/23 16:18 BP 177/94 H 08/28/23 15:37 Pulse Ox 99 08/28/23 15:37 O2 Del Method Nasal Cannula 08/28/23 15:37 O2 Flow Rate 3.0 08/28/23 11:02 Oxygen Flow Rate 3 08/27/23 19:13 BMI result Body Mass Index 29.0 Appearance: Alert. Oriented X3. No acute distress. Eyes: Blind ENT: Pharynx normal. Oral Mucosa moist Neck: Normal inspection. Neck supple. CVS: Normal heart rate and rhythm. Pulses normal. Respiratory: No respiratory distress. Equal air entry bilateral, no wheezing/rales/rhonchi prolonged expiration Abdomen: Soft and nontender. Bowel sounds are present, no mass palpable, Skin: Skin warm and dry. Normal skin color. Normal skin turgor. Extremities: No lower extremity edema. Bilateral empty metatarsal amputation No calf tenderness left leg local warmth in the crews area nonhealing wounds both feet in the picture as described Neuro: Alert and awake legally blind Medications Administered Generic Name Dose Route Start Last Admin Trade Name Freq PRN Reason Stop Dose Admin Diphenhydramine HCl 25 mg 08/28/23 14:49 08/28/23 16:17 Diphenhydramine Hcl 50 Mg/Ml Vial IVPUSH 25 mg Q6H PRN Administration Itching Heparin Sodium (Porcine) 5,000 unit 08/27/23 22:15 08/28/23 11:10 Heparin Sodium,Porcine 5,000 Unit/Ml Vial SUBCUT Not Given Q12H [facility] Hydromorphone HCl 0.5 mg 08/28/23 14:49 08/28/23 16:18 Hydromorphone Hcl 0.5 Mg/0.5 Ml Syringe IVPUSH 0.5 mg Q4H PRN Administration Pain, Severe (Pain Scale 7-10) Protocol Doxycycline Hyclate 100 mg/ 250 mls @ 166.67 mls/hr 08/27/23 22:15 08/28/23 13:45 Sodium Chloride IV Infused Q12H [facility] Infusion Piperacillin Sod/Tazobactam 100 mls @ 200 mls/hr 08/27/23 22:15 08/28/23 11:50 Sod 4.5 gm/ Sodium Chloride IV Infused Q12H [facility] Infusion Insulin Human Lispro 0 unit 08/28/23 07:30 08/28/23 16:28 Insulin Lispro 100 Unit/Ml 3 Ml Vial SUBCUT Not Given QIDACHS [facility] Protocol Ondansetron HCl 4 mg 08/27/23 23:52 08/28/23 00:49 Ondansetron Hcl 4 Mg/2 Ml Vial IVPUSH 4 mg Q4H PRN Administration Nausea and Vomiting Sodium Chloride 3 ml 08/28/23 00:00 08/28/23 16:17 0.9 % Sodium Chloride Flush 3 Ml Syringe IVFLUSH 3 ml QSHIFT [facility] Administration Discontinued Medications Generic Name Dose Route Start Last Admin Trade Name Freq PRN Reason Stop Dose Admin Diphenhydramine HCl 25 mg 08/28/23 03:27 08/28/23 04:56 Diphenhydramine Hcl 25 Mg Capsule PO 08/28/23 03:28 25 mg ONCE ONE Administration Hydromorphone HCl 4 mg 08/27/23 18:48 08/27/23 19:19 Hydromorphone Hcl 4 Mg Tablet PO 08/27/23 18:49 4 mg ONCE ONE Administration Hydromorphone HCl 4 mg 08/27/23 22:04 08/28/23 11:18 Hydromorphone Hcl 4 Mg Tablet PO 4 mg Q6H PRN Administration Pain, Severe (Pain Scale 7-10) Piperacillin Sod/Tazobactam 50 mls @ 100 mls/hr 08/27/23 21:29 08/27/23 22:10 Sod 3.375 gm/ Sodium Chloride IV 08/27/23 21:58 Infused ONCE ONE Infusion Medical Decision Making Medical Decision Making [facility] Narrative: Patient with chronic nonhealing diabetic ulcers in both feet foul-smelling on the plantar ulcer on the left side been here multiple times for same in local examination patient does have warmth feeling on the left foot will admit patient for infected diabetic foot ulcer x-ray negative for bony erosion will start on IV antibiotics Differential Diagnosis Differential Diagnoses: The differential diagnosis associated with the presentation includes Osteomyelitis/nonhealing diabetic ulcers Admission/Observation Consideration of admission/observation: Escalation of care including admission/observation considered Consult Healthcare Provider Management of the patient was discussed with: Hospitalist Lab Data [facility] Lab Attestation statement: I reviewed the patient's lab results. 08/27/23 20:04 08/27/23 20:04 Labs: Lab Results 08/27/23 08/27/23 Range/Units 20:03 20:04 WBC 7.5 (4.8-10.8) X10*3/uL RBC 2.64 L (4.20-5.50) X10*6/uL Hgb 8.2 L (12.0-16.0) g/dl Hct 25.8 L (37.0-47.0) % MCV 97.7 (80.0-98.0) fL MCH 31.1 (27.0-33.0) pg MCHC 31.8 (31.0-35.0) g/dl RDW 15.8 (11.0-16.0) % Plt Count 150 L (160-400) X10*3/uL MPV 11.7 (9.4-12.3) fL Immature Gran % (Auto) 0.4 (0.0-0.4) % Neut % (Auto) 84.5 H (45-73) % Lymph % (Auto) 5.2 L (20-40) % [place] % (Auto) 8.1 (2-11) % Eos % (Auto) 1.5 (0-4) % Baso % (Auto) 0.3 (0-2) % Lymph # (Auto) 0.4 L (1.2-4.9) X10*3/uL [place] # (Auto) 0.6 (0.1-1.2) X10*3/uL Eos # (Auto) 0.1 (0.0-0.4) X10*3/uL Baso # (Auto) 0.0 (0.0-0.2) X10*3/uL Abs Immat Gran (auto) 0.03 (0.00-0.03) X10*3/uL Absolute Neuts (auto) 6.4 (2.0-8.3) x10*3/uL Absolute Nucleated RBC 0.000 (0.0-0.012) X10*3/uL Nucleated RBC % (auto) 0.0 (0.0-0.2) /100WBC ESR 108 H (0-20) MM/HR Sodium 136 (135-145) mmol/L Potassium 4.8 (3.3-5.1) mmol/L Chloride 104 (96-108) mmol/L Carbon Dioxide 20 L (22-29) mmol/L Anion Gap 17 (12-20) BUN 61 H (9-16) mg/dL Creatinine 6.93 H* (0.5-1.4) mg/dL Estim Creat Clear Calc 12.2 Estimated GFR 7 Random Glucose 130 H (60-115) mg/dL Lactic Acid 1.1 (0.5-2.0) mmol/L Calcium 7.9 L D (8.4-10.2) mg/dL Total Bilirubin 1.3 H (0.0-1.0) mg/dL AST 21 (5-31) U/L ALT 16 (0-31) U/L Alkaline Phosphatase 209 H (39-117) U/L Total Protein 6.9 (6.5-8.0) g/dL Albumin 2.8 L (3.5-5.0) g/dL Independent Interpretation I performed an independent interpretation of an: Plain X-Ray Radiology Impression Discussion of test interpretation with radiology: I have reviewed the radiologist's reading. Procedures EJ/Peripheral Line Arm R: Time Out Performed: Yes Skin Cleansed in Sterile Fashion: Yes Size (gauge): 20 IV Secured and Dressing Applied: Yes Patient Tolerated Procedure: well Discharge Plan Discharge Clinical Impression: Cellulitis, Chronic ulcer of left foot due to diabetes mellitus Foot ulcer Qualifiers: Laterality: left Non-pressure ulcer stage: with other severity Qualified Code(s): L97.528 - Non-pressure chronic ulcer of other part of left foot with other specified severity Patient Disposition: Admitted As Inpatient Interventions: Admission Worksheet (ED) Last Done: 08/28/23 08:58 Discharge Date/Time: 08/28/23 09:22
[2023-08-27 19:13] VITALS: BP 144/108; PULSE 101; RESP 18; TEMP 37.1; O2SAT 100; BMI 29.0
--- NOTE | 2023-08-27 19:22 | PC.NURSE ---
Pt ca&ox3, no signs of acute distress. Pt reporting 10/10 bilateral leg pain. This RN verified with patient 3x that she does not have an allergy to Dilaudid/Hydromorphone. Per pt has taken this med before w/o a reaction. Pt medicated per apr. Plan of care ongoing.
--- NOTE | 2023-08-27 19:27 | PC.NURSE ---
This RN assumed pt care @ 1900. Plan of care ongoing.
[2023-08-27 20:06] VITALS: BP 173/94; PULSE 97; RESP 16; TEMP 37.7; O2SAT 96
[2023-08-27 20:09] LABS: MANUAL DIFF FLAG NO
[2023-08-27 20:10] LABS: Basophils Percent Auto 0.3 % (0-2); Eosinophils Absolute Auto 0.1 X10*3/uL (0.0-0.4); Eosinophils Percent Auto 1.5 % (0-4); Hematocrit 25.8 % (37.0-47.0); Hemoglobin 8.2 g/dl (12.0-16.0); Imm Gran Abs Auto 0.03 X10*3/uL (0.00-0.03); Imm Gran Pct Auto 0.4 % (0.0-0.4); Lymphocytes Absolute Auto 0.4 X10*3/uL (1.2-4.9); Lymphocytes Percent Auto 5.2 % (20-40); Mean Corpuscular HGB Conc 31.8 g/dl (31.0-35.0); Mean Corpuscular Hemoglobin 31.1 pg (27.0-33.0); Mean Corpuscular Volume 97.7 fL (80.0-98.0); Mean Platelet Volume 11.7 fL (9.4-12.3); Monocytes Absolute Auto 0.6 X10*3/uL (0.1-1.2); Monocytes Percent Auto 8.1 % (2-11); Neutrophils Absolute Auto 6.4 x10*3/uL (2.0-8.3); Neutrophils Percent Auto 84.5 % (45-73); Platelet Count 150 X10*3/uL (160-400); Red Blood Count 2.64 X10*6/uL (4.20-5.50); Red Cell Distribution Width 15.8 % (11.0-16.0); White Blood Count 7.5 X10*3/uL (4.8-10.8)
--- NOTE | 2023-08-27 20:18 | MHC.EDTECH ---
Patient biba from home ,vitals taken ,blood drawn including both sets of blood culture and lactic acid ,Patient drank 480 ml water .
[2023-08-27 20:30] LABS: Lactic Acid 1.1 mmol/L (0.5-2.0)
[2023-08-27 20:37] LABS: Creatinine Clr Calc Pharmacy 12.2; Estimated Glomerular Filt Rate 7
[2023-08-27 20:38] LABS: Alanine Aminotransferase 16 U/L (0-31); Albumin Level 2.8 g/dL (3.5-5.0); Alkaline Phosphatase 209 U/L (39-117); Anion Gap 17 (12-20); Aspartate Amino Transferase 21 U/L (5-31); Bilirubin Total 1.3 mg/dL (0.0-1.0); Blood Urea Nitrogen 61 mg/dL (9-16); Calcium 7.9 mg/dL (8.4-10.2); Carbon Dioxide 20 mmol/L (22-29); Chloride 104 mmol/L (96-108); Glucose Random 130 mg/dL (60-115); Potassium 4.8 mmol/L (3.3-5.1); Sodium 136 mmol/L (135-145); Total Protein 6.9 g/dL (6.5-8.0)
[2023-08-27 20:53] LABS: Erythrocyte Sedimentation Rate 108 MM/HR (0-20)
[2023-08-27 21:33] VITALS: BP 166/95; PULSE 95; RESP 17; TEMP 36.7; O2SAT 97
[2023-08-27] MEDS: Piperacillin Sodium/Tazobactam 3.375 GM in 0.9 % Sodium Chloride 50 ML IV (21:35)
--- NOTE | 2023-08-27 21:55 | PM.IMHP ---
History of Present Illness Date of Service: 08/27/23 Chief Complaint: Foot pain This is a 32-year-old female with pertinent history of ESRD on hemodialysis, 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, peripheral arterial disease status post bilateral TMA, poorly controlled hypertension due to noncompliance with medications, chronic hypoxic respiratory failure on 4 L baseline supplemental oxygen, congestive heart failure with reduced ejection fraction, mood disorder, chronic pain with opioid seeking behavior, cardiomyopathy who presents to the emergency department for evaluation of foot infection. Patient was seen in the ER on 08/21 and was prescribed p.o. antibiotics for concerns of left foot infection. Patient did not fill the antibiotics. States her pain is worsening and is associated with warmth and purulent drainage. She has nonhealing diabetic foot wound. Denies fever, chills, chest discomfort, palpitations, shortness of breath, abdominal pain, changes in urinary or bowel habits. She only wants pain medications for her foot pain. In the emergency department, patient was given empiric IV antibiotics and po opioids. Review of Systems Constitutional: Constitutional: Reports no additional constitutional complaints Cardiovascular: Cardiovascular: Reports no additional cardiovascular complaints Respiratory: Respiratory: Reports no additional respiratory complaints Gastrointestinal: Gastrointestinal: Reports no additional gastrointestinal complaints Genitourinary: Genitourinary: Reports no additional female genitourinary complaints Musculoskeletal: Musculoskeletal: Reports arthralgias and Reports joint swelling [facility] Medical History Major depressive disorder, single episode, severe Non-compliance with renal dialysis Hypertensive urgency MDD (major depressive disorder) Hypertension Anemia ESRD (end stage renal disease) MDD (major depressive disorder), recurrent episode End-stage renal disease (ESRD) Foot ulcer CKD (chronic kidney disease) Hypertension Diabetic foot Vomiting Renal failure Hypertension Hyperkalemia Metabolic acidosis HFrEF (heart failure with reduced ejection fraction) ESRD on dialysis Migraine Diabetic foot ulcer associated with type 2 diabetes mellitus Chronic pain Gastroparesis Non-compliance with renal dialysis Hypertensive emergency Diabetes ESRD needing dialysis Cardiomyopathy delivery delivered Anemia in chronic kidney disease (CKD) CKD (chronic kidney disease) Headache, migraine Abnormal finding on echocardiogram Elevated troponin Chest pain Acute worsening of stage 3 chronic kidney disease Generalized edema Sepsis Cellulitis Pleural effusion CHF (congestive heart failure) (~06/07/22) Tachycardia Atypical chest pain Bone infection PAD (peripheral artery disease) Severe anemia Cellulitis and abscess of foot DM foot ulcer Osteomyelitis test positive test positive Asthma Depression with anxiety Diabetic retinopathy Type 2 diabetes mellitus with hyperglycemia, with long-term current use of insulin Blind right eye Diabetes Back pain Family History Mother Coronary artery disease Myocardial infarction Stroke Diabetes mellitus Father Myocardial infarction Surgical History 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 Social History Household Members: Family Household Members Other:: sister Housing: Apartment Do you presently have visiting nurse or other home services: Yes Unable to assess alcohol history related to: Unknown Alcohol intake: never 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 Patient Tobacco Use Status: Never used Tobacco e-Cigarette/Vaping Use: Never Used Second Hand Smoke Exposure: No Advance Directives: Yes Advance Directives on File: Yes Advance Directives Date on File: 03/08/20 Do you have a plan to hurt others: No Plan service: No Current occupational status: unemployed and disabled Gender identity: Female Meds Allergies Allergy/AdvReac Type Severity Reaction Status Date / Time morphine [MORPHINE] Allergy Intermediate Itching Verified 08/27/23 19:17 azithromycin [From Zithromax] Allergy Hives Verified 08/27/23 19:17 gabapentin Allergy Facial Verified 08/27/23 19:17 Swelling tramadol Allergy Facial Verified 08/27/23 19:17 Swelling vancomycin Allergy Anaphylaxis Verified 08/27/23 19:17 Active Medications: Current Medications Piperacillin Sod/Tazobactam (Sod 3.375 gm/ Sodium Chloride) 50 mls @ 100 mls/hr IV ONCE ONE Stop: 08/27/23 21:58 Last Admin: 08/27/23 21:35 Dose: 100 mls/hr Home Medications ?Medication ?Instructions ?Recorded ?Confirmed ?Last Taken ?Type carvedilol 12.5 mg tablet 12.5 mg PO BID 06/05/23 06/24/23 06/16/23 History docusate sodium 100 mg capsule 100 mg PO DAILY PRN constipation 06/05/23 06/24/23 Unknown History isosorbide mononitrate 30 mg 30 mg PO DAILY 06/05/23 06/24/23 06/16/23 History tablet,extended release 24 hr losartan 50 mg tablet 50 mg PO DAILY 06/05/23 06/24/23 06/16/23 History torsemide 20 mg tablet 40 mg PO BID 06/05/23 06/24/23 06/16/23 History levetiracetam 1,000 mg tablet 1,000 mg PO DAILY 06/17/23 06/24/23 06/16/23 History oxycodone 5 mg tablet 5 mg PO TID PRN Pain 06/17/23 06/24/23 Unknown History Physical Exam Vital Signs and Narrative: Vital Signs: Last Vital Signs Temp 98.0 F 08/27/23 21:33 Pulse 95 08/27/23 21:33 Resp 17 08/27/23 21:33 BP 166/95 H 08/27/23 21:33 Pulse Ox 97 08/27/23 21:33 O2 Del Method Room Air 08/27/23 21:33 O2 Flow Rate 3 08/27/23 20:06 Oxygen Flow Rate 3 08/27/23 19:13 BMI result Body Mass Index 29.0 Middle-aged female lying in bed in no distress Neck supple, no JVD Regular rate and rhythm, S1-S2 heard Regular breath sounds bilaterally, no wheezing or crackles appreciated Abdomen soft nontender, no guarding, no rigidity Patient is awake, alert and oriented to place and time ; no focal motor deficit Psych: Normal mood Bilateral TMA ; left foot with warmth,, purulent drainage and nonhealing wounds as pictured below Skin: Other: Results Labs 08/27/23 20:04 08/27/23 20:04 Labs: Laboratory Results - last 24 hr 08/27/23 08/27/23 20:03 20:04 MCV 97.7 MCH 31.1 MCHC 31.8 RDW 15.8 Plt Count 150 L MPV 11.7 Immature Gran % (Auto) 0.4 Neut % (Auto) 84.5 H Lymph % (Auto) 5.2 L Wilcox % (Auto) 8.1 Eos % (Auto) 1.5 Baso % (Auto) 0.3 Lymph # (Auto) 0.4 L Wilcox # (Auto) 0.6 Eos # (Auto) 0.1 Baso # (Auto) 0.0 Abs Immat Gran (auto) 0.03 Absolute Neuts (auto) 6.4 Absolute Nucleated RBC 0.000 Nucleated RBC % (auto) 0.0 ESR 108 H Anion Gap 17 Estim Creat Clear Calc 12.2 Estimated GFR 7 Random Glucose 130 H Lactic Acid 1.1 Calcium 7.9 L D Total Bilirubin 1.3 H AST 21 ALT 16 Alkaline Phosphatase 209 H Total Protein 6.9 Albumin 2.8 L Assessment and Plan (1) Diabetic foot infection: Status: Acute (2) Cellulitis: Status: Acute (3) Foot ulcer: Qualifiers: Laterality: left Non-pressure ulcer stage: with other severity Qualified Code(s): L97.528 - Non-pressure chronic ulcer of other part of left foot with other specified severity Status: Acute Plan This is a 32-year-old female with pertinent history of ESRD on hemodialysis, 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, peripheral arterial disease status post bilateral TMA, poorly controlled hypertension due to noncompliance with medications, chronic hypoxic respiratory failure on 4 L baseline supplemental oxygen, congestive heart failure with reduced ejection fraction, mood disorder, chronic pain with opioid seeking behavior, cardiomyopathy who presents to the emergency department for evaluation of foot infection. #. Diabetic foot infection with nonhealing ulcers and purulent cellulitis: Noncompliant with p.o. antibiotics outpatient. Initiating empiric IV antibiotics. Consulting General surgery and obtaining x-ray. #. ESRD on hemodialysis: Consulting nephrology #. Mvd-kgaufor-oxyrasfbs diabetes mellitus: Initiating Accu-Cheks with sliding scale insulin #. Mood disorder: On sertraline #. Congestive heart failure with reduced ejection fraction with chronic hypoxia: On hemodialysis and torsemide, beta-mohamud. On baseline 4 L supplemental oxygen #. CAD/cardiomyopathy: On aspirin, Imdur and beta-mohamud #. Chronic pain with opioid seeking behavior: On p.o. opioids. Will avoid IV Dilaudid as much as possible #. Poorly controlled hypertension due to medication noncompliance: Resume home antihypertensives #. Chronic anemia of kidney disease Med rec pending DVT prophylaxis: Heparin Full code Admit as inpatient and will require two night minimum hospital stay for IV antibiotics (as above), which is not possible in a lesser acute setting. Quality Stroke Does the patient have a stroke diagnosis?: No VTE Prior VTE?: No VTE Risk Level:: Medical - moderate - high VTE Device Contraindication: Treatment Not Indicated VTE Drug Contraindication: N/A - Med Ordered
--- NOTE | 2023-08-27 23:14 | PC.NURSE ---
Pt refused heparin. Plan of care ongoing.
[2023-08-27] MEDS: Piperacillin Sodium/Tazobactam 4.5 GM in 0.9 % Sodium Chloride 100 ML IV (23:15)
--- NOTE | 2023-08-27 23:22 | PC.NURSE ---
Pt reporting nausea, itchiness, and 10/[address] Sewell notified and aware. Order for chandra entered Plan of care ongoing.
[2023-08-27] MEDS: Doxycycline Hyclate 100 MG in 0.9 % Sodium Chloride 250 ML 166.67 MG IV (23:53)
[2023-08-28] VITALS (7 sets, daily range): BP systolic 139–187; BP diastolic 79–105; PULSE 79–87; RESP 16–19; TEMP 36–36.9; O2SAT 94–100; BMI 30.4
--- NOTE | 2023-08-28 00:43 | MHC.EDTECH ---
0000 ROUNDING DONE ,VITALS TAKEN ,RN HUMBERTO AWARE OF PATIENT HIGH BLOOD PRESSURE ,PATIENT BELONGINGS LIST DONE ,PATIENT REFUSED TO CHANGE INTO HOSPITAL [facility] KO AWARE .
[2023-08-28] MEDS: ondansetron HCL 4 MG/2 ML VIAL IVPUSH (00:49)
--- NOTE | 2023-08-28 00:50 | PC.NURSE ---
Pt medicated per apr. Plan of care ongoing.
--- NOTE | 2023-08-28 03:19 | PC.NURSE ---
Pt requested and given a pitcher of water. Plan of care ongoing.
[2023-08-28] MEDS: diphenhydrAMINE HCL 25 MG CAPSULE PO (04:56)
--- NOTE | 2023-08-28 04:57 | PC.NURSE ---
Pt requesting previously refused benadryl. Pt medicated per apr. Plan of care ongoing.
[2023-08-28 07:29] LABS: Glucose, Whole Blood 88 mg/dL (60-115)
[2023-08-28] MEDS: Piperacillin Sodium/Tazobactam 4.5 GM in 0.9 % Sodium Chloride 100 ML IV ×2 (11:08→20:41)
[2023-08-28 11:30] LABS: Glucose, Whole Blood 103 mg/dL (60-115)
[2023-08-28] MEDS: Doxycycline Hyclate 100 MG in 0.9 % Sodium Chloride 250 ML 166.67 MG IV ×2 (11:46→20:41)
--- NOTE | 2023-08-28 12:06 | PHA.MEDREC ---
Pharmacy Consult ? Medication Reconciliation Pharmacy has completed the medication reconciliation. technical clerk Desiree tried to talk to patient but she was uncoorperative. She said we should have her med list from record or call [facility] on [address] and refused to confirm any med verbally with us. Called [facility] and was able to confirm torsemide, calcium antacid oxycodone and vitamin D3. Last fill date for carvedilol, isosorbide and levetiracetam was 06/13/23 at [facility] for 30 day supply. Since patient seems to be nonadherent (from previous visits' notes), it is possible that she is still on these medications. Mirtazapine and sertraline were mentioned in discharge packet from 06/28/23 but there was no pharmacy claim for it. Losartan was last fill at [facility] on 02/14/23 for 30 day supply.
--- NOTE | 2023-08-28 12:47 | MHC.CM.PN ---
IMM DELIVERED PT IS LEGALLY BLIND, ATTENDS HD AT [facility] T-TH- SAT AN SISTER TRANSPORTS. PT LIVES WITH SISTER WHO IS ALSO HER MANAGER ZONE. + HCP PCP DR. CHATMAN AT [facility]. PT USES W/C FOR MAJOR MOBILITY. HOME 02 VIA [facility]. DP: HOME WITH RESUMPTION OF MANAGER ZONE ASSIST IS THE GOAL. SISTER WILL TRANSPORT. CM WILL CONTINUE TO FOLLOW FOR ANY CHANGE TO DC PLAN/NEEDS
--- NOTE | 2023-08-28 13:01 | P.CONGS_ITS ---
History of Present Illness Consult details Consult date: 08/28/23 Requesting physician: Tawny Taylor Narrative: 33-year-old female patient with a history of peripheral vascular disease presenting to the ED for left foot pain. She was admitted to the hospitalist service for further management. Her past history is significant for end-stage renal disease on hemodialysis, cys-[id number]-ehnugwaxk diabetes mellitus, diabetic polyneuropathy, diabetic retinopathy with legal blindness, peripheral artery disease status post right transmetatarsal amputation and left toe amputations. She was previously treated with oral antibiotics for the left foot pain but reported increased pain. She was subsequently admitted to the hospitalist service and started on IV antibiotic. MRI was performed today which revealed soft tissue swelling and postoperative changes however no evidence of osteomyelitis. Review of Systems 2 Review of Systems: Yes all other systems are reviewed and are negative Eyes: Eyes: Reports loss of vision Integumentary/Breasts: Skin/Breast: Reports non-healing lesions and Reports skin ulcer Neurologic: Reports loss of vision PMFSH Past Medical History Medical History Major depressive disorder, single episode, severe Non-compliance with renal dialysis Hypertensive urgency MDD (major depressive disorder) Hypertension Anemia ESRD (end stage renal disease) MDD (major depressive disorder), recurrent episode End-stage renal disease (ESRD) Foot ulcer CKD (chronic kidney disease) Hypertension Diabetic foot Vomiting Renal failure Hypertension Hyperkalemia Metabolic acidosis HFrEF (heart failure with reduced ejection fraction) ESRD on dialysis Migraine Diabetic foot ulcer associated with type 2 diabetes mellitus Chronic pain Gastroparesis Non-compliance with renal dialysis Hypertensive emergency Diabetes ESRD needing dialysis Cardiomyopathy delivery delivered Anemia in chronic kidney disease (CKD) CKD (chronic kidney disease) Headache, migraine Abnormal finding on echocardiogram Elevated troponin Chest pain Acute worsening of stage 3 chronic kidney disease Generalized edema Sepsis Cellulitis Pleural effusion CHF (congestive heart failure) (~06/07/22) Tachycardia Atypical chest pain Bone infection PAD (peripheral artery disease) Severe anemia Cellulitis and abscess of foot DM foot ulcer Osteomyelitis test positive test positive Asthma Depression with anxiety Diabetic retinopathy Type 2 diabetes mellitus with hyperglycemia, with long-term current use of insulin Blind right eye Diabetes Back pain Family History Family History Mother Coronary artery disease Myocardial infarction Stroke Diabetes mellitus Father Myocardial infarction Surgical History Surgical History 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 Social History Social History Household Members: Family Household Members Other:: sister Housing: Apartment Do you presently have visiting nurse or other home services: Yes Unable to assess alcohol history related to: Unknown Alcohol intake: never 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 Patient Tobacco Use Status: Never used Tobacco e-Cigarette/Vaping Use: Never Used Second Hand Smoke Exposure: No Use of substances other than those prescribed or required for medical reasons: No Currently Displaying Signs/Symptoms of Drug Intoxication Withdrawal: No Have you been hit, kicked, punched, or otherwise hurt by someone within the past year? If so, by whom?: No Do you feel safe in your current relationship?: Yes Is there a partner from a previous relationship who is making you feel unsafe now?: No Are you made to feel afraid or neglected: No Advance Directives: Yes Advance Directives Information Provided: Yes Advance Directives on File: Yes Advance Directives Date on File: 03/08/20 Do you have a plan to hurt others: No Plan Recently lost weight without trying: No Nutrition Risks: No Nutritional Risk Patient : No : No Poor oral hygiene: No service: No Current occupational status: unemployed and disabled Gender identity: Female Meds Allergies Allergy/AdvReac Type Severity Reaction Status Date / Time morphine [MORPHINE] Allergy Intermediate Itching Verified 08/27/23 19:17 azithromycin [From Zithromax] Allergy Hives Verified 08/27/23 19:17 gabapentin Allergy Facial Verified 08/27/23 19:17 Swelling tramadol Allergy Facial Verified 08/27/23 19:17 Swelling vancomycin Allergy Anaphylaxis Verified 08/27/23 19:17 Active Medications: Current Medications Acetaminophen (Acetaminophen 325 Mg Tablet) 650 mg PO Q6H PRN PRN Reason: Pain, Mild (Pain Scale 1-3), fever or headache Calcium Carbonate (Calcium Carbonate 750 Mg Tab.Chew) 750 mg PO Q4H PRN PRN Reason: Heartburn Glucose (Glucose Gel 15 Gm Gel..Gram.) 15 gm PO Q15M PRN; Protocol PRN Reason: per Hypoglycemia Standing Ord. Heparin Sodium (Porcine) (Heparin Sodium,Porcine 5,000 Unit/Ml Vial) 5,000 unit SUBCUT Q12H [facility] Last Admin: 08/28/23 11:10 Dose: Not Given Hydromorphone HCl (Hydromorphone Hcl 4 Mg Tablet) 4 mg PO Q6H PRN PRN Reason: Pain, Severe (Pain Scale 7-10) Last Admin: 08/28/23 11:18 Dose: 4 mg Doxycycline Hyclate 100 mg/ (Sodium Chloride) 250 mls @ 166.67 mls/hr IV Q12H [facility] Last Admin: 08/28/23 11:46 Dose: 166.67 mls/hr Piperacillin Sod/Tazobactam (Sod 4.5 gm/ Sodium Chloride) 100 mls @ 200 mls/hr IV Q12H [facility] Last Infusion: 08/28/23 11:50 Dose: Infused Dextrose (D10) 250 mls @ 750 mls/hr IV Q15M PRN; Protocol PRN Reason: per Hypoglycemia Standing Ord. Insulin Human Lispro (Insulin Lispro 100 Unit/Ml 3 Ml Vial) 0 unit SUBCUT QIDACHS [facility]; Protocol Last Admin: 08/28/23 11:38 Dose: Not Given Magnesium Hydroxide (Milk Of Magnesia 30 Ml Oral.Susp) 30 ml PO DAILY PRN PRN Reason: Constipation Melatonin (Melatonin 3 Mg Tablet) 6 mg PO BEDTIME PRN PRN Reason: Insomnia Ondansetron HCl (Ondansetron Hcl 4 Mg/2 Ml Vial) 4 mg IVPUSH Q4H PRN PRN Reason: Nausea and Vomiting Last Admin: 08/28/23 00:49 Dose: 4 mg Sodium Chloride (0.9 % Sodium Chloride Flush 3 Ml Syringe) 3 ml IVFLUSH [facility] Last Admin: 08/28/23 07:28 Dose: Not Given Home Medications ?Medication ?Instructions ?Recorded ?Confirmed ?Last Taken ?Type carvedilol 12.5 mg tablet 12.5 mg PO BID 06/05/23 08/28/23 06/16/23 History docusate sodium 100 mg capsule 100 mg PO DAILY PRN constipation 06/05/23 08/28/23 Unknown History isosorbide mononitrate 30 mg 30 mg PO DAILY 06/05/23 08/28/23 06/16/23 History tablet,extended release 24 hr torsemide 20 mg tablet 40 mg PO BID 06/05/23 08/28/23 06/16/23 History levetiracetam 1,000 mg tablet 1,000 mg PO DAILY 06/17/23 08/28/23 06/16/23 History oxycodone 5 mg tablet 5 mg PO TID PRN Pain 06/17/23 08/28/23 Unknown History calcium carbonate (Calcium Antacid) 1 tab PO TIDWM 08/28/23 08/28/23 Unknown History cholecalciferol (vitamin D3) 50 50 mcg PO DAILY 08/28/23 08/28/23 Unknown History mcg (2,000 unit) capsule omeprazole 20 mg capsule,delayed 20 mg PO DAILY 08/28/23 08/28/23 Unknown History release Physical Exam 2 Vital Signs: Vital Signs: Last Vital Signs Temp 96.8 F 08/28/23 11:02 Pulse 82 08/28/23 11:02 Resp 16 08/28/23 11:02 BP 166/100 H 08/28/23 11:02 Pulse Ox 98 08/28/23 11:02 O2 Del Method Nasal Cannula 08/28/23 11:02 O2 Flow Rate 3.0 08/28/23 11:02 Oxygen Flow Rate 3 08/27/23 19:13 BMI result Body Mass Index 30.4 Const: General: lethargic and tired appearing Nutritional Appearance: well nourished Orientation/consciousness: lethargic HEENT: Head: Yes normocephalic and Yes atraumatic Ears: hearing grossly normal bilaterally Resp: Effort & Inspection: normal respiratory effort, no audible wheezes, no cough and no respiratory distress GI: Inspection: Yes normal to inspection Skin: General skin exam: no rashes or lesions noted Extrem: Ankle/foot/toe images: 1. Right transmetatarsal amputation 2. Ulcer located over the medial surface with overlying callus. Granulation tissue noted at the base of wound. No exposed bone appreciated. Wound dressed with silver alginate followed by fluff gauze and Agueda. 3. Amputation of great toe and 2nd toe 4. Plantar ulcer measuring approximately 3 cm diameter with surrounding callus. No granulation tissue noted. Wound is tender to palpation with surrounding edema Results Labs 08/27/23 20:04 08/27/23 20:04 Labs: Abnormal lab results 08/27/23 Range/Units 20:04 RBC 2.64 L (4.20-5.50) X10*6/uL Hgb 8.2 L (12.0-16.0) g/dl Hct 25.8 L (37.0-47.0) % Plt Count 150 L (160-400) X10*3/uL Neut % (Auto) 84.5 H (45-73) % Lymph % (Auto) 5.2 L (20-40) % Lymph # (Auto) 0.4 L (1.2-4.9) X10*3/uL ESR 108 H (0-20) MM/HR Carbon Dioxide 20 L (22-29) mmol/L BUN 61 H (9-16) mg/dL Creatinine 6.93 H* (0.5-1.4) mg/dL Random Glucose 130 H (60-115) mg/dL Calcium 7.9 L D (8.4-10.2) mg/dL Total Bilirubin 1.3 H (0.0-1.0) mg/dL Alkaline Phosphatase 209 H (39-117) U/L Albumin 2.8 L (3.5-5.0) g/dL Short CBC 08/27/23 Range/Units 20:04 WBC 7.5 (4.8-10.8) X10*3/uL Hgb 8.2 L (12.0-16.0) g/dl Hct 25.8 L (37.0-47.0) % Plt Count 150 L (160-400) X10*3/uL BMP 08/27/23 20:04 Sodium 136 Potassium 4.8 Chloride 104 Carbon Dioxide 20 L BUN 61 H Creatinine 6.93 H* Calcium 7.9 L D Liver Function 08/27/23 Range/Units 20:04 Total Bilirubin 1.3 H (0.0-1.0) mg/dL AST 21 (5-31) U/L ALT 16 (0-31) U/L Alkaline Phosphatase 209 H (39-117) U/L Albumin 2.8 L (3.5-5.0) g/dL All other labs normal. Imaging Additional studies: MRI left foot: MR/MR foot LT wo con IMPRESSION: 1. Slight increase in the size of the ulcer along the plantar lateral aspect of the midfoot/forefoot. No underlying abscess or sinus tract. 2. Persistent abnormality of the soft tissues along the plantar aspect of the foot compatible with a combination of cellulitis and fibrosis slightly more prominent compared to previous. 3. Extensive bone and joint changes compatible with neuropathic arthropathy. 4. Postsurgical changes in the forefoot. 5. Marrow changes in the midfoot and proximal forefoot are most consistent with neuropathic arthropathy. No specific findings of osteomyelitis. 6. Persistent deformity of the distal end of the fourth metatarsal which may reflect a combination of postsurgical change or prior trauma or infection. 7. Mild arthrosis of the talonavicular joint unchanged. 8. Mild abnormality in the subcutaneous soft tissues compatible edema, cellulitis or combination of these. 9. Findings in the muscles compatible with denervation myositis unchanged. Assessment and Plan (1) Diabetic foot infection: Status: Acute Plan 33-year-old female patient with previous amputations in the bilateral feet presenting with a painful left plantar ulcer and right chronic ulcer. MRI results reviewed. No evidence of osteomyelitis. Patient will need IV antibiotics and probable debridement of the ulcer down to viable tissue. Suggest vascular surgery consultation as well. Wounds dressed with silver alginate and dry sterile dressings. Recommend continuing this daily. We will continue to monitor. Procedures Date of Service Date of Service: 08/28/23
--- NOTE | 2023-08-28 13:19 | P.PNIM_ITS ---
Subjective Subjective Date of Service: 08/28/23 Review of Systems Follow up foot ulcer having pain to left foot Physical Exam 2 Vital Signs: Vital Signs: Last Vital Signs Temp 96.8 F 08/28/23 11:02 Pulse 82 08/28/23 11:02 Resp 16 08/28/23 11:02 BP 166/100 H 08/28/23 11:02 Pulse Ox 98 08/28/23 11:02 O2 Del Method Nasal Cannula 08/28/23 11:02 O2 Flow Rate 3.0 08/28/23 11:02 Oxygen Flow Rate 3 08/27/23 19:13 BMI result Body Mass Index 30.4 Appearing in no acute distress lung sounds are clear to auscultation heart regular rate rhythm, clear S1, S2 positive bowel sounds, abdomen is soft, nontender neuro patient is alert x3, no focal deficits Bilteral plantar aspects of both feet with 1/2 dollar size ulcers. Left with eschar on surrounding tissue, right with eschar to base of ulcer, left foot edema to plantar aspect painful to palpation Objective Data Active Medications Acetaminophen (Acetaminophen 325 Mg Tablet) 650 mg PO Q6H PRN PRN Reason: Pain, Mild (Pain Scale 1-3), fever or headache Calcium Carbonate (Calcium Carbonate 750 Mg Tab.Chew) 750 mg PO Q4H PRN PRN Reason: Heartburn Glucose (Glucose Gel 15 Gm Gel..Gram.) 15 gm PO Q15M PRN; Protocol PRN Reason: per Hypoglycemia Standing Ord. Heparin Sodium (Porcine) (Heparin Sodium,Porcine 5,000 Unit/Ml Vial) 5,000 unit SUBCUT Q12H [facility] Last Admin: 08/28/23 11:10 Dose: Not Given Documented By: RUBA Non-Admin Reason: Patient Refused Hydromorphone HCl (Hydromorphone Hcl 4 Mg Tablet) 4 mg PO Q6H PRN PRN Reason: Pain, Severe (Pain Scale 7-10) Last Admin: 08/28/23 11:18 Dose: 4 mg Documented By: RUBA Doxycycline Hyclate 100 mg/ (Sodium Chloride) 250 mls @ 166.67 mls/hr IV Q12H [facility] Last Admin: 08/28/23 11:46 Dose: 166.67 mls/hr Documented By: RUBA Piperacillin Sod/Tazobactam (Sod 4.5 gm/ Sodium Chloride) 100 mls @ 200 mls/hr IV Q12H [facility] Last Infusion: 08/28/23 11:50 Dose: Infused Documented By: RUBA Dextrose (D10) 250 mls @ 750 mls/hr IV Q15M PRN; Protocol PRN Reason: per Hypoglycemia Standing Ord. Insulin Human Lispro (Insulin Lispro 100 Unit/Ml 3 Ml Vial) 0 unit SUBCUT QIDACHS [facility]; Protocol Last Admin: 08/28/23 11:38 Dose: Not Given Documented By: RUBA Non-Admin Reason: No Insulin Coverage Magnesium Hydroxide (Milk Of Magnesia 30 Ml Oral.Susp) 30 ml PO DAILY PRN PRN Reason: Constipation Melatonin (Melatonin 3 Mg Tablet) 6 mg PO BEDTIME PRN PRN Reason: Insomnia Ondansetron HCl (Ondansetron Hcl 4 Mg/2 Ml Vial) 4 mg IVPUSH Q4H PRN PRN Reason: Nausea and Vomiting Last Admin: 08/28/23 00:49 Dose: 4 mg Documented By: SARAH Sodium Chloride (0.9 % Sodium Chloride Flush 3 Ml Syringe) 3 ml IVFLUSH [facility] Last Admin: 08/28/23 07:28 Dose: Not Given Documented By: HORACIO Non-Admin Reason: Patient Asleep Labs 08/27/23 20:04 08/27/23 20:04 Labs: Laboratory Results - last 24 hr 08/27/23 08/27/23 08/28/23 20:03 20:04 07:25 MCV 97.7 MCH 31.1 MCHC 31.8 RDW 15.8 Plt Count 150 L MPV 11.7 Immature Gran % (Auto) 0.4 Neut % (Auto) 84.5 H Lymph % (Auto) 5.2 L [place] % (Auto) 8.1 Eos % (Auto) 1.5 Baso % (Auto) 0.3 Lymph # (Auto) 0.4 L [place] # (Auto) 0.6 Eos # (Auto) 0.1 Baso # (Auto) 0.0 Abs Immat Gran (auto) 0.03 Absolute Neuts (auto) 6.4 Absolute Nucleated RBC 0.000 Nucleated RBC % (auto) 0.0 ESR 108 H Anion Gap 17 Estim Creat Clear Calc 12.2 Estimated GFR 7 POC Glucose 88 Random Glucose 130 H Lactic Acid 1.1 Calcium 7.9 L D Total Bilirubin 1.3 H AST 21 ALT 16 Alkaline Phosphatase 209 H Total Protein 6.9 Albumin 2.8 L 08/28/23 11:21 MCV MCH MCHC RDW Plt Count MPV Immature Gran % (Auto) Neut % (Auto) Lymph % (Auto) [place] % (Auto) Eos % (Auto) Baso % (Auto) Lymph # (Auto) [place] # (Auto) Eos # (Auto) Baso # (Auto) Abs Immat Gran (auto) Absolute Neuts (auto) Absolute Nucleated RBC Nucleated RBC % (auto) ESR Anion Gap Estim Creat Clear Calc Estimated GFR POC Glucose 103 Random Glucose Lactic Acid Calcium Total Bilirubin AST ALT Alkaline Phosphatase Total Protein Albumin Assessment and Plan (1) Diabetic foot infection: Status: Acute Plan 32-year-old female with pertinent history of ESRD on hemodialysis, 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, peripheral arterial disease status post bilateral TMA, poorly controlled hypertension due to noncompliance with medications, chronic hypoxic respiratory failure on 4 L baseline supplemental oxygen, congestive heart failure with reduced ejection fraction, mood disorder, chronic pain with opioid seeking behavior, cardiomyopathy who presents to the emergency department for evaluation of foot infection. Diabetic foot infection with nonhealing ulcers and purulent cellulitis Noncompliant with p.o. antibiotics outpatient. continue zosyn and doxycycline MRI of left foot neg for osteomyelitis and abscess General surgery consult> silver alginate to right foot ulcer, plan for debridement to bilat foot ulcers when less tender, rec vascular surgery consultation ESRD on hemodialysis Consulting nephrology (renal and transplant of [place]) for dialysis scheduling T,, Waj-wyjprej-pilwtdgvr diabetes mellitus ss, ada diet Mood disorder On sertraline Congestive heart failure with reduced ejection fraction with chronic hypoxia no exacerbation continue torsemide, beta-mohamud. On baseline 4 L supplemental oxygen CAD/cardiomyopathy On aspirin, Imdur and beta-mohamud Chronic pain with opioid seeking behavior On p.o. opioids. Poorly controlled hypertension due to medication noncompliance Resume home antihypertensives Chronic anemia of kidney disease ESRD above tx threshold DVT prophylaxis: Heparin Attending Dr. Weeks Full code continue hospital stay for IV antibiotics (as above), which is not possible in a lesser acute setting. Quality Stroke Does the patient have a stroke diagnosis?: No VTE Prior VTE?: No VTE Risk Level:: Medical - moderate - high VTE Device Contraindication: Treatment Not Indicated VTE Drug Contraindication: N/A - Med Ordered
--- NOTE | 2023-08-28 14:19 | HO.WOUND ---
Wound Consult: Initial 33yr old?female [place] [facility] [place] - See progress notes and H&P for detailed history.? Wound consult placed for Bilateral Chronic Diabetic Wounds.? Arrival to beside patient refused dressing change stating they were just changed and she did not want me to take down the dressings. She was agreeable to my assessment tomorrow, will followup at future date and time for wound assessment. Both feet are noted to be in intact gauze wrap dressings. Of note General Surgery was consulted per chart review - consult note not yet completed will monitor for topical recommendations. If general surgery has made topical recommendations I will defer to there service. Of note patient is well known to this music writer from multiple previous admissions. Will follow up tomorrow.
--- NOTE | 2023-08-28 16:06 | P.CONGS_ITS ---
History of Present Illness Consult details Consult date: 08/28/23 Reason for consult: wound care Narrative: Very complex 33-year-old diabetic female presents for follow-up regarding nonhealing ulcers of the lower extremities. She has bilateral TMA and most recently presented to the hospital with left foot pain. She was treated with p.o. antibiotics for concerns of a left foot infection. She never got the antibiotics. It has progressively gotten worse. She now presents to us for vascular evaluation. Unfortunately she has never followed up for outpatient visits as well. Review of Systems 2 Review of Systems: Yes all other systems are reviewed and are negative Constitutional: Constitutional: Reports no additional constitutional complaints ENT: Reports Normal hearing present Cardiovascular: Cardiovascular: Denies chest pain, Denies chest pain at rest, Denies chest pain with activity and Denies pedal edema Respiratory: Respiratory: Denies cough Gastrointestinal: Gastrointestinal: Denies abdominal pain Musculoskeletal: Musculoskeletal: Denies abnormal gait, Denies muscle cramps and Denies radiating pain into limb Integumentary/Breasts: Skin/Breast: Denies skin ulcer and Denies wounds Neurologic: Reports Normal hearing present and Denies abnormal gait Psychiatric: Psychiatric: Reports no additional psychiatric complaints PMFSH Past Medical History Medical History Major depressive disorder, single episode, severe Non-compliance with renal dialysis Hypertensive urgency MDD (major depressive disorder) Hypertension Anemia ESRD (end stage renal disease) MDD (major depressive disorder), recurrent episode End-stage renal disease (ESRD) Foot ulcer CKD (chronic kidney disease) Hypertension Diabetic foot Vomiting Renal failure Hypertension Hyperkalemia Metabolic acidosis HFrEF (heart failure with reduced ejection fraction) ESRD on dialysis Migraine Diabetic foot ulcer associated with type 2 diabetes mellitus Chronic pain Gastroparesis Non-compliance with renal dialysis Hypertensive emergency Diabetes ESRD needing dialysis Cardiomyopathy delivery delivered Anemia in chronic kidney disease (CKD) CKD (chronic kidney disease) Headache, migraine Abnormal finding on echocardiogram Elevated troponin Chest pain Acute worsening of stage 3 chronic kidney disease Generalized edema Sepsis Cellulitis Pleural effusion CHF (congestive heart failure) (~06/07/22) Tachycardia Atypical chest pain Bone infection PAD (peripheral artery disease) Severe anemia Cellulitis and abscess of foot DM foot ulcer Osteomyelitis test positive test positive Asthma Depression with anxiety Diabetic retinopathy Type 2 diabetes mellitus with hyperglycemia, with long-term current use of insulin Blind right eye Diabetes Back pain Family History Family History Mother Coronary artery disease Myocardial infarction Stroke Diabetes mellitus Father Myocardial infarction Surgical History Surgical History 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 Social History Social History Household Members: Family Household Members Other:: sister Housing: Apartment Do you presently have visiting nurse or other home services: Yes Unable to assess alcohol history related to: Unknown Alcohol intake: never 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 Patient Tobacco Use Status: Never used Tobacco e-Cigarette/Vaping Use: Never Used Second Hand Smoke Exposure: No Use of substances other than those prescribed or required for medical reasons: No Currently Displaying Signs/Symptoms of Drug Intoxication Withdrawal: No Have you been hit, kicked, punched, or otherwise hurt by someone within the past year? If so, by whom?: No Do you feel safe in your current relationship?: Yes Is there a partner from a previous relationship who is making you feel unsafe now?: No Are you made to feel afraid or neglected: No Advance Directives: Yes Advance Directives Information Provided: Yes Advance Directives on File: Yes Advance Directives Date on File: 03/08/20 Do you have a plan to hurt others: No Plan Recently lost weight without trying: No Nutrition Risks: No Nutritional Risk Patient : No : No Poor oral hygiene: No service: No Current occupational status: unemployed and disabled Gender identity: Female Meds Allergies Allergy/AdvReac Type Severity Reaction Status Date / Time morphine [MORPHINE] Allergy Intermediate Itching Verified 08/27/23 19:17 azithromycin [From Zithromax] Allergy Hives Verified 08/27/23 19:17 gabapentin Allergy Facial Verified 08/27/23 19:17 Swelling tramadol Allergy Facial Verified 08/27/23 19:17 Swelling vancomycin Allergy Anaphylaxis Verified 08/27/23 19:17 Active Medications: Current Medications Acetaminophen (Acetaminophen 325 Mg Tablet) 650 mg PO Q6H PRN PRN Reason: Pain, Mild (Pain Scale 1-3), fever or headache Calcium Carbonate (Calcium Carbonate 750 Mg Tab.Chew) 750 mg PO Q4H PRN PRN Reason: Heartburn Diphenhydramine HCl (Diphenhydramine Hcl 50 Mg/Ml Vial) 25 mg IVPUSH Q6H PRN PRN Reason: Itching Glucose (Glucose Gel 15 Gm Gel..Gram.) 15 gm PO Q15M PRN; Protocol PRN Reason: per Hypoglycemia Standing Ord. Heparin Sodium (Porcine) (Heparin Sodium,Porcine 5,000 Unit/Ml Vial) 5,000 unit SUBCUT Q12H [facility] Last Admin: 08/28/23 11:10 Dose: Not Given Hydromorphone HCl (Hydromorphone Hcl 0.5 Mg/0.5 Ml Syringe) 0.5 mg IVPUSH Q4H PRN; Protocol PRN Reason: Pain, Severe (Pain Scale 7-10) Doxycycline Hyclate 100 mg/ (Sodium Chloride) 250 mls @ 166.67 mls/hr IV Q12H [facility] Last Infusion: 08/28/23 13:45 Dose: Infused Piperacillin Sod/Tazobactam (Sod 4.5 gm/ Sodium Chloride) 100 mls @ 200 mls/hr IV Q12H [facility] Last Infusion: 08/28/23 11:50 Dose: Infused Dextrose (D10) 250 mls @ 750 mls/hr IV Q15M PRN; Protocol PRN Reason: per Hypoglycemia Standing Ord. Insulin Human Lispro (Insulin Lispro 100 Unit/Ml 3 Ml Vial) 0 unit SUBCUT QIDACHS [facility]; Protocol Last Admin: 08/28/23 11:38 Dose: Not Given Magnesium Hydroxide (Milk Of Magnesia 30 Ml Oral.Susp) 30 ml PO DAILY PRN PRN Reason: Constipation Melatonin (Melatonin 3 Mg Tablet) 6 mg PO BEDTIME PRN PRN Reason: Insomnia Ondansetron HCl (Ondansetron Hcl 4 Mg/2 Ml Vial) 4 mg IVPUSH Q4H PRN PRN Reason: Nausea and Vomiting Last Admin: 08/28/23 00:49 Dose: 4 mg Sodium Chloride (0.9 % Sodium Chloride Flush 3 Ml Syringe) [facility] Last Admin: 08/28/23 07:28 Dose: Not Given Home Medications ?Medication ?Instructions ?Recorded ?Confirmed ?Last Taken ?Type carvedilol 12.5 mg tablet 12.5 mg PO BID 04/11/1908/28/23 06/16/23 History docusate sodium 100 mg capsule 100 mg PO DAILY PRN constipation 06/05/23 08/28/23 Unknown History isosorbide mononitrate 30 mg 30 mg PO DAILY 06/05/23 08/28/23 06/16/23 History tablet,extended release 24 hr torsemide 20 mg tablet 40 mg PO BID 06/05/23 08/28/23 06/16/23 History levetiracetam 1,000 mg tablet 1,000 mg PO DAILY 06/17/23 08/28/23 06/16/23 History oxycodone 5 mg tablet 5 mg PO TID PRN Pain 06/17/23 08/28/23 Unknown History calcium carbonate (Calcium Antacid) 1 tab PO TIDWM 08/28/23 08/28/23 Unknown History cholecalciferol (vitamin D3) 50 50 mcg PO DAILY 08/28/23 08/28/23 Unknown History mcg (2,000 unit) capsule omeprazole 20 mg capsule,delayed 20 mg PO DAILY 08/28/23 08/28/23 Unknown History release Physical Exam 2 Vital Signs: Vital Signs: Last Vital Signs Temp 97.8 F 08/28/23 15:37 Pulse 81 08/28/23 15:37 Resp 19 08/28/23 15:37 BP 177/94 H 08/28/23 15:37 Pulse Ox 99 08/28/23 15:37 O2 Del Method Nasal Cannula 08/28/23 15:37 O2 Flow Rate 3.0 08/28/23 11:02 Oxygen Flow Rate 3 08/27/23 19:13 BMI result Body Mass Index 30.4 Const: General: cooperative, healthy appearing and comfortable O rientation/consciousness: oriented to person, oriented to place and oriented to time HEENT: Head: Yes normal to inspection Neck: Neck: Yes normal visual inspection Carotids: no bruits Chest: Chest palpation & inspection: normal inspection of the chest Resp: Effort & Inspection: normal respiratory effort and able to speak in complete sentences Auscultation: clear to auscultation bilaterally, no crackles, no rales, no rhonchi and no wheezes Cardio: Rate: regular rate Rhythm: regular rhythm Heart sounds: S1 normal heart sound present and S2 normal heart sound present Bruits: no carotid bruits Peripheral pulses: Peripheral pulses 2+ throughout GI: Inspection: Yes normal to inspection Skin: Other: Left foot plantar ulceration approximately 2 cm in diameter. In addition trans met flap more towards the medial aspect approximately 2 cm opening both appear relatively clean. Wounds: no wounds Hair: normal Neuro: General: oriented to person, oriented to place and oriented to time Cranial nerves: Yes CN's II-XII intact bilaterally and Yes Normal hearing present Cognition (Neuro): normal cognition Motor exam (neuro): 5/5 motor strength present throughout Extrem: Other: venous exam: No significant superficial varicosities or spider telangiectasias, minimal edema General: No clubbing, No cyanosis and No edema Psych: Appearance: grossly normal Mental Status: mental status grossly normal Speech and movement: Normal speech and movement present Results Labs 08/27/23 20:04 08/27/23 20:04 Labs: Abnormal lab results 08/27/23 Range/Units 20:04 RBC 2.64 L (4.20-5.50) X10*6/uL Hgb 8.2 L (12.0-16.0) g/dl Hct 25.8 L (37.0-47.0) % Plt Count 150 L (160-400) X10*3/uL Neut % (Auto) 84.5 H (45-73) % Lymph % (Auto) 5.2 L (20-40) % Lymph # (Auto) 0.4 L (1.2-4.9) X10*3/uL ESR 108 H (0-20) MM/HR Carbon Dioxide 20 L (22-29) mmol/L BUN 61 H (9-16) mg/dL Creatinine 6.93 H* (0.5-1.4) mg/dL Random Glucose 130 H (60-115) mg/dL Calcium 7.9 L D (8.4-10.2) mg/dL Total Bilirubin 1.3 H (0.0-1.0) mg/dL Alkaline Phosphatase 209 H (39-117) U/L Albumin 2.8 L (3.5-5.0) g/dL Short CBC 08/27/23 Range/Units 20:04 WBC 7.5 (4.8-10.8) X10*3/uL Hgb 8.2 L (12.0-16.0) g/dl Hct 25.8 L (37.0-47.0) % Plt Count 150 L (160-400) X10*3/uL BMP 08/27/23 20:04 Sodium 136 Potassium 4.8 Chloride 104 Carbon Dioxide 20 L BUN 61 H Creatinine 6.93 H* Calcium 7.9 L D Liver Function 08/27/23 Range/Units 20:04 Total Bilirubin 1.3 H (0.0-1.0) mg/dL AST 21 (5-31) U/L ALT 16 (0-31) U/L Alkaline Phosphatase 209 H (39-117) U/L Albumin 2.8 L (3.5-5.0) g/dL All other labs normal. Imaging Additional studies: MRI reviewed Assessment and Plan (1) Chronic ulcer of left foot due to diabetes mellitus: Status: Acute Plan In short patient has bilateral transmetatarsal amputations. There is no underlying evidence of osteomyelitis. At the current time arterial status appears to be stable and was reviewed in February of this year which showed no significant hemodynamic stenosis.. Unfortunately due to her noncompliance would not be aggressive in any sort of intervention as she will not take any of the required anticoagulants. Continue with local wound care for the current time. Antibiotics as needed, and hopefully she will comply as an outpatient with that. Unfortunately she is at extremely high risk for further amputation and I do believe the next step would be a BKA on her. Thank you for allowing us to assist in her care. If there are any questions or concerns please do not hesitate to contact us. Procedures Date of Service Date of Service: 08/28/23
[2023-08-28] MEDS: diphenhydrAMINE HCL 50 MG/ML VIAL 25 MG IVPUSH ×2 (16:17→22:40)
[2023-08-28] MEDS: 0.9 % Sodium Chloride Flush 3 ML SYRINGE IVFLUSH ×2 (16:17→20:42)
[2023-08-28] MEDS: HYDROmorphone HCl 0.5 MG/0.5 ML SYRINGE IVPUSH ×2 (16:18→20:40)
[2023-08-28 16:23] LABS: Glucose, Whole Blood 77 mg/dL (60-115)
[2023-08-28 20:16] LABS: Glucose, Whole Blood 74 mg/dL (60-115)
[2023-08-29] MEDS: ondansetron HCL 4 MG/2 ML VIAL IVPUSH (01:09)
[2023-08-29] MEDS: HYDROmorphone HCl 0.5 MG/0.5 ML SYRINGE IVPUSH ×5 (01:28→20:49)
[2023-08-29 01:29] VITALS: BP 144/82; PULSE 86; RESP 18; TEMP 36.1; O2SAT 96
[2023-08-29] MEDS: diphenhydrAMINE HCL 50 MG/ML VIAL 25 MG IVPUSH ×3 (05:52→18:28)
[2023-08-29 06:59] LABS: MANUAL DIFF FLAG NO
[2023-08-29 07:34] LABS: Basophils Percent Auto 0.6 % (0-2); Eosinophils Absolute Auto 0.3 X10*3/uL (0.0-0.4); Eosinophils Percent Auto 7.9 % (0-4); Hematocrit 25.3 % (37.0-47.0); Hemoglobin 8.2 g/dl (12.0-16.0); Imm Gran Abs Auto 0.02 X10*3/uL (0.00-0.03); Imm Gran Pct Auto 0.6 % (0.0-0.4); Lymphocytes Absolute Auto 0.2 X10*3/uL (1.2-4.9); Lymphocytes Percent Auto 5.3 % (20-40); Mean Corpuscular HGB Conc 32.4 g/dl (31.0-35.0); Mean Corpuscular Hemoglobin 31.3 pg (27.0-33.0); Mean Corpuscular Volume 96.6 fL (80.0-98.0); Mean Platelet Volume 12.1 fL (9.4-12.3); Monocytes Absolute Auto 0.4 X10*3/uL (0.1-1.2); Monocytes Percent Auto 11.5 % (2-11); Neutrophils Absolute Auto 2.6 x10*3/uL (2.0-8.3); Neutrophils Percent Auto 74.1 % (45-73); Platelet Count 177 X10*3/uL (160-400); Red Blood Count 2.62 X10*6/uL (4.20-5.50); Red Cell Distribution Width 15.5 % (11.0-16.0); White Blood Count 3.6 X10*3/uL (4.8-10.8)
[2023-08-29 07:49] LABS: Anion Gap 15 (12-20); Blood Urea Nitrogen 43 mg/dL (9-16); Calcium 8.8 mg/dL (8.4-10.2); Carbon Dioxide 23 mmol/L (22-29); Chloride 98 mmol/L (96-108); Creatinine Clr Calc Pharmacy 18.5; Estimated Glomerular Filt Rate 11; Glucose Random 64 mg/dL (60-115); Sodium 132 mmol/L (135-145)
[2023-08-29 08:11] LABS: Glucose, Whole Blood 59 mg/dL (60-115)
[2023-08-29 09:04] LABS: Glucose, Whole Blood 82 mg/dL (60-115)
[2023-08-29 09:28] VITALS: BP 166/74; PULSE 90; RESP 16; TEMP 36; O2SAT 96
--- NOTE | 2023-08-29 09:55 | HO.PM.IMPN ---
Subjective Subjective Date of Service: 08/29/23 Interval History: pruritis ENT Ears, Nose, Mouth, and Throat: Reports Normal hearing present Neurologic Neurologic: Reports Normal hearing present Physical Exam Vital Signs: Vital Signs: Last Vital Signs Temp 96.8 F 08/29/23 09:28 Pulse 90 08/29/23 09:28 Resp 16 08/29/23 09:28 BP 166/74 H 08/29/23 09:28 Pulse Ox 96 08/29/23 09:28 O2 Del Method Nasal Cannula 08/29/23 09:28 O2 Flow Rate 3 08/29/23 09:28 Oxygen Flow Rate 3 08/27/23 19:13 BMI result Body Mass Index 30.4 Const: General: cooperative, healthy appearing and comfortable Orientation/consciousness: oriented to person, oriented to place and oriented to time HEENT: Head: Yes normal to inspection Neck: Neck: Yes normal visual inspection Carotids: no bruits Chest: Chest palpation & inspection: normal inspection of the chest Resp: Effort & Inspection: normal respiratory effort and able to speak in complete sentences Auscultation: clear to auscultation bilaterally, no crackles, no rales, no rhonchi and no wheezes Cardio: Rate: regular rate Rhythm: regular rhythm Heart sounds: S1 normal heart sound present and S2 normal heart sound present Bruits: no carotid bruits Peripheral pulses: Peripheral pulses 2+ throughout GI: Inspection: Yes normal to inspection Skin: Other: Left foot plantar ulceration approximately 2 cm in diameter. In addition trans met flap more towards the medial aspect approximately 2 cm opening both appear relatively clean. Wounds: no wounds Hair: normal Neuro: General: oriented to person, oriented to place and oriented to time Cranial nerves: Yes CN's II-XII intact bilaterally and Yes Normal hearing present Cognition (Neuro): normal cognition Motor exam (neuro): 5/5 motor strength present throughout Extrem: Other: venous exam: No significant superficial varicosities or spider telangiectasias, minimal edema General: No clubbing, No cyanosis and No edema Psych: Appearance: grossly normal Mental Status: mental status grossly normal Speech and movement: Normal speech and movement present Objective Data Active Medications Acetaminophen (Acetaminophen 325 Mg Tablet) 650 mg PO Q6H PRN PRN Reason: Pain, Mild (Pain Scale 1-3), fever or headache Calcium Carbonate (Calcium Carbonate 750 Mg Tab.Chew) 750 mg PO Q4H PRN PRN Reason: Heartburn Diphenhydramine HCl (Diphenhydramine Hcl 50 Mg/Ml Vial) 25 mg IVPUSH Q6H PRN PRN Reason: Itching Last Admin: 08/29/23 05:52 Dose: 25 mg Documented By: CHRISTAL Glucose (Glucose Gel 15 Gm Gel..Gram.) 15 gm PO Q15M PRN; Protocol PRN Reason: per Hypoglycemia Standing Ord. Heparin Sodium (Porcine) (Heparin Sodium,Porcine 5,000 Unit/Ml Vial) 5,000 unit SUBCUT Q12H [facility] Last Admin: 08/29/23 09:30 Dose: Not Given Documented By: RONAL Non-Admin Reason: Patient Refused Hydromorphone HCl (Hydromorphone Hcl 0.5 Mg/0.5 Ml Syringe) 0.5 mg IVPUSH Q4H PRN; Protocol PRN Reason: Pain, Severe (Pain Scale 7-10) Last Admin: 08/29/23 05:45 Dose: 0.5 mg Documented By: CHRISTAL Doxycycline Hyclate 100 mg/ (Sodium Chloride) 250 mls @ 166.67 mls/hr IV Q12H [facility] Last Infusion: 08/28/23 22:41 Dose: Infused Documented By: CHRISTAL Piperacillin Sod/Tazobactam (Sod 4.5 gm/ Sodium Chloride) 100 mls @ 200 mls/hr IV Q12H [facility] Last Infusion: 08/28/23 21:14 Dose: Infused Documented By: CHRISTAL Dextrose (D10) 250 mls @ 750 mls/hr IV Q15M PRN; Protocol PRN Reason: per Hypoglycemia Standing Ord. Insulin Human Lispro (Insulin Lispro 100 Unit/Ml 3 Ml Vial) 0 unit SUBCUT QIDACHS [facility]; Protocol Last Admin: 08/29/23 08:31 Dose: Not Given Documented By: RONAL Non-Admin Reason: No Insulin Coverage Magnesium Hydroxide (Milk Of Magnesia 30 Ml Oral.Susp) 30 ml PO DAILY PRN PRN Reason: Constipation Melatonin (Melatonin 3 Mg Tablet) 6 mg PO BEDTIME PRN PRN Reason: Insomnia Ondansetron HCl (Ondansetron Hcl 4 Mg/2 Ml Vial) 4 mg IVPUSH Q4H PRN PRN Reason: Nausea and Vomiting Last Admin: 08/29/23 01:09 Dose: 4 mg Documented By: CHRISTAL Sodium Chloride (0.9 % Sodium Chloride Flush 3 Ml Syringe) 3 ml IVFLUSH [facility] Last Admin: 08/29/23 08:04 Dose: Not Given Documented By: RONAL Non-Admin Reason: Off unit: Dialysis Labs 08/29/23 06:49 08/29/23 06:49 Labs: Laboratory Results - last 24 hr 08/28/23 08/28/23 08/28/23 11:21 16:18 20:11 MCV MCH MCHC RDW Plt Count MPV Immature Gran % (Auto) Neut % (Auto) Lymph % (Auto) [place] % (Auto) Eos % (Auto) Baso % (Auto) Lymph # (Auto) [place] # (Auto) Eos # (Auto) Baso # (Auto) Abs Immat Gran (auto) Absolute Neuts (auto) Absolute Nucleated RBC Nucleated RBC % (auto) Anion Gap Estim Creat Clear Calc Estimated GFR POC Glucose 103 77 74 Random Glucose Calcium 08/29/23 08/29/23 08/29/23 06:49 08:08 08:58 MCV 96.6 MCH 31.3 MCHC 32.4 RDW 15.5 Plt Count 177 MPV 12.1 Immature Gran % (Auto) 0.6 H Neut % (Auto) 74.1 H Lymph % (Auto) 5.3 L [place] % (Auto) 11.5 H Eos % (Auto) 7.9 H Baso % (Auto) 0.6 Lymph # (Auto) 0.2 L [place] # (Auto) 0.4 Eos # (Auto) 0.3 Baso # (Auto) 0.0 Abs Immat Gran (auto) 0.02 Absolute Neuts (auto) 2.6 Absolute Nucleated RBC 0.000 Nucleated RBC % (auto) 0.0 Anion Gap 15 Estim Creat Clear Calc 18.5 Estimated GFR 11 POC Glucose 59 L* 82 Random Glucose 64 Calcium 8.8 D Microbiology Microbiology Results: Microbiology 08/27/23 20:14 Blood Culture - Preliminary Blood - Venous No growth after 24 hours. 08/27/23 20:03 Blood Culture - Preliminary Blood - Venous No growth after 24 hours. 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 Diabetic foot infection with nonhealing ulcers and purulent cellulitis Noncompliant with p.o. antibiotics outpatient. continue zosyn and doxycycline MRI of left foot neg for osteomyelitis and abscess General surgery consult> silver alginate to right foot ulcer, plan for debridement to bilat foot ulcers when less tender, vascular surgery appreciated - no vascular intervention at this time, may need bka in future ESRD on hemodialysis Consulting nephrology (renal and transplant of [place]) for dialysis scheduling ,, [id number] diabetes mellitus ss, ada diet Mood disorder On sertraline Congestive heart failure with reduced ejection fraction with chronic hypoxia no exacerbation continue torsemide, beta-mohamud, HD On baseline 4 L supplemental oxygen CAD/cardiomyopathy On aspirin, Imdur and beta-mohamud Chronic pain with opioid seeking behavior On p.o. opioids. Poorly controlled hypertension due to medication noncompliance Resume home antihypertensives Chronic anemia of kidney disease DVT prophylaxis: Heparin Full code reason for continued hospitalization:iv abx and possible surgical debridment Quality Stroke Does the patient have a stroke diagnosis?: No VTE Prior VTE?: No VTE Risk Level:: Medical - moderate - high VTE Device Contraindication: Treatment Not Indicated VTE Drug Contraindication: N/A - Med Ordered
[2023-08-29 10:17] VITALS: BP 166/74; PULSE 90
[2023-08-29] MEDS: levETIRAcetam 1,000 MG TABLET 1000 MG PO (10:17)
[2023-08-29] MEDS: Piperacillin Sodium/Tazobactam 4.5 GM in 0.9 % Sodium Chloride 100 ML IV ×2 (10:17→22:15)
[2023-08-29] MEDS: Isosorbide Mononitrate 30 MG TAB.ER.24H PO (10:17)
[2023-08-29] MEDS: carvediloL 12.5 MG TABLET PO (10:17)
[2023-08-29] MEDS: Torsemide 20 MG TABLET 40 MG PO (10:17)
[2023-08-29 11:20] LABS: Glucose, Whole Blood 79 mg/dL (60-115)
[2023-08-29] MEDS: Doxycycline Hyclate 100 MG in 0.9 % Sodium Chloride 250 ML 66.67 MG IV (11:57)
--- NOTE | 2023-08-29 13:06 | MHC.CM.PN ---
EMR REVIEWED AND PER MD ROUNDS, PT IS NOT MEDICALLY CLEARED FOR DC. PLAN FOR POSSIBLE DEBRIDEMENT OF BILAT FOOT ULCERS PER SURGERY. CM WILL CONTINUE TO FOLLOW FOR ANY CHANGE TO DC PLAN.
[2023-08-29 15:45] VITALS: BP 166/94; PULSE 76; RESP 18; TEMP 36.2; O2SAT 100
--- NOTE | 2023-08-29 16:08 | HO.WOUND ---
Wound Consult: Initial 33yr old female admitted to [facility] on 08/27/23 - See progress notes and H&P for detailed history. Wound consult placed for Chronic Left and Right Plantar Wound - present on admission. Recent frequent admissions to [facility] - see chart for details Left Plantar Foot Etiology: Chronic - Diabetic Foot wound Wound Bed: dry adherent thick white slough Drainage / Odor: no odor noted - no drainage noted - Alginate stuck to wound bed Edges: ? callused Pao wound: Callused No Induration, No Fluctuance, No Erythema, No Warmth Pain: reports pain Goals of Treatment: Durafiber to allow for autolytic debridement Right Plantar Foot Etiology: Diabetic Foot wound Wound Bed: pale pink moist Drainage / Odor: mild lodor noted - dried drainage noted on dressing adherent to wound bed Edges: ? callused undermining circumferential max depth at 12 o'clock 1cm Pao wound: Callused and undermining noted - No Induration, No Fluctuance, No Erythema, No Warmth Pain: Reports pain Goals of Treatment: ? Durafiber AG for moisture managment and moist wound healing Recommend follow up out patient Wound Clinic at [address] [place] [address] and to call for an appointment at time of discharge. [phone].? Recommendations: 1. Turn and Reposition every 2 hours and as needed for patient comfort. 2. Off Load all bony prominences with use of pillows and heel boots as needed. 3. Provide adequate and supplemental nutrition. 4. Maintain blood glucose levels per Providers orders. 5. Right and Left Foot - Cleanse and irrigate with NS, Pat dry. Apply cut to size Durafiber AG to wound bed , cover with dry gauze, ABD pad and gauze wrap. Change every other day. Off Load Pressure. Recommend follow up out patient Wound Clinic at [address] [place] [address] and to call for an appointment at time of discharge. [phone].?
[2023-08-29 16:37] LABS: Glucose, Whole Blood 78 mg/dL (60-115)
[2023-08-29 19:30] VITALS: BP 140/85; PULSE 75; RESP 20; TEMP 36.1; O2SAT 95
--- NOTE | 2023-08-29 19:35 | PM.CNNEP ---
History of Present Illness Reason for Consult Consult date: 08/29/23 Reason for consult: ESRD Chief Complaint Chief complaint: foot infection History of Present Illness Narrative: RTANE Consulted for dailysis management 32 y/o ESRD h/o non-compliance adm w foot cellulitis; usu HD TTS at [facility] H/O 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, peripheral arterial disease status post bilateral TMA, poorly controlled hypertension due to noncompliance with medications, chronic hypoxic respiratory failure on 4 L baseline supplemental oxygen, congestive heart failure with reduced ejection fraction, mood disorder, chronic pain with opioid seeking behavior Review of Systems Review of Systems Follow up foot ulcer having pain to left foot Yes all other systems are reviewed and are negative Constitutional: Reports no additional constitutional complaints Eyes: Reports loss of vision Reports Normal hearing present Cardiovascular: Reports no additional cardiovascular complaints, Denies chest pain, Denies chest pain at rest, Denies chest pain with activity and Denies pedal edema Respiratory: Reports no additional respiratory complaints and Denies cough Gastrointestinal: Reports no additional gastrointestinal complaints and Denies abdominal pain Musculoskeletal: Denies abnormal gait, Reports arthralgias, Reports joint swelling, Denies muscle cramps and Denies radiating pain into limb Skin/Breast: Reports non-healing lesions, Denies skin ulcer and Denies wounds Reports Normal hearing present, Denies abnormal gait and Reports loss of vision Psychiatric: Reports no additional psychiatric complaints PMFSH Past Medical History Medical History Major depressive disorder, single episode, severe Non-compliance with renal dialysis Hypertensive urgency MDD (major depressive disorder) Hypertension Anemia ESRD (end stage renal disease) MDD (major depressive disorder), recurrent episode End-stage renal disease (ESRD) Foot ulcer CKD (chronic kidney disease) Hypertension Diabetic foot Vomiting Renal failure Hypertension Hyperkalemia Metabolic acidosis HFrEF (heart failure with reduced ejection fraction) ESRD on dialysis Migraine Diabetic foot ulcer associated with type 2 diabetes mellitus Chronic pain Gastroparesis Non-compliance with renal dialysis Hypertensive emergency Diabetes ESRD needing dialysis Cardiomyopathy delivery delivered Anemia in chronic kidney disease (CKD) CKD (chronic kidney disease) Headache, migraine Abnormal finding on echocardiogram Elevated troponin Chest pain Acute worsening of stage 3 chronic kidney disease Generalized edema Sepsis Cellulitis Pleural effusion CHF (congestive heart failure) (~06/07/22) Tachycardia Atypical chest pain Bone infection PAD (peripheral artery disease) Severe anemia Cellulitis and abscess of foot DM foot ulcer Osteomyelitis test positive test positive Asthma Depression with anxiety Diabetic retinopathy Type 2 diabetes mellitus with hyperglycemia, with long-term current use of insulin Blind right eye Diabetes Back pain Family History Family History Mother Coronary artery disease Myocardial infarction Stroke Diabetes mellitus Father Myocardial infarction Surgical History Surgical History 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 Social History Social History Household Members: Family Household Members Other:: sister Housing: Apartment Do you presently have visiting nurse or other home services: Yes Unable to assess alcohol history related to: Unknown Alcohol intake: never 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 Patient Tobacco Use Status: Never used Tobacco e-Cigarette/Vaping Use: Never Used Second Hand Smoke Exposure: No Use of substances other than those prescribed or required for medical reasons: No Currently Displaying Signs/Symptoms of Drug Intoxication Withdrawal: No Have you been hit, kicked, punched, or otherwise hurt by someone within the past year? If so, by whom?: No Do you feel safe in your current relationship?: Yes Is there a partner from a previous relationship who is making you feel unsafe now?: No Are you made to feel afraid or neglected: No Advance Directives: Yes Advance Directives Information Provided: Yes Advance Directives on File: Yes Advance Directives Date on File: 03/08/20 Do you have a plan to hurt others: No Plan Recently lost weight without trying: No Nutrition Risks: No Nutritional Risk Patient : No : No Poor oral hygiene: No service: No Current occupational status: unemployed and disabled Gender identity: Female Meds Allergies Allergy/AdvReac Type Severity Reaction Status Date / Time morphine [MORPHINE] Allergy Intermediate Itching Verified 08/27/23 19:17 azithromycin [From Zithromax] Allergy Hives Verified 08/27/23 19:17 gabapentin Allergy Facial Verified 08/27/23 19:17 Swelling tramadol Allergy Facial Verified 08/27/23 19:17 Swelling vancomycin Allergy Anaphylaxis Verified 08/27/23 19:17 Active Medications: Current Medications Acetaminophen (Acetaminophen 325 Mg Tablet) 650 mg PO Q6H PRN PRN Reason: Pain, Mild (Pain Scale 1-3), fever or headache Calcium Carbonate (Calcium Carbonate 750 Mg Tab.Chew) 750 mg PO Q4H PRN PRN Reason: Heartburn Carvedilol (Carvedilol 12.5 Mg Tablet) 12.5 mg PO BID [facility]; Protocol Last Admin: 08/29/23 10:17 Dose: 12.5 mg Diphenhydramine HCl (Diphenhydramine Hcl 50 Mg/Ml Vial) 25 mg IVPUSH Q6H PRN PRN Reason: Itching Last Admin: 08/29/23 18:28 Dose: 25 mg Glucose (Glucose Gel 15 Gm Gel..Gram.) 15 gm PO Q15M PRN; Protocol PRN Reason: per Hypoglycemia Standing Ord. Heparin Sodium (Porcine) (Heparin Sodium,Porcine 5,000 Unit/Ml Vial) 5,000 unit SUBCUT Q12H [facility] Last Admin: 08/29/23 09:30 Dose: Not Given Hydromorphone HCl (Hydromorphone Hcl 0.5 Mg/0.5 Ml Syringe) 0.5 mg IVPUSH Q4H PRN; Protocol PRN Reason: Pain, Severe (Pain Scale 7-10) Last Admin: 08/29/23 15:39 Dose: 0.5 mg Doxycycline Hyclate 100 mg/ (Sodium Chloride) 250 mls @ 166.67 mls/hr IV Q12H [facility] Last Infusion: 08/29/23 15:42 Dose: Infused Piperacillin Sod/Tazobactam (Sod 4.5 gm/ Sodium Chloride) 100 mls @ 200 mls/hr IV Q12H [facility] Last Infusion: 08/29/23 12:02 Dose: Infused Dextrose (D10) 250 mls @ 750 mls/hr IV Q15M PRN; Protocol PRN Reason: per Hypoglycemia Standing Ord. Insulin Human Lispro (Insulin Lispro 100 Unit/Ml 3 Ml Vial) 0 unit SUBCUT QIDACHS [facility]; Protocol Last Admin: 08/29/23 16:41 Dose: Not Given Isosorbide Mononitrate (Isosorbide Mononitrate 30 Mg Tab.Er.24h) 30 mg PO DAILY [facility]; Protocol Last Admin: 08/29/23 10:17 Dose: 30 mg Levetiracetam (Levetiracetam 1,000 Mg Tablet) 1,000 mg PO DAILY [facility] Last Admin: 08/29/23 10:17 Dose: 1,000 mg Magnesium Hydroxide (Milk Of Magnesia 30 Ml Oral.Susp) 30 ml PO DAILY PRN PRN Reason: Constipation Melatonin (Melatonin 3 Mg Tablet) 6 mg PO BEDTIME PRN PRN Reason: Insomnia Ondansetron HCl (Ondansetron Hcl 4 Mg/2 Ml Vial) 4 mg IVPUSH Q4H PRN PRN Reason: Nausea and Vomiting Last Admin: 08/29/23 01:09 Dose: 4 mg Sodium Chloride (0.9 % Sodium Chloride Flush 3 Ml Syringe) 3 ml IVFLUSH QSHIFT [facility] Last Admin: 08/29/23 15:04 Dose: Not Given Torsemide (Torsemide 20 Mg Tablet) 40 mg PO BID [facility]; Protocol Last Admin: 08/29/23 10:17 Dose: 40 mg Home Medications ?Medication ?Instructions ?Recorded ?Confirmed ?Last Taken ?Type carvedilol 12.5 mg tablet 12.5 mg PO BID 06/05/23 08/28/23 06/16/23 History docusate sodium 100 mg capsule 100 mg PO DAILY PRN constipation 06/05/23 08/28/23 Unknown History isosorbide mononitrate 30 mg 30 mg PO DAILY 06/05/23 08/28/23 06/16/23 History tablet,extended release 24 hr torsemide 20 mg tablet 40 mg PO BID 06/05/23 08/28/23 06/16/23 History levetiracetam 1,000 mg tablet 1,000 mg PO DAILY 06/17/23 08/28/23 06/16/23 History oxycodone 5 mg tablet 5 mg PO TID PRN Pain 06/17/23 08/28/23 Unknown History calcium carbonate (Calcium Antacid) 1 tab PO TIDWM 08/28/23 08/28/23 Unknown History cholecalciferol (vitamin D3) 50 50 mcg PO DAILY 08/28/23 08/28/23 Unknown History mcg (2,000 unit) capsule omeprazole 20 mg capsule,delayed 20 mg PO DAILY 08/28/23 08/28/23 Unknown History release Physical Exam Vital Signs: Last Vital Signs Temp 96.9 F 08/29/23 19:30 Pulse 75 08/29/23 19:30 Resp 20 08/29/23 19:30 BP 140/85 H 08/29/23 19:30 Pulse Ox 95 08/29/23 19:30 O2 Del Method Nasal Cannula 08/29/23 19:30 O2 Flow Rate 3 08/29/23 19:30 Oxygen Flow Rate 3 08/27/23 19:13 BMI result Body Mass Index 30.4 Const General: cooperative, healthy appearing, comfortable, lethargic and tired appearing Nutritional Appearance: well nourished Orientation/consciousness: oriented to person, oriented to place, oriented to time and lethargic HEENT Head: Yes normal to inspection, Yes normocephalic and Yes atraumatic Ears: hearing grossly normal bilaterally Neck Neck: Yes normal visual inspection Carotids: no bruits Chest Chest palpation & inspection: normal inspection of the chest Resp Effort & Inspection: normal respiratory effort, able to speak in complete sentences, no audible wheezes, no cough and no respiratory distress Auscultation: clear to auscultation bilaterally, no crackles, no rales, no rhonchi and no wheezes Cardio Rate: regular rate Rhythm: regular rhythm Heart sounds: S1 normal heart sound present and S2 normal heart sound present Bruits: no carotid bruits Peripheral pulses: Peripheral pulses 2+ throughout GI Inspection: Yes normal to inspection Skin Other: Left foot plantar ulceration approximately 2 cm in diameter. In addition trans met flap more towards the medial aspect approximately 2 cm opening both appear relatively clean. General skin exam: no rashes or lesions noted Wounds: no wounds Hair: normal Neuro General: oriented to person, oriented to place and oriented to time Cranial nerves: Yes CN's II-XII intact bilaterally and Yes Normal hearing present Cognition (Neuro): normal cognition Motor exam (neuro): 5/5 motor strength present throughout Extrem Other: venous exam: No significant superficial varicosities or spider telangiectasias, minimal edema General: No clubbing, No cyanosis and No edema Psych Appearance: grossly normal Mental Status: mental status grossly normal Speech and movement: Normal speech and movement present Results Lab Results 08/29/23 06:49 08/29/23 06:49 Lab results: Chemistry 08/27/23 08/29/23 20:04 06:49 Sodium 136 132 L Potassium 4.8 4.0 Carbon Dioxide 20 L 23 BUN 61 H 43 H Creatinine 6.93 H* 4.65 H* Calcium 7.9 L D 8.8 D Hematology 08/27/23 08/29/23 20:04 06:49 WBC 7.5 3.6 L Hgb 8.2 L 8.2 L Plt Count 150 L 177 Assessment and Plan (1) Diabetic foot infection: Status: Acute Plan ESRD: TTS; mised [place] so HD today Nephrogenic anemia HTN Non-compliance Cellulitis and ques osteo REC: HD again Sun then get her back on TTS scedule; meds as noted; epo as ordered will follow w team Procedures Date of Service Date of Service: 08/29/23
[2023-08-29] MEDS: 0.9 % Sodium Chloride Flush 3 ML SYRINGE IVFLUSH (20:50)
[2023-08-29] MEDS: Doxycycline Hyclate 100 MG in 0.9 % Sodium Chloride 250 ML 166.67 MG IV (22:53)
[2023-08-30] MEDS: HYDROmorphone HCl 0.5 MG/0.5 ML SYRINGE IVPUSH ×6 (00:36→20:25)
[2023-08-30] MEDS: diphenhydrAMINE HCL 50 MG/ML VIAL 25 MG IVPUSH ×4 (00:36→20:25)
--- NOTE | 2023-08-30 03:26 | PC.NURSE ---
Pt seen on bed at the start of shift alert and oriented, refused POC taken, also refused Coreg and Torsemide, DR. Sewell was made aware.
[2023-08-30 03:38] VITALS: BP 163/79; PULSE 75; RESP 20; TEMP 36; O2SAT 98
[2023-08-30 07:09] VITALS: BP 144/91; PULSE 74; RESP 18; TEMP 36; O2SAT 100
[2023-08-30 07:43] LABS: Glucose, Whole Blood 64 mg/dL (60-115)
[2023-08-30] MEDS: 0.9 % Sodium Chloride Flush 3 ML SYRINGE IVFLUSH ×3 (08:37→23:37)
--- NOTE | 2023-08-30 09:07 | PC.NURSE ---
Pt refused all morning medications except pain medication. Will attempt again later this morning
--- NOTE | 2023-08-30 09:10 | HO.PM.IMPN ---
Subjective Subjective Date of Service: 08/30/23 Interval History: improved pruritis ENT Ears, Nose, Mouth, and Throat: Reports Normal hearing present Neurologic Neurologic: Reports Normal hearing present Physical Exam Vital Signs: Vital Signs: Last Vital Signs Temp 96.8 F 08/30/23 07:09 Pulse 74 08/30/23 07:09 Resp 18 08/30/23 07:09 BP 144/91 H 08/30/23 07:09 Pulse Ox 100 08/30/23 07:09 O2 Del Method Nasal Cannula 08/30/23 07:09 O2 Flow Rate 3 08/30/23 07:09 Oxygen Flow Rate 3 08/27/23 19:13 BMI result Body Mass Index 30.4 Const: General: cooperative, healthy appearing, comfortable, lethargic and tired appearing Nutritional Appearance: well nourished Orientation/consciousness: oriented to person, oriented to place, oriented to time and lethargic HEENT: Head: Yes normal to inspection, Yes normocephalic and Yes atraumatic Ears: hearing grossly normal bilaterally Neck: Neck: Yes normal visual inspection Carotids: no bruits Chest: Chest palpation & inspection: normal inspection of the chest Resp: Effort & Inspection: normal respiratory effort, able to speak in complete sentences, no audible wheezes, no cough and no respiratory distress Auscultation: clear to auscultation bilaterally, no crackles, no rales, no rhonchi and no wheezes Cardio: Rate: regular rate Rhythm: regular rhythm Heart sounds: S1 normal heart sound present and S2 normal heart sound present Bruits: no carotid bruits Peripheral pulses: Peripheral pulses 2+ throughout GI: Inspection: Yes normal to inspection Skin: Other: Left foot plantar ulceration approximately 2 cm in diameter. In addition trans met flap more towards the medial aspect approximately 2 cm opening both appear relatively clean. General skin exam: no rashes or lesions noted Wounds: no wounds Hair: normal Neuro: General: oriented to person, oriented to place and oriented to time Cranial nerves: Yes Normal hearing present Cognition (Neuro): normal cognition Motor exam (neuro): 5/5 motor strength present throughout Extrem: Other: venous exam: No significant superficial varicosities or spider telangiectasias, minimal edema General: No clubbing, No cyanosis and No edema Psych: Appearance: grossly normal Mental Status: mental status grossly normal Speech and movement: Normal speech and movement present Objective Data Active Medications Acetaminophen (Acetaminophen 325 Mg Tablet) 650 mg PO Q6H PRN PRN Reason: Pain, Mild (Pain Scale 1-3), fever or headache Calcium Carbonate (Calcium Carbonate 750 Mg Tab.Chew) 750 mg PO Q4H PRN PRN Reason: Heartburn Carvedilol (Carvedilol 12.5 Mg Tablet) 12.5 mg PO BID [facility]; Protocol Last Admin: 08/29/23 21:36 Dose: Not Given Documented By: OLGA Non-Admin Reason: Patient Refused Comments: DR. Sewell was aware Diphenhydramine HCl (Diphenhydramine Hcl 50 Mg/Ml Vial) 25 mg IVPUSH Q6H PRN PRN Reason: Itching Last Admin: 08/30/23 06:38 Dose: 25 mg Documented By: OLGA Glucose (Glucose Gel 15 Gm Gel..Gram.) 15 gm PO Q15M PRN; Protocol PRN Reason: per Hypoglycemia Standing Ord. Heparin Sodium (Porcine) (Heparin Sodium,Porcine 5,000 Unit/Ml Vial) 5,000 unit SUBCUT Q12H [facility] Last Admin: 08/29/23 22:23 Dose: Not Given Documented By: OLGA Non-Admin Reason: Patient Refused Hydromorphone HCl (Hydromorphone Hcl 0.5 Mg/0.5 Ml Syringe) 0.5 mg IVPUSH Q4H PRN; Protocol PRN Reason: Pain, Severe (Pain Scale 7-10) Last Admin: 08/30/23 08:37 Dose: 0.5 mg Documented By: HAIM Doxycycline Hyclate 100 mg/ (Sodium Chloride) 250 mls @ 166.67 mls/hr IV Q12H [facility] Last Infusion: 08/30/23 00:28 Dose: Infused Documented By: OLGA Piperacillin Sod/Tazobactam (Sod 4.5 gm/ Sodium Chloride) 100 mls @ 200 mls/hr IV Q12H [facility] Last Infusion: 08/29/23 22:56 Dose: Infused Documented By: OLGA Dextrose (D10) 250 mls @ 750 mls/hr IV Q15M PRN; Protocol PRN Reason: per Hypoglycemia Standing Ord. Insulin Human Lispro (Insulin Lispro 100 Unit/Ml 3 Ml Vial) 0 unit SUBCUT QIDACHS [facility]; Protocol Last Admin: 08/30/23 08:28 Dose: Not Given Documented By: HAIM Non-Admin Reason: No Insulin Coverage Isosorbide Mononitrate (Isosorbide Mononitrate 30 Mg Tab.Er.24h) 30 mg PO DAILY [facility]; Protocol Last Admin: 08/29/23 10:17 Dose: 30 mg Documented By: RONAL Levetiracetam (Levetiracetam 1,000 Mg Tablet) 1,000 mg PO DAILY [facility] Last Admin: 08/29/23 10:17 Dose: 1,000 mg Documented By: RONAL Magnesium Hydroxide (Milk Of Magnesia 30 Ml Oral.Susp) 30 ml PO DAILY PRN PRN Reason: Constipation Melatonin (Melatonin 3 Mg Tablet) 6 mg PO BEDTIME PRN PRN Reason: Insomnia Ondansetron HCl (Ondansetron Hcl 4 Mg/2 Ml Vial) 4 mg IVPUSH Q4H PRN PRN Reason: Nausea and Vomiting Last Admin: 08/29/23 01:09 Dose: 4 mg Documented By: CHRISTAL Sodium Chloride (0.9 % Sodium Chloride Flush 3 Ml Syringe) 3 ml IVFLUSH QSHIFT [facility] Last Admin: 08/30/23 08:37 Dose: 3 ml Documented By: HAIM Torsemide (Torsemide 20 Mg Tablet) 40 mg PO BID [facility]; Protocol Last Admin: 08/29/23 21:37 Dose: Not Given Documented By: OLGA Non-Admin Reason: Patient Refused Comments: Dr. Sewell was aware Labs 08/29/23 06:49 08/29/23 06:49 Labs: Laboratory Results - last 24 hr 08/29/23 08/29/23 08/30/23 11:10 16:31 07:14 POC Glucose 79 78 64 Microbiology Microbiology Results: Microbiology 08/27/23 20:14 Blood Culture - Preliminary Blood - Venous No growth after 48 hours. 08/27/23 20:03 Blood Culture - Preliminary Blood - Venous No growth after 48 hours. 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 Diabetic foot infection with nonhealing ulcers and purulent cellulitis Noncompliant with p.o. antibiotics outpatient. continue zosyn and doxycycline MRI of left foot neg for osteomyelitis and abscess General surgery consult> silver alginate to right foot ulcer, plan for debridement to bilat foot ulcers when less tender, vascular surgery appreciated - no vascular intervention at this time, may need bka in future ESRD on hemodialysis nephrology (renal and transplant of [place]) for dialysis scheduling T,,SA [id number] diabetes mellitus ss, ada diet Mood disorder On sertraline Congestive heart failure with reduced ejection fraction with chronic hypoxia no exacerbation continue torsemide, beta-mohamud, HD On baseline 4 L supplemental oxygen CAD/cardiomyopathy On aspirin, Imdur and beta-mohamud Chronic pain with opioid seeking behavior On p.o. opioids. Poorly controlled hypertension due to medication noncompliance Resume home antihypertensives Chronic anemia of kidney disease DVT prophylaxis: Heparin Full code reason for continued hospitalization:iv abx and possible surgical debridment Quality Stroke Does the patient have a stroke diagnosis?: No VTE Prior VTE?: No VTE Risk Level:: Medical - moderate - high VTE Device Contraindication: Treatment Not Indicated VTE Drug Contraindication: N/A - Med Ordered
[2023-08-30 09:15] LABS: Glucose, Whole Blood 101 mg/dL (60-115)
[2023-08-30] MEDS: Piperacillin Sodium/Tazobactam 4.5 GM in 0.9 % Sodium Chloride 100 ML IV ×2 (10:11→23:03)
[2023-08-30 10:37] LABS: Hematocrit 25.1 % (37.0-47.0); Hemoglobin 8.1 g/dl (12.0-16.0); Mean Corpuscular HGB Conc 32.3 g/dl (31.0-35.0); Mean Corpuscular Hemoglobin 31.4 pg (27.0-33.0); Mean Corpuscular Volume 97.3 fL (80.0-98.0); Mean Platelet Volume 11.7 fL (9.4-12.3); Platelet Count 155 X10*3/uL (160-400); Red Blood Count 2.58 X10*6/uL (4.20-5.50); Red Cell Distribution Width 15.5 % (11.0-16.0)
[2023-08-30 10:38] LABS: White Blood Count 2.3 X10*3/uL (4.8-10.8)
[2023-08-30 10:54] LABS: Anion Gap 16 (12-20); Blood Urea Nitrogen 41 mg/dL (9-16); Calcium 8.4 mg/dL (8.4-10.2); Carbon Dioxide 24 mmol/L (22-29); Chloride 99 mmol/L (96-108); Creatinine Clr Calc Pharmacy 15.5; Estimated Glomerular Filt Rate 9; Glucose Fasting 94 mg/dL (60-99); Potassium 4.1 mmol/L (3.3-5.1); Sodium 135 mmol/L (135-145)
[2023-08-30 11:20] LABS: Glucose, Whole Blood 99 mg/dL (60-115)
[2023-08-30] MEDS: Doxycycline Hyclate 100 MG in 0.9 % Sodium Chloride 250 ML 166.7 MG IV (12:29)
[2023-08-30 15:12] VITALS: BP 173/83; PULSE 84; RESP 18; TEMP 36; O2SAT 96
[2023-08-30 16:15] LABS: Glucose, Whole Blood 118 mg/dL (60-115)
[2023-08-30 20:00] VITALS: BP 142/85; PULSE 77; RESP 16; TEMP 36.1; O2SAT 96
[2023-08-31] MEDS: diphenhydrAMINE HCL 50 MG/ML VIAL 25 MG IVPUSH ×4 (02:19→22:08)
[2023-08-31] MEDS: HYDROmorphone HCl 0.5 MG/0.5 ML SYRINGE IVPUSH ×5 (02:20→22:33)
--- NOTE | 2023-08-31 03:45 | PC.NURSE ---
pt refused her hs medications po stating i dont take any pills at night and heparin sq also refused . md was notified this is not first time she refused meds
--- NOTE | 2023-08-31 07:56 | PM.EVENT ---
Event Note Date of Service: 08/31/23 Event Note: Visited patient, unfortually she is in HD now. Will check back later for possible bedside debridement Time Spent With Patient Time: Total time managing care of this patient today ____ minutes.
--- NOTE | 2023-08-31 09:17 | P.PNIM_ITS ---
Subjective Subjective Date of Service: 08/31/23 Interval History: itchy with hd ENT Ears, Nose, Mouth, and Throat: Reports Normal hearing present Neurologic Neurologic: Reports Normal hearing present Physical Exam 2 Vital Signs: Vital Signs: Last Vital Signs Temp 97.0 F 08/30/23 20:00 Pulse 77 08/30/23 20:00 Resp 16 08/30/23 20:00 BP 142/85 H 08/30/23 20:00 Pulse Ox 96 08/30/23 20:00 O2 Del Method Nasal Cannula 08/30/23 20:00 O2 Flow Rate 3 08/30/23 20:00 Oxygen Flow Rate 3 08/27/23 19:13 BMI result Body Mass Index 30.4 Const: General: cooperative, healthy appearing, comfortable, lethargic and tired appearing Nutritional Appearance: well nourished O rientation/consciousness: oriented to person, oriented to place, oriented to time and lethargic HEENT: Head: Yes normal to inspection, Yes normocephalic and Yes atraumatic Ears: hearing grossly normal bilaterally Neck: Neck: Yes normal visual inspection Carotids: no bruits Chest: Chest palpation & inspection: normal inspection of the chest Resp: Effort & Inspection: normal respiratory effort, able to speak in complete sentences, no audible wheezes, no cough and no respiratory distress Auscultation: clear to auscultation bilaterally, no crackles, no rales, no rhonchi and no wheezes Cardio: Rate: regular rate Rhythm: regular rhythm Heart sounds: S1 normal heart sound present and S2 normal heart sound present Bruits: no carotid bruits Peripheral pulses: Peripheral pulses 2+ throughout GI: Inspection: Yes normal to inspection Skin: Other: Left foot plantar ulceration approximately 2 cm in diameter. In addition trans met flap more towards the medial aspect approximately 2 cm opening both appear relatively clean. General skin exam: no rashes or lesions noted Wounds: no wounds Hair: normal Neuro: General: oriented to person, oriented to place and oriented to time Cranial nerves: Yes Normal hearing present Cognition (Neuro): normal cognition Motor exam (neuro): 5/5 motor strength present throughout Extrem: Other: venous exam: No significant superficial varicosities or spider telangiectasias, minimal edema General: No clubbing, No cyanosis and No edema Psych: Appearance: grossly normal Mental Status: mental status grossly normal Speech and movement: Normal speech and movement present Objective Data Active Medications Acetaminophen (Acetaminophen 325 Mg Tablet) 650 mg PO Q6H PRN PRN Reason: Pain, Mild (Pain Scale 1-3), fever or headache Calcium Carbonate (Calcium Carbonate 750 Mg Tab.Chew) 750 mg PO Q4H PRN PRN Reason: Heartburn Carvedilol (Carvedilol 12.5 Mg Tablet) 12.5 mg PO BID [facility]; Protocol Last Admin: 08/30/23 20:28 Dose: Not Given Documented By: RUSSELL Non-Admin Reason: Patient Refused Diphenhydramine HCl (Diphenhydramine Hcl 50 Mg/Ml Vial) 25 mg IVPUSH Q6H PRN PRN Reason: Itching Last Admin: 08/31/23 08:44 Dose: 25 mg Documented By: MIKE Doxycycline Monohydrate (Doxycycline Monohydrate 100 Mg Capsule) 100 mg PO Q12H [facility] Last Admin: 08/30/23 22:58 Dose: Not Given Documented By: RUSSELL Non-Admin Reason: Patient Refused Glucose (Glucose Gel 15 Gm Gel..Gram.) 15 gm PO Q15M PRN; Protocol PRN Reason: per Hypoglycemia Standing Ord. Heparin Sodium (Porcine) (Heparin Sodium,Porcine 5,000 Unit/Ml Vial) 5,000 unit SUBCUT Q12H [facility] Last Admin: 08/30/23 23:08 Dose: Not Given Documented By: RUSSELL Non-Admin Reason: Patient Refused Hydromorphone HCl (Hydromorphone Hcl 0.5 Mg/0.5 Ml Syringe) 0.5 mg IVPUSH Q4H PRN; Protocol PRN Reason: Pain, Severe (Pain Scale 7-10) Last Admin: 08/31/23 08:44 Dose: 0.5 mg Documented By: MIKE Piperacillin Sod/Tazobactam (Sod 4.5 gm/ Sodium Chloride) 100 mls @ 200 mls/hr IV Q12H [facility] Last Infusion: 08/30/23 23:49 Dose: Infused Documented By: RUSSELL Dextrose (D10) 250 mls @ 750 mls/hr IV Q15M PRN; Protocol PRN Reason: per Hypoglycemia Standing Ord. Insulin Human Lispro (Insulin Lispro 100 Unit/Ml 3 Ml Vial) 0 unit SUBCUT QIDACHS [facility]; Protocol Last Admin: 08/31/23 07:46 Dose: Not Given Documented By: MIKE Non-Admin Reason: Off unit: Dialysis Isosorbide Mononitrate (Isosorbide Mononitrate 30 Mg Tab.Er.24h) 30 mg PO DAILY [facility]; Protocol Last Admin: 08/30/23 10:48 Dose: Not Given Documented By: HAIM Non-Admin Reason: Patient Refused Levetiracetam (Levetiracetam 1,000 Mg Tablet) 1,000 mg PO DAILY [facility] Last Admin: 08/30/23 10:48 Dose: Not Given Documented By: HAIM Non-Admin Reason: Patient Refused Magnesium Hydroxide (Milk Of Magnesia 30 Ml Oral.Susp) 30 ml PO DAILY PRN PRN Reason: Constipation Melatonin (Melatonin 3 Mg Tablet) 6 mg PO BEDTIME PRN PRN Reason: Insomnia Ondansetron HCl (Ondansetron Hcl 4 Mg/2 Ml Vial) 4 mg IVPUSH Q4H PRN PRN Reason: Nausea and Vomiting Last Admin: 08/29/23 01:09 Dose: 4 mg Documented By: CHRISTAL Sodium Chloride (0.9 % Sodium Chloride Flush 3 Ml Syringe) 3 ml IVFLUSH QSHIFT [facility] Last Admin: 08/31/23 07:46 Dose: Not Given Documented By: MIKE Non-Admin Reason: Off unit: Dialysis Torsemide (Torsemide 20 Mg Tablet) 40 mg PO BID [facility]; Protocol Last Admin: 08/30/23 20:29 Dose: Not Given Documented By: RUSSELL Non-Admin Reason: Patient Refused Labs 08/30/23 10:11 08/30/23 10:11 Labs: Laboratory Results - last 24 hr 08/30/23 08/30/23 08/30/23 10:11 11:05 16:10 MCV 97.3 MCH 31.4 MCHC 32.3 RDW 15.5 Plt Count 155 L MPV 11.7 Absolute Nucleated RBC 0.000 Nucleated RBC % (auto) 0.0 Anion Gap 16 Estim Creat Clear Calc 15.5 Estimated GFR 9 POC Glucose 99 118 H Fasting Glucose 94 Calcium 8.4 Assessment and Plan (1) Diabetic foot infection: Status: Acute Plan 32F PMH ESRD on hemodialysis, 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 Diabetic foot infection with nonhealing ulcers and purulent cellulitis Noncompliant with p.o. antibiotics outpatient. continue zosyn and doxycycline MRI of left foot neg for osteomyelitis and abscess General surgery consult> silver alginate to right foot ulcer, plan for debridement to bilat foot ulcers, probably today vascular surgery appreciated - no vascular intervention at this time, may need bka in future ESRD on hemodialysis nephrology (renal and transplant of [place]) for dialysis scheduling T,,SA [id number] diabetes mellitus ss, ada diet Mood disorder On sertraline Congestive heart failure with reduced ejection fraction with chronic hypoxia no exacerbation continue torsemide, beta-mohamud, HD On baseline 3 L supplemental oxygen CAD/cardiomyopathy On aspirin, Imdur and beta-mohamud Chronic pain with opioid seeking behavior On p.o. opioids. Poorly controlled hypertension due to medication noncompliance Resume home antihypertensives Chronic anemia of kidney disease DVT prophylaxis: Heparin Full code reason for continued hospitalization:iv abx and possible surgical debridment Quality Stroke Does the patient have a stroke diagnosis?: No VTE Prior VTE?: No VTE Risk Level:: Medical - moderate - high VTE Device Contraindication: Treatment Not Indicated VTE Drug Contraindication: N/A - Med Ordered
[2023-08-31 10:42] LABS: Glucose, Whole Blood 56 mg/dL (60-115)
--- NOTE | 2023-08-31 10:43 | MHC.CM.PN ---
EM REVIEWED AND PER MD ROUNDS, PT IS NOT MEDICALLY CLEARED FOR DC (MAY HAVE BEDSIDE DEBRIDEMENT OF FOOT ULCER) MAY DC HOME OVER WEEKEND. CM WILL CONTINUE TO FOLLOW FOR ANY CHANGE TO DC PLAN/NEEDS.
[2023-08-31 10:46] VITALS: BP 185/91; PULSE 80; RESP 16; TEMP 36.3; O2SAT 100
[2023-08-31] MEDS: Piperacillin Sodium/Tazobactam 4.5 GM in 0.9 % Sodium Chloride 100 ML IV ×2 (10:54→22:07)
[2023-08-31 11:23] LABS: Glucose, Whole Blood 88 mg/dL (60-115)
--- NOTE | 2023-08-31 12:35 | PM.PNNEP ---
Subjective Subjective Date of Service: 08/31/23 Interval history: c/o gen mailse Physical Exam Vital Signs: Vital Signs: Last Vital Signs Temp 97.3 F 08/31/23 10:46 Pulse 80 08/31/23 10:46 Resp 16 08/31/23 10:46 BP 185/91 H 08/31/23 10:46 Pulse Ox 100 08/31/23 10:46 O2 Del Method Nasal Cannula 08/31/23 10:46 O2 Flow Rate 3 08/31/23 10:46 Oxygen Flow Rate 3 08/27/23 19:13 BMI result Body Mass Index 30.4 Const: General: cooperative, healthy appearing, comfortable, lethargic and tired appearing Nutritional Appearance: well nourished Orientation/consciousness: oriented to person, oriented to place, oriented to time and lethargic HEENT: Head: Yes normal to inspection, Yes normocephalic and Yes atraumatic Ears: hearing grossly normal bilaterally Neck: Neck: Yes normal visual inspection Carotids: no bruits Chest: Chest palpation & inspection: normal inspection of the chest Resp: Effort & Inspection: normal respiratory effort, able to speak in complete sentences, no audible wheezes, no cough and no respiratory distress Auscultation: clear to auscultation bilaterally, no crackles, no rales, no rhonchi and no wheezes Cardio: Rate: regular rate Rhythm: regular rhythm Heart sounds: S1 normal heart sound present and S2 normal heart sound present Bruits: no carotid bruits Peripheral pulses: Peripheral pulses 2+ throughout GI: Inspection: Yes normal to inspection Skin: Other: Left foot plantar ulceration approximately 2 cm in diameter. In addition trans met flap more towards the medial aspect approximately 2 cm opening both appear relatively clean. General skin exam: no rashes or lesions noted Wounds: no wounds Hair: normal Neuro: General: oriented to person, oriented to place and oriented to time Cranial nerves: Yes CN's II-XII intact bilaterally and Yes Normal hearing present Cognition (Neuro): normal cognition Motor exam (neuro): 5/5 motor strength present throughout Extrem: Other: venous exam: No significant superficial varicosities or spider telangiectasias, minimal edema General: No clubbing, No cyanosis and No edema Psych: Appearance: grossly normal Mental Status: mental status grossly normal Speech and movement: Normal speech and movement present Objective Data Labs 08/30/23 10:11 08/30/23 10:11 Labs: Laboratory Results - last 24 hr 08/30/23 08/31/23 08/31/23 16:10 10:37 11:20 POC Glucose 118 H 56 L* 88 Microbiology Microbiology Results: Microbiology 08/27/23 20:14 Blood - Venous Blood Culture - Preliminary No growth after 48 hours. 08/27/23 20:03 Blood - Venous Blood Culture - Preliminary No growth after 48 hours. Procedures Date of Service Date of Service: 08/31/23 Assessment & Plan Assessment and plan (1) Diabetic foot infection: Status: Acute Plan ESRD: TTS; mised [place] so HD today Nephrogenic anemia HTN Non-compliance Cellulitis and ques osteo REC: HD again Fri then get her back on TTS scedule; meds as noted; epo as ordered will follow w team Time Spent With Patient Time: Total time managing care of this patient today ____ minutes. Progress Note: Quality Stroke Does the patient have a stroke diagnosis?: No
--- NOTE | 2023-08-31 12:38 | P.PNNP_ITS ---
Subjective Subjective Date of Service: 08/31/23 Interval history: c/o gen mailse Physical Exam 2 Vital Signs: Vital Signs: Last Vital Signs Temp 97.3 F 08/31/23 10:46 Pulse 80 08/31/23 10:46 Resp 16 08/31/23 10:46 BP 185/91 H 08/31/23 10:46 Pulse Ox 100 08/31/23 10:46 O2 Del Method Nasal Cannula 08/31/23 10:46 O2 Flow Rate 3 08/31/23 10:46 Oxygen Flow Rate 3 08/27/23 19:13 BMI result Body Mass Index 30.4 Const: General: cooperative, healthy appearing, comfortable, lethargic and tired appearing Nutritional Appearance: well nourished O rientation/consciousness: oriented to person, oriented to place, oriented to time and lethargic HEENT: Head: Yes normal to inspection, Yes normocephalic and Yes atraumatic Ears: hearing grossly normal bilaterally Neck: Neck: Yes normal visual inspection Carotids: no bruits Chest: Chest palpation & inspection: normal inspection of the chest Resp: Effort & Inspection: normal respiratory effort, able to speak in complete sentences, no audible wheezes, no cough and no respiratory distress Auscultation: clear to auscultation bilaterally, no crackles, no rales, no rhonchi and no wheezes Cardio: Rate: regular rate Rhythm: regular rhythm Heart sounds: S1 normal heart sound present and S2 normal heart sound present Bruits: no carotid bruits Peripheral pulses: Peripheral pulses 2+ throughout GI: Inspection: Yes normal to inspection Skin: Other: Left foot plantar ulceration approximately 2 cm in diameter. In addition trans met flap more towards the medial aspect approximately 2 cm opening both appear relatively clean. General skin exam: no rashes or lesions noted Wounds: no wounds Hair: normal Neuro: General: oriented to person, oriented to place and oriented to time Cranial nerves: Yes CN's II-XII intact bilaterally and Yes Normal hearing present Cognition (Neuro): normal cognition Motor exam (neuro): 5/5 motor strength present throughout Extrem: Other: venous exam: No significant superficial varicosities or spider telangiectasias, minimal edema General: No clubbing, No cyanosis and No edema Psych: Appearance: grossly normal Mental Status: mental status grossly normal Speech and movement: Normal speech and movement present Objective Data Labs 08/30/23 10:11 08/30/23 10:11 Labs: Laboratory Results - last 24 hr 08/30/23 08/31/23 08/31/23 16:10 10:37 11:20 POC Glucose 118 H 56 L* 88 Microbiology Microbiology Results: Microbiology 08/27/23 20:14 Blood - Venous Blood Culture - Preliminary No growth after 48 hours. 08/27/23 20:03 Blood - Venous Blood Culture - Preliminary No growth after 48 hours. Procedures Date of Service Date of Service: 08/31/23 Assessment & Plan Assessment and plan (1) Diabetic foot infection: Status: Acute Plan ESRD: TTS; mised [place] so HD today Nephrogenic anemia HTN Non-compliance Cellulitis and ques osteo REC: HD today and then get her back on TTS schedule; meds as noted; epo as ordered will follow w team Time Spent With Patient Time: Total time managing care of this patient today ____ minutes. Progress Note: Quality Stroke Does the patient have a stroke diagnosis?: No
--- NOTE | 2023-08-31 13:09 | P.PNGS_ITS ---
Subjective Subjective Date of Service: 08/31/23 Interval history: C/o pain at ulcer sites. Physical Exam 2 Vital Signs: Vital Signs: Last Vital Signs Temp 97.3 F 08/31/23 10:46 Pulse 80 08/31/23 10:46 Resp 16 08/31/23 10:46 BP 185/91 H 08/31/23 10:46 Pulse Ox 100 08/31/23 10:46 O2 Del Method Nasal Cannula 08/31/23 10:46 O2 Flow Rate 3 08/31/23 10:46 Oxygen Flow Rate 3 08/27/23 19:13 BMI result Body Mass Index 30.4 Const: General: comfortable, no acute distress and alert O rientation/consciousness: patient oriented x3 Neuro: General: patient oriented x3 and moves all extremities Extrem: Other: left foot- plantar ulcer with very thick callus, ulcer bed without granulation right foot metatarsal amp site- medial aspect with 2cm ulcer and thick surrounding callus, ulcer base with granulation tissue, clean appearing Objective Data Active Medications Acetaminophen (Acetaminophen 325 Mg Tablet) 650 mg PO Q6H PRN PRN Reason: Pain, Mild (Pain Scale 1-3), fever or headache Calcium Carbonate (Calcium Carbonate 750 Mg Tab.Chew) 750 mg PO Q4H PRN PRN Reason: Heartburn Carvedilol (Carvedilol 12.5 Mg Tablet) 12.5 mg PO BID [facility]; Protocol Last Admin: 08/31/23 10:38 Dose: Not Given Documented By: MIKE Non-Admin Reason: Patient Refused Diphenhydramine HCl (Diphenhydramine Hcl 50 Mg/Ml Vial) 25 mg IVPUSH Q6H PRN PRN Reason: Itching Last Admin: 08/31/23 08:44 Dose: 25 mg Documented By: MIKE Doxycycline Monohydrate (Doxycycline Monohydrate 100 Mg Capsule) 100 mg PO Q12H [facility] Last Admin: 08/31/23 10:52 Dose: Not Given Documented By: MIKE Non-Admin Reason: Patient Refused Glucose (Glucose Gel 15 Gm Gel..Gram.) 15 gm PO Q15M PRN; Protocol PRN Reason: per Hypoglycemia Standing Ord. Heparin Sodium (Porcine) (Heparin Sodium,Porcine 5,000 Unit/Ml Vial) 5,000 unit SUBCUT Q12H [facility] Last Admin: 08/31/23 11:05 Dose: Not Given Documented By: MIKE Non-Admin Reason: Patient Refused Hydromorphone HCl (Hydromorphone Hcl 0.5 Mg/0.5 Ml Syringe) 0.5 mg IVPUSH Q4H PRN; Protocol PRN Reason: Pain, Severe (Pain Scale 7-10) Last Admin: 08/31/23 13:00 Dose: 0.5 mg Documented By: MIKE Piperacillin Sod/Tazobactam (Sod 4.5 gm/ Sodium Chloride) 100 mls @ 200 mls/hr IV Q12H [facility] Last Infusion: 08/31/23 11:33 Dose: Infused Documented By: MIKE Dextrose (D10) 250 mls @ 750 mls/hr IV Q15M PRN; Protocol PRN Reason: per Hypoglycemia Standing Ord. Insulin Human Lispro (Insulin Lispro 100 Unit/Ml 3 Ml Vial) 0 unit SUBCUT QIDACHS [facility]; Protocol Last Admin: 08/31/23 11:22 Dose: Not Given Documented By: MIKE Non-Admin Reason: No Insulin Coverage Isosorbide Mononitrate (Isosorbide Mononitrate 30 Mg Tab.Er.24h) 30 mg PO DAILY [facility]; Protocol Last Admin: 08/31/23 10:38 Dose: Not Given Documented By: MIKE Non-Admin Reason: Patient Refused Levetiracetam (Levetiracetam 1,000 Mg Tablet) 1,000 mg PO DAILY [facility] Last Admin: 08/31/23 10:39 Dose: Not Given Documented By: MIKE Non-Admin Reason: Patient Refused Magnesium Hydroxide (Milk Of Magnesia 30 Ml Oral.Susp) 30 ml PO DAILY PRN PRN Reason: Constipation Melatonin (Melatonin 3 Mg Tablet) 6 mg PO BEDTIME PRN PRN Reason: Insomnia Ondansetron HCl (Ondansetron Hcl 4 Mg/2 Ml Vial) 4 mg IVPUSH Q4H PRN PRN Reason: Nausea and Vomiting Last Admin: 08/29/23 01:09 Dose: 4 mg Documented By: CHRISTAL Sodium Chloride (0.9 % Sodium Chloride Flush 3 Ml Syringe) [facility] Last Admin: 08/31/23 07:46 Dose: Not Given Documented By: MIKE Non-Admin Reason: Off unit: Dialysis Torsemide (Torsemide 20 Mg Tablet) 40 mg PO BID [facility]; Protocol Last Admin: 08/31/23 10:39 Dose: Not Given Documented By: MIKE Non-Admin Reason: Patient Refused Labs 08/30/23 10:11 08/30/23 10:11 Labs: Laboratory Results - last 24 hr 08/30/23 08/31/23 08/31/23 16:10 10:37 11:20 POC Glucose 118 H 56 L* 88 Procedures Date of Service Date of Service: 08/31/23 Progress Note: A&P Assessment and plan (1) Cellulitis: Status: Acute (2) Foot ulcer: Status: Acute Plan Patient with b/l ulcers with very thick callus burden. Sharp excisional debridement was performed with scalpel and chu scissors and large amount of callus tissue removed however surrounding callus remains. Will need continued debridement to reduce callus burden. Discussed need for follow up at wound care center. B/l feet redressed with silver alginate, fluffs and kerlix wrap. Time Spent With Patient Time: Total time managing care of this patient today ____ minutes. Quality Stroke Does the patient have a stroke diagnosis?: No VTE Prior VTE?: No VTE Risk Level:: Medical - moderate - high VTE Device Contraindication: Treatment Not Indicated VTE Drug Contraindication: N/A - Med Ordered
[2023-08-31 15:16] VITALS: BP 183/91; PULSE 84; RESP 18; TEMP 36; O2SAT 100
[2023-08-31] MEDS: 0.9 % Sodium Chloride Flush 3 ML SYRINGE IVFLUSH ×2 (15:54→21:55)
[2023-08-31 16:23] LABS: Glucose, Whole Blood 86 mg/dL (60-115)
[2023-08-31 19:32] VITALS: BP 186/97; PULSE 79; RESP 20; TEMP 36.2; O2SAT 100
[2023-08-31 22:04] LABS: Glucose, Whole Blood 95 mg/dL (60-115)
[2023-08-31] MEDS: Doxycycline Monohydrate 100 MG CAPSULE PO (22:07)
[2023-08-31 23:08] VITALS: RESP 18
[2023-09-01] VITALS (7 sets, daily range): BP systolic 170–187; BP diastolic 78–102; PULSE 79–84; RESP 16–20; TEMP 36.1–36.7; O2SAT 96–100
[2023-09-01] MEDS: HYDROmorphone HCl 0.5 MG/0.5 ML SYRINGE IVPUSH ×5 (02:49→22:14)
--- NOTE | 2023-09-01 04:43 | PC.NURSE ---
Addendum entered by María Puckett RN 09/01/23 05:40: Patient transported to [facility] for dialysis in stable condition at 05:32. Original Note: Assumed care of patient at 19:00. Patient is A&Ox4. Patient here for diabetic foot infections s/p debridement during the day. DSDs remain c/d/i without redness or drainage. Patient hypertensive on evening vitals; refused manual or reassessment of BP. Patient refused most medications, including medications for BP. Denies chest pain and sob. Breathing is even and unlabored without distress on baseline 3L nc. Scheduled medications use and importance discussed with patient; only then was patient agreeable to po antibiotics, though continued to refuse all other po meds. Agreeable to IV abx. Pt medicated with prn dilaudid and prn benadryl per request with +effect. Initially refused though later agreeable to HS poc which was 95. Bed alarm on and safety measures in place. Call moore within reach, pt rings appropriately to make needs known.
[2023-09-01] MEDS: diphenhydrAMINE HCL 50 MG/ML VIAL 25 MG IVPUSH ×3 (05:31→20:18)
[2023-09-01 07:58] LABS: Hematocrit 29.2 % (37.0-47.0); Hemoglobin 9.3 g/dl (12.0-16.0); Mean Corpuscular HGB Conc 31.8 g/dl (31.0-35.0); Mean Corpuscular Hemoglobin 30.7 pg (27.0-33.0); Mean Corpuscular Volume 96.4 fL (80.0-98.0); Platelet Count 180 X10*3/uL (160-400); Red Blood Count 3.03 X10*6/uL (4.20-5.50); Red Cell Distribution Width 15.2 % (11.0-16.0)
[2023-09-01] MEDS: 0.9 % Sodium Chloride Flush 3 ML SYRINGE IVFLUSH ×3 (07:59→20:19)
[2023-09-01 08:23] LABS: Anion Gap 17 (12-20); Blood Urea Nitrogen 15 mg/dL (9-16); Calcium 8.7 mg/dL (8.4-10.2); Carbon Dioxide 26 mmol/L (22-29); Chloride 98 mmol/L (96-108); Creatinine Clr Calc Pharmacy 29.1; Estimated Glomerular Filt Rate 18; Glucose Fasting 77 mg/dL (60-99); Sodium 138 mmol/L (135-145)
[2023-09-01 08:27] LABS: Potassium 2.9 mmol/L (3.3-5.1)
--- NOTE | 2023-09-01 09:30 | P.PNIM_ITS ---
Subjective Subjective Date of Service: 09/01/23 Interval History: foot pain Physical Exam 2 Vital Signs: Vital Signs: Last Vital Signs Temp 97.0 F 09/01/23 02:48 Pulse 80 09/01/23 02:48 Resp 16 09/01/23 03:19 BP 170/89 H 09/01/23 02:48 Pulse Ox 100 09/01/23 02:48 O2 Del Method Nasal Cannula 09/01/23 02:48 O2 Flow Rate 3 09/01/23 02:48 Oxygen Flow Rate 3 08/27/23 19:13 BMI result Body Mass Index 30.4 Const: General: comfortable, no acute distress and alert O rientation/consciousness: patient oriented x3 Neuro: General: patient oriented x3 and moves all extremities Extrem: Other: left foot- plantar ulcer with very thick callus, ulcer bed without granulation right foot metatarsal amp site- medial aspect with 2cm ulcer and thick surrounding callus, ulcer base with granulation tissue, clean appearing Objective Data Active Medications Acetaminophen (Acetaminophen 325 Mg Tablet) 650 mg PO Q6H PRN PRN Reason: Pain, Mild (Pain Scale 1-3), fever or headache Calcium Carbonate (Calcium Carbonate 750 Mg Tab.Chew) 750 mg PO Q4H PRN PRN Reason: Heartburn Carvedilol (Carvedilol 12.5 Mg Tablet) 12.5 mg PO BID [facility]; Protocol Last Admin: 08/31/23 21:54 Dose: Not Given Documented By: MAI Non-Admin Reason: Patient Refused Diphenhydramine HCl (Diphenhydramine Hcl 50 Mg/Ml Vial) 25 mg IVPUSH Q6H PRN PRN Reason: Itching Last Admin: 09/01/23 05:31 Dose: 25 mg Documented By: MAI Doxycycline Monohydrate (Doxycycline Monohydrate 100 Mg Capsule) 100 mg PO Q12H [facility] Last Admin: 08/31/23 22:07 Dose: 100 mg Documented By: MAI Glucose (Glucose Gel 15 Gm Gel..Gram.) 15 gm PO Q15M PRN; Protocol PRN Reason: per Hypoglycemia Standing Ord. Heparin Sodium (Porcine) (Heparin Sodium,Porcine 5,000 Unit/Ml Vial) 5,000 unit SUBCUT Q12H [facility] Last Admin: 08/31/23 21:54 Dose: Not Given Documented By: MAI Non-Admin Reason: Patient Refused Hydromorphone HCl (Hydromorphone Hcl 0.5 Mg/0.5 Ml Syringe) 0.5 mg IVPUSH Q4H PRN; Protocol PRN Reason: Pain, Severe (Pain Scale 7-10) Last Admin: 09/01/23 07:57 Dose: 0.5 mg Documented By: PER Piperacillin Sod/Tazobactam (Sod 4.5 gm/ Sodium Chloride) 100 mls @ 200 mls/hr IV Q12H [facility] Last Infusion: 08/31/23 22:37 Dose: Infused Documented By: MAI Dextrose (D10) 250 mls @ 750 mls/hr IV Q15M PRN; Protocol PRN Reason: per Hypoglycemia Standing Ord. Insulin Human Lispro (Insulin Lispro 100 Unit/Ml 3 Ml Vial) 0 unit SUBCUT QIDACHS [facility]; Protocol Last Admin: 09/01/23 08:57 Dose: Not Given Documented By: JENNY Non-Admin Reason: Off unit: Dialysis Isosorbide Mononitrate (Isosorbide Mononitrate 30 Mg Tab.Er.24h) 30 mg PO DAILY [facility]; Protocol Last Admin: 08/31/23 10:38 Dose: Not Given Documented By: MIKE Non-Admin Reason: Patient Refused Levetiracetam (Levetiracetam 1,000 Mg Tablet) 1,000 mg PO DAILY [facility] Last Admin: 08/31/23 10:39 Dose: Not Given Documented By: MIKE Non-Admin Reason: Patient Refused Magnesium Hydroxide (Milk Of Magnesia 30 Ml Oral.Susp) 30 ml PO DAILY PRN PRN Reason: Constipation Melatonin (Melatonin 3 Mg Tablet) 6 mg PO BEDTIME PRN PRN Reason: Insomnia Ondansetron HCl (Ondansetron Hcl 4 Mg/2 Ml Vial) 4 mg IVPUSH Q4H PRN PRN Reason: Nausea and Vomiting Last Admin: 08/29/23 01:09 Dose: 4 mg Documented By: CHRISTAL Sodium Chloride (0.9 % Sodium Chloride Flush 3 Ml Syringe) 3 ml IVFLUSH QSHIFT [facility] Last Admin: 09/01/23 07:59 Dose: 3 ml Documented By: PER Torsemide (Torsemide 20 Mg Tablet) 40 mg PO BID [facility]; Protocol Last Admin: 08/31/23 21:54 Dose: Not Given Documented By: MAI Non-Admin Reason: Patient Refused Labs 09/01/23 06:48 09/01/23 06:48 Labs: Laboratory Results - last 24 hr 08/31/23 08/31/23 08/31/23 10:37 11:20 16:19 MCV MCH MCHC RDW Plt Count MPV Absolute Nucleated RBC Nucleated RBC % (auto) Anion Gap Estim Creat Clear Calc Estimated GFR POC Glucose 56 L* 88 86 Fasting Glucose Calcium 08/31/23 09/01/23 22:01 06:48 MCV 96.4 MCH 30.7 MCHC 31.8 RDW 15.2 Plt Count 180 MPV 12.0 Absolute Nucleated RBC 0.000 Nucleated RBC % (auto) 0.0 Anion Gap 17 Estim Creat Clear Calc 29.1 Estimated GFR 18 POC Glucose 95 Fasting Glucose 77 Calcium 8.7 Assessment and Plan (1) Diabetic foot infection: Status: Acute Plan 32F PMH ESRD on hemodialysis, 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 Diabetic foot infection with nonhealing ulcers and purulent cellulitis Noncompliant with p.o. antibiotics outpatient. continue zosyn and doxycycline MRI of left foot neg for osteomyelitis and abscess General surgery consult> silver alginate to right foot ulcer, s/p bedside debridement to foot ulcers vascular surgery appreciated - no vascular intervention at this time, may need bka in future ESRD on hemodialysis nephrology (renal and transplant of [place]) for dialysis scheduling T,TH,SA [id number] diabetes mellitus ss, ada diet Mood disorder On sertraline Congestive heart failure with reduced ejection fraction with chronic hypoxia no exacerbation continue torsemide, beta-mohamud, HD On baseline 3 L supplemental oxygen CAD/cardiomyopathy On aspirin, Imdur and beta-mohamud Chronic pain with opioid seeking behavior On p.o. opioids. Poorly controlled hypertension due to medication noncompliance Resume home antihypertensives Chronic anemia of kidney disease DVT prophylaxis: Heparin Full code reason for continued hospitalization:severe pain Quality Stroke Does the patient have a stroke diagnosis?: No VTE Prior VTE?: No VTE Risk Level:: Medical - moderate - high VTE Device Contraindication: Treatment Not Indicated VTE Drug Contraindication: N/A - Med Ordered
[2023-09-01 09:52] LABS: Glucose, Whole Blood 63 mg/dL (60-115)
--- NOTE | 2023-09-01 09:52 | PC.NURSE ---
0935- patient returned to floor from dialysis. BP upon arrival of 185/88 with HR of 84. Patient refusing all PO medication. Dr. Cavazos aware. Patient allowed finger stick blood glucose to be obtained with result of 63. Patient offered snack which she declined at this time. Resting in bed. No signs or symptoms of distress. Bed alarm on and call moore within reach.
[2023-09-01] MEDS: Doxycycline Monohydrate 100 MG CAPSULE PO ×2 (10:18→22:15)
[2023-09-01] MEDS: Piperacillin Sodium/Tazobactam 4.5 GM in 0.9 % Sodium Chloride 100 ML IV ×2 (10:18→22:15)
--- NOTE | 2023-09-01 10:28 | PC.NURSE ---
Patient accepted scheduled morning IV and PO antibiotics. See MAR for details.
[2023-09-01 11:33] LABS: Glucose, Whole Blood 132 mg/dL (60-115)
[2023-09-01 16:33] LABS: Glucose, Whole Blood 94 mg/dL (60-115)
--- NOTE | 2023-09-01 19:53 | PC.NURSE ---
Assumed care of patient at 19:00 this evening. Pt hypertensive 187/102 HR 80. Pt refusing manual or cuff BP reassessment; continues to refuse most scheduled po meds including torsemide and coreg, can be resistive to care and intermittently removes herhome 3L nc. Spo2 100% on RA this evening. Pt denies symptoms of HTN; denies h/a, chest pain, sob, n/v. Potassium also noted to be critical 2.9, resulted during the day today not during service writer's care. Covering Dr. Sewell notified of HTN, pt refusing most po meds and resistive to care. IV Kcl repletion initially ordered, though when this was discussed with the patient she refused and requested po Kcl instead. Po meds again discussed/confirmed with patient and she states she is currently agreeable to scheduled po antibiotic Kcl repletion po only. notified and Kcl requested to be changed from IV to po. Awaiting pharmacy verification at this time.
[2023-09-01] MEDS: Potassium Chloride Packet 20 MEQ PACKET 40 MEQ PO (20:18)
[2023-09-01 20:21] LABS: Glucose, Whole Blood 146 mg/dL (60-115)
[2023-09-02] VITALS (7 sets, daily range): BP systolic 159–198; BP diastolic 79–108; PULSE 83–89; RESP 16–20; TEMP 36.2–36.4; O2SAT 95–96
[2023-09-02] MEDS: HYDROmorphone HCl 0.5 MG/0.5 ML SYRINGE IVPUSH ×5 (02:02→21:17)
[2023-09-02] MEDS: diphenhydrAMINE HCL 50 MG/ML VIAL 25 MG IVPUSH ×4 (02:32→21:14)
[2023-09-02 07:27] LABS: Glucose, Whole Blood 121 mg/dL (60-115)
[2023-09-02] MEDS: 0.9 % Sodium Chloride Flush 3 ML SYRINGE IVFLUSH (08:42)
[2023-09-02 09:23] LABS: Anion Gap 19 (12-20); Blood Urea Nitrogen 25 mg/dL (9-16); Calcium 9.2 mg/dL (8.4-10.2); Carbon Dioxide 26 mmol/L (22-29); Chloride 96 mmol/L (96-108); Creatinine Clr Calc Pharmacy 18.1; Estimated Glomerular Filt Rate 10; Glucose Random 92 mg/dL (60-115); Magnesium 2.3 mg/dL (1.6-2.6); Sodium 137 mmol/L (135-145)
--- NOTE | 2023-09-02 09:35 | PM.DS ---
DS: Providers Provider Date of Service: 09/03/23 Date of admission: 08/27/23 22:04 Primary care physician: Abdon Beard MD Consults: 08/27/23 22:04 Consult to General Surgery Routine Consulting Provider: [facility] [place] General Surgeons Reason for consultation: diabetic foot infection , non healing ulcers 08/28/23 12:01 Consult to Wound Care Routine Reason for consultation: DM foot ulcer Has provider been notified: Yes 08/28/23 13:26 Consult to Vascular Surgery Routine Consulting Provider: [facility] [place] Vascular Services Reason for consultation: bilateral plantar foot ulcers 08/28/23 13:27 Consult to Nephrology Routine Consulting Provider: [facility] 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 Patient was seen in the ER on 08/21 and was prescribed p.o. antibiotics for concerns of left foot infection. Patient did not fill the antibiotics. States her pain is worsening and is associated with warmth and purulent drainage. She has nonhealing diabetic foot wound. Denies fever, chills, chest discomfort, palpitations, shortness of breath, abdominal pain, changes in urinary or bowel habits. She only wants pain medications for her foot pain. In the emergency department, patient was given empiric IV antibiotics and po opioids. hospital course: Patient was admitted for diabetic foot ulcer and purulent cellulitis. Was treated with IV Zosyn and doxycycline. MRI was negative for osteomyelitis or abscess. She was seen by General surgery who performed bedside debridement. She was seen by vascular surgery who felt that patient would not benefit from vascular intervention at this time but may need BKA in the future. For end-stage renal disease was continued on hemodialysis. For diabetes was continued on insulin sliding scale. For mood disorder continue sertraline. For chronic systolic CHF complicated by chronic hypoxic respiratory failure she remained euvolemic. For coronary disease she was continued on aspirin, Imdur, beta-mohamud. For chronic pain she was continued on her opiates. For poorly controlled hypertension patient refused antihypertensives. For hypokalemia received replacement. Patient is medically stable will be discharged home. Time Attestation Discharge Coordination Time (in mins): 37 Quality: Safe Use of Opioids Does Pt have an Active Cancer Diagnosis on the Problem List?: No Quality: Stroke Does the patient have a stroke diagnosis?: No Physical Exam Vital Signs: Vital Signs: Last Vital Signs Temp 97.1 F 09/02/23 07:06 Pulse 83 09/02/23 07:06 Resp 16 09/02/23 07:06 BP 159/86 H 09/02/23 07:06 Pulse Ox 96 09/02/23 07:06 O2 Del Method Room Air 09/02/23 07:06 O2 Flow Rate 2 09/01/23 15:24 Oxygen Flow Rate 3 08/27/23 19:13 BMI result Body Mass Index 30.4 Const: General: comfortable, no acute distress and alert Orientation/consciousness: patient oriented x3 Neuro: General: patient oriented x3 and moves all extremities Extrem: Other: left foot- plantar ulcer with very thick callus, ulcer bed without granulation right foot metatarsal amp site- medial aspect with 2cm ulcer and thick surrounding callus, ulcer base with granulation tissue, clean appearing DS: Data Data Completed and Pending Completed studies during hospitalization [Text1]: Procedures Detachment at Right Foot, Partial 1st Ray, Open Approach (03/01/20) Detachment at Right Foot, Partial 2nd Ray, Open Approach (03/01/20) Detachment at Right Foot, Partial 3rd Ray, Open Approach (03/01/20) Detachment at Right Foot, Partial 4th Ray, Open Approach (03/01/20) Detachment at Right Foot, Partial 5th Ray, Open Approach (03/01/20) Drainage of Right Pleural Cavity, Percutaneous Approach (01/14/21) Excision of Left Foot Skin, External Approach (03/10/23) Excision of Stomach, Pylorus, Via Natural or Artificial Opening Endoscopic, Diagnostic (08/27/22) Fluoroscopy of Superior Vena Cava, Guidance (08/14/22) Insertion of Infusion Device into Right Atrium, Percutaneous Approach (08/14/22) Insertion of Infusion Device into Superior Vena Cava, Percutaneous Approach (01/14/21) Insertion of Tunneled Vascular Access Device into Chest Subcutaneous Tissue and Fascia, Percutaneous Approach (08/14/22) Performance of Urinary Filtration, Intermittent, Less than 6 Hours Per Day (06/24/23) Removal of Infusion Device from Great Vessel, External Approach (01/14/21) Transfusion of Nonautologous Red Blood Cells into Peripheral Vein, Percutaneous Approach (04/22/22) Labs on day of discharge: Laboratory Results - last 24 hr 09/01/23 09/01/23 09/01/23 09:47 11:28 16:26 Hold Purple Top Sodium Potassium Chloride Carbon Dioxide Anion Gap BUN Creatinine Estim Creat Clear Calc Estimated GFR POC Glucose 63 132 H 94 Random Glucose Calcium Magnesium 09/01/23 09/02/23 09/02/23 20:19 07:10 08:21 Hold Purple Top SEE NOTE Sodium 137 Potassium 4.0 D Chloride 96 Carbon Dioxide 26 Anion Gap 19 BUN 25 H Creatinine 4.76 H* Estim Creat Clear Calc 18.1 Estimated GFR 10 POC Glucose 146 H 121 H Random Glucose 92 Calcium 9.2 Magnesium 2.3 Discharge Plan Discharge Anticipated Discharge Date/Time: 09/02/23 09:33 Patient Disposition: Home, Self-Care Discharge Diagnosis: dfu Referrals: Abdon Beard MD [Primary Care Provider] - 1 Week Discharge Medications: New doxycycline monohydrate 100 mg Capsule 100 mg PO Q12H Qty: 14 0RF Continued (DME) off loading boot Kit See Rx Instructions .Route Qty: 1 0RF Rx Instructions: As directed carvedilol 12.5 mg tablet 12.5 mg PO BID torsemide 20 mg tablet 40 mg PO BID isosorbide mononitrate 30 mg tablet extended release 24 hr 30 mg PO DAILY docusate sodium 100 mg capsule 100 mg PO DAILY PRN (Reason: constipation) oxycodone 5 mg tablet 5 mg PO TID PRN (Reason: Pain) levetiracetam 1,000 mg tablet 1,000 mg PO DAILY mirtazapine 7.5 mg Tablet 7.5 mg PO BEDTIME Qty: 90 0RF sertraline 25 mg Tablet 25 mg PO DAILY Qty: 30 0RF cholecalciferol (vitamin D3) 50 mcg (2,000 unit) capsule 50 mcg PO DAILY Calcium Antacid 300 mg (750 mg) tablet,chewable 1 tab PO TIDWM omeprazole 20 mg capsule,delayed release(DR/EC) 20 mg PO DAILY Discharge Orders: Discharge Order (Routine); Ordered 09/02/23 Ordered By: Jacinto Cavazos Diet: Diabetic diet Activity on Discharge: As tolerated Stand Alone Forms: Patient Portal Discharge page Print Language: Macedonian Care Plan Goals: recovery Health Concerns: uncontrolled htn, dm, dfu Plan of Treatment: 7 more days doxy, continue with wound care, attend HD sessions, take meds as prescribed Assessment: see above
[2023-09-02] MEDS: Piperacillin Sodium/Tazobactam 4.5 GM in 0.9 % Sodium Chloride 100 ML IV ×2 (10:52→21:21)
--- NOTE | 2023-09-02 11:01 | HO.PM.IMPN ---
Subjective Subjective Date of Service: 09/02/23 Interval History: foot pain Physical Exam Vital Signs: Vital Signs: Last Vital Signs Temp 97.1 F 09/02/23 07:06 Pulse 83 09/02/23 07:06 Resp 16 09/02/23 07:06 BP 159/86 H 09/02/23 07:06 Pulse Ox 96 09/02/23 07:06 O2 Del Method Room Air 09/02/23 07:06 O2 Flow Rate 2 09/01/23 15:24 Oxygen Flow Rate 3 08/27/23 19:13 BMI result Body Mass Index 30.4 Const: General: comfortable, no acute distress and alert Orientation/consciousness: patient oriented x3 Neuro: General: patient oriented x3 and moves all extremities Extrem: Other: left foot- plantar ulcer with very thick callus, ulcer bed without granulation right foot metatarsal amp site- medial aspect with 2cm ulcer and thick surrounding callus, ulcer base with granulation tissue, clean appearing Objective Data Active Medications Acetaminophen (Acetaminophen 325 Mg Tablet) 650 mg PO Q6H PRN PRN Reason: Pain, Mild (Pain Scale 1-3), fever or headache Calcium Carbonate (Calcium Carbonate 750 Mg Tab.Chew) 750 mg PO Q4H PRN PRN Reason: Heartburn Carvedilol (Carvedilol 12.5 Mg Tablet) 12.5 mg PO BID [facility]; Protocol Last Admin: 09/02/23 08:24 Dose: Not Given Documented By: JENNY Non-Admin Reason: Patient Refused Diphenhydramine HCl (Diphenhydramine Hcl 50 Mg/Ml Vial) 25 mg IVPUSH Q6H PRN PRN Reason: Itching Last Admin: 09/02/23 08:42 Dose: 25 mg Documented By: JENNY Doxycycline Monohydrate (Doxycycline Monohydrate 100 Mg Capsule) 100 mg PO Q12H [facility] Last Admin: 09/02/23 11:01 Dose: Not Given Documented By: JENNY Non-Admin Reason: Patient Refused Glucose (Glucose Gel 15 Gm Gel..Gram.) 15 gm PO Q15M PRN; Protocol PRN Reason: per Hypoglycemia Standing Ord. Heparin Sodium (Porcine) (Heparin Sodium,Porcine 5,000 Unit/Ml Vial) 5,000 unit SUBCUT Q12H [facility] Last Admin: 09/02/23 09:41 Dose: Not Given Documented By: JENNY Non-Admin Reason: Patient Refused Hydromorphone HCl (Hydromorphone Hcl 0.5 Mg/0.5 Ml Syringe) 0.5 mg IVPUSH Q4H PRN; Protocol PRN Reason: Pain, Severe (Pain Scale 7-10) Last Admin: 09/02/23 10:51 Dose: 0.5 mg Documented By: JENNY Piperacillin Sod/Tazobactam (Sod 4.5 gm/ Sodium Chloride) 100 mls @ 200 mls/hr IV Q12H [facility] Last Admin: 09/02/23 10:52 Dose: 200 mls/hr Documented By: JENNY Dextrose (D10) 250 mls @ 750 mls/hr IV Q15M PRN; Protocol PRN Reason: per Hypoglycemia Standing Ord. Insulin Human Lispro (Insulin Lispro 100 Unit/Ml 3 Ml Vial) 0 unit SUBCUT QIDACHS [facility]; Protocol Last Admin: 09/02/23 07:34 Dose: Not Given Documented By: JENNY Non-Admin Reason: No Insulin Coverage Isosorbide Mononitrate (Isosorbide Mononitrate 30 Mg Tab.Er.24h) 30 mg PO DAILY [facility]; Protocol Last Admin: 09/02/23 08:25 Dose: Not Given Documented By: JENNY Non-Admin Reason: Patient Refused Levetiracetam (Levetiracetam 1,000 Mg Tablet) 1,000 mg PO DAILY [facility] Last Admin: 09/02/23 08:25 Dose: Not Given Documented By: JENNY Non-Admin Reason: Patient Refused Magnesium Hydroxide (Milk Of Magnesia 30 Ml Oral.Susp) 30 ml PO DAILY PRN PRN Reason: Constipation Melatonin (Melatonin 3 Mg Tablet) 6 mg PO BEDTIME PRN PRN Reason: Insomnia Ondansetron HCl (Ondansetron Hcl 4 Mg/2 Ml Vial) 4 mg IVPUSH Q4H PRN PRN Reason: Nausea and Vomiting Last Admin: 08/29/23 01:09 Dose: 4 mg Documented By: CHRISTAL Sodium Chloride (0.9 % Sodium Chloride Flush 3 Ml Syringe) [facility] Last Admin: 09/02/23 08:42 Dose: 3 ml Documented By: JENNY Torsemide (Torsemide 20 Mg Tablet) 40 mg PO BID [facility]; Protocol Last Admin: 09/02/23 08:25 Dose: Not Given Documented By: JENNY Non-Admin Reason: Patient Refused Comments: Low potassium on 08/31. New draw completed this morning (09/01)- awaiting results. Patient declining regularly scheduled PO medications. Labs 09/01/23 06:48 09/02/23 08:21 Labs: Laboratory Results - last 24 hr 09/01/23 09/01/23 09/01/23 11:28 16:26 20:19 Hold Purple Top Anion Gap Estim Creat Clear Calc Estimated GFR POC Glucose 132 H 94 146 H Random Glucose Calcium Magnesium 09/02/23 09/02/23 07:10 08:21 Hold Purple Top SEE NOTE Anion Gap 19 Estim Creat Clear Calc 18.1 Estimated GFR 10 POC Glucose 121 H Random Glucose 92 Calcium 9.2 Magnesium 2.3 Microbiology Microbiology Results: Microbiology 08/27/23 20:14 Blood Culture - Final Blood - Venous No growth after 5 days. 08/27/23 20:03 Blood Culture - Final Blood - Venous No growth after 5 days. 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 Diabetic foot infection with nonhealing ulcers and purulent cellulitis Noncompliant with p.o. antibiotics outpatient. continue zosyn and doxycycline MRI of left foot neg for osteomyelitis and abscess General surgery consult> silver alginate to right foot ulcer, s/p bedside debridement to foot ulcers vascular surgery appreciated - no vascular intervention at this time, may need bka in future hyokalemia replaced ESRD on hemodialysis nephrology (renal and transplant of [place]) for dialysis scheduling T,TH,SA [id number] diabetes mellitus ss, ada diet Mood disorder On sertraline Congestive heart failure with reduced ejection fraction with chronic hypoxia no exacerbation continue torsemide, beta-mohamud, HD On baseline 3 L supplemental oxygen CAD/cardiomyopathy On aspirin, Imdur and beta-mohamud Chronic pain with opioid seeking behavior On p.o. opioids. Poorly controlled hypertension due to medication noncompliance Resume home antihypertensives Chronic anemia of kidney disease DVT prophylaxis: Heparin Full code reason for continued hospitalization:plan for appeal Quality Stroke Does the patient have a stroke diagnosis?: No VTE Prior VTE?: No VTE Risk Level:: Medical - moderate - high VTE Device Contraindication: Treatment Not Indicated VTE Drug Contraindication: N/A - Med Ordered
--- NOTE | 2023-09-02 11:11 | MHC.CM.PN ---
Addendum entered by Yarely Moe 09/02/23 13:34: PT REQUESTED TO APPEAL HER DC THIS MORNING, CM ASSISTED DUE TO PTS VISUAL IMPAIRMENT Original Note: CM MET WITH PT THIS MORNING TO DISCUS DC PLANNING SHE CONFIRMS THE DC PLAN IS TO RETURN HOME AND RESUME DISPATCHER RELAY SERVICES AND OUTPATIENT HD HOWEVER STATES SHE DOES NOT FEEL READY TO DC TODAY DUE TO PAIN MESSAGE RELAYED TO HOSPITALIST AND MEDICARE RIGHTS REVIEWED
[2023-09-02 11:16] LABS: Glucose, Whole Blood 120 mg/dL (60-115)
--- NOTE | 2023-09-02 11:26 | P.PNGS_ITS ---
Subjective Subjective Date of Service: 09/02/23 Interval history: pt complaining of diarrhea due to antibitoics wounds look ok says she doesnt like to leve her house - not even for dialysis - thats why she doesnt come to [facility] appointments. Says however she will come to the feet treated. Physical Exam 2 Vital Signs: Vital Signs: Last Vital Signs Temp 97.1 F 09/02/23 07:06 Pulse 83 09/02/23 07:06 Resp 16 09/02/23 07:06 BP 159/86 H 09/02/23 07:06 Pulse Ox 96 09/02/23 07:06 O2 Del Method Room Air 09/02/23 07:06 O2 Flow Rate 2 09/01/23 15:24 Oxygen Flow Rate 3 08/27/23 19:13 BMI result Body Mass Index 30.4 Skin: Other: left plantar wound with small superficial opening stable - callus surrounding the right foot wound is also small and superficial and clean - less callus surrounding Objective Data Active Medications Acetaminophen (Acetaminophen 325 Mg Tablet) 650 mg PO Q6H PRN PRN Reason: Pain, Mild (Pain Scale 1-3), fever or headache Calcium Carbonate (Calcium Carbonate 750 Mg Tab.Chew) 750 mg PO Q4H PRN PRN Reason: Heartburn Carvedilol (Carvedilol 12.5 Mg Tablet) 12.5 mg PO BID [facility]; Protocol Last Admin: 09/02/23 08:24 Dose: Not Given Documented By: JENNY Non-Admin Reason: Patient Refused Diphenhydramine HCl (Diphenhydramine Hcl 50 Mg/Ml Vial) 25 mg IVPUSH Q6H PRN PRN Reason: Itching Last Admin: 09/02/23 08:42 Dose: 25 mg Documented By: JENNY Doxycycline Monohydrate (Doxycycline Monohydrate 100 Mg Capsule) 100 mg PO Q12H [facility] Last Admin: 09/02/23 11:01 Dose: Not Given Documented By: JENNY Non-Admin Reason: Patient Refused Glucose (Glucose Gel 15 Gm Gel..Gram.) 15 gm PO Q15M PRN; Protocol PRN Reason: per Hypoglycemia Standing Ord. Heparin Sodium (Porcine) (Heparin Sodium,Porcine 5,000 Unit/Ml Vial) 5,000 unit SUBCUT Q12H [facility] Last Admin: 09/02/23 09:41 Dose: Not Given Documented By: JENNY Non-Admin Reason: Patient Refused Hydromorphone HCl (Hydromorphone Hcl 0.5 Mg/0.5 Ml Syringe) 0.5 mg IVPUSH Q4H PRN; Protocol PRN Reason: Pain, Severe (Pain Scale 7-10) Last Admin: 09/02/23 10:51 Dose: 0.5 mg Documented By: JENNY Piperacillin Sod/Tazobactam (Sod 4.5 gm/ Sodium Chloride) 100 mls @ 200 mls/hr IV Q12H [facility] Last Admin: 09/02/23 10:52 Dose: 200 mls/hr Documented By: JENNY Dextrose (D10) 250 mls @ 750 mls/hr IV Q15M PRN; Protocol PRN Reason: per Hypoglycemia Standing Ord. Insulin Human Lispro (Insulin Lispro 100 Unit/Ml 3 Ml Vial) 0 unit SUBCUT QIDACHS [facility]; Protocol Last Admin: 09/02/23 11:18 Dose: Not Given Documented By: JENNY Non-Admin Reason: No Insulin Coverage Isosorbide Mononitrate (Isosorbide Mononitrate 30 Mg Tab.Er.24h) 30 mg PO DAILY [facility]; Protocol Last Admin: 09/02/23 08:25 Dose: Not Given Documented By: JENNY Non-Admin Reason: Patient Refused Levetiracetam (Levetiracetam 1,000 Mg Tablet) 1,000 mg PO DAILY [facility] Last Admin: 09/02/23 08:25 Dose: Not Given Documented By: JENNY Non-Admin Reason: Patient Refused Magnesium Hydroxide (Milk Of Magnesia 30 Ml Oral.Susp) 30 ml PO DAILY PRN PRN Reason: Constipation Melatonin (Melatonin 3 Mg Tablet) 6 mg PO BEDTIME PRN PRN Reason: Insomnia Ondansetron HCl (Ondansetron Hcl 4 Mg/2 Ml Vial) 4 mg IVPUSH Q4H PRN PRN Reason: Nausea and Vomiting Last Admin: 08/29/23 01:09 Dose: 4 mg Documented By: CHRISTAL Sodium Chloride (0.9 % Sodium Chloride Flush 3 Ml Syringe) [facility] Last Admin: 09/02/23 08:42 Dose: 3 ml Documented By: JENNY Torsemide (Torsemide 20 Mg Tablet) 40 mg PO BID [facility]; Protocol Last Admin: 09/02/23 08:25 Dose: Not Given Documented By: JENNY Non-Admin Reason: Patient Refused Comments: Low potassium on 08/31. New draw completed this morning (09/01)- awaiting results. Patient declining regularly scheduled PO medications. Labs 09/01/23 06:48 09/02/23 08:21 Labs: Laboratory Results - last 24 hr 09/01/23 09/01/23 09/01/23 11:28 16:26 20:19 Hold Purple Top Anion Gap Estim Creat Clear Calc Estimated GFR POC Glucose 132 H 94 146 H Random Glucose Calcium Magnesium 09/02/23 09/02/23 09/02/23 07:10 08:21 11:10 Hold Purple Top SEE NOTE Anion Gap 19 Estim Creat Clear Calc 18.1 Estimated GFR 10 POC Glucose 121 H 120 H Random Glucose 92 Calcium 9.2 Magnesium 2.3 Microbiology Microbiology Results: Microbiology 08/27/23 20:14 Blood Culture - Final Blood - Venous No growth after 5 days. 08/27/23 20:03 Blood Culture - Final Blood - Venous No growth after 5 days. Procedures Date of Service Date of Service: 09/02/23 Progress Note: A&P Assessment and plan (1) Diabetic foot infection: Status: Acute Plan foot wounds look good and cellulitis resolving - wound cont with alginate and offloading - ideally would be good for her to see a assembly worker for [facility] but she will not go. She can come to wound care for wounds and callus care. no real reason needs to be in hospital so would convert antibitoics to outpt management and care in outpt facility Time Spent With Patient Time: Total time managing care of this patient today ____ minutes. Quality Stroke Does the patient have a stroke diagnosis?: No VTE Prior VTE?: No VTE Risk Level:: Medical - moderate - high VTE Device Contraindication: Treatment Not Indicated VTE Drug Contraindication: N/A - Med Ordered
--- NOTE | 2023-09-02 16:03 | PC.NURSE ---
Addendum entered by Jose Manuel Kerr RN 09/02/23 16:08: Pt refused 16:30 POC Original Note: @1520 pt BP 198/97(auto) and 190/108(man). MD Cavazos notified. Pt refused coreg and demadex @ 0830. Per MD asked if Pt would take med @ this time. Pt refused. Pt states makes her nauseaus. Offered Zofran and pt refused. States will take meds in the AM 7/8. MD Cavazos aware.
[2023-09-02 20:33] LABS: Glucose, Whole Blood 124 mg/dL (60-115)
[2023-09-02] MEDS: Doxycycline Monohydrate 100 MG CAPSULE PO (21:15)
[2023-09-02] MEDS: carvediloL 12.5 MG TABLET PO (21:16)
[2023-09-02] MEDS: Torsemide 20 MG TABLET 40 MG PO (21:16)
[2023-09-03 04:00] VITALS: BP 184/100; PULSE 79; RESP 18; TEMP 36; O2SAT 94
[2023-09-03] MEDS: diphenhydrAMINE HCL 50 MG/ML VIAL 25 MG IVPUSH (04:16)
[2023-09-03] MEDS: HYDROmorphone HCl 0.5 MG/0.5 ML SYRINGE IVPUSH (04:16)
[2023-09-03 07:20] LABS: Glucose, Whole Blood 127 mg/dL (60-115)
[2023-09-03 07:45] VITALS: BP 130/67; PULSE 78; RESP 18; TEMP 36.8; O2SAT 96
--- NOTE | 2023-09-03 08:32 | HO.PM.IMPN ---
Subjective Subjective Date of Service: 09/03/23 Interval History: no complaints, frequently refusing meds Physical Exam Vital Signs: Vital Signs: Last Vital Signs Temp 98.3 F 09/03/23 07:45 Pulse 78 09/03/23 07:45 Resp 18 09/03/23 07:45 BP 130/67 09/03/23 07:45 Pulse Ox 96 09/03/23 07:45 O2 Del Method Room Air 09/03/23 07:45 O2 Flow Rate 2 09/01/23 15:24 Oxygen Flow Rate 3 08/27/23 19:13 BMI result Body Mass Index 30.4 Skin: Other: left plantar wound with small superficial opening stable - callus surrounding the right foot wound is also small and superficial and clean - less callus surrounding Objective Data Active Medications Acetaminophen (Acetaminophen 325 Mg Tablet) 650 mg PO Q6H PRN PRN Reason: Pain, Mild (Pain Scale 1-3), fever or headache Calcium Carbonate (Calcium Carbonate 750 Mg Tab.Chew) 750 mg PO Q4H PRN PRN Reason: Heartburn Carvedilol (Carvedilol 12.5 Mg Tablet) 12.5 mg PO BID [facility]; Protocol Last Admin: 09/02/23 21:16 Dose: 12.5 mg Documented By: BAL Diphenhydramine HCl (Diphenhydramine Hcl 50 Mg/Ml Vial) 25 mg IVPUSH Q6H PRN PRN Reason: Itching Last Admin: 09/03/23 04:16 Dose: 25 mg Documented By: BAL Doxycycline Monohydrate (Doxycycline Monohydrate 100 Mg Capsule) 100 mg PO Q12H [facility] Last Admin: 09/02/23 21:15 Dose: 100 mg Documented By: BAL Glucose (Glucose Gel 15 Gm Gel..Gram.) 15 gm PO Q15M PRN; Protocol PRN Reason: per Hypoglycemia Standing Ord. Heparin Sodium (Porcine) (Heparin Sodium,Porcine 5,000 Unit/Ml Vial) 5,000 unit SUBCUT Q12H [facility] Last Admin: 09/02/23 21:27 Dose: Not Given Documented By: BAL Non-Admin Reason: Patient Refused Hydromorphone HCl (Hydromorphone Hcl 0.5 Mg/0.5 Ml Syringe) 0.5 mg IVPUSH Q4H PRN; Protocol PRN Reason: Pain, Severe (Pain Scale 7-10) Last Admin: 09/03/23 04:16 Dose: 0.5 mg Documented By: BAL Piperacillin Sod/Tazobactam (Sod 4.5 gm/ Sodium Chloride) 100 mls @ 200 mls/hr IV Q12H [facility] Last Infusion: 09/02/23 21:51 Dose: Infused Documented By: BAL Dextrose (D10) 250 mls @ 750 mls/hr IV Q15M PRN; Protocol PRN Reason: per Hypoglycemia Standing Ord. Insulin Human Lispro (Insulin Lispro 100 Unit/Ml 3 Ml Vial) 0 unit SUBCUT QIDACHS [facility]; Protocol Last Admin: 09/03/23 07:23 Dose: Not Given Documented By: CORRY Non-Admin Reason: No Insulin Coverage Isosorbide Mononitrate (Isosorbide Mononitrate 30 Mg Tab.Er.24h) 30 mg PO DAILY [facility]; Protocol Last Admin: 09/02/23 08:25 Dose: Not Given Documented By: JENNY Non-Admin Reason: Patient Refused Levetiracetam (Levetiracetam 1,000 Mg Tablet) 1,000 mg PO DAILY [facility] Last Admin: 09/02/23 08:25 Dose: Not Given Documented By: JENNY Non-Admin Reason: Patient Refused Magnesium Hydroxide (Milk Of Magnesia 30 Ml Oral.Susp) 30 ml PO DAILY PRN PRN Reason: Constipation Melatonin (Melatonin 3 Mg Tablet) 6 mg PO BEDTIME PRN PRN Reason: Insomnia Ondansetron HCl (Ondansetron Hcl 4 Mg/2 Ml Vial) 4 mg IVPUSH Q4H PRN PRN Reason: Nausea and Vomiting Last Admin: 08/29/23 01:09 Dose: 4 mg Documented By: LYSWen Sodium Chloride (0.9 % Sodium Chloride Flush 3 Ml Syringe) [facility] Last Admin: 09/02/23 21:58 Dose: Not Given Documented By: BAL Non-Admin Reason: IV Running Torsemide (Torsemide 20 Mg Tablet) 40 mg PO BID [facility]; Protocol Last Admin: 09/02/23 21:16 Dose: 40 mg Documented By: BAL Labs 09/01/23 06:48 09/02/23 08:21 Labs: Laboratory Results - last 24 hr 09/02/23 09/02/23 09/02/23 08:21 11:10 20:28 Anion Gap 19 Estim Creat Clear Calc 18.1 Estimated GFR 10 POC Glucose 120 H 124 H Random Glucose 92 Calcium 9.2 Magnesium 2.3 09/03/23 07:16 Anion Gap Estim Creat Clear Calc Estimated GFR POC Glucose 127 H Random Glucose Calcium Magnesium Assessment and Plan (1) Diabetic foot infection: Status: Acute Plan 32F PMH ESRD on hemodialysis, 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 Diabetic foot infection with nonhealing ulcers and purulent cellulitis Noncompliant with p.o. antibiotics outpatient. continue doxycycline MRI of left foot neg for osteomyelitis and abscess General surgery consult> silver alginate to right foot ulcer, s/p bedside debridement to foot ulcers vascular surgery appreciated - no vascular intervention at this time, may need bka in future hyokalemia replaced ESRD on hemodialysis nephrology (renal and transplant of [place]) for dialysis scheduling T,, [id number] diabetes mellitus ss, ada diet Mood disorder On sertraline Congestive heart failure with reduced ejection fraction with chronic hypoxia no exacerbation continue torsemide, beta-mohamud, HD On baseline 3 L supplemental oxygen CAD/cardiomyopathy On aspirin, Imdur and beta-mohamud Chronic pain with opioid seeking behavior On p.o. opioids. Poorly controlled hypertension due to medication noncompliance Resume home antihypertensives Chronic anemia of kidney disease DVT prophylaxis: Heparin Full code reason for continued hospitalization:plan for [facility] Quality Stroke Does the patient have a stroke diagnosis?: No VTE Prior VTE?: No VTE Risk Level:: Medical - moderate - high VTE Device Contraindication: Treatment Not Indicated VTE Drug Contraindication: N/A - Med Ordered
[2023-09-03] MEDS: carvediloL 12.5 MG TABLET PO (09:18)
[2023-09-03] MEDS: Torsemide 20 MG TABLET 40 MG PO (09:18)
[2023-09-03] MEDS: Isosorbide Mononitrate 30 MG TAB.ER.24H PO (09:18)
[2023-09-03] MEDS: Doxycycline Monohydrate 100 MG CAPSULE PO (09:18)
[2023-09-03] MEDS: levETIRAcetam 1,000 MG TABLET 1000 MG PO (09:18)
[2023-09-03] MEDS: 0.9 % Sodium Chloride Flush 3 ML SYRINGE IVFLUSH (09:21)
--- NOTE | 2023-09-03 10:43 | MHC.CM.PN ---
DP: IVAN RECEIVED WORD FROM MERYL THAT PT LOST HER APPEAL. PT MADE AWARE AND WILL DC HOME TODAY. MD/RN AWARE. PT WILL CONTACT SISTER FOR A RIDE. JEROME HARRISON UPDATED AND DC SUMMARY FAXED TO [phone]
[2023-09-03 11:30] LABS: Glucose, Whole Blood 150 mg/dL (60-115)
== END 2023-09-03 13:17 | disposition home or self-care (01) | DRG 602 ==
LOC: HO.ED 20:20 → HO.EDOVER 22:19 → HO.S3 08-28 07:26
PROVIDERS: Nurse Practitioner Acute Care; Admitting Provider Student in an Organized Health Care Education/Training Program; Emergency Provider Internal Medicine; PCP Internal Medicine; Visit Provider Internal Medicine
DX: L03.116 Cellulitis of left lower limb (principal); N18.6 End stage renal disease; I13.2 Hypertensive heart and chronic kidney disease with heart failure and with stage 5 chronic kidney disease, or end stage renal disease; L97.429 Non-pressure chronic ulcer of left heel and midfoot with unspecified severity; L97.819 Non-pressure chronic ulcer of other part of right lower leg with unspecified severity; I50.22 Chronic systolic (congestive) heart failure; I42.9 Cardiomyopathy, unspecified; J96.11 Chronic respiratory failure with hypoxia; E11.621 Type 2 diabetes mellitus with foot ulcer; E11.22 Type 2 diabetes mellitus with diabetic chronic kidney disease; E11.42 Type 2 diabetes mellitus with diabetic polyneuropathy; H54.8 Legal blindness, as defined in USA; F39 Unspecified mood [affective] disorder; E87.6 Hypokalemia; I25.10 Atherosclerotic heart disease of native coronary artery without angina pectoris; D63.1 Anemia in chronic kidney disease; Z76.5 Malingerer [conscious simulation]; Z99.2 Dependence on renal dialysis; Z99.81 Dependence on supplemental oxygen; Z91.148 Patient's other noncompliance with medication regimen for other reason; Z79.899 Other long term (current) drug therapy
CPT/HCPCS: 36415; 73620; 73718; 80048; 80053; 82947; 83605; 83735; 85025; 85027; 85652; 87040; 90999; 99285; J1170; J1200; J2405; J2543

== ENCOUNTER → 2023-08-27 20:20 | Outpatient (BNV) | payer OTHER, SELFPAY | PROVIDERS: Emergency Provider Internal Medicine; Visit Provider Student in an Organized Health Care Education/Training Program | DX: E11.621 Type 2 diabetes mellitus with foot ulcer (principal); L97.528 Non-pressure chronic ulcer of other part of left foot with other specified severity; L08.9 Local infection of the skin and subcutaneous tissue, unspecified; L03.90 Cellulitis, unspecified | CPT/HCPCS: 99223; 99231; 99232; 99239 ==

== ENCOUNTER → 2023-08-27 22:04 | Outpatient (BNV) | payer OTHER, SELFPAY | PROVIDERS: Admitting Provider Student in an Organized Health Care Education/Training Program; Emergency Provider Internal Medicine; Visit Provider Surgery Vascular Surgery | DX: E11.621 Type 2 diabetes mellitus with foot ulcer (principal); L97.529 Non-pressure chronic ulcer of other part of left foot with unspecified severity | CPT/HCPCS: 99222 ==

== ENCOUNTER → 2023-08-27 22:04 | Outpatient (BNV) | payer OTHER, SELFPAY | PROVIDERS: Admitting Provider Student in an Organized Health Care Education/Training Program; Emergency Provider Internal Medicine; Visit Provider Surgery | DX: E11.628 Type 2 diabetes mellitus with other skin complications (principal); L08.9 Local infection of the skin and subcutaneous tissue, unspecified | CPT/HCPCS: 97597; 99222; 99231; 99232; 99499 ==

== ENCOUNTER 2023-09-08 17:59 | Inpatient (IN) | payer OTHER, SELFPAY ==
--- NOTE | ~2023-09-08 | XR_ITS ---
EXAMINATION: XR CHEST CLINICAL INFORMATION: Congestive heart failure COMPARISON: Chest radiograph 06/16/2023. TECHNIQUE: Frontal view of the chest was obtained. FINDINGS: Right internal jugular catheter catheter in unchanged position terminating over the right atrium. Mild hazy lower bilateral perihilar interstitial opacities. No focal consolidation. Minimal blunting of the right costophrenic angle. No pneumothorax. Cardiomediastinal silhouette is unchanged, enlarged. XR/XR chest 1V IMPRESSION: 1. Mild hazy lower bilateral perihilar interstitial opacities, may reflect mild interstitial pulmonary edema. 2. Probable trace right pleural effusion.
--- NOTE | ~2023-09-08 | XR_ITS ---
EXAMINATION: XR FOOT, LEFT CLINICAL INFORMATION: Left first toe discoloration COMPARISON: Left foot MRI on 08/28/2023 TECHNIQUE: AP and lateral views of the left foot. FINDINGS: Extensive postsurgical and neuropathic changes of the foot including mid metatarsal amputation of the first digit and erosion/remodeling of the fourth digit and mid/hindfoot. Findings are relatively unchanged compared to the exams in early August. There are no definite new erosions. There is diffuse soft tissue swelling of the foot. XR/XR foot LT 2V IMPRESSION: Extensive postsurgical and neuropathic changes of the left foot relatively unchanged compared to the exams in early August. No definite new erosions.
[2023-09-08 18:15] VITALS: BP 181/107; PULSE 92; RESP 18; TEMP 36.6; O2SAT 100
[2023-09-08 18:20] VITALS: BMI 29.9
--- NOTE | 2023-09-08 19:19 | ED.GENADULT ---
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, peripheral arterial disease status post bilateral TMA, poorly controlled hypertension due to noncompliance chronic hypoxic respiratory failure on 4 L oxygen congestive heart failure mood disorder chronic pain with just discharged on 09/03/2023 for foot ulcer infection on doxycycline comes here as her sister noticed bleeding from left 2nd toe from superficial ulcer also patient did not go for dialysis since discharge because of family situation patient does make urine patient goes for dialysis twice a week Sunday and Related Data Home Medications ?Medication ?Instructions ?Recorded ?Confirmed carvedilol 12.5 mg tablet 12.5 mg PO BID 06/05/23 08/28/23 docusate sodium 100 mg capsule 100 mg PO DAILY PRN constipation 06/05/23 08/28/23 isosorbide mononitrate 30 mg 30 mg PO DAILY 06/05/23 08/28/23 tablet,extended release 24 hr torsemide 20 mg tablet 40 mg PO BID 06/05/23 08/28/23 levetiracetam 1,000 mg tablet 1,000 mg PO DAILY 06/17/23 08/28/23 oxycodone 5 mg tablet 5 mg PO TID PRN Pain 06/17/23 08/28/23 calcium carbonate (Calcium Antacid) 1 tab PO TIDWM 08/28/23 08/28/23 cholecalciferol (vitamin D3) 50 50 mcg PO DAILY 08/28/23 08/28/23 mcg (2,000 unit) capsule omeprazole 20 mg capsule,delayed 20 mg PO DAILY 08/28/23 08/28/23 release Previous Rx's ?Medication ?Instructions ?Recorded off loading boot #1 ea 03/14/23 mirtazapine 7.5 mg tablet 7.5 mg PO BEDTIME #90 tabs 06/20/23 sertraline 25 mg tablet 25 mg PO DAILY #30 tabs 06/27/23 doxycycline monohydrate 100 mg 100 mg PO Q12H #14 caps 09/02/23 capsule Allergies Allergy/AdvReac Type Severity Reaction Status Date / Time morphine [MORPHINE] Allergy Intermediate Itching Verified 09/08/23 18:50 azithromycin [From Zithromax] Allergy Hives Verified 09/08/23 18:50 gabapentin Allergy Facial Verified 09/08/23 18:50 Swelling tramadol Allergy Facial Verified 09/08/23 18:50 Swelling vancomycin Allergy Anaphylaxis Verified 09/08/23 18:50 Review of Systems Review of Systems: Yes all other systems are reviewed and are negative [facility] Past Medical History Medical History (Updated 09/09/23 @ 00:24 by Mazin Rubalcava MD) Renal failure Major depressive disorder, single episode, severe Non-compliance with renal dialysis Hypertensive urgency MDD (major depressive disorder) Hypertension Anemia ESRD (end stage renal disease) MDD (major depressive disorder), recurrent episode End-stage renal disease (ESRD) Foot ulcer CKD (chronic kidney disease) Hypertension Diabetic foot Vomiting Renal failure Hypertension Hyperkalemia Metabolic acidosis HFrEF (heart failure with reduced ejection fraction) ESRD on dialysis Migraine Diabetic foot ulcer associated with type 2 diabetes mellitus Chronic pain Gastroparesis Non-compliance with renal dialysis Hypertensive emergency Diabetes ESRD needing dialysis Cardiomyopathy delivery delivered Anemia in chronic kidney disease (CKD) CKD (chronic kidney disease) Headache, migraine Abnormal finding on echocardiogram Elevated troponin Chest pain Acute worsening of stage 3 chronic kidney disease Generalized edema Sepsis Cellulitis Pleural effusion CHF (congestive heart failure) (~06/07/22) Tachycardia Atypical chest pain Bone infection PAD (peripheral artery disease) Severe anemia Cellulitis and abscess of foot DM foot ulcer Osteomyelitis test positive test positive Asthma Depression with anxiety Diabetic retinopathy Type 2 diabetes mellitus with hyperglycemia, with long-term current use of insulin Blind right eye Diabetes Back pain Surgical History 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 Family History Family History Mother Coronary artery disease Myocardial infarction Stroke Diabetes mellitus Father Myocardial infarction Social History Social History Household Members: Family Household Members Other:: sister Housing: Apartment Do you presently have visiting nurse or other home services: Yes Unable to assess alcohol history related to: Unknown Alcohol intake: never 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 Patient Tobacco Use Status: Never used Tobacco e-Cigarette/Vaping Use: Never Used Second Hand Smoke Exposure: No Advance Directives: Yes Advance Directives on File: Yes Advance Directives Date on File: 03/08/20 Do you have a plan to hurt others: No Plan service: No Current occupational status: unemployed and disabled Gender identity: Female Physical Exam ED Vital Signs: Vital Signs - 24 hr 09/08/23 18:15 09/08/23 20:19 09/08/23 20:38 Temperature 98 F Pulse Rate 92 95 100 Respiratory Rate 18 13 Blood Pressure 181/107 H 195/112 H 184/117 H Pulse Oximetry 100 Oxygen Delivery Method Room Air Room Air 09/08/23 21:17 09/08/23 21:45 09/08/23 23:05 Temperature Pulse Rate 79 80 Respiratory Rate 17 13 Blood Pressure 189/117 H 161/97 H 170/105 H Pulse Oximetry 95 96 Oxygen Delivery Method Room Air Room Air BMI result Body Mass Index 29.9 Appearance: Alert. And awake No acute distress. Eyes: Legally blind with opacified right cornea ENT: Pharynx normal. Oral Mucosa moist Neck: Normal inspection. Neck supple. CVS: Normal heart rate and rhythm. Pulses normal. Respiratory: No respiratory distress. Equal air entry bilateral, no wheezing/rales/rhonchi Abdomen: Soft and nontender. Bowel sounds are present, no mass palpable, no CVA tenderness Skin: Skin warm and dry. Normal skin color. Normal skin turgor. Extremities: 2+ lower extremity edema. No calf tenderness bilateral metatarsal amputation, superficial ruptured blister with minor oozing from the base at the tip and lateral margins of left 2nd toe Neuro: Alert and awake Medications Administered Discontinued Medications Generic Name Dose Route Start Last Admin Trade Name Freq PRN Reason Stop Dose Admin Carvedilol 12.5 mg 09/08/23 19:53 09/08/23 20:20 Carvedilol 12.5 Mg Tablet PO 09/08/23 19:54 12.5 mg ONCE ONE Administration Protocol Furosemide 100 mg 09/08/23 20:09 09/08/23 20:24 Furosemide 100 Mg/10 Ml Vial IVPUSH 09/08/23 20:10 100 mg ONCE ONE Administration Protocol Hydromorphone HCl 2 mg 09/08/23 20:44 09/08/23 20:57 Hydromorphone Hcl 2 Mg/Ml Vial IVPUSH 09/08/23 20:45 2 mg ONCE ONE Administration Protocol Calcium Gluconate 2 gm in 100 mls @ 50 mls/hr 09/08/23 20:09 09/08/23 23:23 Calcium Gluconate IV 09/08/23 22:08 Infused ONCE ONE Infusion Labetalol HCl 20 mg 09/08/23 21:15 09/08/23 21:21 Labetalol Hcl 100 Mg/20 Ml Vial IVPUSH 09/08/23 21:16 20 mg ONCE ONE Administration Labetalol HCl 20 mg 09/08/23 23:09 09/08/23 23:35 Labetalol Hcl 100 Mg/20 Ml Vial IVPUSH 09/08/23 23:10 20 mg ONCE ONE Administration Silver Nitrate 1 appl 09/08/23 19:28 09/08/23 19:41 Silver Nitrate Applicator Stick..Ea. TOPICAL 09/08/23 19:29 1 appl ONCE ONE Administration Sodium Bicarbonate 50 meq 09/08/23 20:09 09/08/23 20:21 Sodium Bicarbonate 8.4% 50 Meq/50 Ml Syringe IVPUSH 09/08/23 20:10 50 meq ONCE ONE Administration Sodium Zirconium Cyclosilicate 10 gm 09/08/23 20:09 09/08/23 20:16 Sodium Zirconium Cyclosilicate 10 Gm Powd.Pack PO 09/08/23 20:10 10 gm ONCE ONE Administration Medical Decision Making Medical Decision Making [facility] Narrative: Patient with ruptured blister likely on the left 2nd toe minor oozing from the base silver nitrate was used to cauterize bleeding stopped. Patient missed her dialysis for last 2 visits since discharge last week asymptomatic at this time will check the chemistry patient has elevated blood pressure will give her Lasix and carvedilol Patient's labs came back with showing elevated potassium of 6.5 with creatinine of 10.6 bicarb of 12 case discussed with pusher runner will do dialysis in a.m. patient is saturating 100% on room air will give IV labetalol for blood pressure Differential Diagnosis Differential Diagnoses: The differential diagnosis associated with the presentation includes Consult Healthcare Provider Management of the patient was discussed with: Hospitalist Lab Data MDM Lab Attestation statement: I reviewed the patient's lab results. 09/08/23 19:35 09/08/23 22:38 Labs: Lab Results 09/08/23 09/08/23 Range/Units 19:35 22:38 WBC 4.8 (4.8-10.8) X10*3/uL RBC 3.09 L (4.20-5.50) X10*6/uL Hgb 9.4 L (12.0-16.0) g/dl Hct 29.2 L (37.0-47.0) % MCV 94.5 (80.0-98.0) fL MCH 30.4 (27.0-33.0) pg MCHC 32.2 (31.0-35.0) g/dl RDW 15.3 (11.0-16.0) % Plt Count 138 L (160-400) X10*3/uL MPV 12.1 (9.4-12.3) fL Immature Gran % (Auto) 0.4 (0.0-0.4) % Neut % (Auto) 76.2 H (45-73) % Lymph % (Auto) 11.5 L (20-40) % [place] % (Auto) 8.4 (2-11) % Eos % (Auto) 2.7 (0-4) % Baso % (Auto) 0.8 (0-2) % Lymph # (Auto) 0.6 L (1.2-4.9) X10*3/uL [place] # (Auto) 0.4 (0.1-1.2) X10*3/uL Eos # (Auto) 0.1 (0.0-0.4) X10*3/uL Baso # (Auto) 0.0 (0.0-0.2) X10*3/uL Abs Immat Gran (auto) 0.02 (0.00-0.03) X10*3/uL Absolute Neuts (auto) 3.6 (2.0-8.3) x10*3/uL Absolute Nucleated RBC 0.000 (0.0-0.012) X10*3/uL Nucleated RBC % (auto) 0.0 (0.0-0.2) /100WBC Sodium 135 137 (135-145) mmol/L Potassium 6.5 H* D 5.5 H (3.3-5.1) mmol/L Chloride 111 H 109 H (96-108) mmol/L Carbon Dioxide 12 L 14 L (22-29) mmol/L Anion Gap 19 20 (12-20) BUN 96 H 97 H (9-16) mg/dL Creatinine 10.67 H* 10.74 H* (0.5-1.4) mg/dL Estim Creat Clear Calc 8.0 7.9 Estimated GFR 4 4 Random Glucose 82 82 (60-115) mg/dL Calcium 7.6 L D 8.3 L D (8.4-10.2) mg/dL Independent Interpretation I performed an independent interpretation of an: EKG Interpretation: Sinus tachycardia heart rate 101 beats per minute left axis deviation right bundle-branch block no acute ST-T changes no acute ischemia Critical Care Time Critical Care Time Critical Care Time: Yes Total Critical Care Time: 55 Attestation: The patient was critically ill with a high probability of imminent or life threatening deterioration. I spent greater than60???minutes of discontinuous time evaluating the patient,delivering critical care at the bedside, discussing and evaluating pertinent data with consultants. Critical care time does not include time spent performing separately billable procedures or teaching. Total time spent performing critical care was 55???minutes. Discharge Plan Discharge Clinical Impression: Renal failure, Acute hyperkalemia, Ulcer of left second toe Patient Disposition: Admitted As Inpatient
[2023-09-08] MEDS: Silver Nitrate Applicator STICK..EA. 1 APPL TOPICAL (19:41)
[2023-09-08 19:42] LABS: MANUAL DIFF FLAG NO
[2023-09-08 19:43] LABS: Basophils Percent Auto 0.8 % (0-2); Eosinophils Absolute Auto 0.1 X10*3/uL (0.0-0.4); Eosinophils Percent Auto 2.7 % (0-4); Hematocrit 29.2 % (37.0-47.0); Hemoglobin 9.4 g/dl (12.0-16.0); Imm Gran Abs Auto 0.02 X10*3/uL (0.00-0.03); Imm Gran Pct Auto 0.4 % (0.0-0.4); Lymphocytes Absolute Auto 0.6 X10*3/uL (1.2-4.9); Lymphocytes Percent Auto 11.5 % (20-40); Mean Corpuscular HGB Conc 32.2 g/dl (31.0-35.0); Mean Corpuscular Hemoglobin 30.4 pg (27.0-33.0); Mean Corpuscular Volume 94.5 fL (80.0-98.0); Mean Platelet Volume 12.1 fL (9.4-12.3); Monocytes Absolute Auto 0.4 X10*3/uL (0.1-1.2); Monocytes Percent Auto 8.4 % (2-11); Neutrophils Absolute Auto 3.6 x10*3/uL (2.0-8.3); Neutrophils Percent Auto 76.2 % (45-73); Platelet Count 138 X10*3/uL (160-400); Red Blood Count 3.09 X10*6/uL (4.20-5.50); Red Cell Distribution Width 15.3 % (11.0-16.0); White Blood Count 4.8 X10*3/uL (4.8-10.8)
--- NOTE | 2023-09-08 20:09 | ECG_ITS ---
Test Reason : hyperkalemia Blood Pressure : / mmHG Vent. Rate : 101 BPM Atrial Rate : 101 BPM P-R Int : 154 ms QRS Dur : 144 ms QT Int : 418 ms P-R-T Axes : 040 -42 034 degrees QTc Int : 542 ms Sinus tachycardia Possible Left atrial enlargement Left axis deviation Right bundle branch block Abnormal ECG When compared with ECG of 24-JUN-2023 14:28, No significant change was found Referred By: Mazin Rubalcava Electronically Signed By:Vinny Vera
[2023-09-08 20:12] LABS: Anion Gap 19 (12-20); Blood Urea Nitrogen 96 mg/dL (9-16); Calcium 7.6 mg/dL (8.4-10.2); Carbon Dioxide 12 mmol/L (22-29); Chloride 111 mmol/L (96-108); Estimated Glomerular Filt Rate 4; Glucose Random 82 mg/dL (60-115); Potassium 6.5 mmol/L (3.3-5.1); Sodium 135 mmol/L (135-145)
[2023-09-08] MEDS: Sodium Zirconium Cyclosilicate 10 GM POWD.PACK PO (20:16)
[2023-09-08 20:19] VITALS: BP 195/112; PULSE 95; RESP 13
[2023-09-08] MEDS: carvediloL 12.5 MG TABLET PO (20:20)
[2023-09-08] MEDS: Sodium Bicarbonate 8.4% 50 MEQ/50 ML SYRINGE IVPUSH (20:21)
[2023-09-08] MEDS: Furosemide 100 MG/10 ML VIAL IVPUSH (20:24)
[2023-09-08] MEDS: Calcium Gluconate/NaCl,Iso-Osm 2 GM/100 ML PLAST..BAG IV (20:34)
[2023-09-08 20:38] VITALS: BP 184/117; PULSE 100
[2023-09-08] MEDS: HYDROmorphone HCl 2 MG/ML VIAL IVPUSH (20:57)
[2023-09-08 21:17] VITALS: BP 189/117
[2023-09-08] MEDS: Labetalol HCL 100 MG/20 ML VIAL 20 MG IVPUSH ×2 (21:21→23:35)
--- NOTE | 2023-09-08 21:34 | W.PM.DNNEP ---
Subjective Subjective Date of Service: 09/08/23 This patient was seen during dialysis. Physical Exam Vital Signs: Vital Signs: Last Vital Signs Temp 98 F 09/08/23 18:15 Pulse 100 09/08/23 20:38 Resp 13 09/08/23 20:19 BP 189/117 H 09/08/23 21:17 Pulse Ox 100 09/08/23 18:15 O2 Del Method Room Air 09/08/23 20:19 BMI result Body Mass Index 29.9 Assessment & Plan Assessment and plan (1) Diabetic foot infection: Status: Acute Plan Patient missed dialysis Potassium 6.5 ( will be treated medically tonight) Spoken to dialysis nurse Holly : for dialysis tomorrow ( on Sunday) HD 4 hours Heparin free Blood flow 400 Dialysate flow 500 Bath K: per protocol Ultrafiltration : per crit line 14 % or 3-3.5 liter UF Dialyzer as used in her prior dialysis For hypotension if BP <90, can give normal saline 250cc bolus 3x And then Back to her regular schedule on sunday Time Spent With Patient Time: Total time managing care of this patient today ___0_ minutes. Procedures Date of Service Date of Service: 09/08/23
[2023-09-08 21:45] VITALS: BP 161/97; PULSE 79; RESP 17; O2SAT 95
[2023-09-08 23:05] VITALS: BP 170/105; PULSE 80; RESP 13; O2SAT 96
[2023-09-08 23:07] LABS: Anion Gap 20 (12-20); Blood Urea Nitrogen 97 mg/dL (9-16); Calcium 8.3 mg/dL (8.4-10.2); Carbon Dioxide 14 mmol/L (22-29); Chloride 109 mmol/L (96-108); Creatinine Clr Calc Pharmacy 7.9; Estimated Glomerular Filt Rate 4; Glucose Random 82 mg/dL (60-115); Potassium 5.5 mmol/L (3.3-5.1); Sodium 137 mmol/L (135-145)
--- NOTE | 2023-09-08 23:49 | PC.NURSE ---
bilateral feet unwrapped by hospitalist, pictures taken, feet rewrapped by pt and RN
[2023-09-09] VITALS (9 sets, daily range): BP systolic 143–170; BP diastolic 75–100; PULSE 77–88; RESP 14–20; TEMP 36–36.6; O2SAT 94–99; BMI 22.6
[2023-09-09 00:25] LABS: C Reactive Protein 0.95 mg/dL (< or = 0.50)
[2023-09-09 00:39] LABS: Venous Blood Gas Refer to POC result
[2023-09-09 00:39] LABS: VBG Base Excess -12.9 mmol/L; VBG HCO3 12 mmol/L (22-26); VBG pCO2 27 mmHg; VBG pH 7.26 (7.32-7.43); VBG pO2 51 mmHg
--- NOTE | 2023-09-09 00:50 | P.HPHOSP_ITS ---
History of Present Illness Date of Service: 09/08/23 Attending physician on admission: Lele Maria Chief Complaint: Some blood coming out from my left foot Shereen Taylor is a 33 years old woman with past medical history significant for ESRD on HD, multiple hospitalizations due to noncompliance with hemodialysis, diabetic retinopathy with blindness, peripheral vascular disease (s/p bilat transmetatarsal amputation), poorly controlled hypertension due to noncompliance with medications, chronic respiratory failure on supplemental oxygen, HFrEF, mood disorder, chronic pain with opiate seeking behavior presents to the ED after her sister noted there was blood coming out from her left 2rd toe which is also turning black. She denied associated pain, fever or chills. She also said that she missed her hemodialysis session last week because she was attending her wound few neuro services. She was admitted at the beginning of the month with diagnosis of diabetic foot infection with nonhealing ulcer and purulent cellulitis due to noncompliant of p.o. antibiotics as an outpatient. During this last hospitalization she was treated with Zosyn and doxycycline. An MRI was performed showed no osteomyelitis or abscess. General surgery performed bedside debridement. Vascular surgery felt the patient will not benefit from vascular intervention but may need BKA in the future. In the ED today, she was found to have significant hypertension (max 195/112; most recent 170/105). Blood workup showed no leukocytosis. Hemoglobin is at baseline. There is hyperkalemia of 6.5 (most recent 5.5), bicarb is 12, venous pH is 7.26. ED tx: Furosemide 80 mg p.o., Coreg 12.5 mg PO, calcium gluconate 2 g IV, Lasix 100 mg IV, Lokelma 10 g p.o., bicarb 50 mg IV, Dilaudid 2 mg IV, labetalol 40 mg IV Review of Systems 2 Review of Systems: All 12 systems were reviewed and normal except as noted in HPI. [facility] Medical History (Updated 09/09/23 @ 01:43 by Lele Maria MD) Metabolic acidosis Renal failure Major depressive disorder, single episode, severe Non-compliance with renal dialysis Hypertensive urgency MDD (major depressive disorder) Hypertension Anemia ESRD (end stage renal disease) MDD (major depressive disorder), recurrent episode End-stage renal disease (ESRD) Foot ulcer CKD (chronic kidney disease) Hypertension Diabetic foot Vomiting Renal failure Hypertension Hyperkalemia HFrEF (heart failure with reduced ejection fraction) ESRD on dialysis Migraine Diabetic foot ulcer associated with type 2 diabetes mellitus Chronic pain Gastroparesis Non-compliance with renal dialysis Hypertensive emergency Diabetes ESRD needing dialysis Cardiomyopathy delivery delivered Anemia in chronic kidney disease (CKD) CKD (chronic kidney disease) Headache, migraine Abnormal finding on echocardiogram Elevated troponin Chest pain Acute worsening of stage 3 chronic kidney disease Generalized edema Sepsis Cellulitis Pleural effusion CHF (congestive heart failure) (~06/07/22) Tachycardia Atypical chest pain Bone infection PAD (peripheral artery disease) Severe anemia Cellulitis and abscess of foot DM foot ulcer Osteomyelitis test positive test positive Asthma Depression with anxiety Diabetic retinopathy Type 2 diabetes mellitus with hyperglycemia, with long-term current use of insulin Blind right eye Diabetes Back pain Family History Mother Coronary artery disease Myocardial infarction Stroke Diabetes mellitus Father Myocardial infarction Surgical History 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 Social History Household Members: Family Household Members Other:: sister Housing: Apartment Do you presently have visiting nurse or other home services: Yes Unable to assess alcohol history related to: Unknown Alcohol intake: never 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 Patient Tobacco Use Status: Never used Tobacco e-Cigarette/Vaping Use: Never Used Second Hand Smoke Exposure: No Advance Directives: Yes Advance Directives on File: Yes Advance Directives Date on File: 03/08/20 Do you have a plan to hurt others: No Plan service: No Current occupational status: unemployed and disabled Gender identity: Female Meds Allergies Allergy/AdvReac Type Severity Reaction Status Date / Time morphine [MORPHINE] Allergy Intermediate Itching Verified 09/08/23 18:50 azithromycin [From Zithromax] Allergy Hives Verified 09/08/23 18:50 gabapentin Allergy Facial Verified 09/08/23 18:50 Swelling tramadol Allergy Facial Verified 09/08/23 18:50 Swelling vancomycin Allergy Anaphylaxis Verified 09/08/23 18:50 Active Medications: Current Medications Sodium Chloride (0.9 % Sodium Chloride Flush 3 Ml Syringe) [facility] Medications ?Medication ?Instructions ?Recorded ?Confirmed ?Last Taken ?Type carvedilol 12.5 mg tablet 12.5 mg PO BID 06/05/23 08/28/23 06/16/23 History docusate sodium 100 mg capsule 100 mg PO DAILY PRN constipation 06/05/23 08/28/23 Unknown History isosorbide mononitrate 30 mg 30 mg PO DAILY 06/05/23 08/28/23 06/16/23 History tablet,extended release 24 hr torsemide 20 mg tablet 40 mg PO BID 06/05/23 08/28/23 06/16/23 History levetiracetam 1,000 mg tablet 1,000 mg PO DAILY 06/17/23 08/28/23 06/16/23 History oxycodone 5 mg tablet 5 mg PO TID PRN Pain 06/17/23 08/28/23 Unknown History calcium carbonate (Calcium Antacid) 1 tab PO TIDWM 08/28/23 08/28/23 Unknown History cholecalciferol (vitamin D3) 50 50 mcg PO DAILY 08/28/23 08/28/23 Unknown History mcg (2,000 unit) capsule omeprazole 20 mg capsule,delayed 20 mg PO DAILY 08/28/23 08/28/23 Unknown History release Physical Exam 2 Vital Signs and Narrative: Vital Signs: Last Vital Signs Temp 98 F 09/08/23 18:15 Pulse 80 09/08/23 23:05 Resp 13 09/08/23 23:05 BP 170/105 H 09/08/23 23:05 Pulse Ox 96 09/08/23 23:05 O2 Del Method Room Air 09/08/23 23:05 BMI result Body Mass Index 29.9 Constitutional - Awake and Alert, No apparent distress. Afebrile. Cooperative. HEENT - Right eye: Hyperemesis sclerae, clouded cornea. Heart - RRR, No murmur Lungs - Normal lung expansion, Normal respiratory effort, No respiratory distress, CTA bilaterally Abdomen - NT / ND; +BS; No rebound or guarding - No CVA tenderness Extremities: Musculoskeletal - Normal inspection, normal ROM Skin - Warm/Dry Neurological - Alert & oriented x3. No focal weakness. Normal speech. Psychological - Appropriate affect Results Labs 09/08/23 19:35 09/08/23 22:38 Labs: Laboratory Results - last 24 hr 09/08/23 09/08/23 09/09/23 19:35 22:38 00:30 MCV 94.5 MCH 30.4 MCHC 32.2 RDW 15.3 Plt Count 138 L MPV 12.1 Immature Gran % (Auto) 0.4 Neut % (Auto) 76.2 H Lymph % (Auto) 11.5 L [place] % (Auto) 8.4 Eos % (Auto) 2.7 Baso % (Auto) 0.8 Lymph # (Auto) 0.6 L [place] # (Auto) 0.4 Eos # (Auto) 0.1 Baso # (Auto) 0.0 Abs Immat Gran (auto) 0.02 Absolute Neuts (auto) 3.6 Absolute Nucleated RBC 0.000 Nucleated RBC % (auto) 0.0 Hold Purple Top SEE NOTE VBG pH VBG pCO2 VBG pO2 VBG HCO3 VBG O2 Saturation VBG Base Excess Anion Gap 19 20 Estim Creat Clear Calc 8.0 7.9 Estimated GFR 4 4 Random Glucose 82 82 Calcium 7.6 L D 8.3 L D C-Reactive Protein 0.95 H 09/09/23 00:31 MCV MCH MCHC RDW Plt Count MPV Immature Gran % (Auto) Neut % (Auto) Lymph % (Auto) [place] % (Auto) Eos % (Auto) Baso % (Auto) Lymph # (Auto) [place] # (Auto) Eos # (Auto) Baso # (Auto) Abs Immat Gran (auto) Absolute Neuts (auto) Absolute Nucleated RBC Nucleated RBC % (auto) Hold Purple Top VBG pH 7.26 L VBG pCO2 27 VBG pO2 51 VBG HCO3 12 L VBG O2 Saturation 74.0 VBG Base Excess -12.9 Anion Gap Estim Creat Clear Calc Estimated GFR Random Glucose Calcium C-Reactive Protein Imaging Radiologist's Impressions: Impressions Chest X-Ray 09/08/23 20:52 IMPRESSION: 1. Mild hazy lower bilateral perihilar interstitial opacities, may reflect mild interstitial pulmonary edema. 2. Probable trace right pleural effusion. Assessment and Plan (1) Toe necrosis: Status: Acute (2) Metabolic acidosis: Status: Acute (3) Acute hyperkalemia: Status: Acute Plan Shereen Taylor is a 33 years old woman admitted with: * Left 2nd toe necrosis. Admit to hospitalist service. Start empiric IV antibiotic therapy with vancomycin and Zosyn. Obtain left foot x-ray. Surgery consult. * Hyperkalemia associated with metabolic acidosis secondary to ESRD + noncompliance with hemodialysis. Continue Lokelma and bicarb. Continue to monitor bicarb and potassium level. Nephrology consult for inpatient dialysis. * Uncontrolled hypertension. Continue Coreg. Hydralazine 50 mg PO TID. * Type 2 diabetes mellitus. Blood glucose check before meals at bedtime. Insulin sliding scale. Diabetic diet. * Mood disorder. Continue sertraline. * HFrEF + chronic respiratory failure. Continue oxygen, diuretics, carvedilol and hemodialysis. * CAD. Continue aspirin, Imdur and carvedilol. * Chronic pain with opiate seeking behavior. Avoid opiates. * Chronic anemia. Continue to monitor. Code status: Full DVT prophylaxis: heparin Patient will need hospitalization for at least 2 midnights for left 2nd toe necrosis for empiric IV antibiotic therapy and evaluation by Surgical Service. Patient will also need urgent dialysis. Quality Stroke Does the patient have a stroke diagnosis?: No VTE Prior VTE?: No VTE Risk Level:: Medical - moderate - high VTE Device Contraindication: Treatment Not Indicated VTE Drug Contraindication: N/A - Med Ordered
[2023-09-09 02:09] LABS: Glucose, Whole Blood 78 mg/dL (60-115)
[2023-09-09] MEDS: hydrALAZINE HCl 50 MG TABLET PO ×4 (02:25→20:00)
[2023-09-09] MEDS: Sodium Bicarbonate 650 MG TABLET PO (02:25)
[2023-09-09] MEDS: 0.9 % Sodium Chloride Flush 3 ML SYRINGE IVFLUSH ×2 (02:26→17:01)
--- NOTE | 2023-09-09 02:31 | PC.NURSE ---
blood cultures not ordered, confirmed with MD Noonan, blood cultures now ordered, ABX delayed. waiting for phlebotomy. report given to inswapna BETH
[2023-09-09] MEDS: Piperacillin Sodium/Tazobactam 2.25 GM in 0.9 % Sodium Chloride 50 ML IV ×3 (03:46→19:50)
[2023-09-09 03:47] LABS: MANUAL DIFF FLAG NO
[2023-09-09 03:49] LABS: Basophils Percent Auto 0.8 % (0-2); Eosinophils Absolute Auto 0.1 X10*3/uL (0.0-0.4); Eosinophils Percent Auto 2.3 % (0-4); Hematocrit 27.3 % (37.0-47.0); Hemoglobin 8.8 g/dl (12.0-16.0); Imm Gran Abs Auto 0.01 X10*3/uL (0.00-0.03); Imm Gran Pct Auto 0.3 % (0.0-0.4); Lymphocytes Absolute Auto 0.6 X10*3/uL (1.2-4.9); Lymphocytes Percent Auto 14.2 % (20-40); Mean Corpuscular HGB Conc 32.2 g/dl (31.0-35.0); Mean Corpuscular Hemoglobin 30.2 pg (27.0-33.0); Mean Corpuscular Volume 93.8 fL (80.0-98.0); Mean Platelet Volume 12.3 fL (9.4-12.3); Monocytes Absolute Auto 0.3 X10*3/uL (0.1-1.2); Neutrophils Absolute Auto 2.9 x10*3/uL (2.0-8.3); Neutrophils Percent Auto 74.4 % (45-73); Platelet Count 128 X10*3/uL (160-400); Red Blood Count 2.91 X10*6/uL (4.20-5.50); Red Cell Distribution Width 15.2 % (11.0-16.0); White Blood Count 3.9 X10*3/uL (4.8-10.8)
[2023-09-09] MEDS: diphenhydrAMINE HCL 25 MG CAPSULE 50 MG PO ×2 (03:57→10:23)
[2023-09-09] MEDS: ondansetron HCL 4 MG/2 ML VIAL IVPUSH ×3 (03:57→21:56)
[2023-09-09 04:15] LABS: Alanine Aminotransferase 11 U/L (0-31); Alkaline Phosphatase 129 U/L (39-117); Anion Gap 19 (12-20); Aspartate Amino Transferase 17 U/L (5-31); Bilirubin Total 0.9 mg/dL (0.0-1.0); Blood Urea Nitrogen 96 mg/dL (9-16); Calcium 8.6 mg/dL (8.4-10.2); Carbon Dioxide 12 mmol/L (22-29); Chloride 107 mmol/L (96-108); Creatinine Clr Calc Pharmacy 7.1; Estimated Glomerular Filt Rate 4; Glucose Random 100 mg/dL (60-115); Potassium 5.3 mmol/L (3.3-5.1); Sodium 133 mmol/L (135-145); Total Protein 7.5 g/dL (6.5-8.0)
[2023-09-09] MEDS: Acetaminophen 1,000 MG/100 ML PIGGYBACK 400 MG IV (04:18)
[2023-09-09] MEDS: Doxycycline Hyclate 100 MG in 0.9 % Sodium Chloride 250 ML 166.67 MG IV ×2 (04:34→17:02)
[2023-09-09 07:28] LABS: Glucose, Whole Blood 79 mg/dL (60-115)
--- NOTE | 2023-09-09 07:30 | PHA.MEDREC ---
Pharmacy Consult ? Medication Reconciliation Pharmacy has completed the medication reconciliation. Pt recently discharged 09/03/23. Utilized [employer].
--- NOTE | 2023-09-09 10:12 | PM.CNGS ---
History of Present Illness Consult details Consult date: 09/09/23 Narrative: 33-year-old female with end-stage renal disease, on hemodialysis, peripheral vascular disease, previous CVA, admitted because of pain on the left foot. She is known to the service because of multiple previous admissions. She has had ulcers on the plantar aspect her foot which had been debrided previously lap at bedside He has had transmetatarsal amputation of the right foot and amputation of the 1st and 2nd toes of the left. This time, she was noted to have some discoloration of the 3rd toe on the left. I was therefore consulted She has had chronic pain on this area as well. She continues to be on hemodialysis although seems to be poorly compliant with this. Patient is also known to be legally blind. Review of Systems Constitutional: Constitutional: Denies chills and Denies fever(s) Cardiovascular: Cardiovascular: Denies chest pain Respiratory: Respiratory: Denies cough Gastrointestinal: Gastrointestinal: Denies abdominal pain Genitourinary: Comments: Has end-stage renal disease on hemodialysis Musculoskeletal: Musculoskeletal: Reports abnormal gait Neurologic: Reports abnormal gait [facility] Past Medical History Medical History (Updated 09/11/23 @ 14:16 by Janelle Tellez MD) ESRD (end stage renal disease) Hyperkalemia Metabolic acidosis Renal failure Major depressive disorder, single episode, severe Non-compliance with renal dialysis Hypertensive urgency MDD (major depressive disorder) Hypertension Anemia MDD (major depressive disorder), recurrent episode End-stage renal disease (ESRD) Foot ulcer CKD (chronic kidney disease) Hypertension Diabetic foot Vomiting Renal failure Hypertension HFrEF (heart failure with reduced ejection fraction) ESRD on dialysis Migraine Diabetic foot ulcer associated with type 2 diabetes mellitus Chronic pain Gastroparesis Non-compliance with renal dialysis Hypertensive emergency Diabetes ESRD needing dialysis Cardiomyopathy delivery delivered Anemia in chronic kidney disease (CKD) CKD (chronic kidney disease) Headache, migraine Abnormal finding on echocardiogram Elevated troponin Chest pain Acute worsening of stage 3 chronic kidney disease Generalized edema Sepsis Cellulitis Pleural effusion CHF (congestive heart failure) (~06/07/22) Tachycardia Atypical chest pain Bone infection PAD (peripheral artery disease) Severe anemia Cellulitis and abscess of foot DM foot ulcer Osteomyelitis Asthma Depression with anxiety Diabetic retinopathy Type 2 diabetes mellitus with hyperglycemia, with long-term current use of insulin Blind right eye Diabetes Back pain Family History Family History Mother Coronary artery disease Myocardial infarction Stroke Diabetes mellitus Father Myocardial infarction Surgical History Surgical History 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 Social History Social History Household Members: Family Household Members Other:: sister Housing: Apartment Do you presently have visiting nurse or other home services: No Unable to assess alcohol history related to: Unknown Alcohol intake: never 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 Patient Tobacco Use Status: Never used Tobacco e-Cigarette/Vaping Use: Never Used Second Hand Smoke Exposure: No Advance Directives Date on File: 03/08/20 service: No Current occupational status: unemployed and disabled Gender identity: Female Meds Allergies Allergy/AdvReac Type Severity Reaction Status Date / Time morphine [MORPHINE] Allergy Intermediate Itching Verified 09/08/23 18:50 azithromycin [From Zithromax] Allergy Hives Verified 09/08/23 18:50 gabapentin Allergy Facial Verified 09/08/23 18:50 Swelling tramadol Allergy Facial Verified 09/08/23 18:50 Swelling vancomycin Allergy Anaphylaxis Verified 09/08/23 18:50 Active Medications: Current Medications Calcium Carbonate (Calcium Carbonate 750 Mg Tab.Chew) 300 mg PO TIDWM [facility] Carvedilol (Carvedilol 12.5 Mg Tablet) 12.5 mg PO BID [facility]; Protocol Diphenhydramine HCl (Diphenhydramine Hcl 25 Mg Capsule) 50 mg PO Q6H PRN PRN Reason: Itching Last Admin: 09/09/23 03:57 Dose: 50 mg Docusate Sodium (Docusate Sodium 100 Mg Capsule) 100 mg PO DAILY PRN PRN Reason: constipation Glucose (Glucose Gel 15 Gm Gel..Gram.) 15 gm PO Q15M PRN; Protocol PRN Reason: per Hypoglycemia Standing Ord. Hydralazine HCl (Hydralazine Hcl 50 Mg Tablet) 50 mg PO TID [facility]; Protocol Last Admin: 09/09/23 02:25 Dose: 50 mg Dextrose (D10) 250 mls @ 750 mls/hr IV Q15M PRN; Protocol PRN Reason: per Hypoglycemia Standing Ord. Piperacillin Sod/Tazobactam (Sod 2.25 gm/ Sodium Chloride) 50 mls @ 100 mls/hr IV Q8H [facility] Last Infusion: 09/09/23 04:25 Dose: Infused Doxycycline Hyclate 100 mg/ (Sodium Chloride) 250 mls @ 166.67 mls/hr IV Q12H [facility] Last Infusion: 09/09/23 06:04 Dose: Infused Insulin Human Lispro (Insulin Lispro 100 Unit/Ml 3 Ml Vial) 0 unit SUBCUT QIDACHS [facility]; Protocol Last Admin: 09/09/23 09:06 Dose: Not Given Isosorbide Mononitrate (Isosorbide Mononitrate 30 Mg Tab.Er.24h) 30 mg PO DAILY [facility]; Protocol Levetiracetam (Levetiracetam 1,000 Mg Tablet) 1,000 mg PO DAILY [facility] Mirtazapine (Mirtazapine 7.5 Mg Tablet) 7.5 mg PO BEDTIME [facility] Omeprazole (Omeprazole 20 Mg Capsule.Dr) 20 mg PO DAILY@0630 [facility] Ondansetron HCl (Ondansetron Hcl 4 Mg/2 Ml Vial) 4 mg IVPUSH Q4H PRN PRN Reason: Nausea and Vomiting Last Admin: 09/09/23 03:57 Dose: 4 mg Sertraline HCl (Sertraline Hcl 25 Mg Tablet) 25 mg PO DAILY [facility] Sodium Chloride (0.9 % Sodium Chloride Flush 3 Ml Syringe) 3 ml IVFLUSH QSHIFT [facility] Last Admin: 09/09/23 09:06 Dose: Not Given Sodium Zirconium Cyclosilicate (Sodium Zirconium Cyclosilicate 10 Gm Powd.Pack) 10 gm PO TID [facility] Stop: 09/10/23 21:01 Last Admin: 09/09/23 04:21 Dose: Not Given Torsemide (Torsemide 20 Mg Tablet) 40 mg PO BID [facility]; Protocol Vitamin D (Cholecalciferol (Vitamin D3) 25 Mcg Tablet) 50 mcg PO DAILY [facility] Home Medications ?Medication ?Instructions ?Recorded ?Confirmed ?Last Taken ?Type carvedilol 12.5 mg tablet 12.5 mg PO BID 06/05/23 09/09/23 06/16/23 History docusate sodium 100 mg capsule 100 mg PO DAILY PRN constipation 06/05/23 09/09/23 Unknown History isosorbide mononitrate 30 mg 30 mg PO DAILY 04/11/1909/09/23 06/16/23 History tablet,extended release 24 hr torsemide 20 mg tablet 40 mg PO BID 06/05/23 09/09/23 06/16/23 History levetiracetam 1,000 mg tablet 1,000 mg PO DAILY 06/17/23 09/09/23 06/16/23 History oxycodone 5 mg tablet 5 mg PO TID PRN Pain 06/17/23 09/09/23 Unknown History calcium carbonate (Calcium Antacid) 1 tab PO TIDWM 08/28/23 09/09/23 Unknown History cholecalciferol (vitamin D3) 50 50 mcg PO DAILY 08/28/23 09/09/23 Unknown History mcg (2,000 unit) capsule omeprazole 20 mg capsule,delayed 20 mg PO DAILY@0630 08/28/23 09/09/23 Unknown History release Physical Exam Vital Signs: Vital Signs: Last Vital Signs Temp 96.8 F 09/09/23 04:00 Pulse 79 09/09/23 04:00 Resp 16 09/09/23 04:00 BP 166/87 H 09/09/23 05:12 Pulse Ox 95 09/09/23 04:00 O2 Del Method Room Air 09/09/23 04:00 BMI result Body Mass Index 22.6 Const: Other: Undergoing hemodialysis General: no acute distress Eyes: Other: Visually impaired Resp: Effort & Inspection: normal respiratory effort Cardio: Rate: regular rate GI: Palpation (GI): Soft to palpation and nontender Extrem: Other: Right foot with an old transmetatarsal amputation, well healed Left foot with note of old amputations of the 1st and 2nd toes, well healed, some discoloration of the 3rd toe on the left, ulcer on the plantar aspect of the left foot seems to be clean and this had been previously debrided Results Labs 09/09/23 03:35 09/11/23 13:39 Labs: Abnormal lab results 09/08/23 09/08/23 09/09/23 Range/Units 19:35 22:38 00:31 WBC (4.8-10.8) X10*3/uL RBC 3.09 L (4.20-5.50) X10*6/uL Hgb 9.4 L (12.0-16.0) g/dl Hct 29.2 L (37.0-47.0) % Plt Count 138 L (160-400) X10*3/uL Neut % (Auto) 76.2 H (45-73) % Lymph % (Auto) 11.5 L (20-40) % Lymph # (Auto) 0.6 L (1.2-4.9) X10*3/uL VBG pH 7.26 L (7.32-7.43) VBG HCO3 12 L (22-26) mmol/L Sodium (135-145) mmol/L Potassium 6.5 H* D 5.5 H (3.3-5.1) mmol/L Chloride 111 H 109 H (96-108) mmol/L Carbon Dioxide 12 L 14 L (22-29) mmol/L BUN 96 H 97 H (9-16) mg/dL Creatinine 10.67 H* 10.74 H* (0.5-1.4) mg/dL Calcium 7.6 L D 8.3 L D (8.4-10.2) mg/dL Alkaline Phosphatase (39-117) U/L C-Reactive Protein 0.95 H (< or = 0.50) mg/dL Albumin (3.5-5.0) g/dL 09/09/23 Range/Units 03:35 WBC 3.9 L (4.8-10.8) X10*3/uL RBC 2.91 L (4.20-5.50) X10*6/uL Hgb 8.8 L (12.0-16.0) g/dl Hct 27.3 L (37.0-47.0) % Plt Count 128 L (160-400) X10*3/uL Neut % (Auto) 74.4 H (45-73) % Lymph % (Auto) 14.2 L (20-40) % Lymph # (Auto) 0.6 L (1.2-4.9) X10*3/uL VBG pH (7.32-7.43) VBG HCO3 (22-26) mmol/L Sodium 133 L (135-145) mmol/L Potassium 5.3 H (3.3-5.1) mmol/L Chloride (96-108) mmol/L Carbon Dioxide 12 L (22-29) mmol/L BUN 96 H (9-16) mg/dL Creatinine 10.33 H* (0.5-1.4) mg/dL Calcium (8.4-10.2) mg/dL Alkaline Phosphatase 129 H (39-117) U/L C-Reactive Protein (< or = 0.50) mg/dL Albumin 3.0 L (3.5-5.0) g/dL Short CBC 09/08/23 09/09/23 Range/Units 19:35 03:35 WBC 4.8 3.9 L (4.8-10.8) X10*3/uL Hgb 9.4 L 8.8 L (12.0-16.0) g/dl Hct 29.2 L 27.3 L (37.0-47.0) % Plt Count 138 L 128 L (160-400) X10*3/uL BMP 09/08/23 09/08/23 09/09/23 19:35 22:38 03:35 Sodium 135 137 133 L Potassium 6.5 H* D 5.5 H 5.3 H Chloride 111 H 109 H 107 Carbon Dioxide 12 L 14 L 12 L BUN 96 H 97 H 96 H Creatinine 10.67 H* 10.74 H* 10.33 H* Calcium 7.6 L D 8.3 L D 8.6 Liver Function 09/09/23 Range/Units 03:35 Total Bilirubin 0.9 (0.0-1.0) mg/dL AST 17 (5-31) U/L ALT 11 (0-31) U/L Alkaline Phosphatase 129 H (39-117) U/L Albumin 3.0 L (3.5-5.0) g/dL All other labs normal. Assessment and Plan (1) Toe necrosis: Status: Acute She has significant discoloration on 3rd toe on the left. She has known peripheral vascular disease. There is no ongoing gangrene but she does have chronic pain I explained to her then that 1 option is to proceed with amputation of the remaining 3rd 4th and 5th toes on the left as there would be benefit to keeping the 4th and 5th toes if we were to amputate the 3rd toe. There is no ongoing gangrene at this time She has not need to decide on surgical intervention for now I will follow along while she has in the hospital. Procedures Date of Service Date of Service: 09/12/23
--- NOTE | 2023-09-09 10:53 | HO.PM.IMPN ---
Subjective Subjective Date of Service: 09/09/23 Interval History: Seen and examined this morning Follow-up for hyperkalemia, missed hemodialysis, left 3rd toe ulcer Review of Systems Review of Systems: Yes all other systems are reviewed and are negative Constitutional Constitutional: Denies chills and Denies fever(s) Cardiovascular Cardiovascular: Denies chest pain and Denies dyspnea Respiratory Respiratory: Denies dyspnea Physical Exam Vital Signs: Vital Signs: Last Vital Signs Temp 97.9 F 09/09/23 10:29 Pulse 88 09/09/23 10:29 Resp 18 09/09/23 10:29 BP 162/78 H 09/09/23 10:29 Pulse Ox 98 09/09/23 10:29 O2 Del Method Room Air 09/09/23 10:29 BMI result Body Mass Index 22.6 Const: General: cooperative, comfortable, no acute distress, alert and awake Nutritional Appearance: average body habitus Orientation/consciousness: patient oriented x3 Resp: Effort & Inspection: normal respiratory effort, able to speak in complete sentences, no respiratory distress and no use of accessory muscles Cardio: Rate: regular rate GI: Inspection: No distended Palpation (GI): Soft to palpation and nontender Neuro: General: patient oriented x3, moves all extremities and CN's II-XI intact bilaterally Extrem: Other: b/l feet wrapped in c/d/i dressings General: Yes no pedal edema Objective Data Active Medications Calcium Carbonate (Calcium Carbonate 750 Mg Tab.Chew) 300 mg PO TIDWM [facility] Carvedilol (Carvedilol 12.5 Mg Tablet) 12.5 mg PO BID [facility]; Protocol Diphenhydramine HCl (Diphenhydramine Hcl 25 Mg Capsule) 50 mg PO Q6H PRN PRN Reason: Itching Last Admin: 09/09/23 10:23 Dose: 50 mg Documented By: AUBREY Docusate Sodium (Docusate Sodium 100 Mg Capsule) 100 mg PO DAILY PRN PRN Reason: constipation Glucose (Glucose Gel 15 Gm Gel..Gram.) 15 gm PO Q15M PRN; Protocol PRN Reason: per Hypoglycemia Standing Ord. Hydralazine HCl (Hydralazine Hcl 50 Mg Tablet) 50 mg PO TID [facility]; Protocol Last Admin: 09/09/23 10:23 Dose: 50 mg Documented By: AUBREY Dextrose (D10) 250 mls @ 750 mls/hr IV Q15M PRN; Protocol PRN Reason: per Hypoglycemia Standing Ord. Piperacillin Sod/Tazobactam (Sod 2.25 gm/ Sodium Chloride) 50 mls @ 100 mls/hr IV Q8H [facility] Last Admin: 09/09/23 10:23 Dose: 100 mls/hr Documented By: AUBREY Doxycycline Hyclate 100 mg/ (Sodium Chloride) 250 mls @ 166.67 mls/hr IV Q12H [facility] Last Infusion: 09/09/23 06:04 Dose: Infused Documented By: DANIEL Insulin Human Lispro (Insulin Lispro 100 Unit/Ml 3 Ml Vial) 0 unit SUBCUT QIDACHS [facility]; Protocol Last Admin: 09/09/23 09:06 Dose: Not Given Documented By: AUBREY Non-Admin Reason: Off unit: Dialysis Isosorbide Mononitrate (Isosorbide Mononitrate 30 Mg Tab.Er.24h) 30 mg PO DAILY [facility]; Protocol Levetiracetam (Levetiracetam 1,000 Mg Tablet) 1,000 mg PO DAILY [facility] Mirtazapine (Mirtazapine 7.5 Mg Tablet) 7.5 mg PO BEDTIME [facility] Omeprazole (Omeprazole 20 Mg Capsule.Dr) 20 mg PO DAILY@0630 [facility] Ondansetron HCl (Ondansetron Hcl 4 Mg/2 Ml Vial) 4 mg IVPUSH Q4H PRN PRN Reason: Nausea and Vomiting Last Admin: 09/09/23 10:23 Dose: 4 mg Documented By: AUBREY Sertraline HCl (Sertraline Hcl 25 Mg Tablet) 25 mg PO DAILY [facility] Sodium Chloride (0.9 % Sodium Chloride Flush 3 Ml Syringe) 3 ml IVFLUSH QSHIFT [facility] Last Admin: 09/09/23 09:06 Dose: Not Given Documented By: AUBREY Non-Admin Reason: Off unit: Dialysis Torsemide (Torsemide 20 Mg Tablet) 40 mg PO BID [facility]; Protocol Vitamin D (Cholecalciferol (Vitamin D3) 25 Mcg Tablet) 50 mcg PO DAILY [facility] Labs 09/09/23 03:35 09/09/23 03:35 Labs: Laboratory Results - last 24 hr 09/08/23 09/08/23 09/09/23 19:35 22:38 00:30 MCV 94.5 MCH 30.4 MCHC 32.2 RDW 15.3 Plt Count 138 L MPV 12.1 Immature Gran % (Auto) 0.4 Neut % (Auto) 76.2 H Lymph % (Auto) 11.5 L [place] % (Auto) 8.4 Eos % (Auto) 2.7 Baso % (Auto) 0.8 Lymph # (Auto) 0.6 L [place] # (Auto) 0.4 Eos # (Auto) 0.1 Baso # (Auto) 0.0 Abs Immat Gran (auto) 0.02 Absolute Neuts (auto) 3.6 Absolute Nucleated RBC 0.000 Nucleated RBC % (auto) 0.0 Hold Purple Top SEE NOTE VBG pH VBG pCO2 VBG pO2 VBG HCO3 VBG O2 Saturation VBG Base Excess Anion Gap 19 20 Estim Creat Clear Calc 8.0 7.9 Estimated GFR 4 4 POC Glucose Random Glucose 82 82 Calcium 7.6 L D 8.3 L D Total Bilirubin AST ALT Alkaline Phosphatase C-Reactive Protein 0.95 H Total Protein Albumin 09/09/23 09/09/23 09/09/23 00:31 02:05 03:35 MCV 93.8 MCH 30.2 MCHC 32.2 RDW 15.2 Plt Count 128 L MPV 12.3 Immature Gran % (Auto) 0.3 Neut % (Auto) 74.4 H Lymph % (Auto) 14.2 L [place] % (Auto) 8.0 Eos % (Auto) 2.3 Baso % (Auto) 0.8 Lymph # (Auto) 0.6 L [place] # (Auto) 0.3 Eos # (Auto) 0.1 Baso # (Auto) 0.0 Abs Immat Gran (auto) 0.01 Absolute Neuts (auto) 2.9 Absolute Nucleated RBC 0.000 Nucleated RBC % (auto) 0.0 Hold Purple Top VBG pH 7.26 L VBG pCO2 27 VBG pO2 51 VBG HCO3 12 L VBG O2 Saturation 74.0 VBG Base Excess -12.9 Anion Gap 19 Estim Creat Clear Calc 7.1 Estimated GFR 4 POC Glucose 78 Random Glucose 100 Calcium 8.6 Total Bilirubin 0.9 AST 17 ALT 11 Alkaline Phosphatase 129 H C-Reactive Protein Total Protein 7.5 Albumin 3.0 L 09/09/23 07:23 MCV MCH MCHC RDW Plt Count MPV Immature Gran % (Auto) Neut % (Auto) Lymph % (Auto) [place] % (Auto) Eos % (Auto) Baso % (Auto) Lymph # (Auto) [place] # (Auto) Eos # (Auto) Baso # (Auto) Abs Immat Gran (auto) Absolute Neuts (auto) Absolute Nucleated RBC Nucleated RBC % (auto) Hold Purple Top VBG pH VBG pCO2 VBG pO2 VBG HCO3 VBG O2 Saturation VBG Base Excess Anion Gap Estim Creat Clear Calc Estimated GFR POC Glucose 79 Random Glucose Calcium Total Bilirubin AST ALT Alkaline Phosphatase C-Reactive Protein Total Protein Albumin 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, peripheral arterial disease status post bilateral TMA, poorly controlled hypertension due to noncompliance with medications, chronic hypoxic respiratory failure on 4 L baseline supplemental oxygen, congestive heart failure with reduced ejection fraction, mood disorder, chronic pain with opioid seeking behavior, cardiomyopathy here with left 2nd toe ulcer and hyperkalemia Left 2nd toe necrosis empiric IV antibiotic therapy with doxycycline and Zosyn left foot x-ray no evidence of osteo had MRI left foot 08/27 - no evidence for osteo at that time Seen by General surgery - possible amputation likely to remove all remaining toes - see surgical note for details blood cultures pending Hyperkalemia associated with metabolic acidosis secondary to ESRD + noncompliance with hemodialysis. had dialysis 09/08 ERD on HD had HD 09/08, continue , , schedule Uncontrolled hypertension. Continue Coreg, Hydralazine Type 2 diabetes mellitus. Blood glucose check before meals at bedtime. Insulin sliding scale. Diabetic diet. Mood disorder. Continue sertraline. HFrEF Continue diuretics, carvedilol and hemodialysis. CAD. Continue aspirin, Imdur and carvedilol. Chronic pain with opiate seeking behavior. Avoid opiates if able Chronic anemia. Above transfusion threshold Continue to monitor. chronic b/l diabetic foot wounds Right and Left Foot - Cleanse and irrigate with NS, Pat dry. Apply cut to size Durafiber AG to wound bed , cover with dry gauze, ABD pad and gauze wrap. Change every other day. Off Load Pressure outpatient follow up in wound care clinic Code status: Full DVT prophylaxis: heparin Patient will need hospitalization for at least 2 midnights for left 2nd toe necrosis for empiric IV antibiotic therapy and evaluation by Surgical Service. Patient will also need urgent dialysis. Quality Stroke Does the patient have a stroke diagnosis?: No VTE Prior VTE?: No VTE Risk Level:: Medical - moderate - high VTE Device Contraindication: Treatment Not Indicated VTE Drug Contraindication: N/A - Med Ordered
[2023-09-09 12:13] LABS: Glucose, Whole Blood 129 mg/dL (60-115)
[2023-09-09] MEDS: levETIRAcetam 1,000 MG TABLET 1000 MG PO (12:40)
[2023-09-09] MEDS: Calcium Carbonate 750 MG TAB.CHEW 300 MG PO (17:00)
[2023-09-09 17:19] LABS: Glucose, Whole Blood 151 mg/dL (60-115)
[2023-09-09] MEDS: oxyCODONE HCl Immed Release 5 MG TABLET PO (17:40)
[2023-09-09] MEDS: Torsemide 20 MG TABLET 40 MG PO (19:59)
[2023-09-09] MEDS: carvediloL 12.5 MG TABLET PO (20:00)
[2023-09-09] MEDS: Mirtazapine 7.5 MG TABLET PO (20:00)
[2023-09-09 20:03] LABS: Glucose, Whole Blood 120 mg/dL (60-115)
[2023-09-10] MEDS: 0.9 % Sodium Chloride Flush 3 ML SYRINGE IVFLUSH (02:38)
[2023-09-10] MEDS: Piperacillin Sodium/Tazobactam 2.25 GM in 0.9 % Sodium Chloride 50 ML IV ×2 (02:46→11:17)
[2023-09-10] MEDS: Doxycycline Hyclate 100 MG in 0.9 % Sodium Chloride 250 ML 166.67 MG IV ×2 (03:29→15:08)
[2023-09-10 07:53] LABS: Glucose, Whole Blood 67 mg/dL (60-115)
[2023-09-10 08:00] VITALS: BP 152/92; PULSE 88; RESP 20; TEMP 36.6; O2SAT 100
--- NOTE | 2023-09-10 08:22 | PM.PNGS ---
Subjective Subjective Date of Service: 09/10/23 Interval history: Patient says she continues to have pain on the remaining toes on the left especially 3rd toe No events overnight Physical Exam Vital Signs: Vital Signs: Last Vital Signs Temp 97.9 F 09/10/23 08:00 Pulse 88 09/10/23 08:00 Resp 20 09/10/23 08:00 BP 152/92 H 09/10/23 08:00 Pulse Ox 100 09/10/23 08:00 O2 Del Method Room Air 09/10/23 08:00 BMI result Body Mass Index 22.6 Const: General: comfortable and no acute distress Resp: Effort & Inspection: normal respiratory effort and able to speak in complete sentences Cardio: Rate: regular rate GI: Palpation (GI): Soft to palpation, not firm and nontender Extrem: Other: Discoloratio of the 3rd toe on the left, tender to touch, no cellulitis or evidence of any ischemia of the skin on the rest of the foot Objective Data Active Medications Calcium Carbonate (Calcium Carbonate 750 Mg Tab.Chew) 300 mg PO TIDWM [facility] Last Admin: 09/09/23 17:00 Dose: 300 mg Documented By: BERNABE Carvedilol (Carvedilol 12.5 Mg Tablet) 12.5 mg PO BID [facility]; Protocol Last Admin: 09/09/23 20:00 Dose: 12.5 mg Documented By: BERNABE Diphenhydramine HCl (Diphenhydramine Hcl 25 Mg Capsule) 50 mg PO Q6H PRN PRN Reason: Itching Last Admin: 09/09/23 10:23 Dose: 50 mg Documented By: AUBREY Docusate Sodium (Docusate Sodium 100 Mg Capsule) 100 mg PO DAILY PRN PRN Reason: constipation Glucose (Glucose Gel 15 Gm Gel..Gram.) 15 gm PO Q15M PRN; Protocol PRN Reason: per Hypoglycemia Standing Ord. Hydralazine HCl (Hydralazine Hcl 50 Mg Tablet) 50 mg PO TID [facility]; Protocol Last Admin: 09/09/23 20:00 Dose: 50 mg Documented By: BERNABE Dextrose (D10) 250 mls @ 750 mls/hr IV Q15M PRN; Protocol PRN Reason: per Hypoglycemia Standing Ord. Piperacillin Sod/Tazobactam (Sod 2.25 gm/ Sodium Chloride) 50 mls @ 100 mls/hr IV Q8H [facility] Last Infusion: 09/10/23 03:32 Dose: Infused Documented By: JONATHAN Doxycycline Hyclate 100 mg/ (Sodium Chloride) 250 mls @ 166.67 mls/hr IV Q12H [facility] Last Infusion: 09/10/23 05:17 Dose: Infused Documented By: JONATHAN Insulin Human Lispro (Insulin Lispro 100 Unit/Ml 3 Ml Vial) 0 unit SUBCUT QIDACHS [facility]; Protocol Last Admin: 09/10/23 07:38 Dose: Not Given Documented By: MIKE Non-Admin Reason: No Insulin Coverage Isosorbide Mononitrate (Isosorbide Mononitrate 30 Mg Tab.Er.24h) 30 mg PO DAILY [facility]; Protocol Levetiracetam (Levetiracetam 1,000 Mg Tablet) 1,000 mg PO DAILY [facility] Last Admin: 09/09/23 12:40 Dose: 1,000 mg Documented By: BERNABE Mirtazapine (Mirtazapine 7.5 Mg Tablet) 7.5 mg PO BEDTIME [facility] Last Admin: 09/09/23 20:00 Dose: 7.5 mg Documented By: BERNABE Omeprazole (Omeprazole 20 Mg Capsule.Dr) 20 mg PO DAILY@0630 [facility] Last Admin: 09/10/23 05:18 Dose: Not Given Documented By: JONATHAN Non-Admin Reason: Patient Refused Ondansetron HCl (Ondansetron Hcl 4 Mg/2 Ml Vial) 4 mg IVPUSH Q4H PRN PRN Reason: Nausea and Vomiting Last Admin: 09/09/23 21:56 Dose: 4 mg Documented By: BERNABE Sertraline HCl (Sertraline Hcl 25 Mg Tablet) 25 mg PO DAILY [facility] Sodium Chloride (0.9 % Sodium Chloride Flush 3 Ml Syringe) 3 ml IVFLUSH QSHIFT [facility] Last Admin: 09/10/23 02:38 Dose: 3 ml Documented By: JONATHAN Torsemide (Torsemide 20 Mg Tablet) 40 mg PO BID [facility]; Protocol Last Admin: 09/09/23 19:59 Dose: 40 mg Documented By: BERNABE Vitamin D (Cholecalciferol (Vitamin D3) 25 Mcg Tablet) 50 mcg PO DAILY [facility] Labs 09/09/23 03:35 09/09/23 03:35 Labs: Laboratory Results - last 24 hr 09/09/23 09/09/23 09/09/23 12:10 17:14 19:53 POC Glucose 129 H 151 H 120 H 09/10/23 07:22 POC Glucose 67 Microbiology Microbiology Results: Microbiology 09/09/23 03:36 Blood Culture - Preliminary Blood - Venous No growth after 24 hours. 09/09/23 03:35 Blood Culture - Preliminary Blood - Venous No growth after 24 hours. Procedures Date of Service Date of Service: 09/10/23 Progress Note: A&P Assessment and plan (1) Toe necrosis: Status: Acute Assessment and Plan: She has persistent pain on the 2nd toe with discoloration suggestive of early dry necrosis with known peripheral vascular disease No discharge at this time She says that she has had chronic pain on this toe She wants to proceed with amputation I explained to her that it may be best to proceed with the amputation of the remaining 3 toes instead of just 1 toe I reviewed the risks including but not limited to bleeding, infections and poor healing and need for further surgical intervention in the future She says she wants to proceed Will try to schedule the amputation of the 3rd, 4th and 5th toes on the left tomorrow or Sunday Time Spent With Patient Time: Total time managing care of this patient today ____ minutes. Quality Stroke Does the patient have a stroke diagnosis?: No VTE Prior VTE?: No VTE Risk Level:: Medical - moderate - high VTE Device Contraindication: Treatment Not Indicated VTE Drug Contraindication: N/A - Med Ordered
--- NOTE | 2023-09-10 09:54 | MHC.CM.PN ---
IMM 09/10/23, to be sent to sister per pt.'s request due to pt. is vision impaired. Pt lives with her sister Josy, who is her [employer], she uses a W/C for mobility, and goes to [facility] in [place] for HD. HCP is on file and confirmed, her brother Michael. DCP: may recommend STR due to pt. to have toes amputated. CM to follow and assist with DC planning.
--- NOTE | 2023-09-10 10:12 | P.PNIM_ITS ---
Subjective Subjective Date of Service: 09/10/23 Interval History: Seen and examined this morning Follow-up for hyperkalemia, left 3rd toe ulcer Review of Systems Review of Systems: Yes all other systems are reviewed and are negative Constitutional Constitutional: Denies chills and Denies fever(s) Cardiovascular Cardiovascular: Denies chest pain and Denies dyspnea Respiratory Respiratory: Denies dyspnea Physical Exam 2 Vital Signs: Vital Signs: Last Vital Signs Temp 97.9 F 09/10/23 08:00 Pulse 88 09/10/23 08:00 Resp 20 09/10/23 08:00 BP 152/92 H 09/10/23 08:00 Pulse Ox 100 09/10/23 08:00 O2 Del Method Room Air 09/10/23 08:00 BMI result Body Mass Index 22.6 Appearing in no acute distress legally blid lung sounds are clear to auscultation heart regular rate rhythm, clear S1, S2 positive bowel sounds, abdomen is soft, nontender neuro patient is alert x3, no focal deficits Objective Data Active Medications Calcium Carbonate (Calcium Carbonate 750 Mg Tab.Chew) 300 mg PO TIDWM [facility] Last Admin: 09/10/23 10:01 Dose: Not Given Documented By: MIKE Non-Admin Reason: Patient Refused Carvedilol (Carvedilol 12.5 Mg Tablet) 12.5 mg PO BID [facility]; Protocol Last Admin: 09/10/23 10:01 Dose: Not Given Documented By: MIKE Non-Admin Reason: Patient Refused Diphenhydramine HCl (Diphenhydramine Hcl 25 Mg Capsule) 50 mg PO Q6H PRN PRN Reason: Itching Last Admin: 09/09/23 10:23 Dose: 50 mg Documented By: AUBREY Docusate Sodium (Docusate Sodium 100 Mg Capsule) 100 mg PO DAILY PRN PRN Reason: constipation Glucose (Glucose Gel 15 Gm Gel..Gram.) 15 gm PO Q15M PRN; Protocol PRN Reason: per Hypoglycemia Standing Ord. Hydralazine HCl (Hydralazine Hcl 50 Mg Tablet) 50 mg PO TID [facility]; Protocol Last Admin: 09/10/23 10:02 Dose: Not Given Documented By: MIKE Non-Admin Reason: Patient Refused Dextrose (D10) 250 mls @ 750 mls/hr IV Q15M PRN; Protocol PRN Reason: per Hypoglycemia Standing Ord. Piperacillin Sod/Tazobactam (Sod 2.25 gm/ Sodium Chloride) 50 mls @ 100 mls/hr IV Q8H [facility] Last Infusion: 09/10/23 03:32 Dose: Infused Documented By: JONATHAN Doxycycline Hyclate 100 mg/ (Sodium Chloride) 250 mls @ 166.67 mls/hr IV Q12H [facility] Last Infusion: 09/10/23 05:17 Dose: Infused Documented By: JONATHAN Insulin Human Lispro (Insulin Lispro 100 Unit/Ml 3 Ml Vial) 0 unit SUBCUT QIDACHS [facility]; Protocol Last Admin: 09/10/23 07:38 Dose: Not Given Documented By: MIKE Non-Admin Reason: No Insulin Coverage Isosorbide Mononitrate (Isosorbide Mononitrate 30 Mg Tab.Er.24h) 30 mg PO DAILY [facility]; Protocol Last Admin: 09/10/23 10:02 Dose: Not Given Documented By: MIKE Non-Admin Reason: Patient Refused Levetiracetam (Levetiracetam 1,000 Mg Tablet) 1,000 mg PO DAILY [facility] Last Admin: 09/10/23 10:03 Dose: Not Given Documented By: MIKE Non-Admin Reason: Patient Refused Mirtazapine (Mirtazapine 7.5 Mg Tablet) 7.5 mg PO BEDTIME [facility] Last Admin: 09/09/23 20:00 Dose: 7.5 mg Documented By: BERNABE Omeprazole (Omeprazole 20 Mg Capsule.) 20 mg PO DAILY@0630 [facility] Last Admin: 09/10/23 05:18 Dose: Not Given Documented By: JONATHAN Non-Admin Reason: Patient Refused Ondansetron HCl (Ondansetron Hcl 4 Mg/2 Ml Vial) 4 mg IVPUSH Q4H PRN PRN Reason: Nausea and Vomiting Last Admin: 09/09/23 21:56 Dose: 4 mg Documented By: BERNABE Sertraline HCl (Sertraline Hcl 25 Mg Tablet) 25 mg PO DAILY [facility] Last Admin: 09/10/23 10:03 Dose: Not Given Documented By: MIKE Non-Admin Reason: Patient Refused Sodium Chloride (0.9 % Sodium Chloride Flush 3 Ml Syringe) 3 ml IVFLUSH QSHIFT [facility] Last Admin: 09/10/23 10:01 Dose: Not Given Documented By: MIKE Non-Admin Reason: Patient Refused Torsemide (Torsemide 20 Mg Tablet) 40 mg PO BID [facility]; Protocol Last Admin: 09/10/23 10:03 Dose: Not Given Documented By: MIKE Non-Admin Reason: Patient Refused Vitamin D (Cholecalciferol (Vitamin D3) 25 Mcg Tablet) 50 mcg PO DAILY [facility] Last Admin: 09/10/23 10:02 Dose: Not Given Documented By: MIKE Non-Admin Reason: Patient Refused Labs 09/09/23 03:35 09/09/23 03:35 Labs: Laboratory Results - last 24 hr 09/09/23 09/09/23 09/09/23 12:10 17:14 19:53 POC Glucose 129 H 151 H 120 H 09/10/23 07:22 POC Glucose 67 Microbiology Microbiology Results: Microbiology 09/09/23 03:36 Blood Culture - Preliminary Blood - Venous No growth after 24 hours. 09/09/23 03:35 Blood Culture - Preliminary Blood - Venous No growth after 24 hours. 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, peripheral arterial disease status post bilateral TMA, poorly controlled hypertension due to noncompliance with medications, chronic hypoxic respiratory failure on 4 L baseline supplemental oxygen, congestive heart failure with reduced ejection fraction, mood disorder, chronic pain with opioid seeking behavior, cardiomyopathy here with left 2nd toe ulcer and hyperkalemia Left 2nd toe necrosis empiric IV antibiotic therapy with doxycycline and Zosyn left foot x-ray no evidence of osteo had MRI left foot 08/27 - no evidence for osteo at that time Seen by General surgery>possible amputation likely to remove all remaining toes this week blood cultures neg after 24 hrs Hyperkalemia associated with metabolic acidosis secondary to ESRD + noncompliance with hemodialysis. last dialysis 09/08 ERD on HD had HD 09/08, continue , , schedule Uncontrolled hypertension. Continue Coreg, Hydralazine Type 2 diabetes mellitus. Blood glucose check before meals at bedtime. Insulin sliding scale. Diabetic diet. Mood disorder. Continue sertraline. HFrEF Continue diuretics, carvedilol and hemodialysis. CAD. Continue aspirin, Imdur and carvedilol. Chronic pain with opiate seeking behavior. Avoid opiates if able Chronic anemia. Above transfusion threshold Continue to monitor. Code status: Full DVT prophylaxis: heparin attending Dr. Weeks Refused labs today Patient will need hospitalization for at least 2 midnights for left 2nd toe necrosis for empiric IV antibiotic therapy and evaluation by Surgical Service. Patient will also need urgent dialysis. Quality Stroke Does the patient have a stroke diagnosis?: No VTE Prior VTE?: No VTE Risk Level:: Medical - moderate - high VTE Device Contraindication: Treatment Not Indicated VTE Drug Contraindication: N/A - Med Ordered
[2023-09-10 11:18] LABS: Glucose, Whole Blood 85 mg/dL (60-115)
[2023-09-10 11:26] VITALS: BP 159/88; PULSE 78; RESP 20; TEMP 36.2; O2SAT 96
[2023-09-10 15:43] VITALS: BP 157/93; PULSE 80; RESP 18; TEMP 36.2; O2SAT 97
[2023-09-10 16:30] LABS: Glucose, Whole Blood 97 mg/dL (60-115)
--- NOTE | 2023-09-10 16:33 | P.CDIM_ITS ---
PROVIDER RESPONSE TEXT: To clarify, the appropriate diagnosis supported by the clinical indicators: Acute QUERY TEXT: PHYSICIAN'S DOCUMENTATION REQUEST Date of Query: 09/10/2023 10:52 AM EDT Patient Name: Shereen Taylor Admit Date: 09/09/2023 Dear Tawny Taylor, A review of the medical record indicates additional documentation may be needed. Please review below and update the documentation accordingly. Clinical Indicators: Progress note: 09/09 - Hyperkalemia associated with metabolic acidosis secondary to ESRD + noncomplian ce with hemodialysis. Clarify which of the following accurately represents the acuity of the metabolic acidosis: Possible options might include: Acute Chronic Other (explain) Clinically unable to determine (explain) Thank you, Betsey Metz, CCS, CDIS Use of terms such as suspected, likely, concern for, or probable (associated with a specific diagnosi s that is being evaluated, monitored, or treated as if it exists) are acceptable and can be coded in the inpatient se tting, when documented at the time of discharge. Please use your independent medical judgment in providing your response. THIS QUERY IS PART OF THE PERMANENT MEDICAL RECORD
--- NOTE | 2023-09-10 17:27 | PC.NURSE ---
Pt is refusing all medication. Education provided, Provider is aware. All other needs are met at this time, call moore within pt reach.
[2023-09-10 20:00] VITALS: BP 174/103; PULSE 82; RESP 20; TEMP 36.1; O2SAT 99
[2023-09-10] MEDS: oxyCODONE HCl Immed Release 5 MG TABLET 10 MG PO (21:04)
[2023-09-10 21:06] LABS: Glucose, Whole Blood 164 mg/dL (60-115)
--- NOTE | 2023-09-10 21:42 | P.PNNP_ITS ---
Subjective Subjective Date of Service: 09/10/23 Interval history: Seen and examined, events noted Physical Exam 2 Vital Signs: Vital Signs: Last Vital Signs Temp 97.0 F 09/10/23 20:00 Pulse 82 09/10/23 20:00 Resp 20 09/10/23 20:00 BP 174/103 H 09/10/23 20:00 Pulse Ox 99 09/10/23 20:00 O2 Del Method Room Air 09/10/23 20:00 BMI result Body Mass Index 22.6 Const: Other: Undergoing hemodialysis General: cooperative, comfortable, no acute distress, alert and awake N utritional Appearance: average body habitus Orientation/consciousness: p atient oriented x3 Resp: Effort & Inspection: normal respiratory effort, able to speak in complete sentences, no respiratory distress and no use of accessory muscles Cardio: Rate: regular rate GI: Inspection: No distended Palpation (GI): Soft to palpation, not firm and nontender Neuro: General: patient oriented x3, moves all extremities and CN's II-XI intact bilaterally Extrem: Other: Discoloratio of the 3rd toe on the left, tender to touch, no cellulitis or evidence of any ischemia of the skin on the rest of the foot General: Yes no pedal edema Objective Data Labs 09/09/23 03:35 09/09/23 03:35 Labs: Laboratory Results - last 24 hr 09/10/23 09/10/23 09/10/23 07:22 11:05 16:26 POC Glucose 67 85 97 09/10/23 20:56 POC Glucose 164 H Microbiology Microbiology Results: Microbiology 09/09/23 03:36 Blood - Venous Blood Culture - Preliminary No growth after 24 hours. 09/09/23 03:35 Blood - Venous Blood Culture - Preliminary No growth after 24 hours. Procedures Date of Service Date of Service: 09/10/23 Assessment & Plan Assessment and plan (1) Diabetic foot infection: Status: Acute Plan ESRD: TTS Infected Toe: surg 09/10 AGMA/NAGMA -- need to r/o DKA, lactic acidosis Anemia REC: repeat labs tonight and check lac and ketones; HD in am will follow clsoely with team Time Spent With Patient Time: Total time managing care of this patient today ____ minutes. Progress Note: Quality Stroke Does the patient have a stroke diagnosis?: No
[2023-09-11] VITALS (10 sets, daily range): BP systolic 155–188; BP diastolic 79–108; PULSE 74–93; RESP 15–20; TEMP 36.1–36.6; O2SAT 94–100
--- NOTE | 2023-09-11 05:23 | PC.NURSE ---
Pt AOx3, she refused all meds except for her PRN pain med (see MAR for administration). She is also refusing care and lab work. Hospitalist notified. Call moore within reach. Bed alarm on.
[2023-09-11 07:02] LABS: Glucose, Whole Blood 68 mg/dL (60-115)
[2023-09-11] MEDS: 0.9 % Sodium Chloride Flush 3 ML SYRINGE IVFLUSH ×3 (08:09→20:21)
[2023-09-11] MEDS: oxyCODONE HCl Immed Release 5 MG TABLET 10 MG PO (08:09)
[2023-09-11] MEDS: Dextrose 10 % 250 ML 750 ML IV ×2 (08:37→12:25)
[2023-09-11 09:26] LABS: Glucose, Whole Blood 124 mg/dL (60-115)
[2023-09-11] MEDS: diphenhydrAMINE HCL 25 MG CAPSULE 50 MG PO ×2 (09:28→20:17)
--- NOTE | 2023-09-11 09:50 | P.PNIM_ITS ---
Subjective Subjective Date of Service: 09/11/23 Interval History: Seen and examined this morning Follow-up for hyperkalemia, left 3rd toe ulcer Review of Systems Review of Systems: Yes all other systems are reviewed and are negative Constitutional Constitutional: Denies chills and Denies fever(s) Cardiovascular Cardiovascular: Denies chest pain and Denies dyspnea Respiratory Respiratory: Denies dyspnea Physical Exam 2 Vital Signs: Vital Signs: Last Vital Signs Temp 96.9 F 09/11/23 00:00 Pulse 82 09/11/23 00:00 Resp 20 09/11/23 00:00 BP 155/79 H 09/11/23 00:00 Pulse Ox 96 09/11/23 00:00 O2 Del Method Room Air 09/11/23 00:00 BMI result Body Mass Index 22.6 Appearing in no acute distress lung sounds are clear to auscultation heart regular rate rhythm, clear S1, S2 positive bowel sounds, abdomen is soft, nontender neuro patient is alert x3, no focal deficits Objective Data Active Medications Calcium Carbonate (Calcium Carbonate 750 Mg Tab.Chew) 300 mg PO TIDWM [facility] Last Admin: 09/11/23 08:11 Dose: Not Given Documented By: KARLI Non-Admin Reason: NPO Carvedilol (Carvedilol 12.5 Mg Tablet) 12.5 mg PO BID [facility]; Protocol Last Admin: 09/11/23 08:11 Dose: Not Given Documented By: KARLI Non-Admin Reason: NPO Diphenhydramine HCl (Diphenhydramine Hcl 25 Mg Capsule) 50 mg PO Q6H PRN PRN Reason: Itching Last Admin: 09/11/23 09:28 Dose: 50 mg Documented By: KARLI Docusate Sodium (Docusate Sodium 100 Mg Capsule) 100 mg PO DAILY PRN PRN Reason: constipation Glucose (Glucose Gel 15 Gm Gel..Gram.) 15 gm PO Q15M PRN; Protocol PRN Reason: per Hypoglycemia Standing Ord. Hydralazine HCl (Hydralazine Hcl 50 Mg Tablet) 50 mg PO TID [facility]; Protocol Last Admin: 09/11/23 08:11 Dose: Not Given Documented By: KARLI Non-Admin Reason: NPO Dextrose (D10) 250 mls @ 750 mls/hr IV Q15M PRN; Protocol PRN Reason: per Hypoglycemia Standing Ord. Last Infusion: 09/11/23 09:47 Dose: Infused Documented By: KARLI Piperacillin Sod/Tazobactam (Sod 2.25 gm/ Sodium Chloride) 50 mls @ 100 mls/hr IV Q8H [facility] Last Admin: 09/11/23 01:13 Dose: Not Given Documented By: TIFFANIE Non-Admin Reason: Patient Refused Doxycycline Hyclate 100 mg/ (Sodium Chloride) 250 mls @ 166.67 mls/hr IV Q12H [facility] Last Admin: 09/11/23 02:00 Dose: Not Given Documented By: TIFFANIE Non-Admin Reason: Patient Refused Insulin Human Lispro (Insulin Lispro 100 Unit/Ml 3 Ml Vial) 0 unit SUBCUT QIDACHS [facility]; Protocol Last Admin: 09/11/23 07:39 Dose: Not Given Documented By: KARLI Non-Admin Reason: No Insulin Coverage Isosorbide Mononitrate (Isosorbide Mononitrate 30 Mg Tab.Er.24h) 30 mg PO DAILY [facility]; Protocol Last Admin: 09/11/23 08:11 Dose: Not Given Documented By: KARLI Non-Admin Reason: NPO Levetiracetam (Levetiracetam 1,000 Mg Tablet) 1,000 mg PO DAILY [facility] Last Admin: 09/11/23 08:11 Dose: Not Given Documented By: KARLI Non-Admin Reason: NPO Mirtazapine (Mirtazapine 7.5 Mg Tablet) 7.5 mg PO BEDTIME [facility] Last Admin: 09/10/23 22:06 Dose: Not Given Documented By: TIFFANIE Non-Admin Reason: Patient Refused Omeprazole (Omeprazole 20 Mg Capsule.Dr) 20 mg PO DAILY@0630 [facility] Last Admin: 09/11/23 05:23 Dose: Not Given Documented By: TIFFANIE Non-Admin Reason: NPO Ondansetron HCl (Ondansetron Hcl 4 Mg/2 Ml Vial) 4 mg IVPUSH Q4H PRN PRN Reason: Nausea and Vomiting Last Admin: 09/09/23 21:56 Dose: 4 mg Documented By: BERNABE Oxycodone HCl (Oxycodone Hcl Immed Release 5 Mg Tablet) 10 mg PO Q4H PRN PRN Reason: Pain, Severe (Pain Scale 7-10) Last Admin: 09/11/23 08:09 Dose: 10 mg Documented By: KARLI Sertraline HCl (Sertraline Hcl 25 Mg Tablet) 25 mg PO DAILY [facility] Last Admin: 09/11/23 08:12 Dose: Not Given Documented By: KARLI Non-Admin Reason: NPO Sodium Chloride (0.9 % Sodium Chloride Flush 3 Ml Syringe) 3 ml IVFLUSH QSHIFT [facility] Last Admin: 09/11/23 08:09 Dose: 3 ml Documented By: KARIL Torsemide (Torsemide 20 Mg Tablet) 40 mg PO BID [facility]; Protocol Last Admin: 09/11/23 08:12 Dose: Not Given Documented By: KARLI Non-Admin Reason: NPO Vitamin D (Cholecalciferol (Vitamin D3) 25 Mcg Tablet) 50 mcg PO DAILY [facility] Last Admin: 09/11/23 08:11 Dose: Not Given Documented By: KARLI Non-Admin Reason: NPO Labs 09/09/23 03:35 09/09/23 03:35 Labs: Laboratory Results - last 24 hr 09/10/23 09/10/23 09/10/23 11:05 16:26 20:56 POC Glucose 85 97 164 H 09/11/23 09/11/23 06:58 09:16 POC Glucose 68 124 H Microbiology Microbiology Results: Microbiology 09/09/23 03:36 Blood Culture - Preliminary Blood - Venous No growth after 48 hours. 09/09/23 03:35 Blood Culture - Preliminary Blood - Venous No growth after 48 hours. 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, peripheral arterial disease status post bilateral TMA, poorly controlled hypertension due to noncompliance with medications, chronic hypoxic respiratory failure on 4 L baseline supplemental oxygen, congestive heart failure with reduced ejection fraction, mood disorder, chronic pain with opioid seeking behavior, cardiomyopathy here with left 2nd toe ulcer and hyperkalemia Left 2nd toe necrosis empiric IV antibiotic therapy with doxycycline and Zosyn (has been refusing) left foot x-ray no evidence of osteo with recent MRI also neg Seen by General surgery>plan for amp of remaining 3 toes blood cultures neg after 48 hrs Hyperkalemia associated with metabolic acidosis secondary to ESRD + noncompliance with hemodialysis. last dialysis 09/10 pt refusing labs ESRD on HD continue , , schedule Uncontrolled hypertension. Continue Coreg, Hydralazine Type 2 diabetes mellitus. Blood glucose check before meals at bedtime. Insulin sliding scale. Diabetic diet. Mood disorder. Continue sertraline. HFrEF Continue diuretics, carvedilol and hemodialysis. CAD. Continue aspirin, Imdur and carvedilol. Chronic pain with opiate seeking behavior. Avoid opiates if able Chronic anemia. Above transfusion threshold Continue to monitor. Code status: Full DVT prophylaxis: heparin attending Dr. Weeks ocassionally refusing labs and medications Patient will need hospitalization for at least 2 midnights for left 2nd toe necrosis for empiric IV antibiotic therapy and evaluation by Surgical Service. Patient will also need urgent dialysis. Quality Stroke Does the patient have a stroke diagnosis?: No VTE Prior VTE?: No VTE Risk Level:: Medical - moderate - high VTE Device Contraindication: Treatment Not Indicated VTE Drug Contraindication: N/A - Med Ordered
--- NOTE | 2023-09-11 11:54 | P.PNNP_ITS ---
Subjective Subjective Date of Service: 09/11/23 Interval history: Seen and examined on HD no complaints Physical Exam 2 Vital Signs: Vital Signs: Last Vital Signs Temp 96.9 F 09/11/23 00:00 Pulse 82 09/11/23 00:00 Resp 20 09/11/23 00:00 BP 155/79 H 09/11/23 00:00 Pulse Ox 96 09/11/23 00:00 O2 Del Method Room Air 09/11/23 00:00 BMI result Body Mass Index 22.6 Const: General: alert and awake HEENT: Head: Yes normocephalic and Yes atraumatic Neck: Neck: Yes supple Resp: Auscultation: clear to auscultation bilaterally Cardio: Heart sounds: S1 normal heart sound present and S2 normal heart sound present GI: Palpation (GI): Soft to palpation and nontender Objective Data Labs 09/09/23 03:35 09/09/23 03:35 Labs: Laboratory Results - last 24 hr 09/10/23 09/10/23 09/11/23 16:26 20:56 06:58 POC Glucose 97 164 H 68 09/11/23 09:16 POC Glucose 124 H Microbiology Microbiology Results: Microbiology 09/09/23 03:36 Blood - Venous Blood Culture - Preliminary No growth after 48 hours. 09/09/23 03:35 Blood - Venous Blood Culture - Preliminary No growth after 48 hours. Procedures Date of Service Date of Service: 09/11/23 Assessment & Plan Assessment and plan (1) ESRD (end stage renal disease): Status: Acute (2) Hyperkalemia: Status: Acute Plan HD today optimize volume status VIPUL P binders renal diet Time Spent With Patient Time: Total time managing care of this patient today ____ minutes. Progress Note: Quality Stroke Does the patient have a stroke diagnosis?: No
[2023-09-11 12:02] LABS: HCG Quantitative < 2 mIU/mL
[2023-09-11 12:11] LABS: Glucose, Whole Blood 65 mg/dL (60-115)
[2023-09-11 13:01] LABS: Glucose, Whole Blood 161 mg/dL (60-115)
--- NOTE | 2023-09-11 13:36 | MHC.SHP ---
Pre-Procedural Eval Section A - 24 Hr Update-Section A only Date of Service: 09/11/23 The patient is an INPATIENT: Yes Changes since office visit: No Cold of Flu in the past 2 weeks, No New Medical Problems, No Changes in Medication and No Patient answered all questions The patient has been examined within 24 hours of the surgical procedure. The History & Physical has been completed within 30 days and I have reviewed it.: Yes Section B - Complete if H&P > 30 days Chief Complaint: Hyperkalemia Allergies: Allergies Allergy/AdvReac Type Severity Reaction Status Date / Time morphine [MORPHINE] Allergy Intermediate Itching Verified 09/08/23 18:50 azithromycin [From Zithromax] Allergy Hives Verified 09/08/23 18:50 gabapentin Allergy Facial Verified 09/08/23 18:50 Swelling tramadol Allergy Facial Verified 09/08/23 18:50 Swelling vancomycin Allergy Anaphylaxis Verified 09/08/23 18:50 Plan I have reviewed the history and physical and performed a pertinent physical examination on my patient. No changes have occurred unless specified. Time Spent With Patient Time: Total time managing care of this patient today ____ minutes.
--- NOTE | 2023-09-11 13:48 | HO.ANESPROP2 ---
HPI - Anesthesia Eval Consult details Narrative: 33 yo female patient for Left 3rd, 4th and 5th toe Amputations. Patient with ESRD. On dialysis. Last this morning. Patient has been refusing medications so has not had antibiotics, antihypertensives or anti-seizure medication. BP 182/97 Patient also refused labs. Will attempt to get stat labs PMF Active Problems Active Problems: All Active Problems (Updated 09/11/23 @ 14:09 by Du CARLSON) Hyperkalemia (Acute) ESRD (end stage renal disease) (Acute) Metabolic acidosis (Acute) Toe necrosis (Acute) Ulcer of left second toe (Acute) Acute hyperkalemia (Acute) Diabetic foot infection (Acute) Opioid dependence (Acute) Renal failure (Acute) PAD (peripheral artery disease) (Acute) Chronic ulcer of left foot due to diabetes mellitus (Acute) Cerebral infarction (Acute) Hyponatremia (Acute) Prolonged QT interval (Acute) Pericarditis (Acute) Unspecified hypertension, condition or complication (Acute) Past Medical History Medical History (Updated 09/11/23 @ 14:16 by Janelle Tellez MD) ESRD (end stage renal disease) Hyperkalemia Metabolic acidosis Renal failure Major depressive disorder, single episode, severe Non-compliance with renal dialysis Hypertensive urgency MDD (major depressive disorder) Hypertension Anemia MDD (major depressive disorder), recurrent episode End-stage renal disease (ESRD) Foot ulcer CKD (chronic kidney disease) Hypertension Diabetic foot Vomiting Renal failure Hypertension HFrEF (heart failure with reduced ejection fraction) ESRD on dialysis Migraine Diabetic foot ulcer associated with type 2 diabetes mellitus Chronic pain Gastroparesis Non-compliance with renal dialysis Hypertensive emergency Diabetes ESRD needing dialysis Cardiomyopathy delivery delivered Anemia in chronic kidney disease (CKD) CKD (chronic kidney disease) Headache, migraine Abnormal finding on echocardiogram Elevated troponin Chest pain Acute worsening of stage 3 chronic kidney disease Generalized edema Sepsis Cellulitis Pleural effusion CHF (congestive heart failure) (~06/07/22) Tachycardia Atypical chest pain Bone infection PAD (peripheral artery disease) Severe anemia Cellulitis and abscess of foot DM foot ulcer Osteomyelitis Asthma Depression with anxiety Diabetic retinopathy Type 2 diabetes mellitus with hyperglycemia, with long-term current use of insulin Blind right eye Diabetes Back pain Family History Family History Mother Coronary artery disease Myocardial infarction Stroke Diabetes mellitus Father Myocardial infarction Family history of problems with anesthesia: No Surgical History Surgical History 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 History of Problems with Anesthesia: No Social History Social History Household Members: Family Household Members Other:: sister Housing: Apartment Do you presently have visiting nurse or other home services: No Unable to assess alcohol history related to: Unknown Alcohol intake: never 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 Patient Tobacco Use Status: Never used Tobacco e-Cigarette/Vaping Use: Never Used Second Hand Smoke Exposure: No Advance Directives Date on File: 03/08/20 service: No Current occupational status: unemployed and disabled Gender identity: Female Meds Allergies Allergy/AdvReac Type Severity Reaction Status Date / Time morphine [MORPHINE] Allergy Intermediate Itching Verified 09/08/23 18:50 azithromycin [From Zithromax] Allergy Hives Verified 09/08/23 18:50 gabapentin Allergy Facial Verified 09/08/23 18:50 Swelling tramadol Allergy Facial Verified 09/08/23 18:50 Swelling vancomycin Allergy Anaphylaxis Verified 09/08/23 18:50 Active Medications: Current Medications Calcium Carbonate (Calcium Carbonate 750 Mg Tab.Chew) 300 mg PO TIDWM [facility] Last Admin: 09/11/23 12:29 Dose: Not Given Carvedilol (Carvedilol 12.5 Mg Tablet) 12.5 mg PO BID [facility]; Protocol Last Admin: 09/11/23 08:11 Dose: Not Given Diphenhydramine HCl (Diphenhydramine Hcl 25 Mg Capsule) 50 mg PO Q6H PRN PRN Reason: Itching Last Admin: 09/11/23 09:28 Dose: 50 mg Docusate Sodium (Docusate Sodium 100 Mg Capsule) 100 mg PO DAILY PRN PRN Reason: constipation Glucose (Glucose Gel 15 Gm Gel..Gram.) 15 gm PO Q15M PRN; Protocol PRN Reason: per Hypoglycemia Standing Ord. Hydralazine HCl (Hydralazine Hcl 50 Mg Tablet) 50 mg PO TID [facility]; Protocol Last Admin: 09/11/23 08:11 Dose: Not Given Dextrose (D10) 250 mls @ 750 mls/hr IV Q15M PRN; Protocol PRN Reason: per Hypoglycemia Standing Ord. Last Infusion: 09/11/23 13:04 Dose: Infused Piperacillin Sod/Tazobactam (Sod 2.25 gm/ Sodium Chloride) 50 mls @ 100 mls/hr IV Q8H [facility] Last Admin: 09/11/23 11:36 Dose: Not Given Doxycycline Hyclate 100 mg/ (Sodium Chloride) 250 mls @ 166.67 mls/hr IV Q12H [facility] Last Admin: 09/11/23 02:00 Dose: Not Given Insulin Human Lispro (Insulin Lispro 100 Unit/Ml 3 Ml Vial) 0 unit SUBCUT QIDACHS [facility]; Protocol Last Admin: 09/11/23 12:29 Dose: Not Given Isosorbide Mononitrate (Isosorbide Mononitrate 30 Mg Tab.Er.24h) 30 mg PO DAILY [facility]; Protocol Last Admin: 09/11/23 08:11 Dose: Not Given Levetiracetam (Levetiracetam 1,000 Mg Tablet) 1,000 mg PO DAILY [facility] Last Admin: 09/11/23 08:11 Dose: Not Given Mirtazapine (Mirtazapine 7.5 Mg Tablet) 7.5 mg PO BEDTIME [facility] Last Admin: 09/10/23 22:06 Dose: Not Given Omeprazole (Omeprazole 20 Mg Capsule.Dr) 20 mg PO DAILY@0630 [facility] Last Admin: 09/11/23 05:23 Dose: Not Given Ondansetron HCl (Ondansetron Hcl 4 Mg/2 Ml Vial) 4 mg IVPUSH Q4H PRN PRN Reason: Nausea and Vomiting Last Admin: 09/09/23 21:56 Dose: 4 mg Oxycodone HCl (Oxycodone Hcl Immed Release 5 Mg Tablet) 10 mg PO Q4H PRN PRN Reason: Pain, Severe (Pain Scale 7-10) Last Admin: 09/11/23 08:09 Dose: 10 mg Sertraline HCl (Sertraline Hcl 25 Mg Tablet) 25 mg PO DAILY [facility] Last Admin: 09/11/23 08:12 Dose: Not Given Sodium Chloride (0.9 % Sodium Chloride Flush 3 Ml Syringe) 3 ml IVFLUSH QSHIFT [facility] Last Admin: 09/11/23 08:09 Dose: 3 ml Torsemide (Torsemide 20 Mg Tablet) 40 mg PO BID [facility]; Protocol Last Admin: 09/11/23 08:12 Dose: Not Given Vitamin D (Cholecalciferol (Vitamin D3) 25 Mcg Tablet) 50 mcg PO DAILY [facility] Last Admin: 09/11/23 08:11 Dose: Not Given Home Medications ?Medication ?Instructions ?Recorded ?Confirmed ?Last Taken ?Type carvedilol 12.5 mg tablet 12.5 mg PO BID 06/05/23 09/09/23 06/16/23 History docusate sodium 100 mg capsule 100 mg PO DAILY PRN constipation 06/05/23 09/09/23 Unknown History isosorbide mononitrate 30 mg 30 mg PO DAILY 06/05/23 09/09/23 06/16/23 History tablet,extended release 24 hr torsemide 20 mg tablet 40 mg PO BID 06/05/23 09/09/23 06/16/23 History levetiracetam 1,000 mg tablet 1,000 mg PO DAILY 06/17/23 09/09/23 06/16/23 History oxycodone 5 mg tablet 5 mg PO TID PRN Pain 06/17/23 09/09/23 Unknown History calcium carbonate (Calcium Antacid) 1 tab PO TIDWM 08/28/23 09/09/23 Unknown History cholecalciferol (vitamin D3) 50 50 mcg PO DAILY 08/28/23 09/09/23 Unknown History mcg (2,000 unit) capsule omeprazole 20 mg capsule,delayed 20 mg PO DAILY@0630 08/28/23 09/09/23 Unknown History release Exam Height,Weight and Vital Signs: Height 5 ft 6 in Weight 63.503 kg Last Vital Signs Temp 97.4 F 09/11/23 13:08 Pulse 93 09/11/23 13:08 Resp 16 09/11/23 13:08 BP 182/97 H 09/11/23 13:08 Pulse Ox 98 09/11/23 13:08 O2 Del Method Room Air 09/11/23 13:08 Pertinent Lab Results Pertinent Lab Results: Laboratory Tests 09/08/23 09/08/23 09/09/23 19:35 22:38 00:30 WBC 4.8 RBC 3.09 L Hgb 9.4 L Hct 29.2 L MCV 94.5 MCH 30.4 MCHC 32.2 RDW 15.3 Plt Count 138 L MPV 12.1 Immature Gran % (Auto) 0.4 Neut % (Auto) 76.2 H Lymph % (Auto) 11.5 L Lucas % (Auto) 8.4 Eos % (Auto) 2.7 Baso % (Auto) 0.8 Lymph # (Auto) 0.6 L Lucas # (Auto) 0.4 Eos # (Auto) 0.1 Baso # (Auto) 0.0 Abs Immat Gran (auto) 0.02 Absolute Neuts (auto) 3.6 Absolute Nucleated RBC 0.000 Nucleated RBC % (auto) 0.0 Hold Purple Top SEE NOTE VBG pH VBG pCO2 VBG pO2 VBG HCO3 VBG O2 Saturation VBG Base Excess Sodium 135 137 Potassium 6.5 H* D 5.5 H Chloride 111 H 109 H Carbon Dioxide 12 L 14 L Anion Gap 19 20 BUN 96 H 97 H Creatinine 10.67 H* 10.74 H* Estim Creat Clear Calc 8.0 7.9 Estimated GFR 4 4 POC Glucose Random Glucose 82 82 Calcium 7.6 L D 8.3 L D Total Bilirubin AST ALT Alkaline Phosphatase C-Reactive Protein 0.95 H Total Protein Albumin Beta HCG, Quant 09/09/23 09/09/23 09/09/23 00:31 02:05 03:35 WBC 3.9 L RBC 2.91 L Hgb 8.8 L Hct 27.3 L MCV 93.8 MCH 30.2 MCHC 32.2 RDW 15.2 Plt Count 128 L MPV 12.3 Immature Gran % (Auto) 0.3 Neut % (Auto) 74.4 H Lymph % (Auto) 14.2 L Lucas % (Auto) 8.0 Eos % (Auto) 2.3 Baso % (Auto) 0.8 Lymph # (Auto) 0.6 L Lucas # (Auto) 0.3 Eos # (Auto) 0.1 Baso # (Auto) 0.0 Abs Immat Gran (auto) 0.01 Absolute Neuts (auto) 2.9 Absolute Nucleated RBC 0.000 Nucleated RBC % (auto) 0.0 Hold Purple Top VBG pH 7.26 L VBG pCO2 27 VBG pO2 51 VBG HCO3 12 L VBG O2 Saturation 74.0 VBG Base Excess -12.9 Sodium 133 L Potassium 5.3 H Chloride 107 Carbon Dioxide 12 L Anion Gap 19 BUN 96 H Creatinine 10.33 H* Estim Creat Clear Calc 7.1 Estimated GFR 4 POC Glucose 78 Random Glucose 100 Calcium 8.6 Total Bilirubin 0.9 AST 17 ALT 11 Alkaline Phosphatase 129 H C-Reactive Protein Total Protein 7.5 Albumin 3.0 L Beta HCG, Quant 09/09/23 09/09/23 09/09/23 07:23 12:10 17:14 WBC RBC Hgb Hct MCV MCH MCHC RDW Plt Count MPV Immature Gran % (Auto) Neut % (Auto) Lymph % (Auto) Lucas % (Auto) Eos % (Auto) Baso % (Auto) Lymph # (Auto) Lucas # (Auto) Eos # (Auto) Baso # (Auto) Abs Immat Gran (auto) Absolute Neuts (auto) Absolute Nucleated RBC Nucleated RBC % (auto) Hold Purple Top VBG pH VBG pCO2 VBG pO2 VBG HCO3 VBG O2 Saturation VBG Base Excess Sodium Potassium Chloride Carbon Dioxide Anion Gap BUN Creatinine Estim Creat Clear Calc Estimated GFR POC Glucose 79 129 H 151 H Random Glucose Calcium Total Bilirubin AST ALT Alkaline Phosphatase C-Reactive Protein Total Protein Albumin Beta HCG, Quant 09/09/23 09/10/23 09/10/23 19:53 07:22 11:05 WBC RBC Hgb Hct MCV MCH MCHC RDW Plt Count MPV Immature Gran % (Auto) Neut % (Auto) Lymph % (Auto) Lucas % (Auto) Eos % (Auto) Baso % (Auto) Lymph # (Auto) Lucas # (Auto) Eos # (Auto) Baso # (Auto) Abs Immat Gran (auto) Absolute Neuts (auto) Absolute Nucleated RBC Nucleated RBC % (auto) Hold Purple Top VBG pH VBG pCO2 VBG pO2 VBG HCO3 VBG O2 Saturation VBG Base Excess Sodium Potassium Chloride Carbon Dioxide Anion Gap BUN Creatinine Estim Creat Clear Calc Estimated GFR POC Glucose 120 H 67 85 Random Glucose Calcium Total Bilirubin AST ALT Alkaline Phosphatase C-Reactive Protein Total Protein Albumin Beta HCG, Quant 09/10/23 09/10/23 09/11/23 16:26 20:56 06:58 WBC RBC Hgb Hct MCV MCH MCHC RDW Plt Count MPV Immature Gran % (Auto) Neut % (Auto) Lymph % (Auto) Lucas % (Auto) Eos % (Auto) Baso % (Auto) Lymph # (Auto) Lucas # (Auto) Eos # (Auto) Baso # (Auto) Abs Immat Gran (auto) Absolute Neuts (auto) Absolute Nucleated RBC Nucleated RBC % (auto) Hold Purple Top VBG pH VBG pCO2 VBG pO2 VBG HCO3 VBG O2 Saturation VBG Base Excess Sodium Potassium Chloride Carbon Dioxide Anion Gap BUN Creatinine Estim Creat Clear Calc Estimated GFR POC Glucose 97 164 H 68 Random Glucose Calcium Total Bilirubin AST ALT Alkaline Phosphatase C-Reactive Protein Total Protein Albumin Beta HCG, Quant 09/11/23 09/11/23 09/11/23 09:16 10:03 12:07 WBC RBC Hgb Hct MCV MCH MCHC RDW Plt Count MPV Immature Gran % (Auto) Neut % (Auto) Lymph % (Auto) Lucas % (Auto) Eos % (Auto) Baso % (Auto) Lymph # (Auto) Lucas # (Auto) Eos # (Auto) Baso # (Auto) Abs Immat Gran (auto) Absolute Neuts (auto) Absolute Nucleated RBC Nucleated RBC % (auto) Hold Purple Top VBG pH VBG pCO2 VBG pO2 VBG HCO3 VBG O2 Saturation VBG Base Excess Sodium Potassium Chloride Carbon Dioxide Anion Gap BUN Creatinine Estim Creat Clear Calc Estimated GFR POC Glucose 124 H 65 Random Glucose Calcium Total Bilirubin AST ALT Alkaline Phosphatase C-Reactive Protein Total Protein Albumin Beta HCG, Quant < 2 09/11/23 12:57 WBC RBC Hgb Hct MCV MCH MCHC RDW Plt Count MPV Immature Gran % (Auto) Neut % (Auto) Lymph % (Auto) Lucas % (Auto) Eos % (Auto) Baso % (Auto) Lymph # (Auto) Lucas # (Auto) Eos # (Auto) Baso # (Auto) Abs Immat Gran (auto) Absolute Neuts (auto) Absolute Nucleated RBC Nucleated RBC % (auto) Hold Purple Top VBG pH VBG pCO2 VBG pO2 VBG HCO3 VBG O2 Saturation VBG Base Excess Sodium Potassium Chloride Carbon Dioxide Anion Gap BUN Creatinine Estim Creat Clear Calc Estimated GFR POC Glucose 161 H Random Glucose Calcium Total Bilirubin AST ALT Alkaline Phosphatase C-Reactive Protein Total Protein Albumin Beta HCG, Quant Laboratory Results - last 24 hr 09/10/23 09/10/23 09/11/23 16:26 20:56 06:58 Sodium Potassium Chloride Carbon Dioxide Anion Gap POC Glucose 97 164 H 68 Beta HCG, Quant 09/11/23 09/11/23 09/11/23 09:16 10:03 12:07 Sodium Potassium Chloride Carbon Dioxide Anion Gap POC Glucose 124 H 65 Beta HCG, Quant < 2 09/11/23 09/11/23 12:57 13:39 Sodium 133 L Potassium 4.2 D Chloride 100 Carbon Dioxide 22 Anion Gap 15 POC Glucose 161 H Beta HCG, Quant Airway Mallampati Class: II TM Dist: >3cm Neck ROM: Full Loose/Missing/Broken Teeth: Yes (Broken toothtop back right, missing teeth bottom back right abd keft) Heart: RRR+?systolic murmur Lungs: CTAB Assessment and Plan Assessment Anesthesia Assessment: Anesthesia Plan Discussed and Chart Reviewed Final Anesthetic Review Family History of Problems with Anesthesia: No History of Problems with Anesthesia: No NPO: Yes ASA Class: III Final Preanesthetic Review: No Changes in Pt Med Stat, Meds/Allgs Chart Reviewed, Consent Obtained/Reviewed and Anes Risks/Benef Reviewed Patient Risk: High Procedure Risk: Low Assessment/Block/Sedation in SS: Assess/Block/Sedation-SS Anesthetic Plan Anesthetic Plan: GA Disposition: Standard PACU and Inp. Admit - Standard Bed
--- NOTE | 2023-09-11 13:55 | PC.NURSE ---
left ac 20g iv flushed patently. no leaking. asymptomatic.
[2023-09-11 13:56] LABS: Anion Gap 15 (12-20); Carbon Dioxide 22 mmol/L (22-29); Chloride 100 mmol/L (96-108); Potassium 4.2 mmol/L (3.3-5.1); Sodium 133 mmol/L (135-145)
[2023-09-11] MEDS: 0.9 % Sodium Chloride 1,000 ML 50 ML IVCONT (13:58)
--- NOTE | 2023-09-11 15:14 | P.OP_ITS ---
Operative Note Operative Note Date of Service: 09/11/23 Narrative: Preop diagnosis: Toe ischemia, with ulcer Postop diagnosis: The same , with ulcer on the mid plantar aspect of the foot, with thick necrotic callus Procedure: Ray amputation of the 2nd, 3rd and 4th toes on the left; sharp excisional debridement of ulcer with callus, foot plantar area Surgeon: Tu Rajput MD outpatient physical therapist assistant: JOVON Chandra The patient is a 33-year-old female with a long history of peripheral vascular disease, end-stage renal disease, previous amputation of the toes on the left foot, and transmetatarsal amputation of the right foot, now admitted because of chronic pain on the remaining toes of the left foot. Initially, it appeared that she had an amputation of the 1st and 2nd dose on the left but on further examination, she actually had amputation of the 1st and 5th toes. The 2nd toe was discolored with an ulcer at the tip. She describes chronic pain on this particular toe and wanted to proceed with amputation. I told her that it would be best to proceed with amputation of the all remaining toes. She understood the technique of the planned procedure as well as the risks, benefits, and alternatives She was brought to the operating room. He was placed supine under general anesthesia via laryngeal mask airway. The left foot was prepped in the usual sterile fashion. A surgical time-out was done. The patient received cefazolin 2 g IV preoperatively I infiltrated my planned line of incision with lidocaine 1%. I made an incision on the skin around the 2nd, 3rd and 4th toes dorsally, and on the plantar aspect and connected this on both the medial and lateral sides used with a blade 15. This carried down with electrocautery through the full-thickness of the skin and subcutaneous fat. I proceeded to continue sharp dissection the area of the 2nd toe all the way to the distal metatarsal. I used curved Marks scissors to divide through thick soft tissue and tendons. I define the metatarsal head. Once this was achieved, I used the bone saw to divide the metatarsal head. I continued to then divide remaining soft tissue attachments with her Marks scissors, and electrocautery until was able to define the metatarsal head of the 2nd toe. Again I cleared up the distal metatarsal and used the bone saw again to divide the metatarsal head. I continued to divide the rest of the soft tissue attachments to the carefully anteriorly expose the 4th metatarsal which he was the last remaining toe. Once this was achieved, I proceeded to then used the bone saw again to divide this. I divided the remaining soft tissue attachments until the 2nd 3rd and 4th toes were delivered and sent as a specimen. I used electrocautery to achieve hemostasis on the amputation site. I copiously irrigated. I was then edges of the divided bone using the bone file. Once hemostasis was confirmed, I proceeded then reapposed subdermal layer with Polysorb 3-0 interrupted sutures. Skin closure was achieved with nylon 3-0 simple interrupted sutures. The area was infiltrated with Marcaine 0.5% for postop analgesia. Thick flaps dressings were placed and the foot was wrapped in Kerlix and Izaiah bandage . The patient also had this ulcer, measuring about 3 cm in diameter with thick callus on the mid plantar aspect of the same foot. I did sharp excisional debridement of the callus. The patient tolerated the procedure well. There were no immediate complications. Initial and final counts of sponges and instruments were correct. Estimated blood loss was about 100 cc The patient was extubated without difficulty and transferred to the recovery room with stable vital signs.
[2023-09-11 15:41] LABS: Glucose, Whole Blood 73 mg/dL (60-115)
--- NOTE | 2023-09-11 15:52 | MHC.CM.PN ---
EMR reviewed and per MD rounds, pt is not medically cleared for discharge as she had surgery for amputation of her 2nd, 3rd and 4th left toes today.
[2023-09-11] MEDS: Doxycycline Hyclate 100 MG in 0.9 % Sodium Chloride 250 ML 166.67 MG IV (16:18)
[2023-09-11 16:29] LABS: Glucose, Whole Blood 72 mg/dL (60-115)
[2023-09-11] MEDS: HYDROmorphone HCl 0.5 MG/0.5 ML SYRINGE IVPUSH (17:04)
--- NOTE | 2023-09-11 17:11 | PC.NURSE ---
Patient refusing PO medication, educated patient on purpose of medications. PA made aware.
[2023-09-11] MEDS: Piperacillin Sodium/Tazobactam 2.25 GM in 0.9 % Sodium Chloride 50 ML IV (18:09)
[2023-09-11] MEDS: hydrALAZINE HCl 50 MG TABLET PO (20:17)
[2023-09-11] MEDS: carvediloL 12.5 MG TABLET PO (20:17)
[2023-09-12] VITALS (10 sets, daily range): BP systolic 143–183; BP diastolic 81–96; PULSE 78–83; RESP 16–20; TEMP 36–36.6; O2SAT 95–100
[2023-09-12] MEDS: HYDROmorphone HCl 0.5 MG/0.5 ML SYRINGE IVPUSH ×5 (00:54→19:51)
[2023-09-12] MEDS: ondansetron HCL 4 MG/2 ML VIAL IVPUSH ×3 (00:58→15:15)
[2023-09-12] MEDS: Piperacillin Sodium/Tazobactam 2.25 GM in 0.9 % Sodium Chloride 50 ML IV (03:01)
[2023-09-12 03:53] LABS: Glucose, Whole Blood 134 mg/dL (60-115)
[2023-09-12] MEDS: Doxycycline Hyclate 100 MG in 0.9 % Sodium Chloride 250 ML 166 MG IV (05:15)
[2023-09-12] MEDS: Omeprazole 20 MG CAPSULE.DR PO (05:15)
[2023-09-12 07:10] LABS: Glucose, Whole Blood 96 mg/dL (60-115)
[2023-09-12] MEDS: 0.9 % Sodium Chloride Flush 3 ML SYRINGE IVFLUSH ×2 (07:47→15:16)
--- NOTE | 2023-09-12 08:32 | PM.PNGS ---
Subjective Subjective Date of Service: 09/12/23 Interval history: Says she has adequate pain control No events overnight Physical Exam Vital Signs: Vital Signs: Last Vital Signs Temp 97.1 F 09/12/23 08:00 Pulse 81 09/12/23 08:00 Resp 18 09/12/23 08:00 BP 171/90 H 09/12/23 08:00 Pulse Ox 98 09/12/23 08:00 O2 Del Method Room Air 09/12/23 08:00 O2 Flow Rate 4 09/11/23 15:25 BMI result Body Mass Index 22.6 Const: General: comfortable and no acute distress Resp: Effort & Inspection: normal respiratory effort Back/Spine/Pelvis: Other: Dressings dry Objective Data Active Medications Calcium Carbonate (Calcium Carbonate 750 Mg Tab.Chew) 300 mg PO TIDWM [facility] Last Admin: 09/11/23 17:02 Dose: Not Given Documented By: CHET Non-Admin Reason: Patient Refused Comments: PA aware of refusal of PO medication Carvedilol (Carvedilol 12.5 Mg Tablet) 12.5 mg PO BID [facility]; Protocol Last Admin: 09/11/23 20:17 Dose: 12.5 mg Documented By: MONTEZ Diphenhydramine HCl (Diphenhydramine Hcl 25 Mg Capsule) 50 mg PO Q6H PRN PRN Reason: Itching Last Admin: 09/11/23 20:17 Dose: 50 mg Documented By: MONTEZ Comments: Body itching Docusate Sodium (Docusate Sodium 100 Mg Capsule) 100 mg PO DAILY PRN PRN Reason: constipation Glucose (Glucose Gel 15 Gm Gel..Gram.) 15 gm PO Q15M PRN; Protocol PRN Reason: per Hypoglycemia Standing Ord. Hydralazine HCl (Hydralazine Hcl 50 Mg Tablet) 50 mg PO TID [facility]; Protocol Last Admin: 09/11/23 20:17 Dose: 50 mg Documented By: MONTEZ Hydromorphone HCl (Hydromorphone Hcl 0.5 Mg/0.5 Ml Syringe) 0.5 mg IVPUSH Q4H PRN; Protocol PRN Reason: Pain, Severe (Pain Scale 7-10) Last Admin: 09/12/23 05:15 Dose: 0.5 mg Documented By: HIEN Dextrose (D10) 250 mls @ 750 mls/hr IV Q15M PRN; Protocol PRN Reason: per Hypoglycemia Standing Ord. Last Infusion: 09/11/23 13:04 Dose: Infused Documented By: KARLI Piperacillin Sod/Tazobactam (Sod 2.25 gm/ Sodium Chloride) 50 mls @ 100 mls/hr IV Q8H [facility] Last Infusion: 09/12/23 05:18 Dose: Infused Documented By: HIEN Doxycycline Hyclate 100 mg/ (Sodium Chloride) 250 mls @ 166.67 mls/hr IV Q12H [facility] Last Infusion: 09/12/23 06:52 Dose: Infused Documented By: HIEN Insulin Human Lispro (Insulin Lispro 100 Unit/Ml 3 Ml Vial) 0 unit SUBCUT QIDACHS [facility]; Protocol Last Admin: 09/12/23 07:32 Dose: Not Given Documented By: YOLIS Non-Admin Reason: No Insulin Coverage Isosorbide Mononitrate (Isosorbide Mononitrate 30 Mg Tab.Er.24h) 30 mg PO DAILY [facility]; Protocol Last Admin: 09/11/23 08:11 Dose: Not Given Documented By: KARLI Non-Admin Reason: NPO Levetiracetam (Levetiracetam 1,000 Mg Tablet) 1,000 mg PO DAILY [facility] Last Admin: 09/11/23 08:11 Dose: Not Given Documented By: KARLI Non-Admin Reason: NPO Mirtazapine (Mirtazapine 7.5 Mg Tablet) 7.5 mg PO BEDTIME [facility] Last Admin: 09/11/23 20:18 Dose: Not Given Documented By: MONTEZ Non-Admin Reason: pt declined Omeprazole (Omeprazole 20 Mg Capsule.Dr) 20 mg PO DAILY@0630 [facility] Last Admin: 09/12/23 05:15 Dose: 20 mg Documented By: HIEN Ondansetron HCl (Ondansetron Hcl 4 Mg/2 Ml Vial) 4 mg IVPUSH Q4H PRN PRN Reason: Nausea and Vomiting Last Admin: 09/12/23 07:47 Dose: 4 mg Documented By: YOLIS Oxycodone HCl (Oxycodone Hcl Immed Release 5 Mg Tablet) 10 mg PO Q4H PRN PRN Reason: Pain, Severe (Pain Scale 7-10) Last Admin: 09/11/23 08:09 Dose: 10 mg Documented By: KARLI Sertraline HCl (Sertraline Hcl 25 Mg Tablet) 25 mg PO DAILY [facility] Last Admin: 09/11/23 08:12 Dose: Not Given Documented By: KARLI Non-Admin Reason: NPO Sodium Chloride (0.9 % Sodium Chloride Flush 3 Ml Syringe) 3 ml IVFLUSH QSHIFT [facility] Last Admin: 09/12/23 07:47 Dose: 3 ml Documented By: YOLIS Torsemide (Torsemide 20 Mg Tablet) 40 mg PO BID [facility]; Protocol Last Admin: 09/11/23 22:27 Dose: Not Given Documented By: MONTEZ Non-Admin Reason: Patient declined Vitamin D (Cholecalciferol (Vitamin D3) 25 Mcg Tablet) 50 mcg PO DAILY [facility] Last Admin: 09/11/23 08:11 Dose: Not Given Documented By: KARLI Non-Admin Reason: NPO Labs 09/09/23 03:35 09/11/23 13:39 Labs: Laboratory Results - last 24 hr 09/11/23 09/11/23 09/11/23 09:16 10:03 12:07 Anion Gap POC Glucose 124 H 65 Beta HCG, Quant < 2 09/11/23 09/11/23 09/11/23 12:57 13:39 15:14 Anion Gap 15 POC Glucose 161 H 73 Beta HCG, Quant 09/11/23 09/11/23 09/12/23 16:19 19:55 07:07 Anion Gap POC Glucose 72 134 H 96 Beta HCG, Quant Microbiology Microbiology Results: Microbiology 09/09/23 03:36 Blood Culture - Preliminary Blood - Venous No growth after 48 hours. 09/09/23 03:35 Blood Culture - Preliminary Blood - Venous No growth after 48 hours. Procedures Date of Service Date of Service: 09/12/23 Progress Note: A&P Assessment and plan (1) Toe necrosis: Status: Acute Assessment and Plan: Status post ray amputation of the 2nd, 3rd and 4th toes Dressings dry Plan to change dressings tomorrow Pain management Time Spent With Patient Time: Total time managing care of this patient today ____ minutes. Quality Stroke Does the patient have a stroke diagnosis?: No VTE Prior VTE?: No VTE Risk Level:: Medical - moderate - high VTE Device Contraindication: Treatment Not Indicated VTE Drug Contraindication: N/A - Med Ordered
--- NOTE | 2023-09-12 10:17 | HO.POSTANES ---
Post Anesthesia Evaluation Post Anesthesia Evaluation Date of Service: 09/12/23 Vital Signs: Vital Signs Temp Pulse Resp BP Pulse Ox O2 Del Method 09/12/23 08:00 97.1 F 81 18 171/90 H 98 Room Air 09/12/23 03:42 97.7 F 78 16 144/84 H 100 Room Air 09/12/23 00:00 97.2 F 82 16 168/96 H 100 Room Air Anesthesia: General Mental Status: Awake Nausea/Vomiting: Mild Hydration: Adequate Anesthesia-Related Issues: No Anes. Related Issues Comments: Complaining of pain which is being managed by primary care team. Anesthesia team to follow-up as necessary.
[2023-09-12] MEDS: hydrALAZINE HCl 50 MG TABLET PO (10:29)
[2023-09-12] MEDS: levETIRAcetam 1,000 MG TABLET 1000 MG PO (10:29)
[2023-09-12] MEDS: Calcium Carbonate 750 MG TAB.CHEW 300 MG PO ×2 (10:30→13:09)
[2023-09-12] MEDS: Isosorbide Mononitrate 30 MG TAB.ER.24H PO (10:30)
[2023-09-12] MEDS: carvediloL 12.5 MG TABLET PO (10:30)
[2023-09-12] MEDS: Torsemide 20 MG TABLET 40 MG PO (10:31)
[2023-09-12] MEDS: Sertraline HCL 25 MG TABLET PO (10:31)
[2023-09-12 10:51] LABS: Glucose, Whole Blood 101 mg/dL (60-115)
--- NOTE | 2023-09-12 12:13 | HO.PM.IMPN ---
Subjective Subjective Date of Service: 09/12/23 Interval History: Denies pain, status post left foot ray amputation of 2nd 3rd and 4th toes, no drainage noted, denies fever, no chills, no other acute issues stable blood pressure and blood sugars. Review of Systems All other system reviewed and negative. Physical Exam Vital Signs: Vital Signs: Last Vital Signs Temp 96.8 F 09/12/23 11:32 Pulse 83 09/12/23 11:32 Resp 18 09/12/23 11:32 BP 143/82 H 09/12/23 11:32 Pulse Ox 96 09/12/23 11:32 O2 Del Method Room Air 09/12/23 11:32 O2 Flow Rate 4 09/11/23 15:25 BMI result Body Mass Index 22.6 Const: Other: Gen: Awake alert in no acute distress HEENT: blind Neck: supple Lungs: clear to auscultation bilaterally Heart: regular rate and rhythm, no murmurs Abd: soft, non-tender, non-distended Ext: s/p R TMA, s/p L foot surgery, dry dressing in place, Neuro: alert and oriented x3, no focal findings Psych: Appropriate affect Objective Data Active Medications Calcium Carbonate (Calcium Carbonate 750 Mg Tab.Chew) 300 mg PO TIDWM [facility] Last Admin: 09/12/23 10:30 Dose: 300 mg Documented By: YOLIS Carvedilol (Carvedilol 12.5 Mg Tablet) 12.5 mg PO BID [facility]; Protocol Last Admin: 09/12/23 10:30 Dose: 12.5 mg Documented By: YOLIS Diphenhydramine HCl (Diphenhydramine Hcl 25 Mg Capsule) 50 mg PO Q6H PRN PRN Reason: Itching Last Admin: 09/11/23 20:17 Dose: 50 mg Documented By: MONTEZ Comments: Body itching Docusate Sodium (Docusate Sodium 100 Mg Capsule) 100 mg PO DAILY PRN PRN Reason: constipation Glucose (Glucose Gel 15 Gm Gel..Gram.) 15 gm PO Q15M PRN; Protocol PRN Reason: per Hypoglycemia Standing Ord. Hydralazine HCl (Hydralazine Hcl 50 Mg Tablet) 50 mg PO TID [facility]; Protocol Last Admin: 09/12/23 10:29 Dose: 50 mg Documented By: YOLIS Hydromorphone HCl (Hydromorphone Hcl 0.5 Mg/0.5 Ml Syringe) 0.5 mg IVPUSH Q4H PRN; Protocol PRN Reason: Pain, Severe (Pain Scale 7-10) Last Admin: 09/12/23 05:15 Dose: 0.5 mg Documented By: HIEN Dextrose (D10) 250 mls @ 750 mls/hr IV Q15M PRN; Protocol PRN Reason: per Hypoglycemia Standing Ord. Last Infusion: 09/11/23 13:04 Dose: Infused Documented By: KARLI Piperacillin Sod/Tazobactam (Sod 2.25 gm/ Sodium Chloride) 50 mls @ 100 mls/hr IV Q8H [facility] Last Admin: 09/12/23 11:09 Dose: Not Given Documented By: YOLIS Non-Admin Reason: Patient Refused Doxycycline Hyclate 100 mg/ (Sodium Chloride) 250 mls @ 166.67 mls/hr IV Q12H [facility] Last Infusion: 09/12/23 06:52 Dose: Infused Documented By: HIEN Insulin Human Lispro (Insulin Lispro 100 Unit/Ml 3 Ml Vial) 0 unit SUBCUT QIDACHS [facility]; Protocol Last Admin: 09/12/23 07:32 Dose: Not Given Documented By: YOLIS Non-Admin Reason: No Insulin Coverage Isosorbide Mononitrate (Isosorbide Mononitrate 30 Mg Tab.Er.24h) 30 mg PO DAILY [facility]; Protocol Last Admin: 09/12/23 10:30 Dose: 30 mg Documented By: YOLIS Levetiracetam (Levetiracetam 1,000 Mg Tablet) 1,000 mg PO DAILY [facility] Last Admin: 09/12/23 10:29 Dose: 1,000 mg Documented By: YOLIS Mirtazapine (Mirtazapine 7.5 Mg Tablet) 7.5 mg PO BEDTIME [facility] Last Admin: 09/11/23 20:18 Dose: Not Given Documented By: MONTEZ Non-Admin Reason: pt declined Omeprazole (Omeprazole 20 Mg Capsule.) 20 mg PO DAILY@0630 [facility] Last Admin: 09/12/23 05:15 Dose: 20 mg Documented By: HIEN Ondansetron HCl (Ondansetron Hcl 4 Mg/2 Ml Vial) 4 mg IVPUSH Q4H PRN PRN Reason: Nausea and Vomiting Last Admin: 09/12/23 07:47 Dose: 4 mg Documented By: YOLIS Oxycodone HCl (Oxycodone Hcl Immed Release 5 Mg Tablet) 10 mg PO Q4H PRN PRN Reason: Pain, Severe (Pain Scale 7-10) Last Admin: 09/11/23 08:09 Dose: 10 mg Documented By: KARLI Sertraline HCl (Sertraline Hcl 25 Mg Tablet) 25 mg PO DAILY [facility] Last Admin: 09/12/23 10:31 Dose: 25 mg Documented By: YOLIS Sodium Chloride (0.9 % Sodium Chloride Flush 3 Ml Syringe) 3 ml IVFLUSH QSHIFT [facility] Last Admin: 09/12/23 07:47 Dose: 3 ml Documented By: YOLIS Torsemide (Torsemide 20 Mg Tablet) 40 mg PO BID [facility]; Protocol Last Admin: 09/12/23 10:31 Dose: 40 mg Documented By: YOLIS Vitamin D (Cholecalciferol (Vitamin D3) 25 Mcg Tablet) 50 mcg PO DAILY [facility] Last Admin: 09/12/23 10:40 Dose: Not Given Documented By: YOLIS Non-Admin Reason: Patient Refused Labs 09/09/23 03:35 09/11/23 13:39 Labs: Laboratory Results - last 24 hr 09/11/23 09/11/23 09/11/23 12:57 13:39 15:14 Anion Gap 15 POC Glucose 161 H 73 09/11/23 09/11/23 09/12/23 16:19 19:55 07:07 Anion Gap POC Glucose 72 134 H 96 09/12/23 10:47 Anion Gap POC Glucose 101 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, peripheral arterial disease status post bilateral TMA, poorly controlled hypertension due to noncompliance with medications, chronic hypoxic respiratory failure on 4 L baseline supplemental oxygen, congestive heart failure with reduced ejection fraction, mood disorder, chronic pain with opioid seeking behavior, cardiomyopathy here with left 2nd toe ulcer and hyperkalemia Left 2nd toe necrosis no acute complaints on IV antibiotic therapy with doxycycline and Zosyn (has been refusing) started 09/08 left foot x-ray no evidence of osteo with recent MRI also neg Seen by General surgery status post ray amputation 2nd 3rd and 4th toes left foot /dressing to be changed by General surgery at a.m. will discuss continued antibiotic use with general surgery blood cultures neg after 48 hrs Hyperkalemia associated with metabolic acidosis secondary to ESRD + noncompliance with hemodialysis. last dialysis 09/10, potassium improved to 4.2 ESRD on HD continue , , schedule Uncontrolled hypertension. BP stable today, question noncompliance, Continue Coreg, Hydralazine , isosorbide Type 2 diabetes mellitus. Stable blood sugars continue point of care blood sugars t.i.d. and at bedtime Continue diabetic diet and Insulin sliding scale. Mood disorder. Continue sertraline. HFrEF Continue diuretics, carvedilol and hemodialysis. CAD. Continue aspirin, Imdur and carvedilol. Chronic pain with opiate seeking behavior. Avoid opiates if able Chronic anemia. Close to baseline, Above transfusion threshold, follow CBC Code status: Full DVT prophylaxis: heparin Patient will need continued inpatient hospitalization for close monitoring of left foot wound post surgery and for IV antibiotic therapy . Quality Stroke Does the patient have a stroke diagnosis?: No VTE Prior VTE?: No VTE Risk Level:: Medical - moderate - high VTE Device Contraindication: Treatment Not Indicated VTE Drug Contraindication: N/A - Med Ordered
--- NOTE | 2023-09-12 13:30 | MHC.CM.PN ---
EMR reviewed and per MD rounds, pt is not medically cleared for discharge due to management of left foot wound s/p surgical amputation of toes (POD1) and requiring IV antibiotics.
[2023-09-12] MEDS: Doxycycline Hyclate 100 MG in 0.9 % Sodium Chloride 250 ML 166.67 MG IV (15:12)
[2023-09-12 15:18] LABS: Glucose, Whole Blood 119 mg/dL (60-115)
[2023-09-13] VITALS (8 sets, daily range): BP systolic 134–184; BP diastolic 35–90; PULSE 77–87; RESP 18–22; TEMP 35.7–36.6; O2SAT 92–96
[2023-09-13] MEDS: HYDROmorphone HCl 0.5 MG/0.5 ML SYRINGE IVPUSH ×6 (00:13→23:01)
--- NOTE | 2023-09-13 04:15 | PC.NURSE ---
a&ox4, flat affect. patient non-compliant with recommended care and medications. refused all medications overnight except for IV dilaudid for pain. pt refused POC at bedtime, did allow [employer] DESIGNER to take vital signs overnight - patient blood pressure hypertensive - continued to refuse medication, MD Donato notified/aware. pt educated on the importance of sticking to care plan and medication compliance especially in regards to DM management and antibiotic therapy. patient states understanding but not receptive. dressing to bilateral feet CDI, trace edema to ankles. right chest Vasques for dialysis intact - pt unsure if she will attend dialysis today. pt educated on the importance of sticking to HD schedule. not receptive. all needs met, call moore in reach.
--- NOTE | 2023-09-13 07:41 | PM.PNGS ---
Subjective Subjective Date of Service: 09/13/23 <Sindi Chandra PA-C - Last Filed: 09/13/23 07:46> 09/13/23 <Tu Rajput MD - Last Filed: 09/13/23 08:08> Interval history: Comfortable with pain meds. <LEXA José Last Filed: 09/13/23 07:46> Physical Exam Vital Signs: Vital Signs: Last Vital Signs Temp 96.7 F L 09/13/23 03:32 Pulse 81 09/13/23 03:32 Resp 18 09/13/23 03:32 BP 184/90 H 09/13/23 03:32 Pulse Ox 94 09/13/23 03:32 O2 Del Method Room Air 09/13/23 03:32 O2 Flow Rate 4 09/11/23 15:25 BMI result Body Mass Index 22.6 <Sindi Chandra PA-C - Last Filed: 09/13/23 07:46> Const: General: comfortable, no acute distress and alert <Sindi Chandra PA-C - Last Filed: 09/13/23 07:46> Resp: Effort & Inspection: normal respiratory effort <Sindi Chandra PA-C - Last Filed: 09/13/23 07:46> Extrem: Other: left foot amp site- sutures intact, flaps viable appearing plantar ulcer- wound base clean appearing, no granulation tissue, small amount of callus remaining <Sindi Chandra PA-C - Last Filed: 09/13/23 07:46> Objective Data Active Medications Calcium Carbonate (Calcium Carbonate 750 Mg Tab.Chew) 300 mg PO TIDWM [facility] Last Admin: 09/12/23 18:20 Dose: Not Given Documented By: YOLIS Non-Admin Reason: Patient Refused Carvedilol (Carvedilol 12.5 Mg Tablet) 12.5 mg PO BID [facility]; Protocol Last Admin: 09/12/23 20:17 Dose: Not Given Documented By: SAMEER Non-Admin Reason: Patient Refused Diphenhydramine HCl (Diphenhydramine Hcl 25 Mg Capsule) 50 mg PO Q6H PRN PRN Reason: Itching Last Admin: 09/11/23 20:17 Dose: 50 mg Documented By: MONTEZ Comments: Body itching Docusate Sodium (Docusate Sodium 100 Mg Capsule) 100 mg PO DAILY PRN PRN Reason: constipation Glucose (Glucose Gel 15 Gm Gel..Gram.) 15 gm PO Q15M PRN; Protocol PRN Reason: per Hypoglycemia Standing Ord. Heparin Sodium (Porcine) (Heparin Sodium,Porcine 5,000 Unit/Ml Vial) 5,000 unit SUBCUT Q12H [facility] Last Admin: 09/13/23 00:45 Dose: Not Given Hydralazine HCl (Hydralazine Hcl 50 Mg Tablet) 50 mg PO TID [facility]; Protocol Last Admin: 09/12/23 20:17 Dose: Not Given Documented By: SAMEER Non-Admin Reason: Patient Refused Hydromorphone HCl (Hydromorphone Hcl 0.5 Mg/0.5 Ml Syringe) 0.5 mg IVPUSH Q4H PRN; Protocol PRN Reason: Pain, Severe (Pain Scale 7-10) Last Admin: 09/13/23 04:15 Dose: 0.5 mg Documented By: SAMEER Dextrose (D10) 250 mls @ 750 mls/hr IV Q15M PRN; Protocol PRN Reason: per Hypoglycemia Standing Ord. Last Infusion: 09/11/23 13:04 Dose: Infused Documented By: KARLI Piperacillin Sod/Tazobactam (Sod 2.25 gm/ Sodium Chloride) 50 mls @ 100 mls/hr IV Q8H [facility] Last Admin: 09/13/23 00:46 Dose: Not Given Documented By: SAMEER Non-Admin Reason: Patient Refused Doxycycline Hyclate 100 mg/ (Sodium Chloride) 250 mls @ 166.67 mls/hr IV Q12H [facility] Last Admin: 09/13/23 03:57 Dose: Not Given Documented By: SAMEER Non-Admin Reason: Patient Refused Insulin Human Lispro (Insulin Lispro 100 Unit/Ml 3 Ml Vial) 0 unit SUBCUT QIDACHS [facility]; Protocol Last Admin: 09/12/23 20:17 Dose: Not Given Documented By: SAMEER Non-Admin Reason: Patient Refused Isosorbide Mononitrate (Isosorbide Mononitrate 30 Mg Tab.Er.24h) 30 mg PO DAILY [facility]; Protocol Last Admin: 09/12/23 10:30 Dose: 30 mg Documented By: YOLIS Levetiracetam (Levetiracetam 1,000 Mg Tablet) 1,000 mg PO DAILY [facility] Last Admin: 09/12/23 10:29 Dose: 1,000 mg Documented By: YOLIS Mirtazapine (Mirtazapine 7.5 Mg Tablet) 7.5 mg PO BEDTIME [facility] Last Admin: 09/12/23 20:18 Dose: Not Given Documented By: SAMEER Non-Admin Reason: Patient Refused Omeprazole (Omeprazole 20 Mg Capsule.) 20 mg PO DAILY@0630 [facility] Last Admin: 09/13/23 06:12 Dose: Not Given Documented By: SAMEER Non-Admin Reason: Patient Refused Ondansetron HCl (Ondansetron Hcl 4 Mg/2 Ml Vial) 4 mg IVPUSH Q4H PRN PRN Reason: Nausea and Vomiting Last Admin: 09/12/23 15:15 Dose: 4 mg Documented By: YOLIS Oxycodone HCl (Oxycodone Hcl Immed Release 5 Mg Tablet) 10 mg PO Q4H PRN PRN Reason: Pain, Severe (Pain Scale 7-10) Last Admin: 09/11/23 08:09 Dose: 10 mg Documented By: KARLI Sertraline HCl (Sertraline Hcl 25 Mg Tablet) 25 mg PO DAILY [facility] Last Admin: 09/12/23 10:31 Dose: 25 mg Documented By: YOLIS Sodium Chloride (0.9 % Sodium Chloride Flush 3 Ml Syringe) 3 ml IVFLUSH QSHIFT [facility] Last Admin: 09/12/23 22:57 Dose: Not Given Documented By: SAMEER Non-Admin Reason: Patient Refused Torsemide (Torsemide 20 Mg Tablet) 40 mg PO BID [facility]; Protocol Last Admin: 09/12/23 20:18 Dose: Not Given Documented By: SAMEER Non-Admin Reason: Patient Refused Vitamin D (Cholecalciferol (Vitamin D3) 25 Mcg Tablet) 50 mcg PO DAILY [facility] Last Admin: 09/12/23 10:40 Dose: Not Given Documented By: YOLIS Non-Admin Reason: Patient Refused <Sindi Chandra PA-C - Last Filed: 09/13/23 07:46> Labs CBC & Chem 7: 09/09/23 03:35 09/11/23 13:39 <Sindi Chandra PA-C - Last Filed: 09/13/23 07:46> Labs: Laboratory Results - last 24 hr 09/12/23 09/12/23 10:47 15:06 POC Glucose 101 119 H <Sindi Chandra PA-C - Last Filed: 09/13/23 07:46> Procedures Date of Service Date of Service: 09/13/23 <Sindi Chandra PA-C - Last Filed: 09/13/23 07:46> 09/13/23 <Tu Rajput MD - Last Filed: 09/13/23 08:08> Progress Note: A&P Assessment and plan (1) Toe necrosis: Status: Acute <Sindi Chandra PA-C - Last Filed: 09/13/23 07:46> Assessment and Plan: good pain control dressings changed continue dry dressing daily no weight beearing on forefoot seen and examined independently <Tu Rajput MD - Last Filed: 09/13/23 08:08> (2) Chronic ulcer of left foot due to diabetes mellitus: Status: Acute <Sindi Chandra PA-C - Last Filed: 09/13/23 07:46> Assessment and Plan: POD #2 S/P Ray amputation of the 2nd, 3rd and 4th toes on the left and debridement of plantar callus/ulcer. Amp site clean appearing, sutures intact, flaps viable. Ulcer clean, no granulation but surrounding callus significantly improved. Silver alginate to ulcer base, xeroform to amputation site followed by fluffs, kerlix wrap and gisela. <Sindi Chandra PA-C - Last Filed: 09/13/23 07:46> Time Spent With Patient Time: Total time managing care of this patient today ____ minutes. <Sindi Chandra PA-C - Last Filed: 09/13/23 07:46> Quality Stroke Does the patient have a stroke diagnosis?: No <LEXA José Last Filed: 09/13/23 07:46> VTE Prior VTE?: No <Sindi Chandra PA-C - Last Filed: 09/13/23 07:46> VTE Risk Level:: Medical - moderate - high <Sindi Chandra PA-C - Last Filed: 09/13/23 07:46> VTE Device Contraindication: Treatment Not Indicated <Sindi Chandra PA-C - Last Filed: 09/13/23 07:46> VTE Drug Contraindication: N/A - Med Ordered <Sindi Chandra PA-C - Last Filed: 09/13/23 07:46>
[2023-09-13 07:53] LABS: Glucose, Whole Blood 64 mg/dL (60-115)
[2023-09-13] MEDS: hydrALAZINE HCl 50 MG TABLET PO ×2 (07:58→21:33)
[2023-09-13] MEDS: levETIRAcetam 1,000 MG TABLET 1000 MG PO (07:58)
[2023-09-13] MEDS: Calcium Carbonate 750 MG TAB.CHEW 300 MG PO ×2 (07:59→18:25)
[2023-09-13] MEDS: carvediloL 12.5 MG TABLET PO ×2 (07:59→21:35)
[2023-09-13] MEDS: Torsemide 20 MG TABLET 40 MG PO ×2 (07:59→21:36)
[2023-09-13] MEDS: Isosorbide Mononitrate 30 MG TAB.ER.24H PO (07:59)
[2023-09-13] MEDS: Glucose Gel 15 GM GEL..GRAM. PO (08:06)
[2023-09-13] MEDS: ondansetron HCL 4 MG/2 ML VIAL IVPUSH (08:08)
[2023-09-13] MEDS: diphenhydrAMINE HCL 25 MG CAPSULE 50 MG PO (08:08)
[2023-09-13 08:34] LABS: Glucose, Whole Blood 94 mg/dL (60-115)
[2023-09-13] MEDS: Sertraline HCL 25 MG TABLET PO (08:38)
--- NOTE | 2023-09-13 11:23 | P.PNNP_ITS ---
Subjective Subjective Date of Service: 09/13/23 Interval history: seen and examined Physical Exam 2 Vital Signs: Vital Signs: Last Vital Signs Temp 97.9 F 09/13/23 07:59 Pulse 87 09/13/23 07:59 Resp 18 09/13/23 07:59 BP 155/90 H 09/13/23 07:59 Pulse Ox 92 09/13/23 07:59 O2 Del Method Room Air 09/13/23 07:59 O2 Flow Rate 4 09/11/23 15:25 BMI result Body Mass Index 22.6 Const: General: alert and awake HEENT: Head: Yes normocephalic and Yes atraumatic Neck: Neck: Yes supple Resp: Auscultation: clear to auscultation bilaterally Cardio: Heart sounds: S1 normal heart sound present and S2 normal heart sound present GI: Palpation (GI): Soft to palpation and nontender Objective Data Labs 09/09/23 03:35 09/11/23 13:39 Labs: Laboratory Results - last 24 hr 09/12/23 09/13/23 09/13/23 15:06 07:49 08:30 POC Glucose 119 H 64 94 Microbiology Microbiology Results: Microbiology 09/09/23 03:36 Blood - Venous Blood Culture - Preliminary No growth after 48 hours. 09/09/23 03:35 Blood - Venous Blood Culture - Preliminary No growth after 48 hours. Procedures Date of Service Date of Service: 09/13/23 Assessment & Plan Assessment and plan (1) ESRD (end stage renal disease): Status: Acute (2) Hyperkalemia: Status: Acute Plan s/p HD yesterday s/p amputation of 2nd 3rd and 4th usually has HD m-w- at [facility] nephrogenic anemia REC HD tomorrow VIPUL P binders renal diet Time Spent With Patient Time: Total time managing care of this patient today ____ minutes. Progress Note: Quality Stroke Does the patient have a stroke diagnosis?: No
[2023-09-13 12:08] LABS: Glucose, Whole Blood 105 mg/dL (60-115)
--- NOTE | 2023-09-13 14:10 | HO.PM.IMPN ---
Subjective Subjective Date of Service: 09/13/23 Interval History: Noted to have hypoglycemia blood sugar in 60s treated with glucose gel. Patient complaining of decreased appetite, denies pain, took blood pressure medications refusing antibiotics, no fevers, no chills, no headache, no dizziness. Review of Systems All other system reviewed and are negative Physical Exam Vital Signs: Vital Signs: Last Vital Signs Temp 97.9 F 09/13/23 07:59 Pulse 87 09/13/23 07:59 Resp 18 09/13/23 07:59 BP 155/90 H 09/13/23 07:59 Pulse Ox 92 09/13/23 07:59 O2 Del Method Room Air 09/13/23 07:59 O2 Flow Rate 4 09/11/23 15:25 BMI result Body Mass Index 22.6 Const: Other: Gen: Awake alert in no acute distress HEENT: blind Neck: supple Lungs: clear to auscultation bilaterally Heart: regular rate and rhythm, no murmurs Abd: soft, non-tender, non-distended Ext: s/p R TMA, s/p L foot surgery, dry dressing in place, Neuro: alert and oriented x3, no focal findings Psych: Appropriate affect Objective Data Active Medications Calcium Carbonate (Calcium Carbonate 750 Mg Tab.Chew) 300 mg PO TIDWM [facility] Last Admin: 09/13/23 07:59 Dose: 300 mg Documented By: YOLIS Carvedilol (Carvedilol 12.5 Mg Tablet) 12.5 mg PO BID [facility]; Protocol Last Admin: 09/13/23 07:59 Dose: 12.5 mg Documented By: YOLIS Diphenhydramine HCl (Diphenhydramine Hcl 25 Mg Capsule) 50 mg PO Q6H PRN PRN Reason: Itching Last Admin: 09/13/23 08:08 Dose: 50 mg Documented By: YOLIS Docusate Sodium (Docusate Sodium 100 Mg Capsule) 100 mg PO DAILY PRN PRN Reason: constipation Glucose (Glucose Gel 15 Gm Gel..Gram.) 15 gm PO Q15M PRN; Protocol PRN Reason: per Hypoglycemia Standing Ord. Last Admin: 09/13/23 08:06 Dose: 15 gm Documented By: YOLIS Heparin Sodium (Porcine) (Heparin Sodium,Porcine 5,000 Unit/Ml Vial) 5,000 unit SUBCUT Q12H [facility] Last Admin: 09/13/23 00:45 Dose: Not Given Hydralazine HCl (Hydralazine Hcl 50 Mg Tablet) 50 mg PO TID [facility]; Protocol Last Admin: 09/13/23 07:58 Dose: 50 mg Documented By: YOLIS Hydromorphone HCl (Hydromorphone Hcl 0.5 Mg/0.5 Ml Syringe) 0.5 mg IVPUSH Q4H PRN; Protocol PRN Reason: Pain, Severe (Pain Scale 7-10) Last Admin: 09/13/23 07:58 Dose: 0.5 mg Documented By: YOLIS Dextrose (D10) 250 mls @ 750 mls/hr IV Q15M PRN; Protocol PRN Reason: per Hypoglycemia Standing Ord. Last Infusion: 09/11/23 13:04 Dose: Infused Documented By: KARLI Piperacillin Sod/Tazobactam (Sod 2.25 gm/ Sodium Chloride) 50 mls @ 100 mls/hr IV Q8H [facility] Last Admin: 09/13/23 10:15 Dose: Not Given Documented By: YOLIS Non-Admin Reason: Patient Refused Doxycycline Hyclate 100 mg/ (Sodium Chloride) 250 mls @ 166.67 mls/hr IV Q12H [facility] Last Admin: 09/13/23 03:57 Dose: Not Given Documented By: SAMEER Non-Admin Reason: Patient Refused Insulin Human Lispro (Insulin Lispro 100 Unit/Ml 3 Ml Vial) 0 unit SUBCUT QIDACHS [facility]; Protocol Last Admin: 09/13/23 12:10 Dose: Not Given Documented By: YOLIS Non-Admin Reason: No Insulin Coverage Isosorbide Mononitrate (Isosorbide Mononitrate 30 Mg Tab.Er.24h) 30 mg PO DAILY [facility]; Protocol Last Admin: 09/13/23 07:59 Dose: 30 mg Documented By: YOLIS Levetiracetam (Levetiracetam 1,000 Mg Tablet) 1,000 mg PO DAILY [facility] Last Admin: 09/13/23 07:58 Dose: 1,000 mg Documented By: YOLIS Mirtazapine (Mirtazapine 7.5 Mg Tablet) 7.5 mg PO BEDTIME [facility] Last Admin: 09/12/23 20:18 Dose: Not Given Documented By: SAMEER Non-Admin Reason: Patient Refused Omeprazole (Omeprazole 20 Mg Deep.) 20 mg PO DAILY@0630 [facility] Last Admin: 09/13/23 06:12 Dose: Not Given Documented By: SAMEER Non-Admin Reason: Patient Refused Ondansetron HCl (Ondansetron Hcl 4 Mg/2 Ml Vial) 4 mg IVPUSH Q4H PRN PRN Reason: Nausea and Vomiting Last Admin: 09/13/23 08:08 Dose: 4 mg Documented By: YOLIS Oxycodone HCl (Oxycodone Hcl Immed Release 5 Mg Tablet) 10 mg PO Q4H PRN PRN Reason: Pain, Severe (Pain Scale 7-10) Last Admin: 09/11/23 08:09 Dose: 10 mg Documented By: KARLI Sertraline HCl (Sertraline Hcl 25 Mg Tablet) 25 mg PO DAILY [facility] Last Admin: 09/13/23 08:38 Dose: 25 mg Documented By: YOLIS Sodium Chloride (0.9 % Sodium Chloride Flush 3 Ml Syringe) 3 ml IVFLUSH QSHIFT [facility] Last Admin: 09/13/23 08:36 Dose: Not Given Documented By: YOLIS Non-Admin Reason: Previously Administered Torsemide (Torsemide 20 Mg Tablet) 40 mg PO BID [facility]; Protocol Last Admin: 09/13/23 07:59 Dose: 40 mg Documented By: YOLIS Vitamin D (Cholecalciferol (Vitamin D3) 25 Mcg Tablet) 50 mcg PO DAILY [facility] Last Admin: 09/13/23 08:39 Dose: Not Given Documented By: YOLIS Non-Admin Reason: Patient Refused Labs 09/09/23 03:35 09/11/23 13:39 Labs: Laboratory Results - last 24 hr 09/12/23 09/13/23 09/13/23 15:06 07:49 08:30 POC Glucose 119 H 64 94 09/13/23 12:05 POC Glucose 105 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, peripheral arterial disease status post bilateral TMA, poorly controlled hypertension due to noncompliance with medications, chronic hypoxic respiratory failure on 4 L baseline supplemental oxygen, congestive heart failure with reduced ejection fraction, mood disorder, chronic pain with opioid seeking behavior, cardiomyopathy here with left 2nd toe ulcer and hyperkalemia Left 2nd toe necrosis no acute complaints on IV antibiotic therapy with doxycycline and Zosyn (has been refusing) started 09/08 left foot x-ray no evidence of osteo with recent MRI also neg Seen by General surgery status post ray amputation 2nd 3rd and 4th toes left foot POD # 2 /dressing changed by General surgery Will DC IV antibiotics, surgery recommends non weight bearing on forefoot, daily dry dressings Plantar callus ulcer appears clean, surgery recommend silver alginate to ulcer place and Xeroform to amputation site followed by fluffs blood cultures neg after 48 hrs Will discuss discharge plan with General surgery. Hyperkalemia associated with metabolic acidosis secondary to ESRD + noncompliance with hemodialysis. last dialysis 09/10, potassium improved to 4.2 ESRD on HD continue , schedule Uncontrolled hypertension. BP stable today, question noncompliance, Continue Coreg, Hydralazine , isosorbide Type 2 diabetes mellitus. Low blood sugars this morning likely due to poor by mouth intake, continue point of care blood sugars t.i.d. and at bedtime Continue diabetic diet and Insulin sliding scale. Mood disorder. Continue sertraline. HFrEF Continue diuretics, carvedilol and hemodialysis. CAD. Continue aspirin, Imdur and carvedilol. Chronic pain with opiate seeking behavior. Not asking for pain medications Chronic anemia. Close to baseline, Above transfusion threshold, follow CBC Code status: Full DVT prophylaxis: heparin Patient will need continued inpatient hospitalization for close monitoring of left foot wound post surgery and for IV antibiotic therapy . Quality Stroke Does the patient have a stroke diagnosis?: No VTE Prior VTE?: No VTE Risk Level:: Medical - moderate - high VTE Device Contraindication: Treatment Not Indicated VTE Drug Contraindication: N/A - Med Ordered
[2023-09-13 17:19] LABS: Glucose, Whole Blood 88 mg/dL (60-115)
--- NOTE | 2023-09-13 17:23 | PC.NURSE ---
Patient stated that she would take Epoetin javid injection and zosyn after dialysis, but upon returning from dialysis patient is still refusing meds. notified
[2023-09-13] MEDS: Mirtazapine 7.5 MG TABLET PO (21:33)
[2023-09-13] MEDS: 0.9 % Sodium Chloride Flush 3 ML SYRINGE IVFLUSH (23:02)
[2023-09-14] VITALS (8 sets, daily range): BP systolic 103–140; BP diastolic 48–72; PULSE 71–79; RESP 16–20; TEMP 35.9–36.6; O2SAT 94–99
[2023-09-14] MEDS: HYDROmorphone HCl 0.5 MG/0.5 ML SYRINGE IVPUSH ×5 (05:01→22:14)
[2023-09-14 08:07] LABS: Glucose, Whole Blood 79 mg/dL (60-115)
[2023-09-14] MEDS: 0.9 % Sodium Chloride Flush 3 ML SYRINGE IVFLUSH ×2 (09:06→17:06)
[2023-09-14] MEDS: Torsemide 20 MG TABLET 40 MG PO ×2 (09:07→20:27)
[2023-09-14] MEDS: Calcium Carbonate 750 MG TAB.CHEW 300 MG PO (09:08)
[2023-09-14] MEDS: Isosorbide Mononitrate 30 MG TAB.ER.24H PO (09:10)
[2023-09-14] MEDS: carvediloL 12.5 MG TABLET PO ×2 (09:10→20:28)
[2023-09-14] MEDS: hydrALAZINE HCl 50 MG TABLET PO ×2 (09:11→20:27)
[2023-09-14] MEDS: levETIRAcetam 1,000 MG TABLET 1000 MG PO (09:11)
[2023-09-14] MEDS: Sertraline HCL 25 MG TABLET PO (09:11)
[2023-09-14 11:38] LABS: Glucose, Whole Blood 110 mg/dL (60-115)
--- NOTE | 2023-09-14 13:45 | P.PNIM_ITS ---
Subjective Subjective Date of Service: 09/14/23 Interval History: Complaining of nausea, no vomiting finished breakfast, blood sugar and BP stable, no acute events overnight. Review of Systems All other system are reviewed and are negative. Physical Exam 2 Vital Signs: Vital Signs: Last Vital Signs Temp 97.3 F 09/14/23 11:25 Pulse 71 09/14/23 11:25 Resp 20 09/14/23 11:25 BP 123/63 09/14/23 11:25 Pulse Ox 95 09/14/23 11:25 O2 Del Method Room Air 09/14/23 11:25 O2 Flow Rate 4 09/11/23 15:25 BMI result Body Mass Index 22.6 Const: Other: Gen: Awake alert in no acute distress HEENT: blind Neck: supple Lungs: clear to auscultation bilaterally Heart: regular rate and rhythm, no murmurs Abd: soft, non-tender, non-distended Ext: s/p R TMA, s/p L foot surgery, dry dressing in place, Neuro: alert and oriented x3, no focal findings Psych: Appropriate affect Objective Data Active Medications Calcium Carbonate (Calcium Carbonate 750 Mg Tab.Chew) 300 mg PO TIDWM [facility] Last Admin: 09/14/23 12:48 Dose: Not Given Documented By: CHAKA Non-Admin Reason: Patient Refused Carvedilol (Carvedilol 12.5 Mg Tablet) 12.5 mg PO BID [facility]; Protocol Last Admin: 09/14/23 09:10 Dose: 12.5 mg Documented By: CHAKA Diphenhydramine HCl (Diphenhydramine Hcl 25 Mg Capsule) 50 mg PO Q6H PRN PRN Reason: Itching Last Admin: 09/13/23 08:08 Dose: 50 mg Documented By: YOLIS Docusate Sodium (Docusate Sodium 100 Mg Capsule) 100 mg PO DAILY PRN PRN Reason: constipation Glucose (Glucose Gel 15 Gm Gel..Gram.) 15 gm PO Q15M PRN; Protocol PRN Reason: per Hypoglycemia Standing Ord. Last Admin: 09/13/23 08:06 Dose: 15 gm Documented By: YOLIS Heparin Sodium (Porcine) (Heparin Sodium,Porcine 5,000 Unit/Ml Vial) 5,000 unit SUBCUT Q12H [facility] Last Admin: 09/14/23 12:49 Dose: Not Given Documented By: CHAKA Non-Admin Reason: Patient Refused Hydralazine HCl (Hydralazine Hcl 50 Mg Tablet) 50 mg PO TID [facility]; Protocol Last Admin: 09/14/23 09:11 Dose: 50 mg Documented By: CHAKA Hydromorphone HCl (Hydromorphone Hcl 0.5 Mg/0.5 Ml Syringe) 0.5 mg IVPUSH Q4H PRN; Protocol PRN Reason: Pain, Severe (Pain Scale 7-10) Last Admin: 09/14/23 09:06 Dose: 0.5 mg Documented By: CHAKA Dextrose (D10) 250 mls @ 750 mls/hr IV Q15M PRN; Protocol PRN Reason: per Hypoglycemia Standing Ord. Last Infusion: 09/11/23 13:04 Dose: Infused Documented By: KARLI Insulin Human Lispro (Insulin Lispro 100 Unit/Ml 3 Ml Vial) 0 unit SUBCUT QIDACHS [facility]; Protocol Last Admin: 09/14/23 12:48 Dose: Not Given Documented By: CHAKA Non-Admin Reason: No Insulin Coverage Isosorbide Mononitrate (Isosorbide Mononitrate 30 Mg Tab.Er.24h) 30 mg PO DAILY [facility]; Protocol Last Admin: 09/14/23 09:10 Dose: 30 mg Documented By: CHAKA Levetiracetam (Levetiracetam 1,000 Mg Tablet) 1,000 mg PO DAILY [facility] Last Admin: 09/14/23 09:11 Dose: 1,000 mg Documented By: CHAKA Mirtazapine (Mirtazapine 7.5 Mg Tablet) 7.5 mg PO BEDTIME [facility] Last Admin: 09/13/23 21:33 Dose: 7.5 mg Documented By: ELISE Omeprazole (Omeprazole 20 Mg Capsule.Dr) 20 mg PO DAILY@0630 [facility] Last Admin: 09/14/23 05:02 Dose: Not Given Documented By: SAMSON Non-Admin Reason: Patient Refused Ondansetron HCl (Ondansetron Hcl 4 Mg/2 Ml Vial) 4 mg IVPUSH Q4H PRN PRN Reason: Nausea and Vomiting Last Admin: 09/13/23 08:08 Dose: 4 mg Documented By: YOLIS Oxycodone HCl (Oxycodone Hcl Immed Release 5 Mg Tablet) 10 mg PO Q4H PRN PRN Reason: Pain, Severe (Pain Scale 7-10) Last Admin: 09/11/23 08:09 Dose: 10 mg Documented By: KARLI Sertraline HCl (Sertraline Hcl 25 Mg Tablet) 25 mg PO DAILY [facility] Last Admin: 09/14/23 09:11 Dose: 25 mg Documented By: CHAKA Sodium Chloride (0.9 % Sodium Chloride Flush 3 Ml Syringe) 3 ml IVFLUSH QSHIFT [facility] Last Admin: 09/14/23 09:06 Dose: 3 ml Documented By: CHAKA Torsemide (Torsemide 20 Mg Tablet) 40 mg PO BID [facility]; Protocol Last Admin: 09/14/23 09:07 Dose: 40 mg Documented By: CHAKA Vitamin D (Cholecalciferol (Vitamin D3) 25 Mcg Tablet) 50 mcg PO DAILY [facility] Last Admin: 09/14/23 09:18 Dose: Not Given Documented By: CHAKA Non-Admin Reason: patient refused Labs 09/09/23 03:35 09/11/23 13:39 Labs: Laboratory Results - last 24 hr 09/13/23 09/14/23 09/14/23 17:15 08:00 10:56 POC Glucose 88 79 110 Microbiology Microbiology Results: Microbiology 09/09/23 03:36 Blood Culture - Final Blood - Venous No growth after 5 days. 09/09/23 03:35 Blood Culture - Final Blood - Venous No growth after 5 days. 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, peripheral arterial disease status post bilateral TMA, poorly controlled hypertension due to noncompliance with medications, chronic hypoxic respiratory failure on 4 L baseline supplemental oxygen, congestive heart failure with reduced ejection fraction, mood disorder, chronic pain with opioid seeking behavior, cardiomyopathy here with left 2nd toe ulcer and hyperkalemia Left 2nd toe necrosis no acute complaints s/p iv doxycycline and Zosyn 09/08 to 09/11 left foot x-ray no evidence of osteo with recent MRI also neg Seen by General surgery status post ray amputation 2nd 3rd and 4th toes left foot POD # 3 /dressing changed by General surgery surgery recommends non weight bearing on forefoot,and daily dry dressings Plantar callus ulcer appears clean, surgery recommend silver alginate to ulcer place and Xeroform to amputation site followed by fluffs blood cultures neg after 48 hrs Will discuss discharge plan with General surgery, patient wishes to be discharged home, will obtain PT consult patient is scared of ambulating. Hyperkalemia associated with metabolic acidosis secondary to ESRD + noncompliance with hemodialysis. potassium improved to 4.2 ESRD on HD Continue hemodialysis Uncontrolled hypertension. BP stable today, Continue Coreg, Hydralazine , isosorbide Type 2 diabetes mellitus. Stable blood sugars no recurrent episode of hypoglycemia tolerating diet, continue point of care blood sugars t.i.d. and at bedtime Continue diabetic diet and Insulin sliding scale. Mood disorder. Continue sertraline. HFrEF Continue diuretics, carvedilol and hemodialysis. CAD. Continue aspirin, Imdur and carvedilol. Chronic pain with opiate seeking behavior. Not asking for pain medications Chronic anemia. Close to baseline, Above transfusion threshold, follow CBC Code status: Full DVT prophylaxis: heparin Patient will need continued inpatient hospitalization for close monitoring of left foot wound post surgery and safe disposition. Quality Stroke Does the patient have a stroke diagnosis?: No VTE Prior VTE?: No VTE Risk Level:: Medical - moderate - high VTE Device Contraindication: Treatment Not Indicated VTE Drug Contraindication: N/A - Med Ordered
[2023-09-14] MEDS: diphenhydrAMINE HCL 25 MG CAPSULE 50 MG PO (13:49)
--- NOTE | 2023-09-14 14:00 | MHC.CM.PN ---
Per rounds and EMR review, pt is not yet ready for DC. DCP is TBD, pt. would like to return home, rec may be for STR. CM to follow and assist with DC plan.
[2023-09-14 15:44] LABS: Glucose, Whole Blood 136 mg/dL (60-115)
[2023-09-14] MEDS: ondansetron HCL 4 MG/2 ML VIAL IVPUSH (17:07)
[2023-09-14] MEDS: Mirtazapine 7.5 MG TABLET PO (20:28)
[2023-09-15] MEDS: 0.9 % Sodium Chloride Flush 3 ML SYRINGE IVFLUSH (01:31)
[2023-09-15] MEDS: HYDROmorphone HCl 0.5 MG/0.5 ML SYRINGE IVPUSH ×2 (02:14→06:17)
[2023-09-15] MEDS: diphenhydrAMINE HCL 25 MG CAPSULE 50 MG PO ×2 (02:14→12:41)
[2023-09-15 03:07] VITALS: BP 116/61; PULSE 70; RESP 16; TEMP 36.1; O2SAT 97
[2023-09-15] MEDS: Omeprazole 20 MG CAPSULE.DR PO (06:16)
[2023-09-15 08:00] VITALS: BP 127/67; PULSE 71; RESP 17; TEMP 36.4; O2SAT 99
--- NOTE | 2023-09-15 10:00 | P.PNIM_ITS ---
Subjective Subjective Date of Service: 09/15/23 Interval History: Being followed for left 2nd toe necrosis. Status post left foot surgery, good pain control, complain of nausea, no vomiting, tolerating diet, refusing point of care blood sugars, denies fever, no chills. No acute events overnight. Review of Systems All other system are reviewed and are negative. Physical Exam 2 Vital Signs: Vital Signs: Last Vital Signs Temp 97.6 F 09/15/23 08:00 Pulse 71 09/15/23 08:00 Resp 17 09/15/23 08:00 BP 127/67 09/15/23 08:00 Pulse Ox 99 09/15/23 08:00 O2 Del Method Room Air 09/15/23 08:00 O2 Flow Rate 4 09/11/23 15:25 BMI result Body Mass Index 22.6 Const: Other: Gen: Awake alert in no acute distress HEENT: blind Neck: supple, no JVD Lungs: clear to auscultation bilaterally Heart: regular rate and rhythm, no murmurs Abd: soft, non-tender, non-distended Ext: s/p R TMA, s/p L foot surgery, dry dressing in place, no drainage Neuro: alert and oriented x3, no focal findings Psych: Appropriate affect Objective Data Active Medications Calcium Carbonate (Calcium Carbonate 750 Mg Tab.Chew) 300 mg PO TIDWM [facility] Last Admin: 09/15/23 08:46 Dose: Not Given Documented By: YOLIS Non-Admin Reason: Off unit: Dialysis Carvedilol (Carvedilol 12.5 Mg Tablet) 12.5 mg PO BID [facility]; Protocol Last Admin: 09/14/23 20:28 Dose: 12.5 mg Documented By: DUANE Diphenhydramine HCl (Diphenhydramine Hcl 25 Mg Capsule) 50 mg PO Q6H PRN PRN Reason: Itching Last Admin: 09/15/23 02:14 Dose: 50 mg Documented By: DUANE Docusate Sodium (Docusate Sodium 100 Mg Capsule) 100 mg PO DAILY PRN PRN Reason: constipation Glucose (Glucose Gel 15 Gm Gel..Gram.) 15 gm PO Q15M PRN; Protocol PRN Reason: per Hypoglycemia Standing Ord. Last Admin: 09/13/23 08:06 Dose: 15 gm Documented By: YOLIS Heparin Sodium (Porcine) (Heparin Sodium,Porcine 5,000 Unit/Ml Vial) 5,000 unit SUBCUT Q12H [facility] Last Admin: 09/15/23 01:33 Dose: Not Given Documented By: DUANE Non-Admin Reason: Patient Refused Hydralazine HCl (Hydralazine Hcl 50 Mg Tablet) 50 mg PO TID [facility]; Protocol Last Admin: 09/14/23 20:27 Dose: 50 mg Documented By: DUANE Hydromorphone HCl (Hydromorphone Hcl 0.5 Mg/0.5 Ml Syringe) 0.5 mg IVPUSH Q4H PRN; Protocol PRN Reason: Pain, Severe (Pain Scale 7-10) Last Admin: 09/15/23 06:17 Dose: 0.5 mg Documented By: DUANE Dextrose (D10) 250 mls @ 750 mls/hr IV Q15M PRN; Protocol PRN Reason: per Hypoglycemia Standing Ord. Last Infusion: 09/11/23 13:04 Dose: Infused Documented By: KARLI Insulin Human Lispro (Insulin Lispro 100 Unit/Ml 3 Ml Vial) 0 unit SUBCUT QIDACHS [facility]; Protocol Last Admin: 09/15/23 08:43 Dose: Not Given Documented By: YOLIS Non-Admin Reason: pt refusing POC Isosorbide Mononitrate (Isosorbide Mononitrate 30 Mg Tab.Er.24h) 30 mg PO DAILY [facility]; Protocol Last Admin: 09/14/23 09:10 Dose: 30 mg Documented By: CHAKA Levetiracetam (Levetiracetam 1,000 Mg Tablet) 1,000 mg PO DAILY [facility] Last Admin: 09/14/23 09:11 Dose: 1,000 mg Documented By: CHAKA Mirtazapine (Mirtazapine 7.5 Mg Tablet) 7.5 mg PO BEDTIME [facility] Last Admin: 09/14/23 20:28 Dose: 7.5 mg Documented By: DUANE Omeprazole (Omeprazole 20 Mg Capsule.Dr) 20 mg PO DAILY@0630 [facility] Last Admin: 09/15/23 06:16 Dose: 20 mg Documented By: DUANE Ondansetron HCl (Ondansetron Hcl 4 Mg/2 Ml Vial) 4 mg IVPUSH Q4H PRN PRN Reason: Nausea and Vomiting Last Admin: 09/14/23 17:07 Dose: 4 mg Documented By: CHAKA Oxycodone HCl (Oxycodone Hcl Immed Release 5 Mg Tablet) 7.5 mg PO Q6H PRN PRN Reason: Pain, Severe (Pain Scale 7-10) Sertraline HCl (Sertraline Hcl 25 Mg Tablet) 25 mg PO DAILY [facility] Last Admin: 09/14/23 09:11 Dose: 25 mg Documented By: CHAKA Sodium Chloride (0.9 % Sodium Chloride Flush 3 Ml Syringe) 3 ml IVFLUSH QSHIFT [facility] Last Admin: 09/15/23 09:22 Dose: Not Given Documented By: YOLIS Non-Admin Reason: Off unit: Dialysis Torsemide (Torsemide 20 Mg Tablet) 40 mg PO BID [facility]; Protocol Last Admin: 09/14/23 20:27 Dose: 40 mg Documented By: DUANE Vitamin D (Cholecalciferol (Vitamin D3) 25 Mcg Tablet) 50 mcg PO DAILY [facility] Last Admin: 09/15/23 09:22 Dose: Not Given Documented By: YOLIS Non-Admin Reason: Patient Refused Labs 09/09/23 03:35 09/11/23 13:39 Labs: Laboratory Results - last 24 hr 09/14/23 09/14/23 10:56 15:40 POC Glucose 110 136 H 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, peripheral arterial disease status post bilateral TMA, poorly controlled hypertension due to noncompliance with medications, chronic hypoxic respiratory failure on 4 L baseline supplemental oxygen, congestive heart failure with reduced ejection fraction, mood disorder, chronic pain with opioid seeking behavior, cardiomyopathy here with left 2nd toe ulcer and hyperkalemia Left 2nd toe necrosis no acute complaints good pain control, chronic nausea s/p iv doxycycline and Zosyn 09/08 to 09/11 left foot x-ray no evidence of osteo with recent MRI also neg Seen by General surgery status post ray amputation 2nd 3rd and 4th toes left foot POD # 4 /dressing changed by General surgery surgery recommends left foot protective weight-bearing as tolerated,and daily dry dressings. Plantar callus ulcer appears clean, surgery recommend silver alginate to ulcer place and Xeroform to amputation site followed by fluffs blood cultures neg after 48 hrs Follow PT eval/DC IV narcotics Patient lives at home with sister, has 48 hour BC had, ambulate short distances with assistance ,otherwise mostly wheelchair bound, refusing rehab, likely discharge home with services. Hyperkalemia associated with metabolic acidosis secondary to ESRD + noncompliance with hemodialysis. potassium improved to 4.2 ESRD on HD Continue hemodialysis, refusing labs Uncontrolled hypertension. BP stable today, Continue Coreg, Hydralazine , isosorbide Type 2 diabetes mellitus. Stable blood sugars, refusing point of care, no recurrent episode of hypoglycemia tolerating diet, discussed importance of blood sugar monitoring . Continue diabetic diet and Insulin sliding scale. Mood disorder. Continue sertraline. HFrEF Continue diuretics, carvedilol and hemodialysis. CAD. Continue aspirin, Imdur and carvedilol. Chronic pain with opiate seeking behavior. Chronic anemia. Close to baseline, Above transfusion threshold, follow CBC Code status: Full DVT prophylaxis: heparin Patient will need continued inpatient hospitalization for close monitoring of left foot wound post surgery and safe disposition. Quality Stroke Does the patient have a stroke diagnosis?: No VTE Prior VTE?: No VTE Risk Level:: Medical - moderate - high VTE Device Contraindication: Treatment Not Indicated VTE Drug Contraindication: N/A - Med Ordered
[2023-09-15 12:00] VITALS: BP 154/94; PULSE 79; RESP 18; TEMP 36.4; O2SAT 98
--- NOTE | 2023-09-15 12:24 | PC.NURSE ---
patient refusing all scheduled meds and point of care checks. Patient educated on significance of med compliance but continues to refuse. MD notified.
[2023-09-15] MEDS: oxyCODONE HCl Immed Release 5 MG TABLET 7.5 MG PO (12:41)
[2023-09-15] MEDS: Calcium Carbonate 750 MG TAB.CHEW 300 MG PO (12:42)
[2023-09-15 16:00] VITALS: BP 123/67; PULSE 77; RESP 18; TEMP 36.6; O2SAT 98
[2023-09-15 17:02] LABS: Glucose, Whole Blood 108 mg/dL (60-115)
[2023-09-15 18:08] VITALS: BP 123/67
[2023-09-16] VITALS: BP 165/75; PULSE 80; RESP 20; TEMP 36.5; O2SAT 98
[2023-09-16] MEDS: diphenhydrAMINE HCL 25 MG CAPSULE 50 MG PO ×3 (01:57→17:59)
[2023-09-16] MEDS: oxyCODONE HCl Immed Release 5 MG TABLET 7.5 MG PO ×3 (01:58→17:55)
--- NOTE | 2023-09-16 05:21 | PC.NURSE ---
Refused all night meds.States will only take meds if she get her iv Dilaudid. Dr Sewell make aware. Patient educated on the importance of meds to health.Verbalized understanding.
[2023-09-16 07:32] VITALS: BP 150/88; PULSE 78; RESP 18; TEMP 36.2; O2SAT 100
[2023-09-16 08:04] LABS: Glucose, Whole Blood 101 mg/dL (60-115)
[2023-09-16] MEDS: Isosorbide Mononitrate 30 MG TAB.ER.24H PO (10:14)
[2023-09-16] MEDS: hydrALAZINE HCl 50 MG TABLET PO (10:14)
[2023-09-16] MEDS: levETIRAcetam 1,000 MG TABLET 1000 MG PO (10:15)
[2023-09-16] MEDS: Calcium Carbonate 750 MG TAB.CHEW 300 MG PO ×2 (10:15→18:03)
[2023-09-16] MEDS: Sertraline HCL 25 MG TABLET PO (10:15)
[2023-09-16] MEDS: carvediloL 12.5 MG TABLET PO (10:15)
[2023-09-16] MEDS: Torsemide 20 MG TABLET 40 MG PO (10:15)
[2023-09-16 11:16] VITALS: BP 150/80; PULSE 80; RESP 18; TEMP 36.4; O2SAT 99
[2023-09-16 11:22] LABS: Glucose, Whole Blood 130 mg/dL (60-115)
--- NOTE | 2023-09-16 12:02 | HO.PM.IMPN ---
Subjective Subjective Date of Service: 09/16/23 Interval History: Being followed for left foot infection. Refusing medications, denies pain, no other acute issues overnight, tolerating diet , no fevers. Review of Systems All other system reviewed and are negative. Physical Exam Vital Signs: Vital Signs: Last Vital Signs Temp 97.5 F 09/16/23 11:16 Pulse 80 09/16/23 11:16 Resp 18 09/16/23 11:16 BP 150/80 H 09/16/23 11:16 Pulse Ox 99 09/16/23 11:16 O2 Del Method Room Air 09/16/23 11:16 O2 Flow Rate 4 09/11/23 15:25 BMI result Body Mass Index 22.6 Const: Other: Gen: Awake alert in no acute distress HEENT: blind Neck: supple, no JVD Lungs: clear to auscultation bilaterally Heart: regular rate and rhythm, no murmurs Abd: soft, non-tender, non-distended Ext: s/p R TMA, s/p L foot surgery, dry dressing in place, no drainage Neuro: alert and oriented x3, no focal findings Psych: Appropriate affect Objective Data Active Medications Calcium Carbonate (Calcium Carbonate 750 Mg Tab.Chew) 300 mg PO TIDWM [facility] Last Admin: 09/16/23 10:15 Dose: 300 mg Documented By: YOLIS Carvedilol (Carvedilol 12.5 Mg Tablet) 12.5 mg PO BID [facility]; Protocol Last Admin: 09/16/23 10:15 Dose: 12.5 mg Documented By: YOLIS Diphenhydramine HCl (Diphenhydramine Hcl 25 Mg Capsule) 50 mg PO Q6H PRN PRN Reason: Itching Last Admin: 09/16/23 10:16 Dose: 50 mg Documented By: YOLIS Docusate Sodium (Docusate Sodium 100 Mg Capsule) 100 mg PO DAILY PRN PRN Reason: constipation Glucose (Glucose Gel 15 Gm Gel..Gram.) 15 gm PO Q15M PRN; Protocol PRN Reason: per Hypoglycemia Standing Ord. Last Admin: 09/13/23 08:06 Dose: 15 gm Documented By: YOLIS Heparin Sodium (Porcine) (Heparin Sodium,Porcine 5,000 Unit/Ml Vial) 5,000 unit SUBCUT Q12H [facility] Last Admin: 09/16/23 01:09 Dose: Not Given Documented By: DUANE Non-Admin Reason: Patient Refused Hydralazine HCl (Hydralazine Hcl 50 Mg Tablet) 50 mg PO TID [facility]; Protocol Last Admin: 09/16/23 10:14 Dose: 50 mg Documented By: YOLIS Dextrose (D10) 250 mls @ 750 mls/hr IV Q15M PRN; Protocol PRN Reason: per Hypoglycemia Standing Ord. Last Infusion: 09/11/23 13:04 Dose: Infused Documented By: KARLI Insulin Human Lispro (Insulin Lispro 100 Unit/Ml 3 Ml Vial) 0 unit SUBCUT QIDACHS [facility]; Protocol Last Admin: 09/16/23 11:34 Dose: Not Given Documented By: YOLIS Non-Admin Reason: No Insulin Coverage Isosorbide Mononitrate (Isosorbide Mononitrate 30 Mg Tab.Er.24h) 30 mg PO DAILY [facility]; Protocol Last Admin: 09/16/23 10:14 Dose: 30 mg Documented By: YOLIS Levetiracetam (Levetiracetam 1,000 Mg Tablet) 1,000 mg PO DAILY [facility] Last Admin: 09/16/23 10:15 Dose: 1,000 mg Documented By: YOLIS Mirtazapine (Mirtazapine 7.5 Mg Tablet) 7.5 mg PO BEDTIME [facility] Last Admin: 09/16/23 00:25 Dose: Not Given Documented By: DUANE Non-Admin Reason: Patient Refused Omeprazole (Omeprazole 20 Mg ) 20 mg PO DAILY@0630 [facility] Last Admin: 09/16/23 05:21 Dose: Not Given Documented By: DUANE Non-Admin Reason: Patient Refused Ondansetron HCl (Ondansetron Hcl 4 Mg/2 Ml Vial) 4 mg IVPUSH Q4H PRN PRN Reason: Nausea and Vomiting Last Admin: 09/14/23 17:07 Dose: 4 mg Documented By: CHAKA Oxycodone HCl (Oxycodone Hcl Immed Release 5 Mg Tablet) 7.5 mg PO Q6H PRN PRN Reason: Pain, Severe (Pain Scale 7-10) Last Admin: 09/16/23 10:14 Dose: 7.5 mg Documented By: YOLIS Sertraline HCl (Sertraline Hcl 25 Mg Tablet) 25 mg PO DAILY [facility] Last Admin: 09/16/23 10:15 Dose: 25 mg Documented By: YOLIS Sodium Chloride (0.9 % Sodium Chloride Flush 3 Ml Syringe) 3 ml IVFLUSH QSHIFT [facility] Last Admin: 09/16/23 11:33 Dose: Not Given Documented By: YOLIS Non-Admin Reason: Patient Refused Torsemide (Torsemide 20 Mg Tablet) 40 mg PO BID [facility]; Protocol Last Admin: 09/16/23 10:15 Dose: 40 mg Documented By: YOLIS Vitamin D (Cholecalciferol (Vitamin D3) 25 Mcg Tablet) 50 mcg PO DAILY [facility] Last Admin: 09/16/23 10:18 Dose: Not Given Documented By: YOLIS Non-Admin Reason: Patient Refused Labs 09/09/23 03:35 09/11/23 13:39 Labs: Laboratory Results - last 24 hr 09/15/23 09/16/23 09/16/23 16:51 08:00 11:18 POC Glucose 108 101 130 H 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, peripheral arterial disease status post bilateral TMA, poorly controlled hypertension due to noncompliance with medications, chronic hypoxic respiratory failure on 4 L baseline supplemental oxygen, congestive heart failure with reduced ejection fraction, mood disorder, chronic pain with opioid seeking behavior, cardiomyopathy here with left 2nd toe ulcer and hyperkalemia Left 2nd toe necrosis no acute complaints good pain control, chronic nausea s/p iv doxycycline and Zosyn 09/08 to 09/11 left foot x-ray no evidence of osteo with recent MRI also neg Seen by General surgery status post ray amputation 2nd 3rd and 4th toes left foot POD # 4 /dressing changed by General surgery surgery recommends left foot protective weight-bearing as tolerated,and daily dry dressings. Plantar callus ulcer appears clean, surgery recommend silver alginate to ulcer place and Xeroform to amputation site followed by fluffs blood cultures neg after 48 hrs Patient lives at home with sister, has 48 hour BC had, ambulate short distances with assistance ,otherwise mostly wheelchair bound, refusing rehab Seen by PT for foot offloading boot given, patient refused to participate with physical therapy. Possible discharge at a.m. with services. Hyperkalemia associated with metabolic acidosis secondary to ESRD + noncompliance with hemodialysis. potassium improved to 4.2 ESRD on HD Continue hemodialysis, refusing labs Uncontrolled hypertension. BP stable today, Continue Coreg, Hydralazine , isosorbide Type 2 diabetes mellitus. Stable blood sugars, refusing point of care, no recurrent episode of hypoglycemia tolerating diet, discussed importance of blood sugar monitoring . Continue diabetic diet and Insulin sliding scale. Mood disorder. Continue sertraline. HFrEF Continue diuretics, carvedilol and hemodialysis. CAD. Continue aspirin, Imdur and carvedilol. Chronic pain with opiate seeking behavior. Chronic anemia. Close to baseline, Above transfusion threshold, follow CBC Code status: Full DVT prophylaxis: heparin Patient will need continued inpatient hospitalization for close monitoring of left foot wound post surgery and safe disposition. Quality Stroke Does the patient have a stroke diagnosis?: No VTE Prior VTE?: No VTE Risk Level:: Medical - moderate - high VTE Device Contraindication: Treatment Not Indicated VTE Drug Contraindication: N/A - Med Ordered
[2023-09-16 15:44] VITALS: BP 150/70; PULSE 81; RESP 17; TEMP 36.2; O2SAT 99
[2023-09-16 16:18] LABS: Glucose, Whole Blood 116 mg/dL (60-115)
[2023-09-16 20:00] VITALS: BP 152/71; PULSE 85; RESP 16; TEMP 36.6; O2SAT 99
[2023-09-16 21:15] LABS: Glucose, Whole Blood 125 mg/dL (60-115)
[2023-09-17] VITALS (7 sets, daily range): BP systolic 128–152; BP diastolic 64–83; PULSE 65–80; RESP 16–18; TEMP 36.3–37.2; O2SAT 96–98
[2023-09-17] MEDS: diphenhydrAMINE HCL 25 MG CAPSULE 50 MG PO ×2 (00:39→08:51)
[2023-09-17] MEDS: oxyCODONE HCl Immed Release 5 MG TABLET 7.5 MG PO ×3 (00:40→15:38)
[2023-09-17 07:28] LABS: Glucose, Whole Blood 92 mg/dL (60-115)
[2023-09-17] MEDS: hydrALAZINE HCl 50 MG TABLET PO ×2 (08:49→15:43)
[2023-09-17] MEDS: Omeprazole 20 MG CAPSULE.DR PO (08:49)
[2023-09-17] MEDS: Isosorbide Mononitrate 30 MG TAB.ER.24H PO (08:49)
[2023-09-17] MEDS: Calcium Carbonate 750 MG TAB.CHEW 300 MG PO ×2 (08:49→13:04)
[2023-09-17] MEDS: Torsemide 20 MG TABLET 40 MG PO (08:50)
[2023-09-17] MEDS: levETIRAcetam 1,000 MG TABLET 1000 MG PO (08:51)
[2023-09-17] MEDS: carvediloL 12.5 MG TABLET PO (08:51)
[2023-09-17] MEDS: 0.9 % Sodium Chloride Flush 3 ML SYRINGE IVFLUSH (08:52)
--- NOTE | 2023-09-17 12:53 | PM.DS ---
DS: Providers Provider Date of Service: 09/17/23 Date of admission: 09/08/23 23:51 Primary care physician: Abdon Beard MD Consults: 09/09/23 00:07 Consult to Nephrology Routine Consulting Provider: [facility] Reason for consultation: Inpatient HD, missed multiple HD sessions Has provider been notified: No 09/09/23 01:37 Consult to Vascular Surgery Routine Consulting Provider: [facility] [place] Vascular Services Reason for consultation: Left 2nd toe necrosis Has provider been notified: No DS: Diagnosis Discharge Diagnosis (1) Ulcer of left second toe: Status: Acute (2) Acute hyperkalemia: Status: Acute DS: Summary Hospital Course Hospital Course: History of presenting illness: Date of Service: 09/08/23 Attending physician on admission: Lele Maria Chief Complaint: Some blood coming out from my left foot Shereen Taylor is a 33 years old woman with past medical history significant for ESRD on HD, multiple hospitalizations due to noncompliance with hemodialysis, diabetic retinopathy with blindness, peripheral vascular disease (s/p bilat transmetatarsal amputation), poorly controlled hypertension due to noncompliance with medications, chronic respiratory failure on supplemental oxygen, HFrEF, mood disorder, chronic pain with opiate seeking behavior presents to the ED after her sister noted there was blood coming out from her left 2rd toe which is also turning black. She denied associated pain, fever or chills. She also said that she missed her hemodialysis session last week because she was attending her wound few neuro services. She was admitted at the beginning of the month with diagnosis of diabetic foot infection with nonhealing ulcer and purulent cellulitis due to noncompliant of p.o. antibiotics as an outpatient. During this last hospitalization she was treated with Zosyn and doxycycline. An MRI was performed showed no osteomyelitis or abscess. General surgery performed bedside debridement. Vascular surgery felt the patient will not benefit from vascular intervention but may need BKA in the future. In the ED today, she was found to have significant hypertension (max 195/112; most recent 170/105). Blood workup showed no leukocytosis. Hemoglobin is at baseline. There is hyperkalemia of 6.5 (most recent 5.5), bicarb is 12, venous pH is 7.26. ED tx: Furosemide 80 mg p.o., Coreg 12.5 mg PO, calcium gluconate 2 g IV, Lasix 100 mg IV, Lokelma 10 g p.o., bicarb 50 mg IV, Dilaudid 2 mg IV, labetalol 40 mg IV. 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, peripheral arterial disease status post bilateral TMA, poorly controlled hypertension due to noncompliance with medications, chronic hypoxic respiratory failure on 4 L baseline supplemental oxygen, congestive heart failure with reduced ejection fraction, mood disorder, chronic pain with opioid seeking behavior, cardiomyopathy here with left 2nd toe ulcer and hyperkalemia Admitted to intermediate care unit with a diagnosis of Left 2nd toe necrosis, treated with IV Zosyn and doxycycline,left foot x-ray showed no evidence of osteo myelitis with recent MRI also negative,Seen by General surgery Dr. Rajput and underwent ray amputation 2nd, 3rd and 4th toes left foot , tolerated procedure well, antibiotic discontinued post surgery, patient followed closely by General surgery they recommends left foot protective weight-bearing as tolerated, in regard to Plantar callus ulcer appears clean, surgery recommend silver alginate to ulcer and Xeroform to amputation site followed by fluffs, blood cultures neg after 48 hrs , Patient lives at home with sister, has 48 hour [employer], ambulate short distances with assistance ,otherwise mostly wheelchair bound, ,Seen by PT they provided Left foot offloading boot , patient is being discharged home with services, oxycodone 7.5 mg q.6 hours (oxycodone 5mg total number 30 dispensed). End-stage renal disease noted to have Hyperkalemia associated with metabolic acidosis secondary to ESRD + noncompliance treated with hemodialysis potassium improved. Uncontrolled hypertension, likely due to noncompliance treated with Coreg, isosorbide and hydralazine added, blood pressure stabilized, recommend compliance with home medication. Type 2 diabetes mellitus noted to have stable blood sugars, cont. point of care blood sugars monitoring, recommend to continue diabetic diet,insulin sliding scale and blood sugar monitoring as before. Mood disorder. Continue sertraline. History of coronary artery disease and HFrEF recommend to continue aspirin, Imdur, Coreg and diuretics Time Attestation Discharge Coordination Time (in mins): 40 Quality: Safe Use of Opioids Does Pt have an Active Cancer Diagnosis on the Problem List?: No Quality: Stroke Does the patient have a stroke diagnosis?: No Physical Exam Vital Signs: Vital Signs: Last Vital Signs Temp 97.3 F 09/17/23 11:56 Pulse 65 09/17/23 11:56 Resp 18 09/17/23 11:56 BP 128/64 09/17/23 11:56 Pulse Ox 96 09/17/23 11:56 O2 Del Method Room Air 09/17/23 11:56 O2 Flow Rate 4 09/11/23 15:25 BMI result Body Mass Index 22.6 Const: Other: Gen: Awake alert in no acute distress HEENT: blind Neck: supple, no JVD Lungs: clear to auscultation bilaterally Heart: regular rate and rhythm, no murmurs Abd: soft, non-tender, non-distended Ext: s/p R TMA, s/p L foot Ray surgery, dry dressing in place, no drainage Neuro: alert and oriented x3, no focal findings. Psych: Appropriate affect DS: Data Data Completed and Pending Completed studies during hospitalization [Text1]: Procedures Detachment at Right Foot, Partial 1st Ray, Open Approach (03/01/20) Detachment at Right Foot, Partial 2nd Ray, Open Approach (03/01/20) Detachment at Right Foot, Partial 3rd Ray, Open Approach (03/01/20) Detachment at Right Foot, Partial 4th Ray, Open Approach (03/01/20) Detachment at Right Foot, Partial 5th Ray, Open Approach (03/01/20) Drainage of Right Pleural Cavity, Percutaneous Approach (01/14/21) Excision of Left Foot Skin, External Approach (08/27/23) Excision of Right Foot Skin, External Approach (08/27/23) Excision of Stomach, Pylorus, Via Natural or Artificial Opening Endoscopic, Diagnostic (08/27/22) Fluoroscopy of Superior Vena Cava, Guidance (08/14/22) Insertion of Infusion Device into Right Atrium, Percutaneous Approach (08/14/22) Insertion of Infusion Device into Superior Vena Cava, Percutaneous Approach (01/14/21) Insertion of Infusion Device into Upper Vein, Percutaneous Approach (08/27/23) Insertion of Tunneled Vascular Access Device into Chest Subcutaneous Tissue and Fascia, Percutaneous Approach (08/14/22) Performance of Urinary Filtration, Intermittent, Less than 6 Hours Per Day (08/27/23) Removal of Infusion Device from Great Vessel, External Approach (01/14/21) Transfusion of Nonautologous Red Blood Cells into Peripheral Vein, Percutaneous Approach (04/22/22) Pending studies at discharge: Pending at discharge 09/11/23 14:46 Surgical [PTH] Routine Labs on day of discharge: Laboratory Results - last 24 hr 09/16/23 09/16/23 09/17/23 15:46 21:00 07:25 POC Glucose 116 H 125 H 92 Discharge Plan Discharge Anticipated Discharge Date/Time: 09/17/23 12:45 Patient Disposition: Home Health Service Discharge Diagnosis: Left 2nd toe necrosis status post amputation Hyperkalemia Uncontrolled hypertension Referrals: [facility] Wound Care Management [Provider Group] - 1 Week Abdon Beard MD [Primary Care Provider] - 1 Week Tu Rajput MD [Physician] - 2 Weeks Discharge Medications: New hydralazine 50 mg Tablet 50 mg PO TID Qty: 90 0RF Protocol: Hold for SBP< HOLD for SBP < : 90 oxycodone 5 mg Tablet 7.5 mg PO Q6H PRN (Reason: Pain, Severe (Pain Scale 7-10)) Qty: 30 0RF Rx Instructions: Partial Fill upon patient request. Continued (DME) off loading boot Kit See Rx Instructions .Route Qty: 1 0RF Rx Instructions: As directed carvedilol 12.5 mg tablet 12.5 mg PO BID torsemide 20 mg tablet 40 mg PO BID isosorbide mononitrate 30 mg tablet extended release 24 hr 30 mg PO DAILY docusate sodium 100 mg capsule 100 mg PO DAILY PRN (Reason: constipation) oxycodone 5 mg tablet 5 mg PO TID PRN (Reason: Pain) levetiracetam 1,000 mg tablet 1,000 mg PO DAILY mirtazapine 7.5 mg Tablet 7.5 mg PO BEDTIME Qty: 90 0RF sertraline 25 mg Tablet 25 mg PO DAILY Qty: 30 0RF cholecalciferol (vitamin D3) 50 mcg (2,000 unit) capsule 50 mcg PO DAILY Calcium Antacid 300 mg (750 mg) tablet,chewable 1 tab PO TIDWM omeprazole 20 mg capsule,delayed release(DR/EC) 20 mg PO DAILY@0630 Discontinued doxycycline monohydrate 100 mg Capsule 100 mg PO Q12H Qty: 14 0RF Rx Instructions: END DATE: 09/10/23 @0900 Discharge Orders: Discharge Order (Routine); Ordered 09/17/23 Ordered By: Scarlet Arora Diet: Diabetic diet Activity on Discharge: No Contact sports Stand Alone Forms: Patient Portal Discharge page Print Language: Mauritian Activity Restrictions/Additional Instructions: Fluffs followed by kerlix and gisela wrap to amputation site. Silver alginate to ulcer base followed by 4x4 or fluffs. Change daily and as needed. Can ambulate or forefoot with offloading shoe as tolerated. F/u in office in 2 weeks for suture removal. Patient primarily wheelchair level and assess from sister forefoot offloading shoe for left lower extremity provided. Care Plan Goals: Continue all blood pressure medications as prescribed Health Concerns: Diabetes mellitus /uncontrolled blood pressure/diabetic foot ulcer Plan of Treatment: Follow-up with general surgery call office for appointment in 2 weeks Follow-up for hemodialysis as before Assessment: As above
[2023-09-17 13:10] LABS: Glucose, Whole Blood 144 mg/dL (60-115)
--- NOTE | 2023-09-17 13:33 | MHC.CM.PN ---
Second IMM 09/17/23, Pt has been medically cleared for DC, referrals out to the VNAs that accept her insurance, family to provide transport, pt to resume [employer] and HD services.
--- NOTE | 2023-09-17 13:36 | W.MHC.F2F ---
Service Date Service Date: 09/17/23 Encounter Date of encounter: 09/17/23 Reasons for Services Signs and symptoms assessed: Uncontrolled hypertension/diabetes bilateral foot wounds Reason for retirement: wound care, diabetic teaching and medication management Reason for physical therapy: home safety and mobility and gait/transfer training Homebound: Leaving the home is medically contraindicated at this time without the asist of a device and/or another person due th the listed conditions above and below. Reason homebound: weakness related to hospital stay and non-weight bearing Certification: Based on the above findings, I certify that this patient is confined to the home and needs intermittent retirement care, physical therapy and/or speech therapy, or continues to need occupational therapy. The patient is under my care, and I have initiated the establishment of the plan of care. The patient will be followed by a physician who will periodically review the plan of care. Time Spent With Patient Time: Total time managing care of this patient today ____ minutes.
--- NOTE | 2023-09-17 14:59 | PM.PNNEP ---
Subjective Subjective Date of Service: 09/17/23 Interval history: Seen and examined, events noted C/O pain at surg sites Physical Exam Vital Signs: Vital Signs: Last Vital Signs Temp 97.3 F 09/17/23 11:56 Pulse 65 09/17/23 11:56 Resp 18 09/17/23 11:56 BP 128/64 09/17/23 11:56 Pulse Ox 96 09/17/23 11:56 O2 Del Method Room Air 09/17/23 11:56 O2 Flow Rate 4 09/11/23 15:25 BMI result Body Mass Index 22.6 Const: Other: Undergoing hemodialysis General: cooperative, comfortable, no acute distress, alert and awake Nutritional Appearance: average body habitus Orientation/consciousness: patient oriented x3 HEENT: Head: Yes normocephalic and Yes atraumatic Neck: Neck: Yes supple Resp: Effort & Inspection: normal respiratory effort, able to speak in complete sentences, no respiratory distress and no use of accessory muscles Auscultation: clear to auscultation bilaterally Cardio: Rate: regular rate Heart sounds: S1 normal heart sound present and S2 normal heart sound present GI: Inspection: No distended Palpation (GI): Soft to palpation, not firm and nontender Neuro: General: patient oriented x3, moves all extremities and CN's II-XI intact bilaterally Extrem: Other: Discoloratio of the 3rd toe on the left, tender to touch, no cellulitis or evidence of any ischemia of the skin on the rest of the foot General: Yes no pedal edema Objective Data Labs 09/09/23 03:35 09/11/23 13:39 Labs: Laboratory Results - last 24 hr 09/16/23 09/16/23 09/17/23 15:46 21:00 07:25 POC Glucose 116 H 125 H 92 09/17/23 13:04 POC Glucose 144 H Microbiology Microbiology Results: Microbiology 09/09/23 03:36 Blood - Venous Blood Culture - Final No growth after 5 days. 09/09/23 03:35 Blood - Venous Blood Culture - Final No growth after 5 days. 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 Progress Note: Quality Stroke Does the patient have a stroke diagnosis?: No
[2023-09-17 15:33] LABS: Anion Gap 16 (12-20); Carbon Dioxide 21 mmol/L (22-29); Chloride 100 mmol/L (96-108); Potassium 4.5 mmol/L (3.3-5.1); Sodium 132 mmol/L (135-145)
[2023-09-17 15:52] LABS: Glucose, Whole Blood 114 mg/dL (60-115)
== END 2023-09-17 17:44 | disposition home health service (06) | DRG 255 ==
LOC: HO.ED 19:07 → HO.EDOVER 09-09 00:02 → HO.IMC 09-09 01:06
PROVIDERS: Anesthesiology; Internal Medicine Nephrology; Nurse Practitioner; Nurse Practitioner Acute Care; Physician Assistant Medical; Surgery; Admitting Provider Internal Medicine; Emergency Provider Internal Medicine; PCP Internal Medicine; Visit Provider Hospitalist
PROC: 0Y6S0Z0 Detachment at Left 2nd Toe, Complete, Open Approach (ICD-10-PCS; principal; 2023-09-11 13:00)
DX: E11.52 Type 2 diabetes mellitus with diabetic peripheral angiopathy with gangrene (principal); N18.6 End stage renal disease; J96.11 Chronic respiratory failure with hypoxia; I13.2 Hypertensive heart and chronic kidney disease with heart failure and with stage 5 chronic kidney disease, or end stage renal disease; I50.22 Chronic systolic (congestive) heart failure; E87.21 Acute metabolic acidosis; I42.9 Cardiomyopathy, unspecified; L97.429 Non-pressure chronic ulcer of left heel and midfoot with unspecified severity; E11.42 Type 2 diabetes mellitus with diabetic polyneuropathy; H54.8 Legal blindness, as defined in USA; E11.649 Type 2 diabetes mellitus with hypoglycemia without coma; I25.10 Atherosclerotic heart disease of native coronary artery without angina pectoris; G89.29 Other chronic pain; D63.1 Anemia in chronic kidney disease; E11.621 Type 2 diabetes mellitus with foot ulcer; L97.529 Non-pressure chronic ulcer of other part of left foot with unspecified severity; F39 Unspecified mood [affective] disorder; E87.5 Hyperkalemia; E11.22 Type 2 diabetes mellitus with diabetic chronic kidney disease; Z76.5 Malingerer [conscious simulation]; Z99.2 Dependence on renal dialysis; Z99.3 Dependence on wheelchair; Z91.158 Patient's noncompliance with renal dialysis for other reason; Z99.81 Dependence on supplemental oxygen; Z91.148 Patient's other noncompliance with medication regimen for other reason; Z79.899 Other long term (current) drug therapy
CPT/HCPCS: 36415; 71045; 73620; 80048; 80051; 80053; 82803; 82947; 84702; 85025; 86140; 87040; 88305; 88311; 90935; 90999; 93005; 97162; 99285; J0131; J0613; J0690; J1170; J1920; J1940; J2405; J2543; J2795

== ENCOUNTER → 2023-09-08 20:09 | Outpatient (BNV) | payer OTHER, SELFPAY | PROVIDERS: Admitting Provider Internal Medicine; Emergency Provider Internal Medicine; Visit Provider Internal Medicine Cardiovascular Disease | DX: R94.31 Abnormal electrocardiogram [ECG] [EKG] (principal) | CPT/HCPCS: 93010 ==

== ENCOUNTER → 2023-09-08 23:51 | Outpatient (BNV) | payer OTHER, SELFPAY | PROVIDERS: Admitting Provider Internal Medicine; Emergency Provider Internal Medicine; Visit Provider Surgery | DX: I96 Gangrene, not elsewhere classified (principal); E11.621 Type 2 diabetes mellitus with foot ulcer; L97.529 Non-pressure chronic ulcer of other part of left foot with unspecified severity | CPT/HCPCS: 28810; 99024; 99222; 99232 ==

== ENCOUNTER → 2023-09-08 23:51 | Outpatient (BNV) | payer OTHER, SELFPAY | PROVIDERS: Admitting Provider Internal Medicine; Emergency Provider Internal Medicine; Visit Provider Internal Medicine | DX: E11.621 Type 2 diabetes mellitus with foot ulcer (principal); L97.529 Non-pressure chronic ulcer of other part of left foot with unspecified severity; E87.5 Hyperkalemia; N18.6 End stage renal disease | CPT/HCPCS: 99223; 99232; 99233; 99239; G0180 ==

== ENCOUNTER 2023-10-01 14:54 | Outpatient (AMB) | payer OTHER, SELFPAY ==
--- NOTE | 2023-10-01 14:56 | A.OFFVIS_ITS ---
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 She tolerated procedure well. She currently denies significant complaints. She has end-stage renal disease and undergoes dialysis twice a week. [facility] Medical History ESRD (end stage renal disease) Hyperkalemia Metabolic acidosis Renal failure Major depressive disorder, single episode, severe Non-compliance with renal dialysis Hypertensive urgency MDD (major depressive disorder) Hypertension Anemia MDD (major depressive disorder), recurrent episode End-stage renal disease (ESRD) Foot ulcer CKD (chronic kidney disease) Hypertension Diabetic foot Vomiting Renal failure Hypertension HFrEF (heart failure with reduced ejection fraction) ESRD on dialysis Migraine Diabetic foot ulcer associated with type 2 diabetes mellitus Chronic pain Gastroparesis Non-compliance with renal dialysis Hypertensive emergency Diabetes ESRD needing dialysis Cardiomyopathy delivery delivered Anemia in chronic kidney disease (CKD) CKD (chronic kidney disease) Headache, migraine Abnormal finding on echocardiogram Elevated troponin Chest pain Acute worsening of stage 3 chronic kidney disease Generalized edema Sepsis Cellulitis Pleural effusion CHF (congestive heart failure) (~06/07/22) Tachycardia Atypical chest pain Bone infection PAD (peripheral artery disease) Severe anemia Cellulitis and abscess of foot DM foot ulcer Osteomyelitis Asthma Depression with anxiety Diabetic retinopathy Type 2 diabetes mellitus with hyperglycemia, with long-term current use of ins ulin Blind right eye Diabetes Back pain Surgical History Hx of surgical procedure (~09/11/23) 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 Family History Mother Coronary artery disease Myocardial infarction Stroke Diabetes mellitus Father Myocardial infarction Social History Household Members: Family Household Members Other:: sister Housing: Apartment Do you presently have visiting nurse or other home services: No Unable to assess alcohol history related to: Unknown Alcohol intake: never 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 Patient Tobacco Use Status: Never used Tobacco e-Cigarette/Vaping Use: Never Used Second Hand Smoke Exposure: No Advance Directives Date on File: 03/08/20 service: No Current occupational status: unemployed and disabled Gender identity: Female Female Reproductive History Menstrual Age of Menarche: 8 Review of Systems Const Denies chills and Denies fever(s) Card Denies chest pain at rest Resp Denies cough GI Denies abdominal pain Physical Exam Const Other: On wheelchair General: comfortable and no acute distress Resp Effort & Inspection: normal respiratory effort Extrem Other: Amputation site is healing well, sutures intact, no signs of infection Assessment & Plan Assessment & Plan (1) Diabetic foot infection: Code(s): E11.628 - Type 2 diabetes mellitus with other skin complications; L08.9 - Local infection of the skin and subcutaneous tissue, unspecified Category: Medical Plan: Status post amputation of the 2nd, 3rd and 4th toes. I removed all her sutures. The wound edges remained well apposed. I applied Steri-Strips on the wound I advised her to avoid putting weight on her forefoot another week or 2. She can otherwise follow up on a p.r.n. basis. Coding Level of Care Code Global (57891) Diagnoses Diabetic foot infection E11.628; L08.9
== END 2023-10-01 15:07 | disposition home or self-care (01) ==
PROVIDERS: PCP Internal Medicine; Visit Provider Surgery
DX: E11.628 Type 2 diabetes mellitus with other skin complications (principal); L08.9 Local infection of the skin and subcutaneous tissue, unspecified
CPT/HCPCS: 99024

== ENCOUNTER → 2023-10-01 14:54 | Outpatient (BNVA) | payer OTHER, SELFPAY | PROVIDERS: PCP Internal Medicine; Visit Provider Surgery | DX: E11.628 Type 2 diabetes mellitus with other skin complications (principal); L08.9 Local infection of the skin and subcutaneous tissue, unspecified; Z09 Encounter for follow-up examination after completed treatment for conditions other than malignant neoplasm; Z89.422 Acquired absence of other left toe(s); Z89.421 Acquired absence of other right toe(s) | CPT/HCPCS: 99212 ==

== ENCOUNTER 2023-10-01 23:19 | Emergency (ER) | payer OTHER, SELFPAY ==
--- NOTE | ~2023-10-01 | XR_ITS ---
EXAMINATION: XR CHEST CLINICAL INFORMATION: Shortness of breath and cough. COMPARISON: 09/08/2023 TECHNIQUE: Frontal view of the chest was obtained. FINDINGS: The lung volumes are low. The cardiac silhouette is enlarged but stable. A dual-lumen central catheter is noted in a stable position. There is no focal lung consolidation or pleural effusion. The bony structures and soft tissues are unremarkable. XR/XR chest 1V IMPRESSION: Stable enlargement of the cardiac silhouette. No evidence for active cardiopulmonary disease.
[2023-10-01 23:32] VITALS: BP 191/120; BP 204/114; PULSE 107; PULSE 112; RESP 19; TEMP 36.7; O2SAT 96; O2SAT 98; BMI 31.7
--- NOTE | 2023-10-01 23:35 | ECG_ITS ---
Test Reason : HYPERTENSION Blood Pressure : / mmHG Vent. Rate : 105 BPM Atrial Rate : 105 BPM P-R Int : 152 ms QRS Dur : 146 ms QT Int : 410 ms P-R-T Axes : 066 -30 041 degrees QTc Int : 541 ms Sinus tachycardia Possible Left atrial enlargement Left axis deviation Right bundle branch block Abnormal ECG When compared with ECG of 08-SEP-2023 20:25, Nonspecific T wave abnormality now evident in Anterior leads Referred By: Generic ED Physician Electronically Signed By:HATTIE BAÑUELOS MD
--- NOTE | 2023-10-01 23:44 | ED.GENADULT ---
HPI - General Adult General Chief complaint: General Medical Stated complaint: SOB Time Seen by Provider: 10/01/23 23:44 Source: patient and EMS Mode of arrival: EMS Limitations: no limitations History of Present Illness ED Provider: mercedes CARRION narrative: Patient is a 33 years old woman with past medical history significant for ESRD on HD, multiple hospitalizations due to noncompliance with hemodialysis, diabetic retinopathy with blindness, peripheral vascular disease (s/p bilat transmetatarsal amputation), poorly controlled hypertension due to noncompliance with medications, chronic respiratory failure on supplemental oxygen, HFrEF, mood disorder, chronic pain with opiate seeking behavior patient is admitted on 09/08 had amputation of left 2nd 3rd and 4th toe comes here as not feeling well since yesterday vomiting coughing noted to have high blood pressure 191/120 on arrival patient's coughing and then vomiting patient does get dialysis twice a week Mondays and only. No fever no chills no significant abdominal pain no chest pain Related Data Home Medications ?Medication ?Instructions ?Recorded ?Confirmed carvedilol 12.5 mg tablet 12.5 mg PO BID 06/05/23 09/09/23 docusate sodium 100 mg capsule 100 mg PO DAILY PRN constipation 06/05/23 09/09/23 isosorbide mononitrate 30 mg 30 mg PO DAILY 06/05/23 09/09/23 tablet,extended release 24 hr torsemide 20 mg tablet 40 mg PO BID 06/05/23 09/09/23 levetiracetam 1,000 mg tablet 1,000 mg PO DAILY 06/17/23 09/09/23 oxycodone 5 mg tablet 5 mg PO TID PRN Pain 06/17/23 09/09/23 calcium carbonate (Calcium Antacid) 1 tab PO TIDWM 08/28/23 09/09/23 cholecalciferol (vitamin D3) 50 50 mcg PO DAILY 08/28/23 09/09/23 mcg (2,000 unit) capsule omeprazole 20 mg capsule,delayed 20 mg PO DAILY@0630 08/28/23 09/09/23 release Previous Rx's ?Medication ?Instructions ?Recorded off loading boot #1 ea 03/14/23 mirtazapine 7.5 mg tablet 7.5 mg PO BEDTIME #90 tabs 06/20/23 sertraline 25 mg tablet 25 mg PO DAILY #30 tabs 06/27/23 hydralazine 50 mg tablet 50 mg PO TID #90 tabs 09/17/23 oxycodone 5 mg tablet 7.5 mg (1.5 x 5 mg) PO Q6H PRN 09/17/23 Pain, Severe (Pain Scale 7-10) #30 tabs Allergies Allergy/AdvReac Type Severity Reaction Status Date / Time morphine [MORPHINE] Allergy Intermediate Itching Verified 10/01/23 23:33 azithromycin [From Zithromax] Allergy Hives Verified 10/01/23 23:33 gabapentin Allergy Facial Verified 10/01/23 23:33 Swelling tramadol Allergy Facial Verified 10/01/23 23:33 Swelling vancomycin Allergy Anaphylaxis Verified 10/01/23 23:33 Review of Systems Review of Systems: Yes all other systems are reviewed and are negative PMFSH Past Medical History Medical History ESRD (end stage renal disease) Hyperkalemia Metabolic acidosis Renal failure Major depressive disorder, single episode, severe Non-compliance with renal dialysis Hypertensive urgency MDD (major depressive disorder) Hypertension Anemia MDD (major depressive disorder), recurrent episode End-stage renal disease (ESRD) Foot ulcer CKD (chronic kidney disease) Hypertension Diabetic foot Vomiting Renal failure Hypertension HFrEF (heart failure with reduced ejection fraction) ESRD on dialysis Migraine Diabetic foot ulcer associated with type 2 diabetes mellitus Chronic pain Gastroparesis Non-compliance with renal dialysis Hypertensive emergency Diabetes ESRD needing dialysis Cardiomyopathy delivery delivered Anemia in chronic kidney disease (CKD) CKD (chronic kidney disease) Headache, migraine Abnormal finding on echocardiogram Elevated troponin Chest pain Acute worsening of stage 3 chronic kidney disease Generalized edema Sepsis Cellulitis Pleural effusion CHF (congestive heart failure) (~06/07/22) Tachycardia Atypical chest pain Bone infection PAD (peripheral artery disease) Severe anemia Cellulitis and abscess of foot DM foot ulcer Osteomyelitis Asthma Depression with anxiety Diabetic retinopathy Type 2 diabetes mellitus with hyperglycemia, with long-term current use of insulin Blind right eye Diabetes Back pain Surgical History Hx of surgical procedure (~09/11/23) 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 Family History Family History Mother Coronary artery disease Myocardial infarction Stroke Diabetes mellitus Father Myocardial infarction Social History Social History Household Members: Family Household Members Other:: sister Housing: Apartment Do you presently have visiting nurse or other home services: No Unable to assess alcohol history related to: Unknown Alcohol intake: never 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 Patient Tobacco Use Status: Never used Tobacco Smoked in Last 30 Days: No e-Cigarette/Vaping Use: Never Used Second Hand Smoke Exposure: No Use of substances other than those prescribed or required for medical reasons: No Advance Directives: Yes Advance Directives on File: Yes Advance Directives Date on File: 03/08/20 Do you have a plan to hurt others: No Plan Patient : No service: No Current occupational status: unemployed and disabled Gender identity: Female Physical Exam ED Vital Signs: Vital Signs - 24 hr 10/01/23 23:32 10/02/23 00:06 10/02/23 00:07 Temperature 98.0 F Pulse Rate 107 H Respiratory Rate 19 18 Blood Pressure 191/120 H 191/120 H Pulse Oximetry 98 Oxygen Delivery Method Nasal Cannula Oxygen Flow Rate 10/02/23 02:00 10/02/23 02:35 10/02/23 03:09 Temperature 97.7 F Pulse Rate 120 H 118 H Respiratory Rate 22 H 20 Blood Pressure 217/136 H 217/136 H 178/105 H Pulse Oximetry 95 95 Oxygen Delivery Method Room Air Room Air Oxygen Flow Rate 10/02/23 04:00 10/02/23 04:09 10/02/23 05:41 Temperature 98.5 F Pulse Rate 107 H 106 H 82 Respiratory Rate 22 H 15 Blood Pressure 190/113 H 190/113 H 175/101 H Pulse Oximetry 100 98 Oxygen Delivery Method Nasal Cannula Room Air Oxygen Flow Rate 3 10/02/23 06:00 10/02/23 06:08 Temperature 98.7 F Pulse Rate 85 Respiratory Rate 16 Blood Pressure 181/110 H 177/108 H Pulse Oximetry 95 Oxygen Delivery Method Room Air Oxygen Flow Rate BMI result Body Mass Index 31.7 Appearance: Alert. Oriented X3. Coughing and vomiting Eyes: Legally blind opacified right cornea ENT: Pharynx normal. Oral Mucosa moist Neck: Normal inspection. Neck supple. CVS: Normal heart rate and rhythm. Pulses normal. Respiratory: No respiratory distress. Equal air entry bilateral, no wheezing/rales/rhonchi Abdomen: Soft and nontender. Bowel sounds are present, no mass palpable, no CVA tenderness Skin: Skin warm and dry. Normal skin color. Normal skin turgor. Extremities: No lower extremity edema. No calf tenderness bilateral MTP Neuro: Alert and awake Medications Administered Discontinued Medications Generic Name Dose Route Start Last Admin Trade Name Freq PRN Reason Stop Dose Admin Diphenhydramine HCl 25 mg 10/02/23 01:18 10/02/23 01:43 Diphenhydramine Hcl 50 Mg/Ml Vial IVPUSH 10/02/23 01:19 25 mg ONCE ONE Administration Furosemide 100 mg 10/02/23 05:45 10/02/23 06:08 Furosemide 100 Mg/10 Ml Vial IVPUSH 10/02/23 05:46 100 mg ONCE ONE Administration Protocol Guaifenesin/Codeine Phosphate 10 ml 10/02/23 03:11 10/02/23 03:58 Guaifen/Codeine Sf 200/20/10ml 10 Ml Liquid PO 10/02/23 03:12 10 ml ONCE ONE Administration Hydralazine HCl 10 mg 10/01/23 23:52 10/02/23 00:06 Hydralazine Hcl 20 Mg/Ml Vial IVPUSH 10/01/23 23:53 10 mg ONCE ONE Administration Protocol Hydralazine HCl 20 mg 10/02/23 02:21 10/02/23 02:35 Hydralazine Hcl 20 Mg/Ml Vial IVPUSH 10/02/23 02:22 20 mg ONCE ONE Administration Protocol Hydromorphone HCl 2 mg 10/01/23 23:52 10/02/23 00:07 Hydromorphone Hcl 2 Mg/Ml Vial IVPUSH 10/01/23 23:53 2 mg ONCE ONE Administration Protocol Labetalol HCl 20 mg 10/02/23 04:05 10/02/23 04:09 Labetalol Hcl 100 Mg/20 Ml Vial IVPUSH 10/02/23 04:06 20 mg ONCE ONE Administration Lorazepam 2 mg 10/02/23 03:04 10/02/23 03:09 Lorazepam 2 Mg/Ml Vial IVPUSH 10/02/23 03:05 2 mg ONCE ONE Administration Ondansetron HCl 4 mg 10/01/23 23:52 10/02/23 00:07 Ondansetron Hcl 4 Mg/2 Ml Vial IVPUSH 10/01/23 23:53 4 mg ONCE ONE Administration Sodium Zirconium Cyclosilicate 10 gm 10/02/23 00:47 10/02/23 01:45 Sodium Zirconium Cyclosilicate 10 Gm Powd.Pack PO 10/02/23 00:48 10 gm ONCE ONE Administration Medical Decision Making Medical Decision Making [facility] Narrative: Patient has multiple comorbid conditions been here multiple times for pain control and nausea vomiting comes here for similar complaints blood pressure was elevated on arrival in poor responded to IV hydralazine and labetalol patient was also given Lasix patient is scheduled for dialysis at 11:00 will discharge patient home plan to go for dialysis today patient's blood pressure improved during stay in the ER Differential Diagnosis Differential Diagnoses: The differential diagnosis associated with the presentation includes ACCELERATED HYPERTENSION/CHF/END-STAGE RENAL DISEASE/HYPERKALEMIA Admission/Observation Consideration of admission/observation: Escalation of care including admission/observation considered Lab Data [facility] Lab Attestation statement: I reviewed the patient's lab results. 10/01/23 23:58 10/01/23 23:58 Labs: Lab Results 10/01/23 Range/Units 23:58 WBC 8.2 (4.8-10.8) X10*3/uL RBC 2.85 L (4.20-5.50) X10*6/uL Hgb 8.6 L (12.0-16.0) g/dl Hct 26.5 L (37.0-47.0) % MCV 93.0 (80.0-98.0) fL MCH 30.2 (27.0-33.0) pg MCHC 32.5 (31.0-35.0) g/dl RDW 15.9 (11.0-16.0) % Plt Count 143 L (160-400) X10*3/uL MPV 11.7 (9.4-12.3) fL Immature Gran % (Auto) 1.0 H (0.0-0.4) % Neut % (Auto) 84.9 H (45-73) % Lymph % (Auto) 6.1 L (20-40) % Hardy % (Auto) 6.1 (2-11) % Eos % (Auto) 1.5 (0-4) % Baso % (Auto) 0.4 (0-2) % Lymph # (Auto) 0.5 L (1.2-4.9) X10*3/uL Hardy # (Auto) 0.5 (0.1-1.2) X10*3/uL Eos # (Auto) 0.1 (0.0-0.4) X10*3/uL Baso # (Auto) 0.0 (0.0-0.2) X10*3/uL Abs Immat Gran (auto) 0.08 H (0.00-0.03) X10*3/uL Absolute Neuts (auto) 7.0 (2.0-8.3) x10*3/uL Absolute Nucleated RBC 0.000 (0.0-0.012) X10*3/uL Nucleated RBC % (auto) 0.0 (0.0-0.2) /100WBC Sodium 137 (135-145) mmol/L Potassium 5.8 H D (3.3-5.1) mmol/L Chloride 105 (96-108) mmol/L Carbon Dioxide 15 L (22-29) mmol/L Anion Gap 23 H (12-20) BUN 98 H (9-16) mg/dL Creatinine 9.00 H* (0.5-1.4) mg/dL Estim Creat Clear Calc 9.8 Estimated GFR 5 Random Glucose 92 (60-115) mg/dL Lactic Acid 1.8 (0.5-2.0) mmol/L Calcium 8.4 (8.4-10.2) mg/dL Total Bilirubin 1.0 (0.0-1.0) mg/dL AST 24 (5-31) U/L ALT 15 (0-31) U/L Alkaline Phosphatase 146 H (39-117) U/L Troponin I High Sens 32.0 H D (<3.5-17.0) ng/L Total Protein 8.3 H (6.5-8.0) g/dL Albumin 3.4 L (3.5-5.0) g/dL Lipase 73 (8-78) U/L Influenza Type A (PCR) NEGATIVE (Negative) Influenza Type B (PCR) NEGATIVE (Negative) RSV RNA Qual (PCR) NEGATIVE (Negative) SARS-CoV-2 RNA (RT-PCR) NEGATIVE (Negative) Independent Interpretation I performed an independent interpretation of an: EKG Interpretation: SINUS TACHYCARDIA HEART RATE 105 LEFT AXIS DEVIATION RIGHT BUNDLE-BRANCH BLOCK NO ACUTE STT WAVE CHANGES NO ACUTE ISCHEMIA Critical Care Time Critical Care Time Critical Care Time: Yes Total Critical Care Time: 60 Attestation: The patient was critically ill with a high probability of imminent or life threatening deterioration. I spent greater than 70???minutes of discontinuous time evaluating the patient,delivering critical care at the bedside, PATIENT IS REQUIRING MULTIPLE DOSES OF IV ANTIHYPERTENSIVE MEDICATIONS. Critical care time does not include time spent performing separately billable procedures or teaching. Total time spent performing critical care was ?60??minutes. Discharge Plan Discharge Clinical Impression: ESRD (end stage renal disease), Hypertension, Chronic pain syndrome Patient Disposition: Home, Self-Care Instructions: Chronic Pain (ED), Chronic Hypertension (ED), End Stage Kidney Disease (ED) Additional Instructions: Take medication as prescribed by your PCP have dialysis today and follow with your PCP Prescriptions: No Action (DME) off loading boot Kit See Rx Instructions .Route Qty: 1 0RF Rx Instructions: As directed carvedilol 12.5 mg tablet 12.5 mg PO BID torsemide 20 mg tablet 40 mg PO BID isosorbide mononitrate 30 mg tablet extended release 24 hr 30 mg PO DAILY docusate sodium 100 mg capsule 100 mg PO DAILY PRN (Reason: constipation) oxycodone 5 mg tablet 5 mg PO TID PRN (Reason: Pain) levetiracetam 1,000 mg tablet 1,000 mg PO DAILY mirtazapine 7.5 mg Tablet 7.5 mg PO BEDTIME Qty: 90 0RF sertraline 25 mg Tablet 25 mg PO DAILY Qty: 30 0RF cholecalciferol (vitamin D3) 50 mcg (2,000 unit) capsule 50 mcg PO DAILY Calcium Antacid 300 mg (750 mg) tablet,chewable 1 tab PO TIDWM omeprazole 20 mg capsule,delayed release(DR/EC) 20 mg PO DAILY@0630 hydralazine 50 mg Tablet 50 mg PO TID Qty: 90 0RF Protocol: Hold for SBP< HOLD for SBP < : 90 oxycodone 5 mg Tablet 7.5 mg PO Q6H PRN (Reason: Pain, Severe (Pain Scale 7-10)) Qty: 30 0RF Rx Instructions: Partial Fill upon patient request. Print Language: Vietnamese
[2023-10-02] VITALS (12 sets, daily range): BP systolic 175–217; BP diastolic 101–136; PULSE 82–120; RESP 15–22; TEMP 36.3–37.1; O2SAT 95–100
[2023-10-02 00:06] LABS: Basophils Percent Auto 0.4 % (0-2); Eosinophils Absolute Auto 0.1 X10*3/uL (0.0-0.4); Eosinophils Percent Auto 1.5 % (0-4); Hematocrit 26.5 % (37.0-47.0); Hemoglobin 8.6 g/dl (12.0-16.0); Imm Gran Abs Auto 0.08 X10*3/uL (0.00-0.03); Lymphocytes Absolute Auto 0.5 X10*3/uL (1.2-4.9); Lymphocytes Percent Auto 6.1 % (20-40); MANUAL DIFF FLAG NO; Mean Corpuscular HGB Conc 32.5 g/dl (31.0-35.0); Mean Corpuscular Hemoglobin 30.2 pg (27.0-33.0); Mean Platelet Volume 11.7 fL (9.4-12.3); Monocytes Absolute Auto 0.5 X10*3/uL (0.1-1.2); Monocytes Percent Auto 6.1 % (2-11); Neutrophils Percent Auto 84.9 % (45-73); Platelet Count 143 X10*3/uL (160-400); Red Blood Count 2.85 X10*6/uL (4.20-5.50); Red Cell Distribution Width 15.9 % (11.0-16.0); White Blood Count 8.2 X10*3/uL (4.8-10.8)
[2023-10-02] MEDS: hydrALAZINE HCl 20 MG/ML VIAL 10 MG IVPUSH (00:06)
[2023-10-02] MEDS: ondansetron HCL 4 MG/2 ML VIAL IVPUSH (00:07)
[2023-10-02] MEDS: HYDROmorphone HCl 2 MG/ML VIAL IVPUSH (00:07)
[2023-10-02 00:16] LABS: Lactic Acid 1.8 mmol/L (0.5-2.0)
[2023-10-02 00:29] LABS: Alanine Aminotransferase 15 U/L (0-31); Albumin Level 3.4 g/dL (3.5-5.0); Alkaline Phosphatase 146 U/L (39-117); Anion Gap 23 (12-20); Aspartate Amino Transferase 24 U/L (5-31); Blood Urea Nitrogen 98 mg/dL (9-16); Calcium 8.4 mg/dL (8.4-10.2); Carbon Dioxide 15 mmol/L (22-29); Chloride 105 mmol/L (96-108); Creatinine Clr Calc Pharmacy 9.8; Estimated Glomerular Filt Rate 5; Glucose Random 92 mg/dL (60-115); Lipase 73 U/L (8-78); Potassium 5.8 mmol/L (3.3-5.1); Sodium 137 mmol/L (135-145); Total Protein 8.3 g/dL (6.5-8.0)
[2023-10-02 00:47] LABS: Influenza A PCR NEGATIVE (Negative); Influenza B PCR NEGATIVE (Negative); Resp Syncy Virus RNA Qual PCR NEGATIVE (Negative); SARS COV2 PCR INHOUSE NEGATIVE (Negative)
[2023-10-02] MEDS: diphenhydrAMINE HCL 50 MG/ML VIAL 25 MG IVPUSH (01:43)
[2023-10-02] MEDS: Sodium Zirconium Cyclosilicate 10 GM POWD.PACK PO (01:45)
[2023-10-02] MEDS: hydrALAZINE HCl 20 MG/ML VIAL IVPUSH (02:35)
[2023-10-02] MEDS: LORazepam 2 MG/ML VIAL IVPUSH (03:09)
[2023-10-02] MEDS: guaiFEN/Codeine SF 200/20/10ML 10 ML LIQUID PO (03:58)
[2023-10-02] MEDS: Labetalol HCL 100 MG/20 ML VIAL 20 MG IVPUSH ×2 (04:09→07:01)
[2023-10-02] MEDS: Furosemide 100 MG/10 ML VIAL IVPUSH (06:08)
== END 2023-10-02 10:34 | disposition home or self-care (01) ==
PROVIDERS: Emergency Provider Internal Medicine
DX: E11.22 Type 2 diabetes mellitus with diabetic chronic kidney disease (principal); I13.2 Hypertensive heart and chronic kidney disease with heart failure and with stage 5 chronic kidney disease, or end stage renal disease; I50.9 Heart failure, unspecified; N18.6 End stage renal disease; G89.4 Chronic pain syndrome; R05.9 Cough, unspecified; R11.10 Vomiting, unspecified; Z99.2 Dependence on renal dialysis; Z79.899 Other long term (current) drug therapy; Z03.818 Encounter for observation for suspected exposure to other biological agents ruled out
CPT/HCPCS: 0241U; 36415; 71045; 80053; 83605; 83690; 84484; 85025; 93005; 96374; 96375; 96376; 99285; J0360; J1170; J1200; J1920; J1940; J2060; J2405

== ENCOUNTER → 2023-10-01 23:35 | Outpatient (BNV) | payer OTHER, SELFPAY | PROVIDERS: Emergency Provider Internal Medicine; Visit Provider Internal Medicine Cardiovascular Disease | DX: R94.31 Abnormal electrocardiogram [ECG] [EKG] (principal) | CPT/HCPCS: 93010 ==

== ENCOUNTER 2023-10-08 14:47 | Inpatient (IN) | payer OTHER, SELFPAY ==
--- NOTE | ~2023-10-08 | XR_ITS ---
EXAMINATION: XR CHEST CLINICAL INFORMATION: Dyspnea, missed hemodialysis COMPARISON: Chest radiograph from 10/01/2023 TECHNIQUE: Frontal view of the chest was obtained. FINDINGS: Right tunneled dialysis catheter terminating in the right atrium. No pneumothorax. Trachea is midline. Cardiac mediastinal silhouette is stable. No large pleural effusion. Osseous structures are intact. Soft tissues are unremarkable. XR/XR chest 1V IMPRESSION: No acute cardiopulmonary process.
[2023-10-08 15:25] VITALS: BP 172/101; BP 188/98; PULSE 80; PULSE 91; RESP 22; TEMP 36.4; O2SAT 97; O2SAT 98; BMI 32.5
--- NOTE | 2023-10-08 15:28 | ECG_ITS ---
Test Reason : HTN Blood Pressure : / mmHG Vent. Rate : 091 BPM Atrial Rate : 091 BPM P-R Int : 164 ms QRS Dur : 148 ms QT Int : 448 ms P-R-T Axes : 032 -15 045 degrees QTc Int : 551 ms Normal sinus rhythm Right bundle branch block Abnormal ECG When compared with ECG of 01-OCT-2023 23:32, No significant changes seen Referred By: Nat Bronw Electronically Signed By:JASKARAN COOL
--- NOTE | 2023-10-08 16:49 | ED_ITS ---
HPI - General Adult General Chief complaint: Recheck/Abnormal Lab/Rx Stated complaint: SOB,94% RA,MISSED DIALYSIS SUNDAY PER EMS Time Seen by Provider: 10/08/23 15:27 Source: patient, EMS and old records reviewed Mode of arrival: EMS Limitations: no limitations History of Present Illness ED Provider: ROCHELLE HPI narrative: 33 yo female with PMH of ESRD on HD only goes notes she was significantly edematous on and they wanted her to go to the hospital or come back Sunday but she did not, PAD, opiate dependence, DM foot wounds s/p recent L TMA, HTN, strokes here with c/o feeling short of breath, pain in L foot wounds though states Dr. Rajput was happy with her wound healing on Sunday did enforce some open areas with steri strips, and elevated BPs. States her GLASS GLAZIER always given her her medications so she is definitely compliant. She denies cough or fevers. She is asking for pain medications for her foot wounds MD complaint: dyspnea, HTN, foot wounds Onset (ago): day(s) (Sunday) Location: chest, left, right and lower extremity Radiation: non-radiation Severity: moderate Quality: aching Pain Consistency: constant Relieving factors: none Exacerbating factors: movement Associated symptoms: shortness of breath Treatments prior to arrival: none Related Data Home Medications ?Medication ?Instructions ?Recorded ?Confirmed carvedilol 12.5 mg tablet 12.5 mg PO BID 06/05/23 09/09/23 docusate sodium 100 mg capsule 100 mg PO DAILY PRN constipation 06/05/23 09/09/23 isosorbide mononitrate 30 mg 30 mg PO DAILY 06/05/23 09/09/23 tablet,extended release 24 hr torsemide 20 mg tablet 40 mg PO BID 06/05/23 09/09/23 levetiracetam 1,000 mg tablet 1,000 mg PO DAILY 06/17/23 09/09/23 oxycodone 5 mg tablet 5 mg PO TID PRN Pain 06/17/23 09/09/23 calcium carbonate (Calcium Antacid) 1 tab PO TIDWM 08/28/23 09/09/23 cholecalciferol (vitamin D3) 50 50 mcg PO DAILY 08/28/23 09/09/23 mcg (2,000 unit) capsule omeprazole 20 mg capsule,delayed 20 mg PO DAILY@30 08/28/23 09/09/23 release Previous Rx's ?Medication ?Instructions ?Recorded off loading boot #1 ea 03/14/23 mirtazapine 7.5 mg tablet 7.5 mg PO BEDTIME #90 tabs 06/20/23 sertraline 25 mg tablet 25 mg PO DAILY #30 tabs 06/27/23 hydralazine 50 mg tablet 50 mg PO TID #90 tabs 09/17/23 oxycodone 5 mg tablet 7.5 mg (1.5 x 5 mg) PO Q6H PRN 09/17/23 Pain, Severe (Pain Scale 7-10) #30 tabs Allergies Allergy/AdvReac Type Severity Reaction Status Date / Time morphine [MORPHINE] Allergy Intermediate Itching Verified 10/08/23 15:30 azithromycin [From Zithromax] Allergy Hives Verified 10/08/23 15:30 gabapentin Allergy Facial Verified 10/08/23 15:30 Swelling tramadol Allergy Facial Verified 10/08/23 15:30 Swelling vancomycin Allergy Anaphylaxis Verified 10/08/23 15:30 Review of Systems 2 Review of Systems: Constitutional : No Fever, No Chills ENT/Mouth : No sore throat, No Rhinorrhea, No Swallowing Difficulty Eyes: No Eye Pain, No Swelling, No Redness Cardiovascular : No Chest Pain, positive SOB, No Orthopnea, positive Edema Respiratory : No Cough, No Sputum, No Wheezing, positive dyspnea Gastrointestinal : No Nausea, No Vomiting, No Diarrhea, No abdominal Pain, No Hematochezia, No Melena Genitourinary : No Dysuria, No Urinary Frequency, No Hematuria Musculoskeletal : pos joint pain, No Myalgias Skin : No Skin Lesions, No rash Neuro : No Weakness, No Numbness, No Dizziness, No Headache Psych : No Anxiety/Panic, No Depression All other systems reviewed and are negative PMFSH Past Medical History Attestation statement: The following information was validated with the patient. Source: old records reviewed Medical History ESRD (end stage renal disease) Hyperkalemia Metabolic acidosis Renal failure Major depressive disorder, single episode, severe Non-compliance with renal dialysis Hypertensive urgency MDD (major depressive disorder) Hypertension Anemia MDD (major depressive disorder), recurrent episode End-stage renal disease (ESRD) Foot ulcer CKD (chronic kidney disease) Hypertension Diabetic foot Vomiting Renal failure Hypertension HFrEF (heart failure with reduced ejection fraction) ESRD on dialysis Migraine Diabetic foot ulcer associated with type 2 diabetes mellitus Chronic pain Gastroparesis Non-compliance with renal dialysis Hypertensive emergency Diabetes ESRD needing dialysis Cardiomyopathy delivery delivered Anemia in chronic kidney disease (CKD) CKD (chronic kidney disease) Headache, migraine Abnormal finding on echocardiogram Elevated troponin Chest pain Acute worsening of stage 3 chronic kidney disease Generalized edema Sepsis Cellulitis Pleural effusion CHF (congestive heart failure) (~06/07/22) Tachycardia Atypical chest pain Bone infection PAD (peripheral artery disease) Severe anemia Cellulitis and abscess of foot DM foot ulcer Osteomyelitis Asthma Depression with anxiety Diabetic retinopathy Type 2 diabetes mellitus with hyperglycemia, with long-term current use of insulin Blind right eye Diabetes Back pain Surgical History Hx of surgical procedure (~09/11/23) 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 Family History Family History Mother Coronary artery disease Myocardial infarction Stroke Diabetes mellitus Father Myocardial infarction Social History Social History Household Members: Family Household Members Other:: sister Housing: Apartment Do you presently have visiting nurse or other home services: No Unable to assess alcohol history related to: Unknown Alcohol intake: never 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 Patient Tobacco Use Status: Never used Tobacco Smoked in Last 30 Days: No e-Cigarette/Vaping Use: Never Used Second Hand Smoke Exposure: No Use of substances other than those prescribed or required for medical reasons: No Advance Directives: Yes Advance Directives on File: Yes Advance Directives Date on File: 03/08/20 Do you have a plan to hurt others: No Plan Patient : No service: No Current occupational status: unemployed and disabled Gender identity: Female Physical Exam ED Vital Signs: Vital Signs - 24 hr 10/08/23 15:25 10/08/23 17:50 10/08/23 17:53 Temperature 97.6 F 97.5 F Pulse Rate 91 94 Respiratory Rate 22 H 18 Blood Pressure 188/98 H 192/112 H 192/112 H Pulse Oximetry 98 94 Oxygen Delivery Method Room Air Room Air 10/08/23 19:07 Temperature Pulse Rate 95 Respiratory Rate 18 Blood Pressure 180/97 H Pulse Oximetry 95 Oxygen Delivery Method Room Air BMI result Body Mass Index 32.5 Appearance: Alert. Oriented X3. No acute distress. Eyes: R eye opacified ENT: Pharynx normal. Neck: Normal inspection. Neck supple. CVS: Normal heart rate and rhythm. Pulses normal. Respiratory: No respiratory distress. Breath sounds normal. No rales heard Abdomen: Soft and nontender. Skin: Skin warm and dry. Normal skin color. see pictures of foot wounds below no active erythema or drainage. slight odor noted Extremities: No lower extremity edema. Neuro: Oriented X 3. No motor deficit. No sensory deficit. Medications Administered Discontinued Medications Generic Name Dose Route Start Last Admin Trade Name Brandon PRN Reason Stop Dose Admin Hydralazine HCl 10 mg 10/08/23 16:21 10/08/23 17:50 Hydralazine Hcl 20 Mg/Ml Vial IVPUSH 10/08/23 16:22 10 mg ONCE ONE Administration Protocol Hydromorphone HCl 1 mg 10/08/23 16:25 10/08/23 17:52 Hydromorphone Hcl 1 Mg/Ml Syringe IVPUSH 10/08/23 16:26 1 mg ONCE ONE Administration Protocol Medical Decision Making Medical Decision Making MDM Narrative: 33 yo female with PMH of ESRD on HD only goes notes she was significantly edematous on and they wanted her to go to the hospital or come back Sunday but she did not, PAD, opiate dependence, DM foot wounds s/p recent L TMA, HTN here with c/o not going to HD on Sunday feeling more dyspneic noting her BP is high chronic pain in both feet. Has O2 at home but doesn't feel it helps. She states she has too much fluid on her. I do not hear rales on exam, she is not hypoxic 94% on exam and no leg edema. She is very HTNive IV hydralazine ordered. She is asking for pain medications for her chronic wounds - suspect issues due to lack of HD on Sunday and was told on she should go to hospital or get HD on Sunday which she did not. Labs, EKG, CXR ordered. Differential Diagnosis Differential Diagnoses: The differential diagnosis associated with the presentation includes non compliance uncontrolled HTN, dyspnea, chronic foot wounds Admission/Observation Consideration of admission/observation: Escalation of care including admission/observation considered admit for HD in AM repeat IV hyd Consult Healthcare Provider Management of the patient was discussed with: Hospitalist (will admit) Lab Data [facility] Lab Attestation statement: I reviewed the patient's lab results. 10/08/23 17:24 10/08/23 17:24 Labs: Lab Results 10/08/23 Range/Units 17:24 WBC 4.7 L (4.8-10.8) X10*3/uL RBC 2.70 L (4.20-5.50) X10*6/uL Hgb 8.1 L (12.0-16.0) g/dl Hct 25.7 L (37.0-47.0) % MCV 95.2 (80.0-98.0) fL MCH 30.0 (27.0-33.0) pg MCHC 31.5 (31.0-35.0) g/dl RDW 17.1 H (11.0-16.0) % Plt Count 186 D (160-400) X10*3/uL MPV 12.8 H (9.4-12.3) fL Immature Gran % (Auto) 0.4 (0.0-0.4) % Neut % (Auto) 78.7 H (45-73) % Lymph % (Auto) 8.9 L (20-40) % [place] % (Auto) 8.9 (2-11) % Eos % (Auto) 2.5 (0-4) % Baso % (Auto) 0.6 (0-2) % Lymph # (Auto) 0.4 L (1.2-4.9) X10*3/uL [place] # (Auto) 0.4 (0.1-1.2) X10*3/uL Eos # (Auto) 0.1 (0.0-0.4) X10*3/uL Baso # (Auto) 0.0 (0.0-0.2) X10*3/uL Abs Immat Gran (auto) 0.02 (0.00-0.03) X10*3/uL Absolute Neuts (auto) 3.7 (2.0-8.3) x10*3/uL Absolute Nucleated RBC 0.000 (0.0-0.012) X10*3/uL Nucleated RBC % (auto) 0.0 (0.0-0.2) /100WBC Sodium 136 (135-145) mmol/L Potassium 5.0 (3.3-5.1) mmol/L Chloride 101 (96-108) mmol/L Carbon Dioxide 16 L (22-29) mmol/L Anion Gap 24 H (12-20) BUN 90 H (9-16) mg/dL Creatinine 8.20 H* (0.5-1.4) mg/dL Estim Creat Clear Calc 10.9 Estimated GFR 6 Random Glucose 105 (60-115) mg/dL Calcium 8.5 (8.4-10.2) mg/dL Magnesium 2.8 H (1.6-2.6) mg/dL Total Bilirubin 1.3 H (0.0-1.0) mg/dL Direct Bilirubin 0.7 H (0.0-0.5) mg/dL AST 20 (5-31) U/L ALT 15 (0-31) U/L Alkaline Phosphatase 187 H (39-117) U/L Troponin I High Sens 22.5 H (<3.5-17.0) ng/L Total Protein 8.0 (6.5-8.0) g/dL Albumin 3.3 L (3.5-5.0) g/dL Ethyl Alcohol < 10 mg/dL Independent Interpretation I performed an independent interpretation of an: EKG and Plain X-Ray (no edema) Interpretation: Rate: 91 Rhythm: NSR [place]: left Normal P waves. Normal [place]. RBBB ST T wave : ST depressions lateral leads no GABRIELE qTC: 551 prior studies: no change from priors The study has been interpreted contemporaneously by me. . Radiology Impression Discussion of test interpretation with radiology: I have reviewed the radiologist's reading. Independent Historian Clinical information obtained from an independent historian. History obtained from or confirmed by: EMS External Record Review External record reviewed: Inpatient record Critical Care Time Critical Care Time Critical Care Time: Yes Total Critical Care Time: 40 Attestation: IV hydralazine for HTN, IV dilaudid with improvement for pain, review of records I attest to this time spent taking care of the patient Discharge Plan Discharge Clinical Impression: Medical non-compliance, Hypertension, uncontrolled, Chronic kidney disease Patient Disposition: Admitted As Inpatient Prescriptions: No Action (DME) off loading boot Kit See Rx Instructions .Route Qty: 1 0RF Rx Instructions: As directed carvedilol 12.5 mg tablet 12.5 mg PO BID torsemide 20 mg tablet 40 mg PO BID isosorbide mononitrate 30 mg tablet extended release 24 hr 30 mg PO DAILY docusate sodium 100 mg capsule 100 mg PO DAILY PRN (Reason: constipation) oxycodone 5 mg tablet 5 mg PO TID PRN (Reason: Pain) levetiracetam 1,000 mg tablet 1,000 mg PO DAILY mirtazapine 7.5 mg Tablet 7.5 mg PO BEDTIME Qty: 90 0RF sertraline 25 mg Tablet 25 mg PO DAILY Qty: 30 0RF cholecalciferol (vitamin D3) 50 mcg (2,000 unit) capsule 50 mcg PO DAILY Calcium Antacid 300 mg (750 mg) tablet,chewable 1 tab PO TIDWM omeprazole 20 mg capsule,delayed release(DR/EC) 20 mg PO DAILY@0630 hydralazine 50 mg Tablet 50 mg PO TID Qty: 90 0RF Protocol: Hold for SBP< HOLD for SBP < : 90 oxycodone 5 mg Tablet 7.5 mg PO Q6H PRN (Reason: Pain, Severe (Pain Scale 7-10)) Qty: 30 0RF Rx Instructions: Partial Fill upon patient request. Print Language: Serbian
[2023-10-08 17:30] LABS: MANUAL DIFF FLAG NO
[2023-10-08 17:47] LABS: Basophils Percent Auto 0.6 % (0-2); Eosinophils Absolute Auto 0.1 X10*3/uL (0.0-0.4); Eosinophils Percent Auto 2.5 % (0-4); Hematocrit 25.7 % (37.0-47.0); Hemoglobin 8.1 g/dl (12.0-16.0); Imm Gran Abs Auto 0.02 X10*3/uL (0.00-0.03); Imm Gran Pct Auto 0.4 % (0.0-0.4); Lymphocytes Absolute Auto 0.4 X10*3/uL (1.2-4.9); Lymphocytes Percent Auto 8.9 % (20-40); Mean Corpuscular HGB Conc 31.5 g/dl (31.0-35.0); Mean Corpuscular Volume 95.2 fL (80.0-98.0); Mean Platelet Volume 12.8 fL (9.4-12.3); Monocytes Absolute Auto 0.4 X10*3/uL (0.1-1.2); Monocytes Percent Auto 8.9 % (2-11); Neutrophils Absolute Auto 3.7 x10*3/uL (2.0-8.3); Neutrophils Percent Auto 78.7 % (45-73); Platelet Count 186 X10*3/uL (160-400); Red Cell Distribution Width 17.1 % (11.0-16.0); White Blood Count 4.7 X10*3/uL (4.8-10.8)
[2023-10-08 17:50] VITALS: BP 192/112
[2023-10-08] MEDS: hydrALAZINE HCl 20 MG/ML VIAL 10 MG IVPUSH (17:50)
[2023-10-08] MEDS: HYDROmorphone HCl 1 MG/ML SYRINGE IVPUSH (17:52)
[2023-10-08 17:53] VITALS: BP 192/112; PULSE 94; RESP 18; TEMP 36.4; O2SAT 94
[2023-10-08 18:08] LABS: Troponin-I High Sensitivity 22.5 ng/L (<3.5-17.0)
[2023-10-08 18:25] LABS: Alanine Aminotransferase 15 U/L (0-31); Albumin Level 3.3 g/dL (3.5-5.0); Alkaline Phosphatase 187 U/L (39-117); Anion Gap 24 (12-20); Aspartate Amino Transferase 20 U/L (5-31); Bilirubin Direct 0.7 mg/dL (0.0-0.5); Bilirubin Total 1.3 mg/dL (0.0-1.0); Blood Urea Nitrogen 90 mg/dL (9-16); Calcium 8.5 mg/dL (8.4-10.2); Carbon Dioxide 16 mmol/L (22-29); Chloride 101 mmol/L (96-108); Creatinine Clr Calc Pharmacy 10.9; Estimated Glomerular Filt Rate 6; Ethanol < 10 mg/dL; Glucose Random 105 mg/dL (60-115); Magnesium 2.8 mg/dL (1.6-2.6); Sodium 136 mmol/L (135-145)
[2023-10-08 19:07] VITALS: BP 180/97; PULSE 95; RESP 18; O2SAT 95
--- NOTE | 2023-10-08 19:08 | PC.NURSE ---
assumed care of pt at 1900.
[2023-10-08 19:16] VITALS: BP 184/100
[2023-10-08] MEDS: hydrALAZINE HCl 50 MG TABLET PO ×2 (19:16→21:43)
[2023-10-08] MEDS: diphenhydrAMINE HCL 25 MG CAPSULE PO (19:16)
[2023-10-08] MEDS: levETIRAcetam 1,000 MG TABLET 1000 MG PO (19:17)
--- NOTE | 2023-10-08 19:46 | P.HPHOSP_ITS ---
History of Present Illness Date of Service: 10/08/23 Attending physician on admission: Alejandra Sewell Chief Complaint: dyspnea 33 years old woman with past medical history significant for ESRD on HD, multiple hospitalizations due to noncompliance with hemodialysis, diabetic retinopathy with blindness, peripheral vascular disease (s/p bilat transmetatarsal amputation), poorly controlled hypertension due to noncompliance with medications, chronic respiratory failure on supplemental oxygen, HFrEF, mood disorder, chronic pain with opiate seeking behavior presented to the ED earlier today for evaluation of acute dyspnea. Reportedly last HD session and was advised at that time to come to the hospital due to volume overload but declined and was instead advised to go to HD on sunday but did not. Reports acute worsening of dyspnea earlier today and supplemental O2 was not helping. She was seen earlier by Dr. cruz in follow up for diabetic foot infection s/p TMA and was advised that incision healing appropriately though further amputation may be needed due to osteomyelitis and non healing ulcers. No evidence of acute infection. Reportedly meds are all administered by her [employer]ING B[employer]ER and has not missed any doses. Since arrival has been hypertensive to 192/112 given iv hydralazine. Hematology studies baseline. Creatinine 8.20, BUN 90, CO2 16. Troponin 22.5. Chest x-ray unremarkable. EKG shows NSR, rate 91 with right bundle-branch block and nonspecific T-wave abnormalities, but no evidence of acute ischemic changes. In addition to IV hydralazine has also been given 1 mg IV Dilaudid, IV Benadryl, and 50 mg p.o. hydralazine. Has been vomiting up PO medications but was tolerating food in the ED. Review of Systems 2 Review of Systems: Yes all other systems are reviewed and are negative [facility] Medical History ESRD (end stage renal disease) Hyperkalemia Metabolic acidosis Renal failure Major depressive disorder, single episode, severe Non-compliance with renal dialysis Hypertensive urgency MDD (major depressive disorder) Hypertension Anemia MDD (major depressive disorder), recurrent episode End-stage renal disease (ESRD) Foot ulcer CKD (chronic kidney disease) Hypertension Diabetic foot Vomiting Renal failure Hypertension HFrEF (heart failure with reduced ejection fraction) ESRD on dialysis Migraine Diabetic foot ulcer associated with type 2 diabetes mellitus Chronic pain Gastroparesis Non-compliance with renal dialysis Hypertensive emergency Diabetes ESRD needing dialysis Cardiomyopathy delivery delivered Anemia in chronic kidney disease (CKD) CKD (chronic kidney disease) Headache, migraine Abnormal finding on echocardiogram Elevated troponin Chest pain Acute worsening of stage 3 chronic kidney disease Generalized edema Sepsis Cellulitis Pleural effusion CHF (congestive heart failure) (~06/07/22) Tachycardia Atypical chest pain Bone infection PAD (peripheral artery disease) Severe anemia Cellulitis and abscess of foot DM foot ulcer Osteomyelitis Asthma Depression with anxiety Diabetic retinopathy Type 2 diabetes mellitus with hyperglycemia, with long-term current use of insulin Blind right eye Diabetes Back pain Family History Mother Coronary artery disease Myocardial infarction Stroke Diabetes mellitus Father Myocardial infarction Surgical History Hx of surgical procedure (~09/11/23) 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 Social History Household Members: Family Household Members Other:: sister Housing: Apartment Do you presently have visiting nurse or other home services: No Unable to assess alcohol history related to: Unknown Alcohol intake: never 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 Patient Tobacco Use Status: Never used Tobacco Smoked in Last 30 Days: No e-Cigarette/Vaping Use: Never Used Second Hand Smoke Exposure: No Use of substances other than those prescribed or required for medical reasons: No Advance Directives: Yes Advance Directives on File: Yes Advance Directives Date on File: 03/08/20 Do you have a plan to hurt others: No Plan Nutrition Risks: No Nutritional Risk Patient : No service: No Current occupational status: unemployed and disabled Gender identity: Female Meds Allergies Allergy/AdvReac Type Severity Reaction Status Date / Time morphine [MORPHINE] Allergy Intermediate Itching Verified 10/08/23 15:30 azithromycin [From Zithromax] Allergy Hives Verified 10/08/23 15:30 gabapentin Allergy Facial Verified 10/08/23 15:30 Swelling tramadol Allergy Facial Verified 10/08/23 15:30 Swelling vancomycin Allergy Anaphylaxis Verified 10/08/23 15:30 Active Medications: Current Medications Acetaminophen (Acetaminophen 325 Mg Tablet) 650 mg PO Q6H PRN PRN Reason: Pain, Mild (Pain Scale 1-3), fever or headache Calcium Carbonate (Calcium Carbonate 750 Mg Tab.Chew) 750 mg PO Q4H PRN PRN Reason: Heartburn Diphenhydramine HCl (Diphenhydramine Hcl 25 Mg Capsule) 25 mg PO Q6H PRN PRN Reason: Itching Heparin Sodium (Porcine) (Heparin Sodium,Porcine 5,000 Unit/Ml Vial) 5,000 unit SUBCUT Q12H VASILE Hydromorphone HCl (Hydromorphone Hcl 2 Mg Tablet) 1 mg PO Q6H PRN PRN Reason: Pain, Severe (Pain Scale 7-10) Magnesium Hydroxide (Milk Of Magnesia 30 Ml Oral.Susp) 30 ml PO DAILY PRN PRN Reason: Constipation Melatonin (Melatonin 3 Mg Tablet) 6 mg PO BEDTIME PRN PRN Reason: Insomnia Ondansetron HCl (Ondansetron Odt 4 Mg Tab.Rapdis) 4 mg TRANSLINGU Q8H PRN PRN Reason: Nausea and Vomiting Oxycodone HCl (Oxycodone Hcl Immed Release 5 Mg Tablet) 5 mg PO Q6H PRN PRN Reason: Pain, Moderate(Pain Scale 4-6) Sodium Chloride (0.9 % Sodium Chloride Flush 3 Ml Syringe) [address] [facility] Home Medications ?Medication ?Instructions ?Recorded ?Confirmed ?Last Taken ?Type carvedilol 12.5 mg tablet 12.5 mg PO BID 06/05/23 10/08/23 10/08/23 History isosorbide mononitrate 30 mg 30 mg PO DAILY 06/05/23 10/08/23 10/08/23 History tablet,extended release 24 hr torsemide 20 mg tablet 40 mg PO BID 06/05/23 10/08/23 10/08/23 History levetiracetam 1,000 mg tablet 1,000 mg PO DAILY 06/17/23 10/08/23 10/08/23 History oxycodone 5 mg tablet 5 mg PO Q8H 06/17/23 10/08/23 10/08/23 History calcium carbonate (Calcium Antacid) 1 tab PO TIDWM 08/28/23 10/08/23 10/08/23 History diphenhydramine HCl 12.5 mg/5 mL 25 mg PO BEDTIME 10/08/23 10/08/23 Unknown History oral elixir nifedipine 60 mg tablet,extended 60 mg PO DAILY 10/08/23 10/08/23 10/08/23 History release 24 hr Physical Exam 2 Vital Signs and Narrative: Vital Signs: Last Vital Signs Temp 97.5 F 10/08/23 17:53 Pulse 95 10/08/23 19:07 Resp 18 10/08/23 19:07 BP 184/100 H 10/08/23 19:16 Pulse Ox 95 10/08/23 19:07 O2 Del Method Room Air 10/08/23 19:07 BMI result Body Mass Index 32.5 Constitutional - Awake and Alert, No apparent distress Cardiovascular - S1S2, RRR, No edema Respiratory - Normal lung expansion, Normal respiratory effort, No respiratory distress, CTA bilaterally Gastrointestinal - NT / ND; +BS; No rebound or guarding Extremities - no calf tenderness bilaterally, no swelling Musculoskeletal - s/p b/l TMA,s ee photos Skin - Warm/Dry. Diabetic foot ulcers as below no evidence of purulent drainage, surrounding erythema Neurological - Alert & oriented x3 Psychological - Appropriate affect Results Labs 10/08/23 17:24 10/08/23 17:24 Labs: Laboratory Results - last 24 hr 10/08/23 17:24 MCV 95.2 MCH 30.0 MCHC 31.5 RDW 17.1 H Plt Count 186 D MPV 12.8 H Immature Gran % (Auto) 0.4 Neut % (Auto) 78.7 H Lymph % (Auto) 8.9 L [place] % (Auto) 8.9 Eos % (Auto) 2.5 Baso % (Auto) 0.6 Lymph # (Auto) 0.4 L [place] # (Auto) 0.4 Eos # (Auto) 0.1 Baso # (Auto) 0.0 Abs Immat Gran (auto) 0.02 Absolute Neuts (auto) 3.7 Absolute Nucleated RBC 0.000 Nucleated RBC % (auto) 0.0 Anion Gap 24 H Estim Creat Clear Calc 10.9 Estimated GFR 6 Random Glucose 105 Calcium 8.5 Magnesium 2.8 H Total Bilirubin 1.3 H Direct Bilirubin 0.7 H AST 20 ALT 15 Alkaline Phosphatase 187 H Troponin I High Sens 22.5 H Total Protein 8.0 Albumin 3.3 L Ethyl Alcohol < 10 Imaging Radiologist's Impressions: Impressions Chest X-Ray 10/08/23 15:40 IMPRESSION: No acute cardiopulmonary process. Assessment and Plan (1) Acute dyspnea: Status: Acute Plan 33 years old woman with past medical history significant for ESRD on HD, multiple hospitalizations due to noncompliance with hemodialysis, diabetic retinopathy with blindness, peripheral vascular disease (s/p bilat transmetatarsal amputation), poorly controlled hypertension due to noncompliance with medications, chronic respiratory failure on supplemental oxygen, HFrEF, mood disorder, chronic pain with opiate seeking behavior admtited for acute dyspnea r/t volume overload in setting of missed HD #acute dyspnea r/t volume overload in setting of missed HD -CXR unremarkable -nephrology consult, plan for hd am -continue po diuretics -continue supplemental O2 per protocol #ESRD on HD -noncompliance with HD- advised to come to hospital for volume overload following hd on but did not and did not go to hd on sun -nephro consult, hd am #Hypertensive urgency -ResumePO hydralazine, 30mg isosorbide, 12.5mg carvediolol (home meds though suspect noncompliant) -prn hydralazine if SBP >180 -follow bp #Elevated troponin -likely chronic troponin leak vs uncontrolled htn -no chest pain, ekg without acute ischemic changes #Chronic pain disorder -allergy to morphine, tramadol, gabapentin -po oxycodone and hydromorphone on pain scale # chronic bilateral diabetic foot ulcer -wound appears clean/dry without evidence of acute infection -personal financial counselor consult # [id number] type 2 diabetes -POC glucose, diabetic diet -Humalog on sliding scale #HFrEF with chronic hypoxemic respiratory failure -Resume HD as above for management of volume -continue po diuretics -continue 4 L supplemental O2, home dose #CAD/Cardiomyopathy -continue ASA, beta-mohamud, isosorbide # diabetic polyneuropathy -continue home pain medications DVT prophylaxis-heparin Full code Patient requires inpatient stay at least 2 midnights for management of acute dyspnea in setting of volume overload r/t missed HD and will require expert consultation and HD i Quality Stroke Does the patient have a stroke diagnosis?: No VTE Prior VTE?: No VTE Risk Level:: Medical - moderate - high VTE Device Contraindication: Treatment Not Indicated VTE Drug Contraindication: N/A - Med Ordered
--- NOTE | 2023-10-08 20:14 | PHA.MEDREC ---
Addendum entered by Ashvin Ramey [facility] 10/08/23 20:49: Med Rec double checked by [facility] Original Note: Pharmacy Consult ? Medication Reconciliation Pharmacy has completed the medication reconciliation. Spoke to patient to confirm med list. Patient states she is not taking Vitamin D3 50mcg daily, Mirtazapine 7.5 mg at bedtime, Omeprazole 20 mg daily, and Sertraline 25 mg daily. patient also states she takes Oxycodone 5 mg q 6 h , however claims states Q8H prn . Left on med red what claim states.
[2023-10-08 20:57] VITALS: BP 222/124; PULSE 99; RESP 17; TEMP 36.2; O2SAT 95
[2023-10-08] MEDS: 0.9 % Sodium Chloride Flush 3 ML SYRINGE IVFLUSH (21:23)
[2023-10-08] MEDS: carvediloL 12.5 MG TABLET PO (21:23)
[2023-10-08 21:26] LABS: Glucose, Whole Blood 94 mg/dL (60-115)
[2023-10-08] MEDS: Torsemide 20 MG TABLET 40 MG PO (21:43)
[2023-10-08] MEDS: diphenhydrAMINE HCl 12.5 MG/5 ML LIQUID 25 MG PO (21:43)
[2023-10-08] MEDS: Ondansetron ODT 4 MG TAB.RAPDIS TRANSLINGU (21:47)
[2023-10-08] MEDS: HYDROmorphone HCl 2 MG TABLET 1 MG PO (23:55)
[2023-10-09] VITALS (7 sets, daily range): BP systolic 138–198; BP diastolic 72–108; PULSE 75–85; RESP 14–18; TEMP 36–36.7; O2SAT 95–96
[2023-10-09 07:33] LABS: Glucose, Whole Blood 71 mg/dL (60-115)
--- NOTE | 2023-10-09 08:19 | PC.NURSE ---
pt offered meds this AM and refused
--- NOTE | 2023-10-09 09:11 | MHC.CM.PN ---
Addendum entered by Vane Houston 10/09/23 09:14: HCP on file and verified. Original Note: IMM 10/08. 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 Pt goes to [facility] for HD on /Sun. Pt uses a wheelchair. Pts sister will transport her home at discharge PCP: Abdon Beard
[2023-10-09] MEDS: HYDROmorphone HCl 0.5 MG/0.5 ML SYRINGE IVPUSH ×3 (12:49→23:02)
--- NOTE | 2023-10-09 15:28 | HO.PM.IMPN ---
Subjective Subjective Date of Service: 10/09/23 Interval History: Still complaining of pain Review of Systems Denies chest pain No shortness of breath Denies nausea vomiting diarrhea Denies fever chills Physical Exam Vital Signs: Vital Signs: Last Vital Signs Temp 98.1 F 10/09/23 07:18 Pulse 78 10/09/23 07:18 Resp 16 10/09/23 07:18 BP 142/72 H 10/09/23 07:18 Pulse Ox 95 10/09/23 07:18 O2 Del Method Room Air 10/09/23 07:18 BMI result Body Mass Index 32.5 Const: Other: No acute distress Resp: Other: Clear To auscultation bilaterally no rales rhonchi or wheezes Cardio: Other: No S4; positive S1-S2; no S3 murmurs rubs GI: Other: Soft nontender nondistended normoactive bowel sounds Extrem: Other: No edema right lower extremity Objective Data Active Medications Acetaminophen (Acetaminophen 325 Mg Tablet) 650 mg PO Q6H PRN PRN Reason: Pain, Mild (Pain Scale 1-3), fever or headache Calcium Carbonate (Calcium Carbonate 750 Mg Tab.Chew) 750 mg PO Q4H PRN PRN Reason: Heartburn Calcium Carbonate (Calcium Carbonate 750 Mg Tab.Chew) 300 mg PO TIDWM [facility] Last Admin: 10/09/23 11:36 Dose: Not Given Documented By: SEAN Non-Admin Reason: Patient Refused Carvedilol (Carvedilol 12.5 Mg Tablet) 12.5 mg PO BID [facility]; Protocol Last Admin: 10/09/23 10:12 Dose: Not Given Documented By: SEAN Non-Admin Reason: Patient Refused Diphenhydramine HCl (Diphenhydramine Hcl 25 Mg Capsule) 25 mg PO Q6H PRN PRN Reason: Itching Diphenhydramine HCl (Diphenhydramine Hcl 12.5 Mg/5 Ml Liquid) 25 mg PO BEDTIME [facility] Last Admin: 10/08/23 21:43 Dose: 25 mg Documented By: ETHEL Glucose (Glucose Gel 15 Gm Gel..Gram.) 15 gm PO Q15M PRN; Protocol PRN Reason: per Hypoglycemia Standing Ord. Heparin Sodium (Porcine) (Heparin Sodium,Porcine 5,000 Unit/Ml Vial) 5,000 unit SUBCUT Q12H [facility] Last Admin: 10/09/23 10:12 Dose: Not Given Documented By: SEAN Non-Admin Reason: Patient Refused Hydralazine HCl (Hydralazine Hcl 20 Mg/Ml Vial) 10 mg IVPUSH Q6H PRN; Protocol PRN Reason: SBP > 180 Hydralazine HCl (Hydralazine Hcl 50 Mg Tablet) 50 mg PO TID [facility]; Protocol Last Admin: 10/09/23 10:13 Dose: Not Given Documented By: SEAN Non-Admin Reason: Patient Refused Hydromorphone HCl (Hydromorphone Hcl 0.5 Mg/0.5 Ml Syringe) 0.5 mg IVPUSH Q4H PRN; Protocol PRN Reason: Pain, Severe (Pain Scale 7-10) Last Admin: 10/09/23 12:49 Dose: 0.5 mg Documented By: SERGIO Dextrose (D10) 250 mls @ 750 mls/hr IV Q15M PRN; Protocol PRN Reason: per Hypoglycemia Standing Ord. Insulin Human Lispro (Insulin Lispro 100 Unit/Ml 3 Ml Vial) 0 unit SUBCUT QIDACHS [facility]; Protocol Last Admin: 10/09/23 11:18 Dose: Not Given Documented By: SEAN Non-Admin Reason: pt refusing POC checks Isosorbide Mononitrate (Isosorbide Mononitrate 30 Mg Tab.Er.24h) 30 mg PO DAILY [facility]; Protocol Last Admin: 10/09/23 10:13 Dose: Not Given Documented By: SEAN Non-Admin Reason: Patient Refused Levetiracetam (Levetiracetam 1,000 Mg Tablet) 1,000 mg PO DAILY [facility] Last Admin: 10/09/23 10:14 Dose: Not Given Documented By: SEAN Non-Admin Reason: Patient Refused Magnesium Hydroxide (Milk Of Magnesia 30 Ml Oral.Susp) 30 ml PO DAILY PRN PRN Reason: Constipation Melatonin (Melatonin 3 Mg Tablet) 6 mg PO BEDTIME PRN PRN Reason: Insomnia Nifedipine (Nifedipine Er 60 Mg Tab.Er.24) 60 mg PO DAILY [facility]; Protocol Last Admin: 10/09/23 10:14 Dose: Not Given Documented By: SEAN Non-Admin Reason: Patient Refused Ondansetron HCl (Ondansetron Odt 4 Mg Tab.Rapdis) 4 mg TRANSLINGU Q8H PRN PRN Reason: Nausea and Vomiting Last Admin: 10/08/23 21:47 Dose: 4 mg Documented By: ETHEL Oxycodone HCl (Oxycodone Hcl Immed Release 5 Mg Tablet) 5 mg PO Q4H PRN PRN Reason: Pain, Moderate(Pain Scale 4-6) Sodium Chloride (0.9 % Sodium Chloride Flush 3 Ml Syringe) 3 ml IVFLUSH QSHIFT [facility] Last Admin: 10/09/23 11:37 Dose: Not Given Documented By: SEAN Non-Admin Reason: Previously Administered Torsemide (Torsemide 20 Mg Tablet) 40 mg PO BID [facility]; Protocol Last Admin: 10/09/23 10:14 Dose: Not Given Documented By: SEAN Non-Admin Reason: Patient Refused Labs 10/08/23 17:24 10/08/23 17:24 Labs: Laboratory Results - last 24 hr 10/08/23 10/08/23 10/09/23 17:24 21:15 07:13 MCV 95.2 MCH 30.0 MCHC 31.5 RDW 17.1 H Plt Count 186 D MPV 12.8 H Immature Gran % (Auto) 0.4 Neut % (Auto) 78.7 H Lymph % (Auto) 8.9 L [place] % (Auto) 8.9 Eos % (Auto) 2.5 Baso % (Auto) 0.6 Lymph # (Auto) 0.4 L [place] # (Auto) 0.4 Eos # (Auto) 0.1 Baso # (Auto) 0.0 Abs Immat Gran (auto) 0.02 Absolute Neuts (auto) 3.7 Absolute Nucleated RBC 0.000 Nucleated RBC % (auto) 0.0 Anion Gap 24 H Estim Creat Clear Calc 10.9 Estimated GFR 6 POC Glucose 94 71 Random Glucose 105 Calcium 8.5 Magnesium 2.8 H Total Bilirubin 1.3 H Direct Bilirubin 0.7 H AST 20 ALT 15 Alkaline Phosphatase 187 H Troponin I High Sens 22.5 H Total Protein 8.0 Albumin 3.3 L Ethyl Alcohol < 10 Assessment and Plan (1) Acute dyspnea: Status: Acute (2) ESRD (end stage renal disease): Status: Acute (3) Chronic ulcer of left foot due to diabetes mellitus: Status: Acute Plan 33 years old woman with past medical history significant for ESRD on HD, multiple hospitalizations due to noncompliance with hemodialysis, diabetic retinopathy with blindness, peripheral vascular disease (s/p bilat transmetatarsal amputation), poorly controlled hypertension due to noncompliance with medications, chronic respiratory failure on supplemental oxygen, HFrEF, mood disorder, chronic pain with opiate seeking behavior admtited for acute dyspnea r/t volume overload in setting of missed HD 1.Acute dyspnea r/t volume overload in setting of missed HD -continue po diuretics -continue supplemental O2 per protocol 2.ESRD on HD -HD as per renal -follow renals/divalent 3.Hypertension -acceptable control now that outpatient therapies resumed -adjust as indicated; may need addition of hydralazine 4.Chronic pain disorder -Dilaudid/Oxy -adjust as indicated 5.Chronic bilateral diabetic foot ulcer -wound appears clean/dry without evidence of acute infection -optical instruments supervisor consult 6.Goj-hdltore-nhfibmcjz type 2 diabetes -acceptable control on current therapies -lispro correctional scale -adjust as indicated 7.HFrEF with chronic hypoxemic respiratory failure -Resume HD as above for management of volume -continue po diuretics -continue 4 L supplemental O2, home dose 8.CAD/Cardiomyopathy -stable and well compensated Heparin Full code Patient requires ongoing hospitalization for stabilization of volume status and treatment of heart failure Quality Stroke Does the patient have a stroke diagnosis?: No VTE Prior VTE?: No VTE Risk Level:: Medical - moderate - high VTE Device Contraindication: Treatment Not Indicated VTE Drug Contraindication: N/A - Med Ordered
[2023-10-09] MEDS: 0.9 % Sodium Chloride Flush 3 ML SYRINGE IVFLUSH ×2 (16:01→20:48)
[2023-10-09 16:03] LABS: Glucose, Whole Blood 78 mg/dL (60-115)
--- NOTE | 2023-10-09 20:13 | HO.WOUND ---
Wound Consult: Initial 33yr old female? admitted to [facility] on 10/08/23 - See progress notes and H&P for detailed history.? This patient is known to this field underwriter for frequent readmissions see chart for history. Wound consult placed for Bilateral lower foot wounds. Patient agreeable to assessment and photo documentation.? Left TMA site - Dehiscence and yellow necrotic slough noted - depth appreciated - foul odor noted - Durafiber Ag applied - recommend surgical consult for evaluation. Right Plantar Diabetic Wound Right Lateral Diabetic Wound Right Dorsal Diabetic Wound Left Heel - Diabetic Wound Left Plantar Diabetic Wound Etiology: ??Diabetic Wounds with various measurements and in various stages of healing Wound Bed: various amounts of slough and eschar noted Drainage / Odor: foul odor noted Pain: patient reports significant pain Goals of Treatment: ? Durafiber Ag for moisture management and consult to surgery for debridement and incision assessment Recommendations: 1. Turn and Reposition every 2 hours and as needed for patient comfort.? Use pillows or wedges to support off loading positions. 2. Off Load all bony prominences with use of pillows and heel boots if needed.? Apply Preventative foams where needed. ? 3. Monitor for incontinence and moisture control, use barrier creams when needed for prevention and treatment. 4. Provide adequate and supplemental nutrition.? 5. Order or Continue low air loss mattress. 6. When applicable maintain blood glucose levels per Providers order. 7. Bilateral Lower Legs wounds - Elevate heels off of bed surface with pillows. Cleanse with Betadine. Cover wound beds with Durafiber AG and ABD pad and gauze wrap. Change every other day. Re-consult wound care Nurse for wound deterioration or wound changes.
[2023-10-09 20:31] LABS: Glucose, Whole Blood 82 mg/dL (60-115)
[2023-10-09] MEDS: diphenhydrAMINE HCl 12.5 MG/5 ML LIQUID 25 MG PO (20:40)
[2023-10-09] MEDS: hydrALAZINE HCl 20 MG/ML VIAL 10 MG IVPUSH (20:48)
--- NOTE | 2023-10-09 21:49 | PC.NURSE ---
BP 198/108, pt refused PO BP meds, hydralazine 10 mg IV given @2049, repeat BP was 168/72 2130
[2023-10-10] VITALS (8 sets, daily range): BP systolic 112–199; BP diastolic 72–108; PULSE 77–82; RESP 16–20; TEMP 36–36.5; O2SAT 95–99
[2023-10-10] MEDS: HYDROmorphone HCl 0.5 MG/0.5 ML SYRINGE IVPUSH ×5 (03:07→20:21)
[2023-10-10] MEDS: hydrALAZINE HCl 20 MG/ML VIAL 10 MG IVPUSH (03:20)
[2023-10-10 07:34] LABS: Glucose, Whole Blood 74 mg/dL (60-115)
[2023-10-10] MEDS: carvediloL 12.5 MG TABLET PO ×2 (07:47→20:21)
[2023-10-10] MEDS: hydrALAZINE HCl 50 MG TABLET PO ×2 (07:47→16:27)
[2023-10-10] MEDS: NIFEdipine ER 60 MG TAB.ER.24 PO (07:48)
--- NOTE | 2023-10-10 08:27 | PM.CNGS ---
History of Present Illness Consult details Consult date: 10/10/23 Narrative: 53 year female with multiple medical problems, including end-stage renal disease, diabetes, on hemodialysis, admitted because of shortness of breath. She is well known to the service. She is very poorly compliant with care and has had multiple and frequent admissions to the hospital. She had apparently missed her hemodialysis session and had to be admitted because of fluid overload I had done her amputation on the left foot for the 2nd 3rd and 4th toes a month ago. She says that she has this ulcer on the plantar aspect of the foot and the heel. She says that she has had the ulcer on the plantar aspect for about 4 years. She says that this been debridement at times. She says that this continues to cause her pain. She denies significant drainage. The amputation site of the 2nd 3rd and 4th toes are well healed. She is bed-bound and is visually impaired. Review of Systems Constitutional: Constitutional: Denies chills and Denies fever(s) Cardiovascular: Cardiovascular: Denies chest pain and Reports dyspnea Respiratory: Respiratory: Reports dyspnea Genitourinary: Comments: On hemodialysis Psychiatric: Psychiatric: Reports anxiety PMFSH Past Medical History Medical History (Updated 10/10/23 @ 08:30 by Tu Rajput MD) Plantar ulcer of left foot ESRD (end stage renal disease) Hyperkalemia Metabolic acidosis Renal failure Major depressive disorder, single episode, severe Non-compliance with renal dialysis Hypertensive urgency MDD (major depressive disorder) Hypertension Anemia MDD (major depressive disorder), recurrent episode End-stage renal disease (ESRD) Foot ulcer CKD (chronic kidney disease) Hypertension Diabetic foot Vomiting Renal failure Hypertension HFrEF (heart failure with reduced ejection fraction) ESRD on dialysis Migraine Diabetic foot ulcer associated with type 2 diabetes mellitus Chronic pain Gastroparesis Non-compliance with renal dialysis Hypertensive emergency Diabetes ESRD needing dialysis Cardiomyopathy delivery delivered Anemia in chronic kidney disease (CKD) CKD (chronic kidney disease) Headache, migraine Abnormal finding on echocardiogram Elevated troponin Chest pain Acute worsening of stage 3 chronic kidney disease Generalized edema Sepsis Cellulitis Pleural effusion CHF (congestive heart failure) (~06/07/22) Tachycardia Atypical chest pain Bone infection PAD (peripheral artery disease) Severe anemia Cellulitis and abscess of foot DM foot ulcer Osteomyelitis Asthma Depression with anxiety Diabetic retinopathy Type 2 diabetes mellitus with hyperglycemia, with long-term current use of insulin Blind right eye Diabetes Back pain Family History Family History Mother Coronary artery disease Myocardial infarction Stroke Diabetes mellitus Father Myocardial infarction Surgical History Surgical History Hx of surgical procedure (~09/11/23) 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 Social History Social History Household Members: Spouse and Family Household Members Other:: sister Housing: Apartment Do you presently have visiting nurse or other home services: No Unable to assess alcohol history related to: Unknown Alcohol intake: never 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 Patient Tobacco Use Status: Never used Tobacco e-Cigarette/Vaping Use: Never Used Second Hand Smoke Exposure: No Advance Directives Date on File: 03/08/20 service: No Current occupational status: unemployed and disabled Gender identity: Female Meds Allergies Allergy/AdvReac Type Severity Reaction Status Date / Time morphine [MORPHINE] Allergy Intermediate Itching Verified 10/08/23 15:30 azithromycin [From Zithromax] Allergy Hives Verified 10/08/23 15:30 gabapentin Allergy Facial Verified 10/08/23 15:30 Swelling tramadol Allergy Facial Verified 10/08/23 15:30 Swelling vancomycin Allergy Anaphylaxis Verified 10/08/23 15:30 Active Medications: Current Medications Acetaminophen (Acetaminophen 325 Mg Tablet) 650 mg PO Q6H PRN PRN Reason: Pain, Mild (Pain Scale 1-3), fever or headache Calcium Carbonate (Calcium Carbonate 750 Mg Tab.Chew) 750 mg PO Q4H PRN PRN Reason: Heartburn Calcium Carbonate (Calcium Carbonate 750 Mg Tab.Chew) 300 mg PO TIDWM [facility] Last Admin: 10/09/23 16:01 Dose: Not Given Carvedilol (Carvedilol 12.5 Mg Tablet) 12.5 mg PO BID [facility]; Protocol Last Admin: 10/10/23 07:47 Dose: 12.5 mg Diphenhydramine HCl (Diphenhydramine Hcl 25 Mg Capsule) 25 mg PO Q6H PRN PRN Reason: Itching Diphenhydramine HCl (Diphenhydramine Hcl 12.5 Mg/5 Ml Liquid) 25 mg PO BEDTIME [facility] Last Admin: 10/09/23 20:40 Dose: 25 mg Glucose (Glucose Gel 15 Gm Gel..Gram.) 15 gm PO Q15M PRN; Protocol PRN Reason: per Hypoglycemia Standing Ord. Heparin Sodium (Porcine) (Heparin Sodium,Porcine 5,000 Unit/Ml Vial) 5,000 unit SUBCUT Q12H [facility] Last Admin: 10/09/23 20:43 Dose: Not Given Hydralazine HCl (Hydralazine Hcl 20 Mg/Ml Vial) 10 mg IVPUSH Q6H PRN; Protocol PRN Reason: SBP > 180 Last Admin: 10/10/23 03:20 Dose: 10 mg Hydralazine HCl (Hydralazine Hcl 50 Mg Tablet) 50 mg PO TID [facility]; Protocol Last Admin: 10/10/23 07:47 Dose: 50 mg Hydromorphone HCl (Hydromorphone Hcl 0.5 Mg/0.5 Ml Syringe) 0.5 mg IVPUSH Q4H PRN; Protocol PRN Reason: Pain, Severe (Pain Scale 7-10) Last Admin: 10/10/23 07:42 Dose: 0.5 mg Dextrose (D10) 250 mls @ 750 mls/hr IV Q15M PRN; Protocol PRN Reason: per Hypoglycemia Standing Ord. Insulin Human Lispro (Insulin Lispro 100 Unit/Ml 3 Ml Vial) 0 unit SUBCUT QIDACHS [facility]; Protocol Last Admin: 10/09/23 20:43 Dose: Not Given Isosorbide Mononitrate (Isosorbide Mononitrate 30 Mg Tab.Er.24h) 30 mg PO DAILY [facility]; Protocol Last Admin: 10/09/23 10:13 Dose: Not Given Levetiracetam (Levetiracetam 1,000 Mg Tablet) 1,000 mg PO DAILY [facility] Last Admin: 10/09/23 10:14 Dose: Not Given Magnesium Hydroxide (Milk Of Magnesia 30 Ml Oral.Susp) 30 ml PO DAILY PRN PRN Reason: Constipation Melatonin (Melatonin 3 Mg Tablet) 6 mg PO BEDTIME PRN PRN Reason: Insomnia Nifedipine (Nifedipine Er 60 Mg Tab.Er.24) 60 mg PO DAILY [facility]; Protocol Last Admin: 10/10/23 07:48 Dose: 60 mg Ondansetron HCl (Ondansetron Odt 4 Mg Tab.Rapdis) 4 mg TRANSLINGU Q8H PRN PRN Reason: Nausea and Vomiting Last Admin: 10/08/23 21:47 Dose: 4 mg Oxycodone HCl (Oxycodone Hcl Immed Release 5 Mg Tablet) 5 mg PO Q4H PRN PRN Reason: Pain, Moderate(Pain Scale 4-6) Sodium Chloride (0.9 % Sodium Chloride Flush 3 Ml Syringe) 3 ml IVFLUSH QSHIFT [facility] Last Admin: 10/09/23 20:48 Dose: 3 ml Torsemide (Torsemide 20 Mg Tablet) 40 mg PO BID [facility]; Protocol Last Admin: 10/09/23 20:43 Dose: Not Given Home Medications ?Medication ?Instructions ?Recorded ?Confirmed ?Last Taken ?Type carvedilol 12.5 mg tablet 12.5 mg PO BID 06/05/23 10/08/23 10/08/23 History isosorbide mononitrate 30 mg 30 mg PO DAILY 06/05/23 10/08/23 10/08/23 History tablet,extended release 24 hr torsemide 20 mg tablet 40 mg PO BID 06/05/23 10/08/23 10/08/23 History levetiracetam 1,000 mg tablet 1,000 mg PO DAILY 06/17/23 10/08/23 10/08/23 History oxycodone 5 mg tablet 5 mg PO Q8H 06/17/23 10/08/23 10/08/23 History calcium carbonate (Calcium Antacid) 1 tab PO TIDWM 08/28/23 10/08/23 10/08/23 History diphenhydramine HCl 12.5 mg/5 mL 25 mg PO BEDTIME 10/08/23 10/08/23 Unknown History oral elixir nifedipine 60 mg tablet,extended 60 mg PO DAILY 10/08/23 10/08/23 10/08/23 History release 24 hr Physical Exam Vital Signs: Vital Signs: Last Vital Signs Temp 97.0 F 10/10/23 07:09 Pulse 78 10/10/23 07:09 Resp 16 10/10/23 07:09 BP 187/91 H 10/10/23 07:09 Pulse Ox 95 10/10/23 07:09 O2 Del Method Room Air 10/10/23 07:09 BMI result Body Mass Index 32.5 Const: Other: Visually impaired General: no acute distress Resp: Effort & Inspection: normal respiratory effort Cardio: Rate: regular rate GI: Palpation (GI): Soft to palpation Extrem: Other: Amputation site of the left foot is well healed. There is a callus with an ulcer on the plantar aspect of the midfoot about 2.5 cm in diameter. There was note of an area of eschar on the posterior aspect of the heel ulcer of the left foot, about 1.5 cm in widest dimension She has a transmetatarsal amputation on the right foot Results Labs 10/08/23 17:24 10/08/23 17:24 Labs: All other labs normal. Laboratory Results WBC 4.7 X10*3/uL (4.8-10.8) L 10/08/23 17:24 RBC 2.70 X10*6/uL (4.20-5.50) L 10/08/23 17:24 Hgb 8.1 g/dl (12.0-16.0) L 10/08/23 17:24 Hct 25.7 % (37.0-47.0) L 10/08/23 17:24 MCV 95.2 fL (80.0-98.0) 10/08/23 17:24 MCH 30.0 pg (27.0-33.0) 10/08/23 17:24 MCHC 31.5 g/dl (31.0-35.0) 10/08/23 17:24 RDW 17.1 % (11.0-16.0) H 10/08/23 17:24 Plt Count 186 X10*3/uL (160-400) D 10/08/23 17:24 MPV 12.8 fL (9.4-12.3) H 10/08/23 17:24 Immature Gran % (Auto) 0.4 % (0.0-0.4) 10/08/23 17:24 Neut % (Auto) 78.7 % (45-73) H 10/08/23 17:24 Lymph % (Auto) 8.9 % (20-40) L 10/08/23 17:24 [place] % (Auto) 8.9 % (2-11) 10/08/23 17:24 Eos % (Auto) 2.5 % (0-4) 10/08/23 17:24 Baso % (Auto) 0.6 % (0-2) 10/08/23 17:24 Lymph # (Auto) 0.4 X10*3/uL (1.2-4.9) L 10/08/23 17:24 [place] # (Auto) 0.4 X10*3/uL (0.1-1.2) 10/08/23 17:24 Eos # (Auto) 0.1 X10*3/uL (0.0-0.4) 10/08/23 17:24 Baso # (Auto) 0.0 X10*3/uL (0.0-0.2) 10/08/23 17:24 Abs Immat Gran (auto) 0.02 X10*3/uL (0.00-0.03) 10/08/23 17:24 Absolute Neuts (auto) 3.7 x10*3/uL (2.0-8.3) 10/08/23 17:24 Absolute Nucleated RBC 0.000 X10*3/uL (0.0-0.012) 10/08/23 17:24 Nucleated RBC % (auto) 0.0 /100WBC (0.0-0.2) 10/08/23 17:24 Sodium 136 mmol/L (135-145) 10/08/23 17:24 Potassium 5.0 mmol/L (3.3-5.1) 10/08/23 17:24 Chloride 101 mmol/L (96-108) 10/08/23 17:24 Carbon Dioxide 16 mmol/L (22-29) L 10/08/23 17:24 Anion Gap 24 (12-20) H 10/08/23 17:24 BUN 90 mg/dL (9-16) H 10/08/23 17:24 Creatinine 8.20 mg/dL (0.5-1.4) H* 10/08/23 17:24 Estim Creat Clear Calc 10.9 10/08/23 17:24 Estimated GFR 6 10/08/23 17:24 POC Glucose 74 mg/dL (60-115) 10/10/23 07:13 Random Glucose 105 mg/dL (60-115) 10/08/23 17:24 Calcium 8.5 mg/dL (8.4-10.2) 10/08/23 17:24 Magnesium 2.8 mg/dL (1.6-2.6) H 10/08/23 17:24 Total Bilirubin 1.3 mg/dL (0.0-1.0) H 10/08/23 17:24 Direct Bilirubin 0.7 mg/dL (0.0-0.5) H 10/08/23 17:24 AST 20 U/L (5-31) 10/08/23 17:24 ALT 15 U/L (0-31) 10/08/23 17:24 Alkaline Phosphatase 187 U/L (39-117) H 10/08/23 17:24 Troponin I High Sens 22.5 ng/L (<3.5-17.0) H 10/08/23 17:24 Total Protein 8.0 g/dL (6.5-8.0) 10/08/23 17:24 Albumin 3.3 g/dL (3.5-5.0) L 10/08/23 17:24 Ethyl Alcohol < 10 mg/dL 10/08/23 17:24 Impressions Chest X-Ray 10/08/23 15:40 IMPRESSION: No acute cardiopulmonary process. Assessment and Plan (1) Plantar ulcer of left foot: Status: Acute She has an ulcer on the plantar aspect of the left foot as described above. This is surrounded by thick callus. I proceeded to do sharp excisional debridement at bedside using scissors. I applied dressings thereafter She also has this small area of a superficial eschar on the posterior aspect of the heel. She is unable to tolerate debridement for this at this time. She stated that she would like an amputation of the left foot at the level of the ankle. She says she only wants the foot amputated. I explained to her that to do this would mean a BKA which would be just at the level of the mid leg more proximally. This will be due to the benefit with functionality and also because of her peripheral vascular disease, with better chances of healing at this level She says she does not want to do an amputation at this level and insists that she only wants it ?at the foot?. I told her that that may not be the best procedure to do. One option is to just continued to debride the plantar ulcers and avoid an amputation at this time She says she will think about this for now. I will follow her while she is in the hospital. Procedures Date of Service Date of Service: 10/10/23 Procedure Note Procedure Note: Procedure: Excisional debridement, left foot plantar ulcer Preop diagnosis: Plantar ulcer with callus, left foot Postop diagnosis: The same There was note of a plantar ulcer with a thick callus at the mid part of the foot. This was about a 2.5 cm ulcer including the callus. I proceeded to do sharp excisional debridement using fine scissors to remove his callus down to healthy looking tissue. I then applied dry dressings and wrapped the foot with Kerlix roll. She may need further debridement down the line. She tolerated procedure well. There was minimal blood loss.
[2023-10-10] MEDS: 0.9 % Sodium Chloride Flush 3 ML SYRINGE IVFLUSH ×3 (12:06→20:28)
--- NOTE | 2023-10-10 12:42 | HO.PM.IMPN ---
Subjective Subjective Date of Service: 10/10/23 Interval History: No acute issues overnight. Pain control improved with adjustment of medications. Dialysis today Review of Systems Denies chest pain No shortness of breath Denies nausea vomiting diarrhea Denies fever chills Physical Exam Vital Signs: Vital Signs: Last Vital Signs Temp 97.0 F 10/10/23 07:09 Pulse 78 10/10/23 07:09 Resp 16 10/10/23 07:09 BP 184/86 H 10/10/23 08:27 Pulse Ox 95 10/10/23 07:09 O2 Del Method Room Air 10/10/23 07:09 BMI result Body Mass Index 32.5 Const: Other: No acute distress Resp: Other: Clear To auscultation bilaterally no rales rhonchi or wheezes Cardio: Other: No S4; positive S1-S2; no S3 murmurs rubs GI: Other: Soft nontender nondistended normoactive bowel sounds Extrem: Other: No edema right lower extremity Objective Data Active Medications Acetaminophen (Acetaminophen 325 Mg Tablet) 650 mg PO Q6H PRN PRN Reason: Pain, Mild (Pain Scale 1-3), fever or headache Calcium Carbonate (Calcium Carbonate 750 Mg Tab.Chew) 750 mg PO Q4H PRN PRN Reason: Heartburn Calcium Carbonate (Calcium Carbonate 750 Mg Tab.Chew) 300 mg PO TIDWM [facility] Last Admin: 10/10/23 09:50 Dose: Not Given Documented By: TEDDY Non-Admin Reason: Patient Refused Carvedilol (Carvedilol 12.5 Mg Tablet) 12.5 mg PO BID [facility]; Protocol Last Admin: 10/10/23 07:47 Dose: 12.5 mg Documented By: TEDDY Diphenhydramine HCl (Diphenhydramine Hcl 25 Mg Capsule) 25 mg PO Q6H PRN PRN Reason: Itching Diphenhydramine HCl (Diphenhydramine Hcl 12.5 Mg/5 Ml Liquid) 25 mg PO BEDTIME [facility] Last Admin: 10/09/23 20:40 Dose: 25 mg Documented By: ETHEL Glucose (Glucose Gel 15 Gm Gel..Gram.) 15 gm PO Q15M PRN; Protocol PRN Reason: per Hypoglycemia Standing Ord. Heparin Sodium (Porcine) (Heparin Sodium,Porcine 5,000 Unit/Ml Vial) 5,000 unit SUBCUT Q12H [facility] Last Admin: 10/10/23 09:50 Dose: Not Given Documented By: TEDDY Non-Admin Reason: Patient Refused Hydralazine HCl (Hydralazine Hcl 20 Mg/Ml Vial) 10 mg IVPUSH Q6H PRN; Protocol PRN Reason: SBP > 180 Last Admin: 10/10/23 03:20 Dose: 10 mg Documented By: ETHEL Hydralazine HCl (Hydralazine Hcl 50 Mg Tablet) 50 mg PO TID [facility]; Protocol Last Admin: 10/10/23 07:47 Dose: 50 mg Documented By: TEDDY Hydromorphone HCl (Hydromorphone Hcl 0.5 Mg/0.5 Ml Syringe) 0.5 mg IVPUSH Q4H PRN; Protocol PRN Reason: Pain, Severe (Pain Scale 7-10) Last Admin: 10/10/23 12:03 Dose: 0.5 mg Documented By: CARISSA Dextrose (D10) 250 mls @ 750 mls/hr IV Q15M PRN; Protocol PRN Reason: per Hypoglycemia Standing Ord. Insulin Human Lispro (Insulin Lispro 100 Unit/Ml 3 Ml Vial) 0 unit SUBCUT QIDACHS [facility]; Protocol Last Admin: 10/10/23 09:49 Dose: Not Given Documented By: TEDDY Non-Admin Reason: No Insulin Coverage Isosorbide Mononitrate (Isosorbide Mononitrate 30 Mg Tab.Er.24h) 30 mg PO DAILY [facility]; Protocol Last Admin: 10/10/23 09:51 Dose: Not Given Documented By: TEDDY Non-Admin Reason: Patient Refused Levetiracetam (Levetiracetam 1,000 Mg Tablet) 1,000 mg PO DAILY [facility] Last Admin: 10/10/23 09:51 Dose: Not Given Documented By: TEDDY Non-Admin Reason: Patient Refused Magnesium Hydroxide (Milk Of Magnesia 30 Ml Oral.Susp) 30 ml PO DAILY PRN PRN Reason: Constipation Melatonin (Melatonin 3 Mg Tablet) 6 mg PO BEDTIME PRN PRN Reason: Insomnia Nifedipine (Nifedipine Er 60 Mg Tab.Er.24) 60 mg PO DAILY [facility]; Protocol Last Admin: 10/10/23 07:48 Dose: 60 mg Documented By: TEDDY Ondansetron HCl (Ondansetron Odt 4 Mg Tab.Rapdis) 4 mg TRANSLINGU Q8H PRN PRN Reason: Nausea and Vomiting Last Admin: 10/08/23 21:47 Dose: 4 mg Documented By: ETHEL Oxycodone HCl (Oxycodone Hcl Immed Release 5 Mg Tablet) 5 mg PO Q4H PRN PRN Reason: Pain, Moderate(Pain Scale 4-6) Sodium Chloride (0.9 % Sodium Chloride Flush 3 Ml Syringe) 3 ml IVFLUSH QSHIFT [facility] Last Admin: 10/10/23 12:06 Dose: 3 ml Documented By: CARISSA Torsemide (Torsemide 20 Mg Tablet) 40 mg PO BID [facility]; Protocol Last Admin: 10/10/23 11:40 Dose: Not Given Documented By: SIERRA Non-Admin Reason: Patient Refused Labs 10/08/23 17:24 10/08/23 17:24 Labs: Laboratory Results - last 24 hr 10/09/23 10/09/23 10/10/23 15:59 20:28 07:13 POC Glucose 78 82 74 Assessment and Plan (1) ESRD (end stage renal disease): Status: Acute (2) Hypertension, uncontrolled: Status: Acute Plan 33 years old woman with past medical history significant for ESRD on HD, multiple hospitalizations due to noncompliance with hemodialysis, diabetic retinopathy with blindness, peripheral vascular disease (s/p bilat transmetatarsal amputation), poorly controlled hypertension due to noncompliance with medications, chronic respiratory failure on supplemental oxygen, HFrEF, mood disorder, chronic pain with opiate seeking behavior admtited for acute dyspnea r/t volume overload in setting of missed HD 1.Acute dyspnea r/t volume overload in setting of missed HD -continue po diuretics -no further oxygen requirement 2.ESRD on HD -HD this am -follow renals/divalent 3.Hypertension -acceptable control now that outpatient therapies resumed -adjust as indicated; may need addition of hydralazine 4.Chronic pain disorder -Dilaudid/Oxy -adjust as indicated 5.Chronic bilateral diabetic foot ulcer -wound appears clean/dry without evidence of acute infection -lpn care manager consult 6.Knn-cftqedi-lotovmran type 2 diabetes -acceptable control on current therapies -lispro correctional scale -adjust as indicated 7.HFrEF with chronic hypoxemic respiratory failure -Resume HD as above for management of volume -continue po diuretics -continue 4 L supplemental O2, home dose 8.CAD/Cardiomyopathy -stable and well compensated Heparin Full code Patient requires ongoing hospitalization for stabilization of volume status and treatment of heart failure Quality Stroke Does the patient have a stroke diagnosis?: No VTE Prior VTE?: No VTE Risk Level:: Medical - moderate - high VTE Device Contraindication: Treatment Not Indicated VTE Drug Contraindication: N/A - Med Ordered
[2023-10-10 14:54] LABS: Glucose, Whole Blood 77 mg/dL (60-115)
--- NOTE | 2023-10-10 15:59 | MHC.CM.PN ---
EMR reviewed and per MD rounds, pt is not medically cleared for discharge due to ongoing management of fluid overload/HF.
[2023-10-10 16:20] LABS: Glucose, Whole Blood 77 mg/dL (60-115)
[2023-10-10] MEDS: diphenhydrAMINE HCl 12.5 MG/5 ML LIQUID 25 MG PO (20:22)
[2023-10-11] MEDS: HYDROmorphone HCl 0.5 MG/0.5 ML SYRINGE IVPUSH ×6 (00:26→20:39)
[2023-10-11 03:52] VITALS: BP 100/52; PULSE 77; RESP 18; TEMP 36.4; O2SAT 95
--- NOTE | 2023-10-11 08:13 | PM.PNGS ---
Subjective Subjective Date of Service: 10/11/23 Interval history: Complains of chronic pain on left foot Physical Exam Vital Signs: Vital Signs: Last Vital Signs Temp 97.6 F 10/11/23 03:52 Pulse 77 10/11/23 03:52 Resp 18 10/11/23 03:52 BP 100/52 L 10/11/23 03:52 Pulse Ox 95 10/11/23 03:52 O2 Del Method Room Air 10/11/23 03:52 BMI result Body Mass Index 32.5 Const: Other: Extremely anxious, seen for pain meds for the left foot General: no acute distress Resp: Effort & Inspection: normal respiratory effort Cardio: Rate: regular rate GI: Palpation (GI): Soft to palpation Extrem: Other: Plantar ulcer, left foot at the mid part with thick callus, very tender to touch; superficial ulcer on the posterior aspect of the left heel, eschar Objective Data Active Medications Acetaminophen (Acetaminophen 325 Mg Tablet) 650 mg PO Q6H PRN PRN Reason: Pain, Mild (Pain Scale 1-3), fever or headache Calcium Carbonate (Calcium Carbonate 750 Mg Tab.Chew) 750 mg PO Q4H PRN PRN Reason: Heartburn Calcium Carbonate (Calcium Carbonate 750 Mg Tab.Chew) 300 mg PO TIDWM [facility] Last Admin: 10/10/23 17:07 Dose: Not Given Documented By: TEDDY Non-Admin Reason: Patient Refused Carvedilol (Carvedilol 12.5 Mg Tablet) 12.5 mg PO BID [facility]; Protocol Last Admin: 10/10/23 20:21 Dose: 12.5 mg Documented By: CHRISTAL Diphenhydramine HCl (Diphenhydramine Hcl 25 Mg Capsule) 25 mg PO Q6H PRN PRN Reason: Itching Diphenhydramine HCl (Diphenhydramine Hcl 12.5 Mg/5 Ml Liquid) 25 mg PO BEDTIME [facility] Last Admin: 10/10/23 20:22 Dose: 25 mg Documented By: CHRISTAL Glucose (Glucose Gel 15 Gm Gel..Gram.) 15 gm PO Q15M PRN; Protocol PRN Reason: per Hypoglycemia Standing Ord. Heparin Sodium (Porcine) (Heparin Sodium,Porcine 5,000 Unit/Ml Vial) 5,000 unit SUBCUT Q12H [facility] Last Admin: 10/10/23 20:03 Dose: Not Given Documented By: CHRISTAL Non-Admin Reason: Patient Refused Hydralazine HCl (Hydralazine Hcl 20 Mg/Ml Vial) 10 mg IVPUSH Q6H PRN; Protocol PRN Reason: SBP > 180 Last Admin: 10/10/23 03:20 Dose: 10 mg Documented By: ETHEL Hydralazine HCl (Hydralazine Hcl 50 Mg Tablet) 50 mg PO TID [facility]; Protocol Last Admin: 10/10/23 20:28 Dose: Not Given Documented By: CHRISTAL Non-Admin Reason: Patient Refused Hydromorphone HCl (Hydromorphone Hcl 0.5 Mg/0.5 Ml Syringe) 0.5 mg IVPUSH Q4H PRN; Protocol PRN Reason: Pain, Severe (Pain Scale 7-10) Last Admin: 10/11/23 04:06 Dose: 0.5 mg Documented By: CHRISTAL Dextrose (D10) 250 mls @ 750 mls/hr IV Q15M PRN; Protocol PRN Reason: per Hypoglycemia Standing Ord. Insulin Human Lispro (Insulin Lispro 100 Unit/Ml 3 Ml Vial) 0 unit SUBCUT QIDACHS [facility]; Protocol Last Admin: 10/10/23 20:28 Dose: Not Given Documented By: CHRISTAL Non-Admin Reason: refused poc check Isosorbide Mononitrate (Isosorbide Mononitrate 30 Mg Tab.Er.24h) 30 mg PO DAILY [facility]; Protocol Last Admin: 10/10/23 09:51 Dose: Not Given Documented By: TEDDY Non-Admin Reason: Patient Refused Levetiracetam (Levetiracetam 1,000 Mg Tablet) 1,000 mg PO DAILY [facility] Last Admin: 10/10/23 09:51 Dose: Not Given Documented By: TEDDY Non-Admin Reason: Patient Refused Magnesium Hydroxide (Milk Of Magnesia 30 Ml Oral.Susp) 30 ml PO DAILY PRN PRN Reason: Constipation Melatonin (Melatonin 3 Mg Tablet) 6 mg PO BEDTIME PRN PRN Reason: Insomnia Nifedipine (Nifedipine Er 60 Mg Tab.Er.24) 60 mg PO DAILY [facility]; Protocol Last Admin: 10/10/23 07:48 Dose: 60 mg Documented By: TEDDY Ondansetron HCl (Ondansetron Odt 4 Mg Tab.Rapdis) 4 mg TRANSLINGU Q8H PRN PRN Reason: Nausea and Vomiting Last Admin: 10/08/23 21:47 Dose: 4 mg Documented By: ETHEL Oxycodone HCl (Oxycodone Hcl Immed Release 5 Mg Tablet) 5 mg PO Q4H PRN PRN Reason: Pain, Moderate(Pain Scale 4-6) Sodium Chloride (0.9 % Sodium Chloride Flush 3 Ml Syringe) 3 ml IVFLUSH QSHIFT [facility] Last Admin: 10/10/23 20:28 Dose: 3 ml Documented By: CHRISTAL Torsemide (Torsemide 20 Mg Tablet) 40 mg PO BID [facility]; Protocol Last Admin: 10/10/23 20:28 Dose: Not Given Documented By: CHRISTAL Non-Admin Reason: Patient Refused Labs 10/08/23 17:24 10/08/23 17:24 Labs: Laboratory Results - last 24 hr 10/10/23 10/10/23 14:49 16:16 POC Glucose 77 77 Procedures Date of Service Date of Service: 10/11/23 Progress Note: A&P Assessment and plan (1) Plantar ulcer of left foot: Status: Acute Assessment and Plan: She has 2 ulcers on the left foot as described above She complains of chronic pain on both areas I explained to her the option of proceeding with debridement which should help with healing and pain I explained the technique of the procedure She has a very low threshold for pain and extremely anxious and wants this done under anesthesia We will put her on the schedule for tomorrow for debridement the OR Dialysis today Time Spent With Patient Time: Total time managing care of this patient today ____ minutes. Quality Stroke Does the patient have a stroke diagnosis?: No VTE Prior VTE?: No VTE Risk Level:: Medical - moderate - high VTE Device Contraindication: Treatment Not Indicated VTE Drug Contraindication: N/A - Med Ordered
[2023-10-11] MEDS: 0.9 % Sodium Chloride Flush 3 ML SYRINGE IVFLUSH ×3 (08:22→20:40)
[2023-10-11 10:16] VITALS: BP 118/56; PULSE 86; RESP 18; TEMP 36.3; O2SAT 94
[2023-10-11 10:25] LABS: Glucose, Whole Blood 78 mg/dL (60-115)
[2023-10-11 11:39] LABS: Glucose, Whole Blood 141 mg/dL (60-115)
--- NOTE | 2023-10-11 11:45 | MHC.CM.PN ---
PER MD ROUNDS, PT SCHEDULED FOR OR TOMORROW AND HD TODAY DCP REMAINS HOME WITH [facility] [employer] AND OUTPATIENT HD SISTER TO TRANSPORT
--- NOTE | 2023-10-11 13:49 | HO.PM.IMPN ---
Subjective Subjective Date of Service: 10/11/23 Interval History: No acute issues overnight hemodialysis today without issue Review of Systems Denies chest pain No shortness of breath Denies nausea vomiting diarrhea Denies fever chills Physical Exam Vital Signs: Vital Signs: Last Vital Signs Temp 97.4 F 10/11/23 10:16 Pulse 86 10/11/23 10:16 Resp 18 10/11/23 10:16 BP 118/56 L 10/11/23 10:16 Pulse Ox 94 10/11/23 10:16 O2 Del Method Room Air 10/11/23 10:16 BMI result Body Mass Index 32.5 Const: Other: No acute distress Resp: Other: Clear To auscultation bilaterally no rales rhonchi or wheezes Cardio: Other: No S4; positive S1-S2; no S3 murmurs rubs GI: Other: Soft nontender nondistended normoactive bowel sounds Extrem: Other: No edema right lower extremity Objective Data Active Medications Acetaminophen (Acetaminophen 325 Mg Tablet) 650 mg PO Q6H PRN PRN Reason: Pain, Mild (Pain Scale 1-3), fever or headache Calcium Carbonate (Calcium Carbonate 750 Mg Tab.Chew) 750 mg PO Q4H PRN PRN Reason: Heartburn Calcium Carbonate (Calcium Carbonate 750 Mg Tab.Chew) 300 mg PO TIDWM [facility] Last Admin: 10/11/23 12:04 Dose: Not Given Documented By: SIERRA Non-Admin Reason: Patient Refused Carvedilol (Carvedilol 12.5 Mg Tablet) 12.5 mg PO BID [facility]; Protocol Last Admin: 10/11/23 10:14 Dose: Not Given Documented By: SIERRA Non-Admin Reason: Patient Refused Diphenhydramine HCl (Diphenhydramine Hcl 25 Mg Capsule) 25 mg PO Q6H PRN PRN Reason: Itching Diphenhydramine HCl (Diphenhydramine Hcl 12.5 Mg/5 Ml Liquid) 25 mg PO BEDTIME [facility] Last Admin: 10/10/23 20:22 Dose: 25 mg Documented By: CHRISTAL Glucose (Glucose Gel 15 Gm Gel..Gram.) 15 gm PO Q15M PRN; Protocol PRN Reason: per Hypoglycemia Standing Ord. Heparin Sodium (Porcine) (Heparin Sodium,Porcine 5,000 Unit/Ml Vial) 5,000 unit SUBCUT Q12H [facility] Last Admin: 10/11/23 08:23 Dose: Not Given Documented By: SIERRA Non-Admin Reason: Off unit: Dialysis Hydralazine HCl (Hydralazine Hcl 20 Mg/Ml Vial) 10 mg IVPUSH Q6H PRN; Protocol PRN Reason: SBP > 180 Last Admin: 10/10/23 03:20 Dose: 10 mg Documented By: ETHEL Hydralazine HCl (Hydralazine Hcl 50 Mg Tablet) 50 mg PO TID [facility]; Protocol Last Admin: 10/11/23 10:15 Dose: Not Given Documented By: SIERRA Non-Admin Reason: Patient Refused Hydromorphone HCl (Hydromorphone Hcl 0.5 Mg/0.5 Ml Syringe) 0.5 mg IVPUSH Q4H PRN; Protocol PRN Reason: Pain, Severe (Pain Scale 7-10) Last Admin: 10/11/23 12:12 Dose: 0.5 mg Documented By: SIERRA Dextrose (D10) 250 mls @ 750 mls/hr IV Q15M PRN; Protocol PRN Reason: per Hypoglycemia Standing Ord. Insulin Human Lispro (Insulin Lispro 100 Unit/Ml 3 Ml Vial) 0 unit SUBCUT QIDACHS [facility]; Protocol Last Admin: 10/11/23 11:45 Dose: Not Given Documented By: SIERRA Non-Admin Reason: Not In Room Isosorbide Mononitrate (Isosorbide Mononitrate 30 Mg Tab.Er.24h) 30 mg PO DAILY [facility]; Protocol Last Admin: 10/11/23 10:15 Dose: Not Given Documented By: SIERRA Non-Admin Reason: Patient Refused Levetiracetam (Levetiracetam 1,000 Mg Tablet) 1,000 mg PO DAILY [facility] Last Admin: 10/11/23 10:15 Dose: Not Given Documented By: SIERRA Non-Admin Reason: Patient Refused Magnesium Hydroxide (Milk Of Magnesia 30 Ml Oral.Susp) 30 ml PO DAILY PRN PRN Reason: Constipation Melatonin (Melatonin 3 Mg Tablet) 6 mg PO BEDTIME PRN PRN Reason: Insomnia Nifedipine (Nifedipine Er 60 Mg Tab.Er.24) 60 mg PO DAILY [facility]; Protocol Last Admin: 10/11/23 10:15 Dose: Not Given Documented By: SIERRA Non-Admin Reason: Patient Refused Ondansetron HCl (Ondansetron Odt 4 Mg Tab.Rapdis) 4 mg TRANSLINGU Q8H PRN PRN Reason: Nausea and Vomiting Last Admin: 10/08/23 21:47 Dose: 4 mg Documented By: ETHEL Oxycodone HCl (Oxycodone Hcl Immed Release 5 Mg Tablet) 5 mg PO Q4H PRN PRN Reason: Pain, Moderate(Pain Scale 4-6) Sodium Chloride (0.9 % Sodium Chloride Flush 3 Ml Syringe) 3 ml IVFLUSH QSHIFT [facility] Last Admin: 10/11/23 08:22 Dose: 3 ml Documented By: SIERRA Torsemide (Torsemide 20 Mg Tablet) 40 mg PO BID [facility]; Protocol Last Admin: 10/11/23 10:15 Dose: Not Given Documented By: SIERRA Non-Admin Reason: Patient Refused Labs 10/08/23 17:24 10/08/23 17:24 Labs: Laboratory Results - last 24 hr 10/10/23 10/10/23 10/11/23 14:49 16:16 10:11 POC Glucose 77 77 78 10/11/23 11:30 POC Glucose 141 H Assessment and Plan (1) ESRD (end stage renal disease): Status: Acute (2) Chronic ulcer of left foot due to diabetes mellitus: Status: Acute Plan 33 years old woman with past medical history significant for ESRD on HD, multiple hospitalizations due to noncompliance with hemodialysis, diabetic retinopathy with blindness, peripheral vascular disease (s/p bilat transmetatarsal amputation), poorly controlled hypertension due to noncompliance with medications, chronic respiratory failure on supplemental oxygen, HFrEF, mood disorder, chronic pain with opiate seeking behavior admtited for acute dyspnea r/t volume overload in setting of missed HD 1..ESRD on HD -HD this am -follow renals/divalent 2.Hypertension -acceptable control now that outpatient therapies resumed -adjust as indicated; may need addition of hydralazine 3.Chronic pain disorder -Dilaudid/Oxy -adjust as indicated 4.Chronic bilateral diabetic foot ulcer -to OR in a.m. for debridement by Dr. Rajput -moderate but acceptable cardiovascular risk. There are no prohibitive medical factors at this time 5.Ktu-ruscqpq-usidsjbvi type 2 diabetes -acceptable control on current therapies -lispro correctional scale -adjust as indicated 6.HFrEF with chronic hypoxemic respiratory failure -Resume HD as above for management of volume -continue po diuretics -continue 4 L supplemental O2, home dose 7.CAD/Cardiomyopathy -stable and well compensated Heparin Full code Patient requires ongoing hospitalization for stabilization of volume status and treatment of heart failure Quality Stroke Does the patient have a stroke diagnosis?: No VTE Prior VTE?: No VTE Risk Level:: Medical - moderate - high VTE Device Contraindication: Treatment Not Indicated VTE Drug Contraindication: N/A - Med Ordered
[2023-10-11 16:00] VITALS: BP 160/58; PULSE 84; RESP 18; TEMP 36.6; O2SAT 98
[2023-10-11 16:14] LABS: Glucose, Whole Blood 125 mg/dL (60-115)
--- NOTE | 2023-10-11 17:04 | PC.NURSE ---
pt refuses all PO meds for this RN , pt only taking IV Dilaudid Q4h prn for pain .
[2023-10-11 19:34] VITALS: BP 111/56; PULSE 88; RESP 20; TEMP 36.4; O2SAT 96
[2023-10-11 19:41] LABS: Glucose, Whole Blood 180 mg/dL (60-115)
[2023-10-11] MEDS: diphenhydrAMINE HCl 12.5 MG/5 ML LIQUID 25 MG PO (20:38)
[2023-10-11] MEDS: carvediloL 12.5 MG TABLET PO (20:39)
[2023-10-11 23:25] VITALS: BP 118/60; PULSE 77; RESP 16; TEMP 36; O2SAT 93
[2023-10-12] MEDS: HYDROmorphone HCl 0.5 MG/0.5 ML SYRINGE IVPUSH ×5 (00:46→20:07)
[2023-10-12 08:36] LABS: MANUAL DIFF FLAG NO
[2023-10-12 08:38] LABS: Basophils Percent Auto 0.5 % (0-2); Eosinophils Absolute Auto 0.2 X10*3/uL (0.0-0.4); Eosinophils Percent Auto 3.8 % (0-4); Hematocrit 28.4 % (37.0-47.0); Imm Gran Abs Auto 0.01 X10*3/uL (0.00-0.03); Imm Gran Pct Auto 0.3 % (0.0-0.4); Lymphocytes Absolute Auto 0.5 X10*3/uL (1.2-4.9); Lymphocytes Percent Auto 12.7 % (20-40); Mean Corpuscular HGB Conc 31.7 g/dl (31.0-35.0); Mean Corpuscular Hemoglobin 30.1 pg (27.0-33.0); Monocytes Absolute Auto 0.7 X10*3/uL (0.1-1.2); Monocytes Percent Auto 18.5 % (2-11); Neutrophils Absolute Auto 2.5 x10*3/uL (2.0-8.3); Neutrophils Percent Auto 64.2 % (45-73); Platelet Count 163 X10*3/uL (160-400); Red Blood Count 2.99 X10*6/uL (4.20-5.50); Red Cell Distribution Width 18.3 % (11.0-16.0); White Blood Count 3.9 X10*3/uL (4.8-10.8)
[2023-10-12 08:55] LABS: Alanine Aminotransferase 13 U/L (0-31); Albumin Level 3.4 g/dL (3.5-5.0); Alkaline Phosphatase 176 U/L (39-117); Anion Gap 10 (12-20); Aspartate Amino Transferase 23 U/L (5-31); Bilirubin Total 0.9 mg/dL (0.0-1.0); Blood Urea Nitrogen 10 mg/dL (9-16); Calcium 8.5 mg/dL (8.4-10.2); Carbon Dioxide 31 mmol/L (22-29); Chloride 98 mmol/L (96-108); Creatinine Clr Calc Pharmacy 42.9; Estimated Glomerular Filt Rate 27; Glucose Fasting 113 mg/dL (60-99); Potassium 3.1 mmol/L (3.3-5.1); Sodium 136 mmol/L (135-145); Total Protein 8.4 g/dL (6.5-8.0)
[2023-10-12 09:22] VITALS: BP 132/73; PULSE 82; RESP 12; TEMP 36.4; O2SAT 94
[2023-10-12] MEDS: 0.9 % Sodium Chloride Flush 3 ML SYRINGE IVFLUSH ×3 (09:43→20:18)
[2023-10-12 11:18] LABS: Glucose, Whole Blood 98 mg/dL (60-115)
[2023-10-12 12:07] VITALS: BP 146/73; PULSE 84; RESP 16; TEMP 36.9; O2SAT 99
[2023-10-12 12:35] LABS: Glucose, Whole Blood 97 mg/dL (60-115)
[2023-10-12 12:44] LABS: HCG Quantitative < 2 mIU/mL
--- NOTE | 2023-10-12 13:03 | MHC.SHP ---
Pre-Procedural Eval Section A - 24 Hr Update-Section A only Date of Service: 10/12/23 The patient is an INPATIENT: Yes Changes since office visit: No Cold of Flu in the past 2 weeks, No New Medical Problems, No Changes in Medication and No Patient answered all questions The patient has been examined within 24 hours of the surgical procedure. The History & Physical has been completed within 30 days and I have reviewed it.: Yes Section B - Complete if H&P > 30 days Chief Complaint: missed HD, dyspnea Allergies: Allergies Allergy/AdvReac Type Severity Reaction Status Date / Time morphine [MORPHINE] Allergy Intermediate Itching Verified 10/12/23 12:05 azithromycin [From Zithromax] Allergy Hives Verified 10/12/23 12:05 gabapentin Allergy Facial Verified 10/12/23 12:05 Swelling tramadol Allergy Facial Verified 10/12/23 12:05 Swelling vancomycin Allergy Anaphylaxis Verified 10/12/23 12:05 Plan I have reviewed the history and physical and performed a pertinent physical examination on my patient. No changes have occurred unless specified. Time Spent With Patient Time: Total time managing care of this patient today ____ minutes.
[2023-10-12] MEDS: 0.9 % Sodium Chloride 1,000 ML 50 ML IVCONT (13:15)
--- NOTE | 2023-10-12 13:18 | PC.NURSE ---
Patient has not taken most of PO floor medications for the last few days, refused . Patient states she hasn't peed in 4 days, this is normal for me . Received dialysis this AM, Potassium at end of treatment 3.1. Dr. Tellez and [place] SALAZAR made aware. May proceed with surgery.
--- NOTE | 2023-10-12 13:23 | HO.ANESPROP2 ---
HPI - Anesthesia Eval Consult details Narrative: 33 yo female patient with multiple medical problems including ESRD on dialysis. Non-compliant with medical management. Dialysis this morning. K+ 3.1 Ulcers plantar aspect of Left foot. For debridement. PMFSH Active Problems Active Problems: All Active Problems (Updated 10/12/23 @ 12:25 by Janelle Tellez MD) Acute dyspnea (Acute) Chronic kidney disease (Acute) Hypertension, uncontrolled (Acute) Medical non-compliance (Acute) Diabetic foot infection (Acute) Opioid dependence (Acute) Chronic ulcer of left foot due to diabetes mellitus (Acute) Cerebral infarction (Acute) Hyponatremia (Acute) Prolonged QT interval (Acute) Pericarditis (Acute) Unspecified hypertension, condition or complication (Acute) Plantar ulcer of left foot (Acute) ESRD (end stage renal disease) (Acute) Renal failure (Acute) PAD (peripheral artery disease) (Acute) EF 35-40% - Echo 12/2922 Itchy- scratching all over body Past Medical History Medical History Plantar ulcer of left foot Major depressive disorder, single episode, severe ESRD (end stage renal disease) Non-compliance with renal dialysis Hypertensive urgency MDD (major depressive disorder), recurrent episode MDD (major depressive disorder) Renal failure Foot ulcer CKD (chronic kidney disease) Hypertension Diabetic foot Hyperkalemia Vomiting Renal failure Hypertension Migraine Chronic pain ESRD on dialysis Non-compliance with renal dialysis Hypertension End-stage renal disease (ESRD) Gastroparesis Diabetic foot ulcer associated with type 2 diabetes mellitus Hypertensive emergency Diabetes ESRD needing dialysis Cardiomyopathy HFrEF (heart failure with reduced ejection fraction) Metabolic acidosis delivery delivered Anemia in chronic kidney disease (CKD) Anemia CKD (chronic kidney disease) Headache, migraine Abnormal finding on echocardiogram Elevated troponin Chest pain Acute worsening of stage 3 chronic kidney disease Generalized edema Sepsis Cellulitis Pleural effusion CHF (congestive heart failure) (~06/07/22) Tachycardia Atypical chest pain Bone infection PAD (peripheral artery disease) Severe anemia Cellulitis and abscess of foot DM foot ulcer Osteomyelitis Asthma Depression with anxiety Diabetic retinopathy Type 2 diabetes mellitus with hyperglycemia, with long-term current use of insulin Blind right eye Diabetes Back pain Family History Family History Mother Coronary artery disease Myocardial infarction Stroke Diabetes mellitus Father Myocardial infarction Family history of problems with anesthesia: No Surgical History Surgical History Tubal ligation status Previous section Hx laparoscopic cholecystectomy Hx of surgical procedure (~09/11/23) 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 History of Problems with Anesthesia: No Social History Social History Household Members: Spouse and Family Household Members Other:: sister Housing: Apartment Do you presently have visiting nurse or other home services: No Unable to assess alcohol history related to: Unknown Alcohol intake: never 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 Patient Tobacco Use Status: Never used Tobacco e-Cigarette/Vaping Use: Never Used Second Hand Smoke Exposure: No Advance Directives Date on File: 03/08/20 service: No Current occupational status: unemployed and disabled Gender identity: Female Meds Allergies Allergy/AdvReac Type Severity Reaction Status Date / Time morphine [MORPHINE] Allergy Intermediate Itching Verified 10/12/23 12:05 azithromycin [From Zithromax] Allergy Hives Verified 10/12/23 12:05 gabapentin Allergy Facial Verified 10/12/23 12:05 Swelling tramadol Allergy Facial Verified 10/12/23 12:05 Swelling vancomycin Allergy Anaphylaxis Verified 10/12/23 12:05 Active Medications: Current Medications Acetaminophen (Acetaminophen 325 Mg Tablet) 650 mg PO Q6H PRN PRN Reason: Pain, Mild (Pain Scale 1-3), fever or headache Calcium Carbonate (Calcium Carbonate 750 Mg Tab.Chew) 750 mg PO Q4H PRN PRN Reason: Heartburn Calcium Carbonate (Calcium Carbonate 750 Mg Tab.Chew) 300 mg PO TIDWM [facility] Last Admin: 10/12/23 12:00 Dose: Not Given Carvedilol (Carvedilol 12.5 Mg Tablet) 12.5 mg PO BID [facility]; Protocol Last Admin: 10/12/23 09:44 Dose: Not Given Diphenhydramine HCl (Diphenhydramine Hcl 25 Mg Capsule) 25 mg PO Q6H PRN PRN Reason: Itching Diphenhydramine HCl (Diphenhydramine Hcl 12.5 Mg/5 Ml Liquid) 25 mg PO BEDTIME [facility] Last Admin: 10/11/23 20:38 Dose: 25 mg Glucose (Glucose Gel 15 Gm Gel..Gram.) 15 gm PO Q15M PRN; Protocol PRN Reason: per Hypoglycemia Standing Ord. Heparin Sodium (Porcine) (Heparin Sodium,Porcine 5,000 Unit/Ml Vial) 5,000 unit SUBCUT Q12H [facility] Last Admin: 10/12/23 09:43 Dose: Not Given Hydralazine HCl (Hydralazine Hcl 20 Mg/Ml Vial) 10 mg IVPUSH Q6H PRN; Protocol PRN Reason: SBP > 180 Last Admin: 10/10/23 03:20 Dose: 10 mg Hydralazine HCl (Hydralazine Hcl 50 Mg Tablet) 50 mg PO TID [facility]; Protocol Last Admin: 10/12/23 09:44 Dose: Not Given Hydromorphone HCl (Hydromorphone Hcl 0.5 Mg/0.5 Ml Syringe) 0.5 mg IVPUSH Q4H PRN; Protocol PRN Reason: Pain, Severe (Pain Scale 7-10) Last Admin: 10/12/23 09:39 Dose: 0.5 mg Dextrose (D10) 250 mls @ 750 mls/hr IV Q15M PRN; Protocol PRN Reason: per Hypoglycemia Standing Ord. Sodium Chloride (Ns) 1,000 mls @ 50 mls/hr IVCONT .Q20H [facility] Last Admin: 10/12/23 13:15 Dose: 50 mls/hr Insulin Human Lispro (Insulin Lispro 100 Unit/Ml 3 Ml Vial) 0 unit SUBCUT QIDACHS [facility]; Protocol Last Admin: 10/12/23 11:59 Dose: Not Given Isosorbide Mononitrate (Isosorbide Mononitrate 30 Mg Tab.Er.24h) 30 mg PO DAILY [facility]; Protocol Last Admin: 10/12/23 09:44 Dose: Not Given Levetiracetam (Levetiracetam 1,000 Mg Tablet) 1,000 mg PO DAILY [facility] Last Admin: 10/12/23 09:44 Dose: Not Given Magnesium Hydroxide (Milk Of Magnesia 30 Ml Oral.Susp) 30 ml PO DAILY PRN PRN Reason: Constipation Melatonin (Melatonin 3 Mg Tablet) 6 mg PO BEDTIME PRN PRN Reason: Insomnia Nifedipine (Nifedipine Er 60 Mg Tab.Er.24) 60 mg PO DAILY [facility]; Protocol Last Admin: 10/12/23 09:44 Dose: Not Given Ondansetron HCl (Ondansetron Odt 4 Mg Tab.Rapdis) 4 mg TRANSLINGU Q8H PRN PRN Reason: Nausea and Vomiting Last Admin: 10/08/23 21:47 Dose: 4 mg Oxycodone HCl (Oxycodone Hcl Immed Release 5 Mg Tablet) 5 mg PO Q4H PRN PRN Reason: Pain, Moderate(Pain Scale 4-6) Sodium Chloride (0.9 % Sodium Chloride Flush 3 Ml Syringe) 3 ml IVFLUSH QSHIFT [facility] Last Admin: 10/12/23 09:43 Dose: 3 ml Torsemide (Torsemide 20 Mg Tablet) 40 mg PO BID [facility]; Protocol Last Admin: 10/12/23 10:01 Dose: Not Given Home Medications ?Medication ?Instructions ?Recorded ?Confirmed ?Last Taken ?Type carvedilol 12.5 mg tablet 12.5 mg PO BID 06/05/23 10/08/23 10/08/23 History isosorbide mononitrate 30 mg 30 mg PO DAILY 06/05/23 10/08/23 10/08/23 History tablet,extended release 24 hr torsemide 20 mg tablet 40 mg PO BID 06/05/23 10/08/23 10/08/23 History levetiracetam 1,000 mg tablet 1,000 mg PO DAILY 06/17/23 10/08/23 10/08/23 History oxycodone 5 mg tablet 5 mg PO Q8H 06/17/23 10/08/23 10/08/23 History calcium carbonate (Calcium Antacid) 1 tab PO TIDWM 08/28/23 10/08/23 10/08/23 History diphenhydramine HCl 12.5 mg/5 mL 25 mg PO BEDTIME 10/08/23 10/08/23 Unknown History oral elixir nifedipine 60 mg tablet,extended 60 mg PO DAILY 10/08/23 10/08/23 10/08/23 History release 24 hr Exam Height,Weight and Vital Signs: Height 5 ft 6 in Weight 91.3 kg Last Vital Signs Temp 98.4 F 10/12/23 12:07 Pulse 84 10/12/23 12:07 Resp 16 10/12/23 12:07 BP 146/73 H 10/12/23 12:07 Pulse Ox 99 10/12/23 12:07 O2 Del Method Room Air 10/12/23 12:07 Pertinent Lab Results Pertinent Lab Results: Laboratory Tests 10/08/23 10/08/23 10/09/23 17:24 21:15 07:13 WBC 4.7 L RBC 2.70 L Hgb 8.1 L Hct 25.7 L MCV 95.2 MCH 30.0 MCHC 31.5 RDW 17.1 H Plt Count 186 D MPV 12.8 H Immature Gran % (Auto) 0.4 Neut % (Auto) 78.7 H Lymph % (Auto) 8.9 L [place] % (Auto) 8.9 Eos % (Auto) 2.5 Baso % (Auto) 0.6 Lymph # (Auto) 0.4 L [place] # (Auto) 0.4 Eos # (Auto) 0.1 Baso # (Auto) 0.0 Abs Immat Gran (auto) 0.02 Absolute Neuts (auto) 3.7 Absolute Nucleated RBC 0.000 Nucleated RBC % (auto) 0.0 Sodium 136 Potassium 5.0 Chloride 101 Carbon Dioxide 16 L Anion Gap 24 H BUN 90 H Creatinine 8.20 H* Estim Creat Clear Calc 10.9 Estimated GFR 6 POC Glucose 94 71 Random Glucose 105 Fasting Glucose Calcium 8.5 Magnesium 2.8 H Total Bilirubin 1.3 H Direct Bilirubin 0.7 H AST 20 ALT 15 Alkaline Phosphatase 187 H Troponin I High Sens 22.5 H Total Protein 8.0 Albumin 3.3 L Beta HCG, Quant Ethyl Alcohol < 10 10/09/23 10/09/23 10/10/23 15:59 20:28 07:13 WBC RBC Hgb Hct MCV MCH MCHC RDW Plt Count MPV Immature Gran % (Auto) Neut % (Auto) Lymph % (Auto) [place] % (Auto) Eos % (Auto) Baso % (Auto) Lymph # (Auto) [place] # (Auto) Eos # (Auto) Baso # (Auto) Abs Immat Gran (auto) Absolute Neuts (auto) Absolute Nucleated RBC Nucleated RBC % (auto) Sodium Potassium Chloride Carbon Dioxide Anion Gap BUN Creatinine Estim Creat Clear Calc Estimated GFR POC Glucose 78 82 74 Random Glucose Fasting Glucose Calcium Magnesium Total Bilirubin Direct Bilirubin AST ALT Alkaline Phosphatase Troponin I High Sens Total Protein Albumin Beta HCG, Quant Ethyl Alcohol 08/14/24 08/14/24 08/15/24 14:49 16:16 10:11 WBC RBC Hgb Hct MCV MCH MCHC RDW Plt Count MPV Immature Gran % (Auto) Neut % (Auto) Lymph % (Auto) [place] % (Auto) Eos % (Auto) Baso % (Auto) Lymph # (Auto) [place] # (Auto) Eos # (Auto) Baso # (Auto) Abs Immat Gran (auto) Absolute Neuts (auto) Absolute Nucleated RBC Nucleated RBC % (auto) Sodium Potassium Chloride Carbon Dioxide Anion Gap BUN Creatinine Estim Creat Clear Calc Estimated GFR POC Glucose 77 77 78 Random Glucose Fasting Glucose Calcium Magnesium Total Bilirubin Direct Bilirubin AST ALT Alkaline Phosphatase Troponin I High Sens Total Protein Albumin Beta HCG, Quant Ethyl Alcohol 10/11/23 10/11/23 10/11/23 11:30 16:11 19:36 WBC RBC Hgb Hct MCV MCH MCHC RDW Plt Count MPV Immature Gran % (Auto) Neut % (Auto) Lymph % (Auto) [place] % (Auto) Eos % (Auto) Baso % (Auto) Lymph # (Auto) [place] # (Auto) Eos # (Auto) Baso # (Auto) Abs Immat Gran (auto) Absolute Neuts (auto) Absolute Nucleated RBC Nucleated RBC % (auto) Sodium Potassium Chloride Carbon Dioxide Anion Gap BUN Creatinine Estim Creat Clear Calc Estimated GFR POC Glucose 141 H 125 H 180 H Random Glucose Fasting Glucose Calcium Magnesium Total Bilirubin Direct Bilirubin AST ALT Alkaline Phosphatase Troponin I High Sens Total Protein Albumin Beta HCG, Quant Ethyl Alcohol 10/12/23 10/12/23 10/12/23 08:31 11:06 12:31 WBC 3.9 L RBC 2.99 L Hgb 9.0 L Hct 28.4 L MCV 95.0 MCH 30.1 MCHC 31.7 RDW 18.3 H Plt Count 163 MPV 11.0 Immature Gran % (Auto) 0.3 Neut % (Auto) 64.2 Lymph % (Auto) 12.7 L [place] % (Auto) 18.5 H Eos % (Auto) 3.8 Baso % (Auto) 0.5 Lymph # (Auto) 0.5 L [place] # (Auto) 0.7 Eos # (Auto) 0.2 Baso # (Auto) 0.0 Abs Immat Gran (auto) 0.01 Absolute Neuts (auto) 2.5 Absolute Nucleated RBC 0.000 Nucleated RBC % (auto) 0.0 Sodium 136 Potassium 3.1 L D Chloride 98 Carbon Dioxide 31 H Anion Gap 10 L BUN 10 Creatinine 2.08 H Estim Creat Clear Calc 42.9 Estimated GFR 27 POC Glucose 98 97 Random Glucose Fasting Glucose 113 H Calcium 8.5 Magnesium Total Bilirubin 0.9 Direct Bilirubin AST 23 ALT 13 Alkaline Phosphatase 176 H Troponin I High Sens Total Protein 8.4 H Albumin 3.4 L Beta HCG, Quant < 2 Ethyl Alcohol Narrative Narrative: Echo 12/2022: Moderate LV systolic function with LVEF 35-40% with moderate LVH and impaired relaxation filling pattern Airway Mallampati Class: II TM Dist: >3cm Neck ROM: Full Loose/Missing/Broken Teeth: Yes (Broken tooth top Right back. Missing teeth bottom Right and Left back. Denies loose teeth) Heart: RRR +systolic murmur Lungs: CTAB Assessment and Plan Assessment Anesthesia Assessment: Anesthesia Plan Discussed and Chart Reviewed Final Anesthetic Review Family History of Problems with Anesthesia: No History of Problems with Anesthesia: No NPO: Yes ASA Class: III Final Preanesthetic Review: No Changes in Pt Med Stat, Meds/Allgs Chart Reviewed, Consent Obtained/Reviewed and Anes Risks/Benef Reviewed Patient Risk: Intermediate Procedure Risk: Low Assessment/Block/Sedation in SS: Assess/Block/Sedation-SS Anesthetic Plan Anesthetic Plan: GA and TIVA Disposition: Standard PACU and Inp. Admit - Standard Bed
--- NOTE | 2023-10-12 13:42 | W.PM.OPN ---
Operative Note Operative Note Date of Service: 10/12/23 Narrative: Preop diagnosis: ulcer with eschar left heel posteriorly,; plantar ulcer with thick callus, left midfoot Postop diagnosis: the same Procedure: Excisional debridement, left heel ulcer and plantar ulcer to remove full-thickness of the skin and part of the subcutaneous layer Surgeon: Tu Rajput MD The patient is a 33 year female, with peripheral her disease, incisional disease, with a chronic plantar ulcer with a thick callus on the left. She also had heel ulcer with an eschar posteriorly on the same foot. In view of chronic pain and poor healing she wanted to proceed with excisional debridement. She understood the risks, benefits, and alternatives and had given consent She was brought to the operating room placed supine under monitored anesthesia care. The left foot was prepped and draped in usual sterile fashion. A surgical time-out was done. The patient was receiving IV antibiotics but was reported to be refusing all medications in med surge Examination of the left foot showed this ulcer with eschar on the posterior heel area measuring about 2 by 2 cm. There was note of a plantar ulcer measuring about 3 x 3 cm with very thick callus. I proceeded to do sharp excisional debridement of the eschar on the left heel to remove full-thickness of the skin down to viable tissue using a blade 15 as well as curved Marks scissors. Hemostasis was ensured with electrocautery The thick callus on the plantar ulcer was also excised in the same fashion. Full-thickness of the skin was removed as well. The debrided area was about 3 x 3 cm I applied silver alginate dressings on both debrided ulcers. Dry dressings were applied and the foot was wrapped in a Kerlix roll. The procedure was completed. She tolerated procedure well. There were no immediate complications. Estimated blood loss was about 10 cc The patient was then transferred to the recovery room with stable vital signs
--- NOTE | 2023-10-12 13:51 | HO.PM.IMPN ---
Subjective Subjective Date of Service: 10/13/23 Interval History: Being followed for fluid overload due to missing hemodialysis and follow-up on diabetic foot ulcer. refusing antihypertensives, good pain control with iv Dilaudid, NPO for debridement of left foot diabetic ulcer in OR by Dr. Rajput Review of Systems All other system reviewed and are negative. Physical Exam Vital Signs: Vital Signs: Last Vital Signs Temp 98.4 F 10/12/23 12:07 Pulse 84 10/12/23 12:07 Resp 16 10/12/23 12:07 BP 146/73 H 10/12/23 12:07 Pulse Ox 99 10/12/23 12:07 O2 Del Method Room Air 10/12/23 12:07 BMI result Body Mass Index 32.5 Const: Other: Gen: Awake alert in no acute distress HEENT: blind Neck: supple, no JVD Lungs: clear to auscultation bilaterally Heart: regular rate and rhythm, no murmurs Abd: soft, non-tender, non-distended Ext: s/p R TMA, dressing in place both feet , no drainage noted , left foot plantar wound with thick callus, tender to palpation, superficial ulcer on posterior aspect of left heel/eschar. Neuro: alert and oriented x3, no focal findings Psych: Appropriate affect Objective Data Active Medications Acetaminophen (Acetaminophen 325 Mg Tablet) 650 mg PO Q6H PRN PRN Reason: Pain, Mild (Pain Scale 1-3), fever or headache Calcium Carbonate (Calcium Carbonate 750 Mg Tab.Chew) 750 mg PO Q4H PRN PRN Reason: Heartburn Calcium Carbonate (Calcium Carbonate 750 Mg Tab.Chew) 300 mg PO TIDWM [facility] Last Admin: 10/12/23 12:00 Dose: Not Given Documented By: RUTH Non-Admin Reason: NPO Carvedilol (Carvedilol 12.5 Mg Tablet) 12.5 mg PO BID [facility]; Protocol Last Admin: 10/12/23 09:44 Dose: Not Given Documented By: RUTH Non-Admin Reason: Patient Refused Diphenhydramine HCl (Diphenhydramine Hcl 25 Mg Capsule) 25 mg PO Q6H PRN PRN Reason: Itching Diphenhydramine HCl (Diphenhydramine Hcl 12.5 Mg/5 Ml Liquid) 25 mg PO BEDTIME [facility] Last Admin: 10/11/23 20:38 Dose: 25 mg Documented By: CHRISTAL Fentanyl (Fentanyl Citrate/Pf 100 Mcg/2 Ml Vial) 25 mcg IVPUSH Q5M PRN PRN Reason: Pain, Severe (Pain Scale 7-10) Stop: 10/12/23 19:41 Glucose (Glucose Gel 15 Gm Gel..Gram.) 15 gm PO Q15M PRN; Protocol PRN Reason: per Hypoglycemia Standing Ord. Heparin Sodium (Porcine) (Heparin Sodium,Porcine 5,000 Unit/Ml Vial) 5,000 unit SUBCUT Q12H [facility] Last Admin: 10/12/23 09:43 Dose: Not Given Documented By: RUTH Non-Admin Reason: pre op Hydralazine HCl (Hydralazine Hcl 20 Mg/Ml Vial) 10 mg IVPUSH Q6H PRN; Protocol PRN Reason: SBP > 180 Last Admin: 10/10/23 03:20 Dose: 10 mg Documented By: ETHEL Hydralazine HCl (Hydralazine Hcl 50 Mg Tablet) 50 mg PO TID [facility]; Protocol Last Admin: 10/12/23 09:44 Dose: Not Given Documented By: RUTH Non-Admin Reason: Patient Refused Hydromorphone HCl (Hydromorphone Hcl 0.5 Mg/0.5 Ml Syringe) 0.5 mg IVPUSH Q4H PRN; Protocol PRN Reason: Pain, Severe (Pain Scale 7-10) Last Admin: 10/12/23 09:39 Dose: 0.5 mg Documented By: RUTH Dextrose (D10) 250 mls @ 750 mls/hr IV Q15M PRN; Protocol PRN Reason: per Hypoglycemia Standing Ord. Sodium Chloride (Ns) 1,000 mls @ 50 mls/hr IVCONT .Q20H [facility] Last Admin: 10/12/23 13:15 Dose: 50 mls/hr Documented By: WOODY Insulin Human Lispro (Insulin Lispro 100 Unit/Ml 3 Ml Vial) 0 unit SUBCUT QIDACHS [facility]; Protocol Last Admin: 10/12/23 11:59 Dose: Not Given Documented By: RUTH Non-Admin Reason: No Insulin Coverage Isosorbide Mononitrate (Isosorbide Mononitrate 30 Mg Tab.Er.24h) 30 mg PO DAILY [facility]; Protocol Last Admin: 10/12/23 09:44 Dose: Not Given Documented By: RUTH Non-Admin Reason: Patient Refused Levetiracetam (Levetiracetam 1,000 Mg Tablet) 1,000 mg PO DAILY [facility] Last Admin: 10/12/23 09:44 Dose: Not Given Documented By: RUTH Non-Admin Reason: Patient Refused Magnesium Hydroxide (Milk Of Magnesia 30 Ml Oral.Susp) 30 ml PO DAILY PRN PRN Reason: Constipation Melatonin (Melatonin 3 Mg Tablet) 6 mg PO BEDTIME PRN PRN Reason: Insomnia Nifedipine (Nifedipine Er 60 Mg Tab.Er.24) 60 mg PO DAILY [facility]; Protocol Last Admin: 10/12/23 09:44 Dose: Not Given Documented By: RUTH Non-Admin Reason: Patient Refused Ondansetron HCl (Ondansetron Odt 4 Mg Tab.Rapdis) 4 mg TRANSLINGU Q8H PRN PRN Reason: Nausea and Vomiting Last Admin: 10/08/23 21:47 Dose: 4 mg Documented By: ETHEL Ondansetron HCl (Ondansetron Hcl 4 Mg/2 Ml Vial) 4 mg IVPUSH ONCE PRN PRN Reason: Nausea and Vomiting Stop: 10/12/23 19:42 Oxycodone HCl (Oxycodone Hcl Immed Release 5 Mg Tablet) 5 mg PO Q4H PRN PRN Reason: Pain, Moderate(Pain Scale 4-6) Oxycodone HCl (Oxycodone Hcl Immed Release 5 Mg Tablet) 5 mg PO ONCE PRN PRN Reason: Pain, Moderate(Pain Scale 4-6) Stop: 10/12/23 19:41 Sodium Chloride (0.9 % Sodium Chloride Flush 3 Ml Syringe) 3 ml IVFLUSH QSHIFT [facility] Last Admin: 10/12/23 09:43 Dose: 3 ml Documented By: RUTH Torsemide (Torsemide 20 Mg Tablet) 40 mg PO BID [facility]; Protocol Last Admin: 10/12/23 10:01 Dose: Not Given Documented By: RUTH Non-Admin Reason: Patient Refused Labs 10/12/23 08:31 10/12/23 08:31 Labs: Laboratory Results - last 24 hr 10/11/23 10/11/2324 16:11 19:36 08:31 MCV 95.0 MCH 30.1 MCHC 31.7 RDW 18.3 H Plt Count 163 MPV 11.0 Immature Gran % (Auto) 0.3 Neut % (Auto) 64.2 Lymph % (Auto) 12.7 L [place] % (Auto) 18.5 H Eos % (Auto) 3.8 Baso % (Auto) 0.5 Lymph # (Auto) 0.5 L [place] # (Auto) 0.7 Eos # (Auto) 0.2 Baso # (Auto) 0.0 Abs Immat Gran (auto) 0.01 Absolute Neuts (auto) 2.5 Absolute Nucleated RBC 0.000 Nucleated RBC % (auto) 0.0 Anion Gap 10 L Estim Creat Clear Calc 42.9 Estimated GFR 27 POC Glucose 125 H 180 H Fasting Glucose 113 H Calcium 8.5 Total Bilirubin 0.9 AST 23 ALT 13 Alkaline Phosphatase 176 H Total Protein 8.4 H Albumin 3.4 L Beta HCG, Quant < 2 10/12/23 10/12/23 11:06 12:31 MCV MCH MCHC RDW Plt Count MPV Immature Gran % (Auto) Neut % (Auto) Lymph % (Auto) [place] % (Auto) Eos % (Auto) Baso % (Auto) Lymph # (Auto) [place] # (Auto) Eos # (Auto) Baso # (Auto) Abs Immat Gran (auto) Absolute Neuts (auto) Absolute Nucleated RBC Nucleated RBC % (auto) Anion Gap Estim Creat Clear Calc Estimated GFR POC Glucose 98 97 Fasting Glucose Calcium Total Bilirubin AST ALT Alkaline Phosphatase Total Protein Albumin Beta HCG, Quant Assessment and Plan (1) ESRD (end stage renal disease): Status: Acute (2) Chronic ulcer of left foot due to diabetes mellitus: Status: Acute Plan 33 years old woman with past medical history significant for ESRD on HD, multiple hospitalizations due to noncompliance with hemodialysis, diabetic retinopathy with blindness, peripheral vascular disease (s/p bilat transmetatarsal amputation), poorly controlled hypertension due to noncompliance with medications, chronic respiratory failure on supplemental oxygen, HFrEF, mood disorder, chronic pain with opiate seeking behavior admtited for acute dyspnea r/t volume overload in setting of missed HD 1..ESRD on HD -follow labs, on hemodialysis [facility] Wednesday Fridays, being followed by [facility] 2.Hypertension -stable blood pressure, refusing medications, discussed importance of compliance with home medication -adjust as indicated 3.Chronic pain disorder -continue IV Dilaudid/Oxy -adjust as indicated 4.Chronic bilateral diabetic foot ulcer -to OR for debridement by Dr. Rajput 5.Irj-[id number] type 2 diabetes -lispro correctional scale, stable blood sugar 6.HFrEF with chronic hypoxic respiratory failure - stable, continue torsemide 40 b.i.d. 7.CAD/Cardiomyopathy -stable and well compensated 8. Acute hypokalemia likely due to diuretics will replete and follow labs 9. As per patient she is no longer taking Keppra, no history of seizure disorder, EEG 06/16/2023 showed mild abnormality suggestive of tendency for seizure disorder. will dc keppra. Heparin Full code Patient requires ongoing hospitalization for stabilization of volume status , and debridement left foot wounds in OR, treatment can not be provided in less acute setting. Quality Stroke Does the patient have a stroke diagnosis?: No VTE Prior VTE?: No VTE Risk Level:: Medical - moderate - high VTE Device Contraindication: Treatment Not Indicated VTE Drug Contraindication: N/A - Med Ordered
[2023-10-12 13:52] VITALS: BP 120/62; PULSE 76; RESP 14; TEMP 36.2; O2SAT 95
[2023-10-12 14:07] VITALS: BP 131/73; PULSE 78; RESP 14; TEMP 36.2; O2SAT 99
--- NOTE | 2023-10-12 14:13 | MHC.CM.PN ---
EMR reviewed and per MD rounds, pt is not medically cleared for discharge due to surgical excisional debridement of left heel ulcer and plantar ulcer today.
[2023-10-12 14:54] VITALS: BP 147/77; PULSE 81; RESP 16; TEMP 36.6; O2SAT 97
--- NOTE | 2023-10-12 16:14 | PC.NURSE ---
Refusing AM meds, 3pm hydralazine. Dr. Arora notified.
[2023-10-12 16:30] LABS: Glucose, Whole Blood 124 mg/dL (60-115)
[2023-10-12] MEDS: Potassium Chloride ER 10 MEQ TABLET.ER 30 MEQ PO (17:30)
[2023-10-12 20:11] VITALS: BP 155/81; PULSE 83
[2023-10-12] MEDS: hydrALAZINE HCl 50 MG TABLET PO (20:11)
[2023-10-12] MEDS: Torsemide 20 MG TABLET 40 MG PO (20:11)
[2023-10-12] MEDS: carvediloL 12.5 MG TABLET PO (20:11)
[2023-10-12] MEDS: diphenhydrAMINE HCl 12.5 MG/5 ML LIQUID 25 MG PO (20:12)
[2023-10-12 20:19] LABS: Glucose, Whole Blood 154 mg/dL (60-115)
[2023-10-13] VITALS: BP 103/47; PULSE 81; RESP 16; TEMP 36.6; O2SAT 95
[2023-10-13] MEDS: HYDROmorphone HCl 0.5 MG/0.5 ML SYRINGE IVPUSH ×6 (00:22→20:27)
[2023-10-13 07:37] LABS: Glucose, Whole Blood 134 mg/dL (60-115)
[2023-10-13 07:47] VITALS: BP 149/79; PULSE 83; RESP 16; TEMP 36.5; O2SAT 97
[2023-10-13] MEDS: Isosorbide Mononitrate 30 MG TAB.ER.24H PO (08:30)
[2023-10-13] MEDS: hydrALAZINE HCl 50 MG TABLET PO ×3 (08:30→20:28)
[2023-10-13] MEDS: NIFEdipine ER 60 MG TAB.ER.24 PO (08:30)
[2023-10-13] MEDS: carvediloL 12.5 MG TABLET PO ×2 (08:30→20:28)
[2023-10-13] MEDS: Torsemide 20 MG TABLET 40 MG PO (08:31)
[2023-10-13] MEDS: 0.9 % Sodium Chloride Flush 3 ML SYRINGE IVFLUSH ×3 (08:37→20:32)
[2023-10-13 11:10] LABS: Glucose, Whole Blood 162 mg/dL (60-115)
[2023-10-13] MEDS: Insulin Lispro 100 UNIT/ML 3 ML VIAL SUBCUT (11:21)
--- NOTE | 2023-10-13 13:08 | P.PNIM_ITS ---
Subjective Subjective Date of Service: 10/13/23 Interval History: Good pain control with IV Dilaudid and oxycodone, denies fever, no chills, took morning meds blood pressure is stable, no acute events overnight. Review of Systems All other system reviewed and are negative. Physical Exam 2 Vital Signs: Vital Signs: Last Vital Signs Temp 97.7 F 10/13/23 07:47 Pulse 83 10/13/23 07:47 Resp 16 10/13/23 07:47 BP 149/79 H 10/13/23 07:47 Pulse Ox 97 10/13/23 07:47 O2 Del Method Room Air 10/13/23 07:47 O2 Flow Rate 2 10/12/23 14:07 BMI result Body Mass Index 32.5 Const: Other: Gen: Awake alert in no acute distress HEENT: blind Neck: supple, no JVD Lungs: clear to auscultation bilaterally Heart: regular rate and rhythm, no murmurs Abd: soft, non-tender, non-distended Ext: s/p R TMA, dressing in place both feet . Neuro: alert and oriented x3, no focal findings Psych: Appropriate affect Objective Data Active Medications Acetaminophen (Acetaminophen 325 Mg Tablet) 650 mg PO Q6H PRN PRN Reason: Pain, Mild (Pain Scale 1-3), fever or headache Calcium Carbonate (Calcium Carbonate 750 Mg Tab.Chew) 750 mg PO Q4H PRN PRN Reason: Heartburn Calcium Carbonate (Calcium Carbonate 750 Mg Tab.Chew) 300 mg PO TIDWM [facility] Last Admin: 10/13/23 11:36 Dose: Not Given Documented By: KERRIE Non-Admin Reason: Patient Refused Carvedilol (Carvedilol 12.5 Mg Tablet) 12.5 mg PO BID [facility]; Protocol Last Admin: 10/13/23 08:30 Dose: 12.5 mg Documented By: KERRIE Diphenhydramine HCl (Diphenhydramine Hcl 25 Mg Capsule) 25 mg PO Q6H PRN PRN Reason: Itching Diphenhydramine HCl (Diphenhydramine Hcl 12.5 Mg/5 Ml Liquid) 25 mg PO BEDTIME [facility] Last Admin: 10/12/23 20:12 Dose: 25 mg Documented By: RUSSELL Glucose (Glucose Gel 15 Gm Gel..Gram.) 15 gm PO Q15M PRN; Protocol PRN Reason: per Hypoglycemia Standing Ord. Heparin Sodium (Porcine) (Heparin Sodium,Porcine 5,000 Unit/Ml Vial) 5,000 unit SUBCUT Q12H [facility] Last Admin: 10/13/23 08:28 Dose: Not Given Documented By: KERRIE Non-Admin Reason: Patient Refused Hydralazine HCl (Hydralazine Hcl 20 Mg/Ml Vial) 10 mg IVPUSH Q6H PRN; Protocol PRN Reason: SBP > 180 Last Admin: 10/10/23 03:20 Dose: 10 mg Documented By: ETHEL Hydralazine HCl (Hydralazine Hcl 50 Mg Tablet) 50 mg PO TID [facility]; Protocol Last Admin: 10/13/23 08:30 Dose: 50 mg Documented By: KERRIE Hydromorphone HCl (Hydromorphone Hcl 0.5 Mg/0.5 Ml Syringe) 0.5 mg IVPUSH Q4H PRN; Protocol PRN Reason: Pain, Severe (Pain Scale 7-10) Last Admin: 10/13/23 12:27 Dose: 0.5 mg Documented By: KERRIE Dextrose (D10) 250 mls @ 750 mls/hr IV Q15M PRN; Protocol PRN Reason: per Hypoglycemia Standing Ord. Insulin Human Lispro (Insulin Lispro 100 Unit/Ml 3 Ml Vial) 0 unit SUBCUT QIDACHS [facility]; Protocol Last Admin: 10/13/23 11:21 Dose: 2 unit Documented By: KERRIE Isosorbide Mononitrate (Isosorbide Mononitrate 30 Mg Tab.Er.24h) 30 mg PO DAILY [facility]; Protocol Last Admin: 10/13/23 08:30 Dose: 30 mg Documented By: KERRIE Magnesium Hydroxide (Milk Of Magnesia 30 Ml Oral.Susp) 30 ml PO DAILY PRN PRN Reason: Constipation Melatonin (Melatonin 3 Mg Tablet) 6 mg PO BEDTIME PRN PRN Reason: Insomnia Nifedipine (Nifedipine Er 60 Mg Tab.Er.24) 60 mg PO DAILY [facility]; Protocol Last Admin: 10/13/23 08:30 Dose: 60 mg Documented By: KERRIE Ondansetron HCl (Ondansetron Odt 4 Mg Tab.Rapdis) 4 mg TRANSLINGU Q8H PRN PRN Reason: Nausea and Vomiting Last Admin: 10/08/23 21:47 Dose: 4 mg Documented By: ETHEL Oxycodone HCl (Oxycodone Hcl Immed Release 5 Mg Tablet) 5 mg PO Q4H PRN PRN Reason: Pain, Moderate(Pain Scale 4-6) Sodium Chloride (0.9 % Sodium Chloride Flush 3 Ml Syringe) 3 ml IVFLUSH QSHIFT [facility] Last Admin: 10/13/23 08:37 Dose: 3 ml Documented By: KERRIE Torsemide (Torsemide 20 Mg Tablet) 40 mg PO BID [facility]; Protocol Last Admin: 10/13/23 08:31 Dose: 40 mg Documented By: KERRIE Labs 10/12/23 08:31 10/12/23 08:31 Labs: Laboratory Results - last 24 hr 10/12/23 10/12/23 10/13/23 16:25 20:15 07:12 POC Glucose 124 H 154 H 134 H 10/13/23 11:03 POC Glucose 162 H Assessment and Plan (1) Chronic kidney disease: Status: Acute (2) Hypertension, uncontrolled: Status: Acute (3) Medical non-compliance: Status: Acute Plan 33 years old woman with past medical history significant for ESRD on HD, multiple hospitalizations due to noncompliance with hemodialysis, diabetic retinopathy with blindness, peripheral vascular disease (s/p bilat transmetatarsal amputation), poorly controlled hypertension due to noncompliance with medications, chronic respiratory failure on supplemental oxygen, HFrEF, mood disorder, chronic pain with opiate seeking behavior admtited for acute dyspnea r/t volume overload in setting of missed HD 1..ESRD on HD -follow labs, on hemodialysis Fridays, being followed by Nephro 2.Hypertension -stable blood pressure, continue all home medications 3.Chronic pain disorder -on IV Dilaudid/Oxy, will wean IV narcotics 4.Chronic bilateral diabetic foot ulcer -status post debridement of left leg wounds continue pain medication and daily dressing as per surgery recommendation with silver alginate dressing. Wean IV narcotics. 5.Wic-wpjoorx-rplngbzug type 2 diabetes -lispro correctional scale, stable blood sugar 6.HFrEF with chronic hypoxic respiratory failure - stable, continue torsemide 40 b.i.d. 7.CAD/Cardiomyopathy -stable and well compensated 8. Acute hypokalemia likely due to diuretics will replete and follow labs 9. As per patient she is no longer taking Keppra, no history of seizure disorder, EEG 06/16/2023 showed mild abnormality suggestive of tendency for seizure disorder. will dc keppra. Heparin Full code Patient requires ongoing hospitalization for stabilization of volume status , and debridement left foot wounds in OR, treatment can not be provided in less acute setting. Quality Stroke Does the patient have a stroke diagnosis?: No VTE Prior VTE?: No VTE Risk Level:: Medical - moderate - high VTE Device Contraindication: Treatment Not Indicated VTE Drug Contraindication: N/A - Med Ordered
[2023-10-13 16:00] VITALS: BP 114/59; PULSE 79; RESP 18; TEMP 37; O2SAT 98
[2023-10-13 16:08] LABS: Glucose, Whole Blood 164 mg/dL (60-115)
[2023-10-13 20:05] VITALS: BP 114/52; PULSE 82; RESP 20; TEMP 36.1; O2SAT 96
[2023-10-13 20:13] LABS: Glucose, Whole Blood 246 mg/dL (60-115)
[2023-10-13] MEDS: diphenhydrAMINE HCl 12.5 MG/5 ML LIQUID 25 MG PO (20:27)
[2023-10-13] MEDS: Melatonin 3 MG TABLET 6 MG PO (20:28)
--- NOTE | 2023-10-13 21:44 | HO.POSTANES ---
Post Anesthesia Evaluation Post Anesthesia Evaluation Date of Service: 10/12/23 Vital Signs: Vital Signs Temp Pulse Resp BP Pulse Ox O2 Del Method 10/13/23 20:05 97 F 82 20 114/52 L 96 Room Air 10/13/23 16:00 98.6 F 79 18 114/59 L 98 Room Air Anesthesia: General LMA Mental Status: Awake Pain Control: Satisfactory Nausea/Vomiting: None Hydration: Adequate Anesthesia-Related Issues: No Anes. Related Issues
[2023-10-14] MEDS: HYDROmorphone HCl 0.5 MG/0.5 ML SYRINGE IVPUSH ×6 (00:26→20:27)
[2023-10-14 08:00] VITALS: BP 109/57; PULSE 77; RESP 18; TEMP 36.6; O2SAT 99
[2023-10-14 08:00] LABS: Glucose, Whole Blood 151 mg/dL (60-115)
[2023-10-14] MEDS: Torsemide 20 MG TABLET 40 MG PO (08:15)
[2023-10-14] MEDS: NIFEdipine ER 60 MG TAB.ER.24 PO (08:16)
[2023-10-14] MEDS: hydrALAZINE HCl 50 MG TABLET PO (08:17)
[2023-10-14] MEDS: carvediloL 12.5 MG TABLET PO (08:17)
[2023-10-14] MEDS: Isosorbide Mononitrate 30 MG TAB.ER.24H PO (08:17)
[2023-10-14] MEDS: 0.9 % Sodium Chloride Flush 3 ML SYRINGE IVFLUSH (08:18)
--- NOTE | 2023-10-14 10:07 | HO.PM.IMPN ---
Subjective Subjective Date of Service: 10/14/23 Interval History: Being followed for fluid overload due to missed hemodialysis and left foot wounds. Complaining of left foot pain, taking medications, tolerating diet, no acute events overnight. Review of Systems All other system are reviewed and negative. Physical Exam Vital Signs: Vital Signs: Last Vital Signs Temp 97.8 F 10/14/23 08:00 Pulse 77 10/14/23 08:00 Resp 18 10/14/23 08:00 BP 109/57 L 10/14/23 08:00 Pulse Ox 99 10/14/23 08:00 O2 Del Method Room Air 10/14/23 08:00 O2 Flow Rate 2 10/12/23 14:07 BMI result Body Mass Index 32.5 Const: Other: Gen: Awake alert in no acute distress HEENT: blind Neck: supple, no JVD Lungs: clear to auscultation bilaterally Heart: regular rate and rhythm, no murmurs Abd: soft, non-tender, non-distended Ext: s/p R TMA, dressing in place both feet . Neuro: alert and oriented x3, no focal findings Psych: Appropriate affect Objective Data Active Medications Acetaminophen (Acetaminophen 325 Mg Tablet) 650 mg PO Q6H PRN PRN Reason: Pain, Mild (Pain Scale 1-3), fever or headache Calcium Carbonate (Calcium Carbonate 750 Mg Tab.Chew) 750 mg PO Q4H PRN PRN Reason: Heartburn Calcium Carbonate (Calcium Carbonate 750 Mg Tab.Chew) 300 mg PO TIDWM [facility] Last Admin: 10/14/23 08:28 Dose: Not Given Documented By: TEDDY Non-Admin Reason: Patient Refused Carvedilol (Carvedilol 12.5 Mg Tablet) 12.5 mg PO BID [facility]; Protocol Last Admin: 10/14/23 08:17 Dose: 12.5 mg Documented By: TEDDY Diphenhydramine HCl (Diphenhydramine Hcl 25 Mg Capsule) 25 mg PO Q6H PRN PRN Reason: Itching Diphenhydramine HCl (Diphenhydramine Hcl 12.5 Mg/5 Ml Liquid) 25 mg PO BEDTIME [facility] Last Admin: 10/13/23 20:27 Dose: 25 mg Documented By: RUSSELL Glucose (Glucose Gel 15 Gm Gel..Gram.) 15 gm PO Q15M PRN; Protocol PRN Reason: per Hypoglycemia Standing Ord. Heparin Sodium (Porcine) (Heparin Sodium,Porcine 5,000 Unit/Ml Vial) 5,000 unit SUBCUT Q12H [facility] Last Admin: 10/14/23 08:28 Dose: Not Given Documented By: TEDDY Non-Admin Reason: Patient Refused Hydralazine HCl (Hydralazine Hcl 20 Mg/Ml Vial) 10 mg IVPUSH Q6H PRN; Protocol PRN Reason: SBP > 180 Last Admin: 10/10/23 03:20 Dose: 10 mg Documented By: ETHEL Hydralazine HCl (Hydralazine Hcl 50 Mg Tablet) 50 mg PO TID [facility]; Protocol Last Admin: 10/14/23 08:17 Dose: 50 mg Documented By: TEDDY Hydromorphone HCl (Hydromorphone Hcl 0.5 Mg/0.5 Ml Syringe) 0.5 mg IVPUSH Q4H PRN; Protocol PRN Reason: Pain, Severe (Pain Scale 7-10) Last Admin: 10/14/23 08:19 Dose: 0.5 mg Documented By: TEDDY Dextrose (D10) 250 mls @ 750 mls/hr IV Q15M PRN; Protocol PRN Reason: per Hypoglycemia Standing Ord. Insulin Human Lispro (Insulin Lispro 100 Unit/Ml 3 Ml Vial) 0 unit SUBCUT QIDACHS [facility]; Protocol Last Admin: 10/14/23 08:27 Dose: Not Given Documented By: TEDDY Non-Admin Reason: Patient Refused Isosorbide Mononitrate (Isosorbide Mononitrate 30 Mg Tab.Er.24h) 30 mg PO DAILY [facility]; Protocol Last Admin: 10/14/23 08:17 Dose: 30 mg Documented By: TEDDY Magnesium Hydroxide (Milk Of Magnesia 30 Ml Oral.Susp) 30 ml PO DAILY PRN PRN Reason: Constipation Melatonin (Melatonin 3 Mg Tablet) 6 mg PO BEDTIME PRN PRN Reason: Insomnia Last Admin: 10/13/23 20:28 Dose: 6 mg Documented By: RUSSELL Nifedipine (Nifedipine Er 60 Mg Tab.Er.24) 60 mg PO DAILY [facility]; Protocol Last Admin: 10/14/23 08:16 Dose: 60 mg Documented By: TEDDY Ondansetron HCl (Ondansetron Odt 4 Mg Tab.Rapdis) 4 mg TRANSLINGU Q8H PRN PRN Reason: Nausea and Vomiting Last Admin: 10/08/23 21:47 Dose: 4 mg Documented By: ETHEL Oxycodone HCl (Oxycodone Hcl Immed Release 5 Mg Tablet) 5 mg PO Q4H PRN PRN Reason: Pain, Moderate(Pain Scale 4-6) Sodium Chloride (0.9 % Sodium Chloride Flush 3 Ml Syringe) 3 ml IVFLUSH QSHIFT [facility] Last Admin: 10/14/23 08:18 Dose: 3 ml Documented By: TEDDY Torsemide (Torsemide 20 Mg Tablet) 40 mg PO BID [facility]; Protocol Last Admin: 10/14/23 08:15 Dose: 40 mg Documented By: TEDDY Labs 10/12/23 08:31 10/12/23 08:31 Labs: Laboratory Results - last 24 hr 10/13/23 10/13/23 10/13/23 11:03 15:59 20:07 POC Glucose 162 H 164 H 246 H 10/14/23 07:56 POC Glucose 151 H Assessment and Plan (1) Chronic kidney disease: Status: Acute Plan 33 years old woman with past medical history significant for ESRD on HD, multiple hospitalizations due to noncompliance with hemodialysis, diabetic retinopathy with blindness, peripheral vascular disease (s/p bilat transmetatarsal amputation), poorly controlled hypertension due to noncompliance with medications, chronic respiratory failure on supplemental oxygen, HFrEF, mood disorder, chronic pain with opiate seeking behavior admtited for acute dyspnea r/t volume overload in setting of missed HD 1..ESRD on HD -follow labs, on hemodialysis Fridays, being followed by Nephro. 2.Hypertension -stable blood pressure, continue all home medications 3.Chronic pain disorder -on IV Dilaudid/Oxy, will wean IV narcotics 4.Chronic bilateral diabetic foot ulcer -status post debridement of left leg wounds continue pain medication and daily dressing as per surgery recommendation with silver alginate dressing. Wean IV narcotics. 5.Jqy-zeyrbck-yusglxwxh type 2 diabetes -lispro correctional scale, stable blood sugar 6.HFrEF with chronic hypoxic respiratory failure - stable, continue torsemide 40 b.i.d. 7.CAD/Cardiomyopathy -stable and well compensated 8. Acute hypokalemia likely due to diuretics will replete and follow labs 9. As per patient she is no longer taking Keppra, no history of seizure disorder, EEG 06/16/2023 showed mild abnormality suggestive of tendency for seizure disorder. will dc keppra. Heparin Full code Patient requires ongoing hospitalization for stabilization of volume status , management of left foot wounds , and safe disposition. Quality Stroke Does the patient have a stroke diagnosis?: No VTE Prior VTE?: No VTE Risk Level:: Medical - moderate - high VTE Device Contraindication: Treatment Not Indicated VTE Drug Contraindication: N/A - Med Ordered
[2023-10-14 16:00] VITALS: BP 95/50; PULSE 76; RESP 18; TEMP 36.2; O2SAT 93
[2023-10-14 16:11] LABS: Glucose, Whole Blood 152 mg/dL (60-115)
[2023-10-14 16:21] VITALS: BP 95/50
[2023-10-14 17:39] VITALS: BP 102/75
[2023-10-14 19:58] VITALS: BP 104/56; PULSE 72; RESP 20; TEMP 36.1; O2SAT 96
[2023-10-14 20:07] LABS: Glucose, Whole Blood 204 mg/dL (60-115)
[2023-10-14] MEDS: diphenhydrAMINE HCl 12.5 MG/5 ML LIQUID 25 MG PO (20:25)
[2023-10-14] MEDS: Melatonin 3 MG TABLET 6 MG PO (20:26)
[2023-10-14] MEDS: Ondansetron ODT 4 MG TAB.RAPDIS TRANSLINGU (20:26)
[2023-10-15] MEDS: HYDROmorphone HCl 0.5 MG/0.5 ML SYRINGE IVPUSH ×2 (00:27→04:26)
[2023-10-15] MEDS: 0.9 % Sodium Chloride Flush 3 ML SYRINGE IVFLUSH (00:28)
[2023-10-15 03:37] VITALS: BP 105/58; PULSE 71; RESP 18; TEMP 36.1; O2SAT 99
--- NOTE | 2023-10-15 06:24 | PC.NURSE ---
Pt is due for dressing changes to bilateral feet today, pt refused dressing change from this RN stating it's too early. Will pass along to daytime nurse.
--- NOTE | 2023-10-15 07:01 | PM.PNGS ---
Subjective Subjective Date of Service: 10/15/23 <[facility] Last Filed: 10/15/23 07:21> 10/16/23 <Sindi Chandra PA-C - Last Filed: 10/16/23 12:47> Interval history: Patient reports she is uncomfortable this morning. No acute events overnight. She reports pain in the feet. Continues to receive IV hydromorphone 0.5mg every 4 hours, reports relief with administration. Bandages intact on both feet, nursing plans to change dressings today. Scheduled for dialysis today. <[facility] Filed: 10/15/23 07:21> Physical Exam Vital Signs: Vital Signs: Last Vital Signs Temp 96.9 F 10/15/23 03:37 Pulse 71 10/15/23 03:37 Resp 18 10/15/23 03:37 BP 105/58 L 10/15/23 03:37 Pulse Ox 99 10/15/23 03:37 O2 Del Method Nasal Cannula 10/15/23 03:37 O2 Flow Rate 3 10/15/23 03:37 BMI result Body Mass Index 32.5 <[facility] Filed: 10/15/23 07:21> Const: General: cooperative <[facility] Filed: 10/15/23 07:21> Orientation/consciousness: patient oriented x3 <[facility] Filed: 10/15/23 07:21> Chest: Chest palpation & inspection: normal inspection of the chest <[facility] Filed: 10/15/23 07:21> Resp: Effort & Inspection: normal respiratory effort and able to speak in complete sentences <[facility] Filed: 10/15/23 07:21> Cardio: Rate: regular rate <[facility] Filed: 10/15/23 07:21> Rhythm: regular rhythm <[facility] Filed: 10/15/23 07:21> Neuro: General: patient oriented x3 <[facility] Filed: 10/15/23 07:21> Extrem: Other: metatarsal amputation bilaterally, bandages around feet bilaterally, scant around of blood on bandage over left heel, no lower extremity edema or swelling. <[facility] Filed: 10/15/23 07:21> Objective Data Active Medications Acetaminophen (Acetaminophen 325 Mg Tablet) 650 mg PO Q6H PRN PRN Reason: Pain, Mild (Pain Scale 1-3), fever or headache Calcium Carbonate (Calcium Carbonate 750 Mg Tab.Chew) 750 mg PO Q4H PRN PRN Reason: Heartburn Calcium Carbonate (Calcium Carbonate 750 Mg Tab.Chew) 300 mg PO TIDWM [facility] Last Admin: 10/14/23 17:16 Dose: Not Given Documented By: KERRIE Non-Admin Reason: Patient Refused Carvedilol (Carvedilol 12.5 Mg Tablet) 12.5 mg PO BID [facility]; Protocol Last Admin: 10/14/23 20:20 Dose: Not Given Documented By: ISHAAN Non-Admin Reason: Patient Refused Diphenhydramine HCl (Diphenhydramine Hcl 25 Mg Capsule) 25 mg PO Q6H PRN PRN Reason: Itching Diphenhydramine HCl (Diphenhydramine Hcl 12.5 Mg/5 Ml Liquid) 25 mg PO BEDTIME [facility] Last Admin: 10/14/23 20:25 Dose: 25 mg Documented By: ISHAAN Glucose (Glucose Gel 15 Gm Gel..Gram.) 15 gm PO Q15M PRN; Protocol PRN Reason: per Hypoglycemia Standing Ord. Heparin Sodium (Porcine) (Heparin Sodium,Porcine 5,000 Unit/Ml Vial) 5,000 unit SUBCUT Q12H [facility] Last Admin: 10/14/23 19:02 Dose: Not Given Documented By: ISHAAN Non-Admin Reason: Patient Refused Hydralazine HCl (Hydralazine Hcl 20 Mg/Ml Vial) 10 mg IVPUSH Q6H PRN; Protocol PRN Reason: SBP > 180 Last Admin: 10/10/23 03:20 Dose: 10 mg Documented By: ETHEL Hydralazine HCl (Hydralazine Hcl 50 Mg Tablet) 50 mg PO TID [facility]; Protocol Last Admin: 10/14/23 20:21 Dose: Not Given Documented By: ISHAAN Non-Admin Reason: Patient Refused Hydromorphone HCl (Hydromorphone Hcl 0.5 Mg/0.5 Ml Syringe) 0.5 mg IVPUSH Q4H PRN; Protocol PRN Reason: Pain, Severe (Pain Scale 7-10) Last Admin: 10/15/23 04:26 Dose: 0.5 mg Documented By: ISHAAN Dextrose (D10) 250 mls @ 750 mls/hr IV Q15M PRN; Protocol PRN Reason: per Hypoglycemia Standing Ord. Insulin Human Lispro (Insulin Lispro 100 Unit/Ml 3 Ml Vial) 0 unit SUBCUT QIDACHS [facility]; Protocol Last Admin: 10/14/23 20:21 Dose: Not Given Documented By: ISHAAN Non-Admin Reason: Patient Refused Isosorbide Mononitrate (Isosorbide Mononitrate 30 Mg Tab.Er.24h) 30 mg PO DAILY [facility]; Protocol Last Admin: 10/14/23 08:17 Dose: 30 mg Documented By: TEDDY Magnesium Hydroxide (Milk Of Magnesia 30 Ml Oral.Susp) 30 ml PO DAILY PRN PRN Reason: Constipation Melatonin (Melatonin 3 Mg Tablet) 6 mg PO BEDTIME PRN PRN Reason: Insomnia Last Admin: 10/14/23 20:26 Dose: 6 mg Documented By: ISHAAN Nifedipine (Nifedipine Er 60 Mg Tab.Er.24) 60 mg PO DAILY [facility]; Protocol Last Admin: 10/14/23 08:16 Dose: 60 mg Documented By: TEDDY Ondansetron HCl (Ondansetron Odt 4 Mg Tab.Rapdis) 4 mg TRANSLINGU Q8H PRN PRN Reason: Nausea and Vomiting Last Admin: 10/14/23 20:26 Dose: 4 mg Documented By: ISHAAN Oxycodone HCl (Oxycodone Hcl Immed Release 5 Mg Tablet) 5 mg PO Q4H PRN PRN Reason: Pain, Moderate(Pain Scale 4-6) Sodium Chloride (0.9 % Sodium Chloride Flush 3 Ml [facility]) [facility] Last Admin: 10/15/23 00:28 Dose: 3 ml Documented By: ISHAAN Torsemide (Torsemide 20 Mg Tablet) 40 mg PO BID [facility]; Protocol Last Admin: 10/14/23 20:21 Dose: Not Given Documented By: ISHAAN Non-Admin Reason: Patient Refused <[facility] - Last Filed: 10/15/23 07:21> Labs CBC & Chem 7: 10/12/23 08:31 10/12/23 08:31 <[facility] Last Filed: 10/15/23 07:21> Labs: Laboratory Results - last 24 hr 10/14/23 10/14/23 10/14/23 07:56 16:00 20:01 POC Glucose 151 H 152 H 204 H <[facility] Last Filed: 10/15/23 07:21> Procedures Date of Service Date of Service: 10/15/23 <[facility] Last Filed: 10/15/23 07:21> 10/16/23 <Sindi Chandra PA-C - Last Filed: 10/16/23 12:47> Progress Note: A&P Assessment and plan (1) Diabetic foot infection: Status: Acute <[facility] Filed: 10/15/23 07:21> Assessment and Plan: Patient is s/p wound debridement on 10/11. Vitals and labs stable. Nursing planning to do dressing change later today, patient refused overnight. Recommend tapering IV pain medication Scheduled for dialysis today <[facility] Filed: 10/15/23 07:21> Time Spent With Patient Time: Total time managing care of this patient today ____ minutes. <[facility] Filed: 10/15/23 07:21> Quality Stroke Does the patient have a stroke diagnosis?: No <[facility] Filed: 10/15/23 07:21> VTE Prior VTE?: No <[facility] Filed: 10/15/23 07:21> VTE Risk Level:: Medical - moderate - high <[facility] Filed: 10/15/23 07:21> VTE Device Contraindication: Treatment Not Indicated <[facility] Filed: 10/15/23 07:21> VTE Drug Contraindication: N/A - Med Ordered <[facility] Filed: 10/15/23 07:21>
[2023-10-15 07:25] LABS: Glucose, Whole Blood 106 mg/dL (60-115)
[2023-10-15 07:43] VITALS: BP 109/56; PULSE 70; RESP 16; TEMP 36.1; O2SAT 96
--- NOTE | 2023-10-15 09:15 | PC.NURSE ---
Pt reported pain, refused to rate, states it's really bad. She declined to this RN and to Dr. Arora to take the oxycodone. She declines to offer a solution that would be acceptable to her. She is refusing dialysis this morning. She was educated re; worsening condition if refusing dialysis and on ability to titrate oxycodone to try to find a dose that offers pain relief. Pt continues to refuse ALL meds and is asking to leave. Dr. Arora back to the bedside for conversation to no avail. She continued to refuse ALL meds this am. Pt state she is willing to have dressing changed.
--- NOTE | 2023-10-15 11:09 | MHC.CM.PN ---
Per MD rounds patient medically cleared for dc w/ plan to dc after HD. Patient refusing HD at this time, despite multiple conversations w/ MD and CM. Recommended VNA for wound care, patient prefers sister to perform dressing changes, does not want VNA. MD aware. RN will provide teaching/supplies to sister prior to dc. Sister to transport home at noon. RN aware.
--- NOTE | 2023-10-15 14:26 | PM.DS ---
DS: Providers Provider Date of Service: 10/15/23 Date of admission: 10/08/23 19:40 Primary care physician: Portia Sandhu Consults: 10/08/23 19:40 Consult to Nephrology Routine Consulting Provider: [facility] Reason for consultation: esrd hd 10/08/23 19:54 Consult to Wound Care Routine Reason for consultation: diaebtic foot ulcers 10/10/23 07:12 Consult to General Surgery Routine Consulting Provider: [facility] Reason for consultation: ? need for wound debridement Has provider been notified: No DS: Diagnosis Discharge Diagnosis (1) Chronic kidney disease: Status: Acute DS: Summary Hospital Course Hospital Course: History of presenting illness: Date of Service: 10/08/23 Attending physician on admission: Alejandra Sewell Chief Complaint: dyspnea 33 years old woman with past medical history significant for ESRD on HD, multiple hospitalizations due to noncompliance with hemodialysis, diabetic retinopathy with blindness, peripheral vascular disease (s/p bilat transmetatarsal amputation), poorly controlled hypertension due to noncompliance with medications, chronic respiratory failure on supplemental oxygen, HFrEF, mood disorder, chronic pain with opiate seeking behavior presented to the ED earlier today for evaluation of acute dyspnea. Reportedly last HD session and was advised at that time to come to the hospital due to volume overload but declined and was instead advised to go to HD on sunday but did not. Reports acute worsening of dyspnea earlier today and supplemental O2 was not helping. She was seen earlier by Dr. cruz in follow up for diabetic foot infection s/p TMA and was advised that incision healing appropriately though further amputation may be needed due to osteomyelitis and non healing ulcers. No evidence of acute infection. Reportedly meds are all administered by her NURSING ADMIN and has not missed any doses. Since arrival has been hypertensive to 192/112 given iv hydralazine. Hematology studies baseline. Creatinine 8.20, BUN 90, CO2 16. Troponin 22.5. Chest x-ray unremarkable. EKG shows NSR, rate 91 with right bundle-branch block and nonspecific T-wave abnormalities, but no evidence of acute ischemic changes. In addition to IV hydralazine has also been given 1 mg IV Dilaudid, IV Benadryl, and 50 mg p.o. hydralazine. Has been vomiting up PO medications but was tolerating food in the ED. Hospital course: 33 years old woman with past medical history significant for ESRD on HD, multiple hospitalizations due to noncompliance with hemodialysis, diabetic retinopathy with blindness, peripheral vascular disease (s/p bilat transmetatarsal amputation), poorly controlled hypertension due to noncompliance with medications, chronic respiratory failure on supplemental oxygen, HFrEF, mood disorder, chronic pain with opiate seeking behavior admtited for acute dyspnea r/t volume overload in setting of missed HD, patient admitted to medical floor underwent hemodialysis with good relief in symptoms hemodialysis was continued as per Nephrology, patient took her blood pressure show medications and noted to have soft blood pressures therefore will discontinue Isordil recommend compliance with hemodialysis and all home medications. She was noted to have acute hypokalemia likely due to diuretics repleted, recommend to follow labs with Nephrology. In regard to chronic bilateral diabetic foot ulcers patient underwent debridement of left leg wounds in OR by Dr. Cruz postprocedure patient required daily dressing with silver alginate and was treated with IV Dilaudid and oxycodone, patient is now being discharged home on oxycodone 5 mg q.4 hours as needed , she is recommended outpatient follow-up with Dr. Cruz, patient's sister will do daily dressings. In regard to Rnt-[id number] type 2 diabetes she is recommended to continue home medications and follow diabetic diet. HFrEF with chronic hypoxic respiratory failure, she was continued on torsemide and recommend to continue home O2, CAD/Cardiomyopathy -stable and well compensated As per patient she is no longer taking Keppra, no history of seizure disorder, EEG 06/16/2023 showed mild abnormality suggestive of tendency for seizure disorder. Keppra discontinued since patient declined medication. Time Attestation Discharge Coordination Time (in mins): 40 Quality: Safe Use of Opioids Does Pt have an Active Cancer Diagnosis on the Problem List?: No Quality: Stroke Does the patient have a stroke diagnosis?: No Physical Exam Vital Signs: Vital Signs: Last Vital Signs Temp 97.0 F 10/15/23 07:43 Pulse 70 10/15/23 07:43 Resp 16 10/15/23 07:43 BP 109/56 L 10/15/23 07:43 Pulse Ox 96 10/15/23 07:43 O2 Del Method Nasal Cannula 10/15/23 07:43 O2 Flow Rate 2 10/15/23 07:43 BMI result Body Mass Index 32.5 Const: Other: Gen: Awake alert in no acute distress HEENT: blind Neck: supple, no JVD Lungs: clear to auscultation bilaterally Heart: regular rate and rhythm, no murmurs Abd: soft, non-tender, non-distended Ext: s/p R TMA, dressing in place both feet , no drainage noted. Neuro: alert and oriented x3, no focal findings Psych: Appropriate affect DS: Data Data Completed and Pending Completed studies during hospitalization [Text1]: Pending at discharge 10/12/23 13:36 Surgical [PTH] Routine Procedures Detachment at Left 2nd Toe, Complete, Open Approach (09/08/23) Detachment at Left 3rd Toe, Complete, Open Approach (09/08/23) Detachment at Left 4th Toe, Complete, Open Approach (09/08/23) Detachment at Right Foot, Partial 1st Ray, Open Approach (03/01/20) Detachment at Right Foot, Partial 2nd Ray, Open Approach (03/01/20) Detachment at Right Foot, Partial 3rd Ray, Open Approach (03/01/20) Detachment at Right Foot, Partial 4th Ray, Open Approach (03/01/20) Detachment at Right Foot, Partial 5th Ray, Open Approach (03/01/20) Drainage of Right Pleural Cavity, Percutaneous Approach (01/14/21) Excision of Left Foot Skin, External Approach (09/08/23) Excision of Right Foot Skin, External Approach (08/27/23) Excision of Stomach, Pylorus, Via Natural or Artificial Opening Endoscopic, Diagnostic (08/27/22) Fluoroscopy of Superior Vena Cava, Guidance (08/14/22) Insertion of Infusion Device into Right Atrium, Percutaneous Approach (08/14/22) Insertion of Infusion Device into Superior Vena Cava, Percutaneous Approach (01/14/21) Insertion of Infusion Device into Upper Vein, Percutaneous Approach (08/27/23) Insertion of Tunneled Vascular Access Device into Chest Subcutaneous Tissue and Fascia, Percutaneous Approach (08/14/22) Performance of Urinary Filtration, Intermittent, Less than 6 Hours Per Day (09/08/23) Removal of Infusion Device from Great Vessel, External Approach (01/14/21) Transfusion of Nonautologous Red Blood Cells into Peripheral Vein, Percutaneous Approach (04/22/22) Labs on day of discharge: Laboratory Results - last 24 hr 0810/14/23 10/15/23 16:00 20:01 07:21 POC Glucose 152 H 204 H 106 Discharge Plan Discharge Anticipated Discharge Date/Time: 10/15/23 12:30 Patient Disposition: Home, Self-Care Discharge Diagnosis: Chronic bilateral diabetic foot ulcer Referrals: Portia Sandhu [Primary Care Provider] - 1 Week Discharge Medications: New oxycodone 5 mg Tablet 5 mg PO Q4H PRN (Reason: Pain, Moderate(Pain Scale 4-6)) Qty: 20 0RF Rx Instructions: Partial Fill upon patient request. Continued (DME) off loading boot Kit See Rx Instructions .Route Qty: 1 0RF Rx Instructions: As directed carvedilol 12.5 mg tablet 12.5 mg PO BID torsemide 20 mg tablet 40 mg PO BID Calcium Antacid 300 mg (750 mg) tablet,chewable 1 tab PO TIDWM nifedipine 60 mg tablet extended release 24hr 60 mg PO DAILY diphenhydramine HCl 12.5 mg/5 mL Elixir 25 mg PO BEDTIME hydralazine 50 mg Tablet 50 mg PO TID Qty: 90 0RF Protocol: Hold for SBP< HOLD for SBP < : 90 Discontinued isosorbide mononitrate 30 mg tablet extended release 24 hr 30 mg PO DAILY oxycodone 5 mg tablet 5 mg PO Q8H levetiracetam 1,000 mg tablet 1,000 mg PO DAILY Discharge Orders: Discharge Order (Routine); Ordered 10/15/23 Ordered By: Scarlet Arora Diet: Diabetic diet Activity on Discharge: As tolerated Stand Alone Forms: Patient Portal Discharge page Print Language: Slovak Care Plan Goals: Continue daily dressing with silver alginate, outpatient follow-up with Dr. Cruz in 2 weeks Discontinue isosorbide As per patient not taking Keppra at home Take oxycodone 5 mg q.4 to 6 hours as needed for [id number] pain Health Concerns: Take all home medications and continue hemodialysis as before Plan of Treatment: outpatient follow-up with primary care physician call for appointment, outpatient follow-up with General surgery Dr. Cruz call for appointment in 2 weeks, continue hemodialysis Assessment: As above Discharge Date/Time: 10/15/23 12:58
== END 2023-10-15 12:58 | disposition home or self-care (01) | DRG 622 ==
LOC: HO.ED 19:12 → HO.EDOVER 19:57 → HO.S3 20:10
PROVIDERS: Hospitalist; Student in an Organized Health Care Education/Training Program; Surgery; Admitting Provider Physician Assistant; Emergency Provider Emergency Medicine; Visit Provider Hospitalist
PROC: 0JBR0ZZ Excision of Left Foot Subcutaneous Tissue and Fascia, Open Approach (ICD-10-PCS; principal; 2023-10-12 12:30)
DX: E87.70 Fluid overload, unspecified (principal); N18.6 End stage renal disease; I13.2 Hypertensive heart and chronic kidney disease with heart failure and with stage 5 chronic kidney disease, or end stage renal disease; J96.11 Chronic respiratory failure with hypoxia; F11.20 Opioid dependence, uncomplicated; I50.32 Chronic diastolic (congestive) heart failure; I42.9 Cardiomyopathy, unspecified; L97.429 Non-pressure chronic ulcer of left heel and midfoot with unspecified severity; E11.319 Type 2 diabetes mellitus with unspecified diabetic retinopathy without macular edema; I25.10 Atherosclerotic heart disease of native coronary artery without angina pectoris; E11.21 Type 2 diabetes mellitus with diabetic nephropathy; E11.42 Type 2 diabetes mellitus with diabetic polyneuropathy; E11.22 Type 2 diabetes mellitus with diabetic chronic kidney disease; G89.29 Other chronic pain; Z99.2 Dependence on renal dialysis; Z91.158 Patient's noncompliance with renal dialysis for other reason; Z91.148 Patient's other noncompliance with medication regimen for other reason; Z99.81 Dependence on supplemental oxygen; I16.0 Hypertensive urgency; E87.6 Hypokalemia; Z79.899 Other long term (current) drug therapy
CPT/HCPCS: 36415; 71045; 80048; 80053; 80076; 80307; 82947; 83735; 84484; 84702; 85025; 88304; 90999; 93005; 99285; J0360; J1170; J1644; J2250; J2704; J2795; J3010

== ENCOUNTER → 2023-10-08 15:28 | Outpatient (BNV) | payer OTHER, SELFPAY | PROVIDERS: Admitting Provider Physician Assistant; Emergency Provider Emergency Medicine; Visit Provider Internal Medicine | DX: R94.31 Abnormal electrocardiogram [ECG] [EKG] (principal) | CPT/HCPCS: 93010 ==

== ENCOUNTER → 2023-10-08 19:40 | Outpatient (BNV) | payer OTHER, SELFPAY | PROVIDERS: Admitting Provider Physician Assistant; Emergency Provider Emergency Medicine; Visit Provider Physician Assistant | DX: N18.6 End stage renal disease (principal); Z99.2 Dependence on renal dialysis | CPT/HCPCS: 99223; 99232; 99233; 99239 ==

== ENCOUNTER → 2023-10-08 19:40 | Outpatient (BNV) | payer OTHER, SELFPAY | PROVIDERS: Admitting Provider Physician Assistant; Emergency Provider Emergency Medicine; Visit Provider Surgery | DX: E11.621 Type 2 diabetes mellitus with foot ulcer (principal); L97.529 Non-pressure chronic ulcer of other part of left foot with unspecified severity | CPT/HCPCS: 11042; 99024; 99222; 99232 ==

== ENCOUNTER 2023-10-17 17:49 | Inpatient (IN) | payer OTHER, SELFPAY ==
--- NOTE | ~2023-10-17 | XR_ITS ---
EXAMINATION: Right foot x-ray series. Left foot series. CLINICAL INFORMATION: Chronic ulcers. Question osteomyelitis. COMPARISON: Multiple prior imaging examinations including left foot x-ray August 2023 and right foot x-ray July 2023. MRI of the left foot August 2023. TECHNIQUE: 3 views of each foot FINDINGS: Right foot: Postoperative changes secondary to a transmetatarsal interpretation as seen previously. The bone and joints are otherwise unremarkable. No soft tissue gas or localized defect identified.. Arterial calcifications noted. Left foot: There has been interval surgery since the August x-ray with transmetatarsal amputations of the second third and fourth digits. Overlying soft tissues are unremarkable without identified ulcer Chronic periosteal reaction noted along the second third and fourth metatarsals unchanged. No new erosive change. Marked deformity of the tarsal joints and tarsometatarsal joints compatible with neuropathic arthropathy unchanged. XR/XR foot RT min 3V IMPRESSION: Right foot: Stable postoperative changes. No evidence for acute osteomyelitis radiographically Left foot: Postoperative changes and chronic changes compatible with neuropathic arthropathy. No radiographic findings to suggest acute osteomyelitis Electronically signed by: Chaparro Macdonald MD 10/17/2023 08:33 PM EDT
--- NOTE | ~2023-10-17 | XR_ITS ---
EXAMINATION: Right foot x-ray series. Left foot series. CLINICAL INFORMATION: Chronic ulcers. Question osteomyelitis. COMPARISON: Multiple prior imaging examinations including left foot x-ray August 2023 and right foot x-ray July 2023. MRI of the left foot August 2023. TECHNIQUE: 3 views of each foot FINDINGS: Right foot: Postoperative changes secondary to a transmetatarsal interpretation as seen previously. The bone and joints are otherwise unremarkable. No soft tissue gas or localized defect identified.. Arterial calcifications noted. Left foot: There has been interval surgery since the August x-ray with transmetatarsal amputations of the second third and fourth digits. Overlying soft tissues are unremarkable without identified ulcer Chronic periosteal reaction noted along the second third and fourth metatarsals unchanged. No new erosive change. Marked deformity of the tarsal joints and tarsometatarsal joints compatible with neuropathic arthropathy unchanged. XR/XR foot LT min 3V IMPRESSION: Right foot: Stable postoperative changes. No evidence for acute osteomyelitis radiographically Left foot: Postoperative changes and chronic changes compatible with neuropathic arthropathy. No radiographic findings to suggest acute osteomyelitis Electronically signed by: Chaparro Macdonald MD 10/17/2023 08:33 PM EDT
[2023-10-17 17:59] VITALS: BP 168/100; PULSE 66; O2SAT 92; BMI 29.6
[2023-10-17 18:05] VITALS: BP 159/90; PULSE 94; RESP 16; TEMP 36.4; O2SAT 94
[2023-10-17 18:34] LABS: MANUAL DIFF FLAG NO
[2023-10-17 18:38] LABS: Basophils Percent Auto 0.3 % (0-2); Eosinophils Absolute Auto 0.1 X10*3/uL (0.0-0.4); Eosinophils Percent Auto 2.4 % (0-4); Hematocrit 27.8 % (37.0-47.0); Hemoglobin 8.9 g/dl (12.0-16.0); Imm Gran Abs Auto 0.03 X10*3/uL (0.00-0.03); Imm Gran Pct Auto 0.5 % (0.0-0.4); Lymphocytes Absolute Auto 0.4 X10*3/uL (1.2-4.9); Lymphocytes Percent Auto 6.9 % (20-40); Mean Corpuscular Hemoglobin 29.9 pg (27.0-33.0); Mean Corpuscular Volume 93.3 fL (80.0-98.0); Mean Platelet Volume 11.7 fL (9.4-12.3); Monocytes Absolute Auto 0.5 X10*3/uL (0.1-1.2); Monocytes Percent Auto 9.1 % (2-11); Neutrophils Absolute Auto 4.8 x10*3/uL (2.0-8.3); Neutrophils Percent Auto 80.8 % (45-73); Platelet Count 171 X10*3/uL (160-400); Red Blood Count 2.98 X10*6/uL (4.20-5.50); White Blood Count 5.9 X10*3/uL (4.8-10.8)
[2023-10-17 18:46] LABS: Lactic Acid 1.1 mmol/L (0.5-2.0)
--- NOTE | 2023-10-17 19:10 | PC.NURSE ---
assumed care of pt at 1900 - report received from bernice BETH.
--- NOTE | 2023-10-17 19:16 | ED.GENADULT ---
HPI - General Adult General Chief complaint: Extremity Injury, Lower Stated complaint: FOOT PAIN, PER SPECIAL SERVICES COORDINATOR NECROTIC TISSUE ON L FOOT Time Seen by Provider: 10/17/23 19:05 Source: patient, EMS, RN notes reviewed and old records reviewed Mode of arrival: EMS Limitations: no limitations History of Present Illness ED Provider: SAMANTHA LUNA PA-C HPI narrative: 33-year-old female with past medical history significant for insulin dependent diabetes, diabetic neuropathy, chronic diabetic foot ulcers to bilateral feet, diabetic retinopathy with blindness, PVD s/p bilateral transmetatarsal amputations, poorly-controlled hypertension due to noncompliance with medication, ESRD on hemodialysis T/, HFrEF, mood disorder, chronic pain with opioid seeking behavior presents to the ED today via EMS from home for evaluation of increased pain to bilateral feet (L>R) starting today. Patient states that her sister was helping her shower today and noticed that the anterior aspect of her left foot looked black . She reports contacting Dr. Rajput's office and after speaking to the nurse, was advised to come to the ED for further evaluation. Admits to purulent drainage from one of the ulcer sites on her left foot. Patient recently had debridement of left foot on 10/10/[address] Rajput and was discharged vince on 10/15/23 with wound care follow up. She states that she has been trying to get into contact with the wound care clinic however has not been able to get an appointment with them. Her SPECIAL SERVICES COORDINATOR and sister have been changing her dressings. She reports history of chronic nonhealing wounds to b/l feet over the last 3 years with worsening pain today. Denies fever, chills, N/V, chest pain, sob. Related Data Home Medications ?Medication ?Instructions ?Recorded ?Confirmed carvedilol 12.5 mg tablet 12.5 mg PO BID 06/05/23 10/17/23 torsemide 20 mg tablet 40 mg PO BID 06/05/23 10/17/23 calcium carbonate (Calcium Antacid) 1 tab PO TIDWM 08/28/23 10/17/23 diphenhydramine HCl 12.5 mg/5 mL 25 mg PO BEDTIME 10/08/23 10/17/23 oral elixir nifedipine 60 mg tablet,extended 60 mg PO DAILY 10/08/23 10/17/23 release 24 hr Previous Rx's ?Medication ?Instructions ?Recorded off loading boot #1 ea 03/14/23 hydralazine 50 mg tablet 50 mg PO TID #90 tabs 09/17/23 oxycodone 5 mg tablet 5 mg PO Q4H PRN Pain, 10/15/23 Moderate(Pain Scale 4-6) #20 tabs Allergies Allergy/AdvReac Type Severity Reaction Status Date / Time morphine [MORPHINE] Allergy Intermediate Itching Verified 10/17/23 18:02 azithromycin [From Zithromax] Allergy Hives Verified 10/17/23 18:02 gabapentin Allergy Facial Verified 10/17/23 18:02 Swelling tramadol Allergy Facial Verified 10/17/23 18:02 Swelling vancomycin Allergy Anaphylaxis Verified 10/17/23 18:02 Review of Systems Review of Systems: Constitutional: No fever, chills, fatigue, night sweats, weight changes ENT/Mouth: No ear pain, hearing loss, nasal congestion, sinus pain, rhinorrhea, sore throat Eyes: No eye pain, swelling, redness, vision changes, discharge Cardio: No chest pain, palpitations, SOTELO, orthopnea, peripheral edema Pulm: No SOB, cough, sputum, wheezing, dyspnea, hemoptysis GI: No nausea, vomiting, hematemesis, abdominal pain, diarrhea, constipation, hematochezia, melena : No irregular bleeding, dysuria, frequency, urgency, hesitancy, hematuria, flank pain, urinary flow changes, urinary incontinence or retention MSK: No back pain, neck pain, joint pain, myalgias, +b/l foot pain Skin: No lesions, rashes, +chronic foot ulcers Neuro: No weakness, numbness, paresthesias, LOC, dizziness, headache Psych: No anxiety/panic, depression, SI/HI, AH/VH All other systems reviewed and are negative. [facility] Past Medical History Attestation statement: The following information was validated with the patient. Source: old records reviewed and nursing notes reviewed Medical History Plantar ulcer of left foot Major depressive disorder, single episode, severe ESRD (end stage renal disease) Non-compliance with renal dialysis Hypertensive urgency MDD (major depressive disorder), recurrent episode MDD (major depressive disorder) Renal failure Foot ulcer CKD (chronic kidney disease) Hypertension Diabetic foot Hyperkalemia Vomiting Renal failure Hypertension Migraine Chronic pain ESRD on dialysis Non-compliance with renal dialysis Hypertension End-stage renal disease (ESRD) Gastroparesis Diabetic foot ulcer associated with type 2 diabetes mellitus Hypertensive emergency Diabetes ESRD needing dialysis Cardiomyopathy HFrEF (heart failure with reduced ejection fraction) Metabolic acidosis delivery delivered Anemia in chronic kidney disease (CKD) Anemia CKD (chronic kidney disease) Headache, migraine Abnormal finding on echocardiogram Elevated troponin Chest pain Acute worsening of stage 3 chronic kidney disease Generalized edema Sepsis Cellulitis Pleural effusion CHF (congestive heart failure) (~06/07/22) Tachycardia Atypical chest pain Bone infection PAD (peripheral artery disease) Severe anemia Cellulitis and abscess of foot DM foot ulcer Osteomyelitis Asthma Depression with anxiety Diabetic retinopathy Type 2 diabetes mellitus with hyperglycemia, with long-term current use of insulin Blind right eye Diabetes Back pain Surgical History Tubal ligation status Previous section Hx laparoscopic cholecystectomy Hx of surgical procedure (~09/11/23) 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 Family History Family History Mother Coronary artery disease Myocardial infarction Stroke Diabetes mellitus Father Myocardial infarction Social History Social History Household Members: Family Household Members Other:: sister Housing: Apartment Do you presently have visiting nurse or other home services: No Unable to assess alcohol history related to: Unknown Alcohol intake: never 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 Patient Tobacco Use Status: Never used Tobacco e-Cigarette/Vaping Use: Never Used Second Hand Smoke Exposure: No Advance Directives Date on File: 09/04/23 service: No Current occupational status: unemployed and disabled Gender identity: Female Physical Exam ED Vital Signs: Vital Signs - 24 hr 10/17/23 20:15 10/17/23 20:23 Pulse Rate 84 87 Respiratory Rate 18 16 Blood Pressure 168/86 H Pulse Oximetry 95 Oxygen Delivery Method Oxymask Oxygen Flow Rate 8 BMI result Body Mass Index 29.6 Patient hypertensive to 159/90, vitals otherwise WNL. Afebrile. Const Other: In obvious discomfort, tearful General: cooperative Orientation/consciousness: patient oriented x3 Limitations: no limitations HENMT Head: Yes normal to inspection, Yes No palpable skull fracture present, Yes normocephalic and Yes atraumatic Neck Neck: Yes normal visual inspection Resp Effort & Inspection: normal respiratory effort and able to speak in complete sentences Auscultation: clear to auscultation bilaterally Cardio Rate: tachycardic Rhythm: regular rhythm GI Inspection: Yes normal to inspection Palpation (GI): Soft to palpation and nontender Neuro General: patient oriented x3 Extrem Other: + see photos of right and left lower extremities below + there chronic nonhealing wounds to bilateral feet. No obvious signs of infection or necrosis. Course Course Course Narrative: 2021 -- CBC showing chronic normocytic anemia with H&H 8.9/27.8. No leukocytosis. Chemistry showing hyponatremia at 132. Hyperkalemia to 6.8. MYNOR superimposed on CKD with BUN 88 and creatinine 9.38. Troponin elevated to 43.3 likely secondary to chronic kidney disease. No concern for ACS. > Treating hyperkalemia with 10 units insulin, nebulizer, and D50. Calcium gluconate ordered and patient placed on continuous cardiac monitoring. > spoke with atmospheric sciences professor Dr. Siddiqi who would like patient to be dialyzed and has arranged for HD with ETA 60-[address] Sewell aware. Patient to be admitted to medicine. Dr. Sewell to place admission orders. Medications Administered Generic Name Dose Route Start Last Admin Trade Name Freq PRN Reason Stop Dose Admin Carvedilol 12.5 mg 10/18/23 09:00 10/18/23 10:24 Carvedilol 12.5 Mg Tablet PO 12.5 mg BID VASILE Administration Protocol Diphenhydramine HCl 25 mg 10/18/23 15:47 10/18/23 16:00 Diphenhydramine Hcl 50 Mg/Ml Vial IVPUSH 25 mg Q6H PRN Administration Itching Heparin Sodium (Porcine) 5,000 unit 10/17/23 20:30 10/18/23 10:22 Heparin Sodium,Porcine 5,000 Unit/Ml Vial SUBCUT Not Given Q12H VASILE Hydralazine HCl 50 mg 10/18/23 09:00 10/18/23 15:40 Hydralazine Hcl 50 Mg Tablet PO 50 mg TID VASILE Administration Protocol Insulin Human Lispro 0 unit 10/18/23 07:30 10/18/23 16:30 Insulin Lispro 100 Unit/Ml 3 Ml Vial SUBCUT Not Given QIDACHS [facility] Protocol Labetalol HCl 10 mg 10/18/23 17:39 10/18/23 18:02 Labetalol Hcl 100 Mg/20 Ml Vial IVPUSH 10 mg Q6H PRN Administration blood pressure >180/110 Nifedipine 60 mg 10/18/23 09:00 10/18/23 10:24 Nifedipine Er 60 Mg Tab.Er.24 PO 60 mg DAILY [facility] Administration Protocol Ondansetron HCl 4 mg 10/17/23 20:26 10/18/23 15:40 Ondansetron Hcl 4 Mg/2 Ml Vial IVPUSH 4 mg Q8H PRN Administration Nausea and Vomiting Oxycodone HCl 10 mg 10/17/23 21:19 10/18/23 15:39 Oxycodone Hcl Immed Release 5 Mg Tablet PO 10 mg Q4H PRN Administration Pain, Severe (Pain Scale 7-10) Sodium Chloride 3 ml 10/18/23 00:00 10/18/23 15:43 0.9 % Sodium Chloride Flush 3 Ml Syringe IVFLUSH 3 ml QSHIFT [facility] Administration Torsemide 40 mg 10/18/23 09:00 10/18/23 10:23 Torsemide 20 Mg Tablet PO 40 mg BID [facility] Administration Protocol Discontinued Medications Generic Name Dose Route Start Last Admin Trade Name Freq PRN Reason Stop Dose Admin Albuterol Sulfate 2.5 mg/ 5 mg 10/17/23 20:01 10/17/23 20:14 Albuterol Sulfate 2.5 mg INHALE 10/17/23 20:02 5 mg ONCE ONE Administration Hydromorphone HCl 1 mg 10/17/23 19:34 10/17/23 19:48 Hydromorphone Hcl 2 Mg Tablet PO 10/17/23 19:35 1 mg ONCE ONE Administration Sodium Chloride 1,000 mls @ 999 mls/hr 10/17/23 19:45 10/17/23 20:29 Ns IV 10/17/23 20:45 Infused .Q1H1M [facility] Infusion Calcium Gluconate 2 gm in 100 mls @ 400 mls/hr 10/17/23 19:55 10/17/23 21:05 Calcium Gluconate IV 10/17/23 20:09 Infused ONCE ONE Infusion Insulin Human Regular 10 unit 10/17/23 19:55 10/17/23 21:02 Insulin Regular, Human 100 Unit/Ml 10 Ml Vial IVPUSH 10/17/23 19:56 10 unit ONCE ONE Administration Labetalol HCl 20 mg 10/18/23 02:38 10/18/23 02:54 Labetalol Hcl 100 Mg/20 Ml Vial IVPUSH 10/18/23 02:39 20 mg ONCE ONE Administration Sodium Zirconium Cyclosilicate 10 gm 10/17/23 19:39 10/17/23 19:47 Sodium Zirconium Cyclosilicate 10 Gm Powd.Pack PO 10/17/23 19:40 10 gm ONCE ONE Administration Medical Decision Making Medical Decision Making MDM Narrative: 33-year-old female with past medical history significant for insulin dependent diabetes, diabetic neuropathy, chronic diabetic foot ulcers to bilateral feet, diabetic retinopathy with blindness, PVD s/p bilateral transmetatarsal amputations, poorly-controlled hypertension due to noncompliance with medication, ESRD on hemodialysis T/, HFrEF, mood disorder, chronic pain with opioid seeking behavior presents to the ED today via EMS from home for evaluation of increased pain to bilateral feet (L>R) starting today. Differential diagnosis includes chronic diabetic ulcers. Osteomyelitis or cellulitis less likely. Concern for anemia, electrolyte abnormality. Plan for labs, xrs, re-evaluation. Differential Diagnosis Differential Diagnoses: The differential diagnosis associated with the presentation includes As above Admission/Observation Consideration of admission/observation: Escalation of care including admission/observation considered Patient to be admitted to medicine for hyperkalemia and MYNOR requiring hemodialysis. Consult Healthcare Provider Management of the patient was discussed with: Hospitalist (Dr. Sewell) and Senior Interior Designer (Dr. Siddiqi (nephrology)) Lab Data [facility] Lab Attestation statement: I reviewed the patient's lab results. As above 10/18/23 10:03 10/18/23 10:03 Labs: Lab Results 10/17/23 10/17/23 Range/Units 18:27 19:16 WBC 5.9 (4.8-10.8) X10*3/uL RBC 2.98 L (4.20-5.50) X10*6/uL Hgb 8.9 L (12.0-16.0) g/dl Hct 27.8 L (37.0-47.0) % MCV 93.3 (80.0-98.0) fL MCH 29.9 (27.0-33.0) pg MCHC 32.0 (31.0-35.0) g/dl RDW 17.0 H (11.0-16.0) % Plt Count 171 (160-400) X10*3/uL MPV 11.7 (9.4-12.3) fL Immature Gran % (Auto) 0.5 H (0.0-0.4) % Neut % (Auto) 80.8 H (45-73) % Lymph % (Auto) 6.9 L (20-40) % Hardy % (Auto) 9.1 (2-11) % Eos % (Auto) 2.4 (0-4) % Baso % (Auto) 0.3 (0-2) % Lymph # (Auto) 0.4 L (1.2-4.9) X10*3/uL Hardy # (Auto) 0.5 (0.1-1.2) X10*3/uL Eos # (Auto) 0.1 (0.0-0.4) X10*3/uL Baso # (Auto) 0.0 (0.0-0.2) X10*3/uL Abs Immat Gran (auto) 0.03 (0.00-0.03) X10*3/uL Absolute Neuts (auto) 4.8 (2.0-8.3) x10*3/uL Absolute Nucleated RBC 0.000 (0.0-0.012) X10*3/uL Nucleated RBC % (auto) 0.0 (0.0-0.2) /100WBC ESR 102 H (0-20) MM/HR Sodium 132 L (135-145) mmol/L Potassium 6.8 H* D (3.3-5.1) mmol/L Chloride 103 (96-108) mmol/L Carbon Dioxide 15 L (22-29) mmol/L Anion Gap 21 H (12-20) BUN 88 H (9-16) mg/dL Creatinine 9.38 H* (0.5-1.4) mg/dL Estim Creat Clear Calc 9.7 Estimated GFR 5 Random Glucose 149 H (60-115) mg/dL Lactic Acid 1.1 (0.5-2.0) mmol/L Calcium 8.1 L (8.4-10.2) mg/dL Magnesium 3.1 H (1.6-2.6) mg/dL Total Bilirubin 0.9 (0.0-1.0) mg/dL AST 25 (5-31) U/L ALT 12 (0-31) U/L Alkaline Phosphatase 161 H (39-117) U/L Troponin I High Sens 43.3 H D (<3.5-17.0) ng/L C-Reactive Protein 1.51 H (< or = 0.50) mg/dL Total Protein 8.2 H (6.5-8.0) g/dL Albumin 3.4 L (3.5-5.0) g/dL Independent Interpretation I performed an independent interpretation of an: EKG and Plain X-Ray Interpretation: EKG showing normal sinus rhythm with a rate of 87 beats per minute, right bundle-branch block, no acute ischemic changes or ST elevations. X-rays of right and left foot without evidence of osteo, agree with radiologist's interpretation. Radiology Impression Discussion of test interpretation with radiology: I have reviewed the radiologist's reading. Radiologist Impression: EXAMINATION: Right foot x-ray series. Left foot series. CLINICAL INFORMATION: Chronic ulcers. Question osteomyelitis. COMPARISON: Multiple prior imaging examinations including left foot x-ray August 2023 and right foot x-ray July 2023. MRI of the left foot August 2023. TECHNIQUE: 3 views of each foot FINDINGS: Right foot: Postoperative changes secondary to a transmetatarsal interpretation as seen previously. The bone and joints are otherwise unremarkable. No soft tissue gas or localized defect identified.. Arterial calcifications noted. Left foot: There has been interval surgery since the August x-ray with transmetatarsal amputations of the second third and fourth digits. Overlying soft tissues are unremarkable without identified ulcer Chronic periosteal reaction noted along the second third and fourth metatarsals unchanged. No new erosive change. Marked deformity of the tarsal joints and tarsometatarsal joints compatible with neuropathic arthropathy unchanged. XR/XR foot LT min 3V IMPRESSION: Right foot: Stable postoperative changes. No evidence for acute osteomyelitis radiographically Left foot: Postoperative changes and chronic changes compatible with neuropathic arthropathy. No radiographic findings to suggest acute osteomyelitis Electronically signed by: Chaparro Macdonald MD 10/17/2023 08:33 PM EDT RP Independent Historian Clinical information obtained from an independent historian. History obtained from or confirmed by: EMS External Record Review External record reviewed: Inpatient record, Office record, Outpatient record, Prior outpatient labs, Prior outpatient radiology, Primary care record and Outside ED record Prescription Management I considered prescription management with: Pain Medication Chronic Conditions Patient?s care impacted by: Diabetes Social Determinants Patient?s care significantly limited by Social Determinants of Health including: Other Social Determinant of Health Critical Care Time Critical Care Time Critical Care Time: Yes Total Critical Care Time: 35 Attestation: Critical care time in the amount of 35 minutes has been provided to the patient in terms of direct patient care, frequent reevaluation, consultation with atmospheric sciences professor and hospitalist, review and interpretation of medical data and results, and management of potentially life-threatening conditions. This is all outside of any medical procedures. Discharge Plan Discharge Clinical Impression: Acute hyperkalemia, Chronic ulcer of left foot due to diabetes mellitus, Acute kidney injury superimposed on chronic kidney disease, Chronic ulcer of right foot due to diabetes mellitus Patient Disposition: Admitted As Inpatient Interventions: Admission Worksheet (ED) Last Done: 10/17/23 22:06 Discharge Date/Time: 10/17/23 22:15
--- NOTE | 2023-10-17 19:39 | ECG_ITS ---
Test Reason : HIGH POTASSIUM Blood Pressure : / mmHG Vent. Rate : 087 BPM Atrial Rate : 087 BPM P-R Int : 180 ms QRS Dur : 158 ms QT Int : 436 ms P-R-T Axes : 046 -32 083 degrees QTc Int : 524 ms Normal sinus rhythm Possible Left atrial enlargement Left axis deviation Right bundle branch block Abnormal ECG When compared with ECG of 08-OCT-2023 15:35, Nonspecific T wave abnormality no longer evident in Inferior leads Referred By: Yashira Lopez Electronically Signed By:JULIÁN CANCINO
[2023-10-17 19:40] LABS: Alanine Aminotransferase 12 U/L (0-31); Albumin Level 3.4 g/dL (3.5-5.0); Alkaline Phosphatase 161 U/L (39-117); Anion Gap 21 (12-20); Aspartate Amino Transferase 25 U/L (5-31); Bilirubin Total 0.9 mg/dL (0.0-1.0); Blood Urea Nitrogen 88 mg/dL (9-16); C Reactive Protein 1.51 mg/dL (< or = 0.50); Calcium 8.1 mg/dL (8.4-10.2); Carbon Dioxide 15 mmol/L (22-29); Chloride 103 mmol/L (96-108); Creatinine Clr Calc Pharmacy 9.7; Estimated Glomerular Filt Rate 5; Glucose Random 149 mg/dL (60-115); Magnesium 3.1 mg/dL (1.6-2.6); Potassium 6.8 mmol/L (3.3-5.1); Sodium 132 mmol/L (135-145); Total Protein 8.2 g/dL (6.5-8.0)
[2023-10-17 19:42] LABS: Erythrocyte Sedimentation Rate 102 MM/HR (0-20)
[2023-10-17 19:43] LABS: Troponin-I High Sensitivity 43.3 ng/L (<3.5-17.0)
[2023-10-17] MEDS: Sodium Zirconium Cyclosilicate 10 GM POWD.PACK PO (19:47)
[2023-10-17] MEDS: 0.9 % Sodium Chloride 1,000 ML 999 ML IV (19:48)
[2023-10-17] MEDS: HYDROmorphone HCl 2 MG TABLET 1 MG PO (19:48)
[2023-10-17] MEDS: Albuterol Sulfate 2.5 MG, Albuterol Sulfate (0.083%) 2.5 MG 5 MG INHALE (20:14)
[2023-10-17 20:15] VITALS: PULSE 84; RESP 18; O2SAT 95
[2023-10-17 20:23] VITALS: BP 168/86; PULSE 87; RESP 16; O2SAT 95
[2023-10-17] MEDS: Calcium Gluconate/NaCl,Iso-Osm 2 GM/100 ML PLAST..BAG IV (20:28)
--- NOTE | 2023-10-17 20:38 | PM.IMHP ---
History of Present Illness Date of Service: 10/17/23 Attending physician on admission: Alejandra Sewell Chief Complaint: Foot pain Pt is a 33-year-old female with a PMH significant for?ESRD on HD Sun/Sun/Sun, multiple hospitalizations due to noncompliance with hemodialysis, diabetic retinopathy with blindness, peripheral vascular disease (s/p bilat transmetatarsal amputation), poorly controlled hypertension due to noncompliance with medications, chronic respiratory failure on supplemental oxygen, HFrEF, mood disorder, chronic pain with opiate seeking behavior who presents to the ED for evaluation of left foot pain. Pt was just discharged 2 days prior on 10/14 after being admitted and treated for acute dyspnea due to volume overload in the setting of missed hemodialysis. During admission patient also underwent debridement of left foot and heel wounds in OR by Dr. Rajput. Per patient, she received dialysis on Sunday and was told she could wait until for her next dialysis appointment. Reports earlier today was being showered by her sister who was concerned after noticing the top of her left foot looked black. Reports called Dr. Rajput's office and was told to come to the ED for further evaluation. Has not yet established follow up appointment with wound care clinic. Pt complains of increasing bilateral foot pain that radiates up legs to lower back and both shoulders. No fever or chills. Denies CP of SOB. Labs were drawn and revealed severe hyperkalemia of 6.8. Nephrology was consulted and suggested patient being admitted to the hospital for emergent dialysis. In the ED pt was tachycardic up to 94 and hypertensive up 168/86. Labs were significant for chronic normocytic anemia 8.9/27.8, ESR 102, sodium 132, potassium 6.8, bicarb 15, BUN 88, creatinine 9.38, magnesium 3.1, alk-phos 161, initial troponin 43.1, and CRP 1.51. X-ray of right foot showed stable postoperative changes with no evidence for acute osteomyelitis. X-ray of left foot found postoperative changes and chronic changes compatible with neuropathic arthroplasty, but no radiographic findings to suggest acute osteomyelitis. EKG demonstrated normal sinus rhythm with RBBB and no evidence of hyperkalemic EKG changes. Pt was treated with Lokelma, calcium gluconate, albuterol, hydromorphone 1 mg p.o., IVF, and insulin 10 units. Pt will be admitted to the hospital for acute hyperkalemia and other electrolyte abnormalities requiring emergent dialysis. Review of Systems Review of Systems: Worsening bilateral foot pain radiating to back and shoulders Black skin on left foot Denies fever, chills, nausea, vomiting No shortness a breath or chest pain [facility] Medical History Plantar ulcer of left foot Major depressive disorder, single episode, severe ESRD (end stage renal disease) Non-compliance with renal dialysis Hypertensive urgency MDD (major depressive disorder), recurrent episode MDD (major depressive disorder) Renal failure Foot ulcer CKD (chronic kidney disease) Hypertension Diabetic foot Hyperkalemia Vomiting Renal failure Hypertension Migraine Chronic pain ESRD on dialysis Non-compliance with renal dialysis Hypertension End-stage renal disease (ESRD) Gastroparesis Diabetic foot ulcer associated with type 2 diabetes mellitus Hypertensive emergency Diabetes ESRD needing dialysis Cardiomyopathy HFrEF (heart failure with reduced ejection fraction) Metabolic acidosis delivery delivered Anemia in chronic kidney disease (CKD) Anemia CKD (chronic kidney disease) Headache, migraine Abnormal finding on echocardiogram Elevated troponin Chest pain Acute worsening of stage 3 chronic kidney disease Generalized edema Sepsis Cellulitis Pleural effusion CHF (congestive heart failure) (~06/07/22) Tachycardia Atypical chest pain Bone infection PAD (peripheral artery disease) Severe anemia Cellulitis and abscess of foot DM foot ulcer Osteomyelitis Asthma Depression with anxiety Diabetic retinopathy Type 2 diabetes mellitus with hyperglycemia, with long-term current use of insulin Blind right eye Diabetes Back pain Family History Mother Coronary artery disease Myocardial infarction Stroke Diabetes mellitus Father Myocardial infarction Surgical History Tubal ligation status Previous section Hx laparoscopic cholecystectomy Hx of surgical procedure (~09/11/23) 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 Social History Household Members: Spouse and Family Household Members Other:: sister Housing: Apartment Do you presently have visiting nurse or other home services: No Unable to assess alcohol history related to: Unknown Alcohol intake: never 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 Patient Tobacco Use Status: Never used Tobacco Smoked in Last 30 Days: No e-Cigarette/Vaping Use: Never Used Second Hand Smoke Exposure: No Use of substances other than those prescribed or required for medical reasons: No Advance Directives: Yes Advance Directives on File: Yes Advance Directives Date on File: 09/04/23 Do you have a plan to hurt others: No Plan Nutrition Risks: No Nutritional Risk Patient : No service: No Current occupational status: unemployed and disabled Gender identity: Female Meds Allergies Allergy/AdvReac Type Severity Reaction Status Date / Time morphine [MORPHINE] Allergy Intermediate Itching Verified 10/17/23 18:02 azithromycin [From Zithromax] Allergy Hives Verified 10/17/23 18:02 gabapentin Allergy Facial Verified 10/17/23 18:02 Swelling tramadol Allergy Facial Verified 10/17/23 18:02 Swelling vancomycin Allergy Anaphylaxis Verified 10/17/23 18:02 Active Medications: Current Medications Acetaminophen (Acetaminophen 325 Mg Tablet) 650 mg PO Q6H PRN PRN Reason: Pain, Mild (Pain Scale 1-3), fever or headache Calcium Carbonate (Calcium Carbonate 750 Mg Tab.Chew) 750 mg PO Q4H PRN PRN Reason: Heartburn Heparin Sodium (Porcine) (Heparin Sodium,Porcine 5,000 Unit/Ml Vial) 5,000 unit SUBCUT Q12H [facility] Dextrose (D10) 250 mls @ 750 mls/hr IV Q15M PRN PRN Reason: per Hypoglycemia Standing Ord. Magnesium Hydroxide (Milk Of Magnesia 30 Ml Oral.Susp) 30 ml PO DAILY PRN PRN Reason: Constipation Melatonin (Melatonin 3 Mg Tablet) 6 mg PO BEDTIME PRN PRN Reason: Insomnia Ondansetron HCl (Ondansetron Hcl 4 Mg/2 Ml Vial) 4 mg IVPUSH Q8H PRN PRN Reason: Nausea and Vomiting Sodium Chloride (0.9 % Sodium Chloride Flush 3 Ml Syringe) [facility] Medications ?Medication ?Instructions ?Recorded ?Confirmed ?Last Taken ?Type carvedilol 12.5 mg tablet 12.5 mg PO BID 06/05/23 10/17/23 10/17/23 History torsemide 20 mg tablet 40 mg PO BID 06/05/23 10/17/23 10/17/23 History calcium carbonate (Calcium Antacid) 1 tab PO TIDWM 08/28/23 10/17/23 10/17/23 History diphenhydramine HCl 12.5 mg/5 mL 25 mg PO BEDTIME 10/08/23 10/17/23 10/17/23 History oral elixir nifedipine 60 mg tablet,extended 60 mg PO DAILY 10/08/23 10/17/23 10/17/23 History release 24 hr Physical Exam Vital Signs and Narrative: Vital Signs: Last Vital Signs Temp 97.6 F 10/17/23 18:05 Pulse 87 10/17/23 20:23 Resp 16 10/17/23 20:23 BP 168/86 H 10/17/23 20:23 Pulse Ox 95 10/17/23 20:23 O2 Del Method Oxymask 10/17/23 20:23 O2 Flow Rate 8 10/17/23 20:23 BMI result Body Mass Index 29.6 General: AOx3, tearful, in no acute distress Resp: CTA bilaterally CVS: S1, S2, murmur GI: +BS, NT, no distention Skin: Warm, dry Neuro: Cranial nerves II-XII grossly intact bilaterally. Motor grossly intact bilaterally Extremities: Chronic nonhealing wounds and post-operative changes as pictured below. No overt signs of infection or necrosis. Results Labs 10/17/23 18:27 10/17/23 19:16 Labs: Laboratory Results - last 24 hr 10/17/23 10/17/23 18:27 19:16 MCV 93.3 MCH 29.9 MCHC 32.0 RDW 17.0 H Plt Count 171 MPV 11.7 Immature Gran % (Auto) 0.5 H Neut % (Auto) 80.8 H Lymph % (Auto) 6.9 L [place] % (Auto) 9.1 Eos % (Auto) 2.4 Baso % (Auto) 0.3 Lymph # (Auto) 0.4 L [place] # (Auto) 0.5 Eos # (Auto) 0.1 Baso # (Auto) 0.0 Abs Immat Gran (auto) 0.03 Absolute Neuts (auto) 4.8 Absolute Nucleated RBC 0.000 Nucleated RBC % (auto) 0.0 ESR 102 H Anion Gap 21 H Estim Creat Clear Calc 9.7 Estimated GFR 5 Random Glucose 149 H Lactic Acid 1.1 Calcium 8.1 L Magnesium 3.1 H Total Bilirubin 0.9 AST 25 ALT 12 Alkaline Phosphatase 161 H Troponin I High Sens 43.3 H D C-Reactive Protein 1.51 H Total Protein 8.2 H Albumin 3.4 L Imaging Radiologist's Impressions: Impressions Foot X-Ray 10/17/23 19:19 IMPRESSION: Right foot: Stable postoperative changes. No evidence for acute osteomyelitis radiographically Left foot: Postoperative changes and chronic changes compatible with neuropathic arthropathy. No radiographic findings to suggest acute osteomyelitis Electronically signed by: Chaparro Macdonald MD 10/17/2023 08:33 PM EDT RP Foot X-Ray 10/17/23 19:19 IMPRESSION: Right foot: Stable postoperative changes. No evidence for acute osteomyelitis radiographically Left foot: Postoperative changes and chronic changes compatible with neuropathic arthropathy. No radiographic findings to suggest acute osteomyelitis Electronically signed by: Chaparro Macdonald MD 10/17/2023 08:33 PM EDT RP Assessment and Plan (1) Acute hyperkalemia: Status: Acute Plan Pt is a 33-year-old female with a PMH significant for?ESRD on HD Sun/Sun/Sun, multiple hospitalizations due to noncompliance with hemodialysis, diabetic retinopathy with blindness, peripheral vascular disease (s/p bilat transmetatarsal amputation), poorly controlled hypertension due to noncompliance with medications, chronic respiratory failure on supplemental oxygen, HFrEF, mood disorder, chronic pain with opiate seeking behavior who presents to the ED for evaluation of left foot pain. Acute hyperkalemia Potassium 6.8 at time of presentation; no EKG changes Patient with long history of noncompliance with HD Often refuses to go on HD on Saturdays Patient given Lokelma, calcium gluconate, and albuterol Nephrology consult Emergent inpatient dialysis Follow BMP Monitor on telemetry Hypertension Poorly controlled due to suspected noncompliance Resume p.o. hydralazine, 12.5mg carvediolol Follow bp Elevated troponin Likely chronic troponin leak vs uncontrolled htn No chest pain, ekg without acute ischemic changes Chronic pain disorder Allergy to morphine, tramadol, gabapentin P.O. oxycodone and hydromorphone on pain scale Chronic bilateral diabetic foot ulcer Wounds appears clean/dry without evidence of acute infection Recent debridement by Dr. Rajput in General surgery 10/12/2023 critical care physician assistant consult Wup-cwirwvs-towxdufor type 2 diabetes POC glucose, diabetic diet Humalog on sliding scale HFrEF with chronic hypoxemic respiratory failure Not in acute exacerbation, no evidence of volume overload Resume HD as above for management of volume Continue po diuretics Continue 4 L supplemental O2, home dose CAD/Cardiomyopathy Continue ASA, beta-mohamud Isosorbide mononitrate discontinued at last admission due to patient noncompliance Diabetic polyneuropathy Continue home pain medications Patient with long history of IV Dilaudid-seeking behavior Full Code Attending:?Dr. Sewell DVT Prophylaxis: Lovenox Pt will require a hospitalization of at least two nights for treatment of?acute hyperkalemia and other electrolyte abnormality secondary to missed dialysis. Patient require close monitoring of cardiac function, labs, and will need emergent inpatient dialysis. Quality Stroke Does the patient have a stroke diagnosis?: No VTE Prior VTE?: No VTE Risk Level:: Medical - moderate - high VTE Device Contraindication: Treatment Not Indicated VTE Drug Contraindication: N/A - Med Ordered
--- NOTE | 2023-10-17 20:51 | PHA.MEDREC ---
Addendum entered by Jose Manuel Brown [facility] 10/17/23 20:58: med rec reviewed Original Note: Pharmacy Consult ? Medication Reconciliation Pharmacy has completed the medication reconciliation. Patient was visibly upset when I came into the room but was compliant and verified that her DC packet from 10/14 was up to date and she stated she last took her medications today.
[2023-10-17] MEDS: Insulin Regular, Human 100 UNIT/ML 10 ML VIAL 10 UNIT IVPUSH (21:02)
[2023-10-18] VITALS (16 sets, daily range): BP systolic 152–215; BP diastolic 76–119; PULSE 73–104; RESP 18–20; TEMP 36.2–36.7; O2SAT 90–96; BMI 26.8
[2023-10-18] MEDS: 0.9 % Sodium Chloride Flush 3 ML SYRINGE IVFLUSH ×3 (02:15→15:43)
--- NOTE | 2023-10-18 02:40 | MHC.PIE ---
P.BP 215/119 ,200/104 I.BLOOD PRESSURES REPORTED TO .ORDER FOR LABETOLOL 20MG IV X 1 GIVEN. E.BP 179/95 AFTER MED,CONT.TO MONITOR.
[2023-10-18] MEDS: oxyCODONE HCl Immed Release 5 MG TABLET 10 MG PO ×4 (02:53→20:05)
[2023-10-18] MEDS: Labetalol HCL 100 MG/20 ML VIAL 20 MG IVPUSH (02:54)
[2023-10-18 07:29] LABS: Glucose, Whole Blood 102 mg/dL (60-115)
--- NOTE | 2023-10-18 09:02 | MHC.CM.PN ---
CM met with Patient at bedside and addressed IMM with her (Patient did not want to sign IMM ,but it was discussed verbally with her and the original was given to her) (a copy was placed on the chart). Patient lives in an apartment with her Sister/HCP/[employer]EL[employer] (through [employer]/50 hours/week) and she uses a w/c for mobility. Patient has home O2 through [employer] and HD Q T//Sat @ [facility]. Patient does NOT want VNA; she prefers that her Sister complete her wound care. Sister will also transport to home and PCP is Dr. Genevieve Casillas.
[2023-10-18 10:13] LABS: Hemoglobin 7.8 g/dl (12.0-16.0); Mean Corpuscular HGB Conc 31.2 g/dl (31.0-35.0); Mean Corpuscular Hemoglobin 29.4 pg (27.0-33.0); Mean Corpuscular Volume 94.3 fL (80.0-98.0); Mean Platelet Volume 12.5 fL (9.4-12.3); Platelet Count 144 X10*3/uL (160-400); Red Blood Count 2.65 X10*6/uL (4.20-5.50); Red Cell Distribution Width 16.8 % (11.0-16.0); White Blood Count 4.5 X10*3/uL (4.8-10.8)
[2023-10-18] MEDS: Torsemide 20 MG TABLET 40 MG PO (10:23)
[2023-10-18] MEDS: NIFEdipine ER 60 MG TAB.ER.24 PO (10:24)
[2023-10-18] MEDS: hydrALAZINE HCl 50 MG TABLET PO ×3 (10:24→20:06)
[2023-10-18] MEDS: carvediloL 12.5 MG TABLET PO ×2 (10:24→20:07)
--- NOTE | 2023-10-18 10:37 | P.PNIM_ITS ---
Subjective Subjective Date of Service: 10/18/23 Interval History: seen and examined this AM refusing lab draws, requesting pain medications for foot pain Physical Exam 2 Vital Signs: Vital Signs: Last Vital Signs Temp 98.0 F 10/18/23 08:00 Pulse 88 10/18/23 10:24 Resp 20 10/18/23 08:00 BP 182/90 H 10/18/23 10:24 Pulse Ox 95 10/18/23 03:50 O2 Del Method Room Air 10/18/23 08:00 O2 Flow Rate 8 10/17/23 20:23 BMI result Body Mass Index 26.8 Const: Other: General - no acute distress, appears comfortable Cardiovascular - regular rate and rhythm, S1-S2 Lungs - normal respiratory effort, clear to auscultation bilaterally, no wheezing Abdomen - soft, nontender, no rebound or guarding Extremities - bilateral LE dressing in place -- clean/dry Neuro - awake and alert, no focal deficits Objective Data Active Medications Acetaminophen (Acetaminophen 325 Mg Tablet) 650 mg PO Q6H PRN PRN Reason: Pain, Mild (Pain Scale 1-3), fever or headache Calcium Carbonate (Calcium Carbonate 750 Mg Tab.Chew) 750 mg PO Q4H PRN PRN Reason: Heartburn Carvedilol (Carvedilol 12.5 Mg Tablet) 12.5 mg PO BID [facility]; Protocol Last Admin: 10/18/23 10:24 Dose: 12.5 mg Documented By: MIKE Diphenhydramine HCl (Diphenhydramine Hcl 12.5 Mg/5 Ml Liquid) 25 mg PO BEDTIME [facility] Glucose (Glucose Gel 15 Gm Gel..Gram.) 15 gm PO Q15M PRN; Protocol PRN Reason: per Hypoglycemia Standing Ord. Heparin Sodium (Porcine) (Heparin Sodium,Porcine 5,000 Unit/Ml Vial) 5,000 unit SUBCUT Q12H [facility] Last Admin: 10/18/23 10:22 Dose: Not Given Documented By: MIKE Non-Admin Reason: Patient Refused Hydralazine HCl (Hydralazine Hcl 50 Mg Tablet) 50 mg PO TID [facility]; Protocol Last Admin: 10/18/23 10:24 Dose: 50 mg Documented By: MIKE Dextrose (D10) 250 mls @ 750 mls/hr IV Q15M PRN PRN Reason: per Hypoglycemia Standing Ord. Dextrose (D10) 250 mls @ 750 mls/hr IV Q15M PRN; Protocol PRN Reason: per Hypoglycemia Standing Ord. Insulin Human Lispro (Insulin Lispro 100 Unit/Ml 3 Ml Vial) 0 unit SUBCUT QIDACHS [facility]; Protocol Last Admin: 10/18/23 07:37 Dose: Not Given Documented By: MIKE Non-Admin Reason: No Insulin Coverage Magnesium Hydroxide (Milk Of Magnesia 30 Ml Oral.Susp) 30 ml PO DAILY PRN PRN Reason: Constipation Melatonin (Melatonin 3 Mg Tablet) 6 mg PO BEDTIME PRN PRN Reason: Insomnia Nifedipine (Nifedipine Er 60 Mg Tab.Er.24) 60 mg PO DAILY [facility]; Protocol Last Admin: 10/18/23 10:24 Dose: 60 mg Documented By: MIKE Ondansetron HCl (Ondansetron Hcl 4 Mg/2 Ml Vial) 4 mg IVPUSH Q8H PRN PRN Reason: Nausea and Vomiting Oxycodone HCl (Oxycodone Hcl Immed Release 5 Mg Tablet) 10 mg PO Q4H PRN PRN Reason: Pain, Severe (Pain Scale 7-10) Last Admin: 10/18/23 10:24 Dose: 10 mg Documented By: MIKE Oxycodone HCl (Oxycodone Hcl Immed Release 5 Mg Tablet) 5 mg PO Q4H PRN PRN Reason: Pain, Moderate(Pain Scale 4-6) Sodium Chloride (0.9 % Sodium Chloride Flush 3 Ml Syringe) 3 ml IVFLUSH [facility] Last Admin: 10/18/23 10:27 Dose: 3 ml Documented By: MIKE Torsemide (Torsemide 20 Mg Tablet) 40 mg PO BID [facility]; Protocol Last Admin: 10/18/23 10:23 Dose: 40 mg Documented By: MIKE Labs 10/18/23 10:03 10/17/23 19:16 Labs: Laboratory Results - last 24 hr 10/17/23 10/17/23 10/18/23 18:27 19:16 07:07 MCV 93.3 MCH 29.9 MCHC 32.0 RDW 17.0 H Plt Count 171 MPV 11.7 Immature Gran % (Auto) 0.5 H Neut % (Auto) 80.8 H Lymph % (Auto) 6.9 L [place] % (Auto) 9.1 Eos % (Auto) 2.4 Baso % (Auto) 0.3 Lymph # (Auto) 0.4 L [place] # (Auto) 0.5 Eos # (Auto) 0.1 Baso # (Auto) 0.0 Abs Immat Gran (auto) 0.03 Absolute Neuts (auto) 4.8 Absolute Nucleated RBC 0.000 Nucleated RBC % (auto) 0.0 ESR 102 H Anion Gap 21 H Estim Creat Clear Calc 9.7 Estimated GFR 5 POC Glucose 102 Random Glucose 149 H Lactic Acid 1.1 Calcium 8.1 L Magnesium 3.1 H Total Bilirubin 0.9 AST 25 ALT 12 Alkaline Phosphatase 161 H Troponin I High Sens 43.3 H D C-Reactive Protein 1.51 H Total Protein 8.2 H Albumin 3.4 L 10/18/23 10:03 MCV 94.3 MCH 29.4 MCHC 31.2 RDW 16.8 H Plt Count 144 L MPV 12.5 H Immature Gran % (Auto) Neut % (Auto) Lymph % (Auto) [place] % (Auto) Eos % (Auto) Baso % (Auto) Lymph # (Auto) [place] # (Auto) Eos # (Auto) Baso # (Auto) Abs Immat Gran (auto) Absolute Neuts (auto) Absolute Nucleated RBC 0.000 Nucleated RBC % (auto) 0.0 ESR Anion Gap Estim Creat Clear Calc Estimated GFR POC Glucose Random Glucose Lactic Acid Calcium Magnesium Total Bilirubin AST ALT Alkaline Phosphatase Troponin I High Sens C-Reactive Protein Total Protein Albumin Assessment and Plan (1) Acute hyperkalemia: Status: Acute Plan 33 yo F with multiple medical issues including ESRD on HD (, , S), DM s/p multiple amputations, diabetic retinopathy and blindness, chronic resp failure, HTN, HFrEF, chronic pain who presented to the hospita with foot pain and was found to have severe hyperK requiring emergent dialysis. 1. ESRD with acutehyperkalemia due to non-compliance -- she reports that she did not go to her scheduled dialysis this Sunday refusing labs this AM -- discussed with her of the importance of labs, she has agreed -- pending will d/w nephro on when next dialysis is needed 2. Poorly controlled HTN again, due to non-compliance continue baseline meds 3. Bilateral LE amputations / PVD seen by wound care -- no concerners for acute infection / XR without acute findings outpatient wound care f/u 4. DM sliding scale 5. HFrEF / chronic resp failure at baseline, continue meds Full Code DVT pptx -- heparin Possible d/c later today if labs okay and does not need repeat dialysis. Quality Stroke Does the patient have a stroke diagnosis?: No VTE Prior VTE?: No VTE Risk Level:: Medical - moderate - high VTE Device Contraindication: Treatment Not Indicated VTE Drug Contraindication: N/A - Med Ordered
[2023-10-18 11:06] LABS: Anion Gap 17 (12-20); Blood Urea Nitrogen 41 mg/dL (9-16); Calcium 8.4 mg/dL (8.4-10.2); Carbon Dioxide 22 mmol/L (22-29); Chloride 100 mmol/L (96-108); Creatinine Clr Calc Pharmacy 16.2; Estimated Glomerular Filt Rate 9; Glucose Random 118 mg/dL (60-115); Potassium 4.4 mmol/L (3.3-5.1); Sodium 135 mmol/L (135-145)
[2023-10-18 11:59] LABS: Glucose, Whole Blood 122 mg/dL (60-115)
--- NOTE | 2023-10-18 12:07 | HO.WOUND ---
Wound Consult: Initial 33yr old female? admitted to [facility] on 10/17/23 - See progress notes and H&P for detailed history.? This patient is known to this senior copywriter for frequent readmissions see chart for history. Wound consult placed for Bilateral lower foot wounds. Patient agreeable to assessment and photo documentation.? Patient teary at bedside and reports feeling frustrated and would like to dicsuss possible amputation with surgical team - Dr. Weeks notified of patient request. Photo from last admission 10/09/23 10/18/23 Left TMA site - Improving Dehiscence of surgical site - no active drainage noted - -red dry wound bed noted - Durafiber Ag applied - Patient requesting surgical consult for evaluation for amputation options. Right Plantar Diabetic Wound - No photo obtained - dry stable scabbed wound bed - painted with betadine Right Lateral Diabetic Wound - no photo obtained - healed and intact at this time Right Dorsal Diabetic Wound - dry black scab vs eschar - painted with Betadine 10/09/23 last admission Left Heel - Diabetic Wound s/p debridement last admission - stable black scab vs eschar - no odor not leaking noted 10/09/23 Left Plantar Diabetic Wound - red pink moist wound bed callused edges Etiology: ??Diabetic Wounds with various measurements and in various stages of healing Wound Bed: various amounts of slough and eschar noted Drainage / Odor: no odor noted - no actue infection noted to any wound to the feet Pain: patient reports significant pain Goals of Treatment: ?[place] with Betadine - Durafiber Ag for moisture management and consult to surgery per pt request Recommendations: 1. Turn and Reposition every 2 hours and as needed for patient comfort.? Use pillows or wedges to support off loading positions. 2. Off Load all bony prominences with use of pillows and heel boots if needed.? Apply Preventative foams where needed. ? 3. Monitor for incontinence and moisture control, use barrier creams when needed for prevention and treatment. 4. Provide adequate and supplemental nutrition.? 5. Order or Continue low air loss mattress. 6. When applicable maintain blood glucose levels per Providers order. 7. Bilateral Lower Legs wounds - Elevate heels off of bed surface with pillows. Cleanse with Betadine. Cover wound beds with Durafiber AG and ABD pad and gauze wrap. Change every other day. Re-consult wound care Nurse for wound deterioration or wound changes.
--- NOTE | 2023-10-18 14:45 | P.CONNP_ITS ---
History of Present Illness Reason for Consult Consult date: 10/18/23 Chief Complaint Chief complaint: Missed hd History of Present Illness Narrative: RTANE Consulted for dailysis management 33 y/o ESRD h/o non-compliance adm w foot cellulitis; usu HD TTS at [facility] H/O 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, peripheral arterial disease status post bilateral TMA, poorly controlled hypertension due to noncompliance with medications, chronic hypoxic respiratory failure on 4 L baseline supplemental oxygen, congestive heart failure with reduced ejection fraction, mood disorder, chronic pain with opioid seeking behavior Review of Systems Review of Systems Yes all other systems are reviewed and are negative PMFSH Past Medical History Medical History Plantar ulcer of left foot Major depressive disorder, single episode, severe ESRD (end stage renal disease) Non-compliance with renal dialysis Hypertensive urgency MDD (major depressive disorder), recurrent episode MDD (major depressive disorder) Renal failure Foot ulcer CKD (chronic kidney disease) Hypertension Diabetic foot Hyperkalemia Vomiting Renal failure Hypertension Migraine Chronic pain ESRD on dialysis Non-compliance with renal dialysis Hypertension End-stage renal disease (ESRD) Gastroparesis Diabetic foot ulcer associated with type 2 diabetes mellitus Hypertensive emergency Diabetes ESRD needing dialysis Cardiomyopathy HFrEF (heart failure with reduced ejection fraction) Metabolic acidosis delivery delivered Anemia in chronic kidney disease (CKD) Anemia CKD (chronic kidney disease) Headache, migraine Abnormal finding on echocardiogram Elevated troponin Chest pain Acute worsening of stage 3 chronic kidney disease Generalized edema Sepsis Cellulitis Pleural effusion CHF (congestive heart failure) (~06/07/22) Tachycardia Atypical chest pain Bone infection PAD (peripheral artery disease) Severe anemia Cellulitis and abscess of foot DM foot ulcer Osteomyelitis Asthma Depression with anxiety Diabetic retinopathy Type 2 diabetes mellitus with hyperglycemia, with long-term current use of insulin Blind right eye Diabetes Back pain Family History Family History Mother Coronary artery disease Myocardial infarction Stroke Diabetes mellitus Father Myocardial infarction Surgical History Surgical History Tubal ligation status Previous section Hx laparoscopic cholecystectomy Hx of surgical procedure (~09/11/23) 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 Social History Social History Household Members: Family Household Members Other:: sister Housing: Apartment Do you presently have visiting nurse or other home services: No Unable to assess alcohol history related to: Unknown Alcohol intake: never 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 Patient Tobacco Use Status: Never used Tobacco e-Cigarette/Vaping Use: Never Used Second Hand Smoke Exposure: No Advance Directives Date on File: 09/04/23 service: No Current occupational status: unemployed and disabled Gender identity: Female Meds Allergies Allergy/AdvReac Type Severity Reaction Status Date / Time morphine [MORPHINE] Allergy Intermediate Itching Verified 10/17/23 18:02 azithromycin [From Zithromax] Allergy Hives Verified 10/17/23 18:02 gabapentin Allergy Facial Verified 10/17/23 18:02 Swelling tramadol Allergy Facial Verified 10/17/23 18:02 Swelling vancomycin Allergy Anaphylaxis Verified 10/17/23 18:02 Active Medications: Current Medications Acetaminophen (Acetaminophen 325 Mg Tablet) 650 mg PO Q6H PRN PRN Reason: Pain, Mild (Pain Scale 1-3), fever or headache Calcium Carbonate (Calcium Carbonate 750 Mg Tab.Chew) 750 mg PO Q4H PRN PRN Reason: Heartburn Carvedilol (Carvedilol 12.5 Mg Tablet) 12.5 mg PO BID [facility]; Protocol Last Admin: 10/18/23 10:24 Dose: 12.5 mg Diphenhydramine HCl (Diphenhydramine Hcl 12.5 Mg/5 Ml Liquid) 25 mg PO BEDTIME [facility] Glucose (Glucose Gel 15 Gm Gel..Gram.) 15 gm PO Q15M PRN; Protocol PRN Reason: per Hypoglycemia Standing Ord. Heparin Sodium (Porcine) (Heparin Sodium,Porcine 5,000 Unit/Ml Vial) 5,000 unit SUBCUT Q12H [facility] Last Admin: 10/18/23 10:22 Dose: Not Given Hydralazine HCl (Hydralazine Hcl 50 Mg Tablet) 50 mg PO TID [facility]; Protocol Last Admin: 10/18/23 10:24 Dose: 50 mg Dextrose (D10) 250 mls @ 750 mls/hr IV Q15M PRN PRN Reason: per Hypoglycemia Standing Ord. Dextrose (D10) 250 mls @ 750 mls/hr IV Q15M PRN; Protocol PRN Reason: per Hypoglycemia Standing Ord. Insulin Human Lispro (Insulin Lispro 100 Unit/Ml 3 Ml Vial) 0 unit SUBCUT QIDACHS [facility]; Protocol Last Admin: 10/18/23 12:01 Dose: Not Given Magnesium Hydroxide (Milk Of Magnesia 30 Ml Oral.Susp) 30 ml PO DAILY PRN PRN Reason: Constipation Melatonin (Melatonin 3 Mg Tablet) 6 mg PO BEDTIME PRN PRN Reason: Insomnia Metoclopramide HCl (Metoclopramide Hcl 10 Mg/2 Ml Vial) 5 mg IVPUSH Q6H PRN PRN Reason: Nausea and Vomiting Nifedipine (Nifedipine Er 60 Mg Tab.Er.24) 60 mg PO DAILY [facility]; Protocol Last Admin: 10/18/23 10:24 Dose: 60 mg Ondansetron HCl (Ondansetron Hcl 4 Mg/2 Ml Vial) 4 mg IVPUSH Q8H PRN PRN Reason: Nausea and Vomiting Oxycodone HCl (Oxycodone Hcl Immed Release 5 Mg Tablet) 10 mg PO Q4H PRN PRN Reason: Pain, Severe (Pain Scale 7-10) Last Admin: 10/18/23 10:24 Dose: 10 mg Sodium Chloride (0.9 % Sodium Chloride Flush 3 Ml Syringe) [facility] Last Admin: 10/18/23 10:27 Dose: 3 ml Torsemide (Torsemide 20 Mg Tablet) 40 mg PO BID [facility]; Protocol Last Admin: 10/18/23 10:23 Dose: 40 mg Home Medications ?Medication ?Instructions ?Recorded ?Confirmed ?Last Taken ?Type carvedilol 12.5 mg tablet 12.5 mg PO BID 06/05/23 10/17/23 10/17/23 History torsemide 20 mg tablet 40 mg PO BID 06/05/23 10/17/23 10/17/23 History calcium carbonate (Calcium Antacid) 1 tab PO TIDWM 08/28/23 10/17/23 10/17/23 History diphenhydramine HCl 12.5 mg/5 mL 25 mg PO BEDTIME 10/08/23 10/17/23 10/17/23 History oral elixir nifedipine 60 mg tablet,extended 60 mg PO DAILY 10/08/23 10/17/23 10/17/23 History release 24 hr Physical Exam Vital Signs: Last Vital Signs Temp 97.4 F 10/18/23 12:00 Pulse 83 10/18/23 12:00 Resp 20 10/18/23 12:00 BP 182/94 H 10/18/23 12:00 Pulse Ox 90 L 10/18/23 12:00 O2 Del Method Room Air 10/18/23 12:00 O2 Flow Rate 8 10/17/23 20:23 BMI result Body Mass Index 26.8 cvs: s1s2 RS; cta ABd; soft Results Lab Results 10/18/23 10:03 10/18/23 10:03 Lab results: Chemistry 10/17/23 10/18/23 19:16 10:03 Sodium 132 L 135 Potassium 6.8 H* D 4.4 D Carbon Dioxide 15 L 22 BUN 88 H 41 H Creatinine 9.38 H* 5.37 H* Calcium 8.1 L 8.4 Hematology 10/17/23 10/18/23 18:27 10:03 WBC 5.9 4.5 L Hgb 8.9 L 7.8 L Plt Count 171 144 L Assessment and Plan (1) Hypertension, uncontrolled: Status: Acute (2) ESRD (end stage renal disease): Status: Acute Plan ESRD: TTS; mised [place] on sunday _ received HD sunday, next planned for sunday Nephrogenic anemia HTN- part of this is volume mediated, will pull fluids with dialysis increase hydrlazine to 100mg tid if needed cont labetalol iv prn cont carvedilol and nifedepine Non-compliance REC: HD again Sun then get her back on TTS scedule; meds as noted; epo as ordered will follow w team Procedures Date of Service Date of Service: 10/18/23
--- NOTE | 2023-10-18 15:18 | PC.NURSE ---
1347 pt experiencing episode of nausea and vomiting . MD Weeks aware, PRN meds ordered ( see MAR). Pt refusing meds. All other needs met at this time, call moore is within pt reach.
[2023-10-18] MEDS: ondansetron HCL 4 MG/2 ML VIAL IVPUSH ×2 (15:40→23:47)
[2023-10-18] MEDS: diphenhydrAMINE HCL 50 MG/ML VIAL 25 MG IVPUSH ×2 (16:00→23:46)
[2023-10-18 16:26] LABS: Glucose, Whole Blood 110 mg/dL (60-115)
[2023-10-18] MEDS: Labetalol HCL 100 MG/20 ML VIAL 10 MG IVPUSH (18:02)
[2023-10-18] MEDS: diphenhydrAMINE HCl 12.5 MG/5 ML LIQUID 25 MG PO (20:03)
[2023-10-18] MEDS: Calcium Carbonate 750 MG TAB.CHEW PO (20:07)
[2023-10-18 20:37] LABS: Glucose, Whole Blood 111 mg/dL (60-115)
[2023-10-19] VITALS: O2SAT 96
[2023-10-19] MEDS: 0.9 % Sodium Chloride Flush 3 ML SYRINGE IVFLUSH ×2 (00:30→09:07)
[2023-10-19 03:29] VITALS: BP 158/83; PULSE 76; RESP 20; TEMP 36.3
[2023-10-19 04:00] VITALS: O2SAT 96
[2023-10-19] MEDS: diphenhydrAMINE HCL 50 MG/ML VIAL 25 MG IVPUSH ×2 (05:25→11:22)
[2023-10-19] MEDS: oxyCODONE HCl Immed Release 5 MG TABLET 10 MG PO ×3 (05:25→14:58)
[2023-10-19 07:37] VITALS: BP 178/89; PULSE 75; RESP 20; TEMP 36.4; O2SAT 94
--- NOTE | 2023-10-19 07:44 | P.PNIM_ITS ---
Subjective Subjective Date of Service: 10/19/23 Interval History: Seen in follow up for hyperK, missed HD Interval history: Physical Exam 2 Vital Signs: Vital Signs: Last Vital Signs Temp 97.5 F 10/19/23 07:37 Pulse 75 10/19/23 07:37 Resp 20 10/19/23 07:37 BP 178/89 H 10/19/23 07:37 Pulse Ox 94 10/19/23 07:37 O2 Del Method Room Air 10/19/23 07:37 O2 Flow Rate 8 10/17/23 20:23 BMI result Body Mass Index 26.8 Objective Data Active Medications Acetaminophen (Acetaminophen 325 Mg Tablet) 650 mg PO Q6H PRN PRN Reason: Pain, Mild (Pain Scale 1-3), fever or headache Calcium Carbonate (Calcium Carbonate 750 Mg Tab.Chew) 750 mg PO Q4H PRN PRN Reason: Heartburn Last Admin: 10/18/23 20:07 Dose: 750 mg Documented By: BRENDAN Carvedilol (Carvedilol 12.5 Mg Tablet) 12.5 mg PO BID [facility]; Protocol Last Admin: 10/18/23 20:07 Dose: 12.5 mg Documented By: BRENDAN Diphenhydramine HCl (Diphenhydramine Hcl 12.5 Mg/5 Ml Liquid) 25 mg PO BEDTIME [facility] Last Admin: 10/18/23 20:03 Dose: 25 mg Documented By: BRENDAN Diphenhydramine HCl (Diphenhydramine Hcl 50 Mg/Ml Vial) 25 mg IVPUSH Q6H PRN PRN Reason: Itching Last Admin: 10/19/23 05:25 Dose: 25 mg Documented By: BRENDAN Glucose (Glucose Gel 15 Gm Gel..Gram.) 15 gm PO Q15M PRN; Protocol PRN Reason: per Hypoglycemia Standing Ord. Heparin Sodium (Porcine) (Heparin Sodium,Porcine 5,000 Unit/Ml Vial) 5,000 unit SUBCUT Q12H [facility] Last Admin: 10/18/23 19:47 Dose: Not Given Documented By: BRENDAN Non-Admin Reason: Patient Refused Hydralazine HCl (Hydralazine Hcl 50 Mg Tablet) 50 mg PO TID [facility]; Protocol Last Admin: 10/18/23 20:06 Dose: 50 mg Documented By: BRENDAN Dextrose (D10) 250 mls @ 750 mls/hr IV Q15M PRN PRN Reason: per Hypoglycemia Standing Ord. Dextrose (D10) 250 mls @ 750 mls/hr IV Q15M PRN; Protocol PRN Reason: per Hypoglycemia Standing Ord. Insulin Human Lispro (Insulin Lispro 100 Unit/Ml 3 Ml Vial) 0 unit SUBCUT QIDACHS [facility]; Protocol Last Admin: 10/18/23 23:35 Dose: Not Given Documented By: BRENDAN Non-Admin Reason: No Insulin Coverage Labetalol HCl (Labetalol Hcl 100 Mg/20 Ml Vial) 10 mg IVPUSH Q6H PRN PRN Reason: blood pressure >180/110 Last Admin: 10/18/23 18:02 Dose: 10 mg Documented By: MIKE Magnesium Hydroxide (Milk Of Magnesia 30 Ml Oral.Susp) 30 ml PO DAILY PRN PRN Reason: Constipation Melatonin (Melatonin 3 Mg Tablet) 6 mg PO BEDTIME PRN PRN Reason: Insomnia Metoclopramide HCl (Metoclopramide Hcl 10 Mg/2 Ml Vial) 5 mg IVPUSH Q6H PRN PRN Reason: Nausea and Vomiting Nifedipine (Nifedipine Er 60 Mg Tab.Er.24) 60 mg PO DAILY [facility]; Protocol Last Admin: 10/18/23 10:24 Dose: 60 mg Documented By: MIKE Ondansetron HCl (Ondansetron Hcl 4 Mg/2 Ml Vial) 4 mg IVPUSH Q8H PRN PRN Reason: Nausea and Vomiting Last Admin: 10/18/23 23:47 Dose: 4 mg Documented By: BRENDAN Oxycodone HCl (Oxycodone Hcl Immed Release 5 Mg Tablet) 10 mg PO Q4H PRN PRN Reason: Pain, Severe (Pain Scale 7-10) Last Admin: 10/19/23 05:25 Dose: 10 mg Documented By: BRENDAN Sodium Chloride (0.9 % Sodium Chloride Flush 3 Ml Syringe) 3 ml IVFLUSH [facility] Last Admin: 10/19/23 00:30 Dose: 3 ml Documented By: BRENDAN Torsemide (Torsemide 20 Mg Tablet) 40 mg PO BID [facility]; Protocol Last Admin: 10/18/23 20:09 Dose: Not Given Documented By: BRENDAN Non-Admin Reason: Patient Refused Labs 10/18/23 10:03 10/18/23 10:03 Labs: Laboratory Results - last 24 hr 10/18/23 10/18/23 10/18/23 10:03 11:10 16:17 MCV 94.3 MCH 29.4 MCHC 31.2 RDW 16.8 H Plt Count 144 L MPV 12.5 H Absolute Nucleated RBC 0.000 Nucleated RBC % (auto) 0.0 Anion Gap 17 Estim Creat Clear Calc 16.2 Estimated GFR 9 POC Glucose 122 H 110 Random Glucose 118 H Calcium 8.4 10/18/23 20:19 MCV MCH MCHC RDW Plt Count MPV Absolute Nucleated RBC Nucleated RBC % (auto) Anion Gap Estim Creat Clear Calc Estimated GFR POC Glucose 111 Random Glucose Calcium Microbiology Microbiology Results: Microbiology 10/17/23 18:28 Blood Culture - Preliminary Blood - Venous No growth after 24 hours. 10/17/23 18:27 Blood Culture - Preliminary Blood - Venous No growth after 24 hours. Assessment and Plan Plan 33 yo F with multiple medical issues including ESRD on HD (T, TH, S), DM s/p multiple amputations, diabetic retinopathy and blindness, chronic resp failure, HTN, HFrEF, chronic pain who presented to the hospita with foot pain and was found to have severe hyperK requiring emergent dialysis. 1. ESRD with acutehyperkalemia due to non-compliance -- she reports that she did not go to her scheduled dialysis this Sunday refusing labs this AM -- discussed with her of the importance of labs, she has agreed -- pending will d/w nephro on when next dialysis is needed 2. Poorly controlled HTN again, due to non-compliance continue baseline meds 3. Bilateral LE amputations / PVD seen by wound care -- no concerners for acute infection / XR without acute findings outpatient wound care f/u 4. DM sliding scale 5. HFrEF / chronic resp failure at baseline, continue meds Full Code DVT pptx -- heparin Possible d/c later today if labs okay and does not need repeat dialysis. Quality Stroke Does the patient have a stroke diagnosis?: No VTE Prior VTE?: No VTE Risk Level:: Medical - moderate - high VTE Device Contraindication: Treatment Not Indicated VTE Drug Contraindication: N/A - Med Ordered
[2023-10-19 07:56] LABS: Glucose, Whole Blood 70 mg/dL (60-115)
[2023-10-19] MEDS: carvediloL 12.5 MG TABLET PO (09:05)
[2023-10-19] MEDS: hydrALAZINE HCl 50 MG TABLET 100 MG PO ×2 (09:06→14:59)
[2023-10-19] MEDS: NIFEdipine ER 60 MG TAB.ER.24 PO (09:06)
--- NOTE | 2023-10-19 10:53 | MHC.CM.PN ---
EMR REVIEWED, PER HOSPITALIST PLAN TO TXFR PT TO S3, PT MAY NEED HD PRIOR TO DC AND PLAN REMAINS FOR PT TO RETURN HOME W/SISTER AND RESUMP OF OFFICE SERVICES REPRESENTATIVE/HOME O2 AND OUTPT HD AT [facility] ONCE MEDICALLY CLEARED, CM WILL CONT TO FOLLOW DC NEEDS.
[2023-10-19] MEDS: ondansetron HCL 4 MG/2 ML VIAL IVPUSH (11:22)
--- NOTE | 2023-10-19 14:12 | PM.DS ---
DS: Providers Provider Date of Service: 10/19/23 Date of admission: 10/17/23 20:27 Date of discharge: 10/19/23 Primary care physician: Nisha Gottlieb NP Admitting clinician: Rosemary Rollins Attending physician on admission: Alejandra Sewell Consults: 10/17/23 20:26 Consult to Nephrology Routine Consulting Provider: Fernando Siddiqi Reason for consultation: HD ; hyperkalemia 10/18/23 02:25 Consult to Wound Care Routine Reason for consultation: bilat chronic diabetic foot wounds Attending physician on discharge: [facility] Discharging clinician: Shelly Blancas DS: Diagnosis Discharge Diagnosis (1) Hypertension, uncontrolled: Status: Acute (2) ESRD (end stage renal disease): Status: Acute DS: Summary Hospital Course Hospital Course: HPI on admission by Rosemary Rollins PA-C on 10/16: 33-year-old female with a PMH significant for?ESRD on HD Sun/Sun/Sun, multiple hospitalizations due to noncompliance with hemodialysis, diabetic retinopathy with blindness, peripheral vascular disease (s/p bilat transmetatarsal amputation), poorly controlled hypertension due to noncompliance with medications, chronic respiratory failure on supplemental oxygen, HFrEF, mood disorder, chronic pain with opiate seeking behavior who presents to the ED for evaluation of left foot pain. Pt was just discharged 2 days prior on 10/14 after being admitted and treated for acute dyspnea due to volume overload in the setting of missed hemodialysis. During admission patient also underwent debridement of left foot and heel wounds in OR by Dr. Rajput. Per patient, she received dialysis on Sunday and was told she could wait until for her next dialysis appointment. Reports earlier today was being showered by her sister who was concerned after noticing the top of her left foot looked black. Reports called Dr. Rajput's office and was told to come to the ED for further evaluation. Has not yet established follow up appointment with wound care clinic. Pt complains of increasing bilateral foot pain that radiates up legs to lower back and both shoulders. No fever or chills. Denies CP of SOB. Labs were drawn and revealed severe hyperkalemia of 6.8. Nephrology was consulted and suggested patient being admitted to the hospital for emergent dialysis. In the ED pt was tachycardic up to 94 and hypertensive up 168/86. Labs were significant for chronic normocytic anemia 8.9/27.8, ESR 102, sodium 132, potassium 6.8, bicarb 15, BUN 88, creatinine 9.38, magnesium 3.1, alk-phos 161, initial troponin 43.1, and CRP 1.51. X-ray of right foot showed stable postoperative changes with no evidence for acute osteomyelitis. X-ray of left foot found postoperative changes and chronic changes compatible with neuropathic arthroplasty, but no radiographic findings to suggest acute osteomyelitis. EKG demonstrated normal sinus rhythm with RBBB and no evidence of hyperkalemic EKG changes. Pt was treated with Lokelma, calcium gluconate, albuterol, hydromorphone 1 mg p.o., IVF, and insulin 10 units. Pt will be admitted to the hospital for acute hyperkalemia and other electrolyte abnormalities requiring emergent dialysis. Hospital course: 33 year old female admitted to med[facility] due to MYNOR with hyperkalemia after missing HD sunday and required emergent dialysis on night of admission (sunday). Follows a TT but often misses HD appts. She has frequent admissions for the same. She did require multiple doses of IV antihypertensives but blood pressures improved following HD. Hydralazine increased to 100mg TID per nephrology and was continued on coreg 12.5mg BID and nifedipine 60mg daily and torsemide 40mg BID. Followed by nephology and received addl HD on morning of discharge. Creat improved to 5.37. She continues to complain of pain in the ble. Follows with general surgery and is requesting further amputation. Discussed with general surgery, in absence of infection, can follow up in the office to discuss further. Followed by wound RN while admitted recommending offloading, repositioning, cleansing with betadine and dressings with durafiber and ABD pad and gauze wrap to be changed every other day. She will be discharged home where she resides with her sister who asissted with case and also has [employer]STROPH[employer] PROFESSOR services. Did discuss barriers to care with patient given recurrent admissions due to HD but patient denies missing sessions (confirmed with grocery manager that she often misses session). Advised to present for HD as scheduled on sunday. Status at Discharge Functional status at discharge: wheelchair bound Overall status at discharge: patient is progressing back to baseline Time Attestation Discharge Coordination Time (in mins): 34 Quality: Safe Use of Opioids Does Pt have an Active Cancer Diagnosis on the Problem List?: No Quality: Stroke Does the patient have a stroke diagnosis?: No Physical Exam Vital Signs: Vital Signs: Last Vital Signs Temp 97.5 F 10/19/23 07:37 Pulse 75 10/19/23 07:37 Resp 20 10/19/23 07:37 BP 178/89 H 10/19/23 07:37 Pulse Ox 94 10/19/23 07:37 O2 Del Method Room Air 10/19/23 07:37 O2 Flow Rate 8 10/17/23 20:23 BMI result Body Mass Index 26.8 DS: Data Data Completed and Pending Completed studies during hospitalization [Text1]: Procedures Detachment at Left 2nd Toe, Complete, Open Approach (09/08/23) Detachment at Left 3rd Toe, Complete, Open Approach (09/08/23) Detachment at Left 4th Toe, Complete, Open Approach (09/08/23) Detachment at Right Foot, Partial 1st Ray, Open Approach (03/01/20) Detachment at Right Foot, Partial 2nd Ray, Open Approach (03/01/20) Detachment at Right Foot, Partial 3rd Ray, Open Approach (03/01/20) Detachment at Right Foot, Partial 4th Ray, Open Approach (03/01/20) Detachment at Right Foot, Partial 5th Ray, Open Approach (03/01/20) Drainage of Right Pleural Cavity, Percutaneous Approach (01/14/21) Excision of Left Foot Skin, External Approach (09/08/23) Excision of Right Foot Skin, External Approach (08/27/23) Excision of Stomach, Pylorus, Via Natural or Artificial Opening Endoscopic, Diagnostic (08/27/22) Fluoroscopy of Superior Vena Cava, Guidance (08/14/22) Insertion of Infusion Device into Right Atrium, Percutaneous Approach (08/14/22) Insertion of Infusion Device into Superior Vena Cava, Percutaneous Approach (01/14/21) Insertion of Infusion Device into Upper Vein, Percutaneous Approach (08/27/23) Insertion of Tunneled Vascular Access Device into Chest Subcutaneous Tissue and Fascia, Percutaneous Approach (08/14/22) Performance of Urinary Filtration, Intermittent, Less than 6 Hours Per Day (09/08/23) Removal of Infusion Device from Great Vessel, External Approach (01/14/21) Transfusion of Nonautologous Red Blood Cells into Peripheral Vein, Percutaneous Approach (04/22/22) Labs on day of discharge: Laboratory Results - last 24 hr 10/18/23 10/18/23 10/19/23 16:17 20:19 07:39 POC Glucose 110 111 70 Preliminary micro results at discharge 10/17/23 18:28 Blood Culture - Preliminary Blood - Venous No growth after 24 hours. 10/17/23 18:27 Blood Culture - Preliminary Blood - Venous No growth after 24 hours. Discharge Plan Discharge Anticipated Discharge Date/Time: 10/19/23 11:57 Patient Disposition: Home, Self-Care Discharge Diagnosis: ESRD requiring HD, hyperkalemia Referrals: Nisha Gottlieb NP [Primary Care Provider] - 1 Week Fernando Siddiqi MD [Physician] - 1 Week Discharge Medications: New hydralazine 50 mg Tablet 100 mg PO TID Qty: 90 2RF Protocol: Hold for SBP< HOLD for SBP < : 90 ondansetron 4 mg tablet,disintegrating 4 mg PO Q8H PRN (Reason: nausea and vomiting) Qty: 14 0RF oxycodone 5 mg tablet 5 mg PO Q6H PRN (Reason: pain, severe) Qty: 20 0RF Rx Instructions: Partial Fill upon patient request. Continued (DME) off loading boot Kit See Rx Instructions .Route Qty: 1 0RF Rx Instructions: As directed carvedilol 12.5 mg tablet 12.5 mg PO BID torsemide 20 mg tablet 40 mg PO BID Calcium Antacid 300 mg (750 mg) tablet,chewable 1 tab PO TIDWM nifedipine 60 mg tablet extended release 24hr 60 mg PO DAILY diphenhydramine HCl 12.5 mg/5 mL Elixir 25 mg PO BEDTIME Discontinued oxycodone 5 mg Tablet 5 mg PO Q4H PRN (Reason: Pain, Moderate(Pain Scale 4-6)) Qty: 20 0RF Rx Instructions: Partial Fill upon patient request. hydralazine 50 mg Tablet 50 mg PO TID Qty: 90 0RF Protocol: Hold for SBP< HOLD for SBP < : 90 Discharge Orders: Discharge Order (Routine); Ordered 10/19/23 Ordered By: Shelly Blancas Diet: Low salt diet Activity on Discharge: As tolerated Stand Alone Forms: Patient Portal Discharge page Print Language: Kiswahili Care Plan Goals: Continue HD as scheduled Sunday, , sunday. Do not skip session Health Concerns: ESRD on HD with dialysis noncompliance Uncontrolled HTN Hyperkalemia Plan of Treatment: ESRD on HD -continue HD on Sunday, , Sunday- do not miss sessions HTN -increase hydralazine to 100mg TID. Continue nifedipine and carvedilol Diabetic ulcers -not infected. Per general surgery, follow up in the office to discuss amputation (pt reports she is interested in amputation, but does not require this on inpatient basis in absence of infection) Assessment: See above, see discharge summary Discharge Date/Time: 10/19/23 16:51
[2023-10-19 14:22] VITALS: BP 144/84; PULSE 77; RESP 14; TEMP 36.3; O2SAT 98
== END 2023-10-19 16:51 | disposition home or self-care (01) | DRG 641 ==
LOC: HO.ED 20:29 → HO.EDOVER 20:39 → HO.IMC 23:48 → HO.S3 10-19 11:13
PROVIDERS: Family Medicine; Admitting Provider Student in an Organized Health Care Education/Training Program; Emergency Provider Emergency Medicine; PCP Nurse Practitioner Family; Visit Provider Physician Assistant
DX: E87.5 Hyperkalemia (principal); I13.2 Hypertensive heart and chronic kidney disease with heart failure and with stage 5 chronic kidney disease, or end stage renal disease; N17.9 Acute kidney failure, unspecified; I50.22 Chronic systolic (congestive) heart failure; I42.9 Cardiomyopathy, unspecified; J96.11 Chronic respiratory failure with hypoxia; L97.829 Non-pressure chronic ulcer of other part of left lower leg with unspecified severity; L97.819 Non-pressure chronic ulcer of other part of right lower leg with unspecified severity; F39 Unspecified mood [affective] disorder; E11.621 Type 2 diabetes mellitus with foot ulcer; E11.319 Type 2 diabetes mellitus with unspecified diabetic retinopathy without macular edema; D63.1 Anemia in chronic kidney disease; H54.8 Legal blindness, as defined in USA; G89.29 Other chronic pain; E11.51 Type 2 diabetes mellitus with diabetic peripheral angiopathy without gangrene; I25.10 Atherosclerotic heart disease of native coronary artery without angina pectoris; E11.42 Type 2 diabetes mellitus with diabetic polyneuropathy; Z91.148 Patient's other noncompliance with medication regimen for other reason; Z91.158 Patient's noncompliance with renal dialysis for other reason; Z79.899 Other long term (current) drug therapy
CPT/HCPCS: 36415; 73630; 80048; 80053; 82947; 83605; 83735; 84484; 85025; 85027; 85652; 86140; 87040; 90999; 93005; 99285; J0613; J1200; J1920; J2405

== ENCOUNTER → 2023-10-17 20:27 | Outpatient (BNV) | payer OTHER, SELFPAY | PROVIDERS: Admitting Provider Student in an Organized Health Care Education/Training Program; Emergency Provider Emergency Medicine; Visit Provider Student in an Organized Health Care Education/Training Program | DX: E87.5 Hyperkalemia (principal); N18.6 End stage renal disease; Z99.2 Dependence on renal dialysis; Z91.158 Patient's noncompliance with renal dialysis for other reason | CPT/HCPCS: 99223; 99231; 99239 ==

== ENCOUNTER 2023-10-25 16:56 | Inpatient (IN) | payer OTHER, SELFPAY ==
--- NOTE | ~2023-10-25 | MR_ITS ---
EXAMINATION: MRI FOOT WITHOUT CONTRAST, RIGHT CLINICAL INFORMATION: Concern for osteomyelitis. COMPARISON: Radiographs 10/25/2023. TECHNIQUE: MRI without contrast is performed on the right hindfoot. FINDINGS: Transmetatarsal amputation. There is mild soft tissue edema/trace fluid plantar to the base of the 1st metatarsal. Subtle irregularity along the osteotomy is present on the recent radiograph. However, there is no associated marrow edema or loss of T1 fatty marrow signal to indicate osteomyelitis. MR/MR foot RT wo con IMPRESSION: No evidence of osteomyelitis. Electronically signed by: David Horan MD 10/26/2023 01:49 PM EDT
--- NOTE | ~2023-10-25 | XR_ITS ---
EXAMINATION: XR CHEST 5:57 PM CLINICAL INFORMATION: Workup for infection COMPARISON: 10/08/2023 TECHNIQUE: AP portable view of the chest was obtained. FINDINGS: A right-sided central venous catheters unchanged in position, its tip in the right atrium. There are low volumes, but the lungs are clear. The cardiac silhouette is magnified by the AP position. XR/XR chest 1V IMPRESSION: Grossly clear and unchanged AP portable chest x-ray. Electronically signed by: Michael Valle MD 10/25/2023 07:05 PM EDT
--- NOTE | ~2023-10-25 | XR_ITS ---
EXAMINATION: XR FOOT 3 OR MORE VIEWS LEFT, XR FOOT 3 OR MORE VIEWS RIGHT CLINICAL INFORMATION: osteo concern COMPARISON: Right foot 10/17/23 Left foot 10/17/23 TECHNIQUE: 3 views of the right foot 3 views of the left foot FINDINGS: Right foot: There has been transmetatarsal amputation at the level of the proximal metatarsals. There is slight irregularity involving the plantar aspect of the remaining first metatarsal. Given differences in projection I suspect this is unchanged since 10/17/23. I cannot confirm stability when compared to 08/22/23. There is overlying soft tissue swelling. There is no opaque foreign body. There is no definite abnormal soft tissue gas. There is regional osteopenia. There are arterial calcifications. Left foot: There has been amputation at the level of the proximal third of the first metatarsal and the distal second third and fourth metatarsal. There is some deformity in the mid foot with possible ankylosis in the expected region of the tarsal navicular and cuneiforms. There is some divergence in the region of the first and second through fifth metatarsals similar to previous. Extensive smooth periosteal new bone associated with remaining second and third metatarsals. Chronic appearing thickening involving the distal fourth metatarsal. The amount of new bone formation associated with the remaining distal fourth metatarsal has increased. There is some soft tissue swelling. There is loss of the longitudinal arch in the remaining mid foot. XR/XR foot RT min 3V IMPRESSION: Extensive postoperative changes bilaterally. There are chronic deformities in the left mid foot. There is evolving periosteal reaction/ossification associated with the remaining distal left metatarsal. Irregular appearance to the plantar distal remaining right first metatarsal which is nonspecific. No definite retained foreign body or definite soft tissue gas Electronically signed by: Houston Mosley MD 10/25/2023 07:17 PM EDT
[2023-10-25 17:14] VITALS: BP 170/90; PULSE 110; O2SAT 90; BMI 28.5
--- NOTE | 2023-10-25 17:19 | ECG_ITS ---
Test Reason : ?sepsis Blood Pressure : / mmHG Vent. Rate : 109 BPM Atrial Rate : 109 BPM P-R Int : 144 ms QRS Dur : 146 ms QT Int : 402 ms P-R-T Axes : 052 -12 053 degrees QTc Int : 541 ms Sinus tachycardia Left atrial enlargement Right bundle branch block Abnormal ECG When compared with ECG of 17-OCT-2023 19:44, Nonspecific T wave abnormality has replaced inverted T waves in Anterolateral leads Referred By: Blair Henry Electronically Signed By:JULIÁN CANCINO
[2023-10-25 17:23] LABS: Glucose, Whole Blood 60 mg/dL (60-115)
[2023-10-25 17:33] LABS: MANUAL DIFF FLAG NO
[2023-10-25] MEDS: Dextrose 50 % 25 GM/50 ML SYRINGE IVPUSH (17:36)
[2023-10-25 17:38] LABS: Basophils Percent Auto 0.5 % (0-2); Eosinophils Percent Auto 0.3 % (0-4); Hematocrit 25.1 % (37.0-47.0); Hemoglobin 8.5 g/dl (12.0-16.0); Imm Gran Abs Auto 0.03 X10*3/uL (0.00-0.03); Imm Gran Pct Auto 0.5 % (0.0-0.4); Lymphocytes Absolute Auto 0.2 X10*3/uL (1.2-4.9); Lymphocytes Percent Auto 3.5 % (20-40); Mean Corpuscular HGB Conc 33.9 g/dl (31.0-35.0); Mean Corpuscular Volume 88.7 fL (80.0-98.0); Mean Platelet Volume 11.5 fL (9.4-12.3); Monocytes Absolute Auto 0.4 X10*3/uL (0.1-1.2); Monocytes Percent Auto 5.9 % (2-11); Neutrophils Absolute Auto 5.6 x10*3/uL (2.0-8.3); Neutrophils Percent Auto 89.3 % (45-73); Platelet Count 176 X10*3/uL (160-400); Red Blood Count 2.83 X10*6/uL (4.20-5.50); Red Cell Distribution Width 16.1 % (11.0-16.0); White Blood Count 6.2 X10*3/uL (4.8-10.8)
[2023-10-25 17:42] LABS: VBG Base Excess 5.6 mmol/L; VBG HCO3 26 mmol/L (22-26); VBG pCO2 25 mmHg; VBG pH 7.61 (7.32-7.43); VBG pO2 87 mmHg
[2023-10-25 17:44] LABS: Venous Blood Gas Refer to POC result
--- NOTE | 2023-10-25 17:58 | ED_ITS ---
HPI - General Adult General Chief complaint: General Medical Stated complaint: missed dialysis sunday, lethargic,n/v Time Seen by Provider: 10/25/23 17:14 History of Present Illness ED Provider: Carl CARRION narrative: 33-year-old female with past medical history of end-stage renal disease on dialysis Sunday, heart failure with reduced ejection fraction, diabetes, diabetic foot ulcers to bilateral feet status post bilateral toe amputations presenting for nausea, vomiting, fatigue. Patient completed her dialysis treatment today however presenting to ED due to diffuse body aches, vomiting and bilateral foot pain. She states that she has noticed a bad odor emitting from her feet. She endorses tactile fevers however denies chest pain, shortness of breath, stomach pain Related Data Home Medications ?Medication ?Instructions ?Recorded ?Confirmed carvedilol 12.5 mg tablet 12.5 mg PO BID 06/05/23 10/25/23 torsemide 20 mg tablet 40 mg PO BID 06/05/23 10/25/23 calcium carbonate (Calcium Antacid) 1 tab PO TIDWM 08/28/23 10/25/23 diphenhydramine HCl 12.5 mg/5 mL 25 mg PO BEDTIME 10/08/23 10/25/23 oral elixir nifedipine 60 mg tablet,extended 60 mg PO DAILY 10/08/23 10/25/23 release 24 hr Previous Rx's ?Medication ?Instructions ?Recorded off loading boot #1 ea 03/14/23 hydralazine 50 mg tablet 100 mg PO TID #90 tabs 10/19/23 ondansetron 4 mg disintegrating 4 mg PO Q8H PRN nausea and 10/19/23 tablet vomiting #14 tabs oxycodone 5 mg tablet 5 mg PO Q6H PRN pain, severe #20 10/19/23 tabs Allergies Allergy/AdvReac Type Severity Reaction Status Date / Time morphine [MORPHINE] Allergy Intermediate Itching Verified 10/25/23 17:15 azithromycin [From Zithromax] Allergy Hives Verified 10/25/23 17:15 gabapentin Allergy Facial Verified 10/25/23 17:15 Swelling tramadol Allergy Facial Verified 10/25/23 17:15 Swelling vancomycin Allergy Anaphylaxis Verified 10/25/23 17:15 Review of Systems 2 Review of Systems: Patient endorses nausea, vomiting, fatigue, weakness, bilateral foot pain, tactile fevers She denies chest pain, shortness of breath, abdominal pain Yes all other systems are reviewed and are negative [facility] Past Medical History [facility] Narrative: ESRD, DM Medical History Plantar ulcer of left foot Major depressive disorder, single episode, severe ESRD (end stage renal disease) Non-compliance with renal dialysis Hypertensive urgency MDD (major depressive disorder), recurrent episode MDD (major depressive disorder) Renal failure Foot ulcer CKD (chronic kidney disease) Hypertension Diabetic foot Hyperkalemia Vomiting Renal failure Hypertension Migraine Chronic pain ESRD on dialysis Non-compliance with renal dialysis Hypertension End-stage renal disease (ESRD) Gastroparesis Diabetic foot ulcer associated with type 2 diabetes mellitus Hypertensive emergency Diabetes ESRD needing dialysis Cardiomyopathy HFrEF (heart failure with reduced ejection fraction) Metabolic acidosis delivery delivered Anemia in chronic kidney disease (CKD) Anemia CKD (chronic kidney disease) Headache, migraine Abnormal finding on echocardiogram Elevated troponin Chest pain Acute worsening of stage 3 chronic kidney disease Generalized edema Sepsis Cellulitis Pleural effusion CHF (congestive heart failure) (~06/07/22) Tachycardia Atypical chest pain Bone infection PAD (peripheral artery disease) Severe anemia Cellulitis and abscess of foot DM foot ulcer Osteomyelitis Asthma Depression with anxiety Diabetic retinopathy Type 2 diabetes mellitus with hyperglycemia, with long-term current use of insulin Blind right eye Diabetes Back pain Surgical History Tubal ligation status Previous section Hx laparoscopic cholecystectomy Hx of surgical procedure (~09/11/23) 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 Family History Family History Mother Coronary artery disease Myocardial infarction Stroke Diabetes mellitus Father Myocardial infarction Social History Social History Household Members: Family Household Members Other:: sister Housing: Apartment Do you presently have visiting nurse or other home services: No Unable to assess alcohol history related to: Unknown Alcohol intake: never 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 Patient Tobacco Use Status: Never used Tobacco Smoked in Last 30 Days: No e-Cigarette/Vaping Use: Never Used Second Hand Smoke Exposure: No Use of substances other than those prescribed or required for medical reasons: No Advance Directives: Yes Advance Directives on File: Yes Advance Directives Date on File: 09/04/23 Do you have a plan to hurt others: No Plan Patient : No service: No Current occupational status: unemployed and disabled Gender identity: Female Physical Exam ED Vital Signs: Vital Signs - 24 hr 10/25/23 19:00 Temperature 101.0 F H Pulse Rate 94 Respiratory Rate 15 Blood Pressure 180/86 H Pulse Oximetry 100 Oxygen Delivery Method Room Air BMI result Body Mass Index 28.5 Warmth to bilateral lower extremities, scant drainage from amputation sites on bilateral feet with malodor Lungs clear to auscultation bilaterally, normal S1-S2 tachycardic Abdomen is soft nontender nondistended Course Reevaluation(s) Reevaluation #1: I am concerned for sepsis and have given patient broad-spectrum antibiotic. However given her underlying ESRD given her 30CC/kg of fluid is not ideal and patient is currently hypertensive Time: 17:59 Medications Administered Generic Name Dose Route Start Last Admin Trade Name Freq PRN Reason Stop Dose Admin Carvedilol 12.5 mg 10/25/23 22:10 10/25/23 22:40 Carvedilol 12.5 Mg Tablet PO Not Given BID [facility] Protocol Diphenhydramine HCl 25 mg 10/25/23 22:10 10/25/23 22:40 Diphenhydramine Hcl 12.5 Mg/5 Ml Liquid PO Not Given BEDTIME [facility] Heparin Sodium (Porcine) 5,000 unit 10/25/23 19:45 10/25/23 20:46 Heparin Sodium,Porcine 5,000 Unit/Ml Vial SUBCUT Not Given Q12H VASILE Hydralazine HCl 100 mg 10/25/23 22:10 10/25/23 22:40 Hydralazine Hcl 50 Mg Tablet PO Not Given TID [facility] Protocol Piperacillin Sod/Tazobactam 50 mls @ 100 mls/hr 10/26/23 00:00 10/26/23 00:31 Sod 2.25 gm/ Sodium Chloride IV 100 mls/hr Q6H VASILE Administration Sodium Chloride 3 ml 10/26/23 00:00 10/26/23 00:24 0.9 % Sodium Chloride Flush 3 Ml Syringe IVFLUSH Not Given QSHIFT VASILE Torsemide 40 mg 10/25/23 22:10 10/25/23 22:40 Torsemide 20 Mg Tablet PO Not Given BID [facility] Protocol Discontinued Medications Generic Name Dose Route Start Last Admin Trade Name Brandon PRN Reason Stop Dose Admin Dextrose 25 gm 10/25/23 17:20 10/25/23 18:02 Dextrose 25 % 2.5 Gm/10 Ml Syringe IV 10/25/23 17:21 Not Given ONCE ONE Dextrose 25 gm 10/25/23 17:45 10/25/23 17:36 Dextrose 50 % 25 Gm/50 Ml Syringe IVPUSH 10/25/23 17:46 25 gm ONCE ONE Administration Piperacillin Sod/Tazobactam 50 mls @ 100 mls/hr 10/25/23 17:20 10/25/23 20:20 Sod 2.25 gm/ Sodium Chloride IV 10/25/23 17:49 Infused ONCE ONE Infusion Linezolid 600 mg in 300 mls @ 300 mls/hr 10/25/23 17:44 10/25/23 21:30 Zyvox/D5w IV 10/25/23 18:43 Infused ONCE ONE Infusion Labetalol HCl 20 mg 10/25/23 23:17 10/26/23 00:21 Labetalol Hcl 100 Mg/20 Ml Vial IVPUSH 10/25/23 23:18 20 mg ONCE ONE Administration Medical Decision Making Medical Decision Making [facility] Narrative: This is an unhealthy 33-year-old female presenting for nausea, vomiting, fatigue with concerns for sepsis with the source likely being her feet. She is febrile, tachycardic and appears unwell I am also considering gastroenteritis, flu, COVID, osteomyelitis, DKA I ordered labs, imaging and antibiotics for the patient Given her underlying ESRD and her being hypertensive I do not feel that 30 cc/kg of fluids was appropriate for her I spoke with hospitalist palpation and patient was accepted for admission Differential Diagnosis Differential Diagnoses: The differential diagnosis associated with the presentation includes Sepsis, gastroenteritis, flu, COVID, osteomyelitis, DKA Consult Healthcare Provider Management of the patient was discussed with: Hospitalist Dr. Sewell accepted patient for admission Lab Data [facility] Lab Attestation statement: I reviewed the patient's lab results. Elevated lactate, alkalotic pH 10/25/23 17:27 10/25/23 17:27 Labs: Lab Results 10/25/23 10/25/23 10/25/23 Range/Units 17:19 17:27 17:34 WBC 6.2 (4.8-10.8) X10*3/uL RBC 2.83 L (4.20-5.50) X10*6/uL Hgb 8.5 L (12.0-16.0) g/dl Hct 25.1 L (37.0-47.0) % MCV 88.7 (80.0-98.0) fL MCH 30.0 (27.0-33.0) pg MCHC 33.9 (31.0-35.0) g/dl RDW 16.1 H (11.0-16.0) % Plt Count 176 (160-400) X10*3/uL MPV 11.5 (9.4-12.3) fL Immature Gran % (Auto) 0.5 H (0.0-0.4) % Neut % (Auto) 89.3 H (45-73) % Lymph % (Auto) 3.5 L (20-40) % Barrow % (Auto) 5.9 (2-11) % Eos % (Auto) 0.3 (0-4) % Baso % (Auto) 0.5 (0-2) % Lymph # (Auto) 0.2 L (1.2-4.9) X10*3/uL Barrow # (Auto) 0.4 (0.1-1.2) X10*3/uL Eos # (Auto) 0.0 (0.0-0.4) X10*3/uL Baso # (Auto) 0.0 (0.0-0.2) X10*3/uL Abs Immat Gran (auto) 0.03 (0.00-0.03) X10*3/uL Absolute Neuts (auto) 5.6 (2.0-8.3) x10*3/uL Absolute Nucleated RBC 0.000 (0.0-0.012) X10*3/uL Nucleated RBC % (auto) 0.0 (0.0-0.2) /100WBC VBG pH 7.61 H* (7.32-7.43) VBG pCO2 25 mmHg VBG pO2 87 mmHg VBG HCO3 26 (22-26) mmol/L VBG O2 Saturation 99.0 % VBG Base Excess 5.6 mmol/L Sodium 137 (135-145) mmol/L Potassium 4.1 (3.3-5.1) mmol/L Chloride 98 (96-108) mmol/L Carbon Dioxide 23 (22-29) mmol/L Anion Gap 20 (12-20) BUN 36 H (9-16) mg/dL Creatinine 5.62 H* (0.5-1.4) mg/dL Estim Creat Clear Calc 14.9 Estimated GFR 9 POC Glucose 60 (60-115) mg/dL Random Glucose 65 (60-115) mg/dL Lactic Acid 3.2 H* (0.5-2.0) mmol/L Calcium 9.1 D (8.4-10.2) mg/dL Magnesium 2.2 (1.6-2.6) mg/dL Total Bilirubin 1.8 H (0.0-1.0) mg/dL AST 34 H (5-31) U/L ALT 19 (0-31) U/L Alkaline Phosphatase 204 H (39-117) U/L Troponin I High Sens 21.5 H D (<3.5-17.0) ng/L Total Protein 8.6 H (6.5-8.0) g/dL Albumin 3.6 (3.5-5.0) g/dL Lipase 13 (8-78) U/L 10/25/23 Range/Units 18:59 WBC (4.8-10.8) X10*3/uL RBC (4.20-5.50) X10*6/uL Hgb (12.0-16.0) g/dl Hct (37.0-47.0) % MCV (80.0-98.0) fL MCH (27.0-33.0) pg MCHC (31.0-35.0) g/dl RDW (11.0-16.0) % Plt Count (160-400) X10*3/uL MPV (9.4-12.3) fL Immature Gran % (Auto) (0.0-0.4) % Neut % (Auto) (45-73) % Lymph % (Auto) (20-40) % Barrow % (Auto) (2-11) % Eos % (Auto) (0-4) % Baso % (Auto) (0-2) % Lymph # (Auto) (1.2-4.9) X10*3/uL Barrow # (Auto) (0.1-1.2) X10*3/uL Eos # (Auto) (0.0-0.4) X10*3/uL Baso # (Auto) (0.0-0.2) X10*3/uL Abs Immat Gran (auto) (0.00-0.03) X10*3/uL Absolute Neuts (auto) (2.0-8.3) x10*3/uL Absolute Nucleated RBC (0.0-0.012) X10*3/uL Nucleated RBC % (auto) (0.0-0.2) /100WBC VBG pH (7.32-7.43) VBG pCO2 mmHg VBG pO2 mmHg VBG HCO3 (22-26) mmol/L VBG O2 Saturation % VBG Base Excess mmol/L Sodium (135-145) mmol/L Potassium (3.3-5.1) mmol/L Chloride (96-108) mmol/L Carbon Dioxide (22-29) mmol/L Anion Gap (12-20) BUN (9-16) mg/dL Creatinine (0.5-1.4) mg/dL Estim Creat Clear Calc Estimated GFR POC Glucose 103 (60-115) mg/dL Random Glucose (60-115) mg/dL Lactic Acid (0.5-2.0) mmol/L Calcium (8.4-10.2) mg/dL Magnesium (1.6-2.6) mg/dL Total Bilirubin (0.0-1.0) mg/dL AST (5-31) U/L ALT (0-31) U/L Alkaline Phosphatase (39-117) U/L Troponin I High Sens (<3.5-17.0) ng/L Total Protein (6.5-8.0) g/dL Albumin (3.5-5.0) g/dL Lipase (8-78) U/L Independent Interpretation I performed an independent interpretation of an: EKG and Plain X-Ray Interpretation: Tachycardic on EKG with no ischemic changes appreciated Hazy appearing left lung Radiology Impression Discussion of test interpretation with radiology: I have reviewed the radiologist's reading. Radiologist Impression: Chest x-ray impression is negative for infectious process Discharge Plan Discharge Clinical Impression: Sepsis, Nausea & vomiting Patient Disposition: Admitted As Inpatient
[2023-10-25 18:00] LABS: Lactic Acid 3.2 mmol/L (0.5-2.0)
[2023-10-25 18:02] LABS: Troponin-I High Sensitivity 21.5 ng/L (<3.5-17.0)
[2023-10-25 18:05] LABS: Alanine Aminotransferase 19 U/L (0-31); Albumin Level 3.6 g/dL (3.5-5.0); Alkaline Phosphatase 204 U/L (39-117); Anion Gap 20 (12-20); Aspartate Amino Transferase 34 U/L (5-31); Bilirubin Total 1.8 mg/dL (0.0-1.0); Blood Urea Nitrogen 36 mg/dL (9-16); Calcium 9.1 mg/dL (8.4-10.2); Carbon Dioxide 23 mmol/L (22-29); Chloride 98 mmol/L (96-108); Creatinine Clr Calc Pharmacy 14.9; Estimated Glomerular Filt Rate 9; Glucose Random 65 mg/dL (60-115); Lipase 13 U/L (8-78); Magnesium 2.2 mg/dL (1.6-2.6); Potassium 4.1 mmol/L (3.3-5.1); Sodium 137 mmol/L (135-145); Total Protein 8.6 g/dL (6.5-8.0)
[2023-10-25] MEDS: Piperacillin Sodium/Tazobactam 2.25 GM in 0.9 % Sodium Chloride 50 ML IV (18:27)
--- NOTE | 2023-10-25 18:56 | PC.NURSE ---
patient did refuse her second set of blood cultures and MD is aware
[2023-10-25 19:00] VITALS: BP 180/86; PULSE 94; RESP 15; TEMP 38.3; O2SAT 100
[2023-10-25 19:05] LABS: Glucose, Whole Blood 103 mg/dL (60-115)
[2023-10-25 19:31] LABS: Reflex Lactate? Lactic Acid Added
--- NOTE | 2023-10-25 19:58 | P.HPHOSP_ITS ---
History of Present Illness Date of Service: 10/25/23 Attending physician on admission: Alejandra Sewell Chief Complaint: Missed dialysis Pt is a 33-year-old female with a PMH significant for?ESRD on HD (refuses to go on Saturdays), multiple hospitalizations due to noncompliance with hemodialysis, diabetic retinopathy with blindness, peripheral vascular disease (s/p bilat transmetatarsal amputation), poorly controlled hypertension due to noncompliance with medications, chronic respiratory failure on supplemental oxygen, HFrEF, mood disorder, and chronic pain with opiate seeking behavior who presents to the ED with nausea, vomiting, and abdominal pain x4 days. Patient states she has been unable to tolerate p.o. during this time. No diarrhea. Also complains of worsening chronic foot pain secondary to chronic diabetic foot wounds. Pain radiates up to her back and neck. Chronic foot wounds on right foot has been having foul-smelling discharge x4 days. Subjective fever and chills at home. Chronic SOB at baseline. No chest pain/pressure, palpitations. Patient was last admitted to the hospital 8 days prior on 10/16-10/18 where she was treated for electrolyte abnormalities secondary to missing dialysis. This is the patient's 14th admission to the hospital this year. In the ED pt was febrile up to 101.0, tachycardic up to 94, and hypertensive up to 180/86. Labs were significant for stable anemia of 8.5/25.1, BUN 36, creatinine 5.62, lactic acid 3.2, total bilirubin 1.8, AST 34, alk-phos 204, and initial troponin 21.5. CXR showed grossly clear and unchanged CXR. X-ray of feet showing extensive postoperative changes bilaterally, though with no x-ray evidence of acute osteomyelitis. EKG demonstrated sinus tachycardia of 109 with RBBB and no significant ST elevations or depressions. Pt was treated with linezolid and Zosyn. Pt will be admitted to the hospital for treatment and further evaluation of acute cellulitis secondary to chronic diabetic foot ulcers with sepsis. Review of Systems 2 Review of Systems: Bilateral lower extremity pain Foul-smelling and purulent discharge from right foot chronic diabetic ulcers Subjective fever and chills Nausea, vomiting, abdominal pain PMFSH Medical History Plantar ulcer of left foot Major depressive disorder, single episode, severe ESRD (end stage renal disease) Non-compliance with renal dialysis Hypertensive urgency MDD (major depressive disorder), recurrent episode MDD (major depressive disorder) Renal failure Foot ulcer CKD (chronic kidney disease) Hypertension Diabetic foot Hyperkalemia Vomiting Renal failure Hypertension Migraine Chronic pain ESRD on dialysis Non-compliance with renal dialysis Hypertension End-stage renal disease (ESRD) Gastroparesis Diabetic foot ulcer associated with type 2 diabetes mellitus Hypertensive emergency Diabetes ESRD needing dialysis Cardiomyopathy HFrEF (heart failure with reduced ejection fraction) Metabolic acidosis delivery delivered Anemia in chronic kidney disease (CKD) Anemia CKD (chronic kidney disease) Headache, migraine Abnormal finding on echocardiogram Elevated troponin Chest pain Acute worsening of stage 3 chronic kidney disease Generalized edema Sepsis Cellulitis Pleural effusion CHF (congestive heart failure) (~06/07/22) Tachycardia Atypical chest pain Bone infection PAD (peripheral artery disease) Severe anemia Cellulitis and abscess of foot DM foot ulcer Osteomyelitis Asthma Depression with anxiety Diabetic retinopathy Type 2 diabetes mellitus with hyperglycemia, with long-term current use of insulin Blind right eye Diabetes Back pain Family History Mother Coronary artery disease Myocardial infarction Stroke Diabetes mellitus Father Myocardial infarction Surgical History Tubal ligation status Previous section Hx laparoscopic cholecystectomy Hx of surgical procedure (~09/11/23) 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 Social History Household Members: Family Household Members Other:: sister Housing: Apartment Do you presently have visiting nurse or other home services: No Unable to assess alcohol history related to: Unknown Alcohol intake: never 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 Patient Tobacco Use Status: Never used Tobacco e-Cigarette/Vaping Use: Never Used Second Hand Smoke Exposure: No Advance Directives: Yes Advance Directives on File: Yes Advance Directives Date on File: 09/04/23 service: No Current occupational status: unemployed and disabled Gender identity: Female Meds Allergies Allergy/AdvReac Type Severity Reaction Status Date / Time morphine [MORPHINE] Allergy Intermediate Itching Verified 10/25/23 17:15 azithromycin [From Zithromax] Allergy Hives Verified 10/25/23 17:15 gabapentin Allergy Facial Verified 10/25/23 17:15 Swelling tramadol Allergy Facial Verified 10/25/23 17:15 Swelling vancomycin Allergy Anaphylaxis Verified 10/25/23 17:15 Active Medications: Current Medications Acetaminophen (Acetaminophen 325 Mg Tablet) 650 mg PO Q6H PRN PRN Reason: Pain, Mild (Pain Scale 1-3), fever or headache Calcium Carbonate (Calcium Carbonate 750 Mg Tab.Chew) 750 mg PO Q4H PRN PRN Reason: Heartburn Heparin Sodium (Porcine) (Heparin Sodium,Porcine 5,000 Unit/Ml Vial) 5,000 unit SUBCUT Q12H VASILE Dextrose (D10) 250 mls @ 750 mls/hr IV Q15M PRN PRN Reason: per Hypoglycemia Standing Ord. Piperacillin Sod/Tazobactam (Sod 2.25 gm/ Sodium Chloride) 50 mls @ 100 mls/hr IV Q6H VASILE Linezolid (Zyvox/D5w) 600 mg in 300 mls @ 300 mls/hr IV Q12H VASILE Magnesium Hydroxide (Milk Of Magnesia 30 Ml Oral.Susp) 30 ml PO DAILY PRN PRN Reason: Constipation Melatonin (Melatonin 3 Mg Tablet) 6 mg PO BEDTIME PRN PRN Reason: Insomnia Ondansetron HCl (Ondansetron Hcl 4 Mg/2 Ml Vial) 4 mg IVPUSH Q8H PRN PRN Reason: Nausea and Vomiting Sodium Chloride (0.9 % Sodium Chloride Flush 3 Ml Syringe) 3 ml IVFLUSH QSHIFT [facility] Home Medications ?Medication ?Instructions ?Recorded ?Confirmed ?Last Taken ?Type carvedilol 12.5 mg tablet 12.5 mg PO BID 06/05/23 10/17/23 10/17/23 History torsemide 20 mg tablet 40 mg PO BID 06/05/23 10/17/23 10/17/23 History calcium carbonate (Calcium Antacid) 1 tab PO TIDWM 08/28/23 10/17/23 10/17/23 History diphenhydramine HCl 12.5 mg/5 mL 25 mg PO BEDTIME 10/08/23 10/17/23 10/17/23 History oral elixir nifedipine 60 mg tablet,extended 60 mg PO DAILY 10/08/23 10/17/23 10/17/23 History release 24 hr cholecalciferol (vitamin D3) 50 50 mcg PO DAILY 10/25/23 Unknown History mcg (2,000 unit) capsule Physical Exam 2 Vital Signs and Narrative: Vital Signs: Last Vital Signs Temp 101.0 F H 10/25/23 19:00 Pulse 94 10/25/23 19:00 Resp 15 10/25/23 19:00 BP 180/86 H 10/25/23 19:00 Pulse Ox 100 10/25/23 19:00 O2 Del Method Room Air 10/25/23 19:00 BMI result Body Mass Index 28.5 General: AOx3, in no acute distress Resp: CTA bilaterally CVS: S1, S2, regulr rhythym, tachycardic GI: +BS, NT, no distention Skin: Warm, dry Neuro: Cranial nerves II-XII grossly intact bilaterally. Motor grossly intact bilaterally Extremities: Chronic nonhealing wounds and postoperative changes bilaterally. Wound on right heel with foul-smelling and purulent discharge. As pictured below. Results Labs 10/25/23 17:27 10/25/23 17:27 Labs: Laboratory Results - last 24 hr 10/25/23 10/25/23 10/25/23 17:19 17:27 17:34 MCV 88.7 MCH 30.0 MCHC 33.9 RDW 16.1 H Plt Count 176 MPV 11.5 Immature Gran % (Auto) 0.5 H Neut % (Auto) 89.3 H Lymph % (Auto) 3.5 L Oliver % (Auto) 5.9 Eos % (Auto) 0.3 Baso % (Auto) 0.5 Lymph # (Auto) 0.2 L Oliver # (Auto) 0.4 Eos # (Auto) 0.0 Baso # (Auto) 0.0 Abs Immat Gran (auto) 0.03 Absolute Neuts (auto) 5.6 Absolute Nucleated RBC 0.000 Nucleated RBC % (auto) 0.0 VBG pH 7.61 H* VBG pCO2 25 VBG pO2 87 VBG HCO3 26 VBG O2 Saturation 99.0 VBG Base Excess 5.6 Anion Gap 20 Estim Creat Clear Calc 14.9 Estimated GFR 9 POC Glucose 60 Random Glucose 65 Lactic Acid 3.2 H* Calcium 9.1 D Magnesium 2.2 Total Bilirubin 1.8 H AST 34 H ALT 19 Alkaline Phosphatase 204 H Troponin I High Sens 21.5 H D Total Protein 8.6 H Albumin 3.6 Lipase 13 10/25/23 18:59 MCV MCH MCHC RDW Plt Count MPV Immature Gran % (Auto) Neut % (Auto) Lymph % (Auto) Oliver % (Auto) Eos % (Auto) Baso % (Auto) Lymph # (Auto) Oliver # (Auto) Eos # (Auto) Baso # (Auto) Abs Immat Gran (auto) Absolute Neuts (auto) Absolute Nucleated RBC Nucleated RBC % (auto) VBG pH VBG pCO2 VBG pO2 VBG HCO3 VBG O2 Saturation VBG Base Excess Anion Gap Estim Creat Clear Calc Estimated GFR POC Glucose 103 Random Glucose Lactic Acid Calcium Magnesium Total Bilirubin AST ALT Alkaline Phosphatase Troponin I High Sens Total Protein Albumin Lipase Imaging Radiologist's Impressions: Impressions Chest X-Ray 10/25/23 17:19 IMPRESSION: Grossly clear and unchanged AP portable chest x-ray. Electronically signed by: Michael Valle MD 10/25/2023 07:05 PM EDT Foot X-Ray 10/25/23 17:45 IMPRESSION: Extensive postoperative changes bilaterally. There are chronic deformities in the left mid foot. There is evolving periosteal reaction/ossification associated with the remaining distal left metatarsal. Irregular appearance to the plantar distal remaining right first metatarsal which is nonspecific. No definite retained foreign body or definite soft tissue gas Electronically signed by: Houston Mosley MD 10/25/2023 07:17 PM EDT Foot X-Ray 10/25/23 17:45 IMPRESSION: Extensive postoperative changes bilaterally. There are chronic deformities in the left mid foot. There is evolving periosteal reaction/ossification associated with the remaining distal left metatarsal. Irregular appearance to the plantar distal remaining right first metatarsal which is nonspecific. No definite retained foreign body or definite soft tissue gas Electronically signed by: Houston Mosley MD 10/25/2023 07:17 PM EDT Assessment and Plan (1) Diabetic foot infection: Status: Acute Plan Pt is a 33-year-old female with a PMH significant for?ESRD on HD Sun/Sun (refuses to go on Saturdays), multiple hospitalizations due to noncompliance with hemodialysis, diabetic retinopathy with blindness, peripheral vascular disease (s/p bilat transmetatarsal amputation), poorly controlled hypertension due to noncompliance with medications, chronic respiratory failure on supplemental oxygen, HFrEF, mood disorder, and chronic pain with opiate seeking behavior who presents to the ED with nausea, vomiting, and abdominal pain x4 days. Pt will be admitted to the hospital for treatment and further evaluation of acute cellulitis secondary to chronic diabetic foot ulcers with sepsis. Right foot diabetic foot infection with sepsis Concerning for osteo Pt meets sepsis criteria: Fever, tachycardia; lactic acid 3.2 with repeat 1.1 Patient was not given IVF due to hx of ESRD and CHF Started on broad-spectrum antibiotics in the ED Will treat with Zosyn and linezolid, started 10/25/2023 MRI of right foot wo contrast General surgery consult Follow cultures Chronic N/V/abd pain Has been ongoing for many years Unclear etiology, extensive negative workup in the past Antiemetics ESRD on HD Sun//Sun Pt refuses to go to HD on Sat Missed dialysis on Sunday, but went to earlier today BMP without significant electrolyte abnormalities Nephrology consult Follow BMP Hypertension Poorly controlled due to noncompliance Resume p.o. hydralazine, 12.5mg carvediolol Follow bp Elevated troponin Likely chronic troponin leak vs uncontrolled htn No chest pain, ekg without acute ischemic changes Chronic pain disorder Allergy to morphine, tramadol, gabapentin P.O. oxycodone [id number] type 2 diabetes POC glucose, diabetic diet Humalog on sliding scale HFrEF with chronic hypoxemic respiratory failure Not in acute exacerbation, no evidence of volume overload Resume HD as above for management of volume Continue p.o. diuretics Continue 4 L supplemental O2, home dose CAD/Cardiomyopathy Continue ASA, beta-mohamud Isosorbide mononitrate recently discontinued due to patient noncompliance Diabetic polyneuropathy Continue home p.o. pain medications Patient with long history of IV Dilaudid-seeking behavior Full Code Attending:?Dr. Sewell DVT Prophylaxis: Lovenox Given patient's history of noncompliance and susceptibility to quick decompensation due to multiple comorbidities, patient require hospitalization for at least 2 over nights for treatment and further evaluation of right chronic diabetic foot ulcer infection concerning for osteomyelitis. Patient will need administration of IV antibiotics, close monitoring of labs, and specialist consultation with Nephrology. Quality Stroke Does the patient have a stroke diagnosis?: No VTE Prior VTE?: No VTE Risk Level:: Medical - moderate - high VTE Device Contraindication: Treatment Not Indicated VTE Drug Contraindication: N/A - Med Ordered
--- NOTE | 2023-10-25 19:59 | MHC.EDTECH ---
Patient refused lab work . DR schmidt
[2023-10-25] MEDS: Linezolid/D5W 600 MG/300 ML PIGGYBACK 300 MG IV (20:22)
--- NOTE | 2023-10-25 20:40 | PC.NURSE ---
Provider made aware of patients elevated blood pressure, no new orders.
[2023-10-25 20:43] LABS: ~Lactic Acid-LAB USE ONLY 1.1 mmol/L (0.5-2.0)
[2023-10-25 20:46] LABS: Beta-Hydroxybutyrate 0.58 mmol/L (0.02-0.27)
--- NOTE | 2023-10-25 20:46 | PC.NURSE ---
patient refused heparin shot, education provided
[2023-10-25 21:03] LABS: Influenza A PCR NEGATIVE (Negative); Influenza B PCR NEGATIVE (Negative); Resp Syncy Virus RNA Qual PCR NEGATIVE (Negative); SARS COV2 PCR INHOUSE NEGATIVE (Negative)
[2023-10-25 21:07] LABS: Procalcitonin 0.55 ng/mL
--- NOTE | 2023-10-25 21:29 | PHA.MEDREC ---
Addendum entered by Leila Ellison RPh 10/25/23 21:45: med rec reviewed by [facility] Original Note: Pharmacy Consult ? Medication Reconciliation Pharmacy has completed the medication reconciliation. Went into patient room and she was not feeling great. She did confirm her Discharge pakcet from 10/19/23 should be up to date. She was not able to tell me when she last took her medications tho due to her state.
[2023-10-25 21:42] VITALS: BP 195/109; PULSE 85; RESP 17; TEMP 37.2; O2SAT 100
--- NOTE | 2023-10-25 21:45 | PC.NURSE ---
Report called to overflow nurse Yamile BETH
--- NOTE | 2023-10-25 22:11 | PC.NURSE ---
POC Glucose 98 at 22:13 on 10/25/2023.
[2023-10-25 23:20] VITALS: BP 187/89; PULSE 85; RESP 18; TEMP 36.3; O2SAT 95
--- NOTE | 2023-10-25 23:29 | PC.NURSE ---
No labetalol 20mg IV available in Overflow xis. Pharmacy unavailable. Contacted Main ED to have medication brought to Overflow for administration. Will administer medication upon arrival. Provider (Dr. Sewell) aware. Pt refused ordered oral medications despite explaining rationale for medication. Pt is hypertensive, oxygen flowing via nasal cannula at 2 liters/minute, dialysis patient, noncompliant. Respirations even. Care ongoing.
[2023-10-26] VITALS (7 sets, daily range): BP systolic 106–182; BP diastolic 58–91; PULSE 67–80; RESP 16–20; TEMP 36.1–36.4; O2SAT 94–99; BMI 28.5
[2023-10-26] MEDS: Labetalol HCL 100 MG/20 ML VIAL 20 MG IVPUSH (00:21)
[2023-10-26] MEDS: Piperacillin Sodium/Tazobactam 2.25 GM in 0.9 % Sodium Chloride 50 ML IV ×4 (00:31→18:09)
--- NOTE | 2023-10-26 00:34 | PC.NURSE ---
assumed care of pt at 1900. pt resting in hospital bed comfortably, respirations even and unlabored. lebatalol iv given per mar, shantasyn abx running now via left upper arm ivvvvvvvvvvvvvvvvvvvv. callvvvvvvvvvvvvvvvvvvvvvvvvvvv moore withinvvvvvvvvvvvvvvvvvvvvvvvvvvv reach, plan of care ongoing.
--- NOTE | 2023-10-26 00:36 | PC.NURSE ---
assumed care of pt at 00:15. pt resting in hospital bed comfortably, respirations even and unlabored. lebatalol iv given per apr, zosyn abx running now via left upper arm iv. call moore within reach, plan of care ongoing.
[2023-10-26] MEDS: oxyCODONE HCl Immed Release 5 MG TABLET PO ×2 (03:03→10:32)
--- NOTE | 2023-10-26 05:18 | PC.NURSE ---
pt refused morning labs.
[2023-10-26] MEDS: ondansetron HCL 4 MG/2 ML VIAL IVPUSH ×2 (08:36→12:22)
--- NOTE | 2023-10-26 09:00 | PM.CNGS ---
History of Present Illness Consult details Consult date: 10/26/23 Narrative: 33-year-old female with multiple medical problems including end-stage renal disease, on hemodialysis, diabetes, cerebrovascular disease, blindness, with a history of bilateral transmetatarsal amputations, admitted because of nausea, vomiting and abdominal pain. However, this morning, her main complaint was he has this pain on the left foot all the way to the ankle. She had amputations of 3 remaining toes on this left foot last month. She had debridement of the plantar ulcer about 3 weeks ago. She is known to be very poorly compliant. She has had multiple admissions to this hospital for the past year. Review of Systems Constitutional: Constitutional: Denies chills and Denies fever(s) Cardiovascular: Cardiovascular: Denies chest pain Respiratory: Respiratory: Denies cough Gastrointestinal: Gastrointestinal: Reports abdominal pain Genitourinary: Comments: On dialysis [facility] Past Medical History Medical History (Updated 10/26/23 @ 09:02 by Tu Rajput MD) Chronic foot ulcer Plantar ulcer of left foot Major depressive disorder, single episode, severe ESRD (end stage renal disease) Non-compliance with renal dialysis Hypertensive urgency MDD (major depressive disorder), recurrent episode MDD (major depressive disorder) Renal failure Foot ulcer CKD (chronic kidney disease) Hypertension Diabetic foot Hyperkalemia Vomiting Renal failure Hypertension Migraine Chronic pain ESRD on dialysis Non-compliance with renal dialysis Hypertension End-stage renal disease (ESRD) Gastroparesis Diabetic foot ulcer associated with type 2 diabetes mellitus Hypertensive emergency Diabetes ESRD needing dialysis Cardiomyopathy HFrEF (heart failure with reduced ejection fraction) Metabolic acidosis delivery delivered Anemia in chronic kidney disease (CKD) Anemia CKD (chronic kidney disease) Headache, migraine Abnormal finding on echocardiogram Elevated troponin Chest pain Acute worsening of stage 3 chronic kidney disease Generalized edema Sepsis Cellulitis Pleural effusion CHF (congestive heart failure) (~06/07/22) Tachycardia Atypical chest pain Bone infection PAD (peripheral artery disease) Severe anemia Cellulitis and abscess of foot DM foot ulcer Osteomyelitis Asthma Depression with anxiety Diabetic retinopathy Type 2 diabetes mellitus with hyperglycemia, with long-term current use of insulin Blind right eye Diabetes Back pain Family History Family History Mother Coronary artery disease Myocardial infarction Stroke Diabetes mellitus Father Myocardial infarction Surgical History Surgical History Tubal ligation status Previous section Hx laparoscopic cholecystectomy Hx of surgical procedure (~09/11/23) 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 Social History Social History Household Members: Family Household Members Other:: sister Housing: Apartment Do you presently have visiting nurse or other home services: No Unable to assess alcohol history related to: Unknown Alcohol intake: never 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 Patient Tobacco Use Status: Never used Tobacco Smoked in Last 30 Days: No e-Cigarette/Vaping Use: Never Used Second Hand Smoke Exposure: No Use of substances other than those prescribed or required for medical reasons: No Advance Directives: Yes Advance Directives on File: Yes Advance Directives Date on File: 09/04/23 Do you have a plan to hurt others: No Plan Nutrition Risks: No Nutritional Risk Patient : No service: No Current occupational status: unemployed and disabled Gender identity: Female Meds Allergies Allergy/AdvReac Type Severity Reaction Status Date / Time morphine [MORPHINE] Allergy Intermediate Itching Verified 10/25/23 17:15 azithromycin [From Zithromax] Allergy Hives Verified 10/25/23 17:15 gabapentin Allergy Facial Verified 10/25/23 17:15 Swelling tramadol Allergy Facial Verified 10/25/23 17:15 Swelling vancomycin Allergy Anaphylaxis Verified 10/25/23 17:15 Active Medications: Current Medications Acetaminophen (Acetaminophen 325 Mg Tablet) 650 mg PO Q6H PRN PRN Reason: Pain, Mild (Pain Scale 1-3), fever or headache Calcium Carbonate (Calcium Carbonate 750 Mg Tab.Chew) 750 mg PO Q4H PRN PRN Reason: Heartburn Calcium Carbonate (Calcium Carbonate 750 Mg Tab.Chew) 300 mg PO TIDWM [facility] Carvedilol (Carvedilol 12.5 Mg Tablet) 12.5 mg PO BID [facility]; Protocol Last Admin: 10/25/23 22:40 Dose: Not Given Diphenhydramine HCl (Diphenhydramine Hcl 12.5 Mg/5 Ml Liquid) 25 mg PO BEDTIME [facility] Last Admin: 10/25/23 22:40 Dose: Not Given Heparin Sodium (Porcine) (Heparin Sodium,Porcine 5,000 Unit/Ml Vial) 5,000 unit SUBCUT Q12H [facility] Last Admin: 10/26/23 08:45 Dose: Not Given Hydralazine HCl (Hydralazine Hcl 50 Mg Tablet) 100 mg PO TID [facility]; Protocol Last Admin: 10/25/23 22:40 Dose: Not Given Dextrose (D10) 250 mls @ 750 mls/hr IV Q15M PRN PRN Reason: per Hypoglycemia Standing Ord. Piperacillin Sod/Tazobactam (Sod 2.25 gm/ Sodium Chloride) 50 mls @ 100 mls/hr IV Q6H [facility] Last Admin: 10/26/23 06:07 Dose: 100 mls/hr Linezolid (Zyvox/D5w) 600 mg in 300 mls @ 300 mls/hr IV Q12H [facility] Magnesium Hydroxide (Milk Of Magnesia 30 Ml Oral.Susp) 30 ml PO DAILY PRN PRN Reason: Constipation Melatonin (Melatonin 3 Mg Tablet) 6 mg PO BEDTIME PRN PRN Reason: Insomnia Nifedipine (Nifedipine Er 60 Mg Tab.Er.24) 60 mg PO DAILY [facility]; Protocol Ondansetron HCl (Ondansetron Hcl 4 Mg/2 Ml Vial) 4 mg IVPUSH Q8H PRN PRN Reason: Nausea and Vomiting Last Admin: 10/26/23 08:36 Dose: 4 mg Oxycodone HCl (Oxycodone Hcl Immed Release 5 Mg Tablet) 5 mg PO Q6H PRN PRN Reason: pain, severe Last Admin: 10/26/23 03:03 Dose: 5 mg Sodium Chloride (0.9 % Sodium Chloride Flush 3 Ml Syringe) 3 ml IVFLUSH QSHIFT [facility] Last Admin: 10/26/23 00:24 Dose: Not Given Torsemide (Torsemide 20 Mg Tablet) 40 mg PO BID [facility]; Protocol Last Admin: 10/25/23 22:40 Dose: Not Given Home Medications ?Medication ?Instructions ?Recorded ?Confirmed ?Last Taken ?Type carvedilol 12.5 mg tablet 12.5 mg PO BID 06/05/23 10/25/23 10/17/23 History torsemide 20 mg tablet 40 mg PO BID 06/05/23 10/25/23 10/17/23 History calcium carbonate (Calcium Antacid) 1 tab PO TIDWM 08/28/23 10/25/23 10/17/23 History diphenhydramine HCl 12.5 mg/5 mL 25 mg PO BEDTIME 10/08/23 10/25/23 10/17/23 History oral elixir nifedipine 60 mg tablet,extended 60 mg PO DAILY 10/08/23 10/25/23 10/17/23 History release 24 hr Physical Exam Vital Signs: Vital Signs: Last Vital Signs Temp 97.5 F 10/26/23 06:00 Pulse 75 10/26/23 06:00 Resp 18 10/26/23 06:00 BP 182/87 H 10/26/23 06:00 Pulse Ox 94 10/26/23 06:00 O2 Del Method Nasal Cannula 10/26/23 06:00 O2 Flow Rate 2 10/26/23 06:00 BMI result Body Mass Index 28.5 Const: Other: Patient is blind General: comfortable and no acute distress Resp: Effort & Inspection: normal respiratory effort Cardio: Rate: regular rate GI: Palpation (GI): Soft to palpation, not firm and nontender Extrem: Other: Left foot transmetatarsal amputation site well healed, ulcer on the posterior aspect of the heel dry, with superficial scabbing; ulcer with callus on the plantar aspect also clean and dry, thinner hyperkeratotic tissue Right foot with ulcer also dry without any significant gangrene, no cellulitis Results Labs 10/25/23 17:27 10/25/23 17:27 Labs: Abnormal lab results 10/25/23 10/25/23 10/25/23 Range/Units 17:27 17:34 20:12 RBC 2.83 L (4.20-5.50) X10*6/uL Hgb 8.5 L (12.0-16.0) g/dl Hct 25.1 L (37.0-47.0) % RDW 16.1 H (11.0-16.0) % Immature Gran % (Auto) 0.5 H (0.0-0.4) % Neut % (Auto) 89.3 H (45-73) % Lymph % (Auto) 3.5 L (20-40) % Lymph # (Auto) 0.2 L (1.2-4.9) X10*3/uL VBG pH 7.61 H* (7.32-7.43) BUN 36 H (9-16) mg/dL Creatinine 5.62 H* (0.5-1.4) mg/dL Lactic Acid 3.2 H* (0.5-2.0) mmol/L Total Bilirubin 1.8 H (0.0-1.0) mg/dL AST 34 H (5-31) U/L Alkaline Phosphatase 204 H (39-117) U/L Troponin I High Sens 21.5 H D (<3.5-17.0) ng/L Total Protein 8.6 H (6.5-8.0) g/dL Beta-Hydroxybutyrate 0.58 H (0.02-0.27) mmol/L Short CBC 10/25/23 Range/Units 17:27 WBC 6.2 (4.8-10.8) X10*3/uL Hgb 8.5 L (12.0-16.0) g/dl Hct 25.1 L (37.0-47.0) % Plt Count 176 (160-400) X10*3/uL BMP 10/25/23 17:27 Sodium 137 Potassium 4.1 Chloride 98 Carbon Dioxide 23 BUN 36 H Creatinine 5.62 H* Calcium 9.1 D Liver Function 10/25/23 Range/Units 17:27 Total Bilirubin 1.8 H (0.0-1.0) mg/dL AST 34 H (5-31) U/L ALT 19 (0-31) U/L Alkaline Phosphatase 204 H (39-117) U/L Albumin 3.6 (3.5-5.0) g/dL All other labs normal. Assessment and Plan (1) Chronic foot ulcer: Status: Acute She has chronic ulcers on both the left and the right feet as described above. These appeared to be clean with no gangrenous tissue. The amputation site on the left foot is also clean and well healed I explained to her that she does not need any surgical intervention at this time. She is thinking of having an amputation at the level of the ankle because of her chronic left ankle pain. I explained to her that any further amputation would be a formal BKA on the left and would be higher than the level of the ankle but she does not want this either I do not recommend proceeding with further external amputation at this time. She needs good wound care for her chronic foot ulcers. Procedures Date of Service Date of Service: 10/26/23
--- NOTE | 2023-10-26 09:15 | PC.NURSE ---
pt refused lab work via phlebotomy. admitting provider notified/aware.
--- NOTE | 2023-10-26 10:36 | PC.NURSE ---
pt c/o bilateral foot pain - requesting medication. PRN medication utilized at this time. effectiveness pending. pt also verbalizing PO oxycodone has been ineffective for her in the past and is requesting something else - admitting provider notified/aware. plan of care ongoing. call moore placed within reach.
--- NOTE | 2023-10-26 10:51 | PC.NURSE ---
pt being transported to MRI at this time.
[2023-10-26] MEDS: Linezolid/D5W 600 MG/300 ML PIGGYBACK 300 MG IV ×2 (11:53→20:52)
[2023-10-26] MEDS: hydrALAZINE HCl 50 MG TABLET 100 MG PO (11:53)
[2023-10-26] MEDS: NIFEdipine ER 60 MG TAB.ER.24 PO (11:53)
[2023-10-26] MEDS: carvediloL 12.5 MG TABLET PO (11:53)
[2023-10-26] MEDS: Calcium Carbonate 750 MG TAB.CHEW 300 MG PO ×2 (11:53→17:10)
[2023-10-26] MEDS: Torsemide 20 MG TABLET 40 MG PO (11:53)
[2023-10-26] MEDS: HYDROmorphone HCl 0.5 MG/0.5 ML SYRINGE IVPUSH ×3 (12:19→22:45)
--- NOTE | 2023-10-26 12:23 | PC.NURSE ---
pt returned from MRI at this time. original ultrasound guided IV access no longer patent. new 20gIV placed in the left forearm - patent/intact. medication/abx administered per provider order. pt verbalizing increase in pain/nausea despite previous medication administrations. PRN dilaudid/zofran utilized. early zofran administration approved by dr. coronado. effectiveness pending. pt repositioned. resting in bed in no apparent distress. bed alarm turned on for sfaety precautions. call moore placed within reach.
--- NOTE | 2023-10-26 13:37 | PC.NURSE ---
delay in abx administration as prior abx was infusing. medication administered per provider order. pt still actively vomiting despite previous interventions. pt also c/o generalized itchiness throughout body. no signs of any respiratory distress/erythema/hives noted. no sob/wob noted. admitting provider notified/aware.
--- NOTE | 2023-10-26 13:46 | MHC.CLN ---
NUTRITION PATIENT WITH DX DIABETES AND ESRD ON HEMODIALYSIS. ADDED DM 1800 KCALS TO DIET ORDER. DIET=DIABETIC 1800 KCALS, 2 GRAM SODIUM, LOW POTASSIUM, LOW PHOSPHORUS.
--- NOTE | 2023-10-26 14:04 | PC.NURSE ---
pt being transported upstairs at this time.
[2023-10-26] MEDS: LORazepam 2 MG/ML VIAL 1 MG IVPUSH (14:17)
[2023-10-26] MEDS: diphenhydrAMINE HCL 50 MG/ML VIAL 25 MG IVPUSH (14:17)
[2023-10-26 14:30] LABS: Glucose, Whole Blood 120 mg/dL (60-115)
--- NOTE | 2023-10-26 14:52 | P.PNIM_ITS ---
Subjective Subjective Date of Service: 10/26/23 Interval History: reports N/V + pain of R>L foot no osteomyelitis on MRI febrile to 101 yesterday evening; afebrile since Review of Systems Review of Systems: Yes all other systems are reviewed and are negative Physical Exam 2 Vital Signs: Vital Signs: Last Vital Signs Temp 96.9 F 10/26/23 14:13 Pulse 72 10/26/23 14:13 Resp 18 10/26/23 14:13 BP 157/84 H 10/26/23 14:13 Pulse Ox 96 10/26/23 14:13 O2 Del Method Room Air 10/26/23 14:13 O2 Flow Rate 2 10/26/23 06:00 BMI result Body Mass Index 28.5 Gen: NAD HEENT: sclera anicteric, moist mucus membranes, blind Neck: supple Lungs: clear to auscultation bilaterally Heart: regular rate and rhythm, no murmurs Abd: soft, non-tender, non-distended Ext: s/p R TMA + L TMA Skin: L TMA with dry heel and plantar ulcers; R TMA with ulcer Neuro: alert and oriented x3, no focal findings Psych: restricted affect Objective Data Active Medications Acetaminophen (Acetaminophen 325 Mg Tablet) 650 mg PO Q6H PRN PRN Reason: Pain, Mild (Pain Scale 1-3), fever or headache Calcium Carbonate (Calcium Carbonate 750 Mg Tab.Chew) 750 mg PO Q4H PRN PRN Reason: Heartburn Calcium Carbonate (Calcium Carbonate 750 Mg Tab.Chew) 300 mg PO TIDWM [facility] Last Admin: 10/26/23 11:53 Dose: 300 mg Documented By: HORACIO Carvedilol (Carvedilol 12.5 Mg Tablet) 12.5 mg PO BID [facility]; Protocol Last Admin: 10/26/23 11:53 Dose: 12.5 mg Documented By: HORACIO Diphenhydramine HCl (Diphenhydramine Hcl 12.5 Mg/5 Ml Liquid) 25 mg PO BEDTIME [facility] Last Admin: 10/25/23 22:40 Dose: Not Given Documented By: JIMI Non-Admin Reason: Patient Refused Heparin Sodium (Porcine) (Heparin Sodium,Porcine 5,000 Unit/Ml Vial) 5,000 unit SUBCUT Q12H [facility] Last Admin: 10/26/23 08:45 Dose: Not Given Documented By: EDUIN Non-Admin Reason: Patient Refused Hydralazine HCl (Hydralazine Hcl 50 Mg Tablet) 100 mg PO TID [facility]; Protocol Last Admin: 10/26/23 11:53 Dose: 100 mg Documented By: HORACIO Hydromorphone HCl (Hydromorphone Hcl 0.5 Mg/0.5 Ml Syringe) 0.5 mg IVPUSH Q4H PRN; Protocol PRN Reason: Pain, Severe (Pain Scale 7-10) Last Admin: 10/26/23 12:19 Dose: 0.5 mg Documented By: HORACIO Dextrose (D10) 250 mls @ 750 mls/hr IV Q15M PRN PRN Reason: per Hypoglycemia Standing Ord. Piperacillin Sod/Tazobactam (Sod 2.25 gm/ Sodium Chloride) 50 mls @ 100 mls/hr IV Q6H [facility] Last Infusion: 10/26/23 14:11 Dose: Infused Documented By: COTEMA Linezolid (Zyvox/D5w) 600 mg in 300 mls @ 300 mls/hr IV Q12H [facility] Last Infusion: 10/26/23 12:53 Dose: Infused Documented By: HORACIO Magnesium Hydroxide (Milk Of Magnesia 30 Ml Oral.Susp) 30 ml PO DAILY PRN PRN Reason: Constipation Melatonin (Melatonin 3 Mg Tablet) 6 mg PO BEDTIME PRN PRN Reason: Insomnia Nifedipine (Nifedipine Er 60 Mg Tab.Er.24) 60 mg PO DAILY [facility]; Protocol Last Admin: 10/26/23 11:53 Dose: 60 mg Documented By: HORACIO Ondansetron HCl (Ondansetron Hcl 4 Mg/2 Ml Vial) 4 mg IVPUSH Q8H PRN PRN Reason: Nausea and Vomiting Last Admin: 10/26/23 12:22 Dose: 4 mg Documented By: HORACIO Oxycodone HCl (Oxycodone Hcl Immed Release 5 Mg Tablet) 5 mg PO Q6H PRN PRN Reason: pain, severe Last Admin: 10/26/23 10:32 Dose: 5 mg Documented By: HORACIO Sodium Chloride (0.9 % Sodium Chloride Flush 3 Ml Syringe) 3 ml IVFLUSH QSHIFT [facility] Last Admin: 08/30/24 09:15 Dose: Not Given Documented By: HORACIO Non-Admin Reason: IV Running Torsemide (Torsemide 20 Mg Tablet) 40 mg PO BID [facility]; Protocol Last Admin: 10/26/23 11:53 Dose: 40 mg Documented By: HORACIO Labs 10/25/23 17:27 10/25/23 17:27 Labs: Laboratory Results - last 24 hr 10/25/23 10/25/23 10/25/23 17:19 17:27 17:34 MCV 88.7 MCH 30.0 MCHC 33.9 RDW 16.1 H Plt Count 176 MPV 11.5 Immature Gran % (Auto) 0.5 H Neut % (Auto) 89.3 H Lymph % (Auto) 3.5 L [place] % (Auto) 5.9 Eos % (Auto) 0.3 Baso % (Auto) 0.5 Lymph # (Auto) 0.2 L [place] # (Auto) 0.4 Eos # (Auto) 0.0 Baso # (Auto) 0.0 Abs Immat Gran (auto) 0.03 Absolute Neuts (auto) 5.6 Absolute Nucleated RBC 0.000 Nucleated RBC % (auto) 0.0 VBG pH 7.61 H* VBG pCO2 25 VBG pO2 87 VBG HCO3 26 VBG O2 Saturation 99.0 VBG Base Excess 5.6 Anion Gap 20 Estim Creat Clear Calc 14.9 Estimated GFR 9 POC Glucose 60 Random Glucose 65 Lactic Acid 3.2 H* Lactic Acid F/U @ 2Hr Calcium 9.1 D Magnesium 2.2 Total Bilirubin 1.8 H AST 34 H ALT 19 Alkaline Phosphatase 204 H Troponin I High Sens 21.5 H D Total Protein 8.6 H Albumin 3.6 Lipase 13 Beta-Hydroxybutyrate Procalcitonin Influenza Type A (PCR) Influenza Type B (PCR) RSV RNA Qual (PCR) SARS-CoV-2 RNA (RT-PCR) 10/25/23 10/25/23 10/26/23 18:59 20:12 14:26 MCV MCH MCHC RDW Plt Count MPV Immature Gran % (Auto) Neut % (Auto) Lymph % (Auto) [place] % (Auto) Eos % (Auto) Baso % (Auto) Lymph # (Auto) [place] # (Auto) Eos # (Auto) Baso # (Auto) Abs Immat Gran (auto) Absolute Neuts (auto) Absolute Nucleated RBC Nucleated RBC % (auto) VBG pH VBG pCO2 VBG pO2 VBG HCO3 VBG O2 Saturation VBG Base Excess Anion Gap Estim Creat Clear Calc Estimated GFR POC Glucose 103 120 H Random Glucose Lactic Acid Lactic Acid F/U @ 2Hr 1.1 Calcium Magnesium Total Bilirubin AST ALT Alkaline Phosphatase Troponin I High Sens Total Protein Albumin Lipase Beta-Hydroxybutyrate 0.58 H Procalcitonin 0.55 Influenza Type A (PCR) NEGATIVE Influenza Type B (PCR) NEGATIVE RSV RNA Qual (PCR) NEGATIVE SARS-CoV-2 RNA (RT-PCR) NEGATIVE Impressions Chest X-Ray 10/25/23 17:19 IMPRESSION: Grossly clear and unchanged AP portable chest x-ray. Electronically signed by: Michael Valle MD 10/25/2023 07:05 PM EDT RP Foot X-Ray 10/25/23 17:45 IMPRESSION: Extensive postoperative changes bilaterally. There are chronic deformities in the left mid foot. There is evolving periosteal reaction/ossification associated with the remaining distal left metatarsal. Irregular appearance to the plantar distal remaining right first metatarsal which is nonspecific. No definite retained foreign body or definite soft tissue gas Electronically signed by: Houston Mosley MD 10/25/2023 07:17 PM EDT RP Foot X-Ray 10/25/23 17:45 IMPRESSION: Extensive postoperative changes bilaterally. There are chronic deformities in the left mid foot. There is evolving periosteal reaction/ossification associated with the remaining distal left metatarsal. Irregular appearance to the plantar distal remaining right first metatarsal which is nonspecific. No definite retained foreign body or definite soft tissue gas Electronically signed by: Houston Mosley MD 10/25/2023 07:17 PM EDT RP Foot MRI 10/26/23 08:00 IMPRESSION: No evidence of osteomyelitis. Electronically signed by: David Horan MD 10/26/2023 01:49 PM EDT RP Assessment and Plan (1) Sepsis: Status: Acute Plan d2 33yo F with ESRD on HD TuThSa [though refuses to go Sa], repeated hospitalizations due to nonadherence with HD, DM retinopathy with blindness, PVD s/p bilateral TMA, poorly controlled HTN due to nonadherence, chronic hypoxic respiratory failure, HFrEF, mood disorder, chronic pain presenting with N/V/abd pain x4d, found to be septic due to R diabetic foot infection sepsis due to infected R DFU - no osteomyelitis on MRI; Surg Consulted; Wound Care consult pending; continue linezolid + piperacillin-tazobactam, follow BCx chronic N/V - probably DM gastroparesis; continue antiemetics ESRD on HD - Nephro consulted; states went to HD yesterday HTN - resume hydralazine, cavedilol, nifedipine, torsemide chronic HFrEF - ongoing HD, antihypertensives as above chronic hypoxic resp failure - on 4L O2 at home troponin elevation - chronic, due to ESRD chronic pain - PO oxycodone, IV hydromorphone DM2 - muna-dose lispro CAD - ASA VTE ppx - UFH dispo - eventual home with VNA In my clinical judgment, the patient requires continued inpatient hospitalization for the following reasons: IV ABX Total time managing care of this patient today: 35 minutes. Quality Stroke Does the patient have a stroke diagnosis?: No VTE Prior VTE?: No VTE Risk Level:: Medical - moderate - high VTE Device Contraindication: Treatment Not Indicated VTE Drug Contraindication: N/A - Med Ordered
[2023-10-26] MEDS: 0.9 % Sodium Chloride Flush 3 ML SYRINGE IVFLUSH (18:08)
[2023-10-26] MEDS: diphenhydrAMINE HCl 12.5 MG/5 ML LIQUID 25 MG PO (20:41)
[2023-10-26] MEDS: Melatonin 3 MG TABLET 6 MG PO (20:42)
[2023-10-27] MEDS: 0.9 % Sodium Chloride Flush 3 ML SYRINGE IVFLUSH ×4 (00:09→23:24)
[2023-10-27] MEDS: Piperacillin Sodium/Tazobactam 2.25 GM in 0.9 % Sodium Chloride 50 ML IV ×4 (00:10→23:21)
[2023-10-27 02:58] VITALS: RESP 16
[2023-10-27] MEDS: HYDROmorphone HCl 0.5 MG/0.5 ML SYRINGE IVPUSH ×5 (02:58→21:03)
[2023-10-27 03:36] VITALS: BP 119/64; PULSE 69; RESP 18; TEMP 36.3; O2SAT 98
[2023-10-27 06:53] VITALS: BP 115/58; PULSE 68; RESP 16; TEMP 36.6; O2SAT 100
[2023-10-27 07:06] LABS: Glucose, Whole Blood 97 mg/dL (60-115)
[2023-10-27 07:07] LABS: Anion Gap 16 (12-20); Blood Urea Nitrogen 42 mg/dL (9-16); Calcium 7.9 mg/dL (8.4-10.2); Carbon Dioxide 24 mmol/L (22-29); Chloride 96 mmol/L (96-108); Creatinine Clr Calc Pharmacy 11.6; Estimated Glomerular Filt Rate 6; Glucose Random 96 mg/dL (60-115); Potassium 3.7 mmol/L (3.3-5.1); Sodium 132 mmol/L (135-145)
[2023-10-27 07:21] LABS: Hematocrit 24.1 % (37.0-47.0); Hemoglobin 7.8 g/dl (12.0-16.0); Mean Corpuscular HGB Conc 32.4 g/dl (31.0-35.0); Mean Corpuscular Hemoglobin 29.5 pg (27.0-33.0); Mean Corpuscular Volume 91.3 fL (80.0-98.0); Mean Platelet Volume 12.3 fL (9.4-12.3); Platelet Count 113 X10*3/uL (160-400); Red Blood Count 2.64 X10*6/uL (4.20-5.50); Red Cell Distribution Width 16.5 % (11.0-16.0); White Blood Count 3.1 X10*3/uL (4.8-10.8)
[2023-10-27] MEDS: Linezolid/D5W 600 MG/300 ML PIGGYBACK 300 MG IV ×2 (07:34→20:43)
[2023-10-27] MEDS: Calcium Carbonate 750 MG TAB.CHEW PO (07:44)
[2023-10-27 08:13] LABS: Glucose, Whole Blood 132 mg/dL (60-115)
[2023-10-27 08:13] LABS: Glucose, Whole Blood 65 mg/dL (60-115)
[2023-10-27 08:13] LABS: Glucose, Whole Blood 98 mg/dL (60-115)
[2023-10-27 08:50] VITALS: BP 107/58; PULSE 67; RESP 16; TEMP 36.6; O2SAT 96
--- NOTE | 2023-10-27 10:13 | HO.PM.IMPN ---
Subjective Subjective Date of Service: 10/27/23 Interval History: reports N/V + pain of R>L foot no osteomyelitis on MRI febrile to 101 yesterday evening; afebrile since Review of Systems Review of Systems: Yes all other systems are reviewed and are negative Physical Exam Vital Signs: Vital Signs: Last Vital Signs Temp 98 F 10/27/23 08:50 Pulse 67 10/27/23 08:50 Resp 16 10/27/23 08:50 BP 107/58 L 10/27/23 08:50 Pulse Ox 96 10/27/23 08:50 O2 Del Method Nasal Cannula 10/27/23 08:50 O2 Flow Rate 2 10/27/23 08:50 BMI result Body Mass Index 28.5 Appearing in no acute distress lung sounds are clear to auscultation heart regular rate rhythm, clear S1, S2 positive bowel sounds, abdomen is soft, nontender neuro patient is alert x3, no focal deficits Blind Bilat TMA Objective Data Active Medications Acetaminophen (Acetaminophen 325 Mg Tablet) 650 mg PO Q6H PRN PRN Reason: Pain, Mild (Pain Scale 1-3), fever or headache Calcium Carbonate (Calcium Carbonate 750 Mg Tab.Chew) 750 mg PO Q4H PRN PRN Reason: Heartburn Calcium Carbonate (Calcium Carbonate 750 Mg Tab.Chew) 750 mg PO TIDWM [facility] Last Admin: 10/27/23 07:44 Dose: 750 mg Documented By: SERGIO Carvedilol (Carvedilol 12.5 Mg Tablet) 12.5 mg PO BID [facility]; Protocol Last Admin: 10/27/23 09:07 Dose: Not Given Documented By: SERGIO Non-Admin Reason: Patient Refused Diphenhydramine HCl (Diphenhydramine Hcl 12.5 Mg/5 Ml Liquid) 25 mg PO BEDTIME [facility] Last Admin: 10/26/23 20:41 Dose: 25 mg Documented By: SUNNY Heparin Sodium (Porcine) (Heparin Sodium,Porcine 5,000 Unit/Ml Vial) 5,000 unit SUBCUT Q12H [facility] Last Admin: 10/27/23 07:41 Dose: Not Given Documented By: SERGIO Non-Admin Reason: Patient Refused Hydralazine HCl (Hydralazine Hcl 50 Mg Tablet) 100 mg PO TID [facility]; Protocol Last Admin: 10/27/23 09:07 Dose: Not Given Documented By: SERGIO Non-Admin Reason: Patient Refused Hydromorphone HCl (Hydromorphone Hcl 0.5 Mg/0.5 Ml Syringe) 0.5 mg IVPUSH Q4H PRN; Protocol PRN Reason: Pain, Severe (Pain Scale 7-10) Last Admin: 10/27/23 07:34 Dose: 0.5 mg Documented By: SERGIO Dextrose (D10) 250 mls @ 750 mls/hr IV Q15M PRN PRN Reason: per Hypoglycemia Standing Ord. Piperacillin Sod/Tazobactam (Sod 2.25 gm/ Sodium Chloride) 50 mls @ 100 mls/hr IV Q6H [facility] Last Infusion: 10/27/23 05:50 Dose: Infused Documented By: SUNNY Linezolid (Zyvox/D5w) 600 mg in 300 mls @ 300 mls/hr IV Q12H [facility] Last Infusion: 10/27/23 08:56 Dose: Infused Documented By: SERGIO Magnesium Hydroxide (Milk Of Magnesia 30 Ml Oral.Susp) 30 ml PO DAILY PRN PRN Reason: Constipation Melatonin (Melatonin 3 Mg Tablet) 6 mg PO BEDTIME PRN PRN Reason: Insomnia Last Admin: 10/26/23 20:42 Dose: 6 mg Documented By: SUNNY Nifedipine (Nifedipine Er 60 Mg Tab.Er.24) 60 mg PO DAILY [facility]; Protocol Last Admin: 10/27/23 09:07 Dose: Not Given Documented By: SERGIO Non-Admin Reason: Patient Refused Ondansetron HCl (Ondansetron Hcl 4 Mg/2 Ml Vial) 4 mg IVPUSH Q8H PRN PRN Reason: Nausea and Vomiting Last Admin: 10/26/23 12:22 Dose: 4 mg Documented By: HORACIO Oxycodone HCl (Oxycodone Hcl Immed Release 5 Mg Tablet) 5 mg PO Q6H PRN PRN Reason: pain, severe Last Admin: 10/26/23 10:32 Dose: 5 mg Documented By: HORACIO Sodium Chloride (0.9 % Sodium Chloride Flush 3 Ml Syringe) 3 ml IVFLUSH QSHIFT [facility] Last Admin: 10/27/23 07:41 Dose: 3 ml Documented By: SERGIO Torsemide (Torsemide 20 Mg Tablet) 40 mg PO BID [facility]; Protocol Last Admin: 10/27/23 09:07 Dose: Not Given Documented By: SERGIO Non-Admin Reason: Patient Refused Labs 10/27/23 06:10 10/27/23 06:10 Labs: Laboratory Results - last 24 hr 10/25/23 10/26/23 10/26/23 22:12 08:01 12:26 MCV MCH MCHC RDW Plt Count MPV Absolute Nucleated RBC Nucleated RBC % (auto) Anion Gap Estim Creat Clear Calc Estimated GFR POC Glucose 98 65 132 H Random Glucose Calcium 10/26/23 10/27/23 10/27/23 14:26 06:10 06:53 MCV 91.3 MCH 29.5 MCHC 32.4 RDW 16.5 H Plt Count 113 L D MPV 12.3 Absolute Nucleated RBC 0.000 Nucleated RBC % (auto) 0.0 Anion Gap 16 Estim Creat Clear Calc 11.6 Estimated GFR 6 POC Glucose 120 H 97 Random Glucose 96 Calcium 7.9 L D Microbiology Microbiology Results: Microbiology 10/25/23 20:12 Blood Culture - Preliminary Blood - Venous No growth after 24 hours. 10/25/23 17:27 Blood Culture - Preliminary Blood - Venous No growth after 24 hours. Assessment and Plan (1) Sepsis: Status: Acute Plan 33yo F with ESRD on HD TuThSa [though refuses to go Sa], repeated hospitalizations due to nonadherence with HD, DM retinopathy with blindness, PVD s/p bilateral TMA, poorly controlled HTN due to nonadherence, chronic hypoxic respiratory failure, HFrEF, mood disorder, chronic pain presenting with N/V/abd pain x4d, found to be septic due to R diabetic foot infection sepsis due to infected R DFU no osteomyelitis on MRI Surg Consulted> no surgery needed at this time Wound Care consult pending continue linezolid + piperacillin-tazobactam blood cx neg chronic N/V probably DM gastroparesis; continue antiemetics ESRD on HD Nephro consulted HTN resume hydralazine, cavedilol, nifedipine, torsemide chronic HFrEF ongoing HD, antihypertensives as above chronic hypoxic resp failure on 4L O2 at home troponin elevation chronic, due to ESRD chronic pain PO oxycodone, IV hydromorphone DM2 muna-dose lispro CAD ASA VTE ppx UFH dispo eventual home with VNA In my clinical judgment, the patient requires continued inpatient hospitalization for the following reasons: IV ABX Total time managing care of this patient today: 35 minutes. Quality Stroke Does the patient have a stroke diagnosis?: No VTE Prior VTE?: No VTE Risk Level:: Medical - moderate - high VTE Device Contraindication: Treatment Not Indicated VTE Drug Contraindication: N/A - Med Ordered
[2023-10-27 11:14] LABS: Glucose, Whole Blood 145 mg/dL (60-115)
[2023-10-27 15:58] VITALS: BP 145/88; PULSE 79; RESP 20; TEMP 35.9; O2SAT 99
--- NOTE | 2023-10-27 16:20 | MHC.CM.PN ---
PT LIVES WITH HER SISTER WHO IS ALSO HER WOOD CARVER HAND PT USES A WHEEL CHAIR FOR MOBILITY AND HAS HOME O2 FROM [facility] SHE GOES TO [facility] FOR HD HCP ON FILE PCP: ARMANI CHATMAN IMM DELIVERED DCP: [facility] SISTER TO TRANSPORT
[2023-10-27 16:26] LABS: Glucose, Whole Blood 123 mg/dL (60-115)
[2023-10-27] MEDS: ondansetron HCL 4 MG/2 ML VIAL IVPUSH (16:46)
[2023-10-27 20:00] VITALS: BP 142/82; PULSE 80; RESP 18; TEMP 36.2; O2SAT 100
[2023-10-27] MEDS: diphenhydrAMINE HCl 12.5 MG/5 ML LIQUID 25 MG PO (20:40)
[2023-10-27] MEDS: carvediloL 12.5 MG TABLET PO (20:42)
[2023-10-27] MEDS: Melatonin 3 MG TABLET 6 MG PO (21:03)
[2023-10-28] MEDS: HYDROmorphone HCl 0.5 MG/0.5 ML SYRINGE IVPUSH ×2 (01:05→05:12)
[2023-10-28 04:00] VITALS: BP 169/90; PULSE 73; RESP 16; TEMP 36; O2SAT 95
[2023-10-28] MEDS: Piperacillin Sodium/Tazobactam 2.25 GM in 0.9 % Sodium Chloride 50 ML IV (04:56)
[2023-10-28 05:15] VITALS: BP 164/90
--- NOTE | 2023-10-28 05:18 | PC.NURSE ---
0410; Patients BP is 169/90, blood pressure repeated @0519- 164/90- provider Donato made aware
[2023-10-28 08:00] VITALS: BP 134/69; PULSE 74; RESP 19; TEMP 36.6; O2SAT 97
[2023-10-28] MEDS: Linezolid/D5W 600 MG/300 ML PIGGYBACK 300 MG IV (08:23)
[2023-10-28] MEDS: Calcium Carbonate 750 MG TAB.CHEW PO (08:24)
[2023-10-28] MEDS: hydrALAZINE HCl 50 MG TABLET 100 MG PO (08:24)
[2023-10-28] MEDS: carvediloL 12.5 MG TABLET PO (08:24)
[2023-10-28] MEDS: NIFEdipine ER 60 MG TAB.ER.24 PO (08:24)
[2023-10-28] MEDS: 0.9 % Sodium Chloride Flush 3 ML SYRINGE IVFLUSH (08:35)
--- NOTE | 2023-10-28 09:18 | PM.DS ---
DS: Providers Provider Date of Service: 10/28/23 Date of admission: 10/25/23 19:38 Primary care physician: Genevieve aCsillas MD Consults: 10/25/23 19:37 Consult to General Surgery Routine Consulting Provider: [facility] Reason for consultation: foot infection Consult to Nephrology Routine Consulting Provider: [facility] Reason for consultation: Missed HD 10/26/23 14:31 Consult to Wound Care Routine Reason for consultation: diabetic ulcer to bilat feet DS: Diagnosis Discharge Diagnosis (1) Sepsis: Status: Acute DS: Summary Hospital Course Hospital Course: History and physical as per admitting provider. Pt is a 33-year-old female with a PMH significant for?ESRD on HD Sun/Sun (refuses to go on Saturdays), multiple hospitalizations due to noncompliance with hemodialysis, diabetic retinopathy with blindness, peripheral vascular disease (s/p bilat transmetatarsal amputation), poorly controlled hypertension due to noncompliance with medications, chronic respiratory failure on supplemental oxygen, HFrEF, mood disorder, and chronic pain with opiate seeking behavior who presents to the ED with nausea, vomiting, and abdominal pain x4 days. Patient states she has been unable to tolerate p.o. during this time. No diarrhea. Also complains of worsening chronic foot pain secondary to chronic diabetic foot wounds. Pain radiates up to her back and neck. Chronic foot wounds on right foot has been having foul-smelling discharge x4 days. Subjective fever and chills at home. Chronic SOB at baseline. No chest pain/pressure, palpitations. Patient was last admitted to the hospital 8 days prior on 10/16-10/18 where she was treated for electrolyte abnormalities secondary to missing dialysis. This is the patient's 14th admission to the hospital this year. In the ED pt was febrile up to 101.0, tachycardic up to 94, and hypertensive up to 180/86. Labs were significant for stable anemia of 8.5/25.1, BUN 36, creatinine 5.62, lactic acid 3.2, total bilirubin 1.8, AST 34, alk-phos 204, and initial troponin 21.5. CXR showed grossly clear and unchanged CXR. X-ray of feet showing extensive postoperative changes bilaterally, though with no x-ray evidence of acute osteomyelitis. EKG demonstrated sinus tachycardia of 109 with RBBB and no significant ST elevations or depressions. Pt was treated with linezolid and Zosyn. Pt will be admitted to the hospital for treatment and further evaluation of acute cellulitis secondary to chronic diabetic foot ulcers with sepsis. 33-year-old woman well known to the hospitalist service treated for sepsis secondary to right foot infection. MRI showed no osteomyelitis. Seen and evaluated by General surgery with no recommendation for surgical procedure at this time. Patient was treated with linezolid and Zosyn. Blood cultures have remained negative. Plan is to discharge patient with doxycycline to complete total of 7 day treatment. Patient is in agreement with this. She will continue wound care at home and be compliant with her dialysis sessions. She does have a history of chronic nausea and vomiting secondary to gastroparesis and this has been pretty well controlled during her admission. Hypertension. Continue hydralazine, carvedilol, nifedipine, torsemide Chronic heart failure with reduced ejection fraction. Continue dialysis and antihypertensives as above. History of chronic pain. Treated with IV Dilaudid and oxycodone during admission Diabetes mellitus. Continue home medications and regimen History of coronary artery disease. Continue beta-mohamud Time Attestation Discharge Coordination Time (in mins): 36 Quality: Safe Use of Opioids Does Pt have an Active Cancer Diagnosis on the Problem List?: No Quality: Stroke Does the patient have a stroke diagnosis?: No Physical Exam Vital Signs: Vital Signs: Last Vital Signs Temp 97.8 F 10/28/23 08:00 Pulse 74 10/28/23 08:00 Resp 19 10/28/23 08:00 BP 134/69 10/28/23 08:00 Pulse Ox 97 10/28/23 08:00 O2 Del Method Room Air 10/28/23 08:00 O2 Flow Rate 1 10/27/23 15:58 BMI result Body Mass Index 28.5 Appearing in no acute distress head is normocephalic atraumatic eyes pupils are PERRLA sclera is anicteric mouth throat mucous membranes are intact and moist neck is supple no lymphadenopathy, no JVD noted lung sounds are clear to auscultation heart regular rate rhythm, clear S1, S2 positive bowel sounds, abdomen is soft, nontender neuro patient is alert x3, no focal deficits Multiple scabs and old healing wounds to both feet, dry stump areas, bilateral TMA DS: Data Data Completed and Pending Completed studies during hospitalization [Text1]: Procedures Detachment at Left 2nd Toe, Complete, Open Approach (09/08/23) Detachment at Left 3rd Toe, Complete, Open Approach (09/08/23) Detachment at Left 4th Toe, Complete, Open Approach (09/08/23) Detachment at Right Foot, Partial 1st Ray, Open Approach (03/01/20) Detachment at Right Foot, Partial 2nd Ray, Open Approach (03/01/20) Detachment at Right Foot, Partial 3rd Ray, Open Approach (03/01/20) Detachment at Right Foot, Partial 4th Ray, Open Approach (03/01/20) Detachment at Right Foot, Partial 5th Ray, Open Approach (03/01/20) Drainage of Right Pleural Cavity, Percutaneous Approach (01/14/21) Excision of Left Foot Skin, External Approach (10/08/23) Excision of Left Foot Subcutaneous Tissue and Fascia, Open Approach (10/08/23) Excision of Right Foot Skin, External Approach (08/27/23) Excision of Stomach, Pylorus, Via Natural or Artificial Opening Endoscopic, Diagnostic (08/27/22) Fluoroscopy of Superior Vena Cava, Guidance (08/14/22) Insertion of Infusion Device into Right Atrium, Percutaneous Approach (08/14/22) Insertion of Infusion Device into Superior Vena Cava, Percutaneous Approach (01/14/21) Insertion of Infusion Device into Upper Vein, Percutaneous Approach (08/27/23) Insertion of Tunneled Vascular Access Device into Chest Subcutaneous Tissue and Fascia, Percutaneous Approach (08/14/22) Performance of Urinary Filtration, Intermittent, Less than 6 Hours Per Day (10/08/23) Removal of Infusion Device from Great Vessel, External Approach (01/14/21) Transfusion of Nonautologous Red Blood Cells into Peripheral Vein, Percutaneous Approach (04/22/22) Labs on day of discharge: Laboratory Results - last 24 hr 10/27/23 10/27/23 11:07 16:13 POC Glucose 145 H 123 H Preliminary micro results at discharge 10/25/23 20:12 Blood Culture - Preliminary Blood - Venous No growth after 48 hours. 10/25/23 17:27 Blood Culture - Preliminary Blood - Venous No growth after 48 hours. Discharge Plan Discharge Anticipated Discharge Date/Time: 10/28/23 08:08 Patient Disposition: Home, Self-Care Discharge Diagnosis: Sepsis foot wound Referrals: Genevieve Gtz MD [Primary Care Provider] - 1 Week Discharge Medications: New doxycycline hyclate 100 mg tablet 100 mg PO BID Qty: 10 0RF Continued (DME) off loading boot Kit See Rx Instructions .Route Qty: 1 0RF Rx Instructions: As directed carvedilol 12.5 mg tablet 12.5 mg PO BID torsemide 20 mg tablet 40 mg PO BID Calcium Antacid 300 mg (750 mg) tablet,chewable 1 tab PO TIDWM nifedipine 60 mg tablet extended release 24hr 60 mg PO DAILY diphenhydramine HCl 12.5 mg/5 mL Elixir 25 mg PO BEDTIME hydralazine 50 mg Tablet 100 mg PO TID Qty: 90 2RF Protocol: Hold for SBP< HOLD for SBP < : 90 ondansetron 4 mg tablet,disintegrating 4 mg PO Q8H PRN (Reason: nausea and vomiting) Qty: 14 0RF oxycodone 5 mg tablet 5 mg PO Q6H PRN (Reason: pain, severe) Qty: 20 0RF Rx Instructions: Partial Fill upon patient request. Discharge Orders: Discharge Order (Routine); Ordered 10/28/23 Ordered By: Tawny Taylor Diet: Advance to usual diet Activity on Discharge: As tolerated Stand Alone Forms: Patient Portal Discharge page Print Language: Portuguese Care Plan Goals: complete antibiotics Health Concerns: Sepsis foot wound Plan of Treatment: Follow-up with primary care provider as needed Take all medications as prescribed Assessment: See discharge summary
== END 2023-10-28 13:06 | disposition home or self-care (01) | DRG 871 ==
LOC: HO.ED 17:44 → HO.EDOVER 20:51 → HO.S3 10-26 13:06
PROVIDERS: Family Medicine; Admitting Provider Student in an Organized Health Care Education/Training Program; Emergency Provider Student in an Organized Health Care Education/Training Program; PCP Student in an Organized Health Care Education/Training Program; Visit Provider Nurse Practitioner Acute Care
DX: A41.9 Sepsis, unspecified organism (principal); N18.6 End stage renal disease; I13.2 Hypertensive heart and chronic kidney disease with heart failure and with stage 5 chronic kidney disease, or end stage renal disease; I50.22 Chronic systolic (congestive) heart failure; J96.11 Chronic respiratory failure with hypoxia; I42.9 Cardiomyopathy, unspecified; L97.429 Non-pressure chronic ulcer of left heel and midfoot with unspecified severity; L03.116 Cellulitis of left lower limb; E11.42 Type 2 diabetes mellitus with diabetic polyneuropathy; E11.43 Type 2 diabetes mellitus with diabetic autonomic (poly)neuropathy; K31.84 Gastroparesis; E11.319 Type 2 diabetes mellitus with unspecified diabetic retinopathy without macular edema; E11.51 Type 2 diabetes mellitus with diabetic peripheral angiopathy without gangrene; E11.628 Type 2 diabetes mellitus with other skin complications; E11.621 Type 2 diabetes mellitus with foot ulcer; L97.519 Non-pressure chronic ulcer of other part of right foot with unspecified severity; I25.10 Atherosclerotic heart disease of native coronary artery without angina pectoris; E11.22 Type 2 diabetes mellitus with diabetic chronic kidney disease; Z99.81 Dependence on supplemental oxygen; G89.29 Other chronic pain; Z20.822 Contact with and (suspected) exposure to COVID-19; Z91.148 Patient's other noncompliance with medication regimen for other reason; Z91.158 Patient's noncompliance with renal dialysis for other reason; Z99.2 Dependence on renal dialysis; Z79.899 Other long term (current) drug therapy
CPT/HCPCS: 0241U; 36415; 71045; 73630; 73718; 80048; 80053; 82010; 82803; 82947; 83605; 83690; 83735; 84145; 84484; 85025; 85027; 87040; 90999; 93005; 99285; J1170; J1200; J1920; J2020; J2060; J2405; J2543

== ENCOUNTER → 2023-10-25 19:38 | Outpatient (BNV) | payer OTHER, SELFPAY | PROVIDERS: Admitting Provider Student in an Organized Health Care Education/Training Program; Emergency Provider Student in an Organized Health Care Education/Training Program; Visit Provider Student in an Organized Health Care Education/Training Program | DX: A41.9 Sepsis, unspecified organism (principal); E11.621 Type 2 diabetes mellitus with foot ulcer; L97.519 Non-pressure chronic ulcer of other part of right foot with unspecified severity | CPT/HCPCS: 99223; 99232; 99239 ==

== ENCOUNTER → 2023-10-25 19:38 | Outpatient (BNV) | payer OTHER, SELFPAY | PROVIDERS: Admitting Provider Student in an Organized Health Care Education/Training Program; Emergency Provider Student in an Organized Health Care Education/Training Program; PCP Student in an Organized Health Care Education/Training Program; Visit Provider Surgery | DX: L97.509 Non-pressure chronic ulcer of other part of unspecified foot with unspecified severity (principal) | CPT/HCPCS: 99024 ==

== ENCOUNTER 2023-10-29 22:54 | Emergency (ER) | payer OTHER, SELFPAY ==
[2023-10-29 23:05] VITALS: BP 201/91; BP 214/113; PULSE 97; RESP 18; TEMP 36.5; O2SAT 98; O2SAT 99; BMI 30.1
--- NOTE | 2023-10-29 23:49 | ECG_ITS ---
Test Reason : EXTREMITY PAIN Blood Pressure : / mmHG Vent. Rate : 094 BPM Atrial Rate : 094 BPM P-R Int : 162 ms QRS Dur : 152 ms QT Int : 436 ms P-R-T Axes : 045 -25 072 degrees QTc Int : 545 ms Normal sinus rhythm Possible Left atrial enlargement Right bundle branch block Abnormal ECG When compared with ECG of 25-OCT-2023 17:15, Nonspecific T wave abnormality now evident in Inferior leads Referred By: Helen Pal Electronically Signed By:JULIÁN CANCINO
--- NOTE | 2023-10-29 23:51 | ED.GENADULT ---
HPI - General Adult General Chief complaint: Extremity Injury, Lower Stated complaint: Dialysis patient, CC chest/abd pain/dizziness Time Seen by Provider: 10/29/23 23:27 Source: patient and EMS Mode of arrival: EMS Limitations: no limitations History of Present Illness ED Provider: Dr. Helen Pal HPI narrative: Patient comes to the emergency room complaining of severe bilateral lower extremity pain. Patient was discharged from this hospital yesterday. Patient was seen by Dr. Rajput, patient known to have chronic wounds in lower extremities, patient known to be noncompliant with her medications and dialysis. Patient stating that she has drainage from her ulcers. Related Data Home Medications ?Medication ?Instructions ?Recorded ?Confirmed carvedilol 12.5 mg tablet 12.5 mg PO BID 06/05/23 10/25/23 torsemide 20 mg tablet 40 mg PO BID 06/05/23 10/25/23 calcium carbonate (Calcium Antacid) 1 tab PO TIDWM 08/28/23 10/25/23 diphenhydramine HCl 12.5 mg/5 mL 25 mg PO BEDTIME 10/08/23 10/25/23 oral elixir nifedipine 60 mg tablet,extended 60 mg PO DAILY 10/08/23 10/25/23 release 24 hr Previous Rx's ?Medication ?Instructions ?Recorded off loading boot #1 ea 03/14/23 hydralazine 50 mg tablet 100 mg PO TID #90 tabs 10/19/23 ondansetron 4 mg disintegrating 4 mg PO Q8H PRN nausea and 10/19/23 tablet vomiting #14 tabs oxycodone 5 mg tablet 5 mg PO Q6H PRN pain, severe #20 10/19/23 tabs doxycycline hyclate 100 mg tablet 100 mg PO BID #10 tabs 10/28/23 Allergies Allergy/AdvReac Type Severity Reaction Status Date / Time morphine [MORPHINE] Allergy Intermediate Itching Verified 10/29/23 23:08 azithromycin [From Zithromax] Allergy Hives Verified 10/29/23 23:08 gabapentin Allergy Facial Verified 10/29/23 23:08 Swelling tramadol Allergy Facial Verified 10/29/23 23:08 Swelling vancomycin Allergy Anaphylaxis Verified 10/29/23 23:08 Review of Systems Review of Systems: Constitutional : No Weight loss, No Fever, No Chills, No Night Sweats, No Fatigue, No Malaise ENT/Mouth : No Hearing loss, No Ear Pain, No Nasal Congestion, No Sinus Pain, No Hoarseness, No sore throat, No Rhinorrhea, No Swallowing Difficulty Eyes: No Eye Pain, No Swelling, No Redness, No Foreign Body, No Discharge, No Vision Changes Cardiovascular : No Chest Pain, No SOB, No Dyspnea on Exertion, No Orthopnea, No Edema, No Palpitations Respiratory : No Cough, No Sputum, No Wheezing, No Smoke Exposure, No Dyspnea Gastrointestinal : No Nausea, No Vomiting, No Diarrhea, No Constipation, No abdominal Pain, No Hematochezia, No Melena Genitourinary : no irregular bleeding, No Dysuria, No Urinary Frequency, No Hematuria, No Urinary Incontinence, No Urgency, No Flank Pain, No Urinary Flow Changes, No Hesitancy Musculoskeletal : Complaining of pain in bilateral lower extremities, Complaining of lower extremity chronic pain, No Myalgias, No Joint Swelling Skin : No Skin Lesions, No rash Neuro : No Weakness, No Numbness, No Paresthesias, No Loss of Consciousness, No Dizziness, No Headache Psych : No Anxiety/Panic, No Depression, No SI/HI/AH/VH, No Social Issues, Heme/Lymph: No Bruising, No Bleeding,No Lymphadenopathy Endocrine : No Polyuria, No Polydipsia, No Temperature Intolerance PMFSH Past Medical History Medical History Chronic foot ulcer Plantar ulcer of left foot Major depressive disorder, single episode, severe ESRD (end stage renal disease) Non-compliance with renal dialysis Hypertensive urgency MDD (major depressive disorder), recurrent episode MDD (major depressive disorder) Renal failure Foot ulcer CKD (chronic kidney disease) Hypertension Diabetic foot Hyperkalemia Vomiting Renal failure Hypertension Migraine Chronic pain ESRD on dialysis Non-compliance with renal dialysis Hypertension End-stage renal disease (ESRD) Gastroparesis Diabetic foot ulcer associated with type 2 diabetes mellitus Hypertensive emergency Diabetes ESRD needing dialysis Cardiomyopathy HFrEF (heart failure with reduced ejection fraction) Metabolic acidosis delivery delivered Anemia in chronic kidney disease (CKD) Anemia CKD (chronic kidney disease) Headache, migraine Abnormal finding on echocardiogram Elevated troponin Chest pain Acute worsening of stage 3 chronic kidney disease Generalized edema Sepsis Cellulitis Pleural effusion CHF (congestive heart failure) (~06/07/22) Tachycardia Atypical chest pain Bone infection PAD (peripheral artery disease) Severe anemia Cellulitis and abscess of foot DM foot ulcer Osteomyelitis Asthma Depression with anxiety Diabetic retinopathy Type 2 diabetes mellitus with hyperglycemia, with long-term current use of insulin Blind right eye Diabetes Back pain Surgical History Tubal ligation status Previous section Hx laparoscopic cholecystectomy Hx of surgical procedure (~09/11/23) 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 Family History Family History Mother Coronary artery disease Myocardial infarction Stroke Diabetes mellitus Father Myocardial infarction Social History Social History Household Members: Family Household Members Other:: sister Housing: Apartment Do you presently have visiting nurse or other home services: Yes Unable to assess alcohol history related to: Unknown Alcohol intake: never 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 Patient Tobacco Use Status: Never used Tobacco e-Cigarette/Vaping Use: Never Used Second Hand Smoke Exposure: No Advance Directives: Yes Advance Directives on File: Yes Advance Directives Date on File: 09/04/23 Do you have a plan to hurt others: No Plan service: No Current occupational status: unemployed and disabled Gender identity: Female Physical Exam ED Vital Signs: Vital Signs - 24 hr 10/29/23 23:05 10/30/23 01:18 Temperature 97.7 F Pulse Rate 97 97 Respiratory Rate 18 Blood Pressure 214/113 H 217/110 H Pulse Oximetry 98 Oxygen Delivery Method Room Air BMI result Body Mass Index 30.1 Const Other: Appearance: Alert. Oriented X3. Eyes: Patient is chronically blind ENT: Pharynx normal. Neck: Normal inspection. Neck supple. No lymph nodes noted. No crepitus CVS: Normal heart rate and rhythm. Pulses normal. Normal S1 and S2 Respiratory: No respiratory distress. Breath sounds normal. No Wheezing. No rales Abdomen: Soft and nontender. No rigidity. No distention. Skin: Skin warm and dry. Normal skin color. Normal skin turgor. Extremities: Patient has no toes due to amputations. The ulcers in both feet look dry, no purulent drainage, no cellulitis, no foul smelling discharge, her causes are completely dry Neuro: Oriented X 3. No motor deficit. No sensory deficit. Moving all extremities. No slurred speech. CN 2 through 12 grossly intact Psych: calm, cooperative, normal affect Course Course Course Narrative: Patient has bandages on both feet were changed , patient has new ones at this time. -noted that patient has elevated blood pressure 214/113, patient known to be noncompliant with her medications. At this time, patient was offered her home medications hydralazine 100 mg, carvedilol 12.5 mg, nifedipine 60 mg, torsemide 40 mg -EKG and basic labs pending Of note, patient was possibly registered under the wrong medical record number? There are no previous records for this patient. However, patient has been seen here multiple times, she was discharged from the hospital couple of days ago. Registration working with the problem, maybe an IT problem Medications Administered Discontinued Medications Generic Name Dose Route Start Last Admin Trade Name Freq PRN Reason Stop Dose Admin Carvedilol 12.5 mg 10/29/23 23:46 10/30/23 00:58 Carvedilol 12.5 Mg Tablet PO 10/29/23 23:47 Not Given ONCE ONE Protocol Hydralazine HCl 100 mg 10/29/23 23:46 10/30/23 00:57 Hydralazine Hcl 50 Mg Tablet PO 10/29/23 23:47 Not Given ONCE ONE Protocol Labetalol HCl 200 mg 10/30/23 00:48 10/30/23 01:18 Labetalol Hcl 200 Mg Tablet PO 10/30/23 00:49 200 mg ONCE ONE Administration Protocol Nifedipine 60 mg 10/29/23 23:46 10/30/23 00:56 Nifedipine Er 60 Mg Tab.Er.24 PO 10/29/23 23:47 Not Given ONCE ONE Protocol Torsemide 40 mg 10/29/23 23:46 10/30/23 00:42 Torsemide 20 Mg Tablet PO 10/29/23 23:47 Not Given ONCE ONE Protocol Medical Decision Making Medical Decision Making MDM Narrative: -my interpretation of EKG, normal sinus rhythm, right bundle torsten broke, QTC 545, no EKG changes since her previous EKGs -patient refused taking her night medications, states that she took them prior to arrival. However, patient is known to be noncompliant with the medication. -patient was given p.o. labetalol 200 mg -my interpretation of labs: Hematology and chemistry at baseline. Today patient is due for dialysis -patient got p.o. labetalol approximately 5 minutes ago. -sign-out given to my colleague Dr. Rubalcava Differential Diagnosis Differential Diagnoses: The differential diagnosis associated with the presentation includes (Neuropathy, chronic bilateral lower extremity pain, no compliance with medications, chronic hypertension) Admission/Observation Consideration of admission/observation: Escalation of care including admission/observation considered (Given patient's blood pressure and history of noncompliance, observation was considered.) Lab Data MDM Lab Attestation statement: I reviewed the patient's lab results. 10/29/23 23:58 10/29/23 23:58 Labs: Lab Results 10/29/23 Range/Units 23:58 WBC 4.5 L (4.8-10.8) X10*3/uL RBC 2.94 L (4.20-5.50) X10*6/uL Hgb 8.8 L (12.0-16.0) g/dl Hct 27.6 L (37.0-47.0) % MCV 93.9 (80.0-98.0) fL MCH 29.9 (27.0-33.0) pg MCHC 31.9 (31.0-35.0) g/dl RDW 17.0 H (11.0-16.0) % Plt Count 152 L D (160-400) X10*3/uL MPV 11.1 (9.4-12.3) fL Immature Gran % (Auto) 0.2 (0.0-0.4) % Neut % (Auto) 75.4 H (45-73) % Lymph % (Auto) 10.4 L (20-40) % [place] % (Auto) 10.0 (2-11) % Eos % (Auto) 3.3 (0-4) % Baso % (Auto) 0.7 (0-2) % Lymph # (Auto) 0.5 L (1.2-4.9) X10*3/uL [place] # (Auto) 0.5 (0.1-1.2) X10*3/uL Eos # (Auto) 0.2 (0.0-0.4) X10*3/uL Baso # (Auto) 0.0 (0.0-0.2) X10*3/uL Abs Immat Gran (auto) 0.01 (0.00-0.03) X10*3/uL Absolute Neuts (auto) 3.4 (2.0-8.3) x10*3/uL Absolute Nucleated RBC 0.000 (0.0-0.012) X10*3/uL Nucleated RBC % (auto) 0.0 (0.0-0.2) /100WBC Sodium 138 (135-145) mmol/L Potassium 3.8 (3.3-5.1) mmol/L Chloride 104 (96-108) mmol/L Carbon Dioxide 21 L (22-29) mmol/L Anion Gap 17 (12-20) BUN 45 H (9-16) mg/dL Creatinine 6.93 H* (0.5-1.4) mg/dL Estim Creat Clear Calc 12.4 Estimated GFR 7 Random Glucose 131 H (60-115) mg/dL Calcium 8.6 D (8.4-10.2) mg/dL Troponin I High Sens 18.2 H (<3.5-17.0) ng/L Independent Interpretation I performed an independent interpretation of an: EKG Critical Care Time Critical Care Time Critical Care Time: Yes Total Critical Care Time: 60 Attestation: I have personally provided critical care time. Time includes review of lab data, radiology results, discussion with consultants, and monitoring for potential decompensation. Intervention performed as documented. Discharge Plan Discharge Clinical Impression: Chronic hypertension, Chronic leg pain Patient Disposition: Home, Self-Care Instructions: Chronic Pain (ED), Chronic Hypertension (ED) Additional Instructions: Please follow-up with your primary care physician tomorrow. If you have any worsening or new symptoms, please return to the emergency room or call 911 Prescriptions: No Action (DME) off loading boot Kit See Rx Instructions .Route Qty: 1 0RF Rx Instructions: As directed carvedilol 12.5 mg tablet 12.5 mg PO BID torsemide 20 mg tablet 40 mg PO BID Calcium Antacid 300 mg (750 mg) tablet,chewable 1 tab PO TIDWM nifedipine 60 mg tablet extended release 24hr 60 mg PO DAILY diphenhydramine HCl 12.5 mg/5 mL Elixir 25 mg PO BEDTIME doxycycline hyclate 100 mg tablet 100 mg PO BID Qty: 10 0RF hydralazine 50 mg Tablet 100 mg PO TID Qty: 90 2RF Protocol: Hold for SBP< HOLD for SBP < : 90 ondansetron 4 mg tablet,disintegrating 4 mg PO Q8H PRN (Reason: nausea and vomiting) Qty: 14 0RF oxycodone 5 mg tablet 5 mg PO Q6H PRN (Reason: pain, severe) Qty: 20 0RF Rx Instructions: Partial Fill upon patient request. Print Language: Vincentian
[2023-10-30 00:03] LABS: MANUAL DIFF FLAG NO
[2023-10-30 00:05] LABS: Basophils Percent Auto 0.7 % (0-2); Eosinophils Absolute Auto 0.2 X10*3/uL (0.0-0.4); Eosinophils Percent Auto 3.3 % (0-4); Hematocrit 27.6 % (37.0-47.0); Hemoglobin 8.8 g/dl (12.0-16.0); Imm Gran Abs Auto 0.01 X10*3/uL (0.00-0.03); Imm Gran Pct Auto 0.2 % (0.0-0.4); Lymphocytes Absolute Auto 0.5 X10*3/uL (1.2-4.9); Lymphocytes Percent Auto 10.4 % (20-40); Mean Corpuscular HGB Conc 31.9 g/dl (31.0-35.0); Mean Corpuscular Hemoglobin 29.9 pg (27.0-33.0); Mean Corpuscular Volume 93.9 fL (80.0-98.0); Mean Platelet Volume 11.1 fL (9.4-12.3); Monocytes Absolute Auto 0.5 X10*3/uL (0.1-1.2); Neutrophils Absolute Auto 3.4 x10*3/uL (2.0-8.3); Neutrophils Percent Auto 75.4 % (45-73); Platelet Count 152 X10*3/uL (160-400); Red Blood Count 2.94 X10*6/uL (4.20-5.50); White Blood Count 4.5 X10*3/uL (4.8-10.8)
[2023-10-30 00:23] LABS: Troponin-I High Sensitivity 18.2 ng/L (<3.5-17.0)
[2023-10-30 00:31] LABS: Anion Gap 17 (12-20); Blood Urea Nitrogen 45 mg/dL (9-16); Calcium 8.6 mg/dL (8.4-10.2); Carbon Dioxide 21 mmol/L (22-29); Chloride 104 mmol/L (96-108); Creatinine Clr Calc Pharmacy 12.4; Estimated Glomerular Filt Rate 7; Glucose Random 131 mg/dL (60-115); Potassium 3.8 mmol/L (3.3-5.1); Sodium 138 mmol/L (135-145)
[2023-10-30 01:18] VITALS: BP 217/110; PULSE 97
[2023-10-30] MEDS: Labetalol HCL 200 MG TABLET PO (01:18)
[2023-10-30] MEDS: hydrALAZINE HCl 20 MG/ML VIAL IVPUSH (01:34)
[2023-10-30 01:56] VITALS: BP 200/85; PULSE 96; RESP 17; TEMP 36.6; O2SAT 98
[2023-10-30] MEDS: diphenhydrAMINE HCL 50 MG/ML VIAL 25 MG IVPUSH (02:00)
[2023-10-30] MEDS: ondansetron HCL 4 MG/2 ML VIAL IVPUSH (02:00)
[2023-10-30] MEDS: HYDROmorphone HCl 2 MG/ML VIAL IVPUSH (02:01)
[2023-10-30 02:58] VITALS: BP 200/97; PULSE 97; RESP 18; O2SAT 100
[2023-10-30 03:09] VITALS: BP 192/91; PULSE 97
[2023-10-30] MEDS: Labetalol HCL 100 MG/20 ML VIAL 20 MG IVPUSH (03:09)
[2023-10-30 03:12] VITALS: BP 176/87; PULSE 87; RESP 18; O2SAT 97
--- NOTE | 2023-10-30 03:44 | PC.NURSE ---
pt is ready to go home, needs EMS for ride home
[2023-10-30 04:34] VITALS: BP 174/78; PULSE 92; RESP 20; TEMP 36.6; O2SAT 100
== END 2023-10-30 05:48 | disposition home or self-care (01) ==
PROVIDERS: Emergency Provider Emergency Medicine; PCP Nurse Practitioner Family
DX: M79.662 Pain in left lower leg (principal); M79.661 Pain in right lower leg; G89.29 Other chronic pain; I13.2 Hypertensive heart and chronic kidney disease with heart failure and with stage 5 chronic kidney disease, or end stage renal disease; I50.20 Unspecified systolic (congestive) heart failure; E11.22 Type 2 diabetes mellitus with diabetic chronic kidney disease; N18.6 End stage renal disease
CPT/HCPCS: 36415; 80048; 84484; 85025; 93005; 96374; 96375; 99284; J0360; J1170; J1200; J1920; J2405

== ENCOUNTER 2023-10-31 23:02 | Emergency (ER) | payer OTHER, SELFPAY ==
[2023-10-31 23:08] VITALS: BP 220/110; PULSE 70; O2SAT 98
[2023-10-31 23:11] VITALS: BP 214/119; PULSE 99; RESP 18; TEMP 36.8; O2SAT 98; BMI 29.7
--- NOTE | 2023-11-01 00:26 | ED.GENADULT ---
HPI - General Adult General Chief complaint: Extremity Injury, Lower Stated complaint: left leg infection Time Seen by Provider: 11/01/23 00:07 Source: patient Limitations: language barrier History of Present Illness ED Provider: Indu Moe PA-C HPI narrative: 33-year-old female with history of end-stage renal disease on dialysis Sunday/ but refuses to go on Saturdays, numerous hospital admissions secondary to nonadherence with her hemodialysis,?diabetes, diabetic retinopathy with associated blindness, peripheral vascular disease now status post bilateral trans metatarsal amputation, poorly controlled hypertension secondary to nonadherence with her medications, chronic respiratory failure on supplemental oxygen at home, heart failure with reduced ejection fraction, substance abuse, mood disorder, chronic pain presents with left lower extremity pain and paresthesia. Patient was just discharged from inpatient hospital admission on October 27 for left diabetic foot infection. She is here today secondary to pain in her lower extremity with paresthesia. Patient is actively asking for narcotics. Denies fever. Related Data Home Medications ?Medication ?Instructions ?Recorded ?Confirmed carvedilol 12.5 mg tablet 12.5 mg PO BID 06/05/23 11/02/23 torsemide 20 mg tablet 40 mg PO BID 06/05/23 11/02/23 calcium carbonate (Calcium Antacid) 1 tab PO TIDWM 08/28/23 11/02/23 diphenhydramine HCl 12.5 mg/5 mL 25 mg PO BEDTIME 10/08/23 11/02/23 oral elixir nifedipine 60 mg tablet,extended 60 mg PO DAILY 10/08/23 11/02/23 release 24 hr Previous Rx's ?Medication ?Instructions ?Recorded off loading boot #1 ea 03/14/23 hydralazine 50 mg tablet 100 mg PO TID #90 tabs 10/19/23 ondansetron 4 mg disintegrating 4 mg PO Q8H PRN nausea and 10/19/23 tablet vomiting #14 tabs oxycodone 5 mg tablet 5 mg PO Q6H PRN pain, severe #20 10/19/23 tabs Allergies Allergy/AdvReac Type Severity Reaction Status Date / Time morphine [MORPHINE] Allergy Intermediate Itching Verified 11/02/23 16:30 azithromycin [From Zithromax] Allergy Hives Verified 11/02/23 16:30 gabapentin Allergy Facial Verified 11/02/23 16:30 Swelling tramadol Allergy Facial Verified 11/02/23 16:30 Swelling vancomycin Allergy Anaphylaxis Verified 11/02/23 16:30 Review of Systems Review of Systems: Yes all other systems are reviewed and are negative Constitutional: Constitutional: Denies fever(s) Musculoskeletal: Musculoskeletal: Reports arthralgias Integumentary/Breasts: Skin/Breast: Reports non-healing lesions PMFSH Past Medical History Attestation statement: The following information was validated with the patient. Medical History Chronic foot ulcer Plantar ulcer of left foot Major depressive disorder, single episode, severe ESRD (end stage renal disease) Non-compliance with renal dialysis Hypertensive urgency MDD (major depressive disorder), recurrent episode MDD (major depressive disorder) Renal failure Foot ulcer CKD (chronic kidney disease) Hypertension Diabetic foot Hyperkalemia Vomiting Renal failure Hypertension Migraine Chronic pain ESRD on dialysis Non-compliance with renal dialysis Hypertension End-stage renal disease (ESRD) Gastroparesis Diabetic foot ulcer associated with type 2 diabetes mellitus Hypertensive emergency Diabetes ESRD needing dialysis Cardiomyopathy HFrEF (heart failure with reduced ejection fraction) Metabolic acidosis delivery delivered Anemia in chronic kidney disease (CKD) Anemia CKD (chronic kidney disease) Headache, migraine Abnormal finding on echocardiogram Elevated troponin Chest pain Acute worsening of stage 3 chronic kidney disease Generalized edema Sepsis Cellulitis Pleural effusion CHF (congestive heart failure) (~06/07/22) Tachycardia Atypical chest pain Bone infection PAD (peripheral artery disease) Severe anemia Cellulitis and abscess of foot DM foot ulcer Osteomyelitis Asthma Depression with anxiety Diabetic retinopathy Type 2 diabetes mellitus with hyperglycemia, with long-term current use of insulin Blind right eye Diabetes Back pain Surgical History Tubal ligation status Previous section Hx laparoscopic cholecystectomy Hx of surgical procedure (~09/11/23) 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 Family History Family History Mother Coronary artery disease Myocardial infarction Stroke Diabetes mellitus Father Myocardial infarction Social History Social History Household Members: Family 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 Housing: Apartment Do you presently have visiting nurse or other home services: No Unable to assess alcohol history related to: Unknown Alcohol intake: never 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 Patient Tobacco Use Status: Never used Tobacco e-Cigarette/Vaping Use: Never Used Second Hand Smoke Exposure: No Advance Directives Date on File: 09/04/23 service: No Current occupational status: unemployed and disabled Gender identity: Female Physical Exam ED Vital Signs: Vital Signs - 24 hr 10/31/23 23:11 11/01/23 01:07 11/01/23 01:07 Temperature 98.2 F Pulse Rate 99 Respiratory Rate 18 Blood Pressure 214/119 H 198/112 H 198/112 H Pulse Oximetry 98 Oxygen Delivery Method Room Air 11/01/23 01:08 11/01/23 01:08 11/01/23 01:29 Temperature 98.1 F Pulse Rate 98 98 Respiratory Rate 18 Blood Pressure 198/112 H 198/112 H 193/105 H Pulse Oximetry 98 Oxygen Delivery Method Room Air BMI result Body Mass Index 29.7 Const Other: Awake appears older than stated age Orientation/consciousness: patient oriented x3 Resp Effort & Inspection: normal respiratory effort Cardio Other: Normal peripheral perfusion, the limb is warm, dry, and sensation is intact with palpation that she pulls away from on exam Skin Other: Warm dry no rash Neuro General: patient oriented x3 and no focal motor deficits Extrem Other: Sensation intact over the left lower extremity, the dressing is clean and dry, appears newly dressed Psych Other: Somewhat cooperative in the ER Medications Administered Discontinued Medications Generic Name Dose Route Start Last Admin Trade Name Freq PRN Reason Stop Dose Admin Carvedilol 12.5 mg 11/01/23 00:29 11/01/23 01:08 Carvedilol 12.5 Mg Tablet PO 11/01/23 00:30 12.5 mg ONCE ONE Administration Protocol Furosemide 40 mg 11/01/23 00:29 11/01/23 01:08 Furosemide 40 Mg Tablet PO 11/01/23 00:30 40 mg ONCE ONE Administration Protocol Hydralazine HCl 100 mg 11/01/23 00:11/01/23 01:07 Hydralazine Hcl 50 Mg Tablet PO 11/01/23 00:30 100 mg ONCE ONE Administration Protocol Nifedipine 60 mg 11/01/23 00:29 11/01/23 01:07 Nifedipine Er 30 Mg Tab.Er.24 PO 11/01/23 00:30 60 mg ONCE ONE Administration Protocol Medical Decision Making Medical Decision Making MDM Narrative: 33-year-old female with history of end-stage renal disease on dialysis Sunday/ but refuses to go on Saturdays, numerous hospital admissions secondary to nonadherence with her hemodialysis,?diabetes, diabetic retinopathy with associated blindness, peripheral vascular disease now status post bilateral trans metatarsal amputation, poorly controlled hypertension secondary to nonadherence with her medications, chronic respiratory failure on supplemental oxygen at home, heart failure with reduced ejection fraction, substance abuse, mood disorder, chronic pain presents with left lower extremity pain and paresthesia. Patient was just discharged from inpatient hospital admission on October 27 for left diabetic foot infection. She is here today secondary to pain in her lower extremity with paresthesia. Patient is actively asking for narcotics. Denies fever. Problem: Nonadherence with medications for her various underlying comorbidities, end-stage renal, hypertension, diabetes, chronic pain History: Per patient I have considered the following differential diagnoses: Claudication, cellulitis, malingering, medication seeking behavior, arterial occlusion, DVT, Plan: Patient is not complaining of her foot, she is complaining of the left lower extremity, her exam is benign, she is neurovascularly intact, she is exhibiting medication seeking behaviors as she typically does. I am discharging now. She did not take her medications today in regard to her blood pressure, we will administer prior to the time of her discharge. Discharge Plan Discharge Clinical Impression: Diabetic foot infection Patient Disposition: Home, Self-Care Additional Instructions: I am placing your discharge instructions, from your inpatient admission, for you to review. Be sure to take your doxycycline as directed, a sure to take your other prescribed medications as directed. Follow up with your primary care provider, Genevieve Gtz MD [Primary Care Provider] - 1 Week Discharge Medications: New doxycycline hyclate 100 mg tablet 100 mg PO BID Qty: 10 0RF Continued (DME) off loading boot Kit See Rx Instructions .Route Qty: 1 0RF Rx Instructions: As directed carvedilol 12.5 mg tablet 12.5 mg PO BID torsemide 20 mg tablet 40 mg PO BID Calcium Antacid 300 mg (750 mg) tablet,chewable 1 tab PO TIDWM nifedipine 60 mg tablet extended release 24hr 60 mg PO DAILY diphenhydramine HCl 12.5 mg/5 mL Elixir 25 mg PO BEDTIME hydralazine 50 mg Tablet 100 mg PO TID Qty: 90 2RF Protocol: Hold for SBP< HOLD for SBP < : 90 ondansetron 4 mg tablet,disintegrating 4 mg PO Q8H PRN (Reason: nausea and vomiting) Qty: 14 0RF oxycodone 5 mg tablet 5 mg PO Q6H PRN (Reason: pain, severe) Qty: 20 0RF Rx Instructions: Partial Fill upon patient request. Discharge Orders: Discharge Order (Routine); Ordered 10/28/23 Ordered By: Tawny Taylor Diet: Advance to usual diet Activity on Discharge: As tolerated Stand Alone Forms: Patient Portal Discharge page Print Language: Bur[place]ian Care Plan Goals: complete antibiotics Prescriptions: No Action (DME) off loading boot Kit See Rx Instructions .Route Qty: 1 0RF Rx Instructions: As directed carvedilol 12.5 mg tablet 12.5 mg PO BID torsemide 20 mg tablet 40 mg PO BID Calcium Antacid 300 mg (750 mg) tablet,chewable 1 tab PO TIDWM nifedipine 60 mg tablet extended release 24hr 60 mg PO DAILY diphenhydramine HCl 12.5 mg/5 mL Elixir 25 mg PO BEDTIME hydralazine 50 mg Tablet 100 mg PO TID Qty: 90 2RF Protocol: Hold for SBP< HOLD for SBP < : 90 ondansetron 4 mg tablet,disintegrating 4 mg PO Q8H PRN (Reason: nausea and vomiting) Qty: 14 0RF oxycodone 5 mg tablet 5 mg PO Q6H PRN (Reason: pain, severe) Qty: 20 0RF Rx Instructions: Partial Fill upon patient request. Interventions: ED Discharge Assessment Last Done: 11/01/23 01:29 Discharge Date/Time: 11/01/23 01:32 Print Language: Bur[place]ian
[2023-11-01 01:07] VITALS: BP 198/112
[2023-11-01] MEDS: hydrALAZINE HCl 50 MG TABLET 100 MG PO (01:07)
[2023-11-01] MEDS: NIFEdipine ER 30 MG TAB.ER.24 60 MG PO (01:07)
[2023-11-01 01:08] VITALS: BP 198/112; PULSE 98
[2023-11-01] MEDS: Furosemide 40 MG TABLET PO (01:08)
[2023-11-01] MEDS: carvediloL 12.5 MG TABLET PO (01:08)
[2023-11-01 01:29] VITALS: BP 193/105; PULSE 98; RESP 18; TEMP 36.7; O2SAT 98
== END 2023-11-01 01:32 | disposition home or self-care (01) ==
PROVIDERS: Emergency Provider Emergency Medicine
DX: E11.621 Type 2 diabetes mellitus with foot ulcer (principal); L97.528 Non-pressure chronic ulcer of other part of left foot with other specified severity; B08.8 Other specified viral infections characterized by skin and mucous membrane lesions; E11.22 Type 2 diabetes mellitus with diabetic chronic kidney disease; I13.2 Hypertensive heart and chronic kidney disease with heart failure and with stage 5 chronic kidney disease, or end stage renal disease; I50.20 Unspecified systolic (congestive) heart failure; N18.6 End stage renal disease; Z99.2 Dependence on renal dialysis; Z91.158 Patient's noncompliance with renal dialysis for other reason; Z91.199 Patient's noncompliance with other medical treatment and regimen due to unspecified reason
CPT/HCPCS: 99283; 99284

== ENCOUNTER 2023-11-02 16:27 | Inpatient (IN) | payer OTHER, SELFPAY ==
[2023-11-02] VITALS (8 sets, daily range): BP systolic 155–188; BP diastolic 83–121; PULSE 88–96; RESP 16–20; TEMP 36.2–36.5; O2SAT 89–98; BMI 24.2
--- NOTE | ~2023-11-02 | XR_ITS ---
EXAMINATION: XR CHEST CLINICAL INFORMATION: Fluid overload COMPARISON: 10/25/2023 TECHNIQUE: Frontal view of the chest was obtained. FINDINGS: Right CVC tip projects over the right atrium. Low lung volumes. Clear lungs. No effusion or pneumothorax. Unchanged cardiomediastinal silhouette. XR/XR chest 1V IMPRESSION: No acute cardiopulmonary findings. Electronically signed by: Payal Mendoza MD 11/02/2023 07:51 PM EDT
--- NOTE | 2023-11-02 16:39 | PC.NURSE ---
per patient; she did not go to dialysys this week as her brother had a medical emergency and she was with him for the week
--- NOTE | 2023-11-02 17:01 | ECG_ITS ---
Test Reason : ABD PAIN Blood Pressure : / mmHG Vent. Rate : 095 BPM Atrial Rate : 095 BPM P-R Int : 166 ms QRS Dur : 146 ms QT Int : 430 ms P-R-T Axes : 032 -22 021 degrees QTc Int : 540 ms Normal sinus rhythm Possible Left atrial enlargement Right bundle branch block Abnormal ECG When compared with ECG of 29-OCT-2023 23:59, T wave inversion less evident in Anterior leads Referred By: Mazin Rubalcava Electronically Signed By:JULIÁN CANCINO
[2023-11-02 17:19] LABS: MANUAL DIFF FLAG NO
[2023-11-02 17:20] LABS: Basophils Percent Auto 0.4 % (0-2); Eosinophils Absolute Auto 0.2 X10*3/uL (0.0-0.4); Eosinophils Percent Auto 2.6 % (0-4); Hematocrit 24.7 % (37.0-47.0); Imm Gran Abs Auto 0.03 X10*3/uL (0.00-0.03); Imm Gran Pct Auto 0.4 % (0.0-0.4); Lymphocytes Absolute Auto 0.5 X10*3/uL (1.2-4.9); Mean Corpuscular HGB Conc 32.4 g/dl (31.0-35.0); Mean Corpuscular Hemoglobin 30.3 pg (27.0-33.0); Mean Corpuscular Volume 93.6 fL (80.0-98.0); Mean Platelet Volume 10.9 fL (9.4-12.3); Monocytes Absolute Auto 0.6 X10*3/uL (0.1-1.2); Monocytes Percent Auto 8.3 % (2-11); Neutrophils Absolute Auto 5.6 x10*3/uL (2.0-8.3); Neutrophils Percent Auto 81.3 % (45-73); Platelet Count 128 X10*3/uL (160-400); Red Blood Count 2.64 X10*6/uL (4.20-5.50); Red Cell Distribution Width 18.6 % (11.0-16.0); White Blood Count 6.9 X10*3/uL (4.8-10.8)
--- NOTE | 2023-11-02 17:23 | ED.GENADULT ---
HPI - General Adult General Chief complaint: General Medical Stated complaint: dialysis pt, htn, edema Time Seen by Provider: 11/02/23 16:52 Source: patient Mode of arrival: EMS Limitations: no limitations History of Present Illness ED Provider: mercedes CARRION narrative: Patient is 33 years old with end-stage renal disease on dialysis Tuesdays and , diabetic retinopathy with blindness, peripheral vascular disease status post bilateral metatarsal amputation poorly controlled hypertension mood disorder HFrEF missed her dialysis this week for family comes here as she feels swollen no nausea no vomiting patient does make very little urine Related Data Home Medications ?Medication ?Instructions ?Recorded ?Confirmed carvedilol 12.5 mg tablet 12.5 mg PO BID 06/05/23 11/02/23 torsemide 20 mg tablet 40 mg PO BID 06/05/23 11/02/23 calcium carbonate (Calcium Antacid) 1 tab PO TIDWM 08/28/23 11/02/23 diphenhydramine HCl 12.5 mg/5 mL 25 mg PO BEDTIME 10/08/23 11/02/23 oral elixir nifedipine 60 mg tablet,extended 60 mg PO DAILY 10/08/23 11/02/23 release 24 hr Previous Rx's ?Medication ?Instructions ?Recorded off loading boot #1 ea 03/14/23 hydralazine 50 mg tablet 100 mg PO TID #90 tabs 10/19/23 ondansetron 4 mg disintegrating 4 mg PO Q8H PRN nausea and 10/19/23 tablet vomiting #14 tabs oxycodone 5 mg tablet 5 mg PO Q6H PRN pain, severe #20 10/19/23 tabs Allergies Allergy/AdvReac Type Severity Reaction Status Date / Time morphine [MORPHINE] Allergy Intermediate Itching Verified 11/02/23 16:30 azithromycin [From Zithromax] Allergy Hives Verified 11/02/23 16:30 gabapentin Allergy Facial Verified 11/02/23 16:30 Swelling tramadol Allergy Facial Verified 11/02/23 16:30 Swelling vancomycin Allergy Anaphylaxis Verified 11/02/23 16:30 Review of Systems Review of Systems: Yes all other systems are reviewed and are negative PMFSH Past Medical History Medical History Chronic foot ulcer Plantar ulcer of left foot Major depressive disorder, single episode, severe ESRD (end stage renal disease) Non-compliance with renal dialysis Hypertensive urgency MDD (major depressive disorder), recurrent episode MDD (major depressive disorder) Renal failure Foot ulcer CKD (chronic kidney disease) Hypertension Diabetic foot Hyperkalemia Vomiting Renal failure Hypertension Migraine Chronic pain ESRD on dialysis Non-compliance with renal dialysis Hypertension End-stage renal disease (ESRD) Gastroparesis Diabetic foot ulcer associated with type 2 diabetes mellitus Hypertensive emergency Diabetes ESRD needing dialysis Cardiomyopathy HFrEF (heart failure with reduced ejection fraction) Metabolic acidosis delivery delivered Anemia in chronic kidney disease (CKD) Anemia CKD (chronic kidney disease) Headache, migraine Abnormal finding on echocardiogram Elevated troponin Chest pain Acute worsening of stage 3 chronic kidney disease Generalized edema Sepsis Cellulitis Pleural effusion CHF (congestive heart failure) (~06/07/22) Tachycardia Atypical chest pain Bone infection PAD (peripheral artery disease) Severe anemia Cellulitis and abscess of foot DM foot ulcer Osteomyelitis Asthma Depression with anxiety Diabetic retinopathy Type 2 diabetes mellitus with hyperglycemia, with long-term current use of insulin Blind right eye Diabetes Back pain Surgical History Tubal ligation status Previous section Hx laparoscopic cholecystectomy Hx of surgical procedure (~09/11/23) 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 Family History Family History Mother Coronary artery disease Myocardial infarction Stroke Diabetes mellitus Father Myocardial infarction Social History Social History Household Members: Family 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 Housing: Apartment Do you presently have visiting nurse or other home services: No Unable to assess alcohol history related to: Unknown Alcohol intake: never 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 Patient Tobacco Use Status: Never used Tobacco e-Cigarette/Vaping Use: Never Used Second Hand Smoke Exposure: No Advance Directives Date on File: 09/04/23 service: No Current occupational status: unemployed and disabled Gender identity: Female Physical Exam ED Vital Signs: Vital Signs - 24 hr 11/02/23 16:41 11/02/23 17:26 11/02/23 18:29 Temperature 97.2 F 97.6 F Pulse Rate 96 94 Respiratory Rate 20 16 Blood Pressure 155/91 H 167/93 H 167/93 H Pulse Oximetry 97 97 Oxygen Delivery Method Room Air Room Air 11/02/23 18:56 11/02/23 19:55 Temperature 97.7 F Pulse Rate 90 89 Respiratory Rate 18 17 Blood Pressure 159/86 H 188/104 H Pulse Oximetry 96 Oxygen Delivery Method Room Air BMI result Body Mass Index 24.2 Appearance: Alert. Legally blind No acute distress. Edematous Eyes: No pallor or icterus ENT: Pharynx normal. Oral Mucosa moist Neck: Normal inspection. Neck supple. CVS: Normal heart rate and rhythm. Pulses normal. Respiratory: No respiratory distress. Equal air entry bilateral, no wheezing/rales/rhonchi Abdomen: Soft and nontender. Bowel sounds are present, no mass palpable, no CVA tenderness Skin: Skin warm and dry. Normal skin color. Normal skin turgor. Extremities: 2+ lower extremity edema. No calf tenderness bilateral metatarsal amputation Neuro: Alert and oriented Medications Administered Generic Name Dose Route Start Last Admin Trade Name Freq PRN Reason Stop Dose Admin Heparin Sodium (Porcine) 5,000 unit 11/02/23 21:00 11/02/23 22:58 Heparin Sodium,Porcine 5,000 Unit/Ml Vial SUBCUT Not Given Q8H [facility] Insulin Human Lispro 0 unit 11/02/23 21:00 11/02/23 22:58 Insulin Lispro 100 Unit/Ml 3 Ml Vial SUBCUT Not Given QIDACHS [facility] Protocol Sodium Chloride 3 ml 11/03/23 00:00 11/03/23 01:21 0.9 % Sodium Chloride Flush 3 Ml Syringe IVFLUSH Not Given QSHIFT VASILE Discontinued Medications Generic Name Dose Route Start Last Admin Trade Name Freq PRN Reason Stop Dose Admin Furosemide 100 mg 11/02/23 18:10 11/02/23 18:29 Furosemide 100 Mg/10 Ml Vial IVPUSH 11/02/23 18:11 100 mg ONCE ONE Administration Protocol Hydromorphone HCl 1 mg 11/02/23 19:56 11/02/23 20:04 Hydromorphone Hcl 1 Mg/Ml Syringe IVPUSH 11/02/23 19:57 1 mg ONCE ONE Administration Protocol Ondansetron HCl 4 mg 11/02/23 19:56 11/02/23 20:04 Ondansetron Hcl 4 Mg/2 Ml Vial IVPUSH 11/02/23 19:57 4 mg ONCE ONE Administration Sodium Zirconium Cyclosilicate 10 gm 11/02/23 17:21 11/02/23 18:56 Sodium Zirconium Cyclosilicate 10 Gm Powd.Pack PO 11/02/23 17:22 10 gm ONCE ONE Administration Medical Decision Making Medical Decision Making [facility] Narrative: Patient is 33 years old with end-stage renal disease on dialysis Tuesdays and , diabetic retinopathy with blindness, peripheral vascular disease status post bilateral metatarsal amputation poorly controlled hypertension mood disorder HFrEF missed her dialysis this week comes here for fluid overload unable to get dialysis tomorrow will admit patient for hemodialysis in a.m. Differential Diagnosis Differential Diagnoses: The differential diagnosis associated with the presentation includes Fluid overload/ end-stage renal disease, hypertension Admission/Observation Consideration of admission/observation: Escalation of care including admission/observation considered Consult Healthcare Provider Management of the patient was discussed with: Hospitalist Lab Data [facility] Lab Attestation statement: I reviewed the patient's lab results. 11/02/23 17:14 11/02/23 17:14 Labs: Lab Results 11/02/23 Range/Units 17:14 WBC 6.9 (4.8-10.8) X10*3/uL RBC 2.64 L (4.20-5.50) X10*6/uL Hgb 8.0 L (12.0-16.0) g/dl Hct 24.7 L (37.0-47.0) % MCV 93.6 (80.0-98.0) fL MCH 30.3 (27.0-33.0) pg MCHC 32.4 (31.0-35.0) g/dl RDW 18.6 H (11.0-16.0) % Plt Count 128 L (160-400) X10*3/uL MPV 10.9 (9.4-12.3) fL Immature Gran % (Auto) 0.4 (0.0-0.4) % Neut % (Auto) 81.3 H (45-73) % Lymph % (Auto) 7.0 L (20-40) % [place] % (Auto) 8.3 (2-11) % Eos % (Auto) 2.6 (0-4) % Baso % (Auto) 0.4 (0-2) % Lymph # (Auto) 0.5 L (1.2-4.9) X10*3/uL [place] # (Auto) 0.6 (0.1-1.2) X10*3/uL Eos # (Auto) 0.2 (0.0-0.4) X10*3/uL Baso # (Auto) 0.0 (0.0-0.2) X10*3/uL Abs Immat Gran (auto) 0.03 (0.00-0.03) X10*3/uL Absolute Neuts (auto) 5.6 (2.0-8.3) x10*3/uL Absolute Nucleated RBC 0.000 (0.0-0.012) X10*3/uL Nucleated RBC % (auto) 0.0 (0.0-0.2) /100WBC Sodium 133 L (135-145) mmol/L Potassium 5.0 D (3.3-5.1) mmol/L Chloride 106 (96-108) mmol/L Carbon Dioxide 14 L (22-29) mmol/L Anion Gap 18 (12-20) BUN 68 H (9-16) mg/dL Creatinine 9.09 H* (0.5-1.4) mg/dL Estim Creat Clear Calc 8.1 Estimated GFR 5 Random Glucose 183 H (60-115) mg/dL Calcium 7.9 L D (8.4-10.2) mg/dL Total Bilirubin 1.0 (0.0-1.0) mg/dL AST 18 (5-31) U/L ALT 11 (0-31) U/L Alkaline Phosphatase 142 H (39-117) U/L Total Protein 8.0 (6.5-8.0) g/dL Albumin 3.5 (3.5-5.0) g/dL Independent Interpretation I performed an independent interpretation of an: EKG Interpretation: Normal sinus rhythm right bundle-branch block heart rate 95 beats per minute normal intervals normal axis no acute ST T wave changes Discharge Plan Discharge Clinical Impression: End-stage renal disease Patient Disposition: Admitted As Inpatient Interventions: Admission Worksheet (ED) Last Done: 11/02/23 23:41 Discharge Date/Time: 11/03/23 00:32
[2023-11-02 17:51] LABS: Alanine Aminotransferase 11 U/L (0-31); Albumin Level 3.5 g/dL (3.5-5.0); Alkaline Phosphatase 142 U/L (39-117); Anion Gap 18 (12-20); Aspartate Amino Transferase 18 U/L (5-31); Blood Urea Nitrogen 68 mg/dL (9-16); Calcium 7.9 mg/dL (8.4-10.2); Carbon Dioxide 14 mmol/L (22-29); Chloride 106 mmol/L (96-108); Creatinine Clr Calc Pharmacy 8.1; Estimated Glomerular Filt Rate 5; Glucose Random 183 mg/dL (60-115); Sodium 133 mmol/L (135-145)
[2023-11-02] MEDS: Furosemide 100 MG/10 ML VIAL IVPUSH (18:29)
[2023-11-02] MEDS: Sodium Zirconium Cyclosilicate 10 GM POWD.PACK PO (18:56)
[2023-11-02] MEDS: ondansetron HCL 4 MG/2 ML VIAL IVPUSH (20:04)
[2023-11-02] MEDS: HYDROmorphone HCl 1 MG/ML SYRINGE IVPUSH (20:04)
--- NOTE | 2023-11-02 20:40 | P.HPHOSP_ITS ---
History of Present Illness Date of Service: 11/02/23 Chief Complaint: sob 33-year-old female with a PMH significant for?ESRD on HD (refuses to go on Saturdays), multiple hospitalizations due to noncompliance with hemodialysis, diabetic retinopathy with blindness, peripheral vascular disease (s/p bilat transmetatarsal amputation), poorly controlled hypertension due to noncompliance with medications, chronic respiratory failure on supplemental oxygen, HFrEF, mood disorder, and chronic pain with opiate seeking behavior presented with sob. patient missed last 2 HD sessions. reports worsening edema and sob, worse on exertion. in ED on room air, labs with acute metabolic acidosis. Review of Systems 2 Review of Systems: Yes all other systems are reviewed and are negative [facility] Medical History Chronic foot ulcer Plantar ulcer of left foot Major depressive disorder, single episode, severe ESRD (end stage renal disease) Non-compliance with renal dialysis Hypertensive urgency MDD (major depressive disorder), recurrent episode MDD (major depressive disorder) Renal failure Foot ulcer CKD (chronic kidney disease) Hypertension Diabetic foot Hyperkalemia Vomiting Renal failure Hypertension Migraine Chronic pain ESRD on dialysis Non-compliance with renal dialysis Hypertension End-stage renal disease (ESRD) Gastroparesis Diabetic foot ulcer associated with type 2 diabetes mellitus Hypertensive emergency Diabetes ESRD needing dialysis Cardiomyopathy HFrEF (heart failure with reduced ejection fraction) Metabolic acidosis delivery delivered Anemia in chronic kidney disease (CKD) Anemia CKD (chronic kidney disease) Headache, migraine Abnormal finding on echocardiogram Elevated troponin Chest pain Acute worsening of stage 3 chronic kidney disease Generalized edema Sepsis Cellulitis Pleural effusion CHF (congestive heart failure) (~06/07/22) Tachycardia Atypical chest pain Bone infection PAD (peripheral artery disease) Severe anemia Cellulitis and abscess of foot DM foot ulcer Osteomyelitis Asthma Depression with anxiety Diabetic retinopathy Type 2 diabetes mellitus with hyperglycemia, with long-term current use of insulin Blind right eye Diabetes Back pain Family History Mother Coronary artery disease Myocardial infarction Stroke Diabetes mellitus Father Myocardial infarction Surgical History Tubal ligation status Previous section Hx laparoscopic cholecystectomy Hx of surgical procedure (~09/11/23) 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 Social History Household Members: Family Household Members Other:: sister Housing: Apartment Do you presently have visiting nurse or other home services: Yes Unable to assess alcohol history related to: Unknown Alcohol intake: never 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 Patient Tobacco Use Status: Never used Tobacco Smoked in Last 30 Days: No e-Cigarette/Vaping Use: Never Used Second Hand Smoke Exposure: No Use of substances other than those prescribed or required for medical reasons: No Advance Directives: Yes Advance Directives on File: Yes Advance Directives Date on File: 09/04/23 Do you have a plan to hurt others: No Plan service: No Current occupational status: unemployed and disabled Gender identity: Female Meds Allergies Allergy/AdvReac Type Severity Reaction Status Date / Time morphine [MORPHINE] Allergy Intermediate Itching Verified 11/02/23 16:30 azithromycin [From Zithromax] Allergy Hives Verified 11/02/23 16:30 gabapentin Allergy Facial Verified 11/02/23 16:30 Swelling tramadol Allergy Facial Verified 11/02/23 16:30 Swelling vancomycin Allergy Anaphylaxis Verified 11/02/23 16:30 Active Medications: Current Medications Acetaminophen (Acetaminophen 325 Mg Tablet) 650 mg PO Q6H PRN PRN Reason: Pain, Mild (Pain Scale 1-3), fever or headache Calcium Carbonate (Calcium Carbonate 750 Mg Tab.Chew) 750 mg PO Q4H PRN PRN Reason: Heartburn Heparin Sodium (Porcine) (Heparin Sodium,Porcine 5,000 Unit/Ml Vial) 5,000 unit SUBCUT Q8H VASILE Magnesium Hydroxide (Milk Of Magnesia 30 Ml Oral.Susp) 30 ml PO DAILY PRN PRN Reason: Constipation Melatonin (Melatonin 3 Mg Tablet) 6 mg PO BEDTIME PRN PRN Reason: Insomnia Sodium Chloride (0.9 % Sodium Chloride Flush 3 Ml Syringe) 3 ml IVFLUSH QSHIFT [facility] Home Medications ?Medication ?Instructions ?Recorded ?Confirmed ?Last Taken ?Type carvedilol 12.5 mg tablet 12.5 mg PO BID 06/05/23 10/25/23 10/17/23 History torsemide 20 mg tablet 40 mg PO BID 06/05/23 10/25/23 10/17/23 History calcium carbonate (Calcium Antacid) 1 tab PO TIDWM 08/28/23 10/25/23 10/17/23 History diphenhydramine HCl 12.5 mg/5 mL 25 mg PO BEDTIME 10/08/23 10/25/23 10/17/23 History oral elixir nifedipine 60 mg tablet,extended 60 mg PO DAILY 10/08/23 10/25/23 10/17/23 History release 24 hr Physical Exam 2 Vital Signs and Narrative: Vital Signs: Last Vital Signs Temp 97.7 F 11/02/23 19:55 Pulse 89 11/02/23 19:55 Resp 17 11/02/23 19:55 BP 188/104 H 11/02/23 19:55 Pulse Ox 96 11/02/23 19:55 O2 Del Method Room Air 11/02/23 19:55 BMI result Body Mass Index 24.2 General: AOx3, in no acute distress Resp: CTA bilaterally CVS: S1, S2, regulr rhythym, tachycardic GI: +BS, NT, no distention Skin: Warm, dry Neuro: Cranial nerves II-XII grossly intact bilaterally. Motor grossly intact bilaterally Extremities: Chronic nonhealing wounds and postoperative changes bilaterally. Wound on right heel with foul-smelling and purulent discharge. As pictured below. Results Labs 11/02/23 17:14 11/02/23 17:14 Labs: Laboratory Results - last 24 hr 11/02/23 17:14 MCV 93.6 MCH 30.3 MCHC 32.4 RDW 18.6 H Plt Count 128 L MPV 10.9 Immature Gran % (Auto) 0.4 Neut % (Auto) 81.3 H Lymph % (Auto) 7.0 L [place] % (Auto) 8.3 Eos % (Auto) 2.6 Baso % (Auto) 0.4 Lymph # (Auto) 0.5 L [place] # (Auto) 0.6 Eos # (Auto) 0.2 Baso # (Auto) 0.0 Abs Immat Gran (auto) 0.03 Absolute Neuts (auto) 5.6 Absolute Nucleated RBC 0.000 Nucleated RBC % (auto) 0.0 Anion Gap 18 Estim Creat Clear Calc 8.1 Estimated GFR 5 Random Glucose 183 H Calcium 7.9 L D Total Bilirubin 1.0 AST 18 ALT 11 Alkaline Phosphatase 142 H Total Protein 8.0 Albumin 3.5 Imaging Radiologist's Impressions: Impressions Chest X-Ray 11/02/23 17:43 IMPRESSION: No acute cardiopulmonary findings. Electronically signed by: Payal Mendoza MD 11/02/2023 07:51 PM EDT RP Assessment and Plan (1) Chronic foot ulcer: Status: Acute Plan 33-year-old female with a PMH significant for?ESRD on HD Sun/Sun (refuses to go on Saturdays), multiple hospitalizations due to noncompliance with hemodialysis, diabetic retinopathy with blindness, peripheral vascular disease (s/p bilat transmetatarsal amputation), poorly controlled hypertension due to noncompliance with medications, chronic respiratory failure on supplemental oxygen, HFrEF, mood disorder, and chronic pain with opiate seeking behavior presented with sob due to missed HD. Shortness of breath due to missed hemodialysis and patient with end-stage renal disease and noncompliance Hemodialysis, nephro eval Hypertension Coreg, nifedipine, hydralazine Chronic systolic CHF Continue maintenance diuretics, Coreg DM insulin DVT prophylaxis on heparin subQ Full code Patient requiring hemodialysis therefore will need at least 2 midnights inpatient Quality Stroke Does the patient have a stroke diagnosis?: No VTE Prior VTE?: No VTE Risk Level:: Medical - moderate - high VTE Device Contraindication: Treatment Not Indicated VTE Drug Contraindication: N/A - Med Ordered
--- NOTE | 2023-11-02 21:13 | PHA.MEDREC ---
Pharmacy Consult ? Medication Reconciliation Pharmacy has completed the medication reconciliation.Patient was just discharged 10/08/23 , 10/17/23, and 10/25/23 patient not very utilized claims and discharge packet to confirm med list.
--- NOTE | 2023-11-02 21:18 | PHA.MEDREC ---
Addendum entered by Ashvin Ramey [facility] 11/02/23 21:24: Med rec checked by [facility] Original Note: Pharmacy Consult ? Medication Reconciliation Pharmacy has completed the medication reconciliation. Patient was just discharged 10/08/23 , 10/17/23, and 10/25/23 patient not very compliant. Utilized claims and discharge packet to confirm med list.
[2023-11-02 21:33] LABS: Glucose, Whole Blood 99 mg/dL (60-115)
[2023-11-03] VITALS (10 sets, daily range): BP systolic 123–199; BP diastolic 63–106; PULSE 69–108; RESP 14–22; TEMP 36–36.8; O2SAT 89–95; BMI 32.4
--- NOTE | 2023-11-03 02:19 | PC.NURSE ---
Addendum entered by Mona Yoo RN 11/03/23 05:47: Pt refused her Heparin shot and lab draws. Foot dressing due to be changed as per pt, pt used Silver alginate at home, dressing changed , 3 areas of ulcer on the left foot noted, left heel wound has slough and the 2 ulcers are dry and crusting, right foot has 2 areas of ulcers which are raw, granulating and crusting on the wound edge. Original Note: Pt arrived from the ED at 0024 pr stretcher to rm 363, alert and oriented, w/ IVline g 22 on the left neck , when flushed, noted cannula as [facility] out and bulging, IV removed and tolerated, Cannula was intact, still c/o bilat foot pain going up to her back, bilat foot dressing CDI, pt also claimed having SOB and requested for her O2, LSC, O2 sat on the high 90s, O2 via NC provided, pt also requested for pain med, pt was offered prn Oxycodone but pt refused claimed it doesn't work, Also BP 189/106, Dr. Cavazos was notified, no changes on meds made, pt was updated, Permacath on the right upper chest intact, dressing intact, site benign.
[2023-11-03 07:37] LABS: Glucose, Whole Blood 72 mg/dL (60-115)
[2023-11-03] MEDS: NIFEdipine ER 60 MG TAB.ER.24 PO (07:44)
[2023-11-03] MEDS: carvediloL 12.5 MG TABLET PO (07:46)
[2023-11-03] MEDS: Torsemide 20 MG TABLET 40 MG PO (07:46)
[2023-11-03] MEDS: hydrALAZINE HCl 50 MG TABLET 100 MG PO (07:47)
[2023-11-03] MEDS: 0.9 % Sodium Chloride Flush 3 ML SYRINGE IVFLUSH ×2 (07:47→23:36)
[2023-11-03] MEDS: HYDROmorphone HCl 1 MG/ML SYRINGE IVPUSH ×2 (10:34→17:42)
[2023-11-03 11:26] LABS: Glucose, Whole Blood 99 mg/dL (60-115)
--- NOTE | 2023-11-03 11:39 | PC.NURSE ---
Pt. is resistive to care, and demanding, picks and chose the care. Refusing care unless given what she wants e.g IV Diuladid for blood work and so forth.
--- NOTE | 2023-11-03 12:03 | P.PNIM_ITS ---
Subjective Subjective Date of Service: 11/04/23 Interval History: Complaining of leg pain requesting for pain medications, missed hemodialysis since last discharge 10/27 due to family emergency as per patient, presented with shortness of breath feels a little better, Treated in ED with torsemide, IV Lasix and lokelma. Review of Systems All other system reviewed and are negative. Physical Exam 2 Vital Signs: Vital Signs: Last Vital Signs Temp 98.1 F 11/03/23 07:09 Pulse 88 11/03/23 07:09 Resp 18 11/03/23 10:34 BP 199/103 H 11/03/23 07:09 Pulse Ox 95 11/03/23 07:09 O2 Del Method Nasal Cannula 11/03/23 07:09 O2 Flow Rate 2 11/03/23 07:09 BMI result Body Mass Index 32.4 Const: Other: General awake alert x3, in no acute distress. Neck no JVD. CVS regular rate rhythm, Respiratory lungs clear to auscultation, no respiratory distress, no wheeze, no rhonchi. Gastrointestinal abdomen soft, non tender, bowel sounds audible Extremities right TMA wound well healed, heel wound with scant foul drainage Neuro non focal Objective Data Active Medications Acetaminophen (Acetaminophen 325 Mg Tablet) 650 mg PO Q6H PRN PRN Reason: Pain, Mild (Pain Scale 1-3), fever or headache Calcium Carbonate (Calcium Carbonate 750 Mg Tab.Chew) 750 mg PO Q4H PRN PRN Reason: Heartburn Carvedilol (Carvedilol 12.5 Mg Tablet) 12.5 mg PO BID COUNTS INCLUDE 234 BEDS AT THE [facility]; Protocol Last Admin: 11/03/23 07:46 Dose: 12.5 mg Documented By: RUBA Diphenhydramine HCl (Diphenhydramine Hcl 12.5 Mg/5 Ml Liquid) 25 mg PO BEDTIME COUNTS INCLUDE 234 BEDS AT THE [facility] Glucose (Glucose Gel 15 Gm Gel..Gram.) 15 gm PO Q15M PRN; Protocol PRN Reason: per Hypoglycemia Standing Ord. Heparin Sodium (Porcine) (Heparin Sodium,Porcine 5,000 Unit/Ml Vial) 5,000 unit SUBCUT Q8H COUNTS INCLUDE 234 BEDS AT THE [facility] Last Admin: 11/03/23 05:22 Dose: Not Given Documented By: OLGA Non-Admin Reason: Patient Refused Hydralazine HCl (Hydralazine Hcl 50 Mg Tablet) 100 mg PO TID COUNTS INCLUDE 234 BEDS AT THE [facility]; Protocol Last Admin: 11/03/23 07:47 Dose: 100 mg Documented By: RUBA Dextrose (D10) 250 mls @ 750 mls/hr IV Q15M PRN; Protocol PRN Reason: per Hypoglycemia Standing Ord. Insulin Human Lispro (Insulin Lispro 100 Unit/Ml 3 Ml Vial) 0 unit SUBCUT QIDACHS COUNTS INCLUDE 234 BEDS AT THE [facility]; Protocol Last Admin: 11/03/23 11:30 Dose: Not Given Documented By: RUBA Non-Admin Reason: No Insulin Coverage Magnesium Hydroxide (Milk Of Magnesia 30 Ml Oral.Susp) 30 ml PO DAILY PRN PRN Reason: Constipation Melatonin (Melatonin 3 Mg Tablet) 6 mg PO BEDTIME PRN PRN Reason: Insomnia Nifedipine (Nifedipine Er 60 Mg Tab.Er.24) 60 mg PO DAILY COUNTS INCLUDE 234 BEDS AT THE [facility]; Protocol Last Admin: 11/03/23 07:44 Dose: 60 mg Documented By: RUBA Ondansetron HCl (Ondansetron Hcl 4 Mg/2 Ml Vial) 4 mg IVPUSH Q6H PRN PRN Reason: Nausea and Vomiting Oxycodone HCl (Oxycodone Hcl Immed Release 5 Mg Tablet) 5 mg PO Q6H PRN PRN Reason: Pain, Moderate(Pain Scale 4-6) Sodium Chloride (0.9 % Sodium Chloride Flush 3 Ml Syringe) 3 ml IVFLUSH [facility] Last Admin: 11/03/23 07:47 Dose: 3 ml Documented By: RUBA Torsemide (Torsemide 20 Mg Tablet) 40 mg PO BIDWM COUNTS INCLUDE 234 BEDS AT THE [facility]; Protocol Last Admin: 11/03/23 07:46 Dose: 40 mg Documented By: RUBA Labs 11/03/23 13:01 11/03/23 22:23 Labs: Laboratory Results - last 24 hr 11/02/23 11/02/23 11/03/23 17:14 21:30 07:13 MCV 93.6 MCH 30.3 MCHC 32.4 RDW 18.6 H Plt Count 128 L MPV 10.9 Immature Gran % (Auto) 0.4 Neut % (Auto) 81.3 H Lymph % (Auto) 7.0 L Hughes % (Auto) 8.3 Eos % (Auto) 2.6 Baso % (Auto) 0.4 Lymph # (Auto) 0.5 L Hughes # (Auto) 0.6 Eos # (Auto) 0.2 Baso # (Auto) 0.0 Abs Immat Gran (auto) 0.03 Absolute Neuts (auto) 5.6 Absolute Nucleated RBC 0.000 Nucleated RBC % (auto) 0.0 Anion Gap 18 Estim Creat Clear Calc 8.1 Estimated GFR 5 POC Glucose 99 72 Random Glucose 183 H Calcium 7.9 L D Total Bilirubin 1.0 AST 18 ALT 11 Alkaline Phosphatase 142 H Total Protein 8.0 Albumin 3.5 11/03/23 11:13 MCV MCH MCHC RDW Plt Count MPV Immature Gran % (Auto) Neut % (Auto) Lymph % (Auto) Hughes % (Auto) Eos % (Auto) Baso % (Auto) Lymph # (Auto) Hughes # (Auto) Eos # (Auto) Baso # (Auto) Abs Immat Gran (auto) Absolute Neuts (auto) Absolute Nucleated RBC Nucleated RBC % (auto) Anion Gap Estim Creat Clear Calc Estimated GFR POC Glucose 99 Random Glucose Calcium Total Bilirubin AST ALT Alkaline Phosphatase Total Protein Albumin Assessment and Plan (1) Chronic foot ulcer: Status: Acute (2) Chronic kidney disease: Status: Acute (3) Chronic ulcer of left foot due to diabetes mellitus: Status: Acute (4) Chronic ulcer of right foot due to diabetes mellitus: Status: Acute Plan 33-year-old female with a PMH significant for?ESRD on HD (refuses to go on Saturdays), multiple hospitalizations due to noncompliance with hemodialysis, diabetic retinopathy with blindness, peripheral vascular disease (s/p bilat transmetatarsal amputation), poorly controlled hypertension due to noncompliance with medications, chronic respiratory failure on supplemental oxygen, HFrEF, mood disorder, and chronic pain with opiate seeking behavior presented with sob due to missed HD. Shortness of breath due to missed hemodialysis with end-stage renal disease and noncompliance Continue Hemodialysis, Nephro consult Hypertension Elevated blood pressure due to noncompliance, continue home medications Coreg, nifedipine, hydralazine and torsemide Chronic systolic CHF Continue maintenance diuretics, Coreg Chronic pain disorder, continue oxycodone, complaining of severe left leg pain give 1 dose of IV Dilaudid, recommend outpatient PCP follow-up for pain management. DM not on home medication Blood sugars stable, continue insulin sliding scale DVT prophylaxis on heparin subQ Full code Patient will require continued inpatient hospitalization for hemodialysis and close blood pressure monitoring . Quality Stroke Does the patient have a stroke diagnosis?: No VTE Prior VTE?: No VTE Risk Level:: Medical - moderate - high VTE Device Contraindication: Treatment Not Indicated VTE Drug Contraindication: N/A - Med Ordered
[2023-11-03 13:22] LABS: Hematocrit 23.8 % (37.0-47.0); Hemoglobin 7.7 g/dl (12.0-16.0); Mean Corpuscular HGB Conc 32.4 g/dl (31.0-35.0); Mean Corpuscular Hemoglobin 30.2 pg (27.0-33.0); Mean Corpuscular Volume 93.3 fL (80.0-98.0); Mean Platelet Volume 12.1 fL (9.4-12.3); Platelet Count 115 X10*3/uL (160-400); Red Blood Count 2.55 X10*6/uL (4.20-5.50); Red Cell Distribution Width 18.6 % (11.0-16.0); White Blood Count 4.3 X10*3/uL (4.8-10.8)
[2023-11-03 13:35] LABS: Anion Gap 16 (12-20); Blood Urea Nitrogen 69 mg/dL (9-16); Calcium 8.1 mg/dL (8.4-10.2); Carbon Dioxide 17 mmol/L (22-29); Chloride 103 mmol/L (96-108); Creatinine Clr Calc Pharmacy 9.8; Estimated Glomerular Filt Rate 5; Glucose Fasting 95 mg/dL (60-99); Sodium 131 mmol/L (135-145)
--- NOTE | 2023-11-03 15:35 | MHC.CM.PN ---
PT LIVES WITH HER SISTER WHO IS HER FT [employer] PT IS SCHEDULED TO ATTEND HD AT [facility] PT USES A WHEEL CHAIR FOR MOBILITY HCP ON FILE PCP: ARMANI CHATMAN IMM DELIVERED DCP: [facility] [employer] [employer] SISTER TO TRANSPORT
--- NOTE | 2023-11-03 16:27 | PC.NURSE ---
Dialysis Nurse called stated pt. wants pain medicine, Oxycodone and Tylenol offered offered but pt. refused stated she wants IV Diuladid which was ordered earlier and given as a one time order. Pt. came back to the floor demanding IV pain meds only, refusing to have her blood sugar checks and refusing vitals to be taken. Education provided about letting the staff care and providing treatment but pt. stated she did not care, she only wants IV pain meds. updated about the situation.
--- NOTE | 2023-11-03 16:32 | PC.NURSE ---
Per Dialysis Nurse, Removed 2.9kg pt dc tx ama after telling her only medication available was oxycodone
--- NOTE | 2023-11-03 16:35 | PC.NURSE ---
Pt. sitting at the edge of the bed with her legs dangling, refused to sit completely in bed for safety, bed alarm on.
--- NOTE | 2023-11-03 17:49 | PC.NURSE ---
IV Diualadid given, pt. still refused vital signs, blood sugar and meds.
[2023-11-03] MEDS: Glucose Gel 15 GM GEL..GRAM. PO (19:56)
[2023-11-03] MEDS: Dextrose 10 % 250 ML 750 ML IV (20:11)
[2023-11-03 20:13] LABS: Glucose, Whole Blood 46 mg/dL (60-115)
[2023-11-03 20:13] LABS: Glucose, Whole Blood 43 mg/dL (60-115)
[2023-11-03 20:35] LABS: Glucose, Whole Blood 181 mg/dL (60-115)
[2023-11-03] MEDS: ondansetron HCL 4 MG/2 ML VIAL IVPUSH (20:38)
[2023-11-03 22:17] LABS: Glucose, Whole Blood 80 mg/dL (60-115)
[2023-11-03 22:31] LABS: VBG Base Excess -0.4 mmol/L; VBG HCO3 22 mmol/L (22-26); VBG pCO2 30 mmHg; VBG pH 7.47 (7.32-7.43); VBG pO2 54 mmHg
[2023-11-03 22:32] LABS: Venous Blood Gas Refer to POC result
[2023-11-03 22:44] LABS: Anion Gap 19 (12-20); Blood Urea Nitrogen 43 mg/dL (9-16); Calcium 8.5 mg/dL (8.4-10.2); Carbon Dioxide 19 mmol/L (22-29); Chloride 97 mmol/L (96-108); Estimated Glomerular Filt Rate 7; Glucose Random 83 mg/dL (60-115); Potassium 4.4 mmol/L (3.3-5.1); Sodium 131 mmol/L (135-145)
[2023-11-03 23:02] LABS: Glucose, Whole Blood 110 mg/dL (60-115)
[2023-11-03 23:46] LABS: Glucose, Whole Blood 105 mg/dL (60-115)
--- NOTE | 2023-11-03 23:59 | PC.NURSE ---
Addendum entered by Mona Yoo RN 11/04/23 00:10: Repeat POC at [id number], Dr. Blanton was notified, ordered to recheck POC at 299, Report given to KIRIT Dias at 2299. Original Note: Pt noted asleep on bed at shift change, routine vitals 9o% at 3L/min via NC, lethargic but awaken appropriately when spoken to, O2 sats rechecked and 89-90% at 3L/min via NC, O2 titrated to 5L/min and went up to 93%,also at this time POC at 1952=43, pt is arousable and was able to drink apple juice, prn Glucose gel was given and tolerated, POC rechecked after 15 mins= 46, offered anotehr glucose gel but refused, D10% 250ml PRN infused instead, Dr. Blanton was updated, repeat POC at 2029= 181, pt c/o nausea, prn Zofran IV given, due meds refused by pt, came to bedside, ordered manager monitoring and STAT labs, labs refused by pt at first, revisited and 2199 and pt complied for labs, Tele -SR at 98, O2 titrated down to 3L/min O2 sats maintained at low 90s, repeat POC at 2212=80, MD informed, awaiting for lab results.
[2023-11-04] VITALS (12 sets, daily range): BP systolic 101–140; BP diastolic 54–77; PULSE 65–91; RESP 16–20; TEMP 36–36.4; O2SAT 90–97
[2023-11-04 03:12] LABS: Glucose, Whole Blood 99 mg/dL (60-115)
[2023-11-04 06:50] LABS: Glucose, Whole Blood 83 mg/dL (60-115)
--- NOTE | 2023-11-04 06:53 | PM.EVENT ---
Event Note Date of Service: 11/03/23 Event Note: Hypoglycemia of 43, received glucose gel x 1, refused, then got IV dextrose... Blood has been abobe 80 since, last check 83 Time Spent With Patient Time: Total time managing care of this patient today ____ minutes.
[2023-11-04] MEDS: 0.9 % Sodium Chloride Flush 3 ML SYRINGE IVFLUSH ×3 (08:24→21:10)
[2023-11-04] MEDS: NIFEdipine ER 60 MG TAB.ER.24 PO (09:11)
[2023-11-04] MEDS: hydrALAZINE HCl 50 MG TABLET 100 MG PO ×3 (09:11→21:06)
[2023-11-04] MEDS: carvediloL 12.5 MG TABLET PO ×2 (09:12→21:07)
[2023-11-04] MEDS: Torsemide 20 MG TABLET 40 MG PO (09:12)
[2023-11-04] MEDS: HYDROmorphone HCl 1 MG/ML SYRINGE IVPUSH ×2 (11:16→17:43)
--- NOTE | 2023-11-04 11:17 | P.PNIM_ITS ---
Subjective Subjective Date of Service: 11/04/23 Interval History: Events from last night noted hypoglycemia resolved. Complaining of chronic back pain, left leg pain, admits of using oxycodone 10 mg at home with no relief, feels feverish. Agreeing to take medications lab draws and dressing change. Review of Systems All other system reviewed and are negative. Physical Exam 2 Vital Signs: Vital Signs: Last Vital Signs Temp 97.1 F 11/04/23 07:44 Pulse 91 11/04/23 09:12 Resp 18 11/04/23 07:44 BP 126/68 11/04/23 09:12 Pulse Ox 97 11/04/23 07:44 O2 Del Method Nasal Cannula 11/04/23 07:44 O2 Flow Rate 3 11/04/23 07:44 BMI result Body Mass Index 32.4 Const: Other: General awake alert x3, no distress. Neck no JVD. CVS regular rate rhythm, Respiratory lungs clear to auscultation, no respiratory distress, no wheeze, no rhonchi. Gastrointestinal abdomen soft, non tender, bowel sounds audible Left para vertebral lumbar muscle tenderness to palpation Extremities right TMA wound well healed, heel wounds with scant foul drainage Ecchymosis right arm Neuro non focal Psych depressed Objective Data Active Medications Acetaminophen (Acetaminophen 325 Mg Tablet) 650 mg PO Q6H PRN PRN Reason: Pain, Mild (Pain Scale 1-3), fever or headache Calcium Carbonate (Calcium Carbonate 750 Mg Tab.Chew) 750 mg PO Q4H PRN PRN Reason: Heartburn Carvedilol (Carvedilol 12.5 Mg Tablet) 12.5 mg PO BID [facility]; Protocol Last Admin: 11/04/23 09:12 Dose: 12.5 mg Documented By: RUBA Diphenhydramine HCl (Diphenhydramine Hcl 12.5 Mg/5 Ml Liquid) 25 mg PO BEDTIME [facility] Last Admin: 11/03/23 21:23 Dose: Not Given Documented By: OLGA Non-Admin Reason: Patient Refused Glucose (Glucose Gel 15 Gm Gel..Gram.) 15 gm PO Q15M PRN; Protocol PRN Reason: per Hypoglycemia Standing Ord. Last Admin: 11/03/23 19:56 Dose: 15 gm Documented By: OLGA Comments: poc 43 Heparin Sodium (Porcine) (Heparin Sodium,Porcine 5,000 Unit/Ml Vial) 5,000 unit SUBCUT Q8H [facility] Last Admin: 11/04/23 06:20 Dose: Not Given Documented By: PATRICIO Non-Admin Reason: Patient Refused Hydralazine HCl (Hydralazine Hcl 50 Mg Tablet) 100 mg PO TID [facility]; Protocol Last Admin: 11/04/23 09:11 Dose: 100 mg Documented By: RUBA Hydromorphone HCl (Hydromorphone Hcl 1 Mg/Ml Syringe) 1 mg IVPUSH Q4H PRN; Protocol PRN Reason: Pain, Severe (Pain Scale 7-10) Dextrose (D10) 250 mls @ 750 mls/hr IV Q15M PRN; Protocol PRN Reason: per Hypoglycemia Standing Ord. Last Infusion: 11/03/23 20:43 Dose: Infused Documented By: OLGA Insulin Human Lispro (Insulin Lispro 100 Unit/Ml 3 Ml Vial) 0 unit SUBCUT QIDACHS [facility]; Protocol Last Admin: 11/04/23 08:23 Dose: Not Given Documented By: RUBA Non-Admin Reason: No Insulin Coverage Lidocaine (Lidocaine 4 % Patch Adh..Patch) 1 patch TRANSDERMA DAILY [facility]; Protocol Magnesium Hydroxide (Milk Of Magnesia 30 Ml Oral.Susp) 30 ml PO DAILY PRN PRN Reason: Constipation Melatonin (Melatonin 3 Mg Tablet) 6 mg PO BEDTIME PRN PRN Reason: Insomnia Nifedipine (Nifedipine Er 60 Mg Tab.Er.24) 60 mg PO DAILY [facility]; Protocol Last Admin: 11/04/23 09:11 Dose: 60 mg Documented By: RUBA Ondansetron HCl (Ondansetron Hcl 4 Mg/2 Ml Vial) 4 mg IVPUSH Q6H PRN PRN Reason: Nausea and Vomiting Last Admin: 11/03/23 20:38 Dose: 4 mg Documented By: OLGA Oxycodone HCl (Oxycodone Hcl Immed Release 5 Mg Tablet) 10 mg PO Q6H PRN PRN Reason: Pain, Moderate(Pain Scale 4-6) Sodium Chloride (0.9 % Sodium Chloride Flush 3 Ml Syringe) [facility] Last Admin: 11/04/23 08:24 Dose: 3 ml Documented By: RUBA Torsemide (Torsemide 20 Mg Tablet) 40 mg PO BIDWM [facility]; Protocol Last Admin: 11/04/23 09:12 Dose: 40 mg Documented By: RUBA Labs 11/03/23 13:01 11/03/23 22:23 Labs: Laboratory Results - last 24 hr 11/03/23 11/03/23 11/03/23 11:13 13:01 19:50 MCV 93.3 MCH 30.2 MCHC 32.4 RDW 18.6 H Plt Count 115 L MPV 12.1 Absolute Nucleated RBC 0.000 Nucleated RBC % (auto) 0.0 VBG pH VBG pCO2 VBG pO2 VBG HCO3 VBG O2 Saturation VBG Base Excess Anion Gap 16 Estim Creat Clear Calc 9.8 Estimated GFR 5 POC Glucose 99 43 L* Random Glucose Fasting Glucose 95 Calcium 8.1 L 11/03/23 11/03/23 11/03/23 20:09 20:31 22:13 MCV MCH MCHC RDW Plt Count MPV Absolute Nucleated RBC Nucleated RBC % (auto) VBG pH VBG pCO2 VBG pO2 VBG HCO3 VBG O2 Saturation VBG Base Excess Anion Gap Estim Creat Clear Calc Estimated GFR POC Glucose 46 L* 181 H 80 Random Glucose Fasting Glucose Calcium 11/03/23 11/03/23 11/03/23 22:23 22:28 22:59 MCV MCH MCHC RDW Plt Count MPV Absolute Nucleated RBC Nucleated RBC % (auto) VBG pH 7.47 H VBG pCO2 30 VBG pO2 54 VBG HCO3 22 VBG O2 Saturation 85.0 VBG Base Excess -0.4 Anion Gap 19 Estim Creat Clear Calc 14.0 Estimated GFR 7 POC Glucose 110 Random Glucose 83 Fasting Glucose Calcium 8.5 11/03/23 11/04/23 11/04/23 23:41 03:07 06:45 MCV MCH MCHC RDW Plt Count MPV Absolute Nucleated RBC Nucleated RBC % (auto) VBG pH VBG pCO2 VBG pO2 VBG HCO3 VBG O2 Saturation VBG Base Excess Anion Gap Estim Creat Clear Calc Estimated GFR POC Glucose 105 99 83 Random Glucose Fasting Glucose Calcium Assessment and Plan (1) Chronic foot ulcer: Status: Acute (2) Chronic kidney disease: Status: Acute (3) Hypertension, uncontrolled: Status: Acute (4) Medical non-compliance: Status: Acute Plan 33-year-old female with a PMH significant for?ESRD on HD (refuses to go on Saturdays), multiple hospitalizations due to noncompliance with hemodialysis, diabetic retinopathy with blindness, peripheral vascular disease (s/p bilat transmetatarsal amputation), poorly controlled hypertension due to noncompliance with medications, chronic respiratory failure on supplemental oxygen, HFrEF, mood disorder, and chronic pain with opiate seeking behavior presented with sob due to missed HD. End-stage renal disease Shortness of for due to fluid overload resolved after hemodialysis Started on hemodialysis in July of 2022 on twice weekly hemodialysis due to noncompliance Strongly recommend compliance with hemodialysis and close Nephrology follow-up ch. Pancytopenia Will obtain iron studies question anemia of chronic disease if iron studies normal, will discuss Procrit use with Nephrology. Hypertension continue home medications Coreg, nifedipine, hydralazine and torsemide, stable blood pressure Chronic systolic CHF no acute exacerbation, Continue maintenance diuretics, Coreg Ch. Bilateral heel wound with foul drainage Wound nurse consult pending/continue dressing change Chronic pain disorder, opiod dependence Complain of chronic back pain mostly localized to left lumbar paravertebral muscles, mid back, no radiation of pain Left leg pain Oxycodone 10 mg q6h at home not relieving symptoms Recommend outpatient follow-up with PCP and pain management Will place on lidocaine patch and IV Dilaudid x 24h continue oxycodone upon discharge with PCP referral. Mood disorder Was evaluated by psych in 06/16/2023 Zoloft 25 mg was added, was also on mirtazapine 7.5 mg at bedtime, but patient is not on these medications since 10/16/2023. obtain psyche eval. DM not on home medication Low blood sugars likely due to decreased by mouth intake resolved ,on insulin sliding scale, discuss need for blood sugar monitoring, and skipping meals. DVT prophylaxis on heparin subQ Full code Patient will require continued inpatient hospitalization for hemodialysis and close blood pressure monitoring and wound care. Quality Stroke Does the patient have a stroke diagnosis?: No VTE Prior VTE?: No VTE Risk Level:: Medical - moderate - high VTE Device Contraindication: Treatment Not Indicated VTE Drug Contraindication: N/A - Med Ordered
[2023-11-04] MEDS: Lidocaine 4 % Patch ADH..PATCH 1 PATCH TRANSDERMA (11:18)
[2023-11-04 11:20] LABS: Glucose, Whole Blood 127 mg/dL (60-115)
[2023-11-04 16:17] LABS: Glucose, Whole Blood 111 mg/dL (60-115)
[2023-11-04] MEDS: ondansetron HCL 4 MG/2 ML VIAL IVPUSH (17:38)
[2023-11-04 20:45] LABS: Glucose, Whole Blood 140 mg/dL (60-115)
[2023-11-04] MEDS: diphenhydrAMINE HCl 12.5 MG/5 ML LIQUID 25 MG PO (21:07)
[2023-11-04] MEDS: HYDROmorphone HCl 1 MG/ML SYRINGE 0.5 MG IVPUSH (23:35)
[2023-11-05 03:21] VITALS: BP 103/58; PULSE 70; RESP 16; TEMP 36; O2SAT 94
[2023-11-05] MEDS: HYDROmorphone HCl 1 MG/ML SYRINGE 0.5 MG IVPUSH (05:35)
[2023-11-05 06:51] VITALS: BP 115/69; PULSE 73; RESP 17; TEMP 36.6; O2SAT 93
[2023-11-05 07:08] LABS: Glucose, Whole Blood 93 mg/dL (60-115)
[2023-11-05] MEDS: 0.9 % Sodium Chloride Flush 3 ML SYRINGE IVFLUSH (09:27)
[2023-11-05 09:32] VITALS: BP 100/59; PULSE 73
[2023-11-05] MEDS: Lidocaine 4 % Patch ADH..PATCH 1 PATCH TRANSDERMA (09:33)
[2023-11-05 09:36] LABS: Hematocrit 23.4 % (37.0-47.0); Hemoglobin 7.4 g/dl (12.0-16.0); Mean Corpuscular HGB Conc 31.6 g/dl (31.0-35.0); Mean Corpuscular Hemoglobin 29.5 pg (27.0-33.0); Mean Corpuscular Volume 93.2 fL (80.0-98.0); Mean Platelet Volume 12.8 fL (9.4-12.3); Platelet Count 105 X10*3/uL (160-400); Red Blood Count 2.51 X10*6/uL (4.20-5.50); Red Cell Distribution Width 18.8 % (11.0-16.0)
[2023-11-05] MEDS: ondansetron HCL 4 MG/2 ML VIAL IVPUSH (09:53)
[2023-11-05 09:54] LABS: Iron 26 mcg/dL (30-160); Percent Iron Saturation 12 % (15-50); Total Iron Binding Capacity 212 mcg/dL (228-428); Unsaturated Iron Binding 186 ug/dL
--- NOTE | 2023-11-05 10:26 | P.PNGS_ITS ---
Subjective Subjective Date of Service: 11/05/23 Interval history: I was asked to follow up on the patient because of her chronic complaints of left leg and foot pain Physical Exam 2 Vital Signs: Vital Signs: Last Vital Signs Temp 97.9 F 11/05/23 06:51 Pulse 73 11/05/23 09:32 Resp 17 11/05/23 06:51 BP 100/59 L 11/05/23 09:32 Pulse Ox 93 11/05/23 06:51 O2 Del Method Room Air 11/05/23 06:51 O2 Flow Rate 3 11/05/23 03:21 BMI result Body Mass Index 32.4 Const: Other: Anxious General: no acute distress Resp: Effort & Inspection: normal respiratory effort Cardio: Rate: regular rate Extrem: Other: Left foot examined - dry callus on the plantar aspect, no infection; ulcer on the posterior aspect of the heel, superficial eschar, no pus, no gangrene Objective Data Active Medications Acetaminophen (Acetaminophen 325 Mg Tablet) 650 mg PO Q6H PRN PRN Reason: Pain, Mild (Pain Scale 1-3), fever or headache Calcium Carbonate (Calcium Carbonate 750 Mg Tab.Chew) 750 mg PO Q4H PRN PRN Reason: Heartburn Carvedilol (Carvedilol 12.5 Mg Tablet) 12.5 mg PO BID [facility]; Protocol Last Admin: 11/05/23 09:32 Dose: Not Given Documented By: GONZÁLEZ Non-Admin Reason: Patient Refused Diphenhydramine HCl (Diphenhydramine Hcl 12.5 Mg/5 Ml Liquid) 25 mg PO BEDTIME [facility] Last Admin: 11/04/23 21:07 Dose: 25 mg Documented By: ELISE Glucose (Glucose Gel 15 Gm Gel..Gram.) 15 gm PO Q15M PRN; Protocol PRN Reason: per Hypoglycemia Standing Ord. Last Admin: 11/03/23 19:56 Dose: 15 gm Documented By: OLGA Comments: poc 43 Heparin Sodium (Porcine) (Heparin Sodium,Porcine 5,000 Unit/Ml Vial) 5,000 unit SUBCUT Q8H [facility] Last Admin: 11/05/23 05:02 Dose: Not Given Documented By: ELISE Non-Admin Reason: Patient Refused Hydralazine HCl (Hydralazine Hcl 50 Mg Tablet) 100 mg PO TID [facility]; Protocol Last Admin: 11/05/23 09:32 Dose: Not Given Documented By: GONZÁLEZ Non-Admin Reason: Patient Refused Dextrose (D10) 250 mls @ 750 mls/hr IV Q15M PRN; Protocol PRN Reason: per Hypoglycemia Standing Ord. Last Infusion: 11/03/23 20:43 Dose: Infused Documented By: OLGA Insulin Human Lispro (Insulin Lispro 100 Unit/Ml 3 Ml Vial) 0 unit SUBCUT QIDACHS [facility]; Protocol Last Admin: 11/05/23 07:18 Dose: Not Given Documented By: GONZÁLEZ Non-Admin Reason: No Insulin Coverage Lidocaine (Lidocaine 4 % Patch Adh..Patch) 1 patch TRANSDERMA DAILY [facility]; Protocol Last Admin: 11/05/23 09:33 Dose: 1 patch Documented By: GONZÁLEZ Magnesium Hydroxide (Milk Of Magnesia 30 Ml Oral.Susp) 30 ml PO DAILY PRN PRN Reason: Constipation Melatonin (Melatonin 3 Mg Tablet) 6 mg PO BEDTIME PRN PRN Reason: Insomnia Nifedipine (Nifedipine Er 60 Mg Tab.Er.24) 60 mg PO DAILY [facility]; Protocol Last Admin: 11/05/23 09:32 Dose: Not Given Documented By: GONZÁLEZ Non-Admin Reason: Patient Refused Ondansetron HCl (Ondansetron Hcl 4 Mg/2 Ml Vial) 4 mg IVPUSH Q6H PRN PRN Reason: Nausea and Vomiting Last Admin: 11/05/23 09:53 Dose: 4 mg Documented By: GONZÁLEZ Oxycodone HCl (Oxycodone Hcl Immed Release 5 Mg Tablet) 10 mg PO Q6H PRN PRN Reason: Pain, Moderate(Pain Scale 4-6) Sodium Chloride (0.9 % Sodium Chloride Flush 3 Ml Syringe) [facility] Last Admin: 11/05/23 09:27 Dose: 3 ml Documented By: GONZÁLEZ Torsemide (Torsemide 20 Mg Tablet) 40 mg PO BIDWM [facility]; Protocol Last Admin: 11/05/23 09:31 Dose: Not Given Documented By: GONZÁLEZ Non-Admin Reason: Patient Refused Labs 11/05/23 09:21 11/03/23 22:23 Labs: Laboratory Results - last 24 hr 09/10/1911/04/23 11/04/23 11:16 16:13 20:41 MCV MCH MCHC RDW Plt Count MPV Absolute Nucleated RBC Nucleated RBC % (auto) POC Glucose 127 H 111 140 H Iron TIBC % Saturation Unsat Iron Binding 11/05/23 11/05/23 06:48 09:21 MCV 93.2 MCH 29.5 MCHC 31.6 RDW 18.8 H Plt Count 105 L MPV 12.8 H Absolute Nucleated RBC 0.000 Nucleated RBC % (auto) 0.0 POC Glucose 93 Iron 26 L TIBC 212 L % Saturation 12 L Unsat Iron Binding 186 Procedures Date of Service Date of Service: 11/05/23 Progress Note: A&P Assessment and plan (1) Chronic foot ulcer: Status: Acute Assessment and Plan: I changed her dressings, applied silver alginate her trans met amputation site is well healed She had been asking about a BKA of the left I explained to her that doing her BKA will unlikely to help with chronic pain There is also risk of nonhealing her poor healing with a BKA Furthermore, she may have chronic pain on any further amputation She has issues with pain in the left leg as well as the back There is no ongoing infection of the left foot She is stated that she needs to keep coming back to the hospital It does not appear however that reasons for admission to hospital always involved the left foot as she has other multiple medical problems Time Spent With Patient Time: Total time managing care of this patient today ____ minutes. Quality Stroke Does the patient have a stroke diagnosis?: No VTE Prior VTE?: No VTE Risk Level:: Medical - moderate - high VTE Device Contraindication: Treatment Not Indicated VTE Drug Contraindication: N/A - Med Ordered
--- NOTE | 2023-11-05 11:01 | PM.DS ---
DS: Providers Provider Date of Service: 11/05/23 Date of admission: 11/02/23 20:34 Date of discharge: 11/05/23 Primary care physician: Genevieve Casillas MD Consults: 11/02/23 20:34 Consult to Nephrology Routine Consulting Provider: [facility] Reason for consultation: esrd 11/03/23 00:46 Consult to Wound Care Routine Reason for consultation: chronic foot ulcer DS: Diagnosis Discharge Diagnosis (1) Chronic foot ulcer: Status: Acute DS: Summary Hospital Course Hospital Course: History of presenting illness: Date of Service: 11/02/23 Chief Complaint: sob 33-year-old female with a PMH significant for?ESRD on HD (refuses to go on Saturdays), multiple hospitalizations due to noncompliance with hemodialysis, diabetic retinopathy with blindness, peripheral vascular disease (s/p bilat transmetatarsal amputation), poorly controlled hypertension due to noncompliance with medications, chronic respiratory failure on supplemental oxygen, HFrEF, mood disorder, and chronic pain with opiate seeking behavior presented with sob. patient missed last 2 HD sessions. reports worsening edema and sob, worse on exertion. in ED on room air, labs with acute metabolic acidosis. Hospital course: 33-year-old female with a PMH significant for?ESRD on HD (refuses to go on Saturdays), multiple hospitalizations due to noncompliance with hemodialysis, diabetic retinopathy with blindness, peripheral vascular disease (s/p bilateral transmetatarsal amputation), poorly controlled hypertension due to noncompliance with medications, chronic respiratory failure on supplemental oxygen, HFrEF, mood disorder, and chronic pain with opiate seeking behavior, presented with sob due to missed HD, patient admitted to medical floor underwent hemodialysis, shortness of breath resolved, strongly recommended compliance with hemodialysis and close outpatient Nephrology follow-up, patient was also noted to chronic pancytopenia with low iron studies, therefore placed on iron supplements, strongly recommended outpatient Nephrology follow-up for Procrit once iron stores are optimized. In regard to hypertension patient was continued on all home medications including Coreg, nifedipine, hydralazine and torsemide, noted to have soft blood pressures therefore dose of hydralazine reduced to 50 mg t.i.d. likely noncompliance at home with low blood pressures when BP medications given and hospital . Chronic systolic CHF no acute exacerbation, Continue maintenance diuretics, and Coreg Ch. Bilateral heel wound initially noted to have scant foul drainage dressing changed later evaluated by General surgery wounds are healing well, continue wound dressings. Chronic pain disorder, opiod dependence, recommend to follow-up with primary care physician to discuss pain management question needs long-acting narcotics like OxyContin and oxycodone for breakthrough pain explained to patient that coming to hospital for IV Dilaudid is not a solution for chronic pain management, patient requested for surgical eval for left BKA, evaluated by General surgery, noted to have no indication for BKA explained this to patient and recommend outpatient wound care and pain management. Mood disorder was evaluated by psych in 06/16/2023 Zoloft 25 mg was added, was also on mirtazapine 7.5 mg at bedtime, but patient is not on these medications since 10/16/2023, since she claims it cause suicidal ideation declined psych eval. DM not on home medication noted to have low blood sugars due to decreased by mouth intake,blood sugars improved with food intake , declined nutrition consult. Time Attestation Discharge Coordination Time (in mins): 38 Quality: Safe Use of Opioids Does Pt have an Active Cancer Diagnosis on the Problem List?: No Quality: Stroke Does the patient have a stroke diagnosis?: No Physical Exam Vital Signs: Vital Signs: Last Vital Signs Temp 97.9 F 11/05/23 06:51 Pulse 73 11/05/23 09:32 Resp 17 11/05/23 06:51 BP 100/59 L 11/05/23 09:32 Pulse Ox 93 11/05/23 06:51 O2 Del Method Room Air 11/05/23 06:51 O2 Flow Rate 3 11/05/23 03:21 BMI result Body Mass Index 32.4 Const: Other: General awake alert x3, no distress. Neck no JVD. CVS regular rate rhythm, Respiratory lungs clear to auscultation, no respiratory distress, no wheeze, no rhonchi. Gastrointestinal abdomen soft, non tender, bowel sounds audible Extremities right TMA wound well healed, left foot dry callus on plantar aspect, no infection, ulcer on posterior aspect the heel superficial eschar, no pus, no gangrene Lower back, no pain Ecchymosis right arm Neuro non focal DS: Data Data Completed and Pending Completed studies during hospitalization [Text1]: Procedures Detachment at Left 2nd Toe, Complete, Open Approach (09/08/23) Detachment at Left 3rd Toe, Complete, Open Approach (09/08/23) Detachment at Left 4th Toe, Complete, Open Approach (09/08/23) Detachment at Right Foot, Partial 1st Ray, Open Approach (03/01/20) Detachment at Right Foot, Partial 2nd Ray, Open Approach (03/01/20) Detachment at Right Foot, Partial 3rd Ray, Open Approach (03/01/20) Detachment at Right Foot, Partial 4th Ray, Open Approach (03/01/20) Detachment at Right Foot, Partial 5th Ray, Open Approach (03/01/20) Drainage of Right Pleural Cavity, Percutaneous Approach (01/14/21) Excision of Left Foot Skin, External Approach (10/08/23) Excision of Left Foot Subcutaneous Tissue and Fascia, Open Approach (10/08/23) Excision of Right Foot Skin, External Approach (08/27/23) Excision of Stomach, Pylorus, Via Natural or Artificial Opening Endoscopic, Diagnostic (08/27/22) Fluoroscopy of Superior Vena Cava, Guidance (08/14/22) Insertion of Infusion Device into Right Atrium, Percutaneous Approach (08/14/22) Insertion of Infusion Device into Superior Vena Cava, Percutaneous Approach (01/14/21) Insertion of Infusion Device into Upper Vein, Percutaneous Approach (08/27/23) Insertion of Tunneled Vascular Access Device into Chest Subcutaneous Tissue and Fascia, Percutaneous Approach (08/14/22) Performance of Urinary Filtration, Intermittent, Less than 6 Hours Per Day (10/08/23) Removal of Infusion Device from Great Vessel, External Approach (01/14/21) Transfusion of Nonautologous Red Blood Cells into Peripheral Vein, Percutaneous Approach (04/22/22) Labs on day of discharge: Laboratory Results - last 24 hr 11/04/23 11/04/23 11/04/23 11:16 16:13 20:41 WBC RBC Hgb Hct MCV MCH MCHC RDW Plt Count MPV Absolute Nucleated RBC Nucleated RBC % (auto) POC Glucose 127 H 111 140 H Iron TIBC % Saturation Unsat Iron Binding 11/05/23 11/05/23 06:48 09:21 WBC 5.0 RBC 2.51 L Hgb 7.4 L Hct 23.4 L MCV 93.2 MCH 29.5 MCHC 31.6 RDW 18.8 H Plt Count 105 L MPV 12.8 H Absolute Nucleated RBC 0.000 Nucleated RBC % (auto) 0.0 POC Glucose 93 Iron 26 L TIBC 212 L % Saturation 12 L Unsat Iron Binding 186 Discharge Plan Discharge Anticipated Discharge Date/Time: 11/05/23 10:57 Patient Disposition: Home, Self-Care Discharge Diagnosis: Shortness of breaths due to missed hemodialysis End-stage renal disease Chronic pain syndrome Referrals: Genevieve Gtz MD [Primary Care Provider] - 1 Week ([facility] will be reaching out to you directly to schedule a post discharge appointment. Additionally, [facility] has a walk in Urgent care Sunday -Sunday from 8:30 AM- 4:30 PM.) Physician,Kira Regan [Physician] - 1 Week ([facility] will be reaching out to you directly to schedule a post discharge appointment. Additionally, [facility] has a walk in Urgent care Sunday -Sunday from 8:30 AM- 4:30 PM.) Discharge Medications: New ferrous sulfate 324 mg (65 mg iron) tablet,delayed release (DR/EC) 324 mg PO BID Qty: 120 0RF Continued (DME) off loading boot Kit See Rx Instructions .Route Qty: 1 0RF Rx Instructions: As directed carvedilol 12.5 mg tablet 12.5 mg PO BID torsemide 20 mg tablet 40 mg PO BID Calcium Antacid 300 mg (750 mg) tablet,chewable 1 tab PO TIDWM nifedipine 60 mg tablet extended release 24hr 60 mg PO DAILY diphenhydramine HCl 12.5 mg/5 mL Elixir 25 mg PO BEDTIME ondansetron 4 mg tablet,disintegrating 4 mg PO Q8H PRN (Reason: nausea and vomiting) Qty: 14 0RF oxycodone 5 mg tablet 5 mg PO Q6H PRN (Reason: pain, severe) Qty: 20 0RF Rx Instructions: Partial Fill upon patient request. Changed hydralazine 50 mg Tablet 50 mg PO TID Qty: 90 2RF Protocol: Hold for SBP< HOLD for SBP < : 90 Discharge Orders: Discharge Order (Routine); Ordered 11/05/23 Ordered By: Scarlet Arora Diet: Advance to usual diet Activity on Discharge: As tolerated Stand Alone Forms: Patient Portal Discharge page Print Language: Maltese Care Plan Goals: Continue outpatient hemodialysis Tuesdays and Dose of hydralazine reduced to 50 mg t.i.d. due to soft blood pressures. Continue oxygen at home Health Concerns: recommend compliance with hemodialysis and home medications to avoid readmissions Plan of Treatment: Follow-up with primary care physician call to make an appointment to discuss pain management. Assessment: As above
[2023-11-05] MEDS: oxyCODONE HCl Immed Release 5 MG TABLET 10 MG PO (11:45)
--- NOTE | 2023-11-05 11:47 | PC.NURSE ---
Pt being discharged. She initially declined pain meds several times today including for discharge. Pt starting moaning and crying out while going over paperwork. She was receptive to pain meds at this time. Per Dr. Arora the Oxycodone is to be used for her pain. Pt transferred with all belongings via w/c to lobby with her sister picking her up.
--- NOTE | 2023-11-05 16:28 | MHC.CM.PN ---
Addendum entered by Ksenia Villafuerte RN 11/05/23 16:29: PT ENCOURAGED BY CM/SURGICAL, HOSPITALIST AND RN TO FOLLOW-UP W/PCP FOR REF TO PAIN MANAGEMENT. 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
== END 2023-11-05 11:55 | disposition home or self-care (01) | DRG 640 ==
LOC: HO.ED 16:52 → HO.EDOVER 20:38 → HO.S3 23:25
PROVIDERS: Internal Medicine; Admitting Provider Internal Medicine; Emergency Provider Internal Medicine; PCP Student in an Organized Health Care Education/Training Program; Visit Provider Hospitalist
DX: E87.70 Fluid overload, unspecified (principal); N18.6 End stage renal disease; I13.2 Hypertensive heart and chronic kidney disease with heart failure and with stage 5 chronic kidney disease, or end stage renal disease; I50.22 Chronic systolic (congestive) heart failure; L97.429 Non-pressure chronic ulcer of left heel and midfoot with unspecified severity; L97.419 Non-pressure chronic ulcer of right heel and midfoot with unspecified severity; H54.8 Legal blindness, as defined in USA; F39 Unspecified mood [affective] disorder; E11.621 Type 2 diabetes mellitus with foot ulcer; G89.4 Chronic pain syndrome; E11.649 Type 2 diabetes mellitus with hypoglycemia without coma; E11.319 Type 2 diabetes mellitus with unspecified diabetic retinopathy without macular edema; E11.22 Type 2 diabetes mellitus with diabetic chronic kidney disease; Z99.2 Dependence on renal dialysis; Z91.199 Patient's noncompliance with other medical treatment and regimen due to unspecified reason; Z91.158 Patient's noncompliance with renal dialysis for other reason; Z79.899 Other long term (current) drug therapy
CPT/HCPCS: 36415; 71045; 80048; 80053; 82803; 82947; 83540; 85025; 85027; 90999; 93005; 99285; J1170; J1940; J2405

== ENCOUNTER → 2023-11-02 20:34 | Outpatient (BNV) | payer OTHER, SELFPAY | PROVIDERS: Admitting Provider Internal Medicine; Emergency Provider Internal Medicine; PCP Student in an Organized Health Care Education/Training Program; Visit Provider Surgery | DX: L97.509 Non-pressure chronic ulcer of other part of unspecified foot with unspecified severity (principal) | CPT/HCPCS: 99024 ==

== ENCOUNTER → 2023-11-02 20:34 | Outpatient (BNV) | payer OTHER, SELFPAY | PROVIDERS: Admitting Provider Internal Medicine; Emergency Provider Internal Medicine; Visit Provider Internal Medicine | DX: E11.621 Type 2 diabetes mellitus with foot ulcer (principal); L97.509 Non-pressure chronic ulcer of other part of unspecified foot with unspecified severity | CPT/HCPCS: 99222; 99233; 99239; 99499 ==

== ENCOUNTER 2023-11-06 19:25 | Emergency (ER) | payer OTHER, SELFPAY ==
--- NOTE | ~2023-11-06 | XR_ITS ---
EXAMINATION: XR LUMBOSACRAL SPINE CLINICAL INFORMATION: Pain COMPARISON: 10/24/2018 TECHNIQUE: Three views of the lumbosacral spine. FINDINGS: There is anatomic alignment of the lumbar vertebral bodies and posterior elements. Mild disc space narrowing at L4-L5 and L5-S1. Vertebral body heights are maintained. No acute fracture is seen. Trace osteophytes at L4-L5. Sacroiliac joints appear intact. Large amount of stool noted in the visualized colon. XR/XR lumbar spine 2-3V IMPRESSION: No acute findings identified. Mild degenerative changes of the lower lumbar spine. Electronically signed by: Carlos Nagy MD 11/07/2023 01:24 AM EDT
[2023-11-06 19:37] VITALS: BP 160/80; PULSE 100; O2SAT 98
[2023-11-06 19:44] VITALS: BMI 31.2
[2023-11-06 19:46] VITALS: BP 138/69; PULSE 88; RESP 16; TEMP 36.4; O2SAT 96; BMI 32.1
--- NOTE | 2023-11-06 19:47 | ECG_ITS ---
Test Reason : EVAL Blood Pressure : / mmHG Vent. Rate : 087 BPM Atrial Rate : 087 BPM P-R Int : 166 ms QRS Dur : 148 ms QT Int : 442 ms P-R-T Axes : 057 -55 030 degrees QTc Int : 531 ms Normal sinus rhythm Right bundle branch block Left anterior fascicular block Bifascicular block Abnormal ECG When compared with ECG of 02-NOV-2023 17:11, Left anterior fascicular block is now Present Referred By: Blair Henry Electronically Signed By:JULIÁN CANCINO
--- NOTE | 2023-11-06 19:50 | ED_ITS ---
HPI - General Adult General Chief complaint: Back Pain/Injury Stated complaint: back apin Time Seen by Provider: 11/06/23 19:36 Source: patient History of Present Illness ED Provider: Carl CARRION narrative: 33-year-old female with past medical history of ESRD on HD Sun/Sun (refuses to go on Saturdays), multiple hospitalizations due to noncompliance with hemodialysis, diabetic retinopathy with blindness, peripheral vascular disease (s/p bilat transmetatarsal amputation), poorly controlled hypertension due to noncompliance with medications, chronic respiratory failure on supplemental oxygen, HFrEF, mood disorder, and chronic pain with opiate seeking behavior presents for back pain. Patient states that her back pain started either yesterday or today and it is severe in nature. She denies any recent trauma/falls. She denies fevers, chills, chest pain, shortness of breath, abdominal pain. She states that she has taken Tylenol and oxycodone with minimal relief in symptoms. Patient did not go to dialysis today. Related Data Home Medications ?Medication ?Instructions ?Recorded ?Confirmed carvedilol 12.5 mg tablet 12.5 mg PO BID 06/05/23 11/02/23 torsemide 20 mg tablet 40 mg PO BID 06/05/23 11/02/23 calcium carbonate (Calcium Antacid) 1 tab PO TIDWM 08/28/23 11/02/23 diphenhydramine HCl 12.5 mg/5 mL 25 mg PO BEDTIME 10/08/23 11/02/23 oral elixir nifedipine 60 mg tablet,extended 60 mg PO DAILY 10/08/23 11/02/23 release 24 hr Previous Rx's ?Medication ?Instructions ?Recorded off loading boot #1 ea 03/14/23 ondansetron 4 mg disintegrating 4 mg PO Q8H PRN nausea and 10/19/23 tablet vomiting #14 tabs oxycodone 5 mg tablet 5 mg PO Q6H PRN pain, severe #20 10/19/23 tabs ferrous sulfate 324 mg (65 mg 324 mg PO BID #120 tabs 11/05/23 iron) tablet,delayed release hydralazine 50 mg tablet 50 mg PO TID #90 tabs 11/05/23 Allergies Allergy/AdvReac Type Severity Reaction Status Date / Time morphine [MORPHINE] Allergy Intermediate Itching Verified 09/10/24 19:47 azithromycin [From Zithromax] Allergy Hives Verified 11/06/23 19:47 gabapentin Allergy Facial Verified 11/06/23 19:47 Swelling tramadol Allergy Facial Verified 11/06/23 19:47 Swelling vancomycin Allergy Anaphylaxis Verified 11/06/23 19:47 Review of Systems Review of Systems: Patient is endorsing back pain and nausea. Patient has chronic bilateral lower extremity pain Patient denies fevers, chills, chest pain, shortness of breath, abdominal pain, vomiting Yes all other systems are reviewed and are negative PMFSH Past Medical History Medical History Chronic foot ulcer Plantar ulcer of left foot Major depressive disorder, single episode, severe ESRD (end stage renal disease) Non-compliance with renal dialysis Hypertensive urgency MDD (major depressive disorder), recurrent episode MDD (major depressive disorder) Renal failure Foot ulcer CKD (chronic kidney disease) Hypertension Diabetic foot Hyperkalemia Vomiting Renal failure Hypertension Migraine Chronic pain ESRD on dialysis Non-compliance with renal dialysis Hypertension End-stage renal disease (ESRD) Gastroparesis Diabetic foot ulcer associated with type 2 diabetes mellitus Hypertensive emergency Diabetes ESRD needing dialysis Cardiomyopathy HFrEF (heart failure with reduced ejection fraction) Metabolic acidosis delivery delivered Anemia in chronic kidney disease (CKD) Anemia CKD (chronic kidney disease) Headache, migraine Abnormal finding on echocardiogram Elevated troponin Chest pain Acute worsening of stage 3 chronic kidney disease Generalized edema Sepsis Cellulitis Pleural effusion CHF (congestive heart failure) (~06/07/22) Tachycardia Atypical chest pain Bone infection PAD (peripheral artery disease) Severe anemia Cellulitis and abscess of foot DM foot ulcer Osteomyelitis Asthma Depression with anxiety Diabetic retinopathy Type 2 diabetes mellitus with hyperglycemia, with long-term current use of insulin Blind right eye Diabetes Back pain Surgical History Tubal ligation status Previous section Hx laparoscopic cholecystectomy Hx of surgical procedure (~09/11/23) 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 Family History Family History Mother Coronary artery disease Myocardial infarction Stroke Diabetes mellitus Father Myocardial infarction Social History Social History Household Members: Family Household Members Other:: ssiter /[employer] Housing: Apartment Do you presently have visiting nurse or other home services: No Unable to assess alcohol history related to: Unknown Alcohol intake: never 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 Patient Tobacco Use Status: Never used Tobacco e-Cigarette/Vaping Use: Never Used Second Hand Smoke Exposure: No Advance Directives Date on File: 09/04/23 Do you have a plan to hurt others: No Plan service: No Current occupational status: unemployed and disabled Gender identity: Female Physical Exam ED Vital Signs: Vital Signs - 24 hr 11/06/23 19:46 Temperature 97.6 F Pulse Rate 88 Respiratory Rate 16 Blood Pressure 138/69 Pulse Oximetry 96 Oxygen Delivery Method Room Air BMI result Body Mass Index 32.1 Head normocephalic atraumatic Lungs clear to auscultation bilaterally; normal S1-S2 regular rate and rhythm Abdomen is soft nontender nondistended Bilateral paraspinal lumbar tenderness to palpation mo focal neuroeficits Medications Administered Discontinued Medications Generic Name Dose Route Start Last Admin Trade Name Freq PRN Reason Stop Dose Admin Acetaminophen 650 mg 11/06/23 19:51 11/06/23 20:48 Acetaminophen 325 Mg Tablet PO 11/06/23 19:52 650 mg ONCE ONE Administration Lidocaine 2 patch 11/06/23 19:51 11/06/23 20:47 Lidocaine 4 % Patch Adh..Patch TRANSDERMA 11/06/23 19:52 2 patch ONCE ONE Administration Protocol Medical Decision Making Medical Decision Making MDM Narrative: This is an ill 33-year-old female with multiple comorbidities presenting for back pain I suspect that her pain is musculoskeletal in nature likely secondary to muscle sprain/sprain or disc herniation Pt missed dialysis today so I will evaluate for electrolyte abnormality as well At this time I am not concerned for underlying infection as patient's bilateral lower extremity wounds appear to be healing nicely without any significant odor or significant drainage Patient's labs and imaging studies are pending Patient refused Tylenol and oxycodone stating that these do not work for her. She is requesting Dilaudid. I explained to her that dilaudid is inappropriate in this setting and that can try diazepam. Pt is pending lab word and imaging Pt signed out to night attending Differential Diagnosis Differential Diagnoses: The differential diagnosis associated with the presentation includes back pain, muscle strain/sprain, herniated disc, electrolyte disturbance Discharge Plan Discharge Clinical Impression: Back pain Prescriptions: No Action (DME) off loading boot Kit See Rx Instructions .Route Qty: 1 0RF Rx Instructions: As directed carvedilol 12.5 mg tablet 12.5 mg PO BID torsemide 20 mg tablet 40 mg PO BID Calcium Antacid 300 mg (750 mg) tablet,chewable 1 tab PO TIDWM nifedipine 60 mg tablet extended release 24hr 60 mg PO DAILY diphenhydramine HCl 12.5 mg/5 mL Elixir 25 mg PO BEDTIME ondansetron 4 mg tablet,disintegrating 4 mg PO Q8H PRN (Reason: nausea and vomiting) Qty: 14 0RF oxycodone 5 mg tablet 5 mg PO Q6H PRN (Reason: pain, severe) Qty: 20 0RF Rx Instructions: Partial Fill upon patient request. hydralazine 50 mg Tablet 50 mg PO TID Qty: 90 2RF Protocol: Hold for SBP< HOLD for SBP < : 90 ferrous sulfate 324 mg (65 mg iron) tablet,delayed release (DR/EC) 324 mg PO BID Qty: 120 0RF Print Language: Kiswahili
--- NOTE | 2023-11-06 20:07 | PC.NURSE ---
Per Kasia, hospital technician patient refused EKG d/t severe back pain. Dr. Henry made aware.
--- NOTE | 2023-11-06 20:23 | MHC.EDTECH ---
Delay in EKG due to Pt refusing, stating she cannot lay flat on her back due to the pain. Kelly BETH aware.
[2023-11-06] MEDS: Lidocaine 4 % Patch ADH..PATCH 2 PATCH TRANSDERMA (20:47)
[2023-11-06] MEDS: Acetaminophen 325 MG TABLET 650 MG PO (20:48)
[2023-11-06] MEDS: diazePAM 2 MG TABLET PO (21:31)
[2023-11-06 22:00] VITALS: BP 147/78; PULSE 88; RESP 15; TEMP 36.8; O2SAT 97
[2023-11-06 22:01] VITALS: RESP 13
[2023-11-06] MEDS: HYDROmorphone HCl 1 MG/ML SYRINGE IVPUSH (22:01)
[2023-11-06 22:02] LABS: Basophils Percent Auto 0.5 % (0-2); Eosinophils Percent Auto 0.8 % (0-4); Hemoglobin 7.6 g/dl (12.0-16.0); Imm Gran Abs Auto 0.02 X10*3/uL (0.00-0.03); Imm Gran Pct Auto 0.5 % (0.0-0.4); Lymphocytes Absolute Auto 0.3 X10*3/uL (1.2-4.9); Lymphocytes Percent Auto 8.2 % (20-40); MANUAL DIFF FLAG SCAN; Mean Corpuscular Hemoglobin 30.5 pg (27.0-33.0); Mean Corpuscular Volume 92.4 fL (80.0-98.0); Mean Platelet Volume 11.9 fL (9.4-12.3); Monocytes Absolute Auto 0.8 X10*3/uL (0.1-1.2); Monocytes Percent Auto 21.1 % (2-11); Neutrophils Absolute Auto 2.6 x10*3/uL (2.0-8.3); Neutrophils Percent Auto 68.9 % (45-73); Platelet Count 135 X10*3/uL (160-400); Red Blood Count 2.49 X10*6/uL (4.20-5.50); Red Cell Distribution Width 18.6 % (11.0-16.0); SCAN SMEAR FLAG 1; White Blood Count 3.8 X10*3/uL (4.8-10.8)
[2023-11-06 22:19] LABS: Lactic Acid 1.8 mmol/L (0.5-2.0)
[2023-11-06 22:21] LABS: Lipase 18 U/L (8-78)
[2023-11-06 22:28] LABS: Alanine Aminotransferase 14 U/L (0-31); Albumin Level 3.4 g/dL (3.5-5.0); Alkaline Phosphatase 194 U/L (39-117); Anion Gap 18 (12-20); Aspartate Amino Transferase 21 U/L (5-31); Bilirubin Total 1.1 mg/dL (0.0-1.0); Blood Urea Nitrogen 77 mg/dL (9-16); Calcium 7.5 mg/dL (8.4-10.2); Carbon Dioxide 20 mmol/L (22-29); Chloride 100 mmol/L (96-108); Creatinine Clr Calc Pharmacy 9.9; Estimated Glomerular Filt Rate 5; Glucose Random 124 mg/dL (60-115); Potassium 5.2 mmol/L (3.3-5.1); Sodium 133 mmol/L (135-145); Total Protein 7.9 g/dL (6.5-8.0)
[2023-11-06 22:34] LABS: HCG Quantitative < 2 mIU/mL
[2023-11-06 22:51] LABS: SLIDE REVIEW VERIFIED
[2023-11-06] MEDS: diphenhydrAMINE HCL 50 MG/ML VIAL 25 MG IVPUSH (23:45)
[2023-11-07 00:12] VITALS: BP 141/72; PULSE 85; RESP 16; TEMP 36.4; O2SAT 92
[2023-11-07 01:59] VITALS: BP 146/70; PULSE 83; RESP 15; TEMP 36.7; O2SAT 95
--- NOTE | 2023-11-07 03:11 | PC.NURSE ---
received report from Kiran BETH, assume care of pt at this time
--- NOTE | 2023-11-07 03:54 | PC.NURSE ---
resting quietly on stretcher, eyes closed, resp with ease, no s/s of acute distress, awaiting ride home
[2023-11-07 04:01] VITALS: RESP 16
--- NOTE | 2023-11-07 04:08 | PC.NURSE ---
pt woke up, yelling for nurse, requesting water. water given. When pt was asked, if she had her keys to get in, pt states no, when asked, if her was at home, pt states no.
--- NOTE | 2023-11-07 04:12 | PC.NURSE ---
clinic charge nurse attempted to contact the pt's /home to determine if transportation is necessary via ambulance and/or if he would be able to pick her up. NO answer, VM left.
[2023-11-07] MEDS: HYDROmorphone HCl 1 MG/ML SYRINGE IVPUSH (06:33)
[2023-11-07 06:42] VITALS: BP 158/86; PULSE 83; RESP 18; TEMP 37.2; O2SAT 98
--- NOTE | 2023-11-07 06:59 | PC.NURSE ---
report given to Angely BETH
[2023-11-07 08:09] VITALS: BP 161/73; PULSE 83; RESP 18; TEMP 37; O2SAT 95
== END 2023-11-07 08:11 | disposition home or self-care (01) ==
PROVIDERS: Student in an Organized Health Care Education/Training Program; Emergency Provider Emergency Medicine; PCP Student in an Organized Health Care Education/Training Program
DX: M54.50 Low back pain, unspecified (principal); E11.22 Type 2 diabetes mellitus with diabetic chronic kidney disease; I13.2 Hypertensive heart and chronic kidney disease with heart failure and with stage 5 chronic kidney disease, or end stage renal disease; N18.6 End stage renal disease; I50.9 Heart failure, unspecified; N17.9 Acute kidney failure, unspecified; Z99.2 Dependence on renal dialysis; I45.10 Unspecified right bundle-branch block; F11.20 Opioid dependence, uncomplicated; Z91.158 Patient's noncompliance with renal dialysis for other reason; Z91.199 Patient's noncompliance with other medical treatment and regimen due to unspecified reason
CPT/HCPCS: 36415; 72100; 80053; 83605; 83690; 84702; 85025; 93005; 96374; 96375; 96376; 99284; J1170; J1200

== ENCOUNTER 2023-11-09 21:06 | Inpatient (IN) | payer OTHER, SELFPAY ==
--- NOTE | ~2023-11-09 | IR_ITS ---
Permacath removal Patient presents with a tunneled dialysis catheter. Patient has bacteremia. Referring physician requests removal. The right chest was prepped and draped in routine sterile fashion. 1% lidocaine was used for local anesthesia. Using blunt dissection, the tunneled dialysis catheter was removed from the chest wall without complication. After hemostasis was obtained, a dry sterile dressing was applied. Patient tolerated the procedure well. The tip was sent for culture. IR/IR cvc remov tunnel wo prt/er registrar Impression: Permacath removal This procedure was performed by Michele Garcia PA-C and supervised by Dr. Maria Electronically signed by: Jose Manuel aMria MD 01/10/2024 01:29 PM [facility]
--- NOTE | ~2023-11-09 | US_ITS ---
EXAMINATION: US TRIPLEX LOWER EXTREMITY, BILATERAL CLINICAL INFORMATION: Elevated d-dimer, shortness of breath COMPARISON: DVT study 03/20/2023 TECHNIQUE: Color-flow triplex imaging with spectral analysis and compression Doppler were performed on the bilateral lower extremities. FINDINGS: Respiratory variation, normal compression and augmented flow are noted throughout the bilateral lower extremities. The visualized common femoral vein, superficial femoral vein, profunda femoral vein, popliteal vein and midcalf peroneal and posterior tibial venous segments show no evidence of deep venous thrombosis bilaterally. There is no Underwood's cyst. US/US venous duplex LE BI IMPRESSION: No evidence of deep venous thrombosis involving the bilateral lower extremities. Electronically signed by: Vani Alva MD 11/11/2023 06:59 PM EDT
--- NOTE | ~2023-11-09 | XR_ITS ---
EXAMINATION: XR CHEST CLINICAL INFORMATION: Shortness of breath COMPARISON: Chest x-ray November 10, 2023 2:54 PM TECHNIQUE: Frontal view of the chest was obtained. FINDINGS: Cardiac silhouette is again noted to be enlarged. Tunneled hemodialysis catheter the right chest is stable in position. Central pulmonary vasculature is slightly less prominent. There is no gross lobar consolidation. No large pleural effusion. No pneumothorax. XR/XR chest 1V IMPRESSION: No acute pulmonary pathology. Electronically signed by: Ata Lagunas MD 11/11/2023 07:45 AM EDT
--- NOTE | ~2023-11-09 | XR_ITS ---
EXAMINATION: XR CHEST CLINICAL INFORMATION: Fever COMPARISON: X-ray 11/02/2023 TECHNIQUE: 2, frontal view of the chest was obtained. FINDINGS: Right CVC tip projects over the right atrium. Cardiac leads overlie the chest. Low lung volumes. There is bronchial wall thickening and hazy opacities in the right mid/lower lung. No dense consolidation is evident in the retrocardiac region in the left lower lung. No significant effusion or pneumothorax. XR/XR chest 1V IMPRESSION: Right mid and lower lung bronchial wall thickening and hazy opacities could reflect infectious or inflammatory process. No dense consolidation is evident in the retrocardiac region on the frontal radiograph. Electronically signed by: Babak Cloud MD 11/10/2023 03:20 PM EDT
--- NOTE | ~2023-11-09 | XR_ITS ---
EXAMINATION: XR CHEST CLINICAL INFORMATION: Hypoxia COMPARISON: Prior chest October 2023 TECHNIQUE: Frontal view of the chest was obtained. FINDINGS: Central venous catheter at SVC right atrial junction unchanged. Decreased lung volumes unchanged. Cardiomediastinal silhouette enlarged but unchanged. XR/XR chest 1V IMPRESSION: Low lung volumes unchanged. Large cardiomediastinal silhouette unchanged. Electronically signed by: Chaparro Macdonald MD 11/12/2023 02:07 PM EDT
--- NOTE | ~2023-11-09 | XR_ITS ---
EXAMINATION: XR CHEST x2 CLINICAL INFORMATION: ETT and OGT tube placement COMPARISON: Chest radiograph 11/12/2023 TECHNIQUE: There are 2 portable Frontal view of the chest submitted. One is time stamped 1:43 PM and the other is time stamped 1:45 PM. The 1:45 PM radiograph is labeled #2, presumably acquired after the first radiograph FINDINGS: The first image demonstrates an ET tube that is 7.4 cm above the yara whereas the second submitted image the ET tube is 3.9 cm above the yara. An NG tube is present on both images extending into the stomach with the tip beyond the field of view. A tunneled right jugular PermCath has its tip at the SVC/RA junction. The heart is enlarged. There is no evidence of CHF. Some left basilar atelectasis is present. XR/XR chest 1V IMPRESSION: 1. ET tube 3.9 cm above the yara on the final image. 2. NG tube extends into the stomach. 3. Tunneled right jugular PermCath in good position. Electronically signed by: Kareem Weathers MD 11/12/2023 03:30 PM EDT
--- NOTE | ~2023-11-09 | IR_ITS ---
CLINICAL HISTORY: End-stage renal disease. The patient presents to interventional radiology for placement of a tunneled central venous catheter for hemodialysis. PROCEDURES: 1. Real-time ultrasound-guided access into the left internal jugular vein after documentation of selected vessel patency, and permanent imaging storing in the patient record. 2. Placement of a 14.5 fr 27 cm tunneled, dual-lumen hemodialysis catheter. Clinician: Michele Garcia PA-C MEDICATIONS: -Fentanyl 75 mcg, Lidocaine 1% 10 mL SQ. -Antibiotics: Ancef -For additional details, please see nursing flowsheet. COMPLICATIONS: None. ESTIMATED BLOOD LOSS: <5 ml SPECIMENS: None FLUOROSCOPY TIME: 2.5 min PROCEDURE NOTE: The procedure, risks, benefits, and alternatives were carefully explained to patient, and written informed consent was obtained. The patient was placed supine on the fluoroscopy table. A timeout was performed. The left neck and chest was prepped and draped in usual sterile fashion. Local anesthesia was administered to the access site with lidocaine. Under ultrasound guidance, the left internal jugular vein was accessed with a 5 Fr micropuncture set. A 0.035 in wire was advanced to the IVC to maintain access during the tunneling process. Next, subcutaneous lidocaine was administered to the chest. Using blunt dissection, a subcutaneous tunnel was created that connects from the upper chest to the venotomy site. The dialysis catheter was pulled through the tunnel. The tract in the vein was dilated and a peel-away sheath was advanced over the wire. The catheter was advanced through the sheath, which was subsequently peeled away. The catheter was tested, flushed, and sutured to the skin with its tip in the high right atrium. A permanent fluoroscopic image of the chest was saved to PACS. The catheter ports were packed with heparin per routine protocol. FINDINGS: 1. Patent left internal jugular vein. 2. Placement of a tunneled, dual-lumen hemodialysis catheter as above. 3. Catheter flushes and aspirates very well with a 10 mL syringe. No pneumothorax. IR/IR cvc insert central tunnel IMPRESSION: Placement of a tunneled hemodialysis catheter in the left internal jugular vein. PLAN: -The catheter may be used immediately. This procedure was performed by Michele Garcia PA-C, and directly supervised by Dr. Maria. Electronically signed by: Jose Manuel Maria MD 12/06/2023 01:52 PM EDT
--- NOTE | ~2023-11-09 | XR_ITS ---
EXAMINATION: XR CHEST CLINICAL INFORMATION: Hypoxia COMPARISON: Chest radiograph from 11/10/2023 TECHNIQUE: Frontal view of the chest was obtained. FINDINGS: Right-sided tunneled dialysis catheter terminating the right atrium. Enlarged cardiomediastinal silhouette. Bilateral low lung volumes. Pulmonary vascular prominence. Slight elevation right hemidiaphragm. No pneumothorax. Trachea is midline. No large pleural effusion. Osseous structures are intact. Soft tissues are unremarkable. XR/XR chest 1V IMPRESSION: 1. Right-sided tunneled dialysis catheter terminating the right atrium. 2. Enlarged cardiomediastinal silhouette. 3. Bilateral low lung volumes. 4. Pulmonary vascular prominence. 5. Slight elevation right hemidiaphragm. Electronically signed by: Nakul Fabian MD 11/11/2023 04:21 PM EDT
--- NOTE | ~2023-11-09 | CT_ITS ---
EXAMINATION: CT angio chest PE protocol (accession [id number]), CT abdomen pelvis w IV con (accession [id number]) CLINICAL INFORMATION: rule out PE COMPARISON: CT abdomen from December 17, 2022 TECHNIQUE: Prior to contrast administration, noncontrast localization images were obtained. Subsequently, multidetector volumetric imaging was performed from the thoracic inlet to below the pubic symphysis following the administration of 85 mL Omnipaque 350 intravenous contrast. No contrast reaction reported Sagittal, coronal, and MIP oblique sagittal reformatted images were obtained on the CT workstation, uploaded to PACS, and reviewed. This CT examination was performed using dose optimization techniques as appropriate, variously including the following: * Automated exposure control * Adjustment of mA and/or kV according to patient size (this includes techniques or standardized protocols for targeted exams where dose is matched to indication/reason for exam; i.e. extremities or head) Use of iterative reconstruction technique Total exam dose-length product 414 mGy-cm for the chest and 1097 mGy-cm for the abdomen and pelvis FINDINGS: Patient is intubated with nasogastric tube and right jugular central venous catheter seen. QUALITY OF STUDY/CONTRAST BOLUS: Satisfactory. PULMONARY ARTERIES: No central or segmental pulmonary emboli. THORACIC AORTA: No aneurysm or dissection. LUNG: There are bibasilar atelectasis and trace of pleural effusion. MEDIASTINUM: Normal heart size. No pericardial effusion. No hilar or mediastinal lymphadenopathy. No evidence of septal bowing or right heart strain. CHEST WALL/AXILLA: No axillary or internal mammary lymphadenopathy. ABDOMEN/PELVIS: LIVER, GALLBLADDER, BILIARY TREE: The liver is heterogeneous and surrounded by ascites, extending along the right flank. Gallbladder is surgically absent. Large amount of ascites extending into the pelvis PANCREAS: Normal; no mass or surrounding fluid. SPLEEN: Spleen is lobulated surrounded by ascites ADRENAL GLANDS: Normal; no mass. KIDNEYS AND URETERS: The kidneys are normal in size, shape, and attenuation. No hydronephrosis, hydroureter or calculi seen. No perinephric stranding. BLADDER: Urinary bladder decompressed. PELVIC VISCERA: There is a large amount of ascites uterus is unremarkable. GASTROINTESTINAL TRACT: Stomach is partially decompressed via NG tube. Loops of colon are unremarkable. There is no bowel obstruction or perforation. The appendix is not identified . PERITONEAL SPACE: As reported there is large amount of ascites mostly along the right flank and pelvis is seen on the left as well ABDOMINAL WALL: There is subcutaneous anasarca seen in the lower abdomen LYMPHOVASCULAR STRUCTURES: Lymph nodes: Normal. Vascular: Calcifications seen in renal vasculature, aorta is not dilated. Calcification seen through the splenic vasculature. OSSEOUS STRUCTURES: No suspicious sclerotic or lytic bone lesions are identified. CT/CT abdomen pelvis w IV con IMPRESSION: 1. No evidence of pulmonary embolism. 2. Bibasilar atelectasis and trace of pleural effusion. 3. Large amount of ascites. 4. Heterogeneous liver, status post cholecystectomy. VTE: negative. Electronically signed by: Pat Cortez MD 11/14/2023 04:54 PM EDT
--- NOTE | ~2023-11-09 | CT_ITS ---
EXAMINATION: CT angio chest PE protocol (accession [id number]), CT abdomen pelvis w IV con (accession [id number]) CLINICAL INFORMATION: rule out PE COMPARISON: CT abdomen from December 17, 2022 TECHNIQUE: Prior to contrast administration, noncontrast localization images were obtained. Subsequently, multidetector volumetric imaging was performed from the thoracic inlet to below the pubic symphysis following the administration of 85 mL Omnipaque 350 intravenous contrast. No contrast reaction reported Sagittal, coronal, and MIP oblique sagittal reformatted images were obtained on the CT workstation, uploaded to PACS, and reviewed. This CT examination was performed using dose optimization techniques as appropriate, variously including the following: * Automated exposure control * Adjustment of mA and/or kV according to patient size (this includes techniques or standardized protocols for targeted exams where dose is matched to indication/reason for exam; i.e. extremities or head) Use of iterative reconstruction technique Total exam dose-length product 414 mGy-cm for the chest and 1097 mGy-cm for the abdomen and pelvis FINDINGS: Patient is intubated with nasogastric tube and right jugular central venous catheter seen. QUALITY OF STUDY/CONTRAST BOLUS: Satisfactory. PULMONARY ARTERIES: No central or segmental pulmonary emboli. THORACIC AORTA: No aneurysm or dissection. LUNG: There are bibasilar atelectasis and trace of pleural effusion. MEDIASTINUM: Normal heart size. No pericardial effusion. No hilar or mediastinal lymphadenopathy. No evidence of septal bowing or right heart strain. CHEST WALL/AXILLA: No axillary or internal mammary lymphadenopathy. ABDOMEN/PELVIS: LIVER, GALLBLADDER, BILIARY TREE: The liver is heterogeneous and surrounded by ascites, extending along the right flank. Gallbladder is surgically absent. Large amount of ascites extending into the pelvis PANCREAS: Normal; no mass or surrounding fluid. SPLEEN: Spleen is lobulated surrounded by ascites ADRENAL GLANDS: Normal; no mass. KIDNEYS AND URETERS: The kidneys are normal in size, shape, and attenuation. No hydronephrosis, hydroureter or calculi seen. No perinephric stranding. BLADDER: Urinary bladder decompressed. PELVIC VISCERA: There is a large amount of ascites uterus is unremarkable. GASTROINTESTINAL TRACT: Stomach is partially decompressed via NG tube. Loops of colon are unremarkable. There is no bowel obstruction or perforation. The appendix is not identified . PERITONEAL SPACE: As reported there is large amount of ascites mostly along the right flank and pelvis is seen on the left as well ABDOMINAL WALL: There is subcutaneous anasarca seen in the lower abdomen LYMPHOVASCULAR STRUCTURES: Lymph nodes: Normal. Vascular: Calcifications seen in renal vasculature, aorta is not dilated. Calcification seen through the splenic vasculature. OSSEOUS STRUCTURES: No suspicious sclerotic or lytic bone lesions are identified. CT/CT angio chest PE protocol IMPRESSION: 1. No evidence of pulmonary embolism. 2. Bibasilar atelectasis and trace of pleural effusion. 3. Large amount of ascites. 4. Heterogeneous liver, status post cholecystectomy. VTE: negative. Electronically signed by: Pat Cortez MD 11/14/2023 04:54 PM EDT
--- NOTE | ~2023-11-09 | XR_ITS ---
EXAMINATION: XR CHEST x2 CLINICAL INFORMATION: ETT and OGT tube placement COMPARISON: Chest radiograph 11/12/2023 TECHNIQUE: There are 2 portable Frontal view of the chest submitted. One is time stamped 1:43 PM and the other is time stamped 1:45 PM. The 1:45 PM radiograph is labeled #2, presumably acquired after the first radiograph FINDINGS: The first image demonstrates an ET tube that is 7.4 cm above the yara whereas the second submitted image the ET tube is 3.9 cm above the yara. An NG tube is present on both images extending into the stomach with the tip beyond the field of view. A tunneled right jugular PermCath has its tip at the SVC/RA junction. The heart is enlarged. There is no evidence of CHF. Some left basilar atelectasis is present. XR/XR chest 1V IMPRESSION: 1. ET tube 3.9 cm above the yara on the final image. 2. NG tube extends into the stomach. 3. Tunneled right jugular PermCath in good position. Electronically signed by: Kareem Weathers MD 11/12/2023 03:30 PM EDT
[2023-11-09 21:16] VITALS: BP 220/120; PULSE 80; O2SAT 98
--- NOTE | 2023-11-09 21:18 | ECG_ITS ---
Test Reason : FALL Blood Pressure : / mmHG Vent. Rate : 081 BPM Atrial Rate : 081 BPM P-R Int : 170 ms QRS Dur : 150 ms QT Int : 464 ms P-R-T Axes : 046 -19 061 degrees QTc Int : 539 ms Normal sinus rhythm Possible Left atrial enlargement Right bundle branch block Abnormal ECG When compared with ECG of 06-NOV-2023 22:20, Left anterior fascicular block is no longer Present Nonspecific T wave abnormality no longer evident in Inferior leads Referred By: Generic ED Physician Electronically Signed By:JULIÁN CANCINO
[2023-11-09 21:20] VITALS: BP 238/117; PULSE 82; RESP 16; TEMP 36.4; O2SAT 98; BMI 32.4
[2023-11-09 21:46] LABS: MANUAL DIFF FLAG NO
[2023-11-09 21:48] LABS: Basophils Percent Auto 0.7 % (0-2); Eosinophils Absolute Auto 0.1 X10*3/uL (0.0-0.4); Eosinophils Percent Auto 2.8 % (0-4); Hematocrit 25.1 % (37.0-47.0); Hemoglobin 8.3 g/dl (12.0-16.0); Imm Gran Abs Auto 0.04 X10*3/uL (0.00-0.03); Imm Gran Pct Auto 0.9 % (0.0-0.4); Lymphocytes Absolute Auto 0.6 X10*3/uL (1.2-4.9); Lymphocytes Percent Auto 12.3 % (20-40); Mean Corpuscular HGB Conc 33.1 g/dl (31.0-35.0); Mean Corpuscular Hemoglobin 30.2 pg (27.0-33.0); Mean Corpuscular Volume 91.3 fL (80.0-98.0); Mean Platelet Volume 11.3 fL (9.4-12.3); Monocytes Absolute Auto 0.4 X10*3/uL (0.1-1.2); Monocytes Percent Auto 7.9 % (2-11); Neutrophils Absolute Auto 3.5 x10*3/uL (2.0-8.3); Neutrophils Percent Auto 75.4 % (45-73); Platelet Count 152 X10*3/uL (160-400); Red Blood Count 2.75 X10*6/uL (4.20-5.50); Red Cell Distribution Width 18.8 % (11.0-16.0); White Blood Count 4.6 X10*3/uL (4.8-10.8)
[2023-11-09 21:53] LABS: INTERNATIONAL NORM RATIO 1.2 (0.9-1.1); Prothrombin Time 14.5 SEC (11.1-13.3)
[2023-11-09 22:06] VITALS: BP 188/100; PULSE 81; RESP 12; TEMP 36.6; O2SAT 96
[2023-11-09 22:08] LABS: Troponin-I High Sensitivity 27.4 ng/L (<3.5-17.0)
[2023-11-09 22:17] LABS: Alanine Aminotransferase 12 U/L (0-31); Albumin Level 3.6 g/dL (3.5-5.0); Alkaline Phosphatase 217 U/L (39-117); Anion Gap 21 (12-20); Aspartate Amino Transferase 18 U/L (5-31); Bilirubin Total 1.1 mg/dL (0.0-1.0); Blood Urea Nitrogen 94 mg/dL (9-16); Calcium 7.5 mg/dL (8.4-10.2); Carbon Dioxide 16 mmol/L (22-29); Chloride 104 mmol/L (96-108); Creatinine Clr Calc Pharmacy 8.2; Estimated Glomerular Filt Rate 4; Glucose Random 121 mg/dL (60-115); Magnesium 3.1 mg/dL (1.6-2.6); Potassium 5.4 mmol/L (3.3-5.1); Sodium 136 mmol/L (135-145); Total Protein 8.5 g/dL (6.5-8.0)
--- NOTE | 2023-11-09 23:39 | ED_ITS ---
HPI - Fall General Chief Complaint: Fall Stated Complaint: Missed dialysis - leg pain Time Seen by Provider: 11/09/23 23:39 Source: patient History of Present Illness ED Provider: Dr. Tommy Maxwell HPI Narrative: 33-year-old female with past medical history of ESRD on HD (refuses to go on Saturdays), multiple hospitalizations due to noncompliance with hemodialysis, diabetic retinopathy with blindness, peripheral vascular disease (s/p bilat transmetatarsal amputation), poorly controlled hypertension due to noncompliance with medications, chronic respiratory failure on supplemental oxygen, HFrEF, mood disorder, and chronic pain with opiate seeking behavior presents for back pain who presents emergency department for evaluation of fall at home. Patient states she was in her bathroom when she lost her balance and fell. She states she landed on her lower back. She denied any head injury or loss of consciousness. She states that she was able to get up but was unable to walk and came to emergency department by ambulance. She was currently complaining of constant, severe, lower back pain which is worse with movement. Patient states that she missed her dialysis appointment on Sunday and this week. She states she feels short of breath and believes that she was fluid overloaded. Patient can not tell me why she missed dialysis. Patient was seen in the emergency department on 11/2023 (3 days prior to evaluation) for evaluation of back pain. She did receive IV Dilaudid that time her pain. Patient had no significant electrolyte abnormalities and despite missing her dialysis on Sunday she was discharged home and advised to keep her dialysis appointment on which she missed. Related Data Home Medications ?Medication ?Instructions ?Recorded ?Confirmed carvedilol 12.5 mg tablet 12.5 mg PO BID 06/05/23 11/10/23 torsemide 20 mg tablet 40 mg PO BID 06/05/23 11/10/23 calcium carbonate (Calcium Antacid) 1 tab PO TIDWM 08/28/23 11/10/23 diphenhydramine HCl 12.5 mg/5 mL 25 mg PO BEDTIME 10/08/23 11/10/23 oral elixir nifedipine 60 mg tablet,extended 60 mg PO DAILY 10/08/23 11/10/23 release 24 hr Previous Rx's ?Medication ?Instructions ?Recorded off loading boot #1 ea 03/14/23 ondansetron 4 mg disintegrating 4 mg PO Q8H PRN nausea and 10/19/23 tablet vomiting #14 tabs oxycodone 5 mg tablet 5 mg PO Q6H PRN pain, severe #20 10/19/23 tabs ferrous sulfate 324 mg (65 mg 324 mg PO BID #120 tabs 11/05/23 iron) tablet,delayed release hydralazine 50 mg tablet 50 mg PO TID #90 tabs 11/05/23 Allergies Allergy/AdvReac Type Severity Reaction Status Date / Time morphine [MORPHINE] Allergy Intermediate Itching Verified 11/09/23 21:22 azithromycin [From Zithromax] Allergy Hives Verified 11/09/23 21:22 gabapentin Allergy Facial Verified 11/09/23 21:22 Swelling tramadol Allergy Facial Verified 11/09/23 21:22 Swelling vancomycin Allergy Anaphylaxis Verified 11/09/23 21:22 Review of Systems 2 Review of Systems: Yes all other systems are reviewed and are negative PMFSH Past Medical History Medical History Chronic foot ulcer Plantar ulcer of left foot Major depressive disorder, single episode, severe ESRD (end stage renal disease) Non-compliance with renal dialysis Hypertensive urgency MDD (major depressive disorder), recurrent episode MDD (major depressive disorder) Renal failure Foot ulcer CKD (chronic kidney disease) Hypertension Diabetic foot Hyperkalemia Vomiting Renal failure Hypertension Migraine Chronic pain ESRD on dialysis Non-compliance with renal dialysis Hypertension End-stage renal disease (ESRD) Gastroparesis Diabetic foot ulcer associated with type 2 diabetes mellitus Hypertensive emergency Diabetes ESRD needing dialysis Cardiomyopathy HFrEF (heart failure with reduced ejection fraction) Metabolic acidosis delivery delivered Anemia in chronic kidney disease (CKD) Anemia CKD (chronic kidney disease) Headache, migraine Abnormal finding on echocardiogram Elevated troponin Chest pain Acute worsening of stage 3 chronic kidney disease Generalized edema Sepsis Cellulitis Pleural effusion CHF (congestive heart failure) (~06/07/22) Tachycardia Atypical chest pain Bone infection PAD (peripheral artery disease) Severe anemia Cellulitis and abscess of foot DM foot ulcer Osteomyelitis Asthma Depression with anxiety Diabetic retinopathy Type 2 diabetes mellitus with hyperglycemia, with long-term current use of insulin Blind right eye Diabetes Back pain Surgical History Tubal ligation status Previous section Hx laparoscopic cholecystectomy Hx of surgical procedure (~09/11/23) 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 Family History Family History Mother Coronary artery disease Myocardial infarction Stroke Diabetes mellitus Father Myocardial infarction Social History Social History Household Members: Family Household Members Other:: ssiter /[employer] Housing: Apartment Do you presently have visiting nurse or other home services: No Unable to assess alcohol history related to: Unknown Alcohol intake: never 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 Patient Tobacco Use Status: Never used Tobacco Smoked in Last 30 Days: No e-Cigarette/Vaping Use: Never Used Second Hand Smoke Exposure: No Use of substances other than those prescribed or required for medical reasons: No Advance Directives: Yes Advance Directives on File: Yes Advance Directives Date on File: 09/04/23 Do you have a plan to hurt others: No Plan service: No Current occupational status: unemployed and disabled Gender identity: Female Physical Exam 2 Vital Signs: Vital Signs: Last Vital Signs Temp 97.9 F 11/10/23 06:30 Pulse 80 11/10/23 10:23 Resp 20 11/10/23 06:30 BP 180/100 H 11/10/23 10:25 Pulse Ox 20 L 11/10/23 06:30 O2 Del Method Room Air 11/10/23 06:30 BMI result Body Mass Index 32.4 Vital signs revealed an elevated blood pressure of 188/100, O2 saturation was 96% on room air Exam: General: Awake, alert in no distress Head: Normocephalic, atraumatic EENT: Left pupil 4 mm and reactive, right eye blind, Lids normal, sclera normal, conjunctiva normal, nose normal , ears normal, throat without erythema or exudates Neck: Supple, no adenopathy Lung: breath sounds symmetric, no wheezing, rales or rhonchi Chest: symmetric movement, nontender Heart: regular rate and rhythm, normal S1, S2 no murmurs or rubs Abdomen: soft, non-tender, nondistended, normal bowel sounds Back: no point vertebral tenderness, patient does have tenderness palpation of the paraspinal muscles in the lumbar sacral area with no obvious ecchymosis Neuro: Awake, alert, oriented, normal speech, cranial nerves intact, moves all extremities symmetrically Psych: Pleasant, cooperative Medications Administered Generic Name Dose Route Start Last Admin Trade Name Brandon PRN Reason Stop Dose Admin Carvedilol 12.5 mg 11/10/23 09:00 11/10/23 10:23 Carvedilol 12.5 Mg Tablet PO 12.5 mg BID [facility] Administration Protocol Ferrous Sulfate 324 mg 11/10/23 09:00 11/10/23 10:24 Ferrous Sulfate 324 Mg Tablet.Dr PO 324 mg BID [facility] Administration Heparin Sodium (Porcine) 5,000 unit 11/10/23 06:00 11/10/23 06:14 Heparin Sodium,Porcine 5,000 Unit/Ml Vial SUBCUT Not Given Q8H [facility] Hydralazine HCl 50 mg 11/10/23 09:00 11/10/23 10:24 Hydralazine Hcl 50 Mg Tablet PO 50 mg TID [facility] Administration Protocol Insulin Human Lispro 0 unit 11/10/23 07:30 11/10/23 09:21 Insulin Lispro 100 Unit/Ml 3 Ml Vial SUBCUT Not Given QIDACHS [facility] Protocol Nifedipine 60 mg 11/10/23 09:00 11/10/23 10:25 Nifedipine Er 60 Mg Tab.Er.24 PO 60 mg DAILY [facility] Administration Protocol Sodium Chloride 3 ml 11/10/23 08:00 11/10/23 09:21 0.9 % Sodium Chloride Flush 3 Ml Syringe IVFLUSH 3 ml QSHIFT [facility] Administration Torsemide 40 mg 11/10/23 09:00 11/10/23 10:25 Torsemide 20 Mg Tablet PO 20 mg BID [facility] Administration Protocol Discontinued Medications Generic Name Dose Route Start Last Admin Trade Name Brandon PRN Reason Stop Dose Admin Clonidine HCl 0.1 mg 11/10/23 03:13 11/10/23 04:12 Clonidine Hcl 0.1 Mg Tablet PO 11/10/23 03:14 0.1 mg ONCE STA Administration Protocol Diphenhydramine HCl 50 mg 11/10/23 00:03 11/10/23 00:39 Diphenhydramine Hcl 50 Mg/Ml Vial IM 11/10/23 00:04 50 mg ONCE ONE Administration Hydromorphone HCl 1 mg 11/10/23 00:03 11/10/23 00:40 Hydromorphone Hcl 1 Mg/Ml Syringe IM 11/10/23 00:04 1 mg ONCE ONE Administration Protocol Sodium Zirconium Cyclosilicate 10 gm 11/10/23 00:03 11/10/23 00:53 Sodium Zirconium Cyclosilicate 10 Gm Powd.Pack PO 11/10/23 00:04 10 gm ONCE ONE Administration Medical Decision Making Medical Decision Making MDM Narrative: 33-year-old female with past medical history of ESRD on HD (refuses to go on Saturdays), multiple hospitalizations due to noncompliance with hemodialysis, diabetic retinopathy with blindness, peripheral vascular disease (s/p bilat transmetatarsal amputation), poorly controlled hypertension due to noncompliance with medications, chronic respiratory failure on supplemental oxygen, HFrEF, mood disorder, and chronic pain with opiate seeking behavior presents for back pain who presents emergency department for evaluation of fall at home-she lost her balance while she was in the bathroom, denied head injury with no loss of conscious, complaining of moderate to severe back pain which is chronic but exacerbated by her fall. Patient was seen in the emergency department 11/06/2023 for back pain as well. Patient was both of her dialysis appointments on Sunday and and states she feels like she is fluid overloaded in his short of breath Differential diagnosis: ?Includes but is not limited to back contusion, musculoskeletal injury, vertebral fracture, chronic back pain, electrolyte abnormalities, anemia, fluid overload secondary to noncompliance with dialysis Following evaluation was ordered: CBC, CMP, troponin, PT/INR magnesium, 12 EKG Patient was initially treated with the following: Dilaudid 1 mg IM, Benadryl 50 mg IM Course: 00:18 The patient did have pain with palpation of her lower back but no point tenderness over vertebrae therefore did not think that x-rays needed to be obtained. Patient seen frequently for chronic back pain. Patient's laboratory evaluation did reveal elevated potassium of 5.4 and elevated BUN and creatinine consistent with her chronic kidney disease. Patient's troponin was elevated at 27.4 with a secondary to her kidney disease she has had similar elevations in the past. The patient did missed 2 dialysis appointments today and her next dialysis appointment would be 3 days from now. I will discuss the patient's situation with the covering sound designer, Dr. Lonnie Sanchez. 02:17 I did discuss the patient's presentation with the covering sound designer, Dr. Lonnie Sanchez and he recommended that the patient be admitted to the hospitalist service and can be dialyzed this morning. I did discuss the patient's presentation over tiger text with the covering hospitalist, Dr. Saran Maria. Admission/Observation Consideration of admission/observation: Escalation of care including admission/observation considered (yes) Consult Healthcare Provider Management of the patient was discussed with: Glost Tile Sorter (Nephrology) Lab Data MDM Lab Attestation statement: I reviewed the patient's lab results. 11/09/23 21:39 11/09/23 21:39 Labs: Lab Results 11/09/23 Range/Units 21:39 WBC 4.6 L (4.8-10.8) X10*3/uL RBC 2.75 L (4.20-5.50) X10*6/uL Hgb 8.3 L (12.0-16.0) g/dl Hct 25.1 L (37.0-47.0) % MCV 91.3 (80.0-98.0) fL MCH 30.2 (27.0-33.0) pg MCHC 33.1 (31.0-35.0) g/dl RDW 18.8 H (11.0-16.0) % Plt Count 152 L (160-400) X10*3/uL MPV 11.3 (9.4-12.3) fL Immature Gran % (Auto) 0.9 H (0.0-0.4) % Neut % (Auto) 75.4 H (45-73) % Lymph % (Auto) 12.3 L (20-40) % [place] % (Auto) 7.9 (2-11) % Eos % (Auto) 2.8 (0-4) % Baso % (Auto) 0.7 (0-2) % Lymph # (Auto) 0.6 L (1.2-4.9) X10*3/uL [place] # (Auto) 0.4 (0.1-1.2) X10*3/uL Eos # (Auto) 0.1 (0.0-0.4) X10*3/uL Baso # (Auto) 0.0 (0.0-0.2) X10*3/uL Abs Immat Gran (auto) 0.04 H (0.00-0.03) X10*3/uL Absolute Neuts (auto) 3.5 (2.0-8.3) x10*3/uL Absolute Nucleated RBC 0.000 (0.0-0.012) X10*3/uL Nucleated RBC % (auto) 0.0 (0.0-0.2) /100WBC PT 14.5 H (11.1-13.3) SEC INR 1.2 H (0.9-1.1) Sodium 136 (135-145) mmol/L Potassium 5.4 H (3.3-5.1) mmol/L Chloride 104 (96-108) mmol/L Carbon Dioxide 16 L (22-29) mmol/L Anion Gap 21 H (12-20) BUN 94 H (9-16) mg/dL Creatinine 10.89 H* (0.5-1.4) mg/dL Estim Creat Clear Calc 8.2 Estimated GFR 4 Random Glucose 121 H (60-115) mg/dL Calcium 7.5 L (8.4-10.2) mg/dL Magnesium 3.1 H (1.6-2.6) mg/dL Total Bilirubin 1.1 H (0.0-1.0) mg/dL AST 18 (5-31) U/L ALT 12 (0-31) U/L Alkaline Phosphatase 217 H (39-117) U/L Troponin I High Sens 27.4 H D (<3.5-17.0) ng/L Total Protein 8.5 H (6.5-8.0) g/dL Albumin 3.6 (3.5-5.0) g/dL Independent Interpretation I performed an independent interpretation of an: EKG Interpretation: My interpretation patient's 12 EKG done at 21:20 hours is as follows: Normal sinus rhythm with a rate of 81, normal MI interval, prolonged QRS duration of 150 milliseconds, prolonged QTC of 539 milliseconds, right bundle-branch block, no significant ST segment elevation or depression, no peaked T-waves, no PACs no PVCs External Record Review External record reviewed: Inpatient record Chronic Conditions Patient?s care impacted by: Hypertension and Other (End-stage renal disease) Critical Care Time Critical Care Time Critical Care Time: Yes Total Critical Care Time: 45 Attestation: Critical Care: The patient was critically ill with a high probability of imminent or life threatening deterioration. I spent greater than 30 minutes of discontinuous time evaluating the patient,delivering critical care at the bedside, discussing and evaluating pertinent data with consultants. Critical care time does not include time spent performing separately billable procedures or teaching. Total time spent performing critical care was 45 minutes. Discharge Plan Discharge Clinical Impression: Fall, Back pain, End stage chronic kidney disease, Noncompliance Patient Disposition: Admitted As Inpatient
[2023-11-10] VITALS (29 sets, daily range): BP systolic 81–198; BP diastolic 38–115; PULSE 72–124; RESP 12–31; TEMP 36.6–38.6; O2SAT 20–97
--- NOTE | 2023-11-10 | ECG_ITS ---
Test Reason : TACHY Blood Pressure : / mmHG Vent. Rate : 113 BPM Atrial Rate : 113 BPM P-R Int : 152 ms QRS Dur : 146 ms QT Int : 342 ms P-R-T Axes : 032 -14 219 degrees QTc Int : 469 ms Sinus tachycardia Right bundle branch block T wave abnormality, consider inferolateral ischemia Abnormal ECG When compared with ECG of 09-NOV-2023 21:20, T wave inversion now evident in Inferior leads T wave inversion more evident in Anterolateral leads Heart rate has increased Referred By: Jacinto Cavazos Electronically Signed By:JULIÁN CANCINO
[2023-11-10] MEDS: diphenhydrAMINE HCL 50 MG/ML VIAL IM (00:39)
[2023-11-10] MEDS: HYDROmorphone HCl 1 MG/ML SYRINGE IM (00:40)
--- NOTE | 2023-11-10 00:44 | PC.NURSE ---
Pt medicated per apr. Pt tolerated well Pt requested and given wet face cloth Pt requested and given drink Plan of care ongoing.
[2023-11-10] MEDS: Sodium Zirconium Cyclosilicate 10 GM POWD.PACK PO (00:53)
--- NOTE | 2023-11-10 01:34 | PC.NURSE ---
Pt requested and given 2nd pillow Plan of care ongoing.
--- NOTE | 2023-11-10 03:13 | PM.IMHP ---
History of Present Illness Date of Service: 11/10/23 Attending physician on admission: Lele Maria Chief Complaint: Daphney Taylor is a 33 years old woman with past medical history significant for end-stage renal disease on hemodialysis (TTS -usually refusing HD on Saturdays), multiple hospitalization due to noncompliance with hemodialysis, diabetic retinopathy with blindness, PVD, multiple amputations, poorly uncontrolled hypertension, HFrEF, depression and chronic pain was narcotic seeking behavior presents to the emergency department after she sustained a mechanical fall today. Denies any significant trauma secondary to it. She also presented complaining of generalized body pain. She said that the last time she had hemodialysis session was a week ago. I asked why she usually misses multiple hemodialysis session, however she was unable to tell me the reason. However, she told me that she took all her home medications as prescribed and has not missed any of them. Patient mentioned she has an appointment with her primary care physician to address chronic pain control as an outpatient with extended release agents. Denies tobacco smoking, alcohol abuse or illicit drug use. In the ED, she was found to have significant hypertension, last BP is 188/100. There is no tachycardia, fever or tachypnea. O2 sats are normal on room air. Blood workup: CBC is unremarkable. Creatinine is 10.89 (it was 8.91), potassium is 5.4, CO2 16, anion gap 21 and BUN 94. Magnesium is elevated, 3.1. Troponin is 27.4. ECG showed normal sinus rhythm with a heart rate of 81 beats per minutes. ED tx: Dilaudid 3 mg IM (total), Benadryl 50 mg IM, Lokelma 10 g p.o. Review of Systems Review of Systems: All 12 systems were reviewed and normal except as noted in HPI. [facility] Medical History Chronic foot ulcer Plantar ulcer of left foot Major depressive disorder, single episode, severe ESRD (end stage renal disease) Non-compliance with renal dialysis Hypertensive urgency MDD (major depressive disorder), recurrent episode MDD (major depressive disorder) Renal failure Foot ulcer CKD (chronic kidney disease) Hypertension Diabetic foot Hyperkalemia Vomiting Renal failure Hypertension Migraine Chronic pain ESRD on dialysis Non-compliance with renal dialysis Hypertension End-stage renal disease (ESRD) Gastroparesis Diabetic foot ulcer associated with type 2 diabetes mellitus Hypertensive emergency Diabetes ESRD needing dialysis Cardiomyopathy HFrEF (heart failure with reduced ejection fraction) Metabolic acidosis delivery delivered Anemia in chronic kidney disease (CKD) Anemia CKD (chronic kidney disease) Headache, migraine Abnormal finding on echocardiogram Elevated troponin Chest pain Acute worsening of stage 3 chronic kidney disease Generalized edema Sepsis Cellulitis Pleural effusion CHF (congestive heart failure) (~06/07/22) Tachycardia Atypical chest pain Bone infection PAD (peripheral artery disease) Severe anemia Cellulitis and abscess of foot DM foot ulcer Osteomyelitis Asthma Depression with anxiety Diabetic retinopathy Type 2 diabetes mellitus with hyperglycemia, with long-term current use of insulin Blind right eye Diabetes Back pain Family History Mother Coronary artery disease Myocardial infarction Stroke Diabetes mellitus Father Myocardial infarction Surgical History Tubal ligation status Previous section Hx laparoscopic cholecystectomy Hx of surgical procedure (~09/11/23) 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 Social History Household Members: Family Household Members Other:: ssiter /[employer] Housing: Apartment Do you presently have visiting nurse or other home services: No Unable to assess alcohol history related to: Unknown Alcohol intake: never 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 Patient Tobacco Use Status: Never used Tobacco Smoked in Last 30 Days: No e-Cigarette/Vaping Use: Never Used Second Hand Smoke Exposure: No Use of substances other than those prescribed or required for medical reasons: No Advance Directives: Yes Advance Directives on File: Yes Advance Directives Date on File: 09/04/23 Do you have a plan to hurt others: No Plan service: No Current occupational status: unemployed and disabled Gender identity: Female Meds Allergies Allergy/AdvReac Type Severity Reaction Status Date / Time morphine [MORPHINE] Allergy Intermediate Itching Verified 11/09/23 21:22 azithromycin [From Zithromax] Allergy Hives Verified 11/09/23 21:22 gabapentin Allergy Facial Verified 11/09/23 21:22 Swelling tramadol Allergy Facial Verified 11/09/23 21:22 Swelling vancomycin Allergy Anaphylaxis Verified 11/09/23 21:22 Active Medications: Current Medications Acetaminophen (Acetaminophen 325 Mg Tablet) 975 mg PO Q6H PRN PRN Reason: Pain, Mild (Pain Scale 1-3), fever or headache Heparin Sodium (Porcine) (Heparin Sodium,Porcine 5,000 Unit/Ml Vial) 5,000 unit SUBCUT Q8H [facility] Melatonin (Melatonin 3 Mg Tablet) 6 mg PO BEDTIME PRN PRN Reason: Insomnia Oxycodone HCl (Oxycodone Hcl Immed Release 5 Mg Tablet) 5 mg PO Q6H PRN PRN Reason: Pain, Severe (Pain Scale 7-10) Sodium Chloride (0.9 % Sodium Chloride Flush 3 Ml Syringe) 3 ml IVFLUSH QSHIFT [facility] Home Medications ?Medication ?Instructions ?Recorded ?Confirmed ?Last Taken ?Type carvedilol 12.5 mg tablet 12.5 mg PO BID 06/05/23 11/02/23 10/17/23 History torsemide 20 mg tablet 40 mg PO BID 06/05/23 11/02/23 10/17/23 History calcium carbonate (Calcium Antacid) 1 tab PO TIDWM 08/28/23 11/02/23 10/17/23 History diphenhydramine HCl 12.5 mg/5 mL 25 mg PO BEDTIME 10/08/23 11/02/23 10/17/23 History oral elixir nifedipine 60 mg tablet,extended 60 mg PO DAILY 10/08/23 11/02/23 10/17/23 History release 24 hr Physical Exam Vital Signs and Narrative: Vital Signs: Last Vital Signs Temp 97.9 F 11/09/23 22:06 Pulse 81 11/09/23 22:06 Resp 17 11/10/23 00:40 BP 188/100 H 11/09/23 22:06 Pulse Ox 96 11/09/23 22:06 O2 Del Method Room Air 11/09/23 22:06 BMI result Body Mass Index 32.4 Constitutional - Awake and Alert, No apparent distress. Pleasant. Cooperative. HEENT - cloudy corneas. Heart - RRR, No murmur Lungs - Normal lung expansion, Normal respiratory effort, No respiratory distress, CTA bilaterally Abdomen - NT / ND; +BS; No rebound or guarding Extremities - no calf tenderness bilaterally, no swelling. Multiple amputations. Skin - Warm/Dry Neurological - Alert & oriented x3. Normal speech. No focal weakness. Psychological -depressed affect Results Labs 11/09/23 21:39 11/09/23 21:39 Labs: Laboratory Results - last 24 hr 11/09/23 21:39 MCV 91.3 MCH 30.2 MCHC 33.1 RDW 18.8 H Plt Count 152 L MPV 11.3 Immature Gran % (Auto) 0.9 H Neut % (Auto) 75.4 H Lymph % (Auto) 12.3 L [place] % (Auto) 7.9 Eos % (Auto) 2.8 Baso % (Auto) 0.7 Lymph # (Auto) 0.6 L [place] # (Auto) 0.4 Eos # (Auto) 0.1 Baso # (Auto) 0.0 Abs Immat Gran (auto) 0.04 H Absolute Neuts (auto) 3.5 Absolute Nucleated RBC 0.000 Nucleated RBC % (auto) 0.0 PT 14.5 H INR 1.2 H Anion Gap 21 H Estim Creat Clear Calc 8.2 Estimated GFR 4 Random Glucose 121 H Calcium 7.5 L Magnesium 3.1 H Total Bilirubin 1.1 H AST 18 ALT 12 Alkaline Phosphatase 217 H Troponin I High Sens 27.4 H D Total Protein 8.5 H Albumin 3.6 Assessment and Plan (1) Acute on chronic renal failure: Qualifiers: Acute renal failure type: unspecified Chronic kidney disease stage: on chronic dialysis Qualified Code(s): N17.9 - Acute kidney failure, unspecified; N18.6 - End stage renal disease; Z99.2 - Dependence on renal dialysis Status: Acute (2) Hypertension, uncontrolled: Status: Acute (3) Medical non-compliance: Status: Acute Plan Shereen Taylor is a 33 years old woman with PMHx significant for end-stage renal disease on hemodialysis (TTS -usually refusing HD on Saturdays), multiple hospitalization due to noncompliance with hemodialysis, diabetic retinopathy with blindness and PVD with multiple amputations admitted with: Acute on chronic renal failure, noncompliant with hemodialysis. Admit to hospitalist service. Nephrology consult for inpatient hemodialysis. High anion gap metabolic acidosis secondary to above. Continue to monitor CO2 levels and anion gap. Nephrology consult for inpatient hemodialysis. Hyperkalemia, mild. Lokelma given in the emergency department. Continue to monitor K level. HFrEF/cardiomyopathy. No evidence of overload clinically. Continue hemodialysis, beta-mohamud, aspirin and torsemide. Uncontrolled hypertension,. Continue hydralazine, nifedipine, Coreg and torsemide. Type 2 diabetes mellitus. Diabetic diet. Blood glucose monitoring before meals at bedtime. Insulin sliding scale. Chronic pain disorder. Oxycodone as needed for now. Chronic anemia. Continue to monitor. DVT prophylaxis: Heparin Code status: Full Patient will need hospitalization for at least 2 midnight for Quality Stroke Does the patient have a stroke diagnosis?: No VTE Prior VTE?: No VTE Risk Level:: Medical - moderate - high VTE Device Contraindication: Treatment Not Indicated VTE Drug Contraindication: N/A - Med Ordered
[2023-11-10] MEDS: cloNIDine HCL 0.1 MG TABLET PO (04:12)
--- NOTE | 2023-11-10 05:06 | PC.NURSE ---
This RN assumed care @430. Patient refused labs this morning said NO x5 times including saying NO to the wheelchair driver .Dr. Noonan notified. Plan of care ongoing.
--- NOTE | 2023-11-10 06:15 | PC.NURSE ---
Pt refused Heparin subQ this morning.
[2023-11-10 07:33] LABS: Glucose, Whole Blood 86 mg/dL (60-115)
--- NOTE | 2023-11-10 08:06 | PHA.MEDREC ---
Pharmacy Consult ? Medication Reconciliation Pharmacy has completed the medication reconciliation. med rec done using list from discharge on 11/07/23. pt known to this facility and typically non-compliant.
--- NOTE | 2023-11-10 08:51 | P.PNIM_ITS ---
Subjective Subjective Date of Service: 11/10/23 Interval History: no complaints Physical Exam 2 Vital Signs: Vital Signs: Last Vital Signs Temp 97.9 F 11/10/23 06:30 Pulse 72 11/10/23 06:30 Resp 20 11/10/23 06:30 BP 198/105 H 11/10/23 06:30 Pulse Ox 20 L 11/10/23 06:30 O2 Del Method Room Air 11/10/23 06:30 BMI result Body Mass Index 32.4 Exam: General: Awake, alert in no distress Head: Normocephalic, atraumatic EENT: Left pupil 4 mm and reactive, right eye blind, Lids normal, sclera normal, conjunctiva normal, nose normal , ears normal, throat without erythema or exudates Neck: Supple, no adenopathy Lung: breath sounds symmetric, no wheezing, rales or rhonchi Chest: symmetric movement, nontender Heart: regular rate and rhythm, normal S1, S2 no murmurs or rubs Abdomen: soft, non-tender, nondistended, normal bowel sounds Back: no point vertebral tenderness, patient does have tenderness palpation of the paraspinal muscles in the lumbar sacral area with no obvious ecchymosis Neuro: Awake, alert, oriented, normal speech, cranial nerves intact, moves all extremities symmetrically Psych: Pleasant, cooperative Objective Data Active Medications Acetaminophen (Acetaminophen 325 Mg Tablet) 975 mg PO Q6H PRN PRN Reason: Pain, Mild (Pain Scale 1-3), fever or headache Calcium Carbonate (Calcium Carbonate 750 Mg Tab.Chew) 300 mg PO TIDWM [facility] Carvedilol (Carvedilol 12.5 Mg Tablet) 12.5 mg PO BID [facility]; Protocol Diphenhydramine HCl (Diphenhydramine Hcl 12.5 Mg/5 Ml Liquid) 25 mg PO BEDTIME [facility] Ferrous Sulfate (Ferrous Sulfate 324 Mg Tablet.Dr) 324 mg PO BID [facility] Glucose (Glucose Gel 15 Gm Gel..Gram.) 15 gm PO Q15M PRN; Protocol PRN Reason: per Hypoglycemia Standing Ord. Heparin Sodium (Porcine) (Heparin Sodium,Porcine 5,000 Unit/Ml Vial) 5,000 unit SUBCUT Q8H [facility] Last Admin: 11/10/23 06:14 Dose: Not Given Documented By: DILCIA Non-Admin Reason: Patient Refused Hydralazine HCl (Hydralazine Hcl 50 Mg Tablet) 50 mg PO TID [facility]; Protocol Dextrose (D10) 250 mls @ 750 mls/hr IV Q15M PRN; Protocol PRN Reason: per Hypoglycemia Standing Ord. Insulin Human Lispro (Insulin Lispro 100 Unit/Ml 3 Ml Vial) 0 unit SUBCUT QIDACHS [facility]; Protocol Melatonin (Melatonin 3 Mg Tablet) 6 mg PO BEDTIME PRN PRN Reason: Insomnia Nifedipine (Nifedipine Er 60 Mg Tab.Er.24) 60 mg PO DAILY [facility]; Protocol Ondansetron HCl (Ondansetron Odt 4 Mg Tab.Rapdis) 4 mg TRANSLINGU Q8H PRN PRN Reason: nausea and vomiting Oxycodone HCl (Oxycodone Hcl Immed Release 5 Mg Tablet) 5 mg PO Q6H PRN PRN Reason: Pain, Severe (Pain Scale 7-10) Sodium Chloride (0.9 % Sodium Chloride Flush 3 Ml Syringe) 3 ml IVFLUSH QSHIFT [facility] Torsemide (Torsemide 20 Mg Tablet) 40 mg PO BID [facility]; Protocol Labs 11/09/23 21:39 11/09/23 21:39 Labs: Laboratory Results - last 24 hr 11/09/23 11/10/23 21:39 07:30 MCV 91.3 MCH 30.2 MCHC 33.1 RDW 18.8 H Plt Count 152 L MPV 11.3 Immature Gran % (Auto) 0.9 H Neut % (Auto) 75.4 H Lymph % (Auto) 12.3 L [place] % (Auto) 7.9 Eos % (Auto) 2.8 Baso % (Auto) 0.7 Lymph # (Auto) 0.6 L [place] # (Auto) 0.4 Eos # (Auto) 0.1 Baso # (Auto) 0.0 Abs Immat Gran (auto) 0.04 H Absolute Neuts (auto) 3.5 Absolute Nucleated RBC 0.000 Nucleated RBC % (auto) 0.0 PT 14.5 H INR 1.2 H Anion Gap 21 H Estim Creat Clear Calc 8.2 Estimated GFR 4 POC Glucose 86 Random Glucose 121 H Calcium 7.5 L Magnesium 3.1 H Total Bilirubin 1.1 H AST 18 ALT 12 Alkaline Phosphatase 217 H Troponin I High Sens 27.4 H D Total Protein 8.5 H Albumin 3.6 Assessment and Plan (1) Chronic foot ulcer: Status: Acute (2) Chronic kidney disease: Status: Acute (3) Hypertension, uncontrolled: Status: Acute (4) Medical non-compliance: Status: Acute Plan 33F PMH?ESRD on HD (refuses to go on Saturdays), multiple hospitalizations due to noncompliance with hemodialysis, diabetic retinopathy with blindness, peripheral vascular disease (s/p bilat transmetatarsal amputation), poorly controlled hypertension due to noncompliance with medications, chronic respiratory failure on supplemental oxygen, HFrEF, mood disorder, and chronic pain with opiate seeking behavior presented with fall and electrolyte abnormalities due to missed HD. End-stage renal disease with acute metabolic acidosis and hyperkalemia due to missed HD nephro eval, HD, s/p lokelma, monitor bmp Hypertension continue home medications Coreg, nifedipine, hydralazine and torsemide, stable blood pressure Chronic systolic CHF no acute exacerbation, Continue maintenance diuretics, Coreg Ch. Bilateral heel wound with foul drainage continue dressing change Chronic pain disorder, opiod dependence Complain of chronic back pain mostly localized to left lumbar paravertebral muscles, mid back, no radiation of pain Left leg pain Oxycodone DM not on home medication insulin sliding scale DVT prophylaxis on heparin subQ Full code reason for continued hospitalization:HD pending Quality Stroke Does the patient have a stroke diagnosis?: No VTE Prior VTE?: No VTE Risk Level:: Medical - moderate - high VTE Device Contraindication: Treatment Not Indicated VTE Drug Contraindication: N/A - Med Ordered
--- NOTE | 2023-11-10 09:18 | PC.NURSE ---
Patient refused all her 9 am meds, did vomit a small amount earlier. Spoke with Thelma in dialysis and sent pills in an envelope to give to Thelma in case she will the meds later. refused breakfast. POC 86
[2023-11-10] MEDS: 0.9 % Sodium Chloride Flush 3 ML SYRINGE IVFLUSH ×2 (09:21→23:24)
[2023-11-10] MEDS: carvediloL 12.5 MG TABLET PO (10:23)
[2023-11-10] MEDS: Ferrous Sulfate 324 MG TABLET.DR PO (10:24)
[2023-11-10] MEDS: hydrALAZINE HCl 50 MG TABLET PO ×2 (10:24→15:52)
[2023-11-10] MEDS: NIFEdipine ER 60 MG TAB.ER.24 PO (10:25)
[2023-11-10] MEDS: Torsemide 20 MG TABLET 40 MG PO (10:25)
[2023-11-10] MEDS: oxyCODONE HCl Immed Release 5 MG TABLET PO (10:30)
--- NOTE | 2023-11-10 10:30 | PC.NURSE ---
At 09:20am, patient went to Dialysis for treatment. transported by [facility]
[2023-11-10 13:30] LABS: Glucose, Whole Blood 48 mg/dL (60-115)
--- NOTE | 2023-11-10 13:41 | PC.NURSE ---
at 13:30 patient's POC was 48, 1 cup of OJ with a sugar packet was given, refusing to eat. At 13:35 another cup of OJ given with a sugar packet. tech to recheck POC within 5 minutes.
[2023-11-10 13:49] LABS: Glucose, Whole Blood 41 mg/dL (60-115)
--- NOTE | 2023-11-10 13:52 | PM.EVENT ---
Event Note Date of Service: 11/10/23 Event Note: patient with sepsis unclear etiology, will give dapto and rocpehin, check cultures and lactic acid, ID eval cxr, ua Time Spent With Patient Time: Total time managing care of this patient today ____ minutes.
[2023-11-10] MEDS: Dextrose 10 % 250 ML 750 ML IV ×3 (14:04→18:27)
[2023-11-10] MEDS: ondansetron HCL 4 MG/2 ML VIAL IVPUSH (14:15)
--- NOTE | 2023-11-10 14:37 | PM.SEPBOLA4 ---
Sepsis Bolus Exclusion Sepsis Bolus Exclusion CHF/Renal Failure Date of Occurrence: 11/10/23 This patient met severe sepsis criteria due to the following condition(s):: Hypotension (relative) In my clinical judgement the administration of 30 ml/kg of crystalloid would be detrimental to this patient due to the patient's following conditions:: Stage III or IV Chronic Kidney Disease (GFR<30) and Concern for fluid overload Replace the 30 mls/kg with (Zero amount not acceptable and all fluids for severe sepsis must be given at GREATER than 125 mls/hr) *Note: One of the reynolds must be documented Crystalloids amount given in mls: (rate must be at least 150cc/hr): 500 At a rate of (must be > 125 cchr):: 999
[2023-11-10 14:41] LABS: Glucose, Whole Blood 91 mg/dL (60-115)
--- NOTE | 2023-11-10 14:45 | PC.NURSE ---
Dr Cavazos at bedside, patient was breathing and protecting her airway but lethargic and could not hold her head upright. Sternal rub done by Chela myers tech with no response noted. Rapid response called by this RN due to being so lethargic and needing a monitored bed in the main ED.
--- NOTE | 2023-11-10 15:09 | PC.NURSE ---
pt presents to the ED from overflow s/p rapid response at this time. POC obtained displaying 47mg/dL - admitting provider (dr. harrell) notified/aware. per dr. harrell verbal order, one dose of D50 ampule administered at this time. effectiveness pending.
--- NOTE | 2023-11-10 15:18 | PC.NURSE ---
repeat POC post full amp of 50% dextrose = 141mg/dL. Dr. Cavazos notified/aware.
[2023-11-10] MEDS: 0.9 % Sodium Chloride 500 ML IV ×2 (15:21→20:21)
[2023-11-10] MEDS: DAPTOmycin 700 MG in 0.9 % Sodium Chloride 50 ML 128 MG IV (15:21)
[2023-11-10 15:27] LABS: Hematocrit 25.4 % (37.0-47.0); Hemoglobin 8.2 g/dl (12.0-16.0); Mean Corpuscular HGB Conc 32.3 g/dl (31.0-35.0); Mean Corpuscular Hemoglobin 29.4 pg (27.0-33.0); Mean Platelet Volume 11.3 fL (9.4-12.3); Platelet Count 138 X10*3/uL (160-400); Red Blood Count 2.79 X10*6/uL (4.20-5.50); Red Cell Distribution Width 18.6 % (11.0-16.0)
[2023-11-10 15:31] LABS: White Blood Count 1.7 X10*3/uL (4.8-10.8)
[2023-11-10 15:32] LABS: NRBC Pct Auto 1.2 /100WBC (0.0-0.2)
--- NOTE | 2023-11-10 15:40 | PC.NURSE ---
repeat POC = 65mg/dL. pt started on PRN hypoglycemic protocol. D10 currently infusing via pump at this time. effectiveness pending,. dr. harrell notified/aware.
[2023-11-10] MEDS: cefTRIAXone sodium 1 GM in 0.9 % Sodium Chloride 50 ML IV (15:42)
[2023-11-10 15:53] LABS: Glucose, Whole Blood 141 mg/dL (60-115)
[2023-11-10 15:53] LABS: Glucose, Whole Blood 65 mg/dL (60-115)
[2023-11-10 15:53] LABS: Glucose, Whole Blood 47 mg/dL (60-115)
[2023-11-10 15:55] LABS: Lactic Acid 5.2 mmol/L (0.5-2.0)
--- NOTE | 2023-11-10 15:55 | PC.NURSE ---
critical lab value received at this time. lactic of 5.2 & creatinine of 6.7 - Dr. Cavazso notified/aware.
[2023-11-10 15:56] LABS: Anion Gap 20 (12-20); Blood Urea Nitrogen 52 mg/dL (9-16); Calcium 7.6 mg/dL (8.4-10.2); Carbon Dioxide 15 mmol/L (22-29); Chloride 101 mmol/L (96-108); Creatinine Clr Calc Pharmacy 13.3; Estimated Glomerular Filt Rate 7; Glucose Random 167 mg/dL (60-115); Phosphorus 3.8 mg/dL (2.7-4.5); Potassium 3.3 mmol/L (3.3-5.1); Sodium 133 mmol/L (135-145)
--- NOTE | 2023-11-10 16:06 | PC.NURSE ---
repeat POC post D10 infusion = 136mg/dL. pt remains tachycardic. pt currently on 4L via NC as she was stating that she is not able to breathe. baseline is 2L via NC. pt repositioned upright to promote patent airway. wob noted. pt educated on importance of slowing down breathing. plan of care ongoing. call moore placed within reach.
[2023-11-10 16:08] LABS: Glucose, Whole Blood 136 mg/dL (60-115)
--- NOTE | 2023-11-10 16:38 | PC.NURSE ---
stool sample obtained/sent to lab.
[2023-11-10 17:13] LABS: Glucose, Whole Blood 77 mg/dL (60-115)
[2023-11-10 17:23] LABS: Reflex Lactate? Lactic Acid Added
--- NOTE | 2023-11-10 17:35 | PC.NURSE ---
patient refused for labs to be obtained via phlebotomy at this time.
[2023-11-10 17:48] LABS: CDiff Gene PCR NEGATIVE (Negative)
[2023-11-10 18:15] LABS: Glucose, Whole Blood 60 mg/dL (60-115)
--- NOTE | 2023-11-10 18:27 | PC.NURSE ---
pt remains hypoglycemic at this time. POC = 60mg/dL. another bag of PRN D10 administered per provider order. effectiveness pending.
[2023-11-10 18:51] LABS: ~Lactic Acid-LAB USE ONLY 5.8 mmol/L (0.5-2.0)
[2023-11-10 19:02] LABS: Glucose, Whole Blood 120 mg/dL (60-115)
[2023-11-10] MEDS: 0.9 % Sodium Chloride 500 ML 999 ML IV (19:30)
--- NOTE | 2023-11-10 19:39 | PC.NURSE ---
Messaged provider regarding low blood pressure, bolus previously ordered is infusing. Patient needing 5L to maintain saturations above 90%
[2023-11-10 19:49] LABS: Glucose, Whole Blood 76 mg/dL (60-115)
[2023-11-10 20:11] LABS: Glucose, Whole Blood 86 mg/dL (60-115)
[2023-11-10 20:31] LABS: Reflex Lactate? 2 Y
[2023-11-10 20:51] LABS: Hematocrit 22.8 % (37.0-47.0); Hemoglobin 7.3 g/dl (12.0-16.0); Mean Corpuscular Hemoglobin 29.9 pg (27.0-33.0); Mean Corpuscular Volume 93.4 fL (80.0-98.0); Platelet Count 108 X10*3/uL (160-400); Red Blood Count 2.44 X10*6/uL (4.20-5.50); Red Cell Distribution Width 19.2 % (11.0-16.0); White Blood Count 13.8 X10*3/uL (4.8-10.8)
[2023-11-10] MEDS: cefEPime HCl 1 GM in 0.9 % Sodium Chloride 50 ML IV (21:01)
[2023-11-10 21:02] LABS: Glucose, Whole Blood 100 mg/dL (60-115)
[2023-11-10 21:03] LABS: VBG Base Excess -9.3 mmol/L; VBG pCO2 21 mmHg; VBG pH 7.41 (7.32-7.43); VBG pO2 76 mmHg
--- NOTE | 2023-11-10 21:07 | PC.NURSE ---
Continue to be in contact with hospitalist regarding patient blood pressure. Albumin ordered in addition to cefepime.
[2023-11-10 21:09] LABS: VBG HCO3 14 mmol/L (22-26)
[2023-11-10 21:09] LABS: Venous Blood Gas Refer to POC result
[2023-11-10 21:22] LABS: ~Lactic Acid-LAB USE ONLY 5.2 mmol/L (0.5-2.0)
[2023-11-10 21:23] LABS: Troponin-I High Sensitivity 99.7 ng/L (<3.5-17.0)
[2023-11-10 21:25] LABS: Alanine Aminotransferase 10 U/L (0-31); Albumin Level 2.7 g/dL (3.5-5.0); Alkaline Phosphatase 148 U/L (39-117); Anion Gap 19 (12-20); Aspartate Amino Transferase 21 U/L (5-31); Bilirubin Total 1.2 mg/dL (0.0-1.0); Blood Urea Nitrogen 51 mg/dL (9-16); Calcium 7.2 mg/dL (8.4-10.2); Carbon Dioxide 13 mmol/L (22-29); Chloride 102 mmol/L (96-108); Creatinine Clr Calc Pharmacy 13.4; Estimated Glomerular Filt Rate 7; Glucose Random 98 mg/dL (60-115); Magnesium 1.9 mg/dL (1.6-2.6); Potassium 3.2 mmol/L (3.3-5.1); Sodium 131 mmol/L (135-145); Total Protein 6.4 g/dL (6.5-8.0)
[2023-11-10] MEDS: Albumin Human 25 % 100 ML IV ×2 (21:41→22:22)
--- NOTE | 2023-11-10 21:46 | P.EN_ITS ---
Event Note Date of Service: 11/13/23 Event Note: 7:41 PM - BP 89/38, 500 ml NS given per prior team. Patient is now requiring 5L/min O2 NC. According to nursing CARDIOPULMONARY TECHNOLOGIST activated earlier during the day for low blood glucose. Had HD today. Developed fever spike. Lactic acid almost 6. Tx with daptomycin and ceftriaxone started. 7:55 PM - Evaluated pt at bedside. Looks uncomfortable and persistantly moaning. C/o shortness of breath. Feet examined (please see pics below). CXR and labs ordered. Ceftriaxone changed to cefepime for Pseudomonal coverage. 9:06 PM - [facility] w ICU, Dr. Briggs. Albumin recommended, If hypotension persists pt will be transferred to ICU. Time Spent With Patient Time: Total time managing care of this patient today ____ minutes.
[2023-11-10 22:13] LABS: Influenza A PCR NEGATIVE (Negative); Influenza B PCR NEGATIVE (Negative); Resp Syncy Virus RNA Qual PCR NEGATIVE (Negative); SARS COV2 PCR INHOUSE POSITIVE (Negative)
[2023-11-10 22:55] LABS: Glucose, Whole Blood 78 mg/dL (60-115)
[2023-11-11] VITALS (35 sets, daily range): BP systolic 79–147; BP diastolic 45–86; PULSE 73–95; RESP 14–32; TEMP 34–36.7; O2SAT 87–96; BMI 32.4
--- NOTE | 2023-11-11 00:07 | PC.NURSE ---
Patient transferred to ICU
[2023-11-11] MEDS: Albumin Human 25 % 100 ML 133.33 ML IV ×2 (00:08→01:02)
[2023-11-11] MEDS: Dextrose 10 % 250 ML 750 ML IV ×3 (00:22→20:16)
[2023-11-11 00:26] LABS: ABG Base Excess -9.3 mmol/L; ABG HCO3 14 mmol/L (22-26); ABG pCO2 24 mmHg (32-45); ABG pH 7.37 (7.35-7.45); ABG pO2 47 mmHg (83-108)
[2023-11-11 00:47] LABS: Glucose, Whole Blood 78 mg/dL (60-115)
[2023-11-11] MEDS: ondansetron HCL 4 MG/2 ML VIAL IVPUSH (00:56)
[2023-11-11 01:05] LABS: Appearance Urine Clear; Color Urine Yellow; Glucose Urine UA 250 mg/dL (Negative); Leukocyte Esterase Urine Negative (Negative); Nitrite Urine Negative (Negative); PH 6.5 (5.0-9.0); Specific Gravity - Urine 1.015 (1.005-1.025); UMIC TRIGGER UACC YES; Urine Blood Negative (Negative); Urine Ketones Negative (Negative); Urine Protein >=1000 (4+) mg/dL (Neg-Trace)
[2023-11-11] MEDS: Sodium Bicarbonate 8.4% 150 MEQ in Dextrose 5 % 850 ML 50 MEQ IV (01:05)
[2023-11-11] MEDS: Norepinephrine Bitartrate/D5W 8 MG/250 ML PLAST..BAG 8.55 MG IVCONT (01:27)
[2023-11-11 01:54] LABS: ABG Refer to POC result
--- NOTE | 2023-11-11 01:58 | P.PNCC_ITS ---
Critical Care Event Note Summary Date of Service: 11/11/23 Code activated: No Narrative: This case had a high probability of a clinically significant, sudden, or life threatening deterioration of this patient's condition which required my full and direct attention, intervention and personal management. Critical Care Time (minutes): 60 Comment: Clinical Precedent: 33-year-old female who is well known to this institution, has underlying history of significant medical noncompliance, end-stage renal disease, diabetic retinopathy with blindness of the right eye, peripheral vascular disease, multiple toe amputations, hypertension, HfrEF, depression, chronic pain syndrome and drug-seeking behavior.? Patient had been seen in the emergency room and subsequently admitted to the hospital as she had initially presented status post fall.? Reportedly the patient did not have dialysis for a week, which is not unusual for her. In the emergency room the patient's blood pressure was 180/100, CBC was at baseline, creatinine was 10 point 8, potassium 5.4, CO2 16, anion gap of 21, troponin 27.4.? Patient was treated with Dilaudid 3 mg, Benadryleoncio, Junekelma and was admitted to the hospital for HD. Apparently patient had dialysis today and after her session patient had become hypotensive, there was the question that the patient could probably had too much fluid taken out during her dialysis, so 2.5 L of IV fluids and 2 bags of albumin were given without improvement of her blood pressure. ?She did receive a single dose of daptomycin 750 mg IV x1. ?Lactic acid was above 6, the patient was tachypneic and hypoxic requiring 5 L nasal cannula.? Full workup was started but given the ongoing hypotension, patient was accepted for transfer to the ICU. During my evaluation, patient is sleepy, no respond to questions, following basic commands, appears to be in significant distress, tachypneic and using accessory muscles. PHYSICAL EXAM: Sepsis exam done at 23:20 VS: ?77/45, 88, 30, 90% on OxyMask on 15 L General:? Appears to be in significant distress using accessory muscles, tachypneic, somewhat alert Skin:? Multiple scars throughout the face, neck, upper and lower extremities.? Trans amputation of the toes bilaterally. ?Left heel necrotic ulcer, deep and unstageable without purulent material. Right foot shows large round dorsal and transmetatarsal area wounds also unstageable at this point; mariellaase see pictures for details. HEENT:? Head is normocephalic, atraumatic, right eye is grade out.? Left pupil is pinpoint 2 mm without reactivity to light.? Buccal mucosa dry. Cardiac:? Clear S1-S2, no murmurs rubs or gallops. Pulmonary:? Diminished lung sounds bilaterally with coarseness at the bases left more than right. Abdomen:? Protuberant, positive bowel sounds in all 4 quadrants.? Soft, nontender, no rebound or guarding.? Musculoskeletal:? Moving all 4 extremities upon request a major joints, there is no crepitus or tenderness.? The strength is 5/5 bilaterally and throughout all 4 extremities.? There is no leg amadou, bilat trans metatarsal amputation and wounds as described above Neurologic:? As above, cranial nerves 2-12 are grossly intact.? No focal deficits noted. Vascular:? 2+ pulses upper and lower extremities distally. SIGNIFICANT LABORATORY DATA:? As above ABG pH 7.3, pCO2 24, PO2 47, bicarb 14. REVIEW OF IMAGES: CHEST X-RAY IMPRESSION: Right mid and lower lung bronchial wall thickening and hazy opacities could reflect infectious or inflammatory process. No dense consolidation is evident in the retrocardiac region on the frontal radiograph. R FOOT MRI 10/26/2023 Transmetatarsal amputation. There is mild soft tissue edema/trace fluid plantar to the base of the 1st metatarsal. Subtle irregularity along the osteotomy is present on the recent radiograph. However, there is no associated marrow edema or loss of T1 fatty marrow signal to indicate osteomyelitis. ASSESSMENT : 1.Acute sepsis with shock likely #2 r/o UTI vs foot ulcers infections (osteo) 2.COVID-19 infection likely the cause of the above, rule out UTI 3. Acute Hypoxic respiratory failure due to 2. 4. Reactive versus infectious leukocytosis 5. Anemia of chronic disease stable 6. End-stage renal disease on hemodialysis last session yesterday 7. Chronic pain syndrome 8. Chronic drug-seeking behavior 9. Medical noncompliance 10. Chronic Bilateral foot ulcers present on admission due to peripheral arterial disease. 11. Metabolic and Lactic acidosis due to the above PLAN OF CARE: Transfer patient to ICU, monitor vital signs, I and O's, will place her high- flow O2, will discuss the possibility of starting her on remdesivir in the morning, in the meantime will give her more albumin and start her on Levophed. She will covered for possible bacterial agents with cefepime, she has also received a dose of daptomycin; with may to be given after dialysis. Patient has a significant opioid abuse history and tolerance, I will not give her anymore narcotics for I am concerned that the 2 mg of Dilaudid she got into the emergency room is what caused her to be ongoing low hypotensive and minimally responsive. Tylenol and Zofran p.r.n. patient still produces urine, Carrero catheter will be placed and urine will be sent for culture and Gram stain. ?Wound care for her bilateral feet ulcers; will discuss the case with Dr. Briggs for the possibility of repeating images of her bilateral heels and to rule out osteomyelitis. Her ongoing low BP may also be due to retention of IV and oral Opioids. GI PROPHYLAXIS: ?IV ppi DVT PROPHYLAXIS:? SubQ heparin Focus f/up Sepsis exam done at 0630 am on 11/11/2023 107//58; 84; 16;b 98% on HiFlow at 70% General:? Appearss improved, NAD Cardiac:? Clear S1-S2, no murmurs rubs or gallops. Pulmonary:? Diminished lung sounds bilaterally with coarseness at the bases left more than right. Abdomen:? Protuberant, positive bowel sounds in all 4 quadrants.? Soft, nontender, no rebound or guarding.? Neurologic:? As above, No focal deficits noted. Vascular:? 2+ pulses upper and lower extremities distally. Continue with current management. Critical care time used for critical evaluation of this patient, diagnosis, treatment and coordination of care, review her records and documentation TOTAL CRITICAL CARE TIME 90 MIN . discussion and coordination with consultants, completely separate from any procedures performed. Patient's care was discussed in detail with Dr. Briggs who is aware of all the above as well as the plan of care for this patient.
[2023-11-11] MEDS: diphenhydrAMINE HCL 50 MG/ML VIAL 12.5 MG IVPUSH ×3 (04:44→20:10)
[2023-11-11 04:59] LABS: Bacteria Urine None Seen (None Seen); Hyaline Casts Urine 0-2 /LPF (0-2); RBC Urine 0-2 /HPF (0-2); Squamous Epithelial Cell Urine 0-2 /HPF (0-2); WBC Urine 0-5 /HPF (0-5)
--- NOTE | 2023-11-11 05:09 | HO.SKINPHOTO ---
right top of foot right Trans metatarsal amputation site right outer foot left Trans metatarsal amputation site Left Heel Left bottom of foot
[2023-11-11 06:32] LABS: VBG Base Excess -11.1 mmol/L; VBG HCO3 13 mmol/L (22-26); VBG pCO2 24 mmHg; VBG pH 7.33 (7.32-7.43); VBG pO2 51 mmHg
[2023-11-11 06:54] LABS: Venous Blood Gas Refer to POC result
[2023-11-11 07:28] LABS: Hemoglobin 7.2 g/dl (12.0-16.0); Mean Corpuscular HGB Conc 32.7 g/dl (31.0-35.0); Mean Corpuscular Volume 91.7 fL (80.0-98.0); Mean Platelet Volume 12.9 fL (9.4-12.3); Red Cell Distribution Width 19.2 % (11.0-16.0)
[2023-11-11 07:30] LABS: Platelet Count 94 X10*3/uL (160-400); WBC ABN SCTR FOR CBC 1; White Blood Count 23.2 X10*3/uL (4.8-10.8)
[2023-11-11 07:33] LABS: Glucose, Whole Blood 74 mg/dL (60-115)
[2023-11-11 07:38] LABS: Alanine Aminotransferase 11 U/L (0-31); Albumin Level 3.7 g/dL (3.5-5.0); Alkaline Phosphatase 126 U/L (39-117); Anion Gap 24 (12-20); Aspartate Amino Transferase 27 U/L (5-31); Bilirubin Total 1.9 mg/dL (0.0-1.0); Blood Urea Nitrogen 53 mg/dL (9-16); Calcium 7.7 mg/dL (8.4-10.2); Carbon Dioxide 13 mmol/L (22-29); Chloride 98 mmol/L (96-108); Creatinine Clr Calc Pharmacy 12.6; Estimated Glomerular Filt Rate 7; Glucose Random 80 mg/dL (60-115); Phosphorus 5.6 mg/dL (2.7-4.5); Potassium 4.1 mmol/L (3.3-5.1); Sodium 131 mmol/L (135-145); Total Protein 7.3 g/dL (6.5-8.0)
[2023-11-11 07:39] LABS: Troponin-I High Sensitivity 157.9 ng/L (<3.5-17.0)
[2023-11-11] MEDS: Pantoprazole Sodium 40 MG/10 ML VIAL IVPUSH (07:50)
[2023-11-11] MEDS: Calcium Carbonate 750 MG TAB.CHEW 300 MG PO ×2 (07:50→11:16)
[2023-11-11] MEDS: 0.9 % Sodium Chloride Flush 3 ML SYRINGE IVFLUSH ×3 (07:51→21:47)
[2023-11-11 07:53] LABS: Band Neutrophils Percent 19 % (3-5); Lymphocytes Absolute Manual 0.5 X10*3/uL (1.2-4.9); Lymphocytes Percent Manual 2 % (20-40); Monocytes Absolute Manual 0.5 X10*3/uL (0.1-1.2); Monocytes Percent Manual 2 % (2-11); Neutrophils Absolute Manual 22.3 X10*3/uL (2.0-8.3); Neutrophils Percent Manual 77 % (45-73)
[2023-11-11 07:54] LABS: Macrocytosis 1+ (5-14) /OIF; RBC Morphology NOTED
[2023-11-11 07:55] LABS: Large Platelet PRESENT; Ovalocytes 1+ (5-14) /OIF; Platelet Estimate DECREASED (NORMAL); Platelet Morphology Comment NOTED; Polychromasia 1+ (0-2) /OIF; Toxic Vacuolation PRESENT
--- NOTE | 2023-11-11 10:11 | PM.CCN ---
Critical Care Event Note Summary Date of Service: 11/11/23 Code activated: No Narrative: 3-year-old lady with underlying medical noncompliance, diabetes mellitus with ESRD and retinopathy. PVD, hypertension, diastolic dysfunction, chronic pain syndrome anorexic and behavior admitted on 11/10/2023 with generalized aches and electrolyte abnormalities after missing several sessions of dialysis. After dialysis on 11/10/2023 patient developed hypotension with poor response to initial IV fluid resuscitation requiring pressor support. Patient empirically covered with broad-spectrum antibiotics and transferred to intensive care unit. Overnight titrated off pressor support. Critical Care Time (minutes): 0
[2023-11-11 11:25] LABS: Glucose, Whole Blood 65 mg/dL (60-115)
[2023-11-11 11:43] LABS: Glucose, Whole Blood 59 mg/dL (60-115)
[2023-11-11 12:47] LABS: Glucose, Whole Blood 188 mg/dL (60-115)
--- NOTE | 2023-11-11 13:46 | MHC.CM.PN ---
IMM 11/11/23 Patient DX Fluid overload. She missed HD. Patient lives with her sister. 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 HD [facility]-Sat at [facility]. 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 Her sister will provide transportation home.
[2023-11-11 15:10] LABS: Appearance Urine Turbid; Color Urine Dark Yellow; Glucose Urine UA 250 mg/dL (Negative); Leukocyte Esterase Urine Small (1+) (Negative); Nitrite Urine Negative (Negative); PH 5.5 (5.0-9.0); Specific Gravity - Urine >= 1.030 (1.005-1.025); UMIC TRIGGER UACC YES; Urine Blood Large (3+) (Negative); Urine Ketones Trace mg/dL (Negative); Urine Protein >=1000 (4+) mg/dL (Neg-Trace)
--- NOTE | 2023-11-11 15:14 | PC.RT ---
Addendum entered by Shay Desai, RT 11/11/23 15:33: Dr. Cavazos came to the ICU to discuss pt with RT/RN. Agreed to hold on CT at this time and re evaluate pt trans to 4th floor. Original Note: MD request CT scan, RT concerned that pt has desaturations into low 80's at times on 100% fio2 and 55 lpm via HFNC. RT voiced concern and notified RT station installation supervisor and Nursing as well.
[2023-11-11 15:27] LABS: Bacteria Urine 2+ (None Seen); RBC Urine >20 /HPF (0-2); UACC Culture Trigger YES
[2023-11-11 16:51] LABS: Glucose, Whole Blood 55 mg/dL (60-115)
[2023-11-11 16:52] LABS: D Dimer High Sensitivity 6020 NG/ML
[2023-11-11 17:01] LABS: Glucose, Whole Blood 144 mg/dL (60-115)
[2023-11-11 20:15] LABS: Glucose, Whole Blood 55 mg/dL (60-115)
[2023-11-11 21:13] LABS: Glucose, Whole Blood 88 mg/dL (60-115)
[2023-11-11] MEDS: Dextrose 5 % 1,000 ML 50 ML IVCONT (21:34)
[2023-11-11] MEDS: cefEPime HCl 1 GM in 0.9 % Sodium Chloride 50 ML IV (21:40)
[2023-11-11 22:44] LABS: Glucose, Whole Blood 68 mg/dL (60-115)
[2023-11-11 23:24] LABS: Glucose, Whole Blood 68 mg/dL (60-115)
[2023-11-12] VITALS (48 sets, daily range): BP systolic 68–174; BP diastolic 34–95; PULSE 54–89; RESP 13–32; TEMP 33–37.3; O2SAT 70–100; BMI 32.4
[2023-11-12] MEDS: Dextrose 10 % 250 ML 750 ML IV ×2 (01:01→20:23)
[2023-11-12 01:27] LABS: Glucose, Whole Blood 59 mg/dL (60-115)
[2023-11-12 01:33] LABS: Glucose, Whole Blood 137 mg/dL (60-115)
[2023-11-12] MEDS: ondansetron HCL 4 MG/2 ML VIAL IVPUSH (02:11)
[2023-11-12] MEDS: diphenhydrAMINE HCL 50 MG/ML VIAL 12.5 MG IVPUSH ×2 (03:03→12:03)
[2023-11-12 03:17] LABS: Glucose, Whole Blood 98 mg/dL (60-115)
--- NOTE | 2023-11-12 03:35 | PC.NURSE ---
CARE ASSUMED 7PM..REMAINS AWAKE..CONVERSANT....VOGT...VAGUE RESPONSES TO MANY QUESTIONS...FREQUENTLY RESTLESS/AGITATED/YELLING AND CALLING OUT PER SHIFT REPORT..RESISTANT TO CARE....O2 100% VIA HI-KIMBERLY CANNULA AND 50 L/M FLOW RATE...RR 20-26...SAO2 89-93%...LUNGS COARSE CLEAR...REMAINS WITH RECURRANT HYPOGLYCEMIA (SEE COMPUTER) ...D10% PER APR..STARTED D5W 50 CC/HR PER PROVIDER..REPEAT D10% PER APR...MINIMAL OUTPUT VIA TEMP SENSING ATWOOD..TEMP 96.4 VIA ATWOOD..GRADUAL DECREASE TEMP TO 95.1 VIA ATWOOD AND 96.2 TEMPORAL..REFUSED RESUMPTION OF WARMING BLANKET..PATIENT DEMANDED REMOVAL OF ATWOOD 01:30..ATWOOD REMOVED INTACT....REMAINED RESTLESS WITH FREQUENT POSITIONING SELF IN BED...02:30-03:00 PATIENT PULLED OUT IV ACCESS..AGITATED...#22 ANGIO RESTARTED TO RIGHT ARM..REFUSED 2ND IV INSERTION...DECREASED SAO2 WITH AGITATION...REPEAT BENADRYL 12.5MG IV GIVEN PER APR..MORE RESTFUL...SAO2 90-915 AT REST ON 100% O2/50 L/M HI-KIMBERLY CANNULA..NSR HR 70'S..NO ECTOPY
[2023-11-12 04:48] LABS: Glucose, Whole Blood 90 mg/dL (60-115)
[2023-11-12 05:35] LABS: VBG Base Excess -11.9 mmol/L; VBG HCO3 11 mmol/L (22-26); VBG pCO2 21 mmHg; VBG pH 7.34 (7.32-7.43); VBG pO2 46 mmHg
[2023-11-12 05:43] LABS: Glucose, Whole Blood 90 mg/dL (60-115)
[2023-11-12 05:54] LABS: Hematocrit 22.4 % (37.0-47.0); Hemoglobin 7.3 g/dl (12.0-16.0); Mean Corpuscular HGB Conc 32.6 g/dl (31.0-35.0); Mean Corpuscular Hemoglobin 30.3 pg (27.0-33.0); Mean Corpuscular Volume 92.9 fL (80.0-98.0); Mean Platelet Volume 12.9 fL (9.4-12.3); Red Blood Count 2.41 X10*6/uL (4.20-5.50); Red Cell Distribution Width 19.1 % (11.0-16.0); WBC ABN SCTR FOR CBC 1
[2023-11-12 06:05] LABS: Alanine Aminotransferase 27 U/L (0-31); Albumin Level 3.5 g/dL (3.5-5.0); Alkaline Phosphatase 98 U/L (39-117); Anion Gap 25 (12-20); Aspartate Amino Transferase 60 U/L (5-31); Bilirubin Total 2.4 mg/dL (0.0-1.0); Blood Urea Nitrogen 56 mg/dL (9-16); Carbon Dioxide 12 mmol/L (22-29); Chloride 92 mmol/L (96-108); Estimated Glomerular Filt Rate 6; Glucose Random 89 mg/dL (60-115); Magnesium 2.1 mg/dL (1.6-2.6); Phosphorus 7.6 mg/dL (2.7-4.5); Potassium 5.2 mmol/L (3.3-5.1); Sodium 124 mmol/L (135-145); Total Protein 7.1 g/dL (6.5-8.0)
[2023-11-12 06:10] LABS: Platelet Count 75 X10*3/uL (160-400)
[2023-11-12 06:12] LABS: Band Neutrophils Percent 27 % (3-5); Lymphocytes Absolute Manual 0.3 X10*3/uL (1.2-4.9); Lymphocytes Percent Manual 1 % (20-40); Metamyelocytes Absolute 0.9 X10*3/uL; Metamyelocytes Percent 3 %; Monocytes Absolute Manual 0.9 X10*3/uL (0.1-1.2); Monocytes Percent Manual 3 % (2-11); Neutrophils Absolute Manual 27.9 X10*3/uL (2.0-8.3); Neutrophils Percent Manual 66 % (45-73)
[2023-11-12 06:14] LABS: Large Platelet PRESENT; Platelet Estimate DECREASED (NORMAL); Platelet Morphology Comment NOTED; RBC Morphology NOTED
[2023-11-12 06:15] LABS: Acanthocytes 1+ (0-2) /OIF; Schistocytes 1+ (0-2) /OIF; Spherocytes 1+ (0-2) /OIF; Tear Drop Cells 1+ (0-2) /OIF
[2023-11-12] MEDS: dexAMETHasone sod phosphate 4 MG/ML VIAL 6 MG IVPUSH (06:20)
[2023-11-12 06:37] LABS: Venous Blood Gas Refer to POC result
[2023-11-12 07:13] LABS: Glucose, Whole Blood 94 mg/dL (60-115)
[2023-11-12] MEDS: 0.9 % Sodium Chloride Flush 3 ML SYRINGE IVFLUSH ×3 (08:17→21:50)
[2023-11-12 10:21] LABS: Glucose, Whole Blood 83 mg/dL (60-115)
[2023-11-12] MEDS: Dextrose 5 % and 0.9 % NaCl 1,000 ML 50 ML IVCONT ×2 (10:30→23:31)
[2023-11-12 11:10] LABS: Glucose, Whole Blood 86 mg/dL (60-115)
--- NOTE | 2023-11-12 11:55 | PM.CCPN ---
Subjective Subjective Date of Service: 11/12/23 Critical Care Time (minutes): 40 Comment: Continues to be drowsy this morning On OptiFlow, 100% FiO2 60 liters/minute Hypothermic Physical Exam Vital Signs: Vital Signs: Last Vital Signs Temp 91.4 F L 11/12/23 11:00 Pulse 69 11/12/23 11:00 Resp 20 11/12/23 11:00 BP 138/79 11/12/23 11:00 Pulse Ox 94 11/12/23 11:00 O2 Del Method High Flow Nasal C annula 11/12/23 11:00 O2 Flow Rate 50 11/12/23 11:00 FiO2 100 11/12/23 11:00 BMI result Body Mass Index 32.4 General: Patient in acute distress tired appearing Nutritional Appearance: well nourished and overweight Eyes: appearance normal, both eyes and all related structures; Alignment and Position: alignment normal and position normal Neck: No lymphadenopathy, no thyromegaly Resp: bilateral air entry equal, occasional added sounds present Cardio: Regular rate, regular rhythm; Heart sounds: S1 normal heart sound present and S2 normal heart sound present GI: soft, nontender, no guarding, no hepatosplenomegaly : bladder normal to inspection, bladder normal to palpation, no renal angle tenderness Skin: no rashes or lesions noted and elasticity normal Neuro: Drowsy but follows some commands Objective Data Labs 11/12/23 05:29 11/12/23 05:29 Labs: Laboratory Results - last 24 hr 11/11/23 11/11/23 11/11/23 11:59 14:29 15:55 WBC RBC Hgb Hct MCV MCH MCHC RDW Plt Count MPV Immature Gran % (Auto) Neut % (Auto) Lymph % (Auto) [place] % (Auto) Eos % (Auto) Baso % (Auto) Lymph # (Auto) [place] # (Auto) Eos # (Auto) Baso # (Auto) Abs Immat Gran (auto) Absolute Neuts (auto) Absolute Nucleated RBC Nucleated RBC % (auto) Neutrophils % (Manual) Band Neutrophils % Lymphocytes % (Manual) Monocytes % (Manual) Metamyelocytes % Abs Neuts (Manual) Lymphocytes # (Manual) Monocytes # (Manual) Metamyelocytes # Platelet Estimate Large Platelets Plt Morphology Comment RBC Morphology Spherocytes Tear Drop Cells Acanthocytes (Spur) Schistocytes D-Dimer High Sensitivty 6020 VBG pH VBG pCO2 VBG pO2 VBG HCO3 VBG O2 Saturation VBG Base Excess Sodium Potassium Chloride Carbon Dioxide Anion Gap BUN Creatinine Estim Creat Clear Calc Estimated GFR POC Glucose 188 H Random Glucose Calcium Phosphorus Magnesium Total Bilirubin AST ALT Alkaline Phosphatase Total Protein Albumin Urine Color Dark Yellow Urine Appearance Turbid Urine pH 5.5 Ur Specific [place] >= 1.030 H Urine Protein >=1000 (4+) H Urine Glucose (UA) 250 H Urine Ketones Trace Urine Blood Large (3+) H Urine Nitrite Negative Ur Leukocyte Esterase Small (1+) H Urine RBC >20 H Urine WBC 11-20 Ur Squamous Epith Cells 3-5 Urine Bacteria 2+ Hyaline Casts 3-5 11/11/23 11/11/23 11/11/23 16:38 16:57 20:11 WBC RBC Hgb Hct MCV MCH MCHC RDW Plt Count MPV Immature Gran % (Auto) Neut % (Auto) Lymph % (Auto) [place] % (Auto) Eos % (Auto) Baso % (Auto) Lymph # (Auto) [place] # (Auto) Eos # (Auto) Baso # (Auto) Abs Immat Gran (auto) Absolute Neuts (auto) Absolute Nucleated RBC Nucleated RBC % (auto) Neutrophils % (Manual) Band Neutrophils % Lymphocytes % (Manual) Monocytes % (Manual) Metamyelocytes % Abs Neuts (Manual) Lymphocytes # (Manual) Monocytes # (Manual) Metamyelocytes # Platelet Estimate Large Platelets Plt Morphology Comment RBC Morphology Spherocytes Tear Drop Cells Acanthocytes (Spur) Schistocytes D-Dimer High Sensitivty VBG pH VBG pCO2 VBG pO2 VBG HCO3 VBG O2 Saturation VBG Base Excess Sodium Potassium Chloride Carbon Dioxide Anion Gap BUN Creatinine Estim Creat Clear Calc Estimated GFR POC Glucose 55 L* 144 H 55 L* Random Glucose Calcium Phosphorus Magnesium Total Bilirubin AST ALT Alkaline Phosphatase Total Protein Albumin Urine Color Urine Appearance Urine pH Ur Specific [place] Urine Protein Urine Glucose (UA) Urine Ketones Urine Blood Urine Nitrite Ur Leukocyte Esterase Urine RBC Urine WBC Ur Squamous Epith Cells Urine Bacteria Hyaline Casts 11/11/23 11/11/23 11/11/23 21:09 22:41 23:17 WBC RBC Hgb Hct MCV MCH MCHC RDW Plt Count MPV Immature Gran % (Auto) Neut % (Auto) Lymph % (Auto) [place] % (Auto) Eos % (Auto) Baso % (Auto) Lymph # (Auto) [place] # (Auto) Eos # (Auto) Baso # (Auto) Abs Immat Gran (auto) Absolute Neuts (auto) Absolute Nucleated RBC Nucleated RBC % (auto) Neutrophils % (Manual) Band Neutrophils % Lymphocytes % (Manual) Monocytes % (Manual) Metamyelocytes % Abs Neuts (Manual) Lymphocytes # (Manual) Monocytes # (Manual) Metamyelocytes # Platelet Estimate Large Platelets Plt Morphology Comment RBC Morphology Spherocytes Tear Drop Cells Acanthocytes (Spur) Schistocytes D-Dimer High Sensitivty VBG pH VBG pCO2 VBG pO2 VBG HCO3 VBG O2 Saturation VBG Base Excess Sodium Potassium Chloride Carbon Dioxide Anion Gap BUN Creatinine Estim Creat Clear Calc Estimated GFR POC Glucose 88 68 68 Random Glucose Calcium Phosphorus Magnesium Total Bilirubin AST ALT Alkaline Phosphatase Total Protein Albumin Urine Color Urine Appearance Urine pH Ur Specific [place] Urine Protein Urine Glucose (UA) Urine Ketones Urine Blood Urine Nitrite Ur Leukocyte Esterase Urine RBC Urine WBC Ur Squamous Epith Cells Urine Bacteria Hyaline Casts 11/12/23 11/12/23 11/12/23 00:55 01:27 03:04 WBC RBC Hgb Hct MCV MCH MCHC RDW Plt Count MPV Immature Gran % (Auto) Neut % (Auto) Lymph % (Auto) [place] % (Auto) Eos % (Auto) Baso % (Auto) Lymph # (Auto) [place] # (Auto) Eos # (Auto) Baso # (Auto) Abs Immat Gran (auto) Absolute Neuts (auto) Absolute Nucleated RBC Nucleated RBC % (auto) Neutrophils % (Manual) Band Neutrophils % Lymphocytes % (Manual) Monocytes % (Manual) Metamyelocytes % Abs Neuts (Manual) Lymphocytes # (Manual) Monocytes # (Manual) Metamyelocytes # Platelet Estimate Large Platelets Plt Morphology Comment RBC Morphology Spherocytes Tear Drop Cells Acanthocytes (Spur) Schistocytes D-Dimer High Sensitivty VBG pH VBG pCO2 VBG pO2 VBG HCO3 VBG O2 Saturation VBG Base Excess Sodium Potassium Chloride Carbon Dioxide Anion Gap BUN Creatinine Estim Creat Clear Calc Estimated GFR POC Glucose 59 L* 137 H 98 Random Glucose Calcium Phosphorus Magnesium Total Bilirubin AST ALT Alkaline Phosphatase Total Protein Albumin Urine Color Urine Appearance Urine pH Ur Specific [place] Urine Protein Urine Glucose (UA) Urine Ketones Urine Blood Urine Nitrite Ur Leukocyte Esterase Urine RBC Urine WBC Ur Squamous Epith Cells Urine Bacteria Hyaline Casts 11/12/23 11/12/23 11/12/23 04:21 05:25 05:29 WBC 30.0 H* RBC 2.41 L Hgb 7.3 L Hct 22.4 L MCV 92.9 MCH 30.3 MCHC 32.6 RDW 19.1 H Plt Count 75 L MPV 12.9 H Immature Gran % (Auto) Cancelled Neut % (Auto) Cancelled Lymph % (Auto) Cancelled [place] % (Auto) Cancelled Eos % (Auto) Cancelled Baso % (Auto) Cancelled Lymph # (Auto) Cancelled [place] # (Auto) Cancelled Eos # (Auto) Cancelled Baso # (Auto) Cancelled Abs Immat Gran (auto) Cancelled Absolute Neuts (auto) Cancelled Absolute Nucleated RBC 0.000 Nucleated RBC % (auto) 0.0 Neutrophils % (Manual) 66 Band Neutrophils % 27 H Lymphocytes % (Manual) 1 L Monocytes % (Manual) 3 Metamyelocytes % 3 Abs Neuts (Manual) 27.9 H Lymphocytes # (Manual) 0.3 L Monocytes # (Manual) 0.9 Metamyelocytes # 0.9 Platelet Estimate DECREASED Large Platelets PRESENT Plt Morphology Comment NOTED RBC Morphology NOTED Spherocytes 1+ (0-2) Tear Drop Cells 1+ (0-2) Acanthocytes (Spur) 1+ (0-2) Schistocytes 1+ (0-2) D-Dimer High Sensitivty VBG pH 7.34 VBG pCO2 21 VBG pO2 46 VBG HCO3 11 L VBG O2 Saturation 72.0 VBG Base Excess -11.9 Sodium 124 L Potassium 5.2 H D Chloride 92 L Carbon Dioxide 12 L Anion Gap 25 H BUN 56 H Creatinine 7.41 H* Estim Creat Clear Calc 12.0 Estimated GFR 6 POC Glucose 90 Random Glucose 89 Calcium 8.0 L Phosphorus 7.6 H Magnesium 2.1 Total Bilirubin 2.4 H AST 60 H ALT 27 Alkaline Phosphatase 98 Total Protein 7.1 Albumin 3.5 Urine Color Urine Appearance Urine pH Ur Specific [place] Urine Protein Urine Glucose (UA) Urine Ketones Urine Blood Urine Nitrite Ur Leukocyte Esterase Urine RBC Urine WBC Ur Squamous Epith Cells Urine Bacteria Hyaline Casts 11/12/23 11/12/23 11/12/23 05:31 07:08 10:13 WBC RBC Hgb Hct MCV MCH MCHC RDW Plt Count MPV Immature Gran % (Auto) Neut % (Auto) Lymph % (Auto) [place] % (Auto) Eos % (Auto) Baso % (Auto) Lymph # (Auto) [place] # (Auto) Eos # (Auto) Baso # (Auto) Abs Immat Gran (auto) Absolute Neuts (auto) Absolute Nucleated RBC Nucleated RBC % (auto) Neutrophils % (Manual) Band Neutrophils % Lymphocytes % (Manual) Monocytes % (Manual) Metamyelocytes % Abs Neuts (Manual) Lymphocytes # (Manual) Monocytes # (Manual) Metamyelocytes # Platelet Estimate Large Platelets Plt Morphology Comment RBC Morphology Spherocytes Tear Drop Cells Acanthocytes (Spur) Schistocytes D-Dimer High Sensitivty VBG pH VBG pCO2 VBG pO2 VBG HCO3 VBG O2 Saturation VBG Base Excess Sodium Potassium Chloride Carbon Dioxide Anion Gap BUN Creatinine Estim Creat Clear Calc Estimated GFR POC Glucose 90 94 83 Random Glucose Calcium Phosphorus Magnesium Total Bilirubin AST ALT Alkaline Phosphatase Total Protein Albumin Urine Color Urine Appearance Urine pH Ur Specific [place] Urine Protein Urine Glucose (UA) Urine Ketones Urine Blood Urine Nitrite Ur Leukocyte Esterase Urine RBC Urine WBC Ur Squamous Epith Cells Urine Bacteria Hyaline Casts 11/12/23 11:05 WBC RBC Hgb Hct MCV MCH MCHC RDW Plt Count MPV Immature Gran % (Auto) Neut % (Auto) Lymph % (Auto) [place] % (Auto) Eos % (Auto) Baso % (Auto) Lymph # (Auto) [place] # (Auto) Eos # (Auto) Baso # (Auto) Abs Immat Gran (auto) Absolute Neuts (auto) Absolute Nucleated RBC Nucleated RBC % (auto) Neutrophils % (Manual) Band Neutrophils % Lymphocytes % (Manual) Monocytes % (Manual) Metamyelocytes % Abs Neuts (Manual) Lymphocytes # (Manual) Monocytes # (Manual) Metamyelocytes # Platelet Estimate Large Platelets Plt Morphology Comment RBC Morphology Spherocytes Tear Drop Cells Acanthocytes (Spur) Schistocytes D-Dimer High Sensitivty VBG pH VBG pCO2 VBG pO2 VBG HCO3 VBG O2 Saturation VBG Base Excess Sodium Potassium Chloride Carbon Dioxide Anion Gap BUN Creatinine Estim Creat Clear Calc Estimated GFR POC Glucose 86 Random Glucose Calcium Phosphorus Magnesium Total Bilirubin AST ALT Alkaline Phosphatase Total Protein Albumin Urine Color Urine Appearance Urine pH Ur Specific [place] Urine Protein Urine Glucose (UA) Urine Ketones Urine Blood Urine Nitrite Ur Leukocyte Esterase Urine RBC Urine WBC Ur Squamous Epith Cells Urine Bacteria Hyaline Casts Microbiology Microbiology Results: Microbiology 11/11/23 14:29 Urine clean catch - Clean Catch Midstream Urine Culture - Preliminary No growth to date. 11/10/23 15:14 Blood - Venous Blood Culture - Preliminary Gram negative laurie 11/10/23 15:14 Blood - Venous Blood Culture - Preliminary Gram negative laurie Progress Note: A&P Assessment and plan (1) End stage chronic kidney disease: Status: Acute (2) Acute on chronic renal failure: Status: Acute (3) Chronic ulcer of right foot due to diabetes mellitus: Status: Acute (4) Chronic kidney disease: Status: Acute (5) Hypertension, uncontrolled: Status: Acute (6) Medical non-compliance: Status: Acute Plan Neuro: Acute encephalopathy possibly due to metabolic encephalopathy Close neurological status monitoring in the ICU every hour Cardiac: Blood pressure stable Respiratory: Acute hypoxemic respiratory failure due to COVID-19 pneumonia Currently she is on OptiFlow 100% FiO2 at 60 liters/minute Infectious Disease has been consulted, receiving dexamethasone 6 mg day Duo nebs as needed We will closely monitor her respiratory status has she has a high-risk for intubation GI: On oral diet as tolerated Renal: End-stage renal disease: On maintenance hemodialysis as per Nephrology We will closely monitor I's and O's Heme: Chronic anemia, closely monitor H&H, transfuse for hemoglobin less than 7 grams/deciliter Endocrine: Blood sugars under control Sliding scale insulin as needed Infectious disease: Blood cultures positive for Gram-negative rods, currently on cefepime We will repeat blood cultures tomorrow during dialysis If the cultures persistently remained positive we might need to consider catheter related infections Musculoskeletal: Decubitus ulcer prevention protocol Lines: Hemodialysis catheter Prophylaxis: Heparin, pantoprazole Quality Stroke Does the patient have a stroke diagnosis?: No VTE Prior VTE?: No VTE Risk Level:: Medical - moderate - high VTE Device Contraindication: Treatment Not Indicated VTE Drug Contraindication: N/A - Med Ordered
[2023-11-12] MEDS: Midazolam HCl/PF 2 MG/2 ML VIAL 4 MG IVPUSH (13:21)
[2023-11-12] MEDS: Etomidate 20 MG/10 ML VIAL IVPUSH (13:22)
[2023-11-12] MEDS: Rocuronium Bromide 50 MG/5 ML VIAL 100 MG IV (13:23)
[2023-11-12] MEDS: propofoL 1,000 MG/100 ML VIAL 16.42 MG IVCONT ×2 (13:27→18:30)
[2023-11-12] MEDS: fentaNYL citrate/NS 1,000 MCG/100 ML PLAST..BAG 5 MCG IVCONT ×2 (13:27→23:31)
[2023-11-12] MEDS: Norepinephrine Bitartrate/D5W 8 MG/250 ML PLAST..BAG 8.55 MG IVCONT (14:06)
[2023-11-12 14:08] LABS: ABG Base Excess -11.8 mmol/L; ABG HCO3 13 mmol/L (22-26); ABG pCO2 28 mmHg (32-45); ABG pH 7.27 (7.35-7.45); ABG pO2 44 mmHg (83-108)
[2023-11-12 14:08] LABS: Glucose, Whole Blood 91 mg/dL (60-115)
--- NOTE | 2023-11-12 14:20 | HO.WOUND ---
Wound Consult: Initial Attempted 33yr old female? [place] [facility] [place] See progress notes and H&P for detailed history.? This patient is known to this chief underwriter for frequent readmissions see chart for history, last seen end of September for same wounds. Wound consult placed for Bilateral lower foot wounds. Patient is currently ICU level of care arrival to unit, direct adult day care worker reported plan to intubate patient at this time. Will attempt consultation and assessment at future time and date when more appropriate. However chart review reveals photos, topical recommendations to be made from photos and will reassess after in person assessment. Left TMA site - Improving Dehiscence of surgical site - dry scab noted to wound bed recommend Betadine application and gauze wrap daily. Right Plantar Diabetic Wound and Right Lateral Diabetic Wound - dry scabbed wound bed - recommend paint with betadine and dry gauze wrap daily Right Dorsal Diabetic Wound - dry yellow slough - recommend wound gel to moisten and allow for autolytic debridement Left Heel - Diabetic Wound - dry yellow slough necrotic tissue - recommend wound gel to moisten and allow for autolytic debridement Left Plantar Diabetic Wound - dry scab wound bed - callused edges - Betadine application and gauze wrap daily. Recommendations: 1. Turn and Reposition every 2 hours and as needed for patient comfort.? Use pillows or wedges to support off loading positions. 2. Off Load all bony prominences with use of pillows and heel boots if needed.? Apply Preventative foams where needed. ? 3. Monitor for incontinence and moisture control, use barrier creams when needed for prevention and treatment. 4. Provide adequate and supplemental nutrition.? 5. Continue low air loss mattress. 6. When applicable maintain blood glucose levels per Providers order. 7. Bilateral plantar foot, Right lateral wound and Left TMA incision - Elevate heels off of bed surface with pillows. Cleanse with Betadine. Cover wound beds with ABD pad and gauze wrap. Change every other day. 8. Left Heel and Right Anterior foot site - Cleanse with NS moist gauze, pat dry. Apply wound gel to wound bed, fill space and cover with dry gauze, ABD pad nd wrap. Change every other day. Re-consult wound care Nurse for wound deterioration or wound changes.
--- NOTE | 2023-11-12 14:40 | P.PNNP_ITS ---
Subjective Subjective Date of Service: 11/12/23 Interval history: Seen and examined, events noted Possible intubation later today remains on covid iso Physical Exam 2 Vital Signs: Vital Signs: Last Vital Signs Temp 91.4 F L 11/12/23 11:00 Pulse 78 11/12/23 14:00 Resp 26 H 11/12/23 14:00 BP 169/84 H 11/12/23 14:00 Pulse Ox 95 11/12/23 14:00 O2 Del Method Mechanical Ventil ation 11/12/23 14:00 O2 Flow Rate 50 11/12/23 11:00 FiO2 100 11/12/23 14:00 BMI result Body Mass Index 32.4 Objective Data Labs 11/12/23 05:29 11/12/23 05:29 Labs: Laboratory Results - last 24 hr 11/11/23 11/11/23 11/11/23 14:29 15:55 16:38 WBC RBC Hgb Hct MCV MCH MCHC RDW Plt Count MPV Immature Gran % (Auto) Neut % (Auto) Lymph % (Auto) [place] % (Auto) Eos % (Auto) Baso % (Auto) Lymph # (Auto) [place] # (Auto) Eos # (Auto) Baso # (Auto) Abs Immat Gran (auto) Absolute Neuts (auto) Absolute Nucleated RBC Nucleated RBC % (auto) Neutrophils % (Manual) Band Neutrophils % Lymphocytes % (Manual) Monocytes % (Manual) Metamyelocytes % Abs Neuts (Manual) Lymphocytes # (Manual) Monocytes # (Manual) Metamyelocytes # Platelet Estimate Large Platelets Plt Morphology Comment RBC Morphology Spherocytes Tear Drop Cells Acanthocytes (Spur) Schistocytes D-Dimer High Sensitivty 6020 O2 Saturation ABG pH at Pt Temp ABG pCO2 at Pt Temp ABG pO2 at Pt Temp ABG HCO3 ABG Base Excess (Actual) VBG pH VBG pCO2 VBG pO2 VBG HCO3 VBG O2 Saturation VBG Base Excess Sodium Potassium Chloride Carbon Dioxide Anion Gap BUN Creatinine Estim Creat Clear Calc Estimated GFR POC Glucose 55 L* Random Glucose Calcium Phosphorus Magnesium Total Bilirubin AST ALT Alkaline Phosphatase Total Protein Albumin Urine Color Dark Yellow Urine Appearance Turbid Urine pH 5.5 Ur Specific [place] >= 1.030 H Urine Protein >=1000 (4+) H Urine Glucose (UA) 250 H Urine Ketones Trace Urine Blood Large (3+) H Urine Nitrite Negative Ur Leukocyte Esterase Small (1+) H Urine RBC >20 H Urine WBC 11-20 Ur Squamous Epith Cells 3-5 Urine Bacteria 2+ Hyaline Casts 3-5 11/11/23 11/11/23 11/11/23 16:57 20:11 21:09 WBC RBC Hgb Hct MCV MCH MCHC RDW Plt Count MPV Immature Gran % (Auto) Neut % (Auto) Lymph % (Auto) [place] % (Auto) Eos % (Auto) Baso % (Auto) Lymph # (Auto) [place] # (Auto) Eos # (Auto) Baso # (Auto) Abs Immat Gran (auto) Absolute Neuts (auto) Absolute Nucleated RBC Nucleated RBC % (auto) Neutrophils % (Manual) Band Neutrophils % Lymphocytes % (Manual) Monocytes % (Manual) Metamyelocytes % Abs Neuts (Manual) Lymphocytes # (Manual) Monocytes # (Manual) Metamyelocytes # Platelet Estimate Large Platelets Plt Morphology Comment RBC Morphology Spherocytes Tear Drop Cells Acanthocytes (Spur) Schistocytes D-Dimer High Sensitivty O2 Saturation ABG pH at Pt Temp ABG pCO2 at Pt Temp ABG pO2 at Pt Temp ABG HCO3 ABG Base Excess (Actual) VBG pH VBG pCO2 VBG pO2 VBG HCO3 VBG O2 Saturation VBG Base Excess Sodium Potassium Chloride Carbon Dioxide Anion Gap BUN Creatinine Estim Creat Clear Calc Estimated GFR POC Glucose 144 H 55 L* 88 Random Glucose Calcium Phosphorus Magnesium Total Bilirubin AST ALT Alkaline Phosphatase Total Protein Albumin Urine Color Urine Appearance Urine pH Ur Specific [place] Urine Protein Urine Glucose (UA) Urine Ketones Urine Blood Urine Nitrite Ur Leukocyte Esterase Urine RBC Urine WBC Ur Squamous Epith Cells Urine Bacteria Hyaline Casts 11/11/23 11/11/23 11/12/23 22:41 23:17 00:55 WBC RBC Hgb Hct MCV MCH MCHC RDW Plt Count MPV Immature Gran % (Auto) Neut % (Auto) Lymph % (Auto) [place] % (Auto) Eos % (Auto) Baso % (Auto) Lymph # (Auto) [place] # (Auto) Eos # (Auto) Baso # (Auto) Abs Immat Gran (auto) Absolute Neuts (auto) Absolute Nucleated RBC Nucleated RBC % (auto) Neutrophils % (Manual) Band Neutrophils % Lymphocytes % (Manual) Monocytes % (Manual) Metamyelocytes % Abs Neuts (Manual) Lymphocytes # (Manual) Monocytes # (Manual) Metamyelocytes # Platelet Estimate Large Platelets Plt Morphology Comment RBC Morphology Spherocytes Tear Drop Cells Acanthocytes (Spur) Schistocytes D-Dimer High Sensitivty O2 Saturation ABG pH at Pt Temp ABG pCO2 at Pt Temp ABG pO2 at Pt Temp ABG HCO3 ABG Base Excess (Actual) VBG pH VBG pCO2 VBG pO2 VBG HCO3 VBG O2 Saturation VBG Base Excess Sodium Potassium Chloride Carbon Dioxide Anion Gap BUN Creatinine Estim Creat Clear Calc Estimated GFR POC Glucose 68 68 59 L* Random Glucose Calcium Phosphorus Magnesium Total Bilirubin AST ALT Alkaline Phosphatase Total Protein Albumin Urine Color Urine Appearance Urine pH Ur Specific [place] Urine Protein Urine Glucose (UA) Urine Ketones Urine Blood Urine Nitrite Ur Leukocyte Esterase Urine RBC Urine WBC Ur Squamous Epith Cells Urine Bacteria Hyaline Casts 11/12/23 11/12/23 11/12/23 01:27 03:04 04:21 WBC RBC Hgb Hct MCV MCH MCHC RDW Plt Count MPV Immature Gran % (Auto) Neut % (Auto) Lymph % (Auto) [place] % (Auto) Eos % (Auto) Baso % (Auto) Lymph # (Auto) [place] # (Auto) Eos # (Auto) Baso # (Auto) Abs Immat Gran (auto) Absolute Neuts (auto) Absolute Nucleated RBC Nucleated RBC % (auto) Neutrophils % (Manual) Band Neutrophils % Lymphocytes % (Manual) Monocytes % (Manual) Metamyelocytes % Abs Neuts (Manual) Lymphocytes # (Manual) Monocytes # (Manual) Metamyelocytes # Platelet Estimate Large Platelets Plt Morphology Comment RBC Morphology Spherocytes Tear Drop Cells Acanthocytes (Spur) Schistocytes D-Dimer High Sensitivty O2 Saturation ABG pH at Pt Temp ABG pCO2 at Pt Temp ABG pO2 at Pt Temp ABG HCO3 ABG Base Excess (Actual) VBG pH VBG pCO2 VBG pO2 VBG HCO3 VBG O2 Saturation VBG Base Excess Sodium Potassium Chloride Carbon Dioxide Anion Gap BUN Creatinine Estim Creat Clear Calc Estimated GFR POC Glucose 137 H 98 90 Random Glucose Calcium Phosphorus Magnesium Total Bilirubin AST ALT Alkaline Phosphatase Total Protein Albumin Urine Color Urine Appearance Urine pH Ur Specific [place] Urine Protein Urine Glucose (UA) Urine Ketones Urine Blood Urine Nitrite Ur Leukocyte Esterase Urine RBC Urine WBC Ur Squamous Epith Cells Urine Bacteria Hyaline Casts 11/12/23 11/12/23 11/12/23 05:25 05:29 05:31 WBC 30.0 H* RBC 2.41 L Hgb 7.3 L Hct 22.4 L MCV 92.9 MCH 30.3 MCHC 32.6 RDW 19.1 H Plt Count 75 L MPV 12.9 H Immature Gran % (Auto) Cancelled Neut % (Auto) Cancelled Lymph % (Auto) Cancelled [place] % (Auto) Cancelled Eos % (Auto) Cancelled Baso % (Auto) Cancelled Lymph # (Auto) Cancelled [place] # (Auto) Cancelled Eos # (Auto) Cancelled Baso # (Auto) Cancelled Abs Immat Gran (auto) Cancelled Absolute Neuts (auto) Cancelled Absolute Nucleated RBC 0.000 Nucleated RBC % (auto) 0.0 Neutrophils % (Manual) 66 Band Neutrophils % 27 H Lymphocytes % (Manual) 1 L Monocytes % (Manual) 3 Metamyelocytes % 3 Abs Neuts (Manual) 27.9 H Lymphocytes # (Manual) 0.3 L Monocytes # (Manual) 0.9 Metamyelocytes # 0.9 Platelet Estimate DECREASED Large Platelets PRESENT Plt Morphology Comment NOTED RBC Morphology NOTED Spherocytes 1+ (0-2) Tear Drop Cells 1+ (0-2) Acanthocytes (Spur) 1+ (0-2) Schistocytes 1+ (0-2) D-Dimer High Sensitivty O2 Saturation ABG pH at Pt Temp ABG pCO2 at Pt Temp ABG pO2 at Pt Temp ABG HCO3 ABG Base Excess (Actual) VBG pH 7.34 VBG pCO2 21 VBG pO2 46 VBG HCO3 11 L VBG O2 Saturation 72.0 VBG Base Excess -11.9 Sodium 124 L Potassium 5.2 H D Chloride 92 L Carbon Dioxide 12 L Anion Gap 25 H BUN 56 H Creatinine 7.41 H* Estim Creat Clear Calc 12.0 Estimated GFR 6 POC Glucose 90 Random Glucose 89 Calcium 8.0 L Phosphorus 7.6 H Magnesium 2.1 Total Bilirubin 2.4 H AST 60 H ALT 27 Alkaline Phosphatase 98 Total Protein 7.1 Albumin 3.5 Urine Color Urine Appearance Urine pH Ur Specific [place] Urine Protein Urine Glucose (UA) Urine Ketones Urine Blood Urine Nitrite Ur Leukocyte Esterase Urine RBC Urine WBC Ur Squamous Epith Cells Urine Bacteria Hyaline Casts 11/12/23 11/12/23 11/12/23 07:08 10:13 11:05 WBC RBC Hgb Hct MCV MCH MCHC RDW Plt Count MPV Immature Gran % (Auto) Neut % (Auto) Lymph % (Auto) [place] % (Auto) Eos % (Auto) Baso % (Auto) Lymph # (Auto) [place] # (Auto) Eos # (Auto) Baso # (Auto) Abs Immat Gran (auto) Absolute Neuts (auto) Absolute Nucleated RBC Nucleated RBC % (auto) Neutrophils % (Manual) Band Neutrophils % Lymphocytes % (Manual) Monocytes % (Manual) Metamyelocytes % Abs Neuts (Manual) Lymphocytes # (Manual) Monocytes # (Manual) Metamyelocytes # Platelet Estimate Large Platelets Plt Morphology Comment RBC Morphology Spherocytes Tear Drop Cells Acanthocytes (Spur) Schistocytes D-Dimer High Sensitivty O2 Saturation ABG pH at Pt Temp ABG pCO2 at Pt Temp ABG pO2 at Pt Temp ABG HCO3 ABG Base Excess (Actual) VBG pH VBG pCO2 VBG pO2 VBG HCO3 VBG O2 Saturation VBG Base Excess Sodium Potassium Chloride Carbon Dioxide Anion Gap BUN Creatinine Estim Creat Clear Calc Estimated GFR POC Glucose 94 83 86 Random Glucose Calcium Phosphorus Magnesium Total Bilirubin AST ALT Alkaline Phosphatase Total Protein Albumin Urine Color Urine Appearance Urine pH Ur Specific [place] Urine Protein Urine Glucose (UA) Urine Ketones Urine Blood Urine Nitrite Ur Leukocyte Esterase Urine RBC Urine WBC Ur Squamous Epith Cells Urine Bacteria Hyaline Casts 11/12/23 11/12/23 13:58 14:03 WBC RBC Hgb Hct MCV MCH MCHC RDW Plt Count MPV Immature Gran % (Auto) Neut % (Auto) Lymph % (Auto) [place] % (Auto) Eos % (Auto) Baso % (Auto) Lymph # (Auto) [place] # (Auto) Eos # (Auto) Baso # (Auto) Abs Immat Gran (auto) Absolute Neuts (auto) Absolute Nucleated RBC Nucleated RBC % (auto) Neutrophils % (Manual) Band Neutrophils % Lymphocytes % (Manual) Monocytes % (Manual) Metamyelocytes % Abs Neuts (Manual) Lymphocytes # (Manual) Monocytes # (Manual) Metamyelocytes # Platelet Estimate Large Platelets Plt Morphology Comment RBC Morphology Spherocytes Tear Drop Cells Acanthocytes (Spur) Schistocytes D-Dimer High Sensitivty O2 Saturation 62.0 ABG pH at Pt Temp 7.27 L ABG pCO2 at Pt Temp 28 L ABG pO2 at Pt Temp 44 L* ABG HCO3 13 L ABG Base Excess (Actual) -11.8 VBG pH VBG pCO2 VBG pO2 VBG HCO3 VBG O2 Saturation VBG Base Excess Sodium Potassium Chloride Carbon Dioxide Anion Gap BUN Creatinine Estim Creat Clear Calc Estimated GFR POC Glucose 91 Random Glucose Calcium Phosphorus Magnesium Total Bilirubin AST ALT Alkaline Phosphatase Total Protein Albumin Urine Color Urine Appearance Urine pH Ur Specific [place] Urine Protein Urine Glucose (UA) Urine Ketones Urine Blood Urine Nitrite Ur Leukocyte Esterase Urine RBC Urine WBC Ur Squamous Epith Cells Urine Bacteria Hyaline Casts Microbiology Microbiology Results: Microbiology 11/11/23 14:29 Urine clean catch - Clean Catch Midstream Urine Culture - Preliminary No growth to date. 11/10/23 15:14 Blood - Venous Blood Culture - Preliminary Gram negative laurie 11/10/23 15:14 Blood - Venous Blood Culture - Preliminary Gram negative laurie Procedures Date of Service Date of Service: 11/12/23 Assessment & Plan Assessment and plan (1) End stage chronic kidney disease: Status: Acute (2) Acute on chronic renal failure: Status: Acute (3) Chronic ulcer of right foot due to diabetes mellitus: Status: Acute (4) Chronic kidney disease: Status: Acute (5) Hypertension, uncontrolled: Status: Acute (6) Medical non-compliance: Status: Acute Plan 1. ESRD: TTS; last HD 11/09 next HD 11/12 h/o very poorly complaint 2. Hemoaccess: Pcath 3. Resp[ failure: ongoing ICU care with poss intubation later today 4. GNR bacteremia: may need Pcath remvoed if remains persistent bact 5. Nephrogenic anemia REC: cont HD TTS; meds as noted; repeat Bld cult if remains pos then will need Pcath removed; Abx as noted D/W ICU team in detail Time Spent With Patient Time: Total time managing care of this patient today ____ minutes. Progress Note: Quality Stroke Does the patient have a stroke diagnosis?: No
--- NOTE | 2023-11-12 15:49 | W.PM.IDCN ---
History of Present Illness Data of Consult Service Date: 11/12/23 Requesting physician: Marquis Briggs Primary Care Provider: Genevieve Casillas MD HPI Reason for consult: gram negative bacteremia,patient also has COVID She presents to ER on 11/08 after feeling ill and missing dialysis. She only dialyzes on Sunday and and misses Sunday. She has ESRD and noncompliance with dialysis. She has diabetic retinopathy and blindness. She also complains of back pain and has used narcotics. She was also in ER on 09/07,09/30,10/16,,10/28,10/31,11/01 and 11/05. She does have PCP, Dr Cool at [facility]. Her blood cultures show gram negative rods x 2 on 11/09. Urine cultures negative. SGOT is 60. COVID also positive and was negative on 10/24. She is now intubated due to respiratory distress and is in ICU. Review of Systems Review of Systems: Yes all other systems are reviewed and are negative PMFSH Past Medical History Medical History Chronic foot ulcer Plantar ulcer of left foot Major depressive disorder, single episode, severe ESRD (end stage renal disease) Non-compliance with renal dialysis Hypertensive urgency MDD (major depressive disorder), recurrent episode MDD (major depressive disorder) Renal failure Foot ulcer CKD (chronic kidney disease) Hypertension Diabetic foot Hyperkalemia Vomiting Renal failure Hypertension Migraine Chronic pain ESRD on dialysis Non-compliance with renal dialysis Hypertension End-stage renal disease (ESRD) Gastroparesis Diabetic foot ulcer associated with type 2 diabetes mellitus Hypertensive emergency Diabetes ESRD needing dialysis Cardiomyopathy HFrEF (heart failure with reduced ejection fraction) Metabolic acidosis delivery delivered Anemia in chronic kidney disease (CKD) Anemia CKD (chronic kidney disease) Headache, migraine Abnormal finding on echocardiogram Elevated troponin Chest pain Acute worsening of stage 3 chronic kidney disease Generalized edema Sepsis Cellulitis Pleural effusion CHF (congestive heart failure) (~06/07/22) Tachycardia Atypical chest pain Bone infection PAD (peripheral artery disease) Severe anemia Cellulitis and abscess of foot DM foot ulcer Osteomyelitis Asthma Depression with anxiety Diabetic retinopathy Type 2 diabetes mellitus with hyperglycemia, with long-term current use of insulin Blind right eye Diabetes Back pain Family History Family History Mother Coronary artery disease Myocardial infarction Stroke Diabetes mellitus Father Myocardial infarction Family history: reviewed and not pertinent Surgical History Surgical History Tubal ligation status Previous section Hx laparoscopic cholecystectomy Hx of surgical procedure (~09/11/23) 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 Social History Social History Household Members: Unknown / Unable to assess Household Members Other:: ssiter /[employer] Housing: Apartment Do you presently have visiting nurse or other home services: No Unable to assess alcohol history related to: Unknown Alcohol intake: never 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 Patient Tobacco Use Status: Never used Tobacco e-Cigarette/Vaping Use: Never Used Second Hand Smoke Exposure: No Advance Directives Date on File: 09/04/23 service: No Current occupational status: unemployed and disabled Gender identity: Female Meds Allergies Allergy/AdvReac Type Severity Reaction Status Date / Time morphine [MORPHINE] Allergy Intermediate Itching Verified 11/09/23 21:22 azithromycin [From Zithromax] Allergy Hives Verified 11/09/23 21:22 gabapentin Allergy Facial Verified 11/09/23 21:22 Swelling tramadol Allergy Facial Verified 11/09/23 21:22 Swelling vancomycin Allergy Anaphylaxis Verified 11/09/23 21:22 Active Medications: Current Medications Acetaminophen (Acetaminophen 325 Mg Tablet) 975 mg PO Q6H PRN PRN Reason: Pain, Mild (Pain Scale 1-3), fever or headache Calcium Carbonate (Calcium Carbonate 750 Mg Tab.Chew) 300 mg PO TIDWM [facility] Last Admin: 11/12/23 11:05 Dose: Not Given Dexamethasone Sodium Phosphate (Dexamethasone Sod Phosphate 4 Mg/Ml Vial) 6 mg IVPUSH DAILY [facility] Last Admin: 11/12/23 06:20 Dose: 6 mg Glucose (Glucose Gel 15 Gm Gel..Gram.) 15 gm PO Q15M PRN; Protocol PRN Reason: per Hypoglycemia Standing Ord. Heparin Sodium (Porcine) (Heparin Sodium,Porcine 5,000 Unit/Ml Vial) 5,000 unit SUBCUT Q8H [facility] Last Admin: 11/12/23 15:40 Dose: Not Given Dextrose (D10) 250 mls @ 750 mls/hr IV Q15M PRN; Protocol PRN Reason: per Hypoglycemia Standing Ord. Last Infusion: 11/11/23 12:02 Dose: Infused Dextrose (D10) 250 mls @ 750 mls/hr IV Q15M PRN PRN Reason: per Hypoglycemia Standing Ord. Last Infusion: 11/12/23 01:27 Dose: Infused Cefepime HCl 1 gm/ Sodium (Chloride) 50 mls @ 100 mls/hr IV Q24H [facility] Last Infusion: 11/11/23 22:18 Dose: Infused Dextrose/Sodium Chloride (D5ns) 1,000 mls @ 50 mls/hr IVCONT .Q20H [facility] Last Admin: 11/12/23 10:30 Dose: 50 mls/hr Norepinephrine Bitartrate (Levophed) 8 mg in 250 mls @ 0 mls/hr IVCONT .Q0M [facility]; Protocol Propofol (Diprivan) 1,000 mg in 100 mls @ 0 mls/hr IVCONT .Q0M [facility]; Protocol Fentanyl (Sublimaze/Ns) 1,000 mcg in 100 mls @ 0 mls/hr IVCONT .Q0M [facility]; Protocol Insulin Human Lispro (Insulin Lispro 100 Unit/Ml 3 Ml Vial) 0 unit SUBCUT QIDACHS [facility]; Protocol Last Admin: 11/12/23 11:21 Dose: Not Given Ondansetron HCl (Ondansetron Hcl 4 Mg/2 Ml Vial) 4 mg IVPUSH Q4H PRN PRN Reason: Nausea and Vomiting Last Admin: 11/12/23 02:11 Dose: 4 mg Sodium Chloride (0.9 % Sodium Chloride Flush 3 Ml Syringe) 3 ml IVFLUSH QSHIFT [facility] Last Admin: 11/12/23 08:17 Dose: 3 ml Home Medications ?Medication ?Instructions ?Recorded ?Confirmed ?Last Taken ?Type carvedilol 12.5 mg tablet 12.5 mg PO BID 06/05/23 11/10/23 10/17/23 History torsemide 20 mg tablet 40 mg PO BID 06/05/23 11/10/23 10/17/23 History calcium carbonate (Calcium Antacid) 1 tab PO TIDWM 08/28/23 11/10/23 10/17/23 History diphenhydramine HCl 12.5 mg/5 mL 25 mg PO BEDTIME 10/08/23 11/10/23 10/17/23 History oral elixir nifedipine 60 mg tablet,extended 60 mg PO DAILY 10/08/23 11/10/23 10/17/23 History release 24 hr Physical Exam Vital Signs: Vital Signs: Last Vital Signs Temp 94.4 F L 11/12/23 15:00 Pulse 66 11/12/23 15:00 Resp 22 H 11/12/23 15:00 BP 124/70 11/12/23 15:00 Pulse Ox 95 11/12/23 15:00 O2 Del Method Mechanical Ventil ation 11/12/23 15:00 O2 Flow Rate 50 11/12/23 11:00 FiO2 100 11/12/23 15:00 BMI result Body Mass Index 32.4 Const: General: cooperative HEENT: Head: Yes normal to inspection Face and sinus: Yes normal facial exam Mouth: Normal oral and palatal mucosa present Teeth and gingiva: dentition normal Eyes: General: appearance normal, both eyes and all related structures Pupils: Equal, round and reactive pupils present Resp: Other: on ventilator Cardio: Rate: regular rate Rhythm: regular rhythm GI: Palpation (GI): Soft to palpation and nontender : General: Yes no CVA tenderness Back/Spine/Pelvis: Back: no CVA tenderness Skin: General skin exam: no rashes or lesions noted Neuro: General: moves all extremities Cranial nerves: Yes Equal, round and reactive pupils present Extrem: General: Yes normal to inspection Psych: Appearance: grossly normal Results Labs 11/12/23 05:29 11/12/23 05:29 Labs: Short CBC 11/12/23 Range/Units 05:29 WBC 30.0 H* (4.8-10.8) X10*3/uL Hgb 7.3 L (12.0-16.0) g/dl Hct 22.4 L (37.0-47.0) % Plt Count 75 L (160-400) X10*3/uL BMP 11/12/23 05:29 Sodium 124 L Potassium 5.2 H D Chloride 92 L Carbon Dioxide 12 L BUN 56 H Creatinine 7.41 H* Calcium 8.0 L Liver Function 11/12/23 Range/Units 05:29 Total Bilirubin 2.4 H (0.0-1.0) mg/dL AST 60 H (5-31) U/L ALT 27 (0-31) U/L Alkaline Phosphatase 98 (39-117) U/L Albumin 3.5 (3.5-5.0) g/dL Microbiology Microbiology Results: Microbiology 11/11/23 14:29 Urine clean catch - Clean Catch Midstream Urine Culture - Preliminary No growth to date. 11/10/23 15:14 Blood - Venous Blood Culture - Preliminary Gram negative laurie 11/10/23 15:14 Blood - Venous Blood Culture - Preliminary Gram negative laurie Assessment and Plan (1) Acute on chronic renal failure: Qualifiers: Acute renal failure type: unspecified Chronic kidney disease stage: on chronic dialysis Qualified Code(s): N17.9 - Acute kidney failure, unspecified; N18.6 - End stage renal disease; Z99.2 - Dependence on renal dialysis Status: Acute (2) Noncompliance: Status: Acute (3) End stage chronic kidney disease: Status: Acute (4) Back pain: Status: Acute Plan Continue Cefepime cover bacteremia. Await cultures.Urine culture neg so far. Steroids for COVID Dexamethasone 6 mg IV daily for COVID for 10 days or until not hypoxic. Would not give Remdesivir for COVID due to elevated LFTs or baricitinib due to current infection/bacteremia gram negative. Culture catheter see if source bacteremia. Recheck blood cultures. Also would consider CT abdomen and pelvis evaluate increased LFT,leukemoid reaction and bacteremia with negative urine culture.
[2023-11-12 16:04] LABS: Glucose, Whole Blood 107 mg/dL (60-115)
--- NOTE | 2023-11-12 16:28 | W.PM.CCHP ---
Procedures Date of Service Date of Service: 11/12/23 Intubation Consent for Procedure: Elective - informed consent obtained Time out performed: Yes Sedative: versed Mg given: 8 Paralytic: rocuronium Mg given: 100 Laryngoscope: fiber optic video scope ET tube size: 7.5 ET tube uncuffed: No Tube secured depth (cm): 23 Tube placement confirmation: visualized tube passing through cords Patient tolerated procedure: well Intubation complications: none
[2023-11-12 16:48] LABS: ABG Base Excess -9.4 mmol/L; ABG HCO3 14 mmol/L (22-26); ABG pCO2 27 mmHg (32-45); ABG pH 7.33 (7.35-7.45); ABG pO2 61 mmHg (83-108)
[2023-11-12 18:04] LABS: Glucose, Whole Blood 118 mg/dL (60-115)
--- NOTE | 2023-11-12 19:05 | PC.NURSE ---
Assumed care at 0700, patient A+O to person and place. patient on HFNC at 50L 100%- O2 SATs sustaining 86-92%. At approx 12:30 pt O2 SATs sustaining at 80-86%, rectal temp 91.4 refusing warming blanket, somnolent and SOB. MD and RT to bedside, decision by MD to intubate. Patient sedated by this RN per APR, intubated at 13:24 by MD GRANDE. ETT 7.5 21cm at the lip. CXR to confirm placement of ETT and OGT. ETT advanced per MD to 25 CM at lip, repeat CXR performed - see report. Patient O2 sats sustaining 50-70% on 100% FiO2 immediately post intubation. MD and RT and this RN still at bedside. ABG performed - see results. Levophed gtt started per APR due to MAP sustaining <65 - titrated per MD see APR. Patients sustained MAP>65 and O2>95% for multiple hours. at approx. 18:30 patients O2 SATs began to decrease. JOVON Massey aware. Current VS: HR-70.... BP-132/74... O2-77% on 100% FiO2... Temp 99.1 @ 19:20. Patient Repositioned and Oral care performed Q2. B/L soft wrist restraints in place per MD Order. Report given and awake overnight counselor RN assumed care at 1900.
[2023-11-12] MEDS: Bumetanide 1 MG/4 ML VIAL IVPUSH (19:43)
[2023-11-12] MEDS: Rocuronium Bromide 50 MG/5 ML VIAL 30 MG IVPUSH (19:45)
[2023-11-12 19:47] LABS: Mean Corpuscular Hemoglobin 30.4 pg (27.0-33.0); Red Cell Distribution Width 19.3 % (11.0-16.0)
[2023-11-12 19:48] LABS: Venous Blood Gas Refer to POC result
[2023-11-12 19:49] LABS: VBG Base Excess -10.2 mmol/L; VBG HCO3 16 mmol/L (22-26); VBG pCO2 37 mmHg; VBG pH 7.24 (7.32-7.43); VBG pO2 34 mmHg
[2023-11-12 19:49] LABS: Hematocrit 23.2 % (37.0-47.0); Hemoglobin 7.7 g/dl (12.0-16.0); Mean Corpuscular HGB Conc 33.2 g/dl (31.0-35.0); Mean Corpuscular Volume 91.7 fL (80.0-98.0); Mean Platelet Volume 12.9 fL (9.4-12.3); PLT CLUMP 1; Red Blood Count 2.53 X10*6/uL (4.20-5.50)
[2023-11-12 19:58] LABS: PLT ABN DIST 1
[2023-11-12] MEDS: Enoxaparin Sodium 100 MG/ML SYRINGE 90 MG SUBCUT (19:59)
[2023-11-12 20:00] LABS: White Blood Count 32.6 X10*3/uL (4.8-10.8)
[2023-11-12 20:01] LABS: Platelet Count 72 X10*3/uL (160-400)
[2023-11-12 20:07] LABS: Alanine Aminotransferase 58 U/L (0-31); Albumin Level 3.5 g/dL (3.5-5.0); Alkaline Phosphatase 88 U/L (39-117); Anion Gap 24 (12-20); Aspartate Amino Transferase 113 U/L (5-31); Bilirubin Total 3.1 mg/dL (0.0-1.0); Blood Urea Nitrogen 59 mg/dL (9-16); Calcium 7.7 mg/dL (8.4-10.2); Carbon Dioxide 16 mmol/L (22-29); Chloride 90 mmol/L (96-108); Creatinine Clr Calc Pharmacy 11.6; Estimated Glomerular Filt Rate 6; Glucose Random 125 mg/dL (60-115); Phosphorus 7.7 mg/dL (2.7-4.5); Potassium 6.6 mmol/L (3.3-5.1); Sodium 123 mmol/L (135-145); Total Protein 7.4 g/dL (6.5-8.0)
[2023-11-12] MEDS: Sodium Bicarbonate 8.4% 50 MEQ/50 ML SYRINGE 100 MEQ IVPUSH (20:12)
[2023-11-12 20:13] LABS: Glucose, Whole Blood 119 mg/dL (60-115)
[2023-11-12] MEDS: Insulin Regular, Human 100 UNIT/ML 10 ML VIAL 10 UNIT IVPUSH (20:18)
--- NOTE | 2023-11-12 20:34 | P.PNCC_ITS ---
Critical Care Event Note Summary Date of Service: 11/12/23 Code activated: No Narrative: This case had a high probability of a clinically significant, sudden, or life threatening deterioration of this patient's condition which required my full and direct attention, intervention and personal management. Critical Care Time (minutes): 75 Comment: 0730 pm Patient's nurse reported the patient was ongoingly hypoxic for the past several hours but now it is getting worse and into the low 80s, high 70s since the patient had been intubated this afternoon around 13:00. ?Current vent settings AC 22, 380, 10, 100%. Initial push of 50 mg of fentanyl was given to ensure the patient was well sedated, some diaphragmatic movement was noted, rocuronium given.? Patient continues to get hypoxic, peep increased to 12; patient was repositioned several times to the right, to the left and later on her back, O2 sats dropped as low as 50%. ?Stat laboratories were requested. ?Code cart at bedside, Nilo at bedside.? Blood glucose 125. Patient's suctioned and lavaged without much improvement, patient did not get dialysis, 1 mg of Bumex IV push given without improvement. ?During the pos sibility of a PE in the setting of COVID decision to give her Lovenox 1 milligram/kilogram was made. Venous blood gas reveals pH of 7.24, pCO2 37, PO2 34, bicarb 16.? Two amps of Bicarb were given. Chest x-ray was reviewed by me, the time of intubation, endotracheal tube was reported to be 25 at the lip, currently at 23 cm; it was advanced 2 cm. Repeat labs show white count of 32.6, hemoglobin 7.7, hematocrit 23.2.? Platelets 72.? Sodium 123, potassium 6.6, BUN 59, creatinine 7.7.? Phosphorus 7.7. ?Calcium 7.7, albumin 3.5. Corrected calculated calcium level 8.1. An amp of D50, 10 units of regular insulin IV and now albuterol 10 mg long as well as a DuoNeb were given. Will give 1g of Calcium Gluconate. At this time, I discussed the case with Dr. Moise for the patient did not have dialysis for a week prior to coming to the hospital and now she has not had dialysis for another 3-4 days.? I am concerned that some of the hypoxia may be related to fluid overload, superimposed by her COVID and a possible pulmonary embolism. 2100 After much work done on the patient, an hour and a half later her O2 sat now is 95%.? Other vital signs 138/75, heart rate 81, respirations 20. New vent settings AC 14; 350; 15; 100% satting 95% now will ask them to bring the Peep down to 12. Patient will have a 3 hour dialysis session today to help with her acidosis and hyperkalemia, she will have a formal treatment tomorrow. Significant improvement, noted.? However I am concerned that this patient would continue to have complications, it would be important to readdress code status and discuss her current clinical scenario in detail with the family members. I will discuss the case with Dr. Ramirez for her to possibly be started on heparin tomorrow morning, her platelets are low and even though Lovenox was used emergently, perhaps would not be the best medication to continue to treat a suspected pulmonary embolism. Thus far she is covered for next 12 to 24 hours. Critical care time used for critical evaluation of this patient, diagnosis, treatment and coordination of care, review her records and documentation TOTAL CRITICAL CARE TIME 75 ?MIN . discussion and coordination with consultants, completely separate from any procedures performed. Patient's care was discussed in detail with Dr. Casillas. He is aware of all the above as well as the plan of care for this patient. . ?
[2023-11-12 20:42] LABS: Band Neutrophils Percent 33 % (3-5); Lymphocytes Absolute Manual 0.3 X10*3/uL (1.2-4.9); Lymphocytes Percent Manual 1 % (20-40); Metamyelocytes Absolute 0.7 X10*3/uL; Metamyelocytes Percent 2 %; Monocytes Absolute Manual 0.7 X10*3/uL (0.1-1.2); Monocytes Percent Manual 2 % (2-11); Neutrophils Percent Manual 62 % (45-73)
[2023-11-12 20:45] LABS: RBC Morphology NOTED
[2023-11-12 20:47] LABS: Burr Cells 1+ (0-2) /OIF; Schistocytes 1+ (0-2) /OIF
[2023-11-12 20:48] LABS: Ovalocytes 1+ (5-14) /OIF; Polychromasia 1+ (0-2) /OIF
[2023-11-12 20:50] LABS: Platelet Estimate DECREASED (NORMAL); Platelet Morphology Comment NORMAL
[2023-11-12 21:26] LABS: ABG Refer to POC result
[2023-11-12] MEDS: cefEPime HCl 1 GM in 0.9 % Sodium Chloride 50 ML IV (21:49)
[2023-11-12] MEDS: Calcium Gluconate/NaCl,Iso-Osm 1 GM/50 ML PLAST..BAG IV (21:49)
[2023-11-12 22:15] LABS: Glucose, Whole Blood 101 mg/dL (60-115)
--- NOTE | 2023-11-12 22:34 | PC.NURSE ---
Addendum entered by Fer Butcher RN 11/13/23 02:59: POTASSIUM LEVEL WAS 6.6 NOT 6.5 Addendum entered by Fer Butcher RN 11/13/23 01:30: DIALYSIS COMPLETED..SLATE CUTTER REPORTED 3 KG FLUID REMOVED Original Note: CARE ASSUMED 7PM...INTUBATED...VCV VENT SUPPORT...AC 20/TV 380/FIO2 100%/PEEP 10...PROPOFOL 30 MCG/KG/MIN..FENTANYL 50 MCG/HR...LEVOPHED 0.02 MCG/KG/MIN..D5NS 50 CC/HR..BP STABLE...(+) COUGH/MINIMAL GAG...EXTREMETIES FLACCID...SAO2 88-87% DURING SHIFT REPORT AND TRENDING DOWNWARD...LAVAGED/SUCTIONED MINIMAL RICHARD-WHITE SECRETIONS...SAO2 TRENDING DOWNWARD RAPIDLY TO 70'S--60'S AND DOWN TO LOW OF 52%...RT AND ICU PA AT BEDSIDE..MULTIPLE POSITION CHANGES W/O EFFECT..STAT LABS DRAWN...PROPOFOL TO 40 MCG/KG/MIN PER PROVIDER AND RORCURONIUM 30MG IV X1...RT MADE MULTIPLE VENT CHANGES PER ICU PA..FINAL SETTINGS AC 14/TV 350/FIO2 100%/PEEP 15...#7.5 ETT ADVANCED FROM 23 TO 25CM PER PROVIDER...LABS REVIEWED BY PROVIDER..LOVENOX 90MG SC X1...K=6.5...NaHCO3 50MEQ X2 AMPS/D10% 250ml/INSULIN 10 UNITS IV/ALBUTEROL UPDRAFT BY RT/CALCIUM GLUCONATE 1 GRAM IV PER APR...PREVIOUSLY RECEIVED BUMEX 1 MG IV AND ATWOOD INSERTED PER PROVIDER WITH MINIMAL OUTPUT...NEPHROLOGY PAGED/CONSULTED BY PROVIDER...SLATE CUTTER ARRIVED AND HEMODIALYSIS INITIATED 21:30...SAO2 IMPROVED TO 97-98% PROR TO INITIATION OF DIALYSIS...PEEP WEANED TO 12CM PER PROVIDER BY RT...DIALYSIS CURRENTLY IN PROGRESS AND PLAN FOR REPEAT DIALYSIS IN AM PER SLATE CUTTER...BP STABLE..REMAINS NSR WITH CHRONIC BBB..NO ECTOPY..SAO2 CURRENTLY 100% WITH FIO2 100%/PEEP 12....
[2023-11-12] MEDS: propofoL 1,000 MG/100 ML VIAL 21.89 MG IVCONT (22:58)
[2023-11-12] MEDS: Albuterol Sulfate 2.5 MG, Albuterol/Iprat 2.5/0.5MG 3 ML 3 ML INHALE (23:29)
[2023-11-12] MEDS: Albuterol Sulfate 7.5 MG, Albuterol Sulfate (0.083%) 2.5 MG 10 MG INHALE (23:30)
[2023-11-13] VITALS (43 sets, daily range): BP systolic 99–182; BP diastolic 51–108; PULSE 80–108; RESP 14–30; TEMP 34.7–37.4; O2SAT 5–100; BMI 32.4
[2023-11-13 00:02] LABS: Glucose, Whole Blood 101 mg/dL (60-115)
[2023-11-13] MEDS: Albuterol/Iprat 2.5/0.5MG 3 ML AMPUL.NEB INHALE ×4 (00:16→19:51)
[2023-11-13] MEDS: hydrALAZINE HCl 20 MG/ML VIAL 10 MG IVPUSH (00:42)
[2023-11-13] MEDS: propofoL 1,000 MG/100 ML VIAL 27.36 MG IVCONT ×6 (02:27→23:16)
[2023-11-13 04:18] LABS: Glucose, Whole Blood 106 mg/dL (60-115)
[2023-11-13 05:13] LABS: VBG Base Excess 1.4 mmol/L; VBG HCO3 25 mmol/L (22-26); VBG pCO2 35 mmHg; VBG pH 7.45 (7.32-7.43); VBG pO2 68 mmHg
[2023-11-13 05:15] LABS: Venous Blood Gas Refer to POC result
[2023-11-13 05:22] LABS: Hemoglobin 7.5 g/dl (12.0-16.0); Mean Corpuscular HGB Conc 34.1 g/dl (31.0-35.0); Mean Corpuscular Hemoglobin 30.6 pg (27.0-33.0); Mean Corpuscular Volume 89.8 fL (80.0-98.0); PLT CLUMP 1; Red Blood Count 2.45 X10*6/uL (4.20-5.50); Red Cell Distribution Width 19.1 % (11.0-16.0)
[2023-11-13 05:29] LABS: White Blood Count 26.2 X10*3/uL (4.8-10.8)
[2023-11-13 05:36] LABS: INTERNATIONAL NORM RATIO 2.9 (0.9-1.1); Prothrombin Time 34.9 SEC (11.1-13.3)
[2023-11-13 05:38] LABS: Partial Thromboplastin Time 43.7 SEC (26.0-36.8)
[2023-11-13 05:42] LABS: Platelet Count 56 X10*3/uL (160-400)
[2023-11-13 05:44] LABS: Alanine Aminotransferase 70 U/L (0-31); Albumin Level 3.3 g/dL (3.5-5.0); Alkaline Phosphatase 96 U/L (39-117); Anion Gap 19 (12-20); Aspartate Amino Transferase 110 U/L (5-31); Band Neutrophils Percent 6 % (3-5); Bilirubin Total 2.7 mg/dL (0.0-1.0); Blood Urea Nitrogen 33 mg/dL (9-16); Calcium 7.9 mg/dL (8.4-10.2); Carbon Dioxide 24 mmol/L (22-29); Chloride 94 mmol/L (96-108); Creatinine Clr Calc Pharmacy 17.8; Estimated Glomerular Filt Rate 10; Glucose Random 119 mg/dL (60-115); Lymphocytes Absolute Manual 0.3 X10*3/uL (1.2-4.9); Lymphocytes Percent Manual 1 % (20-40); Metamyelocytes Absolute 0.3 X10*3/uL; Metamyelocytes Percent 1 %; Neutrophils Absolute Manual 25.7 X10*3/uL (2.0-8.3); Neutrophils Percent Manual 92 % (45-73); Phosphorus 5.8 mg/dL (2.7-4.5); Sodium 133 mmol/L (135-145)
[2023-11-13 05:47] LABS: Acanthocytes 1+ (0-2) /OIF; Large Platelet PRESENT; Ovalocytes 1+ (5-14) /OIF; Platelet Estimate DECREASED (NORMAL); Platelet Morphology Comment NOTED; RBC Morphology NOTED
[2023-11-13 05:48] LABS: Burr Cells 1+ (0-2) /OIF; Hypochromasia 1+ (5-14) /OIF; Polychromasia 1+ (0-2) /OIF; Schistocytes 1+ (0-2) /OIF; Target Cells 1+ (5-14) /OIF; Tear Drop Cells 1+ (0-2) /OIF; Toxic Vacuolation PRESENT
[2023-11-13 08:08] LABS: Glucose, Whole Blood 160 mg/dL (60-115)
--- NOTE | 2023-11-13 08:49 | P.PNCC_ITS ---
Subjective Subjective Date of Service: 11/13/23 Interval History: Continues to be critically ill on ventilator support needing significant oxygen requirement Undergoing hemodialysis session this morning On Levophed for vasopressor support On propofol for sedation, fentanyl for analgesia Critical Care Time (minutes): 45 Physical Exam 2 Vital Signs: Vital Signs: Last Vital Signs Temp 99.3 F 11/13/23 08:00 Pulse 87 11/13/23 08:00 Resp 22 H 11/13/23 08:00 BP 151/83 H 11/13/23 08:00 Pulse Ox 95 11/13/23 08:00 O2 Del Method Mechanical Ventil ation 11/13/23 08:00 O2 Flow Rate 50 11/12/23 11:00 FiO2 80 11/13/23 08:00 BMI result Body Mass Index 32.4 General: Patient is in acute distress, ill appearing and tired appearing Nutritional Appearance: well nourished and overweight Eyes: appearance normal, both eyes and all related structures; Alignment and Position: alignment normal and position normal Neck: No lymphadenopathy, no thyromegaly Resp: bilateral air entry equal, bilateral crackles heard Cardio: Regular rate, regular rhythm; Heart sounds: S1 normal heart sound present and S2 normal heart sound present GI: soft, nontender, no guarding, no hepatosplenomegaly : bladder normal to inspection, bladder normal to palpation, no renal angle tenderness Skin: no rashes or lesions noted and elasticity normal Neuro: Sedated, no focal deficits Objective Data Labs 11/13/23 04:54 11/13/23 04:54 Labs: Laboratory Results - last 24 hr 11/12/23 11/12/23 11/12/23 10:13 11:05 13:58 WBC RBC Hgb Hct MCV MCH MCHC RDW Plt Count MPV Immature Gran % (Auto) Neut % (Auto) Lymph % (Auto) [place] % (Auto) Eos % (Auto) Baso % (Auto) Lymph # (Auto) [place] # (Auto) Eos # (Auto) Baso # (Auto) Abs Immat Gran (auto) Absolute Neuts (auto) Absolute Nucleated RBC Nucleated RBC % (auto) Neutrophils % (Manual) Band Neutrophils % Lymphocytes % (Manual) Monocytes % (Manual) Metamyelocytes % Abs Neuts (Manual) Lymphocytes # (Manual) Monocytes # (Manual) Metamyelocytes # Toxic Vacuolation Platelet Estimate Large Platelets Plt Morphology Comment RBC Morphology Polychromasia Hypochromasia Target Cells Tear Drop Cells Ovalocytes Fareed Cells Acanthocytes (Spur) Schistocytes PT INR APTT O2 Saturation 62.0 ABG pH at Pt Temp 7.27 L ABG pCO2 at Pt Temp 28 L ABG pO2 at Pt Temp 44 L* ABG HCO3 13 L ABG Base Excess (Actual) -11.8 VBG pH VBG pCO2 VBG pO2 VBG HCO3 VBG O2 Saturation VBG Base Excess Sodium Potassium Chloride Carbon Dioxide Anion Gap BUN Creatinine Estim Creat Clear Calc Estimated GFR POC Glucose 83 86 Random Glucose Calcium Phosphorus Magnesium Total Bilirubin AST ALT Alkaline Phosphatase Total Protein Albumin 11/12/23 11/12/23 11/12/23 14:03 15:59 16:38 WBC RBC Hgb Hct MCV MCH MCHC RDW Plt Count MPV Immature Gran % (Auto) Neut % (Auto) Lymph % (Auto) [place] % (Auto) Eos % (Auto) Baso % (Auto) Lymph # (Auto) [place] # (Auto) Eos # (Auto) Baso # (Auto) Abs Immat Gran (auto) Absolute Neuts (auto) Absolute Nucleated RBC Nucleated RBC % (auto) Neutrophils % (Manual) Band Neutrophils % Lymphocytes % (Manual) Monocytes % (Manual) Metamyelocytes % Abs Neuts (Manual) Lymphocytes # (Manual) Monocytes # (Manual) Metamyelocytes # Toxic Vacuolation Platelet Estimate Large Platelets Plt Morphology Comment RBC Morphology Polychromasia Hypochromasia Target Cells Tear Drop Cells Ovalocytes Fareed Cells Acanthocytes (Spur) Schistocytes PT INR APTT O2 Saturation 86.0 ABG pH at Pt Temp 7.33 L ABG pCO2 at Pt Temp 27 L ABG pO2 at Pt Temp 61 L ABG HCO3 14 L ABG Base Excess (Actual) -9.4 VBG pH VBG pCO2 VBG pO2 VBG HCO3 VBG O2 Saturation VBG Base Excess Sodium Potassium Chloride Carbon Dioxide Anion Gap BUN Creatinine Estim Creat Clear Calc Estimated GFR POC Glucose 91 107 Random Glucose Calcium Phosphorus Magnesium Total Bilirubin AST ALT Alkaline Phosphatase Total Protein Albumin 11/12/23 11/12/23 11/12/23 18:00 19:39 19:46 WBC 32.6 H* RBC 2.53 L Hgb 7.7 L Hct 23.2 L MCV 91.7 MCH 30.4 MCHC 33.2 RDW 19.3 H Plt Count 72 L MPV 12.9 H Immature Gran % (Auto) Cancelled Neut % (Auto) Cancelled Lymph % (Auto) Cancelled [place] % (Auto) Cancelled Eos % (Auto) Cancelled Baso % (Auto) Cancelled Lymph # (Auto) Cancelled [place] # (Auto) Cancelled Eos # (Auto) Cancelled Baso # (Auto) Cancelled Abs Immat Gran (auto) Cancelled Absolute Neuts (auto) Cancelled Absolute Nucleated RBC 0.000 Nucleated RBC % (auto) 0.0 Neutrophils % (Manual) 62 Band Neutrophils % 33 H Lymphocytes % (Manual) 1 L Monocytes % (Manual) 2 Metamyelocytes % 2 Abs Neuts (Manual) 31.0 H Lymphocytes # (Manual) 0.3 L Monocytes # (Manual) 0.7 Metamyelocytes # 0.7 Toxic Vacuolation Platelet Estimate DECREASED Large Platelets Plt Morphology Comment NORMAL RBC Morphology NOTED Polychromasia 1+ (0-2) Hypochromasia Target Cells Tear Drop Cells Ovalocytes 1+ (5-14) [place] Cells 1+ (0-2) Acanthocytes (Spur) Schistocytes 1+ (0-2) PT INR APTT O2 Saturation ABG pH at Pt Temp ABG pCO2 at Pt Temp ABG pO2 at Pt Temp ABG HCO3 ABG Base Excess (Actual) VBG pH 7.24 L VBG pCO2 37 VBG pO2 34 VBG HCO3 16 L VBG O2 Saturation 43.0 VBG Base Excess -10.2 Sodium 123 L Potassium 6.6 H* D Chloride 90 L Carbon Dioxide 16 L Anion Gap 24 H BUN 59 H Creatinine 7.70 H* Estim Creat Clear Calc 11.6 Estimated GFR 6 POC Glucose 118 H Random Glucose 125 H Calcium 7.7 L Phosphorus 7.7 H Magnesium Total Bilirubin 3.1 H AST 113 H ALT 58 H Alkaline Phosphatase 88 Total Protein 7.4 Albumin 3.5 11/12/23 11/12/23 11/12/23 20:09 22:09 23:52 WBC RBC Hgb Hct MCV MCH MCHC RDW Plt Count MPV Immature Gran % (Auto) Neut % (Auto) Lymph % (Auto) [place] % (Auto) Eos % (Auto) Baso % (Auto) Lymph # (Auto) [place] # (Auto) Eos # (Auto) Baso # (Auto) Abs Immat Gran (auto) Absolute Neuts (auto) Absolute Nucleated RBC Nucleated RBC % (auto) Neutrophils % (Manual) Band Neutrophils % Lymphocytes % (Manual) Monocytes % (Manual) Metamyelocytes % Abs Neuts (Manual) Lymphocytes # (Manual) Monocytes # (Manual) Metamyelocytes # Toxic Vacuolation Platelet Estimate Large Platelets Plt Morphology Comment RBC Morphology Polychromasia Hypochromasia Target Cells Tear Drop Cells Ovalocytes Fareed Cells Acanthocytes (Spur) Schistocytes PT INR APTT O2 Saturation ABG pH at Pt Temp ABG pCO2 at Pt Temp ABG pO2 at Pt Temp ABG HCO3 ABG Base Excess (Actual) VBG pH VBG pCO2 VBG pO2 VBG HCO3 VBG O2 Saturation VBG Base Excess Sodium Potassium Chloride Carbon Dioxide Anion Gap BUN Creatinine Estim Creat Clear Calc Estimated GFR POC Glucose 119 H 101 101 Random Glucose Calcium Phosphorus Magnesium Total Bilirubin AST ALT Alkaline Phosphatase Total Protein Albumin 11/13/23 11/13/23 11/13/23 03:54 04:54 05:04 WBC 26.2 H RBC 2.45 L Hgb 7.5 L Hct 22.0 L MCV 89.8 MCH 30.6 MCHC 34.1 RDW 19.1 H Plt Count 56 L MPV Not Reportable Immature Gran % (Auto) Cancelled Neut % (Auto) Cancelled Lymph % (Auto) Cancelled [place] % (Auto) Cancelled Eos % (Auto) Cancelled Baso % (Auto) Cancelled Lymph # (Auto) Cancelled [place] # (Auto) Cancelled Eos # (Auto) Cancelled Baso # (Auto) Cancelled Abs Immat Gran (auto) Cancelled Absolute Neuts (auto) Cancelled Absolute Nucleated RBC 0.000 Nucleated RBC % (auto) 0.0 Neutrophils % (Manual) 92 H Band Neutrophils % 6 H Lymphocytes % (Manual) 1 L Monocytes % (Manual) Metamyelocytes % 1 Abs Neuts (Manual) 25.7 H Lymphocytes # (Manual) 0.3 L Monocytes # (Manual) Metamyelocytes # 0.3 Toxic Vacuolation PRESENT Platelet Estimate DECREASED Large Platelets PRESENT Plt Morphology Comment NOTED RBC Morphology NOTED Polychromasia 1+ (0-2) Hypochromasia 1+ (5-14) Target Cells 1+ (5-14) Tear Drop Cells 1+ (0-2) Ovalocytes 1+ (5-14) [place] Cells 1+ (0-2) Acanthocytes (Spur) 1+ (0-2) Schistocytes 1+ (0-2) PT 34.9 H D INR 2.9 H APTT 43.7 H O2 Saturation ABG pH at Pt Temp ABG pCO2 at Pt Temp ABG pO2 at Pt Temp ABG HCO3 ABG Base Excess (Actual) VBG pH 7.45 H VBG pCO2 35 VBG pO2 68 VBG HCO3 25 VBG O2 Saturation 93.0 VBG Base Excess 1.4 Sodium 133 L Potassium 4.0 D Chloride 94 L Carbon Dioxide 24 Anion Gap 19 BUN 33 H Creatinine 5.01 H* Estim Creat Clear Calc 17.8 Estimated GFR 10 POC Glucose 106 Random Glucose 119 H Calcium 7.9 L Phosphorus 5.8 H Magnesium 2.0 Total Bilirubin 2.7 H AST 110 H ALT 70 H Alkaline Phosphatase 96 Total Protein 7.0 Albumin 3.3 L 11/13/23 08:04 WBC RBC Hgb Hct MCV MCH MCHC RDW Plt Count MPV Immature Gran % (Auto) Neut % (Auto) Lymph % (Auto) [place] % (Auto) Eos % (Auto) Baso % (Auto) Lymph # (Auto) [place] # (Auto) Eos # (Auto) Baso # (Auto) Abs Immat Gran (auto) Absolute Neuts (auto) Absolute Nucleated RBC Nucleated RBC % (auto) Neutrophils % (Manual) Band Neutrophils % Lymphocytes % (Manual) Monocytes % (Manual) Metamyelocytes % Abs Neuts (Manual) Lymphocytes # (Manual) Monocytes # (Manual) Metamyelocytes # Toxic Vacuolation Platelet Estimate Large Platelets Plt Morphology Comment RBC Morphology Polychromasia Hypochromasia Target Cells Tear Drop Cells Ovalocytes [place] Cells Acanthocytes (Spur) Schistocytes PT INR APTT O2 Saturation ABG pH at Pt Temp ABG pCO2 at Pt Temp ABG pO2 at Pt Temp ABG HCO3 ABG Base Excess (Actual) VBG pH VBG pCO2 VBG pO2 VBG HCO3 VBG O2 Saturation VBG Base Excess Sodium Potassium Chloride Carbon Dioxide Anion Gap BUN Creatinine Estim Creat Clear Calc Estimated GFR POC Glucose 160 H Random Glucose Calcium Phosphorus Magnesium Total Bilirubin AST ALT Alkaline Phosphatase Total Protein Albumin Microbiology Microbiology Results: Microbiology 11/12/23 18:12 Leg - Right Gram Stain - Final 11/12/23 18:12 Leg - Right Routine Culture - Preliminary Culture in progress. 09/14/24 15:14 Blood - Venous Blood Culture - Final Pseudomonas aeruginosa 11/10/23 15:14 Blood - Venous Blood Culture - Final Pseudomonas aeruginosa 11/11/23 14:29 Urine clean catch - Clean Catch Midstream Urine Culture - Preliminary No growth to date. Progress Note: A&P Assessment and plan (1) Acute on chronic renal failure: Status: Acute (2) End stage chronic kidney disease: Status: Acute (3) Chronic ulcer of right foot due to diabetes mellitus: Status: Acute (4) Chronic ulcer of left foot due to diabetes mellitus: Status: Acute (5) Hypertension, uncontrolled: Status: Acute (6) Chronic kidney disease: Status: Acute Plan Neuro: Acute encephalopathy possibly due to metabolic encephalopathy Close neurological status monitoring in the ICU every hour On propofol for sedation, fentanyl for analgesia Cardiac: Cardiogenic shock: Secondary to positive pressure ventilation On Levophed for vasopressor support Respiratory: Acute hypoxemic respiratory failure due to COVID-19 pneumonia Intubated yesterday following which prolonged hypoxia Currently on ventilator support FiO2 80%, peep 10, tidal volume 380, rate 20 Significantly ill, prognosis is very guarded from respiratory point of view We will get a CTA of chest and also abdominal scans today Not a candidate for weaning from ventilator given very high vent settings On dexamethasone 6 mg daily for the management of COVID-19 pneumonia GI: We will start tube feeds Renal: End-stage renal disease: Received an emergent session of hemodialysis last evening for hyperkalemia Undergoing hemodialysis this morning as she is Sunday schedule On maintenance hemodialysis as per Nephrology We will closely monitor I's and O's Heme: Chronic anemia, closely monitor H&H, transfuse for hemoglobin less than 7 grams/deciliter Endocrine: Blood sugars under control Sliding scale insulin as needed Infectious disease: Blood cultures positive for Pseudomonas, cefepime changed to meropenem get a better sensitivities repeat blood cultures from the dialysis line this morning If the cultures persistently remained positive we might need to consider catheter related infections Musculoskeletal: Decubitus ulcer prevention protocol Lines: Hemodialysis catheter Prophylaxis: Heparin, pantoprazole Critical Care time spent is about 45 minutes on managing this critically ill patient with multiple organ failures, time is mostly spent on ventilator management, tingling ventilator settings, sedation management, vasopressor management, close hemodynamic monitoring, close respiratory status monitoring Quality Stroke Does the patient have a stroke diagnosis?: No VTE Prior VTE?: No VTE Risk Level:: Medical - moderate - high VTE Device Contraindication: Treatment Not Indicated VTE Drug Contraindication: N/A - Med Ordered
[2023-11-13 09:28] LABS: CRP High Sensitivity >20.0 mg/L
[2023-11-13] MEDS: propofoL 1,000 MG/100 ML VIAL 21.89 MG IVCONT (09:38)
[2023-11-13] MEDS: 0.9 % Sodium Chloride Flush 3 ML SYRINGE IVFLUSH ×2 (09:41→17:13)
[2023-11-13] MEDS: dexAMETHasone sod phosphate 4 MG/ML VIAL 6 MG IVPUSH (09:50)
--- NOTE | 2023-11-13 10:07 | MHC.CLN ---
PT REQUIRES TF FOR NUTRITION SUPPORT R/T PROLONGED NPO STATUS PT IS INTUBATED AND SEDATED PT TO START TF; RECOMMEND NEPRO AT MAX GOAL RATE 25ML/HR TO PROVIDE 1080KCALS (1658KCALS WITH SEDATION; 24KCALS/KG BASED ON CMW), 49G PROTEIN, 785ML FREE WATER FROM FORMULA HOLD FREE WATER AT THIS TIME MONITOR TOLERANCE AND LYTES SEE ALSO FULL CLINICAL NUTRITION ASSESSMENT
[2023-11-13 11:30] LABS: Glucose, Whole Blood 116 mg/dL (60-115)
[2023-11-13] MEDS: fentaNYL citrate/NS 1,000 MCG/100 ML PLAST..BAG 5 MCG IVCONT (12:54)
[2023-11-13 13:09] LABS: Glucose, Whole Blood 132 mg/dL (60-115)
--- NOTE | 2023-11-13 13:31 | MHC.CM.PN ---
Pt continues on ventilatory support: Pt from home w/outpt HD services: D/C plan to be revisisted once pt has been extubated and her functional abilities can be better assessed.
--- NOTE | 2023-11-13 13:35 | HO.WOUND ---
Wound Consult: Initial 33yr old female? admitted to [facility] on 11/10/23 - See progress notes and H&P for detailed history.? This patient is known to this appeals writer for frequent readmissions see chart for history. Wound consult placed for Bilateral lower foot wounds. Patient is admitted to ICU and remains intubated and critically ill. 10/18/23 Picture from previous admission Today 11/13/23 Left TMA site - Improving Dehiscence of surgical site - no active drainage noted - dry scabbed wound bed noted - Betadine to keep dry and stable and allow for antimicrobial properties. 11/13/23 Today Right Plantar Diabetic Wound - dry stable scabbed wound bed - painted with betadine 11/13/23 Today Right Lateral Diabetic Wound - Diabetic Wound - dry stable scabbed wound bed - painted with betadine 10/18/23 Photo from last admission 11/13/23 Today Right Dorsal Diabetic Wound - dry yellow scab - painted with Betadine - no drainage noted - no erythema noted - Betadine daily to aid in bio film reduction 10/18/23 Last Admission 11/13/23 - Todays assessment Left Heel - Diabetic Wound - dry yellow cruz wound bed - necrotic tissue noted - no odor no drainage noted - no fluctuance and no induraton noted - This wound was cultured / Swabbed. See chart for details of results: Gram Pos and Gram Neg organisms were identified. There are no s/s of this wound being actively infected - it is likely the wound culture was positive in terms of polymicrobial biofilm and no active infection. Biofilm can be treated in few ways, options appropriate to this patient is Dakin moist gauze application which would also allow for moist wound healing and autolytic debridement or Biofilm could also effectively be treated with Betadine for a period of time prior to it being harmful to the wound bed . 10/18/23 Previous admission 11/13/23 Todays assessment Left Plantar Diabetic Wound - dry dark scab bs eachar wound bed callused edges - Betadine daily to aid in bio film reduction Etiology: ??Diabetic Wounds with various measurements and in various stages of healing Drainage / Odor: no odor noted - no actue infection noted to any wound to the feet Goals of Treatment: ?Burns with Betadine Recommendations: 1. Turn and Reposition every 2 hours and as needed for patient comfort.? Use pillows or wedges to support off loading positions. 2. Off Load all bony prominences with use of pillows and heel boots if needed.? Apply Preventative foams where needed. ? 3. Monitor for incontinence and moisture control, use barrier creams when needed for prevention and treatment. 4. Provide adequate and supplemental nutrition.? 5. Order or Continue low air loss mattress. 6. When applicable maintain blood glucose levels per Providers order. 7. Bilateral Foot wounds - Elevate heels off of bed surface with heel protector boots. Cleanse with Betadine. Cover wound beds with dry ABD pad and gauze wrap. Change daily. Re-consult wound care Nurse for wound deterioration or wound changes.
--- NOTE | 2023-11-13 15:00 | CA_ITS ---
Transthoracic Echocardiogram Patient (Last, First, Middle): Shereen Taylor, Gender: Female Date of : 1990 Age: 33 Procedure Date: 11/13/2023 Procedure Type: Transthoracic Echocardiogram Location: ICU Height: 167.64 cm Weight: 90.72 kg BSA: 2.00 m2 Heart Rate: 84 bpm BP: 127 / 68 mmHg Camera Storage Clerk: CLEMENTINA Dash MD: Chapin Casillas MD Whizzer: Micky Cotton MD Symptoms: rule out endocarditis Study Quality: Fair ECG Rhythm: Sinus Conclusions: - 1. [id number] LV systolic dysfunction with moderate LVH with normal filling pattern 2. Moderately dilated right ventricle with moderately reduced RV systolic function 3. Biatrial enlargement, left greater than right 4. At least moderate tricuspid regurgitation 5. Normal measured RV systolic pressure with significantly elevated right atrial pressures 6. Small pericardial effusion Findings Left Ventricle Normal left ventricular cavity size. There is moderately increased left ventricular wall thickness. The left ventricular systolic function is mild to moderately decreased. The visually estimated ejection fraction is between 40-45%. Spectral Doppler is indicative of a normal filling pattern. Right Ventricle Moderately increased right ventricular cavity size. There is moderately decreased right ventricular systolic function. Atria The left atrium is moderately dilated. The right atrium is mildly dilated. Reflectile linear density noted in RA, suggestive of a catheter. Aortic Valve Normal aortic valve structure and function. There is no aortic valve stenosis. There is no aortic valve regurgitation. Mitral Valve There is mild anterior and posterior mitral leaflet thickening. There is mild mitral valve regurgitation. There is no mitral valve stenosis. Pulmonic Valve The pulmonic valve was not well visualized. Tricuspid Valve Likely normal tricuspid valve structure and function. There is moderate tricuspid valve regurgitation. Significantly elevated right atrial pressure. There is no evidence of pulmonary hypertension. Great Vessels All visible segments of the aorta are normal in size. The pulmonary artery was not well visualized. Venous The inferior vena cava is severely dilated and does not collapse with inspiration. patient and positive pressure mechanical ventilation Pericardium/Pleural There is a small circumferential pericardial effusion. Prior Study Comparison Changes noted compared to prior study dated: 01/24/2023. LV systolic function has marginally improved. Moderately reduced RV systolic function noted Measurements 2D Linear Measurements IVSd: 1.23 0.6-0.9/0.6-1.0 cm LVIDd: 4.84 3.9-5.3/4.2-5.9 cm LVIDd Index: 2.42 2.4-3.2/2.2-3.1 cm/m2 LVIDs: 3.59 2.0-3.6 cm LVPWd: 1.42 0.7-1.1 cm LA Diam: 4.20 2.7-3.8/3.0-4.0 cm LAIDs Index: 2.10 1.5-2.3 cm/m2 LV Mass: 319.08 67-162/88-224 g LV Mass Index: 159.54 43-95/49-115 g/m2 LVOT Diam: 2.10 3.0+(-)1.3 cm 2D Systolic Function EF 4C: 48.90 >55% EF 2C: 39.50 >55% EF BiP: 44.00 >55% Mitral Valve MV Pk E: 0.69 MV PK A: 0.54 MV Decel Time: 256.00 E/A: 1.30 E'Lateral: 7.18 E'Medial: 4.79 E/E' Med: 14.50 E/E' Lat: 9.70 PHT: 75.00 MVA PHT: 2.93 Decel [place]: 2.71 Aortic Valve AoV Pk Pietro: 1.18 AoV Mn Pietro: 0.88 AoV VTI: 0.21 AoV Pk Grad: 6.00 Aov Mn Grad: 4.00 ANDREA Cont.VTI: 2.36 LVOT LVOT Pk Pietro: 0.88 LVOT Mn Pietro: 0.62 LVOT VTI: 0.14 LVOT Pk Grad: 3.00 LVOT Mn Grad: 2.00 LVOT Diam: 2.10 LVOT Area: 3.46 Diastolic Function MV Pk E: 0.69 MV Pk A: 0.54 E/A: 1.30 E'Medial: 4.79 E/E' Med: 14.50 E' Laterial: 7.18 E/E' Lat: 9.70 Right Ventricle TAPSE (mm): 12.10 TVS' Pietro: 8.05 Tricuspid Valve TR Pk Pietro: 2.12 TR Pk Grad: 18.00 RA Press: 15.00 RVSP: 33.00 Great Vessels Aorta Sinus of Valsalva: 2.90 2.0-3.5 cm Ao Asc: 3.10 2.1-3.4 cm Pulmonary Valve PV Pk Pietro: 0.81 Peak PV Grad: 3.00 Updated in Other Vendor System with Status of Final Micky Cotton MD electronically signed on 11/14/2023 12:32:00 PM with status of Final
[2023-11-13 16:19] LABS: Glucose, Whole Blood 130 mg/dL (60-115)
[2023-11-13 16:41] LABS: Glucose, Whole Blood 130 mg/dL (60-115)
[2023-11-13 18:28] LABS: Glucose, Whole Blood 132 mg/dL (60-115)
[2023-11-13 20:02] LABS: INTERNATIONAL NORM RATIO 2.1 (0.9-1.1); Prothrombin Time 25.7 SEC (11.1-13.3)
[2023-11-13] MEDS: Heparin Sodium,Porcine 5,000 UNIT/ML VIAL 5000 UNIT SUBCUT (20:02)
[2023-11-13 20:45] LABS: Glucose, Whole Blood 134 mg/dL (60-115)
[2023-11-13 23:58] LABS: Glucose, Whole Blood 141 mg/dL (60-115)
[2023-11-14] VITALS (35 sets, daily range): BP systolic 140–179; BP diastolic 73–110; PULSE 81–95; RESP 20–25; TEMP 35–37.6; O2SAT 94–99; BMI 30.3
[2023-11-14] MEDS: Albuterol/Iprat 2.5/0.5MG 3 ML AMPUL.NEB INHALE ×5 (00:34→23:42)
[2023-11-14] MEDS: propofoL 1,000 MG/100 ML VIAL 27.36 MG IVCONT ×4 (01:46→12:33)
[2023-11-14 03:58] LABS: Glucose, Whole Blood 166 mg/dL (60-115)
[2023-11-14 05:45] LABS: VBG Base Excess 5.6 mmol/L; VBG HCO3 26 mmol/L (22-26); VBG pCO2 28 mmHg; VBG pH 7.58 (7.32-7.43); VBG pO2 86 mmHg
[2023-11-14 05:58] LABS: Venous Blood Gas Refer to POC result
[2023-11-14 05:58] LABS: Basophils Percent Auto 0.1 % (0-2); Hematocrit 22.2 % (37.0-47.0); Hemoglobin 7.6 g/dl (12.0-16.0); Imm Gran Pct Auto 0.6 % (0.0-0.4); Lymphocytes Absolute Auto 0.4 X10*3/uL (1.2-4.9); Lymphocytes Percent Auto 2.6 % (20-40); MANUAL DIFF FLAG SCAN; Mean Corpuscular HGB Conc 34.2 g/dl (31.0-35.0); Mean Corpuscular Hemoglobin 30.5 pg (27.0-33.0); Mean Corpuscular Volume 89.2 fL (80.0-98.0); Monocytes Absolute Auto 0.4 X10*3/uL (0.1-1.2); Monocytes Percent Auto 2.6 % (2-11); Neutrophils Percent Auto 94.1 % (45-73); PLT ABN DIST 1; Red Blood Count 2.49 X10*6/uL (4.20-5.50); Red Cell Distribution Width 19.3 % (11.0-16.0); SCAN SMEAR FLAG 1
[2023-11-14 06:00] LABS: White Blood Count 15.8 X10*3/uL (4.8-10.8)
[2023-11-14 06:09] LABS: Alanine Aminotransferase 59 U/L (0-31); Alkaline Phosphatase 80 U/L (39-117); Anion Gap 17 (12-20); Aspartate Amino Transferase 53 U/L (5-31); Bilirubin Total 2.2 mg/dL (0.0-1.0); Blood Urea Nitrogen 34 mg/dL (9-16); Carbon Dioxide 25 mmol/L (22-29); Chloride 98 mmol/L (96-108); Estimated Glomerular Filt Rate 13; Glucose Random 183 mg/dL (60-115); Magnesium 2.2 mg/dL (1.6-2.6); Phosphorus 4.6 mg/dL (2.7-4.5); Potassium 3.5 mmol/L (3.3-5.1); Sodium 136 mmol/L (135-145); Total Protein 6.8 g/dL (6.5-8.0)
[2023-11-14 06:11] LABS: Platelet Count 54 X10*3/uL (160-400); SLIDE REVIEW VERIFIED
[2023-11-14] MEDS: fentaNYL citrate/NS 1,000 MCG/100 ML PLAST..BAG 5 MCG IVCONT (07:23)
[2023-11-14] MEDS: 0.9 % Sodium Chloride Flush 3 ML SYRINGE IVFLUSH ×3 (07:23→15:14)
[2023-11-14] MEDS: Heparin Sodium,Porcine 5,000 UNIT/ML VIAL 5000 UNIT SUBCUT ×2 (07:24→20:41)
[2023-11-14] MEDS: dexAMETHasone sod phosphate 4 MG/ML VIAL 6 MG IVPUSH (07:24)
[2023-11-14 07:40] LABS: Glucose, Whole Blood 178 mg/dL (60-115)
--- NOTE | 2023-11-14 09:01 | P.PNCC_ITS ---
Subjective Subjective Date of Service: 11/14/23 Critical Care Time (minutes): 45 Comment: On ventilator support this morning Off vasopressor support Physical Exam 2 Vital Signs: Vital Signs: Last Vital Signs Temp 98.4 F 11/14/23 08:00 Pulse 84 11/14/23 08:00 Resp 21 H 11/14/23 08:00 BP 152/82 H 11/14/23 08:00 Pulse Ox 98 11/14/23 08:00 O2 Del Method Mechanical Ventil ation 11/14/23 08:00 O2 Flow Rate 25 11/14/23 08:00 FiO2 25 11/14/23 07:55 BMI result Body Mass Index 30.3 General: Patient is in acute distress, ill appearing and tired appearing Nutritional Appearance: well nourished and normal weight Eyes: appearance normal, both eyes and all related structures; Alignment and Position: alignment normal and position normal Neck: No lymphadenopathy, no thyromegaly Resp: bilateral air entry equal, occasional added sounds present in the lung bases Cardio: Regular rate, regular rhythm; Heart sounds: S1 normal heart sound present and S2 normal heart sound present GI: soft, nontender, no guarding, no hepatosplenomegaly : bladder normal to inspection, bladder normal to palpation, no renal angle tenderness Skin: no rashes or lesions noted and elasticity normal, skin infection noted in bilateral lower extremities Neuro: Sedated, no focal deficits Objective Data Labs 11/14/23 05:38 11/14/23 05:38 Labs: Laboratory Results - last 24 hr 11/10/23 11/10/23 11/13/23 16:42 20:38 11:26 WBC RBC Hgb Hct MCV MCH MCHC RDW Plt Count MPV Immature Gran % (Auto) Neut % (Auto) Lymph % (Auto) [place] % (Auto) Eos % (Auto) Baso % (Auto) Lymph # (Auto) [place] # (Auto) Eos # (Auto) Baso # (Auto) Abs Immat Gran (auto) Absolute Neuts (auto) Absolute Nucleated RBC Nucleated RBC % (auto) Smear Tech's Comments PT INR VBG pH VBG pCO2 VBG pO2 VBG HCO3 VBG O2 Saturation VBG Base Excess Sodium Potassium Chloride Carbon Dioxide Anion Gap BUN Creatinine Estim Creat Clear Calc Estimated GFR POC Glucose 116 H Random Glucose Calcium Phosphorus Magnesium Total Bilirubin AST ALT Alkaline Phosphatase C-React Prot High Sens >20.0 H Total Protein Albumin Stl C. cayetanensis PCR Cancelled Stool Rotavirus A PCR Cancelled Stl Adenov F 40/41 PCR Cancelled Stool Astrovirus (PCR) Cancelled Stool Campylobacter PCR Cancelled Stool Cryptosporidium PCR Cancelled Stl Sh Tox Pr E STEC PCR Cancelled Stool E coli O157 PCR Cancelled Stl Enterotoxigenic E PCR Cancelled Stool EPEC (PCR) Cancelled Stool EAEC (PCR) Cancelled Stl E. histolytica PCR Cancelled Stool Giardia Lamblia PCR Cancelled Stl P. shigelloides PCR Cancelled Stool Salmonella PCR Cancelled Stool Sapovirus (PCR) Cancelled Stl Shigella/EIEC PCR Cancelled St Y.enterocolitica PCR Cancelled Stool Vibrio (PCR) Cancelled Stl Vibrio cholerae PCR Cancelled Stl Norovirus GI/GII PCR Cancelled 11/13/23 11/13/23 11/13/23 13:05 15:06 16:37 WBC RBC Hgb Hct MCV MCH MCHC RDW Plt Count MPV Immature Gran % (Auto) Neut % (Auto) Lymph % (Auto) [place] % (Auto) Eos % (Auto) Baso % (Auto) Lymph # (Auto) [place] # (Auto) Eos # (Auto) Baso # (Auto) Abs Immat Gran (auto) Absolute Neuts (auto) Absolute Nucleated RBC Nucleated RBC % (auto) Smear Tech's Comments PT INR VBG pH VBG pCO2 VBG pO2 VBG HCO3 VBG O2 Saturation VBG Base Excess Sodium Potassium Chloride Carbon Dioxide Anion Gap BUN Creatinine Estim Creat Clear Calc Estimated GFR POC Glucose 132 H 130 H 130 H Random Glucose Calcium Phosphorus Magnesium Total Bilirubin AST ALT Alkaline Phosphatase C-React Prot High Sens Total Protein Albumin Stl C. cayetanensis PCR Stool Rotavirus A PCR Stl Adenov F 4041 PCR Stool Astrovirus (PCR) Stool Campylobacter PCR Stool Cryptosporidium PCR Stl Sh Tox Pr E STEC PCR Stool E coli O157 PCR Stl Enterotoxigenic E PCR Stool EPEC (PCR) Stool EAEC (PCR) Stl E. histolytica PCR Stool Giardia Lamblia PCR Stl P. shigelloides PCR Stool Salmonella PCR Stool Sapovirus (PCR) Stl Shigella/EIEC PCR St Y.enterocolitica PCR Stool Vibrio (PCR) Stl Vibrio cholerae PCR Stl Norovirus GI/GII PCR 11/13/23 11/13/23 11/13/23 18:23 19:32 20:41 WBC RBC Hgb Hct MCV MCH MCHC RDW Plt Count MPV Immature Gran % (Auto) Neut % (Auto) Lymph % (Auto) [place] % (Auto) Eos % (Auto) Baso % (Auto) Lymph # (Auto) [place] # (Auto) Eos # (Auto) Baso # (Auto) Abs Immat Gran (auto) Absolute Neuts (auto) Absolute Nucleated RBC Nucleated RBC % (auto) Smear Tech's Comments PT 25.7 H D INR 2.1 H VBG pH VBG pCO2 VBG pO2 VBG HCO3 VBG O2 Saturation VBG Base Excess Sodium Potassium Chloride Carbon Dioxide Anion Gap BUN Creatinine Estim Creat Clear Calc Estimated GFR POC Glucose 132 H 134 H Random Glucose Calcium Phosphorus Magnesium Total Bilirubin AST ALT Alkaline Phosphatase C-React Prot High Sens Total Protein Albumin Stl C. cayetanensis PCR Stool Rotavirus A PCR Stl Adenov F 40/41 PCR Stool Astrovirus (PCR) Stool Campylobacter PCR Stool Cryptosporidium PCR Stl Sh Tox Pr E STEC PCR Stool E coli O157 PCR Stl Enterotoxigenic E PCR Stool EPEC (PCR) Stool EAEC (PCR) Stl E. histolytica PCR Stool Giardia Lamblia PCR Stl P. shigelloides PCR Stool Salmonella PCR Stool Sapovirus (PCR) Stl Shigella/EIEC PCR St Y.enterocolitica PCR Stool Vibrio (PCR) Stl Vibrio cholerae PCR Stl Norovirus GI/GII PCR 11/13/23 11/14/23 11/14/23 23:51 03:52 05:35 WBC RBC Hgb Hct MCV MCH MCHC RDW Plt Count MPV Immature Gran % (Auto) Neut % (Auto) Lymph % (Auto) [place] % (Auto) Eos % (Auto) Baso % (Auto) Lymph # (Auto) [place] # (Auto) Eos # (Auto) Baso # (Auto) Abs Immat Gran (auto) Absolute Neuts (auto) Absolute Nucleated RBC Nucleated RBC % (auto) Smear Tech's Comments PT INR VBG pH 7.58 H VBG pCO2 28 VBG pO2 86 VBG HCO3 26 VBG O2 Saturation 98.0 VBG Base Excess 5.6 Sodium Potassium Chloride Carbon Dioxide Anion Gap BUN Creatinine Estim Creat Clear Calc Estimated GFR POC Glucose 141 H 166 H Random Glucose Calcium Phosphorus Magnesium Total Bilirubin AST ALT Alkaline Phosphatase C-React Prot High Sens Total Protein Albumin Stl C. cayetanensis PCR Stool Rotavirus A PCR Stl Adenov F PCR Stool Astrovirus (PCR) Stool Campylobacter PCR Stool Cryptosporidium PCR Stl Sh Tox Pr E STEC PCR Stool E coli O157 PCR Stl Enterotoxigenic E PCR Stool EPEC (PCR) Stool EAEC (PCR) Stl E. histolytica PCR Stool Giardia Lamblia PCR Stl P. shigelloides PCR Stool Salmonella PCR Stool Sapovirus (PCR) Stl Shigella/EIEC PCR St Y.enterocolitica PCR Stool Vibrio (PCR) Stl Vibrio cholerae PCR Stl Norovirus GI/GII PCR 11/14/23 11/14/23 05:38 07:34 WBC 15.8 H RBC 2.49 L Hgb 7.6 L Hct 22.2 L MCV 89.2 MCH 30.5 MCHC 34.2 RDW 19.3 H Plt Count 54 L MPV Not Reportable Immature Gran % (Auto) 0.6 H Neut % (Auto) 94.1 H Lymph % (Auto) 2.6 L [place] % (Auto) 2.6 Eos % (Auto) 0.0 Baso % (Auto) 0.1 Lymph # (Auto) 0.4 L [place] # (Auto) 0.4 Eos # (Auto) 0.0 Baso # (Auto) 0.0 Abs Immat Gran (auto) 0.10 H Absolute Neuts (auto) 15.0 H Absolute Nucleated RBC 0.000 Nucleated RBC % (auto) 0.0 Smear Tech's Comments VERIFIED PT INR VBG pH VBG pCO2 VBG pO2 VBG HCO3 VBG O2 Saturation VBG Base Excess Sodium 136 Potassium 3.5 Chloride 98 Carbon Dioxide 25 Anion Gap 17 BUN 34 H Creatinine 4.05 H* Estim Creat Clear Calc 22.0 Estimated GFR 13 POC Glucose 178 H Random Glucose 183 H Calcium 8.0 L Phosphorus 4.6 H Magnesium 2.2 Total Bilirubin 2.2 H AST 53 H ALT 59 H Alkaline Phosphatase 80 C-React Prot High Sens Total Protein 6.8 Albumin 3.0 L Stl C. cayetanensis PCR Stool Rotavirus A PCR Stl Adenov F PCR Stool Astrovirus (PCR) Stool Campylobacter PCR Stool Cryptosporidium PCR Stl Sh Tox Pr E STEC PCR Stool E coli O157 PCR Stl Enterotoxigenic E PCR Stool EPEC (PCR) Stool EAEC (PCR) Stl E. histolytica PCR Stool Giardia Lamblia PCR Stl P. shigelloides PCR Stool Salmonella PCR Stool Sapovirus (PCR) Stl Shigella/EIEC PCR St Y.enterocolitica PCR Stool Vibrio (PCR) Stl Vibrio cholerae PCR Stl Norovirus GI/GII PCR Microbiology Microbiology Results: Microbiology 11/13/23 08:32 Blood - Subclavian Blood Culture - Preliminary Prelim: GNR Gram Stain only 11/13/23 08:32 Blood - Subclavian Blood Culture - Preliminary Prelim: GNR Gram Stain only 11/11/23 14:29 Urine clean catch - Clean Catch Midstream Urine Culture - Final No growth. 11/12/23 18:12 Leg - Right Gram Stain - Final 11/12/23 18:12 Leg - Right Routine Culture - Preliminary Culture in progress. 11/10/23 15:14 Blood - Venous Blood Culture - Final Pseudomonas aeruginosa 11/10/23 15:14 Blood - Venous Blood Culture - Final Pseudomonas aeruginosa Progress Note: A&P Assessment and plan (1) Acute on chronic renal failure: Status: Acute (2) End stage chronic kidney disease: Status: Acute (3) Back pain: Status: Acute (4) Chronic foot ulcer: Status: Acute (5) Chronic ulcer of right foot due to diabetes mellitus: Status: Acute (6) Chronic ulcer of left foot due to diabetes mellitus: Status: Acute (7) Chronic kidney disease: Status: Acute Plan Neuro: Acute encephalopathy possibly due to metabolic encephalopathy Close neurological status monitoring in the ICU every hour On propofol for sedation, fentanyl for analgesia We will taper off the sedation to wean the patient from ventilator Cardiac: Cardiogenic shock: Secondary to positive pressure ventilation Off Levophed this morning Respiratory: Acute hypoxemic respiratory failure due to COVID-19 pneumonia Intubated yesterday following which prolonged hypoxia Ventilator setting significantly improved after 2 sessions of dialysis possibly suggesting volume overload FiO2 down to 50%, peep down to [address] the patient on pressor support to see if we can wean the patient off the ventilator. If the patient is weanable then we will dialyze before extubation On dexamethasone for management of COVID-19 pneumonia GI: tube feeds Renal: End-stage renal disease: Underwent hemodialysis yesterday, her schedule is TTS On maintenance hemodialysis as per Nephrology We will closely monitor I's and O's Heme: Chronic anemia, closely monitor H&H, transfuse for hemoglobin less than 7 grams/deciliter Endocrine: Blood sugars under control Sliding scale insulin as needed Infectious disease: Blood cultures remains positive for Pseudomonas, cefepime changed to meropenem get a better sensitivities repeat blood cultures from the dialysis line from yesterday remains positive for GNR As the cultures persistently remains positive consider catheter related infections, will do antibiotic lock with gentamycin. Musculoskeletal: Decubitus ulcer prevention protocol Lines: Hemodialysis catheter peripheral lines Prophylaxis: Heparin, pantoprazole Critical care time spent is about 40 minutes on ventilator management, sedation management, changing ventilator settings, weaning trials, close hemodynamic monitoring Quality Stroke Does the patient have a stroke diagnosis?: No VTE Prior VTE?: No VTE Risk Level:: Medical - moderate - high VTE Device Contraindication: Treatment Not Indicated VTE Drug Contraindication: N/A - Med Ordered
[2023-11-14] MEDS: Chlorhexidine Gluc Oral Rinse 15 ML MOUTHWASH BUCCAL ×3 (09:48→20:41)
[2023-11-14] MEDS: Insulin Lispro 100 UNIT/ML 3 ML VIAL SUBCUT ×4 (09:48→20:41)
--- NOTE | 2023-11-14 09:59 | MHC.CM.PN ---
Pt continues on ventilatory support in ICU: goals of care include sedation reduction to assess for extubation ability: CT with contrast and IV ATB. ? trialing a permacath ATB lock. Pt from home w/family and outpt HD on . Pt has a documented hx of non compliance and refusal of HD. CM to follow.
--- NOTE | 2023-11-14 10:23 | MHC.CLN ---
Addendum entered by Emy Moore, SONU 11/14/23 10:24: CORRECTION: 1802KCALS WITH SEDATION; 26KCALS/KG BASED ON CMW Original Note: F/U PT REQUIRES TF FOR NUTRITION SUPPORT R/T PROLONGED NPO STATUS PT REMAINS INTUBATED AND SEDATED PT RECEIVING NEPRO AT MAX GOAL RATE 25ML/HR PROVIDES 1080KCALS (1658KCALS WITH SEDATION; 24KCALS/KG BASED ON CMW), 49G PROTEIN, 785ML FREE WATER FROM FORMULA HOLD FREE WATER AT THIS TIME MONITOR TOLERANCE AND LYTES
[2023-11-14 12:07] LABS: Glucose, Whole Blood 204 mg/dL (60-115)
[2023-11-14] MEDS: iohexoL 350 MG/ML 100 ML INFUS..BTL 85 ML IV (14:16)
[2023-11-14 15:59] LABS: Glucose, Whole Blood 198 mg/dL (60-115)
--- NOTE | 2023-11-14 18:37 | HO.SKINPHOTO ---
Location: coccyx Category: PI Stage: stage II Length: 3 cm Width: 1cm surrounding skin non-blanchable pink discoloration
[2023-11-14] MEDS: hydrALAZINE HCl 20 MG/ML VIAL 10 MG IVPUSH (19:22)
[2023-11-14 19:58] LABS: Glucose, Whole Blood 186 mg/dL (60-115)
[2023-11-15] VITALS (46 sets, daily range): BP systolic 142–209; BP diastolic 58–135; PULSE 84–101; RESP 17–30; TEMP 34.6–38.2; O2SAT 93–98; BMI 31.0
[2023-11-15 00:01] LABS: Glucose, Whole Blood 148 mg/dL (60-115)
--- NOTE | 2023-11-15 00:23 | PM.PNNEP ---
Subjective Subjective Date of Service: 11/14/23 Interval history: Seen and examined, events noted Cont on vent Physical Exam Vital Signs: Vital Signs: Last Vital Signs Temp 99.5 F 11/14/23 23:00 Pulse 88 11/14/23 23:43 Resp 22 H 11/14/23 23:43 BP 155/75 H 11/14/23 23:00 Pulse Ox 96 11/15/23 00:00 O2 Del Method Mechanical Ventil ation 11/14/23 23:00 O2 Flow Rate 50 11/12/23 11:00 FiO2 25 11/15/23 00:00 BMI result Body Mass Index 30.3 Const: General: cooperative HEENT: Head: Yes normal to inspection Face and sinus: Yes normal facial exam Mouth: Normal oral and palatal mucosa present Teeth and gingiva: dentition normal Eyes: General: appearance normal, both eyes and all related structures Pupils: Equal, round and reactive pupils present Resp: Other: on ventilator Cardio: Rate: regular rate Rhythm: regular rhythm GI: Palpation (GI): Soft to palpation and nontender : General: Yes no CVA tenderness Back/Spine/Pelvis: Back: no CVA tenderness Skin: General skin exam: no rashes or lesions noted Neuro: General: moves all extremities Cranial nerves: Yes Equal, round and reactive pupils present Extrem: General: Yes normal to inspection Psych: Appearance: grossly normal Objective Data Labs 11/14/23 05:38 11/14/23 05:38 Labs: Laboratory Results - last 24 hr 11/14/23 11/14/23 11/14/23 03:52 05:35 05:38 WBC 15.8 H RBC 2.49 L Hgb 7.6 L Hct 22.2 L MCV 89.2 MCH 30.5 MCHC 34.2 RDW 19.3 H Plt Count 54 L MPV Not Reportable Immature Gran % (Auto) 0.6 H Neut % (Auto) 94.1 H Lymph % (Auto) 2.6 L [place] % (Auto) 2.6 Eos % (Auto) 0.0 Baso % (Auto) 0.1 Lymph # (Auto) 0.4 L [place] # (Auto) 0.4 Eos # (Auto) 0.0 Baso # (Auto) 0.0 Abs Immat Gran (auto) 0.10 H Absolute Neuts (auto) 15.0 H Absolute Nucleated RBC 0.000 Nucleated RBC % (auto) 0.0 Smear Tech's Comments VERIFIED VBG pH 7.58 H VBG pCO2 28 VBG pO2 86 VBG HCO3 26 VBG O2 Saturation 98.0 VBG Base Excess 5.6 Sodium 136 Potassium 3.5 Chloride 98 Carbon Dioxide 25 Anion Gap 17 BUN 34 H Creatinine 4.05 H* Estim Creat Clear Calc 22.0 Estimated GFR 13 POC Glucose 166 H Random Glucose 183 H Calcium 8.0 L Phosphorus 4.6 H Magnesium 2.2 Total Bilirubin 2.2 H AST 53 H ALT 59 H Alkaline Phosphatase 80 Total Protein 6.8 Albumin 3.0 L 11/14/23 11/14/23 11/14/23 07:34 12:02 15:48 WBC RBC Hgb Hct MCV MCH MCHC RDW Plt Count MPV Immature Gran % (Auto) Neut % (Auto) Lymph % (Auto) [place] % (Auto) Eos % (Auto) Baso % (Auto) Lymph # (Auto) [place] # (Auto) Eos # (Auto) Baso # (Auto) Abs Immat Gran (auto) Absolute Neuts (auto) Absolute Nucleated RBC Nucleated RBC % (auto) Smear Tech's Comments VBG pH VBG pCO2 VBG pO2 VBG HCO3 VBG O2 Saturation VBG Base Excess Sodium Potassium Chloride Carbon Dioxide Anion Gap BUN Creatinine Estim Creat Clear Calc Estimated GFR POC Glucose 178 H 204 H 198 H Random Glucose Calcium Phosphorus Magnesium Total Bilirubin AST ALT Alkaline Phosphatase Total Protein Albumin 11/14/23 11/14/23 19:54 23:55 WBC RBC Hgb Hct MCV MCH MCHC RDW Plt Count MPV Immature Gran % (Auto) Neut % (Auto) Lymph % (Auto) [place] % (Auto) Eos % (Auto) Baso % (Auto) Lymph # (Auto) [place] # (Auto) Eos # (Auto) Baso # (Auto) Abs Immat Gran (auto) Absolute Neuts (auto) Absolute Nucleated RBC Nucleated RBC % (auto) Smear Tech's Comments VBG pH VBG pCO2 VBG pO2 VBG HCO3 VBG O2 Saturation VBG Base Excess Sodium Potassium Chloride Carbon Dioxide Anion Gap BUN Creatinine Estim Creat Clear Calc Estimated GFR POC Glucose 186 H 148 H Random Glucose Calcium Phosphorus Magnesium Total Bilirubin AST ALT Alkaline Phosphatase Total Protein Albumin Microbiology Microbiology Results: Microbiology 11/13/23 08:32 Blood - Subclavian Blood Culture - Preliminary Prelim: GNR Gram Stain only 11/13/23 08:32 Blood - Subclavian Blood Culture - Preliminary Prelim: GNR Gram Stain only 11/12/23 18:12 Leg - Right Gram Stain - Final 11/12/23 18:12 Leg - Right Routine Culture - Preliminary Gram negative laurie 11/11/23 14:29 Urine clean catch - Clean Catch Midstream Urine Culture - Final No growth. 11/10/23 15:14 Blood - Venous Blood Culture - Final Pseudomonas aeruginosa 11/10/23 15:14 Blood - Venous Blood Culture - Final Pseudomonas aeruginosa Procedures Date of Service Date of Service: 11/15/23 Assessment & Plan Assessment and plan (1) End stage chronic kidney disease: Status: Acute (2) Acute on chronic renal failure: Status: Acute (3) Chronic ulcer of right foot due to diabetes mellitus: Status: Acute (4) Chronic kidney disease: Status: Acute (5) Hypertension, uncontrolled: Status: Acute (6) Medical non-compliance: Status: Acute Plan 1. ESRD: ormally TS schedule h/o very poorly complaint w HD treatments 2. Hemoaccess: Pcath 3. Resp[ failure: ongoing ICU care and now on vent with poss extubation later today; pu;lling fluid at HD seems to be gelp resp status 4. GNR bacteremia: may need Pcath remvoed if remains persistent bact 5. Nephrogenic anemia REC: cont HD TTS; meds as noted; repeat Bld cult if remains pos then will need Pcath removed; Abx as noted D/W ICU team in detail Time Spent With Patient Time: Total time managing care of this patient today ____ minutes. Progress Note: Quality Stroke Does the patient have a stroke diagnosis?: No
[2023-11-15] MEDS: 0.9 % Sodium Chloride Flush 3 ML SYRINGE IVFLUSH ×4 (01:45→20:29)
[2023-11-15] MEDS: hydrALAZINE HCl 20 MG/ML VIAL 5 MG IVPUSH ×2 (02:20→02:55)
[2023-11-15] MEDS: dexmedeTOMIDidine HCL/NS 400 MCG/100 ML INFUS..BTL 21.3 MCG IVCONT ×3 (04:04→12:39)
[2023-11-15 04:05] LABS: Glucose, Whole Blood 161 mg/dL (60-115)
[2023-11-15] MEDS: Albuterol/Iprat 2.5/0.5MG 3 ML AMPUL.NEB INHALE ×3 (04:30→15:51)
[2023-11-15 05:18] LABS: VBG HCO3 23 mmol/L (22-26); VBG pCO2 25 mmHg; VBG pH 7.58 (7.32-7.43); VBG pO2 65 mmHg
[2023-11-15 05:30] LABS: Venous Blood Gas Refer to POC result
[2023-11-15 05:36] LABS: Basophils Percent Auto 0.1 % (0-2); Hematocrit 23.7 % (37.0-47.0); Imm Gran Abs Auto 0.17 X10*3/uL (0.00-0.03); Imm Gran Pct Auto 1.2 % (0.0-0.4); Lymphocytes Absolute Auto 0.5 X10*3/uL (1.2-4.9); Lymphocytes Percent Auto 3.4 % (20-40); MANUAL DIFF FLAG SCAN; Mean Corpuscular HGB Conc 33.8 g/dl (31.0-35.0); Mean Corpuscular Volume 87.5 fL (80.0-98.0); Monocytes Absolute Auto 0.7 X10*3/uL (0.1-1.2); Monocytes Percent Auto 4.7 % (2-11); NRBC Pct Auto 0.3 /100WBC (0.0-0.2); Neutrophils Absolute Auto 12.7 x10*3/uL (2.0-8.3); Neutrophils Percent Auto 90.6 % (45-73); Red Blood Count 2.71 X10*6/uL (4.20-5.50); Red Cell Distribution Width 19.1 % (11.0-16.0); SCAN SMEAR FLAG 1
[2023-11-15 05:37] LABS: Mean Corpuscular Hemoglobin 29.5 pg (27.0-33.0); Platelet Count 59 X10*3/uL (160-400)
[2023-11-15] MEDS: hydrALAZINE HCl 20 MG/ML VIAL 10 MG IVPUSH ×3 (05:43→22:11)
[2023-11-15 05:48] LABS: Alanine Aminotransferase 45 U/L (0-31); Albumin Level 3.1 g/dL (3.5-5.0); Alkaline Phosphatase 126 U/L (39-117); Anion Gap 19 (12-20); Aspartate Amino Transferase 36 U/L (5-31); Bilirubin Total 1.5 mg/dL (0.0-1.0); Blood Urea Nitrogen 63 mg/dL (9-16); Calcium 8.2 mg/dL (8.4-10.2); Carbon Dioxide 23 mmol/L (22-29); Chloride 97 mmol/L (96-108); Creatinine Clr Calc Pharmacy 17.4; Estimated Glomerular Filt Rate 10; Glucose Random 172 mg/dL (60-115); Magnesium 2.4 mg/dL (1.6-2.6); Phosphorus 5.5 mg/dL (2.7-4.5); Potassium 3.7 mmol/L (3.3-5.1); Sodium 135 mmol/L (135-145)
[2023-11-15 05:56] LABS: SLIDE REVIEW VERIFIED
[2023-11-15 07:54] LABS: Glucose, Whole Blood 182 mg/dL (60-115)
[2023-11-15] MEDS: Heparin Sodium,Porcine 5,000 UNIT/ML VIAL 5000 UNIT SUBCUT ×2 (08:30→20:26)
[2023-11-15] MEDS: Chlorhexidine Gluc Oral Rinse 15 ML MOUTHWASH BUCCAL ×3 (08:31→20:26)
[2023-11-15] MEDS: Insulin Lispro 100 UNIT/ML 3 ML VIAL SUBCUT ×4 (08:31→20:26)
--- NOTE | 2023-11-15 08:52 | P.PNCC_ITS ---
Subjective Subjective Date of Service: 11/15/23 Interval History: On ventilator support this morning significant vent dyssynchrony this morning, started on Precedex drip Undergoing hemodialysis Critical Care Time (minutes): 35 Physical Exam 2 Vital Signs: Vital Signs: Last Vital Signs Temp 99.7 F 11/15/23 08:00 Pulse 95 11/15/23 08:00 Resp 23 H 11/15/23 08:00 BP 181/90 H 11/15/23 08:00 Pulse Ox 96 11/15/23 08:00 O2 Del Method Mechanical Ventil ation 11/15/23 08:00 O2 Flow Rate 50 11/12/23 11:00 FiO2 25 11/15/23 08:00 BMI result Body Mass Index 31.0 General: Patient is in acute distress, ill appearing and tired appearing Nutritional Appearance: well nourished and normal weight Eyes: appearance normal, both eyes and all related structures; Alignment and Position: alignment normal and position normal Neck: No lymphadenopathy, no thyromegaly Resp: bilateral air entry equal, bibasilar crackles heard Cardio: Regular rate, regular rhythm; Heart sounds: S1 normal heart sound present and S2 normal heart sound present GI: soft, nontender, no guarding, no hepatosplenomegaly : bladder normal to inspection, bladder normal to palpation, no renal angle tenderness Skin: no rashes or lesions noted and elasticity normal, stage 2 coccyx ulcer Neuro: Poor mental status, not following commands, no focal deficits Objective Data Labs 11/15/23 05:13 11/15/23 05:13 Labs: Laboratory Results - last 24 hr 11/14/23 11/14/23 11/14/23 12:02 15:48 19:54 WBC RBC Hgb Hct MCV MCH MCHC RDW Plt Count MPV Immature Gran % (Auto) Neut % (Auto) Lymph % (Auto) [place] % (Auto) Eos % (Auto) Baso % (Auto) Lymph # (Auto) [place] # (Auto) Eos # (Auto) Baso # (Auto) Abs Immat Gran (auto) Absolute Neuts (auto) Absolute Nucleated RBC Nucleated RBC % (auto) Smear Tech's Comments VBG pH VBG pCO2 VBG pO2 VBG HCO3 VBG O2 Saturation VBG Base Excess Sodium Potassium Chloride Carbon Dioxide Anion Gap BUN Creatinine Estim Creat Clear Calc Estimated GFR POC Glucose 204 H 198 H 186 H Random Glucose Calcium Phosphorus Magnesium Total Bilirubin AST ALT Alkaline Phosphatase Total Protein Albumin 11/14/23 11/15/23 11/15/23 23:55 03:59 05:07 WBC RBC Hgb Hct MCV MCH MCHC RDW Plt Count MPV Immature Gran % (Auto) Neut % (Auto) Lymph % (Auto) [place] % (Auto) Eos % (Auto) Baso % (Auto) Lymph # (Auto) [place] # (Auto) Eos # (Auto) Baso # (Auto) Abs Immat Gran (auto) Absolute Neuts (auto) Absolute Nucleated RBC Nucleated RBC % (auto) Smear Tech's Comments VBG pH 7.58 H VBG pCO2 25 VBG pO2 65 VBG HCO3 23 VBG O2 Saturation 92.0 VBG Base Excess 3.0 Sodium Potassium Chloride Carbon Dioxide Anion Gap BUN Creatinine Estim Creat Clear Calc Estimated GFR POC Glucose 148 H 161 H Random Glucose Calcium Phosphorus Magnesium Total Bilirubin AST ALT Alkaline Phosphatase Total Protein Albumin 11/15/23 11/15/23 05:13 07:50 WBC 14.0 H RBC 2.71 L Hgb 8.0 L Hct 23.7 L MCV 87.5 MCH 29.5 MCHC 33.8 RDW 19.1 H Plt Count 59 L MPV Not Reportable Immature Gran % (Auto) 1.2 H Neut % (Auto) 90.6 H Lymph % (Auto) 3.4 L [place] % (Auto) 4.7 Eos % (Auto) 0.0 Baso % (Auto) 0.1 Lymph # (Auto) 0.5 L [place] # (Auto) 0.7 Eos # (Auto) 0.0 Baso # (Auto) 0.0 Abs Immat Gran (auto) 0.17 H Absolute Neuts (auto) 12.7 H Absolute Nucleated RBC 0.040 H Nucleated RBC % (auto) 0.3 H Smear Tech's Comments VERIFIED VBG pH VBG pCO2 VBG pO2 VBG HCO3 VBG O2 Saturation VBG Base Excess Sodium 135 Potassium 3.7 Chloride 97 Carbon Dioxide 23 Anion Gap 19 BUN 63 H Creatinine 4.94 H* Estim Creat Clear Calc 17.4 Estimated GFR 10 POC Glucose 182 H Random Glucose 172 H Calcium 8.2 L Phosphorus 5.5 H Magnesium 2.4 Total Bilirubin 1.5 H AST 36 H ALT 45 H Alkaline Phosphatase 126 H Total Protein 7.0 Albumin 3.1 L Microbiology Microbiology Results: Microbiology 11/12/23 18:12 Leg - Right Gram Stain - Final 11/12/23 18:12 Leg - Right Routine Culture - Preliminary Pseudomonas aeruginosa Escherichia coli Staphylococcus aureus 11/13/23 08:32 Blood - Subclavian Blood Culture - Preliminary Prelim: GNR Gram Stain only 11/13/23 08:32 Blood - Subclavian Blood Culture - Preliminary Prelim: GNR Gram Stain only 11/11/23 14:29 Urine clean catch - Clean Catch Midstream Urine Culture - Final No growth. 11/10/23 15:14 Blood - Venous Blood Culture - Final Pseudomonas aeruginosa 11/10/23 15:14 Blood - Venous Blood Culture - Final Pseudomonas aeruginosa Progress Note: A&P Assessment and plan (1) Acute on chronic renal failure: Status: Acute (2) Noncompliance: Status: Acute (3) End stage chronic kidney disease: Status: Acute (4) Back pain: Status: Acute (5) Chronic kidney disease: Status: Acute (6) Hypertension, uncontrolled: Status: Acute Plan Neuro: Acute encephalopathy possibly due to metabolic encephalopathy Close neurological status monitoring in the ICU every hour Off sedation since yesterday, very poor mental status On precedex drip started this morning for vent dyssynchrony Received a pushes fentanyl this morning due to agitation and hypertension Cardiac: Cardiogenic shock: Improved PRN labetolol pushes to treat hypertensive urgency Respiratory: Acute hypoxemic respiratory failure due to COVID-19 pneumonia Intubated yesterday following which prolonged hypoxia Ventilator setting significantly improved after 2 sessions of dialysis possibly suggesting volume overload FiO2 30%, peep 5, TV 350, RR 20 Once the dialysis is completed we will place the patient on pressure support for weaning trials On dexamethasone for management of COVID-19 pneumonia will send sputum cultures for copious secretions GI: tube feeds Renal: End-stage renal disease: Undergoing session of hemodialysis this morning, her schedule is TTS On maintenance hemodialysis as per Nephrology We will closely monitor I's and O's Heme: Chronic anemia, closely monitor H&H, transfuse for hemoglobin less than 7 grams/deciliter Endocrine: Blood sugars under control Sliding scale insulin as needed Infectious disease: Blood cultures remains positive for Pseudomonas, cefepime changed to meropenem get a better sensitivities. We will add antibiotic locks. We will send repeat blood cultures from the dialysis line repeat blood cultures from the dialysis line remains positive for GNR As the cultures persistently remains positive consider catheter related infections, will do antibiotic lock with gentamycin. Musculoskeletal: Decubitus ulcer prevention protocol Lines: Hemodialysis catheter peripheral lines Prophylaxis: Heparin, pantoprazole Critical care time spent is about 35 minutes on ventilator management, sedation management, changing ventilator settings, weaning trials, close hemodynamic monitoring and stabilizing this critically ill patient during hemodialysis Quality Stroke Does the patient have a stroke diagnosis?: No VTE Prior VTE?: No VTE Risk Level:: Medical - moderate - high VTE Device Contraindication: Treatment Not Indicated VTE Drug Contraindication: N/A - Med Ordered
[2023-11-15] MEDS: fentaNYL citrate/PF 100 MCG/2 ML VIAL 50 MCG IVPUSH (09:34)
[2023-11-15] MEDS: Labetalol HCL 100 MG/20 ML VIAL 20 MG IVPUSH ×5 (09:37→22:12)
[2023-11-15 11:43] LABS: Glucose, Whole Blood 152 mg/dL (60-115)
[2023-11-15] MEDS: dexAMETHasone sod phosphate 4 MG/ML VIAL 6 MG IVPUSH (11:43)
[2023-11-15] MEDS: hydrALAZINE HCl 20 MG/ML VIAL IVPUSH (13:12)
--- NOTE | 2023-11-15 13:37 | P.PNNP_ITS ---
Subjective Subjective Date of Service: 11/15/23 Interval history: On ventilator support Underwent hemodialysis this am Physical Exam 2 Vital Signs: Vital Signs: Last Vital Signs Temp 100.4 F 11/15/23 13:00 Pulse 91 11/15/23 13:00 Resp 20 11/15/23 13:00 BP 177/97 H 11/15/23 13:00 Pulse Ox 94 11/15/23 13:00 O2 Del Method Mechanical Ventil ation 11/15/23 13:00 O2 Flow Rate 50 11/12/23 11:00 FiO2 25 11/15/23 13:21 BMI result Body Mass Index 31.0 on vent cvs: s1s2 Rs; cta abd soft Objective Data Labs 11/15/23 05:13 11/15/23 05:13 Labs: Laboratory Results - last 24 hr 11/14/23 11/14/23 11/14/23 15:48 19:54 23:55 WBC RBC Hgb Hct MCV MCH MCHC RDW Plt Count MPV Immature Gran % (Auto) Neut % (Auto) Lymph % (Auto) [place] % (Auto) Eos % (Auto) Baso % (Auto) Lymph # (Auto) [place] # (Auto) Eos # (Auto) Baso # (Auto) Abs Immat Gran (auto) Absolute Neuts (auto) Absolute Nucleated RBC Nucleated RBC % (auto) Smear Tech's Comments VBG pH VBG pCO2 VBG pO2 VBG HCO3 VBG O2 Saturation VBG Base Excess Sodium Potassium Chloride Carbon Dioxide Anion Gap BUN Creatinine Estim Creat Clear Calc Estimated GFR POC Glucose 198 H 186 H 148 H Random Glucose Calcium Phosphorus Magnesium Total Bilirubin AST ALT Alkaline Phosphatase Total Protein Albumin 11/15/23 11/15/23 11/15/23 03:59 05:07 05:13 WBC 14.0 H RBC 2.71 L Hgb 8.0 L Hct 23.7 L MCV 87.5 MCH 29.5 MCHC 33.8 RDW 19.1 H Plt Count 59 L MPV Not Reportable Immature Gran % (Auto) 1.2 H Neut % (Auto) 90.6 H Lymph % (Auto) 3.4 L [place] % (Auto) 4.7 Eos % (Auto) 0.0 Baso % (Auto) 0.1 Lymph # (Auto) 0.5 L [place] # (Auto) 0.7 Eos # (Auto) 0.0 Baso # (Auto) 0.0 Abs Immat Gran (auto) 0.17 H Absolute Neuts (auto) 12.7 H Absolute Nucleated RBC 0.040 H Nucleated RBC % (auto) 0.3 H Smear Tech's Comments VERIFIED VBG pH 7.58 H VBG pCO2 25 VBG pO2 65 VBG HCO3 23 VBG O2 Saturation 92.0 VBG Base Excess 3.0 Sodium 135 Potassium 3.7 Chloride 97 Carbon Dioxide 23 Anion Gap 19 BUN 63 H Creatinine 4.94 H* Estim Creat Clear Calc 17.4 Estimated GFR 10 POC Glucose 161 H Random Glucose 172 H Calcium 8.2 L Phosphorus 5.5 H Magnesium 2.4 Total Bilirubin 1.5 H AST 36 H ALT 45 H Alkaline Phosphatase 126 H Total Protein 7.0 Albumin 3.1 L 11/15/23 11/15/23 07:50 11:37 WBC RBC Hgb Hct MCV MCH MCHC RDW Plt Count MPV Immature Gran % (Auto) Neut % (Auto) Lymph % (Auto) [place] % (Auto) Eos % (Auto) Baso % (Auto) Lymph # (Auto) [place] # (Auto) Eos # (Auto) Baso # (Auto) Abs Immat Gran (auto) Absolute Neuts (auto) Absolute Nucleated RBC Nucleated RBC % (auto) Smear Tech's Comments VBG pH VBG pCO2 VBG pO2 VBG HCO3 VBG O2 Saturation VBG Base Excess Sodium Potassium Chloride Carbon Dioxide Anion Gap BUN Creatinine Estim Creat Clear Calc Estimated GFR POC Glucose 182 H 152 H Random Glucose Calcium Phosphorus Magnesium Total Bilirubin AST ALT Alkaline Phosphatase Total Protein Albumin Microbiology Microbiology Results: Microbiology 11/12/23 18:12 Leg - Right Gram Stain - Final 11/12/23 18:12 Leg - Right Routine Culture - Preliminary Pseudomonas aeruginosa Escherichia coli Staphylococcus aureus 11/13/23 08:32 Blood - Subclavian Blood Culture - Preliminary Prelim: GNR Gram Stain only 11/13/23 08:32 Blood - Subclavian Blood Culture - Preliminary Prelim: GNR Gram Stain only 11/11/23 14:29 Urine clean catch - Clean Catch Midstream Urine Culture - Final No growth. 11/10/23 15:14 Blood - Venous Blood Culture - Final Pseudomonas aeruginosa 11/10/23 15:14 Blood - Venous Blood Culture - Final Pseudomonas aeruginosa Procedures Date of Service Date of Service: 11/15/23 Assessment & Plan Assessment and plan (1) End stage chronic kidney disease: Status: Acute Plan 1. ESRD: Normally TTS schedule h/o very poorly complaint w HD treatments 2. Hemoaccess: Pcath 3. Resp failure: ongoing ICU care and now on vent will pull fluid at HD- seems to be gelp resp status 4. GNR bacteremia: may need Pcath remvoed if remains persistent bacteremia- source appears to be the foot wound 5. Nephrogenic anemia REC: cont HD TTS; meds as noted; repeat Bld cult if remains pos then will need Pcath removed; Abx as noted D/W ICU team Time Spent With Patient Time: Total time managing care of this patient today ____ minutes. Progress Note: Quality Stroke Does the patient have a stroke diagnosis?: No
--- NOTE | 2023-11-15 13:57 | MHC.CM.PN ---
Pt remains in ICU on ventilatory support: HD today and started on a Precedex gtt for vent synchrony. Will have an cath ATB lock placed secondary to line infection. CM to follow for finalization of d/c needs. Pt from home w/family and [employer] care but may require skilled services or STR.
--- NOTE | 2023-11-15 16:03 | HO.WOUND ---
Wound Consult: Initial 33yr old female? admitted to [facility] on 11/10/23 - See progress notes and H&P for detailed history.? direct message from direct care nurse to review uploaded photo of patient sacral area. Unable to assess in person at this time - will assess in person at future date and time.? Chart review reveals patient remains critically ill - see labs values and reports. The photo was reviewed etiology is unclear - the dark irregular pattern has odd feather like pigmentation changes not consistent with pressure, the dark pigmented tissue appears to wrap around the anus and is not consistent with pressure from this photo review. To determine etiology in person assessment and continued observation must be made. Of note the patients lab work reveals Thrombocytopenia with most recent platelet values of 59 which may account for the pigmentation and tissue changes. Topical recommendation will remain the same despite etiology - recommend Triad application and no foam application given the fragile appears of the affected tissue in photo review. Sacrococcygeal Etiology: ?Unknown Etiology Wound Bed: partial thickness tissue loss with red viable wound bed Edges: ? irregular and not consistent with pressure given the edges and feathering of dark pigmentation Pao wound: ? irregular dark pigmentation patterns and observable erythema Goals of Treatment: ? Off Load Pressure and Triad to protect from friction and moisture and allow for moist wound healing. Sacrococcygeal area - Off Load Pressure - Cleanse with PH balance spray or wipes, pat dry. ?Apply thin layer of Triad to wound bed - only pat and dab no scrub and rub when soiling occurs. Reapply thin layer PRN after each episode of incontinence. Re-consult wound care Nurse for wound deterioration or wound changes.
[2023-11-15] MEDS: SODIUM CHLORIDE 0.9% INTRACATH (16:15)
[2023-11-15] MEDS: GENTAMICIN SULFATE INTRACATH (16:15)
[2023-11-15 16:27] LABS: Glucose, Whole Blood 155 mg/dL (60-115)
[2023-11-15] MEDS: Acetaminophen 325 MG TABLET 975 MG PO (16:32)
[2023-11-15] MEDS: dexmedeTOMIDidine HCL/NS 400 MCG/100 ML INFUS..BTL 12.78 MCG IVCONT (19:44)
[2023-11-15 20:14] LABS: Glucose, Whole Blood 175 mg/dL (60-115)
[2023-11-15] MEDS: carvediloL 6.25 MG TABLET PO ×2 (21:02→22:13)
[2023-11-15] MEDS: hydrALAZINE HCl 50 MG TABLET PO (23:38)
[2023-11-16] VITALS (48 sets, daily range): BP systolic 126–204; BP diastolic 67–91; PULSE 83–94; RESP 13–30; TEMP 32.2–38; O2SAT 89–100; BMI 32.1
[2023-11-16] MEDS: Albuterol/Iprat 2.5/0.5MG 3 ML AMPUL.NEB INHALE ×4 (00:19→17:21)
[2023-11-16 00:34] LABS: Glucose, Whole Blood 178 mg/dL (60-115)
[2023-11-16] MEDS: Labetalol HCL 100 MG/20 ML VIAL 20 MG IVPUSH ×5 (00:41→17:50)
[2023-11-16] MEDS: dexmedeTOMIDidine HCL/NS 400 MCG/100 ML INFUS..BTL 31.95 MCG IVCONT (00:43)
[2023-11-16] MEDS: dexmedeTOMIDidine HCL/NS 400 MCG/100 ML INFUS..BTL 27.69 MCG IVCONT (03:39)
[2023-11-16 05:08] LABS: VBG Base Excess 5.6 mmol/L; VBG HCO3 28 mmol/L (22-26); VBG pCO2 32 mmHg; VBG pH 7.53 (7.32-7.43); VBG pO2 77 mmHg
[2023-11-16 05:09] LABS: MANUAL DIFF FLAG NO
[2023-11-16 05:16] LABS: Basophils Percent Auto 0.4 % (0-2); Hematocrit 26.6 % (37.0-47.0); Hemoglobin 8.7 g/dl (12.0-16.0); Imm Gran Abs Auto 0.22 X10*3/uL (0.00-0.03); Imm Gran Pct Auto 2.7 % (0.0-0.4); Lymphocytes Absolute Auto 0.5 X10*3/uL (1.2-4.9); Lymphocytes Percent Auto 6.3 % (20-40); Mean Corpuscular HGB Conc 32.7 g/dl (31.0-35.0); Mean Corpuscular Volume 88.7 fL (80.0-98.0); Monocytes Percent Auto 11.7 % (2-11); NRBC Pct Auto 0.8 /100WBC (0.0-0.2); Neutrophils Absolute Auto 6.5 x10*3/uL (2.0-8.3); Neutrophils Percent Auto 78.9 % (45-73); Platelet Count 68 X10*3/uL (160-400); Red Cell Distribution Width 19.5 % (11.0-16.0); Venous Blood Gas Refer to POC result; White Blood Count 8.3 X10*3/uL (4.8-10.8)
[2023-11-16 05:33] LABS: Alanine Aminotransferase 36 U/L (0-31); Albumin Level 3.1 g/dL (3.5-5.0); Alkaline Phosphatase 153 U/L (39-117); Anion Gap 20 (12-20); Aspartate Amino Transferase 29 U/L (5-31); Bilirubin Total 1.7 mg/dL (0.0-1.0); Blood Urea Nitrogen 65 mg/dL (9-16); Calcium 8.5 mg/dL (8.4-10.2); Carbon Dioxide 26 mmol/L (22-29); Chloride 97 mmol/L (96-108); Creatinine Clr Calc Pharmacy 20.2; Estimated Glomerular Filt Rate 11; Glucose Random 217 mg/dL (60-115); Magnesium 2.5 mg/dL (1.6-2.6); Phosphorus 5.5 mg/dL (2.7-4.5); Sodium 139 mmol/L (135-145); Total Protein 7.3 g/dL (6.5-8.0)
[2023-11-16 07:20] LABS: Glucose, Whole Blood 218 mg/dL (60-115)
[2023-11-16] MEDS: Heparin Sodium,Porcine 5,000 UNIT/ML VIAL 5000 UNIT SUBCUT (08:47)
[2023-11-16] MEDS: Chlorhexidine Gluc Oral Rinse 15 ML MOUTHWASH BUCCAL ×3 (08:47→19:46)
[2023-11-16] MEDS: hydrALAZINE HCl 50 MG TABLET PO ×3 (08:47→22:22)
[2023-11-16] MEDS: carvediloL 12.5 MG TABLET PO ×2 (08:48→19:46)
[2023-11-16] MEDS: Insulin Lispro 100 UNIT/ML 3 ML VIAL SUBCUT ×4 (08:48→22:22)
[2023-11-16] MEDS: dexAMETHasone sod phosphate 4 MG/ML VIAL 6 MG IVPUSH (08:48)
[2023-11-16] MEDS: 0.9 % Sodium Chloride Flush 3 ML SYRINGE IVFLUSH ×3 (08:49→23:51)
[2023-11-16] MEDS: dexmedeTOMIDidine HCL/NS 400 MCG/100 ML INFUS..BTL 14.91 MCG IVCONT (09:03)
--- NOTE | 2023-11-16 10:34 | MHC.CLN ---
F/U PT REMAINS INTUBATED AND SEDATED DISCUSSED AT ROUNDS WITH MD-PLAN TO EXTUBATE TODAY PT RECEIVING NEPRO AT MAX GOAL RATE 25ML/HR PROVIDES 1080KCALS, 49G PROTEIN, 785ML FREE WATER FROM FORMULA CONTINUE TO MONITOR TOLERANCE AND LYTES
[2023-11-16 11:43] LABS: Glucose, Whole Blood 249 mg/dL (60-115)
--- NOTE | 2023-11-16 13:42 | PM.PNNEP ---
Subjective Subjective Date of Service: 11/16/23 Interval history: On ventilator support Physical Exam Vital Signs: Vital Signs: Last Vital Signs Temp 100.4 F 11/16/23 13:00 Pulse 91 11/16/23 13:00 Resp 22 H 11/16/23 13:00 BP 152/81 H 11/16/23 13:00 Pulse Ox 90 L 11/16/23 13:00 O2 Del Method Mechanical Ventil ation 11/16/23 13:00 O2 Flow Rate 50 11/12/23 11:00 FiO2 21 11/16/23 13:00 BMI result Body Mass Index 32.1 on vent cvs: s1s2 Rs; cta abd soft Objective Data Labs 11/16/23 05:02 11/16/23 05:02 Labs: Laboratory Results - last 24 hr 11/15/23 11/15/23 11/16/23 16:24 20:06 00:19 WBC RBC Hgb Hct MCV MCH MCHC RDW Plt Count MPV Immature Gran % (Auto) Neut % (Auto) Lymph % (Auto) [place] % (Auto) Eos % (Auto) Baso % (Auto) Lymph # (Auto) [place] # (Auto) Eos # (Auto) Baso # (Auto) Abs Immat Gran (auto) Absolute Neuts (auto) Absolute Nucleated RBC Nucleated RBC % (auto) VBG pH VBG pCO2 VBG pO2 VBG HCO3 VBG O2 Saturation VBG Base Excess Sodium Potassium Chloride Carbon Dioxide Anion Gap BUN Creatinine Estim Creat Clear Calc Estimated GFR POC Glucose 155 H 175 H 178 H Random Glucose Calcium Phosphorus Magnesium Total Bilirubin AST ALT Alkaline Phosphatase Total Protein Albumin 11/16/23 11/16/23 11/16/23 04:57 05:02 07:13 WBC 8.3 RBC 3.00 L Hgb 8.7 L Hct 26.6 L MCV 88.7 MCH 29.0 MCHC 32.7 RDW 19.5 H Plt Count 68 L MPV TNP Immature Gran % (Auto) 2.7 H Neut % (Auto) 78.9 H Lymph % (Auto) 6.3 L [place] % (Auto) 11.7 H Eos % (Auto) 0.0 Baso % (Auto) 0.4 Lymph # (Auto) 0.5 L [place] # (Auto) 1.0 Eos # (Auto) 0.0 Baso # (Auto) 0.0 Abs Immat Gran (auto) 0.22 H Absolute Neuts (auto) 6.5 Absolute Nucleated RBC 0.070 H Nucleated RBC % (auto) 0.8 H VBG pH 7.53 H VBG pCO2 32 VBG pO2 77 VBG HCO3 28 H VBG O2 Saturation 95.0 VBG Base Excess 5.6 Sodium 139 Potassium 4.0 Chloride 97 Carbon Dioxide 26 Anion Gap 20 BUN 65 H Creatinine 4.39 H* Estim Creat Clear Calc 20.2 Estimated GFR 11 POC Glucose 218 H Random Glucose 217 H Calcium 8.5 Phosphorus 5.5 H Magnesium 2.5 Total Bilirubin 1.7 H AST 29 ALT 36 H Alkaline Phosphatase 153 H Total Protein 7.3 Albumin 3.1 L 11/16/23 11:40 WBC RBC Hgb Hct MCV MCH MCHC RDW Plt Count MPV Immature Gran % (Auto) Neut % (Auto) Lymph % (Auto) [place] % (Auto) Eos % (Auto) Baso % (Auto) Lymph # (Auto) [place] # (Auto) Eos # (Auto) Baso # (Auto) Abs Immat Gran (auto) Absolute Neuts (auto) Absolute Nucleated RBC Nucleated RBC % (auto) VBG pH VBG pCO2 VBG pO2 VBG HCO3 VBG O2 Saturation VBG Base Excess Sodium Potassium Chloride Carbon Dioxide Anion Gap BUN Creatinine Estim Creat Clear Calc Estimated GFR POC Glucose 249 H Random Glucose Calcium Phosphorus Magnesium Total Bilirubin AST ALT Alkaline Phosphatase Total Protein Albumin Microbiology Microbiology Results: Microbiology 11/15/23 11:14 Blood - Central Line Blood Culture - Preliminary No growth after 24 hours. 11/15/23 11:09 Blood - Central Line Blood Culture - Preliminary No growth after 24 hours. 11/15/23 11:38 Trachea Gram Stain - Final 11/15/23 11:38 Trachea Sputum Culture - Preliminary Culture in progress. 11/13/23 08:32 Blood - Subclavian Blood Culture - Final Pseudomonas aeruginosa 11/13/23 08:32 Blood - Subclavian Blood Culture - Final Pseudomonas aeruginosa 11/12/23 18:12 Leg - Right Gram Stain - Final 11/12/23 18:12 Leg - Right Routine Culture - Final Pseudomonas aeruginosa Escherichia coli Staphylococcus aureus 11/11/23 14:29 Urine clean catch - Clean Catch Midstream Urine Culture - Final No growth. 11/10/23 15:14 Blood - Venous Blood Culture - Final Pseudomonas aeruginosa 11/10/23 15:14 Blood - Venous Blood Culture - Final Pseudomonas aeruginosa Procedures Date of Service Date of Service: 11/16/23 Assessment & Plan Assessment and plan (1) End stage chronic kidney disease: Status: Acute Plan 1. ESRD: Normally TTS schedule h/o very poorly complaint w HD treatments 2. Hemoaccess: Pcath 3. Resp failure: ongoing ICU care and now on vent will pull fluid at HD- seems to be gelp resp status 4. GNR bacteremia: may need Pcath removed if remains persistent bacteremia- source appears to be the foot wound 5. Nephrogenic anemia REC: cont HD TTS; meds as noted; repeat Bld cult if remains pos then will need Pcath removed; Abx as noted D/W ICU team Time Spent With Patient Time: Total time managing care of this patient today ____ minutes. Progress Note: Quality Stroke Does the patient have a stroke diagnosis?: No
--- NOTE | 2023-11-16 14:21 | MHC.CM.PN ---
Pt remains intubated in ICU: Continues on IV ATB and HD on scheduled days: goals of care today are to reduce Precedex and assess ability to extubate. D/C plan remains for a return to home w/family and existing [employer] support in addition to outpt HD on . Family to transport
--- NOTE | 2023-11-16 16:05 | PM.CCPN ---
Subjective Subjective Date of Service: 11/16/23 Critical Care Time (minutes): 35 Comment: No new events, continues to be on ventilator support Episodes of agitation and ventilator dyssynchrony overnight on Precedex drip which has been turned off since this morning Physical Exam Vital Signs: Vital Signs: Last Vital Signs Temp 99.5 F 11/16/23 15:51 Pulse 88 11/16/23 15:51 Resp 18 11/16/23 15:51 BP 166/78 H 11/16/23 15:51 Pulse Ox 90 L 11/16/23 15:58 O2 Del Method Mechanical Ventil ation 11/16/23 15:51 O2 Flow Rate 50 11/12/23 11:00 FiO2 21 11/16/23 15:58 BMI result Body Mass Index 32.1 General: acute distress, ill appearing and tired appearing Nutritional Appearance: well nourished and normal weight Eyes: appearance normal, both eyes and all related structures; Alignment and Position: alignment normal and position normal Neck: No lymphadenopathy, no thyromegaly Resp: bilateral air entry equal, occasional added sounds present mostly in the lung bases Cardio: Regular rate, regular rhythm; Heart sounds: S1 normal heart sound present and S2 normal heart sound present GI: soft, nontender, no guarding, no hepatosplenomegaly : bladder normal to inspection, bladder normal to palpation, no renal angle tenderness Skin: no rashes or lesions noted and elasticity normal Neuro: o sedated, no focal deficits Objective Data Labs 11/16/23 05:02 11/16/23 05:02 Labs: Laboratory Results - last 24 hr 11/15/23 11/15/23 11/16/23 16:24 20:06 00:19 WBC RBC Hgb Hct MCV MCH MCHC RDW Plt Count MPV Immature Gran % (Auto) Neut % (Auto) Lymph % (Auto) [place] % (Auto) Eos % (Auto) Baso % (Auto) Lymph # (Auto) [place] # (Auto) Eos # (Auto) Baso # (Auto) Abs Immat Gran (auto) Absolute Neuts (auto) Absolute Nucleated RBC Nucleated RBC % (auto) VBG pH VBG pCO2 VBG pO2 VBG HCO3 VBG O2 Saturation VBG Base Excess Sodium Potassium Chloride Carbon Dioxide Anion Gap BUN Creatinine Estim Creat Clear Calc Estimated GFR POC Glucose 155 H 175 H 178 H Random Glucose Calcium Phosphorus Magnesium Total Bilirubin AST ALT Alkaline Phosphatase Total Protein Albumin 11/16/23 11/16/23 11/16/23 04:57 05:02 07:13 WBC 8.3 RBC 3.00 L Hgb 8.7 L Hct 26.6 L MCV 88.7 MCH 29.0 MCHC 32.7 RDW 19.5 H Plt Count 68 L MPV TNP Immature Gran % (Auto) 2.7 H Neut % (Auto) 78.9 H Lymph % (Auto) 6.3 L [place] % (Auto) 11.7 H Eos % (Auto) 0.0 Baso % (Auto) 0.4 Lymph # (Auto) 0.5 L [place] # (Auto) 1.0 Eos # (Auto) 0.0 Baso # (Auto) 0.0 Abs Immat Gran (auto) 0.22 H Absolute Neuts (auto) 6.5 Absolute Nucleated RBC 0.070 H Nucleated RBC % (auto) 0.8 H VBG pH 7.53 H VBG pCO2 32 VBG pO2 77 VBG HCO3 28 H VBG O2 Saturation 95.0 VBG Base Excess 5.6 Sodium 139 Potassium 4.0 Chloride 97 Carbon Dioxide 26 Anion Gap 20 BUN 65 H Creatinine 4.39 H* Estim Creat Clear Calc 20.2 Estimated GFR 11 POC Glucose 218 H Random Glucose 217 H Calcium 8.5 Phosphorus 5.5 H Magnesium 2.5 Total Bilirubin 1.7 H AST 29 ALT 36 H Alkaline Phosphatase 153 H Total Protein 7.3 Albumin 3.1 L 11/16/23 11:40 WBC RBC Hgb Hct MCV MCH MCHC RDW Plt Count MPV Immature Gran % (Auto) Neut % (Auto) Lymph % (Auto) [place] % (Auto) Eos % (Auto) Baso % (Auto) Lymph # (Auto) [place] # (Auto) Eos # (Auto) Baso # (Auto) Abs Immat Gran (auto) Absolute Neuts (auto) Absolute Nucleated RBC Nucleated RBC % (auto) VBG pH VBG pCO2 VBG pO2 VBG HCO3 VBG O2 Saturation VBG Base Excess Sodium Potassium Chloride Carbon Dioxide Anion Gap BUN Creatinine Estim Creat Clear Calc Estimated GFR POC Glucose 249 H Random Glucose Calcium Phosphorus Magnesium Total Bilirubin AST ALT Alkaline Phosphatase Total Protein Albumin Microbiology Microbiology Results: Microbiology 11/15/23 11:14 Blood - Central Line Blood Culture - Preliminary No growth after 24 hours. 11/15/23 11:09 Blood - Central Line Blood Culture - Preliminary No growth after 24 hours. 11/15/23 11:38 Trachea Gram Stain - Final 11/15/23 11:38 Trachea Sputum Culture - Preliminary Culture in progress. 11/13/23 08:32 Blood - Subclavian Blood Culture - Final Pseudomonas aeruginosa 11/13/23 08:32 Blood - Subclavian Blood Culture - Final Pseudomonas aeruginosa 11/12/23 18:12 Leg - Right Gram Stain - Final 11/12/23 18:12 Leg - Right Routine Culture - Final Pseudomonas aeruginosa Escherichia coli Staphylococcus aureus 11/11/23 14:29 Urine clean catch - Clean Catch Midstream Urine Culture - Final No growth. 11/10/23 15:14 Blood - Venous Blood Culture - Final Pseudomonas aeruginosa 11/10/23 15:14 Blood - Venous Blood Culture - Final Pseudomonas aeruginosa Progress Note: A&P Assessment and plan (1) Acute on chronic renal failure: Status: Acute (2) Noncompliance: Status: Acute (3) End stage chronic kidney disease: Status: Acute (4) Back pain: Status: Acute (5) Chronic kidney disease: Status: Acute Plan Neuro: Acute encephalopathy possibly due to metabolic encephalopathy Close neurological status monitoring in the ICU every hour On precedex drip for vent dyssynchrony. If the patient becomes dyssynchronous overnight we will add propofol drip. Received a pushes fentanyl this morning due to agitation and hypertension will add seroquel 50mg HS and 25mg AM, oxycodone 5mg TID to wean sedation Cardiac: Cardiogenic shock: Improved PRN labetolol pushes to treat hypertensive urgency Respiratory: Acute hypoxemic respiratory failure due to COVID-19 pneumonia Intubated yesterday following which prolonged hypoxia Ventilator setting significantly improved after 2 sessions of dialysis possibly suggesting volume overload FiO2 30%, peep 5, TV 350, RR 20 Place the patient on pressor support trials this morning episodes of apnea and and tachypnea not ready for extubation yet. We will continue the patient on pressor support as long as she could tolerate overnight, if she fails we will switch her back to volume control mode On dexamethasone for management of COVID-19 pneumonia GI: tube feeds Renal: End-stage renal disease: Undergoing hemodialysis as per TTS schedule On maintenance hemodialysis as per Nephrology We will closely monitor I's and O's Heme: Chronic anemia, closely monitor H&H, transfuse for hemoglobin less than 7 grams/deciliter Endocrine: Blood sugars under control Sliding scale insulin as needed Infectious disease: Blood cultures remains positive for Pseudomonas, cefepime changed to meropenem get a better sensitivities. On gentamicin antibiotic lock after each dialysis sessions. We will send repeat blood cultures from the dialysis line last set if blood cultures are negative so far As the cultures persistently remains positive consider catheter related infections, will do antibiotic lock with gentamycin. Musculoskeletal: Decubitus ulcer prevention protocol Lines: Hemodialysis catheter peripheral lines Prophylaxis: Heparin, pantoprazole Quality Stroke Does the patient have a stroke diagnosis?: No VTE Prior VTE?: No VTE Risk Level:: Medical - moderate - high VTE Device Contraindication: Treatment Not Indicated VTE Drug Contraindication: N/A - Med Ordered
[2023-11-16 16:31] LABS: Glucose, Whole Blood 251 mg/dL (60-115)
[2023-11-16] MEDS: dexmedeTOMIDidine HCL/NS 400 MCG/100 ML INFUS..BTL 17.04 MCG IVCONT ×2 (18:38→23:50)
[2023-11-16 21:18] LABS: Glucose, Whole Blood 239 mg/dL (60-115)
[2023-11-17] VITALS (37 sets, daily range): BP systolic 124–173; BP diastolic 70–98; PULSE 75–106; RESP 14–35; TEMP 33.9–37.5; O2SAT 93–99; BMI 32.1
[2023-11-17] MEDS: Albuterol/Iprat 2.5/0.5MG 3 ML AMPUL.NEB INHALE ×4 (00:11→19:20)
[2023-11-17] MEDS: dexmedeTOMIDidine HCL/NS 400 MCG/100 ML INFUS..BTL 17.04 MCG IVCONT ×2 (04:39→10:35)
[2023-11-17 05:25] LABS: VBG Base Excess 1.8 mmol/L; VBG HCO3 24 mmol/L (22-26); VBG pCO2 31 mmHg; VBG pO2 76 mmHg
[2023-11-17 05:26] LABS: Venous Blood Gas Refer to POC result
[2023-11-17 05:46] LABS: Basophils Percent Auto 0.2 % (0-2); Hematocrit 27.3 % (37.0-47.0); Hemoglobin 8.7 g/dl (12.0-16.0); Imm Gran Abs Auto 0.11 X10*3/uL (0.00-0.03); Lymphocytes Absolute Auto 0.5 X10*3/uL (1.2-4.9); Lymphocytes Percent Auto 8.4 % (20-40); MANUAL DIFF FLAG SCAN; Mean Corpuscular HGB Conc 31.9 g/dl (31.0-35.0); Mean Corpuscular Hemoglobin 29.4 pg (27.0-33.0); Mean Corpuscular Volume 92.2 fL (80.0-98.0); Mean Platelet Volume 11.7 fL (9.4-12.3); Monocytes Absolute Auto 0.7 X10*3/uL (0.1-1.2); Monocytes Percent Auto 12.1 % (2-11); NRBC Pct Auto 0.7 /100WBC (0.0-0.2); Neutrophils Absolute Auto 4.3 x10*3/uL (2.0-8.3); Neutrophils Percent Auto 77.3 % (45-73); Platelet Count 80 X10*3/uL (160-400); Red Blood Count 2.96 X10*6/uL (4.20-5.50); Red Cell Distribution Width 19.2 % (11.0-16.0); SCAN SMEAR FLAG 1; White Blood Count 5.6 X10*3/uL (4.8-10.8)
[2023-11-17 06:03] LABS: SLIDE REVIEW VERIFIED
[2023-11-17 06:10] LABS: Alanine Aminotransferase 28 U/L (0-31); Alkaline Phosphatase 138 U/L (39-117); Anion Gap 23 (12-20); Aspartate Amino Transferase 23 U/L (5-31); Bilirubin Total 1.5 mg/dL (0.0-1.0); Blood Urea Nitrogen 113 mg/dL (9-16); Calcium 7.9 mg/dL (8.4-10.2); Carbon Dioxide 22 mmol/L (22-29); Chloride 98 mmol/L (96-108); Creatinine Clr Calc Pharmacy 15.6; Estimated Glomerular Filt Rate 9; Glucose Random 243 mg/dL (60-115); Magnesium 2.8 mg/dL (1.6-2.6); Phosphorus 7.9 mg/dL (2.7-4.5); Potassium 4.7 mmol/L (3.3-5.1); Sodium 138 mmol/L (135-145); Total Protein 6.8 g/dL (6.5-8.0)
[2023-11-17 07:19] LABS: Glucose, Whole Blood 238 mg/dL (60-115)
[2023-11-17] MEDS: Insulin Lispro 100 UNIT/ML 3 ML VIAL SUBCUT ×3 (08:24→20:49)
[2023-11-17] MEDS: Calcium Gluconate/NaCl,Iso-Osm 1 GM/50 ML PLAST..BAG IV (08:32)
[2023-11-17] MEDS: dexAMETHasone sod phosphate 4 MG/ML VIAL 6 MG IVPUSH (08:32)
[2023-11-17] MEDS: Albumin Human 25 % 100 ML IV ×3 (08:32→19:43)
[2023-11-17] MEDS: Chlorhexidine Gluc Oral Rinse 15 ML MOUTHWASH BUCCAL ×2 (08:32→16:47)
[2023-11-17] MEDS: 0.9 % Sodium Chloride Flush 3 ML SYRINGE IVFLUSH ×3 (08:33→19:43)
[2023-11-17 11:17] LABS: Glucose, Whole Blood 142 mg/dL (60-115)
[2023-11-17] MEDS: GENTAMICIN SULFATE INTRACATH (11:44)
[2023-11-17] MEDS: SODIUM CHLORIDE 0.9% INTRACATH (11:44)
[2023-11-17] MEDS: polyethylene glycoL 3350 17 GM POWD.PACK PO (11:46)
--- NOTE | 2023-11-17 12:20 | P.PNCC_ITS ---
Subjective Subjective Date of Service: 11/17/23 Critical Care Time (minutes): 40 Comment: Continues to be on ventilator support this morning, on pressor support since yesterday Underwent hemodialysis this morning Physical Exam 2 Vital Signs: Vital Signs: Last Vital Signs Temp 97.7 F 11/17/23 12:00 Pulse 83 11/17/23 12:00 Resp 15 11/17/23 12:00 BP 124/72 11/17/23 12:00 Pulse Ox 99 11/17/23 12:00 O2 Del Method Mechanical Ventil ation 11/17/23 12:00 O2 Flow Rate 50 11/12/23 11:00 FiO2 21 11/17/23 12:00 BMI result Body Mass Index 32.1 General: She is in acute distress, ill appearing and tired appearing Nutritional Appearance: well nourished and overweight Eyes: appearance normal, both eyes and all related structures; Alignment and Position: alignment normal and position normal Neck: No lymphadenopathy, no thyromegaly Resp: bilateral air entry equal, occasional added sounds present Cardio: Regular rate, regular rhythm; Heart sounds: S1 normal heart sound present and S2 normal heart sound present GI: soft, nontender, no guarding, no hepatosplenomegaly : bladder normal to inspection, bladder normal to palpation, no renal angle tenderness Skin: no rashes or lesions noted and elasticity normal Neuro: o bilateral feet amputation, wound looks dirty with scab, no focal deficits, reaches out for the tube Objective Data Labs 11/17/23 05:18 11/17/23 05:18 Labs: Laboratory Results - last 24 hr 11/16/23 11/16/23 11/17/23 16:26 21:14 05:15 WBC RBC Hgb Hct MCV MCH MCHC RDW Plt Count MPV Immature Gran % (Auto) Neut % (Auto) Lymph % (Auto) [place] % (Auto) Eos % (Auto) Baso % (Auto) Lymph # (Auto) [place] # (Auto) Eos # (Auto) Baso # (Auto) Abs Immat Gran (auto) Absolute Neuts (auto) Absolute Nucleated RBC Nucleated RBC % (auto) Smear Tech's Comments VBG pH 7.50 H VBG pCO2 31 VBG pO2 76 VBG HCO3 24 VBG O2 Saturation 95.0 VBG Base Excess 1.8 Sodium Potassium Chloride Carbon Dioxide Anion Gap BUN Creatinine Estim Creat Clear Calc Estimated GFR POC Glucose 251 H 239 H Random Glucose Calcium Phosphorus Magnesium Total Bilirubin AST ALT Alkaline Phosphatase Total Protein Albumin 11/17/23 11/17/23 11/17/23 05:18 07:13 11:12 WBC 5.6 RBC 2.96 L Hgb 8.7 L Hct 27.3 L MCV 92.2 MCH 29.4 MCHC 31.9 RDW 19.2 H Plt Count 80 L MPV 11.7 Immature Gran % (Auto) 2.0 H Neut % (Auto) 77.3 H Lymph % (Auto) 8.4 L [place] % (Auto) 12.1 H Eos % (Auto) 0.0 Baso % (Auto) 0.2 Lymph # (Auto) 0.5 L [place] # (Auto) 0.7 Eos # (Auto) 0.0 Baso # (Auto) 0.0 Abs Immat Gran (auto) 0.11 H Absolute Neuts (auto) 4.3 Absolute Nucleated RBC 0.040 H Nucleated RBC % (auto) 0.7 H Smear Tech's Comments VERIFIED VBG pH VBG pCO2 VBG pO2 VBG HCO3 VBG O2 Saturation VBG Base Excess Sodium 138 Potassium 4.7 Chloride 98 Carbon Dioxide 22 Anion Gap 23 H BUN 113 H Creatinine 5.66 H* Estim Creat Clear Calc 15.6 Estimated GFR 9 POC Glucose 238 H 142 H Random Glucose 243 H Calcium 7.9 L D Phosphorus 7.9 H Magnesium 2.8 H Total Bilirubin 1.5 H AST 23 ALT 28 Alkaline Phosphatase 138 H Total Protein 6.8 Albumin 3.0 L Microbiology Microbiology Results: Microbiology 11/15/23 11:09 Blood - Central Line Blood Culture - Preliminary Gram negative laurie 11/15/23 11:38 Trachea Gram Stain - Final 11/15/23 11:38 Trachea Sputum Culture - Preliminary Yeast 11/15/23 11:14 Blood - Central Line Blood Culture - Preliminary No growth after 24 hours. 11/13/23 08:32 Blood - Subclavian Blood Culture - Final Pseudomonas aeruginosa 11/13/23 08:32 Blood - Subclavian Blood Culture - Final Pseudomonas aeruginosa 11/12/23 18:12 Leg - Right Gram Stain - Final 11/12/23 18:12 Leg - Right Routine Culture - Final Pseudomonas aeruginosa Escherichia coli Staphylococcus aureus 11/11/23 14:29 Urine clean catch - Clean Catch Midstream Urine Culture - Final No growth. 11/10/23 15:14 Blood - Venous Blood Culture - Final Pseudomonas aeruginosa 11/10/23 15:14 Blood - Venous Blood Culture - Final Pseudomonas aeruginosa Progress Note: A&P Assessment and plan (1) Acute on chronic renal failure: Status: Acute (2) End stage chronic kidney disease: Status: Acute (3) Chronic ulcer of right foot due to diabetes mellitus: Status: Acute (4) Chronic kidney disease: Status: Acute (5) Acute hypoxemic respiratory failure: Status: Acute (6) COVID-19: Status: Acute Plan Neuro: Acute encephalopathy possibly due to metabolic encephalopathy Close neurological status monitoring in the ICU every hour On precedex drip for vent dyssynchrony. If the patient becomes dyssynchronous overnight we will add propofol drip. will add seroquel 50mg HS and 25mg AM, oxycodone 5mg TID to wean sedation Cardiac: Cardiogenic shock: Improved PRN labetolol pushes to treat hypertensive urgency Respiratory: Acute hypoxemic respiratory failure due to COVID-19 pneumonia Intubated yesterday following which prolonged hypoxia Ventilator setting significantly improved after 2 sessions of dialysis possibly suggesting volume overload On pressor support trials since yesterday morning, episodes of vent asynchrony and desaturations if she fails we will switch her back to volume control mode On dexamethasone for management of COVID-19 pneumonia GI: tube feeds Renal: End-stage renal disease: Had a session of dialysis this morning with good UF Undergoing hemodialysis as per TTS schedule On maintenance hemodialysis as per Nephrology We will closely monitor I's and O's Heme: Chronic anemia, closely monitor H&H, transfuse for hemoglobin less than 7 grams/deciliter Endocrine: Blood sugars under control Sliding scale insulin as needed Infectious disease: Blood cultures remains persistent positive for Pseudomonas, on meropenem. On gentamicin antibiotic lock after each dialysis sessions. Since the repeat cultures are persistently positive despite more than a week of antibiotics possibly we need to consider removing the PermCath Musculoskeletal: Decubitus ulcer prevention protocol Lines: Hemodialysis catheter peripheral lines Prophylaxis: Heparin, pantoprazole Quality Stroke Does the patient have a stroke diagnosis?: No VTE Prior VTE?: No VTE Risk Level:: Medical - moderate - high VTE Device Contraindication: Treatment Not Indicated VTE Drug Contraindication: N/A - Med Ordered
--- NOTE | 2023-11-17 12:32 | PC.RT ---
Pt had periods of apnea on PS/CPAP settings 8/5 21%. RT placed pt back on ACVC+ settings, pt nyasia well, minimal effort over ventilator. MD and RN aware of change.
--- NOTE | 2023-11-17 14:09 | PC.RT ---
Pt placed back on PS/CPAP settings, nyasia well. MD ordered extubation. Extubation performed by RT w/ RN at bedside. Pt had positive cuff leak prior to extubation. Pt nyasia well, no stridor or respiratory distress noted post extubation. Pt on RA.
[2023-11-17 16:46] LABS: Glucose, Whole Blood 286 mg/dL (60-115)
[2023-11-17] MEDS: hydrALAZINE HCl 50 MG TABLET PO (16:48)
[2023-11-17] MEDS: HYDROmorphone HCl 1 MG/ML SYRINGE IVPUSH (20:44)
[2023-11-17 20:57] LABS: Glucose, Whole Blood 181 mg/dL (60-115)
[2023-11-17] MEDS: dexmedeTOMIDidine HCL/NS 400 MCG/100 ML INFUS..BTL 8.52 MCG IVCONT (23:06)
[2023-11-18] VITALS (17 sets, daily range): BP systolic 128–178; BP diastolic 68–92; PULSE 65–83; RESP 12–22; TEMP 35.7–36.6; O2SAT 91–98; BMI 30.6
[2023-11-18] MEDS: Albumin Human 25 % 100 ML IV (01:34)
[2023-11-18 06:18] LABS: VBG Base Excess 1.2 mmol/L; VBG HCO3 24 mmol/L (22-26); VBG pCO2 33 mmHg; VBG pH 7.47 (7.32-7.43); VBG pO2 92 mmHg
[2023-11-18 06:18] LABS: MANUAL DIFF FLAG NO
[2023-11-18 06:20] LABS: Basophils Percent Auto 0.1 % (0-2); Eosinophils Percent Auto 0.3 % (0-4); Hematocrit 24.4 % (37.0-47.0); Hemoglobin 7.9 g/dl (12.0-16.0); Imm Gran Abs Auto 0.07 X10*3/uL (0.00-0.03); Imm Gran Pct Auto 0.9 % (0.0-0.4); Lymphocytes Absolute Auto 0.6 X10*3/uL (1.2-4.9); Lymphocytes Percent Auto 8.3 % (20-40); Mean Corpuscular HGB Conc 32.4 g/dl (31.0-35.0); Mean Corpuscular Hemoglobin 29.7 pg (27.0-33.0); Mean Corpuscular Volume 91.7 fL (80.0-98.0); Mean Platelet Volume 11.9 fL (9.4-12.3); Monocytes Absolute Auto 0.8 X10*3/uL (0.1-1.2); Monocytes Percent Auto 9.8 % (2-11); Neutrophils Absolute Auto 6.1 x10*3/uL (2.0-8.3); Neutrophils Percent Auto 80.6 % (45-73); Platelet Count 88 X10*3/uL (160-400); Red Blood Count 2.66 X10*6/uL (4.20-5.50); White Blood Count 7.6 X10*3/uL (4.8-10.8)
[2023-11-18 06:40] LABS: Alanine Aminotransferase 22 U/L (0-31); Albumin Level 3.7 g/dL (3.5-5.0); Alkaline Phosphatase 115 U/L (39-117); Anion Gap 21 (12-20); Aspartate Amino Transferase 23 U/L (5-31); Blood Urea Nitrogen 85 mg/dL (9-16); Calcium 7.8 mg/dL (8.4-10.2); Carbon Dioxide 22 mmol/L (22-29); Chloride 96 mmol/L (96-108); Creatinine Clr Calc Pharmacy 21.4; Estimated Glomerular Filt Rate 12; Glucose Random 171 mg/dL (60-115); Magnesium 2.4 mg/dL (1.6-2.6); Phosphorus 7.1 mg/dL (2.7-4.5); Sodium 135 mmol/L (135-145); Total Protein 6.7 g/dL (6.5-8.0)
[2023-11-18 06:50] LABS: Bilirubin Total 1.8 mg/dL (0.0-1.0)
[2023-11-18 07:27] LABS: Glucose, Whole Blood 152 mg/dL (60-115)
[2023-11-18 08:12] LABS: Venous Blood Gas Refer to POC result
[2023-11-18] MEDS: Calcium Gluconate/NaCl,Iso-Osm 2 GM/100 ML PLAST..BAG IV (08:53)
[2023-11-18] MEDS: 0.9 % Sodium Chloride Flush 3 ML SYRINGE IVFLUSH ×2 (09:12→23:12)
[2023-11-18] MEDS: dexAMETHasone sod phosphate 4 MG/ML VIAL 6 MG IVPUSH (09:13)
--- NOTE | 2023-11-18 11:45 | PM.CCPN ---
Subjective Subjective Date of Service: 11/18/23 Critical Care Time (minutes): 40 Comment: Extubated yesterday, tolerating liberation from ventilator very well. She is on room air and her respiratory status is stable. She is alert and oriented Her last hemodialysis was yesterday Physical Exam Vital Signs: Vital Signs: Last Vital Signs Temp 97.6 F 11/18/23 09:39 Pulse 70 11/18/23 11:00 Resp 16 11/18/23 11:00 BP 158/83 H 11/18/23 11:00 Pulse Ox 97 11/18/23 11:00 O2 Del Method Room Air 11/18/23 11:00 O2 Flow Rate 50 11/12/23 11:00 FiO2 21 11/17/23 14:00 BMI result Body Mass Index 30.6 General: Not in acute distress, she is ill appearing and tired appearing Nutritional Appearance: well nourished and not weight Eyes: appearance normal, both eyes and all related structures; Alignment and Position: alignment normal and position normal Neck: No lymphadenopathy, no thyromegaly Resp: bilateral air entry equal, occasional added sounds present Cardio: Regular rate, regular rhythm; Heart sounds: S1 normal heart sound present and S2 normal heart sound present GI: soft, nontender, no guarding, no hepatosplenomegaly : bladder normal to inspection, bladder normal to palpation, no renal angle tenderness Skin: no rashes or lesions noted and elasticity normal, amputation stump wound has scab on it Neuro: oriented to person, oriented to place, oriented to time and moves all extremities, Objective Data Labs 11/18/23 06:06 11/18/23 06:06 Labs: Laboratory Results - last 24 hr 11/17/23 11/17/23 11/18/23 16:41 20:45 06:06 WBC 7.6 RBC 2.66 L Hgb 7.9 L Hct 24.4 L MCV 91.7 MCH 29.7 MCHC 32.4 RDW 19.0 H Plt Count 88 L MPV 11.9 Immature Gran % (Auto) 0.9 H Neut % (Auto) 80.6 H Lymph % (Auto) 8.3 L [place] % (Auto) 9.8 Eos % (Auto) 0.3 Baso % (Auto) 0.1 Lymph # (Auto) 0.6 L [place] # (Auto) 0.8 Eos # (Auto) 0.0 Baso # (Auto) 0.0 Abs Immat Gran (auto) 0.07 H Absolute Neuts (auto) 6.1 Absolute Nucleated RBC 0.000 Nucleated RBC % (auto) 0.0 VBG pH VBG pCO2 VBG pO2 VBG HCO3 VBG O2 Saturation VBG Base Excess Sodium 135 Potassium 4.0 Chloride 96 Carbon Dioxide 22 Anion Gap 21 H BUN 85 H Creatinine 4.14 H* Estim Creat Clear Calc 21.4 Estimated GFR 12 POC Glucose 286 H 181 H Random Glucose 171 H Calcium 7.8 L Phosphorus 7.1 H Magnesium 2.4 Total Bilirubin 1.8 H AST 23 ALT 22 Alkaline Phosphatase 115 Total Protein 6.7 Albumin 3.7 11/18/23 11/18/23 06:08 07:21 WBC RBC Hgb Hct MCV MCH MCHC RDW Plt Count MPV Immature Gran % (Auto) Neut % (Auto) Lymph % (Auto) [place] % (Auto) Eos % (Auto) Baso % (Auto) Lymph # (Auto) [place] # (Auto) Eos # (Auto) Baso # (Auto) Abs Immat Gran (auto) Absolute Neuts (auto) Absolute Nucleated RBC Nucleated RBC % (auto) VBG pH 7.47 H VBG pCO2 33 VBG pO2 92 VBG HCO3 24 VBG O2 Saturation 99.0 VBG Base Excess 1.2 Sodium Potassium Chloride Carbon Dioxide Anion Gap BUN Creatinine Estim Creat Clear Calc Estimated GFR POC Glucose 152 H Random Glucose Calcium Phosphorus Magnesium Total Bilirubin AST ALT Alkaline Phosphatase Total Protein Albumin Microbiology Microbiology Results: Microbiology 11/15/23 11:14 Blood - Central Line Blood Culture - Preliminary Gram negative laurie 11/15/23 11:09 Blood - Central Line Blood Culture - Final Pseudomonas aeruginosa 11/15/23 11:38 Trachea Gram Stain - Final 11/15/23 11:38 Trachea Sputum Culture - Final Riddhi albicans 11/13/23 08:32 Blood - Subclavian Blood Culture - Final Pseudomonas aeruginosa 11/13/23 08:32 Blood - Subclavian Blood Culture - Final Pseudomonas aeruginosa 11/12/23 18:12 Leg - Right Gram Stain - Final 11/12/23 18:12 Leg - Right Routine Culture - Final Pseudomonas aeruginosa Escherichia coli Staphylococcus aureus 11/11/23 14:29 Urine clean catch - Clean Catch Midstream Urine Culture - Final No growth. 11/10/23 15:14 Blood - Venous Blood Culture - Final Pseudomonas aeruginosa 11/10/23 15:14 Blood - Venous Blood Culture - Final Pseudomonas aeruginosa Progress Note: A&P Assessment and plan (1) Acute hypoxemic respiratory failure: Status: Acute (2) COVID-19: Status: Acute (3) Acute on chronic renal failure: Status: Acute (4) Noncompliance: Status: Acute (5) End stage chronic kidney disease: Status: Acute (6) Fall: Status: Acute (7) Chronic ulcer of right foot due to diabetes mellitus: Status: Acute Plan Neuro: Acute encephalopathy has a resolved, mentation has improved. She is alert and oriented Cardiac: Cardiogenic shock: Improved PRN labetolol pushes to treat hypertensive urgency Home antihypertensives restarted Respiratory: Acute hypoxemic respiratory failure due to COVID-19 pneumonia Extubated yesterday, tolerating liberation from ventilator very well. She is stable on room air Continue dexamethasone 6 mg daily for a total of 10 days for the management of COVID-19 pneumonia GI: Oral feeds Renal: End-stage renal disease: Undergoing hemodialysis as per TTS schedule, last dialysis session was yesterday On maintenance hemodialysis as per Nephrology Heme: Chronic anemia, closely monitor H&H, transfuse for hemoglobin less than 7 grams/deciliter Endocrine: Blood sugars under control Sliding scale insulin as needed Infectious disease: Blood cultures remains persistent positive for Pseudomonas, on meropenem. On gentamicin antibiotic lock after each dialysis sessions. Since the repeat cultures are persistently positive despite more than a week of antibiotics possibly we need to consider removing the PermCath. Needs to be coordinated with Nephrology Musculoskeletal: Decubitus ulcer prevention protocol Lines: Hemodialysis catheter peripheral lines Prophylaxis: Heparin, pantoprazole We will transfer her to floor Quality Stroke Does the patient have a stroke diagnosis?: No VTE Prior VTE?: No VTE Risk Level:: Medical - moderate - high VTE Device Contraindication: Treatment Not Indicated VTE Drug Contraindication: N/A - Med Ordered
[2023-11-18 12:36] LABS: Glucose, Whole Blood 175 mg/dL (60-115)
--- NOTE | 2023-11-18 14:17 | P.EN_ITS ---
Event Note Date of Service: 11/18/23 Event Note: Patient was admitted initially to medical floor on 11/09 after an episode of fall and missing hemodialysis, after receiving hemodialysis patient became hypotensive, she received 2 bags of albumin without improvement in her blood pressure she receive IV daptomycin, lactic acid was 6 she was noted to be tachypneic hypoxic and was transferred to ICU for persistent hypotension, hypoxia, she was diagnosed to have COVID-19 infection, sepsis, treated with pressors , broad-spectrum antibiotics, due to persistent hypoxia patient was intubated and was subsequently extubated on 11/16, her blood cultures grew Pseudomonas and remains positive, currently on meropenem and on gentamicin antibiotic lock after each dialysis session. At present patient awake alert complaining of generalized itch and pain Blood pressure elevated since declined a.m. antihypertensive medications Persistent Pseudomonas bacteremia on IV meropenem and on gentamicin antibiotic lock after each dialysis session Repeat blood cultures Sunday 11/19 from [facility] and if remained positive will need to removed [facility] Acute toxic metabolic encephalopathy resolved Cardiogenic shock resolved continue Coreg Acute hypoxic respiratory failure due to COVID-19 pneumonia, extubated yesterday stable oxygenation not on room air, continue dexamethasone to finish a total 10 day course of antibiotic day 6 today End-stage renal disease continue hemodialysis as per Nephrology Chronic anemia low stable hematocrit. Heparin subQ for DVT prophylaxis Full code Time Spent With Patient Time: Total time managing care of this patient today ____ minutes.
[2023-11-18] MEDS: ondansetron HCL 4 MG/2 ML VIAL IVPUSH ×2 (15:37→20:28)
[2023-11-18 16:21] LABS: Glucose, Whole Blood 247 mg/dL (60-115)
[2023-11-18] MEDS: Insulin Lispro 100 UNIT/ML 3 ML VIAL SUBCUT ×2 (17:27→23:11)
[2023-11-18] MEDS: Chlorhexidine Gluc Oral Rinse 15 ML MOUTHWASH BUCCAL (20:06)
[2023-11-18 21:43] LABS: Glucose, Whole Blood 168 mg/dL (60-115)
[2023-11-19] VITALS (7 sets, daily range): BP systolic 108–157; BP diastolic 58–77; PULSE 80–83; RESP 16–20; TEMP 36.1–37.1; O2SAT 97–100
[2023-11-19] MEDS: Metoclopramide HCl 10 MG/2 ML VIAL IVPUSH (00:23)
[2023-11-19] MEDS: diphenhydrAMINE HCl 12.5 MG/5 ML LIQUID 25 MG PO (01:05)
[2023-11-19 07:35] LABS: Glucose, Whole Blood 106 mg/dL (60-115)
--- NOTE | 2023-11-19 10:23 | MHC.CM.PN ---
PER MD ROUNDS, PT WILL BE HERE AT LEAST UNTIL THE END OF THE WEEK HER HD CATH WILL NEED TO BE REMOVED AND EVENTUALLY REPLACED. DCP REMAINS HOME WITH RESUMPTION OF VACCINE [facility] AND OP HD
[2023-11-19] MEDS: 0.9 % Sodium Chloride Flush 3 ML SYRINGE IVFLUSH ×3 (11:04→23:54)
[2023-11-19] MEDS: Chlorhexidine Gluc Oral Rinse 15 ML MOUTHWASH BUCCAL ×3 (11:04→20:46)
[2023-11-19] MEDS: dexAMETHasone sod phosphate 4 MG/ML VIAL 6 MG IVPUSH (11:05)
[2023-11-19] MEDS: carvediloL 12.5 MG TABLET PO (11:05)
[2023-11-19] MEDS: hydrALAZINE HCl 50 MG TABLET PO (11:05)
--- NOTE | 2023-11-19 11:17 | MHC.CLN ---
F/U PT EXTUBATED YESTERDAY TRANSFERRED TO MEDICAL FLOOR IN ICU, PT RECEIVED NEPRO AT MAX GOAL RATE 25ML/HR PROVIDES 1080KCALS, 49G PROTEIN, 785ML FREE WATER FROM FORMULA CONTINUE TO MONITOR TOLERANCE AND LYTES DIET ADVANCED TO 1800DM PT WITH INCREASED NUTRITION RISK R/T PRESSURE INJURY MONITOR PO INTAKE CLOSELY FOLLOWING WITH TEAM
[2023-11-19] MEDS: HYDROmorphone HCl 0.5 MG/0.5 ML SYRINGE 0.25 MG IVPUSH ×2 (11:18→18:26)
[2023-11-19 12:26] LABS: Glucose, Whole Blood 120 mg/dL (60-115)
--- NOTE | 2023-11-19 14:42 | HO.PM.IMPN ---
Subjective Subjective Date of Service: 11/19/23 Interval History: c/o foot pain no dyspnea no redness around HD catheter but has pain at the site Physical Exam Vital Signs: Vital Signs: Last Vital Signs Temp 97 F 11/19/23 12:00 Pulse 81 11/19/23 12:00 Resp 16 11/19/23 12:00 BP 155/76 H 11/19/23 12:00 Pulse Ox 100 11/19/23 12:00 O2 Del Method Room Air 11/19/23 12:00 O2 Flow Rate 1 11/19/23 04:00 FiO2 21 11/17/23 14:00 BMI result Body Mass Index 30.6 Gen: chronically ill, blind HEENT: sclera anicteric, moist mucus membranes Neck: supple Lungs: clear to auscultation bilaterally Heart: regular rate and rhythm, no murmurs Abd: soft, non-tender, non-distended Ext: no edema, R TMA, L TMA Skin: warm/well-perfused, dry ulcers on both TMA stumps Neuro: alert and oriented x3, no focal findings Psych: appropriate affect Objective Data Active Medications Acetaminophen (Acetaminophen 325 Mg Tablet) 975 mg PO Q6H PRN PRN Reason: Pain, Mild (Pain Scale 1-3), fever or headache Last Admin: 11/15/23 16:32 Dose: 975 mg Documented By: KESHAV Albuterol Sulfate (Albuterol Sulfate (0.083%) 2.5 Mg/3 Ml Vial.Neb) 2.5 mg INHALE Q3H PRN PRN Reason: Wheezing Carvedilol (Carvedilol 12.5 Mg Tablet) 12.5 mg PO BID [facility]; Protocol Last Admin: 11/19/23 11:05 Dose: 12.5 mg Documented By: MALLIKA Chlorhexidine Gluconate (Chlorhexidine Gluc Oral Rinse 15 Ml Mouthwash) 15 ml BUCCAL TID [facility] Last Admin: 11/19/23 11:04 Dose: 15 ml Documented By: MALLIKA Dexamethasone Sodium Phosphate (Dexamethasone Sod Phosphate 4 Mg/Ml Vial) 6 mg IVPUSH DAILY [facility] Last Admin: 11/19/23 11:05 Dose: 6 mg Documented By: MALLIKA Diphenhydramine HCl (Diphenhydramine Hcl 25 Mg Capsule) 25 mg PO Q8H PRN PRN Reason: Itching Glucose (Glucose Gel 15 Gm Gel..Gram.) 15 gm PO Q15M PRN; Protocol PRN Reason: per Hypoglycemia Standing Ord. Heparin Sodium (Porcine) (Heparin Sodium,Porcine 5,000 Unit/Ml Vial) 5,000 unit SUBCUT Q12H [facility] Last Admin: 11/19/23 11:06 Dose: Not Given Documented By: MALLIKA Non-Admin Reason: Patient Refused Hydralazine HCl (Hydralazine Hcl 50 Mg Tablet) 50 mg PO Q8H [facility]; Protocol Last Admin: 11/19/23 11:05 Dose: 50 mg Documented By: MALLIKA Hydromorphone HCl (Hydromorphone Hcl 0.5 Mg/0.5 Ml Syringe) 0.25 mg IVPUSH Q6H PRN; Protocol PRN Reason: Pain, Severe (Pain Scale 7-10) Last Admin: 11/19/23 11:18 Dose: 0.25 mg Documented By: MALLIKA Dextrose (D10) 250 mls @ 750 mls/hr IV Q15M PRN PRN Reason: per Hypoglycemia Standing Ord. Meropenem 500 mg/ Sodium (Chloride) 50 mls @ 100 mls/hr IV Q12H [facility] Last Infusion: 11/19/23 12:07 Dose: Infused Documented By: MALLIKA Gentamicin Sulfate 25 mg/ (Sodium Chloride) 5 mls @ 0 mls/hr INTRACATH TuThSa@1100 [facility] Last Admin: 11/17/23 11:44 Dose: 999 mls/hr Documented By: VIDAL Comments: Administered by dialysis nurse Insulin Human Lispro (Insulin Lispro 100 Unit/Ml 3 Ml Vial) 0 unit SUBCUT QIDACHS [facility]; Protocol Last Admin: 11/19/23 13:22 Dose: Not Given Documented By: MALLIKA Non-Admin Reason: No Insulin Coverage Labetalol HCl (Labetalol Hcl 100 Mg/20 Ml Vial) 20 mg IVPUSH Q10M PRN PRN Reason: SBP > 160 Last Admin: 11/16/23 17:50 Dose: 20 mg Documented By: VIDAL Ondansetron HCl (Ondansetron Hcl 4 Mg/2 Ml Vial) 4 mg IVPUSH Q4H PRN PRN Reason: Nausea and Vomiting Last Admin: 11/18/23 20:28 Dose: 4 mg Documented By: BRENDAN Oxycodone HCl (Oxycodone Hcl Immed Release 5 Mg Tablet) 10 mg PO Q6H PRN PRN Reason: Pain, Moderate(Pain Scale 4-6) Polyethylene Glycol (Polyethylene Glycol 3350 17 Gm Powd.Pack) 17 gm PO DAILY [facility] Last Admin: 11/19/23 11:06 Dose: Not Given Documented By: MALLIKA Non-Admin Reason: Patient Refused Sodium Chloride (0.9 % Sodium Chloride Flush 3 Ml Syringe) 3 ml IVFLUSH QSHIFT [facility] Last Admin: 11/19/23 11:04 Dose: 3 ml Documented By: MALLIKA Labs 11/18/23 06:06 11/18/23 06:06 Labs: Laboratory Results - last 24 hr 11/18/23 11/18/23 11/19/23 16:17 21:36 07:30 POC Glucose 247 H 168 H 106 11/19/23 12:20 POC Glucose 120 H Microbiology Microbiology Results: Microbiology 11/15/23 11:14 Blood Culture - Final Blood - Central Line Pseudomonas aeruginosa Assessment and Plan (1) CLABSI (central line-associated bloodstream infection): Status: Acute Plan d10 33yo F with ESRD on HD TuThSa [though refuses to go Sa], repeated hospitalizations due to nonadherence with HD, DM retinopathy with blindness, PVD s/p bilateral TMA, poorly controlled HTN due to nonadherence, chronic hypoxic respiratory failure, HFrEF, mood disorder, chronic pain initially admitted to hospitalist service after falling and missing HD but then became hypotensive without response to colloid resuscitation and hypoxia transferred to ICU for shock [determined due to sepsis and cardiogenic] and respiratory failure found to have Covid-19 infection and persistent Pseudomonas bacteremia intubated 11/11-11/16 weaned off pressors and ventilator, stepped down to telemetry 11/17 Pseudomonas CLABSI - On IV meropenem and gentamicin antibiotic lock. Discussed with ID, will treat definitively with HD catheter removal and then repeat BCx 11/19 or 11/20 and once clear, replace tunnel HD catheter. Discussed with IR + Nephrology. Once BCx clear, plan 14d of cefepime 2g IV p HD chronic foot wounds - per Wound Care: Elevate heels off of bed surface with heel protector boots. Cleanse with Betadine. Cover wound beds with dry ABD pad and gauze wrap. Change daily. acute/chronic respiratory failure due to Covid-19 pneumonia - continue dexametahsone 11/11-11/22/23; wean O2 as tolerated acute toxic-metabolic encephalopathy - resolved cardiogenic shock - resolved; continue carvedilol + hydralazine for HTN ESRD - HD TuThSa as per Nephrology but note pt has historically not gone to HD on Saturdays as outpt anemia of ESRD - monitor H+H DM2 - muna-dose lispro VTE ppx - UFH dispo - PT eval In my clinical judgment, the patient requires continued inpatient hospitalization for the following reasons: IV ABX Total time managing care of this patient today: 55 minutes. Quality Stroke Does the patient have a stroke diagnosis?: No VTE Prior VTE?: No VTE Risk Level:: Medical - moderate - high VTE Device Contraindication: Treatment Not Indicated VTE Drug Contraindication: N/A - Med Ordered
--- NOTE | 2023-11-19 14:47 | MHC.SL.SWA ---
Speech Pathologist Impression: Mild dysphagia secondary to weakness and recent extubation Risk of Aspiration Due to: Lethargy Hx of Recent Extubation Dysphasia Diet Status: Continue on Regular diet with thin liquids, pills whole w/liquid or puree as preferred by patient/RN. Anticipate pending d/c from speech therapy as pt status improves Liquid Consistency and Strategies for Safe Swallow: Liquid Intake Recommendation: Thin Liquid Intake Strategies: Small Sips Solid Food Consistency: Dietary Recommendations: Regular Additional Modifications to Solid Foods: Condiments/sauces to moisten solids Oral Medication Intake: Whole with Liquid Please contact the pharmacy regarding appropriate crushable or liquid drug formulations that are available whenever modified delivery is recommended. Compensatory Strategies and Precautions to be Taken for Safe Swallow: Sitting Upright (90 deg) Liquids from Straw Alternate Liquids/Solids Rate of Ingestion Change Supervision While Eating and Drinking for Safe Swallow: Intermittent Supervision Foods to Avoid: Swallowing Recommended Treatments: Compens. Strategy Educat. Recommendation for Speech: Frequency/Duration: Daily M-F Short term inpatient followup Dietitian Teacher Clinican/Clinical Fellow: No Supervisory Statement: I have reviewed and agree with the student/clinical fellow's documentation: N/A Speech Language Pathologist: Varsha Coronado M.S. [facility]
--- NOTE | 2023-11-19 14:55 | P.PNID_ITS ---
Subjective Subjective Date of Service: 11/19/23 Critical Care Time (minutes): 15 Comment: She feels better but feels pain at site of catheter in chest. There is no fever or chills. Objective Data Labs 11/18/23 06:06 11/18/23 06:06 Labs: Laboratory Results - last 24 hr 11/18/23 11/18/23 11/19/23 16:17 21:36 07:30 POC Glucose 247 H 168 H 106 11/19/23 12:20 POC Glucose 120 H Microbiology Microbiology Results: Microbiology 11/15/23 11:14 Blood - Central Line Blood Culture - Final Pseudomonas aeruginosa 11/15/23 11:09 Blood - Central Line Blood Culture - Final Pseudomonas aeruginosa 11/15/23 11:38 Trachea Gram Stain - Final 11/15/23 11:38 Trachea Sputum Culture - Final Riddhi albicans 11/13/23 08:32 Blood - Subclavian Blood Culture - Final Pseudomonas aeruginosa 11/13/23 08:32 Blood - Subclavian Blood Culture - Final Pseudomonas aeruginosa 11/12/23 18:12 Leg - Right Gram Stain - Final 11/12/23 18:12 Leg - Right Routine Culture - Final Pseudomonas aeruginosa Escherichia coli Staphylococcus aureus 11/11/23 14:29 Urine clean catch - Clean Catch Midstream Urine Culture - Final No growth. 11/10/23 15:14 Blood - Venous Blood Culture - Final Pseudomonas aeruginosa 11/10/23 15:14 Blood - Venous Blood Culture - Final Pseudomonas aeruginosa Physical Exam 2 Vital Signs: Vital Signs: Last Vital Signs Temp 97 F 11/19/23 12:00 Pulse 81 11/19/23 12:00 Resp 16 11/19/23 12:00 BP 155/76 H 11/19/23 12:00 Pulse Ox 100 11/19/23 12:00 O2 Del Method Room Air 11/19/23 12:00 O2 Flow Rate 1 11/19/23 04:00 FiO2 21 11/17/23 14:00 BMI result Body Mass Index 30.6 Const: General: cooperative Orientation/consciousness: patient oriented x3 HEENT: Head: Yes normal to inspection Mouth: Normal oral and palatal mucosa present Eyes: General: appearance normal, both eyes and all related structures P upils: Equal, round and reactive pupils present Resp: Effort & Inspection: normal respiratory effort Cardio: Rate: regular rate Rhythm: regular rhythm GI: Palpation (GI): Soft to palpation and nontender : General: Yes no CVA tenderness Back/Spine/Pelvis: Back: no CVA tenderness Skin: General skin exam: no rashes or lesions noted Neuro: General: patient oriented x3 Cranial nerves: Yes CN's II-XII intact bilaterally and Yes Equal, round and reactive pupils present Extrem: General: Yes normal to inspection Psych: Appearance: grossly normal Assessment and Plan Assessment and plan (1) Acute hypoxemic respiratory failure: Status: Acute Plan Pseudomonas persistent bacteremia,11/09,11/12 She has discomfort chest wall. Would give IV Cefepime 2g after each HD. Add Cipro to susceptibilities in case not tolerated. Would pull catheter tomorrow. Blood culture in two days. Would dialyze Sunday 14 d total antibiotics from first negative culture. Time Spent With Patient Time: Total time managing care of this patient today ____ minutes.
[2023-11-19 17:05] LABS: Glucose, Whole Blood 308 mg/dL (60-115)
--- NOTE | 2023-11-19 17:31 | HO.WOUND ---
Wound Consult: Follow up 33yr old female? admitted to [facility] [place] on 11/10/23 - See progress notes and H&P for detailed history.? This patient is known to this advertising writer for frequent readmissions see chart for history. Wound consult follow up for Bilateral lower foot wounds and sacral wound. Patient is out of ICU and remains on Med Tele unit. 10/18/23 Picture from previous admission 11/13/23 11/19/23 Left TMA site - Improving Dehiscence of surgical site - no active drainage noted - dry scabbed wound bed noted - Iodosorb to keep dry and stable and allow for antimicrobial properties and break through biofilm. 11/13/23 11/19/23 Right Plantar Diabetic Wound - dry stable scabbed wound bed - Iodosorb to keep dry and stable and allow for antimicrobial properties and break through biofilm. 11/13/23 11/19/23 Right Lateral Diabetic Wound - Diabetic Wound - dry stable scabbed wound bed - Iodosorb to keep dry and stable and allow for antimicrobial properties and break through biofilm. 10/18/23 Photo from last admission 11/13/23 11/19/23 Right Dorsal Diabetic Wound - dry yellow scab - Iodosorb to keep dry and stable and allow for antimicrobial properties and break through biofilm. 10/18/23 Last Admission 11/13/23 11/19/23 Left Heel - Diabetic Wound - dry wound bed - necrotic tissue noted - no odor no drainage noted - no fluctuance and no induraton noted - Iodosorb to keep dry and stable and allow for antimicrobial properties and break through biofilm. 10/18/23 Previous admission 11/13/23 11/19/23 Left Plantar Diabetic Wound - dry dark scab wound bed callused edges - Iodosorb to keep dry and stable and allow for antimicrobial properties and break through biofilm. Etiology: ??Diabetic Wounds with various measurements and in various stages of healing Drainage / Odor: no odor noted - no actue infection noted to any wound to the feet Goals of Treatment: Iodosorb to keep dry and stable and allow for antimicrobial properties and break through biofilm. Sacrococcygeal 11/15/23 Etiology: ?Unknown Etiology: Clinical Manifestations of COVID 19 vs thrombocytopenia Wound Bed: In evolution - partial thickness tissue loss with pink viable wound bed Edges: ? irregular and not consistent with pressure given the edges and feathering of dark pigmentation and areas of resolution Pao wound: ? irregular dark pigmentation patterns and observable erythema Goals of Treatment: ? Off Load Pressure and Triad to protect from friction and moisture and allow for moist wound healing. No new topical recommendations needed at this time. Recommendations: 1. Turn and Reposition every 2 hours and as needed for patient comfort.? Use pillows or wedges to support off loading positions. 2. Off Load all bony prominences with use of pillows and heel boots if needed.? Apply Preventative foams where needed. ? 3. Monitor for incontinence and moisture control, use barrier creams when needed for prevention and treatment. 4. Provide adequate and supplemental nutrition.? 5. Order or Continue low air loss mattress. 6. When applicable maintain blood glucose levels per Providers order. 7. Bilateral Foot wounds - Elevate heels off of bed surface with heel protector boots. Cleanse with NS, moist gauze. Cover wound beds with Iodosorb (only available from wound nurse) dry ABD pad and gauze wrap. Change every 3 days. . 8. Sacrococcygeal area - Off Load Pressure - Cleanse with PH balance spray or wipes, pat dry. ?Apply thin layer of Triad to wound bed - only pat and dab no scrub and rub when soiling occurs. Reapply thin layer PRN after each episode of incontinence. Re-consult wound care Nurse for wound deterioration or wound changes.
[2023-11-19] MEDS: Insulin Lispro 100 UNIT/ML 3 ML VIAL SUBCUT ×2 (18:20→22:35)
[2023-11-19 20:58] LABS: Glucose, Whole Blood 232 mg/dL (60-115)
[2023-11-20] VITALS: BP 122/60; PULSE 77; RESP 20; TEMP 36.1; O2SAT 100
[2023-11-20] MEDS: HYDROmorphone HCl 0.5 MG/0.5 ML SYRINGE 0.25 MG IVPUSH ×3 (02:34→19:46)
[2023-11-20] MEDS: ondansetron HCL 4 MG/2 ML VIAL IVPUSH (02:46)
[2023-11-20 03:58] VITALS: BP 157/75; PULSE 79; RESP 20; TEMP 36.3; O2SAT 98
--- NOTE | 2023-11-20 06:27 | P.PNNP_ITS ---
Subjective Subjective Date of Service: 11/19/23 Interval history: Seen and examinedm events noted Appreciate ID inout and agree Pcath needs to be removed for persistnet Pseusdomonas bactermia Physical Exam 2 Vital Signs: Vital Signs: Last Vital Signs Temp 97.3 F 11/20/23 03:58 Pulse 79 11/20/23 03:58 Resp 20 11/20/23 03:58 BP 157/75 H 11/20/23 03:58 Pulse Ox 98 11/20/23 03:58 O2 Del Method Nasal Cannula 11/20/23 03:58 O2 Flow Rate 2 11/20/23 03:58 FiO2 21 11/17/23 14:00 BMI result Body Mass Index 30.6 Const: General: cooperative HEENT: Head: Yes normal to inspection Face and sinus: Yes normal facial exam Mouth: Normal oral and palatal mucosa present Teeth and gingiva: d entition normal Eyes: General: appearance normal, both eyes and all related structures P upils: Equal, round and reactive pupils present Resp: Other: on ventilator Cardio: Rate: regular rate Rhythm: regular rhythm GI: Palpation (GI): Soft to palpation and nontender : General: Yes no CVA tenderness Back/Spine/Pelvis: Back: no CVA tenderness Skin: General skin exam: no rashes or lesions noted Neuro: General: moves all extremities Cranial nerves: Yes Equal, round and reactive pupils present Extrem: General: Yes normal to inspection Psych: Appearance: grossly normal Objective Data Labs 11/18/23 06:06 11/18/23 06:06 Labs: Laboratory Results - last 24 hr 11/19/23 11/19/23 11/19/23 07:30 12:20 17:02 POC Glucose 106 120 H 308 H 11/19/23 20:40 POC Glucose 232 H Microbiology Microbiology Results: Microbiology 11/13/23 08:32 Blood - Subclavian Blood Culture - Final Pseudomonas aeruginosa 11/15/23 11:14 Blood - Central Line Blood Culture - Final Pseudomonas aeruginosa 11/15/23 11:09 Blood - Central Line Blood Culture - Final Pseudomonas aeruginosa 11/15/23 11:38 Trachea Gram Stain - Final 11/15/23 11:38 Trachea Sputum Culture - Final Riddhi albicans 11/13/23 08:32 Blood - Subclavian Blood Culture - Final Pseudomonas aeruginosa 11/12/23 18:12 Leg - Right Gram Stain - Final 11/12/23 18:12 Leg - Right Routine Culture - Final Pseudomonas aeruginosa Escherichia coli Staphylococcus aureus 11/11/23 14:29 Urine clean catch - Clean Catch Midstream Urine Culture - Final No growth. 11/10/23 15:14 Blood - Venous Blood Culture - Final Pseudomonas aeruginosa 11/10/23 15:14 Blood - Venous Blood Culture - Final Pseudomonas aeruginosa Procedures Date of Service Date of Service: 11/20/23 Assessment & Plan Assessment and plan (1) End stage chronic kidney disease: Status: Acute Plan 1. ESRD: Normally TTS schedule h/o very poorly complaint w HD treatments 2. Hemoaccess: Pcath 3. Resp failure: improved, has covid now playing a role 4. GNR bacteremia: perisitent Pseuddomonas bacteremia 5. Nephrogenic anemia REC: Pcath to be removed 11/19 after HD and if remains neg Bld Cult x 48 hrs then replace new Pcath on Sunday and HD to resume with new Pcath Time Spent With Patient Time: Total time managing care of this patient today ____ minutes. Progress Note: Quality Stroke Does the patient have a stroke diagnosis?: No
[2023-11-20 07:36] LABS: Glucose, Whole Blood 161 mg/dL (60-115)
[2023-11-20 08:15] LABS: Venous Blood Gas Refer to POC result
[2023-11-20 08:15] LABS: VBG Base Excess 3.5 mmol/L; VBG HCO3 26 mmol/L (22-26); VBG pCO2 31 mmHg; VBG pH 7.52 (7.32-7.43); VBG pO2 61 mmHg
[2023-11-20 08:19] LABS: Hematocrit 24.7 % (37.0-47.0); Hemoglobin 8.4 g/dl (12.0-16.0); Mean Corpuscular Hemoglobin 29.3 pg (27.0-33.0); Mean Corpuscular Volume 86.1 fL (80.0-98.0); Mean Platelet Volume 12.1 fL (9.4-12.3); Platelet Count 170 X10*3/uL (160-400); Red Blood Count 2.87 X10*6/uL (4.20-5.50); Red Cell Distribution Width 18.3 % (11.0-16.0)
[2023-11-20 08:20] LABS: White Blood Count 11.3 X10*3/uL (4.8-10.8)
[2023-11-20 08:28] LABS: Alanine Aminotransferase 20 U/L (0-31); Albumin Level 3.5 g/dL (3.5-5.0); Alkaline Phosphatase 133 U/L (39-117); Anion Gap 17 (12-20); Aspartate Amino Transferase 25 U/L (5-31); Bilirubin Total 1.4 mg/dL (0.0-1.0); Blood Urea Nitrogen 75 mg/dL (9-16); Calcium 7.6 mg/dL (8.4-10.2); Carbon Dioxide 24 mmol/L (22-29); Chloride 97 mmol/L (96-108); Creatinine Clr Calc Pharmacy 24.7; Estimated Glomerular Filt Rate 15; Glucose Random 153 mg/dL (60-115); Magnesium 2.2 mg/dL (1.6-2.6); Phosphorus 4.7 mg/dL (2.7-4.5); Sodium 135 mmol/L (135-145); Total Protein 6.5 g/dL (6.5-8.0)
[2023-11-20 10:16] VITALS: BP 144/64; PULSE 93; RESP 18; TEMP 36.6; O2SAT 98
[2023-11-20 10:57] LABS: Glucose, Whole Blood 233 mg/dL (60-115)
[2023-11-20] MEDS: dexAMETHasone sod phosphate 4 MG/ML VIAL 6 MG IVPUSH (11:05)
[2023-11-20] MEDS: 0.9 % Sodium Chloride Flush 3 ML SYRINGE IVFLUSH ×3 (11:07→19:47)
--- NOTE | 2023-11-20 12:33 | HO.PM.IMPN ---
Subjective Subjective Date of Service: 11/20/23 Interval History: in HD this AM no fever no cough or dyspnea Review of Systems Review of Systems: Yes all other systems are reviewed and are negative Physical Exam Vital Signs: Vital Signs: Last Vital Signs Temp 97.8 F 11/20/23 10:16 Pulse 93 11/20/23 10:16 Resp 18 11/20/23 10:16 BP 144/64 H 11/20/23 10:16 Pulse Ox 98 11/20/23 10:16 O2 Del Method Nasal Cannula 11/20/23 10:16 O2 Flow Rate 2 11/20/23 10:16 FiO2 21 11/17/23 14:00 BMI result Body Mass Index 30.6 Gen: chronically ill, blind HEENT: sclera anicteric, moist mucus membranes Neck: supple Lungs: clear to auscultation bilaterally Heart: regular rate and rhythm, no murmurs Abd: soft, non-tender, non-distended Ext: no edema, R TMA, L TMA Skin: warm/well-perfused, dry ulcers on both TMA stumps Neuro: alert and oriented x3, no focal findings Psych: appropriate affect Objective Data Active Medications Acetaminophen (Acetaminophen 325 Mg Tablet) 975 mg PO Q6H PRN PRN Reason: Pain, Mild (Pain Scale 1-3), fever or headache Last Admin: 11/15/23 16:32 Dose: 975 mg Documented By: KESHAV Albuterol Sulfate (Albuterol Sulfate (0.083%) 2.5 Mg/3 Ml Vial.Neb) 2.5 mg INHALE Q3H PRN PRN Reason: Wheezing Carvedilol (Carvedilol 12.5 Mg Tablet) 12.5 mg PO BID [facility]; Protocol Last Admin: 11/20/23 11:15 Dose: Not Given Documented By: ANASTASIIA Non-Admin Reason: Patient Refused Chlorhexidine Gluconate (Chlorhexidine Gluc Oral Rinse 15 Ml Mouthwash) 15 ml BUCCAL TID [facility] Last Admin: 11/20/23 11:16 Dose: Not Given Documented By: ANASTASIIA Non-Admin Reason: Patient Refused Dexamethasone Sodium Phosphate (Dexamethasone Sod Phosphate 4 Mg/Ml Vial) 6 mg IVPUSH DAILY [facility] Last Admin: 11/20/23 11:05 Dose: 6 mg Documented By: ANASTASIIA Diphenhydramine HCl (Diphenhydramine Hcl 25 Mg Capsule) 25 mg PO Q8H PRN PRN Reason: Itching Glucose (Glucose Gel 15 Gm Gel..Gram.) 15 gm PO Q15M PRN; Protocol PRN Reason: per Hypoglycemia Standing Ord. Heparin Sodium (Porcine) (Heparin Sodium,Porcine 5,000 Unit/Ml Vial) 5,000 unit SUBCUT Q12H [facility] Last Admin: 11/20/23 11:16 Dose: Not Given Documented By: ANASTASIIA Non-Admin Reason: Patient Refused Hydralazine HCl (Hydralazine Hcl 50 Mg Tablet) 50 mg PO Q8H [facility]; Protocol Last Admin: 11/20/23 11:16 Dose: Not Given Documented By: ANASTASIIA Non-Admin Reason: Patient Refused Hydromorphone HCl (Hydromorphone Hcl 0.5 Mg/0.5 Ml Syringe) 0.25 mg IVPUSH Q6H PRN; Protocol PRN Reason: Pain, Severe (Pain Scale 7-10) Last Admin: 11/20/23 11:05 Dose: 0.25 mg Documented By: ANASTASIIA Dextrose (D10) 250 mls @ 750 mls/hr IV Q15M PRN PRN Reason: per Hypoglycemia Standing Ord. Meropenem 500 mg/ Sodium (Chloride) 50 mls @ 100 mls/hr IV Q12H [facility] Last Infusion: 11/20/23 12:15 Dose: Infused Documented By: ANASTASIIA Insulin Human Lispro (Insulin Lispro 100 Unit/Ml 3 Ml Vial) 0 unit SUBCUT QIDACHS [facility]; Protocol Last Admin: 11/20/23 11:16 Dose: Not Given Documented By: ANASTASIIA Non-Admin Reason: Patient Refused Labetalol HCl (Labetalol Hcl 100 Mg/20 Ml Vial) 20 mg IVPUSH Q10M PRN PRN Reason: SBP > 160 Last Admin: 11/16/23 17:50 Dose: 20 mg Documented By: VIDAL Ondansetron HCl (Ondansetron Hcl 4 Mg/2 Ml Vial) 4 mg IVPUSH Q4H PRN PRN Reason: Nausea and Vomiting Last Admin: 11/20/23 02:46 Dose: 4 mg Documented By: BRENDAN Oxycodone HCl (Oxycodone Hcl Immed Release 5 Mg Tablet) 10 mg PO Q6H PRN PRN Reason: Pain, Moderate(Pain Scale 4-6) Polyethylene Glycol (Polyethylene Glycol 3350 17 Gm Powd.Pack) 17 gm PO DAILY [facility] Last Admin: 11/20/23 11:07 Dose: Not Given Documented By: ANASTASIIA Non-Admin Reason: Patient Refused Sodium Chloride (0.9 % Sodium Chloride Flush 3 Ml Syringe) 3 ml IVFLUSH QSHIFT [facility] Last Admin: 11/20/23 11:07 Dose: 3 ml Documented By: ANASTASIIA Labs 11/20/23 08:00 11/20/23 08:00 Labs: Laboratory Results - last 24 hr 11/19/23 11/19/23 11/20/23 17:02 20:40 07:32 MCV MCH MCHC RDW Plt Count MPV Absolute Nucleated RBC Nucleated RBC % (auto) VBG pH VBG pCO2 VBG pO2 VBG HCO3 VBG O2 Saturation VBG Base Excess Anion Gap Estim Creat Clear Calc Estimated GFR POC Glucose 308 H 232 H 161 H Random Glucose Calcium Phosphorus Magnesium Total Bilirubin AST ALT Alkaline Phosphatase Total Protein Albumin 11/20/23 11/20/23 11/20/23 08:00 08:00 08:00 MCV 86.1 D MCH 29.3 MCHC 34.0 RDW 18.3 H Plt Count 170 D MPV 12.1 Absolute Nucleated RBC 0.000 Nucleated RBC % (auto) 0.0 VBG pH VBG pCO2 VBG pO2 VBG HCO3 VBG O2 Saturation VBG Base Excess Anion Gap 17 Cancelled Estim Creat Clear Calc 24.7 Cancelled Estimated GFR 15 POC Glucose Random Glucose Calcium Phosphorus Magnesium Total Bilirubin AST ALT Alkaline Phosphatase Total Protein Albumin 11/20/23 11/20/23 11/20/23 08:00 08:00 08:00 MCV MCH MCHC RDW Plt Count MPV Absolute Nucleated RBC Nucleated RBC % (auto) VBG pH VBG pCO2 VBG pO2 VBG HCO3 VBG O2 Saturation VBG Base Excess Anion Gap Estim Creat Clear Calc Estimated GFR Cancelled POC Glucose Random Glucose 153 H Cancelled Calcium 7.6 L Cancelled Phosphorus 4.7 H Magnesium Total Bilirubin AST ALT Alkaline Phosphatase Total Protein Albumin 11/20/23 11/20/23 11/20/23 08:00 08:00 08:07 MCV MCH MCHC RDW Plt Count MPV Absolute Nucleated RBC Nucleated RBC % (auto) VBG pH 7.52 H VBG pCO2 31 VBG pO2 61 VBG HCO3 26 VBG O2 Saturation 91.0 VBG Base Excess 3.5 Anion Gap Estim Creat Clear Calc Estimated GFR POC Glucose Random Glucose Calcium Phosphorus Cancelled Magnesium 2.2 Cancelled Total Bilirubin 1.4 H AST 25 ALT 20 Alkaline Phosphatase 133 H Total Protein 6.5 Albumin 3.5 11/20/23 10:53 MCV MCH MCHC RDW Plt Count MPV Absolute Nucleated RBC Nucleated RBC % (auto) VBG pH VBG pCO2 VBG pO2 VBG HCO3 VBG O2 Saturation VBG Base Excess Anion Gap Estim Creat Clear Calc Estimated GFR POC Glucose 233 H Random Glucose Calcium Phosphorus Magnesium Total Bilirubin AST ALT Alkaline Phosphatase Total Protein Albumin Microbiology Microbiology Results: Microbiology 11/13/23 08:32 Blood Culture - Final Blood - Subclavian Pseudomonas aeruginosa 11/15/23 11:14 Blood Culture - Final Blood - Central Line Pseudomonas aeruginosa Assessment and Plan (1) CLABSI (central line-associated bloodstream infection): Status: Acute Plan d11 33yo F with ESRD on HD TuThSa [though refuses to go Sa], repeated hospitalizations due to nonadherence with HD, DM retinopathy with blindness, PVD s/p bilateral TMA, poorly controlled HTN due to nonadherence, chronic hypoxic respiratory failure, HFrEF, mood disorder, chronic pain initially admitted to hospitalist service after falling and missing HD but then became hypotensive without response to colloid resuscitation and hypoxia transferred to ICU for shock [determined due to sepsis and cardiogenic] and respiratory failure found to have Covid-19 infection and persistent Pseudomonas bacteremia intubated 11/11-11/16 weaned off pressors and ventilator, stepped down to telemetry 11/17 Pseudomonas CLABSI - On IV meropenem and gentamicin antibiotic lock. Discussed with ID, will treat definitively with HD catheter removal today and then repeat BCx 11/20 and once clear, replace tunnel HD catheter, hopefully 11/21. Discussed with IR + Nephrology. Once BCx clear, plan 14d of cefepime 2g IV p HD chronic foot wounds - per Wound Care: Elevate heels off of bed surface with heel protector boots. Cleanse with Betadine. Cover wound beds with dry ABD pad and gauze wrap. Change daily. acute/chronic respiratory failure due to Covid-19 pneumonia - continue dexametahsone 11/11-11/22/23; wean O2 as tolerated acute toxic-metabolic encephalopathy - resolved cardiogenic shock - resolved; continue carvedilol + hydralazine for HTN ESRD - HD TuThSa as per Nephrology but note pt has historically not gone to HD on Saturdays as outpt anemia of ESRD - monitor H+H DM2 - muna-dose lispro VTE ppx - UFH dispo - PT eval refused by pt In my clinical judgment, the patient requires continued inpatient hospitalization for the following reasons: IV ABX, CLABSI, HD access Total time managing care of this patient today: 45 minutes. Quality Stroke Does the patient have a stroke diagnosis?: No VTE Prior VTE?: No VTE Risk Level:: Medical - moderate - high VTE Device Contraindication: Treatment Not Indicated VTE Drug Contraindication: N/A - Med Ordered
--- NOTE | 2023-11-20 15:12 | PM.PROC ---
Brief Operative Note Date of procedure: 11/20/23 Pre-op diagnosis: Bacteremia Post-op diagnosis: same Procedure: Right IJ permcath removed. Tip sent for culture. No immediate complications. Anesthesia: local
[2023-11-20 15:21] LABS: Glucose, Whole Blood 398 mg/dL (60-115)
[2023-11-20 15:22] VITALS: BP 190/85; PULSE 91; TEMP 36.7; O2SAT 100
--- NOTE | 2023-11-20 15:59 | PC.NURSE ---
Addendum entered by Kitty Hernandez RN 11/20/23 16:26: Pt did take 1700 hydralazine dose with some more education. Original Note: Pt continues to refuse multiple medications (see MAR). Educated pt on reasoning of meds such as BP meds as BP now manually is up to 190/85 - pt denies any cardiac symptoms. Pt POC 398 at this time of 15:16- pt is presenting as baseline without hyperglycemic symptoms stating I dont need that, I dont want that, I need rest. Did allow IV abx, IV decadron and pain med per pt request. Pt can be resistive to care at times, refuses to turn. Continuing with wound care per wound RN recommendations. aware and this RN continues to educate patient on health status and importance of practicing medication regimen
[2023-11-20] MEDS: hydrALAZINE HCl 50 MG TABLET PO (16:24)
[2023-11-20 19:08] VITALS: BP 172/84; PULSE 80; RESP 18; TEMP 36.7; O2SAT 96
[2023-11-20 19:30] LABS: Glucose, Whole Blood 487 mg/dL (60-115)
[2023-11-20] MEDS: Labetalol HCL 100 MG/20 ML VIAL 20 MG IVPUSH (19:46)
[2023-11-20 20:06] VITALS: BP 160/78; PULSE 78
[2023-11-21] VITALS (9 sets, daily range): BP systolic 137–178; BP diastolic 60–85; PULSE 67–84; RESP 16–20; TEMP 36.4–36.8; O2SAT 95–99
[2023-11-21] MEDS: HYDROmorphone HCl 0.5 MG/0.5 ML SYRINGE 0.25 MG IVPUSH ×4 (01:54→20:17)
[2023-11-21] MEDS: Labetalol HCL 100 MG/20 ML VIAL 20 MG IVPUSH ×2 (01:56→11:44)
[2023-11-21] MEDS: ondansetron HCL 4 MG/2 ML VIAL IVPUSH ×3 (03:16→20:19)
[2023-11-21 03:25] LABS: Glucose, Whole Blood 311 mg/dL (60-115)
[2023-11-21 07:29] LABS: Glucose, Whole Blood 223 mg/dL (60-115)
[2023-11-21] MEDS: dexAMETHasone sod phosphate 4 MG/ML VIAL 6 MG IVPUSH (08:00)
[2023-11-21] MEDS: 0.9 % Sodium Chloride Flush 3 ML SYRINGE IVFLUSH ×2 (08:01→16:07)
--- NOTE | 2023-11-21 10:43 | P.PNIM_ITS ---
Subjective Subjective Date of Service: 11/21/23 Interval History: refusing many interventions including insulin, PO meds, blood cultures no fever c/o nausea Review of Systems Review of Systems: Yes all other systems are reviewed and are negative Physical Exam 2 Vital Signs: Vital Signs: Last Vital Signs Temp 98.0 F 11/21/23 07:44 Pulse 80 11/21/23 07:44 Resp 17 11/21/23 07:44 BP 155/72 H 11/21/23 07:44 Pulse Ox 99 11/21/23 07:44 O2 Del Method Nasal Cannula 11/21/23 07:44 O2 Flow Rate 2 11/21/23 07:44 FiO2 21 11/17/23 14:00 BMI result Body Mass Index 30.6 Gen: chronically ill, blind HEENT: sclera anicteric, moist mucus membranes Neck: supple Lungs: clear to auscultation bilaterally Heart: regular rate and rhythm, no murmurs Abd: soft, non-tender, non-distended Ext: no edema, R TMA, L TMA Skin: warm/well-perfused, dry ulcers on both TMA stumps Neuro: alert and oriented x3, no focal findings Psych: appropriate affect Objective Data Active Medications Acetaminophen (Acetaminophen 325 Mg Tablet) 975 mg PO Q6H PRN PRN Reason: Pain, Mild (Pain Scale 1-3), fever or headache Last Admin: 11/15/23 16:32 Dose: 975 mg Documented By: KESHAV Albuterol Sulfate (Albuterol Sulfate (0.083%) 2.5 Mg/3 Ml Vial.Neb) 2.5 mg INHALE Q3H PRN PRN Reason: Wheezing Carvedilol (Carvedilol 12.5 Mg Tablet) 12.5 mg PO BID [facility]; Protocol Last Admin: 11/21/23 08:26 Dose: Not Given Documented By: NETO Non-Admin Reason: Patient Refused Chlorhexidine Gluconate (Chlorhexidine Gluc Oral Rinse 15 Ml Mouthwash) 15 ml BUCCAL TID [facility] Last Admin: 11/21/23 07:33 Dose: Not Given Documented By: NETO Non-Admin Reason: Patient Refused Dexamethasone Sodium Phosphate (Dexamethasone Sod Phosphate 4 Mg/Ml Vial) 6 mg IVPUSH DAILY [facility] Last Admin: 11/21/23 08:00 Dose: 6 mg Documented By: NETO Diphenhydramine HCl (Diphenhydramine Hcl 25 Mg Capsule) 25 mg PO Q8H PRN PRN Reason: Itching Glucose (Glucose Gel 15 Gm Gel..Gram.) 15 gm PO Q15M PRN; Protocol PRN Reason: per Hypoglycemia Standing Ord. Heparin Sodium (Porcine) (Heparin Sodium,Porcine 5,000 Unit/Ml Vial) 5,000 unit SUBCUT Q12H [facility] Last Admin: 11/21/23 07:33 Dose: Not Given Documented By: NETO Non-Admin Reason: Patient Refused Hydralazine HCl (Hydralazine Hcl 50 Mg Tablet) 50 mg PO Q8H [facility]; Protocol Last Admin: 11/21/23 08:26 Dose: Not Given Documented By: NETO Non-Admin Reason: Patient Refused Hydromorphone HCl (Hydromorphone Hcl 0.5 Mg/0.5 Ml Syringe) 0.25 mg IVPUSH Q6H PRN; Protocol PRN Reason: Pain, Severe (Pain Scale 7-10) Last Admin: 11/21/23 07:59 Dose: 0.25 mg Documented By: NETO Dextrose (D10) 250 mls @ 750 mls/hr IV Q15M PRN PRN Reason: per Hypoglycemia Standing Ord. Meropenem 500 mg/ Sodium (Chloride) 50 mls @ 100 mls/hr IV Q12H [facility] Last Infusion: 11/21/23 08:48 Dose: Infused Documented By: NETO Insulin Human Lispro (Insulin Lispro 100 Unit/Ml 3 Ml Vial) 0 unit SUBCUT QIDACHS [facility]; Protocol Last Admin: 11/21/23 08:26 Dose: Not Given Documented By: NETO Non-Admin Reason: Patient Refused Labetalol HCl (Labetalol Hcl 100 Mg/20 Ml Vial) 20 mg IVPUSH Q10M PRN PRN Reason: SBP > 160 Last Admin: 11/21/23 01:56 Dose: 20 mg Documented By: NONA Ondansetron HCl (Ondansetron Hcl 4 Mg/2 Ml Vial) 4 mg IVPUSH Q4H PRN PRN Reason: Nausea and Vomiting Last Admin: 11/21/23 08:00 Dose: 4 mg Documented By: NETO Oxycodone HCl (Oxycodone Hcl Immed Release 5 Mg Tablet) 10 mg PO Q6H PRN PRN Reason: Pain, Moderate(Pain Scale 4-6) Polyethylene Glycol (Polyethylene Glycol 3350 17 Gm Powd.Pack) 17 gm PO DAILY [facility] Last Admin: 11/21/23 07:33 Dose: Not Given Documented By: NETO Non-Admin Reason: Patient Refused Sodium Chloride (0.9 % Sodium Chloride Flush 3 Ml Syringe) 3 ml IVFLUSH QSHIFT [facility] Last Admin: 11/21/23 08:01 Dose: 3 ml Documented By: NETO Labs 11/20/23 08:00 11/20/23 08:00 Labs: Laboratory Results - last 24 hr 11/20/23 11/20/23 11/20/23 10:53 15:11 19:21 POC Glucose 233 H 398 H* 487 H* 11/21/23 11/21/23 03:17 07:25 POC Glucose 311 H 223 H Microbiology Microbiology Results: Microbiology 11/20/23 13:15 Catheter Tip Culture - Preliminary Catheter Tip - Other Culture in progress. Assessment and Plan (1) CLABSI (central line-associated bloodstream infection): Status: Acute Plan d12 33yo F with ESRD on HD TuThSa [though refuses to go Sa], repeated hospitalizations due to nonadherence with HD, DM retinopathy with blindness, PVD s/p bilateral TMA, poorly controlled HTN due to nonadherence, chronic hypoxic respiratory failure, HFrEF, mood disorder, chronic pain initially admitted to hospitalist service after falling and missing HD but then became hypotensive without response to colloid resuscitation and hypoxia transferred to ICU for shock [determined due to sepsis and cardiogenic] and respiratory failure found to have Covid-19 infection and persistent Pseudomonas bacteremia intubated 11/11-11/16 weaned off pressors and ventilator, stepped down to telemetry 11/17 Pseudomonas CLABSI - was on IV meropenem and gentamicin antibiotic lock, unlikely to clear this organism. HD catheter removed yesterday and then repeat BCx today; once clear, replace tunnel HD catheter, hopefully 11/21. Discussed with IR + Nephrology. Once BCx clear, plan 14d of cefepime 2g IV p HD. Continue IV meropenem for now. chronic foot wounds - per Wound Care: Elevate heels off of bed surface with heel protector boots. Cleanse with Betadine. Cover wound beds with dry ABD pad and gauze wrap. Change daily. acute/chronic respiratory failure due to Covid-19 pneumonia - continue dexametahsone 11/11-11/22/23; wean O2 as tolerated acute toxic-metabolic encephalopathy - resolved cardiogenic shock - resolved; continue carvedilol + hydralazine for HTN ESRD - HD TuThSa as per Nephrology but note pt has historically not gone to HD on Saturdays as outpt anemia of ESRD - monitor H+H DM2 - muna-dose lispro VTE ppx - UFH dispo - PT eval refused by pt In my clinical judgment, the patient requires continued inpatient hospitalization for the following reasons: IV ABX, CLABSI, HD access Total time managing care of this patient today: 45 minutes. Quality Stroke Does the patient have a stroke diagnosis?: No VTE Prior VTE?: No VTE Risk Level:: Medical - moderate - high VTE Device Contraindication: Treatment Not Indicated VTE Drug Contraindication: N/A - Med Ordered
--- NOTE | 2023-11-21 11:13 | MHC.CM.PN ---
EMR reviewed and per MD rounds, pt is not medically cleared for discharge, pt will need blood cultures drawn.
--- NOTE | 2023-11-21 11:29 | PC.NURSE ---
Pt refusing point of care of care at this time. Pt says she will do it later.
--- NOTE | 2023-11-21 11:50 | MHC.CLN ---
F/U PO INTAKE 75-100% DIET RX: 1800DM-APPROPRIATE PT CONTINUES TO BE RESISTIVE TO CARE AND REFUSES MEDS MONITOR PO INTAKE CLOSELY FOLLOWING WITH TEAM
[2023-11-21 12:09] LABS: Glucose, Whole Blood 346 mg/dL (60-115)
--- NOTE | 2023-11-21 12:30 | P.PNNP_ITS ---
Subjective Subjective Date of Service: 11/21/23 Interval history: seen and examined c/o nausea Physical Exam 2 Vital Signs: Vital Signs: Last Vital Signs Temp 97.5 F 11/21/23 11:35 Pulse 80 11/21/23 11:35 Resp 16 11/21/23 11:35 BP 174/85 H 11/21/23 11:35 Pulse Ox 99 11/21/23 11:35 O2 Del Method Nasal Cannula 11/21/23 11:35 O2 Flow Rate 2 11/21/23 11:35 FiO2 21 11/17/23 14:00 BMI result Body Mass Index 30.6 Const: General: alert and awake HEENT: Head: Yes normocephalic and Yes atraumatic Neck: Neck: Yes supple Resp: Auscultation: diminished lung sounds Cardio: Heart sounds: S1 normal heart sound present and S2 normal heart sound present GI: Palpation (GI): Soft to palpation and nontender Extrem: General: Yes no pedal edema Objective Data Labs 11/20/23 08:00 11/20/23 08:00 Labs: Laboratory Results - last 24 hr 11/20/23 11/20/23 11/21/23 15:11 19:21 03:17 POC Glucose 398 H* 487 H* 311 H 11/21/23 11/21/23 07:25 12:04 POC Glucose 223 H 346 H Microbiology Microbiology Results: Microbiology 11/20/23 13:15 Catheter Tip - Other Catheter Tip Culture - Preliminary Culture in progress. 11/13/23 08:32 Blood - Subclavian Blood Culture - Final Pseudomonas aeruginosa 11/15/23 11:14 Blood - Central Line Blood Culture - Final Pseudomonas aeruginosa 11/15/23 11:09 Blood - Central Line Blood Culture - Final Pseudomonas aeruginosa 11/15/23 11:38 Trachea Gram Stain - Final 11/15/23 11:38 Trachea Sputum Culture - Final Riddhi albicans 11/13/23 08:32 Blood - Subclavian Blood Culture - Final Pseudomonas aeruginosa 11/12/23 18:12 Leg - Right Gram Stain - Final 11/12/23 18:12 Leg - Right Routine Culture - Final Pseudomonas aeruginosa Escherichia coli Staphylococcus aureus 11/11/23 14:29 Urine clean catch - Clean Catch Midstream Urine Culture - Final No growth. 11/10/23 15:14 Blood - Venous Blood Culture - Final Pseudomonas aeruginosa 11/10/23 15:14 Blood - Venous Blood Culture - Final Pseudomonas aeruginosa Procedures Date of Service Date of Service: 11/21/23 Assessment & Plan Assessment and plan (1) End stage chronic kidney disease: Status: Acute (2) CLABSI (central line-associated bloodstream infection): Status: Acute (3) COVID-19: Status: Acute (4) Anemia: Status: Acute Plan known ESRD on HD t-t-s at [facility] BC + with pseudomonas dialysis catheter removed nephrogenic anemia REC daily BC follow blood culture if BC negative [address] new Permcath HD after placement of access renal diet P binders VIPUL per protocol Time Spent With Patient Time: Total time managing care of this patient today ____ minutes. Progress Note: Quality Stroke Does the patient have a stroke diagnosis?: No
--- NOTE | 2023-11-21 13:15 | HO.WOUND ---
Wound Consult: Follow up 33yr old female? admitted to [facility] on 11/10/23 - See progress notes and H&P for detailed history.? 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 Wound consult follow up for Bilateral lower foot wounds and sacral wound. Patient is out of ICU and remains on [facility] unit. Arrival to bedside patient was educated on the importance of repositioning and allowing topical cream to be provided. Triad applied to sacral wound - direct care team had informed me she refused Triad and or foam dressing application. Patient at times is resistant to care - she was educated on the importance of her participation and allowing staff to provide interventions - she reports understanding and at this time reports she is agreeable to interventions going forward. Will follow up tomorrow and plan to change bilateral foot dressings. No new topical recommendations needed at this time. Recommendations: 1. Turn and Reposition every 2 hours and as needed for patient comfort.? Use pillows or wedges to support off loading positions. 2. Off Load all bony prominences with use of pillows and heel boots if needed.? Apply Preventative foams where needed. ? 3. Monitor for incontinence and moisture control, use barrier creams when needed for prevention and treatment. 4. Provide adequate and supplemental nutrition.? 5. Order or Continue low air loss mattress. 6. When applicable maintain blood glucose levels per Providers order. 7. Bilateral Foot wounds - Elevate heels off of bed surface with heel protector boots. Cleanse with NS, moist gauze. Cover wound beds with Iodosorb (only available from wound nurse) dry ABD pad and gauze wrap. Change every 3 days. . 8. Sacrococcygeal area - Off Load Pressure - Cleanse with PH balance spray or wipes, pat dry. ?Apply thin layer of Triad to wound bed - only pat and dab no scrub and rub when soiling occurs. Reapply thin layer PRN after each episode of incontinence. Re-consult wound care Nurse for wound deterioration or wound changes.
[2023-11-21 16:23] LABS: Glucose, Whole Blood 498 mg/dL (60-115)
[2023-11-21] MEDS: Insulin Lispro 100 UNIT/ML 3 ML VIAL SUBCUT ×2 (16:40→21:53)
[2023-11-21 21:46] LABS: Glucose, Whole Blood 305 mg/dL (60-115)
[2023-11-22] VITALS: BP 169/81; PULSE 81; RESP 17; TEMP 36.3; O2SAT 100
[2023-11-22 04:00] VITALS: BP 173/84; PULSE 78; RESP 17; TEMP 36.1; O2SAT 100
[2023-11-22 08:00] VITALS: BP 160/82; PULSE 81; RESP 20; TEMP 36.3; O2SAT 100
[2023-11-22 08:12] LABS: Glucose, Whole Blood 150 mg/dL (60-115)
[2023-11-22] MEDS: Chlorhexidine Gluc Oral Rinse 15 ML MOUTHWASH BUCCAL ×3 (08:41→20:50)
[2023-11-22] MEDS: HYDROmorphone HCl 0.5 MG/0.5 ML SYRINGE 0.25 MG IVPUSH (08:41)
[2023-11-22] MEDS: 0.9 % Sodium Chloride Flush 3 ML SYRINGE IVFLUSH ×3 (08:42→20:50)
--- NOTE | 2023-11-22 11:11 | HO.WOUND ---
Wound Consult: Follow up 33yr old female? admitted to [facility] on 11/10/23 - See progress notes and H&P for detailed history.? This patient is known to this sheet writer for frequent readmissions see chart for history. Wound consult follow up for Bilateral lower foot wounds and sacral wound. Patient is out of ICU and remains on Med Tele unit. Educaton and continued discussions attemptedf withpatient on resistence to care - she did not open her eyes for my assessment today and did not participate in conversation expect to report discomfort and verbalize her level of annoyance with her dressing changes. 10/18/23 Picture from previous admission 11/22/23 Left TMA site - Improving Dehiscence of surgical site - no active drainage noted - red wound bed noted - Iodosorb to keep dry and stable and allow for antimicrobial properties and break through biofilm. 11/13/23 11/19/23 11/22/23 Right Plantar Diabetic Wound - dry stable scabbed wound bed - Iodosorb to keep dry and stable and allow for antimicrobial properties and break through biofilm. 11/22/23 Right Lateral Diabetic Wound - Diabetic Wound - dry stable scabbed wound bed - Iodosorb to keep dry and stable and allow for antimicrobial properties and break through biofilm. 11/19/23 11/22/23 Right Dorsal Diabetic Wound - dry yellow scab - Iodosorb to keep dry and stable and allow for antimicrobial properties and break through biofilm. 11/13/23 11/19/23 11/22/23 Left Heel - Diabetic Wound - dry wound bed - necrotic tissue noted - no odor no drainage noted - no fluctuance and no induraton noted - Iodosorb to keep dry and stable and allow for antimicrobial properties and break through biofilm. 11/13/23 11/19/23 11/22/23 Left Plantar Diabetic Wound - dry dark scab wound bed callused edges - Iodosorb to keep dry and stable and allow for antimicrobial properties and break through biofilm. Etiology: ??Diabetic Wounds with various measurements and in various stages of healing Drainage / Odor: no odor noted - no actue infection noted to any wound to the feet Goals of Treatment: Iodosorb to keep dry and stable and allow for antimicrobial properties and break through biofilm. Sacrum not assessed today per pt refusal - direct care staff had just completed routine bathing and triad and foam dressing application. Of note direct care nurse reports patient has intermittently refused Triad application and was requesting foam dressing application. I attempted to discuss with pt her resistance to my topical recommendations - patient was not open to discussion at that time. Direct care team will continue to encourage patient participation and allowing care to be delivered - providers aware. Sacrococcygeal details below for last assessment. Etiology: ?Unknown Etiology: Clinical Manifestations of COVID 19 vs thrombocytopenia Wound Bed: In evolution - partial thickness tissue loss with pink viable wound bed Edges: ? irregular and not consistent with pressure given the edges and feathering of dark pigmentation and areas of resolution Pao wound: ? irregular dark pigmentation patterns and observable erythema Goals of Treatment: ? Off Load Pressure and Triad to protect from friction and moisture and allow for moist wound healing. No new topical recommendations needed at this time. Recommendations: 1. Turn and Reposition every 2 hours and as needed for patient comfort.? Use pillows or wedges to support off loading positions. 2. Off Load all bony prominences with use of pillows and heel boots if needed.? Apply Preventative foams where needed. ? 3. Monitor for incontinence and moisture control, use barrier creams when needed for prevention and treatment. 4. Provide adequate and supplemental nutrition.? 5. Order or Continue low air loss mattress. 6. When applicable maintain blood glucose levels per Providers order. 7. Bilateral Foot wounds - Elevate heels off of bed surface with heel protector boots. Cleanse with NS, moist gauze. Cover wound beds with Iodosorb (only available from wound nurse) dry ABD pad and gauze wrap. Change every 3 days. Extra Iodosrob left at bedside should dressing need to be change. 8. Sacrococcygeal area - Off Load Pressure - Cleanse with PH balance spray or wipes, pat dry. ?Apply thin layer of Triad to wound bed - only pat and dab no scrub and rub when soiling occurs. Reapply thin layer PRN after each episode of incontinence. Re-consult wound care Nurse for wound deterioration or wound changes.
[2023-11-22 11:20] VITALS: BP 158/86; PULSE 76; RESP 20; TEMP 36.4; O2SAT 100
--- NOTE | 2023-11-22 11:33 | P.PNIM_ITS ---
Subjective Subjective Date of Service: 11/22/23 Interval History: agrees to get BCx done; refused yesterday no dyspnea/cough nausea improved Review of Systems Review of Systems: Yes all other systems are reviewed and are negative Physical Exam 2 Vital Signs: Vital Signs: Last Vital Signs Temp 97.5 F 11/22/23 11:20 Pulse 76 11/22/23 11:20 Resp 20 11/22/23 11:20 BP 158/86 H 11/22/23 11:20 Pulse Ox 100 11/22/23 11:20 O2 Del Method Nasal Cannula 11/22/23 11:20 O2 Flow Rate 2.5 11/22/23 11:20 FiO2 21 11/17/23 14:00 BMI result Body Mass Index 30.6 Gen: chronically ill, blind HEENT: sclera anicteric, moist mucus membranes Neck: supple Lungs: clear to auscultation bilaterally Heart: regular rate and rhythm, no murmurs Abd: soft, non-tender, non-distended Ext: no edema, R TMA, L TMA Skin: warm/well-perfused, dry ulcers on both TMA stumps Neuro: alert and oriented x3, no focal findings Psych: appropriate affect Objective Data Active Medications Acetaminophen (Acetaminophen 325 Mg Tablet) 975 mg PO Q6H PRN PRN Reason: Pain, Mild (Pain Scale 1-3), fever or headache Last Admin: 11/15/23 16:32 Dose: 975 mg Documented By: KESHAV Albuterol Sulfate (Albuterol Sulfate (0.083%) 2.5 Mg/3 Ml Vial.Neb) 2.5 mg INHALE Q3H PRN PRN Reason: Wheezing Carvedilol (Carvedilol 12.5 Mg Tablet) 12.5 mg PO BID [facility]; Protocol Last Admin: 11/22/23 08:42 Dose: Not Given Documented By: RAFAEL Non-Admin Reason: Patient Refused Chlorhexidine Gluconate (Chlorhexidine Gluc Oral Rinse 15 Ml Mouthwash) 15 ml BUCCAL TID [facility] Last Admin: 11/22/23 08:41 Dose: 15 ml Documented By: RAFAEL Diphenhydramine HCl (Diphenhydramine Hcl 25 Mg Capsule) 25 mg PO Q8H PRN PRN Reason: Itching Glucose (Glucose Gel 15 Gm Gel..Gram.) 15 gm PO Q15M PRN; Protocol PRN Reason: per Hypoglycemia Standing Ord. Heparin Sodium (Porcine) (Heparin Sodium,Porcine 5,000 Unit/Ml Vial) 5,000 unit SUBCUT Q12H [facility] Last Admin: 11/22/23 08:42 Dose: Not Given Documented By: RAFAEL Non-Admin Reason: Patient Refused Hydralazine HCl (Hydralazine Hcl 50 Mg Tablet) 50 mg PO Q8H [facility]; Protocol Last Admin: 11/22/23 08:42 Dose: Not Given Documented By: RAFAEL Non-Admin Reason: Patient Refused Hydromorphone HCl (Hydromorphone Hcl 0.5 Mg/0.5 Ml Syringe) 0.25 mg IVPUSH Q6H PRN; Protocol PRN Reason: Pain, Severe (Pain Scale 7-10) Last Admin: 11/22/23 08:41 Dose: 0.25 mg Documented By: RAFAEL Dextrose (D10) 250 mls @ 750 mls/hr IV Q15M PRN PRN Reason: per Hypoglycemia Standing Ord. Meropenem 500 mg/ Sodium (Chloride) 50 mls @ 100 mls/hr IV Q12H [facility] Last Infusion: 11/22/23 09:21 Dose: Infused Documented By: RAFAEL Insulin Human Lispro (Insulin Lispro 100 Unit/Ml 3 Ml Vial) 0 unit SUBCUT QIDACHS [facility]; Protocol Last Admin: 11/22/23 08:13 Dose: Not Given Documented By: RAFAEL Non-Admin Reason: No Insulin Coverage Labetalol HCl (Labetalol Hcl 100 Mg/20 Ml Vial) 20 mg IVPUSH Q10M PRN PRN Reason: SBP > 160 Last Admin: 11/21/23 11:44 Dose: 20 mg Documented By: NETO Metoclopramide HCl (Metoclopramide Hcl 10 Mg/2 Ml Vial) 5 mg IVPUSH Q4H PRN PRN Reason: N/V unrelieved by Patricia Ondansetron HCl (Ondansetron Hcl 4 Mg/2 Ml Vial) 4 mg IVPUSH Q4H PRN PRN Reason: Nausea and Vomiting Last Admin: 11/21/23 20:19 Dose: 4 mg Documented By: BRENDAN Oxycodone HCl (Oxycodone Hcl Immed Release 5 Mg Tablet) 10 mg PO Q6H PRN PRN Reason: Pain, Moderate(Pain Scale 4-6) Polyethylene Glycol (Polyethylene Glycol 3350 17 Gm Powd.Pack) 17 gm PO DAILY [facility] Last Admin: 11/22/23 08:43 Dose: Not Given Documented By: RAFAEL Non-Admin Reason: Patient Refused Sodium Chloride (0.9 % Sodium Chloride Flush 3 Ml Syringe) 3 ml IVFLUSH QSHIFT [facility] Last Admin: 11/22/23 08:42 Dose: 3 ml Documented By: RAFAEL Labs 11/20/23 08:00 11/20/23 08:00 Labs: Laboratory Results - last 24 hr 11/21/23 11/21/23 11/21/23 12:04 16:17 21:42 POC Glucose 346 H 498 H* 305 H 11/22/23 08:01 POC Glucose 150 H Microbiology Microbiology Results: Microbiology 11/20/23 13:15 Catheter Tip Culture - Preliminary Catheter Tip - Other Yeast Assessment and Plan (1) CLABSI (central line-associated bloodstream infection): Status: Acute Plan d13 33yo F with ESRD on HD TuThSa [though refuses to go Sa], repeated hospitalizations due to nonadherence with HD, DM retinopathy with blindness, PVD s/p bilateral TMA, poorly controlled HTN due to nonadherence, chronic hypoxic respiratory failure, HFrEF, mood disorder, chronic pain initially admitted to hospitalist service after falling and missing HD but then became hypotensive without response to colloid resuscitation and hypoxia transferred to ICU for shock [determined due to sepsis and cardiogenic] and respiratory failure found to have Covid-19 infection and persistent Pseudomonas bacteremia intubated 11/11-11/16 weaned off pressors and ventilator, stepped down to telemetry 11/17 Pseudomonas CLABSI - was on IV meropenem and gentamicin antibiotic lock, unlikely to clear this organism. HD catheter removed 11/19 and then plan was for repeat BCx 11/20 am but pt refused. Pt agreed 11/20 pm but refused again. Counseled extensively on dire consequences of not documenting clear bloodstream so that she can get a replacement tunnel HD catheter. If continues to refuse, will have to consult Psychiatry re capacity. - will update IR + Nephrology. Once BCx clear, plan 14d of cefepime 2g IV p HD per ID. Continue IV meropenem for now. chronic foot wounds - per Wound Care: Elevate heels off of bed surface with heel protector boots. Cleanse with Betadine. Cover wound beds with dry ABD pad and gauze wrap. Change daily. acute/chronic respiratory failure due to Covid-19 pneumonia - continue dexamethasone 11/11-11/22/23; to complete today acute toxic-metabolic encephalopathy - resolved cardiogenic shock - resolved; continue carvedilol + hydralazine for HTN ESRD - HD TuThSa as per Nephrology but note pt has historically not gone to HD on Saturdays as outpt. Last HD was 11/19 anemia of ESRD - monitor H+H DM2 - muna-dose lispro VTE ppx - UFH dispo - PT eval refused by pt In my clinical judgment, the patient requires continued inpatient hospitalization for the following reasons: IV ABX, CLABSI, HD access Total time managing care of this patient today: 45 minutes. Quality Stroke Does the patient have a stroke diagnosis?: No VTE Prior VTE?: No VTE Risk Level:: Medical - moderate - high VTE Device Contraindication: Treatment Not Indicated VTE Drug Contraindication: N/A - Med Ordered
[2023-11-22 11:51] LABS: Glucose, Whole Blood 119 mg/dL (60-115)
--- NOTE | 2023-11-22 15:10 | PM.PSYCN ---
History of Present Illness Date of Service: 11/22/2023 Chief Complaint: Acute on chronic renal failure Reason for Consult: capacity HPI Narrative: per 11/21 medicine progress note: 33yo F with ESRD on HD TuThSa [though refuses to go Sa], repeated hospitalizations due to nonadherence with HD, DM retinopathy with blindness, PVD s/p bilateral TMA, poorly controlled HTN due to nonadherence, chronic hypoxic respiratory failure, HFrEF, mood disorder, chronic pain initially admitted to hospitalist service after falling and missing HD but then became hypotensive without response to colloid resuscitation and hypoxia transferred to ICU for shock [determined due to sepsis and cardiogenic] and respiratory failure found to have Covid-19 infection and persistent Pseudomonas bacteremia intubated 11/11-11/16 weaned off pressors and ventilator, stepped down to telemetry 11/17 Pseudomonas CLABSI - was on IV meropenem and gentamicin antibiotic lock, unlikely to clear this organism. HD catheter removed 11/19 and then plan was for repeat BCx 11/20 am but pt refused. Pt agreed 11/20 pm but refused again. Counseled extensively on dire consequences of not documenting clear bloodstream so that she can get a replacement tunnel HD catheter. If continues to refuse, will have to consult Psychiatry re capacity. - will update IR + Nephrology. Once BCx clear, plan 14d of cefepime 2g IV p HD per ID. Continue IV meropenem for now. chronic foot wounds - per Wound Care: Elevate heels off of bed surface with heel protector boots. Cleanse with Betadine. Cover wound beds with dry ABD pad and gauze wrap. Change daily. acute/chronic respiratory failure due to Covid-19 pneumonia - continue dexamethasone 11/11-11/22/23; to complete today acute toxic-metabolic encephalopathy - resolved cardiogenic shock - resolved; continue carvedilol + hydralazine for HTN ESRD - HD TuThSa as per Nephrology but note pt has historically not gone to HD on Saturdays as outpt. Last HD was 11/19 anemia of ESRD - monitor H+H DM2 - muna-dose lispro VTE ppx - UFH dispo - PT eval refused by pt PSYCH CTSP for capacity eval as pt has been refusing bld ctx, which are required to document infection has cleared so that a new dialysis line can be placed so she can continue to receive dialysis (old line was apparently nidus of infection and was pulled in sunday). on interview with pt, pt was found resting in her hospital bed in her room. she was rousable to voice and engaged easily with interviewer. MD informed pt of purpose of visit. she believed she had allowed blood cultures and seemed confused or surprised on being told that was the case. she understood blood cultures were needed to be sure she had cleared her infection. she was unable to say what documentation of cleared infection was needed for (placement of a new line so she could continue to have dialysis). the series of events and logic of them was explained to her, as well as that she would without ongoing dialysis. she denied SI and stated she wanted a new line placed and to continue to have dialysis. she was aware of the year, month, that it is toward the end of the month. she was unable to report the day of the week or the exact date. she was able to say we are in [facility], at [facility], and on the 4th floor. on being asked to inform MD of the concerns and recommended Tx plan, pt was able to recite the information some few minutes after being informed. she indicated a desire to comply with the treatment plan. she denied feeling confused recently. Past Psychiatric History: hx of one inpatient psychiatric hospitalization at [facility]. hx of seeing an outpatient psychiatrist and therapist when she was 11 y/o; does not recall medication hx. [facility] Medical History (Updated 11/21/23 @ 12:31 by Jason Sanchez MD) Anemia Chronic foot ulcer Plantar ulcer of left foot Major depressive disorder, single episode, severe ESRD (end stage renal disease) Non-compliance with renal dialysis Hypertensive urgency MDD (major depressive disorder), recurrent episode MDD (major depressive disorder) Renal failure Foot ulcer CKD (chronic kidney disease) Hypertension Diabetic foot Hyperkalemia Vomiting Renal failure Hypertension Migraine Chronic pain ESRD on dialysis Non-compliance with renal dialysis Hypertension End-stage renal disease (ESRD) Gastroparesis Diabetic foot ulcer associated with type 2 diabetes mellitus Hypertensive emergency Diabetes ESRD needing dialysis Cardiomyopathy HFrEF (heart failure with reduced ejection fraction) Metabolic acidosis delivery delivered Anemia in chronic kidney disease (CKD) CKD (chronic kidney disease) Headache, migraine Abnormal finding on echocardiogram Elevated troponin Chest pain Acute worsening of stage 3 chronic kidney disease Generalized edema Sepsis Cellulitis Pleural effusion CHF (congestive heart failure) (~06/07/22) Tachycardia Atypical chest pain Bone infection PAD (peripheral artery disease) Severe anemia Cellulitis and abscess of foot DM foot ulcer Osteomyelitis Asthma Depression with anxiety Diabetic retinopathy Type 2 diabetes mellitus with hyperglycemia, with long-term current use of insulin Blind right eye Diabetes Back pain Surgical History Tubal ligation status Previous section Hx laparoscopic cholecystectomy Hx of surgical procedure (~09/11/23) 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 Family History: unknown Social History: Lives with her sister, single, 2 children(13 and 11 y/o; live with their father in [place]), disability Trauma History: yes Diagnostics Vital Signs (24Hr): Vital Signs - 24 hr 11/21/23 16:00 11/21/23 20:00 11/22/23 00:00 Temperature 98.2 F 97.8 F 97.3 F Pulse Rate 82 84 81 Respiratory Rate 16 17 17 Blood Pressure 162/84 H 155/74 H 169/81 H Pulse Oximetry 99 99 100 Oxygen Delivery Method Nasal Cannula Nasal Cannula Nasal Cannula Oxygen Flow Rate 2 2 2 11/22/23 04:00 11/22/23 08:00 11/22/23 11:20 Temperature 97 F 97.4 F 97.5 F Pulse Rate 78 81 76 Respiratory Rate 17 20 20 Blood Pressure 173/84 H 160/82 H 158/86 H Pulse Oximetry 100 100 100 Oxygen Delivery Method Nasal Cannula Nasal Cannula Nasal Cannula Oxygen Flow Rate 2 2.5 2.5 BMI result Body Mass Index 30.6 Labs 11/20/23 08:00 11/20/23 08:00 Labs: Laboratory Results - last 48 hr 11/20/23 11/20/23 11/21/23 15:11 19:21 03:17 POC Glucose 398 H* 487 H* 311 H 11/21/23 11/21/23 11/21/23 07:25 12:04 16:17 POC Glucose 223 H 346 H 498 H* 11/21/23 11/22/23 11/22/23 21:42 08:01 11:19 POC Glucose 305 H 150 H 119 H Imaging Radiology Impressions: ITS Impressions Chest X-Ray 11/10/23 15:00 IMPRESSION: Right mid and lower lung bronchial wall thickening and hazy opacities could reflect infectious or inflammatory process. No dense consolidation is evident in the retrocardiac region on the frontal radiograph. Electronically signed by: Babak Cloud MD 11/10/2023 03:20 PM EDT RP Chest X-Ray 11/10/23 20:25 IMPRESSION: No acute pulmonary pathology. Electronically signed by: Ata Lagunas MD 11/11/2023 07:45 AM EDT RP Chest X-Ray 11/11/23 16:05 IMPRESSION: 1. Right-sided tunneled dialysis catheter terminating the right atrium. 2. Enlarged cardiomediastinal silhouette. 3. Bilateral low lung volumes. 4. Pulmonary vascular prominence. 5. Slight elevation right hemidiaphragm. Electronically signed by: Nakul Fabian MD 11/11/2023 04:21 PM EDT RP Venous Duplex 11/11/23 18:29 IMPRESSION: No evidence of deep venous thrombosis involving the bilateral lower extremities. Electronically signed by: Vani Alva MD 11/11/2023 06:59 PM EDT RP Chest X-Ray 11/12/23 07:20 IMPRESSION: Low lung volumes unchanged. Large cardiomediastinal silhouette unchanged. Electronically signed by: Chaparro Macdonald MD 11/12/2023 02:07 PM EDT RP Chest X-Ray 11/12/23 13:45 IMPRESSION: 1. ET tube 3.9 cm above the yara on the final image. 2. NG tube extends into the stomach. 3. Tunneled right jugular PermCath in good position. Electronically signed by: Kareem Weathers MD 11/12/2023 03:30 PM EDT RP Chest X-Ray 11/12/23 13:45 IMPRESSION: 1. ET tube 3.9 cm above the yara on the final image. 2. NG tube extends into the stomach. 3. Tunneled right jugular PermCath in good position. Electronically signed by: Kareem Weathers MD 11/12/2023 03:30 PM EDT RP Abdomen/Pelvis CT 11/14/23 12:52 IMPRESSION: 1. No evidence of pulmonary embolism. 2. Bibasilar atelectasis and trace of pleural effusion. 3. Large amount of ascites. 4. Heterogeneous liver, status post cholecystectomy. VTE: negative. Electronically signed by: Pat Cortez MD 11/14/2023 04:54 PM EDT RP Chest CTA 11/14/23 12:52 IMPRESSION: 1. No evidence of pulmonary embolism. 2. Bibasilar atelectasis and trace of pleural effusion. 3. Large amount of ascites. 4. Heterogeneous liver, status post cholecystectomy. VTE: negative. Electronically signed by: Pat Cortez MD 11/14/2023 04:54 PM EDT RP Mental Status Exam Mental Status Exam Narrative: adequately dressed and groomed for context. cooperative. no PMA/PMR. speech soft, decr amount, flattened prosody. incr latency. thoughts linear and logical. affect blunted, hypo-intense, non-labile. mood all right. denies SI. no HI/AVH expressed. Medications Medications Current Medications Acetaminophen (Acetaminophen 325 Mg Tablet) 975 mg PO Q6H PRN PRN Reason: Pain, Mild (Pain Scale 1-3), fever or headache Last Admin: 11/15/23 16:32 Dose: 975 mg Albuterol Sulfate (Albuterol Sulfate (0.083%) 2.5 Mg/3 Ml Vial.Neb) 2.5 mg INHALE Q3H PRN PRN Reason: Wheezing Carvedilol (Carvedilol 12.5 Mg Tablet) 12.5 mg PO BID [facility]; Protocol Last Admin: 11/22/23 08:42 Dose: Not Given Chlorhexidine Gluconate (Chlorhexidine Gluc Oral Rinse 15 Ml Mouthwash) 15 ml BUCCAL TID [facility] Last Admin: 11/22/23 08:41 Dose: 15 ml Diphenhydramine HCl (Diphenhydramine Hcl 25 Mg Capsule) 25 mg PO Q8H PRN PRN Reason: Itching Glucose (Glucose Gel 15 Gm Gel..Gram.) 15 gm PO Q15M PRN; Protocol PRN Reason: per Hypoglycemia Standing Ord. Heparin Sodium (Porcine) (Heparin Sodium,Porcine 5,000 Unit/Ml Vial) 5,000 unit SUBCUT Q12H [facility] Last Admin: 11/22/23 08:42 Dose: Not Given Hydralazine HCl (Hydralazine Hcl 50 Mg Tablet) 50 mg PO Q8H [facility]; Protocol Last Admin: 11/22/23 08:42 Dose: Not Given Hydromorphone HCl (Hydromorphone Hcl 0.5 Mg/0.5 Ml Syringe) 0.25 mg IVPUSH Q6H PRN; Protocol PRN Reason: Pain, Severe (Pain Scale 7-10) Last Admin: 11/22/23 08:41 Dose: 0.25 mg Dextrose (D10) 250 mls @ 750 mls/hr IV Q15M PRN PRN Reason: per Hypoglycemia Standing Ord. Meropenem 500 mg/ Sodium (Chloride) 50 mls @ 100 mls/hr IV Q12H [facility] Last Infusion: 11/22/23 09:21 Dose: Infused Insulin Human Lispro (Insulin Lispro 100 Unit/Ml 3 Ml Vial) 0 unit SUBCUT QIDACHS [facility]; Protocol Last Admin: 11/22/23 12:03 Dose: Not Given Labetalol HCl (Labetalol Hcl 100 Mg/20 Ml Vial) 20 mg IVPUSH Q10M PRN PRN Reason: SBP > 160 Last Admin: 11/21/23 11:44 Dose: 20 mg Metoclopramide HCl (Metoclopramide Hcl 10 Mg/2 Ml Vial) 5 mg IVPUSH Q4H PRN PRN Reason: N/V unrelieved by Patricia Ondansetron HCl (Ondansetron Hcl 4 Mg/2 Ml Vial) 4 mg IVPUSH Q4H PRN PRN Reason: Nausea and Vomiting Last Admin: 11/21/23 20:19 Dose: 4 mg Oxycodone HCl (Oxycodone Hcl Immed Release 5 Mg Tablet) 10 mg PO Q6H PRN PRN Reason: Pain, Moderate(Pain Scale 4-6) Polyethylene Glycol (Polyethylene Glycol 3350 17 Gm Powd.Pack) 17 gm PO DAILY [facility] Last Admin: 11/22/23 08:43 Dose: Not Given Sodium Chloride (0.9 % Sodium Chloride Flush 3 Ml Syringe) 3 ml IVFLUSH QSHIFT [facility] Last Admin: 11/22/23 08:42 Dose: 3 ml Allergies Allergies Allergy/AdvReac Type Severity Reaction Status Date / Time morphine [MORPHINE] Allergy Intermediate Itching Verified 11/09/23 21:22 azithromycin [From Zithromax] Allergy Hives Verified 11/09/23 21:22 gabapentin Allergy Facial Verified 11/09/23 21:22 Swelling tramadol Allergy Facial Verified 11/09/23 21:22 Swelling vancomycin Allergy Anaphylaxis Verified 11/09/23 21:22 Assessment & Plan Assessment & Plan (1) CLABSI (central line-associated bloodstream infection): Status: Acute Code(s): T80.211A - Bloodstream infection due to central venous catheter, initial encounter Plan pt is able to take in new information, rationally manipulate it, and consistently express a desire for a particular option. she clearly retains capacity at the moment. most likely confusing the matter in recent days is some measure of delirium due to her medical state or her various medications in concert. at the time of the interview, however, pt was cogent and clear in her expression of lack of SI and desire to have bld ctx, a new line, and ongoing dialysis. Total time managing care of this patient today __55__ minutes.
[2023-11-22 15:21] VITALS: BP 156/82; PULSE 77; RESP 20; TEMP 36.3; O2SAT 100
[2023-11-22 16:25] LABS: Glucose, Whole Blood 98 mg/dL (60-115)
[2023-11-22 20:00] VITALS: BP 183/97; PULSE 76; RESP 20; TEMP 36.1; O2SAT 99
[2023-11-22] MEDS: carvediloL 12.5 MG TABLET PO (20:49)
[2023-11-22] MEDS: Heparin Sodium,Porcine 5,000 UNIT/ML VIAL 5000 UNIT SUBCUT (20:49)
[2023-11-22 21:08] LABS: Glucose, Whole Blood 97 mg/dL (60-115)
[2023-11-22] MEDS: oxyCODONE HCl Immed Release 5 MG TABLET 10 MG PO (21:36)
[2023-11-23] VITALS (7 sets, daily range): BP systolic 113–180; BP diastolic 56–92; PULSE 70–90; RESP 18–20; TEMP 36.2–37.2; O2SAT 99–100
[2023-11-23] MEDS: hydrALAZINE HCl 50 MG TABLET PO (00:08)
--- NOTE | 2023-11-23 01:33 | P.PNNP_ITS ---
Subjective Subjective Date of Service: 11/22/23 Interval history: Seen and exmined Last HD 11/19 Refusing lbas yesterday--still needs repeat Bld cult Physical Exam 2 Vital Signs: Vital Signs: Last Vital Signs Temp 97.1 F 11/23/23 00:00 Pulse 77 11/23/23 00:00 Resp 20 11/23/23 00:00 BP 180/92 H 11/23/23 00:00 Pulse Ox 100 11/23/23 00:00 O2 Del Method Room Air 11/23/23 00:00 O2 Flow Rate 2 11/22/23 20:00 FiO2 21 11/17/23 14:00 BMI result Body Mass Index 30.6 Const: General: cooperative, alert and awake HEENT: Head: Yes normal to inspection, Yes normocephalic and Yes atraumatic Face and sinus: Yes normal facial exam Mouth: Normal oral and palatal mucosa present Teeth and gingiva: dentition normal Eyes: General: appearance normal, both eyes and all related structures P upils: Equal, round and reactive pupils present Neck: Neck: Yes supple Resp: Other: on ventilator Auscultation: diminished lung sounds Cardio: Rate: regular rate Rhythm: regular rhythm Heart sounds: S1 normal heart sound present and S2 normal heart sound present GI: Palpation (GI): Soft to palpation and nontender : General: Yes no CVA tenderness Back/Spine/Pelvis: Back: no CVA tenderness Skin: General skin exam: no rashes or lesions noted Neuro: General: moves all extremities Cranial nerves: Yes Equal, round and reactive pupils present Extrem: General: Yes normal to inspection and Yes no pedal edema Psych: Appearance: grossly normal Objective Data Labs 11/20/23 08:00 11/20/23 08:00 Labs: Laboratory Results - last 24 hr 11/22/23 11/22/23 11/22/23 08:01 11:19 16:21 POC Glucose 150 H 119 H 98 11/22/23 20:47 POC Glucose 97 Microbiology Microbiology Results: Microbiology 11/20/23 13:15 Catheter Tip - Other Catheter Tip Culture - Preliminary Yeast 11/13/23 08:32 Blood - Subclavian Blood Culture - Final Pseudomonas aeruginosa 11/15/23 11:14 Blood - Central Line Blood Culture - Final Pseudomonas aeruginosa 11/15/23 11:09 Blood - Central Line Blood Culture - Final Pseudomonas aeruginosa 11/15/23 11:38 Trachea Gram Stain - Final 11/15/23 11:38 Trachea Sputum Culture - Final Riddhi albicans 11/13/23 08:32 Blood - Subclavian Blood Culture - Final Pseudomonas aeruginosa 11/12/23 18:12 Leg - Right Gram Stain - Final 11/12/23 18:12 Leg - Right Routine Culture - Final Pseudomonas aeruginosa Escherichia coli Staphylococcus aureus 11/11/23 14:29 Urine clean catch - Clean Catch Midstream Urine Culture - Final No growth. 11/10/23 15:14 Blood - Venous Blood Culture - Final Pseudomonas aeruginosa 11/10/23 15:14 Blood - Venous Blood Culture - Final Pseudomonas aeruginosa Procedures Date of Service Date of Service: 11/23/23 Assessment & Plan Assessment and plan (1) End stage chronic kidney disease: Status: Acute (2) CLABSI (central line-associated bloodstream infection): Status: Acute (3) COVID-19: Status: Acute (4) Anemia: Status: Acute Plan 1. ESRD: usu TTS [place] poorly complaint missing many treatemnts in past last HD 11/19 and Pcath removed d/t persistnet Pseudomonas bact 2. Hemoaccess: as noted Pcath removed 11/19 and look to replace once Bld cult neg x 48 hrs; may need temp HD cath and HD on Sunday vs wait till Sunday and Pcath then 3. ID: [id number] as noted BC + with pseudomonas dialysis catheter removed 4, nephrogenic anemia REC Needs daily K level daily BC follow blood culture if BC negative [address] new Permcath HD after placement of access--may need temp HD cath 11/22 depending on labs renal diet and make sure low K diet P binders VIPUL per protocol will follow ashley garcia Get Psych to see PT if she refuses labs to assess competency Time Spent With Patient Time: Total time managing care of this patient today ____ minutes. Progress Note: Quality Stroke Does the patient have a stroke diagnosis?: No
[2023-11-23 07:31] LABS: Glucose, Whole Blood 76 mg/dL (60-115)
[2023-11-23] MEDS: 0.9 % Sodium Chloride Flush 3 ML SYRINGE IVFLUSH ×2 (07:47→14:06)
[2023-11-23] MEDS: HYDROmorphone HCl 0.5 MG/0.5 ML SYRINGE 0.25 MG IVPUSH ×3 (07:48→21:50)
[2023-11-23] MEDS: Chlorhexidine Gluc Oral Rinse 15 ML MOUTHWASH BUCCAL ×3 (07:48→21:51)
[2023-11-23] MEDS: Glucose Gel 15 GM GEL..GRAM. PO (07:49)
[2023-11-23 08:51] LABS: Glucose, Whole Blood 77 mg/dL (60-115)
--- NOTE | 2023-11-23 09:38 | HO.PM.IMPN ---
Subjective Subjective Date of Service: 11/23/23 Interval History: finally had BCx yesterday afternoon BG in 70s this AM no dyspnea/cough on baseline home O2 3L Review of Systems Review of Systems: Yes all other systems are reviewed and are negative Physical Exam Vital Signs: Vital Signs: Last Vital Signs Temp 97.6 F 11/23/23 07:44 Pulse 74 11/23/23 07:44 Resp 18 11/23/23 07:44 BP 132/63 11/23/23 07:44 Pulse Ox 100 11/23/23 07:44 O2 Del Method Nasal Cannula 11/23/23 07:44 O2 Flow Rate 2 11/23/23 07:44 FiO2 21 11/17/23 14:00 BMI result Body Mass Index 30.6 Gen: chronically ill, blind HEENT: sclera anicteric, moist mucus membranes Neck: supple Lungs: clear to auscultation bilaterally Heart: regular rate and rhythm, no murmurs Abd: soft, non-tender, non-distended Ext: no edema, R TMA, L TMA Skin: warm/well-perfused, dry ulcers on both TMA stumps Neuro: alert and oriented x3, no focal findings Psych: appropriate affect Objective Data Active Medications Acetaminophen (Acetaminophen 325 Mg Tablet) 975 mg PO Q6H PRN PRN Reason: Pain, Mild (Pain Scale 1-3), fever or headache Last Admin: 11/15/23 16:32 Dose: 975 mg Documented By: KESHAV Albuterol Sulfate (Albuterol Sulfate (0.083%) 2.5 Mg/3 Ml Vial.Neb) 2.5 mg INHALE Q3H PRN PRN Reason: Wheezing Carvedilol (Carvedilol 12.5 Mg Tablet) 12.[address] [facility]; Protocol Last Admin: 11/23/23 07:49 Dose: Not Given Documented By: RAFAEL Non-Admin Reason: Patient Refused Chlorhexidine Gluconate (Chlorhexidine Gluc Oral Rinse 15 Ml Mouthwash) [address] [facility] Last Admin: 11/23/23 07:48 Dose: 15 ml Documented By: RAFAEL Diphenhydramine HCl (Diphenhydramine Hcl 25 Mg Capsule) 25 mg PO Q8H PRN PRN Reason: Itching Glucose (Glucose Gel 15 Gm Gel..Gram.) 15 gm PO Q15M PRN; Protocol PRN Reason: per Hypoglycemia Standing Ord. Last Admin: 11/23/23 07:49 Dose: 15 gm Documented By: RAFAEL Heparin Sodium (Porcine) (Heparin Sodium,Porcine 5,000 Unit/Ml Vial) 5,[address] [facility] Last Admin: 11/23/23 07:48 Dose: Not Given Documented By: RAFAEL Non-Admin Reason: Patient Refused Hydralazine HCl (Hydralazine Hcl 50 Mg Tablet) [address] [facility]; Protocol Last Admin: 11/23/23 07:49 Dose: Not Given Documented By: RAFAEL Non-Admin Reason: Patient Refused Hydromorphone HCl (Hydromorphone Hcl 0.5 Mg/0.5 Ml Syringe) 0.25 mg IVPUSH Q6H PRN; Protocol PRN Reason: Pain, Severe (Pain Scale 7-10) Last Admin: 11/23/23 07:48 Dose: 0.25 mg Documented By: RAFAEL Dextrose (D10) 250 mls @ 750 mls/hr IV Q15M PRN PRN Reason: per Hypoglycemia Standing Ord. Insulin Human Lispro (Insulin Lispro 100 Unit/Ml 3 Ml Vial) [address] [facility]; Protocol Last Admin: 11/23/23 07:31 Dose: Not Given Documented By: RAFAEL Non-Admin Reason: No Insulin Coverage Labetalol HCl (Labetalol Hcl 100 Mg/20 Ml Vial) 20 mg IVPUSH Q10M PRN PRN Reason: SBP > 160 Last Admin: 11/21/23 11:44 Dose: 20 mg Documented By: NETO Metoclopramide HCl (Metoclopramide Hcl 10 Mg/2 Ml Vial) 5 mg IVPUSH Q4H PRN PRN Reason: N/V unrelieved by Patricia Ondansetron HCl (Ondansetron Hcl 4 Mg/2 Ml Vial) 4 mg IVPUSH Q4H PRN PRN Reason: Nausea and Vomiting Last Admin: 11/21/23 20:19 Dose: 4 mg Documented By: BRENDAN Oxycodone HCl (Oxycodone Hcl Immed Release 5 Mg Tablet) 10 mg PO Q6H PRN PRN Reason: Pain, Moderate(Pain Scale 4-6) Last Admin: 11/22/23 21:36 Dose: 10 mg Documented By: DALLAS Polyethylene Glycol (Polyethylene Glycol 3350 17 Gm Powd.Pack) [address] [facility] Last Admin: 11/23/23 07:49 Dose: Not Given Documented By: RAFAEL Non-Admin Reason: Patient Refused Sodium Chloride (0.9 % Sodium Chloride Flush 3 Ml Syringe) [address] [facility] Last Admin: 11/23/23 07:47 Dose: 3 ml Documented By: RAFAEL Labs 11/20/23 08:00 11/20/23 08:00 Labs: Laboratory Results - last 24 hr 11/22/23 11/22/23 11/22/23 11:19 16:21 20:47 POC Glucose 119 H 98 97 11/23/23 11/23/23 07:26 08:47 POC Glucose 76 77 Microbiology Microbiology Results: Microbiology 11/20/23 13:15 Catheter Tip Culture - Final Catheter Tip - Other Riddhi albicans Assessment and Plan (1) CLABSI (central line-associated bloodstream infection): Status: Acute Plan d14 33yo F with ESRD on HD TuThSa [though refuses to go Sa], repeated hospitalizations due to nonadherence with HD, DM retinopathy with blindness, PVD s/p bilateral TMA, poorly controlled HTN due to nonadherence, chronic hypoxic respiratory failure, HFrEF, mood disorder, chronic pain initially admitted to hospitalist service after falling and missing HD but then became hypotensive without response to colloid resuscitation and hypoxia transferred to ICU for shock [determined due to sepsis and cardiogenic] and respiratory failure found to have Covid-19 infection and persistent Pseudomonas bacteremia intubated 11/11-11/16 weaned off pressors and ventilator, stepped down to telemetry 11/17 Pseudomonas CLABSI - was on IV meropenem and gentamicin antibiotic lock, unlikely to clear this organism. HD catheter removed 11/19 and then plan was for repeat BCx 11/20 am but pt refused. Pt agreed 11/20 pm but refused again. Counseled extensively on dire consequences of not documenting clear bloodstream so that she can get a replacement tunnel HD catheter. Psych consulted. Pt finally agreed to have BCx done and they were sent 11/21 afternoon. If clear, will place tunnel HD 11/25 and plan 14d of cefepime 2g IV p HD per ID. Continue IV meropenem for now. chronic foot wounds - per Wound Care: Elevate heels off of bed surface with heel protector boots. Cleanse with Betadine. Cover wound beds with dry ABD pad and gauze wrap. Change daily. acute/chronic respiratory failure due to Covid-19 pneumonia - completed 10d of dexamethasone 11/11-11/21; d/c isolation acute toxic-metabolic encephalopathy - resolved cardiogenic shock - resolved; continue carvedilol + hydralazine for HTN ESRD - HD TuThSa as per Nephrology but note pt has historically not gone to HD on Saturdays as outpt. Last HD was 11/19 - will check BMP now; if needs emergency HD will need temporary catheter anemia of ESRD - monitor H+H DM2 - muna-dose lispro VTE ppx - UFH dispo - PT eval refused by pt In my clinical judgment, the patient requires continued inpatient hospitalization for the following reasons: IV ABX, CLABSI, HD access Total time managing care of this patient today: 35 minutes. Quality Stroke Does the patient have a stroke diagnosis?: No VTE Prior VTE?: No VTE Risk Level:: Medical - moderate - high VTE Device Contraindication: Treatment Not Indicated VTE Drug Contraindication: N/A - Med Ordered
--- NOTE | 2023-11-23 10:50 | MHC.CLN ---
F/U PO INTAKE 75-100% DIET RX: 1800DM-APPROPRIATE PT CONTINUES TO BE RESISTIVE TO CARE AND REFUSES MEDS MONITOR PO INTAKE CLOSELY
[2023-11-23 11:19] LABS: Glucose, Whole Blood 111 mg/dL (60-115)
[2023-11-23 11:27] LABS: Anion Gap 21 (12-20); Blood Urea Nitrogen 104 mg/dL (9-16); Calcium 7.2 mg/dL (8.4-10.2); Carbon Dioxide 17 mmol/L (22-29); Chloride 99 mmol/L (96-108); Creatinine Clr Calc Pharmacy 13.9; Estimated Glomerular Filt Rate 8; Glucose Random 74 mg/dL (60-115); Potassium 4.3 mmol/L (3.3-5.1); Sodium 133 mmol/L (135-145)
[2023-11-23] MEDS: Metoclopramide HCl 10 MG/2 ML VIAL 5 MG IVPUSH (14:05)
--- NOTE | 2023-11-23 15:20 | MHC.CM.PN ---
EMR reviewed and per MD rounds, pt is not medically cleared for discharge today with blood cultures pending, anticipating pt will discharge on Saturday 11/25.
--- NOTE | 2023-11-23 15:42 | PC.NURSE ---
Patient complaining of 10/10 pain, Dilaudid given at 1405. Patient sill complaining of pain at 1545 and states that the medication did not work for her. Patient was offered oxycodone and Tylenol but refused. Patient also refusing to let staff take vitals and refusing other PO medications
--- NOTE | 2023-11-23 17:10 | PC.NURSE ---
Patient stating that she wants to be left alone and refusing to have blood sugar checked prior to dinner. All other needs met at this time, call moore within reach
[2023-11-23] MEDS: carvediloL 12.5 MG TABLET PO (21:51)
[2023-11-23] MEDS: diphenhydrAMINE HCL 25 MG CAPSULE PO (21:51)
[2023-11-23 22:10] LABS: Glucose, Whole Blood 101 mg/dL (60-115)
[2023-11-24 04:00] VITALS: BP 159/75; PULSE 84; RESP 20; TEMP 36.6; O2SAT 100
[2023-11-24 06:38] VITALS: RESP 16
[2023-11-24] MEDS: HYDROmorphone HCl 0.5 MG/0.5 ML SYRINGE 0.25 MG IVPUSH (06:38)
[2023-11-24 08:00] VITALS: BP 169/79; PULSE 89; RESP 20; TEMP 36.4; O2SAT 99
[2023-11-24] MEDS: carvediloL 12.5 MG TABLET PO (09:30)
[2023-11-24] MEDS: hydrALAZINE HCl 50 MG TABLET PO (09:30)
[2023-11-24] MEDS: Chlorhexidine Gluc Oral Rinse 15 ML MOUTHWASH BUCCAL ×2 (09:31→22:18)
--- NOTE | 2023-11-24 10:27 | P.PNIM_ITS ---
Subjective Subjective Date of Service: 11/24/23 Interval History: no fever BCx thus far negative; awaiting to clearance to re-place tunnel HD cath last HD 11/19 Review of Systems Review of Systems: Yes all other systems are reviewed and are negative Physical Exam 2 Vital Signs: Vital Signs: Last Vital Signs Temp 97.5 F 11/24/23 08:00 Pulse 89 11/24/23 08:00 Resp 20 11/24/23 08:00 BP 169/79 H 11/24/23 08:00 Pulse Ox 99 11/24/23 08:00 O2 Del Method Nasal Cannula 11/24/23 08:00 O2 Flow Rate 2.5 11/24/23 08:00 FiO2 21 11/17/23 14:00 BMI result Body Mass Index 30.6 Gen: chronically ill, blind HEENT: sclera anicteric, moist mucus membranes Neck: supple Lungs: clear to auscultation bilaterally Heart: regular rate and rhythm, no murmurs Abd: soft, non-tender, non-distended Ext: no edema, R TMA, L TMA Skin: warm/well-perfused, dry ulcers on both TMA stumps Neuro: alert and oriented x3, no focal findings Psych: appropriate affect Objective Data Active Medications Acetaminophen (Acetaminophen 325 Mg Tablet) 975 mg PO Q6H PRN PRN Reason: Pain, Mild (Pain Scale 1-3), fever or headache Last Admin: 11/15/23 16:32 Dose: 975 mg Documented By: KESHAV Albuterol Sulfate (Albuterol Sulfate (0.083%) 2.5 Mg/3 Ml Vial.Neb) 2.5 mg INHALE Q3H PRN PRN Reason: Wheezing Carvedilol (Carvedilol 12.5 Mg Tablet) 12.5 mg PO BID [facility]; Protocol Last Admin: 11/24/23 09:30 Dose: 12.5 mg Documented By: YUE Chlorhexidine Gluconate (Chlorhexidine Gluc Oral Rinse 15 Ml Mouthwash) 15 ml BUCCAL TID [facility] Last Admin: 11/24/23 09:31 Dose: 15 ml Documented By: YUE Diphenhydramine HCl (Diphenhydramine Hcl 25 Mg Capsule) 25 mg PO Q8H PRN PRN Reason: Itching Last Admin: 11/23/23 21:51 Dose: 25 mg Documented By: BUZZ Glucose (Glucose Gel 15 Gm Gel..Gram.) 15 gm PO Q15M PRN; Protocol PRN Reason: per Hypoglycemia Standing Ord. Last Admin: 11/23/23 07:49 Dose: 15 gm Documented By: RAFAEL Heparin Sodium (Porcine) (Heparin Sodium,Porcine 5,000 Unit/Ml Vial) 5,000 unit SUBCUT Q12H [facility] Last Admin: 11/24/23 09:38 Dose: Not Given Documented By: YUE Non-Admin Reason: Patient Refused Hydralazine HCl (Hydralazine Hcl 50 Mg Tablet) 50 mg PO Q8H [facility]; Protocol Last Admin: 11/24/23 09:30 Dose: 50 mg Documented By: YUE Hydromorphone HCl (Hydromorphone Hcl 0.5 Mg/0.5 Ml Syringe) 0.25 mg IVPUSH Q6H PRN; Protocol PRN Reason: Pain, Severe (Pain Scale 7-10) Last Admin: 11/24/23 06:38 Dose: 0.25 mg Documented By: BUZZ Dextrose (D10) 250 mls @ 750 mls/hr IV Q15M PRN PRN Reason: per Hypoglycemia Standing Ord. Insulin Human Lispro (Insulin Lispro 100 Unit/Ml 3 Ml Vial) 0 unit SUBCUT QIDACHS [facility]; Protocol Last Admin: 11/24/23 07:53 Dose: Not Given Documented By: YOLIS Non-Admin Reason: PT refused POC Labetalol HCl (Labetalol Hcl 100 Mg/20 Ml Vial) 20 mg IVPUSH Q10M PRN PRN Reason: SBP > 160 Last Admin: 11/21/23 11:44 Dose: 20 mg Documented By: NETO Metoclopramide HCl (Metoclopramide Hcl 10 Mg/2 Ml Vial) 5 mg IVPUSH Q4H PRN PRN Reason: N/V unrelieved by Patricia Last Admin: 11/23/23 14:05 Dose: 5 mg Documented By: RAFAEL Ondansetron HCl (Ondansetron Hcl 4 Mg/2 Ml Vial) 4 mg IVPUSH Q4H PRN PRN Reason: Nausea and Vomiting Last Admin: 11/21/23 20:19 Dose: 4 mg Documented By: BRENDAN Polyethylene Glycol (Polyethylene Glycol 3350 17 Gm Powd.Pack) 17 gm PO DAILY [facility] Last Admin: 11/24/23 09:40 Dose: Not Given Documented By: YUE Non-Admin Reason: Patient Refused Sodium Chloride (0.9 % Sodium Chloride Flush 3 Ml Syringe) 3 ml IVFLUSH QSHIFT [facility] Last Admin: 11/24/23 04:46 Dose: Not Given Documented By: BUZZ Non-Admin Reason: Previously Administered Labs 11/20/23 08:00 11/23/23 10:30 Labs: Laboratory Results - last 24 hr 11/23/23 11/23/23 11/23/23 10:30 11:16 21:57 Anion Gap 21 H Estim Creat Clear Calc 13.9 Estimated GFR 8 POC Glucose 111 101 Random Glucose 74 Calcium 7.2 L Microbiology Microbiology Results: Microbiology 11/22/23 15:56 Blood Culture - Preliminary Blood - Venous No growth after 24 hours. 11/22/23 15:56 Blood Culture - Preliminary Blood - Venous No growth after 24 hours. 11/20/23 13:15 Catheter Tip Culture - Final Catheter Tip - Other Riddhi albicans Assessment and Plan (1) CLABSI (central line-associated bloodstream infection): Status: Acute Plan d15 33yo F with ESRD on HD TuThSa [though refuses to go Sa], repeated hospitalizations due to nonadherence with HD, DM retinopathy with blindness, PVD s/p bilateral TMA, poorly controlled HTN due to nonadherence, chronic hypoxic respiratory failure, HFrEF, mood disorder, chronic pain initially admitted to hospitalist service after falling and missing HD but then became hypotensive without response to colloid resuscitation and hypoxia transferred to ICU for shock [determined due to sepsis and cardiogenic] and respiratory failure found to have Covid-19 infection and persistent Pseudomonas bacteremia intubated 11/11-11/16 weaned off pressors and ventilator, stepped down to telemetry 11/17 Pseudomonas CLABSI - was on IV meropenem and gentamicin antibiotic lock, unlikely to clear this organism. HD catheter removed 11/19 and then plan was for repeat BCx 11/20 am but pt refused. Pt agreed 11/20 pm but refused again. Counseled extensively on dire consequences of not documenting clear bloodstream so that she can get a replacement tunnel HD catheter. Psych consulted. Pt finally agreed to have BCx done and they were sent 11/21 afternoon. If clear [48hr will be this afternoon], will place tunnel HD 11/25 and plan 14d of cefepime 2g IV p HD per ID. Continue IV meropenem for now. Discuss with ID finding of 85 CFU of Riddhi albicans on cathter tip that was removed and cultured chronic foot wounds - per Wound Care: Elevate heels off of bed surface with heel protector boots. Cleanse with Betadine. Cover wound beds with dry ABD pad and gauze wrap. Change daily. - d/c IV hydromorphone, give PO oxycodone prn acute/chronic respiratory failure due to Covid-19 pneumonia - completed 10d of dexamethasone 11/11-11/21; d/c'ed isolation; on home O2 3L acute toxic-metabolic encephalopathy - resolved cardiogenic shock - resolved; continue carvedilol + hydralazine for HTN ESRD - HD TuThSa as per Nephrology but note pt has historically not gone to HD on Saturdays as outpt. Last HD was 11/19 - will check BMP now; if needs emergency HD will need temporary catheter anemia of ESRD - monitor H+H DM2 - muna-dose lispro VTE ppx - UFH dispo - PT eval refused by pt In my clinical judgment, the patient requires continued inpatient hospitalization for the following reasons: IV ABX, CLABSI, HD access Total time managing care of this patient today: 35 minutes. Quality Stroke Does the patient have a stroke diagnosis?: No VTE Prior VTE?: No VTE Risk Level:: Medical - moderate - high VTE Device Contraindication: Treatment Not Indicated VTE Drug Contraindication: N/A - Med Ordered
[2023-11-24 11:18] LABS: Glucose, Whole Blood 144 mg/dL (60-115)
[2023-11-24] MEDS: 0.9 % Sodium Chloride Flush 3 ML SYRINGE IVFLUSH (12:40)
[2023-11-24 16:51] LABS: Glucose, Whole Blood 106 mg/dL (60-115)
[2023-11-24 19:34] VITALS: BP 148/70; PULSE 94; RESP 16; TEMP 36.6; O2SAT 100
[2023-11-24 22:24] LABS: Glucose, Whole Blood 133 mg/dL (60-115)
[2023-11-25] VITALS (7 sets, daily range): BP systolic 136–177; BP diastolic 60–88; PULSE 83–91; RESP 14–20; TEMP 36.1–36.8; O2SAT 100
[2023-11-25] MEDS: Labetalol HCL 100 MG/20 ML VIAL 20 MG IVPUSH (01:09)
[2023-11-25] MEDS: 0.9 % Sodium Chloride Flush 3 ML SYRINGE IVFLUSH ×3 (01:11→17:51)
[2023-11-25 07:28] LABS: Glucose, Whole Blood 123 mg/dL (60-115)
[2023-11-25] MEDS: Chlorhexidine Gluc Oral Rinse 15 ML MOUTHWASH BUCCAL (09:33)
[2023-11-25] MEDS: carvediloL 12.5 MG TABLET PO (09:33)
[2023-11-25] MEDS: hydrALAZINE HCl 50 MG TABLET PO (09:33)
--- NOTE | 2023-11-25 10:46 | HO.PM.IMPN ---
Subjective Subjective Date of Service: 11/25/23 Interval History: Blood cultures negative No fever/chills Refused labs yesterday Review of Systems Review of Systems: Yes all other systems are reviewed and are negative Physical Exam Vital Signs: Vital Signs: Last Vital Signs Temp 98.2 F 11/25/23 07:59 Pulse 88 11/25/23 07:59 Resp 16 11/25/23 07:59 BP 136/60 11/25/23 07:59 Pulse Ox 100 11/25/23 07:59 O2 Del Method Nasal Cannula 11/25/23 07:59 O2 Flow Rate 2 11/25/23 07:59 FiO2 21 11/17/23 14:00 BMI result Body Mass Index 30.6 Gen: chronically ill, blind HEENT: sclera anicteric, moist mucus membranes Neck: supple Lungs: clear to auscultation bilaterally Heart: regular rate and rhythm, no murmurs Abd: soft, non-tender, non-distended Ext: no edema, R TMA, L TMA Skin: warm/well-perfused, dry ulcers on both TMA stumps Neuro: alert and oriented x3, no focal findings Psych: appropriate affect Objective Data Active Medications Acetaminophen (Acetaminophen 325 Mg Tablet) 975 mg PO Q6H PRN PRN Reason: Pain, Mild (Pain Scale 1-3), fever or headache Last Admin: 11/15/23 16:32 Dose: 975 mg Documented By: KESHAV Albuterol Sulfate (Albuterol Sulfate (0.083%) 2.5 Mg/3 Ml Vial.Neb) 2.5 mg INHALE Q3H PRN PRN Reason: Wheezing Carvedilol (Carvedilol 12.5 Mg Tablet) 12.5 mg PO BID [facility]; Protocol Last Admin: 11/25/23 09:33 Dose: 12.5 mg Documented By: YUE Chlorhexidine Gluconate (Chlorhexidine Gluc Oral Rinse 15 Ml Mouthwash) 15 ml BUCCAL TID [facility] Last Admin: 11/25/23 09:33 Dose: 15 ml Documented By: YUE Diphenhydramine HCl (Diphenhydramine Hcl 25 Mg Capsule) 25 mg PO Q8H PRN PRN Reason: Itching Last Admin: 11/23/23 21:51 Dose: 25 mg Documented By: BUZZ Glucose (Glucose Gel 15 Gm Gel..Gram.) 15 gm PO Q15M PRN; Protocol PRN Reason: per Hypoglycemia Standing Ord. Last Admin: 11/23/23 07:49 Dose: 15 gm Documented By: RAFAEL Heparin Sodium (Porcine) (Heparin Sodium,Porcine 5,000 Unit/Ml Vial) 5,000 unit SUBCUT Q12H [facility] Last Admin: 11/25/23 09:32 Dose: Not Given Documented By: YUE Non-Admin Reason: Patient Refused Hydralazine HCl (Hydralazine Hcl 50 Mg Tablet) 50 mg PO Q8H [facility]; Protocol Last Admin: 11/25/23 09:33 Dose: 50 mg Documented By: YUE Dextrose (D10) 250 mls @ 750 mls/hr IV Q15M PRN PRN Reason: per Hypoglycemia Standing Ord. Insulin Human Lispro (Insulin Lispro 100 Unit/Ml 3 Ml Vial) 0 unit SUBCUT QIDACHS [facility]; Protocol Last Admin: 11/25/23 07:36 Dose: Not Given Documented By: YOLIS Non-Admin Reason: No Insulin Coverage Labetalol HCl (Labetalol Hcl 100 Mg/20 Ml Vial) 20 mg IVPUSH Q10M PRN PRN Reason: SBP > 160 Last Admin: 11/25/23 01:09 Dose: 20 mg Documented By: BUZZ Comments: pt refusing schedule PO hydralazine. accepts prn labetalol for systolic >160 Metoclopramide HCl (Metoclopramide Hcl 10 Mg/2 Ml Vial) 5 mg IVPUSH Q4H PRN PRN Reason: N/V unrelieved by Patricia Last Admin: 11/23/23 14:05 Dose: 5 mg Documented By: RAFAEL Ondansetron HCl (Ondansetron Hcl 4 Mg/2 Ml Vial) 4 mg IVPUSH Q4H PRN PRN Reason: Nausea and Vomiting Last Admin: 11/21/23 20:19 Dose: 4 mg Documented By: BRENDAN Oxycodone HCl (Oxycodone Hcl Immed Release 5 Mg Tablet) 10 mg PO Q6H PRN PRN Reason: pain,severe Polyethylene Glycol (Polyethylene Glycol 3350 17 Gm Powd.Pack) 17 gm PO DAILY [facility] Last Admin: 11/25/23 09:33 Dose: Not Given Documented By: YUE Non-Admin Reason: Patient Refused Sodium Chloride (0.9 % Sodium Chloride Flush 3 Ml Syringe) 3 ml IVFLUSH QSHIFT [facility] Last Admin: 11/25/23 09:40 Dose: 3 ml Documented By: YUE Labs 11/20/23 08:00 11/23/23 10:30 Labs: Laboratory Results - last 24 hr 11/24/23 11/24/23 11/24/23 11:13 16:47 22:15 POC Glucose 144 H 106 133 H 11/25/23 07:24 POC Glucose 123 H Microbiology Microbiology Results: Microbiology 11/22/23 15:56 Blood Culture - Preliminary Blood - Venous No growth after 48 hours. 11/22/23 15:56 Blood Culture - Preliminary Blood - Venous No growth after 48 hours. Assessment and Plan (1) CLABSI (central line-associated bloodstream infection): Status: Acute Plan d16 33yo F with ESRD on HD TuThSa [though refuses to go on Sa], repeated hospitalizations due to nonadherence with HD, DM retinopathy with blindness, PVD s/p bilateral TMA, poorly controlled HTN due to noncompliance, chronic hypoxic respiratory failure, HFrEF, mood disorder, chronic pain initially admitted to hospitalist service after falling and missing HD but then became hypoxica nd hypotensive without response to colloid resuscitation transferred to ICU for shock [determined due to sepsis and cardiogenic] and respiratory failure found to have Covid-19 infection and persistent Pseudomonas bacteremia intubated 11/11-11/16 weaned off pressors and ventilator, stepped down to telemetry 11/17 Pseudomonas CLABSI - was on IV meropenem and gentamicin antibiotic lock; unlikely to clear this organism using this strategy. HD catheter removed 11/19 and then plan was for repeat BCx 11/20 am but pt refused. Pt agreed 11/20 pm but refused again. Counseled extensively on dire consequences of not documenting clear bloodstream so that she can get a replacement tunnel HD catheter. Psych consulted. Pt finally agreed to have BCx done and they were sent 11/21 afternoon and are clear. Will place tunnel HD 11/25 and plan 14d of cefepime 2g IV p HD per ID. Continue IV meropenem for now. Discussed with ID finding of 85 CFU of Riddhi albicans on cathter tip that was removed and cultured- no yeast in blood so this is likely a colonizer, not a pathogen chronic foot wounds - per Wound Care: Elevate heels off of bed surface with heel protector boots. Cleanse with Betadine. Cover wound beds with dry ABD pad and gauze wrap. Change daily. - d/c IV hydromorphone, give PO oxycodone prn acute/chronic respiratory failure due to Covid-19 pneumonia - completed 10d of dexamethasone 11/11-11/21; d/c'ed isolation; on home O2 3L acute toxic-metabolic encephalopathy - resolved cardiogenic shock - resolved; continue carvedilol + hydralazine for HTN ESRD - HD TuThSa as per Nephrology but note pt has historically not gone to HD on Saturdays as outpt. Last HD was 11/19 - will check BMP now; if needs emergency HD will need temporary catheter anemia of ESRD - monitor H+H DM2 - muna-dose lispro VTE ppx - UFH dispo - PT eval refused by pt In my clinical judgment, the patient requires continued inpatient hospitalization for the following reasons: IV ABX, CLABSI, HD access Total time managing care of this patient today: 35 minutes. Quality Stroke Does the patient have a stroke diagnosis?: No VTE Prior VTE?: No VTE Risk Level:: Medical - moderate - high VTE Device Contraindication: Treatment Not Indicated VTE Drug Contraindication: N/A - Med Ordered
[2023-11-25 11:13] LABS: Glucose, Whole Blood 128 mg/dL (60-115)
[2023-11-25 16:39] LABS: Glucose, Whole Blood 120 mg/dL (60-115)
--- NOTE | 2023-11-26 06:23 | PC.NURSE ---
Patient refused all her PM medication and care. Safety maintained.
[2023-11-26 08:00] VITALS: BP 159/74; PULSE 82; RESP 16; TEMP 36.6; O2SAT 100
--- NOTE | 2023-11-26 08:04 | PC.NURSE ---
Pt refusing all morning meds and care, stating it is because she wants to eat.
--- NOTE | 2023-11-26 12:15 | PM.PROC ---
Brief Operative Note Date of procedure: 11/26/23 Pre-op diagnosis: needs [facility] access for HD Post-op diagnosis: same Procedure: Left IJ, 27 cm permacath placed using US and FL. Tip in right atrium. Ok for use. No immediate complications.
[2023-11-26] MEDS: HYDROmorphone HCl 0.5 MG/0.5 ML SYRINGE IVPUSH ×3 (12:53→23:52)
[2023-11-26 16:00] VITALS: RESP 19
--- NOTE | 2023-11-26 16:02 | MHC.CM.PN ---
EMR reviewed and per MD rounds, pt is not medically cleared for discharge due to permacath being placed today.
--- NOTE | 2023-11-26 17:03 | P.PNIM_ITS ---
Subjective Subjective Date of Service: 11/26/23 Interval History: No acute issues overnight. Pain control poor Review of Systems Denies chest pain Denies shortness of breath Denies nausea vomiting diarrhea Denies fever chills Physical Exam 2 Vital Signs: Vital Signs: Last Vital Signs Temp 98 F 11/26/23 08:00 Pulse 82 11/26/23 08:00 Resp 16 11/26/23 08:00 BP 159/74 H 11/26/23 08:00 Pulse Ox 100 11/26/23 08:00 O2 Del Method Nasal Cannula 11/26/23 08:00 O2 Flow Rate 2 11/26/23 08:00 FiO2 21 11/17/23 14:00 BMI result Body Mass Index 30.6 Const: Other: Awake alert no acute distress Chest: Other: Tunneled catheter site clean dry and intact Resp: Other: Clear to auscultation bilaterally no rales rhonchi or wheezes Cardio: Other: Soft nontender nondistended normoactive bowel sounds Extrem: Other: No edema bilaterally Objective Data Active Medications Acetaminophen (Acetaminophen 325 Mg Tablet) 975 mg PO Q6H PRN PRN Reason: Pain, Mild (Pain Scale 1-3), fever or headache Last Admin: 11/15/23 16:32 Dose: 975 mg Documented By: KESHAV Albuterol Sulfate (Albuterol Sulfate (0.083%) 2.5 Mg/3 Ml Vial.Neb) 2.5 mg INHALE Q3H PRN PRN Reason: Wheezing Carvedilol (Carvedilol 12.5 Mg Tablet) 12.5 mg PO BID [facility]; Protocol Last Admin: 11/26/23 08:05 Dose: Not Given Documented By: NETO Non-Admin Reason: Patient Refused Chlorhexidine Gluconate (Chlorhexidine Gluc Oral Rinse 15 Ml Mouthwash) 15 ml BUCCAL TID [facility] Last Admin: 11/26/23 14:14 Dose: Not Given Documented By: NETO Non-Admin Reason: Patient Refused Diphenhydramine HCl (Diphenhydramine Hcl 25 Mg Capsule) 25 mg PO Q8H PRN PRN Reason: Itching Last Admin: 11/23/23 21:51 Dose: 25 mg Documented By: BUZZ Glucose (Glucose Gel 15 Gm Gel..Gram.) 15 gm PO Q15M PRN; Protocol PRN Reason: per Hypoglycemia Standing Ord. Last Admin: 11/23/23 07:49 Dose: 15 gm Documented By: RAFAEL Heparin Sodium (Porcine) (Heparin Sodium,Porcine 5,000 Unit/Ml Vial) 5,000 unit SUBCUT Q12H [facility] Last Admin: 11/26/23 08:05 Dose: Not Given Documented By: NETO Non-Admin Reason: Patient Refused Hydralazine HCl (Hydralazine Hcl 50 Mg Tablet) 50 mg PO Q8H [facility]; Protocol Last Admin: 11/26/23 08:06 Dose: Not Given Documented By: NETO Non-Admin Reason: Patient Refused Hydromorphone HCl (Hydromorphone Hcl 0.5 Mg/0.5 Ml Syringe) 0.5 mg IVPUSH Q4H PRN; Protocol PRN Reason: Pain, Severe (Pain Scale 7-10) Last Admin: 11/26/23 12:53 Dose: 0.5 mg Documented By: NETO Dextrose (D10) 250 mls @ 750 mls/hr IV Q15M PRN PRN Reason: per Hypoglycemia Standing Ord. Insulin Human Lispro (Insulin Lispro 100 Unit/Ml 3 Ml Vial) 0 unit SUBCUT QIDACHS [facility]; Protocol Last Admin: 11/26/23 16:31 Dose: Not Given Documented By: CHAKA Non-Admin Reason: No Insulin Coverage Labetalol HCl (Labetalol Hcl 100 Mg/20 Ml Vial) 20 mg IVPUSH Q10M PRN PRN Reason: SBP > 160 Last Admin: 11/25/23 01:09 Dose: 20 mg Documented By: BUZZ Comments: pt refusing schedule PO hydralazine. accepts prn labetalol for systolic >160 Metoclopramide HCl (Metoclopramide Hcl 10 Mg/2 Ml Vial) 5 mg IVPUSH Q4H PRN PRN Reason: N/V unrelieved by Patricia Last Admin: 11/23/23 14:05 Dose: 5 mg Documented By: RAFAEL Ondansetron HCl (Ondansetron Hcl 4 Mg/2 Ml Vial) 4 mg IVPUSH Q4H PRN PRN Reason: Nausea and Vomiting Last Admin: 11/21/23 20:19 Dose: 4 mg Documented By: BRENDAN Oxycodone HCl (Oxycodone Hcl Immed Release 5 Mg Tablet) 10 mg PO Q6H PRN PRN Reason: pain,severe Polyethylene Glycol (Polyethylene Glycol 3350 17 Gm Powd.Pack) 17 gm PO DAILY [facility] Last Admin: 11/26/23 08:05 Dose: Not Given Documented By: NETO Non-Admin Reason: Patient Refused Sodium Chloride (0.9 % Sodium Chloride Flush 3 Ml Syringe) 3 ml IVFLUSH QSHIFT [facility] Last Admin: 11/26/23 16:31 Dose: Not Given Documented By: CHAKA Non-Admin Reason: in dialysis Labs 11/20/23 08:00 11/23/23 10:30 Microbiology Microbiology Results: Microbiology 11/22/23 15:56 Blood Culture - Preliminary Blood - Venous No growth after 48 hours. Assessment and Plan (1) CLABSI (central line-associated bloodstream infection): Status: Acute (2) Acute hypoxemic respiratory failure: Status: Acute Plan 33yo F with ESRD on HD TuThSa [though refuses to go on Sa], repeated hospitalizations due to nonadherence with HD, DM retinopathy with blindness, PVD s/p bilateral TMA, poorly controlled HTN due to noncompliance, chronic hypoxic respiratory failure, HFrEF, mood disorder, chronic pain; initially admitted to hospitalist service after falling and missing HD but then became hypoxica nd hypotensive without response to colloid resuscitation transferred to ICU for shock [determined due to sepsis and cardiogenic] and respiratory failure;found to have Covid-19 infection and persistent Pseudomonas bacteremia...intubated 11/11-11/16...weaned off pressors and ventilator, stepped down to telemetry 11/17 1.Pseudomonas CLABSI -tunnel catheter replaced today -cefepime 2 g IV after HD times 14 days -blood cultures negative as of 11/26/23 2.Chronic foot wounds - per Wound Care: Elevate heels off of bed surface with heel protector boots. Cleanse with Betadine. Cover wound beds with dry ABD pad and gauze wrap. Change daily. -hydromorphone/oxycodone prn 3.Acute/chronic respiratory failure due to Covid-19 pneumonia - completed 10d of dexamethasone 11/11-11/21; -resolved 4.ESRD -HD as per renal -follow renal/divalents 5.DM2 -lispro correctional scale -adjust as indicated Heparin Full code In my clinical judgment, the patient requires continued inpatient hospitalization for the following reasons: IV ABX, CLABSI, HD access Quality Stroke Does the patient have a stroke diagnosis?: No VTE Prior VTE?: No VTE Risk Level:: Medical - moderate - high VTE Device Contraindication: Treatment Not Indicated VTE Drug Contraindication: N/A - Med Ordered
[2023-11-26] MEDS: 0.9 % Sodium Chloride Flush 3 ML SYRINGE IVFLUSH ×2 (18:07→21:28)
[2023-11-26 20:00] VITALS: BP 191/93; PULSE 94; RESP 20; TEMP 37; O2SAT 100
[2023-11-26] MEDS: carvediloL 12.5 MG TABLET PO (21:27)
[2023-11-26 21:28] LABS: Glucose, Whole Blood 149 mg/dL (60-115)
[2023-11-26] MEDS: Chlorhexidine Gluc Oral Rinse 15 ML MOUTHWASH BUCCAL (21:28)
[2023-11-26 23:46] VITALS: BP 163/78; PULSE 90; RESP 18; TEMP 36.8; O2SAT 100
[2023-11-27] VITALS (9 sets, daily range): BP systolic 144–165; BP diastolic 70–78; PULSE 84–101; RESP 15–20; TEMP 36.4–36.7; O2SAT 97–100
[2023-11-27] MEDS: HYDROmorphone HCl 0.5 MG/0.5 ML SYRINGE IVPUSH ×4 (05:58→18:01)
[2023-11-27 07:31] LABS: Glucose, Whole Blood 85 mg/dL (60-115)
[2023-11-27] MEDS: polyethylene glycoL 3350 17 GM POWD.PACK PO (07:48)
[2023-11-27] MEDS: Metoclopramide HCl 10 MG/2 ML VIAL 5 MG IVPUSH ×2 (07:57→18:01)
[2023-11-27 09:59] LABS: MANUAL DIFF FLAG NO
[2023-11-27 10:02] LABS: Basophils Percent Auto 0.3 % (0-2); Eosinophils Absolute Auto 0.1 X10*3/uL (0.0-0.4); Eosinophils Percent Auto 2.7 % (0-4); Imm Gran Abs Auto 0.03 X10*3/uL (0.00-0.03); Imm Gran Pct Auto 0.9 % (0.0-0.4); Lymphocytes Absolute Auto 0.4 X10*3/uL (1.2-4.9); Lymphocytes Percent Auto 10.4 % (20-40); Mean Corpuscular HGB Conc 32.5 g/dl (31.0-35.0); Mean Corpuscular Hemoglobin 29.5 pg (27.0-33.0); Mean Platelet Volume 12.3 fL (9.4-12.3); Monocytes Absolute Auto 0.6 X10*3/uL (0.1-1.2); Neutrophils Absolute Auto 2.3 x10*3/uL (2.0-8.3); Neutrophils Percent Auto 66.7 % (45-73); Platelet Count 166 X10*3/uL (160-400); Red Cell Distribution Width 17.7 % (11.0-16.0); White Blood Count 3.4 X10*3/uL (4.8-10.8)
[2023-11-27 10:26] LABS: Alanine Aminotransferase 8 U/L (0-31); Alkaline Phosphatase 161 U/L (39-117); Anion Gap 16 (12-20); Aspartate Amino Transferase 23 U/L (5-31); Bilirubin Total 1.1 mg/dL (0.0-1.0); Blood Urea Nitrogen 58 mg/dL (9-16); Calcium 7.7 mg/dL (8.4-10.2); Carbon Dioxide 22 mmol/L (22-29); Chloride 101 mmol/L (96-108); Creatinine Clr Calc Pharmacy 17.6; Estimated Glomerular Filt Rate 10; Glucose Fasting 79 mg/dL (60-99); Potassium 3.9 mmol/L (3.3-5.1); Sodium 135 mmol/L (135-145)
[2023-11-27 10:38] LABS: Hemoglobin 6.2 g/dl (12.0-16.0)
[2023-11-27 10:39] LABS: Hematocrit 19.1 % (37.0-47.0)
[2023-11-27 13:06] LABS: Glucose, Whole Blood 76 mg/dL (60-115)
--- NOTE | 2023-11-27 13:55 | HO.WOUND ---
Wound Consult: Follow up 33yr old female? admitted to [facility] [place] on 11/10/23 - See progress notes and H&P for detailed history.? 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 Wound consult follow up for Bilateral lower foot wounds and sacral wound. Patient is out of ICU and remains on Med Tele unit. 10/18/23 Picture from previous admission Left TMA site - resurfaced healed - no topical interventions needed at this time. 11/13/23 11/19/23 11/27/23 Right Plantar Diabetic Wound - dry stable eschar wound bed - Iodosorb to keep dry and stable and allow for antimicrobial properties and break through biofilm. 11/13/23 11/19/23 11/27/23 Right Lateral Diabetic Wound - Diabetic Wound - dry stable scabbed wound bed - Iodosorb to keep dry and stable and allow for antimicrobial properties and break through biofilm. 10/18/23 Photo from last admission 11/13/23 11/19/23 Right Dorsal Diabetic Wound - improving overall dry stable yellow cruz scab wound bed - Iodosorb to keep dry and stable and allow for antimicrobial properties and break through biofilm. 10/18/23 Last Admission 11/13/23 11/19/23 Left Heel - Diabetic Wound - improving overall dry dark stable eschar wound bed - Iodosorb to keep dry and stable and allow for antimicrobial properties and break through biofilm. 10/18/23 Previous admission 11/13/23 11/19/23 11/27/23 Left Plantar Diabetic Wound - improving overall dry dark stable eschar wound bed callused edges - Iodosorb to keep dry and stable and allow for antimicrobial properties and break through biofilm. Etiology: ??Diabetic Wounds with various measurements and in various stages of healing Drainage / Odor: no odor noted - no actue infection noted to any wound to the feet Goals of Treatment: Iodosorb to keep dry and stable and allow for antimicrobial properties and break through biofilm. Sacrococcygeal 11/15/2311/1911/27/23 Etiology: ?Unknown Etiology: Clinical Manifestations of COVID 19 vs thrombocytopenia Wound Bed: In evolution - resurfacing partial thickness tissue loss with pink viable wound bed - thin yellow slough noted Edges: ? irregular and not consistent with pressure given the edges and feathering of dark pigmentation and areas of resolution Pao wound: ?resolving irregular dark pigmentation patterns and observable erythema Goals of Treatment: ? Off Load Pressure and Triad to protect from friction and moisture and allow for moist wound healing. Of note chart review and discussion with staff patient is resistant to care and topical interventions - at bedside open discussion with patient about noncimpliance and benefits of allowing topical interventions to be completed to improve healing. She reports understanding. Triad applied and patient agreeable. No new topical recommendations needed at this time. Recommendations: 1. Turn and Reposition every 2 hours and as needed for patient comfort.? Use pillows or wedges to support off loading positions. 2. Off Load all bony prominences with use of pillows and heel boots if needed.? Apply Preventative foams where needed. ? 3. Monitor for incontinence and moisture control, use barrier creams when needed for prevention and treatment. 4. Provide adequate and supplemental nutrition.? 5. Order or Continue low air loss mattress. 6. When applicable maintain blood glucose levels per Providers order. 7. Bilateral Foot wounds - Elevate heels off of bed surface with heel protector boots. Cleanse with NS, moist gauze. Cover wound beds with Iodosorb (only available from wound nurse) dry ABD pad and gauze wrap. Change every 3 days. . 8. Sacrococcygeal area - Off Load Pressure - Cleanse with PH balance spray or wipes, pat dry. ?Apply thin layer of Triad to wound bed - only pat and dab no scrub and rub when soiling occurs. Reapply thin layer PRN after each episode of incontinence. Re-consult wound care Nurse for wound deterioration or wound changes.
[2023-11-27] MEDS: 0.9 % Sodium Chloride Flush 3 ML SYRINGE IVFLUSH ×2 (14:04→20:11)
--- NOTE | 2023-11-27 15:04 | HO.PM.IMPN ---
Subjective Subjective Date of Service: 11/27/23 Interval History: No acute issues overnight. Hemoglobin 6 this a.m. Review of Systems Denies chest pain Denies shortness of breath Denies nausea vomiting diarrhea Denies fever chills Physical Exam Vital Signs: Vital Signs: Last Vital Signs Temp 97.6 F 11/27/23 14:28 Pulse 101 H 11/27/23 14:28 Resp 20 11/27/23 14:28 BP 144/76 H 11/27/23 14:28 Pulse Ox 100 11/27/23 07:51 O2 Del Method Room Air 11/27/23 07:51 O2 Flow Rate 2 11/27/23 04:00 FiO2 21 11/17/23 14:00 BMI result Body Mass Index 30.6 Const: Other: Awake alert no acute distress Chest: Other: Tunneled catheter site clean dry and intact Resp: Other: Clear to auscultation bilaterally no rales rhonchi or wheezes Cardio: Other: Soft nontender nondistended normoactive bowel sounds Extrem: Other: No edema bilaterally Objective Data Active Medications Acetaminophen (Acetaminophen 325 Mg Tablet) 975 mg PO Q6H PRN PRN Reason: Pain, Mild (Pain Scale 1-3), fever or headache Last Admin: 11/15/23 16:32 Dose: 975 mg Documented By: KESHAV Albuterol Sulfate (Albuterol Sulfate (0.083%) 2.5 Mg/3 Ml Vial.Neb) 2.5 mg INHALE Q3H PRN PRN Reason: Wheezing Carvedilol (Carvedilol 12.5 Mg Tablet) 12.5 mg PO BID [facility]; Protocol Last Admin: 11/27/23 07:51 Dose: Not Given Documented By: ARPIT Non-Admin Reason: Patient Refused Chlorhexidine Gluconate (Chlorhexidine Gluc Oral Rinse 15 Ml Mouthwash) 15 ml BUCCAL TID [facility] Last Admin: 11/27/23 11:31 Dose: Not Given Documented By: ARPIT Non-Admin Reason: Patient Refused Diphenhydramine HCl (Diphenhydramine Hcl 25 Mg Capsule) 25 mg PO Q8H PRN PRN Reason: Itching Last Admin: 11/23/23 21:51 Dose: 25 mg Documented By: BUZZ Glucose (Glucose Gel 15 Gm Gel..Gram.) 15 gm PO Q15M PRN; Protocol PRN Reason: per Hypoglycemia Standing Ord. Last Admin: 11/23/23 07:49 Dose: 15 gm Documented By: RAFAEL Heparin Sodium (Porcine) (Heparin Sodium,Porcine 5,000 Unit/Ml Vial) 5,000 unit SUBCUT Q12H [facility] Last Admin: 11/27/23 07:51 Dose: Not Given Documented By: ARPIT Non-Admin Reason: Patient Refused Hydralazine HCl (Hydralazine Hcl 50 Mg Tablet) 50 mg PO Q8H [facility]; Protocol Last Admin: 11/27/23 11:32 Dose: Not Given Documented By: ARPIT Non-Admin Reason: Patient Refused Hydromorphone HCl (Hydromorphone Hcl 0.5 Mg/0.5 Ml Syringe) 0.5 mg IVPUSH Q4H PRN; Protocol PRN Reason: Pain, Severe (Pain Scale 7-10) Last Admin: 11/27/23 14:04 Dose: 0.5 mg Documented By: ARPIT Dextrose (D10) 250 mls @ 750 mls/hr IV Q15M PRN PRN Reason: per Hypoglycemia Standing Ord. Insulin Human Lispro (Insulin Lispro 100 Unit/Ml 3 Ml Vial) 0 unit SUBCUT QIDACHS [facility]; Protocol Last Admin: 11/27/23 13:20 Dose: Not Given Documented By: ARPIT Non-Admin Reason: No Insulin Coverage Labetalol HCl (Labetalol Hcl 100 Mg/20 Ml Vial) 20 mg IVPUSH Q10M PRN PRN Reason: SBP > 160 Last Admin: 11/25/23 01:09 Dose: 20 mg Documented By: BUZZ Comments: pt refusing schedule PO hydralazine. accepts prn labetalol for systolic >160 Metoclopramide HCl (Metoclopramide Hcl 10 Mg/2 Ml Vial) 5 mg IVPUSH Q4H PRN PRN Reason: N/V unrelieved by Patricia Last Admin: 11/27/23 07:57 Dose: 5 mg Documented By: ARPIT Ondansetron HCl (Ondansetron Hcl 4 Mg/2 Ml Vial) 4 mg IVPUSH Q4H PRN PRN Reason: Nausea and Vomiting Last Admin: 11/21/23 20:19 Dose: 4 mg Documented By: BRENDAN Oxycodone HCl (Oxycodone Hcl Immed Release 5 Mg Tablet) 10 mg PO Q6H PRN PRN Reason: pain,severe Polyethylene Glycol (Polyethylene Glycol 3350 17 Gm Powd.Pack) 17 gm PO DAILY [facility] Last Admin: 11/27/23 07:48 Dose: 17 gm Documented By: ARPIT Sodium Chloride (0.9 % Sodium Chloride Flush 3 Ml Syringe) 3 ml IVFLUSH QSHIFT [facility] Last Admin: 11/27/23 14:04 Dose: 3 ml Documented By: ARPIT Labs 11/27/23 09:20 11/27/23 09:20 Labs: Laboratory Results - last 24 hr 11/26/23 11/27/23 11/27/23 21:23 07:21 09:20 MCV 91.0 MCH 29.5 MCHC 32.5 RDW 17.7 H Plt Count 166 MPV 12.3 Immature Gran % (Auto) 0.9 H Neut % (Auto) 66.7 Lymph % (Auto) 10.4 L [place] % (Auto) 19.0 H Eos % (Auto) 2.7 Baso % (Auto) 0.3 Lymph # (Auto) 0.4 L [place] # (Auto) 0.6 Eos # (Auto) 0.1 Baso # (Auto) 0.0 Abs Immat Gran (auto) 0.03 Absolute Neuts (auto) 2.3 Absolute Nucleated RBC 0.000 Nucleated RBC % (auto) 0.0 Anion Gap 16 Estim Creat Clear Calc 17.6 Estimated GFR 10 POC Glucose 149 H 85 Fasting Glucose 79 Calcium 7.7 L D Total Bilirubin 1.1 H AST 23 ALT 8 Alkaline Phosphatase 161 H Total Protein 6.0 L Albumin 3.0 L Blood Type Antibody Screen Crossmatch 11/27/23 11/27/23 13:01 13:02 MCV MCH MCHC RDW Plt Count MPV Immature Gran % (Auto) Neut % (Auto) Lymph % (Auto) [place] % (Auto) Eos % (Auto) Baso % (Auto) Lymph # (Auto) [place] # (Auto) Eos # (Auto) Baso # (Auto) Abs Immat Gran (auto) Absolute Neuts (auto) Absolute Nucleated RBC Nucleated RBC % (auto) Anion Gap Estim Creat Clear Calc Estimated GFR POC Glucose 76 Fasting Glucose Calcium Total Bilirubin AST ALT Alkaline Phosphatase Total Protein Albumin Blood Type A Positive Antibody Screen NEGATIVE Crossmatch See Detail Microbiology Microbiology Results: Microbiology 11/22/23 15:56 Blood Culture - Preliminary Blood - Venous No growth after 48 hours. Assessment and Plan (1) CLABSI (central line-associated bloodstream infection): Status: Acute (2) Anemia: Status: Acute Plan 33yo F with ESRD on HD TuThSa [though refuses to go on Sa], repeated hospitalizations due to nonadherence with HD, DM retinopathy with blindness, PVD s/p bilateral TMA, poorly controlled HTN due to noncompliance, chronic hypoxic respiratory failure, HFrEF, mood disorder, chronic pain; initially admitted to hospitalist service after falling and missing HD but then became hypoxica nd hypotensive without response to colloid resuscitation transferred to ICU for shock [determined due to sepsis and cardiogenic] and respiratory failure;found to have Covid-19 infection and persistent Pseudomonas bacteremia...intubated 11/11-11/16...weaned off pressors and ventilator, stepped down to telemetry 11/17 1.Pseudomonas CLABSI -tunnel catheter replaced today -cefepime 2 g IV after HD times 14 days -blood cultures negative as of 11/26/23 2. Anemia related to end-stage renal disease -transfuse 2 units packed red cells. -follow daily CBCs 3.Chronic foot wounds - per Wound Care: Elevate heels off of bed surface with heel protector boots. Cleanse with Betadine. Cover wound beds with dry ABD pad and gauze wrap. Change daily. -hydromorphone/oxycodone prn 4.Acute/chronic respiratory failure due to Covid-19 pneumonia - completed 10d of dexamethasone 11/11-11/21; -resolved 5.ESRD -HD as per renal -follow renal/divalents 6.DM2 -lispro correctional scale -adjust as indicated Heparin Full code In my clinical judgment, the patient requires continued inpatient hospitalization for the following reasons: IV ABX, CLABSI, HD access Quality Stroke Does the patient have a stroke diagnosis?: No VTE Prior VTE?: No VTE Risk Level:: Medical - moderate - high VTE Device Contraindication: Treatment Not Indicated VTE Drug Contraindication: N/A - Med Ordered
[2023-11-27 16:20] LABS: Glucose, Whole Blood 104 mg/dL (60-115)
--- NOTE | 2023-11-27 20:54 | PM.PNNEP ---
Subjective Subjective Date of Service: 11/26/23 Interval history: Seen and examined, events noted Physical Exam Vital Signs: Vital Signs: Last Vital Signs Temp 97.5 F 11/27/23 20:03 Pulse 90 11/27/23 20:03 Resp 18 11/27/23 20:03 BP 163/78 H 11/27/23 20:03 Pulse Ox 97 11/27/23 19:14 O2 Del Method Room Air 11/27/23 19:14 O2 Flow Rate 2 11/27/23 04:00 FiO2 21 11/17/23 14:00 BMI result Body Mass Index 30.6 Const: General: cooperative, alert and awake HEENT: Head: Yes normal to inspection, Yes normocephalic and Yes atraumatic Face and sinus: Yes normal facial exam Mouth: Normal oral and palatal mucosa present Teeth and gingiva: dentition normal Eyes: General: appearance normal, both eyes and all related structures Pupils: Equal, round and reactive pupils present Neck: Neck: Yes supple Resp: Other: on ventilator Auscultation: diminished lung sounds Cardio: Rate: regular rate Rhythm: regular rhythm Heart sounds: S1 normal heart sound present and S2 normal heart sound present GI: Palpation (GI): Soft to palpation and nontender : General: Yes no CVA tenderness Back/Spine/Pelvis: Back: no CVA tenderness Skin: General skin exam: no rashes or lesions noted Neuro: General: moves all extremities Cranial nerves: Yes Equal, round and reactive pupils present Extrem: General: Yes normal to inspection and Yes no pedal edema Psych: Appearance: grossly normal Objective Data Labs 11/27/23 09:20 11/27/23 09:20 Labs: Laboratory Results - last 24 hr 11/26/23 11/27/23 11/27/23 21:23 07:21 09:20 WBC 3.4 L RBC 2.10 L D Hgb 6.2 L* D Hct 19.1 L* D MCV 91.0 MCH 29.5 MCHC 32.5 RDW 17.7 H Plt Count 166 MPV 12.3 Immature Gran % (Auto) 0.9 H Neut % (Auto) 66.7 Lymph % (Auto) 10.4 L [place] % (Auto) 19.0 H Eos % (Auto) 2.7 Baso % (Auto) 0.3 Lymph # (Auto) 0.4 L [place] # (Auto) 0.6 Eos # (Auto) 0.1 Baso # (Auto) 0.0 Abs Immat Gran (auto) 0.03 Absolute Neuts (auto) 2.3 Absolute Nucleated RBC 0.000 Nucleated RBC % (auto) 0.0 Sodium 135 Potassium 3.9 Chloride 101 Carbon Dioxide 22 Anion Gap 16 BUN 58 H Creatinine 4.91 H* Estim Creat Clear Calc 17.6 Estimated GFR 10 POC Glucose 149 H 85 Fasting Glucose 79 Calcium 7.7 L D Total Bilirubin 1.1 H AST 23 ALT 8 Alkaline Phosphatase 161 H Total Protein 6.0 L Albumin 3.0 L Blood Type Antibody Screen Crossmatch 11/27/23 11/27/23 11/27/23 13:01 13:02 16:16 WBC RBC Hgb Hct MCV MCH MCHC RDW Plt Count MPV Immature Gran % (Auto) Neut % (Auto) Lymph % (Auto) [place] % (Auto) Eos % (Auto) Baso % (Auto) Lymph # (Auto) [place] # (Auto) Eos # (Auto) Baso # (Auto) Abs Immat Gran (auto) Absolute Neuts (auto) Absolute Nucleated RBC Nucleated RBC % (auto) Sodium Potassium Chloride Carbon Dioxide Anion Gap BUN Creatinine Estim Creat Clear Calc Estimated GFR POC Glucose 76 104 Fasting Glucose Calcium Total Bilirubin AST ALT Alkaline Phosphatase Total Protein Albumin Blood Type A Positive Antibody Screen NEGATIVE Crossmatch See Detail Microbiology Microbiology Results: Microbiology 11/22/23 15:56 Blood - Venous Blood Culture - Final No growth after 5 days. 11/22/23 15:56 Blood - Venous Blood Culture - Preliminary No growth after 48 hours. 11/20/23 13:15 Catheter Tip - Other Catheter Tip Culture - Final Riddhi albicans 11/13/23 08:32 Blood - Subclavian Blood Culture - Final Pseudomonas aeruginosa 11/15/23 11:14 Blood - Central Line Blood Culture - Final Pseudomonas aeruginosa 11/15/23 11:09 Blood - Central Line Blood Culture - Final Pseudomonas aeruginosa 11/15/23 11:38 Trachea Gram Stain - Final 11/15/23 11:38 Trachea Sputum Culture - Final Riddhi albicans 11/13/23 08:32 Blood - Subclavian Blood Culture - Final Pseudomonas aeruginosa 11/12/23 18:12 Leg - Right Gram Stain - Final 11/12/23 18:12 Leg - Right Routine Culture - Final Pseudomonas aeruginosa Escherichia coli Staphylococcus aureus 11/11/23 14:29 Urine clean catch - Clean Catch Midstream Urine Culture - Final No growth. 11/10/23 15:14 Blood - Venous Blood Culture - Final Pseudomonas aeruginosa 11/10/23 15:14 Blood - Venous Blood Culture - Final Pseudomonas aeruginosa Procedures Date of Service Date of Service: 11/27/23 Assessment & Plan Assessment and plan (1) End stage chronic kidney disease: Status: Acute (2) CLABSI (central line-associated bloodstream infection): Status: Acute (3) COVID-19: Status: Acute (4) Anemia: Status: Acute Plan 1. ESRD: usu TTS [place] poorly complaint missing many treatemnts in past HSD today 2. Hemoaccess: new Pcath today (( 11.26.23) 3. ID: [id number] as noted BC + with pseudomonas dialysis catheter removed 4, nephrogenic anemia REC follow blood culture renal diet and make sure low K diet P binders VIPUL per protocol D/C Planning will follow w team Time Spent With Patient Time: Total time managing care of this patient today ____ minutes. Progress Note: Quality Stroke Does the patient have a stroke diagnosis?: No
[2023-11-28] MEDS: HYDROmorphone HCl 0.5 MG/0.5 ML SYRINGE IVPUSH ×5 (03:15→21:05)
[2023-11-28 03:28] VITALS: BP 192/84; PULSE 94; RESP 17; TEMP 36.4; O2SAT 99
[2023-11-28 07:13] LABS: Glucose, Whole Blood 118 mg/dL (60-115)
[2023-11-28 07:14] VITALS: BP 136/63; PULSE 86; RESP 16; TEMP 36.3; O2SAT 96
[2023-11-28] MEDS: 0.9 % Sodium Chloride Flush 3 ML SYRINGE IVFLUSH ×3 (08:20→21:10)
[2023-11-28] MEDS: Chlorhexidine Gluc Oral Rinse 15 ML MOUTHWASH BUCCAL ×3 (08:20→20:58)
[2023-11-28] MEDS: carvediloL 12.5 MG TABLET PO ×2 (10:22→20:58)
[2023-11-28] MEDS: hydrALAZINE HCl 50 MG TABLET PO ×2 (10:22→17:51)
[2023-11-28 11:12] VITALS: BP 157/72; PULSE 85; RESP 16; TEMP 37.3; O2SAT 97
[2023-11-28 11:18] LABS: Glucose, Whole Blood 103 mg/dL (60-115)
[2023-11-28] MEDS: ondansetron HCL 4 MG/2 ML VIAL IVPUSH ×2 (12:33→23:28)
--- NOTE | 2023-11-28 13:29 | P.PNIM_ITS ---
Subjective Subjective Date of Service: 11/28/23 Interval History: No acute issues overnight. Still complaining of general weakness since admission Review of Systems Denies chest pain Denies shortness of breath Denies nausea vomiting diarrhea Denies fever chills Physical Exam 2 Vital Signs: Vital Signs: Last Vital Signs Temp 99.2 F 11/28/23 11:12 Pulse 85 11/28/23 11:12 Resp 16 11/28/23 11:12 BP 157/72 H 11/28/23 11:12 Pulse Ox 97 11/28/23 11:12 O2 Del Method Room Air 11/28/23 11:12 O2 Flow Rate 2 11/27/23 04:00 FiO2 21 11/17/23 14:00 BMI result Body Mass Index 30.6 Const: Other: Awake alert no acute distress Chest: Other: Tunneled catheter site clean dry and intact Resp: Other: Clear to auscultation bilaterally no rales rhonchi or wheezes Cardio: Other: Soft nontender nondistended normoactive bowel sounds Extrem: Other: No edema bilaterally Objective Data Active Medications Acetaminophen (Acetaminophen 325 Mg Tablet) 975 mg PO Q6H PRN PRN Reason: Pain, Mild (Pain Scale 1-3), fever or headache Last Admin: 11/15/23 16:32 Dose: 975 mg Documented By: KESHAV Albuterol Sulfate (Albuterol Sulfate (0.083%) 2.5 Mg/3 Ml Vial.Neb) 2.5 mg INHALE Q3H PRN PRN Reason: Wheezing Carvedilol (Carvedilol 12.5 Mg Tablet) 12.5 mg PO BID [facility]; Protocol Last Admin: 11/28/23 10:22 Dose: 12.5 mg Documented By: DAE Chlorhexidine Gluconate (Chlorhexidine Gluc Oral Rinse 15 Ml Mouthwash) 15 ml BUCCAL TID [facility]AS[facility] Last Admin: 11/28/23 08:20 Dose: 15 ml Documented By: DAE Diphenhydramine HCl (Diphenhydramine Hcl 25 Mg Capsule) 25 mg PO Q8H PRN PRN Reason: Itching Last Admin: 11/23/23 21:51 Dose: 25 mg Documented By: LAFLAMC Glucose (Glucose Gel 15 Gm Gel..Gram.) 15 gm PO Q15M PRN; Protocol PRN Reason: per Hypoglycemia Standing Ord. Last Admin: 11/23/23 07:49 Dose: 15 gm Documented By: RAFAEL Heparin Sodium (Porcine) (Heparin Sodium,Porcine 5,000 Unit/Ml Vial) 5,000 unit SUBCUT Q12H [facility] Last Admin: 11/28/23 08:26 Dose: Not Given Documented By: DAE Non-Admin Reason: Patient Refused Hydralazine HCl (Hydralazine Hcl 50 Mg Tablet) 50 mg PO Q8H [facility]; Protocol Last Admin: 11/28/23 10:22 Dose: 50 mg Documented By: DAE Hydromorphone HCl (Hydromorphone Hcl 0.5 Mg/0.5 Ml Syringe) 0.5 mg IVPUSH Q4H PRN; Protocol PRN Reason: Pain, Severe (Pain Scale 7-10) Last Admin: 11/28/23 12:30 Dose: 0.5 mg Documented By: DAE Dextrose (D10) 250 mls @ 750 mls/hr IV Q15M PRN PRN Reason: per Hypoglycemia Standing Ord. Insulin Human Lispro (Insulin Lispro 100 Unit/Ml 3 Ml Vial) 0 unit SUBCUT QIDACHS [facility]; Protocol Last Admin: 11/28/23 11:52 Dose: Not Given Documented By: DAE Non-Admin Reason: No Insulin Coverage Labetalol HCl (Labetalol Hcl 100 Mg/20 Ml Vial) 20 mg IVPUSH Q10M PRN PRN Reason: SBP > 160 Last Admin: 11/25/23 01:09 Dose: 20 mg Documented By: BUZZ Comments: pt refusing schedule PO hydralazine. accepts prn labetalol for systolic >160 Metoclopramide HCl (Metoclopramide Hcl 10 Mg/2 Ml Vial) 5 mg IVPUSH Q4H PRN PRN Reason: N/V unrelieved by Patricia Last Admin: 11/27/23 18:01 Dose: 5 mg Documented By: ARPIT Ondansetron HCl (Ondansetron Hcl 4 Mg/2 Ml Vial) 4 mg IVPUSH Q4H PRN PRN Reason: Nausea and Vomiting Last Admin: 11/28/23 12:33 Dose: 4 mg Documented By: DAE Oxycodone HCl (Oxycodone Hcl Immed Release 5 Mg Tablet) 10 mg PO Q6H PRN PRN Reason: pain,severe Polyethylene Glycol (Polyethylene Glycol 3350 17 Gm Powd.Pack) 17 gm PO DAILY [facility] Last Admin: 11/28/23 08:26 Dose: Not Given Documented By: DAE Non-Admin Reason: Patient Refused Sodium Chloride (0.9 % Sodium Chloride Flush 3 Ml Syringe) 3 ml IVFLUSH QSHIFT [facility] Last Admin: 11/28/23 08:20 Dose: 3 ml Documented By: DAE Labs 11/27/23 09:20 11/27/23 09:20 Labs: Laboratory Results - last 24 hr 11/27/23 11/27/23 11/28/23 13:01 16:16 07:08 POC Glucose 104 118 H Blood Type A Positive Antibody Screen NEGATIVE Crossmatch See Detail 11/28/23 11:12 POC Glucose 103 Blood Type Antibody Screen Crossmatch Microbiology Microbiology Results: Microbiology 11/22/23 15:56 Blood Culture - Final Blood - Venous No growth after 5 days. 11/22/23 15:56 Blood Culture - Final Blood - Venous No growth after 5 days. Assessment and Plan (1) CLABSI (central line-associated bloodstream infection): Status: Acute (2) End stage chronic kidney disease: Status: Acute Plan 33yo F with ESRD on HD TuThSa [though refuses to go on Sa], repeated hospitalizations due to nonadherence with HD, DM retinopathy with blindness, PVD s/p bilateral TMA, poorly controlled HTN due to noncompliance, chronic hypoxic respiratory failure, HFrEF, mood disorder, chronic pain; initially admitted to hospitalist service after falling and missing HD but then became hypoxica nd hypotensive without response to colloid resuscitation transferred to ICU for shock [determined due to sepsis and cardiogenic] and respiratory failure;found to have Covid-19 infection and persistent Pseudomonas bacteremia...intubated 11/11-11/16...weaned off pressors and ventilator, stepped down to telemetry 11/17 1.Pseudomonas CLABSI -tunnel catheter replaced today -cefepime 2 g IV after HD times 14 days(LD 12/10/23) -blood cultures negative as of 11/26/23 2. Anemia related to end-stage renal disease -transfuse 2 units packed red cells. -follow daily CBCs...pending at this time 3.Chronic foot wounds - per Wound Care: Elevate heels off of bed surface with heel protector boots. Cleanse with Betadine. Cover wound beds with dry ABD pad and gauze wrap. Change daily. -hydromorphone/oxycodone prn 4.Acute/chronic respiratory failure due to Covid-19 pneumonia - completed 10d of dexamethasone 11/11-11/21; -resolved 5.ESRD -HD as per renal -follow renal/divalents 6.DM2 -lispro correctional scale -adjust as indicated Heparin Full code In my clinical judgment, the patient requires continued inpatient hospitalization for the following reasons: IV ABX, CLABSI, HD access Quality Stroke Does the patient have a stroke diagnosis?: No VTE Prior VTE?: No VTE Risk Level:: Medical - moderate - high VTE Device Contraindication: Treatment Not Indicated VTE Drug Contraindication: N/A - Med Ordered
--- NOTE | 2023-11-28 13:58 | MHC.CM.PN ---
EMR reviewed and per MD rounds, pt is not medically cleared for discharge due to management of anemia and CLABSI.
[2023-11-28 14:52] LABS: Basophils Percent Auto 0.6 % (0-2); Eosinophils Absolute Auto 0.2 X10*3/uL (0.0-0.4); Eosinophils Percent Auto 4.7 % (0-4); Hematocrit 25.8 % (37.0-47.0); Hemoglobin 8.6 g/dl (12.0-16.0); Imm Gran Abs Auto 0.02 X10*3/uL (0.00-0.03); Imm Gran Pct Auto 0.6 % (0.0-0.4); Lymphocytes Absolute Auto 0.5 X10*3/uL (1.2-4.9); Lymphocytes Percent Auto 14.2 % (20-40); MANUAL DIFF FLAG SCAN; Mean Corpuscular HGB Conc 33.3 g/dl (31.0-35.0); Mean Corpuscular Hemoglobin 29.9 pg (27.0-33.0); Mean Corpuscular Volume 89.6 fL (80.0-98.0); Mean Platelet Volume 12.3 fL (9.4-12.3); Monocytes Absolute Auto 0.9 X10*3/uL (0.1-1.2); Monocytes Percent Auto 24.7 % (2-11); Neutrophils Percent Auto 55.2 % (45-73); Platelet Count 153 X10*3/uL (160-400); Red Blood Count 2.88 X10*6/uL (4.20-5.50); Red Cell Distribution Width 16.5 % (11.0-16.0); SCAN SMEAR FLAG 1; White Blood Count 3.6 X10*3/uL (4.8-10.8)
[2023-11-28 15:06] LABS: Alanine Aminotransferase 6 U/L (0-31); Albumin Level 3.2 g/dL (3.5-5.0); Alkaline Phosphatase 168 U/L (39-117); Anion Gap 16 (12-20); Aspartate Amino Transferase 23 U/L (5-31); Bilirubin Total 1.3 mg/dL (0.0-1.0); Blood Urea Nitrogen 41 mg/dL (9-16); Calcium 8.3 mg/dL (8.4-10.2); Carbon Dioxide 24 mmol/L (22-29); Chloride 100 mmol/L (96-108); Creatinine Clr Calc Pharmacy 20.4; Estimated Glomerular Filt Rate 12; Glucose Random 92 mg/dL (60-115); Potassium 3.8 mmol/L (3.3-5.1); Sodium 136 mmol/L (135-145); Total Protein 6.6 g/dL (6.5-8.0)
[2023-11-28 15:13] VITALS: BP 143/78; PULSE 87; RESP 20; TEMP 37.1; O2SAT 100
[2023-11-28 15:42] LABS: SLIDE REVIEW VERIFIED
[2023-11-28 16:15] LABS: Glucose, Whole Blood 114 mg/dL (60-115)
[2023-11-28 17:47] VITALS: BP 158/75; PULSE 88
[2023-11-28 19:22] VITALS: BP 111/56; PULSE 88; RESP 20; TEMP 37; O2SAT 99
[2023-11-28 20:09] LABS: Glucose, Whole Blood 114 mg/dL (60-115)
[2023-11-29] MEDS: HYDROmorphone HCl 0.5 MG/0.5 ML SYRINGE IVPUSH ×3 (01:15→10:30)
[2023-11-29 03:58] VITALS: BP 139/66; PULSE 90; RESP 16; TEMP 36.4; O2SAT 99
[2023-11-29] MEDS: ondansetron HCL 4 MG/2 ML VIAL IVPUSH ×2 (05:35→10:29)
--- NOTE | 2023-11-29 06:14 | PC.NURSE ---
patient being sent up to dialysis at this time
[2023-11-29 09:57] VITALS: BP 170/80; PULSE 92; RESP 16; TEMP 36.2; O2SAT 100
[2023-11-29] MEDS: carvediloL 12.5 MG TABLET PO (10:29)
[2023-11-29] MEDS: Chlorhexidine Gluc Oral Rinse 15 ML MOUTHWASH BUCCAL (10:29)
[2023-11-29 11:39] LABS: Glucose, Whole Blood 128 mg/dL (60-115)
--- NOTE | 2023-11-29 13:00 | PM.DS ---
DS: Providers Provider Date of Service: 11/29/23 Date of admission: 11/10/23 03:09 Date of discharge: 11/29/23 Primary care physician: Genevieve Casillas MD Consults: 11/10/23 03:11 Consult to Nephrology Routine Consulting Provider: Jason Sanchez Reason for consultation: Acute on chronic renal failure, missing HD sessions Has provider been notified: Yes 11/10/23 13:50 Consult to Infectious Diseases Routine Consulting Provider: Yamilet Diallo Reason for consultation: sepsis, HD, vanc allergy 11/11/23 06:34 Consult to Wound Care Routine Reason for consultation: Multiple Skin Integrity Concerns 11/21/23 14:21 Consult to Psychiatry Routine Consulting Provider: Psych Covering Reason for consultation: refusing meds, insulin, and blood culture needed to get new HD line 11/22/23 11:30 Consult to Psychiatry Stat Consulting Provider: Psych Covering Reason for consultation: still refsuing blood cultures needed to get new HD line- ?capacity Attending physician on discharge: Efraín Weeks Discharging clinician: Angela Ulloa DS: Diagnosis Discharge Diagnosis (1) CLABSI (central line-associated bloodstream infection): Status: Acute (2) End stage chronic kidney disease: Status: Acute DS: Summary Hospital Course Hospital Course: From H&P on the day of admission Shereen Taylor is a 33 years old woman with past medical history significant for end-stage renal disease on hemodialysis (TTS -usually refusing HD on Saturdays), multiple hospitalization due to noncompliance with hemodialysis, diabetic retinopathy with blindness, PVD, multiple amputations, poorly uncontrolled hypertension, HFrEF, depression and chronic pain was narcotic seeking behavior presents to the emergency department after she sustained a mechanical fall today. Denies any significant trauma secondary to it. She also presented complaining of generalized body pain. She said that the last time she had hemodialysis session was a week ago. I asked why she usually misses multiple hemodialysis session, however she was unable to tell me the reason. However, she told me that she took all her home medications as prescribed and has not missed any of them. Patient mentioned she has an appointment with her primary care physician to address chronic pain control as an outpatient with extended release agents. Denies tobacco smoking, alcohol abuse or illicit drug use. In the ED, she was found to have significant hypertension, last BP is 188/100. There is no tachycardia, fever or tachypnea. O2 sats are normal on room air. Blood workup: CBC is unremarkable. Creatinine is 10.89 (it was 8.91), potassium is 5.4, CO2 16, anion gap 21 and BUN 94. Magnesium is elevated, 3.1. Troponin is 27.4. ECG showed normal sinus rhythm with a heart rate of 81 beats per minutes. ED tx: Dilaudid 3 mg IM (total), Benadryl 50 mg IM, Lokelma 10 g p.o. 33yo F with ESRD on HD TuThSa [though refuses to go on Sa], repeated hospitalizations due to nonadherence with HD, DM retinopathy with blindness, PVD s/p bilateral TMA, poorly controlled HTN due to noncompliance, chronic hypoxic respiratory failure, HFrEF, mood disorder, chronic pain initially admitted to hospitalist service after falling and missing HD but then became hypoxic and hypotensive without response to colloid resuscitation transferred to ICU for shock [determined due to sepsis and cardiogenic] and respiratory failure found to have Covid-19 infection and persistent Pseudomonas bacteremia intubated 11/11-11/16 weaned off pressors and ventilator, stepped down to telemetry 11/17 Pseudomonas CLABSI HD catheter removed 11/19 and then plan was for repeat BCx 11/20 am but pt refused. Pt agreed 11/20 pm but refused again. Counseled extensively on dire consequences of not documenting clear bloodstream so that she can get a replacement tunnel HD catheter. Psych consulted. Pt finally agreed to have BCx done and they were sent 11/21 afternoon and are clear. replaced HD 11/25 and plan 14d of cefepime 2g IV post HD per ID. Continue IV meropenem for now. Discussed with ID finding of 85 CFU of Riddhi albicans on cathter tip that was removed and cultured- no yeast in blood so this is likely a colonizer, not a pathogen chronic foot wounds - per Wound Care: Elevate heels off of bed surface with heel protector boots. Cleanse with Betadine. Cover wound beds with dry ABD pad and gauze wrap. Change daily. acute/chronic respiratory failure due to Covid-19 pneumonia - completed 10d of dexamethasone 11/11-11/21; d/c'ed isolation; on home O2 at baseline. currently O2 sat 100% on 2 L acute toxic-metabolic encephalopathy - resolved cardiogenic shock - resolved; continue carvedilol + hydralazine for HTN ESRD - HD TuThSa as per Nephrology but note pt has historically not gone to HD on Saturdays as outpt. Last HD was 11/28. received cefepime 11/28 anemia of ESRD - monitor H+H DM2 - muna-dose lispro refused throughout hospital stay dispo - PT eval refused by pt. will return home with sister as her MANAGER OF PROGRAM. Unable to obtain VNA as she has history of noncompliance and refusing VNA Time Attestation Discharge Coordination Time (in mins): 45 Quality: Safe Use of Opioids Does Pt have an Active Cancer Diagnosis on the Problem List?: No Quality: Stroke Does the patient have a stroke diagnosis?: No Physical Exam Vital Signs: Vital Signs: Last Vital Signs Temp 97.1 F 11/29/23 09:57 Pulse 92 11/29/23 09:57 Resp 16 11/29/23 09:57 BP 170/80 H 11/29/23 09:57 Pulse Ox 100 11/29/23 09:57 O2 Del Method Nasal Cannula 11/29/23 09:57 O2 Flow Rate 2 11/29/23 09:57 FiO2 21 11/17/23 14:00 BMI result Body Mass Index 30.6 Const: General: comfortable, no acute distress, alert and awake Nutritional Appearance: average body habitus Orientation/consciousness: patient oriented x3 Eyes: Other: right eye blind Resp: Effort & Inspection: normal respiratory effort, able to speak in complete sentences, no respiratory distress and no use of accessory muscles Cardio: Rate: regular rate GI: Inspection: No distended Palpation (GI): Soft to palpation Neuro: General: patient oriented x3 Extrem: Other: b/l wounds dressing c/d/i DS: Data Data Completed and Pending Completed studies during hospitalization [Text1]: Procedures Detachment at Left 2nd Toe, Complete, Open Approach (09/08/23) Detachment at Left 3rd Toe, Complete, Open Approach (09/08/23) Detachment at Left 4th Toe, Complete, Open Approach (09/08/23) Detachment at Right Foot, Partial 1st Ray, Open Approach (03/01/20) Detachment at Right Foot, Partial 2nd Ray, Open Approach (03/01/20) Detachment at Right Foot, Partial 3rd Ray, Open Approach (03/01/20) Detachment at Right Foot, Partial 4th Ray, Open Approach (03/01/20) Detachment at Right Foot, Partial 5th Ray, Open Approach (03/01/20) Drainage of Right Pleural Cavity, Percutaneous Approach (01/14/21) Excision of Left Foot Skin, External Approach (10/08/23) Excision of Left Foot Subcutaneous Tissue and Fascia, Open Approach (10/08/23) Excision of Right Foot Skin, External Approach (08/27/23) Excision of Stomach, Pylorus, Via Natural or Artificial Opening Endoscopic, Diagnostic (08/27/22) Fluoroscopy of Superior Vena Cava, Guidance (08/14/22) Insertion of Infusion Device into Right Atrium, Percutaneous Approach (08/14/22) Insertion of Infusion Device into Superior Vena Cava, Percutaneous Approach (01/14/21) Insertion of Infusion Device into Upper Vein, Percutaneous Approach (08/27/23) Insertion of Tunneled Vascular Access Device into Chest Subcutaneous Tissue and Fascia, Percutaneous Approach (08/14/22) Performance of Urinary Filtration, Intermittent, Less than 6 Hours Per Day (11/02/23) Removal of Infusion Device from Great Vessel, External Approach (01/14/21) Transfusion of Nonautologous Red Blood Cells into Peripheral Vein, Percutaneous Approach (04/22/22) Labs on day of discharge: Laboratory Results - last 24 hr 11/28/23 11/28/23 11/28/23 14:25 16:07 20:06 WBC 3.6 L RBC 2.88 L D Hgb 8.6 L D Hct 25.8 L D MCV 89.6 MCH 29.9 MCHC 33.3 RDW 16.5 H Plt Count 153 L MPV 12.3 Immature Gran % (Auto) 0.6 H Neut % (Auto) 55.2 Lymph % (Auto) 14.2 L Clare % (Auto) 24.7 H Eos % (Auto) 4.7 H Baso % (Auto) 0.6 Lymph # (Auto) 0.5 L Clare # (Auto) 0.9 Eos # (Auto) 0.2 Baso # (Auto) 0.0 Abs Immat Gran (auto) 0.02 Absolute Neuts (auto) 2.0 Absolute Nucleated RBC 0.000 Nucleated RBC % (auto) 0.0 Smear Tech's Comments VERIFIED Sodium 136 Potassium 3.8 Chloride 100 Carbon Dioxide 24 Anion Gap 16 BUN 41 H Creatinine 4.25 H* Estim Creat Clear Calc 20.4 Estimated GFR 12 POC Glucose 114 114 Random Glucose 92 Calcium 8.3 L D Total Bilirubin 1.3 H AST 23 ALT 6 Alkaline Phosphatase 168 H Total Protein 6.6 Albumin 3.2 L 11/29/23 11:33 WBC RBC Hgb Hct MCV MCH MCHC RDW Plt Count MPV Immature Gran % (Auto) Neut % (Auto) Lymph % (Auto) Clare % (Auto) Eos % (Auto) Baso % (Auto) Lymph # (Auto) Clare # (Auto) Eos # (Auto) Baso # (Auto) Abs Immat Gran (auto) Absolute Neuts (auto) Absolute Nucleated RBC Nucleated RBC % (auto) Smear Tech's Comments Sodium Potassium Chloride Carbon Dioxide Anion Gap BUN Creatinine Estim Creat Clear Calc Estimated GFR POC Glucose 128 H Random Glucose Calcium Total Bilirubin AST ALT Alkaline Phosphatase Total Protein Albumin Discharge Plan Discharge Anticipated Discharge Date/Time: 11/29/23 13:41 Patient Disposition: Home, Self-Care Discharge Diagnosis: Pseudomonas CLABSI Anemia related to ESRD Chronic foot wounds Acute on chronic respiratory failure due to COVID-19 ESRD Diabetes Shock-resolved Referrals: Oren Zamora MD [Physician] - 1 Week (chronic opiate use/frequent hospitaliztions) Genevieve Gtz MD [Primary Care Provider] - 1 Week Geraldine Celestin MD [Physician] - 1 Week (chronic wounds) Fernando Siddiqi MD [Physician] - 1 Week Discharge Medications: Continued carvedilol 12.5 mg tablet 12.5 mg PO BID diphenhydramine HCl 12.5 mg/5 mL Elixir 25 mg PO BEDTIME ondansetron 4 mg tablet,disintegrating 4 mg PO Q8H PRN (Reason: nausea and vomiting) Qty: 14 0RF hydralazine 50 mg Tablet 50 mg PO TID Qty: 90 2RF Protocol: Hold for SBP< HOLD for SBP < : 90 ferrous sulfate 324 mg (65 mg iron) tablet,delayed release (DR/EC) 324 mg PO BID Qty: 120 0RF oxycodone 5 mg tablet 5 mg PO Q6H PRN (Reason: pain, severe) Qty: 20 0RF Rx Instructions: Partial Fill upon patient request. Discontinued torsemide 20 mg tablet 40 mg PO BID Calcium Antacid 300 mg (750 mg) tablet,chewable 1 tab PO TIDWM nifedipine 60 mg tablet extended release 24hr 60 mg PO DAILY No Action (DME) off loading boot Kit See Rx Instructions .Route Qty: 1 0RF Rx Instructions: As directed Discharge Orders: Discharge Order (Routine); Ordered 11/29/23 Ordered By: Angela Ulloa Activity on Discharge: As tolerated Stand Alone Forms: Patient Portal Discharge page Print Language: Ukrainian Care Plan Goals: See below Health Concerns: Pseudomonas CLABSI Chronic foot wounds Acute/chronic respiratory failure due to COVID-19 pneumonia. Continue home oxygen Toxic metabolic encephalopathy-resolved Cardiogenic shock - resolved. Continue carvedilol and hydralazine for blood pressure control. Stop nifedipine Anemia of ESRD. Outpatient follow-up of CBC Plan of Treatment: for b/l foot wounds - Elevate heels off of bed surface with heel protector boots. Cleanse with Betadine. Cover wound beds with dry ABD pad and gauze wrap. Change daily. Recommend outpatient follow-up in Wound Care Clinic For chronic pain. We will be discharged with a small supply of oxycodone as she has been receiving it here in the hospital. Referral to outpatient pain management clinic For Pseudomonas line infection- we will need 14 days of IV cefepime 2 grams after dialysis, starting from 11/28 - end date 12/12 It is important to attend dialysis sessions not only to receive dialysis but also to receive antibiotics following dialysis session to ensure resolution of infection. Noncompliance can result in recurrent sepsis, overwhelming infection, re-hospitalization Assessment: See discharge summary
[2023-11-29] MEDS: cefEPime HCl 2 GM in 0.9 % Sodium Chloride 50 ML IV (13:26)
--- NOTE | 2023-11-29 14:07 | MHC.CM.PN ---
Per PA, patient medically cleared for dc home w/ family support/PATIENT RESOURCE COORDINATOR. Patient will transport home via BLS @ 3pm. Patient will resume scheduled HD w/ new abx. Mila HARRISON aware and faxed dc summary w/ abx orders. IMM delivered. [facility] Booking ID [id number]
== END 2023-11-29 15:30 | disposition home or self-care (01) | DRG 314 ==
LOC: HO.ED 11-10 02:20 → HO.EDOVER 11-10 03:14 → HO.ICU 11-10 23:17 → HO.IMC 11-11 14:30 → HO.ICU 11-11 15:48 → HO.IMC 11-18 11:49 → HO.S3 11-28 13:27
PROVIDERS: Family Medicine; Hospitalist; Internal Medicine; Internal Medicine Critical Care Medicine; Internal Medicine Pulmonary Disease; Physician Assistant Medical; Radiology Vascular & Interventional Radiology; Registered Nurse Community Health; Admitting Provider Internal Medicine; Emergency Provider Emergency Medicine Emergency Medical Services; PCP Student in an Organized Health Care Education/Training Program; Visit Provider Physician Assistant Medical
DX: T80.211A Bloodstream infection due to central venous catheter, initial encounter (principal); A41.9 Sepsis, unspecified organism; G92.8 Other toxic encephalopathy; N18.6 End stage renal disease; U07.1 COVID-19; R65.21 Severe sepsis with septic shock; J12.82 Pneumonia due to coronavirus disease 2019; R57.0 Cardiogenic shock; J96.21 Acute and chronic respiratory failure with hypoxia; I13.2 Hypertensive heart and chronic kidney disease with heart failure and with stage 5 chronic kidney disease, or end stage renal disease; N17.9 Acute kidney failure, unspecified; I50.22 Chronic systolic (congestive) heart failure; I42.9 Cardiomyopathy, unspecified; L97.429 Non-pressure chronic ulcer of left heel and midfoot with unspecified severity; L97.419 Non-pressure chronic ulcer of right heel and midfoot with unspecified severity; E87.5 Hyperkalemia; D63.1 Anemia in chronic kidney disease; G89.29 Other chronic pain; E11.65 Type 2 diabetes mellitus with hyperglycemia; E11.51 Type 2 diabetes mellitus with diabetic peripheral angiopathy without gangrene; E11.621 Type 2 diabetes mellitus with foot ulcer; E11.319 Type 2 diabetes mellitus with unspecified diabetic retinopathy without macular edema; B96.5 Pseudomonas (aeruginosa) (mallei) (pseudomallei) as the cause of diseases classified elsewhere; E11.22 Type 2 diabetes mellitus with diabetic chronic kidney disease; Z99.81 Dependence on supplemental oxygen; Z76.5 Malingerer [conscious simulation]; Z99.2 Dependence on renal dialysis; Z91.158 Patient's noncompliance with renal dialysis for other reason; Z79.899 Other long term (current) drug therapy
CPT/HCPCS: 0241U; 36415; 36558; 36589; 36590; 36600; 71045; 71275; 74177; 76937; 80048; 80053; 81001; 82803; 82947; 83605; 83735; 84100; 84484; 85007; 85025; 85027; 85379; 85610; 85730; 86141; 86850; 86900; 86901; 86923; 87040; 87070; 87071; 87077; 87086; 87186; 87205; 87493; 87507; 90999; 92526; 92610; 93005; 93306; 93970; 94002; 94003; 94640; 94799; 99285; C1750; C1758; C1769; J0360; J0613; J0692; J0696; J0878; J1100; J1170; J1200; J1580; J1644; J1650; J1920; J1939; J2185; J2250; J2405; J2470; J2704; J2765; J3010; P9016; P9047; Q9967

== ENCOUNTER 2023-11-10 03:09 | Outpatient (BNV) | payer OTHER, SELFPAY | END 2023-11-13 15:00 | PROVIDERS: Admitting Provider Internal Medicine; Emergency Provider Emergency Medicine Emergency Medical Services; PCP Student in an Organized Health Care Education/Training Program; Visit Provider Internal Medicine Cardiovascular Disease | DX: I34.0 Nonrheumatic mitral (valve) insufficiency (principal); I36.1 Nonrheumatic tricuspid (valve) insufficiency; I51.7 Cardiomegaly | CPT/HCPCS: 93306 ==

== ENCOUNTER 2023-11-10 03:09 | Outpatient (BNV) | payer OTHER, SELFPAY | END 2023-11-26 10:30 | PROVIDERS: Admitting Provider Internal Medicine; Emergency Provider Emergency Medicine Emergency Medical Services; PCP Student in an Organized Health Care Education/Training Program; Visit Provider Student in an Organized Health Care Education/Training Program | DX: N18.6 End stage renal disease (principal) | CPT/HCPCS: 36558; 76937; 77001 ==

== ENCOUNTER → 2023-11-10 03:09 | Outpatient (BNV) | payer OTHER, SELFPAY | PROVIDERS: Admitting Provider Internal Medicine; Emergency Provider Emergency Medicine Emergency Medical Services; PCP Student in an Organized Health Care Education/Training Program; Visit Provider Internal Medicine | DX: T80.211A Bloodstream infection due to central venous catheter, initial encounter (principal); J96.01 Acute respiratory failure with hypoxia | CPT/HCPCS: 99223; 99232; 99233; 99239; 99499 ==

== ENCOUNTER → 2023-11-10 03:09 | Outpatient (BNV) | payer OTHER, SELFPAY | PROVIDERS: Admitting Provider Internal Medicine; Emergency Provider Emergency Medicine Emergency Medical Services; PCP Student in an Organized Health Care Education/Training Program; Visit Provider Physician Assistant Surgical | DX: R78.81 Bacteremia (principal) | CPT/HCPCS: 36589 ==

== ENCOUNTER → 2023-11-10 03:09 | Outpatient (BNV) | payer OTHER, SELFPAY | PROVIDERS: Admitting Provider Internal Medicine; Emergency Provider Emergency Medicine Emergency Medical Services; PCP Student in an Organized Health Care Education/Training Program; Visit Provider Internal Medicine | DX: J96.01 Acute respiratory failure with hypoxia (principal) | CPT/HCPCS: 99222; 99232 ==

== ENCOUNTER → 2023-11-10 03:09 | Outpatient (BNV) | payer OTHER, SELFPAY | PROVIDERS: Admitting Provider Internal Medicine; Emergency Provider Emergency Medicine Emergency Medical Services; PCP Student in an Organized Health Care Education/Training Program; Visit Provider Internal Medicine Pulmonary Disease | DX: I12.0 Hypertensive chronic kidney disease with stage 5 chronic kidney disease or end stage renal disease (principal); N18.6 End stage renal disease; Z99.2 Dependence on renal dialysis; N17.9 Acute kidney failure, unspecified | CPT/HCPCS: 99499 ==

== ENCOUNTER → 2023-11-10 03:09 | Outpatient (BNV) | payer OTHER, SELFPAY | PROVIDERS: Admitting Provider Internal Medicine; Emergency Provider Emergency Medicine Emergency Medical Services; PCP Student in an Organized Health Care Education/Training Program; Visit Provider Physician Assistant Medical | DX: N18.6 End stage renal disease (principal); N17.9 Acute kidney failure, unspecified; J96.01 Acute respiratory failure with hypoxia; U07.1 COVID-19; Z99.2 Dependence on renal dialysis | CPT/HCPCS: 31500; 99291 ==

== ENCOUNTER → 2023-11-10 03:09 | Outpatient (BNV) | payer OTHER, SELFPAY | PROVIDERS: Admitting Provider Internal Medicine; Emergency Provider Emergency Medicine Emergency Medical Services; PCP Student in an Organized Health Care Education/Training Program; Visit Provider Psychiatry & Neurology Psychiatry | DX: Z13.30 Encounter for screening examination for mental health and behavioral disorders, unspecified (principal); T80.211A Bloodstream infection due to central venous catheter, initial encounter | CPT/HCPCS: 99233 ==

== ENCOUNTER 2023-12-11 15:35 | Inpatient (IN) | payer OTHER, SELFPAY ==
[2023-12-11] VITALS (10 sets, daily range): BP systolic 108–195; BP diastolic 64–105; PULSE 7–136; RESP 16–29; TEMP 38.9–39.4; O2SAT 98–100; BMI 27.9
--- NOTE | ~2023-12-11 | XR_ITS ---
EXAMINATION: XR FOOT, LEFT CLINICAL INFORMATION: Left foot wound. Bacteremia. Evaluate for osteomyelitis. COMPARISON: Most recent left foot radiographs dated 10/25/2023. TECHNIQUE: AP, oblique, and lateral views of the left foot. FINDINGS: Redemonstration of transmetatarsal amputations at the 1st, 2nd, 3rd, and 4th metatarsals. Resection of the 5th phalange is redemonstrated. Forefoot soft tissue swelling with possible ulceration anteromedially. No new osseous erosion. Chronic periosteal reaction associated with the 2nd, 3rd, and 4th metatarsals, unchanged. No acute fracture or dislocation. Midfoot osteoarthritis and bony remodeling is unchanged consistent with Charcot arthropathy. No radiopaque foreign body. XR/XR foot LT min 3V IMPRESSION: 1. Forefoot soft tissue swelling with possible ulceration anteromedially. No new osseous erosion. Acute osteomyelitis may be occult on plain radiographs and if there is clinical concern, MRI without and with contrast could help further evaluate. 2. Chronic periosteal reaction associated with the 2nd, 3rd, and 4th metatarsals, unchanged. 3. Midfoot osteoarthritis and bony remodeling is unchanged consistent with Charcot arthropathy. Electronically signed by: Ricardo Self MD 12/13/2023 08:53 PM EDT
--- NOTE | ~2023-12-11 | XR_ITS ---
EXAMINATION: XR CHEST CLINICAL INFORMATION: Altered mental status. COMPARISON: Chest radiograph 11/12/2023. TECHNIQUE: Frontal view of the chest was obtained. FINDINGS: Endotracheal tube and enteric tubes are not visualized. Left IJ dialysis catheter tip terminates over the expected location of the proximal right atrium. Unchanged enlargement of the cardiomediastinal silhouette. No consolidation, pleural effusion or pneumothorax. No acute osseous findings. XR/XR chest 1V IMPRESSION: 1. Endotracheal tube and enteric tubes are not visualized. 2. No acute cardiopulmonary findings. 3. Unchanged enlargement of the cardiomediastinal silhouette. Electronically signed by: Rosaura Marina MD 12/11/2023 05:30 PM EDT
[2023-12-11 16:08] LABS: Glucose, Whole Blood 77 mg/dL (60-115)
--- NOTE | 2023-12-11 16:10 | ECG_ITS ---
Test Reason : mental status change Blood Pressure : / mmHG Vent. Rate : 116 BPM Atrial Rate : 116 BPM P-R Int : 156 ms QRS Dur : 144 ms QT Int : 352 ms P-R-T Axes : 056 -11 108 degrees QTc Int : 489 ms Sinus tachycardia Possible Left atrial enlargement Right bundle branch block Abnormal ECG When compared with ECG of 10-NOV-2023 15:49, No significant changes seen Referred By: Jessica Reed Electronically Signed By:JASKARAN COOL
--- NOTE | 2023-12-11 16:20 | PC.NURSE ---
patient alert to verbal stimuli but eyes closed and only stating no
[2023-12-11] MEDS: cefTRIAXone sodium 1 GM VIAL IVPUSH (16:33)
[2023-12-11] MEDS: Dextrose 5 % 1,000 ML 1000 ML IVCONT (16:33)
[2023-12-11 16:37] LABS: Eosinophils Percent Auto 0.7 % (0-4); Hematocrit 27.5 % (37.0-47.0); Hemoglobin 8.9 g/dl (12.0-16.0); Imm Gran Abs Auto 0.01 X10*3/uL (0.00-0.03); Imm Gran Pct Auto 0.3 % (0.0-0.4); Lymphocytes Absolute Auto 0.1 X10*3/uL (1.2-4.9); Lymphocytes Percent Auto 4.1 % (20-40); MANUAL DIFF FLAG SCAN; Mean Corpuscular HGB Conc 32.4 g/dl (31.0-35.0); Mean Corpuscular Hemoglobin 29.8 pg (27.0-33.0); Mean Platelet Volume 11.9 fL (9.4-12.3); Monocytes Percent Auto 0.7 % (2-11); Neutrophils Absolute Auto 2.8 x10*3/uL (2.0-8.3); Neutrophils Percent Auto 94.2 % (45-73); Platelet Count 162 X10*3/uL (160-400); Red Blood Count 2.99 X10*6/uL (4.20-5.50); Red Cell Distribution Width 17.8 % (11.0-16.0); SCAN SMEAR FLAG 1; White Blood Count 2.9 X10*3/uL (4.8-10.8)
--- NOTE | 2023-12-11 16:54 | ED_ITS ---
HPI - General Adult General Chief complaint: Altered Mental Status Stated complaint: AMS AFTER DIALYSIS Time Seen by Provider: 12/11/23 16:04 Source: patient, EMS and old records reviewed Mode of arrival: EMS Limitations: no limitations History of Present Illness ED Provider: DR. Reed HPI narrative: 33-year-old female with PMH ESRD on dialysis TTS last dialysis was last Sunday, did not get her dialysis session today because patient was lethargic and was sent to the ED, history of multiple hospitalization due to noncompliance with hemodialysis, diabetic with a, B PVD, multiple amputations, poorly-controlled hypertension, HFrEF, depression, chronic pain. Sent from dialysis or further evaluation of acute mental status change, patient is sleepy but arouses to verbal stimuli able to answer question stated that her last dialysis was on Sunday, had a recent hospitalization for Pseudomonas infection patient received treatment of cefepime post HD and meropenem. Related Data Home Medications ?Medication ?Instructions ?Recorded ?Confirmed carvedilol 12.5 mg tablet 12.5 mg PO BID 06/05/23 11/10/23 diphenhydramine HCl 12.5 mg/5 mL 25 mg PO BEDTIME 10/08/23 11/10/23 oral elixir Previous Rx's ?Medication ?Instructions ?Recorded off loading boot #1 ea 03/14/23 ondansetron 4 mg disintegrating 4 mg PO Q8H PRN nausea and 10/19/23 tablet vomiting #14 tabs ferrous sulfate 324 mg (65 mg 324 mg PO BID #120 tabs 11/05/23 iron) tablet,delayed release hydralazine 50 mg tablet 50 mg PO TID #90 tabs 11/05/23 dextrose 40 % oral gel (Glutose-45) 15 g PO Q15M PRN sugars less then 11/29/23 60 #112.5 grams oxycodone 5 mg tablet 5 mg PO Q6H PRN pain, severe #20 11/29/23 tabs Allergies Allergy/AdvReac Type Severity Reaction Status Date / Time morphine [MORPHINE] Allergy Intermediate Itching Verified 12/11/23 16:18 azithromycin [From Zithromax] Allergy Hives Verified 12/11/23 16:18 gabapentin Allergy Facial Verified 12/11/23 16:18 Swelling tramadol Allergy Facial Verified 12/11/23 16:18 Swelling vancomycin Allergy Anaphylaxis Verified 12/11/23 16:18 Review of Systems 2 Review of Systems: All other systems are reviewed and are negative Constitutional: Reports as per HPI and Reports no additional constitutional complaints Eyes: Reports as per HPI and Reports no additional eye complaints Reports system reviewed and no additional complaints, except as documented Cardiovascular: Reports as per HPI and Reports no additional cardiovascular complaints Respiratory: Reports as per HPI and Reports no additional respiratory complaints Gastrointestinal: Reports as per HPI and Reports no additional gastrointestinal complaints Genitourinary: Reports no additional female genitourinary complaints Musculoskeletal: Reports no additional musculoskeletal complaints Skin/Breast: Reports system reviewed and no additional complaints, except as docu Psychiatric: Reports no additional psychiatric complaints Endocrine: Reports no additional endocrine complaints Hematologic/Lymphatic: Reports no additional hematologic/lymphatic complaints Allergic/Immunologic: Reports no additional allergic/immunologic complaints Reports system reviewed and no additional complaints, except as documented and Reports Abnormal speech present [facility] Past Medical History Medical History End stage chronic kidney disease Chronic kidney disease Anemia Chronic foot ulcer Plantar ulcer of left foot Major depressive disorder, single episode, severe ESRD (end stage renal disease) Non-compliance with renal dialysis Hypertensive urgency MDD (major depressive disorder), recurrent episode MDD (major depressive disorder) Renal failure Foot ulcer CKD (chronic kidney disease) Hypertension Diabetic foot Hyperkalemia Vomiting Renal failure Hypertension Migraine Chronic pain ESRD on dialysis Non-compliance with renal dialysis Hypertension End-stage renal disease (ESRD) Gastroparesis Diabetic foot ulcer associated with type 2 diabetes mellitus Hypertensive emergency Diabetes ESRD needing dialysis Cardiomyopathy HFrEF (heart failure with reduced ejection fraction) Metabolic acidosis delivery delivered Anemia in chronic kidney disease (CKD) CKD (chronic kidney disease) Headache, migraine Abnormal finding on echocardiogram Elevated troponin Chest pain Acute worsening of stage 3 chronic kidney disease Generalized edema Sepsis Cellulitis Pleural effusion CHF (congestive heart failure) (~06/07/22) Tachycardia Atypical chest pain Bone infection PAD (peripheral artery disease) Severe anemia Cellulitis and abscess of foot DM foot ulcer Osteomyelitis Asthma Depression with anxiety Diabetic retinopathy Type 2 diabetes mellitus with hyperglycemia, with long-term current use of insulin Blind right eye Diabetes Back pain Surgical History Tubal ligation status Previous section Hx laparoscopic cholecystectomy Hx of surgical procedure (~09/11/23) 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 Family History Family History Mother Coronary artery disease Myocardial infarction Stroke Diabetes mellitus Father Myocardial infarction Social History Social History Household Members: Unknown / Unable to assess 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 Housing: Apartment Do you presently have visiting nurse or other home services: No Unable to assess alcohol history related to: Unknown Alcohol intake: never Comment: restraints Patient Tobacco Use Status: Never used Tobacco e-Cigarette/Vaping Use: Never Used Second Hand Smoke Exposure: No Advance Directives: Yes Advance Directives on File: Yes Advance Directives Date on File: 09/04/23 Do you have a plan to hurt others: No Plan service: No Current occupational status: unemployed and disabled Gender identity: Female Physical Exam ED Vital Signs: Vital Signs - 24 hr 12/11/23 16:16 12/11/23 17:08 12/11/23 18:23 Temperature 103.0 F H 103.0 F H Pulse Rate 128 H 113 H 115 H Respiratory Rate 16 29 H 24 H Blood Pressure 108/88 193/97 H 195/105 H Pulse Oximetry 100 100 100 Oxygen Delivery Method Nasal Cannula Nasal Cannula Nasal Cannula Oxygen Flow Rate 3 2 BMI result Body Mass Index 27.9 Vital signs have been reviewed and appear to be correct. Blood pressure elevated. Heart rate elevated, Respiratory rate normal. Temperature elevated. Oxygen saturation normal. Appearance: Alert. Oriented X3. No acute distress. Head: Normal external exam. Normocephalic. Atraumatic. No Lynn signs noted. No raccoon eyes noted Eyes: PERRLA. EOMI. Conjunctiva and sclera normal. Eyelids normal. ENT: TM's Normal. Pharynx normal. Uvula midline. Moist mucous membranes. No trismus noted. No drooling noted. No muffled voice noted. Neck: Normal inspection. Neck supple. FROM. No adenopathy. Thyroid Normal. No meningeal signs. No neck mass noted. CVS: Normal heart rate and rhythm. Heart sound normal. No murmurs noted. Pulses normal throughout. Respiratory: No respiratory distress. Painless inspiration. Breath sounds normal. No wheezes/rales/rhonchi noted. Chest nontender. No accessory muscle usage noted or decreased air movement noted. Abdomen: Soft and nontender. Bowel sounds normal in all 4 quadrants. No distention noted. No organomegaly noted. No visible injury noted. Back: No CVA tenderness. Full range of motion noted. Skin: Skin warm and dry. Normal skin color. Normal skin turgor. No rashes/lesions/lacerations noted. Extremities: No lower extremity edema. Extremities exhibit normal range of motion. Extremities nontender. Neuro: Oriented X 3. Cranial nerve exam: II-XII are grossly intact No motor deficit. No sensory deficit. Reflexes normal. Course Reevaluation(s) Reevaluation #1: 33-year-old female ESRD missed her dialysis today, no significant electrolyte derangement, no sign of volume overload or pulmonary edema patient however received 1 L of D5W for hypoglycemia and cefepime for her history of Pseudomonas bacteremia. Improvement of lactic acidosis after fluids. Case discussed with Dr. Chavez from renal no plan for dialysis tonight. Time: 18:36 Medications Administered Discontinued Medications Generic Name Dose Route Start Last Admin Trade Name Freq PRN Reason Stop Dose Admin Ceftriaxone Sodium 1 gm 12/11/23 16:09 12/11/23 16:33 Ceftriaxone Sodium 1 Gm Vial IVPUSH 12/11/23 16:10 1 gm ONCE ONE Administration Dextrose 1,000 mls @ 1,000 mls/hr 12/11/23 16:11 12/11/23 18:18 D5w IVCONT 12/11/23 17:10 Infused .Q1H ONE Infusion Medical Decision Making Differential Diagnosis Differential Diagnoses: The differential diagnosis associated with the presentation includes (Sepsis, pneumonia, UTI, bacteremia, volume overload, pulmonary congestion, hypoglycemia, electrolyte derangement.) Admission/Observation Consideration of admission/observation: Escalation of care including admission/observation considered Consult Healthcare Provider Management of the patient was discussed with: Hospitalist (Dr. Bess) and Drop Count Associate (Dr. Chavez) Lab Data MDM Lab Attestation statement: I reviewed the patient's lab results. 12/11/23 16:24 12/11/23 16:24 Labs: Lab Results 12/11/23 12/11/23 12/11/23 Range/Units 16:04 16:24 17:38 WBC 2.9 L (4.8-10.8) X10*3/uL RBC 2.99 L (4.20-5.50) X10*6/uL Hgb 8.9 L (12.0-16.0) g/dl Hct 27.5 L (37.0-47.0) % MCV 92.0 (80.0-98.0) fL MCH 29.8 (27.0-33.0) pg MCHC 32.4 (31.0-35.0) g/dl RDW 17.8 H (11.0-16.0) % Plt Count 162 (160-400) X10*3/uL MPV 11.9 (9.4-12.3) fL Immature Gran % (Auto) 0.3 (0.0-0.4) % Neut % (Auto) 94.2 H (45-73) % Lymph % (Auto) 4.1 L (20-40) % Frio % (Auto) 0.7 L (2-11) % Eos % (Auto) 0.7 (0-4) % Baso % (Auto) 0.0 (0-2) % Lymph # (Auto) 0.1 L (1.2-4.9) X10*3/uL Frio # (Auto) 0.0 L (0.1-1.2) X10*3/uL Eos # (Auto) 0.0 (0.0-0.4) X10*3/uL Baso # (Auto) 0.0 (0.0-0.2) X10*3/uL Abs Immat Gran (auto) 0.01 (0.00-0.03) X10*3/uL Absolute Neuts (auto) 2.8 (2.0-8.3) x10*3/uL Absolute Nucleated RBC 0.000 (0.0-0.012) X10*3/uL Nucleated RBC % (auto) 0.0 (0.0-0.2) /100WBC Smear Tech's Comments VERIFIED Sodium 142 (135-145) mmol/L Potassium 3.8 (3.3-5.1) mmol/L Chloride 99 (96-108) mmol/L Carbon Dioxide 26 (22-29) mmol/L Anion Gap 21 H (12-20) BUN 32 H (9-16) mg/dL Creatinine 4.09 H* (0.5-1.4) mg/dL Estim Creat Clear Calc 20.2 Estimated GFR 12 POC Glucose 77 125 H (60-115) mg/dL Random Glucose 71 (60-115) mg/dL Lactic Acid 2.3 H* (0.5-2.0) mmol/L Calcium 9.6 D (8.4-10.2) mg/dL Total Bilirubin 2.0 H (0.0-1.0) mg/dL Direct Bilirubin 0.9 H (0.0-0.5) mg/dL AST 51 H (5-31) U/L ALT 23 (0-31) U/L Alkaline Phosphatase 236 H (39-117) U/L Troponin I High Sens 28.9 H D (<3.5-17.0) ng/L B-Natriuretic Peptide 3904 H (<100) pg/mL Total Protein 8.4 H (6.5-8.0) g/dL Albumin 4.0 (3.5-5.0) g/dL Lipase 136 H (8-78) U/L Beta HCG, Quant < 2 mIU/mL Influenza Type A (PCR) NEGATIVE (Negative) Influenza Type B (PCR) NEGATIVE (Negative) RSV RNA Qual (PCR) NEGATIVE (Negative) SARS-CoV-2 RNA (RT-PCR) NEGATIVE (Negative) 12/11/23 Range/Units 17:46 WBC (4.8-10.8) X10*3/uL RBC (4.20-5.50) X10*6/uL Hgb (12.0-16.0) g/dl Hct (37.0-47.0) % MCV (80.0-98.0) fL MCH (27.0-33.0) pg MCHC (31.0-35.0) g/dl RDW (11.0-16.0) % Plt Count (160-400) X10*3/uL MPV (9.4-12.3) fL Immature Gran % (Auto) (0.0-0.4) % Neut % (Auto) (45-73) % Lymph % (Auto) (20-40) % Frio % (Auto) (2-11) % Eos % (Auto) (0-4) % Baso % (Auto) (0-2) % Lymph # (Auto) (1.2-4.9) X10*3/uL Frio # (Auto) (0.1-1.2) X10*3/uL Eos # (Auto) (0.0-0.4) X10*3/uL Baso # (Auto) (0.0-0.2) X10*3/uL Abs Immat Gran (auto) (0.00-0.03) X10*3/uL Absolute Neuts (auto) (2.0-8.3) x10*3/uL Absolute Nucleated RBC (0.0-0.012) X10*3/uL Nucleated RBC % (auto) (0.0-0.2) /100WBC Smear Tech's Comments Sodium (135-145) mmol/L Potassium (3.3-5.1) mmol/L Chloride (96-108) mmol/L Carbon Dioxide (22-29) mmol/L Anion Gap (12-20) BUN (9-16) mg/dL Creatinine (0.5-1.4) mg/dL Estim Creat Clear Calc Estimated GFR POC Glucose (60-115) mg/dL Random Glucose (60-115) mg/dL Lactic Acid 1.3 (0.5-2.0) mmol/L Calcium (8.4-10.2) mg/dL Total Bilirubin (0.0-1.0) mg/dL Direct Bilirubin (0.0-0.5) mg/dL AST (5-31) U/L ALT (0-31) U/L Alkaline Phosphatase (39-117) U/L Troponin I High Sens (<3.5-17.0) ng/L B-Natriuretic Peptide (<100) pg/mL Total Protein (6.5-8.0) g/dL Albumin (3.5-5.0) g/dL Lipase (8-78) U/L Beta HCG, Quant mIU/mL Influenza Type A (PCR) (Negative) Influenza Type B (PCR) (Negative) RSV RNA Qual (PCR) (Negative) SARS-CoV-2 RNA (RT-PCR) (Negative) Independent Interpretation I performed an independent interpretation of an: Plain X-Ray (Chest:1. Endotracheal tube and enteric tubes are not visualized. 2. No acute cardiopulmonary findings. 3. Unchanged enlargement of the cardiomediastinal silhouette. ) Radiology Impression Discussion of test interpretation with radiology: I have reviewed the radiologist's reading. Chronic Conditions Patient?s care impacted by: Other (End-stage renal disease, hypertension, diabetes.) Discharge Plan Discharge Clinical Impression: Sepsis, Hypoglycemia, Bacteremia Patient Disposition: Admitted As Inpatient Prescriptions: No Action (DME) off loading boot Kit See Rx Instructions .Route Qty: 1 0RF Rx Instructions: As directed carvedilol 12.5 mg tablet 12.5 mg PO BID diphenhydramine HCl 12.5 mg/5 mL Elixir 25 mg PO BEDTIME ondansetron 4 mg tablet,disintegrating 4 mg PO Q8H PRN (Reason: nausea and vomiting) Qty: 14 0RF hydralazine 50 mg Tablet 50 mg PO TID Qty: 90 2RF Protocol: Hold for SBP< HOLD for SBP < : 90 ferrous sulfate 324 mg (65 mg iron) tablet,delayed release (DR/EC) 324 mg PO BID Qty: 120 0RF oxycodone 5 mg tablet 5 mg PO Q6H PRN (Reason: pain, severe) Qty: 20 0RF Rx Instructions: Partial Fill upon patient request. dextrose [Glutose-45] 40 % gel 15 g PO Q15M PRN (Reason: sugars less then 60) Qty: 112.5 0RF Rx Instructions: until symptoms of low blood sugar are controlled Print Language: Yakut
[2023-12-11 16:56] LABS: Lactic Acid 2.3 mmol/L (0.5-2.0)
[2023-12-11 17:01] LABS: B Type Natriuretic Peptide 3904 pg/mL (<100)
[2023-12-11 17:02] LABS: SLIDE REVIEW VERIFIED
[2023-12-11 17:03] LABS: Troponin-I High Sensitivity 28.9 ng/L (<3.5-17.0)
[2023-12-11 17:04] LABS: Alanine Aminotransferase 23 U/L (0-31); Alkaline Phosphatase 236 U/L (39-117); Anion Gap 21 (12-20); Aspartate Amino Transferase 51 U/L (5-31); Bilirubin Direct 0.9 mg/dL (0.0-0.5); Blood Urea Nitrogen 32 mg/dL (9-16); Calcium 9.6 mg/dL (8.4-10.2); Carbon Dioxide 26 mmol/L (22-29); Chloride 99 mmol/L (96-108); Creatinine Clr Calc Pharmacy 20.2; Estimated Glomerular Filt Rate 12; Glucose Random 71 mg/dL (60-115); HCG Quantitative < 2 mIU/mL; Lipase 136 U/L (8-78); Potassium 3.8 mmol/L (3.3-5.1); Sodium 142 mmol/L (135-145); Total Protein 8.4 g/dL (6.5-8.0)
[2023-12-11 17:41] LABS: Glucose, Whole Blood 125 mg/dL (60-115)
[2023-12-11 17:41] LABS: Influenza A PCR NEGATIVE (Negative); Influenza B PCR NEGATIVE (Negative); Resp Syncy Virus RNA Qual PCR NEGATIVE (Negative); SARS COV2 PCR INHOUSE NEGATIVE (Negative)
[2023-12-11 18:04] LABS: Lactic Acid 1.3 mmol/L (0.5-2.0)
[2023-12-11 18:29] LABS: Reflex Lactate? Lactic Acid Added
--- NOTE | 2023-12-11 18:30 | PC.NURSE ---
MD notified patient remains febrile 103.0 orally. recommended intervvention of tylenol. awaiting orders. patient alert to verbal stimuli. resp even unlabored. will continue to monitor closely.
--- NOTE | 2023-12-11 19:22 | PC.NURSE ---
eceived report from Keira BETH, assume care of pt at this time
--- NOTE | 2023-12-11 19:24 | PM.IMHP ---
History of Present Illness Date of Service: 12/11/23 Attending physician on admission: Lele Maria [facility], [facility] Medical History End stage chronic kidney disease Chronic kidney disease Anemia Chronic foot ulcer Plantar ulcer of left foot Major depressive disorder, single episode, severe ESRD (end stage renal disease) Non-compliance with renal dialysis Hypertensive urgency MDD (major depressive disorder), recurrent episode MDD (major depressive disorder) Renal failure Foot ulcer CKD (chronic kidney disease) Hypertension Diabetic foot Hyperkalemia Vomiting Renal failure Hypertension Migraine Chronic pain ESRD on dialysis Non-compliance with renal dialysis Hypertension End-stage renal disease (ESRD) Gastroparesis Diabetic foot ulcer associated with type 2 diabetes mellitus Hypertensive emergency Diabetes ESRD needing dialysis Cardiomyopathy HFrEF (heart failure with reduced ejection fraction) Metabolic acidosis delivery delivered Anemia in chronic kidney disease (CKD) CKD (chronic kidney disease) Headache, migraine Abnormal finding on echocardiogram Elevated troponin Chest pain Acute worsening of stage 3 chronic kidney disease Generalized edema Sepsis Cellulitis Pleural effusion CHF (congestive heart failure) (~06/07/22) Tachycardia Atypical chest pain Bone infection PAD (peripheral artery disease) Severe anemia Cellulitis and abscess of foot DM foot ulcer Osteomyelitis Asthma Depression with anxiety Diabetic retinopathy Type 2 diabetes mellitus with hyperglycemia, with long-term current use of insulin Blind right eye Diabetes Back pain Family History Mother Coronary artery disease Myocardial infarction Stroke Diabetes mellitus Father Myocardial infarction Surgical History Tubal ligation status Previous section Hx laparoscopic cholecystectomy Hx of surgical procedure (~09/11/23) 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 Social History Household Members: Unknown / Unable to assess 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 Housing: Apartment Do you presently have visiting nurse or other home services: No Unable to assess alcohol history related to: Unknown Alcohol intake: never Comment: restraints Patient Tobacco Use Status: Never used Tobacco e-Cigarette/Vaping Use: Never Used Second Hand Smoke Exposure: No Advance Directives: Yes Advance Directives on File: Yes Advance Directives Date on File: 09/04/23 Do you have a plan to hurt others: No Plan service: No Current occupational status: unemployed and disabled Gender identity: Female Meds Allergies Allergy/AdvReac Type Severity Reaction Status Date / Time morphine [MORPHINE] Allergy Intermediate Itching Verified 12/11/23 16:18 azithromycin [From Zithromax] Allergy Hives Verified 12/11/23 16:18 gabapentin Allergy Facial Verified 12/11/23 16:18 Swelling tramadol Allergy Facial Verified 12/11/23 16:18 Swelling vancomycin Allergy Anaphylaxis Verified 12/11/23 16:18 Home Medications ?Medication ?Instructions ?Recorded ?Confirmed ?Last Taken ?Type carvedilol 12.5 mg tablet 12.5 mg PO BID 06/05/23 11/10/23 10/17/23 History diphenhydramine HCl 12.5 mg/5 mL 25 mg PO BEDTIME 10/08/23 11/10/23 10/17/23 History oral elixir Physical Exam Vital Signs and Narrative: Vital Signs: Last Vital Signs Temp 103.0 F H 12/11/23 18:23 Pulse 115 H 12/11/23 18:23 Resp 24 H 12/11/23 18:23 BP 195/105 H 12/11/23 18:23 Pulse Ox 100 12/11/23 18:23 O2 Del Method Nasal Cannula 12/11/23 18:23 O2 Flow Rate 2 12/11/23 18:23 Oxygen Flow Rate 4 12/11/23 16:16 BMI result Body Mass Index 27.9 Results Labs 12/11/23 16:24 12/11/23 16:24 Labs: Laboratory Results - last 24 hr 12/11/23 12/11/23 12/11/23 16:04 16:24 17:38 MCV 92.0 MCH 29.8 MCHC 32.4 RDW 17.8 H Plt Count 162 MPV 11.9 Immature Gran % (Auto) 0.3 Neut % (Auto) 94.2 H Lymph % (Auto) 4.1 L Harrison % (Auto) 0.7 L Eos % (Auto) 0.7 Baso % (Auto) 0.0 Lymph # (Auto) 0.1 L Harrison # (Auto) 0.0 L Eos # (Auto) 0.0 Baso # (Auto) 0.0 Abs Immat Gran (auto) 0.01 Absolute Neuts (auto) 2.8 Absolute Nucleated RBC 0.000 Nucleated RBC % (auto) 0.0 Smear Tech's Comments VERIFIED Anion Gap 21 H Estim Creat Clear Calc 20.2 Estimated GFR 12 POC Glucose 77 125 H Random Glucose 71 Lactic Acid 2.3 H* Calcium 9.6 D Total Bilirubin 2.0 H Direct Bilirubin 0.9 H AST 51 H ALT 23 Alkaline Phosphatase 236 H Troponin I High Sens 28.9 H D B-Natriuretic Peptide 3904 H Total Protein 8.4 H Albumin 4.0 Lipase 136 H Beta HCG, Quant < 2 Influenza Type A (PCR) NEGATIVE Influenza Type B (PCR) NEGATIVE RSV RNA Qual (PCR) NEGATIVE SARS-CoV-2 RNA (RT-PCR) NEGATIVE 12/11/23 17:46 MCV MCH MCHC RDW Plt Count MPV Immature Gran % (Auto) Neut % (Auto) Lymph % (Auto) Harrison % (Auto) Eos % (Auto) Baso % (Auto) Lymph # (Auto) Harrison # (Auto) Eos # (Auto) Baso # (Auto) Abs Immat Gran (auto) Absolute Neuts (auto) Absolute Nucleated RBC Nucleated RBC % (auto) Smear Tech's Comments Anion Gap Estim Creat Clear Calc Estimated GFR POC Glucose Random Glucose Lactic Acid 1.3 Calcium Total Bilirubin Direct Bilirubin AST ALT Alkaline Phosphatase Troponin I High Sens B-Natriuretic Peptide Total Protein Albumin Lipase Beta HCG, Quant Influenza Type A (PCR) Influenza Type B (PCR) RSV RNA Qual (PCR) SARS-CoV-2 RNA (RT-PCR) Imaging Radiologist's Impressions: Impressions Chest X-Ray 12/11/23 16:10 IMPRESSION: 1. Endotracheal tube and enteric tubes are not visualized. 2. No acute cardiopulmonary findings. 3. Unchanged enlargement of the cardiomediastinal silhouette. Electronically signed by: Rosaura Marina MD 12/11/2023 05:30 PM EDT
--- NOTE | 2023-12-11 20:21 | P.HPHOSP_ITS ---
History of Present Illness Date of Service: 12/11/23 Attending physician on admission: Lele Maria Chief Complaint: Body aches Shereen Taylor is a 33 years old woman with past medical history significant for end-stage renal disease on hemodialysis (TTS -usually refusing HD on Saturdays), multiple hospitalization due to noncompliance with hemodialysis, diabetic retinopathy with blindness, PVD, multiple amputations, chronic wounds to her feet + infections, poorly uncontrolled hypertension, HFrEF, depression and chronic pain was sent to the emergency department from dialysis for evaluation after she was found to be lethargic. She has missed 2 of her hemodialysis. She was recently hospitalized and admitted to the ICU due to septic shock + COVID requiring vasopressors and endotracheal intubation. She was found to have bacteremia. The patient is currently quite ill and unable to provide meaningful HPI. She only complains of generalized fatigue and body aches. She denied chest pain or shortness breath. In the ED, she was found to have marked hypertension, fever of 103, tachycardia and tachypnea. Blood workup was remarkable for neutropenia of 2.9, hemoglobin is 8.9 which is around her baseline and platelets 162. Creatinine is 4.09 and BUN 32. Anion gap is elevated at 21. Last glucose is 125. There is mild lactic acidosis that normalized 2.3--> 1.3. Troponin is 28.9, alk-phos 236 and BNP 3904. Viral testing for COVID-19, influenza and RSV is negative. CXR showed no acute cardiopulmonary findings. ECG shows sinus tachycardia, heart rate 116 bpm, RBBB. ED tx: D5 1 L bolus, ceftriaxone 1 g IV. Review of Systems 2 Review of Systems: Yes Unobtainable due to mental condition [facility] Medical History End stage chronic kidney disease Chronic kidney disease Anemia Chronic foot ulcer Plantar ulcer of left foot Major depressive disorder, single episode, severe ESRD (end stage renal disease) Non-compliance with renal dialysis Hypertensive urgency MDD (major depressive disorder), recurrent episode MDD (major depressive disorder) Renal failure Foot ulcer CKD (chronic kidney disease) Hypertension Diabetic foot Hyperkalemia Vomiting Renal failure Hypertension Migraine Chronic pain ESRD on dialysis Non-compliance with renal dialysis Hypertension End-stage renal disease (ESRD) Gastroparesis Diabetic foot ulcer associated with type 2 diabetes mellitus Hypertensive emergency Diabetes ESRD needing dialysis Cardiomyopathy HFrEF (heart failure with reduced ejection fraction) Metabolic acidosis delivery delivered Anemia in chronic kidney disease (CKD) CKD (chronic kidney disease) Headache, migraine Abnormal finding on echocardiogram Elevated troponin Chest pain Acute worsening of stage 3 chronic kidney disease Generalized edema Sepsis Cellulitis Pleural effusion CHF (congestive heart failure) (~06/07/22) Tachycardia Atypical chest pain Bone infection PAD (peripheral artery disease) Severe anemia Cellulitis and abscess of foot DM foot ulcer Osteomyelitis Asthma Depression with anxiety Diabetic retinopathy Type 2 diabetes mellitus with hyperglycemia, with long-term current use of insulin Blind right eye Diabetes Back pain Family History Mother Coronary artery disease Myocardial infarction Stroke Diabetes mellitus Father Myocardial infarction Surgical History Tubal ligation status Previous section Hx laparoscopic cholecystectomy Hx of surgical procedure (~09/11/23) 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 Social History Household Members: Unknown / Unable to assess Household Members 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 Housing: Apartment Do you presently have visiting nurse or other home services: No Unable to assess alcohol history related to: Unknown Alcohol intake: never Comment: restraints Patient Tobacco Use Status: Never used Tobacco e-Cigarette/Vaping Use: Never Used Second Hand Smoke Exposure: No Advance Directives: Yes Advance Directives on File: Yes Advance Directives Date on File: 09/04/23 Do you have a plan to hurt others: No Plan service: No Current occupational status: unemployed and disabled Gender identity: Female Meds Allergies Allergy/AdvReac Type Severity Reaction Status Date / Time morphine [MORPHINE] Allergy Intermediate Itching Verified 12/11/23 16:18 azithromycin [From Zithromax] Allergy Hives Verified 12/11/23 16:18 gabapentin Allergy Facial Verified 12/11/23 16:18 Swelling tramadol Allergy Facial Verified 12/11/23 16:18 Swelling vancomycin Allergy Anaphylaxis Verified 12/11/23 16:18 Active Medications: Current Medications Acetaminophen (Acetaminophen 325 Mg Tablet) 975 mg PO Q6H PRN PRN Reason: Pain, Mild (Pain Scale 1-3), fever or headache Heparin Sodium (Porcine) (Heparin Sodium,Porcine 5,000 Unit/Ml Vial) 5,000 unit SUBCUT Q12H [facility] Sodium Chloride (Ns) 500 mls @ 500 mls/hr IV .Q1H STA Stop: 12/11/23 20:42 Doxycycline Hyclate 100 mg/ (Sodium Chloride) 250 mls @ 166.67 mls/hr IV Q12H [facility] Sodium Chloride (0.9 % Sodium Chloride Flush 3 Ml Syringe) 3 ml IVFLUSH QSHIFT [facility] Home Medications ?Medication ?Instructions ?Recorded ?Confirmed ?Last Taken ?Type No Known Home Meds 12/11/23 12/11/23 Unknown History Physical Exam 2 Vital Signs and Narrative: Vital Signs: Last Vital Signs Temp 103.0 F H 12/11/23 18:23 Pulse 115 H 12/11/23 18:23 Resp 24 H 12/11/23 18:23 BP 195/105 H 12/11/23 18:23 Pulse Ox 100 12/11/23 18:23 O2 Del Method Nasal Cannula 12/11/23 18:23 O2 Flow Rate 2 12/11/23 18:23 Oxygen Flow Rate 4 12/11/23 16:16 BMI result Body Mass Index 27.9 Constitutional - Lethargic but easy to arouse, febrile. HEENT - Atraumatic head. Heart - Tachycardic, (+) murmur Respiratory - Normal lung expansion, Normal respiratory effort, No respiratory distress, CTA bilaterally Abdomen - NT / ND; +BS; No rebound or guarding Extremities: Musculoskeletal - Generalized atrophy Skin - Warm/Dry Neurological - Lethargic. No focal weakness Psychological - Depressed affect Results Labs 12/11/23 16:24 12/11/23 16:24 Labs: Laboratory Results - last 24 hr 12/11/23 12/11/23 12/11/23 16:04 16:24 17:38 MCV 92.0 MCH 29.8 MCHC 32.4 RDW 17.8 H Plt Count 162 MPV 11.9 Immature Gran % (Auto) 0.3 Neut % (Auto) 94.2 H Lymph % (Auto) 4.1 L Ritchie % (Auto) 0.7 L Eos % (Auto) 0.7 Baso % (Auto) 0.0 Lymph # (Auto) 0.1 L Ritchie # (Auto) 0.0 L Eos # (Auto) 0.0 Baso # (Auto) 0.0 Abs Immat Gran (auto) 0.01 Absolute Neuts (auto) 2.8 Absolute Nucleated RBC 0.000 Nucleated RBC % (auto) 0.0 Smear Tech's Comments VERIFIED Anion Gap 21 H Estim Creat Clear Calc 20.2 Estimated GFR 12 POC Glucose 77 125 H Random Glucose 71 Lactic Acid 2.3 H* Calcium 9.6 D Total Bilirubin 2.0 H Direct Bilirubin 0.9 H AST 51 H ALT 23 Alkaline Phosphatase 236 H Troponin I High Sens 28.9 H D B-Natriuretic Peptide 3904 H Total Protein 8.4 H Albumin 4.0 Lipase 136 H Beta HCG, Quant < 2 Influenza Type A (PCR) NEGATIVE Influenza Type B (PCR) NEGATIVE RSV RNA Qual (PCR) NEGATIVE SARS-CoV-2 RNA (RT-PCR) NEGATIVE 12/11/23 17:46 MCV MCH MCHC RDW Plt Count MPV Immature Gran % (Auto) Neut % (Auto) Lymph % (Auto) Ritchie % (Auto) Eos % (Auto) Baso % (Auto) Lymph # (Auto) Ritchie # (Auto) Eos # (Auto) Baso # (Auto) Abs Immat Gran (auto) Absolute Neuts (auto) Absolute Nucleated RBC Nucleated RBC % (auto) Smear Tech's Comments Anion Gap Estim Creat Clear Calc Estimated GFR POC Glucose Random Glucose Lactic Acid 1.3 Calcium Total Bilirubin Direct Bilirubin AST ALT Alkaline Phosphatase Troponin I High Sens B-Natriuretic Peptide Total Protein Albumin Lipase Beta HCG, Quant Influenza Type A (PCR) Influenza Type B (PCR) RSV RNA Qual (PCR) SARS-CoV-2 RNA (RT-PCR) Imaging Radiologist's Impressions: Impressions Chest X-Ray 12/11/23 16:10 IMPRESSION: 1. Endotracheal tube and enteric tubes are not visualized. 2. No acute cardiopulmonary findings. 3. Unchanged enlargement of the cardiomediastinal silhouette. Electronically signed by: Rosaura Marina MD 12/11/2023 05:30 PM EDT Assessment and Plan (1) Sepsis: Qualifiers: Sepsis type: sepsis due to unspecified organism Sepsis acute organ dysfunction status: unspecified Qualified Code(s): A41.9 - Sepsis, unspecified organism Status: Acute (2) Toxic metabolic encephalopathy: Status: Acute Plan Shereen Taylor is a 33 y/o woman with past medical history significant for ESRD noncompliant with HD admitted with: * Severe sepsis, possible bacteremia (recently found to have bacteremia by Pseudomonas); lactic acidosis resolved. Admit to hospitalist service. Telemetry. Pulse oximetry. Blood culture obtained in the ED -will follow results. Start empiric IV antibiotic therapy with meropenem and doxycycline (MRSA coverage -she is allergic to vancomycin). IVFs 500 ml NS bolus (pt has ESRD and HFrED so we need to be careful with IVFs administration). Check UA. * Toxic - metabolic encephalopathy secondary to above. Aspiration precautions. Continue IV antibiotic therapy and gentle IV fluids. * Uncontrolled hypertension. Labetalol 10 mg IV and as needed. Will continue home anti-HTN meds: Carvedilol and hydralazine. Torsemide and nifedipine were discontinued during last hospitalization. * Type 2 diabetes mellitus. BG checks before meals at bedtime. Insulin sliding scale only for now. * Chronic foot wounds. Wound care. * ESRD. No metabolic acidosis, overload or hyperkalemia. Nephrology consult for routine inpatient hemodialysis. * Chronic anemia. Hemoglobin at baseline. Continue to monitor. * HFrEF. No evidence of overload, at this time. Continue to monitor for symptoms. * Blindness due to diabetic retinopathy. DVT prophylaxis: heparin GI prophylaxis: Protonix IV Code status: Full Patient will need hospitalization for at least 2 midnight for sepsis treatment with empiric IV antibiotic therapy, continue monitoring of vital signs and evaluation by subspecialty. Quality Stroke Does the patient have a stroke diagnosis?: No VTE Prior VTE?: No VTE Risk Level:: Medical - moderate - high VTE Device Contraindication: Treatment Not Indicated VTE Drug Contraindication: N/A - Med Ordered
--- NOTE | 2023-12-11 20:22 | PHA.MEDREC ---
Addendum entered by Tatyana Vick RPh 12/11/23 20:45: Reviewed by [facility] Original Note: Pharmacy Consult ? Medication Reconciliation Pharmacy has completed the medication reconciliation. Tried going to speak with patient @1934 & 2011 and patient was asleep and not able to wake up both time. I called patient Sister and Health Care Proxy Mary and spoke with her over the phone and she stated her sister is not taking any medications and has not taken any medications in a long time . I asked about the Dextrose since that was just filled and Mary confirmed again that her sister is not taking any medications and is not sure about that medication.
[2023-12-11] MEDS: Meropenem 1 GM VIAL IVPUSH (20:34)
[2023-12-11] MEDS: Doxycycline Hyclate 100 MG in 0.9 % Sodium Chloride 250 ML 166.67 MG IV (20:34)
[2023-12-11] MEDS: Labetalol HCL 100 MG/20 ML VIAL 10 MG IVPUSH (20:41)
[2023-12-11] MEDS: 0.9 % Sodium Chloride 500 ML IV (20:51)
--- NOTE | 2023-12-11 20:57 | PC.NURSE ---
pt refused PO tylenol, states she is throwing up. This nurse, has not seen her throw up. Pt also refused for lab to draw blood. Dr Noonan aware
[2023-12-11] MEDS: Acetaminophen 1,000 MG/100 ML PIGGYBACK 400 MG IV (21:03)
[2023-12-11 21:14] LABS: Glucose, Whole Blood 106 mg/dL (60-115)
[2023-12-12] VITALS (7 sets, daily range): BP systolic 105–138; BP diastolic 53–71; PULSE 78–95; RESP 14–16; TEMP 36.4–37.4; O2SAT 99–100
--- NOTE | 2023-12-12 05:45 | PC.NURSE ---
pt awake and c/o of pain in her feet and all over. requesting pain medication. pt given update on plan of care. informed dr torres of pt's request
[2023-12-12] MEDS: Pantoprazole Sodium 40 MG/10 ML VIAL IVPUSH (06:05)
[2023-12-12] MEDS: HYDROmorphone HCl 0.5 MG/0.5 ML SYRINGE IVPUSH ×2 (06:06→15:13)
--- NOTE | 2023-12-12 07:10 | PC.NURSE ---
report to Abbie BETH
--- NOTE | 2023-12-12 07:45 | PC.NURSE ---
Pt enters my care. Pt easily to rouse to voice- refused am labs by phlebotomy- CBG checked 75. Pt refused juice- pt took a banana with encouragement. Pt's Vss
[2023-12-12 07:51] LABS: Glucose, Whole Blood 75 mg/dL (60-115)
--- NOTE | 2023-12-12 07:58 | P.PNIM_ITS ---
Subjective Subjective Date of Service: 12/12/23 Review of Systems Follow-up fever Denies pain, some nausea and vomiting which is chronic Physical Exam 2 Vital Signs: Vital Signs: Last Vital Signs Temp 98.1 F 12/12/23 06:10 Pulse 95 12/12/23 06:10 Resp 14 12/12/23 06:10 BP 124/61 12/12/23 06:10 Pulse Ox 100 12/12/23 06:10 O2 Del Method Nasal Cannula 12/12/23 06:10 O2 Flow Rate 2 12/12/23 06:10 Oxygen Flow Rate 4 12/11/23 16:16 BMI result Body Mass Index 27.9 Appearing in no acute distress, blindness lung sounds are clear to auscultation heart regular rate rhythm, clear S1, S2 positive bowel sounds, abdomen is soft, nontender neuro patient is alert x3, no focal deficits Bilateral foot wounds Objective Data Active Medications Acetaminophen (Acetaminophen 325 Mg Tablet) 975 mg PO Q6H PRN PRN Reason: Pain, Mild (Pain Scale 1-3), fever or headache Glucose (Glucose Gel 15 Gm Gel..Gram.) 15 gm PO Q15M PRN; Protocol PRN Reason: per Hypoglycemia Standing Ord. Heparin Sodium (Porcine) (Heparin Sodium,Porcine 5,000 Unit/Ml Vial) 5,000 unit SUBCUT Q12H [facility] Doxycycline Hyclate 100 mg/ (Sodium Chloride) 250 mls @ 166.67 mls/hr IV Q12H [facility] Last Infusion: 12/11/23 23:24 Dose: Infused Documented By: VÍCTOR Dextrose ([id number]) 250 mls @ 750 mls/hr IV Q15M PRN; Protocol PRN Reason: per Hypoglycemia Standing Ord. Insulin Human Lispro (Insulin Lispro 100 Unit/Ml 3 Ml Vial) 0 unit SUBCUT QIDACHS [facility]; Protocol Last Admin: 12/12/23 07:54 Dose: Not Given Documented By: SONYA Non-Admin Reason: No Insulin Coverage Meropenem (Meropenem 1 Gm Vial) 1 gm IVPUSH Q24H [facility] Ondansetron HCl (Ondansetron Hcl 4 Mg/2 Ml Vial) 4 mg IVPUSH Q6H PRN PRN Reason: Nausea and Vomiting Pantoprazole Sodium (Pantoprazole Sodium 40 Mg/10 Ml Vial) 40 mg IVPUSH DAILY@0630 [facility] Last Admin: 12/12/23 06:05 Dose: 40 mg Documented By: VÍCTOR Sodium Chloride (0.9 % Sodium Chloride Flush 3 Ml Syringe) 3 ml IVFLUSH QSHIFT [facility] Last Admin: 12/12/23 00:18 Dose: Not Given Documented By: VÍCTOR Non-Admin Reason: Previously Administered Labs 12/12/23 08:57 12/12/23 08:57 Labs: Laboratory Results - last 24 hr 12/11/23 12/11/23 12/11/23 16:04 16:24 17:38 MCV 92.0 MCH 29.8 MCHC 32.4 RDW 17.8 H Plt Count 162 MPV 11.9 Immature Gran % (Auto) 0.3 Neut % (Auto) 94.2 H Lymph % (Auto) 4.1 L Page % (Auto) 0.7 L Eos % (Auto) 0.7 Baso % (Auto) 0.0 Lymph # (Auto) 0.1 L Page # (Auto) 0.0 L Eos # (Auto) 0.0 Baso # (Auto) 0.0 Abs Immat Gran (auto) 0.01 Absolute Neuts (auto) 2.8 Absolute Nucleated RBC 0.000 Nucleated RBC % (auto) 0.0 Smear Tech's Comments VERIFIED Anion Gap 21 H Estim Creat Clear Calc 20.2 Estimated GFR 12 POC Glucose 77 125 H Random Glucose 71 Lactic Acid 2.3 H* Calcium 9.6 D Total Bilirubin 2.0 H Direct Bilirubin 0.9 H AST 51 H ALT 23 Alkaline Phosphatase 236 H Troponin I High Sens 28.9 H D B-Natriuretic Peptide 3904 H Total Protein 8.4 H Albumin 4.0 Lipase 136 H Beta HCG, Quant < 2 Influenza Type A (PCR) NEGATIVE Influenza Type B (PCR) NEGATIVE RSV RNA Qual (PCR) NEGATIVE SARS-CoV-2 RNA (RT-PCR) NEGATIVE 12/11/23 12/11/23 12/12/23 17:46 21:11 07:48 MCV MCH MCHC RDW Plt Count MPV Immature Gran % (Auto) Neut % (Auto) Lymph % (Auto) Page % (Auto) Eos % (Auto) Baso % (Auto) Lymph # (Auto) Page # (Auto) Eos # (Auto) Baso # (Auto) Abs Immat Gran (auto) Absolute Neuts (auto) Absolute Nucleated RBC Nucleated RBC % (auto) Smear Tech's Comments Anion Gap Estim Creat Clear Calc Estimated GFR POC Glucose 106 75 Random Glucose Lactic Acid 1.3 Calcium Total Bilirubin Direct Bilirubin AST ALT Alkaline Phosphatase Troponin I High Sens B-Natriuretic Peptide Total Protein Albumin Lipase Beta HCG, Quant Influenza Type A (PCR) Influenza Type B (PCR) RSV RNA Qual (PCR) SARS-CoV-2 RNA (RT-PCR) Assessment and Plan (1) Toxic metabolic encephalopathy: Status: Acute (2) Bacteremia: Status: Acute Plan Shereen Taylor is a 33 y/o woman with past medical history significant for ESRD noncompliant with HD admitted with: Severe sepsis possible bacteremia (recently found to have bacteremia by Pseudomonas); Blood culture pending empiric IV antibiotic therapy with meropenem and doxycycline (MRSA coverage -she is allergic to vancomycin). s/p IVFs 500 ml NS bolus Check UA. Toxic metabolic encephalopathy secondary to above. Aspiration precautions. Continue IV antibiotic therapy Uncontrolled hypertension. Labetalol 10 mg IV and as needed. continue home meds Carvedilol and hydralazine. Torsemide and nifedipine were discontinued during last hospitalization. Type 2 diabetes mellitus. BG checks before meals at bedtime. Insulin sliding scale only for now. Chronic bilateral foot wounds. Wound care. ESRD. No metabolic acidosis, overload or hyperkalemia. Nephrology consult for routine inpatient hemodialysis. Chronic anemia. Hemoglobin at baseline. Continue to monitor. HFrEF. No evidence of overload, at this time. Continue to monitor for symptoms. Blindness due to diabetic retinopathy. DVT prophylaxis: heparin GI prophylaxis: Protonix IV Code status: Full Quality Stroke Does the patient have a stroke diagnosis?: No VTE Prior VTE?: No VTE Risk Level:: Medical - moderate - high VTE Device Contraindication: Treatment Not Indicated VTE Drug Contraindication: N/A - Med Ordered
[2023-12-12 09:05] LABS: MANUAL DIFF FLAG NO
[2023-12-12 09:05] LABS: Glucose, Whole Blood 80 mg/dL (60-115)
[2023-12-12] MEDS: Doxycycline Hyclate 100 MG in 0.9 % Sodium Chloride 250 ML 166.67 MG IV (09:06)
[2023-12-12 09:09] LABS: Basophils Percent Auto 0.2 % (0-2); Eosinophils Absolute Auto 0.1 X10*3/uL (0.0-0.4); Eosinophils Percent Auto 0.9 % (0-4); Hematocrit 22.4 % (37.0-47.0); Hemoglobin 7.1 g/dl (12.0-16.0); Imm Gran Abs Auto 0.03 X10*3/uL (0.00-0.03); Imm Gran Pct Auto 0.5 % (0.0-0.4); Lymphocytes Absolute Auto 0.3 X10*3/uL (1.2-4.9); Mean Corpuscular HGB Conc 31.7 g/dl (31.0-35.0); Mean Corpuscular Hemoglobin 30.1 pg (27.0-33.0); Mean Corpuscular Volume 94.9 fL (80.0-98.0); Mean Platelet Volume 11.9 fL (9.4-12.3); Monocytes Absolute Auto 0.5 X10*3/uL (0.1-1.2); Monocytes Percent Auto 7.8 % (2-11); Neutrophils Absolute Auto 5.5 x10*3/uL (2.0-8.3); Neutrophils Percent Auto 85.6 % (45-73); Platelet Count 103 X10*3/uL (160-400); Red Blood Count 2.36 X10*6/uL (4.20-5.50); Red Cell Distribution Width 18.3 % (11.0-16.0); White Blood Count 6.4 X10*3/uL (4.8-10.8)
[2023-12-12] MEDS: carvediloL 12.5 MG TABLET PO (09:15)
[2023-12-12] MEDS: hydrALAZINE HCl 50 MG TABLET PO (09:16)
[2023-12-12 09:17] LABS: ~Lactic Acid-LAB USE ONLY 1.6 mmol/L (0.5-2.0)
[2023-12-12] MEDS: ondansetron HCL 4 MG/2 ML VIAL IVPUSH ×2 (09:21→14:52)
--- NOTE | 2023-12-12 09:29 | PC.NURSE ---
Pt refused heparin s/c. Pt stated she is feeling nausea- PRN zofran given before adminstration of PO blood pressure medications
[2023-12-12 09:40] LABS: Alanine Aminotransferase 17 U/L (0-31); Albumin Level 3.1 g/dL (3.5-5.0); Alkaline Phosphatase 168 U/L (39-117); Anion Gap 14 (12-20); Aspartate Amino Transferase 26 U/L (5-31); Bilirubin Total 1.4 mg/dL (0.0-1.0); Blood Urea Nitrogen 40 mg/dL (9-16); Calcium 8.7 mg/dL (8.4-10.2); Carbon Dioxide 29 mmol/L (22-29); Chloride 100 mmol/L (96-108); Estimated Glomerular Filt Rate 9; Glucose Random 81 mg/dL (60-115); Sodium 139 mmol/L (135-145); Total Protein 6.4 g/dL (6.5-8.0)
--- NOTE | 2023-12-12 11:31 | MHC.CM.PN ---
IMM 12/11. Pt lives at home with her sister/SALT CUTTER/HCP Mary. Pt uses a wheelchair. Pt goes to HD at [facility] on //Sat. Pt will need assistance with BLS transport home at discharge. HCP on file and verified. PCP: Dr. Genevieve Casillas
[2023-12-12 11:36] LABS: Glucose, Whole Blood 71 mg/dL (60-115)
[2023-12-12 12:32] LABS: Glucose, Whole Blood 114 mg/dL (60-115)
--- NOTE | 2023-12-12 12:42 | PM.CNNEP ---
History of Present Illness Reason for Consult Consult date: 12/12/23 Chief Complaint Chief complaint: Severe sepsis History of Present Illness Narrative: 33/f with pmh of 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, peripheral arterial disease status post bilateral TMA, poorly controlled hypertension due to noncompliance with medications, chronic hypoxic respiratory failure on 4 L baseline supplemental oxygen, congestive heart failure with reduced ejection fraction, mood disorder, chronic pain with opioid seeking behavior, TTS hd, multiple hospitalization due to noncompliance with hemodialysis, PVD, multiple amputations, chronic wounds to her feet + infections was sent to the emergency department from dialysis for evaluation after she was found to be lethargic and unwell- . she was shaking and vomiting. sent in for concerns of sepsis via ambulance she completed the hd treatment on 12/11/23- next treatment due is . [facility] Past Medical History Medical History End stage chronic kidney disease Chronic kidney disease Anemia Chronic foot ulcer Plantar ulcer of left foot Major depressive disorder, single episode, severe ESRD (end stage renal disease) Non-compliance with renal dialysis Hypertensive urgency MDD (major depressive disorder), recurrent episode MDD (major depressive disorder) Renal failure Foot ulcer CKD (chronic kidney disease) Hypertension Diabetic foot Hyperkalemia Vomiting Renal failure Hypertension Migraine Chronic pain ESRD on dialysis Non-compliance with renal dialysis Hypertension End-stage renal disease (ESRD) Gastroparesis Diabetic foot ulcer associated with type 2 diabetes mellitus Hypertensive emergency Diabetes ESRD needing dialysis Cardiomyopathy HFrEF (heart failure with reduced ejection fraction) Metabolic acidosis delivery delivered Anemia in chronic kidney disease (CKD) CKD (chronic kidney disease) Headache, migraine Abnormal finding on echocardiogram Elevated troponin Chest pain Acute worsening of stage 3 chronic kidney disease Generalized edema Sepsis Cellulitis Pleural effusion CHF (congestive heart failure) (~06/07/22) Tachycardia Atypical chest pain Bone infection PAD (peripheral artery disease) Severe anemia Cellulitis and abscess of foot DM foot ulcer Osteomyelitis Asthma Depression with anxiety Diabetic retinopathy Type 2 diabetes mellitus with hyperglycemia, with long-term current use of insulin Blind right eye Diabetes Back pain Family History Family History Mother Coronary artery disease Myocardial infarction Stroke Diabetes mellitus Father Myocardial infarction Surgical History Surgical History Tubal ligation status Previous section Hx laparoscopic cholecystectomy Hx of surgical procedure (~09/11/23) 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 Social History Social History Household Members: Unknown / Unable to assess 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 Housing: Apartment Do you presently have visiting nurse or other home services: No Unable to assess alcohol history related to: Unknown Alcohol intake: never Comment: restraints Patient Tobacco Use Status: Never used Tobacco e-Cigarette/Vaping Use: Never Used Second Hand Smoke Exposure: No Advance Directives Date on File: 09/04/23 service: No Current occupational status: unemployed and disabled Gender identity: Female Meds Allergies Allergy/AdvReac Type Severity Reaction Status Date / Time morphine [MORPHINE] Allergy Intermediate Itching Verified 12/11/23 16:18 azithromycin [From Zithromax] Allergy Hives Verified 12/11/23 16:18 gabapentin Allergy Facial Verified 12/11/23 16:18 Swelling tramadol Allergy Facial Verified 12/11/23 16:18 Swelling vancomycin Allergy Anaphylaxis Verified 12/11/23 16:18 Active Medications: Current Medications Acetaminophen (Acetaminophen 325 Mg Tablet) 975 mg PO Q6H PRN PRN Reason: Pain, Mild (Pain Scale 1-3), fever or headache Carvedilol (Carvedilol 12.5 Mg Tablet) 12.5 mg PO BID [facility]; Protocol Last Admin: 12/12/23 09:15 Dose: 12.5 mg Glucose (Glucose Gel 15 Gm Gel..Gram.) 15 gm PO Q15M PRN; Protocol PRN Reason: per Hypoglycemia Standing Ord. Heparin Sodium (Porcine) (Heparin Sodium,Porcine 5,000 Unit/Ml Vial) 5,000 unit SUBCUT Q12H [facility] Last Admin: 12/12/23 09:05 Dose: Not Given Hydralazine HCl (Hydralazine Hcl 50 Mg Tablet) 50 mg PO TID [facility]; Protocol Last Admin: 12/12/23 09:16 Dose: 50 mg Doxycycline Hyclate 100 mg/ (Sodium Chloride) 250 mls @ 166.67 mls/hr IV Q12H [facility] Last Infusion: 12/12/23 10:48 Dose: Infused Dextrose (D10) 250 mls @ 750 mls/hr IV Q15M PRN; Protocol PRN Reason: per Hypoglycemia Standing Ord. Insulin Human Lispro (Insulin Lispro 100 Unit/Ml 3 Ml Vial) 0 unit SUBCUT QIDACHS [facility]; Protocol Last Admin: 12/12/23 11:31 Dose: Not Given Meropenem (Meropenem 1 Gm Vial) 1 gm IVPUSH Q24H [facility] Ondansetron HCl (Ondansetron Hcl 4 Mg/2 Ml Vial) 4 mg IVPUSH Q6H PRN PRN Reason: Nausea and Vomiting Last Admin: 12/12/23 09:21 Dose: 4 mg Pantoprazole Sodium (Pantoprazole Sodium 40 Mg/10 Ml Vial) 40 mg IVPUSH DAILY@0630 [facility] Last Admin: 12/12/23 06:05 Dose: 40 mg Sodium Chloride (0.9 % Sodium Chloride Flush 3 Ml Syringe) 3 ml IVFLUSH QSHIFT [facility] Last Admin: 12/12/23 08:50 Dose: Not Given Home Medications ?Medication ?Instructions ?Recorded ?Confirmed ?Last Taken ?Type No Known Home Meds 12/11/23 12/11/23 Unknown History Physical Exam Vital Signs: Last Vital Signs Temp 98.7 F 12/12/23 11:29 Pulse 80 12/12/23 11:29 Resp 14 12/12/23 11:29 BP 105/54 L 12/12/23 11:29 Pulse Ox 100 12/12/23 11:29 O2 Del Method Room Air 12/12/23 11:29 O2 Flow Rate 2 12/12/23 11:29 Oxygen Flow Rate 4 12/11/23 16:16 BMI result Body Mass Index 27.9 cvs: s1s2 Rs; cta ABd; soft Results Lab Results 12/12/23 08:57 12/12/23 08:57 Lab results: Chemistry 12/11/23 12/12/23 16:24 08:57 Sodium 142 139 Potassium 3.8 4.0 Carbon Dioxide 26 29 BUN 32 H 40 H Creatinine 4.09 H* 5.17 H* Calcium 9.6 D 8.7 D Hematology 12/11/23 12/12/23 16:24 08:57 WBC 2.9 L 6.4 Hgb 8.9 L 7.1 L D Plt Count 162 103 L D Assessment and Plan (1) ESRD (end stage renal disease): Status: Acute Plan ESRD: TTS; next planned for work up for sepsis per primary team Nephrogenic anemia HTN- now hypotensive, likelydue to sepsis, hold bp meds Non-compliance REC: HD per TTS scedule; meds as noted; epo as ordered will follow w team Procedures Date of Service Date of Service: 12/12/23
--- NOTE | 2023-12-12 13:11 | P.CDIM_ITS ---
PROVIDER RESPONSE TEXT: To clarify, the appropriate diagnosis supported by the clinical indicators: Other (explain): Diabetic foot wound QUERY TEXT: PHYSICIAN'S DOCUMENTATION REQUEST Date of Query: 12/12/2023 12:57 PM EDT Patient Name: Shereen Taylor Admit Date: 12/12/2023 Dear Tawny Taylor FISHERIES DIVER, A review of the medical record indicates additional documentation may be needed. Please review below and update the documentation accordingly. Clinical Indicators: Chronic bilateral foot wounds Wound care. Based on the above, could you please provide further information regarding the bilateral foot ulcer/w ound: skin breakdown only exposed fat layer muscle involvement without evidence of necrosis muscle necrosis bone involvement without evidence of necrosis bone necrosis Other (explain) Clinically unable to determine (explain) Thank you, Latoya Hooker RN Use of terms such as suspected, likely, concern for, or probable (associated with a specific diagnosi s that is being evaluated, monitored, or treated as if it exists) are acceptable and can be coded in the inpatient se tting, when documented at the time of discharge. Please use your independent medical judgment in providing your response. THIS QUERY IS PART OF THE PERMANENT MEDICAL RECORD
--- NOTE | 2023-12-12 14:55 | PC.NURSE ---
Patient complaint of severe abdominal pain after eating. Patient given zofran and offered tylenol PO but resfuses to take anything by mouth. patient also complains of itching all over body but refuses to take benadryl PO. made aware.
[2023-12-12 15:00] LABS: Glucose, Whole Blood 121 mg/dL (60-115)
[2023-12-12] MEDS: diphenhydrAMINE HCL 50 MG/ML VIAL 12.5 MG IVPUSH (15:11)
[2023-12-12 18:22] LABS: Glucose, Whole Blood 93 mg/dL (60-115)
[2023-12-12 21:48] LABS: Glucose, Whole Blood 86 mg/dL (60-115)
--- NOTE | 2023-12-13 04:58 | PC.NURSE ---
Patient refused to answer admission questions because she couldn't MD won't order IV Dilaudid for her. Patient also refused all her medications
--- NOTE | 2023-12-13 10:26 | PC.NURSE ---
Patient refusing all care/treatent unless she is given IV Dilaudid patient educated on the importance of complying with care, but she still refuses. HCP notified.
[2023-12-13] MEDS: ondansetron HCL 4 MG/2 ML VIAL IVPUSH (10:58)
[2023-12-13] MEDS: oxyCODONE HCl Immed Release 5 MG TABLET 10 MG PO ×2 (10:59→20:53)
[2023-12-13 11:35] VITALS: BP 167/94; PULSE 79; RESP 20; TEMP 36.9; O2SAT 100
[2023-12-13 11:35] LABS: Glucose, Whole Blood 141 mg/dL (60-115)
[2023-12-13] MEDS: diphenhydrAMINE HCL 50 MG/ML VIAL 12.5 MG IVPUSH (11:46)
--- NOTE | 2023-12-13 14:11 | HO.WOUND ---
Wound Consult: Initial 33yr old female? admitted to [facility] on 12/11/23 - See progress notes and H&P for detailed history.? This patient is known to this scientific writer for frequent readmissions see chart for history. Wound consult placed for Bilateral lower foot wounds and sacral wound. Overall foot wounds are improved the right foot wound is completely healed at this time. Left TMA site - resurfaced healed - no topical interventions needed at this time. Right Plantar Diabetic Wound - Healed - No topical interventions needed at this time. Right Lateral Diabetic Wound - Diabetic Wound - dry stable scabbed wound bed - scab flaking - will likely fall off soon - Protect from moisture and trauma - dry gauze dressing. Right Dorsal Diabetic Wound - Resurfaced - fragile newly epithelialized tissue but closed - Protect from moisture and trauma - dry gauze dressing. Left Heel - Diabetic Wound - improving overall dry dark stable eschar / scab wound bed - Iodosorb to keep dry and stable and allow for antimicrobial properties and break through biofilm. No fluctuance no induration no warmth noted - no s/s of source of infection noted. The patient does express localized pain to left heel. Left Plantar Diabetic Wound - improving overall dry dark wound bed callused edges - Iodosorb to keep dry and stable and allow for antimicrobial properties and break through biofilm. No fluctuance no induration no warmth noted - no s/s of source of infection noted. Coccyx Etiology: ?Unstageable Pressure Injury POA Wound Bed: Adherent yellow slough noted - pale pink surrounding wound bed Edges: ?Linear and macerated Pao wound: ?resolving irregular dark pigmentation No induration no fluctuance and no warmth noted - no s/s of source of infection noted. Goals of Treatment: ? Off Load Pressure and Triad to protect from friction and moisture and allow for moist wound healing. Open discussion with patient continue about compliance with care provided and recommended and benefits of allowing topical interventions to be completed to improve healing. She reports understanding. TT to Provider JOVON Cevallos with the above assessment. Recommendations: 1. Turn and Reposition every 2 hours and as needed for patient comfort.? Use pillows or wedges to support off loading positions. 2. Off Load all bony prominences with use of pillows and heel boots if needed.? Apply Preventative foams where needed. ? 3. Monitor for incontinence and moisture control, use barrier creams when needed for prevention and treatment. 4. Provide adequate and supplemental nutrition.? 5. Order or Continue low air loss mattress. 6. When applicable maintain blood glucose levels per Providers order. 7. Left Foot wounds - Elevate heels off of bed surface with heel protector boots or pillows. Cleanse with NS, moist gauze. Cover wound beds with Iodosorb (only available from wound nurse) dry ABD pad and gauze wrap. Change every 3 days. 8. right Foot - Elevate heels off of bed surface with pillows. Protect newly healed wounds from moisture and friciton. Moncure with Betadine, allow to dry cover with dry gauze. Change every 3 days. 8. Sacrococcygeal area - Off Load Pressure - Cleanse with PH balance spray or wipes, pat dry. ?Apply thin layer of Triad to wound bed - only pat and dab no scrub and rub when soiling occurs. Reapply thin layer PRN after each episode of incontinence or twice daily. Re-consult wound care Nurse for wound deterioration or wound changes.
--- NOTE | 2023-12-13 14:45 | P.PNIM_ITS ---
Subjective Subjective Date of Service: 12/13/23 Interval History: Seen and examined this morning Follow-up for bacteremia refused labs, POC this am and initially refused to go to dialysis. Did eventually agree to go to dialysis after lunch reporting Pain all over but not in a specific location no fever or chills Review of Systems Review of Systems: Yes all other systems are reviewed and are negative Constitutional Constitutional: Denies chills and Denies fever(s) Cardiovascular Cardiovascular: Denies chest pain, Denies palpitations and Denies dyspnea Respiratory Respiratory: Denies cough and Denies dyspnea Gastrointestinal Gastrointestinal: Denies abdominal pain Endocrine Endocrine: Denies palpitations Physical Exam 2 Vital Signs: Vital Signs: Last Vital Signs Temp 98.5 F 12/13/23 11:35 Pulse 79 12/13/23 11:35 Resp 20 12/13/23 11:35 BP 167/94 H 12/13/23 11:35 Pulse Ox 100 12/13/23 11:35 O2 Del Method Room Air 12/13/23 11:35 O2 Flow Rate 3 12/12/23 21:28 Oxygen Flow Rate 4 12/11/23 16:16 BMI result Body Mass Index 27.9 Const: General: cooperative, no acute distress, alert and awake Nutritional Appearance: average body habitus Orientation/consciousness: patient oriented x3 Eyes: Other: right eye blind Resp: Effort & Inspection: normal respiratory effort, able to speak in complete sentences, no respiratory distress and no use of accessory muscles Cardio: Rate: regular rate GI: Inspection: No distended Palpation (GI): Soft to palpation Skin: Other: left tma ; right plantar/lateral diabetic wound appears healed; right doral wound no open areas or drainage Left heel scab, no erythema, no warmth but some tenderness on palpation; left plantar wound no drainage, warmth, tenderness Neuro: General: patient oriented x3, moves all extremities and CN's II-XI intact bilaterally Objective Data Active Medications Acetaminophen (Acetaminophen 325 Mg Tablet) 975 mg PO Q6H PRN PRN Reason: Pain, Mild (Pain Scale 1-3), fever or headache Carvedilol (Carvedilol 12.5 Mg Tablet) 12.5 mg PO BID [facility]; Protocol Last Admin: 12/13/23 14:18 Dose: Not Given Documented By: YOLIS Non-Admin Reason: Patient Refused Diphenhydramine HCl (Diphenhydramine Hcl 25 Mg Capsule) 25 mg PO Q6H PRN PRN Reason: Pruritus Glucose (Glucose Gel 15 Gm Gel..Gram.) 15 gm PO Q15M PRN; Protocol PRN Reason: per Hypoglycemia Standing Ord. Heparin Sodium (Porcine) (Heparin Sodium,Porcine 5,000 Unit/Ml Vial) 5,000 unit SUBCUT Q12H [facility] Last Admin: 12/13/23 11:03 Dose: Not Given Documented By: YOILS Non-Admin Reason: Patient Refused Hydralazine HCl (Hydralazine Hcl 50 Mg Tablet) 50 mg PO TID [facility]; Protocol Last Admin: 12/13/23 14:19 Dose: Not Given Documented By: YOLIS Non-Admin Reason: Patient Refused Doxycycline Hyclate 100 mg/ (Sodium Chloride) 250 mls @ 166.67 mls/hr IV Q12H [facility] Last Admin: 12/13/23 14:19 Dose: Not Given Documented By: YOLIS Non-Admin Reason: Patient Refused Dextrose (D10) 250 mls @ 750 mls/hr IV Q15M PRN; Protocol PRN Reason: per Hypoglycemia Standing Ord. Insulin Human Lispro (Insulin Lispro 100 Unit/Ml 3 Ml Vial) 0 unit SUBCUT QIDACHS [facility]; Protocol Last Admin: 12/13/23 11:47 Dose: Not Given Documented By: YOLIS Non-Admin Reason: No Insulin Coverage Meropenem (Meropenem 1 Gm Vial) 1 gm IVPUSH Q24H [facility] Last Admin: 12/12/23 22:52 Dose: Not Given Documented By: DALLAS Non-Admin Reason: Patient Refused Ondansetron HCl (Ondansetron Hcl 4 Mg/2 Ml Vial) 4 mg IVPUSH Q6H PRN PRN Reason: Nausea and Vomiting Last Admin: 12/13/23 10:58 Dose: 4 mg Documented By: YOLIS Oxycodone HCl (Oxycodone Hcl Immed Release 5 Mg Tablet) 10 mg PO Q6H PRN PRN Reason: Pain, Moderate(Pain Scale 4-6) Last Admin: 12/13/23 10:59 Dose: 10 mg Documented By: YOLIS Pantoprazole Sodium (Pantoprazole Sodium 40 Mg/10 Ml Vial) 40 mg IVPUSH DAILY@0630 [facility] Last Admin: 12/13/23 06:34 Dose: Not Given Documented By: DALLAS Non-Admin Reason: Patient Refused Sodium Chloride (0.9 % Sodium Chloride Flush 3 Ml Syringe) 3 ml IVFLUSH QSHIFT [facility] Last Admin: 12/13/23 14:17 Dose: Not Given Documented By: YOLIS Non-Admin Reason: No Insulin Coverage Labs 12/12/23 08:57 12/12/23 08:57 Labs: Laboratory Results - last 24 hr 12/12/23 12/12/23 12/12/23 14:56 18:17 21:44 POC Glucose 121 H 93 86 12/13/23 11:32 POC Glucose 141 H Microbiology Microbiology Results: Microbiology 12/11/23 16:24 Blood Culture - Preliminary Blood - Venous Prelim: GNR Gram Stain only 12/11/23 16:24 Blood Culture - Preliminary Blood - Venous No growth after 24 hours. Assessment and Plan (1) Bacteremia: Status: Acute Plan This is a 33 y/o woman with past medical history significant for ESRD noncompliant with HD, diabetic retinopathy with blindness, PVD, multiple amputations, uncontrolled hypertension,HFrEF, chronic pain, multiple hospitalizations due to noncompliance with hemodialysis, recent admission for Pseudomonas bacteremia who was sent from dialysis with fever found to have recurrent bacteremia Severe sepsis likely due to bacteremia (recently found to have bacteremia by Pseudomonas); Blood cultures growing - GNR empiric IV antibiotic therapy with meropenem and doxycycline (MRSA coverage -she is allergic to vancomycin). s/p IVFs 500 ml NS bolus UA ordered, not obtained yet ID consult pending Toxic metabolic encephalopathy secondary to above. resolved, awake, alert and at baseline Uncontrolled hypertension. continue home meds Carvedilol and hydralazine per pharmacy and sister (pt [employer]) pt has picked up meds for months Torsemide and nifedipine were discontinued during last hospitalization. Type 2 diabetes mellitus. follow POCs. Does not take meds at home Insulin sliding scale only for now. Chronic bilateral foot wounds. Does not appear to be infected at this time, appears improved from previous admission Continue local Wound care as per wound care nurse recommendations Due to pain reported in left foot, will obtain left foot x-ray ESRD. has only been going to HD two days/week Nephrology following Getting hemodialysis today (12/12) Chronic anemia due to chronic disease Hemoglobin at baseline Refused follow-up labs HFrEF & right HF EF 40-45%; moderately reduced RV systolic dysfunction No evidence of overload, at this time, continue dialysis DVT prophylaxis: heparin GI prophylaxis: Protonix IV Code status: Full Patient requires ongoing inpatient stay for bacteremia requiring IV antibiotics, specialist evaluation Quality Stroke Does the patient have a stroke diagnosis?: No VTE Prior VTE?: No VTE Risk Level:: Medical - moderate - high VTE Device Contraindication: Treatment Not Indicated VTE Drug Contraindication: N/A - Med Ordered
[2023-12-13 16:00] VITALS: BP 163/79; PULSE 89; RESP 18; TEMP 36.6; O2SAT 100
[2023-12-13] MEDS: hydrALAZINE HCl 50 MG TABLET PO (16:47)
[2023-12-13 16:48] LABS: Glucose, Whole Blood 98 mg/dL (60-115)
[2023-12-13 19:38] VITALS: BP 131/82; PULSE 83; RESP 18; TEMP 37.3; O2SAT 100
[2023-12-13] MEDS: Meropenem 1 GM VIAL IVPUSH (20:54)
[2023-12-13 20:58] LABS: Glucose, Whole Blood 142 mg/dL (60-115)
[2023-12-13] MEDS: Doxycycline Hyclate 100 MG in 0.9 % Sodium Chloride 250 ML 166.67 MG IV (21:05)
[2023-12-13] MEDS: 0.9 % Sodium Chloride Flush 3 ML SYRINGE IVFLUSH (21:06)
--- NOTE | 2023-12-13 22:24 | P.PNNP_ITS ---
Subjective Subjective Date of Service: 12/13/23 Interval history: Seen and examined this morning Follow-up for bacteremia refused labs, POC this am and initially refused to go to dialysis. Did eventually agree to go to dialysis after lunch pt seen in dialysis Physical Exam 2 Vital Signs: Vital Signs: Last Vital Signs Temp 99.2 F 12/13/23 19:38 Pulse 83 12/13/23 19:38 Resp 18 12/13/23 19:38 BP 131/82 12/13/23 19:38 Pulse Ox 100 12/13/23 19:38 O2 Del Method Room Air 12/13/23 19:38 O2 Flow Rate 3 12/12/23 21:28 Oxygen Flow Rate 4 12/11/23 16:16 BMI result Body Mass Index 27.9 cvs: s1s2 RS; cta ABd; soft Objective Data Labs 12/12/23 08:57 12/12/23 08:57 Labs: Laboratory Results - last 24 hr 12/13/23 12/13/23 12/13/23 11:32 16:45 20:49 POC Glucose 141 H 98 142 H Microbiology Microbiology Results: Microbiology 12/11/23 16:24 Blood - Venous Blood Culture - Preliminary No growth after 48 hours. 12/11/23 16:24 Blood - Venous Blood Culture - Preliminary Prelim: GNR Gram Stain only Procedures Date of Service Date of Service: 12/13/23 Assessment & Plan Assessment and plan (1) ESRD (end stage renal disease): Status: Acute Plan ESRD: TTS; next planned for work up for sepsis per primary team Nephrogenic anemia HTN- now hypotensive, likelydue to sepsis, hold bp meds Non-compliance REC: HD per TTS scedule; meds as noted; epo as ordered will follow w team Time Spent With Patient Time: Total time managing care of this patient today ____ minutes. Progress Note: Quality Stroke Does the patient have a stroke diagnosis?: No
[2023-12-13 23:20] VITALS: BP 119/74; PULSE 81; RESP 18; TEMP 36.6; O2SAT 100
[2023-12-14] MEDS: Pantoprazole Sodium 40 MG/10 ML VIAL IVPUSH (06:04)
[2023-12-14 06:22] VITALS: BP 129/71; PULSE 77; RESP 18; TEMP 36.3; O2SAT 96
[2023-12-14 08:00] VITALS: BP 149/81; PULSE 79; PULSE 81; RESP 18; TEMP 36.7; O2SAT 100
[2023-12-14 08:14] LABS: Glucose, Whole Blood 122 mg/dL (60-115)
[2023-12-14] MEDS: carvediloL 12.5 MG TABLET PO (08:38)
[2023-12-14] MEDS: Doxycycline Hyclate 100 MG in 0.9 % Sodium Chloride 250 ML 166.67 MG IV (08:38)
[2023-12-14] MEDS: hydrALAZINE HCl 50 MG TABLET PO ×2 (08:38→15:34)
[2023-12-14] MEDS: 0.9 % Sodium Chloride Flush 3 ML SYRINGE IVFLUSH ×2 (08:41→20:33)
[2023-12-14] MEDS: diphenhydrAMINE HCL 50 MG/ML VIAL 12.5 MG IVPUSH ×2 (11:35→17:51)
[2023-12-14] MEDS: oxyCODONE HCl Immed Release 5 MG TABLET 10 MG PO ×2 (11:35→17:51)
[2023-12-14 12:00] VITALS: BP 162/90; PULSE 85; RESP 20; TEMP 36.2; O2SAT 100
[2023-12-14 12:14] LABS: Glucose, Whole Blood 124 mg/dL (60-115)
--- NOTE | 2023-12-14 12:47 | MHC.CM.PN ---
Per MD rounds patient is not medically cleared for discharge. Per Respiratory Home O2 will be set up as a new patient. Prior to admit [facility] notified the patient that her equipment was going to be removed from her home. [facility] Respiratory department has looked into the issue. An error with [facility] documentation was the reason that [facility] was pulling equipment out of the patients home. [facility] Respiratory will submit new patient referral+script to [facility]. The oxygen will be in place at discharge. DP home resume HD @ [facility]. Transport via S.
--- NOTE | 2023-12-14 13:24 | HO.PM.IMPN ---
Subjective Subjective Date of Service: 12/14/23 Interval History: Seen and examined this morning Follow-up for bacteremia No overnight events No specific complaints this morning Refused a.m. labs Review of Systems Review of Systems: Yes all other systems are reviewed and are negative Constitutional Constitutional: Denies chills and Denies fever(s) Cardiovascular Cardiovascular: Denies chest pain, Denies palpitations and Denies dyspnea Respiratory Respiratory: Denies cough and Denies dyspnea Endocrine Endocrine: Denies palpitations Physical Exam Vital Signs: Vital Signs: Last Vital Signs Temp 97.1 F 12/14/23 12:00 Pulse 85 12/14/23 12:00 Resp 20 12/14/23 12:00 BP 162/90 H 12/14/23 12:00 Pulse Ox 100 12/14/23 12:00 O2 Del Method Nasal Cannula 12/14/23 12:00 O2 Flow Rate 2 12/14/23 12:00 Oxygen Flow Rate 4 12/11/23 16:16 BMI result Body Mass Index 27.9 Const: General: cooperative, no acute distress, alert and awake Nutritional Appearance: average body habitus Orientation/consciousness: patient oriented x3 Eyes: Other: right eye blind Resp: Effort & Inspection: normal respiratory effort, able to speak in complete sentences, no respiratory distress and no use of accessory muscles Cardio: Rate: regular rate GI: Inspection: No distended Palpation (GI): Soft to palpation Skin: Other: left tma ; right plantar/lateral diabetic wound appears healed; right doral wound no open areas or drainage Left heel scab, no erythema, no warmth but some tenderness on palpation; left plantar wound no drainage, warmth, tenderness Neuro: General: patient oriented x3, moves all extremities and CN's II-XI intact bilaterally Objective Data Active Medications Acetaminophen (Acetaminophen 325 Mg Tablet) 975 mg PO Q6H PRN PRN Reason: Pain, Mild (Pain Scale 1-3), fever or headache Carvedilol (Carvedilol 12.5 Mg Tablet) 12.5 mg PO BID [facility]; Protocol Last Admin: 12/14/23 08:38 Dose: 12.5 mg Documented By: SUSAN Diphenhydramine HCl (Diphenhydramine Hcl 50 Mg/Ml Vial) 12.5 mg IVPUSH Q6H PRN PRN Reason: pruritis Last Admin: 12/14/23 11:35 Dose: 12.5 mg Documented By: SUSAN Glucose (Glucose Gel 15 Gm Gel..Gram.) 15 gm PO Q15M PRN; Protocol PRN Reason: per Hypoglycemia Standing Ord. Heparin Sodium (Porcine) (Heparin Sodium,Porcine 5,000 Unit/Ml Vial) 5,000 unit SUBCUT Q12H [facility] Last Admin: 12/14/23 08:42 Dose: Not Given Documented By: SUSAN Non-Admin Reason: Patient Refused Hydralazine HCl (Hydralazine Hcl 50 Mg Tablet) 50 mg PO TID [facility]; Protocol Last Admin: 12/14/23 08:38 Dose: 50 mg Documented By: SUSAN Doxycycline Hyclate 100 mg/ (Sodium Chloride) 250 mls @ 166.67 mls/hr IV Q12H [facility] Last Infusion: 12/14/23 10:34 Dose: Infused Documented By: SUSAN Dextrose (D10) 250 mls @ 750 mls/hr IV Q15M PRN; Protocol PRN Reason: per Hypoglycemia Standing Ord. Insulin Human Lispro (Insulin Lispro 100 Unit/Ml 3 Ml Vial) 0 unit SUBCUT QIDACHS [facility]; Protocol Last Admin: 12/14/23 12:15 Dose: Not Given Documented By: SUSAN Non-Admin Reason: No Insulin Coverage Meropenem (Meropenem 1 Gm Vial) 1 gm IVPUSH Q24H [facility] Last Admin: 12/13/23 20:54 Dose: 1 gm Documented By: MARIE Ondansetron HCl (Ondansetron Hcl 4 Mg/2 Ml Vial) 4 mg IVPUSH Q6H PRN PRN Reason: Nausea and Vomiting Last Admin: 12/13/23 10:58 Dose: 4 mg Documented By: FOSTEKAlis Oxycodone HCl (Oxycodone Hcl Immed Release 5 Mg Tablet) 10 mg PO Q6H PRN PRN Reason: Pain, Moderate(Pain Scale 4-6) Last Admin: 12/14/23 11:35 Dose: 10 mg Documented By: SUSAN Pantoprazole Sodium (Pantoprazole Sodium 40 Mg/10 Ml Vial) 40 mg IVPUSH DAILY@0630 [facility] Last Admin: 12/14/23 06:04 Dose: 40 mg Documented By: MARIE Sodium Chloride (0.9 % Sodium Chloride Flush 3 Ml Syringe) 3 ml IVFLUSH QSHIFT [facility] Last Admin: 12/14/23 08:41 Dose: 3 ml Documented By: ROSELIAARCaryl [facility] 12/12/23 08:57 12/12/23 08:57 Labs: Laboratory Results - last 24 hr 12/13/23 12/13/23 12/14/23 16:45 20:49 08:05 POC Glucose 98 142 H 122 H 12/14/23 12:10 POC Glucose 124 H Microbiology Microbiology Results: Microbiology 12/11/23 16:24 Blood Culture - Preliminary Blood - Venous Gram negative laurie 12/11/23 16:24 Blood Culture - Preliminary Blood - Venous No growth after 48 hours. Assessment and Plan (1) Bacteremia: Status: Acute Plan This is a 33 y/o woman with past medical history significant for ESRD noncompliant with HD, diabetic retinopathy with blindness, PVD, multiple amputations, uncontrolled hypertension,HFrEF, chronic pain, multiple hospitalizations due to noncompliance with hemodialysis, recent admission for Pseudomonas bacteremia who was sent from dialysis with fever found to have recurrent bacteremia Severe sepsis likely due to bacteremia (previous admission for Pseudomonas bacteremia and was d/c with cefepime post HD ) Blood cultures growing - GNR empiric IV antibiotic therapy with meropenem and doxycycline. will stop doxy, likely will transitioned to IV Zosyn, ID recommends 4 weeks IV antibiotic UA ordered, not obtained yet, no urinary symptoms ID following Toxic metabolic encephalopathy secondary to above. resolved, awake, alert and at baseline Uncontrolled hypertension. 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 Type 2 diabetes mellitus. follow POCs. Does not take meds at home Insulin sliding scale only for now. Chronic bilateral foot wounds. Does not appear to be infected at this time, appears improved from previous admission Continue local Wound care as per wound care nurse recommendations xray with chronic changes, less likely source of infection ESRD. h/o non-compliance and has only been going to HD two days/week Nephrology following last hemodialysis 12/12 Chronic anemia due to chronic disease Hemoglobin at baseline has Refused follow-up labs thus far HFrEF & right HF EF 40-45%; moderately reduced RV systolic dysfunction No evidence of overload, at this time, continue dialysis DVT prophylaxis: heparin Code status: Full Patient requires ongoing inpatient stay for bacteremia requiring IV antibiotics, specialist evaluation Quality Stroke Does the patient have a stroke diagnosis?: No VTE Prior VTE?: No VTE Risk Level:: Medical - moderate - high VTE Device Contraindication: Treatment Not Indicated VTE Drug Contraindication: N/A - Med Ordered
--- NOTE | 2023-12-14 13:43 | P.PNNP_ITS ---
Subjective Subjective Date of Service: 12/14/23 Interval history: Seen and examined this morning Follow-up for bacteremia No overnight events No specific complaints this morning Refused a.m. labs Physical Exam 2 Vital Signs: Vital Signs: Last Vital Signs Temp 97.1 F 12/14/23 12:00 Pulse 85 12/14/23 12:00 Resp 20 12/14/23 12:00 BP 162/90 H 12/14/23 12:00 Pulse Ox 100 12/14/23 12:00 O2 Del Method Nasal Cannula 12/14/23 12:00 O2 Flow Rate 2 12/14/23 12:00 Oxygen Flow Rate 4 12/11/23 16:16 BMI result Body Mass Index 27.9 cvs: s1s2 Rs; cta ABd; soft Objective Data Labs 12/14/23 14:42 12/14/23 14:41 Labs: Laboratory Results - last 24 hr 12/13/23 12/13/23 12/14/23 16:45 20:49 08:05 POC Glucose 98 142 H 122 H 12/14/23 12:10 POC Glucose 124 H Microbiology Microbiology Results: Microbiology 12/11/23 16:24 Blood - Venous Blood Culture - Preliminary Gram negative laurie 12/11/23 16:24 Blood - Venous Blood Culture - Preliminary No growth after 48 hours. 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 Progress Note: Quality Stroke Does the patient have a stroke diagnosis?: No
[2023-12-14 14:59] LABS: MANUAL DIFF FLAG NO
[2023-12-14 15:00] LABS: Basophils Percent Auto 0.5 % (0-2); Eosinophils Absolute Auto 0.2 X10*3/uL (0.0-0.4); Hemoglobin 7.1 g/dl (12.0-16.0); Imm Gran Abs Auto 0.03 X10*3/uL (0.00-0.03); Imm Gran Pct Auto 0.8 % (0.0-0.4); Lymphocytes Absolute Auto 0.6 X10*3/uL (1.2-4.9); Lymphocytes Percent Auto 15.8 % (20-40); Mean Corpuscular HGB Conc 32.3 g/dl (31.0-35.0); Mean Corpuscular Hemoglobin 30.7 pg (27.0-33.0); Mean Corpuscular Volume 95.2 fL (80.0-98.0); Monocytes Absolute Auto 0.7 X10*3/uL (0.1-1.2); Neutrophils Absolute Auto 2.2 x10*3/uL (2.0-8.3); Neutrophils Percent Auto 59.9 % (45-73); Platelet Count 115 X10*3/uL (160-400); Red Blood Count 2.31 X10*6/uL (4.20-5.50); White Blood Count 3.7 X10*3/uL (4.8-10.8)
[2023-12-14 15:15] LABS: Anion Gap 14 (12-20); Blood Urea Nitrogen 36 mg/dL (9-16); Calcium 8.2 mg/dL (8.4-10.2); Carbon Dioxide 20 mmol/L (22-29); Chloride 104 mmol/L (96-108); Estimated Glomerular Filt Rate 12; Glucose Random 102 mg/dL (60-115); Sodium 134 mmol/L (135-145)
[2023-12-14 16:00] VITALS: BP 124/67; PULSE 82; RESP 18; TEMP 36.6; O2SAT 99
[2023-12-14 16:59] LABS: Glucose, Whole Blood 107 mg/dL (60-115)
[2023-12-14] MEDS: ondansetron HCL 4 MG/2 ML VIAL IVPUSH (17:53)
[2023-12-14 19:21] VITALS: BP 106/51; PULSE 76; RESP 16; TEMP 36.2; O2SAT 99
[2023-12-14] MEDS: Meropenem 1 GM VIAL IVPUSH (20:33)
[2023-12-14 20:44] LABS: Glucose, Whole Blood 95 mg/dL (60-115)
[2023-12-14 23:32] VITALS: BP 128/75; PULSE 81; RESP 18; TEMP 36.4; O2SAT 98
[2023-12-15] MEDS: oxyCODONE HCl Immed Release 5 MG TABLET 10 MG PO ×4 (00:26→20:52)
[2023-12-15] MEDS: diphenhydrAMINE HCL 50 MG/ML VIAL 12.5 MG IVPUSH ×3 (00:27→20:55)
[2023-12-15] MEDS: ondansetron HCL 4 MG/2 ML VIAL IVPUSH ×3 (00:27→20:55)
[2023-12-15 06:25] VITALS: BP 147/83; PULSE 81; RESP 18; TEMP 37.1; O2SAT 100
[2023-12-15 07:11] LABS: Glucose, Whole Blood 100 mg/dL (60-115)
[2023-12-15] MEDS: carvediloL 12.5 MG TABLET PO (08:10)
[2023-12-15] MEDS: hydrALAZINE HCl 50 MG TABLET PO ×2 (08:10→14:41)
[2023-12-15] MEDS: 0.9 % Sodium Chloride Flush 3 ML SYRINGE IVFLUSH ×3 (08:10→21:01)
[2023-12-15 12:00] VITALS: BP 160/79; PULSE 80; RESP 18; TEMP 36.6; O2SAT 100
[2023-12-15 12:16] LABS: Glucose, Whole Blood 136 mg/dL (60-115)
--- NOTE | 2023-12-15 15:20 | HO.PM.IMPN ---
Subjective Subjective Date of Service: 12/15/23 Interval History: seen and examined this morning - seen in dialysis follow up for bacteremia no overnight events no specific complaints Review of Systems Review of Systems: Yes all other systems are reviewed and are negative Constitutional Constitutional: Denies chills and Denies fever(s) Cardiovascular Cardiovascular: Denies chest pain and Denies palpitations Gastrointestinal Gastrointestinal: Denies abdominal pain, Denies nausea and Denies vomiting Endocrine Endocrine: Denies palpitations Physical Exam Vital Signs: Vital Signs: Last Vital Signs Temp 97.8 F 12/15/23 12:00 Pulse 80 12/15/23 12:00 Resp 18 12/15/23 12:00 BP 160/79 H 12/15/23 12:00 Pulse Ox 100 12/15/23 12:00 O2 Del Method Room Air 12/15/23 12:00 O2 Flow Rate 2 12/15/23 06:25 Oxygen Flow Rate 4 12/11/23 16:16 BMI result Body Mass Index 27.9 Const: General: cooperative, no acute distress, alert and awake Nutritional Appearance: average body habitus Orientation/consciousness: patient oriented x3 Eyes: Other: right eye blind Resp: Effort & Inspection: normal respiratory effort, able to speak in complete sentences, no respiratory distress and no use of accessory muscles Cardio: Rate: regular rate GI: Inspection: No distended Palpation (GI): Soft to palpation Skin: Other: left tma ; right plantar/lateral diabetic wound appears healed; right doral wound no open areas or drainage Left heel scab, no erythema, no warmth but some tenderness on palpation; left plantar wound no drainage, warmth, tenderness Neuro: General: patient oriented x3, moves all extremities and CN's II-XI intact bilaterally Objective Data Active Medications Acetaminophen (Acetaminophen 325 Mg Tablet) 975 mg PO Q6H PRN PRN Reason: Pain, Mild (Pain Scale 1-3), fever or headache Carvedilol (Carvedilol 12.5 Mg Tablet) 12.5 mg PO BID [facility]; Protocol Last Admin: 12/15/23 08:10 Dose: 12.5 mg Documented By: MALLIKA Diphenhydramine HCl (Diphenhydramine Hcl 50 Mg/Ml Vial) 12.5 mg IVPUSH Q6H PRN PRN Reason: pruritis Last Admin: 12/15/23 08:08 Dose: 12.5 mg Documented By: MALLIKA Epoetin Bladimir (Epoetin Bladimir 20,000 Unit/Ml Vial) 20,000 unit IVPUSH DIALYSIS X2 TUTA [facility] Glucose (Glucose Gel 15 Gm Gel..Gram.) 15 gm PO Q15M PRN; Protocol PRN Reason: per Hypoglycemia Standing Ord. Heparin Sodium (Porcine) (Heparin Sodium,Porcine 5,000 Unit/Ml Vial) 5,000 unit SUBCUT Q12H [facility] Last Admin: 12/15/23 12:26 Dose: Not Given Documented By: MALLIKA Non-Admin Reason: No Insulin Coverage Hydralazine HCl (Hydralazine Hcl 50 Mg Tablet) 50 mg PO TID [facility]; Protocol Last Admin: 12/15/23 14:41 Dose: 50 mg Documented By: MALLIKA Dextrose (D10) 250 mls @ 750 mls/hr IV Q15M PRN; Protocol PRN Reason: per Hypoglycemia Standing Ord. Insulin Human Lispro (Insulin Lispro 100 Unit/Ml 3 Ml Vial) 0 unit SUBCUT QIDACHS [facility]; Protocol Last Admin: 12/15/23 14:47 Dose: Not Given Documented By: MALLIKA Non-Admin Reason: No Insulin Coverage Meropenem (Meropenem 1 Gm Vial) 1 gm IVPUSH Q24H [facility] Last Admin: 12/14/23 20:33 Dose: 1 gm Documented By: MARIE Ondansetron HCl (Ondansetron Hcl 4 Mg/2 Ml Vial) 4 mg IVPUSH Q6H PRN PRN Reason: Nausea and Vomiting Last Admin: 12/15/23 14:41 Dose: 4 mg Documented By: MALLIKA Oxycodone HCl (Oxycodone Hcl Immed Release 5 Mg Tablet) 10 mg PO Q6H PRN PRN Reason: Pain, Moderate(Pain Scale 4-6) Last Admin: 12/15/23 14:40 Dose: 10 mg Documented By: MALLIKA Sodium Chloride (0.9 % Sodium Chloride Flush 3 Ml Syringe) 3 ml IVFLUSH QSHIFT [facility] Last Admin: 12/15/23 14:46 Dose: 3 ml Documented By: MALLIKA Labs 12/14/23 14:42 12/14/23 14:41 Labs: Laboratory Results - last 24 hr 12/14/23 12/14/23 12/15/23 16:39 20:33 07:04 POC Glucose 107 95 100 12/15/23 12:09 POC Glucose 136 H Microbiology Microbiology Results: Microbiology 12/11/23 16:24 Blood Culture - Final Blood - Venous Stenotrophomonas maltophilia Assessment and Plan (1) Bacteremia: Status: Acute Plan This is a 33 y/o woman with past medical history significant for ESRD noncompliant with HD, diabetic retinopathy with blindness, PVD, multiple amputations, uncontrolled hypertension,HFrEF, chronic pain, multiple hospitalizations due to noncompliance with hemodialysis, recent admission for Pseudomonas bacteremia who was sent from dialysis with fever found to have recurrent bacteremia Severe sepsis likely due to bacteremia (previous admission for Pseudomonas bacteremia and was d/c with cefepime post HD ) Blood cultures growing - stenotrophomonas maltophilia empiric IV antibiotic therapy with meropenem.ID recommends 4 weeks IV antibiotic, probable bactrim - will discuss with nephrology if repeat blood cultures negative, no need to remove permcath ID following Toxic metabolic encephalopathy secondary to above. resolved, awake, alert and at baseline Uncontrolled hypertension. 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 Type 2 diabetes mellitus. follow POCs. Does not take meds at home Insulin sliding scale only for now. Chronic bilateral foot wounds. Does not appear to be infected at this time, appears improved from previous admission Continue local Wound care as per wound care nurse recommendations xray with chronic changes, less likely source of infection ESRD. 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
[2023-12-15 15:49] VITALS: BP 137/73; PULSE 85; RESP 19; TEMP 36.7; O2SAT 100
[2023-12-15 15:50] LABS: Glucose, Whole Blood 123 mg/dL (60-115)
[2023-12-15 20:00] VITALS: BP 166/65; PULSE 85; RESP 18; TEMP 36.1; O2SAT 100
[2023-12-15] MEDS: Meropenem 1 GM VIAL IVPUSH (20:56)
[2023-12-15 21:32] LABS: Glucose, Whole Blood 105 mg/dL (60-115)
[2023-12-16] VITALS: BP 111/53; PULSE 87; RESP 18; TEMP 36.3; O2SAT 98
[2023-12-16 04:00] VITALS: BP 134/67; PULSE 83; RESP 16; TEMP 36.3; O2SAT 100
[2023-12-16] MEDS: oxyCODONE HCl Immed Release 5 MG TABLET 10 MG PO ×3 (05:02→18:29)
[2023-12-16] MEDS: ondansetron HCL 4 MG/2 ML VIAL IVPUSH ×2 (05:04→12:03)
[2023-12-16] MEDS: diphenhydrAMINE HCL 50 MG/ML VIAL 12.5 MG IVPUSH ×3 (05:06→18:29)
[2023-12-16 08:00] VITALS: BP 128/62; PULSE 88; RESP 20; TEMP 36.3; O2SAT 100
[2023-12-16] MEDS: hydrALAZINE HCl 50 MG TABLET PO ×2 (08:48→13:44)
[2023-12-16] MEDS: carvediloL 12.5 MG TABLET PO (08:48)
[2023-12-16 11:12] LABS: Glucose, Whole Blood 86 mg/dL (60-115)
[2023-12-16 11:37] VITALS: BP 134/69; PULSE 86; RESP 19; TEMP 36.4; O2SAT 100
[2023-12-16 11:43] LABS: Glucose, Whole Blood 117 mg/dL (60-115)
[2023-12-16] MEDS: 0.9 % Sodium Chloride Flush 3 ML SYRINGE IVFLUSH ×2 (12:09→18:28)
--- NOTE | 2023-12-16 12:34 | PM.DS ---
DS: Providers Provider Date of Service: 12/16/23 <JOVON Giron - Last Filed: 12/28/23 18:25> 12/17/23 <Tawny Taylor NP - Last Filed: 12/17/23 09:17> Date of admission: 12/11/23 20:12 <JOVON Giron - Last Filed: 12/28/23 18:25> Date of discharge: 12/16/23 <OJVON Giron - Last Filed: 12/28/23 18:25> 12/17/23 <Tawny Taylor NP - Last Filed: 12/17/23 09:17> Primary care physician: Genevieve Casillas MD <JOVON Giron - Last Filed: 12/28/23 18:25> Consults: 12/11/23 21:01 Consult to Nephrology Routine Consulting Provider: [facility] Reason for consultation: Routine HD Has provider been notified: No Consult to Wound Care Routine Reason for consultation: Chronic wound to the feet. 12/13/23 12:46 Consult to Infectious Diseases Routine Consulting Provider: [facility] Reason for consultation: GNR bacteremia Has provider been notified: No <JOVON Giron - Last Filed: 12/28/23 18:25> Attending physician on discharge: Cheyenne Sears <JOVON Giron - Last Filed: 12/28/23 18:25> Discharging clinician: Angela Ulloa <JOVON Giron - Last Filed: 12/28/23 18:25> DS: Diagnosis Discharge Diagnosis (1) Bacteremia: Status: Acute <JOVON Giron - Last Filed: 12/28/23 18:25> DS: Summary Hospital Course Hospital Course: From H&P on the day of admission Shereen Taylor is a 33 years old woman with past medical history significant for end-stage renal disease on hemodialysis (TTS -usually refusing HD on Saturdays), multiple hospitalization due to noncompliance with hemodialysis, diabetic retinopathy with blindness, PVD, multiple amputations, chronic wounds to her feet + infections, poorly uncontrolled hypertension, HFrEF, depression and chronic pain was sent to the emergency department from dialysis for evaluation after she was found to be lethargic. She has missed 2 of her hemodialysis. She was recently hospitalized and admitted to the ICU due to septic shock + COVID requiring vasopressors and endotracheal intubation. She was found to have bacteremia. The patient is currently quite ill and unable to provide meaningful HPI. She only complains of generalized fatigue and body aches. She denied chest pain or shortness breath. In the ED, she was found to have marked hypertension, fever of 103, tachycardia and tachypnea. Blood workup was remarkable for neutropenia of 2.9, hemoglobin is 8.9 which is around her baseline and platelets 162. Creatinine is 4.09 and BUN 32. Anion gap is elevated at 21. Last glucose is 125. There is mild lactic acidosis that normalized 2.3--> 1.3. Troponin is 28.9, alk-phos 236 and BNP 3904. Viral testing for COVID-19, influenza and RSV is negative. CXR showed no acute cardiopulmonary findings. ECG shows sinus tachycardia, heart rate 116 bpm, RBBB. ED tx: D5 1 L bolus, ceftriaxone 1 g IV. Hospital course by problem: Severe sepsis likely due to bacteremia (previous admission for Pseudomonas bacteremia and was d/c with cefepime post HD ) Blood cultures growing - stenotrophomonas maltophilia empiric IV antibiotic therapy with meropenem initially. Discussed with ID, recommend 4 weeks of antibiotics with oral Bactrim. Discussed with nephrology and they are in agreement. Should take after dialysis on dialysis days. Blood cultures negative at 48 hours therefore no need for removal of PermCath. Discussed with the patient importance of compliance both taking antibiotics as well as with dialysis Toxic metabolic encephalopathy secondary to above. resolved Uncontrolled hypertension. continue home meds Carvedilol and hydralazine per pharmacy and sister (pt [facility]) pt has not picked up meds for months Torsemide and nifedipine were discontinued during last hospitalization. Type 2 diabetes mellitus. follow POCs. Does not take meds at home Insulin sliding scale only for now. Chronic bilateral foot wounds. Does not appear to be infected at this time, appears improved from previous admission Continue local Wound care as per wound care nurse recommendations xray with chronic changes, less likely source of infection ESRD. h/o non-compliance and has only been going to HD two days/week Nephrology following last hemodialysis 12/14 Chronic anemia due to chronic disease Hemoglobin at baseline epo as per stereotype finisher <JOVON Giron Last Filed: 12/28/23 18:25> Time Attestation Discharge Coordination Time (in mins): 40 <JOVON Giron Last Filed: 12/28/23 18:25> Quality: Safe Use of Opioids Does Pt have an Active Cancer Diagnosis on the Problem List?: No <JOVON Giron Last Filed: 12/28/23 18:25> Quality: Stroke Does the patient have a stroke diagnosis?: No <JOVON Giron Last Filed: 12/28/23 18:25> Physical Exam Vital Signs: Vital Signs: Last Vital Signs Temp 97.6 F 12/16/23 11:37 Pulse 86 12/16/23 11:37 Resp 19 12/16/23 11:37 BP 134/69 12/16/23 11:37 Pulse Ox 100 12/16/23 11:37 O2 Del Method Nasal Cannula 12/16/23 11:37 O2 Flow Rate 2 12/16/23 11:37 Oxygen Flow Rate 4 12/11/23 16:16 BMI result Body Mass Index 27.9 <JOVON Giron Last Filed: 12/28/23 18:25> Const: General: cooperative, no acute distress, alert and awake <JOVON Giron Last Filed: 12/28/23 18:25> Nutritional Appearance: average body habitus <JOVON Giron Last Filed: 12/28/23 18:25> Orientation/consciousness: patient oriented x3 <JOVON Giron Last Filed: 12/28/23 18:25> Eyes: Other: right eye blind <JOVON Giron Last Filed: 12/28/23 18:25> Chest: Other: PermCath left anterior chest wall clean and dry, no surrounding erythema <JOVON Giron Last Filed: 12/28/23 18:25> Resp: Effort & Inspection: normal respiratory effort, able to speak in complete sentences, no respiratory distress and no use of accessory muscles <JOVON Giron Last Filed: 12/28/23 18:25> Cardio: Rate: regular rate <JOVON Giron - Last Filed: 12/28/23 18:25> GI: Inspection: No distended <JOVON Giron - Last Filed: 12/28/23 18:25> Palpation (GI): Soft to palpation <JOVON Giron - Last Filed: 12/28/23 18:25> Skin: Other: left tma ; right plantar/lateral diabetic wound appears healed; right doral wound no open areas or drainage Left heel scab, no erythema, no warmth but some tenderness on palpation; left plantar wound no drainage, warmth, tenderness <JVOON Giron - Last Filed: 12/28/23 18:25> Neuro: General: patient oriented x3, moves all extremities and CN's II-XI intact bilaterally <JOVON Giron - Last Filed: 12/28/23 18:25> DS: Data Data Completed and Pending Completed studies during hospitalization [Text1]: Procedures Detachment at Left 2nd Toe, Complete, Open Approach (09/08/23) Detachment at Left 3rd Toe, Complete, Open Approach (09/08/23) Detachment at Left 4th Toe, Complete, Open Approach (09/08/23) Detachment at Right Foot, Partial 1st Ray, Open Approach (03/01/20) Detachment at Right Foot, Partial 2nd Ray, Open Approach (03/01/20) Detachment at Right Foot, Partial 3rd Ray, Open Approach (03/01/20) Detachment at Right Foot, Partial 4th Ray, Open Approach (03/01/20) Detachment at Right Foot, Partial 5th Ray, Open Approach (03/01/20) Drainage of Right Pleural Cavity, Percutaneous Approach (01/14/21) Excision of Left Foot Skin, External Approach (10/08/23) Excision of Left Foot Subcutaneous Tissue and Fascia, Open Approach (10/08/23) Excision of Right Foot Skin, External Approach (08/27/23) Excision of Stomach, Pylorus, Via Natural or Artificial Opening Endoscopic, Diagnostic (08/27/22) Fluoroscopy of Superior Vena Cava, Guidance (08/14/22) Insertion of Endotracheal Airway into Trachea, Via Natural or Artificial Opening (11/10/23) Insertion of Infusion Device into Right Atrium, Percutaneous Approach (08/14/22) Insertion of Infusion Device into Superior Vena Cava, Percutaneous Approach (11/10/23) Insertion of Infusion Device into Upper Vein, Percutaneous Approach (08/27/23) Insertion of Tunneled Vascular Access Device into Chest Subcutaneous Tissue and Fascia, Percutaneous Approach (11/10/23) Introduction of Vasopressor into Peripheral Vein, Percutaneous Approach (11/10/23) Isolation (11/10/23) Performance of Urinary Filtration, Intermittent, Less than 6 Hours Per Day (11/10/23) Removal of Infusion Device from Great Vessel, External Approach (01/14/21) Respiratory Ventilation, Greater than 96 Consecutive Hours (11/10/23) Transfusion of Nonautologous Red Blood Cells into Peripheral Vein, Percutaneous Approach (11/10/23) Ultrasonography of Superior Vena Cava, Guidance (11/10/23) <JOVON Giron - Last Filed: 12/28/23 18:25> Labs on day of discharge: Laboratory Results - last 24 hr 12/15/23 12/15/23 12/16/23 15:44 21:17 08:24 POC Glucose 123 H 105 86 12/16/23 11:35 POC Glucose 117 H Preliminary micro results at discharge 12/14/23 14:42 Blood Culture - Preliminary Blood - Venous No growth after 24 hours. 12/14/23 14:42 Blood Culture - Preliminary Blood - Venous No growth after 24 hours. 12/11/23 16:24 Blood Culture - Preliminary Blood - Venous No growth after 48 hours. <JOVON Giron - Last Filed: 12/28/23 18:25> Discharge Plan Discharge Anticipated Discharge Date/Time: 12/17/23 07:49 <JOVON Giron - Last Filed: 12/28/23 18:25> Patient Disposition: Home, Self-Care <JOVON Giron - Last Filed: 12/28/23 18:25> Discharge Diagnosis: Sepsis due to bacteremia Toxic metabolic encephalopathy-resolved <JOVON Giron - Last Filed: 12/28/23 18:25> Sepsis due to bacteremia Toxic metabolic encephalopathy-resolved <Tawny Taylor NP - Last Filed: 12/17/23 09:17> Referrals: Genevieve Gtz MD [Primary Care Provider] - 1 Week <JOVON Giron - Last Filed: 12/28/23 18:25> Discharge Medications: New carvedilol 12.5 mg Tablet 12.5 mg PO BID 90 Days Qty: 180 0RF Protocol: Hold for SBP/HR < HOLD for SBP < : 90 HOLD for HR < : 60 hydralazine 50 mg Tablet 50 mg PO TID 90 Days Qty: 270 0RF Protocol: Hold for SBP< HOLD for SBP < : 90 sulfamethoxazole-trimethoprim [Bactrim] 400-80 mg tablet 1 tab PO Q24H Qty: 28 0RF <JOVON Giron - Last Filed: 12/28/23 18:25> Discharge Orders: Discharge Order (Routine); Ordered 12/17/23 Ordered By: Tawny Taylor <JOVON Giron - Last Filed: 12/28/23 18:25> Diet: Advance to usual diet <JOVON Giron - Last Filed: 12/28/23 18:25> Advance to usual diet <Tawny Taylor NP - Last Filed: 12/17/23 09:17> Activity on Discharge: As tolerated <JOVON Giron - Last Filed: 12/28/23 18:25> As tolerated <Tawny Taylor NP - Last Filed: 12/17/23 09:17> Stand Alone Forms: Patient Portal Discharge page <JOVON Giron - Last Filed: 12/28/23 18:25> Print Language: Haitian <JOVON Giron - Last Filed: 12/28/23 18:25> Care Plan Goals: See below <JOVON Giron - Last Filed: 12/28/23 18:25> Health Concerns: Sepsis due to Bacteremia Uncontrolled hypertension <JOVON Giron - Last Filed: 12/28/23 18:25> Plan of Treatment: Complete 1 month of oral Bactrim for treatment of bacteremia, end date January 10. Take entire course as prescribed. On the days you have dialysis take dose of antibiotics after dialysis. Recommend CBC, BMP weekly while receiving antibiotics, discussed with nephrology can be done at dialysis center The importance of compliance with antibiotics as well as dialysis 3 times weekly was discussed in detail Continue local wound care for foot wounds as per previous discharge. Outpatient follow-up in the [facility] <JOVON Giron - Last Filed: 12/28/23 18:25> Assessment: See discharge summary <JOVON Giron - Last Filed: 12/28/23 18:25> Discharge Date/Time: 12/17/23 14:24 <JOVON Giron - Last Filed: 12/28/23 18:25>
[2023-12-16] MEDS: Sulfamethox/Trimeth 800/160 TABLET 1 TAB PO (13:44)
[2023-12-16 15:28] VITALS: BP 103/52; PULSE 83; RESP 18; TEMP 36.6; O2SAT 98
[2023-12-16 16:35] LABS: Glucose, Whole Blood 109 mg/dL (60-115)
[2023-12-16 20:00] VITALS: BP 137/60; PULSE 81; RESP 16; TEMP 36; O2SAT 100
[2023-12-16 20:43] LABS: Glucose, Whole Blood 111 mg/dL (60-115)
[2023-12-17] VITALS: BP 134/64; PULSE 84; RESP 20; TEMP 36.2; O2SAT 94
[2023-12-17] MEDS: diphenhydrAMINE HCL 50 MG/ML VIAL 12.5 MG IVPUSH ×2 (00:51→07:26)
[2023-12-17] MEDS: oxyCODONE HCl Immed Release 5 MG TABLET 10 MG PO ×2 (00:52→07:26)
[2023-12-17] MEDS: ondansetron HCL 4 MG/2 ML VIAL IVPUSH ×2 (00:54→07:26)
[2023-12-17 07:26] LABS: Glucose, Whole Blood 84 mg/dL (60-115)
[2023-12-17 08:00] VITALS: BP 124/58; PULSE 80; RESP 18; TEMP 37.1; O2SAT 100
[2023-12-17] MEDS: hydrALAZINE HCl 50 MG TABLET PO (08:31)
[2023-12-17] MEDS: carvediloL 12.5 MG TABLET PO (08:31)
[2023-12-17] MEDS: 0.9 % Sodium Chloride Flush 3 ML SYRINGE IVFLUSH (08:34)
--- NOTE | 2023-12-17 09:25 | MHC.CM.PN ---
Per DIRT BIKE MECHANIC/Tawny, Patient is medically cleared for dc to home today, self care. CM met with Patient at bedside to address IMM; this was done verbally, r/t Patient's inability to see.Per Patient, her Sister/HCP/Mary will transport to home today around 1:30 PM. RT has arranged for home O2. HD should resume as before.
[2023-12-17 11:29] LABS: Glucose, Whole Blood 74 mg/dL (60-115)
== END 2023-12-17 14:24 | disposition home or self-care (01) | DRG 871 ==
LOC: HO.ED 18:48 → HO.EDOVER 20:22 → HO.IMC 12-12 19:49
PROVIDERS: Physician Assistant Medical; Admitting Provider Internal Medicine; Emergency Provider Emergency Medicine; PCP Student in an Organized Health Care Education/Training Program; Visit Provider Nurse Practitioner Acute Care
DX: A41.9 Sepsis, unspecified organism (principal); G92.8 Other toxic encephalopathy; N18.6 End stage renal disease; I13.2 Hypertensive heart and chronic kidney disease with heart failure and with stage 5 chronic kidney disease, or end stage renal disease; I50.22 Chronic systolic (congestive) heart failure; L97.429 Non-pressure chronic ulcer of left heel and midfoot with unspecified severity; E11.319 Type 2 diabetes mellitus with unspecified diabetic retinopathy without macular edema; E11.42 Type 2 diabetes mellitus with diabetic polyneuropathy; E11.51 Type 2 diabetes mellitus with diabetic peripheral angiopathy without gangrene; E11.621 Type 2 diabetes mellitus with foot ulcer; E11.649 Type 2 diabetes mellitus with hypoglycemia without coma; R62.50 Unspecified lack of expected normal physiological development in childhood; E11.22 Type 2 diabetes mellitus with diabetic chronic kidney disease; I50.812 Chronic right heart failure; D63.1 Anemia in chronic kidney disease; Z99.2 Dependence on renal dialysis; Z91.158 Patient's noncompliance with renal dialysis for other reason; Z20.822 Contact with and (suspected) exposure to COVID-19; Z79.899 Other long term (current) drug therapy
CPT/HCPCS: 0241U; 36415; 71045; 73630; 80048; 80053; 80076; 82947; 83605; 83690; 83735; 83880; 84484; 84702; 85025; 87040; 87077; 87205; 90999; 93005; 99285; J0131; J0696; J0885; J1171; J1200; J1920; J2185; J2405; J2470

== ENCOUNTER → 2023-12-11 16:10 | Outpatient (BNV) | payer OTHER, SELFPAY | PROVIDERS: Admitting Provider Internal Medicine; Emergency Provider Emergency Medicine; PCP Student in an Organized Health Care Education/Training Program; Visit Provider Internal Medicine | DX: R00.0 Tachycardia, unspecified (principal) | CPT/HCPCS: 93010 ==

== ENCOUNTER → 2023-12-11 20:12 | Outpatient (BNV) | payer OTHER, SELFPAY | PROVIDERS: Admitting Provider Internal Medicine; Emergency Provider Emergency Medicine; Visit Provider Internal Medicine | DX: A41.52 Sepsis due to Pseudomonas (principal) | CPT/HCPCS: 99223; 99232; 99239 ==

== ENCOUNTER 2023-12-20 17:46 | Emergency (ER) | payer OTHER, SELFPAY ==
[2023-12-20 17:54] VITALS: BP 101/69; BP 119/74; PULSE 92; PULSE 95; RESP 16; TEMP 37.1; O2SAT 100; O2SAT 99; BMI 25.9
[2023-12-20 19:16] LABS: Basophils Percent Auto 0.5 % (0-2); Eosinophils Absolute Auto 0.1 X10*3/uL (0.0-0.4); Eosinophils Percent Auto 2.8 % (0-4); Hematocrit 31.1 % (37.0-47.0); Hemoglobin 10.2 g/dl (12.0-16.0); Imm Gran Abs Auto 0.02 X10*3/uL (0.00-0.03); Imm Gran Pct Auto 0.5 % (0.0-0.4); Lymphocytes Absolute Auto 0.6 X10*3/uL (1.2-4.9); Lymphocytes Percent Auto 14.3 % (20-40); MANUAL DIFF FLAG SCAN; Mean Corpuscular HGB Conc 32.8 g/dl (31.0-35.0); Mean Corpuscular Hemoglobin 30.5 pg (27.0-33.0); Mean Corpuscular Volume 93.1 fL (80.0-98.0); Monocytes Absolute Auto 0.9 X10*3/uL (0.1-1.2); Monocytes Percent Auto 23.6 % (2-11); Neutrophils Absolute Auto 2.3 x10*3/uL (2.0-8.3); Neutrophils Percent Auto 58.3 % (45-73); Platelet Count 182 X10*3/uL (160-400); Red Blood Count 3.34 X10*6/uL (4.20-5.50); Red Cell Distribution Width 18.9 % (11.0-16.0); SCAN SMEAR FLAG 1
[2023-12-20 19:33] LABS: Alanine Aminotransferase 14 U/L (0-31); Albumin Level 3.7 g/dL (3.5-5.0); Alkaline Phosphatase 169 U/L (39-117); Anion Gap 14 (12-20); Aspartate Amino Transferase 35 U/L (5-31); Bilirubin Total 1.2 mg/dL (0.0-1.0); Blood Urea Nitrogen 13 mg/dL (9-16); Calcium 9.6 mg/dL (8.4-10.2); Carbon Dioxide 36 mmol/L (22-29); Chloride 92 mmol/L (96-108); Creatinine Clr Calc Pharmacy 21.9; Estimated Glomerular Filt Rate 14; Glucose Random 200 mg/dL (60-115); Lipase 28 U/L (8-78); Magnesium 2.2 mg/dL (1.6-2.6); Potassium 3.3 mmol/L (3.3-5.1); Sodium 139 mmol/L (135-145); Total Protein 7.6 g/dL (6.5-8.0)
[2023-12-20 19:36] LABS: SLIDE REVIEW VERIFIED
[2023-12-20 19:42] LABS: Ethanol < 10 mg/dL; HCG Quantitative < 2 mIU/mL
[2023-12-20 19:53] LABS: Influenza A PCR NEGATIVE (Negative); Influenza B PCR NEGATIVE (Negative); Resp Syncy Virus RNA Qual PCR NEGATIVE (Negative); SARS COV2 PCR INHOUSE NEGATIVE (Negative)
--- NOTE | 2023-12-20 20:48 | ED_ITS ---
HPI - Weakness General Chief complaint: Weakness Stated complaint: weakness, near syncope, has infected foot wound Time Seen by Provider: 12/20/23 17:57 Source: patient Limitations: no limitations History of Present Illness ED Provider: Indu Moe PA-C HPI Narrative: 33-year-old female with a history of end-stage renal disease on dialysis Sunday/ but refuses to go on Saturdays, numerous hospital admissions secondary to nonadherence with her hemodialysis,?diabetes, diabetic retinopathy with associated blindness, peripheral vascular disease now status post bilateral trans metatarsal amputation, poorly controlled hypertension secondary to nonadherence with her medications, chronic respiratory failure on supplemental oxygen at home, heart failure with reduced ejection fraction, substance abuse, mood disorder, chronic pain , presents with generalized weakness. Patient states she had dialysis today, then felt weak. She states she was initially nauseous, she is no longer. History limited as patient not wanting to engage in conversation so as to obtain detailed history. Related Data Previous Rx's ?Medication ?Instructions ?Recorded carvedilol 12.5 mg tablet 12.5 mg PO BID 90 days #180 tabs 12/16/23 hydralazine 50 mg tablet 50 mg PO TID 90 days #270 tabs 12/16/23 sulfamethoxazole 400 1 tab PO Q24H #28 tabs 12/16/23 mg-trimethoprim 80 mg tablet (Bactrim) Allergies Allergy/AdvReac Type Severity Reaction Status Date / Time morphine [MORPHINE] Allergy Intermediate Itching Verified 12/20/23 18:02 azithromycin [From Zithromax] Allergy Hives Verified 12/20/23 18:02 gabapentin Allergy Facial Verified 12/20/23 18:02 Swelling tramadol Allergy Facial Verified 12/20/23 18:02 Swelling vancomycin Allergy Anaphylaxis Verified 12/20/23 18:02 Review of Systems 2 Review of Systems: Limited as patient not wanting to engage in conversation Yes all other systems are reviewed and are negative PMFSH Past Medical History Attestation statement: The following information was validated with the patient. Medical History End stage chronic kidney disease Chronic kidney disease Anemia Chronic foot ulcer Plantar ulcer of left foot Major depressive disorder, single episode, severe ESRD (end stage renal disease) Non-compliance with renal dialysis Hypertensive urgency MDD (major depressive disorder), recurrent episode MDD (major depressive disorder) Renal failure Foot ulcer CKD (chronic kidney disease) Hypertension Diabetic foot Hyperkalemia Vomiting Renal failure Hypertension Migraine Chronic pain ESRD on dialysis Non-compliance with renal dialysis Hypertension End-stage renal disease (ESRD) Gastroparesis Diabetic foot ulcer associated with type 2 diabetes mellitus Hypertensive emergency Diabetes ESRD needing dialysis Cardiomyopathy HFrEF (heart failure with reduced ejection fraction) Metabolic acidosis delivery delivered Anemia in chronic kidney disease (CKD) CKD (chronic kidney disease) Headache, migraine Abnormal finding on echocardiogram Elevated troponin Chest pain Acute worsening of stage 3 chronic kidney disease Generalized edema Sepsis Cellulitis Pleural effusion CHF (congestive heart failure) (~06/07/22) Tachycardia Atypical chest pain Bone infection PAD (peripheral artery disease) Severe anemia Cellulitis and abscess of foot DM foot ulcer Osteomyelitis Asthma Depression with anxiety Diabetic retinopathy Type 2 diabetes mellitus with hyperglycemia, with long-term current use of insulin Blind right eye Diabetes Back pain Surgical History Tubal ligation status Previous section Hx laparoscopic cholecystectomy Hx of surgical procedure (~09/11/23) 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 Family History Family History Mother Coronary artery disease Myocardial infarction Stroke Diabetes mellitus Father Myocardial infarction Social History Social History Household Members: Unknown / Unable to assess 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 Housing: Apartment Do you presently have visiting nurse or other home services: No Unable to assess alcohol history related to: Unknown Alcohol intake: never Comment: restraints Patient Tobacco Use Status: Never used Tobacco e-Cigarette/Vaping Use: Never Used Advance Directives: Yes Advance Directives on File: Yes Advance Directives Date on File: 09/04/23 service: No Current occupational status: unemployed and disabled Gender identity: Female Physical Exam 2 Vital Signs: Vital Signs: Last Vital Signs Temp 98.8 F 12/20/23 17:54 Pulse 95 12/20/23 17:54 Resp 16 12/20/23 17:54 BP 119/74 12/20/23 17:54 Pulse Ox 99 12/20/23 17:54 O2 Del Method Room Air 12/20/23 17:54 BMI result Body Mass Index 25.9 Const: Other: Awake, appears older than stated age Orientation/consciousness: patient oriented x3 Resp: Other: Nonlabored respirations Cardio: Other: Normal peripheral perfusion Skin: Other: Warm dry no rash Neuro: General: patient oriented x3 and no focal motor deficits Psych: Other: Somewhat uncooperative at times Medical Decision Making Medical Decision Making MDM Narrative: 33-year-old female with a history of end-stage renal disease on dialysis Sunday/ but refuses to go on Saturdays, numerous hospital admissions secondary to nonadherence with her hemodialysis,?diabetes, diabetic retinopathy with associated blindness, peripheral vascular disease now status post bilateral trans metatarsal amputation, poorly controlled hypertension secondary to nonadherence with her medications, chronic respiratory failure on supplemental oxygen at home, heart failure with reduced ejection fraction, substance abuse, mood disorder, chronic pain , presents with generalized weakness. Patient states she had dialysis today, then felt weak. She states she was initially nauseous, she is no longer. History limited as patient not wanting to engage in conversation so as to obtain detailed history. Problem: Extensive medical history and psychiatric history History: Per patient I have considered the following differential diagnoses: Malingering, secondary gain, anemia, electrolyte abnormality, infection, viral syndrome Plan: Patient is sadly well known to the emergency department, she is here with generalized weakness, without any specific complaint. We will screen labs, a urine if she can provide it, she states she still does make urine at times , and a viral panel. I have independently reviewed the following tests: Labs: No leukocytosis, not anemic, no electrolyte abnormality, creatinine at baseline having had dialysis, viral panel negative Lab Data 12/20/23 19:10 12/20/23 19:10 Labs: Lab Results 12/20/23 Range/Units 19:10 WBC 4.0 L (4.8-10.8) X10*3/uL RBC 3.34 L D (4.20-5.50) X10*6/uL Hgb 10.2 L D (12.0-16.0) g/dl Hct 31.1 L D (37.0-47.0) % MCV 93.1 (80.0-98.0) fL MCH 30.5 (27.0-33.0) pg MCHC 32.8 (31.0-35.0) g/dl RDW 18.9 H (11.0-16.0) % Plt Count 182 D (160-400) X10*3/uL MPV 10.0 (9.4-12.3) fL Immature Gran % (Auto) 0.5 H (0.0-0.4) % Neut % (Auto) 58.3 (45-73) % Lymph % (Auto) 14.3 L (20-40) % [place] % (Auto) 23.6 H (2-11) % Eos % (Auto) 2.8 (0-4) % Baso % (Auto) 0.5 (0-2) % Lymph # (Auto) 0.6 L (1.2-4.9) X10*3/uL [place] # (Auto) 0.9 (0.1-1.2) X10*3/uL Eos # (Auto) 0.1 (0.0-0.4) X10*3/uL Baso # (Auto) 0.0 (0.0-0.2) X10*3/uL Abs Immat Gran (auto) 0.02 (0.00-0.03) X10*3/uL Absolute Neuts (auto) 2.3 (2.0-8.3) x10*3/uL Absolute Nucleated RBC 0.000 (0.0-0.012) X10*3/uL Nucleated RBC % (auto) 0.0 (0.0-0.2) /100WBC Smear Tech's Comments VERIFIED Sodium 139 (135-145) mmol/L Potassium 3.3 (3.3-5.1) mmol/L Chloride 92 L (96-108) mmol/L Carbon Dioxide 36 H (22-29) mmol/L Anion Gap 14 (12-20) BUN 13 (9-16) mg/dL Creatinine 3.65 H (0.5-1.4) mg/dL Estim Creat Clear Calc 21.9 Estimated GFR 14 Random Glucose 200 H (60-115) mg/dL Calcium 9.6 D (8.4-10.2) mg/dL Magnesium 2.2 (1.6-2.6) mg/dL Total Bilirubin 1.2 H (0.0-1.0) mg/dL AST 35 H (5-31) U/L ALT 14 (0-31) U/L Alkaline Phosphatase 169 H (39-117) U/L Total Protein 7.6 (6.5-8.0) g/dL Albumin 3.7 (3.5-5.0) g/dL Lipase 28 (8-78) U/L Beta HCG, Quant < 2 mIU/mL Ethyl Alcohol < 10 mg/dL Influenza Type A (PCR) NEGATIVE (Negative) Influenza Type B (PCR) NEGATIVE (Negative) RSV RNA Qual (PCR) NEGATIVE (Negative) SARS-CoV-2 RNA (RT-PCR) NEGATIVE (Negative) Discharge Plan Discharge Clinical Impression: Weakness Patient Disposition: Home, Self-Care Instructions: Weakness (ED) Additional Instructions: All of your labs were normal, we obtained a viral swab, you were screened for RSV, influenza and COVID, it was negative as well. Follow up with your primary care provider as needed Prescriptions: No Action carvedilol 12.5 mg Tablet 12.5 mg PO BID 90 Days Qty: 180 0RF Protocol: Hold for SBP/HR < HOLD for SBP < : 90 HOLD for HR < : 60 hydralazine 50 mg Tablet 50 mg PO TID 90 Days Qty: 270 0RF Protocol: Hold for SBP< HOLD for SBP < : 90 sulfamethoxazole-trimethoprim [Bactrim] 400-80 mg tablet 1 tab PO Q24H Qty: 28 0RF Print Language: Setswana
--- NOTE | 2023-12-20 22:32 | PC.NURSE ---
pt 1 assist onto commode, on EMS arrival pt started yelling out crying reporting pain from chronic constipation, provider at bedside. pt advised to used OTC stool softeners on discharge.
[2023-12-20 22:37] VITALS: BP 119/74; PULSE 95; RESP 16; TEMP 37.1; O2SAT 99
== END 2023-12-20 22:37 | disposition home or self-care (01) ==
PROVIDERS: Physician Assistant Medical; Emergency Provider Emergency Medicine
DX: R53.1 Weakness (principal); I95.1 Orthostatic hypotension; I73.9 Peripheral vascular disease, unspecified; R11.0 Nausea; R10.2 Pelvic and perineal pain; Z51.81 Encounter for therapeutic drug level monitoring; Z79.899 Other long term (current) drug therapy; Z03.818 Encounter for observation for suspected exposure to other biological agents ruled out
CPT/HCPCS: 0241U; 36415; 80053; 80307; 83690; 83735; 84702; 85025; 99283; 99284

== ENCOUNTER 2024-01-14 18:26 | Inpatient (IN) | payer OTHER, SELFPAY ==
[2024-01-14] VITALS (9 sets, daily range): BP systolic 178–214; BP diastolic 100–147; PULSE 83–102; RESP 13–20; TEMP 36.4–37.2; O2SAT 93–98; BMI 26.6
--- NOTE | 2024-01-14 | ECG_ITS ---
Test Reason : DYSPNEA Blood Pressure : / mmHG Vent. Rate : 098 BPM Atrial Rate : 098 BPM P-R Int : 164 ms QRS Dur : 142 ms QT Int : 440 ms P-R-T Axes : 042 -14 027 degrees QTc Int : 561 ms Normal sinus rhythm Possible Left atrial enlargement Right bundle branch block Abnormal ECG When compared with ECG of 11-DEC-2023 16:28, T wave inversion less evident in Anterior leads Referred By: Generic ED Physician Electronically Signed By:HATTIE BAÑUELOS MD
--- NOTE | ~2024-01-14 | IR_ITS ---
CLINICAL HISTORY: Positive catheter cultures. Blood cultures negative x 48 hours. The patient presents to interventional radiology for replacement of a tunneled central venous catheter for hemodialysis. PROCEDURES: 1. Replacement of a 14.5 fr 27 cm tunneled, dual-lumen hemodialysis catheter. Clinician: Michele Garcia PA-C MEDICATIONS: -Fentanyl 50 mcg, Lidocaine 1% 10 mL SQ. -Antibiotics: None -For additional details, please see nursing flowsheet. COMPLICATIONS: None. ESTIMATED BLOOD LOSS: <5 ml SPECIMENS: None FLUOROSCOPY TIME: 0.9 min PROCEDURE NOTE: The procedure, risks, benefits, and alternatives were carefully explained to patient, and written informed consent was obtained. The patient was placed supine on the fluoroscopy table. A timeout was performed. The left neck and chest was prepped and draped in usual sterile fashion. Local anesthesia was administered to the left chest wall at the catheter site with lidocaine. The fibrin cuff was dislodged from the chest wall with blunt dissection. A 0.035 in wire was advanced through the arterial limb of the catheter and into the IVC. The catheter was then removed over the wire. A new 27 cm permacath was advanced over the wire and positioned with the tip in the right atrium. The wire was then removed. The catheter was tested, flushed, and sutured to the skin. A permanent fluoroscopic image of the chest was saved to PACS. The catheter ports were packed with heparin per routine protocol. The patient was stable after the procedure and was transferred back to the medical floor. FINDINGS: 1. Replacement of a tunneled, dual-lumen hemodialysis catheter as above. 2. Catheter flushes and aspirates very well with a 10 mL syringe. No pneumothorax. IR/IR cvc insert central tunnel IMPRESSION: Replacement of a tunneled hemodialysis catheter in the left internal jugular vein. PLAN: -The catheter may be used immediately. This procedure was performed by Michele Garcia PA-C, and directly supervised by Dr. Liriano. Electronically signed by: Duncan Shepherd MD 01/28/2024 04:21 PM [facility]
--- NOTE | ~2024-01-14 | XR_ITS ---
EXAMINATION: XR CHEST CLINICAL INFORMATION: sob COMPARISON: Chest radiograph 12/11/2023 TECHNIQUE: Frontal view of the chest was obtained. FINDINGS: The left internal jugular dual lumen catheter terminates in projection with the right atrium. Cardiac silhouette is within normal limits of size. No effusions or pneumothoraces. Grossly normal pattern of pulmonary vasculature. No focal pulmonary consolidation. Minimal right base airspace opacities. XR/XR chest 1V IMPRESSION: *Minimal right lower lobe atelectasis and/or consolidation. *Right internal jugular dual lumen catheter terminating within the right atrium. Electronically signed by: Raman Al MD 01/14/2024 11:58 PM [facility]
--- NOTE | ~2024-01-14 | CT_ITS ---
EXAMINATION: CT CHEST, ABDOMEN AND PELVIS WITH CONTRAST CLINICAL INFORMATION: Sepsis COMPARISON: Chest radiograph 01/14/2024. CT abdomen and pelvis and chest dated 11/14/2023. TECHNIQUE: Multidetector volumetric CT imaging of the chest, abdomen, and pelvis was performed after the administration of 85 mL of Omnipaque 300 intravenous contrast without immediate adverse reactions. DOSE LOWERING TECHNIQUES: This CT examination was performed using dose optimization techniques as appropriate, variously including the following: - Automated exposure control - Adjustment of mA and/or kV according to patient size (this includes techniques or standardized protocols for targeted exams where dose is matched to indication/reason for exam; i.e. extremities or head) - Use of iterative reconstruction technique DLP: 1246 mGy-cm. FINDINGS: CHEST: LUNGS: There is minor atelectasis at the lung bases but no suspicious nodules or masses or consolidations. MEDIASTINUM: There is normal contrast enhancement in the great vessels of the mediastinum. No evidence for aortic aneurysm. No significant adenopathy. There is a small to moderate pericardial effusion observed. PLEURA: There is a small right pleural effusion. AXILLA: No lymphadenopathy. ABDOMEN AND PELVIS: LIVER, GALLBLADDER, AND BILIARY TREE: The liver is enlarged, diffusely heterogeneous. The left lobe liver is transverse and extends far into the left upper quadrant. No focal mass or intrahepatic biliary dilatation although a diffuse infectious or inflammatory process involving the liver may be present. The gallbladder is surgically absent. PANCREAS: Unremarkable. SPLEEN: Unremarkable. ADRENAL GLANDS: Unremarkable. KIDNEYS AND URETERS: Vascular calcifications are observed in the kidneys but no hydronephrosis, mass or perinephric collection. BLADDER: The bladder is quite distended but focal masses or calcifications are not seen. There are small bowel loops that are seen anterior to the bladder extending to the rectus musculature. There is overlying soft tissue induration in the subcutaneous fat. A cellulitis or abscess involving the bowel loops without fistula formation to the bladder is all possible. GASTROINTESTINAL TRACT: No bowel obstruction or right or left lower quadrant inflammatory change. Some fluid is seen in the right paracolic gutter but I do not see an inflamed appendix. There is a small amount of ascites deep in the pelvis surrounding the uterus and adnexal regions extending up into the left paracolic gutter. ABDOMINAL WALL: See above. There is induration within the anterior abdominal wall subcutaneous fat extending to the inferior is inferior rectus, with bowel loops appear tacked to the rectus. Note is made of induration in the gluteal fat at the level of the sacrum and right and left ovaries nidhi musculature. No evidence for abscess collection although cellulitis could have such an appearance. LYMPH NODES: There are multiple abdominal and retroperitoneal nodes present, intra-aortocaval measuring up to 8 mm, and left para-aortic measuring up to 12 mm. More prominent nodes seen adjacent to the left renal vein are observed measuring up to 17 mm. VASCULAR: Extensive vascular calcifications are present, somewhat unusual for patient of this age, with calcification seen in the splenic artery, SMA, aorta, and multiple mesenteric small vessels including the iliacs. This is compatible with the patient's history of end-stage renal disease. PELVIC VISCERA: Calcifications are seen within the uterus and adnexal regions. OSSEOUS STRUCTURES: Degenerative change L4-5. CT/CT abdomen pelvis w IV con IMPRESSION: The amount of ascites has decreased, from 11/14/2023. Findings related to the anterior abdominal wall, appears slightly more apparent. Cellulitis related to anterior abdominal wall or rectus musculature and perigluteal fat is also possible. In addition, an infiltrative process in the liver may well be present, unchanged however from 11/09/2023. The liver remains diffusely enlarged and heterogeneous. The right effusion is stable and there has been improvement in the left lung since the prior study with resolution of the left basilar consolidation and pleural effusion. Electronically signed by: Bg Marino MD 01/15/2024 05:53 PM [facility] [place]
--- NOTE | 2024-01-14 19:40 | ED_ITS ---
HPI - SOB/Dyspnea General Chief Complaint: Dyspnea Stated Complaint: HIGH BLOOD PRESSURE Time Seen by Provider: 01/14/24 18:34 History of Present Illness HPI Narrative: Patient is a 33-year-old female with a history of end-stage renal disease history of diabetes. Patient went on vacation to [place] did not get dialysis for 1 week. The last dialysis was on Sunday last week. Patient presented with having increasing shortness of breath weakness. Came in for further evaluation. Related Data Previous Rx's ?Medication ?Instructions ?Recorded carvedilol 12.5 mg tablet 12.5 mg PO BID 90 days #180 tabs 12/16/23 hydralazine 50 mg tablet 50 mg PO TID 90 days #270 tabs 12/16/23 sulfamethoxazole 400 1 tab PO Q24H #28 tabs 12/16/23 mg-trimethoprim 80 mg tablet (Bactrim) Allergies Allergy/AdvReac Type Severity Reaction Status Date / Time morphine [MORPHINE] Allergy Intermediate Itching Verified 01/14/24 18:40 azithromycin [From Zithromax] Allergy Hives Verified 01/14/24 18:40 gabapentin Allergy Facial Verified 01/14/24 18:40 Swelling tramadol Allergy Facial Verified 01/14/24 18:40 Swelling vancomycin Allergy Anaphylaxis Verified 01/14/24 18:40 Review of Systems 2 Review of Systems: Positive shortness breath jaw positive generalized malaise positive diffuse body ache PMFSH Past Medical History Attestation statement: The following information was validated with the patient. Medical History End stage chronic kidney disease Chronic kidney disease Anemia Chronic foot ulcer Plantar ulcer of left foot Major depressive disorder, single episode, severe ESRD (end stage renal disease) Non-compliance with renal dialysis Hypertensive urgency MDD (major depressive disorder), recurrent episode MDD (major depressive disorder) Renal failure Foot ulcer CKD (chronic kidney disease) Hypertension Diabetic foot Hyperkalemia Vomiting Renal failure Hypertension Migraine Chronic pain ESRD on dialysis Non-compliance with renal dialysis Hypertension End-stage renal disease (ESRD) Gastroparesis Diabetic foot ulcer associated with type 2 diabetes mellitus Hypertensive emergency Diabetes ESRD needing dialysis Cardiomyopathy HFrEF (heart failure with reduced ejection fraction) Metabolic acidosis delivery delivered Anemia in chronic kidney disease (CKD) CKD (chronic kidney disease) Headache, migraine Abnormal finding on echocardiogram Elevated troponin Chest pain Acute worsening of stage 3 chronic kidney disease Generalized edema Sepsis Cellulitis Pleural effusion CHF (congestive heart failure) (~06/07/22) Tachycardia Atypical chest pain Bone infection PAD (peripheral artery disease) Severe anemia Cellulitis and abscess of foot DM foot ulcer Osteomyelitis Asthma Depression with anxiety Diabetic retinopathy Type 2 diabetes mellitus with hyperglycemia, with long-term current use of insulin Blind right eye Diabetes Back pain Surgical History Tubal ligation status Previous section Hx laparoscopic cholecystectomy Hx of surgical procedure (~09/11/23) 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 Family History Family History Mother Coronary artery disease Myocardial infarction Stroke Diabetes mellitus Father Myocardial infarction Social History Social History Household Members: Unknown / Unable to assess 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 Housing: Apartment Do you presently have visiting nurse or other home services: No Unable to assess alcohol history related to: Unknown Alcohol intake: never Comment: restraints Patient Tobacco Use Status: Never used Tobacco Smoked in Last 30 Days: No e-Cigarette/Vaping Use: Never Used Use of substances other than those prescribed or required for medical reasons: No Advance Directives: Yes Advance Directives on File: Yes Advance Directives Date on File: 09/04/23 Do you have a plan to hurt others: No Plan service: No Current occupational status: unemployed and disabled Gender identity: Female Physical Exam 2 Vital Signs: Vital Signs: Last Vital Signs Temp 97.5 F 01/14/24 19:11 Pulse 99 01/14/24 21:03 Resp 17 01/14/24 21:03 BP 207/115 H 01/14/24 21:09 Pulse Ox 93 01/14/24 21:03 O2 Del Method Nasal Cannula 01/14/24 21:03 O2 Flow Rate 2 01/14/24 21:03 Oxygen Flow Rate 2 01/14/24 18:38 BMI result Body Mass Index 26.6 Appearance: Alert. Oriented X3. No acute distress. Eyes: Pupils equal, round and reactive to light. ENT: Pharynx normal. Neck: Normal inspection. Neck supple. No lymph nodes noted. No crepitus CVS: Normal heart rate and rhythm. Pulses normal. Normal S1 and S2 Respiratory: No respiratory distress. Breath sounds normal. No Wheezing. No rales Abdomen: Soft and nontender. No rigidity. No distention. good BS x4 Skin: Skin warm and dry. Normal skin color. Normal skin turgor. Extremities: No lower extremity edema. Neurovascular intact to all extremities. Status post toe amputation bilaterally Neuro: Oriented X 3. No motor deficit. No sensory deficit. Moving all extermities. No slurred speech Medications Administered Discontinued Medications Generic Name Dose Route Start Last Admin Trade Name Momoq PRN Reason Stop Dose Admin Furosemide 100 mg 01/14/24 20:25 01/14/24 21:09 Furosemide 100 Mg/10 Ml Vial IVPUSH 01/14/24 20:26 100 mg ONCE ONE Administration Protocol Hydromorphone HCl 0.5 mg 01/14/24 19:40 01/14/24 19:49 Hydromorphone Hcl 0.5 Mg/0.5 Ml Syringe IVPUSH 01/14/24 19:41 0.5 mg ONCE ONE Administration Protocol Nitroglycerin 1 inch 01/14/24 20:25 01/14/24 21:05 Nitroglycerin 2 % Oint 1 Gm Packet TRANSDERMA 01/14/24 20:26 1 inch ONCE ONE Administration Medical Decision Making Medical Decision Making [facility] Narrative: Patient missed dialysis for 1 week. Had extreme blood pressure of 220/110. Patient's labs are drawn x-rays were done. My interpretation of patient's chest x-ray showed no focal infiltrate there is mild fluid bilaterally. Patient's electrolytes showed a low bicarb. Had a potassium of 4.6. Creatinine consistent with end-stage renal disease at 11. test was negative no related issue. My interpretation of patient's EKG showed a heart rate of 100 positive white bundle branch block pattern. No acute changes when compared to previous. Patient given Lasix, nitro. To be admitted. Differential Diagnosis Differential Diagnoses: The differential diagnosis associated with the presentation includes Hyperkalemia, fluid overload, uremic, hypertension Admission/Observation Consideration of admission/observation: Escalation of care including admission/observation considered Consult Healthcare Provider Management of the patient was discussed with: Hospitalist (Case discussed with hospitalist) and Field Hauler (Discussed with outdoor power equipment mechanic will do dialysis tomorrow) Lab Data [facility] Lab Attestation statement: I reviewed the patient's lab results. 01/14/24 19:44 01/14/24 19:44 Labs: Lab Results 01/14/24 01/14/24 01/14/24 Range/Units 19:39 19:44 19:44 WBC 7.2 (4.8-10.8) X10*3/uL RBC 2.77 L (4.20-5.50) X10*6/uL Hgb 8.5 L (12.0-16.0) g/dl Hct 25.8 L (37.0-47.0) % MCV 93.1 (80.0-98.0) fL MCH 30.7 (27.0-33.0) pg MCHC 32.9 (31.0-35.0) g/dl RDW 17.4 H (11.0-16.0) % Plt Count 150 L (160-400) X10*3/uL MPV 10.9 (9.4-12.3) fL Immature Gran % (Auto) 0.4 (0.0-0.4) % Neut % (Auto) 84.6 H (45-73) % Lymph % (Auto) 6.1 L (20-40) % [place] % (Auto) 6.3 (2-11) % Eos % (Auto) 2.2 (0-4) % Baso % (Auto) 0.4 (0-2) % Lymph # (Auto) 0.4 L (1.2-4.9) X10*3/uL [place] # (Auto) 0.5 (0.1-1.2) X10*3/uL Eos # (Auto) 0.2 (0.0-0.4) X10*3/uL Baso # (Auto) 0.0 (0.0-0.2) X10*3/uL Abs Immat Gran (auto) 0.03 (0.00-0.03) X10*3/uL Absolute Neuts (auto) 6.1 (2.0-8.3) x10*3/uL Absolute Nucleated RBC 0.000 (0.0-0.012) X10*3/uL Nucleated RBC % (auto) 0.0 (0.0-0.2) /100WBC VBG pH (7.32-7.43) VBG pCO2 mmHg VBG pO2 mmHg VBG HCO3 (22-26) mmol/L VBG O2 Saturation % VBG Base Excess mmol/L Sodium 137 (135-145) mmol/L Potassium 4.6 D (3.3-5.1) mmol/L Chloride 107 (96-108) mmol/L Carbon Dioxide 12 L (22-29) mmol/L Anion Gap 23 H (12-20) BUN 112 H (9-16) mg/dL Creatinine 10.98 H* (0.5-1.4) mg/dL Estim Creat Clear Calc 7.4 Estimated GFR 4 POC Glucose 132 H (60-115) mg/dL Random Glucose 150 H (60-115) mg/dL Calcium 6.7 L D 7.1 L (8.4-10.2) mg/dL Phosphorus 11.6 H (2.7-4.5) mg/dL Magnesium 3.0 H (1.6-2.6) mg/dL Total Bilirubin (0.0-1.0) mg/dL AST (5-31) U/L ALT (0-31) U/L Alkaline Phosphatase (39-117) U/L Troponin I High Sens (<3.5-17.0) ng/L Total Protein (6.5-8.0) g/dL Albumin (3.5-5.0) g/dL Beta HCG, Quant mIU/mL 01/14/24 01/14/24 Range/Units 19:44 19:48 WBC (4.8-10.8) X10*3/uL RBC (4.20-5.50) X10*6/uL Hgb (12.0-16.0) g/dl Hct (37.0-47.0) % MCV (80.0-98.0) fL MCH (27.0-33.0) pg MCHC (31.0-35.0) g/dl RDW (11.0-16.0) % Plt Count (160-400) X10*3/uL MPV (9.4-12.3) fL Immature Gran % (Auto) (0.0-0.4) % Neut % (Auto) (45-73) % Lymph % (Auto) (20-40) % [place] % (Auto) (2-11) % Eos % (Auto) (0-4) % Baso % (Auto) (0-2) % Lymph # (Auto) (1.2-4.9) X10*3/uL [place] # (Auto) (0.1-1.2) X10*3/uL Eos # (Auto) (0.0-0.4) X10*3/uL Baso # (Auto) (0.0-0.2) X10*3/uL Abs Immat Gran (auto) (0.00-0.03) X10*3/uL Absolute Neuts (auto) (2.0-8.3) x10*3/uL Absolute Nucleated RBC (0.0-0.012) X10*3/uL Nucleated RBC % (auto) (0.0-0.2) /100WBC VBG pH 7.22 L (7.32-7.43) VBG pCO2 28 mmHg VBG pO2 53 mmHg VBG HCO3 11 L (22-26) mmol/L VBG O2 Saturation 74.0 % VBG Base Excess -14.4 mmol/L Sodium (135-145) mmol/L Potassium (3.3-5.1) mmol/L Chloride (96-108) mmol/L Carbon Dioxide (22-29) mmol/L Anion Gap (12-20) BUN (9-16) mg/dL Creatinine (0.5-1.4) mg/dL Estim Creat Clear Calc Estimated GFR POC Glucose (60-115) mg/dL Random Glucose (60-115) mg/dL Calcium (8.4-10.2) mg/dL Phosphorus (2.7-4.5) mg/dL Magnesium 3.0 H (1.6-2.6) mg/dL Total Bilirubin 1.1 H (0.0-1.0) mg/dL AST 22 (5-31) U/L ALT 18 (0-31) U/L Alkaline Phosphatase 180 H (39-117) U/L Troponin I High Sens 25.6 H (<3.5-17.0) ng/L Total Protein 7.1 (6.5-8.0) g/dL Albumin 3.5 (3.5-5.0) g/dL Beta HCG, Quant < 2 mIU/mL ABG Data ABG Results: Patient is pH is 7.22 pCO2 is 28 PaO2 is 53 on a venous blood gas. Significant acidosis likely related to no dialysis for 1 week. Independent Interpretation I performed an independent interpretation of an: EKG (EKG showed a heart rate of 100 positive right bundle-branch block) and Plain X-Ray (That is x-ray showed mild congestive heart failure) Procedures EJ/Peripheral Line Arm R: Time Out Performed: Yes Skin Cleansed in Sterile Fashion: Yes Size (gauge): 20 IV Secured and Dressing Applied: Yes Patient Tolerated Procedure: well and no complications Additional Comments: ultrasound guided peripheral IV Critical Care Time Critical Care Time Critical Care Time: Yes Total Critical Care Time: 40 Attestation: I have personally provided 40 minutes of critical care time exclusive of time spent on separately billable procedures. ?Time includes review of lab data, radiology results, discussion with consultants, and monitoring for potential decompensation. ?Interventions were performed as documented above Discharge Plan Discharge Clinical Impression: Renal failure Patient Disposition: Admitted As Inpatient Prescriptions: No Action carvedilol 12.5 mg Tablet 12.5 mg PO BID 90 Days Qty: 180 0RF Protocol: Hold for SBP/HR < HOLD for SBP < : 90 HOLD for HR < : 60 hydralazine 50 mg Tablet 50 mg PO TID 90 Days Qty: 270 0RF Protocol: Hold for SBP< HOLD for SBP < : 90 sulfamethoxazole-trimethoprim [Bactrim] 400-80 mg tablet 1 tab PO Q24H Qty: 28 0RF Print Language: Iranian
[2024-01-14] MEDS: HYDROmorphone HCl 0.5 MG/0.5 ML SYRINGE IVPUSH (19:49)
[2024-01-14 19:50] LABS: MANUAL DIFF FLAG NO
[2024-01-14 19:50] LABS: Glucose, Whole Blood 132 mg/dL (60-115)
[2024-01-14 19:51] LABS: Basophils Percent Auto 0.4 % (0-2); Eosinophils Absolute Auto 0.2 X10*3/uL (0.0-0.4); Eosinophils Percent Auto 2.2 % (0-4); Hematocrit 25.8 % (37.0-47.0); Hemoglobin 8.5 g/dl (12.0-16.0); Imm Gran Abs Auto 0.03 X10*3/uL (0.00-0.03); Imm Gran Pct Auto 0.4 % (0.0-0.4); Lymphocytes Absolute Auto 0.4 X10*3/uL (1.2-4.9); Lymphocytes Percent Auto 6.1 % (20-40); Mean Corpuscular HGB Conc 32.9 g/dl (31.0-35.0); Mean Corpuscular Hemoglobin 30.7 pg (27.0-33.0); Mean Corpuscular Volume 93.1 fL (80.0-98.0); Mean Platelet Volume 10.9 fL (9.4-12.3); Monocytes Absolute Auto 0.5 X10*3/uL (0.1-1.2); Monocytes Percent Auto 6.3 % (2-11); Neutrophils Absolute Auto 6.1 x10*3/uL (2.0-8.3); Neutrophils Percent Auto 84.6 % (45-73); Platelet Count 150 X10*3/uL (160-400); Red Blood Count 2.77 X10*6/uL (4.20-5.50); Red Cell Distribution Width 17.4 % (11.0-16.0); White Blood Count 7.2 X10*3/uL (4.8-10.8)
[2024-01-14 19:54] LABS: VBG Base Excess -14.4 mmol/L; VBG HCO3 11 mmol/L (22-26); VBG pCO2 28 mmHg; VBG pH 7.22 (7.32-7.43); VBG pO2 53 mmHg
[2024-01-14 20:01] LABS: Venous Blood Gas Refer to POC result
[2024-01-14 20:13] LABS: Calcium 7.1 mg/dL (8.4-10.2); Phosphorus 11.6 mg/dL (2.7-4.5); Troponin-I High Sensitivity 25.6 ng/L (<3.5-17.0)
[2024-01-14 20:14] LABS: HCG Quantitative < 2 mIU/mL
[2024-01-14 20:25] LABS: Alanine Aminotransferase 18 U/L (0-31); Albumin Level 3.5 g/dL (3.5-5.0); Alkaline Phosphatase 180 U/L (39-117); Anion Gap 23 (12-20); Aspartate Amino Transferase 22 U/L (5-31); Bilirubin Total 1.1 mg/dL (0.0-1.0); Blood Urea Nitrogen 112 mg/dL (9-16); Calcium 6.7 mg/dL (8.4-10.2); Carbon Dioxide 12 mmol/L (22-29); Chloride 107 mmol/L (96-108); Creatinine Clr Calc Pharmacy 7.4; Estimated Glomerular Filt Rate 4; Glucose Random 150 mg/dL (60-115); Potassium 4.6 mmol/L (3.3-5.1); Sodium 137 mmol/L (135-145); Total Protein 7.1 g/dL (6.5-8.0)
[2024-01-14] MEDS: Nitroglycerin 2 % Oint 1 GM Packet 1 INCH TRANSDERMA (21:05)
[2024-01-14] MEDS: Furosemide 100 MG/10 ML VIAL IVPUSH (21:09)
--- NOTE | 2024-01-14 21:14 | P.HPHOSP_ITS ---
History of Present Illness Date of Service: 01/14/24 Chief Complaint: Dyspnea This is a 33-year-old female with pertinent history of ESRD on hemodialysis, 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 Patient states her last dialysis was more than a week ago as she was on vacation in [place]. Patient is complaining of increasing dyspnea which has been progressive. Dyspnea is worse when she lays flat. Also did not take her p.o. medications for blood pressure during her vacation. Unclear if she completed her antibiotic course. Not interested in answering further questions regarding HPI. Denies fever, chills, palpitations, abdominal pain. In the emergency department, patient was IV furosemide and Nephrology was consulted. Review of Systems 2 Constitutional: Constitutional: Reports fatigue, Reports malaise and Reports poor appetite Cardiovascular: Cardiovascular: Reports dyspnea on exertion and Reports orthopnea Respiratory: Respiratory: Reports dyspnea on exertion Gastrointestinal: Gastrointestinal: Reports no additional gastrointestinal complaints Genitourinary: Genitourinary: Reports no additional female genitourinary complaints Endocrine: Endocrine: Reports fatigue [facility] Medical History End stage chronic kidney disease Chronic kidney disease Anemia Chronic foot ulcer Plantar ulcer of left foot Major depressive disorder, single episode, severe ESRD (end stage renal disease) Non-compliance with renal dialysis Hypertensive urgency MDD (major depressive disorder), recurrent episode MDD (major depressive disorder) Renal failure Foot ulcer CKD (chronic kidney disease) Hypertension Diabetic foot Hyperkalemia Vomiting Renal failure Hypertension Migraine Chronic pain ESRD on dialysis Non-compliance with renal dialysis Hypertension End-stage renal disease (ESRD) Gastroparesis Diabetic foot ulcer associated with type 2 diabetes mellitus Hypertensive emergency Diabetes ESRD needing dialysis Cardiomyopathy HFrEF (heart failure with reduced ejection fraction) Metabolic acidosis delivery delivered Anemia in chronic kidney disease (CKD) CKD (chronic kidney disease) Headache, migraine Abnormal finding on echocardiogram Elevated troponin Chest pain Acute worsening of stage 3 chronic kidney disease Generalized edema Sepsis Cellulitis Pleural effusion CHF (congestive heart failure) (~06/07/22) Tachycardia Atypical chest pain Bone infection PAD (peripheral artery disease) Severe anemia Cellulitis and abscess of foot DM foot ulcer Osteomyelitis Asthma Depression with anxiety Diabetic retinopathy Type 2 diabetes mellitus with hyperglycemia, with long-term current use of insulin Blind right eye Diabetes Back pain Family History Mother Coronary artery disease Myocardial infarction Stroke Diabetes mellitus Father Myocardial infarction Surgical History Tubal ligation status Previous section Hx laparoscopic cholecystectomy Hx of surgical procedure (~09/11/23) 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 Social History Household Members: Unknown / Unable to assess 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 Housing: Apartment Do you presently have visiting nurse or other home services: No Unable to assess alcohol history related to: Unknown Alcohol intake: never Comment: restraints Patient Tobacco Use Status: Never used Tobacco Smoked in Last 30 Days: No e-Cigarette/Vaping Use: Never Used Use of substances other than those prescribed or required for medical reasons: No Advance Directives: Yes Advance Directives on File: Yes Advance Directives Date on File: 09/04/23 Do you have a plan to hurt others: No Plan service: No Current occupational status: unemployed and disabled Gender identity: Female Meds Allergies Allergy/AdvReac Type Severity Reaction Status Date / Time morphine [MORPHINE] Allergy Intermediate Itching Verified 01/14/24 18:40 azithromycin [From Zithromax] Allergy Hives Verified 01/14/24 18:40 gabapentin Allergy Facial Verified 01/14/24 18:40 Swelling tramadol Allergy Facial Verified 01/14/24 18:40 Swelling vancomycin Allergy Anaphylaxis Verified 01/14/24 18:40 Physical Exam 2 Vital Signs and Narrative: Vital Signs: Last Vital Signs Temp 97.5 F 01/14/24 19:11 Pulse 99 01/14/24 21:03 Resp 17 01/14/24 21:03 BP 207/115 H 01/14/24 21:09 Pulse Ox 93 01/14/24 21:03 O2 Del Method Nasal Cannula 01/14/24 21:03 O2 Flow Rate 2 01/14/24 21:03 Oxygen Flow Rate 2 01/14/24 18:38 BMI result Body Mass Index 26.6 Middle-aged female lying in bed in distress on supplemental oxygen Neck supple, no JVD Regular rate and rhythm, S1-S2 heard Bilateral crackles present Abdomen soft nontender, no guarding, no rigidity Patient is awake, alert and oriented to place and time ; no focal motor deficit Psych: Normal mood Bilateral TMA Results Labs 01/14/24 19:44 01/14/24 19:44 Labs: Laboratory Results - last 24 hr 01/14/24 01/14/24 01/14/24 19:39 19:44 19:44 MCV 93.1 MCH 30.7 MCHC 32.9 RDW 17.4 H Plt Count 150 L MPV 10.9 Immature Gran % (Auto) 0.4 Neut % (Auto) 84.6 H Lymph % (Auto) 6.1 L [place] % (Auto) 6.3 Eos % (Auto) 2.2 Baso % (Auto) 0.4 Lymph # (Auto) 0.4 L [place] # (Auto) 0.5 Eos # (Auto) 0.2 Baso # (Auto) 0.0 Abs Immat Gran (auto) 0.03 Absolute Neuts (auto) 6.1 Absolute Nucleated RBC 0.000 Nucleated RBC % (auto) 0.0 VBG pH VBG pCO2 VBG pO2 VBG HCO3 VBG O2 Saturation VBG Base Excess Anion Gap 23 H Estim Creat Clear Calc 7.4 Estimated GFR 4 POC Glucose 132 H Random Glucose 150 H Calcium 6.7 L D 7.1 L Phosphorus 11.6 H Magnesium 3.0 H Total Bilirubin AST ALT Alkaline Phosphatase Troponin I High Sens Total Protein Albumin Beta HCG, Quant 01/14/24 01/14/24 19:44 19:48 MCV MCH MCHC RDW Plt Count MPV Immature Gran % (Auto) Neut % (Auto) Lymph % (Auto) [place] % (Auto) Eos % (Auto) Baso % (Auto) Lymph # (Auto) [place] # (Auto) Eos # (Auto) Baso # (Auto) Abs Immat Gran (auto) Absolute Neuts (auto) Absolute Nucleated RBC Nucleated RBC % (auto) VBG pH 7.22 L VBG pCO2 28 VBG pO2 53 VBG HCO3 11 L VBG O2 Saturation 74.0 VBG Base Excess -14.4 Anion Gap Estim Creat Clear Calc Estimated GFR POC Glucose Random Glucose Calcium Phosphorus Magnesium 3.0 H Total Bilirubin 1.1 H AST 22 ALT 18 Alkaline Phosphatase 180 H Troponin I High Sens 25.6 H Total Protein 7.1 Albumin 3.5 Beta HCG, Quant < 2 Assessment and Plan (1) Decompensated heart failure: Status: Acute (2) Hypertensive emergency: Status: Acute (3) Non-compliance with renal dialysis: Status: Acute Plan This is a 33-year-old female with pertinent history of ESRD on hemodialysis, 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 #. Acute on chronic congestive heart failure with reduced ejection fraction with chronic hypoxia: Due to noncompliance with hemodialysis. Given IV Lasix in the ER. Consulted Nephrology, appreciate assistance #. Hypertensive emergency in a patient with poorly controlled hypertension due to medication noncompliance: Given IV labetalol in the ER. Resume home antihypertensives #. ESRD on hemodialysis: Missed 1 week of dialysis. Consulted nephrology as above #. Vmg-wgchoez-tgqjgoerg diabetes mellitus with diabetic polyneuropathy/retinopathy: Initiating Accu-Cheks with sliding scale insulin #. Mood disorder: Not on mood stabilizers #. CAD/cardiomyopathy: On beta-mohamud. Not on aspirin or statin #. Chronic pain with opioid seeking behavior: Will avoid IV Dilaudid as much as possible #. Chronic anemia of kidney disease Med rec pending DVT prophylaxis: Heparin Full code Admit as inpatient and will require two night minimum hospital stay for management of decompensated heart failure, monitoring of blood pressure (as above), which is not possible in a lesser acute setting. Quality Stroke Does the patient have a stroke diagnosis?: No VTE Prior VTE?: No VTE Risk Level:: Medical - moderate - high VTE Device Contraindication: Treatment Not Indicated VTE Drug Contraindication: N/A - Med Ordered
[2024-01-14] MEDS: Labetalol HCL 100 MG/20 ML VIAL 10 MG IVPUSH ×2 (21:43→22:27)
[2024-01-14] MEDS: Sodium Bicarbonate 8.4% 50 MEQ/50 ML SYRINGE IVPUSH (21:44)
--- NOTE | 2024-01-14 23:15 | MHC.EDTECH ---
this tech assumed care of pt at 2300, when rounding on pt the pt was witnessed to be sleeping on her left side in stretcher w/ equal chest rise and unlabored respirations. Pt was connected to o2 via NC, and connected to the monitor in room. Appeared to be in no apparent distress, call light within reach if needed.
[2024-01-14] MEDS: 0.9 % Sodium Chloride Flush 3 ML SYRINGE IVFLUSH (23:24)
[2024-01-15] VITALS (16 sets, daily range): BP systolic 85–199; BP diastolic 59–106; PULSE 85–125; RESP 15–44; TEMP 36.4–39.4; O2SAT 2–99; BMI 29.9
--- NOTE | 2024-01-15 00:44 | PC.NURSE ---
Patient crying and tearful with complaints of pain, offered tylenol and oxycodone and patient refused both stating, they don't work.
[2024-01-15 05:06] LABS: Appearance Urine Clear; Color Urine Yellow; Glucose Urine UA 250 mg/dL (Negative); Leukocyte Esterase Urine Negative (Negative); Nitrite Urine Negative (Negative); Specific Gravity - Urine 1.015 (1.005-1.025); UMIC TRIGGER UACC YES; Urine Blood Small (1+) (Negative); Urine Ketones Negative (Negative); Urine Protein >=1000 (4+) mg/dL (Neg-Trace)
[2024-01-15 05:17] LABS: Bacteria Urine None Seen (None Seen); Hyaline Casts Urine 0-2 /LPF (0-2); WBC Urine 0-5 /HPF (0-5)
[2024-01-15 07:03] LABS: Glucose, Whole Blood 105 mg/dL (60-115)
--- NOTE | 2024-01-15 07:34 | PM.CNNEP ---
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, peripheral arterial disease status post bilateral TMA, poorly controlled hypertension due to noncompliance with medications, chronic hypoxic respiratory failure on 4 L baseline supplemental oxygen, congestive heart failure with reduced ejection fraction, mood disorder, chronic pain with opioid seeking behavior, TTS hd, multiple hospitalization due to noncompliance with hemodialysis, PVD, multiple amputations, chronic wounds to her feet + infections - now with having missed HD for the last week [facility] Past Medical History Medical History End stage chronic kidney disease Chronic kidney disease Anemia Chronic foot ulcer Plantar ulcer of left foot Major depressive disorder, single episode, severe ESRD (end stage renal disease) Non-compliance with renal dialysis Hypertensive urgency MDD (major depressive disorder), recurrent episode MDD (major depressive disorder) Renal failure Foot ulcer CKD (chronic kidney disease) Hypertension Diabetic foot Hyperkalemia Vomiting Renal failure Hypertension Migraine Chronic pain ESRD on dialysis Non-compliance with renal dialysis Hypertension End-stage renal disease (ESRD) Gastroparesis Diabetic foot ulcer associated with type 2 diabetes mellitus Hypertensive emergency Diabetes ESRD needing dialysis Cardiomyopathy HFrEF (heart failure with reduced ejection fraction) Metabolic acidosis delivery delivered Anemia in chronic kidney disease (CKD) CKD (chronic kidney disease) Headache, migraine Abnormal finding on echocardiogram Elevated troponin Chest pain Acute worsening of stage 3 chronic kidney disease Generalized edema Sepsis Cellulitis Pleural effusion CHF (congestive heart failure) (~06/07/22) Tachycardia Atypical chest pain Bone infection PAD (peripheral artery disease) Severe anemia Cellulitis and abscess of foot DM foot ulcer Osteomyelitis Asthma Depression with anxiety Diabetic retinopathy Type 2 diabetes mellitus with hyperglycemia, with long-term current use of insulin Blind right eye Diabetes Back pain Family History Family History Mother Coronary artery disease Myocardial infarction Stroke Diabetes mellitus Father Myocardial infarction Surgical History Surgical History Tubal ligation status Previous section Hx laparoscopic cholecystectomy Hx of surgical procedure (~09/11/23) 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 Social History Social History Household Members: Family Household Members Other:: Sister Housing: House Do you presently have visiting nurse or other home services: No Unable to assess alcohol history related to: Unknown Alcohol intake: never Comment: restraints Patient Tobacco Use Status: Never used Tobacco e-Cigarette/Vaping Use: Never Used Advance Directives Date on File: 09/04/23 service: No Current occupational status: unemployed and disabled Gender identity: Female Meds Allergies Allergy/AdvReac Type Severity Reaction Status Date / Time morphine [MORPHINE] Allergy Intermediate Itching Verified 01/14/24 18:40 azithromycin [From Zithromax] Allergy Hives Verified 01/14/24 18:40 gabapentin Allergy Facial Verified 01/14/24 18:40 Swelling tramadol Allergy Facial Verified 01/14/24 18:40 Swelling vancomycin Allergy Anaphylaxis Verified 01/14/24 18:40 Active Medications: Current Medications Acetaminophen (Acetaminophen 325 Mg Tablet) 650 mg PO Q6H PRN PRN Reason: Pain, Mild (Pain Scale 1-3), fever or headache Calcitriol (Calcitriol Oral Soln 0.25 Mcg/0.25 Ml Solution) 0.25 mcg PO MoWeFr@0900 [place] Calcium Carbonate (Calcium Carbonate 750 Mg Tab.Chew) 750 mg PO Q4H PRN PRN Reason: Heartburn Glucose (Glucose Gel 15 Gm Gel..Gram.) 15 gm PO Q15M PRN; Protocol PRN Reason: per Hypoglycemia Standing Ord. Heparin Sodium (Porcine) (Heparin Sodium,Porcine 5,000 Unit/Ml Vial) 5,000 unit SUBCUT Q12H [facility] Last Admin: 01/14/24 21:49 Dose: Not Given Dextrose (D10) 250 mls @ 750 mls/hr IV Q15M PRN; Protocol PRN Reason: per Hypoglycemia Standing Ord. Insulin Human Lispro (Insulin Lispro 100 Unit/Ml 3 Ml Vial) 0 unit SUBCUT QIDACHS [facility]; Protocol Magnesium Hydroxide (Milk Of Magnesia 30 Ml Oral.Susp) 30 ml PO DAILY PRN PRN Reason: Constipation Melatonin (Melatonin 3 Mg Tablet) 6 mg PO BEDTIME PRN PRN Reason: Insomnia Ondansetron HCl (Ondansetron Hcl 4 Mg/2 Ml Vial) 4 mg IVPUSH Q8H PRN PRN Reason: Nausea and Vomiting Oxycodone HCl (Oxycodone Hcl Immed Release 5 Mg Tablet) 5 mg PO Q6H PRN PRN Reason: Pain, Severe (Pain Scale 7-10) Sodium Chloride (0.9 % Sodium Chloride Flush 3 Ml Syringe) 3 ml IVFLUSH QSHIFT [facility] Last Admin: 01/14/24 23:24 Dose: 3 ml Home Medications ?Medication ?Instructions ?Recorded ?Confirmed ?Last Taken ?Type albuterol sulfate 90 mcg/actuation 2 puff inhalation Q6H PRN wheezing 01/15/24 01/15/24 Unknown History aerosol inhaler (Ventolin HFA) lidocaine 5 % topical patch 1 patch topical DAILY 01/15/24 01/15/24 Unknown History nitroglycerin 0.4 mg sublingual 0.4 mg sublingual DIRECTED PRN 01/15/24 01/15/24 Unknown History tablet Angina oxycodone 5 mg tablet 5 mg PO Q8H PRN pain 01/15/24 01/15/24 Unknown History Physical Exam Vital Signs: Last Vital Signs Temp 97.6 F 01/15/24 04:41 Pulse 86 01/15/24 06:59 Resp 16 01/15/24 06:59 BP 181/106 H 01/15/24 06:59 Pulse Ox 98 01/15/24 06:59 O2 Del Method Room Air 01/15/24 06:59 O2 Flow Rate 2 01/15/24 04:41 Oxygen Flow Rate 2 01/14/24 18:38 BMI result Body Mass Index 26.6 cvs: s1s2 Rs; cta Abd; soft Left ij pc site erythematous - no pus Results Lab Results 01/15/24 10:38 01/15/24 10:38 Lab results: Chemistry 01/14/24 01/14/24 19:44 19:44 Sodium 137 Potassium 4.6 D Carbon Dioxide 12 L BUN 112 H Creatinine 10.98 H* Calcium 6.7 L D 7.1 L Phosphorus 11.6 H Hematology 01/14/24 19:44 WBC 7.2 Hgb 8.5 L Plt Count 150 L Urinalysis 01/15/24 04:59 Urine Color Yellow Urine Appearance Clear Urine pH 6.0 Ur Specific [place] 1.015 Urine Protein >=1000 (4+) H Urine Glucose (UA) 250 H Urine Ketones Negative Urine Blood Small (1+) H Urine Nitrite Negative Ur Leukocyte Esterase Negative Urine RBC 3-5 H Urine WBC 0-5 Ur Squamous Epith Cells 3-5 Hyaline Casts 0-2 Assessment and Plan (1) Non-compliance with renal dialysis: Status: Acute Plan ESRD: TTS; Nephrogenic anemia HTN- bp meds Non-compliance Left ij pc site- tender REC: HD per TTS scedule; meds as noted; epo as ordered calcitriol follow blood cultures drawn to rule out Line infection will follow w team Procedures Date of Service Date of Service: 01/15/24
--- NOTE | 2024-01-15 07:46 | HO.PM.IMPN ---
Subjective Subjective Date of Service: 01/15/24 Review of Systems Follow up missed dialysis feels tired with generalized body pain Physical Exam Vital Signs: Vital Signs: Last Vital Signs Temp 97.6 F 01/15/24 04:41 Pulse 86 01/15/24 06:59 Resp 16 01/15/24 06:59 BP 181/106 H 01/15/24 06:59 Pulse Ox 98 01/15/24 06:59 O2 Del Method Room Air 01/15/24 06:59 O2 Flow Rate 2 01/15/24 04:41 Oxygen Flow Rate 2 01/14/24 18:38 BMI result Body Mass Index 26.6 Appearing in no acute distress lung sounds are clear to auscultation heart regular rate rhythm, clear S1, S2 positive bowel sounds, abdomen is soft, nontender neuro patient is alert x3, no focal deficits Objective Data Active Medications Acetaminophen (Acetaminophen 325 Mg Tablet) 650 mg PO Q6H PRN PRN Reason: Pain, Mild (Pain Scale 1-3), fever or headache Calcitriol (Calcitriol Oral Soln 0.25 Mcg/0.25 Ml Solution) 0.25 mcg PO MoWeFr@0900 [facility] Calcium Carbonate (Calcium Carbonate 750 Mg Tab.Chew) 750 mg PO Q4H PRN PRN Reason: Heartburn Glucose (Glucose Gel 15 Gm Gel..Gram.) 15 gm PO Q15M PRN; Protocol PRN Reason: per Hypoglycemia Standing Ord. Heparin Sodium (Porcine) (Heparin Sodium,Porcine 5,000 Unit/Ml Vial) 5,000 unit SUBCUT Q12H [facility] Last Admin: 01/14/24 21:49 Dose: Not Given Documented By: JOSUÉ Non-Admin Reason: Patient Refused Dextrose (D10) 250 mls @ 750 mls/hr IV Q15M PRN; Protocol PRN Reason: per Hypoglycemia Standing Ord. Insulin Human Lispro (Insulin Lispro 100 Unit/Ml 3 Ml Vial) 0 unit SUBCUT QIDACHS [facility]; Protocol Last Admin: 01/15/24 07:35 Dose: Not Given Documented By: SUZANNE Non-Admin Reason: No Insulin Coverage Magnesium Hydroxide (Milk Of Magnesia 30 Ml Oral.Susp) 30 ml PO DAILY PRN PRN Reason: Constipation Melatonin (Melatonin 3 Mg Tablet) 6 mg PO BEDTIME PRN PRN Reason: Insomnia Ondansetron HCl (Ondansetron Hcl 4 Mg/2 Ml Vial) 4 mg IVPUSH Q8H PRN PRN Reason: Nausea and Vomiting Oxycodone HCl (Oxycodone Hcl Immed Release 5 Mg Tablet) 5 mg PO Q6H PRN PRN Reason: Pain, Severe (Pain Scale 7-10) Sodium Chloride (0.9 % Sodium Chloride Flush 3 Ml Syringe) 3 ml IVFLUSH QSHIFT [facility] Last Admin: 01/14/24 23:24 Dose: 3 ml Documented By: JOSUÉ Labs 01/14/24 19:44 01/14/24 19:44 Labs: Laboratory Results - last 24 hr 01/14/24 01/14/24 01/14/24 19:39 19:44 19:44 MCV 93.1 MCH 30.7 MCHC 32.9 RDW 17.4 H Plt Count 150 L MPV 10.9 Immature Gran % (Auto) 0.4 Neut % (Auto) 84.6 H Lymph % (Auto) 6.1 L [place] % (Auto) 6.3 Eos % (Auto) 2.2 Baso % (Auto) 0.4 Lymph # (Auto) 0.4 L [place] # (Auto) 0.5 Eos # (Auto) 0.2 Baso # (Auto) 0.0 Abs Immat Gran (auto) 0.03 Absolute Neuts (auto) 6.1 Absolute Nucleated RBC 0.000 Nucleated RBC % (auto) 0.0 VBG pH VBG pCO2 VBG pO2 VBG HCO3 VBG O2 Saturation VBG Base Excess Anion Gap 23 H Estim Creat Clear Calc 7.4 Estimated GFR 4 POC Glucose 132 H Random Glucose 150 H Calcium 6.7 L D 7.1 L Phosphorus 11.6 H Magnesium 3.0 H Total Bilirubin AST ALT Alkaline Phosphatase Troponin I High Sens Total Protein Albumin Beta HCG, Quant Urine Color Urine Appearance Urine pH Ur Specific [place] Urine Protein Urine Glucose (UA) Urine Ketones Urine Blood Urine Nitrite Ur Leukocyte Esterase Urine RBC Urine WBC Ur Squamous Epith Cells Urine Bacteria Hyaline Casts 01/14/24 01/14/24 01/15/24 19:44 19:48 04:59 MCV MCH MCHC RDW Plt Count MPV Immature Gran % (Auto) Neut % (Auto) Lymph % (Auto) [place] % (Auto) Eos % (Auto) Baso % (Auto) Lymph # (Auto) [place] # (Auto) Eos # (Auto) Baso # (Auto) Abs Immat Gran (auto) Absolute Neuts (auto) Absolute Nucleated RBC Nucleated RBC % (auto) VBG pH 7.22 L VBG pCO2 28 VBG pO2 53 VBG HCO3 11 L VBG O2 Saturation 74.0 VBG Base Excess -14.4 Anion Gap Estim Creat Clear Calc Estimated GFR POC Glucose Random Glucose Calcium Phosphorus Magnesium 3.0 H Total Bilirubin 1.1 H AST 22 ALT 18 Alkaline Phosphatase 180 H Troponin I High Sens 25.6 H Total Protein 7.1 Albumin 3.5 Beta HCG, Quant < 2 Urine Color Yellow Urine Appearance Clear Urine pH 6.0 Ur Specific [place] 1.015 Urine Protein >=1000 (4+) H Urine Glucose (UA) 250 H Urine Ketones Negative Urine Blood Small (1+) H Urine Nitrite Negative Ur Leukocyte Esterase Negative Urine RBC 3-5 H Urine WBC 0-5 Ur Squamous Epith Cells 3-5 Urine Bacteria None Seen Hyaline Casts 0-2 01/15/24 06:57 MCV MCH MCHC RDW Plt Count MPV Immature Gran % (Auto) Neut % (Auto) Lymph % (Auto) [place] % (Auto) Eos % (Auto) Baso % (Auto) Lymph # (Auto) [place] # (Auto) Eos # (Auto) Baso # (Auto) Abs Immat Gran (auto) Absolute Neuts (auto) Absolute Nucleated RBC Nucleated RBC % (auto) VBG pH VBG pCO2 VBG pO2 VBG HCO3 VBG O2 Saturation VBG Base Excess Anion Gap Estim Creat Clear Calc Estimated GFR POC Glucose 105 Random Glucose Calcium Phosphorus Magnesium Total Bilirubin AST ALT Alkaline Phosphatase Troponin I High Sens Total Protein Albumin Beta HCG, Quant Urine Color Urine Appearance Urine pH Ur Specific [place] Urine Protein Urine Glucose (UA) Urine Ketones Urine Blood Urine Nitrite Ur Leukocyte Esterase Urine RBC Urine WBC Ur Squamous Epith Cells Urine Bacteria Hyaline Casts Assessment and Plan (1) Medical non-compliance: Status: Acute Plan 33-year-old female with pertinent history of ESRD on hemodialysis, 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 Acute on chronic congestive heart failure with reduced ejection fraction with chronic hypoxia Due to noncompliance with hemodialysis. Given IV Lasix in the ER. Consulted Nephrology>plan for dialysis today Hypertensive emergency in a patient with poorly controlled hypertension due to medication noncompliance Given IV labetalol in the ER. Resume home antihypertensives ESRD on hemodialysis Missed 1 week of dialysis. Consulted nephrology as above [id number] diabetes mellitus with diabetic polyneuropathy/retinopathy Initiating Accu-Cheks with sliding scale insulin Mood disorder Not on mood stabilizers CAD/cardiomyopathy On beta-mohamud. Not on aspirin or statin Chronic pain with opioid seeking behavior Will avoid IV Dilaudid as much as possible Chronic anemia secondary to kidney disease DVT prophylaxis: Heparin Attending Dr. Weeks Full code Quality Stroke Does the patient have a stroke diagnosis?: No VTE Prior VTE?: No VTE Risk Level:: Medical - moderate - high VTE Device Contraindication: Treatment Not Indicated VTE Drug Contraindication: N/A - Med Ordered
--- NOTE | 2024-01-15 08:38 | PC.NURSE ---
pt off unit to dialysis - ok to go to dialysis without tele monitoring per Tawny SIGALA
[2024-01-15] MEDS: ondansetron HCL 4 MG/2 ML VIAL IVPUSH ×2 (10:17→20:15)
--- NOTE | 2024-01-15 10:26 | PC.NURSE ---
Holly from Dialysis called this RN as pt was experiencing extreme pain all over and nausea. Informed Holly that this RN would bring PO oxycodone and zofran to administer. on my way up to dialysis Rapid was called on pt who was diaphoretic, tremulous, tachypnic and hypoxic. this RN administered Zofran at 10:17 with Verbal decision from Tawny SIGALA at bedside to hold PO med Oxycodone at this time. pts Vitals: 10:13 - 188/159, 89% 15L NRB, 97.9 temporal 22RR 10:14 - 173/121, 91% 5L NRB, 22RR
--- NOTE | 2024-01-15 10:49 | PM.EVENT ---
Event Note Date of Service: 01/15/24 Event Note: Rapid response called around 10:15 for diaphoresis, tremulousness, tachypnea, hypoxia while in dialysis. Patient was given Zofran at 10:17. She verbalized that she felt like she could not breathe. Blood pressures were elevated with highest reading of 188/159, 89% oxygen saturation, placed on 15 L non-rebreather, temperature 97.9 degrees with respiratory rate of 22. With the non-rebreather she was 91-95%. Table Games Dealer evaluated patient and suggested giving pain medication to help patient remained calm as patient has a history of generalized body pain. Patient does have a left chest dialysis cath that. Mildly reddened around the periphery, possible line sepsis. Blood cultures drawn, previous chest x-ray and urinalysis negative. We will start broad-spectrum antibiotics. Patient stable at this time. low threshold to tx to ICU Time Spent With Patient Time: Total time managing care of this patient today ____ minutes.
[2024-01-15 11:01] LABS: Hematocrit 25.6 % (37.0-47.0); Hemoglobin 8.5 g/dl (12.0-16.0); Mean Corpuscular HGB Conc 33.2 g/dl (31.0-35.0); Mean Corpuscular Hemoglobin 30.7 pg (27.0-33.0); Mean Corpuscular Volume 92.4 fL (80.0-98.0); Mean Platelet Volume 11.5 fL (9.4-12.3); Platelet Count 144 X10*3/uL (160-400); Red Blood Count 2.77 X10*6/uL (4.20-5.50); Red Cell Distribution Width 17.5 % (11.0-16.0); White Blood Count 4.6 X10*3/uL (4.8-10.8)
[2024-01-15 11:27] LABS: Anion Gap 25 (12-20); Blood Urea Nitrogen 93 mg/dL (9-16); Calcium 7.8 mg/dL (8.4-10.2); Carbon Dioxide 16 mmol/L (22-29); Chloride 103 mmol/L (96-108); Creatinine Clr Calc Pharmacy 9.9; Estimated Glomerular Filt Rate 6; Glucose Random 64 mg/dL (60-115); Potassium 4.1 mmol/L (3.3-5.1); Sodium 140 mmol/L (135-145)
[2024-01-15] MEDS: Piperacillin Sodium/Tazobactam 2.25 GM in 0.9 % Sodium Chloride 50 ML IV ×2 (11:37→18:28)
[2024-01-15] MEDS: HYDROmorphone HCl 0.5 MG/0.5 ML SYRINGE IVPUSH (11:39)
[2024-01-15 11:49] LABS: Glucose, Whole Blood 35 mg/dL (60-115)
[2024-01-15] MEDS: Dextrose 25 % 2.5 GM/10 ML SYRINGE IVPUSH (11:55)
[2024-01-15 11:59] LABS: Glucose, Whole Blood 112 mg/dL (60-115)
[2024-01-15] MEDS: Acetaminophen 325 MG TABLET 650 MG PO ×2 (12:08→20:15)
--- NOTE | 2024-01-15 12:09 | PC.NURSE ---
Verbal order from ICU Stencil Maker to keep pt NPO at this time. ok to given PO tylenol for rectal temp 103
[2024-01-15 12:50] LABS: Glucose, Whole Blood 55 mg/dL (60-115)
[2024-01-15] MEDS: Dextrose 10 % 250 ML 750 ML IV ×3 (12:51→23:24)
[2024-01-15 13:15] LABS: Glucose, Whole Blood 128 mg/dL (60-115)
[2024-01-15] MEDS: iohexoL 350 MG/ML 75 ML INFUS..BTL 85 ML IV (13:31)
[2024-01-15 13:49] LABS: Glucose, Whole Blood 74 mg/dL (60-115)
[2024-01-15 14:23] LABS: Glucose, Whole Blood 77 mg/dL (60-115)
--- NOTE | 2024-01-15 14:31 | PHA.MEDREC ---
Pharmacy Consult ? Medication Reconciliation Pharmacy has completed the medication reconciliation. Spoke to patient at bedside with animal care technician services, she was able to confirm all her medications but was unsure when she last took them. Stated she doesn't take anything OTC.
--- NOTE | 2024-01-15 14:41 | PM.SEPBOLA4 ---
Sepsis Bolus Exclusion Sepsis Bolus Exclusion CHF/Renal Failure Date of Occurrence: 01/15/24 This patient met severe sepsis criteria due to the following condition(s):: Hypotension In my clinical judgement the administration of 30 ml/kg of crystalloid would be detrimental to this patient due to the patient's following conditions:: Stage III or IV Chronic Kidney Disease (GFR<30) Other (must be specific):: hypotension is secondary to hypoglycemia and not sepsis. Replace the 30 mls/kg with (Zero amount not acceptable and all fluids for severe sepsis must be given at GREATER than 125 mls/hr) *Note: One of the reynolds must be documented
--- NOTE | 2024-01-15 14:42 | W.PM.CCCN ---
History of Present Illness Data of Consult Service Date: 01/15/24 Primary Care Provider: Genevieve Casillas MD HPI Reason for consult: Altered mental status 33-year-old lady well known to the service due to noncompliance to dialysis resulting in frequent ED and hospital visits presents to the ED after missing dialysis for over a week. She was undergoing hemodialysis when she became altered and short of breath so rapid response was called. Later she had drop in blood pressure which was associated with hypoglycemia, possibly all the symptoms were related to hypoglycemia. Review of Systems Review of Systems: Unable to obtain due to altered mental status [facility] Past Medical History Medical History End stage chronic kidney disease Chronic kidney disease Anemia Chronic foot ulcer Plantar ulcer of left foot Major depressive disorder, single episode, severe ESRD (end stage renal disease) Non-compliance with renal dialysis Hypertensive urgency MDD (major depressive disorder), recurrent episode MDD (major depressive disorder) Renal failure Foot ulcer CKD (chronic kidney disease) Hypertension Diabetic foot Hyperkalemia Vomiting Renal failure Hypertension Migraine Chronic pain ESRD on dialysis Non-compliance with renal dialysis Hypertension End-stage renal disease (ESRD) Gastroparesis Diabetic foot ulcer associated with type 2 diabetes mellitus Hypertensive emergency Diabetes ESRD needing dialysis Cardiomyopathy HFrEF (heart failure with reduced ejection fraction) Metabolic acidosis delivery delivered Anemia in chronic kidney disease (CKD) CKD (chronic kidney disease) Headache, migraine Abnormal finding on echocardiogram Elevated troponin Chest pain Acute worsening of stage 3 chronic kidney disease Generalized edema Sepsis Cellulitis Pleural effusion CHF (congestive heart failure) (~06/07/22) Tachycardia Atypical chest pain Bone infection PAD (peripheral artery disease) Severe anemia Cellulitis and abscess of foot DM foot ulcer Osteomyelitis Asthma Depression with anxiety Diabetic retinopathy Type 2 diabetes mellitus with hyperglycemia, with long-term current use of insulin Blind right eye Diabetes Back pain Family History Family History Mother Coronary artery disease Myocardial infarction Stroke Diabetes mellitus Father Myocardial infarction Surgical History Surgical History Tubal ligation status Previous section Hx laparoscopic cholecystectomy Hx of surgical procedure (~09/11/23) 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 Social History Social History Household Members: Family Household Members Other:: Sister Housing: House Do you presently have visiting nurse or other home services: No Unable to assess alcohol history related to: Unknown Alcohol intake: never Comment: restraints Patient Tobacco Use Status: Never used Tobacco e-Cigarette/Vaping Use: Never Used Advance Directives Date on File: 09/04/23 service: No Current occupational status: unemployed and disabled Gender identity: Female Meds Allergies Allergy/AdvReac Type Severity Reaction Status Date / Time morphine [MORPHINE] Allergy Intermediate Itching Verified 01/14/24 18:40 azithromycin [From Zithromax] Allergy Hives Verified 01/14/24 18:40 gabapentin Allergy Facial Verified 01/14/24 18:40 Swelling tramadol Allergy Facial Verified 01/14/24 18:40 Swelling vancomycin Allergy Anaphylaxis Verified 01/14/24 18:40 Active Medications: Current Medications Acetaminophen (Acetaminophen 325 Mg Tablet) 650 mg PO Q6H PRN PRN Reason: Pain, Mild (Pain Scale 1-3), fever or headache Last Admin: 01/15/24 12:08 Dose: 650 mg Calcitriol (Calcitriol Oral Soln 0.25 Mcg/0.25 Ml Solution) 0.25 mcg PO MoWeFr@0900 [facility] Calcium Carbonate (Calcium Carbonate 750 Mg Tab.Chew) 750 mg PO Q4H PRN PRN Reason: Heartburn Glucose (Glucose Gel 15 Gm Gel..Gram.) 15 gm PO Q15M PRN; Protocol PRN Reason: per Hypoglycemia Standing Ord. Heparin Sodium (Porcine) (Heparin Sodium,Porcine 5,000 Unit/Ml Vial) 5,000 unit SUBCUT Q12H [facility] Last Admin: 01/15/24 11:17 Dose: Not Given Dextrose (D10) 250 mls @ 750 mls/hr IV Q15M PRN; Protocol PRN Reason: per Hypoglycemia Standing Ord. Last Infusion: 01/15/24 13:17 Dose: Infused Piperacillin Sod/Tazobactam (Sod 2.25 gm/ Sodium Chloride) 50 mls @ 100 mls/hr IV Q8H [facility] Last Infusion: 01/15/24 12:28 Dose: Infused Insulin Human Lispro (Insulin Lispro 100 Unit/Ml 3 Ml Vial) 0 unit SUBCUT QIDACHS [facility]; Protocol Last Admin: 01/15/24 11:52 Dose: Not Given Magnesium Hydroxide (Milk Of Magnesia 30 Ml Oral.Susp) 30 ml PO DAILY PRN PRN Reason: Constipation Melatonin (Melatonin 3 Mg Tablet) 6 mg PO BEDTIME PRN PRN Reason: Insomnia Ondansetron HCl (Ondansetron Hcl 4 Mg/2 Ml Vial) 4 mg IVPUSH Q8H PRN PRN Reason: Nausea and Vomiting Last Admin: 01/15/24 10:17 Dose: 4 mg Oxycodone HCl (Oxycodone Hcl Immed Release 5 Mg Tablet) 5 mg PO Q6H PRN PRN Reason: Pain, Severe (Pain Scale 7-10) Sodium Chloride (0.9 % Sodium Chloride Flush 3 Ml Syringe) [facility] Last Admin: 01/15/24 09:38 Dose: Not Given Home Medications ?Medication ?Instructions ?Recorded ?Confirmed ?Last Taken ?Type albuterol sulfate 90 mcg/actuation 2 puff inhalation Q6H PRN wheezing 01/15/24 01/15/24 Unknown History aerosol inhaler (Ventolin HFA) lidocaine 5 % topical patch 1 patch topical DAILY 01/15/24 01/15/24 Unknown History nitroglycerin 0.4 mg sublingual 0.4 mg sublingual DIRECTED PRN 01/15/24 01/15/24 Unknown History tablet Angina oxycodone 5 mg tablet 5 mg PO Q8H PRN pain 01/15/24 01/15/24 Unknown History Physical Exam Vital Signs: Vital Signs: Last Vital Signs Temp 101.5 F H 01/15/24 14:21 Pulse 109 H 01/15/24 14:00 Resp 15 01/15/24 14:00 BP 199/105 H 01/15/24 14:00 Pulse Ox 97 01/15/24 14:00 O2 Del Method Nasal Cannula 01/15/24 14:00 O2 Flow Rate 10 01/15/24 12:52 Oxygen Flow Rate 2 01/14/24 18:38 BMI result Body Mass Index 29.9 General: In somewhat acute distress, ill appearing and tired appearing Nutritional Appearance: well nourished and overweight Eyes: appearance normal, both eyes and all related structures; Alignment and Position: alignment normal and position normal Neck: No lymphadenopathy, no thyromegaly Resp: bilateral air entry equal, occasional added sounds present Cardio: Regular rate, regular rhythm; Heart sounds: S1 normal heart sound present and S2 normal heart sound present GI: soft, nontender, no guarding, no hepatosplenomegaly : bladder normal to inspection, bladder normal to palpation, no renal angle tenderness Skin: no rashes or lesions noted and elasticity normal Neuro: Confused and moves all extremities Results Labs 01/15/24 10:38 01/15/24 10:38 Labs: Short CBC 01/14/24 01/15/24 Range/Units 19:44 10:38 WBC 7.2 4.6 L (4.8-10.8) X10*3/uL Hgb 8.5 L 8.5 L (12.0-16.0) g/dl Hct 25.8 L 25.6 L (37.0-47.0) % Plt Count 150 L 144 L (160-400) X10*3/uL BMP 01/14/24 01/14/24 01/15/24 19:44 19:44 10:38 Sodium 137 140 Potassium 4.6 D 4.1 Chloride 107 103 Carbon Dioxide 12 L 16 L BUN 112 H 93 H Creatinine 10.98 H* 8.11 H* Calcium 6.7 L D 7.1 L 7.8 L D Liver Function 01/14/24 Range/Units 19:44 Total Bilirubin 1.1 H (0.0-1.0) mg/dL AST 22 (5-31) U/L ALT 18 (0-31) U/L Alkaline Phosphatase 180 H (39-117) U/L Albumin 3.5 (3.5-5.0) g/dL Urine 01/15/24 Range/Units 04:59 Urine Color Yellow Urine Appearance Clear Urine pH 6.0 (5.0-9.0) Ur Specific [place] 1.015 (1.005-1.025) Urine Protein >=1000 (4+) H (Neg-Trace) mg/dL Urine Glucose (UA) 250 H (Negative) mg/dL Assessment and Plan (1) Hypertension, uncontrolled: Status: Acute (2) Hypertensive emergency: Status: Acute (3) Congestive heart failure: Status: Acute (4) Decompensated heart failure: Status: Acute (5) Pericarditis: Status: Acute (6) Non-compliance with renal dialysis: Status: Acute (7) Unspecified hypertension, condition or complication: Status: Acute Plan 33-year-old lady well known to the service due to noncompliance to dialysis resulting in frequent ED and hospital visits presents to the ED after missing dialysis for over a week. She was undergoing hemodialysis when she became altered and short of breath so rapid response was called. Later she had drop in blood pressure which was associated with hypoglycemia, possibly all the symptoms were related to hypoglycemia. Doing a [place] CT chest abdomen and pelvis to rule out any source of infection. She had a recent tunneled catheter replacement 2 months ago for Pseudomonas infection. Continue Zosyn Breathing and mental status improved after correction of hypoglycemia. Currently patient is talking to her boyfriend, is on 4 L simple mask oxygen with a respiratory rate around 20. She will remain hypertensive until she gets a good session of dialysis with ultrafiltrate. We will resume all home medications. As such patient is very hypertensive to 170s and 190s due to dialysis noncompliance. There was 1 episode of drop in the blood pressure is this was associated with blood sugar 35 which got corrected as soon as the blood sugar was treated. The episode of hypotension is secondary to hypoglycemia and not due to sepsis. Patient is end-stage renal disease patient so now fluids was ordered
--- NOTE | 2024-01-15 15:20 | MHC.CM.PN ---
IMM 01/14. CM intake assessment completed with pts sister/HCP Mary. Pt lives at home with her sister/[employer], she uses a wheelchair. Pt goes to [facility] for HD on //Sat. Pt will need assistance with transport home. PCP: Dr. Genevieve Casillas
[2024-01-15 15:34] LABS: Glucose, Whole Blood 72 mg/dL (60-115)
[2024-01-15 16:23] LABS: Glucose, Whole Blood 78 mg/dL (60-115)
[2024-01-15 18:25] LABS: Glucose, Whole Blood 74 mg/dL (60-115)
[2024-01-15 19:26] LABS: Glucose, Whole Blood 69 mg/dL (60-115)
[2024-01-15] MEDS: oxyCODONE HCl Immed Release 5 MG TABLET PO (20:00)
[2024-01-15 20:13] LABS: Glucose, Whole Blood 153 mg/dL (60-115)
[2024-01-15 21:07] LABS: Glucose, Whole Blood 81 mg/dL (60-115)
[2024-01-15] MEDS: 0.9 % Sodium Chloride Flush 3 ML SYRINGE IVFLUSH (23:26)
[2024-01-15 23:27] LABS: Glucose, Whole Blood 62 mg/dL (60-115)
[2024-01-16] VITALS (10 sets, daily range): BP systolic 117–144; BP diastolic 65–95; PULSE 84–93; RESP 16–20; TEMP 36.2–37.2; O2SAT 89–100; BMI 29.5
[2024-01-16 00:10] LABS: Glucose, Whole Blood 113 mg/dL (60-115)
[2024-01-16] MEDS: Piperacillin Sodium/Tazobactam 2.25 GM in 0.9 % Sodium Chloride 50 ML IV ×3 (02:12→17:49)
[2024-01-16] MEDS: oxyCODONE HCl Immed Release 5 MG TABLET PO (02:21)
[2024-01-16 02:25] LABS: Glucose, Whole Blood 75 mg/dL (60-115)
--- NOTE | 2024-01-16 03:21 | HO.SKINPHOTO ---
Addendum entered by Ginny Wheeler RN 01/16/24 03:34: Pt reports wound dressings are changed daily at home by her sister. Reports placing Durafiber AG in the wound beds and then applying 4x4 guaze with Kerlix cling wrap covering. All wound old dressing scant amount of yellow drainage and only left heel wound odorous. Wounds cleansed w/NS, Durafiber AG placed w/guaze and Kerlix cling wrap covering. Wound consult placed. Patient tolerated dressing changes well. Original Note: Left Bottom foot wound Left Heel Wound additional picture. Left heel wound additional picture Left Heel Wound additional picture Right Front Foot Wound
[2024-01-16 04:15] LABS: Glucose, Whole Blood 76 mg/dL (60-115)
[2024-01-16 06:10] LABS: Glucose, Whole Blood 66 mg/dL (60-115)
[2024-01-16] MEDS: ondansetron HCL 4 MG/2 ML VIAL IVPUSH ×2 (06:18→17:32)
[2024-01-16] MEDS: Dextrose 10 % 250 ML 750 ML IV ×2 (06:20→10:51)
[2024-01-16 07:35] LABS: Glucose, Whole Blood 72 mg/dL (60-115)
[2024-01-16 08:34] LABS: Glucose, Whole Blood 65 mg/dL (60-115)
[2024-01-16] MEDS: Dextrose 50 % 25 GM/50 ML SYRINGE IVPUSH (08:57)
[2024-01-16] MEDS: 0.9 % Sodium Chloride Flush 3 ML SYRINGE IVFLUSH ×3 (08:58→21:12)
[2024-01-16 10:31] LABS: Glucose, Whole Blood 67 mg/dL (60-115)
[2024-01-16] MEDS: Dextrose 10 % 1,000 ML 50 ML IVCONT (11:08)
[2024-01-16] MEDS: HYDROmorphone HCl 0.5 MG/0.5 ML SYRINGE IVPUSH ×3 (11:32→21:11)
--- NOTE | 2024-01-16 12:53 | P.PNIM_ITS ---
Subjective Subjective Date of Service: 01/16/24 Review of Systems Follow up missed dialysis feels tired with generalized body pain Physical Exam 2 Vital Signs: Vital Signs: Last Vital Signs Temp 98.0 F 01/16/24 11:05 Pulse 90 01/16/24 11:05 Resp 20 01/16/24 11:05 BP 144/77 H 01/16/24 11:05 Pulse Ox 92 01/16/24 12:13 O2 Del Method Oxymask 01/16/24 12:13 O2 Flow Rate 7 01/16/24 12:13 Oxygen Flow Rate 2 01/14/24 18:38 BMI result Body Mass Index 29.5 Appearing in no acute distress, blind lung sounds are clear to auscultation heart regular rate rhythm, clear S1, S2 positive bowel sounds, abdomen is soft, nontender neuro patient is alert x3, no focal deficits Bilateral TMA Objective Data Active Medications Acetaminophen (Acetaminophen 325 Mg Tablet) 650 mg PO Q6H PRN PRN Reason: Pain, Mild (Pain Scale 1-3), fever or headache Last Admin: 01/15/24 20:15 Dose: 650 mg Documented By: MONTEZ Calcitriol (Calcitriol Oral Soln 0.25 Mcg/0.25 Ml Solution) 0.25 mcg PO MoWeFr@0900 [facility] Last Admin: 01/16/24 10:26 Dose: Not Given Documented By: ARPIT Non-Admin Reason: Patient Refused Calcium Carbonate (Calcium Carbonate 750 Mg Tab.Chew) 750 mg PO Q4H PRN PRN Reason: Heartburn Glucose (Glucose Gel 15 Gm Gel..Gram.) 15 gm PO Q15M PRN; Protocol PRN Reason: per Hypoglycemia Standing Ord. Heparin Sodium (Porcine) (Heparin Sodium,Porcine 5,000 Unit/Ml Vial) 5,000 unit SUBCUT Q12H [facility] Last Admin: 01/16/24 08:58 Dose: Not Given Documented By: ARPIT Non-Admin Reason: Patient Refused Hydromorphone HCl (Hydromorphone Hcl 0.5 Mg/0.5 Ml Syringe) 0.5 mg IVPUSH Q4H PRN; Protocol PRN Reason: Pain, Severe (Pain Scale 7-10) Last Admin: 01/16/24 11:32 Dose: 0.5 mg Documented By: ARPIT Dextrose (D10) 250 mls @ 750 mls/hr IV Q15M PRN; Protocol PRN Reason: per Hypoglycemia Standing Ord. Last Infusion: 01/16/24 11:11 Dose: Infused Documented By: ARPIT Piperacillin Sod/Tazobactam (Sod 2.25 gm/ Sodium Chloride) 50 mls @ 100 mls/hr IV Q8H [facility] Last Infusion: 01/16/24 10:52 Dose: Infused Documented By: ARPIT Dextrose (D10) 1,000 mls @ 50 mls/hr IVCONT .Q20H [facility] Last Admin: 01/16/24 11:08 Dose: 50 mls/hr Documented By: ARPIT Insulin Human Lispro (Insulin Lispro 100 Unit/Ml 3 Ml Vial) [facility]; Protocol Last Admin: 01/16/24 10:36 Dose: Not Given Documented By: ARPIT Non-Admin Reason: No Insulin Coverage Magnesium Hydroxide (Milk Of Magnesia 30 Ml Oral.Susp) 30 ml PO DAILY PRN PRN Reason: Constipation Melatonin (Melatonin 3 Mg Tablet) 6 mg PO BEDTIME PRN PRN Reason: Insomnia Ondansetron HCl (Ondansetron Hcl 4 Mg/2 Ml Vial) 4 mg IVPUSH Q8H PRN PRN Reason: Nausea and Vomiting Last Admin: 01/16/24 06:18 Dose: 4 mg Documented By: MONTEZ Comments: Nausea and dry heaving Sodium Chloride (0.9 % Sodium Chloride Flush 3 Ml Syringe) 3 ml IVFLUSH [facility] Last Admin: 01/16/24 08:58 Dose: 3 ml Documented By: ARPIT Labs 01/15/24 10:38 01/15/24 10:38 Labs: Laboratory Results - last 24 hr 01/15/24 01/15/24 01/15/24 13:09 13:39 14:16 POC Glucose 128 H 74 77 01/15/24 01/15/24 01/15/24 15:29 16:19 18:19 POC Glucose 72 78 74 01/15/24 01/15/24 01/15/24 19:21 19:54 21:03 POC Glucose 69 153 H 81 01/15/24 01/16/24 01/16/24 23:20 00:06 02:19 POC Glucose 62 113 75 01/16/24 01/16/24 01/16/24 04:10 05:59 07:31 POC Glucose 76 66 72 01/16/24 01/16/24 08:30 10:12 POC Glucose 65 67 Microbiology Microbiology Results: Microbiology 01/15/24 10:38 Blood Culture - Preliminary Blood - Arterial Line Prelim: GNR Gram Stain only 01/15/24 10:38 Blood Culture - Preliminary Blood - Arterial Line Prelim: GNR Gram Stain only Assessment and Plan (1) Medical non-compliance: Status: Acute Plan 33-year-old female with pertinent history of ESRD on hemodialysis, 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 Bacteremia GNR 2/2, taken from cath Zosyn ID consult pending will likely need remove catheter and replace repeat cx pending Acute on chronic congestive heart failure with reduced ejection fraction with chronic hypoxia Due to noncompliance with hemodialysis. Given IV Lasix in the ER. Nephro following patient had dialysis 01/14, RR called for unresponsiveness secondary to hypoglycemia, tx to ICU for hypotension, tx back to tele a few hours later plan for 3 hrs of dialysis today Hypertensive emergency in a patient with poorly controlled hypertension due to medication noncompliance Given IV labetalol in the ER. Resume home antihypertensives ESRD on hemodialysis Missed 1 week of dialysis. nephrology following Ksm-jgjgsig-biwsciqjl diabetes mellitus with diabetic polyneuropathy/retinopathy with hypoglycemia Accu-Cheks Q4h due to hypoglycemia, likely secondary to bacteremia started on D10 IV cont Mood disorder Not on mood stabilizers CAD/cardiomyopathy On beta-mohamud. 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 DVT prophylaxis: Heparin Attending Dr. Weeks Full code Quality Stroke Does the patient have a stroke diagnosis?: No VTE Prior VTE?: No VTE Risk Level:: Medical - moderate - high VTE Device Contraindication: Treatment Not Indicated VTE Drug Contraindication: N/A - Med Ordered
[2024-01-16 13:55] LABS: Glucose, Whole Blood 95 mg/dL (60-115)
[2024-01-16 13:55] LABS: Glucose, Whole Blood 162 mg/dL (60-115)
--- NOTE | 2024-01-16 14:54 | HO.WOUND ---
Wound Consult: Initial 33yr old female admitted to [facility] on 01/14/24 21:13 - See progress notes and H&P for detailed history.? Wound consult placed for Bilateral Foot wounds.? 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
--- NOTE | 2024-01-16 15:11 | MHC.CM.PN ---
EMR reviewed and per MD rounds, pt is not medically cleared for discharge due to management of bacteremia.
[2024-01-16 15:53] LABS: Glucose, Whole Blood 71 mg/dL (60-115)
[2024-01-16 17:32] LABS: Glucose, Whole Blood 75 mg/dL (60-115)
[2024-01-16] MEDS: Dextrose 10 % 1,000 ML 100 ML IVCONT (17:42)
[2024-01-16 21:01] LABS: Glucose, Whole Blood 136 mg/dL (60-115)
[2024-01-17] MEDS: HYDROmorphone HCl 0.5 MG/0.5 ML SYRINGE IVPUSH ×6 (01:33→22:47)
[2024-01-17] MEDS: Piperacillin Sodium/Tazobactam 2.25 GM in 0.9 % Sodium Chloride 50 ML IV ×3 (01:34→18:38)
[2024-01-17 03:31] VITALS: BP 163/91; PULSE 80; RESP 18; TEMP 36.1; O2SAT 100
[2024-01-17 03:52] LABS: Glucose, Whole Blood 110 mg/dL (60-115)
--- NOTE | 2024-01-17 04:07 | PC.NURSE ---
Pt AOx3, able to make needs known. Throughout shift pt has refused POC even after education and care in general. She continues to have very poor PO intake. Pt finally allowed staff to properly bladder scan her, edwards catheter inserted d/t retention. Pt is on IVF 100ml/hr and has no urge to urinate. tigered and aware. Bed alarm on, call moore within reach.
[2024-01-17 05:21] VITALS: RESP 16
[2024-01-17 05:54] VITALS: BMI 29.0
[2024-01-17] MEDS: Dextrose 10 % 1,000 ML 100 ML IVCONT ×2 (06:06→18:38)
[2024-01-17 07:11] LABS: Glucose, Whole Blood 86 mg/dL (60-115)
[2024-01-17 07:22] VITALS: BP 147/73; PULSE 78; RESP 20; TEMP 36.2; O2SAT 100
[2024-01-17] MEDS: ondansetron HCL 4 MG/2 ML VIAL IVPUSH ×2 (09:46→14:21)
[2024-01-17] MEDS: 0.9 % Sodium Chloride Flush 3 ML SYRINGE IVFLUSH ×2 (09:46→22:47)
[2024-01-17 09:58] LABS: Glucose, Whole Blood 94 mg/dL (60-115)
[2024-01-17 11:09] VITALS: BP 142/65; PULSE 80; RESP 20; TEMP 36.9; O2SAT 94
[2024-01-17 11:54] LABS: Glucose, Whole Blood 103 mg/dL (60-115)
--- NOTE | 2024-01-17 12:12 | HO.PM.IMPN ---
Subjective Subjective Date of Service: 01/17/24 Interval History: seen and examined this morning follow up for bacteremia, CHF, hypoglycemia denies sob at this time refused lab work this morning Review of Systems Review of Systems: Yes all other systems are reviewed and are negative Constitutional Constitutional: Denies chills and Denies fever(s) Cardiovascular Cardiovascular: Denies chest pain and Denies dyspnea Respiratory Respiratory: Denies dyspnea Gastrointestinal Gastrointestinal: Denies abdominal pain Physical Exam Vital Signs: Vital Signs: Last Vital Signs Temp 98.4 F 01/17/24 11:09 Pulse 80 01/17/24 11:09 Resp 20 01/17/24 11:09 BP 142/65 H 01/17/24 11:09 Pulse Ox 94 01/17/24 11:09 O2 Del Method Nasal Cannula 01/17/24 11:09 O2 Flow Rate 5 01/17/24 11:09 Oxygen Flow Rate 2 01/14/24 18:38 BMI result Body Mass Index 29.0 Const: General: comfortable, no acute distress, alert and awake Nutritional Appearance: average body habitus Orientation/consciousness: patient oriented x3 Resp: Effort & Inspection: normal respiratory effort, able to speak in complete sentences, no respiratory distress and no use of accessory muscles Cardio: Rate: regular rate GI: Inspection: No distended Palpation (GI): Soft to palpation and nontender Skin: Other: b/l tma; dressing c/d/i Neuro: General: patient oriented x3, moves all extremities and CN's II-XI intact bilaterally Extrem: Other: 1+edema b/l legs Objective Data Active Medications Acetaminophen (Acetaminophen 325 Mg Tablet) 650 mg PO Q6H PRN PRN Reason: Pain, Mild (Pain Scale 1-3), fever or headache Last Admin: 01/15/24 20:15 Dose: 650 mg Documented By: MONTEZ Calcitriol (Calcitriol Oral Soln 0.25 Mcg/0.25 Ml Solution) 0.25 mcg PO MoWeFr@0900 [facility] Last Admin: 01/16/24 10:26 Dose: Not Given Documented By: ARPIT Non-Admin Reason: Patient Refused Calcium Carbonate (Calcium Carbonate 750 Mg Tab.Chew) 750 mg PO Q4H PRN PRN Reason: Heartburn Glucose (Glucose Gel 15 Gm Gel..Gram.) 15 gm PO Q15M PRN; Protocol PRN Reason: per Hypoglycemia Standing Ord. Heparin Sodium (Porcine) (Heparin Sodium,Porcine 5,000 Unit/Ml Vial) 5,000 unit SUBCUT Q12H [facility] Last Admin: 01/17/24 08:39 Dose: Not Given Documented By: KARLI Non-Admin Reason: Patient Refused Hydromorphone HCl (Hydromorphone Hcl 0.5 Mg/0.5 Ml Syringe) 0.5 mg IVPUSH Q4H PRN; Protocol PRN Reason: Pain, Severe (Pain Scale 7-10) Last Admin: 01/17/24 09:46 Dose: 0.5 mg Documented By: KARLI Dextrose (D10) 250 mls @ 750 mls/hr IV Q15M PRN; Protocol PRN Reason: per Hypoglycemia Standing Ord. Last Infusion: 01/16/24 11:11 Dose: Infused Documented By: NAY-RIVLA Piperacillin Sod/Tazobactam (Sod 2.25 gm/ Sodium Chloride) 50 mls @ 100 mls/hr IV Q8H [facility] Last Infusion: 01/17/24 11:02 Dose: Infused Documented By: KARLI Dextrose (D10) 1,000 mls @ 100 mls/hr IVCONT .Q10H [facility] Last Admin: 01/17/24 06:06 Dose: 100 mls/hr Documented By: TIFFANIE Insulin Human Lispro (Insulin Lispro 100 Unit/Ml 3 Ml Vial) 0 unit SUBCUT QIDACHS [facility]; Protocol Last Admin: 01/17/24 12:11 Dose: Not Given Documented By: KARLI Non-Admin Reason: No Insulin Coverage Magnesium Hydroxide (Milk Of Magnesia 30 Ml Oral.Susp) 30 ml PO DAILY PRN PRN Reason: Constipation Melatonin (Melatonin 3 Mg Tablet) 6 mg PO BEDTIME PRN PRN Reason: Insomnia Ondansetron HCl (Ondansetron Hcl 4 Mg/2 Ml Vial) 4 mg IVPUSH Q8H PRN PRN Reason: Nausea and Vomiting Last Admin: 01/17/24 09:46 Dose: 4 mg Documented By: KARLI Sodium Chloride (0.9 % Sodium Chloride Flush 3 Ml Syringe) 3 ml IVFLUSH QSHIFT [facility] Last Admin: 01/17/24 09:46 Dose: 3 ml Documented By: HO.GOODMA Labs 01/15/24 10:38 01/15/24 10:38 Labs: Laboratory Results - last 24 hr 01/16/24 01/16/24 01/16/24 11:08 13:51 15:38 POC Glucose 162 H 95 71 01/16/24 01/16/24 01/17/24 17:23 20:13 03:38 POC Glucose 75 136 H 110 01/17/24 01/17/24 01/17/24 07:06 09:53 11:50 POC Glucose 86 94 103 Microbiology Microbiology Results: Microbiology 01/15/24 10:38 Blood Culture - Preliminary Blood - Arterial Line Gram negative laurie 01/15/24 10:38 Blood Culture - Preliminary Blood - Arterial Line Gram negative laurie 01/15/24 20:34 Blood Culture - Preliminary Blood - Venous No growth after 24 hours. 01/15/24 20:34 Blood Culture - Preliminary Blood - Venous No growth after 24 hours. Assessment and Plan (1) Non-compliance with renal dialysis: Status: Acute (2) Decompensated heart failure: Status: Acute (3) Bacteremia: Status: Acute Plan 33-year-old female with pertinent history of ESRD on hemodialysis, 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 GNR Bacteremia GNR 2/2, taken from cath - speciation pending has previously grown pseudomonas and stenotrophomonas maltophilia continue IV Zosyn ID consult pending will likely need remove catheter and replace repeat cx pending Acute on chronic congestive heart failure with reduced ejection fraction with chronic hypoxia Due to noncompliance with hemodialysis. Given IV Lasix in the ER. patient had dialysis 01/14, RR called for unresponsiveness secondary to hypoglycemia, tx to ICU for hypotension, tx back to tele a few hours later had 3 hrs of HD on 01/15 per report nephrology following Hypertensive emergency in a patient with poorly controlled hypertension due to medication noncompliance Given IV labetalol in the ER. has not been getting blood pressure meds, BP stable for now ESRD on hemodialysis Missed 1 week of dialysis. nephrology following Prn-[id number]-xpdprvali diabetes mellitus with diabetic polyneuropathy/retinopathy with hypoglycemia Accu-Cheks Q4h due to hypoglycemia, likely secondary to bacteremia continue D10 IV cont Mood disorder Not on mood stabilizers CAD/cardiomyopathy On beta-mohamud. 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 DVT prophylaxis: Heparin Attending Dr. Weeks Full code Quality Stroke Does the patient have a stroke diagnosis?: No VTE Prior VTE?: No VTE Risk Level:: Medical - moderate - high VTE Device Contraindication: Treatment Not Indicated VTE Drug Contraindication: N/A - Med Ordered
[2024-01-17 13:16] LABS: Anion Gap 17 (12-20); Blood Urea Nitrogen 53 mg/dL (9-16); Calcium 7.7 mg/dL (8.4-10.2); Carbon Dioxide 22 mmol/L (22-29); Chloride 95 mmol/L (96-108); Creatinine Clr Calc Pharmacy 13.9; Estimated Glomerular Filt Rate 8; Glucose Random 121 mg/dL (60-115); Potassium 3.6 mmol/L (3.3-5.1); Sodium 130 mmol/L (135-145)
--- NOTE | 2024-01-17 13:16 | P.PNNP_ITS ---
Subjective Subjective Date of Service: 01/17/24 Interval history: seen and examined this morning follow up for bacteremia, CHF, hypoglycemia denies sob at this time refused lab work this morning Physical Exam 2 Vital Signs: Vital Signs: Last Vital Signs Temp 98.4 F 01/17/24 11:09 Pulse 80 01/17/24 11:09 Resp 20 01/17/24 11:09 BP 142/65 H 01/17/24 11:09 Pulse Ox 94 01/17/24 11:09 O2 Del Method Nasal Cannula 01/17/24 11:09 O2 Flow Rate 5 01/17/24 11:09 Oxygen Flow Rate 2 01/14/24 18:38 BMI result Body Mass Index 29.0 cvs; s1s2 Rs: cta Abd; soft Left ij pc Objective Data Labs 01/15/24 10:38 01/17/24 12:41 Labs: Laboratory Results - last 24 hr 01/16/24 01/16/24 01/16/24 11:08 13:51 15:38 POC Glucose 162 H 95 71 01/16/24 01/16/24 01/17/24 17:23 20:13 03:38 POC Glucose 75 136 H 110 01/17/24 01/17/24 01/17/24 07:06 09:53 11:50 POC Glucose 86 94 103 Microbiology Microbiology Results: Microbiology 01/15/24 10:38 Blood - Arterial Line Blood Culture - Preliminary Gram negative laurie 01/15/24 10:38 Blood - Arterial Line Blood Culture - Preliminary Gram negative laurie 01/15/24 20:34 Blood - Venous Blood Culture - Preliminary No growth after 24 hours. 01/15/24 20:34 Blood - Venous Blood Culture - Preliminary No growth after 24 hours. Procedures Date of Service Date of Service: 01/17/24 Assessment & Plan Assessment and plan (1) End stage chronic kidney disease: Status: Acute Plan ESRD: TTS; Nephrogenic anemia HTN- bp meds Non-compliance Left ij pc site- tender REC: HD per TTS scedule; meds as noted; epo as ordered calcitriol likely Line infection - will plan to dc line tomorrow and have a line holiday follow blood cultures drawn - if negative, can place a new line on sunday daily bmp discussed w team Time Spent With Patient Time: Total time managing care of this patient today ____ minutes. Progress Note: Quality Stroke Does the patient have a stroke diagnosis?: No
--- NOTE | 2024-01-17 13:20 | HO.WOUND ---
Wound Consult: Initial 33yr old female? admitted to [facility] on 01/14/24 - See progress notes and H&P for detailed history.? 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 Wound consult placed for Bilateral lower foot wounds.? ?? Right Plantar Diabetic Wound? - open clean pale pink moist wound bed - no induration no fluctance no odor noted - Iodosorb to keep dry and stable and allow for antimicrobial properties and break through biofilm.? Right Lateral Diabetic Wound? -? Diabetic Wound? - Resurfaced intact tissue Right Dorsal Diabetic Wound? - Resurfaced intact tissue Left Heel? - Diabetic Wound - moist soft necrotic slough noted - mild odor noted no induration no erythema and no fluctance noted at this time? -? Iodosorb to keep dry and stable and allow for antimicrobial properties and break through biofilm.? No fluctuance no induration no warmth noted - no s/s of source of infection noted.? The patient does express localized pain to left heel. Left TMA site - resurfaced healed? - no topical interventions needed at this time. Left Plantar Diabetic Wound? - dry dark wound bed callused edges? - ?Iodosorb to keep dry and stable and allow for antimicrobial properties and break through biofilm. No fluctuance no induration no warmth noted - no s/s of source of infection noted.? Coccyx - previous Pressure Injury healed and resurfaced - MASD noted at this time hyperpigmentation and maceration noted - skin intact Goals of Treatment: ? Off Load Pressure and barrier cream to protect from friction and moisture Open discussion with patient continue about compliance with care provided and recommended and benefits of allowing topical interventions to be completed to improve healing.? She reports understanding. Recommendations: 1. Turn and Reposition every 2 hours and as needed for patient comfort.? Use pillows or wedges to support off loading positions. 2. Off Load all bony prominences with use of pillows and heel boots if needed.? Apply Preventative foams where needed. ? 3. Monitor for incontinence and moisture control, use barrier creams when needed for prevention and treatment. 4. Provide adequate and supplemental nutrition.? 5. Order low air loss mattress. 6. When applicable maintain blood glucose levels per Providers order. 7. Left Foot? and Right Foot wounds? - Elevate heels off of bed surface with pillows.?Cleanse with saline, pat dry. ?Apply Iodosorb / Iodoflex to wound bed cover with gauze and tape. ?Change every other day.?? Iodoflex left at bedside. Note the Iodoflex will be applied brown and over the course of time as the Iodine is absorbed into the wound bed the color will change to yellow / cream signifying time to replace.??Iodoflex / Iodosorb is only available from wound care nurse. At time of discharge patient should switch to Durafiber to the wound bed and change every other day as well. 8. ?Sacrococcygeal area - Off Load Pressure - Cleanse with PH balance spray or wipes, pat dry. ?Apply thin layer of barrier cream twice daily. Re-consult wound care Nurse for wound deterioration or wound changes.
[2024-01-17 16:09] LABS: Glucose, Whole Blood 92 mg/dL (60-115)
--- NOTE | 2024-01-17 16:34 | P.CDIM_ITS ---
PROVIDER RESPONSE TEXT: To clarify, the appropriate diagnosis supported by the clinical indicators: Hyponatremia: has hyponatremia. should improve with HD QUERY TEXT: PHYSICIAN'S DOCUMENTATION REQUEST Date of Query: 01/17/2024 01:23 PM EST Patient Name: Shereen Taylor Admit Date: 01/15/2024 Dear Angela Ulloa [place], A review of the medical record indicates additional documentation may be needed. Please review below and update the documentation accordingly. Clinical Indicators: LABS: sodium 130 L fluids Based on the above, is there a diagnosis that correlates with these lab findings: Hyponatremia resolved, possible, probable, suspected etc. Labs indicate a diagnosis of (please specify) Other (explain) Clinically unable to determine (explain) Thank you, Betsey Metz, CCS, CDIS Use of terms such as suspected, likely, concern for, or probable (associated with a specific diagnosi s that is being evaluated, monitored, or treated as if it exists) are acceptable and can be coded in the inpatient se tting, when documented at the time of discharge. Please use your independent medical judgment in providing your response. THIS QUERY IS PART OF THE PERMANENT MEDICAL RECORD
[2024-01-17 19:20] VITALS: BP 180/79; PULSE 88; RESP 18; TEMP 36.4; O2SAT 100
[2024-01-17 19:45] LABS: Glucose, Whole Blood 89 mg/dL (60-115)
--- NOTE | 2024-01-17 22:53 | W.PM.IDCN ---
History of Present Illness Data of Consult Service Date: 01/16/24 Requesting physician: Tawny Taylor Primary Care Provider: Genevieve Casillas MD HPI Reason for consult: gram negative bacteremia She presents with shortness of breath for three days. She has gram negative rods 01/14 x 2. She went to [place] last week and stayed one week and didnt get dialysis. Review of Systems Review of Systems: Yes all other systems are reviewed and are negative PMFSH Past Medical History Medical History End stage chronic kidney disease Chronic kidney disease Anemia Chronic foot ulcer Plantar ulcer of left foot Major depressive disorder, single episode, severe ESRD (end stage renal disease) Non-compliance with renal dialysis Hypertensive urgency MDD (major depressive disorder), recurrent episode MDD (major depressive disorder) Renal failure Foot ulcer CKD (chronic kidney disease) Hypertension Diabetic foot Hyperkalemia Vomiting Renal failure Hypertension Migraine Chronic pain ESRD on dialysis Non-compliance with renal dialysis Hypertension End-stage renal disease (ESRD) Gastroparesis Diabetic foot ulcer associated with type 2 diabetes mellitus Hypertensive emergency Diabetes ESRD needing dialysis Cardiomyopathy HFrEF (heart failure with reduced ejection fraction) Metabolic acidosis delivery delivered Anemia in chronic kidney disease (CKD) CKD (chronic kidney disease) Headache, migraine Abnormal finding on echocardiogram Elevated troponin Chest pain Acute worsening of stage 3 chronic kidney disease Generalized edema Sepsis Cellulitis Pleural effusion CHF (congestive heart failure) (~06/07/22) Tachycardia Atypical chest pain Bone infection PAD (peripheral artery disease) Severe anemia Cellulitis and abscess of foot DM foot ulcer Osteomyelitis Asthma Depression with anxiety Diabetic retinopathy Type 2 diabetes mellitus with hyperglycemia, with long-term current use of insulin Blind right eye Diabetes Back pain Family History Family History Mother Coronary artery disease Myocardial infarction Stroke Diabetes mellitus Father Myocardial infarction Family history: reviewed and not pertinent Surgical History Surgical History Tubal ligation status Previous section Hx laparoscopic cholecystectomy Hx of surgical procedure (~09/11/23) 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 Social History Social History Household Members: Family Household Members Other:: Sister Housing: House Do you presently have visiting nurse or other home services: No Unable to assess alcohol history related to: Unknown Alcohol intake: never Comment: restraints Patient Tobacco Use Status: Never used Tobacco e-Cigarette/Vaping Use: Never Used Advance Directives Date on File: 09/04/23 service: No Current occupational status: unemployed and disabled Gender identity: Female Meds Allergies Allergy/AdvReac Type Severity Reaction Status Date / Time morphine [MORPHINE] Allergy Intermediate Itching Verified 01/14/24 18:40 azithromycin [From Zithromax] Allergy Hives Verified 01/14/24 18:40 gabapentin Allergy Facial Verified 01/14/24 18:40 Swelling tramadol Allergy Facial Verified 01/14/24 18:40 Swelling vancomycin Allergy Anaphylaxis Verified 01/14/24 18:40 Active Medications: Current Medications Acetaminophen (Acetaminophen 325 Mg Tablet) 650 mg PO Q6H PRN PRN Reason: Pain, Mild (Pain Scale 1-3), fever or headache Last Admin: 01/15/24 20:15 Dose: 650 mg Calcitriol (Calcitriol Oral Soln 0.25 Mcg/0.25 Ml Solution) 0.25 mcg PO MoWeFr@0900 [facility] Last Admin: 01/16/24 10:26 Dose: Not Given Calcium Carbonate (Calcium Carbonate 750 Mg Tab.Chew) 750 mg PO Q4H PRN PRN Reason: Heartburn Glucose (Glucose Gel 15 Gm Gel..Gram.) 15 gm PO Q15M PRN; Protocol PRN Reason: per Hypoglycemia Standing Ord. Heparin Sodium (Porcine) (Heparin Sodium,Porcine 5,000 Unit/Ml Vial) 5,000 unit SUBCUT Q12H [facility] Last Admin: 01/17/24 19:54 Dose: Not Given Hydromorphone HCl (Hydromorphone Hcl 0.5 Mg/0.5 Ml Syringe) 0.5 mg IVPUSH Q4H PRN; Protocol PRN Reason: Pain, Severe (Pain Scale 7-10) Last Admin: 01/17/24 22:47 Dose: 0.5 mg Dextrose (D10) 250 mls @ 750 mls/hr IV Q15M PRN; Protocol PRN Reason: per Hypoglycemia Standing Ord. Last Infusion: 01/16/24 11:11 Dose: Infused Piperacillin Sod/Tazobactam (Sod 2.25 gm/ Sodium Chloride) 50 mls @ 100 mls/hr IV Q8H [facility] Last Infusion: 01/17/24 19:32 Dose: Infused Dextrose (D10) 1,000 mls @ 100 mls/hr IVCONT .Q10H [facility] Last Infusion: 01/17/24 19:55 Dose: 0 mls/hr Insulin Human Lispro (Insulin Lispro 100 Unit/Ml 3 Ml Vial) 0 unit SUBCUT QIDACHS [facility]; Protocol Last Admin: 01/17/24 19:54 Dose: Not Given Magnesium Hydroxide (Milk Of Magnesia 30 Ml Oral.Susp) 30 ml PO DAILY PRN PRN Reason: Constipation Melatonin (Melatonin 3 Mg Tablet) 6 mg PO BEDTIME PRN PRN Reason: Insomnia Ondansetron HCl (Ondansetron Hcl 4 Mg/2 Ml Vial) 4 mg IVPUSH Q8H PRN PRN Reason: Nausea and Vomiting Last Admin: 01/17/24 14:21 Dose: 4 mg Sodium Chloride (0.9 % Sodium Chloride Flush 3 Ml Syringe) [facility] Last Admin: 01/17/24 22:47 Dose: 3 ml Home Medications ?Medication ?Instructions ?Recorded ?Confirmed ?Last Taken ?Type albuterol sulfate 90 mcg/actuation 2 puff inhalation Q6H PRN wheezing 01/15/24 01/15/24 Unknown History aerosol inhaler (Ventolin HFA) lidocaine 5 % topical patch 1 patch topical DAILY 01/15/24 01/15/24 Unknown History nitroglycerin 0.4 mg sublingual 0.4 mg sublingual DIRECTED PRN 01/15/24 01/15/24 Unknown History tablet Angina oxycodone 5 mg tablet 5 mg PO Q8H PRN pain 01/15/24 01/15/24 Unknown History Physical Exam Vital Signs: Vital Signs: Last Vital Signs Temp 97.5 F 01/17/24 19:20 Pulse 88 01/17/24 19:20 Resp 18 01/17/24 19:20 BP 180/79 H 01/17/24 19:20 Pulse Ox 100 01/17/24 19:20 O2 Del Method Nasal Cannula 01/17/24 19:20 O2 Flow Rate 5 01/17/24 19:20 Oxygen Flow Rate 2 01/14/24 18:38 BMI result Body Mass Index 29.0 Const: General: cooperative HEENT: Head: Yes normal to inspection Face and sinus: Yes normal facial exam Mouth: Normal oral and palatal mucosa present Teeth and gingiva: dentition normal Eyes: General: appearance normal, both eyes and all related structures Pupils: Equal, round and reactive pupils present Resp: Effort & Inspection: normal respiratory effort Cardio: Rate: regular rate Rhythm: regular rhythm GI: Palpation (GI): Soft to palpation and nontender : General: Yes no CVA tenderness Back/Spine/Pelvis: Back: no CVA tenderness Skin: General skin exam: no rashes or lesions noted Neuro: General: moves all extremities Cranial nerves: Yes Equal, round and reactive pupils present Extrem: General: Yes normal to inspection Psych: Appearance: grossly normal Results Labs 01/15/24 10:38 01/17/24 12:41 Labs: BMP 01/17/24 12:41 Sodium 130 L Potassium 3.6 Chloride 95 L Carbon Dioxide 22 BUN 53 H Creatinine 6.03 H* Calcium 7.7 L Microbiology Microbiology Results: Microbiology 01/15/24 20:34 Blood - Venous Blood Culture - Preliminary No growth after 48 hours. 01/15/24 20:34 Blood - Venous Blood Culture - Preliminary No growth after 48 hours. 01/15/24 10:38 Blood - Arterial Line Blood Culture - Preliminary Gram negative laurie 01/15/24 10:38 Blood - Arterial Line Blood Culture - Preliminary Gram negative laurie Assessment and Plan (1) End stage chronic kidney disease: Status: Acute (2) Non-compliance with renal dialysis: Status: Acute (3) Bacteremia: Status: Acute Plan She has bacteremia,possible Pseudomonas as before. Scabs on legs look old and no cellulitis. Would continue Zosyn Await cultures. Remove catheter if persistent bacteremia.
[2024-01-17 23:13] VITALS: BP 136/73; PULSE 84; RESP 18; TEMP 36.3; O2SAT 95
[2024-01-18] VITALS (15 sets, daily range): BP systolic 148–188; BP diastolic 69–108; PULSE 78–83; RESP 11–18; TEMP 36.2–36.4; O2SAT 96–100; BMI 29.2
[2024-01-18 00:20] LABS: Glucose, Whole Blood 84 mg/dL (60-115)
[2024-01-18] MEDS: HYDROmorphone HCl 0.5 MG/0.5 ML SYRINGE IVPUSH ×3 (02:46→12:44)
[2024-01-18] MEDS: Piperacillin Sodium/Tazobactam 2.25 GM in 0.9 % Sodium Chloride 50 ML IV ×3 (02:46→18:33)
[2024-01-18] MEDS: ondansetron HCL 4 MG/2 ML VIAL IVPUSH ×3 (02:53→20:13)
[2024-01-18] MEDS: Glucose Gel 15 GM GEL..GRAM. PO (03:40)
[2024-01-18] MEDS: Dextrose 10 % 1,000 ML 100 ML IVCONT (04:10)
[2024-01-18 04:14] LABS: Glucose, Whole Blood 66 mg/dL (60-115)
[2024-01-18 04:14] LABS: Glucose, Whole Blood 67 mg/dL (60-115)
[2024-01-18 04:47] LABS: Glucose, Whole Blood 90 mg/dL (60-115)
--- NOTE | 2024-01-18 06:06 | PC.NURSE ---
Pt AOx3, able to make needs known. Assumed care of pt approx 2300. Report from previous RN was that pt was refusing IVF d/t IV pump beeping d/t pt bending her arm where IV is located. Previous RN agreed to turn off IVF if pt agreed to increase her PO intake, pt agreed, MD was made aware that IVF were turned off. Pt's POC at approx 0330 66, pt would only agree to glucose gel, administered, upon recheck pt's POC 67. This RN explained to pt IVF needed to be restarted d/t hypoglycemia as she is not taking enough PO. Pt reluctantly allowed this RN to restart the IVF, MD made aware. Recheck of POC was 90. Pt so far has refused recheck of POC. Bed alarm on, call moore within reach.
[2024-01-18] MEDS: 0.9 % Sodium Chloride Flush 3 ML SYRINGE IVFLUSH (07:40)
[2024-01-18 08:20] LABS: Glucose, Whole Blood 85 mg/dL (60-115)
--- NOTE | 2024-01-18 10:47 | MHC.CM.PN ---
Per ROUNDS discussion,Patient is not yet medically cleared for dc (D10 Drip); home is the goal and CM will continue to follow.
[2024-01-18 11:23] LABS: Glucose, Whole Blood 134 mg/dL (60-115)
--- NOTE | 2024-01-18 11:32 | PC.NURSE ---
edwards cath removed at 11:20. Pt tolerated well; due to void by 17:20
[2024-01-18] MEDS: fentaNYL citrate/PF 100 MCG/2 ML VIAL 50 MCG IVPUSH (13:30)
--- NOTE | 2024-01-18 14:08 | PCN2_ITS ---
Brief Operative Note Date of procedure: 01/18/24 Pre-op diagnosis: Positive blood cultures from Permacath, negative blood cultu res. Post-op diagnosis: same Procedure: Left IJ 27 cm Permacath exchanged under FL. Tip in right atrium. Ok for use. No immediate complications.
--- NOTE | 2024-01-18 14:19 | HO.PM.IMPN ---
Subjective Subjective Date of Service: 01/18/24 Interval History: Seen and examined this morning Follow-up for line infection, hypoglycemia Reports ongoing decreased p.o. intake. denies abdominal pain No overnight events Review of Systems Review of Systems: Yes all other systems are reviewed and are negative Constitutional Constitutional: Denies chills and Denies fever(s) Cardiovascular Cardiovascular: Denies chest pain Gastrointestinal Gastrointestinal: Denies abdominal pain, Reports nausea and Denies vomiting Physical Exam Vital Signs: Vital Signs: Last Vital Signs Temp 97.2 F 01/18/24 11:28 Pulse 78 01/18/24 13:37 Resp 12 01/18/24 13:37 BP 173/104 H 01/18/24 13:37 Pulse Ox 98 01/18/24 13:37 O2 Del Method Room Air 01/18/24 13:37 O2 Flow Rate 0 01/18/24 13:37 Oxygen Flow Rate 2 01/14/24 18:38 BMI result Body Mass Index 29.2 Const: General: comfortable, no acute distress, alert and awake Nutritional Appearance: average body habitus Orientation/consciousness: patient oriented x3 Resp: Effort & Inspection: normal respiratory effort, able to speak in complete sentences, no respiratory distress and no use of accessory muscles Cardio: Rate: regular rate GI: Inspection: No distended Palpation (GI): Soft to palpation and nontender Skin: Other: b/l tma; dressing c/d/i Neuro: General: patient oriented x3, moves all extremities and CN's II-XI intact bilaterally Extrem: Other: 1+edema b/l legs Objective Data Active Medications Acetaminophen (Acetaminophen 325 Mg Tablet) 650 mg PO Q6H PRN PRN Reason: Pain, Mild (Pain Scale 1-3), fever or headache Last Admin: 01/15/24 20:15 Dose: 650 mg Documented By: MONTEZ Calcitriol (Calcitriol Oral Soln 0.25 Mcg/0.25 Ml Solution) 0.25 mcg PO MoWeFr@0900 ON LICENSE OF [facility] Last Admin: 01/18/24 08:07 Dose: Not Given Documented By: YOLIS Non-Admin Reason: Patient Refused Calcium Carbonate (Calcium Carbonate 750 Mg Tab.Chew) 750 mg PO Q4H PRN PRN Reason: Heartburn Glucose (Glucose Gel 15 Gm Gel..Gram.) 15 gm PO Q15M PRN; Protocol PRN Reason: per Hypoglycemia Standing Ord. Last Admin: 01/18/24 03:40 Dose: 15 gm Documented By: TIFFANIE Heparin Sodium (Porcine) (Heparin Sodium,Porcine 5,000 Unit/Ml Vial) 5,000 unit SUBCUT Q12H ON LICENSE OF [facility] Last Admin: 01/18/24 08:07 Dose: Not Given Documented By: YOLIS Non-Admin Reason: Patient Refused Hydromorphone HCl (Hydromorphone Hcl 0.5 Mg/0.5 Ml Syringe) 0.5 mg IVPUSH Q4H PRN; Protocol PRN Reason: Pain, Severe (Pain Scale 7-10) Last Admin: 01/18/24 12:44 Dose: 0.5 mg Documented By: YOLIS Dextrose (D10) 250 mls @ 750 mls/hr IV Q15M PRN; Protocol PRN Reason: per Hypoglycemia Standing Ord. Last Infusion: 01/16/24 11:11 Dose: Infused Documented By: ARPIT Piperacillin Sod/Tazobactam (Sod 2.25 gm/ Sodium Chloride) 50 mls @ 100 mls/hr IV Q8H ON LICENSE OF [facility] Last Infusion: 01/18/24 11:47 Dose: Infused Documented By: YOLIS Dextrose (D10) 1,000 mls @ 75 mls/hr IVCONT .[id number] ON LICENSE OF [facility] Last Infusion: 01/18/24 11:14 Dose: 75 mls/hr Documented By: YOLIS Insulin Human Lispro (Insulin Lispro 100 Unit/Ml 3 Ml Vial) 0 unit SUBCUT QIDACHS ON LICENSE OF [facility]; Protocol Last Admin: 01/18/24 11:47 Dose: Not Given Documented By: YOLIS Non-Admin Reason: No Insulin Coverage Magnesium Hydroxide (Milk Of Magnesia 30 Ml Oral.Susp) 30 ml PO DAILY PRN PRN Reason: Constipation Melatonin (Melatonin 3 Mg Tablet) 6 mg PO BEDTIME PRN PRN Reason: Insomnia Ondansetron HCl (Ondansetron Hcl 4 Mg/2 Ml Vial) 4 mg IVPUSH Q8H PRN PRN Reason: Nausea and Vomiting Last Admin: 01/18/24 11:14 Dose: 4 mg Documented By: YOLIS Sodium Chloride (0.9 % Sodium Chloride Flush 3 Ml Syringe) 3 ml IVFLUSH QSHIFT ON LICENSE OF [facility] Last Admin: 01/18/24 07:40 Dose: 3 ml Documented By: FOSTEKR Labs 01/15/24 10:38 01/17/24 12:41 Labs: Laboratory Results - last 24 hr 01/17/24 01/17/24 01/18/24 15:58 19:33 00:16 POC Glucose 92 89 84 01/18/24 01/18/24 01/18/24 03:34 04:07 04:43 POC Glucose 66 67 90 01/18/24 01/18/24 08:15 11:19 POC Glucose 85 134 H Microbiology Microbiology Results: Microbiology 01/15/24 10:38 Blood Culture - Final Blood - Arterial Line Stenotrophomonas maltophilia Acinetobacter baumannii 01/15/24 10:38 Blood Culture - Final Blood - Arterial Line Stenotrophomonas maltophilia 01/15/24 20:34 Blood Culture - Preliminary Blood - Venous No growth after 48 hours. 01/15/24 20:34 Blood Culture - Preliminary Blood - Venous No growth after 48 hours. 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 [facility] stenotrophomonas maltophilia and acinetobacter peripheral blood cultures negative continue IV Zosyn for now, plan to discharge with 4 weeks of po bactrim ID following plan for catheter changeover by IR likely today Acute on chronic congestive heart failure with reduced ejection fraction with chronic hypoxia Due to noncompliance with hemodialysis. Given IV Lasix in the ER. patient had dialysis 01/14, RR called for unresponsiveness secondary to hypoglycemia, tx to ICU for hypotension, tx back to tele a few hours later last HD 01/16 nephrology following Hypertensive emergency in a patient with poorly controlled hypertension due to medication noncompliance Given IV labetalol in the ER. has not been getting blood pressure meds, BP trending up will resume hydralazine resume coreg as bp allows ESRD on hemodialysis Missed 1 week of dialysis. nephrology following HD as scheduled Loc-[id number] diabetes mellitus with diabetic polyneuropathy/retinopathy with hypoglycemia Accu-Cheks Q4h due to hypoglycemia, likely secondary to bacteremia continue D10 IV cont, will attempt to start weaning drip continues with decreased po intake - will consult GI Mood disorder Not on mood stabilizers CAD/cardiomyopathy On beta-mohamud. 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 DVT prophylaxis: Heparin Attending Dr. Weeks Full code Quality Stroke Does the patient have a stroke diagnosis?: No VTE Prior VTE?: No VTE Risk Level:: Medical - moderate - high VTE Device Contraindication: Treatment Not Indicated VTE Drug Contraindication: N/A - Med Ordered
--- NOTE | 2024-01-18 14:42 | P.PNNP_ITS ---
Subjective Subjective Date of Service: 01/18/24 Interval history: Seen and examined this morning Follow-up for line infection, hypoglycemia Reports ongoing decreased p.o. intake. denies abdominal pain No overnight events Physical Exam 2 Vital Signs: Vital Signs: Last Vital Signs Temp 97.2 F 01/18/24 11:28 Pulse 78 01/18/24 13:37 Resp 12 01/18/24 13:37 BP 173/104 H 01/18/24 13:37 Pulse Ox 98 01/18/24 13:37 O2 Del Method Room Air 01/18/24 13:37 O2 Flow Rate 0 01/18/24 13:37 Oxygen Flow Rate 2 01/14/24 18:38 BMI result Body Mass Index 29.2 cvs: s1s2 Rs; cta abd: soft Left Ij pc b/l tma; dressing Objective Data Labs 01/15/24 10:38 01/17/24 12:41 Labs: Laboratory Results - last 24 hr 01/17/24 01/17/24 01/18/24 15:58 19:33 00:16 POC Glucose 92 89 84 01/18/24 01/18/24 01/18/24 03:34 04:07 04:43 POC Glucose 66 67 90 01/18/24 01/18/24 08:15 11:19 POC Glucose 85 134 H Microbiology Microbiology Results: Microbiology 01/15/24 10:38 Blood - Arterial Line Blood Culture - Final Stenotrophomonas maltophilia Acinetobacter baumannii 01/15/24 10:38 Blood - Arterial Line Blood Culture - Final Stenotrophomonas maltophilia 01/15/24 20:34 Blood - Venous Blood Culture - Preliminary No growth after 48 hours. 01/15/24 20:34 Blood - Venous Blood Culture - Preliminary No growth after 48 hours. Procedures Date of Service Date of Service: 01/18/24 Assessment & Plan Assessment and plan (1) End stage chronic kidney disease: Status: Acute Assessment and Plan: ESRD: TTS; Nephrogenic anemia HTN- bp meds Non-compliance Left ij pc - now replaced REC: HD per TTS scedule; meds as noted; epo as ordered calcitriol likely Line infection- however rpt cx neg- per dw ID - nowchanged line over guide wire follow blood cultures drawn - daily bmp discussed w team Time Spent With Patient Time: Total time managing care of this patient today ____ minutes. Progress Note: Quality Stroke Does the patient have a stroke diagnosis?: No
[2024-01-18 15:57] LABS: Glucose, Whole Blood 73 mg/dL (60-115)
--- NOTE | 2024-01-18 16:35 | PM.GICN ---
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 This is hospital day 5. In the interim she has been found to have permacath related bacteremia that was exchanged just today. Gastroenterology has been consulted for evaluation of abd pain, N,V. Pt was evaluated at bedside. Does not report any abd pain, nausea or vomiting. No difficulty swallowing. Reports sometimes when coughs too much can have a gagging sensation. Requested this provider to let her rest as she has no GI issues to report and had an exhausting day. This is incongruent with bedside nursing report. From review of chart, pt has hx of noncompliance and disengaging behaviour with medical providers. She was seen by GI last year for similar complaints and had declined EGD. Review of Systems Review of Systems: Yes Other (limited ROS obtained ) [facility] Past Medical History Medical History (Updated 01/21/24 @ 10:50 by Veronica Arredondo MD) Gastroparesis End stage chronic kidney disease Chronic kidney disease Anemia Chronic foot ulcer Plantar ulcer of left foot Major depressive disorder, single episode, severe ESRD (end stage renal disease) Non-compliance with renal dialysis Hypertensive urgency MDD (major depressive disorder), recurrent episode MDD (major depressive disorder) Renal failure Foot ulcer CKD (chronic kidney disease) Hypertension Diabetic foot Hyperkalemia Vomiting Renal failure Hypertension Migraine Chronic pain ESRD on dialysis Non-compliance with renal dialysis Hypertension End-stage renal disease (ESRD) Diabetic foot ulcer associated with type 2 diabetes mellitus Hypertensive emergency Diabetes ESRD needing dialysis Cardiomyopathy HFrEF (heart failure with reduced ejection fraction) Metabolic acidosis delivery delivered Anemia in chronic kidney disease (CKD) CKD (chronic kidney disease) Headache, migraine Abnormal finding on echocardiogram Elevated troponin Chest pain Acute worsening of stage 3 chronic kidney disease Generalized edema Sepsis Cellulitis Pleural effusion CHF (congestive heart failure) (~04/12/23) Tachycardia Atypical chest pain Bone infection PAD (peripheral artery disease) Severe anemia Cellulitis and abscess of foot DM foot ulcer Osteomyelitis Asthma Depression with anxiety Diabetic retinopathy Type 2 diabetes mellitus with hyperglycemia, with long-term current use of insulin Blind right eye Diabetes Back pain Family History Family History Mother Coronary artery disease Myocardial infarction Stroke Diabetes mellitus Father Myocardial infarction Family history: reviewed and not pertinent Surgical History Surgical History Tubal ligation status Previous section Hx laparoscopic cholecystectomy Hx of surgical procedure (~09/11/23) 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 Social History Social History Household Members: Family Household Members Other:: Sister Housing: House Do you presently have visiting nurse or other home services: No Unable to assess alcohol history related to: Unknown Alcohol intake: never Comment: Remain w/ pt on commode. Patient Tobacco Use Status: Never used Tobacco e-Cigarette/Vaping Use: Never Used Advance Directives Date on File: 09/04/23 service: No Current occupational status: unemployed and disabled Gender identity: Female Meds Allergies Allergy/AdvReac Type Severity Reaction Status Date / Time morphine [MORPHINE] Allergy Intermediate Itching Verified 01/14/24 18:40 azithromycin [From Zithromax] Allergy Hives Verified 01/14/24 18:40 gabapentin Allergy Facial Verified 01/14/24 18:40 Swelling tramadol Allergy Facial Verified 01/14/24 18:40 Swelling vancomycin Allergy Anaphylaxis Verified 01/14/24 18:40 Active Medications: Current Medications Acetaminophen (Acetaminophen 325 Mg Tablet) 650 mg PO Q6H PRN PRN Reason: Pain, Mild (Pain Scale 1-3), fever or headache Last Admin: 01/15/24 20:15 Dose: 650 mg Calcitriol (Calcitriol Oral Soln 0.25 Mcg/0.25 Ml Solution) 0.25 mcg PO MoWeFr@0900 [facility] Last Admin: 01/18/24 08:07 Dose: Not Given Calcium Carbonate (Calcium Carbonate 750 Mg Tab.Chew) 750 mg PO Q4H PRN PRN Reason: Heartburn Glucose (Glucose Gel 15 Gm Gel..Gram.) 15 gm PO Q15M PRN; Protocol PRN Reason: per Hypoglycemia Standing Ord. Last Admin: 01/18/24 03:40 Dose: 15 gm Heparin Sodium (Porcine) (Heparin Sodium,Porcine 5,000 Unit/Ml Vial) 5,000 unit SUBCUT Q12H [facility] Last Admin: 01/18/24 08:07 Dose: Not Given Hydralazine HCl (Hydralazine Hcl 50 Mg Tablet) 50 mg PO TID [facility]; Protocol Last Admin: 01/18/24 15:26 Dose: Not Given Hydromorphone HCl (Hydromorphone Hcl 0.5 Mg/0.5 Ml Syringe) 0.5 mg IVPUSH Q4H PRN; Protocol PRN Reason: Pain, Severe (Pain Scale 7-10) Last Admin: 01/18/24 12:44 Dose: 0.5 mg Dextrose (D10) 250 mls @ 750 mls/hr IV Q15M PRN; Protocol PRN Reason: per Hypoglycemia Standing Ord. Last Infusion: 01/16/24 11:11 Dose: Infused Piperacillin Sod/Tazobactam (Sod 2.25 gm/ Sodium Chloride) 50 mls @ 100 mls/hr IV Q8H [facility] Last Infusion: 01/18/24 11:47 Dose: Infused Dextrose (D10) 1,000 mls @ 75 mls/hr IVCONT .[id number] [facility] Last Infusion: 01/18/24 11:14 Dose: 75 mls/hr Insulin Human Lispro (Insulin Lispro 100 Unit/Ml 3 Ml Vial) 0 unit SUBCUT QIDACHS [facility]; Protocol Last Admin: 01/18/24 11:47 Dose: Not Given Lidocaine (Lidocaine 4 % Patch Adh..Patch) 1 patch TRANSDERMA DAILY [facility] Magnesium Hydroxide (Milk Of Magnesia 30 Ml Oral.Susp) 30 ml PO DAILY PRN PRN Reason: Constipation Melatonin (Melatonin 3 Mg Tablet) 6 mg PO BEDTIME PRN PRN Reason: Insomnia Ondansetron HCl (Ondansetron Hcl 4 Mg/2 Ml Vial) 4 mg IVPUSH Q8H PRN PRN Reason: Nausea and Vomiting Last Admin: 01/18/24 11:14 Dose: 4 mg Sodium Chloride (0.9 % Sodium Chloride Flush 3 Ml Syringe) 3 ml IVFLUSH QSHIFT [facility] Last Admin: 01/18/24 07:40 Dose: 3 ml Home Medications ?Medication ?Instructions ?Recorded ?Confirmed ?Last Taken ?Type albuterol sulfate 90 mcg/actuation 2 puff inhalation Q6H PRN wheezing 01/15/24 01/15/24 Unknown History aerosol inhaler (Ventolin HFA) lidocaine 5 % topical patch 1 patch topical DAILY 01/15/24 01/15/24 Unknown History nitroglycerin 0.4 mg sublingual 0.4 mg sublingual DIRECTED PRN 01/15/24 01/15/24 Unknown History tablet Angina oxycodone 5 mg tablet 5 mg PO Q8H PRN pain 01/15/24 01/15/24 Unknown History Physical Exam Vital Signs: Vital Signs: Last Vital Signs Temp 97.3 F 01/18/24 16:00 Pulse 81 01/18/24 16:00 Resp 18 01/18/24 16:00 BP 180/98 H 01/18/24 16:00 Pulse Ox 100 01/18/24 16:00 O2 Del Method Room Air 01/18/24 16:00 O2 Flow Rate 0 01/18/24 13:37 Oxygen Flow Rate 2 01/14/24 18:38 BMI result Body Mass Index 29.2 Young female Laying in NAD legally blind abd soft, no wincing on palpation mild pitting edema, b/l TMA Results Labs 01/20/24 11:58 01/20/24 11:58 Microbiology Microbiology Results: Microbiology 01/15/24 10:38 Blood - Arterial Line Blood Culture - Final Stenotrophomonas maltophilia Acinetobacter baumannii 01/15/24 10:38 Blood - Arterial Line Blood Culture - Final Stenotrophomonas maltophilia 01/15/24 20:34 Blood - Venous Blood Culture - Preliminary No growth after 48 hours. 01/15/24 20:34 Blood - Venous Blood Culture - Preliminary No growth after 48 hours. Assessment and Plan (1) Bacteremia: Status: Acute (2) Anemia: Status: Acute (3) Medical non-compliance: Status: Acute (4) Gastroparesis: Status: Acute Plan Pt with prev documented hx of gastroparesis with medical team noting abd discomfort and significant N/V. However pt denies any of the above on bedside assessment and declines any further GI evaluation at this time. If has clinically significant N/V, may need capacity assessment to allow further evaluation and management. Procedures Date of Service Date of Service: 01/21/24
[2024-01-18 20:03] LABS: Glucose, Whole Blood 62 mg/dL (60-115)
[2024-01-18 21:29] LABS: Glucose, Whole Blood 102 mg/dL (60-115)
--- NOTE | 2024-01-18 23:07 | P.PNID_ITS ---
Subjective Subjective Date of Service: 01/18/24 Critical Care Time (minutes): 15 Comment: She has no complaints Objective Data Labs 01/15/24 10:38 01/17/24 12:41 Labs: Laboratory Results - last 24 hr 01/18/24 01/18/24 01/18/24 00:16 03:34 04:07 POC Glucose 84 66 67 01/18/24 01/18/24 01/18/24 04:43 08:15 11:19 POC Glucose 90 85 134 H 01/18/24 01/18/24 01/18/24 15:30 19:59 21:25 POC Glucose 73 62 102 Microbiology Microbiology Results: Microbiology 01/15/24 10:38 Blood - Arterial Line Blood Culture - Final Stenotrophomonas maltophilia Acinetobacter baumannii 01/15/24 10:38 Blood - Arterial Line Blood Culture - Final Stenotrophomonas maltophilia 01/15/24 20:34 Blood - Venous Blood Culture - Preliminary No growth after 48 hours. 01/15/24 20:34 Blood - Venous Blood Culture - Preliminary No growth after 48 hours. Physical Exam 2 Vital Signs: Vital Signs: Last Vital Signs Temp 97.4 F 01/18/24 20:00 Pulse 83 01/18/24 20:00 Resp 18 01/18/24 20:00 BP 188/103 H 01/18/24 20:00 Pulse Ox 100 01/18/24 20:00 O2 Del Method Nasal Cannula 01/18/24 20:00 O2 Flow Rate 5 01/18/24 20:00 Oxygen Flow Rate 2 01/14/24 18:38 BMI result Body Mass Index 29.2 Const: General: cooperative Resp: Effort & Inspection: normal respiratory effort Extrem: Other: no change Assessment and Plan Assessment and plan (1) End stage chronic kidney disease: Status: Acute Assessment and Plan: She can switch to po Bactrim for a month. (2) Chronic foot ulcer: Status: Acute Time Spent With Patient Time: Total time managing care of this patient today ____ minutes.
[2024-01-18 23:38] LABS: Glucose, Whole Blood 68 mg/dL (60-115)
[2024-01-19] VITALS (10 sets, daily range): BP systolic 158–188; BP diastolic 72–108; PULSE 73–84; RESP 16–20; TEMP 36.3–36.7; O2SAT 96–100; BMI 29.0
[2024-01-19] MEDS: Labetalol HCL 100 MG/20 ML VIAL 10 MG IVPUSH (00:14)
[2024-01-19] MEDS: Dextrose 10 % 250 ML 750 ML IV ×3 (00:24→08:29)
[2024-01-19] MEDS: 0.9 % Sodium Chloride Flush 3 ML SYRINGE IVFLUSH ×3 (00:25→20:02)
[2024-01-19] MEDS: Piperacillin Sodium/Tazobactam 2.25 GM in 0.9 % Sodium Chloride 50 ML IV ×3 (03:36→18:27)
[2024-01-19 03:37] LABS: Glucose, Whole Blood 69 mg/dL (60-115)
--- NOTE | 2024-01-19 04:00 | PC.NURSE ---
BP 182/108,188/[address] BATISTA EACH TIME.ORDERS GIVEN FOR IV LABETOLOL EACH TIME.PT REFUSED RECHECK OF BP AFTER MED GIVEN.
[2024-01-19] MEDS: Labetalol HCL 100 MG/20 ML VIAL 20 MG IVPUSH (05:14)
[2024-01-19 07:54] LABS: Glucose, Whole Blood 65 mg/dL (60-115)
[2024-01-19] MEDS: hydrALAZINE HCl 50 MG TABLET PO (08:13)
[2024-01-19] MEDS: Lidocaine 4 % Patch ADH..PATCH 1 PATCH TRANSDERMA (08:19)
--- NOTE | 2024-01-19 10:10 | P.PNIM_ITS ---
Subjective Subjective Date of Service: 01/19/24 Interval History: Seen and examined this morning Follow-up for line infection, hypoglycemia Reports ongoing decreased p.o. intake. denies abdominal pain No overnight events Review of Systems Review of Systems: Yes all other systems are reviewed and are negative Constitutional Constitutional: Denies chills and Denies fever(s) Cardiovascular Cardiovascular: Denies chest pain Gastrointestinal Gastrointestinal: Denies abdominal pain, Reports nausea and Denies vomiting Physical Exam 2 Vital Signs: Vital Signs: Last Vital Signs Temp 98.0 F 01/19/24 08:00 Pulse 84 01/19/24 08:00 Resp 20 01/19/24 08:00 BP 158/78 H 01/19/24 08:00 Pulse Ox 99 01/19/24 08:00 O2 Del Method Nasal Cannula 01/19/24 08:00 O2 Flow Rate 2 01/19/24 08:00 Oxygen Flow Rate 2 01/14/24 18:38 BMI result Body Mass Index 29.0 Appearing in no acute distress, blind lung sounds are clear to auscultation heart regular rate rhythm, clear S1, S2 positive bowel sounds, abdomen is soft, nontender neuro patient is alert x3, no focal deficits bilateral TMA Objective Data Active Medications Acetaminophen (Acetaminophen 325 Mg Tablet) 650 mg PO Q6H PRN PRN Reason: Pain, Mild (Pain Scale 1-3), fever or headache Last Admin: 01/15/24 20:15 Dose: 650 mg Documented By: MONTEZ Calcitriol (Calcitriol Oral Soln 0.25 Mcg/0.25 Ml Solution) 0.25 mcg PO MoWeFr@0900 [facility] Last Admin: 01/18/24 08:07 Dose: Not Given Documented By: YOLIS Non-Admin Reason: Patient Refused Calcium Carbonate (Calcium Carbonate 750 Mg Tab.Chew) 750 mg PO Q4H PRN PRN Reason: Heartburn Glucose (Glucose Gel 15 Gm Gel..Gram.) 15 gm PO Q15M PRN; Protocol PRN Reason: per Hypoglycemia Standing Ord. Last Admin: 01/18/24 03:40 Dose: 15 gm Documented By: TIFFANIE Heparin Sodium (Porcine) (Heparin Sodium,Porcine 5,000 Unit/Ml Vial) 5,000 unit SUBCUT Q12H [facility] Last Admin: 01/19/24 08:36 Dose: Not Given Documented By: YUE Non-Admin Reason: Patient Refused Hydralazine HCl (Hydralazine Hcl 50 Mg Tablet) 50 mg PO TID [facility]; Protocol Last Admin: 01/19/24 08:13 Dose: 50 mg Documented By: YUE Dextrose (D10) 250 mls @ 750 mls/hr IV Q15M PRN; Protocol PRN Reason: per Hypoglycemia Standing Ord. Last Infusion: 01/19/24 09:24 Dose: Infused Documented By: YUE Piperacillin Sod/Tazobactam (Sod 2.25 gm/ Sodium Chloride) 50 mls @ 100 mls/hr IV Q8H [facility] Last Infusion: 01/19/24 04:11 Dose: Infused Documented By: JONATHAN Insulin Human Lispro (Insulin Lispro 100 Unit/Ml 3 Ml Vial) 0 unit SUBCUT QIDACHS [facility]; Protocol Last Admin: 01/19/24 08:03 Dose: Not Given Documented By: YUE Non-Admin Reason: No Insulin Coverage Lidocaine (Lidocaine 4 % Patch Adh..Patch) 1 patch TRANSDERMA DAILY [facility] Last Admin: 01/19/24 08:19 Dose: 1 patch Documented By: YUE Magnesium Hydroxide (Milk Of Magnesia 30 Ml Oral.Susp) 30 ml PO DAILY PRN PRN Reason: Constipation Melatonin (Melatonin 3 Mg Tablet) 6 mg PO BEDTIME PRN PRN Reason: Insomnia Ondansetron HCl (Ondansetron Hcl 4 Mg/2 Ml Vial) 4 mg IVPUSH Q8H PRN PRN Reason: Nausea and Vomiting Last Admin: 01/18/24 20:13 Dose: 4 mg Documented By: MONTEZ Comments: Nausea. Oxycodone HCl (Oxycodone Hcl Immed Release 5 Mg Tablet) 5 mg PO Q6H PRN PRN Reason: Pain, Severe (Pain Scale 7-10) Sodium Chloride (0.9 % Sodium Chloride Flush 3 Ml Syringe) 3 ml IVFLUSH QSHIFT [facility] Last Admin: 01/19/24 08:34 Dose: 3 ml Documented By: YUE Labs 01/15/24 10:38 01/17/24 12:41 Labs: Laboratory Results - last 24 hr 01/18/24 01/18/24 01/18/24 11:19 15:30 19:59 POC Glucose 134 H 73 62 01/18/24 01/18/24 01/19/24 21:25 23:32 03:32 POC Glucose 102 68 69 01/19/24 07:47 POC Glucose 65 Microbiology Microbiology Results: Microbiology 01/15/24 10:38 Blood Culture - Final Blood - Arterial Line Stenotrophomonas maltophilia Acinetobacter baumannii 01/15/24 10:38 Blood Culture - Final Blood - Arterial Line Stenotrophomonas maltophilia Assessment and Plan (1) End stage chronic kidney disease: Status: Acute (2) Non-compliance with renal dialysis: Status: Acute (3) Decompensated heart failure: Status: Acute Plan 33-year-old female with pertinent history of ESRD on hemodialysis, 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 Central line bloodstream infection blood cultures from [facility] growing stenotrophomonas maltophilia and acinetobacter peripheral blood cultures negative continue IV Zosyn for now, plan to discharge with 4 weeks of po bactrim ID following s/p catheter changeover 01/17 Acute on chronic congestive heart failure with reduced ejection fraction with chronic hypoxia Due to noncompliance with hemodialysis. Given IV Lasix in the ER. patient had dialysis 01/14, RR called for unresponsiveness secondary to hypoglycemia, tx to ICU for hypotension, tx back to tele a few hours later last HD 01/16 nephrology following Hypertensive emergency in a patient with poorly controlled hypertension due to medication noncompliance Given IV labetalol in the ER. has not been getting blood pressure meds, BP trending up will resume hydralazine resume coreg ESRD on hemodialysis Missed 1 week of dialysis prior to admission . nephrology following HD as scheduled [id number] diabetes mellitus with diabetic polyneuropathy/retinopathy with hypoglycemia Accu-Cheks Q4h due to hypoglycemia, likely secondary to bacteremia s/p D10 IV continues with decreased po intake Mood disorder Not on mood stabilizers CAD/cardiomyopathy On beta-mohamud. 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 DVT prophylaxis: Heparin Attending Dr. Mlapah Full code Quality Stroke Does the patient have a stroke diagnosis?: No VTE Prior VTE?: No VTE Risk Level:: Medical - moderate - high VTE Device Contraindication: Treatment Not Indicated VTE Drug Contraindication: N/A - Med Ordered
[2024-01-19 11:57] LABS: Glucose, Whole Blood 79 mg/dL (60-115)
[2024-01-19] MEDS: HYDROmorphone HCl 1 MG/ML SYRINGE IVPUSH ×2 (15:06→22:08)
[2024-01-19] MEDS: ondansetron HCL 4 MG/2 ML VIAL IVPUSH (15:23)
[2024-01-19 16:13] LABS: Glucose, Whole Blood 83 mg/dL (60-115)
--- NOTE | 2024-01-19 16:44 | P.CNPS_ITS ---
History of Present Illness Date of Service: 01/19/24 Chief Complaint: Dyspnea Reason for Consult: Not eating, and refusing care- Requesting physician: Angela Ulloa Discussed with referring provider: Yes (with nursing and with covering hospitalist today) Sources of Information: patient interviewed and chart reviewed Additional Sources of Information: cover nurse this afternoon HPI Narrative: 33 yo HF reports she didn't want to talk to anyone- she did eat today- but had been having diarrhea and not feeling well so didn't eat prior to this- has refused one of her medications for bp that she stopped when she went to [place] and missed dialysis - because she didn't like what she thinks is a s/e of that htn med hydralazine of diarrhea- says she soiled herself like a baby and she could not tolerate that- She lives with her sister in the area and she stays in touch daily- she visited brother in [place] last 2 wks and missed dialysis- Past Psychiatric History: hx of one inpatient psychiatric hospitalization at [facility]. hx of seeing an outpatient psychiatrist and therapist when she was 11 y/o; does not recall medication hx. Personal & Social History: see above chronic medical condition- with dialysis and amputations Review of Systems Review of Systems co diarrhea always nauseous PMFSH Medical History End stage chronic kidney disease Chronic kidney disease Anemia Chronic foot ulcer Plantar ulcer of left foot Major depressive disorder, single episode, severe ESRD (end stage renal disease) Non-compliance with renal dialysis Hypertensive urgency MDD (major depressive disorder), recurrent episode MDD (major depressive disorder) Renal failure Foot ulcer CKD (chronic kidney disease) Hypertension Diabetic foot Hyperkalemia Vomiting Renal failure Hypertension Migraine Chronic pain ESRD on dialysis Non-compliance with renal dialysis Hypertension End-stage renal disease (ESRD) Gastroparesis Diabetic foot ulcer associated with type 2 diabetes mellitus Hypertensive emergency Diabetes ESRD needing dialysis Cardiomyopathy HFrEF (heart failure with reduced ejection fraction) Metabolic acidosis delivery delivered Anemia in chronic kidney disease (CKD) CKD (chronic kidney disease) Headache, migraine Abnormal finding on echocardiogram Elevated troponin Chest pain Acute worsening of stage 3 chronic kidney disease Generalized edema Sepsis Cellulitis Pleural effusion CHF (congestive heart failure) (~06/07/22) Tachycardia Atypical chest pain Bone infection PAD (peripheral artery disease) Severe anemia Cellulitis and abscess of foot DM foot ulcer Osteomyelitis Asthma Depression with anxiety Diabetic retinopathy Type 2 diabetes mellitus with hyperglycemia, with long-term current use of insulin Blind right eye Diabetes Back pain Surgical History Tubal ligation status Previous section Hx laparoscopic cholecystectomy Hx of surgical procedure (~09/11/23) 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 Family History: unknown Social History: Lives with her sister, single, 2 children(13 and 11 y/o; live with their father in [place]), disability Trauma History: yes Diagnostics Vital Signs (24Hr): Vital Signs - 24 hr 01/18/24 20:00 01/19/24 00:00 01/19/24 00:14 Temperature 97.4 F 97.5 F Pulse Rate 83 80 82 Respiratory Rate 18 18 Blood Pressure 188/103 H 182/108 H 182/108 H Pulse Oximetry 100 98 Oxygen Delivery Method Nasal Cannula Nasal Cannula Oxygen Flow Rate 5 2 01/19/24 04:00 01/19/24 05:14 01/19/24 08:00 Temperature 98.0 F 98.0 F Pulse Rate 79 82 84 Respiratory Rate 18 20 Blood Pressure 188/101 H 180/100 H 158/78 H Pulse Oximetry 96 99 Oxygen Delivery Method Nasal Cannula Nasal Cannula Oxygen Flow Rate 2 2 01/19/24 12:00 01/19/24 15:36 Temperature 97.6 F 97.9 F Pulse Rate 79 81 Respiratory Rate 18 16 Blood Pressure 170/72 H 159/80 H Pulse Oximetry 100 100 Oxygen Delivery Method Nasal Cannula Nasal Cannula Oxygen Flow Rate 2 6 BMI result Body Mass Index 29.0 Labs 01/15/24 10:38 01/17/24 12:41 Labs: Laboratory Results - last 48 hr 01/17/24 01/18/24 01/18/24 19:33 00:16 03:34 POC Glucose 89 84 66 01/18/24 01/18/24 01/18/24 04:07 04:43 08:15 POC Glucose 67 90 85 01/18/24 01/18/24 01/18/24 11:19 15:30 19:59 POC Glucose 134 H 73 62 01/18/24 01/18/24 01/19/24 21:25 23:32 03:32 POC Glucose 102 68 69 01/19/24 01/19/24 01/19/24 07:47 11:48 16:09 POC Glucose 65 79 83 Imaging Radiology Impressions: ITS Impressions Chest X-Ray 01/14/24 19:37 IMPRESSION: *Minimal right lower lobe atelectasis and/or consolidation. *Right internal jugular dual lumen catheter terminating within the right atrium. Electronically signed by: Raman Al MD 01/14/2024 11:58 PM EST RP Abdomen/Pelvis CT 01/15/24 13:21 IMPRESSION: The amount of ascites has decreased, from 11/14/2023. Findings related to the anterior abdominal wall, appears slightly more apparent. Cellulitis related to anterior abdominal wall or rectus musculature and perigluteal fat is also possible. In addition, an infiltrative process in the liver may well be present, unchanged however from 11/09/2023. The liver remains diffusely enlarged and heterogeneous. The right effusion is stable and there has been improvement in the left lung since the prior study with resolution of the left basilar consolidation and pleural effusion. Electronically signed by: Bg Marino MD 01/15/2024 05:53 PM EST RP Chest CT 01/15/24 13:21 IMPRESSION: The amount of ascites has decreased, from 11/14/2023. Findings related to the anterior abdominal wall, appears slightly more apparent. Cellulitis related to anterior abdominal wall or rectus musculature and perigluteal fat is also possible. In addition, an infiltrative process in the liver may well be present, unchanged however from 11/09/2023. The liver remains diffusely enlarged and heterogeneous. The right effusion is stable and there has been improvement in the left lung since the prior study with resolution of the left basilar consolidation and pleural effusion. Electronically signed by: Bg Marino MD 01/15/2024 05:53 PM EST RP Mental Status Exam Mental Status Exam Patient Appearance: Unkempt Patient Orientation: Person, Place, Time and Situation Level of Consciousness: Awake and Inappropriate Patient Behavior: Appropriate and Guarded Mood Description: Anxious and Sad Affect Description: Appropriate Patient Cognition Impaired: No Ability to Follow Directions: Fair Speech Pattern: Clear Memory Description: Intact Hallucinations: None Delusions: Not Present Thought Process: Intact Thought Content: positive for Intact Judgement: Fair Medications Medications Current Medications Acetaminophen (Acetaminophen 325 Mg Tablet) 650 mg PO Q6H PRN PRN Reason: Pain, Mild (Pain Scale 1-3), fever or headache Last Admin: 01/15/24 20:15 Dose: 650 mg Calcitriol (Calcitriol Oral Soln 0.25 Mcg/0.25 Ml Solution) 0.25 mcg PO MoWeFr@0900 [facility] Last Admin: 01/18/24 08:07 Dose: Not Given Calcium Carbonate (Calcium Carbonate 750 Mg Tab.Chew) 750 mg PO Q4H PRN PRN Reason: Heartburn Carvedilol (Carvedilol 12.5 Mg Tablet) 12.5 mg PO BID [facility]; Protocol Glucose (Glucose Gel 15 Gm Gel..Gram.) 15 gm PO Q15M PRN; Protocol PRN Reason: per Hypoglycemia Standing Ord. Last Admin: 01/18/24 03:40 Dose: 15 gm Heparin Sodium (Porcine) (Heparin Sodium,Porcine 5,000 Unit/Ml Vial) 5,000 unit SUBCUT Q12H [facility] Last Admin: 01/19/24 08:36 Dose: Not Given Hydralazine HCl (Hydralazine Hcl 50 Mg Tablet) 50 mg PO TID [facility]; Protocol Last Admin: 01/19/24 15:07 Dose: Not Given Hydromorphone HCl (Hydromorphone Hcl 1 Mg/Ml Syringe) 1 mg IVPUSH Q6H PRN; Protocol PRN Reason: Pain, Severe (Pain Scale 7-10) Last Admin: 01/19/24 15:06 Dose: 1 mg Dextrose (D10) 250 mls @ 750 mls/hr IV Q15M PRN; Protocol PRN Reason: per Hypoglycemia Standing Ord. Last Infusion: 01/19/24 09:24 Dose: Infused Piperacillin Sod/Tazobactam (Sod 2.25 gm/ Sodium Chloride) 50 mls @ 100 mls/hr IV Q8H [facility] Last Infusion: 01/19/24 14:01 Dose: Infused Insulin Human Lispro (Insulin Lispro 100 Unit/Ml 3 Ml Vial) 0 unit SUBCUT QIDACHS [facility]; Protocol Last Admin: 01/19/24 16:37 Dose: Not Given Lidocaine (Lidocaine 4 % Patch Adh..Patch) 1 patch TRANSDERMA DAILY [facility] Last Admin: 01/19/24 08:19 Dose: 1 patch Magnesium Hydroxide (Milk Of Magnesia 30 Ml Oral.Susp) 30 ml PO DAILY PRN PRN Reason: Constipation Melatonin (Melatonin 3 Mg Tablet) 6 mg PO BEDTIME PRN PRN Reason: Insomnia Ondansetron HCl (Ondansetron Hcl 4 Mg/2 Ml Vial) 4 mg IVPUSH Q8H PRN PRN Reason: Nausea and Vomiting Last Admin: 01/19/24 15:23 Dose: 4 mg Oxycodone HCl (Oxycodone Hcl Immed Release 5 Mg Tablet) 5 mg PO Q6H PRN PRN Reason: Pain, Severe (Pain Scale 7-10) Sodium Chloride (0.9 % Sodium Chloride Flush 3 Ml Syringe) 3 ml IVFLUSH QSHIFT [facility] Last Admin: 01/19/24 08:34 Dose: 3 ml Allergies Allergies Allergy/AdvReac Type Severity Reaction Status Date / Time morphine [MORPHINE] Allergy Intermediate Itching Verified 01/14/24 18:40 azithromycin [From Zithromax] Allergy Hives Verified 01/14/24 18:40 gabapentin Allergy Facial Verified 01/14/24 18:40 Swelling tramadol Allergy Facial Verified 01/14/24 18:40 Swelling vancomycin Allergy Anaphylaxis Verified 01/14/24 18:40 Assessment & Plan Assessment & Plan (1) Adj react-emotion NEC: Status: Acute Code(s): F43.29 - Adjustment disorder with other symptoms Plan does not seem to be suicidal - though there may be some chronic illness fatigue hx of depression/ptsd but doesn't like to share connected with family - friends- hoping to get medication changed due to perceived side effect ? other etio of her diarrhea- Total time managing care of this patient today ____ minutes. Patient educated on: diagnosis, medication risk/benefits and medical condition Informed Consent: understands
[2024-01-19] MEDS: carvediloL 12.5 MG TABLET PO (20:08)
[2024-01-19 20:09] LABS: Glucose, Whole Blood 105 mg/dL (60-115)
[2024-01-20] VITALS (9 sets, daily range): BP systolic 120–174; BP diastolic 70–94; PULSE 65–74; RESP 10–20; TEMP 36–36.4; O2SAT 97–100; BMI 28.9
[2024-01-20 00:08] LABS: Glucose, Whole Blood 80 mg/dL (60-115)
[2024-01-20] MEDS: Piperacillin Sodium/Tazobactam 2.25 GM in 0.9 % Sodium Chloride 50 ML IV ×3 (04:12→18:52)
[2024-01-20] MEDS: ondansetron HCL 4 MG/2 ML VIAL IVPUSH ×2 (04:13→11:56)
[2024-01-20] MEDS: HYDROmorphone HCl 1 MG/ML SYRINGE IVPUSH ×3 (04:14→20:08)
[2024-01-20 08:09] LABS: Glucose, Whole Blood 70 mg/dL (60-115)
[2024-01-20] MEDS: hydrALAZINE HCl 50 MG TABLET PO ×3 (08:20→20:08)
[2024-01-20] MEDS: carvediloL 12.5 MG TABLET PO ×2 (08:24→20:07)
[2024-01-20] MEDS: 0.9 % Sodium Chloride Flush 3 ML SYRINGE IVFLUSH ×2 (08:49→20:20)
[2024-01-20] MEDS: Lidocaine 4 % Patch ADH..PATCH 1 PATCH TRANSDERMA (08:49)
--- NOTE | 2024-01-20 09:07 | P.PNIM_ITS ---
Subjective Subjective Date of Service: 01/20/24 Interval History: Seen and examined this morning Follow-up for line infection, hypoglycemia Reports ongoing decreased p.o. intake. denies abdominal pain No overnight events Review of Systems Review of Systems: Yes all other systems are reviewed and are negative Constitutional Constitutional: Denies chills and Denies fever(s) Cardiovascular Cardiovascular: Denies chest pain Gastrointestinal Gastrointestinal: Denies abdominal pain, Reports nausea and Denies vomiting Physical Exam 2 Vital Signs: Vital Signs: Last Vital Signs Temp 97.3 F 01/20/24 07:31 Pulse 70 01/20/24 07:31 Resp 12 01/20/24 07:31 BP 168/94 H 01/20/24 08:20 Pulse Ox 100 01/20/24 07:31 O2 Del Method Nasal Cannula 01/20/24 07:31 O2 Flow Rate 4 01/20/24 07:31 Oxygen Flow Rate 2 01/14/24 18:38 BMI result Body Mass Index 28.9 Appearing in no acute distress, blind lung sounds are clear to auscultation heart regular rate rhythm, clear S1, S2 positive bowel sounds, abdomen is soft, nontender neuro patient is alert x3, no focal deficits bilateral TMA Objective Data Active Medications Acetaminophen (Acetaminophen 325 Mg Tablet) 650 mg PO Q6H PRN PRN Reason: Pain, Mild (Pain Scale 1-3), fever or headache Last Admin: 01/15/24 20:15 Dose: 650 mg Documented By: MONTEZ Calcitriol (Calcitriol Oral Soln 0.25 Mcg/0.25 Ml Solution) 0.25 mcg PO MoWeFr@0900 [facility] Last Admin: 01/18/24 08:07 Dose: Not Given Documented By: YOLIS Non-Admin Reason: Patient Refused Calcium Carbonate (Calcium Carbonate 750 Mg Tab.Chew) 750 mg PO Q4H PRN PRN Reason: Heartburn Carvedilol (Carvedilol 12.5 Mg Tablet) 12.5 mg PO BID [facility]; Protocol Last Admin: 01/20/24 08:24 Dose: 12.5 mg Documented By: YUE Glucose (Glucose Gel 15 Gm Gel..Gram.) 15 gm PO Q15M PRN; Protocol PRN Reason: per Hypoglycemia Standing Ord. Last Admin: 01/18/24 03:40 Dose: 15 gm Documented By: TIFFANIE Heparin Sodium (Porcine) (Heparin Sodium,Porcine 5,000 Unit/Ml Vial) 5,000 unit SUBCUT Q12H [facility] Last Admin: 01/20/24 08:27 Dose: Not Given Documented By: YUE Non-Admin Reason: Patient Refused Hydralazine HCl (Hydralazine Hcl 50 Mg Tablet) 50 mg PO TID [facility]; Protocol Last Admin: 01/20/24 08:20 Dose: 50 mg Documented By: YUE Hydromorphone HCl (Hydromorphone Hcl 1 Mg/Ml Syringe) 1 mg IVPUSH Q6H PRN; Protocol PRN Reason: Pain, Severe (Pain Scale 7-10) Last Admin: 01/20/24 04:14 Dose: 1 mg Documented By: KANDI Dextrose (D10) 250 mls @ 750 mls/hr IV Q15M PRN; Protocol PRN Reason: per Hypoglycemia Standing Ord. Last Infusion: 01/19/24 09:24 Dose: Infused Documented By: YUE Piperacillin Sod/Tazobactam (Sod 2.25 gm/ Sodium Chloride) 50 mls @ 100 mls/hr IV Q8H [facility] Last Infusion: 01/20/24 04:42 Dose: Infused Documented By: KANDI Insulin Human Lispro (Insulin Lispro 100 Unit/Ml 3 Ml Vial) 0 unit SUBCUT QIDACHS [facility]; Protocol Last Admin: 01/20/24 08:27 Dose: Not Given Documented By: YUE Non-Admin Reason: No Insulin Coverage Lidocaine (Lidocaine 4 % Patch Adh..Patch) 1 patch TRANSDERMA DAILY [facility] Last Admin: 01/20/24 08:49 Dose: 1 patch Documented By: YUE Magnesium Hydroxide (Milk Of Magnesia 30 Ml Oral.Susp) 30 ml PO DAILY PRN PRN Reason: Constipation Melatonin (Melatonin 3 Mg Tablet) 6 mg PO BEDTIME PRN PRN Reason: Insomnia Ondansetron HCl (Ondansetron Hcl 4 Mg/2 Ml Vial) 4 mg IVPUSH Q8H PRN PRN Reason: Nausea and Vomiting Last Admin: 01/20/24 04:13 Dose: 4 mg Documented By: KANDI Oxycodone HCl (Oxycodone Hcl Immed Release 5 Mg Tablet) 5 mg PO Q6H PRN PRN Reason: Pain, Severe (Pain Scale 7-10) Sodium Chloride (0.9 % Sodium Chloride Flush 3 Ml Syringe) 3 ml IVFLUSH QSHIFT [facility] Last Admin: 01/20/24 08:49 Dose: 3 ml Documented By: YUE Labs 01/20/24 11:58 01/20/24 11:58 Labs: Laboratory Results - last 24 hr 01/19/24 01/19/24 01/19/24 11:48 16:09 20:04 POC Glucose 79 83 105 01/19/24 01/20/24 23:59 08:05 POC Glucose 80 70 Assessment and Plan (1) End stage chronic kidney disease: Status: Acute (2) Non-compliance with renal dialysis: Status: Acute (3) Decompensated heart failure: Status: Acute Plan 33-year-old female with pertinent history of ESRD on hemodialysis, 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 Central line bloodstream infection blood cultures from [facility] growing stenotrophomonas maltophilia and acinetobacter peripheral blood cultures negative continue IV Zosyn for now, plan to discharge with 4 weeks of po bactrim ID following s/p catheter changeover 01/17 Acute on chronic congestive heart failure with reduced ejection fraction with chronic hypoxia Due to noncompliance with hemodialysis. Given IV Lasix in the ER. patient had dialysis 01/14, RR called for unresponsiveness secondary to hypoglycemia, tx to ICU for hypotension, tx back to tele a few hours later last HD 01/16, refused dialysis 01/18 nephrology following Hypertensive emergency in a patient with poorly controlled hypertension due to medication noncompliance has not been getting blood pressure meds BP trending up will resume hydralazine coreg ESRD on hemodialysis Missed 1 week of dialysis prior to admission . nephrology following HD as scheduled [id number] diabetes mellitus with diabetic polyneuropathy/retinopathy with hypoglycemia Accu-Cheks Q4h due to hypoglycemia, likely secondary to bacteremia s/p D10 IV continues with decreased po intake but better Mood disorder Not on mood stabilizers CAD/cardiomyopathy On beta-mohamud. 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 DVT prophylaxis: Heparin Attending Dr. Blanton Full code Quality Stroke Does the patient have a stroke diagnosis?: No VTE Prior VTE?: No VTE Risk Level:: Medical - moderate - high VTE Device Contraindication: Treatment Not Indicated VTE Drug Contraindication: N/A - Med Ordered
[2024-01-20 11:26] LABS: Glucose, Whole Blood 113 mg/dL (60-115)
[2024-01-20] MEDS: Calcium Carbonate 750 MG TAB.CHEW PO (11:56)
[2024-01-20 12:20] LABS: Hematocrit 25.2 % (37.0-47.0); Hemoglobin 8.3 g/dl (12.0-16.0); Mean Corpuscular HGB Conc 32.9 g/dl (31.0-35.0); Mean Corpuscular Hemoglobin 30.5 pg (27.0-33.0); Mean Corpuscular Volume 92.6 fL (80.0-98.0); Mean Platelet Volume 12.3 fL (9.4-12.3); Red Blood Count 2.72 X10*6/uL (4.20-5.50); Red Cell Distribution Width 16.7 % (11.0-16.0); White Blood Count 4.3 X10*3/uL (4.8-10.8)
[2024-01-20 12:28] LABS: Estimated Average Glucose 100 mg/dL; Hemoglobin A1C 69.7521 umol/L; Hemoglobin A1c % 5.1 % (<6.0); Platelet Count 77 X10*3/uL (160-400); Total Hemoglobin (HGBA1C) 2191.3179 umol/L
[2024-01-20 12:46] LABS: Anion Gap 18 (12-20); Blood Urea Nitrogen 39 mg/dL (9-16); Calcium 7.7 mg/dL (8.4-10.2); Carbon Dioxide 21 mmol/L (22-29); Chloride 96 mmol/L (96-108); Creatinine Clr Calc Pharmacy 12.8; Estimated Glomerular Filt Rate 7; Glucose Random 111 mg/dL (60-115); Potassium 3.4 mmol/L (3.3-5.1); Sodium 132 mmol/L (135-145)
--- NOTE | 2024-01-20 14:58 | PM.DS ---
DS: Providers Provider Date of admission: 01/14/24 21:13 Primary care physician: Genevieve Casillas MD Consults: 01/14/24 22:22 Consult to Nephrology Routine Consulting Provider: [facility] Reason for consultation: Missed dialysis 01/16/24 08:02 Consult to Wound Care Routine Reason for consultation: Chronic wounds present on bilateral foot amps Has provider been notified: Yes 01/16/24 08:08 Consult to Infectious Diseases Routine Consulting Provider: [facility] Reason for consultation: GNR bacteremia 01/18/24 11:13 Consult to Gastroenterology Routine Consulting Provider: Shay Cadet Reason for consultation: decreased po intake, nausea Has provider been notified: No 01/18/24 18:18 Consult to Psychiatry Routine Consulting Provider: [facility] Reason for consultation: refusing meds, refusing care, not eating Has provider been notified: No DS: Diagnosis Discharge Diagnosis (1) End stage chronic kidney disease: Status: Acute (2) Non-compliance with renal dialysis: Status: Acute (3) Decompensated heart failure: Status: Acute DS: Summary Hospital Course Hospital Course: H and P as per admitting provider. 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 Patient states her last dialysis was more than a week ago as she was on vacation in [place]. Patient is complaining of increasing dyspnea which has been progressive. Dyspnea is worse when she lays flat. Also did not take her p.o. medications for blood pressure during her vacation. Unclear if she completed her antibiotic course. Not interested in answering further questions regarding HPI. Denies fever, chills, palpitations, abdominal pain. In the emergency department, patient was IV furosemide and Nephrology was consulted. Central line bloodstream infection. blood cultures from [facility] growing stenotrophomonas maltophilia and acinetobacter. peripheral blood cultures negative. continue IV Zosyn for now, plan to discharge with 4 weeks of po bactrim, s/p catheter changeover 01/17 Acute on chronic congestive heart failure with reduced ejection fraction with chronic hypoxia. Resolved. Due to noncompliance with hemodialysis. . Given IV Lasix in the ER. patient had dialysis 01/14, RR called for unresponsiveness secondary to hypoglycemia, tx to ICU for hypotension, tx back to tele a few hours later. nephrology following Hypertensive emergency in a patient with poorly controlled hypertension due to medication noncompliance. continue hydralazine and coreg ESRD on hemodialysis HD as scheduled [id number] diabetes mellitus with diabetic polyneuropathy/retinopathy with hypoglycemia. A1C 5.1. increase nutrition and protein. Mood disorder Not on mood stabilizers CAD/cardiomyopathy On beta-mohamud. 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 Physical Exam Vital Signs: Vital Signs: Last Vital Signs Temp 96.8 F 01/20/24 11:35 Pulse 65 01/20/24 11:35 Resp 16 01/20/24 11:35 BP 138/80 01/20/24 11:35 Pulse Ox 99 01/20/24 11:35 O2 Del Method Nasal Cannula 01/20/24 11:35 O2 Flow Rate 5 01/20/24 11:35 Oxygen Flow Rate 2 01/14/24 18:38 BMI result Body Mass Index 28.9 DS: Data Data Completed and Pending Completed studies during hospitalization [Text1]: Procedures Detachment at Left 2nd Toe, Complete, Open Approach (09/08/23) Detachment at Left 3rd Toe, Complete, Open Approach (09/08/23) Detachment at Left 4th Toe, Complete, Open Approach (09/08/23) Detachment at Right Foot, Partial 1st Ray, Open Approach (03/01/20) Detachment at Right Foot, Partial 2nd Ray, Open Approach (03/01/20) Detachment at Right Foot, Partial 3rd Ray, Open Approach (03/01/20) Detachment at Right Foot, Partial 4th Ray, Open Approach (03/01/20) Detachment at Right Foot, Partial 5th Ray, Open Approach (03/01/20) Drainage of Right Pleural Cavity, Percutaneous Approach (01/14/21) Excision of Left Foot Skin, External Approach (10/08/23) Excision of Left Foot Subcutaneous Tissue and Fascia, Open Approach (10/08/23) Excision of Right Foot Skin, External Approach (08/27/23) Excision of Stomach, Pylorus, Via Natural or Artificial Opening Endoscopic, Diagnostic (08/27/22) Fluoroscopy of Superior Vena Cava, Guidance (08/14/22) Insertion of Endotracheal Airway into Trachea, Via Natural or Artificial Opening (11/10/23) Insertion of Infusion Device into Right Atrium, Percutaneous Approach (08/14/22) Insertion of Infusion Device into Superior Vena Cava, Percutaneous Approach (11/10/23) Insertion of Infusion Device into Upper Vein, Percutaneous Approach (08/27/23) Insertion of Tunneled Vascular Access Device into Chest Subcutaneous Tissue and Fascia, Percutaneous Approach (11/10/23) Introduction of Vasopressor into Peripheral Vein, Percutaneous Approach (11/10/23) Isolation (11/10/23) Performance of Urinary Filtration, Intermittent, Less than 6 Hours Per Day (12/11/23) Removal of Infusion Device from Great Vessel, External Approach (01/14/21) Respiratory Ventilation, Greater than 96 Consecutive Hours (11/10/23) Transfusion of Nonautologous Red Blood Cells into Peripheral Vein, Percutaneous Approach (11/10/23) Ultrasonography of Superior Vena Cava, Guidance (11/10/23) Labs on day of discharge: Laboratory Results - last 24 hr 01/19/24 01/19/24 01/19/24 16:09 20:04 23:59 WBC RBC Hgb Hct MCV MCH MCHC RDW Plt Count MPV Absolute Nucleated RBC Nucleated RBC % (auto) Sodium Potassium Chloride Carbon Dioxide Anion Gap BUN Creatinine Estim Creat Clear Calc Estimated GFR POC Glucose 83 105 80 Random Glucose Estimat Average Glucose Hemoglobin A1c % Calcium 01/20/24 01/20/24 01/20/24 08:05 11:12 11:58 WBC 4.3 L RBC 2.72 L Hgb 8.3 L Hct 25.2 L MCV 92.6 MCH 30.5 MCHC 32.9 RDW 16.7 H Plt Count 77 L D MPV 12.3 Absolute Nucleated RBC 0.000 Nucleated RBC % (auto) 0.0 Sodium 132 L Potassium 3.4 Chloride 96 Carbon Dioxide 21 L Anion Gap 18 BUN 39 H Creatinine 6.57 H* Estim Creat Clear Calc 12.8 Estimated GFR 7 POC Glucose 70 113 Random Glucose 111 Estimat Average Glucose 100 Hemoglobin A1c % 5.1 Calcium 7.7 L Preliminary micro results at discharge 01/15/24 20:34 Blood Culture - Preliminary Blood - Venous No growth after 48 hours. 11/19/24 20:34 Blood Culture - Preliminary Blood - Venous No growth after 48 hours. Discharge Plan Discharge Discharge Diagnosis: Central line bloodstream infection stenotrophomonas maltophilia and acinetobacter Acute on chronic congestive heart failure reduced ejection fraction Hypertensive emergency End-stage renal disease on hemodialysis Referrals: Genevieve Gtz MD [Primary Care Provider] - 1 Week Discharge Medications: Continued carvedilol 12.5 mg Tablet 12.5 mg PO BID 90 Days Qty: 180 0RF Protocol: Hold for SBP/HR < HOLD for SBP < : 90 HOLD for HR < : 60 hydralazine 50 mg Tablet 50 mg PO TID 90 Days Qty: 270 0RF Protocol: Hold for SBP< HOLD for SBP < : 90 sulfamethoxazole-trimethoprim [Bactrim] 400-80 mg tablet 1 tab PO Q24H Qty: 28 0RF lidocaine 5 % adhesive patch,medicated 1 patch topical DAILY nitroglycerin 0.4 mg tablet, sublingual 0.4 mg sublingual DIRECTED PRN (Reason: Angina) albuterol sulfate [Ventolin HFA] 90 mcg/actuation HFA aerosol inhaler 2 puff inhalation Q6H PRN (Reason: wheezing) oxycodone 5 mg tablet 5 mg PO Q8H PRN (Reason: pain) Diet: Advance to usual diet Activity on Discharge: As tolerated Print Language: Austrian Care Plan Goals: Do not skip any scheduled dialysis sessions continue on your Sunday, and Sunday schedule Health Concerns: Central line bloodstream infection stenotrophomonas maltophilia and acinetobacter Acute on chronic congestive heart failure reduced ejection fraction Hypertensive emergency End-stage renal disease on hemodialysis Plan of Treatment: Follow-up with primary care provider as needed Take all medications as prescribed Assessment: See discharge summary
[2024-01-20 16:32] LABS: Glucose, Whole Blood 107 mg/dL (60-115)
[2024-01-20 20:14] LABS: Glucose, Whole Blood 127 mg/dL (60-115)
[2024-01-21 04:00] VITALS: BP 130/80; PULSE 66; RESP 16; TEMP 36.1; O2SAT 98
[2024-01-21] MEDS: HYDROmorphone HCl 1 MG/ML SYRINGE IVPUSH ×3 (04:08→20:15)
[2024-01-21] MEDS: Piperacillin Sodium/Tazobactam 2.25 GM in 0.9 % Sodium Chloride 50 ML IV ×2 (04:09→11:52)
[2024-01-21 04:38] VITALS: RESP 18
[2024-01-21 06:00] VITALS: BMI 29.1
[2024-01-21 06:32] LABS: Glucose, Whole Blood 80 mg/dL (60-115)
[2024-01-21 07:48] VITALS: BP 127/74; PULSE 64; RESP 20; TEMP 36.1; O2SAT 100
[2024-01-21 07:57] LABS: Glucose, Whole Blood 77 mg/dL (60-115)
[2024-01-21] MEDS: 0.9 % Sodium Chloride Flush 3 ML SYRINGE IVFLUSH (11:51)
[2024-01-21] MEDS: ondansetron HCL 4 MG/2 ML VIAL IVPUSH ×2 (11:51→20:14)
[2024-01-21 11:55] LABS: Glucose, Whole Blood 103 mg/dL (60-115)
--- NOTE | 2024-01-21 13:10 | MHC.CM.PN ---
Patient is not yet medically cleared for dc (Pending Surgical Consult, monitoring CBC/Platelets, IV Dilaudid today); home is the goal and CM will continue to follow.
--- NOTE | 2024-01-21 15:29 | PM.CNGS ---
History of Present Illness Consult details Consult date: 01/21/24 Requesting physician: Angela Ulloa Narrative: 33-year-old female patient well known to the service with diabetes mellitus, end-stage renal disease, hemodialysis, cerebrovascular disease, blindness and a history of bilateral transmetatarsal amputations surgical consultation requested for progression of her left heel ulcer with apparently foul-smelling discharge. She reports increased pain and discharge from the wound. Patient currently is be followed by the wound care nurse who was applied Iodosorb to the wounds followed by dry sterile dressings. She has previously undergone debridement of the left heel plantar ulcer by Dr. Rajput on 10/12/2023. She was admitted to the hospitalist service on 01/14/2024 with dyspnea. Review of Systems Review of Systems: Yes Unobtainable due to mental condition PMFSH Past Medical History Medical History Gastroparesis End stage chronic kidney disease Chronic kidney disease Anemia Chronic foot ulcer Plantar ulcer of left foot Major depressive disorder, single episode, severe ESRD (end stage renal disease) Non-compliance with renal dialysis Hypertensive urgency MDD (major depressive disorder), recurrent episode MDD (major depressive disorder) Renal failure Foot ulcer CKD (chronic kidney disease) Hypertension Diabetic foot Hyperkalemia Vomiting Renal failure Hypertension Migraine Chronic pain ESRD on dialysis Non-compliance with renal dialysis Hypertension End-stage renal disease (ESRD) Diabetic foot ulcer associated with type 2 diabetes mellitus Hypertensive emergency Diabetes ESRD needing dialysis Cardiomyopathy HFrEF (heart failure with reduced ejection fraction) Metabolic acidosis delivery delivered Anemia in chronic kidney disease (CKD) CKD (chronic kidney disease) Headache, migraine Abnormal finding on echocardiogram Elevated troponin Chest pain Acute worsening of stage 3 chronic kidney disease Generalized edema Sepsis Cellulitis Pleural effusion CHF (congestive heart failure) (~06/07/22) Tachycardia Atypical chest pain Bone infection PAD (peripheral artery disease) Severe anemia Cellulitis and abscess of foot DM foot ulcer Osteomyelitis Asthma Depression with anxiety Diabetic retinopathy Type 2 diabetes mellitus with hyperglycemia, with long-term current use of insulin Blind right eye Diabetes Back pain Family History Family History Mother Coronary artery disease Myocardial infarction Stroke Diabetes mellitus Father Myocardial infarction Family history: reviewed and not pertinent Surgical History Surgical History Tubal ligation status Previous section Hx laparoscopic cholecystectomy Hx of surgical procedure (~09/11/23) 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 Social History Social History Household Members: Family Household Members Other:: Sister Housing: House Do you presently have visiting nurse or other home services: No Unable to assess alcohol history related to: Unknown Alcohol intake: never Comment: Remain w/ pt on commode. Patient Tobacco Use Status: Never used Tobacco e-Cigarette/Vaping Use: Never Used Advance Directives Date on File: 09/04/23 service: No Current occupational status: unemployed and disabled Gender identity: Female Meds Allergies Allergy/AdvReac Type Severity Reaction Status Date / Time morphine [MORPHINE] Allergy Intermediate Itching Verified 01/14/24 18:40 azithromycin [From Zithromax] Allergy Hives Verified 01/14/24 18:40 gabapentin Allergy Facial Verified 01/14/24 18:40 Swelling tramadol Allergy Facial Verified 01/14/24 18:40 Swelling vancomycin Allergy Anaphylaxis Verified 01/14/24 18:40 Active Medications: Current Medications Acetaminophen (Acetaminophen 325 Mg Tablet) 650 mg PO Q6H PRN PRN Reason: Pain, Mild (Pain Scale 1-3), fever or headache Last Admin: 01/15/24 20:15 Dose: 650 mg Calcitriol (Calcitriol Oral Soln 0.25 Mcg/0.25 Ml Solution) 0.25 mcg PO [id number] [facility] Last Admin: 01/21/24 11:52 Dose: Not Given Calcium Carbonate (Calcium Carbonate 750 Mg Tab.Chew) 750 mg PO Q4H PRN PRN Reason: Heartburn Last Admin: 01/20/24 11:56 Dose: 750 mg Carvedilol (Carvedilol 12.5 Mg Tablet) 12.5 mg PO BID [facility]; Protocol Last Admin: 01/21/24 08:53 Dose: Not Given Glucose (Glucose Gel 15 Gm Gel..Gram.) 15 gm PO Q15M PRN; Protocol PRN Reason: per Hypoglycemia Standing Ord. Last Admin: 01/18/24 03:40 Dose: 15 gm Heparin Sodium (Porcine) (Heparin Sodium,Porcine 5,000 Unit/Ml Vial) 5,000 unit SUBCUT Q12H [facility] Last Admin: 01/21/24 08:53 Dose: Not Given Hydralazine HCl (Hydralazine Hcl 50 Mg Tablet) 50 mg PO TID [facility]; Protocol Last Admin: 01/21/24 08:53 Dose: Not Given Hydromorphone HCl (Hydromorphone Hcl 1 Mg/Ml Syringe) 1 mg IVPUSH Q8H PRN; Protocol PRN Reason: Pain, Severe (Pain Scale 7-10) Last Admin: 01/21/24 11:51 Dose: 1 mg Dextrose (D10) 250 mls @ 750 mls/hr IV Q15M PRN; Protocol PRN Reason: per Hypoglycemia Standing Ord. Last Infusion: 01/19/24 09:24 Dose: Infused Piperacillin Sod/Tazobactam (Sod 2.25 gm/ Sodium Chloride) 50 mls @ 100 mls/hr IV Q8H [facility] Last Infusion: 01/21/24 12:32 Dose: Infused Insulin Human Lispro (Insulin Lispro 100 Unit/Ml 3 Ml Vial) 0 unit SUBCUT QIDACHS [facility]; Protocol Last Admin: 01/21/24 11:56 Dose: Not Given Lidocaine (Lidocaine 4 % Patch Adh..Patch) 1 patch TRANSDERMA DAILY [facility] Last Admin: 01/21/24 08:54 Dose: Not Given Magnesium Hydroxide (Milk Of Magnesia 30 Ml Oral.Susp) 30 ml PO DAILY PRN PRN Reason: Constipation Melatonin (Melatonin 3 Mg Tablet) 6 mg PO BEDTIME PRN PRN Reason: Insomnia Ondansetron HCl (Ondansetron Hcl 4 Mg/2 Ml Vial) 4 mg IVPUSH Q8H PRN PRN Reason: Nausea and Vomiting Last Admin: 01/21/24 11:51 Dose: 4 mg Oxycodone HCl (Oxycodone Hcl Immed Release 5 Mg Tablet) 5 mg PO Q6H PRN PRN Reason: Pain, Severe (Pain Scale 7-10) Sodium Chloride (0.9 % Sodium Chloride Flush 3 Ml Syringe) 3 ml IVFLUSH QSHIFT [facility] Last Admin: 01/21/24 11:51 Dose: 3 ml Home Medications ?Medication ?Instructions ?Recorded ?Confirmed ?Last Taken ?Type albuterol sulfate 90 mcg/actuation 2 puff inhalation Q6H PRN wheezing 01/15/24 01/15/24 Unknown History aerosol inhaler (Ventolin HFA) lidocaine 5 % topical patch 1 patch topical DAILY 01/15/24 01/15/24 Unknown History nitroglycerin 0.4 mg sublingual 0.4 mg sublingual DIRECTED PRN 01/15/24 01/15/24 Unknown History tablet Angina oxycodone 5 mg tablet 5 mg PO Q8H PRN pain 01/15/24 01/15/24 Unknown History Physical Exam Vital Signs: Vital Signs: Last Vital Signs Temp 97.0 F 01/21/24 07:48 Pulse 64 01/21/24 07:48 Resp 20 01/21/24 07:48 BP 127/74 01/21/24 07:48 Pulse Ox 100 01/21/24 07:48 O2 Del Method Nasal Cannula 01/21/24 07:48 O2 Flow Rate 4 01/21/24 07:48 Oxygen Flow Rate 2 01/14/24 18:38 BMI result Body Mass Index 29.1 Const: General: ill appearing Nutritional Appearance: average body habitus Orientation/consciousness: patient oriented x3 HEENT: Other: Bilateral blindness Resp: Other: Breathing comfortably on nasal O2 Skin: Other: Warm and dry Neuro: General: patient oriented x3 Extrem: Other: Left foot ulcers examined. Plantar ulcer covered with brown iodine cream with crusted surface, no erythema. No drainage identified. Second ulcer located over the Achilles region is also crusted but without purulent or foul-smelling discharge apparent. Overlying callus is identified. Attempt to debride at the bedside not successful due to the patient's discomfort. Clean sterile dressings reapplied. Plantar ulcer: Achilles ulcer: Results Labs 01/20/24 11:58 01/20/24 11:58 Labs: Abnormal lab results 01/20/24 Range/Units 20:07 POC Glucose 127 H (60-115) mg/dL Urine 01/15/24 Range/Units 04:59 Urine Color Yellow Urine Appearance Clear Urine pH 6.0 (5.0-9.0) Ur Specific [place] 1.015 (1.005-1.025) Urine Protein >=1000 (4+) H (Neg-Trace) mg/dL Urine Glucose (UA) 250 H (Negative) mg/dL All other labs normal. Assessment and Plan (1) Chronic ulcer of left foot due to diabetes mellitus: Status: Acute Plan Chronic bilateral foot ulcers due to diabetes. Patient reported to have foul-smelling discharge although I am unable to detect any discharge. There is dry callus on both the plantar and Achilles areas but no surrounding erythema to indicate underlying infection. Unable to debride at the bedside therefore she may require surgical debridement in the OR under anesthesia. I will attempt to add on the schedule for tomorrow or Sunday. As patient is on a TTS schedule for hemodialysis, may need to wait to Sunday. Procedures Date of Service Date of Service: 01/21/24
[2024-01-21 15:57] LABS: Glucose, Whole Blood 110 mg/dL (60-115)
[2024-01-21 16:00] VITALS: BP 153/72; PULSE 80; RESP 20; TEMP 36.5; O2SAT 97
--- NOTE | 2024-01-21 16:15 | HO.PM.IMPN ---
Subjective Subjective Date of Service: 01/21/24 Interval History: seen and examined this morning follow up for line infection, chronic foot wounds refused blood work this am no specific complaints Review of Systems Review of Systems: Yes all other systems are reviewed and are negative Constitutional Constitutional: Denies chills and Denies fever(s) Cardiovascular Cardiovascular: Denies chest pain, Denies palpitations and Denies dyspnea Respiratory Respiratory: Denies cough and Denies dyspnea Endocrine Endocrine: Denies palpitations Physical Exam Vital Signs: Vital Signs: Last Vital Signs Temp 97.7 F 01/21/24 16:00 Pulse 80 01/21/24 16:00 Resp 20 01/21/24 16:00 BP 153/72 H 01/21/24 16:00 Pulse Ox 97 01/21/24 16:00 O2 Del Method Nasal Cannula 01/21/24 16:00 O2 Flow Rate 2 01/21/24 16:00 Oxygen Flow Rate 2 01/14/24 18:38 BMI result Body Mass Index 29.1 Const: General: comfortable, no acute distress, alert and awake Nutritional Appearance: average body habitus Orientation/consciousness: patient oriented x3 Resp: Effort & Inspection: normal respiratory effort, able to speak in complete sentences, no respiratory distress and no use of accessory muscles Cardio: Rate: regular rate GI: Inspection: No distended Palpation (GI): Soft to palpation and nontender Skin: Other: b/l tma left heel Neuro: General: patient oriented x3, moves all extremities and CN's II-XI intact bilaterally Extrem: Other: 1+edema b/l legs Objective Data Active Medications Acetaminophen (Acetaminophen 325 Mg Tablet) 650 mg PO Q6H PRN PRN Reason: Pain, Mild (Pain Scale 1-3), fever or headache Last Admin: 01/15/24 20:15 Dose: 650 mg Documented By: MONTEZ Calcitriol (Calcitriol Oral Soln 0.25 Mcg/0.25 Ml Solution) 0.25 mcg PO MoWeFr@0900 [facility] Last Admin: 01/21/24 11:52 Dose: Not Given Documented By: ARPIT Non-Admin Reason: Patient Refused Calcium Carbonate (Calcium Carbonate 750 Mg Tab.Chew) 750 mg PO Q4H PRN PRN Reason: Heartburn Last Admin: 01/20/24 11:56 Dose: 750 mg Documented By: HO.[email or web address] Carvedilol (Carvedilol 12.5 Mg Tablet) 12.5 mg PO BID [facility]; Protocol Last Admin: 01/21/24 08:53 Dose: Not Given Documented By: ARPIT Non-Admin Reason: Patient Refused Glucose (Glucose Gel 15 Gm Gel..Gram.) 15 gm PO Q15M PRN; Protocol PRN Reason: per Hypoglycemia Standing Ord. Last Admin: 01/18/24 03:40 Dose: 15 gm Documented By: TIFFANIE Heparin Sodium (Porcine) (Heparin Sodium,Porcine 5,000 Unit/Ml Vial) 5,000 unit SUBCUT Q12H [facility] Last Admin: 01/21/24 08:53 Dose: Not Given Documented By: ARPIT Non-Admin Reason: Patient Refused Hydralazine HCl (Hydralazine Hcl 50 Mg Tablet) 50 mg PO TID [facility]; Protocol Last Admin: 01/21/24 15:31 Dose: Not Given Documented By: ARPIT Non-Admin Reason: Patient Refused Hydromorphone HCl (Hydromorphone Hcl 1 Mg/Ml Syringe) 1 mg IVPUSH Q8H PRN; Protocol PRN Reason: Pain, Severe (Pain Scale 7-10) Last Admin: 01/21/24 11:51 Dose: 1 mg Documented By: ARPIT Dextrose (D10) 250 mls @ 750 mls/hr IV Q15M PRN; Protocol PRN Reason: per Hypoglycemia Standing Ord. Last Infusion: 01/19/24 09:24 Dose: Infused Documented By: YUE Piperacillin Sod/Tazobactam (Sod 2.25 gm/ Sodium Chloride) 50 mls @ 100 mls/hr IV Q8H [facility] Last Infusion: 01/21/24 12:32 Dose: Infused Documented By: ARPIT Insulin Human Lispro (Insulin Lispro 100 Unit/Ml 3 Ml Vial) 0 unit SUBCUT QIDACHS [facility]; Protocol Last Admin: 01/21/24 16:03 Dose: Not Given Documented By: ARPIT Non-Admin Reason: No Insulin Coverage Lidocaine (Lidocaine 4 % Patch Adh..Patch) 1 patch TRANSDERMA DAILY [facility] Last Admin: 01/21/24 08:54 Dose: Not Given Documented By: ARPIT Non-Admin Reason: Patient Refused Magnesium Hydroxide (Milk Of Magnesia 30 Ml Oral.Susp) 30 ml PO DAILY PRN PRN Reason: Constipation Melatonin (Melatonin 3 Mg Tablet) 6 mg PO BEDTIME PRN PRN Reason: Insomnia Ondansetron HCl (Ondansetron Hcl 4 Mg/2 Ml Vial) 4 mg IVPUSH Q8H PRN PRN Reason: Nausea and Vomiting Last Admin: 01/21/24 11:51 Dose: 4 mg Documented By: ARPIT Oxycodone HCl (Oxycodone Hcl Immed Release 5 Mg Tablet) 5 mg PO Q6H PRN PRN Reason: Pain, Severe (Pain Scale 7-10) Sodium Chloride (0.9 % Sodium Chloride Flush 3 Ml Syringe) 3 ml IVFLUSH QSHIFT [facility] Last Admin: 01/21/24 11:51 Dose: 3 ml Documented By: ARPIT Labs 01/20/24 11:58 01/20/24 11:58 Labs: Laboratory Results - last 24 hr 01/20/24 01/20/24 01/21/24 16:28 20:07 04:13 POC Glucose 107 127 H 80 01/21/24 01/21/24 01/21/24 07:46 11:50 15:48 POC Glucose 77 103 110 Microbiology Microbiology Results: Microbiology 01/15/24 20:34 Blood Culture - Final Blood - Venous No growth after 5 days. 01/15/24 20:34 Blood Culture - Final Blood - Venous No growth after 5 days. 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 Central line bloodstream infection blood cultures from located within [facility] growing stenotrophomonas maltophilia and acinetobacter peripheral blood cultures negative initially treated with IV Zosyn will transition to po bactrim for total 4 weeks ID following s/p catheter changeover 01/17 ESRD on hemodialysis Missed 1 week of dialysis prior to admission nephrology following had dialysis 01/14, RR called for unresponsiveness secondary to hypoglycemia, tx to ICU for hypotension, tx back to tele a few hours later HD as scheduled typically schedule but refused HD on 01/18, thus had HD today 01/20 Acute on chronic congestive heart failure with reduced ejection fraction with chronic hypoxia Due to noncompliance with hemodialysis. Given IV Lasix in the ER, receiving regular HD during hospitalization chronic b/l foot wounds left heel appears to be worsening seen by general surgery, unable to tolerate bedside debridement - plan for debridement in OR tomorrow or sunday thrombocytopenia platelets trending down ? due to zosyn refused labs, difficult to monitor will stop zosyn Hypertensive emergency in a patient with poorly controlled hypertension due to medication noncompliance continue hydralazine, coreg [id number] diabetes mellitus with diabetic polyneuropathy/retinopathy with hypoglycemia hypoglycemia due to decreased po intake; s/p D10 IV continues with decreased po intake but better, stable blood sugar Mood disorder Not on mood stabilizers CAD/cardiomyopathy On beta-mohamud. 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 H/H stable DVT prophylaxis: Heparin Attending Dr. Blanton Full code Quality Stroke Does the patient have a stroke diagnosis?: No VTE Prior VTE?: No VTE Risk Level:: Medical - moderate - high VTE Device Contraindication: Treatment Not Indicated VTE Drug Contraindication: N/A - Med Ordered
[2024-01-21 19:30] VITALS: BP 172/94; PULSE 82; RESP 20; TEMP 36.3; O2SAT 96
[2024-01-21] MEDS: carvediloL 12.5 MG TABLET PO (20:14)
[2024-01-21] MEDS: hydrALAZINE HCl 50 MG TABLET PO (20:14)
[2024-01-21 20:16] LABS: Glucose, Whole Blood 124 mg/dL (60-115)
[2024-01-22] VITALS (11 sets, daily range): BP systolic 105–168; BP diastolic 57–86; PULSE 68–81; RESP 15–18; TEMP 35.7–36.6; O2SAT 92–100; BMI 29.0
--- NOTE | 2024-01-22 00:38 | P.PNNP_ITS ---
Subjective Subjective Date of Service: 01/21/24 Interval history: seen and examined today on Dialysis Physical Exam 2 Vital Signs: Vital Signs: Last Vital Signs Temp 97.3 F 01/21/24 19:30 Pulse 82 01/21/24 19:30 Resp 20 01/21/24 19:30 BP 172/94 H 01/21/24 19:30 Pulse Ox 96 01/21/24 19:30 O2 Del Method Nasal Cannula 01/21/24 19:30 O2 Flow Rate 2 01/21/24 19:30 Oxygen Flow Rate 2 01/14/24 18:38 BMI result Body Mass Index 29.1 Const: General: cooperative, comfortable, no acute distress, alert, awake and ill appearing Nutritional Appearance: average body habitus O rientation/consciousness: patient oriented x3 HEENT: Other: Bilateral blindness Head: Yes normal to inspection Face and sinus: Yes normal facial exam Mouth: Normal oral and palatal mucosa present Teeth and gingiva: dentition normal Eyes: General: appearance normal, both eyes and all related structures P upils: Equal, round and reactive pupils present Resp: Other: Breathing comfortably on nasal O2 Effort & Inspection: normal respiratory effort, able to speak in complete sentences, no respiratory distress and no use of accessory muscles Cardio: Rate: regular rate Rhythm: regular rhythm GI: Inspection: No distended Palpation (GI): Soft to palpation and nontender : General: Yes no CVA tenderness Back/Spine/Pelvis: Back: no CVA tenderness Skin: Other: b/l tma left heel General skin exam: no rashes or lesions noted Neuro: General: patient oriented x3, moves all extremities and CN's II-XI intact bilaterally Cranial nerves: Yes Equal, round and reactive pupils present Extrem: Other: 1+edema b/l legs General: Yes normal to inspection Psych: Appearance: grossly normal Objective Data Labs 01/20/24 11:58 01/20/24 11:58 Labs: Laboratory Results - last 24 hr 01/21/24 01/21/24 01/21/24 04:13 07:46 11:50 POC Glucose 80 77 103 01/21/24 01/21/24 15:48 20:13 POC Glucose 110 124 H Microbiology Microbiology Results: Microbiology 01/15/24 20:34 Blood - Venous Blood Culture - Final No growth after 5 days. 01/15/24 20:34 Blood - Venous Blood Culture - Final No growth after 5 days. 01/15/24 10:38 Blood - Arterial Line Blood Culture - Final Stenotrophomonas maltophilia Acinetobacter baumannii 01/15/24 10:38 Blood - Arterial Line Blood Culture - Final Stenotrophomonas maltophilia Procedures Date of Service Date of Service: 01/22/24 Assessment & Plan Assessment and plan (1) End stage chronic kidney disease: Status: Acute Assessment and Plan: ESRD: TTS; Nephrogenic anemia HTN- bp meds Non-compliance Left ij pc - now replaced REC: HD TTS scedule but shira today d/t THx Giving schedule adjustment; meds as noted; epo as ordered calcitriol likely Line infection- however rpt cx neg- per dw ID - now changed line over guide wire follow blood cultures - daily bmp discussed w team Time Spent With Patient Time: Total time managing care of this patient today ____ minutes. Progress Note: Quality Stroke Does the patient have a stroke diagnosis?: No
[2024-01-22] MEDS: HYDROmorphone HCl 1 MG/ML SYRINGE IVPUSH ×4 (04:11→21:59)
--- NOTE | 2024-01-22 08:25 | P.PNGS_ITS ---
Subjective Subjective Date of Service: 01/22/24 Interval history: Patient with no new complaints. Physical Exam 2 Vital Signs: Vital Signs: Last Vital Signs Temp 97.8 F 01/22/24 08:00 Pulse 75 01/22/24 08:00 Resp 18 01/22/24 08:00 BP 137/70 01/22/24 08:00 Pulse Ox 100 01/22/24 08:00 O2 Del Method Nasal Cannula 01/22/24 08:00 O2 Flow Rate 4 01/22/24 08:00 Oxygen Flow Rate 2 01/14/24 18:38 BMI result Body Mass Index 29.0 Const: General: no acute distress Nutritional Appearance: average body habitus Orientation/consciousness: patient oriented x3 Skin: Other: Bilateral feet: Dressings clean and intact. Neuro: General: patient oriented x3 Objective Data Active Medications Acetaminophen (Acetaminophen 325 Mg Tablet) 650 mg PO Q6H PRN PRN Reason: Pain, Mild (Pain Scale 1-3), fever or headache Last Admin: 01/15/24 20:15 Dose: 650 mg Documented By: MONTEZ Calcitriol (Calcitriol Oral Soln 0.25 Mcg/0.25 Ml Solution) 0.25 mcg PO MoWeFr@0900 [facility] Last Admin: 01/21/24 11:52 Dose: Not Given Documented By: ARPIT Non-Admin Reason: Patient Refused Calcium Carbonate (Calcium Carbonate 750 Mg Tab.Chew) 750 mg PO Q4H PRN PRN Reason: Heartburn Last Admin: 01/20/24 11:56 Dose: 750 mg Documented By: YUE Carvedilol (Carvedilol 12.5 Mg Tablet) 12.5 mg PO BID [facility]; Protocol Last Admin: 01/21/24 20:14 Dose: 12.5 mg Documented By: KANDI Glucose (Glucose Gel 15 Gm Gel..Gram.) 15 gm PO Q15M PRN; Protocol PRN Reason: per Hypoglycemia Standing Ord. Last Admin: 01/18/24 03:40 Dose: 15 gm Documented By: TIFFANIE Heparin Sodium (Porcine) (Heparin Sodium,Porcine 5,000 Unit/Ml Vial) 5,000 unit SUBCUT Q12H [facility] Last Admin: 01/21/24 22:09 Dose: Not Given Documented By: KANDI Non-Admin Reason: Patient Refused Hydralazine HCl (Hydralazine Hcl 50 Mg Tablet) 50 mg PO TID [facility]; Protocol Last Admin: 01/21/24 20:14 Dose: 50 mg Documented By: KANDI Hydromorphone HCl (Hydromorphone Hcl 1 Mg/Ml Syringe) 1 mg IVPUSH Q8H PRN; Protocol PRN Reason: Pain, Severe (Pain Scale 7-10) Last Admin: 01/22/24 04:11 Dose: 1 mg Documented By: KANDI Dextrose (D10) 250 mls @ 750 mls/hr IV Q15M PRN; Protocol PRN Reason: per Hypoglycemia Standing Ord. Last Infusion: 01/19/24 09:24 Dose: Infused Documented By: YUE Insulin Human Lispro (Insulin Lispro 100 Unit/Ml 3 Ml Vial) 0 unit SUBCUT QIDACHS [facility]; Protocol Last Admin: 01/21/24 22:08 Dose: Not Given Documented By: KANDI Non-Admin Reason: No Insulin Coverage Lidocaine (Lidocaine 4 % Patch Adh..Patch) 1 patch TRANSDERMA DAILY [facility] Last Admin: 01/21/24 08:54 Dose: Not Given Documented By: ARPIT Non-Admin Reason: Patient Refused Magnesium Hydroxide (Milk Of Magnesia 30 Ml Oral.Susp) 30 ml PO DAILY PRN PRN Reason: Constipation Melatonin (Melatonin 3 Mg Tablet) 6 mg PO BEDTIME PRN PRN Reason: Insomnia Ondansetron HCl (Ondansetron Hcl 4 Mg/2 Ml Vial) 4 mg IVPUSH Q8H PRN PRN Reason: Nausea and Vomiting Last Admin: 01/21/24 20:14 Dose: 4 mg Documented By: KANDI Oxycodone HCl (Oxycodone Hcl Immed Release 5 Mg Tablet) 5 mg PO Q6H PRN PRN Reason: Pain, Moderate(Pain Scale 4-6) Sodium Chloride (0.9 % Sodium Chloride Flush 3 Ml Syringe) [facility] Last Admin: 01/22/24 00:00 Dose: 3 ml Documented By: KANDI Trimethoprim/Sulfamethoxazole (Sulfamethox/Trimeth 400/80 Tablet) 1 tab PO DAILY [facility] Labs 01/20/24 11:58 01/20/24 11:58 Labs: Laboratory Results - last 24 hr 01/21/24 01/21/24 01/21/24 11:50 15:48 20:13 POC Glucose 103 110 124 H Procedures Date of Service Date of Service: 01/22/24 Progress Note: A&P Assessment and plan (1) Chronic ulcer of left foot due to diabetes mellitus: Status: Acute Plan 33-year-old female patient well known to the service with multiple medical problems including diabetes mellitus, renal disease requiring hemodialysis, peripheral vascular disease status post bilateral transmetatarsal amputations and chronic heel ulcers on the left foot causing increased pain and foul- smelling discharge. I recommended debridement in the OR given the patient's level of discomfort and after discussion of the procedure, risks, and alternatives, she consents to the debridement left foot diabetic ulcer. She has been added onto the operative schedule for today. Time Spent With Patient Time: Total time managing care of this patient today ____ minutes. Quality Stroke Does the patient have a stroke diagnosis?: No VTE Prior VTE?: No VTE Risk Level:: Medical - moderate - high VTE Device Contraindication: Treatment Not Indicated VTE Drug Contraindication: N/A - Med Ordered
[2024-01-22 08:51] LABS: Glucose, Whole Blood 79 mg/dL (60-115)
[2024-01-22] MEDS: carvediloL 12.5 MG TABLET PO (08:53)
[2024-01-22] MEDS: hydrALAZINE HCl 50 MG TABLET PO ×2 (08:53→16:52)
[2024-01-22] MEDS: Sulfamethox/Trimeth 400/80 TABLET 1 TAB PO (08:54)
[2024-01-22] MEDS: 0.9 % Sodium Chloride Flush 3 ML SYRINGE IVFLUSH ×4 (08:55→22:02)
[2024-01-22 09:09] LABS: MANUAL DIFF FLAG NO
[2024-01-22 09:14] LABS: Basophils Percent Auto 0.7 % (0-2); Eosinophils Absolute Auto 0.3 X10*3/uL (0.0-0.4); Eosinophils Percent Auto 5.4 % (0-4); Hematocrit 24.4 % (37.0-47.0); Hemoglobin 7.8 g/dl (12.0-16.0); Imm Gran Abs Auto 0.02 X10*3/uL (0.00-0.03); Imm Gran Pct Auto 0.4 % (0.0-0.4); Lymphocytes Absolute Auto 0.7 X10*3/uL (1.2-4.9); Lymphocytes Percent Auto 14.8 % (20-40); Mean Corpuscular Volume 93.8 fL (80.0-98.0); Mean Platelet Volume 12.5 fL (9.4-12.3); Monocytes Absolute Auto 0.5 X10*3/uL (0.1-1.2); Monocytes Percent Auto 10.2 % (2-11); Neutrophils Absolute Auto 3.2 x10*3/uL (2.0-8.3); Neutrophils Percent Auto 68.5 % (45-73); Red Cell Distribution Width 16.7 % (11.0-16.0); White Blood Count 4.6 X10*3/uL (4.8-10.8)
[2024-01-22 09:15] LABS: Platelet Count 78 X10*3/uL (160-400)
[2024-01-22 09:33] LABS: Anion Gap 15 (12-20); Blood Urea Nitrogen 28 mg/dL (9-16); Calcium 6.6 mg/dL (8.4-10.2); Carbon Dioxide 24 mmol/L (22-29); Chloride 95 mmol/L (96-108); Creatinine Clr Calc Pharmacy 16.1; Estimated Glomerular Filt Rate 9; Glucose Random 99 mg/dL (60-115); Potassium 3.3 mmol/L (3.3-5.1); Sodium 131 mmol/L (135-145)
--- NOTE | 2024-01-22 11:11 | HO.PM.IMPN ---
Subjective Subjective Date of Service: 01/22/24 Interval History: seen and examined this morning follow up for line infection, chronic wounds no overnight events plan for surgical debridement of left foot today in OR Review of Systems Review of Systems: Yes all other systems are reviewed and are negative Constitutional Constitutional: Denies chills and Denies fever(s) Cardiovascular Cardiovascular: Denies chest pain, Denies palpitations and Denies dyspnea Respiratory Respiratory: Denies cough and Denies dyspnea Endocrine Endocrine: Denies palpitations Physical Exam Vital Signs: Vital Signs: Last Vital Signs Temp 97.8 F 01/22/24 08:00 Pulse 75 01/22/24 08:00 Resp 18 01/22/24 08:00 BP 137/70 01/22/24 08:00 Pulse Ox 100 01/22/24 08:00 O2 Del Method Nasal Cannula 01/22/24 08:00 O2 Flow Rate 4 01/22/24 08:00 Oxygen Flow Rate 2 01/14/24 18:38 BMI result Body Mass Index 29.0 Const: General: comfortable, no acute distress, alert and awake Nutritional Appearance: average body habitus Orientation/consciousness: patient oriented x3 Resp: Effort & Inspection: normal respiratory effort, able to speak in complete sentences, no respiratory distress and no use of accessory muscles Cardio: Rate: regular rate GI: Inspection: No distended Palpation (GI): Soft to palpation and nontender Skin: Other: b/l feet wrapped in c/d/i dressings Neuro: General: patient oriented x3, moves all extremities and CN's II-XI intact bilaterally Extrem: Other: 1+edema b/l legs Objective Data Active Medications Acetaminophen (Acetaminophen 325 Mg Tablet) 650 mg PO Q6H PRN PRN Reason: Pain, Mild (Pain Scale 1-3), fever or headache Last Admin: 01/15/24 20:15 Dose: 650 mg Documented By: MONTEZ Calcitriol (Calcitriol Oral Soln 0.25 Mcg/0.25 Ml Solution) 0.25 mcg PO MoWeFr@0900 [facility] Last Admin: 01/21/24 11:52 Dose: Not Given Documented By: ARPIT Non-Admin Reason: Patient Refused Calcium Carbonate (Calcium Carbonate 750 Mg Tab.Chew) 750 mg PO Q4H PRN PRN Reason: Heartburn Last Admin: 01/20/24 11:56 Dose: 750 mg Documented By: YUE Carvedilol (Carvedilol 12.5 Mg Tablet) 12.5 mg PO BID [facility]; Protocol Last Admin: 01/22/24 08:53 Dose: 12.5 mg Documented By: DAE Glucose (Glucose Gel 15 Gm Gel..Gram.) 15 gm PO Q15M PRN; Protocol PRN Reason: per Hypoglycemia Standing Ord. Last Admin: 01/18/24 03:40 Dose: 15 gm Documented By: TIFFANIE Heparin Sodium (Porcine) (Heparin Sodium,Porcine 5,000 Unit/Ml Vial) 5,000 unit SUBCUT Q12H [facility] Last Admin: 01/22/24 08:55 Dose: Not Given Documented By: DAE Non-Admin Reason: Going for surgery Hydralazine HCl (Hydralazine Hcl 50 Mg Tablet) 50 mg PO TID [facility]; Protocol Last Admin: 01/22/24 08:53 Dose: 50 mg Documented By: DAE Hydromorphone HCl (Hydromorphone Hcl 1 Mg/Ml Syringe) 1 mg IVPUSH Q8H PRN; Protocol PRN Reason: Pain, Severe (Pain Scale 7-10) Last Admin: 01/22/24 04:11 Dose: 1 mg Documented By: KANDI Dextrose (D10) 250 mls @ 750 mls/hr IV Q15M PRN; Protocol PRN Reason: per Hypoglycemia Standing Ord. Last Infusion: 01/19/24 09:24 Dose: Infused Documented By: YUE Dextrose (D10) 1,000 mls @ 50 mls/hr IVCONT .Q20H [facility] Insulin Human Lispro (Insulin Lispro 100 Unit/Ml 3 Ml Vial) 0 unit SUBCUT QIDACHS [facility]; Protocol Last Admin: 01/22/24 08:49 Dose: Not Given Documented By: DAE Non-Admin Reason: No Insulin Coverage Lidocaine (Lidocaine 4 % Patch Adh..Patch) 1 patch TRANSDERMA DAILY [facility] Last Admin: 01/22/24 08:55 Dose: Not Given Documented By: DAE Non-Admin Reason: Patient Refused Magnesium Hydroxide (Milk Of Magnesia 30 Ml Oral.Susp) 30 ml PO DAILY PRN PRN Reason: Constipation Melatonin (Melatonin 3 Mg Tablet) 6 mg PO BEDTIME PRN PRN Reason: Insomnia Ondansetron HCl (Ondansetron Hcl 4 Mg/2 Ml Vial) 4 mg IVPUSH Q8H PRN PRN Reason: Nausea and Vomiting Last Admin: 01/21/24 20:14 Dose: 4 mg Documented By: KANDI Oxycodone HCl (Oxycodone Hcl Immed Release 5 Mg Tablet) 5 mg PO Q6H PRN PRN Reason: Pain, Moderate(Pain Scale 4-6) Sodium Chloride (0.9 % Sodium Chloride Flush 3 Ml Syringe) 3 ml IVFLUSH QSHIFT [facility] Last Admin: 01/22/24 08:55 Dose: 3 ml Documented By: DAE Trimethoprim/Sulfamethoxazole (Sulfamethox/Trimeth 400/80 Tablet) 1 tab PO DAILY [facility] Last Admin: 01/22/24 08:54 Dose: 1 tab Documented By: DAE Labs 01/22/24 08:58 01/22/24 08:58 Labs: Laboratory Results - last 24 hr 01/21/24 01/21/24 01/21/24 11:50 15:48 20:13 MCV MCH MCHC RDW Plt Count MPV Immature Gran % (Auto) Neut % (Auto) Lymph % (Auto) [place] % (Auto) Eos % (Auto) Baso % (Auto) Lymph # (Auto) [place] # (Auto) Eos # (Auto) Baso # (Auto) Abs Immat Gran (auto) Absolute Neuts (auto) Absolute Nucleated RBC Nucleated RBC % (auto) Anion Gap Estim Creat Clear Calc Estimated GFR POC Glucose 103 110 124 H Random Glucose Calcium 01/22/24 01/22/24 01/22/24 07:47 08:58 08:58 MCV 93.8 Cancelled MCH 30.0 MCHC RDW Plt Count MPV Immature Gran % (Auto) Neut % (Auto) Lymph % (Auto) [place] % (Auto) Eos % (Auto) Baso % (Auto) Lymph # (Auto) [place] # (Auto) Eos # (Auto) Baso # (Auto) Abs Immat Gran (auto) Absolute Neuts (auto) Absolute Nucleated RBC Nucleated RBC % (auto) Anion Gap Estim Creat Clear Calc Estimated GFR POC Glucose 79 Random Glucose Calcium 01/22/24 01/22/24 01/22/24 08:58 08:58 08:58 MCV MCH Cancelled MCHC 32.0 Cancelled RDW 16.7 H Cancelled Plt Count 78 L MPV Immature Gran % (Auto) Neut % (Auto) Lymph % (Auto) [place] % (Auto) Eos % (Auto) Baso % (Auto) Lymph # (Auto) [place] # (Auto) Eos # (Auto) Baso # (Auto) Abs Immat Gran (auto) Absolute Neuts (auto) Absolute Nucleated RBC Nucleated RBC % (auto) Anion Gap Estim Creat Clear Calc Estimated GFR POC Glucose Random Glucose Calcium 01/22/24 01/22/24 01/22/24 08:58 08:58 08:58 MCV MCH MCHC RDW Plt Count Cancelled MPV 12.5 H Cancelled Immature Gran % (Auto) 0.4 Cancelled Neut % (Auto) 68.5 Lymph % (Auto) [place] % (Auto) Eos % (Auto) Baso % (Auto) Lymph # (Auto) [place] # (Auto) Eos # (Auto) Baso # (Auto) Abs Immat Gran (auto) Absolute Neuts (auto) Absolute Nucleated RBC Nucleated RBC % (auto) Anion Gap Estim Creat Clear Calc Estimated GFR POC Glucose Random Glucose Calcium 01/22/24 01/22/24 01/22/24 08:58 08:58 08:58 MCV MCH MCHC RDW Plt Count MPV Immature Gran % (Auto) Neut % (Auto) Cancelled Lymph % (Auto) 14.[address] [place] % (Auto) 10.2 Cancelled Eos % (Auto) 5.4 H Baso % (Auto) Lymph # (Auto) [place] # (Auto) Eos # (Auto) Baso # (Auto) Abs Immat Gran (auto) Absolute Neuts (auto) Absolute Nucleated RBC Nucleated RBC % (auto) Anion Gap Estim Creat Clear Calc Estimated GFR POC Glucose Random Glucose Calcium 01/22/24 01/22/24 01/22/24 08:58 08:58 08:58 MCV MCH MCHC RDW Plt Count MPV Immature Gran % (Auto) Neut % (Auto) Lymph % (Auto) [place] % (Auto) Eos % (Auto) Cancelled Baso % (Auto) 0.7 Cancelled Lymph # (Auto) 0.[address] [place] # (Auto) 0.5 Eos # (Auto) Baso # (Auto) Abs Immat Gran (auto) Absolute Neuts (auto) Absolute Nucleated RBC Nucleated RBC % (auto) Anion Gap Estim Creat Clear Calc Estimated GFR POC Glucose Random Glucose Calcium 01/22/24 01/22/24 01/22/24 08:58 08:58 08:58 MCV MCH MCHC RDW Plt Count MPV Immature Gran % (Auto) Neut % (Auto) Lymph % (Auto) [place] % (Auto) Eos % (Auto) Baso % (Auto) Lymph # (Auto) [place] # (Auto) Cancelled Eos # (Auto) 0.3 Cancelled Baso # (Auto) 0.0 Cancelled Abs Immat Gran (auto) 0.02 Absolute Neuts (auto) Absolute Nucleated RBC Nucleated RBC % (auto) Anion Gap Estim Creat Clear Calc Estimated GFR POC Glucose Random Glucose Calcium 01/22/24 01/22/24 01/22/24 08:58 08:58 08:58 MCV MCH MCHC RDW Plt Count MPV Immature Gran % (Auto) Neut % (Auto) Lymph % (Auto) [place] % (Auto) Eos % (Auto) Baso % (Auto) Lymph # (Auto) [place] # (Auto) Eos # (Auto) Baso # (Auto) Abs Immat Gran (auto) Cancelled Absolute Neuts (auto) 3.2 Cancelled Absolute Nucleated RBC 0.000 Cancelled Nucleated RBC % (auto) 0.0 Anion Gap Estim Creat Clear Calc Estimated GFR POC Glucose Random Glucose Calcium 01/22/24 08:58 MCV MCH MCHC RDW Plt Count MPV Immature Gran % (Auto) Neut % (Auto) Lymph % (Auto) [place] % (Auto) Eos % (Auto) Baso % (Auto) Lymph # (Auto) 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 Central line bloodstream infection blood cultures from permcath growing stenotrophomonas maltophilia and acinetobacter peripheral blood cultures negative s/p permcath changeover 01/17 initially treated with IV Zosyn will transition to po bactrim for total 4 weeks ID following ESRD on hemodialysis Missed 1 week of dialysis prior to admission nephrology following had dialysis 01/14, RR called for unresponsiveness secondary to hypoglycemia, tx to ICU for hypotension, tx back to tele a few hours later HD as scheduled typically ,, schedule; refused HD on 01/18, last HD 01/20 Acute on chronic congestive heart failure with reduced ejection fraction with chronic hypoxia Due to noncompliance with hemodialysis. Given IV Lasix in the ER, receiving regular HD during hospitalization chronic b/l foot wounds left heel appears to be worsening seen by general surgery, unable to tolerate bedside debridement - plan for debridement in OR today 01/21 further management as per surgical team continue local wound care thrombocytopenia platelets trending down ? due to zosyn platelet level up and down in past zosyn stopped repeat today platelet level stable Hypertensive emergency in a patient with poorly controlled hypertension due to medication noncompliance continue hydralazine, coreg Wpt-[id number] diabetes mellitus with diabetic polyneuropathy/retinopathy with hypoglycemia hypoglycemia due to decreased po intake- resolved continues with decreased po intake but better, stable blood sugar will resume d10 while NPO awaiting surgical procedure Mood disorder Not on mood stabilizers CAD/cardiomyopathy On beta-mohamud. 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 H/H stable DVT prophylaxis: Heparin Attending Dr. Blanton Full code requires ongoing inpatient stay for surgical management due to worsening diabetic foot ulcers Quality Stroke Does the patient have a stroke diagnosis?: No VTE Prior VTE?: No VTE Risk Level:: Medical - moderate - high VTE Device Contraindication: Treatment Not Indicated VTE Drug Contraindication: N/A - Med Ordered
[2024-01-22 11:25] LABS: Glucose, Whole Blood 78 mg/dL (60-115)
[2024-01-22] MEDS: Dextrose 10 % 1,000 ML 50 ML IVCONT (11:31)
--- NOTE | 2024-01-22 12:40 | P.CONAN_ITS ---
HPI - Anesthesia Eval Consult details Narrative: 33 yo F presenting for left foot debridement. ESRD on HD - received Hd yesterday [facility] Active Problems Active Problems: All Active Problems Gastroparesis (Acute) Adj react-emotion NEC (Acute) End stage chronic kidney disease (Acute) Non-compliance with renal dialysis (Acute) Hypertensive emergency (Acute) Decompensated heart failure (Acute) Congestive heart failure (Acute) Renal failure (Acute) Bacteremia (Acute) Anemia (Acute) CLABSI (central line-associated bloodstream infection) (Acute) COVID-19 (Acute) Noncompliance (Acute) Back pain (Acute) Chronic foot ulcer (Acute) Chronic ulcer of right foot due to diabetes mellitus (Acute) Chronic ulcer of left foot due to diabetes mellitus (Acute) Hypertension, uncontrolled (Acute) Medical non-compliance (Acute) Opioid dependence (Acute) Chronic ulcer of left foot due to diabetes mellitus (Acute) Cerebral infarction (Acute) Hyponatremia (Acute) Prolonged QT interval (Acute) Pericarditis (Acute) Unspecified hypertension, condition or complication (Acute) Plantar ulcer of left foot (Acute) Renal failure (Acute) PAD (peripheral artery disease) (Acute) Past Medical History Medical History Gastroparesis End stage chronic kidney disease Chronic kidney disease Anemia Chronic foot ulcer Plantar ulcer of left foot Major depressive disorder, single episode, severe ESRD (end stage renal disease) Non-compliance with renal dialysis Hypertensive urgency MDD (major depressive disorder), recurrent episode MDD (major depressive disorder) Renal failure Foot ulcer CKD (chronic kidney disease) Hypertension Diabetic foot Hyperkalemia Vomiting Renal failure Hypertension Migraine Chronic pain ESRD on dialysis Non-compliance with renal dialysis Hypertension End-stage renal disease (ESRD) Diabetic foot ulcer associated with type 2 diabetes mellitus Hypertensive emergency Diabetes ESRD needing dialysis Cardiomyopathy HFrEF (heart failure with reduced ejection fraction) Metabolic acidosis delivery delivered Anemia in chronic kidney disease (CKD) CKD (chronic kidney disease) Headache, migraine Abnormal finding on echocardiogram Elevated troponin Chest pain Acute worsening of stage 3 chronic kidney disease Generalized edema Sepsis Cellulitis Pleural effusion CHF (congestive heart failure) (~06/07/22) Tachycardia Atypical chest pain Bone infection PAD (peripheral artery disease) Severe anemia Cellulitis and abscess of foot DM foot ulcer Osteomyelitis Asthma Depression with anxiety Diabetic retinopathy Type 2 diabetes mellitus with hyperglycemia, with long-term current use of insulin Blind right eye Diabetes Back pain Family History Family History Mother Coronary artery disease Myocardial infarction Stroke Diabetes mellitus Father Myocardial infarction Family history of problems with anesthesia: No Surgical History Surgical History Tubal ligation status Previous section Hx laparoscopic cholecystectomy Hx of surgical procedure (~09/11/23) 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 History of Problems with Anesthesia: No Social History Social History Household Members: Family Household Members Other:: Sister Housing: House Are you a primary clinical care coordinator to a significant other at home: No Do you presently have visiting nurse or other home services: No Unable to assess alcohol history related to: Unknown Alcohol intake: never Comment: Remain w/ pt on commode. Patient Tobacco Use Status: Never used Tobacco e-Cigarette/Vaping Use: Never Used Advance Directives Date on File: 08/28/23 service: No Current occupational status: unemployed and disabled Gender identity: Female Meds Allergies Allergy/AdvReac Type Severity Reaction Status Date / Time morphine [MORPHINE] Allergy Intermediate Itching Verified 01/22/24 12:00 azithromycin [From Zithromax] Allergy Hives Verified 01/22/24 12:00 gabapentin Allergy Facial Verified 01/22/24 12:00 Swelling tramadol Allergy Facial Verified 01/22/24 12:00 Swelling vancomycin Allergy Anaphylaxis Verified 01/22/24 12:00 Active Medications: Current Medications Acetaminophen (Acetaminophen 325 Mg Tablet) 650 mg PO Q6H PRN PRN Reason: Pain, Mild (Pain Scale 1-3), fever or headache Last Admin: 01/15/24 20:15 Dose: 650 mg Calcitriol (Calcitriol Oral Soln 0.25 Mcg/0.25 Ml Solution) 0.25 mcg PO [id number] VASILE Last Admin: 01/21/24 11:52 Dose: Not Given Calcium Carbonate (Calcium Carbonate 750 Mg Tab.Chew) 750 mg PO Q4H PRN PRN Reason: Heartburn Last Admin: 01/20/24 11:56 Dose: 750 mg Carvedilol (Carvedilol 12.5 Mg Tablet) 12.5 mg PO BID [facility]; Protocol Last Admin: 01/22/24 08:53 Dose: 12.5 mg Glucose (Glucose Gel 15 Gm Gel..Gram.) 15 gm PO Q15M PRN; Protocol PRN Reason: per Hypoglycemia Standing Ord. Last Admin: 01/18/24 03:40 Dose: 15 gm Heparin Sodium (Porcine) (Heparin Sodium,Porcine 5,000 Unit/Ml Vial) 5,000 unit SUBCUT Q12H [facility] Last Admin: 01/22/24 08:55 Dose: Not Given Hydralazine HCl (Hydralazine Hcl 50 Mg Tablet) 50 mg PO TID [facility]; Protocol Last Admin: 01/22/24 08:53 Dose: 50 mg Hydromorphone HCl (Hydromorphone Hcl 1 Mg/Ml Syringe) 1 mg IVPUSH Q8H PRN; Protocol PRN Reason: Pain, Severe (Pain Scale 7-10) Last Admin: 01/22/24 11:37 Dose: 1 mg Dextrose (D10) 250 mls @ 750 mls/hr IV Q15M PRN; Protocol PRN Reason: per Hypoglycemia Standing Ord. Last Infusion: 01/19/24 09:24 Dose: Infused Dextrose (D10) 1,000 mls @ 50 mls/hr IVCONT .Q20H [facility] Last Admin: 01/22/24 11:31 Dose: 50 mls/hr Cefazolin Sodium/Dextrose (Ancef) 2 gm in 50 mls @ 100 mls/hr IV PREOP ONE Stop: 01/22/24 13:04 Sodium Chloride (Ns) 1,000 mls @ 50 mls/hr IVCONT .Q20H [facility] Insulin Human Lispro (Insulin Lispro 100 Unit/Ml 3 Ml Vial) 0 unit SUBCUT QIDACHS [facility]; Protocol Last Admin: 01/22/24 11:24 Dose: Not Given Lidocaine (Lidocaine 4 % Patch Adh..Patch) 1 patch TRANSDERMA DAILY [facility] Last Admin: 01/22/24 08:55 Dose: Not Given Magnesium Hydroxide (Milk Of Magnesia 30 Ml Oral.Susp) 30 ml PO DAILY PRN PRN Reason: Constipation Melatonin (Melatonin 3 Mg Tablet) 6 mg PO BEDTIME PRN PRN Reason: Insomnia Ondansetron HCl (Ondansetron Hcl 4 Mg/2 Ml Vial) 4 mg IVPUSH Q8H PRN PRN Reason: Nausea and Vomiting Last Admin: 01/21/24 20:14 Dose: 4 mg Oxycodone HCl (Oxycodone Hcl Immed Release 5 Mg Tablet) 5 mg PO Q6H PRN PRN Reason: Pain, Moderate(Pain Scale 4-6) Sodium Chloride (0.9 % Sodium Chloride Flush 3 Ml Syringe) 3 ml IVFLUSH QSHIFT [facility] Last Admin: 01/22/24 08:55 Dose: 3 ml Trimethoprim/Sulfamethoxazole (Sulfamethox/Trimeth 400/80 Tablet) 1 tab PO DAILY [facility] Last Admin: 01/22/24 08:54 Dose: 1 tab Home Medications ?Medication ?Instructions ?Recorded ?Confirmed ?Last Taken ?Type albuterol sulfate 90 mcg/actuation 2 puff inhalation Q6H PRN wheezing 01/15/24 01/15/24 Unknown History aerosol inhaler (Ventolin HFA) lidocaine 5 % topical patch 1 patch topical DAILY 01/15/24 01/15/24 Unknown History nitroglycerin 0.4 mg sublingual 0.4 mg sublingual DIRECTED PRN 01/15/24 01/15/24 Unknown History tablet Angina oxycodone 5 mg tablet 5 mg PO Q8H PRN pain 01/15/24 01/15/24 Unknown History Exam Exam Date and Time: 01/22/24 Vital Signs Temperature 98.9 F 01/14/24 18:38 Pulse Rate 101 H 01/14/24 18:38 Respiratory Rate 20 01/14/24 18:38 Blood Pressure 198/106 H 01/14/24 18:38 Pulse Oximetry 93 01/14/24 18:38 Oxygen Delivery Method Nasal Cannula 01/14/24 18:38 Temperature 97.7 F 01/22/24 12:01 Pulse Rate 73 01/22/24 12:01 Respiratory Rate 16 01/22/24 12:01 Blood Pressure 134/75 01/22/24 12:01 Pulse Oximetry 98 01/22/24 12:01 Oxygen Delivery Method Nasal Cannula 01/22/24 12:01 Oxygen Flow Rate 3 01/22/24 12:01 Height 5 ft 6 in Weight 81.4 kg Height,Weight and Vital Signs: Height 5 ft 6 in Weight 81.4 kg Last Vital Signs Temp 97.7 F 01/22/24 12:01 Pulse 73 01/22/24 12:01 Resp 16 01/22/24 12:01 BP 134/75 01/22/24 12:01 Pulse Ox 98 01/22/24 12:01 O2 Del Method Nasal Cannula 01/22/24 12:01 O2 Flow Rate 3 01/22/24 12:01 Oxygen Flow Rate 2 01/14/24 18:38 Pertinent Lab Results Pertinent Lab Results: Laboratory Tests 01/14/24 01/14/24 01/14/24 19:39 19:44 19:44 WBC 7.2 RBC 2.77 L Hgb 8.5 L Hct 25.8 L MCV 93.1 MCH 30.7 MCHC 32.9 RDW 17.4 H Plt Count 150 L MPV 10.9 Immature Gran % (Auto) 0.4 Neut % (Auto) 84.6 H Lymph % (Auto) 6.1 L [place] % (Auto) 6.3 Eos % (Auto) 2.2 Baso % (Auto) 0.4 Lymph # (Auto) 0.4 L [place] # (Auto) 0.5 Eos # (Auto) 0.2 Baso # (Auto) 0.0 Abs Immat Gran (auto) 0.03 Absolute Neuts (auto) 6.1 Absolute Nucleated RBC 0.000 Nucleated RBC % (auto) 0.0 VBG pH VBG pCO2 VBG pO2 VBG HCO3 VBG O2 Saturation VBG Base Excess Sodium 137 Potassium 4.6 D Chloride 107 Carbon Dioxide 12 L Anion Gap 23 H BUN 112 H Creatinine 10.98 H* Estim Creat Clear Calc 7.4 Estimated GFR 4 POC Glucose 132 H Random Glucose 150 H Estimat Average Glucose Hemoglobin A1c % Calcium 6.7 L D 7.1 L Phosphorus 11.6 H Magnesium 3.0 H Total Bilirubin AST ALT Alkaline Phosphatase Troponin I High Sens Total Protein Albumin Beta HCG, Quant Urine Color Urine Appearance Urine pH Ur Specific [place] Urine Protein Urine Glucose (UA) Urine Ketones Urine Blood Urine Nitrite Ur Leukocyte Esterase Urine RBC Urine WBC Ur Squamous Epith Cells Urine Bacteria Hyaline Casts 01/14/24 01/14/24 01/15/24 19:44 19:48 04:59 WBC RBC Hgb Hct MCV MCH MCHC RDW Plt Count MPV Immature Gran % (Auto) Neut % (Auto) Lymph % (Auto) [place] % (Auto) Eos % (Auto) Baso % (Auto) Lymph # (Auto) [place] # (Auto) Eos # (Auto) Baso # (Auto) Abs Immat Gran (auto) Absolute Neuts (auto) Absolute Nucleated RBC Nucleated RBC % (auto) VBG pH 7.22 L VBG pCO2 28 VBG pO2 53 VBG HCO3 11 L VBG O2 Saturation 74.0 VBG Base Excess -14.4 Sodium Potassium Chloride Carbon Dioxide Anion Gap BUN Creatinine Estim Creat Clear Calc Estimated GFR POC Glucose Random Glucose Estimat Average Glucose Hemoglobin A1c % Calcium Phosphorus Magnesium 3.0 H Total Bilirubin 1.1 H AST 22 ALT 18 Alkaline Phosphatase 180 H Troponin I High Sens 25.6 H Total Protein 7.1 Albumin 3.5 Beta HCG, Quant < 2 Urine Color Yellow Urine Appearance Clear Urine pH 6.0 Ur Specific [place] 1.015 Urine Protein >=1000 (4+) H Urine Glucose (UA) 250 H Urine Ketones Negative Urine Blood Small (1+) H Urine Nitrite Negative Ur Leukocyte Esterase Negative Urine RBC 3-5 H Urine WBC 0-5 Ur Squamous Epith Cells 3-5 Urine Bacteria None Seen Hyaline Casts 0-2 01/15/24 01/15/24 01/15/24 06:57 10:38 11:39 WBC 4.6 L RBC 2.77 L Hgb 8.5 L Hct 25.6 L MCV 92.4 MCH 30.7 MCHC 33.2 RDW 17.5 H Plt Count 144 L MPV 11.5 Immature Gran % (Auto) Neut % (Auto) Lymph % (Auto) [place] % (Auto) Eos % (Auto) Baso % (Auto) Lymph # (Auto) [place] # (Auto) Eos # (Auto) Baso # (Auto) Abs Immat Gran (auto) Absolute Neuts (auto) Absolute Nucleated RBC 0.000 Nucleated RBC % (auto) 0.0 VBG pH VBG pCO2 VBG pO2 VBG HCO3 VBG O2 Saturation VBG Base Excess Sodium 140 Potassium 4.1 Chloride 103 Carbon Dioxide 16 L Anion Gap 25 H BUN 93 H Creatinine 8.11 H* Estim Creat Clear Calc 9.9 Estimated GFR 6 POC Glucose 105 35 L* Random Glucose 64 Estimat Average Glucose Hemoglobin A1c % Calcium 7.8 L D Phosphorus Magnesium Total Bilirubin AST ALT Alkaline Phosphatase Troponin I High Sens Total Protein Albumin Beta HCG, Quant Urine Color Urine Appearance Urine pH Ur Specific [place] Urine Protein Urine Glucose (UA) Urine Ketones Urine Blood Urine Nitrite Ur Leukocyte Esterase Urine RBC Urine WBC Ur Squamous Epith Cells Urine Bacteria Hyaline Casts 01/15/24 01/15/24 01/15/24 11:55 12:46 13:09 WBC RBC Hgb Hct MCV MCH MCHC RDW Plt Count MPV Immature Gran % (Auto) Neut % (Auto) Lymph % (Auto) [place] % (Auto) Eos % (Auto) Baso % (Auto) Lymph # (Auto) [place] # (Auto) Eos # (Auto) Baso # (Auto) Abs Immat Gran (auto) Absolute Neuts (auto) Absolute Nucleated RBC Nucleated RBC % (auto) VBG pH VBG pCO2 VBG pO2 VBG HCO3 VBG O2 Saturation VBG Base Excess Sodium Potassium Chloride Carbon Dioxide Anion Gap BUN Creatinine Estim Creat Clear Calc Estimated GFR POC Glucose 112 55 L* 128 H Random Glucose Estimat Average Glucose Hemoglobin A1c % Calcium Phosphorus Magnesium Total Bilirubin AST ALT Alkaline Phosphatase Troponin I High Sens Total Protein Albumin Beta HCG, Quant Urine Color Urine Appearance Urine pH Ur Specific [place] Urine Protein Urine Glucose (UA) Urine Ketones Urine Blood Urine Nitrite Ur Leukocyte Esterase Urine RBC Urine WBC Ur Squamous Epith Cells Urine Bacteria Hyaline Casts 01/15/24 01/15/24 01/15/24 13:39 14:16 15:29 WBC RBC Hgb Hct MCV MCH MCHC RDW Plt Count MPV Immature Gran % (Auto) Neut % (Auto) Lymph % (Auto) [place] % (Auto) Eos % (Auto) Baso % (Auto) Lymph # (Auto) [place] # (Auto) Eos # (Auto) Baso # (Auto) Abs Immat Gran (auto) Absolute Neuts (auto) Absolute Nucleated RBC Nucleated RBC % (auto) VBG pH VBG pCO2 VBG pO2 VBG HCO3 VBG O2 Saturation VBG Base Excess Sodium Potassium Chloride Carbon Dioxide Anion Gap BUN Creatinine Estim Creat Clear Calc Estimated GFR POC Glucose 74 77 72 Random Glucose Estimat Average Glucose Hemoglobin A1c % Calcium Phosphorus Magnesium Total Bilirubin AST ALT Alkaline Phosphatase Troponin I High Sens Total Protein Albumin Beta HCG, Quant Urine Color Urine Appearance Urine pH Ur Specific [place] Urine Protein Urine Glucose (UA) Urine Ketones Urine Blood Urine Nitrite Ur Leukocyte Esterase Urine RBC Urine WBC Ur Squamous Epith Cells Urine Bacteria Hyaline Casts 01/15/24 01/15/24 01/15/24 16:19 18:19 19:21 WBC RBC Hgb Hct MCV MCH MCHC RDW Plt Count MPV Immature Gran % (Auto) Neut % (Auto) Lymph % (Auto) [place] % (Auto) Eos % (Auto) Baso % (Auto) Lymph # (Auto) [place] # (Auto) Eos # (Auto) Baso # (Auto) Abs Immat Gran (auto) Absolute Neuts (auto) Absolute Nucleated RBC Nucleated RBC % (auto) VBG pH VBG pCO2 VBG pO2 VBG HCO3 VBG O2 Saturation VBG Base Excess Sodium Potassium Chloride Carbon Dioxide Anion Gap BUN Creatinine Estim Creat Clear Calc Estimated GFR POC Glucose 78 74 69 Random Glucose Estimat Average Glucose Hemoglobin A1c % Calcium Phosphorus Magnesium Total Bilirubin AST ALT Alkaline Phosphatase Troponin I High Sens Total Protein Albumin Beta HCG, Quant Urine Color Urine Appearance Urine pH Ur Specific [place] Urine Protein Urine Glucose (UA) Urine Ketones Urine Blood Urine Nitrite Ur Leukocyte Esterase Urine RBC Urine WBC Ur Squamous Epith Cells Urine Bacteria Hyaline Casts 01/15/24 01/15/24 01/15/24 19:54 21:03 23:20 WBC RBC Hgb Hct MCV MCH MCHC RDW Plt Count MPV Immature Gran % (Auto) Neut % (Auto) Lymph % (Auto) [place] % (Auto) Eos % (Auto) Baso % (Auto) Lymph # (Auto) [place] # (Auto) Eos # (Auto) Baso # (Auto) Abs Immat Gran (auto) Absolute Neuts (auto) Absolute Nucleated RBC Nucleated RBC % (auto) VBG pH VBG pCO2 VBG pO2 VBG HCO3 VBG O2 Saturation VBG Base Excess Sodium Potassium Chloride Carbon Dioxide Anion Gap BUN Creatinine Estim Creat Clear Calc Estimated GFR POC Glucose 153 H 81 62 Random Glucose Estimat Average Glucose Hemoglobin A1c % Calcium Phosphorus Magnesium Total Bilirubin AST ALT Alkaline Phosphatase Troponin I High Sens Total Protein Albumin Beta HCG, Quant Urine Color Urine Appearance Urine pH Ur Specific [place] Urine Protein Urine Glucose (UA) Urine Ketones Urine Blood Urine Nitrite Ur Leukocyte Esterase Urine RBC Urine WBC Ur Squamous Epith Cells Urine Bacteria Hyaline Casts 01/16/24 01/16/24 01/16/24 00:06 02:19 04:10 WBC RBC Hgb Hct MCV MCH MCHC RDW Plt Count MPV Immature Gran % (Auto) Neut % (Auto) Lymph % (Auto) [place] % (Auto) Eos % (Auto) Baso % (Auto) Lymph # (Auto) [place] # (Auto) Eos # (Auto) Baso # (Auto) Abs Immat Gran (auto) Absolute Neuts (auto) Absolute Nucleated RBC Nucleated RBC % (auto) VBG pH VBG pCO2 VBG pO2 VBG HCO3 VBG O2 Saturation VBG Base Excess Sodium Potassium Chloride Carbon Dioxide Anion Gap BUN Creatinine Estim Creat Clear Calc Estimated GFR POC Glucose 113 75 76 Random Glucose Estimat Average Glucose Hemoglobin A1c % Calcium Phosphorus Magnesium Total Bilirubin AST ALT Alkaline Phosphatase Troponin I High Sens Total Protein Albumin Beta HCG, Quant Urine Color Urine Appearance Urine pH Ur Specific [place] Urine Protein Urine Glucose (UA) Urine Ketones Urine Blood Urine Nitrite Ur Leukocyte Esterase Urine RBC Urine WBC Ur Squamous Epith Cells Urine Bacteria Hyaline Casts 01/16/24 01/16/24 01/16/24 05:59 07:31 08:30 WBC RBC Hgb Hct MCV MCH MCHC RDW Plt Count MPV Immature Gran % (Auto) Neut % (Auto) Lymph % (Auto) [place] % (Auto) Eos % (Auto) Baso % (Auto) Lymph # (Auto) [place] # (Auto) Eos # (Auto) Baso # (Auto) Abs Immat Gran (auto) Absolute Neuts (auto) Absolute Nucleated RBC Nucleated RBC % (auto) VBG pH VBG pCO2 VBG pO2 VBG HCO3 VBG O2 Saturation VBG Base Excess Sodium Potassium Chloride Carbon Dioxide Anion Gap BUN Creatinine Estim Creat Clear Calc Estimated GFR POC Glucose 66 72 65 Random Glucose Estimat Average Glucose Hemoglobin A1c % Calcium Phosphorus Magnesium Total Bilirubin AST ALT Alkaline Phosphatase Troponin I High Sens Total Protein Albumin Beta HCG, Quant Urine Color Urine Appearance Urine pH Ur Specific [place] Urine Protein Urine Glucose (UA) Urine Ketones Urine Blood Urine Nitrite Ur Leukocyte Esterase Urine RBC Urine WBC Ur Squamous Epith Cells Urine Bacteria Hyaline Casts 01/16/24 01/16/24 01/16/24 10:12 11:08 13:51 WBC RBC Hgb Hct MCV MCH MCHC RDW Plt Count MPV Immature Gran % (Auto) Neut % (Auto) Lymph % (Auto) [place] % (Auto) Eos % (Auto) Baso % (Auto) Lymph # (Auto) [place] # (Auto) Eos # (Auto) Baso # (Auto) Abs Immat Gran (auto) Absolute Neuts (auto) Absolute Nucleated RBC Nucleated RBC % (auto) VBG pH VBG pCO2 VBG pO2 VBG HCO3 VBG O2 Saturation VBG Base Excess Sodium Potassium Chloride Carbon Dioxide Anion Gap BUN Creatinine Estim Creat Clear Calc Estimated GFR POC Glucose 67 162 H 95 Random Glucose Estimat Average Glucose Hemoglobin A1c % Calcium Phosphorus Magnesium Total Bilirubin AST ALT Alkaline Phosphatase Troponin I High Sens Total Protein Albumin Beta HCG, Quant Urine Color Urine Appearance Urine pH Ur Specific [place] Urine Protein Urine Glucose (UA) Urine Ketones Urine Blood Urine Nitrite Ur Leukocyte Esterase Urine RBC Urine WBC Ur Squamous Epith Cells Urine Bacteria Hyaline Casts 01/16/24 01/16/24 01/16/24 15:38 17:23 20:13 WBC RBC Hgb Hct MCV MCH MCHC RDW Plt Count MPV Immature Gran % (Auto) Neut % (Auto) Lymph % (Auto) [place] % (Auto) Eos % (Auto) Baso % (Auto) Lymph # (Auto) [place] # (Auto) Eos # (Auto) Baso # (Auto) Abs Immat Gran (auto) Absolute Neuts (auto) Absolute Nucleated RBC Nucleated RBC % (auto) VBG pH VBG pCO2 VBG pO2 VBG HCO3 VBG O2 Saturation VBG Base Excess Sodium Potassium Chloride Carbon Dioxide Anion Gap BUN Creatinine Estim Creat Clear Calc Estimated GFR POC Glucose 71 75 136 H Random Glucose Estimat Average Glucose Hemoglobin A1c % Calcium Phosphorus Magnesium Total Bilirubin AST ALT Alkaline Phosphatase Troponin I High Sens Total Protein Albumin Beta HCG, Quant Urine Color Urine Appearance Urine pH Ur Specific [place] Urine Protein Urine Glucose (UA) Urine Ketones Urine Blood Urine Nitrite Ur Leukocyte Esterase Urine RBC Urine WBC Ur Squamous Epith Cells Urine Bacteria Hyaline Casts 01/17/24 01/17/24 01/17/24 03:38 07:06 09:53 WBC RBC Hgb Hct MCV MCH MCHC RDW Plt Count MPV Immature Gran % (Auto) Neut % (Auto) Lymph % (Auto) [place] % (Auto) Eos % (Auto) Baso % (Auto) Lymph # (Auto) [place] # (Auto) Eos # (Auto) Baso # (Auto) Abs Immat Gran (auto) Absolute Neuts (auto) Absolute Nucleated RBC Nucleated RBC % (auto) VBG pH VBG pCO2 VBG pO2 VBG HCO3 VBG O2 Saturation VBG Base Excess Sodium Potassium Chloride Carbon Dioxide Anion Gap BUN Creatinine Estim Creat Clear Calc Estimated GFR POC Glucose 110 86 94 Random Glucose Estimat Average Glucose Hemoglobin A1c % Calcium Phosphorus Magnesium Total Bilirubin AST ALT Alkaline Phosphatase Troponin I High Sens Total Protein Albumin Beta HCG, Quant Urine Color Urine Appearance Urine pH Ur Specific [place] Urine Protein Urine Glucose (UA) Urine Ketones Urine Blood Urine Nitrite Ur Leukocyte Esterase Urine RBC Urine WBC Ur Squamous Epith Cells Urine Bacteria Hyaline Casts 01/17/24 01/17/24 01/17/24 11:50 12:41 15:58 WBC RBC Hgb Hct MCV MCH MCHC RDW Plt Count MPV Immature Gran % (Auto) Neut % (Auto) Lymph % (Auto) [place] % (Auto) Eos % (Auto) Baso % (Auto) Lymph # (Auto) [place] # (Auto) Eos # (Auto) Baso # (Auto) Abs Immat Gran (auto) Absolute Neuts (auto) Absolute Nucleated RBC Nucleated RBC % (auto) VBG pH VBG pCO2 VBG pO2 VBG HCO3 VBG O2 Saturation VBG Base Excess Sodium 130 L Potassium 3.6 Chloride 95 L Carbon Dioxide 22 Anion Gap 17 BUN 53 H Creatinine 6.03 H* Estim Creat Clear Calc 13.9 Estimated GFR 8 POC Glucose 103 92 Random Glucose 121 H Estimat Average Glucose Hemoglobin A1c % Calcium 7.7 L Phosphorus Magnesium Total Bilirubin AST ALT Alkaline Phosphatase Troponin I High Sens Total Protein Albumin Beta HCG, Quant Urine Color Urine Appearance Urine pH Ur Specific [place] Urine Protein Urine Glucose (UA) Urine Ketones Urine Blood Urine Nitrite Ur Leukocyte Esterase Urine RBC Urine WBC Ur Squamous Epith Cells Urine Bacteria Hyaline Casts 01/17/24 01/18/24 01/18/24 19:33 00:16 03:34 WBC RBC Hgb Hct MCV MCH MCHC RDW Plt Count MPV Immature Gran % (Auto) Neut % (Auto) Lymph % (Auto) [place] % (Auto) Eos % (Auto) Baso % (Auto) Lymph # (Auto) [place] # (Auto) Eos # (Auto) Baso # (Auto) Abs Immat Gran (auto) Absolute Neuts (auto) Absolute Nucleated RBC Nucleated RBC % (auto) VBG pH VBG pCO2 VBG pO2 VBG HCO3 VBG O2 Saturation VBG Base Excess Sodium Potassium Chloride Carbon Dioxide Anion Gap BUN Creatinine Estim Creat Clear Calc Estimated GFR POC Glucose 89 84 66 Random Glucose Estimat Average Glucose Hemoglobin A1c % Calcium Phosphorus Magnesium Total Bilirubin AST ALT Alkaline Phosphatase Troponin I High Sens Total Protein Albumin Beta HCG, Quant Urine Color Urine Appearance Urine pH Ur Specific [place] Urine Protein Urine Glucose (UA) Urine Ketones Urine Blood Urine Nitrite Ur Leukocyte Esterase Urine RBC Urine WBC Ur Squamous Epith Cells Urine Bacteria Hyaline Casts 01/18/24 01/18/24 01/18/24 04:07 04:43 08:15 WBC RBC Hgb Hct MCV MCH MCHC RDW Plt Count MPV Immature Gran % (Auto) Neut % (Auto) Lymph % (Auto) [place] % (Auto) Eos % (Auto) Baso % (Auto) Lymph # (Auto) [place] # (Auto) Eos # (Auto) Baso # (Auto) Abs Immat Gran (auto) Absolute Neuts (auto) Absolute Nucleated RBC Nucleated RBC % (auto) VBG pH VBG pCO2 VBG pO2 VBG HCO3 VBG O2 Saturation VBG Base Excess Sodium Potassium Chloride Carbon Dioxide Anion Gap BUN Creatinine Estim Creat Clear Calc Estimated GFR POC Glucose 67 90 85 Random Glucose Estimat Average Glucose Hemoglobin A1c % Calcium Phosphorus Magnesium Total Bilirubin AST ALT Alkaline Phosphatase Troponin I High Sens Total Protein Albumin Beta HCG, Quant Urine Color Urine Appearance Urine pH Ur Specific [place] Urine Protein Urine Glucose (UA) Urine Ketones Urine Blood Urine Nitrite Ur Leukocyte Esterase Urine RBC Urine WBC Ur Squamous Epith Cells Urine Bacteria Hyaline Casts 01/18/24 01/18/24 01/18/24 11:19 15:30 19:59 WBC RBC Hgb Hct MCV MCH MCHC RDW Plt Count MPV Immature Gran % (Auto) Neut % (Auto) Lymph % (Auto) [place] % (Auto) Eos % (Auto) Baso % (Auto) Lymph # (Auto) [place] # (Auto) Eos # (Auto) Baso # (Auto) Abs Immat Gran (auto) Absolute Neuts (auto) Absolute Nucleated RBC Nucleated RBC % (auto) VBG pH VBG pCO2 VBG pO2 VBG HCO3 VBG O2 Saturation VBG Base Excess Sodium Potassium Chloride Carbon Dioxide Anion Gap BUN Creatinine Estim Creat Clear Calc Estimated GFR POC Glucose 134 H 73 62 Random Glucose Estimat Average Glucose Hemoglobin A1c % Calcium Phosphorus Magnesium Total Bilirubin AST ALT Alkaline Phosphatase Troponin I High Sens Total Protein Albumin Beta HCG, Quant Urine Color Urine Appearance Urine pH Ur Specific [place] Urine Protein Urine Glucose (UA) Urine Ketones Urine Blood Urine Nitrite Ur Leukocyte Esterase Urine RBC Urine WBC Ur Squamous Epith Cells Urine Bacteria Hyaline Casts 01/18/24 01/18/24 01/19/24 21:25 23:32 03:32 WBC RBC Hgb Hct MCV MCH MCHC RDW Plt Count MPV Immature Gran % (Auto) Neut % (Auto) Lymph % (Auto) [place] % (Auto) Eos % (Auto) Baso % (Auto) Lymph # (Auto) [place] # (Auto) Eos # (Auto) Baso # (Auto) Abs Immat Gran (auto) Absolute Neuts (auto) Absolute Nucleated RBC Nucleated RBC % (auto) VBG pH VBG pCO2 VBG pO2 VBG HCO3 VBG O2 Saturation VBG Base Excess Sodium Potassium Chloride Carbon Dioxide Anion Gap BUN Creatinine Estim Creat Clear Calc Estimated GFR POC Glucose 102 68 69 Random Glucose Estimat Average Glucose Hemoglobin A1c % Calcium Phosphorus Magnesium Total Bilirubin AST ALT Alkaline Phosphatase Troponin I High Sens Total Protein Albumin Beta HCG, Quant Urine Color Urine Appearance Urine pH Ur Specific [place] Urine Protein Urine Glucose (UA) Urine Ketones Urine Blood Urine Nitrite Ur Leukocyte Esterase Urine RBC Urine WBC Ur Squamous Epith Cells Urine Bacteria Hyaline Casts 01/19/24 01/19/24 01/19/24 07:47 11:48 16:09 WBC RBC Hgb Hct MCV MCH MCHC RDW Plt Count MPV Immature Gran % (Auto) Neut % (Auto) Lymph % (Auto) [place] % (Auto) Eos % (Auto) Baso % (Auto) Lymph # (Auto) [place] # (Auto) Eos # (Auto) Baso # (Auto) Abs Immat Gran (auto) Absolute Neuts (auto) Absolute Nucleated RBC Nucleated RBC % (auto) VBG pH VBG pCO2 VBG pO2 VBG HCO3 VBG O2 Saturation VBG Base Excess Sodium Potassium Chloride Carbon Dioxide Anion Gap BUN Creatinine Estim Creat Clear Calc Estimated GFR POC Glucose 65 79 83 Random Glucose Estimat Average Glucose Hemoglobin A1c % Calcium Phosphorus Magnesium Total Bilirubin AST ALT Alkaline Phosphatase Troponin I High Sens Total Protein Albumin Beta HCG, Quant Urine Color Urine Appearance Urine pH Ur Specific [place] Urine Protein Urine Glucose (UA) Urine Ketones Urine Blood Urine Nitrite Ur Leukocyte Esterase Urine RBC Urine WBC Ur Squamous Epith Cells Urine Bacteria Hyaline Casts 01/19/24 01/19/24 01/20/24 20:04 23:59 08:05 WBC RBC Hgb Hct MCV MCH MCHC RDW Plt Count MPV Immature Gran % (Auto) Neut % (Auto) Lymph % (Auto) [place] % (Auto) Eos % (Auto) Baso % (Auto) Lymph # (Auto) [place] # (Auto) Eos # (Auto) Baso # (Auto) Abs Immat Gran (auto) Absolute Neuts (auto) Absolute Nucleated RBC Nucleated RBC % (auto) VBG pH VBG pCO2 VBG pO2 VBG HCO3 VBG O2 Saturation VBG Base Excess Sodium Potassium Chloride Carbon Dioxide Anion Gap BUN Creatinine Estim Creat Clear Calc Estimated GFR POC Glucose 105 80 70 Random Glucose Estimat Average Glucose Hemoglobin A1c % Calcium Phosphorus Magnesium Total Bilirubin AST ALT Alkaline Phosphatase Troponin I High Sens Total Protein Albumin Beta HCG, Quant Urine Color Urine Appearance Urine pH Ur Specific [place] Urine Protein Urine Glucose (UA) Urine Ketones Urine Blood Urine Nitrite Ur Leukocyte Esterase Urine RBC Urine WBC Ur Squamous Epith Cells Urine Bacteria Hyaline Casts 01/20/24 01/20/24 01/20/24 11:12 11:58 16:28 WBC 4.3 L RBC 2.72 L Hgb 8.3 L Hct 25.2 L MCV 92.6 MCH 30.5 MCHC 32.9 RDW 16.7 H Plt Count 77 L D MPV 12.3 Immature Gran % (Auto) Neut % (Auto) Lymph % (Auto) [place] % (Auto) Eos % (Auto) Baso % (Auto) Lymph # (Auto) [place] # (Auto) Eos # (Auto) Baso # (Auto) Abs Immat Gran (auto) Absolute Neuts (auto) Absolute Nucleated RBC 0.000 Nucleated RBC % (auto) 0.0 VBG pH VBG pCO2 VBG pO2 VBG HCO3 VBG O2 Saturation VBG Base Excess Sodium 132 L Potassium 3.4 Chloride 96 Carbon Dioxide 21 L Anion Gap 18 BUN 39 H Creatinine 6.57 H* Estim Creat Clear Calc 12.8 Estimated GFR 7 POC Glucose 113 107 Random Glucose 111 Estimat Average Glucose 100 Hemoglobin A1c % 5.1 Calcium 7.7 L Phosphorus Magnesium Total Bilirubin AST ALT Alkaline Phosphatase Troponin I High Sens Total Protein Albumin Beta HCG, Quant Urine Color Urine Appearance Urine pH Ur Specific [place] Urine Protein Urine Glucose (UA) Urine Ketones Urine Blood Urine Nitrite Ur Leukocyte Esterase Urine RBC Urine WBC Ur Squamous Epith Cells Urine Bacteria Hyaline Casts 01/20/24 01/21/24 01/21/24 20:07 04:13 07:46 WBC RBC Hgb Hct MCV MCH MCHC RDW Plt Count MPV Immature Gran % (Auto) Neut % (Auto) Lymph % (Auto) [place] % (Auto) Eos % (Auto) Baso % (Auto) Lymph # (Auto) [place] # (Auto) Eos # (Auto) Baso # (Auto) Abs Immat Gran (auto) Absolute Neuts (auto) Absolute Nucleated RBC Nucleated RBC % (auto) VBG pH VBG pCO2 VBG pO2 VBG HCO3 VBG O2 Saturation VBG Base Excess Sodium Potassium Chloride Carbon Dioxide Anion Gap BUN Creatinine Estim Creat Clear Calc Estimated GFR POC Glucose 127 H 80 77 Random Glucose Estimat Average Glucose Hemoglobin A1c % Calcium Phosphorus Magnesium Total Bilirubin AST ALT Alkaline Phosphatase Troponin I High Sens Total Protein Albumin Beta HCG, Quant Urine Color Urine Appearance Urine pH Ur Specific [place] Urine Protein Urine Glucose (UA) Urine Ketones Urine Blood Urine Nitrite Ur Leukocyte Esterase Urine RBC Urine WBC Ur Squamous Epith Cells Urine Bacteria Hyaline Casts 01/21/24 01/21/24 01/21/24 11:50 15:48 20:13 WBC RBC Hgb Hct MCV MCH MCHC RDW Plt Count MPV Immature Gran % (Auto) Neut % (Auto) Lymph % (Auto) [place] % (Auto) Eos % (Auto) Baso % (Auto) Lymph # (Auto) [place] # (Auto) Eos # (Auto) Baso # (Auto) Abs Immat Gran (auto) Absolute Neuts (auto) Absolute Nucleated RBC Nucleated RBC % (auto) VBG pH VBG pCO2 VBG pO2 VBG HCO3 VBG O2 Saturation VBG Base Excess Sodium Potassium Chloride Carbon Dioxide Anion Gap BUN Creatinine Estim Creat Clear Calc Estimated GFR POC Glucose 103 110 124 H Random Glucose Estimat Average Glucose Hemoglobin A1c % Calcium Phosphorus Magnesium Total Bilirubin AST ALT Alkaline Phosphatase Troponin I High Sens Total Protein Albumin Beta HCG, Quant Urine Color Urine Appearance Urine pH Ur Specific [place] Urine Protein Urine Glucose (UA) Urine Ketones Urine Blood Urine Nitrite Ur Leukocyte Esterase Urine RBC Urine WBC Ur Squamous Epith Cells Urine Bacteria Hyaline Casts 01/22/24 01/22/24 01/22/24 07:47 08:58 08:58 WBC 4.6 L Cancelled RBC 2.60 L Hgb Hct MCV MCH MCHC RDW Plt Count MPV Immature Gran % (Auto) Neut % (Auto) Lymph % (Auto) [place] % (Auto) Eos % (Auto) Baso % (Auto) Lymph # (Auto) [place] # (Auto) Eos # (Auto) Baso # (Auto) Abs Immat Gran (auto) Absolute Neuts (auto) Absolute Nucleated RBC Nucleated RBC % (auto) VBG pH VBG pCO2 VBG pO2 VBG HCO3 VBG O2 Saturation VBG Base Excess Sodium Potassium Chloride Carbon Dioxide Anion Gap BUN Creatinine Estim Creat Clear Calc Estimated GFR POC Glucose 79 Random Glucose Estimat Average Glucose Hemoglobin A1c % Calcium Phosphorus Magnesium Total Bilirubin AST ALT Alkaline Phosphatase Troponin I High Sens Total Protein Albumin Beta HCG, Quant Urine Color Urine Appearance Urine pH Ur Specific [place] Urine Protein Urine Glucose (UA) Urine Ketones Urine Blood Urine Nitrite Ur Leukocyte Esterase Urine RBC Urine WBC Ur Squamous Epith Cells Urine Bacteria Hyaline Casts 01/22/24 01/22/24 01/22/24 08:58 08:58 08:58 WBC RBC Cancelled Hgb 7.8 L Cancelled Hct 24.4 L Cancelled MCV 93.8 MCH MCHC RDW Plt Count MPV Immature Gran % (Auto) Neut % (Auto) Lymph % (Auto) [place] % (Auto) Eos % (Auto) Baso % (Auto) Lymph # (Auto) [place] # (Auto) Eos # (Auto) Baso # (Auto) Abs Immat Gran (auto) Absolute Neuts (auto) Absolute Nucleated RBC Nucleated RBC % (auto) VBG pH VBG pCO2 VBG pO2 VBG HCO3 VBG O2 Saturation VBG Base Excess Sodium Potassium Chloride Carbon Dioxide Anion Gap BUN Creatinine Estim Creat Clear Calc Estimated GFR POC Glucose Random Glucose Estimat Average Glucose Hemoglobin A1c % Calcium Phosphorus Magnesium Total Bilirubin AST ALT Alkaline Phosphatase Troponin I High Sens Total Protein Albumin Beta HCG, Quant Urine Color Urine Appearance Urine pH Ur Specific [place] Urine Protein Urine Glucose (UA) Urine Ketones Urine Blood Urine Nitrite Ur Leukocyte Esterase Urine RBC Urine WBC Ur Squamous Epith Cells Urine Bacteria Hyaline Casts 01/22/24 01/22/24 01/22/24 08:58 08:58 08:58 WBC RBC Hgb Hct MCV Cancelled MCH 30.0 Cancelled MCHC 32.0 Cancelled RDW 16.7 H Plt Count MPV Immature Gran % (Auto) Neut % (Auto) Lymph % (Auto) [place] % (Auto) Eos % (Auto) Baso % (Auto) Lymph # (Auto) [place] # (Auto) Eos # (Auto) Baso # (Auto) Abs Immat Gran (auto) Absolute Neuts (auto) Absolute Nucleated RBC Nucleated RBC % (auto) VBG pH VBG pCO2 VBG pO2 VBG HCO3 VBG O2 Saturation VBG Base Excess Sodium Potassium Chloride Carbon Dioxide Anion Gap BUN Creatinine Estim Creat Clear Calc Estimated GFR POC Glucose Random Glucose Estimat Average Glucose Hemoglobin A1c % Calcium Phosphorus Magnesium Total Bilirubin AST ALT Alkaline Phosphatase Troponin I High Sens Total Protein Albumin Beta HCG, Quant Urine Color Urine Appearance Urine pH Ur Specific [place] Urine Protein Urine Glucose (UA) Urine Ketones Urine Blood Urine Nitrite Ur Leukocyte Esterase Urine RBC Urine WBC Ur Squamous Epith Cells Urine Bacteria Hyaline Casts 01/22/24 01/22/24 01/22/24 08:58 08:58 08:58 WBC RBC Hgb Hct MCV MCH MCHC RDW Cancelled Plt Count 78 L Cancelled MPV 12.5 H Cancelled Immature Gran % (Auto) 0.4 Neut % (Auto) Lymph % (Auto) [place] % (Auto) Eos % (Auto) Baso % (Auto) Lymph # (Auto) [place] # (Auto) Eos # (Auto) Baso # (Auto) Abs Immat Gran (auto) Absolute Neuts (auto) Absolute Nucleated RBC Nucleated RBC % (auto) VBG pH VBG pCO2 VBG pO2 VBG HCO3 VBG O2 Saturation VBG Base Excess Sodium Potassium Chloride Carbon Dioxide Anion Gap BUN Creatinine Estim Creat Clear Calc Estimated GFR POC Glucose Random Glucose Estimat Average Glucose Hemoglobin A1c % Calcium Phosphorus Magnesium Total Bilirubin AST ALT Alkaline Phosphatase Troponin I High Sens Total Protein Albumin Beta HCG, Quant Urine Color Urine Appearance Urine pH Ur Specific [place] Urine Protein Urine Glucose (UA) Urine Ketones Urine Blood Urine Nitrite Ur Leukocyte Esterase Urine RBC Urine WBC Ur Squamous Epith Cells Urine Bacteria Hyaline Casts 01/22/24 01/22/24 01/22/24 08:58 08:58 08:58 WBC RBC Hgb Hct MCV MCH MCHC RDW Plt Count MPV Immature Gran % (Auto) Cancelled Neut % (Auto) 68.5 Cancelled Lymph % (Auto) 14.8 L Cancelled [place] % (Auto) 10.2 Eos % (Auto) Baso % (Auto) Lymph # (Auto) [place] # (Auto) Eos # (Auto) Baso # (Auto) Abs Immat Gran (auto) Absolute Neuts (auto) Absolute Nucleated RBC Nucleated RBC % (auto) VBG pH VBG pCO2 VBG pO2 VBG HCO3 VBG O2 Saturation VBG Base Excess Sodium Potassium Chloride Carbon Dioxide Anion Gap BUN Creatinine Estim Creat Clear Calc Estimated GFR POC Glucose Random Glucose Estimat Average Glucose Hemoglobin A1c % Calcium Phosphorus Magnesium Total Bilirubin AST ALT Alkaline Phosphatase Troponin I High Sens Total Protein Albumin Beta HCG, Quant Urine Color Urine Appearance Urine pH Ur Specific [place] Urine Protein Urine Glucose (UA) Urine Ketones Urine Blood Urine Nitrite Ur Leukocyte Esterase Urine RBC Urine WBC Ur Squamous Epith Cells Urine Bacteria Hyaline Casts 01/22/24 01/22/24 01/22/24 08:58 08:58 08:58 WBC RBC Hgb Hct MCV MCH MCHC RDW Plt Count MPV Immature Gran % (Auto) Neut % (Auto) Lymph % (Auto) [place] % (Auto) Cancelled Eos % (Auto) 5.4 H Cancelled Baso % (Auto) 0.7 Cancelled Lymph # (Auto) 0.7 L [place] # (Auto) Eos # (Auto) Baso # (Auto) Abs Immat Gran (auto) Absolute Neuts (auto) Absolute Nucleated RBC Nucleated RBC % (auto) VBG pH VBG pCO2 VBG pO2 VBG HCO3 VBG O2 Saturation VBG Base Excess Sodium Potassium Chloride Carbon Dioxide Anion Gap BUN Creatinine Estim Creat Clear Calc Estimated GFR POC Glucose Random Glucose Estimat Average Glucose Hemoglobin A1c % Calcium Phosphorus Magnesium Total Bilirubin AST ALT Alkaline Phosphatase Troponin I High Sens Total Protein Albumin Beta HCG, Quant Urine Color Urine Appearance Urine pH Ur Specific [place] Urine Protein Urine Glucose (UA) Urine Ketones Urine Blood Urine Nitrite Ur Leukocyte Esterase Urine RBC Urine WBC Ur Squamous Epith Cells Urine Bacteria Hyaline Casts 01/22/24 01/22/24 01/22/24 08:58 08:58 08:58 WBC RBC Hgb Hct MCV MCH MCHC RDW Plt Count MPV Immature Gran % (Auto) Neut % (Auto) Lymph % (Auto) [place] % (Auto) Eos % (Auto) Baso % (Auto) Lymph # (Auto) Cancelled [place] # (Auto) 0.5 Cancelled Eos # (Auto) 0.3 Cancelled Baso # (Auto) 0.0 Abs Immat Gran (auto) Absolute Neuts (auto) Absolute Nucleated RBC Nucleated RBC % (auto) VBG pH VBG pCO2 VBG pO2 VBG HCO3 VBG O2 Saturation VBG Base Excess Sodium Potassium Chloride Carbon Dioxide Anion Gap BUN Creatinine Estim Creat Clear Calc Estimated GFR POC Glucose Random Glucose Estimat Average Glucose Hemoglobin A1c % Calcium Phosphorus Magnesium Total Bilirubin AST ALT Alkaline Phosphatase Troponin I High Sens Total Protein Albumin Beta HCG, Quant Urine Color Urine Appearance Urine pH Ur Specific [place] Urine Protein Urine Glucose (UA) Urine Ketones Urine Blood Urine Nitrite Ur Leukocyte Esterase Urine RBC Urine WBC Ur Squamous Epith Cells Urine Bacteria Hyaline Casts 01/22/24 01/22/24 01/22/24 08:58 08:58 08:58 WBC RBC Hgb Hct MCV MCH MCHC RDW Plt Count MPV Immature Gran % (Auto) Neut % (Auto) Lymph % (Auto) [place] % (Auto) Eos % (Auto) Baso % (Auto) Lymph # (Auto) [place] # (Auto) Eos # (Auto) Baso # (Auto) Cancelled Abs Immat Gran (auto) 0.02 Cancelled Absolute Neuts (auto) 3.2 Cancelled Absolute Nucleated RBC 0.000 Nucleated RBC % (auto) VBG pH VBG pCO2 VBG pO2 VBG HCO3 VBG O2 Saturation VBG Base Excess Sodium Potassium Chloride Carbon Dioxide Anion Gap BUN Creatinine Estim Creat Clear Calc Estimated GFR POC Glucose Random Glucose Estimat Average Glucose Hemoglobin A1c % Calcium Phosphorus Magnesium Total Bilirubin AST ALT Alkaline Phosphatase Troponin I High Sens Total Protein Albumin Beta HCG, Quant Urine Color Urine Appearance Urine pH Ur Specific [place] Urine Protein Urine Glucose (UA) Urine Ketones Urine Blood Urine Nitrite Ur Leukocyte Esterase Urine RBC Urine WBC Ur Squamous Epith Cells Urine Bacteria Hyaline Casts 01/22/24 01/22/24 01/22/24 08:58 08:58 11:21 WBC RBC Hgb Hct MCV MCH MCHC RDW Plt Count MPV Immature Gran % (Auto) Neut % (Auto) Lymph % (Auto) [place] % (Auto) Eos % (Auto) Baso % (Auto) Lymph # (Auto) [place] # (Auto) Eos # (Auto) Baso # (Auto) Abs Immat Gran (auto) Absolute Neuts (auto) Absolute Nucleated RBC Cancelled Nucleated RBC % (auto) 0.0 Cancelled VBG pH VBG pCO2 VBG pO2 VBG HCO3 VBG O2 Saturation VBG Base Excess Sodium 131 L Potassium 3.3 Chloride 95 L Carbon Dioxide 24 Anion Gap 15 BUN 28 H Creatinine 5.25 H* Estim Creat Clear Calc 16.1 Estimated GFR 9 POC Glucose 78 Random Glucose 99 Estimat Average Glucose Hemoglobin A1c % Calcium 6.6 L D Phosphorus Magnesium Total Bilirubin AST ALT Alkaline Phosphatase Troponin I High Sens Total Protein Albumin Beta HCG, Quant Urine Color Urine Appearance Urine pH Ur Specific [place] Urine Protein Urine Glucose (UA) Urine Ketones Urine Blood Urine Nitrite Ur Leukocyte Esterase Urine RBC Urine WBC Ur Squamous Epith Cells Urine Bacteria Hyaline Casts Airway Mallampati Class: II TM Dist: >3cm Neck ROM: Full Loose/Missing/Broken Teeth: Yes (Patient states 1 broken tooth but nothing loose) and No Heart: S1S2 Lungs: CTAB Assessment and Plan Assessment Anesthesia Assessment: Anesthesia Plan Discussed and Chart Reviewed Final Anesthetic Review Family History of Problems with Anesthesia: No History of Problems with Anesthesia: No NPO: Yes ASA Class: III Final Preanesthetic Review: No Changes in Pt Med Stat, Consent Obtained/Reviewed and Anes Risks/Benef Reviewed Patient Risk: High Procedure Risk: Low Anesthetic Plan Anesthetic Plan: GA and Agree w/ Assess. and Plan Disposition: Standard PACU
[2024-01-22] MEDS: 0.9 % Sodium Chloride 1,000 ML 50 ML IVCONT (12:43)
[2024-01-22 12:48] LABS: Glucose, Whole Blood 74 mg/dL (60-115)
--- NOTE | 2024-01-22 13:28 | W.PM.OPN ---
Operative Note Operative Note Date of Service: 01/22/24 Narrative: Preoperative diagnosis: Diabetic Pressure ulcer left foot/heel Postoperative diagnosis: Same Procedure: Debridement of diabetic pressure ulcer left foot/heel Surgeon: Angel Collado MD [employer] Mixer: Sindi Chandra PA-C Anesthesia: General LMA Indications for procedure: 33-year-old female with multiple medical problems found to have a painful pressure ulcer located in the posterior left heel which was producing a foul-smelling discharge. Operative findings: Proximally 2 cm pressure ulcer located in the posterior aspect of the left heel with necrotic tissue at the base. Necrotic tissue extends to the calcaneus. A combination of skin, subcutaneous tissue, muscle and bone were debrided today. Specimen: None Estimated blood loss: 10 mL Complications: None Procedure details: Patient was brought to the OR and placed in a supine position. After administering general anesthesia the patient's left foot and lower leg were prepped with Betadine and draped in a sterile fashion. A surgical time-out was called and the consent confirmed. Patient received preoperative antibiotics. The ulcer is located in the posterior heel just below the Achilles tendon. A combination of curette and a scalpel sharp dissection was used to excise the necrotic tissue with an area measuring approximately 2 cm in diameter extending down cm towards the calcaneus. Viable tissue was noted at the margins. A portion of the calcaneus was debrided using the curette. At the completion of the debridement bleeding tissue was noted circumferentially. Hemostasis was achieved using electrocautery and Surgicel. Attention was then directed to the plantar callus which was debrided of its callus using a curette for an area measuring approximately 3 cm in diameter. No open wound was identified. Sterile dressings were then applied including the Surgicel, fluff gauze, ABD pad, and Kerlix. The patient tolerated the procedure well. Sponge, instrument, and needle counts reported as correct. The patient was transferred to PACU in stable condition.
[2024-01-22 15:57] LABS: Glucose, Whole Blood 82 mg/dL (60-115)
[2024-01-22] MEDS: ondansetron HCL 4 MG/2 ML VIAL IVPUSH (21:59)
[2024-01-23 04:00] VITALS: BP 132/77; PULSE 75; RESP 18; TEMP 36.3; O2SAT 96
[2024-01-23] MEDS: HYDROmorphone HCl 1 MG/ML SYRINGE IVPUSH ×2 (04:00→10:33)
[2024-01-23] MEDS: ondansetron HCL 4 MG/2 ML VIAL IVPUSH (05:56)
[2024-01-23 05:59] VITALS: BMI 29.5
[2024-01-23 07:19] LABS: Glucose, Whole Blood 85 mg/dL (60-115)
[2024-01-23 08:00] VITALS: BP 154/83; PULSE 75; RESP 17; TEMP 36.8; O2SAT 98
[2024-01-23] MEDS: hydrALAZINE HCl 50 MG TABLET PO ×2 (08:56→20:30)
[2024-01-23] MEDS: carvediloL 12.5 MG TABLET PO ×2 (08:56→20:31)
[2024-01-23] MEDS: 0.9 % Sodium Chloride Flush 3 ML SYRINGE IVFLUSH ×2 (09:09→16:52)
--- NOTE | 2024-01-23 09:38 | HO.POSTANES ---
Post Anesthesia Evaluation Post Anesthesia Evaluation Date of Service: 01/23/24 Vital Signs: Vital Signs Temp Pulse Resp BP Pulse Ox O2 Del Method O2 Flow Rate 01/23/24 08:00 98.3 F 75 17 154/83 H 98 Nasal Cannula 4 01/23/24 04:00 97.4 F 75 18 132/77 96 Nasal Cannula 4 01/22/24 23:53 96.3 F L 70 18 145/71 H 96 Room Air Anesthesia: General LMA Mental Status: Awake Pain Control: Satisfactory Nausea/Vomiting: Mild Hydration: Adequate Anesthesia-Related Issues: No Anes. Related Issues
--- NOTE | 2024-01-23 10:32 | MHC.CM.PN ---
Per ROUNDS discussion, Patient is not yet medically cleared for dc (S/P Surgical Debridement/IV Dilaudid/IV Zofran); home is the goal and CM will continue to follow.
[2024-01-23 12:00] VITALS: BP 157/76; PULSE 77; RESP 20; TEMP 36.5; O2SAT 100
[2024-01-23 12:13] LABS: Glucose, Whole Blood 102 mg/dL (60-115)
[2024-01-23] MEDS: Fluticasone Propionate Nasal 16 GM SPRAY 1 SPRAY NOSTRIL-B (12:19)
--- NOTE | 2024-01-23 12:19 | HO.WOUND ---
Wound Consult: Follow up 33yr old female? admitted to [facility] [place] on 01/14/24 - See progress notes and H&P for detailed history.? 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 Wound consult follow up for Bilateral lower foot wounds.? Spoke to Tobias 01/22/24 and agreed to assess post debridement of left heel and plantar area. Todays assessment is detailed below. ?? 01/17/24 Left Heel? - Diabetic Wound - post debridement in OR with Dr. Collado - No odor noted no induration no erythema and no fluctance noted at this time? -?Wound bed with clean red moist tissue with circumferential edges rosenthal brown suspect from cautery in OR. Recommend continuing with wet to dry dressing daily while inpatient and then at time of d/c switch to Alginate packing and change every other day. The patient continues to express localized pain to left heel. Left TMA site - resurfaced healed? - no topical interventions needed at this time. 01/17/24 01/23/24 Left Plantar Diabetic Wound? - Intact resurfaced - callused pared down by Tobias Joseph in OR revealing intact tissue. No fluctuance no induration no warmth noted. Pad with dry gauze when dressing. ? Right Plantar 01/17/24 01/23/24 Right Plantar Diabetic Wound? - smaller - resurfacing wound bed - dry red wound bed - no induration no fluctance no odor noted - Iodosorb to keep dry and stable and allow for antimicrobial properties and break through biofilm.? Right Lateral Diabetic Wound? -? Diabetic Wound? - Resurfaced intact tissue Right Dorsal Diabetic Wound? - Resurfaced intact tissue Coccyx - previous Pressure Injury healed and resurfaced - MASD noted at this time hyperpigmentation and maceration noted - skin intact Goals of Treatment: ? Off Load Pressure and barrier cream to protect from friction and moisture Open discussion with patient continue about compliance with care provided and recommended and benefits of allowing topical interventions to be completed to improve healing.? She reports understanding. Recommendations: 1. Turn and Reposition every 2 hours and as needed for patient comfort.? Use pillows or wedges to support off loading positions. 2. Off Load all bony prominences with use of pillows and heel boots if needed.? Apply Preventative foams where needed. ? 3. Monitor for incontinence and moisture control, use barrier creams when needed for prevention and treatment. 4. Provide adequate and supplemental nutrition.? 5. Order low air loss mattress. 6. When applicable maintain blood glucose levels per Providers order. 7. Right Plantar wound? - Elevate heels off of bed surface with pillows.?Cleanse with saline, pat dry. ?Apply Iodosorb / Iodoflex to wound bed cover with gauze and tape. ?Change every other day.?? Iodoflex left at bedside. Note the Iodoflex will be applied brown and over the course of time as the Iodine is absorbed into the wound bed the color will change to yellow / cream signifying time to replace.??Iodoflex / Iodosorb is only available from wound care nurse. 8. Left Heel - Cleanse and irrigate with Ns, pat dry. Lightly pack wound bed with NS wet gauze, followed by Dry gauze, ABD pad and wrap. Change Daily while inpatient. At time of discharge patient should switch to Durafiber to the wound bed and change every other day as well. 9. ?Sacrococcygeal area - Off Load Pressure - Cleanse with PH balance spray or wipes, pat dry. ?Apply thin layer of barrier cream twice daily. Re-consult wound care Nurse for wound deterioration or wound changes.
--- NOTE | 2024-01-23 14:14 | HO.PM.IMPN ---
Subjective Subjective Date of Service: 01/23/24 Interval History: Subjectively complaining of pain; utilizing Dilaudid. No acute issues Review of Systems Denies chest pain Denies shortness of breath Denies nausea vomiting diarrhea Denies fever chills Admits to ongoing foot pain Physical Exam Vital Signs: Vital Signs: Last Vital Signs Temp 97.7 F 01/23/24 12:00 Pulse 77 01/23/24 12:00 Resp 20 01/23/24 12:00 BP 157/76 H 01/23/24 12:00 Pulse Ox 100 01/23/24 12:00 O2 Del Method Nasal Cannula 01/23/24 12:00 O2 Flow Rate 3 01/23/24 12:00 Oxygen Flow Rate 2 01/14/24 18:38 BMI result Body Mass Index 29.5 Const: Other: Awake alert no acute distress Resp: Other: Clear to auscultation bilaterally no rales rhonchi or wheezes Cardio: Other: No S4; positive S1-S2; no S3 murmurs rubs or gallops GI: Other: Soft nontender nondistended normoactive bowel sounds Extrem: Other: Left lower extremity dressing clean dry and intact Objective Data Active Medications Acetaminophen (Acetaminophen 325 Mg Tablet) 650 mg PO Q6H PRN PRN Reason: Pain, Mild (Pain Scale 1-3), fever or headache Last Admin: 01/15/24 20:15 Dose: 650 mg Documented By: MONTEZ Calcitriol (Calcitriol Oral Soln 0.25 Mcg/0.25 Ml Solution) 0.25 mcg PO MoWeFr@0900 [facility] Last Admin: 01/21/24 11:52 Dose: Not Given Documented By: ARPIT Non-Admin Reason: Patient Refused Calcium Carbonate (Calcium Carbonate 750 Mg Tab.Chew) 750 mg PO Q4H PRN PRN Reason: Heartburn Last Admin: 01/20/24 11:56 Dose: 750 mg Documented By: YUE Carvedilol (Carvedilol 12.5 Mg Tablet) 12.5 mg PO BID [facility]; Protocol Last Admin: 01/23/24 08:56 Dose: 12.5 mg Documented By: DAE Fluticasone Propionate (Fluticasone Propionate Nasal 16 Gm [place]) 1 spray NOSTRIL-B DAILY [facility] Last Admin: 01/23/24 12:19 Dose: 1 spray Documented By: DAE Glucose (Glucose Gel 15 Gm Gel..Gram.) 15 gm PO Q15M PRN; Protocol PRN Reason: per Hypoglycemia Standing Ord. Last Admin: 01/18/24 03:40 Dose: 15 gm Documented By: TIFFANIE Heparin Sodium (Porcine) (Heparin Sodium,Porcine 5,000 Unit/Ml Vial) 5,000 unit SUBCUT Q12H [facility] Last Admin: 01/23/24 12:15 Dose: Not Given Documented By: DAE Non-Admin Reason: Patient Refused Hydralazine HCl (Hydralazine Hcl 50 Mg Tablet) 50 mg PO TID [facility]; Protocol Last Admin: 01/23/24 08:56 Dose: 50 mg Documented By: DAE Hydromorphone HCl (Hydromorphone Hcl 1 Mg/Ml Syringe) 1 mg IVPUSH Q6H PRN; Protocol PRN Reason: Pain, Severe (Pain Scale 7-10) Last Admin: 01/23/24 10:33 Dose: 1 mg Documented By: DAE Dextrose (D10) 250 mls @ 750 mls/hr IV Q15M PRN; Protocol PRN Reason: per Hypoglycemia Standing Ord. Last Infusion: 01/19/24 09:24 Dose: Infused Documented By: YUE Insulin Human Lispro (Insulin Lispro 100 Unit/Ml 3 Ml Vial) 0 unit SUBCUT QIDACHS [facility]; Protocol Last Admin: 01/23/24 12:16 Dose: Not Given Documented By: DAE Non-Admin Reason: No Insulin Coverage Lidocaine (Lidocaine 4 % Patch Adh..Patch) 1 patch TRANSDERMA DAILY [facility] Last Admin: 01/23/24 08:52 Dose: Not Given Documented By: DAE Non-Admin Reason: Patient Refused Magnesium Hydroxide (Milk Of Magnesia 30 Ml Oral.Susp) 30 ml PO DAILY PRN PRN Reason: Constipation Melatonin (Melatonin 3 Mg Tablet) 6 mg PO BEDTIME PRN PRN Reason: Insomnia Naloxone HCl (Naloxone Hcl 0.4 Mg/Ml Vial) 0.04 mg IVPUSH Q5M PRN PRN Reason: Excessive sedation or RR < 8 Ondansetron HCl (Ondansetron Hcl 4 Mg/2 Ml Vial) 4 mg IVPUSH Q8H PRN PRN Reason: Nausea and Vomiting Last Admin: 01/23/24 05:56 Dose: 4 mg Documented By: KANDI Oxycodone HCl (Oxycodone Hcl Immed Release 5 Mg Tablet) 5 mg PO Q6H PRN PRN Reason: Pain, Moderate(Pain Scale 4-6) Sodium Chloride (0.9 % Sodium Chloride Flush 3 Ml Syringe) 3 ml IVFLUSH QSHIFT [facility] Last Admin: 01/23/24 09:09 Dose: 3 ml Documented By: DAE Trimethoprim/Sulfamethoxazole (Sulfamethox/Trimeth 400/80 Tablet) 1 tab PO DAILY [facility] Last Admin: 01/22/24 08:54 Dose: 1 tab Documented By: DAE Labs 01/22/24 08:58 01/22/24 08:58 Labs: Laboratory Results - last 24 hr 01/22/24 01/23/24 01/23/24 15:53 07:13 12:03 POC Glucose 82 85 102 Assessment and Plan (1) CLABSI (central line-associated bloodstream infection): Status: Acute (2) Chronic ulcer of left foot due to diabetes mellitus: Status: Acute Plan 33-year-old female with pertinent history of ESRD on hemodialysis, 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 1.Central line bloodstream infection -blood cultures from [facility] growing stenotrophomonas maltophilia and acinetobacter peripheral blood cultures negative -s/p permcath changeover 01/17 -initially treated with IV Zosyn will transition to po bactrim for total 4 weeks 2.ESRD on hemodialysis -HD as per renal -follow renals/divalents 3.Acute on chronic systolic CHF -presentation secondary to noncompliance with hemodialysis -hemodialysis as per renal -titrate O2 as tolerated 4.Chronic b/l foot wounds -debrided in OR 01/21 -surgery/Wound Care following 5.Thrombocytopenia -stable at this time -follow daily CBC 6.Xbs-bawaymv-nxwxdtity diabetes mellitus with diabetic polyneuropathy/retinopathy with hypoglycemia -acceptable control on current therapies -lispro correctional scale -adjust as indicated Heparin Full code requires ongoing inpatient stay for surgical management due to worsening diabetic foot ulcers Quality Stroke Does the patient have a stroke diagnosis?: No VTE Prior VTE?: No VTE Risk Level:: Medical - moderate - high VTE Device Contraindication: Treatment Not Indicated VTE Drug Contraindication: N/A - Med Ordered
[2024-01-23 16:00] VITALS: BP 133/66; PULSE 80; RESP 20; TEMP 36.3; O2SAT 100
[2024-01-23 16:38] LABS: Glucose, Whole Blood 126 mg/dL (60-115)
[2024-01-23] MEDS: oxyCODONE HCl Immed Release 5 MG TABLET 10 MG PO (16:51)
[2024-01-23] MEDS: diphenhydrAMINE HCL 25 MG CAPSULE PO (16:51)
[2024-01-23] MEDS: Sulfamethox/Trimeth 400/80 TABLET 1 TAB PO (16:53)
[2024-01-23 19:47] VITALS: BP 168/80; PULSE 83; RESP 16; TEMP 36.1; O2SAT 100
[2024-01-23] MEDS: Melatonin 3 MG TABLET 6 MG PO (20:31)
[2024-01-23] MEDS: Acetaminophen 325 MG TABLET 650 MG PO (20:31)
[2024-01-23 20:36] LABS: Glucose, Whole Blood 114 mg/dL (60-115)
[2024-01-24] VITALS (10 sets, daily range): BP systolic 112–185; BP diastolic 59–84; PULSE 74–90; RESP 17–20; TEMP 36.1–36.6; O2SAT 95–100
[2024-01-24 07:41] LABS: Glucose, Whole Blood 82 mg/dL (60-115)
--- NOTE | 2024-01-24 07:59 | P.PNNP_ITS ---
Subjective Subjective Date of Service: 01/24/24 Physical Exam 2 Vital Signs: Vital Signs: Last Vital Signs Temp 96.9 F 01/24/24 07:20 Pulse 77 01/24/24 07:20 Resp 18 01/24/24 07:20 BP 141/70 H 01/24/24 07:20 Pulse Ox 99 01/24/24 07:20 O2 Del Method Nasal Cannula 01/24/24 07:20 O2 Flow Rate 4 01/24/24 07:20 Oxygen Flow Rate 2 01/14/24 18:38 BMI result Body Mass Index 29.5 cvs: s1s2 Rs; cta Abd; soft Objective Data Labs 01/22/24 08:58 01/22/24 08:58 Labs: Laboratory Results - last 24 hr 01/23/24 01/23/24 01/23/24 12:03 16:30 20:30 POC Glucose 102 126 H 114 01/24/24 07:36 POC Glucose 82 Microbiology Microbiology Results: Microbiology 01/15/24 20:34 Blood - Venous Blood Culture - Final No growth after 5 days. 01/15/24 20:34 Blood - Venous Blood Culture - Final No growth after 5 days. 01/15/24 10:38 Blood - Arterial Line Blood Culture - Final Stenotrophomonas maltophilia Acinetobacter baumannii 01/15/24 10:38 Blood - Arterial Line Blood Culture - Final Stenotrophomonas maltophilia Procedures Date of Service Date of Service: 01/24/24 Assessment & Plan Assessment and plan (1) End stage chronic kidney disease: Status: Acute Plan ephrogenic anemia HTN- bp meds Non-compliance Left ij pc - now replaced REC: HD Regular TTS scedule . Thxiving schedule adjustment- next will be sunday ; meds as noted; epo as ordered calcitriol likely Line infection- however rpt cx neg- per dw ID - now changed line over guide wire - on po bactrim for 4 weeks for sternotroph now being managed by surgery for diabetic foot follow blood cultures - daily bmp discussed w team Time Spent With Patient Time: Total time managing care of this patient today ____ minutes. Progress Note: Quality Stroke Does the patient have a stroke diagnosis?: No
[2024-01-24] MEDS: Sulfamethox/Trimeth 400/80 TABLET 1 TAB PO (09:16)
[2024-01-24] MEDS: carvediloL 12.5 MG TABLET PO (09:16)
[2024-01-24] MEDS: 0.9 % Sodium Chloride Flush 3 ML SYRINGE IVFLUSH (09:16)
[2024-01-24] MEDS: hydrALAZINE HCl 50 MG TABLET PO (09:16)
[2024-01-24] MEDS: Fluticasone Propionate Nasal 16 GM SPRAY 1 SPRAY NOSTRIL-B (09:17)
[2024-01-24 11:23] LABS: Glucose, Whole Blood 78 mg/dL (60-115)
--- NOTE | 2024-01-24 13:47 | HO.PM.IMPN ---
Subjective Subjective Date of Service: 01/24/24 Interval History: No acute issues overnight. Utilizing only oxycodone with good response Review of Systems Denies chest pain Denies shortness of breath Denies nausea vomiting diarrhea Denies fever chills Admits to ongoing foot pain Physical Exam Vital Signs: Vital Signs: Last Vital Signs Temp 97.8 F 01/24/24 11:01 Pulse 80 01/24/24 11:01 Resp 17 01/24/24 11:01 BP 112/60 01/24/24 11:01 Pulse Ox 96 01/24/24 11:01 O2 Del Method Nasal Cannula 01/24/24 11:01 O2 Flow Rate 2 01/24/24 11:01 Oxygen Flow Rate 2 01/14/24 18:38 BMI result Body Mass Index 29.5 Const: Other: Awake alert no acute distress Resp: Other: Clear to auscultation bilaterally no rales rhonchi or wheezes Cardio: Other: No S4; positive S1-S2; no S3 murmurs rubs or gallops GI: Other: Soft nontender nondistended normoactive bowel sounds Extrem: Other: Left lower extremity dressing clean dry and intact Objective Data Active Medications Acetaminophen (Acetaminophen 325 Mg Tablet) 650 mg PO Q6H PRN PRN Reason: Pain, Mild (Pain Scale 1-3), fever or headache Last Admin: 01/23/24 20:31 Dose: 650 mg Documented By: BUZZ Calcitriol (Calcitriol Oral Soln 0.25 Mcg/0.25 Ml Solution) 0.25 mcg PO MoWeFr@0900 [facility] Last Admin: 01/23/24 16:52 Dose: Not Given Documented By: DAE Non-Admin Reason: Patient Refused Calcium Carbonate (Calcium Carbonate 750 Mg Tab.Chew) 750 mg PO Q4H PRN PRN Reason: Heartburn Last Admin: 01/20/24 11:56 Dose: 750 mg Documented By: YUE Carvedilol (Carvedilol 12.5 Mg Tablet) 12.5 mg PO BID [facility]; Protocol Last Admin: 01/24/24 09:16 Dose: 12.5 mg Documented By: RAFAEL Diphenhydramine HCl (Diphenhydramine Hcl 25 Mg Capsule) 25 mg PO Q6H PRN PRN Reason: itch Last Admin: 01/23/24 16:51 Dose: 25 mg Documented By: DAE Fluticasone Propionate (Fluticasone Propionate Nasal 16 Gm [place]) 1 spray NOSTRIL-B DAILY [facility] Last Admin: 01/24/24 09:17 Dose: 1 spray Documented By: RAFAEL Glucose (Glucose Gel 15 Gm Gel..Gram.) 15 gm PO Q15M PRN; Protocol PRN Reason: per Hypoglycemia Standing Ord. Last Admin: 01/18/24 03:40 Dose: 15 gm Documented By: TIFFANIE Heparin Sodium (Porcine) (Heparin Sodium,Porcine 5,000 Unit/Ml Vial) 5,000 unit SUBCUT Q12H [facility] Last Admin: 01/24/24 08:45 Dose: Not Given Documented By: RAFAEL Non-Admin Reason: Patient Refused Hydralazine HCl (Hydralazine Hcl 50 Mg Tablet) 50 mg PO TID [facility]; Protocol Last Admin: 01/24/24 09:16 Dose: 50 mg Documented By: RAFAEL Dextrose (D10) 250 mls @ 750 mls/hr IV Q15M PRN; Protocol PRN Reason: per Hypoglycemia Standing Ord. Last Infusion: 01/19/24 09:24 Dose: Infused Documented By: YUE Insulin Human Lispro (Insulin Lispro 100 Unit/Ml 3 Ml Vial) 0 unit SUBCUT QIDACHS [facility]; Protocol Last Admin: 01/24/24 11:50 Dose: Not Given Documented By: RAFAEL Non-Admin Reason: No Insulin Coverage Lidocaine (Lidocaine 4 % Patch Adh..Patch) 1 patch TRANSDERMA DAILY [facility] Last Admin: 01/24/24 09:16 Dose: Not Given Documented By: RAFAEL Non-Admin Reason: Patient Refused Magnesium Hydroxide (Milk Of Magnesia 30 Ml Oral.Susp) 30 ml PO DAILY PRN PRN Reason: Constipation Melatonin (Melatonin 3 Mg Tablet) 6 mg PO BEDTIME PRN PRN Reason: Insomnia Last Admin: 01/23/24 20:31 Dose: 6 mg Documented By: BUZZ Naloxone HCl (Naloxone Hcl 0.4 Mg/Ml Vial) 0.04 mg IVPUSH Q5M PRN PRN Reason: Excessive sedation or RR < 8 Ondansetron HCl (Ondansetron Hcl 4 Mg/2 Ml Vial) 4 mg IVPUSH Q8H PRN PRN Reason: Nausea and Vomiting Last Admin: 01/23/24 05:56 Dose: 4 mg Documented By: KANDI Oxycodone HCl (Oxycodone Hcl Immed Release 5 Mg Tablet) 10 mg PO Q4H PRN PRN Reason: Pain, Moderate(Pain Scale 4-6) Last Admin: 01/23/24 16:51 Dose: 10 mg Documented By: DAE Sodium Chloride (0.9 % Sodium Chloride Flush 3 Ml Syringe) 3 ml IVFLUSH QSHIFT [facility] Last Admin: 01/24/24 09:16 Dose: 3 ml Documented By: RAFAEL Trimethoprim/Sulfamethoxazole (Sulfamethox/Trimeth 400/80 Tablet) 1 tab PO DAILY [facility] Last Admin: 01/24/24 09:16 Dose: 1 tab Documented By: RAFAEL Labs 01/22/24 08:58 01/22/24 08:58 Labs: Laboratory Results - last 24 hr 01/23/24 01/23/24 01/24/24 16:30 20:30 07:36 POC Glucose 126 H 114 82 01/24/24 11:19 POC Glucose 78 Assessment and Plan (1) CLABSI (central line-associated bloodstream infection): Status: Acute Plan 33-year-old female with pertinent history of ESRD on hemodialysis, 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 1.[facility] blood[facility] stenotrophomonas maltophilia and acinetobacter peripheral blood cultures negative -s/p permcath changeover 01/17 -initially treated with IV Zosyn will transition to po bactrim for total 4 weeks 2.ESRD on hemodialysis -HD in a.m. prior to discharge -follow renals/divalents 3.Acute on chronic systolic CHF -presentation secondary to noncompliance with hemodialysis -hemodialysis as per renal -titrate O2 as tolerated 4.Chronic b/l foot wounds -debrided in OR 01/21 -surgery/Wound Care following 5.Thrombocytopenia -stable at this time -follow daily CBC 6.Tpz-kykrcpi-akkuegljn diabetes mellitus with diabetic polyneuropathy/retinopathy with hypoglycemia -acceptable control on current therapies -lispro correctional scale -adjust as indicated Heparin Full code requires ongoing inpatient stay for surgical management due to worsening diabetic foot ulcers Quality Stroke Does the patient have a stroke diagnosis?: No VTE Prior VTE?: No VTE Risk Level:: Medical - moderate - high VTE Device Contraindication: Treatment Not Indicated VTE Drug Contraindication: N/A - Med Ordered
[2024-01-24 17:34] LABS: Glucose, Whole Blood 102 mg/dL (60-115)
[2024-01-24 20:52] LABS: Glucose, Whole Blood 142 mg/dL (60-115)
[2024-01-25 03:04] VITALS: BP 197/101; PULSE 94; RESP 16; TEMP 36.7; O2SAT 98
[2024-01-25 05:43] VITALS: BMI 29.5
--- NOTE | 2024-01-25 06:31 | PC.NURSE ---
RN made patient aware both of her blood pressure and the dangers of having high blood pressure twice. The first time she stated my blood pressure has been high and refused her night time medications. The second time when her blood pressure was almost 200 systolic I explained that I was concerned and wanted her to be aware of the possible dangers including stroke but she just mumbled and said she didnt want them.
[2024-01-25 07:42] VITALS: BP 195/94; PULSE 92; RESP 18; TEMP 37.1; O2SAT 95
[2024-01-25 07:51] LABS: Glucose, Whole Blood 88 mg/dL (60-115)
[2024-01-25] MEDS: hydrALAZINE HCl 50 MG TABLET PO ×2 (09:27→20:41)
[2024-01-25] MEDS: Sulfamethox/Trimeth 400/80 TABLET 1 TAB PO (09:27)
[2024-01-25] MEDS: carvediloL 12.5 MG TABLET PO ×2 (09:27→20:41)
[2024-01-25] MEDS: Fluticasone Propionate Nasal 16 GM SPRAY 1 SPRAY NOSTRIL-B (09:28)
[2024-01-25] MEDS: 0.9 % Sodium Chloride Flush 3 ML SYRINGE IVFLUSH (09:30)
[2024-01-25 11:36] VITALS: BP 175/81; PULSE 88; RESP 18; TEMP 36.7; O2SAT 96
[2024-01-25 11:44] LABS: Glucose, Whole Blood 114 mg/dL (60-115)
[2024-01-25] MEDS: HYDROmorphone HCl 1 MG/ML SYRINGE IVPUSH ×3 (13:01→22:27)
--- NOTE | 2024-01-25 13:57 | P.PNIM_ITS ---
Subjective Subjective Date of Service: 01/25/24 Interval History: No acute issues overall. Scheduled for dialysis today Review of Systems Denies chest pain Denies shortness of breath Denies nausea vomiting diarrhea Denies fever chills Admits to ongoing foot pain Physical Exam 2 Vital Signs: Vital Signs: Last Vital Signs Temp 98.0 F 01/25/24 11:36 Pulse 88 01/25/24 11:36 Resp 18 01/25/24 11:36 BP 175/81 H 01/25/24 11:36 Pulse Ox 96 01/25/24 11:36 O2 Del Method Nasal Cannula 01/25/24 11:36 O2 Flow Rate 1 01/25/24 11:36 Oxygen Flow Rate 2 01/14/24 18:38 BMI result Body Mass Index 29.5 Const: Other: Awake alert no acute distress Resp: Other: Clear to auscultation bilaterally no rales rhonchi or wheezes Cardio: Other: No S4; positive S1-S2; no S3 murmurs rubs or gallops GI: Other: Soft nontender nondistended normoactive bowel sounds Extrem: Other: Left lower extremity dressing clean dry and intact Objective Data Active Medications Acetaminophen (Acetaminophen 325 Mg Tablet) 650 mg PO Q6H PRN PRN Reason: Pain, Mild (Pain Scale 1-3), fever or headache Last Admin: 01/23/24 20:31 Dose: 650 mg Documented By: BUZZ Calcitriol (Calcitriol Oral Soln 0.25 Mcg/0.25 Ml Solution) 0.25 mcg PO MoWeFr@0900 [facility] Last Admin: 01/25/24 10:19 Dose: Not Given Documented By: AUBREY Non-Admin Reason: Patient Refused Calcium Carbonate (Calcium Carbonate 750 Mg Tab.Chew) 750 mg PO Q4H PRN PRN Reason: Heartburn Last Admin: 01/20/24 11:56 Dose: 750 mg Documented By: YUE Carvedilol (Carvedilol 12.5 Mg Tablet) 12.5 mg PO BID [facility]; Protocol Last Admin: 01/25/24 09:27 Dose: 12.5 mg Documented By: AUBREY Diphenhydramine HCl (Diphenhydramine Hcl 25 Mg Capsule) 25 mg PO Q6H PRN PRN Reason: itch Last Admin: 01/23/24 16:51 Dose: 25 mg Fluticasone Propionate (Fluticasone Propionate Nasal 16 Gm [place]) 1 spray NOSTRIL-B DAILY [facility] Last Admin: 01/25/24 09:28 Dose: 1 spray Documented By: AUBREY Glucose (Glucose Gel 15 Gm Gel..Gram.) 15 gm PO Q15M PRN; Protocol PRN Reason: per Hypoglycemia Standing Ord. Last Admin: 01/18/24 03:40 Dose: 15 gm Documented By: TIFFANIE Heparin Sodium (Porcine) (Heparin Sodium,Porcine 5,000 Unit/Ml Vial) 5,000 unit SUBCUT Q12H [facility] Last Admin: 01/25/24 09:23 Dose: Not Given Documented By: AUBREY Non-Admin Reason: Patient Refused Hydralazine HCl (Hydralazine Hcl 50 Mg Tablet) 50 mg PO TID [facility]; Protocol Last Admin: 01/25/24 09:27 Dose: 50 mg Documented By: AUBREY Hydromorphone HCl (Hydromorphone Hcl 1 Mg/Ml Syringe) 1 mg IVPUSH Q4H PRN; Protocol PRN Reason: Pain, Severe (Pain Scale 7-10) Last Admin: 01/25/24 13:01 Dose: 1 mg Documented By: AUBREY Dextrose (D10) 250 mls @ 750 mls/hr IV Q15M PRN; Protocol PRN Reason: per Hypoglycemia Standing Ord. Last Infusion: 01/19/24 09:24 Dose: Infused Documented By: YUE Insulin Human Lispro (Insulin Lispro 100 Unit/Ml 3 Ml Vial) 0 unit SUBCUT QIDACHS [facility]; Protocol Last Admin: 01/25/24 11:58 Dose: Not Given Documented By: AUBREY Non-Admin Reason: No Insulin Coverage Lidocaine (Lidocaine 4 % Patch Adh..Patch) 1 patch TRANSDERMA DAILY [facility] Last Admin: 01/25/24 09:23 Dose: Not Given Documented By: AUBREY Non-Admin Reason: Patient Refused Magnesium Hydroxide (Milk Of Magnesia 30 Ml Oral.Susp) 30 ml PO DAILY PRN PRN Reason: Constipation Melatonin (Melatonin 3 Mg Tablet) 6 mg PO BEDTIME PRN PRN Reason: Insomnia Last Admin: 01/23/24 20:31 Dose: 6 mg Documented By: BUZZ Naloxone HCl (Naloxone Hcl 0.4 Mg/Ml Vial) 0.04 mg IVPUSH Q5M PRN PRN Reason: Excessive sedation or RR < 8 Ondansetron HCl (Ondansetron Hcl 4 Mg/2 Ml Vial) 4 mg IVPUSH Q8H PRN PRN Reason: Nausea and Vomiting Last Admin: 01/23/24 05:56 Dose: 4 mg Documented By: KANDI Oxycodone HCl (Oxycodone Hcl Immed Release 5 Mg Tablet) 10 mg PO Q4H PRN PRN Reason: Pain, Moderate(Pain Scale 4-6) Last Admin: 01/23/24 16:51 Dose: 10 mg Documented By: RIOSCEMERSON Sodium Chloride (0.9 % Sodium Chloride Flush 3 Ml Syringe) 3 ml IVFLUSH QSHIFT [facility] Last Admin: 01/25/24 09:30 Dose: 3 ml Documented By: AUBREY Trimethoprim/Sulfamethoxazole (Sulfamethox/Trimeth 400/80 Tablet) 1 tab PO DAILY [facility] Last Admin: 01/25/24 09:27 Dose: 1 tab Documented By: AUBREY Labs 01/22/24 08:58 01/22/24 08:58 Labs: Laboratory Results - last 24 hr 01/24/24 01/24/24 01/25/24 17:30 20:25 07:41 POC Glucose 102 142 H 88 01/25/24 11:40 POC Glucose 114 Assessment and Plan (1) CLABSI (central line-associated bloodstream infection): Status: Acute (2) End stage chronic kidney disease: Status: Acute Plan 33-year-old female with pertinent history of ESRD on hemodialysis, 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 1.Central line bloodstream infection -blood cultures from [facility] growing stenotrophomonas maltophilia and acinetobacter peripheral blood cultures negative -s/p permcath changeover 01/17 -initially treated with IV Zosyn will transition to po bactrim for total 4 weeks 2.ESRD on hemodialysis -HD in a.m. prior to discharge -follow renals/divalents 3.Acute on chronic systolic CHF -presentation secondary to noncompliance with hemodialysis -hemodialysis as per renal -titrate O2 as tolerated 4.Chronic b/l foot wounds -debrided in OR 01/21 -surgery/Wound Care following 5.Thrombocytopenia -stable at this time -follow daily CBC 6.Bkf-lnzdomy-soznuqmmo diabetes mellitus with diabetic polyneuropathy/retinopathy with hypoglycemia -acceptable control on current therapies -lispro correctional scale -adjust as indicated Heparin Full code requires ongoing inpatient stay for surgical management due to worsening diabetic foot ulcers Quality Stroke Does the patient have a stroke diagnosis?: No VTE Prior VTE?: No VTE Risk Level:: Medical - moderate - high VTE Device Contraindication: Treatment Not Indicated VTE Drug Contraindication: N/A - Med Ordered
--- NOTE | 2024-01-25 14:26 | MHC.CM.PN ---
EMR REVIEWED, PER HOSPITALIST NO PLAN FOR DC AT THIS TIME, PLAN REMAINS HOME ONCE MEDICALLY CLEARED, CM WILL CONT TO FOLLOW DC NEEDS.
[2024-01-25 16:00] VITALS: PULSE 94; RESP 16; TEMP 36.6; O2SAT 100
[2024-01-25 17:15] LABS: Glucose, Whole Blood 114 mg/dL (60-115)
--- NOTE | 2024-01-25 19:22 | P.PNNP_ITS ---
Subjective Subjective Date of Service: 01/26/24 Interval history: No acute issues overall. Scheduled for dialysis today Physical Exam 2 Vital Signs: Vital Signs: Last Vital Signs Temp 97.9 F 01/25/24 16:00 Pulse 94 01/25/24 16:00 Resp 16 01/25/24 16:00 BP 175/81 H 01/25/24 11:36 Pulse Ox 100 01/25/24 16:00 O2 Del Method Nasal Cannula 01/25/24 16:00 O2 Flow Rate 2 01/25/24 16:00 Oxygen Flow Rate 2 01/14/24 18:38 BMI result Body Mass Index 29.5 Objective Data Labs 01/22/24 08:58 01/22/24 08:58 Labs: Laboratory Results - last 24 hr 01/24/24 01/25/24 01/25/24 20:25 07:41 11:40 POC Glucose 142 H 88 114 01/25/24 17:10 POC Glucose 114 Microbiology Microbiology Results: Microbiology 01/15/24 20:34 Blood - Venous Blood Culture - Final No growth after 5 days. 01/15/24 20:34 Blood - Venous Blood Culture - Final No growth after 5 days. 01/15/24 10:38 Blood - Arterial Line Blood Culture - Final Stenotrophomonas maltophilia Acinetobacter baumannii 01/15/24 10:38 Blood - Arterial Line Blood Culture - Final Stenotrophomonas maltophilia Procedures Date of Service Date of Service: 01/26/24 Assessment & Plan Assessment and plan (1) End stage chronic kidney disease: Status: Acute Plan nephrogenic anemia HTN- bp meds Non-compliance Left ij pc - now replaced REC: HD Regular TTS scedule . Thxiving schedule adjustment- sunday hd today ; meds as noted; epo as ordered calcitriol likely Line infection- however rpt cx neg- per dw ID - now changed line over guide wire - on po bactrim for 4 weeks for sternotroph now being managed by surgery for diabetic foot follow blood cultures - daily bmp discussed w team Time Spent With Patient Time: Total time managing care of this patient today ____ minutes. Progress Note: Quality Stroke Does the patient have a stroke diagnosis?: No
[2024-01-25 20:00] VITALS: BP 170/80; PULSE 97; RESP 14; TEMP 36.3; O2SAT 99
[2024-01-25 20:40] LABS: Glucose, Whole Blood 130 mg/dL (60-115)
[2024-01-25] MEDS: ondansetron HCL 4 MG/2 ML VIAL IVPUSH (20:41)
[2024-01-25 23:59] VITALS: BP 156/81; PULSE 89; RESP 16; TEMP 36.6; O2SAT 98
[2024-01-26 00:02] VITALS: BP 187/84; PULSE 75; RESP 14; TEMP 36.6; O2SAT 95
[2024-01-26 03:04] VITALS: BP 153/82; PULSE 84; RESP 14; TEMP 36.4; O2SAT 98
[2024-01-26] MEDS: HYDROmorphone HCl 1 MG/ML SYRINGE IVPUSH ×2 (03:05→08:24)
[2024-01-26 06:00] VITALS: BMI 29.5
[2024-01-26 07:59] VITALS: BP 162/75; PULSE 81; RESP 18; TEMP 36.4; O2SAT 98
--- NOTE | 2024-01-26 08:04 | P.PNNP_ITS ---
Subjective Subjective Date of Service: 01/26/24 Interval history: No acute issues overall. Scheduled for dialysis today Physical Exam 2 Vital Signs: Vital Signs: Last Vital Signs Temp 97.6 F 01/26/24 07:59 Pulse 81 01/26/24 07:59 Resp 18 01/26/24 07:59 BP 162/75 H 01/26/24 07:59 Pulse Ox 98 01/26/24 07:59 O2 Del Method Nasal Cannula 01/26/24 07:59 O2 Flow Rate 2 01/26/24 07:59 Oxygen Flow Rate 2 01/14/24 18:38 BMI result Body Mass Index 29.5 cvs: s1s2 Rs; cta Abd; soft Objective Data Labs 01/22/24 08:58 01/22/24 08:58 Labs: Laboratory Results - last 24 hr 01/25/24 01/25/24 01/25/24 11:40 17:10 20:32 POC Glucose 114 114 130 H Microbiology Microbiology Results: Microbiology 01/15/24 20:34 Blood - Venous Blood Culture - Final No growth after 5 days. 01/15/24 20:34 Blood - Venous Blood Culture - Final No growth after 5 days. 01/15/24 10:38 Blood - Arterial Line Blood Culture - Final Stenotrophomonas maltophilia Acinetobacter baumannii 01/15/24 10:38 Blood - Arterial Line Blood Culture - Final Stenotrophomonas maltophilia Procedures Date of Service Date of Service: 01/26/24 Assessment & Plan Assessment and plan (1) End stage chronic kidney disease: Status: Acute Plan nephrogenic anemia HTN- bp meds Non-compliance Left ij pc - now replaced REC: HD Regular TTS scedule . Thxiving schedule adjustment- sunday hd today ; meds as noted; epo as ordered calcitriol likely Line infection- however rpt cx neg- per dw ID - now changed line over guide wire - on po bactrim for 4 weeks for sternotroph now being managed by surgery for diabetic foot follow blood cultures - daily bmp discussed w team Time Spent With Patient Time: Total time managing care of this patient today ____ minutes. Progress Note: Quality Stroke Does the patient have a stroke diagnosis?: No
[2024-01-26 08:07] LABS: Glucose, Whole Blood 75 mg/dL (60-115)
[2024-01-26 08:24] VITALS: BP 162/75
[2024-01-26] MEDS: Sulfamethox/Trimeth 400/80 TABLET 1 TAB PO (08:24)
[2024-01-26] MEDS: hydrALAZINE HCl 50 MG TABLET PO (08:24)
[2024-01-26] MEDS: Fluticasone Propionate Nasal 16 GM SPRAY 1 SPRAY NOSTRIL-B (08:25)
[2024-01-26] MEDS: carvediloL 12.5 MG TABLET PO (08:25)
[2024-01-26] MEDS: 0.9 % Sodium Chloride Flush 3 ML SYRINGE IVFLUSH (08:25)
[2024-01-26 10:52] VITALS: BP 149/81; PULSE 78; RESP 18; TEMP 36.2; O2SAT 98
[2024-01-26 11:03] LABS: Glucose, Whole Blood 112 mg/dL (60-115)
--- NOTE | 2024-01-26 11:07 | MHC.CM.PN ---
Per MD, patient medically cleared for dc home w/ family support. Patient requesting BLS transport. Booked for 12pm. RN and MD aware. IMM delivered.
--- NOTE | 2024-01-26 11:45 | P.DS_ITS ---
DS: Providers Provider Date of Service: 01/26/24 Date of admission: 01/14/24 21:13 Date of discharge: 01/26/24 Primary care physician: Genevieve Casillas MD Consults: 01/14/24 22:22 Consult to Nephrology Routine Consulting Provider: [facility] Reason for consultation: Missed dialysis 01/16/24 08:02 Consult to Wound Care Routine Reason for consultation: Chronic wounds present on bilateral foot amps Has provider been notified: Yes 01/16/24 08:08 Consult to Infectious Diseases Routine Consulting Provider: [facility] Reason for consultation: GNR bacteremia 01/18/24 11:13 Consult to Gastroenterology Routine Consulting Provider: Shay Cadet Reason for consultation: decreased po intake, nausea Has provider been notified: No 01/18/24 18:18 Consult to Psychiatry Routine Consulting Provider: [facility] Reason for consultation: refusing meds, refusing care, not eating Has provider been notified: No 01/20/24 18:13 Consult to General Surgery Routine Consulting Provider: [facility] Reason for consultation: left foot, TMA , debridement DS: Diagnosis Discharge Diagnosis (1) End stage chronic kidney disease: Status: Acute DS: Summary Hospital Course Hospital Course: H and P as per admitting provider. 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 Patient states her last dialysis was more than a week ago as she was on vacation in [place]. Patient is complaining of increasing dyspnea which has been progressive. Dyspnea is worse when she lays flat. Also did not take her p.o. medications for blood pressure during her vacation. Unclear if she completed her antibiotic course. Not interested in answering further questions regarding HPI. Denies fever, chills, palpitations, abdominal pain. In the emergency department, patient was IV furosemide and Nephrology was consulted. Central line bloodstream infection. blood cultures from [facility] growing stenotrophomonas maltophilia and acinetobacter. peripheral blood cultures negative. continue IV Zosyn for now, plan to discharge with 4 weeks of po bactrim, s/p catheter changeover 01/17; Acute on chronic congestive heart failure with reduced ejection fraction with chronic hypoxia. Resolved. Due to noncompliance with hemodialysis. . Given IV Lasix in the ER. patient had dialysis 01/14, RR called for unresponsiveness secondary to hypoglycemia, tx to ICU for hypotension, tx back to tele a few hours later. nephrology following Hypertensive emergency in a patient with poorly controlled hypertension due to medication noncompliance. continue hydralazine and coreg ESRD on hemodialysis HD as scheduled Aic-wfiihgz-jirbnkgsu diabetes mellitus with diabetic polyneuropathy/retinopathy with hypoglycemia. A1C 5.1. increase nutrition and protein. Mood disorder Not on mood stabilizers CAD/cardiomyopathy On beta-mohamud. 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 Time Attestation Discharge Coordination Time (in mins): 35 Quality: Safe Use of Opioids Does Pt have an Active Cancer Diagnosis on the Problem List?: No Quality: Stroke Does the patient have a stroke diagnosis?: No Physical Exam Vital Signs: Vital Signs: Last Vital Signs Temp 97.1 F 01/26/24 10:52 Pulse 78 01/26/24 10:52 Resp 18 01/26/24 10:52 BP 149/81 H 01/26/24 10:52 Pulse Ox 98 01/26/24 10:52 O2 Del Method Nasal Cannula 01/26/24 10:52 O2 Flow Rate 1.5 01/26/24 10:52 Oxygen Flow Rate 2 01/14/24 18:38 BMI result Body Mass Index 29.5 Const: Other: Awake alert no acute distress Resp: Other: Clear to auscultation bilaterally no rales rhonchi or wheezes Cardio: Other: No S4; positive S1-S2; no S3 murmurs rubs or gallops GI: Other: Soft nontender nondistended normoactive bowel sounds Extrem: Other: Left lower extremity dressing clean dry and intact DS: Data Data Completed and Pending Completed studies during hospitalization [Text1]: Procedures Detachment at Left 2nd Toe, Complete, Open Approach (09/08/23) Detachment at Left 3rd Toe, Complete, Open Approach (09/08/23) Detachment at Left 4th Toe, Complete, Open Approach (09/08/23) Detachment at Right Foot, Partial 1st Ray, Open Approach (03/01/20) Detachment at Right Foot, Partial 2nd Ray, Open Approach (03/01/20) Detachment at Right Foot, Partial 3rd Ray, Open Approach (03/01/20) Detachment at Right Foot, Partial 4th Ray, Open Approach (03/01/20) Detachment at Right Foot, Partial 5th Ray, Open Approach (03/01/20) Drainage of Right Pleural Cavity, Percutaneous Approach (01/14/21) Excision of Left Foot Skin, External Approach (10/08/23) Excision of Left Foot Subcutaneous Tissue and Fascia, Open Approach (10/08/23) Excision of Right Foot Skin, External Approach (08/27/23) Excision of Stomach, Pylorus, Via Natural or Artificial Opening Endoscopic, Diagnostic (08/27/22) Fluoroscopy of Superior Vena Cava, Guidance (08/14/22) Insertion of Endotracheal Airway into Trachea, Via Natural or Artificial Opening (11/10/23) Insertion of Infusion Device into Right Atrium, Percutaneous Approach (08/14/22) Insertion of Infusion Device into Superior Vena Cava, Percutaneous Approach (11/10/23) Insertion of Infusion Device into Upper Vein, Percutaneous Approach (08/27/23) Insertion of Tunneled Vascular Access Device into Chest Subcutaneous Tissue and Fascia, Percutaneous Approach (11/10/23) Introduction of Vasopressor into Peripheral Vein, Percutaneous Approach (11/10/23) Isolation (11/10/23) Performance of Urinary Filtration, Intermittent, Less than 6 Hours Per Day (12/11/23) Removal of Infusion Device from Great Vessel, External Approach (01/14/21) Respiratory Ventilation, Greater than 96 Consecutive Hours (11/10/23) Transfusion of Nonautologous Red Blood Cells into Peripheral Vein, Percutaneous Approach (11/10/23) Ultrasonography of Superior Vena Cava, Guidance (11/10/23) Labs on day of discharge: Laboratory Results - last 24 hr 01/25/24 01/25/24 01/25/24 11:40 17:10 20:32 POC Glucose 114 114 130 H 01/26/24 01/26/24 08:01 10:53 POC Glucose 75 112 Discharge Plan Discharge Anticipated Discharge Date/Time: 01/26/24 11:39 Patient Disposition: Home, Self-Care Discharge Diagnosis: Central line bloodstream infection stenotrophomonas maltophilia and acinetobacter Acute on chronic congestive heart failure reduced ejection fraction Hypertensive emergency End-stage renal disease on hemodialysis Referrals: Genevieve Gtz MD [Primary Care Provider] - 1 Week Discharge Medications: New oxycodone 10 mg tablet 10 mg PO Q6H PRN (Reason: pain) Qty: 20 0RF Rx Instructions: Partial Fill upon patient request. Continued carvedilol 12.5 mg Tablet 12.5 mg PO BID 90 Days Qty: 180 0RF Protocol: Hold for SBP/HR < HOLD for SBP < : 90 HOLD for HR < : 60 hydralazine 50 mg Tablet 50 mg PO TID 90 Days Qty: 270 0RF Protocol: Hold for SBP< HOLD for SBP < : 90 sulfamethoxazole-trimethoprim [Bactrim] 400-80 mg tablet 1 tab PO Q24H Qty: 28 0RF lidocaine 5 % adhesive patch,medicated 1 patch topical DAILY nitroglycerin 0.4 mg tablet, sublingual 0.4 mg sublingual DIRECTED PRN (Reason: Angina) albuterol sulfate [Ventolin HFA] 90 mcg/actuation HFA aerosol inhaler 2 puff inhalation Q6H PRN (Reason: wheezing) Discontinued oxycodone 5 mg tablet 5 mg PO Q8H PRN (Reason: pain) Discharge Orders: Discharge Order (Routine); Ordered 01/26/24 Ordered By: Steve Shepherd Diet: Advance to usual diet Activity on Discharge: As tolerated Stand Alone Forms: Patient Portal Discharge page Print Language: Slovenian Care Plan Goals: Do not skip any scheduled dialysis sessions continue on your Sunday, and Sunday schedule Health Concerns: Central line bloodstream infection stenotrophomonas maltophilia and acinetobacter Acute on chronic congestive heart failure reduced ejection fraction Hypertensive emergency End-stage renal disease on hemodialysis Plan of Treatment: Follow-up with primary care provider as needed Take all medications as prescribed Assessment: See discharge summary
== END 2024-01-26 12:28 | disposition home or self-care (01) | DRG 264 ==
LOC: HO.ED 21:50 → HO.EDOVER 21:59 → HO.ICU 01-15 12:36 → HO.IMC 01-15 14:52
PROVIDERS: Nurse Practitioner Acute Care; Physician Assistant Medical; Physician Assistant Surgical; Surgery; Admitting Provider Student in an Organized Health Care Education/Training Program; Emergency Provider Emergency Medicine Emergency Medical Services; PCP Student in an Organized Health Care Education/Training Program; Visit Provider Hospitalist
PROC: 0KBW0ZZ Excision of Left Foot Muscle, Open Approach (ICD-10-PCS; principal; 2024-01-22 13:00)
DX: T80.211A Bloodstream infection due to central venous catheter, initial encounter (principal); I50.23 Acute on chronic systolic (congestive) heart failure; N18.6 End stage renal disease; I13.2 Hypertensive heart and chronic kidney disease with heart failure and with stage 5 chronic kidney disease, or end stage renal disease; I42.9 Cardiomyopathy, unspecified; I16.1 Hypertensive emergency; R78.81 Bacteremia; L97.429 Non-pressure chronic ulcer of left heel and midfoot with unspecified severity; E11.52 Type 2 diabetes mellitus with diabetic peripheral angiopathy with gangrene; H54.8 Legal blindness, as defined in USA; E11.42 Type 2 diabetes mellitus with diabetic polyneuropathy; E11.319 Type 2 diabetes mellitus with unspecified diabetic retinopathy without macular edema; F43.29 Adjustment disorder with other symptoms; E11.649 Type 2 diabetes mellitus with hypoglycemia without coma; B96.83 Acinetobacter baumannii as the cause of diseases classified elsewhere; E11.621 Type 2 diabetes mellitus with foot ulcer; L97.529 Non-pressure chronic ulcer of other part of left foot with unspecified severity; E11.22 Type 2 diabetes mellitus with diabetic chronic kidney disease; D69.6 Thrombocytopenia, unspecified; I25.10 Atherosclerotic heart disease of native coronary artery without angina pectoris; Z99.2 Dependence on renal dialysis; Z76.5 Malingerer [conscious simulation]; G89.29 Other chronic pain; Z99.81 Dependence on supplemental oxygen; Z91.148 Patient's other noncompliance with medication regimen for other reason; Z91.158 Patient's noncompliance with renal dialysis for other reason; Z79.899 Other long term (current) drug therapy
CPT/HCPCS: 36415; 36558; 71045; 71260; 74177; 80048; 80053; 81001; 82310; 82803; 82947; 83036; 83735; 84100; 84484; 84702; 85025; 85027; 87040; 87077; 87186; 87205; 90999; 93005; 94799; 99285; C1750; C1758; J0690; J1171; J1920; J1940; J2003; J2250; J2405; J2543; J2704; J3010; Q9967

== ENCOUNTER → 2024-01-14 20:00 | Outpatient (BNV) | payer OTHER, SELFPAY | PROVIDERS: Admitting Provider Student in an Organized Health Care Education/Training Program; Emergency Provider Emergency Medicine Emergency Medical Services; PCP Student in an Organized Health Care Education/Training Program; Visit Provider Internal Medicine Cardiovascular Disease | DX: R94.31 Abnormal electrocardiogram [ECG] [EKG] (principal) | CPT/HCPCS: 93010 ==

== ENCOUNTER 2024-01-14 21:13 | Outpatient (BNV) | payer OTHER, SELFPAY | END 2024-01-18 13:00 | PROVIDERS: Admitting Provider Student in an Organized Health Care Education/Training Program; Emergency Provider Emergency Medicine Emergency Medical Services; PCP Student in an Organized Health Care Education/Training Program; Visit Provider Physician Assistant Surgical | DX: Z49.01 Encounter for fitting and adjustment of extracorporeal dialysis catheter (principal) | CPT/HCPCS: 36581; 77001 ==

== ENCOUNTER → 2024-01-14 21:13 | Outpatient (BNV) | payer OTHER, SELFPAY | PROVIDERS: Admitting Provider Student in an Organized Health Care Education/Training Program; Emergency Provider Emergency Medicine Emergency Medical Services; PCP Student in an Organized Health Care Education/Training Program; Visit Provider Surgery | DX: E11.621 Type 2 diabetes mellitus with foot ulcer (principal); L97.529 Non-pressure chronic ulcer of other part of left foot with unspecified severity | CPT/HCPCS: 11044; 99222; 99232 ==

== ENCOUNTER → 2024-01-14 21:13 | Outpatient (BNV) | payer OTHER, SELFPAY | PROVIDERS: Admitting Provider Student in an Organized Health Care Education/Training Program; Emergency Provider Emergency Medicine Emergency Medical Services; PCP Student in an Organized Health Care Education/Training Program; Visit Provider Internal Medicine | DX: R78.81 Bacteremia (principal); D64.9 Anemia, unspecified; Z91.199 Patient's noncompliance with other medical treatment and regimen due to unspecified reason; K31.84 Gastroparesis | CPT/HCPCS: 99222 ==

== ENCOUNTER → 2024-01-14 21:13 | Outpatient (BNV) | payer OTHER, SELFPAY | PROVIDERS: Admitting Provider Student in an Organized Health Care Education/Training Program; Emergency Provider Emergency Medicine Emergency Medical Services; PCP Student in an Organized Health Care Education/Training Program; Visit Provider Internal Medicine Critical Care Medicine | DX: I50.9 Heart failure, unspecified (principal); I10 Essential (primary) hypertension; I16.1 Hypertensive emergency; I31.9 Disease of pericardium, unspecified | CPT/HCPCS: 99223 ==

== ENCOUNTER → 2024-01-14 21:13 | Outpatient (BNV) | payer OTHER, SELFPAY | PROVIDERS: Admitting Provider Student in an Organized Health Care Education/Training Program; Emergency Provider Emergency Medicine Emergency Medical Services; PCP Student in an Organized Health Care Education/Training Program; Visit Provider Internal Medicine | DX: N18.6 End stage renal disease (principal); Z91.158 Patient's noncompliance with renal dialysis for other reason; R78.81 Bacteremia | CPT/HCPCS: 99222; 99232 ==

== ENCOUNTER → 2024-01-14 21:13 | Outpatient (BNV) | payer OTHER, SELFPAY | PROVIDERS: Admitting Provider Student in an Organized Health Care Education/Training Program; Emergency Provider Emergency Medicine Emergency Medical Services; PCP Student in an Organized Health Care Education/Training Program; Visit Provider Student in an Organized Health Care Education/Training Program | DX: N18.6 End stage renal disease (principal); Z99.2 Dependence on renal dialysis; Z91.158 Patient's noncompliance with renal dialysis for other reason | CPT/HCPCS: 99223; 99232; 99233; 99239; 99499 ==

== ENCOUNTER 2024-01-30 12:32 | Emergency (ER) | payer OTHER, SELFPAY ==
[2024-01-30] VITALS (8 sets, daily range): BP systolic 154–198; BP diastolic 102–130; PULSE 90–98; RESP 13–22; TEMP 36.3–36.8; O2SAT 96–98; BMI 25.0
--- NOTE | ~2024-01-30 | XR_ITS ---
EXAMINATION: XR CHEST CLINICAL INFORMATION: sob COMPARISON: X-ray dated December 11, 2023. TECHNIQUE: Frontal view of the chest was obtained. FINDINGS: Indistinct margins in the perihilar regions. Heart silhouette appears enlarged. No pneumothorax. No gross consolidation. Left-sided central venous line catheter ends at the right atrium, unchanged. XR/XR chest 1V IMPRESSION: Pulmonary edema. Cardiomegaly versus pericardial effusion. Small layering pleural effusions cannot be excluded. Electronically signed by: Shadi Lopez MD 01/30/2024 03:16 PM EST
--- NOTE | 2024-01-30 12:38 | ED_ITS ---
HPI - General Adult General Chief complaint: General Medical Stated complaint: HIGH BP 190/100,NO AM MED,?MISSED DIALYSIS,PAIN Time Seen by Provider: 01/30/24 12:37 Source: patient, EMS, RN notes reviewed and old records reviewed Mode of arrival: EMS History of Present Illness ED Provider: Urszula Garcia PA-C HPI narrative: 33-year-old female with a past medical history ESRD on hemodialysis (//), HTN, diabetes with diabetic polyneuropathy/retinopathy with legal blindness, PAD s/p bilateral TMA, chronic hypoxic respiratory failure on 4L baseline, CHF with reduced EF, mood disorder, cardiomyopathy, presenting to the ED via EMS from home complaining of feeling generally unwell, fatigue, diffuse myalgias, SOB, nausea, vomiting, and diarrhea. states last received dialysis on Thursday 01/25, missed 01/28 dialysis. Denies fever, cough, chest pain, abdominal pain, lightheadedness / dizziness. Related Data Home Medications ?Medication ?Instructions ?Recorded ?Confirmed albuterol sulfate 90 mcg/actuation 2 puff inhalation Q6H PRN wheezing 01/15/24 01/15/24 aerosol inhaler (Ventolin HFA) lidocaine 5 % topical patch 1 patch topical DAILY 01/15/24 01/15/24 nitroglycerin 0.4 mg sublingual 0.4 mg sublingual DIRECTED PRN 01/15/24 01/15/24 tablet Angina Previous Rx's ?Medication ?Instructions ?Recorded carvedilol 12.5 mg tablet 12.5 mg PO BID 90 days #180 tabs 12/16/23 hydralazine 50 mg tablet 50 mg PO TID 90 days #270 tabs 12/16/23 sulfamethoxazole 400 1 tab PO Q24H #28 tabs 12/16/23 mg-trimethoprim 80 mg tablet (Bactrim) oxycodone 10 mg tablet 10 mg PO Q6H PRN pain #20 tabs 01/26/24 Allergies Allergy/AdvReac Type Severity Reaction Status Date / Time morphine [MORPHINE] Allergy Intermediate Itching Verified 01/30/24 12:43 azithromycin [From Zithromax] Allergy Hives Verified 01/30/24 12:43 gabapentin Allergy Facial Verified 01/30/24 12:43 Swelling tramadol Allergy Facial Verified 01/30/24 12:43 Swelling vancomycin Allergy Anaphylaxis Verified 01/30/24 12:43 Review of Systems 2 Review of Systems: Yes all other systems are reviewed and are negative Constitutional: Constitutional: Reports as per [facility] Past Medical History Attestation statement: The following information was validated with the patient. Source: old records reviewed Medical History Gastroparesis End stage chronic kidney disease Chronic kidney disease Anemia Chronic foot ulcer Plantar ulcer of left foot Major depressive disorder, single episode, severe ESRD (end stage renal disease) Non-compliance with renal dialysis Hypertensive urgency MDD (major depressive disorder), recurrent episode MDD (major depressive disorder) Renal failure Foot ulcer CKD (chronic kidney disease) Hypertension Diabetic foot Hyperkalemia Vomiting Renal failure Hypertension Migraine Chronic pain ESRD on dialysis Non-compliance with renal dialysis Hypertension End-stage renal disease (ESRD) Diabetic foot ulcer associated with type 2 diabetes mellitus Hypertensive emergency Diabetes ESRD needing dialysis Cardiomyopathy HFrEF (heart failure with reduced ejection fraction) Metabolic acidosis delivery delivered Anemia in chronic kidney disease (CKD) CKD (chronic kidney disease) Headache, migraine Abnormal finding on echocardiogram Elevated troponin Chest pain Acute worsening of stage 3 chronic kidney disease Generalized edema Sepsis Cellulitis Pleural effusion CHF (congestive heart failure) (~06/07/22) Tachycardia Atypical chest pain Bone infection PAD (peripheral artery disease) Severe anemia Cellulitis and abscess of foot DM foot ulcer Osteomyelitis Asthma Depression with anxiety Diabetic retinopathy Type 2 diabetes mellitus with hyperglycemia, with long-term current use of insulin Blind right eye Diabetes Back pain Surgical History Tubal ligation status Previous section Hx laparoscopic cholecystectomy Hx of surgical procedure (~09/11/23) 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 Family History Family History Mother Coronary artery disease Myocardial infarction Stroke Diabetes mellitus Father Myocardial infarction Social History Social History Household Members: Family Household Members Other:: Sister Housing: House Are you a primary healthcare insurance sales agent to a significant other at home: No Do you presently have visiting nurse or other home services: No Unable to assess alcohol history related to: Unknown Alcohol intake: never Comment: Remain w/ pt on commode. Patient Tobacco Use Status: Never used Tobacco e-Cigarette/Vaping Use: Never Used Advance Directives: Yes Advance Directives on File: Yes Advance Directives Date on File: 08/28/23 Do you have a plan to hurt others: No Plan service: No Current occupational status: unemployed and disabled Gender identity: Female Physical Exam ED Vital Signs: Vital Signs - 24 hr 01/30/24 12:40 01/30/24 15:21 01/30/24 15:22 Temperature 98.0 F Pulse Rate 96 Respiratory Rate 18 20 Blood Pressure 185/106 H 185/102 H Pulse Oximetry 98 Oxygen Delivery Method Room Air 01/30/24 16:26 Temperature 98.0 F Pulse Rate 91 Respiratory Rate 13 Blood Pressure 154/127 H Pulse Oximetry 98 Oxygen Delivery Method Room Air BMI result Body Mass Index 25.0 Const General: cooperative and no acute distress Orientation/consciousness: patient oriented x3 Limitations: no limitations HENMT Head: Yes normal to inspection and Yes atraumatic Ears: hearing grossly normal bilaterally General nose exam: Normal external nose present Face and sinus: Yes normal facial exam Eyes General: appearance normal, both eyes and all related structures EOM: EOMs intact bilaterally Neck Neck: Yes normal visual inspection and Yes no meningeal signs Resp Effort & Inspection: normal respiratory effort and no respiratory distress Auscultation: clear to auscultation bilaterally and no wheezes Cardio Rate: regular rate Heart sounds: S1 normal heart sound present and S2 normal heart sound present GI Inspection: Yes normal to inspection Palpation (GI): Soft to palpation, nontender, no guarding and not rigid General: Yes no CVA tenderness Back/Spine/Pelvis Back: no CVA tenderness Skin Other: Wounds noted to bilateral lower extremities. No active cellulitis/ erythema/ warmth, fluctuance or induration. No malodor Rashes: no rashes Neuro General: patient oriented x3, tone normal, moves all extremities, no meningeal signs and no focal motor deficits Cranial nerves: Yes CN's II-XII intact bilaterally Extrem General: Yes normal to inspection Course Course Course Narrative: -1442-- no leukocytosis. H&H at patient's baseline. Potassium 5.0. Acute on chronic CKD with BUN of 78, creatinine 7.7 - BNP chronically elevated 7,074. Troponin 37.0 likely from CKD rather than acute ACS 1520--XR chest 1V IMPRESSION: Pulmonary edema. Cardiomegaly versus pericardial effusion. Small layering pleural effusions cannot be excluded. > nephrology paged >1600--spoke with Nephrology, Dr. Siddiqi. Recommended giving patient nitrates for blood pressure. Patient does not need emergent dialysis at this time. Will attempted discharge for dialysis tomorrow at patient's scheduled dialysis center vs admission for dialysis and facility tomorrow. Patient without O2 requirement, maintaining saturations on room air. 1715--ED care transferred to [facility] Sandoval pending repeat troponin and blood pressure monitoring. Anticipate discharge home Medications Administered Discontinued Medications Generic Name Dose Route Start Last Admin Trade Name Freq PRN Reason Stop Dose Admin Acetaminophen 650 mg 01/30/24 12:58 01/30/24 13:14 Acetaminophen 325 Mg Tablet PO 01/30/24 12:59 Not Given ONCE ONE Fentanyl 25 mcg 01/30/24 14:45 01/30/24 15:22 Fentanyl Citrate/Pf 100 Mcg/2 Ml Vial IVPUSH 01/30/24 14:46 25 mcg ONCE ONE Administration Protocol Furosemide 80 mg 01/30/24 14:50 01/30/24 15:21 Furosemide 100 Mg/10 Ml Vial IVPUSH 01/30/24 14:51 80 mg ONCE ONE Administration Protocol Ondansetron HCl 4 mg 01/30/24 14:45 01/30/24 15:22 Ondansetron Hcl 4 Mg/2 Ml Vial IVPUSH 01/30/24 14:46 4 mg ONCE ONE Administration Medical Decision Making Medical Decision Making MDM Narrative: 33-year-old female with a past medical history ESRD on hemodialysis (//), HTN, diabetes with diabetic polyneuropathy/retinopathy with legal blindness, PAD s/p bilateral TMA, chronic hypoxic respiratory failure on 4L baseline, CHF with reduced EF, mood disorder, cardiomyopathy, presenting to the ED via EMS from home complaining of feeling generally unwell, fatigue, diffuse myalgias, SOB, nausea, vomiting, and diarrhea. on exam hypertensive, denies taking blood pressure medication today, NAD, nontoxic appearing, abdomen soft/nontender, lungs CTA. Concern for MYNOR on CKD due to missed dialysis vs viral illness vs metabolic abnormalities. Low suspicion for severe sepsis at this time. Rule out CHF/ fluid overload. Lower suspicion for ACS. Concern for possible gastroenteritis. Plan: EKG, labs, viral studies, CXR, re-evaluate Please refer to course for remaining clinical decision making, interpretation of labs/imaging results, and discussions with consultants and/or family members. Differential Diagnosis Differential Diagnoses: The differential diagnosis associated with the presentation includes As above Admission/Observation Consideration of admission/observation: Escalation of care including admission/observation considered Lab Data MDM Lab Attestation statement: I reviewed the patient's lab results. 01/30/24 13:03 01/30/24 13:03 Labs: Lab Results 01/30/24 Range/Units 13:03 WBC 5.5 (4.8-10.8) X10*3/uL RBC 2.69 L (4.20-5.50) X10*6/uL Hgb 8.0 L (12.0-16.0) g/dl Hct 25.7 L (37.0-47.0) % MCV 95.5 (80.0-98.0) fL MCH 29.7 (27.0-33.0) pg MCHC 31.1 (31.0-35.0) g/dl RDW 15.6 (11.0-16.0) % Plt Count 159 L D (160-400) X10*3/uL MPV 11.6 (9.4-12.3) fL Immature Gran % (Auto) 0.4 (0.0-0.4) % Neut % (Auto) 74.7 H (45-73) % Lymph % (Auto) 10.8 L (20-40) % [place] % (Auto) 10.8 (2-11) % Eos % (Auto) 2.4 (0-4) % Baso % (Auto) 0.9 (0-2) % Lymph # (Auto) 0.6 L (1.2-4.9) X10*3/uL [place] # (Auto) 0.6 (0.1-1.2) X10*3/uL Eos # (Auto) 0.1 (0.0-0.4) X10*3/uL Baso # (Auto) 0.1 (0.0-0.2) X10*3/uL Abs Immat Gran (auto) 0.02 (0.00-0.03) X10*3/uL Absolute Neuts (auto) 4.1 (2.0-8.3) x10*3/uL Absolute Nucleated RBC 0.000 (0.0-0.012) X10*3/uL Nucleated RBC % (auto) 0.0 (0.0-0.2) /100WBC PT 14.5 H (10.9-12.4) SEC INR 1.2 H (0.9-1.1) Sodium 139 (135-145) mmol/L Potassium 5.0 D (3.3-5.1) mmol/L Chloride 107 (96-108) mmol/L Carbon Dioxide 19 L (22-29) mmol/L Anion Gap 18 (12-20) BUN 78 H (9-16) mg/dL Creatinine 7.74 H* (0.5-1.4) mg/dL Estim Creat Clear Calc 9.1 Estimated GFR 6 Random Glucose 123 H (60-115) mg/dL Calcium 8.4 D (8.4-10.2) mg/dL Magnesium 2.9 H (1.6-2.6) mg/dL Total Bilirubin 1.0 (0.0-1.0) mg/dL Direct Bilirubin 0.5 (0.0-0.5) mg/dL AST 29 (5-31) U/L ALT 12 (0-31) U/L Alkaline Phosphatase 194 H (39-117) U/L Total Creatine Kinase 66 (26-140) U/L Troponin I High Sens 37.0 H (<3.5-17.0) ng/L B-Natriuretic Peptide 7074 H (<100) pg/mL Total Protein 7.4 (6.5-8.0) g/dL Albumin 3.4 L (3.5-5.0) g/dL Lipase 65 (8-78) U/L Independent Interpretation I performed an independent interpretation of an: EKG and Plain X-Ray Radiology Impression Discussion of test interpretation with radiology: I have reviewed the radiologist's reading. Independent Historian Clinical information obtained from an independent historian. History obtained from or confirmed by: EMS External Record Review External record reviewed: Inpatient record, Office record, Outpatient record, Prior outpatient labs, Prior outpatient radiology, Primary care record and Outside ED record Tests considered The following testing was considered but not selected: As above Prescription Management I considered prescription management with: Pain Medication and Antibiotic Chronic Conditions Patient?s care impacted by: Diabetes, Hypertension and Other Social Determinants Patient?s care significantly limited by Social Determinants of Health including: Inadequate housing, Low income, Alcoholism and drug addiction in family, Problems related to primary support group, Unemployment, Problems related to employment and Other Social Determinant of Health Discharge Plan Discharge Clinical Impression: Fatigue, Myalgia, Hypertension, ESRD (end stage renal disease) Patient Disposition: Still a Patient Instructions: Hypertension (ED), End Stage Kidney Disease (ED) Additional Instructions: YOU NEED YOUR DIALYSIS TOMORROW PLEASE TAKE ALL YOUR HOME PRESCRIBED MEDICATIONS IF HER SYMPTOMS PERSIST OR WORSEN RETURN TO THE EMERGENCY DEPARTMENT YOUR BLOOD WORK WAS OTHERWISE REASSURING TODAY Prescriptions: No Action carvedilol 12.5 mg Tablet 12.5 mg PO BID 90 Days Qty: 180 0RF Protocol: Hold for SBP/HR < HOLD for SBP < : 90 HOLD for HR < : 60 hydralazine 50 mg Tablet 50 mg PO TID 90 Days Qty: 270 0RF Protocol: Hold for SBP< HOLD for SBP < : 90 sulfamethoxazole-trimethoprim [Bactrim] 400-80 mg tablet 1 tab PO Q24H Qty: 28 0RF lidocaine 5 % adhesive patch,medicated 1 patch topical DAILY nitroglycerin 0.4 mg tablet, sublingual 0.4 mg sublingual DIRECTED PRN (Reason: Angina) albuterol sulfate [Ventolin HFA] 90 mcg/actuation HFA aerosol inhaler 2 puff inhalation Q6H PRN (Reason: wheezing) oxycodone 10 mg tablet 10 mg PO Q6H PRN (Reason: pain) Qty: 20 0RF Rx Instructions: Partial Fill upon patient request. Print Language: [place] Zealander
--- NOTE | 2024-01-30 12:58 | ECG_ITS ---
Test Reason : SOB Blood Pressure : / mmHG Vent. Rate : 097 BPM Atrial Rate : 097 BPM P-R Int : 160 ms QRS Dur : 146 ms QT Int : 420 ms P-R-T Axes : 062 -20 051 degrees QTc Int : 533 ms Normal sinus rhythm Possible Left atrial enlargement Right bundle branch block Abnormal ECG When compared with ECG of 14-JAN-2024 20:00, Nonspecific T wave abnormality now evident in Lateral leads Referred By: Urszula Garcia Electronically Signed By:Vinny Vera
[2024-01-30 13:11] LABS: Basophils Absolute Auto 0.1 X10*3/uL (0.0-0.2); Basophils Percent Auto 0.9 % (0-2); Eosinophils Absolute Auto 0.1 X10*3/uL (0.0-0.4); Eosinophils Percent Auto 2.4 % (0-4); Hematocrit 25.7 % (37.0-47.0); Imm Gran Abs Auto 0.02 X10*3/uL (0.00-0.03); Imm Gran Pct Auto 0.4 % (0.0-0.4); Lymphocytes Absolute Auto 0.6 X10*3/uL (1.2-4.9); Lymphocytes Percent Auto 10.8 % (20-40); MANUAL DIFF FLAG NO; Mean Corpuscular HGB Conc 31.1 g/dl (31.0-35.0); Mean Corpuscular Hemoglobin 29.7 pg (27.0-33.0); Mean Corpuscular Volume 95.5 fL (80.0-98.0); Mean Platelet Volume 11.6 fL (9.4-12.3); Monocytes Absolute Auto 0.6 X10*3/uL (0.1-1.2); Monocytes Percent Auto 10.8 % (2-11); Neutrophils Absolute Auto 4.1 x10*3/uL (2.0-8.3); Neutrophils Percent Auto 74.7 % (45-73); Platelet Count 159 X10*3/uL (160-400); Red Blood Count 2.69 X10*6/uL (4.20-5.50); Red Cell Distribution Width 15.6 % (11.0-16.0); White Blood Count 5.5 X10*3/uL (4.8-10.8)
[2024-01-30 13:17] LABS: INTERNATIONAL NORM RATIO 1.2 (0.9-1.1); Prothrombin Time 14.5 SEC (10.9-12.4)
[2024-01-30 13:28] LABS: Alanine Aminotransferase 12 U/L (0-31); Albumin Level 3.4 g/dL (3.5-5.0); Alkaline Phosphatase 194 U/L (39-117); Anion Gap 18 (12-20); Aspartate Amino Transferase 29 U/L (5-31); Bilirubin Direct 0.5 mg/dL (0.0-0.5); Blood Urea Nitrogen 78 mg/dL (9-16); Calcium 8.4 mg/dL (8.4-10.2); Carbon Dioxide 19 mmol/L (22-29); Chloride 107 mmol/L (96-108); Creatinine Clr Calc Pharmacy 9.1; Estimated Glomerular Filt Rate 6; Glucose Random 123 mg/dL (60-115); Lipase 65 U/L (8-78); Magnesium 2.9 mg/dL (1.6-2.6); Sodium 139 mmol/L (135-145); Total Protein 7.4 g/dL (6.5-8.0)
[2024-01-30 13:53] LABS: B Type Natriuretic Peptide 7074 pg/mL (<100)
[2024-01-30] MEDS: Furosemide 100 MG/10 ML VIAL 80 MG IVPUSH (15:21)
[2024-01-30] MEDS: fentaNYL citrate/PF 100 MCG/2 ML VIAL 25 MCG IVPUSH (15:22)
[2024-01-30] MEDS: ondansetron HCL 4 MG/2 ML VIAL IVPUSH (15:22)
[2024-01-30] MEDS: Nitroglycerin 2 % Oint 1 GM Packet 0.5 INCH TRANSDERMA (16:32)
[2024-01-30 16:59] LABS: Troponin-I High Sensitivity 35.6 ng/L (<3.5-17.0)
[2024-01-30 17:07] LABS: Glucose, Whole Blood 88 mg/dL (60-115)
[2024-01-30 17:15] LABS: Influenza A PCR NEGATIVE (Negative); Influenza B PCR NEGATIVE (Negative); Resp Syncy Virus RNA Qual PCR NEGATIVE (Negative); SARS COV2 PCR INHOUSE NEGATIVE (Negative)
== END 2024-01-30 21:07 | disposition home or self-care (01) ==
PROVIDERS: Physician Assistant; Emergency Provider Emergency Medicine; PCP Student in an Organized Health Care Education/Training Program
DX: R53.83 Other fatigue (principal); M79.10 Myalgia, unspecified site; R06.02 Shortness of breath; E11.22 Type 2 diabetes mellitus with diabetic chronic kidney disease; I13.2 Hypertensive heart and chronic kidney disease with heart failure and with stage 5 chronic kidney disease, or end stage renal disease; I50.9 Heart failure, unspecified; N18.6 End stage renal disease; Z99.2 Dependence on renal dialysis; Z91.199 Patient's noncompliance with other medical treatment and regimen due to unspecified reason; Z03.818 Encounter for observation for suspected exposure to other biological agents ruled out
CPT/HCPCS: 0241U; 36415; 71045; 80048; 80076; 82550; 82947; 83690; 83735; 83880; 84484; 85025; 85610; 93005; 96374; 96375; 99284; 99285; J1940; J2405; J3010

== ENCOUNTER → 2024-01-30 12:58 | Outpatient (BNV) | payer OTHER, SELFPAY | PROVIDERS: Emergency Provider Emergency Medicine; PCP Student in an Organized Health Care Education/Training Program; Visit Provider Internal Medicine Cardiovascular Disease | DX: R94.31 Abnormal electrocardiogram [ECG] [EKG] (principal) | CPT/HCPCS: 93010 ==

== ENCOUNTER → 2024-01-30 12:59 | Outpatient (BNV) | payer OTHER, SELFPAY | PROVIDERS: Emergency Provider Emergency Medicine; PCP Student in an Organized Health Care Education/Training Program; Visit Provider Radiology Diagnostic Radiology | DX: J81.0 Acute pulmonary edema (principal) | CPT/HCPCS: 71045 ==

== ENCOUNTER 2024-02-01 17:01 | Inpatient (IN) | payer OTHER, SELFPAY ==
[2024-02-01] VITALS (12 sets, daily range): BP systolic 139–196; BP diastolic 81–137; PULSE 79–94; RESP 16–18; TEMP 36.4–36.5; O2SAT 93–99; BMI 24.2; BMI 31.8
--- NOTE | 2024-02-01 17:16 | ED.GENADULT ---
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 She states she has not had her dialysis in over 1 week. She was seen here for same yesterday. She was discharged early this morning for dialysis however states she did not go as she did not have transportation. Related Data Home Medications ?Medication ?Instructions ?Recorded ?Confirmed albuterol sulfate 90 mcg/actuation 2 puff inhalation Q6H PRN wheezing 01/15/24 02/01/24 aerosol inhaler (Ventolin HFA) lidocaine 5 % topical patch 1 patch topical DAILY 01/15/24 02/01/24 nitroglycerin 0.4 mg sublingual 0.4 mg sublingual DIRECTED PRN 01/15/24 02/01/24 tablet Angina Previous Rx's ?Medication ?Instructions ?Recorded carvedilol 12.5 mg tablet 12.5 mg PO BID 90 days #180 tabs 12/16/23 hydralazine 50 mg tablet 50 mg PO TID 90 days #270 tabs 12/16/23 oxycodone 10 mg tablet 10 mg PO Q6H PRN pain #20 tabs 01/26/24 sulfamethoxazole 400 1 tab PO DAILY #26 tabs 02/04/24 mg-trimethoprim 80 mg tablet tamsulosin 0.4 mg capsule 0.4 mg PO BEDTIME #30 caps 02/06/24 Allergies Allergy/AdvReac Type Severity Reaction Status Date / Time morphine [MORPHINE] Allergy Intermediate Itching Verified 02/01/24 17:38 azithromycin [From Zithromax] Allergy Hives Verified 02/01/24 17:38 gabapentin Allergy Facial Verified 02/01/24 17:38 Swelling tramadol Allergy Facial Verified 02/01/24 17:38 Swelling vancomycin Allergy Anaphylaxis Verified 02/01/24 17:38 Review of Systems Review of Systems: Yes all other systems are reviewed and are negative [facility] Past Medical History Attestation statement: The following information was validated with the patient. Source: old records reviewed and nursing notes reviewed Medical History Non-compliance with renal dialysis Decompensated heart failure Congestive heart failure Renal failure Hypertension, uncontrolled Medical non-compliance Pericarditis Unspecified hypertension, condition or complication Metabolic acidosis Gastroparesis End stage chronic kidney disease Chronic kidney disease Anemia Chronic foot ulcer Plantar ulcer of left foot Major depressive disorder, single episode, severe ESRD (end stage renal disease) Non-compliance with renal dialysis Hypertensive urgency MDD (major depressive disorder), recurrent episode MDD (major depressive disorder) Renal failure Foot ulcer CKD (chronic kidney disease) Hypertension Diabetic foot Hyperkalemia Vomiting Renal failure Hypertension Migraine Chronic pain ESRD on dialysis Non-compliance with renal dialysis Hypertension End-stage renal disease (ESRD) Diabetic foot ulcer associated with type 2 diabetes mellitus Hypertensive emergency Diabetes ESRD needing dialysis Cardiomyopathy HFrEF (heart failure with reduced ejection fraction) delivery delivered Anemia in chronic kidney disease (CKD) CKD (chronic kidney disease) Headache, migraine Abnormal finding on echocardiogram Elevated troponin Chest pain Acute worsening of stage 3 chronic kidney disease Generalized edema Sepsis Cellulitis Pleural effusion CHF (congestive heart failure) (~06/07/22) Tachycardia Atypical chest pain Bone infection PAD (peripheral artery disease) Severe anemia Cellulitis and abscess of foot DM foot ulcer Osteomyelitis Asthma Depression with anxiety Diabetic retinopathy Type 2 diabetes mellitus with hyperglycemia, with long-term current use of insulin Blind right eye Diabetes Back pain Surgical History Tubal ligation status Previous section Hx laparoscopic cholecystectomy Hx of surgical procedure (~09/11/23) 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 Family History Family History Mother Coronary artery disease Myocardial infarction Stroke Diabetes mellitus Father Myocardial infarction Social History Social History Household Members: Family Household Members Other:: Sister Housing: Apartment Are you a primary manager care to a significant other at home: No Do you presently have visiting nurse or other home services: No Unable to assess alcohol history related to: Unknown Alcohol intake: never Comment: Remain w/ pt on commode. Patient Tobacco Use Status: Never used Tobacco e-Cigarette/Vaping Use: Never Used Advance Directives Date on File: 08/28/23 service: No Current occupational status: unemployed and disabled Gender identity: Female Physical Exam ED Vital Signs: Vital Signs - 24 hr 02/01/24 17:36 02/01/24 17:38 02/01/24 18:34 Temperature 97.6 F Pulse Rate 91 Respiratory Rate 16 16 16 Blood Pressure 184/103 H Pulse Oximetry 96 Oxygen Delivery Method Room Air 02/01/24 19:06 Temperature 97.7 F Pulse Rate 89 Respiratory Rate 18 Blood Pressure 188/107 H Pulse Oximetry 97 Oxygen Delivery Method Room Air BMI result Body Mass Index 24.2 hypertensive General: Well appearing, in no acute distress. Skin: Warm, dry, intact. No rashes or lesions. Head: Normocephalic, atraumatic. EENT: Hearing is intact b/l. right eye blindness. Moist mucous membranes.? Neck: Supple without LAD Cardiac: Chest wall symmetric. RRR Lungs: Normal respiratory effort without accessory muscle use. diminished at bases. No rales, rhonchi, or wheezes.? Abdomen: Soft, non-tender, non-distended. No rebound tenderness or guarding. Positive BS x4. Back: No midline spinous or paraspinal tenderness. No step off deformity. Ext: BLE TMA Neuro: AOx3. Normal speech Course Course Course Narrative: CBC shows leukopenia. anemia of chronic disease, H&H around baseline. chemistry showing hyperkalemia to 5.5 which has worsened since potassium of 5 two days ago. acute on chronic kidney injury with BUN 97 and creatinine 8.95. Kidney function has worsened since BUN of 78 and creatinine of 7.74 two days ago secondary to missing dialysis. > I have concern that patient will not be compliant with outpatient dialysis. she was set up with an appointment to be dialyzed this morning however did not have transportation. I reached out to on-call water reuse program manager Dr. Chavez who would like the patient to be dialyzed first thing in the morning. She is recommending 10 lokelma and nicardipine drip for blood pressure control. I discussed admission with hospitalist Dr. Noonan however since patient will be on nicardipine drip, she needs to be monitored in the ICU. Discussed with grazing aide Dr. Dumont who has accepted admission to ICU. Medications Administered Discontinued Medications Generic Name Dose Route Start Last Admin Trade Name Freq PRN Reason Stop Dose Admin Carvedilol 12.5 mg 02/02/24 09:00 02/06/24 09:00 Carvedilol 12.5 Mg Tablet PO 12.5 mg BID VASILE Administration Protocol Diphenhydramine HCl 25 mg 02/01/24 20:22 02/01/24 20:30 Diphenhydramine Hcl 50 Mg/Ml Vial IVPUSH 02/01/24 20:23 25 mg ONCE ONE Administration Diphenhydramine HCl 25 mg 02/02/24 15:08 02/02/24 15:54 Diphenhydramine Hcl 50 Mg/Ml Vial IVPUSH 02/02/24 15:09 25 mg ONCE ONE Administration Diphenhydramine HCl 50 mg 02/02/24 22:19 02/06/24 14:51 Diphenhydramine Hcl 25 Mg Capsule PO 50 mg Q6H PRN Administration Itching Diphenhydramine HCl 25 mg 02/03/24 09:08 02/06/24 01:52 Diphenhydramine Hcl 50 Mg/Ml Vial IVPUSH 25 mg Q6H PRN Administration itching, severe Heparin Sodium (Porcine) 5,000 unit 02/01/24 21:00 02/06/24 14:59 Heparin Sodium,Porcine 5,000 Unit/Ml Vial SUBCUT Not Given TID VASILE Hydralazine HCl 50 mg 02/02/24 09:00 02/06/24 14:51 Hydralazine Hcl 50 Mg Tablet PO 50 mg TID VASILE Administration Protocol Hydromorphone HCl 0.5 mg 02/01/24 17:57 02/01/24 18:34 Hydromorphone Hcl 0.5 Mg/0.5 Ml Syringe IVPUSH 02/01/24 17:58 0.5 mg ONCE ONE Administration Protocol Hydromorphone HCl 0.1 mg 02/03/24 19:36 02/03/24 21:00 Hydromorphone Hcl 0.5 Mg/0.5 Ml Syringe IVPUSH 02/03/24 19:37 0.1 mg ONCE ONE Administration Protocol Nicardipine HCl 25 mg/ Sodium 250 mls @ 0 mls/hr 02/01/24 20:15 02/02/24 12:11 Chloride IVCONT Infused .Q0M [facility] Titration Protocol Per Protocol Insulin Human Lispro 0 unit 02/02/24 07:30 02/06/24 11:01 Insulin Lispro 100 Unit/Ml 3 Ml Vial SUBCUT Not Given QIDACHS [facility] Protocol Lidocaine 1 patch 02/03/24 09:00 02/06/24 09:01 Lidocaine 4 % Patch Adh..Patch TRANSDERMA Not Given DAILY [facility] Metoclopramide HCl 10 mg 02/01/24 20:22 02/01/24 20:30 Metoclopramide Hcl 10 Mg/2 Ml Vial IVPUSH 02/01/24 20:23 10 mg ONCE ONE Administration Ondansetron HCl 4 mg 02/01/24 17:58 02/01/24 18:34 Ondansetron Hcl 4 Mg/2 Ml Vial IVPUSH 02/01/24 17:59 4 mg ONCE ONE Administration Ondansetron HCl 4 mg 02/01/24 19:31 02/01/24 20:48 Ondansetron Hcl 4 Mg/2 Ml Vial IVPUSH 02/01/24 19:32 Not Given ONCE ONE Ondansetron HCl 4 mg 02/01/24 20:44 02/06/24 14:51 Ondansetron Hcl 4 Mg/2 Ml Vial IVPUSH 4 mg Q8H PRN Administration Nausea and Vomiting Oxycodone HCl 10 mg 02/02/24 05:00 02/06/24 14:50 Oxycodone Hcl Immed Release 5 Mg Tablet PO 10 mg Q6H PRN Administration Pain, Severe (Pain Scale 7-10) Sodium Zirconium Cyclosilicate 10 gm 02/01/24 19:31 02/01/24 20:35 Sodium Zirconium Cyclosilicate 10 Gm Powd.Pack PO 02/01/24 19:32 10 gm ONCE ONE Administration Tamsulosin HCl 0.4 mg 02/05/24 21:00 02/05/24 19:45 Tamsulosin Hcl 0.4 Mg Capsule PO 0.4 mg BEDTIME VASILE Administration Trimethoprim/Sulfamethoxazole 1 tab 02/03/24 09:00 02/06/24 09:01 Sulfamethox/Trimeth 400/80 Tablet PO 1 tab DAILY VASILE Administration Medical Decision Making Medical Decision Making [facility] Narrative: 33 year old female with pmhx significant for ESRD on hemodialysis (//), HTN, 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 Differential diagnosis includes anemia, electrolyte abnormality, arrhythmia, viral syndrome, gastroenteritis, viral syndrome Plan for labs, ekg, re-evaluation Differential Diagnosis Differential Diagnoses: The differential diagnosis associated with the presentation includes as above. Admission/Observation Consideration of admission/observation: Escalation of care including admission/observation considered Patient admitted to ICU Consult Healthcare Provider Management of the patient was discussed with: Hospitalist and Scrum Master Fishing Line Winding Machine Operator - Dr. Dumont Hospitalist - Dr. Noonan Administrative Tech - Dr. Chavez Lab Data [facility] Lab Attestation statement: I reviewed the patient's lab results. as above. 02/02/24 12:17 02/02/24 12:15 Labs: Lab Results 02/01/24 Range/Units 18:26 WBC 4.2 L (4.8-10.8) X10*3/uL RBC 2.79 L (4.20-5.50) X10*6/uL Hgb 8.5 L (12.0-16.0) g/dl Hct 26.4 L (37.0-47.0) % MCV 94.6 (80.0-98.0) fL MCH 30.5 (27.0-33.0) pg MCHC 32.2 (31.0-35.0) g/dl RDW 15.9 (11.0-16.0) % Plt Count 236 D (160-400) X10*3/uL MPV 11.4 (9.4-12.3) fL Immature Gran % (Auto) 0.7 H (0.0-0.4) % Neut % (Auto) 69.8 (45-73) % Lymph % (Auto) 13.2 L (20-40) % Clare % (Auto) 13.0 H (2-11) % Eos % (Auto) 1.4 (0-4) % Baso % (Auto) 1.9 (0-2) % Lymph # (Auto) 0.6 L (1.2-4.9) X10*3/uL Clare # (Auto) 0.6 (0.1-1.2) X10*3/uL Eos # (Auto) 0.1 (0.0-0.4) X10*3/uL Baso # (Auto) 0.1 (0.0-0.2) X10*3/uL Abs Immat Gran (auto) 0.03 (0.00-0.03) X10*3/uL Absolute Neuts (auto) 3.0 (2.0-8.3) x10*3/uL Absolute Nucleated RBC 0.000 (0.0-0.012) X10*3/uL Nucleated RBC % (auto) 0.0 (0.0-0.2) /100WBC Sodium 136 (135-145) mmol/L Potassium 5.5 H (3.3-5.1) mmol/L Chloride 106 (96-108) mmol/L Carbon Dioxide 15 L (22-29) mmol/L Anion Gap 21 H (12-20) BUN 97 H (9-16) mg/dL Creatinine 8.95 H* (0.5-1.4) mg/dL Estim Creat Clear Calc 8.2 Estimated GFR 5 Random Glucose 84 (60-115) mg/dL Calcium 8.5 (8.4-10.2) mg/dL Magnesium 2.8 H (1.6-2.6) mg/dL Total Bilirubin 1.2 H (0.0-1.0) mg/dL AST 38 H (5-31) U/L ALT 14 (0-31) U/L Alkaline Phosphatase 193 H (39-117) U/L Total Protein 7.4 (6.5-8.0) g/dL Albumin 3.5 (3.5-5.0) g/dL Lipase 39 (8-78) U/L Independent Interpretation I performed an independent interpretation of an: EKG Interpretation: EKG showing NSR with rate of 87 bpm, QT 464, no acute ischemic changes or ST elevations Independent Historian Clinical information obtained from an independent historian. History obtained from or confirmed by: EMS External Record Review External record reviewed: Inpatient record, Office record, Outpatient record, Prior outpatient labs, Prior outpatient radiology, Primary care record and Outside ED record Chronic Conditions Patient?s care impacted by: Hypertension and Other (ESRD) Social Determinants Patient?s care significantly limited by Social Determinants of Health including: Other Social Determinant of Health Critical Care Time Critical Care Time Critical Care Time: Yes Total Critical Care Time: 40 Attestation: Critical care time in the amount of 40 minutes has been provided to the patient in terms of direct patient care, frequent reevaluation, consultation with hospitalist, ICU, and nephrology, review and interpretation of medical data and results, and management of potentially life-threatening conditions. This is all outside of any medical procedures. Discharge Plan Discharge Clinical Impression: ESRD (end stage renal disease) on dialysis, Acute hyperkalemia Patient Disposition: Admitted As Inpatient Interventions: Admission Worksheet (ED) Last Done: 02/01/24 21:58 Discharge Date/Time: 02/01/24 21:58
--- NOTE | 2024-02-01 17:57 | ECG_ITS ---
Test Reason : SOB Blood Pressure : / mmHG Vent. Rate : 087 BPM Atrial Rate : 087 BPM P-R Int : 170 ms QRS Dur : 156 ms QT Int : 464 ms P-R-T Axes : 028 -12 041 degrees QTc Int : 558 ms Normal sinus rhythm Possible Left atrial enlargement Right bundle branch block Abnormal ECG When compared with ECG of 30-JAN-2024 13:05, No significant change was found Referred By: Yashira Lopez Electronically Signed By:Vinny Vera
--- NOTE | 2024-02-01 18:03 | PC.NURSE ---
patient vomited x 1
--- NOTE | 2024-02-01 18:25 | MHC.EDTECH ---
attempted EKG patient refused at this time. states she will do it after zofran given.
[2024-02-01 18:30] LABS: MANUAL DIFF FLAG NO
[2024-02-01 18:32] LABS: Basophils Absolute Auto 0.1 X10*3/uL (0.0-0.2); Basophils Percent Auto 1.9 % (0-2); Eosinophils Absolute Auto 0.1 X10*3/uL (0.0-0.4); Eosinophils Percent Auto 1.4 % (0-4); Hematocrit 26.4 % (37.0-47.0); Hemoglobin 8.5 g/dl (12.0-16.0); Imm Gran Abs Auto 0.03 X10*3/uL (0.00-0.03); Imm Gran Pct Auto 0.7 % (0.0-0.4); Lymphocytes Absolute Auto 0.6 X10*3/uL (1.2-4.9); Lymphocytes Percent Auto 13.2 % (20-40); Mean Corpuscular HGB Conc 32.2 g/dl (31.0-35.0); Mean Corpuscular Hemoglobin 30.5 pg (27.0-33.0); Mean Corpuscular Volume 94.6 fL (80.0-98.0); Mean Platelet Volume 11.4 fL (9.4-12.3); Monocytes Absolute Auto 0.6 X10*3/uL (0.1-1.2); Neutrophils Percent Auto 69.8 % (45-73); Platelet Count 236 X10*3/uL (160-400); Red Blood Count 2.79 X10*6/uL (4.20-5.50); Red Cell Distribution Width 15.9 % (11.0-16.0); White Blood Count 4.2 X10*3/uL (4.8-10.8)
[2024-02-01] MEDS: HYDROmorphone HCl 0.5 MG/0.5 ML SYRINGE IVPUSH (18:34)
[2024-02-01] MEDS: ondansetron HCL 4 MG/2 ML VIAL IVPUSH (18:34)
[2024-02-01 19:02] LABS: Alanine Aminotransferase 14 U/L (0-31); Albumin Level 3.5 g/dL (3.5-5.0); Alkaline Phosphatase 193 U/L (39-117); Anion Gap 21 (12-20); Aspartate Amino Transferase 38 U/L (5-31); Bilirubin Total 1.2 mg/dL (0.0-1.0); Blood Urea Nitrogen 97 mg/dL (9-16); Calcium 8.5 mg/dL (8.4-10.2); Carbon Dioxide 15 mmol/L (22-29); Chloride 106 mmol/L (96-108); Creatinine Clr Calc Pharmacy 8.2; Estimated Glomerular Filt Rate 5; Glucose Random 84 mg/dL (60-115); Lipase 39 U/L (8-78); Magnesium 2.8 mg/dL (1.6-2.6); Potassium 5.5 mmol/L (3.3-5.1); Sodium 136 mmol/L (135-145); Total Protein 7.4 g/dL (6.5-8.0)
--- NOTE | 2024-02-01 19:31 | W.PM.DNNEP ---
Subjective Subjective Date of Service: 02/01/24 This patient was seen during dialysis. Physical Exam Vital Signs: Vital Signs: Last Vital Signs Temp 97.7 F 02/01/24 19:06 Pulse 89 02/01/24 19:06 Resp 18 02/01/24 19:06 BP 188/107 H 02/01/24 19:06 Pulse Ox 97 02/01/24 19:06 O2 Del Method Room Air 02/01/24 19:06 BMI result Body Mass Index 24.2 Assessment & Plan Assessment and plan (1) Non-compliance with renal dialysis: Status: Acute Plan MIssed dialysis Potassium 5.5 [id number] Labs reviewed Saturation 96% plan; Lokelma 10mg stat Nicardipine drip for high BP ( if unable to tolerate po meds) will arrange for dialysis early tomorrow morning HD 4 hours Blood flow 400, Dialysate flow 600 K ;2 ( per protocol) calcium 2.5 Hco3 36 Na 137 heparin free UF 3.4-4 liter Time Spent With Patient Time: Total time managing care of this patient today ____ minutes. Procedures Date of Service Date of Service: 02/01/24
[2024-02-01] MEDS: diphenhydrAMINE HCL 50 MG/ML VIAL 25 MG IVPUSH (20:30)
[2024-02-01] MEDS: Metoclopramide HCl 10 MG/2 ML VIAL IVPUSH (20:30)
[2024-02-01] MEDS: Sodium Zirconium Cyclosilicate 10 GM POWD.PACK PO (20:35)
--- NOTE | 2024-02-01 20:35 | PC.NURSE ---
Jena METAL FINISHER cuff presser to bedside, verbal orders to start Nicardipine drip at 2.5mg/hr and to titrate BP no lower than 160 systolic
--- NOTE | 2024-02-01 20:49 | P.HPCC_ITS ---
History of Present Illness Date of Service: 02/01/24 Attending physician on admission: Kelsey Dumont Chief Complaint: Abdominal pain Patient is a 33-year-old female with a past medical history of? end-stage renal disease on hemodialysis ( //)? with noncompliance,? [id number]-juqokauiq diabetes mellitus, diabetic neuropathy/? retinopathy with legal blindness,? ? peripheral arterial disease status post bilateral TMA, poorly controlled hypertension due to noncompliance with medications, chronic hypoxic respiratory failure on 4 L baseline supplemental oxygen, congestive heart failure with reduced ejection fraction, cardiomyopathy,? mood disorder, and chronic pain who presented to the emergency department? via EMS with abdominal pain.? She reported? not being able to make to dialysis for over a week due to transportation issues,? also reports compliance with hypertensive medications.? Blood pressure in the emergency department? with systolics of 190s to 200s.? She is alert and oriented x 3,? only complaining of nausea and mild headache.? Laboratory data significant for potassium 5.5, serum bicarb 15, BUN 97, creatinine 8.95, and? Venous gas:? 7./11 Review of Systems 2 Review of Systems: Yes all other systems are reviewed and are negative PMFSH Past Medical History Medical History (Updated 02/01/24 @ 21:17 by Barbara Potter NP) Metabolic acidosis Gastroparesis End stage chronic kidney disease Chronic kidney disease Anemia Chronic foot ulcer Plantar ulcer of left foot Major depressive disorder, single episode, severe ESRD (end stage renal disease) Non-compliance with renal dialysis Hypertensive urgency MDD (major depressive disorder), recurrent episode MDD (major depressive disorder) Renal failure Foot ulcer CKD (chronic kidney disease) Hypertension Diabetic foot Hyperkalemia Vomiting Renal failure Hypertension Migraine Chronic pain ESRD on dialysis Non-compliance with renal dialysis Hypertension End-stage renal disease (ESRD) Diabetic foot ulcer associated with type 2 diabetes mellitus Hypertensive emergency Diabetes ESRD needing dialysis Cardiomyopathy HFrEF (heart failure with reduced ejection fraction) delivery delivered Anemia in chronic kidney disease (CKD) CKD (chronic kidney disease) Headache, migraine Abnormal finding on echocardiogram Elevated troponin Chest pain Acute worsening of stage 3 chronic kidney disease Generalized edema Sepsis Cellulitis Pleural effusion CHF (congestive heart failure) (~06/07/22) Tachycardia Atypical chest pain Bone infection PAD (peripheral artery disease) Severe anemia Cellulitis and abscess of foot DM foot ulcer Osteomyelitis Asthma Depression with anxiety Diabetic retinopathy Type 2 diabetes mellitus with hyperglycemia, with long-term current use of insulin Blind right eye Diabetes Back pain Family History Family History Mother Coronary artery disease Myocardial infarction Stroke Diabetes mellitus Father Myocardial infarction Surgical History Surgical History Tubal ligation status Previous section Hx laparoscopic cholecystectomy Hx of surgical procedure (~09/11/23) 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 Social History Social History Household Members: Family Household Members Other:: Sister Housing: Apartment Are you a primary career technical education teacher to a significant other at home: No Do you presently have visiting nurse or other home services: No Unable to assess alcohol history related to: Unknown Alcohol intake: never Comment: Remain w/ pt on commode. Patient Tobacco Use Status: Never used Tobacco Smoked in Last 30 Days: No e-Cigarette/Vaping Use: Never Used Use of substances other than those prescribed or required for medical reasons: No Have you been hit, kicked, punched, or otherwise hurt by someone within the past year? If so, by whom?: No Do you feel safe in your current relationship?: Yes Is there a partner from a previous relationship who is making you feel unsafe now?: No Are you made to feel afraid or neglected: No Advance Directives: Yes Advance Directives on File: Yes Advance Directives Date on File: 08/28/23 Recently lost weight without trying: No Patient : No : No Poor oral hygiene: Yes service: No Current occupational status: unemployed and disabled Gender identity: Female Meds Allergies Allergy/AdvReac Type Severity Reaction Status Date / Time morphine [MORPHINE] Allergy Intermediate Itching Verified 02/01/24 17:38 azithromycin [From Zithromax] Allergy Hives Verified 02/01/24 17:38 gabapentin Allergy Facial Verified 02/01/24 17:38 Swelling tramadol Allergy Facial Verified 02/01/24 17:38 Swelling vancomycin Allergy Anaphylaxis Verified 02/01/24 17:38 Active Medications: Current Medications Heparin Sodium (Porcine) (Heparin Sodium,Porcine 5,000 Unit/Ml Vial) 5,000 unit SUBCUT TID VASILE Nicardipine HCl 25 mg/ Sodium (Chloride) 250 mls @ 0 mls/hr IVCONT .Q0M [facility]; Protocol Last Admin: 02/01/24 20:30 Dose: 2.5 mg/hr, 25 mls/hr Ondansetron HCl (Ondansetron Hcl 4 Mg/2 Ml Vial) 4 mg IVPUSH Q8H PRN PRN Reason: Nausea and Vomiting Home Medications ?Medication ?Instructions ?Recorded ?Confirmed ?Last Taken ?Type albuterol sulfate 90 mcg/actuation 2 puff inhalation Q6H PRN wheezing 01/15/24 02/01/24 Unknown History aerosol inhaler (Ventolin HFA) lidocaine 5 % topical patch 1 patch topical DAILY 01/15/24 02/01/24 02/01/24 History nitroglycerin 0.4 mg sublingual 0.4 mg sublingual DIRECTED PRN 01/15/24 02/01/24 Unknown History tablet Angina Physical Exam 2 Vital Signs: Vital Signs: Last Vital Signs Temp 97.7 F 02/01/24 19:06 Pulse 92 02/01/24 20:30 Resp 18 02/01/24 19:06 BP 196/121 H 02/01/24 20:30 Pulse Ox 97 02/01/24 19:06 O2 Del Method Room Air 02/01/24 19:06 BMI result Body Mass Index 24.2 ?General:? Alert oriented x3 no acute distress.? Speaking full sentences.?Following all commands. ?HEENT:? Head is normocephalic, atraumatic, right eye blindness, Buccal mucosa is dry, Neck is supple ?Cardiac:? Clear S1-S2, no murmurs rubs or gallops. ?Pulmonary:? Diminished at bases, no wheezes, rales or rhonchi. ?Abdomen:? ?Abdomen soft, non-tender, non-distended. Normal bowel sounds. ?Musculoskeletal:? Moving all upper extremities upon request a major joints, there is no crepitus or tenderness.?BLE TMA ?Neurologic:? No focal deficits noted.Motor strength as above.?? ?Skin:? Intact, no lesions, edema, erythema, clubbing or cyanosis.? No ulcers. Results Labs 02/01/24 18:26 02/01/24 18:26 Labs: Laboratory Results - last 24 hr 02/01/24 18:26 MCV 94.6 MCH 30.5 MCHC 32.2 RDW 15.9 Plt Count 236 D MPV 11.4 Immature Gran % (Auto) 0.7 H Neut % (Auto) 69.8 Lymph % (Auto) 13.2 L [place] % (Auto) 13.0 H Eos % (Auto) 1.4 Baso % (Auto) 1.9 Lymph # (Auto) 0.6 L [place] # (Auto) 0.6 Eos # (Auto) 0.1 Baso # (Auto) 0.1 Abs Immat Gran (auto) 0.03 Absolute Neuts (auto) 3.0 Absolute Nucleated RBC 0.000 Nucleated RBC % (auto) 0.0 Anion Gap 21 H Estim Creat Clear Calc 8.2 Estimated GFR 5 Random Glucose 84 Calcium 8.5 Magnesium 2.8 H Total Bilirubin 1.2 H AST 38 H ALT 14 Alkaline Phosphatase 193 H Total Protein 7.4 Albumin 3.5 Lipase 39 Assessment and Plan (1) Hypertensive emergency: Status: Acute (2) ESRD (end stage renal disease) on dialysis: Status: Acute (3) Acute hyperkalemia: Status: Acute (4) MYNOR (acute kidney injury): Status: Inactive (5) Metabolic acidosis: Status: Acute Plan 33-year-old female with a past medical history of? end-stage renal disease on hemodialysis ( //)? with noncompliance,? [id number] diabetes mellitus, diabetic neuropathy/? retinopathy with legal blindness,? peripheral arterial disease status post bilateral TMA, poorly controlled hypertension due to noncompliance with medications, chronic hypoxic respiratory failure on 4 L baseline supplemental oxygen, congestive heart failure with reduced ejection fraction, cardiomyopathy,? mood disorder, and chronic pain with opioid seeking behavior? admitted to ICU for hypertensive emergency due to noncompliance with hemodialysis and medication regimen? Neuro:? no acute issues?? Cardiac:??? Hypertensive? emergency- ? patient reports noncompliance with dialysis and? blood pressure medications.? Reports she had a headache earlier,? but now has resolved.? EKG with no changes.? Was started on nicardipine in the emergency department,? we will continue. Will not lower blood pressure aggressively due to patient has a history of noncompliance to medications and high systolic blood pressures in the past Pulmonary:?? ?No acute issues Renal:? ?End-stage renal disease on hemodialysis? with MYNOR- ? blood gas showed metabolic acidosis, potassium,? elevated to 5.5,? EKG with no acute changes.? Nephrology, Dr Chavez,? consulted by ED provider,? who advised for Lokelma, nicardipine and dialysis tomorrow morning.? Appreciate nephrology? recommendations.? We will reach out if patient status worsens.? Endo:? Underlying history of diabetes mellitus: Check pocs and will add insulin ID: ? no acute issues pending. GI:? No acute issues.?? Heme/Onc:? No acute issues. Psych:? No acute issues. Miscellaneous:? No acute issues. Prophylaxis:? Heparin, ? does not require GI prophylaxis Diet:? Cardiac/ Renal? CODE: FULL CODE Critical care time:? x 60 minutes Case discussed with attending Dr Dumont
[2024-02-01] MEDS: niCARdipine HCL 25 MG in 0.9 % Sodium Chloride 240 ML IVCONT (20:51)
--- NOTE | 2024-02-01 20:56 | PHA.MEDREC ---
Addendum entered by Ashvin Ramey [facility] 02/01/24 21:14: med rec checked by [facility] Addendum entered by Matilde Lange 02/01/24 21:04: Spoke to patient to ask about bactrim. patient states she is no longer on. Last time she took her medication was today at noon. Original Note: Pharmacy Consult ? Medication Reconciliation Pharmacy has completed the medication reconciliation. [place] [facility] utilized claims and discharge packet to confirm med list.
--- NOTE | 2024-02-01 21:01 | PC.NURSE ---
patient awake and alert. skin pale, warm, dry. resp even and non labored. speaking in full, clear sentences. reports that abdominal pain and nausea is better at this time. aware of plan of care for ICU admit, patient refusing 2nd IV line
--- NOTE | 2024-02-01 21:57 | PC.NURSE ---
pt has $240 epps, patient states that she does not want it locked up and that someone is picking it up tomorrow.
[2024-02-01 22:10] LABS: Glucose, Whole Blood 93 mg/dL (60-115)
[2024-02-01 22:14] LABS: VBG Base Excess -8.3 mmol/L; VBG HCO3 17 mmol/L (22-26); VBG pCO2 35 mmHg; VBG pH 7.29 (7.32-7.43); VBG pO2 57 mmHg
[2024-02-01 22:29] LABS: Venous Blood Gas Refer to POC result
[2024-02-02] VITALS (29 sets, daily range): BP systolic 124–190; BP diastolic 68–137; PULSE 73–90; RESP 12–19; TEMP 36.2–36.4; O2SAT 97–100; BMI 32.3
[2024-02-02 07:25] LABS: Glucose, Whole Blood 58 mg/dL (60-115)
[2024-02-02] MEDS: hydrALAZINE HCl 50 MG TABLET PO ×3 (07:32→21:00)
[2024-02-02] MEDS: carvediloL 12.5 MG TABLET PO ×2 (07:32→21:01)
[2024-02-02] MEDS: oxyCODONE HCl Immed Release 5 MG TABLET 10 MG PO ×2 (07:32→13:44)
[2024-02-02 07:49] LABS: Glucose, Whole Blood 61 mg/dL (60-115)
[2024-02-02 08:48] LABS: Glucose, Whole Blood 94 mg/dL (60-115)
--- NOTE | 2024-02-02 10:59 | MHC.CM.PN ---
IMM 02/02/24, EMR REVIEWED, PT ADMITTED W/HYPERTENSIVE EMERGENCY/ACUTE RENAL FAILURE FROM MISSED OUTPT DIALYSIS, CM MET W/PT WHO REPORTS NOTHING HAS CHANGED SINCE LAST ADMIT, PT STILL LIVES W/HER SISTER REJI, USES A WC/DIABETIC SUPPLIES AND HAS OUTPT HD AT [facility] T//SUN, PT'S GOAL FOR DC IS HOME. PT DOES REOPRT SHE USED TO BE ON HOME O2 W/[facility] HOWEVER THEY TOOK HER CONCENTRATOR BACK, CM HAS DISCUSSED W/RESPIRATORY IN ICU AND THEY WILL LOOK INTO IT. PCP/HCP ON FILE VERIFIED.
[2024-02-02 11:29] LABS: Glucose, Whole Blood 92 mg/dL (60-115)
--- NOTE | 2024-02-02 11:31 | PM.CCPN ---
Subjective Subjective Date of Service: 02/02/24 Interval History: 33-year-old lady with underlying history of end-stage renal disease on hemodialysis poorly compliant with treatments, diabetes mellitus with neuropathy and retinopathy, peripheral arterial disease status post bilateral TMA, poorly-controlled hypertension, chronic hypoxic respiratory failure on 4 L supplemental oxygen, systolic heart failure mood disorder, and chronic vein admitted on 02/01/2024 with hemodialysis/medication noncompliance resulting in hypertension urgency requiring nicardipine drip. Titrated off nicardipine drip overnight. Critical Care Time (minutes): 45 Physical Exam Vital Signs: Vital Signs: Last Vital Signs Temp 97.1 F 02/02/24 08:53 Pulse 76 02/02/24 11:00 Resp 17 02/02/24 10:00 BP 134/75 02/02/24 11:00 Pulse Ox 100 02/02/24 11:00 O2 Del Method Nasal Cannula 02/02/24 11:00 O2 Flow Rate 4 02/02/24 11:00 BMI result Body Mass Index 32.3 Const: General: no acute distress, alert and awake Nutritional Appearance: obese Eyes: Sclerae: sclerae normal EOM: EOMs intact bilaterally Neck: Neck: Yes no lymphadenopathy, Yes trachea midline and Yes supple Resp: Effort & Inspection: normal respiratory effort and no respiratory distress Auscultation: clear to auscultation bilaterally Cardio: Rate: regular rate Rhythm: regular rhythm Heart sounds: no gallops, no murmurs and no rubs GI: Palpation (GI): Soft to palpation and Other GI palpation findings present ( Nontender) Auscultation: normal bowel sounds Extrem: Other: Bilateral TMA General: No clubbing and No cyanosis Objective Data Labs 02/01/24 18:26 02/01/24 18:26 Labs: Laboratory Results - last 24 hr 02/01/24 02/01/24 02/01/24 18:26 21:27 22:05 WBC 4.2 L RBC 2.79 L Hgb 8.5 L Hct 26.4 L MCV 94.6 MCH 30.5 MCHC 32.2 RDW 15.9 Plt Count 236 D MPV 11.4 Immature Gran % (Auto) 0.7 H Neut % (Auto) 69.8 Lymph % (Auto) 13.2 L [place] % (Auto) 13.0 H Eos % (Auto) 1.4 Baso % (Auto) 1.9 Lymph # (Auto) 0.6 L [place] # (Auto) 0.6 Eos # (Auto) 0.1 Baso # (Auto) 0.1 Abs Immat Gran (auto) 0.03 Absolute Neuts (auto) 3.0 Absolute Nucleated RBC 0.000 Nucleated RBC % (auto) 0.0 VBG pH 7.29 L VBG pCO2 35 VBG pO2 57 VBG HCO3 17 L VBG O2 Saturation 77.0 VBG Base Excess -8.3 Sodium 136 Potassium 5.5 H Chloride 106 Carbon Dioxide 15 L Anion Gap 21 H BUN 97 H Creatinine 8.95 H* Estim Creat Clear Calc 8.2 Estimated GFR 5 POC Glucose 93 Random Glucose 84 Calcium 8.5 Magnesium 2.8 H Total Bilirubin 1.2 H AST 38 H ALT 14 Alkaline Phosphatase 193 H Total Protein 7.4 Albumin 3.5 Lipase 39 02/02/24 02/02/24 02/02/24 07:20 07:44 08:42 WBC RBC Hgb Hct MCV MCH MCHC RDW Plt Count MPV Immature Gran % (Auto) Neut % (Auto) Lymph % (Auto) [place] % (Auto) Eos % (Auto) Baso % (Auto) Lymph # (Auto) [place] # (Auto) Eos # (Auto) Baso # (Auto) Abs Immat Gran (auto) Absolute Neuts (auto) Absolute Nucleated RBC Nucleated RBC % (auto) VBG pH VBG pCO2 VBG pO2 VBG HCO3 VBG O2 Saturation VBG Base Excess Sodium Potassium Chloride Carbon Dioxide Anion Gap BUN Creatinine Estim Creat Clear Calc Estimated GFR POC Glucose 58 L* 61 94 Random Glucose Calcium Magnesium Total Bilirubin AST ALT Alkaline Phosphatase Total Protein Albumin Lipase 02/02/24 11:25 WBC RBC Hgb Hct MCV MCH MCHC RDW Plt Count MPV Immature Gran % (Auto) Neut % (Auto) Lymph % (Auto) [place] % (Auto) Eos % (Auto) Baso % (Auto) Lymph # (Auto) [place] # (Auto) Eos # (Auto) Baso # (Auto) Abs Immat Gran (auto) Absolute Neuts (auto) Absolute Nucleated RBC Nucleated RBC % (auto) VBG pH VBG pCO2 VBG pO2 VBG HCO3 VBG O2 Saturation VBG Base Excess Sodium Potassium Chloride Carbon Dioxide Anion Gap BUN Creatinine Estim Creat Clear Calc Estimated GFR POC Glucose 92 Random Glucose Calcium Magnesium Total Bilirubin AST ALT Alkaline Phosphatase Total Protein Albumin Lipase Progress Note: A&P Assessment and plan (1) Medical non-compliance: Status: Acute (2) Congestive heart failure: Status: Acute (3) ESRD (end stage renal disease) on dialysis: Status: Acute (4) Diabetes: Status: Acute (5) PAD (peripheral artery disease): Status: Acute Plan Assessment: 33-year-old lady with underlying diabetic end-stage renal disease on hemodialysis, systolic heart failure, peripheral artery disease status post bilateral TMA, chronic hypoxic respiratory failure, chronic treatment/medication noncompliance admitted with hypotensive Angel Crawford after missing dialysis session initially requiring nicardipine drip, now titrated off. Plan: Neuro: No acute issues. Cardiac: Hypertensive urgency, resolved, titrated off nicardipine drip. Continue baseline regimen. Underlying systolic heart failure and peripheral arterial disease. Pulmonary: No acute issues. Underlying chronic hypoxic respiratory failure on 4 L of supplemental oxygen. Renal: Hyperkalemia secondary to poor compliance with hemodialysis treatments. Nephrology service care appreciated. Continue hemodialysis. Endo: No acute issues. Underlying diabetes mellitus GI: No acute issues. ID: No acute issues Heme/Onc: No acute issues. Psych: No acute issues. Miscellaneous: No acute issues. Prophylaxis: Heparin Diet: Diabetic Critical care time spent: Quality Stroke Does the patient have a stroke diagnosis?: No VTE Prior VTE?: No VTE Risk Level:: Medical - moderate - high VTE Device Contraindication: Treatment Not Indicated VTE Drug Contraindication: N/A - Med Ordered
[2024-02-02 12:23] LABS: MANUAL DIFF FLAG NO
[2024-02-02 12:28] LABS: Basophils Absolute Auto 0.1 X10*3/uL (0.0-0.2); Basophils Percent Auto 2.1 % (0-2); Eosinophils Absolute Auto 0.1 X10*3/uL (0.0-0.4); Eosinophils Percent Auto 3.9 % (0-4); Hematocrit 22.9 % (37.0-47.0); Hemoglobin 7.6 g/dl (12.0-16.0); Imm Gran Abs Auto 0.01 X10*3/uL (0.00-0.03); Imm Gran Pct Auto 0.4 % (0.0-0.4); Lymphocytes Absolute Auto 0.4 X10*3/uL (1.2-4.9); Lymphocytes Percent Auto 13.7 % (20-40); Mean Corpuscular HGB Conc 33.2 g/dl (31.0-35.0); Mean Corpuscular Hemoglobin 30.6 pg (27.0-33.0); Mean Corpuscular Volume 92.3 fL (80.0-98.0); Monocytes Absolute Auto 0.4 X10*3/uL (0.1-1.2); Monocytes Percent Auto 14.4 % (2-11); Neutrophils Absolute Auto 1.9 x10*3/uL (2.0-8.3); Neutrophils Percent Auto 65.5 % (45-73); Platelet Count 212 X10*3/uL (160-400); Red Blood Count 2.48 X10*6/uL (4.20-5.50); Red Cell Distribution Width 15.6 % (11.0-16.0); White Blood Count 2.9 X10*3/uL (4.8-10.8)
[2024-02-02 12:30] LABS: Venous Blood Gas Refer to POC result
[2024-02-02 12:31] LABS: VBG Base Excess -2.4 mmol/L; VBG HCO3 22 mmol/L (22-26); VBG pCO2 36 mmHg; VBG pH 7.38 (7.32-7.43); VBG pO2 53 mmHg
[2024-02-02 13:25] LABS: Alanine Aminotransferase 14 U/L (0-31); Albumin Level 3.3 g/dL (3.5-5.0); Alkaline Phosphatase 185 U/L (39-117); Anion Gap 16 (12-20); Aspartate Amino Transferase 32 U/L (5-31); Blood Urea Nitrogen 52 mg/dL (9-16); Calcium 8.5 mg/dL (8.4-10.2); Carbon Dioxide 20 mmol/L (22-29); Chloride 104 mmol/L (96-108); Creatinine Clr Calc Pharmacy 17.7; Estimated Glomerular Filt Rate 10; Glucose Random 89 mg/dL (60-115); Magnesium 2.3 mg/dL (1.6-2.6); Phosphorus 4.5 mg/dL (2.7-4.5); Potassium 3.6 mmol/L (3.3-5.1); Sodium 136 mmol/L (135-145); Total Protein 7.1 g/dL (6.5-8.0)
--- NOTE | 2024-02-02 14:13 | PM.EVENT ---
Event Note Date of Service: 02/02/24 Event Note: hospitalist accept note 33yo F with ESRD on HD, 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, PAD s/p bilateral TMTA, HTN, chronic hypoxia on 4L O2, HFrEF, chronic pain, recent line infections with Pseudomonas and Stenotrophomonas missed HD x 1 wk due to transportation issues and admitted to ICU for nicardipine drip; titrated off resume home regimen of carvedilol + hydralazine resume HD, Nephrology contacted transfer to C Time Spent With Patient Time: Total time managing care of this patient today ____ minutes.
[2024-02-02] MEDS: diphenhydrAMINE HCL 50 MG/ML VIAL 25 MG IVPUSH (15:54)
[2024-02-02 16:49] LABS: Glucose, Whole Blood 104 mg/dL (60-115)
[2024-02-02 21:32] LABS: Glucose, Whole Blood 141 mg/dL (60-115)
[2024-02-03] VITALS (10 sets, daily range): BP systolic 120–178; BP diastolic 60–98; PULSE 74–80; RESP 14–18; TEMP 36.4–37.1; O2SAT 98–100
[2024-02-03 08:52] LABS: Glucose, Whole Blood 71 mg/dL (60-115)
[2024-02-03] MEDS: carvediloL 12.5 MG TABLET PO ×2 (08:54→20:56)
[2024-02-03] MEDS: hydrALAZINE HCl 50 MG TABLET PO ×3 (08:54→20:56)
[2024-02-03] MEDS: Sulfamethox/Trimeth 400/80 TABLET 1 TAB PO (08:54)
[2024-02-03] MEDS: diphenhydrAMINE HCL 50 MG/ML VIAL 25 MG IVPUSH ×3 (09:33→23:44)
--- NOTE | 2024-02-03 09:44 | HO.PM.IMPN ---
Subjective Subjective Date of Service: 02/03/24 Interval History: refusing insulin + POCs c/o generalized itchiness claims never got antibiotic for line infection Review of Systems Review of Systems: Yes all other systems are reviewed and are negative Physical Exam Vital Signs: Vital Signs: Last Vital Signs Temp 97.5 F 02/02/24 20:00 Pulse 75 02/03/24 08:00 Resp 18 02/03/24 08:00 BP 178/98 H 02/03/24 08:41 Pulse Ox 100 02/03/24 00:00 O2 Del Method Room Air 02/03/24 00:00 O2 Flow Rate 4 02/02/24 20:00 BMI result Body Mass Index 32.3 Gen: chronically ill, blind HEENT: sclera anicteric, moist mucus membranes Neck: supple Lungs: clear to auscultation bilaterally Heart: regular rate and rhythm, no murmurs Abd: soft, non-tender, non-distended Ext: no edema, R TMA, L TMA Skin: warm/well-perfused, dry ulcers on both TMA stumps Neuro: alert and oriented x3, no focal findings Psych: appropriate affect Objective Data Active Medications Albuterol Sulfate (Albuterol Sulfate 90 Mcg 8 Gm Inhaler) 2 puff INHALE Q6H PRN PRN Reason: wheezing Carvedilol (Carvedilol 12.5 Mg Tablet) 12.5 mg PO BID [facility]; Protocol Last Admin: 02/03/24 08:54 Dose: 12.5 mg Documented By: JON Diphenhydramine HCl (Diphenhydramine Hcl 25 Mg Capsule) 50 mg PO Q6H PRN PRN Reason: Itching Diphenhydramine HCl (Diphenhydramine Hcl 50 Mg/Ml Vial) 25 mg IVPUSH Q6H PRN PRN Reason: itching, severe Last Admin: 02/03/24 09:33 Dose: 25 mg Documented By: JON Heparin Sodium (Porcine) (Heparin Sodium,Porcine 5,000 Unit/Ml Vial) 5,000 unit SUBCUT TID [facility] Last Admin: 02/03/24 08:26 Dose: Not Given Documented By: JON Non-Admin Reason: Patient Refused Hydralazine HCl (Hydralazine Hcl 50 Mg Tablet) 50 mg PO TID [facility]; Protocol Last Admin: 02/03/24 08:54 Dose: 50 mg Documented By: JON Insulin Human Lispro (Insulin Lispro 100 Unit/Ml 3 Ml Vial) 0 unit SUBCUT QIDACHS [facility]; Protocol Last Admin: 02/03/24 08:00 Dose: Not Given Documented By: JON Non-Admin Reason: refused blood sugar test & food Lidocaine (Lidocaine 4 % Patch Adh..Patch) 1 patch TRANSDERMA DAILY [facility] Last Admin: 02/03/24 08:49 Dose: Not Given Documented By: JON Non-Admin Reason: Patient Refused Nitroglycerin (Nitroglycerin 0.4 Mg Tab.Subl) 0.4 mg SUBLINGUAL Q5MX3 PRN PRN Reason: Angina Ondansetron HCl (Ondansetron Hcl 4 Mg/2 Ml Vial) 4 mg IVPUSH Q8H PRN PRN Reason: Nausea and Vomiting Oxycodone HCl (Oxycodone Hcl Immed Release 5 Mg Tablet) 10 mg PO Q6H PRN PRN Reason: Pain, Severe (Pain Scale 7-10) Last Admin: 02/02/24 13:44 Dose: 10 mg Documented By: JON Trimethoprim/Sulfamethoxazole (Sulfamethox/Trimeth 400/80 Tablet) 1 tab PO DAILY [facility] Last Admin: 02/03/24 08:54 Dose: 1 tab Documented By: JON Labs 02/02/24 12:17 02/02/24 12:15 Labs: Laboratory Results - last 24 hr 02/02/24 02/02/24 02/02/24 11:25 12:15 12:17 MCV 92.3 MCH 30.6 MCHC 33.2 RDW 15.6 Plt Count 212 MPV 11.0 Immature Gran % (Auto) 0.4 Neut % (Auto) 65.5 Lymph % (Auto) 13.7 L [place] % (Auto) 14.4 H Eos % (Auto) 3.9 Baso % (Auto) 2.1 H Lymph # (Auto) 0.4 L [place] # (Auto) 0.4 Eos # (Auto) 0.1 Baso # (Auto) 0.1 Abs Immat Gran (auto) 0.01 Absolute Neuts (auto) 1.9 L Absolute Nucleated RBC 0.000 Nucleated RBC % (auto) 0.0 VBG pH VBG pCO2 VBG pO2 VBG HCO3 VBG O2 Saturation VBG Base Excess Anion Gap 16 Estim Creat Clear Calc 17.7 Estimated GFR 10 POC Glucose 92 Random Glucose 89 Calcium 8.5 Phosphorus 4.5 Magnesium 2.3 Total Bilirubin 1.0 AST 32 H ALT 14 Alkaline Phosphatase 185 H Total Protein 7.1 Albumin 3.3 L 02/02/24 02/02/24 02/02/24 12:26 16:46 21:28 MCV MCH MCHC RDW Plt Count MPV Immature Gran % (Auto) Neut % (Auto) Lymph % (Auto) [place] % (Auto) Eos % (Auto) Baso % (Auto) Lymph # (Auto) [place] # (Auto) Eos # (Auto) Baso # (Auto) Abs Immat Gran (auto) Absolute Neuts (auto) Absolute Nucleated RBC Nucleated RBC % (auto) VBG pH 7.38 VBG pCO2 36 VBG pO2 53 VBG HCO3 22 VBG O2 Saturation 77.0 VBG Base Excess -2.4 Anion Gap Estim Creat Clear Calc Estimated GFR POC Glucose 104 141 H Random Glucose Calcium Phosphorus Magnesium Total Bilirubin AST ALT Alkaline Phosphatase Total Protein Albumin 02/03/24 08:44 MCV MCH MCHC RDW Plt Count MPV Immature Gran % (Auto) Neut % (Auto) Lymph % (Auto) [place] % (Auto) Eos % (Auto) Baso % (Auto) Lymph # (Auto) [place] # (Auto) Eos # (Auto) Baso # (Auto) Abs Immat Gran (auto) Absolute Neuts (auto) Absolute Nucleated RBC Nucleated RBC % (auto) VBG pH VBG pCO2 VBG pO2 VBG HCO3 VBG O2 Saturation VBG Base Excess Anion Gap Estim Creat Clear Calc Estimated GFR POC Glucose 71 Random Glucose Calcium Phosphorus Magnesium Total Bilirubin AST ALT Alkaline Phosphatase Total Protein Albumin Assessment and Plan (1) ESRD (end stage renal disease) on dialysis: Status: Acute Plan d3 33yo F with ESRD on HD, 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, PAD s/p bilateral TMTA, HTN, chronic hypoxia on 4L O2, HFrEF, chronic pain, recent line infections with Pseudomonas and Stenotrophomonas missed HD x 1 wk due to transportation issues and admitted to ICU for nicardipine drip; titrated off and stepped down to telemetry 02/02/24 ESRD - dialyzed 02/02/24, Nephro consulted, continue HD as per home schedule HTN emergency - off nicardipine drip; resumed carvedilol + hydralazine; questionable compliance at home recent Stenotrophomonas line infection - pt claims did not get prescription for [id number]-SMX upon last discharge; supposed to be on this for 1 mo per ID consultation; will restart today DM2 - muna-dose lispro though refusing for now; if continues to refuse, consider Psychitry consultation chronic pain - prn oxycodone; refusing lidocaine patch VTE ppx - UFH dispo - eventual home In my clinical judgment, the patient requires continued inpatient hospitalization for the following reasons: HTN emergency Total time managing care of this patient today: 40 minutes. Quality Stroke Does the patient have a stroke diagnosis?: No VTE Prior VTE?: No VTE Risk Level:: Medical - moderate - high VTE Device Contraindication: Treatment Not Indicated VTE Drug Contraindication: N/A - Med Ordered
[2024-02-03 11:49] LABS: Glucose, Whole Blood 99 mg/dL (60-115)
[2024-02-03 16:50] LABS: Glucose, Whole Blood 132 mg/dL (60-115)
[2024-02-03 20:24] LABS: Glucose, Whole Blood 110 mg/dL (60-115)
[2024-02-03] MEDS: HYDROmorphone HCl 0.5 MG/0.5 ML SYRINGE 0.1 MG IVPUSH (21:00)
[2024-02-04 03:28] VITALS: BP 149/72; PULSE 77; RESP 16; TEMP 36; O2SAT 100
[2024-02-04] MEDS: diphenhydrAMINE HCL 50 MG/ML VIAL 25 MG IVPUSH ×3 (06:20→21:23)
[2024-02-04 09:19] LABS: Glucose, Whole Blood 103 mg/dL (60-115)
[2024-02-04 09:20] VITALS: BP 146/77; PULSE 77; RESP 18; TEMP 36.4; O2SAT 98
[2024-02-04] MEDS: oxyCODONE HCl Immed Release 5 MG TABLET 10 MG PO ×3 (09:38→23:56)
[2024-02-04] MEDS: carvediloL 12.5 MG TABLET PO ×2 (09:38→21:23)
[2024-02-04] MEDS: Sulfamethox/Trimeth 400/80 TABLET 1 TAB PO (09:38)
[2024-02-04] MEDS: hydrALAZINE HCl 50 MG TABLET PO ×3 (09:38→21:23)
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
[2024-02-04 10:57] LABS: Glucose, Whole Blood 98 mg/dL (60-115)
[2024-02-04 11:02] VITALS: BP 153/75; PULSE 76; RESP 18; TEMP 36.5; O2SAT 98
--- NOTE | 2024-02-04 14:09 | HO.WOUND ---
Wound Consult: Initial 33yr old female? admitted to [facility] on 02/01/24 - See progress notes and H&P for detailed history.? 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 Wound consult follow up for Bilateral lower foot wounds.? Todays assessment is detailed below. ?? Left Heel? - Diabetic Wound - adherent yellow slough - No odor noted no induration no erythema and no fluctance noted at this time? -?New superior wound noted - dark pigmented tissue - epidermal lifting - no open wound bed noted. Recommend Iodosrob for 1 week and then at time of d/c switch to Alginate packing and change every other day. - Iodosorb to keep dry and stable and allow for antimicrobial properties and break through biofilm.?The patient continues to express localized pain to left heel. Left Plantar Diabetic Wound? - Intact resurfaced - callused. No fluctuance no induration no warmth noted. Pad with dry gauze when dressing. ? Right Plantar Diabetic Wound? -dry resurfacing wound bed - dry black dark epidermal layer noted - this does not appear to be attached to wound bed but rather the callused tissue around the wound bed. Overall appear resurfacing. no induration no fluctance no odor noted. Dry gauze dressing to protect from lifting of the dry attached callus. Right Lateral Diabetic Wound? -? Diabetic Wound? - Resurfaced intact tissue Right Dorsal Diabetic Wound? - Resurfaced intact tissue Left TMA site - resurfaced healed? - no topical interventions needed at this time. Recommendations: 1. Turn and Reposition every 2 hours and as needed for patient comfort.? Use pillows or wedges to support off loading positions. 2. Off Load all bony prominences with use of pillows and heel boots if needed.? Apply Preventative foams where needed. ? 3. Monitor for incontinence and moisture control, use barrier creams when needed for prevention and treatment. 4. Provide adequate and supplemental nutrition.? 5. Order low air loss mattress. 6. When applicable maintain blood glucose levels per Providers order. 7. Left Heel - Elevate heels off of bed surface with pillows.?Cleanse with saline, pat dry. ?Apply Iodosorb / Iodoflex to wound bed cover with gauze and tape. ?Change every other day.?? Iodosorb tube left at bedside. Note the Iodosorb will be applied brown and over the course of time as the Iodine is absorbed into the wound bed the color will change to yellow / cream signifying time to replace.??Iodoflex / Iodosorb is only available from wound care nurse. At time of discharge patient should continue with Iodosorb for 1 week total and then switch to Durafiber to the wound bed and change every other day as well. 8. Right Plantar wound? - Dry gauze dressing. Re-consult wound care Nurse for wound deterioration or wound changes.
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
[2024-02-04 15:26] VITALS: BP 136/73; PULSE 76; RESP 18; TEMP 36.1; O2SAT 99
[2024-02-04 17:09] LABS: Glucose, Whole Blood 96 mg/dL (60-115)
[2024-02-04 20:00] VITALS: BP 144/79; PULSE 74; RESP 18; TEMP 36; O2SAT 99
[2024-02-04 23:56] VITALS: BP 153/86; PULSE 75; RESP 16; TEMP 35.9; O2SAT 96
[2024-02-05 03:19] VITALS: BP 141/75; PULSE 76; RESP 14; TEMP 35.9; O2SAT 95
[2024-02-05] MEDS: diphenhydrAMINE HCL 50 MG/ML VIAL 25 MG IVPUSH ×3 (04:04→19:49)
[2024-02-05 07:30] VITALS: BP 146/77; PULSE 70; RESP 20; TEMP 36; O2SAT 96
[2024-02-05 07:35] LABS: Glucose, Whole Blood 90 mg/dL (60-115)
[2024-02-05] MEDS: carvediloL 12.5 MG TABLET PO ×2 (07:56→19:44)
[2024-02-05] MEDS: oxyCODONE HCl Immed Release 5 MG TABLET 10 MG PO ×2 (07:56→19:45)
[2024-02-05] MEDS: hydrALAZINE HCl 50 MG TABLET PO ×2 (07:56→19:44)
[2024-02-05] MEDS: Sulfamethox/Trimeth 400/80 TABLET 1 TAB PO (07:57)
--- NOTE | 2024-02-05 10:39 | MHC.CM.PN ---
Addendum entered by Ksenia Villafuerte RN 02/05/24 16:21: PT DISCHARGE ON HOLD UNTIL TOMORROW D/T LATE DIALYSIS Original Note: ANTIC PT WILL BE MEDICALLY CLEARED TO DC HOME AFTER INPT HD, PT REPORTS SHE IS AGREEABLE TO PLAN IF SHE DOES NOT HAVE NAUSEA/VOMITING WHICH SHE REPORTS FREQUENTLY HAVING AFTER HD, PT WILL NEED TRANSPORT HOME.
[2024-02-05 10:54] LABS: Glucose, Whole Blood 99 mg/dL (60-115)
[2024-02-05 11:05] VITALS: BP 152/78; PULSE 73; RESP 18; TEMP 36.4; O2SAT 98
--- NOTE | 2024-02-05 14:52 | P.PNIM_ITS ---
Subjective Subjective Date of Service: 02/05/24 Interval History: Scheduled to undergo hemodialysis today, patient did not void in last 24 hours bladder scan for 1000 mL, admits to have no urge to void. Review of Systems All other system reviewed and are negative. Physical Exam 2 Vital Signs: Vital Signs: Last Vital Signs Temp 97.5 F 02/05/24 11:05 Pulse 73 02/05/24 11:05 Resp 18 02/05/24 11:05 BP 152/78 H 02/05/24 11:05 Pulse Ox 98 02/05/24 11:05 O2 Del Method Nasal Cannula 02/05/24 11:05 O2 Flow Rate 4 02/05/24 11:05 BMI result Body Mass Index 32.3 Const: Other: Gen: Awake alert, blind HEENT: sclera anicteric, moist mucus membranes Neck: supple Lungs: clear to auscultation bilaterally Heart: regular rate and rhythm, no murmurs Abd: soft, non-tender, non-distended Ext: no edema, R TMA, L TMA Skin: warm/well-perfused, dry ulcers on both TMA stumps Neuro: alert and oriented x3, no focal findings Psych: appropriate affect Objective Data Active Medications Albuterol Sulfate (Albuterol Sulfate 90 Mcg 8 Gm Inhaler) 2 puff INHALE Q6H PRN PRN Reason: wheezing Carvedilol (Carvedilol 12.5 Mg Tablet) 12.5 mg PO BID [facility]; Protocol Last Admin: 02/05/24 07:56 Dose: 12.5 mg Documented By: DAE Diphenhydramine HCl (Diphenhydramine Hcl 25 Mg Capsule) 50 mg PO Q6H PRN PRN Reason: Itching Diphenhydramine HCl (Diphenhydramine Hcl 50 Mg/Ml Vial) 25 mg IVPUSH Q6H PRN PRN Reason: itching, severe Last Admin: 02/05/24 11:34 Dose: 25 mg Documented By: DAE Heparin Sodium (Porcine) (Heparin Sodium,Porcine 5,000 Unit/Ml Vial) 5,000 unit SUBCUT TID [facility] Last Admin: 02/05/24 11:14 Dose: Not Given Documented By: DAE Non-Admin Reason: Patient Refused Hydralazine HCl (Hydralazine Hcl 50 Mg Tablet) 50 mg PO TID [facility]; Protocol Last Admin: 02/05/24 07:56 Dose: 50 mg Documented By: DAE Insulin Human Lispro (Insulin Lispro 100 Unit/Ml 3 Ml Vial) 0 unit SUBCUT QIDACHS [facility]; Protocol Last Admin: 02/05/24 11:08 Dose: Not Given Documented By: DAE Non-Admin Reason: No Insulin Coverage Lidocaine (Lidocaine 4 % Patch Adh..Patch) 1 patch TRANSDERMA DAILY [facility] Last Admin: 02/05/24 07:53 Dose: Not Given Documented By: DAE Non-Admin Reason: Patient Refused Nitroglycerin (Nitroglycerin 0.4 Mg Tab.Subl) 0.4 mg SUBLINGUAL Q5MX3 PRN PRN Reason: Angina Ondansetron HCl (Ondansetron Hcl 4 Mg/2 Ml Vial) 4 mg IVPUSH Q8H PRN PRN Reason: Nausea and Vomiting Oxycodone HCl (Oxycodone Hcl Immed Release 5 Mg Tablet) 10 mg PO Q6H PRN PRN Reason: Pain, Severe (Pain Scale 7-10) Last Admin: 02/05/24 07:56 Dose: 10 mg Documented By: DAE Trimethoprim/Sulfamethoxazole (Sulfamethox/Trimeth 400/80 Tablet) 1 tab PO DAILY [facility] Last Admin: 02/05/24 07:57 Dose: 1 tab Documented By: DAE Labs 02/02/24 12:17 02/02/24 12:15 Labs: Laboratory Results - last 24 hr 02/04/24 02/05/24 02/05/24 17:02 07:29 10:47 POC Glucose 96 90 99 Assessment and Plan (1) Diabetes: Status: Acute (2) ESRD (end stage renal disease) on dialysis: Status: Acute (3) Noncompliance: Status: Acute Plan 33yo F with ESRD on HD, 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, PAD s/p bilateral TMTA, HTN, chronic hypoxia on 4L O2, HFrEF, chronic pain, recent line infections with Pseudomonas and Stenotrophomonas missed HD x 1 wk due to transportation issues and admitted to ICU for nicardipine drip; titrated off and stepped down to telemetry 02/02/24 ESRD - dialyzed 02/02/24, scheduled for hemodialysis today, continue HD Sunday and Saturdays Ride for hemodialysis has been arranged for outpatient HTN emergency -blood pressure improved, continue carvedilol + hydralazine; strongly recommend to take all home medications as prescribed recent Stenotrophomonas line infection - pt claims did not get prescription for TMP-SMX upon last discharge; supposed to be on this for 1 month per ID consultation; started back on 12/03 Urinary retention straight cath drain 1300 mL of urine will place on Flomax give voiding trials if unable to void will place Carrero catheter. DM2 stable blood sugars continue correction dose lispro chronic pain -continue prn oxycodone; avoid IV narcotics VTE ppx - UFH dispo - eventual home In my clinical judgment, the patient requires continued inpatient hospitalization for the following reasons: HTN emergency Quality Stroke Does the patient have a stroke diagnosis?: No VTE Prior VTE?: No VTE Risk Level:: Medical - moderate - high VTE Device Contraindication: Treatment Not Indicated VTE Drug Contraindication: N/A - Med Ordered
[2024-02-05 18:17] LABS: Glucose, Whole Blood 118 mg/dL (60-115)
[2024-02-05 19:14] VITALS: BP 205/98; PULSE 90; RESP 16; TEMP 35.7; O2SAT 94
[2024-02-05] MEDS: Tamsulosin HCL 0.4 MG CAPSULE PO (19:45)
[2024-02-05 20:33] LABS: Glucose, Whole Blood 163 mg/dL (60-115)
[2024-02-06] VITALS: BP 165/80; PULSE 86; RESP 20; TEMP 36.4; O2SAT 97
[2024-02-06] MEDS: oxyCODONE HCl Immed Release 5 MG TABLET 10 MG PO ×3 (01:51→14:50)
[2024-02-06] MEDS: diphenhydrAMINE HCL 50 MG/ML VIAL 25 MG IVPUSH (01:52)
[2024-02-06 04:00] VITALS: BP 173/79; PULSE 85; RESP 20; TEMP 36.4; O2SAT 97
[2024-02-06 07:11] VITALS: BP 179/92; PULSE 84; RESP 18; TEMP 36.3; O2SAT 95
[2024-02-06 07:20] LABS: Glucose, Whole Blood 98 mg/dL (60-115)
[2024-02-06] MEDS: carvediloL 12.5 MG TABLET PO (09:00)
[2024-02-06] MEDS: hydrALAZINE HCl 50 MG TABLET PO ×2 (09:00→14:51)
[2024-02-06] MEDS: Sulfamethox/Trimeth 400/80 TABLET 1 TAB PO (09:01)
[2024-02-06] MEDS: diphenhydrAMINE HCL 25 MG CAPSULE 50 MG PO ×2 (09:08→14:51)
--- NOTE | 2024-02-06 09:44 | MHC.CM.PN ---
Addendum entered by Ksenia Villafuerte RN 02/06/24 10:42: PER NSG/HOSPITALIST PT WILL NEED TO VOID PRIOR TO DC AND MAY DC W/[facility] CATH IF PT FAILS VOIDING TRIAL, TRANSPORT RESCHEDULED FOR 3:30PM. Original Note: PT MEDICALLY CLEARED FOR DC HOME AT 1PM VIA [facility] FOR BLS TRNASPORT
[2024-02-06 11:00] LABS: Glucose, Whole Blood 133 mg/dL (60-115)
[2024-02-06 11:12] VITALS: BP 164/93; PULSE 84; RESP 18; TEMP 36.3; O2SAT 96
--- NOTE | 2024-02-06 14:11 | P.DS_ITS ---
DS: Providers Provider Date of Service: 02/06/24 Date of admission: 02/01/24 20:44 Date of discharge: 02/06/24 Primary care physician: Genevieve Casillas MD Consults: 02/02/24 07:10 Consult to Nephrology Stat Consulting Provider: Kisha Chavez Reason for consultation: Consulted in ED 01/31 for Urgent HD 02/02/24 08:38 Consult to Wound Care Routine Reason for consultation: chronic foot wounds DS: Diagnosis Discharge Diagnosis (1) Diabetes: Status: Acute (2) ESRD (end stage renal disease) on dialysis: Status: Acute (3) Noncompliance: Status: Acute DS: Summary Hospital Course Hospital Course: History of presenting illness: Date of Service: 02/01/24 Attending physician on admission: Kelsey Dumont Chief Complaint: Abdominal pain Patient is a 33-year-old female with a past medical history of? end-stage renal disease on hemodialysis ( //)? with noncompliance,? 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 ? peripheral arterial disease status post bilateral TMA, poorly controlled hypertension due to noncompliance with medications, chronic hypoxic respiratory failure on 4 L baseline supplemental oxygen, congestive heart failure with reduced ejection fraction, cardiomyopathy,? mood disorder, and chronic pain who presented to the emergency department? via EMS with abdominal pain.? She reported? not being able to make to dialysis for over a week due to transportation issues,? also reports compliance with hypertensive medications.? Blood pressure in the emergency department? with systolics of 190s to 200s.? She is alert and oriented x 3,? only complaining of nausea and mild headache.? Laboratory data significant for potassium 5.5, serum bicarb 15, BUN 97, creatinine 8.95, and? Venous gas:? 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, PAD s/p bilateral TMTA, HTN, chronic hypoxia on 4L O2, HFrEF, chronic pain, recent line infections with Pseudomonas and Stenotrophomonas, missed HD x 1 wk due to transportation issues and admitted to ICU for hypertensive emergency, acute hyperkalemia, metabolic acidosis, treated in ICU nicardipine drip; titrated off and stepped down to telemetry 02/02/24, was dialyzed on 02/02/2024, acute hyperkalemia resolved acidosis improved patient placed back on home medications hydralazine and Coreg blood pressure is stable she has been strongly recommended compliance with hemodialysis and all home medications since hemodynamically stable, she is being discharged home with strong recommendations to continue hemodialysis on Saturdays. Arrangements have been made for transportation to hemodialysis. In regard to recent recent Stenotrophomonas line infection, pt claims did not get prescription for TMP-SMX upon last discharge; supposed to be on this for 1 mo per ID consultation; therefore Bactrim started on 02 01 prescription for 26 more days given, strongly recommended compliance with antibiotics. DM2 recommend to continue home medications, blood sugars stable. chronic pain - recommend to continue prn oxycodone and lidocaine patch. Urinary retention, noted to have elevated bladder scan of 1000 mL, straight cath for 1300 mL patient started on Flomax and was able to urinate 150 mL prior to discharge, patient declined bladder scan to check postvoid residual, since patient asymptomatic with no prior issues with urination will discharge home. Time Attestation Discharge Coordination Time (in mins): 36 Quality: Safe Use of Opioids Does Pt have an Active Cancer Diagnosis on the Problem List?: No Quality: Stroke Does the patient have a stroke diagnosis?: No Physical Exam Vital Signs: Vital Signs: Last Vital Signs Temp 97.4 F 02/06/24 11:12 Pulse 84 02/06/24 11:12 Resp 18 02/06/24 11:12 BP 164/93 H 02/06/24 11:12 Pulse Ox 96 02/06/24 11:12 O2 Del Method Nasal Cannula 02/06/24 11:12 O2 Flow Rate 4 02/06/24 11:12 BMI result Body Mass Index 32.3 Const: Other: Gen: Awake alert, blind HEENT: sclera anicteric, moist mucus membranes Neck: supple Lungs: clear to auscultation bilaterally Heart: regular rate and rhythm, no murmurs Abd: soft, non-tender, non-distended Ext: no edema, R TMA, L TMA Skin: warm/well-perfused, dry ulcers on both TMA stumps Neuro: alert and oriented x3, no focal findings Psych: appropriate affect DS: Data Data Completed and Pending Completed studies during hospitalization [Text1]: Procedures Detachment at Left 2nd Toe, Complete, Open Approach (09/08/23) Detachment at Left 3rd Toe, Complete, Open Approach (09/08/23) Detachment at Left 4th Toe, Complete, Open Approach (09/08/23) Detachment at Right Foot, Partial 1st Ray, Open Approach (03/01/20) Detachment at Right Foot, Partial 2nd Ray, Open Approach (03/01/20) Detachment at Right Foot, Partial 3rd Ray, Open Approach (03/01/20) Detachment at Right Foot, Partial 4th Ray, Open Approach (03/01/20) Detachment at Right Foot, Partial 5th Ray, Open Approach (03/01/20) Drainage of Right Pleural Cavity, Percutaneous Approach (01/14/21) Excision of Left Foot Muscle, Open Approach (01/14/24) Excision of Left Foot Skin, External Approach (10/08/23) Excision of Left Foot Subcutaneous Tissue and Fascia, Open Approach (10/08/23) Excision of Right Foot Skin, External Approach (08/27/23) Excision of Stomach, Pylorus, Via Natural or Artificial Opening Endoscopic, Diagnostic (08/27/22) Fluoroscopy of Superior Vena Cava, Guidance (08/14/22) Insertion of Endotracheal Airway into Trachea, Via Natural or Artificial Opening (11/10/23) Insertion of Infusion Device into Right Atrium, Percutaneous Approach (01/14/24) Insertion of Infusion Device into Superior Vena Cava, Percutaneous Approach (11/10/23) Insertion of Infusion Device into Upper Vein, Percutaneous Approach (01/14/24) Insertion of Tunneled Vascular Access Device into Chest Subcutaneous Tissue and Fascia, Percutaneous Approach (11/10/23) Introduction of Vasopressor into Peripheral Vein, Percutaneous Approach (11/10/23) Isolation (11/10/23) Performance of Urinary Filtration, Intermittent, Less than 6 Hours Per Day (01/14/24) Removal of Infusion Device from Great Vessel, External Approach (01/14/21) Removal of Infusion Device from Heart, External Approach (01/14/24) Respiratory Ventilation, Greater than 96 Consecutive Hours (11/10/23) Transfusion of Nonautologous Red Blood Cells into Peripheral Vein, Percutaneous Approach (11/10/23) Ultrasonography of Superior Vena Cava, Guidance (01/14/24) Labs on day of discharge: Laboratory Results - last 24 hr 02/05/24 02/05/24 02/06/24 18:12 20:29 07:10 POC Glucose 118 H 163 H 98 02/06/24 10:52 POC Glucose 133 H Discharge Plan Discharge Anticipated Discharge Date/Time: 02/04/24 10:23 Patient Disposition: Home Health Service Discharge Diagnosis: Hypertensive emergency Noncompliance with hemodialysis Hyperkalemia Referrals: Physician,Unknown J [Physician] - 1 Week Discharge Medications: New sulfamethoxazole-trimethoprim 400-80 mg Tablet 1 tab PO DAILY Qty: 26 0RF tamsulosin 0.4 mg Capsule 0.4 mg PO BEDTIME Qty: 30 0RF Continued carvedilol 12.5 mg Tablet 12.5 mg PO BID 90 Days Qty: 180 0RF Protocol: Hold for SBP/HR < HOLD for SBP < : 90 HOLD for HR < : 60 hydralazine 50 mg Tablet 50 mg PO TID 90 Days Qty: 270 0RF Protocol: Hold for SBP< HOLD for SBP < : 90 lidocaine 5 % adhesive patch,medicated 1 patch topical DAILY nitroglycerin 0.4 mg tablet, sublingual 0.4 mg sublingual DIRECTED PRN (Reason: Angina) albuterol sulfate [Ventolin HFA] 90 mcg/actuation HFA aerosol inhaler 2 puff inhalation Q6H PRN (Reason: wheezing) oxycodone 10 mg tablet 10 mg PO Q6H PRN (Reason: pain) Qty: 20 0RF Rx Instructions: Partial Fill upon patient request. Discharge Orders: Discharge Order (Routine); Ordered 02/06/24 Ordered By: Scarlet Arora Diet: Diabetic diet Activity on Discharge: As tolerated Stand Alone Forms: Patient Portal Discharge page Print Language: Macedonian Activity Restrictions/Additional Instructions: Topical wound care recommendations: Left Heel - Elevate heels off of bed surface with pillows.?Cleanse with saline, pat dry. ?Apply Iodosorb / Iodoflex to wound bed cover with gauze and tape. ?Change every other day.?? Iodosorb tube left at bedside. Note the Iodosorb will be applied brown and over the course of time as the Iodine is absorbed into the wound bed the color will change to yellow / cream signifying time to replace.??Iodoflex / Iodosorb is only available from wound care nurse. At time of discharge patient should continue with Iodosorb for 1 week total and then switch to Durafiber to the wound bed and change every other day as well. Right Plantar wound? - Dry gauze dressing. Care Plan Goals: Continue all home medications as prescribed Take Bactrim 1 tablet daily for 26 more days Strongly recommend to take antihypertensive medications Health Concerns: Recommend compliance with hemodialysis on Tuesdays and Sunday Plan of Treatment: Outpatient follow-up with Nephrology and primary care physician Assessment: As above
--- NOTE | 2024-02-06 14:30 | P.PNNP_ITS ---
Subjective Subjective Date of Service: 02/06/24 Interval history: Seen and examined, events noted Physical Exam 2 Vital Signs: Vital Signs: Last Vital Signs Temp 97.4 F 02/06/24 11:12 Pulse 84 02/06/24 11:12 Resp 18 02/06/24 11:12 BP 164/93 H 02/06/24 11:12 Pulse Ox 96 02/06/24 11:12 O2 Del Method Nasal Cannula 02/06/24 11:12 O2 Flow Rate 4 02/06/24 11:12 BMI result Body Mass Index 32.3 Const: Other: Gen: Awake alert, blind HEENT: sclera anicteric, moist mucus membranes Neck: supple Lungs: clear to auscultation bilaterally Heart: regular rate and rhythm, no murmurs Abd: soft, non-tender, non-distended Ext: no edema, R TMA, L TMA Skin: warm/well-perfused, dry ulcers on both TMA stumps Neuro: alert and oriented x3, no focal findings Psych: appropriate affect General: no acute distress, alert and awake Nutritional Appearance: o bese Eyes: Sclerae: sclerae normal EOM: EOMs intact bilaterally Neck: Neck: Yes no lymphadenopathy, Yes trachea midline and Yes supple Resp: Effort & Inspection: normal respiratory effort and no respiratory distress Auscultation: clear to auscultation bilaterally Cardio: Rate: regular rate Rhythm: regular rhythm Heart sounds: no gallops, no murmurs and no rubs GI: Palpation (GI): Soft to palpation and Other GI palpation findings present ( Nontender) Auscultation: normal bowel sounds Extrem: Other: Bilateral TMA General: No clubbing and No cyanosis Objective Data Labs 02/02/24 12:17 02/02/24 12:15 Labs: Laboratory Results - last 24 hr 02/05/24 02/05/24 02/06/24 18:12 20:29 07:10 POC Glucose 118 H 163 H 98 02/06/24 10:52 POC Glucose 133 H Procedures Date of Service Date of Service: 02/06/24 Assessment & Plan Assessment and plan (1) Non-compliance with renal dialysis: Status: Inactive Plan ESRD: TTS Anemia DM HTN: copntrolled REC: cont HD TTS; meds as ntoed; d/c planniong Time Spent With Patient Time: Total time managing care of this patient today ____ minutes. Progress Note: Quality Stroke Does the patient have a stroke diagnosis?: No
[2024-02-06] MEDS: ondansetron HCL 4 MG/2 ML VIAL IVPUSH (14:51)
== END 2024-02-06 16:30 | disposition home health service (06) | DRG 291 ==
LOC: HO.ED 17:41 → HO.EDOVER 20:54 → HO.ICU 21:12 → HO.IMC 02-03 12:05
PROVIDERS: Family Medicine; Internal Medicine Critical Care Medicine; Physician Assistant Medical; Admitting Provider Registered Nurse Community Health; Emergency Provider Emergency Medicine; PCP Student in an Organized Health Care Education/Training Program; Visit Provider Hospitalist
DX: I13.2 Hypertensive heart and chronic kidney disease with heart failure and with stage 5 chronic kidney disease, or end stage renal disease (principal); N18.6 End stage renal disease; J96.11 Chronic respiratory failure with hypoxia; N17.9 Acute kidney failure, unspecified; I16.1 Hypertensive emergency; E11.22 Type 2 diabetes mellitus with diabetic chronic kidney disease; I50.22 Chronic systolic (congestive) heart failure; E11.319 Type 2 diabetes mellitus with unspecified diabetic retinopathy without macular edema; F39 Unspecified mood [affective] disorder; E87.5 Hyperkalemia; I42.9 Cardiomyopathy, unspecified; E11.42 Type 2 diabetes mellitus with diabetic polyneuropathy; E11.51 Type 2 diabetes mellitus with diabetic peripheral angiopathy without gangrene; G89.29 Other chronic pain; R33.9 Retention of urine, unspecified; H54.8 Legal blindness, as defined in USA; D63.1 Anemia in chronic kidney disease; Z59.82 Transportation insecurity; Z99.2 Dependence on renal dialysis; Z99.81 Dependence on supplemental oxygen; Z91.158 Patient's noncompliance with renal dialysis for other reason; Z79.899 Other long term (current) drug therapy
CPT/HCPCS: 36415; 80053; 82803; 82947; 83690; 83735; 84100; 85025; 90999; 93005; 99285; J1171; J1200; J2404; J2405; J2765

== ENCOUNTER → 2024-02-01 17:57 | Outpatient (BNV) | payer OTHER, SELFPAY | PROVIDERS: Admitting Provider Registered Nurse Community Health; Emergency Provider Emergency Medicine; Visit Provider Internal Medicine Cardiovascular Disease | DX: R94.31 Abnormal electrocardiogram [ECG] [EKG] (principal) | CPT/HCPCS: 93010 ==

== ENCOUNTER → 2024-02-01 20:44 | Outpatient (BNV) | payer OTHER, SELFPAY | PROVIDERS: Admitting Provider Registered Nurse Community Health; Emergency Provider Emergency Medicine; Visit Provider Family Medicine | DX: E11.22 Type 2 diabetes mellitus with diabetic chronic kidney disease (principal); N18.6 End stage renal disease; Z99.2 Dependence on renal dialysis | CPT/HCPCS: 99232; 99239; 99499 ==

== ENCOUNTER → 2024-02-01 20:44 | Outpatient (BNV) | payer OTHER, SELFPAY | PROVIDERS: Admitting Provider Registered Nurse Community Health; Emergency Provider Emergency Medicine; Visit Provider Registered Nurse Community Health | DX: N18.6 End stage renal disease (principal); Z99.2 Dependence on renal dialysis; I16.1 Hypertensive emergency; E87.5 Hyperkalemia | CPT/HCPCS: 99291 ==

== ENCOUNTER → 2024-02-01 20:44 | Outpatient (BNV) | payer OTHER, SELFPAY | PROVIDERS: Admitting Provider Registered Nurse Community Health; Emergency Provider Emergency Medicine; Visit Provider Internal Medicine Pulmonary Disease | DX: I16.0 Hypertensive urgency (principal); N18.6 End stage renal disease; Z99.2 Dependence on renal dialysis; Z91.199 Patient's noncompliance with other medical treatment and regimen due to unspecified reason; I50.9 Heart failure, unspecified; E11.51 Type 2 diabetes mellitus with diabetic peripheral angiopathy without gangrene | CPT/HCPCS: 99291 ==

== ENCOUNTER 2024-02-24 20:45 | Inpatient (IN) | payer OTHER, SELFPAY ==
[2024-02-24] VITALS (7 sets, daily range): BP systolic 154–210; BP diastolic 82–122; PULSE 120–135; RESP 18–22; TEMP 37.7; O2SAT 95–99; BMI 30.3
--- NOTE | ~2024-02-24 | IR_ITS ---
CLINICAL HISTORY: End-stage renal disease. The patient presents to interventional radiology for placement of a tunneled central venous catheter for hemodialysis. PROCEDURES: 1. Real-time ultrasound-guided access into the left external jugular vein after documentation of selected vessel patency, and permanent imaging storing in the patient record. 2. Placement of a 14.5 fr 27 cm tunneled, dual-lumen hemodialysis catheter. Clinician: Michele Garcia PA-C MEDICATIONS: -Fentanyl 100 mcg, Lidocaine 1% 10 mL SQ. -Antibiotics: None -For additional details, please see nursing flowsheet. COMPLICATIONS: None. ESTIMATED BLOOD LOSS: <5 ml SPECIMENS: None FLUOROSCOPY TIME: 1.8 minutes PROCEDURE NOTE: The procedure, risks, benefits, and alternatives were carefully explained to patient, and written informed consent was obtained. The patient was placed supine on the fluoroscopy table. A timeout was performed. Preliminary ultrasound imaging demonstrated no usable right-sided cervical veins. The left neck and chest was prepped and draped in usual sterile fashion. Local anesthesia was administered to the access site with lidocaine. Under ultrasound guidance, the left external jugular vein was accessed with a 5 Fr micropuncture set. A 0.035 in wire was advanced to the IVC to maintain access during the tunneling process. Next, subcutaneous lidocaine was administered to the chest. Using blunt dissection, a subcutaneous tunnel was created that connects from the upper chest to the venotomy site. The dialysis catheter was pulled through the tunnel. The tract in the vein was dilated and a peel-away sheath was advanced over the wire. The catheter was advanced through the sheath, which was subsequently peeled away. The catheter was tested, flushed, and sutured to the skin with its tip in the high right atrium. A permanent fluoroscopic image of the chest was saved to PACS. The catheter ports were packed with heparin per routine protocol. The left IJ Jose Antonio catheter was removed. Pressure was held until hemostasis was assured. A dressing was applied to the venotomy site. The patient was stable after the procedure and was transferred back to the medical floor. FINDINGS: 1. Patent left external jugular vein. 2. Placement of a tunneled, dual-lumen hemodialysis catheter as above. 3. Catheter flushes and aspirates very well with a 10 mL syringe. No pneumothorax. IR/IR cvc insert central tunnel IMPRESSION: Placement of a tunneled hemodialysis catheter in the left external jugular vein. PLAN: -The catheter may be used immediately. This procedure was performed by Michele Garcia PA-C, and directly supervised by Dr. Maria. Electronically signed by: Jose Manuel Maria MD 03/07/2024 03:16 PM [facility] - [place], [place] Workstation: [id number]
--- NOTE | ~2024-02-24 | XR_ITS ---
CLINICAL HISTORY: sob 1 view chest x-ray Comparison: CR/WA/SR - XR CHEST 1V - 01/30/24 13:06 EST CR/WA/SR - XR CHEST 1V - 12/11/23 16:29 EDT Findings: No consolidation or effusion. No pneumothorax. Cardiomegaly. Left IJ central venous catheter tip is at the cavoatrial junction. No acute fracture. IMPRESSION: No acute cardiopulmonary findings. This document has been electronically signed by: Marquita Pimentel MD on 02/24/2024 22:12:33
--- NOTE | ~2024-02-24 | IR_ITS ---
CLINICAL HISTORY: Patient has persistent bacteremia. The patient presents to interventional radiology for placement of a non-tunneled central venous catheter for hemodialysis. PROCEDURES: 1. Real-time ultrasound-guided access into the left internal jugular vein after documentation of selected vessel patency, and permanent imaging storing in the patient record. 2. Placement of a 12.0 fr 24 cm non-tunneled, triple-lumen hemodialysis catheter. Clinician: Michele Garcia PA-C MEDICATIONS: -Lidocaine 1% 10 mL SQ. -For additional details, please see nursing flowsheet. COMPLICATIONS: None. ESTIMATED BLOOD LOSS: <5 ml SPECIMENS: None FLUOROSCOPY TIME: 2.7 min PROCEDURE NOTE: The procedure, risks, benefits, and alternatives were carefully explained to patient, and informed consent was obtained. The patient was placed supine on the fluoroscopy table. A timeout was performed. The left neck and chest was prepped and draped in usual sterile fashion. Local anesthesia was administered to the access site with lidocaine. Under ultrasound guidance, the left internal jugular vein was accessed with a 4 Fr micropuncture set. A 0.035 in wire was advanced into the IVC. The tract in the vein was serially dilated. Over the wire, a 12.0 fr 24 non-tunneled, triple-lumen hemodialysis catheter was advanced, with the tip located at the cavoatrial junction. The wire was removed. The catheter was tested, flushed, and sutured to the skin. A permanent fluoroscopic image of the chest was saved to PACS. The patient was stable after the procedure and was transferred to the medical floor. There were no immediate complications. FINDINGS: 1. Patent left internal jugular vein. 2. Placement of a non-tunneled, triple-lumen hemodialysis catheter as above. 3. Catheter flushes and aspirates very well with a 10 mL syringe. No pneumothorax. IR/IR cvc insert non tunnel IMPRESSION: Placement of a non-tunneled triple-lumen hemodialysis catheter in the left internal jugular vein. PLAN: -The catheter may be used immediately. This procedure was performed by Michele Garcia PA-C, and directly supervised by Dr. Maria. Electronically signed by: Jose Manuel Maria MD 03/07/2024 03:16 PM [facility] Workstation: [id number]
--- NOTE | 2024-02-24 21:21 | ED_ITS ---
HPI - SOB/Dyspnea General Chief Complaint: General Medical Stated Complaint: asthma exacerbation, dialysis pt Time Seen by Provider: 02/24/24 21:05 Source: patient Mode of arrival: EMS Limitations: no limitations History of Present Illness ED Provider: HPI Narrative: 33-year-old female with pertinent history of ESRD on hemodialysis, 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, peripheral arterial disease status post bilateral TMA, poorly controlled hypertension due to noncompliance with medications, chronic hypoxic respiratory failure on 4 L baseline supplemental oxygen, congestive heart failure with reduced ejection fraction, mood disorder, chronic pain with opioid seeking behavior, cardiomyopathy had dialysis on 02/20 comes here for increased shortness a breath started just prior to arrival Related Data Home Medications ?Medication ?Instructions ?Recorded ?Confirmed albuterol sulfate 90 mcg/actuation 2 puff inhalation Q6H PRN wheezing 01/15/24 02/01/24 aerosol inhaler (Ventolin HFA) lidocaine 5 % topical patch 1 patch topical DAILY 01/15/24 02/01/24 nitroglycerin 0.4 mg sublingual 0.4 mg sublingual DIRECTED PRN 01/15/24 02/01/24 tablet Angina Previous Rx's ?Medication ?Instructions ?Recorded carvedilol 12.5 mg tablet 12.5 mg PO BID 90 days #180 tabs 12/16/23 hydralazine 50 mg tablet 50 mg PO TID 90 days #270 tabs 12/16/23 oxycodone 10 mg tablet 10 mg PO Q6H PRN pain #20 tabs 01/26/24 sulfamethoxazole 400 1 tab PO DAILY #26 tabs 02/04/24 mg-trimethoprim 80 mg tablet tamsulosin 0.4 mg capsule 0.4 mg PO BEDTIME #30 caps 02/06/24 Allergies Allergy/AdvReac Type Severity Reaction Status Date / Time morphine [MORPHINE] Allergy Intermediate Itching Verified 02/24/24 21:34 azithromycin [From Zithromax] Allergy Hives Verified 02/24/24 21:34 gabapentin Allergy Facial Verified 02/24/24 21:34 Swelling tramadol Allergy Facial Verified 02/24/24 21:34 Swelling vancomycin Allergy Anaphylaxis Verified 02/24/24 21:34 Review of Systems 2 Review of Systems: Yes all other systems are reviewed and are negative PMFSH Past Medical History Medical History Non-compliance with renal dialysis Decompensated heart failure Congestive heart failure Renal failure Hypertension, uncontrolled Medical non-compliance Pericarditis Unspecified hypertension, condition or complication Metabolic acidosis Gastroparesis End stage chronic kidney disease Chronic kidney disease Anemia Chronic foot ulcer Plantar ulcer of left foot Major depressive disorder, single episode, severe ESRD (end stage renal disease) Non-compliance with renal dialysis Hypertensive urgency MDD (major depressive disorder), recurrent episode MDD (major depressive disorder) Renal failure Foot ulcer CKD (chronic kidney disease) Hypertension Diabetic foot Hyperkalemia Vomiting Renal failure Hypertension Migraine Chronic pain ESRD on dialysis Non-compliance with renal dialysis Hypertension End-stage renal disease (ESRD) Diabetic foot ulcer associated with type 2 diabetes mellitus Hypertensive emergency Diabetes ESRD needing dialysis Cardiomyopathy HFrEF (heart failure with reduced ejection fraction) delivery delivered Anemia in chronic kidney disease (CKD) CKD (chronic kidney disease) Headache, migraine Abnormal finding on echocardiogram Elevated troponin Chest pain Acute worsening of stage 3 chronic kidney disease Generalized edema Sepsis Cellulitis Pleural effusion CHF (congestive heart failure) (~06/07/22) Tachycardia Atypical chest pain Bone infection PAD (peripheral artery disease) Severe anemia Cellulitis and abscess of foot DM foot ulcer Osteomyelitis Asthma Depression with anxiety Diabetic retinopathy Type 2 diabetes mellitus with hyperglycemia, with long-term current use of insulin Blind right eye Diabetes Back pain Surgical History Tubal ligation status Previous section Hx laparoscopic cholecystectomy Hx of surgical procedure (~09/11/23) 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 Family History Family History Mother Coronary artery disease Myocardial infarction Stroke Diabetes mellitus Father Myocardial infarction Social History Social History Household Members: Family Household Members Other:: Sister Housing: Apartment Are you a primary home health care social worker to a significant other at home: No Do you presently have visiting nurse or other home services: No Unable to assess alcohol history related to: Unknown Alcohol intake: never Comment: Remain w/ pt on commode. Patient Tobacco Use Status: Never used Tobacco e-Cigarette/Vaping Use: Never Used Use of substances other than those prescribed or required for medical reasons: No Advance Directives: Yes Advance Directives on File: Yes Advance Directives Date on File: 08/28/23 Do you have a plan to hurt others: No Plan service: No Current occupational status: unemployed and disabled Gender identity: Female Physical Exam 2 Vital Signs: Vital Signs: Last Vital Signs Temp 98.3 F 02/25/24 00:00 Pulse 95 02/25/24 00:00 Resp 15 02/25/24 00:00 BP 163/81 H 02/25/24 00:00 Pulse Ox 100 02/25/24 00:00 O2 Del Method Non-Rebreather Ma sk 02/25/24 00:00 O2 Flow Rate 10 02/25/24 00:00 Oxygen Flow Rate 6 02/24/24 21:15 BMI result Body Mass Index 30.3 Appearance: Alert. Oriented X3. No acute distress. Eyes: Legally blind ENT: Pharynx normal. Oral Mucosa moist Neck: Normal inspection. Neck supple. CVS: Normal heart rate and rhythm. Pulses normal. Respiratory: No respiratory distress. Equal air entry bilateral, no wheezing/rales/rhonchi Abdomen: Soft and nontender. Bowel sounds are present, no mass palpable, no CVA tenderness Skin: Skin warm and dry. Normal skin color. Normal skin turgor. Extremities: No lower extremity edema. No calf tenderness metatarsal amputation Neuro: Oriented X 3. No motor deficit. No sensory deficit.No cerebellar signs , cranial nerves II-XII intact Medications Administered Generic Name Dose Route Start Last Admin Trade Name Freq PRN Reason Stop Dose Admin Heparin Sodium (Porcine) 5,000 unit 02/25/24 01:15 02/25/24 01:48 Heparin Sodium,Porcine 5,000 Unit/Ml Vial SUBCUT Not Given Q12H VASILE Discontinued Medications Generic Name Dose Route Start Last Admin Trade Name Freq PRN Reason Stop Dose Admin Albuterol Sulfate 2.5 mg/ 0 mg 02/24/24 21:32 02/24/24 21:40 Albuterol/Ipratropium 3 ml INHALE 02/24/24 21:33 1 dose ONCE ONE Administration Dextrose 25 gm 02/24/24 22:30 02/24/24 22:24 Dextrose 50 % 25 Gm/50 Ml Syringe IVPUSH 02/24/24 22:31 25 gm ONCE ONE Administration Furosemide 100 mg 02/24/24 21:32 02/24/24 21:43 Furosemide 100 Mg/10 Ml Vial IVPUSH 02/24/24 21:33 100 mg ONCE ONE Administration Protocol Hydromorphone HCl 1 mg 02/24/24 22:34 02/24/24 22:40 Hydromorphone Hcl 1 Mg/Ml Syringe IVPUSH 02/24/24 22:35 1 mg ONCE ONE Administration Protocol Calcium Gluconate 2 gm in 100 mls @ 50 mls/hr 02/24/24 22:15 02/25/24 01:50 Calcium Gluconate IV 02/25/24 00:14 Infused ONCE ONE Infusion Labetalol HCl 20 mg 02/24/24 23:14 02/24/24 23:30 Labetalol Hcl 100 Mg/20 Ml Vial IVPUSH 02/24/24 23:15 20 mg ONCE ONE Administration Sodium Bicarbonate 50 meq 02/24/24 22:15 02/24/24 22:24 Sodium Bicarbonate 8.4% 50 Meq/50 Ml Syringe IVPUSH 02/24/24 22:16 50 meq ONCE ONE Administration Sodium Zirconium Cyclosilicate 10 gm 02/24/24 22:16 02/24/24 22:24 Sodium Zirconium Cyclosilicate 10 Gm Powd.Pack PO 02/24/24 22:17 10 gm ONCE ONE Administration Medical Decision Making Medical Decision Making [facility] Narrative: Patient has acute shortness of breath with end-stage renal disease on dialysis with elevated creatinine potassium and hypoglycemia admitted for fluid overload for dialysis in a.m. blood pressure improved after 2 doses of labetalol to 163/81 Differential Diagnosis Differential Diagnoses: The differential diagnosis associated with the presentation includes Admission/Observation Consideration of admission/observation: Escalation of care including admission/observation considered Consult Healthcare Provider Management of the patient was discussed with: Hospitalist Lab Data [facility] Lab Attestation statement: I reviewed the patient's lab results. 02/24/24 21:33 02/25/24 00:14 Labs: Lab Results 02/24/24 02/24/24 02/24/24 Range/Units 21:23 21:33 21:33 WBC 6.8 (4.8-10.8) X10*3/uL RBC 3.20 L D (4.20-5.50) X10*6/uL Hgb 9.5 L D (12.0-16.0) g/dl Hct 30.1 L D (37.0-47.0) % MCV 94.1 (80.0-98.0) fL MCH 29.7 (27.0-33.0) pg MCHC 31.6 (31.0-35.0) g/dl RDW 16.3 H (11.0-16.0) % Plt Count 180 (160-400) X10*3/uL MPV 12.6 H (9.4-12.3) fL Immature Gran % (Auto) 0.6 H (0.0-0.4) % Neut % (Auto) 76.1 H (45-73) % Lymph % (Auto) 14.2 L (20-40) % Callahan % (Auto) 7.0 (2-11) % Eos % (Auto) 1.5 (0-4) % Baso % (Auto) 0.6 (0-2) % Lymph # (Auto) 1.0 L (1.2-4.9) X10*3/uL Callahan # (Auto) 0.5 (0.1-1.2) X10*3/uL Eos # (Auto) 0.1 (0.0-0.4) X10*3/uL Baso # (Auto) 0.0 (0.0-0.2) X10*3/uL Abs Immat Gran (auto) 0.04 H (0.00-0.03) X10*3/uL Absolute Neuts (auto) 5.2 (2.0-8.3) x10*3/uL Absolute Nucleated RBC 0.000 (0.0-0.012) X10*3/uL Nucleated RBC % (auto) 0.0 (0.0-0.2) /100WBC PT 15.3 H (10.9-12.4) SEC INR 1.3 H (0.9-1.1) VBG pH (7.32-7.43) VBG pCO2 mmHg VBG pO2 mmHg VBG HCO3 (22-26) mmol/L VBG O2 Saturation VBG Base Excess mmol/L Sodium 136 (135-145) mmol/L Potassium 6.7 H* D (3.3-5.1) mmol/L Chloride 101 (96-108) mmol/L Carbon Dioxide 11 L (22-29) mmol/L Anion Gap 31 H (12-20) BUN 85 H (9-16) mg/dL Creatinine 8.77 H* (0.5-1.4) mg/dL Estim Creat Clear Calc 9.4 Estimated GFR 5 POC Glucose 36 L* (60-115) mg/dL Random Glucose 40 L* (60-115) mg/dL Lactic Acid 6.6 H* (0.5-2.0) mmol/L Lactic Acid F/U @ 2Hr (0.5-2.0) mmol/L Calcium 7.4 L D (8.4-10.2) mg/dL Magnesium 2.3 (1.6-2.6) mg/dL Total Bilirubin 1.7 H (0.0-1.0) mg/dL AST 51 H (5-31) U/L ALT 13 (0-31) U/L Alkaline Phosphatase 189 H (39-117) U/L Troponin I High Sens 58.4 H* D (<3.5-17.0) ng/L B-Natriuretic Peptide 7711 H (<100) pg/mL Total Protein 8.4 H (6.5-8.0) g/dL Albumin 3.7 (3.5-5.0) g/dL Hold Red Top See Note Hold Green Top Cancelled See Note COVID-19 (CARO) (Negative) COVID-19 Clin Com 02/24/24 02/24/24 02/24/24 Range/Units 21:57 22:05 22:14 WBC (4.8-10.8) X10*3/uL RBC (4.20-5.50) X10*6/uL Hgb (12.0-16.0) g/dl Hct (37.0-47.0) % MCV (80.0-98.0) fL MCH (27.0-33.0) pg MCHC (31.0-35.0) g/dl RDW (11.0-16.0) % Plt Count (160-400) X10*3/uL MPV (9.4-12.3) fL Immature Gran % (Auto) (0.0-0.4) % Neut % (Auto) (45-73) % Lymph % (Auto) (20-40) % Callahan % (Auto) (2-11) % Eos % (Auto) (0-4) % Baso % (Auto) (0-2) % Lymph # (Auto) (1.2-4.9) X10*3/uL Callahan # (Auto) (0.1-1.2) X10*3/uL Eos # (Auto) (0.0-0.4) X10*3/uL Baso # (Auto) (0.0-0.2) X10*3/uL Abs Immat Gran (auto) (0.00-0.03) X10*3/uL Absolute Neuts (auto) (2.0-8.3) x10*3/uL Absolute Nucleated RBC (0.0-0.012) X10*3/uL Nucleated RBC % (auto) (0.0-0.2) /100WBC PT (10.9-12.4) SEC INR (0.9-1.1) VBG pH (7.32-7.43) VBG pCO2 mmHg VBG pO2 mmHg VBG HCO3 (22-26) mmol/L VBG O2 Saturation VBG Base Excess mmol/L Sodium (135-145) mmol/L Potassium (3.3-5.1) mmol/L Chloride (96-108) mmol/L Carbon Dioxide (22-29) mmol/L Anion Gap (12-20) BUN (9-16) mg/dL Creatinine (0.5-1.4) mg/dL Estim Creat Clear Calc Estimated GFR POC Glucose 37 L* 162 H (60-115) mg/dL Random Glucose (60-115) mg/dL Lactic Acid (0.5-2.0) mmol/L Lactic Acid F/U @ 2Hr (0.5-2.0) mmol/L Calcium (8.4-10.2) mg/dL Magnesium (1.6-2.6) mg/dL Total Bilirubin (0.0-1.0) mg/dL AST (5-31) U/L ALT (0-31) U/L Alkaline Phosphatase (39-117) U/L Troponin I High Sens (<3.5-17.0) ng/L B-Natriuretic Peptide (<100) pg/mL Total Protein (6.5-8.0) g/dL Albumin (3.5-5.0) g/dL Hold Red Top Hold Green Top COVID-19 (CARO) Negative (Negative) COVID-19 Clin Com See Note 02/24/24 02/25/24 02/25/24 Range/Units 23:11 00:14 00:20 WBC (4.8-10.8) X10*3/uL RBC (4.20-5.50) X10*6/uL Hgb (12.0-16.0) g/dl Hct (37.0-47.0) % MCV (80.0-98.0) fL MCH (27.0-33.0) pg MCHC (31.0-35.0) g/dl RDW (11.0-16.0) % Plt Count (160-400) X10*3/uL MPV (9.4-12.3) fL Immature Gran % (Auto) (0.0-0.4) % Neut % (Auto) (45-73) % Lymph % (Auto) (20-40) % Callahan % (Auto) (2-11) % Eos % (Auto) (0-4) % Baso % (Auto) (0-2) % Lymph # (Auto) (1.2-4.9) X10*3/uL Callahan # (Auto) (0.1-1.2) X10*3/uL Eos # (Auto) (0.0-0.4) X10*3/uL Baso # (Auto) (0.0-0.2) X10*3/uL Abs Immat Gran (auto) (0.00-0.03) X10*3/uL Absolute Neuts (auto) (2.0-8.3) x10*3/uL Absolute Nucleated RBC (0.0-0.012) X10*3/uL Nucleated RBC % (auto) (0.0-0.2) /100WBC PT (10.9-12.4) SEC INR (0.9-1.1) VBG pH 7.36 (7.32-7.43) VBG pCO2 29 mmHg VBG pO2 172 mmHg VBG HCO3 17 L (22-26) mmol/L VBG O2 Saturation Not Reportable VBG Base Excess -7.2 mmol/L Sodium 134 L (135-145) mmol/L Potassium 5.4 H (3.3-5.1) mmol/L Chloride 101 (96-108) mmol/L Carbon Dioxide 14 L (22-29) mmol/L Anion Gap 24 H (12-20) BUN 86 H (9-16) mg/dL Creatinine 8.50 H* (0.5-1.4) mg/dL Estim Creat Clear Calc 9.8 Estimated GFR 5 POC Glucose 99 (60-115) mg/dL Random Glucose 93 (60-115) mg/dL Lactic Acid (0.5-2.0) mmol/L Lactic Acid F/U @ 2Hr 1.9 (0.5-2.0) mmol/L Calcium 7.2 L (8.4-10.2) mg/dL Magnesium (1.6-2.6) mg/dL Total Bilirubin (0.0-1.0) mg/dL AST (5-31) U/L ALT (0-31) U/L Alkaline Phosphatase (39-117) U/L Troponin I High Sens (<3.5-17.0) ng/L B-Natriuretic Peptide (<100) pg/mL Total Protein (6.5-8.0) g/dL Albumin (3.5-5.0) g/dL Hold Red Top Hold Green Top COVID-19 (CARO) (Negative) COVID-19 Clin Com 02/25/24 Range/Units 00:22 WBC (4.8-10.8) X10*3/uL RBC (4.20-5.50) X10*6/uL Hgb (12.0-16.0) g/dl Hct (37.0-47.0) % MCV (80.0-98.0) fL MCH (27.0-33.0) pg MCHC (31.0-35.0) g/dl RDW (11.0-16.0) % Plt Count (160-400) X10*3/uL MPV (9.4-12.3) fL Immature Gran % (Auto) (0.0-0.4) % Neut % (Auto) (45-73) % Lymph % (Auto) (20-40) % Callahan % (Auto) (2-11) % Eos % (Auto) (0-4) % Baso % (Auto) (0-2) % Lymph # (Auto) (1.2-4.9) X10*3/uL Callahan # (Auto) (0.1-1.2) X10*3/uL Eos # (Auto) (0.0-0.4) X10*3/uL Baso # (Auto) (0.0-0.2) X10*3/uL Abs Immat Gran (auto) (0.00-0.03) X10*3/uL Absolute Neuts (auto) (2.0-8.3) x10*3/uL Absolute Nucleated RBC (0.0-0.012) X10*3/uL Nucleated RBC % (auto) (0.0-0.2) /100WBC PT (10.9-12.4) SEC INR (0.9-1.1) VBG pH (7.32-7.43) VBG pCO2 mmHg VBG pO2 mmHg VBG HCO3 (22-26) mmol/L VBG O2 Saturation VBG Base Excess mmol/L Sodium (135-145) mmol/L Potassium (3.3-5.1) mmol/L Chloride (96-108) mmol/L Carbon Dioxide (22-29) mmol/L Anion Gap (12-20) BUN (9-16) mg/dL Creatinine (0.5-1.4) mg/dL Estim Creat Clear Calc Estimated GFR POC Glucose 88 (60-115) mg/dL Random Glucose (60-115) mg/dL Lactic Acid (0.5-2.0) mmol/L Lactic Acid F/U @ 2Hr (0.5-2.0) mmol/L Calcium (8.4-10.2) mg/dL Magnesium (1.6-2.6) mg/dL Total Bilirubin (0.0-1.0) mg/dL AST (5-31) U/L ALT (0-31) U/L Alkaline Phosphatase (39-117) U/L Troponin I High Sens (<3.5-17.0) ng/L B-Natriuretic Peptide (<100) pg/mL Total Protein (6.5-8.0) g/dL Albumin (3.5-5.0) g/dL Hold Red Top Hold Green Top COVID-19 (CARO) (Negative) COVID-19 Clin Com Critical Care Time Critical Care Time Critical Care Time: Yes Total Critical Care Time: 60 Attestation: The patient was critically ill with a high probability of imminent or life threatening deterioration. I spent greater than 65???minutes of discontinuous time evaluating the patient,delivering critical care at the bedside, discussing and evaluating pertinent data with consultants. Critical care time does not include time spent performing separately billable procedures or teaching. Total time spent performing critical care was 60 ???minutes. Discharge Plan Discharge Clinical Impression: Hypertensive emergency, ESRD (end stage renal disease) on dialysis, CHF (congestive heart failure), Acute respiratory failure with hypoxia, Metabolic acidosis Patient Disposition: Admitted As Inpatient
--- NOTE | 2024-02-24 21:31 | ECG_ITS ---
Test Reason : asthma exacerbtion/ hypolycemia Blood Pressure : / mmHG Vent. Rate : 122 BPM Atrial Rate : 122 BPM P-R Int : 112 ms QRS Dur : 148 ms QT Int : 372 ms P-R-T Axes : 050 -26 042 degrees QTc Int : 530 ms Sinus tachycardia Right bundle branch block T wave abnormality, consider lateral ischemia Abnormal ECG When compared with ECG of 01-FEB-2024 18:42, No significant change was found Referred By: Mazin Rubalcava Electronically Signed By:HATTIE BAÑUELOS MD
[2024-02-24] MEDS: Albuterol Sulfate 2.5 MG, Albuterol/Iprat 2.5/0.5MG 3 ML 3 ML INHALE (21:40)
[2024-02-24 21:43] LABS: MANUAL DIFF FLAG NO
[2024-02-24] MEDS: Furosemide 100 MG/10 ML VIAL IVPUSH (21:43)
[2024-02-24 21:46] LABS: Basophils Percent Auto 0.6 % (0-2); Eosinophils Absolute Auto 0.1 X10*3/uL (0.0-0.4); Eosinophils Percent Auto 1.5 % (0-4); Hematocrit 30.1 % (37.0-47.0); Hemoglobin 9.5 g/dl (12.0-16.0); Imm Gran Abs Auto 0.04 X10*3/uL (0.00-0.03); Imm Gran Pct Auto 0.6 % (0.0-0.4); Lymphocytes Percent Auto 14.2 % (20-40); Mean Corpuscular HGB Conc 31.6 g/dl (31.0-35.0); Mean Corpuscular Hemoglobin 29.7 pg (27.0-33.0); Mean Corpuscular Volume 94.1 fL (80.0-98.0); Mean Platelet Volume 12.6 fL (9.4-12.3); Monocytes Absolute Auto 0.5 X10*3/uL (0.1-1.2); Neutrophils Absolute Auto 5.2 x10*3/uL (2.0-8.3); Neutrophils Percent Auto 76.1 % (45-73); Platelet Count 180 X10*3/uL (160-400); Red Cell Distribution Width 16.3 % (11.0-16.0); White Blood Count 6.8 X10*3/uL (4.8-10.8)
[2024-02-24 21:53] LABS: INTERNATIONAL NORM RATIO 1.3 (0.9-1.1); Prothrombin Time 15.3 SEC (10.9-12.4)
[2024-02-24 22:17] LABS: Alanine Aminotransferase 13 U/L (0-31); Albumin Level 3.7 g/dL (3.5-5.0); Alkaline Phosphatase 189 U/L (39-117); Anion Gap 31 (12-20); Aspartate Amino Transferase 51 U/L (5-31); Bilirubin Total 1.7 mg/dL (0.0-1.0); Blood Urea Nitrogen 85 mg/dL (9-16); Calcium 7.4 mg/dL (8.4-10.2); Carbon Dioxide 11 mmol/L (22-29); Chloride 101 mmol/L (96-108); Creatinine Clr Calc Pharmacy 9.4; Estimated Glomerular Filt Rate 5; Glucose Random 40 mg/dL (60-115); Magnesium 2.3 mg/dL (1.6-2.6); Potassium 6.7 mmol/L (3.3-5.1); Sodium 136 mmol/L (135-145); Total Protein 8.4 g/dL (6.5-8.0)
[2024-02-24 22:18] LABS: Lactic Acid 6.6 mmol/L (0.5-2.0)
[2024-02-24 22:19] LABS: Glucose, Whole Blood 36 mg/dL (60-115)
[2024-02-24 22:19] LABS: Glucose, Whole Blood 162 mg/dL (60-115)
[2024-02-24 22:19] LABS: Glucose, Whole Blood 37 mg/dL (60-115)
[2024-02-24 22:21] LABS: Troponin-I High Sensitivity 58.4 ng/L (<3.5-17.0)
[2024-02-24] MEDS: Dextrose 50 % 25 GM/50 ML SYRINGE IVPUSH (22:24)
[2024-02-24] MEDS: Calcium Gluconate/NaCl,Iso-Osm 2 GM/100 ML PLAST..BAG IV (22:24)
[2024-02-24] MEDS: Sodium Bicarbonate 8.4% 50 MEQ/50 ML SYRINGE IVPUSH (22:24)
[2024-02-24] MEDS: Sodium Zirconium Cyclosilicate 10 GM POWD.PACK PO (22:24)
[2024-02-24 22:26] LABS: COVID-19 Test Negative (Negative); IDNOW Serial# 55D5AD1C
[2024-02-24] MEDS: HYDROmorphone HCl 1 MG/ML SYRINGE IVPUSH (22:40)
[2024-02-24 23:03] LABS: B Type Natriuretic Peptide 7711 pg/mL (<100)
[2024-02-24 23:14] LABS: Glucose, Whole Blood 99 mg/dL (60-115)
[2024-02-24] MEDS: Labetalol HCL 100 MG/20 ML VIAL 20 MG IVPUSH (23:30)
[2024-02-24 23:40] LABS: Reflex Lactate? Lactic Acid Added
[2024-02-25] VITALS (9 sets, daily range): BP systolic 145–197; BP diastolic 70–107; PULSE 86–103; RESP 15–20; TEMP 36.7–38.1; O2SAT 92–100; BMI 29.9
[2024-02-25 00:19] LABS: Venous Blood Gas Refer to POC result
[2024-02-25 00:25] LABS: VBG Base Excess -7.2 mmol/L; VBG HCO3 17 mmol/L (22-26); VBG pCO2 29 mmHg; VBG pH 7.36 (7.32-7.43); VBG pO2 172 mmHg
[2024-02-25 00:27] LABS: Glucose, Whole Blood 88 mg/dL (60-115)
[2024-02-25 00:35] LABS: Anion Gap 24 (12-20); Blood Urea Nitrogen 86 mg/dL (9-16); Calcium 7.2 mg/dL (8.4-10.2); Carbon Dioxide 14 mmol/L (22-29); Chloride 101 mmol/L (96-108); Creatinine Clr Calc Pharmacy 9.8; Estimated Glomerular Filt Rate 5; Glucose Random 93 mg/dL (60-115); Potassium 5.4 mmol/L (3.3-5.1); Sodium 134 mmol/L (135-145)
[2024-02-25 00:40] LABS: ~Lactic Acid-LAB USE ONLY 1.9 mmol/L (0.5-2.0)
--- NOTE | 2024-02-25 00:54 | P.HPHOSP_ITS ---
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 Patient states her last dialysis was on 02/20 end- stage she has been compliant with her home prescription medications. Patient is complaining of increasing dyspnea which has been progressive and worse when she lays flat. Denies fever, chills, palpitations, abdominal pain. In the emergency department, patient was found to have hyperkalemia and given calcium gluconate, IV furosemide, IV bicarb, DuoNebs and Lokelma. Patient requiring 10 L supplemental oxygen in the ER Review of Systems 2 Constitutional: Constitutional: Reports fatigue and Reports malaise Cardiovascular: Cardiovascular: Reports dyspnea on exertion Respiratory: Respiratory: Reports dyspnea on exertion Gastrointestinal: Gastrointestinal: Reports no additional gastrointestinal complaints Genitourinary: Genitourinary: Reports no additional female genitourinary complaints Endocrine: Endocrine: Reports fatigue [facility] Medical History (Updated 02/25/24 @ 00:57 by Alejandra Sewell MD) Hypertensive emergency Non-compliance with renal dialysis Decompensated heart failure Congestive heart failure Renal failure Hypertension, uncontrolled Medical non-compliance Pericarditis Unspecified hypertension, condition or complication Metabolic acidosis Gastroparesis End stage chronic kidney disease Chronic kidney disease Anemia Chronic foot ulcer Plantar ulcer of left foot Major depressive disorder, single episode, severe ESRD (end stage renal disease) Non-compliance with renal dialysis Hypertensive urgency MDD (major depressive disorder), recurrent episode MDD (major depressive disorder) Renal failure Foot ulcer CKD (chronic kidney disease) Hypertension Diabetic foot Hyperkalemia Vomiting Renal failure Hypertension Migraine Chronic pain ESRD on dialysis Non-compliance with renal dialysis Hypertension End-stage renal disease (ESRD) Diabetic foot ulcer associated with type 2 diabetes mellitus Diabetes ESRD needing dialysis Cardiomyopathy HFrEF (heart failure with reduced ejection fraction) delivery delivered Anemia in chronic kidney disease (CKD) CKD (chronic kidney disease) Headache, migraine Abnormal finding on echocardiogram Elevated troponin Chest pain Acute worsening of stage 3 chronic kidney disease Generalized edema Sepsis Cellulitis Pleural effusion CHF (congestive heart failure) (~06/07/22) Tachycardia Atypical chest pain Bone infection PAD (peripheral artery disease) Severe anemia Cellulitis and abscess of foot DM foot ulcer Osteomyelitis Asthma Depression with anxiety Diabetic retinopathy Type 2 diabetes mellitus with hyperglycemia, with long-term current use of insulin Blind right eye Diabetes Back pain Family History Mother Coronary artery disease Myocardial infarction Stroke Diabetes mellitus Father Myocardial infarction Surgical History Tubal ligation status Previous section Hx laparoscopic cholecystectomy Hx of surgical procedure (~09/11/23) 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 Social History Household Members: Family Household Members Other:: Sister Housing: Apartment Are you a primary child care aide to a significant other at home: No Do you presently have visiting nurse or other home services: No Unable to assess alcohol history related to: Unknown Alcohol intake: never Comment: Remain w/ pt on commode. Patient Tobacco Use Status: Never used Tobacco e-Cigarette/Vaping Use: Never Used Use of substances other than those prescribed or required for medical reasons: No Advance Directives: Yes Advance Directives on File: Yes Advance Directives Date on File: 08/28/23 Do you have a plan to hurt others: No Plan service: No Current occupational status: unemployed and disabled Gender identity: Female Meds Allergies Allergy/AdvReac Type Severity Reaction Status Date / Time morphine [MORPHINE] Allergy Intermediate Itching Verified 02/24/24 21:34 azithromycin [From Zithromax] Allergy Hives Verified 02/24/24 21:34 gabapentin Allergy Facial Verified 02/24/24 21:34 Swelling tramadol Allergy Facial Verified 02/24/24 21:34 Swelling vancomycin Allergy Anaphylaxis Verified 02/24/24 21:34 Home Medications ?Medication ?Instructions ?Recorded ?Confirmed ?Last Taken ?Type albuterol sulfate 90 mcg/actuation 2 puff inhalation Q6H PRN wheezing 01/15/24 02/01/24 Unknown History aerosol inhaler (Ventolin HFA) lidocaine 5 % topical patch 1 patch topical DAILY 01/15/24 02/01/24 02/01/24 History nitroglycerin 0.4 mg sublingual 0.4 mg sublingual DIRECTED PRN 01/15/24 02/01/24 Unknown History tablet Angina Physical Exam 2 Vital Signs and Narrative: Vital Signs: Last Vital Signs Temp 98.3 F 02/25/24 00:00 Pulse 95 02/25/24 00:00 Resp 15 02/25/24 00:00 BP 163/81 H 02/25/24 00:00 Pulse Ox 100 02/25/24 00:00 O2 Del Method Non-Rebreather Ma sk 02/25/24 00:00 O2 Flow Rate 10 02/25/24 00:00 Oxygen Flow Rate 6 02/24/24 21:15 BMI result Body Mass Index 30.3 Middle-aged female lying in bed in distress on supplemental oxygen Neck supple, no JVD Regular rate and rhythm, S1-S2 heard Bilateral crackles present Abdomen soft nontender, no guarding, no rigidity Patient is awake, alert and oriented to place and time ; no focal motor deficit Psych: Normal mood Bilateral TMA Results Labs 02/24/24 21:33 02/25/24 00:14 Labs: Laboratory Results - last 24 hr 02/24/24 02/24/24 02/24/24 21:23 21:33 21:33 MCV 94.1 MCH 29.7 MCHC 31.6 RDW 16.3 H Plt Count 180 MPV 12.6 H Immature Gran % (Auto) 0.6 H Neut % (Auto) 76.1 H Lymph % (Auto) 14.2 L [place] % (Auto) 7.0 Eos % (Auto) 1.5 Baso % (Auto) 0.6 Lymph # (Auto) 1.0 L [place] # (Auto) 0.5 Eos # (Auto) 0.1 Baso # (Auto) 0.0 Abs Immat Gran (auto) 0.04 H Absolute Neuts (auto) 5.2 Absolute Nucleated RBC 0.000 Nucleated RBC % (auto) 0.0 PT 15.3 H INR 1.3 H VBG pH VBG pCO2 VBG pO2 VBG HCO3 VBG O2 Saturation VBG Base Excess Anion Gap 31 H Estim Creat Clear Calc 9.4 Estimated GFR 5 POC Glucose 36 L* Random Glucose 40 L* Lactic Acid 6.6 H* Lactic Acid F/U @ 2Hr Calcium 7.4 L D Magnesium 2.3 Total Bilirubin 1.7 H AST 51 H ALT 13 Alkaline Phosphatase 189 H Troponin I High Sens 58.4 H* D B-Natriuretic Peptide 7711 H Total Protein 8.4 H Albumin 3.7 Hold Red Top See Note Hold Green Top Cancelled See Note COVID-19 (CARO) COVID-19 [employer] 02/24/24 02/24/24 02/24/24 21:57 22:05 22:14 MCV MCH MCHC RDW Plt Count MPV Immature Gran % (Auto) Neut % (Auto) Lymph % (Auto) [place] % (Auto) Eos % (Auto) Baso % (Auto) Lymph # (Auto) [place] # (Auto) Eos # (Auto) Baso # (Auto) Abs Immat Gran (auto) Absolute Neuts (auto) Absolute Nucleated RBC Nucleated RBC % (auto) PT INR VBG pH VBG pCO2 VBG pO2 VBG HCO3 VBG O2 Saturation VBG Base Excess Anion Gap Estim Creat Clear Calc Estimated GFR POC Glucose 37 L* 162 H Random Glucose Lactic Acid Lactic Acid F/U @ 2Hr Calcium Magnesium Total Bilirubin AST ALT Alkaline Phosphatase Troponin I High Sens B-Natriuretic Peptide Total Protein Albumin Hold Red Top Hold Green Top COVID-19 (CARO) Negative [employer] See Note 02/24/24 02/25/24 02/25/24 23:11 00:14 00:20 MCV MCH MCHC RDW Plt Count MPV Immature Gran % (Auto) Neut % (Auto) Lymph % (Auto) [place] % (Auto) Eos % (Auto) Baso % (Auto) Lymph # (Auto) [place] # (Auto) Eos # (Auto) Baso # (Auto) Abs Immat Gran (auto) Absolute Neuts (auto) Absolute Nucleated RBC Nucleated RBC % (auto) PT INR VBG pH 7.36 VBG pCO2 29 VBG pO2 172 VBG HCO3 17 L VBG O2 Saturation Not Reportable VBG Base Excess -7.2 Anion Gap 24 H Estim Creat Clear Calc 9.8 Estimated GFR 5 POC Glucose 99 Random Glucose 93 Lactic Acid Lactic Acid F/U @ 2Hr 1.9 Calcium 7.2 L Magnesium Total Bilirubin AST ALT Alkaline Phosphatase Troponin I High Sens B-Natriuretic Peptide Total Protein Albumin Hold Red Top Hold Green Top COVID-19 (CARO) COVID-19 [employer] 02/25/24 00:22 MCV MCH MCHC RDW Plt Count MPV Immature Gran % (Auto) Neut % (Auto) Lymph % (Auto) [place] % (Auto) Eos % (Auto) Baso % (Auto) Lymph # (Auto) [place] # (Auto) Eos # (Auto) Baso # (Auto) Abs Immat Gran (auto) Absolute Neuts (auto) Absolute Nucleated RBC Nucleated RBC % (auto) PT INR VBG pH VBG pCO2 VBG pO2 VBG HCO3 VBG O2 Saturation VBG Base Excess Anion Gap Estim Creat Clear Calc Estimated GFR POC Glucose 88 Random Glucose Lactic Acid Lactic Acid F/U @ 2Hr Calcium Magnesium Total Bilirubin AST ALT Alkaline Phosphatase Troponin I High Sens B-Natriuretic Peptide Total Protein Albumin Hold Red Top Hold Green Top COVID-19 (CARO) COVID-19 [employer] Assessment and Plan (1) Acute respiratory failure with hypoxia: Status: Acute (2) CHF (congestive heart failure): Status: Acute (3) Hypertensive emergency: Status: Acute Plan This is a 33-year-old female with pertinent history of ESRD on hemodialysis, 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 #. Acute on chronic hypoxemic respiratory failure due to acute on chronic congestive heart failure with reduced ejection fraction: Given IV Lasix in the ER. Consulted Nephrology, appreciate assistance. Continue beta-mohmaud #. Hypertensive emergency in a patient with poorly controlled hypertension due to medication noncompliance: Given IV labetalol in the ER. Resume home carvedilol, hydralazine #. Hyperkalemia: Improving with temporizing measures given in the ER. #. Fjh-jhffdcw-huhijgqig diabetes mellitus with diabetic polyneuropathy/retinopathy: Initiating Accu-Cheks with sliding scale insulin #. Mood disorder: Not on mood stabilizers #. CAD/cardiomyopathy: On beta-mohamud. Not on aspirin or statin #. Chronic pain with opioid seeking behavior: Will avoid IV Dilaudid as much as possible. On p.o. oxycodone #. Chronic anemia of kidney disease Med rec pending DVT prophylaxis: Heparin Full code Admit as inpatient and will require two night minimum hospital stay for management of decompensated heart failure, monitoring of blood pressure (as above), which is not possible in a lesser acute setting. Quality Stroke Does the patient have a stroke diagnosis?: No VTE Prior VTE?: No VTE Risk Level:: Medical - moderate - high VTE Device Contraindication: Treatment Not Indicated VTE Drug Contraindication: N/A - Med Ordered
--- NOTE | 2024-02-25 01:49 | PC.NURSE ---
PATIENT REFUSED HEPARIN INJECTION, EDUCATION PROVIDED, PROVIDER AWARE
[2024-02-25] MEDS: Labetalol HCL 100 MG/20 ML VIAL 20 MG IVPUSH ×2 (03:25→14:17)
[2024-02-25 03:40] LABS: Glucose, Whole Blood 100 mg/dL (60-115)
[2024-02-25] MEDS: oxyCODONE HCl Immed Release 5 MG TABLET 10 MG PO (04:00)
[2024-02-25 06:47] LABS: Glucose, Whole Blood 123 mg/dL (60-115)
[2024-02-25] MEDS: 0.9 % Sodium Chloride Flush 3 ML SYRINGE IVFLUSH ×3 (08:15→21:17)
[2024-02-25] MEDS: ondansetron HCL 4 MG/2 ML VIAL IVPUSH (08:15)
--- NOTE | 2024-02-25 09:26 | PHA.MEDREC ---
Pharmacy Consult ? Medication Reconciliation Pharmacy has completed the medication reconciliation. Spoke with pt at bedside. Pt confirms there has been no changes since her last discharge on 02/06/24. Pt last took her medications yesterday.
--- NOTE | 2024-02-25 09:42 | MHC.CM.PN ---
IMM 02/25/24, EMR REVIEWED, PT ADMITTED W/DYSPNEA, CM ATTEMPTED TO MEET W/PT WHO IS AT HD, INFO NOTED FROM PREVIOUS ADMIT PT DC'D 02/05, PT LIVES W/SISTER RE[facility], USES A W/C, HAS OUTPT HD AT [facility] T//SAT HOWEVER DOES NOT ATTEND SAT'S, ANTIC PT WILL DC HOME ONCE MEDICALLY CLEARED. PCP/HCP ON FILE.
--- NOTE | 2024-02-25 10:31 | PM.EVENT ---
Event Note Date of Service: 02/25/24 Event Note: Day Team Follow up S Seen and examined during dialysis; initialy resting and comfortable; when d/w her re: potential d/c after dialysis if BP stable, she started to have increased nausea/gagging. O vitals - last documented gen - resting comfortably initially; followed by [facility] - s1s2 lungs - clear neuro - non-focal A/P 33 w multiple medical problems admitted for dyspnea secondary to fluid overload from non-compliance with ESRD + acute on chronic HF temp of 100.6 this AM -- cultures sent from the ED continue bactrim dialysis per nephrology supportive care for GI symptoms remainder per H&P Time Spent With Patient Time: Total time managing care of this patient today ____ minutes.
[2024-02-25] MEDS: ceFAZolin Sodium/Dextrose,Iso 2 GM/50 ML PIGGYBACK IV (14:01)
[2024-02-25] MEDS: Metoclopramide HCl 10 MG/2 ML VIAL 5 MG IVPUSH ×2 (14:17→20:53)
[2024-02-25] MEDS: HYDROmorphone HCl 0.5 MG/0.5 ML SYRINGE IVPUSH ×2 (14:42→21:43)
--- NOTE | 2024-02-25 15:05 | PM.CNNEP ---
History of Present Illness Reason for Consult Consult date: 02/25/24 Reason for consult: ESRD Chief Complaint Chief complaint: Dyspnea History of Present Illness Narrative: ESRD poorly comliant with multiple hosp now readm with incr SOB. Last HD was 5 days ago per outpt HDU Overall feeling better but still SOB. Previous hosp cb line sepsis and Pcath changes and was on course of ABx at oupt HDU ( Cefipine) but duration unclear as she missed may Treatments. Unclear if she was also on Bactrim for [place] of prior line sepsisi as well Review of Systems Review of Systems Yes all other systems are reviewed and are negative Constitutional: Reports fatigue and Reports malaise Cardiovascular: Reports dyspnea on exertion Respiratory: Reports dyspnea on exertion Gastrointestinal: Reports no additional gastrointestinal complaints Endocrine: Reports fatigue PMFSH Past Medical History Medical History Non-compliance with renal dialysis Decompensated heart failure Congestive heart failure Renal failure Hypertension, uncontrolled Medical non-compliance Pericarditis Unspecified hypertension, condition or complication Metabolic acidosis Gastroparesis End stage chronic kidney disease Chronic kidney disease Anemia Chronic foot ulcer Plantar ulcer of left foot Major depressive disorder, single episode, severe ESRD (end stage renal disease) Non-compliance with renal dialysis Hypertensive urgency MDD (major depressive disorder), recurrent episode MDD (major depressive disorder) Renal failure Foot ulcer CKD (chronic kidney disease) Hypertension Diabetic foot Hyperkalemia Vomiting Renal failure Hypertension Migraine Chronic pain ESRD on dialysis Non-compliance with renal dialysis Hypertension End-stage renal disease (ESRD) Diabetic foot ulcer associated with type 2 diabetes mellitus Hypertensive emergency Diabetes ESRD needing dialysis Cardiomyopathy HFrEF (heart failure with reduced ejection fraction) delivery delivered Anemia in chronic kidney disease (CKD) CKD (chronic kidney disease) Headache, migraine Abnormal finding on echocardiogram Elevated troponin Chest pain Acute worsening of stage 3 chronic kidney disease Generalized edema Sepsis Cellulitis Pleural effusion CHF (congestive heart failure) (~06/07/22) Tachycardia Atypical chest pain Bone infection PAD (peripheral artery disease) Severe anemia Cellulitis and abscess of foot DM foot ulcer Osteomyelitis Asthma Depression with anxiety Diabetic retinopathy Type 2 diabetes mellitus with hyperglycemia, with long-term current use of insulin Blind right eye Diabetes Back pain Family History Family History Mother Coronary artery disease Myocardial infarction Stroke Diabetes mellitus Father Myocardial infarction Surgical History Surgical History Tubal ligation status Previous section Hx laparoscopic cholecystectomy Hx of surgical procedure (~09/11/23) 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 Social History Social History Household Members: Family Household Members Other:: Sister Housing: House Are you a primary primary care physician to a significant other at home: No Do you presently have visiting nurse or other home services: No Unable to assess alcohol history related to: Unknown Alcohol intake: never Comment: Remain w/ pt on commode. Patient Tobacco Use Status: Never used Tobacco Smoked in Last 30 Days: No e-Cigarette/Vaping Use: Never Used Patient Interested in Nicotine Replacement: No Patient Given Instructions on How to Stop Smoking: No Second Hand Smoke Exposure: No Use of substances other than those prescribed or required for medical reasons: Unknown Currently Displaying Signs/Symptoms of Drug Intoxication Withdrawal: No Any prior treatment program specific to substance use: No Have you been hit, kicked, punched, or otherwise hurt by someone within the past year? If so, by whom?: No Do you feel safe in your current relationship?: No Current Relationship Is there a partner from a previous relationship who is making you feel unsafe now?: No Are you made to feel afraid or neglected: No Advance Directives: Yes Advance Directives Information Provided: No Advance Directives on File: Yes Advance Directives Date on File: 08/28/23 Do you have a plan to hurt others: No Plan Recently lost weight without trying: No Eating poorly because of decreased appetite: No Nutrition Risks: No Nutritional Risk Patient : No : No Poor oral hygiene: No service: No Current occupational status: unemployed and disabled Gender identity: Female Meds Allergies Allergy/AdvReac Type Severity Reaction Status Date / Time morphine [MORPHINE] Allergy Intermediate Itching Verified 02/24/24 21:34 azithromycin [From Zithromax] Allergy Hives Verified 02/24/24 21:34 gabapentin Allergy Facial Verified 02/24/24 21:34 Swelling tramadol Allergy Facial Verified 02/24/24 21:34 Swelling vancomycin Allergy Anaphylaxis Verified 02/24/24 21:34 Active Medications: Current Medications Acetaminophen (Acetaminophen 325 Mg Tablet) 650 mg PO Q6H PRN PRN Reason: Pain, Mild 1-3,fever,headache Calcium Carbonate (Calcium Carbonate 750 Mg Tab.Chew) 750 mg PO Q4H PRN PRN Reason: Heartburn Carvedilol (Carvedilol 12.5 Mg Tablet) 12.5 mg PO BID [facility]; Protocol Last Admin: 02/25/24 14:06 Dose: Not Given Heparin Sodium (Porcine) (Heparin Sodium,Porcine 5,000 Unit/Ml Vial) 5,000 unit SUBCUT Q12H [facility] Last Admin: 02/25/24 14:07 Dose: Not Given Hydralazine HCl (Hydralazine Hcl 50 Mg Tablet) 50 mg PO TID [facility]; Protocol Hydromorphone HCl (Hydromorphone Hcl 0.5 Mg/0.5 Ml Syringe) 0.5 mg IVPUSH Q4H PRN; Protocol PRN Reason: Pain, Severe (Pain Scale 7-10) Last Admin: 02/25/24 14:42 Dose: 0.5 mg Magnesium Hydroxide (Milk Of Magnesia 30 Ml Oral.Susp) 30 ml PO DAILY PRN PRN Reason: Constipation Melatonin (Melatonin 3 Mg Tablet) 6 mg PO BEDTIME PRN PRN Reason: Insomnia Metoclopramide HCl (Metoclopramide Hcl 10 Mg/2 Ml Vial) 5 mg IVPUSH Q6H PRN PRN Reason: Nausea and Vomiting Last Admin: 02/25/24 14:17 Dose: 5 mg Ondansetron HCl (Ondansetron Hcl 4 Mg/2 Ml Vial) 4 mg IVPUSH Q8H PRN PRN Reason: Nausea and Vomiting Last Admin: 02/25/24 08:15 Dose: 4 mg Sodium Chloride (0.9 % Sodium Chloride Flush 3 Ml Syringe) 3 ml IVFLUSH QSHIFT [facility] Last Admin: 02/25/24 14:01 Dose: 3 ml Tamsulosin HCl (Tamsulosin Hcl 0.4 Mg Capsule) 0.4 mg PO BEDTIME VASILE Trimethoprim/Sulfamethoxazole (Sulfamethox/Trimeth 400/80 Tablet) 1 tab PO DAILY [facility] Last Admin: 02/25/24 14:07 Dose: Not Given Home Medications ?Medication ?Instructions ?Recorded ?Confirmed ?Last Taken ?Type albuterol sulfate 90 mcg/actuation 2 puff inhalation Q6H PRN wheezing 01/15/24 02/25/24 Unknown History aerosol inhaler (Ventolin HFA) lidocaine 5 % topical patch 1 patch topical DAILY 01/15/24 02/25/24 02/24/24 History nitroglycerin 0.4 mg sublingual 0.4 mg sublingual DIRECTED PRN 01/15/24 02/25/24 Unknown History tablet Angina Physical Exam Vital Signs: Last Vital Signs Temp 99.2 F 02/25/24 13:55 Pulse 103 H 02/25/24 13:55 Resp 16 02/25/24 13:55 BP 191/88 H 02/25/24 13:55 Pulse Ox 98 02/25/24 13:55 O2 Del Method Nasal Cannula 02/25/24 13:55 O2 Flow Rate 3 02/25/24 13:55 Oxygen Flow Rate 6 02/24/24 21:15 BMI result Body Mass Index 29.9 Results Lab Results 02/24/24 21:33 02/25/24 00:14 Lab results: Chemistry 02/24/24 02/25/24 21:33 00:14 Sodium 136 134 L Potassium 6.7 H* D 5.4 H Carbon Dioxide 11 L 14 L BUN 85 H 86 H Creatinine 8.77 H* 8.50 H* Calcium 7.4 L D 7.2 L Hematology 02/24/24 21:33 WBC 6.8 Hgb 9.5 L D Plt Count 180 Assessment and Plan (1) Acute respiratory failure with hypoxia: Status: Acute (2) CHF (congestive heart failure): Status: Acute (3) Hypertensive emergency: Status: Acute Plan This is a 33-year-old female with pertinent history of ESRD on hemodialysis, 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 SOB: d/t hypervol and missed HD Tx and severe HTN playing a role HyperK: repsonded to med Tx and now on HD DM Anemia Hemoaccess: PC and h/o line sepsis; need repeat bld cult Non-compliance Seveerf HTN: multifact REC: HD, repeat bld cult; abx as ntoed; meds as noted; repeat HD again tomorrow Currnelty seen on HD and overall feelin better Procedures Date of Service Date of Service: 02/25/24
--- NOTE | 2024-02-25 16:30 | P.CNID_ITS ---
History of Present Illness Data of Consult Service Date: 02/25/24 Requesting physician: Efraín Weeks Primary Care Provider: Genevieve Casillas MD HPI Reason for consult: bacteremia,MSSA She presents with shortness of breath and fatigue for a day. She has temperature now 100.6 and pulse 103. SHe has dialysis catheter left chest. She has quite prominent shaking chills when I am seeing her. Review of Systems 2 Review of Systems: chills PMFSH Past Medical History Medical History Hypertensive emergency Non-compliance with renal dialysis Decompensated heart failure Congestive heart failure Renal failure Hypertension, uncontrolled Medical non-compliance Pericarditis Unspecified hypertension, condition or complication Metabolic acidosis Gastroparesis End stage chronic kidney disease Chronic kidney disease Anemia Chronic foot ulcer Plantar ulcer of left foot Major depressive disorder, single episode, severe ESRD (end stage renal disease) Non-compliance with renal dialysis Hypertensive urgency MDD (major depressive disorder), recurrent episode MDD (major depressive disorder) Renal failure Foot ulcer CKD (chronic kidney disease) Hypertension Diabetic foot Hyperkalemia Vomiting Renal failure Hypertension Migraine Chronic pain ESRD on dialysis Non-compliance with renal dialysis Hypertension End-stage renal disease (ESRD) Diabetic foot ulcer associated with type 2 diabetes mellitus Diabetes ESRD needing dialysis Cardiomyopathy HFrEF (heart failure with reduced ejection fraction) delivery delivered Anemia in chronic kidney disease (CKD) CKD (chronic kidney disease) Headache, migraine Abnormal finding on echocardiogram Elevated troponin Chest pain Acute worsening of stage 3 chronic kidney disease Generalized edema Sepsis Cellulitis Pleural effusion CHF (congestive heart failure) (~06/07/22) Tachycardia Atypical chest pain Bone infection PAD (peripheral artery disease) Severe anemia Cellulitis and abscess of foot DM foot ulcer Osteomyelitis Asthma Depression with anxiety Diabetic retinopathy Type 2 diabetes mellitus with hyperglycemia, with long-term current use of insulin Blind right eye Diabetes Back pain Family History Family History Mother Coronary artery disease Myocardial infarction Stroke Diabetes mellitus Father Myocardial infarction Family history: reviewed and not pertinent Surgical History Surgical History Tubal ligation status Previous section Hx laparoscopic cholecystectomy Hx of surgical procedure (~09/11/23) 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 Social History Social History Household Members: Family Household Members Other:: Sister Housing: House Are you a primary pet care technician to a significant other at home: No Do you presently have visiting nurse or other home services: No Unable to assess alcohol history related to: Unknown Alcohol intake: never Comment: Remain w/ pt on commode. Patient Tobacco Use Status: Never used Tobacco Smoked in Last 30 Days: No e-Cigarette/Vaping Use: Never Used Patient Interested in Nicotine Replacement: No Patient Given Instructions on How to Stop Smoking: No Second Hand Smoke Exposure: No Use of substances other than those prescribed or required for medical reasons: Unknown Currently Displaying Signs/Symptoms of Drug Intoxication Withdrawal: No Any prior treatment program specific to substance use: No Have you been hit, kicked, punched, or otherwise hurt by someone within the past year? If so, by whom?: No Do you feel safe in your current relationship?: No Current Relationship Is there a partner from a previous relationship who is making you feel unsafe now?: No Are you made to feel afraid or neglected: No Advance Directives: Yes Advance Directives Information Provided: No Advance Directives on File: Yes Advance Directives Date on File: 08/28/23 Do you have a plan to hurt others: No Plan Recently lost weight without trying: No Eating poorly because of decreased appetite: No Nutrition Risks: No Nutritional Risk Patient : No : No Poor oral hygiene: No service: No Current occupational status: unemployed and disabled Gender identity: Female Meds Allergies Allergy/AdvReac Type Severity Reaction Status Date / Time morphine [MORPHINE] Allergy Intermediate Itching Verified 02/24/24 21:34 azithromycin [From Zithromax] Allergy Hives Verified 02/24/24 21:34 gabapentin Allergy Facial Verified 02/24/24 21:34 Swelling tramadol Allergy Facial Verified 02/24/24 21:34 Swelling vancomycin Allergy Anaphylaxis Verified 02/24/24 21:34 Active Medications: Current Medications Acetaminophen (Acetaminophen 325 Mg Tablet) 650 mg PO Q6H PRN PRN Reason: Pain, Mild 1-3,fever,headache Calcium Carbonate (Calcium Carbonate 750 Mg Tab.Chew) 750 mg PO Q4H PRN PRN Reason: Heartburn Carvedilol (Carvedilol 12.5 Mg Tablet) 12.5 mg PO BID [facility]; Protocol Last Admin: 02/25/24 14:06 Dose: Not Given Heparin Sodium (Porcine) (Heparin Sodium,Porcine 5,000 Unit/Ml Vial) 5,000 unit SUBCUT Q12H [facility] Last Admin: 02/25/24 14:07 Dose: Not Given Hydralazine HCl (Hydralazine Hcl 50 Mg Tablet) 50 mg PO TID [facility]; Protocol Hydromorphone HCl (Hydromorphone Hcl 0.5 Mg/0.5 Ml Syringe) 0.5 mg IVPUSH Q4H PRN; Protocol PRN Reason: Pain, Severe (Pain Scale 7-10) Last Admin: 02/25/24 14:42 Dose: 0.5 mg Magnesium Hydroxide (Milk Of Magnesia 30 Ml Oral.Susp) 30 ml PO DAILY PRN PRN Reason: Constipation Melatonin (Melatonin 3 Mg Tablet) 6 mg PO BEDTIME PRN PRN Reason: Insomnia Metoclopramide HCl (Metoclopramide Hcl 10 Mg/2 Ml Vial) 5 mg IVPUSH Q6H PRN PRN Reason: Nausea and Vomiting Last Admin: 02/25/24 14:17 Dose: 5 mg Ondansetron HCl (Ondansetron Hcl 4 Mg/2 Ml Vial) 4 mg IVPUSH Q8H PRN PRN Reason: Nausea and Vomiting Last Admin: 02/25/24 08:15 Dose: 4 mg Sodium Chloride (0.9 % Sodium Chloride Flush 3 Ml Syringe) 3 ml IVFLUSH QSHIFT [facility] Last Admin: 02/25/24 14:01 Dose: 3 ml Tamsulosin HCl (Tamsulosin Hcl 0.4 Mg Capsule) 0.4 mg PO BEDTIME [facility] Trimethoprim/Sulfamethoxazole (Sulfamethox/Trimeth 400/80 Tablet) 1 tab PO DAILY [facility] Last Admin: 02/25/24 14:07 Dose: Not Given Home Medications ?Medication ?Instructions ?Recorded ?Confirmed ?Last Taken ?Type albuterol sulfate 90 mcg/actuation 2 puff inhalation Q6H PRN wheezing 01/15/24 02/25/24 Unknown History aerosol inhaler (Ventolin HFA) lidocaine 5 % topical patch 1 patch topical DAILY 01/15/24 02/25/24 02/24/24 History nitroglycerin 0.4 mg sublingual 0.4 mg sublingual DIRECTED PRN 01/15/24 02/25/24 Unknown History tablet Angina Physical Exam 2 Vital Signs: Vital Signs: Last Vital Signs Temp 99.2 F 02/25/24 15:54 Pulse 97 02/25/24 15:54 Resp 16 02/25/24 15:54 BP 145/70 H 02/25/24 15:54 Pulse Ox 92 02/25/24 15:54 O2 Del Method Nasal Cannula 02/25/24 15:54 O2 Flow Rate 3 02/25/24 15:54 Oxygen Flow Rate 6 02/24/24 21:15 BMI result Body Mass Index 29.9 Skin: Other: slight reddish haze above left chest catheter line Results Labs 02/24/24 21:33 02/25/24 00:14 Labs: Short CBC 02/24/24 Range/Units 21:33 WBC 6.8 (4.8-10.8) X10*3/uL Hgb 9.5 L D (12.0-16.0) g/dl Hct 30.1 L D (37.0-47.0) % Plt Count 180 (160-400) X10*3/uL BMP 02/24/24 02/25/24 21:33 00:14 Sodium 136 134 L Potassium 6.7 H* D 5.4 H Chloride 101 101 Carbon Dioxide 11 L 14 L BUN 85 H 86 H Creatinine 8.77 H* 8.50 H* Calcium 7.4 L D 7.2 L Liver Function 02/24/24 Range/Units 21:33 Total Bilirubin 1.7 H (0.0-1.0) mg/dL AST 51 H (5-31) U/L ALT 13 (0-31) U/L Alkaline Phosphatase 189 H (39-117) U/L Albumin 3.7 (3.5-5.0) g/dL Microbiology Microbiology Results: Microbiology 02/24/24 22:04 Blood - Venous Blood Culture - Preliminary Prelim: [facility] Gram Stain only 02/24/24 22:05 Blood - Venous Blood Culture - Preliminary Prelim: [facility] Gram Stain only Assessment and Plan (1) Acute respiratory failure with hypoxia: Status: Acute (2) ESRD (end stage renal disease) on dialysis: Status: Acute Plan She has sepsis with fever and tachycardia and shaking chills. She has some red haziness upper part of chest where dialysis catheter is. She has MSSA bacteremia. Would stop Bactrim. Start Kefzol 2 g with each dialysis for 30 days. Check TTE evaluate endocarditis. Renal eval remove and replace catheter line.
[2024-02-25 17:43] LABS: Glucose, Whole Blood 82 mg/dL (60-115)
[2024-02-25] MEDS: Tamsulosin HCL 0.4 MG CAPSULE PO (21:17)
[2024-02-25] MEDS: carvediloL 12.5 MG TABLET PO (21:17)
[2024-02-25] MEDS: hydrALAZINE HCl 50 MG TABLET PO (21:17)
[2024-02-25 21:53] LABS: Glucose, Whole Blood 93 mg/dL (60-115)
[2024-02-25 22:07] LABS: Appearance Urine Cloudy; Color Urine Yellow; Glucose Urine UA Negative (Negative); Leukocyte Esterase Urine Large (3+) (Negative); Nitrite Urine Negative (Negative); PH 6.5 (5.0-9.0); Specific Gravity - Urine 1.015 (1.005-1.025); UMIC TRIGGER UACC YES; Urine Blood Large (3+) (Negative); Urine Ketones Negative (Negative); Urine Protein >=1000 (4+) mg/dL (Neg-Trace)
[2024-02-25 22:24] LABS: Bacteria Urine 1+ (None Seen); Hyaline Casts Urine 0-2 /LPF (0-2); RBC Urine >20 /HPF (0-2); Squamous Epithelial Cell Urine 0-2 /HPF (0-2); UACC Culture Trigger YES; WBC Urine >50 /HPF (0-5)
[2024-02-26] VITALS (10 sets, daily range): BP systolic 95–135; BP diastolic 52–75; PULSE 82–97; RESP 14–20; TEMP 36.6–37.3; O2SAT 92–98
[2024-02-26] MEDS: HYDROmorphone HCl 0.5 MG/0.5 ML SYRINGE IVPUSH ×5 (04:15→22:33)
[2024-02-26 06:37] LABS: MANUAL DIFF FLAG NO
[2024-02-26 07:04] LABS: Basophils Percent Auto 0.3 % (0-2); Eosinophils Percent Auto 0.3 % (0-4); Hemoglobin 10.3 g/dl (12.0-16.0); Imm Gran Abs Auto 0.07 X10*3/uL (0.00-0.03); Imm Gran Pct Auto 0.6 % (0.0-0.4); Lymphocytes Absolute Auto 0.4 X10*3/uL (1.2-4.9); Lymphocytes Percent Auto 3.6 % (20-40); Mean Corpuscular HGB Conc 32.2 g/dl (31.0-35.0); Mean Corpuscular Hemoglobin 29.8 pg (27.0-33.0); Mean Corpuscular Volume 92.5 fL (80.0-98.0); Mean Platelet Volume 12.8 fL (9.4-12.3); Monocytes Absolute Auto 0.6 X10*3/uL (0.1-1.2); Monocytes Percent Auto 5.6 % (2-11); Neutrophils Absolute Auto 10.2 x10*3/uL (2.0-8.3); Neutrophils Percent Auto 89.6 % (45-73); Red Blood Count 3.46 X10*6/uL (4.20-5.50); Red Cell Distribution Width 16.5 % (11.0-16.0); White Blood Count 11.4 X10*3/uL (4.8-10.8)
[2024-02-26 07:08] LABS: Platelet Count 82 X10*3/uL (160-400)
[2024-02-26 07:10] LABS: Glucose, Whole Blood 71 mg/dL (60-115)
[2024-02-26] MEDS: Metoclopramide HCl 10 MG/2 ML VIAL 5 MG IVPUSH ×2 (08:58→18:06)
[2024-02-26] MEDS: 0.9 % Sodium Chloride Flush 3 ML SYRINGE IVFLUSH (08:59)
[2024-02-26 10:57] LABS: Glucose, Whole Blood 88 mg/dL (60-115)
--- NOTE | 2024-02-26 11:36 | P.PNIM_ITS ---
Subjective Subjective Date of Service: 02/26/24 Interval History: Seen and examined this morning Discussed with her about her positive blood cultures and the need to remove dialysis catheter Discussed with her about compliance with her medications She reports some nausea this morning Review of Systems Negative except HPI/interval history. Physical Exam 2 Vital Signs: Vital Signs: Last Vital Signs Temp 98.9 F 02/26/24 11:02 Pulse 93 02/26/24 11:02 Resp 18 02/26/24 11:02 BP 110/58 L 02/26/24 11:02 Pulse Ox 97 02/26/24 11:02 O2 Del Method Nasal Cannula 02/26/24 11:02 O2 Flow Rate 3 02/26/24 11:02 Oxygen Flow Rate 6 02/24/24 21:15 BMI result Body Mass Index 29.9 Const: Other: General - no acute distress, appears nauseous, appears chronically ill, blind Cardiovascular - regular rate and rhythm, S1-S2 Lungs - normal respiratory effort, clear to auscultation bilaterally, no wheezing Abdomen - soft, nontender, no rebound or guarding Extremities - bilateral TMA Skin - some tenderness to palpation surrounding dialysis catheter Neuro - awake and alert, no focal deficits Objective Data Active Medications Acetaminophen (Acetaminophen 325 Mg Tablet) 650 mg PO Q6H PRN PRN Reason: Pain, Mild 1-3,fever,headache Calcium Carbonate (Calcium Carbonate 750 Mg Tab.Chew) 750 mg PO Q4H PRN PRN Reason: Heartburn Carvedilol (Carvedilol 12.5 Mg Tablet) 12.5 mg PO BID [facility]; Protocol Last Admin: 02/26/24 09:06 Dose: Not Given Documented By: CHET Non-Admin Reason: Patient Refused Heparin Sodium (Porcine) (Heparin Sodium,Porcine 5,000 Unit/Ml Vial) 5,000 unit SUBCUT Q12H [facility] Last Admin: 02/26/24 00:28 Dose: Not Given Documented By: MONTEZ Non-Admin Reason: Patient Refused Hydralazine HCl (Hydralazine Hcl 50 Mg Tablet) 50 mg PO TID [facility]; Protocol Last Admin: 02/26/24 09:06 Dose: Not Given Documented By: CHET Non-Admin Reason: Patient Refused Hydromorphone HCl (Hydromorphone Hcl 0.5 Mg/0.5 Ml Syringe) 0.5 mg IVPUSH Q4H PRN; Protocol PRN Reason: Pain, Severe (Pain Scale 7-10) Last Admin: 02/26/24 09:01 Dose: 0.5 mg Documented By: CHET Magnesium Hydroxide (Milk Of Magnesia 30 Ml Oral.Susp) 30 ml PO DAILY PRN PRN Reason: Constipation Melatonin (Melatonin 3 Mg Tablet) 6 mg PO BEDTIME PRN PRN Reason: Insomnia Metoclopramide HCl (Metoclopramide Hcl 10 Mg/2 Ml Vial) 5 mg IVPUSH Q6H PRN PRN Reason: Nausea and Vomiting Last Admin: 02/26/24 08:58 Dose: 5 mg Documented By: CHET Ondansetron HCl (Ondansetron Hcl 4 Mg/2 Ml Vial) 4 mg IVPUSH Q8H PRN PRN Reason: Nausea and Vomiting Last Admin: 02/25/24 08:15 Dose: 4 mg Documented By: LARRY Sodium Chloride (0.9 % Sodium Chloride Flush 3 Ml Syringe) [facility] [place] Last Admin: 02/26/24 08:59 Dose: 3 ml Documented By: CHET Tamsulosin HCl (Tamsulosin Hcl 0.4 Mg Capsule) 0.4 mg PO BEDTIME [facility] Last Admin: 02/25/24 21:17 Dose: 0.4 mg Documented By: MONTEZ Trimethoprim/Sulfamethoxazole (Sulfamethox/Trimeth 400/80 Tablet) 1 tab PO DAILY [facility] Last Admin: 02/26/24 09:06 Dose: Not Given Documented By: CHET Non-Admin Reason: Patient Refused Labs 02/26/24 06:12 02/25/24 00:14 Labs: Laboratory Results - last 24 hr 02/25/24 02/25/24 02/25/24 17:39 20:50 22:00 MCV MCH MCHC RDW Plt Count MPV Immature Gran % (Auto) Neut % (Auto) Lymph % (Auto) Young % (Auto) Eos % (Auto) Baso % (Auto) Lymph # (Auto) Young # (Auto) Eos # (Auto) Baso # (Auto) Abs Immat Gran (auto) Absolute Neuts (auto) Absolute Nucleated RBC Nucleated RBC % (auto) POC Glucose 82 93 Urine Color Yellow Urine Appearance Cloudy Urine pH 6.5 Ur Specific [place] 1.015 Urine Protein >=1000 (4+) H Urine Glucose (UA) Negative Urine Ketones Negative Urine Blood Large (3+) H Urine Nitrite Negative Ur Leukocyte Esterase Large (3+) H Urine RBC >20 H Urine WBC >50 H Ur Squamous Epith Cells 0-2 Urine Bacteria 1+ Hyaline Casts 0-2 02/26/24 02/26/24 02/26/24 06:12 07:05 10:51 MCV 92.5 MCH 29.8 MCHC 32.2 RDW 16.5 H Plt Count 82 L D MPV 12.8 H Immature Gran % (Auto) 0.6 H Neut % (Auto) 89.6 H Lymph % (Auto) 3.6 L Young % (Auto) 5.6 Eos % (Auto) 0.3 Baso % (Auto) 0.3 Lymph # (Auto) 0.4 L Young # (Auto) 0.6 Eos # (Auto) 0.0 Baso # (Auto) 0.0 Abs Immat Gran (auto) 0.07 H Absolute Neuts (auto) 10.2 H Absolute Nucleated RBC 0.000 Nucleated RBC % (auto) 0.0 POC Glucose 71 88 Urine Color Urine Appearance Urine pH Ur Specific [place] Urine Protein Urine Glucose (UA) Urine Ketones Urine Blood Urine Nitrite Ur Leukocyte Esterase Urine RBC Urine WBC Ur Squamous Epith Cells Urine Bacteria Hyaline Casts Microbiology Microbiology Results: Microbiology 02/25/24 22:25 Urine Culture - Preliminary Urine clean catch - Clean Catch Midstream Culture in progress. 02/24/24 22:04 Blood Culture - Preliminary Blood - Venous Staphylococcus aureus 02/24/24 22:05 Blood Culture - Preliminary Blood - Venous Staphylococcus aureus Assessment and Plan (1) Acute respiratory failure with hypoxia: Status: Acute Plan 33-year-old with multiple medical problems who is noncompliant with treatment and presenting with shortness of breath. Found to be in fluid overload due to missed dialysis. Hospital course further complicated by Gram-positive bacteremia. 1. Acute on chronic respiratory failure with hypoxia Due to underlying congestive heart failure as well as ESRD and noncompliance with scheduled dialysis sessions And had dialysis on 02/24, we will have repeat on 02/25 Respiratory failure has improved to her baseline, continue 3 L 2. Staph aureus bacteremia PCR showing MSSA IV Kefzol 2 g after dialysis Plan for dialysis catheter removal today after her dialysis session, culture to be sent We will repeat blood cultures after dialysis today We will need eventual catheter replacement - either temporary versus PermCath pending repeat blood culture results Id input appreciated Nephrology appreciated will stop bactrim per ID recs 3. ESRD on HD Dialysis per Nephrology, plan for today 4. Chronic pain and opiate dependence Acutely worsened, on IV Dilaudid, taper as tolerated 5. DM Continue sliding scale and point of cares 5. CAD/cardiomyopathy Continue baseline meds 6. Hypertension Due to noncompliance Improved Full code DVT prophylaxis heparin Quality Stroke Does the patient have a stroke diagnosis?: No VTE Prior VTE?: No VTE Risk Level:: Medical - moderate - high VTE Device Contraindication: Treatment Not Indicated VTE Drug Contraindication: N/A - Med Ordered
[2024-02-26] MEDS: ondansetron HCL 4 MG/2 ML VIAL IVPUSH ×2 (14:04→22:33)
--- NOTE | 2024-02-26 15:16 | PM.PROC ---
Brief Operative Note Date of procedure: 02/26/24 Pre-op diagnosis: Bacteremia/CLABSI Post-op diagnosis: same Procedure: Left IJ Permacath removed after completion of dialysis. Tip sent for culture. No immediate complications. Anesthesia: local
[2024-02-26 17:29] LABS: Glucose, Whole Blood 101 mg/dL (60-115)
[2024-02-26] MEDS: ceFAZolin Sodium/Dextrose,Iso 2 GM/50 ML PIGGYBACK IV (18:06)
[2024-02-26] MEDS: Tamsulosin HCL 0.4 MG CAPSULE PO (21:45)
[2024-02-26] MEDS: carvediloL 12.5 MG TABLET PO (21:45)
[2024-02-26] MEDS: hydrALAZINE HCl 50 MG TABLET PO (21:45)
[2024-02-27] VITALS (9 sets, daily range): BP systolic 85–135; BP diastolic 50–72; PULSE 68–86; RESP 16–20; TEMP 36.1–36.6; O2SAT 94–100
[2024-02-27] MEDS: 0.9 % Sodium Chloride Flush 3 ML SYRINGE IVFLUSH ×4 (00:10→20:37)
[2024-02-27] MEDS: HYDROmorphone HCl 0.5 MG/0.5 ML SYRINGE IVPUSH ×4 (02:53→15:57)
[2024-02-27 08:21] LABS: Glucose, Whole Blood 74 mg/dL (60-115)
[2024-02-27] MEDS: hydrALAZINE HCl 50 MG TABLET PO ×2 (09:57→15:57)
[2024-02-27] MEDS: carvediloL 12.5 MG TABLET PO (09:58)
[2024-02-27] MEDS: Metoclopramide HCl 10 MG/2 ML VIAL 5 MG IVPUSH ×2 (09:58→17:14)
--- NOTE | 2024-02-27 10:49 | HO.PM.IMPN ---
Subjective Subjective Date of Service: 02/27/24 Interval History: Seen and examined this morning positive blood cultures and the need to remove dialysis catheter no c/o pain Review of Systems Negative except HPI/interval history. Physical Exam Vital Signs: Vital Signs: Last Vital Signs Temp 97.7 F 02/27/24 07:57 Pulse 81 02/27/24 07:57 Resp 17 02/27/24 07:57 BP 133/66 02/27/24 07:57 Pulse Ox 99 02/27/24 07:57 O2 Del Method Room Air 02/27/24 07:57 O2 Flow Rate 2 02/27/24 03:09 Oxygen Flow Rate 6 02/24/24 21:15 BMI result Body Mass Index 29.9 Appearing in no acute distress lung sounds are clear to auscultation heart regular rate rhythm, clear S1, S2 positive bowel sounds, abdomen is soft, nontender neuro patient is alert x3, no focal deficits Objective Data Active Medications Acetaminophen (Acetaminophen 325 Mg Tablet) 650 mg PO Q6H PRN PRN Reason: Pain, Mild 1-3,fever,headache Calcium Carbonate (Calcium Carbonate 750 Mg Tab.Chew) 750 mg PO Q4H PRN PRN Reason: Heartburn Carvedilol (Carvedilol 12.5 Mg Tablet) 12.5 mg PO BID [facility]; Protocol Last Admin: 02/27/24 09:58 Dose: 12.5 mg Documented By: BJ Heparin Sodium (Porcine) (Heparin Sodium,Porcine 5,000 Unit/Ml Vial) 5,000 unit SUBCUT Q12H [facility] Last Admin: 02/27/24 00:58 Dose: Not Given Documented By: MARIEL Non-Admin Reason: Patient Refused Hydralazine HCl (Hydralazine Hcl 50 Mg Tablet) 50 mg PO TID [facility]; Protocol Last Admin: 02/27/24 09:57 Dose: 50 mg Documented By: KEVINCIAV Hydromorphone HCl (Hydromorphone Hcl 0.5 Mg/0.5 Ml Syringe) 0.5 mg IVPUSH Q4H PRN; Protocol PRN Reason: Pain, Severe (Pain Scale 7-10) Last Admin: 02/27/24 06:53 Dose: 0.5 mg Documented By: MARIEL Magnesium Hydroxide (Milk Of Magnesia 30 Ml Oral.Susp) 30 ml PO DAILY PRN PRN Reason: Constipation Melatonin (Melatonin 3 Mg Tablet) 6 mg PO BEDTIME PRN PRN Reason: Insomnia Metoclopramide HCl (Metoclopramide Hcl 10 Mg/2 Ml Vial) 5 mg IVPUSH Q6H PRN PRN Reason: Nausea and Vomiting Last Admin: 02/27/24 09:58 Dose: 5 mg Documented By: BJ Ondansetron HCl (Ondansetron Hcl 4 Mg/2 Ml Vial) 4 mg IVPUSH Q8H PRN PRN Reason: Nausea and Vomiting Last Admin: 02/26/24 22:33 Dose: 4 mg Documented By: CHRISTOPHER Sodium Chloride (0.9 % Sodium Chloride Flush 3 Ml Syringe) 3 ml IVFLUSH QSHIFT COUNT [facility]CLUD[facility] Last Admin: 02/27/24 09:58 Dose: 3 ml Documented By: BJ Tamsulosin HCl (Tamsulosin Hcl 0.4 Mg Capsule) 0.4 mg PO BEDTIME [facility] Last Admin: 02/26/24 21:45 Dose: 0.4 mg Documented By: CHRISTOPHER Labs 02/26/24 06:12 02/25/24 00:14 Labs: Laboratory Results - last 24 hr 02/26/24 02/26/24 02/27/24 10:51 17:24 08:15 POC Glucose 88 101 74 Microbiology Microbiology Results: Microbiology 02/25/24 22:25 Urine Culture - Preliminary Urine clean catch - Clean Catch Midstream Enterococcus/Streptococcus sp 02/26/24 15:00 Catheter Tip Culture - Preliminary Catheter Tip - Other Staphylococcus aureus 02/24/24 22:05 Blood Culture - Final Blood - Venous Staphylococcus aureus 02/24/24 22:04 Blood Culture - Final Blood - Venous Staphylococcus aureus Assessment and Plan (1) Acute respiratory failure with hypoxia: Status: Acute Plan 33-year-old with multiple medical problems who is noncompliant with treatment and presenting with shortness of breath. Found to be in fluid overload due to missed dialysis. Hospital course further complicated by Gram-positive bacteremia. Acute on chronic respiratory failure with hypoxia Due to underlying congestive heart failure as well as ESRD and noncompliance with scheduled dialysis sessions dialysis on 02/24, 02/25 Respiratory failure has improved to her baseline, continue 3 L Staph aureus bacteremia PCR showing MSSA IV Kefzol 2 g after dialysis dialysis catheter removal 02/25, culture sent eventual catheter replacement>temporary versus PermCath, pending repeat blood culture results Id input appreciated> bactrim stopped Nephrology appreciated Enterococcus/Streptococcus UTI Continue Kefzol ESRD on HD Dialysis per Nephrology Chronic pain and opiate dependence Acutely worsened, on IV Dilaudid, taper as tolerated DM 2 Continue sliding scale and point of cares CAD/cardiomyopathy Continue baseline meds Hypertension Due to noncompliance Improved Full code DVT prophylaxis heparin Quality Stroke Does the patient have a stroke diagnosis?: No VTE Prior VTE?: No VTE Risk Level:: Medical - moderate - high VTE Device Contraindication: Treatment Not Indicated VTE Drug Contraindication: N/A - Med Ordered
[2024-02-27 11:17] LABS: Glucose, Whole Blood 109 mg/dL (60-115)
[2024-02-27] MEDS: ondansetron HCL 4 MG/2 ML VIAL IVPUSH (13:05)
[2024-02-27] MEDS: diphenhydrAMINE HCL 50 MG/ML VIAL 12.5 MG IVPUSH (13:05)
[2024-02-27 15:37] LABS: Glucose, Whole Blood 114 mg/dL (60-115)
[2024-02-27 19:08] LABS: Anion Gap 14 (12-20); Blood Urea Nitrogen 42 mg/dL (9-16); Calcium 6.9 mg/dL (8.4-10.2); Carbon Dioxide 20 mmol/L (22-29); Chloride 99 mmol/L (96-108); Creatinine Clr Calc Pharmacy 16.7; Estimated Glomerular Filt Rate 10; Glucose Random 122 mg/dL (60-115); Potassium 3.9 mmol/L (3.3-5.1); Sodium 129 mmol/L (135-145)
--- NOTE | 2024-02-27 19:17 | PM.EVENT ---
Event Note Date of Service: 02/27/24 Event Note: Nurse reported low blood pressure. Patient with underlying decompensated CHF and ESRD so unable to do 30 cc per kg fluid resuscitation. Will order IV colloids and crystalloids. Hold tamsulosin, Coreg and hydralazine. Obtaining lactic acid. Noted she is on cefazolin for gram positive MSSA bacteremia. She is asymptomatic, denies lightheadedness or dizziness. Closely monitor blood pressure. Time Spent With Patient Time: Total time managing care of this patient today ____ minutes.
[2024-02-27 20:24] LABS: Lactic Acid 1.2 mmol/L (0.5-2.0)
[2024-02-27 20:33] LABS: Glucose, Whole Blood 109 mg/dL (60-115)
--- NOTE | 2024-02-27 22:53 | PC.NURSE ---
At 1915 blood pressure found to be low. Retaken manually and found to be at 85/50. Dr Sewell notified and Lactic ordered as well as 500mL LR bolus and two dose of Albumin. Initially pt refused lactic draw but explained the importance of result seeing as other cultures have come back positive and if elevated can be as sign of infection after a while pt agreed but refused any other other lab draws for he night. Provider notified. When nurse when to hang bolus and album IV access found to be leaking. Charge nurse notified as well as nursing supervisor cold rolling. Attempt was made by nursing supervisor cold rolling to find ICU nurse to place US guided access but no one came to floor. Nursing supervisor cold rolling tried to find someone in ED to attempt. Pt still without IV at this time
[2024-02-27] MEDS: Albumin Human 25 % 100 ML IV (23:42)
[2024-02-28] VITALS (11 sets, daily range): BP systolic 107–158; BP diastolic 67–95; PULSE 74–87; RESP 14–20; TEMP 36.2–36.7; O2SAT 94–100
[2024-02-28] MEDS: diphenhydrAMINE HCL 50 MG/ML VIAL 12.5 MG IVPUSH ×3 (00:03→21:07)
--- NOTE | 2024-02-28 01:31 | PC.NURSE ---
Assumed care at 2300. Pt BP low on prior shift, pt lost IV access. IV placed by [employer] via ultrasound around 2315 - 20 RUE. Pt repeat SBP improved to 130s. Dr Sewell notified - HOLD IVF bolus and albumin (albumin was stopped, only approx 15mL infused). Pt requesting IV dilaudid - Per Dr. Sewell no IV dilaudid, pt is aware.
[2024-02-28] MEDS: HYDROmorphone HCl 0.5 MG/0.5 ML SYRINGE IVPUSH ×5 (03:53→21:07)
[2024-02-28 07:58] LABS: Glucose, Whole Blood 85 mg/dL (60-115)
[2024-02-28] MEDS: ondansetron HCL 4 MG/2 ML VIAL IVPUSH ×2 (09:15→21:07)
[2024-02-28] MEDS: 0.9 % Sodium Chloride Flush 3 ML SYRINGE IVFLUSH ×3 (09:15→21:09)
--- NOTE | 2024-02-28 11:07 | HO.PM.IMPN ---
Subjective Subjective Date of Service: 02/28/24 Interval History: seen and examined eating breakfast no nausea/vomiting Review of Systems Negative except HPI/interval history. Physical Exam Vital Signs: Vital Signs: Last Vital Signs Temp 97.1 F 02/28/24 03:23 Pulse 76 02/28/24 11:05 Resp 14 02/28/24 11:05 BP 145/91 H 02/28/24 11:05 Pulse Ox 100 02/28/24 11:05 O2 Del Method Nasal Cannula 02/28/24 11:05 O2 Flow Rate 2 02/28/24 11:05 Oxygen Flow Rate 6 02/24/24 21:15 BMI result Body Mass Index 29.9 Const: Other: General - no acute distress, appears nauseous, appears chronically ill, blind Cardiovascular - regular rate and rhythm, S1-S2 Lungs - normal respiratory effort, clear to auscultation bilaterally, no wheezing Abdomen - soft, nontender, no rebound or guarding Extremities - bilateral TMA Neuro - awake and alert, no focal deficits Objective Data Active Medications Acetaminophen (Acetaminophen 325 Mg Tablet) 650 mg PO Q6H PRN PRN Reason: Pain, Mild 1-3,fever,headache Calcium Carbonate (Calcium Carbonate 750 Mg Tab.Chew) 750 mg PO Q4H PRN PRN Reason: Heartburn Carvedilol (Carvedilol 12.5 Mg Tablet) 12.5 mg PO BID [facility]; Protocol Last Admin: 02/27/24 09:58 Dose: 12.5 mg Documented By: BJ Diphenhydramine HCl (Diphenhydramine Hcl 50 Mg/Ml Vial) 12.5 mg IVPUSH Q6H PRN PRN Reason: Itching Last Admin: 02/28/24 09:15 Dose: 12.5 mg Documented By: KARLI Glucose (Glucose Gel 15 Gm Gel..Gram.) 15 gm PO Q15M PRN; Protocol PRN Reason: per Hypoglycemia Standing Ord. Heparin Sodium (Porcine) (Heparin Sodium,Porcine 5,000 Unit/Ml Vial) 5,000 unit SUBCUT Q12H [facility] Last Admin: 02/28/24 00:52 Dose: Not Given Documented By: MARIEL Non-Admin Reason: Patient Refused Hydralazine HCl (Hydralazine Hcl 50 Mg Tablet) 50 mg PO TID [facility]; Protocol Last Admin: 02/27/24 15:57 Dose: 50 mg Documented By: BJ Hydromorphone HCl (Hydromorphone Hcl 0.5 Mg/0.5 Ml Syringe) 0.5 mg IVPUSH Q4H PRN; Protocol PRN Reason: Pain, Severe (Pain Scale 7-10) Last Admin: 02/28/24 09:15 Dose: 0.5 mg Documented By: KARLI Dextrose (D10) 250 mls @ 750 mls/hr IV Q15M PRN; Protocol PRN Reason: per Hypoglycemia Standing Ord. Insulin Human Lispro (Insulin Lispro 100 Unit/Ml 3 Ml Vial) 0 unit SUBCUT QIDACHS [facility]; Protocol Last Admin: 02/28/24 07:57 Dose: Not Given Documented By: KARLI Non-Admin Reason: No Insulin Coverage Magnesium Hydroxide (Milk Of Magnesia 30 Ml Oral.Susp) 30 ml PO DAILY PRN PRN Reason: Constipation Melatonin (Melatonin 3 Mg Tablet) 6 mg PO BEDTIME PRN PRN Reason: Insomnia Metoclopramide HCl (Metoclopramide Hcl 10 Mg/2 Ml Vial) 5 mg IVPUSH Q6H PRN PRN Reason: Nausea and Vomiting Last Admin: 02/27/24 17:14 Dose: 5 mg Documented By: BJ Ondansetron HCl (Ondansetron Hcl 4 Mg/2 Ml Vial) 4 mg IVPUSH Q8H PRN PRN Reason: Nausea and Vomiting Last Admin: 02/28/24 09:15 Dose: 4 mg Documented By: KARLI Sodium Chloride (0.9 % Sodium Chloride Flush 3 Ml Syringe) 3 ml IVFSH [facility] Last Admin: 02/28/24 09:15 Dose: 3 ml Documented By: KARLI Tamsulosin HCl (Tamsulosin Hcl 0.4 Mg Capsule) 0.4 mg PO BEDTIME [facility] Last Admin: 02/26/24 21:45 Dose: 0.4 mg Documented By: LOISL Labs 02/26/24 06:12 02/27/24 18:19 Labs: Laboratory Results - last 24 hr 02/27/24 02/27/24 02/27/24 11:12 15:30 18:19 Anion Gap 14 Estim Creat Clear Calc 16.7 Estimated GFR 10 POC Glucose 109 114 Random Glucose 122 H Lactic Acid Calcium 6.9 L 02/27/24 02/27/24 02/28/24 20:00 20:28 07:54 Anion Gap Estim Creat Clear Calc Estimated GFR POC Glucose 109 85 Random Glucose Lactic Acid 1.2 Calcium Microbiology Microbiology Results: Microbiology 02/26/24 16:29 Blood Culture - Final Blood - Venous Staphylococcus aureus 02/26/24 16:29 Blood Culture - Final Blood - Venous Staphylococcus aureus 02/26/24 15:00 Catheter Tip Culture - Final Catheter Tip - Other Staphylococcus aureus 02/25/24 22:25 Urine Culture - Final Urine clean catch - Clean Catch Midstream Enterococcus faecalis 02/24/24 22:05 Blood Culture - Final Blood - Venous Staphylococcus aureus 02/24/24 22:04 Blood Culture - Final Blood - Venous Staphylococcus aureus Assessment and Plan (1) Acute respiratory failure with hypoxia: Status: Acute Plan 33-year-old with multiple medical problems who is noncompliant with treatment and presenting with shortness of breath. Found to be in fluid overload due to missed dialysis. Hospital course further complicated by Gram-positive bacteremia. Acute on chronic respiratory failure with hypoxia Due to underlying congestive heart failure as well as ESRD and noncompliance with scheduled dialysis sessions dialysis on 02/24, 02/25 Respiratory failure has improved to her baseline, continue 3 L MSSA bacteremia PCR showing MSSA IV Kefzol 2 g after dialysis dialysis catheter removal 02/25, culture sent - positive for MSSA ID input appreciated d/w Dr Siddiqi -- will place temp cath today for dialysis eventual permacath once cultures cleared Enterococcus UTI to d/w ID re: need to Rx ESRD on HD Dialysis per Nephrology Chronic pain and opiate dependence Acutely worsened, on IV Dilaudid, taper as tolerated DM 2 Continue sliding scale and point of cares CAD/cardiomyopathy Continue baseline meds Hypertension Due to noncompliance Improved thrombocytopenia chronically low, will check labs Full code DVT prophylaxis heparin Quality Stroke Does the patient have a stroke diagnosis?: No VTE Prior VTE?: No VTE Risk Level:: Medical - moderate - high VTE Device Contraindication: Treatment Not Indicated VTE Drug Contraindication: N/A - Med Ordered
--- NOTE | 2024-02-28 11:08 | P.CDIM_ITS ---
PROVIDER RESPONSE TEXT: To clarify, the appropriate diagnosis supported by the clinical indicators: Other (explain): MSSA bacteremia - Sepsis ruled out QUERY TEXT: PHYSICIAN'S DOCUMENTATION REQUEST Date of Query: 02/28/2024 09:23 AM EST Patient Name: Shereen Taylor Admit Date: 02/25/2024 Dear Efraín Weeks MD, A review of the medical record indicates additional documentation may be needed. Please review below and update the documentation accordingly. Documentation on Infectious Disease Consultation progress note dated 02/25/24 included the diagnosis of sepsis. The patient's infectious clinical indicators include: temperature 100.6 pulse 103 Per Hospitalist Progress Note 02/26/24: Staph aureus bacteremia PCR showing MSSA IV Kefzol 2 g after dialysis Plan for dialysis catheter removal today after her dialysis session, culture to be sent Recognized standard criteria for this condition and other infectious definitions includes: Bacteremia Abnormal laboratory test - does not indicate a clinically ill patient Sepsis Systemic manifestations of infection, with 2 or more SIRS criteria which include: Fever > 100.4?F or hypothermia < 96.8?F Leukocytosis - WBC > 12,000 or leukopenia, WBC < 4,000, or > 10% bands Tachycardia- > 90 beats/minute Tachypnea- RR > 20 breaths/minute or PaCO2 < 32mmHg Source: [employer] Manual 2013 Documentation should include the known or suspected organism, and the underlying infection, such as U TI or pneumonia Severe Sepsis Sepsis with associated acute organ dysfunction, such as renal or respiratory failure Documentation should indicate the association between the sepsis and the organ dysfunction Septic Shock Severe sepsis with associated with circulatory failure, evidenced by hypotension and hypoperfusion Based on the above information and the recognized standard for sepsis, could you please clarify if th is diagnoses is still accurate and reflective of the patient's condition to ensure quality of the medical record. Sepsis is/was present on admission and is a clinical diagnosis After study, Sepsis has been ruled out Other (explain) Clinically unable to determine (explain) Thank you, Latoya Hooker RN Use of terms such as suspected, likely, concern for, or probable (associated with a specific diagnosi s that is being evaluated, monitored, or treated as if it exists) are acceptable and can be coded in the inpatient se tting, when documented at the time of discharge. Please use your independent medical judgment in providing your response. THIS QUERY IS PART OF THE PERMANENT MEDICAL RECORD
--- NOTE | 2024-02-28 11:25 | PM.PROC ---
Brief Operative Note Date of procedure: 02/28/24 Pre-op diagnosis: Needs temporary access for HD, persistent bacteremia Post-op diagnosis: same Procedure: Left IJ 24 cm Trialysis catheter placed using US and Fluoro. Tip at cavoatrial junction. Ok for use. Anesthesia: local
--- NOTE | 2024-02-28 11:53 | MHC.CM.PN ---
EMR REVIEWED, PT W/PERSISTENT BACTEREMIA, HD CATH REMOVED ON 02/25, BC'S CONT TO COME BACK POSITIVE, PER HOSPITALIST ANTIC PT WILL BE HERE THROUGH W/E AND WILL NEED NEW HD CATH PLACED PRIOR TO DC, CM WILL CONT TO FOLLOW DC NEEDS.
[2024-02-28 12:17] LABS: Glucose, Whole Blood 102 mg/dL (60-115)
--- NOTE | 2024-02-28 15:53 | HO.WOUND ---
Wound Consult: Initial Attempted 33yr old?female admitted to [facility] on 02/25/24 - See progress notes and H&P for detailed history.? Wound consult placed for Chronic wounds to bilateral feet.? Patient is well known to this music writer from recent and frequent admissions. The patient was about to be transported to Dialysis and direct care nurse reported wound dressings to bilateral feet were already completed today. Will attempt wound assessment tomorrow 02/29/24.
--- NOTE | 2024-02-28 17:38 | P.PNNP_ITS ---
Subjective Subjective Date of Service: 02/28/24 Interval history: Seen and examiend, events n oted S/P Temp HD line placeement Physical Exam 2 Vital Signs: Vital Signs: Last Vital Signs Temp 97.4 F 02/28/24 15:18 Pulse 76 02/28/24 15:18 Resp 18 02/28/24 15:18 BP 129/83 02/28/24 15:18 Pulse Ox 95 02/28/24 15:18 O2 Del Method Nasal Cannula 02/28/24 15:18 O2 Flow Rate 3 02/28/24 15:18 Oxygen Flow Rate 6 02/24/24 21:15 BMI result Body Mass Index 29.9 Const: Other: General - no acute distress, appears nauseous, appears chronically ill, blind Cardiovascular - regular rate and rhythm, S1-S2 Lungs - normal respiratory effort, clear to auscultation bilaterally, no wheezing Abdomen - soft, nontender, no rebound or guarding Extremities - bilateral TMA Neuro - awake and alert, no focal deficits Skin: Other: slight reddish haze above left chest catheter line Objective Data Labs 02/26/24 06:12 02/27/24 18:19 Labs: Laboratory Results - last 24 hr 02/27/24 02/27/24 02/27/24 18:19 20:00 20:28 Sodium 129 L Potassium 3.9 D Chloride 99 Carbon Dioxide 20 L Anion Gap 14 BUN 42 H Creatinine 4.95 H* Estim Creat Clear Calc 16.7 Estimated GFR 10 POC Glucose 109 Random Glucose 122 H Lactic Acid 1.2 Calcium 6.9 L 02/28/24 02/28/24 07:54 12:13 Sodium Potassium Chloride Carbon Dioxide Anion Gap BUN Creatinine Estim Creat Clear Calc Estimated GFR POC Glucose 85 102 Random Glucose Lactic Acid Calcium Microbiology Microbiology Results: Microbiology 02/26/24 16:29 Blood - Venous Blood Culture - Final Staphylococcus aureus 02/26/24 16:29 Blood - Venous Blood Culture - Final Staphylococcus aureus 02/26/24 15:00 Catheter Tip - Other Catheter Tip Culture - Final Staphylococcus aureus 02/25/24 22:25 Urine clean catch - Clean Catch Midstream Urine Culture - Final Enterococcus faecalis 02/24/24 22:05 Blood - Venous Blood Culture - Final Staphylococcus aureus 02/24/24 22:04 Blood - Venous Blood Culture - Final Staphylococcus aureus Procedures Date of Service Date of Service: 02/28/24 Assessment & Plan Assessment and plan (1) Acute respiratory failure with hypoxia: Status: Acute (2) CHF (congestive heart failure): Status: Acute (3) Hypertensive emergency: Status: Acute Plan This is a 33-year-old female with pertinent history of ESRD on hemodialysis, 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 Blood cult MSSA so Pcath removed and unfortunately Bld cult persistently pos--so temp HD cath placed ( 02/27/23) SOB: improved HyperK: controlled w HD DM Anemia Hemoaccess: now with temp line ( 02/27/23) and will need Pcath once bacteremia clears ( ? next Sunday if Bld cult -'ve x 48rhs) Non-compliance H/O Severe HTN: multifact REC: HD today and again Sat, repeat bld cult; abx as ntoed; meds as noted; card echo for ques endocarditis; cont ABx as per ID Time Spent With Patient Time: Total time managing care of this patient today ____ minutes. Progress Note: Quality Stroke Does the patient have a stroke diagnosis?: No
[2024-02-28 20:53] LABS: Glucose, Whole Blood 176 mg/dL (60-115)
[2024-02-29] VITALS (7 sets, daily range): BP systolic 127–189; BP diastolic 72–97; PULSE 81–96; RESP 16–19; TEMP 36–36.8; O2SAT 95–100
[2024-02-29] MEDS: HYDROmorphone HCl 0.5 MG/0.5 ML SYRINGE IVPUSH ×5 (03:57→23:30)
[2024-02-29] MEDS: diphenhydrAMINE HCL 50 MG/ML VIAL 12.5 MG IVPUSH ×3 (03:58→18:37)
[2024-02-29 06:58] LABS: Glucose, Whole Blood 100 mg/dL (60-115)
--- NOTE | 2024-02-29 07:00 | CA_ITS ---
Transthoracic Echocardiogram Patient (Last, First, Middle): Shereen Taylor, Gender: Female Date of : 1990 Age: 33 Procedure Date: 02/29/2024 Procedure Type: Transthoracic Echocardiogram Location: [facility] [place] Height: 165.1 cm Weight: 81.19 kg BSA: 1.89 m2 Heart Rate: bpm BP: 153 / 87 mmHg Microfilm Operator: TO Referring MD: Efraín Weeks MD Association Executive: Micky Cotton MD Symptoms: persistent bacteremia, to eval for endocarditis Study Quality: Fair ECG Rhythm: Sinus Conclusions: - 1. Moderate to large pericardial effusion near the left ventricle without clear tamponade but dilated IVC 2. Kihs-[id number] LV systolic dysfunction with LVEF of 40-45% with moderate LVH with pseudonormal filling pattern 3. Mildly to moderately reduced RV systolic function 4. Moderate biatrial enlargement 5. Mild mitral and [id number] tricuspid regurgitation noted 6. Moderately elevated right ventricular systolic pressure with significantly elevated right atrial pressures Findings Procedure Information The study quality is limited by the patients inability to tolerate the test. Left Ventricle Normal left ventricular cavity size. There is moderately increased left ventricular wall thickness. The left ventricular systolic function is mild to moderately decreased. The visually estimated ejection fraction is between 40-45%. Spectral Doppler is indicative of a pseudonormal filling pattern. E/E prime ratio is between 8 and 15 consistent with indeterminate filling pressures. Right Ventricle Normal right ventricular cavity size. There is mild to moderately decreased right ventricular systolic function. Atria The left atrium is moderately dilated. There is no evidence of interatrial shunt. The right atrium is moderately dilated. Aortic Valve Normal aortic valve structure and function. There is no aortic valve stenosis. There is no aortic valve regurgitation. Mitral Valve Normal mitral valve structure and function. There is mild mitral valve regurgitation. There is no mitral valve stenosis. Pulmonic Valve The pulmonic valve is normal. There is mild pulmonic valve regurgitation. Tricuspid Valve Normal tricuspid valve structure. There is moderate tricuspid valve regurgitation. Significantly elevated right atrial pressure. Moderate pulmonary hypertension is present. Great Vessels All visible segments of the aorta are normal in size. The pulmonary artery was not well visualized. There is no dilatation of the ascending aorta measuring 3.20 cm. Venous The inferior vena cava is moderately dilated and does not collapse with inspiration. Pericardium/Pleural Moderate circumferential with large effusion more near the left ventricle noted. IVC is plethoric although no other clear evidence of tamponade is noted. Clinical correlation suggested Prior Study Comparison Changes noted compared to prior study dated: 11/13/2023. pericardial effusion is not moderate to large. RV systolic pressures increased Measurements 2D Linear Measurements IVSd: 1.47 0.6-0.9/0.6-1.0 cm LVIDd: 4.85 3.9-5.3/4.2-5.9 cm LVIDd Index: 2.57 2.4-3.2/2.2-3.1 cm/m2 LVIDs: 3.60 2.0-3.6 cm LVPWd: 1.50 0.7-1.1 cm LA Diam: 4.70 2.7-3.8/3.0-4.0 cm LAIDs Index: 2.49 1.5-2.3 cm/m2 LV Mass: 378.69 67-162/88-224 g LV Mass Index: 200.37 43-95/49-115 g/m2 LVOT Diam: 2.20 3.0+(-)1.3 cm 2D Systolic Function EF 4C: 44.10 >55% EF 2C: 43.50 >55% EF BiP: 41.90 >55% Mitral Valve MV Pk E: 0.83 MV PK A: 0.53 MV Decel Time: 163.00 E/A: 1.60 E'Lateral: 7.07 E'Medial: 4.68 E/E' Med: 17.80 E/E' Lat: 11.80 PHT: 48.00 MVA PHT: 4.58 Decel Pinal: 5.11 Aortic Valve AoV Pk Pietro: 1.51 AoV Mn Pietro: 0.99 AoV VTI: 0.26 AoV Pk Grad: 9.00 Aov Mn Grad: 5.00 ANDREA Cont.VTI: 2.36 LVOT LVOT Pk Pietro: 0.93 LVOT Mn Pietro: 0.54 LVOT VTI: 0.16 LVOT Pk Grad: 3.00 LVOT Mn Grad: 1.00 LVOT Diam: 2.20 LVOT Area: 3.80 Diastolic Function MV Pk E: 0.83 MV Pk A: 0.53 E/A: 1.60 E'Medial: 4.68 E/E' Med: 17.80 E' Laterial: 7.07 E/E' Lat: 11.80 Right Ventricle TAPSE (mm): 15.10 TVS' Pietro: 8.16 Tricuspid Valve TR Pk Pietro: 3.17 TR Pk Grad: 40.00 RA Press: 15.00 RVSP: 55.00 Great Vessels Aorta Sinus of Valsalva: 3.01 2.0-3.5 cm Ao Asc: 3.20 2.1-3.4 cm Updated in Other Vendor System with Status of Final Micky Cotton MD electronically signed on 02/29/2024 2:33:07 PM with status of Final
[2024-02-29 07:36] LABS: Glucose, Whole Blood 99 mg/dL (60-115)
--- NOTE | 2024-02-29 09:24 | P.PNIM_ITS ---
Subjective Subjective Date of Service: 02/29/24 Interval History: seen and examined no new complaints Review of Systems Negative except HPI/interval history. Physical Exam 2 Vital Signs: Vital Signs: Last Vital Signs Temp 97.4 F 02/29/24 08:00 Pulse 83 02/29/24 08:00 Resp 18 02/29/24 08:00 BP 154/82 H 02/29/24 08:00 Pulse Ox 99 02/29/24 08:00 O2 Del Method Room Air 02/29/24 08:00 O2 Flow Rate 3 02/29/24 04:00 Oxygen Flow Rate 6 02/24/24 21:15 BMI result Body Mass Index 29.9 Const: Other: General - no acute distress, appears nauseous, appears chronically ill, blind HEENT - L dialysis cath in place Cardiovascular - regular rate and rhythm, S1-S2 Lungs - normal respiratory effort, clear to auscultation bilaterally, no wheezing Abdomen - soft, nontender, no rebound or guarding Extremities - bilateral TMA Neuro - awake and alert, no focal deficits Objective Data Active Medications Acetaminophen (Acetaminophen 325 Mg Tablet) 650 mg PO Q6H PRN PRN Reason: Pain, Mild 1-3,fever,headache Calcium Carbonate (Calcium Carbonate 750 Mg Tab.Chew) 750 mg PO Q4H PRN PRN Reason: Heartburn Carvedilol (Carvedilol 6.25 Mg Tablet) 6.25 mg PO BID [facility]; Protocol Diphenhydramine HCl (Diphenhydramine Hcl 50 Mg/Ml Vial) 12.5 mg IVPUSH Q6H PRN PRN Reason: Itching Last Admin: 02/29/24 03:58 Dose: 12.5 mg Documented By: KANDI Glucose (Glucose Gel 15 Gm Gel..Gram.) 15 gm PO Q15M PRN; Protocol PRN Reason: per Hypoglycemia Standing Ord. Heparin Sodium (Porcine) (Heparin Sodium,Porcine 5,000 Unit/Ml Vial) 5,000 unit SUBCUT Q12H [facility] Last Admin: 02/29/24 00:16 Dose: Not Given Documented By: KANDI Non-Admin Reason: Patient Refused Hydromorphone HCl (Hydromorphone Hcl 0.5 Mg/0.5 Ml Syringe) 0.5 mg IVPUSH Q4H PRN; Protocol PRN Reason: Pain, Severe (Pain Scale 7-10) Last Admin: 02/29/24 03:57 Dose: 0.5 mg Documented By: KANDI Dextrose (D10) 250 mls @ 750 mls/hr IV Q15M PRN; Protocol PRN Reason: per Hypoglycemia Standing Ord. Insulin Human Lispro (Insulin Lispro 100 Unit/Ml 3 Ml Vial) [facility] Protocol Last Admin: 02/29/24 07:42 Dose: Not Given Documented By: ARPIT Non-Admin Reason: No Insulin Coverage Magnesium Hydroxide (Milk Of Magnesia 30 Ml Oral.Susp) 30 ml PO DAILY PRN PRN Reason: Constipation Melatonin (Melatonin 3 Mg Tablet) 6 mg PO BEDTIME PRN PRN Reason: Insomnia Metoclopramide HCl (Metoclopramide Hcl 10 Mg/2 Ml Vial) 5 mg IVPUSH Q6H PRN PRN Reason: Nausea and Vomiting Last Admin: 02/27/24 17:14 Dose: 5 mg Documented By: BJ Ondansetron HCl (Ondansetron Hcl 4 Mg/2 Ml Vial) 4 mg IVPUSH Q8H PRN PRN Reason: Nausea and Vomiting Last Admin: 02/28/24 21:07 Dose: 4 mg Documented By: KANDI Sodium Chloride (0.9 % Sodium Chloride Flush 3 Ml Syringe) [facility] Last Admin: 02/28/24 21:09 Dose: 3 ml Documented By: KANDI Tamsulosin HCl (Tamsulosin Hcl 0.4 Mg Capsule) 0.4 mg PO BEDTIME [facility] Last Admin: 02/26/24 21:45 Dose: 0.4 mg Documented By: CHRISTOPHER Labs 02/26/24 06:12 02/27/24 18:19 Labs: Laboratory Results - last 24 hr 02/28/24 02/28/24 02/28/24 12:13 16:32 20:45 POC Glucose 102 100 176 H 02/29/24 07:15 POC Glucose 99 Microbiology Microbiology Results: Microbiology 02/26/24 16:29 Blood Culture - Final Blood - Venous Staphylococcus aureus 02/26/24 16:29 Blood Culture - Final Blood - Venous Staphylococcus aureus 02/26/24 15:00 Catheter Tip Culture - Final Catheter Tip - Other Staphylococcus aureus 02/25/24 22:25 Urine Culture - Final Urine clean catch - Clean Catch Midstream Enterococcus faecalis Assessment and Plan (1) Acute respiratory failure with hypoxia: Status: Acute Plan 33-year-old with multiple medical problems who is noncompliant with treatment and presenting with shortness of breath. Found to be in fluid overload due to missed dialysis. Hospital course further complicated by Gram-positive bacteremia. MSSA bacteremia IV Kefzol 2 g after dialysis; will give 1g today dialysis catheter removal 02/25, culture sent - positive for MSSA; temp cath placed 02/27 survellience cx today echo ordered nephrology on board Acute on chronic respiratory failure with hypoxia Due to underlying congestive heart failure as well as ESRD and noncompliance with scheduled dialysis sessions dialysis on 02/24, 02/25 Respiratory failure has improved to her baseline, continue 3 L Enterococcus +urine C&S d/w ID -- no need to Rx given no symptoms. ESRD on HD Dialysis per Nephrology Chronic pain and opiate dependence Acutely worsened, on IV Dilaudid, taper as tolerated DM 2 Continue sliding scale and point of cares CAD/cardiomyopathy Continue baseline meds Hypertension had hypotensive episodes and BP meds on hold x 2 days will restart coreg at 1/2 home dose and hold others thrombocytopenia chronically low, will check labs - pt refusing Full code DVT prophylaxis heparin (pt refusing despite education) Quality Stroke Does the patient have a stroke diagnosis?: No VTE Prior VTE?: No VTE Risk Level:: Medical - moderate - high VTE Device Contraindication: Treatment Not Indicated VTE Drug Contraindication: N/A - Med Ordered
[2024-02-29] MEDS: Metoclopramide HCl 10 MG/2 ML VIAL 5 MG IVPUSH ×2 (09:36→18:37)
[2024-02-29] MEDS: carvediloL 6.25 MG TABLET PO ×2 (09:36→21:37)
[2024-02-29] MEDS: 0.9 % Sodium Chloride Flush 3 ML SYRINGE IVFLUSH ×2 (09:40→23:36)
[2024-02-29] MEDS: Tamsulosin HCL 0.4 MG CAPSULE PO (10:22)
[2024-02-29] MEDS: ceFAZolin Sodium 1 GM VIAL IVPUSH (10:23)
[2024-02-29 11:10] LABS: Hematocrit 27.5 % (37.0-47.0); Hemoglobin 8.9 g/dl (12.0-16.0); Mean Corpuscular HGB Conc 32.4 g/dl (31.0-35.0); Mean Corpuscular Hemoglobin 29.6 pg (27.0-33.0); Mean Corpuscular Volume 91.4 fL (80.0-98.0); Mean Platelet Volume 12.6 fL (9.4-12.3); Platelet Count 143 X10*3/uL (160-400); Red Blood Count 3.01 X10*6/uL (4.20-5.50); Red Cell Distribution Width 15.6 % (11.0-16.0); White Blood Count 4.8 X10*3/uL (4.8-10.8)
--- NOTE | 2024-02-29 11:10 | HO.WOUND ---
Wound Consult: Initial 33yr old female? admitted to [facility] [place] [facility] on 02/25/24 - See progress notes and H&P for detailed history.? 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 Wound consult follow up for Bilateral lower foot wounds.? Todays assessment is detailed below. ?? Left Heel? - Diabetic Wound - adherent yellow slough - No odor noted no induration no erythema and no fluctance noted at this time? -?New superior wound noted - resolving dry scabbed wound bed. Recommend Iodosrob for 1 week and then switch to Alginate packing and change every other day. - Iodosorb / Iodoflex to keep dry and stable and allow for antimicrobial properties and break through biofilm.?The patient continues to express localized pain to left heel. Left Plantar Diabetic Wound? - dry callused resurfaced - appears intact. No fluctuance no induration no warmth noted. Pad with dry gauze when dressing. ? Right Plantar Diabetic Wound? -dry resurfaced wound bed - dry black dark epidermal layer noted. Overall appear resurfaced. no induration no fluctance no odor noted. [place] with Betadine to continue to dry out and keep stable. Daily application. Right Lateral Diabetic Wound? -? Diabetic Wound? - Resurfaced intact tissue Right Dorsal Diabetic Wound? - Dry Stable Scab in place - previously resurfaced intact tissue - Recommend [place] with Betadine daily to keep dry and stable. No induraiton no fluctance and no warmth noted. Left TMA site - resurfaced healed? - no topical interventions needed at this time. Recommendations: 1. Turn and Reposition every 2 hours and as needed for patient comfort.? Use pillows or wedges to support off loading positions. 2. Off Load all bony prominences with use of pillows and heel boots if needed.? Apply Preventative foams where needed. ? 3. Monitor for incontinence and moisture control, use barrier creams when needed for prevention and treatment. 4. Provide adequate and supplemental nutrition.? 5. Order low air loss mattress. 6. When applicable maintain blood glucose levels per Providers order. 7. Left Heel - Elevate heels off of bed surface with pillows.?Cleanse with saline, pat dry. ?Apply Iodosorb / Iodoflex to wound bed cover with gauze, wrap and tape. ?Change every other day.?? Izaiah wrap applied to limit dressing unraveling over the course of 48hrs. Iodoflex pad left at bedside. Note the Iodoflex will be applied brown and over the course of time as the Iodine is absorbed into the wound bed the color will change to yellow / cream signifying time to replace.??Iodoflex / Iodosorb is only available from wound care nurse. 8. Right Plantar, dorsal Foot and Left Plantar - [place] with Betadine keep dry and stable. Do not cover with foam dressings. Re-consult wound care Nurse for wound deterioration or wound changes.
--- NOTE | 2024-02-29 11:29 | MHC.CM.PN ---
per rounds, pt is not ready for DC, she is here for SOB, fliud overload and gram positive bacteremia. CM to follow for DC needs.
[2024-02-29 11:37] LABS: Alanine Aminotransferase < 6 U/L (0-31); Albumin Level 2.9 g/dL (3.5-5.0); Alkaline Phosphatase 186 U/L (39-117); Anion Gap 13 (12-20); Aspartate Amino Transferase 40 U/L (5-31); Bilirubin Total 0.9 mg/dL (0.0-1.0); Blood Urea Nitrogen 42 mg/dL (9-16); Calcium 7.2 mg/dL (8.4-10.2); Carbon Dioxide 23 mmol/L (22-29); Chloride 99 mmol/L (96-108); Creatinine Clr Calc Pharmacy 16.6; Estimated Glomerular Filt Rate 10; Glucose Random 120 mg/dL (60-115); Sodium 131 mmol/L (135-145); Total Protein 6.6 g/dL (6.5-8.0)
[2024-02-29 16:41] LABS: Glucose, Whole Blood 111 mg/dL (60-115)
[2024-02-29 20:52] LABS: Glucose, Whole Blood 123 mg/dL (60-115)
[2024-02-29] MEDS: ondansetron HCL 4 MG/2 ML VIAL IVPUSH (23:35)
[2024-03-01] MEDS: diphenhydrAMINE HCL 50 MG/ML VIAL 12.5 MG IVPUSH ×3 (00:37→17:55)
[2024-03-01 04:26] VITALS: O2SAT 93
[2024-03-01] MEDS: HYDROmorphone HCl 0.5 MG/0.5 ML SYRINGE IVPUSH ×5 (04:51→22:06)
[2024-03-01] MEDS: Metoclopramide HCl 10 MG/2 ML VIAL 5 MG IVPUSH ×2 (04:52→22:06)
[2024-03-01 05:00] VITALS: BP 168/91; PULSE 83; RESP 20; TEMP 36.2; O2SAT 98
[2024-03-01 07:53] VITALS: BP 161/88; PULSE 83; RESP 20; TEMP 36.4; O2SAT 95
[2024-03-01 08:12] LABS: Glucose, Whole Blood 78 mg/dL (60-115)
[2024-03-01 08:57] VITALS: RESP 18
[2024-03-01] MEDS: 0.9 % Sodium Chloride Flush 3 ML SYRINGE IVFLUSH ×2 (08:58→22:10)
[2024-03-01] MEDS: Tamsulosin HCL 0.4 MG CAPSULE PO (08:58)
[2024-03-01] MEDS: ondansetron HCL 4 MG/2 ML VIAL IVPUSH ×2 (09:10→17:55)
--- NOTE | 2024-03-01 09:50 | HO.PM.IMPN ---
Subjective Subjective Date of Service: 03/01/24 Interval History: seen and examined no new complaints Review of Systems Negative except HPI/interval history. Physical Exam Vital Signs: Vital Signs: Last Vital Signs Temp 97.6 F 03/01/24 07:53 Pulse 83 03/01/24 07:53 Resp 18 03/01/24 08:57 BP 161/88 H 03/01/24 07:53 Pulse Ox 95 03/01/24 07:53 O2 Del Method Room Air 03/01/24 07:53 O2 Flow Rate 3 02/29/24 04:00 Oxygen Flow Rate 6 02/24/24 21:15 BMI result Body Mass Index 29.9 Appearing in no acute distress, blind lung sounds are clear to auscultation heart regular rate rhythm, clear S1, S2 positive bowel sounds, abdomen is soft, nontender neuro patient is alert x3, no focal deficits left neck temp cath for dialysis Objective Data Active Medications Acetaminophen (Acetaminophen 325 Mg Tablet) 650 mg PO Q6H PRN PRN Reason: Pain, Mild 1-3,fever,headache Calcium Carbonate (Calcium Carbonate 750 Mg Tab.Chew) 750 mg PO Q4H PRN PRN Reason: Heartburn Carvedilol (Carvedilol 6.25 Mg Tablet) 6.25 mg PO BID [facility]; Protocol Last Admin: 03/01/24 09:23 Dose: Not Given Documented By: YOLIS Non-Admin Reason: pt going to dialysis Diphenhydramine HCl (Diphenhydramine Hcl 50 Mg/Ml Vial) 12.5 mg IVPUSH Q6H PRN PRN Reason: Itching Last Admin: 03/01/24 09:10 Dose: 12.5 mg Documented By: YOLIS Glucose (Glucose Gel 15 Gm Gel..Gram.) 15 gm PO Q15M PRN; Protocol PRN Reason: per Hypoglycemia Standing Ord. Heparin Sodium (Porcine) (Heparin Sodium,Porcine 5,000 Unit/Ml Vial) 5,000 unit SUBCUT Q12H [facility] Last Admin: 03/01/24 00:38 Dose: Not Given Documented By: SILVESTRE Non-Admin Reason: Patient Refused Hydromorphone HCl (Hydromorphone Hcl 0.5 Mg/0.5 Ml Syringe) 0.5 mg IVPUSH Q4H PRN; Protocol PRN Reason: Pain, Severe (Pain Scale 7-10) Last Admin: 03/01/24 08:57 Dose: 0.5 mg Documented By: YOLIS Dextrose (D10) 250 mls @ 750 mls/hr IV Q15M PRN; Protocol PRN Reason: per Hypoglycemia Standing Ord. Cefazolin Sodium/Dextrose (Ancef) 2 gm in 50 mls @ 100 mls/hr IV TuThSa@1800 [facility] Insulin Human Lispro (Insulin Lispro 100 Unit/Ml 3 Ml Vial) 0 unit SUBCUT QIDACHS [facility]; Protocol Last Admin: 03/01/24 07:57 Dose: Not Given Documented By: YOLIS Non-Admin Reason: No Insulin Coverage Magnesium Hydroxide (Milk Of Magnesia 30 Ml Oral.Susp) 30 ml PO DAILY PRN PRN Reason: Constipation Melatonin (Melatonin 3 Mg Tablet) 6 mg PO BEDTIME PRN PRN Reason: Insomnia Metoclopramide HCl (Metoclopramide Hcl 10 Mg/2 Ml Vial) 5 mg IVPUSH Q6H PRN PRN Reason: Nausea and Vomiting Last Admin: 03/01/24 04:52 Dose: 5 mg Documented By: SILVESTRE Ondansetron HCl (Ondansetron Hcl 4 Mg/2 Ml Vial) 4 mg IVPUSH Q8H PRN PRN Reason: Nausea and Vomiting Last Admin: 03/01/24 09:10 Dose: 4 mg Documented By: YOLIS Sodium Chloride (0.9 % Sodium Chloride Flush 3 Ml Syringe) [facility] Last Admin: 03/01/24 08:58 Dose: 3 ml Documented By: YOLIS Tamsulosin HCl (Tamsulosin Hcl 0.4 Mg Capsule) 0.4 mg PO DAILY [facility] Last Admin: 03/01/24 08:58 Dose: 0.4 mg Documented By: YOLIS Labs 02/29/24 10:28 02/29/24 10:28 Labs: Laboratory Results - last 24 hr 02/29/24 02/29/24 02/29/24 10:28 11:01 16:36 MCV 91.4 MCH 29.6 MCHC 32.4 RDW 15.6 Plt Count 143 L D MPV 12.6 H Absolute Nucleated RBC 0.000 Nucleated RBC % (auto) 0.0 Anion Gap 13 Estim Creat Clear Calc 16.6 Estimated GFR 10 POC Glucose 123 H 111 Random Glucose 120 H Calcium 7.2 L Total Bilirubin 0.9 AST 40 H ALT < 6 Alkaline Phosphatase 186 H Total Protein 6.6 Albumin 2.9 L 03/01/24 07:52 MCV MCH MCHC RDW Plt Count MPV Absolute Nucleated RBC Nucleated RBC % (auto) Anion Gap Estim Creat Clear Calc Estimated GFR POC Glucose 78 Random Glucose Calcium Total Bilirubin AST ALT Alkaline Phosphatase Total Protein Albumin Assessment and Plan (1) Acute respiratory failure with hypoxia: Status: Acute Plan 33-year-old with multiple medical problems who is noncompliant with treatment and presenting with shortness of breath. Found to be in fluid overload due to missed dialysis. Hospital course further complicated by Gram-positive bacteremia. MSSA bacteremia IV Kefzol 2 g after dialysis dialysis catheter removal 02/25, culture sent> positive for MSSA; temp cath placed / survellience cx pending echo w/o vegetation nephrology following Urinary retention place edwards catheter continue tamsulosin consult urology Acute on chronic respiratory failure with hypoxia. Resolved Due to underlying congestive heart failure as well as ESRD and noncompliance with scheduled dialysis sessions Respiratory failure has improved to her baseline Enterococcus +urine C&S d/w ID -- no need to Rx given no symptoms. ESRD on HD Dialysis per Nephrology Chronic pain and opiate dependence IV Dilaudid, taper as tolerated DM 2 Continue sliding scale and point of cares CAD/cardiomyopathy Continue baseline meds Hypertension with hypotension. Resolved meds on hold x 2 days coreg at 1/2 home dose and hold others thrombocytopenia chronically low Full code DVT prophylaxis heparin (pt refusing despite education) Quality Stroke Does the patient have a stroke diagnosis?: No VTE Prior VTE?: No VTE Risk Level:: Medical - moderate - high VTE Device Contraindication: Treatment Not Indicated VTE Drug Contraindication: N/A - Med Ordered
--- NOTE | 2024-03-01 11:13 | PM.UROCN ---
History of Present Illness Consult details Consult date: 03/01/24 Narrative: CC: Urinary retention in setting of end-stage renal disease and progressive diabetes with polyneuropathy 33-year-old female Hemodialysis dependent, poorly controlled diabetic admitted with chronic hypoxic respiratory failure. Baseline 4 L supplemental oxygen. Congestive heart failure with reduced EF. Mood disorder and chronic pain with opioid dependence. Had missed dialysis Admitted to hospital for fluid overload Found to have Gram-positive blood cultures. Dialysis catheter exchanged. Also found to have incomplete bladder emptying with residuals as high as 400 cc. Gram-negative urinary tract infection. Enterococcus faecalis. Most recent blood sugars show HbA1c 5.1 Has undergone straight catheterization Recommend starting tamsulosin and bethanechol Bladder scan Q 8 hours Straight cath residual higher than 300 cc Patient may need to be toward clean intermittent catheterization in order to catheterize on their own. Hesitant to use Carrero catheter placement. Review of Systems Constitutional: Constitutional: Reports as per HPI and Reports no additional constitutional complaints Cardiovascular: Cardiovascular: Reports as per HPI and Reports no additional cardiovascular complaints Respiratory: Respiratory: Reports as per HPI and Reports no additional respiratory complaints Gastrointestinal: Gastrointestinal: Reports as per HPI and Reports no additional gastrointestinal complaints Genitourinary: Genitourinary: Reports as per HPI Musculoskeletal: Musculoskeletal: Reports no additional musculoskeletal complaints and Reports as per HPI Neurologic: Reports system reviewed and no additional complaints, except as documented and Reports as per HPI [facility] Past Medical History Medical History Hypertensive emergency Non-compliance with renal dialysis Decompensated heart failure Congestive heart failure Renal failure Hypertension, uncontrolled Medical non-compliance Pericarditis Unspecified hypertension, condition or complication Metabolic acidosis Gastroparesis End stage chronic kidney disease Chronic kidney disease Anemia Chronic foot ulcer Plantar ulcer of left foot Major depressive disorder, single episode, severe ESRD (end stage renal disease) Non-compliance with renal dialysis Hypertensive urgency MDD (major depressive disorder), recurrent episode MDD (major depressive disorder) Renal failure Foot ulcer CKD (chronic kidney disease) Hypertension Diabetic foot Hyperkalemia Vomiting Renal failure Hypertension Migraine Chronic pain ESRD on dialysis Non-compliance with renal dialysis Hypertension End-stage renal disease (ESRD) Diabetic foot ulcer associated with type 2 diabetes mellitus Diabetes ESRD needing dialysis Cardiomyopathy HFrEF (heart failure with reduced ejection fraction) delivery delivered Anemia in chronic kidney disease (CKD) CKD (chronic kidney disease) Headache, migraine Abnormal finding on echocardiogram Elevated troponin Chest pain Acute worsening of stage 3 chronic kidney disease Generalized edema Sepsis Cellulitis Pleural effusion CHF (congestive heart failure) (~06/07/22) Tachycardia Atypical chest pain Bone infection PAD (peripheral artery disease) Severe anemia Cellulitis and abscess of foot DM foot ulcer Osteomyelitis Asthma Depression with anxiety Diabetic retinopathy Type 2 diabetes mellitus with hyperglycemia, with long-term current use of insulin Blind right eye Diabetes Back pain Family History Family History Mother Coronary artery disease Myocardial infarction Stroke Diabetes mellitus Father Myocardial infarction Family history: reviewed and not pertinent Surgical History Surgical History Tubal ligation status Previous section Hx laparoscopic cholecystectomy Hx of surgical procedure (~09/11/23) 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 Social History Social History Household Members: Family Household Members Other:: Sister Housing: House Are you a primary acute care nursing assistant to a significant other at home: No Do you presently have visiting nurse or other home services: No Unable to assess alcohol history related to: Unknown Alcohol intake: never Comment: Remain w/ pt on commode. Patient Tobacco Use Status: Never used Tobacco Smoked in Last 30 Days: No e-Cigarette/Vaping Use: Never Used Patient Interested in Nicotine Replacement: No Patient Given Instructions on How to Stop Smoking: No Second Hand Smoke Exposure: No Use of substances other than those prescribed or required for medical reasons: Unknown Currently Displaying Signs/Symptoms of Drug Intoxication Withdrawal: No Any prior treatment program specific to substance use: No Have you been hit, kicked, punched, or otherwise hurt by someone within the past year? If so, by whom?: No Do you feel safe in your current relationship?: No Current Relationship Is there a partner from a previous relationship who is making you feel unsafe now?: No Are you made to feel afraid or neglected: No Advance Directives: Yes Advance Directives Information Provided: No Advance Directives on File: Yes Advance Directives Date on File: 08/28/23 Do you have a plan to hurt others: No Plan Recently lost weight without trying: No Eating poorly because of decreased appetite: No Nutrition Risks: No Nutritional Risk Patient : No : No Poor oral hygiene: No service: No Current occupational status: unemployed and disabled Gender identity: Female Meds Allergies Allergy/AdvReac Type Severity Reaction Status Date / Time morphine [MORPHINE] Allergy Intermediate Itching Verified 02/24/24 21:34 azithromycin [From Zithromax] Allergy Hives Verified 02/24/24 21:34 gabapentin Allergy Facial Verified 02/24/24 21:34 Swelling tramadol Allergy Facial Verified 02/24/24 21:34 Swelling vancomycin Allergy Anaphylaxis Verified 02/24/24 21:34 Active Medications: Current Medications Acetaminophen (Acetaminophen 325 Mg Tablet) 650 mg PO Q6H PRN PRN Reason: Pain, Mild 1-3,fever,headache Calcium Carbonate (Calcium Carbonate 750 Mg Tab.Chew) 750 mg PO Q4H PRN PRN Reason: Heartburn Carvedilol (Carvedilol 6.25 Mg Tablet) 6.25 mg PO BID [facility]; Protocol Last Admin: 03/01/24 09:23 Dose: Not Given Diphenhydramine HCl (Diphenhydramine Hcl 50 Mg/Ml Vial) 12.5 mg IVPUSH Q6H PRN PRN Reason: Itching Last Admin: 03/01/24 09:10 Dose: 12.5 mg Glucose (Glucose Gel 15 Gm Gel..Gram.) 15 gm PO Q15M PRN; Protocol PRN Reason: per Hypoglycemia Standing Ord. Heparin Sodium (Porcine) (Heparin Sodium,Porcine 5,000 Unit/Ml Vial) 5,000 unit SUBCUT Q12H [facility] Last Admin: 03/01/24 00:38 Dose: Not Given Hydromorphone HCl (Hydromorphone Hcl 0.5 Mg/0.5 Ml Syringe) 0.5 mg IVPUSH Q4H PRN; Protocol PRN Reason: Pain, Severe (Pain Scale 7-10) Last Admin: 03/01/24 08:57 Dose: 0.5 mg Dextrose (D10) 250 mls @ 750 mls/hr IV Q15M PRN; Protocol PRN Reason: per Hypoglycemia Standing Ord. Cefazolin Sodium/Dextrose (Ancef) 2 gm in 50 mls @ 100 mls/hr IV TuThSa@1800 [facility] Insulin Human Lispro (Insulin Lispro 100 Unit/Ml 3 Ml Vial) 0 unit SUBCUT QIDACHS [facility]; Protocol Last Admin: 03/01/24 10:50 Dose: Not Given Magnesium Hydroxide (Milk Of Magnesia 30 Ml Oral.Susp) 30 ml PO DAILY PRN PRN Reason: Constipation Melatonin (Melatonin 3 Mg Tablet) 6 mg PO BEDTIME PRN PRN Reason: Insomnia Metoclopramide HCl (Metoclopramide Hcl 10 Mg/2 Ml Vial) 5 mg IVPUSH Q6H PRN PRN Reason: Nausea and Vomiting Last Admin: 03/01/24 04:52 Dose: 5 mg Ondansetron HCl (Ondansetron Hcl 4 Mg/2 Ml Vial) 4 mg IVPUSH Q8H PRN PRN Reason: Nausea and Vomiting Last Admin: 03/01/24 09:10 Dose: 4 mg Sodium Chloride (0.9 % Sodium Chloride Flush 3 Ml Syringe) 3 ml IVFLUSH QSHIFT [facility] Last Admin: 03/01/24 08:58 Dose: 3 ml Tamsulosin HCl (Tamsulosin Hcl 0.4 Mg Capsule) 0.4 mg PO DAILY [facility] Last Admin: 03/01/24 08:58 Dose: 0.4 mg Home Medications ?Medication ?Instructions ?Recorded ?Confirmed ?Last Taken ?Type albuterol sulfate 90 mcg/actuation 2 puff inhalation Q6H PRN wheezing 01/15/24 02/25/24 Unknown History aerosol inhaler (Ventolin HFA) lidocaine 5 % topical patch 1 patch topical DAILY 01/15/24 02/25/24 02/24/24 History nitroglycerin 0.4 mg sublingual 0.4 mg sublingual DIRECTED PRN 01/15/24 02/25/24 Unknown History tablet Angina Physical Exam Vital Signs: Vital Signs: Last Vital Signs Temp 97.6 F 03/01/24 07:53 Pulse 83 03/01/24 07:53 Resp 18 03/01/24 08:57 BP 161/88 H 03/01/24 07:53 Pulse Ox 95 03/01/24 07:53 O2 Del Method Room Air 03/01/24 07:53 O2 Flow Rate 3 02/29/24 04:00 Oxygen Flow Rate 6 02/24/24 21:15 BMI result Body Mass Index 29.9 Const: General: cooperative, healthy appearing, comfortable and no acute distress Orientation/consciousness: patient oriented x3 HEENT: Face and sinus: Yes normal facial exam Mouth: moist mucous membranes Neck: Neck: Yes normal visual inspection, Yes full ROM and Yes trachea midline Chest: Chest palpation & inspection: normal inspection of the chest Resp: Effort & Inspection: normal respiratory effort, able to speak in complete sentences and no respiratory distress GI: Inspection: Yes normal to inspection Back/Spine/Pelvis: Cervical Spine: normal cervical lordosis Thoracic/Lumbar Spine: thoracic and lumbar spine normal to inspection Skin: General skin exam: no rashes or lesions noted Neuro: General: patient oriented x3, tone normal and moves all extremities Extrem: General: Yes normal to inspection and Yes capillary refill normal Results Labs 02/29/24 10:28 02/29/24 10:28 Labs: Abnormal lab results 02/29/24 02/29/24 Range/Units 10:28 11:01 Sodium 131 L (135-145) mmol/L BUN 42 H (9-16) mg/dL Creatinine 4.98 H* (0.5-1.4) mg/dL POC Glucose 123 H (60-115) mg/dL Random Glucose 120 H (60-115) mg/dL Calcium 7.2 L (8.4-10.2) mg/dL AST 40 H (5-31) U/L Alkaline Phosphatase 186 H (39-117) U/L Albumin 2.9 L (3.5-5.0) g/dL BMP 02/29/24 10:28 Sodium 131 L Potassium 4.0 Chloride 99 Carbon Dioxide 23 BUN 42 H Creatinine 4.98 H* Calcium 7.2 L Liver Function 02/29/24 Range/Units 10:28 Total Bilirubin 0.9 (0.0-1.0) mg/dL AST 40 H (5-31) U/L ALT < 6 (0-31) U/L Alkaline Phosphatase 186 H (39-117) U/L Albumin 2.9 L (3.5-5.0) g/dL Urine 02/25/24 Range/Units 22:00 Urine Color Yellow Urine Appearance Cloudy Urine pH 6.5 (5.0-9.0) Ur Specific Scott 1.015 (1.005-1.025) Urine Protein >=1000 (4+) H (Neg-Trace) mg/dL Urine Glucose (UA) Negative (Negative) mg/dL All other labs normal. Assessment and Plan (1) Diabetic polyneuropathy: Status: Acute (2) Hypotonic neurogenic bladder: Status: Acute Plan Trial combination tamsulosin plus bethanechol Check PVR q.8 hours Straight cath greater than 300 cc If persists for more than 48 hours initiate clean intermittent catheterization teaching with patient Procedures Date of Service Date of Service: 03/01/24
[2024-03-01 13:21] VITALS: BP 194/91; PULSE 91; RESP 20; TEMP 36.3; O2SAT 99
[2024-03-01 13:28] LABS: Glucose, Whole Blood 119 mg/dL (60-115)
[2024-03-01] MEDS: Bethanechol Chloride 25 MG TABLET 50 MG PO ×2 (13:35→22:05)
[2024-03-01] MEDS: carvediloL 6.25 MG TABLET PO ×2 (13:36→22:05)
[2024-03-01 16:51] LABS: Glucose, Whole Blood 131 mg/dL (60-115)
[2024-03-01] MEDS: ceFAZolin Sodium/Dextrose,Iso 2 GM/50 ML PIGGYBACK IV (17:55)
--- NOTE | 2024-03-01 18:06 | PC.NURSE ---
18 Fr edwards cath inserted at 1435 for retention. Upon insertion, 400 mL of concentrated yellow urine drained. patient tolerated well.
[2024-03-01 19:58] VITALS: BP 132/69; PULSE 83; RESP 18; TEMP 36.5; O2SAT 98
[2024-03-01 22:07] LABS: Glucose, Whole Blood 129 mg/dL (60-115)
[2024-03-02 03:39] VITALS: BP 134/70; PULSE 80; RESP 18; TEMP 36.1; O2SAT 98
[2024-03-02] MEDS: diphenhydrAMINE HCL 50 MG/ML VIAL 12.5 MG IVPUSH ×3 (03:51→20:52)
[2024-03-02 03:54] VITALS: RESP 18
[2024-03-02] MEDS: HYDROmorphone HCl 0.5 MG/0.5 ML SYRINGE IVPUSH ×3 (03:54→17:29)
[2024-03-02 07:15] VITALS: BP 147/83; PULSE 83; RESP 18; TEMP 36.2; O2SAT 96
[2024-03-02 07:20] LABS: Glucose, Whole Blood 82 mg/dL (60-115)
[2024-03-02] MEDS: carvediloL 6.25 MG TABLET PO (08:51)
[2024-03-02] MEDS: Bethanechol Chloride 25 MG TABLET 50 MG PO (08:51)
[2024-03-02] MEDS: ondansetron HCL 4 MG/2 ML VIAL IVPUSH (08:51)
[2024-03-02] MEDS: 0.9 % Sodium Chloride Flush 3 ML SYRINGE IVFLUSH ×2 (08:52→17:33)
[2024-03-02] MEDS: Tamsulosin HCL 0.4 MG CAPSULE PO (08:52)
--- NOTE | 2024-03-02 10:43 | P.PNIM_ITS ---
Subjective Subjective Date of Service: 03/02/24 Interval History: seen and examined no new complaints Review of Systems Negative except HPI/interval history. Physical Exam 2 Vital Signs: Vital Signs: Last Vital Signs Temp 97.1 F 03/02/24 07:15 Pulse 83 03/02/24 07:15 Resp 18 03/02/24 07:15 BP 147/83 H 03/02/24 07:15 Pulse Ox 96 03/02/24 07:15 O2 Del Method Room Air 03/02/24 07:15 O2 Flow Rate 3 02/29/24 04:00 Oxygen Flow Rate 6 02/24/24 21:15 BMI result Body Mass Index 29.9 Appearing in no acute distress lung sounds are clear to auscultation heart regular rate rhythm, clear S1, S2 positive bowel sounds, abdomen is soft, nontender neuro patient is alert x3, no focal deficits Objective Data Active Medications Acetaminophen (Acetaminophen 325 Mg Tablet) 650 mg PO Q6H PRN PRN Reason: Pain, Mild 1-3,fever,headache Bethanechol Chloride (Bethanechol Chloride 25 Mg Tablet) 50 mg PO BID [facility] Last Admin: 03/02/24 08:51 Dose: 50 mg Documented By: YOLIS Calcium Carbonate (Calcium Carbonate 750 Mg Tab.Chew) 750 mg PO Q4H PRN PRN Reason: Heartburn Carvedilol (Carvedilol 6.25 Mg Tablet) 6.25 mg PO BID [facility]; Protocol Last Admin: 03/02/24 08:51 Dose: 6.25 mg Documented By: YOLIS Diphenhydramine HCl (Diphenhydramine Hcl 50 Mg/Ml Vial) 12.5 mg IVPUSH Q6H PRN PRN Reason: Itching Last Admin: 03/02/24 03:51 Dose: 12.5 mg Documented By: LANA Glucose (Glucose Gel 15 Gm Gel..Gram.) 15 gm PO Q15M PRN; Protocol PRN Reason: per Hypoglycemia Standing Ord. Heparin Sodium (Porcine) (Heparin Sodium,Porcine 5,000 Unit/Ml Vial) 5,000 unit SUBCUT Q12H [facility] Last Admin: 03/02/24 01:10 Dose: Not Given Documented By: SILVESTRE Non-Admin Reason: Patient Refused Hydromorphone HCl (Hydromorphone Hcl 0.5 Mg/0.5 Ml Syringe) 0.5 mg IVPUSH Q8H PRN; Protocol PRN Reason: Pain, Severe (Pain Scale 7-10) Last Admin: 03/02/24 08:51 Dose: 0.5 mg Documented By: YOLIS Dextrose (D10) 250 mls @ 750 mls/hr IV Q15M PRN; Protocol PRN Reason: per Hypoglycemia Standing Ord. Cefazolin Sodium/Dextrose (Ancef) 2 gm in 50 mls @ 100 mls/hr IV TuThSa@1800 [facility] Last Infusion: 03/01/24 19:55 Dose: Infused Documented By: SILVESTRE Insulin Human Lispro (Insulin Lispro 100 Unit/Ml 3 Ml Vial) 0 unit SUBCUT QIDACHS [facility]; Protocol Last Admin: 03/02/24 07:21 Dose: Not Given Documented By: YOLIS Non-Admin Reason: No Insulin Coverage Magnesium Hydroxide (Milk Of Magnesia 30 Ml Oral.Susp) 30 ml PO DAILY PRN PRN Reason: Constipation Melatonin (Melatonin 3 Mg Tablet) 6 mg PO BEDTIME PRN PRN Reason: Insomnia Metoclopramide HCl (Metoclopramide Hcl 10 Mg/2 Ml Vial) 5 mg IVPUSH Q6H PRN PRN Reason: Nausea and Vomiting Last Admin: 03/01/24 22:06 Dose: 5 mg Documented By: SILVESTRE Ondansetron HCl (Ondansetron Hcl 4 Mg/2 Ml Vial) 4 mg IVPUSH Q8H PRN PRN Reason: Nausea and Vomiting Last Admin: 03/02/24 08:51 Dose: 4 mg Documented By: YOLIS Sodium Chloride (0.9 % Sodium Chloride Flush 3 Ml Syringe) 3 ml IVFLUSH [facility] Last Admin: 03/02/24 08:52 Dose: 3 ml Documented By: YOLIS Tamsulosin HCl (Tamsulosin Hcl 0.4 Mg Capsule) 0.4 mg PO DAILY [facility] Last Admin: 03/02/24 08:52 Dose: 0.4 mg Documented By: YOLIS Labs 02/29/24 10:28 02/29/24 10:28 Labs: Laboratory Results - last 24 hr 03/01/24 03/01/24 03/01/24 13:20 16:47 22:03 POC Glucose 119 H 131 H 129 H 03/02/24 07:14 POC Glucose 82 Microbiology Microbiology Results: Microbiology 02/29/24 10:34 Blood Culture - Preliminary Blood - Venous No growth after 24 hours. 02/29/24 10:28 Blood Culture - Preliminary Blood - Venous No growth after 24 hours. Assessment and Plan (1) Acute respiratory failure with hypoxia: Status: Acute Plan 33-year-old with multiple medical problems who is noncompliant with treatment and presenting with shortness of breath. Found to be in fluid overload due to missed dialysis. Hospital course further complicated by Gram-positive bacteremia. MSSA bacteremia IV Kefzol 2 g after dialysis dialysis catheter removal 02/25, culture sent> positive for MSSA; temp cath placed 1/2 survellience cx neg after 24 hrs echo w/o vegetation nephrology following permacath order placed Urinary retention edwards catheter placed continue tamsulosin consult urology Acute on chronic respiratory failure with hypoxia. Resolved Due to underlying congestive heart failure as well as ESRD and noncompliance with scheduled dialysis sessions Respiratory failure has improved to her baseline Enterococcus +urine C&S d/w ID -- no need to Rx given no symptoms. ESRD on HD Dialysis per Nephrology Chronic pain and opiate dependence IV Dilaudid, taper as tolerated DM 2 Continue sliding scale and point of cares CAD/cardiomyopathy Continue baseline meds Hypertension with hypotension. Resolved meds on hold x 2 days coreg at 1/2 home dose and hold others thrombocytopenia chronically low Full code DVT prophylaxis heparin (pt refusing despite education) Quality Stroke Does the patient have a stroke diagnosis?: No VTE Prior VTE?: No VTE Risk Level:: Medical - moderate - high VTE Device Contraindication: Treatment Not Indicated VTE Drug Contraindication: N/A - Med Ordered
[2024-03-02 11:19] LABS: Glucose, Whole Blood 131 mg/dL (60-115)
[2024-03-02 11:34] VITALS: BP 150/86; PULSE 85; RESP 18; TEMP 36.4; O2SAT 98
[2024-03-02] MEDS: Metoclopramide HCl 10 MG/2 ML VIAL 5 MG IVPUSH ×2 (13:00→20:47)
[2024-03-02 15:11] VITALS: BP 146/82; PULSE 84; RESP 18; TEMP 36.3; O2SAT 97
[2024-03-02 16:11] LABS: Glucose, Whole Blood 125 mg/dL (60-115)
[2024-03-02 20:00] VITALS: BP 137/84; PULSE 92; RESP 18; TEMP 36; O2SAT 96
[2024-03-03] VITALS (19 sets, daily range): BP systolic 156–189; BP diastolic 74–94; PULSE 60–93; RESP 14–20; TEMP 36–36.8; O2SAT 95–100
[2024-03-03] MEDS: HYDROmorphone HCl 0.5 MG/0.5 ML SYRINGE IVPUSH ×4 (02:15→21:08)
[2024-03-03] MEDS: ondansetron HCL 4 MG/2 ML VIAL IVPUSH ×2 (02:15→20:59)
[2024-03-03] MEDS: Labetalol HCL 100 MG/20 ML VIAL 20 MG IVPUSH ×2 (02:42→06:49)
[2024-03-03] MEDS: 0.9 % Sodium Chloride Flush 3 ML SYRINGE IVFLUSH ×4 (02:46→21:03)
[2024-03-03] MEDS: diphenhydrAMINE HCL 50 MG/ML VIAL 12.5 MG IVPUSH ×4 (03:00→21:01)
[2024-03-03 07:38] LABS: Glucose, Whole Blood 129 mg/dL (60-115)
[2024-03-03] MEDS: carvediloL 6.25 MG TABLET PO ×2 (08:19→21:00)
--- NOTE | 2024-03-03 08:43 | HO.THORCON_ITS ---
History of Present Illness Consult details Consult date: 03/03/24 Narrative: Patient is a 33-year-old female with a plethora of comorbidities and intercurrent medical problems. Workup including a recent cardiac echo demonstrated a moderately sized pericardial effusion demonstrating no evidence of hemodynamic compromise or tamponade. At present, patient has no hemodynamic complaints. She is no chest pain. No shortness of breath. Her vital signs were otherwise stable. She has recommenced hemodialysis. Chart was reviewed and patient evaluate PMFSH Past Medical History Medical History Hypertensive emergency Non-compliance with renal dialysis Decompensated heart failure Congestive heart failure Renal failure Hypertension, uncontrolled Medical non-compliance Pericarditis Unspecified hypertension, condition or complication Metabolic acidosis Gastroparesis End stage chronic kidney disease Chronic kidney disease Anemia Chronic foot ulcer Plantar ulcer of left foot Major depressive disorder, single episode, severe ESRD (end stage renal disease) Non-compliance with renal dialysis Hypertensive urgency MDD (major depressive disorder), recurrent episode MDD (major depressive disorder) Renal failure Foot ulcer CKD (chronic kidney disease) Hypertension Diabetic foot Hyperkalemia Vomiting Renal failure Hypertension Migraine Chronic pain ESRD on dialysis Non-compliance with renal dialysis Hypertension End-stage renal disease (ESRD) Diabetic foot ulcer associated with type 2 diabetes mellitus Diabetes ESRD needing dialysis Cardiomyopathy HFrEF (heart failure with reduced ejection fraction) delivery delivered Anemia in chronic kidney disease (CKD) CKD (chronic kidney disease) Headache, migraine Abnormal finding on echocardiogram Elevated troponin Chest pain Acute worsening of stage 3 chronic kidney disease Generalized edema Sepsis Cellulitis Pleural effusion CHF (congestive heart failure) (~06/07/22) Tachycardia Atypical chest pain Bone infection PAD (peripheral artery disease) Severe anemia Cellulitis and abscess of foot DM foot ulcer Osteomyelitis Asthma Depression with anxiety Diabetic retinopathy Type 2 diabetes mellitus with hyperglycemia, with long-term current use of insulin Blind right eye Diabetes Back pain Family History Family History Mother Coronary artery disease Myocardial infarction Stroke Diabetes mellitus Father Myocardial infarction Family history: reviewed and not pertinent Surgical History Surgical History Tubal ligation status Previous section Hx laparoscopic cholecystectomy Hx of surgical procedure (~09/11/23) 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 Social History Social History Household Members: Family Household Members Other:: Sister Housing: House Are you a primary manager care management to a significant other at home: No Do you presently have visiting nurse or other home services: No Unable to assess alcohol history related to: Unknown Alcohol intake: never Comment: Remain w/ pt on commode. Patient Tobacco Use Status: Never used Tobacco Smoked in Last 30 Days: No e-Cigarette/Vaping Use: Never Used Patient Interested in Nicotine Replacement: No Patient Given Instructions on How to Stop Smoking: No Second Hand Smoke Exposure: No Use of substances other than those prescribed or required for medical reasons: Unknown Currently Displaying Signs/Symptoms of Drug Intoxication Withdrawal: No Any prior treatment program specific to substance use: No Have you been hit, kicked, punched, or otherwise hurt by someone within the past year? If so, by whom?: No Do you feel safe in your current relationship?: No Current Relationship Is there a partner from a previous relationship who is making you feel unsafe now?: No Are you made to feel afraid or neglected: No Advance Directives: Yes Advance Directives Information Provided: No Advance Directives on File: Yes Advance Directives Date on File: 08/28/23 Do you have a plan to hurt others: No Plan Recently lost weight without trying: No Eating poorly because of decreased appetite: No Nutrition Risks: No Nutritional Risk Patient : No : No Poor oral hygiene: No service: No Current occupational status: unemployed and disabled Gender identity: Female Meds Allergies Allergy/AdvReac Type Severity Reaction Status Date / Time morphine [MORPHINE] Allergy Intermediate Itching Verified 02/24/24 21:34 azithromycin [From Zithromax] Allergy Hives Verified 02/24/24 21:34 gabapentin Allergy Facial Verified 02/24/24 21:34 Swelling tramadol Allergy Facial Verified 02/24/24 21:34 Swelling vancomycin Allergy Anaphylaxis Verified 02/24/24 21:34 Active Medications: Current Medications Acetaminophen (Acetaminophen 325 Mg Tablet) 650 mg PO Q6H PRN PRN Reason: Pain, Mild 1-3,fever,headache Bethanechol Chloride (Bethanechol Chloride 25 Mg Tablet) 50 mg PO BID [facility] Last Admin: 03/02/24 21:11 Dose: Not Given Calcium Carbonate (Calcium Carbonate 750 Mg Tab.Chew) 750 mg PO Q4H PRN PRN Reason: Heartburn Carvedilol (Carvedilol 6.25 Mg Tablet) 6.25 mg PO BID [facility]; Protocol Last Admin: 03/03/24 08:19 Dose: 6.25 mg Diphenhydramine HCl (Diphenhydramine Hcl 50 Mg/Ml Vial) 12.5 mg IVPUSH Q6H PRN PRN Reason: Itching Last Admin: 03/03/24 03:00 Dose: 12.5 mg Glucose (Glucose Gel 15 Gm Gel..Gram.) 15 gm PO Q15M PRN; Protocol PRN Reason: per Hypoglycemia Standing Ord. Heparin Sodium (Porcine) (Heparin Sodium,Porcine 5,000 Unit/Ml Vial) 5,000 unit SUBCUT Q12H [facility] Last Admin: 03/03/24 01:17 Dose: Not Given Hydromorphone HCl (Hydromorphone Hcl 0.5 Mg/0.5 Ml Syringe) 0.5 mg IVPUSH Q8H PRN; Protocol PRN Reason: Pain, Severe (Pain Scale 7-10) Last Admin: 03/03/24 02:15 Dose: 0.5 mg Dextrose (D10) 250 mls @ 750 mls/hr IV Q15M PRN; Protocol PRN Reason: per Hypoglycemia Standing Ord. Cefazolin Sodium/Dextrose (Ancef) 2 gm in 50 mls @ 100 mls/hr IV TuThSa@1800 [facility] Last Infusion: 03/01/24 19:55 Dose: Infused Insulin Human Lispro (Insulin Lispro 100 Unit/Ml 3 Ml Vial) 0 unit SUBCUT QIDACHS [facility]; Protocol Last Admin: 03/03/24 07:36 Dose: Not Given Magnesium Hydroxide (Milk Of Magnesia 30 Ml Oral.Susp) 30 ml PO DAILY PRN PRN Reason: Constipation Melatonin (Melatonin 3 Mg Tablet) 6 mg PO BEDTIME PRN PRN Reason: Insomnia Metoclopramide HCl (Metoclopramide Hcl 10 Mg/2 Ml Vial) 5 mg IVPUSH Q6H PRN PRN Reason: Nausea and Vomiting Last Admin: 03/02/24 20:47 Dose: 5 mg Ondansetron HCl (Ondansetron Hcl 4 Mg/2 Ml Vial) 4 mg IVPUSH Q8H PRN PRN Reason: Nausea and Vomiting Last Admin: 03/03/24 02:15 Dose: 4 mg Sodium Chloride (0.9 % Sodium Chloride Flush 3 Ml Syringe) 3 ml IVFLUSH QSHIFT [facility] Last Admin: 03/03/24 08:19 Dose: 3 ml Tamsulosin HCl (Tamsulosin Hcl 0.4 Mg Capsule) 0.4 mg PO DAILY [facility] Last Admin: 03/02/24 08:52 Dose: 0.4 mg Home Medications ?Medication ?Instructions ?Recorded ?Confirmed ?Last Taken ?Type albuterol sulfate 90 mcg/actuation 2 puff inhalation Q6H PRN wheezing 01/15/24 02/25/24 Unknown History aerosol inhaler (Ventolin HFA) lidocaine 5 % topical patch 1 patch topical DAILY 01/15/24 02/25/24 02/24/24 History nitroglycerin 0.4 mg sublingual 0.4 mg sublingual DIRECTED PRN 01/15/24 02/25/24 Unknown History tablet Angina Physical Exam 2 Vital Signs: Vital Signs: Last Vital Signs Temp 98.2 F 03/03/24 08:00 Pulse 60 03/03/24 08:19 Resp 18 03/03/24 08:00 BP 178/90 H 03/03/24 08:19 Pulse Ox 95 03/03/24 08:00 O2 Del Method Room Air 03/03/24 08:00 O2 Flow Rate 3 02/29/24 04:00 Oxygen Flow Rate 6 02/24/24 21:15 BMI result Body Mass Index 29.9 Chest: Other: Chest sounds bilaterally, HS 1 in 2 GI: Other: Abdomen is soft, benign Results Labs 02/29/24 10:28 02/29/24 10:28 Labs: Abnormal lab results 03/02/24 03/02/24 03/03/24 Range/Units 11:11 16:04 06:58 POC Glucose 131 H 125 H 129 H (60-115) mg/dL Urine 02/25/24 Range/Units 22:00 Urine Color Yellow Urine Appearance Cloudy Urine pH 6.5 (5.0-9.0) Ur Specific [place] 1.015 (1.005-1.025) Urine Protein >=1000 (4+) H (Neg-Trace) mg/dL Urine Glucose (UA) Negative (Negative) mg/dL All other labs normal. Assessment and Plan (1) Pericardial effusion: Status: Acute Plan At present, the significant pericardial effusion is offering no hemodynamic compromise. Once the patient is reestablished on her dialysis, this may help resolve or less in the effusion. However, should this progress or the patient demonstrated any evidence of pericardial tamponade, surgical intervention for drainage we will be undertaken. At present, observation for this. Procedures Date of Service Date of Service: 03/03/24
[2024-03-03] MEDS: Tamsulosin HCL 0.4 MG CAPSULE PO (10:16)
[2024-03-03] MEDS: Bethanechol Chloride 25 MG TABLET 50 MG PO ×2 (10:16→21:00)
[2024-03-03] MEDS: Metoclopramide HCl 10 MG/2 ML VIAL 5 MG IVPUSH (10:17)
--- NOTE | 2024-03-03 10:45 | HO.PM.IMPN ---
Subjective Subjective Date of Service: 03/03/24 Interval History: seen and examined no new complaints Review of Systems Negative except HPI/interval history. Physical Exam Vital Signs: Vital Signs: Last Vital Signs Temp 98.2 F 03/03/24 08:00 Pulse 60 03/03/24 08:19 Resp 18 03/03/24 08:00 BP 178/90 H 03/03/24 08:19 Pulse Ox 95 03/03/24 08:00 O2 Del Method Room Air 03/03/24 08:00 O2 Flow Rate 3 02/29/24 04:00 Oxygen Flow Rate 6 02/24/24 21:15 BMI result Body Mass Index 29.9 Appearing in no acute distress lung sounds are clear to auscultation heart regular rate rhythm, clear S1, S2 positive bowel sounds, abdomen is soft, nontender neuro patient is alert x3, no focal deficits Objective Data Active Medications Acetaminophen (Acetaminophen 325 Mg Tablet) 650 mg PO Q6H PRN PRN Reason: Pain, Mild 1-3,fever,headache Bethanechol Chloride (Bethanechol Chloride 25 Mg Tablet) 50 mg PO BID [facility] Last Admin: 03/03/24 10:16 Dose: 50 mg Documented By: ARPIT Calcium Carbonate (Calcium Carbonate 750 Mg Tab.Chew) 750 mg PO Q4H PRN PRN Reason: Heartburn Carvedilol (Carvedilol 6.25 Mg Tablet) 6.25 mg PO BID [facility]; Protocol Last Admin: 03/03/24 08:19 Dose: 6.25 mg Documented By: RAFAEL Diphenhydramine HCl (Diphenhydramine Hcl 50 Mg/Ml Vial) 12.5 mg IVPUSH Q6H PRN PRN Reason: Itching Last Admin: 03/03/24 10:16 Dose: 12.5 mg Documented By: ARPIT Fentanyl (Fentanyl Citrate/Pf 100 Mcg/2 Ml Vial) 25 mcg IVPUSH Q5M PRN; Protocol PRN Reason: sedation per intraop request by provider Stop: 03/03/24 11:39 Fentanyl (Fentanyl Citrate/Pf 100 Mcg/2 Ml Vial) 50 mcg IVPUSH Q5M PRN; Protocol PRN Reason: sedation per intraop request by provider Stop: 03/03/24 11:39 Glucose (Glucose Gel 15 Gm Gel..Gram.) 15 gm PO Q15M PRN; Protocol PRN Reason: per Hypoglycemia Standing Ord. Heparin Sodium (Porcine) (Heparin Sodium,Porcine 5,000 Unit/Ml Vial) 5,000 unit SUBCUT Q12H [facility] Last Admin: 03/03/24 01:17 Dose: Not Given Documented By: MARIE Non-Admin Reason: Patient Refused Dextrose (D10) 250 mls @ 750 mls/hr IV Q15M PRN; Protocol PRN Reason: per Hypoglycemia Standing Ord. Cefazolin Sodium/Dextrose (Ancef) 2 gm in 50 mls @ 100 mls/hr IV TuThSa@1800 [facility] Last Infusion: 03/01/24 19:55 Dose: Infused Documented By: SILVESTRE [facility],000 mg in 100 mls @ 400 mls/hr IV INTRAOP PRN PRN Reason: per intraop request by provider Insulin Human Lispro (Insulin Lispro 100 Unit/Ml 3 Ml Vial) 0 unit SUBCUT QIDACHS [facility]; Protocol Last Admin: 03/03/24 07:36 Dose: Not Given Documented By: ARPIT Non-Admin Reason: No Insulin Coverage Magnesium Hydroxide (Milk Of Magnesia 30 Ml Oral.Susp) 30 ml PO DAILY PRN PRN Reason: Constipation Melatonin (Melatonin 3 Mg Tablet) 6 mg PO BEDTIME PRN PRN Reason: Insomnia Metoclopramide HCl (Metoclopramide Hcl 10 Mg/2 Ml Vial) 5 mg IVPUSH Q6H PRN PRN Reason: Nausea and Vomiting Last Admin: 03/03/24 10:17 Dose: 5 mg Documented By: ARPIT Midazolam HCl (Midazolam Hcl 5 Mg/Ml Vial) 0.5 mg IVPUSH Q5M PRN PRN Reason: sedation per intraop request by provider Stop: 03/03/24 11:39 Midazolam HCl (Midazolam Hcl 5 Mg/Ml Vial) 1 mg IVPUSH Q5M PRN PRN Reason: sedation per intraop request by provider Stop: 03/03/24 11:39 Naloxone HCl (Naloxone Hcl 0.4 Mg/Ml Vial) 0.4 mg IVPUSH Q2M PRN PRN Reason: per intraop request by provider Stop: 03/03/24 11:39 Ondansetron HCl (Ondansetron Hcl 4 Mg/2 Ml Vial) 4 mg IVPUSH Q8H PRN PRN Reason: Nausea and Vomiting Last Admin: 03/03/24 02:15 Dose: 4 mg Documented By: MARIE Sodium Chloride (0.9 % Sodium Chloride Flush 3 Ml Syringe) 3 ml IVFLUSH QSHIFT [facility] Last Admin: 03/03/24 08:19 Dose: 3 ml Documented By: RAFAEL Tamsulosin HCl (Tamsulosin Hcl 0.4 Mg Capsule) 0.4 mg PO DAILY [facility] Last Admin: 03/03/24 10:16 Dose: 0.4 mg Documented By: NAY-RIVLA Labs 02/29/24 10:28 02/29/24 10:28 Labs: Laboratory Results - last 24 hr 03/02/24 03/02/24 03/03/24 11:11 16:04 06:58 POC Glucose 131 H 125 H 129 H Microbiology Microbiology Results: Microbiology 02/29/24 10:34 Blood Culture - Preliminary Blood - Venous No growth after 48 hours. 02/29/24 10:28 Blood Culture - Preliminary Blood - Venous No growth after 48 hours. Assessment and Plan (1) Acute respiratory failure with hypoxia: Status: Acute Plan 33-year-old with multiple medical problems who is noncompliant with treatment and presenting with shortness of breath. Found to be in fluid overload due to missed dialysis. Hospital course further complicated by Gram-positive bacteremia. MSSA bacteremia IV Kefzol 2 g after dialysis dialysis catheter removal 02/25, culture sent> positive for MSSA; temp cath placed 02/27 survellience cx neg after 24 hrs echo w/o vegetation nephrology following permacath planned for today Urinary retention edwards catheter placed 03/01/24 continue tamsulosin consult urology>voiding trial, bladder scan and st cath prn Acute on chronic respiratory failure with hypoxia. Resolved Due to underlying congestive heart failure as well as ESRD and noncompliance with scheduled dialysis sessions Respiratory failure has improved to her baseline Enterococcus +urine C&S d/w ID -- no need to Rx given no symptoms. ESRD on HD Dialysis per Nephrology Chronic pain and opiate dependence IV Dilaudid, taper as tolerated DM 2 Continue sliding scale and point of cares CAD/cardiomyopathy Continue baseline meds Hypertension with hypotension. Resolved coreg at 1/2 home dose and hold others resume HCTZ thrombocytopenia chronically low Full code DVT prophylaxis heparin (pt refusing despite education) Quality Stroke Does the patient have a stroke diagnosis?: No VTE Prior VTE?: No VTE Risk Level:: Medical - moderate - high VTE Device Contraindication: Treatment Not Indicated VTE Drug Contraindication: N/A - Med Ordered
[2024-03-03 11:35] LABS: Glucose, Whole Blood 153 mg/dL (60-115)
[2024-03-03] MEDS: hydrALAZINE HCl 50 MG TABLET PO ×3 (12:29→21:00)
[2024-03-03] MEDS: LORazepam 0.5 MG TABLET PO (12:29)
[2024-03-03] MEDS: fentaNYL citrate/PF 100 MCG/2 ML VIAL 25 MCG IVPUSH ×3 (13:48→14:13)
--- NOTE | 2024-03-03 13:50 | MHC.CM.PN ---
EMR reviewed and per MD rounds, pt is not medically cleared for discharge due to management of bacteremia, perma cath placement today, anticipating pt will discharge home tomorrow after HD.
[2024-03-03] MEDS: fentaNYL citrate/PF 100 MCG/2 ML VIAL 50 MCG IVPUSH (14:02)
--- NOTE | 2024-03-03 14:30 | PCN2_ITS ---
Brief Operative Note Date of procedure: 03/03/24 Pre-op diagnosis: Needs correction access for HD, BC negative x 48 hr Post-op diagnosis: same Procedure: Left EJ Permacath 27 cm left EJ permacath placed using US and FL. Tip at cavoatrial junction. Ok for use. Left IJ trialysis catheter removed.
[2024-03-03 16:26] LABS: Glucose, Whole Blood 143 mg/dL (60-115)
[2024-03-04] VITALS: BP 164/81; PULSE 79; RESP 16; TEMP 37; O2SAT 96
[2024-03-04] MEDS: diphenhydrAMINE HCL 50 MG/ML VIAL 12.5 MG IVPUSH ×3 (03:04→15:09)
[2024-03-04] MEDS: HYDROmorphone HCl 0.5 MG/0.5 ML SYRINGE IVPUSH ×3 (03:09→15:09)
--- NOTE | 2024-03-04 08:55 | MHC.CM.PN ---
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 Original Note: IMM 03/04/24, PT MEDICALLY CLEARED FOR DC W/IV KEFZOL X 1 MONTH AFTER DIALYSIS, PT WILL HAVE [facility] VIA [facility].
[2024-03-04] MEDS: hydrALAZINE HCl 50 MG TABLET PO ×2 (08:59→15:09)
[2024-03-04] MEDS: carvediloL 6.25 MG TABLET PO (08:59)
[2024-03-04] MEDS: Tamsulosin HCL 0.4 MG CAPSULE PO (09:00)
[2024-03-04] MEDS: Bethanechol Chloride 25 MG TABLET 50 MG PO (09:00)
[2024-03-04] MEDS: 0.9 % Sodium Chloride Flush 3 ML SYRINGE IVFLUSH ×2 (09:03→15:09)
--- NOTE | 2024-03-04 13:35 | PM.DS ---
DS: Providers Provider Date of Service: 03/04/24 Date of admission: 02/25/24 00:51 Date of discharge: 03/04/24 Primary care physician: Genevieve Casillas MD Consults: 02/25/24 00:51 Consult to Nephrology Routine Consulting Provider: [facility] Reason for consultation: severe hyperkalemia, fluid overload esrd 02/25/24 10:41 Consult to Wound Care Routine Reason for consultation: DM ulcers to suzy feet Has provider been notified: No 02/25/24 10:42 Consult to Infectious Diseases Routine Consulting Provider: [facility] [place] [facility] Reason for consultation: bacteremia 02/29/24 14:35 Consult to Thoracic Surgery Routine Consulting Provider: Jose Elias Granger Reason for consultation: moderate to large pericardial effusion on echo 03/01/24 09:58 Consult to Urology Routine Consulting Provider: [facility] [place] [facility] Urology [facility] Reason for consultation: retension DS: Diagnosis Discharge Diagnosis (1) Acute respiratory failure with hypoxia: Status: Acute DS: Summary Hospital Course Hospital Course: History and physical as per admitting provider. 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 Patient states her last dialysis was on 02/20 end-stage she has been compliant with her home prescription medications. Patient is complaining of increasing dyspnea which has been progressive and worse when she lays flat. Denies fever, chills, palpitations, abdominal pain. In the emergency department, patient was found to have hyperkalemia and given calcium gluconate, IV furosemide, IV bicarb, DuoNebs and Lokelma. Patient requiring 10 L supplemental oxygen in the ER 33-year-old woman treated for MSSA bacteremia secondary to PermCath infection. Started on IV Kefzol 2 g after dialysis. Culture sent from dialysis catheter and was positive for MSSA. Temp catheter placed on 02/28/2024. Surveillance blood cultures have been negative. Echocardiogram without vegetation. PermCath placed on 03/03/2024. Plan is to discharge patient home. She now has transportation to dialysis Sunday, and Saturdays. Patient is to return back to the ER for any signs of infection to catheter. She will continue Kefzol 2 g after dialysis for total of 30 days, end date tentatively 04/03/2024 if she completes all dialysis sessions. She was noted to have urinary retention as well as in previous admissions., seems like neurogenic bladder. Had a Carrero cath placed on 03/01/2024. Seen by Urology with recommendation for voiding trial. Patient has been able to void on her own. Tamsulosin was increased to 0.8 mg. She can follow up with Urology outpatient for further episodes of urinary retention. See also had some acute on chronic respiratory failure with hypoxia likely secondary to missed dialysis sessions but improved after dialysis treatment. End-stage renal disease on dialysis. Continue dialysis Sunday, and Sunday Chronic pain opiate dependence. Patient treated with IV Dilaudid during hospitalization and taper down. Diabetes mellitus type 2. Treated with sliding scale and point of cares. Diet-controlled at home. Coronary artery disease/cardiomyopathy. Continue carvedilol. Hypertension. Continue carvedilol and hydrochlorothiazide Chronic thrombocytopenia. No change during hospitalization. Time Attestation Discharge Coordination Time (in mins): 40 Quality: Safe Use of Opioids Does Pt have an Active Cancer Diagnosis on the Problem List?: No Quality: Stroke Does the patient have a stroke diagnosis?: No Physical Exam Vital Signs: Vital Signs: Last Vital Signs Temp 98.6 F 03/04/24 00:00 Pulse 79 03/04/24 00:00 Resp 16 03/04/24 00:00 BP 164/81 H 03/04/24 00:00 Pulse Ox 96 03/04/24 00:00 O2 Del Method Room Air 03/04/24 00:00 O2 Flow Rate 2 03/03/24 14:11 Oxygen Flow Rate 6 02/24/24 21:15 BMI result Body Mass Index 29.9 Appearing in no acute distress head is normocephalic atraumatic eyes pupils are PERRLA sclera is anicteric mouth throat mucous membranes are intact and moist neck is supple no lymphadenopathy, no JVD noted lung sounds are clear to auscultation heart regular rate rhythm, clear S1, S2 positive bowel sounds, abdomen is soft, nontender neuro patient is alert x3, no focal deficits DS: Data Data Completed and Pending Completed studies during hospitalization [Text1]: Procedures Detachment at Left 2nd Toe, Complete, Open Approach (09/08/23) Detachment at Left 3rd Toe, Complete, Open Approach (09/08/23) Detachment at Left 4th Toe, Complete, Open Approach (09/08/23) Detachment at Right Foot, Partial 1st Ray, Open Approach (03/01/20) Detachment at Right Foot, Partial 2nd Ray, Open Approach (03/01/20) Detachment at Right Foot, Partial 3rd Ray, Open Approach (03/01/20) Detachment at Right Foot, Partial 4th Ray, Open Approach (03/01/20) Detachment at Right Foot, Partial 5th Ray, Open Approach (03/01/20) Drainage of Right Pleural Cavity, Percutaneous Approach (01/14/21) Excision of Left Foot Muscle, Open Approach (01/14/24) Excision of Left Foot Skin, External Approach (10/08/23) Excision of Left Foot Subcutaneous Tissue and Fascia, Open Approach (10/08/23) Excision of Right Foot Skin, External Approach (08/27/23) Excision of Stomach, Pylorus, Via Natural or Artificial Opening Endoscopic, Diagnostic (08/27/22) Fluoroscopy of Superior Vena Cava, Guidance (08/14/22) Insertion of Endotracheal Airway into Trachea, Via Natural or Artificial Opening (11/10/23) Insertion of Infusion Device into Right Atrium, Percutaneous Approach (01/14/24) Insertion of Infusion Device into Superior Vena Cava, Percutaneous Approach (11/10/23) Insertion of Infusion Device into Upper Vein, Percutaneous Approach (01/14/24) Insertion of Tunneled Vascular Access Device into Chest Subcutaneous Tissue and Fascia, Percutaneous Approach (11/10/23) Introduction of Vasopressor into Peripheral Vein, Percutaneous Approach (11/10/23) Isolation (11/10/23) Performance of Urinary Filtration, Intermittent, Less than 6 Hours Per Day (02/01/24) Removal of Infusion Device from Great Vessel, External Approach (01/14/21) Removal of Infusion Device from Heart, External Approach (01/14/24) Respiratory Ventilation, Greater than 96 Consecutive Hours (11/10/23) Transfusion of Nonautologous Red Blood Cells into Peripheral Vein, Percutaneous Approach (11/10/23) Ultrasonography of Superior Vena Cava, Guidance (01/14/24) Labs on day of discharge: Laboratory Results - last 24 hr 03/03/24 16:04 POC Glucose 143 H Preliminary micro results at discharge 02/29/24 10:34 Blood Culture - Preliminary Blood - Venous No growth after 48 hours. 02/29/24 10:28 Blood Culture - Preliminary Blood - Venous No growth after 48 hours. Discharge Plan Discharge Anticipated Discharge Date/Time: 03/04/24 07:08 Patient Disposition: Home, Self-Care Discharge Diagnosis: MSSA bacteremia Urinary retention Acute on chronic respiratory failure with hypoxia Referrals: Genevieve Gtz MD [Primary Care Provider] - 1 Week Discharge Medications: New cefazolin in dextrose (iso-os) 2 gram/50 mL Piggyback 50 ml IV [id number] Continued carvedilol 12.5 mg Tablet 12.5 mg PO BID 90 Days Qty: 180 0RF Protocol: Hold for SBP/HR < HOLD for SBP < : 90 HOLD for HR < : 60 hydralazine 50 mg Tablet 50 mg PO TID 90 Days Qty: 270 0RF Protocol: Hold for SBP< HOLD for SBP < : 90 lidocaine 5 % adhesive patch,medicated 1 patch topical DAILY nitroglycerin 0.4 mg tablet, sublingual 0.4 mg sublingual DIRECTED PRN (Reason: Angina) albuterol sulfate [Ventolin HFA] 90 mcg/actuation HFA aerosol inhaler 2 puff inhalation Q6H PRN (Reason: wheezing) oxycodone 10 mg tablet 10 mg PO Q6H PRN (Reason: pain) Qty: 20 0RF Rx Instructions: Partial Fill upon patient request. Changed tamsulosin 0.4 mg Capsule 0.8 mg PO BEDTIME Qty: 30 0RF Discontinued sulfamethoxazole-trimethoprim 400-80 mg Tablet 1 tab PO DAILY Qty: 26 0RF Discharge Orders: Discharge Order (Routine); Ordered 03/04/24 Ordered By: Tawny Taylor Diet: Advance to usual diet Activity on Discharge: As tolerated Stand Alone Forms: Patient Portal Discharge page Print Language: Filipino Care Plan Goals: Do not miss any dialysis appointments You had a new PermCath placed, monitor for any signs of infection 2 g of IV Kefzol on dialysis days for total of 30 days, end date 04/03/2024 Health Concerns: MSSA bacteremia Urinary retention Acute on chronic respiratory failure with hypoxia Plan of Treatment: Follow-up with primary care provider as needed Take all medications as prescribed Assessment: See discharge summary
== END 2024-03-04 16:30 | disposition home or self-care (01) | DRG 314 ==
LOC: HO.ED 21:44 → HO.EDOVER 02-25 01:46 → HO.IMC 02-25 03:14
PROVIDERS: Family Medicine; Physician Assistant Surgical; Admitting Provider Student in an Organized Health Care Education/Training Program; Emergency Provider Internal Medicine; PCP Student in an Organized Health Care Education/Training Program; Visit Provider Nurse Practitioner Acute Care
DX: T80.211A Bloodstream infection due to central venous catheter, initial encounter (principal); I50.23 Acute on chronic systolic (congestive) heart failure; N18.6 End stage renal disease; J96.21 Acute and chronic respiratory failure with hypoxia; I13.2 Hypertensive heart and chronic kidney disease with heart failure and with stage 5 chronic kidney disease, or end stage renal disease; I16.1 Hypertensive emergency; R78.81 Bacteremia; F11.20 Opioid dependence, uncomplicated; I42.9 Cardiomyopathy, unspecified; Y82.8 Other medical devices associated with adverse incidents; E11.42 Type 2 diabetes mellitus with diabetic polyneuropathy; E11.319 Type 2 diabetes mellitus with unspecified diabetic retinopathy without macular edema; E87.5 Hyperkalemia; E11.22 Type 2 diabetes mellitus with diabetic chronic kidney disease; I25.10 Atherosclerotic heart disease of native coronary artery without angina pectoris; D63.1 Anemia in chronic kidney disease; B95.61 Methicillin susceptible Staphylococcus aureus infection as the cause of diseases classified elsewhere; G89.29 Other chronic pain; R33.9 Retention of urine, unspecified; D69.6 Thrombocytopenia, unspecified; N31.9 Neuromuscular dysfunction of bladder, unspecified; H54.8 Legal blindness, as defined in USA; Z20.822 Contact with and (suspected) exposure to COVID-19; Z99.2 Dependence on renal dialysis; Z99.81 Dependence on supplemental oxygen; Z91.158 Patient's noncompliance with renal dialysis for other reason; Z91.148 Patient's other noncompliance with medication regimen for other reason; Z79.899 Other long term (current) drug therapy
CPT/HCPCS: 36415; 36556; 36558; 36590; 71045; 80048; 80053; 81001; 82803; 82947; 83605; 83735; 83880; 84484; 85025; 85027; 85610; 87040; 87071; 87077; 87086; 87088; 87147; 87186; 87205; 87635; 90999; 93005; 93306; 94640; 99285; C1750; C1752; C1758; C1769; C1887; J0613; J0690; J1171; J1200; J1920; J1940; J2405; J2765; J3010; P9047; Q9957

== ENCOUNTER → 2024-02-24 21:31 | Outpatient (BNV) | payer OTHER, SELFPAY | PROVIDERS: Admitting Provider Student in an Organized Health Care Education/Training Program; Emergency Provider Internal Medicine; PCP Student in an Organized Health Care Education/Training Program; Visit Provider Internal Medicine Cardiovascular Disease | DX: R94.31 Abnormal electrocardiogram [ECG] [EKG] (principal) | CPT/HCPCS: 93010 ==

== ENCOUNTER → 2024-02-24 21:31 | Outpatient (BNV) | payer OTHER, SELFPAY | PROVIDERS: Emergency Provider Internal Medicine; PCP Student in an Organized Health Care Education/Training Program; Visit Provider Radiology Diagnostic Radiology | DX: R06.02 Shortness of breath (principal) | CPT/HCPCS: 71045 ==

== ENCOUNTER → 2024-02-24 21:43 | Outpatient (BNV) | payer OTHER, SELFPAY | PROVIDERS: Emergency Provider Internal Medicine; PCP Student in an Organized Health Care Education/Training Program; Visit Provider Student in an Organized Health Care Education/Training Program | DX: J96.01 Acute respiratory failure with hypoxia (principal); I50.9 Heart failure, unspecified; I16.1 Hypertensive emergency | CPT/HCPCS: 99223; 99499 ==

== ENCOUNTER 2024-02-25 00:51 | Outpatient (BNV) | payer OTHER, SELFPAY | END 2024-03-03 13:00 | PROVIDERS: Admitting Provider Student in an Organized Health Care Education/Training Program; Emergency Provider Internal Medicine; PCP Student in an Organized Health Care Education/Training Program; Visit Provider Physician Assistant Surgical | DX: N18.6 End stage renal disease (principal) | CPT/HCPCS: 36558; 76937; 77001 ==

== ENCOUNTER 2024-02-25 00:51 | Outpatient (BNV) | payer OTHER, SELFPAY | END 2024-02-28 11:00 | PROVIDERS: Admitting Provider Student in an Organized Health Care Education/Training Program; Emergency Provider Internal Medicine; PCP Student in an Organized Health Care Education/Training Program; Visit Provider Physician Assistant Surgical | DX: N18.6 End stage renal disease (principal) | CPT/HCPCS: 36556; 76937; 77001 ==

== ENCOUNTER 2024-02-25 00:51 | Outpatient (BNV) | payer OTHER, SELFPAY | END 2024-02-26 11:30 | PROVIDERS: Admitting Provider Student in an Organized Health Care Education/Training Program; Emergency Provider Internal Medicine; PCP Student in an Organized Health Care Education/Training Program; Visit Provider Physician Assistant Surgical | DX: R78.81 Bacteremia (principal) | CPT/HCPCS: 36590 ==

== ENCOUNTER 2024-02-25 00:51 | Outpatient (BNV) | payer OTHER, SELFPAY | END 2024-02-29 07:00 | PROVIDERS: Admitting Provider Student in an Organized Health Care Education/Training Program; Emergency Provider Internal Medicine; PCP Student in an Organized Health Care Education/Training Program; Visit Provider Internal Medicine Cardiovascular Disease | DX: I34.0 Nonrheumatic mitral (valve) insufficiency (principal); I37.1 Nonrheumatic pulmonary valve insufficiency; I36.1 Nonrheumatic tricuspid (valve) insufficiency; R78.81 Bacteremia | CPT/HCPCS: 93306 ==

== ENCOUNTER → 2024-02-25 00:51 | Outpatient (BNV) | payer OTHER, SELFPAY | PROVIDERS: Admitting Provider Student in an Organized Health Care Education/Training Program; Emergency Provider Internal Medicine; PCP Student in an Organized Health Care Education/Training Program; Visit Provider Internal Medicine | DX: J96.01 Acute respiratory failure with hypoxia (principal); N18.6 End stage renal disease; Z99.2 Dependence on renal dialysis | CPT/HCPCS: 99222 ==

== ENCOUNTER → 2024-02-25 00:51 | Outpatient (BNV) | payer OTHER, SELFPAY | PROVIDERS: Admitting Provider Student in an Organized Health Care Education/Training Program; Emergency Provider Internal Medicine; PCP Student in an Organized Health Care Education/Training Program; Visit Provider Urology | DX: E11.42 Type 2 diabetes mellitus with diabetic polyneuropathy (principal); N31.9 Neuromuscular dysfunction of bladder, unspecified | CPT/HCPCS: 99222 ==

== ENCOUNTER → 2024-02-25 00:51 | Outpatient (BNV) | payer OTHER, SELFPAY | PROVIDERS: Admitting Provider Student in an Organized Health Care Education/Training Program; Emergency Provider Internal Medicine; PCP Student in an Organized Health Care Education/Training Program; Visit Provider Surgery | DX: I31.39 Other pericardial effusion (noninflammatory) (principal) | CPT/HCPCS: 99222 ==

== ENCOUNTER 2024-03-07 09:39 | Outpatient (REF) | payer OTHER, SELFPAY ==
[2024-03-07 11:48] LABS: Hemoglobin 7.5 g/dl (12.0-16.0); Mean Corpuscular HGB Conc 31.3 g/dl (31.0-35.0); Mean Corpuscular Hemoglobin 28.8 pg (27.0-33.0); Mean Corpuscular Volume 92.3 fL (80.0-98.0); Mean Platelet Volume 11.7 fL (9.4-12.3); Platelet Count 177 X10*3/uL (160-400); Red Cell Distribution Width 15.9 % (11.0-16.0)
[2024-03-07 12:01] LABS: Estimated Average Glucose 117 mg/dL; Hemoglobin A1C 76.6997 umol/L; Hemoglobin A1c % 5.7 % (<6.0); Total Hemoglobin (HGBA1C) 1963.0497 umol/L
[2024-03-07 12:18] LABS: Ferritin 108 ng/mL (10-122); TSH reflex Free T4 2.01 uIU/mL (0.32-4.0)
[2024-03-07 12:20] LABS: Syphilis Screen Nonreactive (Nonreactive)
[2024-03-07 12:29] LABS: Folate 9.6 ng/mL (> or = 4.0); Vitamin B12 670 pg/mL (200-900)
[2024-03-07 12:37] LABS: Alanine Aminotransferase < 6 U/L (0-31); Albumin Level 3.3 g/dL (3.5-5.0); Alkaline Phosphatase 203 U/L (39-117); Anion Gap 14 (12-20); Aspartate Amino Transferase 43 U/L (5-31); Bilirubin Total 0.8 mg/dL (0.0-1.0); Blood Urea Nitrogen 60 mg/dL (9-16); Calcium 7.9 mg/dL (8.4-10.2); Carbon Dioxide 27 mmol/L (22-29); Chloride 104 mmol/L (96-108); Cholesterol 107 mg/dL (<200); Glucose Random 88 mg/dL (60-115); HDL Cholesterol 35 mg/dL (>40); Iron 34 mcg/dL (30-160); LDL Cholesterol Calculated 65 mg/dL (<100); Percent Iron Saturation 14 % (15-50); Potassium 4.4 mmol/L (3.3-5.1); Sodium 141 mmol/L (135-145); Total Iron Binding Capacity 249 mcg/dL (228-428); Total Protein 7.4 g/dL (6.5-8.0); Triglycerides 36 mg/dL (<150); Unsaturated Iron Binding 215 ug/dL
[2024-03-07 12:40] LABS: Estimated Glomerular Filt Rate 8
[2024-03-07 12:47] LABS: HBS Num1 15.95 mIU/mL (0-7.99); HBc Num1 0.15 S/CO (0.00-0.79); HBsAGNum1 0.35 S/CO (0.00-0.99); Hepatitis B Core Antibody Nonreactive (Nonreactive); Hepatitis B Surface Antigen Negative (Negative); ~Hepatitis B Surface Antibody REACTIVE (Nonreactive)
[2024-03-07 12:54] LABS: HIV AB/AG Nonreactive (Nonreactive); HIV Num 1 0.06 S/CO (0.00-0.99); ~HepC Num1 0.15 S/CO (0.00-0.79); ~Hepatitis C Antibody Nonreactive (Nonreactive)
== END 2024-03-07 09:40 | disposition home or self-care (01) ==
LOC: HO.HHCL 09:39
PROVIDERS: Surgery Vascular Surgery; Visit Provider Student in an Organized Health Care Education/Training Program
DX: Z00.00 Encounter for general adult medical examination without abnormal findings (principal); I50.30 Unspecified diastolic (congestive) heart failure; E11.69 Type 2 diabetes mellitus with other specified complication; Z79.4 Long term (current) use of insulin; Z11.59 Encounter for screening for other viral diseases; Z72.89 Other problems related to lifestyle; Z13.1 Encounter for screening for diabetes mellitus
CPT/HCPCS: 36415; 80053; 80061; 82306; 82607; 82728; 82746; 83036; 83540; 84443; 85027; 86704; 86706; 86780; 86803; 87340; 87389

== ENCOUNTER 2024-03-08 20:41 | Emergency (ER) | payer OTHER, SELFPAY ==
--- NOTE | ~2024-03-08 | CT_ITS ---
CLINICAL HISTORY: abdominal pain CT abdomen and pelvis with contrast Comparison: CT/SR - CT ABDOMEN PELVIS W IV CON - 11/14/23 12:52 EDT Findings: Small right pleural effusion decreased compared with the prior study. Small pericardial effusion. The liver is enlarged with heterogeneous enhancement which may be related to steatosis and vascular congestion. Gallbladder is absent. The spleen is enlarged measuring up to 16.5 cm. Pancreas, adrenal glands and kidneys demonstrate no acute process. The bowel is nondilated and noninflamed. Normal appendix. Small volume ascites, Decreased from the prior exam. No drainable collections or pneumoperitoneum. Carrero catheter within the bladder. Unremarkable uterus and ovaries. Mildly enlarged retroperitoneal and pelvic lymph nodes, possibly reactive. Nonaneurysmal aorta. Portal vein is patent without thrombus. No acute fracture. IMPRESSION: 1. Hepatosplenomegaly with heterogeneous hepatic enhancement which could suggest steatosis and/or vascular congestion. Hepatic mass not excluded on the basis of this single phase exam. 2. Small volume ascites, decreased compared with the prior exam. Small right effusion, also decreased.. 3. Mildly enlarged retroperitoneal and pelvic sidewall lymph nodes, possibly reactive and similar to the prior study. This document has been electronically signed by: Kelsey Gutierrez MD on 03/09/2024 09:09:46
--- NOTE | ~2024-03-08 | XR_ITS ---
CLINICAL HISTORY: chronic sob 1 view chest x-ray Comparison: CR - XR CHEST 1V - 02/24/24 21:35 EST Findings: Cardiomegaly similar to previous examination. No consolidation, significant pleural effusion or pneumothorax. Stable left central venous catheter with tip at cavoatrial junction. No acute fracture. IMPRESSION: 1. Cardiomegaly with no overt congestive heart failure. This document has been electronically signed by: Angélica Shaffer MD on 03/09/2024 04:01:46
--- NOTE | ~2024-03-08 | XR_ITS ---
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 No radiographic evidence of erosions or bone destruction. No acute fracture or dislocation. No ankle joint effusion. Atherosclerotic vascular disease. IMPRESSION: 1. Stable postoperative changes with amputation at the level of the bases of the metatarsals 1-5 with no acute osseous findings on x-rays. If clinically indicated follow-up MRI with and without contrast should be obtained. This document has been electronically signed by: Angélica Shaffer MD on 03/09/2024 04:08:54
[2024-03-08 21:00] VITALS: BP 189/103; PULSE 98; O2SAT 98
[2024-03-08 21:11] VITALS: BP 193/102; PULSE 93; RESP 16; TEMP 36.5; O2SAT 96; BMI 29.1
[2024-03-09 00:45] VITALS: BP 176/95; PULSE 87; RESP 14; TEMP 36.4; O2SAT 96
--- NOTE | 2024-03-09 01:21 | ED.GENADULT ---
HPI - General Adult General Chief complaint: General Medical Stated complaint: pain Time Seen by Provider: 03/09/24 01:36 Source: patient and EMS Mode of arrival: EMS Limitations: no limitations History of Present Illness ED Provider: Dr. Helen Pal HPI narrative: Patient comes to the emergency room complaining diffuse body aches especially her right lower extremity. Patient states that she has had infections in her foot before. Patient has 2 visiting nurse who help her change her dressings. Patient states that her p.o. medications oxycodone at home are not working and it is something stronger. Patient denies any fever or chills. Related Data Home Medications ?Medication ?Instructions ?Recorded ?Confirmed albuterol sulfate 90 mcg/actuation 2 puff inhalation Q6H PRN wheezing 01/15/24 02/25/24 aerosol inhaler (Ventolin HFA) lidocaine 5 % topical patch 1 patch topical DAILY 01/15/24 02/25/24 nitroglycerin 0.4 mg sublingual 0.4 mg sublingual DIRECTED PRN 01/15/24 02/25/24 tablet Angina Previous Rx's ?Medication ?Instructions ?Recorded carvedilol 12.5 mg tablet 12.5 mg PO BID 90 days #180 tabs 12/16/23 hydralazine 50 mg tablet 50 mg PO TID 90 days #270 tabs 12/16/23 oxycodone 10 mg tablet 10 mg PO Q6H PRN pain #20 tabs 01/26/24 cefazolin 2 gram/50 mL in dextrose 50 ml IV TuThSa@1800 03/04/24 (iso-osmotic) intravenous piggyback tamsulosin 0.4 mg capsule 0.8 mg (2 x 0.4 mg) PO BEDTIME #30 03/04/24 caps Allergies Allergy/AdvReac Type Severity Reaction Status Date / Time morphine [MORPHINE] Allergy Intermediate Itching Verified 03/08/24 21:12 azithromycin [From Zithromax] Allergy Hives Verified 03/08/24 21:12 gabapentin Allergy Facial Verified 03/08/24 21:12 Swelling tramadol Allergy Facial Verified 03/08/24 21:12 Swelling vancomycin Allergy Anaphylaxis Verified 03/08/24 21:12 Review of Systems Review of Systems: Constitutional : No Weight loss, No Fever, No Chills, No Night Sweats, complaining of fatigue and chronic generalized pain ENT/Mouth : No Hearing loss, No Ear Pain, No Nasal Congestion, No Sinus Pain, No Hoarseness, No sore throat, No Rhinorrhea, No Swallowing Difficulty Eyes: No Eye Pain, No Swelling, No Redness, No Foreign Body, No Discharge, No Vision Changes Cardiovascular : No Chest Pain, No SOB, No Dyspnea on Exertion, No Orthopnea, No Edema, No Palpitations Respiratory : No Cough, No Sputum, No Wheezing, No Smoke Exposure, No Dyspnea Gastrointestinal : No Nausea, No Vomiting, No Diarrhea, No Constipation, No abdominal Pain, No Hematochezia, No Melena Genitourinary : no irregular bleeding, No Dysuria, No Urinary Frequency, No Hematuria, No Urinary Incontinence, No Urgency, No Flank Pain, No Urinary Flow Changes, No Hesitancy Musculoskeletal : Complaining of worsening pain in the right lower extremity Skin : No Skin Lesions, No rash Neuro : No Weakness, No Numbness, No Paresthesias, No Loss of Consciousness, No Dizziness, No Headache Psych : No Anxiety/Panic, No Depression, No SI/HI/AH/VH, No Social Issues, Heme/Lymph: No Bruising, No Bleeding,No Lymphadenopathy Endocrine : No Polyuria, No Polydipsia, No Temperature Intolerance PMFSH Past Medical History Medical History Hypertensive emergency Non-compliance with renal dialysis Decompensated heart failure Congestive heart failure Renal failure Hypertension, uncontrolled Medical non-compliance Pericarditis Unspecified hypertension, condition or complication Metabolic acidosis Gastroparesis End stage chronic kidney disease Chronic kidney disease Anemia Chronic foot ulcer Plantar ulcer of left foot Major depressive disorder, single episode, severe ESRD (end stage renal disease) Non-compliance with renal dialysis Hypertensive urgency MDD (major depressive disorder), recurrent episode MDD (major depressive disorder) Renal failure Foot ulcer CKD (chronic kidney disease) Hypertension Diabetic foot Hyperkalemia Vomiting Renal failure Hypertension Migraine Chronic pain ESRD on dialysis Non-compliance with renal dialysis Hypertension End-stage renal disease (ESRD) Diabetic foot ulcer associated with type 2 diabetes mellitus Diabetes ESRD needing dialysis Cardiomyopathy HFrEF (heart failure with reduced ejection fraction) delivery delivered Anemia in chronic kidney disease (CKD) CKD (chronic kidney disease) Headache, migraine Abnormal finding on echocardiogram Elevated troponin Chest pain Acute worsening of stage 3 chronic kidney disease Generalized edema Sepsis Cellulitis Pleural effusion CHF (congestive heart failure) (~06/07/22) Tachycardia Atypical chest pain Bone infection PAD (peripheral artery disease) Severe anemia Cellulitis and abscess of foot DM foot ulcer Osteomyelitis Asthma Depression with anxiety Diabetic retinopathy Type 2 diabetes mellitus with hyperglycemia, with long-term current use of insulin Blind right eye Diabetes Back pain Surgical History Tubal ligation status Previous section Hx laparoscopic cholecystectomy Hx of surgical procedure (~09/11/23) 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 Family History Family History Mother Coronary artery disease Myocardial infarction Stroke Diabetes mellitus Father Myocardial infarction Social History Social History Household Members: Family Household Members Other:: Sister Housing: House Are you a primary ocular care aide to a significant other at home: No Do you presently have visiting nurse or other home services: No Unable to assess alcohol history related to: Unknown Alcohol intake: never Comment: Remain w/ pt on commode. Patient Tobacco Use Status: Never used Tobacco Smoked in Last 30 Days: No e-Cigarette/Vaping Use: Never Used Second Hand Smoke Exposure: No Use of substances other than those prescribed or required for medical reasons: No Advance Directives: Yes Advance Directives on File: Yes Advance Directives Date on File: 09/04/23 Do you have a plan to hurt others: No Plan Patient : No service: No Current occupational status: unemployed and disabled Gender identity: Female Physical Exam ED Vital Signs: Vital Signs - 24 hr 03/08/24 21:11 03/09/24 00:45 03/09/24 04:30 Temperature 97.7 F 97.6 F 97.8 F Pulse Rate 93 87 92 Respiratory Rate 16 14 20 Blood Pressure 193/102 H 176/95 H 184/103 H Pulse Oximetry 96 96 97 Oxygen Delivery Method Room Air Room Air Room Air 03/09/24 06:25 Temperature Pulse Rate 89 Respiratory Rate 14 Blood Pressure Pulse Oximetry Oxygen Delivery Method BMI result Body Mass Index 29.1 Const Other: Appearance: Alert. Oriented X3. No acute distress. Eyes: Patient has chronic pannus in eyes, patient is legally blind ENT: Pharynx normal. Neck: Normal inspection. Neck supple. No lymph nodes noted. No crepitus CVS: Normal heart rate and rhythm. Pulses normal. Normal S1 and S2 Respiratory: No respiratory distress. Breath sounds normal. No Wheezing. No rales Abdomen: Soft and nontender. No rigidity. No distention. Skin: Chronic venous stasis, no signs of infection. Patient has chronic ulcers in both lower extremities distally Extremities: No lower extremity edema. No Lacerations. No Rash Neuro: Patient moving all extremities, cranial nerves 2-12 grossly intact. Psych: calm, cooperative, normal affect Medications Administered Generic Name Dose Route Start Last Admin Trade Name Freq PRN Reason Stop Dose Admin Calcium Gluconate 2 gm in 100 mls @ 50 mls/hr 03/09/24 06:02 03/09/24 06:29 Calcium Gluconate IV 03/09/24 08:01 50 mls/hr ONCE ONE Administration Discontinued Medications Generic Name Dose Route Start Last Admin Trade Name Freq PRN Reason Stop Dose Admin Albuterol Sulfate 10 mg 03/09/24 06:02 03/09/24 06:20 Albuterol Sulfate (0.083%) 2.5 Mg/3 Ml Vial.Neb INHALE 03/09/24 06:03 10 mg ONCE ONE Administration Carvedilol 12.5 mg 03/09/24 05:57 03/09/24 06:30 Carvedilol 12.5 Mg Tablet PO 03/09/24 05:58 Not Given ONCE ONE Protocol Hydralazine HCl 50 mg 03/09/24 05:57 03/09/24 06:31 Hydralazine Hcl 50 Mg Tablet PO 03/09/24 05:58 Not Given ONCE ONE Protocol Ondansetron HCl 4 mg 03/09/24 06:16 03/09/24 06:30 Ondansetron Hcl 4 Mg/2 Ml Vial IVPUSH 03/09/24 06:17 Not Given ONCE ONE Oxycodone HCl 15 mg 03/09/24 05:57 03/09/24 06:47 Oxycodone Hcl Immed Release 15 Mg Tablet PO 03/09/24 05:58 15 mg ONCE ONE Administration Prochlorperazine Edisylate 10 mg 03/09/24 06:18 03/09/24 06:29 Prochlorperazine Edisylate 10 Mg/2 Ml Vial IVPUSH 03/09/24 06:19 10 mg ONCE ONE Administration Sodium Bicarbonate 50 meq 03/09/24 06:02 03/09/24 06:29 Sodium Bicarbonate 8.4% 50 Meq/50 Ml Syringe IVPUSH 03/09/24 06:03 50 meq ONCE ONE Administration Medical Decision Making Medical Decision Making [facility] Narrative: Interpretation of labs: Patient's white blood cell count 7.0. Patient is chronically anemic. Patient's creatinine is chronically elevated 7.54, chronic for the patient. Patient has no chest pain or shortness of breath. Patient complaining of urinary retention. A Carrero catheter was inserted. Bladder scan shows 300 mL of urine in the bladder. A Carrero catheter was inserted, patient is to follow-up with urology. Patient requesting IV Dilaudid. I reviewed patient's inpatient records, IV Dilaudid is to be avoided. Patient has narcotic-seeking behavior. I discussed with the patient that she can have p.o. oxycodone, dose higher than she uses at home. Patient declined, patient states that she only wants Dilaudid. Patient was given her home medications for blood pressure carvedilol and hydralazine X-ray of the foot does not show any acute abnormality, ulcer itself looks clean, no suspicion for osteomyelitis. Chest x-ray does not show any pulmonary edema. Patient received nebulization treatments, calcium gluconate, insulin, D50, bicarb. My interpretation of EKG: Sinus rhythm, heart rate 65, no ST segment depression or elevation no peaked T-waves, QTC 539. Potassium to be repeated. Sign-out given to my colleague Dr. Jaramillo Differential Diagnosis Differential Diagnoses: The differential diagnosis associated with the presentation includes Admission/Observation Consideration of admission/observation: Escalation of care including admission/observation considered Lab Data [facility] Lab Attestation statement: I reviewed the patient's lab results. 03/09/24 03:59 03/09/24 03:59 Labs: Lab Results 03/09/24 03/09/24 Range/Units 03:58 03:59 WBC 7.0 (4.8-10.8) X10*3/uL RBC 2.53 L (4.20-5.50) X10*6/uL Hgb 7.5 L (12.0-16.0) g/dl Hct 22.8 L (37.0-47.0) % MCV 90.1 (80.0-98.0) fL MCH 29.6 (27.0-33.0) pg MCHC 32.9 (31.0-35.0) g/dl RDW 15.9 (11.0-16.0) % Plt Count 181 (160-400) X10*3/uL MPV 11.5 (9.4-12.3) fL Immature Gran % (Auto) 0.3 (0.0-0.4) % Neut % (Auto) 79.3 H (45-73) % Lymph % (Auto) 8.7 L (20-40) % [place] % (Auto) 8.1 (2-11) % Eos % (Auto) 3.0 (0-4) % Baso % (Auto) 0.6 (0-2) % Lymph # (Auto) 0.6 L (1.2-4.9) X10*3/uL [place] # (Auto) 0.6 (0.1-1.2) X10*3/uL Eos # (Auto) 0.2 (0.0-0.4) X10*3/uL Baso # (Auto) 0.0 (0.0-0.2) X10*3/uL Abs Immat Gran (auto) 0.02 (0.00-0.03) X10*3/uL Absolute Neuts (auto) 5.6 (2.0-8.3) x10*3/uL Absolute Nucleated RBC 0.000 (0.0-0.012) X10*3/uL Nucleated RBC % (auto) 0.0 (0.0-0.2) /100WBC Sodium 136 (135-145) mmol/L Potassium 5.5 H D (3.3-5.1) mmol/L Chloride 105 (96-108) mmol/L Carbon Dioxide 17 L (22-29) mmol/L Anion Gap 20 (12-20) BUN 89 H (9-16) mg/dL Creatinine 7.54 H* (0.5-1.4) mg/dL Estim Creat Clear Calc 11.2 Estimated GFR 6 Random Glucose 113 (60-115) mg/dL Calcium 8.0 L (8.4-10.2) mg/dL Urine Color Yellow Urine Appearance Clear Urine pH 6.5 (5.0-9.0) Ur Specific Ranger 1.020 (1.005-1.025) Urine Protein >=1000 (4+) H (Neg-Trace) mg/dL Urine Glucose (UA) 500 H (Negative) mg/dL Urine Ketones Negative (Negative) mg/dL Urine Blood Negative (Negative) Urine Nitrite Negative (Negative) Ur Leukocyte Esterase Negative (Negative) Urine RBC 0-2 (0-2) /HPF Urine WBC 0-5 (0-5) /HPF Ur Squamous Epith Cells 0-2 (0-2) /HPF Urine Bacteria None Seen (None Seen) Hyaline Casts 0-2 (0-2) /LPF Discharge Plan Discharge Clinical Impression: Chronic hypertension, Chronic pain, Acute urinary retention Patient Disposition: Home, Self-Care Instructions: Chronic Pain (ED), Chronic Hypertension (ED), Chronic Hypertension (DC), Chronic Urinary Retention in Women (ED) Additional Instructions: Please follow-up with your primary care physician tomorrow. If you have any worsening or new symptoms, please return to the emergency room or call 911 Prescriptions: No Action carvedilol 12.5 mg Tablet 12.5 mg PO BID 90 Days Qty: 180 0RF Protocol: Hold for SBP/HR < HOLD for SBP < : 90 HOLD for HR < : 60 hydralazine 50 mg Tablet 50 mg PO TID 90 Days Qty: 270 0RF Protocol: Hold for SBP< HOLD for SBP < : 90 lidocaine 5 % adhesive patch,medicated 1 patch topical DAILY nitroglycerin 0.4 mg tablet, sublingual 0.4 mg sublingual DIRECTED PRN (Reason: Angina) albuterol sulfate [Ventolin HFA] 90 mcg/actuation HFA aerosol inhaler 2 puff inhalation Q6H PRN (Reason: wheezing) oxycodone 10 mg tablet 10 mg PO Q6H PRN (Reason: pain) Qty: 20 0RF Rx Instructions: Partial Fill upon patient request. tamsulosin 0.4 mg Capsule 0.8 mg PO BEDTIME Qty: 30 0RF cefazolin in dextrose (iso-os) 2 gram/50 mL Piggyback 50 ml IV TuThSa@1800 Referrals: Courtney Mcgarry MD [Physician] - 03/12/24 Fernando Siddiqi MD [Physician] - 03/10/24 Print Language: German
--- NOTE | 2024-03-09 01:38 | HO.SKINPHOTO ---
Location: Right foot Category: Stage: Length: Width: Depth: cm Location: Inferior right foot Category: Stage: Length: Width: Depth: cm Location: Left foot Category: Stage: Length: Width: Depth: cm Location: Posterior left foot Category: Stage: Length: Width: Depth: cm Location: Category: Stage: Length: Width: Depth: cm Location: Category: Stage: Length: Width: Depth: cm
--- NOTE | 2024-03-09 03:07 | ED.GENADULT ---
HPI - General Adult General Chief complaint: General Medical Stated complaint: pain Time Seen by Provider: 03/09/24 01:36 Source: patient and EMS Mode of arrival: EMS History of Present Illness ED Provider: Dr. Helen Pal HPI narrative: Patient comes to the emergency room complaining of stump pain in the right lower extremity, generalized body aches. Patient was discharged from hospital 4 days ago, patient was admitted for acute respiratory failure and for an MSSA infection in the catheter. Patient has a new PermCath placed on 03/03/2024. Patient with Kefzol 2 g after dialysis. Also, patient states that when she was here she was having urinary retention, Related Data Home Medications ?Medication ?Instructions ?Recorded ?Confirmed albuterol sulfate 90 mcg/actuation 2 puff inhalation Q6H PRN wheezing 01/15/24 03/09/24 aerosol inhaler (Ventolin HFA) lidocaine 5 % topical patch 1 patch topical DAILY 01/15/24 03/09/24 nitroglycerin 0.4 mg sublingual 0.4 mg sublingual DIRECTED PRN 01/15/24 03/09/24 tablet Angina Previous Rx's ?Medication ?Instructions ?Recorded carvedilol 12.5 mg tablet 12.5 mg PO BID 90 days #180 tabs 12/16/23 hydralazine 50 mg tablet 50 mg PO TID 90 days #270 tabs 12/16/23 oxycodone 10 mg tablet 10 mg PO Q6H PRN pain #20 tabs 01/26/24 cefazolin 2 gram/50 mL in dextrose 50 ml IV TuThSa@1800 03/04/24 (iso-osmotic) intravenous piggyback tamsulosin 0.4 mg capsule 0.8 mg (2 x 0.4 mg) PO BEDTIME #30 03/04/24 caps Allergies Allergy/AdvReac Type Severity Reaction Status Date / Time morphine [MORPHINE] Allergy Intermediate Itching Verified 03/08/24 21:12 azithromycin [From Zithromax] Allergy Hives Verified 03/08/24 21:12 gabapentin Allergy Facial Verified 03/08/24 21:12 Swelling tramadol Allergy Facial Verified 03/08/24 21:12 Swelling vancomycin Allergy Anaphylaxis Verified 03/08/24 21:12 Review of Systems Review of Systems: Constitutional : No Weight loss, No Fever, No Chills, No Night Sweats, No Fatigue, No Malaise ENT/Mouth : No Hearing loss, No Ear Pain, No Nasal Congestion, No Sinus Pain, No Hoarseness, No sore throat, No Rhinorrhea, No Swallowing Difficulty Eyes: No Eye Pain, No Swelling, No Redness, No Foreign Body, No Discharge, No Vision Changes Cardiovascular : No Chest Pain, No SOB, No Dyspnea on Exertion, No Orthopnea, No Edema, No Palpitations Respiratory : No Cough, No Sputum, No Wheezing, No Smoke Exposure, No Dyspnea Gastrointestinal : No Nausea, No Vomiting, No Diarrhea, No Constipation, No abdominal Pain, No Hematochezia, No Melena Genitourinary : Complaining of urinary retention., No Urinary Frequency, No Hematuria, No Urinary Incontinence, No Urgency, No Flank Pain, No Urinary Flow Changes, No Hesitancy Musculoskeletal : Complaining of pain in the right stump lower extremity,, No Myalgias, No Joint Swelling Skin : No Skin Lesions, No rash Neuro : No Weakness, No Numbness, No Paresthesias, No Loss of Consciousness, No Dizziness, No Headache Psych : No Anxiety/Panic, No Depression, No SI/HI/AH/VH, No Social Issues, Heme/Lymph: No Bruising, No Bleeding,No Lymphadenopathy Endocrine : No Polyuria, No Polydipsia, No Temperature Intolerance PMFSH Past Medical History Medical History Hypertensive emergency Non-compliance with renal dialysis Decompensated heart failure Congestive heart failure Renal failure Hypertension, uncontrolled Medical non-compliance Pericarditis Unspecified hypertension, condition or complication Metabolic acidosis Gastroparesis End stage chronic kidney disease Chronic kidney disease Anemia Chronic foot ulcer Plantar ulcer of left foot Major depressive disorder, single episode, severe ESRD (end stage renal disease) Non-compliance with renal dialysis Hypertensive urgency MDD (major depressive disorder), recurrent episode MDD (major depressive disorder) Renal failure Foot ulcer CKD (chronic kidney disease) Hypertension Diabetic foot Hyperkalemia Vomiting Renal failure Hypertension Migraine Chronic pain ESRD on dialysis Non-compliance with renal dialysis Hypertension End-stage renal disease (ESRD) Diabetic foot ulcer associated with type 2 diabetes mellitus Diabetes ESRD needing dialysis Cardiomyopathy HFrEF (heart failure with reduced ejection fraction) delivery delivered Anemia in chronic kidney disease (CKD) CKD (chronic kidney disease) Headache, migraine Abnormal finding on echocardiogram Elevated troponin Chest pain Acute worsening of stage 3 chronic kidney disease Generalized edema Sepsis Cellulitis Pleural effusion CHF (congestive heart failure) (~06/07/22) Tachycardia Atypical chest pain Bone infection PAD (peripheral artery disease) Severe anemia Cellulitis and abscess of foot DM foot ulcer Osteomyelitis Asthma Depression with anxiety Diabetic retinopathy Type 2 diabetes mellitus with hyperglycemia, with long-term current use of insulin Blind right eye Diabetes Back pain Surgical History Tubal ligation status Previous section Hx laparoscopic cholecystectomy Hx of surgical procedure (~09/11/23) 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 Family History Family History Mother Coronary artery disease Myocardial infarction Stroke Diabetes mellitus Father Myocardial infarction Social History Social History Household Members: Family Household Members Other:: Sister Housing: House Are you a primary palliative care coordinator to a significant other at home: No Do you presently have visiting nurse or other home services: No Unable to assess alcohol history related to: Unknown Alcohol intake: never Comment: Remain w/ pt on commode. Patient Tobacco Use Status: Never used Tobacco Smoked in Last 30 Days: No e-Cigarette/Vaping Use: Never Used Second Hand Smoke Exposure: No Use of substances other than those prescribed or required for medical reasons: No Advance Directives: Yes Advance Directives on File: Yes Advance Directives Date on File: 09/04/23 Do you have a plan to hurt others: No Plan Patient : No service: No Current occupational status: unemployed and disabled Gender identity: Female Physical Exam ED Vital Signs: Vital Signs - 24 hr 03/08/24 21:11 03/09/24 00:45 03/09/24 04:30 Temperature 97.7 F 97.6 F 97.8 F Pulse Rate 93 87 92 Respiratory Rate 16 14 20 Blood Pressure 193/102 H 176/95 H 184/103 H Pulse Oximetry 96 96 97 Oxygen Delivery Method Room Air Room Air Room Air Oxygen Flow Rate 03/09/24 06:25 03/09/24 07:55 03/09/24 08:00 Temperature Pulse Rate 89 97 Respiratory Rate 14 16 Blood Pressure 177/97 H Pulse Oximetry 88 L 95 Oxygen Delivery Method Aerosol Mask Nasal Cannula Oxygen Flow Rate 6 3 BMI result Body Mass Index 29.1 Const Other: Appearance: Alert. Oriented X3. No acute distress. Eyes: Pupils equal, round and reactive to light. ENT: Pharynx normal. Neck: Normal inspection. Neck supple. No lymph nodes noted. No crepitus CVS: Normal heart rate and rhythm. Pulses normal. Normal S1 and S2 Respiratory: No respiratory distress. Breath sounds normal. No Wheezing. No rales Abdomen: Soft and nontender. No rigidity. No distention. Skin: Patient has chronic skin ulcers in both lower extremities. Patient has a right BKA. Looks clean, no necrotic tissue, no signs of infection. This is a chronic ulcer on the left foot. None of the injuries look infected. Extremities: No lower extremity edema. No Lacerations. No Rash Neuro: Oriented X 3. No motor deficit. No sensory deficit. Moving all extremities. No slurred speech. CN 2 through 12 grossly intact Psych: calm, cooperative, anxious Course Reevaluation(s) Reevaluation #1: The patient was seen by Dr. Pal overnight signed out to me at 07:00 with a plan to discharge her if they K was better, the K result is now 5. I also consulted with furniture upholstery mechanic Dr Sara pearson to discharge, patient was not given any IV narcotic Time: 10:06 Medications Administered Discontinued Medications Generic Name Dose Route Start Last Admin Trade Name Momoq PRN Reason Stop Dose Admin Albuterol Sulfate 10 mg 03/09/24 06:02 03/09/24 06:20 Albuterol Sulfate (0.083%) 2.5 Mg/3 Ml Vial.Neb INHALE 03/09/24 06:03 10 mg ONCE ONE Administration Carvedilol 12.5 mg 03/09/24 05:57 03/09/24 06:30 Carvedilol 12.5 Mg Tablet PO 03/09/24 05:58 Not Given ONCE ONE Protocol Diphenhydramine HCl 25 mg 03/09/24 08:44 03/09/24 08:51 Diphenhydramine Hcl 50 Mg/Ml Vial IVPUSH 03/09/24 08:45 25 mg ONCE ONE Administration Hydralazine HCl 50 mg 03/09/24 05:57 03/09/24 06:31 Hydralazine Hcl 50 Mg Tablet PO 03/09/24 05:58 Not Given ONCE ONE Protocol Hydromorphone HCl 2 mg 03/09/24 08:44 03/09/24 08:52 Hydromorphone Hcl 2 Mg Tablet PO 03/09/24 08:45 2 mg ONCE ONE Administration Calcium Gluconate 2 gm in 100 mls @ 50 mls/hr 03/09/24 06:02 03/09/24 09:41 Calcium Gluconate IV 03/09/24 08:01 Infused ONCE ONE Infusion Insulin Human Regular 5 unit 03/09/24 07:34 03/09/24 09:43 Insulin Regular, Human 100 Unit/Ml 10 Ml Vial IVPUSH 03/09/24 07:35 5 unit ONCE ONE Administration Iohexol 100 ml 03/09/24 08:43 03/09/24 08:44 Iohexol 350 Mg/Ml 100 Ml Infus..Btl IV 03/09/24 08:44 85 ml ONCE ONE Administration Ondansetron HCl 4 mg 03/09/24 06:16 03/09/24 06:30 Ondansetron Hcl 4 Mg/2 Ml Vial IVPUSH 03/09/24 06:17 Not Given ONCE ONE Oxycodone HCl 15 mg 03/09/24 05:57 03/09/24 06:47 Oxycodone Hcl Immed Release 15 Mg Tablet PO 03/09/24 05:58 15 mg ONCE ONE Administration Prochlorperazine Edisylate 10 mg 03/09/24 06:18 03/09/24 06:29 Prochlorperazine Edisylate 10 Mg/2 Ml Vial IVPUSH 03/09/24 06:19 10 mg ONCE ONE Administration Sodium Bicarbonate 50 meq 03/09/24 06:02 03/09/24 06:29 Sodium Bicarbonate 8.4% 50 Meq/50 Ml Syringe IVPUSH 03/09/24 06:03 50 meq ONCE ONE Administration Sodium Zirconium Cyclosilicate 10 gm 03/09/24 08:30 03/09/24 08:54 Sodium Zirconium Cyclosilicate 10 Gm Powd.Pack PO 03/09/24 08:31 10 gm ONCE ONE Administration Medical Decision Making Medical Decision Making MDM Narrative: My interpretation of labs: Patient's white blood cell count 7.0 Lab Data 03/09/24 03:59 03/09/24 07:59 Labs: Lab Results 03/09/24 03/09/24 03/09/24 Range/Units 03:58 03:59 07:59 WBC 7.0 (4.8-10.8) X10*3/uL RBC 2.53 L (4.20-5.50) X10*6/uL Hgb 7.5 L (12.0-16.0) g/dl Hct 22.8 L (37.0-47.0) % MCV 90.1 (80.0-98.0) fL MCH 29.6 (27.0-33.0) pg MCHC 32.9 (31.0-35.0) g/dl RDW 15.9 (11.0-16.0) % Plt Count 181 (160-400) X10*3/uL MPV 11.5 (9.4-12.3) fL Immature Gran % (Auto) 0.3 (0.0-0.4) % Neut % (Auto) 79.3 H (45-73) % Lymph % (Auto) 8.7 L (20-40) % [place] % (Auto) 8.1 (2-11) % Eos % (Auto) 3.0 (0-4) % Baso % (Auto) 0.6 (0-2) % Lymph # (Auto) 0.6 L (1.2-4.9) X10*3/uL [place] # (Auto) 0.6 (0.1-1.2) X10*3/uL Eos # (Auto) 0.2 (0.0-0.4) X10*3/uL Baso # (Auto) 0.0 (0.0-0.2) X10*3/uL Abs Immat Gran (auto) 0.02 (0.00-0.03) X10*3/uL Absolute Neuts (auto) 5.6 (2.0-8.3) x10*3/uL Absolute Nucleated RBC 0.000 (0.0-0.012) X10*3/uL Nucleated RBC % (auto) 0.0 (0.0-0.2) /100WBC Sodium 136 (135-145) mmol/L Potassium 5.5 H D 5.0 (3.3-5.1) mmol/L Chloride 105 (96-108) mmol/L Carbon Dioxide 17 L (22-29) mmol/L Anion Gap 20 (12-20) BUN 89 H (9-16) mg/dL Creatinine 7.54 H* (0.5-1.4) mg/dL Estim Creat Clear Calc 11.2 Estimated GFR 6 Random Glucose 113 (60-115) mg/dL Calcium 8.0 L (8.4-10.2) mg/dL Urine Color Yellow Urine Appearance Clear Urine pH 6.5 (5.0-9.0) Ur Specific [place] 1.020 (1.005-1.025) Urine Protein >=1000 (4+) H (Neg-Trace) mg/dL Urine Glucose (UA) 500 H (Negative) mg/dL Urine Ketones Negative (Negative) mg/dL Urine Blood Negative (Negative) Urine Nitrite Negative (Negative) Ur Leukocyte Esterase Negative (Negative) Urine RBC 0-2 (0-2) /HPF Urine WBC 0-5 (0-5) /HPF Ur Squamous Epith Cells 0-2 (0-2) /HPF Urine Bacteria None Seen (None Seen) Hyaline Casts 0-2 (0-2) /LPF Discharge Plan Discharge Clinical Impression: Chronic hypertension, Acute urinary retention Chronic pain Qualifiers: Chronic pain type: chronic pain syndrome Qualified Code(s): G89.4 - Chronic pain syndrome Patient Disposition: Home, Self-Care Instructions: Chronic Pain (ED), Chronic Hypertension (ED), Chronic Hypertension (DC), Chronic Urinary Retention in Women (ED) Additional Instructions: Please follow-up with your primary care physician tomorrow. If you have any worsening or new symptoms, please return to the emergency room or call 911 Prescriptions: No Action carvedilol 12.5 mg Tablet 12.5 mg PO BID 90 Days Qty: 180 0RF Protocol: Hold for SBP/HR < HOLD for SBP < : 90 HOLD for HR < : 60 hydralazine 50 mg Tablet 50 mg PO TID 90 Days Qty: 270 0RF Protocol: Hold for SBP< HOLD for SBP < : 90 lidocaine 5 % adhesive patch,medicated 1 patch topical DAILY nitroglycerin 0.4 mg tablet, sublingual 0.4 mg sublingual DIRECTED PRN (Reason: Angina) albuterol sulfate [Ventolin HFA] 90 mcg/actuation HFA aerosol inhaler 2 puff inhalation Q6H PRN (Reason: wheezing) oxycodone 10 mg tablet 10 mg PO Q6H PRN (Reason: pain) Qty: 20 0RF Rx Instructions: Partial Fill upon patient request. tamsulosin 0.4 mg Capsule 0.8 mg PO BEDTIME Qty: 30 0RF cefazolin in dextrose (iso-os) 2 gram/50 mL Piggyback 50 ml IV TuThSa@1800 Rx Instructions: END DATE: 04/03/24 Referrals: Courtney Mcgarry MD [Physician] - 03/12/24 Fernando Siddiqi MD [Physician] - 03/10/24 Print Language: Haitian
--- NOTE | 2024-03-09 03:30 | PC.NURSE ---
Bladder scan: 385cc
[2024-03-09 04:05] LABS: Basophils Percent Auto 0.6 % (0-2); Eosinophils Absolute Auto 0.2 X10*3/uL (0.0-0.4); Hematocrit 22.8 % (37.0-47.0); Hemoglobin 7.5 g/dl (12.0-16.0); Imm Gran Abs Auto 0.02 X10*3/uL (0.00-0.03); Imm Gran Pct Auto 0.3 % (0.0-0.4); Lymphocytes Absolute Auto 0.6 X10*3/uL (1.2-4.9); Lymphocytes Percent Auto 8.7 % (20-40); MANUAL DIFF FLAG NO; Mean Corpuscular HGB Conc 32.9 g/dl (31.0-35.0); Mean Corpuscular Hemoglobin 29.6 pg (27.0-33.0); Mean Corpuscular Volume 90.1 fL (80.0-98.0); Mean Platelet Volume 11.5 fL (9.4-12.3); Monocytes Absolute Auto 0.6 X10*3/uL (0.1-1.2); Monocytes Percent Auto 8.1 % (2-11); Neutrophils Absolute Auto 5.6 x10*3/uL (2.0-8.3); Neutrophils Percent Auto 79.3 % (45-73); Platelet Count 181 X10*3/uL (160-400); Red Blood Count 2.53 X10*6/uL (4.20-5.50); Red Cell Distribution Width 15.9 % (11.0-16.0)
[2024-03-09 04:06] LABS: Appearance Urine Clear; Color Urine Yellow; Glucose Urine UA 500 mg/dL (Negative); Leukocyte Esterase Urine Negative (Negative); Nitrite Urine Negative (Negative); PH 6.5 (5.0-9.0); UMIC TRIGGER UACC YES; Urine Blood Negative (Negative); Urine Ketones Negative (Negative); Urine Protein >=1000 (4+) mg/dL (Neg-Trace)
[2024-03-09 04:15] LABS: Bacteria Urine None Seen (None Seen); Hyaline Casts Urine 0-2 /LPF (0-2); RBC Urine 0-2 /HPF (0-2); Squamous Epithelial Cell Urine 0-2 /HPF (0-2); WBC Urine 0-5 /HPF (0-5)
[2024-03-09 04:20] LABS: Anion Gap 20 (12-20); Blood Urea Nitrogen 89 mg/dL (9-16); Carbon Dioxide 17 mmol/L (22-29); Chloride 105 mmol/L (96-108); Creatinine Clr Calc Pharmacy 11.2; Estimated Glomerular Filt Rate 6; Glucose Random 113 mg/dL (60-115); Potassium 5.5 mmol/L (3.3-5.1); Sodium 136 mmol/L (135-145)
[2024-03-09 04:30] VITALS: BP 184/103; PULSE 92; RESP 20; TEMP 36.6; O2SAT 97
--- NOTE | 2024-03-09 06:14 | ECG_ITS ---
Test Reason : [place] Blood Pressure : */* mmHG Vent. Rate : 92 BPM Atrial Rate : 92 BPM P-R Int : 166 ms QRS Dur : 144 ms QT Int : 436 ms P-R-T Axes : 48 -21 51 degrees QTcB Int : 539 ms Normal sinus rhythm Right bundle branch block Abnormal ECG When compared with ECG of 24-Feb-2024 21:48, Nonspecific T wave abnormality has replaced inverted T waves in Lateral leads Referred By: Helen Pal Electronically Signed By: JASKARAN COOL
[2024-03-09] MEDS: Albuterol Sulfate (0.083%) 2.5 MG/3 ML VIAL.NEB 10 MG INHALE (06:20)
[2024-03-09 06:25] VITALS: PULSE 89; RESP 14; O2SAT 97
[2024-03-09] MEDS: Prochlorperazine Edisylate 10 MG/2 ML VIAL IVPUSH (06:29)
[2024-03-09] MEDS: Sodium Bicarbonate 8.4% 50 MEQ/50 ML SYRINGE IVPUSH (06:29)
[2024-03-09] MEDS: Calcium Gluconate/NaCl,Iso-Osm 2 GM/100 ML PLAST..BAG IV (06:29)
[2024-03-09] MEDS: oxyCODONE HCl Immed Release 15 MG TABLET PO (06:47)
[2024-03-09 07:55] VITALS: BP 177/97; PULSE 97; RESP 16; O2SAT 88
[2024-03-09 08:00] VITALS: O2SAT 95
[2024-03-09] MEDS: iohexoL 350 MG/ML 100 ML INFUS..BTL IV (08:44)
[2024-03-09] MEDS: diphenhydrAMINE HCL 50 MG/ML VIAL 25 MG IVPUSH (08:51)
[2024-03-09] MEDS: HYDROmorphone HCl 2 MG TABLET PO (08:52)
[2024-03-09] MEDS: Sodium Zirconium Cyclosilicate 10 GM POWD.PACK PO (08:54)
--- NOTE | 2024-03-09 09:04 | PHA.MEDREC ---
Pharmacy Consult ? Medication Reconciliation Pharmacy has completed the medication reconciliation. Patient recently discharged 03/04/24. Utilized discharge packet to confirm meds. Cefazolin written to end 04/03/24.
[2024-03-09] MEDS: Insulin Regular, Human 100 UNIT/ML 10 ML VIAL IVPUSH (09:43)
== END 2024-03-09 13:30 | disposition home or self-care (01) ==
PROVIDERS: Emergency Medicine; Emergency Provider Emergency Medicine; PCP Student in an Organized Health Care Education/Training Program
DX: G89.4 Chronic pain syndrome (principal); R33.9 Retention of urine, unspecified; E11.22 Type 2 diabetes mellitus with diabetic chronic kidney disease; I13.2 Hypertensive heart and chronic kidney disease with heart failure and with stage 5 chronic kidney disease, or end stage renal disease; I50.20 Unspecified systolic (congestive) heart failure; N18.6 End stage renal disease; Z99.2 Dependence on renal dialysis; Z91.158 Patient's noncompliance with renal dialysis for other reason; Z79.899 Other long term (current) drug therapy
CPT/HCPCS: 36415; 71045; 73620; 74177; 80048; 81001; 84132; 85025; 93005; 94640; 96365; 96366; 96375; 99284; 99285; J0613; J0737; J1200; Q9967

== ENCOUNTER → 2024-03-09 03:00 | Outpatient (BNV) | payer OTHER, SELFPAY | PROVIDERS: PCP Student in an Organized Health Care Education/Training Program; Visit Provider Specialist | DX: R16.2 Hepatomegaly with splenomegaly, not elsewhere classified (principal); R56.9 Unspecified convulsions; M79.671 Pain in right foot | CPT/HCPCS: 71045; 73620; 74177 ==

== ENCOUNTER → 2024-03-09 06:14 | Outpatient (BNV) | payer OTHER, SELFPAY | PROVIDERS: Emergency Provider Emergency Medicine; PCP Student in an Organized Health Care Education/Training Program; Visit Provider Internal Medicine | DX: R94.31 Abnormal electrocardiogram [ECG] [EKG] (principal) | CPT/HCPCS: 93010 ==

== ENCOUNTER 2024-03-10 17:25 | Observation (INO) | payer OTHER, SELFPAY ==
[2024-03-10] VITALS (10 sets, daily range): BP systolic 156–191; BP diastolic 80–104; PULSE 92–106; RESP 16–20; O2SAT 90–99; BMI 27.6
--- NOTE | ~2024-03-10 | CT_ITS ---
CLINICAL HISTORY: seizure, htn CT head without contrast Comparison: CT/REG/SR - CT HEAD/BRAIN WO IV CON - 06/04/23 15:10 EDT Findings: There is artifact in the right posterolateral parenchyma causing relative hypodensity. Within this limitation, no intra-axial mass, midline shift, hydrocephalus, or acute hemorrhage. 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 ( series 2, image 15/50 ) Mild diffuse volume loss. Intracranial atherosclerosis. Postsurgical changes in the right globe. Bilateral retinal hemorrhages increased in extent on the right when compared to prior. Mild mucosal thickening in the right maxillary sinus. There is no acute fracture. IMPRESSION: 1. 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 ( series 2, image 15/50 ) 2. Bilateral retinal hemorrhages, increased on the right. This document has been electronically signed by: Marquita Pimentel MD on 03/10/2024 20:59:36
--- NOTE | ~2024-03-10 | XR_ITS ---
CLINICAL HISTORY: sob 1 view chest x-ray Comparison: CR - XR CHEST 1V - 03/09/24 03:10 EST CR - XR CHEST 1V - 02/24/24 21:35 EST Findings: No consolidation, pleural effusion or pneumothorax. Stable cardiomegaly. Left IJ central venous catheter tip is at the cavoatrial junction. No acute fracture. IMPRESSION: 1. No acute cardiopulmonary findings. 2. Appropriately positioned left IJ central venous catheter. This document has been electronically signed by: Marquita Pimentel MD on 03/10/2024 18:24:03
--- NOTE | 2024-03-10 17:36 | ED_ITS ---
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 Pain and hyperkalemia patient is supposed to be on 4 L oxygen 24 hours does not have the oxygen for last 4 -5 days as the company took her oxygen tank away waiting for the new prescription been saturating in 70s at home today while in the car she was feeling short of breath and she had is short lasting seizure <1 min when EMS arrived patient is saturating 80% at room air patient does have a remote history of seizure not taking any medication patient's remembering up rolling of the eyes family noticed shaking movement for less than 1 minute patient was not postictal when EMS arrived Related Data Home Medications ?Medication ?Instructions ?Recorded ?Confirmed albuterol sulfate 90 mcg/actuation 2 puff inhalation Q6H PRN wheezing 01/15/24 03/09/24 aerosol inhaler (Ventolin HFA) lidocaine 5 % topical patch 1 patch topical DAILY 01/15/24 03/09/24 nitroglycerin 0.4 mg sublingual 0.4 mg sublingual DIRECTED PRN 01/15/24 03/09/24 tablet Angina Previous Rx's ?Medication ?Instructions ?Recorded carvedilol 12.5 mg tablet 12.5 mg PO BID 90 days #180 tabs 12/16/23 hydralazine 50 mg tablet 50 mg PO TID 90 days #270 tabs 12/16/23 oxycodone 10 mg tablet 10 mg PO Q6H PRN pain #20 tabs 11/30/24 cefazolin 2 gram/50 mL in dextrose 50 ml IV TuThSa@1800 03/04/24 (iso-osmotic) intravenous piggyback tamsulosin 0.4 mg capsule 0.8 mg (2 x 0.4 mg) PO BEDTIME #30 03/04/24 caps Allergies Allergy/AdvReac Type Severity Reaction Status Date / Time morphine [MORPHINE] Allergy Intermediate Itching Verified 03/10/24 17:48 azithromycin [From Zithromax] Allergy Hives Verified 03/10/24 17:48 gabapentin Allergy Facial Verified 03/10/24 17:48 Swelling tramadol Allergy Facial Verified 03/10/24 17:48 Swelling vancomycin Allergy Anaphylaxis Verified 03/10/24 17:48 Review of Systems 2 Review of Systems: Yes all other systems are reviewed and are negative [facility] Past Medical History Medical History Hypertensive emergency Non-compliance with renal dialysis Decompensated heart failure Congestive heart failure Renal failure Hypertension, uncontrolled Medical non-compliance Pericarditis Unspecified hypertension, condition or complication Metabolic acidosis Gastroparesis End stage chronic kidney disease Chronic kidney disease Anemia Chronic foot ulcer Plantar ulcer of left foot Major depressive disorder, single episode, severe ESRD (end stage renal disease) Non-compliance with renal dialysis Hypertensive urgency MDD (major depressive disorder), recurrent episode MDD (major depressive disorder) Renal failure Foot ulcer CKD (chronic kidney disease) Hypertension Diabetic foot Hyperkalemia Vomiting Renal failure Hypertension Migraine Chronic pain ESRD on dialysis Non-compliance with renal dialysis Hypertension End-stage renal disease (ESRD) Diabetic foot ulcer associated with type 2 diabetes mellitus Diabetes ESRD needing dialysis Cardiomyopathy HFrEF (heart failure with reduced ejection fraction) delivery delivered Anemia in chronic kidney disease (CKD) CKD (chronic kidney disease) Headache, migraine Abnormal finding on echocardiogram Elevated troponin Chest pain Acute worsening of stage 3 chronic kidney disease Generalized edema Sepsis Cellulitis Pleural effusion CHF (congestive heart failure) (~06/07/22) Tachycardia Atypical chest pain Bone infection PAD (peripheral artery disease) Severe anemia Cellulitis and abscess of foot DM foot ulcer Osteomyelitis Asthma Depression with anxiety Diabetic retinopathy Type 2 diabetes mellitus with hyperglycemia, with long-term current use of insulin Blind right eye Diabetes Back pain Surgical History Tubal ligation status Previous section Hx laparoscopic cholecystectomy Hx of surgical procedure (~09/11/23) 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 Family History Family History Mother Coronary artery disease Myocardial infarction Stroke Diabetes mellitus Father Myocardial infarction Social History Social History Household Members: Family Household Members Other:: Sister Housing: House Are you a primary adult care provider to a significant other at home: No Do you presently have visiting nurse or other home services: No Unable to assess alcohol history related to: Unknown Alcohol intake: never Comment: Remain w/ pt on commode. Patient Tobacco Use Status: Never used Tobacco Smoked in Last 30 Days: No e-Cigarette/Vaping Use: Never Used Second Hand Smoke Exposure: No Use of substances other than those prescribed or required for medical reasons: No Advance Directives: Yes Advance Directives on File: Yes Advance Directives Date on File: 09/04/23 service: No Current occupational status: unemployed and disabled Gender identity: Female Physical Exam 2 Vital Signs: Vital Signs: Last Vital Signs Pulse 93 03/10/24 21:35 Resp 18 03/10/24 21:35 BP 175/91 H 03/10/24 23:41 Pulse Ox 97 03/10/24 21:59 O2 Del Method Room Air 03/10/24 21:59 O2 Flow Rate 2 03/10/24 20:56 Oxygen Flow Rate 10 03/10/24 17:41 BMI result Body Mass Index 27.6 Appearance: Alert. Oriented X3. No acute distress. Eyes: Legally blind with a opacified cornea ENT: Pharynx normal. Oral Mucosa moist Neck: Normal inspection. Neck supple. CVS: Normal heart rate and rhythm. Pulses normal. Respiratory: Mild respiratory distress. Equal air entry bilateral, no wheezing/rales/rhonchi Abdomen: Soft and nontender. Bowel sounds are present, no mass palpable, no CVA tenderness Skin: Skin warm and dry. Normal skin color. Normal skin turgor. Extremities: No lower extremity edema. No calf tenderness bilateral metatarsal amputation Neuro: Oriented X 3. Medications Administered Discontinued Medications Generic Name Dose Route Start Last Admin Trade Name Freq PRN Reason Stop Dose Admin Albuterol/Ipratropium 3 ml 03/10/24 20:55 03/10/24 21:12 Albuterol/Iprat 2.5/0.5mg 3 Ml Ampul.Neb INHALE 03/10/24 20:56 3 ml ONCE ONE Administration Dextrose 25 gm 03/10/24 23:45 03/10/24 23:40 Dextrose 50 % 25 Gm/50 Ml Syringe IVPUSH 03/10/24 23:46 25 gm ONCE ONE Administration Diphenhydramine HCl 25 mg 03/10/24 19:23 03/10/24 19:34 Diphenhydramine Hcl 50 Mg/Ml Vial IVPUSH 03/10/24 19:24 25 mg ONCE ONE Administration Hydralazine HCl 10 mg 03/10/24 17:58 03/10/24 18:21 Hydralazine Hcl 20 Mg/Ml Vial IVPUSH 03/10/24 17:59 10 mg ONCE ONE Administration Protocol Hydralazine HCl 10 mg 03/10/24 23:01 03/10/24 23:41 Hydralazine Hcl 20 Mg/Ml Vial IVPUSH 03/10/24 23:02 10 mg ONCE ONE Administration Protocol Hydromorphone HCl 2 mg 03/10/24 19:13 03/10/24 19:34 Hydromorphone Hcl 2 Mg/Ml Vial IVPUSH 03/10/24 19:14 2 mg ONCE ONE Administration Protocol Calcium Gluconate 2 gm in 100 mls @ 50 mls/hr 03/10/24 19:13 03/10/24 23:28 Calcium Gluconate IV 03/10/24 21:12 Infused ONCE ONE Infusion Insulin Human Regular 5 unit 03/10/24 22:51 03/10/24 23:41 Insulin Regular, Human 100 Unit/Ml 10 Ml Vial IVPUSH 03/10/24 22:52 5 unit ONCE ONE Administration Ondansetron HCl 4 mg 03/10/24 19:07 03/10/24 19:34 Ondansetron Hcl 4 Mg/2 Ml Vial IVPUSH 03/10/24 19:08 4 mg ONCE ONE Administration Prochlorperazine Edisylate 10 mg 03/10/24 20:46 03/10/24 21:19 Prochlorperazine Edisylate 10 Mg/2 Ml Vial IVPUSH 03/10/24 20:47 10 mg ONCE ONE Administration Sodium Zirconium Cyclosilicate 10 gm 03/10/24 19:13 03/10/24 21:20 Sodium Zirconium Cyclosilicate 10 Gm Powd.Pack PO 03/10/24 19:14 10 gm ONCE ONE Administration Medical Decision Making Medical Decision Making [facility] Narrative: Patient is 33 years old with end-stage renal disease on dialysis due sentences with remote history of seizure supposed to be on 4 L oxygen at home not have any oxygen since 12/19 but saturating 94% at room air comes here for hypoxia in small seizure like activity with elevated blood pressure CT scan of the head is negative for acute noted to have patient's have hyperkalemia with potassium 5.9 no acute EKG changes patient's potassium stayed elevated after medications will admit patient for dialysis in a.m. Differential Diagnosis Differential Diagnoses: The differential diagnosis associated with the presentation includes Admission/Observation Consideration of admission/observation: Escalation of care including admission/observation considered Consult Healthcare Provider Management of the patient was discussed with: Hospitalist Lab Data [facility] Lab Attestation statement: I reviewed the patient's lab results. 03/10/24 18:14 03/10/24 22:23 Labs: Lab Results 03/10/24 03/10/24 03/10/24 Range/Units 18:14 18:21 22:23 WBC 7.1 (4.8-10.8) X10*3/uL RBC 2.52 L (4.20-5.50) X10*6/uL Hgb 7.4 L (12.0-16.0) g/dl Hct 22.9 L (37.0-47.0) % MCV 90.9 (80.0-98.0) fL MCH 29.4 (27.0-33.0) pg MCHC 32.3 (31.0-35.0) g/dl RDW 16.0 (11.0-16.0) % Plt Count 204 (160-400) X10*3/uL MPV 11.4 (9.4-12.3) fL Immature Gran % (Auto) 0.4 (0.0-0.4) % Neut % (Auto) 81.4 H (45-73) % Lymph % (Auto) 7.4 L (20-40) % [place] % (Auto) 8.2 (2-11) % Eos % (Auto) 1.6 (0-4) % Baso % (Auto) 1.0 (0-2) % Lymph # (Auto) 0.5 L (1.2-4.9) X10*3/uL [place] # (Auto) 0.6 (0.1-1.2) X10*3/uL Eos # (Auto) 0.1 (0.0-0.4) X10*3/uL Baso # (Auto) 0.1 (0.0-0.2) X10*3/uL Abs Immat Gran (auto) 0.03 (0.00-0.03) X10*3/uL Absolute Neuts (auto) 5.8 (2.0-8.3) x10*3/uL Absolute Nucleated RBC 0.000 (0.0-0.012) X10*3/uL Nucleated RBC % (auto) 0.0 (0.0-0.2) /100WBC PT 15.6 H (10.9-12.4) SEC INR 1.3 H (0.9-1.1) VBG pH 7.42 (7.32-7.43) VBG pCO2 27 mmHg VBG pO2 118 mmHg VBG HCO3 18 L (22-26) mmol/L VBG O2 Saturation 99.0 % VBG Base Excess -5.3 mmol/L Sodium 137 136 (135-145) mmol/L Potassium 5.9 H 5.9 H (3.3-5.1) mmol/L Chloride 102 103 (96-108) mmol/L Carbon Dioxide 17 L 16 L (22-29) mmol/L Anion Gap 24 H 23 H (12-20) BUN 106 H (9-16) mg/dL Creatinine 8.28 H* (0.5-1.4) mg/dL Estim Creat Clear Calc 9.9 Estimated GFR 6 Random Glucose 115 (60-115) mg/dL Calcium 8.1 L (8.4-10.2) mg/dL Total Bilirubin 1.2 H (0.0-1.0) mg/dL AST 28 (5-31) U/L ALT < 6 (0-31) U/L Alkaline Phosphatase 246 H (39-117) U/L Total Protein 7.8 (6.5-8.0) g/dL Albumin 3.6 (3.5-5.0) g/dL Influenza Type A (PCR) NEGATIVE (Negative) Influenza Type B (PCR) NEGATIVE (Negative) RSV RNA Qual (PCR) NEGATIVE (Negative) SARS-CoV-2 RNA (RT-PCR) NEGATIVE (Negative) Independent Interpretation I performed an independent interpretation of an: EKG Interpretation: Normal sinus rhythm heart rate 90 beats per minute right bundle-branch block no acute ST-T no acute ischemia Critical Care Time Critical Care Time Critical Care Time: Yes Total Critical Care Time: 60 Attestation: The patient was critically ill with a high probability of imminent or life threatening deterioration. I spent greater than65 ???minutes of discontinuous time evaluating the patient,delivering critical care at the bedside, discussing and evaluating pertinent data with consultants. Critical care time does not include time spent performing separately billable procedures or teaching. Total time spent performing critical care was 60???minutes. Discharge Plan Discharge Clinical Impression: Acute hyperkalemia, End stage renal disease on dialysis, Hypoxia, Seizure Patient Disposition: Admitted As Inpatient
[2024-03-10 18:20] LABS: MANUAL DIFF FLAG NO
[2024-03-10] MEDS: hydrALAZINE HCl 20 MG/ML VIAL 10 MG IVPUSH ×2 (18:21→23:41)
[2024-03-10 18:22] LABS: Basophils Absolute Auto 0.1 X10*3/uL (0.0-0.2); Eosinophils Absolute Auto 0.1 X10*3/uL (0.0-0.4); Eosinophils Percent Auto 1.6 % (0-4); Hematocrit 22.9 % (37.0-47.0); Hemoglobin 7.4 g/dl (12.0-16.0); Imm Gran Abs Auto 0.03 X10*3/uL (0.00-0.03); Imm Gran Pct Auto 0.4 % (0.0-0.4); Lymphocytes Absolute Auto 0.5 X10*3/uL (1.2-4.9); Lymphocytes Percent Auto 7.4 % (20-40); Mean Corpuscular HGB Conc 32.3 g/dl (31.0-35.0); Mean Corpuscular Hemoglobin 29.4 pg (27.0-33.0); Mean Corpuscular Volume 90.9 fL (80.0-98.0); Mean Platelet Volume 11.4 fL (9.4-12.3); Monocytes Absolute Auto 0.6 X10*3/uL (0.1-1.2); Monocytes Percent Auto 8.2 % (2-11); Neutrophils Absolute Auto 5.8 x10*3/uL (2.0-8.3); Neutrophils Percent Auto 81.4 % (45-73); Platelet Count 204 X10*3/uL (160-400); Red Blood Count 2.52 X10*6/uL (4.20-5.50); White Blood Count 7.1 X10*3/uL (4.8-10.8)
[2024-03-10 18:25] LABS: Venous Blood Gas Refer to POC result
[2024-03-10 18:26] LABS: VBG Base Excess -5.3 mmol/L; VBG HCO3 18 mmol/L (22-26); VBG pCO2 27 mmHg; VBG pH 7.42 (7.32-7.43); VBG pO2 118 mmHg
[2024-03-10 18:30] LABS: INTERNATIONAL NORM RATIO 1.3 (0.9-1.1); Prothrombin Time 15.6 SEC (10.9-12.4)
--- NOTE | 2024-03-10 18:50 | PC.RT ---
Pt trialed off of O2. On RA, SATs 92% at rest. aware.
[2024-03-10 18:51] LABS: Alanine Aminotransferase < 6 U/L (0-31); Albumin Level 3.6 g/dL (3.5-5.0); Alkaline Phosphatase 246 U/L (39-117); Anion Gap 24 (12-20); Aspartate Amino Transferase 28 U/L (5-31); Bilirubin Total 1.2 mg/dL (0.0-1.0); Blood Urea Nitrogen 106 mg/dL (9-16); Calcium 8.1 mg/dL (8.4-10.2); Carbon Dioxide 17 mmol/L (22-29); Chloride 102 mmol/L (96-108); Creatinine Clr Calc Pharmacy 9.9; Estimated Glomerular Filt Rate 6; Glucose Random 115 mg/dL (60-115); Potassium 5.9 mmol/L (3.3-5.1); Sodium 137 mmol/L (135-145); Total Protein 7.8 g/dL (6.5-8.0)
[2024-03-10 19:10] LABS: Influenza A PCR NEGATIVE (Negative); Influenza B PCR NEGATIVE (Negative); Resp Syncy Virus RNA Qual PCR NEGATIVE (Negative); SARS COV2 PCR INHOUSE NEGATIVE (Negative)
[2024-03-10] MEDS: HYDROmorphone HCl 2 MG/ML VIAL IVPUSH (19:34)
[2024-03-10] MEDS: diphenhydrAMINE HCL 50 MG/ML VIAL 25 MG IVPUSH (19:34)
[2024-03-10] MEDS: Calcium Gluconate/NaCl,Iso-Osm 2 GM/100 ML PLAST..BAG IV (19:34)
[2024-03-10] MEDS: ondansetron HCL 4 MG/2 ML VIAL IVPUSH (19:34)
--- NOTE | 2024-03-10 21:06 | PC.NURSE ---
patient vomited a large amount of brown, undigested food onto the floor. physician aware and new orders given.
[2024-03-10] MEDS: Albuterol/Iprat 2.5/0.5MG 3 ML AMPUL.NEB INHALE (21:12)
[2024-03-10] MEDS: Prochlorperazine Edisylate 10 MG/2 ML VIAL IVPUSH (21:19)
[2024-03-10] MEDS: Sodium Zirconium Cyclosilicate 10 GM POWD.PACK PO (21:20)
[2024-03-10 22:40] LABS: Anion Gap 23 (12-20); Carbon Dioxide 16 mmol/L (22-29); Chloride 103 mmol/L (96-108); Potassium 5.9 mmol/L (3.3-5.1); Sodium 136 mmol/L (135-145)
--- NOTE | 2024-03-10 23:00 | ECG_ITS ---
Test Reason : HYPERKALEMIA Blood Pressure : */* mmHG Vent. Rate : 90 BPM Atrial Rate : 90 BPM P-R Int : 170 ms QRS Dur : 156 ms QT Int : 460 ms P-R-T Axes : 37 -12 35 degrees QTcB Int : 562 ms Normal sinus rhythm Right bundle branch block Abnormal ECG When compared with ECG of 09-Mar-2024 07:01, No significant change was found Referred By: Mazin Rubalcava Electronically Signed By: Vinny Vera
[2024-03-10] MEDS: Dextrose 50 % 25 GM/50 ML SYRINGE IVPUSH (23:40)
[2024-03-10] MEDS: Insulin Regular, Human 100 UNIT/ML 10 ML VIAL IVPUSH (23:41)
--- NOTE | 2024-03-10 23:48 | PC.NURSE ---
Took over care from KIRIT Field at 23:00, medicated per apr.
[2024-03-11] VITALS (9 sets, daily range): BP systolic 131–200; BP diastolic 67–106; PULSE 73–88; RESP 14–18; TEMP 35.8–36.7; O2SAT 95–97
--- NOTE | 2024-03-11 00:04 | PM.IMHP ---
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 Patient missed her dialysis session on 03/08. Her last dialysis session was 03/06. Patient states she was without her home oxygen as the oxygen tank was taken away by the company without replacing 1. She was satting low as per EMS. Denies fever, chills, palpitations, abdominal pain. In the emergency department, patient was found to have hyperkalemia and given calcium gluconate, IV insulin, DuoNebs and Lokelma. Patient maintaining normal oxygen saturation on room air Of note, patient was recently admitted for MSSA bacteremia secondary to catheter infection. She was discharged on IV Kefzol 2 g on 03/04. Review of Systems Constitutional: Constitutional: Reports fatigue, Reports malaise, Reports poor appetite and Reports weakness Cardiovascular: Cardiovascular: Reports dyspnea Respiratory: Respiratory: Reports dyspnea Neurologic: Reports weakness Endocrine: Endocrine: Reports fatigue [facility] Medical History Hypertensive emergency Non-compliance with renal dialysis Decompensated heart failure Congestive heart failure Renal failure Hypertension, uncontrolled Medical non-compliance Pericarditis Unspecified hypertension, condition or complication Metabolic acidosis Gastroparesis End stage chronic kidney disease Chronic kidney disease Anemia Chronic foot ulcer Plantar ulcer of left foot Major depressive disorder, single episode, severe ESRD (end stage renal disease) Non-compliance with renal dialysis Hypertensive urgency MDD (major depressive disorder), recurrent episode MDD (major depressive disorder) Renal failure Foot ulcer CKD (chronic kidney disease) Hypertension Diabetic foot Hyperkalemia Vomiting Renal failure Hypertension Migraine Chronic pain ESRD on dialysis Non-compliance with renal dialysis Hypertension End-stage renal disease (ESRD) Diabetic foot ulcer associated with type 2 diabetes mellitus Diabetes ESRD needing dialysis Cardiomyopathy HFrEF (heart failure with reduced ejection fraction) delivery delivered Anemia in chronic kidney disease (CKD) CKD (chronic kidney disease) Headache, migraine Abnormal finding on echocardiogram Elevated troponin Chest pain Acute worsening of stage 3 chronic kidney disease Generalized edema Sepsis Cellulitis Pleural effusion CHF (congestive heart failure) (~06/07/22) Tachycardia Atypical chest pain Bone infection PAD (peripheral artery disease) Severe anemia Cellulitis and abscess of foot DM foot ulcer Osteomyelitis Asthma Depression with anxiety Diabetic retinopathy Type 2 diabetes mellitus with hyperglycemia, with long-term current use of insulin Blind right eye Diabetes Back pain Family History Mother Coronary artery disease Myocardial infarction Stroke Diabetes mellitus Father Myocardial infarction Surgical History Tubal ligation status Previous section Hx laparoscopic cholecystectomy Hx of surgical procedure (~09/11/23) 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 Social History Household Members: Family Household Members Other:: Sister Housing: House Are you a primary patient care technician to a significant other at home: No Do you presently have visiting nurse or other home services: No Unable to assess alcohol history related to: Unknown Alcohol intake: never Comment: Remain w/ pt on commode. Patient Tobacco Use Status: Never used Tobacco Smoked in Last 30 Days: No e-Cigarette/Vaping Use: Never Used Second Hand Smoke Exposure: No Use of substances other than those prescribed or required for medical reasons: No Advance Directives: Yes Advance Directives on File: Yes Advance Directives Date on File: 09/04/23 service: No Current occupational status: unemployed and disabled Gender identity: Female Meds Allergies Allergy/AdvReac Type Severity Reaction Status Date / Time morphine [MORPHINE] Allergy Intermediate Itching Verified 03/10/24 17:48 azithromycin [From Zithromax] Allergy Hives Verified 03/10/24 17:48 gabapentin Allergy Facial Verified 03/10/24 17:48 Swelling tramadol Allergy Facial Verified 03/10/24 17:48 Swelling vancomycin Allergy Anaphylaxis Verified 03/10/24 17:48 Home Medications ?Medication ?Instructions ?Recorded ?Confirmed ?Last Taken ?Type albuterol sulfate 90 mcg/actuation 2 puff inhalation Q6H PRN wheezing 01/15/24 03/09/24 Unknown History aerosol inhaler (Ventolin HFA) lidocaine 5 % topical patch 1 patch topical DAILY 01/15/24 03/09/24 02/24/24 History nitroglycerin 0.4 mg sublingual 0.4 mg sublingual DIRECTED PRN 01/15/24 03/09/24 Unknown History tablet Angina Physical Exam Vital Signs and Narrative: Vital Signs: Last Vital Signs Pulse 93 03/10/24 21:35 Resp 18 03/10/24 21:35 BP 175/91 H 03/10/24 23:41 Pulse Ox 97 03/10/24 21:59 O2 Del Method Room Air 03/10/24 21:59 O2 Flow Rate 2 03/10/24 20:56 Oxygen Flow Rate 10 03/10/24 17:41 BMI result Body Mass Index 27.6 Middle-aged female lying in bed in no distress Neck supple, no JVD Regular rate and rhythm, S1-S2 heard No wheezing Abdomen soft nontender, no guarding, no rigidity Patient is awake, alert and oriented to place and time ; no focal motor deficit Psych: Normal mood Bilateral TMA Results Labs 03/10/24 18:14 03/10/24 22:23 Labs: Laboratory Results - last 24 hr 03/10/24 03/10/24 03/10/24 18:14 18:21 22:23 MCV 90.9 MCH 29.4 MCHC 32.3 RDW 16.0 Plt Count 204 MPV 11.4 Immature Gran % (Auto) 0.4 Neut % (Auto) 81.4 H Lymph % (Auto) 7.4 L [place] % (Auto) 8.2 Eos % (Auto) 1.6 Baso % (Auto) 1.0 Lymph # (Auto) 0.5 L [place] # (Auto) 0.6 Eos # (Auto) 0.1 Baso # (Auto) 0.1 Abs Immat Gran (auto) 0.03 Absolute Neuts (auto) 5.8 Absolute Nucleated RBC 0.000 Nucleated RBC % (auto) 0.0 PT 15.6 H INR 1.3 H VBG pH 7.42 VBG pCO2 27 VBG pO2 118 VBG HCO3 18 L VBG O2 Saturation 99.0 VBG Base Excess -5.3 Anion Gap 24 H 23 H Estim Creat Clear Calc 9.9 Estimated GFR 6 Random Glucose 115 Calcium 8.1 L Total Bilirubin 1.2 H AST 28 ALT < 6 Alkaline Phosphatase 246 H Total Protein 7.8 Albumin 3.6 Influenza Type A (PCR) NEGATIVE Influenza Type B (PCR) NEGATIVE RSV RNA Qual (PCR) NEGATIVE SARS-CoV-2 RNA (RT-PCR) NEGATIVE Assessment and Plan (1) Acute hyperkalemia: Status: Acute Plan This is a 33-year-old female with pertinent history of ESRD on hemodialysis, 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 #. Hyperkalemia due to missed dialysis session: Given temporizing measures in the ER. Will admit patient with cardiac monitoring. Consulted Nephrology for dialysis #. ?seizure: Seizure-like activity as per patient but no postictal confusion. No tongue bite/urinary or bowel incontinence. Unclear if it was true seizure. If she has another witnessed episode, will initiate antiepileptics, neurology consult and EEG. #. Hypertension, uncontrolled: Due to medication noncompliance. Resume home antihypertensives #. Chronic hypoxemic respiratory failure: On 3-4 L baseline oxygen but she is out of her oxygen tank. Currently maintaining normal oxygen saturation on room air at the time of admission. #. Congestive heart failure with reduced EF: On beta-mohamud. Dialysis as above #. ESRD on hemodialysis #. MSSA bacteremia: On IV Kefzol 2 g after dialysis. End date: 04/03/2024 #. Cnj-iervadz-trybdfjoc diabetes mellitus with diabetic polyneuropathy/retinopathy: Initiating Accu-Cheks with sliding scale insulin #. Mood disorder: Not on mood stabilizers #. CAD/cardiomyopathy: On beta-mohamud. Not on aspirin or statin #. Chronic pain with opioid seeking behavior: Will avoid IV Dilaudid as much as possible. On p.o. oxycodone #. Chronic anemia of kidney disease Med rec pending DVT prophylaxis: Heparin Full code Quality Stroke Does the patient have a stroke diagnosis?: No VTE Prior VTE?: No VTE Risk Level:: Medical - moderate - high VTE Device Contraindication: Treatment Not Indicated VTE Drug Contraindication: N/A - Med Ordered
[2024-03-11] MEDS: oxyCODONE HCl Immed Release 5 MG TABLET 10 MG PO ×3 (02:05→17:11)
--- NOTE | 2024-03-11 02:07 | PC.NURSE ---
Medicated per mar for pain management.
--- NOTE | 2024-03-11 03:46 | PC.NURSE ---
pt medicated per mar, pt resting in bed, pain level as improved.
--- NOTE | 2024-03-11 06:02 | MHC.EDTECH ---
phlebotomy and this tech attempt morning labs and patient denied. will attempt later
[2024-03-11 07:53] LABS: Glucose, Whole Blood 67 mg/dL (60-115)
[2024-03-11 08:05] LABS: Glucose, Whole Blood 76 mg/dL (60-115)
--- NOTE | 2024-03-11 08:38 | PC.NURSE ---
Pt offered oxycodone for pain, pt states I need to speak to the doctor, that pain pill doesn't work. MD Arora made aware.
[2024-03-11] MEDS: 0.9 % Sodium Chloride Flush 3 ML SYRINGE IVFLUSH ×2 (08:41→17:18)
[2024-03-11] MEDS: carvediloL 12.5 MG TABLET PO (08:41)
--- NOTE | 2024-03-11 08:58 | PC.NURSE ---
MD Arora at bedside to evaluate/speak to pt.
--- NOTE | 2024-03-11 09:03 | PC.NURSE ---
Per MD Arora, pt to receive blood transfusion during dialysis.
--- NOTE | 2024-03-11 09:55 | PC.NURSE ---
Pt initially refusing labs but made aware we need a blood bank sample for her type and screen to receive blood, pt agreeable and phlebotomy at bedside.
[2024-03-11 10:08] LABS: Hematocrit 21.8 % (37.0-47.0); Hemoglobin 7.1 g/dl (12.0-16.0); Mean Corpuscular HGB Conc 32.6 g/dl (31.0-35.0); Mean Corpuscular Hemoglobin 29.3 pg (27.0-33.0); Mean Corpuscular Volume 90.1 fL (80.0-98.0); Platelet Count 181 X10*3/uL (160-400); Red Blood Count 2.42 X10*6/uL (4.20-5.50); White Blood Count 3.8 X10*3/uL (4.8-10.8)
[2024-03-11 10:29] LABS: Anion Gap 21 (12-20); Blood Urea Nitrogen 109 mg/dL (9-16); Calcium 8.2 mg/dL (8.4-10.2); Carbon Dioxide 19 mmol/L (22-29); Chloride 102 mmol/L (96-108); Glucose Random 110 mg/dL (60-115); Potassium 5.7 mmol/L (3.3-5.1); Sodium 136 mmol/L (135-145)
[2024-03-11 10:31] LABS: Creatinine Clr Calc Pharmacy 9.6; Estimated Glomerular Filt Rate 5
--- NOTE | 2024-03-11 10:44 | MHC.CM.PN ---
CM attempted to address STEPHENS with Patient at bedside, in the ED but she was sleeping soundly and was not easily awoken. STEPHENS was left at bedside for Patient's review and a copy will be placed on the chart. Patient lives in an apartment with her Sister/HCP/FINANCIAL MARKET DEALER/Joys and she use a w/c to assist with mobility. Patient receives her home O2 through [employer] and her HD is at [facility]. Home/resume said services is the goal and CM has initiated and will follow for dc planning. PCP is Dr. Travon Casillas and Patient will require BLS transport to home.
--- NOTE | 2024-03-11 11:07 | PHA.MEDREC ---
Pharmacy Consult ? Medication Reconciliation Pharmacy has completed the medication reconciliation.Med rec complete, patient was just discharge 1 week ago and states no changes to her discharge list
--- NOTE | 2024-03-11 12:00 | PC.NURSE ---
Pt woken from sleep for requested pain medication. Pt given warm blanket per request.
--- NOTE | 2024-03-11 12:34 | P.EN_ITS ---
Event Note Date of Service: 03/11/24 Event Note: Complaining of leg pain, requesting for Dilaudid, no nausea no vomiting, no seizure-like activity noted since admission. 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 #. Hyperkalemia due to missed dialysis session: Scheduled for dialysis this afternoon #. ?seizure: Seizure-like activity as per patient but no postictal confusion. No tongue bite/urinary or bowel incontinence. Unclear if it was true seizure. No recurrent episodes of seizure-like activity will monitor . #. Hypertension, uncontrolled: Due to medication noncompliance. Resume home antihypertensives hydralazine and Coreg. #. Chronic hypoxemic respiratory failure: On 3-4 L baseline oxygen but she is out of her oxygen tank. Currently maintaining normal oxygen saturation on room air. #. Congestive heart failure with reduced EF: No acute exacerbation, On beta- mohamud. Dialysis as above #. ESRD on hemodialysis #. MSSA bacteremia: On IV Kefzol 2 g after dialysis. End date: 04/03/2024 #. Pwq-kubkodq-pofvnewnm diabetes mellitus with diabetic polyneuropathy/retinopathy: stable BS ,cont. Accu-Cheks with sliding scale insulin #. Mood disorder: Not on mood stabilizers #. CAD/cardiomyopathy: On beta-mohamud. Not on aspirin or statin #. Chronic pain with opioid seeking behavior: Will avoid IV Dilaudid as much as possible. On p.o. oxycodone #. Acute on Chronic anemia of kidney disease Will transfuse 1 unit of packed RBC with hemodialysis recommend Procrit as per Nephrology DVT prophylaxis: Heparin Full code Time Spent With Patient Time: Total time managing care of this patient today ____ minutes.
--- NOTE | 2024-03-11 13:05 | PC.NURSE ---
Pt to dialysis at this time.
[2024-03-11] MEDS: ceFAZolin Sodium/Dextrose,Iso 2 GM/50 ML PIGGYBACK IV (17:11)
[2024-03-11] MEDS: hydrALAZINE HCl 50 MG TABLET PO (17:12)
[2024-03-11 19:11] LABS: Glucose, Whole Blood 108 mg/dL (60-115)
--- NOTE | 2024-03-11 22:03 | PC.NURSE ---
Admission completed in ED
[2024-03-11 22:05] LABS: Glucose, Whole Blood 141 mg/dL (60-115)
[2024-03-12] MEDS: oxyCODONE HCl Immed Release 5 MG TABLET 10 MG PO ×3 (00:14→14:23)
--- NOTE | 2024-03-12 01:56 | MHC.EDTECH ---
late entry: this tech assumed care of pt @0100, pt was witnessed sleeping w/ equal chest rise and unlabored repsirations, connected to care specialist in a hospital bed w/ seizure pads on side rails
[2024-03-12 02:35] VITALS: BP 142/76; PULSE 77; RESP 19; TEMP 36.3; O2SAT 93
--- NOTE | 2024-03-12 02:38 | PC.NURSE ---
Late entry: Assume care of pt at 1900 on 03/11/24, Pt lying in bed eyes closed, RR even and unlabored. Pt had no blood transfusing at the time. Per previous RN pt blood completed in dialysis. Pt reporting 10/10 generalized pain. Per pt pills not working, pt informed next available dose wasn't until after midnight. made aware. Pt also refused all bedtime medications. Attempts made to explain to pt that her medications were important for her HR and BP, pt unable to give reason as to why she didn't want to take it just that she did not want to. also made aware.
--- NOTE | 2024-03-12 03:48 | PC.ADMIT ---
Patient arrived to med/tele at approximately 0245 in a bed from the ED. Patient complaining of bladder pressure/discomfort and asked to be bladder scanned because she hasent urinated in over 3 days. Bladder scan was 850ml. RN dusty CARLSON who ordered straight cath. Straight cath administered with 650ml concentrated cloudy urine. Patient also stating she feels blood on her right foot. RN assessed and patient has bi lateral dressings on each foot. Right foot dressing was staining through. Both dressings changed. Right foot slightly foul smelling but wound doesnt look bad, small area that looks necrotic but mostly pink tissue. Rinsed with normal saline, applied aquacel/durafiber to wound and wrapped in gauze. Repeated for left foot. Small wound on plantar fascia and posterior heel. Wounds will need to be addressed for nursing care. Patient has no further concerns. Alert/oriented, NSR on tele. VSS, lungs are cta. Abdomen soft with positive bowel sounds. Patient tolerating pain, oxycodone and tylenol ordered. Will continue to monitor.
[2024-03-12 07:49] LABS: Glucose, Whole Blood 73 mg/dL (60-115)
[2024-03-12 08:00] VITALS: BP 155/77; PULSE 78; RESP 18; TEMP 36.5; O2SAT 100
[2024-03-12] MEDS: hydrALAZINE HCl 50 MG TABLET PO (09:24)
[2024-03-12] MEDS: carvediloL 12.5 MG TABLET PO (09:24)
[2024-03-12] MEDS: ondansetron HCL 4 MG/2 ML VIAL IVPUSH (10:50)
--- NOTE | 2024-03-12 10:50 | HO.WOUND ---
Wound Consult: Attempted Arrival to bedside patient was nauseous and receiving Iv medications - agreed to return to bedside in future.
--- NOTE | 2024-03-12 11:11 | MHC.CM.PN ---
Addendum entered by Vane Houston 03/12/24 13:14: Pt will be going home with new home O2 through [employer]. Addendum entered by Vane Houston 03/12/24 11:19: [facility] transport auth received (booking ID# [id number]). 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 Pt will transport home via BLS/Eric.
[2024-03-12 11:22] VITALS: PULSE 89; PULSE 92; PULSE 95; PULSE 97; O2SAT 79; O2SAT 85; O2SAT 86; O2SAT 88
[2024-03-12 12:00] VITALS: BP 140/71; PULSE 80; RESP 20; TEMP 36.4; O2SAT 99
[2024-03-12 12:16] LABS: Glucose, Whole Blood 91 mg/dL (60-115)
--- NOTE | 2024-03-12 12:42 | PC.NURSE ---
patient refusing to have labs drawn. education given to patient on significance of lab work. Patient still refused. notified
--- NOTE | 2024-03-12 13:41 | P.DS_ITS ---
DS: Providers Provider Date of Service: 03/12/24 Date of admission: 03/11/24 00:03 Date of discharge: 03/12/24 Primary care physician: Genevieve Casillas MD Consults: 03/11/24 00:03 Consult to Nephrology Routine Consulting Provider: [facility] Reason for consultation: ESRD 03/11/24 08:00 Consult to Nephrology Stat Consulting Provider: [facility] Reason for consultation: hemodialysis Has provider been notified: No 03/12/24 08:35 Consult to Wound Care Routine Reason for consultation: R foot wound with foul smelling drainage. 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 Patient missed her dialysis session on 03/08. Her last dialysis session was 03/06. Patient states she was without her home oxygen as the oxygen tank was taken away by the company without replacing 1. She was satting low as per EMS. Denies fever, chills, palpitations, abdominal pain. In the emergency department, patient was found to have hyperkalemia and given calcium gluconate, IV insulin, DuoNebs and Lokelma. Patient maintaining normal oxygen saturation on room air Of note, patient was recently admitted for MSSA bacteremia secondary to catheter infection. She was discharged on IV Kefzol 2 g on 03/04. 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 #. End-stage renal disease on hemodialysis, patient noted to have Hyperkalemia and dyspnea due to missed dialysis session, she was treated with Lokelma and underwent hemodialysis, she is recommended to continue hemodialysis 3 times a week previously she was only receiving hemodialysis on Tuesdays and no arrangement has been made for hemodialysis on Saturdays as well patient has been strongly recommended compliance with hemodialysis and home medications , she was also noted to have acute on chronic anemia due to kidney disease she was treated with 1 unit of packed RBC patient declined repeat blood work. #. ? Seizure-like activity witnessed at home by family, with patient denied postictal confusion,, No tongue biting/urinary or bowel incontinence. Unclear if it was true seizure, no recurrent seizure-like activity noted in hospital therefore no further workup obtained. #. Hypertension, uncontrolled: Due to medication noncompliance, recommend to resume all home medications and compliance. #. Chronic hypoxemic respiratory failure: On 3-4 L baseline oxygen but she is out of her oxygen tank, patient had re-evaluation for home O2 and qualifies for 2 L of home oxygen #. MSSA bacteremia: On IV Kefzol 2 g after dialysis. End date: 04/03/2024, recommend to continue as previously planned #. Dfz-ounhdkc-bbsavogvf diabetes mellitus with diabetic polyneuropathy/retinopathy. # urinary retention recommend compliance with Flomax and outpatient follow-up with Urology patient declined Carrero catheter, as per patient she is able to voide at home if sitting on commode for longer duration. Continued to have issues with urinary retention recommend straight catheterization/sister will require teachings since patient is blind. Time Attestation Discharge Coordination Time (in mins): 36 Quality: Safe Use of Opioids Does Pt have an Active Cancer Diagnosis on the Problem List?: No Quality: Stroke Does the patient have a stroke diagnosis?: No Physical Exam Vital Signs: Vital Signs: Last Vital Signs Temp 97.6 F 03/12/24 12:00 Pulse 80 03/12/24 12:00 Resp 20 03/12/24 12:00 BP 140/71 H 03/12/24 12:00 Pulse Ox 99 03/12/24 12:00 O2 Del Method Nasal Cannula 03/12/24 12:00 O2 Flow Rate 2 03/12/24 12:00 Oxygen Flow Rate 10 03/10/24 17:41 BMI result Body Mass Index 27.6 Const: Other: Gen: Awake alert, blind, resting comfortably in no distress HEENT: sclera anicteric, moist mucus membranes Neck: supple Lungs: clear to auscultation bilaterally Heart: regular rate and rhythm, no murmurs Abd: soft, non-tender, non-distended Ext: no edema, R TMA, L TMA Skin: warm/well-perfused. Neuro: alert and oriented x3, no focal findings Psych: appropriate affect DS: Data Data Completed and Pending Completed studies during hospitalization [Text1]: Procedures Detachment at Left 2nd Toe, Complete, Open Approach (09/08/23) Detachment at Left 3rd Toe, Complete, Open Approach (09/08/23) Detachment at Left 4th Toe, Complete, Open Approach (09/08/23) Detachment at Right Foot, Partial 1st Ray, Open Approach (03/01/20) Detachment at Right Foot, Partial 2nd Ray, Open Approach (03/01/20) Detachment at Right Foot, Partial 3rd Ray, Open Approach (03/01/20) Detachment at Right Foot, Partial 4th Ray, Open Approach (03/01/20) Detachment at Right Foot, Partial 5th Ray, Open Approach (03/01/20) Drainage of Right Pleural Cavity, Percutaneous Approach (01/14/21) Excision of Left Foot Muscle, Open Approach (01/14/24) Excision of Left Foot Skin, External Approach (10/08/23) Excision of Left Foot Subcutaneous Tissue and Fascia, Open Approach (10/08/23) Excision of Right Foot Skin, External Approach (08/27/23) Excision of Stomach, Pylorus, Via Natural or Artificial Opening Endoscopic, Diagnostic (08/27/22) Fluoroscopy of Superior Vena Cava, Guidance (08/14/22) Insertion of Endotracheal Airway into Trachea, Via Natural or Artificial Opening (11/10/23) Insertion of Infusion Device into Right Atrium, Percutaneous Approach (02/25/24) Insertion of Infusion Device into Superior Vena Cava, Percutaneous Approach (02/25/24) Insertion of Infusion Device into Upper Vein, Percutaneous Approach (01/14/24) Insertion of Tunneled Vascular Access Device into Chest Subcutaneous Tissue and Fascia, Percutaneous Approach (02/25/24) Introduction of Vasopressor into Peripheral Vein, Percutaneous Approach (11/10/23) Isolation (11/10/23) Performance of Urinary Filtration, Intermittent, Less than 6 Hours Per Day (02/25/24) Removal of Infusion Device from Great Vessel, External Approach (01/14/21) Removal of Infusion Device from Heart, External Approach (01/14/24) Respiratory Ventilation, Greater than 96 Consecutive Hours (11/10/23) Transfusion of Nonautologous Red Blood Cells into Peripheral Vein, Percutaneous Approach (11/10/23) Ultrasonography of Superior Vena Cava, Guidance (02/25/24) Labs on day of discharge: Laboratory Results - last 24 hr 03/11/24 03/11/24 03/11/24 10:24 19:03 22:02 POC Glucose 108 141 H Blood Type A Positive Antibody Screen NEGATIVE Crossmatch See Detail 03/12/24 03/12/24 07:39 12:06 POC Glucose 73 91 Blood Type Antibody Screen Crossmatch Discharge Plan Discharge Anticipated Discharge Date/Time: 03/12/24 12:40 Patient Disposition: Home Health Service Discharge Diagnosis: Hyperkalemia End-stage renal disease noncompliance with hemodialysis Acute on chronic anemia Referrals: Genevieve Gtz MD [Primary Care Provider] - 1 Week Discharge Medications: Continued carvedilol 12.5 mg Tablet 12.5 mg PO BID 90 Days Qty: 180 0RF Protocol: Hold for SBP/HR < HOLD for SBP < : 90 HOLD for HR < : 60 hydralazine 50 mg Tablet 50 mg PO TID 90 Days Qty: 270 0RF Protocol: Hold for SBP< HOLD for SBP < : 90 acetaminophen 325 mg tablet 650 mg PO Q4H PRN (Reason: mild pain) lidocaine 5 % adhesive patch,medicated 1 patch topical DAILY nitroglycerin 0.4 mg tablet, sublingual 0.4 mg sublingual DIRECTED PRN (Reason: Angina) albuterol sulfate [Ventolin HFA] 90 mcg/actuation HFA aerosol inhaler 2 puff inhalation Q6H PRN (Reason: wheezing) oxycodone 10 mg tablet 10 mg PO Q6H PRN (Reason: pain) Qty: 20 0RF Rx Instructions: Partial Fill upon patient request. tamsulosin 0.4 mg Capsule 0.8 mg PO BEDTIME Qty: 30 0RF cefazolin in dextrose (iso-os) 2 gram/50 mL Piggyback 50 ml IV TuThSa@1800 Rx Instructions: END DATE: 04/03/24 Discharge Orders: Discharge Order (Routine); Ordered 03/12/24 Ordered By: Scarlet Arora Diet: Diabetic diet Activity on Discharge: As tolerated Stand Alone Forms: Patient Portal Discharge page Print Language: Bolivian Care Plan Goals: Continue hemodialysis Sunday and Saturdays Recommend to continue IV cefazolin as previously planned. Recommend outpatient follow-up with Urology for urinary retention Strongly recommend to continue use of Flomax. Health Concerns: Noncompliance with hemodialysis Noncompliance with antihypertensive medications Plan of Treatment: Outpatient follow-up with primary care physician call for appointment Assessment: As above
--- NOTE | 2024-03-20 02:22 | PC.NURSE ---
Patients pain level on 03-12-24 was a 10/10 before oxy administration at 0630, not a 0 as documented in error.
== END 2024-03-12 16:40 | disposition home health service (06) ==
LOC: HO.ED 22:40 → HO.EDOVER 03-11 00:07 → HO.IMC 03-12 01:31
PROVIDERS: Admitting Provider Student in an Organized Health Care Education/Training Program; Emergency Provider Internal Medicine; PCP Student in an Organized Health Care Education/Training Program; Visit Provider Hospitalist
DX: E87.5 Hyperkalemia (principal); R56.9 Unspecified convulsions; E11.22 Type 2 diabetes mellitus with diabetic chronic kidney disease; I13.2 Hypertensive heart and chronic kidney disease with heart failure and with stage 5 chronic kidney disease, or end stage renal disease; I50.9 Heart failure, unspecified; N18.6 End stage renal disease; D63.1 Anemia in chronic kidney disease; R78.81 Bacteremia; A49.01 Methicillin susceptible Staphylococcus aureus infection, unspecified site; J96.11 Chronic respiratory failure with hypoxia; R33.9 Retention of urine, unspecified; E11.42 Type 2 diabetes mellitus with diabetic polyneuropathy; H54.8 Legal blindness, as defined in USA; F39 Unspecified mood [affective] disorder; I73.9 Peripheral vascular disease, unspecified; Z99.2 Dependence on renal dialysis; Z79.899 Other long term (current) drug therapy; Z03.818 Encounter for observation for suspected exposure to other biological agents ruled out
CPT/HCPCS: 0241U; 36415; 36430; 70450; 71045; 80048; 80051; 80053; 82803; 82947; 85025; 85027; 85610; 86850; 86900; 86901; 86923; 90999; 93005; 94640; 96365; 96366; 96367; 96375; 96376; 99222; 99285; J0360; J0613; J0690; J0737; J1171; J1200; J2405; P9016

== ENCOUNTER → 2024-03-10 17:43 | Outpatient (BNV) | payer OTHER, SELFPAY | PROVIDERS: Emergency Provider Internal Medicine; PCP Student in an Organized Health Care Education/Training Program; Visit Provider Radiology Diagnostic Radiology | DX: I63.81 Other cerebral infarction due to occlusion or stenosis of small artery (principal); H35.60 Retinal hemorrhage, unspecified eye; R06.02 Shortness of breath | CPT/HCPCS: 70450; 71045 ==

== ENCOUNTER → 2024-03-10 23:00 | Outpatient (BNV) | payer OTHER, SELFPAY | PROVIDERS: Admitting Provider Student in an Organized Health Care Education/Training Program; Emergency Provider Internal Medicine; PCP Student in an Organized Health Care Education/Training Program; Visit Provider Internal Medicine Cardiovascular Disease | DX: R94.31 Abnormal electrocardiogram [ECG] [EKG] (principal) | CPT/HCPCS: 93010 ==

== ENCOUNTER → 2024-03-11 00:03 | Outpatient (BNV) | payer OTHER, SELFPAY | PROVIDERS: Admitting Provider Student in an Organized Health Care Education/Training Program; Emergency Provider Internal Medicine; PCP Student in an Organized Health Care Education/Training Program; Visit Provider Student in an Organized Health Care Education/Training Program | DX: E87.5 Hyperkalemia (principal); N18.6 End stage renal disease; Z99.2 Dependence on renal dialysis | CPT/HCPCS: 99223; 99239; 99499 ==

== ENCOUNTER 2024-05-25 13:37 | Inpatient (IN) | payer OTHER, SELFPAY ==
--- NOTE | ~2024-05-25 | CT_ITS ---
CLINICAL HISTORY: nausea vomiting diarrhea, sepsis Exam: CT Abdomen and Pelvis With IV Contrast Comparison: 03/09/2024 Findings: The liver density is homogeneous No biliary abnormalities. The gallbladder is surgically absent The spleen is mildly enlarged, unchanged in size from previous exam No pancreatic ductal dilatation No hydronephrosis. No intrarenal or ureteral calculi. A 9 mm benign posterior left renal cortical cyst is present. Normal bowel caliber No secondary signs of acute appendicitis No free fluid/free air There is extensive visceral artery atherosclerotic calcification. Several scattered periaortic and iliac lymph nodes are unchanged in size and number when compared to previous exam Bladder outline is smooth. Uterus is normal in size. No suspicious skeletal lesions. Impression : Extensive visceral artery atherosclerotic calcification may be secondary to diabetes or dialysis. Liver is decreased in size measuring 16.5 cm in length and measured 20.5 cm in length on the previous exam. Mild splenomegaly is unchanged from previous exam This document has been electronically signed by: Fernando Fowler MD on 05/25/2024 17:21:36
--- NOTE | ~2024-05-25 | IR_ITS ---
Permacath was removed by Jaime Garcia/JOVON. No conscious sedation was involved. Patient tolerated procedure extremely well. Electronically signed by: Cam Garza MD 06/10/2024 09:00 AM EDT RP IR/IR cvc remov tunnel wo prt/assistant manager bilingual IMPRESSION: Successful ultrasound and fluoroscopy-guided placement of a right permacatheter. Fluoroscopy time: 0.8 minutes. Dose: 10.3 mGy. Electronically signed by: Cam Garza MD 06/03/2024 05:01 PM EDT
--- NOTE | ~2024-05-25 | IR_ITS ---
PROCEDURE: IR INSERTION OF TUNNEL CATHETER UNDER ULTRASOUND AND FLUOROSCOPY. CLINICAL INFORMATION: Renal failure. Needs images renal dialysis. COMPARISON: IR insertion of tunnel catheter 03/03/2024 TECHNIQUE: Allowing explaining ultrasound and fluoroscopy-guided placement of right side permacatheter procedure, benefits in risk aerated and consent was obtained. All elements of maximal sterile barrier technique followed including use of cap, mask, sterile gown, sterile gloves, a sterile full body drape and hand hygiene. Also followed skin preparation with 2% chlorhexidine for cutaneous antisepsis, and sterile ultrasound preparation with sterile gel and probe cover when applicable. Preliminary ultrasound imaging was obtained through the right neck and optimal site for puncture along the right neck was marked. 1% lidocaine was inserted puncture site. Under sterile ultrasound guidance a singlewall needle was advanced and right jugular vein are both the clavicle was punctured. After obtaining venous return a thin guidewire was advanced over the needle and needle removed. The guidewire was attached to the drape with hemostats. Approximately 1 gauze length away from the right jugular puncture along the right anterior chest wall one percent lidocaine was infiltrated. A small skin incision was performed. 1% lidocaine was then inserted through a long needle from right anterior chest wall to the right neck area in the subcutaneous soft tissues. A tunneler attached to the 14.5 [place] permacatheter was bluntly tunneled from the right anterior chest wall lesion and pulled through the right neck incision. It was made shoulder cuff was inside the skin. The thin wire in the right jugular vein was exchanged over a small 5 Greenlandic dilator. A thin wire was removed and a long 0.035 wire was inserted through the 5 [place]ic dilator and advanced into the IVC under fluoroscopy. The 5 [place]ic dilator was removed and exchanged for a 8 [place]ic and a 12 [place]ic dilator and the tract was dilated. Subsequently a 14.5 [place]ic dilator with below the sheath was inserted over the guidewire and placed in SVC. The permacatheter was then advanced over the peel-away sheath after removing the dilator. The peel-away sheath was removed the permacatheter was held in position. A single image was obtained for documentation of tip of the catheter in the mid SVC. Absorbable 3-0 sutures were placed along the right neck and the right anterior chest wall. The area was cleaned. Both ports of the catheter were flushed with saline. Conscious sedation was utilized during exam and patient monitored by our nursing and IR radiologist for 27 minutes. Patient tolerated procedure extremely well. FINDINGS: On preliminary ultrasound imaging there is widely patent right internal jugular vein. A 14.5 Green[place]ic glide path permacath 23 cm long was placed with its tip in mid SVC. The catheter is ready for use. IR/IR cvc insert central tunnel IMPRESSION: Successful ultrasound and fluoroscopy-guided placement of a right permacatheter. Fluoroscopy time: 0.8 minutes. Dose: 10.3 mGy. Electronically signed by: Cam Garza MD 06/03/2024 05:01 PM EDT
--- NOTE | ~2024-05-25 | XR_ITS ---
CLINICAL HISTORY: fever 1 view chest x-ray. Comparison: 03/10/2024 Findings: The heart size is enlarged. Pulmonary vasculature is within limits of normal. LT HD catheter tip is at the atriocaval junction. No pneumothorax. No pleural effusion. Impression: Cardiomegaly. Lungs are clear. This document has been electronically signed by: Fernando Fowler MD on 05/25/2024 14:38:08
--- NOTE | ~2024-05-25 | IR_ITS ---
Ultrasound-guided venous access for tunnel dialysis catheter was dictated with fluoroscopy guided insertion of catheter Electronically signed by: Cam Garza MD 06/05/2024 07:38 AM EDT RP
[2024-05-25 13:48] VITALS: BP 182/90; PULSE 110; RESP 25; TEMP 39.4; O2SAT 92; BMI 26.6
--- NOTE | 2024-05-25 13:57 | ECG_ITS ---
Test Reason : ABD PAIN Blood Pressure : */* mmHG Vent. Rate : 102 BPM Atrial Rate : 102 BPM P-R Int : 164 ms QRS Dur : 140 ms QT Int : 408 ms P-R-T Axes : 31 -33 37 degrees QTcB Int : 531 ms Sinus tachycardia Possible Left atrial enlargement Left axis deviation Right bundle branch block Abnormal ECG When compared with ECG of 10-Mar-2024 23:10, No significant change was found Referred By: Generic ED Physician Electronically Signed By: JAKSARAN COOL
[2024-05-25 14:02] LABS: MANUAL DIFF FLAG NO
[2024-05-25 14:03] LABS: Basophils Percent Auto 0.1 % (0-2); Eosinophils Percent Auto 0.1 % (0-4); Hematocrit 41.6 % (37.0-47.0); Hemoglobin 13.8 g/dl (12.0-16.0); Imm Gran Abs Auto 0.05 X10*3/uL (0.00-0.03); Imm Gran Pct Auto 0.4 % (0.0-0.4); Lymphocytes Absolute Auto 0.5 X10*3/uL (1.2-4.9); Lymphocytes Percent Auto 3.9 % (20-40); Mean Corpuscular HGB Conc 33.2 g/dl (31.0-35.0); Mean Corpuscular Volume 84.6 fL (80.0-98.0); Mean Platelet Volume 11.1 fL (9.4-12.3); Monocytes Absolute Auto 1.1 X10*3/uL (0.1-1.2); Monocytes Percent Auto 8.3 % (2-11); Neutrophils Absolute Auto 11.7 x10*3/uL (2.0-8.3); Neutrophils Percent Auto 87.2 % (45-73); Platelet Count 137 X10*3/uL (160-400); Red Blood Count 4.92 X10*6/uL (4.20-5.50); White Blood Count 13.5 X10*3/uL (4.8-10.8)
--- NOTE | 2024-05-25 14:13 | ED_ITS ---
HPI - General Adult General Chief complaint: Nausea/Vomiting/Diarrhea Stated complaint: N/V, WEAKNESS, FEVER PER EMS Time Seen by Provider: 05/25/24 14:00 Source: patient and EMS Mode of arrival: EMS Limitations: no limitations History of Present Illness ED Provider: HPI narrative: 33-year-old female with pertinent history of ESRD on hemodialysis, 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, peripheral arterial disease status post bilateral TMA, poorly controlled hypertension due to noncompliance with medications, chronic hypoxic respiratory failure on 4 L baseline supplemental oxygen, congestive heart failure with reduced ejection fraction, mood disorder, chronic pain with opioid seeking behavior, cardiomyopathy on hemodialysis comes here for fever started since yesterday with cough and vomiting patient just had a dialysis yesterday after she reached home started coughing and having chills and fever and with cough it has been vomiting no chest pain no abdominal pain on arrival patient's temperature was 102.9 degrees patient has had a history of MSSA bacteremia was not Kefzol in 03/22 patient's has a Shiley catheter in the left SCA Related Data Home Medications ?Medication ?Instructions ?Recorded ?Confirmed albuterol sulfate 90 mcg/actuation 2 puff inhalation Q6H PRN wheezing 01/15/24 03/11/24 aerosol inhaler (Ventolin HFA) lidocaine 5 % topical patch 1 patch topical DAILY 01/15/24 03/11/24 nitroglycerin 0.4 mg sublingual 0.4 mg sublingual DIRECTED PRN 01/15/24 03/11/24 tablet Angina acetaminophen 325 mg tablet 650 mg PO Q4H PRN mild pain 03/11/24 03/11/24 Previous Rx's ?Medication ?Instructions ?Recorded carvedilol 12.5 mg tablet 12.5 mg PO BID 90 days #180 tabs 12/16/23 hydralazine 50 mg tablet 50 mg PO TID 90 days #270 tabs 12/16/23 oxycodone 10 mg tablet 10 mg PO Q6H PRN pain #20 tabs 01/26/24 cefazolin 2 gram/50 mL in dextrose 50 ml IV TuThSa@1800 03/04/24 (iso-osmotic) intravenous piggyback tamsulosin 0.4 mg capsule 0.8 mg (2 x 0.4 mg) PO BEDTIME #30 03/04/24 caps Allergies Allergy/AdvReac Type Severity Reaction Status Date / Time morphine [MORPHINE] Allergy Intermediate Itching Verified 05/25/24 13:48 azithromycin [From Zithromax] Allergy Hives Verified 05/25/24 13:48 gabapentin Allergy Facial Verified 05/25/24 13:48 Swelling tramadol Allergy Facial Verified 05/25/24 13:48 Swelling vancomycin Allergy Anaphylaxis Verified 05/25/24 13:48 Review of Systems 2 Review of Systems: Yes all other systems are reviewed and are negative [facility] Past Medical History Medical History (Updated 05/25/24 @ 16:08 by Mazin Rubalcava MD) Hypotonic neurogenic bladder Diabetic polyneuropathy ESRD (end stage renal disease) on dialysis Hypertensive emergency Non-compliance with renal dialysis Decompensated heart failure Congestive heart failure Renal failure Hypertension, uncontrolled Medical non-compliance Pericarditis Unspecified hypertension, condition or complication Metabolic acidosis Gastroparesis End stage chronic kidney disease Chronic kidney disease Anemia Chronic foot ulcer Plantar ulcer of left foot Major depressive disorder, single episode, severe ESRD (end stage renal disease) Non-compliance with renal dialysis Hypertensive urgency MDD (major depressive disorder), recurrent episode MDD (major depressive disorder) Renal failure Foot ulcer CKD (chronic kidney disease) Hypertension Diabetic foot Hyperkalemia Vomiting Renal failure Hypertension Migraine Chronic pain ESRD on dialysis Non-compliance with renal dialysis Hypertension End-stage renal disease (ESRD) Diabetic foot ulcer associated with type 2 diabetes mellitus Diabetes ESRD needing dialysis Cardiomyopathy HFrEF (heart failure with reduced ejection fraction) delivery delivered Anemia in chronic kidney disease (CKD) CKD (chronic kidney disease) Headache, migraine Abnormal finding on echocardiogram Elevated troponin Chest pain Acute worsening of stage 3 chronic kidney disease Generalized edema Sepsis Cellulitis Pleural effusion CHF (congestive heart failure) (~06/07/22) Tachycardia Atypical chest pain Bone infection PAD (peripheral artery disease) Severe anemia Cellulitis and abscess of foot DM foot ulcer Osteomyelitis Asthma Depression with anxiety Diabetic retinopathy Type 2 diabetes mellitus with hyperglycemia, with long-term current use of insulin Blind right eye Diabetes Back pain Surgical History Tubal ligation status Previous section Hx laparoscopic cholecystectomy Hx of surgical procedure (~09/11/23) 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 Family History Family History Mother Coronary artery disease Myocardial infarction Stroke Diabetes mellitus Father Myocardial infarction Social History Social History Household Members: Family Household Members Other:: Sister Housing: House Are you a primary child care specialist to a significant other at home: No Do you presently have visiting nurse or other home services: No Unable to assess alcohol history related to: Unknown Alcohol intake: never Comment: Remain w/ pt on commode. Patient Tobacco Use Status: Never used Tobacco e-Cigarette/Vaping Use: Never Used Second Hand Smoke Exposure: No Advance Directives: Yes Advance Directives on File: Yes Advance Directives Date on File: 09/04/23 service: No Current occupational status: unemployed and disabled Gender identity: Female Physical Exam ED Vital Signs: Vital Signs - 24 hr 05/25/24 13:48 Temperature 102.9 F H Pulse Rate 110 H Respiratory Rate 25 H Blood Pressure 182/90 H Pulse Oximetry 92 Oxygen Delivery Method Room Air BMI result Body Mass Index 26.6 Appearance: Alert. Oriented X3. No acute distress. Eyes: legally blind with right cornea opacified ENT: Pharynx normal. Oral Mucosa moist Neck: Normal inspection. Neck supple. CVS: tachycardic regular rhythm Pulses normal. Shiley catheter on left SCA Respiratory: No respiratory distress. Equal air entry bilateral, no wheezing/rales/rhonchi Abdomen: Soft and nontender. Bowel sounds are present, no mass palpable, no CVA tenderness Skin: Skin warm and dry. Normal skin color. Normal skin turgor. Extremities: No lower extremity edema. No calf tenderness bilateral metatarsal amputation Neuro: Oriented X 3. No motor deficit. No sensory deficit.No cerebellar signs , cranial nerves II-XII intact Medications Administered Generic Name Dose Route Start Last Admin Trade Name Freq PRN Reason Stop Dose Admin Heparin Sodium (Porcine) 5,000 unit 05/25/24 16:00 05/25/24 15:46 Heparin Sodium,Porcine 5,000 Unit/Ml Vial SUBCUT Not Given Q12H VASILE Sodium Chloride 3 ml 05/25/24 16:00 05/25/24 15:56 0.9 % Sodium Chloride Flush 3 Ml Syringe IVFLUSH Not Given QSHIFT VASILE Discontinued Medications Generic Name Dose Route Start Last Admin Trade Name Freq PRN Reason Stop Dose Admin Ceftriaxone Sodium 1 gm 05/25/24 14:04 05/25/24 14:27 Ceftriaxone Sodium 1 Gm Vial IVPUSH 05/25/24 14:05 1 gm ONCE ONE Administration Hydromorphone HCl 2 mg 05/25/24 14:11 05/25/24 14:23 Hydromorphone Hcl 2 Mg/Ml Vial IVPUSH 05/25/24 14:12 2 mg ONCE ONE Administration Protocol Sodium Chloride 1,000 mls @ 999 mls/hr 05/25/24 14:01 05/25/24 15:46 Ns IV 05/25/24 15:01 Infused .Q1H1M ONE Infusion Acetaminophen 1,000 mg in 100 mls @ 400 mls/hr 05/25/24 14:01 05/25/24 14:18 Ofirmev IV 05/25/24 14:15 400 mls/hr ONCE ONE Administration Cefazolin Sodium/Dextrose 2 gm in 50 mls @ 100 mls/hr 05/25/24 14:37 05/25/24 15:46 Ancef IV 05/25/24 15:06 Infused ONCE ONE Infusion Cefepime HCl 1 gm/ Sodium 50 mls @ 100 mls/hr 05/25/24 15:07 05/25/24 15:39 Chloride IV 05/25/24 15:36 100 mls/hr ONCE ONE Administration Ondansetron HCl 4 mg 05/25/24 14:11 05/25/24 14:23 Ondansetron Hcl 4 Mg/2 Ml Vial IVPUSH 05/25/24 14:12 4 mg ONCE ONE Administration Sodium Zirconium Cyclosilicate 10 gm 05/25/24 14:50 05/25/24 15:51 Sodium Zirconium Cyclosilicate 10 Gm Powd.Pack PO 05/25/24 14:51 10 gm ONCE ONE Administration Medical Decision Making Medical Decision Making MDM Narrative: patient with high fever on dialysis with history of MSSA bacteremia in 03/22 comes with a high-grade fever with nausea vomiting and cough workup showed leukocytosis started on Kefzol IV fluids are limited because of dialysis Differential Diagnosis Differential Diagnoses: The differential diagnosis associated with the presentation includes bacteremia/viral infection/ pneumonia Admission/Observation Consideration of admission/observation: Escalation of care including admission/observation considered Consult Healthcare Provider Management of the patient was discussed with: Hospitalist Lab Data MDM Lab Attestation statement: I reviewed the patient's lab results. 05/25/24 13:59 05/25/24 13:59 Labs: Lab Results 05/25/24 05/25/24 05/25/24 Range/Units 13:59 14:04 14:07 WBC 13.5 H (4.8-10.8) X10*3/uL RBC 4.92 D (4.20-5.50) X10*6/uL Hgb 13.8 D (12.0-16.0) g/dl Hct 41.6 D (37.0-47.0) % MCV 84.6 (80.0-98.0) fL MCH 28.0 (27.0-33.0) pg MCHC 33.2 (31.0-35.0) g/dl RDW 15.0 (11.0-16.0) % Plt Count 137 L (160-400) X10*3/uL MPV 11.1 (9.4-12.3) fL Immature Gran % (Auto) 0.4 (0.0-0.4) % Neut % (Auto) 87.2 H (45-73) % Lymph % (Auto) 3.9 L (20-40) % Harris % (Auto) 8.3 (2-11) % Eos % (Auto) 0.1 (0-4) % Baso % (Auto) 0.1 (0-2) % Lymph # (Auto) 0.5 L (1.2-4.9) X10*3/uL Harris # (Auto) 1.1 (0.1-1.2) X10*3/uL Eos # (Auto) 0.0 (0.0-0.4) X10*3/uL Baso # (Auto) 0.0 (0.0-0.2) X10*3/uL Abs Immat Gran (auto) 0.05 H (0.00-0.03) X10*3/uL Absolute Neuts (auto) 11.7 H (2.0-8.3) x10*3/uL Absolute Nucleated RBC 0.000 (0.0-0.012) X10*3/uL Nucleated RBC % (auto) 0.0 (0.0-0.2) /100WBC Sodium 133 L (135-145) mmol/L Potassium 5.9 H (3.3-5.1) mmol/L Chloride 97 (96-108) mmol/L Carbon Dioxide 20 L (22-29) mmol/L Anion Gap 22 H (12-20) BUN 60 H (9-16) mg/dL Creatinine 7.66 H* (0.5-1.4) mg/dL Estim Creat Clear Calc 10.2 Estimated GFR 6 Random Glucose 110 (60-115) mg/dL Lactic Acid 2.5 H* (0.5-2.0) mmol/L Calcium 9.2 D (8.4-10.2) mg/dL Total Bilirubin 1.7 H (0.0-1.0) mg/dL AST 50 H (5-31) U/L ALT 23 (0-31) U/L Alkaline Phosphatase 205 H (39-117) U/L Total Protein 9.6 H (6.5-8.0) g/dL Albumin 4.1 (3.5-5.0) g/dL Influenza Type A (PCR) NEGATIVE (Negative) Influenza Type B (PCR) NEGATIVE (Negative) RSV RNA Qual (PCR) NEGATIVE (Negative) SARS-CoV-2 RNA (RT-PCR) NEGATIVE (Negative) Independent Interpretation I performed an independent interpretation of an: EKG Radiology Impression Discussion of test interpretation with radiology: I have reviewed the radiologist's reading. Radiologist Impression: Impression: Cardiomegaly. Lungs are clear. Discharge Plan Discharge Clinical Impression: Fever, Bacteremia Patient Disposition: Admitted As Inpatient
--- NOTE | 2024-05-25 14:13 | MHC.EDTECH ---
Patient refusing EKG. RN aware.
[2024-05-25] MEDS: 0.9 % Sodium Chloride 1,000 ML 999 ML IV (14:18)
[2024-05-25] MEDS: Acetaminophen 1,000 MG/100 ML PIGGYBACK 400 MG IV (14:18)
[2024-05-25] MEDS: HYDROmorphone HCl 2 MG/ML VIAL IVPUSH (14:23)
[2024-05-25] MEDS: ondansetron HCL 4 MG/2 ML VIAL IVPUSH ×2 (14:23→19:55)
[2024-05-25] MEDS: cefTRIAXone sodium 1 GM VIAL IVPUSH (14:27)
[2024-05-25 14:31] LABS: Alanine Aminotransferase 23 U/L (0-31); Albumin Level 4.1 g/dL (3.5-5.0); Alkaline Phosphatase 205 U/L (39-117); Anion Gap 22 (12-20); Aspartate Amino Transferase 50 U/L (5-31); Bilirubin Total 1.7 mg/dL (0.0-1.0); Blood Urea Nitrogen 60 mg/dL (9-16); Calcium 9.2 mg/dL (8.4-10.2); Carbon Dioxide 20 mmol/L (22-29); Chloride 97 mmol/L (96-108); Creatinine Clr Calc Pharmacy 10.2; Estimated Glomerular Filt Rate 6; Glucose Random 110 mg/dL (60-115); Potassium 5.9 mmol/L (3.3-5.1); Sodium 133 mmol/L (135-145); Total Protein 9.6 g/dL (6.5-8.0)
[2024-05-25 14:31] LABS: Lactic Acid 2.5 mmol/L (0.5-2.0)
[2024-05-25] MEDS: ceFAZolin Sodium/Dextrose,Iso 2 GM/50 ML PIGGYBACK IV (14:49)
[2024-05-25 14:51] LABS: Influenza A PCR NEGATIVE (Negative); Influenza B PCR NEGATIVE (Negative); Resp Syncy Virus RNA Qual PCR NEGATIVE (Negative); SARS COV2 PCR INHOUSE NEGATIVE (Negative)
--- NOTE | 2024-05-25 15:30 | P.HPHOSP_ITS ---
History of Present Illness Date of Service: 05/25/24 Chief Complaint: fever 33yo F with ESRD on HD TuThSa, DM2 with polyneuropathy/retinopathy with blindness, PAD s/p bilateral TMA, HTN, chronic hypoxic respiratory failure on 3- 4L O2, HFrEF, mood disorder, chronic pain with opioid-seeking behavior, and history multiple line infections with bacteremia with MSSA, Stenotrophomonas, and Pseudomonas. Last infection was with MSSA and she completed IV cefazolin 04/03/24. She was in her usual state of health but last night developed nausea, vomiting, and generalized abdominal pain. Some watery diarrhea as well. No hematochezia or melena. Complains of dry cough without sputum, no sore throat. She did go to HD yesterday though historically has not had good adherence to HD. In the ED, she was found to be septic with fever, tachycardia, tachypnea, and leukocytosis. Blood cultures were drawn and she was given ceftriaxone and cefazolin. K elevated to 5.9. Review of Systems 2 Review of Systems: Yes all other systems are reviewed and are negative [facility] Medical History (Updated 05/25/24 @ 15:39 by Paul Diane MD) Hypotonic neurogenic bladder Diabetic polyneuropathy ESRD (end stage renal disease) on dialysis Hypertensive emergency Non-compliance with renal dialysis Decompensated heart failure Congestive heart failure Renal failure Hypertension, uncontrolled Medical non-compliance Pericarditis Unspecified hypertension, condition or complication Metabolic acidosis Gastroparesis End stage chronic kidney disease Chronic kidney disease Anemia Chronic foot ulcer Plantar ulcer of left foot Major depressive disorder, single episode, severe ESRD (end stage renal disease) Non-compliance with renal dialysis Hypertensive urgency MDD (major depressive disorder), recurrent episode MDD (major depressive disorder) Renal failure Foot ulcer CKD (chronic kidney disease) Hypertension Diabetic foot Hyperkalemia Vomiting Renal failure Hypertension Migraine Chronic pain ESRD on dialysis Non-compliance with renal dialysis Hypertension End-stage renal disease (ESRD) Diabetic foot ulcer associated with type 2 diabetes mellitus Diabetes ESRD needing dialysis Cardiomyopathy HFrEF (heart failure with reduced ejection fraction) delivery delivered Anemia in chronic kidney disease (CKD) CKD (chronic kidney disease) Headache, migraine Abnormal finding on echocardiogram Elevated troponin Chest pain Acute worsening of stage 3 chronic kidney disease Generalized edema Sepsis Cellulitis Pleural effusion CHF (congestive heart failure) (~06/07/22) Tachycardia Atypical chest pain Bone infection PAD (peripheral artery disease) Severe anemia Cellulitis and abscess of foot DM foot ulcer Osteomyelitis Asthma Depression with anxiety Diabetic retinopathy Type 2 diabetes mellitus with hyperglycemia, with long-term current use of insulin Blind right eye Diabetes Back pain Family History Mother Coronary artery disease Myocardial infarction Stroke Diabetes mellitus Father Myocardial infarction Surgical History Tubal ligation status Previous section Hx laparoscopic cholecystectomy Hx of surgical procedure (~09/11/23) 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 Social History Household Members: Family Household Members Other:: Sister Housing: House Are you a primary memory care director to a significant other at home: No Do you presently have visiting nurse or other home services: No Unable to assess alcohol history related to: Unknown Alcohol intake: never Comment: Remain w/ pt on commode. Patient Tobacco Use Status: Never used Tobacco e-Cigarette/Vaping Use: Never Used Second Hand Smoke Exposure: No Advance Directives: Yes Advance Directives on File: Yes Advance Directives Date on File: 09/04/23 service: No Current occupational status: unemployed and disabled Gender identity: Female Meds Allergies Allergy/AdvReac Type Severity Reaction Status Date / Time morphine [MORPHINE] Allergy Intermediate Itching Verified 05/25/24 13:48 azithromycin [From Zithromax] Allergy Hives Verified 05/25/24 13:48 gabapentin Allergy Facial Verified 05/25/24 13:48 Swelling tramadol Allergy Facial Verified 05/25/24 13:48 Swelling vancomycin Allergy Anaphylaxis Verified 05/25/24 13:48 Active Medications: Current Medications Acetaminophen (Acetaminophen 325 Mg Tablet) 650 mg PO Q6H PRN PRN Reason: Pain, Mild 1-3,fever,headache Calcium Carbonate (Calcium Carbonate 750 Mg Tab.Chew) 750 mg PO Q4H PRN PRN Reason: Heartburn Heparin Sodium (Porcine) (Heparin Sodium,Porcine 5,000 Unit/Ml Vial) 5,000 unit SUBCUT Q12H VASILE Daptomycin 580 mg/ Sodium (Chloride) 61.6 mls @ 99.982 mls/hr IV Q24H VASILE Cefepime HCl 1 gm/ Sodium (Chloride) 50 mls @ 100 mls/hr IV ONCE ONE Stop: 05/25/24 15:36 Cefepime HCl 0.5 gm/ Sodium (Chloride) 50 mls @ 100 mls/hr IV DAILY VASILE Magnesium Hydroxide (Milk Of Magnesia 30 Ml Oral.Susp) 30 ml PO DAILY PRN PRN Reason: Constipation Melatonin (Melatonin 3 Mg Tablet) 6 mg PO BEDTIME PRN PRN Reason: Insomnia Ondansetron HCl (Ondansetron Hcl 4 Mg/2 Ml Vial) 4 mg IVPUSH Q8H PRN PRN Reason: Nausea and Vomiting Sodium Chloride (0.9 % Sodium Chloride Flush 3 Ml Syringe) 3 ml IVFLUSH QSHIFT [facility] Home Medications ?Medication ?Instructions ?Recorded ?Confirmed ?Last Taken ?Type albuterol sulfate 90 mcg/actuation 2 puff inhalation Q6H PRN wheezing 01/15/24 03/11/24 Unknown History aerosol inhaler (Ventolin HFA) lidocaine 5 % topical patch 1 patch topical DAILY 01/15/24 03/11/24 02/24/24 History nitroglycerin 0.4 mg sublingual 0.4 mg sublingual DIRECTED PRN 01/15/24 03/11/24 Unknown History tablet Angina acetaminophen 325 mg tablet 650 mg PO Q4H PRN mild pain 03/11/24 03/11/24 Unknown History Physical Exam 2 Vital Signs and Narrative: Vital Signs: Last Vital Signs Temp 102.9 F H 05/25/24 13:48 Pulse 110 H 05/25/24 13:48 Resp 25 H 05/25/24 13:48 BP 182/90 H 05/25/24 13:48 Pulse Ox 92 05/25/24 13:48 O2 Del Method Room Air 05/25/24 13:48 BMI result Body Mass Index 26.6 Gen: in no acute distress HEENT: sclera anicteric, moist mucus membranes, blind Neck: supple, left subclavian hemodialysis catheter without any tenderness or purulence Lungs: clear to auscultation bilaterally Heart: regular rate and rhythm, no murmurs Abd: soft, generalized tenderness without rebound, non-distended Ext: no edema, s/p bilateral TMAs Skin: warm/well-perfused, multiple dry ulcers in various stages of healing on TMAs Neuro: alert and oriented x3, no focal weakness Psych: appropriate affect Results Labs 05/25/24 13:59 05/25/24 13:59 Labs: Laboratory Results - last 24 hr 05/25/24 05/25/24 05/25/24 13:59 14:04 14:07 MCV 84.6 MCH 28.0 MCHC 33.2 RDW 15.0 Plt Count 137 L MPV 11.1 Immature Gran % (Auto) 0.4 Neut % (Auto) 87.2 H Lymph % (Auto) 3.9 L Dillon % (Auto) 8.3 Eos % (Auto) 0.1 Baso % (Auto) 0.1 Lymph # (Auto) 0.5 L Dillon # (Auto) 1.1 Eos # (Auto) 0.0 Baso # (Auto) 0.0 Abs Immat Gran (auto) 0.05 H Absolute Neuts (auto) 11.7 H Absolute Nucleated RBC 0.000 Nucleated RBC % (auto) 0.0 Anion Gap 22 H Estim Creat Clear Calc 10.2 Estimated GFR 6 Random Glucose 110 Lactic Acid 2.5 H* Calcium 9.2 D Total Bilirubin 1.7 H AST 50 H ALT 23 Alkaline Phosphatase 205 H Total Protein 9.6 H Albumin 4.1 Influenza Type A (PCR) NEGATIVE Influenza Type B (PCR) NEGATIVE RSV RNA Qual (PCR) NEGATIVE SARS-CoV-2 RNA (RT-PCR) NEGATIVE Assessment and Plan (1) Sepsis: Status: Acute Plan 33yo F with ESRD on HD TuThSa, DM2 with polyneuropathy/retinopathy with blindness, PAD s/p bilateral TMA, HTN, chronic hypoxic respiratory failure on 3- 4L O2, HFrEF, mood disorder, chronic pain with opioid-seeking behavior, and history multiple line infections with bacteremia with MSSA, Stenotrophomonas, and Pseudomonas. Presenting with acute nausea, vomiting, abdominal pain, and diarrhea and found to be septic. sepsis - admit to telemetry - likely sources line infection vs. intra-abdominal; will follow peripheral blood cultures and also obtain HD line culture [has to be done by HD RN]; check CT A/P - send stool for C difficile PCR + GI panel - empiric broad-spectrum coverage with daptomycin and cefepime, renally dosed - ID consult hyperK ESRD on HD - no EKG changes; give 1 dose Lokelma; Nephrology consult for urgent HD HTN - carvedilol + hydralazine chronic hypoxic resp failure - 3L O2 bilateral TMA - Wound Care consults DM2 - correction-dose lispro VTE prophylaxis - UFH dispo - TBD code status - full I anticipate that the patient will stay at least 2 midnights as an inpatient in the hospital due to the above reasons. It is neither reasonable nor safe to care for them in a less acute setting. Quality Stroke Does the patient have a stroke diagnosis?: No VTE Prior VTE?: No VTE Risk Level:: Medical - moderate - high VTE Device Contraindication: N/A - Device Ordered VTE Drug Contraindication: N/A - Med Ordered
[2024-05-25] MEDS: cefEPime HCl 1 GM in 0.9 % Sodium Chloride 50 ML IV (15:39)
[2024-05-25 15:40] VITALS: BP 92/46; PULSE 88; RESP 20; TEMP 37.9; O2SAT 92
--- NOTE | 2024-05-25 15:46 | PC.NURSE ---
patient presented to the ED from home, per ems patient family stated that she has nausea/vomiting and diarrhea x1 day, with a fever of 104 at home. patient presents to ED, tremulous, rectal temp 102.9, IV access obtained in the left FA #[id number], labs drawn and sent. patient is at her baseline mentation, patient blind. patient answering questions appropriately, states she started to feel unwell after dialysis yesterday, patient states she was able to complete dialysis session yesterday. patient has dialysis port on the left which is covered with dry, clean dressing. patient changed into hospital attire, patient skin dry and intact, patient bilat feet have red clean looking wounds, no drainage, clean appearing. patient has been medicated per APR, refused heparin injection. patient given sip of ice water as requested. VSS at this time.
[2024-05-25] MEDS: Sodium Zirconium Cyclosilicate 10 GM POWD.PACK PO (15:51)
[2024-05-25 16:10] LABS: Reflex Lactate? Lactic Acid Added
[2024-05-25] MEDS: iohexoL 350 MG/ML 100 ML INFUS..BTL IV (16:44)
[2024-05-25] MEDS: SODIUM CHLORIDE 0.9% IV (16:44)
[2024-05-25] MEDS: DAPTOMYCIN IV (16:44)
[2024-05-25 16:45] VITALS: BP 133/67; PULSE 92; RESP 12
--- NOTE | 2024-05-25 16:59 | PHA.MEDREC ---
Addendum entered by Asvhin Ramey [facility] 05/25/24 17:14: MED REC CHECKED BY [facility] Original Note: Pharmacy Consult ? Medication Reconciliation Pharmacy has completed the medication reconciliation. Spoke with patient and patients sister (HCP) over the phone to confirm medications. Patient said she is not taking tamsulosin. Patient said she did not take any medications today.
[2024-05-25 17:35] VITALS: BP 154/80; PULSE 95; RESP 14; TEMP 37.3; O2SAT 96
[2024-05-25] MEDS: oxyCODONE HCl Immed Release 5 MG TABLET PO (17:38)
--- NOTE | 2024-05-25 17:40 | PC.NURSE ---
patient states she has all over body pain 10/10, medicated per MAR with PRN oxycodone
[2024-05-25 17:45] LABS: Anion Gap 19 (12-20); Blood Urea Nitrogen 59 mg/dL (9-16); Calcium 8.4 mg/dL (8.4-10.2); Carbon Dioxide 23 mmol/L (22-29); Chloride 95 mmol/L (96-108); Estimated Glomerular Filt Rate 6; Glucose Random 103 mg/dL (60-115); Potassium 5.5 mmol/L (3.3-5.1); Sodium 131 mmol/L (135-145)
--- NOTE | 2024-05-25 19:13 | PC.NURSE ---
this rn assumed care of pt, pt resting in stretcher, eyes closed, respirations even and unlabored. sinus tach on tele 100-102bpm.
--- NOTE | 2024-05-25 19:59 | PC.NURSE ---
pt actively throwing up at this time, pt medicated per mar with PRN zofran with good effect.
[2024-05-25 20:27] VITALS: BP 148/80; PULSE 113; RESP 20; O2SAT 95
--- NOTE | 2024-05-25 21:07 | PC.NURSE ---
pt refused PO medications, pt noted to be throwing up at this time,reached out to provider via tiger for more nausea medications.
[2024-05-25] MEDS: HYDROmorphone HCl 0.5 MG/0.5 ML SYRINGE IVPUSH (22:53)
[2024-05-26 01:35] VITALS: BMI 26.2
[2024-05-26 01:46] VITALS: BP 135/68; PULSE 88; RESP 16; TEMP 37.6; O2SAT 95
--- NOTE | 2024-05-26 02:11 | HO.SKINPHOTO ---
Location: L foot Location: R Foot
[2024-05-26 06:00] LABS: Glucose, Whole Blood 120 mg/dL (60-115)
[2024-05-26 07:35] VITALS: BP 123/62; PULSE 82; RESP 20; TEMP 36.2; O2SAT 100
[2024-05-26 08:13] LABS: Glucose, Whole Blood 102 mg/dL (60-115)
[2024-05-26] MEDS: cefEPime HCl 0.5 GM in 0.9 % Sodium Chloride 50 ML IV (09:47)
[2024-05-26] MEDS: ondansetron HCL 4 MG/2 ML VIAL IVPUSH (09:51)
[2024-05-26] MEDS: 0.9 % Sodium Chloride Flush 3 ML SYRINGE IVFLUSH ×2 (09:52→16:02)
[2024-05-26 11:26] VITALS: RESP 18
[2024-05-26] MEDS: HYDROmorphone HCl 1 MG/ML SYRINGE IVPUSH ×3 (11:26→20:51)
[2024-05-26 12:00] VITALS: BP 129/57; PULSE 90; RESP 20; TEMP 36.9; O2SAT 96
[2024-05-26 13:08] LABS: Glucose, Whole Blood 105 mg/dL (60-115)
[2024-05-26 15:49] VITALS: BP 129/60; PULSE 82; RESP 20; TEMP 36.7; O2SAT 100
--- NOTE | 2024-05-26 15:54 | MHC.CM.PN ---
IMM 05/26/24, Pt lives with her sister, she has home O2 from [employer], and [facility] services 50.75 hrs per week from [facility]. She goes to HD TTS. PCP: Genevieve Casillas, HCP is her sister. Transport home will be by BLS. DCP: home, resume services. CM to follow for DC needs.
--- NOTE | 2024-05-26 15:58 | HO.PM.IMPN ---
Subjective Subjective Date of Service: 05/26/24 Interval History: No acute issues overnight. This afternoon nausea and vomiting Review of Systems Denies chest pain Denies shortness of breath Admits nausea vomiting no diarrhea Denies fever chills Physical Exam Vital Signs: Vital Signs: Last Vital Signs Temp 98.0 F 05/26/24 15:49 Pulse 82 05/26/24 15:49 Resp 20 05/26/24 15:49 BP 129/60 05/26/24 15:49 Pulse Ox 100 05/26/24 15:49 O2 Del Method Nasal Cannula 05/26/24 15:49 O2 Flow Rate 2 05/26/24 15:49 BMI result Body Mass Index 26.2 Const: Other: Awake alert uncomfortable secondary to vomiting Resp: Other: Clear to auscultation bilaterally no rales rhonchi or wheezes Cardio: Other: No S4; positive S1-S2 3 murmurs rubs or gallops GI: Other: Soft nontender nondistended normoactive bowel sounds Extrem: Other: No edema bilaterally Objective Data Active Medications Acetaminophen (Acetaminophen 325 Mg Tablet) 650 mg PO Q6H PRN PRN Reason: Pain, Mild 1-3,fever,headache Albuterol Sulfate (Albuterol Sulfate 90 Mcg 8 Gm Inhaler) 2 puff INHALE RQ4H PRN PRN Reason: shortness of breath/wheezing Calcium Carbonate (Calcium Carbonate 750 Mg Tab.Chew) 750 mg PO Q4H PRN PRN Reason: Heartburn Carvedilol (Carvedilol 12.5 Mg Tablet) 12.5 mg PO BID [facility]; Protocol Dextrose (Dextrose 50 % 25 Gm/50 Ml Syringe) 25 gm IVPUSH Q15M PRN; Protocol PRN Reason: per Hypoglycemia Standing Ord. Glucose (Glucose Gel 15 Gm Gel..Gram.) 15 gm PO Q15M PRN; Protocol PRN Reason: per Hypoglycemia Standing Ord. Heparin Sodium (Porcine) (Heparin Sodium,Porcine 5,000 Unit/Ml Vial) 5,000 unit SUBCUT Q12H [facility] Last Admin: 05/26/24 02:44 Dose: Not Given Documented By: KADIE Non-Admin Reason: Patient Refused Hydralazine HCl (Hydralazine Hcl 50 Mg Tablet) 50 mg PO TID [facility]; Protocol Hydromorphone HCl (Hydromorphone Hcl 1 Mg/Ml Syringe) 1 mg IVPUSH Q4H PRN; Protocol PRN Reason: Pain, Severe (Pain Scale 7-10) Last Admin: 05/26/24 15:54 Dose: 1 mg Documented By: ANASTASIIA Daptomycin 580 mg/ Sodium (Chloride) 61.6 mls @ 99.982 mls/hr IV Q24H [facility] Last Infusion: 05/25/24 17:42 Dose: Infused Documented By: ALICE Cefepime HCl 0.5 gm/ Sodium (Chloride) 50 mls @ 100 mls/hr IV DAILY [facility] Last Infusion: 05/26/24 10:53 Dose: Infused Documented By: ANASTASIIA Insulin Human Lispro (Insulin Lispro 100 Unit/Ml 3 Ml Vial) 0 unit SUBCUT QIDACHS [facility]; Protocol Last Admin: 05/26/24 12:49 Dose: Not Given Documented By: ANASTASIIA Non-Admin Reason: No Insulin Coverage Lidocaine (Lidocaine 4 % Patch Adh..Patch) 1 patch TRANSDERMA DAILY PRN PRN Reason: Pain Magnesium Hydroxide (Milk Of Magnesia 30 Ml Oral.Susp) 30 ml PO DAILY PRN PRN Reason: Constipation Melatonin (Melatonin 3 Mg Tablet) 6 mg PO BEDTIME PRN PRN Reason: Insomnia Ondansetron HCl (Ondansetron Hcl 4 Mg/2 Ml Vial) 4 mg IVPUSH Q8H PRN PRN Reason: Nausea and Vomiting Last Admin: 05/26/24 09:51 Dose: 4 mg Documented By: ANASTASIIA Oxycodone HCl (Oxycodone Hcl Immed Release 5 Mg Tablet) 5 mg PO Q8H PRN PRN Reason: pain, moderate Last Admin: 05/25/24 17:38 Dose: 5 mg Documented By: ALICE Sodium Chloride (0.9 % Sodium Chloride Flush 3 Ml Syringe) 3 ml IVFLUSH QSHIFT [facility] Last Admin: 05/26/24 09:52 Dose: 3 ml Documented By: ANASTASIIA Labs 05/25/24 13:59 05/25/24 17:23 Labs: Laboratory Results - last 24 hr 05/25/24 05/26/24 05/26/24 17:23 04:39 07:35 Anion Gap 19 Estim Creat Clear Calc 10.0 Estimated GFR 6 POC Glucose 120 H 102 Random Glucose 103 Lactic Acid F/U @ 2Hr 1.0 Calcium 8.4 D 05/26/24 11:44 Anion Gap Estim Creat Clear Calc Estimated GFR POC Glucose 105 Random Glucose Lactic Acid F/U @ 2Hr Calcium Microbiology Microbiology Results: Microbiology 05/25/24 14:24 Blood Culture - Preliminary Blood - Venous Gram positive cocci 05/25/24 14:07 Blood Culture - Preliminary Blood - Venous Gram positive cocci Assessment and Plan (1) Bacteremia: Status: Acute (2) End stage renal disease on dialysis: Status: Acute Plan 33yo F with ESRD on HD TuThSa, DM2 with polyneuropathy/retinopathy with blindness, PAD s/p bilateral TMA, HTN, chronic hypoxic respiratory failure on 3-4L O2, HFrEF, mood disorder, chronic pain with opioid-seeking behavior, and history multiple line infections with bacteremia with MSSA, Stenotrophomonas, and Pseudomonas. Presenting with acute nausea, vomiting, abdominal pain, and diarrhea and found to be septic. 1.Sepsis/Bacteremia - preliminary blood cultures 2/2 Gram-positive cocci - likely sources line infection vs. intra-abdominal; will follow peripheral blood cultures and also obtain HD line culture [has to be done by HD RN]; check CT A/P - daptomycin/cefepime,(2) -ID consult pending 2.ESRD on HD - HD as per renal -follow renals/divalents 3.HTN -acceptable control on current therapies -adjust as indicated 4.DM2 -acceptable control on current therapies -lispro correctional scale -adjust as indicated Heparin Full code Requires ongoing hospitalization for IV antibiotics to treat Gram-positive cocci in both bottles pending ID Quality Stroke Does the patient have a stroke diagnosis?: No VTE Prior VTE?: No VTE Risk Level:: Medical - moderate - high VTE Device Contraindication: N/A - Device Ordered VTE Drug Contraindication: N/A - Med Ordered
[2024-05-26] MEDS: DAPTOMYCIN IV (16:02)
[2024-05-26] MEDS: SODIUM CHLORIDE 0.9% IV (16:02)
[2024-05-26] MEDS: Prochlorperazine Edisylate 10 MG/2 ML VIAL 5 MG IVPUSH (16:07)
--- NOTE | 2024-05-26 16:26 | P.PNNP_ITS ---
Subjective Subjective Date of Service: 05/26/24 Interval history: RTANE consulted fo ESRD management and ques of recurrent bactermia 33yo F with ESRD on HD TuThSa, DM2 with polyneuropathy/retinopathy with blindness, PAD s/p bilateral TMA, HTN, chronic hypoxic respiratory failure on 3- 4L O2, HFrEF, mood disorder, chronic pain with opioid-seeking behavior, and history multiple line infections with bacteremia with MSSA, Stenotrophomonas, and Pseudomonas. Presented to ER sith GI sxms and Bld cult pos for GPC [place] feeling better Physical Exam 2 Vital Signs: Vital Signs: Last Vital Signs Temp 98.0 F 05/26/24 15:49 Pulse 82 05/26/24 15:49 Resp 20 05/26/24 15:49 BP 129/60 05/26/24 15:49 Pulse Ox 100 05/26/24 15:49 O2 Del Method Nasal Cannula 05/26/24 15:49 O2 Flow Rate 2 05/26/24 15:49 BMI result Body Mass Index 26.2 Const: Other: Awake alert uncomfortable secondary to vomiting Resp: Other: Clear to auscultation bilaterally no rales rhonchi or wheezes Cardio: Other: No S4; positive S1-S2 3 murmurs rubs or gallops GI: Other: Soft nontender nondistended normoactive bowel sounds Extrem: Other: No edema bilaterally Objective Data Labs 05/25/24 13:59 05/25/24 17:23 Labs: Laboratory Results - last 24 hr 05/25/24 05/26/24 05/26/24 17:23 04:39 07:35 Sodium 131 L Potassium 5.5 H Chloride 95 L Carbon Dioxide 23 Anion Gap 19 BUN 59 H Creatinine 7.76 H* Estim Creat Clear Calc 10.0 Estimated GFR 6 POC Glucose 120 H 102 Random Glucose 103 Lactic Acid F/U @ 2Hr 1.0 Calcium 8.4 D 05/26/24 11:44 Sodium Potassium Chloride Carbon Dioxide Anion Gap BUN Creatinine Estim Creat Clear Calc Estimated GFR POC Glucose 105 Random Glucose Lactic Acid F/U @ 2Hr Calcium Microbiology Microbiology Results: Microbiology 05/25/24 14:24 Blood - Venous Blood Culture - Preliminary Gram positive cocci 05/25/24 14:07 Blood - Venous Blood Culture - Preliminary Gram positive cocci Procedures Date of Service Date of Service: 05/26/24 Assessment & Plan Assessment and plan (1) Bacteremia: Status: Acute (2) End stage renal disease on dialysis: Status: Acute Plan 1. ESRD: TTS 2. Bacteremia with GPC: will need Pc ath removed and card echo and OD conusltation 3. HyperK: repeat K ordered and Lokelma as next Hd schedueld for Tues unless repeat K too high to manaeg medically 4. MDB of CKD REC: Lokelma and stat K ordered and depending on resutls HD today vs in am; ABX as noted and most likely remove Pcath after HD given likely Pcath is seeded--need to await final cult to see if its Staph Auresu vs contaminate Staph Epi ( doubt the latter given 2/2 GPC) Time Spent With Patient Time: Total time managing care of this patient today ____ minutes. Progress Note: Quality Stroke Does the patient have a stroke diagnosis?: No
[2024-05-26] MEDS: Sodium Zirconium Cyclosilicate 10 GM POWD.PACK PO (16:49)
[2024-05-26] MEDS: diphenhydrAMINE HCL 50 MG/ML VIAL 25 MG IVPUSH (16:49)
--- NOTE | 2024-05-26 16:49 | HO.WOUND ---
Wound Consult: Initial 33yr old female? admitted to [facility] on 05/25/24 - See progress notes and H&P for detailed history.? 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 Wound consult follow up for Bilateral lower foot wounds.? Todays assessment is detailed below. ??TT to provider to consider Surgery consult for left plantar debridement. Left Plantar Diabetic Wound? - dry callused resurfaced - central open area with creamy yellow drainage - seropurulent drainage - odor noted - TT to provider to consider surgical debridement of callus. The paeriwound is noted for dark nonblanchable purple lifted pockets noted. recommend durafiber AG Right Plantar Diabetic Wound? -clean red pink wound bed - dry callused epidermal layer noted. no induration no fluctance no odor noted. [place] with saline and durafiber AG Right Dorsal Diabetic Wound? - red clean wound bed - epidermal lifting noted - xoroform applied to provide moist wound healing. Bilateral Heels noted to be intact - hyperpigmented tissue noted but no open wounds noted. Overall her feet appear to be in good condition considering what they have looked like during previous admissions. She reports she has not been skipping her Dialysis and she feels this has made a difference. I confirmed this would likely be helping her skin hela and stay intact. Recommendations: 1. Turn and Reposition every 2 hours and as needed for patient comfort.? Use pillows or wedges to support off loading positions. 2. Off Load all bony prominences with use of pillows and heel boots if needed.? Apply Preventative foams where needed. ? 3. Monitor for incontinence and moisture control, use barrier creams when needed for prevention and treatment. 4. Provide adequate and supplemental nutrition.? 5. When applicable maintain blood glucose levels per Providers order. Bilateral Heels - Off load pressure with pillows. Left Plantar and Right Plantar - Cleanse with NS, pat dry. Apply skin prep allow to dry. Cover wound bed with Durafiber AG, cover with dry gauze, ABD pad and wrap. Change every other day. Right Dorsal - Cleanse with NS apply xeroform to wound bed cover with ABD pad and wrap. Change every other day. Re-consult wound care Nurse for wound deterioration or wound changes.
[2024-05-26 16:50] LABS: Hematocrit 33.5 % (37.0-47.0); Hemoglobin 10.6 g/dl (12.0-16.0); Mean Corpuscular HGB Conc 31.6 g/dl (31.0-35.0); Mean Corpuscular Hemoglobin 27.9 pg (27.0-33.0); Mean Corpuscular Volume 88.2 fL (80.0-98.0); Platelet Count 82 X10*3/uL (160-400); Red Cell Distribution Width 15.5 % (11.0-16.0); White Blood Count 8.7 X10*3/uL (4.8-10.8)
[2024-05-26 17:10] LABS: Anion Gap 22 (12-20); Blood Urea Nitrogen 83 mg/dL (9-16); Calcium 8.3 mg/dL (8.4-10.2); Carbon Dioxide 22 mmol/L (22-29); Chloride 93 mmol/L (96-108); Creatinine Clr Calc Pharmacy 7.8; Estimated Glomerular Filt Rate 4; Glucose Random 80 mg/dL (60-115); Potassium 5.3 mmol/L (3.3-5.1); Sodium 132 mmol/L (135-145)
[2024-05-26 18:01] LABS: Glucose, Whole Blood 90 mg/dL (60-115)
[2024-05-26 23:06] LABS: Glucose, Whole Blood 77 mg/dL (60-115)
[2024-05-26 23:54] VITALS: BP 121/58; PULSE 81; RESP 19; TEMP 36.7; O2SAT 97
[2024-05-27 02:33] VITALS: BP 136/60; PULSE 89; RESP 19; O2SAT 98
[2024-05-27] MEDS: Prochlorperazine Edisylate 10 MG/2 ML VIAL 5 MG IVPUSH ×2 (02:50→09:08)
[2024-05-27] MEDS: diphenhydrAMINE HCL 50 MG/ML VIAL 25 MG IVPUSH ×3 (02:51→20:21)
[2024-05-27] MEDS: HYDROmorphone HCl 1 MG/ML SYRINGE IVPUSH ×4 (02:52→20:21)
[2024-05-27] MEDS: 0.9 % Sodium Chloride Flush 3 ML SYRINGE IVFLUSH ×3 (02:52→20:21)
[2024-05-27 06:54] VITALS: BP 163/80; PULSE 86; RESP 18; TEMP 36.2; O2SAT 99
[2024-05-27 07:57] LABS: Glucose, Whole Blood 63 mg/dL (60-115)
[2024-05-27 07:57] LABS: Glucose, Whole Blood 55 mg/dL (60-115)
[2024-05-27 08:22] LABS: Glucose, Whole Blood 99 mg/dL (60-115)
[2024-05-27 10:57] VITALS: BP 121/62; PULSE 81; RESP 18; TEMP 36.4; O2SAT 96
[2024-05-27 11:06] LABS: Glucose, Whole Blood 122 mg/dL (60-115)
[2024-05-27] MEDS: cefEPime HCl 0.5 GM in 0.9 % Sodium Chloride 50 ML IV (11:14)
--- NOTE | 2024-05-27 12:24 | HO.PM.IMPN ---
Subjective Subjective Date of Service: 05/28/24 Interval History: being followed for Gram-positive bacteremia feeling better complaining of persistent chronic nausea no vomiting no abdominal pain denies fever, no chills, tolerating diet scheduled for hemodialysis today Review of Systems all other system reviewed and are negative Physical Exam Vital Signs: Vital Signs: Last Vital Signs Temp 97.5 F 05/27/24 10:57 Pulse 81 05/27/24 10:57 Resp 18 05/27/24 10:57 BP 121/62 05/27/24 10:57 Pulse Ox 96 05/27/24 10:57 O2 Del Method Nasal Cannula 05/27/24 10:57 O2 Flow Rate 2 05/27/24 10:57 BMI result Body Mass Index 26.2 Const: Other: Gen: in no acute distress HEENT: sclera anicteric, moist mucus membranes, blind Neck: supple, left subclavian hemodialysis catheter without any tenderness or purulence Lungs: clear to auscultation bilaterally Heart: regular rate and rhythm, no murmurs Abd: soft, non tender, non-distended Ext: no edema, s/p bilateral TMAs Skin: warm/well-perfused, multiple dry ulcers in various stages of healing on TMAs Neuro: alert and oriented x3, no focal weakness Psych: appropriate affect Objective Data Active Medications Acetaminophen (Acetaminophen 325 Mg Tablet) 650 mg PO Q6H PRN PRN Reason: Pain, Mild 1-3,fever,headache Albuterol Sulfate (Albuterol Sulfate 90 Mcg 8 Gm Inhaler) 2 puff INHALE RQ4H PRN PRN Reason: shortness of breath/wheezing Calcium Carbonate (Calcium Carbonate 750 Mg Tab.Chew) 750 mg PO Q4H PRN PRN Reason: Heartburn Carvedilol (Carvedilol 12.5 Mg Tablet) 12.5 mg PO BID [facility]; Protocol Dextrose (Dextrose 50 % 25 Gm/50 Ml Syringe) 25 gm IVPUSH Q15M PRN; Protocol PRN Reason: per Hypoglycemia Standing Ord. Diphenhydramine HCl (Diphenhydramine Hcl 50 Mg/Ml Vial) 25 mg IVPUSH Q6H PRN PRN Reason: Itching Last Admin: 05/27/24 02:51 Dose: 25 mg Documented By: CARLY Glucose (Glucose Gel 15 Gm Gel..Gram.) 15 gm PO Q15M PRN; Protocol PRN Reason: per Hypoglycemia Standing Ord. Heparin Sodium (Porcine) (Heparin Sodium,Porcine 5,000 Unit/Ml Vial) 5,000 unit SUBCUT Q12H [facility] Last Admin: 05/27/24 05:14 Dose: Not Given Documented By: CARLY Non-Admin Reason: Patient Refused Hydralazine HCl (Hydralazine Hcl 50 Mg Tablet) 50 mg PO TID [facility]; Protocol Hydromorphone HCl (Hydromorphone Hcl 1 Mg/Ml Syringe) 1 mg IVPUSH Q4H PRN; Protocol PRN Reason: Pain, Severe (Pain Scale 7-10) Last Admin: 05/27/24 09:09 Dose: 1 mg Documented By: BEAU Daptomycin 580 mg/ Sodium (Chloride) 61.6 mls @ 99.982 mls/hr IV Q24H [facility] Last Infusion: 05/26/24 17:11 Dose: Infused Documented By: ANASTASIIA Cefepime HCl 0.5 gm/ Sodium (Chloride) 50 mls @ 100 mls/hr IV Q24H [facility] Last Admin: 05/27/24 11:14 Dose: 100 mls/hr Documented By: BEAU Insulin Human Lispro (Insulin Lispro 100 Unit/Ml 3 Ml Vial) 0 unit SUBCUT QIDACHS [facility]; Protocol Last Admin: 05/27/24 08:56 Dose: Not Given Documented By: BEAU Non-Admin Reason: No Insulin Coverage Lidocaine (Lidocaine 4 % Patch Adh..Patch) 1 patch TRANSDERMA DAILY PRN PRN Reason: Pain Magnesium Hydroxide (Milk Of Magnesia 30 Ml Oral.Susp) 30 ml PO DAILY PRN PRN Reason: Constipation Melatonin (Melatonin 3 Mg Tablet) 6 mg PO BEDTIME PRN PRN Reason: Insomnia Ondansetron HCl (Ondansetron Hcl 4 Mg/2 Ml Vial) 4 mg IVPUSH Q8H PRN PRN Reason: Nausea and Vomiting Last Admin: 05/26/24 09:51 Dose: 4 mg Documented By: ANASTASIIA Oxycodone HCl (Oxycodone Hcl Immed Release 5 Mg Tablet) 5 mg PO Q8H PRN PRN Reason: pain, moderate Last Admin: 05/25/24 17:38 Dose: 5 mg Documented By: HO.PROVENC Prochlorperazine Edisylate (Prochlorperazine Edisylate 10 Mg/2 Ml Vial) 5 mg IVPUSH Q6H PRN PRN Reason: Nausea and Vomiting Last Admin: 05/27/24 09:08 Dose: 5 mg Documented By: BEAU Sodium Chloride (0.9 % Sodium Chloride Flush 3 Ml Syringe) 3 ml IVFLUSH QSHIFT [facility] Last Admin: 05/27/24 11:20 Dose: Not Given Documented By: BEAU Non-Admin Reason: IV Running Labs 05/27/24 12:57 05/27/24 12:57 Labs: Laboratory Results - last 24 hr 05/26/24 05/26/24 05/26/24 11:44 15:41 16:36 MCV 88.2 MCH 27.9 MCHC 31.6 RDW 15.5 Plt Count 82 L D MPV 12.0 Absolute Nucleated RBC 0.000 Nucleated RBC % (auto) 0.0 Anion Gap 22 H Estim Creat Clear Calc 7.8 Estimated GFR 4 POC Glucose 105 90 Random Glucose 80 Calcium 8.3 L 05/26/24 05/27/24 05/27/24 22:26 07:04 07:33 MCV MCH MCHC RDW Plt Count MPV Absolute Nucleated RBC Nucleated RBC % (auto) Anion Gap Estim Creat Clear Calc Estimated GFR POC Glucose 77 55 L* 63 Random Glucose Calcium 05/27/24 05/27/24 08:03 11:00 MCV MCH MCHC RDW Plt Count MPV Absolute Nucleated RBC Nucleated RBC % (auto) Anion Gap Estim Creat Clear Calc Estimated GFR POC Glucose 99 122 H Random Glucose Calcium Microbiology Microbiology Results: Microbiology 05/25/24 14:24 Blood Culture - Final Blood - Venous Strep agalactiae (Grp B) 05/25/24 14:07 Blood Culture - Final Blood - Venous Strep agalactiae (Grp B) Assessment and Plan (1) Bacteremia: Status: Acute (2) Fever: Status: Acute Plan 33yo F with ESRD on HD TuThSa, DM2 with polyneuropathy/retinopathy with blindness, PAD s/p bilateral TMA, HTN, chronic hypoxic respiratory failure on 3-4L O2, HFrEF, mood disorder, chronic pain with opioid-seeking behavior, and history multiple line infections with bacteremia with MSSA, Stenotrophomonas, and Pseudomonas. Presenting with acute nausea, vomiting, abdominal pain, and diarrhea and found to be septic. sepsis - blood cultures 2/2 grew strep agalactiae group B likely sources line infection vs. wound infection, CT abdomen and pelvis unremarkable, chest x-ray showed no abnormality - stool for C difficile PCR + GI panel un collected, no further diarrhea - continue with daptomycin and cefepime, renally dosed - will discuss with ID regarding antibiotic duration/ treatment/repeat bc x2 hyperK/ ESRD scheduled for hemodialysis Sunday, and Saturdays. HTN continue carvedilol + hydralazine ,follow bp. chronic hypoxic resp failure -stable, on 3L O2 at baseline Bilateral TMA seen by wound nurse Left Plantar Diabetic Wound? - dry callused resurfaced - central open area with creamy yellow drainage - seropurulent drainage - odor noted - consider surgical debridement of callus. periwound is noted for dark,non blanchable purple lifted pockets noted. recommend durafiber AG Bilateral Heels - Off load pressure with pillows. Left Plantar and Right Plantar - Cleanse with NS, pat dry. Apply skin prep allow to dry. Cover wound bed with Durafiber AG, cover with dry gauze, ABD pad and wrap. Change every other day. Right Dorsal - Cleanse with NS apply xeroform to wound bed cover with ABD pad and wrap. Change every other day. DM2 - continue correction-dose lispro VTE prophylaxis heparin code status - full code requiring continued inpatient hospitalization for IV antibiotics and expert consultation Quality Stroke Does the patient have a stroke diagnosis?: No VTE Prior VTE?: No VTE Risk Level:: Medical - moderate - high VTE Device Contraindication: N/A - Device Ordered VTE Drug Contraindication: N/A - Med Ordered
[2024-05-27 13:15] LABS: Hematocrit 31.2 % (37.0-47.0); Hemoglobin 10.2 g/dl (12.0-16.0); Mean Corpuscular HGB Conc 32.7 g/dl (31.0-35.0); Mean Corpuscular Hemoglobin 27.9 pg (27.0-33.0); Mean Corpuscular Volume 85.5 fL (80.0-98.0); Red Blood Count 3.65 X10*6/uL (4.20-5.50); Red Cell Distribution Width 15.1 % (11.0-16.0); White Blood Count 4.8 X10*3/uL (4.8-10.8)
[2024-05-27 13:18] LABS: Platelet Count 67 X10*3/uL (160-400)
[2024-05-27 13:51] LABS: Alanine Aminotransferase < 6 U/L (0-31); Albumin Level 3.3 g/dL (3.5-5.0); Alkaline Phosphatase 161 U/L (39-117); Anion Gap 18 (12-20); Aspartate Amino Transferase 41 U/L (5-31); Bilirubin Total 0.8 mg/dL (0.0-1.0); Blood Urea Nitrogen 73 mg/dL (9-16); Carbon Dioxide 24 mmol/L (22-29); Chloride 94 mmol/L (96-108); Creatinine Clr Calc Pharmacy 9.2; Estimated Glomerular Filt Rate 5; Glucose Fasting 133 mg/dL (60-99); Potassium 3.6 mmol/L (3.3-5.1); Sodium 132 mmol/L (135-145); Total Protein 7.6 g/dL (6.5-8.0)
[2024-05-27 16:00] VITALS: BP 151/71; PULSE 93; RESP 18; TEMP 36.2; O2SAT 95
[2024-05-27 16:25] LABS: Glucose, Whole Blood 111 mg/dL (60-115)
[2024-05-27] MEDS: SODIUM CHLORIDE 0.9% IV (17:34)
[2024-05-27] MEDS: DAPTOMYCIN IV (17:34)
[2024-05-27 19:44] VITALS: BP 150/80; PULSE 90; RESP 16; TEMP 36.9; O2SAT 93
[2024-05-27 20:10] LABS: Glucose, Whole Blood 133 mg/dL (60-115)
[2024-05-27] MEDS: ondansetron HCL 4 MG/2 ML VIAL IVPUSH (20:21)
--- NOTE | 2024-05-27 21:41 | P.PNNP_ITS ---
Subjective Subjective Date of Service: 05/27/24 Interval history: Seen and examined, events noted Physical Exam 2 Vital Signs: Vital Signs: Last Vital Signs Temp 98.5 F 05/27/24 19:44 Pulse 90 05/27/24 19:44 Resp 16 05/27/24 19:44 BP 150/80 H 05/27/24 19:44 Pulse Ox 93 05/27/24 19:44 O2 Del Method Room Air 05/27/24 19:44 O2 Flow Rate 2 05/27/24 10:57 BMI result Body Mass Index 26.2 Const: Other: Awake alert uncomfortable secondary to vomiting Resp: Other: Clear to auscultation bilaterally no rales rhonchi or wheezes Cardio: Other: No S4; positive S1-S2 3 murmurs rubs or gallops GI: Other: Soft nontender nondistended normoactive bowel sounds Extrem: Other: No edema bilaterally Objective Data Labs 05/27/24 12:57 05/27/24 12:57 Labs: Laboratory Results - last 24 hr 05/26/24 05/27/24 05/27/24 22:26 07:04 07:33 WBC RBC Hgb Hct MCV MCH MCHC RDW Plt Count MPV Absolute Nucleated RBC Nucleated RBC % (auto) Sodium Potassium Chloride Carbon Dioxide Anion Gap BUN Creatinine Estim Creat Clear Calc Estimated GFR POC Glucose 77 55 L* 63 Fasting Glucose Calcium Total Bilirubin AST ALT Alkaline Phosphatase Total Protein Albumin 05/27/24 05/27/24 05/27/24 08:03 11:00 12:57 WBC 4.8 RBC 3.65 L Hgb 10.2 L Hct 31.2 L MCV 85.5 MCH 27.9 MCHC 32.7 RDW 15.1 Plt Count 67 L MPV Not Reportable Absolute Nucleated RBC 0.000 Nucleated RBC % (auto) 0.0 Sodium 132 L Potassium 3.6 D Chloride 94 L Carbon Dioxide 24 Anion Gap 18 BUN 73 H Creatinine 8.46 H* Estim Creat Clear Calc 9.2 Estimated GFR 5 POC Glucose 99 122 H Fasting Glucose 133 H Calcium 8.0 L Total Bilirubin 0.8 AST 41 H ALT < 6 Alkaline Phosphatase 161 H Total Protein 7.6 Albumin 3.3 L 05/27/24 05/27/24 16:18 19:59 WBC RBC Hgb Hct MCV MCH MCHC RDW Plt Count MPV Absolute Nucleated RBC Nucleated RBC % (auto) Sodium Potassium Chloride Carbon Dioxide Anion Gap BUN Creatinine Estim Creat Clear Calc Estimated GFR POC Glucose 111 133 H Fasting Glucose Calcium Total Bilirubin AST ALT Alkaline Phosphatase Total Protein Albumin Microbiology Microbiology Results: Microbiology 05/25/24 14:24 Blood - Venous Blood Culture - Final Strep agalactiae (Grp B) 05/25/24 14:07 Blood - Venous Blood Culture - Final Strep agalactiae (Grp B) Procedures Date of Service Date of Service: 05/27/24 Assessment & Plan Assessment and plan (1) Bacteremia: Status: Acute (2) End stage renal disease on dialysis: Status: Acute Plan 1. ESRD: TTS 2. Bacteremia with GPC: will need Pc ath removed and card echo and ID conusltation; ABx as perID 3. HyperK: repeat K ordered and Lokelma as next Hd schedueld for Tues unless repeat K too high to manaeg medically 4. MDB of CKD REC: ID consult, ABX as per ID, will need Pcath removed unles ID feels we can Tx with ABx alone Will follow w team Time Spent With Patient Time: Total time managing care of this patient today ____ minutes. Progress Note: Quality Stroke Does the patient have a stroke diagnosis?: No
--- NOTE | 2024-05-27 22:03 | P.CNID_ITS ---
History of Present Illness Data of Consult Service Date: 05/26/24 Requesting physician: Steve Shepherd Primary Care Provider: Genevieve Casillas MD HPI Reason for consult: bacteremia, Group B strep She presents with worsening redness on bilateral feet. 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 She has Group B strep x2 from blood. Review of Systems 2 Review of Systems: Yes all other systems are reviewed and are negative [facility] Past Medical History Medical History Hypotonic neurogenic bladder Diabetic polyneuropathy ESRD (end stage renal disease) on dialysis Hypertensive emergency Non-compliance with renal dialysis Decompensated heart failure Congestive heart failure Renal failure Hypertension, uncontrolled Medical non-compliance Pericarditis Unspecified hypertension, condition or complication Metabolic acidosis Gastroparesis End stage chronic kidney disease Chronic kidney disease Anemia Chronic foot ulcer Plantar ulcer of left foot Major depressive disorder, single episode, severe ESRD (end stage renal disease) Non-compliance with renal dialysis Hypertensive urgency MDD (major depressive disorder), recurrent episode MDD (major depressive disorder) Renal failure Foot ulcer CKD (chronic kidney disease) Hypertension Diabetic foot Hyperkalemia Vomiting Renal failure Hypertension Migraine Chronic pain ESRD on dialysis Non-compliance with renal dialysis Hypertension End-stage renal disease (ESRD) Diabetic foot ulcer associated with type 2 diabetes mellitus Diabetes ESRD needing dialysis Cardiomyopathy HFrEF (heart failure with reduced ejection fraction) delivery delivered Anemia in chronic kidney disease (CKD) CKD (chronic kidney disease) Headache, migraine Abnormal finding on echocardiogram Elevated troponin Chest pain Acute worsening of stage 3 chronic kidney disease Generalized edema Sepsis Cellulitis Pleural effusion CHF (congestive heart failure) (~06/07/22) Tachycardia Atypical chest pain Bone infection PAD (peripheral artery disease) Severe anemia Cellulitis and abscess of foot DM foot ulcer Osteomyelitis Asthma Depression with anxiety Diabetic retinopathy Type 2 diabetes mellitus with hyperglycemia, with long-term current use of insulin Blind right eye Diabetes Back pain Family History Family History Mother Coronary artery disease Myocardial infarction Stroke Diabetes mellitus Father Myocardial infarction Family history: reviewed and not pertinent Surgical History Surgical History Tubal ligation status Previous section Hx laparoscopic cholecystectomy Hx of surgical procedure (~09/11/23) 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 Social History Social History Household Members: Other Household Members Other:: sister Housing: Apartment Are you a primary rn acute care to a significant other at home: No Do you presently have visiting nurse or other home services: No Unable to assess alcohol history related to: Unknown Alcohol intake: never Comment: Remain w/ pt on commode. Patient Tobacco Use Status: Never used Tobacco e-Cigarette/Vaping Use: Never Used Second Hand Smoke Exposure: No Advance Directives Date on File: 09/04/23 service: No Current occupational status: unemployed and disabled Gender identity: Female Meds Allergies Allergy/AdvReac Type Severity Reaction Status Date / Time morphine [MORPHINE] Allergy Intermediate Itching Verified 05/25/24 13:48 azithromycin [From Zithromax] Allergy Hives Verified 05/25/24 13:48 gabapentin Allergy Facial Verified 05/25/24 13:48 Swelling tramadol Allergy Facial Verified 05/25/24 13:48 Swelling vancomycin Allergy Anaphylaxis Verified 05/25/24 13:48 Active Medications: Current Medications Acetaminophen (Acetaminophen 325 Mg Tablet) 650 mg PO Q6H PRN PRN Reason: Pain, Mild 1-3,fever,headache Albuterol Sulfate (Albuterol Sulfate 90 Mcg 8 Gm Inhaler) 2 puff INHALE RQ4H PRN PRN Reason: shortness of breath/wheezing Calcium Carbonate (Calcium Carbonate 750 Mg Tab.Chew) 750 mg PO Q4H PRN PRN Reason: Heartburn Carvedilol (Carvedilol 12.5 Mg Tablet) 12.5 mg PO BID [facility]; Protocol Dextrose (Dextrose 50 % 25 Gm/50 Ml Syringe) 25 gm IVPUSH Q15M PRN; Protocol PRN Reason: per Hypoglycemia Standing Ord. Diphenhydramine HCl (Diphenhydramine Hcl 50 Mg/Ml Vial) 25 mg IVPUSH Q6H PRN PRN Reason: Itching Last Admin: 05/27/24 20:21 Dose: 25 mg Glucose (Glucose Gel 15 Gm Gel..Gram.) 15 gm PO Q15M PRN; Protocol PRN Reason: per Hypoglycemia Standing Ord. Heparin Sodium (Porcine) (Heparin Sodium,Porcine 5,000 Unit/Ml Vial) 5,000 unit SUBCUT Q12H [facility] Last Admin: 05/27/24 17:05 Dose: Not Given Hydralazine HCl (Hydralazine Hcl 50 Mg Tablet) 50 mg PO TID [facility]; Protocol Hydromorphone HCl (Hydromorphone Hcl 1 Mg/Ml Syringe) 1 mg IVPUSH Q4H PRN; Protocol PRN Reason: Pain, Severe (Pain Scale 7-10) Last Admin: 05/27/24 20:21 Dose: 1 mg Daptomycin 580 mg/ Sodium (Chloride) 61.6 mls @ 99.982 mls/hr IV Q24H [facility] Last Infusion: 05/27/24 18:36 Dose: Infused Cefepime HCl 0.5 gm/ Sodium (Chloride) 50 mls @ 100 mls/hr IV Q24H [facility] Last Infusion: 05/27/24 12:36 Dose: Infused Insulin Human Lispro (Insulin Lispro 100 Unit/Ml 3 Ml Vial) 0 unit SUBCUT QIDACHS [facility]; Protocol Last Admin: 05/27/24 20:14 Dose: Not Given Lidocaine (Lidocaine 4 % Patch Adh..Patch) 1 patch TRANSDERMA DAILY PRN PRN Reason: Pain Magnesium Hydroxide (Milk Of Magnesia 30 Ml Oral.Susp) 30 ml PO DAILY PRN PRN Reason: Constipation Melatonin (Melatonin 3 Mg Tablet) 6 mg PO BEDTIME PRN PRN Reason: Insomnia Ondansetron HCl (Ondansetron Hcl 4 Mg/2 Ml Vial) 4 mg IVPUSH Q8H PRN PRN Reason: Nausea and Vomiting Last Admin: 05/27/24 20:21 Dose: 4 mg Oxycodone HCl (Oxycodone Hcl Immed Release 5 Mg Tablet) 5 mg PO Q8H PRN PRN Reason: pain, moderate Last Admin: 05/25/24 17:38 Dose: 5 mg Prochlorperazine Edisylate (Prochlorperazine Edisylate 10 Mg/2 Ml Vial) 5 mg IVPUSH Q6H PRN PRN Reason: Nausea and Vomiting Last Admin: 05/27/24 09:08 Dose: 5 mg Sodium Chloride (0.9 % Sodium Chloride Flush 3 Ml Syringe) [facility] Last Admin: 05/27/24 20:21 Dose: 3 ml Home Medications ?Medication ?Instructions ?Recorded ?Confirmed ?Last Taken ?Type albuterol sulfate 90 mcg/actuation 2 puff inhalation Q6H PRN wheezing 01/15/24 05/25/24 Unknown History aerosol inhaler (Ventolin HFA) lidocaine 5 % topical patch 1 patch topical DAILY PRN Pain 01/15/24 05/25/24 02/24/24 History nitroglycerin 0.4 mg sublingual 0.4 mg sublingual DIRECTED PRN 01/15/24 05/25/24 Unknown History tablet Angina acetaminophen 325 mg tablet 650 mg PO Q4H PRN mild pain 03/11/24 05/25/24 Unknown History oxycodone 5 mg tablet 5 mg PO Q8H PRN Pain 05/25/24 05/25/24 Unknown History Physical Exam 2 Vital Signs: Vital Signs: Last Vital Signs Temp 98.5 F 05/27/24 19:44 Pulse 90 05/27/24 19:44 Resp 16 05/27/24 19:44 BP 150/80 H 05/27/24 19:44 Pulse Ox 93 05/27/24 19:44 O2 Del Method Room Air 05/27/24 19:44 O2 Flow Rate 2 05/27/24 10:57 BMI result Body Mass Index 26.2 Const: General: cooperative HEENT: Head: Yes normal to inspection Face and sinus: Yes normal facial exam Mouth: Normal oral and palatal mucosa present Teeth and gingiva: d entition normal Eyes: Other: eyes cloudy Pupils: Equal, round and reactive pupils present Resp: Effort & Inspection: normal respiratory effort Cardio: Rate: regular rate Rhythm: regular rhythm GI: Palpation (GI): Soft to palpation and nontender : General: Yes no CVA tenderness Back/Spine/Pelvis: Back: no CVA tenderness Skin: General skin exam: no rashes or lesions noted Neuro: General: moves all extremities Cranial nerves: Yes Equal, round and reactive pupils present Extrem: Other: multiple abrasions feet,mild chronic appearing changes and some cellulitis General: Yes normal to inspection Psych: Appearance: grossly normal Results Labs 05/27/24 12:57 05/27/24 12:57 Labs: Short CBC 05/27/24 Range/Units 12:57 WBC 4.8 (4.8-10.8) X10*3/uL Hgb 10.2 L (12.0-16.0) g/dl Hct 31.2 L (37.0-47.0) % Plt Count 67 L (160-400) X10*3/uL BMP 05/27/24 12:57 Sodium 132 L Potassium 3.6 D Chloride 94 L Carbon Dioxide 24 BUN 73 H Creatinine 8.46 H* Calcium 8.0 L Liver Function 05/27/24 Range/Units 12:57 Total Bilirubin 0.8 (0.0-1.0) mg/dL AST 41 H (5-31) U/L ALT < 6 (0-31) U/L Alkaline Phosphatase 161 H (39-117) U/L Albumin 3.3 L (3.5-5.0) g/dL Microbiology Microbiology Results: Microbiology 05/25/24 14:24 Blood - Venous Blood Culture - Final Strep agalactiae (Grp B) 05/25/24 14:07 Blood - Venous Blood Culture - Final Strep agalactiae (Grp B) Assessment and Plan (1) Bacteremia: Status: Acute (2) Fever: Status: Acute Plan six weeks IV Ceftriaxone 2g post HD. Change line if able.
[2024-05-28] VITALS: BP 178/94; PULSE 84; RESP 18; TEMP 36.1; O2SAT 98
[2024-05-28] MEDS: HYDROmorphone HCl 1 MG/ML SYRINGE IVPUSH ×5 (02:04→22:13)
[2024-05-28] MEDS: diphenhydrAMINE HCL 50 MG/ML VIAL 25 MG IVPUSH ×3 (02:05→20:43)
[2024-05-28 03:39] VITALS: BP 136/67; PULSE 82; RESP 16; TEMP 36.5; O2SAT 96
[2024-05-28 06:56] VITALS: BP 156/80; PULSE 80; RESP 17; TEMP 36.2; O2SAT 98
[2024-05-28 07:07] LABS: Glucose, Whole Blood 78 mg/dL (60-115)
[2024-05-28] MEDS: ondansetron HCL 4 MG/2 ML VIAL IVPUSH ×2 (09:28→20:43)
[2024-05-28] MEDS: 0.9 % Sodium Chloride Flush 3 ML SYRINGE IVFLUSH ×3 (09:33→23:43)
[2024-05-28] MEDS: cefEPime HCl 0.5 GM in 0.9 % Sodium Chloride 50 ML IV (09:45)
[2024-05-28 11:06] VITALS: BP 154/84; PULSE 78; RESP 17; TEMP 36.2; O2SAT 96
[2024-05-28 11:15] LABS: Glucose, Whole Blood 97 mg/dL (60-115)
[2024-05-28] MEDS: Prochlorperazine Edisylate 10 MG/2 ML VIAL 5 MG IVPUSH (12:29)
--- NOTE | 2024-05-28 15:03 | MHC.CM.PN ---
Per rounds, pt. is not ready to DC, she is being treated with IV ABX. CM to follow for DC needs.
[2024-05-28 15:08] VITALS: BP 156/81; PULSE 78; RESP 19; TEMP 36.1; O2SAT 94
[2024-05-28] MEDS: SODIUM CHLORIDE 0.9% IV (16:24)
[2024-05-28] MEDS: DAPTOMYCIN IV (16:24)
--- NOTE | 2024-05-28 16:27 | HO.PM.IMPN ---
Subjective Subjective Date of Service: 05/28/24 Interval History: Being followed for Gram-positive bacteremia Feeling better, nausea is improved no fevers no chills no vomiting, no diarrhea. Review of Systems All other system reviewed and are negative. Physical Exam Vital Signs: Vital Signs: Last Vital Signs Temp 97.0 F 05/28/24 15:08 Pulse 78 05/28/24 15:08 Resp 19 05/28/24 15:08 BP 156/81 H 05/28/24 15:08 Pulse Ox 94 05/28/24 15:08 O2 Del Method Room Air 05/28/24 15:08 O2 Flow Rate 2 05/27/24 10:57 BMI result Body Mass Index 26.2 Const: Other: Gen: in no acute distress HEENT: sclera anicteric, moist mucus membranes, blind Neck: supple, left subclavian hemodialysis catheter without any tenderness or purulence Lungs: clear to auscultation bilaterally Heart: regular rate and rhythm, no murmurs Abd: soft, non tender, non-distended Ext: no edema, s/p bilateral TMAs Skin: warm/well-perfused, multiple dry ulcers in various stages of healing on TMAs Neuro: alert and oriented x3, no focal weakness Psych: appropriate affect Objective Data Active Medications Acetaminophen (Acetaminophen 325 Mg Tablet) 650 mg PO Q6H PRN PRN Reason: Pain, Mild 1-3,fever,headache Albuterol Sulfate (Albuterol Sulfate 90 Mcg 8 Gm Inhaler) 2 puff INHALE RQ4H PRN PRN Reason: shortness of breath/wheezing Calcium Carbonate (Calcium Carbonate 750 Mg Tab.Chew) 750 mg PO Q4H PRN PRN Reason: Heartburn Carvedilol (Carvedilol 12.5 Mg Tablet) 12.5 mg PO BID [facility]; Protocol Dextrose (Dextrose 50 % 25 Gm/50 Ml Syringe) 25 gm IVPUSH Q15M PRN; Protocol PRN Reason: per Hypoglycemia Standing Ord. Diphenhydramine HCl (Diphenhydramine Hcl 50 Mg/Ml Vial) 25 mg IVPUSH Q6H PRN PRN Reason: Itching Last Admin: 05/28/24 09:28 Dose: 25 mg Documented By: NETO Glucose (Glucose Gel 15 Gm Gel..Gram.) 15 gm PO Q15M PRN; Protocol PRN Reason: per Hypoglycemia Standing Ord. Heparin Sodium (Porcine) (Heparin Sodium,Porcine 5,000 Unit/Ml Vial) 5,000 unit SUBCUT Q12H [facility] Last Admin: 05/28/24 03:30 Dose: Not Given Documented By: MARIE Non-Admin Reason: Patient Refused Hydralazine HCl (Hydralazine Hcl 50 Mg Tablet) 50 mg PO TID [facility]; Protocol Hydromorphone HCl (Hydromorphone Hcl 1 Mg/Ml Syringe) 1 mg IVPUSH Q4H PRN; Protocol PRN Reason: Pain, Severe (Pain Scale 7-10) Last Admin: 05/28/24 13:39 Dose: 1 mg Documented By: NETO Daptomycin 580 mg/ Sodium (Chloride) 61.6 mls @ 99.982 mls/hr IV Q24H [facility] Last Infusion: 05/27/24 18:36 Dose: Infused Documented By: BROJenifer Cefepime HCl 0.5 gm/ Sodium (Chloride) 50 mls @ 100 mls/hr IV Q24H [facility] Last Infusion: 05/28/24 10:18 Dose: Infused Documented By: NETO Insulin Human Lispro (Insulin Lispro 100 Unit/Ml 3 Ml Vial) 0 unit SUBCUT QIDACHS [facility]; Protocol Last Admin: 05/28/24 16:15 Dose: Not Given Documented By: MIKE Non-Admin Reason: No Insulin Coverage Lidocaine (Lidocaine 4 % Patch Adh..Patch) 1 patch TRANSDERMA DAILY PRN PRN Reason: Pain Magnesium Hydroxide (Milk Of Magnesia 30 Ml Oral.Susp) 30 ml PO DAILY PRN PRN Reason: Constipation Melatonin (Melatonin 3 Mg Tablet) 6 mg PO BEDTIME PRN PRN Reason: Insomnia Ondansetron HCl (Ondansetron Hcl 4 Mg/2 Ml Vial) 4 mg IVPUSH Q8H PRN PRN Reason: Nausea and Vomiting Last Admin: 05/28/24 09:28 Dose: 4 mg Documented By: NETO Oxycodone HCl (Oxycodone Hcl Immed Release 5 Mg Tablet) 5 mg PO Q8H PRN PRN Reason: pain, moderate Last Admin: 05/25/24 17:38 Dose: 5 mg Documented By: ALICE Prochlorperazine Edisylate (Prochlorperazine Edisylate 10 Mg/2 Ml Vial) 5 mg IVPUSH Q6H PRN PRN Reason: Nausea and Vomiting Last Admin: 05/28/24 12:29 Dose: 5 mg Documented By: NETO Sodium Chloride (0.9 % Sodium Chloride Flush 3 Ml Syringe) 3 ml IVFLUSH QSHIFT [facility] Last Admin: 05/28/24 09:33 Dose: 3 ml Documented By: NETO Labs 05/27/24 12:57 05/27/24 12:57 Labs: Laboratory Results - last 24 hr 05/27/24 05/28/24 05/28/24 19:59 06:58 11:08 POC Glucose 133 H 78 97 Microbiology Microbiology Results: Microbiology 05/27/24 12:57 Blood Culture - Preliminary Blood - Central Line No growth after 24 hours. Assessment and Plan (1) Bacteremia: Status: Acute Plan 33yo F with ESRD on HD TuThSa, DM2 with polyneuropathy/retinopathy with blindness, PAD s/p bilateral TMA, HTN, chronic hypoxic respiratory failure on 3-4L O2, HFrEF, mood disorder, chronic pain with opioid-seeking behavior, and history multiple line infections with bacteremia with MSSA, Stenotrophomonas, and Pseudomonas. Presenting with acute nausea, vomiting, abdominal pain, and diarrhea and found to be septic. sepsis - sepsis resolved, WBC normalized - blood cultures 2/2 grew strep agalactiae group B likely sources line infection vs. wound infection, CT abdomen and pelvis unremarkable, chest x-ray showed no abnormality - stool for C difficile PCR + GI panel un collected, no further diarrhea - on iv daptomycin and cefepime, renally dosed - seen by ID she recommend 2 g of ceftriaxone post hemodialysis and change line if able Case discussed with Dr. Siddiqi will pull hemodialysis catheter after hemodialysis on Sunday and repeat blood cultures if negative will place temporary line on Sunday Will change antibiotic to 2 g ceftriaxone. hyperK/ ESRD , hyperkalemia resolved, continue hemodialysis Sunday, and Saturdays. HTN continue carvedilol + hydralazine , few high blood pressure readings, follow bp. chronic hypoxic resp failure -stable, on 3L O2 at baseline Bilateral TMA seen by wound nurse Left Plantar Diabetic Wound? - dry callused resurfaced - central open area with creamy yellow drainage - seropurulent drainage - odor noted - consider surgical debridement of callus. periwound is noted for dark,non blanchable purple lifted pockets noted. recommend durafiber AG Bilateral Heels - Off load pressure with pillows. Left Plantar and Right Plantar - Cleanse with NS, pat dry. Apply skin prep allow to dry. Cover wound bed with Durafiber AG, cover with dry gauze, ABD pad and wrap. Change every other day. Right Dorsal - Cleanse with NS apply xeroform to wound bed cover with ABD pad and wrap. Change every other day. DM2 - continue correction-dose lispro VTE prophylaxis heparin code status - full code requiring continued inpatient hospitalization for IV antibiotics and expert consultation Quality Stroke Does the patient have a stroke diagnosis?: No VTE Prior VTE?: No VTE Risk Level:: Medical - moderate - high VTE Device Contraindication: N/A - Device Ordered VTE Drug Contraindication: N/A - Med Ordered
[2024-05-28] MEDS: cefTRIAXone sodium 2 GM VIAL IVPUSH (17:36)
--- NOTE | 2024-05-28 17:50 | P.PNNP_ITS ---
Subjective Subjective Date of Service: 05/28/24 Interval history: Seen and examined,e vents noted Physical Exam 2 Vital Signs: Vital Signs: Last Vital Signs Temp 97.0 F 05/28/24 15:08 Pulse 78 05/28/24 15:08 Resp 19 05/28/24 15:08 BP 156/81 H 05/28/24 15:08 Pulse Ox 94 05/28/24 15:08 O2 Del Method Room Air 05/28/24 15:08 O2 Flow Rate 2 05/27/24 10:57 BMI result Body Mass Index 26.2 Const: Other: Awake alert uncomfortable secondary to vomiting Resp: Other: Clear to auscultation bilaterally no rales rhonchi or wheezes Cardio: Other: No S4; positive S1-S2 3 murmurs rubs or gallops GI: Other: Soft nontender nondistended normoactive bowel sounds Extrem: Other: No edema bilaterally Objective Data Labs 05/27/24 12:57 05/27/24 12:57 Labs: Laboratory Results - last 24 hr 05/27/24 05/28/24 05/28/24 19:59 06:58 11:08 POC Glucose 133 H 78 97 Microbiology Microbiology Results: Microbiology 05/27/24 12:57 Blood - Central Line Blood Culture - Preliminary No growth after 24 hours. 05/25/24 14:24 Blood - Venous Blood Culture - Final Strep agalactiae (Grp B) 05/25/24 14:07 Blood - Venous Blood Culture - Final Strep agalactiae (Grp B) Procedures Date of Service Date of Service: 05/28/24 Assessment & Plan Assessment and plan (1) Bacteremia: Status: Acute (2) End stage renal disease on dialysis: Status: Acute Plan 1. ESRD: TTS 2. Bacteremia with GPC ( Strep) : will need Pcath removed and card echo and ID conusltation; ABx as perID ( uncler if we can get ceftriaxone in outpt HDU) 3. HyperK: controlled w HD 4. TITO of CKD REC: usu HD TTS lora will plan HD Fri am instrad of and then pull Pcathh and hope to replace new Pcath on ; ABX as per ID ( uncler if we can get ceftriaxone in outpt HDU) Will follow w team Time Spent With Patient Time: Total time managing care of this patient today ____ minutes. Progress Note: Quality Stroke Does the patient have a stroke diagnosis?: No
[2024-05-28 19:55] VITALS: BP 169/73; PULSE 84; RESP 16; TEMP 36.4; O2SAT 96
[2024-05-28 20:52] LABS: Glucose, Whole Blood 121 mg/dL (60-115)
[2024-05-29] VITALS (7 sets, daily range): BP systolic 152–186; BP diastolic 72–93; PULSE 76–82; RESP 14–18; TEMP 36.1–36.6; O2SAT 93–98; BMI 26.0
[2024-05-29] MEDS: HYDROmorphone HCl 1 MG/ML SYRINGE IVPUSH ×5 (03:23→21:35)
[2024-05-29] MEDS: ondansetron HCL 4 MG/2 ML VIAL IVPUSH ×2 (07:38→21:35)
[2024-05-29] MEDS: diphenhydrAMINE HCL 50 MG/ML VIAL 25 MG IVPUSH ×3 (07:39→22:47)
[2024-05-29 07:49] LABS: Glucose, Whole Blood 73 mg/dL (60-115)
[2024-05-29] MEDS: 0.9 % Sodium Chloride Flush 3 ML SYRINGE IVFLUSH ×3 (11:10→21:35)
--- NOTE | 2024-05-29 11:11 | P.PNIM_ITS ---
Subjective Subjective Date of Service: 05/29/24 Interval History: Being followed for Gram-positive bacteremia Denies fever, no chills, no abdominal pain no vomiting, or diarrhea complaining of persistent chronic nausea. Review of Systems All other system reviewed and are negative. Physical Exam 2 Vital Signs: Vital Signs: Last Vital Signs Temp 97.4 F 05/29/24 07:26 Pulse 82 05/29/24 07:26 Resp 18 05/29/24 07:26 BP 169/89 H 05/29/24 03:26 Pulse Ox 96 05/29/24 07:26 O2 Del Method Room Air 05/29/24 07:26 O2 Flow Rate 2 05/27/24 10:57 BMI result Body Mass Index 26.0 Const: Other: Gen: in no acute distress HEENT: sclera anicteric, moist mucus membranes, blind Neck: supple, left subclavian hemodialysis catheter without surrounding redness, or warmth Lungs: clear to auscultation bilaterally Heart: regular rate and rhythm, no murmurs Abd: soft, non tender, non-distended Ext: no edema, s/p bilateral TMAs Skin: warm/well-perfused, multiple dry ulcers in various stages of healing on TMAs Neuro: alert and oriented x3, no focal weakness Psych: appropriate affect Objective Data Active Medications Acetaminophen (Acetaminophen 325 Mg Tablet) 650 mg PO Q6H PRN PRN Reason: Pain, Mild 1-3,fever,headache Albuterol Sulfate (Albuterol Sulfate 90 Mcg 8 Gm Inhaler) 2 puff INHALE RQ4H PRN PRN Reason: shortness of breath/wheezing Calcium Carbonate (Calcium Carbonate 750 Mg Tab.Chew) 750 mg PO Q4H PRN PRN Reason: Heartburn Carvedilol (Carvedilol 12.5 Mg Tablet) 12.5 mg PO BID [facility]; Protocol Ceftriaxone Sodium (Ceftriaxone Sodium 2 Gm Vial) 2 gm IVPUSH Q24H [facility] Last Admin: 05/28/24 17:36 Dose: 2 gm Documented By: MIKE Dextrose (Dextrose 50 % 25 Gm/50 Ml Syringe) 25 gm IVPUSH Q15M PRN; Protocol PRN Reason: per Hypoglycemia Standing Ord. Diphenhydramine HCl (Diphenhydramine Hcl 50 Mg/Ml Vial) 25 mg IVPUSH Q6H PRN PRN Reason: Itching Last Admin: 05/29/24 07:39 Dose: 25 mg Documented By: SHAHLA Glucose (Glucose Gel 15 Gm Gel..Gram.) 15 gm PO Q15M PRN; Protocol PRN Reason: per Hypoglycemia Standing Ord. Heparin Sodium (Porcine) (Heparin Sodium,Porcine 5,000 Unit/Ml Vial) 5,000 unit SUBCUT Q12H [facility] Last Admin: 05/29/24 03:32 Dose: Not Given Documented By: GONZALO Non-Admin Reason: Patient Refused Hydralazine HCl (Hydralazine Hcl 50 Mg Tablet) 50 mg PO TID [facility]; Protocol Hydromorphone HCl (Hydromorphone Hcl 1 Mg/Ml Syringe) 1 mg IVPUSH Q4H PRN; Protocol PRN Reason: Pain, Severe (Pain Scale 7-10) Last Admin: 05/29/24 07:37 Dose: 1 mg Documented By: SHAHLA Insulin Human Lispro (Insulin Lispro 100 Unit/Ml 3 Ml Vial) 0 unit SUBCUT QIDACHS [facility]; Protocol Last Admin: 05/29/24 07:37 Dose: Not Given Documented By: SHAHLA Non-Admin Reason: No Insulin Coverage Lidocaine (Lidocaine 4 % Patch Adh..Patch) 1 patch TRANSDERMA DAILY PRN PRN Reason: Pain Magnesium Hydroxide (Milk Of Magnesia 30 Ml Oral.Susp) 30 ml PO DAILY PRN PRN Reason: Constipation Melatonin (Melatonin 3 Mg Tablet) 6 mg PO BEDTIME PRN PRN Reason: Insomnia Ondansetron HCl (Ondansetron Hcl 4 Mg/2 Ml Vial) 4 mg IVPUSH Q8H PRN PRN Reason: Nausea and Vomiting Last Admin: 05/29/24 07:38 Dose: 4 mg Documented By: SHAHLA Oxycodone HCl (Oxycodone Hcl Immed Release 5 Mg Tablet) 5 mg PO Q8H PRN PRN Reason: pain, moderate Last Admin: 05/25/24 17:38 Dose: 5 mg Documented By: ALICE Prochlorperazine Edisylate (Prochlorperazine Edisylate 10 Mg/2 Ml Vial) 5 mg IVPUSH Q6H PRN PRN Reason: Nausea and Vomiting Last Admin: 05/28/24 12:29 Dose: 5 mg Documented By: NETO Sodium Chloride (0.9 % Sodium Chloride Flush 3 Ml Syringe) 3 ml IVFLUSH QSHIFT [facility] Last Admin: 05/28/24 23:43 Dose: 3 ml Documented By: GONZALO Labs 05/27/24 12:57 05/27/24 12:57 Labs: Laboratory Results - last 24 hr 05/28/24 05/28/24 05/29/24 11:08 20:44 07:25 POC Glucose 97 121 H 73 Microbiology Microbiology Results: Microbiology 05/27/24 12:57 Blood Culture - Preliminary Blood - Central Line No growth after 24 hours. Assessment and Plan (1) Bacteremia: Status: Acute (2) Fever: Status: Acute (3) Sepsis: Status: Acute Plan 33yo F with ESRD on HD TuThSa, DM2 with polyneuropathy/retinopathy with blindness, PAD s/p bilateral TMA, HTN, chronic hypoxic respiratory failure on 3- 4L O2, HFrEF, mood disorder, chronic pain with opioid-seeking behavior, and history multiple line infections with bacteremia with MSSA, Stenotrophomonas, and Pseudomonas. Presenting with acute nausea, vomiting, abdominal pain, and diarrhea and found to be septic. sepsis - sepsis resolved, WBC normalized - blood cultures 2/2 grew strep agalactiae group B likely sources line infection vs. wound infection, CT abdomen and pelvis unremarkable, chest x-ray showed no abnormality - stool for C difficile PCR + GI panel un collected,due to no further diarrhea - s/p iv daptomycin and cefepime, transitioned to 2 g of ceftriaxone on 05/28 as per ID Case discussed with Dr. Siddiqi will pull hemodialysis catheter after hemodialysis on Sunday and repeat blood cultures, line cultures, if negative place temporary line on Sunday hyperK/ ESRD , hyperkalemia resolved, continue hemodialysis Sunday, and Saturdays. HTN continue carvedilol + hydralazine , few high blood pressure readings, follow bp. chronic hypoxic resp failure -stable, on 3L O2 at baseline Bilateral TMA seen by wound nurse Left Plantar Diabetic Wound? - dry callused resurfaced - central open area with creamy yellow drainage - seropurulent drainage - odor noted - consider surgical debridement of callus. adonay wound is noted for dark,non blanchable purple lifted pockets noted. recommend durafiber AG Bilateral Heels - Off load pressure with pillows. Left Plantar and Right Plantar - Cleanse with NS, pat dry. Apply skin prep allow to dry. Cover wound bed with Durafiber AG, cover with dry gauze, ABD pad and wrap. Change every other day. Right Dorsal - Cleanse with NS apply xeroform to wound bed cover with ABD pad and wrap. Change every other day. Surgical consult pending DM2 - stable blood sugars 73, dc correction-dose lispro,hbaic 5.7 in 03/22 , not on home insulin or oral hypoglycemics VTE prophylaxis heparin code status - full code requiring continued inpatient hospitalization for IV antibiotics and expert consultation Quality Stroke Does the patient have a stroke diagnosis?: No VTE Prior VTE?: No VTE Risk Level:: Medical - moderate - high VTE Device Contraindication: N/A - Device Ordered VTE Drug Contraindication: N/A - Med Ordered
[2024-05-29 11:34] LABS: Glucose, Whole Blood 109 mg/dL (60-115)
--- NOTE | 2024-05-29 13:59 | P.PNNP_ITS ---
Subjective Subjective Date of Service: 05/29/24 Interval history: seen and examined denies fever, chills, abdominal pain, vomiting, or diarrhea Physical Exam 2 Vital Signs: Vital Signs: Last Vital Signs Temp 97.2 F 05/29/24 11:41 Pulse 80 05/29/24 11:41 Resp 18 05/29/24 11:41 BP 167/87 H 05/29/24 11:41 Pulse Ox 98 05/29/24 11:41 O2 Del Method Room Air 05/29/24 11:41 O2 Flow Rate 2 05/27/24 10:57 BMI result Body Mass Index 26.0 Const: General: no acute distress Neck: Neck: Yes supple Resp: Auscultation: diminished lung sounds Cardio: Heart sounds: S1 normal heart sound present and S2 normal heart sound present GI: Palpation (GI): Soft to palpation and nontender Extrem: Left upper extremity: edema Objective Data Labs 05/27/24 12:57 05/27/24 12:57 Labs: Laboratory Results - last 24 hr 05/28/24 05/29/24 05/29/24 20:44 07:25 11:28 POC Glucose 121 H 73 109 Microbiology Microbiology Results: Microbiology 05/27/24 12:57 Blood - Central Line Blood Culture - Preliminary No growth after 24 hours. 05/25/24 14:24 Blood - Venous Blood Culture - Final Strep agalactiae (Grp B) 05/25/24 14:07 Blood - Venous Blood Culture - Final Strep agalactiae (Grp B) Procedures Date of Service Date of Service: 05/29/24 Assessment & Plan Assessment and plan (1) ESRD (end stage renal disease): Status: Acute (2) Bacteremia: Status: Acute (3) Anemia: Status: Acute Plan ESRD on HD t-t-s at [facility] via PC admitted with line infection nephrogenic anemia REC HD in am DC line after HD tomorrow line holiday repeat blood culture follow blood culture new Permacath if blood culture negative for 48 hours ABx x 6 weeks echocardiogram VIPUL P binder renal diet Time Spent With Patient Time: Total time managing care of this patient today ____ minutes. Progress Note: Quality Stroke Does the patient have a stroke diagnosis?: No
[2024-05-29 14:58] LABS: Glucose, Whole Blood 126 mg/dL (60-115)
[2024-05-29] MEDS: Prochlorperazine Edisylate 10 MG/2 ML VIAL 5 MG IVPUSH (16:12)
[2024-05-29] MEDS: cefTRIAXone sodium 2 GM VIAL IVPUSH (16:12)
[2024-05-29 16:19] LABS: Glucose, Whole Blood 114 mg/dL (60-115)
[2024-05-30] VITALS (9 sets, daily range): BP systolic 120–190; BP diastolic 61–94; PULSE 82–87; RESP 14–18; TEMP 36.2–36.9; O2SAT 94–100
[2024-05-30] MEDS: HYDROmorphone HCl 1 MG/ML SYRINGE IVPUSH ×3 (01:40→09:52)
--- NOTE | 2024-05-30 05:21 | PC.NURSE ---
Addendum entered by Mona Yoo RN 05/30/24 05:22: Pt transported to Dialysis at 5am, Pt was requesting for pain med prior to transport, pt reminded as not due for Dilaudid yet, pt complied. Original Note: Pt seen on bed alert and oriented, still with on and off generalized pain, prn Dilaudid given with good effect, slept at intervals, nauseous at times, prn Zofran given with good ffect, pt refused bed alarm, transfer self to bedside commode, reeducated on safety measures.
[2024-05-30] MEDS: ondansetron HCL 4 MG/2 ML VIAL IVPUSH (05:50)
--- NOTE | 2024-05-30 07:00 | CA_ITS ---
Transthoracic Echocardiogram Patient (Last, First, Middle): Shereen Taylor, Gender: Female Date of : 1990 Age: 33 Procedure Date: 05/30/2024 Procedure Type: Transthoracic Echocardiogram Location: S3E Height: 165.1 cm Weight: 70.76 kg BSA: 1.78 m2 Heart Rate: bpm BP: 157 / 85 mmHg Cotton Cleaner: Referring MD: Scarlet Arora MD Symptoms: bacteremia/r/o vegetations Study Quality: Fair ECG Rhythm: Sinus Conclusions: - The left ventricular systolic function is moderately decreased. The calculated ejection fraction is 41% by biplane method. - There is severely increased left ventricular wall thickness. - There is mild to moderate tricuspid valve regurgitation. - No obvious valvular vegetations. - Mild pulmonary hypertension is present. - There is a small loculated pericardial effusion overlying the left ventricle and right atrium. Findings Left Ventricle Normal left ventricular cavity size. There is severely increased left ventricular wall thickness. The left ventricular systolic function is moderately decreased. The calculated ejection fraction is 41% by biplane method. There is moderate global hypokinesis. Wall Motion Rest Echo Findings The basal inferior segment is akinetic. Right Ventricle Moderately increased right ventricular cavity size. There is mildly decreased right ventricular systolic function. Atria The left atrium is severely dilated. The right atrium is moderately dilated. Aortic Valve The aortic valve was not well visualized. There is no aortic valve stenosis. There is trace (trivial) aortic valve regurgitation. Mitral Valve The mitral valve appears normal. There is trace mitral valve regurgitation. There is no mitral valve stenosis. Pulmonic Valve There is trace pulmonic valve regurgitation. Tricuspid Valve Normal tricuspid valve structure. There is mild to moderate tricuspid valve regurgitation. Mild pulmonary hypertension is present. Great Vessels The asc aorta is normal in size. Venous The inferior vena cava is normal in size and collapses greater than 50% with inspiration. There is evidence of a dilated coronary sinus. Pericardium/Pleural There is a small loculated pericardial effusion overlying the left ventricle and right atrium. There are no definitive echocardiographic findings of tamponade physiology. Prior Study Comparison Changes noted compared to prior study dated: 02/29/2024. Pericardial effusion appears smaller. Measurements 2D Linear Measurements IVSd: 1.56 0.6-0.9/0.6-1.0 cm LVIDd: 4.88 3.9-5.3/4.2-5.9 cm LVIDd Index: 2.74 2.4-3.2/2.2-3.1 cm/m2 LVIDs: 3.75 2.0-3.6 cm LVPWd: 1.42 0.7-1.1 cm Ao Root: 2.80 2.1-3.5 cm LA Diam: 4.70 2.7-3.8/3.0-4.0 cm LAIDs Index: 2.64 1.5-2.3 cm/m2 LV Mass: 384.15 67-162/88-224 g LV Mass Index: 215.81 43-95/49-115 g/m2 LVOT Diam: 2.10 3.0+(-)1.3 cm 2D Systolic Function EF 4C: 46.90 >55% EF 2C: 40.30 >55% EF BiP: 40.90 >55% Mitral Valve MV Pk E: 0.50 MV PK A: 0.92 MV Decel Time: 77.00 E/A: 0.50 E'Lateral: 8.16 E'Medial: 9.68 E/E' Med: 5.10 E/E' Lat: 6.10 PHT: 23.00 MVA PHT: 9.57 Decel [place]: 6.43 Aortic Valve AoV Pk Pietro: 1.48 AoV Mn Pietro: 0.93 AoV VTI: 0.24 AoV Pk Grad: 9.00 Aov Mn Grad: 4.00 ANDREA Cont.VTI: 2.01 LVOT LVOT Pk Pietro: 0.65 LVOT Mn Pietro: 0.42 LVOT VTI: 0.14 LVOT Pk Grad: 2.00 LVOT Mn Grad: 1.00 LVOT Diam: 2.10 LVOT Area: 3.46 Diastolic Function MV Pk E: 0.50 MV Pk A: 0.92 E/A: 0.50 E'Medial: 9.68 E/E' Med: 5.10 E' Laterial: 8.16 E/E' Lat: 6.10 Right Ventricle TAPSE (mm): 23.00 TVS' Pietro: 9.00 Tricuspid Valve TR Pk Pietro: 3.39 TR Pk Grad: 46.00 RA Press: 3.00 RVSP: 49.00 Great Vessels Aorta Ao Root-2D: 2.80 2.0-3.7 cm Ao Asc: 3.20 2.1-3.4 cm Pulmonary Valve PV Pk Pietro: 0.94 Peak PV Grad: 4.00 Updated in Other Vendor System with Status of Final Brandyn Bhardwaj MD electronically signed on 05/30/2024 4:40:31 PM with status of Final
[2024-05-30 07:58] LABS: Glucose, Whole Blood 98 mg/dL (60-115)
[2024-05-30] MEDS: Acetaminophen 325 MG TABLET 650 MG PO (09:04)
[2024-05-30] MEDS: diphenhydrAMINE HCL 50 MG/ML VIAL 25 MG IVPUSH ×2 (09:07→17:15)
--- NOTE | 2024-05-30 09:49 | HO.PM.IMPN ---
Subjective Subjective Date of Service: 05/30/24 Interval History: Being followed for group B strep agalactiae bacteremia Complaining of headache, no lightheadedness, no dizziness noted to have elevated blood pressures, has not eaten breakfast. Just returned from hemodialysis. Review of Systems All other system reviewed and are negative. Physical Exam Vital Signs: Vital Signs: Last Vital Signs Temp 97.7 F 05/30/24 08:54 Pulse 86 05/30/24 08:54 Resp 14 05/30/24 08:54 BP 190/94 H 05/30/24 08:54 Pulse Ox 97 05/30/24 08:54 O2 Del Method Room Air 05/30/24 08:54 O2 Flow Rate 3 05/30/24 03:53 BMI result Body Mass Index 26.0 Const: Other: Gen: in no acute distress HEENT: sclera anicteric, moist mucus membranes, blind Neck: supple, left subclavian hemodialysis catheter without surrounding redness, or warmth Lungs: clear to auscultation bilaterally Heart: regular rate and rhythm, no murmurs Abd: soft, non tender, non-distended Ext: no edema, s/p bilateral TMAs Skin: warm/well-perfused, multiple dry ulcers in various stages of healing on TMAs Neuro: alert and oriented x3, no focal weakness Psych: appropriate affect Objective Data Active Medications Acetaminophen (Acetaminophen 325 Mg Tablet) 650 mg PO Q6H PRN PRN Reason: Pain, Mild 1-3,fever,headache Last Admin: 05/30/24 09:04 Dose: 650 mg Documented By: BELINDA Albuterol Sulfate (Albuterol Sulfate 90 Mcg 8 Gm Inhaler) 2 puff INHALE RQ4H PRN PRN Reason: shortness of breath/wheezing Calcium Carbonate (Calcium Carbonate 750 Mg Tab.Chew) 750 mg PO Q4H PRN PRN Reason: Heartburn Carvedilol (Carvedilol 12.5 Mg Tablet) 12.5 mg PO BID [facility]; Protocol Ceftriaxone Sodium (Ceftriaxone Sodium 2 Gm Vial) 2 gm IVPUSH Q24H [facility] Last Admin: 05/29/24 16:12 Dose: 2 gm Documented By: BELINDA Diphenhydramine HCl (Diphenhydramine Hcl 50 Mg/Ml Vial) 25 mg IVPUSH Q6H PRN PRN Reason: Itching Last Admin: 05/30/24 09:07 Dose: 25 mg Documented By: BELINDA Heparin Sodium (Porcine) (Heparin Sodium,Porcine 5,000 Unit/Ml Vial) 5,000 unit SUBCUT Q12H [facility] Last Admin: 05/30/24 04:01 Dose: Not Given Documented By: OLGA Non-Admin Reason: Patient Refused Hydralazine HCl (Hydralazine Hcl 50 Mg Tablet) 50 mg PO TID [facility]; Protocol Hydromorphone HCl (Hydromorphone Hcl 1 Mg/Ml Syringe) 1 mg IVPUSH Q4H PRN; Protocol PRN Reason: Pain, Severe (Pain Scale 7-10) Last Admin: 05/30/24 05:50 Dose: 1 mg Documented By: OLGA Lidocaine (Lidocaine 4 % Patch Adh..Patch) 1 patch TRANSDERMA DAILY PRN PRN Reason: Pain Magnesium Hydroxide (Milk Of Magnesia 30 Ml Oral.Susp) 30 ml PO DAILY PRN PRN Reason: Constipation Melatonin (Melatonin 3 Mg Tablet) 6 mg PO BEDTIME PRN PRN Reason: Insomnia Ondansetron HCl (Ondansetron Hcl 4 Mg/2 Ml Vial) 4 mg IVPUSH Q8H PRN PRN Reason: Nausea and Vomiting Last Admin: 05/30/24 05:50 Dose: 4 mg Documented By: OLGA Oxycodone HCl (Oxycodone Hcl Immed Release 5 Mg Tablet) 5 mg PO Q8H PRN PRN Reason: pain, moderate Last Admin: 05/25/24 17:38 Dose: 5 mg Documented By: ALICE Prochlorperazine Edisylate (Prochlorperazine Edisylate 10 Mg/2 Ml Vial) 5 mg IVPUSH Q6H PRN PRN Reason: Nausea and Vomiting Last Admin: 05/29/24 16:12 Dose: 5 mg Documented By: BELINDA Sodium Chloride (0.9 % Sodium Chloride Flush 3 Ml Syringe) 3 ml IVFLUSH QSHIFT [facility] Last Admin: 05/30/24 08:06 Dose: Not Given Documented By: BELINDA Non-Admin Reason: Off unit: Dialysis Labs 05/27/24 12:57 05/27/24 12:57 Labs: Laboratory Results - last 24 hr 05/28/24 05/29/24 05/29/24 16:14 11:28 16:06 POC Glucose 126 H 109 114 05/30/24 07:53 POC Glucose 98 Microbiology Microbiology Results: Microbiology 05/27/24 12:57 Blood Culture - Preliminary Blood - Central Line No growth after 48 hours. Assessment and Plan (1) ESRD (end stage renal disease): Status: Acute (2) Bacteremia: Status: Acute Plan 33yo F with ESRD on HD TuThSa, DM2 with polyneuropathy/retinopathy with blindness, PAD s/p bilateral TMA, HTN, chronic hypoxic respiratory failure on 3-4L O2, HFrEF, mood disorder, chronic pain with opioid-seeking behavior, and history multiple line infections with bacteremia with MSSA, Stenotrophomonas, and Pseudomonas. Presenting with acute nausea, vomiting, abdominal pain, and diarrhea and found to be septic. sepsis - sepsis resolved, WBC normalized - blood cultures 2/2 grew strep agalactiae group B likely sources line infection vs. wound infection, CT abdomen and pelvis unremarkable, chest x-ray showed no abnormality - stool for C difficile PCR + GI panel un collected,due to no further diarrhea - s/p iv daptomycin and cefepime, transitioned to 2 g of ceftriaxone on 05/28 as per ID Case discussed with Dr. Siddiqi will pull hemodialysis catheter today after hemodialysis and repeat blood cultures, line cultures, if blood culture negative place temporary line on Sunday. Echo ordered hyperK/ ESRD , hyperkalemia resolved, continue hemodialysis Sunday, and Saturdays (receive hemodialysis on 05/30.) HTN continue carvedilol + hydralazine , few high blood pressure readings, follow bp. chronic hypoxic resp failure -stable, on 3L O2 at baseline Bilateral TMA seen by wound nurse Left Plantar Diabetic Wound? - dry callused resurfaced - central open area with creamy yellow drainage - seropurulent drainage - odor noted - consider surgical debridement of callus. adonay wound is noted for dark,non blanchable purple lifted pockets noted. recommend durafiber AG Bilateral Heels - Off load pressure with pillows. Left Plantar and Right Plantar - Cleanse with NS, pat dry. Apply skin prep allow to dry. Cover wound bed with Durafiber AG, cover with dry gauze, ABD pad and wrap. Change every other day. Right Dorsal - Cleanse with NS apply xeroform to wound bed cover with ABD pad and wrap. Change every other day. Surgical consult pending DM2 - stable blood sugars , dc correction-dose lispro,hbaic 5.7 in 03/22 , not on home insulin or oral hypoglycemics VTE prophylaxis heparin code status - full code requiring continued inpatient hospitalization for IV antibiotics and expert consultation Quality Stroke Does the patient have a stroke diagnosis?: No VTE Prior VTE?: No VTE Risk Level:: Medical - moderate - high VTE Device Contraindication: N/A - Device Ordered VTE Drug Contraindication: N/A - Med Ordered
--- NOTE | 2024-05-30 11:26 | PM.PROC ---
Brief Operative Note Date of procedure: 05/30/24 Pre-op diagnosis: Bacteremia Post-op diagnosis: same Procedure: Left IJ permacath removed with immediate complications. Tip sent for culture. Anesthesia: local
[2024-05-30] MEDS: hydrALAZINE HCl 50 MG TABLET PO ×2 (12:21→21:04)
[2024-05-30] MEDS: carvediloL 12.5 MG TABLET PO ×2 (12:21→21:04)
[2024-05-30] MEDS: HYDROmorphone HCl 1 MG/ML SYRINGE 0.5 MG IVPUSH ×3 (13:55→22:53)
[2024-05-30] MEDS: cefTRIAXone sodium 2 GM VIAL IVPUSH (17:15)
[2024-05-30] MEDS: Prochlorperazine Edisylate 10 MG/2 ML VIAL 5 MG IVPUSH (17:15)
[2024-05-30] MEDS: 0.9 % Sodium Chloride Flush 3 ML SYRINGE IVFLUSH ×2 (17:23→21:04)
--- NOTE | 2024-05-30 17:26 | P.PNNP_ITS ---
Subjective Subjective Date of Service: 05/30/24 Interval history: Seen and examied, events noted Physical Exam 2 Vital Signs: Vital Signs: Last Vital Signs Temp 98.5 F 05/30/24 15:44 Pulse 83 05/30/24 15:44 Resp 14 05/30/24 15:44 BP 190/90 H 05/30/24 15:44 Pulse Ox 95 05/30/24 15:44 O2 Del Method Room Air 05/30/24 15:44 O2 Flow Rate 3 05/30/24 03:53 BMI result Body Mass Index 26.0 Const: Other: Awake alert uncomfortable secondary to vomiting General: no acute distress Neck: Neck: Yes supple Resp: Other: Clear to auscultation bilaterally no rales rhonchi or wheezes Auscultation: diminished lung sounds Cardio: Other: No S4; positive S1-S2 3 murmurs rubs or gallops Heart sounds: S1 normal heart sound present and S2 normal heart sound present GI: Other: Soft nontender nondistended normoactive bowel sounds Palpation (GI): Soft to palpation and nontender Extrem: Other: No edema bilaterally Left upper extremity: edema Objective Data Labs 05/27/24 12:57 05/27/24 12:57 Labs: Laboratory Results - last 24 hr 05/30/24 07:53 POC Glucose 98 Microbiology Microbiology Results: Microbiology 05/27/24 12:57 Blood - Central Line Blood Culture - Preliminary No growth after 48 hours. 05/25/24 14:24 Blood - Venous Blood Culture - Final Strep agalactiae (Grp B) 05/25/24 14:07 Blood - Venous Blood Culture - Final Strep agalactiae (Grp B) Procedures Date of Service Date of Service: 05/30/24 Assessment & Plan Assessment and plan (1) ESRD (end stage renal disease): Status: Acute (2) Bacteremia: Status: Acute (3) Anemia: Status: Acute Plan ESRD on HD t-t-s at [facility] via PC admitted with line infection s/p HD today and Pcath removed nephrogenic anemia REC line holiday repeat blood culture follow blood culture new Permacath if blood culture negative for 48 hours ABx x 6 weeks per ID--? Abx thayt is avail at outpt HDU that is on formulary ( anceph, vanco, cefipine) echocardiogram VIPUL P binder renal diet Will follow w team Time Spent With Patient Time: Total time managing care of this patient today ____ minutes. Progress Note: Quality Stroke Does the patient have a stroke diagnosis?: No
[2024-05-31] VITALS (10 sets, daily range): BP systolic 142–190; BP diastolic 75–100; PULSE 75–84; RESP 12–18; TEMP 36.2–36.4; O2SAT 96–97
[2024-05-31] MEDS: HYDROmorphone HCl 1 MG/ML SYRINGE 0.5 MG IVPUSH ×4 (03:42→20:37)
[2024-05-31] MEDS: diphenhydrAMINE HCL 50 MG/ML VIAL 25 MG IVPUSH ×3 (03:47→20:37)
[2024-05-31 07:38] LABS: Glucose, Whole Blood 125 mg/dL (60-115)
[2024-05-31] MEDS: 0.9 % Sodium Chloride Flush 3 ML SYRINGE IVFLUSH ×3 (08:41→20:31)
[2024-05-31] MEDS: ondansetron HCL 4 MG/2 ML VIAL IVPUSH (08:44)
[2024-05-31] MEDS: hydrALAZINE HCl 50 MG TABLET PO ×3 (08:49→20:31)
[2024-05-31] MEDS: carvediloL 12.5 MG TABLET PO ×2 (08:54→20:31)
--- NOTE | 2024-05-31 09:47 | P.PNIM_ITS ---
Subjective Subjective Date of Service: 05/31/24 Interval History: Being followed for group B strep agalactiae bacteremia No new complaints today, looking forward to going home on mondays Review of Systems All other system reviewed and are negative. Physical Exam 2 Vital Signs: Vital Signs: Last Vital Signs Temp 97.3 F 05/31/24 07:08 Pulse 83 05/31/24 08:54 Resp 18 05/31/24 08:43 BP 190/100 H 05/31/24 08:54 Pulse Ox 97 05/31/24 07:08 O2 Del Method Room Air 05/31/24 07:08 O2 Flow Rate 3 05/30/24 03:53 BMI result Body Mass Index 26.0 Const: Other: Gen: in no acute distress HEENT: sclera anicteric, moist mucus membranes, blind Neck: supple, left subclavian hemodialysis catheter without surrounding redness, or warmth Lungs: clear to auscultation bilaterally Heart: regular rate and rhythm, no murmurs Abd: soft, non tender, non-distended Ext: no edema, s/p bilateral TMAs Skin: warm/well-perfused, multiple dry ulcers in various stages of healing on TMAs Neuro: alert and oriented x3, no focal weakness Psych: appropriate affect Objective Data Active Medications Acetaminophen (Acetaminophen 325 Mg Tablet) 650 mg PO Q6H PRN PRN Reason: Pain, Mild 1-3,fever,headache Last Admin: 05/30/24 09:04 Dose: 650 mg Documented By: BELINDA Albuterol Sulfate (Albuterol Sulfate 90 Mcg 8 Gm Inhaler) 2 puff INHALE RQ4H PRN PRN Reason: shortness of breath/wheezing Calcium Carbonate (Calcium Carbonate 750 Mg Tab.Chew) 750 mg PO Q4H PRN PRN Reason: Heartburn Carvedilol (Carvedilol 12.5 Mg Tablet) 12.5 mg PO BID [facility]; Protocol Last Admin: 05/31/24 08:54 Dose: 12.5 mg Documented By: RUBA Ceftriaxone Sodium (Ceftriaxone Sodium 2 Gm Vial) 2 gm IVPUSH Q24H [facility] Last Admin: 05/30/24 17:15 Dose: 2 gm Documented By: BELINDA Diphenhydramine HCl (Diphenhydramine Hcl 50 Mg/Ml Vial) 25 mg IVPUSH Q6H PRN PRN Reason: Itching Last Admin: 05/31/24 03:47 Dose: 25 mg Documented By: OLGA Heparin Sodium (Porcine) (Heparin Sodium,Porcine 5,000 Unit/Ml Vial) 5,000 unit SUBCUT Q12H [facility] Last Admin: 05/31/24 03:50 Dose: Not Given Documented By: OLGA Non-Admin Reason: Patient Refused Hydralazine HCl (Hydralazine Hcl 50 Mg Tablet) 50 mg PO TID [facility]; Protocol Last Admin: 05/31/24 08:49 Dose: 50 mg Documented By: RUBA Hydromorphone HCl (Hydromorphone Hcl 1 Mg/Ml Syringe) 0.5 mg IVPUSH Q4H PRN; Protocol PRN Reason: Pain, Severe (Pain Scale 7-10) Last Admin: 05/31/24 08:43 Dose: 0.5 mg Documented By: RUBA Lidocaine (Lidocaine 4 % Patch Adh..Patch) 1 patch TRANSDERMA DAILY PRN PRN Reason: Pain Magnesium Hydroxide (Milk Of Magnesia 30 Ml Oral.Susp) 30 ml PO DAILY PRN PRN Reason: Constipation Melatonin (Melatonin 3 Mg Tablet) 6 mg PO BEDTIME PRN PRN Reason: Insomnia Ondansetron HCl (Ondansetron Hcl 4 Mg/2 Ml Vial) 4 mg IVPUSH Q8H PRN PRN Reason: Nausea and Vomiting Last Admin: 05/31/24 08:44 Dose: 4 mg Documented By: RUBA Prochlorperazine Edisylate (Prochlorperazine Edisylate 10 Mg/2 Ml Vial) 5 mg IVPUSH Q6H PRN PRN Reason: Nausea and Vomiting Last Admin: 05/30/24 17:15 Dose: 5 mg Documented By: BELINDA Sodium Chloride (0.9 % Sodium Chloride Flush 3 Ml Syringe) 3 ml IVFLUSH QSHIFT [facility] Last Admin: 05/31/24 08:41 Dose: 3 ml Documented By: RUBA Labs 05/27/24 12:57 05/27/24 12:57 Labs: Laboratory Results - last 24 hr 05/31/24 07:19 POC Glucose 125 H Assessment and Plan (1) ESRD (end stage renal disease): Status: Acute (2) Bacteremia: Status: Acute Plan 33yo F with ESRD on HD TuThSa, DM2 with polyneuropathy/retinopathy with blindness, PAD s/p bilateral TMA, HTN, chronic hypoxic respiratory failure on 3- 4L O2, HFrEF, mood disorder, chronic pain with opioid-seeking behavior, and history multiple line infections with bacteremia with MSSA, Stenotrophomonas, and Pseudomonas. Presenting with acute nausea, vomiting, abdominal pain, and diarrhea and found to be septic. sepsis - sepsis resolved, WBC normalized - blood cultures 2/ grew strep agalactiae group B likely sources line infection vs. wound infection, CT abdomen and pelvis unremarkable, chest x-ray showed no abnormality - stool for C difficile PCR + GI panel un collected,due to no further diarrhea - s/p iv daptomycin and cefepime, transitioned to 2 g of ceftriaxone on 05/28 as per ID Case discussed with Dr. Siddiqi will pull hemodialysis catheter today after hemodialysis and repeat blood cultures, line cultures, if blood culture negative place temporary line on Sunday. Echo ordered hyperK/ ESRD , hyperkalemia resolved, continue hemodialysis Sunday, and Saturdays (receive hemodialysis on 05/30.) HTN continue carvedilol + hydralazine , few high blood pressure readings, follow bp. chronic hypoxic resp failure -stable, on 3L O2 at baseline Bilateral TMA seen by wound nurse Left Plantar Diabetic Wound? - dry callused resurfaced - central open area with creamy yellow drainage - seropurulent drainage - odor noted - consider surgical debridement of callus. adonay wound is noted for dark,non blanchable purple lifted pockets noted. recommend durafiber AG Bilateral Heels - Off load pressure with pillows. Left Plantar and Right Plantar - Cleanse with NS, pat dry. Apply skin prep allow to dry. Cover wound bed with Durafiber AG, cover with dry gauze, ABD pad and wrap. Change every other day. Right Dorsal - Cleanse with NS apply xeroform to wound bed cover with ABD pad and wrap. Change every other day. Surgical consult pending DM2 - stable blood sugars , dc correction-dose lispro,hbaic 5.7 in 03/22 , not on home insulin or oral hypoglycemics VTE prophylaxis heparin code status - full code requiring continued inpatient hospitalization for IV antibiotics and expert consultation Quality Stroke Does the patient have a stroke diagnosis?: No VTE Prior VTE?: No VTE Risk Level:: Medical - moderate - high VTE Device Contraindication: N/A - Device Ordered VTE Drug Contraindication: N/A - Med Ordered
[2024-05-31] MEDS: Prochlorperazine Edisylate 10 MG/2 ML VIAL 5 MG IVPUSH (11:48)
[2024-05-31] MEDS: cefTRIAXone sodium 2 GM VIAL IVPUSH (17:50)
[2024-06-01 04:00] VITALS: BP 167/77; PULSE 78; RESP 16; TEMP 36.4; O2SAT 94
[2024-06-01] MEDS: HYDROmorphone HCl 1 MG/ML SYRINGE 0.5 MG IVPUSH ×4 (05:22→20:24)
[2024-06-01] MEDS: diphenhydrAMINE HCL 50 MG/ML VIAL 25 MG IVPUSH ×3 (06:21→20:22)
--- NOTE | 2024-06-01 06:24 | PC.NURSE ---
Pt claimed having mild left ear pain and possible discharge as it felt sticky, no obvious discharge noted, will cont to monitor/ ffup.
[2024-06-01 07:10] VITALS: BP 188/84; PULSE 83; RESP 12; TEMP 36.2; O2SAT 97
[2024-06-01 07:17] LABS: Glucose, Whole Blood 129 mg/dL (60-115)
[2024-06-01] MEDS: Calcium Carbonate 750 MG TAB.CHEW PO (07:28)
[2024-06-01] MEDS: hydrALAZINE HCl 50 MG TABLET PO ×3 (07:28→20:21)
[2024-06-01] MEDS: carvediloL 12.5 MG TABLET PO ×2 (07:28→20:21)
[2024-06-01] MEDS: 0.9 % Sodium Chloride Flush 3 ML SYRINGE IVFLUSH ×2 (07:29→15:45)
[2024-06-01] MEDS: ondansetron HCL 4 MG/2 ML VIAL IVPUSH (07:29)
--- NOTE | 2024-06-01 07:48 | HO.PM.IMPN ---
Subjective Subjective Date of Service: 06/01/24 Interval History: Being followed for group B strep agalactiae bacteremia c/o left earache, BP intermittently high Review of Systems All other system reviewed and are negative. Physical Exam Vital Signs: Vital Signs: Last Vital Signs Temp 97.2 F 06/01/24 07:10 Pulse 83 06/01/24 07:10 Resp 12 06/01/24 07:10 BP 188/84 H 06/01/24 07:10 Pulse Ox 97 06/01/24 07:10 O2 Del Method Room Air 06/01/24 07:10 O2 Flow Rate 3 05/30/24 03:53 BMI result Body Mass Index 26.0 Const: Other: Gen: in no acute distress HEENT: sclera anicteric, moist mucus membranes, blind Neck: supple, left subclavian hemodialysis catheter without surrounding redness, or warmth Lungs: clear to auscultation bilaterally Heart: regular rate and rhythm, no murmurs Abd: soft, non tender, non-distended Ext: no edema, s/p bilateral TMAs Skin: warm/well-perfused, multiple dry ulcers in various stages of healing on TMAs Neuro: alert and oriented x3, no focal weakness Psych: appropriate affect Objective Data Active Medications Acetaminophen (Acetaminophen 325 Mg Tablet) 650 mg PO Q6H PRN PRN Reason: Pain, Mild 1-3,fever,headache Last Admin: 05/30/24 09:04 Dose: 650 mg Documented By: BELINDA Albuterol Sulfate (Albuterol Sulfate 90 Mcg 8 Gm Inhaler) 2 puff INHALE RQ4H PRN PRN Reason: shortness of breath/wheezing Calcium Carbonate (Calcium Carbonate 750 Mg Tab.Chew) 750 mg PO Q4H PRN PRN Reason: Heartburn Last Admin: 06/01/24 07:28 Dose: 750 mg Documented By: RUBA Carvedilol (Carvedilol 12.5 Mg Tablet) 12.5 mg PO BID [facility]; Protocol Last Admin: 06/01/24 07:28 Dose: 12.5 mg Documented By: RUBA Ceftriaxone Sodium (Ceftriaxone Sodium 2 Gm Vial) 2 gm IVPUSH Q24H [facility] Last Admin: 05/31/24 17:50 Dose: 2 gm Documented By: RUBA Diphenhydramine HCl (Diphenhydramine Hcl 50 Mg/Ml Vial) 25 mg IVPUSH Q6H PRN PRN Reason: Itching Last Admin: 06/01/24 06:21 Dose: 25 mg Documented By: OLGA Heparin Sodium (Porcine) (Heparin Sodium,Porcine 5,000 Unit/Ml Vial) 5,000 unit SUBCUT Q12H [facility] Last Admin: 06/01/24 04:08 Dose: Not Given Documented By: OLGA Non-Admin Reason: Patient Refused Hydralazine HCl (Hydralazine Hcl 50 Mg Tablet) 50 mg PO TID [facility]; Protocol Last Admin: 06/01/24 07:28 Dose: 50 mg Documented By: RUBA Hydromorphone HCl (Hydromorphone Hcl 1 Mg/Ml Syringe) 0.5 mg IVPUSH Q4H PRN; Protocol PRN Reason: Pain, Severe (Pain Scale 7-10) Last Admin: 06/01/24 05:22 Dose: 0.5 mg Documented By: OLGA Lidocaine (Lidocaine 4 % Patch Adh..Patch) 1 patch TRANSDERMA DAILY PRN PRN Reason: Pain Magnesium Hydroxide (Milk Of Magnesia 30 Ml Oral.Susp) 30 ml PO DAILY PRN PRN Reason: Constipation Melatonin (Melatonin 3 Mg Tablet) 6 mg PO BEDTIME PRN PRN Reason: Insomnia Ondansetron HCl (Ondansetron Hcl 4 Mg/2 Ml Vial) 4 mg IVPUSH Q8H PRN PRN Reason: Nausea and Vomiting Last Admin: 06/01/24 07:29 Dose: 4 mg Documented By: RUBA Prochlorperazine Edisylate (Prochlorperazine Edisylate 10 Mg/2 Ml Vial) 5 mg IVPUSH Q6H PRN PRN Reason: Nausea and Vomiting Last Admin: 05/31/24 11:48 Dose: 5 mg Documented By: RUBA Sodium Chloride (0.9 % Sodium Chloride Flush 3 Ml Syringe) 3 ml IVFLUSH QSHIFT [facility] Last Admin: 06/01/24 07:29 Dose: 3 ml Documented By: RUBA Labs 05/27/24 12:57 05/27/24 12:57 Labs: Laboratory Results - last 24 hr 06/01/24 07:13 POC Glucose 129 H Microbiology Microbiology Results: Microbiology 05/30/24 10:20 Blood Culture - Preliminary Blood - Venous No growth after 24 hours. 05/30/24 09:41 Blood Culture - Preliminary Blood - Venous No growth after 24 hours. 05/30/24 11:15 Catheter Tip Culture - Preliminary Catheter Tip - Other No growth after 1 day Assessment and Plan (1) ESRD (end stage renal disease): Status: Acute (2) Bacteremia: Status: Acute Plan 33yo F with ESRD on HD TuThSa, DM2 with polyneuropathy/retinopathy with blindness, PAD s/p bilateral TMA, HTN, chronic hypoxic respiratory failure on 3-4L O2, HFrEF, mood disorder, chronic pain with opioid-seeking behavior, and history multiple line infections with bacteremia with MSSA, Stenotrophomonas, and Pseudomonas. Presenting with acute nausea, vomiting, abdominal pain, and diarrhea and found to be septic. sepsis - sepsis resolved, WBC normalized - blood cultures 2/2 grew strep agalactiae group B likely sources line infection vs. wound infection, CT abdomen and pelvis unremarkable, chest x-ray showed no abnormality - stool for C difficile PCR + GI panel un collected,due to no further diarrhea - s/p iv daptomycin and cefepime, transitioned to 2 g of ceftriaxone on 05/28 as per ID Per Nephro Dialysis catheter was removed on Tuesday 05/30, tip sent for culture, blood cultures repeated if negative, will have a temp catheter for dialysis on Friday 06/02 -echo 05/30 no vegetations hyperK/ ESRD , hyperkalemia resolved, continue hemodialysis Sunday, and Saturdays (receive hemodialysis on 05/30.) HTN continue carvedilol + hydralazine , intermittently high, monitor for now chronic hypoxic resp failure -stable, on 3L O2 at baseline Bilateral TMA seen by wound nurse Left Plantar Diabetic Wound? - dry callused resurfaced - central open area with creamy yellow drainage - seropurulent drainage - odor noted - consider surgical debridement of callus. adonay wound is noted for dark,non blanchable purple lifted pockets noted. recommend durafiber AG Bilateral Heels - Off load pressure with pillows. Left Plantar and Right Plantar - Cleanse with NS, pat dry. Apply skin prep allow to dry. Cover wound bed with Durafiber AG, cover with dry gauze, ABD pad and wrap. Change every other day. Right Dorsal - Cleanse with NS apply xeroform to wound bed cover with ABD pad and wrap. Change every other day. Surgical consult pending DM2 - stable blood sugars , dc correction-dose lispro,hbaic 5.7 in 03/22 , not on home insulin or oral hypoglycemics VTE prophylaxis heparin code status - full code requiring continued inpatient hospitalization for IV antibiotics and expert consultation, awaiting dialysis catheter Quality Stroke Does the patient have a stroke diagnosis?: No VTE Prior VTE?: No VTE Risk Level:: Medical - moderate - high VTE Device Contraindication: N/A - Device Ordered VTE Drug Contraindication: N/A - Med Ordered
[2024-06-01 09:45] VITALS: RESP 16
[2024-06-01] MEDS: Prochlorperazine Edisylate 10 MG/2 ML VIAL 5 MG IVPUSH (09:47)
[2024-06-01 14:02] VITALS: RESP 16
[2024-06-01 15:36] VITALS: BP 174/79; PULSE 80; RESP 14; TEMP 36.7; O2SAT 97
[2024-06-01] MEDS: cefTRIAXone sodium 2 GM VIAL IVPUSH (16:45)
[2024-06-01 20:00] VITALS: BP 158/88; PULSE 83; RESP 18; TEMP 36.2; O2SAT 98
[2024-06-02] MEDS: HYDROmorphone HCl 1 MG/ML SYRINGE 0.5 MG IVPUSH ×6 (00:25→21:15)
[2024-06-02] MEDS: diphenhydrAMINE HCL 50 MG/ML VIAL 25 MG IVPUSH ×3 (02:28→18:29)
[2024-06-02] MEDS: Prochlorperazine Edisylate 10 MG/2 ML VIAL 5 MG IVPUSH ×3 (02:32→21:13)
[2024-06-02 04:00] VITALS: BP 164/76; PULSE 79; RESP 18; TEMP 36.4; O2SAT 96
[2024-06-02 07:26] VITALS: BP 180/94; PULSE 79; RESP 16; TEMP 36.2; O2SAT 97
[2024-06-02 07:27] LABS: Glucose, Whole Blood 89 mg/dL (60-115)
[2024-06-02] MEDS: hydrALAZINE HCl 50 MG TABLET PO ×3 (08:51→21:12)
[2024-06-02] MEDS: carvediloL 12.5 MG TABLET PO ×2 (08:51→21:12)
[2024-06-02] MEDS: 0.9 % Sodium Chloride Flush 3 ML SYRINGE IVFLUSH ×2 (08:55→15:06)
--- NOTE | 2024-06-02 12:35 | PM.PNNEP ---
Subjective Subjective Date of Service: 06/02/24 Interval history: seen and examined no complaints Physical Exam Vital Signs: Vital Signs: Last Vital Signs Temp 97.1 F 06/02/24 07:26 Pulse 79 06/02/24 07:26 Resp 16 06/02/24 07:26 BP 180/94 H 06/02/24 07:26 Pulse Ox 97 06/02/24 07:26 O2 Del Method Room Air 06/02/24 07:26 O2 Flow Rate 3 05/30/24 03:53 BMI result Body Mass Index 26.0 Const: General: no acute distress Neck: Neck: Yes supple Resp: Auscultation: diminished lung sounds Cardio: Heart sounds: S1 normal heart sound present and S2 normal heart sound present GI: Palpation (GI): Soft to palpation and nontender Extrem: Left upper extremity: edema Objective Data Labs 05/27/24 12:57 05/27/24 12:57 Labs: Laboratory Results - last 24 hr 06/02/24 07:22 POC Glucose 89 Microbiology Microbiology Results: Microbiology 05/30/24 11:15 Catheter Tip - Other Catheter Tip Culture - Final No growth. 05/27/24 12:57 Blood - Central Line Blood Culture - Final No growth after 5 days. 05/30/24 10:20 Blood - Venous Blood Culture - Preliminary No growth after 48 hours. 05/30/24 09:41 Blood - Venous Blood Culture - Preliminary No growth after 48 hours. 05/25/24 14:24 Blood - Venous Blood Culture - Final Strep agalactiae (Grp B) 05/25/24 14:07 Blood - Venous Blood Culture - Final Strep agalactiae (Grp B) Procedures Date of Service Date of Service: 06/02/24 Assessment & Plan Assessment and plan (1) ESRD (end stage renal disease): Status: Acute (2) Bacteremia: Status: Acute (3) Anemia: Status: Acute Plan ESRD on HD t-t-s at [facility] via PC admitted with line infection blood culture negative now echocardiogram negative for vegetation nephrogenic anemia REC HD in am dialysis tunnelled catheter today per IR ABx x 6 weeks on ceftriaxone VIPUL P binder renal diet Time Spent With Patient Time: Total time managing care of this patient today ____ minutes. Progress Note: Quality Stroke Does the patient have a stroke diagnosis?: No
[2024-06-02 15:21] VITALS: BP 172/94; PULSE 79; RESP 18; TEMP 36.1; O2SAT 95
--- NOTE | 2024-06-02 15:22 | MHC.CM.PN ---
per rounds pt not ready for dc having a perma cath placed dc planremains resume services
--- NOTE | 2024-06-02 16:18 | HO.PM.IMPN ---
Subjective Subjective Date of Service: 06/02/24 Interval History: Being followed for bacteremia Was nauseous this morning denies fever, no chills, no acute events overnight. Review of Systems All other system reviewed and are negative Physical Exam Vital Signs: Vital Signs: Last Vital Signs Temp 96.9 F 06/02/24 15:21 Pulse 79 06/02/24 15:21 Resp 18 06/02/24 15:21 BP 172/94 H 06/02/24 15:21 Pulse Ox 95 06/02/24 15:21 O2 Del Method Room Air 06/02/24 15:21 O2 Flow Rate 3 05/30/24 03:53 BMI result Body Mass Index 26.0 Const: Other: Gen: in no acute distress HEENT: sclera anicteric, moist mucus membranes, blind Neck: supple Lungs: clear to auscultation bilaterally Heart: regular rate and rhythm, no murmurs Abd: soft, non tender, non-distended Ext: no edema, s/p bilateral TMAs Skin: warm/well-perfused, multiple dry ulcers in various stages of healing on TMAs Neuro: alert and oriented x3, no focal weakness Psych: appropriate affect Objective Data Active Medications Acetaminophen (Acetaminophen 325 Mg Tablet) 650 mg PO Q6H PRN PRN Reason: Pain, Mild 1-3,fever,headache Last Admin: 05/30/24 09:04 Dose: 650 mg Documented By: BELINDA Albuterol Sulfate (Albuterol Sulfate 90 Mcg 8 Gm Inhaler) 2 puff INHALE RQ4H PRN PRN Reason: shortness of breath/wheezing Calcium Carbonate (Calcium Carbonate 750 Mg Tab.Chew) 750 mg PO Q4H PRN PRN Reason: Heartburn Last Admin: 06/01/24 07:28 Dose: 750 mg Documented By: RUBA Carvedilol (Carvedilol 12.5 Mg Tablet) 12.5 mg PO BID [facility]; Protocol Last Admin: 06/02/24 08:51 Dose: 12.5 mg Documented By: ISMAEL Ceftriaxone Sodium (Ceftriaxone Sodium 2 Gm Vial) 2 gm IVPUSH Q24H [facility] Last Admin: 06/01/24 16:45 Dose: 2 gm Documented By: RUBA Diphenhydramine HCl (Diphenhydramine Hcl 50 Mg/Ml Vial) 25 mg IVPUSH Q6H PRN PRN Reason: Itching Last Admin: 06/02/24 12:19 Dose: 25 mg Documented By: ISMAEL Heparin Sodium (Porcine) (Heparin Sodium,Porcine 5,000 Unit/Ml Vial) 5,000 unit SUBCUT Q12H [facility] Last Admin: 06/02/24 15:06 Dose: Not Given Documented By: ISMAEL Non-Admin Reason: Patient Refused Hydralazine HCl (Hydralazine Hcl 50 Mg Tablet) 50 mg PO TID [facility]; Protocol Last Admin: 06/02/24 15:06 Dose: 50 mg Documented By: ISMAEL Hydromorphone HCl (Hydromorphone Hcl 1 Mg/Ml Syringe) 0.5 mg IVPUSH Q4H PRN; Protocol PRN Reason: Pain, Severe (Pain Scale 7-10) Last Admin: 06/02/24 13:00 Dose: 0.5 mg Documented By: ISMAEL Lidocaine (Lidocaine 4 % Patch Adh..Patch) 1 patch TRANSDERMA DAILY PRN PRN Reason: Pain Magnesium Hydroxide (Milk Of Magnesia 30 Ml Oral.Susp) 30 ml PO DAILY PRN PRN Reason: Constipation Melatonin (Melatonin 3 Mg Tablet) 6 mg PO BEDTIME PRN PRN Reason: Insomnia Ondansetron HCl (Ondansetron Hcl 4 Mg/2 Ml Vial) 4 mg IVPUSH Q8H PRN PRN Reason: Nausea and Vomiting Last Admin: 06/01/24 07:29 Dose: 4 mg Documented By: RUBA Prochlorperazine Edisylate (Prochlorperazine Edisylate 10 Mg/2 Ml Vial) 5 mg IVPUSH Q6H PRN PRN Reason: Nausea and Vomiting Last Admin: 06/02/24 08:51 Dose: 5 mg Documented By: ISMAEL Sodium Chloride (0.9 % Sodium Chloride Flush 3 Ml Syringe) [address] [facility] Last Admin: 06/02/24 15:06 Dose: 3 ml Documented By: ISMAEL Labs 05/27/24 12:57 05/27/24 12:57 Labs: Laboratory Results - last 24 hr 06/02/24 07:22 POC Glucose 89 Microbiology Microbiology Results: Microbiology 05/30/24 11:15 Catheter Tip Culture - Final Catheter Tip - Other No growth. 05/27/24 12:57 Blood Culture - Final Blood - Central Line No growth after 5 days. 05/30/24 10:20 Blood Culture - Preliminary Blood - Venous No growth after 48 hours. Assessment and Plan (1) ESRD (end stage renal disease): Status: Acute (2) Bacteremia: Status: Acute Plan 33yo F with ESRD on HD TuThSa, DM2 with polyneuropathy/retinopathy with blindness, PAD s/p bilateral TMA, HTN, chronic hypoxic respiratory failure on 3-4L O2, HFrEF, mood disorder, chronic pain with opioid-seeking behavior, and history multiple line infections with bacteremia with MSSA, Stenotrophomonas, and Pseudomonas. Presenting with acute nausea, vomiting, abdominal pain, and diarrhea and found to be septic. sepsis sepsis resolved, WBC normalized blood cultures 2/2 grew strep agalactiae group B, likely sources line infection vs. wound infection, CT abdomen and pelvis unremarkable, chest x-ray showed no abnormality - stool for C difficile PCR + GI panel un collected,due to no further diarrhea - s/p iv daptomycin and cefepime, transitioned to 2 g of ceftriaxone on 05/28 as per ID Per Nephro Dialysis catheter was removed on Tuesday 05/30, tip sent for culture, blood cultures repeated both catheter tip and blood cultures negative PermCath ordered to be placed at a.m. by IR keep NPO after midnight echo 05/30 no vegetations hyperK/ ESRD , hyperkalemia resolved, continue hemodialysis Sunday, and Saturdays (receive hemodialysis on 05/30.) HTN continue carvedilol + hydralazine , noted to have few high blood pressure readings will increase dose of hydralazine to 75 mg t.i.d. and monitor BP chronic hypoxic resp failure -stable, on 3L O2 at baseline Bilateral TMA seen by wound nurse Left Plantar Diabetic Wound? - dry callused resurfaced - central open area with creamy yellow drainage - seropurulent drainage - odor noted - consider surgical debridement of callus. adonay wound is noted for dark,non blanchable purple lifted pockets noted. recommend durafiber AG Bilateral Heels - Off load pressure with pillows. Left Plantar and Right Plantar - Cleanse with NS, pat dry. Apply skin prep allow to dry. Cover wound bed with Durafiber AG, cover with dry gauze, ABD pad and wrap. Change every other day. Right Dorsal - Cleanse with NS apply xeroform to wound bed cover with ABD pad and wrap. Change every other day. Surgical consult pending DM2 - stable blood sugars , dc correction-dose lispro,hbaic 5.7 in 03/22 , not on home insulin or oral hypoglycemics VTE prophylaxis heparin code status - full code requiring continued inpatient hospitalization for IV antibiotics and awaiting dialysis catheter placement. Quality Stroke Does the patient have a stroke diagnosis?: No VTE Prior VTE?: No VTE Risk Level:: Medical - moderate - high VTE Device Contraindication: N/A - Device Ordered VTE Drug Contraindication: N/A - Med Ordered
[2024-06-02] MEDS: cefTRIAXone sodium 2 GM VIAL IVPUSH (17:13)
[2024-06-02 20:00] VITALS: BP 167/85; PULSE 77; RESP 18; TEMP 36.5; O2SAT 98
[2024-06-03] VITALS (15 sets, daily range): BP systolic 137–172; BP diastolic 52–88; PULSE 73–82; RESP 13–22; TEMP 36–36.5; O2SAT 95–100
[2024-06-03] MEDS: diphenhydrAMINE HCL 50 MG/ML VIAL 25 MG IVPUSH ×3 (01:14→20:39)
[2024-06-03] MEDS: HYDROmorphone HCl 1 MG/ML SYRINGE 0.5 MG IVPUSH ×4 (01:16→18:27)
[2024-06-03] MEDS: Calcium Carbonate 750 MG TAB.CHEW PO ×2 (05:19→11:32)
[2024-06-03] MEDS: ondansetron HCL 4 MG/2 ML VIAL IVPUSH (05:56)
[2024-06-03] MEDS: carvediloL 12.5 MG TABLET PO ×2 (09:23→20:33)
[2024-06-03] MEDS: hydrALAZINE HCl 25 MG TABLET 75 MG PO ×3 (09:23→20:33)
[2024-06-03 09:24] LABS: Glucose, Whole Blood 91 mg/dL (60-115)
[2024-06-03] MEDS: 0.9 % Sodium Chloride Flush 3 ML SYRINGE IVFLUSH ×2 (09:26→17:44)
[2024-06-03] MEDS: Prochlorperazine Edisylate 10 MG/2 ML VIAL 5 MG IVPUSH (11:32)
[2024-06-03] MEDS: fentaNYL citrate/PF 100 MCG/2 ML VIAL 25 MCG IVPUSH ×2 (13:17→13:25)
[2024-06-03] MEDS: Midazolam HCl 2 MG/2 ML VIAL 0.5 MG IVPUSH ×2 (13:19→13:25)
--- NOTE | 2024-06-03 16:26 | PM.DS ---
DS: Providers Provider Date of Service: 06/04/24 Date of admission: 05/25/24 15:30 Date of discharge: 06/04/24 Primary care physician: Genevieve Casillas MD Consults: 05/25/24 14:50 Consult to Nephrology Routine Consulting Provider: [facility] Reason for consultation: ESRD on HD 05/25/24 15:29 Consult to Wound Care Routine Reason for consultation: bialteral TMAs 05/25/24 15:37 Consult to Infectious Diseases Routine Consulting Provider: [facility] Reason for consultation: septic 05/27/24 12:37 Consult to General Surgery Routine Consulting Provider: [facility] General Surgeons Reason for consultation: surgical debridement of left plantar wound debridement Has provider been notified: No DS: Diagnosis Discharge Diagnosis (1) ESRD (end stage renal disease): Status: Acute (2) Bacteremia: Status: Acute DS: Summary Hospital Course Hospital Course: Date of Service: 05/25/24 Chief Complaint: fever 33yo F with ESRD on HD TuThSa, DM2 with polyneuropathy/retinopathy with blindness, PAD s/p bilateral TMA, HTN, chronic hypoxic respiratory failure on 3-4L O2, HFrEF, mood disorder, chronic pain with opioid-seeking behavior, and history multiple line infections with bacteremia with MSSA, Stenotrophomonas, and Pseudomonas. Last infection was with MSSA and she completed IV cefazolin 04/03/24. She was in her usual state of health but last night developed nausea, vomiting, and generalized abdominal pain. Some watery diarrhea as well. No hematochezia or melena. Complains of dry cough without sputum, no sore throat. She did go to HD yesterday though historically has not had good adherence to HD. In the ED, she was found to be septic with fever, tachycardia, tachypnea, and leukocytosis. Blood cultures were drawn and she was given ceftriaxone and cefazolin. K elevated to 5.9. Hospital course: 33yo F with ESRD on HD TuThSa, DM2 with polyneuropathy/retinopathy with blindness, PAD s/p bilateral TMA, HTN, chronic hypoxic respiratory failure on 3-4L O2, HFrEF, mood disorder, chronic pain with opioid-seeking behavior, and history multiple line infections with bacteremia with MSSA, Stenotrophomonas, and Pseudomonas. Presenting with acute nausea, vomiting, abdominal pain, and diarrhea and found to be septic. Sepsis blood cultures 03/30 grew strep agalactiae group B, likely sources line infection vs. wound infection, CT abdomen and pelvis unremarkable, chest x-ray showed no abnormality , echo showed no vegetation, initially treated with IV daptomycin and cefepime subsequently transitioned to 2 g of ceftriaxone on 05/28 as per ID , Nephro Dialysis catheter was removed on Tuesday 05/30, tip and blood cultures repeated ,both catheter tip and blood cultures negative, PermCath placed on 06/03 , patient underwent hemodialysis and now being discharged home on Ancef 3 times a week post hemodialysis for total 6 weeks hyperK/ ESRD , hyperkalemia resolved, continue hemodialysis Sunday, and Saturdays. HTN continue carvedilol + hydralazine and follow BP closely. Chronic hypoxic resp failure -stable, on 3L O2 at baseline Bilateral TMA seen by wound nurse Left Plantar Diabetic Wound? - dry callused resurfaced - central open area with creamy yellow drainage - seropurulent drainage - odor noted recommend durafiber AG Bilateral Heels - Off load pressure with pillows. Left Plantar and Right Plantar - Cleanse with NS, pat dry. Apply skin prep allow to dry. Cover wound bed with Durafiber AG, cover with dry gauze, ABD pad and wrap. Change every other day. Right Dorsal - Cleanse with NS apply xeroform to wound bed cover with ABD pad and wrap. Change every other day. Recommend outpatient follow-up with Dr. Rajput for left heel wound. DM2 - stable blood sugars , hbaic 5.7 in 03/22 , not on home insulin or oral hypoglycemics Time Attestation Discharge Coordination Time (in mins): 40 Quality: Safe Use of Opioids Does Pt have an Active Cancer Diagnosis on the Problem List?: No Quality: Stroke Does the patient have a stroke diagnosis?: No Physical Exam Vital Signs: Vital Signs: Last Vital Signs Temp 97.5 F 06/03/24 14:00 Pulse 77 06/03/24 14:15 Resp 18 06/03/24 14:15 BP 137/81 06/03/24 14:15 Pulse Ox 98 06/03/24 14:15 O2 Del Method Room Air 06/03/24 14:15 O2 Flow Rate 2 06/03/24 13:40 BMI result Body Mass Index 26.0 Const: Other: Gen: in no acute distress HEENT: sclera anicteric, moist mucus membranes, blind Neck: supple Lungs: clear to auscultation bilaterally Heart: regular rate and rhythm, no murmurs Abd: soft, non tender, non-distended Ext: no edema, s/p bilateral TMAs Skin: warm/well-perfused, multiple dry ulcers in various stages of healing on TMAs. Neuro: alert and oriented x3, no focal weakness Psych: appropriate affect DS: Data Data Completed and Pending Completed studies during hospitalization [Text1]: Procedures Detachment at Left 2nd Toe, Complete, Open Approach (09/08/23) Detachment at Left 3rd Toe, Complete, Open Approach (09/08/23) Detachment at Left 4th Toe, Complete, Open Approach (09/08/23) Detachment at Right Foot, Partial 1st Ray, Open Approach (03/01/20) Detachment at Right Foot, Partial 2nd Ray, Open Approach (03/01/20) Detachment at Right Foot, Partial 3rd Ray, Open Approach (03/01/20) Detachment at Right Foot, Partial 4th Ray, Open Approach (03/01/20) Detachment at Right Foot, Partial 5th Ray, Open Approach (03/01/20) Drainage of Right Pleural Cavity, Percutaneous Approach (01/14/21) Excision of Left Foot Muscle, Open Approach (01/14/24) Excision of Left Foot Skin, External Approach (10/08/23) Excision of Left Foot Subcutaneous Tissue and Fascia, Open Approach (10/08/23) Excision of Right Foot Skin, External Approach (08/27/23) Excision of Stomach, Pylorus, Via Natural or Artificial Opening Endoscopic, Diagnostic (08/27/22) Fluoroscopy of Superior Vena Cava, Guidance (08/14/22) Insertion of Endotracheal Airway into Trachea, Via Natural or Artificial Opening (11/10/23) Insertion of Infusion Device into Right Atrium, Percutaneous Approach (02/25/24) Insertion of Infusion Device into Superior Vena Cava, Percutaneous Approach (02/25/24) Insertion of Infusion Device into Upper Vein, Percutaneous Approach (01/14/24) Insertion of Tunneled Vascular Access Device into Chest Subcutaneous Tissue and Fascia, Percutaneous Approach (02/25/24) Introduction of Vasopressor into Peripheral Vein, Percutaneous Approach (11/10/23) Isolation (11/10/23) Performance of Urinary Filtration, Intermittent, Less than 6 Hours Per Day (02/25/24) Removal of Infusion Device from Great Vessel, External Approach (01/14/21) Removal of Infusion Device from Heart, External Approach (01/14/24) Respiratory Ventilation, Greater than 96 Consecutive Hours (11/10/23) Transfusion of Nonautologous Red Blood Cells into Peripheral Vein, Percutaneous Approach (11/10/23) Ultrasonography of Superior Vena Cava, Guidance (02/25/24) Labs on day of discharge: Laboratory Results - last 24 hr 06/03/24 09:19 POC Glucose 91 Preliminary micro results at discharge 05/30/24 10:20 Blood Culture - Preliminary Blood - Venous No growth after 48 hours. 05/30/24 09:41 Blood Culture - Preliminary Blood - Venous No growth after 48 hours. Discharge Plan Discharge Anticipated Discharge Date/Time: 06/04/24 14:54 Patient Disposition: Home, Self-Care Discharge Diagnosis: Group B strep agalactiae bacteremia Referrals: Genevieve Gtz MD [Primary Care Provider] - 1 Week Discharge Medications: New cefazolin 2 gram recon soln 2 g IV ./ and Sun Rx Instructions: 2 g cefazolin IV Sunday and Sunday post hemodialysis, end date July 11 Continued carvedilol 12.5 mg Tablet 12.5 mg PO BID 90 Days Qty: 180 0RF Protocol: Hold for SBP/HR < HOLD for SBP < : 90 HOLD for HR < : 60 hydralazine 50 mg Tablet 50 mg PO TID 90 Days Qty: 270 0RF Protocol: Hold for SBP< HOLD for SBP < : 90 acetaminophen 325 mg tablet 650 mg PO Q4H PRN (Reason: mild pain) oxycodone 5 mg tablet 5 mg PO Q8H PRN (Reason: Pain) lidocaine 5 % adhesive patch,medicated 1 patch topical DAILY PRN (Reason: Pain) nitroglycerin 0.4 mg tablet, sublingual 0.4 mg sublingual DIRECTED PRN (Reason: Angina) albuterol sulfate [Ventolin HFA] 90 mcg/actuation HFA aerosol inhaler 2 puff inhalation Q6H PRN (Reason: wheezing) Discharge Orders: Discharge Order (Routine); Ordered 06/04/24 Ordered By: Scarlet Arora Diet: Diabetic diet Activity on Discharge: As tolerated Stand Alone Forms: Patient Portal Discharge page Print Language: Czech Care Plan Goals: strep agalactiae bacteremia, repeat blood blood culture neg Ancef 2 g post hemodialysis Sunday, and Saturdays end date July 11 New PermCath placed on 06/03/24 Health Concerns: Continue all home medications as before Plan of Treatment: Continue outpatient hemodialysis Tuesdays and Saturdays as before Outpatient follow-up with primary care physician and with Nephrology outpt follow up with general surgery for left foot wound follow-up call for appointment. Assessment: As above Discharge Date/Time: 06/04/24 13:10
--- NOTE | 2024-06-03 16:50 | PC.NURSE ---
Unknown at this time if [facility] will be able to pre auth transport for this patient for discharge. Message left for PÉREZ and Eric.
--- NOTE | 2024-06-03 17:07 | PC.NURSE ---
unable to book ambulance with [facility] at this time.
[2024-06-03] MEDS: cefTRIAXone sodium 2 GM VIAL IVPUSH (17:40)
[2024-06-03] MEDS: ceFAZolin Sodium/Dextrose,Iso 2 GM/50 ML PIGGYBACK IV (17:44)
[2024-06-03] MEDS: Melatonin 3 MG TABLET 6 MG PO (20:32)
[2024-06-03] MEDS: HYDROmorphone HCl 0.5 MG/0.5 ML SYRINGE IVPUSH (20:35)
[2024-06-04] MEDS: HYDROmorphone HCl 1 MG/ML SYRINGE 0.5 MG IVPUSH ×3 (01:32→14:30)
[2024-06-04] MEDS: 0.9 % Sodium Chloride Flush 3 ML SYRINGE IVFLUSH ×3 (01:40→14:30)
[2024-06-04 03:27] VITALS: BP 132/60; PULSE 73; RESP 16; TEMP 36.1; O2SAT 97
[2024-06-04] MEDS: diphenhydrAMINE HCL 50 MG/ML VIAL 25 MG IVPUSH ×2 (05:14→14:31)
[2024-06-04] MEDS: Prochlorperazine Edisylate 10 MG/2 ML VIAL 5 MG IVPUSH (05:17)
[2024-06-04 06:44] VITALS: BP 135/62; PULSE 76; RESP 16; TEMP 36.6; O2SAT 98
[2024-06-04 06:57] LABS: Glucose, Whole Blood 90 mg/dL (60-115)
[2024-06-04 08:11] VITALS: BP 133/80
[2024-06-04 08:15] VITALS: PULSE 80
[2024-06-04] MEDS: carvediloL 12.5 MG TABLET PO (08:15)
[2024-06-04] MEDS: hydrALAZINE HCl 25 MG TABLET 75 MG PO ×2 (08:16→14:28)
--- NOTE | 2024-06-04 10:36 | MHC.CM.PN ---
pt home self care by ramon at 3
[2024-06-04 14:23] VITALS: BP 148/67; PULSE 79; RESP 16; TEMP 36.9; O2SAT 99
[2024-06-04] MEDS: Calcium Carbonate 750 MG TAB.CHEW PO (14:28)
[2024-06-04 15:00] VITALS: BP 124/74; PULSE 80; TEMP 36.6
--- NOTE | 2024-06-04 15:54 | P.PNIM_ITS ---
Subjective Subjective Date of Service: 06/03/24 Interval History: Scheduled for PermCath placement and hemodialysis Offers no acute complaints, had 1 episode of vomiting , NPO for procedure wishes to be discharged home after hemodialysis Review of Systems All other system reviewed and are negative Physical Exam 2 Vital Signs: Vital Signs: Last Vital Signs Temp 98 F 06/04/24 15:00 Pulse 80 06/04/24 15:00 Resp 16 06/04/24 14:23 BP 124/74 06/04/24 15:00 Pulse Ox 99 06/04/24 14:23 O2 Del Method Room Air 06/04/24 14:23 O2 Flow Rate 2 06/03/24 13:40 BMI result Body Mass Index 26.0 Const: Other: Gen: in no acute distress HEENT: sclera anicteric, moist mucus membranes, blind Right PermCath in place Neck: supple Lungs: clear to auscultation bilaterally Heart: regular rate and rhythm, no murmurs Abd: soft, non tender, non-distended Ext: no edema, s/p bilateral TMAs Skin: warm/well-perfused, multiple dry ulcers in various stages of healing on TMAs, left plantar diabetic wound with minimal yellow drainage. Neuro: alert and oriented x3, no focal weakness Psych: appropriate affect Objective Data Labs 05/27/24 12:57 05/27/24 12:57 Labs: Laboratory Results - last 24 hr 06/04/24 06:50 POC Glucose 90 Microbiology Microbiology Results: Microbiology 05/30/24 10:20 Blood Culture - Final Blood - Venous No growth after 5 days. 05/30/24 09:41 Blood Culture - Final Blood - Venous No growth after 5 days. Assessment and Plan (1) ESRD (end stage renal disease): Status: Acute (2) Bacteremia: Status: Acute (3) Fever: Status: Acute (4) Sepsis: Status: Acute Plan 33yo F with ESRD on HD TuThSa, DM2 with polyneuropathy/retinopathy with blindness, PAD s/p bilateral TMA, HTN, chronic hypoxic respiratory failure on 3- 4L O2, HFrEF, mood disorder, chronic pain with opioid-seeking behavior, and history multiple line infections with bacteremia with MSSA, Stenotrophomonas, and Pseudomonas. Presenting with acute nausea, vomiting, abdominal pain, and diarrhea and found to be septic. sepsis sepsis resolved, WBC normalized blood cultures 2/2 grew strep agalactiae group B, likely sources line infection vs. wound infection, CT abdomen and pelvis unremarkable, chest x-ray showed no abnormality - stool for C difficile PCR + GI panel un collected,due to no further diarrhea, echo showed no vegetation - s/p iv daptomycin and cefepime, transitioned to 2 g of ceftriaxone on 05/28 as per ID , upon discharge patient will be placed on Ancef 2 g post hemodialysis for total 6 weeks Per Nephro Dialysis catheter was removed on Tuesday 05/30, tip sent for culture, blood cultures repeated both catheter tip and blood cultures negative PermCath placed on 06/03 , post PermCath placement patient tolerated hemodialysis, continue pain medicine for PermCath catheter site discomfort. hyperK/ ESRD , hyperkalemia resolved, continue hemodialysis Sunday, and Saturdays (receive hemodialysis on 05/30.) HTN continue carvedilol + hydralazine , noted to have few high blood pressure readings will increase dose of hydralazine to 75 mg t.i.d. and monitor BP chronic hypoxic resp failure -stable, on 3L O2 at baseline Bilateral TMA seen by wound nurse Left Plantar Diabetic Wound? - dry callused resurfaced - central open area with creamy yellow drainage - seropurulent drainage - odor noted - consider surgical debridement of callus. adonay wound is noted for dark,non blanchable purple lifted pockets noted. recommend durafiber AG Bilateral Heels - Off load pressure with pillows. Left Plantar and Right Plantar - Cleanse with NS, pat dry. Apply skin prep allow to dry. Cover wound bed with Durafiber AG, cover with dry gauze, ABD pad and wrap. Change every other day. Right Dorsal - Cleanse with NS apply xeroform to wound bed cover with ABD pad and wrap. Change every other day. Surgical consult pending DM2 - stable blood sugars , dc correction-dose lispro,hbaic 5.7 in 03/22 , not on home insulin or oral hypoglycemics VTE prophylaxis heparin code status - full code requiring continued inpatient hospitalization for IV antibiotics and awaiting dialysis catheter placement. Quality Stroke Does the patient have a stroke diagnosis?: No VTE Prior VTE?: No VTE Risk Level:: Medical - moderate - high VTE Device Contraindication: N/A - Device Ordered VTE Drug Contraindication: N/A - Med Ordered
== END 2024-06-04 13:10 | disposition home or self-care (01) | DRG 314 ==
LOC: HO.ED 15:30 → HO.EDOVER 15:36 → HO.IMC 05-26 00:23 → HO.S3 05-29 14:20
PROVIDERS: Hospitalist; Internal Medicine; Internal Medicine Nephrology; Radiology Diagnostic Radiology; Admitting Provider Family Medicine; Emergency Provider Internal Medicine; PCP Student in an Organized Health Care Education/Training Program; Visit Provider Hospitalist
PROC: 02HV33Z Insertion of Infusion Device into Superior Vena Cava, Percutaneous Approach (ICD-10-PCS; principal; 2024-06-03 11:30)
DX: T80.211A Bloodstream infection due to central venous catheter, initial encounter (principal); A40.1 Sepsis due to streptococcus, group B; I50.23 Acute on chronic systolic (congestive) heart failure; N18.6 End stage renal disease; I13.2 Hypertensive heart and chronic kidney disease with heart failure and with stage 5 chronic kidney disease, or end stage renal disease; L97.429 Non-pressure chronic ulcer of left heel and midfoot with unspecified severity; L97.419 Non-pressure chronic ulcer of right heel and midfoot with unspecified severity; E11.42 Type 2 diabetes mellitus with diabetic polyneuropathy; E11.22 Type 2 diabetes mellitus with diabetic chronic kidney disease; G89.29 Other chronic pain; Z76.5 Malingerer [conscious simulation]; E87.5 Hyperkalemia; E11.621 Type 2 diabetes mellitus with foot ulcer; D63.1 Anemia in chronic kidney disease; H54.8 Legal blindness, as defined in USA; N25.0 Renal osteodystrophy; E11.319 Type 2 diabetes mellitus with unspecified diabetic retinopathy without macular edema; Z99.2 Dependence on renal dialysis; Z20.822 Contact with and (suspected) exposure to COVID-19; Z91.148 Patient's other noncompliance with medication regimen for other reason; Z79.899 Other long term (current) drug therapy
CPT/HCPCS: 0241U; 36415; 36558; 36589; 71045; 74177; 76937; 80048; 80053; 82947; 83605; 85025; 85027; 87040; 87071; 87147; 87205; 90999; 93005; 93306; 99152; 99153; 99285; C1750; C1769; J0131; J0690; J0692; J0696; J0737; J0878; J1171; J1200; J1644; J2003; J2250; J2310; J2405; J3010; Q9967

== ENCOUNTER → 2024-05-25 13:57 | Outpatient (BNV) | payer OTHER, SELFPAY | PROVIDERS: Admitting Provider Family Medicine; Emergency Provider Internal Medicine; PCP Student in an Organized Health Care Education/Training Program; Visit Provider Internal Medicine | DX: I45.10 Unspecified right bundle-branch block (principal); R00.0 Tachycardia, unspecified | CPT/HCPCS: 93010 ==

== ENCOUNTER → 2024-05-25 14:04 | Outpatient (BNV) | payer OTHER, SELFPAY | PROVIDERS: Emergency Provider Internal Medicine; Visit Provider Radiology Diagnostic Radiology | DX: R11.2 Nausea with vomiting, unspecified (principal); R50.9 Fever, unspecified | CPT/HCPCS: 71045; 74177 ==

== ENCOUNTER 2024-05-25 15:30 | Outpatient (BNV) | payer OTHER, SELFPAY | END 2024-06-03 12:30 | PROVIDERS: Admitting Provider Family Medicine; Emergency Provider Internal Medicine; PCP Student in an Organized Health Care Education/Training Program; Visit Provider Radiology Diagnostic Radiology | DX: N18.9 Chronic kidney disease, unspecified (principal) | CPT/HCPCS: 36558; 77001 ==

== ENCOUNTER 2024-05-25 15:30 | Outpatient (BNV) | payer OTHER, SELFPAY | END 2024-05-30 07:00 | PROVIDERS: Admitting Provider Family Medicine; Emergency Provider Internal Medicine; PCP Student in an Organized Health Care Education/Training Program; Visit Provider Internal Medicine | DX: R78.81 Bacteremia (principal); I51.7 Cardiomegaly; I36.1 Nonrheumatic tricuspid (valve) insufficiency; I31.39 Other pericardial effusion (noninflammatory) | CPT/HCPCS: 93306 ==

== ENCOUNTER 2024-05-25 15:30 | Outpatient (BNV) | payer OTHER, SELFPAY | END 2024-05-30 11:00 | PROVIDERS: Admitting Provider Family Medicine; Emergency Provider Internal Medicine; PCP Student in an Organized Health Care Education/Training Program; Visit Provider Radiology Diagnostic Radiology | DX: N18.9 Chronic kidney disease, unspecified (principal) | CPT/HCPCS: 36589 ==

== ENCOUNTER → 2024-05-25 15:30 | Outpatient (BNV) | payer OTHER, SELFPAY | PROVIDERS: Admitting Provider Family Medicine; Emergency Provider Internal Medicine; PCP Student in an Organized Health Care Education/Training Program; Visit Provider Internal Medicine | DX: R78.81 Bacteremia (principal); R50.9 Fever, unspecified | CPT/HCPCS: 99222 ==

== ENCOUNTER → 2024-05-25 15:30 | Outpatient (BNV) | payer OTHER, SELFPAY | PROVIDERS: Admitting Provider Family Medicine; Emergency Provider Internal Medicine; Visit Provider Family Medicine | DX: A41.9 Sepsis, unspecified organism (principal) | CPT/HCPCS: 99223 ==

== ENCOUNTER 2024-06-06 22:20 | Emergency (ER) | payer OTHER, SELFPAY ==
[2024-06-06 22:28] VITALS: BP 188/90; PULSE 93; O2SAT 99
[2024-06-06 22:41] LABS: Glucose, Whole Blood 152 mg/dL (60-115)
[2024-06-06 22:48] VITALS: BP 185/105; PULSE 91; RESP 18; TEMP 36.7; O2SAT 97; BMI 22.8
--- NOTE | 2024-06-06 22:50 | ED_ITS ---
HPI - General Adult General Chief complaint: General Medical Stated complaint: central fistula bleed, dislodged, pt is blind Time Seen by Provider: 06/06/24 22:26 Source: patient Mode of arrival: ambulatory Limitations: no limitations History of Present Illness ED Provider: HPI narrative: Patient has just admitted and discharge 2 days ago been here frequently does have history of end-stage renal disease and diabetes legally blind comes here as new Shiley catheter which was placed 4 days ago she feels it is slightly loose also she had a small wound on the dorsum of the right foot which was bleeding earlier she is on Ancef 2 g post dialysis for next 6 weeks for positive blood culture with strep Related Data Home Medications ?Medication ?Instructions ?Recorded ?Confirmed albuterol sulfate 90 mcg/actuation 2 puff inhalation Q6H PRN wheezing 01/15/24 05/25/24 aerosol inhaler (Ventolin HFA) lidocaine 5 % topical patch 1 patch topical DAILY PRN Pain 01/15/24 05/25/24 nitroglycerin 0.4 mg sublingual 0.4 mg sublingual DIRECTED PRN 01/15/24 05/25/24 tablet Angina acetaminophen 325 mg tablet 650 mg PO Q4H PRN mild pain 03/11/24 05/25/24 oxycodone 5 mg tablet 5 mg PO Q8H PRN Pain 05/25/24 05/25/24 Previous Rx's ?Medication ?Instructions ?Recorded carvedilol 12.5 mg tablet 12.5 mg PO BID 90 days #180 tabs 12/16/23 hydralazine 50 mg tablet 50 mg PO TID 90 days #270 tabs 12/16/23 cefazolin 2 gram intravenous 2 g IV . and 06/03/24 solution Allergies Allergy/AdvReac Type Severity Reaction Status Date / Time morphine [MORPHINE] Allergy Intermediate Itching Verified 06/06/24 22:49 azithromycin [From Zithromax] Allergy Hives Verified 06/06/24 22:49 gabapentin Allergy Facial Verified 06/06/24 22:49 Swelling tramadol Allergy Facial Verified 06/06/24 22:49 Swelling vancomycin Allergy Anaphylaxis Verified 06/06/24 22:49 Review of Systems Review of Systems: Yes all other systems are reviewed and are negative PMFSH Past Medical History Medical History ESRD (end stage renal disease) Hypotonic neurogenic bladder Diabetic polyneuropathy ESRD (end stage renal disease) on dialysis Hypertensive emergency Non-compliance with renal dialysis Decompensated heart failure Congestive heart failure Renal failure Hypertension, uncontrolled Medical non-compliance Pericarditis Unspecified hypertension, condition or complication Metabolic acidosis Gastroparesis End stage chronic kidney disease Chronic kidney disease Anemia Chronic foot ulcer Plantar ulcer of left foot Major depressive disorder, single episode, severe Non-compliance with renal dialysis Hypertensive urgency MDD (major depressive disorder), recurrent episode MDD (major depressive disorder) Renal failure Foot ulcer CKD (chronic kidney disease) Hypertension Diabetic foot Hyperkalemia Vomiting Renal failure Hypertension Migraine Chronic pain ESRD on dialysis Non-compliance with renal dialysis Hypertension End-stage renal disease (ESRD) Diabetic foot ulcer associated with type 2 diabetes mellitus Diabetes ESRD needing dialysis Cardiomyopathy HFrEF (heart failure with reduced ejection fraction) delivery delivered Anemia in chronic kidney disease (CKD) CKD (chronic kidney disease) Headache, migraine Abnormal finding on echocardiogram Elevated troponin Chest pain Acute worsening of stage 3 chronic kidney disease Generalized edema Sepsis Cellulitis Pleural effusion CHF (congestive heart failure) (~06/07/22) Tachycardia Atypical chest pain Bone infection PAD (peripheral artery disease) Severe anemia Cellulitis and abscess of foot DM foot ulcer Osteomyelitis Asthma Depression with anxiety Diabetic retinopathy Type 2 diabetes mellitus with hyperglycemia, with long-term current use of insulin Blind right eye Diabetes Back pain Surgical History Tubal ligation status Previous section Hx laparoscopic cholecystectomy Hx of surgical procedure (~09/11/23) 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 Family History Family History Mother Coronary artery disease Myocardial infarction Stroke Diabetes mellitus Father Myocardial infarction Social History Social History Household Members: Other Household Members Other:: sister Housing: Apartment Are you a primary care professional to a significant other at home: No Do you presently have visiting nurse or other home services: No Unable to assess alcohol history related to: Unknown Alcohol intake: never Comment: pt. refusing high fall risk protocols. Patient Tobacco Use Status: Never used Tobacco e-Cigarette/Vaping Use: Never Used Second Hand Smoke Exposure: No Advance Directives Date on File: 09/04/23 service: No Current occupational status: unemployed and disabled Gender identity: Female Physical Exam ED Vital Signs: Vital Signs - 24 hr 06/06/24 22:48 Temperature 98.0 F Pulse Rate 91 Respiratory Rate 18 Blood Pressure 185/105 H Pulse Oximetry 97 Oxygen Delivery Method Room Air BMI result Body Mass Index 22.8 Appearance: Alert. Oriented X3. No acute distress. Eyes: Legally blind ENT: Pharynx normal. Oral Mucosa moist Neck: Normal inspection. Neck supple. CVS: Normal heart rate and rhythm. Pulses normal. Shiley catheter in the right superior vena cava secured no signs of infection Respiratory: No respiratory distress. Equal air entry bilateral, no wheezing/rales/rhonchi Abdomen: Soft and nontender. Bowel sounds are present, no mass palpable, no CVA tenderness Skin: Skin warm and dry. Normal skin color. Normal skin turgor. Extremities: No lower extremity edema. No calf tenderness bilateral metatarsal amputation right foot with superficial wound from the scab which was removed causing the mild bleeding Neuro: Oriented X 3. No motor deficit. Medical Decision Making Medical Decision Making [facility] Narrative: Patient with end-stage renal disease diabetes blind been here multiple times at this time patient has says her Shiley catheter was loose infected for sick your no signs of infection or looseness noticed new dressing applied also on the right foot has a superficial ulceration from the scab which was removed bacitracin ointment applied patient noticed a blood pressure 184/105 extra dose of hydralazine was given patient took her medicine at night prior to arrival Lab Data [facility] Lab Attestation statement: I reviewed the patient's lab results. Labs: Lab Results 06/06/24 Range/Units 22:37 POC Glucose 152 H (60-115) mg/dL Discharge Plan Discharge Clinical Impression: Encounter for dialysis catheter care Patient Disposition: Home, Self-Care Instructions: Hemodialysis (DC) Additional Instructions: Local care as advised follow up with your molder apprentice Prescriptions: No Action carvedilol 12.5 mg Tablet 12.5 mg PO BID 90 Days Qty: 180 0RF Protocol: Hold for SBP/HR < HOLD for SBP < : 90 HOLD for HR < : 60 hydralazine 50 mg Tablet 50 mg PO TID 90 Days Qty: 270 0RF Protocol: Hold for SBP< HOLD for SBP < : 90 acetaminophen 325 mg tablet 650 mg PO Q4H PRN (Reason: mild pain) oxycodone 5 mg tablet 5 mg PO Q8H PRN (Reason: Pain) cefazolin 2 gram recon soln 2 g IV ./ and Sun Rx Instructions: 2 g cefazolin IV Sunday and Sunday post hemodialysis, end date July 11 lidocaine 5 % adhesive patch,medicated 1 patch topical DAILY PRN (Reason: Pain) nitroglycerin 0.4 mg tablet, sublingual 0.4 mg sublingual DIRECTED PRN (Reason: Angina) albuterol sulfate [Ventolin HFA] 90 mcg/actuation HFA aerosol inhaler 2 puff inhalation Q6H PRN (Reason: wheezing) Print Language: Mongolian
--- OUTSIDE RECORDS SUMMARY | 2024-06-06 23:05 | XMS_ITS | Encounter Summary ---
Author Organization [facility] Address [address] [place] [address] Care Team Providers Care Bus Or Truck Garage Mechanic Name Role Phone Community, Pcp Primary Care Provider Chanda Thapa Primary Care Provider Mindy mercado Encounter Details Date Type Department Care Team Description 11/02/2017 Hospital Medical Records [address] [place] [id number] Hayden Troncoso MD Social History Tobacco Use Types Packs/Day Years Used Date Smoking Tobacco: Former Smokeless Tobacco: Never Alcohol Use Standard Drinks/Week Comments No 0 (1 standard drink = 0.6 oz pur e alcohol) Sex Assigned at Date Recorded Not on file documented as of this encounter Plan of Treatment Not on file documented as of this encounter Visit Diagnoses Not on filedocumented in this encounter Care Teams Bus Or Truck Garage Mechanic Relationship Specialty Start Date End Date Community, Pcp PCP - General Internal Medicine 08/22/17 01/09/18 Chanda Nugent PCP - General Internal Medicine 01/10/18 documented as of this encounter
--- OUTSIDE RECORDS SUMMARY | 2024-06-06 23:05 | XMS_ITS | Encounter Summary ---
Author Organization [facility] Address [address] [place] [address] Care Team Providers Care Trim Machine Adjuster Name Role Phone Community, Pcp Primary Care Provider Chanda Thapa Primary Care Provider Mindy mercado Encounter Details Date Type Department Care Team Description 01/07/2018 Electrical Line Mechanic Report Medical Records [address] [place] [id number] Abstract, Provider Social History Tobacco Use Types Packs/Day Years [...] on filedocumented in this encounter Care Teams Trim Machine Adjuster Relationship Specialty Start Date End Date Community, Pcp PCP - General Internal Medicine 08/22/17 01/09/18 Chanda Nugent PCP - General Internal Medicine 01/10/18 documented as of this encounter
--- OUTSIDE RECORDS SUMMARY | 2024-06-06 23:05 | XMS_ITS | Encounter Summary ---
Author Organization [facility] Address [address] [place] [address] Care Team Providers Care Cafeteria Associate Name Role Phone Community, Pcp Primary Care Provider Chanda Thapa Primary Care Provider Mindy mercado Encounter Details Date Type Department Care Team Description 11/02/2017 Hospital Medical Records [address] [place] [id number] Hayden Troncoso MD Social History Tobacco Use [...] on filedocumented in this encounter Care Teams Cafeteria Associate Relationship Specialty Start Date End Date Community, Pcp PCP - General Internal Medicine 08/22/17 01/09/18 Chanda Nugent PCP - General Internal Medicine 01/10/18 documented as of this encounter
--- OUTSIDE RECORDS SUMMARY | 2024-06-06 23:05 | XMS_ITS | Encounter Summary ---
Author Organization [facility] Address [address] [place] [address] Care Team Providers Care Tire Room Supervisor Name Role Phone Chanda Nugent Primary Care Provider Unavailabl e Reason for Visit * Reason Onset Date Comments Homecare 04/26/2018 Encounter Details Date Type Department Care Team Description 04/26/2018 Telephone Vascular Surgery - [place] [address] [place] [address] Hayden Troncoso MD Homecare Social History Tobacco Use Types Packs/Day Years Used Date Smoking Tobacco: Former Smokeless Tobacco: Never Alcohol Use Standard Drinks/Week Comments No 0 (1 standard drink = 0.6 oz pur e alcohol) Sex Assigned at Date Recorded Not on file documented as of this encounter Miscellaneous Notes * Telephone Encounter - Shonna Taylor - 04/26/2018 2:53 PM EST Marlyn, Clinical Detective Chief called to inform that patient couldn't be seen, but will be seen tomorrow. documented in this encounter Plan of Treatment Not on file documented as of this encounter Visit Diagnoses Not on filedocumented in this encounter Care Teams Tire Room Supervisor Relationship Specialty Start Date End Date Chanda Nugent PCP - General Internal Medicine 01/10/18 documented as of this encounter
--- OUTSIDE RECORDS SUMMARY | 2024-06-06 23:05 | XMS_ITS | Encounter Summary ---
Author Organization [facility] Address [address] [place] [address] Care Team Providers Care Machine Bender Name Role Phone Ed Nash MD Primary Care Provider Un available Community, Pcp Primary Care Provider Unavailabl e Community, Pcp Primary Care Provider Unavailabl e NugentChanda Primary Care Provider Unavailabl e Reason for Visit * Reason Onset Date Comments Provider Call Back 03/22/2016 Encounter Details Date Type Department Care Team Description 03/22/2016 Telephone General Surgery [address] [place] [address] Ksenia Villavicencio MD [address] [place] [address] Provider Call Back Social History Tobacco Use Types Packs/Day Years Used Date Smoking Tobacco: Former Alcohol Use Standard Drinks/Week Comments No 0 (1 standard drink = 0.6 oz pur e alcohol) Sex Assigned at Date Recorded Not on file documented as of this encounter Miscellaneous Notes * Telephone Encounter - Doreen Arana M.A. - 03/22/2016 9:51 AM EST Called patient informed her she had an appt yesterday ,she states not aware of appt, stilling feeling pain when she coughs ,stands , sitting in her belly button taking 2 percocet every 6 hrs ,she states taking tylenol and motrin together it does not work appy given . * Telephone Encounter - Cherry Eddy - 03/22/2016 9:42 AM EST Patient had surgery by Dr Villavicencio Post op Lap Airam 1/19/17. Patient states she is having a lot of pain where the incision is. Mostly hurst by the belly button. Having [place] and chills. Red and warm to touch where the incision is. Please review and advise. documented in this encounter Plan of Treatment Not on file documented as of this encounter Visit Diagnoses Not on filedocumented in this encounter Care Teams Machine Bender Relationship Specialty Start Date End Date Ed Nash MD PCP - General Internal Medicine 11/11/15 Community, Pcp PCP - General Internal Medicine 07/27/16 08/21/17 Community, Pcp PCP - General Internal Medicine 08/22/17 01/09/18 Chanda Nugent PCP - General Internal Medicine 01/10/18 documented as of this encounter
--- OUTSIDE RECORDS SUMMARY | 2024-06-06 23:05 | XMS_ITS | Encounter Summary ---
Author Organization [facility] Address [address] [place] [address] Care Team Providers Care Auto Body Service Mechanic Name Role Phone Ed Nash MD Primary Care Provider Un available Community, Pcp Primary Care Provider Unavailabl e Community, Pcp Primary Care Provider Unavailabl e Chanda Nugent Primary Care Provider Unavailabl e Encounter Details Date Type Department Care Team Description 07/05/2016 Hospital Medical Records [address] [place] [address] [place] [address] [place] [id number] Social History Tobacco Use Types Packs/Day Years [...] on filedocumented in this encounter Care Teams Auto Body Service Mechanic Relationship Specialty Start Date End Date Ed Nash MD PCP - General Internal Medicine 11/11/15 Community, Pcp PCP - General Internal Medicine 07/27/16 08/21/17 Community, Pcp PCP - General Internal Medicine 08/22/17 01/09/18 Chanda Nugent PCP - General Internal Medicine 01/10/18 documented as of this encounter
--- OUTSIDE RECORDS SUMMARY | 2024-06-06 23:05 | XMS_ITS | Clinical Summary ---
Author Organization [facility] Address [address] [address] Phone Care Team Providers Care Craniologist Name Role Phone Katlyn Manzanofer Primary Care Provider Unava ilable Allergies Active Allergy Reactions Criticality Noted Date Comments Gabapentin Swelling,Other (see comments) High 04/19/2022 Morphine Swelling,Other (see comments) 05/14/2018 Penicillins Other (see comments) Medium 01/06/2022 Piperacillin-Tazobacta m In Dex High 06/13/2021 Other reaction(s): angioedema Tazobactam Hives 05/04/2021 Tramadol Other (see comments),Shortness of breath High 04/19/2022 Vancomycin Other (see comments) 06/13/2021 Tolerates again 05/21Per chart: pt tolerated vanco on 05/18/21 Medications acetaminophen (TYLENOL) 325 MG tablet Take 975 mg by mouth 2 Active amLODIPine (NORVASC) 10 MG tablet Take 10 mg by mouth 2 Active cefpodoxime (VANTIN) 200 MG tablet TAKE 1 TABLET BY MOUTH EVERY 12 HOURS FOR 7 DAYS 2 Active atorvastatin (LIPITOR) 40 MG tablet TAKE 1 TABLET BY MOUTH EVERY DAY AT BEDTIME. (FOLLOW UP WITH PCP FOR FURTHER REFILLS) 2 Active cyclobenzaprin e (FLEXERIL) 10 MG tablet Take 10 mg by mouth 2 Active doxycycline (VIBRAMYCIN) 100 MG capsule TAKE 1 CAPSULE BY MOUTH EVERY 12 HOURS FOR 7 DAYS MAY TAKE WITH FOOD 2 Active DULoxetine (CYMBALTA) [address] capsule TAKE 1 CAPSULE BY ORAL ROUTE EVERY DAY FOR 1 WEEK THEN INCREASE TO TWICE A DAY 2 Active Jardiance 10 MG tablet TAKE 1 TABLET BY MOUTH DAILY IN THE MORNING. 90 DAY SUPPLY. 2 Active ferrous sulfate 325 (65 Fe) MG EC tablet Take 325 mg by mouth 2 Active furosemide (LASIX) 20 MG tablet TAKE 1 TABLET BY MOUTH EVERY DAY. (FOLLOW UP WITH PRIMARY CARE DOCTOR FOR FURTHER REFILLS). 2 Active HYDROmorphone (DILAUDID) 2 MG tablet TAKE 1 TABLET BY MOUTH EVERY 6 HOURS NEEDED FOR SEVERE PAIN 2 Active NovoLOG FLEXPEN 100 UNIT/ML injection INJECT 11-21 UNITS SUBCUTANEOUSLY 3 TIMES DAILY BEFORE MEALS. 90-DAY SUPPLY. 2 Active Levemir FlexTouch 100 UNIT/ML injection 2 Active lidocaine (LIDODERM) 5 % patch APPLY 1 PATCH TOPICALLY DAILY NEEDED FOR MILD PAIN, REMOVE AFTER 12 HOURS 2 Active metoprolol tartrate 25 MG tablet TAKE 1 TABLET BY MOUTH TWO TIMES A DAY. (FOLLOW UP WITH PRIMARY CARE DOCTOR FOR FURTHER REFILLS) 2 Active nitroglycerin (NITROSTAT) 0.[address] 0.4 mg under the tongue 2 Active oxyCODONE (ROXICODONE) 5 MG immediate release tablet Take 5 mg by mouth every 6 (six) hours if needed 2 Active Aspirin Low Dose 81 MG EC tablet 3 Active carvedilol (COREG) 12.5 MG tablet 3 Active clopidogrel (PLAVIX) 75 MG tablet 3 Active Active Problems Problem Noted Date Diagnosed Date Migraine 02/23/2022 Overview (02/23/2022): Managed by PCP with Tylenol Heart failure with normal ejection fraction 01/27 growth restriction 02/23/2022 Chronic kidney disease stage 4 due to type 2 diabetes mellitus 02/23/2022 Chronic kidney disease stage 3 02/23/2022 Cardiac disease in 02/23/2022 Hypertensive urgency 01/08/2022 Acute nontraumatic kidney injury 01/08/2022 Decompensated chronic heart failure 01/06/2022 Asthma 06/13/2021 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 Blood group A Rh(D) positive 06/13/2021 Chest pain 06/13/2021 fetus in utero 06/13/2021 Patient care statuses 06/13/2021 Premature delivery 06/13/2021 Hypertensive disorder 04/12/2021 Benign essential hypertension 01/21/2020 Uncontrolled type 2 diabetes mellitus 01/21/2020 Overview (11/27/2023): Replacing diagnoses that were inactivated after the 11/27/23 Regulatory Import Resolved Problems Problem Noted Date Diagnosed Date Resolved Date History of amputation of foot 10/25/2018 04/13/2021 Overview (04/12/2021): Right first and fifth, osteomyelitis Disorder of eye due to type 2 diabetes mellitus 11/24/2015 04/13/2021 Obesity 11/24/2015 04/13/2021 Type 2 diabetes mellitus 11/24/2015 Anxiety 11/03/2015 04/13/2021 Depressive disorder 11/03/2015 04/13/19 22 Encounters Date Type Department Care Team Description 05/22/2024 Treatment [facility] [address] [phone] Ed Carver MD End stage renal disease; Dependence on renal dialysis 05/13/2024 Treatment [facility] [address] [phone] Ed Carver MD End stage renal disease; Dependence on renal dialysis 05/08/2024 Treatment [facility] [address] [phone] Ed Carver MD End stage renal disease; Dependence on renal dialysis 05/03/2024 Treatment [facility] [address] [phone] Ed Carver MD End stage renal disease; Dependence on renal dialysis 04/22/2024 Treatment [facility] [address] [address] Ed Carver MD 04/19/2024 Treatment [facility] [address] [address] Ed Carver MD 04/12/2024 Treatment [facility] [address] [address] Ed Carver MD 04/01/2024 Treatment [facility] [address] [address] Ed Carver MD 03/27/2024 Treatment [facility] [address] [address] Ed Carver MD 03/25/2024 Orders Only [facility] [address] [address] Ed Carver MD 03/25/2024 Treatment [facility] [address] [address] Ed Carver MD 03/15/2024 Treatment [facility] [address] [address] Ed Carver MD from Last 3 Months Immunizations Immunization Administration Dates Next Due DTP 08/08/1992, 2,07/05/1989,1988, 9 Hep B, Unspecified 10/21/2002,04/18/2002, 003 IPV 08/08/1992, 2,07/05/1989,1988, 9 Influenza, Unspecified 09/30/2016 MMR 07/15/1995,03/25/1989 Moderna SARS-COV-2 07/16/2020,06/18/2020 Td, Unspecified 03/13/2002 Tdap 06/24/2012 Family History Medical History Relation Comments Diabetes Father Diabetes Mother Diabetes Sibling Relation Status Comments Father Mother Sibling Social History Tobacco Use Types Packs/Day Years Used Date Smoking Tobacco: Never Assessed Comments Unknown Sex and Gender Information Value Date Recorded Sex Assigned at Not on file Legal Sex Female 4:53 PM EST Gender Identity Not on file Sexual Orientation Not on file Plan of Treatment Health Maintenance Due Date Last Done Comments Pneumococcal Vaccine: Peds ( 0 to 5 Years) and At-Risk Patients (6 to 49 Years) (1 of 2 - PCV) 1994 Hepatitis B Vaccine (1 of 1 - Risk Dialysis 4-dose series) 10/22/2003 10/21/2002, 04/18/2002, 03/13/2002 Diabetes: Ophthalmology Exam 02/21/2022 Diabetes: Pedal Pulse Checked 02/21/2022 Diabetes: Sensory Foot Exam 02/21/2022 Diabetes: Visual Foot Exam 02/21/2022 Diabetes: Hemoglobin A1C 06/05/2024 025, 03/07/2024, 03/06/2024, Additional history exists Influenza Vaccine (Season Ended) 2024 10/01/19 17 Procedures Procedure Name Priority Date/Time Associated Diagnosis Comments HEPATITIS B SURFACE ANTIGEN W/REFL CONFIRM Routine 06/05/2024 3:00 AM EDT TRANSFERRIN SATURATION Routine 3:00 AM EDT MAGNESIUM Routine 06/05/2024 3:00 AM EDT PROTEIN, TOTAL, SERUM Routine 06/05/2024 3:00 AM EDT LIPID PANEL Routine 06/05/2024 3:00 AM EDT GLUCOSE, RANDOM Routine 06/05/2024 3:00 AM EDT ELECTROLYTE PANEL Routine 06/05/2024 3:0 0 AM EDT LACTATE DEHYDROGENASE Routine 06/05/2024 3:00 AM EDT AST Routine 06/05/2024 3:00 AM EDT CREATININE, SERUM Routine 06/05/2024 3:0 0 AM EDT LIH (HC) Routine 06/05/2024 3:00 AM EDT ALT Routine 06/05/2024 3:00 AM EDT CALCIUM PHOSPHORUS PRODUCT, ADJUSTED (HC) Routine 06/05/2024 3:00 AM EDT BILIRUBIN, TOTAL Routine 06/05/2024 3:00 AM EDT ALKALINE PHOSPHATASE Routine 06/05/2024 3:00 AM EDT HEMOGLOBIN A1C Routine 06/05/2024 3:00 AM EDT FERRITIN Routine 06/05/2024 3:00 AM EDT PTH, INTACT Routine 06/05/2024 3:00 AM EDT CBC AND DIFFERENTIAL Routine 06/05/2024 3:00 AM EDT KT/V NATURAL LOG, URR (HC) Routine 06/05/2024 3:00 AM EDT HEMOGLOBIN Routine 05/15/2024 3:00 AM EDT PHOSPHATE ( PHOSPHORUS) Routine 05/13/2024 3:00 AM EDT LIH (HC) Routine 05/13/2024 3:00 AM EDT HEPATITIS B SURFACE ANTIGEN W/REFL CONFIRM Routine 05/01/2024 3:00 AM EST TRANSFERRIN SATURATION Routine 3:00 AM EST PROTEIN, TOTAL, SERUM Routine 05/01/2024 3:00 AM EST ELECTROLYTE PANEL Routine 05/01/2024 3:0 0 AM EST MAGNESIUM Routine 05/01/2024 3:00 AM EST LACTATE DEHYDROGENASE Routine 05/01/2024 3:00 AM EST LIH (HC) Routine 05/01/2024 3:00 AM EST GLUCOSE, RANDOM Routine 05/01/2024 3:00 AM EST CREATININE, SERUM Routine 05/01/2024 3:0 0 AM EST BILIRUBIN, TOTAL Routine 05/01/2024 3:00 AM EST ALKALINE PHOSPHATASE Routine 05/01/2024 3:00 AM EST AST Routine 05/01/2024 3:00 AM EST CALCIUM PHOSPHORUS PRODUCT, ADJUSTED (HC) Routine 05/01/2024 3:00 AM EST ALT Routine 05/01/2024 3:00 AM EST FERRITIN Routine 05/01/2024 3:00 AM EST PTH, INTACT Routine 05/01/2024 3:00 AM EST KT/V NATURAL LOG, URR (HC) Routine 05/01/2024 3:00 AM EST CBC AND DIFFERENTIAL Routine 05/01/2024 3:00 AM EST HEMOGLOBIN Routine 04/19/2024 3:00 AM EST COLLECTION DATE (HC) Routine 04/19/2024 3:00 AM EST LIH () Routine 04/17/2024 3:00 AM EST PHOSPHATE ( PHOSPHORUS) Routine 04/17/2024 3:00 AM EST HEMOGLOBIN Routine 04/17/2024 3:00 AM EST LIH () Routine 04/10/2024 3:00 AM EST KT/V NATURAL LOG, URR (HC) Routine 04/10/2024 3:00 AM EST HEPATITIS B SURFACE ANTIGEN W/REFL CONFIRM Routine 04/05/2024 3:00 AM EST TRANSFERRIN SATURATION Routine 3:00 AM EST PROTEIN, TOTAL, SERUM Routine 04/05/2024 3:00 AM EST ELECTROLYTE PANEL Routine 04/05/2024 3:0 0 AM EST MAGNESIUM Routine 04/05/2024 3:00 AM EST LIH () Routine 04/05/2024 3:00 AM EST LACTATE DEHYDROGENASE Routine 04/05/2024 3:00 AM EST GLUCOSE, RANDOM Routine 04/05/2024 3:00 AM EST CREATININE, SERUM Routine 04/05/2024 3:0 0 AM EST BILIRUBIN, TOTAL Routine 04/05/2024 3:00 AM EST ALT Routine 04/05/2024 3:00 AM EST AST Routine 04/05/2024 3:00 AM EST ALKALINE PHOSPHATASE Routine 04/05/2024 3:00 AM EST CALCIUM PHOSPHORUS PRODUCT, ADJUSTED (HC) Routine 04/05/2024 3:00 AM EST FERRITIN Routine 04/05/2024 3:00 AM EST POORLY SPUN TUBE (HC) Routine 04/05/2024 3:00 AM EST KT/V NATURAL LOG, URR (HC) Routine 04/05/2024 3:00 AM EST COLLECTION DATE () Routine 04/05/2024 3:00 AM EST CBC AND DIFFERENTIAL Routine 04/05/2024 3:00 AM EST LIH () Routine 03/27/2024 3:00 AM EST KT/V NATURAL LOG, URR () Routine 03/27/2024 3:00 AM EST LIH () Routine 03/25/2024 3:00 AM EST PHOSPHATE ( PHOSPHORUS) Routine 03/25/2024 3:00 AM EST HEMOGLOBIN Routine 03/22/2024 3:00 AM EST COLLECTION DATE () Routine 03/22/2024 3:00 AM EST LIH () Routine 03/20/2024 3:00 AM EST KT/V NATURAL LOG, URR () Routine 03/20/2024 3:00 AM EST LIH () Routine 03/15/2024 3:00 AM EST COLLECTION DATE () Routine 03/15/2024 3:00 AM EST KT/V NATURAL LOG, URR (HC) Routine 03/15/2024 3:00 AM EST PHOSPHATE ( PHOSPHORUS) Routine 03/13/2024 3:00 AM EST LIH (HC) Routine 03/13/2024 3:00 AM EST CALCIUM, ADJUSTED W ALBUMIN Routine 03/13/2024 3:00 AM EST KT/V NATURAL LOG, URR (HC) Routine 03/13/2024 3:00 AM EST from Last 3 Months Results * LIH (06/05/2024 3:00 AM EDT) Only the most recent of11 resultswithin the time period is included. Lipemia Normal Normal [facility] Icterus Normal Normal [facility] Hemolysis Normal Normal [facility] 06/05/2024 3:00 AM EDT 06/06/2024 1:01 PM EDT us Ed Carver MD LAB HISTORICA [id number] RESULTS Final Result [facility] [address] [place] [address] * (ABNORMAL) Kt/V Natural Log, URR (06/05/2024 3:00 AM EDT) Only the most recent of8 resultswithin the time period is included. Treatment Time 183 min [facility] Pre-Weight, lb 82.4 kg [facility] Post-Weight, lb 79.9 kg [facility] Ultrafiltration Rate 10 <=13 mL/kg/hr [facility] Comment: Recommend achieving Ultrafiltration Rate (UFR) <=10 mL/kg/hr References: Estelle GARCIA et al. Kidney Int. 2010; 79(2):250-257 BUN Post Dialysis 22 7 - 25 mg/dL [facility] BUN 81(H) 7 - 25 mg/dL [facility] UREA REDUCTION RATIO (%) 73 >=65 % [facility] Kt/V Natural Log 1.49 >=1.2 [facility] 06/05/2024 3:00 AM EDT 06/06/2024 12:58 PM EDT us Ed Carver MD LAB HISTORICA [id number] RESULTS Final Result Performing Organization Address [facility]/ZIP Co de Phone Number [facility]PS [facility] [address] [place] [address] * (ABNORMAL) Calcium Phosphorus Product, Adjusted (06/05/2024 3:00 AM EDT) Only the most recent of3 resultswithin the time period is included. Albumin 4.0 3.6 - 5.4 g/dL [facility] Calcium 8.4(L) 8.6 - 10.3 mg/dL [facility] Phosphorus, Serum 9.5(H) 2.5 - 5.0 mg/dL [facility] Ca*PO4 79.8(A) <55.0 mg2/dL2 [facility] Calcium, Adjusted Total 8.4(L) 8.6 - 10.3 mg/dL [facility] CA*PO4 CORRCTD 79.8(A) <55.0 mg2/dL2 [facility] 06/05/2024 3:00 AM EDT 06/06/2024 1:01 PM EDT us Ed Carver MD LAB HISTORICA [id number] RESULTS Final Result Performing Organization Address [facility] Co de Phone Number [facility]PS [facility] [address] [place] [address] * Hepatitis B Surface Ag w/Reflex Confirmation (06/05/2024 3:00 AM EDT) Only the most recent of3 resultswithin the time period is included. Hep B Surface Antigen Negative Negative [facility] 06/05/2024 3:00 AM EDT 06/06/2024 1:01 PM EDT us Ed Carver MD LAB BLOOD ORDERABLES Final Result Performing Organization Address [facility] Co de Phone Number [facility]PS [facility] [address] [place] [address] * (ABNORMAL) TSAT (06/05/2024 3:00 AM EDT) Only the most recent of3 resultswithin the time period is included. [facility] Iron 52 50 - 170 ug/dL [facility] Transferrin 198(L) 250 - 380 mg/dL [facility] TIBC 277 211 - 406 ug/dL [facility] Iron Saturation (TSat) 19(L) 22 - 52 % [facility] 06/05/2024 3:00 AM EDT 06/06/2024 1:01 PM EDT Ed Carver MD LAB BLOOD ORDERABLES Final Result Performing Organization Address [facility] de Phone Number [facility]PS [facility] [address] [place] [address] * (ABNORMAL) CBC and Differential (06/05/2024 3:00 AM EDT) Only the most recent of3 resultswithin the time period is included. [facility] DIFFERENTIAL MANUAL, 2 Not Indicated [facility] White Blood Cells 5.4 4.0 - 10.0 K/uL [facility] RBC 3.84(L) 3.93 - 5.22 M/uL [facility] Hgb 10.6(L) 11.2 - 15.7 g/dL [facility] Hemoglobin x 3 31.8(L) 33.6 - 47.1 g/dL [facility] Hematocrit 33.8(L) 34.1 - 44.9 % [facility] MCV 88.0 79.4 - 94.8 fL [facility] MCH 27.6 25.6 - 32.2 pg [facility] MCHC 31.4(L) 32.2 - 35.5 g/dL [facility] Platelets 144(L) 182 - 369 K/uL [facility] RDW 15.2(H) 11.7 - 14.4 % [facility] Neutrophils Relative 67.6 34.0 - 71.1 % [facility] Lymphocytes Relative 13.3(L) 19.3 - 51.7 % [facility] Monocytes 14.3(H) 4.7 - 12.5 % [facility] Eosinophils Relative 3.7 0.7 - 5.8 % [facility] Basophils Relative 0.7 0.1 - 1.2 % [facility] Immature Granulocytes 0.4 0.0 - 1.0 % [facility] 06/05/2024 3:00 AM EDT 06/06/2024 12:58 PM EDT Ed Carver MD LAB BLOOD ORDERABLES Final Result Performing Organization Address [facility] Co de Phone Number [facility] [address] [place] [address] * (ABNORMAL) ALT (06/05/2024 3:00 AM EDT) Only the most recent of3 resultswithin the time period is included. ALT (SGPT) <7(L) 10 - 49 U/L [facility] 06/05/2024 3:00 AM EDT 06/06/2024 1:01 PM EDT Ed Carver MD LAB BLOOD ORDERABLES Final Result Performing Organization Address [facility] de Phone Number [facility] [address] [place] [address] * AST (06/05/2024 3:00 AM EDT) Only the most recent of3 resultswithin the time period is included. AST (SGOT) 22 <34 U/L [facility] 06/05/2024 3:00 AM EDT 06/06/2024 1:01 PM EDT us Ed Carver MD LAB BLOOD ORDERABLES Final Result Performing Organization Address [facility] de Phone Number [facility] [address] [place] [address] * Protein, total (06/05/2024 3:00 AM EDT) Only the most recent of3 resultswithin the time period is included. Total Protein 7.7 6.4 - 8.9 g/dL [facility] 06/05/2024 3:00 AM EDT 06/06/2024 1:01 PM EDT Ed Carver MD LAB BLOOD ORDERABLES Final Result Performing Organization Address [facility] Co de Phone Number [facility] [address] [place] [address] * (ABNORMAL) Alkaline phosphatase (06/05/2024 3:00 AM EDT) Only the most recent of3 resultswithin the time period is included. Pathologist [facility] Alkaline Phosphatase 235(H) 46 - 116 U/L [facility] 06/05/2024 3:00 AM EDT 06/06/2024 1:01 PM EDT Ed Carver MD LAB BLOOD ORDERABLES Final Result Performing Organization Address [facility] de Phone Number [facility] [address] [place] [address] * PTH, Intact (06/05/2024 3:00 AM EDT) Only the most recent of2 resultswithin the time period is included. Pathologist [facility] PTH, Intact 390 160 - 721 pg/mL [facility] Comment: Suggested (KDIGO) ESRD maintenance range is two to nine times the upper normal limit (80.1 pg/mL) for the laboratory. 06/05/2024 3:00 AM EDT 06/06/2024 1:01 PM EDT Ed Carver MD LAB BLOOD ORDERABLES Final Result Performing Organization Address [facility] Co de Phone Number [facility] [address] [place] [address] * Magnesium (06/05/2024 3:00 AM EDT) Only the most recent of3 resultswithin the time period is included. Magnesium 2.6 1.9 - 2.7 mg/dL [facility] 06/05/2024 3:00 AM EDT 06/06/2024 1:01 PM EDT Ed Carver MD LAB BLOOD ORDERABLES Final Result Performing Organization Address [facility] de Phone Number [facility] [address] [place] [address] * Lactate dehydrogenase (06/05/2024 3:00 AM EDT) Only the most recent of3 resultswithin the time period is included. Pathologist [facility] LDH 232 120 - 246 U/L [facility] 06/05/2024 3:00 AM EDT 06/06/2024 1:01 PM EDT Ed Carver MD LAB BLOOD ORDERABLES Final Result Performing Organization Address [facility] de Phone Number [facility] [address] [place] [address] * (ABNORMAL) Hemoglobin A1c (06/05/2024 3:00 AM EDT) Pathologist [facility] Hemoglobin A1C 5.9(H) <5.7 % [facility] Comment: Methodology: Enzymatic HbA1c (NGSP %) ?Suggested Diagnosis >6.4% ? Diabetic 5.7-6.4% ?Pre-Diabetic <5.7% ? Non-Diabetic Diabetic Glucose Control Evaluation: Therapeutic action suggested at >8.0% ADA recommends a glycemic goal of <7.0% 06/05/2024 3:00 AM EDT 06/06/2024 12:58 PM EDT Ed Carver MD LAB BLOOD ORDERABLES Final Result Performing Organization Address [facility] de Phone Number [facility] [address] [place] [address] * (ABNORMAL) Glucose, random (06/05/2024 3:00 AM EDT) Only the most recent of3 resultswithin the time period is included. Glucose 142(H) 74 - 109 mg/dL [facility] 06/05/2024 3:00 AM EDT 06/06/2024 1:01 PM EDT Ed Carver MD LAB BLOOD ORDERABLES Final Result Performing Organization Address [facility]/ZIP Co de Phone Number [facility] [address] [place] [address] * Ferritin (06/05/2024 3:00 AM EDT) Only the most recent of3 resultswithin the time period is included. Ferritin 134 10 - 291 ng/mL [facility] 06/05/2024 3:00 AM EDT 06/06/2024 1:01 PM EDT Ed Carver MD LAB BLOOD ORDERABLES Final Result Performing Organization Address [facility] Co de Phone Number [facility] [address] [place] [address] * (ABNORMAL) Creatinine, serum (06/05/2024 3:00 AM EDT) Only the most recent of3 resultswithin the time period is included. Creatinine 10.61(H) 0.55 - 1.02 mg/dL [facility] 06/05/2024 3:00 AM EDT 06/06/2024 1:01 PM EDT us Ed Carver MD LAB BLOOD ORDERABLES Final Result Performing Organization Address [facility] Co de Phone Number [facility] [address] [place] [address] * (ABNORMAL) Bilirubin, total (06/05/2024 3:00 AM EDT) Only the most recent of3 resultswithin the time period is included. Total Bilirubin 0.2(L) 0.3 - 1.2 mg/dL [facility] 06/05/2024 3:00 AM EDT 06/06/2024 1:01 PM EDT Ed Carver MD LAB BLOOD ORDERABLES Final Result [facility] [address] [place] [address] * (ABNORMAL) Lipid panel (06/05/2024 3:00 AM EDT) Cholesterol 140 <200 mg/dL [facility] Comment: Optimal: ?<200 Borderline: ? 200-239 High Risk: ?>239 Triglycerides 62 <150 mg/dL [facility] Comment: Optimal: ?<150 Borderline High: ??150-199 High: ? 200-499 Very High: ?>499 HDL 38(A) >59 mg/dL [facility] Comment: Optimal: >59 High Risk: <40 LDL-Calc 90 <100 mg/dL [facility] Comment: Optimal: ?<100 Above Optimal: ?100-129 Borderline High: ??130-159 High: ? 160-189 Very High: ?>189 VLDL Cholesterol Memo 12 <30 mg/dL [facility] Comment: Optimal: ?<30 Borderline High: ??30-39 High: ? 40-99 Very High: ?>99 Chol/HDL Ratio 3.7(A) <3.3 [facility] Comment: Optimal: ?<3.3 High Risk: ?>6.2 06/05/2024 3:00 AM EDT 06/06/2024 1:01 PM EDT Ed Carver MD LAB BLOOD ORDERABLES Final Result Performing Organization Address [facility] Co de Phone Number [facility] [address] [place] [address] * (ABNORMAL) Electrolyte panel (06/05/2024 3:00 AM EDT) Only the most recent of3 resultswithin the time period is included. Sodium 130(L) 136 - 145 mEq/L [facility] Potassium 5.4(H) 3.4 - 5.0 mEq/L [facility] Chloride 98 98 - 107 mEq/L [facility] Bicarbonate (CO2) 19(L) 21 - 31 mEq/L [facility] Anion Gap 13 3 - 14 mEq/L [facility] 06/05/2024 3:00 AM EDT 06/06/2024 1:01 PM EDT us Ed Carver MD LAB BLOOD ORDERABLES Final Result Performing Organization Address [facility] Co de Phone Number [facility] [address] [place] [address] * (ABNORMAL) Hemoglobin (05/15/2024 3:00 AM EDT) Only the most recent of4 resultswithin the time period is included. Hgb 10.2(L) 11.2 - 15.7 g/dL [facility] Hemoglobin x 3 30.6(L) 33.6 - 47.1 g/dL [facility] 05/15/2024 3:00 AM EDT 05/16/2024 12:37 PM EDT Ed Carver MD LAB BLOOD ORDERABLES Final Result Performing Organization Address [facility] Co de Phone Number [facility] [address] [place] [address] * (ABNORMAL) Phosphorus (05/13/2024 3:00 AM EDT) Only the most recent of4 resultswithin the time period is included. Phosphorus, Serum 11.5(H) 2.5 - 5.0 mg/dL [facility] 05/13/2024 3:00 AM EDT 05/14/2024 12:27 PM EDT Ed Carver MD LAB BLOOD ORDERABLES Final Result Performing Organization Address [facility] Co de Phone Number [facility] [address] [place] [address] * Collection Date (04/19/2024 3:00 AM EST) Only the most recent of4 resultswithin the time period is included. Pathologist [facility] Collection Date See Comment [facility] Comment: Patient sample received may exceed specimen stability, based on the collection date electronically provided. ??When reviewing patient results, verify collection information and consider specimen stability before acting on any critical or panic results. 04/19/2024 3:00 AM EST Ed Carver MD LAB HISTORICA [id number] RESULTS Final Result Performing Organization Address [facility] de Phone Number [facility] [address] [place] [address] * Poorly Spun Tube (04/05/2024 3:00 AM EST) [facility] Poorly Spun TUBE Post Gold/White [facility] Comment:Received poorly cent rifuged specimen. Unable to perform testing. 04/05/2024 3:00 AM EST Ed Carver MD LAB HISTORICA [id number] RESULTS Final Result Performing Organization Address [facility] de Phone Number [facility] [address] [place] [address] * (ABNORMAL) Calcium, Adjusted w Albumin (03/13/2024 3:00 AM EST) Pathologist [facility] Calcium 8.0(L) 8.6 - 10.3 mg/dL [facility] Albumin 3.5(L) 3.6 - 5.4 g/dL [facility] Calcium, Adjusted Total 8.4(L) 8.6 - 10.3 mg/dL [facility] 03/13/2024 3:00 AM EST 03/14/2024 12:48 PM EST Ed Carver MD LAB BLOOD ORDERABLES Final Result [facility] [address] [place] [address] from Last 3 Months Insurance [employer] [employer] ([id number]) [facility] ([id number]) [facility] MCR ([id number]) JOVON SOLOMON [id number] Care Teams Craniologist Relationship Specialty Start Date End Date Alyssa Manzano DO [address] [facility] [place] [address] PCP - General Family Medicine 03/02/21
--- OUTSIDE RECORDS SUMMARY | 2024-06-06 23:05 | XMS_ITS | Clinical Summary ---
[facility] Address [address] [place] [address] Care Team Providers Care Pot Puncher Name Role Phone Betty Nugent MD Primary Care Provider [phone] Surgical History Surgery Date Site/Laterality Comments SECTION PROCEDURE: HISTORICAL ; COMMENT: x2 CHOLECYSTECTOMY 03/16/16 PROCEDURE: HISTORICAL CHOLECYSTECTOMY FOOT SURGERY PROCEDURE: HISTORICAL FOOT SURGERY; COMMENT: first and fifth right toe amputation Medical History Medical History Date Comments DM type 2, uncontrolled, wit h neuropathy 11/24/2015 DX:DM type 2, uncontrolled, with neuropathy DM (diabetes mellitus) type II uncontrolled with eye manifestation 11/24/2015 DX:DM (diabetes me llitus) type II uncontrolled with eye manifestation Obesity 11/24/2015 DX:Obesity Diabetic retinopathy (CMS/HC C V24, CMS/HCC V28) 11/24/2015 DX:Diabetic retinopathy (HCC ) Nonhealing ulcer of left low er extremity (CMS/HCC V24, CMS/HCC V28) DX:Nonhealing ulc er of left lower extremity (HCC); COMMENT: FOOT Constipation DX:Constipation Depression DX:Depression Osteomyelitis of foot (CMS/H CC V24, CMS/HCC V28) DX:Osteomyelitis of foot (HC C) Toe amputation status 10/25/2018 DX:Toe amp utation status; COMMENT: Right first and fifth, osteomyelitis Family History Medical History Relation Name Comments Diabetes Father Diabetes Mother Diabetes Other Relation Name Status Comments Father Alive dm, anxiety, ar thritis Mother htn, stroke, dm , heart problem Other Social History Tobacco Use Types Packs/Day Years Used Date Smoking Tobacco: Former Smokeless Tobacco: Never Alcohol Use Standard Drinks/Week Comments No 0 (1 standard drink = 0.6 oz pur e alcohol) Comments Unknown Sex and Gender Information Value Date Recorded Sex Assigned at Not on file Legal Sex Female 4:56 AM EST Gender Identity Not on file Sexual Orientation Not on file Obstetrics History Plan of Treatment Health Maintenance Due Date Last Done Comments Hepatitis B Vaccines (1 of 3 - 19+ 3-dose series) 07/28/2007 Cervical Cancer Screening: P ap Smear 2009 DTaP,Tdap,and Td Vaccines (2 - Td or Tdap) 06/24/2022 06/24/2012 COVID-19 Vaccine (1 - 2023-2 5 season) 2023 Influenza Vaccine (Season Ended) 2024 HIB Vaccines Aged Out No longer eligi ble based on patient's age to complete this topic HPV Vaccines Aged Out No longer eligi ble based on patient's age to complete this topic Hepatitis A Vaccines Aged Out No long er eligible based on patient's age to complete this topic IPV Vaccines Aged Out No longer eligi ble based on patient's age to complete this topic MMR Vaccines Aged Out No longer eligi ble based on patient's age to complete this topic Meningococcal ACWY Vaccine Aged Out N o longer eligible based on patient's age to complete this topic Meningococcal B Vaccine Aged Out No l onger eligible based on patient's age to complete this topic Pneumococcal Vaccine: Pediat rics (0 to 5 Years) and At-Risk Patients (6 to 64 Years) Aged Out No longer eligi ble based on patient's age to complete this topic RSV Immunization Patients Un rosamaria 20 months Aged Out No longer eligible b ased on patient's age to complete this topic Varicella Vaccines Aged Out No longer eligible based on patient's age to complete this topic Care Teams Pot Puncher Relationship Specialty Start Date End Date Betty Nugent MD [address] [place] PCP - General Internal Medicine 01/10/18
--- OUTSIDE RECORDS SUMMARY | 2024-06-06 23:05 | XMS_ITS | Clinical Summary ---
Author Organization [facility] Address [address] [place] [address] Care Team Providers Care Veneer Sander Name Role Phone Unavailable Primary Care Provider Unavailabl e Allergies Active Allergy Reactions Criticality Noted Date Comments Morphine Unknown/Patient and Family Unable to Define Medium 01/06/2022 Penicillins Unknown/Patient and Family Unable to Define Medium 01/06/2022 Piperacillin-Tazobacta m In Dex Angioedema High 06/13/2021 Other reaction(s): angioedema Vancomycin Unknown/Patient and Family Unable to Define Medium 01/06/2022 Medications Medication Sig Dispensed Refills Start Date End Date Status oxyCODONE (OXY-IR) 5 MG capsule Take 1 capsule (5 mg total) by mouth 4 times daily (every 6 hours) as needed for severe pain. Max Daily Amount: 20 mg Active albuterol (PROVENTIL HFA; VENTOLIN HFA) 108 (90 Base) MCG/ACT inhaler Inhale 2 puffs 4 times daily (every 6 hours) as needed for wheezing. Active insulin detemir (LevEMIR) 100 UNITS/ML injection Inject 0.08 mL (8 Units total) under the skin nightly. Active carvedilol (COREG) 12.5 MG tabletIndications:Hy pertensive emergency,Heart failure (HCC) Take 1 tablet (12.5 mg total) by mouth 2 (two) times a day with meals. 60 tablet 01/10/2022 Active amLODIPine (NORVASC) 5 MG tabletIndications:Hy pertensive emergency,Heart failure (HCC) Take 1 tablet (5 mg total) by mouth daily. Do not start before January 11, 2022. 30 tablet 01/11/2022 Active isosorbide dinitrate (ISORDIL) 30 MG tabletIndications:Hy pertensive emergency,Heart failure (HCC) Take 1 tablet (30 mg total) by mouth 3 (three) times a day in the morning, mid-day and early evening. 90 tablet 01/10/2022 Active hydrALAZINE (APRESOLINE) 50 MG tabletIndications:Hy pertensive emergency,Heart failure (HCC) Take 1 tablet (50 mg total) by mouth 3 (three) times a day. 90 tablet 01/10/2022 Active Active Problems Problem Noted Date Diagnosed Date Hypertensive urgency 01/08/2022 MYNOR (acute kidney injury) 01/08/2022 Acute on chronic heart failure 01/06/2022 Immunizations Name Administration Dates Next Due Influenza Inactivated/Split Preservative Free IM 01/06/2022() Social History Tobacco Use Types Packs/Day Years Used Date Smoking Tobacco: Never Assessed AUDIT-C Answer Date Recorded Q1: How often do you have a drink containing alcohol? Never 01/06/2022 Q2: How many drinks containi ng alcohol do you have on a typical day when you are drinking? Patient does not drink Q3: How often do you have si x or more drinks on one occasion? Never 01/06/2022 Sex and Gender Information Value Date Recorded Sex Assigned at Not on file Gender Identity Not on file Sexual Orientation Not on file Last Filed Vital Signs Vital Sign Reading Time Taken Comments Blood Pressure 137/75 01/10/2022 7:46 AM EST Pulse 93 01/10/2022 9:57 AM EST Temperature 36.6 ??C (97.8 ??F) 01/10/2022 7:46 AM ES T Respiratory Rate 18 01/10/2022 7:46 AM EST Oxygen Saturation 96% 01/10/2022 7:46 AM EST Inhaled Oxygen Concentration - - Weight 90.2 kg (198 lb 12.8 oz) 01/09/2022 7:25 AM EST Height - - Body Mass Index - - Plan of Treatment Health Maintenance Due Date Last Done Comments DTaP/Tdap/Td Vaccines (1 - Tdap) 07/28/2007 Hepatitis B Vaccines (1 of 3 - 19+ 3-dose series) 07/28/2007 Pneumococcal Vaccine: Pediatric (0-5 Years) and At-Risk Patients (6 to 49 Years) (1 of 2 - PCV) 07/28/2007 Pap Smear (Ages 21-65) 2009 Influenza Vaccine 09/27/2023 09/30/2016, 12/06/2011 COVID-19 Vaccine (2023-2 5 season) 2023 07/16/2020, 06/18/2020 HIV Screening Completed 01/09/2022 Hepatitis C Virus Screening Completed 01/09/2022 HPV Vaccines Aged Out No longer eligi ble based on patient's age to complete this topic Procedures Procedure Name Priority Date/Time Associated Diagnosis Comments HIV 1/2 AG/AB CMIA REFLEX TO CONFIRMATION Routine 01/09/2022 8:34 AM EST HEPATITIS C ANTIBODY REFLEX HCV RT-PCR, QUANT Routine 01/09/2022 8:34 AM EST from Last 3 Months or Most Recently Relevant to Health Maintenance Results * Hepatitis C Antibody reflex HCV RT-PCR, Quant (01/09/2022 8:34 AM EST) Hepatitis C Antibody 0.53 0.00 - 0.79 S/CO ratio 01/10/2022 10:39 AM EST [facility] Hepatitis C Antibody Interpretation Nonreactive Nonreactive 01/10/2022 10:39 AM EST [facility] Blood specimen (specimen) (Plasma/Serum) 01/09/2022 8:34 AM EST 01/09/2022 9:21 AM EST Jaziel B Post MD [facility] [address] [place] [address] * HIV 1/2 Ag/Ab CMIA Reflex to Confirmation (01/09/2022 8:34 AM EST) HIV 1/2 Ag/Ab CMIA Nonreactive Nonreactive 01/10/2022 10:39 AM EST [facility] Comment: Results show no evidence of infection by HIV 1/2. If clinically indicated, repeat CMIA or test by nucleic acid amplification. HIV 1/2 Antigen/Antibody CMIA reflex to confirmation AND HIV-1 RNA viral load recommended in patients who are taking or have recently taken PrEP. Blood specimen (specimen) Serum specimen / Unknown 01/09/2022 8:34 AM EST 01/09/2022 9:21 AM EST Jaziel B Post MD [facility] [employer], [facility] [address] [place] [address] from Last 3 Months or Most Recently Relevant to Health Maintenance Advance Directives * Full Code (Latest Code Status on File) Date Activated Date Inactivated Comments 01/06/2022 5:00 AM Question Answer Comments Decision Thoroughly Discussed with: Unable to Ilda musa
--- OUTSIDE RECORDS SUMMARY | 2024-06-06 23:05 | XMS_ITS | Encounter Summary ---
Author Organization [facility] Address [address] [place] [address] Care Team Providers Care Scada Engineer Name Role Phone Chanda Nugent Primary Care Provider Unavailabl e Encounter Details Date Type Department Care Team Description 04/02/2018 [facility] Medical Records [address] [place] [id number] Hayden Troncoso MD Social History Tobacco Use [...] on filedocumented in this encounter Care Teams Scada Engineer Relationship Specialty Start Date End Date Chanda Nugent PCP - General Internal Medicine 01/10/18 documented as of this encounter
--- OUTSIDE RECORDS SUMMARY | 2024-06-06 23:05 | XMS_ITS | Encounter Summary ---
Author Organization [facility] Address [address] [place] [address] Care Team Providers Care Shore Working Supervisor Name Role Phone Chanda Nugent Primary Care Provider Unavailabl e Encounter Details Date Type Department Care Team Description 04/04/2018 [facility] Medical Records [address] [place] [id number] Hayden Troncoso MD Social History Tobacco Use [...] on filedocumented in this encounter Care Teams Shore Working Supervisor Relationship Specialty Start Date End Date hCanda Nugent PCP - General Internal Medicine 01/10/18 documented as of this encounter
--- OUTSIDE RECORDS SUMMARY | 2024-06-06 23:05 | XMS_ITS | Encounter Summary ---
Author Organization [facility] Address [address] [place] [address] Care Team Providers Care Manager Cancer Name Role Phone Richard Mathur MD Primary Care Provider Ed Brewer MD Primary Care Provider Un available Community, Pcp Primary Care Provider Unavailabl e Community, Pcp Primary Care Provider Unavailabl e Chanda Nugent Primary Care Provider Unavailabl e Encounter Details Date Type Department Care Team Description 11/05/2015 Release of Information Medical Records [address] [place] [id number] Abstract, Provider Social History Tobacco Use Types [...] on filedocumented in this encounter Care Teams Manager Cancer Relationship Specialty Start Date End Date Richard Mathur MD PCP - General Internal Medicine 06/28/15 11/10/15 Ed Nash MD PCP - General Internal Medicine 11/11/15 Community, Pcp PCP - General Internal Medicine 07/27/16 08/21/17 Community, Pcp PCP - General Internal Medicine 08/22/17 01/09/18 Chanda Nugent PCP - General Internal Medicine 01/10/18 documented as of this encounter
--- OUTSIDE RECORDS SUMMARY | 2024-06-06 23:05 | XMS_ITS | Encounter Summary ---
Author Organization [facility] Address [address] [place] [address] Care Team Providers Care Starting Gate Driver Name Role Phone Ed Nash MD Primary Care Provider Un available Community, Pcp Primary Care Provider Unavailabl e Community, Pcp Primary Care Provider Unavailabl e Chanda Nugent Primary Care Provider Unavailabl e Reason for Visit * Reason Onset Date Comments Provider Call Back 04/27/2016 Encounter Details Date Type Department Care Team Description 04/27/2016 Telephone Adult Medicine [address] [address] Ed Nash MD Provider Call Back Social History Tobacco Use Types Packs/Day Years Used Date Smoking Tobacco: Former Alcohol Use Standard Drinks/Week Comments No 0 (1 standard drink = 0.6 oz pur e alcohol) Sex Assigned at Date Recorded Not on file documented as of this encounter Miscellaneous Notes * Telephone Encounter - Ed Nash MD - 04/28/2016 11:57 AM EST I have seen her only once in Oct 2015, after that she either canceled or no show to her follow up visits. She has DM neuropathy. As far as I can tell she does not qualify libia disabled placcard. * Telephone Encounter - Eboine Snell Marge - 04/27/2016 10:30 AM EST Caller requesting call back from provider: Is the caller the patient? YES If caller is not the patient, what is the callers name? N/A Callers relationship to patient? N/A If person calling is not the patient themselves, is there a verbal release in FYI or permanent comments for this person: NO Reason for call back: PATIENT IS CALLING TO SEE IF SHE CAN GET A HANDICAP PLACARD. Caller offered to speak with the nurse for assistance: YES Response: Patient offered to speak with nurse for assistance and patient agreed. Message forwarded to nurse. documented in this encounter Plan of Treatment Not on file documented as of this encounter Visit Diagnoses Not on filedocumented in this encounter Care Teams Starting Gate Driver Relationship Specialty Start Date End Date Ed Nash MD PCP - General Internal Medicine 11/11/15 Community, Pcp PCP - General Internal Medicine 07/27/16 08/21/17 Community, Pcp PCP - General Internal Medicine 08/22/17 01/09/18 Chanda Nugent PCP - General Internal Medicine 01/10/18 documented as of this encounter
--- NOTE | 2024-06-06 23:08 | PC.NURSE ---
Report given to KIRIT Ferris.
--- NOTE | 2024-06-06 23:10 | PC.NURSE ---
This RN assumed pt care @ 2300. Plan of care ongoing.
[2024-06-06 23:18] VITALS: BP 178/92
[2024-06-06] MEDS: hydrALAZINE HCl 50 MG TABLET PO (23:18)
[2024-06-06] MEDS: Bacitracin Oint 0.9 GM PACKET 1 APPL TOPICAL (23:18)
--- NOTE | 2024-06-06 23:26 | PC.NURSE ---
Pt a&ox4, no signs of distress. Pt denies pain at this time Pt medicated per mar Plan of care ongoing.
[2024-06-06 23:28] VITALS: BP 178/92; PULSE 91; RESP 18; TEMP 36.7; O2SAT 97
== END 2024-06-07 01:25 | disposition home or self-care (01) ==
PROVIDERS: Emergency Provider Internal Medicine
DX: E11.22 Type 2 diabetes mellitus with diabetic chronic kidney disease (principal); I12.0 Hypertensive chronic kidney disease with stage 5 chronic kidney disease or end stage renal disease; N18.6 End stage renal disease; Z79.899 Other long term (current) drug therapy
CPT/HCPCS: 82947; 99283; 99284

== ENCOUNTER 2024-06-25 17:31 | Emergency (ER) | payer OTHER, SELFPAY ==
[2024-06-25] VITALS (9 sets, daily range): BP systolic 160–189; BP diastolic 78–132; PULSE 79–87; RESP 14–19; TEMP 36.6–36.9; O2SAT 93–99; BMI 32.3
--- NOTE | ~2024-06-25 | CT_ITS ---
CLINICAL HISTORY: uncontrolled HTN, MENDIOLA, ICH CT head without contrast Comparison: CT/FL/SR - CT HEAD/BRAIN WO IV CON - 03/10/24 19:47 EST Findings: Similar lacunar infarcts in the right cerebellum. No acute territorial infarction, intracranial hemorrhage, midline shift or hydrocephalus. No significant atrophy-like change or white matter disease. The visualized paranasal sinuses and mastoid air cells are normal. Redemonstrated bilateral retinal hemorrhages, right more than left with more pronounced deformity of the right globe calcification of the right lens. Ophthalmology consult and clinical correlation advised. There is no acute fracture. Incomplete fusion of the posterior arch of C1. IMPRESSION: No acute intracranial hemorrhage or territorial infarction. Additional findings as described. This document has been electronically signed by: Ricardo Palumbo MD on 06/25/2024 20:10:42
--- NOTE | ~2024-06-25 | XR_ITS ---
CLINICAL HISTORY: pain 2 view chest x-ray Comparison: CR - XR CHEST 1V - 05/25/24 14:26 EDT Findings: No consolidation or effusion. Enlarged cardiac silhouette. Tunneled right IJ CVC tip projects over the right atrium. No acute fracture. IMPRESSION: 1. No acute findings. This document has been electronically signed by: Ricardo Palumbo MD on 06/25/2024 20:08:57
--- NOTE | 2024-06-25 18:03 | ECG_ITS ---
Test Reason : PAIN Blood Pressure : */* mmHG Vent. Rate : 84 BPM Atrial Rate : 84 BPM P-R Int : 184 ms QRS Dur : 144 ms QT Int : 464 ms P-R-T Axes : 40 -32 115 degrees QTcB Int : 548 ms Normal sinus rhythm Possible Left atrial enlargement Left axis deviation Right bundle branch block T wave abnormality, consider lateral ischemia Abnormal ECG When compared with ECG of 25-May-2024 14:32, Nonspecific T wave abnormality now evident in Inferior leads T wave inversion now evident in Lateral leads Referred By: Indu Carrero Electronically Signed By: Vinny Vera
--- NOTE | 2024-06-25 18:03 | PC.NURSE ---
Patient has just admitted and discharged recently and been here frequently does have history of end-stage renal disease and diabetes legally blind comes here as for sudden onset headache behind her eyes, also she had a small wound on the dorsum of the right foot which was bleeding earlier which appears to be a chronic issue. She is on Ancef 2 g post dialysis for next 6 weeks for positive blood culture with strep. Patient alert and oriented. hospital monitor applied and NSR noted. Patient noted to be hypersive with a history of HTN. Lungs coarse throughout. Respirations even and non-labored. Abdomen soft, distended, non-tender with positive bowel sounds. Patient receives dialysis T-Th-Sat. Permacath noted to right chest wall. Dressings to bilat feet CD@I.
--- NOTE | 2024-06-25 18:22 | ED.GENADULT ---
HPI - General Adult General Chief complaint: Headache Stated complaint: Chest pain, V/N, eye pressure, HTN, RBBB on 12lead Time Seen by Provider: 06/25/24 18:02 Source: patient Limitations: no limitations History of Present Illness ED Provider: Indu Carrero PA-C HPI narrative: 33-year-old female with a history of end-stage renal disease on dialysis Sunday/ but refuses to go on Saturdays, numerous hospital admissions secondary to nonadherence with her hemodialysis,?diabetes, diabetic retinopathy with associated blindness, peripheral vascular disease now status post bilateral trans metatarsal amputation, poorly controlled hypertension secondary to nonadherence with her medications, chronic respiratory failure on supplemental oxygen at home, heart failure with reduced ejection fraction, substance abuse, mood disorder, chronic pain , chronic chest pain , presents with chest pain and headache. Patient states she missed dialysis, there was an issue at the center, her cycle was cut short. Patient states she gets frequent headaches, it is generalized, retro-orbital. Denies recent cough or cold symptoms. Related Data Home Medications ?Medication ?Instructions ?Recorded ?Confirmed albuterol sulfate 90 mcg/actuation 2 puff inhalation Q6H PRN wheezing 01/15/24 06/25/24 aerosol inhaler (Ventolin HFA) lidocaine 5 % topical patch 1 patch topical DAILY PRN Pain 01/15/24 06/25/24 nitroglycerin 0.4 mg sublingual 0.4 mg sublingual DIRECTED PRN 01/15/24 06/25/24 tablet Angina acetaminophen 325 mg tablet 650 mg PO Q4H PRN mild pain 03/11/24 06/25/24 oxycodone 5 mg tablet 5 mg PO Q8H PRN Pain 05/25/24 06/25/24 Previous Rx's ?Medication ?Instructions ?Recorded carvedilol 12.5 mg tablet 12.5 mg PO BID 90 days #180 tabs 12/16/23 hydralazine 50 mg tablet 50 mg PO TID 90 days #270 tabs 12/16/23 cefazolin 2 gram intravenous 2 g IV . and 06/03/24 solution Allergies Allergy/AdvReac Type Severity Reaction Status Date / Time morphine [MORPHINE] Allergy Intermediate Itching Verified 06/25/24 17:51 azithromycin [From Zithromax] Allergy Hives Verified 06/25/24 17:51 gabapentin Allergy Facial Verified 06/25/24 17:51 Swelling tramadol Allergy Facial Verified 06/25/24 17:51 Swelling vancomycin Allergy Anaphylaxis Verified 06/25/24 17:51 Review of Systems Review of Systems: Yes all other systems are reviewed and are negative Constitutional: Constitutional: Denies fatigue, Denies fever(s) and Reports headache(s) ENT: Denies dizziness and Reports headache(s) Cardiovascular: Cardiovascular: Reports chest pain and Denies dyspnea Respiratory: Respiratory: Denies cough and Denies dyspnea Gastrointestinal: Gastrointestinal: Denies abdominal pain, Denies diarrhea, Denies nausea and Denies vomiting Neurologic: Denies dizziness and Reports headache(s) Endocrine: Endocrine: Denies fatigue PMFSH Past Medical History Attestation statement: The following information was validated with the patient. Medical History ESRD (end stage renal disease) Hypotonic neurogenic bladder Diabetic polyneuropathy ESRD (end stage renal disease) on dialysis Hypertensive emergency Non-compliance with renal dialysis Decompensated heart failure Congestive heart failure Renal failure Hypertension, uncontrolled Medical non-compliance Pericarditis Unspecified hypertension, condition or complication Metabolic acidosis Gastroparesis End stage chronic kidney disease Chronic kidney disease Anemia Chronic foot ulcer Plantar ulcer of left foot Major depressive disorder, single episode, severe Non-compliance with renal dialysis Hypertensive urgency MDD (major depressive disorder), recurrent episode MDD (major depressive disorder) Renal failure Foot ulcer CKD (chronic kidney disease) Hypertension Diabetic foot Hyperkalemia Vomiting Renal failure Hypertension Migraine Chronic pain ESRD on dialysis Non-compliance with renal dialysis Hypertension End-stage renal disease (ESRD) Diabetic foot ulcer associated with type 2 diabetes mellitus Diabetes ESRD needing dialysis Cardiomyopathy HFrEF (heart failure with reduced ejection fraction) delivery delivered Anemia in chronic kidney disease (CKD) CKD (chronic kidney disease) Headache, migraine Abnormal finding on echocardiogram Elevated troponin Chest pain Acute worsening of stage 3 chronic kidney disease Generalized edema Sepsis Cellulitis Pleural effusion CHF (congestive heart failure) (~06/07/22) Tachycardia Atypical chest pain Bone infection PAD (peripheral artery disease) Severe anemia Cellulitis and abscess of foot DM foot ulcer Osteomyelitis Asthma Depression with anxiety Diabetic retinopathy Type 2 diabetes mellitus with hyperglycemia, with long-term current use of insulin Blind right eye Diabetes Back pain Surgical History Tubal ligation status Previous section Hx laparoscopic cholecystectomy Hx of surgical procedure (~09/11/23) 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 Family History Family History Mother Coronary artery disease Myocardial infarction Stroke Diabetes mellitus Father Myocardial infarction Social History Social History Household Members: Other Household Members Other:: sister Housing: Apartment Are you a primary care associate to a significant other at home: No Do you presently have visiting nurse or other home services: No Unable to assess alcohol history related to: Unknown Alcohol intake: never Comment: pt. refusing high fall risk protocols. Patient Tobacco Use Status: Never used Tobacco e-Cigarette/Vaping Use: Never Used Second Hand Smoke Exposure: No Advance Directives: Yes Advance Directives on File: Yes Advance Directives Date on File: 09/04/23 service: No Current occupational status: unemployed and disabled Gender identity: Female Physical Exam ED Vital Signs: Vital Signs - 24 hr 06/25/24 17:48 06/25/24 17:53 06/25/24 18:31 Temperature 98 F 98.5 F Pulse Rate 85 86 85 Respiratory Rate 14 15 Blood Pressure 170/94 H 180/99 H 189/100 H Pulse Oximetry 97 98 Oxygen Delivery Method Room Air Room Air 06/25/24 20:00 06/25/24 20:38 06/25/24 20:51 Temperature Pulse Rate 79 80 80 Respiratory Rate 18 16 Blood Pressure 179/96 H 178/100 H Pulse Oximetry 98 Oxygen Delivery Method Room Air 06/25/24 21:40 06/25/24 22:00 Temperature Pulse Rate 82 80 Respiratory Rate 19 15 Blood Pressure 160/78 H 174/84 H Pulse Oximetry 97 93 Oxygen Delivery Method Room Air Room Air BMI result Body Mass Index 32.3 Const Other: Alert, appears older than stated age Orientation/consciousness: patient oriented x3 Resp Effort & Inspection: normal respiratory effort Cardio Other: Normal peripheral perfusion Skin Other: Warm dry no rash Neuro Other: Cranial nerves intact with the exception that she is blind General: patient oriented x3, gait normal and no focal motor deficits Psych Other: Cooperative Course Reevaluation(s) Reevaluation #1: Personal labs were hemolyzed, the 2nd set is finally returning, the patient is hyperkalemic at 5.8, she always has peaked T-waves, no change on her EKG, given 10 mg of albuterol, 10 mg of Lokelma and 2 g of calcium gluconate, added delta trop too Time: 20:25 Medications Administered Generic Name Dose Route Start Last Admin Trade Name Freq PRN Reason Stop Dose Admin Nitroglycerin 0.4 mg 06/25/24 18:04 06/25/24 20:38 Nitroglycerin 0.4 Mg Tab.Subl SUBLINGUAL 0.4 mg [id number] PRN Administration HTN Discontinued Medications Generic Name Dose Route Start Last Admin Trade Name Freq PRN Reason Stop Dose Admin Acetaminophen 975 mg 06/25/24 21:24 06/25/24 21:33 Acetaminophen 325 Mg Tablet PO 06/25/24 21:25 975 mg ONCE ONE Administration Albuterol Sulfate 10 mg 06/25/24 20:23 06/25/24 20:47 Albuterol Sulfate (0.083%) 2.5 Mg/3 Ml Vial.Neb INHALE 06/25/24 20:24 10 mg ONCE ONE Administration Diphenhydramine HCl 50 mg 06/25/24 18:22 06/25/24 18:30 Diphenhydramine Hcl 50 Mg/Ml Vial IVPUSH 06/25/24 18:23 50 mg ONCE ONE Administration Hydromorphone HCl 0.5 mg 06/25/24 18:22 06/25/24 18:31 Hydromorphone Hcl 0.5 Mg/0.5 Ml Syringe IVPUSH 06/25/24 18:23 0.5 mg ONCE ONE Administration Protocol Calcium Gluconate 2 gm in 100 mls @ 50 mls/hr 06/25/24 20:23 06/25/24 20:35 Calcium Gluconate IV 06/25/24 22:22 50 mls/hr ONCE ONE Administration Prochlorperazine Edisylate 10 mg 06/25/24 18:22 06/25/24 18:31 Prochlorperazine Edisylate 10 Mg/2 Ml Vial IVPUSH 06/25/24 18:23 10 mg ONCE ONE Administration Sodium Zirconium Cyclosilicate 10 gm 06/25/24 20:23 06/25/24 20:34 Sodium Zirconium Cyclosilicate 10 Gm Powd.Pack PO 06/25/24 20:24 10 gm ONCE ONE Administration Procedures Procedure Narrative Procedure Narrative: Ultrasound-guided IV 18 gauge 1-3/4 inch IV placed in left upper extremity, adequate blood return flushes well secured with Tegaderm. Medical Decision Making Medical Decision Making MDM Narrative: 33-year-old female with a history of end-stage renal disease on dialysis Sunday/ but refuses to go on Saturdays, numerous hospital admissions secondary to nonadherence with her hemodialysis,?diabetes, diabetic retinopathy with associated blindness, peripheral vascular disease now status post bilateral trans metatarsal amputation, poorly controlled hypertension secondary to nonadherence with her medications, chronic respiratory failure on supplemental oxygen at home, heart failure with reduced ejection fraction, substance abuse, mood disorder, chronic pain , chronic chest pain , presents with chest pain and headache. Patient states she missed dialysis, there was an issue at the center, her cycle was cut short. Patient states she gets frequent headaches, it is generalized, retro-orbital. Denies recent cough or cold symptoms. Problem: Nonadherence with blood pressure medication, end-stage renal disease, diabetes, chronic headache, chronic pain, chronic chest pain History: Per patient I have considered the following differential diagnoses: Intracranial hemorrhage secondary to poorly controlled hypertension, hypertensive urgency, hypertensive emergency, headache, ACS, volume overload, heart failure exacerbation Plan: The patient is frequently seen in the emergency department for similar symptoms. Considering ACS, although the patient has chronic chest pain, today is no different than her prior presentations, we will be screening basic labs troponin, EKG and chest x-ray. Also thought about volume overload and heart failure exacerbation, however she has no orthopnea, she does not appear volume overloaded on exam, she is not hypoxic, adding a BNP. On regard to her headache, her blood pressure is always poorly controlled, she is at her baseline mentation, she has no neurologic deficits, she is not actively bleeding to suggest an intracranial hemorrhage, however to err on the side of caution I am obtaining a CT scan of the brain. We will give low-dose Dilaudid Compazine and Benadryl for her headache. I have independently reviewed the following tests: Labs: No leukocytosis, not anemic, 1st troponin 306.5, BNP 3515, delta troponin 286.1 EKG: Normal sinus rhythm, rate 84, right bundle branch again appreciated, T-wave abnormalities noted anterolateral leads, not new, QTC 548 which is chronically elevated Chest x-ray:Findings: No consolidation or effusion. Enlarged cardiac silhouette. Tunneled right IJ CVC tip projects over the right atrium. No acute fracture. IMPRESSION: 1. No acute findings. CT brain, Findings: Similar lacunar infarcts in the right cerebellum. No acute territorial infarction, intracranial hemorrhage, midline shift or hydrocephalus. No significant atrophy-like change or white matter disease. The visualized paranasal sinuses and mastoid air cells are normal. Redemonstrated bilateral retinal hemorrhages, right more than left with more pronounced deformity of the right globe calcification of the right lens. Ophthalmology consult and clinical correlation advised. There is no acute fracture. Incomplete fusion of the posterior arch of C1. IMPRESSION: No acute intracranial hemorrhage or territorial infarction. Additional findings as described. Lab Data 06/25/24 18:18 06/25/24 19:59 Labs: Lab Results 06/25/24 06/25/24 06/25/24 Range/Units 18:18 19:59 21:09 WBC 4.0 L (4.8-10.8) X10*3/uL RBC 3.61 L (4.20-5.50) X10*6/uL Hgb 10.4 L (12.0-16.0) g/dl Hct 32.3 L (37.0-47.0) % MCV 89.5 (80.0-98.0) fL MCH 28.8 (27.0-33.0) pg MCHC 32.2 (31.0-35.0) g/dl RDW 17.3 H (11.0-16.0) % Plt Count 129 L D (160-400) X10*3/uL MPV 12.4 H (9.4-12.3) fL Immature Gran % (Auto) 0.2 (0.0-0.4) % Neut % (Auto) 57.0 (45-73) % Lymph % (Auto) 17.2 L (20-40) % [place] % (Auto) 17.7 H (2-11) % Eos % (Auto) 7.2 H (0-4) % Baso % (Auto) 0.7 (0-2) % Lymph # (Auto) 0.7 L (1.2-4.9) X10*3/uL [place] # (Auto) 0.7 (0.1-1.2) X10*3/uL Eos # (Auto) 0.3 (0.0-0.4) X10*3/uL Baso # (Auto) 0.0 (0.0-0.2) X10*3/uL Abs Immat Gran (auto) 0.01 (0.00-0.03) X10*3/uL Absolute Neuts (auto) 2.3 (2.0-8.3) x10*3/uL Absolute Nucleated RBC 0.000 (0.0-0.012) X10*3/uL Nucleated RBC % (auto) 0.0 (0.0-0.2) /100WBC Sodium 137 (135-145) mmol/L Potassium 5.8 H D (3.3-5.1) mmol/L Chloride 99 (96-108) mmol/L Carbon Dioxide 22 (22-29) mmol/L Anion Gap 22 H (12-20) BUN 75 H (9-16) mg/dL Creatinine 9.35 H* (0.5-1.4) mg/dL Estim Creat Clear Calc 9.5 Estimated GFR 5 Random Glucose 121 H (60-115) mg/dL Calcium 8.5 D (8.4-10.2) mg/dL Magnesium 2.6 (1.6-2.6) mg/dL Total Bilirubin 0.7 (0.0-1.0) mg/dL AST 46 H (5-31) U/L ALT < 6 (0-31) U/L Alkaline Phosphatase 191 H (39-117) U/L Troponin I High Sens 306.5 H* D 286.1 H* (<3.5-17.0) ng/L B-Natriuretic Peptide 3515 H (<100) pg/mL Total Protein 7.8 (6.5-8.0) g/dL Albumin 3.4 L (3.5-5.0) g/dL Discharge Plan Discharge Clinical Impression: Hypertension, Headache, Chest pain Patient Disposition: Home, Self-Care Instructions: Noncardiac Chest Pain (ED), General Headache (ED), Hypertension and Diabetes (ED) Additional Instructions: All of your screening labs including 2 cardiac enzymes were at your baseline. Your EKGs at your baseline there were no concerning changes. There was no acute abnormality on your chest x-ray. The CT scan of your brain reveals no acute bleeding. You need to manage your blood pressure appropriately. You need to attend dialysis tomorrow which you are scheduled for. Continue to follow up with your healthcare providers. Prescriptions: No Action carvedilol 12.5 mg Tablet 12.5 mg PO BID 90 Days Qty: 180 0RF Protocol: Hold for SBP/HR < HOLD for SBP < : 90 HOLD for HR < : 60 hydralazine 50 mg Tablet 50 mg PO TID 90 Days Qty: 270 0RF Protocol: Hold for SBP< HOLD for SBP < : 90 acetaminophen 325 mg tablet 650 mg PO Q4H PRN (Reason: mild pain) oxycodone 5 mg tablet 5 mg PO Q8H PRN (Reason: Pain) cefazolin 2 gram recon soln 2 g IV ./ and Sun Rx Instructions: 2 g cefazolin IV Sunday and Sunday post hemodialysis, end date July 11 lidocaine 5 % adhesive patch,medicated 1 patch topical DAILY PRN (Reason: Pain) nitroglycerin 0.4 mg tablet, sublingual 0.4 mg sublingual DIRECTED PRN (Reason: Angina) albuterol sulfate [Ventolin HFA] 90 mcg/actuation HFA aerosol inhaler 2 puff inhalation Q6H PRN (Reason: wheezing) Print Language: Thai
[2024-06-25 18:25] LABS: MANUAL DIFF FLAG NO
[2024-06-25 18:27] LABS: Basophils Percent Auto 0.7 % (0-2); Eosinophils Absolute Auto 0.3 X10*3/uL (0.0-0.4); Eosinophils Percent Auto 7.2 % (0-4); Hematocrit 32.3 % (37.0-47.0); Hemoglobin 10.4 g/dl (12.0-16.0); Imm Gran Abs Auto 0.01 X10*3/uL (0.00-0.03); Imm Gran Pct Auto 0.2 % (0.0-0.4); Lymphocytes Absolute Auto 0.7 X10*3/uL (1.2-4.9); Lymphocytes Percent Auto 17.2 % (20-40); Mean Corpuscular HGB Conc 32.2 g/dl (31.0-35.0); Mean Corpuscular Hemoglobin 28.8 pg (27.0-33.0); Mean Corpuscular Volume 89.5 fL (80.0-98.0); Mean Platelet Volume 12.4 fL (9.4-12.3); Monocytes Absolute Auto 0.7 X10*3/uL (0.1-1.2); Monocytes Percent Auto 17.7 % (2-11); Neutrophils Absolute Auto 2.3 x10*3/uL (2.0-8.3); Platelet Count 129 X10*3/uL (160-400); Red Blood Count 3.61 X10*6/uL (4.20-5.50); Red Cell Distribution Width 17.3 % (11.0-16.0)
[2024-06-25] MEDS: diphenhydrAMINE HCL 50 MG/ML VIAL IVPUSH (18:30)
[2024-06-25] MEDS: HYDROmorphone HCl 0.5 MG/0.5 ML SYRINGE IVPUSH (18:31)
[2024-06-25] MEDS: Prochlorperazine Edisylate 10 MG/2 ML VIAL IVPUSH (18:31)
[2024-06-25] MEDS: Nitroglycerin 0.4 MG TAB.SUBL SUBLINGUAL ×2 (18:31→20:38)
[2024-06-25 18:50] LABS: B Type Natriuretic Peptide 3515 pg/mL (<100)
[2024-06-25 18:53] LABS: Troponin-I High Sensitivity 306.5 ng/L (<3.5-17.0)
[2024-06-25 20:22] LABS: Alanine Aminotransferase < 6 U/L (0-31); Albumin Level 3.4 g/dL (3.5-5.0); Alkaline Phosphatase 191 U/L (39-117); Anion Gap 22 (12-20); Aspartate Amino Transferase 46 U/L (5-31); Bilirubin Total 0.7 mg/dL (0.0-1.0); Blood Urea Nitrogen 75 mg/dL (9-16); Calcium 8.5 mg/dL (8.4-10.2); Carbon Dioxide 22 mmol/L (22-29); Chloride 99 mmol/L (96-108); Creatinine Clr Calc Pharmacy 9.5; Estimated Glomerular Filt Rate 5; Glucose Random 121 mg/dL (60-115); Magnesium 2.6 mg/dL (1.6-2.6); Potassium 5.8 mmol/L (3.3-5.1); Sodium 137 mmol/L (135-145); Total Protein 7.8 g/dL (6.5-8.0)
[2024-06-25] MEDS: Sodium Zirconium Cyclosilicate 10 GM POWD.PACK PO (20:34)
[2024-06-25] MEDS: Calcium Gluconate/NaCl,Iso-Osm 2 GM/100 ML PLAST..BAG IV (20:35)
[2024-06-25] MEDS: Albuterol Sulfate (0.083%) 2.5 MG/3 ML VIAL.NEB 10 MG INHALE (20:47)
--- NOTE | 2024-06-25 21:02 | PHA.MEDREC ---
Addendum entered by Ashvin Ramey RPh 06/25/24 21:14: MED REC CHECKED BY [facility] Original Note: Pharmacy Consult ? Medication Reconciliation Pharmacy has completed the medication reconciliation. Spoke with patient and she was able to confirm her medications. Patient confirmed she gets the Cefazolin 2g IV with her dialysis on Tuesdays, and Saturdays and states she couldn't remember if she took it yesterday since her dialysis was cut short yesterday but she took it on Sunday and it is scheduled to end July 11.
[2024-06-25] MEDS: Acetaminophen 325 MG TABLET 975 MG PO (21:33)
[2024-06-25 21:38] LABS: Troponin-I High Sensitivity 286.1 ng/L (<3.5-17.0)
== END 2024-06-25 23:14 | disposition home or self-care (01) ==
PROVIDERS: Physician Assistant Medical; Emergency Provider Emergency Medicine
DX: R51.9 Headache, unspecified (principal); E11.22 Type 2 diabetes mellitus with diabetic chronic kidney disease; I13.2 Hypertensive heart and chronic kidney disease with heart failure and with stage 5 chronic kidney disease, or end stage renal disease; I50.20 Unspecified systolic (congestive) heart failure; N18.6 End stage renal disease; Z99.2 Dependence on renal dialysis; D63.1 Anemia in chronic kidney disease; J96.10 Chronic respiratory failure, unspecified whether with hypoxia or hypercapnia; J45.909 Unspecified asthma, uncomplicated; F11.20 Opioid dependence, uncomplicated; Z99.81 Dependence on supplemental oxygen; Z91.158 Patient's noncompliance with renal dialysis for other reason; Z91.148 Patient's other noncompliance with medication regimen for other reason
CPT/HCPCS: 36415; 70450; 71046; 80053; 83735; 83880; 84484; 85025; 93005; 94640; 96365; 96366; 96375; 99285; J0613; J0737; J1171; J1200

== ENCOUNTER → 2024-06-25 18:03 | Outpatient (BNV) | payer OTHER, SELFPAY | PROVIDERS: Emergency Provider Emergency Medicine; Visit Provider Radiology Diagnostic Radiology | DX: I61.9 Nontraumatic intracerebral hemorrhage, unspecified (principal); R51.9 Headache, unspecified; I10 Essential (primary) hypertension; R07.9 Chest pain, unspecified | CPT/HCPCS: 70450; 71046 ==

== ENCOUNTER → 2024-06-25 18:03 | Outpatient (BNV) | payer OTHER, SELFPAY | PROVIDERS: Emergency Provider Emergency Medicine; Visit Provider Internal Medicine Cardiovascular Disease | DX: I45.10 Unspecified right bundle-branch block (principal) | CPT/HCPCS: 93010 ==

== ENCOUNTER 2024-07-03 15:09 | Inpatient (IN) | payer OTHER, SELFPAY ==
--- NOTE | ~2024-07-03 | CT_ITS ---
CLINICAL HISTORY: abdominal pain, nausea vomiting CT abdomen and pelvis without contrast Comparison: CT/SR - CT ABDOMEN PELVIS W IV CON - 05/25/24 16:33 EDT Findings: Examination is limited by without contrast. Lung bases are clear. No pleural effusion. Dialysis catheter is partially visualized. Enlargement of the liver and spleen. Pancreas and both adrenals show normal size, shape and attenuation on present unenhanced scan. No CBD dilatation. Cholecystectomy. No kidney stone. No hydronephrosis. Small hypodensity of the left kidney. Diffuse Atherosclerosis calcification of the arterial structures. The IVC, aorta and portal vein are within normal position and caliber. Diffuse severe Atherosclerosis calcification of the arterial structures. Possible reactive retroperitoneal lymph nodes. The visible parts of the bowel loops show no obvious mass lesions or wall thickening. Appendix appears normal. Urinary bladder reveals normal lumen and herbert. The pelvic organs are unremarkable. Visualized osseous structures appear unremarkable. No lytic or sclerotic bony lesion. IMPRESSION: Hepatosplenomegaly. Diffuse severe Atherosclerosis calcification of the arterial structures. Additional findings as above. This document has been electronically signed by: Aubrey Abad MD on 07/03/2024 20:25:42
[2024-07-03 15:36] VITALS: BP 174/100; BP 179/83; PULSE 86; PULSE 99; RESP 18; TEMP 36.5; O2SAT 99; BMI 24.2
--- NOTE | 2024-07-03 15:51 | ECG_ITS ---
Test Reason : LOC Blood Pressure : */* mmHG Vent. Rate : 83 BPM Atrial Rate : 83 BPM P-R Int : 186 ms QRS Dur : 148 ms QT Int : 484 ms P-R-T Axes : 57 -72 78 degrees QTcB Int : 568 ms Normal sinus rhythm Possible Left atrial enlargement Right bundle branch block Left anterior fascicular block Bifascicular block T wave abnormality, consider lateral ischemia Abnormal ECG When compared with ECG of 25-Jun-2024 18:20, T wave inversion more evident in Lateral leads Referred By: Generic ED Physician Electronically Signed By: JASKARAN COOL
--- OUTSIDE RECORDS SUMMARY | 2024-07-03 16:13 | XMS_ITS | Encounter Summary ---
Author Organization [facility] Address [address] [place] [id number] Phone Care Team Providers Care Internet Project Manager Name Role Phone Katlyn Manzanofer Primary Care Provider Unava ilable Encounter Details Date Type Department Care Team (Late st Contact Info) Description 07/01/2024 Treatment [facility] [address] [address] Placido Carver MD [address] [address] End stage renal disease; Dependence on renal dialysis Social History Tobacco Use Types Packs/Day Years Used Date Smoking Tobacco: Never Assessed Comments Unknown Sex and Gender Information Value Date Recorded Sex Assigned at Not on file Legal Sex Female 4:53 PM EST Gender Identity Not on file Sexual Orientation Not on file documented as of this encounter Miscellaneous Notes * Dialysis Note - Placido Carver MD - 07/01/2024 12:00 AM EDT Patient: Shereen Taylor : 1990 Note Type: Dialysis Rounds-Comp Service Date: 07/01/2024 This patient was personally seen for a complete visit as part of routine monthly dialysis care for end stage renal disease. Attending Hot Roller: PLACIDO CARVER MD Dialysis Location: [facility] Schedule: Shift: 2 OVERVIEW Patient is stable. HOME MEDICATIONS Medications reviewed. BP AND FLUID ASSESSMENT Acceptable blood pressure. Fluid status acceptable. ADEQUACY ASSESSMENT Kt/V, Natural Log 1.49 (06/05/24) 1.45 (05/01/24) 1.32 (04/10/24) UREA REDUCTION RATIO (%) 73 (06/05/24) 69 (05/01/24) 65 (04/10/24) BUN 81 (06/05/24) 80 (05/01/24) 111 (04/10/24) BUN Post Dialysis 22 (06/05/24) 25 (05/01/24) 39 (04/10/24) Creatinine 10.61 (06/05/24) 7.77 (05/01/24) 6.74 (04/05/24) Bicarbonate (CO2) 24 (06/07/24) 19 (06/05/24) 24 (05/01/24) Sodium 130 (06/05/24) 137 (05/01/24) 137 (04/05/24) Target met. Prescription compliance acceptable. ACCESS ASSESSMENT Vascular access examined. ANEMIA ASSESSMENT Hgb 11.6 (06/21/24) 9.3 (06/14/24) 10.6 (06/05/24) Iron Saturation (TSat) 19 (06/05/24) 10 (05/01/24) 10 (04/05/24) Ferritin 134 (06/05/24) 39 (05/01/24) 22 (04/05/24) Iron 52 (06/05/24) 37 (05/01/24) 37 (04/05/24) TIBC 277 (06/05/24) 363 (05/01/24) 361 (04/05/24) MCV 88.0 (06/05/24) 94.6 (05/01/24) 95.0 (04/05/24) Platelets 144 (06/05/24) 125 (05/01/24) 114 (04/05/24) Anemia targets met. Hemoglobin at target. BMM ASSESSMENT Calcium, Adjusted Total 8.4 06/05/24 8.7 05/01/24 9.3 04/05/24 Calcium 8.4 06/05/24 8.6 05/01/24 8.8 04/05/24 Phosphorus, Serum 9.5 06/05/24 11.5 05/13/24 10.3 05/01/24 Ca*PO4 79.8 06/05/24 88.6 05/01/24 74.8 04/05/24 PTH, Intact 390 06/05/24 509 05/01/24 453 03/06/24 Vitamin D, 25-Hydroxy 17 01/23/24 Magnesium 2.6 06/05/24 2.9 05/01/24 2.3 04/05/24 Alkaline Phosphatase 235 06/05/24 242 05/01/24 237 04/05/24 Aluminum 7 03/06/24 5 02/12/24 PTH within target. Phosphorus controlled. Calcium controlled. Bone and mineral metabolism parameters reviewed. NUTRITION ASSESSMENT Albumin 4.0 06/05/24 3.9 05/01/24 3.4 04/05/24 Potassium 5.4 06/05/24 5.5 05/01/24 5.3 04/05/24 Hemoglobin A1C 5.9 06/05/24 5.4 03/06/24 5.1 01/23/24 Albumin at goal. PHYSICAL EXAM Exam performed. Vital Signs Reviewed. CV - Blood pressure noted. No edema. EXT - No ulcers. ADDITIONAL LABS White Blood Cells 5.4 (06/05/24) 3.8 (05/01/24) 3.7 (04/05/24) Cholesterol 140 (06/05/24) 106 (03/06/24) 95 (01/23/24) HDL 38 (06/05/24) 34 (03/06/24) 33 (01/23/24) LDL-Calc 90 (06/05/24) 64 (03/06/24) 53 (01/23/24) Triglycerides 62 (06/05/24) 42 (03/06/24) 45 (01/23/24) Hep B Surface Antibody 7 (03/06/24) 4 (01/23/24) Uric Acid 8.6 (03/06/24) 6.3 (01/23/24) Signed by: PLACIDO CARVER MD on 07/01/2024 at 09:20:08 PM Transcribed by: PLACIDO CARVER MD on 07/01/2024 at 09:20:08 PM documented in this encounter Plan of Treatment Not on file documented as of this encounter Visit Diagnoses Diagnosis End stage renal disease Dependence on renal dialysis documented in this encounter Care Teams Internet Project Manager Relationship Specialty Start Date End Date Alyssa Manzano DO [address] [place] [id number] PCP - General Family Medicine 03/02/21 documented as of this encounter
--- OUTSIDE RECORDS SUMMARY | 2024-07-03 16:13 | XMS_ITS | Encounter Summary ---
Author Organization [employer] Address [address] [place] [address] [address] [place] [address] Care Team Providers Care Hub Lead Name Role Phone Carolina Hsu Primary Care Provider [phone] Genevieve Gtz MD Primary Care Pro vider Encounter Details Date Type Department Care Team ([facility] Contact Info) Description 09/11/2022 Abstract [facility] [address] [place] [phone] Carolina Hsu FNP [address] [place] [address] [place] [address] Social History Tobacco Use Types Packs/Day Years Used Date Smoking Tobacco: Never Smokeless Tobacco: Never Alcohol Use Standard Drinks/Week Comments Never 0 (1 standard drink = 0.6 oz pur e alcohol) Comments Unknown Sex and Gender Information Value Date Recorded Sex Assigned at Female 12/26/2021 10:16 AM EDT Legal Sex Female 10:16 AM EDT Gender Identity Female 12/26/2021 10:16 AM EDT Sexual Orientation Straight 12/26/2021 10 :16 AM EDT documented as of this encounter Plan of Treatment Upcoming Encounters Date Type Department Care Team (Late Contact Info) Description 08/06/2024 2:15 PM EDT Clinical Support [facility] [address] [place] [address] Paola Thurston, KIRIT [address] [place] [address] documented as of this encounter Visit Diagnoses Not on filedocumented in this encounter Care Teams Hub Lead Relationship Specialty Start Date End Date Carolina Hsu FNP PCP - General Family Medicine 01/16/22 10/11/22 Genevieve Gtz MD [address] [place] [id number] PCP - General Internal Medicine 10/12/22 documented as of this encounter
--- OUTSIDE RECORDS SUMMARY | 2024-07-03 16:13 | XMS_ITS | Clinical Summary ---
Author Organization [facility] Address [address] [place] [address] Care Team Providers Care Power Switchboard Operator Name Role Phone Betty Nugent MD Primary Care Provider [phone] Surgical History Surgery Date Site/Laterality Comments SECTION [...] age to complete this topic Care Teams Power Switchboard Operator Relationship Specialty Start Date End Date Betty Nugent MD [address] [place] PCP - General Internal Medicine 01/10/18
--- OUTSIDE RECORDS SUMMARY | 2024-07-03 16:13 | XMS_ITS | Encounter Summary ---
Author Organization [employer] Address [address] [place] [address] 7t [place] [address] Care Team Providers Care Probation And Parole Officer Name Role Phone Carolina Hsu Primary Care Provider [phone]- [phone] Genevieve Gtz MD Primary Care Pro vider Encounter Details Date Type Department Care Team ([facility] Contact Info) Description 09/11/2022 Abstract [facility] MEDICINE [address] [place] [phone] Carolina Hsu FNP [address] [place] [address] Dept [place] [address] Social History Tobacco Use Types Packs/Day Years [...] Description 08/06/2024 2:15 PM EDT Clinical Support [facility] MED & PEDS [address] [place] [address] Paola Thurston, KIRIT [address] [place] [address] documented as of this encounter Visit Diagnoses Not on filedocumented in this encounter Care Teams Probation And Parole Officer Relationship Specialty Start Date End Date Carolina Hsu FNP PCP - General Family Medicine 01/16/22 10/11/22 Genevieve Gtz MD [address] [place] [phone] PCP - General Internal Medicine 10/12/22 documented as of this encounter
--- OUTSIDE RECORDS SUMMARY | 2024-07-03 16:13 | XMS_ITS | Encounter Summary ---
Author Organization [employer] Address [address] [place] [address] 7t [place] [address] Care Team Providers Care Geneticist Name Role Phone Carolina Hsu LOAN EXPEDITOR Primary Care Provider [phone]- [phone] Genevieve Gtz MD Primary Care Pro vider Reason for Visit * Reason Onset Date Comments Appointment Request 03/30/2022 Encounter Details Date Type Department Care Team ([facility] st Contact Info) Description 03/30/2022 Telephone [facility] MEDICINE [address] [place] [id number] Carolina Hsu FNP [address] [place] [address] Dept [place] [address] Appointment Request Social History Tobacco Use Types Packs/Day Years Used Date Smoking Tobacco: Never Assessed Comments Unknown Sex and Gender Information Value Date Recorded Sex Assigned at Female 12/26/2021 10:16 AM EDT Legal Sex Female 10:16 AM EDT Gender Identity Female 12/26/2021 10:16 AM EDT Sexual Orientation Straight 12/26/2021 10 :16 AM EDT documented as of this encounter Miscellaneous Notes * Telephone Encounter - Lala Purdy RN - 04/13/2022 2:43 PM EST TC to pt, NCNS for todays LEATHER SCRUBBER Renewal appt. Pt stated she is currently admitted to [facility], she statedshe has fluid in her lungs and she's a mess. Wished patient well and told her I would forward this information to her PCP. Requested she call back to reschedule LEATHER SCRUBBER appt when she's feeling better. * Telephone Encounter - Stephen Davison - 03/30/2022 10:41 AM EST documented in this encounter Plan of Treatment Upcoming Encounters Date Type Department Care Team (Late st Contact Info) Description 08/06/2024 2:15 PM EDT Clinical Support [facility] MED & PEDS [address] [place] [address] Paola Thurston, KIRIT [address] [place] [address] documented as of this encounter Visit Diagnoses Not on filedocumented in this encounter Care Teams Geneticist Relationship Specialty Start Date End Date Carolina Hsu FNP PCP - General Family Medicine 01/16/22 10/11/22 Genevieve Gtz MD [address] [place] [address] [phone] PCP - General Internal Medicine 10/12/22 documented as of this encounter
--- OUTSIDE RECORDS SUMMARY | 2024-07-03 16:13 | XMS_ITS | Encounter Summary ---
Author Organization [employer] Address [address] [facility] 7t [place] [address] Care Team Providers Care Real Estate Internship Name Role Phone Genevieve Gtz MD Primary Care Pro vider Reason for Visit * Reason Onset Date Comments Hospital Follow-up 03/04/2024 Encounter Details Date Type Department Care Team (Late st Contact Info) Description 03/04/2024 Telephone [facility] MEDICINE [address] [place], [place] [phone] Genevieve Gtz MD [address] [place], [place] [phone] Hospital Follow-up Social History Tobacco Use Types Packs/Day Years Used Date Smoking Tobacco: Never Smokeless Tobacco: Never Alcohol Use Standard Drinks/Week Comments Never 0 (1 standard drink = 0.6 oz pur e alcohol) Depression Answer Date Recorded Patient Health Questionnaire-9 Score 0 10/23/2023 Patient Health Questionnaire-9 Score 0 10/23/2023 Last PHQ-9: Questionnaire Data Not on file 0 10/23/2023 Housing Stability Answer Date Recorded What is your housing situation today? I have katya reinoso 09/20/[address] you li ve. Do you have problems with any of the following? None of the above 09/20/2023 Food Insecurity Answer Date Recorded Within the past 12 months, y ou worried that your food would run out before you got money to buy more: Never True 09/20/2023 Within the past 12 months,th e food you bought just didn't last and you didn't have enough money to get more: Never True Transportation Answer Date Recorded In the past 12 months, has l ack of transportation kept you from medical appts, meetings, work or from getting things needed for daily living? No 09/20/2023 Utilities Answer Date Recorded In the past 12 months, has t he electric, gas, oil or water company threatened to shut off services in your home? No 09/20/2023 Depression Answer Date Recorded Patient Health Questionnaire-2 Score 0 10/23/2023 Internet Access Answer Date Recorded Internet Access Q1 Yes 10/26/2023 Internet Access Q2 Not on file 10/26/2023 Comments Unknown Sex and Gender Information Value Date Recorded Sex Assigned at Female 12/26/2021 10:16 AM EDT Legal Sex Female 10:16 AM EDT Gender Identity Female 12/26/2021 10:16 AM EDT Sexual Orientation Straight 12/26/2021 10 :16 AM EDT documented as of this encounter Miscellaneous Notes * Telephone Encounter - Armida Gómez - 03/04/2024 8:51 AM EST Tc from pt requesting a HDF appt. [place] [facility] [place]: 02/21/[place]24 Discharge date: 02/01/2025 Diagnosed: Oxygen , Infection Dialysis tube *Send message to [place] Clinical Care Coordinators documented in this encounter Plan of Treatment Upcoming Encounters Date Type Department Care Team (Late st Contact Info) Description 08/06/2024 2:15 PM EDT Clinical Support [facility] MED & PEDS [address] [place] [address] Paola Thurston RN [address] [place] [address] documented as of this encounter Goals Goal Patient Goal Type Associated Problems Recent Progress Patient-Stated? Author Blood Pressure < 140/90 Blood Pressure 129/75(2024 9:08 AM EST) No Jaime Chilel Hemoglobin A1c < 8 Result Component 5.7( 9:45 AM EST) No Jaime Chilel documented as of this encounter Visit Diagnoses Not on filedocumented in this encounter Additional Health Concerns Assessment Noted Time PHQ-9 Depression Total Score: 0 10/23/19 24 2:23 PM EDT documented as of this encounter Care Teams Real Estate Internship Relationship Specialty Start Date End Date Genevieve Gtz MD [address] [place] [phone] PCP - General Internal Medicine 10/12/22 documented as of this encounter
--- OUTSIDE RECORDS SUMMARY | 2024-07-03 16:13 | XMS_ITS | Encounter Summary ---
Author Organization [employer] Address [address] [place] [address] 7t [place] [address] Care Team Providers Care Crab Catcher Name Role Phone Genevieve Gtz MD Primary Care Pro vider Reason for Visit * Reason Onset Date Comments Med Refill 11/27/2022 Encounter Details Date Type Department Care Team (Late st Contact Info) Description 11/27/2022 Telephone [facility] MEDICINE [address] [place], [place] [phone] Genevieve Gtz MD [address] [place], [place] [phone] Med Refill Social History Tobacco Use Types Packs/Day Years Used Date Smoking Tobacco: Never Smokeless Tobacco: Never Alcohol Use Standard Drinks/Week Comments Never 0 (1 standard drink = 0.6 oz pur e alcohol) Depression Answer Date Recorded Patient Health Questionnaire-9 Score 0 10/12/2022 Depression Answer Date Recorded Patient Health Questionnaire-2 Score 0 10/12/2022 Comments Unknown Sex and Gender Information Value Date Recorded Sex Assigned at Female 12/26/2021 10:16 AM EDT Legal Sex Female 10:16 AM EDT Gender Identity Female 12/26/2021 10:16 AM EDT Sexual Orientation Straight 12/26/2021 10 :16 AM EDT documented as of this encounter Miscellaneous Notes * Telephone Encounter - Magui Thompson - 11/27/2022 12:37 PM EDT Tc from patient requesting a med refill for medication oxycodone 5 mg. Please send to [facility]/pharmacy #[id number] - [place], [place] - [address] [place] [address] Cool documented in this encounter Plan of Treatment Upcoming Encounters Date Type Department Care Team (Late st Contact Info) Description 08/06/2024 2:15 PM EDT Clinical Support [facility] MED & PEDS [address] [place] [address] Paola Thurston, RN [address] [place], [place] documented as of this encounter Visit Diagnoses Not on filedocumented in this encounter Additional Health Concerns Assessment Noted Time PHQ-9 Depression Total Score: 0 10/13/19 2:37 PM EDT documented as of this encounter Care Teams Crab Catcher Relationship Specialty Start Date End Date Genevieve Gtz MD [address] [place] [phone] PCP - General Internal Medicine 10/12/22 documented as of this encounter
--- OUTSIDE RECORDS SUMMARY | 2024-07-03 16:13 | XMS_ITS | Clinical Summary ---
Author Organization [facility] Address [address] [address] Phone Care Team Providers Care Club Car Attendant Name Role Phone Katlyn Manzanofer Primary Care [...] Encounters Date Type Department Care Team Description 07/01/2024 Treatment [facility] [address] [address] Ed Carver MD End stage renal disease; Dependence on renal dialysis 06/19/2024 Treatment [facility] [address] [address] Ed Carver MD End stage renal disease; Dependence on renal dialysis 06/17/2024 Treatment [facility] [address] [address] Ed Carver MD End stage renal disease; Dependence on renal dialysis 06/14/2024 Treatment [facility] [address] [address] Ed Carver MD End stage renal disease; Dependence on renal dialysis 06/07/2024 Treatment [facility] [address] [address] Ed Carver MD End stage renal disease; Dependence on renal dialysis 05/22/2024 Treatment [facility] [address] [address] Ed Carver MD End stage renal disease; Dependence on renal dialysis 05/13/2024 Treatment [facility] [address] [address] Ed Carver MD End stage renal disease; Dependence on renal dialysis 05/08/2024 Treatment [facility] [address] [address] Ed Carver MD End stage renal disease; Dependence on renal dialysis 05/03/2024 Treatment [facility] [address] [address] Ed Carver MD End stage renal disease; Dependence on renal dialysis 04/22/2024 Treatment [facility] [address] [phone] Ed Carver MD 04/19/2024 Treatment [facility] [address] [address] Ed Carver MD 04/12/2024 Treatment [facility] [address] [address] Ed Carver MD from Last 3 Months Immunizations Immunization Administration Dates Next Due DTP 08/08/1992,199 2,07/05/1989,1988, 9 Hep B, Unspecified 10/21/2002,04/18/2002, 003 [...] Due Date Last Done Comments Hepatitis B Vaccine (1 of 1 - Risk Dialysis 4-dose series) 10/22/2003 10/21/2002, 04/18/2002, 03/13/2002 Pneumococcal Vaccine: Peds ( 0 to 5 Years) and At-Risk Patients (6 to 49 Years) (1 of 2 - PCV) 07/28/2007 Diabetes: Ophthalmology Exam 02/21/2022 Diabetes: Pedal Pulse Checked 02/21/2022 Diabetes: Sensory Foot Exam 02/21/2022 Diabetes: Visual Foot Exam 02/21/2022 Diabetes: Hemoglobin A1C 09/04/2024 025, 03/07/2024, 03/06/2024, Additional history exists Influenza Vaccine (Season Ended) 2024 10/01/19 17 Procedures Procedure Name Priority Date/Time Associated Diagnosis Comments HEMOGLOBIN Routine 06/21/2024 3:00 AM EDT COLLECTION DATE (HC) Routine 06/21/2024 3:00 AM EDT HEMOGLOBIN Routine 06/14/2024 3:00 AM EDT COLLECTION DATE (HC) Routine 06/14/2024 3:00 AM EDT LIH (HC) Routine 06/07/2024 3:00 AM EDT CO2, TOTAL Routine 06/07/2024 3:00 AM EDT COLLECTION DATE (HC) Routine 06/07/2024 3:00 AM EDT HEPATITIS B SURFACE ANTIGEN [...] (HC) Routine 04/19/2024 3:00 AM EST LIH (HC) Routine 04/17/2024 3:00 AM EST PHOSPHATE ( PHOSPHORUS) Routine 04/17/2024 3:00 AM EST HEMOGLOBIN Routine 04/17/2024 3:00 AM EST LIH (HC) Routine 04/10/2024 3:00 AM EST KT/V NATURAL LOG, URR (HC) Routine 04/10/2024 3:00 AM EST HEPATITIS B SURFACE ANTIGEN W/REFL CONFIRM Routine 04/05/2024 3:00 AM EST TRANSFERRIN SATURATION Routine 3:00 AM EST PROTEIN, TOTAL, SERUM Routine 04/05/2024 3:00 AM EST ELECTROLYTE PANEL Routine 04/05/2024 3:0 0 AM EST MAGNESIUM Routine 04/05/2024 3:00 AM EST LIH (HC) Routine 04/05/2024 3:00 AM EST LACTATE DEHYDROGENASE [...] Routine 04/05/2024 3:00 AM EST COLLECTION DATE (HC) Routine 04/05/2024 3:00 AM EST CBC AND DIFFERENTIAL Routine 04/05/2024 3:00 AM EST from Last 3 Months Results * Collection Date (06/21/2024 3:00 AM EDT) Only the most recent of5 resultswithin the time period is included. Collection Date See Comment [facility] Comment: Patient sample received may exceed specimen stability, based on the collection date electronically provided. ??When reviewing patient results, verify collection information and consider specimen stability before acting on any critical or panic results. 06/21/2024 3:00 AM EDT us Ed Carver MD LAB HISTORICA [id number] RESULTS Final Result Performing Organization Address [facility] Co de Phone Number APS [facility] [address] [place] [address] * Hemoglobin (06/21/2024 3:00 AM EDT) Only the most recent of5 resultswithin the time period is included. Hgb 11.6 11.2 - 15.7 g/dL [facility] Hemoglobin x 3 34.8 33.6 - 47.1 g/dL [facility] 06/21/2024 3:00 AM EDT 06/24/2024 1:14 PM EDT us Ed Carver MD LAB BLOOD ORDERABLES Final Result Performing Organization Address [facility] de Phone Number APS [facility] [address] [place] [address] * LIH (06/07/2024 3:00 AM EDT) Only the most recent of7 resultswithin the time period is included. Lipemia Normal Normal [facility] Icterus Normal Normal [facility] Hemolysis Normal Normal [facility] 06/07/2024 3:00 AM EDT 06/10/2024 12:19 PM EDT us Ed Carver MD LAB HISTORICA [id number] RESULTS Final Result Performing Organization Address [facility] Co de Phone Number APS [facility] [address] [place] [address] * CO2 (06/07/2024 3:00 AM EDT) Bicarbonate (CO2) 24 21 - 31 mEq/L [facility] 06/07/2024 3:00 AM EDT 06/10/2024 12:19 PM EDT Ed Carver MD LAB BLOOD ORDERABLES Final Result Performing Organization Address [facility] Co de Phone Number APS [facility] [address] [place] [address] * (ABNORMAL) Kt/V Natural Log, URR (06/05/2024 3:00 AM EDT) Only the most recent of4 resultswithin the time period is included. Treatment [...] 12:58 PM EDT Ed Carver MD LAB HISTORICA [id number] RESULTS Final Result Performing Organization Address [facility] Co de Phone Number APS [facility] [address] [place] [address] * (ABNORMAL) Calcium Phosphorus Product, Adjusted (06/05/2024 [...] EDT us Ed Carver MD LAB HISTORICA [id number] RESULTS Final Result Performing Organization Address [facility] de Phone Number [facility]PS [facility] [address] [place] [address] * Hepatitis B Surface Ag w/Reflex Confirmation (06/05/2024 3:00 AM EDT) Only the most recent of3 resultswithin the time period is included. Hep B Surface Antigen Negative Negative [facility] 06/05/2024 3:00 AM EDT 06/06/2024 1:01 PM EDT Ed Carver MD LAB BLOOD ORDERABLES Final Result Performing Organization Address [facility] de Phone Number APS [facility] [address] [place] [address] * (ABNORMAL) TSAT (06/05/2024 3:00 AM EDT) Only the most recent of3 resultswithin the time period is included. Iron 52 50 - 170 ug/dL [facility] Transferrin 198(L) 250 - 380 mg/dL [facility] TIBC 277 211 - 406 ug/dL [facility] Iron Saturation (TSat) 19(L) 22 - 52 % [facility] 06/05/2024 3:00 AM EDT 06/06/2024 1:01 PM EDT us Ed Carver MD LAB BLOOD ORDERABLES Final Result Performing Organization Address [facility] Co de Phone Number [facility]PS [facility] [address] [place] [address] * (ABNORMAL) CBC and Differential (06/05/2024 3:00 AM EDT) Only the most recent of3 resultswithin the time period is included. DIFFERENTIAL MANUAL, 2 Not Indicated [facility] White [...] Carver MD LAB BLOOD ORDERABLES Final Result VIDHYA [facility] [address] [place] [address] * (ABNORMAL) ALT (06/05/2024 3:00 AM EDT) Only the most recent of3 resultswithin the time period is included. Pathologist [facility] ALT (SGPT) <7(L) 10 - 49 U/L [facility] 06/05/2024 3:00 AM EDT 06/06/2024 1:01 PM EDT us Ed Carver MD LAB BLOOD ORDERABLES Final Result Performing Organization Address [facility] Co de Phone Number APS [facility] [address] [place] [address] * AST (06/05/2024 3:00 AM EDT) Only the most recent of3 resultswithin the time period is included. AST (SGOT) 22 <34 U/L [facility] 06/05/2024 3:00 AM EDT 06/06/2024 1:01 PM EDT Ed Carver MD LAB BLOOD ORDERABLES Final Result Performing Organization Address [facility] de Phone Number APS [facility] [address] [place] [address] * Protein, total (06/05/2024 3:00 AM EDT) Only the most recent of3 resultswithin the time period is included. Total Protein 7.7 6.4 - 8.9 g/dL [facility] 06/05/2024 3:00 AM EDT 06/06/2024 1:01 PM EDT Ed Carver MD LAB BLOOD ORDERABLES Final Result Performing Organization Address [facility] Co de Phone Number APS [facility] [address] [place] [address] * (ABNORMAL) Alkaline phosphatase (06/05/2024 3:00 AM EDT) Only the most recent of3 resultswithin the time period is included. Alkaline Phosphatase 235(H) 46 - 116 U/L [facility] 06/05/2024 3:00 AM EDT 06/06/2024 1:01 PM EDT us Ed Carver MD LAB BLOOD ORDERABLES Final Result Performing Organization Address [facility] de Phone Number APS [facility] [address] [place] [address] * PTH, Intact (06/05/2024 3:00 AM EDT) Only the most recent of2 resultswithin the time period is included. PTH, Intact 390 160 - 721 pg/mL [facility] Comment: Suggested (KDIGO) ESRD maintenance range is two to nine times the upper normal limit (80.1 pg/mL) for the laboratory. 06/05/2024 3:00 AM EDT 06/06/2024 1:01 PM EDT us Ed Carver MD LAB BLOOD ORDERABLES Final Result Performing Organization Address [facility] de Phone Number APS [facility] [address] [place] [address] * Magnesium (06/05/2024 3:00 AM EDT) Only the most recent of3 resultswithin the time period is included. Magnesium 2.6 1.9 - 2.7 mg/dL [facility] 06/05/2024 3:00 AM EDT 06/06/2024 1:01 PM EDT us Ed Carver MD LAB BLOOD ORDERABLES Final Result Performing Organization Address [facility] de Phone Number [facility] [address] [place] [address] * Lactate dehydrogenase (06/05/2024 3:00 AM EDT) Only the most recent of3 resultswithin the time period is included. LDH 232 120 - 246 U/L [facility] 06/05/2024 3:00 AM EDT 06/06/2024 1:01 PM EDT us Ed Carver MD LAB BLOOD ORDERABLES Final Result Performing Organization Address [facility] Co de Phone Number [facility]PS [facility] [address] [place] [address] * (ABNORMAL) Hemoglobin A1c (06/05/2024 3:00 AM EDT) Hemoglobin A1C 5.9(H) <5.7 % [facility] Comment: Methodology: Enzymatic HbA1c (NGSP %) ?Suggested Diagnosis >6.4% ? Diabetic 5.7-6.4% ?Pre-Diabetic <5.7% ? Non-Diabetic Diabetic Glucose Control Evaluation: Therapeutic action suggested at >8.0% ADA recommends a glycemic goal of <7.0% 06/05/2024 3:00 AM EDT 06/06/2024 12:58 PM EDT Ed Carver MD LAB BLOOD ORDERABLES Final Result Performing Organization Address [facility] de Phone Number [facility] [address] [place] [address] * (ABNORMAL) Glucose, random (06/05/2024 3:00 AM EDT) Only the most recent of3 resultswithin the time period is included. Glucose 142(H) 74 - 109 mg/dL [facility] 06/05/2024 3:00 AM EDT 06/06/2024 1:01 PM EDT Ed Carver MD LAB BLOOD ORDERABLES Final Result Performing Organization Address [facility] de Phone Number [facility]PS [facility] [address] [place] [address] * Ferritin (06/05/2024 3:00 AM EDT) Only the most recent of3 resultswithin the time period is included. Ferritin 134 10 - 291 ng/mL [facility] 06/05/2024 3:00 AM EDT 06/06/2024 1:01 PM EDT us Ed Carver MD LAB BLOOD ORDERABLES Final Result Performing Organization Address [facility] de Phone Number [facility]PS [facility] [address] [place] [address] * (ABNORMAL) Creatinine, serum (06/05/2024 3:00 AM EDT) Only the most recent of3 resultswithin the time period is included. Creatinine 10.61(H) 0.55 - 1.02 mg/dL [facility] 06/05/2024 3:00 AM EDT 06/06/2024 1:01 PM EDT us Ed Carver MD LAB BLOOD ORDERABLES Final Result Performing Organization Address [facility] Phone Number [facility]PS [facility] [address] [place] [address] * (ABNORMAL) Bilirubin, total (06/05/2024 3:00 AM EDT) Only the most recent of3 resultswithin the time period is included. Total Bilirubin 0.2(L) 0.3 - 1.2 mg/dL [facility] 06/05/2024 3:00 AM EDT 06/06/2024 1:01 PM EDT us Ed Carver MD LAB BLOOD ORDERABLES Final Result Performing Organization Address [facility] de Phone Number [facility]PS [facility] [address] [place] [address] * (ABNORMAL) Lipid panel (06/05/2024 3:00 AM [...] ORDERABLES Final Result [facility] [address] [place] [address] * (ABNORMAL) Electrolyte panel (06/05/2024 3:00 AM [...] BLOOD ORDERABLES Final Result Performing Organization Address [facility]/ZIP Co de Phone Number [facility] [address] [place] [address] * (ABNORMAL) Phosphorus (05/13/2024 3:00 AM EDT) Only the most recent of2 resultswithin the time period is included. Phosphorus, Serum 11.5(H) 2.5 - 5.0 mg/dL [facility] 05/13/2024 3:00 AM EDT 05/14/2024 12:27 PM EDT Ed Carver MD LAB BLOOD ORDERABLES Final Result Performing Organization Address [facility] Co de Phone Number [facility]PS [facility] [address] [place] [address] * Poorly Spun Tube (04/05/2024 3:00 AM EST) Poorly Spun TUBE Post Gold/White [facility] Comment:Received poorly cent rifuged specimen. Unable to perform testing. 04/05/2024 3:00 AM EST Ed Carver MD LAB HISTORICA [id number] RESULTS Final Result Performing Organization Address [facility] Co de Phone Number APS [facility] [address] [place] [address] from Last 3 Months Insurance [facility] ([id number]) [facility] ([id number]) [facility] ([id number]) Care Teams Club Car Attendant Relationship Specialty Start Date End Date Alyssa Manzano DO [address] [place] [address] PCP - General Family Medicine 03/02/21
--- OUTSIDE RECORDS SUMMARY | 2024-07-03 16:13 | XMS_ITS | Encounter Summary ---
Author Organization [facility] [employer] Address [address] [facility] 7t [place] [address] Care Team Providers Care Chemical Inspector Name Role Phone Genevieve Gtz MD Primary Care Pro vider Reason for Visit * Reason Comments Med Change Request Encounter Details Date Type Department Care Team ([facility] st Contact Info) Description 03/15/2023 Refill C [facility] [address] [place], [place] [phone] Genevieve Gtz MD [address] [place], [place] [phone] Benign essential hypertension Social History Tobacco Use Types Packs/Day Years Used Date Smoking Tobacco: Never Smokeless Tobacco: Never Alcohol Use Standard Drinks/Week Comments Never 0 (1 standard drink = 0.6 oz pur e alcohol) Depression Answer Date Recorded Patient Health Questionnaire-9 Score 0 10/12/2022 Housing Stability Answer Date Recorded What is your housing situation today? I have katya reinoso 12/13/[address] you li ve. Do you have problems with any of the following? None of the above 12/13/2022 Food Insecurity Answer Date Recorded Within the past 12 months, y ou worried that your food would run out before you got money to buy more: Never True 12/13/2022 Within the past 12 months,th e food you bought just didn't last and you didn't have enough money to get more: Never True Transportation Answer Date Recorded In the past 12 months, has l ack of transportation kept you from medical appts, meetings, work or from getting things needed for daily living? No 12/13/2022 Utilities Answer Date Recorded In the past 12 months, has t he electric, gas, oil or water company threatened to shut off services in your home? No 12/13/2022 Depression Answer Date Recorded Patient Health Questionnaire-2 [...] Description 08/06/2024 2:15 PM EDT Clinical Support [facility] MED & PEDS [address] [place] [address] Paola Thurston, KIRIT [address] [place] [address] documented as of this encounter Visit Diagnoses Diagnosis Benign essential hypertension Essential hypertension, benign documented in this encounter Additional Health Concerns Assessment Noted Time PHQ-9 Depression Total Score: 0 10/13/19 23 2:37 PM EDT documented as of this encounter Care Teams Chemical Inspector Relationship Specialty Start Date End Date Genevieve Gtz MD [address] [place] [id number] PCP - General Internal Medicine 10/12/22 documented as of this encounter
--- OUTSIDE RECORDS SUMMARY | 2024-07-03 16:13 | XMS_ITS | Encounter Summary ---
Author Organization [employer] Address [address] [facility] 7t [place] [address] Care Team Providers Care Bottom Buffer Name Role Phone Genevieve Gtz MD Primary Care Pro vider Reason for Visit * Reason Onset Date Comments Med Refill 12/19/2023 Encounter Details Date Type Department Care Team ([facility] st Contact Info) Description 12/19/2023 Telephone [facility] MEDICINE [address] [place], [place] [phone] Genevieve Gtz MD [address] [place], [place] [phone] Med Refill Social History Tobacco Use Types [...] encounter Miscellaneous Notes * Telephone Encounter - Clarence Taylor - 12/19/2023 12:34 PM EDT TC from pt requesting medication refill. Medications needing refill: oxyCODONE (Roxicodone) 5 MG immediate release tablet To be sent to: [facility]/pharmacy [address] [place] [address] documented in this encounter Plan of Treatment Upcoming Encounters Date Type Department Care Team (Late st Contact Info) Description 08/06/2024 2:15 PM EDT Clinical Support [facility] [address] [place] [address] Paola Thurston RN [address] [place] [address] documented as of this encounter Goals Goal [...] Time PHQ-9 Depression Total Score: 0 10/23/19 2:23 PM EDT documented as of this encounter Care Teams Bottom Buffer Relationship Specialty Start Date End Date Genevieve Gtz MD [address] [place] [address] PCP - General Internal Medicine 10/12/22 documented as of this encounter
--- OUTSIDE RECORDS SUMMARY | 2024-07-03 16:13 | XMS_ITS | Encounter Summary ---
Author Organization [employer] Address [address] [facility] 7t [place] [address] Care Team Providers Care Geosciences Professor Name Role Phone Genevieve Gtz MD Primary Care Pro vider Reason for Visit * Reason Onset Date Comments Call Back Request 06/15/2023 Encounter Details Date Type Department Care Team ([facility] st Contact Info) Description 06/15/2023 Telephone [facility] MEDICINE [address] [place], [place] [phone] Genevieve Gtz MD [address] [place], [place] [phone] Call Back Request Social History Tobacco Use Types Packs/Day [...] encounter Miscellaneous Notes * Telephone Encounter - Lisa Lowery - 06/15/2023 12:32 PM EDT Tc from pt requesting a call back in regards [employer]CHIT[employer] medication. documented in this encounter Plan of Treatment Upcoming Encounters Date Type Department Care Team (Late st Contact Info) Description 08/06/2024 2:15 PM EDT Clinical Support [facility] MED & PEDS [address] [place] [address] Paola Thurston RN [address] [place] [address] documented as of this encounter Goals Goal Patient Goal Type Associated Problems Recent Progress Patient-Stated? Author Blood Pressure < 140/90 Blood Pressure 129/75(2024 9:08 AM EST) Jaime Vasquez Hemoglobin A1c < 8 Result Component 5.7( 9:45 AM EST) No Jaime Chilel documented as of this encounter Visit Diagnoses Not on filedocumented in this encounter Additional Health Concerns Assessment Noted Time PHQ-9 Depression Total Score: 0 10/13/19 2:37 PM EDT documented as of this encounter Care Teams Geosciences Professor Relationship Specialty Start Date End Date Genevieve Gtz MD [address] [place] [id number] PCP - General Internal Medicine 10/12/22 documented as of this encounter
--- OUTSIDE RECORDS SUMMARY | 2024-07-03 16:13 | XMS_ITS | Encounter Summary ---
Author Organization [employer] Address [address] [place] [address] 7t [place] [address] Care Team Providers Care Vice President Of Advertising Name Role Phone Carolina Hsu Primary Care Provider [phone] Genevieve Gtz MD Primary Care Pro vider Encounter Details Date Type Department Care Team ([facility] Contact Info) Description 09/11/2022 Abstract [facility] MEDICINE [address] [place] [phone] Carolina Hsu FNP [address] [place] [address] [place] [address] Social History Tobacco Use Types Packs/Day Years [...] Description 08/06/2024 2:15 PM EDT Clinical Support [facility]EDS [address] [place] [address] Paola Thurston, KIRIT [address] [place] [address] documented as of this encounter Visit Diagnoses Not on filedocumented in this encounter Care Teams Vice President Of Advertising Relationship Specialty Start Date End Date Carolina Hsu FNP PCP - General Family Medicine 01/16/22 10/11/22 Genevieve Gtz MD [address] [place] [address] PCP - General Internal Medicine 10/12/22 documented as of this encounter
--- OUTSIDE RECORDS SUMMARY | 2024-07-03 16:13 | XMS_ITS | Clinical Summary ---
Author Organization [employer] Address [address] [facility] [address] [place] [address] Care Team Providers Care Target Worker Name Role Phone Genevieve Gtz MD Primary Care Pro vider Allergies Active Allergy Reactions Criticality Noted Date Comments Azithromycin Hives 05/10/2022 Gabapentin Angioedema,Swelling High 04/19/2022 Morphine Itching High 04/18/2019 Penicillins Hives,Rash Medium 05/04/2021 Piperacillin-Tazobactam In Dex Angioedema High 06/13/2021 Other reaction(s): angioedema Tolerates cefazolin Tazobactam Hives 05/04/2021 Tramadol Shortness of breath High 04/19/2022 Vancomycin Anaphylaxis,Angioede ma,Hives,Swelling High 06/13/2021 Tolerates again 05/21Per chart: pt tolerated vanco on 05/18/21 Other Reaction(s): Tightness in throat Medications * This document contains information received from the source organization and may not represent a complete record from that organization. Glutose 45 40 % gel oral gel PLEASE SEE ATTACHED FOR DETAILED DIRECTIONS 12/01/19 24 Active hydrALAZINE (Apresoline) 50 MG tabletIndicatio ns:Benign essential hypertension Take 1 tablet (50 mg) by mouth 3 times daily. 270 tablet 01/02/20 24 Active carvedilol (Coreg) 12.5 MG tabletIndicatio ns:Benign essential hypertension TAKE 1 TABLET BY MOUTH TWICE A DAY 180 tablet 01/02/20 24 Active naloxone (Narcan) 4 mg/0.1 mL nasal sprayIndication s:Chronic wound Administer 1 spray (4 mg) into affected nostril(s) if needed for opioid reversal. May repeat every 2-3 minutes if needed, alternating nostrils, until medical assistance becomes available. 2 each 3 01/02/20 24 2024 Active lidocaine (Lidoderm) 5 % patch APPLY 1 PATCH TOPICALLY DAILY LEAVE ON MOST PAINFUL AREA FOR UP TO 12 HOURS 30 patch 2 01/02/20 Active Blood Pressure kit 1 Device Once per day. 1 kit 01/02/20 Active albuterol 108 (90 Base) MCG/ACT inhaler INHALE 2 PUFFS BY MOUTH EVERY 6 HOURS NEEDED FOR WHEEZING 18 g 1 02/28/19 Active nitroglycerin (Nitrostat) 0.[address] 1 TABLET UNDER THE TONGUE EVERY 5 MINUTES NEEDED FOR CHEST PAIN 90 tablet 02/28/19 25 Active acetaminophen (Tylenol) 325 MG tabletIndicatio ns:Acute on chronic heart failure, unspecified heart failure type (CMS/HCC) TAKE 2 TABLETS BY MOUTH EVERY 4 HOURS IF NEEDED FOR MILD PAIN 120 tablet 2 02/28/19 Active tamsulosin (Flomax) 0.4 MG 24 hr capsule Take 2 capsules by mouth Once per day. 03/04/19 25 Active oxyCODONE (Roxicodone) 5 MG immediate release tabletIndicatio ns:Chronic ulcer of 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 (CMS/HCC),Chron ic wound Take 1 tablet (5 mg) by mouth every 8 (eight) hours if needed for severe pain. 84 tablet 06/21/19 25 Active oxyCODONE (Roxicodone) 5 MG immediate release tabletIndicatio ns:Chronic ulcer of 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 (CMS/HCC),Chron ic wound Take 1 tablet (5 mg) by mouth every 8 (eight) hours if needed for severe pain. Do not start before May 24, 2024. 84 tablet 05/25/19 25 2024 Discontinued(R eorder (will not trigger notification to Pharmacy)) Active Problems Problem Noted Date Diagnosed Date Long-term current use of opiate analgesic 2024 Neurogenic bladder 03/07/2024 Bacteremia due to Pseudomonas 01/03/2024 Infection due to 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 10/23/2023 Seizure 10/23/2023 Opioid dependence with opioid-induced disorder 0 10/23/2023 Blindness of both eyes 10/23/2023 Uncontrolled hypertension 10/23/2023 Systolic CHF 10/23/2023 Nonrheumatic tricuspid valve regurgitation 10/22 Nonrheumatic mitral valve regurgitation 10/23/19 Chronic back pain 10/23/2023 History of penicillin allergy 10/23/2023 Gastroparesis 11/28/2022 Health care maintenance 10/24/2022 Overview (10/24/2022): Pt had bilateral salpingectomy in November 2021 during C section procedure. Pt was counseled on permanent contraceptive procedure prior to procedure and received extensive counseling DM foot ulcer 09/13/2022 Anemia 09/13/2022 ESRD on dialysis 09/13/2022 Elevated troponin 09/13/2022 Chronic ulcer of left foot due to diabetes melli tus 08/26/2022 Overview (06/25/2023): Care managed by wound clinic Assessment & Plan (11/28/2022 1:53 PM EDT): Next appt 10/18/22 Unable to assess wound today in clinic b/c pt declined removing the dressing F/u PRN Depressive disorder 04/19/2022 Overview (04/19/2022): Self-manages. States currently stable. No medications. Asthma 06/13/2021 Overview (06/25/2023): Managed by PCP. WEll controlled. NSTEMI (non-ST elevated myocardial infarction) 0 06/13/2021 Diabetic retinopathy 11/24/2015 Overview (02/16/2022): Care managed by [facility] Obesity 11/24/2015 Anxiety 11/03/2015 Resolved Problems Problem Noted Date Diagnosed Date Resolved Date DVT (deep venous thrombosis) 09/13/2022 10/23/2023 Hospital discharge follow-up 06/01/2022 11/28/2022 Assessment & Plan (06/01/2022 4:41 PM EDT): 05/10 Hospital course: 1. Acute CHF exacerbation likely precipitated by uncontrolled HTN. Treated with IV Lasix and controlling her BP. Symptoms improved. a. Torsemide upon discharge b. Blood pressure medications have been adjusted i. Increased hydralazine to 50 mg BID ii. carvdilol 6.5 mg bid (new) iii. Imdure 30 mb daily (new) iv. Norvasc and nifedipine stopped d/t fluid retention 2. Uncontrolled HTN: suspected that noncompliance is an issue. 3. Controlled insulin dependent DM2 a. A1c 6.0 4. Possible kidney failure? Pharmacist Notes: ? ? Discrepancies: ? Carvedilol listed as a new med, however patient was taking 25mg BID previously. Previous dose 25mg filled 03/29, new dose 6.25mg filled 05/14. This med noted to be omitted from discharge summary last admission. Needs clarification and new rx. ? Hydralazine increased to 50mg BID, however most recent fill is for previous dosing of 10mg BID on 04/03. This is despite a dose increase LAST admission to 25mg TID. Needs clarification and new rx. Encounters Date Type Department Care Team Description 06/20/[address] [facility] [address] [place] [address] Paola Thurston, borematic operator ulcer of 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 ([facility]/HCC); Chronic wound 06/20/2024 Telephone [facility] [address] [place] [address] Genevieve Gtz MD Med Refill 05/25/2024 Orders Only [facility] External Provider, [facility] 05/22/2024 Refill [facility] [address] [place] [address] Genevieve Gtz MD Chronic ulcer of 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 (CMS/HCC); Chronic wound 04/30/2024 3:15 PM EST Clinical Support [facility] [address] [place] [address] Paola Thurston RN Long-term current use of opiate analgesic 04/30/2024 Travel 04/24/2024 Telephone [facility] [address] [place] [address] Charlotte Pinedo RN Appointment Confirmation 04/21/2024 Refill [facility] [address] [place] [address] Genevieve Gtz MD Chronic ulcer of 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 (CMS/HCC); Chronic wound from Last 3 Months Immunizations Name Administration Dates Next Due DTP 08/08/1992, 2,07/05/1989,1988,1988 Hep B, Unspecified 10/21/2002,04/18/2002, 003 IPV 08/08/1992, 2,07/05/1989,1988,1988 Influenza injectable quadriv alent preservative free 09/30/2016 Influenza, IIV3, injectable 09/30/2016, 2 MMR 07/15/1995,03/25/1989 Td (adult), unspecified 03/13/2002 Tdap 06/27/2012,06/24/2012 Family History Medical History Relation Name Comments heart dx, DM2 Mother unspecified maliancy Sister Relation Name Status Comments Mother Sister Social History Tobacco Use Types Packs/Day Years Used Date Smoking Tobacco: Never Smokeless Tobacco: Never Tobacco Cessation:Counseling Given: Not Answered Alcohol Use Standard Drinks/Week Comments Never 0 [...] Orientation Straight 12/26/2021 10 :16 AM EDT Last Filed Vital Signs Vital Sign Reading Time Taken Comments Blood Pressure 129/75 03/07/2024 9:08 AM EST Pulse 95 03/07/2024 9:08 AM EST Temperature 36.4 ??C (97.6 ??F) 03/07/2024 9:08 AM ES T Respiratory Rate 18 03/07/2024 9:08 AM EST Oxygen Saturation 100% 03/07/2024 9:08 AM EST Inhaled Oxygen Concentration - - Weight 77.6 kg (171 lb) 03/07/2024 9:08 AM EST Height 170.2 cm (5' 7 ) 03/07/2024 9:08 AM EST Body Mass Index 26.78 03/07/2024 9:08 AM EST Plan of Treatment Upcoming Encounters Date Type Department Care Team ([facility] st Contact Info) Description 08/06/2024 2:15 PM EDT Clinical Support [facility] [address] [place] [address] Paola Thurston, RN [address] [place] [address] Health Maintenance Due Date Last Done Comments Diabetes: Foot Exam 1998 Eye Exam 1998 Alcohol/Substance Use Screening 2000 Family Planning (PISQ) 07/28/2003 Diabetes: Urine Protein Screening 07/28/2007 Pneumococcal Vaccine: Pediatrics (0 to 5 Years) and At-Risk Patients (6 to 49) Years) (1 of 2 - PCV) 07/28/2007 Pap Smear 2009 Cervical Cancer Screening 2018 HPV/Cotest 2018 DTaP/Tdap/Td Vaccines (8 - Td or Tdap) 06/27/2022 06/27/2012, 06/24/2012, 03/13/2002, Additional history exists COVID-19 Vaccine ( season) 2023 07/16/2020, 06/18/2020 Influenza Vaccine (#1) 2023 7, 09/30/2016, 12/06/2011, Additional history exists SDOH Screening 09/19/2024 09/20/2023 Depression Screening 10/22/2024 10/23/2023, 10/23/19 24 Diabetes: Hemoglobin A1C 12/05/2024 025, 03/07/2024, 03/06/2024, Additional history exists Lipid Panel 03/07/2025 03/07/2024 Tobacco Screening 03/07/2025 03/07/2024 Zoster Vaccines (1 of 2) 2038 RSV Patients and Patients Aged 60 years or older (1 - 1-dose 75+ series) 07/28/2063 IPV Vaccines Completed 08/08/1992, 12/28, 07/05/1989, Additional history exists Hepatitis B Vaccines Completed 10/21/2002, 04/18/2002, 03/13/2002 HIV Screening Completed 03/07/2024 Hepatitis C Screening Completed 03/07/2024 HIB Vaccines Aged Out No longer eligi ble based on patient's age to complete this topic HPV Vaccines Aged Out No longer eligi ble based on patient's age to complete this topic Hepatitis A Vaccines Aged Out No long er eligible based on patient's age to complete this topic Meningococcal Vaccine Aged Out No angel lizette eligible based on patient's age to complete this topic RSV under 20 months Aged Out No longe r eligible based on patient's age to complete this topic Rotavirus Vaccines Aged Out No longer eligible based on patient's age to complete this topic Goals Goal Patient Goal Type Associated Problems Recent Progress Patient-Stated? Author Blood Pressure < 140/90 Blood Pressure 129/75(2024 9:08 AM EST) No Jaime Chilel Hemoglobin A1c < 8 Result Component 5.7( 9:45 AM EST) No Jaime Chilel Procedures Procedure Name Priority Date/Time Associated Diagnosis Comments IR US GUIDE VENOUS ACCESS Routine 06/03/2024 12:30 PM EDT IR CVC INSERT CENTRAL TUNNEL Routine 06/03/2024 12:30 PM EDT IR CVC REMOV TUNNEL WO PRT/REPRESENTATIVE GOVERNMENT RELATIONS Routine 05/30/2024 11:00 AM EDT HEPATITIS C AB W/REFL TO HCV RNA, QN, PCR Routine 03/07/2024 9:45 AM EST Annual physical exam HIV 1/2 ANTIGEN/ANTIBODY, FOURTH GENERATION W/RFL Routine 03/07/2024 9:45 AM EST Annual physical exam HEMOGLOBIN A1C Routine 03/07/2024 9:45 AM EST Annual physical exam LIPID PANEL, STANDARD Routine 03/07/2024 9:45 AM EST Annual physical exam from Last 3 Months or Most Recently Relevant to Health Maintenance Results * IR US Guide - Venous Access (06/03/2024 12:30 PM EDT) Anatomical Region Laterality Modality X-Ray Angiograph y 06/03/2024 12:3 0 PM EDT Narrative 06/05/2024 7:41 AM EDT ? [facility] ?[address] ?[place] [address] ?Interventional Radiology Rpt ? Signed ? Patient: Brandon,Natalis ?MR#: [id number] ?? [id number] ? : 1990 ?Acct:[id number] ? Age/Sex: 33 / F ?ADM Date: 03/30/25 ? Loc: HO.S3 ?343-1 ? Attending Dr: Scarlet Arora MD ? Ordering Physician: Scarlet Arora MD ?? Date of Service: 06/03/24 ?? Procedure(s): IR us guide venous access ?? Accession Number(s): [id number] ? cc: Scarlet Arora MD; Genevieve Gtz MD ? Ultrasound-guided venous access for tunnel dialysis catheter was ?? dictated with fluoroscopy guided insertion of catheter ? Electronically signed by: ??Cam Garza MD ??06/05/2024 07:38 AM EDT RP ? Dictated By: ?Cam Garza MD ? Signed By: ?<Electronically signed by Cam Garza MD in OV> ?06/05/24 0738 ? DD/ 1230 ? TD/TT: 06/03/24 1342 ? Knot Picker Cloth: RADHA ? Procedure Note Donsim, Image - 06/05/[address] [address] Interventional Radiology Rpt Signed Patient: Danna Taylor#: [id number] : 1990Acct:[id number] Age/Sex: 33 / FADM Date: 05/25/24 Loc: .S3 343-[address]: Scarlet Arora MD Ordering Physician: Scarlet Arora MD Date of Service: 06/03/24 Procedure(s): IR us guide venous access Accession Number(s): [id number] cc: Scarlet Arora MD; Genevieve Gtz MD Ultrasound-guided venous access for tunnel dialysis catheter was dictated with fluoroscopy guided insertion of catheter Electronically signed by: Cma Garza MD 06/05/2024 07:38 AM EDT RP Dictated By: Cam Garza MD Signed By: <Electronically signed by Cam Garza MD in OV> 06/05/24 0738 DD/ 1230 TD/TT: 06/03/24 1342 Knot Picker Cloth: RADHA [facility] External Provider IMG IR PROCEDURES Final Result * IR CVC Insert Central Tunnel (06/03/2024 12:30 PM EDT) Anatomical Region Laterality Modality Body X-Ray Angiograph y 06/03/2024 12:3 0 PM EDT Narrative 06/03/2024 5:04 PM EDT ? [facility] ?[address] ?[place] [address] ?Interventional Radiology Rpt ? Signed ? Patient: Brandon,Natalis ?MR#: [id number] ?? [id number] ? : 1990 ?Acct:[id number] ? Age/Sex: 33 / F ?ADM Date: 03/30/25 ? Loc: HO.S3 ?343-1 ? Attending Dr: Scarlet Arora MD ? Ordering Physician: Scarlet Arora MD ?? Date of Service: 06/03/24 ?? Procedure(s): IR cvc insert central tunnel ?? Accession Number(s): [id number] ? cc: Scarlet Arora MD; Genevieve Gtz MD ? PROCEDURE: ?? IR INSERTION OF TUNNEL CATHETER UNDER ULTRASOUND AND FLUOROSCOPY. ? CLINICAL INFORMATION: ?? Renal failure. Needs images renal dialysis. ? COMPARISON: ?? IR insertion of tunnel catheter 03/03/2024 ? TECHNIQUE: ?? Allowing explaining ultrasound and fluoroscopy-guided placement of ?? right side permacatheter procedure, benefits in risk aerated and ?? consent was obtained. All elements of maximal sterile barrier technique ?? followed including use of cap, mask, sterile gown, sterile gloves, a ?? sterile full body drape and hand hygiene. Also followed skin ?? preparation with 2% chlorhexidine for cutaneous antisepsis, and sterile ?? ultrasound preparation with sterile gel and probe cover when ?? applicable. Preliminary ultrasound imaging was obtained through the ?? right neck and optimal site for puncture along the right neck was ?? marked. 1% lidocaine was inserted puncture site. Under sterile ?? ultrasound guidance a singlewall needle was advanced and right jugular ?? vein are both the clavicle was punctured. After obtaining venous return ?? a thin guidewire was advanced over the needle and needle removed. The ?? guidewire was attached to the drape with hemostats. ? Approximately 1 gauze length away from the right jugular puncture along ?? the right anterior chest wall one percent lidocaine was infiltrated. A ?? small skin incision was performed. 1% lidocaine was then inserted ?? through a long needle from right anterior chest wall to the right neck ?? area in the subcutaneous soft tissues. A tunneler attached to the 14.5 ?? Colombian permacatheter was bluntly tunneled from the right anterior chest ?? wall lesion and pulled through the right neck incision. It was made ?? shoulder cuff was inside the skin. The thin wire in the right jugular ?? vein was exchanged over a small 5 Colombian dilator. A thin wire was ?? removed and a long 0.035 wire was inserted through the 5 Colombian dilator ?? and advanced into the IVC under fluoroscopy. The 5 Colombian dilator was ?? removed and exchanged for a 8 Colombian and a 12 Colombian dilator and the ?? tract was dilated. Subsequently a 14.5 Colombian dilator with below the ?? sheath was inserted over the guidewire and placed in SVC. The ?? permacatheter was then advanced over the peel-away sheath after ?? removing the dilator. The peel-away sheath was removed the ?? permacatheter was held in position. A single image was obtained for ?? documentation of tip of the catheter in the mid SVC. Absorbable 3-0 ?? sutures were placed along the right neck and the right anterior chest ?? wall. The area was cleaned. Both ports of the catheter were flushed ?? with saline. Conscious sedation was utilized during exam and patient ?? monitored by our nursing and IR radiologist for 27 minutes. Patient ?? tolerated procedure extremely well. ? FINDINGS: ?? On preliminary ultrasound imaging there is widely patent right internal ?? jugular vein. ? A 14.5 Colombian glide path permacath 23 cm long was placed with its tip ?? in mid SVC. The catheter is ready for use. ? IR/IR cvc insert central tunnel ?? IMPRESSION: ?? Successful ultrasound and fluoroscopy-guided placement of a right ?? permacatheter. ? Fluoroscopy time: 0.8 minutes. ? Dose: 10.3 mGy. ? Electronically signed by: ??Cam Garza MD ??06/03/2024 05:01 PM EDT RP ? Dictated By: ?Kayla,Cam S MD ? Signed By: ?<Electronically signed by Cam S MD Kayla in OV> ?06/10/24 0832 ? DD/ 1230 ? TD/TT: 06/03/24 1342 ? Knot Picker Cloth: MSM ? Procedure Note Kari Cuba - 06/10/[address] [address] Interventional Radiology Rpt Signed Patient: Danna Taylor#: [id number] : 1990Acct:[id number] Age/Sex: 33 / FADM Date: 05/25/24 Loc: HO.S3 343-[address]: Scarlet Arora MD Ordering Physician: Scarlet Arora MD Date of Service: 06/03/24 Procedure(s): IR cvc insert central tunnel Accession Number(s): [id number] cc: Scarlet Arora MD; Genevieve Gtz MD PROCEDURE: IR INSERTION OF TUNNEL CATHETER UNDER ULTRASOUND AND FLUOROSCOPY. CLINICAL INFORMATION: Renal failure. Needs images renal dialysis. COMPARISON: IR insertion of tunnel catheter 03/03/2024 TECHNIQUE: Allowing explaining ultrasound and fluoroscopy-guided placement of right side permacatheter procedure, benefits in risk aerated and consent was obtained. All elements of maximal sterile barrier technique followed including use of cap, mask, sterile gown, sterile gloves, a sterile full body drape and hand hygiene. Also followed skin preparation with 2% chlorhexidine for cutaneous antisepsis, and sterile ultrasound preparation with sterile gel and probe cover when applicable. Preliminary ultrasound imaging was obtained through the right neck and optimal site for puncture along the right neck was marked. 1% lidocaine was inserted puncture site. Under sterile ultrasound guidance a singlewall needle was advanced and right jugular vein are both the clavicle was punctured. After obtaining venous return a thin guidewire was advanced over the needle and needle removed. The guidewire was attached to the drape with hemostats. Approximately 1 gauze length away from the right jugular puncture along the right anterior chest wall one percent lidocaine was infiltrated. A small skin incision was performed. 1% lidocaine was then inserted through a long needle from right anterior chest wall to the right neck area in the subcutaneous soft tissues. A tunneler attached to the 14.5 Colombian permacatheter was bluntly tunneled from the right anterior chest wall lesion and pulled through the right neck incision. It was made shoulder cuff was inside the skin. The thin wire in the right jugular vein was exchanged over a small 5 Colombian dilator. A thin wire was removed and a long 0.035 wire was inserted through the 5 Colombian dilator and advanced into the IVC under fluoroscopy. The 5 Colombian dilator was removed and exchanged for a 8 Colombian and a 12 Colombian dilator and the tract was dilated. Subsequently a 14.5 Colombian dilator with below the sheath was inserted over the guidewire and placed in SVC. The permacatheter was then advanced over the peel-away sheath after removing the dilator. The peel-away sheath was removed the permacatheter was held in position. A single image was obtained for documentation of tip of the catheter in the mid SVC. Absorbable 3-0 sutures were placed along the right neck and the right anterior chest wall. The area was cleaned. Both ports of the catheter were flushed with saline. Conscious sedation was utilized during exam and patient monitored by our nursing and IR radiologist for 27 minutes. Patient tolerated procedure extremely well. FINDINGS: On preliminary ultrasound imaging there is widely patent right internal jugular vein. A 14.5 Colombian glide path permacath 23 cm long was placed with its tip in mid SVC. The catheter is ready for use. IR/IR cvc insert central tunnel IMPRESSION: Successful ultrasound and fluoroscopy-guided placement of a right permacatheter. Fluoroscopy time: 0.8 minutes. Dose: 10.3 mGy. Electronically signed by: Cam Garza MD 06/03/2024 05:01 PM EDT Dictated By: Cam Garza MD Signed By: <Electronically signed by Cam Garza MD in OV> 06/10/24 0832 DD/ 1230 TD/TT: 06/03/24 1342 Knot Picker Cloth: RADHA [facility] External Provider IMG IR PROCEDURES Edited Result - Final * IR CVC REMOV TUNNEL WO PRT/PM (05/30/2024 11:00 AM EDT) Anatomical Region Laterality Modality X-Ray Angiograph y 05/30/2024 11:0 0 AM EDT Narrative 06/05/2024 9:29 AM EDT ? [facility] ?[address] ?[place] [address] ?Interventional Radiology Rpt ? Signed ? Patient: Brandon,Natalis ?MR#: [id number] ?? [id number] ? : 1990 ?Acct:[id number] ? Age/Sex: 33 / F ?ADM Date: 03/30/25 ? Loc: HO.S3 ?343-1 ? Attending Dr: Scarlet Arroa MD ? Ordering Physician: Scarlet Arora MD ?? Date of Service: 05/30/24 ?? Procedure(s): IR cvc remov tunnel wo prt/room clerk ?? Accession Number(s): [id number] ? cc: Scarlet Arora MD; Genevieve Gtz MD ? Permacath was removed by Jaime Garcia/JOVON. No conscious sedation was ?? involved. Patient tolerated procedure extremely well. ? Electronically signed by: ??Cam Garza MD ??06/10/2024 09:00 AM EDT RP ?? Workstation: [employer] ? IR/IR cvc remov tunnel wo prt/room clerk ?? IMPRESSION: ?? Successful ultrasound and fluoroscopy-guided placement of a right ?? permacatheter. ? Fluoroscopy time: 0.8 minutes. ? Dose: 10.3 mGy. ? Electronically signed by: ??Cam Garza MD ??06/03/2024 05:01 PM EDT RP ?? Workstation: [employer] ? Dictated By: ?Cam Garza MD ? Signed By: ?<Electronically signed by Cam Garza MD in OV> ?06/10/24 0900 ? DD/ 1100 ? TD/TT: 05/30/24 1159 ? Knot Picker Cloth: MSM ? Procedure Note Kari Cuba - 06/10/2024 [place] [address] Interventional Radiology Rpt Signed Patient: Danna Taylor#: [id number] : 1990Acct:[id number] Age/Sex: 33 / FADM Date: 05/25/24 Loc: HO.S3 343-[address]: Scarlet Arora MD Ordering Physician: Scarlet Arora MD Date of Service: 05/30/24 Procedure(s): IR cvc remov tunnel wo prt/room clerk Accession Number(s): [id number] cc: Scarlet Arora MD; Genevieve Gtz MD Permacath was removed by Jaime Garcia/JOVON. No conscious sedation was involved. Patient tolerated procedure extremely well. Electronically signed by: Cam Garza MD 06/10/2024 09:00 AM EDT RP IR/IR cvc remov tunnel wo prt/room clerk IMPRESSION: Successful ultrasound and fluoroscopy-guided placement of a right permacatheter. Fluoroscopy time: 0.8 minutes. Dose: 10.3 mGy. Electronically signed by: Cam Garza MD 06/03/2024 05:01 PM EDT RP Dictated By: Cam Garza MD Signed By: <Electronically signed by Cam Garza MD in OV> 06/10/24 0900 DD/ 1100 TD/TT: 05/30/24 1159 Knot Picker Cloth: RADHA [facility] External Provider IMG IR PROCEDURES Edited Result - Final * Hepatitis C Antibody with Reflex to HCV, RNA, Quantitative, Real-Time PCR (03/07/2024 9:45 AM EST) Hepatitis C Antibody Nonreactive Nonreactive [facility] Comment:Antibodies to HCV no t detected; does not exclude early acuteHCV infection. Blood Venous blood specimen / Unknown 03/07/2024 9:45 AM EST 03/07/2024 11:34 AM EST Genevieve Casillas MD LAB BLOOD ORDERAB LES Final Result [facility] [address] [place] [phone] * HIV-1/2 Antigen and Antibodies, Fourth Generation, with Reflexes (03/07/2024 9:45 AM EST) HIV AB/AG Nonreactive Nonreactive [facility] Comment:HIV-1 p24 Ag and/or HIV-1/HIV-2 Ab not detected.A test result that is nonreactive does not exclude thepossibility of exposure to or infection with HIV-1 and/orHIV-2. Nonreactive results in this assay for individualswith prior exposure to HIV-1 and/or HIV-2 may be due toantigen and antibody levels that are below the limit ofdetection of this assay.The [employer] HIV Ag/Ab Combo assay result andsupplemental assay results should be interpreted inconjunction with the patient's clinical presentation,history and other laboratory results. If the results areinconsistent with clinical evidence, additional testing issuggested to confirm the result. Blood Venous blood specimen / Unknown 03/07/2024 9:45 AM EST 03/07/2024 11:34 AM EST us Genevieve Casillas MD LAB BLOOD ORDERAB LES Final Result Performing Organization Address [facility] Co de Phone Number [facility] [address] [place] [phone] * Hemoglobin A1c (03/07/2024 9:45 AM EST) Hemoglobin A1c 5.7 <6.0 % [facility] Comment:Hemoglobin A1C Refer ence Range Adults: 4.8 - 6.0 % Non diabetic: < 6.0 % Goal: < 7.0 %Additional Action Suggested: > 8.0 %Note: Hemoglobin A1c results are invalid for patients with abnormal amounts of HbF. Blood transfusions may impact the HbA1c concentration in the patient sample. Estimated Average Glucose 117 mg/dL [facility] Comment:eAG = Estimated ave rage glucose which is %A1C expressed asaverage glucose, using the formula of the L4L-AwyrtalLuzmlhu Glucose study (ADAG), Diabetes Care, Vol.31,#8,Sep. 2007 Blood Venous blood specimen / Unknown 03/07/2024 9:45 AM EST 03/07/2024 11:34 AM EST us Genevieve Casillas MD LAB BLOOD ORDERAB LES Final Result Performing Organization Address [facility] Co de Phone Number [facility] [address] [place] [address] [phone] * (ABNORMAL) Lipid Panel, Standard (03/07/2024 9:45 AM EST) Triglycerides 36 <150 mg/dL [facility] Comment:Desirable Triglyceri de: less than 150 mg/dLBorderline High Triglyceride 150-199 mg/dLHigh Triglyceride: 200-499 mg/dLVery High Triglyceride: greater than or equal to 5OO mg/dL Cholesterol 107 <200 mg/dL [facility] Comment:Desirable Cholestero l: less than 200 mg/dLBorderline High Cholesterol: 200-239 mg/dLHigh Cholesterol: greater than 239 mg/dL LDL Cholesterol Calculated 65 <100 mg/dL [facility] Comment:Desirable LDL: less than 100 mg/dLNear Optimal/Above Optimal LDL: 110- 129 mg/dLBorderline High LDL: 130-159 mg/dLHigh LDL: 160-189 mg/dLVery High LDL: greater than or equal to 190 mg/dL HDL Cholesterol 35(L) >40 mg/dL [facility] Comment:Desirable HDL: great er than 40 mg/dL Note: This HDL assay may give artificially low results in patients with liver disease. Blood Venous blood specimen / Unknown 03/07/2024 9:45 AM EST 03/07/2024 11:34 AM EST us Genevieve Casillas MD LAB BLOOD ORDERAB LES Final Result [facility] [address] [place] [phone] from Last 3 Months or Most Recently Relevant to Health Maintenance Insurance [employer] < [address] [place] [id number] Care Teams Target Worker Relationship Specialty Start Date End Date Genevieve Gtz MD [address] [place] [phone] PCP - General Internal Medicine 10/12/22
--- OUTSIDE RECORDS SUMMARY | 2024-07-03 16:13 | XMS_ITS | Encounter Summary ---
Author Organization [employer] Address [address] [facility] 7t [place] [address] Care Team Providers Care Help Desk Manager Name Role Phone Genevieve Gtz MD Primary Care Pro vider Encounter Details Date Type Department Care Team (Late st Contact Info) Description 01/21/2024 Telephone [facility] MEDICINE [address] [place], [place] [phone] Genevieve Gtz MD 230 [place], [place] [phone] Social History Tobacco Use Types Packs/Day Years [...] * Telephone Encounter - Armida Gómez - 01/21/2024 1:31 PM EST Tc from pt requesting a status on med Oxycodone 5mg , pt requests a callback [phone] documented in this encounter Plan of Treatment Upcoming Encounters Date Type Department Care Team (Late st Contact Info) Description 08/06/2024 2:15 PM EDT Clinical Support [facility] MED & PEDS 505 [place] [address] Paola Thurston, KIRIT 505 [place] [address] documented as of this encounter Goals Goal [...] documented as of this encounter Care Teams Help Desk Manager Relationship Specialty Start Date End Date Genevieve Gtz MD [address] [place] [address] PCP - General Internal Medicine 10/12/22 documented as of this encounter
--- OUTSIDE RECORDS SUMMARY | 2024-07-03 16:13 | XMS_ITS | Encounter Summary ---
Author Organization [employer] Address 75 [facility] 7t [place] [address] Care Team Providers Care Anesthesiology Physician Assistant Name Role Phone Genevieve Gtz MD Primary Care Pro vider Reason for Visit * Reason Onset Date Comments Med Refill 06/20/2024 Encounter Details Date Type Department Care Team ([facility] st Contact Info) Description 06/20/2024 Telephone [facility] MEDICINE 230 [place], [place] [phone] Genevieve Gtz MD 230 [place], [place] [phone] Med Refill Social History Tobacco Use Types [...] encounter Miscellaneous Notes * Telephone Encounter - Brian Kenny - 06/20/2024 12:35 PM EDT TC from pt requesting medication refill. Medications needing refill : oxyCODONE (Roxicodone) 5 MG immediate release tablet To be sent to: [facility]/pharmacy #[id number] [place] [address] documented in this encounter Plan of Treatment Upcoming Encounters Date Type Department Care Team (Late st Contact Info) Description 08/06/2024 2:15 PM EDT Clinical Support [facility] MED & PEDS 505 [place] [address] Paola Thurston RN 505 [place] [address] documented as of this encounter Goals Goal [...] documented as of this encounter Care Teams Anesthesiology Physician Assistant Relationship Specialty Start Date End Date Genevieve Gtz MD [address] [place] [phone] PCP - General Internal Medicine 10/12/22 documented as of this encounter
--- OUTSIDE RECORDS SUMMARY | 2024-07-03 16:13 | XMS_ITS | Encounter Summary ---
Author Organization [employer] Address [address] [place] [address] 7t [place] [address] Care Team Providers Care Shell Maker Lockstitch Name Role Phone Carolina Hsu Primary Care Provider [phone] Genevieve Gtz MD Primary Care Pro vider Reason for Visit * Reason Onset Date Comments Med Refill 07/28/2022 Encounter Details Date Type Department Care Team ([facility] st Contact Info) Description 07/28/2022 Telephone [facility] MEDICINE [address] [place] [phone] Carolina Hsu FNP [address] [place] [address] [place] [address] Med Refill Social History Tobacco Use Types [...] encounter Miscellaneous Notes * Telephone Encounter - Alyssa Hale LPN - 07/28/2022 2:24 PM EDT Please review request medications are from hospital and note from 06/15/22 states multiple discrepancies. Next appointment is 08/31/22. * Telephone Encounter - Alyse Gonzalez - 07/28/2022 1:52 PM EDT Tc from pt requesting medication refill for acetaminophen (Tylenol) 325 MG tablet, carvedilol (Coreg) 12.5 MG tablet, HYDROmorphone (Dilaudid) 2 MG tablet, torsemide (Demadex) 20 MG tabletisosorbide mononitrate ER (Imdur) 30 MG 24 hr tablet, NIFEdipine XL (Procardia XL) 60 MG 24 hr tablet documented in this encounter Plan of Treatment Upcoming Encounters Date Type Department Care Team (Late st Contact Info) Description 08/06/2024 2:15 PM EDT Clinical Support [facility] MED & PEDS [address] [place] [address] Paola Thurston RN 505 [place] [address] documented as of this encounter Visit Diagnoses Diagnosis Acute on chronic heart failure, unspecified heart failure type (CMS/HCC)- Primary Benign essential hypertension Essential hypertension, benign documented in this encounter Care Teams Shell Maker Lockstitch Relationship Specialty Start Date End Date Carolina Hsu FNP PCP - General Family Medicine 01/16/22 10/11/22 Genevieve Gtz MD [address] [place] [phone] PCP - General Internal Medicine 10/12/22 documented as of this encounter
--- OUTSIDE RECORDS SUMMARY | 2024-07-03 16:13 | XMS_ITS | Encounter Summary ---
Author Organization [employer] Address [address] [facility] 7t [place] [address] Care Team Providers Care Sports Media Name Role Phone Genevieve Gtz MD Primary Care Pro vider Reason for Visit * Reason Onset Date Comments Med Refill 06/21/2023 Encounter Details Date Type Department Care Team (Late st Contact Info) Description 06/21/2023 Telephone [facility] MEDICINE 230 [place], [place] [phone] Genevieve Gtz MD 230 [place], [place] [phone] Med Refill Social History Tobacco Use Types [...] encounter Miscellaneous Notes * Telephone Encounter - Alyse Gonzalez - 06/21/2023 11:26 AM EDT TC from pt requesting medication refill. [place] from [place] Medications needing refill : oxyCODONE (Roxicodone) 5 MG immediate release tablet To be sent to: [facility]/pharmacy #[id number] [place], [place] - [address] [place] [address] documented in this encounter Plan of Treatment Upcoming Encounters Date Type Department Care Team ([facility] st Contact Info) Description 08/06/2024 2:15 PM EDT Clinical Support [facility] MED & PEDS 505 [place] [address] Paola Thurston, RN 505 [place] [address] documented as of this encounter Goals Goal [...] documented as of this encounter Care Teams Sports Media Relationship Specialty Start Date End Date Genevieve Gtz MD [address] [place] [phone] PCP - General Internal Medicine 10/12/22 documented as of this encounter
--- OUTSIDE RECORDS SUMMARY | 2024-07-03 16:13 | XMS_ITS | Encounter Summary ---
Author Organization [employer] Address 75 [facility] 7t [place] [address] Care Team Providers Care Product Development Specialist Name Role Phone Genevieve Gtz MD Primary Care Pro vider Reason for Visit * Reason Comments Med Refill Encounter Details Date Type Department Care Team (Late st Contact Info) Description 08/26/2023 Refill [facility] MED & PEDS [address] [place], [place] [phone] Genevieve Gtz MD 230 [place], [place] [phone] Benign essential hypertension Social History Tobacco Use [...] Description 08/06/2024 2:15 PM EDT Clinical Support [facility] MED & PEDS 505 [place] [address] Paola Thurston, KIRIT 505 [place] [address] documented as of this encounter Goals Goal [...] documented as of this encounter Care Teams Product Development Specialist Relationship Specialty Start Date End Date Genevieve Gtz MD [address] [place] [phone] PCP - General Internal Medicine 10/12/22 documented as of this encounter
--- OUTSIDE RECORDS SUMMARY | 2024-07-03 16:13 | XMS_ITS | Clinical Summary ---
Author Organization [facility] Address [address] [place] [address] Care Team Providers Care Menagerie Superintendent Name Role Phone Unavailable Primary Care Provider Unavailabl e Allergies Active Allergy Reactions Criticality Noted Date Comments Morphine Unknown/Patient and Family Unable to Define Medium 01/06/2022 Penicillins Unknown/Patient and Family Unable to Define Medium 01/06/2022 Piperacillin-Tazobacta m In Dex Angioedema High 06/13/2021 Other reaction(s): angioedema Vancomycin Unknown/Patient and Family Unable to Define Medium 01/06/2022 Medications oxyCODONE (OXY-IR) 5 MG capsule Take 1 [...] skin nightly. Active carvedilol (COREG) 12.5 MG tabletIndicatio ns:Hypertensive emergency,Heart failure (HCC) Take 1 tablet (12.5 mg total) by mouth 2 (two) times a day with meals. 60 tablet 01/10/2022 Active amLODIPine (NORVASC) 5 MG tabletIndicatio ns:Hypertensive emergency,Heart failure (HCC) Take 1 tablet (5 mg total) by mouth daily. Do not start before January 11, 2022. 30 tablet 01/11/2022 Active isosorbide dinitrate (ISORDIL) 30 MG tabletIndicatio ns:Hypertensive emergency,Heart failure (HCC) Take 1 tablet (30 mg total) by mouth 3 (three) times a day in the morning, mid-day and early evening. 90 tablet 01/10/2022 Active hydrALAZINE (APRESOLINE) 50 MG tabletIndicatio ns:Hypertensive emergency,Heart failure (HCC) Take 1 tablet (50 mg total) by mouth 3 (three) times a day. 90 tablet 01/10/2022 Active Active Problems Problem Noted Date Diagnosed Date Hypertensive urgency 01/08/2022 MYNOR (acute kidney injury) 01/08/2022 Acute on chronic heart failure 01/06/2022 Immunizations Immunization Administration Dates Next Due Influenza Inactivated/Split Preservative [...] more drinks on one occasion? Never 01/06/2022 Comments Unknown Sex and Gender Information Value Date Recorded Sex Assigned at Not on file Legal Sex Female 6:34 PM EST Gender Identity Not on file [...] PCV) 07/28/2007 Pap Smear (Ages 21-65) 2009 COVID-19 Vaccine (3 2023-2 5 season) 2023 07/16/2020, 06/18/2020 Influenza Vaccine 09/26/2024 09/30/2016, 12/06/2011 HIV Screening Completed 01/09/2022 Hepatitis C Virus [...] 0.79 S/CO ratio 01/10/2022 10:39 AM EST [employer] Hepatitis C Antibody Interpretation Nonreactive Nonreactive 01/10/2022 10:39 AM EST [employer] Blood specimen (specimen) (Plasma/Serum) 01/09/2022 8:34 AM EST 01/09/2022 9:21 AM EST us Jaziel B Post MD LAB BLOOD ORDERABLES Final Resu lt HOSPITAL [facility] [address] [employer] [place] [phone] * HIV 1/2 Ag/Ab CMIA Reflex to Confirmation (01/09/2022 8:34 AM EST) HIV 1/2 Ag/Ab CMIA Nonreactive Nonreactive 01/10/2022 10:39 AM EST [facility] Comment: Results show no evidence of infection by HIV 1/2. If clinically indicated, repeat CMIA or test by nucleic acid amplification. HIV 1/2 Antigen/Antibody CMIA reflex to confirmation AND HIV-1 RNA viral load recommended in patients who are taking or have recently taken PrEP. Blood specimen (specimen) Serum specimen / Unknown 01/09/2022 8:34 AM EST 01/09/2022 9:21 AM EST us Jaziel Burgess Post LAB BLOOD ORDERABLES Final Resu lt [facility] [facility] [address] [place] [address] from Last 3 Months or Most Recently Relevant to Health Maintenance Insurance [employer] MGD MEDICARE OUT OF NETWORK Advance Directives * Full Code (Latest Code Status on File) Date Activated Date Inactivated Comments 01/06/2022 5:00 AM Question Answer Comments Decision Thoroughly Discussed with: Unable to Di scuss
--- OUTSIDE RECORDS SUMMARY | 2024-07-03 16:13 | XMS_ITS | Encounter Summary ---
Author Organization [employer] Address [address] [facility] 7t [place] [address] Care Team Providers Care Attorney Name Role Phone Genevieve tGz MD Primary Care Pro vider Reason for Visit * Reason Onset Date Comments Med Refill 01/14/2024 Encounter Details Date Type Department Care Team ([facility] st Contact Info) Description 01/14/2024 Telephone [facility] MEDICINE 230 [place], [place] [phone] Genevieve Gtz MD 230 [place], [place] [phone] Med Refill Social History Tobacco Use Types [...] * Telephone Encounter - Clarence Taylor - 01/21/2024 2:52 PM EST Tc from pt calling in regards to message prior stating medication was never sent. If any questions you can contact pt at [phone]. * Telephone Encounter - Noelle Rodrigues - 01/14/2024 11:29 AM EST TC from pt requesting medication refill. Medications needing refill : oxyCODONE (Roxicodone) 5 MG immediate release tablet To be sent to: [facility]/pharmacy #[id number] [place] [address] documented in this encounter Plan of Treatment Upcoming Encounters Date Type Department Care Team (Late st Contact Info) Description 08/06/2024 2:15 PM EDT Clinical Support [facility] MED & PEDS 505 [place] [address] Paola Thurston, KIRIT 505 [place] [address] documented as of this encounter Goals Goal [...] documented as of this encounter Care Teams Attorney Relationship Specialty Start Date End Date Genevieve Gtz MD [address] [place] [phone] PCP - General Internal Medicine 10/12/22 documented as of this encounter
--- OUTSIDE RECORDS SUMMARY | 2024-07-03 16:13 | XMS_ITS | Encounter Summary ---
Author Organization [employer] Address [address] [place] [address] 7t [place] [address] Care Team Providers Care Claims Specialist Name Role Phone Genevieve Gtz MD Primary Care Pro vider Reason for Visit * Reason Onset Date Comments Med Refill 10/26/2022 Encounter Details Date Type Department Care Team (Late st Contact Info) Description 10/26/[address] [facility] MEDICINE 230 [place], [place] [phone] Genevieve Gtz MD 230 [place], [place] [phone] Med Refill Social History Tobacco Use Types [...] * Telephone Encounter - Magui Thompson - 10/26/2022 3:03 PM EDT Tc from patient requesting a med refill for medication oxycodone 5 mg. Please send to [facility]/pharmacy #[id number] - [place], [place] - [address] [place] [address] Cool documented in this encounter Plan of Treatment Upcoming Encounters Date Type Department Care Team (Late st Contact Info) Description 08/06/2024 2:15 PM EDT Clinical Support [facility] CHC MED & PEDS 505 [place] [address] Paola Thurston, RN 505 [place], [place] documented as of this encounter Visit Diagnoses Not on filedocumented in this encounter Additional Health Concerns Assessment Noted Time PHQ-9 Depression Total Score: 0 10/13/19 2:37 PM EDT documented as of this encounter Care Teams Claims Specialist Relationship Specialty Start Date End Date Genevieve Gtz MD [address] [place] [address] PCP - General Internal Medicine 10/12/22 documented as of this encounter
--- OUTSIDE RECORDS SUMMARY | 2024-07-03 16:13 | XMS_ITS | Encounter Summary ---
Author Organization [email or web address] Address [address] [facility] 7t [place] [address] Care Team Providers Care A And P Technician Name Role Phone Genevieve Gtz MD Primary Care Pro vider Reason for Visit * Reason Onset Date Comments Med Refill 01/08/2023 Encounter Details Date Type Department Care Team (Late st Contact Info) Description 01/08/2023 Telephone [facility] MEDICINE 230 [place], [place] [phone] Genevieve Gtz MD 230 [place], [place] [phone] Med Refill Social History Tobacco Use Types [...] * Telephone Encounter - Lisa Lowery - 01/08/2023 9:38 AM EST Tc from pt requesting med refill on; oxyCODONE (Roxicodone) 5 MG immediate release tablet documented in this encounter Plan of Treatment Upcoming Encounters Date Type Department Care Team ([facility] st Contact Info) Description 08/06/2024 2:15 PM EDT Clinical Support [facility] MED & PEDS 505 [place] [address] Paola Thurston, KIRIT 505 [place] [address] documented as of this encounter Visit Diagnoses Not on filedocumented in this encounter Additional Health Concerns Assessment Noted Time PHQ-9 Depression Total Score: 0 10/13/19 23 2:37 PM EDT documented as of this encounter Care Teams A And P Technician Relationship Specialty Start Date End Date Genevieve Gtz MD [address] [place] [address] PCP - General Internal Medicine 10/12/22 documented as of this encounter
--- OUTSIDE RECORDS SUMMARY | 2024-07-03 16:13 | XMS_ITS | Encounter Summary ---
Author Organization [employer] Address 75 [facility] 7t [place] [address] Care Team Providers Care Business Control Manager Name Role Phone Genevieve Gtz MD Primary Care Pro vider Reason for Visit * Reason Onset Date Comments Med Refill 12/05/2023 Encounter Details Date Type Department Care Team ([facility] st Contact Info) Description 12/05/2023 Telephone [facility] MEDICINE 230 [place], [place] [phone] Genevieve Gtz MD 230 [place], [place] [phone] Med Refill Social History Tobacco Use Types [...] * Telephone Encounter - Clarence Taylor - 12/05/2023 11:11 AM EDT TC from pt requesting medication refill. Medications needing refill: oxyCODONE (Roxicodone) 5 MG immediate release tablet To be sent to: [facility]/pharmacy #[id number] [place] [address] documented in this encounter Plan of Treatment Upcoming Encounters Date Type Department Care Team (Late st Contact Info) Description 08/06/2024 2:15 PM EDT Clinical Support [facility] CH[facility] MED & PEDS 505 [place] [address] Paola Thurston RN 505 [place] [address] documented as of this encounter Goals Goal [...] documented as of this encounter Care Teams Business Control Manager Relationship Specialty Start Date End Date Genevieve Gtz MD [address] [place] [phone] PCP - General Internal Medicine 10/12/22 documented as of this encounter
[2024-07-03 16:50] LABS: Basophils Percent Auto 0.9 % (0-2); Eosinophils Absolute Auto 0.2 X10*3/uL (0.0-0.4); Eosinophils Percent Auto 3.6 % (0-4); Hematocrit 35.8 % (37.0-47.0); Hemoglobin 12.1 g/dl (12.0-16.0); Imm Gran Abs Auto 0.02 X10*3/uL (0.00-0.03); Imm Gran Pct Auto 0.5 % (0.0-0.4); Lymphocytes Absolute Auto 0.6 X10*3/uL (1.2-4.9); Lymphocytes Percent Auto 14.3 % (20-40); MANUAL DIFF FLAG SCAN; Mean Corpuscular HGB Conc 33.8 g/dl (31.0-35.0); Mean Corpuscular Hemoglobin 28.5 pg (27.0-33.0); Mean Corpuscular Volume 84.2 fL (80.0-98.0); Mean Platelet Volume 10.8 fL (9.4-12.3); Monocytes Absolute Auto 0.6 X10*3/uL (0.1-1.2); Monocytes Percent Auto 13.1 % (2-11); Neutrophils Percent Auto 67.6 % (45-73); PLT CLUMP 1; Red Blood Count 4.25 X10*6/uL (4.20-5.50); Red Cell Distribution Width 16.1 % (11.0-16.0); SCAN SMEAR FLAG 1
[2024-07-03 16:57] LABS: Alanine Aminotransferase < 6 U/L (0-31); Alkaline Phosphatase 167 U/L (39-117); Anion Gap 16 (12-20); Aspartate Amino Transferase 28 U/L (5-31); Bilirubin Total 0.7 mg/dL (0.0-1.0); Blood Urea Nitrogen 34 mg/dL (9-16); Calcium 9.2 mg/dL (8.4-10.2); Carbon Dioxide 26 mmol/L (22-29); Chloride 97 mmol/L (96-108); Creatinine Clr Calc Pharmacy 13.7; Estimated Glomerular Filt Rate 9; Glucose Random 145 mg/dL (60-115); Potassium 3.8 mmol/L (3.3-5.1); Sodium 135 mmol/L (135-145); Total Protein 8.7 g/dL (6.5-8.0)
[2024-07-03 17:25] LABS: PLT ABN DIST 1
[2024-07-03 17:26] LABS: Platelet Count 97 X10*3/uL (160-400); White Blood Count 4.4 X10*3/uL (4.8-10.8)
[2024-07-03 17:46] LABS: SLIDE REVIEW VERIFIED
--- NOTE | 2024-07-03 18:07 | ED_ITS ---
HPI - Syncope General Chief Complaint: Syncope Stated Complaint: ALTERED AT DIALYSIS PER EMS Time Seen by Provider: 07/03/24 17:02 Source: patient, EMS and old records reviewed Mode of arrival: EMS Limitations: no limitations History of Present Illness ED Provider: ROCHELLE CARRION narrative: 33 yo female with PMH of ESRD on HD S, DM with retinopathy and blindness, PAD s/p bilateral TMA, HTN, respiratory failure on chronic O2 - 3 to 4L NC, CHF, mood disorder, opiate use disorder, bacteremia - MSSA, pseudomonas. She tells me for 1 week she has had n/v daily and lower abdominal pain. She states she went to HD today had the full amount and syncopized x 3 - no CP/SOB preceding. She apparently after this was sent to the waiting room and passed out again. No trauma reported. She denies fevers, change in urine she still produces a little. She notes no skin infections and that her wounds are healed. No diarrhea. She denies any other issues - states she is taking all of her medications. MD complaint: loss of consciousness Onset (ago): hour(s) (couple) -: second(s) Prodromal symptoms: lightheaded Witnessed: Yes - by Bystander Context: at rest (during HD and after HD) Injuries sustained associated with event: none Current symptoms: nausea and abdominal pain Treatments prior to arrival: none Related Data Home Medications ?Medication ?Instructions ?Recorded ?Confirmed albuterol sulfate 90 mcg/actuation 2 puff inhalation Q6H PRN wheezing 01/15/24 06/25/24 aerosol inhaler (Ventolin HFA) lidocaine 5 % topical patch 1 patch topical DAILY PRN Pain 01/15/24 06/25/24 nitroglycerin 0.4 mg sublingual 0.4 mg sublingual DIRECTED PRN 01/15/24 06/25/24 tablet Angina acetaminophen 325 mg tablet 650 mg PO Q4H PRN mild pain 03/11/24 06/25/24 oxycodone 5 mg tablet 5 mg PO Q8H PRN Pain 05/25/24 06/25/24 Previous Rx's ?Medication ?Instructions ?Recorded carvedilol 12.5 mg tablet 12.5 mg PO BID 90 days #180 tabs 12/16/23 hydralazine 50 mg tablet 50 mg PO TID 90 days #270 tabs 12/16/23 cefazolin 2 gram intravenous 2 g IV . and 06/03/24 solution Allergies Allergy/AdvReac Type Severity Reaction Status Date / Time morphine [MORPHINE] Allergy Intermediate Itching Verified 07/03/24 15:38 azithromycin [From Zithromax] Allergy Hives Verified 06/25/24 17:51 gabapentin Allergy Facial Verified 06/25/24 17:51 Swelling tramadol Allergy Facial Verified 06/25/24 17:51 Swelling vancomycin Allergy Anaphylaxis Verified 06/25/24 17:51 Review of Systems 2 Review of Systems: Constitutional : No Weight loss, No Fever, No Chills ENT/Mouth : No sore throat, No Rhinorrhea Eyes: No Swelling, No Redness Cardiovascular : No Chest Pain, No SOB, NoEdema Respiratory : No Cough, No Sputum, No Wheezing Gastrointestinal : Positive Nausea, Positive Vomiting, no Diarrhea, positive abdominal Pain, No Hematochezia, No Melena Genitourinary : No Dysuria, No Urinary Frequency, No Hematuria, No Urgency Musculoskeletal : No joint pain, No Myalgias, No Joint Swelling Skin : No Skin Lesions, No rash Neuro : No Weakness, No Numbness, No Dizziness, pos Headache All other systems reviewed and are negative. [facility] Past Medical History Attestation statement: The following information was validated with the patient. Source: old records reviewed Medical History ESRD (end stage renal disease) Hypotonic neurogenic bladder Diabetic polyneuropathy ESRD (end stage renal disease) on dialysis Hypertensive emergency Non-compliance with renal dialysis Decompensated heart failure Congestive heart failure Renal failure Hypertension, uncontrolled Medical non-compliance Pericarditis Unspecified hypertension, condition or complication Metabolic acidosis Gastroparesis End stage chronic kidney disease Chronic kidney disease Anemia Chronic foot ulcer Plantar ulcer of left foot Major depressive disorder, single episode, severe Non-compliance with renal dialysis Hypertensive urgency MDD (major depressive disorder), recurrent episode MDD (major depressive disorder) Renal failure Foot ulcer CKD (chronic kidney disease) Hypertension Diabetic foot Hyperkalemia Vomiting Renal failure Hypertension Migraine Chronic pain ESRD on dialysis Non-compliance with renal dialysis Hypertension End-stage renal disease (ESRD) Diabetic foot ulcer associated with type 2 diabetes mellitus Diabetes ESRD needing dialysis Cardiomyopathy HFrEF (heart failure with reduced ejection fraction) delivery delivered Anemia in chronic kidney disease (CKD) CKD (chronic kidney disease) Headache, migraine Abnormal finding on echocardiogram Elevated troponin Chest pain Acute worsening of stage 3 chronic kidney disease Generalized edema Sepsis Cellulitis Pleural effusion CHF (congestive heart failure) (~06/07/22) Tachycardia Atypical chest pain Bone infection PAD (peripheral artery disease) Severe anemia Cellulitis and abscess of foot DM foot ulcer Osteomyelitis Asthma Depression with anxiety Diabetic retinopathy Type 2 diabetes mellitus with hyperglycemia, with long-term current use of insulin Blind right eye Diabetes Back pain Surgical History Tubal ligation status Previous section Hx laparoscopic cholecystectomy Hx of surgical procedure (~09/11/23) 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 Family History Family History Mother Coronary artery disease Myocardial infarction Stroke Diabetes mellitus Father Myocardial infarction Social History Social History Household Members: Other Household Members Other:: sister Housing: Apartment Are you a primary care advocate to a significant other at home: No Do you presently have visiting nurse or other home services: No Unable to assess alcohol history related to: Unknown Alcohol intake: never Comment: pt. refusing high fall risk protocols. Patient Tobacco Use Status: Never used Tobacco Smoked in Last 30 Days: No e-Cigarette/Vaping Use: Never Used Second Hand Smoke Exposure: No Use of substances other than those prescribed or required for medical reasons: No Advance Directives: Yes Advance Directives on File: Yes Advance Directives Date on File: 09/04/23 service: No Current occupational status: unemployed and disabled Gender identity: Female Physical Exam 2 Vital Signs: Vital Signs: Last Vital Signs Temp 97.9 F 07/03/24 19:47 Pulse 83 07/03/24 19:47 Resp 13 07/03/24 19:47 BP 144/72 H 07/03/24 19:47 Pulse Ox 100 07/03/24 19:47 O2 Del Method Room Air 07/03/24 19:47 BMI result Body Mass Index 24.2 Appearance: Alert. Oriented X3. No acute distress. Eyes: Pupils abnormal with corneal opacifications ENT: Pharynx normal. Neck: Normal inspection. Neck supple. CVS: Normal heart rate and rhythm. Pulses normal. Respiratory: No respiratory distress. Breath sounds normal. Abdomen: Soft and ttp along lower abdomem Skin: Skin warm and dry. Normal skin color. Normal skin turgor. Extremities: No lower extremity edema. Neuro: Oriented X 3. No motor deficit. No sensory deficit. CN2-12 intact Medications Administered Discontinued Medications Generic Name Dose Route Start Last Admin Trade Name Brandon PRN Reason Stop Dose Admin Diazepam 2.5 mg 07/03/24 17:29 07/03/24 18:13 Diazepam 10 Mg/2 Ml Cartridge IVPUSH 07/03/24 17:30 2.5 mg STAT STA Administration Medical Decision Making Medical Decision Making [facility] Narrative: 33 yo female with PMH of ESRD on HD S, DM with retinopathy and blindness, PAD s/p bilateral TMA, HTN, respiratory failure on chronic O2 - 3 to 4L NC, CHF, mood disorder, opiate use disorder, bacteremia now here with reports of n/v and lower abdominal pain. She reports she passed out HD x 3 but then they sent her to waiting room to pass out again which is somewhat weird. At this time will obtain labs, CT scan for acute pathology, tele, IV valium for n/v given her prolonged qtc. Possible anemia, diverticular disease, abdominal pain, n/v, ACS less likely, no CP/SOB to suggest VTE Differential Diagnosis Differential Diagnoses: The differential diagnosis associated with the presentation includes diverticulitis, constipation, abdominal pain, ACS less likely trop lower than usual and no chest pain, qtc prolonged 568 could be the cause, hypovolemia, anemia no CP/SOB to suggest VTE Admission/Observation Consideration of admission/observation: Escalation of care including admission/observation considered admit for further monitoring, syncope and qtc 568 Consult Healthcare Provider Management of the patient was discussed with: Hospitalist (will admit) Lab Data [facility] Lab Attestation statement: I reviewed the patient's lab results. H/H at baseline, labs stable, trop leak chronic and lower than usual 07/03/24 16:25 07/03/24 16:25 Labs: Lab Results 07/03/24 Range/Units 16: WBC 4.4 L (4.8-10.8) X10*3/uL RBC 4.25 (4.20-5.50) X10*6/uL Hgb 12.1 (12.0-16.0) g/dl Hct 35.8 L (37.0-47.0) % MCV 84.2 (80.0-98.0) fL MCH 28.5 (27.0-33.0) pg MCHC 33.8 (31.0-35.0) g/dl RDW 16.1 H (11.0-16.0) % Plt Count 97 L (160-400) X10*3/uL MPV 10.8 (9.4-12.3) fL Immature Gran % (Auto) 0.5 H (0.0-0.4) % Neut % (Auto) 67.6 (45-73) % Lymph % (Auto) 14.3 L (20-40) % [place] % (Auto) 13.1 H (2-11) % Eos % (Auto) 3.6 (0-4) % Baso % (Auto) 0.9 (0-2) % Lymph # (Auto) 0.6 L (1.2-4.9) X10*3/uL [place] # (Auto) 0.6 (0.1-1.2) X10*3/uL Eos # (Auto) 0.2 (0.0-0.4) X10*3/uL Baso # (Auto) 0.0 (0.0-0.2) X10*3/uL Abs Immat Gran (auto) 0.02 (0.00-0.03) X10*3/uL Absolute Neuts (auto) 3.0 (2.0-8.3) x10*3/uL Absolute Nucleated RBC 0.000 (0.0-0.012) X10*3/uL Nucleated RBC % (auto) 0.0 (0.0-0.2) /100WBC Smear Tech's Comments VERIFIED Sodium 135 (135-145) mmol/L Potassium 3.8 D (3.3-5.1) mmol/L Chloride 97 (96-108) mmol/L Carbon Dioxide 26 (22-29) mmol/L Anion Gap 16 (12-20) BUN 34 H (9-16) mg/dL Creatinine 5.36 H* (0.5-1.4) mg/dL Estim Creat Clear Calc 13.7 Estimated GFR 9 Random Glucose 145 H (60-115) mg/dL Calcium 9.2 D (8.4-10.2) mg/dL Total Bilirubin 0.7 (0.0-1.0) mg/dL AST 28 (5-31) U/L ALT < 6 (0-31) U/L Alkaline Phosphatase 167 H (39-117) U/L Troponin I High Sens 77.0 H* D (<3.5-17.0) ng/L Total Protein 8.7 H (6.5-8.0) g/dL Albumin 4.0 (3.5-5.0) g/dL Lipase 58 (8-78) U/L Independent Interpretation I performed an independent interpretation of an: EKG and CT Scan (no cause of pain) Interpretation: Rate: 83 Rhythm: NSR Bison: left Normal P waves. Normal TYLER. RBBB ST T wave : ST depressions lateral leads, no GABRIELE qTC: 568 prior studies: no change from prior - qtc usually 540s and 530s The study has been interpreted contemporaneously by me. . Radiology Impression Discussion of test interpretation with radiology: I have reviewed the radiologist's reading. Independent Historian Clinical information obtained from an independent historian. History obtained from or confirmed by: EMS External Record Review External record reviewed: Inpatient record and Outpatient record Critical Care Time Critical Care Time Critical Care Time: Yes Total Critical Care Time: 45 Attestation: review of records, tele, admission, IV dilaudid with improvement in pain I attest to this time spent taking care of the patient Discharge Plan Discharge Clinical Impression: Nausea & vomiting, Prolonged QT interval, Abdominal pain Patient Disposition: Admitted As Inpatient Prescriptions: No Action carvedilol 12.5 mg Tablet 12.5 mg PO BID 90 Days Qty: 180 0RF Protocol: Hold for SBP/HR < HOLD for SBP < : 90 HOLD for HR < : 60 hydralazine 50 mg Tablet 50 mg PO TID 90 Days Qty: 270 0RF Protocol: Hold for SBP< HOLD for SBP < : 90 acetaminophen 325 mg tablet 650 mg PO Q4H PRN (Reason: mild pain) oxycodone 5 mg tablet 5 mg PO Q8H PRN (Reason: Pain) cefazolin 2 gram recon soln 2 g IV ./ and Sun Rx Instructions: 2 g cefazolin IV Sunday and Sunday post hemodialysis, end date July 11 lidocaine 5 % adhesive patch,medicated 1 patch topical DAILY PRN (Reason: Pain) nitroglycerin 0.4 mg tablet, sublingual 0.4 mg sublingual DIRECTED PRN (Reason: Angina) albuterol sulfate [Ventolin HFA] 90 mcg/actuation HFA aerosol inhaler 2 puff inhalation Q6H PRN (Reason: wheezing) Print Language: Albanian
[2024-07-03 18:12] VITALS: O2SAT 98
[2024-07-03] MEDS: diazePAM 10 MG/2 ML CARTRIDGE 2.5 MG IVPUSH (18:13)
[2024-07-03 18:24] LABS: Lipase 58 U/L (8-78)
[2024-07-03 19:47] VITALS: BP 144/72; PULSE 83; RESP 13; TEMP 36.6; O2SAT 100
--- NOTE | 2024-07-03 21:24 | ECG_ITS ---
Test Reason : QTC Blood Pressure : */* mmHG Vent. Rate : 82 BPM Atrial Rate : 82 BPM P-R Int : 170 ms QRS Dur : 146 ms QT Int : 472 ms P-R-T Axes : 43 -27 203 degrees QTcB Int : 551 ms Normal sinus rhythm Possible Left atrial enlargement Right bundle branch block Abnormal ECG When compared with ECG of 03-Jul-2024 16:14, No significant changes seen Referred By: Nat Brown Electronically Signed By: JASKARAN COOL
[2024-07-03 21:51] VITALS: BP 136/65; PULSE 83; RESP 12; TEMP 36.6; O2SAT 99
[2024-07-03] MEDS: HYDROmorphone HCl 0.5 MG/0.5 ML SYRINGE IVPUSH (21:53)
--- NOTE | 2024-07-03 22:18 | PHA.MEDREC ---
Addendum entered by Ashvin Ramey [facility] 07/03/24 22:47: MED REC CHECKED BY [facility] Original Note: Pharmacy Consult ? Medication Reconciliation Pharmacy has completed the medication reconciliation. Spoke with patient and she confirmed there are no changes from her last discharge 06/25/24. Patient confirmed she is still getting the Cefazolin at Dialysis until 07/11 and got it today at her Dialysis treatment. Patient states she has been trying to take her medications for the last week but has not been able to keep anything down and throwing them up within an hour or so of taking them.
[2024-07-03 22:30] VITALS: BP 154/88; PULSE 83; RESP 14
--- NOTE | 2024-07-03 22:53 | P.HPHOSP_ITS ---
History of Present Illness Date of Service: 07/03/24 Chief Complaint: Syncope This has a 33-year-old female with pertinent history of ESRD on hemodialysis T/T/S, [id number] 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, peripheral arterial disease status post bilateral TMA, poorly controlled hypertension due to medication noncompliance, chronic hypoxemic respiratory failure on 3-4 L baseline supplemental oxygen, congestive heart failure with reduced ejection fraction, mood disorder, chronic pain with opioid seeking behavior who presents to the emergency department for evaluation of syncope. Patient states she had 3 episode of brief loss of consciousness on the day of presentation. Patient was having dialysis during 1 of the episodes. The 2nd episode happened soon after she finished her dialysis session. The 3rd episode happened when she was in her wheelchair in the waiting room waiting for transportation when bystanders noticed that she had passed out again. Denies chest pain or palpitations preceding the episodes. No dizziness or lightheadedness preceding the episodes. States this has never happened before. Patient is complaining of nausea that started about a week ago with intermittent nonbloody emesis. Has associated diffuse generalized abdominal discomfort. No fever, chills, shortness of breath, changes in bowel habits. In the emergency department, EKG with QT prolongation. Review of Systems 2 Constitutional: Constitutional: Reports no additional constitutional complaints Cardiovascular: Cardiovascular: Reports no additional cardiovascular complaints and Reports syncope Respiratory: Respiratory: Reports no additional respiratory complaints Gastrointestinal: Gastrointestinal: Reports no additional gastrointestinal complaints Genitourinary: Genitourinary: Reports no additional female genitourinary complaints Neurologic: Reports syncope [facility] Medical History ESRD (end stage renal disease) Hypotonic neurogenic bladder Diabetic polyneuropathy ESRD (end stage renal disease) on dialysis Hypertensive emergency Non-compliance with renal dialysis Decompensated heart failure Congestive heart failure Renal failure Hypertension, uncontrolled Medical non-compliance Pericarditis Unspecified hypertension, condition or complication Metabolic acidosis Gastroparesis End stage chronic kidney disease Chronic kidney disease Anemia Chronic foot ulcer Plantar ulcer of left foot Major depressive disorder, single episode, severe Non-compliance with renal dialysis Hypertensive urgency MDD (major depressive disorder), recurrent episode MDD (major depressive disorder) Renal failure Foot ulcer CKD (chronic kidney disease) Hypertension Diabetic foot Hyperkalemia Vomiting Renal failure Hypertension Migraine Chronic pain ESRD on dialysis Non-compliance with renal dialysis Hypertension End-stage renal disease (ESRD) Diabetic foot ulcer associated with type 2 diabetes mellitus Diabetes ESRD needing dialysis Cardiomyopathy HFrEF (heart failure with reduced ejection fraction) delivery delivered Anemia in chronic kidney disease (CKD) CKD (chronic kidney disease) Headache, migraine Abnormal finding on echocardiogram Elevated troponin Chest pain Acute worsening of stage 3 chronic kidney disease Generalized edema Sepsis Cellulitis Pleural effusion CHF (congestive heart failure) (~06/07/22) Tachycardia Atypical chest pain Bone infection PAD (peripheral artery disease) Severe anemia Cellulitis and abscess of foot DM foot ulcer Osteomyelitis Asthma Depression with anxiety Diabetic retinopathy Type 2 diabetes mellitus with hyperglycemia, with long-term current use of insulin Blind right eye Diabetes Back pain Family History Mother Coronary artery disease Myocardial infarction Stroke Diabetes mellitus Father Myocardial infarction Surgical History Tubal ligation status Previous section Hx laparoscopic cholecystectomy Hx of surgical procedure (~09/11/23) 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 Social History Household Members: Other Household Members Other:: sister Housing: Apartment Are you a primary medical care manager to a significant other at home: No Do you presently have visiting nurse or other home services: No Unable to assess alcohol history related to: Unknown Alcohol intake: never Comment: pt. refusing high fall risk protocols. Patient Tobacco Use Status: Never used Tobacco Smoked in Last 30 Days: No e-Cigarette/Vaping Use: Never Used Second Hand Smoke Exposure: No Use of substances other than those prescribed or required for medical reasons: No Advance Directives: Yes Advance Directives on File: Yes Advance Directives Date on File: 09/04/23 Nutrition Risks: No Nutritional Risk service: No Current occupational status: unemployed and disabled Gender identity: Female Meds Allergies Allergy/AdvReac Type Severity Reaction Status Date / Time morphine [MORPHINE] Allergy Intermediate Itching Verified 07/03/24 15:38 azithromycin [From Zithromax] Allergy Hives Verified 06/25/24 17:51 gabapentin Allergy Facial Verified 06/25/24 17:51 Swelling tramadol Allergy Facial Verified 06/25/24 17:51 Swelling vancomycin Allergy Anaphylaxis Verified 06/25/24 17:51 Active Medications: Current Medications Magnesium Sulfate (Magnesium Sulfate/H2o) 2 gm in 50 mls @ 25 mls/hr IV ONCE ONE Stop: 07/04/24 00:49 Home Medications ?Medication ?Instructions ?Recorded ?Confirmed ?Last Taken ?Type albuterol sulfate 90 mcg/actuation 2 puff inhalation Q6H PRN wheezing 01/15/24 07/03/24 Unknown History aerosol inhaler (Ventolin HFA) lidocaine 5 % topical patch 1 patch topical DAILY PRN Pain 01/15/24 07/03/24 02/24/24 History nitroglycerin 0.4 mg sublingual 0.4 mg sublingual DIRECTED PRN 01/15/24 07/03/24 Unknown History tablet Angina acetaminophen 325 mg tablet 650 mg PO Q4H PRN mild pain 03/11/24 07/03/24 Unknown History oxycodone 5 mg tablet 5 mg PO Q8H PRN Pain 05/25/24 07/03/24 06/25/24 History calcium carbonate (Tums) 200 mg PO TIDWM 07/03/24 07/03/24 Unknown History Physical Exam 2 Vital Signs and Narrative: Vital Signs: Last Vital Signs Temp 97.9 F 07/03/24 21:51 Pulse 83 07/03/24 22:30 Resp 14 07/03/24 22:30 BP 154/88 H 07/03/24 22:30 Pulse Ox 99 07/03/24 21:51 O2 Del Method Room Air 07/03/24 21:51 BMI result Body Mass Index 24.2 Middle-aged female lying in bed in no distress Neck supple, no JVD, blind, hemodialysis catheter without tenderness or purulence Regular rate and rhythm, S1-S2 heard No wheezing Abdomen soft, mild tenderness to deep palpation, no guarding, no rigidity Patient is awake, alert and oriented x3 ; no focal motor deficit Psych: Normal mood Bilateral TMA Results Labs 07/03/24 16:25 07/03/24 16:25 Labs: Laboratory Results - last 24 hr 07/03/24 16:25 MCV 84.2 MCH 28.5 MCHC 33.8 RDW 16.1 H Plt Count 97 L MPV 10.8 Immature Gran % (Auto) 0.5 H Neut % (Auto) 67.6 Lymph % (Auto) 14.3 L [place] % (Auto) 13.1 H Eos % (Auto) 3.6 Baso % (Auto) 0.9 Lymph # (Auto) 0.6 L [place] # (Auto) 0.6 Eos # (Auto) 0.2 Baso # (Auto) 0.0 Abs Immat Gran (auto) 0.02 Absolute Neuts (auto) 3.0 Absolute Nucleated RBC 0.000 Nucleated RBC % (auto) 0.0 Smear Tech's Comments VERIFIED Anion Gap 16 Estim Creat Clear Calc 13.7 Estimated GFR 9 Random Glucose 145 H Calcium 9.2 D Total Bilirubin 0.7 AST 28 ALT < 6 Alkaline Phosphatase 167 H Total Protein 8.7 H Albumin 4.0 Lipase 58 Assessment and Plan (1) Syncope: Status: Acute (2) Prolonged QT interval: Status: Acute (3) Nausea & vomiting: Qualifiers: Vomiting type: unspecified Qualified Code(s): R11.2 - Nausea with vomiting, unspecified Status: Acute Plan This has a 33-year-old female with pertinent history of ESRD on hemodialysis T/T/S, [id number] 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, peripheral arterial disease status post bilateral TMA, poorly controlled hypertension due to medication noncompliance, chronic hypoxemic respiratory failure on 3-4 L baseline supplemental oxygen, congestive heart failure with reduced ejection fraction, mood disorder, chronic pain with opioid seeking behavior who presents to the emergency department for evaluation of syncope #. Syncope: Will admit patient with cardiac monitoring. EKG with QT prolongation. Administered potassium and magnesium replacement. Recheck electrolytes in a.m. including magnesium. Cardiology consulted. Avoid QT prolonging agents #. Nausea/vomiting: Likely viral gastroenteritis. Symptoms improving. Imaging without any acute abnormality #. ESRD on hemodialysis: Consulted Nephrology #. Hypertension: Resume home carvedilol plus hydralazine #. Chronic hypoxemic respiratory failure: On 3-4 L baseline oxygen #. Congestive heart failure with reduced EF: On beta-mohamud. Dialysis as above #. Gaq-vjeekim-azghpctff diabetes mellitus with diabetic polyneuropathy/retinopathy: Initiating Accu-Cheks with sliding scale insulin #. Mood disorder: Not on mood stabilizers #. Chronic pain with opioid seeking behavior: Will avoid IV Dilaudid as much as possible. On p.o. oxycodone Med rec pending DVT prophylaxis: Hold anticoagulation until platelets greater than 100 Full code Quality Stroke Does the patient have a stroke diagnosis?: No VTE Prior VTE?: No VTE Risk Level:: Medical - moderate - high VTE Device Contraindication: N/A - Device Ordered VTE Drug Contraindication: Treatment Not Indicated
[2024-07-03] MEDS: Magnesium Sulfate/H2O 2 GM/50 ML PIGGYBACK IV (22:59)
[2024-07-04] VITALS (10 sets, daily range): BP systolic 144–193; BP diastolic 69–94; PULSE 79–92; RESP 14–19; TEMP 36–36.9; O2SAT 98–100; BMI 29.3
[2024-07-04] MEDS: Famotidine/PF 20 MG/2 ML VIAL 10 MG IVPUSH (00:21)
--- NOTE | 2024-07-04 08:33 | MHC.CM.PN ---
KAT addressed verbally,Patient is Legally Blind. Patient lives in an apartment with her Sister/HCP/[employer]ODUCT MANA[employer]/Mary and she uses a w/c to assist with mobility; Patient will require BLS transport to home at time of dc. Patient has 51 hours/week of [employer] services, home O2 from [facility], and she attends HD @ [facility] Q T//SUN. Home/resume said services is the goal and CM has initiated and will follow for dc planning. PCP is Dr. Genevieve Casillas.
--- NOTE | 2024-07-04 09:00 | ECG_ITS ---
Test Reason : qtc check Blood Pressure : */* mmHG Vent. Rate : 77 BPM Atrial Rate : 77 BPM P-R Int : 166 ms QRS Dur : 146 ms QT Int : 494 ms P-R-T Axes : 67 -28 135 degrees QTcB Int : 559 ms Normal sinus rhythm Possible Left atrial enlargement Right bundle branch block Abnormal ECG When compared with ECG of 03-Jul-2024 21:56, No significant changes seen Referred By: Alejandra Sewell Electronically Signed By: JASKARAN COOL
--- NOTE | 2024-07-04 11:33 | P.CONCA_ITS ---
History of Present Illness History of Present Illness Date of Service: 07/04/24 Chief complaint: syncope Narrative: This is a cardiology consultation regarding syncopal episode. Patient has a history of ESRD on hemodialysis, hypertension and noncompliance. However, over the last few months she states that she has actually been very compliant and attending all her dialysis sessions. She has cardiomyopathy and the last EF on echocardiogram was about 41%. Severe left ventricular hypertrophy. Current admission is because of syncopal episodes. Patient apparently was at dialysis and in that setting, she had syncopal episode. Subsequently, she was taken to the waiting area and she had one further episode syncope there. She states that she has not been feeling well this week and has a been having nausea as well as vomiting. Also additional symptoms like cough. From the cardiac standpoint, she does not have any symptoms like angina or shortness of breath or anything else along those lines. We have been asked to assess her for further evaluation. Review of Systems 2 Review of Systems: Yes all other systems are reviewed and are negative Constitutional: Constitutional: Reports as per HPI and Reports no additional constitutional complaints Eyes: Eyes: Reports as per HPI and Denies no additional eye complaints ENT: Denies system reviewed and no additional complaints, except as documented and Reports as per HPI Cardiovascular: Cardiovascular: Reports as per HPI, Reports no additional cardiovascular complaints, Denies acrocyanosis, Denies cool extremities, Denies chest pain, Denies leg edema, Denies lightheadedness, Denies palpitations and Denies dyspnea Respiratory: Respiratory: Reports as per HPI, Denies no additional respiratory complaints, Reports cough and Denies dyspnea Gastrointestinal: Gastrointestinal: Reports as per HPI, Denies no additional gastrointestinal complaints, Reports nausea and Reports vomiting Genitourinary: Genitourinary: Reports as per HPI Musculoskeletal: Musculoskeletal: Reports no additional musculoskeletal complaints and Reports as per HPI Integumentary/Breasts: Skin/Breast: Reports system reviewed and no additional complaints, except as docu Neurologic: Reports system reviewed and no additional complaints, except as documented and Reports as per HPI Psychiatric: Psychiatric: Reports no additional psychiatric complaints and Reports as per HPI Endocrine: Endocrine: Reports no additional endocrine complaints, Reports as per HPI and Denies palpitations Hematologic/Lymphatic: Hematologic/Lymphatic: Reports no additional hematologic/lymphatic complaints and Reports as per HPI Allergic/Immunologic: Allergic/Immunologic: Reports no additional allergic/immunologic complaints and Reports as per HPI PMFSH Past Medical History Medical History (Updated 07/04/24 @ 11:39 by Brandyn Bhardwaj MD) ESRD (end stage renal disease) Hypotonic neurogenic bladder Diabetic polyneuropathy ESRD (end stage renal disease) on dialysis Hypertensive emergency Non-compliance with renal dialysis Decompensated heart failure Congestive heart failure Renal failure Hypertension, uncontrolled Medical non-compliance Pericarditis Unspecified hypertension, condition or complication Metabolic acidosis Gastroparesis End stage chronic kidney disease Chronic kidney disease Anemia Chronic foot ulcer Plantar ulcer of left foot Major depressive disorder, single episode, severe Non-compliance with renal dialysis Hypertensive urgency MDD (major depressive disorder), recurrent episode MDD (major depressive disorder) Renal failure Foot ulcer CKD (chronic kidney disease) Hypertension Diabetic foot Hyperkalemia Vomiting Renal failure Hypertension Migraine Chronic pain ESRD on dialysis Non-compliance with renal dialysis Hypertension End-stage renal disease (ESRD) Diabetic foot ulcer associated with type 2 diabetes mellitus Diabetes ESRD needing dialysis Cardiomyopathy HFrEF (heart failure with reduced ejection fraction) delivery delivered Anemia in chronic kidney disease (CKD) CKD (chronic kidney disease) Headache, migraine Abnormal finding on echocardiogram Elevated troponin Chest pain Acute worsening of stage 3 chronic kidney disease Generalized edema Sepsis Cellulitis Pleural effusion CHF (congestive heart failure) (~06/07/22) Tachycardia Atypical chest pain Bone infection PAD (peripheral artery disease) Severe anemia Cellulitis and abscess of foot DM foot ulcer Osteomyelitis Asthma Depression with anxiety Diabetic retinopathy Type 2 diabetes mellitus with hyperglycemia, with long-term current use of insulin Blind right eye Diabetes Back pain Family History Family History Mother Coronary artery disease Myocardial infarction Stroke Diabetes mellitus Father Myocardial infarction Surgical History Surgical History Tubal ligation status Previous section Hx laparoscopic cholecystectomy Hx of surgical procedure (~09/11/23) 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 Social History Social History Household Members: Family Household Members Other:: sister Housing: Apartment Are you a primary director of managed care to a significant other at home: No Do you presently have visiting nurse or other home services: No Unable to assess alcohol history related to: Unknown Alcohol intake: never Comment: pt. refusing high fall risk protocols. Patient Tobacco Use Status: Never used Tobacco e-Cigarette/Vaping Use: Never Used Second Hand Smoke Exposure: No Advance Directives Date on File: 09/04/23 service: No Current occupational status: unemployed and disabled Gender identity: Female Meds Allergies Allergy/AdvReac Type Severity Reaction Status Date / Time morphine [MORPHINE] Allergy Intermediate Itching Verified 07/03/24 15:38 azithromycin [From Zithromax] Allergy Hives Verified 06/25/24 17:51 gabapentin Allergy Facial Verified 06/25/24 17:51 Swelling tramadol Allergy Facial Verified 06/25/24 17:51 Swelling vancomycin Allergy Anaphylaxis Verified 06/25/24 17:51 Active Medications: Current Medications Acetaminophen (Acetaminophen 325 Mg Tablet) 650 mg PO Q6H PRN PRN Reason: Pain, Mild 1-3,fever,headache Calcium Carbonate (Calcium Carbonate 750 Mg Tab.Chew) 750 mg PO Q4H PRN PRN Reason: Heartburn Dextrose (Dextrose 50 % 25 Gm/50 Ml Syringe) 25 gm IVPUSH Q15M PRN; Protocol PRN Reason: per Hypoglycemia Standing Ord. Glucose (Glucose Gel 15 Gm Gel..Gram.) 15 gm PO Q15M PRN; Protocol PRN Reason: per Hypoglycemia Standing Ord. Insulin Human Lispro (Insulin Lispro 100 Unit/Ml 3 Ml Vial) [facility]; Protocol Last Admin: 07/04/24 11:32 Dose: Not Given Magnesium Hydroxide (Milk Of Magnesia 30 Ml Oral.Susp) 30 ml PO DAILY PRN PRN Reason: Constipation Melatonin (Melatonin 3 Mg Tablet) 6 mg PO BEDTIME PRN PRN Reason: Insomnia Metoclopramide HCl (Metoclopramide Hcl 5 Mg Tablet) 5 mg PO TIDAC [facility] Sodium Chloride (0.9 % Sodium Chloride Flush 3 Ml Syringe) 3 ml IVFLUSH QSHIFT [facility] Last Admin: 07/04/24 07:47 Dose: Not Given Home Medications ?Medication ?Instructions ?Recorded ?Confirmed ?Last Taken ?Type albuterol sulfate 90 mcg/actuation 2 puff inhalation Q6H PRN wheezing 01/15/24 07/03/24 Unknown History aerosol inhaler (Ventolin HFA) lidocaine 5 % topical patch 1 patch topical DAILY PRN Pain 01/15/24 07/03/24 02/24/24 History nitroglycerin 0.4 mg sublingual 0.4 mg sublingual DIRECTED PRN 01/15/24 07/03/24 Unknown History tablet Angina acetaminophen 325 mg tablet 650 mg PO Q4H PRN mild pain 03/11/24 07/03/24 Unknown History oxycodone 5 mg tablet 5 mg PO Q8H PRN Pain 05/25/24 07/03/24 06/25/24 History calcium carbonate (Tums) 200 mg PO TIDWM 07/03/24 07/03/24 Unknown History Physical Exam 2 Vital Signs: Vital Signs: Last Vital Signs Temp 97.3 F 07/04/24 11:30 Pulse 79 07/04/24 11:30 Resp 16 07/04/24 11:30 BP 154/71 H 07/04/24 11:30 Pulse Ox 100 07/04/24 11:30 O2 Del Method Nasal Cannula 07/04/24 11:30 O2 Flow Rate 2 07/04/24 11:30 BMI result Body Mass Index 29.3 Const: General: comfortable and no acute distress O rientation/consciousness: patient oriented x3 HEENT: Other: Unremarkable Head: Yes normal to inspection Neck: Neck: Yes normal visual inspection Chest: Chest palpation & inspection: normal inspection of the chest Resp: Auscultation: clear to auscultation bilaterally Cardio: Palpation: normal PMI Heart sounds: S1 normal heart sound present, S2 normal heart sound present, no gallops, no murmurs and no rubs GI: Palpation (GI): Soft to palpation Back/Spine/Pelvis: Other: unremarkable Skin: General skin exam: no rashes or lesions noted Neuro: General: patient oriented x3 Extrem: General: Yes normal to inspection Psych: Mental Status: mental status grossly normal Objective Labs and Meds 07/03/24 16:25 07/03/24 16:25 Lab results: Laboratory Results - last 24 hr 07/03/24 16:25 WBC 4.4 L RBC 4.25 Hgb 12.1 Hct 35.8 L MCV 84.2 MCH 28.5 MCHC 33.8 RDW 16.1 H Plt Count 97 L MPV 10.8 Immature Gran % (Auto) 0.5 H Neut % (Auto) 67.6 Lymph % (Auto) 14.3 L [place] % (Auto) 13.1 H Eos % (Auto) 3.6 Baso % (Auto) 0.9 Lymph # (Auto) 0.6 L [place] # (Auto) 0.6 Eos # (Auto) 0.2 Baso # (Auto) 0.0 Abs Immat Gran (auto) 0.02 Absolute Neuts (auto) 3.0 Absolute Nucleated RBC 0.000 Nucleated RBC % (auto) 0.0 Smear Tech's Comments VERIFIED Sodium 135 Potassium 3.8 D Chloride 97 Carbon Dioxide 26 Anion Gap 16 BUN 34 H Creatinine 5.36 H* Estim Creat Clear Calc 13.7 Estimated GFR 9 Random Glucose 145 H Calcium 9.2 D Total Bilirubin 0.7 AST 28 ALT < 6 Alkaline Phosphatase 167 H Troponin I High Sens 77.0 H* D Total Protein 8.7 H Albumin 4.0 Lipase 58 ECG Interpretation: In the EKG, underlying rhythm is sinus at 77/Min; right bundle-branch block pattern. Corrected QT is prolonged but a lot of it is because of the widened QRS from the right bundle-branch block. Suggestion of strain pattern. Less likely ischemia. Overall, EKGs have been unchanged for a long time. Assessment and Plan (1) ESRD on hemodialysis: Status: Acute (2) Syncope and collapse: Status: Acute (3) Prolonged QT interval: Status: Acute Plan Syncopal episodes in the setting of nausea/vomiting this week and while undergoing dialysis. No clear cardiac etiology for this. There is evidence of QT prolongation but it is more so because of the widened QRS from left bundle-branch block. Do not believe she had VT related to this causing the syncope. Telemetry is essentially unremarkable. No specific implications from the slightly elevated troponins. In fact, she has always had elevations in this. Need to consult Nephrology to assess how much fluid is she getting removed during dialysis. May have to possibly adjust. Discussed with Angela Ulloa. Procedures Date of Service Date of Service: 07/04/24
[2024-07-04] MEDS: Metoclopramide HCl 5 MG TABLET PO (11:53)
[2024-07-04] MEDS: oxyCODONE HCl Immed Release 5 MG TABLET PO (11:53)
[2024-07-04] MEDS: Pantoprazole Sodium 40 MG/10 ML VIAL IVPUSH (12:47)
[2024-07-04] MEDS: 0.9 % Sodium Chloride Flush 3 ML SYRINGE IVFLUSH ×2 (12:47→20:24)
[2024-07-04] MEDS: HYDROmorphone HCl 0.5 MG/0.5 ML SYRINGE 0.25 MG IVPUSH (12:47)
[2024-07-04] MEDS: hydrALAZINE HCl 50 MG TABLET PO (14:04)
--- NOTE | 2024-07-04 16:29 | HO.PM.IMPN ---
Subjective Subjective Date of Service: 07/04/24 Interval History: seen and examined this morning follow up for syncope reporting nausea and vomiting Review of Systems Review of Systems: Yes all other systems are reviewed and are negative Constitutional Constitutional: Denies chills and Denies fever(s) Physical Exam Vital Signs: Vital Signs: Last Vital Signs Temp 97.2 F 07/04/24 15:00 Pulse 80 07/04/24 15:00 Resp 16 07/04/24 15:00 BP 144/69 H 07/04/24 15:00 Pulse Ox 100 07/04/24 15:00 O2 Del Method Nasal Cannula 07/04/24 15:00 O2 Flow Rate 2 07/04/24 15:00 BMI result Body Mass Index 29.3 Const: General: no acute distress, alert and awake Nutritional Appearance: average body habitus Orientation/consciousness: patient oriented x3 Eyes: Other: blind right eye Resp: Effort & Inspection: normal respiratory effort, able to speak in complete sentences, no respiratory distress and no use of accessory muscles Cardio: Rate: regular rate GI: Inspection: No distended Palpation (GI): Soft to palpation Neuro: Other: grossly nonfocal General: patient oriented x3 Extrem: Other: s/p b/l tma Objective Data Active Medications Acetaminophen (Acetaminophen 325 Mg Tablet) 650 mg PO Q6H PRN PRN Reason: Pain, Mild 1-3,fever,headache Albuterol Sulfate (Albuterol Sulfate 90 Mcg 8 Gm Inhaler) 2 puff INHALE Q6H PRN PRN Reason: wheezing Calcium Carbonate (Calcium Carbonate 750 Mg Tab.Chew) 750 mg PO Q4H PRN PRN Reason: Heartburn Carvedilol (Carvedilol 12.5 Mg Tablet) 12.5 mg PO BID [facility]; Protocol Dextrose (Dextrose 50 % 25 Gm/50 Ml Syringe) 25 gm IVPUSH Q15M PRN; Protocol PRN Reason: per Hypoglycemia Standing Ord. Glucose (Glucose Gel 15 Gm Gel..Gram.) 15 gm PO Q15M PRN; Protocol PRN Reason: per Hypoglycemia Standing Ord. Hydralazine HCl (Hydralazine Hcl 50 Mg Tablet) 50 mg PO TID [facility]; Protocol Last Admin: 07/04/24 14:04 Dose: 50 mg Documented By: NETO Cefazolin Sodium/Dextrose (Ancef) 2 gm in 50 mls @ 100 mls/hr IV TuTh@1900 [facility] Cefazolin Sodium 3 gm/ Sodium (Chloride) 100 mls @ 200 mls/hr IV Sa@1900 [facility] Insulin Human Lispro (Insulin Lispro 100 Unit/Ml 3 Ml Vial) 0 unit SUBCUT QIDACHS [facility]; Protocol Last Admin: 07/04/24 11:32 Dose: Not Given Documented By: NETO Non-Admin Reason: refusing POC Lidocaine (Lidocaine 4 % Patch Adh..Patch) 1 patch TRANSDERMA DAILY PRN PRN Reason: Pain Magnesium Hydroxide (Milk Of Magnesia 30 Ml Oral.Susp) 30 ml PO DAILY PRN PRN Reason: Constipation Melatonin (Melatonin 3 Mg Tablet) 6 mg PO BEDTIME PRN PRN Reason: Insomnia Metoclopramide HCl (Metoclopramide Hcl 10 Mg/2 Ml Vial) 5 mg IVPUSH TIDAC [facility] Oxycodone HCl (Oxycodone Hcl Immed Release 5 Mg Tablet) 5 mg PO Q8H PRN PRN Reason: Pain, Moderate(Pain Scale 4-6) Last Admin: 07/04/24 11:53 Dose: 5 mg Documented By: NETO Pantoprazole Sodium (Pantoprazole Sodium 40 Mg/10 Ml Vial) 40 mg IVPUSH DAILY@0630 [facility] Last Admin: 07/04/24 12:47 Dose: 40 mg Documented By: NETO Sodium Chloride (0.9 % Sodium Chloride Flush 3 Ml Syringe) 3 ml IVFLUSH QSHIFT [facility] Last Admin: 07/04/24 12:47 Dose: 3 ml Documented By: NETO Labs 07/03/24 16:25 07/03/24 16:25 Labs: Laboratory Results - last 24 hr 07/03/24 16:25 MCV 84.2 MCH 28.5 MCHC 33.8 RDW 16.1 H Plt Count 97 L MPV 10.8 Immature Gran % (Auto) 0.5 H Neut % (Auto) 67.6 Lymph % (Auto) 14.3 L [place] % (Auto) 13.1 H Eos % (Auto) 3.6 Baso % (Auto) 0.9 Lymph # (Auto) 0.6 L [place] # (Auto) 0.6 Eos # (Auto) 0.2 Baso # (Auto) 0.0 Abs Immat Gran (auto) 0.02 Absolute Neuts (auto) 3.0 Absolute Nucleated RBC 0.000 Nucleated RBC % (auto) 0.0 Smear Tech's Comments VERIFIED Anion Gap 16 Estim Creat Clear Calc 13.7 Estimated GFR 9 Random Glucose 145 H Calcium 9.2 D Total Bilirubin 0.7 AST 28 ALT < 6 Alkaline Phosphatase 167 H Total Protein 8.7 H Albumin 4.0 Lipase 58 Assessment and Plan (1) Syncope and collapse: Status: Acute (2) ESRD on hemodialysis: Status: Acute Plan This has a 33-year-old female with pertinent history of ESRD on hemodialysis T/T/S, [id number] 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, peripheral arterial disease status post bilateral TMA, poorly controlled hypertension due to medication noncompliance, chronic hypoxemic respiratory failure on 3-4 L baseline supplemental oxygen, congestive heart failure with reduced ejection fraction, mood disorder, chronic pain with opioid seeking behavior who presents to the emergency department for evaluation of syncope Syncope: continue cardiac monitoring EKG with QT prolongation - chronic and not likely cause of syncope per cardiology Cardiology following, less likely cardiac in nature cardiac enzymes chronically elevated occurred around HD, ?fluid shift vs compliance with medication and low bp follow bp closely Nausea/vomiting: Likely viral gastroenteritis vs gastroparesis Imaging without any acute abnormality ok for antiemetics per cardiology reglan pre-meal, change to po when tolerating ESRD on hemodialysis: Nephrology following, continue HD schedule hyperkalemia resolved Hypertension: Blood pressure under adequate control Resume home carvedilol plus hydralazine Chronic hypoxemic respiratory failure: On baseline oxygen Congestive heart failure with reduced EF: Dialysis as above [id number] diabetes mellitus with diabetic polyneuropathy/retinopathy: POCs, SSI Mood disorder: Not on mood stabilizers Chronic pain with opioid seeking behavior: Will avoid IV Dilaudid as much as possible. On p.o. oxycodone chronic wounds wound care strep agalactiae bacteremia diagnosed last admission Continue Ancef post dialysis for total 6 weeks, end date July 11 DVT prophylaxis: Hold anticoagulation until platelets greater than 100 Full code Quality Stroke Does the patient have a stroke diagnosis?: No VTE Prior VTE?: No VTE Risk Level:: Medical - moderate - high VTE Device Contraindication: N/A - Device Ordered VTE Drug Contraindication: Treatment Not Indicated
--- NOTE | 2024-07-04 18:26 | P.CONNP_ITS ---
History of Present Illness Reason for Consult Consult date: 07/04/24 Chief Complaint Chief complaint: syncope History of Present Illness Narrative: RONNIE consulted for ESRD and HD management She was xferred from outpt HDU to [facility] d/t episode of unresponsiveness and low BP Overall feling better now but cont w abd pain and now getting pain meds PMH as noted below Review of Systems Review of Systems Constitutional : No Weight loss, No Fever, No Chills ENT/Mouth : No sore throat, No Rhinorrhea Eyes: No Swelling, No Redness Cardiovascular : No Chest Pain, No SOB, NoEdema Respiratory : No Cough, No Sputum, No Wheezing Gastrointestinal : Positive Nausea, Positive Vomiting, no Diarrhea, positive abdominal Pain, No Hematochezia, No Melena Genitourinary : No Dysuria, No Urinary Frequency, No Hematuria, No Urgency Musculoskeletal : No joint pain, No Myalgias, No Joint Swelling Skin : No Skin Lesions, No rash Neuro : No Weakness, No Numbness, No Dizziness, pos Headache All other systems reviewed and are negative. Yes all other systems are reviewed and are negative Constitutional: Reports as per HPI, Reports no additional constitutional complaints, Denies chills and Denies fever(s) Eyes: Reports as per HPI and Denies no additional eye complaints Denies system reviewed and no additional complaints, except as documented and Reports as per HPI Cardiovascular: Reports as per HPI, Reports no additional cardiovascular complaints, Denies acrocyanosis, Denies cool extremities, Denies chest pain, Reports syncope, Denies leg edema, Denies lightheadedness, Denies palpitations and Denies dyspnea Respiratory: Reports as per HPI, Denies no additional respiratory complaints, Reports cough and Denies dyspnea Gastrointestinal: Reports as per HPI, Denies no additional gastrointestinal complaints, Reports nausea and Reports vomiting Musculoskeletal: Reports no additional musculoskeletal complaints and Reports as per HPI Skin/Breast: Reports system reviewed and no additional complaints, except as docu Reports system reviewed and no additional complaints, except as documented, Reports as per HPI and Reports syncope Psychiatric: Reports no additional psychiatric complaints and Reports as per HPI Endocrine: Reports no additional endocrine complaints, Reports as per HPI and Denies palpitations Hematologic/Lymphatic: Reports no additional hematologic/lymphatic complaints and Reports as per HPI Allergic/Immunologic: Reports no additional allergic/immunologic complaints and Reports as per HPI [facility] Past Medical History Medical History (Updated 07/04/24 @ 11:39 by Brandyn Bhardwaj MD) ESRD (end stage renal disease) Hypotonic neurogenic bladder Diabetic polyneuropathy ESRD (end stage renal disease) on dialysis Hypertensive emergency Non-compliance with renal dialysis Decompensated heart failure Congestive heart failure Renal failure Hypertension, uncontrolled Medical non-compliance Pericarditis Unspecified hypertension, condition or complication Metabolic acidosis Gastroparesis End stage chronic kidney disease Chronic kidney disease Anemia Chronic foot ulcer Plantar ulcer of left foot Major depressive disorder, single episode, severe Non-compliance with renal dialysis Hypertensive urgency MDD (major depressive disorder), recurrent episode MDD (major depressive disorder) Renal failure Foot ulcer CKD (chronic kidney disease) Hypertension Diabetic foot Hyperkalemia Vomiting Renal failure Hypertension Migraine Chronic pain ESRD on dialysis Non-compliance with renal dialysis Hypertension End-stage renal disease (ESRD) Diabetic foot ulcer associated with type 2 diabetes mellitus Diabetes ESRD needing dialysis Cardiomyopathy HFrEF (heart failure with reduced ejection fraction) delivery delivered Anemia in chronic kidney disease (CKD) CKD (chronic kidney disease) Headache, migraine Abnormal finding on echocardiogram Elevated troponin Chest pain Acute worsening of stage 3 chronic kidney disease Generalized edema Sepsis Cellulitis Pleural effusion CHF (congestive heart failure) (~06/07/22) Tachycardia Atypical chest pain Bone infection PAD (peripheral artery disease) Severe anemia Cellulitis and abscess of foot DM foot ulcer Osteomyelitis Asthma Depression with anxiety Diabetic retinopathy Type 2 diabetes mellitus with hyperglycemia, with long-term current use of insulin Blind right eye Diabetes Back pain Family History Family History Mother Coronary artery disease Myocardial infarction Stroke Diabetes mellitus Father Myocardial infarction Surgical History Surgical History Tubal ligation status Previous section Hx laparoscopic cholecystectomy Hx of surgical procedure (~09/11/23) 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 Social History Social History Household Members: Family Household Members Other:: sister Housing: Apartment Are you a primary medicare sales representative to a significant other at home: No Do you presently have visiting nurse or other home services: No Unable to assess alcohol history related to: Unknown Alcohol intake: never Comment: pt. refusing high fall risk protocols. Patient Tobacco Use Status: Never used Tobacco e-Cigarette/Vaping Use: Never Used Second Hand Smoke Exposure: No Advance Directives Date on File: 09/04/23 service: No Current occupational status: unemployed and disabled Gender identity: Female Meds Allergies Allergy/AdvReac Type Severity Reaction Status Date / Time morphine [MORPHINE] Allergy Intermediate Itching Verified 07/03/24 15:38 azithromycin [From Zithromax] Allergy Hives Verified 06/25/24 17:51 gabapentin Allergy Facial Verified 06/25/24 17:51 Swelling tramadol Allergy Facial Verified 06/25/24 17:51 Swelling vancomycin Allergy Anaphylaxis Verified 06/25/24 17:51 Active Medications: Current Medications Acetaminophen (Acetaminophen 325 Mg Tablet) 650 mg PO Q6H PRN PRN Reason: Pain, Mild 1-3,fever,headache Albuterol Sulfate (Albuterol Sulfate 90 Mcg 8 Gm Inhaler) 2 puff INHALE Q6H PRN PRN Reason: wheezing Calcium Carbonate (Calcium Carbonate 750 Mg Tab.Chew) 750 mg PO Q4H PRN PRN Reason: Heartburn Carvedilol (Carvedilol 12.5 Mg Tablet) 12.5 mg PO BID [facility]; Protocol Dextrose (Dextrose 50 % 25 Gm/50 Ml Syringe) 25 gm IVPUSH Q15M PRN; Protocol PRN Reason: per Hypoglycemia Standing Ord. Glucose (Glucose Gel 15 Gm Gel..Gram.) 15 gm PO Q15M PRN; Protocol PRN Reason: per Hypoglycemia Standing Ord. Hydralazine HCl (Hydralazine Hcl 50 Mg Tablet) 50 mg PO TID [facility]; Protocol Last Admin: 07/04/24 14:04 Dose: 50 mg Cefazolin Sodium/Dextrose (Ancef) 2 gm in 50 mls @ 100 mls/hr IV TuTh@1900 [facility] Cefazolin Sodium 3 gm/ Sodium (Chloride) 100 mls @ 200 mls/hr IV Sa@1900 [facility] Insulin Human Lispro (Insulin Lispro 100 Unit/Ml 3 Ml Vial) 0 unit SUBCUT QIDACHS [facility]; Protocol Last Admin: 07/04/24 16:44 Dose: Not Given Lidocaine (Lidocaine 4 % Patch Adh..Patch) 1 patch TRANSDERMA DAILY PRN PRN Reason: Pain Magnesium Hydroxide (Milk Of Magnesia 30 Ml Oral.Susp) 30 ml PO DAILY PRN PRN Reason: Constipation Melatonin (Melatonin 3 Mg Tablet) 6 mg PO BEDTIME PRN PRN Reason: Insomnia Metoclopramide HCl (Metoclopramide Hcl 10 Mg/2 Ml Vial) 5 mg IVPUSH TIDAC [facility] Oxycodone HCl (Oxycodone Hcl Immed Release 5 Mg Tablet) 5 mg PO Q8H PRN PRN Reason: Pain, Moderate(Pain Scale 4-6) Last Admin: 07/04/24 11:53 Dose: 5 mg Pantoprazole Sodium (Pantoprazole Sodium 40 Mg/10 Ml Vial) 40 mg IVPUSH DAILY@0630 [facility] Last Admin: 07/04/24 12:47 Dose: 40 mg Sodium Chloride (0.9 % Sodium Chloride Flush 3 Ml Syringe) 3 ml IVFLUSH QSHIFT [facility] Last Admin: 07/04/24 12:47 Dose: 3 ml Home Medications ?Medication ?Instructions ?Recorded ?Confirmed ?Last Taken ?Type albuterol sulfate 90 mcg/actuation 2 puff inhalation Q6H PRN wheezing 01/15/24 07/03/24 Unknown History aerosol inhaler (Ventolin HFA) lidocaine 5 % topical patch 1 patch topical DAILY PRN Pain 01/15/24 07/03/24 02/24/24 History nitroglycerin 0.4 mg sublingual 0.4 mg sublingual DIRECTED PRN 01/15/24 07/03/24 Unknown History tablet Angina acetaminophen 325 mg tablet 650 mg PO Q4H PRN mild pain 03/11/24 07/03/24 Unknown History oxycodone 5 mg tablet 5 mg PO Q8H PRN Pain 05/25/24 07/03/24 06/25/24 History calcium carbonate (Tums) 200 mg PO TIDWM 07/03/24 07/03/24 Unknown History Physical Exam Vital Signs: Last Vital Signs Temp 97.2 F 07/04/24 15:00 Pulse 80 07/04/24 15:00 Resp 16 07/04/24 15:00 BP 144/69 H 07/04/24 15:00 Pulse Ox 100 07/04/24 15:00 O2 Del Method Nasal Cannula 07/04/24 15:00 O2 Flow Rate 2 07/04/24 15:00 BMI result Body Mass Index 29.3 Const General: comfortable, no acute distress, alert and awake Nutritional Appearance: average body habitus Orientation/consciousness: patient oriented x3 HEENT Other: Unremarkable Head: Yes normal to inspection Eyes Other: blind right eye Neck Neck: Yes normal visual inspection Chest Chest palpation & inspection: normal inspection of the chest Resp Effort & Inspection: normal respiratory effort, able to speak in complete sentences, no respiratory distress and no use of accessory muscles Auscultation: clear to auscultation bilaterally Cardio Palpation: normal PMI Rate: regular rate Heart sounds: S1 normal heart sound present, S2 normal heart sound present, no gallops, no murmurs and no rubs GI Inspection: No distended Palpation (GI): Soft to palpation Back/Spine/Pelvis Other: unremarkable Skin General skin exam: no rashes or lesions noted Neuro Other: grossly nonfocal General: patient oriented x3 Extrem Other: s/p b/l tma General: Yes normal to inspection Psych Mental Status: mental status grossly normal Results Lab Results 07/03/24 16:25 07/03/24 16:25 Lab results: Chemistry 07/03/24 16:25 Sodium 135 Potassium 3.8 D Carbon Dioxide 26 BUN 34 H Creatinine 5.36 H* Calcium 9.2 D Hematology 07/03/24 16:25 WBC 4.4 L Hgb 12.1 Plt Count 97 L Assessment and Plan (1) Syncope and collapse: Status: Acute (2) ESRD on hemodialysis: Status: Acute Plan This has a 33-year-old female with pertinent history of ESRD on hemodialysis T/T/S, [id number] 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, peripheral arterial disease status post bilateral TMA, poorly controlled hypertension due to medication noncompliance, chronic hypoxemic respiratory failure on 3-4 L baseline supplemental oxygen, congestive heart failure with reduced ejection fraction, mood disorder, chronic pain with opioid seeking behavior who presents to the emergency department for evaluation of syncope ESRD: TTS [place] [facility] Episode of unresponsive/low BP at HD: resolved Abd pain: h/o polysub use in past H/O CRBSI: cont ABx 07/11 as noted REC: ocnt HD TTS, meds as noted including ABx Procedures Date of Service Date of Service: 07/04/24
[2024-07-04] MEDS: Metoclopramide HCl 10 MG/2 ML VIAL 5 MG IVPUSH (20:24)
--- NOTE | 2024-07-04 20:47 | PC.NURSE ---
Addendum entered by María Puckett RN 07/05/24 05:21: Patient transported to dialysis in stable condition at 05:20. Addendum entered by María Puckett RN 07/05/24 04:18: 03:00 hour: BP again elevated, 174/80. Pt remains asymptomatic. MD notified. No new orders at this time. Addendum entered by María Puckett RN 07/05/24 02:37: Patient rang call moore and requested Benadryl, pain meds, and cereal. Pt declined ordered prn po oxycodone, accepted the cereal, and was given 1x benadryl IVP now that pt is more wakeful/less drowsy. Addendum entered by María Puckett RN 07/05/24 02:15: BP reassessed this hour per MD request s/p hydralazine. BP 144/77 HR 91. No acute complaints offered at this time. Addendum entered by María Puckett RN 07/04/24 23:27: Patient BP remains elevated on scheduled vitals this hour, BP 193/94. Pt asymptomatic, again refused manual BP. Covering Dr. Joseph notified with orders for IVP hydralazine. Original Note: Assumed care of this patient at 19:00. Patient is resistive to care and vague when answering most assessment questions. BP elevated on cuff pressure. Pt refused manual BP despite education attempts. Pt also refused both scheduled BP meds as well as her POC this evening. Pt refuses high falls measures except yellow socks and signage, despite having blindness for which she states she can only see shadows and TMA hx to both feet. Pt denied headache but made vague complaints of generalized pain and stated I don't take pills. Who is this doctor covering? I want pain meds and Benadryl IV . Patient is resting in bed with no apparent distress noted. Covering Dr. Joseph notified.
[2024-07-04] MEDS: HYDROmorphone HCl 0.5 MG/0.5 ML SYRINGE IVPUSH (21:28)
[2024-07-04] MEDS: hydrALAZINE HCl 20 MG/ML VIAL 10 MG IVPUSH (23:31)
[2024-07-05 02:14] VITALS: BP 144/77; PULSE 91
[2024-07-05] MEDS: diphenhydrAMINE HCL 50 MG/ML VIAL 25 MG IVPUSH ×4 (02:33→21:59)
[2024-07-05 03:01] VITALS: BP 174/80; PULSE 94; RESP 18; TEMP 36.8; O2SAT 100
[2024-07-05] MEDS: Pantoprazole Sodium 40 MG/10 ML VIAL IVPUSH (05:16)
--- NOTE | 2024-07-05 09:07 | P.PNIM_ITS ---
Subjective Subjective Date of Service: 07/05/24 Interval History: seen and examined this morning follow up for syncope reporting nausea and vomiting Review of Systems Review of Systems: Yes all other systems are reviewed and are negative Constitutional Constitutional: Denies chills and Denies fever(s) Physical Exam 2 Vital Signs: Vital Signs: Last Vital Signs Temp 98.2 F 07/05/24 03:01 Pulse 94 07/05/24 03:01 Resp 18 07/05/24 03:01 BP 174/80 H 07/05/24 03:01 Pulse Ox 100 07/05/24 03:01 O2 Del Method Nasal Cannula 07/05/24 03:01 O2 Flow Rate 3 07/05/24 03:01 BMI result Body Mass Index 29.3 Appearing in no acute distress lung sounds are clear to auscultation heart regular rate rhythm, clear S1, S2 positive bowel sounds, abdomen is soft, nontender neuro patient is alert x3, no focal deficits Objective Data Active Medications Acetaminophen (Acetaminophen 325 Mg Tablet) 650 mg PO Q6H PRN PRN Reason: Pain, Mild 1-3,fever,headache Albuterol Sulfate (Albuterol Sulfate 90 Mcg 8 Gm Inhaler) 2 puff INHALE Q6H PRN PRN Reason: wheezing Calcium Carbonate (Calcium Carbonate 750 Mg Tab.Chew) 750 mg PO Q4H PRN PRN Reason: Heartburn Carvedilol (Carvedilol 12.5 Mg Tablet) 12.5 mg PO BID [facility]; Protocol Last Admin: 07/04/24 20:09 Dose: Not Given Documented By: MAI Non-Admin Reason: Patient Refused Dextrose (Dextrose 50 % 25 Gm/50 Ml Syringe) 25 gm IVPUSH Q15M PRN; Protocol PRN Reason: per Hypoglycemia Standing Ord. Glucose (Glucose Gel 15 Gm Gel..Gram.) 15 gm PO Q15M PRN; Protocol PRN Reason: per Hypoglycemia Standing Ord. Hydralazine HCl (Hydralazine Hcl 50 Mg Tablet) 50 mg PO TID [facility]; Protocol Last Admin: 07/04/24 20:09 Dose: Not Given Documented By: MAI Non-Admin Reason: Patient Refused Cefazolin Sodium/Dextrose (Ancef) 2 gm in 50 mls @ 100 mls/hr IV TuTh@1900 [facility] Cefazolin Sodium 3 gm/ Sodium (Chloride) 100 mls @ 200 mls/hr IV Sa@1900 [facility] Insulin Human Lispro (Insulin Lispro 100 Unit/Ml 3 Ml Vial) 0 unit SUBCUT QIDACHS [facility]; Protocol Last Admin: 07/05/24 07:58 Dose: Not Given Documented By: BEAU Non-Admin Reason: Patient Refused Lidocaine (Lidocaine 4 % Patch Adh..Patch) 1 patch TRANSDERMA DAILY PRN PRN Reason: Pain Magnesium Hydroxide (Milk Of Magnesia 30 Ml Oral.Susp) 30 ml PO DAILY PRN PRN Reason: Constipation Melatonin (Melatonin 3 Mg Tablet) 6 mg PO BEDTIME PRN PRN Reason: Insomnia Metoclopramide HCl (Metoclopramide Hcl 10 Mg/2 Ml Vial) 5 mg IVPUSH TIDAC [facility] Last Admin: 07/04/24 20:24 Dose: 5 mg Documented By: MAI Oxycodone HCl (Oxycodone Hcl Immed Release 5 Mg Tablet) 5 mg PO Q8H PRN PRN Reason: Pain, Moderate(Pain Scale 4-6) Last Admin: 07/04/24 11:53 Dose: 5 mg Documented By: NETO Pantoprazole Sodium (Pantoprazole Sodium 40 Mg/10 Ml Vial) 40 mg IVPUSH DAILY@0630 [facility] Last Admin: 07/05/24 05:16 Dose: 40 mg Documented By: MAI Sodium Chloride (0.9 % Sodium Chloride Flush 3 Ml Syringe) 3 ml IVFLUSH QSHIFT [facility] Last Admin: 07/04/24 20:24 Dose: 3 ml Documented By: MAI Labs 07/03/24 16:25 07/03/24 16:25 Assessment and Plan (1) Syncope and collapse: Status: Acute (2) ESRD on hemodialysis: Status: Acute Plan 33-year-old female with pertinent history of ESRD on hemodialysis T/T/S, [id number] 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, peripheral arterial disease status post bilateral TMA, poorly controlled hypertension due to medication noncompliance, chronic hypoxemic respiratory failure on 3-4 L baseline supplemental oxygen, congestive heart failure with reduced ejection fraction, mood disorder, chronic pain with opioid seeking behavior who presents to the emergency department for evaluation of syncope Syncope continue cardiac monitoring EKG with QT prolongation>chronic and not likely cause of syncope per cardiology Cardiology following>less likely cardiac in nature cardiac enzymes chronically elevated occurred around HD, fluid shift vs compliance with medication and low bp follow bp closely Nausea/vomiting Likely viral gastroenteritis vs gastroparesis Imaging without any acute abnormality ok for antiemetics per cardiology reglan pre-meal, change to po when tolerating ESRD on hemodialysis Nephrology following, continue HD t,, schedule hyperkalemia resolved Hypertension Blood pressure under adequate control carvedilol plus hydralazine Chronic hypoxemic respiratory failure On baseline oxygen Chronic Congestive heart failure with reduced EF Dialysis as above [id number] diabetes mellitus with diabetic polyneuropathy/retinopathy POCs, SSI Mood disorder Not on mood stabilizers Chronic pain with opioid seeking behavior Will avoid IV Dilaudid as much as possible. On p.o. oxycodone chronic wounds wound care Strep agalactiae bacteremia diagnosed last admission Continue Ancef post dialysis for total 6 weeks, end date July 11 DVT prophylaxis: Hold anticoagulation until platelets greater than 100 Full code Quality Stroke Does the patient have a stroke diagnosis?: No VTE Prior VTE?: No VTE Risk Level:: Medical - moderate - high VTE Device Contraindication: N/A - Device Ordered VTE Drug Contraindication: Treatment Not Indicated
[2024-07-05] MEDS: HYDROmorphone HCl 0.5 MG/0.5 ML SYRINGE IVPUSH ×3 (10:08→21:59)
[2024-07-05] MEDS: 0.9 % Sodium Chloride Flush 3 ML SYRINGE IVFLUSH ×3 (10:11→22:00)
[2024-07-05 11:10] VITALS: BP 138/65; PULSE 88; RESP 18; TEMP 36.2; O2SAT 98
--- OUTSIDE RECORDS SUMMARY | 2024-07-05 14:55 | XMS_ITS | Clinical Summary ---
Author Organization [facility] Address [address] [address] Phone Care Team Providers Care Lockstitch Coat Joiner Name Role Phone Katlyn Manzanofer Primary Care [...] Encounters Date Type Department Care Team Description 07/03/2024 Orders Only [facility] [place] [id number] [address] Ed Carver MD 07/01/2024 Treatment [facility] [address] [address] Ed Carver MD End stage renal disease; Dependence on renal dialysis 06/19/2024 Treatment [facility] [address] [address] Ed Carver MD End stage renal disease; Dependence on renal dialysis 06/17/2024 Treatment [facility] [address] [address] Ed Carver MD End stage renal disease; Dependence on renal dialysis 06/14/2024 Treatment [facility] [address] [address] Ed Carver MD End stage renal disease; Dependence on renal dialysis 06/07/2024 Treatment [facility] [address] [address] Ed Carver MD End stage renal disease; Dependence on renal dialysis 05/22/2024 Treatment [facility] [address] [address] Ed Carver MD End stage renal disease; Dependence on renal dialysis 05/13/2024 Treatment [facility] [address] [address] Ed Carver MD End stage renal disease; Dependence on renal dialysis 05/08/2024 Treatment [facility] [address] [address] Ed Carver MD End stage renal disease; Dependence on renal dialysis 05/03/2024 Treatment [facility] [address] [address] Ed Carver MD End stage renal disease; Dependence on renal dialysis 04/22/2024 Treatment [facility] [address] [address] Ed Carver MD 04/19/2024 Treatment [facility] [address] [address] Ed Carver MD 04/12/2024 Treatment [facility] [address] [address] Ed Carver MD from Last 3 Months [...] Procedure Name Priority Date/Time Associated Diagnosis Comments TRANSFERRIN SATURATION Routine 3:00 AM EDT PROTEIN, TOTAL, SERUM Routine 07/03/2024 3:00 AM EDT MAGNESIUM Routine 07/03/2024 3:00 AM EDT PATTI () Routine 07/03/2024 3:00 AM EDT ELECTROLYTE PANEL Routine 07/03/2024 3:0 0 AM EDT LACTATE DEHYDROGENASE Routine 07/03/2024 3:00 AM EDT CREATININE, SERUM Routine 07/03/2024 3:0 0 AM EDT GLUCOSE, RANDOM Routine 07/03/2024 3:00 AM EDT BILIRUBIN, TOTAL Routine 07/03/2024 3:00 AM EDT BUN/CREATININE RATIO Routine 07/03/2024 3:00 AM EDT ALT Routine 07/03/2024 3:00 AM EDT AST Routine 07/03/2024 3:00 AM EDT CALCIUM PHOSPHORUS PRODUCT, ADJUSTED (HC) Routine 07/03/2024 3:00 AM EDT ALKALINE PHOSPHATASE Routine 07/03/2024 3:00 AM EDT HEPATITIS B SURFACE ANTIGEN W/REFL CONFIRM Routine 07/03/2024 3:00 AM EDT FERRITIN Routine 07/03/2024 3:00 AM EDT KT/V NATURAL LOG, URR (HC) Routine 07/03/2024 3:00 AM EDT CBC AND DIFFERENTIAL Routine 07/03/2024 3:00 AM EDT HEMOGLOBIN Routine 06/21/2024 3:00 AM EDT COLLECTION [...] URR (HC) Routine 04/10/2024 3:00 AM EST from Last 3 Months Results * LIH (07/03/2024 3:00 AM EDT) Only the most recent of7 resultswithin the time period is included. Lipemia Normal Normal [facility] Icterus Normal Normal [facility] Hemolysis Normal Normal [facility] 07/03/2024 3:00 AM EDT 07/04/2024 5:18 PM EDT Ed Carver MD LAB HISTORICA [id number] RESULTS Final Result Performing Organization Address [facility] Co de Phone Number APS [facility] [address] [place] [address] * (ABNORMAL) Kt/V Natural Log, URR (07/03/2024 3:00 AM EDT) Only the most recent of4 resultswithin the time period is included. Pathologist [facility] Treatment Time 188 min [facility] Pre-Weight, lb 81.2 kg [facility] Post-Weight, lb 79.2 kg [facility] BUN Post Dialysis 24 7 - 25 mg/dL [facility] BUN 73(H) 7 - 25 mg/dL [facility] UREA REDUCTION RATIO (%) 67 >=65 % [facility] Kt/V Natural Log 1.26 >=1.2 [facility] Ultrafiltration Rate 8 <=13 mL/kg/hr [facility] Comment: Recommend achieving Ultrafiltration Rate (UFR) <=10 mL/kg/hr References: Estelle GARCIA et al. Kidney Int. 2010; 79(2):250-257 07/03/2024 3:00 AM EDT 07/04/2024 5:18 PM EDT Ed Carver MD LAB [id number] RESULTS Edited Result - Final Performing Organization Address [facility] Co de Phone Number [facility] [address] [place] [address] * (ABNORMAL) Calcium Phosphorus Product, Adjusted (07/03/2024 3:00 AM EDT) Only the most recent of3 resultswithin the time period is included. Albumin 4.0 3.6 - 5.4 g/dL [facility] Calcium 8.2(L) 8.6 - 10.3 mg/dL [facility] Phosphorus, Serum 10.1(H) 2.5 - 5.0 mg/dL [facility] Ca*PO4 82.8(A) <55.0 mg2/dL2 [facility] Calcium, Adjusted Total 8.2(L) 8.6 - 10.3 mg/dL [facility] CA*PO4 CORRCTD 82.8(A) <55.0 mg2/dL2 [facility] 07/03/2024 3:00 AM EDT 07/04/2024 5:18 PM EDT us Ed Carver MD LAB HISTORICA [id number] RESULTS Final Result Performing Organization Address [facility] de Phone Number [facility] [address] [place] [address] * Hepatitis B Surface Ag w/Reflex Confirmation (07/03/2024 3:00 AM EDT) Only the most recent of3 resultswithin the time period is included. Hep B Surface Antigen Negative Negative [facility] 07/03/2024 3:00 AM EDT 07/04/2024 5:18 PM EDT Ed Carver MD LAB BLOOD ORDERABLES Final Result Performing Organization Address [facility] de Phone Number [facility] [address] [place] [address] * BUN/CREATININE RATIO (07/03/2024 3:00 AM EDT) BUN/Creatinine Ratio 7.3 <=23.0 [facility] 07/03/2024 3:00 AM EDT 07/04/2024 5:18 PM EDT us Ed Carver MD LAB HISTORICA [id number] RESULTS Final Result Performing Organization Address [facility]/State/ZIP Co de Phone Number [facility] [address] [place] [address] * (ABNORMAL) TSAT (07/03/2024 3:00 AM EDT) Only the most recent of3 resultswithin the time period is included. Iron 78 50 - 170 ug/dL [facility] Transferrin 184(L) 250 - 380 mg/dL [facility] TIBC 258 211 - 406 ug/dL [facility] Iron Saturation (TSat) 30 22 - 52 % [facility] 07/03/2024 3:00 AM EDT 07/04/2024 5:18 PM EDT us Ed Carver MD LAB BLOOD ORDERABLES Final Result [facility] [address] [place] [address] * (ABNORMAL) CBC and Differential (07/03/2024 3:00 AM EDT) Only the most recent of3 resultswithin the time period is included. Pathologist [facility] DIFFERENTIAL MANUAL, 2 Not Indicated [facility] White Blood Cells 5.5 4.0 - 10.0 K/uL [facility] RBC 3.98 3.93 - 5.22 M/uL [facility] Hgb 11.4 11.2 - 15.7 g/dL [facility] Hemoglobin x 3 34.2 33.6 - 47.1 g/dL [facility] Hematocrit 36.2 34.1 - 44.9 % [facility] MCV 91.0 79.4 - 94.8 fL [facility] MCH 28.6 25.6 - 32.2 pg [facility] MCHC 31.5(L) 32.2 - 35.5 g/dL [facility] RDW 15.9(H) 11.7 - 14.4 % [facility] Platelets 113(L) 182 - 369 K/uL [facility] Neutrophils Relative 58.1 34.0 - 71.1 % [facility] Lymphocytes Relative 19.8 19.3 - 51.7 % [facility] Monocytes 17.0(H) 4.7 - 12.5 % [facility] Eosinophils Relative 4.2 0.7 - 5.8 % [facility] Basophils Relative 0.5 0.1 - 1.2 % [facility] Immature Granulocytes 0.4 0.0 - 1.0 % [facility] 07/03/2024 3:00 AM EDT 07/04/2024 5:16 PM EDT Ed Carver MD LAB BLOOD ORDERABLES Final Result Performing Organization Address [facility] Co de Phone Number [facility] [address] [place] [address] * (ABNORMAL) ALT (07/03/2024 3:00 AM EDT) Only the most recent of3 resultswithin the time period is included. ALT (SGPT) <7(L) 10 - 49 U/L [facility] 07/03/2024 3:00 AM EDT 07/04/2024 5:18 PM EDT Ed Carver MD LAB BLOOD ORDERABLES Final Result Performing Organization Address [facility] de Phone Number [facility] [address] [place] [address] * AST (07/03/2024 3:00 AM EDT) Only the most recent of3 resultswithin the time period is included. AST (SGOT) 25 <34 U/L [facility] 07/03/2024 3:00 AM EDT 07/04/2024 5:18 PM EDT Ed Carver MD LAB BLOOD ORDERABLES Final Result Performing Organization Address [facility] Co de Phone Number [facility] [address] [place] [address] * Protein, total (07/03/2024 3:00 AM EDT) Only the most recent of3 resultswithin the time period is included. Total Protein 8.1 6.4 - 8.9 g/dL [facility] 07/03/2024 3:00 AM EDT 07/04/2024 5:18 PM EDT us Ed Carver MD LAB BLOOD ORDERABLES Final Result Performing Organization Address [facility] Co de Phone Number [facility] [address] [place] [address] * (ABNORMAL) Alkaline phosphatase (07/03/2024 3:00 AM EDT) Only the most recent of3 resultswithin the time period is included. Alkaline Phosphatase 169(H) 46 - 116 U/L [facility] 07/03/2024 3:00 AM EDT 07/04/2024 5:18 PM EDT us Ed Carver MD LAB BLOOD ORDERABLES Final Result Performing Organization Address [facility] de Phone Number [facility] [address] [place] [address] * Magnesium (07/03/2024 3:00 AM EDT) Only the most recent of3 resultswithin the time period is included. Magnesium 2.5 1.9 - 2.7 mg/dL [facility] 07/03/2024 3:00 AM EDT 07/04/2024 5:18 PM EDT us Ed Carver MD LAB BLOOD ORDERABLES Final Result Performing Organization Address [facility] de Phone Number [facility] [address] [place] [address] * (ABNORMAL) Lactate dehydrogenase (07/03/2024 3:00 AM EDT) Only the most recent of3 resultswithin the time period is included. LDH 284(H) 120 - 246 U/L [facility] 07/03/2024 3:00 AM EDT 07/04/2024 5:18 PM EDT us Ed Carver MD LAB BLOOD ORDERABLES Final Result Performing Organization Address [facility] de Phone Number [facility] [address] [place] [address] * (ABNORMAL) Glucose, random (07/03/2024 3:00 AM EDT) Only the most recent of3 resultswithin the time period is included. Glucose 138(H) 70 - 99 mg/dL [facility] Comment: ADA guidelines outline the following fasting glucose ranges: Normal: ? <100 Prediabetes: 100-125 Diabetes: ? >125 07/03/2024 3:00 AM EDT 07/04/2024 5:18 PM EDT us Ed Carver MD LAB BLOOD ORDERABLES Final Result Performing Organization Address [facility] de Phone Number [facility] [address] [place] [address] * Ferritin (07/03/2024 3:00 AM EDT) Only the most recent of3 resultswithin the time period is included. Ferritin 80 10 - 291 ng/mL [facility] 07/03/2024 3:00 AM EDT 07/04/2024 5:18 PM EDT us Ed Carver MD LAB BLOOD ORDERABLES Final Result Performing Organization Address [facility] de Phone Number [facility] [address] [place] [address] * (ABNORMAL) Creatinine, serum (07/03/2024 3:00 AM EDT) Only the most recent of3 resultswithin the time period is included. Creatinine 9.98(H) 0.55 - 1.02 mg/dL [facility] 07/03/2024 3:00 AM EDT 07/04/2024 5:18 PM EDT us Ed Carver MD LAB BLOOD ORDERABLES Final Result Performing Organization Address [facility] de Phone Number [facility] [address] [place] [address] * Bilirubin, total (07/03/2024 3:00 AM EDT) Only the most recent of3 resultswithin the time period is included. Total Bilirubin 0.3 0.3 - 1.2 mg/dL [facility] 07/03/2024 3:00 AM EDT 07/04/2024 5:18 PM EDT Ed Carver MD LAB BLOOD ORDERABLES Final Result Performing Organization Address [facility] de Phone Number [facility] [address] [place] [address] * (ABNORMAL) Electrolyte panel (07/03/2024 3:00 AM EDT) Only the most recent of3 resultswithin the time period is included. Sodium 135(L) 136 - 145 mEq/L [facility] Potassium 4.3 3.4 - 5.0 mEq/L [facility] Chloride 96(L) 98 - 107 mEq/L [facility] Bicarbonate (CO2) 24 21 - 31 mEq/L [facility] Anion Gap 15(H) 3 - 14 mEq/L [facility] 07/03/2024 3:00 AM EDT 07/04/2024 5:18 PM EDT Ed Carver MD LAB BLOOD ORDERABLES Final Result Performing Organization Address [facility] de Phone Number [facility] [address] [place] [address] * Collection Date (06/21/2024 3:00 AM EDT) Only the most recent of4 resultswithin the time period is included. Collection Date See Comment [facility] Comment: Patient sample received may exceed specimen stability, based on the collection date electronically provided. ??When reviewing patient results, verify collection information and consider specimen stability before acting on any critical or panic results. 06/21/2024 3:00 AM EDT us Ed Carver MD LAB HISTORICA [id number] RESULTS Final Result Performing Organization Address [facility] de Phone Number [facility] [address] [place] [address] * Hemoglobin (06/21/2024 3:00 AM EDT) Only the most recent of5 resultswithin the time period is included. Hgb 11.6 11.2 - 15.7 g/dL [facility] Hemoglobin x 3 34.8 33.6 - 47.1 g/dL [facility] 06/21/2024 3:00 AM EDT 06/24/2024 1:14 PM EDT us Ed Carver MD LAB BLOOD ORDERABLES Final Result Performing Organization Address [facility] de Phone Number [facility] [address] [place] [address] * CO2 (06/07/2024 3:00 AM EDT) Bicarbonate (CO2) 24 21 - 31 mEq/L [facility] 06/07/2024 3:00 AM EDT 06/10/2024 12:19 PM EDT us Ed Carver MD LAB BLOOD ORDERABLES Final Result Performing Organization Address [facility] de Phone Number [facility] [address] [place] [address] * PTH, Intact (06/05/2024 3:00 AM EDT) [...] BLOOD ORDERABLES Final Result Performing Organization Address [facility] de Phone Number VIDHYA ASCKEVIN [facility] [address] [place] [address] * (ABNORMAL) Hemoglobin A1c (06/05/2024 3:00 AM [...] BLOOD ORDERABLES Final Result Performing Organization Address [facility] de Phone Number VIDHYA ASCKEVIN [facility] [address] [place] [address] * (ABNORMAL) Lipid panel (06/05/2024 3:00 AM [...] BLOOD ORDERABLES Final Result Performing Organization Address City/[facility]/ZIP Co de Phone Number [facility] [address] [place] [address] * (ABNORMAL) Phosphorus (05/13/2024 3:00 AM EDT) Only the most recent of2 resultswithin the time period is included. Phosphorus, Serum 11.5(H) 2.5 - 5.0 mg/dL [facility] 05/13/2024 3:00 AM EDT 05/14/2024 12:27 PM EDT Ed Carver MD LAB BLOOD ORDERABLES Final Result Performing Organization Address [facility] Co de Phone Number [facility] [address] [place] [address] from Last 3 Months Insurance [facility] ([id number]) [facility] ([id number]) [facility] ([id number]) Care Teams Lockstitch Coat Joiner Relationship Specialty Start Date End Date Alyssa Manzano DO [address] [place] [id number] PCP - General Family Medicine 03/02/21
--- OUTSIDE RECORDS SUMMARY | 2024-07-05 14:55 | XMS_ITS | Clinical Summary ---
Author Organization [facility] Address [address] [place] [address] Care Team Providers Care Seed Service Advisor Name Role Phone Betty Nugent MD Primary Care Provider [phone] Surgical History Surgery Date Site/Laterality Comments SECTION [...] age to complete this topic Care Teams Seed Service Advisor Relationship Specialty Start Date End Date Betty Nugent MD [address] [place] PCP - General Internal Medicine 01/10/18
--- OUTSIDE RECORDS SUMMARY | 2024-07-05 14:55 | XMS_ITS | Encounter Summary ---
Author Organization [facility] Address [address] [address] Phone Care Team Providers Care Maori Physiotherapist Name Role Phone PriscaAlyssa lopez Primary Care Provider Unava ilable Encounter Details Date Type Department Care Team (Late st Contact Info) Description 07/03/2024 Orders Only [facility] [address] [phone] Ed Carver MD [address] [phone] Social History Tobacco Use Types Packs/Day Years Used Date Smoking Tobacco: Never Assessed Comments Unknown Sex and Gender Information Value Date Recorded Sex Assigned at Not on file Legal Sex Female 4:53 PM EST Gender Identity Not on file Sexual Orientation Not on file documented as of this encounter Plan of Treatment Not on file documented as of this encounter Procedures Procedure Name Priority Date/Time Associated Diagnosis Comments LIH () Routine 07/03/2024 3:00 AM EDT KT/V NATURAL LOG, URR () Routine 07/03/2024 3:00 AM EDT CALCIUM PHOSPHORUS PRODUCT, ADJUSTED () Routine 07/03/2024 3:00 AM EDT HEPATITIS B SURFACE ANTIGEN W/REFL CONFIRM Routine 07/03/2024 3:00 AM EDT BUN/CREATININE RATIO Routine 07/03/2024 3:00 AM EDT TRANSFERRIN SATURATION Routine 3:00 AM EDT CBC AND DIFFERENTIAL Routine 07/03/2024 3:00 AM EDT ALT Routine 07/03/2024 3:00 AM EDT AST Routine 07/03/2024 3:00 AM EDT PROTEIN, TOTAL, SERUM Routine 07/03/2024 3:00 AM EDT ALKALINE PHOSPHATASE Routine 07/03/2024 3:00 AM EDT MAGNESIUM Routine 07/03/2024 3:00 AM EDT LACTATE DEHYDROGENASE Routine 07/03/2024 3:00 AM EDT GLUCOSE, RANDOM Routine 07/03/2024 3:00 AM EDT FERRITIN Routine 07/03/2024 3:00 AM EDT CREATININE, SERUM Routine 07/03/2024 3:0 0 AM EDT BILIRUBIN, TOTAL Routine 07/03/2024 3:00 AM EDT ELECTROLYTE PANEL Routine 07/03/2024 3:0 0 AM EDT documented in this encounter Results * (ABNORMAL) TSAT (07/03/2024 3:00 AM EDT) Iron 78 50 - 170 ug/dL [facility] Transferrin 184(L) 250 - 380 mg/dL [facility] TIBC 258 211 - 406 ug/dL [facility] Iron Saturation (TSat) 30 22 - 52 % [facility] 07/03/2024 3:00 AM EDT 07/04/2024 5:18 PM EDT Ed Carver MD LAB BLOOD ORDERABLES Final Result Performing Organization Address City/[facility] de Phone Number APS [facility] [address] [place] [address] * Protein, total (07/03/2024 3:00 AM EDT) Total Protein 8.1 6.4 - 8.9 g/dL [facility] 07/03/2024 3:00 AM EDT 07/04/2024 5:18 PM EDT us Ed Carver MD LAB BLOOD ORDERABLES Final Result Performing Organization Address [facility] de Phone Number [facility] [address] [place] [address] * Magnesium (07/03/2024 3:00 AM EDT) Pathologist [facility] Magnesium 2.5 1.9 - 2.7 mg/dL [facility] 07/03/2024 3:00 AM EDT 07/04/2024 5:18 PM EDT us Ed Carver MD LAB BLOOD ORDERABLES Final Result Performing Organization Address [facility] de Phone Number [facility] [address] [place] [address] * LIH (07/03/2024 3:00 AM EDT) Pathologist [facility] Lipemia Normal Normal [facility] Icterus Normal Normal [facility] Hemolysis Normal Normal [facility] 07/03/2024 3:00 AM EDT 07/04/2024 5:18 PM EDT Ed Carver MD LAB HISTORICA [id number] RESULTS Final Result Performing Organization Address [facility] de Phone Number [facility] [address] [place] [address] * (ABNORMAL) Electrolyte panel (07/03/2024 3:00 AM EDT) Sodium 135(L) 136 - 145 mEq/L [facility] Potassium 4.3 3.4 - 5.0 mEq/L [facility] Chloride 96(L) 98 - 107 mEq/L [facility] Bicarbonate (CO2) 24 21 - 31 mEq/L [facility] Anion Gap 15(H) 3 - 14 mEq/L [facility] 07/03/2024 3:00 AM EDT 07/04/2024 5:18 PM EDT Ed Carver MD LAB BLOOD ORDERABLES Final Result Performing Organization Address [facility] de Phone Number [facility] [address] [place] [address] * (ABNORMAL) Lactate dehydrogenase (07/03/2024 3:00 AM EDT) LDH 284(H) 120 - 246 U/L [facility] 07/03/2024 3:00 AM EDT 07/04/2024 5:18 PM EDT Ed Carver MD LAB BLOOD ORDERABLES Final Result Performing Organization Address [facility] de Phone Number [facility] [address] [place] [address] * (ABNORMAL) Creatinine, serum (07/03/2024 3:00 AM EDT) Creatinine 9.98(H) 0.55 - 1.02 mg/dL [facility] 07/03/2024 3:00 AM EDT 07/04/2024 5:18 PM EDT Ed Carver MD LAB BLOOD ORDERABLES Final Result Performing Organization Address [facility] de Phone Number [facility] [address] [place] [address] * (ABNORMAL) Glucose, random (07/03/2024 3:00 AM EDT) Glucose 138(H) 70 - 99 mg/dL [facility] Comment: ADA guidelines outline the following fasting glucose ranges: Normal: ? <100 Prediabetes: 100-125 Diabetes: ? >125 07/03/2024 3:00 AM EDT 07/04/2024 5:18 PM EDT us Ed Carver MD LAB BLOOD ORDERABLES Final Result Performing Organization Address [facility] de Phone Number [facility] [address] [place] [address] * Bilirubin, total (07/03/2024 3:00 AM EDT) Total Bilirubin 0.3 0.3 - 1.2 mg/dL [facility] 07/03/2024 3:00 AM EDT 07/04/2024 5:18 PM EDT us Ed Carver MD LAB BLOOD ORDERABLES Final Result Performing Organization Address [facility] de Phone Number [facility] [address] [place] [address] * BUN/CREATININE RATIO (07/03/2024 3:00 AM EDT) BUN/Creatinine Ratio 7.3 <=23.0 [facility] 07/03/2024 3:00 AM EDT 07/04/2024 5:18 PM EDT us Ed Carver MD LAB HISTORICA [id number] RESULTS Final Result Performing Organization Address [facility] de Phone Number [facility] [address] [place] [address] * (ABNORMAL) ALT (07/03/2024 3:00 AM EDT) ALT (SGPT) <7(L) 10 - 49 U/L [facility] 07/03/2024 3:00 AM EDT 07/04/2024 5:18 PM EDT us Ed Carver MD LAB BLOOD ORDERABLES Final Result [facility] [address] [place] [address] * AST (07/03/2024 3:00 AM EDT) AST (SGOT) 25 <34 U/L [facility] 07/03/2024 3:00 AM EDT 07/04/2024 5:18 PM EDT Ed Carver MD LAB BLOOD ORDERABLES Final Result Performing Organization Address [facility] Co de Phone Number [facility] [address] [place] [address] * (ABNORMAL) Calcium Phosphorus Product, Adjusted (07/03/2024 3:00 AM EDT) Albumin 4.0 3.6 - 5.4 g/dL [facility] Calcium 8.2(L) 8.6 - 10.3 mg/dL [facility] Phosphorus, Serum 10.1(H) 2.5 - 5.0 mg/dL [facility] Ca*PO4 82.8(A) <55.0 mg2/dL2 [facility] Calcium, Adjusted Total 8.2(L) 8.6 - 10.3 mg/dL [facility] CA*PO4 CORRCTD 82.8(A) <55.0 mg2/dL2 [facility] 07/03/2024 3:00 AM EDT 07/04/2024 5:18 PM EDT Ed Carver MD LAB HISTORICA [id number] RESULTS Final Result Performing Organization Address City/[facility] Co de Phone Number [facility] [address] [place] [address] * (ABNORMAL) Alkaline phosphatase (07/03/2024 3:00 AM EDT) Alkaline Phosphatase 169(H) 46 - 116 U/L [facility] 07/03/2024 3:00 AM EDT 07/04/2024 5:18 PM EDT us Ed Carver MD LAB BLOOD ORDERABLES Final Result Performing Organization Address [facility] de Phone Number [facility] [address] [place] [address] * Hepatitis B Surface Ag w/Reflex Confirmation (07/03/2024 3:00 AM EDT) Hep B Surface Antigen Negative Negative [facility] 07/03/2024 3:00 AM EDT 07/04/2024 5:18 PM EDT us Ed Carver MD LAB BLOOD ORDERABLES Final Result Performing Organization Address [facility] Phone Number [facility] [address] [place] [address] * Ferritin (07/03/2024 3:00 AM EDT) Pathologist [facility] Ferritin 80 10 - 291 ng/mL [facility] 07/03/2024 3:00 AM EDT 07/04/2024 5:18 PM EDT us Ed Carver MD LAB BLOOD ORDERABLES Final Result Performing Organization Address [facility] Phone Number [facility] [address] [place] [address] * (ABNORMAL) Kt/V Natural Log, URR (07/03/2024 3:00 AM EDT) Treatment Time 188 min [facility] Pre-Weight, lb [...] PM EDT us Ed Carver MD LAB [id number] RESULTS Edited Result - Final Performing Organization Address City/[facility]/ZIP Co de Phone Number [facility] [address] [place] [address] * (ABNORMAL) CBC and Differential (07/03/2024 3:00 AM EDT) DIFFERENTIAL MANUAL, 2 Not Indicated [facility] White [...] 3:00 AM EDT 07/04/2024 5:16 PM EDT us Ed Carver MD LAB BLOOD ORDERABLES Final Result Performing Organization Address City/[facility]/ZIP Co de Phone Number [facility] [address] [place] [address] documented in this encounter Visit Diagnoses Not on filedocumented in this encounter Care Teams Maori Physiotherapist Relationship Specialty Start Date End Date Alyssa Manzano DO [address] [place] [address] PCP - General Family Medicine 03/02/21 documented as of this encounter
--- OUTSIDE RECORDS SUMMARY | 2024-07-05 14:55 | XMS_ITS | Encounter Summary ---
Author Organization [facility] Address [address] [place] [phone] Phone Care Team Providers Care Permastone Installer Name Role Phone Katlyn Manzanofer Primary Care Provider Unava ilable Encounter Details Date Type Department Care Team (Late st Contact Info) Description 07/01/2024 Treatment [facility] [address] [phone] Placido Carver MD [address] [phone] End stage renal disease; Dependence [...] care for end stage renal disease. Attending Sustainability Officer: PLACIDO CARVER MD Dialysis Location: [facility] Schedule: Shift: 2 OVERVIEW Patient is [...] dialysis documented in this encounter Care Teams Permastone Installer Relationship Specialty Start Date End Date Alyssa Manzano DO [address] [place] [id number] PCP - General Family Medicine 03/02/21 documented as of this encounter
[2024-07-05 15:15] VITALS: BP 140/89; PULSE 86; RESP 17; TEMP 36.3; O2SAT 99
--- NOTE | 2024-07-05 15:56 | MHC.CM.PN ---
Pt was changed to inpatient, no longer obs, IMM given 07/05.
[2024-07-05] MEDS: Metoclopramide HCl 10 MG/2 ML VIAL 5 MG IVPUSH (16:11)
[2024-07-05 18:58] VITALS: BP 171/78; PULSE 90; RESP 18; TEMP 37; O2SAT 100
--- NOTE | 2024-07-05 19:13 | PC.NURSE ---
Patient in dialysis until 914, upon return to the room patient requested pain medication, did not want to take any oral medication c/o nausea and vomiting. Patient also requested benadryl for itching. Patient has been resistive to care, refusing VS, POC and PO meds.
[2024-07-05] MEDS: ceFAZolin Sodium 3 GM in 0.9 % Sodium Chloride 100 ML IV (21:59)
[2024-07-05] MEDS: ondansetron HCL 4 MG/2 ML VIAL IVPUSH (22:08)
[2024-07-05 22:53] VITALS: BP 169/79; PULSE 91; RESP 18; TEMP 36.6; O2SAT 100
[2024-07-06 02:47] VITALS: BP 134/63; PULSE 90; RESP 18; TEMP 36.9; O2SAT 99
[2024-07-06] MEDS: HYDROmorphone HCl 0.5 MG/0.5 ML SYRINGE IVPUSH ×4 (04:50→23:28)
[2024-07-06] MEDS: diphenhydrAMINE HCL 50 MG/ML VIAL 25 MG IVPUSH ×4 (04:50→23:28)
[2024-07-06 07:01] VITALS: BP 119/68; PULSE 80; RESP 17; TEMP 36.3; O2SAT 99
[2024-07-06] MEDS: Metoclopramide HCl 10 MG/2 ML VIAL 5 MG IVPUSH ×3 (08:04→17:20)
[2024-07-06] MEDS: 0.9 % Sodium Chloride Flush 3 ML SYRINGE IVFLUSH (08:05)
--- NOTE | 2024-07-06 10:22 | PM.DS ---
DS: Providers Provider Date of Service: 07/07/24 Date of admission: 07/03/24 21:26 Date of discharge: 07/07/24 Primary care physician: Unknown Physician Consults: 07/03/24 22:51 Consult to Cardiology Routine Consulting Provider: [facility] Reason for consultation: syncope Has provider been notified: Yes Consult to Nephrology Routine Consulting Provider: [facility] Reason for consultation: ESRD on HD 07/04/24 05:15 Consult to Wound Care Routine Reason for consultation: wounds to feet DS: Diagnosis Discharge Diagnosis (1) Syncope and collapse: Status: Acute (2) ESRD on hemodialysis: Status: Acute DS: Summary Hospital Course Hospital Course: History and physical as per admitting provider. 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 Patient states she had 3 episode of brief loss of consciousness on the day of presentation. Patient was having dialysis during 1 of the episodes. The 2nd episode happened soon after she finished her dialysis session. The 3rd episode happened when she was in her wheelchair in the waiting room waiting for transportation when bystanders noticed that she had passed out again. Denies chest pain or palpitations preceding the episodes. No dizziness or lightheadedness preceding the episodes. States this has never happened before. Patient is complaining of nausea that started about a week ago with intermittent nonbloody emesis. Has associated diffuse generalized abdominal discomfort. No fever, chills, shortness of breath, changes in bowel habits. In the emergency department, EKG with QT prolongation. 33-year-old woman presented to the ER during episode of syncope. Seen and evaluated by Cardiology, less likely cardiac in nature. This type of situation for her occurs generally around hemodialysis likely secondary to fluid shifts. She has a history of uncontrolled hypertension and tends to be really high at some points and then really low at some points this is an ongoing issue for her. She also presented with nausea and vomiting which is likely secondary to her gastroparesis which is also ongoing issue for her for a long time. She was treated with Reglan, she was tolerated regular diet. End-stage renal disease on hemodialysis. Continue normal schedule of Sunday, and Sunday. Hypokalemia. Resolved Hypertension. Blood pressure under adequate control, continue home medications. Chronic hypoxic respiratory failure. Stable. Continue 3 L at baseline home O2. Mental health. Continue home medications Strep agalactiae bacteremia diagnosed last admission. Continue Ancef post dialysis for total of 6 weeks, end date 07/11/2024 Time Attestation Discharge Coordination Time (in mins): 40 Quality: Safe Use of Opioids Does Pt have an Active Cancer Diagnosis on the Problem List?: No Quality: Stroke Does the patient have a stroke diagnosis?: No Physical Exam Vital Signs: Vital Signs: Last Vital Signs Temp 97.3 F 07/06/24 07:01 Pulse 80 07/06/24 07:01 Resp 17 07/06/24 07:01 BP 119/68 07/06/24 07:01 Pulse Ox 99 07/06/24 07:01 O2 Del Method Nasal Cannula 07/06/24 07:01 O2 Flow Rate 2 07/06/24 07:01 BMI result Body Mass Index 29.3 Appearing in no acute distress, blind head is normocephalic atraumatic eyes pupils are PERRLA sclera is anicteric mouth throat mucous membranes are intact and moist neck is supple no lymphadenopathy, no JVD noted lung sounds are clear to auscultation heart regular rate rhythm, clear S1, S2 positive bowel sounds, abdomen is soft, nontender neuro patient is alert x3, no focal deficits Bilateral TMA DS: Data Data Completed and Pending Completed studies during hospitalization [Text1]: Procedures Detachment at Left 2nd Toe, Complete, Open Approach (09/08/23) Detachment at Left 3rd Toe, Complete, Open Approach (09/08/23) Detachment at Left 4th Toe, Complete, Open Approach (09/08/23) Detachment at Right Foot, Partial 1st Ray, Open Approach (03/01/20) Detachment at Right Foot, Partial 2nd Ray, Open Approach (03/01/20) Detachment at Right Foot, Partial 3rd Ray, Open Approach (03/01/20) Detachment at Right Foot, Partial 4th Ray, Open Approach (03/01/20) Detachment at Right Foot, Partial 5th Ray, Open Approach (03/01/20) Drainage of Right Pleural Cavity, Percutaneous Approach (01/14/21) Excision of Left Foot Muscle, Open Approach (01/14/24) Excision of Left Foot Skin, External Approach (10/08/23) Excision of Left Foot Subcutaneous Tissue and Fascia, Open Approach (10/08/23) Excision of Right Foot Skin, External Approach (08/27/23) Excision of Stomach, Pylorus, Via Natural or Artificial Opening Endoscopic, Diagnostic (08/27/22) Fluoroscopy of Superior Vena Cava, Guidance (08/14/22) Insertion of Endotracheal Airway into Trachea, Via Natural or Artificial Opening (11/10/23) Insertion of Infusion Device into Right Atrium, Percutaneous Approach (02/25/24) Insertion of Infusion Device into Superior Vena Cava, Percutaneous Approach (05/25/24) Insertion of Infusion Device into Upper Vein, Percutaneous Approach (01/14/24) Insertion of Tunneled Vascular Access Device into Chest Subcutaneous Tissue and Fascia, Percutaneous Approach (05/25/24) Introduction of Vasopressor into Peripheral Vein, Percutaneous Approach (11/10/23) Isolation (11/10/23) Performance of Urinary Filtration, Intermittent, Less than 6 Hours Per Day (05/25/24) Removal of Infusion Device from Great Vessel, External Approach (01/14/21) Removal of Infusion Device from Great Vessel, Percutaneous Approach (05/25/24) Removal of Infusion Device from Heart, External Approach (01/14/24) Removal of Tunneled Vascular Access Device from Trunk Subcutaneous Tissue and Fascia, Open Approach (05/25/24) Respiratory Ventilation, Greater than 96 Consecutive Hours (11/10/23) Transfusion of Nonautologous Red Blood Cells into Peripheral Vein, Percutaneous Approach (11/10/23) Ultrasonography of Superior Vena Cava, Guidance (02/25/24) Discharge Plan Discharge Anticipated Discharge Date/Time: 07/07/24 08:27 Patient Disposition: Home, Self-Care Discharge Diagnosis: Syncope Nausea and vomiting Discharge Medications: New ondansetron 4 mg tablet,disintegrating 4 mg PO Q8H PRN (Reason: nausea and vomiting) Qty: 12 0RF Continued carvedilol 12.5 mg Tablet 12.5 mg PO BID 90 Days Qty: 180 0RF Protocol: Hold for SBP/HR < HOLD for SBP < : 90 HOLD for HR < : 60 hydralazine 50 mg Tablet 50 mg PO TID 90 Days Qty: 270 0RF Protocol: Hold for SBP< HOLD for SBP < : 90 acetaminophen 325 mg tablet 650 mg PO Q4H PRN (Reason: mild pain) oxycodone 5 mg tablet 5 mg PO Q8H PRN (Reason: Pain) cefazolin 2 gram recon soln 2 g IV ./ and Sun Rx Instructions: 2 g cefazolin IV Sunday and Sunday post hemodialysis, end date July 11 lidocaine 5 % adhesive patch,medicated 1 patch topical DAILY PRN (Reason: Pain) nitroglycerin 0.4 mg tablet, sublingual 0.4 mg sublingual DIRECTED PRN (Reason: Angina) albuterol sulfate [Ventolin HFA] 90 mcg/actuation HFA aerosol inhaler 2 puff inhalation Q6H PRN (Reason: wheezing) calcium carbonate [Tums] 200 mg calcium (500 mg) Tablet,Chewable 200 mg PO TIDWM Discharge Orders: Discharge Order (Routine); Ordered 07/07/24 Ordered By: Tawny Taylor Diet: Advance to usual diet Activity on Discharge: As tolerated Stand Alone Forms: Patient Portal Discharge page Print Language: Congolese Care Plan Goals: Continue antibiotics as prescribed previously with end date of July 11 Continue baseline oxygen 3 L Health Concerns: Syncope Nausea and vomiting Plan of Treatment: Follow-up with primary care provider as needed Take all medications as prescribed Assessment: See discharge summary Discharge Date/Time: 07/07/24 13:52
--- NOTE | 2024-07-06 13:08 | P.PNIM_ITS ---
Subjective Subjective Date of Service: 07/06/24 Interval History: seen and examined this morning follow up for syncope reporting nausea and vomiting Review of Systems Review of Systems: Yes all other systems are reviewed and are negative Constitutional Constitutional: Denies chills and Denies fever(s) Physical Exam 2 Vital Signs: Vital Signs: Last Vital Signs Temp 97.3 F 07/06/24 07:01 Pulse 80 07/06/24 07:01 Resp 17 07/06/24 07:01 BP 119/68 07/06/24 07:01 Pulse Ox 99 07/06/24 07:01 O2 Del Method Nasal Cannula 07/06/24 07:01 O2 Flow Rate 2 07/06/24 07:01 BMI result Body Mass Index 29.3 Appearing in no acute distress lung sounds are clear to auscultation heart regular rate rhythm, clear S1, S2 positive bowel sounds, abdomen is soft, nontender neuro patient is alert x3, no focal deficits Objective Data Active Medications Acetaminophen (Acetaminophen 325 Mg Tablet) 650 mg PO Q6H PRN PRN Reason: Pain, Mild 1-3,fever,headache Albuterol Sulfate (Albuterol Sulfate 90 Mcg 8 Gm Inhaler) 2 puff INHALE Q6H PRN PRN Reason: wheezing Calcium Carbonate (Calcium Carbonate 750 Mg Tab.Chew) 750 mg PO Q4H PRN PRN Reason: Heartburn Carvedilol (Carvedilol 12.5 Mg Tablet) 12.5 mg PO BID [facility]; Protocol Last Admin: 07/06/24 08:06 Dose: Not Given Documented By: BEAU Non-Admin Reason: Patient Refused Dextrose (Dextrose 50 % 25 Gm/50 Ml Syringe) 25 gm IVPUSH Q15M PRN; Protocol PRN Reason: per Hypoglycemia Standing Ord. Diphenhydramine HCl (Diphenhydramine Hcl 50 Mg/Ml Vial) 25 mg IVPUSH Q6H PRN PRN Reason: itchiness Last Admin: 07/06/24 11:02 Dose: 25 mg Documented By: BEAU Glucose (Glucose Gel 15 Gm Gel..Gram.) 15 gm PO Q15M PRN; Protocol PRN Reason: per Hypoglycemia Standing Ord. Hydralazine HCl (Hydralazine Hcl 50 Mg Tablet) 50 mg PO TID [facility]; Protocol Last Admin: 07/06/24 08:06 Dose: Not Given Documented By: BEAU Non-Admin Reason: Patient Refused Hydromorphone HCl (Hydromorphone Hcl 0.5 Mg/0.5 Ml Syringe) 0.5 mg IVPUSH Q6H PRN; Protocol PRN Reason: Pain, Severe (Pain Scale 7-10) Last Admin: 07/06/24 11:05 Dose: 0.5 mg Documented By: BEAU Cefazolin Sodium/Dextrose (Ancef) 2 gm in 50 mls @ 100 mls/hr IV TuTh@1900 [facility] Cefazolin Sodium 3 gm/ Sodium (Chloride) 100 mls @ 200 mls/hr IV Sa@1900 [facility] Last Infusion: 07/05/24 22:30 Dose: Infused Documented By: KANDI Insulin Human Lispro (Insulin Lispro 100 Unit/Ml 3 Ml Vial) 0 unit SUBCUT QIDACHS [facility]; Protocol Last Admin: 07/06/24 11:55 Dose: Not Given Documented By: BEAU Non-Admin Reason: Patient refused POC Lidocaine (Lidocaine 4 % Patch Adh..Patch) 1 patch TRANSDERMA DAILY PRN PRN Reason: Pain Magnesium Hydroxide (Milk Of Magnesia 30 Ml Oral.Susp) 30 ml PO DAILY PRN PRN Reason: Constipation Melatonin (Melatonin 3 Mg Tablet) 6 mg PO BEDTIME PRN PRN Reason: Insomnia Metoclopramide HCl (Metoclopramide Hcl 10 Mg/2 Ml Vial) 5 mg IVPUSH TIDAC [facility] Last Admin: 07/06/24 12:24 Dose: 5 mg Documented By: BEAU Oxycodone HCl (Oxycodone Hcl Immed Release 5 Mg Tablet) 5 mg PO Q8H PRN PRN Reason: Pain, Moderate(Pain Scale 4-6) Last Admin: 07/04/24 11:53 Dose: 5 mg Documented By: NETO Pantoprazole Sodium (Pantoprazole Sodium 40 Mg/10 Ml Vial) 40 mg IVPUSH DAILY@0630 [facility] Last Admin: 07/06/24 05:35 Dose: Not Given Documented By: KANDI Non-Admin Reason: Patient Refused Sodium Chloride (0.9 % Sodium Chloride Flush 3 Ml Syringe) 3 ml IVFLUSH QSHIFT [facility] Last Admin: 07/06/24 08:05 Dose: 3 ml Documented By: BEAU Labs 07/03/24 16:25 07/03/24 16:25 Assessment and Plan (1) Syncope and collapse: Status: Acute (2) ESRD on hemodialysis: Status: Acute Plan 33-year-old female with pertinent history of ESRD on hemodialysis T/T/S, phy-lwryehp-dtmvafqsb 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, peripheral arterial disease status post bilateral TMA, poorly controlled hypertension due to medication noncompliance, chronic hypoxemic respiratory failure on 3-4 L baseline supplemental oxygen, congestive heart failure with reduced ejection fraction, mood disorder, chronic pain with opioid seeking behavior who presents to the emergency department for evaluation of syncope Syncope continue cardiac monitoring EKG with QT prolongation>chronic and not likely cause of syncope per cardiology Cardiology following>less likely cardiac in nature cardiac enzymes chronically elevated occurred around HD, fluid shift vs compliance with medication and low bp follow bp closely Nausea/vomiting Likely viral gastroenteritis vs gastroparesis Imaging without any acute abnormality ok for antiemetics per cardiology reglan pre-meal, change to po when tolerating ESRD on hemodialysis Nephrology following, continue HD ,, schedule hyperkalemia resolved Hypertension Blood pressure under adequate control carvedilol plus hydralazine Chronic hypoxemic respiratory failure On baseline oxygen Chronic Congestive heart failure with reduced EF Dialysis as above Bon-lkjktfk-aspgocgmp diabetes mellitus with diabetic polyneuropathy/retinopathy POCs, SSI Mood disorder Not on mood stabilizers Chronic pain with opioid seeking behavior Will avoid IV Dilaudid as much as possible. On p.o. oxycodone chronic wounds wound care Strep agalactiae bacteremia diagnosed last admission Continue Ancef post dialysis for total 6 weeks, end date July 11 DVT prophylaxis: Hold anticoagulation until platelets greater than 100 Full code Quality Stroke Does the patient have a stroke diagnosis?: No VTE Prior VTE?: No VTE Risk Level:: Medical - moderate - high VTE Device Contraindication: N/A - Device Ordered VTE Drug Contraindication: Treatment Not Indicated
--- NOTE | 2024-07-06 15:09 | MHC.CM.PN ---
Pt medically cleared for discharge home self-care, [facility] transport arranged, [facility] auth obtained (run #[id number]). This CM received a call from the pt stating she was in such severe back pain, asking if she could stay one more day. This CM notified hospitalist who agreed to have pt stay one more night. Discharge on hold at this time.
[2024-07-06 15:14] VITALS: BP 152/69; PULSE 86; RESP 18; TEMP 36.2; O2SAT 100
[2024-07-06 20:00] VITALS: BP 159/78; PULSE 85; RESP 18; TEMP 36.3; O2SAT 99
[2024-07-06 23:28] VITALS: BP 176/90; PULSE 92; RESP 18; TEMP 36.2; O2SAT 99
[2024-07-07 04:00] VITALS: BP 177/86; PULSE 88; RESP 18; TEMP 36.3; O2SAT 100
[2024-07-07] MEDS: diphenhydrAMINE HCL 50 MG/ML VIAL 25 MG IVPUSH ×2 (06:13→12:21)
[2024-07-07] MEDS: HYDROmorphone HCl 0.5 MG/0.5 ML SYRINGE IVPUSH ×2 (06:13→12:21)
[2024-07-07] MEDS: Pantoprazole Sodium 40 MG/10 ML VIAL IVPUSH (06:19)
[2024-07-07 07:43] VITALS: BP 150/94; PULSE 87; RESP 16; TEMP 36.2; O2SAT 96
[2024-07-07 07:46] LABS: Glucose, Whole Blood 125 mg/dL (60-115)
[2024-07-07] MEDS: carvediloL 12.5 MG TABLET PO (07:59)
[2024-07-07] MEDS: Metoclopramide HCl 10 MG/2 ML VIAL 5 MG IVPUSH ×2 (07:59→11:05)
[2024-07-07] MEDS: 0.9 % Sodium Chloride Flush 3 ML SYRINGE IVFLUSH (07:59)
[2024-07-07] MEDS: hydrALAZINE HCl 50 MG TABLET PO (07:59)
--- NOTE | 2024-07-07 08:14 | MHC.CM.PN ---
Addendum entered by Abbie Galeano 07/07/24 10:30: CM spoke with Sister/Caregiver/Mary @ [phone], who confirmed that she will be home at 1PM today to receive Patient. Patient will return home today at 1PM, via [facility] ([facility] transport auth # is [id number]). Original Note: Patient has been medically cleared for dc to home today, self care.
[2024-07-07 10:53] VITALS: BP 146/64; PULSE 77; RESP 16; TEMP 36.1; O2SAT 100
== END 2024-07-07 13:52 | disposition home or self-care (01) | DRG 312 ==
LOC: HO.ED 21:31 → HO.IMC 07-04 02:24 → HO.EDOVER 07-05 14:53
PROVIDERS: Admitting Provider Student in an Organized Health Care Education/Training Program; Emergency Provider Emergency Medicine; PCP Student in an Organized Health Care Education/Training Program; Visit Provider Nurse Practitioner Acute Care
DX: R55 Syncope and collapse (principal); N18.6 End stage renal disease; I12.0 Hypertensive chronic kidney disease with stage 5 chronic kidney disease or end stage renal disease; I50.22 Chronic systolic (congestive) heart failure; J96.11 Chronic respiratory failure with hypoxia; R78.81 Bacteremia; A08.4 Viral intestinal infection, unspecified; E11.43 Type 2 diabetes mellitus with diabetic autonomic (poly)neuropathy; K31.84 Gastroparesis; G89.29 Other chronic pain; R94.31 Abnormal electrocardiogram [ECG] [EKG]; H54.8 Legal blindness, as defined in USA; E87.5 Hyperkalemia; B95.1 Streptococcus, group B, as the cause of diseases classified elsewhere; E11.42 Type 2 diabetes mellitus with diabetic polyneuropathy; E11.22 Type 2 diabetes mellitus with diabetic chronic kidney disease; Z99.2 Dependence on renal dialysis; Z76.5 Malingerer [conscious simulation]; Z99.81 Dependence on supplemental oxygen; Z91.158 Patient's noncompliance with renal dialysis for other reason; Z79.899 Other long term (current) drug therapy
CPT/HCPCS: 36415; 74176; 80053; 82947; 83690; 84484; 85025; 90999; 93005; 99285; J0360; J0690; J1171; J1200; J1308; J2405; J2470; J2765; J3360; J3475

== ENCOUNTER → 2024-07-03 17:29 | Outpatient (BNV) | payer OTHER, SELFPAY | PROVIDERS: Emergency Provider Emergency Medicine; Visit Provider Nuclear Medicine | DX: R16.2 Hepatomegaly with splenomegaly, not elsewhere classified (principal) | CPT/HCPCS: 74176 ==

== ENCOUNTER 2024-07-03 21:26 | Outpatient (BNV) | payer OTHER, SELFPAY | END 2024-07-04 09:00 | PROVIDERS: Admitting Provider Student in an Organized Health Care Education/Training Program; Emergency Provider Emergency Medicine; Visit Provider Internal Medicine | DX: I45.10 Unspecified right bundle-branch block (principal) | CPT/HCPCS: 93010 ==

== ENCOUNTER → 2024-07-03 21:26 | Outpatient (BNV) | payer OTHER, SELFPAY | PROVIDERS: Admitting Provider Student in an Organized Health Care Education/Training Program; Emergency Provider Emergency Medicine; Visit Provider Internal Medicine | DX: N18.6 End stage renal disease (principal); Z99.2 Dependence on renal dialysis; R55 Syncope and collapse; R94.31 Abnormal electrocardiogram [ECG] [EKG] | CPT/HCPCS: 99223 ==

== ENCOUNTER → 2024-07-03 21:26 | Outpatient (BNV) | payer OTHER, SELFPAY | PROVIDERS: Admitting Provider Student in an Organized Health Care Education/Training Program; Emergency Provider Emergency Medicine; Visit Provider Student in an Organized Health Care Education/Training Program | DX: R55 Syncope and collapse (principal); N18.6 End stage renal disease; Z99.2 Dependence on renal dialysis | CPT/HCPCS: 99232 ==

== ENCOUNTER 2024-07-08 15:06 | Emergency (ER) | payer OTHER, SELFPAY ==
--- NOTE | ~2024-07-08 | CT_ITS ---
CLINICAL HISTORY: severe chest pain, radiating to back, severe HTN Limited examination. The chest beginning at T6 is included in the field of view. Prominent sized heart. Partially visualized catheter terminating in the right atrium. Partially visualized moderate calcified coronary artery disease. No pericardial effusion. The visualized portions of pulmonary artery are clear. Normal size aortic root and visualized ascending aorta. Normal size visualized distal descending thoracic aorta. The lung bases are clear. Wall thickening versus underdistention of the distal esophagus; esophagitis could be considered. This document has been electronically signed by: Analy Mcgraw MD on 07/08/2024 19:19:27
--- NOTE | ~2024-07-08 | CT_ITS ---
CLINICAL HISTORY: severe chest pain, radiating to back, severe HTN CT angio abdomen with bilateral lower extremity runoff and 3D post-processing Comparison: CT/SR - CT ABDOMEN PELVIS WO IV CON - 07/03/24 19:[address]/SR - CT ABDOMEN PELVIS W IV CON - 05/25/24 16:[address] - CT ABDOMEN PELVIS W IV CON - 05/25/24 16:31 EDT Findings: No aortic aneurysm or dissection. There is severe calcified atherosclerotic disease. No significant stenosis of the proximal celiac, superior and inferior mesenteric arteries. There is significant stenosis the proximal left renal artery. There is significant stenosis the lower pole distal right renal artery. Focal dilation of the vessel in the upper pole of the right kidney measuring 8 mm could be an aneurysm or pseudoaneurysm. There is diminished flow in distal vessels; even on the delayed images continuous flow is not definitively visualized within the distal anterior/posterior tibial, peroneal and dorsalis pedis arteries. The vessels in the right lower extremity are otherwise patent. There is multifocal significant stenosis of the right mid to distal femoral artery. There is significant stenosis of the distal popliteal artery. There is diminished flow in distal vessels; even on the delayed images continuous flow is not definitively visualized within mid to distal anterior/posterior tibial, peroneal and dorsalis pedis arteries. This is more pronounced than on the right. The vessels in the left lower extremity are otherwise patent. There is significant stenosis in the left deep femoral artery. There is multifocal significant stenosis of the left mid to distal femoral artery. No consolidation at the lung bases. Prominent sized heart. Partially visualized catheter in the right atrium. Moderate calcified coronary artery disease. The previously seen pericardial effusion is no longer visualized. Status post cholecystectomy. Unremarkable bladder. Atrophic kidneys. The other solid organs are unremarkable. No bowel wall thickening or dilation. The appendix is not visualized. No secondary signs of acute appendicitis. No lymphadenopathy. No ascites. No acute osseous abnormality. There is distal muscular atrophy, greater on the left. Left foot Charcot joint. Impression: No aneurysm or dissection. Severe calcified atherosclerotic disease. Renal artery stenosis with renal atrophy. Multifocal significant stenosis, detailed above, most prominent in the lower extremities distally. Diminished flow in distal vessels with continuous flow not definitively visualized within the bilateral anterior/posterior tibial, peroneal and dorsalis pedis arteries, more pronounced on the left. This document has been electronically signed by: Analy Mcgraw MD on 07/08/2024 19:07:26
--- NOTE | ~2024-07-08 | XR_ITS ---
EXAMINATION: XR CHEST 1 VIEW HISTORY: chest pain COMPARISON: Comparison is made with the prior examination dated 06/25/2024. FINDINGS: A single AP portable view of the chest performed at 3:37 PM is submitted. A right-sided dual-lumen catheter is again noted with its tip in the right atrium. The lungs are expanded and clear. There is no pleural effusion, pneumothorax, or pulmonary vascular congestion. The heart is normal in size. The bones are intact. XR/XR chest 1V IMPRESSION: No acute cardiopulmonary abnormality. Electronically signed by: Shay Arredondo MD 07/08/2024 03:50 PM EDT
--- NOTE | 2024-07-08 15:17 | ED_ITS ---
HPI - Chest Pain General Chief Complaint: Chest Pain Stated Complaint: CP TO L ARM,RBBB,BP 200/100 PER EMS Time Seen by Provider: 07/08/24 15:16 Source: patient, EMS, RN notes reviewed and old records reviewed Mode of arrival: EMS Limitations: no limitations History of Present Illness ED Provider: Eric Ramirez PA-C HPI narrative: 33-year-old female with history of ESRD on HD T//Sun, DM with polyneuropathy, retinopathy and blindness, PAD s/p bilateral TMA, HTN with history of HTN emergency due to medication noncompliance, chronic hypoxic respiratory failure, mood disorder, HFrEF, chronic pain on chronic opiates, recent admission to [facility] for recurrent syncope who is presenting to the ER from dialysis c/o severe central and left sided chest pain that woke her out of sleep at 6am. she reports the pain is severe, 10/10 and sharp in nature. She states it is in the middle of her chest and radiates to the left side of her chest, radiates to her back. She also reports she has severe pain in her bilateral legs, this is more chronic in nature. She states the pain is worse when she takes a deep breath. she woke up with the pain at 06:00, took a sublingual nitroglycerin with no improvement. She states she has not had to take her nitro in the last 3 months. She went to dialysis where she received another dose of nitroglycerin and a dose of clonidine because her blood pressure was 200/100. Her dialysis session was ended 2 minutes early for ongoing reports of chest pain and back pain. MD complaint: chest pain Pertinent past history: other ( dialysis patient, known severe atherosclerotic disease) Onset (ago): hour(s) (10) Timing of current episode: constant Onset: during rest Pain location: substernal and left chest Pain radiation: back and abdomen Severity: severe Pain scale (0-10): 10 Quality: sharp Relieving factors: nothing Exacerbating factors: inspiration and movement Context: non compliance with medication Associated symptoms: dyspnea Treatment prior to arrival: nitroglycerin and oxygen Risk Factors Coronary artery disease risk factors: diabetes, hyperlipidemia and hypertension Thoracic aortic dissection risk factors: longstanding hypertension Related Data Home Medications ?Medication ?Instructions ?Recorded ?Confirmed albuterol sulfate 90 mcg/actuation 2 puff inhalation Q6H PRN wheezing 01/15/24 07/03/24 aerosol inhaler (Ventolin HFA) lidocaine 5 % topical patch 1 patch topical DAILY PRN Pain 01/15/24 07/03/24 nitroglycerin 0.4 mg sublingual 0.4 mg sublingual DIRECTED PRN 01/15/24 07/03/24 tablet Angina acetaminophen 325 mg tablet 650 mg PO Q4H PRN mild pain 03/11/24 07/03/24 oxycodone 5 mg tablet 5 mg PO Q8H PRN Pain 05/25/24 07/03/24 calcium carbonate (Tums) 200 mg PO TIDWM 07/03/24 07/03/24 Previous Rx's ?Medication ?Instructions ?Recorded carvedilol 12.5 mg tablet 12.5 mg PO BID 90 days #180 tabs 12/16/23 hydralazine 50 mg tablet 50 mg PO TID 90 days #270 tabs 12/16/23 cefazolin 2 gram intravenous 2 g IV . and 06/03/24 solution ondansetron 4 mg disintegrating 4 mg PO Q8H PRN nausea and 07/06/24 tablet vomiting #12 tabs Allergies Allergy/AdvReac Type Severity Reaction Status Date / Time morphine [MORPHINE] Allergy Intermediate Itching Verified 07/08/24 15:34 azithromycin [From Zithromax] Allergy Hives Verified 07/08/24 15:34 gabapentin Allergy Facial Verified 07/08/24 15:34 Swelling tramadol Allergy Facial Verified 07/08/24 15:34 Swelling vancomycin Allergy Anaphylaxis Verified 07/08/24 15:34 Review of Systems 2 Review of Systems: Yes all other systems are reviewed and are negative [facility] Past Medical History Medical History (Updated 07/08/24 @ 17:33 by JOVON Frank) ESRD (end stage renal disease) Hypotonic neurogenic bladder Diabetic polyneuropathy ESRD (end stage renal disease) on dialysis Hypertensive emergency Non-compliance with renal dialysis Decompensated heart failure Congestive heart failure Renal failure Hypertension, uncontrolled Medical non-compliance Pericarditis Unspecified hypertension, condition or complication Metabolic acidosis Gastroparesis End stage chronic kidney disease Chronic kidney disease Anemia Chronic foot ulcer Plantar ulcer of left foot Major depressive disorder, single episode, severe Non-compliance with renal dialysis Hypertensive urgency MDD (major depressive disorder), recurrent episode MDD (major depressive disorder) Renal failure Foot ulcer CKD (chronic kidney disease) Hypertension Diabetic foot Hyperkalemia Vomiting Renal failure Hypertension Migraine Chronic pain ESRD on dialysis Non-compliance with renal dialysis Hypertension End-stage renal disease (ESRD) Diabetic foot ulcer associated with type 2 diabetes mellitus Diabetes ESRD needing dialysis Cardiomyopathy HFrEF (heart failure with reduced ejection fraction) delivery delivered Anemia in chronic kidney disease (CKD) CKD (chronic kidney disease) Headache, migraine Abnormal finding on echocardiogram Elevated troponin Chest pain Acute worsening of stage 3 chronic kidney disease Generalized edema Sepsis Cellulitis Pleural effusion CHF (congestive heart failure) (~06/07/22) Tachycardia Atypical chest pain Bone infection PAD (peripheral artery disease) Severe anemia Cellulitis and abscess of foot DM foot ulcer Osteomyelitis Asthma Depression with anxiety Diabetic retinopathy Type 2 diabetes mellitus with hyperglycemia, with long-term current use of insulin Blind right eye Diabetes Back pain Surgical History Tubal ligation status Previous section Hx laparoscopic cholecystectomy Hx of surgical procedure (~09/11/23) 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 Family History Family History Mother Coronary artery disease Myocardial infarction Stroke Diabetes mellitus Father Myocardial infarction Social History Social History Household Members: Family Household Members Other:: sister Housing: Apartment Are you a primary primary care coordinator to a significant other at home: No Do you presently have visiting nurse or other home services: No Unable to assess alcohol history related to: Unknown Alcohol intake: never Comment: Patient refusing assistance OOB and alarms as well as camera despite educat Patient Tobacco Use Status: Never used Tobacco Smoked in Last 30 Days: No e-Cigarette/Vaping Use: Never Used Second Hand Smoke Exposure: No Use of substances other than those prescribed or required for medical reasons: No Advance Directives: Yes Advance Directives on File: Yes Advance Directives Date on File: 09/04/23 Do you have a plan to hurt others: No Plan Patient : No service: No Current occupational status: unemployed and disabled Gender identity: Female Physical Exam 2 Vital Signs: Vital Signs: Last Vital Signs Temp 98.2 F 07/08/24 15:36 Pulse 89 07/08/24 19:22 Resp 10 L 07/08/24 19:22 BP 164/57 H 07/08/24 19:22 Pulse Ox 100 07/08/24 19:22 O2 Del Method Room Air 07/08/24 19:22 Oxygen Flow Rate 2 07/08/24 15:32 BMI result Body Mass Index 27.8 Appearance: Alert. Oriented X3. Mild distress, restless, in pain Head: normocephalic, atraumatic. Eyes: Hazy right cornea, scleral injection bilaterally, blind ENT: Pharynx normal. No tonsillar swelling or exudate. Neck: Normal inspection. Neck supple. CVS: Normal heart rate and rhythm. Pulses normal. No murmur Respiratory: No respiratory distress. Breath sounds diminished at the bases Abdomen: Soft with central abdominal tenderness and guarding in the periumbilical region. +BS x4 Skin: Skin warm and dry. Normal skin color. Normal skin turgor. multiple areas of scabbing wounds in various stages of healing Extremities: No lower extremity edema. No joint swelling. 1+ bilateral femoral pulses. bilateral lower extremity tenderness, LLE in dry dressings. Neuro/psych: Oriented X 3. moving all extremities CN II-XII intact. Normal speech and cognition. Course Reevaluation(s) Reevaluation #1: I Indu Carrero PA-C have accepted care of the patient at signed out pending dissection rule out CT angio chest abdomen and pelvis:Impression: No aneurysm or dissection. Severe calcified atherosclerotic disease. Renal artery stenosis with renal atrophy. Multifocal significant stenosis, detailed above, most prominent in the lower extremities distally. Diminished flow in distal vessels with continuous flow not definitively visualized within the bilateral anterior/posterior tibial, peroneal and dorsalis pedis arteries, more pronounced on the left. Limited examination. The chest beginning at T6 is included in the field of view. Prominent sized heart. Partially visualized catheter terminating in the right atrium. Partially visualized moderate calcified coronary artery disease. No pericardial effusion. The visualized portions of pulmonary artery are clear. Normal size aortic root and visualized ascending aorta. Normal size visualized distal descending thoracic aorta. The lung bases are clear. Wall thickening versus underdistention of the distal esophagus; esophagitis could be considered. Patient cardiac enzymes x2 are at her baseline, she is here chronically for chronic chest pain, discharging Medications Administered Discontinued Medications Generic Name Dose Route Start Last Admin Trade Name Freq PRN Reason Stop Dose Admin Hydromorphone HCl 2 mg 07/08/24 16:30 07/08/24 16:46 Hydromorphone Hcl 2 Mg/Ml Vial IVPUSH 07/08/24 16:31 2 mg ONCE ONE Administration Protocol Iohexol 100 ml 07/08/24 17:45 07/08/24 17:45 Iohexol 350 Mg/Ml 100 Ml Infus..Btl IV 07/08/24 17:46 100 ml ONCE ONE Administration Medical Decision Making Medical Decision Making [facility] Narrative: 33-year-old female with history of ESRD on HD T//Sun, DM with polyneuropathy, retinopathy and blindness, PAD s/p bilateral TMA, HTN with history of HTN emergency due to medication noncompliance, chronic hypoxic respiratory failure, mood disorder, HFrEF, chronic pain on chronic opiates, recent admission to [facility] for recurrent syncope who is presenting to the ER from dialysis c/o severe central and left sided chest pain that woke her out of sleep at 6am, radiating to her back, abdomen and legs. this is associated with severely elevated blood pressure of 200/100 while at HD. She has gotten 2 doses of nitro and has a subsequent headache, likely adverse side effects from the nitroglycerin. Blood pressure here slightly better with systolic blood pressure of 180. She states she took all of her BP meds this morning before dialysis. She suffers from chronic pain and is tender to palpation on most parts of her body so it is difficult to assess acute pathology. She does have equal and symmetrical, femoral pulses. Her legs are warm and well perfused. Will need to rule out aortic dissection given her presentation. Her CT scan of her abdomen was reviewed from last week she has severe atherosclerotic disease. Differential Diagnosis Differential Diagnoses: The differential diagnosis associated with the presentation includes aortic dissection, hypertensive emergency, pulmonary embolism, ACS Admission/Observation Consideration of admission/observation: Escalation of care including admission/observation considered Lab Data [facility] Lab Attestation statement: I reviewed the patient's lab results. mild, stable normocytic anemia, thrombocytopenia is stable from last week as well troponin is 71 which is down from last week. BUN and creatinine are stable with normal potassium 07/08/24 16:04 07/08/24 16:04 Labs: Lab Results 05/13/25 05/13/25 05/13/25 Range/Units 16:04 16:19 19:22 WBC 5.8 (4.8-10.8) X10*3/uL RBC 3.92 L (4.20-5.50) X10*6/uL Hgb 11.4 L (12.0-16.0) g/dl Hct 33.5 L (37.0-47.0) % MCV 85.5 (80.0-98.0) fL MCH 29.1 (27.0-33.0) pg MCHC 34.0 (31.0-35.0) g/dl RDW 15.7 (11.0-16.0) % Plt Count 94 L (160-400) X10*3/uL MPV 10.8 (9.4-12.3) fL Immature Gran % (Auto) 0.2 (0.0-0.4) % Neut % (Auto) 80.4 H (45-73) % Lymph % (Auto) 7.4 L (20-40) % Crisp % (Auto) 8.8 (2-11) % Eos % (Auto) 2.9 (0-4) % Baso % (Auto) 0.3 (0-2) % Lymph # (Auto) 0.4 L (1.2-4.9) X10*3/uL Crisp # (Auto) 0.5 (0.1-1.2) X10*3/uL Eos # (Auto) 0.2 (0.0-0.4) X10*3/uL Baso # (Auto) 0.0 (0.0-0.2) X10*3/uL Abs Immat Gran (auto) 0.01 (0.00-0.03) X10*3/uL Absolute Neuts (auto) 4.7 (2.0-8.3) x10*3/uL Absolute Nucleated RBC 0.000 (0.0-0.012) X10*3/uL Nucleated RBC % (auto) 0.0 (0.0-0.2) /100WBC Sodium 137 (135-145) mmol/L Potassium 4.0 (3.3-5.1) mmol/L Chloride 97 (96-108) mmol/L Carbon Dioxide 27 (22-29) mmol/L Anion Gap 17 (12-20) BUN 31 H (9-16) mg/dL Creatinine 5.47 H* (0.5-1.4) mg/dL Estim Creat Clear Calc 15.1 Estimated GFR 9 Random Glucose 124 H (60-115) mg/dL Calcium 9.7 (8.4-10.2) mg/dL Magnesium 2.3 (1.6-2.6) mg/dL Total Bilirubin 0.8 (0.0-1.0) mg/dL Direct Bilirubin 0.3 (0.0-0.5) mg/dL AST 53 H (5-31) U/L ALT < 6 (0-31) U/L Alkaline Phosphatase 195 H (39-117) U/L Troponin I High Sens 71.1 H* 74.8 H* (<3.5-17.0) ng/L Total Protein 8.6 H (6.5-8.0) g/dL Albumin 4.0 (3.5-5.0) g/dL Influenza Type A (PCR) NEGATIVE (Negative) Influenza Type B (PCR) NEGATIVE (Negative) RSV RNA Qual (PCR) NEGATIVE (Negative) SARS-CoV-2 RNA (RT-PCR) NEGATIVE (Negative) Independent Interpretation I performed an independent interpretation of an: EKG Interpretation: EKG with normal sinus rhythm, right bundle branch block which is old, prolonged QRS, diffuse T-wave inversions in V1 through V6 with 1mm ST depressions in V2- V6, largely unchanged from last week Discharge Plan Discharge Clinical Impression: Chest pain Patient Disposition: Home, Self-Care Instructions: Chest Pain (ED) Additional Instructions: All of your screening labs including 2 cardiac enzymes were normal for you. The angiograms of your chest and abdomen revealed no acute process. Continue to follow up with your healthcare providers Prescriptions: No Action carvedilol 12.5 mg Tablet 12.5 mg PO BID 90 Days Qty: 180 0RF Protocol: Hold for SBP/HR < HOLD for SBP < : 90 HOLD for HR < : 60 hydralazine 50 mg Tablet 50 mg PO TID 90 Days Qty: 270 0RF Protocol: Hold for SBP< HOLD for SBP < : 90 acetaminophen 325 mg tablet 650 mg PO Q4H PRN (Reason: mild pain) oxycodone 5 mg tablet 5 mg PO Q8H PRN (Reason: Pain) cefazolin 2 gram recon soln 2 g IV . and Sun Rx Instructions: 2 g cefazolin IV Sunday and Sunday post hemodialysis, end date July 11 lidocaine 5 % adhesive patch,medicated 1 patch topical DAILY PRN (Reason: Pain) nitroglycerin 0.4 mg tablet, sublingual 0.4 mg sublingual DIRECTED PRN (Reason: Angina) albuterol sulfate [Ventolin HFA] 90 mcg/actuation HFA aerosol inhaler 2 puff inhalation Q6H PRN (Reason: wheezing) calcium carbonate [Tums] 200 mg calcium (500 mg) Tablet,Chewable 200 mg PO TIDWM ondansetron 4 mg tablet,disintegrating 4 mg PO Q8H PRN (Reason: nausea and vomiting) Qty: 12 0RF Print Language: Anguillan
[2024-07-08 15:32] VITALS: BP 180/86; BP 197/90; PULSE 88; PULSE 96; RESP 18; TEMP 36.8; O2SAT 95; O2SAT 98; BMI 27.8
[2024-07-08 15:36] VITALS: BP 180/86; PULSE 88; RESP 18; TEMP 36.8; O2SAT 95
--- NOTE | 2024-07-08 15:36 | ECG_ITS ---
Test Reason : chest pain Blood Pressure : */* mmHG Vent. Rate : 94 BPM Atrial Rate : 94 BPM P-R Int : 174 ms QRS Dur : 152 ms QT Int : 434 ms P-R-T Axes : 51 -19 112 degrees QTcB Int : 542 ms Normal sinus rhythm Possible Left atrial enlargement Right bundle branch block T wave abnormality, consider lateral ischemia Abnormal ECG When compared with ECG of 04-Jul-2024 08:56, No significant change was found Referred By: Kasia Ramirez Electronically Signed By: HATTIE BAÑUELOS MD
[2024-07-08 16:08] LABS: MANUAL DIFF FLAG NO
[2024-07-08 16:14] LABS: Basophils Percent Auto 0.3 % (0-2); Eosinophils Absolute Auto 0.2 X10*3/uL (0.0-0.4); Eosinophils Percent Auto 2.9 % (0-4); Hematocrit 33.5 % (37.0-47.0); Hemoglobin 11.4 g/dl (12.0-16.0); Imm Gran Abs Auto 0.01 X10*3/uL (0.00-0.03); Imm Gran Pct Auto 0.2 % (0.0-0.4); Lymphocytes Absolute Auto 0.4 X10*3/uL (1.2-4.9); Lymphocytes Percent Auto 7.4 % (20-40); Mean Corpuscular Hemoglobin 29.1 pg (27.0-33.0); Mean Corpuscular Volume 85.5 fL (80.0-98.0); Mean Platelet Volume 10.8 fL (9.4-12.3); Monocytes Absolute Auto 0.5 X10*3/uL (0.1-1.2); Monocytes Percent Auto 8.8 % (2-11); Neutrophils Absolute Auto 4.7 x10*3/uL (2.0-8.3); Neutrophils Percent Auto 80.4 % (45-73); Red Blood Count 3.92 X10*6/uL (4.20-5.50); Red Cell Distribution Width 15.7 % (11.0-16.0); White Blood Count 5.8 X10*3/uL (4.8-10.8)
[2024-07-08 16:24] LABS: Platelet Count 94 X10*3/uL (160-400)
--- OUTSIDE RECORDS SUMMARY | 2024-07-08 16:32 | XMS_ITS | Encounter Summary ---
Author Organization [facility] Address [address] [place] [address] Care Team Providers Care Material Handler 1St Shift Name Role Phone Ed Nash MD Primary Care Provider Un available Community, Pcp Primary Care Provider Unavailabl e [facility], Pcp Primary Care Provider Unavailabl e Chanda Nugent Primary Care Provider Unavailabl e Encounter Details Date Type Department Care Team Description 02/16/2016 Release of Information Medical Records [address] [place] [id number] Abstract, Provider Social History Tobacco Use Types [...] on filedocumented in this encounter Care Teams Material Handler 1St Shift Relationship Specialty Start Date End Date Ed Nash MD PCP - General Internal Medicine 11/11/15 Community, Pcp PCP - General Internal Medicine 07/27/16 08/21/17 Community, Pcp PCP - General Internal Medicine 08/22/17 01/09/18 Chanda Nugent PCP - General Internal Medicine 01/10/18 documented as of this encounter
--- OUTSIDE RECORDS SUMMARY | 2024-07-08 16:32 | XMS_ITS | Encounter Summary ---
Author Organization [facility] Address [address] [place] [address] Care Team Providers Care Manager Packaging Name Role Phone Community, Pcp Primary Care Provider Chanda Thapa Primary Care Provider Mindy mercado Encounter Details Date Type Department Care Team Description 11/28/2017 Hospital Medical Records [address] [place] [id number] Hayden Troncoso MD Social History Tobacco Use [...] filedocumented in this encounter Care Teams Manager Packaging Relationship Specialty Start Date End Date Community, Pcp PCP - General Internal Medicine 08/22/17 01/09/18 Chanda Nugent PCP - General Internal Medicine 01/10/18 documented as of this encounter
--- OUTSIDE RECORDS SUMMARY | 2024-07-08 16:32 | XMS_ITS | Clinical Summary ---
[facility] Organization [facility] Address [address] [place] [address] Care Team Providers Care Maintenance Groundman Name Role Phone Betty Nugent MD Primary Care Provider [phone] Surgical History Surgery Date Site/Laterality Comments SECTION [...] age to complete this topic Care Teams Maintenance Groundman Relationship Specialty Start Date End Date Betty Nugent MD [address] [place] PCP - General Internal Medicine 01/10/18
--- OUTSIDE RECORDS SUMMARY | 2024-07-08 16:32 | XMS_ITS | Encounter Summary ---
Author Organization [facility] Address [address] [place] [address] Care Team Providers Care Dip Filler Name Role Phone Community, Pcp Primary Care Provider Chanda Thapa Primary Care Provider Mindy mercado Encounter Details Date Type Department Care Team Description 11/02/2017 Hospital Medical Records [address] [place] [address] Hayden Troncoso MD Social History Tobacco Use [...] on filedocumented in this encounter Care Teams Dip Filler Relationship Specialty Start Date End Date Community, Pcp PCP - General Internal Medicine 08/22/17 01/09/18 Chanda Nugent PCP - General Internal Medicine 01/10/18 documented as of this encounter
--- OUTSIDE RECORDS SUMMARY | 2024-07-08 16:32 | XMS_ITS | Encounter Summary ---
Author Organization [facility] Address [address] [place] [address] Care Team Providers Care Vision Rehabilitation Therapist Name Role Phone Chanda Nugent Primary Care Provider Unavailabl e Encounter Details Date Type Department Care Team Description 02/25/2018 [facility] Medical Records [address] [place] [address] Hayden Troncoso MD Social History Tobacco Use [...] on filedocumented in this encounter Care Teams Vision Rehabilitation Therapist Relationship Specialty Start Date End Date Chanda Nugent PCP - General Internal Medicine 01/10/18 documented as of this encounter
--- OUTSIDE RECORDS SUMMARY | 2024-07-08 16:32 | XMS_ITS | Clinical Summary ---
Author Organization [facility] Address [address] [place] [address] Care Team Providers Care Professor Of Literature Name Role Phone Unavailable Primary Care Provider [...] 0.79 S/CO ratio 01/10/2022 10:39 AM EST Ocision Hepatitis C Antibody Interpretation Nonreactive Nonreactive 01/10/2022 10:39 AM EST Ocision Blood specimen (specimen) (Plasma/Serum) 01/09/2022 8:34 AM EST 01/09/2022 9:21 AM EST us Jaziel B Post MD LAB BLOOD ORDERABLES Final Resu lt HOSPITAL [facility] [address] [facility] [place] [id number] * HIV 1/2 Ag/Ab CMIA Reflex to Confirmation (01/09/2022 8:34 AM EST) HIV 1/2 Ag/Ab CMIA Nonreactive Nonreactive 01/10/2022 10:39 AM EST [facility] Comment: Results show no evidence of infection [...] Post LAB BLOOD ORDERABLES Final Resu lt [facility] [employer] [facility] [address] [place] [address] from Last 3 Months or Most Recently Relevant to Health Maintenance Insurance [facility] M[facility] MGD MEDICARE OUT OF NETWORK Advance Directives * Full Code (Latest Code Status on File) Date Activated Date Inactivated Comments 01/06/2022 5:00 AM Question Answer Comments Decision Thoroughly Discussed with: Unable to Di scuss
--- OUTSIDE RECORDS SUMMARY | 2024-07-08 16:32 | XMS_ITS | Encounter Summary ---
Author Organization [facility] Address [address] [place] [address] Care Team Providers Care Screw Machine Hand Name Role Phone Chanda Nugent Primary Care Provider Unavailabl e Reason for Visit * Reason Onset Date Comments Homecare 04/26/2018 Encounter Details Date Type Department Care Team Description 04/26/2018 Telephone Vascular Surgery - [place] [address] [place] [address] Hayden Troncoso MD Homecare Social [...] - 04/26/2018 2:53 PM EST Marlyn, Clinical Optical Goods Drilling Machine Operator called to inform that patient couldn't be seen, but will be seen tomorrow. documented in this encounter Plan of Treatment Not on file documented as of this encounter Visit Diagnoses Not on filedocumented in this encounter Care Teams Screw Machine Hand Relationship Specialty Start Date End Date Chanda Nugent PCP - General Internal Medicine 01/10/18 documented as of this encounter
--- OUTSIDE RECORDS SUMMARY | 2024-07-08 16:32 | XMS_ITS | Encounter Summary ---
Author Organization [facility] Address [address] [place] [address] Care Team Providers Care Pediatric Urologist Name Role Phone Ed Nash MD Primary Care Provider Un available Community, Pcp Primary Care Provider Unavailabl e Community, Pcp Primary Care Provider Unavailabl e Chanda Nugent Primary Care Provider Unavailabl e Encounter Details Date Type Department Care Team Description 07/05/2016 Hospital Medical Records [address] [place] [address] [place] [address] [place] [address] Social History Tobacco Use Types Packs/Day Years [...] on filedocumented in this encounter Care Teams Pediatric Urologist Relationship Specialty Start Date End Date Ed Nash MD PCP - General Internal Medicine 11/11/15 Community, Pcp PCP - General Internal Medicine 07/27/16 08/21/17 Community, Pcp PCP - General Internal Medicine 08/22/17 01/09/18 Chanda Nugent PCP - General Internal Medicine 01/10/18 documented as of this encounter
--- OUTSIDE RECORDS SUMMARY | 2024-07-08 16:32 | XMS_ITS | Encounter Summary ---
Author Organization [facility] Address [address] [place] [address] Care Team Providers Care Centerpuncher Name Role Phone Community, Pcp Primary Care Provider Chanda Thapa Primary Care Provider Mindy mercado Encounter Details Date Type Department Care Team Description 12/01/2017 Hospital Medical Records [address] [place] [id number] Stella Douglas Social History Tobacco Use Types Packs/Day Years [...] on filedocumented in this encounter Care Teams Centerpuncher Relationship Specialty Start Date End Date Community, Pcp PCP - General Internal Medicine 08/22/17 01/09/18 Chanda Nugent PCP - General Internal Medicine 01/10/18 documented as of this encounter
--- OUTSIDE RECORDS SUMMARY | 2024-07-08 16:32 | XMS_ITS | Encounter Summary ---
Author Organization [facility] Address [address] [place] [address] Care Team Providers Care Administrative Staff Supervisor Name Role Phone Ed Nash MD Primary Care Provider Un available Community, Pcp Primary Care Provider Unavailabl e Community, Pcp Primary Care Provider Unavailabl e NugentChanda Primary Care Provider Unavailabl e Encounter Details Date Type Department Care Team Description 03/22/2016 Orders Only Medical Records [address] [place] [address] Ksenia Villavicencio MD [address] [place] [address] Social History Tobacco Use Types Packs/Day Years Used Date Smoking Tobacco: Former Alcohol Use Standard Drinks/Week Comments No 0 (1 standard drink = 0.6 oz pur e alcohol) Sex Assigned at Date Recorded Not on file documented as of this encounter Plan of Treatment Not on file documented as of this encounter Procedures Procedure Name Priority Date/Time Associated Diagnosis Comments OUTSIDE PATHOLOGY Routine 03/16/2016 documented in this encounter Results * OUTSIDE PATHOLOGY (03/16/2016) Ksenia Villavicencio MD OUTSIDE LAB documented in this encounter Visit Diagnoses Not on filedocumented in this encounter Care Teams Administrative Staff Supervisor Relationship Specialty Start Date End Date Ed Nash MD PCP - General Internal Medicine 11/11/15 Community, Pcp PCP - General Internal Medicine 07/27/16 08/21/17 Community, Pcp PCP - General Internal Medicine 08/22/17 01/09/18 Chanda Nugent PCP - General Internal Medicine 01/10/18 documented as of this encounter
--- OUTSIDE RECORDS SUMMARY | 2024-07-08 16:32 | XMS_ITS | Encounter Summary ---
Author Organization [facility] Address [address] [place] [address] Care Team Providers Care Dean Of Education Name Role Phone Chanda Nugent Primary Care Provider Unavailabl e Encounter Details Date Type Department Care Team Description 04/04/2018 [facility] Medical Records [address] [place] [address] Hayden Troncoso MD Social History Tobacco Use [...] on filedocumented in this encounter Care Teams Dean Of Education Relationship Specialty Start Date End Date Chanda Nugent PCP - General Internal Medicine 01/10/18 documented as of this encounter
--- OUTSIDE RECORDS SUMMARY | 2024-07-08 16:32 | XMS_ITS | Encounter Summary ---
Author Organization [facility] Address [address] [place] [address] Care Team Providers Care Pet Resort Concierge Name Role Phone Chanda Nugent Primary Care Provider Unavailabl e Encounter Details Date Type Department Care Team Description 07/19/2018 [facility] Medical Records [address] [place] [phone] Abstract, Provider Social History Tobacco Use Types [...] on filedocumented in this encounter Care Teams Pet Resort Concierge Relationship Specialty Start Date End Date Chanda Nugent PCP - General Internal Medicine 01/10/18 documented as of this encounter
--- OUTSIDE RECORDS SUMMARY | 2024-07-08 16:32 | XMS_ITS | Encounter Summary ---
Author Organization [facility] Address [address] [place] [address] Care Team Providers Care Administrative Receptionist Name Role Phone Ed Nash MD Primary Care Provider Un available Community, Pcp Primary Care Provider Unavailabl e Community, Pcp Primary Care Provider Unavailabl e Chanda Nugent Primary Care Provider Unavailabl e Encounter Details Date Type Department Care Team Description 03/16/2016 Hospital Medical Records [address] [place] [address] Ksenia Villavicencio MD [address] [place] [address] Social History Tobacco Use Types Packs/Day Years [...] filedocumented in this encounter Care Teams Administrative Receptionist Relationship Specialty Start Date End Date Ed Nash MD PCP - General Internal Medicine 11/11/15 Community, Pcp PCP - General Internal Medicine 07/27/16 08/21/17 Community, Pcp PCP - General Internal Medicine 08/22/17 01/09/18 Chanda Nugent PCP - General Internal Medicine 01/10/18 documented as of this encounter
--- OUTSIDE RECORDS SUMMARY | 2024-07-08 16:32 | XMS_ITS | Encounter Summary ---
Author Organization [facility] Address [address] [address] Phone Care Team Providers Care Telephone Operator Chief Name Role Phone Jose JuanAlyssa Primary Care Provider Unava ilable Encounter Details Date Type Department Care Team (Late st Contact Info) Description 07/03/2024 Orders Only [facility] [address] [address] Ed Carver MD [address] [address] Social History Tobacco Use Types [...] BLOOD ORDERABLES Final Result Performing Organization Address City/[facility] de Phone Number [facility] [address] [place] [address] * Protein, total (07/03/2024 3:00 AM EDT) Total Protein 8.1 6.4 - 8.9 g/dL [facility] 07/03/2024 3:00 AM EDT 07/04/2024 5:18 PM EDT us Ed Carver MD LAB BLOOD ORDERABLES Final Result Performing Organization Address [facility] de Phone Number [facility] [address] [place] [address] * Magnesium (07/03/2024 3:00 AM EDT) Pathologist [facility] Magnesium 2.5 1.9 - 2.7 mg/dL [facility] 07/03/2024 3:00 AM EDT 07/04/2024 5:18 PM EDT us Ed Carver MD LAB BLOOD ORDERABLES Final Result Performing Organization Address [facility] de Phone Number [facility] [address] [place] [address] * LIH (07/03/2024 3:00 AM EDT) Pathologist [facility] Lipemia Normal Normal [facility] Icterus Normal Normal [facility] Hemolysis Normal Normal [facility] 07/03/2024 3:00 AM EDT 07/04/2024 5:18 PM EDT Ed Carver MD LAB HISTORICA [id number] RESULTS Final Result Performing Organization Address [facility] de Phone Number [facility] [address] [place] [address] * (ABNORMAL) Electrolyte panel (07/03/2024 3:00 AM [...] BLOOD ORDERABLES Final Result Performing Organization Address [facility] de Phone Number [facility] [address] [place] [address] * (ABNORMAL) Lactate dehydrogenase (07/03/2024 3:00 AM EDT) LDH 284(H) 120 - 246 U/L [facility] 07/03/2024 3:00 AM EDT 07/04/2024 5:18 PM EDT Ed Carver MD LAB BLOOD ORDERABLES Final Result Performing Organization Address [facility] de Phone Number [facility] [address] [place] [address] * (ABNORMAL) Creatinine, serum (07/03/2024 3:00 AM EDT) Creatinine 9.98(H) 0.55 - 1.02 mg/dL [facility] 07/03/2024 3:00 AM EDT 07/04/2024 5:18 PM EDT Ed Carver MD LAB BLOOD ORDERABLES Final Result Performing Organization Address [facility] de Phone Number [facility] [address] [place] [address] * (ABNORMAL) Glucose, random (07/03/2024 3:00 AM EDT) Glucose 138(H) 70 - 99 mg/dL [facility] Comment: ADA guidelines outline the following fasting glucose ranges: Normal: ? <100 Prediabetes: 100-125 Diabetes: ? >125 07/03/2024 3:00 AM EDT 07/04/2024 5:18 PM EDT us Ed Carver MD LAB BLOOD ORDERABLES Final Result Performing Organization Address [facility] de Phone Number [facility] [address] [place] [address] * Bilirubin, total (07/03/2024 3:00 AM EDT) Total Bilirubin 0.3 0.3 - 1.2 mg/dL [facility] 07/03/2024 3:00 AM EDT 07/04/2024 5:18 PM EDT us Ed Carver MD LAB BLOOD ORDERABLES Final Result Performing Organization Address [facility] de Phone Number [facility] [address] [place] [address] * BUN/CREATININE RATIO (07/03/2024 3:00 AM EDT) BUN/Creatinine Ratio 7.3 <=23.0 [facility] 07/03/2024 3:00 AM EDT 07/04/2024 5:18 PM EDT us Ed Carver MD LAB HISTORICA [id number] RESULTS Final Result Performing Organization Address [facility] de Phone Number [facility] [address] [place] [address] * (ABNORMAL) ALT (07/03/2024 3:00 AM EDT) ALT (SGPT) <7(L) 10 - 49 U/L [facility] 07/03/2024 3:00 AM EDT 07/04/2024 5:18 PM EDT us Ed Carver MD LAB BLOOD ORDERABLES Final Result [facility] [address] [place] [address] * AST (07/03/2024 3:00 AM EDT) AST (SGOT) 25 <34 U/L [facility] 07/03/2024 3:00 AM EDT 07/04/2024 5:18 PM EDT Ed Carver MD LAB BLOOD ORDERABLES Final Result Performing Organization Address [facility] de Phone Number [facility] [address] [place] [address] * (ABNORMAL) Calcium Phosphorus Product, Adjusted (07/03/2024 [...] PM EDT Ed Carver MD LAB HISTORICA [id number] RESULTS Final Result Performing Organization Address City/[facility] [address]/[facility] Co de Phone Number [facility] [address] [place] [address] * (ABNORMAL) Alkaline phosphatase (07/03/2024 3:00 AM EDT) Alkaline Phosphatase 169(H) 46 - 116 U/L [facility] 07/03/2024 3:00 AM EDT 07/04/2024 5:18 PM EDT us Ed Carver MD LAB BLOOD ORDERABLES Final Result Performing Organization Address [facility] de Phone Number [facility] [address] [place] [address] * Hepatitis B Surface Ag w/Reflex Confirmation (07/03/2024 3:00 AM EDT) Hep B Surface Antigen Negative Negative [facility] 07/03/2024 3:00 AM EDT 07/04/2024 5:18 PM EDT us Ed Carver MD LAB BLOOD ORDERABLES Final Result Performing Organization Address [facility] Phone Number [facility] [address] [place] [address] * Ferritin (07/03/2024 3:00 AM EDT) Pathologist [facility] Ferritin 80 10 - 291 ng/mL [facility] 07/03/2024 3:00 AM EDT 07/04/2024 5:18 PM EDT us Ed Carver MD LAB BLOOD ORDERABLES Final Result Performing Organization Address [facility] Phone Number [facility] [address] [place] [address] * (ABNORMAL) Kt/V Natural Log, URR (07/03/2024 [...] PM EDT us Ed Carver MD LAB [id number] RESULTS Edited Result - Final Performing Organization Address City/[facility] [address]/ZIP Co de Phone Number [facility] [address] [place] [address] * (ABNORMAL) CBC and Differential (07/03/2024 3:00 [...] BLOOD ORDERABLES Final Result Performing Organization Address City/[facility] [address]/ZIP Co de Phone Number [facility] [address] [place] [address] documented in this encounter Visit Diagnoses Not on filedocumented in this encounter Care Teams Telephone Operator Chief Relationship Specialty Start Date End Date Alyssa Manzano DO [address] [place] [address] PCP - General Family Medicine 03/02/21 documented as of this encounter
--- OUTSIDE RECORDS SUMMARY | 2024-07-08 16:32 | XMS_ITS | Clinical Summary ---
Author Organization [facility] Address [address] [address] Phone Care Team Providers Care Christmas Tree Farmer Name Role Phone Katlyn Manzanofer Primary Care [...] Encounters Date Type Department Care Team Description 07/08/2024 Treatment [facility] [place] [id number] [address] Ed Carver MD End stage renal disease; Dependence on renal dialysis 07/03/2024 Orders Only [facility] [address] [address] Ed Carver MD 07/01/2024 Treatment [facility] [address] [address] Ed Carver MD End stage renal disease; Dependence on renal dialysis 06/19/2024 Treatment [facility] [place] [address] [address] Ed Carver MD End stage renal disease; Dependence on renal dialysis 06/17/2024 Treatment [facility] [address] [phone] Ed Carver MD End stage renal disease; Dependence on renal dialysis 06/14/2024 Treatment [facility] [address] [phone] Ed Carver MD End stage renal disease; Dependence on renal dialysis 06/07/2024 Treatment [facility] [address] [phone] Ed Carver MD End stage renal disease; Dependence on renal dialysis 05/22/2024 Treatment [facility] [address] [phone] Ed Carver MD End stage renal disease; Dependence on renal dialysis 05/13/2024 Treatment [facility] [address] [phone] Ed Carver MD End stage renal disease; Dependence on renal dialysis 05/08/2024 Treatment [facility] [address] [phone] Ed Carver MD End stage renal disease; Dependence on renal dialysis 05/03/2024 Treatment [facility] [address] [phone] Ed Carver MD End stage renal disease; Dependence on renal dialysis 04/22/2024 Treatment [facility] [address] [phone] Ed Carver MD 04/19/2024 Treatment [facility] [address] [phone] Ed Carver MD 04/12/2024 Treatment [facility] [address] [phone] Ed Carver MD from Last 3 Months [...] EDT MAGNESIUM Routine 07/03/2024 3:00 AM EDT [facility] (HC) Routine 07/03/2024 3:00 AM EDT ELECTROLYTE PANEL [...] EDT us Ed Carver MD LAB HISTORICA [id number] RESULTS Final Result Performing Organization Address [facility] Co de Phone Number [facility] [address] [place] [address] * (ABNORMAL) Kt/V Natural Log, URR (07/03/2024 3:00 AM EDT) Only the most recent of4 resultswithin the time period is included. Treatment Time 188 min [facility] Pre-Weight, lb [...] PM EDT us Ed Carver MD LAB [id number] RESULTS Edited Result - Final Performing Organization Address [facility]/ZIP Co de Phone Number [facility] [address] [place] [address] * (ABNORMAL) Calcium Phosphorus Product, Adjusted (07/03/2024 [...] PM EDT Ed Carver MD LAB HISTORICA [id number] RESULTS Final Result Performing Organization Address [facility]/ZIP Co de Phone Number [facility] [address] [place] [address] * Hepatitis B Surface Ag w/Reflex Confirmation (07/03/2024 3:00 AM EDT) Only the most recent of3 resultswithin the time period is included. Pathologist [facility] [place] Hep B Surface Antigen Negative Negative [facility] 07/03/2024 3:00 AM EDT 07/04/2024 5:18 PM EDT us Ed Carver MD LAB BLOOD ORDERABLES Final Result Performing Organization Address [facility]/ZIP Co de Phone Number [facility] [address] [place] [address] * BUN/CREATININE RATIO (07/03/2024 3:00 AM EDT) Pathologist [facility] [place] BUN/Creatinine Ratio 7.3 <=23.0 [facility] 07/03/2024 3:00 AM EDT 07/04/2024 5:18 PM EDT us Ed Carver MD LAB HISTORICA [id number] RESULTS Final Result Performing Organization Address [facility] de Phone Number [facility] [address] [place] [address] * (ABNORMAL) TSAT (07/03/2024 3:00 AM EDT) Only the most recent of3 resultswithin the time period is included. [facility] Iron 78 50 - 170 ug/dL [facility] Transferrin 184(L) 250 - 380 mg/dL [facility] TIBC 258 211 - 406 ug/dL [facility] Iron Saturation (TSat) 30 22 - 52 % [facility] 07/03/2024 3:00 AM EDT 07/04/2024 5:18 PM EDT us Ed Carver MD LAB BLOOD ORDERABLES Final Result Performing Organization Address [facility] de Phone Number [facility] [address] [place] [address] * (ABNORMAL) CBC and Differential (07/03/2024 3:00 AM EDT) Only the most recent of3 resultswithin the time period is included. [facility] DIFFERENTIAL MANUAL, 2 Not Indicated [...] BLOOD ORDERABLES Final Result Performing Organization Address [facility] Co de Phone Number [facility] [address] [place] [address] * (ABNORMAL) ALT (07/03/2024 3:00 AM EDT) Only the most recent of3 resultswithin the time period is included. ALT (SGPT) <7(L) 10 - 49 U/L [facility] 07/03/2024 3:00 AM EDT 07/04/2024 5:18 PM EDT Ed Carver MD LAB BLOOD ORDERABLES Final Result Performing Organization Address [facility] de Phone Number [facility] [address] [place] [address] * AST (07/03/2024 3:00 AM EDT) Only the most recent of3 resultswithin the time period is included. AST (SGOT) 25 <34 U/L [facility] 07/03/2024 3:00 AM EDT 07/04/2024 5:18 PM EDT Ed Carver MD LAB BLOOD ORDERABLES Final Result Performing Organization Address [facility] de Phone Number [facility] [address] [place] [address] * Protein, total (07/03/2024 3:00 AM EDT) Only the most recent of3 resultswithin the time period is included. Total Protein 8.1 6.4 - 8.9 g/dL [facility] 07/03/2024 3:00 AM EDT 07/04/2024 5:18 PM EDT Ed Carver MD LAB BLOOD ORDERABLES Final Result Performing Organization Address [facility] Co de Phone Number [facility] [address] [place] [address] * (ABNORMAL) Alkaline phosphatase (07/03/2024 3:00 AM EDT) Only the most recent of3 resultswithin the time period is included. Alkaline Phosphatase 169(H) 46 - 116 U/L [facility] 07/03/2024 3:00 AM EDT 07/04/2024 5:18 PM EDT Ed Carver MD LAB BLOOD ORDERABLES Final Result Performing Organization Address [facility] de Phone Number [facility] [address] [place] [address] * Magnesium (07/03/2024 3:00 AM EDT) Only the most recent of3 resultswithin the time period is included. Magnesium 2.5 1.9 - 2.7 mg/dL [facility] 07/03/2024 3:00 AM EDT 07/04/2024 5:18 PM EDT Ed Carver MD LAB BLOOD ORDERABLES Final Result Performing Organization Address [facility] de Phone Number [facility] [address] [place] [address] * (ABNORMAL) Lactate dehydrogenase (07/03/2024 3:00 AM EDT) Only the most recent of3 resultswithin the time period is included. LDH 284(H) 120 - 246 U/L [facility] 07/03/2024 3:00 AM EDT 07/04/2024 5:18 PM EDT Ed Carver MD LAB BLOOD ORDERABLES Final Result Performing Organization Address [facility] de Phone Number [facility] [address] [place] [address] * (ABNORMAL) Glucose, random (07/03/2024 3:00 AM EDT) Only the most recent of3 resultswithin the time period is included. Glucose 138(H) 70 - 99 mg/dL [facility] Comment: ADA guidelines outline the following fasting glucose ranges: Normal: ? <100 Prediabetes: 100-125 Diabetes: ? >125 07/03/2024 3:00 AM EDT 07/04/2024 5:18 PM EDT Ed Carver MD LAB BLOOD ORDERABLES Final Result Performing Organization Address [facility] de Phone Number [facility] [address] [place] [address] * Ferritin (07/03/2024 3:00 AM EDT) Only the most recent of3 resultswithin the time period is included. Ferritin 80 10 - 291 ng/mL [facility] 07/03/2024 3:00 AM EDT 07/04/2024 5:18 PM EDT dE Carver MD LAB BLOOD ORDERABLES Final Result Performing Organization Address [facility] de Phone Number [facility] [address] [place] [address] * (ABNORMAL) Creatinine, serum (07/03/2024 3:00 AM EDT) Only the most recent of3 resultswithin the time period is included. Creatinine 9.98(H) 0.55 - 1.02 mg/dL [facility] 07/03/2024 3:00 AM EDT 07/04/2024 5:18 PM EDT us Ed Carver MD LAB BLOOD ORDERABLES Final Result Performing Organization Address [facility] de Phone Number [facility] [address] [place] [address] * Bilirubin, total (07/03/2024 3:00 AM EDT) Only the most recent of3 resultswithin the time period is included. Total Bilirubin 0.3 0.3 - 1.2 mg/dL [facility] 07/03/2024 3:00 AM EDT 07/04/2024 5:18 PM EDT us Ed Carver MD LAB BLOOD ORDERABLES Final Result Performing Organization Address [facility] de Phone Number [facility] [address] [place] [address] * (ABNORMAL) Electrolyte panel (07/03/2024 3:00 AM EDT) Only the most recent of3 resultswithin the time period is included. Pathologist [facility] [place] Sodium 135(L) 136 - 145 mEq/L [facility] Potassium 4.3 3.4 - 5.0 mEq/L [facility] Chloride 96(L) 98 - 107 mEq/L [facility] Bicarbonate (CO2) 24 21 - 31 mEq/L [facility] Anion Gap 15(H) 3 - 14 mEq/L [facility] 07/03/2024 3:00 AM EDT 07/04/2024 5:18 PM EDT us Ed Carver MD LAB BLOOD ORDERABLES Final Result Performing Organization Address [facility] de Phone Number [facility] [address] [place] [address] * Collection Date (06/21/2024 3:00 AM EDT) [...] EDT us Ed Carver MD LAB HISTORICA [id number] RESULTS Final Result Performing Organization Address [facility] Co de Phone Number [facility] [address] [place] [address] * Hemoglobin (06/21/2024 3:00 AM EDT) Only the most recent of5 resultswithin the time period is included. Hgb 11.6 11.2 - 15.7 g/dL [facility] Hemoglobin x 3 34.8 33.6 - 47.1 g/dL [facility] 06/21/2024 3:00 AM EDT 06/24/2024 1:14 PM EDT Ed Carver MD LAB BLOOD ORDERABLES Final Result Performing Organization Address [facility] de Phone Number [facility] [address] [place] [address] * CO2 (06/07/2024 3:00 AM EDT) Bicarbonate (CO2) 24 21 - 31 mEq/L [facility] 06/07/2024 3:00 AM EDT 06/10/2024 12:19 PM EDT us Ed Carver MD LAB BLOOD ORDERABLES Final Result Performing Organization Address [facility] de Phone Number [facility] [address] [place] [address] * PTH, Intact (06/05/2024 3:00 AM EDT) [...] BLOOD ORDERABLES Final Result Performing Organization Address [facility] Co de Phone Number [facility] [address] [place] [address] * (ABNORMAL) Hemoglobin A1c (06/05/2024 3:00 AM [...] BLOOD ORDERABLES Final Result Performing Organization Address [facility] Co de Phone Number [facility] [address] [place] [address] * (ABNORMAL) Lipid panel (06/05/2024 3:00 AM [...] BLOOD ORDERABLES Final Result Performing Organization Address [facility] de Phone Number [facility] [address] [place] [address] * (ABNORMAL) Phosphorus (05/13/2024 3:00 AM EDT) Only the most recent of2 resultswithin the time period is included. Phosphorus, Serum 11.5(H) 2.5 - 5.0 mg/dL [facility] 05/13/2024 3:00 AM EDT 05/14/2024 12:27 PM EDT Ed Carver MD LAB BLOOD ORDERABLES Final Result Performing Organization Address [facility] de Phone Number [facility] [address] [place] [address] from Last 3 Months Insurance [facility] ([id number]) [facility] ([id number]) [facility] ([id number]) Care Teams Christmas Tree Farmer Relationship Specialty Start Date End Date Alyssa Maznano DO [address] [place] [address] PCP - General Family Medicine 03/02/21
--- OUTSIDE RECORDS SUMMARY | 2024-07-08 16:32 | XMS_ITS | Encounter Summary ---
Author Organization [facility] Address [address] [place] [address] Care Team Providers Care Nuclear Medicine Chief Technologist Name Role Phone Ed Nash MD Primary Care Provider Un available Community, Pcp Primary Care Provider Unavailabl e Community, Pcp Primary Care Provider Unavailabl e NugentChanda Primary Care Provider Unavailabl e Reason for Visit * Reason Onset Date Comments Provider Call Back 03/22/2016 Encounter Details Date Type Department Care Team Description 03/22/2016 Telephone General Surgery [address] [place] [address] Ksenia Villavicencio MD [address] [place] [address] Provider Call Back Social History Tobacco Use [...] on filedocumented in this encounter Care Teams Nuclear Medicine Chief Technologist Relationship Specialty Start Date End Date Ed Nash MD PCP - General Internal Medicine 11/11/15 Community, Pcp PCP - General Internal Medicine 07/27/16 08/21/17 Community, Pcp PCP - General Internal Medicine 08/22/17 01/09/18 Chanda Nugent PCP - General Internal Medicine 01/10/18 documented as of this encounter
--- OUTSIDE RECORDS SUMMARY | 2024-07-08 16:32 | XMS_ITS | Encounter Summary ---
Author Organization [facility] Address [address] [place] [address] Care Team Providers Care Blocker Heated Metal Forms Name Role Phone Community, Pcp Primary Care Provider Chanda Thapa Primary Care Provider Mindy mercado Encounter Details Date Type Department Care Team Description 10/04/2017 Release of Information Medical Records [address] [place] [id number] Abstract, Provider Social History Tobacco Use Types [...] on filedocumented in this encounter Care Teams Blocker Heated Metal Forms Relationship Specialty Start Date End Date Community, Pcp PCP - General Internal Medicine 08/22/17 01/09/18 Chanda Nugent PCP - General Internal Medicine 01/10/18 documented as of this encounter
--- OUTSIDE RECORDS SUMMARY | 2024-07-08 16:32 | XMS_ITS | Encounter Summary ---
Author Organization [facility] Address [address] [place] [address] Care Team Providers Care Hammer Shop Supervisor Name Role Phone Chanda Nugent Primary Care Provider Unavailabl e Encounter Details Date Type Department Care Team Description 04/02/2018 [facility] Medical Records [address] [place] [id number] Hayden Troncoso MD Social History Tobacco Use [...] on filedocumented in this encounter Care Teams Hammer Shop Supervisor Relationship Specialty Start Date End Date Chanda Nugent PCP - General Internal Medicine 01/10/18 documented as of this encounter
--- OUTSIDE RECORDS SUMMARY | 2024-07-08 16:32 | XMS_ITS | Encounter Summary ---
Author Organization [facility] Address [address] [place] [phone] Phone Care Team Providers Care Casino Accountant Name Role Phone Mary Manzanonifer Primary Care Provider Unava ilable Encounter Details Date Type Department Care Team (Late st Contact Info) Description 07/08/2024 Treatment [facility] [address] [phone] Placido Carver MD [address] [address] End stage renal disease; Dependence [...] Dialysis Note - Placido Carver MD - 07/08/2024 12:00 AM EDT BASIC NOTE Patient: Shereen Taylor : 1990 Note Author: PLACIDO CARVER MD Service Date: 07/08/2024 This patient was personally seen for a basic visit as part of routine monthly dialysis care for end stage renal disease. Attending Furniture Mover Driver: PLACIDO CARVER MD Dialysis Location: [facility] Schedule: Shift: 2 OVERVIEW Patient is stable. ADEQUACY ASSESSMENT Kt/V, Natural Log 1.26 (07/03/24) 1.49 (06/05/24) 1.45 (05/01/24) UREA REDUCTION RATIO (%) 67 (07/03/24) 73 (06/05/24) 69 (05/01/24) BUN 73 (07/03/24) 81 (06/05/24) 80 (05/01/24) BUN Post Dialysis 24 (07/03/24) 22 (06/05/24) 25 (05/01/24) Creatinine 9.98 (07/03/24) 10.61 (06/05/24) 7.77 (05/01/24) Bicarbonate (CO2) 24 (07/03/24) 24 (06/07/24) 19 (06/05/24) Sodium 135 (07/03/24) 130 (06/05/24) 137 (05/01/24) ANEMIA ASSESSMENT Hgb 11.4 (07/03/24) 11.6 (06/21/24) 9.3 (06/14/24) Iron Saturation (TSat) 30 (07/03/24) 19 (06/05/24) 10 (05/01/24) Ferritin 80 (07/03/24) 134 (06/05/24) 39 (05/01/24) Iron 78 (07/03/24) 52 (06/05/24) 37 (05/01/24) TIBC 258 (07/03/24) 277 (06/05/24) 363 (05/01/24) MCV 91.0 (07/03/24) 88.0 (06/05/24) 94.6 (05/01/24) Platelets 113 (07/03/24) 144 (06/05/24) 125 (05/01/24) BMM ASSESSMENT Calcium, Adjusted Total 8.2 07/03/24 8.4 06/05/24 8.7 05/01/24 Calcium 8.2 07/03/24 8.4 06/05/24 8.6 05/01/24 Phosphorus, Serum 10.1 07/03/24 9.5 06/05/24 11.5 05/13/24 Ca*PO4 82.8 07/03/24 79.8 06/05/24 88.6 05/01/24 PTH, Intact 390 06/05/24 509 05/01/24 453 03/06/24 Vitamin D, 25-Hydroxy 17 01/23/24 Magnesium 2.5 07/03/24 2.6 06/05/24 2.9 05/01/24 Alkaline Phosphatase 169 07/03/24 235 06/05/24 242 05/01/24 Aluminum 7 03/06/24 5 02/12/24 NUTRITION ASSESSMENT Albumin 4.0 07/03/24 4.0 06/05/24 3.9 05/01/24 Potassium 4.3 07/03/24 5.4 06/05/24 5.5 05/01/24 Hemoglobin A1C 5.9 06/05/24 5.4 03/06/24 5.1 01/23/24 ADDITIONAL LABS White Blood Cells 5.5 (07/03/24) 5.4 (06/05/24) 3.8 (05/01/24) Cholesterol 140 (06/05/24) 106 (03/06/24) 95 (01/23/24) HDL 38 (06/05/24) 34 (03/06/24) 33 (01/23/24) LDL-Calc 90 (06/05/24) 64 (03/06/24) 53 (01/23/24) Triglycerides 62 (06/05/24) 42 (03/06/24) 45 (01/23/24) Hep B Surface Antibody 7 (03/06/24) 4 (01/23/24) Uric Acid 8.6 (03/06/24) 6.3 (01/23/24) Signed by: PLACIDO CARVER MD on 07/08/2024 at 12:05:33 PM Transcribed by: PLACIDO CARVER MD on 07/08/2024 at 12:05:33 PM documented in this encounter Plan of Treatment Not on file documented as of this encounter Visit Diagnoses Diagnosis End stage renal disease Dependence on renal dialysis documented in this encounter Care Teams Casino Accountant Relationship Specialty Start Date End Date Alyssa Manzano DO [address] [place] [address] PCP - General Family Medicine 03/02/21 documented as of this encounter
--- OUTSIDE RECORDS SUMMARY | 2024-07-08 16:32 | XMS_ITS | Encounter Summary ---
Author Organization [facility] Address [address] [place] [address] Care Team Providers Care Gum Rolling Machine Operator Name Role Phone Community, Pcp Primary Care Provider Chanda Thapa Primary Care Provider Mindy mercado Encounter Details Date Type Department Care Team Description 11/02/2017 [facility] Medical Records [address] [place] [phone] Hayden Troncoso MD Social History Tobacco Use [...] on filedocumented in this encounter Care Teams Gum Rolling Machine Operator Relationship Specialty Start Date End Date Community, Pcp PCP - General Internal Medicine 08/22/17 01/09/18 Chanda Nugent PCP - General Internal Medicine 01/10/18 documented as of this encounter
--- OUTSIDE RECORDS SUMMARY | 2024-07-08 16:32 | XMS_ITS | Encounter Summary ---
Author Organization [facility] Address [address] [place] [address] Care Team Providers Care Emblem Drawer In Name Role Phone Chanda Nugent Primary Care Provider Unavailabl e Encounter Details Date Type Department Care Team Description 07/01/2018 Telephone Pulmonology - [address] [place] [address] Erna Nunez MD Social History Tobacco Use Types Packs/Day [...] on filedocumented in this encounter Care Teams Emblem Drawer In Relationship Specialty Start Date End Date Chanda Nugent PCP - General Internal Medicine 01/10/18 documented as of this encounter
[2024-07-08 16:38] LABS: Alanine Aminotransferase < 6 U/L (0-31); Anion Gap 17 (12-20); Aspartate Amino Transferase 53 U/L (5-31); Bilirubin Direct 0.3 mg/dL (0.0-0.5); Bilirubin Total 0.8 mg/dL (0.0-1.0); Blood Urea Nitrogen 31 mg/dL (9-16); Calcium 9.7 mg/dL (8.4-10.2); Carbon Dioxide 27 mmol/L (22-29); Chloride 97 mmol/L (96-108); Creatinine Clr Calc Pharmacy 15.1; Estimated Glomerular Filt Rate 9; Glucose Random 124 mg/dL (60-115); Magnesium 2.3 mg/dL (1.6-2.6); Sodium 137 mmol/L (135-145); Total Protein 8.6 g/dL (6.5-8.0)
[2024-07-08 16:39] LABS: Troponin-I High Sensitivity 71.1 ng/L (<3.5-17.0)
[2024-07-08 16:40] LABS: Alkaline Phosphatase 195 U/L (39-117)
[2024-07-08 16:46] VITALS: RESP 18
[2024-07-08] MEDS: HYDROmorphone HCl 2 MG/ML VIAL IVPUSH (16:46)
[2024-07-08 17:12] LABS: Influenza A PCR NEGATIVE (Negative); Influenza B PCR NEGATIVE (Negative); Resp Syncy Virus RNA Qual PCR NEGATIVE (Negative); SARS COV2 PCR INHOUSE NEGATIVE (Negative)
[2024-07-08] MEDS: iohexoL 350 MG/ML 100 ML INFUS..BTL IV (17:45)
[2024-07-08 19:22] VITALS: BP 164/57; PULSE 89; RESP 10; O2SAT 100
[2024-07-08 19:57] LABS: Troponin-I High Sensitivity 74.8 ng/L (<3.5-17.0)
[2024-07-08 21:30] VITALS: BP 147/40; PULSE 83; RESP 16; TEMP 36.7; O2SAT 98
== END 2024-07-08 21:34 | disposition home or self-care (01) ==
PROVIDERS: Physician Assistant; Emergency Provider Emergency Medicine; PCP Student in an Organized Health Care Education/Training Program
DX: R07.9 Chest pain, unspecified (principal); E11.22 Type 2 diabetes mellitus with diabetic chronic kidney disease; I13.2 Hypertensive heart and chronic kidney disease with heart failure and with stage 5 chronic kidney disease, or end stage renal disease; I50.20 Unspecified systolic (congestive) heart failure; N18.6 End stage renal disease; Z99.2 Dependence on renal dialysis; Z91.158 Patient's noncompliance with renal dialysis for other reason; I45.10 Unspecified right bundle-branch block; J45.909 Unspecified asthma, uncomplicated; Z03.818 Encounter for observation for suspected exposure to other biological agents ruled out; Z79.899 Other long term (current) drug therapy
CPT/HCPCS: 0241U; 36415; 71045; 71275; 75635; 80048; 80076; 83735; 84484; 85025; 93005; 96374; 99284; 99285; J1171; Q9967

== ENCOUNTER → 2024-07-08 15:36 | Outpatient (BNV) | payer OTHER, SELFPAY | PROVIDERS: Emergency Provider Emergency Medicine; PCP Student in an Organized Health Care Education/Training Program; Visit Provider Internal Medicine Cardiovascular Disease | DX: I45.10 Unspecified right bundle-branch block (principal) | CPT/HCPCS: 93010 ==

== ENCOUNTER → 2024-07-08 15:36 | Outpatient (BNV) | payer OTHER, SELFPAY | PROVIDERS: Emergency Provider Emergency Medicine; PCP Student in an Organized Health Care Education/Training Program; Visit Provider Radiology Diagnostic Radiology | DX: I25.84 Coronary atherosclerosis due to calcified coronary lesion (principal); I70.1 Atherosclerosis of renal artery; R07.9 Chest pain, unspecified | CPT/HCPCS: 71045; 71275; 75635 ==

== ENCOUNTER 2024-07-11 12:28 | Emergency (ER) | payer OTHER, SELFPAY ==
[2024-07-11] VITALS (7 sets, daily range): BP systolic 173–192; BP diastolic 91–116; PULSE 83–95; RESP 11–20; TEMP 36.1–36.3; O2SAT 96–100; BMI 27.0
--- NOTE | 2024-07-11 | ECG_ITS ---
Test Reason : cp Blood Pressure : */* mmHG Vent. Rate : 91 BPM Atrial Rate : 91 BPM P-R Int : 176 ms QRS Dur : 148 ms QT Int : 448 ms P-R-T Axes : 53 -25 86 degrees QTcB Int : 551 ms Normal sinus rhythm Possible Left atrial enlargement Right bundle branch block Abnormal ECG When compared with ECG of 08-Jul-2024 16:19, Nonspecific T wave abnormality no longer evident in Inferior leads T wave inversion less evident in Lateral leads Referred By: Generic ED Physician Electronically Signed By: HATTIE BAÑUELOS MD
--- NOTE | ~2024-07-11 | US_ITS ---
EXAMINATION: US TRIPLEX LOWER EXTREMITY, LEFT CLINICAL INFORMATION: Calf pain, rule out DVT. COMPARISON: 11/11/2023. TECHNIQUE: Color-flow triplex imaging with spectral analysis and compression Doppler were performed on the left lower extremity. FINDINGS: Respiratory variation, normal compression and augmented flow are noted throughout the left lower extremity. The visualized common femoral vein, superficial femoral vein, profunda femoral vein, popliteal vein and midcalf peroneal and posterior tibial venous segments show no evidence of deep venous thrombosis. There is no Underwood's cyst. There are reactive appearing lymph nodes in the left groin. US/US venous duplex LE LT IMPRESSION: No evidence of deep venous thrombosis involving the left lower extremity. Electronically signed by: Damon Alanis MD 07/11/2024 03:17 PM EDT
--- NOTE | ~2024-07-11 | XR_ITS ---
EXAMINATION: XR CHEST CLINICAL INFORMATION: cp COMPARISON: None available. TECHNIQUE: Frontal view of the chest was obtained. FINDINGS: Right-sided tunneled dialysis catheter in place with tip in the right atrium. There is moderate cardiomegaly. Mediastinal hilar contours appear normal. The lungs are clear bilaterally. No pneumothorax or effusion. No focal osseous or soft tissue abnormality. XR/XR chest 1V IMPRESSION: 1. Dialysis catheter in good position. 2. Cardiomegaly. 3. No active lung disease. Electronically signed by: Damon Alanis MD 07/11/2024 03:47 PM EDT
--- NOTE | ~2024-07-11 | XR_ITS ---
EXAMINATION: XR FOOT, LEFT CLINICAL INFORMATION: chronic wound, ? osteo COMPARISON: None available. TECHNIQUE: AP, lateral, and oblique views of the left foot. FINDINGS: There has been prior amputation of the digits at the mid to distal metatarsal levels. No fracture, dislocation, or suspicious bone lesion. No region of osteopenia or permeative bony change to suggest radiographic changes of osteomyelitis. There is a pes planus deformity with Charcot changes of the midfoot. Soft tissues demonstrate an ulceration in the mid plantar region. There are diffuse vascular calcifications. No soft tissue emphysema. XR/XR foot LT min 3V IMPRESSION: 1. Ulceration mid plantar region without subcutaneous emphysema. 2. No radiographic evidence of osteomyelitis. 3. Charcot changes of the midfoot. Pes planus. 4. Amputation of the digits at the mid to distal metatarsal levels. Electronically signed by: Damon Alanis MD 07/11/2024 03:50 PM EDT
--- OUTSIDE RECORDS SUMMARY | 2024-07-11 13:01 | XMS_ITS | Clinical Summary ---
Author Organization [facility], Located Within [facility] Address [address] [place] [address] Care Team Providers Care Supply Person Name Role Phone Unavailable Primary Care Provider [...] 0.79 S/CO ratio 01/10/2022 10:39 AM EST [employer] Hepatitis C Antibody Interpretation Nonreactive Nonreactive 01/10/2022 10:39 AM EST [employer] Blood specimen (specimen) (Plasma/Serum) 01/09/2022 8:34 AM EST 01/09/2022 9:21 AM EST us Jaziel B Post MD LAB BLOOD ORDERABLES Final Resu lt [facility]OSPITAL [facility] [employer] [address] [employer] [place] [id number] * HIV 1/2 Ag/Ab CMIA Reflex to Confirmation (01/09/2022 8:34 AM EST) HIV 1/2 Ag/Ab CMIA Nonreactive Nonreactive 01/10/2022 10:39 AM EST [employer] Comment: Results show no evidence of infection [...] Post LAB BLOOD ORDERABLES Final Resu lt [facility] [address] [place] [address] from Last 3 Months or Most Recently Relevant to Health Maintenance Insurance [facility] MISC MGD MEDICARE OUT OF NETWORK Advance Directives * Full Code (Latest Code Status on File) Date Activated Date Inactivated Comments 01/06/2022 5:00 AM Question Answer Comments Decision Thoroughly Discussed with: Unable to Di scuss
--- OUTSIDE RECORDS SUMMARY | 2024-07-11 13:01 | XMS_ITS | Clinical Summary ---
[email or web address] Address [address] [place] [address] Care Team Providers Care Casing In Line Setter Name Role Phone Betty Nugent MD Primary Care Provider [phone] Surgical History Surgery Date Site/Laterality Comments SECTION [...] age to complete this topic Care Teams Casing In Line Setter Relationship Specialty Start Date End Date Betty Nugent MD [address] [place] PCP - General Internal Medicine 01/10/18
--- OUTSIDE RECORDS SUMMARY | 2024-07-11 13:01 | XMS_ITS | Encounter Summary ---
Author Organization [facility] Address [address] [place] [phone] Phone Care Team Providers Care Program Coordinator Executive Education Name Role Phone Katlyn Manzanofer Primary Care Provider Unava ilable Encounter Details Date Type Department Care Team (Late st Contact Info) Description 07/08/2024 Treatment [facility] [address] [phone] Placido Carver MD [address] [address] End stage renal disease; Dependence [...] care for end stage renal disease. Attending [place] Commissioner: PLACIDO CARVER MD Dialysis Location: [facility] Schedule: Shift: 2 OVERVIEW [...] dialysis documented in this encounter Care Teams Program Coordinator Executive Education Relationship Specialty Start Date End Date Alyssa Manzano DO [address] [place] [phone] PCP - General Family Medicine 03/02/21 documented as of this encounter
--- OUTSIDE RECORDS SUMMARY | 2024-07-11 13:01 | XMS_ITS | Clinical Summary ---
Author Organization [facility] Address [address] [phone] Phone Care Team Providers Care Program Services Assistant Name Role Phone Katlyn Manzanofer Primary Care [...] 07/08/2024 Treatment [facility] [place] [id number] [phone] Ed Carver MD End stage renal disease; Dependence on renal dialysis 07/03/2024 Orders Only [facility] [address] [phone] Ed Carver MD 07/01/2024 Treatment [facility] [address] [phone] Ed Carver MD End stage renal disease; Dependence on renal dialysis 06/19/2024 Treatment [facility] [place] [address] [address] Ed Carver MD End stage renal disease; Dependence on renal dialysis 06/17/2024 Treatment [facility] [address] [phone] Ed Carver MD End stage renal disease; Dependence on renal dialysis 06/14/2024 Treatment [facility] [address] [phone] Ed Carver MD End stage renal disease; Dependence on renal dialysis 06/07/2024 Treatment [facility] [address] [phone] Ed Carver MD End stage renal disease; Dependence on renal dialysis 05/22/2024 Treatment [facility] [address] [phone] Ed Carver MD End stage renal disease; Dependence on renal dialysis 05/13/2024 Treatment [facility] [address] [phone] Ed Carver MD End stage renal disease; Dependence on renal dialysis 05/08/2024 Treatment [facility] [address] [phone] Ed Carver MD End stage renal disease; Dependence on renal dialysis 05/03/2024 Treatment [facility] [address] [phone] Ed Carver MD End stage renal disease; Dependence on renal dialysis 04/22/2024 Treatment [facility] [address] [phone] Ed Carver MD 04/19/2024 Treatment [facility] [address] [phone] Ed Carver MD from Last 3 Months [...] EST HEMOGLOBIN Routine 04/17/2024 3:00 AM EST from Last 3 Months Results * LI (07/03/2024 3:00 AM EDT) Only the most recent of6 resultswithin the time period is included. Lipemia Normal Normal [facility] Icterus Normal Normal [facility] Hemolysis Normal Normal [facility] 07/03/2024 3:0 0 AM EDT 07/04/2024 5:18 PM EDT us Ed Carver MD LAB HISTORICA [id number] RESULTS Final Result Performing Organization Address [facility] de Phone Number [facility] [address] [place] [address] * (ABNORMAL) Kt/V Natural Log, URR (07/03/2024 3:00 AM EDT) Only the most recent of3 resultswithin the time period is included. Treatment [...] PM EDT us Ed Carver MD LAB [id number] RESULTS Edited Result - Final Performing Organization Address [facility] de Phone Number [facility] [address] [place] [address] * (ABNORMAL) Calcium Phosphorus Product, Adjusted (07/03/2024 [...] EDT us Ed Carver MD LAB HISTORICA [id number] RESULTS Final Result Performing Organization Address [facility] Co de Phone Number [facility] [address] [place] [address] * Hepatitis B Surface Ag w/Reflex Confirmation (07/03/2024 3:00 AM EDT) Only the most recent of3 resultswithin the time period is included. Hep B Surface Antigen Negative Negative [facility] 07/03/2024 3:00 AM EDT 07/04/2024 5:18 PM EDT us Ed Carver MD LAB BLOOD ORDERABLES Final Result Performing Organization Address [facility] Co de Phone Number [facility] [address] [place] [address] * BUN/CREATININE RATIO (07/03/2024 3:00 AM EDT) BUN/Creatinine Ratio 7.3 <=23.0 [facility] 07/03/2024 3:00 AM EDT 07/04/2024 5:18 PM EDT us Ed Carver MD LAB HISTORICA [id number] RESULTS Final Result Performing Organization Address [facility] Co de Phone Number [facility] [address] [place] [address] * (ABNORMAL) TSAT (07/03/2024 3:00 AM EDT) [...] ORDERABLES Final Result [facility] [address] [place] [address] * (ABNORMAL) CBC and Differential (07/03/2024 3:00 AM EDT) Only the most recent of3 resultswithin the time period is included. Pathologist [facility] DIFFERENTIAL MANUAL, 2 Not Indicated [...] BLOOD ORDERABLES Final Result Performing Organization Address [facility] de Phone Number [facility] [address] [place] [address] * (ABNORMAL) ALT (07/03/2024 3:00 AM EDT) Only the most recent of3 resultswithin the time period is included. ALT (SGPT) <7(L) 10 - 49 U/L [facility] 07/03/2024 3:00 AM EDT 07/04/2024 5:18 PM EDT us Ed Carver MD LAB BLOOD ORDERABLES Final Result Performing Organization Address [facility] de Phone Number [facility] [address] [place] [address] * AST (07/03/2024 3:00 AM EDT) Only the most recent of3 resultswithin the time period is included. AST (SGOT) 25 <34 U/L [facility] 07/03/2024 3:00 AM EDT 07/04/2024 5:18 PM EDT us Ed Carver MD LAB BLOOD ORDERABLES Final Result Performing Organization Address [facility] de Phone Number [facility] [address] [place] [address] * Protein, total (07/03/2024 3:00 AM EDT) Only the most recent of3 resultswithin the time period is included. Total Protein 8.1 6.4 - 8.9 g/dL [facility] 07/03/2024 3:00 AM EDT 07/04/2024 5:18 PM EDT us Ed Carver MD LAB BLOOD ORDERABLES Final Result Performing Organization Address [facility]/ZIP Co de Phone Number [facility] [address] [place] [address] * (ABNORMAL) Alkaline phosphatase (07/03/2024 3:00 AM EDT) Only the most recent of3 resultswithin the time period is included. Alkaline Phosphatase 169(H) 46 - 116 U/L [facility] 07/03/2024 3:00 AM EDT 07/04/2024 5:18 PM EDT Ed Carver MD LAB BLOOD ORDERABLES Final Result Performing Organization Address [facility] de Phone Number [facility] [address] [place] [address] * Magnesium (07/03/2024 3:00 AM EDT) Only the most recent of3 resultswithin the time period is included. Magnesium 2.5 1.9 - 2.7 mg/dL [facility] 07/03/2024 3:00 AM EDT 07/04/2024 5:18 PM EDT Ed Carver MD LAB BLOOD ORDERABLES Final Result Performing Organization Address [facility] de Phone Number [facility] [address] [place] [address] * (ABNORMAL) Lactate dehydrogenase (07/03/2024 3:00 AM EDT) Only the most recent of3 resultswithin the time period is included. LDH 284(H) 120 - 246 U/L [facility] 07/03/2024 3:00 AM EDT 07/04/2024 5:18 PM EDT Ed Carver MD LAB BLOOD ORDERABLES Final Result Performing Organization Address [facility] Co de Phone Number [facility] [address] [place] [address] * (ABNORMAL) Glucose, random (07/03/2024 3:00 AM EDT) Only the most recent of3 resultswithin the time period is included. Glucose 138(H) 70 - 99 mg/dL [facility] Comment: ADA guidelines outline the following fasting glucose ranges: Normal: ? <100 Prediabetes: 100-125 Diabetes: ? >125 07/03/2024 3:00 AM EDT 07/04/2024 5:18 PM EDT Ed Carver MD LAB BLOOD ORDERABLES Final Result Performing Organization Address City/[facility]/ZIP Co de Phone Number [facility] [address] [place] [address] * Ferritin (07/03/2024 3:00 AM EDT) Only the most recent of3 resultswithin the time period is included. Ferritin 80 10 - 291 ng/mL [facility] 07/03/2024 3:00 AM EDT 07/04/2024 5:18 PM EDT Ed Carver MD LAB BLOOD ORDERABLES Final Result Performing Organization Address [facility] de Phone Number [facility] [address] [place] [address] * (ABNORMAL) Creatinine, serum (07/03/2024 3:00 AM EDT) Only the most recent of3 resultswithin the time period is included. Creatinine 9.98(H) 0.55 - 1.02 mg/dL [facility] 07/03/2024 3:00 AM EDT 07/04/2024 5:18 PM EDT Ed Carver MD LAB BLOOD ORDERABLES Final Result Performing Organization Address City/[facility] Co de Phone Number [facility] [address] [place] [address] * Bilirubin, total (07/03/2024 3:00 AM EDT) Only the most recent of3 resultswithin the time period is included. Total Bilirubin 0.3 0.3 - 1.2 mg/dL [facility] 07/03/2024 3:00 AM EDT 07/04/2024 5:18 PM EDT us Ed Carver MD LAB BLOOD ORDERABLES Final Result Performing Organization Address [facility] de Phone Number [facility] [address] [place] [address] * (ABNORMAL) Electrolyte panel (07/03/2024 3:00 AM [...] BLOOD ORDERABLES Final Result Performing Organization Address [facility] de Phone Number [facility] [address] [place] [address] * Collection Date (06/21/2024 3:00 AM EDT) [...] EDT us Ed Carver MD LAB HISTORICA [id number] RESULTS Final Result Performing Organization Address [facility] de Phone Number [facility] [address] [place] [address] * Hemoglobin (06/21/2024 3:00 AM EDT) Only the most recent of5 resultswithin the time period is included. Hgb 11.6 11.2 - 15.7 g/dL [facility] Hemoglobin x 3 34.8 33.6 - 47.1 g/dL [facility] 06/21/2024 3:00 AM EDT 06/24/2024 1:14 PM EDT us Ed Carver MD LAB BLOOD ORDERABLES Final Result Performing Organization Address [facility] de Phone Number [facility] [address] [place] [address] * CO2 (06/07/2024 3:00 AM EDT) Bicarbonate (CO2) 24 21 - 31 mEq/L [facility] 06/07/2024 3:00 AM EDT 06/10/2024 12:19 PM EDT us Ed Carver MD LAB BLOOD ORDERABLES Final Result Performing Organization Address [facility] Phone Number [facility] [address] [place] [address] * PTH, Intact (06/05/2024 3:00 AM EDT) [...] BLOOD ORDERABLES Final Result Performing Organization Address [facility]/State/ZIP Co de Phone Number [facility] [address] [place] [address] * (ABNORMAL) Hemoglobin A1c (06/05/2024 3:00 AM [...] ORDERABLES Final Result [facility] [address] [place] [address] * (ABNORMAL) Lipid panel (06/05/2024 3:00 AM [...] BLOOD ORDERABLES Final Result Performing Organization Address City/[facility]/ZIP Co de Phone Number [facility] [address] [place] [address] * (ABNORMAL) Phosphorus (05/13/2024 3:00 AM EDT) Only the most recent of2 resultswithin the time period is included. Phosphorus, Serum 11.5(H) 2.5 - 5.0 mg/dL [facility] 05/13/2024 3:00 AM EDT 05/14/2024 12:27 PM EDT us Ed Carvre MD LAB BLOOD ORDERABLES Final Result Performing Organization Address City/[facility] Co de Phone Number [facility] [address] [place] [address] from Last [address] [place] [address] [facility] ([id number]) [facility] ([id number]) * Guarantor: Shereen Taylor Account Type Relation to Patient Date of Phone Billing Address Personal/Family Self 1990 [address] [facility] [address] [place] [id number] [facility] ([id number]) Care Teams Program Services Assistant Relationship Specialty Start Date End Date Alyssa Manzano DO [address] [place] [address] PCP - General Family Medicine 03/02/21
--- NOTE | 2024-07-11 13:46 | ED_ITS ---
HPI - Chest Pain General Chief Complaint: Chest Pain Stated Complaint: Chest pain/ Hypertensive from dialysis Time Seen by Provider: 07/11/24 13:29 Source: patient and EMS Mode of arrival: EMS Limitations: no limitations History of Present Illness ED Provider: Paty HPI narrative: Patient is a 33-year-old female with history of end-stage renal disease on dialysis Sunday/ but refuses to go on Saturdays, numerous hospital admissions secondary to nonadherence with her hemodialysis,?diabetes, diabetic retinopathy with associated blindness, peripheral vascular disease now status post bilateral trans metatarsal amputation, poorly controlled hypertension secondary to nonadherence with her medications, chronic respiratory failure on supplemental oxygen at home, heart failure with reduced ejection fraction, substance abuse, mood disorder, chronic pain , chronic chest pain , presents with 3 days of chest pain that originates under bilateral breasts and radiates to back. She is reporting severe pain of her left lower leg and foot due to chronic wound (3 years). Patient states she has been taking her HTN medications, and completed dialysis yesterday (07/10). She denies nausea, vomiting, abdominal pain. Related Data Home Medications ?Medication ?Instructions ?Recorded ?Confirmed albuterol sulfate 90 mcg/actuation 2 puff inhalation Q6H PRN wheezing 01/15/24 07/03/24 aerosol inhaler (Ventolin HFA) lidocaine 5 % topical patch 1 patch topical DAILY PRN Pain 01/15/24 07/03/24 nitroglycerin 0.4 mg sublingual 0.4 mg sublingual DIRECTED PRN 01/15/24 07/03/24 tablet Angina acetaminophen 325 mg tablet 650 mg PO Q4H PRN mild pain 03/11/24 07/03/24 oxycodone 5 mg tablet 5 mg PO Q8H PRN Pain 05/25/24 07/03/24 calcium carbonate (Tums) 200 mg PO TIDWM 07/03/24 07/03/24 Previous Rx's ?Medication ?Instructions ?Recorded carvedilol 12.5 mg tablet 12.5 mg PO BID 90 days #180 tabs 12/16/23 hydralazine 50 mg tablet 50 mg PO TID 90 days #270 tabs 12/16/23 cefazolin 2 gram intravenous 2 g IV . and 06/03/24 solution ondansetron 4 mg disintegrating 4 mg PO Q8H PRN nausea and 07/06/24 tablet vomiting #12 tabs Allergies Allergy/AdvReac Type Severity Reaction Status Date / Time morphine [MORPHINE] Allergy Intermediate Itching Verified 07/11/24 12:53 azithromycin [From Zithromax] Allergy Hives Verified 07/11/24 12:53 gabapentin Allergy Facial Verified 07/11/24 12:53 Swelling tramadol Allergy Facial Verified 07/11/24 12:53 Swelling vancomycin Allergy Anaphylaxis Verified 07/11/24 12:53 Review of Systems 2 Review of Systems: Yes all other systems are reviewed and are negative Constitutional: Constitutional: Reports no additional constitutional complaints, Denies body ache(s), Denies chills, Denies fever(s), Denies headache(s) and Denies weakness Eyes: Eyes: Reports no additional eye complaints and Denies change in vision ENT: Reports system reviewed and no additional complaints, except as documented, Denies dizziness, Denies headache(s), Denies nasal congestion, Denies nasal discharge and Denies neck pain Cardiovascular: Cardiovascular: Reports no additional cardiovascular complaints, Reports chest pain, Denies leg edema and Denies dyspnea Respiratory: Respiratory: Reports no additional respiratory complaints, Denies cough and Denies dyspnea Gastrointestinal: Gastrointestinal: Reports no additional gastrointestinal complaints, Denies abdominal pain, Denies diarrhea, Denies nausea and Denies vomiting Genitourinary: Genitourinary: Reports no additional female genitourinary complaints and Denies urinary incontinence Musculoskeletal: Musculoskeletal: Reports no additional musculoskeletal complaints, Denies back pain, Reports arthralgias, Denies joint swelling, Denies neck pain, Denies numbness and Denies tingling Integumentary/Breasts: Skin/Breast: Reports system reviewed and no additional complaints, except as docu, Denies rash and Reports wounds Neurologic: Reports system reviewed and no additional complaints, except as documented, Denies dizziness, Denies headache(s), Denies numbness, Denies tingling and Denies weakness PMFSH Past Medical History Attestation statement: The following information was validated with the patient. Source: old records reviewed and nursing notes reviewed Medical History ESRD (end stage renal disease) Hypotonic neurogenic bladder Diabetic polyneuropathy ESRD (end stage renal disease) on dialysis Hypertensive emergency Non-compliance with renal dialysis Decompensated heart failure Congestive heart failure Renal failure Hypertension, uncontrolled Medical non-compliance Pericarditis Unspecified hypertension, condition or complication Metabolic acidosis Gastroparesis End stage chronic kidney disease Chronic kidney disease Anemia Chronic foot ulcer Plantar ulcer of left foot Major depressive disorder, single episode, severe Non-compliance with renal dialysis Hypertensive urgency MDD (major depressive disorder), recurrent episode MDD (major depressive disorder) Renal failure Foot ulcer CKD (chronic kidney disease) Hypertension Diabetic foot Hyperkalemia Vomiting Renal failure Hypertension Migraine Chronic pain ESRD on dialysis Non-compliance with renal dialysis Hypertension End-stage renal disease (ESRD) Diabetic foot ulcer associated with type 2 diabetes mellitus Diabetes ESRD needing dialysis Cardiomyopathy HFrEF (heart failure with reduced ejection fraction) delivery delivered Anemia in chronic kidney disease (CKD) CKD (chronic kidney disease) Headache, migraine Abnormal finding on echocardiogram Elevated troponin Chest pain Acute worsening of stage 3 chronic kidney disease Generalized edema Sepsis Cellulitis Pleural effusion CHF (congestive heart failure) (~06/07/22) Tachycardia Atypical chest pain Bone infection PAD (peripheral artery disease) Severe anemia Cellulitis and abscess of foot DM foot ulcer Osteomyelitis Asthma Depression with anxiety Diabetic retinopathy Type 2 diabetes mellitus with hyperglycemia, with long-term current use of insulin Blind right eye Diabetes Back pain Surgical History Tubal ligation status Previous section Hx laparoscopic cholecystectomy Hx of surgical procedure (~09/11/23) 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 Family History Family History Mother Coronary artery disease Myocardial infarction Stroke Diabetes mellitus Father Myocardial infarction Social History Social History Household Members: Family Household Members Other:: sister Housing: Apartment Are you a primary pediatric care coordinator to a significant other at home: No Do you presently have visiting nurse or other home services: No Unable to assess alcohol history related to: Unknown Alcohol intake: never Comment: Patient refusing assistance OOB and alarms as well as camera despite educat Patient Tobacco Use Status: Never used Tobacco Smoked in Last 30 Days: No e-Cigarette/Vaping Use: Never Used Second Hand Smoke Exposure: No Advance Directives: Yes Advance Directives on File: Yes Advance Directives Date on File: 09/04/23 Do you have a plan to hurt others: No Plan service: No Current occupational status: unemployed and disabled Gender identity: Female Physical Exam 2 Vital Signs: Vital Signs: Last Vital Signs Temp 97.0 F 07/11/24 16:45 Pulse 84 07/11/24 18:14 Resp 19 07/11/24 18:14 BP 173/93 H 07/11/24 18:14 Pulse Ox 96 07/11/24 18:14 O2 Del Method Room Air 07/11/24 18:14 BMI result Body Mass Index 27.0 Const: General: cooperative, healthy appearing, comfortable and no acute distress Orientation/consciousness: patient oriented x3 Limitations: no limitations HEENT: Head: Yes normal to inspection Ears: hearing grossly normal bilaterally General nose exam: Normal external nose present Face and sinus: Yes normal facial exam Mouth: Normal oral and palatal mucosa present Throat: Yes posterior oropharynx normal Neck: Neck: Yes normal visual inspection Chest: Chest palpation & inspection: normal inspection of the chest Resp: Effort & Inspection: normal respiratory effort Auscultation: clear to auscultation bilaterally Cardio: Rate: regular rate Rhythm: regular rhythm Peripheral pulses: P eripheral pulses 2+ throughout GI: Inspection: Yes normal to inspection Palpation (GI): Soft to palpation and nontender Auscultation: normal bowel sounds Back/Spine/Pelvis: Thoracic/Lumbar Spine: thoracic and lumbar spine normal to inspection Skin: General skin exam: no rashes or lesions noted Neuro: General: patient oriented x3 and moves all extremities Cognition (Neuro): normal cognition Extrem: Other: this wound is on the sole of the foot. There is no surrounding erythema, warmth, fluctuance or drainage. There is some tenderness over the anterior aspect of the left crews and patient reports some discomfort over the posterior calf. Her compartments are soft and compressible. There is no erythema, warmth, swelling noted of the calf. There is distal pulses palpated. Normal sensation. General: Yes normal to inspection Course Course Course Narrative: 1729-Patient now complaints of right sided abdominal pain which she has had intermittently for years. She had a normal CT A/P with a visualized appendix on 07/03. She is s/p total eva. She is having normal BMs. I doubt acute appendicits, SBO, diverticulitis. I do not think a CT of the abdomen/pelvis is warranted. I will give her a PPI, GI cocktail. She is pending a repeat troponin. This is not c/w with ACS. Her additional labs are chronically elevated, Her CXR is normal. Her foot x-ray shows no signs of osteo. exam of the wound on her foot is not c/w with osteo or cellulitis. She can follow-up outpatient with wound care. Her US shows no DVT. Her exam is not c/w with a DVT. Anticipate discharge home. Reevaluation(s) Reevaluation #1: 1730-Sign out to Urszlua SIGALA pending repeat trop. 1821--repeat troponin without significant rise, mi unlikely. Patient is safe for discharge home at this time Results discussed with patient including worrisome signs and symptoms and strict return precautions, and when to return to the emergency department. They verbalized understanding and feel safe for discharge at this time. Medications Administered Discontinued Medications Generic Name Dose Route Start Last Admin Trade Name Momoq PRN Reason Stop Dose Admin Al Hydroxide/Mg Hydroxide 30 ml 07/11/24 17:18 07/11/24 17:44 Magnesium Hydrox/Alum Hydrox 30 Ml Oral.Susp PO 07/11/24 17:19 30 ml ONCE ONE Administration Diphenhydramine HCl 12.5 mg 07/11/24 17:18 07/11/24 17:43 Diphenhydramine Hcl 50 Mg/Ml Vial IVPUSH 07/11/24 17:19 12.5 mg ONCE ONE Administration Famotidine 20 mg 07/11/24 17:18 07/11/24 17:43 Famotidine/Pf 20 Mg/2 Ml Vial IVPUSH 07/11/24 17:19 20 mg ONCE ONE Administration Hydromorphone HCl 0.5 mg 07/11/24 14:23 07/11/24 14:28 Hydromorphone Hcl 0.5 Mg/0.5 Ml Syringe IVPUSH 07/11/24 14:24 0.5 mg ONCE ONE Administration Protocol Lidocaine HCl 15 ml 07/11/24 17:18 07/11/24 17:44 Lidocaine Hcl Viscous 2 % 15 Ml Solution MUCOUS MEM 07/11/24 17:19 15 ml ONCE ONE Administration Medical Decision Making Medical Decision Making MDM Narrative: Patient is a 33-year-old female with history of end-stage renal disease on dialysis Sunday/ but refuses to go on Saturdays, numerous hospital admissions secondary to nonadherence with her hemodialysis,?diabetes, diabetic retinopathy with associated blindness, peripheral vascular disease now status post bilateral trans metatarsal amputation, poorly controlled hypertension secondary to nonadherence with her medications, chronic respiratory failure on supplemental oxygen at home, heart failure with reduced ejection fraction, substance abuse, mood disorder, chronic pain , chronic chest pain , presents with 3 days of chest pain that originates under bilateral breasts and radiates to back. She is reporting severe pain of her left lower leg and foot due to chronic wound (3 years). Patient states she has been taking her HTN medications, and completed dialysis yesterday (07/10). She denies nausea, vomiting, abdominal pain. Vital signs reveal elevated BP of 187/91 otherwise unremarkable. Patient is nontoxic appearing. On physical exam patient has significant pain with palpation over left anterior tibialis without erythema or edema. There is an approximately [id number] wound on the plantar surface of the L foot that is chronic (3 years). Lungs are CTA. EKG does not reveal ST elevation but there are ST depressions in V1-V3 that are present on previous EKG's. Troponin is elevated at 57.1, however, on chart review Troponin level has trended down from her last visit of 74.8. will obtain repeat troponin within 3 hours (17:32) to ensure downward trend. BNP is elevated at 3701 however on chart review patient has a chronically elevated BNP due to being dialysis patient. ESR is elevated at 53, CRP elevated at 0.65 but upon chart review these inflammatory markers are chronically elevated. lipase WNL less concern for pancreatitis. Beta hydroxybutyrate, anion gap WNL, serum glucose 110, less likely to be DKA. L foot XR does not show any evidence of osteomyelitis or subcutaneous emphysema making osteomyelitis/gas gangrene less likely. lack of edema/ erythema over chronic left foot wound does not show evidence cellulitis. CXR does not show any acute processes. US left lower extremity does not show evidence of DVT. See course of care for additional Differential Diagnosis Differential Diagnoses: The differential diagnosis associated with the presentation includes ACS-less likely with 2 unchanged troponin, nonischemic EKG and HPI atypical for ACS DKA DVT PE-PERC 0 Pancreatitis Electrolyte abnormality Osteomyelitis Cellulitis-exam not c/w with same Admission/Observation Consideration of admission/observation: Escalation of care including admission/observation considered Lab Data MDM Lab Attestation statement: I reviewed the patient's lab results. 07/11/24 14:32 07/11/24 14:32 Labs: Lab Results 07/11/24 07/11/24 07/11/24 Range/Units 14:32 14:33 17:42 WBC 4.8 (4.8-10.8) X10*3/uL RBC 3.50 L (4.20-5.50) X10*6/uL Hgb 10.2 L (12.0-16.0) g/dl Hct 31.1 L (37.0-47.0) % MCV 88.9 (80.0-98.0) fL MCH 29.1 (27.0-33.0) pg MCHC 32.8 (31.0-35.0) g/dl RDW 15.8 (11.0-16.0) % Plt Count 95 L (160-400) X10*3/uL MPV 11.6 (9.4-12.3) fL Immature Gran % (Auto) 0.2 (0.0-0.4) % Neut % (Auto) 65.1 (45-73) % Lymph % (Auto) 15.5 L (20-40) % [place] % (Auto) 15.3 H (2-11) % Eos % (Auto) 3.5 (0-4) % Baso % (Auto) 0.4 (0-2) % Lymph # (Auto) 0.8 L (1.2-4.9) X10*3/uL [place] # (Auto) 0.7 (0.1-1.2) X10*3/uL Eos # (Auto) 0.2 (0.0-0.4) X10*3/uL Baso # (Auto) 0.0 (0.0-0.2) X10*3/uL Abs Immat Gran (auto) 0.01 (0.00-0.03) X10*3/uL Absolute Neuts (auto) 3.2 (2.0-8.3) x10*3/uL Absolute Nucleated RBC 0.000 (0.0-0.012) X10*3/uL Nucleated RBC % (auto) 0.0 (0.0-0.2) /100WBC ESR 53 H (0-20) MM/HR Sodium 136 (135-145) mmol/L Potassium 4.8 (3.3-5.1) mmol/L Chloride 97 (96-108) mmol/L Carbon Dioxide 23 (22-29) mmol/L Anion Gap 21 H (12-20) BUN 66 H (9-16) mg/dL Creatinine 6.53 H* (0.5-1.4) mg/dL Estim Creat Clear Calc 13.8 Estimated GFR 7 Random Glucose 110 (60-115) mg/dL Calcium 9.0 D (8.4-10.2) mg/dL Magnesium 2.2 (1.6-2.6) mg/dL Total Bilirubin 0.7 (0.0-1.0) mg/dL AST 53 H (5-31) U/L ALT < 6 (0-31) U/L Alkaline Phosphatase 183 H (39-117) U/L Troponin I High Sens 57.1 H* 72.9 H* (<3.5-17.0) ng/L C-Reactive Protein 0.65 H (< or = 0.50) mg/dL B-Natriuretic Peptide 3701 H (<100) pg/mL Total Protein 8.0 (6.5-8.0) g/dL Albumin 3.7 (3.5-5.0) g/dL Lipase 52 (8-78) U/L Beta-Hydroxybutyrate 0.07 (0.02-0.27) mmol/L Beta HCG, Quant < 2 mIU/mL Independent Interpretation I performed an independent interpretation of an: EKG and Ultrasound Interpretation: I independently reviewed the ultrasound/CXR/foot x-ray agree with the radiology report and agree with the rad report I independently reviewed the EKG which shows normal sinus rhythm with a rate of 91, normal DC, normal QRS, normal QT, right bundle branch block with ST depressions in leads V1, V2 and V3 unchanged from previous Radiology Impression Discussion of test interpretation with radiology: I have reviewed the radiologist's reading. Radiologist Impression: [address] [address] Ultrasound Report Signed Patient: Shereen Taylor MR#: [id number] : 1990 Acct:[id number] Age/Sex: 33 / F ADM Date: 07/11/24 Loc: HO.ED Attending Dr: Ordering Physician: Tesha Moncada NP Date of Service: 07/11/24 Procedure(s): US venous duplex LE LT Accession Number(s): [id number] cc: Tesha Moncada NP; Genevieve Gtz MD~ EXAMINATION: US TRIPLEX LOWER EXTREMITY, LEFT CLINICAL INFORMATION: Calf pain, rule out DVT. COMPARISON: 11/11/2023. TECHNIQUE: Color-flow triplex imaging with spectral analysis and compression Doppler were performed on the left lower extremity. FINDINGS: Respiratory variation, normal compression and augmented flow are noted throughout the left lower extremity. The visualized common femoral vein, superficial femoral vein, profunda femoral vein, popliteal vein and midcalf peroneal and posterior tibial venous segments show no evidence of deep venous thrombosis. There is no Underwood's cyst. There are reactive appearing lymph nodes in the left groin. US/US venous duplex LE LT IMPRESSION: No evidence of deep venous thrombosis involving the left lower extremity. [place] [id number] XRay Report Signed Patient: Shereen Taylor MR#: [id number] : 1990 Acct:[id number] Age/Sex: 33 / F ADM Date: 07/11/24 Loc: .ED Attending Dr: Ordering Physician: Vane Newman NP Date of Service: 07/11/24 Procedure(s): XR foot LT min 3V Accession Number(s): [id number] cc: Genevieve Gtz MD; Vane Newman NP~ EXAMINATION: XR FOOT, LEFT CLINICAL INFORMATION: chronic wound, ? osteo COMPARISON: None available. TECHNIQUE: AP, lateral, and oblique views of the left foot. FINDINGS: There has been prior amputation of the digits at the mid to distal metatarsal levels. No fracture, dislocation, or suspicious bone lesion. No region of osteopenia or permeative bony change to suggest radiographic changes of osteomyelitis. There is a pes planus deformity with Charcot changes of the midfoot. Soft tissues demonstrate an ulceration in the mid plantar region. There are diffuse vascular calcifications. No soft tissue emphysema. XR/XR foot LT min 3V IMPRESSION: 1. Ulceration mid plantar region without subcutaneous emphysema. 2. No radiographic evidence of osteomyelitis. 3. Charcot changes of the midfoot. Pes planus. 4. Amputation of the digits at the mid to distal metatarsal levels. Launch?Image [address] [address] XRay Report Signed Patient: Shereen Taylor MR#: [id number] : 1990 Acct:[id number] Age/Sex: 33 / F ADM Date: 07/11/24 Loc: HO.ED Attending Dr: Ordering Physician: Tesha Moncada NP Date of Service: 07/11/24 Procedure(s): XR chest 1V Accession Number(s): [id number] cc: Tesha Moncada NP; Genevieve Gtz MD~ EXAMINATION: XR CHEST CLINICAL INFORMATION: cp COMPARISON: None available. TECHNIQUE: Frontal view of the chest was obtained. FINDINGS: Right-sided tunneled dialysis catheter in place with tip in the right atrium. There is moderate cardiomegaly. Mediastinal hilar contours appear normal. The lungs are clear bilaterally. No pneumothorax or effusion. No focal osseous or soft tissue abnormality. XR/XR chest 1V IMPRESSION: 1. Dialysis catheter in good position. 2. Cardiomegaly. 3. No active lung disease. Electronically signed by: Damon Alnais MD 07/11/2024 03:47 PM EDT Independent Historian Clinical information obtained from an independent historian. History obtained from or confirmed by: EMS External Record Review External record reviewed: Inpatient record, Office record and Outpatient record Chronic Conditions Patient?s care impacted by: Diabetes, Hypertension and Other ( ESRD) Discharge Plan Discharge Clinical Impression: Chest pain, Wound of foot Patient Disposition: Home, Self-Care Instructions: Chest Pain (ED), Chronic Wounds (ED) Additional Instructions: Your blood work is reassuring. Your x-ray of your chest is normal. Your x-ray of your foot shows no signs of infection. You should follow up outpatient with wound care for the foot wound that you have. Please follow-up with your outpatient providers Return for worsening symptoms Prescriptions: No Action carvedilol 12.5 mg Tablet 12.5 mg PO BID 90 Days Qty: 180 0RF Protocol: Hold for SBP/HR < HOLD for SBP < : 90 HOLD for HR < : 60 hydralazine 50 mg Tablet 50 mg PO TID 90 Days Qty: 270 0RF Protocol: Hold for SBP< HOLD for SBP < : 90 acetaminophen 325 mg tablet 650 mg PO Q4H PRN (Reason: mild pain) oxycodone 5 mg tablet 5 mg PO Q8H PRN (Reason: Pain) cefazolin 2 gram recon soln 2 g IV ./ and Sun Rx Instructions: 2 g cefazolin IV Sunday and Sunday post hemodialysis, end date July 11 lidocaine 5 % adhesive patch,medicated 1 patch topical DAILY PRN (Reason: Pain) nitroglycerin 0.4 mg tablet, sublingual 0.4 mg sublingual DIRECTED PRN (Reason: Angina) albuterol sulfate [Ventolin HFA] 90 mcg/actuation HFA aerosol inhaler 2 puff inhalation Q6H PRN (Reason: wheezing) calcium carbonate [Tums] 200 mg calcium (500 mg) Tablet,Chewable 200 mg PO TIDWM ondansetron 4 mg tablet,disintegrating 4 mg PO Q8H PRN (Reason: nausea and vomiting) Qty: 12 0RF Referrals: [facility] [place] Wound Care Management [Provider Group] - 1 week Genevieve Gtz MD [Primary Care Provider] - 1 week Print Language: Slovenian
[2024-07-11] MEDS: HYDROmorphone HCl 0.5 MG/0.5 ML SYRINGE IVPUSH (14:28)
[2024-07-11 14:43] LABS: MANUAL DIFF FLAG NO
[2024-07-11 14:47] LABS: Basophils Percent Auto 0.4 % (0-2); Eosinophils Absolute Auto 0.2 X10*3/uL (0.0-0.4); Eosinophils Percent Auto 3.5 % (0-4); Hematocrit 31.1 % (37.0-47.0); Hemoglobin 10.2 g/dl (12.0-16.0); Imm Gran Abs Auto 0.01 X10*3/uL (0.00-0.03); Imm Gran Pct Auto 0.2 % (0.0-0.4); Lymphocytes Absolute Auto 0.8 X10*3/uL (1.2-4.9); Lymphocytes Percent Auto 15.5 % (20-40); Mean Corpuscular HGB Conc 32.8 g/dl (31.0-35.0); Mean Corpuscular Hemoglobin 29.1 pg (27.0-33.0); Mean Corpuscular Volume 88.9 fL (80.0-98.0); Mean Platelet Volume 11.6 fL (9.4-12.3); Monocytes Absolute Auto 0.7 X10*3/uL (0.1-1.2); Monocytes Percent Auto 15.3 % (2-11); Neutrophils Absolute Auto 3.2 x10*3/uL (2.0-8.3); Neutrophils Percent Auto 65.1 % (45-73); Platelet Count 95 X10*3/uL (160-400); Red Cell Distribution Width 15.8 % (11.0-16.0); White Blood Count 4.8 X10*3/uL (4.8-10.8)
[2024-07-11 14:58] LABS: C Reactive Protein 0.65 mg/dL (< or = 0.50)
[2024-07-11 14:59] LABS: Beta-Hydroxybutyrate 0.07 mmol/L (0.02-0.27)
[2024-07-11 15:04] LABS: Alanine Aminotransferase < 6 U/L (0-31); Albumin Level 3.7 g/dL (3.5-5.0); Anion Gap 21 (12-20); Aspartate Amino Transferase 53 U/L (5-31); B Type Natriuretic Peptide 3701 pg/mL (<100); Bilirubin Total 0.7 mg/dL (0.0-1.0); Blood Urea Nitrogen 66 mg/dL (9-16); Carbon Dioxide 23 mmol/L (22-29); Chloride 97 mmol/L (96-108); Creatinine Clr Calc Pharmacy 13.8; Estimated Glomerular Filt Rate 7; Glucose Random 110 mg/dL (60-115); Lipase 52 U/L (8-78); Magnesium 2.2 mg/dL (1.6-2.6); Potassium 4.8 mmol/L (3.3-5.1); Sodium 136 mmol/L (135-145)
[2024-07-11 15:08] LABS: HCG Quantitative < 2 mIU/mL
[2024-07-11 15:10] LABS: Troponin-I High Sensitivity 57.1 ng/L (<3.5-17.0)
[2024-07-11 15:28] LABS: Erythrocyte Sedimentation Rate 53 MM/HR (0-20)
[2024-07-11 15:30] LABS: Alkaline Phosphatase 183 U/L (39-117)
[2024-07-11] MEDS: diphenhydrAMINE HCL 50 MG/ML VIAL 12.5 MG IVPUSH (17:43)
[2024-07-11] MEDS: Famotidine/PF 20 MG/2 ML VIAL IVPUSH (17:43)
[2024-07-11] MEDS: Magnesium Hydrox/Alum Hydrox 30 ML ORAL.SUSP PO (17:44)
[2024-07-11] MEDS: Lidocaine HCl Viscous 2 % 15 ML SOLUTION MUCOUS MEM (17:44)
[2024-07-11 18:17] LABS: Troponin-I High Sensitivity 72.9 ng/L (<3.5-17.0)
== END 2024-07-11 21:28 | disposition home or self-care (01) ==
PROVIDERS: Nurse Practitioner Family; Registered Nurse Emergency; Emergency Provider Emergency Medicine Emergency Medical Services; PCP Student in an Organized Health Care Education/Training Program
DX: L08.9 Local infection of the skin and subcutaneous tissue, unspecified (principal); R07.89 Other chest pain; R10.2 Pelvic and perineal pain; M79.672 Pain in left foot; I12.0 Hypertensive chronic kidney disease with stage 5 chronic kidney disease or end stage renal disease; N18.6 End stage renal disease; R60.0 Localized edema; R06.02 Shortness of breath; Z79.899 Other long term (current) drug therapy
CPT/HCPCS: 36415; 71045; 73630; 80053; 82010; 83690; 83735; 83880; 84484; 84702; 85025; 85652; 86140; 93005; 93971; 96374; 96375; 99284; 99285; J1171; J1200; J1308

== ENCOUNTER → 2024-07-11 12:59 | Outpatient (BNV) | payer OTHER, SELFPAY | PROVIDERS: Emergency Provider Emergency Medicine Emergency Medical Services; PCP Student in an Organized Health Care Education/Training Program; Visit Provider Internal Medicine Cardiovascular Disease | DX: I45.10 Unspecified right bundle-branch block (principal) | CPT/HCPCS: 93010 ==

== ENCOUNTER → 2024-07-11 14:15 | Outpatient (BNV) | payer OTHER, SELFPAY | PROVIDERS: Emergency Provider Emergency Medicine Emergency Medical Services; PCP Student in an Organized Health Care Education/Training Program; Visit Provider Radiology Diagnostic Radiology | DX: M79.662 Pain in left lower leg (principal); I51.7 Cardiomegaly; Z49.01 Encounter for fitting and adjustment of extracorporeal dialysis catheter; L97.421 Non-pressure chronic ulcer of left heel and midfoot limited to breakdown of skin; M21.42 Flat foot [pes planus] (acquired), left foot | CPT/HCPCS: 71045; 73630; 93971 ==

== ENCOUNTER 2024-07-12 15:47 | Emergency (ER) | payer OTHER, SELFPAY ==
--- NOTE | ~2024-07-12 | CT_ITS ---
CLINICAL HISTORY: midline tenderness CT lumbar spine without contrast Comparison: None Findings: Normal vertebral body alignment. No acute fractures or dislocations. Mild disc height loss and endplate changes at L4-5. Visualized abdominal contents unremarkable. Extensive arterial vascular calcification. IMPRESSION: No acute fracture deformity of the lumbar spine. Extensive arterial vascular calcification suggesting diabetes mellitus. This document has been electronically signed by: Jorge Paz MD on 07/12/2024 20:27:19
--- NOTE | ~2024-07-12 | CT_ITS ---
CLINICAL HISTORY: Midline neck tenderness CT cervical spine without contrast Comparison: None Findings: Vertebral alignment is within normal limits. No acute cervical fracture deformity. No significant degenerative change. Congenital incomplete fusion of the posterior arch of C1. There is a small left mastoid effusion. Soft tissues of the neck are normal. No consolidation or effusion at the lung apices. IMPRESSION: 1. No cervical spine fracture deformity. 2. Small left mastoid effusion. This document has been electronically signed by: Jorge Paz MD on 07/12/2024 20:25:35
--- NOTE | ~2024-07-12 | CT_ITS ---
CLINICAL HISTORY: fall, head strike CT head without contrast Comparison: CT/SR - CT HEAD/BRAIN WO IV CON - 06/25/24 19:08 EDT Findings: No intracranial hemorrhage, mass effect or midline shift. Focal area of encephalomalacia in the right cerebellar hemisphere, unchanged from prior. No cerebral atrophy. The visualized paranasal sinuses and mastoid air cells are normal. 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 Unchanged left retinal hemorrhage. There is no acute fracture. IMPRESSION: 1. No acute intracranial findings. This document has been electronically signed by: Jorge Paz MD on 07/12/2024 21:28:37
--- NOTE | ~2024-07-12 | CT_ITS ---
CLINICAL HISTORY: midline tenderness CT thoracic spine without contrast Comparison: CT/SR - CT ANGIO CHEST AORTA - 07/08/24 17:32 EDT Findings: Vertebral alignment is within normal limits. No acute fractures or dislocations. No significant degenerative change. No lytic or blastic bone lesions. Visualized lungs and mediastinum are unremarkable. Upper abdominal contents unremarkable. Extensive arterial vascular calcifications. There is a large bore central venous catheter via a right internal jugular vein approach terminating at the right cavoatrial junction. Moderate cardiomegaly present. IMPRESSION: No acute findings. This document has been electronically signed by: Jorge Paz MD on 07/12/2024 20:33:53
[2024-07-12 16:11] VITALS: BP 160/100; BP 167/71; PULSE 78; PULSE 80; RESP 16; TEMP 36.7; O2SAT 100; O2SAT 93; BMI 24.2
--- OUTSIDE RECORDS SUMMARY | 2024-07-12 16:31 | XMS_ITS | Encounter Summary ---
Author Organization [employer] Address [address] [facility] 7t [place] [address] Care Team Providers Care Electrode Cleaning Machine Operator Name Role Phone Genevieve Gtz MD Primary Care Pro vider Reason for Visit * Reason Onset Date Comments Med Refill 12/05/2023 Encounter Details Date Type Department Care Team ([facility] st Contact Info) Description 12/05/2023 Telephone [facility]ICINE [address] [place], [place] [phone] Genevieve Gtz MD [address] [place], [place] [phone] Med Refill Social History Tobacco Use Types [...] release tablet To be sent to: [facility]/pharmacy #[id number] [place] [address] documented in this encounter Plan of Treatment Upcoming Encounters Date Type Department Care Team (Late st Contact Info) Description 08/06/2024 2:15 PM EDT Clinical Support [facility] MED & PEDS 505 [place] [address] Paola Thurston RN 505 [place] [address] documented as of this encounter Goals Goal [...] documented as of this encounter Care Teams Electrode Cleaning Machine Operator Relationship Specialty Start Date End Date Genevieve Gtz MD [address] [place] [address] PCP - General Internal Medicine 10/12/22 documented as of this encounter
--- OUTSIDE RECORDS SUMMARY | 2024-07-12 16:31 | XMS_ITS | Encounter Summary ---
Author Organization [email or web address] Address [address] [place] [address] 7t [place] [address] Care Team Providers Care Change Person Name Role Phone Carolina Hsu Primary Care Provider [phone] Genevieve Gtz MD Primary Care Pro vider Encounter Details Date Type Department Care Team ([facility] Contact Info) Description 09/11/2022 Abstract [facility] MEDICINE [address] [place] [address] Carolina Hsu FNP [address] [place] [address] Dept [place] [address] Social History Tobacco Use Types Packs/Day Years [...] Description 08/06/2024 2:15 PM EDT Clinical Support [facility] MED & PEDS 505 [place] [address] Paola Thurston, KIRIT 505 [place] [address] documented as of this encounter Visit Diagnoses Not on filedocumented in this encounter Care Teams Change Person Relationship Specialty Start Date End Date Carolina Hsu FNP PCP - General Family Medicine 01/16/22 10/11/22 Genevieve Gtz MD [address] [place] [phone] PCP - General Internal Medicine 10/12/22 documented as of this encounter
--- OUTSIDE RECORDS SUMMARY | 2024-07-12 16:31 | XMS_ITS | Encounter Summary ---
Author Organization [employer] Address [address] [facility] 7t [place] [address] Care Team Providers Care Weatherization Crew Leader Name Role Phone Genevieve Gtz MD Primary Care Pro vider Reason for Visit * Reason Comments Med Change Request Encounter Details Date Type Department Care Team ([facility] st Contact Info) Description 03/15/2023 Refill [facility]S [address] [place], [place] [phone] Genevieve Gtz MD 230 [place], [place] [phone] Benign essential hypertension Social History Tobacco Use [...] Description 08/06/2024 2:15 PM EDT Clinical Support [facility] MED & PEDS 505 [place] [address] Paola Thurston, KIRIT 505 [place] [address] documented as of this encounter Visit Diagnoses Diagnosis Benign essential hypertension Essential hypertension, benign documented in this encounter Additional Health Concerns Assessment Noted Time PHQ-9 Depression Total Score: 0 10/13/19 23 2:37 PM EDT documented as of this encounter Care Teams Weatherization Crew Leader Relationship Specialty Start Date End Date Genevieve Gtz MD [address] [place] [address] PCP - General Internal Medicine 10/12/22 documented as of this encounter
--- OUTSIDE RECORDS SUMMARY | 2024-07-12 16:31 | XMS_ITS | Encounter Summary ---
Author Organization [employer] Address [address] [facility] 7t [place] [address] Care Team Providers Care Pressurised Container Filler Name Role Phone Genevieve Gtz MD Primary Care Pro vider Encounter Details Date Type Department Care Team (Late st Contact Info) Description 01/21/2024 Telephone [facility] MEDICINE 230 [place], [place] [phone] Genevieve Gtz MD 230 [place], [place] [phone] Social History Tobacco Use Types Packs/Day Years [...] Oxycodone 5mg , pt requests a callback [phone] documented in this encounter Plan of Treatment Upcoming Encounters Date Type Department Care Team (Late st Contact Info) Description 08/06/2024 2:15 PM EDT Clinical Support [facility] MED & PEDS 505 [place] [address] Paola Thurston, KIRIT 505 [place] [address] documented as of this encounter Goals Goal [...] documented as of this encounter Care Teams Pressurised Container Filler Relationship Specialty Start Date End Date Genevieve Gtz MD [address] [place] [address] PCP - General Internal Medicine 10/12/22 documented as of this encounter
--- OUTSIDE RECORDS SUMMARY | 2024-07-12 16:31 | XMS_ITS | Encounter Summary ---
Author Organization [employer] Address [address] [facility] 7t [place] [address] Care Team Providers Care Surgical Dressing Maker Name Role Phone Genevieve Gtz MD Primary Care Pro vider Encounter Details Date Type Department Care Team (Late st Contact Info) Description 07/09/2024 Results Follow-Up [facility] MEDICINE 230 [place], [place] [phone] Genevieve Gtz MD 230 [place], [place] [phone] High Sensitivity Troponin I, CTA Abdomen aorta runoff Social History Tobacco Use Types Packs/Day Years [...] t he electric, gas, oil or water [employer] threatened to shut off services in your [...] as of this encounter Miscellaneous Notes * Result Encounter Note - Genevieve Casillas MD - 07/09/2024 4:16 PM EDT Labs done by outside provider * Result Encounter Note - Genevieve Casillas MD - 07/09/2024 4:15 PM EDT Labs done by outside provider documented in this encounter Plan of Treatment Upcoming Encounters Date Type Department Care Team (Late st Contact Info) Description 08/06/2024 2:15 PM EDT Clinical Support [facility] MED & PEDS 505 [place] [address] Paola Thurston RN 505 [place] [address] documented as of this encounter Goals Goal [...] documented as of this encounter Care Teams Surgical Dressing Maker Relationship Specialty Start Date End Date Genevieve Gtz MD [address] [place] [address] PCP - General Internal Medicine 10/12/22 documented as of this encounter
--- OUTSIDE RECORDS SUMMARY | 2024-07-12 16:31 | XMS_ITS | Clinical Summary ---
Author Organization [facility] Address [address] [place] [address] Care Team Providers Care Bail Agent Name Role Phone Betty Nuegnt MD Primary Care Provider [phone] Surgical History Surgery Date Site/Laterality Comments SECTION [...] age to complete this topic Care Teams Bail Agent Relationship Specialty Start Date End Date Betty Nugent MD [address] [place] PCP - General Internal Medicine 01/10/18
--- OUTSIDE RECORDS SUMMARY | 2024-07-12 16:31 | XMS_ITS | Encounter Summary ---
Author Organization [employer] Address [address] [place] [address] 7t [place] [address] Care Team Providers Care Corporate Sales Manager Name Role Phone Genevieve Gtz MD Primary Care Pro vider Reason for Visit * Reason Onset Date Comments Med Refill 11/27/2022 Encounter Details Date Type Department Care Team (Late st Contact Info) Description 11/27/2022 Telephone [facility] MEDICINE 230 [place], [place] [phone] Genevieve Gtz MD 230 [place], [place] [phone] Med Refill Social History Tobacco Use Types [...] medication oxycodone 5 mg. Please send to [facility]/pharmacy #[id number] - [place], [place] - [address] [place] [address] Cool documented in this encounter Plan of Treatment Upcoming Encounters Date Type Department Care Team (Late st Contact Info) Description 08/06/2024 2:15 PM EDT Clinical Support [facility] MED & PEDS 505 [place] [address] Paola Thurston, RN 505 [place], [place] documented as of this encounter Visit Diagnoses Not on filedocumented in this encounter Additional Health Concerns Assessment Noted Time PHQ-9 Depression Total Score: 0 10/13/19 2:37 PM EDT documented as of this encounter Care Teams Corporate Sales Manager Relationship Specialty Start Date End Date Genevieve Gtz MD [address] [place] [address] PCP - General Internal Medicine 10/12/22 documented as of this encounter
--- OUTSIDE RECORDS SUMMARY | 2024-07-12 16:31 | XMS_ITS | Encounter Summary ---
Author Organization [employer] Address [address] [facility] 7t [place] [address] Care Team Providers Care Claims Director Name Role Phone Genevieve Gtz MD Primary Care Pro vider Reason for Visit * Reason Onset Date Comments Med Refill 06/20/2024 Encounter Details Date Type Department Care Team ([facility] st Contact Info) Description 06/20/2024 Telephone [facility] MEDICINE 230 [place], [place] [phone] Genevieve Gtz MD 230 [place], [place] [phone] Med Refill Social History Tobacco Use Types [...] immediate release tablet To be sent to: [facility]/pharmacy #[id number] [place] [address] documented in this encounter Plan of Treatment Upcoming Encounters Date Type Department Care Team (Late st Contact Info) Description 08/06/2024 2:15 PM EDT Clinical Support [facility] MED & PEDS 505 [place] [address] Paola Thurston RN 505 [place] [address] documented as of this encounter Goals Goal [...] as of this encounter Care Teams Claims Director Relationship Specialty Start Date End Date Genevieve Gtz MD [address] [place] [phone] PCP - General Internal Medicine 10/12/22 documented as of this encounter
--- OUTSIDE RECORDS SUMMARY | 2024-07-12 16:31 | XMS_ITS | Encounter Summary ---
Author Organization [employer] Address [address] [facility] 7t [place] [address] Care Team Providers Care Case Supervisor Name Role Phone Genevieve Gtz MD Primary Care Pro vider Reason for Visit * Reason Onset Date Comments Med Refill 01/08/2023 Encounter Details Date Type Department Care Team (Late st Contact Info) Description 01/08/2023 Telephone [facility] 230 [place], [place] [phone] Genevieve Gtz MD 230 [place], [place] [phone] Med Refill Social History Tobacco Use Types [...] Upcoming Encounters Date Type Department Care Team ([facility] st Contact Info) Description 08/06/2024 2:15 PM EDT Clinical Support [facility] MED & PEDS 505 [place] [address] Paola Thurston, KIRIT 505 [place] [address] documented as of this encounter Visit Diagnoses Not on filedocumented in this encounter Additional Health Concerns Assessment Noted Time PHQ-9 Depression Total Score: 0 10/13/19 23 2:37 PM EDT documented as of this encounter Care Teams Case Supervisor Relationship Specialty Start Date End Date Genevieve Gtz MD [address] [place] [address] PCP - General Internal Medicine 10/12/22 documented as of this encounter
--- OUTSIDE RECORDS SUMMARY | 2024-07-12 16:31 | XMS_ITS | Encounter Summary ---
Author Organization [employer] Address [address] [facility] 7t [place] [address] Care Team Providers Care Personnel Coordinator Name Role Phone Genevieve Gtz MD Primary Care Pro vider Reason for Visit * Reason Onset Date Comments Med Refill 12/19/2023 Encounter Details Date Type Department Care Team ([facility] st Contact Info) Description 12/19/2023 Telephone [facility] MEDICINE 230 [place], [place] [phone] Genevieve Gtz MD 230 [place], [place] [phone] Med Refill Social History Tobacco Use Types [...] immediate release tablet To be sent to: [facility]/pharmacy #[address] [place] [address] documented in this encounter Plan of Treatment Upcoming Encounters Date Type Department Care Team (Late st Contact Info) Description 08/06/2024 2:15 PM EDT Clinical Support [facility] CH[facility] MED & PEDS 505 [place] [address] Paola Thurston RN 505 [place] [address] documented as of this encounter Goals Goal [...] documented as of this encounter Care Teams Personnel Coordinator Relationship Specialty Start Date End Date Genevieve Gtz MD [address] [place] [phone] PCP - General Internal Medicine 10/12/22 documented as of this encounter
--- OUTSIDE RECORDS SUMMARY | 2024-07-12 16:31 | XMS_ITS | Encounter Summary ---
Author Organization [employer] Address [address] [place] [address] 7t [place] [address] Care Team Providers Care Roller Maker Name Role Phone Genevieve Gtz MD Primary Care Pro vider Reason for Visit * Reason Onset Date Comments Med Refill 10/26/2022 Encounter Details Date Type Department Care Team (Late st Contact Info) Description 10/26/2022 Telephone [facility] MEDICINE 230 [place], [place] [phone] Genevieve Gtz MD 230 [place], [place] [phone] Med Refill Social History Tobacco Use Types [...] medication oxycodone 5 mg. Please send to [facility]/pharmacy #[id number] - [place], [place] - [address] [place] [address] Cool documented in this encounter Plan of Treatment Upcoming Encounters Date Type Department Care Team (Late st Contact Info) Description 08/06/2024 2:15 PM EDT Clinical Support [facility] CH[facility] MED & PEDS 505 [place] [address] Paola Thurston, RN 505 [place], [place] documented as of this encounter Visit Diagnoses Not on filedocumented in this encounter Additional Health Concerns Assessment Noted Time PHQ-9 Depression Total Score: 0 10/13/19 2:37 PM EDT documented as of this encounter Care Teams Roller Maker Relationship Specialty Start Date End Date Genevieve Gtz MD [address] [place] [address] PCP - General Internal Medicine 10/12/22 documented as of this encounter
--- OUTSIDE RECORDS SUMMARY | 2024-07-12 16:31 | XMS_ITS | Encounter Summary ---
Author Organization [employer] Address [address] [facility] 7t [place] [address] Care Team Providers Care Product Safety Tester Name Role Phone Genevieve Gtz MD Primary Care Pro vider Reason for Visit * Reason Onset Date Comments Hospital Follow-up 03/04/2024 Encounter Details Date Type Department Care Team (Late st Contact Info) Description 03/04/2024 Telephone [facility] MEDICINE 230 [place], [place] [phone] Genevieve Gtz MD 230 [place], [place] [phone] Hospital Follow-up Social History Tobacco Use Types [...] from pt requesting a HDF appt. Hospital: [facility] Date of admission: 02/21/2024 Discharge date: 02/01/2025 Diagnosed: Oxygen , Infection Dialysis tube *Send message to [place] Clinical Care Coordinators documented in this encounter Plan of Treatment Upcoming Encounters Date Type Department Care Team (Late st Contact Info) Description 08/06/2024 2:15 PM EDT Clinical Support [facility] MED & PEDS 505 [place] [address] Paola Thurston RN 505 [place] [address] documented as of this encounter Goals Goal [...] as of this encounter Care Teams Product Safety Tester Relationship Specialty Start Date End Date Genevieve Gtz MD [address] [place] [address] PCP - General Internal Medicine 10/12/22 documented as of this encounter
--- OUTSIDE RECORDS SUMMARY | 2024-07-12 16:31 | XMS_ITS | Encounter Summary ---
Author Organization [employer] Address [address] [facility] 7t [place] [address] Care Team Providers Care Director [employer] Name Role Phone Genevieve Gtz MD Primary Care Pro vider Reason for Visit * Reason Onset Date Comments Med Refill 06/21/2023 Encounter Details Date Type Department Care Team (Late st Contact Info) Description 06/21/2023 Telephone [facility] MEDICINE 230 [place], [place] [phone] Genevieve Gtz MD 230 [place], [place] [phone] Med Refill Social History Tobacco Use Types [...] immediate release tablet To be sent to: [facility]/pharmacy #[id number] [place], [place] - [address] [place] [address] documented in this encounter Plan of Treatment Upcoming Encounters Date Type Department Care Team ([facility] st Contact Info) Description 08/06/2024 2:15 PM EDT Clinical Support [facility] MED & PEDS 505 [place] [address] Paola Thurston, RN 505 [place] [address] documented as of this encounter Goals Goal Patient Goal Type Associated Problems Recent Progress Patient-Stated? Author Blood Pressure < 140/90 Blood Pressure 129/75(2024 9:08 AM EST) No Jaime Chilel Hemoglobin A1c < 8 Result Component 5.7( 9:45 AM EST) No aJime Chilel documented as of this encounter Visit Diagnoses Not on filedocumented in this encounter Additional Health Concerns Assessment Noted Time PHQ-9 Depression Total Score: 0 10/13/19 2:37 PM EDT documented as of this encounter Care Teams Director [employer] Relationship Specialty Start Date End Date Genevieve Gtz MD [address] [place] [phone] PCP - General Internal Medicine 10/12/22 documented as of this encounter
--- OUTSIDE RECORDS SUMMARY | 2024-07-12 16:31 | XMS_ITS | Encounter Summary ---
Author Organization [employer] Address [address] [facility] 7t [place] [address] Care Team Providers Care Creative Producer Name Role Phone Genevieve Gtz MD Primary Care Pro vider Reason for Visit * Reason Onset Date Comments Call Back Request 06/15/2023 Encounter Details Date Type Department Care Team ([facility] st Contact Info) Description 06/15/2023 Telephone [facility] MEDICINE 230 [place], [place] [phone] Genevieve Gtz MD 230 [place], [place] [phone] Call Back Request Social History Tobacco Use [...] pt requesting a call back in regards HAT RENOVATOR medication. documented in this encounter Plan of Treatment Upcoming Encounters Date Type Department Care Team (Late st Contact Info) Description 08/06/2024 2:15 PM EDT Clinical Support [facility] MED & PEDS 505 [place] [address] Paola Thurston RN 505 [place] [address] documented as of this encounter Goals Goal [...] documented as of this encounter Care Teams Creative Producer Relationship Specialty Start Date End Date Genevieve Gtz MD [address] [place] [address] PCP - General Internal Medicine 10/12/22 documented as of this encounter
--- OUTSIDE RECORDS SUMMARY | 2024-07-12 16:31 | XMS_ITS | Clinical Summary ---
Author Organization [facility] Address [address] [address] Phone Care Team Providers Care Knuckler Name Role Phone Katlyn Manzanofer Primary Care [...] 07/08/2024 Treatment [facility] [place] [id number] [phone] Ed Carver MD End stage renal disease; Dependence on renal dialysis 07/03/2024 Orders Only [facility] [address] [phone] Ed Carver MD 07/01/2024 Treatment [facility] [address] [phone] Ed Carver MD End stage renal disease; Dependence on renal dialysis 06/19/2024 Treatment [facility] [place] [address] [address] Ed Carver MD End stage renal disease; Dependence on renal dialysis 06/17/2024 Treatment [facility] [address] [phone] Ed Carver MD End stage renal disease; Dependence on renal dialysis 06/14/2024 Treatment [facility] [address] [phone] Ed Carver MD End stage renal disease; Dependence on renal dialysis 06/07/2024 Treatment [facility] [address] [phone] Ed Carver MD End stage renal disease; Dependence on renal dialysis 05/22/2024 Treatment [facility] [address] [phone] Ed Carver MD End stage renal disease; Dependence on renal dialysis 05/13/2024 Treatment [facility] [address] [phone] Ed Carver MD End stage renal disease; Dependence on renal dialysis 05/08/2024 Treatment [facility] [address] [phone] Ed Carver MD End stage renal disease; Dependence on renal dialysis 05/03/2024 Treatment [facility] [address] [phone] Ed Carver MD End stage renal disease; Dependence on renal dialysis 04/22/2024 Treatment [facility] [address] [phone] Ed Carver MD 04/19/2024 Treatment [facility] [address] [phone] Ed Carver MD from Last 3 Months [...] EDT us Ed Carver MD LAB HISTORICA [id number] RESULTS Final Result Performing Organization Address [facility] de Phone Number [facility] [address] [place] [address] * (ABNORMAL) Kt/V Natural Log, URR (07/03/2024 [...] PM EDT us Ed Carver MD LAB [id number] RESULTS Edited Result - Final Performing Organization Address [facility] Co de Phone Number [facility] [address] [place] [address] * (ABNORMAL) Calcium Phosphorus Product, Adjusted (07/03/2024 [...] EDT us Ed Carver MD LAB HISTORICA [id number] RESULTS Final Result Performing Organization Address [facility] Co de Phone Number [facility] [address] [place] [address] * Hepatitis B Surface Ag w/Reflex Confirmation (07/03/2024 3:00 AM EDT) Only the most recent of3 resultswithin the time period is included. Hep B Surface Antigen Negative Negative [facility] 07/03/2024 3:00 AM EDT 07/04/2024 5:18 PM EDT us Ed Carver MD LAB BLOOD ORDERABLES Final Result Performing Organization Address [facility] Co de Phone Number [facility] [address] [place] [address] * BUN/CREATININE RATIO (07/03/2024 3:00 AM EDT) BUN/Creatinine Ratio 7.3 <=23.0 [facility] 07/03/2024 3:00 AM EDT 07/04/2024 5:18 PM EDT us Ed Carver MD LAB HISTORICA [id number] RESULTS Final Result Performing Organization Address [facility] Co de Phone Number [facility] [address] [place] [address] * (ABNORMAL) TSAT (07/03/2024 3:00 AM EDT) [...] ORDERABLES Final Result [facility] [address] [place] [address] * (ABNORMAL) CBC and Differential (07/03/2024 3:00 AM EDT) Only the most recent of3 resultswithin the time period is included. Pathologist [facility] DIFFERENTIAL MANUAL, 2 Not Indicated [facility] [place] [...] Address [facility] de Phone Number [facility] [address] [place] [address] * (ABNORMAL) ALT (07/03/2024 3:00 AM EDT) Only the most recent of3 resultswithin the time period is included. ALT (SGPT) <7(L) 10 - 49 U/L [facility] 07/03/2024 3:00 AM EDT 07/04/2024 5:18 PM EDT us Ed Carver MD LAB BLOOD ORDERABLES Final Result Performing Organization Address [facility] de Phone Number [facility] [address] [place] [address] * AST (07/03/2024 3:00 AM EDT) Only the most recent of3 resultswithin the time period is included. AST (SGOT) 25 <34 U/L [facility] 07/03/2024 3:00 AM EDT 07/04/2024 5:18 PM EDT us Ed Carver MD LAB BLOOD ORDERABLES Final Result Performing Organization Address [facility] de Phone Number [facility] [address] [place] [address] * Protein, total (07/03/2024 3:00 AM EDT) Only the most recent of3 resultswithin the time period is included. Total Protein 8.1 6.4 - 8.9 g/dL [facility] 07/03/2024 3:00 AM EDT 07/04/2024 5:18 PM EDT us Ed Carver MD LAB BLOOD ORDERABLES Final Result Performing Organization Address City/[facility]/ZIP Co de Phone Number [facility] [address] [place] [address] * (ABNORMAL) Alkaline phosphatase (07/03/2024 3:00 AM EDT) Only the most recent of3 resultswithin the time period is included. Alkaline Phosphatase 169(H) 46 - 116 U/L [facility] 07/03/2024 3:00 AM EDT 07/04/2024 5:18 PM EDT Ed Carver MD LAB BLOOD ORDERABLES Final Result Performing Organization Address [facility] de Phone Number [facility] [address] [place] [address] * Magnesium (07/03/2024 3:00 AM EDT) Only the most recent of3 resultswithin the time period is included. Magnesium 2.5 1.9 - 2.7 mg/dL [facility] 07/03/2024 3:00 AM EDT 07/04/2024 5:18 PM EDT Ed Carver MD LAB BLOOD ORDERABLES Final Result Performing Organization Address [facility] de Phone Number [facility] [address] [place] [address] * (ABNORMAL) Lactate dehydrogenase (07/03/2024 3:00 AM EDT) Only the most recent of3 resultswithin the time period is included. LDH 284(H) 120 - 246 U/L [facility] 07/03/2024 3:00 AM EDT 07/04/2024 5:18 PM EDT us Ed Carver MD LAB BLOOD ORDERABLES Final Result Performing Organization Address [facility] Co de Phone Number [facility] [address] [place] [address] * (ABNORMAL) Glucose, random (07/03/2024 3:00 AM EDT) Only the most recent of3 resultswithin the time period is included. Glucose 138(H) 70 - 99 mg/dL [facility] Comment: ADA guidelines outline the following fasting glucose ranges: Normal: ? <100 Prediabetes: 100-125 Diabetes: ? >125 07/03/2024 3:00 AM EDT 07/04/2024 5:18 PM EDT Ed Carver MD LAB BLOOD ORDERABLES Final Result Performing Organization Address City/[facility] Co de Phone Number [facility] [address] [place] [address] * Ferritin (07/03/2024 3:00 AM EDT) Only the most recent of3 resultswithin the time period is included. Ferritin 80 10 - 291 ng/mL [facility] 07/03/2024 3:00 AM EDT 07/04/2024 5:18 PM EDT Ed Carver MD LAB BLOOD ORDERABLES Final Result Performing Organization Address [facility] de Phone Number [facility] [address] [place] [address] * (ABNORMAL) Creatinine, serum (07/03/2024 3:00 AM EDT) Only the most recent of3 resultswithin the time period is included. Creatinine 9.98(H) 0.55 - 1.02 mg/dL [facility] 07/03/2024 3:00 AM EDT 07/04/2024 5:18 PM EDT us Ed Carver MD LAB BLOOD ORDERABLES Final Result Performing Organization Address [facility] Co de Phone Number [facility] [address] [place] [address] * Bilirubin, total (07/03/2024 3:00 AM EDT) Only the most recent of3 resultswithin the time period is included. Total Bilirubin 0.3 0.3 - 1.2 mg/dL [facility] 07/03/2024 3:00 AM EDT 07/04/2024 5:18 PM EDT us Ed Carver MD LAB BLOOD ORDERABLES Final Result Performing Organization Address [facility] de Phone Number [facility] [address] [place] [address] * (ABNORMAL) Electrolyte panel (07/03/2024 3:00 AM [...] BLOOD ORDERABLES Final Result Performing Organization Address [facility] de Phone Number [facility] [address] [place] [address] * Collection Date (06/21/2024 3:00 AM EDT) [...] EDT us Ed Carver MD LAB HISTORICA [id number] RESULTS Final Result Performing Organization Address [facility] de Phone Number [facility] [address] [place] [address] * Hemoglobin (06/21/2024 3:00 AM EDT) Only the most recent of5 resultswithin the time period is included. Hgb 11.6 11.2 - 15.7 g/dL [facility] Hemoglobin x 3 34.8 33.6 - 47.1 g/dL [facility] 06/21/2024 3:00 AM EDT 06/24/2024 1:14 PM EDT us Ed aCrver MD LAB BLOOD ORDERABLES Final Result Performing Organization Address [facility] de Phone Number [facility] [address] [place] [address] * CO2 (06/07/2024 3:00 AM EDT) Bicarbonate (CO2) 24 21 - 31 mEq/L [facility] 06/07/2024 3:00 AM EDT 06/10/2024 12:19 PM EDT us Ed Carver MD LAB BLOOD ORDERABLES Final Result Performing Organization Address [facility] de Phone Number [facility] [address] [place] [address] * PTH, Intact (06/05/2024 3:00 AM EDT) [...] Address [facility]/ZIP Co de Phone Number [facility] [address] [place] [address] * (ABNORMAL) Hemoglobin A1c (06/05/2024 3:00 AM [...] ORDERABLES Final Result [facility] [address] [place] [address] * (ABNORMAL) Lipid panel (06/05/2024 3:00 AM EDT) Pathologist [facility] Cholesterol 140 <200 mg/dL [facility] Comment: Optimal: [...] BLOOD ORDERABLES Final Result Performing Organization Address City/[facility] Co de Phone Number [facility] [address] [place] [address] * (ABNORMAL) Phosphorus (05/13/2024 3:00 AM EDT) Only the most recent of2 resultswithin the time period is included. Phosphorus, Serum 11.5(H) 2.5 - 5.0 mg/dL [facility] 05/13/2024 3:00 AM EDT 05/14/2024 12:27 PM EDT us Ed Carver MD LAB BLOOD ORDERABLES Final Result Performing Organization Address City/[facility] de Phone Number [facility] [address] [place] [address] from Last [address] [place] [address] [facility] ([id number]) [facility] ([id number]) [facility] ([id number]) Care Teams Knuckler Relationship Specialty Start Date End Date Alyssa Manzano DO [address] [place] [id number] PCP - General Family Medicine 03/02/21
--- OUTSIDE RECORDS SUMMARY | 2024-07-12 16:31 | XMS_ITS | Clinical Summary ---
Author Organization [facility] Address [address] [place] [address] Care Team Providers Care Malt Specifications Control Assistant Name Role Phone Unavailable Primary Care Provider [...] 0.79 S/CO ratio 01/10/2022 10:39 AM EST 5minutes Hepatitis C Antibody Interpretation Nonreactive Nonreactive 01/10/2022 10:39 AM EST 5minutes Blood specimen (specimen) (Plasma/Serum) 01/09/2022 8:34 AM EST 01/09/2022 9:21 AM EST us Jaziel B Post MD LAB BLOOD ORDERABLES Final Resu lt HOSPITAL [facility] [address] [place] [id number] * HIV 1/2 Ag/Ab CMIA Reflex to Confirmation (01/09/2022 8:34 AM EST) HIV 1/2 Ag/Ab CMIA Nonreactive Nonreactive 01/10/2022 10:39 AM EST [facility] Comment: Results show no evidence of infection [...] Post LAB BLOOD ORDERABLES Final Resu lt [facility] [place] [facility] [address] [place] [address] from Last 3 Months or Most Recently Relevant to Health Maintenance Insurance [facility] MISC MGD MEDICARE OUT OF NETWORK Advance Directives * Full Code (Latest Code Status on File) Date Activated Date Inactivated Comments 01/06/2022 5:00 AM Question Answer Comments Decision Thoroughly Discussed with: Unable to Di scuss
--- OUTSIDE RECORDS SUMMARY | 2024-07-12 16:31 | XMS_ITS | Encounter Summary ---
Author Organization [facility] Address [address] [phone] Phone Care Team Providers Care Animal Care Giver Name Role Phone Mary Manzanonifer Primary Care Provider Unava ilable Encounter Details Date Type Department Care Team (Late st Contact Info) Description 07/08/2024 Treatment [facility] [address] [phone] Placido Carver MD [address] [phone] End stage renal disease; Dependence [...] care for end stage renal disease. Attending Employment Services Director: PLACIDO CARVER MD Dialysis Location: [facility] Schedule: Shift: 2 OVERVIEW Patient is [...] dialysis documented in this encounter Care Teams Animal Care Giver Relationship Specialty Start Date End Date Alyssa Manzano DO [address] [place] [id number] PCP - General Family Medicine 03/02/21 documented as of this encounter
--- OUTSIDE RECORDS SUMMARY | 2024-07-12 16:31 | XMS_ITS | Clinical Summary ---
Author Organization [employer] Address [address] [place] [address] Care Team Providers Care Safety Specialist Name Role Phone Genevieve Gtz MD [...] Encounters Date Type Department Care Team Description 07/11/2024 Results Follow-Up [facility] [address] [place] [phone] Genevieve Gtz MD CBC auto differential, C-reactive Protein, Beta-Hydroxybutyrate , Additional followed-up results: 8 07/11/2024 Orders Only GENERIC EXTERNAL DATA DEPARTMENT Provider, Generic External Data 07/09/2024 Results Follow-Up [address] [address] Genevieve Gtz MD High Sensitivity Troponin I, CTA Abdomen aorta runoff 07/08/2024 Orders Only [facility] External Provider, [facility] 06/20/2024 Refill [facility] [address] [place], [place] [phone] Paola Thurston, services advisor ulcer of 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 ([facility]); Chronic wound 06/20/2024 Telephone [facility] [address] [place] [address] Genevieve Gtz MD Med Refill 05/25/2024 Orders Only [facility] External Provider, [facility] 05/22/2024 Refill [facility] [address] [place] [address] Genevieve Gtz MD Chronic ulcer of 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 (CMS/HCC); Chronic wound 04/30/2024 3:15 PM EST Clinical Support [facility] [address] [place] [address] Paola Thurston RN Long-term current use of opiate analgesic 04/30/2024 Travel 04/24/2024 Telephone [facility] [address] [place] [address] Charlotte Pinedo RN Appointment Confirmation 04/21/2024 Refill [facility] [address] [place] [address] Genevieve Gtz MD Chronic ulcer of 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 (CMS/HCC); Chronic wound from Last 3 Months Immunizations Immunization Administration Dates Next Due DTP 08/08/1992, 2,07/05/1989,1988,1988 [...] Description 08/06/2024 2:15 PM EDT Clinical Support [facility] [address] [place] [address] Paola Thurston, RN [address] [facility] [place] [address] Health Maintenance Due Date Last Done Comments [...] Procedure Name Priority Date/Time Associated Diagnosis Comments HIGH SENSITIVITY TROPONIN I Routine 07/11/2024 5:42 PM EDT XR CHEST 1 VIEW Routine 07/11/2024 3:26 PM EDT US VENOUS DUPLEX LE LT Routine 2:55 PM EDT C-REACTIVE PROTEIN Routine 07/11/2024 2: 33 PM EDT SED RATE BY MODIFIED WESTERGREN Routine 07/11/2024 2:32 PM EDT HIGH SENSITIVITY TROPONIN I Routine 07/11/2024 2:32 PM EDT HCG, TOTAL, QN Routine 07/11/2024 2:32 PM EDT B TYPE NATRIURETIC PEPTIDE (BNP) Routine 07/11/2024 2:32 PM EDT MAGNESIUM Routine 07/11/2024 2:32 PM EDT COMPREHENSIVE METABOLIC PANEL Routine 07/11/2024 2:32 PM EDT LIPASE Routine 07/11/2024 2:32 PM EDT BETA-HYDROXYBUTYRATE Routine 07/11/2024 2:32 PM EDT CBC WITH AUTO DIFFERENTIAL Routine 07/11/2024 2:32 PM EDT XR FOOT 3+ VIEWS LEFT Routine 07/11/2024 2:15 PM EDT HIGH SENSITIVITY TROPONIN I Routine 07/08/2024 7:22 PM EDT CTA CHEST W AND WO CONTRAST Routine 07/08/2024 7:19 PM EDT CTA ABDOMEN AORTA RUNOFF Routine 07/08/2024 7:07 PM EDT IR US GUIDE VENOUS ACCESS Routine 06/03/2024 12:30 PM EDT IR CVC INSERT CENTRAL TUNNEL Routine 06/03/2024 12:30 PM EDT IR CVC REMOV TUNNEL WO PRT/EARLY BREASTFEEDING CARE SPECIALIST Routine 05/30/2024 11:00 AM EDT HEPATITIS C [...] Recently Relevant to Health Maintenance Results * (ABNORMAL) High Sensitivity Troponin I (07/11/2024 5:42 PM EDT) Only the most recent of3 resultswithin the time period is included. TROPONIN I HIGH SENSITIVITY 72.9(HH) <3.5 - 17.0 ng/L [facility] Comment:Critical value for t est(s): TROPONIN Results called to rhett back by:IHSAN Person calling: NGUYENQ Date:07/11/24 Time: 180The Corona high sensitivity Troponin-I results should beused in conjunction with other diagnostic information suchas ECG, clinical observations and information, and patientsymptoms to aid in the diagnosis of SC. 07/11/2024 5:42 PM EDT 07/11/2024 5:47 PM EDT us Generic External Data Provider LAB BLOOD ORDERAB LES Final Result [facility] [address] [place], [place] [phone] * XR Chest 1 View (07/11/2024 3:26 PM EDT) Anatomical Region Laterality Modality Chest Radiographic Vandana ging 07/11/2024 3:26 PM EDT Narrative 07/11/2024 3:50 PM EDT ? [facility] ?[address] ?[place] [address] ?XRay Report ? Signed ? Patient: Shereen Taylor ?MR#: [id number] ?? [id number] ? : 1990 ?Acct:[id number] ? Age/Sex: 33 / F ?ADM Date: 07/11/24 ? Loc: HO.ED ? Attending Dr: ? Ordering Physician: Tesha Moncada NP ?? Date of Service: 07/11/24 ?? Procedure(s): XR chest 1V ?? Accession Number(s): [id number] ? cc: Tesha Moncada NP; Genevieve Gtz MD ? EXAMINATION: ?? XR CHEST ? CLINICAL INFORMATION: ?? cp ? COMPARISON: ?? None available. ? TECHNIQUE: ?? Frontal view of the chest was obtained. ? FINDINGS: ?? Right-sided tunneled dialysis catheter in place with tip in the right ?? atrium. ? There is moderate cardiomegaly. Mediastinal hilar contours appear ?? normal. ? The lungs are clear bilaterally. No pneumothorax or effusion. ? No focal osseous or soft tissue abnormality. ? XR/XR chest 1V ?? IMPRESSION: ? 1. Dialysis catheter in good position. ?? 2. Cardiomegaly. ?? 3. No active lung disease. ? Electronically signed by: ??Damon Alanis MD ??07/11/2024 03:47 PM EDT RP ? Dictated By: ?Damon Alanis MD ? Signed By: ?<Electronically signed by Damon Alanis MD in OV> ?07/11/24 1547 ? DD/ 1526 ? TD/TT: 07/11/24 1542 ? Retail District Manager: ? Procedure Note Donsim, Kari - 07/11/[address] [address] XRay Report Signed Patient: Christian TaylorR#: [id number] : 1990Acct:[id number] Age/Sex: 33 / FADM Date: 07/11/24 Loc: .ED Attending Dr: Ordering Physician: Tesha Moncada NP Date of Service: 07/11/24 Procedure(s): XR chest 1V Accession Number(s): [id number] cc: Tesha Moncada NP; Genevieve Gtz MD EXAMINATION: XR CHEST CLINICAL INFORMATION: cp COMPARISON: None available. TECHNIQUE: Frontal view of the chest was obtained. FINDINGS: Right-sided tunneled dialysis catheter in place with tip in the right atrium. There is moderate cardiomegaly. Mediastinal hilar contours appear normal. The lungs are clear bilaterally. No pneumothorax or effusion. No focal osseous or soft tissue abnormality. XR/XR chest 1V IMPRESSION: 1. Dialysis catheter in good position. 2. Cardiomegaly. 3. No active lung disease. Electronically signed by: Damon Alanis MD 07/11/2024 03:47 PM EDT Dictated By: Damon Alanis MD Signed By: <Electronically signed by Damon Alanis MD in OV> 07/11/24 1547 DD/ 1526 TD/TT: 07/11/24 1542 Retail District Manager: us [facility] External Provider IMG XR PROCEDURES Final Result * US VENOUS DUPLEX LE LT (07/11/2024 2:55 PM EDT) Anatomical Region Laterality Modality Abdomen Ultrasound 07/11/2024 2:55 PM EDT Narrative 07/11/2024 3:19 PM EDT ? [facility] ?[address] ?[place], [place] [address] ? Ultrasound Report ? Signed ? Patient: Brandon,Natalis ?MR#: [id number] ?? [id number] ? : 1990 ?Acct:[id number] ? Age/Sex: 33 / F ?ADM Date: 07/11/24 ? Loc: HO.ED ? Attending Dr: ? Ordering Physician: Tesha Moncada NP ?? Date of Service: 07/11/24 ?? Procedure(s): US venous duplex LE LT ?? Accession Number(s): [id number] ? cc: Tesha Moncada NP; Genevieve Gtz MD ? EXAMINATION: ?? US TRIPLEX LOWER EXTREMITY, LEFT ? CLINICAL INFORMATION: ?? Calf pain, rule out DVT. ? COMPARISON: ?? 11/11/2023. ? TECHNIQUE: ?? Color-flow triplex imaging with spectral analysis and compression ?? Doppler were performed on the left lower extremity. ? FINDINGS: ?? Respiratory variation, normal compression and augmented flow are noted ?? throughout the left lower extremity. The visualized common femoral ?? vein, superficial femoral vein, profunda femoral vein, popliteal vein ?? and midcalf peroneal and posterior tibial venous segments show no ?? evidence of deep venous thrombosis. ? There is no Underwood's cyst. ? There are reactive appearing lymph nodes in the left groin. ? US/US venous duplex LE LT ?? IMPRESSION: ?? No evidence of deep venous thrombosis involving the left lower ?? extremity. ? Electronically signed by: ??Damon Alanis MD ??07/11/2024 03:17 PM EDT RP ? Dictated By: ?Damon Alanis MD ? Signed By: ?<Electronically signed by Damon Alanis MD in OV> ?07/11/24 1517 ? DD/ 1455 ? TD/TT: 07/11/24 1502 ? Retail District Manager: ? Procedure Note Donotuseinterpreter, Image - 07/11/2024 [place] [address] Ultrasound Report Signed Patient: Danna Taylor#: [id number] : 1990Acct:[id number] Age/Sex: 33 / FADM Date: 07/11/24 Loc: .ED Attending Dr: Ordering Physician: Tesha Moncada NP Date of Service: 07/11/24 Procedure(s): US venous duplex LE LT Accession Number(s): [id number] cc: Tesha Moncada NP; Genevieve Gtz MD EXAMINATION: US TRIPLEX LOWER EXTREMITY, LEFT CLINICAL INFORMATION: Calf pain, rule out DVT. COMPARISON: 11/11/2023. TECHNIQUE: Color-flow triplex imaging with spectral analysis and compression Doppler were performed on the left lower extremity. FINDINGS: Respiratory variation, normal compression and augmented flow are noted throughout the left lower extremity. The visualized common femoral vein, superficial femoral vein, profunda femoral vein, popliteal vein and midcalf peroneal and posterior tibial venous segments show no evidence of deep venous thrombosis. There is no Underwood's cyst. There are reactive appearing lymph nodes in the left groin. US/US venous duplex LE LT IMPRESSION: No evidence of deep venous thrombosis involving the left lower extremity. Electronically signed by: Damon Alanis MD 07/11/2024 03:17 PM EDT Dictated By: Damon Alanis MD Signed By: <Electronically signed by Damon Alanis MD in OV> 07/11/24 1517 DD/ 1455 TD/TT: 07/11/24 1502 Retail District Manager: us [facility] External Provider IMG US PROCEDURES Final Result * (ABNORMAL) C-reactive Protein (07/11/2024 2:33 PM EDT) Pathologist [facility] C Reactive Protein 0.65(H) < or = 0.50 mg/dL [facility] 07/11/2024 2:33 PM EDT 07/11/2024 2:41 PM EDT Generic External Data Provider LAB BLOOD ORDERAB LES Final Result Performing Organization Address [facility]/ZIP Co de Phone Number [facility] [address] [place] [phone] * Beta-Hydroxybutyrate (07/11/2024 2:32 PM EDT) [facility] Beta-Hydroxybut yrate 0.07 0.02 - 0.27 mmol/L [facility] 07/11/2024 2:32 PM EDT 07/11/2024 2:41 PM EDT Generic External Data Provider LAB BLOOD ORDERAB LES Final Result Performing Organization Address [facility] de Phone Number [facility] [address] [place] [phone] * (ABNORMAL) CBC auto differential (07/11/2024 2:32 PM EDT) [facility] White Blood Count 4.8 4.8 - 10.8 X10*3/uL [facility] Red Blood Count 3.50(L) 4.20 - 5.50 X10*6/uL [facility] Hemoglobin 10.2(L) 12.0 - 16.0 g/dl [facility] Hematocrit 31.1(L) 37.0 - 47.0 % [facility] Mean Corpuscular Volume 88.9 80.0 - 98.0 fL [facility] Mean Corpuscular Hemoglobin 29.1 27.0 - 33.0 pg [facility] Mean Corpuscular HGB Conc 32.8 31.0 - 35.0 g/dl [facility] Red Cell Distribution Width 15.8 11.0 - 16.0 % [facility] Platelet Count 95(L) 160 - 400 X10*3/uL [facility] Mean Platelet Volume 11.6 9.4 - 12.3 fL [facility] Neutrophils Percent Auto 65.1 45 - 73 % [facility] Imm Gran Pct Auto 0.2 0.0 - 0.4 % [facility] Lymphocytes Percent Auto 15.5(L) 20 - 40 % [facility] Monocytes Percent Auto 15.3(H) 2 - 11 % [facility] Eosinophils Percent Auto 3.5 0 - 4 % [facility] Basophils Percent Auto 0.4 0 - 2 % [facility] NRBC Pct Auto 0.0 0.0 - 0.2 /100WBC [facility] Neutrophils Absolute Auto 3.2 2.0 - 8.3 x10*3/uL [facility] Imm Gran Abs Auto 0.01 0.00 - 0.03 X10*3/uL [facility] Lymphocytes Absolute Auto 0.8(L) 1.2 - 4.9 X10*3/uL [facility] Monocytes Absolute Auto 0.7 0.1 - 1.2 X10*3/uL [facility] Eosinophils Absolute Auto 0.2 0.0 - 0.4 X10*3/uL [facility] Basophils Absolute Auto 0.0 0.0 - 0.2 X10*3/uL [facility] NRBC Abs Auto 0.000 0.0 - 0.012 X10*3/uL [facility] 07/11/2024 2:32 PM EDT 07/11/2024 2:41 PM EDT us Generic External Data Provider LAB BLOOD ORDERAB LES Final Result [facility] [address] [place] [phone] * (ABNORMAL) Sed Rate by Modified Radha (07/11/2024 2:32 PM EDT) Erythrocyte Sedimentation Rate 53(H) 0 - 20 MM/HR [facility] Comment:Patients with polycy themia and many hemoglobin abnormalitiesmay have depressed sed rates whereas patients with anemiamay have elevated sed rates. 07/11/2024 2:32 PM EDT 07/11/2024 2:41 PM EDT Generic External Data Provider LAB BLOOD ORDERAB LES Final Result Performing Organization Address City/[facility] Co de Phone Number [facility] [address] [place] [phone] * hCG, Total, Quantitative (07/11/2024 2:32 PM EDT) [facility] HCG Quantitative <2 mIU/mL [facility] Comment:Weeks post LMP Appro ximate hCG(Last Menstrual Period) Range (mIU/ml)3 - 4 weeks 9 - 1304 - 5 weeks 75 - 2,6005 - 6 weeks 850 - 20,8006 - 7 weeks 4000 - 100,2007 - 12 weeks 11,500 - 289,81179 - 16 weeks 18,300 - 137,65529 - 29 weeks (2nd trimester) 1,400 - 53,19268 - 41 weeks (3rd trimester) 940 - 60,000The Corona B- hCG assay is used for the early detection ofpregnancy; it cannot be used to diagnose any conditionunrelated to . If a B-hCG level is not supportedby the clinical evidence, results should be confirmed by analternative method (qualitative urine hCG, for example). 07/11/2024 2:32 PM EDT 07/11/2024 2:41 PM EDT us Generic External Data Provider LAB BLOOD ORDERAB LES Final Result Performing Organization Address [facility] Co de Phone Number [facility] [address] [place] [phone] * (ABNORMAL) B Type Natriuretic Peptide (BNP) (07/11/2024 2:32 PM EDT) [facility] B Type Natriuretic Peptide 3,701(H) <100 pg/mL [facility] 07/11/2024 2:32 PM EDT 07/11/2024 2:41 PM EDT Generic External Data Provider LAB BLOOD ORDERAB LES Final Result Performing Organization Address [facility] de Phone Number [facility] [address] [place] [phone] * Magnesium (07/11/2024 2:32 PM EDT) Pathologist [facility] Magnesium 2.2 1.6 - 2.6 mg/dL [facility] 07/11/2024 2:32 PM EDT 07/11/2024 2:41 PM EDT us Generic External Data Provider LAB BLOOD ORDERAB LES Final Result Performing Organization Address [facility] de Phone Number [facility] [address] [place] [phone] * Lipase (07/11/2024 2:32 PM EDT) Pathologist [facility] Lipase 52 8 - 78 U/L [facility] 07/11/2024 2:32 PM EDT 07/11/2024 2:41 PM EDT Generic External Data Provider LAB BLOOD ORDERAB LES Final Result Performing Organization Address [facility] de Phone Number [facility] [address] [place] [phone] * (ABNORMAL) Comprehensive Metabolic Panel (07/11/2024 2:32 PM EDT) Pathologist [facility] Sodium 136 135 - 145 mmol/L [facility] Potassium 4.8 3.3 - 5.1 mmol/L [facility] Chloride 97 96 - 108 mmol/L [facility] Carbon Dioxide 23 22 - 29 mmol/L [facility] Anion Gap 21(H) 12 - 20 [facility] Urea Nitrogen (BUN) 66(H) 9 - 16 mg/dL [facility] Creatinine, Serum 6.53(HH) 0.5 - 1.4 mg/dL [facility] Comment:Critical value for t est(s):MARIE Results called to rhett back by: SINA Person calling: NGUYENQ Date: 07/11/24Time: 1502 Creatinine Clr Calc Pharmacy 13.8 [facility] Comment:Provided height and weight: 175.26 cm,82.9 kg.eGFR (calculated from the MDRD study equation) and eCrCl(calculated from the Cockcroft-Gault equation) are based ondifferent parameters and may not yield comparable results.If eCrCl result is absurd, please check patient'sheight/weight. Estimated Glomerular Filt Rate 7 [facility] Comment:Chronic Kidney Disea se: Estimated GFR < 60 mL/min/1.79i5Xechls Kidney Disease: Estimated GFR < 15 mL/min/1.73m2 Glucose 110 60 - 115 mg/dL [facility] Calcium 9.0 8.4 - 10.2 mg/dL [facility] Bilirubin, Total 0.7 0.0 - 1.0 mg/dL [facility] Aspartate Amino Transferase 53(H) 5 - 31 U/L [facility] Alanine Aminotransferase <6 0 - 31 U/L [facility] Total Protein 8.0 6.5 - 8.0 g/dL [facility] Albumin Level 3.7 3.5 - 5.0 g/dL [facility] Alkaline Phosphatase 183(H) 39 - 117 U/L [facility] 07/11/2024 2:32 PM EDT 07/11/2024 2:41 PM EDT us Generic External Data Provider LAB BLOOD ORDERAB LES Final Result [facility] [address] [place] [phone] * XR Foot 3+ Views Left (07/11/2024 2:15 PM EDT) Anatomical Region Laterality Modality Lower Extremities, Foot Left Radiogra phic Imaging 07/11/2024 2:15 PM EDT Narrative 07/11/2024 3:53 PM EDT ? [facility] ?[address] ?[place], [place] [address] ?XRay Report ? Signed ? Patient: Brandon,Natalis ?MR#: [id number] ?? [id number] ? : 1990 ?Acct:[id number] ? Age/Sex: 33 / F ?ADM Date: 07/11/24 ? Loc: HO.ED ? Attending Dr: ? Ordering Physician: aVne Newman NP ?? Date of Service: 07/11/24 ?? Procedure(s): XR foot LT min 3V ?? Accession Number(s): [id number] ? cc: Genevieve Gtz MD; Vane Newman NP ? EXAMINATION: ?? XR FOOT, LEFT ? CLINICAL INFORMATION: ?? chronic wound, ? osteo ? COMPARISON: ?? None available. ? TECHNIQUE: ?? AP, lateral, and oblique views of the left foot. ? FINDINGS: ?? There has been prior amputation of the digits at the mid to distal ?? metatarsal levels. ?? No fracture, dislocation, or suspicious bone lesion. ?? No region of osteopenia or permeative bony change to suggest ?? radiographic changes of osteomyelitis. ?? There is a pes planus deformity with Charcot changes of the midfoot. ? Soft tissues demonstrate an ulceration in the mid plantar region. There ?? are diffuse vascular calcifications. No soft tissue emphysema. ? XR/XR foot LT min 3V ?? IMPRESSION: ?? 1. Ulceration mid plantar region without subcutaneous emphysema. ?? 2. No radiographic evidence of osteomyelitis. ?? 3. Charcot changes of the midfoot. Pes planus. ?? 4. Amputation of the digits at the mid to distal metatarsal levels. ? Electronically signed by: ??Damon Alanis MD ??07/11/2024 03:50 PM EDT RP ? Dictated By: ?Damon Alanis MD ? Signed By: ?<Electronically signed by Damon Alanis MD in OV> ?07/11/24 1550 ? DD/ 1415 ? TD/TT: 07/11/24 1542 ? Retail District Manager: ? Procedure Note Donotuseinterpreter, Image - 07/11/[address] [address] XRay Report Signed Patient: Danna Taylor#: [id number] : 1990Acct:[id number] Age/Sex: 33 / FADM Date: 07/11/24 Loc: HO.ED Attending Dr: Ordering Physician: Vane Newman NP Date of Service: 07/11/24 Procedure(s): XR foot LT min 3V Accession Number(s): [id number] cc: Genevieve Gtz MD; Vane Newman NP EXAMINATION: XR FOOT, LEFT CLINICAL INFORMATION: chronic wound, ? osteo COMPARISON: None available. TECHNIQUE: AP, lateral, and oblique views of the left foot. FINDINGS: There has been prior amputation of the digits at the mid to distal metatarsal levels. No fracture, dislocation, or suspicious bone lesion. No region of osteopenia or permeative bony change to suggest radiographic changes of osteomyelitis. There is a pes planus deformity with Charcot changes of the midfoot. Soft tissues demonstrate an ulceration in the mid plantar region. There are diffuse vascular calcifications. No soft tissue emphysema. XR/XR foot LT min 3V IMPRESSION: 1. Ulceration mid plantar region without subcutaneous emphysema. 2. No radiographic evidence of osteomyelitis. 3. Charcot changes of the midfoot. Pes planus. 4. Amputation of the digits at the mid to distal metatarsal levels. Electronically signed by: Damon Alanis MD 07/11/2024 03:50 PM EDT Dictated By: Damon Alanis MD Signed By: <Electronically signed by Damon Alanis MD in OV> 07/11/24 1550 DD/ 1415 TD/TT: 07/11/24 1542 Retail District Manager: [facility] External Provider IMG XR PROCEDURES Final Result * CTA Chest w/ and w/o Contrast (07/08/2024 7:19 PM EDT) Anatomical Region Laterality Modality Body, Chest Computed Tomogra phy 07/08/2024 7:19 PM EDT Narrative 07/08/2024 7:20 PM EDT ? [facility] ?[address] ?[place] [address] ? CT Scan Report ? Signed ? Patient: Brandon,Natalis ?MR#: [id number] ?? [id number] ? : 1990 ?Acct:[id number] ? Age/Sex: 33 / F ?ADM Date: 07/08/24 ? Loc: HO.ED ? Attending Dr: ? Ordering Physician: Kasia Ramirez ?? Date of Service: 07/08/24 ?? Procedure(s): CT angio chest aorta ?? Accession Number(s): [id number] ? cc: Genevieve Gtz MD; Kasia Ramirez ? Report Number: ?? [id number]: Total DLP = ?0.00 mGy-cm ? CLINICAL HISTORY: severe chest pain, radiating to back, severe HTN ? Limited examination. The chest beginning at T6 is included in the field of ?? view. Prominent sized heart. Partially visualized catheter terminating in ?? the right atrium. Partially visualized moderate calcified coronary artery ?? disease. No pericardial effusion. The visualized portions of pulmonary ?? artery are clear. Normal size aortic root and visualized ascending aorta. ?? Normal size visualized distal descending thoracic aorta. The lung bases ?? are clear. Wall thickening versus underdistention of the distal esophagus; ?? esophagitis could be considered. ? This document has been electronically signed by: Analy Mcgraw MD ?? on 07/08/2024 19:19:27 ? Dictated By: ?Analy La MD ? Signed By: ?<Electronically signed by Analy La MD in OV> ? 07/08/241919 ? DD/ 18 ? TD/TT: 07/08/241918 ? Retail District Manager: ? Procedure Note Kari Cuba - 07/08/2024 [facility] [address] [place] [address] CT Scan Report Signed Patient: Danna Taylor#: [id number] : 1990Acct:[id number] Age/Sex: 33 / FADM Date: 07/08/24 Loc: HO.ED Attending Dr: Ordering Physician: Kasia Ramirez Date of Service: 07/08/24 Procedure(s): CT angio chest aorta Accession Number(s): [id number] cc: Genevieve Gtz MD; Kasia Ramirez Report Number: [id number]: Total DLP = 0.00 mGy-cm CLINICAL HISTORY: severe chest pain, radiating to back, severe HTN Limited examination. The chest beginning at T6 is included in the field of view. Prominent sized heart. Partially visualized catheter terminating in the right atrium. Partially visualized moderate calcified coronary artery disease. No pericardial effusion. The visualized portions of pulmonary artery are clear. Normal size aortic root and visualized ascending aorta. Normal size visualized distal descending thoracic aorta. The lung bases are clear. Wall thickening versus underdistention of the distal esophagus; esophagitis could be considered. This document has been electronically signed by: Analy Mcgraw MD on 07/08/2024 19:19:27 Dictated By: Analy La MD Signed By: <Electronically signed by Analy La MD in OV> 07/08/241919 DD/ 18 TD/TT: 07/08/241918 Retail District Manager: [facility] External Provider IMG CT PROCEDURES Final Result * CTA Abdomen aorta runoff (07/08/2024 7:07 PM EDT) Anatomical Region Laterality Modality Body, Pelvis, Abdomen Computed T omography 07/08/2024 7:07 PM EDT Narrative 07/08/2024 7:09 PM EDT ? [facility] ?[address] ?[place] [address] ? CT Scan Report ? Signed with Addenda ? Patient: Brandon,Natalis ?MR#: [id number] ?? [id number] ? : 1990 ?Acct:[id number] ? Age/Sex: 33 / F ?ADM Date: 05/13/25 ? Loc: HO.ED ? Attending Dr: ? Ordering Physician: Kasia Ramirez ?? Date of Service: 07/08/24 ?? Procedure(s): CT angio abd aorta runoff ?? Accession Number(s): [id number] ? cc: Genevieve Gtz MD; Kasia Ramirez ? Report Number: ?? [id number]: Total DLP = ??494.00 mGy-cm ?ADDENDUM ?? This document has been electronically signed by: Analy Mcgraw MD ?? on 07/08/2024 19:07:26 ? ADDENDUM: ?? Receipt of this report by the clinical staff was confirmed with Dee Spence, ?? [employer] on July 08, 2024 19:24:00 EDT. ? This document has been electronically signed by: Jaren Dawn on ?? 07/08/2024 19:25:44 ? Addendum Dictated By: ?Analy La MD ? Addendum Signed By: ? <Electronically signed by Analy La MD in OV> ? 07/08/241926 ?? Addendum Cosigned By: ? DD/ ? TD/TT: 07/08/24 ? CLINICAL HISTORY: severe chest pain, radiating to back, severe HTN ? CT angio abdomen with bilateral lower extremity runoff and 3D ?? post-processing ? Comparison: CT/SR - CT ABDOMEN PELVIS WO IV CON - 07/03/24 19:01 EDT ?? CT/SR - CT ABDOMEN PELVIS W IV CON - 05/25/24 16:33 EDT ?? CT - CT ABDOMEN PELVIS W IV CON - 05/25/24 16:31 EDT ? Findings: ?? No aortic aneurysm or dissection. There is severe calcified ?? atherosclerotic disease. No significant stenosis of the proximal celiac, ?? superior and inferior mesenteric arteries. There is significant stenosis ?? the proximal left renal artery. There is significant stenosis the lower ?? pole distal right renal artery. Focal dilation of the vessel in the upper ?? pole of the right kidney measuring 8 mm could be an aneurysm or ?? pseudoaneurysm. ? There is diminished flow in distal vessels; even on the delayed images ?? continuous flow is not definitively visualized within the distal ?? anterior/posterior tibial, peroneal and dorsalis pedis arteries. The ?? vessels in the right lower extremity are otherwise patent. There is ?? multifocal significant stenosis of the right mid to distal femoral artery. ?? There is significant stenosis of the distal popliteal artery. ? There is diminished flow in distal vessels; even on the delayed images ?? continuous flow is not definitively visualized within mid to distal ?? anterior/posterior tibial, peroneal and dorsalis pedis arteries. This is ?? more pronounced than on the right. The vessels in the left lower extremity ?? are otherwise patent. There is significant stenosis in the left deep ?? femoral artery. There is multifocal significant stenosis of the left mid ?? to distal femoral artery. ? No consolidation at the lung bases. Prominent sized heart. Partially ?? visualized catheter in the right atrium. Moderate calcified coronary ?? artery disease. The previously seen pericardial effusion is no longer ?? visualized. ? Status post cholecystectomy. Unremarkable bladder. Atrophic kidneys. The ?? other solid organs are unremarkable. ? No bowel wall thickening or dilation. The appendix is not visualized. No ?? secondary signs of acute appendicitis. ? No lymphadenopathy. ?? No ascites. ? No acute osseous abnormality. There is distal muscular atrophy, greater on ?? the left. Left foot Charcot joint. ? Impression: ?? No aneurysm or dissection. Severe calcified atherosclerotic disease. Renal ?? artery stenosis with renal atrophy. Multifocal significant stenosis, ?? detailed above, most prominent in the lower extremities distally. ?? Diminished flow in distal vessels with continuous flow not definitively ?? visualized within the bilateral anterior/posterior tibial, peroneal and ?? dorsalis pedis arteries, more pronounced on the left. ? This document has been electronically signed by: Analy Mcgraw MD ?? on 07/08/2024 19:07:26 ? Dictated By: ?Analy La MD ? Signed By: ?<Electronically signed by Analy La MD in OV> ? 07/08/24 1908 ? DD/ 1907 ? TD/TT: 07/08/24 190 ? Retail District Manager: ? Procedure Note Kari Cuba - 07/08/[address] [address] [address] Scan Report Signed with Abel Patient: Christian TaylorR#: [id number] : 1990Acct:[id number] Age/Sex: 33 / FADM Date: 07/08/24 Loc: HO.ED Attending Dr: Ordering Physician: Kasia Ramirez Date of Service: 07/08/24 Procedure(s): CT angio abd aorta runoff Accession Number(s): [id number] cc: Genevieve Gtz MD; Kasia Ramirez Report Number: [id number]: Total DLP = 494.00 mGy-cm ADDENDUM This document has been electronically signed by: Analy Mcgraw MD on 07/08/2024 19:07:26 ADDENDUM: Receipt of this report by the clinical staff was confirmed with Dee Spence [employer] on July 08, 2024 19:24:00 EDT. This document has been electronically signed by: Jaren Dawn on 07/08/2024 19:25:44 Addendum Dictated By: Analy La MD Addendum Signed By: <Electronically signed by MD Dana in OV> 07/08/241926 Addendum Cosigned By: DD/ TD/TT: 07/08/24 CLINICAL HISTORY: severe chest pain, radiating to back, severe HTN CT angio abdomen with bilateral lower extremity runoff and 3D post-processing Comparison: CT/SR - CT ABDOMEN PELVIS WO IV CON - 07/03/24 19:[address]/SR - CT ABDOMEN PELVIS W IV CON - 05/25/24 16:[address] - CT ABDOMEN PELVIS W IV CON - 05/25/24 16:31 EDT Findings: No aortic aneurysm or dissection. There is severe calcified atherosclerotic disease. No significant stenosis of the proximal celiac, superior and inferior mesenteric arteries. There is significant stenosis the proximal left renal artery. There is significant stenosis the lower pole distal right renal artery. Focal dilation of the vessel in the upper pole of the right kidney measuring 8 mm could be an aneurysm or pseudoaneurysm. There is diminished flow in distal vessels; even on the delayed images continuous flow is not definitively visualized within the distal anterior/posterior tibial, peroneal and dorsalis pedis arteries. The vessels in the right lower extremity are otherwise patent. There is multifocal significant stenosis of the right mid to distal femoral artery. There is significant stenosis of the distal popliteal artery. There is diminished flow in distal vessels; even on the delayed images continuous flow is not definitively visualized within mid to distal anterior/posterior tibial, peroneal and dorsalis pedis arteries. This is more pronounced than on the right. The vessels in the left lower extremity are otherwise patent. There is significant stenosis in the left deep femoral artery. There is multifocal significant stenosis of the left mid to distal femoral artery. No consolidation at the lung bases. Prominent sized heart. Partially visualized catheter in the right atrium. Moderate calcified coronary artery disease. The previously seen pericardial effusion is no longer visualized. Status post cholecystectomy. Unremarkable bladder. Atrophic kidneys. The other solid organs are unremarkable. No bowel wall thickening or dilation. The appendix is not visualized. No secondary signs of acute appendicitis. No lymphadenopathy. No ascites. No acute osseous abnormality. There is distal muscular atrophy, greater on the left. Left foot Charcot joint. Impression: No aneurysm or dissection. Severe calcified atherosclerotic disease. Renal artery stenosis with renal atrophy. Multifocal significant stenosis, detailed above, most prominent in the lower extremities distally. Diminished flow in distal vessels with continuous flow not definitively visualized within the bilateral anterior/posterior tibial, peroneal and dorsalis pedis arteries, more pronounced on the left. This document has been electronically signed by: Analy Mcgraw MD on 07/08/2024 19:07:26 Dictated By: Analy La MD Signed By: <Electronically signed by Analy La MD in OV> 07/08/241907 DD/ 06 TD/TT: 07/08/241906 Retail District Manager: [facility] External Provider IMG CT PROCEDURES Edited Result - Final * IR US Guide - Venous Access (06/03/2024 12:30 PM EDT) Anatomical Region Laterality Modality X-Ray Angiograph y 06/03/2024 12:3 0 PM EDT Narrative 06/05/2024 7:41 AM EDT ? [facility] ?[address] ?[place] [address] ?Interventional Radiology Rpt ? Signed ? Patient: Brandon,Natalis ?MR#: [id number] ?? [id number] ? : 1990 ?Acct:[id number] ? Age/Sex: 33 / F ?ADM Date: 03/30/25 ? Loc: HO.S3 ?343-1 ? Attending Dr: Scarlet Arora MD ? Ordering Physician: Scarlet Arora MD ?? Date of Service: 06/03/24 ?? Procedure(s): IR us guide venous access ?? Accession Number(s): [id number] ? cc: Scarlet Arora MD; Genevieve Gtz MD ? Ultrasound-guided venous access for tunnel dialysis catheter was ?? dictated with fluoroscopy guided insertion of catheter ? Electronically signed by: ??Cam Garza MD ??06/05/2024 07:38 AM EDT RP ? Dictated By: ?Cam Garza MD ? Signed By: ?<Electronically signed by Cam Garza MD in OV> ?04/12/20 0738 ? DD/ 1230 ? TD/TT: 06/03/24 1342 ? Retail District Manager: [facility] ? Procedure Note Kari Cuba - 06/05/2024 [place] [address] Interventional Radiology Rpt Signed Patient: Danna Taylor#: [id number] : 1990Acct:[id number] Age/Sex: 33 / FADM Date: 05/25/24 Loc: .S3 343-[address]: Scarlet Arora MD Ordering Physician: Scarlet Arora MD Date of Service: 06/03/24 Procedure(s): IR us guide venous access Accession Number(s): [id number] cc: Scarlet Arora MD; Genevieve Gtz MD Ultrasound-guided venous access for tunnel dialysis catheter was dictated with fluoroscopy guided insertion of catheter Electronically signed by: Cam Garza MD 06/05/2024 07:38 AM EDT Dictated By: Cam Garza MD Signed By: <Electronically signed by Cam Garza MD in OV> 06/05/24 0738 DD/ 1230 TD/TT: 06/03/24 1342 Retail District Manager: [facility] External Provider IMG IR PROCEDURES Final Result * IR CVC Insert Central Tunnel (06/03/2024 12:30 PM EDT) Anatomical Region Laterality Modality Body X-Ray Angiograph y 06/03/2024 12:3 0 PM EDT Narrative 06/03/2024 5:04 PM EDT ? [facility] ?[address] ?[place] [address] ?Interventional Radiology Rpt ? Signed ? Patient: Brandon,Natalis ?MR#: [id number] ?? [id number] ? : 1990 ?Acct:[id number] ? Age/Sex: 33 / F ?ADM Date: 05/25/24 ? Loc: HO.S3 ?343-1 ? Attending Dr: Scarlet Arora MD ? Ordering Physician: Scarlet Arora MD ?? Date of Service: 06/03/24 ?? Procedure(s): IR cvc insert central tunnel ?? Accession Number(s): [id number] ? cc: Scarlet Arora MD; Genevieve Gtz [...] A tunneler attached to the 14.5 ?? Slovenian permacatheter was bluntly tunneled from the right anterior chest ?? wall lesion and pulled through the right neck incision. It was made ?? shoulder cuff was inside the skin. The thin wire in the right jugular ?? vein was exchanged over a small 5 Slovenian dilator. A thin wire was ?? removed and a long 0.035 wire was inserted through the 5 Slovenian dilator ?? and advanced into the IVC under fluoroscopy. The 5 Slovenian dilator was ?? removed and exchanged for a 8 Slovenian and a 12 Slovenian dilator and the ?? tract was dilated. Subsequently a 14.5 Slovenian dilator with below the ?? sheath was [...] internal ?? jugular vein. ? A 14.5 Slovenian glide path permacath 23 cm long was placed with its tip ?? in mid SVC. The catheter is ready for use. ? IR/IR cvc insert central tunnel ?? IMPRESSION: ?? Successful ultrasound and fluoroscopy-guided placement of a right ?? permacatheter. ? Fluoroscopy time: 0.8 minutes. ? Dose: 10.3 mGy. ? Electronically signed by: ??Cam Kayla MD ??06/03/2024 05:01 PM EDT RP ? Dictated By: ?Kayla,Cam S MD ? Signed By: ?<Electronically signed by Cam S Kayla, MD in OV> ?06/10/24 0832 ? DD/ 1230 ? TD/TT: 06/03/24 1342 ? Retail District Manager: MSM ? Procedure Note Rosa Elena, Image - 06/10/2024 [place] [address] Interventional Radiology Rpt Signed Patient: Danna Taylor#: [id number] : 1990Acct:[id number] Age/Sex: 33 / FADM Date: 05/25/24 Loc: [facility] 343-[address]: Scarlet Arora MD Ordering Physician: Scarlet Arora MD Date of Service: 06/03/24 Procedure(s): IR cvc insert central tunnel Accession Number(s): [id number] cc: Scarlet Arora MD; Genevieve Gtz MD [...] tissues. A tunneler attached to the 14.5 Slovenian permacatheter was bluntly tunneled from the right anterior chest wall lesion and pulled through the right neck incision. It was made shoulder cuff was inside the skin. The thin wire in the right jugular vein was exchanged over a small 5 Slovenian dilator. A thin wire was removed and a long 0.035 wire was inserted through the 5 Slovenian dilator and advanced into the IVC under fluoroscopy. The 5 Slovenian dilator was removed and exchanged for a 8 Slovenian and a 12 Slovenian dilator and the tract was dilated. Subsequently a 14.5 Slovenian dilator with below the sheath was inserted [...] patent right internal jugular vein. A 14.5 Slovenian glide path permacath 23 cm long was [...] 06/10/24 0832 DD/ 1230 TD/TT: 06/03/24 1342 Retail District Manager: [facility] External Provider IMG IR PROCEDURES Edited Result - Final * IR CVC REMOV TUNNEL WO PRT/PM (05/30/2024 11:00 AM EDT) Anatomical Region Laterality Modality X-Ray Angiograph y 05/30/2024 11:0 0 AM EDT Narrative 06/05/2024 9:29 AM EDT ? [place] [facility] ?[address] ?[place] [address] ?Interventional Radiology Rpt ? Signed ? Patient: Brandon,Natalis ?MR#: [id number] ?? [id number] ? : 1990 ?Acct:[id number] ? Age/Sex: 33 / F ?ADM Date: 05/25/24 ? Loc: HO.S3 ?343-1 ? Attending Dr: Scarlet Arora MD ? Ordering Physician: Scarlet Arora MD ?? Date of Service: 05/30/24 ?? Procedure(s): IR cvc remov tunnel wo prt/foundry helper ?? Accession Number(s): [id number] ? cc: Scarlet Arora MD; Genevieve Gtz MD ? Permacath was removed by Jaime Garcia/JOVON. No conscious sedation was ?? involved. Patient tolerated procedure extremely well. ? Electronically signed by: ??Cam Garza MD ??06/10/2024 09:00 AM EDT RP ? IR/IR cvc remov tunnel wo prt/foundry helper ?? IMPRESSION: ?? Successful ultrasound and fluoroscopy-guided placement of a right ?? permacatheter. ? Fluoroscopy time: 0.8 minutes. ? Dose: 10.3 mGy. ? Electronically signed by: ??Cam Garza MD ??06/03/2024 05:01 PM EDT RP ? Dictated By: ?Cam Garza MD ? Signed By: ?<Electronically signed by Cam Garza MD in OV> ?06/10/24 0900 ? DD/ 1100 ? TD/TT: 05/30/24 1159 ? Retail District Manager: [facility] ? Procedure Note Kari Cuba - 06/10/[address] [address] Interventional Radiology Rpt Signed Patient: Danna Taylor#: [id number] : 1990Acct:[id number] Age/Sex: 33 / FADM Date: 05/25/24 Loc: HO.S3 343-[address]: Scarlet Arora MD Ordering Physician: Scarlet Arora MD Date of Service: 05/30/24 Procedure(s): IR cvc remov tunnel wo prt/foundry helper Accession Number(s): [id number] cc: Scarlet Arora MD; Genevieve Gtz MD Permacath was removed by Jaime Garcia/PA. No conscious sedation was involved. Patient tolerated procedure extremely well. Electronically signed by: Cam Garza MD 06/10/2024 09:00 AM EDT RP IR/IR cvc remov tunnel wo prt/foundry helper IMPRESSION: Successful ultrasound and fluoroscopy-guided placement of a right permacatheter. Fluoroscopy time: 0.8 minutes. Dose: 10.3 mGy. Electronically signed by: Cam Garza MD 06/03/2024 05:01 PM EDT RP Dictated By: Cam Garza MD Signed By: <Electronically signed by Cam Garza MD in OV> 06/10/24 0900 DD/ 1100 TD/TT: 05/30/24 1159 Retail District Manager: RAD[facility] External Provider IMG IR PROCEDURES Edited Result - Final * Hepatitis C Antibody with Reflex to HCV, RNA, Quantitative, Real-Time PCR (03/07/2024 9:45 AM EST) Hepatitis C Antibody Nonreactive Nonreactive [facility] Comment:Antibodies to HCV no t detected; does not exclude early acuteHCV infection. Blood Venous blood specimen / Unknown 03/07/2024 9:45 AM EST 03/07/2024 11:34 AM EST Genevieve Casillas MD LAB BLOOD ORDERAB LES Final Result [facility] [address] [place] [phone] * HIV-1/2 Antigen and Antibodies, Fourth Generation, with Reflexes (03/07/2024 9:45 AM EST) HIV AB/AG Nonreactive Nonreactive [facility] Comment:HIV-1 p24 Ag and/or HIV-1/HIV-2 Ab not detected.A test result that is nonreactive does not exclude thepossibility of exposure to or infection with HIV-1 and/orHIV-2. Nonreactive results in this assay for individualswith prior exposure to HIV-1 and/or HIV-2 may be due toantigen and antibody levels that are below the limit ofdetection of this assay.The [employer] HIV Ag/Ab Combo assay result andsupplemental assay results should be interpreted inconjunction with the patient's clinical presentation,history and other laboratory results. If the results areinconsistent with clinical evidence, additional testing issuggested to confirm the result. Blood Venous blood specimen / Unknown 03/07/2024 9:45 AM EST 03/07/2024 11:34 AM EST us Genevieve Casillas MD LAB BLOOD ORDERAB LES Final Result Performing Organization Address City/[facility]/ZIP Co de Phone Number [facility] [address] [place] [phone] * Hemoglobin A1c (03/07/2024 9:45 AM EST) Hemoglobin A1c 5.7 <6.0 % [facility] Comment:Hemoglobin A1C Refer ence Range Adults: 4.8 - 6.0 % Non diabetic: < 6.0 % Goal: < 7.0 %Additional Action Suggested: > 8.0 %Note: Hemoglobin A1c results are invalid for patients with abnormal amounts of HbF. Blood transfusions may impact the HbA1c concentration in the patient sample. Estimated Average Glucose 117 mg/dL [facility] Comment:eAG = Estimated ave rage glucose which is %A1C expressed asaverage glucose, using the formula of the Z8P-FvyvrjdAuvcnho Glucose study (ADAG), Diabetes Care, Vol.31,#8,Sep. 2007 Blood Venous blood specimen / Unknown 03/07/2024 9:45 AM EST 03/07/2024 11:34 AM EST us Genevieve Casillas MD LAB BLOOD ORDERAB LES Final Result [facility] [address] [place] [phone] * (ABNORMAL) Lipid Panel, Standard (03/07/2024 9:45 AM EST) Triglycerides 36 <150 mg/dL [facility] Comment:Desirable Triglyceri de: less than 150 mg/dLBorderline High Triglyceride 150-199 mg/dLHigh Triglyceride: 200-499 mg/dLVery High Triglyceride: greater than or equal to 5OO mg/dL Cholesterol 107 <200 mg/dL [facility] Comment:Desirable Cholestero l: less than 200 mg/dLBorderline High Cholesterol: 200-239 mg/dLHigh Cholesterol: greater than 239 mg/dL LDL Cholesterol Calculated 65 <100 mg/dL [facility] Comment:Desirable LDL: less than 100 mg/dLNear Optimal/Above Optimal LDL: 110- 129 mg/dLBorderline High LDL: 130-159 mg/dLHigh LDL: 160-189 mg/dLVery High LDL: greater than or equal to 190 mg/dL HDL Cholesterol 35(L) >40 mg/dL [facility] Comment:Desirable HDL: great er than 40 mg/dL Note: This HDL assay may give artificially low results in patients with liver disease. Blood Venous blood specimen / Unknown 03/07/2024 9:45 AM EST 03/07/2024 11:34 AM EST Genevieve Casillas MD LAB BLOOD ORDERAB LES Final Result [facility] [address] [place] [phone] [phone] from Last 3 Months or Most Recently Relevant to Health Maintenance Insurance [employer] < 65 [place] [id number] Care Teams Safety Specialist Relationship Specialty Start Date End Date Geneveive Gtz MD [address] [place] [phone] PCP - General Internal Medicine 10/12/22
--- OUTSIDE RECORDS SUMMARY | 2024-07-12 16:31 | XMS_ITS | Encounter Summary ---
Author Organization [employer] Address [address] [facility] 7t [place] [address] Care Team Providers Care Joy Operator Helper Name Role Phone Genevieve Gtz MD Primary Care Pro vider Encounter Details Date Type Department Care Team (Late st Contact Info) Description 07/11/2024 Orders Only GENERIC EXTERNAL DATA DEPARTMENT Provider, Generic External Data Social History Tobacco Use Types Packs/Day Years [...] your housing situation today? I have katya arleth 09/20/[address] you li [...] 08/06/2024 2:15 PM EDT Clinical Support [facility] [address] [place] [address] Paola Thurston, RN [address] [place] [address] documented as of this encounter Goals Goal Patient Goal Type Associated Problems Recent Progress Patient-Stated? Author Blood Pressure < 140/90 Blood Pressure 129/75(2024 9:08 AM EST) No Jaime Chilel Hemoglobin A1c < 8 Result Component 5.7( 9:45 AM EST) No Jaime Chilel documented as of this encounter Procedures Procedure Name Priority Date/Time Associated Diagnosis Comments HIGH SENSITIVITY TROPONIN I Routine 07/11/2024 5:42 PM EDT XR CHEST 1 VIEW Routine 07/11/2024 3:26 PM EDT US VENOUS DUPLEX LE LT Routine 2:55 PM EDT C-REACTIVE PROTEIN Routine 07/11/2024 2: 33 PM EDT HIGH SENSITIVITY TROPONIN I Routine 07/11/2024 2:32 PM EDT BETA-HYDROXYBUTYRATE Routine 07/11/2024 2:32 PM EDT CBC WITH AUTO DIFFERENTIAL Routine 07/11/2024 2:32 PM EDT SED RATE BY MODIFIED WESTERGREN Routine 07/11/2024 2:32 PM EDT HCG, TOTAL, QN Routine 07/11/2024 2:32 PM EDT B TYPE NATRIURETIC PEPTIDE (BNP) Routine 07/11/2024 2:32 PM EDT MAGNESIUM Routine 07/11/2024 2:32 PM EDT LIPASE Routine 07/11/2024 2:32 PM EDT COMPREHENSIVE METABOLIC PANEL Routine 07/11/2024 2:32 PM EDT XR FOOT 3+ VIEWS LEFT Routine 07/11/2024 2:15 PM EDT documented in this encounter Results * (ABNORMAL) High Sensitivity Troponin I (07/11/2024 5:42 PM EDT) TROPONIN I HIGH SENSITIVITY 72.9(HH) <3.5 - 17.0 ng/L [facility] Comment:Critical value for t est(s): TROPONIN Results called to rhett back by:IHSAN Person calling: [email or web address] Date:07/11/24 Time: 180 Traxer high sensitivity Troponin-I results should beused in conjunction with other diagnostic information suchas ECG, clinical observations and information, and patientsymptoms to aid in the diagnosis of [place]. 07/11/2024 5:42 PM EDT 07/11/2024 5:47 PM EDT us Generic External Data Provider LAB BLOOD ORDERAB LES Final Result [facility] [address] [place] [phone] * XR Chest 1 View (07/11/2024 3:26 PM EDT) Anatomical Region Laterality Modality Chest Radiographic Vandana ging 07/11/2024 3:26 PM EDT Narrative 07/11/2024 3:50 PM EDT ? [facility] ?[address] ?[place] [address] ?XRay Report ? Signed ? Patient: Brandon,Natalis ?MR#: [id number] ?? [id number] ? : 1990 ?Acct:[id number] ? Age/Sex: 33 / F ?ADM Date: 07/11/24 ? Loc: HO.ED ? Attending Dr: ? Ordering Physician: Tesha Moncada NP ?? Date of Service: 07/11/24 ?? Procedure(s): XR chest 1V ?? Accession Number(s): [id number] ? cc: Tesha Moncada NP; Genevieve Gtz [...] DD/ 1526 ? TD/TT: 07/11/24 1542 ? Medical Administrative: ? Procedure Note Kari Cuba - 07/11/[address] [address] XRay Report Signed Patient: Danna Taylor#: [id number] : 1990Acct:[id number] Age/Sex: 33 / FADM Date: 07/11/24 Loc: HO.ED Attending Dr: Ordering Physician: Tesha Moncada NP Date of Service: 07/11/24 Procedure(s): XR chest 1V Accession Number(s): [id number] cc: Tesha Moncada NP; Genevieve Gtz MD [...] Damon Alanis MD 07/11/2024 03:47 PM EDT RP Dictated By: Damon Alanis MD Signed By: <Electronically signed by Damon Alanis MD in OV> 07/11/24 1547 DD/ 1526 TD/TT: 07/11/24 1542 Medical Administrative: [facility] External Provider IMG XR PROCEDURES Final Result * US VENOUS DUPLEX LE LT (07/11/2024 2:55 PM EDT) Anatomical Region Laterality Modality Abdomen Ultrasound 07/11/2024 2:55 PM EDT Narrative 07/11/2024 3:19 PM EDT ? [facility] ?[address] ?[place] [address] ? Ultrasound Report ? Signed ? Patient: Brandon,Natalis ?MR#: [id number] ?? [id number] ? : 1990 ?Acct:[id number] ? Age/Sex: 33 / F ?ADM Date: 05/16/25 ? Loc: HO.ED ? Attending Dr: ? Ordering Physician: Tesha Moncada NP ?? Date of Service: 07/11/24 ?? Procedure(s): US venous duplex LE LT ?? Accession Number(s): [id number] ? cc: Tesha Moncada NP; Genevieve Gtz [...] DD/ 1455 ? TD/TT: 07/11/24 1502 ? Medical Administrative: ? Procedure Note Kari Cuba - 07/11/2024 [place] [address] Ultrasound Report Signed Patient: Danna Taylor#: [id number] : 1990Acct:[id number] Age/Sex: 33 / FADM Date: 07/11/24 Loc: HO.ED Attending Dr: Ordering Physician: Tesha Moncada NP Date of Service: 07/11/24 Procedure(s): US venous duplex LE Accession Number(s): [id number] cc: Tesha Moncada NP; Genevieve Gtz MD [...] 07/11/24 1517 DD/ 1455 TD/TT: 07/11/24 1502 Medical Administrative: [facility] External Provider IMG US PROCEDURES Final Result * (ABNORMAL) C-reactive Protein (07/11/2024 2:33 PM EDT) C Reactive Protein 0.65(H) < or = 0.50 mg/dL [facility] 07/11/2024 2:33 PM EDT 07/11/2024 2:41 PM EDT Generic External Data Provider LAB BLOOD ORDERAB LES Final Result [facility] [address] [place] [phone] * (ABNORMAL) Sed Rate by Modified Pacoergren (07/11/2024 2:32 PM EDT) Erythrocyte Sedimentation Rate 53(H) 0 - 20 MM/HR [facility] Comment:Patients with polycy themia and many hemoglobin abnormalitiesmay have depressed sed rates whereas patients with anemiamay have elevated sed rates. 07/11/2024 2:32 PM EDT 07/11/2024 2:41 PM EDT Generic External Data Provider LAB BLOOD ORDERAB LES Final Result Performing Organization Address [facility] de Phone Number [facility] [address] [place] [address] [phone] * (ABNORMAL) High Sensitivity Troponin I (07/11/2024 2:32 PM EDT) TROPONIN I HIGH SENSITIVITY 57.1(HH) <3.5 - 17.0 ng/L [facility] Comment:Critical value for t est(s): TROP Results called to and readback by:SHWETHA Person calling: [email or web address] Date: 07/11/24 Time:1509The Corona high sensitivity Troponin-I results should beused in conjunction with other diagnostic information suchas ECG, clinical observations and information, and patientsymptoms to aid in the diagnosis of [place]. 07/11/2024 2:32 PM EDT 07/11/2024 2:41 PM EDT Generic External Data Provider LAB BLOOD ORDERAB LES Final Result Performing Organization Address [facility] Co de Phone Number [facility] [address] [place] [phone] [phone] * hCG, Total, Quantitative (07/11/2024 2:32 PM EDT) HCG Quantitative <2 mIU/mL [facility] Comment:Weeks post LMP Appro ximate hCG(Last Menstrual Period) Range (mIU/ml)3 - 4 weeks 9 - 1304 - 5 weeks 75 - 2,6005 - 6 weeks 850 - 20,8006 - 7 weeks 4000 - 100,2007 - 12 weeks 11,500 - 289,77752 - 16 weeks 18,300 - 137,96736 - 29 weeks (2nd trimester) 1,400 - 53,36569 - 41 weeks (3rd trimester) 940 - [...] ORDERAB LES Final Result Performing Organization Address [facility] Co de Phone Number [facility] [address] [place] [phone] * (ABNORMAL) B Type Natriuretic Peptide (BNP) (07/11/2024 2:32 PM EDT) [facility] B Type Natriuretic Peptide 3,701(H) <100 pg/mL [facility] 07/11/2024 2:32 PM EDT 07/11/2024 2:41 PM EDT Generic External Data Provider LAB BLOOD ORDERAB LES Final Result Performing Organization Address [facility] de Phone Number [facility] [address] [place] [phone] * Magnesium (07/11/2024 2:32 PM EDT) [facility] Magnesium 2.2 1.6 - 2.6 mg/dL [facility] 07/11/2024 2:32 PM EDT 07/11/2024 2:41 PM EDT Generic External Data Provider LAB BLOOD ORDERAB LES Final Result Performing Organization Address [facility] de Phone Number [facility] [address] [place] [phone] * (ABNORMAL) Comprehensive Metabolic Panel (07/11/2024 2:32 PM EDT) [facility] Sodium 136 135 - 145 mmol/L [facility] Potassium 4.8 3.3 - 5.1 mmol/L [facility] Chloride 97 96 - 108 mmol/L [facility] Carbon Dioxide 23 22 - 29 mmol/L [facility] Anion Gap 21(H) 12 - 20 [facility] Urea Nitrogen (BUN) 66(H) 9 - 16 mg/dL [facility] Creatinine, Serum 6.53(HH) 0.5 - 1.4 mg/dL [facility] Comment:Critical value for t est(s):MARIE Results called to rhett back by: SINA Person calling: NGUYENQ Date: 07/11/24Time: 1502 Creatinine Clr Calc Pharmacy 13.8 [facility] Comment:Provided height and weight: 175.26 cm,82.9 kg.eGFR (calculated from the MDRD study equation) and eCrCl(calculated from the Cockcroft-Gault equation) are based ondifferent parameters and may not yield comparable results.If eCrCl result is absurd, please check patient'sheight/weight. Estimated Glomerular Filt Rate 7 [facility] Comment:Chronic Kidney Disea se: Estimated GFR < 60 mL/min/1.24o3Ekjeqx Kidney Disease: Estimated GFR < 15 mL/min/1.73m2 Glucose 110 60 - 115 mg/dL [facility] Calcium 9.0 8.4 - 10.2 mg/dL [facility] Bilirubin, Total 0.7 0.0 - 1.0 mg/dL [facility] Aspartate Amino Transferase 53(H) 5 - 31 U/L [facility] Alanine Aminotransferase <6 0 - 31 U/L [facility] Total Protein 8.0 6.5 - 8.0 g/dL [facility] Albumin Level 3.7 3.5 - 5.0 g/dL [facility] Alkaline Phosphatase 183(H) 39 - 117 U/L [facility] 07/11/2024 2:32 PM EDT 07/11/2024 2:41 PM EDT us Generic External Data Provider LAB BLOOD ORDERAB LES Final Result [facility] [address] [place] [phone] [phone] * Lipase (07/11/2024 2:32 PM EDT) Pathologist [facility] Lipase 52 8 - 78 U/L [facility] 07/11/2024 2:32 PM EDT 07/11/2024 2:41 PM EDT Generic External Data Provider LAB BLOOD ORDERAB LES Final Result Performing Organization Address [facility]/ZIP Co de Phone Number [facility] [address] [place] [phone] * Beta-Hydroxybutyrate (07/11/2024 2:32 PM EDT) Pathologist [facility] Beta-Hydroxybut yrate 0.07 0.02 - 0.27 mmol/L [facility] 07/11/2024 2:32 PM EDT 07/11/2024 2:41 PM EDT Generic External Data Provider LAB BLOOD ORDERAB LES Final Result Performing Organization Address [facility] Co de Phone Number [facility] [address] [place] [phone] * (ABNORMAL) CBC auto differential (07/11/2024 2:32 PM EDT) [facility] White Blood Count 4.8 4.8 - 10.8 X10*3/uL [facility] Red Blood Count 3.50(L) 4.20 - 5.50 X10*6/uL [facility] Hemoglobin 10.2(L) 12.0 - 16.0 g/dl [facility] Hematocrit 31.1(L) 37.0 - 47.0 % [facility] Mean Corpuscular Volume 88.9 80.0 - 98.0 fL [facility] Mean Corpuscular Hemoglobin 29.1 27.0 - 33.0 pg [facility] Mean Corpuscular HGB Conc 32.8 31.0 - 35.0 g/dl [facility] Red Cell Distribution Width 15.8 11.0 - 16.0 % [facility] Platelet Count 95(L) 160 - 400 X10*3/uL [facility] Mean Platelet Volume 11.6 9.4 - 12.3 fL [facility] Neutrophils Percent Auto 65.1 45 - 73 % [facility] Imm Gran Pct Auto 0.2 0.0 - 0.4 % [facility] Lymphocytes Percent Auto 15.5(L) 20 - 40 % [facility] Monocytes Percent Auto 15.3(H) 2 - 11 % [facility] Eosinophils Percent Auto 3.5 0 - 4 % [facility] Basophils Percent Auto 0.4 0 - 2 % [facility] NRBC Pct Auto 0.0 0.0 - 0.2 /100WBC [facility] Neutrophils Absolute Auto 3.2 2.0 - 8.3 x10*3/uL [facility] Imm Gran Abs Auto 0.01 0.00 - 0.03 X10*3/uL [facility] Lymphocytes Absolute Auto 0.8(L) 1.2 - 4.9 X10*3/uL [facility] Monocytes Absolute Auto 0.7 0.1 - 1.2 X10*3/uL [facility] Eosinophils Absolute Auto 0.2 0.0 - 0.4 X10*3/uL [facility] Basophils Absolute Auto 0.0 0.0 - 0.2 X10*3/uL [facility] NRBC Abs Auto 0.000 0.0 - 0.012 X10*3/uL [facility] 07/11/2024 2:32 PM EDT 07/11/2024 2:41 PM EDT us Generic External Data Provider LAB BLOOD ORDERAB LES Final Result [facility] [address] [place] [phone] [phone] * XR Foot 3+ Views Left (07/11/2024 2:15 PM EDT) Anatomical Region Laterality Modality Lower Extremities, Foot Left Radiogra phic Imaging 07/11/2024 2:15 PM EDT Narrative 07/11/2024 3:53 PM EDT ? [facility] ?[address] ?[place] [address] ?XRay Report ? Signed ? Patient: Brandon,Natalis ?MR#: [id number] ?? [id number] ? : 1990 ?Acct:[id number] ? Age/Sex: 33 / F ?ADM Date: 07/11/24 ? Loc: HO.ED ? Attending Dr: ? Ordering Physician: Vane Newman NP ?? Date of Service: 07/11/24 ?? Procedure(s): XR foot LT min 3V ?? Accession Number(s): [id number] ? cc: Genevieve Gtz MD; Vane Newman [...] MD ? Signed By: ?<Electronically signed by Daomn Alanis MD in OV> ?07/11/24 1550 ? DD/ 1415 ? TD/TT: 07/11/24 1542 ? Medical Administrative: ? Procedure Note Donotuseinterpreter, Image - 07/11/[address] [address] XRay Report Signed Patient: Danna Taylor#: [id number] : 1990Acct:[id number] Age/Sex: 33 / FADM Date: 07/11/24 Loc: HO.ED Attending Dr: Ordering Physician: Vane Newman NP Date of Service: 07/11/24 Procedure(s): XR foot LT min 3V Accession Number(s): [id number] cc: Genevieve Gtz MD; Vane Newman NP [...] 07/11/24 1550 DD/ 1415 TD/TT: 07/11/24 1542 Medical Administrative: [facility] External Provider IMG XR PROCEDURES Final Result documented in this encounter Visit Diagnoses Not on filedocumented in this encounter Additional Health Concerns Assessment Noted Time PHQ-9 Depression Total Score: 0 10/23/19 24 2:23 PM EDT documented as of this encounter Care Teams Joy Operator Helper Relationship Specialty Start Date End Date Genevieve Gtz MD [address] [place] [phone] PCP - General Internal Medicine 10/12/22 documented as of this encounter
--- OUTSIDE RECORDS SUMMARY | 2024-07-12 16:31 | XMS_ITS | Encounter Summary ---
Author Organization [employer] Address [address] [place] [address] 7t [place] [address] Care Team Providers Care Chief Console Operator Name Role Phone Carolina Hsu Primary Care Provider +1- [phone] Genevieve Gtz MD Primary Care Pro vider Reason for Visit * Reason Onset Date Comments Med Refill 07/28/2022 Encounter Details Date Type Department Care Team ([facility] st Contact Info) Description 07/28/2022 Telephone [facility] MEDICINE [address] [place] [phone] Carolina Hsu FNP [address] [place] [address] Dept [place] [address] Med Refill Social History Tobacco Use Types [...] [facility] [address] [place] [address] Paola Thurston RN [address] [place] [address] documented as of this encounter Visit Diagnoses Diagnosis Acute on chronic heart failure, unspecified heart failure type (CMS/HCC)- Primary Benign essential hypertension Essential hypertension, benign documented in this encounter Care Teams Chief Console Operator Relationship Specialty Start Date End Date Carolina Hsu FNP PCP - General Family Medicine 01/16/22 10/11/22 Genevieve Gtz MD [address] [place] [address] PCP - General Internal Medicine 10/12/22 documented as of this encounter
--- OUTSIDE RECORDS SUMMARY | 2024-07-12 16:31 | XMS_ITS | Encounter Summary ---
Author Organization [employer] Address [address] [place] [address] 7t [place] [address] Care Team Providers Care Edi Architect Name Role Phone Carolina Hsu Primary Care Provider +1- [phone] Genevieve Gtz MD Primary Care Pro vider Encounter Details Date Type Department Care Team ([facility] Contact Info) Description 09/11/2022 Abstract [facility] MEDICINE [address] [place] [phone] Carolina Hsu FNP [address] [place] [address] Dept [place] [address] Social History Tobacco Use Types Packs/Day Years [...] Description 08/06/2024 2:15 PM EDT Clinical Support [facility] [address] [place] [address] Paola Thurston, KIRIT [address] [place] [address] documented as of this encounter Visit Diagnoses Not on filedocumented in this encounter Care Teams Edi Architect Relationship Specialty Start Date End Date Carolina Hsu FNP PCP - General Family Medicine 01/16/22 10/11/22 Genevieve Gtz MD [address] [place] [address] PCP - General Internal Medicine 10/12/22 documented as of this encounter
--- OUTSIDE RECORDS SUMMARY | 2024-07-12 16:31 | XMS_ITS | Encounter Summary ---
Author Organization [employer] Address [address] [facility] 7t [place] [address] Care Team Providers Care Gun Stocker Name Role Phone Genevieve Gtz MD Primary Care Pro vider Reason for Visit * Reason Onset Date Comments Med Refill 01/14/2024 Encounter Details Date Type Department Care Team ([facility] st Contact Info) Description 01/14/2024 Telephone [facility] MEDICINE [address] [place], [place] [phone] Genevieve Gtz MD [address] [place], [place] [phone] Med Refill Social History Tobacco Use Types [...] any questions you can contact pt at [phone]. * Telephone Encounter - Noelle Rodrigues - 01/14/2024 11:29 AM EST TC from pt requesting medication refill. Medications needing refill : oxyCODONE (Roxicodone) 5 MG immediate release tablet To be sent to: [facility]/pharmacy #[id number] [place] [address] documented in this encounter Plan of Treatment Upcoming Encounters Date Type Department Care Team (Late st Contact Info) Description 08/06/2024 2:15 PM EDT Clinical Support [facility] [address] [place] [address] Paola Thurston, KIRIT [address] [place] [address] documented as of this encounter Goals Goal [...] documented as of this encounter Care Teams Gun Stocker Relationship Specialty Start Date End Date Genevieve Gtz MD [address] [place] [phone] PCP - General Internal Medicine 10/12/22 documented as of this encounter
--- OUTSIDE RECORDS SUMMARY | 2024-07-12 16:31 | XMS_ITS | Encounter Summary ---
Author Organization [employer] Address [address] [place] [address] 7t [place] [address] Care Team Providers Care Lead Bi Developer Name Role Phone Carolina Hsu Primary Care Provider +1- [phone] Genevieve Gtz MD Primary Care Pro vider Encounter Details Date Type Department Care Team ([facility] Contact Info) Description 09/11/2022 Abstract [facility] MEDICINE [address] [place] [phone] Carolina Hsu FNP [address] [place] [address] Dept of [place] [address] Social History Tobacco Use Types Packs/Day Years [...] Description 08/06/2024 2:15 PM EDT Clinical Support [facility] MED [facility]S [address] [place] [address] Paola Thurston, KIRIT [address] [place] [address] documented as of this encounter Visit Diagnoses Not on filedocumented in this encounter Care Teams Lead Bi Developer Relationship Specialty Start Date End Date Carolina Hsu FNP PCP - General Family Medicine 01/16/22 10/11/22 Genevieve Gtz MD [address] [place] [address] PCP - General Internal Medicine 10/12/22 documented as of this encounter
--- OUTSIDE RECORDS SUMMARY | 2024-07-12 16:31 | XMS_ITS | Encounter Summary ---
Author Organization [employer] Address [address] [facility] 7t [place] [address] Care Team Providers Care Financial Underwriter Name Role Phone Genevieve Gtz MD Primary Care Pro vider Reason for Visit * Reason Comments Med Refill Encounter Details Date Type Department Care Team (Late st Contact Info) Description 08/26/2023 Refill [facility] [address] [place], [place] [phone] Genevieve Gtz MD [address] [place], [place] [phone] Benign essential hypertension Social History Tobacco Use [...] 2:15 PM EDT Clinical Support [facility] MED & PEDS [address] [place] [address] Paola Thurston, KIRIT [address] [place] [address] documented as of this encounter Goals Goal [...] documented as of this encounter Care Teams Financial Underwriter Relationship Specialty Start Date End Date Genevieve Gtz MD [address] [place] [address] PCP - General Internal Medicine 10/12/22 documented as of this encounter
--- OUTSIDE RECORDS SUMMARY | 2024-07-12 16:31 | XMS_ITS | Encounter Summary ---
Author Organization [employer] Address [address] [place] [address] 7[address] [place] [address] Care Team Providers Care Cart Pusher Name Role Phone Carolina Hsu TELEVISION OPERATOR Primary Care Provider +1- [phone] Genevieve Gtz MD Primary Care Pro vider Reason for Visit * Reason Onset Date Comments Appointment Request 03/30/2022 Encounter Details Date Type Department Care Team ([facility] st Contact Info) Description 03/30/2022 Telephone [facility] MEDICINE [address] [place] [phone] Carolina Hsu FNP [address] [place] [address] Dept of [place] [address] Appointment Request Social History Tobacco Use Types [...] EST TC to pt, [place]NS for todays EMERGENCY OPERATOR Renewal appt. Pt stated she is currently admitted to [facility], she statedshe has fluid in her lungs and she's a mess. Wished patient well and told her I would forward this information to her PCP. Requested she call back to reschedule EMERGENCY OPERATOR appt when she's feeling better. * Telephone Encounter - Stephen Davison - 03/30/2022 10:41 AM EST documented in this encounter Plan of Treatment Upcoming Encounters Date Type Department Care Team (Late st Contact Info) Description 08/06/2024 2:15 PM EDT Clinical Support [facility] [address] [place] [address] Paola Thurston, KIRIT [address] [place] [address] documented as of this encounter Visit Diagnoses Not on filedocumented in this encounter Care Teams Cart Pusher Relationship Specialty Start Date End Date Carolina Hsu FNP PCP - General Family Medicine 01/16/22 10/11/22 Genevieve Gtz MD [address] [place] [address] [phone] PCP - General Internal Medicine 10/12/22 documented as of this encounter
--- OUTSIDE RECORDS SUMMARY | 2024-07-12 16:31 | XMS_ITS | Encounter Summary ---
Author Organization [employer] Address [address] [facility] 7[address] [place] [address] Care Team Providers Care Graphics Coordinator Name Role Phone Genevieve Gtz MD Primary Care Pro vider Encounter Details Date Type Department Care Team (Late st Contact Info) Description 07/11/2024 Results Follow-Up [facility] [address] [place], [place] [phone] Genevieve Gtz MD [address] [place], [place] [phone] CBC auto differential, C-reactive Protein, Beta-Hydroxybutyrate , Additional followed-up results: 8 Social History Tobacco Use Types Packs/Day Years [...] Encounter Note - Genevieve Casillas MD - 07/11/2024 3:56 PM EDT Labs done by outside provider * Result Encounter Note - Genevieve Casillas MD - 07/11/2024 3:55 PM EDT Labs done by outside provider documented in this encounter Plan of Treatment Upcoming Encounters Date Type Department Care Team (Late st Contact Info) Description 08/06/2024 2:15 PM EDT Clinical Support [facility] [address] [place] [address] Paola Thurston, KIRIT [address] [place] [address] documented as of this encounter Goals Goal [...] documented as of this encounter Care Teams Graphics Coordinator Relationship Specialty Start Date End Date Genevieve Gtz MD [address] [place] [phone] PCP - General Internal Medicine 10/12/22 documented as of this encounter
--- OUTSIDE RECORDS SUMMARY | 2024-07-12 16:31 | XMS_ITS | Encounter Summary ---
Author Organization [employer] Address [address] 7[address] [place] [address] Care Team Providers Care Engine Wiper Name Role Phone Genevieve Gtz MD Primary Care Pro vider Encounter Details Date Type Department Care Team (Late st Contact Info) Description 07/08/2024 Orders Only [facility] External Provider, [facility] Social History Tobacco Use Types Packs/Day Years [...] is your housing situation today? I have [place] reinoso 09/20/[address] you [...] Description 08/06/2024 2:15 PM EDT Clinical Support [facility] [address] [place] [address] Paola Thurston RN [address] [place] [address] documented as of this encounter Goals Goal Patient Goal Type Associated Problems Recent Progress Patient-Stated? Author Blood Pressure < 140/90 Blood Pressure 129/75(2024 9:08 AM EST) No Jaime Chilel Hemoglobin A1c < 8 Result Component 5.7( 9:45 AM EST) No Jaime Chilel documented as of this encounter Procedures Procedure Name Priority Date/Time Associated Diagnosis Comments HIGH SENSITIVITY TROPONIN I Routine 07/08/2024 7:22 PM EDT CTA CHEST W AND WO CONTRAST Routine 07/08/2024 7:19 PM EDT CTA ABDOMEN AORTA RUNOFF Routine 07/08/2024 7:07 PM EDT documented in this encounter Results * (ABNORMAL) High Sensitivity Troponin I (07/08/2024 7:22 PM EDT) TROPONIN I HIGH SENSITIVITY 74.8() <3.5 - 17.0 ng/L [facility] Comment:Critical value for t est(s): TROP Results called to and readback by: CORA Person calling: LEONA Date: 07/08/24 Time:1954The Corona high sensitivity Troponin-I results should beused in conjunction with other diagnostic information suchas ECG, clinical observations and information, and patientsymptoms to aid in the diagnosis of [place]. 07/08/2024 7:22 PM EDT 07/08/2024 7:27 PM EDT us Generic External Data Provider LAB BLOOD ORDERAB LES Final Result Performing Organization Address [facility]/State/ZIP Co de Phone Number [facility] [address] [place] [address] [phone] * CTA Chest w/ and w/o Contrast (07/08/2024 7:19 PM EDT) Anatomical Region Laterality Modality Body, Chest Computed Tomogra phy 07/08/2024 7:19 PM EDT Narrative 07/08/2024 7:20 PM EDT ? [facility] ?[address] ?[place] [address] ? [address] Scan Report ? Signed ? Patient: Brandon,Natalis ?MR#: [id number] ?? [id number] ? : 1990 ?Acct:[id number] ? Age/Sex: 33 / F ?ADM Date: 07/08/24 ? Loc: HO.ED ? Attending Dr: ? Ordering Physician: Kasia Ramirez ?? Date of Service: 07/08/24 ?? Procedure(s): CT angio chest aorta ?? Accession Number(s): [id number] ? cc: Genevieve Gtz MD; Kasia Ramirez ? Report Number: ?? [id number]: Total DLP = ?0.00 mGy-cm ? CLINICAL [...] ? DD/ 18 ? TD/TT: 07/08/241918 ? Marriage Therapist: ? Procedure Note Donotsenaitinterpreter, Image - 07/08/[address] [place] [address] [address] Scan Report Signed Patient: Danna Taylor#: [id number] : 1990Acct:[id number] Age/Sex: 33 / FADM Date: 07/08/24 Loc: HO.ED Attending Dr: Ordering Physician: Kasia Ramirez Date of Service: 07/08/24 Procedure(s): CT angio chest aorta Accession Number(s): [id number] cc: Genevieve Gtz MD; Kasia Ramirez Report Number: [id number]: Total DLP = 0.00 mGy-cm CLINICAL HISTORY: [...] in OV> 07/08/241919 DD/ 18 TD/TT: 07/08/241918 Marriage Therapist: [facility] External Provider IMG CT PROCEDURES Final Result * CTA Abdomen aorta runoff (07/08/2024 7:07 PM EDT) Anatomical Region Laterality Modality Body, Pelvis, Abdomen Computed T omography 07/08/2024 7:07 PM EDT Narrative 07/08/2024 7:09 PM EDT ? [facility] ?[address] ?[place] [address] ? CT Scan Report ? Signed with Addenda ? Patient: Brandon,Natalis ?MR#: [id number] ?? [id number] ? : 1990 ?Acct:[id number] ? Age/Sex: 33 / F ?ADM Date: 07/08/24 ? Loc: HO.ED ? Attending Dr: ? Ordering Physician: Kasia Ramirez ?? Date of Service: 07/08/24 ?? Procedure(s): CT angio abd aorta runoff ?? Accession Number(s): [id number] ? cc: Genevieve Gtz MD; Kasia Ramirez ? Report Number: ?? [id number]: Total DLP = ??494.00 mGy-cm ?ADDENDUM ?? This document has been electronically signed by: Analy Mcgraw MD ?? on 07/08/2024 19:07:26 ? ADDENDUM: ?? Receipt of this report by the clinical staff was confirmed with Dee Spence, ?? Spreading Machine Operator on July 08, 2024 19:24:00 EDT. ? [...] by Analy La MD in OV> ? 07/08/241907 ? DD/ 06 ? TD/TT: 07/08/241906 ? Marriage Therapist: ? Procedure Note Rosa Elena, Image - 07/08/[address] [place] [address] [address] [address] Scan Report Signed with Abel Patient: Danna Taylor#: [id number] : 1990Acct:[id number] Age/Sex: 33 / FADM Date: 07/08/24 Loc: .ED Attending Dr: Ordering Physician: Kasia Ramirez Date of Service: 07/08/24 Procedure(s): CT angio abd aorta runoff Accession Number(s): [id number] cc: Genevieve Gtz MD; Kasia Ramirez Report Number: [id number]: Total DLP = 494.00 mGy-cm ADDENDUM This document has been electronically signed by: Analy Mcgraw MD on 07/08/2024 19:07:26 ADDENDUM: Receipt of this report by the clinical staff was confirmed with Dee Spence Spreading Machine Operator on July 08, 2024 19:24:00 EDT. This [...] in OV> 07/08/241907 DD/ 06 TD/TT: 07/08/241906 Marriage Therapist: [facility] External Provider IMG CT PROCEDURES Edited Result - Final documented in this encounter Visit Diagnoses Not on filedocumented in this encounter Additional Health Concerns Assessment Noted Time PHQ-9 Depression Total Score: 0 10/23/19 24 2:23 PM EDT documented as of this encounter Care Teams Engine Wiper Relationship Specialty Start Date End Date Genevieve Gtz MD [address] [place] [phone] PCP - General Internal Medicine 10/12/22 documented as of this encounter
--- NOTE | 2024-07-12 17:05 | ED_ITS ---
HPI - Fall General Chief Complaint: Fall Stated Complaint: fall from standing +head strike, +LOC, head/neck p Time Seen by Provider: 07/12/24 17:05 Source: patient Mode of arrival: EMS Limitations: no limitations History of Present Illness ED Provider: Kareem Crespo DO HPI Narrative: 33-year-old female with past medical history of type 1 diabetes and end-stage renal disease on dialysis Sunday, and Sunday as well as syncope in the past presents to the emergency department via EMS due to a syncopal episode after getting up off the toilet head strike and resulting posterior head, midline neck, upper back and lower back pain despite taking the acetaminophen at home. Patient states this occurred after the dialysis session. She had no other preceding symptoms and denies chest pain, difficulty breathing or abdominal pain. She did have episodes of nonbloody/nonbilious vomiting and diarrhea earlier today and occasionally does have vomiting and diarrhea. She has complete blindness secondary to diabetic retinopathy. Uses a wheelchair at baseline but able to stand and ambulate at home. Related Data Home Medications ?Medication ?Instructions ?Recorded ?Confirmed albuterol sulfate 90 mcg/actuation 2 puff inhalation Q6H PRN wheezing 01/15/24 07/03/24 aerosol inhaler (Ventolin HFA) lidocaine 5 % topical patch 1 patch topical DAILY PRN Pain 01/15/24 07/03/24 nitroglycerin 0.4 mg sublingual 0.4 mg sublingual DIRECTED PRN 01/15/24 07/03/24 tablet Angina acetaminophen 325 mg tablet 650 mg PO Q4H PRN mild pain 03/11/24 07/03/24 oxycodone 5 mg tablet 5 mg PO Q8H PRN Pain 05/25/24 07/03/24 calcium carbonate (Tums) 200 mg PO TIDWM 07/03/24 07/03/24 Previous Rx's ?Medication ?Instructions ?Recorded carvedilol 12.5 mg tablet 12.5 mg PO BID 90 days #180 tabs 12/16/23 hydralazine 50 mg tablet 50 mg PO TID 90 days #270 tabs 12/16/23 cefazolin 2 gram intravenous 2 g IV . and 06/03/24 solution ondansetron 4 mg disintegrating 4 mg PO Q8H PRN nausea and 07/06/24 tablet vomiting #12 tabs Allergies Allergy/AdvReac Type Severity Reaction Status Date / Time morphine [MORPHINE] Allergy Intermediate Itching Verified 07/12/24 16:14 azithromycin [From Zithromax] Allergy Hives Verified 07/12/24 16:14 gabapentin Allergy Facial Verified 07/12/24 16:14 Swelling tramadol Allergy Facial Verified 07/12/24 16:14 Swelling vancomycin Allergy Anaphylaxis Verified 07/12/24 16:14 Review of Systems 2 Review of Systems: Yes all other systems are reviewed and are negative [facility] Past Medical History Medical History ESRD (end stage renal disease) Hypotonic neurogenic bladder Diabetic polyneuropathy ESRD (end stage renal disease) on dialysis Hypertensive emergency Non-compliance with renal dialysis Decompensated heart failure Congestive heart failure Renal failure Hypertension, uncontrolled Medical non-compliance Pericarditis Unspecified hypertension, condition or complication Metabolic acidosis Gastroparesis End stage chronic kidney disease Chronic kidney disease Anemia Chronic foot ulcer Plantar ulcer of left foot Major depressive disorder, single episode, severe Non-compliance with renal dialysis Hypertensive urgency MDD (major depressive disorder), recurrent episode MDD (major depressive disorder) Renal failure Foot ulcer CKD (chronic kidney disease) Hypertension Diabetic foot Hyperkalemia Vomiting Renal failure Hypertension Migraine Chronic pain ESRD on dialysis Non-compliance with renal dialysis Hypertension End-stage renal disease (ESRD) Diabetic foot ulcer associated with type 2 diabetes mellitus Diabetes ESRD needing dialysis Cardiomyopathy HFrEF (heart failure with reduced ejection fraction) delivery delivered Anemia in chronic kidney disease (CKD) CKD (chronic kidney disease) Headache, migraine Abnormal finding on echocardiogram Elevated troponin Chest pain Acute worsening of stage 3 chronic kidney disease Generalized edema Sepsis Cellulitis Pleural effusion CHF (congestive heart failure) (~06/07/22) Tachycardia Atypical chest pain Bone infection PAD (peripheral artery disease) Severe anemia Cellulitis and abscess of foot DM foot ulcer Osteomyelitis Asthma Depression with anxiety Diabetic retinopathy Type 2 diabetes mellitus with hyperglycemia, with long-term current use of insulin Blind right eye Diabetes Back pain Surgical History Tubal ligation status Previous section Hx laparoscopic cholecystectomy Hx of surgical procedure (~09/11/23) 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 Family History Family History Mother Coronary artery disease Myocardial infarction Stroke Diabetes mellitus Father Myocardial infarction Social History Social History Household Members: Family Household Members Other:: sister Housing: Apartment Are you a primary family day care provider to a significant other at home: No Do you presently have visiting nurse or other home services: No Unable to assess alcohol history related to: Unknown Alcohol intake: never Comment: Patient refusing assistance OOB and alarms as well as camera despite educat Patient Tobacco Use Status: Never used Tobacco Smoked in Last 30 Days: No e-Cigarette/Vaping Use: Never Used Second Hand Smoke Exposure: No Use of substances other than those prescribed or required for medical reasons: No Advance Directives: Yes Advance Directives on File: Yes Advance Directives Date on File: 09/04/23 Do you have a plan to hurt others: No Plan Patient : No service: No Current occupational status: unemployed and disabled Gender identity: Female Physical Exam 2 Vital Signs: Vital Signs: Last Vital Signs Temp 98.0 F 07/12/24 16:11 Pulse 88 07/12/24 20:08 Resp 14 07/12/24 20:08 BP 161/78 H 07/12/24 20:08 Pulse Ox 99 07/12/24 20:08 O2 Del Method Room Air 07/12/24 20:08 BMI result Body Mass Index 24.2 Constitutional: ?Alert, oriented, speaking in full sentences HEENT: ?Normocephalic, atraumatic. ?Moist mucous membranes Eyes: ?PERRL, EOMI Neck: ?Supple, diffuse midline tenderness to palpation without obvious deformity Chest: ?No chest wall tenderness Respiratory: ?Lungs clear to auscultation, no increased work of breathing Cardio: ?Regular rate and rhythm, no murmur, 2+ radial and DP pulses symmetrically GI: ?Soft, nondistended, nontender Back: ?Normal range of motion, diffuse midline tenderness to palpation Skin: ?No rash, no lesions Neuro: ?Alert and oriented to person, place and time, moves all 4 extremities, no focal deficits Extremities: ?No swelling or tenderness, full range of motion Psych: ?Calm, alert and cooperative, appropriate behavior Medications Administered Discontinued Medications Generic Name Dose Route Start Last Admin Trade Name Brandon PRN Reason Stop Dose Admin Diphenhydramine HCl 25 mg 07/12/24 17:39 07/12/24 19:07 Diphenhydramine Hcl 25 Mg Capsule PO 07/12/24 17:40 25 mg ONCE ONE Administration Hydromorphone HCl 0.5 mg 07/12/24 17:23 07/12/24 17:37 Hydromorphone Hcl 0.5 Mg/0.5 Ml Syringe IVPUSH 07/12/24 17:24 0.5 mg ONCE ONE Administration Protocol Medical Decision Making Medical Decision Making [facility] Narrative: Patient presenting for syncopal episode at home with prodromal dizziness upon standing after getting up off the toilet. She endorses persistent pain and will be treated with hydromorphone. I have no suspicion for ACS as the cause. However, given her history, we will evaluate for electrolyte disturbance or anemia as potential causes for the syncope. We will evaluate her brain pain and tenderness on exam. Labs reviewed and show unremarkable CBC with a mild chronic anemia and thrombocytopenia, improved from baseline creatinine expected with dialysis received today, no electrolyte abnormalities, baseline LFTs, negative lipase, and unchaged ECG. CT spine unremarkable. No clinical signs of mastoiditis. CT imaging of the brain unremarkable. At this time there is no evidence of dangerous etiology to the patient's symptoms and she is stable for discharge to home. She will need a ride for transportation given chronic wheelchair use for mobility. Admission/Observation Consideration of admission/observation: Escalation of care including admission/observation considered Lab Data [facility] Lab Attestation statement: I reviewed the patient's lab results. 07/12/24 17:45 07/12/24 17:45 Labs: Lab Results 07/12/24 Range/Units 17:45 WBC 3.9 L (4.8-10.8) X10*3/uL RBC 3.79 L (4.20-5.50) X10*6/uL Hgb 11.1 L (12.0-16.0) g/dl Hct 32.8 L (37.0-47.0) % MCV 86.5 (80.0-98.0) fL MCH 29.3 (27.0-33.0) pg MCHC 33.8 (31.0-35.0) g/dl RDW 15.9 (11.0-16.0) % Plt Count 104 L (160-400) X10*3/uL MPV 11.7 (9.4-12.3) fL Immature Gran % (Auto) 0.3 (0.0-0.4) % Neut % (Auto) 63.9 (45-73) % Lymph % (Auto) 14.8 L (20-40) % [place] % (Auto) 14.6 H (2-11) % Eos % (Auto) 5.6 H (0-4) % Baso % (Auto) 0.8 (0-2) % Lymph # (Auto) 0.6 L (1.2-4.9) X10*3/uL [place] # (Auto) 0.6 (0.1-1.2) X10*3/uL Eos # (Auto) 0.2 (0.0-0.4) X10*3/uL Baso # (Auto) 0.0 (0.0-0.2) X10*3/uL Abs Immat Gran (auto) 0.01 (0.00-0.03) X10*3/uL Absolute Neuts (auto) 2.5 (2.0-8.3) x10*3/uL Absolute Nucleated RBC 0.000 (0.0-0.012) X10*3/uL Nucleated RBC % (auto) 0.0 (0.0-0.2) /100WBC Sodium 136 (135-145) mmol/L Potassium 4.1 (3.3-5.1) mmol/L Chloride 96 (96-108) mmol/L Carbon Dioxide 27 (22-29) mmol/L Anion Gap 17 (12-20) BUN 31 H (9-16) mg/dL Creatinine 4.32 H* (0.5-1.4) mg/dL Estim Creat Clear Calc 17.0 Estimated GFR 12 Random Glucose 135 H (60-115) mg/dL Calcium 9.7 D (8.4-10.2) mg/dL Phosphorus 4.3 (2.7-4.5) mg/dL Magnesium 2.2 (1.6-2.6) mg/dL Total Bilirubin 0.8 (0.0-1.0) mg/dL Direct Bilirubin 0.3 (0.0-0.5) mg/dL AST 40 H (5-31) U/L ALT < 6 (0-31) U/L Alkaline Phosphatase 207 H (39-117) U/L Total Protein 8.7 H (6.5-8.0) g/dL Albumin 4.1 (3.5-5.0) g/dL Lipase 36 (8-78) U/L Independent Interpretation I performed an independent interpretation of an: EKG Interpretation: Normal sinus rhythm at 81 beats per minute, prolonged QTC, RBBB and LAFB, no diagnostic ST wave abnormalities otherwise, compared to prior dated 07/11/2024 there are no significant changes. Discharge Plan Discharge Clinical Impression: Syncope Qualifiers: Syncope type: unspecified Qualified Code(s): R55 - Syncope and collapse Fall Qualifiers: Encounter type: initial encounter Qualified Code(s): W19.XXXA - Unspecified fall, initial encounter Patient Disposition: Home, Self-Care Instructions: Syncope (ED), Fall Prevention (ED) Additional Instructions: We did a comprehensive workup and found no concerning findings with CT imaging of your brain, neck, and back as well as blood work and electrocardiogram. We treated your pain here. It is very important that he follow up with your primary care provider for re-evaluation and a pain plan given you have chronic pain. Please return if you have any recurrent episodes of passing out, worsening pain, or any new or concerning symptoms. Prescriptions: No Action carvedilol 12.5 mg Tablet 12.5 mg PO BID 90 Days Qty: 180 0RF Protocol: Hold for SBP/HR < HOLD for SBP < : 90 HOLD for HR < : 60 hydralazine 50 mg Tablet 50 mg PO TID 90 Days Qty: 270 0RF Protocol: Hold for SBP< HOLD for SBP < : 90 acetaminophen 325 mg tablet 650 mg PO Q4H PRN (Reason: mild pain) oxycodone 5 mg tablet 5 mg PO Q8H PRN (Reason: Pain) cefazolin 2 gram recon soln 2 g IV ./ and Sun Rx Instructions: 2 g cefazolin IV Sunday and Sunday post hemodialysis, end date July 11 lidocaine 5 % adhesive patch,medicated 1 patch topical DAILY PRN (Reason: Pain) nitroglycerin 0.4 mg tablet, sublingual 0.4 mg sublingual DIRECTED PRN (Reason: Angina) albuterol sulfate [Ventolin HFA] 90 mcg/actuation HFA aerosol inhaler 2 puff inhalation Q6H PRN (Reason: wheezing) calcium carbonate [Tums] 200 mg calcium (500 mg) Tablet,Chewable 200 mg PO TIDWM ondansetron 4 mg tablet,disintegrating 4 mg PO Q8H PRN (Reason: nausea and vomiting) Qty: 12 0RF Print Language: [place]an
--- NOTE | 2024-07-12 17:23 | ECG_ITS ---
Test Reason : SYNCOPE Blood Pressure : */* mmHG Vent. Rate : 81 BPM Atrial Rate : 81 BPM P-R Int : 180 ms QRS Dur : 156 ms QT Int : 478 ms P-R-T Axes : 56 -48 94 degrees QTcB Int : 555 ms Normal sinus rhythm Possible Left atrial enlargement Right bundle branch block Left anterior fascicular block Bifascicular block Abnormal ECG When compared with ECG of 11-Jul-2024 12:59, Left anterior fascicular block is now Present T wave inversion less evident in Anterior leads Referred By: Kareem Crespo Electronically Signed By: HATTIE BAÑUELOS MD
[2024-07-12 17:37] VITALS: RESP 18
[2024-07-12] MEDS: HYDROmorphone HCl 0.5 MG/0.5 ML SYRINGE IVPUSH (17:37)
[2024-07-12 17:50] LABS: Basophils Percent Auto 0.8 % (0-2); Eosinophils Absolute Auto 0.2 X10*3/uL (0.0-0.4); Eosinophils Percent Auto 5.6 % (0-4); Hematocrit 32.8 % (37.0-47.0); Hemoglobin 11.1 g/dl (12.0-16.0); Imm Gran Abs Auto 0.01 X10*3/uL (0.00-0.03); Imm Gran Pct Auto 0.3 % (0.0-0.4); Lymphocytes Absolute Auto 0.6 X10*3/uL (1.2-4.9); Lymphocytes Percent Auto 14.8 % (20-40); MANUAL DIFF FLAG NO; Mean Corpuscular HGB Conc 33.8 g/dl (31.0-35.0); Mean Corpuscular Hemoglobin 29.3 pg (27.0-33.0); Mean Corpuscular Volume 86.5 fL (80.0-98.0); Mean Platelet Volume 11.7 fL (9.4-12.3); Monocytes Absolute Auto 0.6 X10*3/uL (0.1-1.2); Monocytes Percent Auto 14.6 % (2-11); Neutrophils Absolute Auto 2.5 x10*3/uL (2.0-8.3); Neutrophils Percent Auto 63.9 % (45-73); Platelet Count 104 X10*3/uL (160-400); Red Blood Count 3.79 X10*6/uL (4.20-5.50); Red Cell Distribution Width 15.9 % (11.0-16.0); White Blood Count 3.9 X10*3/uL (4.8-10.8)
[2024-07-12 18:08] LABS: Alanine Aminotransferase < 6 U/L (0-31); Albumin Level 4.1 g/dL (3.5-5.0); Alkaline Phosphatase 207 U/L (39-117); Anion Gap 17 (12-20); Aspartate Amino Transferase 40 U/L (5-31); Bilirubin Direct 0.3 mg/dL (0.0-0.5); Bilirubin Total 0.8 mg/dL (0.0-1.0); Blood Urea Nitrogen 31 mg/dL (9-16); Calcium 9.7 mg/dL (8.4-10.2); Carbon Dioxide 27 mmol/L (22-29); Chloride 96 mmol/L (96-108); Estimated Glomerular Filt Rate 12; Glucose Random 135 mg/dL (60-115); Lipase 36 U/L (8-78); Potassium 4.1 mmol/L (3.3-5.1); Sodium 136 mmol/L (135-145); Total Protein 8.7 g/dL (6.5-8.0)
[2024-07-12 18:26] LABS: Magnesium 2.2 mg/dL (1.6-2.6); Phosphorus 4.3 mg/dL (2.7-4.5)
[2024-07-12 18:52] VITALS: BP 176/93; PULSE 81; RESP 16; O2SAT 96
[2024-07-12] MEDS: diphenhydrAMINE HCL 25 MG CAPSULE PO (19:07)
--- NOTE | 2024-07-12 19:11 | PC.NURSE ---
assumed care for pt at this time, pt a&ox3 speaking in full clear sentences. pt just returned from radiology in no notable distress. Medicated pt per apr. pt in stretcher resting well call moore within reach. plan of care ongoing.
[2024-07-12 20:08] VITALS: BP 161/78; PULSE 88; RESP 14; O2SAT 99
[2024-07-12 21:55] VITALS: BP 161/86; PULSE 82; RESP 17; TEMP 36.7; O2SAT 98
== END 2024-07-12 23:04 | disposition home or self-care (01) ==
PROVIDERS: Emergency Provider Emergency Medicine; PCP Student in an Organized Health Care Education/Training Program
DX: R55 Syncope and collapse (principal); S09.90XA Unspecified injury of head, initial encounter; W18.12XA Fall from or off toilet with subsequent striking against object, initial encounter; Y93.9 Activity, unspecified; Y92.89 Other specified places as the place of occurrence of the external cause; Y99.9 Unspecified external cause status; R51.9 Headache, unspecified; M54.2 Cervicalgia; M54.50 Low back pain, unspecified; D69.6 Thrombocytopenia, unspecified; E10.22 Type 1 diabetes mellitus with diabetic chronic kidney disease; I13.2 Hypertensive heart and chronic kidney disease with heart failure and with stage 5 chronic kidney disease, or end stage renal disease; I50.30 Unspecified diastolic (congestive) heart failure; N18.6 End stage renal disease; Z99.2 Dependence on renal dialysis; Z79.899 Other long term (current) drug therapy
CPT/HCPCS: 36415; 70450; 72125; 72128; 72131; 80048; 80076; 83690; 83735; 84100; 85025; 93005; 99285; J1171

== ENCOUNTER → 2024-07-12 17:23 | Outpatient (BNV) | payer OTHER, SELFPAY | PROVIDERS: Emergency Provider Emergency Medicine; PCP Student in an Organized Health Care Education/Training Program; Visit Provider Internal Medicine Cardiovascular Disease | DX: I45.2 Bifascicular block (principal) | CPT/HCPCS: 93010 ==

== ENCOUNTER → 2024-07-12 17:25 | Outpatient (BNV) | payer OTHER, SELFPAY | PROVIDERS: Emergency Provider Emergency Medicine; PCP Student in an Organized Health Care Education/Training Program; Visit Provider Radiology Diagnostic Radiology | DX: H74.8X2 Other specified disorders of left middle ear and mastoid (principal); I25.84 Coronary atherosclerosis due to calcified coronary lesion; M54.6 Pain in thoracic spine; S09.90XA Unspecified injury of head, initial encounter; W19.XXXA Unspecified fall, initial encounter | CPT/HCPCS: 70450; 72125; 72128; 72131 ==

== ENCOUNTER 2024-07-19 17:34 | Emergency (ER) | payer OTHER, SELFPAY ==
--- NOTE | ~2024-07-19 | XR_ITS ---
CLINICAL HISTORY: pain 1 view abdomen Comparison: CT/SR - CT ANGIO ABD AORTA RUNOFF - 07/08/24 17:32 EDT Findings: Moderate colonic fecal loading may indicate constipation. No findings of pneumoperitoneum or pneumatosis. Cholecystectomy clips noted. No suspicious calcification in the abdomen or pelvis identified. Vascular calcifications noted. Bones intact. IMPRESSION: Nonobstructive bowel-gas pattern. Moderate colonic fecal loading may indicate constipation. This document has been electronically signed by: Denny Lewis MD on 07/19/2024 19:26:40
[2024-07-19 17:55] VITALS: BP 138/69; BP 144/83; PULSE 75; PULSE 78; RESP 20; TEMP 36.9; O2SAT 100; O2SAT 98; BMI 30.1
[2024-07-19 18:02] VITALS: BP 138/69; PULSE 78; RESP 20; O2SAT 99
--- NOTE | 2024-07-19 18:10 | PC.NURSE ---
Patient presents with abdominal pain with assoc n/v/d for the past 2 days. Patient is well known for frequent ED visits. Appears to have chronic pain. Respirations even and non-labored. Abdomen sl firm, distended with positive bowel sounds. C/o of generalized abdominal pain. Dialysis catheter noted to her right chest wall for dialysis. Patient with chronic wounds and swelling to bilat feet. Dressings c@i. Significant PMH. PMH includes ESRD (end stage renal disease) Hypotonic neurogenic bladder Diabetic polyneuropathy ESRD (end stage renal disease) on dialysis Hypertensive emergency Non-compliance with renal dialysis Decompensated heart failure Congestive heart failure Renal failure Hypertension, uncontrolled Medical non-compliance Pericarditis Unspecified hypertension, condition or complication Metabolic acidosis Gastroparesis
--- NOTE | 2024-07-19 18:17 | PC.NURSE ---
PMH Continued: End stage chronic kidney disease Chronic kidney disease Anemia Chronic foot ulcer Plantar ulcer of left foot Major depressive disorder, single episode, severe Non-compliance with renal dialysis Hypertensive urgency MDD (major depressive disorder), recurrent episode MDD (major depressive disorder) Renal failure Foot ulcer CKD (chronic kidney disease) Hypertension Diabetic foot Hyperkalemia Vomiting Renal failure Hypertension Migraine Chronic pain ESRD on dialysis Non-compliance with renal dialysis Hypertension End-stage renal disease (ESRD) Diabetic foot ulcer associated with type 2 diabetes mellitus Diabetes ESRD needing dialysis Cardiomyopathy HFrEF (heart failure with reduced ejection fraction) delivery delivered Anemia in chronic kidney disease (CKD) CKD (chronic kidney disease) Headache, migraine Abnormal finding on echocardiogram Elevated troponin Chest pain Acute worsening of stage 3 chronic kidney disease Generalized edema Sepsis Cellulitis Pleural effusion CHF (congestive heart failure) (~06/07/22) Tachycardia Atypical chest pain Bone infection PAD (peripheral artery disease) Severe anemia Cellulitis and abscess of foot DM foot ulcer
[2024-07-19 18:39] LABS: MANUAL DIFF FLAG NO
[2024-07-19 18:47] LABS: Basophils Percent Auto 0.6 % (0-2); Eosinophils Absolute Auto 0.2 X10*3/uL (0.0-0.4); Eosinophils Percent Auto 6.4 % (0-4); Hematocrit 28.9 % (37.0-47.0); Hemoglobin 9.6 g/dl (12.0-16.0); Imm Gran Abs Auto 0.01 X10*3/uL (0.00-0.03); Imm Gran Pct Auto 0.3 % (0.0-0.4); Lymphocytes Absolute Auto 0.6 X10*3/uL (1.2-4.9); Lymphocytes Percent Auto 17.3 % (20-40); Mean Corpuscular HGB Conc 33.2 g/dl (31.0-35.0); Mean Corpuscular Hemoglobin 29.3 pg (27.0-33.0); Mean Corpuscular Volume 88.1 fL (80.0-98.0); Mean Platelet Volume 12.3 fL (9.4-12.3); Monocytes Absolute Auto 0.5 X10*3/uL (0.1-1.2); Monocytes Percent Auto 14.2 % (2-11); Neutrophils Absolute Auto 2.1 x10*3/uL (2.0-8.3); Neutrophils Percent Auto 61.2 % (45-73); Red Blood Count 3.28 X10*6/uL (4.20-5.50); Red Cell Distribution Width 15.7 % (11.0-16.0); White Blood Count 3.5 X10*3/uL (4.8-10.8)
[2024-07-19] MEDS: Midazolam HCl 2 MG/2 ML VIAL IVPUSH (18:49)
[2024-07-19] MEDS: HYDROmorphone HCl 0.5 MG/0.5 ML SYRINGE IVPUSH (18:49)
[2024-07-19 18:56] LABS: Platelet Count 96 X10*3/uL (160-400)
[2024-07-19 18:58] LABS: Alanine Aminotransferase 7 U/L (0-31); Alkaline Phosphatase 197 U/L (39-117); Anion Gap 14 (12-20); Aspartate Amino Transferase 33 U/L (5-31); Bilirubin Total 1.2 mg/dL (0.0-1.0); Blood Urea Nitrogen 31 mg/dL (9-16); Calcium 9.3 mg/dL (8.4-10.2); Carbon Dioxide 29 mmol/L (22-29); Chloride 100 mmol/L (96-108); Creatinine Clr Calc Pharmacy 18.1; Estimated Glomerular Filt Rate 10; Glucose Random 141 mg/dL (60-115); Lipase 35 U/L (8-78); Magnesium 2.2 mg/dL (1.6-2.6); Potassium 3.6 mmol/L (3.3-5.1); Sodium 139 mmol/L (135-145); Total Protein 8.4 g/dL (6.5-8.0)
[2024-07-19 19:17] LABS: Influenza A PCR NEGATIVE (Negative); Influenza B PCR NEGATIVE (Negative); Resp Syncy Virus RNA Qual PCR NEGATIVE (Negative); SARS COV2 PCR INHOUSE NEGATIVE (Negative)
--- NOTE | 2024-07-19 19:29 | ED.GENADULT ---
HPI - General Adult General Chief complaint: Abdominal Pain Stated complaint: Dialysis pt, lethargic, NVD Time Seen by Provider: 07/19/24 18:11 Source: patient Limitations: no limitations History of Present Illness ED Provider: Indu Rodriguez PA-C HPI narrative: 33-year-old female with a history of end-stage renal disease on dialysis Sunday/ but refuses to go on Saturdays, numerous hospital admissions secondary to nonadherence with her hemodialysis,?diabetes, diabetic retinopathy with associated blindness, peripheral vascular disease now status post bilateral trans metatarsal amputation, poorly controlled hypertension secondary to nonadherence with her medications, chronic respiratory failure on supplemental oxygen at home, heart failure with reduced ejection fraction, substance abuse, mood disorder, chronic pain , chronic chest/abdominal pain presents with AP x 1 week. Pain diffuse, unable to describe the nature of her discomfort. Associated nausea vomiting diarrhea having 4 bowel movements each day. Denies sick contacts with similar symptoms, no viral syndrome, no fever. No recent use of antibiotics, no travel, no recent hospitalizations. Related Data Home Medications ?Medication ?Instructions ?Recorded ?Confirmed albuterol sulfate 90 mcg/actuation 2 puff inhalation Q6H PRN wheezing 01/15/24 07/03/24 aerosol inhaler (Ventolin HFA) lidocaine 5 % topical patch 1 patch topical DAILY PRN Pain 01/15/24 07/03/24 nitroglycerin 0.4 mg sublingual 0.4 mg sublingual DIRECTED PRN 01/15/24 07/03/24 tablet Angina acetaminophen 325 mg tablet 650 mg PO Q4H PRN mild pain 03/11/24 07/03/24 oxycodone 5 mg tablet 5 mg PO Q8H PRN Pain 05/25/24 07/03/24 calcium carbonate (Tums) 200 mg PO TIDWM 07/03/24 07/03/24 Previous Rx's ?Medication ?Instructions ?Recorded carvedilol 12.5 mg tablet 12.5 mg PO BID 90 days #180 tabs 12/16/23 hydralazine 50 mg tablet 50 mg PO TID 90 days #270 tabs 12/16/23 cefazolin 2 gram intravenous 2 g IV . and 06/03/24 solution ondansetron 4 mg disintegrating 4 mg PO Q8H PRN nausea and 07/06/24 tablet vomiting #12 tabs docusate sodium 100 mg capsule 100 mg PO BID #14 caps 07/19/24 (Colace) polyethylene glycol 3350 17 17 g PO BID #238 grams 07/19/24 gram/dose oral powder (Miralax) Allergies Allergy/AdvReac Type Severity Reaction Status Date / Time morphine [MORPHINE] Allergy Intermediate Itching Verified 07/19/24 17:57 azithromycin [From Zithromax] Allergy Hives Verified 07/19/24 17:57 gabapentin Allergy Facial Verified 07/19/24 17:57 Swelling tramadol Allergy Facial Verified 07/19/24 17:57 Swelling vancomycin Allergy Anaphylaxis Verified 07/19/24 17:57 Review of Systems Review of Systems: Yes all other systems are reviewed and are negative Constitutional: Constitutional: Denies fatigue and Denies fever(s) Cardiovascular: Cardiovascular: Denies chest pain and Denies dyspnea Respiratory: Respiratory: Denies cough and Denies dyspnea Gastrointestinal: Gastrointestinal: Reports abdominal pain, Denies constipation, Reports diarrhea, Reports nausea and Reports vomiting Endocrine: Endocrine: Denies fatigue PMFSH Past Medical History Attestation statement: The following information was validated with the patient. Medical History ESRD (end stage renal disease) Hypotonic neurogenic bladder Diabetic polyneuropathy ESRD (end stage renal disease) on dialysis Hypertensive emergency Non-compliance with renal dialysis Decompensated heart failure Congestive heart failure Renal failure Hypertension, uncontrolled Medical non-compliance Pericarditis Unspecified hypertension, condition or complication Metabolic acidosis Gastroparesis End stage chronic kidney disease Chronic kidney disease Anemia Chronic foot ulcer Plantar ulcer of left foot Major depressive disorder, single episode, severe Non-compliance with renal dialysis Hypertensive urgency MDD (major depressive disorder), recurrent episode MDD (major depressive disorder) Renal failure Foot ulcer CKD (chronic kidney disease) Hypertension Diabetic foot Hyperkalemia Vomiting Renal failure Hypertension Migraine Chronic pain ESRD on dialysis Non-compliance with renal dialysis Hypertension End-stage renal disease (ESRD) Diabetic foot ulcer associated with type 2 diabetes mellitus Diabetes ESRD needing dialysis Cardiomyopathy HFrEF (heart failure with reduced ejection fraction) delivery delivered Anemia in chronic kidney disease (CKD) CKD (chronic kidney disease) Headache, migraine Abnormal finding on echocardiogram Elevated troponin Chest pain Acute worsening of stage 3 chronic kidney disease Generalized edema Sepsis Cellulitis Pleural effusion CHF (congestive heart failure) (~06/07/22) Tachycardia Atypical chest pain Bone infection PAD (peripheral artery disease) Severe anemia Cellulitis and abscess of foot DM foot ulcer Osteomyelitis Asthma Depression with anxiety Diabetic retinopathy Type 2 diabetes mellitus with hyperglycemia, with long-term current use of insulin Blind right eye Diabetes Back pain Surgical History Tubal ligation status Previous section Hx laparoscopic cholecystectomy Hx of surgical procedure (~09/11/23) 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 Family History Family History Mother Coronary artery disease Myocardial infarction Stroke Diabetes mellitus Father Myocardial infarction Social History Social History Household Members: Family Household Members Other:: sister Housing: Apartment Are you a primary care management assistant to a significant other at home: No Do you presently have visiting nurse or other home services: No Unable to assess alcohol history related to: Unknown Alcohol intake: never Comment: Patient refusing assistance OOB and alarms as well as camera despite educat Patient Tobacco Use Status: Never used Tobacco e-Cigarette/Vaping Use: Never Used Second Hand Smoke Exposure: No Advance Directives: Yes Advance Directives on File: Yes Advance Directives Date on File: 09/04/23 service: No Current occupational status: unemployed and disabled Gender identity: Female Physical Exam ED Vital Signs: Vital Signs - 24 hr 07/19/24 17:55 07/19/24 18:02 Temperature 98.5 F Pulse Rate 75 78 Respiratory Rate 20 20 Blood Pressure 138/69 138/69 Pulse Oximetry 100 99 Oxygen Delivery Method Room Air Room Air BMI result Body Mass Index 30.1 Const Other: Alert Orientation/consciousness: patient oriented x3 Resp Effort & Inspection: normal respiratory effort Cardio Other: Normal peripheral perfusion GI Other: Patient guarding against my exam before physically palpating her abdomen. We will distraction the entire abdomen is soft, nontender no guarding no distention Skin Other: Warm dry no rash Neuro Other: with of Exception cranial nerve II, patient is legally blood General: patient oriented x3, no focal motor deficits and CN's II-XI intact bilaterally Psych Other: Cooperative Medications Administered Discontinued Medications Generic Name Dose Route Start Last Admin Trade Name Brandon PRN Reason Stop Dose Admin Hydromorphone HCl 0.5 mg 07/19/24 18:36 07/19/24 18:49 Hydromorphone Hcl 0.5 Mg/0.5 Ml Syringe IVPUSH 07/19/24 18:37 0.5 mg ONCE ONE Administration Protocol Midazolam HCl 2 mg 07/19/24 18:36 07/19/24 18:49 Midazolam Hcl 2 Mg/2 Ml Vial IVPUSH 07/19/24 18:37 2 mg ONCE ONE Administration Procedures Procedure Narrative Procedure Narrative: Ultrasound-guided IV 20 gauge 1.16 in IV placed in left upper extremity, adequate blood return, flushes well secured with Tegaderm Medical Decision Making Medical Decision Making MDM Narrative: 33-year-old female with a history of end-stage renal disease on dialysis Sunday/ but refuses to go on Saturdays, numerous hospital admissions secondary to nonadherence with her hemodialysis,?diabetes, diabetic retinopathy with associated blindness, peripheral vascular disease now status post bilateral trans metatarsal amputation, poorly controlled hypertension secondary to nonadherence with her medications, chronic respiratory failure on supplemental oxygen at home, heart failure with reduced ejection fraction, substance abuse, mood disorder, chronic pain , chronic chest/abdominal pain presents with AP x 1 week. Pain diffuse, unable to describe the nature of her discomfort. Associated nausea vomiting diarrhea having 4 bowel movements each day. Denies sick contacts with similar symptoms, no viral syndrome, no fever. No recent use of antibiotics, no travel, no recent hospitalizations. Problem: Vascular disease, end-stage renal, diabetes, substance abuse, psychiatric illness, chronic pain History: Per patient I have considered the following differential diagnoses: Malingering, viral gastroenteritis, diverticulitis, C diff, traveler's diarrhea, Plan: The patient has a nonfocal exam, since February she has had 3 cat scans of her abdomen. She is often found to be constipated. We will screen basic labs and obtain a KUB. She has no risk factors for C diff or traveler's diarrhea. No sick contacts to suggest viral gastroenteritis, and again nonfocal exam no focal left lower quadrant pain to suggest diverticulitis. We will treat with low-dose Versed for nausea, she cannot have other antiemetics given her QTc is prolonged over 500, and Dilaudid, I will objectively treat her discomfort until proven otherwise. Labs: No leukocytosis, stable anemia, no electrolyte abnormality, creatinine at baseline, LFTs at baseline, KUB: Findings: Moderate colonic fecal loading may indicate constipation. No findings of pneumoperitoneum or pneumatosis. Cholecystectomy clips noted. No suspicious calcification in the abdomen or pelvis identified. Vascular calcifications noted. Bones intact. IMPRESSION: Nonobstructive bowel-gas pattern. Moderate colonic fecal loading may indicate constipation. Lab Data 07/19/24 18:33 07/19/24 18:33 Labs: Lab Results 07/19/24 Range/Units 18:33 WBC 3.5 L (4.8-10.8) X10*3/uL RBC 3.28 L (4.20-5.50) X10*6/uL Hgb 9.6 L (12.0-16.0) g/dl Hct 28.9 L (37.0-47.0) % MCV 88.1 (80.0-98.0) fL MCH 29.3 (27.0-33.0) pg MCHC 33.2 (31.0-35.0) g/dl RDW 15.7 (11.0-16.0) % Plt Count 96 L (160-400) X10*3/uL MPV 12.3 (9.4-12.3) fL Immature Gran % (Auto) 0.3 (0.0-0.4) % Neut % (Auto) 61.2 (45-73) % Lymph % (Auto) 17.3 L (20-40) % Randall % (Auto) 14.2 H (2-11) % Eos % (Auto) 6.4 H (0-4) % Baso % (Auto) 0.6 (0-2) % Lymph # (Auto) 0.6 L (1.2-4.9) X10*3/uL Randall # (Auto) 0.5 (0.1-1.2) X10*3/uL Eos # (Auto) 0.2 (0.0-0.4) X10*3/uL Baso # (Auto) 0.0 (0.0-0.2) X10*3/uL Abs Immat Gran (auto) 0.01 (0.00-0.03) X10*3/uL Absolute Neuts (auto) 2.1 (2.0-8.3) x10*3/uL Absolute Nucleated RBC 0.000 (0.0-0.012) X10*3/uL Nucleated RBC % (auto) 0.0 (0.0-0.2) /100WBC Sodium 139 (135-145) mmol/L Potassium 3.6 (3.3-5.1) mmol/L Chloride 100 (96-108) mmol/L Carbon Dioxide 29 (22-29) mmol/L Anion Gap 14 (12-20) BUN 31 H (9-16) mg/dL Creatinine 4.74 H* (0.5-1.4) mg/dL Estim Creat Clear Calc 18.1 Estimated GFR 10 Random Glucose 141 H (60-115) mg/dL Calcium 9.3 (8.4-10.2) mg/dL Magnesium 2.2 (1.6-2.6) mg/dL Total Bilirubin 1.2 H (0.0-1.0) mg/dL AST 33 H (5-31) U/L ALT 7 (0-31) U/L Alkaline Phosphatase 197 H (39-117) U/L Total Protein 8.4 H (6.5-8.0) g/dL Albumin 4.0 (3.5-5.0) g/dL Lipase 35 (8-78) U/L Influenza Type A (PCR) NEGATIVE (Negative) Influenza Type B (PCR) NEGATIVE (Negative) RSV RNA Qual (PCR) NEGATIVE (Negative) SARS-CoV-2 RNA (RT-PCR) NEGATIVE (Negative) Discharge Plan Discharge Clinical Impression: Constipation Patient Disposition: Home, Self-Care Instructions: Constipation (ED) Additional Instructions: You were found to be constipated on the imaging study of your abdomen. All of your labs were normal. See home care instructions. Use the MiraLax as directed, use the Colace as directed, until you begin having multiple large volume bowel movements. Moving forward, once you clear your current stool burden, you need to stay on a bowel regimen; use the Colace once a day with the MiraLax once a day. Follow up with your primary care provider as needed. Prescriptions: New polyethylene glycol 3350 [Miralax] 17 gram/dose powder 17 g PO BID Qty: 238 0RF docusate sodium [Colace] 100 mg capsule 100 mg PO BID Qty: 14 0RF No Action carvedilol 12.5 mg Tablet 12.5 mg PO BID 90 Days Qty: 180 0RF Protocol: Hold for SBP/HR < HOLD for SBP < : 90 HOLD for HR < : 60 hydralazine 50 mg Tablet 50 mg PO TID 90 Days Qty: 270 0RF Protocol: Hold for SBP< HOLD for SBP < : 90 acetaminophen 325 mg tablet 650 mg PO Q4H PRN (Reason: mild pain) oxycodone 5 mg tablet 5 mg PO Q8H PRN (Reason: Pain) cefazolin 2 gram recon soln 2 g IV ./ and Sun Rx Instructions: 2 g cefazolin IV Sunday and Sunday post hemodialysis, end date July 11 lidocaine 5 % adhesive patch,medicated 1 patch topical DAILY PRN (Reason: Pain) nitroglycerin 0.4 mg tablet, sublingual 0.4 mg sublingual DIRECTED PRN (Reason: Angina) albuterol sulfate [Ventolin HFA] 90 mcg/actuation HFA aerosol inhaler 2 puff inhalation Q6H PRN (Reason: wheezing) calcium carbonate [Tums] 200 mg calcium (500 mg) Tablet,Chewable 200 mg PO TIDWM ondansetron 4 mg tablet,disintegrating 4 mg PO Q8H PRN (Reason: nausea and vomiting) Qty: 12 0RF Print Language: Portuguese
--- NOTE | 2024-07-19 20:00 | PC.NURSE ---
KUB shows Nonobstructive bowel-gas pattern. Moderate colonic fecal loading may indicate constipation.
[2024-07-19 20:19] VITALS: BP 141/76; PULSE 79; RESP 16; TEMP 36.1; O2SAT 94
--- NOTE | 2024-07-19 20:34 | PC.NURSE ---
Ambulance requested for transfer home
[2024-07-19 21:08] VITALS: BP 141/76; PULSE 79; RESP 16; TEMP 36.1; O2SAT 94
== END 2024-07-19 21:09 | disposition home or self-care (01) ==
PROVIDERS: Physician Assistant Medical; Emergency Provider Emergency Medicine; PCP Student in an Organized Health Care Education/Training Program
DX: K59.00 Constipation, unspecified (principal); R10.2 Pelvic and perineal pain; Z03.818 Encounter for observation for suspected exposure to other biological agents ruled out; Z79.899 Other long term (current) drug therapy
CPT/HCPCS: 0241U; 74018; 80053; 83690; 83735; 85025; 96374; 96375; 99284; J1171; J2250

== ENCOUNTER → 2024-07-19 18:36 | Outpatient (BNV) | payer OTHER, SELFPAY | PROVIDERS: Emergency Provider Emergency Medicine; PCP Student in an Organized Health Care Education/Training Program; Visit Provider Radiology Diagnostic Radiology | DX: R14.0 Abdominal distension (gaseous) (principal) | CPT/HCPCS: 74018 ==

== ENCOUNTER 2024-07-21 14:00 | Emergency (ER) | payer OTHER, SELFPAY ==
--- NOTE | ~2024-07-21 | XR_ITS ---
CLINICAL HISTORY: wound pain Left foot three views Comparison: 12/13/2023 Findings: No acute fracture or dislocation identified. Status post amputation of all 5 digits. Surgical bed is unchanged from prior study. No acute bony erosions are identified. Degenerative change in the tarsals. Impression: No acute bony abnormality This document has been electronically signed by: Carlos Monae MD on 07/21/2024 17:49:28
[2024-07-21 14:18] VITALS: BP 224/108; PULSE 95; O2SAT 99
[2024-07-21 14:27] VITALS: BP 208/102; PULSE 93; RESP 18; TEMP 36.7; O2SAT 96; BMI 30.1
[2024-07-21 16:30] LABS: MANUAL DIFF FLAG NO
[2024-07-21 16:31] LABS: Basophils Percent Auto 0.4 % (0-2); Eosinophils Absolute Auto 0.3 X10*3/uL (0.0-0.4); Eosinophils Percent Auto 5.6 % (0-4); Hematocrit 28.7 % (37.0-47.0); Hemoglobin 9.6 g/dl (12.0-16.0); Imm Gran Abs Auto 0.01 X10*3/uL (0.00-0.03); Imm Gran Pct Auto 0.2 % (0.0-0.4); Lymphocytes Absolute Auto 0.9 X10*3/uL (1.2-4.9); Mean Corpuscular HGB Conc 33.4 g/dl (31.0-35.0); Mean Corpuscular Hemoglobin 29.4 pg (27.0-33.0); Mean Corpuscular Volume 87.8 fL (80.0-98.0); Mean Platelet Volume 11.4 fL (9.4-12.3); Monocytes Absolute Auto 0.5 X10*3/uL (0.1-1.2); Monocytes Percent Auto 9.2 % (2-11); Neutrophils Absolute Auto 3.4 x10*3/uL (2.0-8.3); Neutrophils Percent Auto 67.6 % (45-73); Platelet Count 120 X10*3/uL (160-400); Red Blood Count 3.27 X10*6/uL (4.20-5.50); Red Cell Distribution Width 15.8 % (11.0-16.0)
[2024-07-21 16:53] LABS: Alanine Aminotransferase < 6 U/L (0-31); Alkaline Phosphatase 179 U/L (39-117); Anion Gap 20 (12-20); Aspartate Amino Transferase 28 U/L (5-31); Blood Urea Nitrogen 75 mg/dL (9-16); Calcium 8.7 mg/dL (8.4-10.2); Carbon Dioxide 23 mmol/L (22-29); Chloride 101 mmol/L (96-108); Creatinine Clr Calc Pharmacy 10.1; Estimated Glomerular Filt Rate 5; Glucose Random 89 mg/dL (60-115); Sodium 140 mmol/L (135-145); Total Protein 8.2 g/dL (6.5-8.0)
[2024-07-21 18:00] VITALS: BP 207/110; PULSE 86; RESP 20; TEMP 36.6; O2SAT 91
--- NOTE | 2024-07-21 18:18 | ED.GENADULT ---
HPI - General Adult General Chief complaint: Wound/Laceration Stated complaint: L LEG WOUND Time Seen by Provider: 07/21/24 18:05 Source: patient Limitations: no limitations History of Present Illness ED Provider: Indu Carrero PA-C HPI narrative: 33-year-old female with a history of end-stage renal disease on dialysis Sunday/ but refuses to go on Saturdays, numerous hospital admissions secondary to nonadherence with her hemodialysis,?diabetes, diabetic retinopathy with associated blindness, peripheral vascular disease now status post bilateral trans metatarsal amputation, poorly controlled hypertension secondary to nonadherence with her medications, chronic respiratory failure on supplemental oxygen at home, heart failure with reduced ejection fraction, substance abuse, mood disorder, chronic pain , chronic chest/abdominal pain, presents with chronic left foot pain. Related Data Home Medications ?Medication ?Instructions ?Recorded ?Confirmed albuterol sulfate 90 mcg/actuation 2 puff inhalation Q6H PRN wheezing 01/15/24 07/03/24 aerosol inhaler (Ventolin HFA) lidocaine 5 % topical patch 1 patch topical DAILY PRN Pain 01/15/24 07/03/24 nitroglycerin 0.4 mg sublingual 0.4 mg sublingual DIRECTED PRN 01/15/24 07/03/24 tablet Angina acetaminophen 325 mg tablet 650 mg PO Q4H PRN mild pain 03/11/24 07/03/24 oxycodone 5 mg tablet 5 mg PO Q8H PRN Pain 05/25/24 07/03/24 calcium carbonate (Tums) 200 mg PO TIDWM 07/03/24 07/03/24 Previous Rx's ?Medication ?Instructions ?Recorded carvedilol 12.5 mg tablet 12.5 mg PO BID 90 days #180 tabs 12/16/23 hydralazine 50 mg tablet 50 mg PO TID 90 days #270 tabs 12/16/23 cefazolin 2 gram intravenous 2 g IV . and 06/03/24 solution ondansetron 4 mg disintegrating 4 mg PO Q8H PRN nausea and 07/06/24 tablet vomiting #12 tabs docusate sodium 100 mg capsule 100 mg PO BID #14 caps 07/19/24 (Colace) polyethylene glycol 3350 17 17 g PO BID #238 grams 07/19/24 gram/dose oral powder (Miralax) Allergies Allergy/AdvReac Type Severity Reaction Status Date / Time morphine [MORPHINE] Allergy Intermediate Itching Verified 07/21/24 14:28 azithromycin [From Zithromax] Allergy Hives Verified 07/21/24 14:28 gabapentin Allergy Facial Verified 07/21/24 14:28 Swelling tramadol Allergy Facial Verified 07/21/24 14:28 Swelling vancomycin Allergy Anaphylaxis Verified 07/21/24 14:28 Review of Systems Review of Systems: Yes all other systems are reviewed and are negative Constitutional: Constitutional: Denies fatigue and Denies fever(s) Musculoskeletal: Musculoskeletal: Reports arthralgias and Denies joint swelling Integumentary/Breasts: Skin/Breast: Reports change in pigmentation, Denies erythema and Reports wounds Endocrine: Endocrine: Denies fatigue PMFSH Past Medical History Attestation statement: The following information was validated with the patient. Medical History ESRD (end stage renal disease) Hypotonic neurogenic bladder Diabetic polyneuropathy ESRD (end stage renal disease) on dialysis Hypertensive emergency Non-compliance with renal dialysis Decompensated heart failure Congestive heart failure Renal failure Hypertension, uncontrolled Medical non-compliance Pericarditis Unspecified hypertension, condition or complication Metabolic acidosis Gastroparesis End stage chronic kidney disease Chronic kidney disease Anemia Chronic foot ulcer Plantar ulcer of left foot Major depressive disorder, single episode, severe Non-compliance with renal dialysis Hypertensive urgency MDD (major depressive disorder), recurrent episode MDD (major depressive disorder) Renal failure Foot ulcer CKD (chronic kidney disease) Hypertension Diabetic foot Hyperkalemia Vomiting Renal failure Hypertension Migraine Chronic pain ESRD on dialysis Non-compliance with renal dialysis Hypertension End-stage renal disease (ESRD) Diabetic foot ulcer associated with type 2 diabetes mellitus Diabetes ESRD needing dialysis Cardiomyopathy HFrEF (heart failure with reduced ejection fraction) delivery delivered Anemia in chronic kidney disease (CKD) CKD (chronic kidney disease) Headache, migraine Abnormal finding on echocardiogram Elevated troponin Chest pain Acute worsening of stage 3 chronic kidney disease Generalized edema Sepsis Cellulitis Pleural effusion CHF (congestive heart failure) (~06/07/22) Tachycardia Atypical chest pain Bone infection PAD (peripheral artery disease) Severe anemia Cellulitis and abscess of foot DM foot ulcer Osteomyelitis Asthma Depression with anxiety Diabetic retinopathy Type 2 diabetes mellitus with hyperglycemia, with long-term current use of insulin Blind right eye Diabetes Back pain Surgical History Tubal ligation status Previous section Hx laparoscopic cholecystectomy Hx of surgical procedure (~09/11/23) 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 Family History Family History Mother Coronary artery disease Myocardial infarction Stroke Diabetes mellitus Father Myocardial infarction Social History Social History Household Members: Family Household Members Other:: sister Housing: Apartment Are you a primary intensive care specialist to a significant other at home: No Do you presently have visiting nurse or other home services: No Unable to assess alcohol history related to: Unknown Alcohol intake: never Comment: Patient refusing assistance OOB and alarms as well as camera despite educat Patient Tobacco Use Status: Never used Tobacco e-Cigarette/Vaping Use: Never Used Second Hand Smoke Exposure: No Advance Directives: Yes Advance Directives on File: Yes Advance Directives Date on File: 09/04/23 Do you have a plan to hurt others: No Plan service: No Current occupational status: unemployed and disabled Gender identity: Female Physical Exam ED Vital Signs: Vital Signs - 24 hr 07/21/24 14:27 07/21/24 18:00 Temperature 98.1 F 97.9 F Pulse Rate 93 86 Respiratory Rate 18 20 Blood Pressure 208/102 H 207/110 H Pulse Oximetry 96 91 L Oxygen Delivery Method Room Air Room Air BMI result Body Mass Index 30.1 Const Other: Alert, appears older than stated age Orientation/consciousness: patient oriented x3 Resp Effort & Inspection: normal respiratory effort Cardio Other: Normal peripheral perfusion Skin Other: Warm dry no rash Neuro Other: With the exception of cranial nerve 2, she is legally blind General: patient oriented x3, no focal motor deficits and CN's II-XI intact bilaterally Extrem Other: No acute wound noted over remnant of left foot, it is chronically discolored. Psych Other: Belligerent Medical Decision Making Medical Decision Making MDM Narrative: 33-year-old female with a history of end-stage renal disease on dialysis Sunday/ but refuses to go on Saturdays, numerous hospital admissions secondary to nonadherence with her hemodialysis,?diabetes, diabetic retinopathy with associated blindness, peripheral vascular disease now status post bilateral trans metatarsal amputation, poorly controlled hypertension secondary to nonadherence with her medications, chronic respiratory failure on supplemental oxygen at home, heart failure with reduced ejection fraction, substance abuse, mood disorder, chronic pain , chronic chest/abdominal pain, presents with chronic left foot pain. Problem: End-stage renal, diabetes, nonadherence with medications, chronic pain, substance abuse, psychiatric illness History: Per patient I have considered the following differential diagnoses: Cellulitis, purulent cellulitis, osteomyelitis, gangrene, medication seeking behavior Plan: Screening labs including an x-ray of the foot were obtained from triage, there was no osteomyelitis, there was no evidence of infection, there was no evidence of acute infection on exam. The patient sadly exhibits medication seeking behavior during her frequent ED visits, often having negative assessments. I will medicate her with a her prescribed chronic pain medication, and her blood pressure medication. She is known to be nonadherent with taking her medications at home. I have independently reviewed the following tests: Labs: No leukocytosis, stable anemia, no electrolyte abnormality, creatinine elevated as expected, X-ray left foot:Findings: No acute fracture or dislocation identified. Status post amputation of all 5 digits. Surgical bed is unchanged from prior study. No acute bony erosions are identified. Degenerative change in the tarsals. Impression: No acute bony abnormality Lab Data 07/21/24 16:26 07/21/24 16:26 Labs: Lab Results 07/21/24 Range/Units 16:26 WBC 5.0 (4.8-10.8) X10*3/uL RBC 3.27 L (4.20-5.50) X10*6/uL Hgb 9.6 L (12.0-16.0) g/dl Hct 28.7 L (37.0-47.0) % MCV 87.8 (80.0-98.0) fL MCH 29.4 (27.0-33.0) pg MCHC 33.4 (31.0-35.0) g/dl RDW 15.8 (11.0-16.0) % Plt Count 120 L (160-400) X10*3/uL MPV 11.4 (9.4-12.3) fL Immature Gran % (Auto) 0.2 (0.0-0.4) % Neut % (Auto) 67.6 (45-73) % Lymph % (Auto) 17.0 L (20-40) % [place] % (Auto) 9.2 (2-11) % Eos % (Auto) 5.6 H (0-4) % Baso % (Auto) 0.4 (0-2) % Lymph # (Auto) 0.9 L (1.2-4.9) X10*3/uL [place] # (Auto) 0.5 (0.1-1.2) X10*3/uL Eos # (Auto) 0.3 (0.0-0.4) X10*3/uL Baso # (Auto) 0.0 (0.0-0.2) X10*3/uL Abs Immat Gran (auto) 0.01 (0.00-0.03) X10*3/uL Absolute Neuts (auto) 3.4 (2.0-8.3) x10*3/uL Absolute Nucleated RBC 0.000 (0.0-0.012) X10*3/uL Nucleated RBC % (auto) 0.0 (0.0-0.2) /100WBC Sodium 140 (135-145) mmol/L Potassium 4.0 (3.3-5.1) mmol/L Chloride 101 (96-108) mmol/L Carbon Dioxide 23 (22-29) mmol/L Anion Gap 20 (12-20) BUN 75 H (9-16) mg/dL Creatinine 8.47 H* (0.5-1.4) mg/dL Estim Creat Clear Calc 10.1 Estimated GFR 5 Random Glucose 89 (60-115) mg/dL Calcium 8.7 D (8.4-10.2) mg/dL Total Bilirubin 1.0 (0.0-1.0) mg/dL AST 28 (5-31) U/L ALT < 6 (0-31) U/L Alkaline Phosphatase 179 H (39-117) U/L Total Protein 8.2 H (6.5-8.0) g/dL Albumin 4.0 (3.5-5.0) g/dL Discharge Plan Discharge Clinical Impression: Chronic leg pain Patient Disposition: Home, Self-Care Instructions: Chronic Pain (ED) Additional Instructions: The x-ray of your left foot reveals no acute infection, your labs are normal for you. There is no acute infection today. Continue to follow up with your healthcare providers Prescriptions: No Action carvedilol 12.5 mg Tablet 12.5 mg PO BID 90 Days Qty: 180 0RF Protocol: Hold for SBP/HR < HOLD for SBP < : 90 HOLD for HR < : 60 hydralazine 50 mg Tablet 50 mg PO TID 90 Days Qty: 270 0RF Protocol: Hold for SBP< HOLD for SBP < : 90 acetaminophen 325 mg tablet 650 mg PO Q4H PRN (Reason: mild pain) oxycodone 5 mg tablet 5 mg PO Q8H PRN (Reason: Pain) cefazolin 2 gram recon soln 2 g IV ./ and Sun Rx Instructions: 2 g cefazolin IV Sunday and Sunday post hemodialysis, end date July 11 polyethylene glycol 3350 [Miralax] 17 gram/dose powder 17 g PO BID Qty: 238 0RF docusate sodium [Colace] 100 mg capsule 100 mg PO BID Qty: 14 0RF lidocaine 5 % adhesive patch,medicated 1 patch topical DAILY PRN (Reason: Pain) nitroglycerin 0.4 mg tablet, sublingual 0.4 mg sublingual DIRECTED PRN (Reason: Angina) albuterol sulfate [Ventolin HFA] 90 mcg/actuation HFA aerosol inhaler 2 puff inhalation Q6H PRN (Reason: wheezing) calcium carbonate [Tums] 200 mg calcium (500 mg) Tablet,Chewable 200 mg PO TIDWM ondansetron 4 mg tablet,disintegrating 4 mg PO Q8H PRN (Reason: nausea and vomiting) Qty: 12 0RF Print Language: Azeri
[2024-07-21] MEDS: oxyCODONE HCl Immed Release 5 MG TABLET PO (18:44)
[2024-07-21] MEDS: carvediloL 12.5 MG TABLET PO (18:44)
[2024-07-21] MEDS: hydrALAZINE HCl 50 MG TABLET PO (18:44)
[2024-07-21 19:41] VITALS: BP 207/110; PULSE 86; RESP 20; TEMP 36.6; O2SAT 91
== END 2024-07-21 19:46 | disposition home or self-care (01) ==
PROVIDERS: Emergency Provider Emergency Medicine
DX: G89.29 Other chronic pain (principal); M79.605 Pain in left leg; E11.22 Type 2 diabetes mellitus with diabetic chronic kidney disease; I13.2 Hypertensive heart and chronic kidney disease with heart failure and with stage 5 chronic kidney disease, or end stage renal disease; I50.9 Heart failure, unspecified; N18.6 End stage renal disease; N17.9 Acute kidney failure, unspecified; Z99.2 Dependence on renal dialysis; Z91.158 Patient's noncompliance with renal dialysis for other reason; Z79.899 Other long term (current) drug therapy
CPT/HCPCS: 36415; 73630; 80053; 85025; 99283; 99284

== ENCOUNTER → 2024-07-21 16:20 | Outpatient (BNV) | payer OTHER, SELFPAY | PROVIDERS: Visit Provider Radiology Diagnostic Radiology | DX: M79.672 Pain in left foot (principal) | CPT/HCPCS: 73630 ==

== ENCOUNTER 2024-07-31 10:17 | Inpatient (IN) | payer OTHER, SELFPAY ==
[2024-07-31] VITALS (7 sets, daily range): BP systolic 166–184; BP diastolic 73–90; PULSE 96–111; RESP 16–28; TEMP 37.6–38.9; O2SAT 91–99; BMI 36.7; BMI 33.1
--- NOTE | ~2024-07-31 | XR_ITS ---
EXAMINATION: XR CHEST CLINICAL INFORMATION: hypoxia COMPARISON: 07/11/2024. TECHNIQUE: Frontal view of the chest was obtained. FINDINGS: There is a right IJ central venous catheter/dialysis catheter with tip in the right atrium. There is cardiomegaly. Mediastinal and hilar contours appear normal. The lungs appear clear bilaterally. No pneumothorax or effusion. No focal osseous or soft tissue abnormality. XR/XR chest 1V IMPRESSION: 1. Right IJ central venous catheter in stable position. 2. Cardiomegaly. 3. No active pulmonary disease. Electronically signed by: Damon Alanis MD 07/31/2024 11:56 AM EDT
--- NOTE | 2024-07-31 10:27 | ECG_ITS ---
Test Reason : SEPSIS Blood Pressure : */* mmHG Vent. Rate : 112 BPM Atrial Rate : 112 BPM P-R Int : 146 ms QRS Dur : 134 ms QT Int : 378 ms P-R-T Axes : 50 -38 30 degrees QTcB Int : 515 ms Artifact in tracing Sinus tachycardia Left axis deviation Right bundle branch block Abnormal ECG When compared with ECG of 12-Jul-2024 17:47, No significant changes seen Referred By: Kasia Ramirez Electronically Signed By: JASKARAN COOL
--- NOTE | 2024-07-31 10:31 | ED_ITS ---
HPI - General Adult General Chief complaint: General Medical Stated complaint: AMS,VOMIT X 1,SHAKY Time Seen by Provider: 07/31/24 10:24 Source: EMS, RN notes reviewed and old records reviewed Mode of arrival: EMS Limitations: altered mental status History of Present Illness ED Provider: Eric Ramirez PA-C HPI narrative: 33-year-old female with history of ESRD on HD T/Th/Sun, DM with polyneuropathy, retinopathy and blindness, PAD s/p bilateral TMA, HTN with history of HTN emergency due to medication noncompliance, chronic hypoxic respiratory failure on 3-4L NC, mood disorder, HFrEF, chronic pain on chronic opiates, recent admission to [facility] (07/03-07/07) for recurrent syncope, 3 of multiple line infections with MSSA, stenotrophomonas, Pseudomonas, group B strep in the past who presents to the ER for evaluation of shaking, bilious vomiting, confusion that started this morning per family. On EMS arrival patient was found to be he saturating in the high 80s, with shaking chills, she had 1 episode of bilious vomiting that was witnessed. She was confused. Systolic blood pressure was in the 180s. She was warm to touch. She was groaning in pain but would not localized. She was brought to the ER for further evaluation MD complaint: AMS, vomiting Onset (ago): hour(s) Related Data Home Medications ?Medication ?Instructions ?Recorded ?Confirmed albuterol sulfate 90 mcg/actuation 2 puff inhalation Q6H PRN wheezing 01/15/24 07/03/24 aerosol inhaler (Ventolin HFA) lidocaine 5 % topical patch 1 patch topical DAILY PRN Pain 01/15/24 07/03/24 nitroglycerin 0.4 mg sublingual 0.4 mg sublingual DIRECTED PRN 01/15/24 07/03/24 tablet Angina acetaminophen 325 mg tablet 650 mg PO Q4H PRN mild pain 03/11/24 07/03/24 oxycodone 5 mg tablet 5 mg PO Q8H PRN Pain 05/25/24 07/03/24 calcium carbonate (Tums) 200 mg PO TIDWM 07/03/24 07/03/24 Previous Rx's ?Medication ?Instructions ?Recorded carvedilol 12.5 mg tablet 12.5 mg PO BID 90 days #180 tabs 12/16/23 hydralazine 50 mg tablet 50 mg PO TID 90 days #270 tabs 12/16/23 cefazolin 2 gram intravenous 2 g IV . and 06/03/24 solution ondansetron 4 mg disintegrating 4 mg PO Q8H PRN nausea and 07/06/24 tablet vomiting #12 tabs docusate sodium 100 mg capsule 100 mg PO BID #14 caps 07/19/24 (Colace) polyethylene glycol 3350 17 17 g PO BID #238 grams 07/19/24 gram/dose oral powder (Miralax) Allergies Allergy/AdvReac Type Severity Reaction Status Date / Time morphine [MORPHINE] Allergy Intermediate Itching Verified 07/31/24 10:29 azithromycin [From Zithromax] Allergy Hives Verified 07/31/24 10:29 gabapentin Allergy Facial Verified 07/31/24 10:29 Swelling tramadol Allergy Facial Verified 07/31/24 10:29 Swelling vancomycin Allergy Anaphylaxis Verified 07/31/24 10:29 Review of Systems 2 Review of Systems: Yes Unobtainable due to mental condition and Unobtainable due to mental status [facility] Past Medical History Medical History ESRD (end stage renal disease) Hypotonic neurogenic bladder Diabetic polyneuropathy ESRD (end stage renal disease) on dialysis Hypertensive emergency Non-compliance with renal dialysis Decompensated heart failure Congestive heart failure Renal failure Hypertension, uncontrolled Medical non-compliance Pericarditis Unspecified hypertension, condition or complication Metabolic acidosis Gastroparesis End stage chronic kidney disease Chronic kidney disease Anemia Chronic foot ulcer Plantar ulcer of left foot Major depressive disorder, single episode, severe Non-compliance with renal dialysis Hypertensive urgency MDD (major depressive disorder), recurrent episode MDD (major depressive disorder) Renal failure Foot ulcer CKD (chronic kidney disease) Hypertension Diabetic foot Hyperkalemia Vomiting Renal failure Hypertension Migraine Chronic pain ESRD on dialysis Non-compliance with renal dialysis Hypertension End-stage renal disease (ESRD) Diabetic foot ulcer associated with type 2 diabetes mellitus Diabetes ESRD needing dialysis Cardiomyopathy HFrEF (heart failure with reduced ejection fraction) delivery delivered Anemia in chronic kidney disease (CKD) CKD (chronic kidney disease) Headache, migraine Abnormal finding on echocardiogram Elevated troponin Chest pain Acute worsening of stage 3 chronic kidney disease Generalized edema Sepsis Cellulitis Pleural effusion CHF (congestive heart failure) (~06/07/22) Tachycardia Atypical chest pain Bone infection PAD (peripheral artery disease) Severe anemia Cellulitis and abscess of foot DM foot ulcer Osteomyelitis Asthma Depression with anxiety Diabetic retinopathy Type 2 diabetes mellitus with hyperglycemia, with long-term current use of insulin Blind right eye Diabetes Back pain Surgical History Tubal ligation status Previous section Hx laparoscopic cholecystectomy Hx of surgical procedure (~09/11/23) 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 Family History Family History Mother Coronary artery disease Myocardial infarction Stroke Diabetes mellitus Father Myocardial infarction Social History Social History Household Members: Family Household Members Other:: sister Housing: Apartment Are you a primary wound care center consultant to a significant other at home: No Do you presently have visiting nurse or other home services: No Unable to assess alcohol history related to: Unknown Alcohol intake: never Comment: Patient refusing assistance OOB and alarms as well as camera despite educat Patient Tobacco Use Status: Never used Tobacco e-Cigarette/Vaping Use: Never Used Second Hand Smoke Exposure: No Advance Directives: Yes Advance Directives on File: Yes Advance Directives Date on File: 09/04/23 Do you have a plan to hurt others: No Plan service: No Current occupational status: unemployed and disabled Gender identity: Female Physical Exam ED Vital Signs: Vital Signs - 24 hr 07/31/24 10:27 07/31/24 11:25 Temperature 100 F Pulse Rate 111 H 105 H Respiratory Rate 28 H 19 Blood Pressure 166/73 H Pulse Oximetry 91 L 99 Oxygen Delivery Method Nasal Cannula Nasal Cannula Oxygen Flow Rate 2 BMI result Body Mass Index 36.7 Appearance: Alert. Oriented X1. Groaning in pain, not answering questions appropriately Head: normocephalic, atraumatic. Eyes: hazy corneas, unable to assess pupilary response, no periorbital swelling ENT: Pharynx normal. No tonsillar swelling or exudate. Neck: Normal inspection. Neck supple. right permcath in place with associated tenderness and mild erythema CVS: Normal heart rate and rhythm. Pulses normal. Respiratory: Mild respiratory distress with increased RR high 20s. Breath sounds normal. Abdomen: Soft and nontender. +BS x4 Skin: Skin warm and dry. Normal skin color. Normal skin turgor. No rashes. Extremities: No lower extremity edema. No joint swelling. Status post TMA bilaterally with a wound on the plantar aspect of the left foot without any foul drainage. Wound on the right foot is without any drainage or openings see photos below Neuro/psych: Oriented X 1, disoriented to place and time, moving all extremities, answering simple questions and following simple commands, grossly nonfocal CN II-XII intact. Delirious Medications Administered Discontinued Medications Generic Name Dose Route Start Last Admin Trade Name Freq PRN Reason Stop Dose Admin Diphenhydramine HCl 50 mg 07/31/24 11:47 07/31/24 11:58 Diphenhydramine Hcl 50 Mg/Ml Vial IVPUSH 07/31/24 11:48 50 mg ONCE ONE Administration Hydromorphone HCl 1 mg 07/31/24 11:46 07/31/24 11:58 Hydromorphone Hcl 1 Mg/Ml Syringe IVPUSH 07/31/24 11:47 1 mg ONCE ONE Administration Protocol Cefepime HCl 1 gm/ Sodium 50 mls @ 100 mls/hr 07/31/24 10:35 07/31/24 12:10 Chloride IV 07/31/24 11:04 Infused ONCE ONE Infusion Acetaminophen 1,000 mg in 100 mls @ 400 mls/hr 07/31/24 11:03 07/31/24 11:40 Ofirmev IV 07/31/24 11:17 Infused ONCE ONE Infusion Medical Decision Making Medical Decision Making MDM Narrative: 33-year-old female with history of ESRD on HD T//Sun, DM with polyneuropathy, retinopathy and blindness, PAD s/p bilateral TMA, HTN with history of HTN emergency due to medication noncompliance, chronic hypoxic respiratory failure, mood disorder, HFrEF, chronic pain on chronic opiates, recent admission to [facility] for recurrent syncope, hx recurrent line infections (MSSA, PSA, stenotrophomonas), hx Group B strep bacterremia in April due to foot wounds presenting with AMS, shaking chills and vomiting. She is confused and disoriented on arrival. Hypertensive and tachycardic. Will not localize pain. Basic lab workup started. 10:35 - informed of rectal temp of 101.9 degrees. Concern for infection at this time. HD line vs foot wounds. Cefepime was ordered along with daptomycin x1. Wilbert texted Dr. Diallo for recs, spoke with pharmacy to confirm dosing. will hold off on IVF right now given hypoxia and concern for possible pulmonary edema, hx CHF. she is hypertensive 12:04 - lactic acid 2.6. 500cc IVF ordered. will need to be cautious with IVF given her history. spoke with Nephrology who was hoping to perform a 2 hour HD session before pulling her line. ID would like the line removed today. Her labs are stable. troponin 70 which is her baseline. She is oxygenating well on her baseline oxygen. Symptoms are improved after Benadryl and Dilaudid. Will plan to admit to the hospital for further management Differential Diagnosis Differential Diagnoses: The differential diagnosis associated with the presentation includes Sepsis secondary to bacteremia due to PermCath infection, pneumonia, diabetic wound infection of her feet Admission/Observation Consideration of admission/observation: Escalation of care including admission/observation considered Consult Healthcare Provider Management of the patient was discussed with: Hospitalist and Anesthesiologist Assistant Dr. Liat Hull Lab Data [facility] Lab Attestation statement: I reviewed the patient's lab results. No leukocytosis, thrombocytopenia which is chronic, chronically elevated BUN and creatinine due to end-stage renal disease, her BUN is at her baseline 07/31/24 10:42 07/31/24 10:42 Labs: Lab Results 07/31/24 07/31/24 Range/Units 10:42 10:50 WBC 8.4 (4.8-10.8) X10*3/uL RBC 2.65 L (4.20-5.50) X10*6/uL Hgb 8.0 L (12.0-16.0) g/dl Hct 24.6 L (37.0-47.0) % MCV 92.8 (80.0-98.0) fL MCH 30.2 (27.0-33.0) pg MCHC 32.5 (31.0-35.0) g/dl RDW 17.9 H (11.0-16.0) % Plt Count 152 L D (160-400) X10*3/uL MPV 11.8 (9.4-12.3) fL Immature Gran % (Auto) 0.5 H (0.0-0.4) % Neut % (Auto) 81.4 H (45-73) % Lymph % (Auto) 6.9 L (20-40) % [place] % (Auto) 8.9 (2-11) % Eos % (Auto) 1.9 (0-4) % Baso % (Auto) 0.4 (0-2) % Lymph # (Auto) 0.6 L (1.2-4.9) X10*3/uL [place] # (Auto) 0.7 (0.1-1.2) X10*3/uL Eos # (Auto) 0.2 (0.0-0.4) X10*3/uL Baso # (Auto) 0.0 (0.0-0.2) X10*3/uL Abs Immat Gran (auto) 0.04 H (0.00-0.03) X10*3/uL Absolute Neuts (auto) 6.8 (2.0-8.3) x10*3/uL Absolute Nucleated RBC 0.000 (0.0-0.012) X10*3/uL Nucleated RBC % (auto) 0.0 (0.0-0.2) /100WBC VBG pH 7.40 (7.32-7.43) VBG pCO2 37 mmHg VBG pO2 53 mmHg VBG HCO3 23 (22-26) mmol/L VBG O2 Saturation 75.0 % VBG Base Excess -0.4 mmol/L Sodium 141 (135-145) mmol/L Potassium 4.8 (3.3-5.1) mmol/L Chloride 102 (96-108) mmol/L Carbon Dioxide 23 (22-29) mmol/L Anion Gap 21 H (12-20) BUN 73 H (9-16) mg/dL Creatinine 9.56 H* (0.5-1.4) mg/dL Estim Creat Clear Calc 8.5 Estimated GFR 5 Random Glucose 84 (60-115) mg/dL Lactic Acid 2.6 H* (0.5-2.0) mmol/L Calcium 8.4 (8.4-10.2) mg/dL Magnesium 2.1 (1.6-2.6) mg/dL Total Bilirubin 1.3 H (0.0-1.0) mg/dL Direct Bilirubin 0.6 H (0.0-0.5) mg/dL AST 25 (5-31) U/L ALT 13 (0-31) U/L Alkaline Phosphatase 225 H (39-117) U/L Troponin I High Sens 72.6 H* (<3.5-17.0) ng/L C-Reactive Protein 3.01 H (< or = 0.50) mg/dL B-Natriuretic Peptide 3098 H (<100) pg/mL Total Protein 7.9 (6.5-8.0) g/dL Albumin 3.9 (3.5-5.0) g/dL Ethyl Alcohol < 10 mg/dL Influenza Type A (PCR) NEGATIVE (Negative) Influenza Type B (PCR) NEGATIVE (Negative) RSV RNA Qual (PCR) NEGATIVE (Negative) SARS-CoV-2 RNA (RT-PCR) NEGATIVE (Negative) Independent Interpretation I performed an independent interpretation of an: EKG and Plain X-Ray Interpretation: X-ray without any focal infiltrate, no significant pleural effusion or evidence of volume overload EKG with sinus tachycardia, ventricular rate 112 beats per minute, right bundle branch block present, similar to prior. QTC prolonged Radiology Impression Discussion of test interpretation with radiology: I have reviewed the radiologist's reading. Radiologist Impression: XR/XR chest 1V IMPRESSION: 1. Right IJ central venous catheter in stable position. 2. Cardiomegaly. 3. No active pulmonary disease. Independent Historian Clinical information obtained from an independent historian. History obtained from or confirmed by: EMS External Record Review External record reviewed: Inpatient record, Outpatient record, Prior outpatient labs and Prior outpatient radiology Tests considered The following testing was considered but not selected: XR feet considered - if high clinical suspicion for osteo then MRI would be the preferred test inpatient Prescription Management I considered prescription management with: Pain Medication and Antibiotic Chronic Conditions Patient?s care impacted by: Diabetes, Hypertension and Other (ESRD) Social Determinants Patient?s care significantly limited by Social Determinants of Health including: Other Social Determinant of Health (poorly compliant, blind) Critical Care Time Critical Care Time Critical Care Time: Yes Total Critical Care Time: 55 Attestation: I have personally provided critical care time exclusive of time spent on separately billable procedures. Time includes review of lab data, radiology results, discussion with consultants, and monitoring for potential decompensation. Intervention performed as documented. Discharge Plan Discharge Clinical Impression: Chronic ulcer of left foot due to diabetes mellitus, Acute metabolic encephalopathy Sepsis Qualifiers: Sepsis type: sepsis due to unspecified organism Sepsis acute organ dysfunction status: unspecified Qualified Code(s): A41.9 - Sepsis, unspecified organism Patient Disposition: Admitted As Inpatient
[2024-07-31 10:52] LABS: MANUAL DIFF FLAG NO
[2024-07-31 10:54] LABS: VBG Base Excess -0.4 mmol/L; VBG HCO3 23 mmol/L (22-26); VBG pCO2 37 mmHg; VBG pO2 53 mmHg
[2024-07-31 10:55] LABS: Venous Blood Gas Refer to POC result
[2024-07-31 10:55] LABS: Basophils Percent Auto 0.4 % (0-2); Eosinophils Absolute Auto 0.2 X10*3/uL (0.0-0.4); Eosinophils Percent Auto 1.9 % (0-4); Hematocrit 24.6 % (37.0-47.0); Imm Gran Abs Auto 0.04 X10*3/uL (0.00-0.03); Imm Gran Pct Auto 0.5 % (0.0-0.4); Lymphocytes Absolute Auto 0.6 X10*3/uL (1.2-4.9); Lymphocytes Percent Auto 6.9 % (20-40); Mean Corpuscular HGB Conc 32.5 g/dl (31.0-35.0); Mean Corpuscular Hemoglobin 30.2 pg (27.0-33.0); Mean Corpuscular Volume 92.8 fL (80.0-98.0); Mean Platelet Volume 11.8 fL (9.4-12.3); Monocytes Absolute Auto 0.7 X10*3/uL (0.1-1.2); Monocytes Percent Auto 8.9 % (2-11); Neutrophils Absolute Auto 6.8 x10*3/uL (2.0-8.3); Neutrophils Percent Auto 81.4 % (45-73); Platelet Count 152 X10*3/uL (160-400); Red Blood Count 2.65 X10*6/uL (4.20-5.50); Red Cell Distribution Width 17.9 % (11.0-16.0); White Blood Count 8.4 X10*3/uL (4.8-10.8)
[2024-07-31 11:15] LABS: B Type Natriuretic Peptide 3098 pg/mL (<100)
[2024-07-31 11:16] LABS: Alanine Aminotransferase 13 U/L (0-31); Albumin Level 3.9 g/dL (3.5-5.0); Alkaline Phosphatase 225 U/L (39-117); Anion Gap 21 (12-20); Aspartate Amino Transferase 25 U/L (5-31); Bilirubin Direct 0.6 mg/dL (0.0-0.5); Bilirubin Total 1.3 mg/dL (0.0-1.0); Blood Urea Nitrogen 73 mg/dL (9-16); C Reactive Protein 3.01 mg/dL (< or = 0.50); Calcium 8.4 mg/dL (8.4-10.2); Carbon Dioxide 23 mmol/L (22-29); Chloride 102 mmol/L (96-108); Creatinine Clr Calc Pharmacy 8.5; Estimated Glomerular Filt Rate 5; Glucose Random 84 mg/dL (60-115); Magnesium 2.1 mg/dL (1.6-2.6); Potassium 4.8 mmol/L (3.3-5.1); Sodium 141 mmol/L (135-145); Total Protein 7.9 g/dL (6.5-8.0)
[2024-07-31] MEDS: Acetaminophen 1,000 MG/100 ML PIGGYBACK 400 MG IV (11:16)
[2024-07-31 11:17] LABS: Ethanol < 10 mg/dL; Lactic Acid 2.6 mmol/L (0.5-2.0)
[2024-07-31 11:18] LABS: Troponin-I High Sensitivity 72.6 ng/L (<3.5-17.0)
[2024-07-31] MEDS: cefEPime HCl 1 GM in 0.9 % Sodium Chloride 50 ML IV (11:20)
[2024-07-31] MEDS: diphenhydrAMINE HCL 50 MG/ML VIAL IVPUSH (11:58)
[2024-07-31] MEDS: HYDROmorphone HCl 1 MG/ML SYRINGE IVPUSH (11:58)
[2024-07-31 12:05] LABS: Influenza A PCR NEGATIVE (Negative); Influenza B PCR NEGATIVE (Negative); Resp Syncy Virus RNA Qual PCR NEGATIVE (Negative); SARS COV2 PCR INHOUSE NEGATIVE (Negative)
--- NOTE | 2024-07-31 12:33 | PM.IMHP ---
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 Pt initially confused upon presentation to the ED, thinking that she was still at home in her living room. However, pt currently more alert and oriented. Reports has been having shaking chills with nausea, vomiting, and right-sided abdominal pain since last night. SOB at baseline. Denies chest pain/pressure, palpitations. Reports has been compliant with home medication and last went to dialysis on Sunday. In the ED pt was fever of 101.9, tachycardia of 111, tachypnea of 28, hypertension of 166/73, and satting at 91% on 2 L NC. Labs were significant for H&H 8.0/24.6, BUN 73, creatinine 9.56, lactic acid 2.6, T bili 1.3, alk-phos 225, initial troponin 72.6 (similar to previous), CRP 3.01, and BNP 3098 (in line with previous). Tested negative for flu, RSV, and COVID. CXR showed no active pulmonary disease, but showed cardiomegaly and right IJ central venous catheter in stable position. EKG demonstrated sinus tachycardia with RBBB and possible left atrial enlargement, similar to prior. Pt was treated in the ED with acetaminophen, diphenhydramine, 500 mL IVF, Dilaudid, cefepime, and daptomycin. ED clinician reached out to ID treated with IV antibiotics and removing patient's line today. Also reached out to Nephrology who would like to perform a 2 hour HD session prior to line being pulled. Pt is admitted to the hospital for treatment and further evaluation of acute metabolic encephalopathy in the setting of likely catheter line infection with sepsis. Review of Systems Review of Systems: Negative except for that which is stated in the HPI. [facility] Medical History ESRD on hemodialysis ESRD (end stage renal disease) Hypotonic neurogenic bladder Diabetic polyneuropathy ESRD (end stage renal disease) on dialysis Hypertensive emergency Non-compliance with renal dialysis Decompensated heart failure Congestive heart failure Renal failure Hypertension, uncontrolled Medical non-compliance Pericarditis Unspecified hypertension, condition or complication Metabolic acidosis Gastroparesis End stage chronic kidney disease Chronic kidney disease Anemia Chronic foot ulcer Plantar ulcer of left foot Major depressive disorder, single episode, severe Non-compliance with renal dialysis Hypertensive urgency MDD (major depressive disorder), recurrent episode MDD (major depressive disorder) Renal failure Foot ulcer CKD (chronic kidney disease) Hypertension Diabetic foot Hyperkalemia Vomiting Renal failure Hypertension Migraine Chronic pain ESRD on dialysis Non-compliance with renal dialysis Hypertension End-stage renal disease (ESRD) Diabetic foot ulcer associated with type 2 diabetes mellitus Diabetes ESRD needing dialysis Cardiomyopathy HFrEF (heart failure with reduced ejection fraction) delivery delivered Anemia in chronic kidney disease (CKD) CKD (chronic kidney disease) Headache, migraine Abnormal finding on echocardiogram Elevated troponin Chest pain Acute worsening of stage 3 chronic kidney disease Generalized edema Sepsis Cellulitis Pleural effusion CHF (congestive heart failure) (~06/07/22) Tachycardia Atypical chest pain Bone infection PAD (peripheral artery disease) Severe anemia Cellulitis and abscess of foot DM foot ulcer Osteomyelitis Asthma Depression with anxiety Diabetic retinopathy Type 2 diabetes mellitus with hyperglycemia, with long-term current use of insulin Blind right eye Diabetes Back pain Family History Mother Coronary artery disease Myocardial infarction Stroke Diabetes mellitus Father Myocardial infarction Surgical History Tubal ligation status Previous section Hx laparoscopic cholecystectomy Hx of surgical procedure (~09/11/23) 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 Social History Household Members: Family Household Members Other:: sister Housing: Apartment Are you a primary resident care technician to a significant other at home: No Do you presently have visiting nurse or other home services: No Unable to assess alcohol history related to: Unknown Alcohol intake: never Comment: Patient refusing assistance OOB and alarms as well as camera despite educat Patient Tobacco Use Status: Never used Tobacco e-Cigarette/Vaping Use: Never Used Second Hand Smoke Exposure: No Currently Displaying Signs/Symptoms of Drug Intoxication Withdrawal: No Have you been hit, kicked, punched, or otherwise hurt by someone within the past year? If so, by whom?: No Do you feel safe in your current relationship?: Yes Is there a partner from a previous relationship who is making you feel unsafe now?: No Are you made to feel afraid or neglected: No Advance Directives: Yes Advance Directives on File: Yes Advance Directives Date on File: 09/04/23 Do you have a plan to hurt others: No Plan Recently lost weight without trying: No Nutrition Risks: No Nutritional Risk Patient : No : No service: No Current occupational status: unemployed and disabled Gender identity: Female Meds Allergies Allergy/AdvReac Type Severity Reaction Status Date / Time morphine [MORPHINE] Allergy Intermediate Itching Verified 07/31/24 10:29 azithromycin [From Zithromax] Allergy Hives Verified 07/31/24 10:29 gabapentin Allergy Facial Verified 07/31/24 10:29 Swelling tramadol Allergy Facial Verified 07/31/24 10:29 Swelling vancomycin Allergy Anaphylaxis Verified 07/31/24 10:29 Active Medications: Current Medications Lactated Ringer's (Lr) 500 mls @ 999 mls/hr IV .Q31M VASILE Stop: 07/31/24 13:00 Home Medications ?Medication ?Instructions ?Recorded ?Confirmed ?Last Taken ?Type albuterol sulfate 90 mcg/actuation 2 puff inhalation Q6H PRN wheezing 01/15/24 07/31/24 Unknown History aerosol inhaler (Ventolin HFA) lidocaine 5 % topical patch 1 patch topical DAILY PRN Pain 01/15/24 07/31/24 02/24/24 History nitroglycerin 0.4 mg sublingual 0.4 mg sublingual DIRECTED PRN 01/15/24 07/31/24 Unknown History tablet Angina acetaminophen 325 mg tablet 650 mg PO Q4H PRN mild pain 03/11/24 07/31/24 Unknown History oxycodone 5 mg tablet 5 mg PO Q8H PRN Pain 05/25/24 07/31/24 06/25/24 History calcium carbonate (Tums) 200 mg PO TIDWM 07/03/24 07/31/24 Unknown History docusate sodium 100 mg capsule 100 mg PO BID PRN Constipation 07/31/24 07/31/24 Unknown History (Colace) polyethylene glycol 3350 17 17 g PO BID PRN Constipation 07/31/24 07/31/24 Unknown History gram/dose oral powder (Miralax) Physical Exam Vital Signs and Narrative: Vital Signs: Last Vital Signs Temp 100 F 07/31/24 10:27 Pulse 105 H 07/31/24 11:25 Resp 19 07/31/24 11:25 BP 166/73 H 07/31/24 10:27 Pulse Ox 99 07/31/24 11:25 O2 Del Method Nasal Cannula 07/31/24 11:25 O2 Flow Rate 2 07/31/24 11:25 Oxygen Flow Rate 2 07/31/24 10:27 BMI result Body Mass Index 36.7 General: AOx3, no acute distress. Pt blind. Resp: CTA bilaterally CVS: S1, S2, RRR GI: +BS, no distention, right-sided tenderness without guarding or rebound tenderness Skin: Warm, dry. HD catheter without purulence. Neuro: Cranial nerves II-XII grossly intact bilaterally. Motor grossly intact bilaterally Extremities: No edema. Bilateral TMA. Chronic bilateral foot ulcers without obvious signs of infection. See ED visit chart for pictures. Psych: Appropriate affect Results Labs 08/01/24 06:47 08/01/24 06:47 Labs: Laboratory Results - last 24 hr 07/31/24 07/31/24 10:42 10:50 MCV 92.8 MCH 30.2 MCHC 32.5 RDW 17.9 H Plt Count 152 L D MPV 11.8 Immature Gran % (Auto) 0.5 H Neut % (Auto) 81.4 H Lymph % (Auto) 6.9 L Owsley % (Auto) 8.9 Eos % (Auto) 1.9 Baso % (Auto) 0.4 Lymph # (Auto) 0.6 L Owsley # (Auto) 0.7 Eos # (Auto) 0.2 Baso # (Auto) 0.0 Abs Immat Gran (auto) 0.04 H Absolute Neuts (auto) 6.8 Absolute Nucleated RBC 0.000 Nucleated RBC % (auto) 0.0 VBG pH 7.40 VBG pCO2 37 VBG pO2 53 VBG HCO3 23 VBG O2 Saturation 75.0 VBG Base Excess -0.4 Anion Gap 21 H Estim Creat Clear Calc 8.5 Estimated GFR 5 Random Glucose 84 Lactic Acid 2.6 H* Calcium 8.4 Magnesium 2.1 Total Bilirubin 1.3 H Direct Bilirubin 0.6 H AST 25 ALT 13 Alkaline Phosphatase 225 H Troponin I High Sens 72.6 H* C-Reactive Protein 3.01 H B-Natriuretic Peptide 3098 H Total Protein 7.9 Albumin 3.9 Ethyl Alcohol < 10 Influenza Type A (PCR) NEGATIVE Influenza Type B (PCR) NEGATIVE RSV RNA Qual (PCR) NEGATIVE SARS-CoV-2 RNA (RT-PCR) NEGATIVE Imaging Radiologist's Impressions: Impressions Chest X-Ray 07/31/24 10:34 IMPRESSION: 1. Right IJ central venous catheter in stable position. 2. Cardiomegaly. 3. No active pulmonary disease. 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 Pt is admitted to the hospital for treatment and further evaluation of acute metabolic encephalopathy in the setting of likely catheter line infection with sepsis. Acute metabolic encephalopathy in the setting of likely dialysis catheter line infection with sepsis Pt with confusion, shaking chills, N/V/abd pain since last night Hx of multiple line infections with baceremia Meets sepsis criteria with fever, tachycardia, and tachypnea; initial lactic acid 2.6 with repeat 0.6 Pt given IVF and started on broad-spectrum antibiotics in the ED Will treat with cefepime and daptomycin, started 07/31/2024 Infectious disease consulted, would like catheter line removed today Plan is to replace dialysis catheter on Friday 08/04 Follow line and blood cultures ESRD on HD //Sun Nephrology consult, follows with [facility] Follow BMP Monitor on telemetry Elevated troponin Initial troponin 72.6, in line with previous Pt with chronically elevated troponins No signs of ACS Monitor on telemetry Oew-jcivrvn-vplzvujuc type 2 diabetes With diabetic polyneuropathy/retinopathy Place on sliding scale insulin, diabetic diet HTN Continue carvedilol, hydralazine Chronic hypoxemic respiratory failure Not in acute exacerbation Pt on 3-4 L NC at home HRrEF Continue carvedilol Treat with dialysis as above Chronic pain with opioid seeking behavior Continue home oxycodone Avoid Dilaudid IV as much as possible Full Code Attending:?Dr. Blanton DVT Prophylaxis: Pneumatic compression due to line replacement Pt will require a hospitalization of at least two nights for treatment of?acute metabolic encephalopathy likely from infected dialysis catheter with sepsis. Pt will require hospital level care for administration of IV antibiotics close monitoring of mentation and labs due to ESRD, and eventual line replacement after a short line holiday. Quality Stroke Does the patient have a stroke diagnosis?: No VTE Prior VTE?: No VTE Risk Level:: Medical - moderate - high VTE Device Contraindication: N/A - Device Ordered VTE Drug Contraindication: Treatment Not Indicated
[2024-07-31] MEDS: Lactated Ringers 500 ML 999 ML IV (12:41)
[2024-07-31 12:50] LABS: Reflex Lactate? Lactic Acid Added
--- NOTE | 2024-07-31 13:00 | PC.NURSE ---
(@1200) Pharmacy contacted for daptomycin dose, awaiting arrival. Pt resting in bed, call moore in hand.
--- OUTSIDE RECORDS SUMMARY | 2024-07-31 13:40 | XMS_ITS | Encounter Summary ---
Author Organization [employer] Address [address] [place] [address] Care Team Providers Care Senior Group Manager Name Role Phone Genevieve Gtz MD Primary Care Pro vider Reason for Visit * Reason Comments Med Refill Encounter Details Date Type Department Care Team (Late st Contact Info) Description 08/26/2023 Refill [facility] [address] [place], [place] [phone] Genevieve Gtz MD [address] [place], [place] [phone] Benign essential hypertension Social History Tobacco Use [...] Clinical Support [facility] [address] [place] [address] Paola Thurston, KIRIT [address] [place], [place] [phone] 09/26/2024 1:30 PM EDT Office Visit [facility] [address] [place] [address] Genevieve Gtz MD [address] [place] [address] documented as of this encounter Goals Goal [...] documented as of this encounter Care Teams Senior Group Manager Relationship Specialty Start Date End Date Genevieve Gtz MD [address] [place], [place] [phone] PCP - General Internal Medicine 10/12/22 documented as of this encounter
[2024-07-31 13:51] LABS: ~Lactic Acid-LAB USE ONLY 0.6 mmol/L (0.5-2.0)
[2024-07-31] MEDS: SODIUM CHLORIDE 0.9% IV (16:18)
[2024-07-31] MEDS: DAPTOMYCIN IV (16:18)
[2024-07-31] MEDS: 0.9 % Sodium Chloride Flush 3 ML SYRINGE IVFLUSH ×2 (16:21→21:56)
[2024-07-31] MEDS: ondansetron HCL 4 MG/2 ML VIAL IVPUSH ×2 (16:59→22:24)
[2024-07-31] MEDS: HYDROmorphone HCl 0.5 MG/0.5 ML SYRINGE IVPUSH ×2 (16:59→21:56)
--- NOTE | 2024-07-31 17:38 | PC.NURSE ---
Pt done with dialysis at 1600; BP after dialysis 184/90 manually; T 102.0 rectally; Pain 10/10; N/V reported; MD Dr. Blanton made aware, Pain and nausea meds ordered; This RN attempted to give PO PRN Tylenol for fever, however pt refused; MD aware. Pt was scheduled to have dialysis cath removed, per Dr. Blanton, procedure to be canceled;
--- NOTE | 2024-07-31 17:58 | PHA.MEDREC ---
Addendum entered by Maulik Goodman [facility] 07/31/24 18:15: Reviewed by [facility] Original Note: Pharmacy Consult ? Medication Reconciliation Pharmacy has completed the medication reconciliation. Spoke with pt and she was a bit agitated when I was speaking with her but she was able to confirm she finished the Cefazolin Iv regimen was finished around 07/10-07/11, the discharge packet from 07/07 is up to date and there were no changes, she is still taking Carvedilol 12.5mg tabs BID and Hydralazine 50mg tabs TID and then this is when she started getting upset and was not able to provide the last time she took her medications.
--- NOTE | 2024-07-31 23:12 | P.CONNP_ITS ---
History of Present Illness Reason for Consult Consult date: 07/31/24 Chief Complaint Chief complaint: AMS ?Line Infection History of Present Illness Narrative: [facility] consulted for ESRD and HD management admitted for sepsis , suspected line infection, with fever and chills PMH as noted below PMFSH Past Medical History Medical History ESRD on hemodialysis ESRD (end stage renal disease) Hypotonic neurogenic bladder Diabetic polyneuropathy ESRD (end stage renal disease) on dialysis Hypertensive emergency Non-compliance with renal dialysis Decompensated heart failure Congestive heart failure Renal failure Hypertension, uncontrolled Medical non-compliance Pericarditis Unspecified hypertension, condition or complication Metabolic acidosis Gastroparesis End stage chronic kidney disease Chronic kidney disease Anemia Chronic foot ulcer Plantar ulcer of left foot Major depressive disorder, single episode, severe Non-compliance with renal dialysis Hypertensive urgency MDD (major depressive disorder), recurrent episode MDD (major depressive disorder) Renal failure Foot ulcer CKD (chronic kidney disease) Hypertension Diabetic foot Hyperkalemia Vomiting Renal failure Hypertension Migraine Chronic pain ESRD on dialysis Non-compliance with renal dialysis Hypertension End-stage renal disease (ESRD) Diabetic foot ulcer associated with type 2 diabetes mellitus Diabetes ESRD needing dialysis Cardiomyopathy HFrEF (heart failure with reduced ejection fraction) delivery delivered Anemia in chronic kidney disease (CKD) CKD (chronic kidney disease) Headache, migraine Abnormal finding on echocardiogram Elevated troponin Chest pain Acute worsening of stage 3 chronic kidney disease Generalized edema Sepsis Cellulitis Pleural effusion CHF (congestive heart failure) (~06/07/22) Tachycardia Atypical chest pain Bone infection PAD (peripheral artery disease) Severe anemia Cellulitis and abscess of foot DM foot ulcer Osteomyelitis Asthma Depression with anxiety Diabetic retinopathy Type 2 diabetes mellitus with hyperglycemia, with long-term current use of insulin Blind right eye Diabetes Back pain Family History Family History Mother Coronary artery disease Myocardial infarction Stroke Diabetes mellitus Father Myocardial infarction Surgical History Surgical History Tubal ligation status Previous section Hx laparoscopic cholecystectomy Hx of surgical procedure (~09/11/23) 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 Social History Social History Household Members: Family Household Members Other:: sister Housing: Apartment Are you a primary child care nurse to a significant other at home: No Do you presently have visiting nurse or other home services: No Unable to assess alcohol history related to: Unknown Alcohol intake: never Comment: Patient refusing assistance OOB and alarms as well as camera despite educat Patient Tobacco Use Status: Never used Tobacco e-Cigarette/Vaping Use: Never Used Second Hand Smoke Exposure: No Currently Displaying Signs/Symptoms of Drug Intoxication Withdrawal: No Have you been hit, kicked, punched, or otherwise hurt by someone within the past year? If so, by whom?: No Do you feel safe in your current relationship?: Yes Is there a partner from a previous relationship who is making you feel unsafe now?: No Are you made to feel afraid or neglected: No Advance Directives: Yes Advance Directives on File: Yes Advance Directives Date on File: 09/04/23 Do you have a plan to hurt others: No Plan Recently lost weight without trying: No Nutrition Risks: No Nutritional Risk Patient : No : No service: No Current occupational status: unemployed and disabled Gender identity: Female Meds Allergies Allergy/AdvReac Type Severity Reaction Status Date / Time morphine [MORPHINE] Allergy Intermediate Itching Verified 07/31/24 10:29 azithromycin [From Zithromax] Allergy Hives Verified 07/31/24 10:29 gabapentin Allergy Facial Verified 07/31/24 10:29 Swelling tramadol Allergy Facial Verified 07/31/24 10:29 Swelling vancomycin Allergy Anaphylaxis Verified 07/31/24 10:29 Active Medications: Current Medications Acetaminophen (Acetaminophen 325 Mg Tablet) 650 mg PO Q6H PRN PRN Reason: Pain, Mild 1-3,fever,headache Calcium Carbonate (Calcium Carbonate 750 Mg Tab.Chew) 750 mg PO Q4H PRN PRN Reason: Heartburn Hydromorphone HCl (Hydromorphone Hcl 0.5 Mg/0.5 Ml Syringe) 0.5 mg IVPUSH Q4H PRN; Protocol PRN Reason: Pain, Severe (Pain Scale 7-10) Last Admin: 07/31/24 21:56 Dose: 0.5 mg Daptomycin 600 mg/ Sodium (Chloride) 62 mls @ 100 mls/hr IV SA@1800 VASILE Daptomycin 400 mg/ Sodium (Chloride) 58 mls @ 100 mls/hr IV TUTH@1800 [facility] Cefepime HCl 1 gm/ Sodium (Chloride) 50 mls @ 100 mls/hr IV Q24H [facility] Magnesium Hydroxide (Milk Of Magnesia 30 Ml Oral.Susp) 30 ml PO DAILY PRN PRN Reason: Constipation Melatonin (Melatonin 3 Mg Tablet) 6 mg PO BEDTIME PRN PRN Reason: Insomnia Ondansetron HCl (Ondansetron Hcl 4 Mg/2 Ml Vial) 4 mg IVPUSH Q8H PRN PRN Reason: Nausea and Vomiting Last Admin: 07/31/24 16:59 Dose: 4 mg Sodium Chloride (0.9 % Sodium Chloride Flush 3 Ml Syringe) 3 ml IVFLUSH QSHIFT VASILE Last Admin: 07/31/24 21:56 Dose: 3 ml Home Medications ?Medication ?Instructions ?Recorded ?Confirmed ?Last Taken ?Type albuterol sulfate 90 mcg/actuation 2 puff inhalation Q6H PRN wheezing 01/15/24 07/31/24 Unknown History aerosol inhaler (Ventolin HFA) lidocaine 5 % topical patch 1 patch topical DAILY PRN Pain 01/15/24 07/31/24 02/24/24 History nitroglycerin 0.4 mg sublingual 0.4 mg sublingual DIRECTED PRN 01/15/24 07/31/24 Unknown History tablet Angina acetaminophen 325 mg tablet 650 mg PO Q4H PRN mild pain 03/11/24 07/31/24 Unknown History oxycodone 5 mg tablet 5 mg PO Q8H PRN Pain 05/25/24 07/31/24 06/25/24 History calcium carbonate (Tums) 200 mg PO TIDWM 07/03/24 07/31/24 Unknown History docusate sodium 100 mg capsule 100 mg PO BID PRN Constipation 07/31/24 07/31/24 Unknown History (Colace) polyethylene glycol 3350 17 17 g PO BID PRN Constipation 07/31/24 07/31/24 Unknown History gram/dose oral powder (Miralax) Physical Exam Vital Signs: Last Vital Signs Temp 101.4 F H 07/31/24 22:15 Pulse 96 07/31/24 20:00 Resp 16 07/31/24 20:00 BP 180/88 H 07/31/24 20:00 Pulse Ox 93 07/31/24 20:00 O2 Del Method Nasal Cannula 07/31/24 20:00 O2 Flow Rate 2 07/31/24 20:00 Oxygen Flow Rate 2 07/31/24 10:27 BMI result Body Mass Index 33.1 cvs: s1s2 Rs; cta Abd; soft Results Lab Results 07/31/24 10:42 07/31/24 10:42 Lab results: Chemistry 07/31/24 10:42 Sodium 141 Potassium 4.8 Carbon Dioxide 23 BUN 73 H Creatinine 9.56 H* Calcium 8.4 Hematology 07/31/24 10:42 WBC 8.4 Hgb 8.0 L Plt Count 152 L D Assessment and Plan (1) ESRD (end stage renal disease): Status: Acute Plan This has a 33-year-old female with pertinent history of ESRD on hemodialysis T/T/S, [id number] 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
[2024-07-31] MEDS: Acetaminophen 325 MG TABLET 650 MG PO (23:16)
[2024-08-01] VITALS (8 sets, daily range): BP systolic 113–170; BP diastolic 55–84; PULSE 70–81; RESP 16–20; TEMP 36.1–36.8; O2SAT 95–100
[2024-08-01] MEDS: HYDROmorphone HCl 0.5 MG/0.5 ML SYRINGE IVPUSH ×5 (01:56→21:02)
[2024-08-01 07:06] LABS: Hematocrit 24.1 % (37.0-47.0); Hemoglobin 7.8 g/dl (12.0-16.0); Mean Corpuscular HGB Conc 32.4 g/dl (31.0-35.0); Mean Corpuscular Hemoglobin 30.6 pg (27.0-33.0); Mean Corpuscular Volume 94.5 fL (80.0-98.0); Mean Platelet Volume 12.1 fL (9.4-12.3); Platelet Count 114 X10*3/uL (160-400); Red Blood Count 2.55 X10*6/uL (4.20-5.50); Red Cell Distribution Width 18.3 % (11.0-16.0); White Blood Count 6.4 X10*3/uL (4.8-10.8)
[2024-08-01 07:17] LABS: Glucose, Whole Blood 78 mg/dL (60-115)
[2024-08-01 07:38] LABS: Blood Urea Nitrogen 44 mg/dL (9-16); Calcium 9.2 mg/dL (8.4-10.2); Creatinine Clr Calc Pharmacy 11.1; Estimated Glomerular Filt Rate 7; Glucose Random 81 mg/dL (60-115)
[2024-08-01 07:48] LABS: Anion Gap 14 (12-20); Carbon Dioxide 29 mmol/L (22-29); Chloride 97 mmol/L (96-108); Potassium 4.1 mmol/L (3.3-5.1); Sodium 136 mmol/L (135-145)
[2024-08-01] MEDS: ondansetron HCL 4 MG/2 ML VIAL IVPUSH (07:52)
[2024-08-01] MEDS: 0.9 % Sodium Chloride Flush 3 ML SYRINGE IVFLUSH ×3 (07:52→21:14)
--- NOTE | 2024-08-01 10:45 | P.PNIM_ITS ---
Subjective Subjective Date of Service: 08/01/24 Interval History: f/u on encephalopathy, concern for line bacteremia, endocarditis Physical Exam 2 Vital Signs: Vital Signs: Last Vital Signs Temp 97.3 F 08/01/24 07:05 Pulse 79 08/01/24 07:05 Resp 18 08/01/24 07:05 BP 160/84 H 08/01/24 07:05 Pulse Ox 99 08/01/24 07:05 O2 Del Method Nasal Cannula 08/01/24 07:05 O2 Flow Rate 2 08/01/24 07:05 Oxygen Flow Rate 2 07/31/24 10:27 BMI result Body Mass Index 33.1 Const: Other: General: AOx3, no acute distress. Pt blind. Resp: CTA bilaterally CVS: S1, S2, RRR GI: +BS, no distention, right-sided tenderness without guarding or rebound tenderness Skin: Warm, dry. HD catheter without purulence. Neuro: Cranial nerves II-XII grossly intact bilaterally. Motor grossly intact bilaterally Extremities: No edema. Bilateral TMA. Chronic bilateral foot ulcers without obvious signs of infection. See ED visit chart for pictures. Psych: Appropriate affect Objective Data Active Medications Acetaminophen (Acetaminophen 325 Mg Tablet) 650 mg PO Q6H PRN PRN Reason: Pain, Mild 1-3,fever,headache Last Admin: 07/31/24 23:16 Dose: 650 mg Documented By: ALEJANDRA Calcium Carbonate (Calcium Carbonate 750 Mg Tab.Chew) 750 mg PO Q4H PRN PRN Reason: Heartburn Hydromorphone HCl (Hydromorphone Hcl 0.5 Mg/0.5 Ml Syringe) 0.5 mg IVPUSH Q4H PRN; Protocol PRN Reason: Pain, Severe (Pain Scale 7-10) Last Admin: 08/01/24 07:52 Dose: 0.5 mg Documented By: CASSIE Daptomycin 600 mg/ Sodium (Chloride) 62 mls @ 100 mls/hr IV SA@1800 VASILE Daptomycin 400 mg/ Sodium (Chloride) 58 mls @ 100 mls/hr IV TUTH@1800 [facility] Cefepime HCl 1 gm/ Sodium (Chloride) 50 mls @ 100 mls/hr IV Q24H [facility]ASILE Magnesium Hydroxide (Milk Of Magnesia 30 Ml Oral.Susp) 30 ml PO DAILY PRN PRN Reason: Constipation Melatonin (Melatonin 3 Mg Tablet) 6 mg PO BEDTIME PRN PRN Reason: Insomnia Ondansetron HCl (Ondansetron Hcl 4 Mg/2 Ml Vial) 4 mg IVPUSH Q8H PRN PRN Reason: Nausea and Vomiting Last Admin: 08/01/24 07:52 Dose: 4 mg Documented By: CASSIE Sodium Chloride (0.9 % Sodium Chloride Flush 3 Ml Syringe) 3 ml IVFLUSH QSHIFT [facility] Last Admin: 08/01/24 07:52 Dose: 3 ml Documented By: CASSIE Labs 08/01/24 06:47 08/01/24 06:47 Labs: Laboratory Results - last 24 hr 07/31/24 07/31/24 07/31/24 10:42 10:50 13:25 MCV 92.8 MCH 30.2 MCHC 32.5 RDW 17.9 H Plt Count 152 L D MPV 11.8 Immature Gran % (Auto) 0.5 H Neut % (Auto) 81.4 H Lymph % (Auto) 6.9 L Holmes % (Auto) 8.9 Eos % (Auto) 1.9 Baso % (Auto) 0.4 Lymph # (Auto) 0.6 L Holmes # (Auto) 0.7 Eos # (Auto) 0.2 Baso # (Auto) 0.0 Abs Immat Gran (auto) 0.04 H Absolute Neuts (auto) 6.8 Absolute Nucleated RBC 0.000 Nucleated RBC % (auto) 0.0 VBG pH 7.40 VBG pCO2 37 VBG pO2 53 VBG HCO3 23 VBG O2 Saturation 75.0 VBG Base Excess -0.4 Anion Gap 21 H Estim Creat Clear Calc 8.5 Estimated GFR 5 POC Glucose Random Glucose 84 Lactic Acid 2.6 H* Lactic Acid F/U @ 2Hr 0.6 Calcium 8.4 Magnesium 2.1 Total Bilirubin 1.3 H Direct Bilirubin 0.6 H AST 25 ALT 13 Alkaline Phosphatase 225 H Troponin I High Sens 72.6 H* C-Reactive Protein 3.01 H B-Natriuretic Peptide 3098 H Total Protein 7.9 Albumin 3.9 Ethyl Alcohol < 10 Influenza Type A (PCR) NEGATIVE Influenza Type B (PCR) NEGATIVE RSV RNA Qual (PCR) NEGATIVE SARS-CoV-2 RNA (RT-PCR) NEGATIVE 08/01/24 08/01/24 06:47 07:13 MCV 94.5 MCH 30.6 MCHC 32.4 RDW 18.3 H Plt Count 114 L MPV 12.1 Immature Gran % (Auto) Neut % (Auto) Lymph % (Auto) Holmes % (Auto) Eos % (Auto) Baso % (Auto) Lymph # (Auto) Holmes # (Auto) Eos # (Auto) Baso # (Auto) Abs Immat Gran (auto) Absolute Neuts (auto) Absolute Nucleated RBC 0.000 Nucleated RBC % (auto) 0.0 VBG pH VBG pCO2 VBG pO2 VBG HCO3 VBG O2 Saturation VBG Base Excess Anion Gap 14 Estim Creat Clear Calc 11.1 Estimated GFR 7 POC Glucose 78 Random Glucose 81 Lactic Acid Lactic Acid F/U @ 2Hr Calcium 9.2 D Magnesium Total Bilirubin Direct Bilirubin AST ALT Alkaline Phosphatase Troponin I High Sens C-Reactive Protein B-Natriuretic Peptide Total Protein Albumin Ethyl Alcohol Influenza Type A (PCR) Influenza Type B (PCR) RSV RNA Qual (PCR) SARS-CoV-2 RNA (RT-PCR) Assessment and Plan (1) Sepsis: Status: Acute Plan Pt is a 34-year-old female with a PMH significant for?ESRD on HD //Sun, [id number] 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 Pt is admitted to the hospital for treatment and further evaluation of acute metabolic encephalopathy in the setting of likely catheter line infection with sepsis. Acute metabolic encephalopathy in the setting of likely dialysis catheter line infection with sepsis Pt with confusion, shaking chills, N/V/abd pain--overall better Hx of multiple line infections with bacteremia Meets sepsis criteria with fever, tachycardia, and tachypnea; initial lactic acid 2.6 with repeat 0.6 Pt given IVF and started on broad-spectrum antibiotics in the ED Will treat with cefepime and daptomycin, started 07/31/2024 Infectious disease consulted. Remove catheter if blood cultures positive Plan is to replace dialysis catheter on Friday 08/04 Follow line and blood cultures ESRD on HD //Sun Nephrology consult, follows with RTANE Follow BMP Monitor on telemetry Elevated troponin Initial troponin 72.6, in line with previous Pt with chronically elevated troponins No signs of ACS Monitor on telemetry [id number] type 2 diabetes With diabetic polyneuropathy/retinopathy Place on sliding scale insulin, diabetic diet HTN Continue carvedilol, hydralazine Chronic hypoxemic respiratory failure Not in acute exacerbation Pt on 3-4 L NC at home HRrEF Continue carvedilol Treat with dialysis as above Chronic pain with opioid seeking behavior Continue home oxycodone Avoid Dilaudid IV as much as possible Full Code Attending:?Dr. Blanton DVT Prophylaxis: Pneumatic compression due to line replacement Pt will require a hospitalization of at least two nights for treatment of?acute metabolic encephalopathy likely from infected dialysis catheter with sepsis. Pt will require hospital level care for administration of IV antibiotics close monitoring of mentation and labs due to ESRD, and eventual line replacement after a short line holiday. Quality Stroke Does the patient have a stroke diagnosis?: No VTE Prior VTE?: No VTE Risk Level:: Medical - moderate - high VTE Device Contraindication: N/A - Device Ordered VTE Drug Contraindication: Treatment Not Indicated
[2024-08-01] MEDS: carvediloL 12.5 MG TABLET PO ×2 (11:55→20:45)
[2024-08-01] MEDS: cefEPime HCl 1 GM in 0.9 % Sodium Chloride 50 ML IV (11:56)
--- NOTE | 2024-08-01 12:06 | W.PM.IDCN ---
History of Present Illness Data of Consult Service Date: 08/01/24 Requesting physician: Contreras Blanton Primary Care Provider: [facility] HPI Reason for consult: shaking chills and hypoxia She presents with shaking chills and hypoxia day of admission. She has had bacteremia in April Group B strep 05/25 and I saw her and thought maybe from foot and received six weeks IV Ceftriaxone. Foot XR 07/21 no change and CXR no lobar infiltrate. BLood cultures are pending and negative so far. Review of Systems Review of Systems: Yes all other systems are reviewed and are negative [facility] Past Medical History Medical History ESRD on hemodialysis ESRD (end stage renal disease) Hypotonic neurogenic bladder Diabetic polyneuropathy ESRD (end stage renal disease) on dialysis Hypertensive emergency Non-compliance with renal dialysis Decompensated heart failure Congestive heart failure Renal failure Hypertension, uncontrolled Medical non-compliance Pericarditis Unspecified hypertension, condition or complication Metabolic acidosis Gastroparesis End stage chronic kidney disease Chronic kidney disease Anemia Chronic foot ulcer Plantar ulcer of left foot Major depressive disorder, single episode, severe Non-compliance with renal dialysis Hypertensive urgency MDD (major depressive disorder), recurrent episode MDD (major depressive disorder) Renal failure Foot ulcer CKD (chronic kidney disease) Hypertension Diabetic foot Hyperkalemia Vomiting Renal failure Hypertension Migraine Chronic pain ESRD on dialysis Non-compliance with renal dialysis Hypertension End-stage renal disease (ESRD) Diabetic foot ulcer associated with type 2 diabetes mellitus Diabetes ESRD needing dialysis Cardiomyopathy HFrEF (heart failure with reduced ejection fraction) delivery delivered Anemia in chronic kidney disease (CKD) CKD (chronic kidney disease) Headache, migraine Abnormal finding on echocardiogram Elevated troponin Chest pain Acute worsening of stage 3 chronic kidney disease Generalized edema Sepsis Cellulitis Pleural effusion CHF (congestive heart failure) (~06/07/22) Tachycardia Atypical chest pain Bone infection PAD (peripheral artery disease) Severe anemia Cellulitis and abscess of foot DM foot ulcer Osteomyelitis Asthma Depression with anxiety Diabetic retinopathy Type 2 diabetes mellitus with hyperglycemia, with long-term current use of insulin Blind right eye Diabetes Back pain Family History Family History Mother Coronary artery disease Myocardial infarction Stroke Diabetes mellitus Father Myocardial infarction Family history: reviewed and not pertinent Surgical History Surgical History Tubal ligation status Previous section Hx laparoscopic cholecystectomy Hx of surgical procedure (~09/11/23) 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 Social History Social History Household Members: Family Household Members Other:: sister Housing: Apartment Are you a primary critical care transport nurse to a significant other at home: No Do you presently have visiting nurse or other home services: No Unable to assess alcohol history related to: Unknown Alcohol intake: never Comment: Patient refusing assistance OOB and alarms as well as camera despite educat Patient Tobacco Use Status: Never used Tobacco e-Cigarette/Vaping Use: Never Used Second Hand Smoke Exposure: No Currently Displaying Signs/Symptoms of Drug Intoxication Withdrawal: No Have you been hit, kicked, punched, or otherwise hurt by someone within the past year? If so, by whom?: No Do you feel safe in your current relationship?: Yes Is there a partner from a previous relationship who is making you feel unsafe now?: No Are you made to feel afraid or neglected: No Advance Directives: Yes Advance Directives on File: Yes Advance Directives Date on File: 09/04/23 Do you have a plan to hurt others: No Plan Recently lost weight without trying: No Nutrition Risks: No Nutritional Risk Patient : No : No service: No Current occupational status: unemployed and disabled Gender identity: Female Meds Allergies Allergy/AdvReac Type Severity Reaction Status Date / Time morphine [MORPHINE] Allergy Intermediate Itching Verified 07/31/24 10:29 azithromycin [From Zithromax] Allergy Hives Verified 07/31/24 10:29 gabapentin Allergy Facial Verified 07/31/24 10:29 Swelling tramadol Allergy Facial Verified 07/31/24 10:29 Swelling vancomycin Allergy Anaphylaxis Verified 07/31/24 10:29 Active Medications: Current Medications Acetaminophen (Acetaminophen 325 Mg Tablet) 650 mg PO Q6H PRN PRN Reason: Pain, Mild 1-3,fever,headache Last Admin: 07/31/24 23:16 Dose: 650 mg Acetaminophen (Acetaminophen 325 Mg Tablet) 650 mg PO Q4H PRN PRN Reason: mild pain Albuterol Sulfate (Albuterol Sulfate 90 Mcg 8 Gm Inhaler) 2 puff INHALE Q6H PRN PRN Reason: wheezing Calcium Carbonate (Calcium Carbonate 750 Mg Tab.Chew) 750 mg PO Q4H PRN PRN Reason: Heartburn Calcium Carbonate (Calcium Carbonate 750 Mg Tab.Chew) 750 mg PO BIDWM PRN PRN Reason: ACID REFLUX Carvedilol (Carvedilol 12.5 Mg Tablet) 12.5 mg PO BID [facility], [facility]; Protocol Last Admin: 08/01/24 11:55 Dose: 12.5 mg Diphenhydramine HCl (Diphenhydramine Hcl 25 Mg Capsule) 25 mg PO Q6H PRN PRN Reason: pruritis Docusate Sodium (Docusate Sodium 100 Mg Capsule) 100 mg PO BID PRN PRN Reason: Constipation Hydralazine HCl (Hydralazine Hcl 50 Mg Tablet) 50 mg PO TID [facility], [facility]; Protocol Hydromorphone HCl (Hydromorphone Hcl 0.5 Mg/0.5 Ml Syringe) 0.5 mg IVPUSH Q4H PRN; Protocol PRN Reason: Pain, Severe (Pain Scale 7-10) Last Admin: 08/01/24 07:52 Dose: 0.5 mg Daptomycin 600 mg/ Sodium (Chloride) 62 mls @ 100 mls/hr IV SA@1800 [facility] Daptomycin 400 mg/ Sodium (Chloride) 58 mls @ 100 mls/hr IV TUTH@1800 VASILE Cefepime HCl 1 gm/ Sodium (Chloride) 50 mls @ 100 mls/hr IV Q24H [facility]1983 Last Admin: 08/01/24 11:56 Dose: 100 mls/hr Lidocaine (Lidocaine 4 % Patch Adh..Patch) 1 patch TRANSDERMA DAILY PRN PRN Reason: Pain Magnesium Hydroxide (Milk Of Magnesia 30 Ml Oral.Susp) 30 ml PO DAILY PRN PRN Reason: Constipation Melatonin (Melatonin 3 Mg Tablet) 6 mg PO BEDTIME PRN PRN Reason: Insomnia Ondansetron HCl (Ondansetron Hcl 4 Mg/2 Ml Vial) 4 mg IVPUSH Q8H PRN PRN Reason: Nausea and Vomiting Last Admin: 08/01/24 07:52 Dose: 4 mg Ondansetron HCl (Ondansetron Odt 4 Mg Tab.Rapdis) 4 mg TRANSLINGU Q8H PRN PRN Reason: nausea and vomiting Polyethylene Glycol (Polyethylene Glycol 3350 17 Gm Powd.Pack) 17 gm PO BID PRN PRN Reason: Constipation Sodium Chloride (0.9 % Sodium Chloride Flush 3 Ml Syringe) 3 ml IVFLUSH [facility] Last Admin: 08/01/24 07:52 Dose: 3 ml Home Medications ?Medication ?Instructions ?Recorded ?Confirmed ?Last Taken ?Type albuterol sulfate 90 mcg/actuation 2 puff inhalation Q6H PRN wheezing 01/15/24 07/31/24 Unknown History aerosol inhaler (Ventolin HFA) lidocaine 5 % topical patch 1 patch topical DAILY PRN Pain 01/15/24 07/31/24 02/24/24 History nitroglycerin 0.4 mg sublingual 0.4 mg sublingual DIRECTED PRN 01/15/24 07/31/24 Unknown History tablet Angina acetaminophen 325 mg tablet 650 mg PO Q4H PRN mild pain 03/11/24 07/31/24 Unknown History oxycodone 5 mg tablet 5 mg PO Q8H PRN Pain 05/25/24 07/31/24 06/25/24 History calcium carbonate (Tums) 200 mg PO TIDWM 07/03/24 07/31/24 Unknown History docusate sodium 100 mg capsule 100 mg PO BID PRN Constipation 07/31/24 07/31/24 Unknown History (Colace) polyethylene glycol 3350 17 17 g PO BID PRN Constipation 07/31/24 07/31/24 Unknown History gram/dose oral powder (Miralax) Physical Exam Vital Signs: Vital Signs: Last Vital Signs Temp 97.8 F 08/01/24 10:56 Pulse 81 08/01/24 10:56 Resp 20 08/01/24 10:56 BP 170/84 H 08/01/24 10:56 Pulse Ox 98 08/01/24 10:56 O2 Del Method Nasal Cannula 08/01/24 10:56 O2 Flow Rate 2 08/01/24 10:56 Oxygen Flow Rate 2 07/31/24 10:27 BMI result Body Mass Index 33.1 Const: General: cooperative HEENT: Head: Yes normal to inspection Face and sinus: Yes normal facial exam Mouth: Normal oral and palatal mucosa present Teeth and gingiva: dentition normal Eyes: Other: blind,clear film Pupils: Equal, round and reactive pupils present Chest: Other: right dialysis cath site chest clear Resp: Effort & Inspection: normal respiratory effort Cardio: Rate: regular rate Rhythm: regular rhythm GI: Palpation (GI): Soft to palpation and nontender : General: Yes no CVA tenderness Back/Spine/Pelvis: Back: no CVA tenderness Skin: General skin exam: no rashes or lesions noted Neuro: General: moves all extremities Cranial nerves: Yes Equal, round and reactive pupils present Extrem: Other: right and left TMA chronic ulcer left foot plantar Psych: Appearance: grossly normal Results Labs 08/01/24 06:47 08/01/24 06:47 Labs: Short CBC 08/01/24 Range/Units 06:47 WBC 6.4 (4.8-10.8) X10*3/uL Hgb 7.8 L (12.0-16.0) g/dl Hct 24.1 L (37.0-47.0) % Plt Count 114 L (160-400) X10*3/uL BMP 08/01/24 06:47 Sodium 136 Potassium 4.1 Chloride 97 Carbon Dioxide 29 BUN 44 H Creatinine 6.95 H* Calcium 9.2 D Assessment and Plan (1) Acute metabolic encephalopathy: Status: Acute (2) ESRD (end stage renal disease): Status: Acute (3) Hypoxia: Status: Acute Plan Await blood culture and address removal of dialysis catheter line if MRSA or true gram negative or fungus in blood. Otherwise continue Daptomycin and Cefepime (feet look no significant change and no UTI or bacteremia at this time) If negative blood cultures can treat empirically with po Augmentin 500 mg daily for 10d ?cellulitis source now cleared.
[2024-08-01] MEDS: diphenhydrAMINE HCL 25 MG CAPSULE PO (12:41)
--- NOTE | 2024-08-01 13:24 | MHC.CM.PN ---
PT LIVES WITH HER SISTER WHO IS ALSO HER WIRE COMMUNICATIONS ENGINEER PT USES A WHEEL CHAIR FOR MOBILITY AND HAS HOME O2 FROM [facility] SHE GOES TO [facility] FOR HD HCP ON FILE PCP: ARMANI CHATMAN IMM DELIVERED DCP: HOME RESUME SERVICES SISTER TO TRANSPORT
[2024-08-01] MEDS: hydrALAZINE HCl 50 MG TABLET PO ×2 (17:15→20:45)
[2024-08-01] MEDS: diphenhydrAMINE HCL 50 MG/ML VIAL 25 MG IVPUSH (21:12)
--- NOTE | 2024-08-01 21:52 | P.PNNP_ITS ---
Subjective Subjective Date of Service: 08/01/24 Interval history: f/u on encephalopathy, concern for line bacteremia, endocarditis Physical Exam 2 Vital Signs: Vital Signs: Last Vital Signs Temp 97 F 08/01/24 19:46 Pulse 73 08/01/24 19:46 Resp 18 08/01/24 19:46 BP 117/55 L 08/01/24 19:46 Pulse Ox 95 08/01/24 19:46 O2 Del Method Nasal Cannula 08/01/24 19:46 O2 Flow Rate 2 08/01/24 19:46 Oxygen Flow Rate 2 07/31/24 10:27 BMI result Body Mass Index 33.1 cvs: s1s2 Rs; cta ABd; soft Objective Data Labs 08/01/24 06:47 08/01/24 06:47 Labs: Laboratory Results - last 24 hr 08/01/24 08/01/24 06:47 07:13 WBC 6.4 RBC 2.55 L Hgb 7.8 L Hct 24.1 L MCV 94.5 MCH 30.6 MCHC 32.4 RDW 18.3 H Plt Count 114 L MPV 12.1 Absolute Nucleated RBC 0.000 Nucleated RBC % (auto) 0.0 Sodium 136 Potassium 4.1 Chloride 97 Carbon Dioxide 29 Anion Gap 14 BUN 44 H Creatinine 6.95 H* Estim Creat Clear Calc 11.1 Estimated GFR 7 POC Glucose 78 Random Glucose 81 Calcium 9.2 D Microbiology Microbiology Results: Microbiology 07/31/24 10:57 Blood - Venous Blood Culture - Preliminary No growth after 24 hours. 07/31/24 10:42 Blood - Venous Blood Culture - Preliminary No growth after 24 hours. 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, peripheral arterial disease status post bilateral TMA, poorly controlled hypertension due to medication noncompliance, chronic hypoxemic respiratory failure on 3-4 L baseline supplemental oxygen, congestive heart failure with reduced ejection fraction, mood disorder, chronic pain with opioid seeking behavior who presents to the emergency department for fever and chills ESRD: TTS [facility] H/O CRBSI: now suspected line infection - however bld cx no growth at 24 hrs REC: cont HD TTS, meds as noted including ABx line removal based on culture results Time Spent With Patient Time: Total time managing care of this patient today ____ minutes. Progress Note: Quality Stroke Does the patient have a stroke diagnosis?: No
[2024-08-02] VITALS (8 sets, daily range): BP systolic 94–153; BP diastolic 53–80; PULSE 69–80; RESP 16–18; TEMP 36.3–37.1; O2SAT 95–100
[2024-08-02] MEDS: HYDROmorphone HCl 0.5 MG/0.5 ML SYRINGE IVPUSH ×6 (01:32→22:48)
[2024-08-02 07:15] LABS: Hematocrit 23.6 % (37.0-47.0); Hemoglobin 7.7 g/dl (12.0-16.0); Mean Corpuscular HGB Conc 32.6 g/dl (31.0-35.0); Mean Corpuscular Hemoglobin 30.8 pg (27.0-33.0); Mean Corpuscular Volume 94.4 fL (80.0-98.0); Mean Platelet Volume 11.8 fL (9.4-12.3); NRBC Pct Auto 0.5 /100WBC (0.0-0.2); Platelet Count 110 X10*3/uL (160-400); Red Cell Distribution Width 17.6 % (11.0-16.0); White Blood Count 4.2 X10*3/uL (4.8-10.8)
[2024-08-02 07:21] LABS: Anion Gap 16 (12-20); Blood Urea Nitrogen 39 mg/dL (9-16); Calcium 8.5 mg/dL (8.4-10.2); Carbon Dioxide 27 mmol/L (22-29); Chloride 97 mmol/L (96-108); Creatinine Clr Calc Pharmacy 13.2; Estimated Glomerular Filt Rate 8; Glucose Random 99 mg/dL (60-115); Potassium 3.5 mmol/L (3.3-5.1); Sodium 136 mmol/L (135-145)
[2024-08-02] MEDS: 0.9 % Sodium Chloride Flush 3 ML SYRINGE IVFLUSH ×3 (10:06→22:49)
--- NOTE | 2024-08-02 10:45 | P.PNIM_ITS ---
Subjective Subjective Date of Service: 08/02/24 Interval History: f/u on encephalopathy, concern for line bacteremia so far blood cultures remain negative Physical Exam 2 Vital Signs: Vital Signs: Last Vital Signs Temp 97.5 F 08/02/24 09:55 Pulse 76 08/02/24 09:55 Resp 17 08/02/24 09:55 BP 96/63 08/02/24 09:55 Pulse Ox 95 08/02/24 09:55 O2 Del Method Nasal Cannula 08/02/24 09:55 O2 Flow Rate 2 08/02/24 09:55 Oxygen Flow Rate 2 07/31/24 10:27 BMI result Body Mass Index 33.1 Const: Other: General: AOx3, no acute distress. Pt blind. Resp: CTA bilaterally CVS: S1, S2, RRR GI: +BS, no distention, right-sided tenderness without guarding or rebound tenderness Skin: Warm, dry. HD catheter without purulence. Neuro: Cranial nerves II-XII grossly intact bilaterally. Motor grossly intact bilaterally Extremities: No edema. Bilateral TMA. Chronic bilateral foot ulcers without obvious signs of infection. See ED visit chart for pictures. Psych: Appropriate affect Objective Data Active Medications Acetaminophen (Acetaminophen 325 Mg Tablet) 650 mg PO Q6H PRN PRN Reason: Pain, Mild 1-3,fever,headache Last Admin: 07/31/24 23:16 Dose: 650 mg Documented By: ALEJANDRA Acetaminophen (Acetaminophen 325 Mg Tablet) 650 mg PO Q4H PRN PRN Reason: mild pain Albuterol Sulfate (Albuterol Sulfate 90 Mcg 8 Gm Inhaler) 2 puff INHALE Q6H PRN PRN Reason: wheezing Calcium Carbonate (Calcium Carbonate 750 Mg Tab.Chew) 750 mg PO Q4H PRN PRN Reason: Heartburn Calcium Carbonate (Calcium Carbonate 750 Mg Tab.Chew) 750 mg PO BIDWM PRN PRN Reason: ACID REFLUX Carvedilol (Carvedilol 12.5 Mg Tablet) 12.5 mg PO BID [facility]; Protocol Last Admin: 08/02/24 10:01 Dose: Not Given Documented By: BJ Non-Admin Reason: hold per MD. hypotensive Diphenhydramine HCl (Diphenhydramine Hcl 50 Mg/Ml Vial) 25 mg IVPUSH Q6H PRN PRN Reason: Itching Docusate Sodium (Docusate Sodium 100 Mg Capsule) 100 mg PO BID PRN PRN Reason: Constipation Hydralazine HCl (Hydralazine Hcl 50 Mg Tablet) 50 mg PO TID [facility]; Protocol Last Admin: 08/02/24 10:01 Dose: Not Given Documented By: BJ Non-Admin Reason: hold per MD. hypotensive Hydromorphone HCl (Hydromorphone Hcl 0.5 Mg/0.5 Ml Syringe) 0.5 mg IVPUSH Q4H PRN; Protocol PRN Reason: Pain, Severe (Pain Scale 7-10) Last Admin: 08/02/24 10:03 Dose: 0.5 mg Documented By: BJ Daptomycin 600 mg/ Sodium (Chloride) 62 mls @ 100 mls/hr IV SA@1800 [facility] Daptomycin 400 mg/ Sodium (Chloride) 58 mls @ 100 mls/hr IV TUTH@1800 [facility] Cefepime HCl 1 gm/ Sodium (Chloride) 50 mls @ 100 mls/hr IV Q24H [facility] Last Infusion: 08/01/24 12:26 Dose: Infused Documented By: CASSIE Lidocaine (Lidocaine 4 % Patch Adh..Patch) 1 patch TRANSDERMA DAILY PRN PRN Reason: Pain Magnesium Hydroxide (Milk Of Magnesia 30 Ml Oral.Susp) 30 ml PO DAILY PRN PRN Reason: Constipation Melatonin (Melatonin 3 Mg Tablet) 6 mg PO BEDTIME PRN PRN Reason: Insomnia Ondansetron HCl (Ondansetron Hcl 4 Mg/2 Ml Vial) 4 mg IVPUSH Q8H PRN PRN Reason: Nausea and Vomiting Last Admin: 08/01/24 07:52 Dose: 4 mg Documented By: CASSIE Ondansetron HCl (Ondansetron Odt 4 Mg Tab.Rapdis) 4 mg TRANSLINGU Q8H PRN PRN Reason: nausea and vomiting Polyethylene Glycol (Polyethylene Glycol 3350 17 Gm Powd.Pack) 17 gm PO BID PRN PRN Reason: Constipation Sodium Chloride (0.9 % Sodium Chloride Flush 3 Ml Syringe) 3 ml IVFLUSH QSHIFT [facility] Last Admin: 08/02/24 10:06 Dose: 3 ml Documented By: BJ Labs 08/02/24 06:37 08/02/24 06:37 Labs: Laboratory Results - last 24 hr 08/02/24 06:37 MCV 94.4 MCH 30.8 MCHC 32.6 RDW 17.6 H Plt Count 110 L MPV 11.8 Absolute Nucleated RBC 0.020 H Nucleated RBC % (auto) 0.5 H Anion Gap 16 Estim Creat Clear Calc 13.2 Estimated GFR 8 Random Glucose 99 Calcium 8.5 D Microbiology Microbiology Results: Microbiology 07/31/24 10:57 Blood Culture - Preliminary Blood - Venous No growth after 24 hours. 07/31/24 10:42 Blood Culture - Preliminary Blood - Venous No growth after 24 hours. 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 Pt is admitted to the hospital for treatment and further evaluation of acute metabolic encephalopathy in the setting of likely catheter line infection with sepsis. Acute metabolic encephalopathy in the setting with concern for line infection Pt with confusion, shaking chills, N/V/abd pain, no longer confused Hx of multiple line infections with bacteremia Meets sepsis criteria with fever, tachycardia, and tachypnea; initial lactic acid 2.6 with repeat 0.6 Pt given IVF and started on broad-spectrum antibiotics in the ED Will treat with cefepime and daptomycin, started 07/31/2024 Infectious disease consulted. For now keep line and follow cultures, so far negative going into 48 hours Plan is to replace dialysis catheter on Friday 08/04 if blood culltures positive Follow line and blood cultures ESRD on HD / Nephrology consult, follows with [facility] Follow BMP Monitor on telemetry Elevated troponin Initial troponin 72.6, in line with previous Pt with chronically elevated troponins No signs of ACS Monitor on telemetry Jso-[id number]-[id number] type 2 diabetes With diabetic polyneuropathy/retinopathy Place on sliding scale insulin, diabetic diet HTN Continue carvedilol, hydralazine Chronic hypoxemic respiratory failure Not in acute exacerbation Pt on 3-4 L NC at home HRrEF Continue carvedilol Treat with dialysis as above Chronic pain with opioid seeking behavior Continue home oxycodone Avoid Dilaudid IV as much as possible Full Code DVT Prophylaxis: Pneumatic compression due to line replacement Pt will require a hospitalization of at least two nights for treatment of?acute metabolic encephalopathy likely from infected dialysis catheter with sepsis. Pt will require hospital level care for administration of IV antibiotics close monitoring of mentation and labs due to ESRD, and eventual line replacement after a short line holiday. Quality Stroke Does the patient have a stroke diagnosis?: No VTE Prior VTE?: No VTE Risk Level:: Medical - moderate - high VTE Device Contraindication: N/A - Device Ordered VTE Drug Contraindication: Treatment Not Indicated
[2024-08-02] MEDS: cefEPime HCl 1 GM in 0.9 % Sodium Chloride 50 ML IV (11:08)
[2024-08-02] MEDS: diphenhydrAMINE HCL 50 MG/ML VIAL 25 MG IVPUSH ×3 (11:08→23:23)
[2024-08-02] MEDS: hydrALAZINE HCl 50 MG TABLET PO ×2 (16:16→22:45)
[2024-08-02] MEDS: DAPTOmycin 600 MG in 0.9 % Sodium Chloride 50 ML 100 MG IV (17:13)
[2024-08-02] MEDS: carvediloL 12.5 MG TABLET PO (22:44)
[2024-08-03] VITALS (9 sets, daily range): BP systolic 105–162; BP diastolic 53–72; PULSE 72–83; RESP 16–18; TEMP 36–36.3; O2SAT 98–100
[2024-08-03] MEDS: HYDROmorphone HCl 0.5 MG/0.5 ML SYRINGE IVPUSH ×5 (04:13→21:30)
[2024-08-03] MEDS: diphenhydrAMINE HCL 50 MG/ML VIAL 25 MG IVPUSH ×3 (05:40→18:13)
[2024-08-03] MEDS: hydrALAZINE HCl 50 MG TABLET PO ×3 (08:42→21:28)
[2024-08-03] MEDS: carvediloL 12.5 MG TABLET PO ×2 (08:44→21:27)
[2024-08-03] MEDS: 0.9 % Sodium Chloride Flush 3 ML SYRINGE IVFLUSH ×3 (08:45→21:31)
[2024-08-03] MEDS: Ondansetron ODT 4 MG TAB.RAPDIS TRANSLINGU (08:50)
[2024-08-03 09:03] LABS: Hematocrit 28.2 % (37.0-47.0); Mean Corpuscular HGB Conc 31.9 g/dl (31.0-35.0); Mean Corpuscular Hemoglobin 30.5 pg (27.0-33.0); Mean Corpuscular Volume 95.6 fL (80.0-98.0); Mean Platelet Volume 11.4 fL (9.4-12.3); Platelet Count 127 X10*3/uL (160-400); Red Blood Count 2.95 X10*6/uL (4.20-5.50); Red Cell Distribution Width 17.9 % (11.0-16.0)
[2024-08-03 09:22] LABS: Anion Gap 15 (12-20); Blood Urea Nitrogen 41 mg/dL (9-16); Calcium 8.6 mg/dL (8.4-10.2); Carbon Dioxide 30 mmol/L (22-29); Chloride 95 mmol/L (96-108); Creatinine Clr Calc Pharmacy 11.1; Estimated Glomerular Filt Rate 7; Glucose Random 150 mg/dL (60-115); Potassium 4.3 mmol/L (3.3-5.1); Sodium 136 mmol/L (135-145)
[2024-08-03] MEDS: cefEPime HCl 1 GM in 0.9 % Sodium Chloride 50 ML IV (11:33)
--- NOTE | 2024-08-03 11:46 | P.CONGS_ITS ---
History of Present Illness Consult details Consult date: 08/03/24 Requesting physician: Contreras Blanton Narrative: 34-year-old female patient well known to the surgical service with a prior history of bilateral foot ulcers status post bilateral transmetatarsal amputations and multiple debridement procedures presenting with drainage from bilateral foot wounds. Surgical consultation was requested for consideration of possible surgical debridement of the foot wounds. Her past medical history is significant for end-stage renal disease on hemodialysis on Sunday and Sunday, non insulin-dependent diabetes mellitus, diabetic polyneuropathy and retinopathy with legal blindness, hypertension, peripheral arterial disease, HFrEF. She was initially thought to have bacteremia from a dialysis catheter and admitted to the hospitalist service. She reports pain from both feet especially on the right foot on the anterior surface as well as the left foot on the plantar surface. Foul-smelling discharge has been noted by her sister from both sides. Review of Systems 2 Review of Systems: Yes all other systems are reviewed and are negative PMFSH Past Medical History Medical History ESRD on hemodialysis ESRD (end stage renal disease) Hypotonic neurogenic bladder Diabetic polyneuropathy ESRD (end stage renal disease) on dialysis Hypertensive emergency Non-compliance with renal dialysis Decompensated heart failure Congestive heart failure Renal failure Hypertension, uncontrolled Medical non-compliance Pericarditis Unspecified hypertension, condition or complication Metabolic acidosis Gastroparesis End stage chronic kidney disease Chronic kidney disease Anemia Chronic foot ulcer Plantar ulcer of left foot Major depressive disorder, single episode, severe Non-compliance with renal dialysis Hypertensive urgency MDD (major depressive disorder), recurrent episode MDD (major depressive disorder) Renal failure Foot ulcer CKD (chronic kidney disease) Hypertension Diabetic foot Hyperkalemia Vomiting Renal failure Hypertension Migraine Chronic pain ESRD on dialysis Non-compliance with renal dialysis Hypertension End-stage renal disease (ESRD) Diabetic foot ulcer associated with type 2 diabetes mellitus Diabetes ESRD needing dialysis Cardiomyopathy HFrEF (heart failure with reduced ejection fraction) delivery delivered Anemia in chronic kidney disease (CKD) CKD (chronic kidney disease) Headache, migraine Abnormal finding on echocardiogram Elevated troponin Chest pain Acute worsening of stage 3 chronic kidney disease Generalized edema Sepsis Cellulitis Pleural effusion CHF (congestive heart failure) (~06/07/22) Tachycardia Atypical chest pain Bone infection PAD (peripheral artery disease) Severe anemia Cellulitis and abscess of foot DM foot ulcer Osteomyelitis Asthma Depression with anxiety Diabetic retinopathy Type 2 diabetes mellitus with hyperglycemia, with long-term current use of insulin Blind right eye Diabetes Back pain Family History Family History Mother Coronary artery disease Myocardial infarction Stroke Diabetes mellitus Father Myocardial infarction Family history: reviewed and not pertinent Surgical History Surgical History Tubal ligation status Previous section Hx laparoscopic cholecystectomy Hx of surgical procedure (~09/11/23) 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 Social History Social History Household Members: Family Household Members Other:: sister Housing: Apartment Are you a primary sub acute care nurse to a significant other at home: No Do you presently have visiting nurse or other home services: No Unable to assess alcohol history related to: Unknown Alcohol intake: never Comment: Patient refusing assistance OOB and alarms as well as camera despite educat Patient Tobacco Use Status: Never used Tobacco e-Cigarette/Vaping Use: Never Used Second Hand Smoke Exposure: No Currently Displaying Signs/Symptoms of Drug Intoxication Withdrawal: No Have you been hit, kicked, punched, or otherwise hurt by someone within the past year? If so, by whom?: No Do you feel safe in your current relationship?: Yes Is there a partner from a previous relationship who is making you feel unsafe now?: No Are you made to feel afraid or neglected: No Advance Directives: Yes Advance Directives on File: Yes Advance Directives Date on File: 09/04/23 Do you have a plan to hurt others: No Plan Recently lost weight without trying: No Nutrition Risks: No Nutritional Risk Patient : No : No service: No Current occupational status: unemployed and disabled Gender identity: Female Meds Allergies Allergy/AdvReac Type Severity Reaction Status Date / Time morphine [MORPHINE] Allergy Intermediate Itching Verified 07/31/24 10:29 azithromycin [From Zithromax] Allergy Hives Verified 07/31/24 10:29 gabapentin Allergy Facial Verified 07/31/24 10:29 Swelling tramadol Allergy Facial Verified 07/31/24 10:29 Swelling vancomycin Allergy Anaphylaxis Verified 07/31/24 10:29 Active Medications: Current Medications Acetaminophen (Acetaminophen 325 Mg Tablet) 650 mg PO Q6H PRN PRN Reason: Pain, Mild 1-3,fever,headache Last Admin: 07/31/24 23:16 Dose: 650 mg Acetaminophen (Acetaminophen 325 Mg Tablet) 650 mg PO Q4H PRN PRN Reason: mild pain Albuterol Sulfate (Albuterol Sulfate 90 Mcg 8 Gm Inhaler) 2 puff INHALE Q6H PRN PRN Reason: wheezing Calcium Carbonate (Calcium Carbonate 750 Mg Tab.Chew) 750 mg PO Q4H PRN PRN Reason: Heartburn Calcium Carbonate (Calcium Carbonate 750 Mg Tab.Chew) 750 mg PO BIDWM PRN PRN Reason: ACID REFLUX Carvedilol (Carvedilol 12.5 Mg Tablet) 12.5 mg PO BID [facility]; Protocol Last Admin: 08/03/24 08:44 Dose: 12.5 mg Diphenhydramine HCl (Diphenhydramine Hcl 50 Mg/Ml Vial) 25 mg IVPUSH Q6H PRN PRN Reason: Itching Last Admin: 08/03/24 11:34 Dose: 25 mg Docusate Sodium (Docusate Sodium 100 Mg Capsule) 100 mg PO BID PRN PRN Reason: Constipation Hydralazine HCl (Hydralazine Hcl 50 Mg Tablet) 50 mg PO TID [facility]; Protocol Last Admin: 08/03/24 08:42 Dose: 50 mg Hydromorphone HCl (Hydromorphone Hcl 0.5 Mg/0.5 Ml Syringe) 0.5 mg IVPUSH Q4H PRN; Protocol PRN Reason: Pain, Severe (Pain Scale 7-10) Last Admin: 08/03/24 08:45 Dose: 0.5 mg Daptomycin 600 mg/ Sodium (Chloride) 62 mls @ 100 mls/hr IV SA@1800 [facility] Last Infusion: 08/02/24 17:52 Dose: Infused Daptomycin 400 mg/ Sodium (Chloride) 58 mls @ 100 mls/hr IV TUTH@1800 [facility] Cefepime HCl 1 gm/ Sodium (Chloride) 50 mls @ 100 mls/hr IV Q24H [facility] Last Admin: 08/03/24 11:33 Dose: 100 mls/hr Lidocaine (Lidocaine 4 % Patch Adh..Patch) 1 patch TRANSDERMA DAILY PRN PRN Reason: Pain Magnesium Hydroxide (Milk Of Magnesia 30 Ml Oral.Susp) 30 ml PO DAILY PRN PRN Reason: Constipation Melatonin (Melatonin 3 Mg Tablet) 6 mg PO BEDTIME PRN PRN Reason: Insomnia Ondansetron HCl (Ondansetron Hcl 4 Mg/2 Ml Vial) 4 mg IVPUSH Q8H PRN PRN Reason: Nausea and Vomiting Last Admin: 08/01/24 07:52 Dose: 4 mg Ondansetron HCl (Ondansetron Odt 4 Mg Tab.Rapdis) 4 mg TRANSLINGU Q8H PRN PRN Reason: nausea and vomiting Last Admin: 08/03/24 08:50 Dose: 4 mg Polyethylene Glycol (Polyethylene Glycol 3350 17 Gm Powd.Pack) 17 gm PO BID PRN PRN Reason: Constipation Sodium Chloride (0.9 % Sodium Chloride Flush 3 Ml Syringe) 3 ml IVFLUSH QSHIFT [facility] Last Admin: 08/03/24 08:45 Dose: 3 ml Home Medications ?Medication ?Instructions ?Recorded ?Confirmed ?Last Taken ?Type albuterol sulfate 90 mcg/actuation 2 puff inhalation Q6H PRN wheezing 01/15/24 07/31/24 Unknown History aerosol inhaler (Ventolin HFA) lidocaine 5 % topical patch 1 patch topical DAILY PRN Pain 01/15/24 07/31/24 02/24/24 History nitroglycerin 0.4 mg sublingual 0.4 mg sublingual DIRECTED PRN 01/15/24 07/31/24 Unknown History tablet Angina acetaminophen 325 mg tablet 650 mg PO Q4H PRN mild pain 03/11/24 07/31/24 Unknown History oxycodone 5 mg tablet 5 mg PO Q8H PRN Pain 05/25/24 07/31/24 06/25/24 History calcium carbonate (Tums) 200 mg PO TIDWM 07/03/24 07/31/24 Unknown History docusate sodium 100 mg capsule 100 mg PO BID PRN Constipation 07/31/24 07/31/24 Unknown History (Colace) polyethylene glycol 3350 17 17 g PO BID PRN Constipation 07/31/24 07/31/24 Unknown History gram/dose oral powder (Miralax) Physical Exam 2 Vital Signs: Vital Signs: Last Vital Signs Temp 97.4 F 08/03/24 11:08 Pulse 77 08/03/24 11:08 Resp 18 08/03/24 11:08 BP 105/60 08/03/24 11:08 Pulse Ox 100 08/03/24 11:08 O2 Del Method Nasal Cannula 08/03/24 11:08 O2 Flow Rate 2 08/03/24 11:08 Oxygen Flow Rate 2 07/31/24 10:27 BMI result Body Mass Index 33.1 Const: General: no acute distress Nutritional Appearance: well nourished Orientation/consciousness: patient oriented x3 Eyes: Other: Legal blindness Resp: Effort & Inspection: normal respiratory effort GI: Inspection: Yes normal to inspection Neuro: General: patient oriented x3 Extrem: Other: Left foot with a callus wound on the plantar surface midfoot measuring approximately 3 cm in diameter. Light pressure on the callus elicits tenderness and a small amount of purulence discharge. The previous Achilles ulceration is all healed. Right foot with a dry callus of the anterior surface with no drainage noted. A 2nd lesion further up near the ankle is noted also to be healing. Ankle/foot/toe images: 1. 2. Results Labs 08/03/24 08:53 08/03/24 08:53 Labs: Abnormal lab results 08/03/24 Range/Units 08:53 WBC 4.0 L (4.8-10.8) X10*3/uL RBC 2.95 L (4.20-5.50) X10*6/uL Hgb 9.0 L (12.0-16.0) g/dl Hct 28.2 L (37.0-47.0) % RDW 17.9 H (11.0-16.0) % Plt Count 127 L (160-400) X10*3/uL Chloride 95 L (96-108) mmol/L Carbon Dioxide 30 H (22-29) mmol/L BUN 41 H (9-16) mg/dL Creatinine 6.91 H* (0.5-1.4) mg/dL Random Glucose 150 H (60-115) mg/dL Short CBC 08/03/24 Range/Units 08:53 WBC 4.0 L (4.8-10.8) X10*3/uL Hgb 9.0 L (12.0-16.0) g/dl Hct 28.2 L (37.0-47.0) % Plt Count 127 L (160-400) X10*3/uL BMP 08/03/24 08:53 Sodium 136 Potassium 4.3 D Chloride 95 L Carbon Dioxide 30 H BUN 41 H Creatinine 6.91 H* Calcium 8.6 All other labs normal. Assessment and Plan (1) Chronic ulcer of right foot due to diabetes mellitus: Status: Acute (2) Chronic ulcer of left foot due to diabetes mellitus: Status: Acute Plan Overall her foot wounds appear much improved from prior examinations. She does have an open wound with overlying callus in the left foot with some purulent discharge noted with light pressure. This would benefit from a debridement in the OR as the site is too tender to be performed of the bedside. In addition the right foot has an area of thickened callus which can be debrided at the same time in the OR. I reviewed the procedure, risks and alternatives in detail with the patient and she consents to a bilateral foot wound debridement. She will be added onto the operative schedule for tomorrow. Procedures Date of Service Date of Service: 08/03/24
--- NOTE | 2024-08-03 13:33 | P.PNIM_ITS ---
Subjective Subjective Date of Service: 08/03/24 Interval History: f/u on encephalopathy, concern for line bacteremia so far blood cultures remain negative Physical Exam 2 Vital Signs: Vital Signs: Last Vital Signs Temp 97.4 F 08/03/24 11:08 Pulse 77 08/03/24 11:08 Resp 18 08/03/24 11:08 BP 105/60 08/03/24 11:08 Pulse Ox 100 08/03/24 11:08 O2 Del Method Nasal Cannula 08/03/24 11:08 O2 Flow Rate 2 08/03/24 11:08 Oxygen Flow Rate 2 07/31/24 10:27 BMI result Body Mass Index 33.1 Const: Other: General: AOx3, no acute distress. Pt blind. Resp: CTA bilaterally CVS: S1, S2, RRR GI: +BS, no distention, right-sided tenderness without guarding or rebound tenderness Skin: Warm, dry. HD catheter without purulence. Neuro: Cranial nerves II-XII grossly intact bilaterally. Motor grossly intact bilaterally Extremities: No edema. Bilateral TMA. Chronic bilateral foot ulcers without obvious signs of infection. See ED visit chart for pictures. Psych: Appropriate affect Objective Data Active Medications Acetaminophen (Acetaminophen 325 Mg Tablet) 650 mg PO Q6H PRN PRN Reason: Pain, Mild 1-3,fever,headache Last Admin: 07/31/24 23:16 Dose: 650 mg Documented By: ALEJANDRA Acetaminophen (Acetaminophen 325 Mg Tablet) 650 mg PO Q4H PRN PRN Reason: mild pain Albuterol Sulfate (Albuterol Sulfate 90 Mcg 8 Gm Inhaler) 2 puff INHALE Q6H PRN PRN Reason: wheezing Calcium Carbonate (Calcium Carbonate 750 Mg Tab.Chew) 750 mg PO Q4H PRN PRN Reason: Heartburn Calcium Carbonate (Calcium Carbonate 750 Mg Tab.Chew) 750 mg PO BIDWM PRN PRN Reason: ACID REFLUX Carvedilol (Carvedilol 12.5 Mg Tablet) 12.5 mg PO BID [facility]; Protocol Last Admin: 08/03/24 08:44 Dose: 12.5 mg Documented By: BJ Diphenhydramine HCl (Diphenhydramine Hcl 50 Mg/Ml Vial) 25 mg IVPUSH Q6H PRN PRN Reason: Itching Last Admin: 08/03/24 11:34 Dose: 25 mg Documented By: BJ Docusate Sodium (Docusate Sodium 100 Mg Capsule) 100 mg PO BID PRN PRN Reason: Constipation Hydralazine HCl (Hydralazine Hcl 50 Mg Tablet) 50 mg PO TID [facility]; Protocol Last Admin: 08/03/24 08:42 Dose: 50 mg Documented By: BJ Hydromorphone HCl (Hydromorphone Hcl 0.5 Mg/0.5 Ml Syringe) 0.5 mg IVPUSH Q4H PRN; Protocol PRN Reason: Pain, Severe (Pain Scale 7-10) Last Admin: 08/03/24 12:53 Dose: 0.5 mg Documented By: BJ Daptomycin 600 mg/ Sodium (Chloride) 62 mls @ 100 mls/hr IV SA@1800 VASILE Last Infusion: 08/02/24 17:52 Dose: Infused Documented By: SHAHLA Daptomycin 400 mg/ Sodium (Chloride) 58 mls @ 100 mls/hr IV TUTH@1800 VASILE Cefepime HCl 1 gm/ Sodium (Chloride) 50 mls @ 100 mls/hr IV Q24H [facility] Last Infusion: 08/03/24 12:09 Dose: Infused Documented By: BJ Lidocaine (Lidocaine 4 % Patch Adh..Patch) 1 patch TRANSDERMA DAILY PRN PRN Reason: Pain Magnesium Hydroxide (Milk Of Magnesia 30 Ml Oral.Susp) 30 ml PO DAILY PRN PRN Reason: Constipation Melatonin (Melatonin 3 Mg Tablet) 6 mg PO BEDTIME PRN PRN Reason: Insomnia Ondansetron HCl (Ondansetron Hcl 4 Mg/2 Ml Vial) 4 mg IVPUSH Q8H PRN PRN Reason: Nausea and Vomiting Last Admin: 08/01/24 07:52 Dose: 4 mg Documented By: CASSIE Ondansetron HCl (Ondansetron Odt 4 Mg Tab.Rapdis) 4 mg TRANSLINGU Q8H PRN PRN Reason: nausea and vomiting Last Admin: 08/03/24 08:50 Dose: 4 mg Documented By: BJ Polyethylene Glycol (Polyethylene Glycol 3350 17 Gm Powd.Pack) 17 gm PO BID PRN PRN Reason: Constipation Sodium Chloride (0.9 % Sodium Chloride Flush 3 Ml Syringe) 3 ml IVFLUSH QSHIFT [facility] Last Admin: 08/03/24 08:45 Dose: 3 ml Documented By: BJ Labs 08/03/24 08:53 08/03/24 08:53 Labs: Laboratory Results - last 24 hr 08/03/24 08:53 MCV 95.6 MCH 30.5 MCHC 31.9 RDW 17.9 H Plt Count 127 L MPV 11.4 Absolute Nucleated RBC 0.000 Nucleated RBC % (auto) 0.0 Anion Gap 15 Estim Creat Clear Calc 11.1 Estimated GFR 7 Random Glucose 150 H Calcium 8.6 Microbiology Microbiology Results: Microbiology 07/31/24 10:57 Blood Culture - Preliminary Blood - Venous No growth after 48 hours. 07/31/24 10:42 Blood Culture - Preliminary Blood - Venous No growth after 48 hours. 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 Pt is admitted to the hospital for treatment and further evaluation of acute metabolic encephalopathy in the setting of likely catheter line infection with sepsis. Acute metabolic encephalopathy in the setting with concern for line infection Pt with confusion, shaking chills, N/V/abd pain, no longer confused Hx of multiple line infections with bacteremia Meets sepsis criteria with fever, tachycardia, and tachypnea; initial lactic acid 2.6 with repeat 0.6 Pt given IVF and started on broad-spectrum antibiotics in the ED Will treat with cefepime and daptomycin, started 07/31/2024 Infectious disease consulted. For now keep line and follow cultures, so far negative going into 48 hours Plan is to replace dialysis catheter on Friday 08/04 if blood culltures positive Follow line and blood cultures left foot with some purulent discharge For debridment in the OR tomorrow ESRD on HD Tu/Th/Sat Nephrology consult, follows with RTANE Follow BMP Monitor on telemetry Elevated troponin Initial troponin 72.6, in line with previous Pt with chronically elevated troponins No signs of ACS Monitor on telemetry Cju-vyaqswo-mpifdkdat type 2 diabetes With diabetic polyneuropathy/retinopathy Place on sliding scale insulin, diabetic diet HTN Continue carvedilol, hydralazine Chronic hypoxemic respiratory failure Not in acute exacerbation Pt on 3-4 L NC at home HRrEF Continue carvedilol Treat with dialysis as above Chronic pain with opioid seeking behavior Continue home oxycodone Avoid Dilaudid IV as much as possible Full Code DVT Prophylaxis: Pneumatic compression due to line replacement Pt will require a hospitalization of at least two nights for treatment of?acute metabolic encephalopathy likely from infected dialysis catheter with sepsis. Pt will require hospital level care for administration of IV antibiotics close monitoring of mentation and labs due to ESRD, and eventual line replacement after a short line holiday. Quality Stroke Does the patient have a stroke diagnosis?: No VTE Prior VTE?: No VTE Risk Level:: Medical - moderate - high VTE Device Contraindication: N/A - Device Ordered VTE Drug Contraindication: Treatment Not Indicated
[2024-08-04] VITALS (15 sets, daily range): BP systolic 105–155; BP diastolic 55–75; PULSE 73–86; RESP 16–19; TEMP 36–37; O2SAT 94–100
[2024-08-04] MEDS: diphenhydrAMINE HCL 50 MG/ML VIAL 25 MG IVPUSH ×4 (00:04→18:55)
[2024-08-04] MEDS: HYDROmorphone HCl 0.5 MG/0.5 ML SYRINGE IVPUSH ×6 (02:07→23:23)
--- NOTE | 2024-08-04 08:22 | P.PNIM_ITS ---
Subjective Subjective Date of Service: 08/04/24 Interval History: f/u on encephalopathy, concern for line bacteremia and fever so far blood cultures remain negative Physical Exam 2 Vital Signs: Vital Signs: Last Vital Signs Temp 97.5 F 08/04/24 07:24 Pulse 75 08/04/24 07:24 Resp 18 08/04/24 07:24 BP 122/60 08/04/24 07:24 Pulse Ox 100 08/04/24 07:24 O2 Del Method Nasal Cannula 08/04/24 07:24 O2 Flow Rate 2 08/04/24 07:24 Oxygen Flow Rate 2 07/31/24 10:27 BMI result Body Mass Index 33.1 Const: Other: General: AOx3, no acute distress. Pt blind. Resp: CTA bilaterally CVS: S1, S2, RRR GI: +BS, no distention, right-sided tenderness without guarding or rebound tenderness Skin: Warm, dry. HD catheter without purulence. Neuro: Cranial nerves II-XII grossly intact bilaterally. Motor grossly intact bilaterally Extremities: No edema. Bilateral TMA. Chronic bilateral foot ulcers without obvious signs of infection. See ED visit chart for pictures. Psych: Appropriate affect Objective Data Active Medications Acetaminophen (Acetaminophen 325 Mg Tablet) 650 mg PO Q6H PRN PRN Reason: Pain, Mild 1-3,fever,headache Last Admin: 07/31/24 23:16 Dose: 650 mg Documented By: ALEJANDRA Acetaminophen (Acetaminophen 325 Mg Tablet) 650 mg PO Q4H PRN PRN Reason: mild pain Albuterol Sulfate (Albuterol Sulfate 90 Mcg 8 Gm Inhaler) 2 puff INHALE Q6H PRN PRN Reason: wheezing Calcium Carbonate (Calcium Carbonate 750 Mg Tab.Chew) 750 mg PO Q4H PRN PRN Reason: Heartburn Calcium Carbonate (Calcium Carbonate 750 Mg Tab.Chew) 750 mg PO BIDWM PRN PRN Reason: ACID REFLUX Carvedilol (Carvedilol 12.5 Mg Tablet) 12.5 mg PO BID [facility]; Protocol Last Admin: 08/03/24 21:27 Dose: 12.5 mg Documented By: KENJI Diphenhydramine HCl (Diphenhydramine Hcl 50 Mg/Ml Vial) 25 mg IVPUSH Q6H PRN PRN Reason: Itching Last Admin: 08/04/24 06:11 Dose: 25 mg Documented By: KENJI Docusate Sodium (Docusate Sodium 100 Mg Capsule) 100 mg PO BID PRN PRN Reason: Constipation Hydralazine HCl (Hydralazine Hcl 50 Mg Tablet) 50 mg PO TID [facility]; Protocol Last Admin: 08/03/24 21:28 Dose: 50 mg Documented By: KENJI Hydromorphone HCl (Hydromorphone Hcl 0.5 Mg/0.5 Ml Syringe) 0.5 mg IVPUSH Q4H PRN; Protocol PRN Reason: Pain, Severe (Pain Scale 7-10) Last Admin: 08/04/24 06:08 Dose: 0.5 mg Documented By: KENJI Daptomycin 600 mg/ Sodium (Chloride) 62 mls @ 100 mls/hr IV SA@1800 VASILE Last Infusion: 08/02/24 17:52 Dose: Infused Documented By: SHAHLA Daptomycin 400 mg/ Sodium (Chloride) 58 mls @ 100 mls/hr IV TUTH@1800 VASILE Cefepime HCl 1 gm/ Sodium (Chloride) 50 mls @ 100 mls/hr IV Q24H [facility] Last Infusion: 08/03/24 12:09 Dose: Infused Documented By: BJ Lidocaine (Lidocaine 4 % Patch Adh..Patch) 1 patch TRANSDERMA DAILY PRN PRN Reason: Pain Magnesium Hydroxide (Milk Of Magnesia 30 Ml Oral.Susp) 30 ml PO DAILY PRN PRN Reason: Constipation Melatonin (Melatonin 3 Mg Tablet) 6 mg PO BEDTIME PRN PRN Reason: Insomnia Ondansetron HCl (Ondansetron Hcl 4 Mg/2 Ml Vial) 4 mg IVPUSH Q8H PRN PRN Reason: Nausea and Vomiting Last Admin: 08/01/24 07:52 Dose: 4 mg Documented By: CASSIE Ondansetron HCl (Ondansetron Odt 4 Mg Tab.Rapdis) 4 mg TRANSLINGU Q8H PRN PRN Reason: nausea and vomiting Last Admin: 08/03/24 08:50 Dose: 4 mg Documented By: BJ Polyethylene Glycol (Polyethylene Glycol 3350 17 Gm Powd.Pack) 17 gm PO BID PRN PRN Reason: Constipation Sodium Chloride (0.9 % Sodium Chloride Flush 3 Ml Syringe) 3 ml IVFLUSH QSHIFT [facility] Last Admin: 08/03/24 21:31 Dose: 3 ml Documented By: KENJI Labs 08/03/24 08:53 08/03/24 08:53 Labs: Laboratory Results - last 24 hr 08/03/24 08:53 MCV 95.6 MCH 30.5 MCHC 31.9 RDW 17.9 H Plt Count 127 L MPV 11.4 Absolute Nucleated RBC 0.000 Nucleated RBC % (auto) 0.0 Anion Gap 15 Estim Creat Clear Calc 11.1 Estimated GFR 7 Random Glucose 150 H Calcium 8.6 Assessment and Plan (1) ESRD (end stage renal disease): Status: Acute (2) End stage renal disease on dialysis: Status: Acute Plan Pt is a 34-year-old female with a PMH significant for?ESRD on HD //Sun, qej-eboprxh-xpaoayada 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 Pt is admitted to the hospital for treatment and further evaluation of acute metabolic encephalopathy in the setting of likely catheter line infection with sepsis. Acute metabolic encephalopathy in the setting fever and concern of recurrent bacteremia, line sepsis encephalopathy resolved Concern for recurrent bacteremia, line sepsis, with initial high fever Empirically started on Cefepime and Daptomycin on 08/01, so far blood cultures are negative x 48, so do no remove dialysis line ID following, likely will stop IV Abx left foot with some purulent discharge ? possible source of infection For debridment in the OR today by Dr. Collado ESRD on HD / Nephrology consult, follows with RTANE Elevated troponin Initial troponin 72.6, in line with previous Pt with chronically elevated troponins No signs of ACS Monitor on telemetry Ojc-mykzisl-iqiffcjyz type 2 diabetes With diabetic polyneuropathy/retinopathy Place on sliding scale insulin, diabetic diet HTN Continue carvedilol, hydralazine Chronic hypoxemic respiratory failure Not in acute exacerbation Pt on 3-4 L NC at home HRrEF Continue carvedilol Treat with dialysis as above Chronic pain with opioid seeking behavior Continue home oxycodone Avoid Dilaudid IV as much as possible Full Code DVT Prophylaxis: Pneumatic compression due to line replacement Quality Stroke Does the patient have a stroke diagnosis?: No VTE Prior VTE?: No VTE Risk Level:: Medical - moderate - high VTE Device Contraindication: N/A - Device Ordered VTE Drug Contraindication: Treatment Not Indicated
[2024-08-04] MEDS: carvediloL 12.5 MG TABLET PO ×2 (09:00→21:25)
[2024-08-04] MEDS: hydrALAZINE HCl 50 MG TABLET PO ×2 (09:01→21:24)
[2024-08-04] MEDS: 0.9 % Sodium Chloride Flush 3 ML SYRINGE IVFLUSH ×2 (09:03→21:27)
[2024-08-04 09:24] LABS: Glucose, Whole Blood 129 mg/dL (60-115)
[2024-08-04] MEDS: cefEPime HCl 1 GM in 0.9 % Sodium Chloride 50 ML IV (12:43)
--- NOTE | 2024-08-04 14:14 | MHC.CM.PN ---
PER MD ROUNDS, PT MAY BE CLEARED TO DC TOMORROW DCP: [facility] [employer] AND HD SISTER TO TRANSPORT
--- NOTE | 2024-08-04 14:28 | P.PNNP_ITS ---
Subjective Subjective Date of Service: 08/04/24 Interval history: Sen and examined, events noted HD TTS Physical Exam 2 Vital Signs: Vital Signs: Last Vital Signs Temp 98.6 F 08/04/24 11:28 Pulse 86 08/04/24 11:28 Resp 18 08/04/24 11:28 BP 116/55 L 08/04/24 11:28 Pulse Ox 98 08/04/24 11:28 O2 Del Method Nasal Cannula 08/04/24 11:28 O2 Flow Rate 2 08/04/24 11:28 Oxygen Flow Rate 2 07/31/24 10:27 BMI result Body Mass Index 33.1 Const: Other: General: AOx3, no acute distress. Pt blind. Resp: CTA bilaterally CVS: S1, S2, RRR GI: +BS, no distention, right-sided tenderness without guarding or rebound tenderness Skin: Warm, dry. HD catheter without purulence. Neuro: Cranial nerves II-XII grossly intact bilaterally. Motor grossly intact bilaterally Extremities: No edema. Bilateral TMA. Chronic bilateral foot ulcers without obvious signs of infection. See ED visit chart for pictures. Psych: Appropriate affect General: cooperative and no acute distress Nutritional Appearance: well nourished Orientation/consciousness: patient oriented x3 HEENT: Head: Yes normal to inspection Face and sinus: Yes normal facial exam Mouth: Normal oral and palatal mucosa present Teeth and gingiva: d entition normal Eyes: Other: Legal blindness Pupils: Equal, round and reactive pupils present Chest: Other: right dialysis cath site chest clear Resp: Effort & Inspection: normal respiratory effort Cardio: Rate: regular rate Rhythm: regular rhythm GI: Inspection: Yes normal to inspection Palpation (GI): Soft to palpation and nontender : General: Yes no CVA tenderness Back/Spine/Pelvis: Back: no CVA tenderness Skin: General skin exam: no rashes or lesions noted Neuro: General: patient oriented x3 and moves all extremities Cranial nerves: Yes Equal, round and reactive pupils present Extrem: Other: Left foot with a callus wound on the plantar surface midfoot measuring approximately 3 cm in diameter. Light pressure on the callus elicits tenderness and a small amount of purulence discharge. The previous Achilles ulceration is all healed. Right foot with a dry callus of the anterior surface with no drainage noted. A 2nd lesion further up near the ankle is noted also to be healing. Psych: Appearance: grossly normal Objective Data Labs 08/03/24 08:53 08/03/24 08:53 Labs: Laboratory Results - last 24 hr 08/04/24 09:20 POC Glucose 129 H Microbiology Microbiology Results: Microbiology 07/31/24 10:57 Blood - Venous Blood Culture - Preliminary No growth after 48 hours. 07/31/24 10:42 Blood - Venous Blood Culture - Preliminary No growth after 48 hours. 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 Pt is admitted to the hospital for treatment and further evaluation of acute metabolic encephalopathy and question of recurrent HD catheter line infection with sepsis. Thus far bldd cult neg ID seeing PT and rec line not be taken out if Bld cult remain neg left foot with some purulent discharge ? possible source of infection For debridment in the OR today by Dr. Collado ESRD on HD //Sun--next HD schedueld 08/05 HTN controlled Continue carvedilol, hydralazine Chronic hypoxemic respiratory failure Not in acute exacerbation Pt on 3-4 L NC at home Anemia: mutlofact including epo def state REC: HD 08/05 and cont TTS; ABx per ID Will follow w team Time Spent With Patient Time: Total time managing care of this patient today ____ minutes. Progress Note: Quality Stroke Does the patient have a stroke diagnosis?: No
[2024-08-04 16:50] LABS: Glucose, Whole Blood 113 mg/dL (60-115)
--- NOTE | 2024-08-04 17:30 | MHC.SHP ---
Pre-Procedural Eval Section A - 24 Hr Update-Section A only Date of Service: 08/04/24 The patient is an INPATIENT: Yes Changes since office visit: No Cold of Flu in the past 2 weeks, No New Medical Problems, No Changes in Medication and No Patient answered all questions The patient has been examined within 24 hours of the surgical procedure. The History & Physical has been completed within 30 days and I have reviewed it.: Yes Section B - Complete if H&P > 30 days Chief Complaint: AMS ?Line Infection Allergies: Allergies Allergy/AdvReac Type Severity Reaction Status Date / Time gabapentin Allergy Severe Facial Verified 08/04/24 16:38 Swelling tramadol Allergy Severe Facial Verified 08/04/24 16:38 Swelling vancomycin Allergy Severe Anaphylaxis Verified 08/04/24 16:38 azithromycin [From Zithromax] Allergy Intermediate Hives Verified 08/04/24 16:38 morphine [MORPHINE] Allergy Intermediate Itching Verified 08/04/24 16:38 Plan I have reviewed the history and physical and performed a pertinent physical examination on my patient. No changes have occurred unless specified. Time Spent With Patient Time: Total time managing care of this patient today ____ minutes.
--- NOTE | 2024-08-04 17:30 | PM.EVENT ---
Event Note Date of Service: 08/04/24 Event Note: [age] year old female well known to me She has a very thick callus on the plantar aspect of the left foot and an ulcer with eschar on the dorsal aspect of the right foot I explained to her the technique of sharp excisional debridement of both of these ulcers I explained the risks, benefits, and alternatives She understands what to expect as well She has given consent Time Spent With Patient Time: Total time managing care of this patient today ____ minutes.
--- NOTE | 2024-08-04 17:30 | HO.ANESPROP2 ---
HPI - Anesthesia Eval Consult details Narrative: Feet ulcers PMFSH Active Problems Active Problems: All Active Problems (Updated 07/31/24 @ 12:18 by JOVON Frank) Acute metabolic encephalopathy (Acute) Sepsis (Acute) ESRD (end stage renal disease) (Acute) Bacteremia (Acute) Hypoxia (Acute) End stage renal disease on dialysis (Acute) Acute hyperkalemia (Acute) Hypertensive emergency (Acute) Diabetes (Acute) Gastroparesis (Acute) Bacteremia (Acute) Anemia (Acute) CLABSI (central line-associated bloodstream infection) (Acute) COVID-19 (Acute) Noncompliance (Acute) Back pain (Acute) Chronic ulcer of right foot due to diabetes mellitus (Acute) Chronic ulcer of left foot due to diabetes mellitus (Acute) Opioid dependence (Acute) Chronic ulcer of left foot due to diabetes mellitus (Acute) Cerebral infarction (Acute) Hyponatremia (Acute) Plantar ulcer of left foot (Acute) Renal failure (Acute) PAD (peripheral artery disease) (Acute) Past Medical History Medical History ESRD on hemodialysis ESRD (end stage renal disease) Hypotonic neurogenic bladder Diabetic polyneuropathy ESRD (end stage renal disease) on dialysis Hypertensive emergency Non-compliance with renal dialysis Decompensated heart failure Congestive heart failure Renal failure Hypertension, uncontrolled Medical non-compliance Pericarditis Unspecified hypertension, condition or complication Metabolic acidosis Gastroparesis End stage chronic kidney disease Chronic kidney disease Anemia Chronic foot ulcer Plantar ulcer of left foot Major depressive disorder, single episode, severe Non-compliance with renal dialysis Hypertensive urgency MDD (major depressive disorder), recurrent episode MDD (major depressive disorder) Renal failure Foot ulcer CKD (chronic kidney disease) Hypertension Diabetic foot Hyperkalemia Vomiting Renal failure Hypertension Migraine Chronic pain ESRD on dialysis Non-compliance with renal dialysis Hypertension End-stage renal disease (ESRD) Diabetic foot ulcer associated with type 2 diabetes mellitus Diabetes ESRD needing dialysis Cardiomyopathy HFrEF (heart failure with reduced ejection fraction) delivery delivered Anemia in chronic kidney disease (CKD) CKD (chronic kidney disease) Headache, migraine Abnormal finding on echocardiogram Elevated troponin Chest pain Acute worsening of stage 3 chronic kidney disease Generalized edema Sepsis Cellulitis Pleural effusion CHF (congestive heart failure) (~06/07/22) Tachycardia Atypical chest pain Bone infection PAD (peripheral artery disease) Severe anemia Cellulitis and abscess of foot DM foot ulcer Osteomyelitis Asthma Depression with anxiety Diabetic retinopathy Type 2 diabetes mellitus with hyperglycemia, with long-term current use of insulin Blind right eye Diabetes Back pain Family History Family History Mother Coronary artery disease Myocardial infarction Stroke Diabetes mellitus Father Myocardial infarction Family history of problems with anesthesia: No Surgical History Surgical History Tubal ligation status Previous section Hx laparoscopic cholecystectomy Hx of surgical procedure (~09/11/23) 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 History of Problems with Anesthesia: No Social History Social History Household Members: Family Household Members Other:: sister Housing: Apartment Are you a primary skin care consultant to a significant other at home: No Do you presently have visiting nurse or other home services: No Unable to assess alcohol history related to: Unknown Alcohol intake: never Comment: Patient refusing assistance OOB and alarms as well as camera despite educat Patient Tobacco Use Status: Never used Tobacco e-Cigarette/Vaping Use: Never Used Second Hand Smoke Exposure: No Use of substances other than those prescribed or required for medical reasons: No Currently Displaying Signs/Symptoms of Drug Intoxication Withdrawal: No Have you been hit, kicked, punched, or otherwise hurt by someone within the past year? If so, by whom?: No Do you feel safe in your current relationship?: Yes Is there a partner from a previous relationship who is making you feel unsafe now?: No Are you made to feel afraid or neglected: No Are you DNR?: No Advance Directives: Yes Advance Directives Information Provided: Yes Advance Directives on File: Yes Advance Directives Date on File: 08/28/23 Do you have a plan to hurt others: No Plan Recently lost weight without trying: No Nutrition Risks: No Nutritional Risk Patient : No : No service: No Current occupational status: unemployed and disabled Gender identity: Female Meds Allergies Allergy/AdvReac Type Severity Reaction Status Date / Time gabapentin Allergy Severe Facial Verified 08/04/24 16:38 Swelling tramadol Allergy Severe Facial Verified 08/04/24 16:38 Swelling vancomycin Allergy Severe Anaphylaxis Verified 08/04/24 16:38 azithromycin [From Zithromax] Allergy Intermediate Hives Verified 08/04/24 16:38 morphine [MORPHINE] Allergy Intermediate Itching Verified 08/04/24 16:38 Active Medications: Current Medications Acetaminophen (Acetaminophen 325 Mg Tablet) 650 mg PO Q6H PRN PRN Reason: Pain, Mild 1-3,fever,headache Last Admin: 07/31/24 23:16 Dose: 650 mg Albuterol Sulfate (Albuterol Sulfate 90 Mcg 8 Gm Inhaler) 2 puff INHALE Q6H PRN PRN Reason: wheezing Calcium Carbonate (Calcium Carbonate 750 Mg Tab.Chew) 750 mg PO Q4H PRN PRN Reason: Heartburn Carvedilol (Carvedilol 12.5 Mg Tablet) 12.5 mg PO BID [facility]; Protocol Last Admin: 08/04/24 09:00 Dose: 12.5 mg Diphenhydramine HCl (Diphenhydramine Hcl 50 Mg/Ml Vial) 25 mg IVPUSH Q6H PRN PRN Reason: Itching Last Admin: 08/04/24 12:43 Dose: 25 mg Docusate Sodium (Docusate Sodium 100 Mg Capsule) 100 mg PO BID PRN PRN Reason: Constipation Hydralazine HCl (Hydralazine Hcl 50 Mg Tablet) 50 mg PO TID [facility]; Protocol Last Admin: 08/04/24 14:47 Dose: Not Given Hydromorphone HCl (Hydromorphone Hcl 0.5 Mg/0.5 Ml Syringe) 0.5 mg IVPUSH Q4H PRN; Protocol PRN Reason: Pain, Severe (Pain Scale 7-10) Last Admin: 08/04/24 14:41 Dose: 0.5 mg Daptomycin 600 mg/ Sodium (Chloride) 62 mls @ 100 mls/hr IV SA@1800 VASILE Last Infusion: 08/02/24 17:52 Dose: Infused Daptomycin 400 mg/ Sodium (Chloride) 58 mls @ 100 mls/hr IV TUTH@1800 VASILE Cefepime HCl 1 gm/ Sodium (Chloride) 50 mls @ 100 mls/hr IV Q24H VASILE Last Infusion: 08/04/24 13:51 Dose: Infused Lidocaine (Lidocaine 4 % Patch Adh..Patch) 1 patch TRANSDERMA DAILY PRN PRN Reason: Pain Magnesium Hydroxide (Milk Of Magnesia 30 Ml Oral.Susp) 30 ml PO DAILY PRN PRN Reason: Constipation Melatonin (Melatonin 3 Mg Tablet) 6 mg PO BEDTIME PRN PRN Reason: Insomnia Ondansetron HCl (Ondansetron Hcl 4 Mg/2 Ml Vial) 4 mg IVPUSH Q8H PRN PRN Reason: Nausea and Vomiting Last Admin: 08/01/24 07:52 Dose: 4 mg Ondansetron HCl (Ondansetron Odt 4 Mg Tab.Rapdis) 4 mg TRANSLINGU Q8H PRN PRN Reason: nausea and vomiting Last Admin: 08/03/24 08:50 Dose: 4 mg Polyethylene Glycol (Polyethylene Glycol 3350 17 Gm Powd.Pack) 17 gm PO BID PRN PRN Reason: Constipation Sodium Chloride (0.9 % Sodium Chloride Flush 3 Ml Syringe) 3 ml IVFLUSH QSHIFT VASILE Last Admin: 08/04/24 17:18 Dose: Not Given Home Medications ?Medication ?Instructions ?Recorded ?Confirmed ?Last Taken ?Type albuterol sulfate 90 mcg/actuation 2 puff inhalation Q6H PRN wheezing 01/15/24 07/31/24 Unknown History aerosol inhaler (Ventolin HFA) lidocaine 5 % topical patch 1 patch topical DAILY PRN Pain 01/15/24 07/31/24 02/24/24 History nitroglycerin 0.4 mg sublingual 0.4 mg sublingual DIRECTED PRN 01/15/24 07/31/24 Unknown History tablet Angina acetaminophen 325 mg tablet 650 mg PO Q4H PRN mild pain 03/11/24 07/31/24 Unknown History oxycodone 5 mg tablet 5 mg PO Q8H PRN Pain 05/25/24 07/31/24 06/25/24 History calcium carbonate (Tums) 200 mg PO TIDWM 07/03/24 07/31/24 Unknown History docusate sodium 100 mg capsule 100 mg PO BID PRN Constipation 07/31/24 07/31/24 Unknown History (Colace) polyethylene glycol 3350 17 17 g PO BID PRN Constipation 07/31/24 07/31/24 Unknown History gram/dose oral powder (Miralax) Exam Height,Weight and Vital Signs: Height 5 ft 2 in Weight 82.2 kg Last Vital Signs Temp 97.3 F 08/04/24 16:39 Pulse 76 08/04/24 16:39 Resp 16 08/04/24 16:39 BP 155/75 H 08/04/24 16:39 Pulse Ox 100 08/04/24 16:39 O2 Del Method Nasal Cannula 08/04/24 16:39 O2 Flow Rate 3 08/04/24 16:39 Oxygen Flow Rate 2 07/31/24 10:27 Pertinent Lab Results Pertinent Lab Results: Laboratory Tests 07/31/24 07/31/24 07/31/24 10:42 10:50 13:25 WBC 8.4 RBC 2.65 L Hgb 8.0 L Hct 24.6 L MCV 92.8 MCH 30.2 MCHC 32.5 RDW 17.9 H Plt Count 152 L D MPV 11.8 Immature Gran % (Auto) 0.5 H Neut % (Auto) 81.4 H Lymph % (Auto) 6.9 L [place] % (Auto) 8.9 Eos % (Auto) 1.9 Baso % (Auto) 0.4 Lymph # (Auto) 0.6 L [place] # (Auto) 0.7 Eos # (Auto) 0.2 Baso # (Auto) 0.0 Abs Immat Gran (auto) 0.04 H Absolute Neuts (auto) 6.8 Absolute Nucleated RBC 0.000 Nucleated RBC % (auto) 0.0 VBG pH 7.40 VBG pCO2 37 VBG pO2 53 VBG HCO3 23 VBG O2 Saturation 75.0 VBG Base Excess -0.4 Sodium 141 Potassium 4.8 Chloride 102 Carbon Dioxide 23 Anion Gap 21 H BUN 73 H Creatinine 9.56 H* Estim Creat Clear Calc 8.5 Estimated GFR 5 POC Glucose Random Glucose 84 Lactic Acid 2.6 H* Lactic Acid F/U @ 2Hr 0.6 Calcium 8.4 Magnesium 2.1 Total Bilirubin 1.3 H Direct Bilirubin 0.6 H AST 25 ALT 13 Alkaline Phosphatase 225 H Troponin I High Sens 72.6 H* C-Reactive Protein 3.01 H B-Natriuretic Peptide 3098 H Total Protein 7.9 Albumin 3.9 Ethyl Alcohol < 10 Influenza Type A (PCR) NEGATIVE Influenza Type B (PCR) NEGATIVE RSV RNA Qual (PCR) NEGATIVE SARS-CoV-2 RNA (RT-PCR) NEGATIVE 08/01/24 08/01/24 08/02/24 06:47 07:13 06:37 WBC 6.4 4.2 L RBC 2.55 L 2.50 L Hgb 7.8 L 7.7 L Hct 24.1 L 23.6 L MCV 94.5 94.4 MCH 30.6 30.8 MCHC 32.4 32.6 RDW 18.3 H 17.6 H Plt Count 114 L 110 L MPV 12.1 11.8 Immature Gran % (Auto) Neut % (Auto) Lymph % (Auto) [place] % (Auto) Eos % (Auto) Baso % (Auto) Lymph # (Auto) [place] # (Auto) Eos # (Auto) Baso # (Auto) Abs Immat Gran (auto) Absolute Neuts (auto) Absolute Nucleated RBC 0.000 0.020 H Nucleated RBC % (auto) 0.0 0.5 H VBG pH VBG pCO2 VBG pO2 VBG HCO3 VBG O2 Saturation VBG Base Excess Sodium 136 136 Potassium 4.1 3.5 Chloride 97 97 Carbon Dioxide 29 27 Anion Gap 14 16 BUN 44 H 39 H Creatinine 6.95 H* 5.83 H* Estim Creat Clear Calc 11.1 13.2 Estimated GFR 7 8 POC Glucose 78 Random Glucose 81 99 Lactic Acid Lactic Acid F/U @ 2Hr Calcium 9.2 D 8.5 D Magnesium Total Bilirubin Direct Bilirubin AST ALT Alkaline Phosphatase Troponin I High Sens C-Reactive Protein B-Natriuretic Peptide Total Protein Albumin Ethyl Alcohol Influenza Type A (PCR) Influenza Type B (PCR) RSV RNA Qual (PCR) SARS-CoV-2 RNA (RT-PCR) 08/03/24 08/04/24 08/04/24 08:53 09:20 16:46 WBC 4.0 L RBC 2.95 L Hgb 9.0 L Hct 28.2 L MCV 95.6 MCH 30.5 MCHC 31.9 RDW 17.9 H Plt Count 127 L MPV 11.4 Immature Gran % (Auto) Neut % (Auto) Lymph % (Auto) [place] % (Auto) Eos % (Auto) Baso % (Auto) Lymph # (Auto) [place] # (Auto) Eos # (Auto) Baso # (Auto) Abs Immat Gran (auto) Absolute Neuts (auto) Absolute Nucleated RBC 0.000 Nucleated RBC % (auto) 0.0 VBG pH VBG pCO2 VBG pO2 VBG HCO3 VBG O2 Saturation VBG Base Excess Sodium 136 Potassium 4.3 D Chloride 95 L Carbon Dioxide 30 H Anion Gap 15 BUN 41 H Creatinine 6.91 H* Estim Creat Clear Calc 11.1 Estimated GFR 7 POC Glucose 129 H 113 Random Glucose 150 H Lactic Acid Lactic Acid F/U @ 2Hr Calcium 8.6 Magnesium Total Bilirubin Direct Bilirubin AST ALT Alkaline Phosphatase Troponin I High Sens C-Reactive Protein B-Natriuretic Peptide Total Protein Albumin Ethyl Alcohol Influenza Type A (PCR) Influenza Type B (PCR) RSV RNA Qual (PCR) SARS-CoV-2 RNA (RT-PCR) Airway Mallampati Class: II TM Dist: >3cm Neck ROM: Full Loose/Missing/Broken Teeth: No Heart: RRR Lungs: CTA Assessment and Plan Assessment Anesthesia Assessment: Anesthesia Plan Discussed Final Anesthetic Review Family History of Problems with Anesthesia: No History of Problems with Anesthesia: No NPO: Yes ASA Class: IV and Emergency Final Preanesthetic Review: No Changes in Pt Med Stat, Meds/Allgs Chart Reviewed, Consent Obtained/Reviewed and Anes Risks/Benef Reviewed Patient Risk: High Procedure Risk: Low Anesthetic Plan Anesthetic Plan: GA Disposition: Standard PACU
--- NOTE | 2024-08-04 18:14 | W.PM.OPN ---
Operative Note Operative Note Date of Service: 08/04/24 Narrative: Preop diagnosis: Ulcer with superficial eschar dorsal aspect of the right foot and thick callus with pus and necrotic tissue, on the plantar aspect of the left foot Postop diagnosis: The same Procedure: Sharp excisional debridement superficial eschar dorsal aspect of the right foot and thick callus on the plantar aspect of the left foot Surgeon: Tu Rajput MD Clinical Laboratory Technician: JOVON Sauceda The patient is a 34 year female with multiple medical problems including end-stage renal disease, diabetes, with history of transmetatarsal amputations on both the right and the left feet, with an ulcer with superficial eschar on the right foot dorsally and very thick callus with pus and necrotic tissue on the plantar aspect of the left foot. She is here therefore for debridement. She understood the technique of the planned procedure as well as the risks, benefits, and alternatives She was brought to the operating room. She was placed supine under general anesthesia via laryngeal mask airway. The right and left feet were both prepped and draped in usual sterile fashion. A surgical time-out was done. The patient was receiving scheduled IV antibiotics I proceeded to do sharp excisional debridement of the full-thickness of the skin on the dorsal aspect of the left foot to remove eschar completely. This was done with a blade 15. We did this down to viable looking skin This area excised was about 1.2 x 1.2 cm. I then proceeded to do sharp excisional debridement of the very thick callus of the left foot at the plantar aspect. There was note of some pus in the subcutaneous layer. Cultures were taken. I used the Marks scissors as well as blade 15 to excise full-thickness of the skin and partial thickness of the subcutaneous which comprised the very thick callus. The area excised was about 3 x 2.5 cm. I then applied wet-to-dry dressings on both debridement sites. Both feet were then wrapped with Kerlix roll. The procedure was then completed. The patient tolerated the procedure well. There were no immediate complications. There was minimal blood loss. The patient was then extubated without difficulty and transferred to the recovery room with stable vital signs
[2024-08-05] MEDS: diphenhydrAMINE HCL 50 MG/ML VIAL 25 MG IVPUSH ×4 (01:05→20:21)
[2024-08-05 03:15] VITALS: BP 114/56; PULSE 83; RESP 18; TEMP 36.1; O2SAT 93
[2024-08-05] MEDS: HYDROmorphone HCl 0.5 MG/0.5 ML SYRINGE IVPUSH ×4 (03:33→16:20)
--- NOTE | 2024-08-05 07:53 | PC.NURSE ---
Attempted to get blood sugar POC, pt refusing. MD Diane aware.
[2024-08-05 08:01] VITALS: BP 174/77; PULSE 83; RESP 18; TEMP 36.5; O2SAT 96
[2024-08-05] MEDS: ondansetron HCL 4 MG/2 ML VIAL IVPUSH (08:06)
--- NOTE | 2024-08-05 08:47 | P.PNGS_ITS ---
Subjective Subjective Date of Service: 08/05/24 <Regino Sauceda PA-C - Last Filed: 08/05/24 09:10> 08/05/24 <Tu Rajput MD - Last Filed: 08/05/24 09:01> Interval history: patient complains of pain in both feet at the site of debridement <Regino Sauceda PA-C - Last Filed: 08/05/24 09:10> Physical Exam 2 Vital Signs: Vital Signs: Last Vital Signs Temp 97.7 F 08/05/24 08:01 Pulse 83 08/05/24 08:01 Resp 18 08/05/24 08:01 BP 174/77 H 08/05/24 08:01 Pulse Ox 96 08/05/24 08:01 O2 Del Method Room Air 08/05/24 08:01 O2 Flow Rate 3 08/04/24 23:21 Oxygen Flow Rate 2 07/31/24 10:27 BMI result Body Mass Index 33.1 <Regino Sauceda PA-C - Last Filed: 08/05/24 09:10> Const: General: no acute distress, alert and awake; No comfortable <Regino Sauceda PA-C - Last Filed: 08/05/24 09:10> Orientation/consciousness: patient oriented x3 <LEXA Gomez Last Filed: 08/05/24 09:10> Skin: Other: Right foot ulcer on the dorsum of the foot appears to be healthy tissue, no areas of necrosis. Left foot, plantar aspect of the foot appears to be healthy tissue, mild amounts of dried blood on the dressings. <Regino Sauceda PA-C - Last Filed: 08/05/24 09:10> Neuro: General: patient oriented x3 <Regino Sauceda PA-C - Last Filed: 08/05/24 09:10> Objective Data Active Medications Acetaminophen (Acetaminophen 325 Mg Tablet) 650 mg PO Q6H PRN PRN Reason: Pain, Mild 1-3,fever,headache Last Admin: 07/31/24 23:16 Dose: 650 mg Documented By: ALEJANDRA Albuterol Sulfate (Albuterol Sulfate 90 Mcg 8 Gm Inhaler) 2 puff INHALE Q6H PRN PRN Reason: wheezing Calcium Carbonate (Calcium Carbonate 750 Mg Tab.Chew) 750 mg PO Q4H PRN PRN Reason: Heartburn Carvedilol (Carvedilol 12.5 Mg Tablet) 12.5 mg PO BID [facility]; Protocol Last Admin: 08/05/24 08:38 Dose: Not Given Documented By: NEEMA Non-Admin Reason: pt vomiting Dextrose (Dextrose 50 % 25 Gm/50 Ml Syringe) 25 gm IVPUSH Q15M PRN; Protocol PRN Reason: per Hypoglycemia Standing Ord. Diphenhydramine HCl (Diphenhydramine Hcl 50 Mg/Ml Vial) 25 mg IVPUSH Q6H PRN PRN Reason: Itching Last Admin: 08/05/24 08:01 Dose: 25 mg Documented By: NEEMA Docusate Sodium (Docusate Sodium 100 Mg Capsule) 100 mg PO BID PRN PRN Reason: Constipation Glucose (Glucose Gel 15 Gm Gel..Gram.) 15 gm PO Q15M PRN; Protocol PRN Reason: per Hypoglycemia Standing Ord. Hydralazine HCl (Hydralazine Hcl 50 Mg Tablet) 50 mg PO TID [facility]; Protocol Last Admin: 08/05/24 08:38 Dose: Not Given Documented By: NEEMA Non-Admin Reason: pt vomitting Hydromorphone HCl (Hydromorphone Hcl 0.5 Mg/0.5 Ml Syringe) 0.5 mg IVPUSH Q4H PRN; Protocol PRN Reason: Pain, Severe (Pain Scale 7-10) Last Admin: 08/05/24 07:59 Dose: 0.5 mg Documented By: NEEMA Daptomycin 600 mg/ Sodium (Chloride) 62 mls @ 100 mls/hr IV SA@1800 VASILE Last Infusion: 08/02/24 17:52 Dose: Infused Documented By: SHAHLA Daptomycin 400 mg/ Sodium (Chloride) 58 mls @ 100 mls/hr IV TUTH@1800 VASILE Cefepime HCl 1 gm/ Sodium (Chloride) 50 mls @ 100 mls/hr IV Q24H VASILE Last Infusion: 08/04/24 13:51 Dose: Infused Documented By: NETO Insulin Human Lispro (Insulin Lispro 100 Unit/Ml 3 Ml Vial) 0 unit SUBCUT QIDACHS [facility]; Protocol Lidocaine (Lidocaine 4 % Patch Adh..Patch) 1 patch TRANSDERMA DAILY PRN PRN Reason: Pain Magnesium Hydroxide (Milk Of Magnesia 30 Ml Oral.Susp) 30 ml PO DAILY PRN PRN Reason: Constipation Melatonin (Melatonin 3 Mg Tablet) 6 mg PO BEDTIME PRN PRN Reason: Insomnia Ondansetron HCl (Ondansetron Hcl 4 Mg/2 Ml Vial) 4 mg IVPUSH Q8H PRN PRN Reason: Nausea and Vomiting Last Admin: 08/05/24 08:06 Dose: 4 mg Documented By: NEEMA Ondansetron HCl (Ondansetron Odt 4 Mg Tab.Rapdis) 4 mg TRANSLINGU Q8H PRN PRN Reason: nausea and vomiting Last Admin: 08/03/24 08:50 Dose: 4 mg Documented By: BJ Oxycodone HCl (Oxycodone Hcl Immed Release 5 Mg Tablet) 5 mg PO Q4H PRN PRN Reason: Pain, Moderate(Pain Scale 4-6) Polyethylene Glycol (Polyethylene Glycol 3350 17 Gm Powd.Pack) 17 gm PO BID PRN PRN Reason: Constipation Sodium Chloride (0.9 % Sodium Chloride Flush 3 Ml Syringe) [facility] Last Admin: 08/05/24 08:36 Dose: Not Given Documented By: NEEMA Non-Admin Reason: Previously Administered <Regino Sauceda PA-C - Last Filed: 08/05/24 09:10> Labs CBC & Chem 7: 08/03/24 08:53 08/03/24 08:53 <Regino Sauceda PA-C - Last Filed: 08/05/24 09:10> Labs: Laboratory Results - last 24 hr 08/04/24 08/04/24 09:20 16:46 POC Glucose 129 H 113 <Regino Sauceda PA-C - Last Filed: 08/05/24 09:10> Microbiology Microbiology Results: Microbiology 08/04/24 18:23 Gram Stain - Final Foot Left Routine Culture - Preliminary Culture in progress. <Regino Sauceda PA-C - Last Filed: 08/05/24 09:10> Procedures Date of Service Date of Service: 08/05/24 <Regino Sauceda PA-C - Last Filed: 08/05/24 09:10> 08/05/24 <Tu Rajput MD - Last Filed: 08/05/24 09:01> Progress Note: A&P Assessment and plan (1) Chronic ulcer of left foot due to diabetes mellitus: Status: Acute <Regino Sauceda PA-C - Last Filed: 08/05/24 09:10> Assessment and Plan: Both debrided areas clean Dressings changed Continue wound care For dialysis today Pain management Seen and examined with JOVON Sauceda Wounds dressed with wet to dry dressings, wounds are clean <Regino Sauceda PA-C - Last Filed: 08/05/24 09:10> Both debrided areas clean Dressings changed Continue wound care For dialysis today Pain management Seen and examined with JOVON Sauceda <Tu Rajput MD - Last Filed: 08/05/24 09:01> Time Spent With Patient Time: Total time managing care of this patient today ____ minutes. <Regino Sauceda PA-C - Last Filed: 08/05/24 09:10> Quality Stroke Does the patient have a stroke diagnosis?: No <Regino Sauceda PA-C - Last Filed: 08/05/24 09:10> VTE Prior VTE?: No <Regino Sauceda PA-C - Last Filed: 08/05/24 09:10> VTE Risk Level:: Medical - moderate - high <Regino Sauceda PA-C - Last Filed: 08/05/24 09:10> VTE Device Contraindication: N/A - Device Ordered <Regino Sauceda PA-C - Last Filed: 08/05/24 09:10> VTE Drug Contraindication: Treatment Not Indicated <Regino Sauceda PA-C - Last Filed: 08/05/24 09:10>
--- NOTE | 2024-08-05 08:51 | PC.NURSE ---
Addendum entered by Juanita Benjamin RN 08/05/24 10:01: MD Diane entered orderers for POC Blood sugars and Insulin sliding scale. Original Note: [id number] Dr. Diane made aware pt does not have POC blood sugars ordered, or sliding scale insulin despite last MD report. Pt educated on importance of good glycemic control for wound healing, pt states I don't take my blood sugars anymore, they are fine . This RN explained to pt following POC blood sugars would help determine how well blood sugars are controlled, pt is pleasant but continues to refuse blood sugar check despite education attempts.
--- NOTE | 2024-08-05 08:56 | PC.NURSE ---
0806 Pt endorsing nausea, pain, and itching. PRN medications given, Zofran, Benadryl, and dilaudid according to MAR.
--- NOTE | 2024-08-05 09:29 | HO.POSTANES ---
Post Anesthesia Evaluation Post Anesthesia Evaluation Date of Service: 08/05/24 Vital Signs: Vital Signs Temp Pulse Resp BP Pulse Ox O2 Del Method O2 Flow Rate 08/05/24 08:01 97.7 F 83 18 174/77 H 96 Room Air 08/05/24 03:15 96.9 F 83 18 114/56 L 93 Room Air 08/04/24 23:21 96.8 F 82 16 125/60 97 Nasal Cannula 3 Anesthesia: General Mental Status: Awake Pain Control: Satisfactory Nausea/Vomiting: None Hydration: Adequate Anesthesia-Related Issues: No Anes. Related Issues
[2024-08-05 11:59] VITALS: BP 159/76; PULSE 84; RESP 18; O2SAT 95
[2024-08-05 12:01] LABS: Glucose, Whole Blood 96 mg/dL (60-115)
[2024-08-05] MEDS: cefEPime HCl 1 GM in 0.9 % Sodium Chloride 50 ML IV (12:11)
[2024-08-05] MEDS: hydrALAZINE HCl 50 MG TABLET PO ×2 (12:12→20:20)
[2024-08-05 12:18] VITALS: TEMP 36.6
[2024-08-05] MEDS: 0.9 % Sodium Chloride Flush 3 ML SYRINGE IVFLUSH ×2 (13:57→20:24)
[2024-08-05] MEDS: oxyCODONE HCl Immed Release 5 MG TABLET PO ×2 (13:57→20:20)
--- NOTE | 2024-08-05 15:06 | HO.PM.IMPN ---
Subjective Subjective Date of Service: 08/05/24 Interval History: seen in HD foot pain controlled no fever not bacteremic Review of Systems Review of Systems: Yes all other systems are reviewed and are negative Physical Exam Vital Signs: Vital Signs: Last Vital Signs Temp 98 F 08/05/24 12:18 Pulse 84 08/05/24 11:59 Resp 18 08/05/24 11:59 BP 159/76 H 08/05/24 11:59 Pulse Ox 95 08/05/24 11:59 O2 Del Method Room Air 08/05/24 11:59 O2 Flow Rate 3 08/04/24 23:21 Oxygen Flow Rate 2 07/31/24 10:27 BMI result Body Mass Index 33.1 Gen: in no acute distress HEENT: blind, sclera anicteric, moist mucus membranes Neck: supple, HD catheter without erythema or purulence Lungs: clear to auscultation bilaterally Heart: regular rate and rhythm, no murmurs Abd: soft, non-tender, non-distended Ext: s/p bilateral TMAs, bilateral plantar ulcers without purulence Skin: warm/well-perfused Neuro: alert and oriented x3 Psych: appropriate affect Objective Data Active Medications Acetaminophen (Acetaminophen 325 Mg Tablet) 650 mg PO Q6H PRN PRN Reason: Pain, Mild 1-3,fever,headache Last Admin: 07/31/24 23:16 Dose: 650 mg Documented By: ALEJANDRA Albuterol Sulfate (Albuterol Sulfate 90 Mcg 8 Gm Inhaler) 2 puff INHALE Q6H PRN PRN Reason: wheezing Calcium Carbonate (Calcium Carbonate 750 Mg Tab.Chew) 750 mg PO Q4H PRN PRN Reason: Heartburn Carvedilol (Carvedilol 12.5 Mg Tablet) 12.5 mg PO BID [facility]; Protocol Last Admin: 08/05/24 08:38 Dose: Not Given Documented By: NEEMA Non-Admin Reason: pt vomiting Dextrose (Dextrose 50 % 25 Gm/50 Ml Syringe) 25 gm IVPUSH Q15M PRN; Protocol PRN Reason: per Hypoglycemia Standing Ord. Diphenhydramine HCl (Diphenhydramine Hcl 50 Mg/Ml Vial) 25 mg IVPUSH Q6H PRN PRN Reason: Itching Last Admin: 08/05/24 13:57 Dose: 25 mg Documented By: NEEMA Docusate Sodium (Docusate Sodium 100 Mg Capsule) 100 mg PO BID PRN PRN Reason: Constipation Glucose (Glucose Gel 15 Gm Gel..Gram.) 15 gm PO Q15M PRN; Protocol PRN Reason: per Hypoglycemia Standing Ord. Hydralazine HCl (Hydralazine Hcl 50 Mg Tablet) 50 mg PO TID [facility]; Protocol Last Admin: 08/05/24 12:12 Dose: 50 mg Documented By: NEEMA Comments: am dose not given pt in HD Hydromorphone HCl (Hydromorphone Hcl 0.5 Mg/0.5 Ml Syringe) 0.5 mg IVPUSH Q4H PRN; Protocol PRN Reason: Pain, Severe (Pain Scale 7-10) Last Admin: 08/05/24 12:12 Dose: 0.5 mg Documented By: NEEMA Daptomycin 600 mg/ Sodium (Chloride) 62 mls @ 100 mls/hr IV SA@1800 VASILE Last Infusion: 08/02/24 17:52 Dose: Infused Documented By: SHAHLA Daptomycin 400 mg/ Sodium (Chloride) 58 mls @ 100 mls/hr IV TUTH@1800 VASILE Cefepime HCl 1 gm/ Sodium (Chloride) 50 mls @ 100 mls/hr IV Q24H [facility] Last Infusion: 08/05/24 12:53 Dose: Infused Documented By: NEEMA Insulin Human Lispro (Insulin Lispro 100 Unit/Ml 3 Ml Vial) 0 unit SUBCUT QIDACHS [facility]; Protocol Last Admin: 08/05/24 12:36 Dose: Not Given Documented By: NEEMA Non-Admin Reason: No Insulin Coverage Lidocaine (Lidocaine 4 % Patch Adh..Patch) 1 patch TRANSDERMA DAILY PRN PRN Reason: Pain Magnesium Hydroxide (Milk Of Magnesia 30 Ml Oral.Susp) 30 ml PO DAILY PRN PRN Reason: Constipation Melatonin (Melatonin 3 Mg Tablet) 6 mg PO BEDTIME PRN PRN Reason: Insomnia Ondansetron HCl (Ondansetron Hcl 4 Mg/2 Ml Vial) 4 mg IVPUSH Q8H PRN PRN Reason: Nausea and Vomiting Last Admin: 08/05/24 08:06 Dose: 4 mg Documented By: NEEMA Ondansetron HCl (Ondansetron Odt 4 Mg Tab.Rapdis) 4 mg TRANSLINGU Q8H PRN PRN Reason: nausea and vomiting Last Admin: 08/03/24 08:50 Dose: 4 mg Documented By: BJ Oxycodone HCl (Oxycodone Hcl Immed Release 5 Mg Tablet) 5 mg PO Q4H PRN PRN Reason: Pain, Moderate(Pain Scale 4-6) Last Admin: 08/05/24 13:57 Dose: 5 mg Documented By: NEEMA Polyethylene Glycol (Polyethylene Glycol 3350 17 Gm Powd.Pack) 17 gm PO BID PRN PRN Reason: Constipation Sodium Chloride (0.9 % Sodium Chloride Flush 3 Ml Syringe) 3 ml IVFLUSH QSHIFT VASILE Last Admin: 08/05/24 13:57 Dose: 3 ml Documented By: NEEMA Labs 08/03/24 08:53 08/03/24 08:53 Labs: Laboratory Results - last 24 hr 08/04/24 08/05/24 16:46 11:57 POC Glucose 113 96 Microbiology Microbiology Results: Microbiology 07/31/24 10:57 Blood Culture - Final Blood - Venous No growth after 5 days. 07/31/24 10:42 Blood Culture - Final Blood - Venous No growth after 5 days. 08/04/24 18:23 Gram Stain - Final Foot Left Routine Culture - Preliminary Culture in progress. 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 Pt is admitted to the hospital for treatment and further evaluation of acute metabolic encephalopathy in the setting of likely catheter line infection with sepsis. Acute metabolic encephalopathy in the setting fever and concern of recurrent bacteremia, line sepsis encephalopathy resolved d6 for 34yo F with ESRD on HD TuThSa, DM2 with polyneuropathy/retinopathy with legal blindness, PAD s/p bilateral TMA, HTN, medication noncompliance, chronic HFrEF, chronic hypoxia on 3-4L O2, multiple dialysis line infections with MSSA, Pseudomonas, and Stenotrophomonas, mood disorder, and chronic pain with opioid-seeking behavior presenting with N/V, fever and confusion, admitted for acute encephalopathy with sepsis suspicious for line infection but ultimately blood cultures negative sepsis due to infected diabetic foot ulcer on TMA stumps - General surgery consulted, s/p sharp excisional debridement superficial eschar dorsal aspect of the right foot and thick callus on the plantar aspect of the left foot 08/04, countine wet->dry dressings - cefepime + daptomycin 08/01-, ID consulted, likely change to PO ABX as not bacteremic, awaiting final wound culture - fever resolved acute encephalopathy due to infection - resolved ESRD - HD TuThSa troponin indeterminate - chronic, no ACS suspected DM2 - correction-dose lispro, DM diet chronic hypoxic resp failure - 3-4 L O2 at home chronic HFrEF HTN - carvedilol + hydralazine; volume management by HD chronic pain - continue home oxycodone; avoid IV Dilaudid VTE ppx - UFH dispo - eventual home with VNA In my clinical judgment, the patient requires continued inpatient hospitalization for the following reasons: IV ABX, wound care Total time managing care of this patient today: 45 minutes. Quality Stroke Does the patient have a stroke diagnosis?: No VTE Prior VTE?: No VTE Risk Level:: Medical - moderate - high VTE Device Contraindication: N/A - Device Ordered VTE Drug Contraindication: Treatment Not Indicated
[2024-08-05 16:01] VITALS: BP 123/56; PULSE 85; RESP 18; TEMP 36.1; O2SAT 95
[2024-08-05 16:30] LABS: Glucose, Whole Blood 117 mg/dL (60-115)
[2024-08-05] MEDS: DAPTOmycin 400 MG in 0.9 % Sodium Chloride 50 ML 100 MG IV (17:19)
[2024-08-05 20:00] VITALS: BP 186/84; PULSE 89; RESP 18; TEMP 36.6; O2SAT 97
[2024-08-05] MEDS: carvediloL 12.5 MG TABLET PO (20:20)
--- NOTE | 2024-08-06 04:07 | PC.NURSE ---
pt c/o pain and asked for dilaudid but this medication was already discontinued during the day and was not renewed because pt is to be discharge home . x2 notified MD as pt requested.
[2024-08-06 07:18] VITALS: BP 159/81; PULSE 85; RESP 12; TEMP 36.8; O2SAT 95
[2024-08-06] MEDS: carvediloL 12.5 MG TABLET PO (07:59)
[2024-08-06] MEDS: oxyCODONE HCl Immed Release 5 MG TABLET PO (08:00)
[2024-08-06] MEDS: hydrALAZINE HCl 50 MG TABLET PO (08:00)
[2024-08-06] MEDS: 0.9 % Sodium Chloride Flush 3 ML SYRINGE IVFLUSH (08:00)
[2024-08-06] MEDS: diphenhydrAMINE HCL 50 MG/ML VIAL 25 MG IVPUSH (10:38)
[2024-08-06] MEDS: HYDROmorphone HCl 0.5 MG/0.5 ML SYRINGE IVPUSH (10:38)
--- NOTE | 2024-08-06 10:52 | MHC.CM.PN ---
Per MD rounds, patient medically cleared for dc home w/ new [facility] for SN. Patient requesting BLS transport. Scheduled for 12pm. [facility] auth obtained. IMM delivered. RN aware.
[2024-08-06 11:51] VITALS: BP 122/76; PULSE 76; RESP 14; TEMP 36.3; O2SAT 96
[2024-08-06] MEDS: HYDROmorphone HCl 1 MG/ML SYRINGE 0.75 MG IVPUSH (12:25)
--- NOTE | 2024-08-06 13:14 | P.PNNP_ITS ---
Subjective Subjective Date of Service: 08/06/24 Interval history: Seen and examied, events nteid Physical Exam 2 Vital Signs: Vital Signs: Last Vital Signs Temp 97.3 F 08/06/24 11:51 Pulse 76 08/06/24 11:51 Resp 14 08/06/24 11:51 BP 122/76 08/06/24 11:51 Pulse Ox 96 08/06/24 11:51 O2 Del Method Room Air 08/06/24 11:51 O2 Flow Rate 3 08/04/24 23:21 Oxygen Flow Rate 2 07/31/24 10:27 BMI result Body Mass Index 33.1 Const: Other: General: AOx3, no acute distress. Pt blind. Resp: CTA bilaterally CVS: S1, S2, RRR GI: +BS, no distention, right-sided tenderness without guarding or rebound tenderness Skin: Warm, dry. HD catheter without purulence. Neuro: Cranial nerves II-XII grossly intact bilaterally. Motor grossly intact bilaterally Extremities: No edema. Bilateral TMA. Chronic bilateral foot ulcers without obvious signs of infection. See ED visit chart for pictures. Psych: Appropriate affect General: cooperative and no acute distress Nutritional Appearance: well nourished Orientation/consciousness: patient oriented x3 HEENT: Head: Yes normal to inspection Face and sinus: Yes normal facial exam Mouth: Normal oral and palatal mucosa present Teeth and gingiva: d entition normal Eyes: Other: Legal blindness Pupils: Equal, round and reactive pupils present Chest: Other: right dialysis cath site chest clear Resp: Effort & Inspection: normal respiratory effort Cardio: Rate: regular rate Rhythm: regular rhythm GI: Inspection: Yes normal to inspection Palpation (GI): Soft to palpation and nontender : General: Yes no CVA tenderness Back/Spine/Pelvis: Back: no CVA tenderness Skin: General skin exam: no rashes or lesions noted Neuro: General: patient oriented x3 and moves all extremities Cranial nerves: Yes Equal, round and reactive pupils present Extrem: Other: Left foot with a callus wound on the plantar surface midfoot measuring approximately 3 cm in diameter. Light pressure on the callus elicits tenderness and a small amount of purulence discharge. The previous Achilles ulceration is all healed. Right foot with a dry callus of the anterior surface with no drainage noted. A 2nd lesion further up near the ankle is noted also to be healing. Psych: Appearance: grossly normal Objective Data Labs 08/03/24 08:53 08/03/24 08:53 Labs: Laboratory Results - last 24 hr 08/05/24 16:21 POC Glucose 117 H Microbiology Microbiology Results: Microbiology 08/04/24 18:23 Foot Left Gram Stain - Final 08/04/24 18:23 Foot Left Routine Culture - Preliminary Culture in progress. 07/31/24 10:57 Blood - Venous Blood Culture - Final No growth after 5 days. 07/31/24 10:42 Blood - Venous Blood Culture - Final No growth after 5 days. 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 Pt is admitted to the hospital for treatment and further evaluation of acute metabolic encephalopathy and question of recurrent HD catheter line infection with sepsis. Thus far bldd cult neg ID seeing PT and rec line not be taken out if Bld cult remain neg left foot with some purulent discharge ? possible source of infection For debridment in the OR today by Dr. Collado ESRD on HD //Sun--next HD schedueld 08/07 HTN controlled Continue carvedilol, hydralazine Chronic hypoxemic respiratory failure Not in acute exacerbation Pt on 3-4 L NC at home Anemia: mutlofact including epo def state REC: HD 08/07 and cont TTS; ABx per ID Will follow w team Time Spent With Patient Time: Total time managing care of this patient today ____ minutes. Progress Note: Quality Stroke Does the patient have a stroke diagnosis?: No
--- NOTE | 2024-08-06 14:54 | W.MHC.F2F ---
Service Date Service Date: 08/06/24 Encounter Date of encounter: 08/06/24 Reasons for Services Signs and symptoms assessed: wound care Reason for snf: wound care Reason for physical therapy: home safety and mobility, therapeutic exercises, gait/transfer training, assess need for DME, ADL training and energy conservation MD Overseeing Care: Genevieve Casillas Homebound: Leaving the home is medically contraindicated at this time without the asist of a device and/or another person due th the listed conditions above and below. Reason homebound: weakness related to hospital stay and legally blind Certification: Based on the above findings, I certify that this patient is confined to the home and needs intermittent snf care, physical therapy and/or speech therapy, or continues to need occupational therapy. The patient is under my care, and I have initiated the establishment of the plan of care. The patient will be followed by a physician who will periodically review the plan of care. Time Spent With Patient Time: Total time managing care of this patient today ____ minutes.
--- NOTE | 2024-08-06 14:55 | P.DS_ITS ---
DS: Providers Provider Date of Service: 08/06/24 Date of admission: 07/31/24 12:15 Date of discharge: 08/06/24 Primary care physician: Genevieve Casillas MD Consults: 07/31/24 10:54 Consult to Infectious Diseases Routine Consulting Provider: [facility] Reason for consultation: fever, concern for bacteremia, hx line infection Has provider been notified: Yes 07/31/24 11:44 Consult to Nephrology Stat Consulting Provider: [facility] Reason for consultation: ESRD, concern for line infection Has provider been notified: Yes 07/31/24 12:42 Consult to Infectious Diseases Routine Consulting Provider: [facility] Reason for consultation: Likely line infection, hx of MSSA Consult to Nephrology Routine Consulting Provider: [facility] Reason for consultation: ESRD on HD //Sun08/03/24 09:44 Consult to General Surgery Routine Consulting Provider: [facility] Reason for consultation: wound of foot, leg ? 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 Pt initially confused upon presentation to the ED, thinking that she was still at home in her living room. However, pt currently more alert and oriented. Reports has been having shaking chills with nausea, vomiting, and right-sided abdominal pain since last night. SOB at baseline. Denies chest pain/pressure, palpitations. Reports has been compliant with home medication and last went to dialysis on Sunday. In the ED pt was fever of 101.9, tachycardia of 111, tachypnea of 28, hypertension of 166/73, and satting at 91% on 2 L NC. Labs were significant for H&H 8.0/24.6, BUN 73, creatinine 9.56, lactic acid 2.6, T bili 1.3, alk-phos 225, initial troponin 72.6 (similar to previous), CRP 3.01, and BNP 3098 (in line with previous). Tested negative for flu, RSV, and COVID. CXR showed no active pulmonary disease, but showed cardiomegaly and right IJ central venous catheter in stable position. EKG demonstrated sinus tachycardia with RBBB and possible left atrial enlargement, similar to prior. Pt was treated in the ED with acetaminophen, diphenhydramine, 500 mL IVF, Dilaudid, cefepime, and daptomycin. ED clinician reached out to ID treated with IV antibiotics and removing patient's line today. Also reached out to Nephrology who would like to perform a 2 hour HD session prior to line being pulled. Pt is admitted to the hospital for treatment and further evaluation of acute metabolic encephalopathy in the setting of likely catheter line infection with sepsis. 34yo F with ESRD on HD [facility], DM2 with polyneuropathy/retinopathy with legal blindness, PAD s/p bilateral TMA, HTN, medication noncompliance, chronic HFrEF, chronic hypoxia on 3-4L O2, multiple dialysis line infections with MSSA, Pseudomonas, and Stenotrophomonas, mood disorder, and chronic pain with opioid- seeking behavior presenting with N/V, fever and confusion, admitted for acute encephalopathy with sepsis suspicious for line infection but ultimately blood cultures negative. She was felt to have infection of diabetic foot ulcers on both of her TMA stumps. General Surgery was consulted and performed sharp excisional debridement superficial eschar dorsal aspect of the right foot and of thick callus on the plantar aspect of the left foot 08/04. Postoperatively, she was placed on daily wet->dry dressing changes. She had been treated with cefepime and daptomycin 08/01-08/06 but as she was not bacteremic, she was discharged on doxycycline and amoxicillin-clavulanate as per Infectious Disease consultation. VNA services were arranged to assist with wound care. Encephalopathy resolved with treatment of the infection. She underwent her usual dialysis [facility]. Time Attestation Discharge Coordination Time (in mins): 45 Quality: Safe Use of Opioids Does Pt have an Active Cancer Diagnosis on the Problem List?: No Quality: Stroke Does the patient have a stroke diagnosis?: No Physical Exam Vital Signs: Vital Signs: Last Vital Signs Temp 97.3 F 08/06/24 11:51 Pulse 76 08/06/24 11:51 Resp 14 08/06/24 11:51 BP 122/76 08/06/24 11:51 Pulse Ox 96 08/06/24 11:51 O2 Del Method Room Air 08/06/24 11:51 O2 Flow Rate 3 08/04/24 23:21 Oxygen Flow Rate 2 07/31/24 10:27 BMI result Body Mass Index 33.1 Gen: in no acute distress HEENT: blind, sclera anicteric, moist mucus membranes Neck: supple, HD catheter without erythema or purulence Lungs: clear to auscultation bilaterally Heart: regular rate and rhythm, no murmurs Abd: soft, non-tender, non-distended Ext: s/p bilateral TMAs, bilateral plantar ulcers without purulence Skin: warm/well-perfused Neuro: alert and oriented x3 Psych: appropriate affect DS: Data Data Completed and Pending Completed studies during hospitalization [Text1]: Laboratory Results WBC 4.0 X10*3/uL (4.8-10.8) L 08/03/24 08:53 RBC 2.95 X10*6/uL (4.20-5.50) L 08/03/24 08:53 Hgb 9.0 g/dl (12.0-16.0) L 08/03/24 08:53 Hct 28.2 % (37.0-47.0) L 08/03/24 08:53 MCV 95.6 fL (80.0-98.0) 08/03/24 08:53 MCH 30.5 pg (27.0-33.0) 08/03/24 08:53 MCHC 31.9 g/dl (31.0-35.0) 08/03/24 08:53 RDW 17.9 % (11.0-16.0) H 08/03/24 08:53 Plt Count 127 X10*3/uL (160-400) L 08/03/24 08:53 MPV 11.4 fL (9.4-12.3) 08/03/24 08:53 Immature Gran % (Auto) 0.5 % (0.0-0.4) H 07/31/24 10:42 Neut % (Auto) 81.4 % (45-73) H 07/31/24 10:42 Lymph % (Auto) 6.9 % (20-40) L 07/31/24 10:42 Citrus % (Auto) 8.9 % (2-11) 07/31/24 10:42 Eos % (Auto) 1.9 % (0-4) 07/31/24 10:42 Baso % (Auto) 0.4 % (0-2) 07/31/24 10:42 Lymph # (Auto) 0.6 X10*3/uL (1.2-4.9) L 07/31/24 10:42 Citrus # (Auto) 0.7 X10*3/uL (0.1-1.2) 07/31/24 10:42 Eos # (Auto) 0.2 X10*3/uL (0.0-0.4) 07/31/24 10:42 Baso # (Auto) 0.0 X10*3/uL (0.0-0.2) 07/31/24 10:42 Abs Immat Gran (auto) 0.04 X10*3/uL (0.00-0.03) H 07/31/24 10:42 Absolute Neuts (auto) 6.8 x10*3/uL (2.0-8.3) 07/31/24 10:42 Absolute Nucleated RBC 0.000 X10*3/uL (0.0-0.012) 08/03/24 08:53 Nucleated RBC % (auto) 0.0 /100WBC (0.0-0.2) 08/03/24 08:53 VBG pH 7.40 (7.32-7.43) 07/31/24 10:50 VBG pCO2 37 mmHg 07/31/24 10:50 VBG pO2 53 mmHg 07/31/24 10:50 VBG HCO3 23 mmol/L (22-26) 07/31/24 10:50 VBG O2 Saturation 75.0 % 07/31/24 10:50 VBG Base Excess -0.4 mmol/L 07/31/24 10:50 Sodium 136 mmol/L (135-145) 08/03/24 08:53 Potassium 4.3 mmol/L (3.3-5.1) D 08/03/24 08:53 Chloride 95 mmol/L (96-108) L 08/03/24 08:53 Carbon Dioxide 30 mmol/L (22-29) H 08/03/24 08:53 Anion Gap 15 (12-20) 08/03/24 08:53 BUN 41 mg/dL (9-16) H 08/03/24 08:53 Creatinine 6.91 mg/dL (0.5-1.4) H* 08/03/24 08:53 Estim Creat Clear Calc 11.1 08/03/24 08:53 Estimated GFR 7 08/03/24 08:53 POC Glucose 117 mg/dL (60-115) H 08/05/24 16:21 Random Glucose 150 mg/dL (60-115) H 08/03/24 08:53 Lactic Acid 2.6 mmol/L (0.5-2.0) H* 07/31/24 10:42 Lactic Acid F/U @ 2Hr 0.6 mmol/L (0.5-2.0) 07/31/24 13:25 Calcium 8.6 mg/dL (8.4-10.2) 08/03/24 08:53 Magnesium 2.1 mg/dL (1.6-2.6) 07/31/24 10:42 Total Bilirubin 1.3 mg/dL (0.0-1.0) H 07/31/24 10:42 Direct Bilirubin 0.6 mg/dL (0.0-0.5) H 07/31/24 10:42 AST 25 U/L (5-31) 07/31/24 10:42 ALT 13 U/L (0-31) 07/31/24 10:42 Alkaline Phosphatase 225 U/L (39-117) H 07/31/24 10:42 Troponin I High Sens 72.6 ng/L (<3.5-17.0) H* 07/31/24 10:42 C-Reactive Protein 3.01 mg/dL (< or = 0.50) H 07/31/24 10:42 B-Natriuretic Peptide 3098 pg/mL (<100) H 07/31/24 10:42 Total Protein 7.9 g/dL (6.5-8.0) 07/31/24 10:42 Albumin 3.9 g/dL (3.5-5.0) 07/31/24 10:42 Ethyl Alcohol < 10 mg/dL 07/31/24 10:42 Hep Bs Antigen Cancelled 08/06/24 12:29 Hep Bs Antibody Cancelled 08/06/24 12:29 Hep B Core Total Ab Cancelled 08/06/24 12:29 Hepatitis C Ab (EIA) Cancelled 08/06/24 12:29 Influenza Type A (PCR) NEGATIVE (Negative) 07/31/24 10:42 Influenza Type B (PCR) NEGATIVE (Negative) 07/31/24 10:42 RSV RNA Qual (PCR) NEGATIVE (Negative) 07/31/24 10:42 SARS-CoV-2 RNA (RT-PCR) NEGATIVE (Negative) 07/31/24 10:42 Impressions Chest X-Ray 07/31/24 10:34 IMPRESSION: 1. Right IJ central venous catheter in stable position. 2. Cardiomegaly. 3. No active pulmonary disease. Electronically signed by: Damon Alanis MD 07/31/2024 11:56 AM EDT Labs on day of discharge: Laboratory Results - last 24 hr 08/05/24 08/06/24 16:21 12:29 POC Glucose 117 H Hep Bs Antigen Cancelled Hep Bs Antibody Cancelled Hep B Core Total Ab Cancelled Hepatitis C Ab (EIA) Cancelled Preliminary micro results at discharge 08/04/24 18:23 Routine Culture - Preliminary Foot Left Culture in progress. Discharge Plan Discharge Anticipated Discharge Date/Time: 08/06/24 11:47 Patient Disposition: Home Health Service Discharge Diagnosis: sepsis due to infected diabetic foot ulcers Referrals: [facility]Provider Group] - 1 Week [place]Outside[facility] [Physician] - 1 Week Discharge Medications: New doxycycline monohydrate 100 mg tablet 100 mg PO BID Qty: 14 0RF amoxicillin-pot clavulanate 500-125 mg tablet 1 tab PO BID Qty: 14 0RF Continued carvedilol 12.5 mg Tablet 12.5 mg PO BID 90 Days Qty: 180 0RF Protocol: Hold for SBP/HR < HOLD for SBP < : 90 HOLD for HR < : 60 hydralazine 50 mg Tablet 50 mg PO TID 90 Days Qty: 270 0RF Protocol: Hold for SBP< HOLD for SBP < : 90 acetaminophen 325 mg tablet 650 mg PO Q4H PRN (Reason: mild pain) lidocaine 5 % adhesive patch,medicated 1 patch topical DAILY PRN (Reason: Pain) nitroglycerin 0.4 mg tablet, sublingual 0.4 mg sublingual DIRECTED PRN (Reason: Angina) albuterol sulfate [Ventolin HFA] 90 mcg/actuation HFA aerosol inhaler 2 puff inhalation Q6H PRN (Reason: wheezing) calcium carbonate [Tums] 200 mg calcium (500 mg) Tablet,Chewable 200 mg PO TIDWM ondansetron 4 mg tablet,disintegrating 4 mg PO Q8H PRN (Reason: nausea and vomiting) Qty: 12 0RF docusate sodium [Colace] 100 mg capsule 100 mg PO BID PRN (Reason: Constipation) polyethylene glycol 3350 [Miralax] 17 gram/dose powder 17 g PO BID PRN (Reason: Constipation) oxycodone 5 mg tablet 5 mg PO Q8H PRN (Reason: Pain) Qty: 12 0RF Discharge Orders: Discharge Order (Routine); Ordered 08/06/24 Ordered By: Paul Diane Diet: Diabetic diet Activity on Discharge: As tolerated Stand Alone Forms: Patient Portal Discharge page Print Language: Mohawk Care Plan Goals: heal infected ulcers Health Concerns: sepsis due to infected diabetic foot ulcers Plan of Treatment: take doxycycline monohydrate 100 mg twice daily PLUS amoxicillin-clavulanate 500-125 mg twice daily for 7 days wet to dry dressings, change daily follow up with [facility] [place] Please follow up with your primary care doctor within 1 week. Return to the hospital if you experience recurrent or worsening symptoms. Assessment: See Discharge Summary. Discharge Date/Time: 08/06/24 13:15
[2024-08-06 17:03] LABS: HIV AB/AG Nonreactive (Nonreactive); HIV Num 1 0.06 S/CO (0.00-0.99)
[2024-08-07 08:18] LABS: HBS Num1 2.17 mIU/mL (0-7.99); HBc Num1 0.29 S/CO (0.00-0.79); HBsAGNum1 0.41 S/CO (0.00-0.99); Hepatitis B Core Antibody Nonreactive (Nonreactive); Hepatitis B Surface Antigen Negative (Negative); Hepatitis C Ab Exposure Source NonReactive (Nonreactive); ~HepC Num1 0.21 S/CO (0.00-0.79); ~Hepatitis B Surface Antibody NONREACTIVE (Nonreactive)
== END 2024-08-06 13:15 | disposition home health service (06) | DRG 264 ==
LOC: HO.ED 12:18 → HO.EDOVER 12:23 → HO.IMC 12:28 → HO.S3 08-04 09:20
PROVIDERS: Internal Medicine; Physician Assistant; Surgery; Admitting Provider Student in an Organized Health Care Education/Training Program; Emergency Provider Emergency Medicine; PCP Student in an Organized Health Care Education/Training Program; Visit Provider Family Medicine
PROC: 0JBR0ZZ Excision of Left Foot Subcutaneous Tissue and Fascia, Open Approach (ICD-10-PCS; principal; 2024-08-04 17:10)
DX: T80.211A Bloodstream infection due to central venous catheter, initial encounter (principal); A41.9 Sepsis, unspecified organism; G93.41 Metabolic encephalopathy; N18.6 End stage renal disease; I13.2 Hypertensive heart and chronic kidney disease with heart failure and with stage 5 chronic kidney disease, or end stage renal disease; I50.22 Chronic systolic (congestive) heart failure; J96.11 Chronic respiratory failure with hypoxia; E11.52 Type 2 diabetes mellitus with diabetic peripheral angiopathy with gangrene; E11.42 Type 2 diabetes mellitus with diabetic polyneuropathy; H54.8 Legal blindness, as defined in USA; E11.319 Type 2 diabetes mellitus with unspecified diabetic retinopathy without macular edema; E11.22 Type 2 diabetes mellitus with diabetic chronic kidney disease; G89.29 Other chronic pain; Z99.2 Dependence on renal dialysis; Z20.822 Contact with and (suspected) exposure to COVID-19; Z99.81 Dependence on supplemental oxygen; Z76.5 Malingerer [conscious simulation]; Z91.148 Patient's other noncompliance with medication regimen for other reason; Z91.158 Patient's noncompliance with renal dialysis for other reason; Z79.899 Other long term (current) drug therapy
CPT/HCPCS: 0241U; 36415; 71045; 80048; 80076; 80307; 82803; 82947; 83605; 83735; 83880; 84484; 85025; 85027; 86140; 86704; 86706; 86803; 87040; 87070; 87077; 87186; 87205; 87340; 87389; 88304; 90999; 93005; 99285; J0131; J0692; J0878; J1171; J1200; J2003; J2405; J2704; J3010; J7120

== ENCOUNTER → 2024-07-31 10:27 | Outpatient (BNV) | payer OTHER, SELFPAY | PROVIDERS: Emergency Provider Emergency Medicine; Visit Provider Radiology Diagnostic Radiology | DX: I51.7 Cardiomegaly (principal); Z95.9 Presence of cardiac and vascular implant and graft, unspecified | CPT/HCPCS: 71045 ==

== ENCOUNTER → 2024-07-31 10:27 | Outpatient (BNV) | payer OTHER, SELFPAY | PROVIDERS: Admitting Provider Student in an Organized Health Care Education/Training Program; Emergency Provider Emergency Medicine; Visit Provider Internal Medicine | DX: I45.10 Unspecified right bundle-branch block (principal); R00.0 Tachycardia, unspecified | CPT/HCPCS: 93010 ==

== ENCOUNTER → 2024-07-31 12:15 | Outpatient (BNV) | payer OTHER, SELFPAY | PROVIDERS: Admitting Provider Student in an Organized Health Care Education/Training Program; Emergency Provider Emergency Medicine; Visit Provider Student in an Organized Health Care Education/Training Program | DX: A41.9 Sepsis, unspecified organism (principal) | CPT/HCPCS: 99223; 99232; 99233 ==

== ENCOUNTER → 2024-07-31 12:15 | Outpatient (BNV) | payer OTHER, SELFPAY | PROVIDERS: Admitting Provider Student in an Organized Health Care Education/Training Program; Emergency Provider Emergency Medicine; Visit Provider Surgery | DX: E11.621 Type 2 diabetes mellitus with foot ulcer (principal); L97.519 Non-pressure chronic ulcer of other part of right foot with unspecified severity; L97.529 Non-pressure chronic ulcer of other part of left foot with unspecified severity | CPT/HCPCS: 99222; 99499 ==

== ENCOUNTER → 2024-07-31 12:15 | Outpatient (BNV) | payer OTHER, SELFPAY | PROVIDERS: Admitting Provider Student in an Organized Health Care Education/Training Program; Emergency Provider Emergency Medicine; Visit Provider Internal Medicine | DX: N18.6 End stage renal disease (principal); J96.01 Acute respiratory failure with hypoxia; G93.41 Metabolic encephalopathy | CPT/HCPCS: 99232 ==

== ENCOUNTER 2024-08-18 12:53 | Inpatient (IN) | payer OTHER, SELFPAY ==
[2024-08-18] VITALS (9 sets, daily range): BP systolic 167–208; BP diastolic 97–117; PULSE 68–92; RESP 17–18; TEMP 36.5; O2SAT 94–99; BMI 32.2
--- NOTE | ~2024-08-18 | MR_ITS ---
EXAMINATION: MR BRAIN WITHOUT CONTRAST CLINICAL INFORMATION: Slurred speech. 34-year-old female. COMPARISON: No prior MRI. Numerous prior head CTs, most recently 08/18/2024. TECHNIQUE: MRI of the brain was obtained using routine sequences without contrast. Examination performed on a 1.5 Tena Siemens high-field unit. FINDINGS: There is no diffusion restriction. There is no intracranial hemorrhage, acute infarction, mass effect, or edema. Ventricles, sulci, and cisterns are normal in size and configuration for patient age. No shift of midline. No abnormal hemosiderin deposition is identified. There are numerous scattered punctate and minimally confluent foci of white matter T2 hyperintensity in the periventricular, subcortical, and hemispheric deep white matter. There are both pericallosal and callosal marginal lesions. Many of these have a perpendicular orientation with the lateral ventricles. There is diffuse hyperintensity at the callosal septal interface. There is an oval T2 hyperintense signal abnormality in the left anterior thalamus measuring 0.9 x 0.7 x 1.0 cm (AP, TRV, CC). There is T2 hyperintensity in the central camilla, right inferior camilla, and right superior medulla. There is either an old lacunar type infarct or a T1 hypointense chronic demyelinating plaque in the right cerebellar hemisphere measuring approximately 1.5 x 0.8 cm. Midline structures appear normally formed. The pituitary gland appears normal. Posterior fossa structures appear normal. Cerebellar tonsils are appropriately located. Major flow voids are preserved within the skull base. There is abnormal T2 signal in both optic nerves. The right globe is shrunken and abnormal in signal. There is a probable left retinal detachment present. Mild mucosal thickening in the dependent right maxillary sinus. Paranasal sinuses are otherwise clear bilaterally. There is a right mastoid tip effusion. The mastoids and tympanic cavities are otherwise normally aerated. Extracranial soft tissues demonstrate no abnormalities. No suspicious bone marrow changes are evident. Atlantoaxial joint is normal. MR/MR head/brain wo con IMPRESSION: 1. No evidence of intracranial hemorrhage, acute infarction, mass effect, or edema. 2. Findings highly suspicious for inflammatory demyelinating disease (multiple sclerosis), with a likely active demyelinating plaque in the left anterior thalamus measuring 0.9 x 0.7 x 1.0 cm. There is involvement of the central camilla, right cerebellum, and right superior medulla. Refer to the body of the report for details. 3. Abnormal signal in both optic nerves. 4. There appears to be a retinal detachment on the left. The right globe is shrunken and abnormal in signal. Electronically signed by: Damon Alanis MD 08/20/2024 01:31 PM EDT
--- NOTE | ~2024-08-18 | MR_ITS ---
CLINICAL HISTORY: eval for active MS lesions MR Brain with gadolinium Comparison: MR/REG/NC/SR - MR HEAD/BRAIN WO CON - 08/20/24 12:37 EDT Findings: There is mild enhancement within the left thalamic lesion, measuring 7 mm transverse. Intracranial enhancement is otherwise within normal limits. IMPRESSION: Mild enhancement within the left thalamic focus, suggestive of active multiple sclerosis. This document has been electronically signed by: Juan Mckeon MD on 08/21/2024 18:42:53
--- NOTE | ~2024-08-18 | CT_ITS ---
EXAMINATION: CT HEAD WITHOUT CONTRAST (STROKE PROTOCOL) CLINICAL INFORMATION: Right-sided weakness. Concerning acute stroke. COMPARISON: July 12, 2024. TECHNIQUE: Contiguous axial imaging was performed from the skull base to vertex without intravenous administration of contrast. This CT examination was performed using dose optimization techniques as appropriate, variously including the following: *Automated exposure control *Adjustment of mA and/or kV according to patient size (this includes techniques or standardized protocols for targeted exams where dose is matched to indication/reason for exam; i.e. extremities or head) *Use of iterative reconstruction technique FINDINGS: No acute intracranial hemorrhage. Bilateral multifocal patchy and confluent deep periventricular white matter hypodensities involving centrum semiovale and espinal radiata. Old vascular insult right cerebellum likely right PICA territory. Ventura-white matter differentiation is normal. Calcified plaques in the cavernous supracavernous segments both ICAs and V4 segments of the vertebral arteries. Arterial calcifications in the extracranial compartment. No gross mass effect midline shift, hydrocephalus or herniation. Old partially calcified deformity of the right eyeball. No acute fracture in the bony calvarium or the skull base. Incomplete fusion posterior arch of C1. Mucosal thickening, right maxillary sinus. Tympanic cavities and mastoid cells are aerated. CT/CT head for STROKE IMPRESSION: No acute intracranial hemorrhage or acute brain abnormality by CT. Small vessel occlusive disease. Prior vascular insult right PICA territory. Atherosclerosis disease. Phthisis bulbi, right eyeball. This critical result was discussed with Dr. Jessica Reed at 1:15 PM hours on August 18, 2024.. It was ascertained that the content and urgency of the report was understood at the time of direct communication. Electronically signed by: Shadi Lopez MD 08/18/2024 01:19 PM EDT
--- NOTE | ~2024-08-18 | XR_ITS ---
EXAMINATION: XR CHEST CLINICAL INFORMATION: stroke COMPARISON: July 31, 2024. TECHNIQUE: Frontal view of the chest was obtained. FINDINGS: Heart silhouette is enlarged. Poor inspiration. No gross consolidation pleural effusion or pneumothorax. Right-sided central venous line catheter ends in the right atrium, unchanged. Osseous structures are intact. XR/XR chest 1V IMPRESSION: Cardiomegaly versus pericardial effusion. No acute airspace disease. Electronically signed by: Shadi Lopez MD 08/18/2024 01:34 PM EDT
--- NOTE | ~2024-08-18 | CT_ITS ---
EXAMINATION: CTA NECK WITH CONTRAST (STROKE) CTA BRAIN WITH CONTRAST (STROKE) CLINICAL INFORMATION: Right-sided weakness. Concerning for acute stroke. COMPARISON: Correlated to carotid artery, extracranial color Doppler ultrasound dated March 31, 2022. TECHNIQUE: CTA of the head and neck was performed in the axial plane from the mediastinum to the skull vertex using 70 mL Omnipaque 350 intravenous contrast. Additional reformatted multiplanar images including maximum intensity projection MIP images are generated on the CT workstation. This CT examination was performed using dose optimization techniques as appropriate, variously including the following: *Automated exposure control *Adjustment of mA and/or kV according to patient size (this includes techniques or standardized protocols for targeted exams where dose is matched to indication/reason for exam; i.e. extremities or head) *Use of iterative reconstruction technique DLP: 742 mGy centimeter. FINDINGS: The degree of stenosis determined by criteria similar to NASCET. Brain: No acute intracranial hemorrhage, mass effect, midline shift, hydrocephalus or herniation. Vascular insult right cerebellum/right superior cerebellar artery territory Chest CTA: Calcified plaques. No aneurysm or dissection. No focal stenosis. Neck CTA: Right CCA: Normal patency. No focal stenosis. No intimal flap. Calcified plaque in the mid to distal segment. Right ICA: Calcified plaque. Normal patency. No focal stenosis. No intimal flap. Left CCA: Normal patency. No focal stenosis. No intimal flap. Left ICA: Calcified plaques in the proximal segment. Normal patency. No focal stenosis. No intimal flap. V1/V2 segments: Normal patency. No focal stenosis. No intimal flap. Left vertebral artery slightly dominant. Brain CTA: Anterior cerebral circulation: ICAs: Calcified plaques in the cavernous segments. No focal stenosis. No abrupt cutoff. MCA's: Normal patency. No focal stenosis. No abrupt cut off. Bifurcation/trifurcation demonstrated no vascular irregularity. ACAs: Normal patency. No focal stenosis. No abrupt cut off. Hypoplastic right A1 segment. Anterior communicating artery is patent. Ophthalmic arteries are patent. The posterior communicating arteries are patent with small faint caliber. Posterior cerebral circulation: V3/V4 segments: Calcified plaque. No focal stenosis. No intimal flap. Left vertebral artery is dominant. Posterior inferior cerebral arteries are patent. Basilar artery is patent without focal stenosis or intimal flap. Superior cerebellar arteries are patent. Anterior inferior cerebral arteries are not depicted on the exam. dietitian helper: Normal patency. No focal stenosis or abrupt cut off. Ancillary findings: Right-sided pleural effusion, moderate volume. Right-sided central venous line catheter tip is not included in the exam. Incomplete fusion posterior arch of C1. Phthsis bulbi, right eyeball. CT/CT angio head neck STROKE IMPRESSION: Calcified plaques in the carotid bulbs and proximal ICAs. No focal stenosis or dissection. No main cerebral artery occlusion or embolus. Atherosclerosis disease. Right-sided pleural effusion, moderate volume. This critical test result is communicated to: Emergency physician Dr. Jessica Reed via [employer] connect at 1:30 PM on August 18, 2024. Electronically signed by: Shadi Lopez MD 08/18/2024 01:33 PM EDT
--- NOTE | 2024-08-18 13:00 | ECG_ITS ---
Test Reason : stroke protocol Blood Pressure : */* mmHG Vent. Rate : 89 BPM Atrial Rate : 89 BPM P-R Int : 176 ms QRS Dur : 150 ms QT Int : 468 ms P-R-T Axes : 37 -24 45 degrees QTcB Int : 569 ms Normal sinus rhythm Possible Left atrial enlargement Right bundle branch block Abnormal ECG When compared with ECG of 31-Jul-2024 11:00, No significant change was found Referred By: Jessica Reed Electronically Signed By: JASKARAN COOL
[2024-08-18 13:04] LABS: Prothrombin Time Whole Bld POC 15.7 sec (11.1-13.5); ~PT, ~INR - Anti Coag Clinic 1.3 (0.9-1.1)
[2024-08-18 13:06] LABS: Glucose, Whole Blood 83 mg/dL (60-115)
[2024-08-18] MEDS: iohexoL 350 MG/ML 100 ML INFUS..BTL IV (13:19)
--- NOTE | 2024-08-18 13:22 | ED.NEUROSD ---
HPI - Neuro Symptoms/Deficit General Chief Complaint: Stroke Stated Complaint: R SIDED WEAKNESS Time Seen by Provider: 08/18/24 13:00 Source: patient, EMS and old records reviewed Mode of arrival: EMS Limitations: no limitations History of Present Illness ED Provider: DR. Reed HPI Narrative: This is a 34-year-old female with complex underlying medical history ESRD on HD, HTN, anemia, diabetic foot, DM, HFrEF, gastroparesis, blindness noncompliance with renal dialysis still last Sunday dialysis due for tomorrow, cardiomyopathy, patient presented by EMS as a stroke protocol, patient has been complaining of right-sided weakness since last night, slurred speech for 2 days now. Patient is complaining of generalized body ache. Patient is not taking anticoagulation. In the emergency department patient sustaining right side weakness and pain, able to move the right upper extremity with pronator drift arm is heavy and painful, and slurred speech that is noticed to be improving while she is in the ED. Related Data Home Medications ?Medication ?Instructions ?Recorded ?Confirmed albuterol sulfate 90 mcg/actuation 2 puff inhalation Q6H PRN wheezing 01/15/24 07/31/24 aerosol inhaler (Ventolin HFA) lidocaine 5 % topical patch 1 patch topical DAILY PRN Pain 01/15/24 07/31/24 nitroglycerin 0.4 mg sublingual 0.4 mg sublingual DIRECTED PRN 01/15/24 07/31/24 tablet Angina acetaminophen 325 mg tablet 650 mg PO Q4H PRN mild pain 03/11/24 07/31/24 calcium carbonate (Tums) 200 mg PO TIDWM 07/03/24 07/31/24 docusate sodium 100 mg capsule 100 mg PO BID PRN Constipation 07/31/24 07/31/24 (Colace) polyethylene glycol 3350 17 17 g PO BID PRN Constipation 07/31/24 07/31/24 gram/dose oral powder (Miralax) Previous Rx's ?Medication ?Instructions ?Recorded carvedilol 12.5 mg tablet 12.5 mg PO BID 90 days #180 tabs 12/16/23 hydralazine 50 mg tablet 50 mg PO TID 90 days #270 tabs 12/16/23 ondansetron 4 mg disintegrating 4 mg PO Q8H PRN nausea and 05/11/25 tablet vomiting #12 tabs amoxicillin 500 mg-potassium 1 tab PO BID #14 tabs 08/06/24 clavulanate 125 mg tablet doxycycline monohydrate 100 mg 100 mg PO BID #14 tabs 08/06/24 tablet oxycodone 5 mg tablet 5 mg PO Q8H PRN Pain #12 tabs 08/06/24 Allergies Allergy/AdvReac Type Severity Reaction Status Date / Time gabapentin Allergy Severe Facial Verified 08/18/24 13:11 Swelling tramadol Allergy Severe Facial Verified 08/18/24 13:11 Swelling vancomycin Allergy Severe Anaphylaxis Verified 08/18/24 13:11 azithromycin (From Zithromax) Allergy Intermediate Hives Verified 08/18/24 13:11 morphine (MORPHINE) Allergy Intermediate Itching Verified 08/18/24 13:11 Review of Systems Review of Systems: All other systems are reviewed and are negative Constitutional: Reports as per HPI and Reports no additional constitutional complaints Eyes: Reports as per HPI and Reports no additional eye complaints Reports system reviewed and no additional complaints, except as documented Cardiovascular: Reports as per HPI and Reports no additional cardiovascular complaints Respiratory: Reports as per HPI and Reports no additional respiratory complaints Gastrointestinal: Reports as per HPI and Reports no additional gastrointestinal complaints Genitourinary: Reports no additional female genitourinary complaints Musculoskeletal: Reports no additional musculoskeletal complaints Skin/Breast: Reports system reviewed and no additional complaints, except as docu Psychiatric: Reports no additional psychiatric complaints Endocrine: Reports no additional endocrine complaints Hematologic/Lymphatic: Reports no additional hematologic/lymphatic complaints Allergic/Immunologic: Reports no additional allergic/immunologic complaints Reports system reviewed and no additional complaints, except as documented and Reports Abnormal speech present [facility] Past Medical History Medical History Hypoxia End stage renal disease on dialysis Chronic ulcer of right foot due to diabetes mellitus Chronic ulcer of left foot due to diabetes mellitus Chronic ulcer of left foot due to diabetes mellitus DM foot ulcer ESRD on hemodialysis ESRD (end stage renal disease) Hypotonic neurogenic bladder Diabetic polyneuropathy ESRD (end stage renal disease) on dialysis Hypertensive emergency Non-compliance with renal dialysis Decompensated heart failure Congestive heart failure Renal failure Hypertension, uncontrolled Medical non-compliance Pericarditis Unspecified hypertension, condition or complication Metabolic acidosis Gastroparesis End stage chronic kidney disease Chronic kidney disease Anemia Chronic foot ulcer Plantar ulcer of left foot Major depressive disorder, single episode, severe Non-compliance with renal dialysis Hypertensive urgency MDD (major depressive disorder), recurrent episode MDD (major depressive disorder) Renal failure Foot ulcer CKD (chronic kidney disease) Hypertension Diabetic foot Hyperkalemia Vomiting Renal failure Hypertension Migraine Chronic pain ESRD on dialysis Non-compliance with renal dialysis Hypertension End-stage renal disease (ESRD) Diabetic foot ulcer associated with type 2 diabetes mellitus Diabetes ESRD needing dialysis Cardiomyopathy HFrEF (heart failure with reduced ejection fraction) delivery delivered Anemia in chronic kidney disease (CKD) CKD (chronic kidney disease) Headache, migraine Abnormal finding on echocardiogram Elevated troponin Chest pain Acute worsening of stage 3 chronic kidney disease Generalized edema Sepsis Cellulitis Pleural effusion CHF (congestive heart failure) (~06/07/22) Tachycardia Atypical chest pain Bone infection PAD (peripheral artery disease) Severe anemia Cellulitis and abscess of foot Osteomyelitis Asthma Depression with anxiety Diabetic retinopathy Type 2 diabetes mellitus with hyperglycemia, with long-term current use of insulin Blind right eye Diabetes Back pain Surgical History Tubal ligation status Previous section Hx laparoscopic cholecystectomy Hx of surgical procedure (~09/11/23) 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 Family History Family History Mother Coronary artery disease Myocardial infarction Stroke Diabetes mellitus Father Myocardial infarction Social History Social History Household Members: Family Household Members Other:: sister Housing: Apartment Are you a primary care coordination manager to a significant other at home: No Do you presently have visiting nurse or other home services: No Unable to assess alcohol history related to: Unknown Alcohol intake: never Comment: Patient refusing assistance OOB and alarms as well as camera despite educat Patient Tobacco Use Status: Never used Tobacco Smoked in Last 30 Days: No e-Cigarette/Vaping Use: Never Used Second Hand Smoke Exposure: No Use of substances other than those prescribed or required for medical reasons: No Advance Directives: Yes Advance Directives on File: Yes Advance Directives Date on File: 08/28/23 Do you have a plan to hurt others: No Plan service: No Current occupational status: unemployed and disabled Gender identity: Female Physical Exam Vital Signs: Vital Signs: Last Vital Signs Temp 97.7 F 08/18/24 15:12 Pulse 76 08/18/24 15:12 Resp 17 08/18/24 15:12 BP 167/97 H 08/18/24 15:12 Pulse Ox 97 08/18/24 15:12 O2 Del Method Room Air 08/18/24 15:12 O2 Flow Rate 2 08/18/24 13:27 Oxygen Flow Rate 2 08/18/24 13:11 BMI result Body Mass Index 32.2 Vital signs have been reviewed and appear to be correct. Blood pressure elevated. Heart rate normal. Respiratory rate normal. Temperature normal. Oxygen saturation normal. Appearance: Alert. Oriented X3. No acute distress. Head: Normal external exam. Normocephalic. Atraumatic. No Lynn signs noted. No raccoon eyes noted Eyes: PERRLA. EOMI. Conjunctiva and sclera normal. Eyelids normal. ENT: TM's Normal. Pharynx normal. Uvula midline. Moist mucous membranes. No trismus noted. No drooling noted. No muffled voice noted. Neck: Normal inspection. Neck supple. FROM. No adenopathy. Thyroid Normal. No meningeal signs. No neck mass noted. CVS: Normal heart rate and rhythm. Heart sound normal. No murmurs noted. Pulses normal throughout. Respiratory: No respiratory distress. Painless inspiration. Breath sounds normal. No wheezes/rales/rhonchi noted. Chest nontender. No accessory muscle usage noted or decreased air movement noted. Abdomen: Soft and nontender. Bowel sounds normal in all 4 quadrants. No distention noted. No organomegaly noted. No visible injury noted. Back: No CVA tenderness. Full range of motion noted. Skin: Skin warm and dry. Normal skin color. Normal skin turgor. No rashes/lesions/lacerations noted. Extremities: No lower extremity edema. Extremities exhibit normal range of motion. Extremities nontender. Neuro: Oriented X 3, patient speaking slowly with slurred speech. Cranial nerve exam: II-XII are grossly intact Mild right upper extremity weakness, No sensory deficit. Reflexes normal. Course Reevaluation(s) Reevaluation #1: 34-year-old female with a complex past medical history including dialysis came in by EMS as a stroke alert, patient has some weakness on right side felt to be secondary to pain, patient's symptoms started since yesterday patient out of would for thrombolysis, CTA also negative for LVO, will admit the patient for further evaluation. Time: 16:17 Medications Administered Discontinued Medications Generic Name Dose Route Start Last Admin Trade Name Brandon PRN Reason Stop Dose Admin Aspirin 325 mg 08/18/24 13:37 08/18/24 13:43 Aspirin Enteric Coated 325 Mg Tablet. PO 08/18/24 13:38 325 mg ONCE ONE Administration Carvedilol 12.5 mg 08/18/24 13:55 08/18/24 14:03 Carvedilol 12.5 Mg Tablet PO 08/18/24 13:56 12.5 mg ONCE ONE Administration Protocol Hydralazine HCl 50 mg 08/18/24 13:55 08/18/24 14:04 Hydralazine Hcl 50 Mg Tablet PO 08/18/24 13:56 50 mg ONCE ONE Administration Protocol Hydromorphone HCl 1 mg 08/18/24 14:21 08/18/24 14:29 Hydromorphone Hcl 1 Mg/Ml Syringe IVPUSH 08/18/24 14:22 1 mg ONCE ONE Administration Protocol Iohexol 100 ml 08/18/24 13:18 08/18/24 13:19 Iohexol 350 Mg/Ml 100 Ml Infus..Btl IV 08/18/24 13:19 70 ml ONCE ONE Administration Morphine Sulfate 2 mg 08/18/24 13:55 08/18/24 14:08 Morphine Sulfate 2 Mg/Ml Cartridge IVPUSH 08/18/24 13:56 Not Given ONCE ONE Protocol Ondansetron HCl 4 mg 08/18/24 13:55 08/18/24 14:03 Ondansetron Hcl 4 Mg/2 Ml Vial IVPUSH 08/18/24 13:56 4 mg ONCE ONE Administration Medical Decision Making Differential Diagnosis Differential Diagnoses: The differential diagnosis associated with the presentation includes (CVA, chronic pain, electrolyte derangement, severe anemia.) Admission/Observation Consideration of admission/observation: Escalation of care including admission/observation considered Consult Healthcare Provider Management of the patient was discussed with: Hospitalist Dr. Blanton Lab Data MDM Lab Attestation statement: I reviewed the patient's lab results. 08/18/24 13:27 08/18/24 13:27 Labs: Lab Results 08/18/24 08/18/24 08/18/24 Range/Units 12:57 12:59 13:27 WBC 5.3 (4.8-10.8) X10*3/uL RBC 2.38 L (4.20-5.50) X10*6/uL Hgb 7.6 L (12.0-16.0) g/dl Hct 22.0 L D (37.0-47.0) % MCV 92.4 (80.0-98.0) fL MCH 31.9 (27.0-33.0) pg MCHC 34.5 (31.0-35.0) g/dl RDW 16.6 H (11.0-16.0) % Plt Count 114 L (160-400) X10*3/uL MPV 11.7 (9.4-12.3) fL Immature Gran % (Auto) 0.4 (0.0-0.4) % Neut % (Auto) 76.5 H (45-73) % Lymph % (Auto) 12.0 L (20-40) % [place] % (Auto) 9.0 (2-11) % Eos % (Auto) 1.7 (0-4) % Baso % (Auto) 0.4 (0-2) % Lymph # (Auto) 0.6 L (1.2-4.9) X10*3/uL [place] # (Auto) 0.5 (0.1-1.2) X10*3/uL Eos # (Auto) 0.1 (0.0-0.4) X10*3/uL Baso # (Auto) 0.0 (0.0-0.2) X10*3/uL Abs Immat Gran (auto) 0.02 (0.00-0.03) X10*3/uL Absolute Neuts (auto) 4.1 (2.0-8.3) x10*3/uL Absolute Nucleated RBC 0.000 (0.0-0.012) X10*3/uL Nucleated RBC % (auto) 0.0 (0.0-0.2) /100WBC PT 14.1 H (10.9-12.4) SEC Whole Blood PT 15.7 H (11.1-13.5) sec INR 1.2 H (0.9-1.1) Whole Blood INR 1.3 H (0.9-1.1) APTT 32.3 D (26.0-36.8) SEC Sodium 137 (135-145) mmol/L Potassium 5.2 H D (3.3-5.1) mmol/L Chloride 102 (96-108) mmol/L Carbon Dioxide 17 L (22-29) mmol/L Anion Gap 23 H (12-20) BUN 104 H (9-16) mg/dL Creatinine 10.40 H* (0.5-1.4) mg/dL Estim Creat Clear Calc 8.4 Estimated GFR 4 POC Glucose 83 (60-115) mg/dL Random Glucose 80 (60-115) mg/dL Calcium 8.2 L (8.4-10.2) mg/dL Troponin I High Sens 186.2 H* D (<3.5-17.0) ng/L Triglycerides 61 (<150) mg/dL Cholesterol 121 (<200) mg/dL LDL Cholesterol, Calc 73 (<100) mg/dL HDL Cholesterol 36 L (>40) mg/dL // Range/Units 15:35 WBC (4.8-10.8) X10*3/uL RBC (4.20-5.50) X10*6/uL Hgb (12.0-16.0) g/dl Hct (37.0-47.0) % MCV (80.0-98.0) fL MCH (27.0-33.0) pg MCHC (31.0-35.0) g/dl RDW (11.0-16.0) % Plt Count (160-400) X10*3/uL MPV (9.4-12.3) fL Immature Gran % (Auto) (0.0-0.4) % Neut % (Auto) (45-73) % Lymph % (Auto) (20-40) % [place] % (Auto) (2-11) % Eos % (Auto) (0-4) % Baso % (Auto) (0-2) % Lymph # (Auto) (1.2-4.9) X10*3/uL [place] # (Auto) (0.1-1.2) X10*3/uL Eos # (Auto) (0.0-0.4) X10*3/uL Baso # (Auto) (0.0-0.2) X10*3/uL Abs Immat Gran (auto) (0.00-0.03) X10*3/uL Absolute Neuts (auto) (2.0-8.3) x10*3/uL Absolute Nucleated RBC (0.0-0.012) X10*3/uL Nucleated RBC % (auto) (0.0-0.2) /100WBC PT (10.9-12.4) SEC Whole Blood PT (11.1-13.5) sec INR (0.9-1.1) Whole Blood INR (0.9-1.1) APTT (26.0-36.8) SEC Sodium (135-145) mmol/L Potassium (3.3-5.1) mmol/L Chloride (96-108) mmol/L Carbon Dioxide (22-29) mmol/L Anion Gap (12-20) BUN (9-16) mg/dL Creatinine (0.5-1.4) mg/dL Estim Creat Clear Calc Estimated GFR POC Glucose (60-115) mg/dL Random Glucose (60-115) mg/dL Calcium (8.4-10.2) mg/dL Troponin I High Sens 180.0 H* (<3.5-17.0) ng/L Triglycerides (<150) mg/dL Cholesterol (<200) mg/dL LDL Cholesterol, Calc (<100) mg/dL HDL Cholesterol (>40) mg/dL Independent Interpretation I performed an independent interpretation of an: Plain X-Ray (Chest:Cardiomegaly versus pericardial effusion. No acute airspace disease.) and CT Scan (Head/CT angio:Calcified plaques in the carotid bulbs and proximal ICAs. No focal stenosis or dissection. No main cerebral artery occlusion or embolus. Atherosclerosis disease. Right-sided pleural effusion, moderate volume. ) Radiology Impression Discussion of test interpretation with radiology: I have reviewed the radiologist's reading. NIH Stroke Scale Internal: Initial- Upon Arrival Time: 13:28 Level of Consciousness: Alert Level of Consciousness Questions: Answers both questions correctly Level of Consciousness Commands: Performs both tasks correctly Best Gaze: Normal Visual: No visual loss (Patient is blind at baseline) Facial Palsy: Normal Motor Arm (Right): Drift Motor Arm (Left): No drift Motor Leg (Right): Drift Motor Leg (Left): No drift Limb Ataxia: Absent Sensory: Mild to moderate sensory loss Best Language: Mild to moderate aphasia Dysarthia: Normal Extinction and Inattention: No abnormality Score: 4 Discharge Plan Discharge Clinical Impression: Hypertensive emergency, RUE weakness Patient Disposition: Admitted As Inpatient Print Language: Tongan
--- NOTE | 2024-08-18 13:27 | PC.NURSE ---
pt biba from home as a stroke alert. EMS reports pt called c/o right sided numbness/weakness x last night w/ associated slurred speech x 2 days. pt is not anticoagulated. upon ED arrival - pt a&ox4. vss and up to date aside from being hypertensive. 2L via NC baseline - maintaining SPO2 w/o difficulty. no respiratory distress noted. no sob/wob noted. pt noted to have slur in speech w/ associated right sided pronator drift and weakness in RUE/RLE. pt transferred to CT immediately upon arrival. 20gIV in the left AC via EMS - patent/intact. CT/CXR completed. pt brought to ED7 once imaging was complete. changed into hospital attire. placed on the quality assurance monitor displaying nsr. slur in speech decreased/improved once returning to the room. right sided pronator drift still present. otherwise face symmetrical. pt is able to answer questions/follow commands appropriately. ekg completed. labs obtained/sent to lab. plan of care ongoing. call moore placed within reach.
[2024-08-18 13:34] LABS: MANUAL DIFF FLAG NO
[2024-08-18 13:35] LABS: Hematocrit 22.0 % (37.0-47.0); Hemoglobin 7.6 g/dl (12.0-16.0); Imm Gran Abs Auto 0.02 X10*3/uL (0.00-0.03); Imm Gran Pct Auto 0.4 % (0.0-0.4); Lymphocytes Absolute Auto 0.6 X10*3/uL (1.2-4.9); Mean Corpuscular HGB Conc 34.5 g/dl (31.0-35.0); Mean Corpuscular Hemoglobin 31.9 pg (27.0-33.0); Mean Corpuscular Volume 92.4 fL (80.0-98.0); NRBC Abs Auto 0.000 X10*3/uL (0.0-0.012); NRBC Pct Auto 0.0 /100WBC (0.0-0.2); Platelet Count 114 X10*3/uL (160-400); Red Blood Count 2.38 X10*6/uL (4.20-5.50); White Blood Count 5.3 X10*3/uL (4.8-10.8)
[2024-08-18] MEDS: Aspirin Enteric Coated 325 MG TABLET.DR PO (13:43)
[2024-08-18 13:44] LABS: INTERNATIONAL NORM RATIO 1.2 (0.9-1.1); Prothrombin Time 14.1 SEC (10.9-12.4)
[2024-08-18 13:46] LABS: Partial Thromboplastin Time 32.3 SEC (26.0-36.8)
[2024-08-18 13:48] LABS: Stroke Lab Use COMPLETE
[2024-08-18 13:57] LABS: Anion Gap 23 (12-20); Blood Urea Nitrogen 104 mg/dL (9-16); Calcium 8.2 mg/dL (8.4-10.2); Carbon Dioxide 17 mmol/L (22-29); Chloride 102 mmol/L (96-108); Cholesterol 121 mg/dL (<200); Creatinine Clr Calc Pharmacy 8.4; Estimated Glomerular Filt Rate 4; HDL Cholesterol 36 mg/dL (>40); Potassium 5.2 mmol/L (3.3-5.1); Sodium 137 mmol/L (135-145); Triglycerides 61 mg/dL (<150)
[2024-08-18 13:59] LABS: Troponin-I High Sensitivity 186.2 ng/L (<3.5-17.0)
--- OUTSIDE RECORDS SUMMARY | 2024-08-18 15:33 | XMS_ITS | Clinical Summary ---
[facility] Organization [facility] Address [address] [place] [address] Care Team Providers Care Site Leasing Agent Name Role Phone Betty Nugent MD Primary Care Provider [phone] Surgical History Surgery Date Site/Laterality Comments SECTION [...] age to complete this topic Care Teams Site Leasing Agent Relationship Specialty Start Date End Date Betty Nugent MD [address] [place] PCP - General Internal Medicine 01/10/18
[2024-08-18 16:13] LABS: Troponin-I High Sensitivity 180.0 ng/L (<3.5-17.0)
--- NOTE | 2024-08-18 16:57 | P.HPHOSP_ITS ---
History of Present Illness Date of Service: 08/18/24 Chief Complaint: weakness 34-year-old female with complex underlying medical history ESRD on HD, HTN, anemia, diabetic foot, DM, HFrEF, gastroparesis, blindness noncompliance with renal dialysis Sunday, cardiomyopathy, patient presented by EMS as a stroke protocol, patient has been complaining of right-sided weakness since last night, slurred speech for 2 days now. Patient is complaining of generalized body ache. Patient is not taking anticoagulation. In the emergency department, patient sustaining right side weakness and pain, able to move the right upper extremity with pronator drift arm is heavy and painful, and slurred speech that is noticed to be improving while she is in the ED. Review of Systems 2 Review of Systems: Denies any recent fever chills or decrease in appetite respiratory denies any shortness of breath coverage production cardiovascular is adjustment of any PND or edema gastrointestinal denies any dysphagia abdominal pain nausea vomiting or diarrhea genitourinary denies any dysuria frequency or hematuria musculoskeletal denies any joint pain or swelling neuropsych denies any weakness or seizures all other systems reviewed are negative [facility] Medical History (Updated 08/18/24 @ 17:08 by Tawny Taylor NP) Hypoxia End stage renal disease on dialysis Chronic ulcer of right foot due to diabetes mellitus Chronic ulcer of left foot due to diabetes mellitus DM foot ulcer ESRD on hemodialysis Hypotonic neurogenic bladder Diabetic polyneuropathy Hypertensive emergency Decompensated heart failure Renal failure Hypertension, uncontrolled Medical non-compliance Pericarditis Unspecified hypertension, condition or complication Metabolic acidosis Gastroparesis End stage chronic kidney disease Chronic kidney disease Anemia Plantar ulcer of left foot MDD (major depressive disorder) CKD (chronic kidney disease) Hypertension Hyperkalemia Vomiting Chronic pain ESRD on dialysis Non-compliance with renal dialysis End-stage renal disease (ESRD) Diabetic foot ulcer associated with type 2 diabetes mellitus Cardiomyopathy HFrEF (heart failure with reduced ejection fraction) delivery delivered Anemia in chronic kidney disease (CKD) CKD (chronic kidney disease) Abnormal finding on echocardiogram Elevated troponin Acute worsening of stage 3 chronic kidney disease Generalized edema Sepsis Cellulitis Pleural effusion Atypical chest pain Bone infection PAD (peripheral artery disease) Cellulitis and abscess of foot Osteomyelitis Asthma Depression with anxiety Diabetic retinopathy Blind right eye Diabetes Back pain Family History Mother Coronary artery disease Myocardial infarction Stroke Diabetes mellitus Father Myocardial infarction Surgical History Tubal ligation status Previous section Hx laparoscopic cholecystectomy Hx of surgical procedure (~09/11/23) 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 Social History Household Members: Family Household Members Other:: sister Housing: Apartment Are you a primary hearing care practitioner to a significant other at home: No Do you presently have visiting nurse or other home services: No Unable to assess alcohol history related to: Unknown Alcohol intake: never Comment: Patient refusing assistance OOB and alarms as well as camera despite educat Patient Tobacco Use Status: Never used Tobacco Smoked in Last 30 Days: No e-Cigarette/Vaping Use: Never Used Second Hand Smoke Exposure: No Use of substances other than those prescribed or required for medical reasons: No Advance Directives: Yes Advance Directives on File: Yes Advance Directives Date on File: 08/28/23 Do you have a plan to hurt others: No Plan Nutrition Risks: No Nutritional Risk service: No Current occupational status: unemployed and disabled Gender identity: Female Meds Allergies Allergy/AdvReac Type Severity Reaction Status Date / Time gabapentin Allergy Severe Facial Verified 08/18/24 13:11 Swelling tramadol Allergy Severe Facial Verified 08/18/24 13:11 Swelling vancomycin Allergy Severe Anaphylaxis Verified 08/18/24 13:11 azithromycin (From Zithromax) Allergy Intermediate Hives Verified 08/18/24 13:11 morphine (MORPHINE) Allergy Intermediate Itching Verified 08/18/24 13:11 Home Medications ?Medication ?Instructions ?Recorded ?Confirmed ?Last Taken ?Type albuterol sulfate 90 mcg/actuation 2 puff inhalation Q 6H PRN wheezing 01/15/24 08/18/24 08/18/24 History aerosol inhaler (Ventolin HFA) lidocaine 5 % topical patch 1 patch topical DAILY PRN Pain 01/15/24 08/18/24 02/24/24 History nitroglycerin 0.4 mg sublingual 0.4 mg sublingual D IRECTED PRN 01/15/24 08/18/24 Unknown History tablet Angina acetaminophen 325 mg tablet 650 mg PO Q4H PRN mild jamar n 03/11/24 08/18/24 Unknown History calcium carbonate (Tums) 200 mg PO TIDWM PRN Acid Ref lux 07/03/24 08/18/24 Unknown History Physical Exam 2 Vital Signs and Narrative: Vital Signs: Last Vital Signs Temp 97.7 F 08/18/24 15:12 Pulse 76 08/18/24 15:12 Resp 17 08/18/24 15:12 BP 167/97 H 08/18/24 15:12 Pulse Ox 97 08/18/24 15:12 O2 Del Method Room Air 08/18/24 15:12 O2 Flow Rate 2 08/18/24 13:27 Oxygen Flow Rate 2 08/18/24 13:11 BMI result Body Mass Index 32.2 Appearing in no acute distress head is normocephalic atraumatic eyes pupils are PERRLA sclera is anicteric mouth throat mucous membranes are intact and moist neck is supple no lymphadenopathy, no JVD noted lung sounds are clear to auscultation heart regular rate rhythm, clear S1, S2 positive bowel sounds, abdomen is soft, nontender neuro patient is alert x3, no focal deficits Results Labs 08/18/24 13:27 08/18/24 13:27 Labs: Laboratory Results - last 24 hr 08/18/24 08/18/24 08/18/24 12:57 12:59 13:27 MCV 92.4 MCH 31.9 MCHC 34.5 RDW 16.6 H Plt Count 114 L MPV 11.7 Immature Gran % (Auto) 0.4 Neut % (Auto) 76.5 H Lymph % (Auto) 12.0 L Garfield % (Auto) 9.0 Eos % (Auto) 1.7 Baso % (Auto) 0.4 Lymph # (Auto) 0.6 L Garfield # (Auto) 0.5 Eos # (Auto) 0.1 Baso # (Auto) 0.0 Abs Immat Gran (auto) 0.02 Absolute Neuts (auto) 4.1 Absolute Nucleated RBC 0.000 Nucleated RBC % (auto) 0.0 PT 14.1 H Whole Blood PT 15.7 H INR 1.2 H Whole Blood INR 1.3 H APTT 32.3 D Anion Gap 23 H Estim Creat Clear Calc 8.4 Estimated GFR 4 POC Glucose 83 Random Glucose 80 Calcium 8.2 L Troponin I High Sens 186.2 H* D Triglycerides 61 Cholesterol 121 LDL Cholesterol, Calc 73 HDL Cholesterol 36 L 08/18/24 15:35 MCV MCH MCHC RDW Plt Count MPV Immature Gran % (Auto) Neut % (Auto) Lymph % (Auto) Garfield % (Auto) Eos % (Auto) Baso % (Auto) Lymph # (Auto) Garfield # (Auto) Eos # (Auto) Baso # (Auto) Abs Immat Gran (auto) Absolute Neuts (auto) Absolute Nucleated RBC Nucleated RBC % (auto) PT Whole Blood PT INR Whole Blood INR APTT Anion Gap Estim Creat Clear Calc Estimated GFR POC Glucose Random Glucose Calcium Troponin I High Sens 180.0 H* Triglycerides Cholesterol LDL Cholesterol, Calc HDL Cholesterol Imaging Radiologist's Impressions: Impressions Head/Neck CTA 08/18/24 11:59 IMPRESSION: Calcified plaques in the carotid bulbs and proximal ICAs. No focal stenosis or dissection. No main cerebral artery occlusion or embolus. Atherosclerosis disease. Right-sided pleural effusion, moderate volume. This critical test result is communicated to: Emergency physician Dr. Jessica Reed via [employer] connect at 1:30 PM on August 18, 2024. Electronically signed by: Shadi Lopez MD 08/18/2024 01:33 PM EDT RP Head CT 08/18/24 12:00 IMPRESSION: No acute intracranial hemorrhage or acute brain abnormality by CT. Small vessel occlusive disease. Prior vascular insult right PICA territory. Atherosclerosis disease. Phthisis bulbi, right eyeball. This critical result was discussed with Dr. Jessica Reed at 1:15 PM hours on August 18, 2024.. It was ascertained that the content and urgency of the report was understood at the time of direct communication. Electronically signed by: Shadi Lopez MD 08/18/2024 01:19 PM EDT RP Chest X-Ray 08/18/24 13:10 IMPRESSION: Cardiomegaly versus pericardial effusion. No acute airspace disease. Electronically signed by: Shadi Lopez MD 08/18/2024 01:34 PM EDT RP Assessment and Plan (1) Hypertensive emergency: Status: Acute Plan 34-year-old female with a PMH significant for?ESRD on HD //[facility], [id number] 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, PAD s/p bilateral TMA, poorly controlled hypertension due to medication noncompliance, chronic hypoxemic respiratory failure on 3-4 L baseline supplemental oxygen, HFrEF, hx of multiple dialysis catheter line infections with bacteremia with MSSA, stenotrophomonas, and Pseudomonas, mood disorder, and chronic pain with opioid seeking behavior who presents to the ED weakness Weakness and slurred speech resolved missed dialysis neurology consultation ESRD on HD //[facility] Nephrology consult, follows with [facility] Follow BMP Monitor on telemetry Elevated troponin Pt with chronically elevated troponins No signs of ACS Monitor on telemetry Ffk-[id number]-elylxiacl type 2 diabetes With diabetic polyneuropathy/retinopathy Place on sliding scale insulin, diabetic diet HTN Continue carvedilol, hydralazine Chronic hypoxemic respiratory failure Not in acute exacerbation Pt on 3-4 L NC at home HRrEF Continue carvedilol Treat with dialysis as above Chronic pain with opioid seeking behavior Continue home oxycodone Full Code DVT Prophylaxis: Pneumatic compression due to line replacement Quality Stroke Does the patient have a stroke diagnosis?: No VTE Prior VTE?: No VTE Risk Level:: Medical - moderate - high VTE Device Contraindication: N/A - Device Ordered VTE Drug Contraindication: Treatment Not Indicated
--- NOTE | 2024-08-18 18:08 | PHA.MEDREC ---
Addendum entered by Ashvin Ramey [facility] 08/18/24 18:24: Med rec checked by [facility] Original Note: Pharmacy Consult ? Medication Reconciliation Pharmacy has completed the medication reconciliation. Spoke with pt and she confirmed her Dc packet from was up to date. Pt confirmed with me she finished the Amoxicillin-Pot and Doxycycline regimens in the last few days. pt confirmed she no longer taking the Docusate, Oxycodone or Miralax.
--- NOTE | 2024-08-18 20:30 | PC.NURSE ---
Patient complains of 10/[address] Donato briseno.
--- NOTE | 2024-08-18 21:41 | PC.NURSE ---
Patient continues to complaint of 10/10 generalized pain. This RN offered to patient oral Tylenol or Oxycodone. Patient refused Tylenol and Oxycodone at this time. Dr. Sewell is aware.
--- NOTE | 2024-08-18 23:30 | PC.NURSE ---
Patient is currently resting in the stretcher bed with her eyes closed, no s/s of pain/discomfort noted, RR 19, even chest wall rise and fall, call moore within patient's reach.
--- NOTE | 2024-08-18 23:45 | PC.NURSE ---
Dr. Sewell notified of BP 182/104, P 68. Patient denies chest pain/heart palpitation/ headache/SOB/nausea/vomiting, no new orders at this time.
[2024-08-19 01:39] VITALS: BP 177/101; PULSE 69; RESP 18; TEMP 36.4; O2SAT 95
[2024-08-19 03:38] VITALS: BP 186/99; PULSE 69; RESP 14
[2024-08-19 06:00] VITALS: BP 178/86; PULSE 69; RESP 17; O2SAT 97
[2024-08-19 06:00] LABS: Glucose, Whole Blood 59 mg/dL (60-115)
--- NOTE | 2024-08-19 06:04 | PC.NURSE ---
POC 53. Patient was given orange juice with 2 packets of sugar and alessio crackers, tolerated well. Dr. Sewell informed, no new orders at this time, plan to repeat POC in 30 min.
[2024-08-19 06:32] LABS: Glucose, Whole Blood 83 mg/dL (60-115)
--- NOTE | 2024-08-19 06:32 | PC.NURSE ---
Repeat POC 83. Patient complaining of generalized pain /. Patient agreeing to take Oxycodone [address] Sewell notified. ordered Oxycodone, awaiting medication to be verified by pharmacy.
[2024-08-19] MEDS: oxyCODONE HCl Immed Release 5 MG TABLET 10 MG PO (06:38)
--- NOTE | 2024-08-19 06:38 | PC.NURSE ---
Patient medicated with Oxycodone 10 mg PO for 10/10 generalized pain, effect pending.
--- NOTE | 2024-08-19 07:35 | PC.NURSE ---
Patient A&O. Patient has visual deficits but easily guided. Patient c/o pain all over rated 9/10. Patient medicated with oxycodone 1 hour prior, pt states its not effective. Patient refusing to eat at this time. Encouraged patient to have a couple bites of food and some of the juice, but patient still refused. patient DM, no s/sx of hypo/hyperglycemia will recheck POC. Patient requested to use commode, call moore provided. Bedding changed.
--- NOTE | 2024-08-19 08:30 | PC.NURSE ---
patient verbalizing 10/10 generalized body pain and that previous medication administration of oxycodone was ineffective. pt requesting dilaudid. admitting provider notified/aware of pt's request.
[2024-08-19 08:56] LABS: Glucose, Whole Blood 130 mg/dL (60-115)
[2024-08-19 08:58] VITALS: BP 162/89; PULSE 77
--- NOTE | 2024-08-19 09:14 | PC.NURSE ---
patient being transported to dialysis at this time.
--- NOTE | 2024-08-19 10:14 | PC.NURSE ---
patient requested pain medications while at dialysis. C/O pain all over rated 10/10. Adminstered dilaudid, effectiveness pending
--- NOTE | 2024-08-19 11:17 | MHC.CM.PN ---
Addendum entered by Abbie Galeano 08/19/24 12:17: CORRECTION: Patient is not active with [facility]; she refused their services. CM will follow. Original Note: IMM discussed verbally; Patient is in HD. Patient lives with her Sister/JOURNEYMAN PIPE FITTER/HCP/Josy and she uses a w/c to assist with mobility. Patient is active with [facility] for home O2, attends HD @ [facility], and attends the [facility]. Home/resume said services is the goal and CM has initiated and will follow for dc planning. PCP is Dr. Chirag Coppola and Patient will require BLS transport to home.
--- NOTE | 2024-08-19 11:19 | MHC.EDTECH ---
I came in @10:45 and the patient was in dialysis so I charted rounds for 10a-12p
[2024-08-19 12:24] LABS: Glucose, Whole Blood 94 mg/dL (60-115)
--- NOTE | 2024-08-19 12:35 | P.PNIM_ITS ---
Subjective Subjective Date of Service: 08/19/24 Review of Systems Follow up slurred speech Physical Exam 2 Vital Signs: Vital Signs: Last Vital Signs Temp 97.5 F 08/19/24 01:39 Pulse 77 08/19/24 08:58 Resp 17 08/19/24 06:00 BP 162/89 H 08/19/24 08:58 Pulse Ox 97 08/19/24 06:00 O2 Del Method Nasal Cannula 08/19/24 06:00 O2 Flow Rate 2 08/19/24 03:38 Oxygen Flow Rate 2 08/18/24 13:11 BMI result Body Mass Index 32.2 Appearing in no acute distress lung sounds are clear to auscultation heart regular rate rhythm, clear S1, S2 positive bowel sounds, abdomen is soft, nontender neuro patient is alert x3, no focal deficits Objective Data Active Medications Albuterol Sulfate (Albuterol Sulfate 90 Mcg 8 Gm Inhaler) 2 puff INHALE Q6H PRN PRN Reason: Wheezing Carvedilol (Carvedilol 12.5 Mg Tablet) 12.5 mg PO BID [facility]; Protocol Last Admin: 08/19/24 08:58 Dose: 12.5 mg Documented By: HORACIO Diphenhydramine HCl (Diphenhydramine Hcl 50 Mg/Ml Vial) 25 mg IVPUSH Q12H PRN PRN Reason: allergy Last Admin: 08/19/24 12:14 Dose: 25 mg Documented By: MARIANA Hydralazine HCl (Hydralazine Hcl 50 Mg Tablet) 50 mg PO TID [facility]; Protocol Last Admin: 08/19/24 08:58 Dose: 50 mg Documented By: HORACIO Hydromorphone HCl (Hydromorphone Hcl 0.5 Mg/0.5 Ml Syringe) 0.5 mg IVPUSH Q12H PRN; Protocol PRN Reason: Pain, Severe (Pain Scale 7-10) Last Admin: 08/19/24 10:12 Dose: 0.5 mg Documented By: MARIANA Nitroglycerin (Nitroglycerin 0.4 Mg Tab.Subl) 0.4 mg SUBLINGUAL Q5MX3 PRN PRN Reason: Angina Labs 08/18/24 13:27 08/18/24 13:27 Labs: Laboratory Results - last 24 hr 08/18/24 08/18/2425 12:57 12:59 13:27 MCV 92.4 MCH 31.9 MCHC 34.5 RDW 16.6 H Plt Count 114 L MPV 11.7 Immature Gran % (Auto) 0.4 Neut % (Auto) 76.5 H Lymph % (Auto) 12.0 L [place] % (Auto) 9.0 Eos % (Auto) 1.7 Baso % (Auto) 0.4 Lymph # (Auto) 0.6 L [place] # (Auto) 0.5 Eos # (Auto) 0.1 Baso # (Auto) 0.0 Abs Immat Gran (auto) 0.02 Absolute Neuts (auto) 4.1 Absolute Nucleated RBC 0.000 Nucleated RBC % (auto) 0.0 PT 14.1 H Whole Blood PT 15.7 H INR 1.2 H Whole Blood INR 1.3 H APTT 32.3 D Anion Gap 23 H Estim Creat Clear Calc 8.4 Estimated GFR 4 POC Glucose 83 Random Glucose 80 Calcium 8.2 L Troponin I High Sens 186.2 H* D Triglycerides 61 Cholesterol 121 LDL Cholesterol, Calc 73 HDL Cholesterol 36 L 08/18/24 08/19/24 08/19/24 15:35 05:56 06:28 MCV MCH MCHC RDW Plt Count MPV Immature Gran % (Auto) Neut % (Auto) Lymph % (Auto) [place] % (Auto) Eos % (Auto) Baso % (Auto) Lymph # (Auto) [place] # (Auto) Eos # (Auto) Baso # (Auto) Abs Immat Gran (auto) Absolute Neuts (auto) Absolute Nucleated RBC Nucleated RBC % (auto) PT Whole Blood PT INR Whole Blood INR APTT Anion Gap Estim Creat Clear Calc Estimated GFR POC Glucose 59 L* 83 Random Glucose Calcium Troponin I High Sens 180.0 H* Triglycerides Cholesterol LDL Cholesterol, Calc HDL Cholesterol 08/19/24 08/19/24 08:51 12:10 MCV MCH MCHC RDW Plt Count MPV Immature Gran % (Auto) Neut % (Auto) Lymph % (Auto) [place] % (Auto) Eos % (Auto) Baso % (Auto) Lymph # (Auto) [place] # (Auto) Eos # (Auto) Baso # (Auto) Abs Immat Gran (auto) Absolute Neuts (auto) Absolute Nucleated RBC Nucleated RBC % (auto) PT Whole Blood PT INR Whole Blood INR APTT Anion Gap Estim Creat Clear Calc Estimated GFR POC Glucose 130 H 94 Random Glucose Calcium Troponin I High Sens Triglycerides Cholesterol LDL Cholesterol, Calc HDL Cholesterol Assessment and Plan (1) RUE weakness: Status: Acute Plan 34-year-old female with a PMH significant for?ESRD on HD /, [id number] 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, PAD s/p bilateral TMA, poorly controlled hypertension due to medication noncompliance, chronic hypoxemic respiratory failure on 3-4 L baseline supplemental oxygen, HFrEF, hx of multiple dialysis catheter line infections with bacteremia with MSSA, stenotrophomonas, and Pseudomonas, mood disorder, and chronic pain with opioid seeking behavior who presents to the ED weakness Weakness and slurred speech resolved missed dialysis MRI neurology consultation ESRD on HD / Nephrology consult, follows with RTANE Follow BMP Monitor on telemetry Elevated troponin Pt with chronically elevated troponins No signs of ACS Monitor on telemetry [id number] type 2 diabetes With diabetic polyneuropathy/retinopathy Place on sliding scale insulin, diabetic diet HTN Continue carvedilol, hydralazine Chronic hypoxemic respiratory failure Not in acute exacerbation Pt on 3-4 L NC at home HRrEF Continue carvedilol Treat with dialysis as above Chronic pain with opioid seeking behavior Continue home oxycodone Full Code DVT Prophylaxis: Pneumatic compression due to line replacement Quality Stroke Does the patient have a stroke diagnosis?: No VTE Prior VTE?: No VTE Risk Level:: Medical - moderate - high VTE Device Contraindication: N/A - Device Ordered VTE Drug Contraindication: Treatment Not Indicated
--- NOTE | 2024-08-19 12:57 | MHC.EDTECH ---
lunch tray given
[2024-08-19 13:00] LABS: Glucose, Whole Blood 101 mg/dL (60-115)
[2024-08-19 15:22] LABS: Blood Urea Nitrogen 66 mg/dL (9-16); Calcium 7.9 mg/dL (8.4-10.2); Creatinine Clr Calc Pharmacy 12.5; Estimated Glomerular Filt Rate 7
[2024-08-19 15:33] LABS: Anion Gap 18 (12-20); Carbon Dioxide 22 mmol/L (22-29); Chloride 100 mmol/L (96-108); Potassium 4.2 mmol/L (3.3-5.1); Sodium 136 mmol/L (135-145)
[2024-08-19 16:00] VITALS: BP 175/85; PULSE 73; RESP 18; TEMP 36.6; O2SAT 99
[2024-08-19 19:22] VITALS: BP 132/62; PULSE 72; RESP 18; TEMP 36.6; O2SAT 97
--- NOTE | 2024-08-19 23:15 | P.CONNP_ITS ---
History of Present Illness Reason for Consult Consult date: 08/19/24 Reason for consult: RTANE consulted for ESRD and HD management admitted for , suspected cva Chief Complaint Chief complaint: missed dialysis, right sided weakness History of Present Illness Narrative: 34-year-old female with PMH of ESRD on HD TTS (renal biopsy 2021: Advanced diabetic nephropathy with 70% glomera sclerosis, nodular sclerosis, severe interstitial fibrosis), nonischemic cardiomyopathy, chronic HFpEF EF 40-50%, T2DM, HTN, gastroparesis, asthma, blindness of right eye, and seizure disorder on Keppra who presented to the ED with weakness PMFSH Past Medical History Medical History (Updated 08/19/24 @ 23:22 by Ed Carver MD) ESRD on dialysis Hypoxia End stage renal disease on dialysis Chronic ulcer of right foot due to diabetes mellitus Chronic ulcer of left foot due to diabetes mellitus DM foot ulcer ESRD on hemodialysis Hypotonic neurogenic bladder Diabetic polyneuropathy Hypertensive emergency Decompensated heart failure Renal failure Hypertension, uncontrolled Medical non-compliance Pericarditis Unspecified hypertension, condition or complication Metabolic acidosis Gastroparesis End stage chronic kidney disease Chronic kidney disease Anemia Plantar ulcer of left foot MDD (major depressive disorder) CKD (chronic kidney disease) Hypertension Hyperkalemia Vomiting Chronic pain Non-compliance with renal dialysis End-stage renal disease (ESRD) Diabetic foot ulcer associated with type 2 diabetes mellitus Cardiomyopathy HFrEF (heart failure with reduced ejection fraction) delivery delivered Anemia in chronic kidney disease (CKD) CKD (chronic kidney disease) Abnormal finding on echocardiogram Elevated troponin Acute worsening of stage 3 chronic kidney disease Generalized edema Sepsis Cellulitis Pleural effusion Atypical chest pain Bone infection PAD (peripheral artery disease) Cellulitis and abscess of foot Osteomyelitis Asthma Depression with anxiety Diabetic retinopathy Blind right eye Diabetes Back pain Family History Family History Mother Coronary artery disease Myocardial infarction Stroke Diabetes mellitus Father Myocardial infarction Surgical History Surgical History Tubal ligation status Previous section Hx laparoscopic cholecystectomy Hx of surgical procedure (~09/11/23) 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 Social History Social History Household Members: Unknown / Unable to assess Household Members Other:: sister Housing: Unknown / Unable to assess Are you a primary anesthesiologist and critical care to a significant other at home: No Unable to assess alcohol history related to: Unknown Alcohol intake: never Comment: Patient refusing assistance OOB and alarms as well as camera despite educat Patient Tobacco Use Status: Never used Tobacco e-Cigarette/Vaping Use: Never Used Second Hand Smoke Exposure: No Advance Directives Date on File: 08/28/23 service: No Current occupational status: unemployed and disabled Gender identity: Female Meds Allergies Allergy/AdvReac Type Severity Reaction Status Date / Time gabapentin Allergy Severe Facial Verified 08/18/24 13:11 Swelling tramadol Allergy Severe Facial Verified 08/18/24 13:11 Swelling vancomycin Allergy Severe Anaphylaxis Verified 08/18/24 13:11 azithromycin (From Zithromax) Allergy Intermediate Hives Verified 08/18/24 13:11 morphine (MORPHINE) Allergy Intermediate Itching Verified 08/18/24 13:11 Active Medications: Current Medications Albuterol Sulfate (Albuterol Sulfate 90 Mcg 8 Gm Inhaler) 2 puff INHALE Q6H PRN PRN Reason: Wheezing Carvedilol (Carvedilol 12.5 Mg Tablet) 12.5 mg PO BID [facility]; Protocol Last Admin: 08/19/24 22:20 Dose: 12.5 mg Diphenhydramine HCl (Diphenhydramine Hcl 50 Mg/Ml Vial) 25 mg IVPUSH Q12H PRN PRN Reason: allergy Last Admin: 08/19/24 12:14 Dose: 25 mg Hydralazine HCl (Hydralazine Hcl 50 Mg Tablet) 50 mg PO TID [facility]; Protocol Last Admin: 08/19/24 22:20 Dose: 50 mg Hydromorphone HCl (Hydromorphone Hcl 0.5 Mg/0.5 Ml Syringe) 0.5 mg IVPUSH Q12H PRN; Protocol PRN Reason: Pain, Severe (Pain Scale 7-10) Last Admin: 08/19/24 10:12 Dose: 0.5 mg Nitroglycerin (Nitroglycerin 0.4 Mg Tab.Subl) 0.4 mg SUBLINGUAL Q5MX3 PRN PRN Reason: Angina Home Medications ?Medication ?Instructions ?Recorded ?Confirmed ?Last Taken ?Type albuterol sulfate 90 mcg/actuation 2 puff inhalation Q 6H PRN wheezing 01/15/24 08/18/24 08/18/24 History aerosol inhaler (Ventolin HFA) lidocaine 5 % topical patch 1 patch topical DAILY PRN Pain 01/15/24 08/18/24 02/24/24 History nitroglycerin 0.4 mg sublingual 0.4 mg sublingual D IRECTED PRN 01/15/24 08/18/24 Unknown History tablet Angina acetaminophen 325 mg tablet 650 mg PO Q4H PRN mild jamar n 03/11/24 08/18/24 Unknown History calcium carbonate (Tums) 200 mg PO TIDWM PRN Acid Ref lux 07/03/24 08/18/24 Unknown History Physical Exam Vital Signs: Last Vital Signs Temp 97.9 F 08/19/24 19:22 Pulse 72 08/19/24 19:22 Resp 18 08/19/24 19:22 BP 132/62 08/19/24 19:22 Pulse Ox 97 08/19/24 19:22 O2 Del Method Room Air 08/19/24 19:22 O2 Flow Rate 2 08/19/24 03:38 Oxygen Flow Rate 2 08/18/24 13:11 BMI result Body Mass Index 32.2 cvs; s1s2 Rs; cta Abd; sfot Results Lab Results 08/18/24 13:27 08/19/24 14:55 Lab results: Chemistry 08/18/24 08/19/24 13:27 14:55 Sodium 137 136 Potassium 5.2 H D 4.2 Carbon Dioxide 17 L 22 BUN 104 H 66 H Creatinine 10.40 H* 7.02 H* Calcium 8.2 L 7.9 L Hematology 08/18/24 13:27 WBC 5.3 Hgb 7.6 L Plt Count 114 L Assessment and Plan (1) ESRD on dialysis: Status: Acute Plan Shereen Taylor is a 32-year-old female with PMH of ESRD on HD TTS (renal biopsy 2021: Advanced diabetic nephropathy with 70% glomera sclerosis, nodular sclerosis, severe interstitial fibrosis), nonischemic cardiomyopathy, chronic HFpEF EF 40-50%, T2DM, HTN, gastroparesis, asthma, blindness of right eye, and seizure disorder on Keppra, admitted for stroke rausch 1. ESRD Patient dialyzes TTS at [facility] via [facility] 2. HTN / Volume Chronically, patient takes Coreg 12.5mg BID, hydralazine 50mg TID, losartan 50mg daily, 3. Nephrogenic Anemia 4. Secondary Hyperparathyroidism / MBD Plan- - TTS inpt - Continue Coreg 12.5mg BID, hydralazine 50mg TID - transfuse if hb < 7 , davin and procrit for treatment - velphoro 500mg TID w/ mariia - Renal diet Procedures Date of Service Date of Service: 08/19/24
[2024-08-20] VITALS: BP 119/56; PULSE 71; RESP 18; TEMP 36.2; O2SAT 89
[2024-08-20 07:59] VITALS: BP 103/60; PULSE 68; RESP 20; TEMP 36.2; O2SAT 100
[2024-08-20 11:12] VITALS: BP 119/73; PULSE 72; RESP 20; TEMP 36.2; O2SAT 99
--- NOTE | 2024-08-20 12:34 | PC.NURSE ---
Patient off unit for MRI
--- NOTE | 2024-08-20 14:14 | P.PNIM_ITS ---
Subjective Subjective Date of Service: 08/20/24 Interval History: seen and evaluated for reported slurred speech and right sided weakness speech fluent reports RUE weakness and facial droop no fever or chills no other events Review of Systems Review of Systems: Yes all other systems are reviewed and are negative Physical Exam 2 Vital Signs: Vital Signs: Last Vital Signs Temp 97.1 F 08/20/24 11:12 Pulse 72 08/20/24 11:12 Resp 20 08/20/24 11:12 BP 119/73 08/20/24 11:12 Pulse Ox 99 08/20/24 11:12 O2 Del Method Nasal Cannula 08/20/24 11:12 O2 Flow Rate 2 08/20/24 11:12 Oxygen Flow Rate 2 08/18/24 13:11 BMI result Body Mass Index 32.2 Const: Other: Constitutional : interactive, not in distress Cardiovascular : no JVP, no lower extremity edema Respiratory : bilateral chest movement, not in resp distress Gastrointestinal: soft, lax, Non tender Skin : Warm, Dry Neurological : Alert & oriented , No focal deficit, mild right sided facial flattening , normal sensation, both upper extremities strong Objective Data Active Medications Albuterol Sulfate (Albuterol Sulfate 90 Mcg 8 Gm Inhaler) 2 puff INHALE Q6H PRN PRN Reason: Wheezing Carvedilol (Carvedilol 12.5 Mg Tablet) 12.5 mg PO BID [facility]; Protocol Last Admin: 08/20/24 10:28 Dose: Not Given Documented By: BEAU Non-Admin Reason: Patient Refused Diphenhydramine HCl (Diphenhydramine Hcl 50 Mg/Ml Vial) 25 mg IVPUSH Q12H PRN PRN Reason: allergy Last Admin: 08/20/24 12:19 Dose: 25 mg Documented By: BEAU Hydralazine HCl (Hydralazine Hcl 50 Mg Tablet) 50 mg PO TID [facility]; Protocol Last Admin: 08/20/24 10:29 Dose: Not Given Documented By: BEAU Non-Admin Reason: Patient Refused Hydromorphone HCl (Hydromorphone Hcl 0.5 Mg/0.5 Ml Syringe) 0.5 mg IVPUSH Q12H PRN; Protocol PRN Reason: Pain, Severe (Pain Scale 7-10) Last Admin: 08/20/24 10:25 Dose: 0.5 mg Documented By: BEAU Nitroglycerin (Nitroglycerin 0.4 Mg Tab.Subl) 0.4 mg SUBLINGUAL Q5MX3 PRN PRN Reason: Angina Labs 08/18/24 13:27 08/19/24 14:55 Labs: Laboratory Results - last 24 hr 08/19/24 14:55 Anion Gap 18 Estim Creat Clear Calc 12.5 Estimated GFR 7 Random Glucose 110 Calcium 7.9 L Assessment and Plan (1) ESRD on dialysis: Status: Acute (2) RUE weakness: Status: Acute (3) Hypertensive emergency: Status: Acute Plan 34-year-old female with a PMH significant for?ESRD on HD //Sun, [id number] 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 CT and CTA negative for acute findings MRI ; highly suspicious for inflammatory demyelinating disease (multiple sclerosis), with a likely active demyelinating plaque in the left anterior thalamus measuring 0.9 x 0.7 x 1.0 cm. There is involvement of the central camilla, right cerebellum, and right superior medulla. neurology consultation pain; prn Dilaudid ESRD on HD //Sun Nephrology consult, follows with RTANE Follow BMP Monitor on telemetry Elevated troponin chronically elevated troponins No signs of ACS Monitor on telemetry [id number] type 2 diabetes With diabetic polyneuropathy/retinopathy Place on sliding scale insulin, diabetic diet HTN Continue carvedilol, hydralazine Chronic hypoxemic respiratory failure Not in acute exacerbation Pt on 3-4 L NC at home HRrEF Continue carvedilol Treat with dialysis as above Chronic pain with opioid seeking behavior Continue home oxycodone Full Code DVT Prophylaxis: Pneumatic compression due to line replacement Patient will need inpatient stay overnight pending neurology evaluation for possible MS and need to treatment with IV medications which can not be done at any less acute facility Quality Stroke Does the patient have a stroke diagnosis?: No VTE Prior VTE?: No VTE Risk Level:: Medical - moderate - high VTE Device Contraindication: N/A - Device Ordered VTE Drug Contraindication: Treatment Not Indicated
--- NOTE | 2024-08-20 16:05 | MHC.CM.PN ---
EMR REVIEWED, PER MD NOTE/ BRAIN MRI PT WILL REMAIN INPT D/T POSSIBLE MS, CM WILL CONT TO FOLLOW DC NEEDS.
--- NOTE | 2024-08-20 17:25 | P.CNNE_ITS ---
History of Present Illness Data of Consult Service Date: 08/20/24 Primary Care Provider: Genevieve Casillas MD HPI Reason for consult: slurred speech and hemiparesis This is a 34-year-old female with complex medical history of end stage CKD on hemodialysis, HTN, anemia, diabetic foot, DM, HFrEF, gastroparesis, blindness noncompliance with renal dialysis Sunday, cardiomyopathy, patient presented by EMS as a stroke protocol, patient has been complaining of right-sided weakness since last night, slurred speech for 2 days now. Patient is complaining of generalized body ache. Patient is not taking anticoagulation. She is blind and has bilateral distal foot amputations. REPLACED BY [facility] Past Medical History Medical History (Updated 08/20/24 @ 18:17 by Lynsey Michelle MD) ESRD on dialysis Hypoxia End stage renal disease on dialysis Chronic ulcer of right foot due to diabetes mellitus Chronic ulcer of left foot due to diabetes mellitus DM foot ulcer ESRD on hemodialysis Hypotonic neurogenic bladder Diabetic polyneuropathy Hypertensive emergency Decompensated heart failure Renal failure Hypertension, uncontrolled Medical non-compliance Pericarditis Unspecified hypertension, condition or complication Metabolic acidosis Gastroparesis End stage chronic kidney disease Chronic kidney disease Anemia Plantar ulcer of left foot MDD (major depressive disorder) CKD (chronic kidney disease) Hypertension Hyperkalemia Vomiting Chronic pain Non-compliance with renal dialysis End-stage renal disease (ESRD) Diabetic foot ulcer associated with type 2 diabetes mellitus Cardiomyopathy HFrEF (heart failure with reduced ejection fraction) delivery delivered Anemia in chronic kidney disease (CKD) CKD (chronic kidney disease) Abnormal finding on echocardiogram Elevated troponin Acute worsening of stage 3 chronic kidney disease Generalized edema Sepsis Cellulitis Pleural effusion Atypical chest pain Bone infection PAD (peripheral artery disease) Cellulitis and abscess of foot Osteomyelitis Asthma Depression with anxiety Diabetic retinopathy Blind right eye Diabetes Back pain Family History Family History Mother Coronary artery disease Myocardial infarction Stroke Diabetes mellitus Father Myocardial infarction Surgical History Surgical History Tubal ligation status Previous section Hx laparoscopic cholecystectomy Hx of surgical procedure (~09/11/23) 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 Social History Social History Household Members: Unknown / Unable to assess Household Members Other:: sister Housing: Unknown / Unable to assess Are you a primary critical care transport nurse to a significant other at home: No Unable to assess alcohol history related to: Unknown Alcohol intake: never Comment: Patient refusing assistance OOB and alarms as well as camera despite educat Patient Tobacco Use Status: Never used Tobacco e-Cigarette/Vaping Use: Never Used Second Hand Smoke Exposure: No Advance Directives Date on File: 08/28/23 service: No Current occupational status: unemployed and disabled Gender identity: Female Meds Allergies Allergy/AdvReac Type Severity Reaction Status Date / Time gabapentin Allergy Severe Facial Verified 08/18/24 13:11 Swelling tramadol Allergy Severe Facial Verified 08/18/24 13:11 Swelling vancomycin Allergy Severe Anaphylaxis Verified 08/18/24 13:11 azithromycin (From Zithromax) Allergy Intermediate Hives Verified 08/18/24 13:11 morphine (MORPHINE) Allergy Intermediate Itching Verified 08/18/24 13:11 Active Medications: Current Medications Albuterol Sulfate (Albuterol Sulfate 90 Mcg 8 Gm Inhaler) 2 puff INHALE Q6H PRN PRN Reason: Wheezing Carvedilol (Carvedilol 12.5 Mg Tablet) 12.5 mg PO BID [facility]; Protocol Last Admin: 08/20/24 10:28 Dose: Not Given Diphenhydramine HCl (Diphenhydramine Hcl 50 Mg/Ml Vial) 25 mg IVPUSH Q6H PRN PRN Reason: allergy Hydralazine HCl (Hydralazine Hcl 50 Mg Tablet) 50 mg PO TID [facility]; Protocol Last Admin: 08/20/24 15:58 Dose: Not Given Hydromorphone HCl (Hydromorphone Hcl 0.5 Mg/0.5 Ml Syringe) 0.5 mg IVPUSH Q8H PRN; Protocol PRN Reason: Pain, Severe (Pain Scale 7-10) Methylprednisolone Sodium Succinate 1,000 mg/ Sodium Chloride 66 mls @ 66 mls/hr IV DAILY [facility] Stop: 08/25/24 16:39 Nitroglycerin (Nitroglycerin 0.4 Mg Tab.Subl) 0.4 mg SUBLINGUAL Q5MX3 PRN PRN Reason: Angina Home Medications ?Medication ?Instructions ?Recorded ?Confirmed ?Last Taken ?Type albuterol sulfate 90 mcg/actuation 2 puff inhalation Q 6H PRN wheezing 01/15/24 08/18/24 08/18/24 History aerosol inhaler (Ventolin HFA) lidocaine 5 % topical patch 1 patch topical DAILY PRN Pain 01/15/24 08/18/24 02/24/24 History nitroglycerin 0.4 mg sublingual 0.4 mg sublingual D IRECTED PRN 01/15/24 08/18/24 Unknown History tablet Angina acetaminophen 325 mg tablet 650 mg PO Q4H PRN mild jamar n 03/11/24 08/18/24 Unknown History calcium carbonate (Tums) 200 mg PO TIDWM PRN Acid Ref lux 07/03/24 08/18/24 Unknown History Physical Exam 2 Vital Signs: Vital Signs: Last Vital Signs Temp 97.1 F 08/20/24 11:12 Pulse 72 08/20/24 11:12 Resp 20 08/20/24 11:12 BP 119/73 08/20/24 11:12 Pulse Ox 99 08/20/24 11:12 O2 Del Method Nasal Cannula 08/20/24 11:12 O2 Flow Rate 2 08/20/24 11:12 Oxygen Flow Rate 2 08/18/24 13:11 BMI result Body Mass Index 32.2 Neuro: Other: Blind. Alert and oriented. speech is clear. Follows commands. MIld right hemiparesis 4+/ 5 . Areflexic Results Labs 08/18/24 13:27 08/19/24 14:55 Assessment and Plan (1) Multiple sclerosis: Status: Acute Current MRI shows worsening of white matter disease compared to MRI of Jan 2023 with lesions in brain stem, medulla, camilla and basal ganglia, corpus callosum consistent with MS. Recom: Contrast enhanced MRI brain to assess active lesions. Check sedrate, MUNA and Lyme titers. IV Solumedrol 1gm daily for 5 days. Procedures Date of Service Date of Service: 08/20/24
[2024-08-20] MEDS: methylPREDNISolone Sod Succ 1,000 MG in 0.9 % Sodium Chloride 50 ML 66 MG IV (18:54)
[2024-08-20 19:40] VITALS: BP 133/63; PULSE 77; RESP 16; TEMP 36.2; O2SAT 95
--- NOTE | 2024-08-20 21:47 | P.PNNP_ITS ---
Subjective Subjective Date of Service: 08/20/24 Interval history: seen and evaluated for reported slurred speech and right sided weakness speech fluent reports RUE weakness and facial droop no fever or chills no other events Physical Exam 2 Vital Signs: Vital Signs: Last Vital Signs Temp 97.1 F 08/20/24 19:40 Pulse 77 08/20/24 19:40 Resp 16 08/20/24 19:40 BP 133/63 08/20/24 19:40 Pulse Ox 95 08/20/24 19:40 O2 Del Method Nasal Cannula 08/20/24 19:40 O2 Flow Rate 2 08/20/24 19:40 Oxygen Flow Rate 2 08/18/24 13:11 BMI result Body Mass Index 32.2 Objective Data Labs 08/18/24 13:27 08/19/24 14:55 Procedures Date of Service Date of Service: 08/20/24 Assessment & Plan Assessment and plan (1) ESRD on dialysis: Status: Acute Plan Shereen Taylor is a 32-year-old female with PMH of ESRD on HD TTS (renal biopsy 2021: Advanced diabetic nephropathy with 70% glomera sclerosis, nodular sclerosis, severe interstitial fibrosis), nonischemic cardiomyopathy, chronic HFpEF EF 40-50%, T2DM, HTN, gastroparesis, asthma, blindness of right eye, and [facility], admitted for stroke rausch 1. ESRD Patient dialyzes TTS at [facility] via [facility] 2. HTN / Volume Chronically, patient takes Coreg 12.5mg BID, hydralazine 50mg TID, losartan 50mg daily, 3. Nephrogenic Anemia 4. Secondary Hyperparathyroidism / MBD Plan- - TTS inpt - extra treatment today as she cut treatment time yesterday - Continue Coreg 12.5mg BID, hydralazine 50mg TID - transfuse if hb < 7 , venofer and procrit for treatment - velphoro 500mg TID w/ mariia - Renal diet Time Spent With Patient Time: Total time managing care of this patient today ____ minutes. Progress Note: Quality Stroke Does the patient have a stroke diagnosis?: No
[2024-08-20 23:52] VITALS: BP 173/82; PULSE 79; RESP 16; TEMP 36.1; O2SAT 94
[2024-08-21 03:25] VITALS: BP 170/82; PULSE 78; RESP 18; TEMP 36.3; O2SAT 95
--- NOTE | 2024-08-21 04:01 | PC.NURSE ---
Pt refused Hydralazine and Coreg around 2100. Pt bp 170s around 0000. Pt then agreeable to taking Hydralazine and Coreg.
[2024-08-21 07:13] VITALS: BP 172/82; PULSE 98; RESP 18; TEMP 36.7; O2SAT 93
[2024-08-21] MEDS: methylPREDNISolone Sod Succ 1,000 MG in 0.9 % Sodium Chloride 50 ML 66 MG IV (13:53)
--- NOTE | 2024-08-21 14:25 | P.PNIM_ITS ---
Subjective Subjective Date of Service: 08/21/24 Interval History: Seen and examined this morning Follow-up for right-sided weakness, new onset MS right side feels heavy, no slurred speech Review of Systems Review of Systems: Yes all other systems are reviewed and are negative Constitutional Constitutional: Denies chills and Denies fever(s) Physical Exam 2 Vital Signs: Vital Signs: Last Vital Signs Temp 98.0 F 08/21/24 07:13 Pulse 98 08/21/24 07:13 Resp 18 08/21/24 07:13 BP 172/82 H 08/21/24 07:13 Pulse Ox 93 08/21/24 07:13 O2 Del Method Room Air 08/21/24 07:13 O2 Flow Rate 2 08/20/24 19:40 Oxygen Flow Rate 2 08/18/24 13:11 BMI result Body Mass Index 32.2 Const: General: cooperative, comfortable, no acute distress, alert, awake and Physically active Nutritional Appearance: average body habitus O rientation/consciousness: patient oriented x3 Eyes: Other: right eye blind Resp: Effort & Inspection: normal respiratory effort, able to speak in complete sentences, no respiratory distress and no use of accessory muscles Cardio: Rate: regular rate GI: Inspection: No distended Palpation (GI): Soft to palpation and nontender Neuro: Other: b/l upper extremities seem similar; reporting minimal ability to lift RLE General: patient oriented x3, moves all extremities and CN's II-XI intact bilaterally Extrem: Other: b/l tma Objective Data Active Medications Albuterol Sulfate (Albuterol Sulfate 90 Mcg 8 Gm Inhaler) 2 puff INHALE Q6H PRN PRN Reason: Wheezing Carvedilol (Carvedilol 12.5 Mg Tablet) 12.5 mg PO BID [facility]; Protocol Last Admin: 08/21/24 13:44 Dose: 12.5 mg Documented By: LARRY Diphenhydramine HCl (Diphenhydramine Hcl 50 Mg/Ml Vial) 25 mg IVPUSH Q6H PRN PRN Reason: allergy Last Admin: 08/21/24 12:32 Dose: 25 mg Documented By: LARRY Hydralazine HCl (Hydralazine Hcl 50 Mg Tablet) 50 mg PO TID [facility]; Protocol Last Admin: 08/21/24 13:45 Dose: 50 mg Documented By: LARRY Hydromorphone HCl (Hydromorphone Hcl 0.5 Mg/0.5 Ml Syringe) 0.5 mg IVPUSH Q8H PRN; Protocol PRN Reason: Pain, Severe (Pain Scale 7-10) Last Admin: 08/21/24 09:59 Dose: 0.5 mg Documented By: LARRY Methylprednisolone Sodium Succinate 1,000 mg/ Sodium Chloride 66 mls @ 66 mls/hr IV DAILY [facility] Stop: 08/25/24 16:39 Last Admin: 08/21/24 13:53 Dose: 66 mls/hr Documented By: LARRY Nitroglycerin (Nitroglycerin 0.4 Mg Tab.Subl) 0.4 mg SUBLINGUAL Q5MX3 PRN PRN Reason: Angina Labs 08/18/24 13:27 08/19/24 14:55 Assessment and Plan (1) Multiple sclerosis: Status: Acute Plan 34-year-old female with a PMH significant for?ESRD on HD /, [id number] 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, PAD s/p bilateral TMA, poorly controlled hypertension due to medication noncompliance, chronic hypoxemic respiratory failure on 3-4 L baseline supplemental oxygen, HFrEF, hx of multiple dialysis catheter line infections with bacteremia with MSSA, stenotrophomonas, and Pseudomonas, mood disorder, and chronic pain with opioid seeking behavior who presents to the ED weakness RUE Weakness and slurred speech resolved CT and CTA negative for acute findings MRI ; highly suspicious for inflammatory demyelinating disease (multiple sclerosis), with a likely active demyelinating plaque in the left anterior thalamus measuring 0.9 x 0.7 x 1.0 cm. There is involvement of the central camilla, right cerebellum, and right superior medulla. seen by neurology - concern for MS, rec MRI w/contrast; plan for 5 days of high dose steroids shakila, lyme, sed rate pending as per neuro recommendation pain; prn Dilaudid ESRD on HD / Nephrology consult, follows with [facility] Follow BMP Monitor on telemetry Elevated troponin chronically elevated troponins No signs of ACS Monitor on telemetry [id number]-uhodzvmvf type 2 diabetes With diabetic polyneuropathy/retinopathy Place on sliding scale insulin, diabetic diet HTN Continue carvedilol, hydralazine Chronic hypoxemic respiratory failure Not in acute exacerbation Pt on 3-4 L NC at home currently saturating mid 90s on room air HRrEF Continue carvedilol Treat with dialysis as above Chronic pain with opioid seeking behavior Continue home oxycodone Full Code DVT Prophylaxis: Pneumatic compression Patient will need inpatient stay overnight pending neurology evaluation for possible MS and need to treatment with IV medications Quality Stroke Does the patient have a stroke diagnosis?: No VTE Prior VTE?: No VTE Risk Level:: Medical - moderate - high VTE Device Contraindication: N/A - Device Ordered VTE Drug Contraindication: Treatment Not Indicated
[2024-08-21 16:00] VITALS: BP 192/92; PULSE 86; RESP 19; TEMP 36.3; O2SAT 96
--- NOTE | 2024-08-21 19:09 | PC.NURSE ---
08/19/242219 Patient was administered 0.5mg IV dilaudid by this RN for 10/10 bilateral foot pain. Med was not scanned and saved.
[2024-08-21 19:47] VITALS: BP 175/86; PULSE 83; RESP 20
--- NOTE | 2024-08-21 23:02 | PM.PNNEP ---
Subjective Subjective Date of Service: 08/21/24 Interval history: Seen and examined this morning Follow-up for right-sided weakness, new onset MS right side feels heavy, no slurred speech Physical Exam Vital Signs: Vital Signs: Last Vital Signs Temp 97.3 F 08/21/24 16:00 Pulse 83 08/21/24 19:47 Resp 20 08/21/24 19:47 BP 175/86 H 08/21/24 19:47 Pulse Ox 96 08/21/24 16:00 O2 Del Method Room Air 08/21/24 16:00 O2 Flow Rate 2 08/20/24 19:40 Oxygen Flow Rate 2 08/18/24 13:11 BMI result Body Mass Index 32.2 cvs: s1s2 RS; cta ABd; soft Objective Data Labs 08/18/24 13:27 08/19/24 14:55 Procedures Date of Service Date of Service: 08/21/24 Assessment & Plan Assessment and plan (1) ESRD on dialysis: Status: Acute Plan Shereen Taylor is a 32-year-old female with PMH of ESRD on HD TTS (renal biopsy 2021: Advanced diabetic nephropathy with 70% glomera sclerosis, nodular sclerosis, severe interstitial fibrosis), nonischemic cardiomyopathy, chronic HFpEF EF 40-50%, T2DM, HTN, gastroparesis, asthma, blindness of right eye, and seizure disorder on [facility], admitted for stroke rausch 1. ESRD Patient dialyzes TTS at [facility] via [facility] 2. HTN / Volume Chronically, patient takes Coreg 12.5mg BID, hydralazine 50mg TID, losartan 50mg daily, 3. Nephrogenic Anemia 4. Secondary Hyperparathyroidism / MBD Plan- - TTS inpt - extra treatment today as she cut treatment time yesterday - Continue Coreg 12.5mg BID, hydralazine 50mg TID - transfuse if hb < 7 , venofer and procrit for treatment - velphoro 500mg TID w/ mariia - Renal diet - ok for mri with gadolinium - being worked up for MS flare and now on solumedrol with higher bp's - ok to use hydrlazine additional dose prn Time Spent With Patient Time: Total time managing care of this patient today ____ minutes. Progress Note: Quality Stroke Does the patient have a stroke diagnosis?: No
--- NOTE | 2024-08-21 23:08 | PC.NURSE ---
Pt BLE dressings changed, covered with xeroform, kerlix and CHRISTIAN bandages. Pt refusing night time BP meds. MD notified. Continue to monitor BP.
[2024-08-22] VITALS (9 sets, daily range): BP systolic 125–192; BP diastolic 65–92; PULSE 77–88; RESP 16–18; TEMP 36.3–36.8; O2SAT 92–100
--- NOTE | 2024-08-22 03:25 | PC.NURSE ---
Pt BP elevated at 0300am, pt not allowing staff to recheck manual BP. Pt refusing PRN hydralazine for elevated BP. MD notified, will continue to monitor BP.
[2024-08-22] MEDS: methylPREDNISolone Sod Succ 1,000 MG in 0.9 % Sodium Chloride 50 ML 66 MG IV (09:33)
--- NOTE | 2024-08-22 09:57 | P.PNIM_ITS ---
Subjective Subjective Date of Service: 08/22/24 Interval History: seen and examined this morning follow up for new MS, right side weakness patient refusing to open eyes or answer questions; shaking head to some questions refused labs two days in a row, intermittently refusing bp meds does not offer any specific compalints at this time pt declined physical exam Physical Exam 2 Vital Signs: Vital Signs: Last Vital Signs Temp 97.5 F 08/22/24 07:45 Pulse 84 08/22/24 07:45 Resp 18 08/22/24 07:45 BP 170/70 H 08/22/24 07:45 Pulse Ox 92 08/22/24 07:45 O2 Del Method Room Air 08/22/24 07:45 O2 Flow Rate 2 08/20/24 19:40 Oxygen Flow Rate 2 08/18/24 13:11 BMI result Body Mass Index 32.2 Objective Data Active Medications Albuterol Sulfate (Albuterol Sulfate 90 Mcg 8 Gm Inhaler) 2 puff INHALE Q6H PRN PRN Reason: Wheezing Carvedilol (Carvedilol 12.5 Mg Tablet) 12.5 mg PO BID [facility]; Protocol Last Admin: 08/22/24 09:28 Dose: 12.5 mg Documented By: LARRY Diphenhydramine HCl (Diphenhydramine Hcl 50 Mg/Ml Vial) 25 mg IVPUSH Q6H PRN PRN Reason: allergy Last Admin: 08/22/24 06:29 Dose: 25 mg Documented By: KENJI Hydralazine HCl (Hydralazine Hcl 50 Mg Tablet) 50 mg PO TID [facility]; Protocol Last Admin: 08/22/24 09:28 Dose: 50 mg Documented By: LARRY Hydralazine HCl (Hydralazine Hcl 20 Mg/Ml Vial) 5 mg IVPUSH Q8H PRN; Protocol PRN Reason: SBP >180 Last Admin: 08/21/24 18:22 Dose: 5 mg Documented By: LARRY Hydromorphone HCl (Hydromorphone Hcl 0.5 Mg/0.5 Ml Syringe) 0.5 mg IVPUSH Q8H PRN; Protocol PRN Reason: Pain, Severe (Pain Scale 7-10) Last Admin: 08/22/24 02:21 Dose: 0.5 mg Documented By: NAY-DESCATA Methylprednisolone Sodium Succinate 1,000 mg/ Sodium Chloride 66 mls @ 66 mls/hr IV DAILY [facility] Stop: 08/25/24 16:39 Last Admin: 08/22/24 09:33 Dose: 66 mls/hr Documented By: LARRY Nitroglycerin (Nitroglycerin 0.4 Mg Tab.Subl) 0.4 mg SUBLINGUAL Q5MX3 PRN PRN Reason: Angina Ondansetron HCl (Ondansetron Hcl 4 Mg/2 Ml Vial) 4 mg IVPUSH Q6H PRN PRN Reason: Nausea and Vomiting Last Admin: 08/21/24 22:13 Dose: 4 mg Documented By: KENJI Labs 08/18/24 13:27 08/19/24 14:55 Assessment and Plan (1) Multiple sclerosis: Status: Acute (2) ESRD on dialysis: Status: Acute Plan 34-year-old female with a PMH significant for?ESRD on HD /, [id number] 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, PAD s/p bilateral TMA, poorly controlled hypertension due to medication noncompliance, chronic hypoxemic respiratory failure on 3-4 L baseline supplemental oxygen, HFrEF, hx of multiple dialysis catheter line infections with bacteremia with MSSA, stenotrophomonas, and Pseudomonas, mood disorder, and chronic pain with opioid seeking behavior who presents to the ED weakness RUE Weakness and slurred speech CT and CTA negative for acute findings MRI highly suspicious for inflammatory demyelinating disease (multiple sclerosis), with a likely active demyelinating plaque in the left anterior thalamus measuring 0.9 x 0.7 x 1.0 cm. There is involvement of the central camilla, right cerebellum, and right superior medulla. seen by neurology - concern for MS, rec MRI w/contrast - showing activing MS in left thalamic lesion plan for 5 days of high dose steroids; on day 3/5 shakila, lyme, sed rate as per neuro recommendation -not drawn yet as pt has been declining lab draws pain; prn Dilaudid ESRD on HD //[facility] Nephrology consult, follows with [facility] Follow BMP Monitor on telemetry Elevated troponin chronically elevated troponins No signs of ACS Monitor on telemetry Fpr-ceopavp-blyuwdfda type 2 diabetes With diabetic polyneuropathy/retinopathy Place on sliding scale insulin, diabetic diet HTN bp chronically uncontrolled pt intermittently refuses both po and IV medications Continue carvedilol, hydralazine Chronic hypoxemic respiratory failure Not in acute exacerbation Pt on 3-4 L NC at home? currently saturating mid 90s on room air HRrEF Continue carvedilol Treat with dialysis as above Chronic pain with opioid seeking behavior Continue home oxycodone Full Code DVT Prophylaxis: Pneumatic compression Patient will need inpatient stay overnight pending neurology evaluation for possible MS and need to treatment with IV medications Quality Stroke Does the patient have a stroke diagnosis?: No VTE Prior VTE?: No VTE Risk Level:: Medical - moderate - high VTE Device Contraindication: N/A - Device Ordered VTE Drug Contraindication: Treatment Not Indicated
--- NOTE | 2024-08-22 10:44 | MHC.CM.PN ---
OT is recommending home with services. Patient has refused [facility] multiple times and they are unable to accept Patient after this admission. Additional [facility] referrals have been made to VNAs contracted with Patient's insurance.CM will continue to follow.
[2024-08-22 11:11] LABS: Hematocrit 25.4 % (37.0-47.0); Hemoglobin 8.4 g/dl (12.0-16.0); Mean Corpuscular HGB Conc 33.1 g/dl (31.0-35.0); Mean Corpuscular Hemoglobin 31.7 pg (27.0-33.0); Mean Corpuscular Volume 95.8 fL (80.0-98.0); NRBC Abs Auto 0.000 X10*3/uL (0.0-0.012); NRBC Pct Auto 0.0 /100WBC (0.0-0.2); Platelet Count 138 X10*3/uL (160-400); Red Blood Count 2.65 X10*6/uL (4.20-5.50); White Blood Count 7.1 X10*3/uL (4.8-10.8)
[2024-08-22 13:03] LABS: Anion Gap 18 (12-20); Blood Urea Nitrogen 48 mg/dL (9-16); Calcium 7.0 mg/dL (8.4-10.2); Carbon Dioxide 18 mmol/L (22-29); Chloride 90 mmol/L (96-108); Creatinine Clr Calc Pharmacy 15.2; Estimated Glomerular Filt Rate 8; Potassium 4.4 mmol/L (3.3-5.1); Sodium 122 mmol/L (135-145)
[2024-08-22 13:07] LABS: Glucose, Whole Blood > 600 mg/dL (60-115)
[2024-08-22 14:13] LABS: Glucose, Whole Blood > 600 mg/dL (60-115)
[2024-08-22 15:03] LABS: Glucose, Whole Blood 568 mg/dL (60-115)
[2024-08-22] MEDS: Insulin Glargine,Hum.rec.anlog 100 UNIT/ML 10 ML VIAL 10 UNIT SUBCUT (15:26)
[2024-08-22 16:27] LABS: Glucose, Whole Blood 527 mg/dL (60-115)
[2024-08-22 17:13] LABS: Glucose, Whole Blood 500 mg/dL (60-115)
[2024-08-22 20:59] LABS: Glucose, Whole Blood 371 mg/dL (60-115)
--- NOTE | 2024-08-22 23:35 | P.PNNP_ITS ---
Subjective Subjective Date of Service: 08/22/24 Interval history: new MS, right side weakness- pt tells me she feels better in terms of her symptoms Physical Exam 2 Vital Signs: Vital Signs: Last Vital Signs Temp 97.7 F 08/22/24 20:00 Pulse 77 08/22/24 20:00 Resp 18 08/22/24 20:00 BP 125/75 08/22/24 20:00 Pulse Ox 100 08/22/24 20:00 O2 Del Method Nasal Cannula 08/22/24 20:00 O2 Flow Rate 2 08/22/24 20:00 Oxygen Flow Rate 2 08/18/24 13:11 BMI result Body Mass Index 32.2 cvs: s1s2 RS; cta ABd; soft Objective Data Labs 08/22/24 11:02 08/22/24 12:28 Labs: Laboratory Results - last 24 hr 08/22/24 08/22/24 08/22/24 11:02 12:28 13:04 WBC 7.1 RBC 2.65 L Hgb 8.4 L Hct 25.4 L MCV 95.8 MCH 31.7 MCHC 33.1 RDW 17.1 H Plt Count 138 L MPV 13.0 H Absolute Nucleated RBC 0.000 Nucleated RBC % (auto) 0.0 ESR 77 H Sodium 122 L Potassium 4.4 Chloride 90 L Carbon Dioxide 18 L Anion Gap 18 BUN 48 H Creatinine 5.79 H* Estim Creat Clear Calc 15.2 Estimated GFR 8 POC Glucose > 600 H* Random Glucose 761 H* Calcium 7.0 L D 08/22/24 08/22/24 08/22/24 14:08 15:00 16:19 WBC RBC Hgb Hct MCV MCH MCHC RDW Plt Count MPV Absolute Nucleated RBC Nucleated RBC % (auto) ESR Sodium Potassium Chloride Carbon Dioxide Anion Gap BUN Creatinine Estim Creat Clear Calc Estimated GFR POC Glucose > 600 H* 568 H* 527 H* Random Glucose Calcium 08/22/24 08/22/24 17:09 20:54 WBC RBC Hgb Hct MCV MCH MCHC RDW Plt Count MPV Absolute Nucleated RBC Nucleated RBC % (auto) ESR Sodium Potassium Chloride Carbon Dioxide Anion Gap BUN Creatinine Estim Creat Clear Calc Estimated GFR POC Glucose 500 H* 371 H* Random Glucose Calcium Procedures Date of Service Date of Service: 08/22/24 Assessment & Plan Assessment and plan (1) ESRD on dialysis: Status: Acute Plan Natalis Brandon is a 32-year-old female with PMH of ESRD on HD TTS (renal biopsy 2021: Advanced diabetic nephropathy with 70% glomera sclerosis, nodular sclerosis, severe interstitial fibrosis), nonischemic cardiomyopathy, chronic HFpEF EF 40-50%, T2DM, HTN, gastroparesis, asthma, blindness of right eye, and seizure disorder on Keppra, admitted for stroke rausch 1. ESRD Patient dialyzes TTS at [facility] via [facility] 2. HTN / Volume Chronically, patient takes Coreg 12.5mg BID, hydralazine 50mg TID, losartan 50mg daily, 3. Nephrogenic Anemia 4. Secondary Hyperparathyroidism / MBD Plan- - TTS inpt - - Continue Coreg 12.5mg BID, hydralazine 50mg TID - transfuse if hb < 7 , davin and procrit for treatment - velphoro 500mg TID w/ mariia - Renal diet - MS flare and now on solumedrol with higher bp's and poc sugars - ok to use hydrlazine additional dose prn . consider iv insulin - counselled pt to be compliant with meds Time Spent With Patient Time: Total time managing care of this patient today ____ minutes. Progress Note: Quality Stroke Does the patient have a stroke diagnosis?: No
[2024-08-23] VITALS (7 sets, daily range): BP systolic 134–172; BP diastolic 61–85; PULSE 74–84; RESP 16–20; TEMP 36.4–37.2; O2SAT 98–100
[2024-08-23 07:42] LABS: Glucose, Whole Blood 512 mg/dL (60-115)
[2024-08-23 09:11] LABS: Anion Gap 20 (12-20); Blood Urea Nitrogen 80 mg/dL (9-16); Calcium 7.0 mg/dL (8.4-10.2); Carbon Dioxide 18 mmol/L (22-29); Chloride 91 mmol/L (96-108); Creatinine Clr Calc Pharmacy 12.4; Estimated Glomerular Filt Rate 7; Potassium 5.2 mmol/L (3.3-5.1); Sodium 124 mmol/L (135-145)
--- NOTE | 2024-08-23 11:44 | P.PNIM_ITS ---
Subjective Subjective Date of Service: 08/23/24 Interval History: seen and examined this morning follow up for new MS, uncontrolled blood sugar, uncontrolled blood pressure Continues to intermittently refuse blood pressure medication but has been compliant with blood draws and POCs right hand still feeling clumsy but heaviness improving Review of Systems Review of Systems: Yes all other systems are reviewed and are negative Constitutional Constitutional: Denies chills and Denies fever(s) Cardiovascular Cardiovascular: Denies chest pain Gastrointestinal Gastrointestinal: Denies abdominal pain and Denies vomiting Physical Exam 2 Vital Signs: Vital Signs: Last Vital Signs Temp 97.5 F 08/23/24 07:50 Pulse 74 08/23/24 07:50 Resp 20 08/23/24 07:50 BP 168/83 H 08/23/24 07:50 Pulse Ox 98 08/23/24 07:50 O2 Del Method Nasal Cannula 08/23/24 07:50 O2 Flow Rate 2 08/23/24 07:50 Oxygen Flow Rate 2 08/18/24 13:11 BMI result Body Mass Index 32.2 Const: General: cooperative, comfortable, no acute distress, alert, awake and Physically active Nutritional Appearance: average body habitus O rientation/consciousness: patient oriented x3 Eyes: Other: right eye blind Resp: Effort & Inspection: normal respiratory effort, able to speak in complete sentences, no respiratory distress and no use of accessory muscles Cardio: Rate: regular rate GI: Inspection: No distended Palpation (GI): Soft to palpation and nontender Neuro: General: patient oriented x3, moves all extremities and CN's II-XI intact bilaterally Extrem: Other: b/l tma Objective Data Active Medications Albuterol Sulfate (Albuterol Sulfate 90 Mcg 8 Gm Inhaler) 2 puff INHALE Q6H PRN PRN Reason: Wheezing Carvedilol (Carvedilol 12.5 Mg Tablet) 12.5 mg PO BID [facility]; Protocol Last Admin: 08/22/24 21:03 Dose: Not Given Documented By: MARIE Non-Admin Reason: Patient Refused Dextrose (Dextrose 50 % 25 Gm/50 Ml Syringe) 25 gm IVPUSH Q15M PRN; Protocol PRN Reason: per Hypoglycemia Standing Ord. Diphenhydramine HCl (Diphenhydramine Hcl 50 Mg/Ml Vial) 25 mg IVPUSH Q6H PRN PRN Reason: allergy Last Admin: 08/23/24 08:22 Dose: 25 mg Documented By: CASSIE Glucose (Glucose Gel 15 Gm Gel..Gram.) 15 gm PO Q15M PRN; Protocol PRN Reason: per Hypoglycemia Standing Ord. Hydralazine HCl (Hydralazine Hcl 50 Mg Tablet) 50 mg PO TID [facility]; Protocol Last Admin: 08/22/24 21:04 Dose: Not Given Documented By: MARIE Non-Admin Reason: Patient Refused Hydralazine HCl (Hydralazine Hcl 20 Mg/Ml Vial) 5 mg IVPUSH Q8H PRN; Protocol PRN Reason: SBP >180 Last Admin: 08/22/24 12:38 Dose: 5 mg Documented By: LARRY Hydromorphone HCl (Hydromorphone Hcl 0.5 Mg/0.5 Ml Syringe) 0.5 mg IVPUSH Q6H PRN; Protocol PRN Reason: Pain, Severe (Pain Scale 7-10) Last Admin: 08/23/24 10:37 Dose: 0.5 mg Documented By: CASSIE Methylprednisolone Sodium Succinate 1,000 mg/ Sodium Chloride 66 mls @ 66 mls/hr IV DAILY [facility] Stop: 08/25/24 16:39 Last Infusion: 08/22/24 10:35 Dose: Infused Documented By: LARRY Insulin Glargine (Insulin Glargine,Hum.Rec.Anlog 100 Unit/Ml 10 Ml Vial) 15 unit SUBCUT BEDTIME [facility] Insulin Human Lispro (Insulin Lispro 100 Unit/Ml 3 Ml Vial) 0 unit SUBCUT QIDACHS [facility]; Protocol Last Admin: 08/23/24 08:19 Dose: 10 unit Documented By: CASSIE Insulin Human Lispro (Insulin Lispro 100 Unit/Ml 3 Ml Vial) 5 unit SUBCUT TIDAC [facility] Last Admin: 08/23/24 08:20 Dose: 5 unit Documented By: CASSIE Lidocaine (Lidocaine 4 % Patch Adh..Patch) 1 patch TRANSDERMA DAILY PRN PRN Reason: Pain Nitroglycerin (Nitroglycerin 0.4 Mg Tab.Subl) 0.4 mg SUBLINGUAL Q5MX3 PRN PRN Reason: Angina Ondansetron HCl (Ondansetron Hcl 4 Mg/2 Ml Vial) 4 mg IVPUSH Q6H PRN PRN Reason: Nausea and Vomiting Last Admin: 08/22/24 10:39 Dose: 4 mg Documented By: LARRY Labs 08/22/24 11:02 08/23/24 08:28 Labs: Laboratory Results - last 24 hr 08/22/24 08/22/24 08/22/24 11:02 12:28 13:04 ESR 77 H Anion Gap 18 Estim Creat Clear Calc 15.2 Estimated GFR 8 POC Glucose > 600 H* Random Glucose 761 H* Calcium 7.0 L D 08/22/24 08/22/24 08/22/24 14:08 15:00 16:19 ESR Anion Gap Estim Creat Clear Calc Estimated GFR POC Glucose > 600 H* 568 H* 527 H* Random Glucose Calcium 08/22/24 08/22/24 08/23/24 17:09 20:54 07:38 ESR Anion Gap Estim Creat Clear Calc Estimated GFR POC Glucose 500 H* 371 H* 512 H* Random Glucose Calcium 08/23/24 08:28 ESR Anion Gap 20 Estim Creat Clear Calc 12.4 Estimated GFR 7 POC Glucose Random Glucose 599 H* Calcium 7.0 L Assessment and Plan (1) Multiple sclerosis: Status: Acute Plan 34-year-old female with a PMH significant for?ESRD on HD //[facility], [id number]-[id number] 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, PAD s/p bilateral TMA, poorly controlled hypertension due to medication noncompliance, chronic hypoxemic respiratory failure on 3-4 L baseline supplemental oxygen, HFrEF, hx of multiple dialysis catheter line infections with bacteremia with MSSA, stenotrophomonas, and Pseudomonas, mood disorder, and chronic pain with opioid seeking behavior who presents to the ED weakness RUE Weakness and slurred speech - weakness improving CT and CTA negative for acute findings MRI highly suspicious for inflammatory demyelinating disease (multiple sclerosis), with a likely active demyelinating plaque in the left anterior thalamus measuring 0.9 x 0.7 x 1.0 cm. There is involvement of the central camilla, right cerebellum, and right superior medulla. seen by neurology - concern for MS, rec MRI w/contrast - showing activing MS in left thalamic lesion plan for 5 days of high dose steroids; on day 4/5 shakila, lyme, sed rate as per neuro recommendation -not drawn yet as pt has been declining lab draws pain; prn Dilaudid Dvo-hrfucqy-guhpqcvmd 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 With diabetic polyneuropathy/retinopathy Place on sliding scale insulin, diabetic diet premeal insulin and lantus added follow closely ESRD on HD //[facility] Nephrology consult, follows with [facility] Follow BMP Monitor on telemetry Elevated troponin chronically elevated troponins No signs of ACS Monitor on telemetry HTN bp chronically uncontrolled pt intermittently refuses both po and IV medications Continue carvedilol, hydralazine Chronic hypoxemic respiratory failure Pt on 3-4 L NC at home - uses intermittently HRrEF Continue carvedilol Treat with dialysis as above Chronic pain with opioid seeking behavior prn dilaudid Full Code DVT Prophylaxis: Pneumatic compression Patient will need inpatient stay overnight pending neurology evaluation for possible MS and need to treatment with IV medications Quality Stroke Does the patient have a stroke diagnosis?: No VTE Prior VTE?: No VTE Risk Level:: Medical - moderate - high VTE Device Contraindication: N/A - Device Ordered VTE Drug Contraindication: Treatment Not Indicated
[2024-08-23 11:49] LABS: Glucose, Whole Blood 280 mg/dL (60-115)
[2024-08-23] MEDS: methylPREDNISolone Sod Succ 1,000 MG in 0.9 % Sodium Chloride 50 ML 50 MG IV (12:16)
[2024-08-23 15:47] LABS: Glucose, Whole Blood 345 mg/dL (60-115)
[2024-08-23 20:46] LABS: Glucose, Whole Blood > 600 mg/dL (60-115)
[2024-08-23] MEDS: Insulin Glargine,Hum.rec.anlog 100 UNIT/ML 10 ML VIAL 25 UNIT SUBCUT (21:15)
[2024-08-23 21:16] LABS: Venous Blood Gas Refer to POC result
[2024-08-23 21:17] LABS: VBG HCO3 20 mmol/L (22-26); VBG O2 % Saturation 99.0 %
[2024-08-23 21:34] LABS: Anion Gap 20 (12-20); Blood Urea Nitrogen 60 mg/dL (9-16); Calcium 6.9 mg/dL (8.4-10.2); Carbon Dioxide 20 mmol/L (22-29); Chloride 92 mmol/L (96-108); Creatinine Clr Calc Pharmacy 16.7; Estimated Glomerular Filt Rate 9; Potassium 5.0 mmol/L (3.3-5.1); Sodium 127 mmol/L (135-145)
[2024-08-23 21:49] LABS: Glucose, Whole Blood > 600 mg/dL (60-115)
[2024-08-23 22:36] LABS: Glucose, Whole Blood 517 mg/dL (60-115)
[2024-08-24] VITALS (10 sets, daily range): BP systolic 91–131; BP diastolic 53–70; PULSE 54–92; RESP 16–20; TEMP 36.1–36.8; O2SAT 97–100
[2024-08-24 00:48] LABS: Glucose, Whole Blood 499 mg/dL (60-115)
[2024-08-24 02:57] LABS: Glucose, Whole Blood 573 mg/dL (60-115)
[2024-08-24 07:42] LABS: Glucose, Whole Blood 339 mg/dL (60-115)
[2024-08-24 08:41] LABS: Anion Gap 21 (12-20); Blood Urea Nitrogen 73 mg/dL (9-16); Calcium 6.6 mg/dL (8.4-10.2); Carbon Dioxide 19 mmol/L (22-29); Chloride 93 mmol/L (96-108); Creatinine Clr Calc Pharmacy 15.4; Estimated Glomerular Filt Rate 8; Potassium 4.6 mmol/L (3.3-5.1); Sodium 128 mmol/L (135-145)
[2024-08-24] MEDS: methylPREDNISolone Sod Succ 1,000 MG in 0.9 % Sodium Chloride 50 ML 66 MG IV (09:23)
[2024-08-24 11:42] LABS: Glucose, Whole Blood 330 mg/dL (60-115)
--- NOTE | 2024-08-24 13:07 | P.PNIM_ITS ---
Subjective Subjective Date of Service: 08/24/24 Interval History: Seen and examined this morning Follow-up for new onset MS, hyperglycemia Blood sugar high overnight, received IV insulin, a.m. sugar improving Review of Systems Review of Systems: Yes all other systems are reviewed and are negative Constitutional Constitutional: Denies chills and Denies fever(s) Cardiovascular Cardiovascular: Denies chest pain, Denies palpitations and Denies dyspnea Respiratory Respiratory: Denies cough and Denies dyspnea Gastrointestinal Gastrointestinal: Denies abdominal pain Endocrine Endocrine: Denies palpitations Physical Exam 2 Vital Signs: Vital Signs: Last Vital Signs Temp 97.9 F 08/24/24 11:38 Pulse 71 08/24/24 11:38 Resp 20 08/24/24 11:38 BP 109/53 L 08/24/24 11:38 Pulse Ox 100 08/24/24 11:38 O2 Del Method Nasal Cannula 08/24/24 11:38 O2 Flow Rate 3 08/24/24 11:38 Oxygen Flow Rate 2 08/18/24 13:11 BMI result Body Mass Index 32.2 Const: General: cooperative, comfortable, no acute distress, alert, awake and Physically active Nutritional Appearance: average body habitus O rientation/consciousness: patient oriented x3 Eyes: Other: right eye blind Resp: Effort & Inspection: normal respiratory effort, able to speak in complete sentences, no respiratory distress and no use of accessory muscles Cardio: Rate: regular rate GI: Inspection: No distended Palpation (GI): Soft to palpation and nontender Neuro: General: patient oriented x3, moves all extremities and CN's II-XI intact bilaterally Extrem: Other: b/l tma Objective Data Active Medications Albuterol Sulfate (Albuterol Sulfate 90 Mcg 8 Gm Inhaler) 2 puff INHALE Q6H PRN PRN Reason: Wheezing Carvedilol (Carvedilol 12.5 Mg Tablet) 12.5 mg PO BID [facility]; Protocol Last Admin: 08/24/24 09:21 Dose: 12.5 mg Documented By: CASSIE Dextrose (Dextrose 50 % 25 Gm/50 Ml Syringe) 25 gm IVPUSH Q15M PRN; Protocol PRN Reason: per Hypoglycemia Standing Ord. Diphenhydramine HCl (Diphenhydramine Hcl 50 Mg/Ml Vial) 25 mg IVPUSH Q6H PRN PRN Reason: allergy Last Admin: 08/24/24 09:21 Dose: 25 mg Documented By: CASSIE Glucose (Glucose Gel 15 Gm Gel..Gram.) 15 gm PO Q15M PRN; Protocol PRN Reason: per Hypoglycemia Standing Ord. Hydralazine HCl (Hydralazine Hcl 50 Mg Tablet) 50 mg PO TID [facility]; Protocol Last Admin: 08/24/24 09:23 Dose: 50 mg Documented By: CASSIE Hydralazine HCl (Hydralazine Hcl 20 Mg/Ml Vial) 5 mg IVPUSH Q8H PRN; Protocol PRN Reason: SBP >180 Last Admin: 08/22/24 12:38 Dose: 5 mg Documented By: LARRY Hydromorphone HCl (Hydromorphone Hcl 0.5 Mg/0.5 Ml Syringe) 0.5 mg IVPUSH Q6H PRN; Protocol PRN Reason: Pain, Severe (Pain Scale 7-10) Last Admin: 08/24/24 06:52 Dose: 0.5 mg Documented By: DENNIS Methylprednisolone Sodium Succinate 1,000 mg/ Sodium Chloride 66 mls @ 66 mls/hr IV DAILY [facility] Stop: 08/25/24 16:39 Last Infusion: 08/24/24 10:25 Dose: Infused Documented By: CASSIE Insulin Glargine (Insulin Glargine,Hum.Rec.Anlog 100 Unit/Ml 10 Ml Vial) 25 unit SUBCUT BEDTIME [facility] Last Admin: 08/23/24 21:15 Dose: 25 unit Documented By: DENNIS Insulin Human Lispro (Insulin Lispro 100 Unit/Ml 3 Ml Vial) 5 unit SUBCUT QIDACHS [facility] Last Admin: 08/24/24 11:58 Dose: 5 unit Documented By: CASSIE Insulin Human Lispro (Insulin Lispro 100 Unit/Ml 3 Ml Vial) 0 unit SUBCUT QIDACHS [facility]; Protocol Last Admin: 08/24/24 11:58 Dose: 10 unit Documented By: CASSIE Lidocaine (Lidocaine 4 % Patch Adh..Patch) 1 patch TRANSDERMA DAILY PRN PRN Reason: Pain Nitroglycerin (Nitroglycerin 0.4 Mg Tab.Subl) 0.4 mg SUBLINGUAL Q5MX3 PRN PRN Reason: Angina Ondansetron HCl (Ondansetron Hcl 4 Mg/2 Ml Vial) 4 mg IVPUSH Q6H PRN PRN Reason: Nausea and Vomiting Last Admin: 08/23/24 21:06 Dose: 4 mg Documented By: DENNIS Labs 08/22/24 11:02 08/24/24 06:20 Labs: Laboratory Results - last 24 hr 08/23/24 08/23/24 08/23/24 15:36 20:41 21:07 Hold Purple Top VBG pH VBG pCO2 VBG pO2 VBG HCO3 VBG O2 Saturation VBG Base Excess Anion Gap 20 Estim Creat Clear Calc 16.7 Estimated GFR 9 POC Glucose 345 H > 600 H* Random Glucose 725 H* Calcium 6.9 L Beta-Hydroxybutyrate 0.07 08/23/24 08/23/24 08/23/24 21:13 21:45 22:32 Hold Purple Top VBG pH 7.44 H VBG pCO2 29 VBG pO2 193 VBG HCO3 20 L VBG O2 Saturation 99.0 VBG Base Excess -2.6 Anion Gap Estim Creat Clear Calc Estimated GFR POC Glucose > 600 H* 517 H* Random Glucose Calcium Beta-Hydroxybutyrate 08/24/24 08/24/24 08/24/24 00:44 02:50 06:20 Hold Purple Top SEE NOTE VBG pH VBG pCO2 VBG pO2 VBG HCO3 VBG O2 Saturation VBG Base Excess Anion Gap 21 H Estim Creat Clear Calc 15.4 Estimated GFR 8 POC Glucose 499 H* 573 H* Random Glucose 375 H* Calcium 6.6 L Beta-Hydroxybutyrate 08/24/24 08/24/24 07:35 11:37 Hold Purple Top VBG pH VBG pCO2 VBG pO2 VBG HCO3 VBG O2 Saturation VBG Base Excess Anion Gap Estim Creat Clear Calc Estimated GFR POC Glucose 339 H 330 H Random Glucose Calcium Beta-Hydroxybutyrate Assessment and Plan (1) Diabetes: Status: Acute (2) ESRD on dialysis: Status: Acute (3) Multiple sclerosis: Status: Acute Plan 34-year-old female with a PMH significant for?ESRD on HD //[facility], [id number] 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, PAD s/p bilateral TMA, poorly controlled hypertension due to medication noncompliance, chronic hypoxemic respiratory failure on 3-4 L baseline supplemental oxygen, HFrEF, hx of multiple dialysis catheter line infections with bacteremia with MSSA, stenotrophomonas, and Pseudomonas, mood disorder, and chronic pain with opioid seeking behavior who presents to the ED weakness RUE Weakness and slurred speech - weakness improving CT and CTA negative for acute findings MRI highly suspicious for inflammatory demyelinating disease (multiple sclerosis), with a likely active demyelinating plaque in the left anterior thalamus measuring 0.9 x 0.7 x 1.0 cm. There is involvement of the central camilla, right cerebellum, and right superior medulla. 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 With diabetic polyneuropathy/retinopathy Place on sliding scale insulin, diabetic diet premeal insulin and lantus added, lantus titrated follow closely ESRD on HD //[facility] Nephrology consult, follows with [facility] Follow BMP Monitor on telemetry Elevated troponin chronically elevated troponins No signs of ACS Monitor on telemetry HTN bp chronically uncontrolled pt intermittently refuses both po and IV medications Continue carvedilol, hydralazine Chronic hypoxemic respiratory failure Pt on 3-4 L NC at home - uses intermittently HRrEF Continue carvedilol Treat with dialysis as above Chronic pain with opioid seeking behavior prn dilaudid Full Code DVT Prophylaxis: Pneumatic compression PT eval pending Patient will need inpatient stay overnight pending neurology evaluation for possible MS and need to treatment with IV medications Quality Stroke Does the patient have a stroke diagnosis?: No VTE Prior VTE?: No VTE Risk Level:: Medical - moderate - high VTE Device Contraindication: N/A - Device Ordered VTE Drug Contraindication: Treatment Not Indicated
[2024-08-24 16:05] LABS: Glucose, Whole Blood 262 mg/dL (60-115)
[2024-08-24] MEDS: Insulin Glargine,Hum.rec.anlog 100 UNIT/ML 10 ML VIAL 25 UNIT SUBCUT (20:08)
[2024-08-24 20:28] LABS: Glucose, Whole Blood 321 mg/dL (60-115)
[2024-08-25 03:58] VITALS: BP 110/57; PULSE 66; RESP 18; TEMP 36.3; O2SAT 100
[2024-08-25 07:40] LABS: Glucose, Whole Blood 332 mg/dL (60-115)
[2024-08-25 07:52] VITALS: BP 107/61; PULSE 68; RESP 18; TEMP 36.6; O2SAT 100
[2024-08-25 10:50] LABS: Anti Nuclear Antibody Screen NEGATIVE (NEGATIVE)
--- NOTE | 2024-08-25 11:32 | P.PNIM_ITS ---
Subjective Subjective Date of Service: 08/25/24 Interval History: Seen and examined this morning Follow-up for new MS Overall right-sided weakness improved, speech clear, blood sugar improving but remains elevated Constitutional Constitutional: Denies chills and Denies fever(s) Physical Exam 2 Vital Signs: Vital Signs: Last Vital Signs Temp 97.8 F 08/25/24 07:52 Pulse 68 08/25/24 07:52 Resp 18 08/25/24 07:52 BP 107/61 08/25/24 07:52 Pulse Ox 100 08/25/24 07:52 O2 Del Method Nasal Cannula 08/25/24 03:58 O2 Flow Rate 3 08/25/24 07:52 Oxygen Flow Rate 2 08/18/24 13:11 BMI result Body Mass Index 32.2 Const: General: cooperative, comfortable, no acute distress, alert, awake and Physically active Nutritional Appearance: average body habitus O rientation/consciousness: patient oriented x3 Eyes: Other: right eye blind Resp: Effort & Inspection: normal respiratory effort, able to speak in complete sentences, no respiratory distress and no use of accessory muscles Cardio: Rate: regular rate GI: Inspection: No distended Palpation (GI): Soft to palpation and nontender Neuro: Other: speech clear improvement in right side weakness General: patient oriented x3, moves all extremities and CN's II-XI intact bilaterally Extrem: Other: b/l tma Objective Data Active Medications Albuterol Sulfate (Albuterol Sulfate 90 Mcg 8 Gm Inhaler) 2 puff INHALE Q6H PRN PRN Reason: Wheezing Carvedilol (Carvedilol 12.5 Mg Tablet) 12.5 mg PO BID [facility]; Protocol Last Admin: 08/25/24 08:22 Dose: Not Given Documented By: LARRY Non-Admin Reason: Patient Refused Dextrose (Dextrose 50 % 25 Gm/50 Ml Syringe) 25 gm IVPUSH Q15M PRN; Protocol PRN Reason: per Hypoglycemia Standing Ord. Diphenhydramine HCl (Diphenhydramine Hcl 50 Mg/Ml Vial) 25 mg IVPUSH Q6H PRN PRN Reason: allergy Last Admin: 08/25/24 11:15 Dose: 25 mg Documented By: LARRY Glucose (Glucose Gel 15 Gm Gel..Gram.) 15 gm PO Q15M PRN; Protocol PRN Reason: per Hypoglycemia Standing Ord. Hydralazine HCl (Hydralazine Hcl 50 Mg Tablet) 50 mg PO TID [facility]; Protocol Last Admin: 08/25/24 08:22 Dose: Not Given Documented By: LARRY Non-Admin Reason: Patient Refused Hydralazine HCl (Hydralazine Hcl 20 Mg/Ml Vial) 5 mg IVPUSH Q8H PRN; Protocol PRN Reason: SBP >180 Last Admin: 08/22/24 12:38 Dose: 5 mg Documented By: LARRY Hydromorphone HCl (Hydromorphone Hcl 0.5 Mg/0.5 Ml Syringe) 0.5 mg IVPUSH Q6H PRN; Protocol PRN Reason: Pain, Severe (Pain Scale 7-10) Last Admin: 08/25/24 09:15 Dose: 0.5 mg Documented By: LARRY Insulin Glargine (Insulin Glargine,Hum.Rec.Anlog 100 Unit/Ml 10 Ml Vial) 25 unit SUBCUT BEDTIME [facility] Last Admin: 08/24/24 20:08 Dose: 25 unit Documented By: NAY-JUAN MANUEL Insulin Human Lispro (Insulin Lispro 100 Unit/Ml 3 Ml Vial) 5 unit SUBCUT QIDACHS [facility] Last Admin: 08/25/24 08:19 Dose: 5 unit Documented By: LARRY Insulin Human Lispro (Insulin Lispro 100 Unit/Ml 3 Ml Vial) 0 unit SUBCUT QIDACHS [facility]; Protocol Last Admin: 08/25/24 08:20 Dose: 10 unit Documented By: LARRY Lidocaine (Lidocaine 4 % Patch Adh..Patch) 1 patch TRANSDERMA DAILY PRN PRN Reason: Pain Nitroglycerin (Nitroglycerin 0.4 Mg Tab.Subl) 0.4 mg SUBLINGUAL Q5MX3 PRN PRN Reason: Angina Ondansetron HCl (Ondansetron Hcl 4 Mg/2 Ml Vial) 4 mg IVPUSH Q6H PRN PRN Reason: Nausea and Vomiting Last Admin: 08/25/24 11:15 Dose: 4 mg Documented By: LARRY Polyethylene Glycol (Polyethylene Glycol 3350 17 Gm Powd.Pack) 17 gm PO DAILY [facility] Last Admin: 08/25/24 08:21 Dose: Not Given Documented By: LARRY Non-Admin Reason: Patient Refused Senna (Sennosides 8.6 Mg Tablet) 17.2 mg PO BEDTIME PRN PRN Reason: Constipation Labs 08/22/24 11:02 08/24/24 06:20 Labs: Laboratory Results - last 24 hr 08/22/24 08/24/24 08/24/24 11:02 11:37 15:56 POC Glucose 330 H 262 H SHAKILA Screen NEGATIVE 08/24/24 08/25/24 19:54 07:31 POC Glucose 321 H 332 H SAHKILA Screen Assessment and Plan (1) Multiple sclerosis: Status: Acute Plan 34-year-old female with a PMH significant for?ESRD on HD /, [id number] 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, PAD s/p bilateral TMA, poorly controlled hypertension due to medication noncompliance, chronic hypoxemic respiratory failure on 3-4 L baseline supplemental oxygen, HFrEF, hx of multiple dialysis catheter line infections with bacteremia with MSSA, stenotrophomonas, and Pseudomonas, mood disorder, and chronic pain with opioid seeking behavior who presents to the ED weakness RUE Weakness and slurred speech - weakness improving CT and CTA negative for acute findings MRI highly suspicious for inflammatory demyelinating disease (multiple sclerosis), with a likely active demyelinating plaque in the left anterior thalamus measuring 0.9 x 0.7 x 1.0 cm. There is involvement of the central camilla, right cerebellum, and right superior medulla. 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 May need to be discharged home with sliding premeal insulin and lantus added, lantus titrated follow closely ESRD on HD / Nephrology consult, follows with [facility] Follow BMP Monitor on telemetry Plan for hemodialysis 08/26 Elevated troponin chronically elevated troponins No signs of ACS Monitor on telemetry HTN bp chronically uncontrolled pt intermittently refuses both po and IV medications Continue carvedilol, hydralazine Chronic hypoxemic respiratory failure Pt on 3-4 L NC at home - uses intermittently HRrEF Continue carvedilol Treat with dialysis as above Chronic pain with opioid seeking behavior prn dilaudid Full Code DVT Prophylaxis: Pneumatic compression PT eval pending Patient will need inpatient stay overnight pending neurology evaluation for possible MS and need to treatment with IV medications Quality Stroke Does the patient have a stroke diagnosis?: No VTE Prior VTE?: No VTE Risk Level:: Medical - moderate - high VTE Device Contraindication: N/A - Device Ordered VTE Drug Contraindication: Treatment Not Indicated
[2024-08-25 11:38] LABS: Glucose, Whole Blood 503 mg/dL (60-115)
[2024-08-25 11:43] VITALS: BP 129/70; PULSE 81; RESP 18; TEMP 36.2; O2SAT 99
--- NOTE | 2024-08-25 11:45 | MHC.CM.PN ---
Addendum entered by Ksenia Villafuerte RN 08/25/24 15:08: Booking ID #[id number] for 08/26 1:30pm trip Original Note: EMR REVIEWED, PT W/MISSED HD AND NEW DX OF MS, PT DECLINING DC TODAY AND REPORTING DR. DE LA ROSA AND THEN THE KIDNEY DOCTOR SAID SHE WOULD DC AFTER DIALYISIS TOMORROW, PT ALSO DECLINING [facility], HOSPITALIST AWARE AND CM WILL PREBOOK PT FOR 1:30PM TOMORROW, CM WILL CONT TO FOLLOW DC NEEDS.
[2024-08-25 16:00] VITALS: BP 126/64; PULSE 82; RESP 18; TEMP 36.4; O2SAT 96
[2024-08-25 16:22] LABS: Glucose, Whole Blood 435 mg/dL (60-115)
--- NOTE | 2024-08-25 16:34 | HO.WOUND ---
Wound Consult: Initial 34yr old [place] admitted [place] [facility] [place] - See progress notes and H&P for detailed history.? 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 Wound consult follow up for Bilateral lower foot wounds.? Todays assessment is detailed below. ?? Left Heel? - Diabetic Wound - healing - almost fully resurfaced tissue - Skin prep applied no topical recommendations applied. Left lateral foot small resurfacing wound bed - Iodoflex applied. Left Plantar Diabetic Wound? - chronic open wound - no sough noted - No fluctuance no induration no warmth noted - Iodoflex applied. Left Medial Foot with pigmentaiton changes noted. No topical care needed at this time. Off load pressure and skin prep applied. Right Plantar Diabetic Wound? -open chronic wound bed - dry black dark epidermal layer noted. no induration no fluctance no odor noted - Iodoflex applied. Right Dorsal Diabetic Wound? - open partial thickness tissue loss - serosang drainage noted No induraiton no fluctance and no warmth noted - Iodoflex applied. Recommendations: 1. Turn and Reposition every 2 hours and as needed for patient comfort.? Use pillows or wedges to support off loading positions. 2. Off Load all bony prominences with use of pillows and heel boots if needed.? Apply Preventative foams where needed. ? 3. Monitor for incontinence and moisture control, use barrier creams when needed for prevention and treatment. 4. Provide adequate and supplemental nutrition.? 5. Order low air loss mattress. 6. When applicable maintain blood glucose levels per Providers order. Left foot and Right Foot open wounds - Elevate heels off of bed surface with pillows.? Cleanse with saline, pat dry. ?Apply Iodosorb / Iodoflex to wound bed cover with gauze, wrap and tape. ?Change every other day.?? Iodoflex left at bedside. Note the Iodoflex will be applied brown and over the course of time as the Iodine is absorbed into the wound bed the color will change to yellow / cream signifying time to replace.?? Iodoflex / Iodosorb is only available from wound care nurse. At time of discharge patient should switch to Durafiber to the wound bed and change every other day as well. Re-consult wound care Nurse for wound deterioration or wound changes.
[2024-08-25 20:38] LABS: Glucose, Whole Blood 293 mg/dL (60-115)
[2024-08-25 23:20] VITALS: BP 156/79; PULSE 79; RESP 20; TEMP 36.8; O2SAT 98
[2024-08-26] MEDS: Insulin Glargine,Hum.rec.anlog 100 UNIT/ML 10 ML VIAL 25 UNIT SUBCUT (00:17)
[2024-08-26 03:15] VITALS: BP 111/56; PULSE 73; RESP 18; TEMP 36.4; O2SAT 98
[2024-08-26 03:19] LABS: Lyme Blot 4.53 index
[2024-08-26 07:15] LABS: Glucose, Whole Blood 211 mg/dL (60-115)
[2024-08-26 07:31] VITALS: BP 131/75; PULSE 73; RESP 20; TEMP 36.2; O2SAT 99
--- NOTE | 2024-08-26 08:26 | P.DS_ITS ---
DS: Providers Provider Date of Service: 08/25/24 <JOVON Giron - Last Filed: 08/25/24 11:32> Date of admission: 08/18/24 16:22 <JOVON Giron - Last Filed: 08/25/24 11:32> Date of discharge: 08/25/24 <JOVON Giron - Last Filed: 08/25/24 11:32> Primary care physician: Genevieve Casillas MD <JOVON Giron - Last Filed: 08/25/24 11:32> Consults: 08/19/24 07:56 Consult to Neurology Routine Consulting Provider: [facility] Reason for consultation: weakness, slurred speech 08/19/24 12:32 Consult to Nephrology Routine Consulting Provider: [facility] Reason for consultation: esrd on dialysis 08/23/24 01:02 Consult to Wound Care Routine Reason for consultation: bilateral diabetic foot ulcers <JOVON Giron - Last Filed: 08/25/24 11:32> Attending physician on discharge: Efraín Weeks <JOVON Giron - Last Filed: 08/25/24 11:32> Discharging clinician: Angela Ulloa <JOVON Giron - Last Filed: 08/25/24 11:32> DS: Diagnosis Discharge Diagnosis (1) Diabetes: Status: Acute <JOVON Giron - Last Filed: 08/25/24 11:32> (2) ESRD on dialysis: Status: Acute <JOVON Giron - Last Filed: 08/25/24 11:32> (3) Multiple sclerosis: Status: Acute <JOVON Giron - Last Filed: 08/25/24 11:32> DS: Summary Hospital Course Hospital Course: From H&P on the day of admission 34-year-old female with complex underlying medical history ESRD on HD, HTN, anemia, diabetic foot, DM, HFrEF, gastroparesis, blindness noncompliance with renal dialysis Sunday, cardiomyopathy, patient presented by EMS as a stroke protocol, patient has been complaining of right-sided weakness since last night, slurred speech for 2 days now. Patient is complaining of generalized body ache. Patient is not taking anticoagulation. In the emergency department, patient sustaining right side weakness and pain, able to move the right upper extremity with pronator drift arm is heavy and painful, and slurred speech that is noticed to be improving while she is in the ED. RUE Weakness and slurred speech - weakness improving CT and CTA negative for acute findings. MRI without contrast highly suspicious for inflammatory demyelinating disease (multiple sclerosis), with a likely active demyelinating plaque in the left anterior thalamus measuring 0.9 x 0.7 x 1.0 cm. There is involvement of the central camilla, right cerebellum, and right superior medulla. seen by neurology who recommended MRI w/contrast which sh owing active MS in left thalamic lesion. She was treated with 5 days of high- dose steroids. Slurred speech has resolved, has some residual RUE weakness although it has improved. Seen by PT who recommends home with services. Lyme and MUNA pending at the time of discharge. 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 At baseline patient does not take medication for diabetes and has not indeterminate hypoglycemia. However while high-dose steroids her blood sugar was significantly elevated and she was started on Lantus and sliding scale to control blood sugar. No evidence of DKA. Patient Frequently refuses lab work and point of cares making management difficult. She refused BMP on the day of discharge. Overall blood sugars are improving and anticipate sugars will improve now that she is off high-dose steroids. will discharge home with insulin sliding scale ESRD on HD //[facility] consult, follows with RONNIE. Continue outpatient dialysis as scan Elevated troponin chronically elevated troponins. No signs of ACS HTN bp chronically uncontrolled pt intermittently refuses both po and IV medications. Continue carvedilol, hydralazine <JOVON Giron - Last Filed: 08/25/24 11:32> Time Attestation Discharge Coordination Time (in mins): 36 <JOVON Giron - Last Filed: 08/25/24 11:32> Quality: Safe Use of Opioids Does Pt have an Active Cancer Diagnosis on the Problem List?: No <JOVON Giron Last Filed: 08/25/24 11:32> Quality: Stroke Does the patient have a stroke diagnosis?: No <JOVON Giron - Last Filed: 08/25/24 11:32> Physical Exam Vital Signs: Vital Signs: Last Vital Signs Temp 97.8 F 08/25/24 07:52 Pulse 68 08/25/24 07:52 Resp 18 08/25/24 07:52 BP 107/61 08/25/24 07:52 Pulse Ox 100 08/25/24 07:52 O2 Del Method Nasal Cannula 08/25/24 03:58 O2 Flow Rate 3 08/25/24 07:52 Oxygen Flow Rate 2 08/18/24 13:11 BMI result Body Mass Index 32.2 <JOVON Giron - Last Filed: 08/25/24 11:32> Vital Signs: Selected Entries 08/26/24 07:31 Temperature 97.1 F Pulse Rate 73 Respiratory Rate 20 Blood Pressure 131/75 Pulse Oximetry 99 Oxygen Delivery Me thod Nasal Cannula Oxygen Flow Rate 3 <Contreras Blanton MD - Last Filed: 08/26/24 12:24> Const: General: cooperative, comfortable, no acute distress, alert, awake and Physically active <JOVON Giron - Last Filed: 08/25/24 11:32> Nutritional Appearance: average body habitus <JOVON Giron - Last Filed: 08/25/24 11:32> Orientation/consciousness: patient oriented x3 <JOVON Giron - Last Filed: 08/25/24 11:32> Eyes: Other: right eye blind <JOVON Giron - Last Filed: 08/25/24 11:32> Resp: Effort & Inspection: normal respiratory effort, able to speak in complete sentences, no respiratory distress and no use of accessory muscles <JOVON Giron - Last Filed: 08/25/24 11:32> Cardio: Rate: regular rate <JOVON Giron - Last Filed: 08/25/24 11:32> GI: Inspection: No distended <JOVON Giron - Last Filed: 08/25/24 11:32> Palpation (GI): Soft to palpation and nontender <JOVON Giron - Last Filed: 08/25/24 11:32> Neuro: Other: speech clear improvement in right side weakness <JOVON Giron Last Filed: 08/25/24 11:32> General: patient oriented x3, moves all extremities and CN's II-XI intact bilaterally <JOVON Giron - Last Filed: 08/25/24 11:32> Extrem: Other: b/l tma <JOVON Giron - Last Filed: 08/25/24 11:32> DS: Data Data Completed and Pending Completed studies during hospitalization [Text1]: Procedures Detachment at Left 2nd Toe, Complete, Open Approach (09/08/23) Detachment at Left 3rd Toe, Complete, Open Approach (09/08/23) Detachment at Left 4th Toe, Complete, Open Approach (09/08/23) Detachment at Right Foot, Partial 1st Ray, Open Approach (03/01/20) Detachment at Right Foot, Partial 2nd Ray, Open Approach (03/01/20) Detachment at Right Foot, Partial 3rd Ray, Open Approach (03/01/20) Detachment at Right Foot, Partial 4th Ray, Open Approach (03/01/20) Detachment at Right Foot, Partial 5th Ray, Open Approach (03/01/20) Drainage of Right Pleural Cavity, Percutaneous Approach (01/14/21) Excision of Left Foot Muscle, Open Approach (01/14/24) Excision of Left Foot Skin, External Approach (10/08/23) Excision of Left Foot Subcutaneous Tissue and Fascia, Open Approach (07/31/24) Excision of Right Foot Skin, External Approach (07/31/24) Excision of Stomach, Pylorus, Via Natural or Artificial Opening Endoscopic, Diagnostic (08/27/22) Fluoroscopy of Superior Vena Cava, Guidance (08/14/22) Insertion of Endotracheal Airway into Trachea, Via Natural or Artificial Opening (11/10/23) Insertion of Infusion Device into Right Atrium, Percutaneous Approach (02/25/24) Insertion of Infusion Device into Superior Vena Cava, Percutaneous Approach (05/25/24) Insertion of Infusion Device into Upper Vein, Percutaneous Approach (01/14/24) Insertion of Tunneled Vascular Access Device into Chest Subcutaneous Tissue and Fascia, Percutaneous Approach (05/25/24) Introduction of Vasopressor into Peripheral Vein, Percutaneous Approach (11/10/23) Isolation (11/10/23) Performance of Urinary Filtration, Intermittent, Less than 6 Hours Per Day (07/31/24) Removal of Infusion Device from Great Vessel, External Approach (01/14/21) Removal of Infusion Device from Great Vessel, Percutaneous Approach (05/25/24) Removal of Infusion Device from Heart, External Approach (01/14/24) Removal of Tunneled Vascular Access Device from Trunk Subcutaneous Tissue and Fascia, Open Approach (05/25/24) Respiratory Ventilation, Greater than 96 Consecutive Hours (11/10/23) Transfusion of Nonautologous Red Blood Cells into Peripheral Vein, Percutaneous Approach (11/10/23) Ultrasonography of Superior Vena Cava, Guidance (02/25/24) <JOVON Giron - Last Filed: 08/25/24 11:32> Labs on day of discharge: Laboratory Results - last 24 hr 08/22/24 08/24/24 08/24/24 11:02 11:37 15:56 POC Glucose 330 H 262 H MUNA Screen NEGATIVE 08/24/24 08/25/24 19:54 07:31 POC Glucose 321 H 332 H MUNA Screen <JOVON Giron - Last Filed: 08/25/24 11:32> Discharge Plan Discharge Anticipated Discharge Date/Time: 08/25/24 11:25 <JOVON Giron - Last Filed: 08/25/24 11:32> Patient Disposition: Home, Self-Care <JOVON Giron - Last Filed: 08/25/24 11:32> Discharge Diagnosis: New diagnosis of multiple sclerosis Diabetes with hyperglycemia Uncontrolled hypertension ESRD on hemodialysis <JOVON Giron - Last Filed: 08/25/24 11:32> New diagnosis of multiple sclerosis Diabetes with hyperglycemia Uncontrolled hypertension ESRD on hemodialysis <Contreras Blanton MD - Last Filed: 08/26/24 12:24> Referrals: [facility] [Provider Group] - 1 Week Referral Note: new diagnosis of MS Genevieve Gtz MD [Primary Care Provider, Internal Medicine] - 1 Week <JOVON Giron - Last Filed: 08/25/24 11:32> Discharge Medications: New (DME) FreeStyle Lite Strips Strip Qty: 100 0RF Rx Instructions: Test four times a day or as directed. (DME) blood-glucose meter [FreeStyle Lite Meter] Kit Qty: 1 0RF Rx Instructions: As Directed alcohol swabs Pads, Medicated 1 pad TOPICAL QIDACHS Qty: 100 0RF Rx Instructions: Use four times a day or as directed. insulin lispro [Humalog KwikPen Insulin] 100 unit/mL insulin pen 0 sliding scale dose SUBCUT QIDACHS Qty: 15 0RF Rx Instructions: Blood Sugar: <150 - 0 units 151-200 - 2 units 201-250 - 4 units 251-300 - 6 units 301-350 - 8 units >350 - 10 units (DME) pen needle, diabetic 32 gauge x 1/4 needle Qty: 100 0RF Rx Instructions: Use four times a day or as directed. (DME) lancets [FreeStyle Lancets] 28 gauge misc Qty: 100 0RF Rx Instructions: Test four times a day or as directed. Continued carvedilol 12.5 mg Tablet 12.5 mg PO BID 90 Days Qty: 180 0RF Protocol: Hold for SBP/HR < HOLD for SBP < : 90 HOLD for HR < : 60 hydralazine 50 mg Tablet 50 mg PO TID 90 Days Qty: 270 0RF Protocol: Hold for SBP< HOLD for SBP < : 90 acetaminophen 325 mg tablet 650 mg PO Q4H PRN (Reason: mild pain) lidocaine 5 % adhesive patch,medicated 1 patch topical DAILY PRN (Reason: Pain) nitroglycerin 0.4 mg tablet, sublingual 0.4 mg sublingual DIRECTED PRN (Reason: Angina) albuterol sulfate [Ventolin HFA] 90 mcg/actuation HFA aerosol inhaler 2 puff inhalation Q6H PRN (Reason: wheezing) calcium carbonate [Tums] 200 mg calcium (500 mg) Tablet,Chewable 200 mg PO TIDWM PRN (Reason: Acid Reflux) ondansetron 4 mg tablet,disintegrating 4 mg PO Q8H PRN (Reason: nausea and vomiting) Qty: 12 0RF <JOVON Giron - Last Filed: 08/25/24 11:32> Discharge Orders: Discharge Order (Routine); Ordered 08/26/24 Ordered By: Contreras Blanton <JOVON Giron - Last Filed: 08/25/24 11:32> Activity on Discharge: As tolerated <JOVON Giron - Last Filed: 08/25/24 11:32> As tolerated <Contreras Blanton MD - Last Filed: 08/26/24 12:24> Stand Alone Forms: Patient Portal Discharge page <JOVON Giron - Last Filed: 08/25/24 11:32> Print Language: Setswana <JOVON Giron - Last Filed: 08/25/24 11:32> Care Plan Goals: Stable <JOVON Giron - Last Filed: 08/25/24 11:32> Health Concerns: New diagnosis of multiple sclerosis Diabetes with hyperglycemia Uncontrolled hypertension ESRD on hemodialysis <JOVON Giron - Last Filed: 08/25/24 11:32> Plan of Treatment: Call to schedule a follow-up appointment at the [facility] Center at [facility] for further care of your multiple sclerosis Take all medications as prescribed Use sliding scale insulin for blood sugar control. Call to schedule follow-up appointment with PCP Physical therapy has recommended home with services and we have also recommeded VNA services for assistance and management with uncontrolled blood sugar - you have declined both services. <JOVON Giron - Last Filed: 08/25/24 11:32> Assessment: See discharge <JOVON Giron - Last Filed: 08/25/24 11:32>
--- NOTE | 2024-08-26 11:19 | MHC.CM.PN ---
PT DISCHARGING HOME AFTER HD, PT WILL HAVE NEW INSULIN WHICH WILL BE FILLED AT [facility], PT REPORTS HER SISTER HAS ASSISTED HER W/INSULIN IN PAST AND CAN AGAIN, PT CONT'S TO DECLINE VNA SERVICES, [facility] FOR BLS TRANSPORT AT 1:30PM.
[2024-08-26 11:36] VITALS: BP 155/68; PULSE 82; RESP 18; TEMP 36.3; O2SAT 96
[2024-08-26 11:43] LABS: Glucose, Whole Blood 108 mg/dL (60-115)
[2024-08-26 12:03] LABS: Lyme Abs Screen POSITIVE
[2024-08-28 14:18] LABS: 39KD (IgG) Band NON-REACTIVE; 41KD (IgG) Band REACTIVE; Lyme IgG Blot Interp NEGATIVE (NEGATIVE); Lyme IgM Blot Interp NEGATIVE (NEGATIVE)
== END 2024-08-26 15:19 | disposition home or self-care (01) | DRG 58 ==
LOC: HO.ED 16:22 → HO.EDOVER 16:24 → HO.IMC 08-19 14:23
PROVIDERS: Internal Medicine; Nurse Practitioner Acute Care; Physician Assistant Medical; Admitting Provider Internal Medicine; Emergency Provider Emergency Medicine; PCP Student in an Organized Health Care Education/Training Program; Visit Provider Internal Medicine
DX: G35 Multiple sclerosis (principal); N18.6 End stage renal disease; I13.2 Hypertensive heart and chronic kidney disease with heart failure and with stage 5 chronic kidney disease, or end stage renal disease; J96.11 Chronic respiratory failure with hypoxia; N25.81 Secondary hyperparathyroidism of renal origin; I50.22 Chronic systolic (congestive) heart failure; I42.8 Other cardiomyopathies; E11.42 Type 2 diabetes mellitus with diabetic polyneuropathy; E11.319 Type 2 diabetes mellitus with unspecified diabetic retinopathy without macular edema; E11.51 Type 2 diabetes mellitus with diabetic peripheral angiopathy without gangrene; G89.29 Other chronic pain; E11.22 Type 2 diabetes mellitus with diabetic chronic kidney disease; D63.1 Anemia in chronic kidney disease; H54.8 Legal blindness, as defined in USA; G81.91 Hemiplegia, unspecified affecting right dominant side; N25.0 Renal osteodystrophy; Z99.2 Dependence on renal dialysis; Z76.5 Malingerer [conscious simulation]; Z99.81 Dependence on supplemental oxygen; Z91.158 Patient's noncompliance with renal dialysis for other reason; Z79.899 Other long term (current) drug therapy
CPT/HCPCS: 36415; 70450; 70496; 70498; 70551; 70552; 71045; 80048; 80061; 82010; 82803; 82947; 84484; 85025; 85027; 85610; 85652; 85730; 86038; 86617; 86618; 90999; 93005; 97110; 97162; 97166; 97530; 99285; A9585; J0360; J1171; J1200; J2405; J2765; J2919; Q9967

== ENCOUNTER → 2024-08-18 13:00 | Outpatient (BNV) | payer OTHER, SELFPAY | PROVIDERS: Emergency Provider Emergency Medicine; Visit Provider Radiology Diagnostic Radiology | DX: I65.23 Occlusion and stenosis of bilateral carotid arteries (principal); R90.82 White matter disease, unspecified; R53.1 Weakness | CPT/HCPCS: 70450; 70496; 70498; 71045 ==

== ENCOUNTER → 2024-08-18 13:00 | Outpatient (BNV) | payer OTHER, SELFPAY | PROVIDERS: Admitting Provider Internal Medicine; Emergency Provider Emergency Medicine; Visit Provider Internal Medicine | DX: I45.10 Unspecified right bundle-branch block (principal) | CPT/HCPCS: 93010 ==

== ENCOUNTER 2024-08-18 16:22 | Outpatient (BNV) | payer OTHER, SELFPAY | END 2024-08-21 16:55 | PROVIDERS: Admitting Provider Internal Medicine; Emergency Provider Emergency Medicine; PCP Student in an Organized Health Care Education/Training Program; Visit Provider Radiology Diagnostic Radiology | DX: G35 Multiple sclerosis (principal) | CPT/HCPCS: 70552 ==

== ENCOUNTER 2024-08-18 16:22 | Outpatient (BNV) | payer OTHER, SELFPAY | END 2024-08-20 12:15 | PROVIDERS: Admitting Provider Internal Medicine; Emergency Provider Emergency Medicine; PCP Student in an Organized Health Care Education/Training Program; Visit Provider Radiology Diagnostic Radiology | DX: H47.093 Other disorders of optic nerve, not elsewhere classified, bilateral (principal) | CPT/HCPCS: 70551 ==

== ENCOUNTER → 2024-08-18 16:22 | Outpatient (BNV) | payer OTHER, SELFPAY | PROVIDERS: Admitting Provider Internal Medicine; Emergency Provider Emergency Medicine; PCP Student in an Organized Health Care Education/Training Program; Visit Provider Psychiatry & Neurology Neurology | DX: G35 Multiple sclerosis (principal) | CPT/HCPCS: 99222 ==

== ENCOUNTER → 2024-08-18 16:22 | Outpatient (BNV) | payer OTHER, SELFPAY | PROVIDERS: Admitting Provider Internal Medicine; Emergency Provider Emergency Medicine; Visit Provider Nurse Practitioner Acute Care | DX: E11.9 Type 2 diabetes mellitus without complications (principal); N18.6 End stage renal disease; Z99.2 Dependence on renal dialysis; G35 Multiple sclerosis | CPT/HCPCS: 99223; 99232; 99233 ==

== ENCOUNTER 2024-08-27 05:56 | Inpatient (IN) | payer OTHER, SELFPAY ==
[2024-08-27] VITALS (11 sets, daily range): BP systolic 92–214; BP diastolic 54–149; PULSE 73–90; RESP 14–18; TEMP 36.1–37.1; O2SAT 95–100; BMI 50.6; BMI 40.0
--- NOTE | 2024-08-27 | ECG_ITS ---
Test Reason : fall Blood Pressure : */* mmHG Vent. Rate : 83 BPM Atrial Rate : 83 BPM P-R Int : 154 ms QRS Dur : 160 ms QT Int : 492 ms P-R-T Axes : 77 -24 75 degrees QTcB Int : 578 ms Normal sinus rhythm Possible Left atrial enlargement Right bundle branch block Minimal voltage criteria for LVH, may be normal variant ( R in aVL ) T wave abnormality, consider lateral ischemia Abnormal ECG When compared with ECG of 18-Aug-2024 13:19, T wave inversion now evident in Anterolateral leads Referred By: Generic ED Physician Electronically Signed By: HATTIE BAÑUELOS MD
--- NOTE | ~2024-08-27 | CT_ITS ---
CLINICAL HISTORY: head injury CT head without contrast Comparison: None provided Findings: No intra-axial mass, midline shift, hydrocephalus, or acute hemorrhage. No significant atrophy-like change or white matter disease. There is no sinus or mastoid fluid. Right-sided phthsis bulbi noted. There is no acute fracture. IMPRESSION: 1. No acute intracranial findings. This document has been electronically signed by: Umang Hernandez MD on 08/27/2024 09:58:08
--- NOTE | ~2024-08-27 | CT_ITS ---
CLINICAL HISTORY: Dialysis patient status post fall complaining of --- Additional Notes or Special Instructions: diffuse pain CT abdomen and pelvis without contrast Comparison: None provided Findings: No consolidation or effusion. The unenhanced liver, spleen, adrenal glands and pancreas demonstrate no acute process. The gallbladder is absent. Kidneys demonstrate vascular calcification. No obstructive uropathy. Mild fecal retention within the colon. No obstruction, free air, free fluid, abscess or adenopathy. Uterus and adnexa are within expected limits. The bony pelvis is intact. No proximal femoral fracture or sacral fracture. Evaluation of the lumbar spine demonstrates mild degenerative changes. Impression: Several chronic findings. No definite acute process. This document has been electronically signed by: Umang Hernandez MD on 08/27/2024 10:05:19
--- NOTE | ~2024-08-27 | CT_ITS ---
CLINICAL HISTORY: fall, pain CT cervical spine without contrast Comparison: None provided Findings: Normal vertebral body alignment. No significant degenerative change. No acute fractures or dislocations. Visualized intracranial contents are unremarkable. No cervical fluid collections or masses. Lung apices are clear. IMPRESSION: No acute findings. This document has been electronically signed by: Umang Hernandez MD on 08/27/2024 09:55:56
--- NOTE | ~2024-08-27 | CT_ITS ---
CLINICAL HISTORY: trauma CT chest without contrast Comparison: None provided Findings: Well-positioned tunneled hemodialysis catheter on the right. No cardiomegaly. Moderate atherosclerotic disease of the coronary arteries. No mediastinal adenopathy or pericardial effusion. Patchy multifocal airspace opacity within the right lower lobe. No effusion. No pneumothorax. No acute osseous finding in the chest. Unhealed/partially healed right posterior-lateral 7th rib. Reformatted imaging of the thoracic spine demonstrates no acute fracture. Impression: Right lower lobe pneumonia. Follow-up recommended to ensure resolution. Incompletely healed right posterior lateral 7th rib fracture. Additional incidental findings. This document has been electronically signed by: Umnag Hernandez MD on 08/27/2024 10:10:08
[2024-08-27 06:19] LABS: Glucose, Whole Blood 65 mg/dL (60-115)
[2024-08-27 06:21] LABS: Hematocrit 30.0 % (37.0-47.0); Hemoglobin 10.4 g/dl (12.0-16.0); Imm Gran Abs Auto 0.26 X10*3/uL (0.00-0.03); Imm Gran Pct Auto 1.7 % (0.0-0.4); Lymphocytes Absolute Auto 1.2 X10*3/uL (1.2-4.9); MANUAL DIFF FLAG SCAN; Mean Corpuscular HGB Conc 34.7 g/dl (31.0-35.0); Mean Corpuscular Hemoglobin 31.8 pg (27.0-33.0); Mean Corpuscular Volume 91.7 fL (80.0-98.0); NRBC Abs Auto 0.000 X10*3/uL (0.0-0.012); NRBC Pct Auto 0.0 /100WBC (0.0-0.2); Platelet Count 154 X10*3/uL (160-400); Red Blood Count 3.27 X10*6/uL (4.20-5.50); SCAN SMEAR FLAG 1; White Blood Count 15.6 X10*3/uL (4.8-10.8)
[2024-08-27 06:35] LABS: Glucose, Whole Blood 122 mg/dL (60-115)
[2024-08-27 06:52] LABS: Alanine Aminotransferase 12 U/L (0-31); Albumin Level 3.8 g/dL (3.5-5.0); Alkaline Phosphatase 135 U/L (39-117); Anion Gap 18 (12-20); Aspartate Amino Transferase 17 U/L (5-31); Blood Urea Nitrogen 86 mg/dL (9-16); Calcium 6.2 mg/dL (8.4-10.2); Carbon Dioxide 21 mmol/L (22-29); Chloride 102 mmol/L (96-108); Creatinine Clr Calc Pharmacy 15.0; Estimated Glomerular Filt Rate 7; Potassium 3.2 mmol/L (3.3-5.1); Sodium 138 mmol/L (135-145); Total Protein 6.8 g/dL (6.5-8.0)
[2024-08-27 06:53] LABS: Troponin-I High Sensitivity 102.0 ng/L (<3.5-17.0)
--- NOTE | 2024-08-27 07:08 | ED.FALL ---
HPI - Fall General Chief Complaint: Fall Stated Complaint: HYPOGLYCEMIC Time Seen by Provider: 08/27/24 06:55 History of Present Illness HPI Narrative: Patient is a 34-year-old female status post fall has a long history of diabetes, end-stage renal disease. Currently on dialysis Sunday. Got her dialysis yesterday. Patient this morning was found on the ground question fall complaining of diffuse body pain. Noted to have a low sugar. Glucagon and sugar was given. Patient sent to the ED for further evaluation. Related Data Home Medications ?Medication ?Instructions ?Recorded ?Confirmed albuterol sulfate 90 mcg/actuation 2 puff inhalation Q6H PRN wheezing 01/15/24 08/18/24 aerosol inhaler (Ventolin HFA) lidocaine 5 % topical patch 1 patch topical DAILY PRN Pain 01/15/24 08/18/24 nitroglycerin 0.4 mg sublingual 0.4 mg sublingual DIRECTED PRN 01/15/24 08/18/24 tablet Angina acetaminophen 325 mg tablet 650 mg PO Q4H PRN mild pain 03/11/24 08/18/24 calcium carbonate (Tums) 200 mg PO TIDWM PRN Acid Reflux 07/03/24 08/18/24 Previous Rx's ?Medication ?Instructions ?Recorded carvedilol 12.5 mg tablet 12.5 mg PO BID 90 days #180 tabs 12/16/23 hydralazine 50 mg tablet 50 mg PO TID 90 days #270 tabs 12/16/23 ondansetron 4 mg disintegrating 4 mg PO Q8H PRN nausea and 07/06/24 tablet vomiting #12 tabs alcohol swabs 1 pad topical QIDACHS #100 ea 08/26/24 blood sugar diagnostic (FreeStyle #100 ea 08/26/24 Lite Strips) blood-glucose meter (FreeStyle #1 ea 08/26/24 Lite Meter kit) insulin lispro 100 unit/mL 0 sliding scale dose subcut 08/26/24 subcutaneous pen (Humalog KwikPen QIDACHS #15 mL (U-100) Insulin) lancets 28 gauge (FreeStyle #100 ea 08/26/24 Lancets) pen needle, diabetic 32 gauge x #100 ea 08/26/24 1/ Allergies Allergy/AdvReac Type Severity Reaction Status Date / Time gabapentin Allergy Severe Facial Verified 08/27/24 06:05 Swelling tramadol Allergy Severe Facial Verified 08/27/24 06:05 Swelling vancomycin Allergy Severe Anaphylaxis Verified 08/27/24 06:05 azithromycin (From Zithromax) Allergy Intermediate Hives Verified 08/27/24 06:05 morphine (MORPHINE) Allergy Intermediate Itching Verified 08/27/24 06:05 Review of Systems Review of Systems: Diffuse body ache. Patient unsure as to what happened. Diffuse body weakness PMFSH Past Medical History Attestation statement: The following information was validated with the patient. Medical History ESRD on dialysis Hypoxia End stage renal disease on dialysis Chronic ulcer of right foot due to diabetes mellitus Chronic ulcer of left foot due to diabetes mellitus DM foot ulcer ESRD on hemodialysis Hypotonic neurogenic bladder Diabetic polyneuropathy Hypertensive emergency Decompensated heart failure Renal failure Hypertension, uncontrolled Medical non-compliance Pericarditis Unspecified hypertension, condition or complication Metabolic acidosis Gastroparesis End stage chronic kidney disease Chronic kidney disease Anemia Plantar ulcer of left foot MDD (major depressive disorder) CKD (chronic kidney disease) Hypertension Hyperkalemia Vomiting Chronic pain Non-compliance with renal dialysis End-stage renal disease (ESRD) Diabetic foot ulcer associated with type 2 diabetes mellitus Cardiomyopathy HFrEF (heart failure with reduced ejection fraction) delivery delivered Anemia in chronic kidney disease (CKD) CKD (chronic kidney disease) Abnormal finding on echocardiogram Elevated troponin Acute worsening of stage 3 chronic kidney disease Generalized edema Sepsis Cellulitis Pleural effusion Atypical chest pain Bone infection PAD (peripheral artery disease) Cellulitis and abscess of foot Osteomyelitis Asthma Depression with anxiety Diabetic retinopathy Blind right eye Diabetes Back pain Surgical History Tubal ligation status Previous section Hx laparoscopic cholecystectomy Hx of surgical procedure (~09/11/23) 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 Family History Family History Mother Coronary artery disease Myocardial infarction Stroke Diabetes mellitus Father Myocardial infarction Social History Social History Household Members: Unknown / Unable to assess Household Members Other:: sister Housing: Unknown / Unable to assess Are you a primary special needs child caregiver to a significant other at home: No Unable to assess alcohol history related to: Unknown Alcohol intake: never Comment: refused camera Patient Tobacco Use Status: Never used Tobacco e-Cigarette/Vaping Use: Never Used Second Hand Smoke Exposure: No Advance Directives: Yes Advance Directives on File: Yes Advance Directives Date on File: 08/28/23 Do you have a plan to hurt others: No Plan service: No Current occupational status: unemployed and disabled Gender identity: Female Physical Exam Vital Signs: Vital Signs: Last Vital Signs Temp 97.8 F 08/27/24 08:52 Pulse 76 08/27/24 10:11 Resp 16 08/27/24 10:11 BP 196/95 H 08/27/24 10:11 Pulse Ox 98 08/27/24 10:11 O2 Del Method Room Air 08/27/24 10:11 BMI result Body Mass Index 50.6 Appearance: Chronically sick-appearing. Eyes: Pupils equal, round and reactive to light. ENT: Pharynx normal. Neck: Normal inspection. Neck supple. No lymph nodes noted. No crepitus CVS: Normal heart rate and rhythm. Pulses normal. Normal S1 and S2 Respiratory: No respiratory distress. Breath sounds normal. No Wheezing. No rales Abdomen: Soft and nontender. No rigidity. No distention. good BS x4 Skin: Skin warm and dry. Normal skin color. Normal skin turgor. Extremities: No lower extremity edema. Status post bilateral toe amputation. On the left side there is and chronic ulcer at the plantar surface of the foot. Approximately 3 cm by 3 cm in size. With a nice granulation tissue at the bottom. No signs of infection. Examination of the right foot showed an ulcer on the dorsum of the right foot. There is an ulcer there as well. Approximately 2 cm x 1 cm in size. Granulation tissue at the base. No redness no discharge. Neuro: Oriented X 3. Very weak diffuse weakness noted in the upper and the lower extremity Medications Administered Discontinued Medications Generic Name Dose Route Start Last Admin Trade Name Freq PRN Reason Stop Dose Admin Dextrose 25 gm 08/27/24 06:10 08/27/24 06:14 Dextrose 50 % 25 Gm/50 Ml Syringe IVPUSH 08/27/24 06:11 25 gm ONCE ONE Administration Dextrose 25 gm 08/27/24 08:08 08/27/24 08:21 Dextrose 50 % 25 Gm/50 Ml Syringe IVPUSH 08/27/24 08:09 25 gm ONCE ONE Administration Dextrose 25 gm 08/27/24 10:25 08/27/24 10:29 Dextrose 50 % 25 Gm/50 Ml Syringe IVPUSH 08/27/24 10:26 25 gm ONCE ONE Administration Glucagon 1 mg 08/27/24 08:14 08/27/24 08:21 Glucagon Hcl 1 Mg Vial IVPUSH 08/27/24 08:15 1 mg ONCE ONE Administration Hydromorphone HCl 0.5 mg 08/27/24 07:04 08/27/24 07:21 Hydromorphone Hcl 0.5 Mg/0.5 Ml Syringe IVPUSH 08/27/24 07:05 0.5 mg ONCE ONE Administration Protocol Medical Decision Making Medical Decision Making [facility] Narrative: Patient presented in extremis weak had an unwitnessed fall at home. Patient was noted to have low sugar. Just got discharged yesterday. Given gone given D10 250 cc prior to arrival normally gets dialysis Sunday likely got dialysis prior to discharge yesterday patient's electrolytes showed a potassium that was in the 3 range. No signs of hyperkalemia. Glucose dropped to less than 10. Requiring additional D50 additional p.o., glucagon to bring the sugar up. CT scan of the head C-spine chest abdomen pelvis was done. CT head by my interpretation was negative for bleed CT scan of the chest abdomen pelvis was positive for a right lower lobe infiltrate. Will obtain cultures and lactate. Antibiotics to be started. Patient's troponin is 100 likely this is baseline as patient has a history of end-stage renal disease. Will require admission for tight glucose control. Patient's white count is 16 in the emergency department. COVID flu RSV were all negative. My interpretation of her EKG showed a sinus rhythm with a right bundle branch block heart rate was approximately 90 there is no acute changes when compared to previous patient is an end-stage renal patient unable to give 30 cc/kilos IV fluids. Differential Diagnosis Differential Diagnoses: The differential diagnosis associated with the presentation includes Hypoglycemia, pneumonia, sepsis. Admission/Observation Consideration of admission/observation: Escalation of care including admission/observation considered Consult Healthcare Provider Management of the patient was discussed with: Hospitalist Lab Data [facility] Lab Attestation statement: I reviewed the patient's lab results. 08/27/24 06:15 08/27/24 06:15 Labs: Lab Results 08/27/24 08/27/24 08/27/24 Range/Units 06:00 06:15 06:32 WBC 15.6 H (4.8-10.8) X10*3/uL RBC 3.27 L D (4.20-5.50) X10*6/uL Hgb 10.4 L D (12.0-16.0) g/dl Hct 30.0 L (37.0-47.0) % MCV 91.7 (80.0-98.0) fL MCH 31.8 (27.0-33.0) pg MCHC 34.7 (31.0-35.0) g/dl RDW 17.1 H (11.0-16.0) % Plt Count 154 L (160-400) X10*3/uL MPV 11.4 (9.4-12.3) fL Immature Gran % (Auto) 1.7 H (0.0-0.4) % Neut % (Auto) 78.1 H (45-73) % Lymph % (Auto) 7.6 L (20-40) % Hughes % (Auto) 11.5 H (2-11) % Eos % (Auto) 1.0 (0-4) % Baso % (Auto) 0.1 (0-2) % Lymph # (Auto) 1.2 (1.2-4.9) X10*3/uL Hughes # (Auto) 1.8 H (0.1-1.2) X10*3/uL Eos # (Auto) 0.2 (0.0-0.4) X10*3/uL Baso # (Auto) 0.0 (0.0-0.2) X10*3/uL Abs Immat Gran (auto) 0.26 H (0.00-0.03) X10*3/uL Absolute Neuts (auto) 12.2 H (2.0-8.3) x10*3/uL Absolute Nucleated RBC 0.000 (0.0-0.012) X10*3/uL Nucleated RBC % (auto) 0.0 (0.0-0.2) /100WBC Smear [facility]'s Comments VERIFIED Sodium 138 (135-145) mmol/L Potassium 3.2 L D (3.3-5.1) mmol/L Chloride 102 (96-108) mmol/L Carbon Dioxide 21 L (22-29) mmol/L Anion Gap 18 (12-20) BUN 86 H (9-16) mg/dL Creatinine 6.54 H* (0.5-1.4) mg/dL Estim Creat Clear Calc 15.0 Estimated GFR 7 POC Glucose 65 122 H (60-115) mg/dL Random Glucose 252 H (60-115) mg/dL Calcium 6.2 L D (8.4-10.2) mg/dL Total Bilirubin 0.7 (0.0-1.0) mg/dL AST 17 (5-31) U/L ALT 12 (0-31) U/L Alkaline Phosphatase 135 H (39-117) U/L Troponin I High Sens 102.0 H* (<3.5-17.0) ng/L Total Protein 6.8 (6.5-8.0) g/dL Albumin 3.8 (3.5-5.0) g/dL Beta HCG, Quant < 2 mIU/mL Influenza Type A (PCR) (Negative) Influenza Type B (PCR) (Negative) RSV RNA Qual (PCR) (Negative) SARS-CoV-2 RNA (RT-PCR) (Negative) 08/27/24 08/27/24 08/27/24 Range/Units 08:08 08:37 08:48 WBC (4.8-10.8) X10*3/uL RBC (4.20-5.50) X10*6/uL Hgb (12.0-16.0) g/dl Hct (37.0-47.0) % MCV (80.0-98.0) fL MCH (27.0-33.0) pg MCHC (31.0-35.0) g/dl RDW (11.0-16.0) % Plt Count (160-400) X10*3/uL MPV (9.4-12.3) fL Immature Gran % (Auto) (0.0-0.4) % Neut % (Auto) (45-73) % Lymph % (Auto) (20-40) % Hughes % (Auto) (2-11) % Eos % (Auto) (0-4) % Baso % (Auto) (0-2) % Lymph # (Auto) (1.2-4.9) X10*3/uL Hughes # (Auto) (0.1-1.2) X10*3/uL Eos # (Auto) (0.0-0.4) X10*3/uL Baso # (Auto) (0.0-0.2) X10*3/uL Abs Immat Gran (auto) (0.00-0.03) X10*3/uL Absolute Neuts (auto) (2.0-8.3) x10*3/uL Absolute Nucleated RBC (0.0-0.012) X10*3/uL Nucleated RBC % (auto) (0.0-0.2) /100WBC Smear Tech's Comments Sodium (135-145) mmol/L Potassium (3.3-5.1) mmol/L Chloride (96-108) mmol/L Carbon Dioxide (22-29) mmol/L Anion Gap (12-20) BUN (9-16) mg/dL Creatinine (0.5-1.4) mg/dL Estim Creat Clear Calc Estimated GFR POC Glucose < 10 L* 93 (60-115) mg/dL Random Glucose (60-115) mg/dL Calcium (8.4-10.2) mg/dL Total Bilirubin (0.0-1.0) mg/dL AST (5-31) U/L ALT (0-31) U/L Alkaline Phosphatase (39-117) U/L Troponin I High Sens 101.8 H* (<3.5-17.0) ng/L Total Protein (6.5-8.0) g/dL Albumin (3.5-5.0) g/dL Beta HCG, Quant mIU/mL Influenza Type A (PCR) NEGATIVE (Negative) Influenza Type B (PCR) NEGATIVE (Negative) RSV RNA Qual (PCR) NEGATIVE (Negative) SARS-CoV-2 RNA (RT-PCR) NEGATIVE (Negative) 08/27/24 Range/Units 09:10 WBC (4.8-10.8) X10*3/uL RBC (4.20-5.50) X10*6/uL Hgb (12.0-16.0) g/dl Hct (37.0-47.0) % MCV (80.0-98.0) fL MCH (27.0-33.0) pg MCHC (31.0-35.0) g/dl RDW (11.0-16.0) % Plt Count (160-400) X10*3/uL MPV (9.4-12.3) fL Immature Gran % (Auto) (0.0-0.4) % Neut % (Auto) (45-73) % Lymph % (Auto) (20-40) % Hughes % (Auto) (2-11) % Eos % (Auto) (0-4) % Baso % (Auto) (0-2) % Lymph # (Auto) (1.2-4.9) X10*3/uL Hughes # (Auto) (0.1-1.2) X10*3/uL Eos # (Auto) (0.0-0.4) X10*3/uL Baso # (Auto) (0.0-0.2) X10*3/uL Abs Immat Gran (auto) (0.00-0.03) X10*3/uL Absolute Neuts (auto) (2.0-8.3) x10*3/uL Absolute Nucleated RBC (0.0-0.012) X10*3/uL Nucleated RBC % (auto) (0.0-0.2) /100WBC Smear Tech's Comments Sodium (135-145) mmol/L Potassium (3.3-5.1) mmol/L Chloride (96-108) mmol/L Carbon Dioxide (22-29) mmol/L Anion Gap (12-20) BUN (9-16) mg/dL Creatinine (0.5-1.4) mg/dL Estim Creat Clear Calc Estimated GFR POC Glucose 101 (60-115) mg/dL Random Glucose (60-115) mg/dL Calcium (8.4-10.2) mg/dL Total Bilirubin (0.0-1.0) mg/dL AST (5-31) U/L ALT (0-31) U/L Alkaline Phosphatase (39-117) U/L Troponin I High Sens (<3.5-17.0) ng/L Total Protein (6.5-8.0) g/dL Albumin (3.5-5.0) g/dL Beta HCG, Quant mIU/mL Influenza Type A (PCR) (Negative) Influenza Type B (PCR) (Negative) RSV RNA Qual (PCR) (Negative) SARS-CoV-2 RNA (RT-PCR) (Negative) Independent Interpretation I performed an independent interpretation of an: EKG (Right bundle branch block no significant changes) and CT Scan (CT head negative) Radiology Impression Discussion of test interpretation with radiology: I have reviewed the radiologist's reading. Critical Care Time Critical Care Time Critical Care Time: Yes Total Critical Care Time: 40 Attestation: I have personally provided 40 minutes of critical care time exclusive of time spent on separately billable procedures. ?Time includes review of lab data, radiology results, discussion with consultants, and monitoring for potential decompensation. ?Interventions were performed as documented above Discharge Plan Discharge Clinical Impression: Pneumonia, Hypoglycemia Patient Disposition: Admitted As Inpatient Print Language: Polish
--- OUTSIDE RECORDS SUMMARY | 2024-08-27 07:09 | XMS_ITS | Encounter Summary ---
[facility] Address [address] [place] [address] Care Team Providers Care Senior Sql Server Database Developer Name Role Phone Richard Mathur MD Primary Care Provider Ed Brewer MD Primary Care Provider Un available Community, Pcp Primary Care Provider Unavailabl e Community, Pcp Primary Care Provider Unavailabl e Chanda Nugent Primary Care Provider Unavailabl e Encounter Details Date Type Department Care Team Description 11/05/2015 Release of Information Medical Records [address] [place] [id number] Abstract, Provider Social History Tobacco Use Types [...] on filedocumented in this encounter Care Teams Senior Sql Server Database Developer Relationship Specialty Start Date End Date Richard Mathur MD PCP - General Internal Medicine 06/28/15 11/10/15 Ed Nash MD PCP - General Internal Medicine 11/11/15 Community, Pcp PCP - General Internal Medicine 07/27/16 08/21/17 Community, Pcp PCP - General Internal Medicine 08/22/17 01/09/18 Chanda Nugent PCP - General Internal Medicine 01/10/18 documented as of this encounter
--- OUTSIDE RECORDS SUMMARY | 2024-08-27 07:10 | XMS_ITS | Clinical Summary ---
[facility] Address [address] [place] [address] Care Team Providers Care Veneer Puller Name Role Phone Betty Nugent MD Primary Care Provider [phone] Surgical History Surgery Date Site/Laterality Comments SECTION [...] age to complete this topic Care Teams Veneer Puller Relationship Specialty Start Date End Date Betty Nugent MD [address] [place] PCP - General Internal Medicine 01/10/18
--- OUTSIDE RECORDS SUMMARY | 2024-08-27 07:10 | XMS_ITS | Clinical Summary ---
Author Organization [facility] Address [address] [place] [address] Care Team Providers Care Change Advisor Name Role Phone Unavailable Primary Care Provider [...] 93 01/10/2022 9:57 AM EST Temperature 36.6 C (97.8 F) 01/10/2022 7:46 AM EST Respiratory Rate 18 01/10/2022 7:46 AM EST [...] Smear (Ages 21-65) 2009 COVID-19 Vaccine (3 - 4-2 5 season) 2023 07/16/2020, 06/18/2020 Influenza Vaccine [...] 0.79 S/CO ratio 01/10/2022 10:39 AM EST [employer] Hepatitis C Antibody Interpretation Nonreactive Nonreactive 01/10/2022 10:39 AM EST [employer] Blood specimen (specimen) (Plasma/Serum) 01/09/2022 8:34 AM EST 01/09/2022 9:21 AM EST us Jaziel B Post MD LAB BLOOD ORDERABLES Final Resu lt [facility] [employer] [address] [place] [address] * HIV 1/2 Ag/Ab CMIA Reflex to Confirmation (01/09/2022 8:34 AM EST) HIV 1/2 Ag/Ab CMIA Nonreactive Nonreactive 01/10/2022 10:39 AM EST [employer] Comment: Results show no evidence of infection by HIV 1/2. If clinically indicated, repeat CMIA or test by nucleic acid amplification. HIV 1/2 Antigen/Antibody CMIA reflex to confirmation AND HIV-1 RNA viral load recommended in patients who are taking or have recently taken PrEP. Blood specimen (specimen) Serum specimen / Unknown 01/09/2022 8:34 AM EST 01/09/2022 9:21 AM EST Jaziel Burgess Post MD LAB BLOOD ORDERABLES Final Resu lt [facility] [employer] [address] [place] [address] from Last 3 Months or Most Recently Relevant to Health Maintenance Insurance [facility] MISC MGD MEDICARE OUT OF NETWORK Advance Directives * Full Code (Latest Code Status on File) Date Activated Date Inactivated Comments 01/06/2022 5:00 AM Question Answer Comments Decision Thoroughly Discussed with: Unable to Di scuss
--- OUTSIDE RECORDS SUMMARY | 2024-08-27 07:10 | XMS_ITS | Clinical Summary ---
Author Organization [facility] Address [address] [phone] Phone Care Team Providers Care Supervisor Abattoir Name Role Phone Katlyn Manzanofer Primary Care [...] Encounters Date Type Department Care Team Description 08/14/2024 Treatment [facility] [address] [phone] Ed Carver MD End stage renal disease; Dependence on renal dialysis 08/12/2024 [facility] in Dialysis Clinic [facility] [address] [phone] Ed Carver MD 08/12/2024 Treatment [facility] [address] [phone] Ed Carver MD End stage renal disease; Dependence on renal dialysis 07/24/2024 Treatment [facility] [address] [phone] Ed Carver MD End stage renal disease; Dependence on renal dialysis 07/19/2024 Treatment [facility] [address] [phone] Ed Carver MD End stage renal disease; Dependence on renal dialysis 07/08/2024 [facility] in Dialysis Clinic [facility] [address] [phone] Ed Carver MD 07/08/2024 Treatment [facility] [address] [phone] Ed Carver MD End stage renal disease; Dependence on renal dialysis 07/03/2024 [facility] Only [facility] [address] [phone] Ed Carver MD 07/01/2024 Treatment [facility] [address] [phone] Ed Carver MD End stage renal disease; Dependence on renal dialysis 06/19/2024 Treatment [facility] [address] [phone] Ed Carver MD End stage renal disease; Dependence on renal dialysis 06/17/2024 Treatment [facility] [address] [phone] Ed Carver MD End stage renal disease; Dependence on renal dialysis 06/14/2024 Treatment [facility] [address] [phone] Ed Carver MD End stage renal disease; Dependence on renal dialysis 06/07/2024 Treatment [facility] [address] [phone] Ed Carver MD End stage renal disease; Dependence on renal dialysis from Last 3 Months Immunizations Immunization Administration [...] HEPATITIS B SURFACE ANTIGEN W/REFL CONFIRM Routine 08/07/2024 3:00 AM EDT TRANSFERRIN SATURATION Routine 3:00 AM EDT PROTEIN, TOTAL, SERUM Routine 08/07/2024 3:00 AM EDT MAGNESIUM Routine 08/07/2024 3:00 AM EDT ELECTROLYTE PANEL Routine 08/07/2024 3:0 0 AM EDT LIH (HC) Routine 08/07/2024 3:00 AM EDT LACTATE DEHYDROGENASE Routine 08/07/2024 3:00 AM EDT GLUCOSE, RANDOM Routine 08/07/2024 3:00 AM EDT CREATININE, SERUM Routine 08/07/2024 3:0 0 AM EDT BUN/CREATININE RATIO Routine 08/07/2024 3:00 AM EDT ALKALINE PHOSPHATASE Routine 08/07/2024 3:00 AM EDT AST Routine 08/07/2024 3:00 AM EDT BILIRUBIN, TOTAL Routine 08/07/2024 3:00 AM EDT CALCIUM PHOSPHORUS PRODUCT, ADJUSTED (HC) Routine 08/07/2024 3:00 AM EDT ALT Routine 08/07/2024 3:00 AM EDT FERRITIN Routine 08/07/2024 3:00 AM EDT CBC AND DIFFERENTIAL Routine 08/07/2024 3:00 AM EDT KT/V NATURAL LOG, URR (HC) Routine 08/07/2024 3:00 AM EDT LIH (HC) Routine 07/22/2024 3:00 AM EDT PHOSPHATE ( PHOSPHORUS) Routine 07/22/2024 3:00 AM EDT HEMOGLOBIN Routine 07/17/2024 3:00 AM EDT TRANSFERRIN SATURATION Routine 3:00 AM EDT PROTEIN, [...] URR (HC) Routine 06/05/2024 3:00 AM EDT from Last 3 Months Results * [facility] (08/07/2024 3:00 AM EDT) Only the most recent of5 resultswithin the time period is included. Lipemia Normal Normal [facility] Icterus Normal Normal [facility] Hemolysis Normal Normal [facility] 08/07/2024 3:00 AM EDT 08/08/2024 12:23 PM EDT us Ed Carver MD LAB HISTORICA [id number] RESULTS Final Result [facility] [address] [place] [address] * (ABNORMAL) Kt/V Natural Log, URR (08/07/2024 3:00 AM EDT) Only the most recent of3 resultswithin the time period is included. Treatment Time 120 min [facility] Pre-Weight, lb 82.3 kg [facility] Post-Weight, lb 80.6 kg [facility] Ultrafiltration Rate 11 <=13 mL/kg/hr [facility] Comment: Recommend achieving Ultrafiltration Rate (UFR) <=10 mL/kg/hr References: Estelle GARCIA et al. Kidney Int. 2010; 79(2):250-257 BUN Post Dialysis 23 7 - 25 mg/dL [facility] BUN 69(H) 7 - 25 mg/dL [facility] UREA REDUCTION RATIO (%) 67 >=65 % [facility] Kt/V Natural Log 1.21 >=1.2 [facility] 08/07/2024 3:00 AM EDT 08/08/2024 12:21 PM EDT Ed Carver MD LAB HISTORICA [id number] RESULTS Final Result [facility] [address] [place] [address] * (ABNORMAL) Calcium Phosphorus Product, Adjusted (08/07/2024 3:00 AM EDT) Only the most recent of3 resultswithin the time period is included. Albumin 4.2 3.6 - 5.4 g/dL [facility] Calcium 9.1 8.6 - 10.3 mg/dL [facility] Phosphorus, Serum 9.2(H) 2.5 - 5.0 mg/dL [facility] Ca*PO4 83.7(A) <55.0 mg2/dL2 [facility] Calcium, Adjusted Total 9.1 8.6 - 10.3 mg/dL [facility] CA*PO4 CORRCTD 83.7(A) <55.0 mg2/dL2 [facility] 08/07/2024 3:00 AM EDT 08/08/2024 12:23 PM EDT us Ed Carver MD LAB HISTORICA [id number] RESULTS Final Result Performing Organization Address [facility] Co de Phone Number [facility] [address] [place] [address] * Hepatitis B Surface Ag w/Reflex Confirmation (08/07/2024 3:00 AM EDT) Only the most recent of3 resultswithin the time period is included. Hep B Surface Antigen Negative Negative [facility] 08/07/2024 3:00 AM EDT 08/08/2024 12:23 PM EDT Ed Carver MD LAB BLOOD ORDERABLES Final Result Performing Organization Address [facility] de Phone Number [facility] [address] [place] [address] * BUN/CREATININE RATIO (08/07/2024 3:00 AM EDT) Only the most recent of2 resultswithin the time period is included. BUN/Creatinine Ratio 7.4 <=23.0 [facility] 08/07/2024 3:00 AM EDT 08/08/2024 12:23 PM EDT Ed Carver MD LAB HISTORICA [id number] RESULTS Final Result Performing Organization Address [facility] de Phone Number [facility] [address] [place] [address] * (ABNORMAL) TSAT (08/07/2024 3:00 AM EDT) Only the most recent of3 resultswithin the time period is included. Iron 69 50 - 170 ug/dL [facility] Transferrin 168(L) 250 - 380 mg/dL [facility] TIBC 235 211 - 406 ug/dL [facility] Iron Saturation (TSat) 29 22 - 52 % [facility] 08/07/2024 3:00 AM EDT 08/08/2024 12:23 PM EDT us Ed Carver MD LAB BLOOD ORDERABLES Final Result [facility] [address] [place] [address] * (ABNORMAL) CBC and Differential (08/07/2024 3:00 AM EDT) Only the most recent of3 resultswithin the time period is included. DIFFERENTIAL MANUAL, 2 Not Indicated [facility] White Blood Cells 6.2 4.0 - 10.0 K/uL [facility] RBC 2.96(L) 3.93 - 5.22 M/uL [facility] Hgb 9.2(L) 11.2 - 15.7 g/dL [facility] Hemoglobin x 3 27.6(L) 33.6 - 47.1 g/dL [facility] Hematocrit 28.1(L) 34.1 - 44.9 % [facility] MCV 94.9(H) 79.4 - 94.8 fL [facility] MCH 31.1 25.6 - 32.2 pg [facility] MCHC 32.7 32.2 - 35.5 g/dL [facility] RDW 16.7(H) 11.7 - 14.4 % [facility] Platelets 149(L) 182 - 369 K/uL [facility] Neutrophils Relative 64.9 34.0 - 71.1 % [facility] Lymphocytes Relative 15.1(L) 19.3 - 51.7 % [facility] Monocytes 15.8(H) 4.7 - 12.5 % [facility] Eosinophils Relative 3.2 0.7 - 5.8 % [facility] Basophils Relative 0.5 0.1 - 1.2 % [facility] Immature Granulocytes 0.5 0.0 - 1.0 % [facility] 08/07/2024 3:00 AM EDT 08/08/2024 12:23 PM EDT Ed Carver MD LAB BLOOD ORDERABLES Final Result [facility] [address] [place] [address] * ALT (08/07/2024 3:00 AM EDT) Only the most recent of3 resultswithin the time period is included. ALT (SGPT) 13 10 - 49 U/L [facility] 08/07/2024 3:00 AM EDT 08/08/2024 12:23 PM EDT Ed Carver MD LAB BLOOD ORDERABLES Final Result Performing Organization Address City/[facility] Co de Phone Number [facility] [address] [place] [address] * AST (08/07/2024 3:00 AM EDT) Only the most recent of3 resultswithin the time period is included. AST (SGOT) 30 <34 U/L [facility] 08/07/2024 3:00 AM EDT 08/08/2024 12:23 PM EDT Ed Carver MD LAB BLOOD ORDERABLES Final Result Performing Organization Address [facility] Co de Phone Number [facility] [address] [place] [address] * Protein, total (08/07/2024 3:00 AM EDT) Only the most recent of3 resultswithin the time period is included. Total Protein 8.0 6.4 - 8.9 g/dL [facility] 08/07/2024 3:00 AM EDT 08/08/2024 12:23 PM EDT Ed Carver MD LAB BLOOD ORDERABLES Final Result Performing Organization Address [facility] Co de Phone Number [facility] [address] [place] [address] * (ABNORMAL) Alkaline phosphatase (08/07/2024 3:00 AM EDT) Only the most recent of3 resultswithin the time period is included. Alkaline Phosphatase 204(H) 46 - 116 U/L [facility] 08/07/2024 3:00 AM EDT 08/08/2024 12:23 PM EDT us Ed Carver MD LAB BLOOD ORDERABLES Final Result Performing Organization Address [facility] Co de Phone Number [facility] [address] [place] [address] * (ABNORMAL) Magnesium (08/07/2024 3:00 AM EDT) Only the most recent of3 resultswithin the time period is included. Magnesium 2.9(H) 1.9 - 2.7 mg/dL [facility] 08/07/2024 3:00 AM EDT 08/08/2024 12:23 PM EDT us Ed Carver MD LAB BLOOD ORDERABLES Final Result Performing Organization Address [facility] de Phone Number [facility] [address] [place] [address] * (ABNORMAL) Lactate dehydrogenase (08/07/2024 3:00 AM EDT) Only the most recent of3 resultswithin the time period is included. LDH 302(H) 120 - 246 U/L [facility] 08/07/2024 3:00 AM EDT 08/08/2024 12:23 PM EDT Ed Carver MD LAB BLOOD ORDERABLES Final Result Performing Organization Address [facility] de Phone Number [facility] [address] [place] [address] * (ABNORMAL) Glucose, random (08/07/2024 3:00 AM EDT) Only the most recent of3 resultswithin the time period is included. Glucose 100(H) 70 - 99 mg/dL [facility] Comment: ADA guidelines outline the following fasting glucose ranges: Normal: <100 Prediabetes: 100-125 Diabetes: >125 08/07/2024 3:00 AM EDT 08/08/2024 12:23 PM EDT us Ed Carver MD LAB BLOOD ORDERABLES Final Result Performing Organization Address City/[facility] Co de Phone Number [facility] [address] [place] [address] * Ferritin (08/07/2024 3:00 AM EDT) Only the most recent of3 resultswithin the time period is included. Ferritin 166 10 - 291 ng/mL [facility] 08/07/2024 3:00 AM EDT 08/08/2024 12:23 PM EDT us Ed Carver MD LAB BLOOD ORDERABLES Final Result Performing Organization Address [facility] de Phone Number [facility] [address] [place] [address] * (ABNORMAL) Creatinine, serum (08/07/2024 3:00 AM EDT) Only the most recent of3 resultswithin the time period is included. Creatinine 9.27(H) 0.55 - 1.02 mg/dL [facility] 08/07/2024 3:00 AM EDT 08/08/2024 12:23 PM EDT us Ed Carver MD LAB BLOOD ORDERABLES Final Result Performing Organization Address [facility] de Phone Number [facility] [address] [place] [address] * Bilirubin, total (08/07/2024 3:00 AM EDT) Only the most recent of3 resultswithin the time period is included. Total Bilirubin 0.4 0.3 - 1.2 mg/dL [facility] 08/07/2024 3:00 AM EDT 08/08/2024 12:23 PM EDT us Ed Carver MD LAB BLOOD ORDERABLES Final Result Performing Organization Address [facility] de Phone Number [facility] [address] [place] [address] * (ABNORMAL) Electrolyte panel (08/07/2024 3:00 AM EDT) Only the most recent of3 resultswithin the time period is included. Sodium 136 136 - 145 mEq/L [facility] Potassium 5.3(H) 3.4 - 5.0 mEq/L [facility] Chloride 97(L) 98 - 107 mEq/L [facility] Bicarbonate (CO2) 24 21 - 31 mEq/L [facility] Anion Gap 15(H) 3 - 14 mEq/L [facility] 08/07/2024 3:00 AM EDT 08/08/2024 12:23 PM EDT Ed Carver MD LAB BLOOD ORDERABLES Final Result Performing Organization Address [facility] de Phone Number [facility] [address] [place] [address] * (ABNORMAL) Phosphorus (07/22/2024 3:00 AM EDT) Phosphorus, Serum 9.2(H) 2.5 - 5.0 mg/dL [facility] 07/22/2024 3:00 AM EDT 07/23/2024 12:58 PM EDT Ed Carver MD LAB BLOOD ORDERABLES Final Result Performing Organization Address [facility] de Phone Number [facility] [address] [place] [address] * (ABNORMAL) Hemoglobin (07/17/2024 3:00 AM EDT) Only the most recent of3 resultswithin the time period is included. Hgb 10.1(L) 11.2 - 15.7 g/dL [facility] Hemoglobin x 3 30.3(L) 33.6 - 47.1 g/dL [facility] 07/17/2024 3:00 AM EDT 07/18/2024 12:22 PM EDT us Ed Carver MD LAB BLOOD ORDERABLES Final Result Performing Organization Address [facility] de Phone Number [facility] [address] [place] [address] * Collection Date (06/21/2024 3:00 AM EDT) Only the most recent of3 resultswithin the time period is included. Collection Date See Comment [facility] Comment: Patient sample received may exceed specimen stability, based on the collection date electronically provided. When reviewing patient results, verify collection information and consider specimen stability before acting on any critical or panic results. 06/21/2024 3:00 AM EDT us Ed Carver MD LAB HISTORICA [id number] RESULTS Final Result Performing Organization Address [facility] de Phone Number [facility] [address] [place] [address] * CO2 (06/07/2024 3:00 AM EDT) Bicarbonate (CO2) 24 21 - 31 mEq/L [facility] 06/07/2024 3:00 AM EDT 06/10/2024 12:19 PM EDT us Ed Carver MD LAB BLOOD ORDERABLES Final Result Performing Organization Address [facility] de Phone Number [facility] [address] [place] [address] * PTH, Intact (06/05/2024 3:00 AM EDT) PTH, Intact 390 160 - 721 pg/mL [facility] Comment: Suggested (KDIGO) ESRD maintenance range is two to nine times the upper normal limit (80.1 pg/mL) for the laboratory. 06/05/2024 3:00 AM EDT 06/06/2024 1:01 PM EDT Ed Carver MD LAB BLOOD ORDERABLES Final Result Performing Organization Address [facility] de Phone Number [facility] [address] [place] [address] * (ABNORMAL) Hemoglobin A1c (06/05/2024 3:00 AM EDT) Hemoglobin A1C 5.9(H) <5.7 % [facility] Comment: Methodology: Enzymatic HbA1c (NGSP %) Suggested Diagnosis >6.4% Diabetic 5.7-6.4% Pre-Diabetic <5.7% Non-Diabetic Diabetic Glucose Control Evaluation: Therapeutic action suggested at >8.0% ADA recommends a glycemic goal of <7.0% 06/05/2024 3:00 AM EDT 06/06/2024 12:58 PM EDT Ed Carver MD LAB BLOOD ORDERABLES Final Result Performing Organization Address [facility] de Phone Number [facility] [address] [place] [address] * (ABNORMAL) Lipid panel (06/05/2024 3:00 AM EDT) Cholesterol 140 <200 mg/dL [facility] Comment: Optimal: <200 Borderline: 200-239 High Risk: >239 Triglycerides 62 <150 mg/dL [facility] Comment: Optimal: <150 Borderline High: 150-199 High: 200-499 Very High: >499 HDL 38(A) >59 mg/dL [facility] Comment: Optimal: >59 High Risk: <40 LDL-Calc 90 <100 mg/dL [facility] Comment: Optimal: <100 Above Optimal: 100-129 Borderline High: 130-159 High: 160-189 Very High: >189 VLDL Cholesterol Memo 12 <30 mg/dL [facility] Comment: Optimal: <30 Borderline High: 30-39 High: 40-99 Very High: >99 Chol/HDL Ratio 3.7(A) <3.3 [facility] Comment: Optimal: <3.3 High Risk: >6.2 06/05/2024 3:00 AM EDT 06/06/2024 1:01 PM EDT us Ed Carver MD LAB BLOOD ORDERABLES Final Result [facility] [address] [place] [address] from Last 3 Months Insurance [facility] ([id number]) * Guarantor: Shereen Taylor Account Type Relation to Patient Date of Phone Billing Address Personal/Family Self 1990 [address] [facility] ([id number]) [facility] ([id number]) [place] SOLOMON [id number] 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
--- NOTE | 2024-08-27 08:25 | PC.NURSE ---
Pt diaphoretic; POC checked by this RN reading Lo ; made aware and 1 amp D50% pushed and 1 mg Glucogon gv per MD; pt awake, conversing, asking for water and pain meds; confused as to why she's in the ER, oriented to self and ; will c collar removed by MD at bedside; will cont to monitor/tx per orders
[2024-08-27 08:29] LABS: Glucose, Whole Blood < 10 mg/dL (60-115)
[2024-08-27 08:42] LABS: Glucose, Whole Blood 93 mg/dL (60-115)
[2024-08-27 09:13] LABS: Glucose, Whole Blood 101 mg/dL (60-115)
--- NOTE | 2024-08-27 09:55 | PC.NURSE ---
Repeat POC BG 101; pt with multiple complaints of pain, feeling itchy , wants lunch, etc; pt with no hives or rash noted; MD made aware of numerous requests by pt; no orders at this time
[2024-08-27 10:02] LABS: Resp Syncy Virus RNA Qual PCR NEGATIVE (Negative); SARS COV2 PCR INHOUSE NEGATIVE (Negative)
--- NOTE | 2024-08-27 10:11 | PC.NURSE ---
Pt tolerating PO intake; vss@baseline; aware of elevated BP 196/95
--- NOTE | 2024-08-27 10:31 | PC.NURSE ---
Pt's BG POC 54; pt tolerating PO juice/rackers; MD ordered D50% x1 amp; pt medicated per orders; skin PWD; pt alert/awake
--- NOTE | 2024-08-27 11:24 | P.HPHOSP_ITS ---
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 EMS noted she was hypoglycemic and and administer glucagon 1 mg and D10 250 mL. Pt continued to be hypoglycemic with undetectable sugar in the ED 2 hours after presentation, and was given additional dextrose 25 mg x3 and glucagon 1 mg with good POC response. Pt was just discharged from the hospital yesterday after being newly diagnosed with inflammatory demyelinating disease, likely multiple sclerosis. Pt was given 5 days of high dose steroids which resulted in severe hyperglycemia with POC in the 700s. Pt was treated with both long-acting and short-acting insulin in the hospital. Overall blood sugars were improving by time of discharge, but pt refused BNP on the day of discharge. She was discharged home on insulin sliding scale which was to be maintained by patient's sister, as pt is blind and has long hx of medication noncompliance. Last night pt apparently administered 10 units of insulin without either checking her POC or consulting her sister, which likely led to her hypoglycemia this morning. Pt currently complains of all-over itchiness and diffuse head and back pain. Some nausea but no vomiting. Denies chest pain/pressure, palpitations. No significant abdominal pain. Denies shortness or breath, difficulty breathing, or cough. No fever. Reports went to dialysis yesterday In the ED pt was hypertensive up to 214/149, vitals otherwise stable and WNL. Labs were significant for leukocytosis 15.6 (likely secondary to steroids), potassium 3.2, creatinine 6.54, initial POC 65 but then undetectable 2 hours later, currently 159. Normocytic anemia improved from prior. Lactic acid WNL. Chronically elevated troponins flat and improved from prior. Pt also was castellon scanned with negative CT of head, C-spine, and abdomen/pelvis. CTA of chest showing right lower lobe pneumonia. EKG showing normal sinus rhythm with T-wave inversions in anterior lateral leads. Pt was treated by EMS with glucagon 1 mg and D10 250 mL, and in the ED with dextrose 25 mg x3, glucagon 1 mg, hydromorphone, and cefepime. Pt is admitted to the hospital for treatment and further evaluation of hypoglycemia likely secondary to medication noncompliance. Review of Systems 2 Review of Systems: Negative except for that which is stated in the [facility] Medical History ESRD on dialysis Hypoxia End stage renal disease on dialysis Chronic ulcer of right foot due to diabetes mellitus Chronic ulcer of left foot due to diabetes mellitus DM foot ulcer ESRD on hemodialysis Hypotonic neurogenic bladder Diabetic polyneuropathy Hypertensive emergency Decompensated heart failure Renal failure Hypertension, uncontrolled Medical non-compliance Pericarditis Unspecified hypertension, condition or complication Metabolic acidosis Gastroparesis End stage chronic kidney disease Chronic kidney disease Anemia Plantar ulcer of left foot MDD (major depressive disorder) CKD (chronic kidney disease) Hypertension Hyperkalemia Vomiting Chronic pain Non-compliance with renal dialysis End-stage renal disease (ESRD) Diabetic foot ulcer associated with type 2 diabetes mellitus Cardiomyopathy HFrEF (heart failure with reduced ejection fraction) delivery delivered Anemia in chronic kidney disease (CKD) CKD (chronic kidney disease) Abnormal finding on echocardiogram Elevated troponin Acute worsening of stage 3 chronic kidney disease Generalized edema Sepsis Cellulitis Pleural effusion Atypical chest pain Bone infection PAD (peripheral artery disease) Cellulitis and abscess of foot Osteomyelitis Asthma Depression with anxiety Diabetic retinopathy Blind right eye Diabetes Back pain Family History Mother Coronary artery disease Myocardial infarction Stroke Diabetes mellitus Father Myocardial infarction Surgical History Tubal ligation status Previous section Hx laparoscopic cholecystectomy Hx of surgical procedure (~09/11/23) 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 Social History Household Members: Family Household Members Other:: sister, brother, [id number] Housing: Apartment Housing Other:: Apartment, 1st floor Are you a primary critical care unit nurse to a significant other at home: No Unable to assess alcohol history related to: Unknown Alcohol intake: never Comment: refused camera Patient Tobacco Use Status: Never used Tobacco e-Cigarette/Vaping Use: Never Used Second Hand Smoke Exposure: No Have you been hit, kicked, punched, or otherwise hurt by someone within the past year? If so, by whom?: No Do you feel safe in your current relationship?: Yes Is there a partner from a previous relationship who is making you feel unsafe now?: No Are you made to feel afraid or neglected: No Advance Directives: Yes Advance Directives on File: Yes Advance Directives Date on File: 08/28/23 Do you have a plan to hurt others: No Plan Recently lost weight without trying: No Eating poorly because of decreased appetite: No Nutrition Risks: Recent weight gain Patient : No : No Poor oral hygiene: No service: No Current occupational status: unemployed and disabled Gender identity: Female Meds Allergies Allergy/AdvReac Type Severity Reaction Status Date / Time gabapentin Allergy Severe Facial Verified 08/27/24 06:05 Swelling tramadol Allergy Severe Facial Verified 08/27/24 06:05 Swelling vancomycin Allergy Severe Anaphylaxis Verified 08/27/24 06:05 azithromycin (From Zithromax) Allergy Intermediate Hives Verified 08/27/24 06:05 morphine (MORPHINE) Allergy Intermediate Itching Verified 08/27/24 06:05 Home Medications ?Medication ?Instructions ?Recorded ?Confirmed ?Last Taken ?Type albuterol sulfate 90 mcg/actuation 2 puff inhalation Q 6H PRN wheezing 01/15/24 08/27/24 08/18/24 History aerosol inhaler (Ventolin HFA) lidocaine 5 % topical patch 1 patch topical DAILY PRN Pain 01/15/24 08/27/24 02/24/24 History nitroglycerin 0.4 mg sublingual 0.4 mg sublingual D IRECTED PRN 01/15/24 08/27/24 Unknown History tablet Angina acetaminophen 325 mg tablet 650 mg PO Q4H PRN mild jamar n 03/11/24 08/27/24 Unknown History calcium carbonate (Tums) 200 mg PO TIDWM PRN Acid Ref lux 07/03/24 08/27/24 Unknown History insulin lispro 100 unit/mL See Protocol subcut QIDACHS 08/27/24 08/27/24 Unknown History subcutaneous pen (Humalog KwikPen (U-100) Insulin) oxycodone 5 mg tablet 5 mg PO TID PRN Pain 5 08/27/24 Unknown History Physical Exam 2 Vital Signs and Narrative: Vital Signs: Last Vital Signs Temp 97.8 F 08/27/24 08:52 Pulse 76 08/27/24 10:11 Resp 16 08/27/24 10:11 BP 196/95 H 08/27/24 10:11 Pulse Ox 98 08/27/24 10:11 O2 Del Method Room Air 08/27/24 10:11 BMI result Body Mass Index 50.6 General: AOx3, though unclear why she was brought into the hospital. no acute distress. Pt blind. Resp: CTA bilaterally CVS: S1, S2, RRR GI: +BS, no distention, no significant tenderness, guarding, or rebound tenderness Skin: Warm, dry. Neuro: Cranial nerves II-XII grossly intact bilaterally. Motor grossly intact bilaterally Extremities: No edema. Bilateral TMA. Psych: Appropriate affect Results Labs 08/27/24 06:15 08/27/24 06:15 Labs: Laboratory Results - last 24 hr 08/27/24 08/27/24 08/27/24 06:00 06:15 06:32 MCV 91.7 MCH 31.8 MCHC 34.7 RDW 17.1 H Plt Count 154 L MPV 11.4 Immature Gran % (Auto) 1.7 H Neut % (Auto) 78.1 H Lymph % (Auto) 7.6 L [place] % (Auto) 11.5 H Eos % (Auto) 1.0 Baso % (Auto) 0.1 Lymph # (Auto) 1.2 Oxford # (Auto) 1.8 H Eos # (Auto) 0.2 Baso # (Auto) 0.0 Abs Immat Gran (auto) 0.26 H Absolute Neuts (auto) 12.2 H Absolute Nucleated RBC 0.000 Nucleated RBC % (auto) 0.0 Smear Tech's Comments VERIFIED Anion Gap 18 Estim Creat Clear Calc 15.0 Estimated GFR 7 POC Glucose 65 122 H Random Glucose 252 H Calcium 6.2 L D Total Bilirubin 0.7 AST 17 ALT 12 Alkaline Phosphatase 135 H Total Creatine Kinase 75 Troponin I High Sens 102.0 H* Total Protein 6.8 Albumin 3.8 Beta HCG, Quant < 2 Influenza Type A (PCR) Influenza Type B (PCR) RSV RNA Qual (PCR) SARS-CoV-2 RNA (RT-PCR) 08/27/24 08/27/24 08/27/24 08:08 08:37 08:48 MCV MCH MCHC RDW Plt Count MPV Immature Gran % (Auto) Neut % (Auto) Lymph % (Auto) Oxford % (Auto) Eos % (Auto) Baso % (Auto) Lymph # (Auto) Oxford # (Auto) Eos # (Auto) Baso # (Auto) Abs Immat Gran (auto) Absolute Neuts (auto) Absolute Nucleated RBC Nucleated RBC % (auto) Smear Tech's Comments Anion Gap Estim Creat Clear Calc Estimated GFR POC Glucose < 10 L* 93 Random Glucose Calcium Total Bilirubin AST ALT Alkaline Phosphatase Total Creatine Kinase Troponin I High Sens 101.8 H* Total Protein Albumin Beta HCG, Quant Influenza Type A (PCR) NEGATIVE Influenza Type B (PCR) NEGATIVE RSV RNA Qual (PCR) NEGATIVE SARS-CoV-2 RNA (RT-PCR) NEGATIVE 08/27/24 09:10 MCV MCH MCHC RDW Plt Count MPV Immature Gran % (Auto) Neut % (Auto) Lymph % (Auto) Oxford % (Auto) Eos % (Auto) Baso % (Auto) Lymph # (Auto) Oxford # (Auto) Eos # (Auto) Baso # (Auto) Abs Immat Gran (auto) Absolute Neuts (auto) Absolute Nucleated RBC Nucleated RBC % (auto) Smear Tech's Comments Anion Gap Estim Creat Clear Calc Estimated GFR POC Glucose 101 Random Glucose Calcium Total Bilirubin AST ALT Alkaline Phosphatase Total Creatine Kinase Troponin I High Sens Total Protein Albumin Beta HCG, Quant Influenza Type A (PCR) Influenza Type B (PCR) RSV RNA Qual (PCR) SARS-CoV-2 RNA (RT-PCR) Assessment and Plan (1) Hypoglycemia: Status: Acute Plan Pt is a 34-year-old female with a PMH significant for?ESRD on HD //Sun, [id number]-[id number] 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 Pt is admitted to the hospital for treatment and further evaluation of hypoglycemia likely secondary to medication noncompliance. Hypoglycemia Noted by EMS at arrival, was given glucagon 1 mg and D10 250 mL Initial POC 65 and then undetectable 2 hours later Was given dextrose 25g x3 and glucagon 1mg in the ED Likely secondary to medication non-compliance: pt discharged yesterday on sliding scale insulin due to steroid-induced hyperglycemia. Sugars had been improving but pt refused labs prior to discharge. Pt is blind and did not check POC and just counted 10 clicks and then administered insulin Monitor POCs closely, keep on sliding scale, diabetic diet Question of RLL penumonia As noted on CT of chest Pt asymptomatic: no cough, SOB, difficulty breathing, or fever No concern for sepsis: leukocytosis secondary to high-dose steroids, no other SIRS, lactic acid WNL, pt hypertensive Pt started on broad-spectrum antibiotics in the ED Will treat with ceftriaxone and doxycycline, started 08/27/2024 Check procalcitonin, continue abx if appropriate Fall at home Pt castellon-scanned which was negative for acute traumatic injury ESRD on HD //Sun Nephrology consult, follows with [facility] Follow BMP Monitor on telemetry Elevated troponins Chronically elevated, currently flat No signs of ACS Monitor on telemetry Ciq-qvrsjio-fnzkwrwno type 2 diabetes With diabetic polyneuropathy/retinopathy Treat as above with sliding scale insulin, diabetic diet HTN Continue carvedilol, hydralazine Chronic hypoxemic respiratory failure Not in acute exacerbation Pt on 3-4 L NC at home HRrEF Continue carvedilol Treat with dialysis as above Chronic pain with opioid seeking behavior Pt prefers a mix of Dilaudid 1mg IV and benadryl IV Continue home oxycodone Avoid Dilaudid IV as much as possible Full Code Attending:?Dr. Shepherd DVT Prophylaxis: Heparin Pt will require a hospitalization of at least two nights for treatment of?hypoglycemia likely secondary to medication noncompliance. Given patient's significant comorbidities and hx of medication noncompliance, pt will require hospital level care for close monitoring of glucose levels and labs. Quality Stroke Does the patient have a stroke diagnosis?: No VTE Prior VTE?: No VTE Risk Level:: Medical - moderate - high VTE Device Contraindication: Treatment Not Indicated VTE Drug Contraindication: N/A - Med Ordered
[2024-08-27 11:35] LABS: Glucose, Whole Blood 159 mg/dL (60-115)
--- NOTE | 2024-08-27 12:11 | PHA.MEDREC ---
Addendum entered by Marly Campo RPh 08/27/24 12:22: MED REC REVIEWED BY [facility] Original Note: Pharmacy Consult ? Medication Reconciliation Pharmacy has completed the medication reconciliation. Spoke with pt confirmed she was just discharged with us yesterday (08-26) and stated she was DC'd on Humalog and confirmed she started it and is taking per a sliding scale QIDACHS. Pt also confirmed she got Oxycodone 5mg tabs filled for her last week and she got those and started those yesterday. Pt couldn't remember the last time she took her medications at this time when I asked her.
[2024-08-27 12:19] LABS: Troponin-I High Sensitivity 101.8 ng/L (<3.5-17.0)
[2024-08-27 13:10] LABS: Glucose, Whole Blood 152 mg/dL (60-115)
[2024-08-27 13:13] LABS: Procalcitonin 0.12 ng/mL
[2024-08-27] MEDS: oxyCODONE HCl Immed Release 5 MG TABLET PO (13:42)
[2024-08-27 13:53] LABS: Glucose, Whole Blood 54 mg/dL (60-115)
[2024-08-27 15:20] LABS: Glucose, Whole Blood 90 mg/dL (60-115)
[2024-08-27 16:42] LABS: Glucose, Whole Blood 86 mg/dL (60-115)
--- NOTE | 2024-08-27 17:11 | HO.WOUND ---
Wound Consult: Initial 34yr old female admitted to [facility] on 08/27/24 - See progress notes and H&P for detailed history.? This patient is known to this mortgage loan underwriter for frequent readmissions see chart for history was in fact discharged yesterday.? Wound consult for Bilateral lower foot wounds.? The below information and recommendations are based on my last assessment of her feet on 08/25/24. Left Heel? - Diabetic Wound - healing - almost fully resurfaced tissue - Skin prep applied no topical recommendations applied. Left lateral foot small resurfacing wound bed - Iodoflex applied. Left Plantar Diabetic Wound? - chronic open wound - no sough noted - No fluctuance no induration no warmth noted - Iodoflex applied. Left Medial Foot with pigmentaiton changes noted. No topical care needed at this time. Off load pressure and skin prep applied. Right Plantar Diabetic Wound? -open chronic wound bed - dry black dark epidermal layer noted. no induration no fluctance no odor noted - Iodoflex applied. Right Dorsal Diabetic Wound? - open partial thickness tissue loss - serosang drainage noted No induraiton no fluctance and no warmth noted - Iodoflex applied. Recommendations: 1. Turn and Reposition every 2 hours and as needed for patient comfort.? Use pillows or wedges to support off loading positions. 2. Off Load all bony prominences with use of pillows and heel boots if needed.? Apply Preventative foams where needed. ? 3. Monitor for incontinence and moisture control, use barrier creams when needed for prevention and treatment. 4. Provide adequate and supplemental nutrition.? 5. Order low air loss mattress. 6. When applicable maintain blood glucose levels per Providers order. Left foot and Right Foot open wounds - Elevate heels off of bed surface with pillows.? Cleanse with saline, pat dry. ?Apply Iodosorb / Iodoflex to wound bed cover with gauze, wrap and tape. ?Change every other day.?? Iodoflex left at bedside. Note the Iodoflex will be applied brown and over the course of time as the Iodine is absorbed into the wound bed the color will change to yellow / cream signifying time to replace.?? Iodoflex / Iodosorb is only available from wound care nurse. At time of discharge patient should switch to Durafiber to the wound bed and change every other day as well. Re-consult wound care Nurse for wound deterioration or wound changes.
[2024-08-27] MEDS: 0.9 % Sodium Chloride Flush 3 ML SYRINGE IVFLUSH (17:39)
[2024-08-27 21:10] LABS: Glucose, Whole Blood 128 mg/dL (60-115)
[2024-08-28] VITALS (7 sets, daily range): BP systolic 111–160; BP diastolic 56–82; PULSE 75–90; RESP 16–18; TEMP 36.1–37.2; O2SAT 95–99
[2024-08-28 07:44] LABS: Glucose, Whole Blood 68 mg/dL (60-115)
[2024-08-28 08:44] LABS: Glucose, Whole Blood 126 mg/dL (60-115)
--- NOTE | 2024-08-28 09:30 | MHC.CM.PN ---
CM attempted to meet with Patient in HD but she was fast asleep. CM left the IMM at bedside and a copy has been placed on the chart. Patient lives in an apartment with her Sister/HCP/ADMINISTRATIVE ASSOCIATE/Josy and she requires BLS transport to home @ dc. PCP is Dr. Maharaj and Patient attends HD [facility] @ [facility] and has home O2 from [facility]. Home/resume said services is the tentative plan and CM has initiated and will follow for dc planning.
[2024-08-28] MEDS: 0.9 % Sodium Chloride Flush 3 ML SYRINGE IVFLUSH ×3 (11:17→20:09)
[2024-08-28 12:09] LABS: Glucose, Whole Blood 138 mg/dL (60-115)
--- NOTE | 2024-08-28 14:08 | PM.PNNEP ---
Subjective Subjective Date of Service: 08/28/24 Interval history: pt seen and examined Physical Exam Vital Signs: Vital Signs: Last Vital Signs Temp 98.0 F 08/28/24 12:00 Pulse 86 08/28/24 12:00 Resp 17 08/28/24 12:00 BP 132/77 08/28/24 12:00 Pulse Ox 99 08/28/24 12:00 O2 Del Method Room Air 08/28/24 12:00 BMI result Body Mass Index 40.0 cvs: s1s2 Rs; cta Abd; soft Objective Data Labs 08/27/24 06:15 08/28/24 13:31 Labs: Laboratory Results - last 24 hr 08/27/24 08/27/24 08/27/24 15:15 16:36 21:06 POC Glucose 90 86 128 H 08/28/24 08/28/24 08/28/24 07:05 08:41 12:04 POC Glucose 68 126 H 138 H Microbiology Microbiology Results: Microbiology 08/27/24 11:04 Blood - Venous Blood Culture - Preliminary No growth after 24 hours. 08/27/24 11:05 Blood - Venous Blood Culture - Preliminary No growth after 24 hours. Procedures Date of Service Date of Service: 08/28/24 Assessment & Plan Assessment and plan (1) ESRD on dialysis: Status: Acute Plan Shereen Taylor is a 32-year-old female with PMH of ESRD on HD TTS (renal biopsy 2021: Advanced diabetic nephropathy with 70% glomera sclerosis, nodular sclerosis, severe interstitial fibrosis), nonischemic cardiomyopathy, chronic HFpEF EF 40-50%, T2DM, HTN, gastroparesis, asthma, blindness of right eye, and seizure disorder on [facility], admitted for fall and hypoglycemia 1. ESRD Patient dialyzes TTS at [facility] via [facility] 2. HTN / Volume Chronically, patient takes Coreg 12.5mg BID, hydralazine 50mg TID, losartan 50mg daily, 3. Nephrogenic Anemia 4. Secondary Hyperparathyroidism / MBD Recent admit for MS with lesions in mri - s/p high dose steroids Plan- - TTS inpt - - Continue Coreg 12.5mg BID, hydralazine 50mg TID - transfuse if hb < 7 , venofer and procrit - velphoro 500mg TID w/ meal - Renal diet - counselled pt to be compliant with meds Time Spent With Patient Time: Total time managing care of this patient today ____ minutes. Progress Note: Quality Stroke Does the patient have a stroke diagnosis?: No
[2024-08-28 14:16] LABS: Anion Gap 19 (12-20); Blood Urea Nitrogen 47 mg/dL (9-16); Calcium 7.5 mg/dL (8.4-10.2); Carbon Dioxide 22 mmol/L (22-29); Chloride 99 mmol/L (96-108); Creatinine Clr Calc Pharmacy 19.1; Estimated Glomerular Filt Rate 11; Potassium 4.7 mmol/L (3.3-5.1); Sodium 135 mmol/L (135-145)
[2024-08-28 16:12] LABS: Glucose, Whole Blood 151 mg/dL (60-115)
--- NOTE | 2024-08-28 17:09 | P.PNIM_ITS ---
Subjective Subjective Date of Service: 08/28/24 Interval History: Sugars normalized over the course of the day. No acute issues. Tolerating diet Review of Systems Denies chest pain Denies shortness of breath Denies nausea vomiting diarrhea Denies fever chills Physical Exam 2 Vital Signs: Vital Signs: Last Vital Signs Temp 99.0 F 08/28/24 15:13 Pulse 81 08/28/24 15:13 Resp 18 08/28/24 15:13 BP 111/56 L 08/28/24 15:13 Pulse Ox 95 08/28/24 15:13 O2 Del Method Room Air 08/28/24 15:13 BMI result Body Mass Index 40.0 Const: Other: Awake alert no acute distress Resp: Other: Clear to auscultation bilaterally no rales rhonchi or wheezes Cardio: Other: No S4; positive S1-S2; no S3 murmurs rubs or gallops GI: Other: Soft nontender nondistended normoactive bowel sounds Extrem: Other: Amputation site clean dry and intact ulcer noted dorsal aspect right lower extremity. No edema Objective Data Active Medications Acetaminophen (Acetaminophen 325 Mg Tablet) 650 mg PO Q6H PRN PRN Reason: Pain, Mild 1-3,fever,headache Albuterol Sulfate (Albuterol Sulfate 90 Mcg 8 Gm Inhaler) 2 puff INHALE Q6H PRN PRN Reason: Wheezing Calcium Carbonate (Calcium Carbonate 750 Mg Tab.Chew) 750 mg PO Q4H PRN PRN Reason: Heartburn Carvedilol (Carvedilol 12.5 Mg Tablet) 12.5 mg PO BID [facility]; Protocol Last Admin: 08/28/24 12:29 Dose: 12.5 mg Documented By: PARAG Ceftriaxone Sodium (Ceftriaxone Sodium 1 Gm Vial) 1 gm IVPUSH Q24H [facility] Last Admin: 08/27/24 21:25 Dose: 1 gm Documented By: BERNABE Dextrose (Dextrose 50 % 25 Gm/50 Ml Syringe) 25 gm IVPUSH Q15M PRN; Protocol PRN Reason: per Hypoglycemia Standing Ord. Diphenhydramine HCl (Diphenhydramine Hcl 50 Mg/Ml Vial) 25 mg IVPUSH Q6H PRN PRN Reason: Itching Last Admin: 08/28/24 11:14 Dose: 25 mg Documented By: PARAG Glucose (Glucose Gel 15 Gm Gel..Gram.) 15 gm PO Q15M PRN; Protocol PRN Reason: per Hypoglycemia Standing Ord. Heparin Sodium (Porcine) (Heparin Sodium,Porcine 5,000 Unit/Ml Vial) 5,000 unit SUBCUT Q8H [facility] Last Admin: 08/28/24 12:29 Dose: Not Given Documented By: PARAG Non-Admin Reason: Patient Refused Hydralazine HCl (Hydralazine Hcl 50 Mg Tablet) 50 mg PO TID [facility]; Protocol Last Admin: 08/28/24 16:59 Dose: Not Given Documented By: PARAG Non-Admin Reason: Previously Administered Hydromorphone HCl (Hydromorphone Hcl 1 Mg/Ml Syringe) 1 mg IVPUSH Q4H PRN; Protocol PRN Reason: Pain, Severe (Pain Scale 7-10) Last Admin: 08/28/24 14:09 Dose: 1 mg Documented By: PARAG Doxycycline Hyclate 100 mg/ (Sodium Chloride) 250 mls @ 166.67 mls/hr IV Q12H [facility] Insulin Human Lispro (Insulin Lispro 100 Unit/Ml 3 Ml Vial) 0 unit SUBCUT QIDACHS [facility]; Protocol Last Admin: 08/28/24 17:02 Dose: 2 unit Documented By: PARAG Lidocaine (Lidocaine 4 % Patch Adh..Patch) 1 patch TRANSDERMA DAILY PRN PRN Reason: Pain Magnesium Hydroxide (Milk Of Magnesia 30 Ml Oral.Susp) 30 ml PO DAILY PRN PRN Reason: Constipation Melatonin (Melatonin 3 Mg Tablet) 6 mg PO BEDTIME PRN PRN Reason: Insomnia Last Admin: 08/27/24 21:23 Dose: 6 mg Documented By: BERNABE Nitroglycerin (Nitroglycerin 0.4 Mg Tab.Subl) 0.4 mg SUBLINGUAL Q5MX3 PRN PRN Reason: Angina Ondansetron HCl (Ondansetron Hcl 4 Mg/2 Ml Vial) 4 mg IVPUSH Q8H PRN PRN Reason: Nausea and Vomiting Last Admin: 08/28/24 05:05 Dose: 4 mg Documented By: RONALD Oxycodone HCl (Oxycodone Hcl Immed Release 5 Mg Tablet) 5 mg PO TID PRN PRN Reason: Pain, Moderate(Pain Scale 4-6) Last Admin: 08/27/24 13:42 Dose: 5 mg Documented By: PRANEETH Sodium Chloride (0.9 % Sodium Chloride Flush 3 Ml Syringe) 3 ml IVFLUSH QSHIFT [facility] Last Admin: 08/28/24 17:03 Dose: 3 ml Documented By: PARAG Labs 08/27/24 06:15 08/28/24 13:31 Labs: Laboratory Results - last 24 hr 08/27/24 08/28/24 08/28/24 21:06 07:05 08:41 Anion Gap Estim Creat Clear Calc Estimated GFR POC Glucose 128 H 68 126 H Random Glucose Calcium 08/28/24 08/28/24 08/28/24 12:04 13:31 16:06 Anion Gap 19 Estim Creat Clear Calc 19.1 Estimated GFR 11 POC Glucose 138 H 151 H Random Glucose 141 H Calcium 7.5 L D Microbiology Microbiology Results: Microbiology 08/27/24 11:04 Blood Culture - Preliminary Blood - Venous No growth after 24 hours. 08/27/24 11:05 Blood Culture - Preliminary Blood - Venous No growth after 24 hours. 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 Pt is admitted to the hospital for treatment and further evaluation of hypoglycemia likely secondary to medication noncompliance. 1.Hypoglycemia in backdrop of type 2 diabetes -patient attempted to give own insulin. . . Accidental overdose of insulin -sugar stable at this time -switch to regular diet -would not utilized insulin upon discharge. . . Evaluate in a.m. 2.Question of RLL penumonia -ceftriaxone/doxycycline (2) -blood cultures negative times 24 hours 3.ESRD on HD / -no acute issues -follow up outpatient scheduled 4.HTN -acceptable control on current therapies -adjust as indicated 5.HRrEF -stable and well compensated Full Code Heparin Patient will require ongoing hospitalization to document stabilization of Quality Stroke Does the patient have a stroke diagnosis?: No VTE Prior VTE?: No VTE Risk Level:: Medical - moderate - high VTE Device Contraindication: Treatment Not Indicated VTE Drug Contraindication: N/A - Med Ordered
[2024-08-28 21:08] LABS: Glucose, Whole Blood 129 mg/dL (60-115)
[2024-08-29 03:49] VITALS: BP 109/44; PULSE 86; RESP 18; TEMP 36.2; O2SAT 96
[2024-08-29 07:38] LABS: Glucose, Whole Blood 85 mg/dL (60-115)
[2024-08-29 07:57] VITALS: BP 146/71; PULSE 91; RESP 18; TEMP 36.6; O2SAT 92
[2024-08-29] MEDS: 0.9 % Sodium Chloride Flush 3 ML SYRINGE IVFLUSH ×2 (08:17→22:52)
--- NOTE | 2024-08-29 10:53 | MHC.CM.PN ---
provider informed CM that pt is ready to DC, CM spoke with pt. to inform that DC is today, and BLS will be scheduled. Pt. stated to her nurse that she wants to appeal the DC.
[2024-08-29 11:51] LABS: Glucose, Whole Blood 117 mg/dL (60-115)
[2024-08-29 12:00] VITALS: BP 157/68; PULSE 94; RESP 18; TEMP 36.2; O2SAT 97
--- NOTE | 2024-08-29 12:28 | MHC.CM.PN ---
All documents for appeal have been sent it. Confirmation # is: [id number]
--- NOTE | 2024-08-29 13:01 | HO.PM.IMPN ---
Subjective Subjective Date of Service: 08/29/24 Interval History: No acute issues overnight. Sugars stabilized Review of Systems Denies chest pain Denies shortness of breath Denies nausea vomiting diarrhea Denies fever chills Physical Exam Vital Signs: Vital Signs: Last Vital Signs Temp 97.2 F 08/29/24 12:00 Pulse 94 08/29/24 12:00 Resp 18 08/29/24 12:00 BP 157/68 H 08/29/24 12:00 Pulse Ox 97 08/29/24 12:00 O2 Del Method Room Air 08/29/24 12:00 BMI result Body Mass Index 40.0 Const: Other: Awake alert no acute distress Resp: Other: Clear to auscultation bilaterally no rales rhonchi or wheezes Cardio: Other: No S4; positive S1-S2; no S3 murmurs rubs or gallops GI: Other: Soft nontender nondistended normoactive bowel sounds Extrem: Other: Amputation site clean dry and intact ulcer noted dorsal aspect right lower extremity. No edema Objective Data Active Medications Acetaminophen (Acetaminophen 325 Mg Tablet) 650 mg PO Q6H PRN PRN Reason: Pain, Mild 1-3,fever,headache Albuterol Sulfate (Albuterol Sulfate 90 Mcg 8 Gm Inhaler) 2 puff INHALE Q6H PRN PRN Reason: Wheezing Calcium Carbonate (Calcium Carbonate 750 Mg Tab.Chew) 750 mg PO Q4H PRN PRN Reason: Heartburn Carvedilol (Carvedilol 12.5 Mg Tablet) 12.5 mg PO BID [facility]; Protocol Last Admin: 08/29/24 08:24 Dose: Not Given Documented By: CHET Non-Admin Reason: Patient Refused Ceftriaxone Sodium (Ceftriaxone Sodium 1 Gm Vial) 1 gm IVPUSH Q24H [facility] Last Admin: 08/28/24 20:06 Dose: 1 gm Documented By: LISA Dextrose (Dextrose 50 % 25 Gm/50 Ml Syringe) 25 gm IVPUSH Q15M PRN; Protocol PRN Reason: per Hypoglycemia Standing Ord. Diphenhydramine HCl (Diphenhydramine Hcl 50 Mg/Ml Vial) 25 mg IVPUSH Q6H PRN PRN Reason: Itching Last Admin: 08/29/24 08:17 Dose: 25 mg Documented By: CHET Glucose (Glucose Gel 15 Gm Gel..Gram.) 15 gm PO Q15M PRN; Protocol PRN Reason: per Hypoglycemia Standing Ord. Heparin Sodium (Porcine) (Heparin Sodium,Porcine 5,000 Unit/Ml Vial) 5,000 unit SUBCUT Q8H [facility] Last Admin: 08/29/24 12:04 Dose: Not Given Documented By: CHET Non-Admin Reason: Patient Refused Hydralazine HCl (Hydralazine Hcl 50 Mg Tablet) 50 mg PO TID [facility]; Protocol Last Admin: 08/29/24 08:29 Dose: Not Given Documented By: CHET Non-Admin Reason: Patient Refused Hydromorphone HCl (Hydromorphone Hcl 1 Mg/Ml Syringe) 1 mg IVPUSH Q4H PRN; Protocol PRN Reason: Pain, Severe (Pain Scale 7-10) Last Admin: 08/29/24 10:12 Dose: 1 mg Documented By: CHET Doxycycline Hyclate 100 mg/ (Sodium Chloride) 250 mls @ 166.67 mls/hr IV Q12H [facility] Last Admin: 08/29/24 11:58 Dose: 166.67 mls/hr Documented By: CHET Insulin Human Lispro (Insulin Lispro 100 Unit/Ml 3 Ml Vial) 0 unit SUBCUT QIDACHS [facility]; Protocol Last Admin: 08/29/24 11:54 Dose: Not Given Documented By: CHET Non-Admin Reason: No Insulin Coverage Comments: POC 117 Lidocaine (Lidocaine 4 % Patch Adh..Patch) 1 patch TRANSDERMA DAILY PRN PRN Reason: Pain Magnesium Hydroxide (Milk Of Magnesia 30 Ml Oral.Susp) 30 ml PO DAILY PRN PRN Reason: Constipation Melatonin (Melatonin 3 Mg Tablet) 6 mg PO BEDTIME PRN PRN Reason: Insomnia Last Admin: 08/27/24 21:23 Dose: 6 mg Documented By: BERNABE Nitroglycerin (Nitroglycerin 0.4 Mg Tab.Subl) 0.4 mg SUBLINGUAL Q5MX3 PRN PRN Reason: Angina Ondansetron HCl (Ondansetron Hcl 4 Mg/2 Ml Vial) 4 mg IVPUSH Q8H PRN PRN Reason: Nausea and Vomiting Last Admin: 08/28/24 05:05 Dose: 4 mg Documented By: RONALD Oxycodone HCl (Oxycodone Hcl Immed Release 5 Mg Tablet) 5 mg PO TID PRN PRN Reason: Pain, Moderate(Pain Scale 4-6) Last Admin: 08/27/24 13:42 Dose: 5 mg Documented By: PRANEETH Sodium Chloride (0.9 % Sodium Chloride Flush 3 Ml Syringe) [facility] Last Admin: 08/29/24 08:17 Dose: 3 ml Documented By: CEHT Labs 08/27/24 06:15 08/28/24 13:31 Labs: Laboratory Results - last 24 hr 08/28/24 08/28/24 08/28/24 13:31 16:06 21:02 Anion Gap 19 Estim Creat Clear Calc 19.1 Estimated GFR 11 POC Glucose 151 H 129 H Random Glucose 141 H Calcium 7.5 L D 08/29/24 08/29/24 07:28 11:46 Anion Gap Estim Creat Clear Calc Estimated GFR POC Glucose 85 117 H Random Glucose Calcium Microbiology Microbiology Results: Microbiology 08/27/24 11:04 Blood Culture - Preliminary Blood - Venous No growth after 24 hours. 08/27/24 11:05 Blood Culture - Preliminary Blood - Venous No growth after 24 hours. 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 Pt is admitted to the hospital for treatment and further evaluation of hypoglycemia likely secondary to medication noncompliance. 1.Hypoglycemia in backdrop of type 2 diabetes -sugar stable at this time -switch to regular diet -acceptable for discharge without diabetic meds -patient appealing discharge. . . Await results 2.Question of RLL penumonia -ceftriaxone/doxycycline (3) -blood cultures negative times 24 hours 3.ESRD on HD //Sun -no acute issues -follow up outpatient scheduled 4.HTN -acceptable control on current therapies -adjust as indicated 5.HRrEF -stable and well compensated Full Code Heparin Patient will require ongoing hospitalization to document stabilization of Quality Stroke Does the patient have a stroke diagnosis?: No VTE Prior VTE?: No VTE Risk Level:: Medical - moderate - high VTE Device Contraindication: Treatment Not Indicated VTE Drug Contraindication: N/A - Med Ordered
[2024-08-29 15:53] VITALS: BP 144/62; PULSE 84; RESP 18; TEMP 36.2; O2SAT 96
[2024-08-29 19:25] VITALS: BP 165/86; PULSE 87; RESP 16; TEMP 36.6; O2SAT 97
[2024-08-29 23:08] VITALS: BP 152/68; PULSE 89; RESP 16; TEMP 36.3; O2SAT 94
[2024-08-30 03:15] VITALS: BP 142/56; PULSE 92; RESP 16; TEMP 36.1; O2SAT 97
[2024-08-30 07:46] LABS: Glucose, Whole Blood 90 mg/dL (60-115)
[2024-08-30 07:51] VITALS: BP 164/81; PULSE 88; RESP 18; TEMP 36.3; O2SAT 97
[2024-08-30] MEDS: 0.9 % Sodium Chloride Flush 3 ML SYRINGE IVFLUSH ×2 (09:05→15:46)
[2024-08-30 11:49] LABS: Glucose, Whole Blood 135 mg/dL (60-115)
[2024-08-30 11:53] VITALS: BP 155/83; PULSE 86; RESP 20; TEMP 36.6; O2SAT 97
[2024-08-30 13:09] LABS: Anion Gap 18 (12-20); Blood Urea Nitrogen 48 mg/dL (9-16); Carbon Dioxide 24 mmol/L (22-29); Chloride 101 mmol/L (96-108); Creatinine Clr Calc Pharmacy 17.5; Estimated Glomerular Filt Rate 10; Potassium 5.1 mmol/L (3.3-5.1); Sodium 138 mmol/L (135-145)
[2024-08-30 13:34] LABS: Calcium 8.4 mg/dL (8.4-10.2)
--- NOTE | 2024-08-30 14:14 | MHC.CM.PN ---
A message has been received from the [employer] that filed the discharge appeal yesterday. The patient has won the appeal. The MD was notified. The patient has been notified as well.
--- NOTE | 2024-08-30 14:39 | P.PNIM_ITS ---
Subjective Subjective Date of Service: 08/30/24 Interval History: Dialysis today. No acute issues overnight Review of Systems Denies chest pain Denies shortness of breath Denies nausea vomiting diarrhea Denies fever chills Physical Exam 2 Vital Signs: Vital Signs: Last Vital Signs Temp 97.9 F 08/30/24 11:53 Pulse 86 08/30/24 11:53 Resp 20 08/30/24 11:53 BP 155/83 H 08/30/24 11:53 Pulse Ox 97 08/30/24 11:53 O2 Del Method Room Air 08/30/24 11:53 BMI result Body Mass Index 40.0 Const: Other: Awake alert no acute distress Resp: Other: Clear to auscultation bilaterally no rales rhonchi or wheezes Cardio: Other: No S4; positive S1-S2; no S3 murmurs rubs or gallops GI: Other: Soft nontender nondistended normoactive bowel sounds Extrem: Other: Amputation site clean dry and intact ulcer noted dorsal aspect right lower extremity. No edema Objective Data Active Medications Acetaminophen (Acetaminophen 325 Mg Tablet) 650 mg PO Q6H PRN PRN Reason: Pain, Mild 1-3,fever,headache Albuterol Sulfate (Albuterol Sulfate 90 Mcg 8 Gm Inhaler) 2 puff INHALE Q6H PRN PRN Reason: Wheezing Calcium Carbonate (Calcium Carbonate 750 Mg Tab.Chew) 750 mg PO Q4H PRN PRN Reason: Heartburn Carvedilol (Carvedilol 12.5 Mg Tablet) 12.5 mg PO BID [facility]; Protocol Last Admin: 08/30/24 12:46 Dose: 12.5 mg Documented By: BJ Ceftriaxone Sodium (Ceftriaxone Sodium 1 Gm Vial) 1 gm IVPUSH Q24H [facility] Last Admin: 08/29/24 18:23 Dose: 1 gm Documented By: CHET Dextrose (Dextrose 50 % 25 Gm/50 Ml Syringe) 25 gm IVPUSH Q15M PRN; Protocol PRN Reason: per Hypoglycemia Standing Ord. Diphenhydramine HCl (Diphenhydramine Hcl 50 Mg/Ml Vial) 25 mg IVPUSH Q6H PRN PRN Reason: Itching Last Admin: 08/30/24 10:21 Dose: 25 mg Documented By: BJ Glucose (Glucose Gel 15 Gm Gel..Gram.) 15 gm PO Q15M PRN; Protocol PRN Reason: per Hypoglycemia Standing Ord. Heparin Sodium (Porcine) (Heparin Sodium,Porcine 5,000 Unit/Ml Vial) 5,000 unit SUBCUT Q8H [facility] Last Admin: 08/30/24 12:46 Dose: Not Given Documented By: BJ Non-Admin Reason: Patient Refused Hydralazine HCl (Hydralazine Hcl 50 Mg Tablet) 50 mg PO TID [facility]; Protocol Last Admin: 08/30/24 12:45 Dose: 50 mg Documented By: BJ Hydromorphone HCl (Hydromorphone Hcl 1 Mg/Ml Syringe) 1 mg IVPUSH Q4H PRN; Protocol PRN Reason: Pain, Severe (Pain Scale 7-10) Last Admin: 08/30/24 13:32 Dose: 1 mg Documented By: BJ Doxycycline Hyclate 100 mg/ (Sodium Chloride) 250 mls @ 166.67 mls/hr IV Q12H [facility] Last Admin: 08/30/24 12:45 Dose: 166.67 mls/hr Documented By: BJ Insulin Human Lispro (Insulin Lispro 100 Unit/Ml 3 Ml Vial) 0 unit SUBCUT QIDACHS [facility]; Protocol Last Admin: 08/30/24 12:14 Dose: Not Given Documented By: BJ Non-Admin Reason: No Insulin Coverage Lidocaine (Lidocaine 4 % Patch Adh..Patch) 1 patch TRANSDERMA DAILY PRN PRN Reason: Pain Magnesium Hydroxide (Milk Of Magnesia 30 Ml Oral.Susp) 30 ml PO DAILY PRN PRN Reason: Constipation Melatonin (Melatonin 3 Mg Tablet) 6 mg PO BEDTIME PRN PRN Reason: Insomnia Last Admin: 08/27/24 21:23 Dose: 6 mg Documented By: BERNABE Nitroglycerin (Nitroglycerin 0.4 Mg Tab.Subl) 0.4 mg SUBLINGUAL Q5MX3 PRN PRN Reason: Angina Ondansetron HCl (Ondansetron Hcl 4 Mg/2 Ml Vial) 4 mg IVPUSH Q8H PRN PRN Reason: Nausea and Vomiting Last Admin: 08/29/24 21:28 Dose: 4 mg Documented By: GONZALO Oxycodone HCl (Oxycodone Hcl Immed Release 5 Mg Tablet) 5 mg PO TID PRN PRN Reason: Pain, Moderate(Pain Scale 4-6) Last Admin: 08/27/24 13:42 Dose: 5 mg Documented By: PRANEETH Sodium Chloride (0.9 % Sodium Chloride Flush 3 Ml Syringe) [facility] Last Admin: 08/30/24 09:05 Dose: 3 ml Documented By: ROSA MARIAAV Labs 08/27/24 06:15 08/30/24 12:23 Labs: Laboratory Results - last 24 hr 08/30/24 08/30/24 08/30/24 07:42 11:45 12:23 Anion Gap 18 Estim Creat Clear Calc 17.5 Estimated GFR 10 POC Glucose 90 135 H Random Glucose 142 H Calcium 8.4 D Microbiology Microbiology Results: Microbiology 08/27/24 11:04 Blood Culture - Preliminary Blood - Venous No growth after 48 hours. 08/27/24 11:05 Blood Culture - Preliminary Blood - Venous No growth after 48 hours. 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 Pt is admitted to the hospital for treatment and further evaluation of hypoglycemia likely secondary to medication noncompliance. 1.Hypoglycemia in backdrop of type 2 diabetes -sugar stable at this time -switch to regular diet -acceptable for discharge without diabetic meds -patient appealing discharge. . . Appeal granted -we will discharge in a.m. 2.Question of RLL penumonia -ceftriaxone/doxycycline (4) -blood cultures negative times 48 hours 3.ESRD on HD //Sun -no acute issues -follow up outpatient scheduled 4.HTN -acceptable control on current therapies -adjust as indicated 5.HRrEF -stable and well compensated Full Code Heparin Patient will require ongoing hospitalization to document stabilization of Quality Stroke Does the patient have a stroke diagnosis?: No VTE Prior VTE?: No VTE Risk Level:: Medical - moderate - high VTE Device Contraindication: Treatment Not Indicated VTE Drug Contraindication: N/A - Med Ordered
[2024-08-30 15:42] LABS: Glucose, Whole Blood 150 mg/dL (60-115)
[2024-08-30 15:53] VITALS: BP 162/82; PULSE 91; RESP 20; TEMP 36.5; O2SAT 94
[2024-08-30 16:35] LABS: Glucose, Whole Blood 162 mg/dL (60-115)
[2024-08-30 16:40] VITALS: BP 128/78; PULSE 94; RESP 18; TEMP 36.1; O2SAT 98
[2024-08-30 21:32] VITALS: BP 185/81; PULSE 91; RESP 17; TEMP 35.9; O2SAT 98
[2024-08-30 21:32] LABS: Glucose, Whole Blood 212 mg/dL (60-115)
--- NOTE | 2024-08-30 22:45 | PC.NURSE ---
Pt's bedtime POC was 212. Pt refused to take insulin from this RN. MD Joseph was made aware of the pt's refusal of insulin. Will continue to monitor pt's POC.
[2024-08-31] VITALS: BP 131/60; PULSE 92; RESP 18; TEMP 36.2; O2SAT 98
[2024-08-31] MEDS: 0.9 % Sodium Chloride Flush 3 ML SYRINGE IVFLUSH ×2 (00:28→08:52)
[2024-08-31 04:00] VITALS: BP 130/59; PULSE 93; RESP 17; TEMP 36; O2SAT 97
[2024-08-31 06:52] VITALS: BP 140/72; PULSE 89; RESP 16; TEMP 36.7; O2SAT 96
[2024-08-31 07:05] LABS: Glucose, Whole Blood 114 mg/dL (60-115)
[2024-08-31 08:53] VITALS: BP 140/72; PULSE 89
[2024-08-31 11:34] LABS: Glucose, Whole Blood 130 mg/dL (60-115)
--- NOTE | 2024-08-31 11:45 | P.DS_ITS ---
DS: Providers Provider Date of Service: 08/31/24 Date of admission: 08/27/24 10:37 Date of discharge: 08/31/24 Primary care physician: Genevieve Casillas MD Consults: 08/27/24 12:50 Consult to Nephrology Routine Consulting Provider: [facility] 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 EMS noted she was hypoglycemic and and administer glucagon 1 mg and D10 250 mL. Pt continued to be hypoglycemic with undetectable sugar in the ED 2 hours after presentation, and was given additional dextrose 25 mg x3 and glucagon 1 mg with good POC response. Pt was just discharged from the hospital yesterday after being newly diagnosed with inflammatory demyelinating disease, likely multiple sclerosis. Pt was given 5 days of high dose steroids which resulted in severe hyperglycemia with POC in the 700s. Pt was treated with both long-acting and short-acting insulin in the hospital. Overall blood sugars were improving by time of discharge, but pt refused BNP on the day of discharge. She was discharged home on insulin sliding scale which was to be maintained by patient's sister, as pt is blind and has long hx of medication noncompliance. Last night pt apparently administered 10 units of insulin without either checking her POC or consulting her sister, which likely led to her hypoglycemia this morning. Pt currently complains of all-over itchiness and diffuse head and back pain. Some nausea but no vomiting. Denies chest pain/pressure, palpitations. No significant abdominal pain. Denies shortness or breath, difficulty breathing, or cough. No fever. Reports went to dialysis yesterday In the ED pt was hypertensive up to 214/149, vitals otherwise stable and WNL. Labs were significant for leukocytosis 15.6 (likely secondary to steroids), potassium 3.2, creatinine 6.54, initial POC 65 but then undetectable 2 hours later, currently 159. Normocytic anemia improved from prior. Lactic acid WNL. Chronically elevated troponins flat and improved from prior. Pt also was castellon scanned with negative CT of head, C-spine, and abdomen/pelvis. CTA of chest showing right lower lobe pneumonia. EKG showing normal sinus rhythm with T-wave inversions in anterior lateral leads. Pt was treated by EMS with glucagon 1 mg and D10 250 mL, and in the ED with dextrose 25 mg x3, glucagon 1 mg, hydromorphone, and cefepime. Pt is admitted to the hospital for treatment and further evaluation of hypoglycemia likely secondary to medication noncompliance. Hospital Course Patient initially admitted to telemetry and all glycemic meds stopped. She was given a regular diet and over the course of her admission her sugars remained stable. She was dialyzed as per scheduled and on 08/29 she was ready for discharge. Patient stated she could not go home because it was no one at her house. Stated sister was away. Call placed to sister who stated she was indeed away but there was somebody there to receive her. Patient then stated she did not want to go home and appealed her discharge. The following day 08/30 appeal was granted. She received dialysis as scheduled and on 08/31 is now ready for discharge. She will be discharged home on no diabetic medicine and will follow up with the PCP as scheduled. She will resume her dialysis course as outpatient Time Attestation Discharge Coordination Time (in mins): 35 Quality: Safe Use of Opioids Does Pt have an Active Cancer Diagnosis on the Problem List?: No Quality: Stroke Does the patient have a stroke diagnosis?: No Physical Exam Vital Signs: Vital Signs: Last Vital Signs Temp 98.1 F 08/31/24 06:52 Pulse 89 08/31/24 08:53 Resp 16 08/31/24 06:52 BP 140/72 H 08/31/24 08:53 Pulse Ox 96 08/31/24 06:52 O2 Del Method Room Air 08/31/24 06:52 BMI result Body Mass Index 40.0 Const: Other: Awake alert no acute distress Resp: Other: Clear to auscultation bilaterally no rales rhonchi or wheezes Cardio: Other: No S4; positive S1-S2; no S3 murmurs rubs or gallops GI: Other: Soft nontender nondistended normoactive bowel sounds Extrem: Other: Amputation site clean dry and intact ulcer noted dorsal aspect right lower extremity. No edema DS: Data Data Completed and Pending Completed studies during hospitalization [Text1]: Procedures Detachment at Left 2nd Toe, Complete, Open Approach (09/08/23) Detachment at Left 3rd Toe, Complete, Open Approach (09/08/23) Detachment at Left 4th Toe, Complete, Open Approach (09/08/23) Detachment at Right Foot, Partial 1st Ray, Open Approach (03/01/20) Detachment at Right Foot, Partial 2nd Ray, Open Approach (03/01/20) Detachment at Right Foot, Partial 3rd Ray, Open Approach (03/01/20) Detachment at Right Foot, Partial 4th Ray, Open Approach (03/01/20) Detachment at Right Foot, Partial 5th Ray, Open Approach (03/01/20) Drainage of Right Pleural Cavity, Percutaneous Approach (01/14/21) Excision of Left Foot Muscle, Open Approach (01/14/24) Excision of Left Foot Skin, External Approach (10/08/23) Excision of Left Foot Subcutaneous Tissue and Fascia, Open Approach (07/31/24) Excision of Right Foot Skin, External Approach (07/31/24) Excision of Stomach, Pylorus, Via Natural or Artificial Opening Endoscopic, Diagnostic (08/27/22) Fluoroscopy of Superior Vena Cava, Guidance (08/14/22) Insertion of Endotracheal Airway into Trachea, Via Natural or Artificial Opening (11/10/23) Insertion of Infusion Device into Right Atrium, Percutaneous Approach (02/25/24) Insertion of Infusion Device into Superior Vena Cava, Percutaneous Approach (05/25/24) Insertion of Infusion Device into Upper Vein, Percutaneous Approach (01/14/24) Insertion of Tunneled Vascular Access Device into Chest Subcutaneous Tissue and Fascia, Percutaneous Approach (05/25/24) Introduction of Vasopressor into Peripheral Vein, Percutaneous Approach (11/10/23) Isolation (11/10/23) Performance of Urinary Filtration, Intermittent, Less than 6 Hours Per Day (07/31/24) Removal of Infusion Device from Great Vessel, External Approach (01/14/21) Removal of Infusion Device from Great Vessel, Percutaneous Approach (05/25/24) Removal of Infusion Device from Heart, External Approach (01/14/24) Removal of Tunneled Vascular Access Device from Trunk Subcutaneous Tissue and Fascia, Open Approach (05/25/24) Respiratory Ventilation, Greater than 96 Consecutive Hours (11/10/23) Transfusion of Nonautologous Red Blood Cells into Peripheral Vein, Percutaneous Approach (11/10/23) Ultrasonography of Superior Vena Cava, Guidance (02/25/24) Labs on day of discharge: Laboratory Results - last 24 hr 08/30/24 08/30/24 08/30/24 11:45 12:23 15:15 Sodium 138 Potassium 5.1 Chloride 101 Carbon Dioxide 24 Anion Gap 18 BUN 48 H Creatinine 4.88 H* Estim Creat Clear Calc 17.5 Estimated GFR 10 POC Glucose 135 H 150 H Random Glucose 142 H Calcium 8.4 D 08/30/24 08/30/24 08/31/24 16:28 21:23 07:01 Sodium Potassium Chloride Carbon Dioxide Anion Gap BUN Creatinine Estim Creat Clear Calc Estimated GFR POC Glucose 162 H 212 H 114 Random Glucose Calcium 08/31/24 11:30 Sodium Potassium Chloride Carbon Dioxide Anion Gap BUN Creatinine Estim Creat Clear Calc Estimated GFR POC Glucose 130 H Random Glucose Calcium Preliminary micro results at discharge 08/27/24 11:04 Blood Culture - Preliminary Blood - Venous No growth after 48 hours. 08/27/24 11:05 Blood Culture - Preliminary Blood - Venous No growth after 48 hours. Discharge Plan Discharge Anticipated Discharge Date/Time: 08/31/24 11:15 Patient Disposition: Home Health Service Discharge Diagnosis: Hypoglycemia Referrals: Genevieve Gtz MD [Primary Care Provider, Internal Medicine] - 1 Week Discharge Medications: New doxycycline hyclate 100 mg tablet 100 mg PO BID 5 Days Qty: 10 0RF Continued carvedilol 12.5 mg Tablet 12.5 mg PO BID 90 Days Qty: 180 0RF Protocol: Hold for SBP/HR < HOLD for SBP < : 90 HOLD for HR < : 60 hydralazine 50 mg Tablet 50 mg PO TID 90 Days Qty: 270 0RF Protocol: Hold for SBP< HOLD for SBP < : 90 acetaminophen 325 mg tablet 650 mg PO Q4H PRN (Reason: mild pain) (DME) FreeStyle Lite Strips Strip Qty: 100 0RF Rx Instructions: Test four times a day or as directed. (DME) blood-glucose meter [FreeStyle Lite Meter] Kit Qty: 1 0RF Rx Instructions: As Directed (DME) pen needle, diabetic 32 gauge x 1/4 needle Qty: 100 0RF Rx Instructions: Use four times a day or as directed. (DME) lancets [FreeStyle Lancets] 28 gauge misc Qty: 100 0RF Rx Instructions: Test four times a day or as directed. lidocaine 5 % adhesive patch,medicated 1 patch topical DAILY PRN (Reason: Pain) nitroglycerin 0.4 mg tablet, sublingual 0.4 mg sublingual DIRECTED PRN (Reason: Angina) albuterol sulfate [Ventolin HFA] 90 mcg/actuation HFA aerosol inhaler 2 puff inhalation Q6H PRN (Reason: wheezing) calcium carbonate [Tums] 200 mg calcium (500 mg) Tablet,Chewable 200 mg PO TIDWM PRN (Reason: Acid Reflux) ondansetron 4 mg tablet,disintegrating 4 mg PO Q8H PRN (Reason: nausea and vomiting) Qty: 12 0RF oxycodone 5 mg tablet 5 mg PO TID PRN (Reason: Pain) Discontinued insulin lispro [Humalog KwikPen Insulin] 100 unit/mL insulin pen See Protocol SUBCUT QIDACHS Protocol: Insulin Correction Scale Less than or equal to 110 ---- Give (units): 0 111 to 150 Give (units): 0 151 to 200 Give (units): 2 201 to 250 Give (units): 4 251 to 300 Give (units): 6 301 to 350 Give (units): 8 Greater than 350 Give (units): 10 Call MD if Blood Glucose > : 350 Discharge Orders: Discharge Order (Routine); Ordered 08/31/24 Ordered By: Steve Shepherd Diet: Advance to usual diet Activity on Discharge: As tolerated Stand Alone Forms: Patient Portal Discharge page Print Language: Indonesian Care Plan Goals: Resume all your medicines as taken prior to hospitalization Health Concerns: Your insulin has been DC. Your sugars has been acceptable without it. Follow up with the PCP next available and they can decide going forward Plan of Treatment: Follow up with your dialysis as scheduled. Assessment: See discharge summary Patient Instructions: Hypoglycemia in a Person with Diabetes (DC)
--- NOTE | 2024-08-31 12:43 | MHC.CM.PN ---
Addendum entered by Yarely Moe 08/31/24 12:47: PT DECLINING [facility] Original Note: CM MET WITH PT WHO STATES SHE IS READY TO GO HOME TODAY SHE WILL DC WITH [facility] BLS TRANSPORT SCHEDULED FOR 1600 HOURS VIA [facility]
[2024-08-31 15:30] VITALS: BP 108/56; PULSE 88; RESP 18; TEMP 36.1; O2SAT 97
== END 2024-08-31 16:29 | disposition home health service (06) | DRG 637 ==
LOC: HO.ED 11:21 → HO.EDOVER 11:22 → HO.IMC 15:36 → HO.S3 08-30 15:12
PROVIDERS: Nurse Practitioner Acute Care; Student in an Organized Health Care Education/Training Program; Admitting Provider Internal Medicine; Emergency Provider Emergency Medicine Emergency Medical Services; PCP Student in an Organized Health Care Education/Training Program; Visit Provider Hospitalist
DX: E11.649 Type 2 diabetes mellitus with hypoglycemia without coma (principal); J18.9 Pneumonia, unspecified organism; I13.2 Hypertensive heart and chronic kidney disease with heart failure and with stage 5 chronic kidney disease, or end stage renal disease; I50.22 Chronic systolic (congestive) heart failure; J96.11 Chronic respiratory failure with hypoxia; N18.6 End stage renal disease; E11.22 Type 2 diabetes mellitus with diabetic chronic kidney disease; E11.42 Type 2 diabetes mellitus with diabetic polyneuropathy; E11.319 Type 2 diabetes mellitus with unspecified diabetic retinopathy without macular edema; G89.29 Other chronic pain; D63.1 Anemia in chronic kidney disease; N25.0 Renal osteodystrophy; G35 Multiple sclerosis; Z76.5 Malingerer [conscious simulation]; H54.8 Legal blindness, as defined in USA; Z20.822 Contact with and (suspected) exposure to COVID-19; Z99.2 Dependence on renal dialysis; Z91.158 Patient's noncompliance with renal dialysis for other reason; Z79.899 Other long term (current) drug therapy
CPT/HCPCS: 36415; 70450; 71250; 72125; 74176; 80048; 80053; 82550; 82947; 83605; 84145; 84484; 84702; 85025; 87040; 87637; 90999; 93005; 99285; J0692; J0696; J1171; J1200; J1271; J1610; J1644; J2405

== ENCOUNTER → 2024-08-27 06:11 | Outpatient (BNV) | payer OTHER, SELFPAY | PROVIDERS: Emergency Provider Emergency Medicine Emergency Medical Services; PCP Student in an Organized Health Care Education/Training Program; Visit Provider Internal Medicine Cardiovascular Disease | DX: I45.10 Unspecified right bundle-branch block (principal) | CPT/HCPCS: 93010 ==

== ENCOUNTER → 2024-08-27 07:03 | Outpatient (BNV) | payer OTHER, SELFPAY | PROVIDERS: Emergency Provider Emergency Medicine Emergency Medical Services; PCP Student in an Organized Health Care Education/Training Program; Visit Provider Radiology Vascular & Interventional Radiology | DX: R10.84 Generalized abdominal pain (principal); J18.1 Lobar pneumonia, unspecified organism; M54.2 Cervicalgia; W19.XXXA Unspecified fall, initial encounter; S09.90XA Unspecified injury of head, initial encounter | CPT/HCPCS: 70450; 71250; 72125; 74176 ==

== ENCOUNTER → 2024-08-27 10:37 | Outpatient (BNV) | payer OTHER, SELFPAY | PROVIDERS: Admitting Provider Internal Medicine; Emergency Provider Emergency Medicine Emergency Medical Services; PCP Student in an Organized Health Care Education/Training Program; Visit Provider Student in an Organized Health Care Education/Training Program | DX: E16.2 Hypoglycemia, unspecified (principal); J18.9 Pneumonia, unspecified organism | CPT/HCPCS: 99223; 99232; 99239 ==

== ENCOUNTER 2024-09-04 20:49 | Inpatient (IN) | payer OTHER, SELFPAY ==
[2024-09-04] VITALS (9 sets, daily range): BP systolic 136–171; BP diastolic 74–92; PULSE 94–103; RESP 16–22; TEMP 36.8; O2SAT 95–98; BMI 29.4
--- NOTE | ~2024-09-04 | MR_ITS ---
EXAMINATION: MR BRAIN WITHOUT CONTRAST CLINICAL INFORMATION: Acute stroke. Status post TPA. COMPARISON: August 20, 2024 and August 21, 2024. TECHNIQUE: MRI of the brain was obtained using routine sequences without contrast. FINDINGS: Patient's motion artifact. No restricted diffusion. No acute intracranial hemorrhage, mass effect, midline shift, hydrocephalus or herniation. Ventura-white matter differentiation is normal. Bilateral multifocal patchy and punctate perpendicularly oriented to the corpus callosum deep periventricular white matter hyperintense T2 FLAIR signal the most conspicuous at the pulvinar , left thalamus and right midline camilla/ventral medulla oblongata junction.. There is a hyperintense T2 FLAIR no restricted diffusion signal abnormality in the peripheral right cerebellar hemisphere. Flow-void signal within the main cerebral vessels is normal. There is a ocular deformity, left eyeball. There is signal abnormality within the posterior intraocular left eyeball. Sellar/suprasellar region demonstrated no gross masses. Craniocervical junction demonstrates normal position of the abdominal tonsils. MR/MR head/brain wo con IMPRESSION: No acute intracranial hemorrhage. Stable brain suggesting infratentorial and supratentorial compartment demyelinating plaques. Tumefactive active plaque in the left thalamus and or right ventral medulla oblongata /mid camilla junction should be considered. . Discussed with the requesting physician Dr. Chapin Casillas on September 05, 2024 at 12:45 PM Electronically signed by: Shadi Lopez MD 09/05/2024 12:46 PM EDT
--- NOTE | ~2024-09-04 | CT_ITS ---
CLINICAL HISTORY: Stroke Protocol CT angiography head and neck with contrast. 3D Postprocessing. Comparison: 08/18/2024 Findings: Aortic arch and cervical great vessels are patent with no aneurysm, dissection, hemodynamically significant stenoses, or occlusion. Intracranial arteries are patent. No aneurysm, dissection, hemodynamically significant stenoses, or occlusion. No abnormal intracranial enhancement. The visualized thyroid gland is unremarkable. No cervical mass or fluid collection. Lung apices clear. No acute fracture. IMPRESSION: Patent head and neck CTA. This document has been electronically signed by: Michael Vidales MD on 09/04/2024 22:42:42
--- NOTE | ~2024-09-04 | CT_ITS ---
CLINICAL HISTORY: Stroke Protocol CT head without contrast Comparison: 08/18/2024 Findings: No new intra-axial mass, midline shift, hydrocephalus, or acute hemorrhage. No significant atrophy-like change or white matter disease. There is no sinus or mastoid fluid. The orbits are within normal limits. No skull fracture. IMPRESSION: 1. No acute intracranial findings. This document has been electronically signed by: Michael Vidales MD on 09/04/2024 21:18:14
--- NOTE | ~2024-09-04 | XR_ITS ---
CLINICAL HISTORY: Stroke Protocol 1 view chest x-ray Comparison: CR/SR - XR CHEST 1V - 08/18/24 13:11 EDT Findings: The lungs are clear. Cardiomegaly. Right internal jugular tunnel dialysis catheter unchanged. No acute fracture. IMPRESSION: No consolidation. This document has been electronically signed by: Babak Roque MD on 09/04/2024 23:31:15
--- NOTE | ~2024-09-04 | FL_ITS ---
EXAMINATION: XR LUMBAR PUNCTURE CLINICAL INFORMATION: right side weakness; concern for MS COMPARISON: None available. TECHNIQUE: Informed consent was obtained from the patient. Timeout was performed. Using fluoroscopic guidance, the L3-4 interlaminar space was identified, marked, and the skin prepped and draped in sterile fashion. Skin and subcutaneous tissues were anesthetized with 1% lidocaine. Subsequently, a 20-gauge Quincke spinal needle was advanced into the thecal sac, and clear CSF was noted at the needle hub. Approximately 15 mL of clear CSF was obtained passively, and sent for laboratory analysis. The patient tolerated the procedure well. There were no immediate complications. 1 fluoroscopic spot image obtained. FLUOROSCOPY TIME: 8 seconds DOSE AREA PRODUCT: 218.1 uGy-m2 (microgray-meter squared) FL/FL guided lumbar puncture LP IMPRESSION: Successful L3-4 interlaminar lumbar puncture. 15 mL clear CSF obtained passively. No immediate complication. Electronically signed by: Damon Alanis MD 09/08/2024 03:10 PM EDT
--- NOTE | 2024-09-04 20:52 | ECG_ITS ---
Test Reason : weakness Blood Pressure : */* mmHG Vent. Rate : 102 BPM Atrial Rate : 102 BPM P-R Int : 168 ms QRS Dur : 138 ms QT Int : 400 ms P-R-T Axes : 62 -43 63 degrees QTcB Int : 521 ms Sinus tachycardia Possible Left atrial enlargement Left axis deviation Right bundle branch block T wave abnormality, consider lateral ischemia Abnormal ECG When compared with ECG of 27-Aug-2024 06:11, QT has shortened Referred By: Sylvia Saxena Electronically Signed By: Vinny Vera
[2024-09-04 21:00] LABS: Glucose, Whole Blood 216 mg/dL (60-115); Prothrombin Time Whole Bld POC 14.2 sec (11.1-13.5); ~PT, ~INR - Anti Coag Clinic 1.2 (0.9-1.1)
[2024-09-04] MEDS: iohexoL 350 MG/ML 100 ML INFUS..BTL 85 ML IV (21:36)
--- NOTE | 2024-09-04 22:02 | PC.NURSE ---
Multiple failed attempts at obtaining IV access by Dr. Saxena with ultrasound. Right side dialysis port in place. Received dialysis today. Arrived as a stroke alert with right sided weakness and 'heaviness'. Diarrhea/loose BM x2 since arrival to ED with foul odor. Dr. Saxena aware. This RN able to obtain bilateral 20g positional IV accesses to right forearm (posterior) & left AC. Both flush with ease, but are positional. Labs drawn and sent for analysis with 'stroke alert' stickers applied to biohazard bag. Lab also called for verbal confirmation of receipt of labs. Care ongoing by this RN.
[2024-09-04 22:04] LABS: MANUAL DIFF FLAG NO
[2024-09-04 22:05] LABS: Hematocrit 27.7 % (37.0-47.0); Hemoglobin 9.5 g/dl (12.0-16.0); Imm Gran Abs Auto 0.02 X10*3/uL (0.00-0.03); Imm Gran Pct Auto 0.3 % (0.0-0.4); Lymphocytes Absolute Auto 0.6 X10*3/uL (1.2-4.9); Mean Corpuscular HGB Conc 34.3 g/dl (31.0-35.0); Mean Corpuscular Hemoglobin 32.3 pg (27.0-33.0); Mean Corpuscular Volume 94.2 fL (80.0-98.0); NRBC Abs Auto 0.000 X10*3/uL (0.0-0.012); NRBC Pct Auto 0.0 /100WBC (0.0-0.2); Platelet Count 125 X10*3/uL (160-400); Red Blood Count 2.94 X10*6/uL (4.20-5.50); White Blood Count 6.4 X10*3/uL (4.8-10.8)
--- NOTE | 2024-09-04 22:07 | ED_ITS ---
HPI - Neuro Symptoms/Deficit General Chief Complaint: Stroke Stated Complaint: R sided weakness,R facial droop Time Seen by Provider: 09/04/24 20:52 History of Present Illness HPI Narrative: Patient is a 34-year-old female with a history of diabetes history of end-stage renal disease on dialysis. Received dialysis today. Has a history of opiate dependency. History of possible MS in the past. History of cerebral infarct. History of diabetic foot infections. Approximately 2 hours prior to arrival patient developed right-sided weakness. Claims arms and legs are both weak. There is no change in speech. There is minimal facial droop noted. EMS was called patient was sent in. Related Data Home Medications ?Medication ?Instructions ?Recorded ?Confirmed albuterol sulfate 90 mcg/actuation 2 puff inhalation Q 6H PRN wheezing 01/15/24 08/27/24 aerosol inhaler (Ventolin HFA) lidocaine 5 % topical patch 1 patch topical DAILY PRN Pain 01/15/24 08/27/24 nitroglycerin 0.4 mg sublingual 0.4 mg sublingual D IRECTED PRN 01/15/24 08/27/24 tablet Angina acetaminophen 325 mg tablet 650 mg PO Q4H PRN mild jamar n 03/11/24 08/27/24 calcium carbonate (Tums) 200 mg PO TIDWM PRN Acid Ref lux 07/03/24 08/27/24 oxycodone 5 mg tablet 5 mg PO TID PRN Pain 5 08/27/24 Previous Rx's ?Medication ?Instructions ?Recorded carvedilol 12.5 mg tablet 12.5 mg PO BID 90 days #180 tabs 12/16/23 hydralazine 50 mg tablet 50 mg PO TID 90 days #270 ta bs 12/16/23 ondansetron 4 mg disintegrating 4 mg PO Q8H PRN nausea and 07/06/24 tablet vomiting #12 tabs blood sugar diagnostic (FreeStyle #100 ea 08/26/24 Lite Strips) blood-glucose meter (FreeStyle #1 ea 08/26/24 Lite Meter kit) lancets 28 gauge (FreeStyle #100 ea 08/26/24 Lancets) pen needle, diabetic 32 gauge x #100 ea 08/26/24 1/ doxycycline hyclate 100 mg tablet 100 mg PO BID 5 days #10 tabs 08/31/24 Allergies Allergy/AdvReac Type Severity Reaction Status Date / Time gabapentin Allergy Severe Facial Verified 09/04/24 21:42 Swelling tramadol Allergy Severe Facial Verified 09/04/24 21:42 Swelling vancomycin Allergy Severe Anaphylaxis Verified 09/04/24 21:42 azithromycin (From Zithromax) Allergy Intermediate Hives Verified 09/04/24 21:42 morphine (MORPHINE) Allergy Intermediate Itching Verified 09/04/24 21:42 Review of Systems 2 Review of Systems: Positive right-sided weakness Yes all other systems are reviewed and are negative REPLACED BY [facility] Past Medical History Attestation statement: The following information was validated with the patient. Medical History ESRD on dialysis Hypoxia End stage renal disease on dialysis Chronic ulcer of right foot due to diabetes mellitus Chronic ulcer of left foot due to diabetes mellitus DM foot ulcer ESRD on hemodialysis Hypotonic neurogenic bladder Diabetic polyneuropathy Hypertensive emergency Decompensated heart failure Renal failure Hypertension, uncontrolled Medical non-compliance Pericarditis Unspecified hypertension, condition or complication Metabolic acidosis Gastroparesis End stage chronic kidney disease Chronic kidney disease Anemia Plantar ulcer of left foot MDD (major depressive disorder) CKD (chronic kidney disease) Hypertension Hyperkalemia Vomiting Chronic pain Non-compliance with renal dialysis End-stage renal disease (ESRD) Diabetic foot ulcer associated with type 2 diabetes mellitus Cardiomyopathy HFrEF (heart failure with reduced ejection fraction) delivery delivered Anemia in chronic kidney disease (CKD) CKD (chronic kidney disease) Abnormal finding on echocardiogram Elevated troponin Acute worsening of stage 3 chronic kidney disease Generalized edema Sepsis Cellulitis Pleural effusion Atypical chest pain Bone infection PAD (peripheral artery disease) Cellulitis and abscess of foot Osteomyelitis Asthma Depression with anxiety Diabetic retinopathy Blind right eye Diabetes Back pain Surgical History Tubal ligation status Previous section Hx laparoscopic cholecystectomy Hx of surgical procedure (~09/11/23) 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 Family History Family History Mother Coronary artery disease Myocardial infarction Stroke Diabetes mellitus Father Myocardial infarction Social History Social History Household Members: Family Household Members Other:: sister, brother, [id number] Housing: Apartment Housing Other:: Apartment, 1st floor Are you a primary personal care attendant to a significant other at home: No Unable to assess alcohol history related to: Unknown Alcohol intake: never Comment: refused camera Patient Tobacco Use Status: Never used Tobacco e-Cigarette/Vaping Use: Never Used Second Hand Smoke Exposure: No Advance Directives Date on File: 08/28/23 service: No Current occupational status: unemployed and disabled Gender identity: Female Physical Exam 2 Vital Signs: Vital Signs: Last Vital Signs Temp 98.2 F 09/04/24 21:00 Pulse 102 H 09/04/24 21:00 Resp 18 09/04/24 22:58 BP 169/77 H 09/04/24 21:00 Pulse Ox 97 09/04/24 21:00 O2 Del Method Room Air 09/04/24 21:00 BMI result Body Mass Index 29.4 Appearance: Alert. Oriented X3. No acute distress. Eyes: Pupils equal, round and reactive to light. ENT: Pharynx normal. Neck: Normal inspection. Neck supple. No lymph nodes noted. No crepitus CVS: Normal heart rate and rhythm. Pulses normal. Normal S1 and S2 Respiratory: No respiratory distress. Breath sounds normal. No Wheezing. No rales Abdomen: Soft and nontender. No rigidity. No distention. good BS x4 Skin: Skin warm and dry. Normal skin color. Normal skin turgor. Extremities: No lower extremity edema. Neurovascular intact to all extremities. No Lacerations. No Rash Neuro: Oriented X 3. Significant right upper extremity weakness. Can lift up against the ground. Does not have fine motor movement. Can not lift up right lower extremity against gravity. Medications Administered Discontinued Medications Generic Name Dose Route Start Last Admin Trade Name Freq PRN Reason Stop Dose Admin Hydromorphone HCl 1 mg 09/04/24 22:33 09/04/24 22:58 Hydromorphone Hcl 1 Mg/Ml Syringe IVPUSH 09/04/24 22:34 1 mg ONCE ONE Administration Protocol Iohexol 85 ml 09/04/24 21:36 09/04/24 21:36 Iohexol 350 Mg/Ml 100 Ml Infus..Btl IV 09/04/24 21:37 85 ml ONCE ONE Administration Tenecteplase 21 mg 09/04/24 22:00 09/04/24 22:10 Tenecteplase 50 Mg/10 Ml Kit IVPUSH 09/04/24 22:01 21 mg ONCE ONE Administration Medical Decision Making Medical Decision Making [facility] Narrative: Patient is 34 years old presented today with having right-sided weakness that had definitive time of onset about 19:00. Patient sugar was over 100 there is no evidence for hypoglycemia. Patient's NIH stroke scale was 6. Received dialysis earlier today. Received a CT head CTA. CT head by my interpretation was grossly negative for any acute evidence of bleeding. CTA is still pending. I discussed the case with Neurology. Agreed patient should receive TNK. We had some difficulty obtaining a line in the patient as she is a vasculopath. Have no good access available. We attempted ultrasound multiple times. Finally a line was established. We will be giving the tPA shortly. Refer the had to wait for 2 lines before the TNKase in be pushed. Hence the delay. On recheck patient's weakness is about the same. No changes. I discussed the case with the wastewater design engineer. We found a bed for her in the intensive care unit. Patient's VBG came back with a normal pH no evidence for acidosis. Patient is electrolytes are currently pending. Differential Diagnosis Differential Diagnoses: The differential diagnosis associated with the presentation includes CVA, MS, hypoglycemia, bleed Admission/Observation Consideration of admission/observation: Escalation of care including admission/observation considered Consult Healthcare Provider Management of the patient was discussed with: Apparel Cutter (Neurology, critical care) Lab Data [facility] Lab Attestation statement: I reviewed the patient's lab results. 09/04/24 21:58 09/04/24 21:58 Labs: Lab Results 09/04/24 09/04/24 09/04/24 Range/Units 20:52 21:58 23:00 WBC 6.4 (4.8-10.8) X10*3/uL RBC 2.94 L (4.20-5.50) X10*6/uL Hgb 9.5 L (12.0-16.0) g/dl Hct 27.7 L (37.0-47.0) % MCV 94.2 (80.0-98.0) fL MCH 32.3 (27.0-33.0) pg MCHC 34.3 (31.0-35.0) g/dl RDW 15.4 (11.0-16.0) % Plt Count 125 L (160-400) X10*3/uL MPV 11.4 (9.4-12.3) fL Immature Gran % (Auto) 0.3 (0.0-0.4) % Neut % (Auto) 71.0 (45-73) % Lymph % (Auto) 9.1 L (20-40) % Long % (Auto) 17.2 H (2-11) % Eos % (Auto) 2.2 (0-4) % Baso % (Auto) 0.2 (0-2) % Lymph # (Auto) 0.6 L (1.2-4.9) X10*3/uL Long # (Auto) 1.1 (0.1-1.2) X10*3/uL Eos # (Auto) 0.1 (0.0-0.4) X10*3/uL Baso # (Auto) 0.0 (0.0-0.2) X10*3/uL Abs Immat Gran (auto) 0.02 (0.00-0.03) X10*3/uL Absolute Neuts (auto) 4.5 (2.0-8.3) x10*3/uL Absolute Nucleated RBC 0.000 (0.0-0.012) X10*3/uL Nucleated RBC % (auto) 0.0 (0.0-0.2) /100WBC PT 12.8 H (10.9-12.4) SEC Whole Blood PT 14.2 H (11.1-13.5) sec INR 1.1 (0.9-1.1) Whole Blood INR 1.2 H (0.9-1.1) APTT 26.7 (26.0-36.8) SEC VBG pH 7.43 (7.32-7.43) VBG pCO2 51 mmHg VBG pO2 45 mmHg VBG HCO3 34 H (22-26) mmol/L VBG O2 Saturation 70.0 % VBG Base Excess 8.7 mmol/L POC Glucose 216 H (60-115) mg/dL Independent Interpretation I performed an independent interpretation of an: EKG (Sinus heart rate is 100 there is a right bundle branch block there is T-wave inversion over the anterior leads) Radiology Impression Discussion of test interpretation with radiology: I discussed test interpretation with the radiologist and I have reviewed the radiologist's reading. Radiologist Impression: I discussed the CT head findings with the radiologist. I reviewed the CT angio reading Chronic Conditions Patient?s care impacted by: Diabetes and Hypertension Peripheral vascular disease, MS Social Determinants Patient?s care significantly limited by Social Determinants of Health including: Problems related to primary support group NIH Stroke Scale Internal: Initial- Upon Arrival Level of Consciousness: Alert Level of Consciousness Questions: Answers both questions correctly Level of Consciousness Commands: Performs both tasks correctly Best Gaze: Normal Visual: No visual loss Facial Palsy: Minor paralyis Motor Arm (Right): Drift Motor Arm (Left): No drift Motor Leg (Right): Some effort against gravity Motor Leg (Left): No drift Limb Ataxia: Present in two limbs Sensory: Normal Best Language: No aphasia Dysarthia: Normal Extinction and Inattention: No abnormality Score: 6 Critical Care Time Critical Care Time Critical Care Time: Yes Total Critical Care Time: 45 Attestation: I have personally provided 45 minutes of critical care time exclusive of time spent on separately billable procedures. ?Time includes review of lab data, radiology results, discussion with consultants, and monitoring for potential decompensation. ?Interventions were performed as documented above Discharge Plan Discharge Clinical Impression: Acute CVA (cerebrovascular accident) Patient Disposition: Admitted As Inpatient Print Language: Vincentian
[2024-09-04 22:18] LABS: INTERNATIONAL NORM RATIO 1.1 (0.9-1.1); Partial Thromboplastin Time 26.7 SEC (26.0-36.8); Prothrombin Time 12.8 SEC (10.9-12.4); Stroke Lab Use COMPLETE
[2024-09-04 23:02] LABS: Venous Blood Gas Refer to POC result
[2024-09-04 23:05] LABS: VBG HCO3 34 mmol/L (22-26); VBG O2 % Saturation 70.0 %
[2024-09-04 23:58] LABS: Anion Gap 16 (12-20); Blood Urea Nitrogen 47 mg/dL (9-16); Calcium 8.5 mg/dL (8.4-10.2); Carbon Dioxide 27 mmol/L (22-29); Chloride 99 mmol/L (96-108); Cholesterol 169 mg/dL (<200); Creatinine Clr Calc Pharmacy 13.6; Estimated Glomerular Filt Rate 8; HDL Cholesterol 42 mg/dL (>40); Potassium 4.3 mmol/L (3.3-5.1); Sodium 138 mmol/L (135-145); Triglycerides 118 mg/dL (<150)
[2024-09-05] VITALS (30 sets, daily range): BP systolic 127–188; BP diastolic 60–101; PULSE 76–101; RESP 10–26; TEMP 36–37; O2SAT 93–100; BMI 29.0; BMI 29.5
--- NOTE | 2024-09-05 | PC.NURSE ---
assumed care of patient. patient awake alert and oriented speaking clear full sentences. patient updated on plan of care to be observed in ICU due to meds administered for stroke. patient states that her right arm feels heavy, right side she reports has less sensation to touch. waiting to be seen by gore inserter/admit orders.
--- NOTE | 2024-09-05 00:05 | CA_ITS ---
Transthoracic Echocardiogram Patient (Last, First, Middle): Shereen Taylor, Gender: Female Date of : 1990 Age: 34 Procedure Date: 09/05/2024 Procedure Type: Transthoracic Echocardiogram Location: ICU Height: 167.64 cm Weight: 82.56 kg BSA: 1.92 m2 Heart Rate: 97 bpm BP: 184 / 96 mmHg Glass Worker: CLEMENTINA Referring MD: Bryson SIGALA Symptoms: stroke Study Quality: Adequate w/Contrast ECG Rhythm: Sinus Conclusions: - Normal left ventricular cavity size. There is moderately increased left ventricular wall thickness. The left ventricular systolic function is low normal. The visually estimated ejection fraction is between 50-55%. - Mildly increased right ventricular cavity size. There is low normal right ventricular systolic function. - There is no evidence of a patent foramen ovale. Findings Procedure Information Contrast agent, definity, is being given per protocol without apparent complications. Left Ventricle Normal left ventricular cavity size. There is moderately increased left ventricular wall thickness. The left ventricular systolic function is low normal. The visually estimated ejection fraction is between 50-55%. There is no evidence of regional wall motion abnormalities. Diastolic function is indeterminate on the basis of available data. Right Ventricle Mildly increased right ventricular cavity size. There is low normal right ventricular systolic function. Atria The left atrium is moderately dilated. There is no evidence of a patent foramen ovale. The right atrium is mildly dilated. Aortic Valve There is a normal trileaflet aortic valve. There is no aortic valve stenosis. There is no aortic valve regurgitation. Mitral Valve The mitral valve appears normal. There is trace mitral valve regurgitation. There is no mitral valve stenosis. Pulmonic Valve The pulmonic valve is likely normal. Tricuspid Valve Normal tricuspid valve structure. There is trace tricuspid valve regurgitation. Normal right atrial pressure. There is no evidence of pulmonary hypertension. Great Vessels All visible segments of the aorta are normal in size. The visualized portions of the pulmonary artery and branches are normal. Venous The inferior vena cava is normal in size and collapses greater than 50% with inspiration. Pericardium/Pleural There is a trivial pericardial effusion. Prior Study Comparison Changes noted compared to prior study dated: 05/30/2024. EF 50-55% Recommendations, Care & Conclusions Consider a MARVIN if clinically appropriate. Measurements 2D Linear Measurements IVSd: 1.27 0.6-0.9/0.6-1.0 cm LVIDd: 4.90 3.9-5.3/4.2-5.9 cm LVIDd Index: 2.55 2.4-3.2/2.2-3.1 cm/m2 LVIDs: 3.71 2.0-3.6 cm LVPWd: 1.32 0.7-1.1 cm LA Diam: 4.50 2.7-3.8/3.0-4.0 cm LAIDs Index: 2.34 1.5-2.3 cm/m2 LV Mass: 314.64 67-162/88-224 g LV Mass Index: 163.88 43-95/49-115 g/m2 LVOT Diam: 2.10 3.0+(-)1.3 cm 2D Systolic Function EF 4C: 51.60 >55% EF 2C: 52.00 >55% EF BiP: 50.50 >55% Mitral Valve E'Lateral: 5.00 E'Medial: 3.70 Aortic Valve AoV Pk Pietro: 1.45 AoV Mn Pietro: 1.00 AoV VTI: 0.28 AoV Pk Grad: 8.00 Aov Mn Grad: 5.00 ANDREA Cont.VTI: 2.37 LVOT LVOT Pk Pietro: 1.07 LVOT Mn Pietro: 0.82 LVOT VTI: 0.19 LVOT Pk Grad: 5.00 LVOT Mn Grad: 3.00 LVOT Diam: 2.10 LVOT Area: 3.46 Diastolic Function E'Medial: 3.70 E' Laterial: 5.00 Right Ventricle TAPSE (mm): 18.30 TVS' Pietro: 8.81 Tricuspid Valve TR Pk Pietro: 2.09 TR Pk Grad: 17.00 RA Press: 3.00 RVSP: 20.00 Great Vessels Aorta Sinus of Valsalva: 3.00 2.0-3.5 cm Ao Asc: 3.20 2.1-3.4 cm Ao Arch: 3.10 Pulmonary Valve PV Pk Pietro: 1.03 Peak PV Grad: 4.00 Updated in Other Vendor System with Status of Final Vinny Vera MD electronically signed on 09/06/2024 9:31:15 PM with status of Final
[2024-09-05 00:14] LABS: Troponin-I High Sensitivity 135.5 ng/L (<3.5-17.0)
--- OUTSIDE RECORDS SUMMARY | 2024-09-05 00:47 | XMS_ITS | Clinical Summary ---
Author Organization [facility] Address [address] [place] [address] Care Team Providers Care Assistant Director Of Security Name Role Phone Betty Nugent MD Primary Care Provider [phone] Surgical History Surgery Date Site/Laterality Comments SECTION [...] - 2023-2 5 season) 2023 Influenza Vaccine (#1) 2024 HIB Vaccines Aged Out No longer [...] and At-Risk Patients (6 to 49 Years) Aged Out No longer eligi ble based on patient's age to complete this topic RSV Immunization Patients Un rosamaria 20 months Aged Out No longer eligible b ased on patient's age to complete this topic Varicella Vaccines Aged Out No longer eligible based on patient's age to complete this topic Care Teams Assistant Director Of Security Relationship Specialty Start Date End Date Betty Nugent MD [address] PCP - General Internal Medicine 01/10/18
--- OUTSIDE RECORDS SUMMARY | 2024-09-05 00:47 | XMS_ITS | Clinical Summary ---
Author Organization [facility] Address [address] [address] Phone Care Team Providers Care Supervisor [employer] Name Role Phone Katlyn Manzanofer Primary Care [...] 08/14/2024 Treatment [facility] [address] [phone] Ed Carver MD End stage renal disease; Dependence on renal dialysis 08/12/2024 [facility] in Dialysis Clinic [facility] [address] [phone] Ed Carver MD 08/12/2024 Treatment [facility] [address] [phone] Ed Carver MD End stage renal disease; Dependence on renal dialysis 07/24/2024 Treatment [facility] [address] [phone] Ed Carver MD End stage renal disease; Dependence on renal dialysis 07/19/2024 Treatment [facility] [address] [phone] Ed Carver MD End stage renal disease; Dependence on renal dialysis 07/08/2024 [facility] in Dialysis Clinic [facility] [address] [phone] Ed Carver MD 07/08/2024 Treatment [facility] [address] [phone] Ed Carver MD End stage renal disease; Dependence on renal dialysis 07/03/2024 [facility] Only [facility] [address] [phone] Ed Carver MD 07/01/2024 Treatment [facility] [address] [phone] Ed Carver MD End stage renal disease; Dependence on renal dialysis 06/19/2024 Treatment [facility] [address] [phone] Ed Carver MD End stage renal disease; Dependence on renal dialysis 06/17/2024 Treatment [facility] [address] [phone] Ed Carver MD End stage renal disease; Dependence on renal dialysis 06/14/2024 Treatment [facility] [address] [phone] Ed Carver MD End stage renal disease; Dependence on renal dialysis 06/07/2024 Treatment [facility] [address] [phone] Ed Carver MD End stage renal disease; [...] Exam 02/21/2022 Diabetes: Hemoglobin A1C 09/04/2024 025, 06/05/2024, 03/07/2024, Additional history exists Influenza Vaccine (#1) 2024 09/30/2016 Procedures Procedure Name Priority Date/Time Associated Diagnosis Comments HEMOGLOBIN A1C Routine 09/02/2024 3:00 AM EDT HEPATITIS C ABS W/REFLEX RNA DETECTR Routine 09/02/2024 3:00 AM EDT CONFIRMATION TEST HCV Routine 09/02/2024 3:00 AM EDT HEPATITIS B SURFACE ANTIGEN W/REFL CONFIRM Routine 09/02/2024 3:00 AM EDT PROTEIN, TOTAL, SERUM Routine 09/02/2024 3:00 AM EDT TRANSFERRIN SATURATION Routine 3:00 AM EDT ELECTROLYTE PANEL Routine 09/02/2024 3:0 0 AM EDT LIPID PANEL Routine 09/02/2024 3:00 AM EDT MAGNESIUM Routine 09/02/2024 3:00 AM EDT LACTATE DEHYDROGENASE Routine 09/02/2024 3:00 AM EDT LIH (HC) Routine 09/02/2024 3:00 AM EDT GLUCOSE, RANDOM Routine 09/02/2024 3:00 AM EDT CREATININE, SERUM Routine 09/02/2024 3:0 0 AM EDT BUN/CREATININE RATIO Routine 09/02/2024 3:00 AM EDT BILIRUBIN, TOTAL Routine 09/02/2024 3:00 AM EDT AST Routine 09/02/2024 3:00 AM EDT ALT Routine 09/02/2024 3:00 AM EDT ALKALINE PHOSPHATASE Routine 09/02/2024 3:00 AM EDT CALCIUM PHOSPHORUS PRODUCT, ADJUSTED (HC) Routine 09/02/2024 3:00 AM EDT PTH, INTACT Routine 09/02/2024 3:00 AM EDT FERRITIN Routine 09/02/2024 3:00 AM EDT CBC AND DIFFERENTIAL Routine 09/02/2024 3:00 AM EDT KT/V NATURAL LOG, URR (HC) Routine 09/02/2024 3:00 AM EDT HEPATITIS B SURFACE ANTIGEN [...] DATE (HC) Routine 06/07/2024 3:00 AM EDT from Last 3 Months Results * Confirmation Test HCV (09/02/2024 3:00 AM EDT) Hep C Ab Confirmation Not needed [facility] 09/02/2024 3:00 AM EDT 09/03/2024 2:33 PM EDT us Ed Paramasivam MD LAB BLOOD ORDERABLES Final Result Performing Organization Address [facility] de Phone Number [facility]PS [facility] [address] [place] [address] * LIH (09/02/2024 3:00 AM EDT) Only the most recent of5 resultswithin the time period is included. Lipemia Normal Normal [facility] Icterus Normal Normal [facility] Hemolysis Normal Normal [facility] 09/02/2024 3:00 AM EDT 09/03/2024 2:17 PM EDT us Ed Carver MD LAB HISTORICA [id number] RESULTS Final Result Performing Organization Address [facility] de Phone Number [facility] [address] [place] [address] * (ABNORMAL) Kt/V Natural Log, URR (09/02/2024 3:00 AM EDT) Only the most recent of3 resultswithin the time period is included. Treatment Time 181 min [facility] Pre-Weight, lb 85.6 kg [facility] Post-Weight, lb 81.8 kg [facility] Ultrafiltration Rate 15(H) <=13 mL/kg/hr [facility] Comment: Recommend achieving Ultrafiltration Rate (UFR) <=10 mL/kg/hr References: Estelle GARCIA et al. Kidney Int. 2010; 79(2):250-257 BUN 97(H) 7 - 25 mg/dL [facility] BUN Post Dialysis 31(H) 7 - 25 mg/dL [facility] UREA REDUCTION RATIO (%) 68 >=65 % [facility] Kt/V Natural Log 1.35 >=1.2 [facility] 09/02/2024 3:00 AM EDT 09/03/2024 2:17 PM EDT us Ed Carver MD LAB HISTORICA [id number] RESULTS Final Result Performing Organization Address [facility] Co de Phone Number [facility] [address] [place] [address] * (ABNORMAL) Calcium Phosphorus Product, Adjusted (09/02/2024 3:00 AM EDT) Only the most recent of3 resultswithin the time period is included. Pathologist [facility] Albumin 4.0 3.6 - 5.4 g/dL [facility] Calcium 7.6(L) 8.6 - 10.3 mg/dL [facility] Phosphorus, Serum 10.4(H) 2.5 - 5.0 mg/dL [facility] Ca*PO4 79.0(A) <55.0 mg2/dL2 [facility] Calcium, Adjusted Total 7.6(L) 8.6 - 10.3 mg/dL [facility] CA*PO4 CORRCTD 79.0(A) <55.0 mg2/dL2 [facility] 09/02/2024 3:00 AM EDT 09/03/2024 2:17 PM EDT Ed Carver MD LAB HISTORICA [id number] RESULTS Final Result [facility] [address] [place] [address] * HEPATITIS C ABS W/REFLEX RNA DETECTR (09/02/2024 3:00 AM EDT) [facility] Hep C Virus Ab Non-Reacti ve Non-Reacti ve [facility] 09/02/2024 3:00 AM EDT 09/03/2024 2:17 PM EDT Ed Carver MD LAB HISTORICA [id number] RESULTS Final Result Performing Organization Address City/[facility]/ZIP Co de Phone Number [facility] [address] [place] [address] * Hepatitis B Surface Ag w/Reflex Confirmation (09/02/2024 3:00 AM EDT) Only the most recent of3 resultswithin the time period is included. [facility] Hep B Surface Antigen Negative Negative [facility] 09/02/2024 3:00 AM EDT 09/03/2024 2:17 PM EDT us Ed Carver MD LAB BLOOD ORDERABLES Final Result Performing Organization Address [facility] Co de Phone Number [facility] [address] [place] [address] * BUN/CREATININE RATIO (09/02/2024 3:00 AM EDT) Only the most recent of3 resultswithin the time period is included. BUN/Creatinine Ratio 10.8 <=23.0 [facility] 09/02/2024 3:00 AM EDT 09/03/2024 2:17 PM EDT us Ed Carver MD LAB HISTORICA [id number] RESULTS Final Result Performing Organization Address [facility] de Phone Number [facility] [address] [place] [address] * (ABNORMAL) TSAT (09/02/2024 3:00 AM EDT) Only the most recent of3 resultswithin the time period is included. Pathologist [facility] Iron 42(L) 50 - 170 ug/dL [facility] Transferrin 173(L) 250 - 380 mg/dL [facility] TIBC 242 211 - 406 ug/dL [facility] Iron Saturation (TSat) 17(L) 22 - 52 % [facility] 09/02/2024 3:00 AM EDT 09/03/2024 2:17 PM EDT us Ed Carver MD LAB BLOOD ORDERABLES Final Result Performing Organization Address [facility] Co de Phone Number [facility] [address] [place] [address] * (ABNORMAL) CBC and Differential (09/02/2024 3:00 AM EDT) Only the most recent of3 resultswithin the time period is included. Pathologist [facility] DIFFERENTIAL MANUAL, 2 Not Indicated [facility] White Blood Cells 8.8 4.0 - 10.0 K/uL [facility] RBC 2.62(L) 3.93 - 5.22 M/uL [facility] Hgb 8.2(L) 11.2 - 15.7 g/dL [facility] Hemoglobin x 3 24.6(L) 33.6 - 47.1 g/dL [facility] Hematocrit 25.7(L) 34.1 - 44.9 % [facility] MCV 98.1(H) 79.4 - 94.8 fL [facility] MCH 31.3 25.6 - 32.2 pg [facility] MCHC 31.9(L) 32.2 - 35.5 g/dL [facility] RDW 15.9(H) 11.7 - 14.4 % [facility] Platelets 124(L) 182 - 369 K/uL [facility] Neutrophils Relative 78.4(H) 34.0 - 71.1 % [facility] Lymphocytes Relative 8.5(L) 19.3 - 51.7 % [facility] Monocytes 10.5 4.7 - 12.5 % [facility] Eosinophils Relative 2.1 0.7 - 5.8 % [facility] Basophils Relative 0.0(L) 0.1 - 1.2 % [facility] Immature Granulocytes 0.5 0.0 - 1.0 % [facility] 09/02/2024 3:00 AM EDT 09/03/2024 2:33 PM EDT us Ed Carver MD LAB BLOOD ORDERABLES Final Result Performing Organization Address [facility] Co de Phone Number [facility] [address] [place] [address] * ALT (09/02/2024 3:00 AM EDT) Only the most recent of3 resultswithin the time period is included. ALT (SGPT) 35 10 - 49 U/L [facility] 09/02/2024 3:00 AM EDT 09/03/2024 2:17 PM EDT Ed Carver MD LAB BLOOD ORDERABLES Final Result Performing Organization Address [facility]/ZIP Co de Phone Number [facility] [address] [place] [address] * (ABNORMAL) AST (09/02/2024 3:00 AM EDT) Only the most recent of3 resultswithin the time period is included. AST (SGOT) 46(H) <34 U/L [facility] 09/02/2024 3:00 AM EDT 09/03/2024 2:17 PM EDT Ed Carver MD LAB BLOOD ORDERABLES Final Result Performing Organization Address [facility] de Phone Number [facility] [address] [place] [address] * Protein, total (09/02/2024 3:00 AM EDT) Only the most recent of3 resultswithin the time period is included. Total Protein 7.0 6.4 - 8.9 g/dL [facility] 09/02/2024 3:00 AM EDT 09/03/2024 2:17 PM EDT Ed Carver MD LAB BLOOD ORDERABLES Final Result Performing Organization Address [facility] Co de Phone Number [facility] [address] [place] [address] * (ABNORMAL) Alkaline phosphatase (09/02/2024 3:00 AM EDT) Only the most recent of3 resultswithin the time period is included. Alkaline Phosphatase 217(H) 46 - 116 U/L [facility] 09/02/2024 3:00 AM EDT 09/03/2024 2:17 PM EDT us Ed Carver MD LAB BLOOD ORDERABLES Final Result Performing Organization Address [facility] Co de Phone Number [facility] [address] [place] [address] * PTH, Intact (09/02/2024 3:00 AM EDT) PTH, Intact 686 160 - 721 pg/mL [facility] Comment: Suggested (KDIGO) ESRD maintenance range is two to nine times the upper normal limit (80.1 pg/mL) for the laboratory. 09/02/2024 3:00 AM EDT 09/03/2024 2:17 PM EDT Ed Carver MD LAB BLOOD ORDERABLES Final Result Performing Organization Address City/[facility]/ZIP Co de Phone Number [facility] [address] [place] [address] * Magnesium (09/02/2024 3:00 AM EDT) Only the most recent of3 resultswithin the time period is included. Magnesium 2.4 1.9 - 2.7 mg/dL [facility] 09/02/2024 3:00 AM EDT 09/03/2024 2:17 PM EDT Ed Carver MD LAB BLOOD ORDERABLES Final Result Performing Organization Address [facility] Co de Phone Number [facility] [address] [place] [address] * (ABNORMAL) Lactate dehydrogenase (09/02/2024 3:00 AM EDT) Only the most recent of3 resultswithin the time period is included. LDH 339(H) 120 - 246 U/L [facility] 09/02/2024 3:00 AM EDT 09/03/2024 2:17 PM EDT Ed Carver MD LAB BLOOD ORDERABLES Final Result Performing Organization Address [facility] Co de Phone Number [facility] [address] [place] [address] * (ABNORMAL) Hemoglobin A1c (09/02/2024 3:00 AM EDT) Hemoglobin A1C 6.2(H) <5.7 % [facility] Comment: Methodology: Enzymatic Normal: <5.7% Prediabetes: 5.7-6.4% Diabetes: >6.4% Diabetic Glucose Control Evaluation: Therapeutic action suggested at >8.0% ADA recommends a glycemic goal of <7.0% 09/02/2024 3:00 AM EDT 09/03/2024 2:33 PM EDT us Ed Carver MD LAB BLOOD ORDERABLES Final Result Performing Organization Address [facility] de Phone Number [facility] [address] [place] [address] * (ABNORMAL) Glucose, random (09/02/2024 3:00 AM EDT) Only the most recent of3 resultswithin the time period is included. Glucose 117(H) 70 - 99 mg/dL [facility] Comment: ADA guidelines outline the following fasting glucose ranges: Normal: <100 Prediabetes: 100-125 Diabetes: >125 09/02/2024 3:00 AM EDT 09/03/2024 2:17 PM EDT us Ed Carver MD LAB BLOOD ORDERABLES Final Result Performing Organization Address [facility] de Phone Number [facility] [address] [place] [address] * Ferritin (09/02/2024 3:00 AM EDT) Only the most recent of3 resultswithin the time period is included. Ferritin 161 10 - 291 ng/mL [facility] 09/02/2024 3:00 AM EDT 09/03/2024 2:17 PM EDT us Ed Carver MD LAB BLOOD ORDERABLES Final Result Performing Organization Address [facility] de Phone Number [facility] [address] [place] [address] * (ABNORMAL) Creatinine, serum (09/02/2024 3:00 AM EDT) Only the most recent of3 resultswithin the time period is included. Creatinine 9.01(H) 0.55 - 1.02 mg/dL [facility] 09/02/2024 3:00 AM EDT 09/03/2024 2:17 PM EDT Ed Carver MD LAB BLOOD ORDERABLES Final Result Performing Organization Address [facility] Co de Phone Number [facility] [address] [place] [address] * Bilirubin, total (09/02/2024 3:00 AM EDT) Only the most recent of3 resultswithin the time period is included. Total Bilirubin 0.3 0.3 - 1.2 mg/dL [facility] 09/02/2024 3:00 AM EDT 09/03/2024 2:17 PM EDT Ed Carver MD LAB BLOOD ORDERABLES Final Result Performing Organization Address [facility] de Phone Number [facility] [address] [place] [address] * (ABNORMAL) Lipid panel (09/02/2024 3:00 AM EDT) Cholesterol 129 mg/dL [facility] Comment: Optimal: <200 Borderline: 200-239 High Risk: >239 Triglycerides 49 mg/dL [facility] Comment: Optimal: <150 Borderline: 150-200 High Risk: >200 HDL 47(L) mg/dL [facility] Comment: Optimal: >59 Borderline: 40-59 High Risk: <40 LDL-Calc 72 mg/dL [facility] Comment: Optimal: <100 Borderline: 100-159 High Risk: >159 VLDL Cholesterol Memo 10 mg/dL [facility] Comment: Optimal: <30 Borderline: 30-40 High Risk: >40 Chol/HDL Ratio 2.7 [facility] Comment: Optimal: <3.3 High Risk: >6.2 09/02/2024 3:00 AM EDT 09/03/2024 2:17 PM EDT us Ed Carver MD LAB BLOOD ORDERABLES Final Result Performing Organization Address [facility] de Phone Number [facility] [address] [place] [address] * (ABNORMAL) Electrolyte panel (09/02/2024 3:00 AM EDT) Only the most recent of3 resultswithin the time period is included. Sodium 140 136 - 145 mEq/L [facility] Potassium 6.2(H) 3.4 - 5.0 mEq/L [facility] Chloride 104 98 - 107 mEq/L [facility] Bicarbonate (CO2) 17(L) 21 - 31 mEq/L [facility] Anion Gap 19(H) 3 - 14 mEq/L [facility] 09/02/2024 3:00 AM EDT 09/03/2024 2:17 PM EDT Ed Carver MD LAB BLOOD ORDERABLES Final Result Performing Organization Address [facility] de Phone Number [facility] [address] [place] [address] * (ABNORMAL) Phosphorus (07/22/2024 3:00 AM EDT) Phosphorus, Serum 9.2(H) 2.5 - 5.0 mg/dL [facility] 07/22/2024 3:00 AM EDT 07/23/2024 12:58 PM EDT Ed Carver MD LAB BLOOD ORDERABLES Final Result Performing Organization Address [facility] de Phone Number [facility] [address] [place] [address] * (ABNORMAL) Hemoglobin (07/17/2024 3:00 AM EDT) Only the most recent of3 resultswithin the time period is included. Hgb 10.1(L) 11.2 - 15.7 g/dL [facility] Hemoglobin x 3 30.3(L) 33.6 - 47.1 g/dL [facility] 07/17/2024 3:00 AM EDT 07/18/2024 12:22 PM EDT Ed Carver MD LAB BLOOD ORDERABLES Final Result Performing Organization Address [facility] Co de Phone Number [facility] [address] [place] [address] * Collection Date (06/21/2024 3:00 AM EDT) Only the most recent of3 resultswithin the time period is included. Collection Date See Comment [facility] Comment: Patient sample received may exceed specimen stability, based on the collection date electronically provided. When reviewing patient results, verify collection information and consider specimen stability before acting on any critical or panic results. 06/21/2024 3:00 AM EDT Ed Carver MD LAB HISTORICA [id number] RESULTS Final Result Performing Organization Address [facility] Co de Phone Number [facility] [address] [place] [address] * CO2 (06/07/2024 3:00 AM EDT) Bicarbonate (CO2) 24 21 - 31 mEq/L [facility] 06/07/2024 3:00 AM EDT 06/10/2024 12:19 PM EDT Ed Carver MD LAB BLOOD ORDERABLES Final Result Performing Organization Address [facility] Co de Phone Number [facility] [address] [place] [address] from Last 3 Months Insurance [facility] ([id number]) [facility] ([id number]) [facility] ([id number]) Care Teams Supervisor [employer] Relationship Specialty Start Date End Date Alyssa Manzano DO [address] [place] [id number] PCP - General Family Medicine 03/02/21
--- OUTSIDE RECORDS SUMMARY | 2024-09-05 00:47 | XMS_ITS | Clinical Summary ---
Author Organization [facility] Address [address] [place] [address] Care Team Providers Care Chaperon Name Role Phone Unavailable Primary Care Provider [...] 0.79 S/CO ratio 01/10/2022 10:39 AM EST [employer] Hepatitis C Antibody Interpretation Nonreactive Nonreactive 01/10/2022 10:39 AM EST [employer] Blood specimen (specimen) (Plasma/Serum) 01/09/2022 8:34 AM EST 01/09/2022 9:21 AM EST us Jaziel B Post MD LAB BLOOD ORDERABLES Final Resu lt [facility] [address] [place] [address] * HIV 1/2 Ag/Ab CMIA Reflex to Confirmation (01/09/2022 8:34 AM EST) HIV 1/2 Ag/Ab CMIA Nonreactive Nonreactive 01/10/2022 10:39 AM EST [facility] Comment: Results show no evidence of infection [...] BLOOD ORDERABLES Final Resu lt HOSPITAL [facility] [employer] [facility] [address] [place] [address] from Last 3 Months or Most Recently Relevant to Health Maintenance Insurance [facility] MISC MGD MEDICARE OUT OF NETWORK Advance Directives * Full Code (Latest Code Status on File) Date Activated Date Inactivated Comments 01/06/2022 5:00 AM Question Answer Comments Decision Thoroughly Discussed with: Unable to Di scuss
--- NOTE | 2024-09-05 00:49 | P.HPCC_ITS ---
History of Present Illness Date of Service: 09/05/24 Attending physician on admission: Chapin Casillas Chief Complaint: ischemic stroke post DIRECTOR OF RESERVATIONS 34-year-old female with underlying history of end-stage renal disease on hemodialysis Sunday and Saturdays who had dialysis today, type 2 diabetes, possible history of MS, prior stroke, diabetic foot osteomyelitis, diabetic retinopathy, anxiety, depression, peripheral arterial disease, sepsis, cellulitis, gastroparesis, among others presented to emergency room with reported right-sided weakness which started 2 hours prior to arrival to the emergency room.? According to the patient her arms or legs had been weak after the hemodialysis therapy and she was noted to have minimal facial droop in the emergency room. Workup in the emergency room Blood sugar 216. ?White blood cells 6.4, hemoglobin 9.5, hematocrit 37.7, platelets 125. ?PT 12.8, INR 1.1, PTT 26.7.? Venous blood gas pH 7.4, pCO2 51, PO2 45, bicarb 34. EKG shows sinus tachycardia ventricular rate at 102 beats per minute there is left axis deviation with T-wave flattening in the lateral leads and evidence of right bundle branch block. On arrival to the emergency room the exam revealed significant right upper extremity weakness and right lower extremity weakness against gravity, NIH of 6. ?Case had been discussed with neurologist and tPA was advised. ?Underwent a head CT which showed no intracranial abnormality or hemorrhage.? CT angiogram of the head and neck showed patent vessels.? The patient received TNK at 2200. Overall the patient's symptoms have not improved, the patient denies further complaints, patient will be transferred to the ICU for further care. Review of Systems 2 Review of Systems: Review of systems: As above, otherwise the patient denies any prior history of cold intolerance, migraine headaches, head trauma, no eyes, ears or nose problems, no problems swallowing or with phonation, no thyroid disease, denies any history of chest pain, palpitations, coronary disease, cough, sputum production, pneumonia, bronchitis, COPD or emphysema, abdominal pain, nausea, vomiting, diarrhea, abdominal surgeries, melena, hematochezia, hematemesis, liver problems, immunocompromise state of any kind, no history of DVT or PE, leg edema, fractures or extremity surgeries all other review of systems were reviewed and they were all negative. [facility] Past Medical History Medical History ESRD on dialysis Hypoxia End stage renal disease on dialysis Chronic ulcer of right foot due to diabetes mellitus Chronic ulcer of left foot due to diabetes mellitus DM foot ulcer ESRD on hemodialysis Hypotonic neurogenic bladder Diabetic polyneuropathy Hypertensive emergency Decompensated heart failure Renal failure Hypertension, uncontrolled Medical non-compliance Pericarditis Unspecified hypertension, condition or complication Metabolic acidosis Gastroparesis End stage chronic kidney disease Chronic kidney disease Anemia Plantar ulcer of left foot MDD (major depressive disorder) CKD (chronic kidney disease) Hypertension Hyperkalemia Vomiting Chronic pain Non-compliance with renal dialysis End-stage renal disease (ESRD) Diabetic foot ulcer associated with type 2 diabetes mellitus Cardiomyopathy HFrEF (heart failure with reduced ejection fraction) delivery delivered Anemia in chronic kidney disease (CKD) CKD (chronic kidney disease) Abnormal finding on echocardiogram Elevated troponin Acute worsening of stage 3 chronic kidney disease Generalized edema Sepsis Cellulitis Pleural effusion Atypical chest pain Bone infection PAD (peripheral artery disease) Cellulitis and abscess of foot Osteomyelitis Asthma Depression with anxiety Diabetic retinopathy Blind right eye Diabetes Back pain Family History Family History Mother Coronary artery disease Myocardial infarction Stroke Diabetes mellitus Father Myocardial infarction Surgical History Surgical History Tubal ligation status Previous section Hx laparoscopic cholecystectomy Hx of surgical procedure (~09/11/23) 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 Social History Social History Household Members: Family Household Members Other:: sister, brother, [id number] Housing: Apartment Housing Other:: Apartment, 1st floor Are you a primary point of care specialist to a significant other at home: No Do you presently have visiting nurse or other home services: Yes (PRODUCT MANAGEMENT INTERN) Unable to assess alcohol history related to: Unknown Alcohol intake: never Comment: refused camera Patient Tobacco Use Status: Never used Tobacco Smoked in Last 30 Days: No e-Cigarette/Vaping Use: Never Used Patient Interested in Nicotine Replacement: No Patient Given Instructions on How to Stop Smoking: No Second Hand Smoke Exposure: No Currently Displaying Signs/Symptoms of Drug Intoxication Withdrawal: No Have you been hit, kicked, punched, or otherwise hurt by someone within the past year? If so, by whom?: No Do you feel safe in your current relationship?: No Current Relationship Is there a partner from a previous relationship who is making you feel unsafe now?: No Are you made to feel afraid or neglected: No Advance Directives: Yes Advance Directives Information Provided: No Advance Directives on File: Yes Advance Directives Date on File: 08/28/23 Do you have a plan to hurt others: No Plan Recently lost weight without trying: No Nutrition Risks: No Nutritional Risk Patient : No : No Poor oral hygiene: No service: No Current occupational status: unemployed and disabled Gender identity: Female Meds Allergies Allergy/AdvReac Type Severity Reaction Status Date / Time gabapentin Allergy Severe Facial Verified 09/04/24 21:42 Swelling tramadol Allergy Severe Facial Verified 09/04/24 21:42 Swelling vancomycin Allergy Severe Anaphylaxis Verified 09/04/24 21:42 azithromycin (From Zithromax) Allergy Intermediate Hives Verified 09/04/24 21:42 morphine (MORPHINE) Allergy Intermediate Itching Verified 09/04/24 21:42 Active Medications: Current Medications Sodium Chloride (0.9 % Sodium Chloride Flush 3 Ml Syringe) 3 ml IVFSH [facility] Home Medications ?Medication ?Instructions ?Recorded ?Confirmed ?Last Taken ?Type albuterol sulfate 90 mcg/actuation 2 puff inhalation Q 6H PRN wheezing 01/15/24 09/05/24 08/18/24 History aerosol inhaler (Ventolin HFA) lidocaine 5 % topical patch 1 patch topical DAILY PRN Pain 01/15/24 09/05/24 02/24/24 History nitroglycerin 0.4 mg sublingual 0.4 mg sublingual D IRECTED PRN 01/15/24 09/05/24 Unknown History tablet Angina acetaminophen 325 mg tablet 650 mg PO Q4H PRN mild jamar n 03/11/24 09/05/24 Unknown History calcium carbonate (Tums) 200 mg PO TIDWM PRN Acid Ref lux 07/03/24 09/05/24 Unknown History oxycodone 5 mg tablet 5 mg PO TID PRN Pain 5 09/05/24 Unknown History Physical Exam 2 Vital Signs: Vital Signs: Last Vital Signs Temp 98.2 F 09/04/24 21:00 Pulse 94 09/04/24 23:43 Resp 20 09/04/24 23:43 BP 167/92 H 09/04/24 23:43 Pulse Ox 97 09/04/24 23:43 O2 Del Method Room Air 09/04/24 23:43 BMI result Body Mass Index 29.4 General:? No facial droop noted.? Alert oriented x3 no acute distress. No accessory muscle usage.? Following all commands.? The patient is speaking in full sentences, understanding everything I say any even following commands upon request however thus have inability to move right upper extremity more than lower extremity upon request as described below. Skin:? Right toes are amputated, unstageable wound at the stump area, left foot ulcer chronic in appearance unstageable. ? HEENT:? Head is normocephalic, atraumatic, legally blind, right eye is fuller out. Buccal mucosa is dry. Neck is supple without lymphadenopathy. Cardiac:? Clear S1-S2, no murmurs rubs or gallops. Pulmonary:? Diminished lung sounds bilaterally fine expiratory wheezing bilaterally .? No crackles, rales or rhonchi. Abdomen:? Protuberant, positive bowel sounds in all 4 quadrants.? Soft, nontender, no rebound or guarding.? Musculoskeletal:? Upon request, the patient was able to lift the right upper extremity up to shoulder level without noted weakness although patient claims this is heavy.? She is able to flex stent slowly.? Right lower extremity range of motion at the major joints is full in comparison to the left is equal in strength of 5/5.? Hand microbiology quality control technician of right upper extremity is 3/5 in comparison to the left. ?Chronic bilateral lower extremity wounds of the right stump and right leg area unstageable at this point.? No foul odor. ?Gait not assessed at this point. Neurologic:? As above.? Motor deficits of the right upper extremity more than lower extremity as above noted. Vascular:? 2+ pulses upper extremities distally. Results Labs 09/05/24 07:57 09/05/24 07:57 Labs: Laboratory Results - last 24 hr 09/04/24 09/04/24 09/04/24 20:52 21:58 23:00 MCV 94.2 MCH 32.3 MCHC 34.3 RDW 15.4 Plt Count 125 L MPV 11.4 Immature Gran % (Auto) 0.3 Neut % (Auto) 71.0 Lymph % (Auto) 9.1 L Crockett % (Auto) 17.2 H Eos % (Auto) 2.2 Baso % (Auto) 0.2 Lymph # (Auto) 0.6 L Crockett # (Auto) 1.1 Eos # (Auto) 0.1 Baso # (Auto) 0.0 Abs Immat Gran (auto) 0.02 Absolute Neuts (auto) 4.5 Absolute Nucleated RBC 0.000 Nucleated RBC % (auto) 0.0 PT 12.8 H Whole Blood PT 14.2 H INR 1.1 Whole Blood INR 1.2 H APTT 26.7 VBG pH 7.43 VBG pCO2 51 VBG pO2 45 VBG HCO3 34 H VBG O2 Saturation 70.0 VBG Base Excess 8.7 Anion Gap Estim Creat Clear Calc Estimated GFR POC Glucose 216 H Random Glucose Calcium Triglycerides Cholesterol LDL Cholesterol, Calc HDL Cholesterol 09/04/24 23:29 MCV MCH MCHC RDW Plt Count MPV Immature Gran % (Auto) Neut % (Auto) Lymph % (Auto) Crockett % (Auto) Eos % (Auto) Baso % (Auto) Lymph # (Auto) Crockett # (Auto) Eos # (Auto) Baso # (Auto) Abs Immat Gran (auto) Absolute Neuts (auto) Absolute Nucleated RBC Nucleated RBC % (auto) PT Whole Blood PT INR Whole Blood INR APTT VBG pH VBG pCO2 VBG pO2 VBG HCO3 VBG O2 Saturation VBG Base Excess Anion Gap 16 Estim Creat Clear Calc 13.6 Estimated GFR 8 POC Glucose Random Glucose 197 H Calcium 8.5 Triglycerides 118 Cholesterol 169 LDL Cholesterol, Calc 104 H HDL Cholesterol 42 Assessment and Plan (1) Acute ischemic stroke: Status: Acute Plan ASSESSMENT : 1. Acute ischemic stroke post tPA administration with right-sided upper extremity more than lower extremity weakness 2. Anemia of chronic disease 3. Type 2 diabetes 4. Stable essential hypertension 5. Chronic thrombocytopenia 6. End-stage renal disease on hemodialysis post treatment today. 7. Bilateral diabetic wound ulcers chronic in nature and present on admission unstageable 8. Recent Lyme disease test (negative western blot to my interpretation) 9.Opioid Dependance PLAN OF CARE: The patient will be admitted to the ICU, monitor vital signs, I's and O's, we will allow liberalize blood pressure and we will follow post tPA administration protocol.? Recurrent neuro checks, repeat laboratories in the morning. ?Echocardiogram, we will start her on statin, no aspirin or NSAIDs for next 24 hours.? MRI.? Bedside swallow eval, fasting lipids in the morning.? Insulin sliding scale.? Wound care. The patient did have a Lyme disease test on 08/22/2024 it is unclear if the patient received treatment, however less likely to represent an acute infection as the Western Blot test shows only 1 IgM positive band and no IgG bands. Consider repeating test. The patient constantly requesting for IV Dilaudid which is something that they usually give her on the floor as she claims oxycodone that she takes at home does not do anything for her. We would attempt to verify her prescription. GI PROPHYLAXIS:? IV PPI DVT PROPHYLAXIS:? Pneumatic stockings only Critical care time used for critical evaluation of this patient, diagnosis, treatment and coordination of care, review her records and documentation TOTAL CRITICAL CARE TIME? 60 MIN . discussion and coordination with consultants, completely separate from any procedures performed. Patient's care was discussed in detail with Dr. Casillas who is aware of all the above as well as the plan of care for this patient.
[2024-09-05] MEDS: oxyCODONE HCl Immed Release 5 MG TABLET PO ×4 (03:43→23:17)
--- NOTE | 2024-09-05 05:35 | HO.SKINPHOTO ---
Locatiom Location: Category: Stage: Length: Width: Depth: cm Location: Category: Category: Stage: Length: Width: Depth: cm Location: Category: Stage: Length: Width: Depth: cm Location: Category: Stage: Length: Width: Depth: cm Location: Category: Stage: Length: Width: Depth: cm Location: Category: Stage: Length: Width: Depth: cm
--- NOTE | 2024-09-05 06:07 | HO.SKINPHOTO ---
Location Location: Category: diabetic ulcer Stage: Length: Width: Depth: cm
--- NOTE | 2024-09-05 06:10 | HO.SKINPHOTO ---
Location: Category:diabetic ulcer Stage: Length: Width: Depth: cm
--- NOTE | 2024-09-05 07:27 | HE.ICUCC ---
ICU Critical Care Nursing Note Patient admitted for ischemic stroke post TNK. ICU Day #:1 Neuro: right upper extremity weakness/heaviness / neuros intact. Cardiac:SR on telemetry Resp:patient on room air O2 sats 100% GI/: Oliguric/ + BSx4 Endocrine:Type 2 diabetic Integumentary/Musculoskeletal: bilateral diabetic ulcers on transmetatarsal amputations/wound care consult / dressings changed. Psychosocial (family etc.):patient lives at home with sister/ PARTY DEMONSTRATOR services Central Lines: 2 IV's left/right arms. portacath right chest for dialysis .
[2024-09-05 07:36] LABS: Glucose, Whole Blood 84 mg/dL (60-115)
[2024-09-05] MEDS: 0.9 % Sodium Chloride Flush 3 ML SYRINGE IVFLUSH ×3 (07:39→23:16)
[2024-09-05 08:18] LABS: MANUAL DIFF FLAG NO
[2024-09-05 08:21] LABS: Hematocrit 30.0 % (37.0-47.0); Hemoglobin 10.1 g/dl (12.0-16.0); Imm Gran Abs Auto 0.03 X10*3/uL (0.00-0.03); Imm Gran Pct Auto 0.4 % (0.0-0.4); Lymphocytes Absolute Auto 0.8 X10*3/uL (1.2-4.9); Mean Corpuscular HGB Conc 33.7 g/dl (31.0-35.0); Mean Corpuscular Hemoglobin 31.9 pg (27.0-33.0); Mean Corpuscular Volume 94.6 fL (80.0-98.0); NRBC Abs Auto 0.000 X10*3/uL (0.0-0.012); NRBC Pct Auto 0.0 /100WBC (0.0-0.2); Platelet Count 121 X10*3/uL (160-400); Red Blood Count 3.17 X10*6/uL (4.20-5.50); White Blood Count 6.8 X10*3/uL (4.8-10.8)
[2024-09-05 08:37] LABS: Alanine Aminotransferase 37 U/L (0-31); Albumin Level 3.9 g/dL (3.5-5.0); Alkaline Phosphatase 202 U/L (39-117); Anion Gap 17 (12-20); Aspartate Amino Transferase 41 U/L (5-31); Blood Urea Nitrogen 50 mg/dL (9-16); Calcium 8.3 mg/dL (8.4-10.2); Carbon Dioxide 26 mmol/L (22-29); Chloride 99 mmol/L (96-108); Cholesterol 162 mg/dL (<200); Creatinine Clr Calc Pharmacy 12.8; Estimated Glomerular Filt Rate 7; HDL Cholesterol 40 mg/dL (>40); Magnesium 2.3 mg/dL (1.6-2.6); Potassium 4.8 mmol/L (3.3-5.1); Sodium 137 mmol/L (135-145); Total Protein 7.5 g/dL (6.5-8.0); Triglycerides 112 mg/dL (<150)
--- NOTE | 2024-09-05 09:15 | PHA.MEDREC ---
Addendum entered by Maulik Goodman [facility] 09/05/24 09:59: Reviewed by [facility] Original Note: Pharmacy Consult ? Medication Reconciliation Pharmacy has completed the medication reconciliation. Spoke with pt and she confirmed she was just admitted with us (08/27-08/31) and the Dc packet was up to date. Pt confirmed she stopped taking Humlog as of the DC 08/31. Pt also states she is finished the Doxycycline yesterday.
--- NOTE | 2024-09-05 09:53 | PM.NEUROCN ---
History of Present Illness Data of Consult Service Date: 09/05/24 Primary Care Provider: Unknown Physician HPI Reason for consult: Stroke 34 years old unfortunate woman with complex underlying medical history including end-stage renal disease and diagnosis of multiple sclerosis came to hospital yesterday with sudden onset of right-sided weakness. She was evaluated with an timeframe and ear physician noted significant right-sided weakness and with tentative diagnosis of ischemic infarction, TNK was administered. Patient has lost her side because of ophthalmological issues couple of years ago. She also had significant vascular disease resulting in bilateral foot toe amputations. I saw her in ICU this morning when she feeling somewhat better. There was no complaint of chest pain shortness of breath or headache. No seizure-like episode Review of Systems Review of Systems: As per HPI. [facility] Past Medical History Medical History ESRD on dialysis Hypoxia End stage renal disease on dialysis Chronic ulcer of right foot due to diabetes mellitus Chronic ulcer of left foot due to diabetes mellitus DM foot ulcer ESRD on hemodialysis Hypotonic neurogenic bladder Diabetic polyneuropathy Hypertensive emergency Decompensated heart failure Renal failure Hypertension, uncontrolled Medical non-compliance Pericarditis Unspecified hypertension, condition or complication Metabolic acidosis Gastroparesis End stage chronic kidney disease Chronic kidney disease Anemia Plantar ulcer of left foot MDD (major depressive disorder) CKD (chronic kidney disease) Hypertension Hyperkalemia Vomiting Chronic pain Non-compliance with renal dialysis End-stage renal disease (ESRD) Diabetic foot ulcer associated with type 2 diabetes mellitus Cardiomyopathy HFrEF (heart failure with reduced ejection fraction) delivery delivered Anemia in chronic kidney disease (CKD) CKD (chronic kidney disease) Abnormal finding on echocardiogram Elevated troponin Acute worsening of stage 3 chronic kidney disease Generalized edema Sepsis Cellulitis Pleural effusion Atypical chest pain Bone infection PAD (peripheral artery disease) Cellulitis and abscess of foot Osteomyelitis Asthma Depression with anxiety Diabetic retinopathy Blind right eye Diabetes Back pain Family History Family History Mother Coronary artery disease Myocardial infarction Stroke Diabetes mellitus Father Myocardial infarction Surgical History Surgical History Tubal ligation status Previous section Hx laparoscopic cholecystectomy Hx of surgical procedure (~09/11/23) 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 Social History Social History Household Members: Family Household Members Other:: sister, brother, [id number] Housing: Apartment Housing Other:: Apartment, 1st floor Are you a primary managed care specialist to a significant other at home: No Do you presently have visiting nurse or other home services: Yes (TRAFFIC SIGNAL REPAIRER) Unable to assess alcohol history related to: Unknown Alcohol intake: never Comment: refused camera Patient Tobacco Use Status: Never used Tobacco Smoked in Last 30 Days: No e-Cigarette/Vaping Use: Never Used Patient Interested in Nicotine Replacement: No Patient Given Instructions on How to Stop Smoking: No Second Hand Smoke Exposure: No Have you been hit, kicked, punched, or otherwise hurt by someone within the past year? If so, by whom?: No Do you feel safe in your current relationship?: No Current Relationship Is there a partner from a previous relationship who is making you feel unsafe now?: No Are you made to feel afraid or neglected: No Advance Directives: Yes Advance Directives Information Provided: No Advance Directives on File: Yes Advance Directives Date on File: 08/28/23 Do you have a plan to hurt others: No Plan Recently lost weight without trying: No Nutrition Risks: No Nutritional Risk Patient : No : No Poor oral hygiene: No service: No Current occupational status: unemployed and disabled Gender identity: Female Meds Allergies Allergy/AdvReac Type Severity Reaction Status Date / Time gabapentin Allergy Severe Facial Verified 09/04/24 21:42 Swelling tramadol Allergy Severe Facial Verified 09/04/24 21:42 Swelling vancomycin Allergy Severe Anaphylaxis Verified 09/04/24 21:42 azithromycin (From Zithromax) Allergy Intermediate Hives Verified 09/04/24 21:42 morphine (MORPHINE) Allergy Intermediate Itching Verified 09/04/24 21:42 Active Medications: Current Medications Oxycodone HCl (Oxycodone Hcl Immed Release 5 Mg Tablet) 5 mg PO Q4H PRN PRN Reason: Pain, Moderate(Pain Scale 4-6) Sodium Chloride (0.9 % Sodium Chloride Flush 3 Ml Syringe) 3 ml IVFLUSH QSHIFT [facility] Last Admin: 09/05/24 07:39 Dose: 3 ml Home Medications ?Medication ?Instructions ?Recorded ?Confirmed ?Last Taken ?Type albuterol sulfate 90 mcg/actuation 2 puff inhalation Q6H PRN wheezing 01/15/24 09/05/24 08/18/24 History aerosol inhaler (Ventolin HFA) lidocaine 5 % topical patch 1 patch topical DAILY PRN Pain 01/15/24 09/05/24 02/24/24 History nitroglycerin 0.4 mg sublingual 0.4 mg sublingual DIRECTED PRN 01/15/24 09/05/24 Unknown History tablet Angina acetaminophen 325 mg tablet 650 mg PO Q4H PRN mild pain 03/11/24 09/05/24 Unknown History calcium carbonate (Tums) 200 mg PO TIDWM PRN Acid Reflux 07/03/24 09/05/24 Unknown History oxycodone 5 mg tablet 5 mg PO TID PRN Pain 08/27/24 09/05/24 Unknown History Physical Exam Vital Signs: Vital Signs: Last Vital Signs Temp 97.1 F 09/05/24 08:00 Pulse 95 09/05/24 09:00 Resp 15 09/05/24 09:00 BP 159/73 H 09/05/24 09:00 Pulse Ox 99 09/05/24 09:00 O2 Del Method Room Air 09/05/24 09:00 BMI result Body Mass Index 29.5 Neuro: Other: She is alert and awake with normal spontaneity of speech fluency and comprehension with occasional paraphasic error. Face is symmetrical. She could not see from either eye with corneal opacities. There was mild right-sided weakness compared to lift. Reflexes are absent. Toes were missing. Exam was limited. Results Labs 09/05/24 07:57 09/05/24 07:57 Labs: Short CBC 09/04/24 09/05/24 Range/Units 21:58 07:57 WBC 6.4 6.8 (4.8-10.8) X10*3/uL Hgb 9.5 L 10.1 L (12.0-16.0) g/dl Hct 27.7 L 30.0 L (37.0-47.0) % Plt Count 125 L 121 L (160-400) X10*3/uL BMP 09/04/24 09/05/24 23:29 07:57 Sodium 138 137 Potassium 4.3 4.8 Chloride 99 99 Carbon Dioxide 27 26 BUN 47 H 50 H Creatinine 6.18 H* 6.60 H* Calcium 8.5 8.3 L Liver Function 09/05/24 Range/Units 07:57 Total Bilirubin 0.7 (0.0-1.0) mg/dL AST 41 H (5-31) U/L ALT 37 H (0-31) U/L Alkaline Phosphatase 202 H (39-117) U/L Albumin 3.9 (3.5-5.0) g/dL I reviewed her recent head CT, MRI done in 2024 and also in 2022. There was no obvious acute lesion on this CAT scan. She had multiple bilateral hyperintensity is including in brainstem. These lesions were suggestive more of microvascular disease than demyelinating disease. Brainstem or pontine lesion can happened from severe metabolic abnormalities, which she was at risk for. Assessment and Plan (1) Cerebral infarction: Qualifiers: Cerebral infarction mechanism: thrombosis Precerebral and cerebral artery: unspecified cerebral artery Qualified Code(s): I63.30 - Cerebral infarction due to thrombosis of unspecified cerebral artery Status: Acute 34 years old woman with complex underlying medical history including bilateral blindness, end-stage renal disease on dialysis, bilateral foot toe amputations, and multiple brain signal abnormalities that were suggested to be cause by multiple sclerosis. She came to hospital yesterday with sudden onset of right-sided weakness and was treated with TNK. Now she was feeling somewhat better. She probably had a microvascular left hemispheric subcortical ischemic lesion. As far as her previous MRI findings are concerned, I believe the difference between the MRI in 2022 and 2024 is technical because of different machines and software. Overall findings are similar in about the same revealing brainstem and cortical hyperintensity suggestive of ischemic lesions instead of demyelinating lesions. There was no definite carpus callosum lesion. Mainstay of management is control of vascular risk factors, statin, if indicated, and anti-platelet agent. PT OT consultation is recommended. I would also recommend to obtain at least a noncontrast MRI of brain to make definitive diagnosis. Procedures Date of Service Date of Service: 09/05/24
--- NOTE | 2024-09-05 10:07 | MHC.CM.PN ---
Met with pt to review d/c planning needs: pt resides with her sister who is her LOGISTICS TEAM LEADER. She attends [employer] on , , and is transported via BLS . Pt has home O2 through [facility]. HCP on file and verified, IMM in chart. D/C plan: return to home w/existing services via BLS
[2024-09-05 11:19] LABS: Glucose, Whole Blood 113 mg/dL (60-115)
--- NOTE | 2024-09-05 13:27 | HO.WOUND ---
Wound Consult: Initial 34yr old female admitted to [facility] on 09/05/24 - See progress notes and H&P for detailed history.? 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 Wound consult for Bilateral lower foot wounds.? The below information and recommendations are based on chart review along with photos from this admission. Left Heel? - Diabetic Wound - healing - almost fully resurfaced tissue - no topical recommendations applied elevate heels off of bed surface with pillows. Do not apply foam dressing to heels. Left Plantar Diabetic Wound? - chronic open wound - no sough noted - recommend Durafiber AG Right Plantar Diabetic Wound? -open chronic wound bed - recommend Durafiber AG Right Dorsal Diabetic Wound? - open tissue loss - recommend Durafiber AG Recommendations: 1. Turn and Reposition every 2 hours and as needed for patient comfort.? Use pillows or wedges to support off loading positions. 2. Off Load all bony prominences with use of pillows and heel boots if needed.? Apply Preventative foams where needed. ? 3. Monitor for incontinence and moisture control, use barrier creams when needed for prevention and treatment. 4. Provide adequate and supplemental nutrition.? 5. Order low air loss mattress. 6. When applicable maintain blood glucose levels per Providers order. Left foot and Right Foot open wounds - Elevate heels off of bed surface with pillows.? Cleanse with saline, pat dry. ?Apply Durafiber to the wound bed cover with dry gauze ABD pad and wrap. change every other day. Re-consult wound care Nurse for wound deterioration or wound changes.
--- NOTE | 2024-09-05 13:58 | MHC.SL.SWA ---
Speech Pathologist Impression: WFL Dysphasia Diet Status: Upgrade from NPO to REGULAR/THIN Liquid Consistency and Strategies for Safe Swallow: Liquid Intake Recommendation: Thin Solid Food Consistency: Dietary Recommendations: Regular Oral Medication Intake: Whole with Liquid Please contact the pharmacy regarding appropriate crushable or liquid drug formulations that are available whenever modified delivery is recommended. Supervision While Eating and Drinking for Safe Swallow: Intermittent Supervision Recommendation for Speech: NA:Typical Evaluation Comment: Mildly prolonged mastication likely d/t generalized weakness/ fatigue, otherwise other aspects of swallow unremarkable. Recommend REGULAR texture solids and THIN liquids, pills WHOLE in LIQUID. Advised MD, RN, & RD via [place] Message. Please rerefer with any further concern. Electrical Equipment Assembler Clinican/Clinical Fellow: No Supervisory Statement: I have reviewed and agree with the student/clinical fellow's documentation: N/A Speech Language Pathologist: Jesi Montez M.A., CCC-LOCKSTITCH ZIPPER SETTER
--- NOTE | 2024-09-05 14:58 | PC.NURSE ---
No change in neuro assessment. Patient alert and oriented x 4. c/o right sided weakness and decreased sensation. Brought for MRI. Neurology at bedside to adam. Passed swallow eval, started on regular diet. c/o 10/10 pain all over body, Oxycodone given with no relief. Dr Casillas made aware. Call moore at bedside, bed alarm on, safety maintained. See flowsheet for further assessment documentation.
--- NOTE | 2024-09-05 16:07 | PM.EVENT ---
Event Note Date of Service: 09/05/24 Event Note: presented to the ED 09/04 with right side weakness concern for stroke, got TNK in ED. no significant improvement in symptoms initially admitted to ICU for close neuro checks. Started on statin, no aspirin or NSAIDs within 1st 24 hours, downgraded from the ICU Right-sided weakness admit end of july with right side weakness due to new onset MS and treated with IV steroids CT negative for acute changes MRI - Stable brain suggesting infratentorial and supratentorial compartment demyelinating plaques. Tumefactive active plaque in the left thalamus and or right ventral medulla oblongata /mid camilla junction should be considered. PT rec home with family support started on statin; no ASA/nsaids for first 24 hours after TNK d/w neurology - more likely MS rather then acute stroke - will treat with IV solumedrol 500 q24h x 2-3 days - follow blood sugar closely ESRD ,, schedule nephro consulted Time Spent With Patient Time: Total time managing care of this patient today ____ minutes.
[2024-09-05 16:33] LABS: Glucose, Whole Blood 86 mg/dL (60-115)
[2024-09-05 20:27] LABS: Glucose, Whole Blood 160 mg/dL (60-115)
[2024-09-06] VITALS (8 sets, daily range): BP systolic 111–198; BP diastolic 63–102; PULSE 86–91; RESP 16–20; TEMP 35.7–36.3; O2SAT 94–98; BMI 29.5
--- NOTE | 2024-09-06 00:55 | ECG_ITS ---
Test Reason : cp Blood Pressure : */* mmHG Vent. Rate : 83 BPM Atrial Rate : 83 BPM P-R Int : 192 ms QRS Dur : 170 ms QT Int : 474 ms P-R-T Axes : 43 -49 60 degrees QTcB Int : 556 ms Normal sinus rhythm Possible Left atrial enlargement Right bundle branch block Left anterior fascicular block Bifascicular block Abnormal ECG When compared with ECG of 04-Sep-2024 22:19, No significant changes seen Referred By: Angela Ulloa Electronically Signed By: Vinny Vera
[2024-09-06] MEDS: oxyCODONE HCl Immed Release 5 MG TABLET PO ×3 (05:57→18:34)
[2024-09-06 07:47] LABS: Glucose, Whole Blood 393 mg/dL (60-115)
[2024-09-06] MEDS: 0.9 % Sodium Chloride Flush 3 ML SYRINGE IVFLUSH ×3 (09:03→23:59)
--- NOTE | 2024-09-06 10:42 | HO.PM.IMPN ---
Subjective Subjective Date of Service: 09/06/24 Interval History: Seen and examined this morning Follow-up for right-sided weakness Patient reports she is still feeling heaviness on her right upper and lower extremity but symptoms somewhat improved since admission requesting pain medication Constitutional Constitutional: Denies chills and Denies fever(s) Physical Exam Vital Signs: Vital Signs: Last Vital Signs Temp 96.2 F L 09/06/24 07:34 Pulse 86 09/06/24 09:02 Resp 20 09/06/24 07:34 BP 198/102 H 09/06/24 09:02 Pulse Ox 98 09/06/24 07:34 O2 Del Method Room Air 09/06/24 07:34 BMI result Body Mass Index 29.5 Const: General: cooperative, comfortable, no acute distress, alert and awake Nutritional Appearance: average body habitus Orientation/consciousness: patient oriented x3 Eyes: Other: right eye blind Resp: Effort & Inspection: normal respiratory effort, able to speak in complete sentences, no respiratory distress and no use of accessory muscles Cardio: Rate: regular rate GI: Inspection: No distended Palpation (GI): Soft to palpation and nontender Neuro: Other: RUE/RLE reported heaviness, 4/5 strength General: patient oriented x3 Extrem: Other: b/l transmetatarsal amputation Objective Data Active Medications Albuterol Sulfate (Albuterol Sulfate 90 Mcg 8 Gm Inhaler) 2 puff INHALE Q6H PRN PRN Reason: Wheezing Atorvastatin Calcium (Atorvastatin Calcium 20 Mg Tablet) 20 mg PO BEDTIME [facility] Last Admin: 09/05/24 21:39 Dose: 20 mg Documented By: GONZALO Calcium Carbonate (Calcium Carbonate 750 Mg Tab.Chew) 750 mg PO TIDWM PRN PRN Reason: Acid Reflux Carvedilol (Carvedilol 12.5 Mg Tablet) 12.5 mg PO BID [facility]; Protocol Last Admin: 09/06/24 09:02 Dose: 12.5 mg Documented By: LAILA Comments: aware of BP Dextrose (Dextrose 50 % 25 Gm/50 Ml Syringe) 25 gm IVPUSH Q15M PRN; Protocol PRN Reason: per Hypoglycemia Standing Ord. Glucose (Glucose Gel 15 Gm Gel..Gram.) 15 gm PO Q15M PRN; Protocol PRN Reason: per Hypoglycemia Standing Ord. Hydralazine HCl (Hydralazine Hcl 50 Mg Tablet) 50 mg PO TID [facility]; Protocol Last Admin: 09/06/24 09:02 Dose: 50 mg Documented By: LAILA Comments: aware of BP Insulin Human Lispro (Insulin Lispro 100 Unit/Ml 3 Ml Vial) 0 unit SUBCUT QIDACHS [facility]; Protocol Last Admin: 09/06/24 09:21 Dose: 10 unit Documented By: LAILA Comments: aware of POC Lidocaine (Lidocaine 4 % Patch Adh..Patch) 1 patch TRANSDERMA DAILY PRN PRN Reason: Pain Methylprednisolone Sodium Succinate (Methylprednisolone Sod Succ 125 Mg/2 Ml Vial) 500 mg IVPUSH Q24H [facility] Stop: 09/08/24 16:44 Last Admin: 09/05/24 17:40 Dose: 500 mg Documented By: AARON Ondansetron HCl (Ondansetron Odt 4 Mg Tab.Rapdis) 4 mg TRANSLINGU Q8H PRN PRN Reason: Nausea and Vomiting Oxycodone HCl (Oxycodone Hcl Immed Release 5 Mg Tablet) 5 mg PO Q4H PRN PRN Reason: Pain, Moderate(Pain Scale 4-6) Last Admin: 09/06/24 05:57 Dose: 5 mg Documented By: NAY-EUGEJ Sodium Chloride (0.9 % Sodium Chloride Flush 3 Ml Syringe) [facility] Last Admin: 09/06/24 09:03 Dose: 3 ml Documented By: LAILA Trazodone HCl (Trazodone Hcl 25 Mg Halftab) 25 mg PO BEDTIME PRN PRN Reason: Sleep Labs 09/05/24 07:57 09/05/24 07:57 Labs: Laboratory Results - last 24 hr 09/05/24 09/05/24 09/05/24 11:15 16:29 20:24 POC Glucose 113 86 160 H 09/06/24 07:43 POC Glucose 393 H* Assessment and Plan (1) Multiple sclerosis: Status: Acute Plan This is a 34-year-old female with a PMH significant for?ESRD on HD //[facility], [id number] 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, PAD s/p bilateral TMA, poorly controlled hypertension due to medication noncompliance, chronic hypoxemic respiratory failure on 3-4 L baseline supplemental oxygen prn, HFrEF, hx of multiple dialysis catheter line infections with bacteremia with MSSA, stenotrophomonas, and Pseudomonas, mood disorder, and chronic pain with opioid seeking behavior who presents to the ED weakness initially thought to be due to acute stroke s/p TNK and admitted to the ICU for close neurological evaluation, downgraded to the medical floor on September 05 RUE Weakness Recently diagnosed with multiple sclerosis CT and CTA negative for acute findings MRI again showing demyelinating plaques, no evidence of acute stroke; consider LP on Sunday - will discuss with patient seen by neurology -recommend 2-3 days of IV steroids will need outpatient follow up with neurology [id number]-[id number] 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 With diabetic polyneuropathy/retinopathy SSI, POCs, diabetic diet follow blood sugar closely, will likely need lantus while on steroids but has history of hypoglycemia ESRD on HD //Sun Nephrology consult, follows with [facility]ANE Follow BMP Monitor on telemetry Elevated troponin chronically elevated troponins No signs of ACS HTN bp chronically uncontrolled Continue carvedilol, hydralazine Chronic hypoxemic respiratory failure Pt on 3-4 L NC at home - uses intermittently HRrEF Continue carvedilol Treat with dialysis as above Chronic pain with opioid seeking behavior avoid IV narcotics if possible for good neuro checks Full Code DVT Prophylaxis: Pneumatic compression seen by PT - rec home with PT services. (pt has previously refused home services) Patient will need inpatient stay overnight for treatment with IV steroids Quality Stroke Does the patient have a stroke diagnosis?: No VTE Prior VTE?: No VTE Risk Level:: Medical - moderate - high VTE Device Contraindication: N/A - Device Ordered VTE Drug Contraindication: Treatment Not Indicated
[2024-09-06 10:57] LABS: Glucose, Whole Blood 254 mg/dL (60-115)
--- NOTE | 2024-09-06 15:44 | PM.NEUROCN ---
History of Present Illness Data of Consult Service Date: 09/06/24 Primary Care Provider: Genevieve Casillas MD HPI Reason for consult: Right-sided weakness 34 years old woman with complex medical history including end-stage renal disease on dialysis, bilateral blindness, and multiple brain lesions suggestive of demyelinating disease with equal possibility of vascular disease. She came to hospital stating that she had sudden onset of right-sided weakness but this weakness has happened before few weeks ago. In emergency room, with suspicion of acute stroke she was treated with TNK but her MRI of brain did not reveal any acute lesion while she was still having right-sided weakness. This would imply in alternate diagnosis such as multiple sclerosis. Review of Systems Review of Systems: She was complaining of pain though she was not in any distress. [facility] Past Medical History Medical History ESRD on dialysis Hypoxia End stage renal disease on dialysis Chronic ulcer of right foot due to diabetes mellitus Chronic ulcer of left foot due to diabetes mellitus DM foot ulcer ESRD on hemodialysis Hypotonic neurogenic bladder Diabetic polyneuropathy Hypertensive emergency Decompensated heart failure Renal failure Hypertension, uncontrolled Medical non-compliance Pericarditis Unspecified hypertension, condition or complication Metabolic acidosis Gastroparesis End stage chronic kidney disease Chronic kidney disease Anemia Plantar ulcer of left foot MDD (major depressive disorder) CKD (chronic kidney disease) Hypertension Hyperkalemia Vomiting Chronic pain Non-compliance with renal dialysis End-stage renal disease (ESRD) Diabetic foot ulcer associated with type 2 diabetes mellitus Cardiomyopathy HFrEF (heart failure with reduced ejection fraction) delivery delivered Anemia in chronic kidney disease (CKD) CKD (chronic kidney disease) Abnormal finding on echocardiogram Elevated troponin Acute worsening of stage 3 chronic kidney disease Generalized edema Sepsis Cellulitis Pleural effusion Atypical chest pain Bone infection PAD (peripheral artery disease) Cellulitis and abscess of foot Osteomyelitis Asthma Depression with anxiety Diabetic retinopathy Blind right eye Diabetes Back pain Family History Family History Mother Coronary artery disease Myocardial infarction Stroke Diabetes mellitus Father Myocardial infarction Surgical History Surgical History Tubal ligation status Previous section Hx laparoscopic cholecystectomy Hx of surgical procedure (~09/11/23) 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 Social History Social History Household Members: Family Household Members Other:: sister, brother, [id number] Housing: Apartment Housing Other:: Apartment, 1st floor Are you a primary managed care specialist to a significant other at home: No Do you presently have visiting nurse or other home services: Yes (STATISTICAL CONSULTANT) Unable to assess alcohol history related to: Unknown Alcohol intake: never Comment: refused camera Patient Tobacco Use Status: Never used Tobacco Smoked in Last 30 Days: No e-Cigarette/Vaping Use: Never Used Patient Interested in Nicotine Replacement: No Patient Given Instructions on How to Stop Smoking: No Second Hand Smoke Exposure: No Currently Displaying Signs/Symptoms of Drug Intoxication Withdrawal: No Have you been hit, kicked, punched, or otherwise hurt by someone within the past year? If so, by whom?: No Do you feel safe in your current relationship?: No Current Relationship Is there a partner from a previous relationship who is making you feel unsafe now?: No Are you made to feel afraid or neglected: No Advance Directives: Yes Advance Directives Information Provided: No Advance Directives on File: Yes Advance Directives Date on File: 08/28/23 Do you have a plan to hurt others: No Plan Recently lost weight without trying: No Nutrition Risks: No Nutritional Risk Patient : No : No Poor oral hygiene: No service: No Current occupational status: unemployed and disabled Gender identity: Female Meds Allergies Allergy/AdvReac Type Severity Reaction Status Date / Time gabapentin Allergy Severe Facial Verified 09/04/24 21:42 Swelling tramadol Allergy Severe Facial Verified 09/04/24 21:42 Swelling vancomycin Allergy Severe Anaphylaxis Verified 09/04/24 21:42 azithromycin (From Zithromax) Allergy Intermediate Hives Verified 09/04/24 21:42 morphine (MORPHINE) Allergy Intermediate Itching Verified 09/04/24 21:42 Active Medications: Current Medications Albuterol Sulfate (Albuterol Sulfate 90 Mcg 8 Gm Inhaler) 2 puff INHALE Q6H PRN PRN Reason: Wheezing Atorvastatin Calcium (Atorvastatin Calcium 20 Mg Tablet) 20 mg PO BEDTIME [facility] Last Admin: 09/05/24 21:39 Dose: 20 mg Calcium Carbonate (Calcium Carbonate 750 Mg Tab.Chew) 750 mg PO TIDWM PRN PRN Reason: Acid Reflux Carvedilol (Carvedilol 12.5 Mg Tablet) 12.5 mg PO BID [facility]; Protocol Last Admin: 09/06/24 09:02 Dose: 12.5 mg Dextrose (Dextrose 50 % 25 Gm/50 Ml Syringe) 25 gm IVPUSH Q15M PRN; Protocol PRN Reason: per Hypoglycemia Standing Ord. Diphenhydramine HCl (Diphenhydramine Hcl 12.5 Mg/5 Ml Liquid) 25 mg PO Q6H PRN PRN Reason: Itching Last Admin: 09/06/24 13:58 Dose: 25 mg Glucose (Glucose Gel 15 Gm Gel..Gram.) 15 gm PO Q15M PRN; Protocol PRN Reason: per Hypoglycemia Standing Ord. Hydralazine HCl (Hydralazine Hcl 50 Mg Tablet) 50 mg PO TID [facility]; Protocol Last Admin: 09/06/24 13:57 Dose: 50 mg Acetaminophen (Ofirmev) 1,000 mg in 100 mls @ 400 mls/hr IV ONCE ONE Stop: 09/06/24 15:48 Insulin Glargine (Insulin Glargine,Hum.Rec.Anlog 100 Unit/Ml 10 Ml Vial) 10 unit SUBCUT BEDTIME [facility] Insulin Human Lispro (Insulin Lispro 100 Unit/Ml 3 Ml Vial) 0 unit SUBCUT QIDACHS [facility]; Protocol Last Admin: 09/06/24 11:04 Dose: 6 unit Lidocaine (Lidocaine 4 % Patch Adh..Patch) 1 patch TRANSDERMA DAILY PRN PRN Reason: Pain Methylprednisolone Sodium Succinate (Methylprednisolone Sod Succ 125 Mg/2 Ml Vial) 500 mg IVPUSH Q24H [facility] Stop: 09/08/24 16:44 Last Admin: 09/05/24 17:40 Dose: 500 mg Ondansetron HCl (Ondansetron Odt 4 Mg Tab.Rapdis) 4 mg TRANSLINGU Q8H PRN PRN Reason: Nausea and Vomiting Oxycodone HCl (Oxycodone Hcl Immed Release 5 Mg Tablet) 5 mg PO Q4H PRN PRN Reason: Pain, Moderate(Pain Scale 4-6) Last Admin: 09/06/24 13:57 Dose: 5 mg Sodium Chloride (0.9 % Sodium Chloride Flush 3 Ml Syringe) [facility] Last Admin: 09/06/24 09:03 Dose: 3 ml Trazodone HCl (Trazodone Hcl 25 Mg Halftab) 25 mg PO BEDTIME PRN PRN Reason: Sleep Home Medications ?Medication ?Instructions ?Recorded ?Confirmed ?Last Taken ?Type albuterol sulfate 90 mcg/actuation 2 puff inhalation Q6H PRN wheezing 01/15/24 09/05/24 08/18/24 History aerosol inhaler (Ventolin HFA) lidocaine 5 % topical patch 1 patch topical DAILY PRN Pain 01/15/24 09/05/24 02/24/24 History nitroglycerin 0.4 mg sublingual 0.4 mg sublingual DIRECTED PRN 01/15/24 09/05/24 Unknown History tablet Angina acetaminophen 325 mg tablet 650 mg PO Q4H PRN mild pain 03/11/24 09/05/24 Unknown History calcium carbonate (Tums) 200 mg PO TIDWM PRN Acid Reflux 07/03/24 09/05/24 Unknown History oxycodone 5 mg tablet 5 mg PO TID PRN Pain 08/27/24 09/05/24 Unknown History Physical Exam Vital Signs: Vital Signs: Last Vital Signs Temp 97.2 F 09/06/24 15:19 Pulse 91 09/06/24 15:19 Resp 18 09/06/24 15:19 BP 134/63 09/06/24 15:19 Pulse Ox 97 09/06/24 15:19 O2 Del Method Room Air 09/06/24 15:19 BMI result Body Mass Index 29.5 Neuro: Other: Bilaterally blind alert and awake with normal spontaneity of speech fluency comprehension and affect. She was not in any distress. Right-sided weakness has improved. Results Labs 09/05/24 07:57 09/05/24 07:57 Assessment and Plan (1) Multiple sclerosis: Status: Acute Probably remitting relapsing multiple sclerosis in this unfortunate woman with bilateral blindness, end-stage renal disease on dialysis, and bilateral toe amputations. Her logistical issues were complicated and compliance was questionable. As far as multiple sclerosis is concerned, I recommend starting her on an oral pill as injectable drugs or infusion would be a difficult option for her. I recommend Aubagio 7 mg daily, which can be started as an outpatient. A lumbar puncture was spinal fluid analysis would help to define diagnosis. If CSF is obtained, I recommend checking CSF glucose, protein, cells, drift, oligoclonal bands, g stain and culture. Procedures Date of Service Date of Service: 09/06/24
[2024-09-06 16:06] LABS: Glucose, Whole Blood 473 mg/dL (60-115)
[2024-09-06 20:25] LABS: Glucose, Whole Blood 479 mg/dL (60-115)
[2024-09-06] MEDS: Insulin Glargine,Hum.rec.anlog 100 UNIT/ML 10 ML VIAL 10 UNIT SUBCUT (20:47)
[2024-09-06] MEDS: traZODone HCL 25 MG HALFTAB PO (20:59)
[2024-09-06 22:07] LABS: Glucose, Whole Blood 422 mg/dL (60-115)
[2024-09-07] VITALS (10 sets, daily range): BP systolic 128–170; BP diastolic 67–90; PULSE 75–94; RESP 16–18; TEMP 36.2–36.8; O2SAT 95–99; BMI 30.7
[2024-09-07] MEDS: oxyCODONE HCl Immed Release 5 MG TABLET PO ×5 (00:04→20:44)
[2024-09-07 07:27] LABS: Glucose, Whole Blood 459 mg/dL (60-115)
[2024-09-07] MEDS: 0.9 % Sodium Chloride Flush 3 ML SYRINGE IVFLUSH ×3 (08:43→20:47)
[2024-09-07 11:02] LABS: Glucose, Whole Blood 474 mg/dL (60-115)
[2024-09-07] MEDS: Insulin Glargine,Hum.rec.anlog 100 UNIT/ML 10 ML VIAL SUBCUT (11:31)
--- NOTE | 2024-09-07 11:56 | HO.PM.IMPN ---
Subjective Subjective Date of Service: 09/07/24 Interval History: Seen and examined this morning Follow-up for right-sided weakness getting high-dose steroids - says right side weakness getting better Blood sugar elevated Requesting pain medication Review of Systems Review of Systems: Yes all other systems are reviewed and are negative Constitutional Constitutional: Denies fever(s) Physical Exam Vital Signs: Vital Signs: Last Vital Signs Temp 97.2 F 09/07/24 11:36 Pulse 85 09/07/24 11:36 Resp 18 09/07/24 11:36 BP 162/90 H 09/07/24 11:36 Pulse Ox 97 09/07/24 11:36 O2 Del Method Room Air 09/07/24 11:36 BMI result Body Mass Index 30.7 Const: General: cooperative, comfortable, no acute distress, alert and awake Nutritional Appearance: average body habitus Orientation/consciousness: patient oriented x3 Eyes: Other: right eye blind Resp: Effort & Inspection: normal respiratory effort, able to speak in complete sentences, no respiratory distress and no use of accessory muscles Cardio: Rate: regular rate GI: Inspection: No distended Palpation (GI): Soft to palpation and nontender Skin: Other: right foot left foot Neuro: Other: RUE/RLE reported heaviness, 4/5 strength General: patient oriented x3 Extrem: Other: b/l transmetatarsal amputation Objective Data Active Medications Albuterol Sulfate (Albuterol Sulfate 90 Mcg 8 Gm Inhaler) 2 puff INHALE Q6H PRN PRN Reason: Wheezing Atorvastatin Calcium (Atorvastatin Calcium 20 Mg Tablet) 20 mg PO BEDTIME [facility] Last Admin: 09/06/24 21:00 Dose: Not Given Documented By: YOLIS Non-Admin Reason: Patient Refused Calcium Carbonate (Calcium Carbonate 750 Mg Tab.Chew) 750 mg PO TIDWM PRN PRN Reason: Acid Reflux Carvedilol (Carvedilol 12.5 Mg Tablet) 12.5 mg PO BID [facility]; Protocol Last Admin: 09/07/24 08:42 Dose: 12.5 mg Documented By: LAILA Dextrose (Dextrose 50 % 25 Gm/50 Ml Syringe) 25 gm IVPUSH Q15M PRN; Protocol PRN Reason: per Hypoglycemia Standing Ord. Diphenhydramine HCl (Diphenhydramine Hcl 12.5 Mg/5 Ml Liquid) 25 mg PO Q6H PRN PRN Reason: Itching Last Admin: 09/07/24 11:30 Dose: 25 mg Documented By: LAILA Glucose (Glucose Gel 15 Gm Gel..Gram.) 15 gm PO Q15M PRN; Protocol PRN Reason: per Hypoglycemia Standing Ord. Hydralazine HCl (Hydralazine Hcl 50 Mg Tablet) 50 mg PO TID [facility]; Protocol Last Admin: 09/07/24 08:42 Dose: 50 mg Documented By: LAILA Insulin Glargine (Insulin Glargine,Hum.Rec.Anlog 100 Unit/Ml 10 Ml Vial) 15 unit SUBCUT BEDTIME [facility] Insulin Human Lispro (Insulin Lispro 100 Unit/Ml 3 Ml Vial) 0 unit SUBCUT QIDACHS [facility]; Protocol Last Admin: 09/07/24 11:30 Dose: 10 unit Documented By: LAILA Lidocaine (Lidocaine 4 % Patch Adh..Patch) 1 patch TRANSDERMA DAILY PRN PRN Reason: Pain Methylprednisolone Sodium Succinate (Methylprednisolone Sod Succ 125 Mg/2 Ml Vial) 500 mg IVPUSH Q24H [facility] Stop: 09/08/24 16:44 Last Admin: 09/06/24 15:50 Dose: 500 mg Documented By: LAILA Ondansetron HCl (Ondansetron Odt 4 Mg Tab.Rapdis) 4 mg TRANSLINGU Q8H PRN PRN Reason: Nausea and Vomiting Oxycodone HCl (Oxycodone Hcl Immed Release 5 Mg Tablet) 5 mg PO Q4H PRN PRN Reason: Pain, Moderate(Pain Scale 4-6) Last Admin: 09/07/24 11:30 Dose: 5 mg Documented By: LAILA Sodium Chloride (0.9 % Sodium Chloride Flush 3 Ml Syringe) 3 ml IVFLUSH QSHIFT [facility] Last Admin: 09/07/24 08:43 Dose: 3 ml Documented By: LAILA Trazodone HCl (Trazodone Hcl 25 Mg Halftab) 25 mg PO BEDTIME PRN PRN Reason: Sleep Last Admin: 09/06/24 20:59 Dose: 25 mg Documented By: FOSTEKR Labs 09/05/24 07:57 09/05/24 07:57 Labs: Laboratory Results - last 24 hr 07/02/1909/06/24 09/06/24 16:01 20:19 22:02 POC Glucose 473 H* 479 H* 422 H* 09/07/24 09/07/24 07:24 10:58 POC Glucose 459 H* 474 H* Assessment and Plan (1) Multiple sclerosis: Status: Acute (2) Diabetes: Status: Acute Plan This is a 34-year-old female with a PMH significant for?ESRD on HD //Sun, [id number] 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, PAD s/p bilateral TMA, poorly controlled hypertension due to medication noncompliance, chronic hypoxemic respiratory failure on 3-4 L baseline supplemental oxygen prn, HFrEF, hx of multiple dialysis catheter line infections with bacteremia with MSSA, stenotrophomonas, and Pseudomonas, mood disorder, and chronic pain with opioid seeking behavior who presents to the ED weakness initially thought to be due to acute stroke s/p TNK and admitted to the ICU for close neurological evaluation, downgraded to the medical floor on September 05 RUE Weakness Recently diagnosed with multiple sclerosis CT and CTA negative for acute findings MRI again showing demyelinating plaques, no evidence of acute stroke seen by neurology -recommend 3 days of IV steroids and LP to confirm diagnosis of MS - ordered for Sunday will need outpatient follow up with neurology, recommend starting on aubagio 7 mg daily as outpatient [id number] 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 last day of IV steroids With diabetic polyneuropathy/retinopathy SSI, POCs, diabetic diet lantus dose increased follow blood sugar closely ESRD on HD / Nephrology consult, follows with [facility]ANE Follow BMP continue HD while inpatient Elevated troponin chronically elevated troponins No signs of ACS HTN bp chronically uncontrolled Continue carvedilol, hydralazine Chronic hypoxemic respiratory failure Pt on 3-4 L NC at home - uses intermittently currently mid to high 90s on room air HRrEF Continue carvedilol Treat with dialysis as above Chronic pain with opioid seeking behavior avoid IV narcotics if possible for good neuro checks Full Code DVT Prophylaxis: Pneumatic compression seen by PT - rec home with PT services. (pt has previously refused home services) Patient will need inpatient stay overnight for treatment with IV steroids, plan for LP, blood sugar control Quality Stroke Does the patient have a stroke diagnosis?: No VTE Prior VTE?: No VTE Risk Level:: Medical - moderate - high VTE Device Contraindication: N/A - Device Ordered VTE Drug Contraindication: Treatment Not Indicated
[2024-09-07 14:06] LABS: Glucose, Whole Blood 427 mg/dL (60-115)
[2024-09-07 16:14] LABS: Glucose, Whole Blood 362 mg/dL (60-115)
[2024-09-07] MEDS: traZODone HCL 25 MG HALFTAB PO (20:43)
[2024-09-08 03:05] VITALS: BP 122/67; PULSE 71; RESP 18; TEMP 36.4
--- NOTE | 2024-09-08 03:09 | PC.NURSE ---
Patient refused nursing care, vital signs and blood glucose test.
[2024-09-08 05:55] VITALS: BMI 32.1
[2024-09-08] MEDS: oxyCODONE HCl Immed Release 5 MG TABLET PO ×2 (06:00→18:21)
[2024-09-08 07:16] VITALS: BP 116/63; PULSE 73; RESP 18; TEMP 36.8; O2SAT 98
[2024-09-08 07:30] LABS: Glucose, Whole Blood 554 mg/dL (60-115)
[2024-09-08 08:42] VITALS: BP 120/64; PULSE 73
[2024-09-08] MEDS: 0.9 % Sodium Chloride Flush 3 ML SYRINGE IVFLUSH ×3 (08:42→20:46)
[2024-09-08 11:13] VITALS: BP 160/97; PULSE 74; RESP 18; TEMP 36.2; O2SAT 100
--- NOTE | 2024-09-08 11:30 | P.PNIM_ITS ---
Subjective Subjective Date of Service: 09/08/24 Interval History: Follow-up for right-sided weakness getting high-dose steroids - says right side weakness better Blood sugar elevated Requesting pain medication Review of Systems Review of Systems: Yes all other systems are reviewed and are negative Constitutional Constitutional: Denies fever(s) Physical Exam 2 Vital Signs: Vital Signs: Last Vital Signs Temp 97.2 F 09/08/24 11:13 Pulse 74 09/08/24 11:13 Resp 18 09/08/24 11:13 BP 160/97 H 09/08/24 11:13 Pulse Ox 100 09/08/24 11:13 O2 Del Method Room Air 09/08/24 07:16 BMI result Body Mass Index 32.1 Appearing in no acute distress lung sounds are clear to auscultation heart regular rate rhythm, clear S1, S2 positive bowel sounds, abdomen is soft, nontender neuro patient is alert x3, no focal deficits Objective Data Active Medications Albuterol Sulfate (Albuterol Sulfate 90 Mcg 8 Gm Inhaler) 2 puff INHALE Q6H PRN PRN Reason: Wheezing Atorvastatin Calcium (Atorvastatin Calcium 20 Mg Tablet) 20 mg PO BEDTIME [facility] Last Admin: 09/07/24 20:43 Dose: 20 mg Documented By: LEXX Calcium Carbonate (Calcium Carbonate 750 Mg Tab.Chew) 750 mg PO TIDWM PRN PRN Reason: Acid Reflux Carvedilol (Carvedilol 12.5 Mg Tablet) 12.5 mg PO BID [facility]; Protocol Last Admin: 09/08/24 08:42 Dose: 12.5 mg Documented By: CHET Dextrose (Dextrose 50 % 25 Gm/50 Ml Syringe) 25 gm IVPUSH Q15M PRN; Protocol PRN Reason: per Hypoglycemia Standing Ord. Diazepam (Diazepam 10 Mg/2 Ml Cartridge) 5 mg IVPUSH ONCE PRN PRN Reason: anxiety Glucose (Glucose Gel 15 Gm Gel..Gram.) 15 gm PO Q15M PRN; Protocol PRN Reason: per Hypoglycemia Standing Ord. Hydralazine HCl (Hydralazine Hcl 50 Mg Tablet) 50 mg PO TID [facility]; Protocol Last Admin: 09/08/24 08:42 Dose: 50 mg Documented By: CHET Hydromorphone HCl (Hydromorphone Hcl 0.5 Mg/0.5 Ml Syringe) 0.5 mg IVPUSH ONCE ONE; Protocol Stop: 09/08/24 11:28 Insulin Glargine (Insulin Glargine,Hum.Rec.Anlog 100 Unit/Ml 10 Ml Vial) 15 unit SUBCUT BEDTIME [facility] Last Admin: 09/07/24 20:52 Dose: Not Given Documented By: LEXX Non-Admin Reason: Patient Refused Insulin Human Lispro (Insulin Lispro 100 Unit/Ml 3 Ml Vial) 0 unit SUBCUT QIDACHS [facility]; Protocol Last Admin: 09/08/24 08:42 Dose: 10 unit Documented By: CHET Lidocaine (Lidocaine 4 % Patch Adh..Patch) 1 patch TRANSDERMA DAILY PRN PRN Reason: Pain Methylprednisolone Sodium Succinate (Methylprednisolone Sod Succ 125 Mg/2 Ml Vial) 500 mg IVPUSH Q24H [facility] Stop: 09/08/24 16:44 Last Admin: 09/07/24 16:42 Dose: 500 mg Documented By: LAILA Ondansetron HCl (Ondansetron Odt 4 Mg Tab.Rapdis) 4 mg TRANSLINGU Q8H PRN PRN Reason: Nausea and Vomiting Last Admin: 09/07/24 12:33 Dose: 4 mg Documented By: LAILA Oxycodone HCl (Oxycodone Hcl Immed Release 5 Mg Tablet) 5 mg PO Q4H PRN PRN Reason: Pain, Moderate(Pain Scale 4-6) Last Admin: 09/08/24 06:00 Dose: 5 mg Documented By: LEXX Sodium Chloride (0.9 % Sodium Chloride Flush 3 Ml Syringe) [facility] Last Admin: 09/08/24 08:42 Dose: 3 ml Documented By: CHET Trazodone HCl (Trazodone Hcl 25 Mg Halftab) 25 mg PO BEDTIME PRN PRN Reason: Sleep Last Admin: 09/07/24 20:43 Dose: 25 mg Documented By: LEXX Labs 09/05/24 07:57 09/05/24 07:57 Labs: Laboratory Results - last 24 hr 09/07/24 09/07/24 09/08/24 14:02 16:09 07:24 POC Glucose 427 H* 362 H* 554 H* Assessment and Plan (1) Multiple sclerosis: Status: Acute (2) Diabetes: Status: Acute Plan 34-year-old female with a PMH significant for?ESRD on HD /, [id number] 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, PAD s/p bilateral TMA, poorly controlled hypertension due to medication noncompliance, chronic hypoxemic respiratory failure on 3-4 L baseline supplemental oxygen prn, HFrEF, hx of multiple dialysis catheter line infections with bacteremia with MSSA, stenotrophomonas, and Pseudomonas, mood disorder, and chronic pain with opioid seeking behavior who presents to the ED weakness initially thought to be due to acute stroke s/p TNK and admitted to the ICU for close neurological evaluation, downgraded to the medical floor on September 05 RUE Weakness Recently diagnosed with multiple sclerosis CT and CTA negative for acute findings MRI again showing demyelinating plaques, no evidence of acute stroke seen by neurology>s/p 3 days of IV steroids LP to confirm diagnosis of MS will need outpatient follow up with neurology, recommend starting on aubagio 7 mg daily as outpatient Obe-bxsbraa-ctlegeigk 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 With diabetic polyneuropathy/retinopathy SSI, POCs, diabetic diet lantus dose increased follow blood sugar closely ESRD on HD / Nephrology consult, follows with [facility] Follow BMP continue HD while inpatient Elevated troponin chronically elevated troponins No signs of ACS HTN bp chronically uncontrolled Continue carvedilol, hydralazine Chronic hypoxemic respiratory failure Pt on 3-4 L NC at home - uses intermittently currently mid to high 90s on room air HRrEF Continue carvedilol Treat with dialysis as above Chronic pain with opioid seeking behavior avoid IV narcotics if possible for good neuro checks Full Code DVT Prophylaxis: Pneumatic compression seen by PT - rec home with PT services. (pt has previously refused home services) Quality Stroke Does the patient have a stroke diagnosis?: No VTE Prior VTE?: No VTE Risk Level:: Medical - moderate - high VTE Device Contraindication: N/A - Device Ordered VTE Drug Contraindication: Treatment Not Indicated
[2024-09-08 12:09] VITALS: BP 148/88
[2024-09-08 12:11] LABS: Glucose, Whole Blood 400 mg/dL (60-115)
--- NOTE | 2024-09-08 13:21 | HO.WOUND ---
Wound Consult: Follow up 34yr old [place] [facility] [place] - See progress notes and H&P for detailed history.? This patient is known to this designer writer for frequent readmissions see chart for history.? Wound consult for Bilateral lower foot wounds.? Wound assessed today and detailed below. No new topicall recommendations needed today. Left Heel? - Diabetic Wound - almost fully resurfaced tissue - no topical recommendations applied elevate heels off of bed surface with pillows. Do not apply foam dressing to heels. Left Plantar Diabetic Wound? - chronic open wound - no sough noted - thick dry callus to wound edge - recommend Durafiber AG Left Lateral Foot with dark pigmentation changes - notied in past - no open tissue noted - recommend protecting from pressure and friction. Right Plantar Diabetic Wound? -open chronic wound bed dry red scabbed wound bed - recommend Durafiber AG Right Dorsal Diabetic Wound? - open tissue loss -pale pink clean wound bed - recommend Durafiber AG Recommendations: 1. Turn and Reposition every 2 hours and as needed for patient comfort.? Use pillows or wedges to support off loading positions. 2. Off Load all bony prominences with use of pillows and heel boots if needed.? Apply Preventative foams where needed. ? 3. Monitor for incontinence and moisture control, use barrier creams when needed for prevention and treatment. 4. Provide adequate and supplemental nutrition.? 5. Order low air loss mattress. 6. When applicable maintain blood glucose levels per Providers order. Left foot and Right Foot open wounds - Elevate heels off of bed surface with pillows.? Cleanse with saline, pat dry. ?Apply Durafiber to the wound bed cover with dry gauze ABD pad and wrap. change every other day. Re-consult wound care Nurse for wound deterioration or wound changes.
--- NOTE | 2024-09-08 13:54 | MHC.CM.PN ---
EMR REVIEWED, PT W/R SIDEED WEAKNESS, WORK-UP NEG FOR STROKE, PT W/DEMYELINATING DISEASE/MS, WILL NEED OUTPT FOLLOW-UP W/NEURO WHO RECOMMEND TO START AUBAGIO 7MG OUTPT, PT WILL CONT RECEIVING HIGH DOSE STEROIDS, HD TUES/THURS/SAT, ANTIC PT WILL DC HOME W/SISTER ONCE MEDICALLY CLEARED.
[2024-09-08] MEDS: diazePAM 10 MG/2 ML CARTRIDGE 5 MG IVPUSH (13:59)
[2024-09-08 15:15] VITALS: BP 158/84; PULSE 78; RESP 18; TEMP 36.4; O2SAT 96
[2024-09-08 15:31] LABS: Glucose, Whole Blood 292 mg/dL (60-115)
[2024-09-08 17:31] LABS: Lymphocytes CSF 50 %; Red Blood Cell CSF 3 MM*3; White Blood Cell CSF 2 MM*3
[2024-09-08 17:57] LABS: Anion Gap 21 (12-20); Blood Urea Nitrogen 99 mg/dL (9-16); Calcium 7.1 mg/dL (8.4-10.2); Carbon Dioxide 20 mmol/L (22-29); Chloride 93 mmol/L (96-108); Creatinine Clr Calc Pharmacy 10.5; Estimated Glomerular Filt Rate 5; Potassium 6.6 mmol/L (3.3-5.1); Sodium 127 mmol/L (135-145)
[2024-09-08] MEDS: traZODone HCL 25 MG HALFTAB PO (20:47)
[2024-09-08] MEDS: Insulin Glargine,Hum.rec.anlog 100 UNIT/ML 10 ML VIAL 15 UNIT SUBCUT (20:53)
[2024-09-09] VITALS (7 sets, daily range): BP systolic 92–144; BP diastolic 53–68; PULSE 70–90; RESP 16–18; TEMP 36.4–36.9; O2SAT 95–98; BMI 33.2
--- NOTE | 2024-09-09 01:16 | PM.CNNEP ---
History of Present Illness Reason for Consult Consult date: 09/08/24 Chief Complaint Chief complaint: ischamic stroke post tpa History of Present Illness Narrative: [facility] consulted for ESRD and Dialysis management Adm with ques CVA and seen by neuro and recently Dx'd with MS and now getting pulse STD treatemnt Multiple chronic med prob as noted below including ESRD and HD TTS Review of Systems Review of Systems She was complaining of pain though she was not in any distress. Yes all other systems are reviewed and are negative Constitutional: Denies chills and Denies fever(s) PMFSH Past Medical History Medical History ESRD on dialysis Hypoxia End stage renal disease on dialysis Chronic ulcer of right foot due to diabetes mellitus Chronic ulcer of left foot due to diabetes mellitus DM foot ulcer ESRD on hemodialysis Hypotonic neurogenic bladder Diabetic polyneuropathy Hypertensive emergency Decompensated heart failure Renal failure Hypertension, uncontrolled Medical non-compliance Pericarditis Unspecified hypertension, condition or complication Metabolic acidosis Gastroparesis End stage chronic kidney disease Chronic kidney disease Anemia Plantar ulcer of left foot MDD (major depressive disorder) CKD (chronic kidney disease) Hypertension Hyperkalemia Vomiting Chronic pain Non-compliance with renal dialysis End-stage renal disease (ESRD) Diabetic foot ulcer associated with type 2 diabetes mellitus Cardiomyopathy HFrEF (heart failure with reduced ejection fraction) delivery delivered Anemia in chronic kidney disease (CKD) CKD (chronic kidney disease) Abnormal finding on echocardiogram Elevated troponin Acute worsening of stage 3 chronic kidney disease Generalized edema Sepsis Cellulitis Pleural effusion Atypical chest pain Bone infection PAD (peripheral artery disease) Cellulitis and abscess of foot Osteomyelitis Asthma Depression with anxiety Diabetic retinopathy Blind right eye Diabetes Back pain Family History Family History Mother Coronary artery disease Myocardial infarction Stroke Diabetes mellitus Father Myocardial infarction Surgical History Surgical History Tubal ligation status Previous section Hx laparoscopic cholecystectomy Hx of surgical procedure (~09/11/23) 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 Social History Social History Household Members: Family Household Members Other:: sister, brother, [id number] Housing: Apartment Housing Other:: Apartment, 1st floor Are you a primary child care teacher to a significant other at home: No Do you presently have visiting nurse or other home services: Yes ([employer]) Unable to assess alcohol history related to: Unknown Alcohol intake: never Comment: refused camera Patient Tobacco Use Status: Never used Tobacco e-Cigarette/Vaping Use: Never Used Second Hand Smoke Exposure: No Advance Directives Date on File: 08/28/23 service: No Current occupational status: unemployed and disabled Gender identity: Female Meds Allergies Allergy/AdvReac Type Severity Reaction Status Date / Time gabapentin Allergy Severe Facial Verified 09/04/24 21:42 Swelling tramadol Allergy Severe Facial Verified 09/04/24 21:42 Swelling vancomycin Allergy Severe Anaphylaxis Verified 09/04/24 21:42 azithromycin (From Zithromax) Allergy Intermediate Hives Verified 09/04/24 21:42 morphine (MORPHINE) Allergy Intermediate Itching Verified 09/04/24 21:42 Active Medications: Current Medications Albuterol Sulfate (Albuterol Sulfate 90 Mcg 8 Gm Inhaler) 2 puff INHALE Q6H PRN PRN Reason: Wheezing Atorvastatin Calcium (Atorvastatin Calcium 20 Mg Tablet) 20 mg PO BEDTIME [facility] Last Admin: 09/08/24 20:47 Dose: 20 mg Calcium Carbonate (Calcium Carbonate 750 Mg Tab.Chew) 750 mg PO TIDWM PRN PRN Reason: Acid Reflux Carvedilol (Carvedilol 12.5 Mg Tablet) 12.5 mg PO BID [facility]; Protocol Last Admin: 09/08/24 20:47 Dose: 12.5 mg Dextrose (Dextrose 50 % 25 Gm/50 Ml Syringe) 25 gm IVPUSH Q15M PRN; Protocol PRN Reason: per Hypoglycemia Standing Ord. Diazepam (Diazepam 10 Mg/2 Ml Cartridge) 5 mg IVPUSH ONCE PRN PRN Reason: anxiety Last Admin: 09/08/24 13:59 Dose: 5 mg Glucose (Glucose Gel 15 Gm Gel..Gram.) 15 gm PO Q15M PRN; Protocol PRN Reason: per Hypoglycemia Standing Ord. Hydralazine HCl (Hydralazine Hcl 50 Mg Tablet) 50 mg PO TID [facility]; Protocol Last Admin: 09/08/24 20:47 Dose: 50 mg Hydromorphone HCl (Hydromorphone Hcl 0.5 Mg/0.5 Ml Syringe) 0.5 mg IVPUSH Q8H PRN; Protocol PRN Reason: Pain, Severe (Pain Scale 7-10) Last Admin: 09/09/24 00:37 Dose: 0.5 mg Insulin Glargine (Insulin Glargine,Hum.Rec.Anlog 100 Unit/Ml 10 Ml Vial) 15 unit SUBCUT BEDTIME [facility] Last Admin: 09/08/24 20:53 Dose: 15 unit Insulin Human Lispro (Insulin Lispro 100 Unit/Ml 3 Ml Vial) 0 unit SUBCUT QIDACHS [facility]; Protocol Last Admin: 09/08/24 20:53 Dose: Not Given Insulin Human Lispro (Insulin Lispro 100 Unit/Ml 3 Ml Vial) 10 unit SUBCUT QIDACHS [facility] Last Admin: 09/08/24 20:54 Dose: Not Given Lidocaine (Lidocaine 4 % Patch Adh..Patch) 1 patch TRANSDERMA DAILY PRN PRN Reason: Pain Ondansetron HCl (Ondansetron Odt 4 Mg Tab.Rapdis) 4 mg TRANSLINGU Q8H PRN PRN Reason: Nausea and Vomiting Last Admin: 09/07/24 12:33 Dose: 4 mg Oxycodone HCl (Oxycodone Hcl Immed Release 5 Mg Tablet) 5 mg PO Q4H PRN PRN Reason: Pain, Moderate(Pain Scale 4-6) Last Admin: 09/08/24 18:21 Dose: 5 mg Sodium Chloride (0.9 % Sodium Chloride Flush 3 Ml Syringe) 3 ml IVFLUSH [facility] Last Admin: 09/08/24 20:46 Dose: 3 ml Trazodone HCl (Trazodone Hcl 25 Mg Halftab) 25 mg PO BEDTIME PRN PRN Reason: Sleep Last Admin: 09/08/24 20:47 Dose: 25 mg Home Medications ?Medication ?Instructions ?Recorded ?Confirmed ?Last Taken ?Type albuterol sulfate 90 mcg/actuation 2 puff inhalation Q6H PRN wheezing 01/15/24 09/05/24 08/18/24 History aerosol inhaler (Ventolin HFA) lidocaine 5 % topical patch 1 patch topical DAILY PRN Pain 01/15/24 09/05/24 02/24/24 History nitroglycerin 0.4 mg sublingual 0.4 mg sublingual DIRECTED PRN 01/15/24 09/05/24 Unknown History tablet Angina acetaminophen 325 mg tablet 650 mg PO Q4H PRN mild pain 03/11/24 09/05/24 Unknown History calcium carbonate (Tums) 200 mg PO TIDWM PRN Acid Reflux 07/03/24 09/05/24 Unknown History oxycodone 5 mg tablet 5 mg PO TID PRN Pain 08/27/24 09/05/24 Unknown History Physical Exam Vital Signs: Last Vital Signs Temp 97.9 F 09/09/24 00:00 Pulse 70 09/09/24 00:00 Resp 16 09/09/24 00:00 BP 143/68 H 09/09/24 00:00 Pulse Ox 98 09/09/24 00:00 O2 Del Method Room Air 09/09/24 00:00 BMI result Body Mass Index 32.1 Const General: cooperative, comfortable, no acute distress, alert and awake Nutritional Appearance: average body habitus Orientation/consciousness: patient oriented x3 Eyes Other: right eye blind Resp Effort & Inspection: normal respiratory effort, able to speak in complete sentences, no respiratory distress and no use of accessory muscles Cardio Rate: regular rate GI Inspection: No distended Palpation (GI): Soft to palpation and nontender Skin Other: right foot left foot Neuro Other: RUE/RLE reported heaviness, 4/5 strength General: patient oriented x3 Extrem Other: b/l transmetatarsal amputation Results Lab Results 09/05/24 07:57 09/08/24 17:07 Lab results: Chemistry 09/08/24 17:07 Sodium 127 L Potassium 6.6 H* D Carbon Dioxide 20 L BUN 99 H Creatinine 8.29 H* Calcium 7.1 L D Assessment and Plan (1) Multiple sclerosis: Status: Acute (2) Diabetes: Status: Acute Plan 34-year-old female with a PMH significant for?ESRD on HD //Sun, [id number]-iggwqnskt 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, PAD s/p bilateral TMA, poorly controlled hypertension due to medication noncompliance, chronic hypoxemic respiratory failure on 3-4 L baseline supplemental oxygen prn, HFrEF, hx of multiple dialysis catheter line infections with bacteremia with MSSA, stenotrophomonas, and Pseudomonas, mood disorder, and chronic pain with opioid seeking behavior who presents to the ED weakness initially thought to be due to acute stroke s/p TNK and admitted to the ICU for close neurological evaluation, downgraded to the medical floor on September 05 ESRD: cont HD TTS MS: as per Neuro Nephrogenic Anemia REC: ocnt HD TTS, meds as noted Will follow with team Procedures Date of Service Date of Service: 09/09/24
[2024-09-09 02:32] LABS: Potassium 6.9 mmol/L (3.3-5.1)
[2024-09-09] MEDS: Calcium Gluconate/NaCl,Iso-Osm 2 GM/100 ML PLAST..BAG IV (02:56)
[2024-09-09 07:13] LABS: Glucose, Whole Blood 341 mg/dL (60-115)
[2024-09-09] MEDS: 0.9 % Sodium Chloride Flush 3 ML SYRINGE IVFLUSH ×2 (07:59→15:16)
[2024-09-09 09:14] LABS: Anion Gap 24 (12-20); Blood Urea Nitrogen 116 mg/dL (9-16); Calcium 6.6 mg/dL (8.4-10.2); Carbon Dioxide 22 mmol/L (22-29); Chloride 90 mmol/L (96-108); Creatinine Clr Calc Pharmacy 9.4; Estimated Glomerular Filt Rate 5; Potassium 6.4 mmol/L (3.3-5.1); Sodium 130 mmol/L (135-145)
--- NOTE | 2024-09-09 09:52 | HO.PM.IMPN ---
Subjective Subjective Date of Service: 09/09/24 Interval History: Follow-up for right-sided weakness getting high-dose steroids - says right side weakness better feeling better but still c/o chronic pain Review of Systems Review of Systems: Yes all other systems are reviewed and are negative Constitutional Constitutional: Denies fever(s) Physical Exam Vital Signs: Vital Signs: Last Vital Signs Temp 97.6 F 09/09/24 07:28 Pulse 72 09/09/24 07:28 Resp 18 09/09/24 07:28 BP 137/66 09/09/24 07:28 Pulse Ox 97 09/09/24 07:28 O2 Del Method Room Air 09/09/24 07:28 BMI result Body Mass Index 33.2 Appearing in no acute distress lung sounds are clear to auscultation heart regular rate rhythm, clear S1, S2 positive bowel sounds, abdomen is soft, nontender neuro patient is alert x3, no focal deficits Objective Data Active Medications Albuterol Sulfate (Albuterol Sulfate 90 Mcg 8 Gm Inhaler) 2 puff INHALE Q6H PRN PRN Reason: Wheezing Atorvastatin Calcium (Atorvastatin Calcium 20 Mg Tablet) 20 mg PO BEDTIME VASILE Last Admin: 09/08/24 20:47 Dose: 20 mg Documented By: LEXX Calcium Carbonate (Calcium Carbonate 750 Mg Tab.Chew) 750 mg PO TIDWM PRN PRN Reason: Acid Reflux Carvedilol (Carvedilol 12.5 Mg Tablet) 12.5 mg PO BID VASILE; Protocol Last Admin: 09/08/24 20:47 Dose: 12.5 mg Dextrose (Dextrose 50 % 25 Gm/50 Ml Syringe) 25 gm IVPUSH Q15M PRN; Protocol PRN Reason: per Hypoglycemia Standing Ord. Diazepam (Diazepam 10 Mg/2 Ml Cartridge) 5 mg IVPUSH ONCE PRN PRN Reason: anxiety Last Admin: 09/08/24 13:59 Dose: 5 mg Documented By: CHET Glucose (Glucose Gel 15 Gm Gel..Gram.) 15 gm PO Q15M PRN; Protocol PRN Reason: per Hypoglycemia Standing Ord. Hydralazine HCl (Hydralazine Hcl 50 Mg Tablet) 50 mg PO TID VASILE; Protocol Last Admin: 09/08/24 20:47 Dose: 50 mg Hydromorphone HCl (Hydromorphone Hcl 0.5 Mg/0.5 Ml Syringe) 0.5 mg IVPUSH Q8H PRN; Protocol PRN Reason: Pain, Severe (Pain Scale 7-10) Last Admin: 09/09/24 08:58 Dose: 0.5 mg Documented By: DAE Insulin Glargine (Insulin Glargine,Hum.Rec.Anlog 100 Unit/Ml 10 Ml Vial) 15 unit SUBCUT BEDTIME [facility]END[facility] TO [facility] Last Admin: 09/08/24 20:53 Dose: 15 unit Documented By: LEXX Insulin Human Lispro (Insulin Lispro 100 Unit/Ml 3 Ml Vial) 0 unit SUBCUT QIDACHS [facility]END[facility] TO [facility]; Protocol Last Admin: 09/09/24 07:59 Dose: 8 unit Documented By: KESHAV Insulin Human Lispro (Insulin Lispro 100 Unit/Ml 3 Ml Vial) 10 unit SUBCUT QIDACHS [facility] TO [facility] Last Admin: 09/09/24 08:00 Dose: 10 unit Documented By: KESHAV Lidocaine (Lidocaine 4 % Patch Adh..Patch) 1 patch TRANSDERMA DAILY PRN PRN Reason: Pain Ondansetron HCl (Ondansetron Odt 4 Mg Tab.Rapdis) 4 mg TRANSLINGU Q8H PRN PRN Reason: Nausea and Vomiting Last Admin: 09/07/24 12:33 Dose: 4 mg Documented By: LAILA Oxycodone HCl (Oxycodone Hcl Immed Release 5 Mg Tablet) 5 mg PO Q4H PRN PRN Reason: Pain, Moderate(Pain Scale 4-6) Last Admin: 09/08/24 18:21 Dose: 5 mg Documented By: CHET Sodium Chloride (0.9 % Sodium Chloride Flush 3 Ml Syringe) [facility] Last Admin: 09/09/24 07:59 Dose: 3 ml Documented By: KESHAV Trazodone HCl (Trazodone Hcl 25 Mg Halftab) 25 mg PO BEDTIME PRN PRN Reason: Sleep Last Admin: 09/08/24 20:47 Dose: 25 mg Documented By: LEXX Labs 09/05/24 07:57 09/09/24 08:07 Labs: Laboratory Results - last 24 hr 07/09/08/24 09/08/24 12:02 14:30 14:30 Anion Gap Estim Creat Clear Calc Estimated GFR POC Glucose 400 H* Random Glucose Calcium CSF Tube Number 2 Cancelled CSF Volume CSF Appearance CSF Color CSF WBC CSF RBC CSF Lymphocytes CSF Monocytes % CSF Appearance (b) CSF Glucose CSF Total Protein 09/08/24 09/08/24 09/08/24 14:30 14:30 14:30 Anion Gap Estim Creat Clear Calc Estimated GFR POC Glucose Random Glucose Calcium CSF Tube Number 4 CSF Volume 5.0 CSF Appearance CLEAR CSF Color COLORLESS CSF WBC 2 CSF RBC 3 CSF Lymphocytes 50 CSF Monocytes % 50 CSF Appearance (b) Clear, Colorless Cancelled CSF Glucose 243 Cancelled CSF Total Protein 54.3 H 09/08/24 09/08/24 09/09/24 15:16 17:07 07:10 Anion Gap 21 H Estim Creat Clear Calc 10.5 Estimated GFR 5 POC Glucose 292 H 341 H Random Glucose 240 H Calcium 7.1 L D CSF Tube Number CSF Volume CSF Appearance CSF Color CSF WBC CSF RBC CSF Lymphocytes CSF Monocytes % CSF Appearance (b) CSF Glucose CSF Total Protein 09/09/24 08:07 Anion Gap 24 H Estim Creat Clear Calc 9.4 Estimated GFR 5 POC Glucose Random Glucose 366 H* Calcium 6.6 L D CSF Tube Number CSF Volume CSF Appearance CSF Color CSF WBC CSF RBC CSF Lymphocytes CSF Monocytes % CSF Appearance (b) CSF Glucose CSF Total Protein Microbiology Microbiology Results: Microbiology 09/08/24 14:30 Gram Stain - Final Cerebrospinal Fluid Fluid Description - Final CSF Culture - Preliminary No growth after 1 day Assessment and Plan (1) Multiple sclerosis: Status: Acute (2) Diabetes: Status: Acute Plan 34-year-old female with a PMH significant for?ESRD on HD //[facility], qcf-jipbvym-ilflxqubu 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 With diabetic polyneuropathy/retinopathy SSI, POCs, diabetic diet lantus dose increased follow blood sugar closely ESRD on HD //Sun Nephrology consult, follows with RTANE Follow BMP continue HD while inpatient Elevated troponin chronically elevated troponins No signs of ACS HTN bp chronically uncontrolled Continue carvedilol, hydralazine Chronic hypoxemic respiratory failure Pt on 3-4 L NC at home - uses intermittently currently mid to high 90s on room air HRrEF Continue carvedilol Treat with dialysis as above Chronic pain with opioid seeking behavior avoid IV narcotics if possible for good neuro checks Full Code DVT Prophylaxis: Pneumatic compression seen by PT - rec home with PT services. (pt has previously refused home services) Quality Stroke Does the patient have a stroke diagnosis?: No VTE Prior VTE?: No VTE Risk Level:: Medical - moderate - high VTE Device Contraindication: N/A - Device Ordered VTE Drug Contraindication: Treatment Not Indicated
[2024-09-09 10:34] LABS: Oligoclonal Serum Yes
[2024-09-09] MEDS: oxyCODONE HCl Immed Release 5 MG TABLET PO ×3 (10:48→20:15)
[2024-09-09 13:08] LABS: Glucose, Whole Blood 167 mg/dL (60-115)
[2024-09-09 16:24] LABS: Glucose, Whole Blood 148 mg/dL (60-115)
[2024-09-09 18:25] LABS: Anion Gap 20 (12-20); Carbon Dioxide 24 mmol/L (22-29); Chloride 100 mmol/L (96-108); Potassium 4.6 mmol/L (3.3-5.1); Sodium 139 mmol/L (135-145)
[2024-09-09 20:14] LABS: Glucose, Whole Blood 93 mg/dL (60-115)
[2024-09-09] MEDS: traZODone HCL 25 MG HALFTAB PO (20:36)
[2024-09-10] VITALS (10 sets, daily range): BP systolic 105–195; BP diastolic 57–88; PULSE 71–81; RESP 16–20; TEMP 36.1–36.9; O2SAT 99–100
[2024-09-10] MEDS: oxyCODONE HCl Immed Release 5 MG TABLET PO ×5 (00:18→23:07)
[2024-09-10] MEDS: 0.9 % Sodium Chloride Flush 3 ML SYRINGE IVFLUSH ×4 (01:31→20:29)
[2024-09-10 07:47] LABS: Glucose, Whole Blood 144 mg/dL (60-115)
--- NOTE | 2024-09-10 08:36 | P.DS_ITS ---
DS: Providers Provider Date of Service: 09/10/24 Date of admission: 09/05/24 00:47 Date of discharge: 09/10/24 Primary care physician: Genevieve Casillas MD Consults: 09/05/24 01:02 Consult to Wound Care Routine Reason for consultation: diabetic foot ulcers Bilaterally 09/05/24 10:13 Consult to Neurology Routine Consulting Provider: [facility] Reason for consultation: stroke Has provider been notified: Yes 09/05/24 16:07 Consult to Nephrology Routine Consulting Provider: [facility] Reason for consultation: esrd on HD Has provider been notified: No DS: Diagnosis Discharge Diagnosis (1) Multiple sclerosis: Status: Acute (2) Diabetes: Status: Acute DS: Summary Hospital Course Hospital Course: History and physical as per admitting provider. 34-year-old female with underlying history of end-stage renal disease on hemodialysis Sunday and Saturdays who had dialysis today, type 2 diabetes, possible history of MS, prior stroke, diabetic foot osteomyelitis, diabetic retinopathy, anxiety, depression, peripheral arterial disease, sepsis, cellulitis, gastroparesis, among others presented to emergency room with reported right-sided weakness which started 2 hours prior to arrival to the emergency room.? According to the patient her arms or legs had been weak after the hemodialysis therapy and she was noted to have minimal facial droop in the emergency room. Workup in the emergency room Blood sugar 216. ?White blood cells 6.4, hemoglobin 9.5, hemato crit 37.7, platelets 125. ?PT 12.8, INR 1.1, PTT 26.7.? Venous blood gas pH 7.4, pCO2 51, PO2 45, bicarb 34. EKG shows sinus tachycardia ventricular rate at 102 beats per minute there is left axis deviation with T-wave flattening in the lateral leads and evidence of right bundle branch block. On arrival to the emergency room the exam revealed significant right upper extremity weakness and right lower extremity weakness against gravity, NIH of 6. ?Case had been discussed with neurologist and tPA was advised. ?Underwent a head CT which showed no intracranial abnormality or hemorrhage.? CT angiogram of the head and neck showed patent vessels.? The patient received TNK at 2200. Overall the patient's symptoms have not improved, the patient denies further complaints, patient will be transferred to the ICU for further care. Physical Exam Vital Signs: Vital Signs: Last Vital Signs Temp 97.0 F 09/10/24 08:00 Pulse 73 09/10/24 08:00 Resp 16 09/10/24 08:00 BP 131/63 09/10/24 08:00 Pulse Ox 100 09/10/24 08:00 O2 Del Method Room Air 09/10/24 08:00 BMI result Body Mass Index 33.2 Appearing in no acute distress head is normocephalic atraumatic eyes pupils are PERRLA sclera is anicteric mouth throat mucous membranes are intact and moist neck is supple no lymphadenopathy, no JVD noted lung sounds are clear to auscultation heart regular rate rhythm, clear S1, S2 positive bowel sounds, abdomen is soft, nontender neuro patient is alert x3, no focal deficits DS: Data Data Completed and Pending Completed studies during hospitalization [Text1]: Procedures Detachment at Left 2nd Toe, Complete, Open Approach (09/08/23) Detachment at Left 3rd Toe, Complete, Open Approach (09/08/23) Detachment at Left 4th Toe, Complete, Open Approach (09/08/23) Detachment at Right Foot, Partial 1st Ray, Open Approach (03/01/20) Detachment at Right Foot, Partial 2nd Ray, Open Approach (03/01/20) Detachment at Right Foot, Partial 3rd Ray, Open Approach (03/01/20) Detachment at Right Foot, Partial 4th Ray, Open Approach (03/01/20) Detachment at Right Foot, Partial 5th Ray, Open Approach (03/01/20) Drainage of Right Pleural Cavity, Percutaneous Approach (01/14/21) Excision of Left Foot Muscle, Open Approach (01/14/24) Excision of Left Foot Skin, External Approach (10/08/23) Excision of Left Foot Subcutaneous Tissue and Fascia, Open Approach (07/31/24) Excision of Right Foot Skin, External Approach (07/31/24) Excision of Stomach, Pylorus, Via Natural or Artificial Opening Endoscopic, Diagnostic (08/27/22) Fluoroscopy of Superior Vena Cava, Guidance (08/14/22) Insertion of Endotracheal Airway into Trachea, Via Natural or Artificial Opening (11/10/23) Insertion of Infusion Device into Right Atrium, Percutaneous Approach (02/25/24) Insertion of Infusion Device into Superior Vena Cava, Percutaneous Approach (05/25/24) Insertion of Infusion Device into Upper Vein, Percutaneous Approach (01/14/24) Insertion of Tunneled Vascular Access Device into Chest Subcutaneous Tissue and Fascia, Percutaneous Approach (05/25/24) Introduction of Vasopressor into Peripheral Vein, Percutaneous Approach (11/10/23) Isolation (11/10/23) Performance of Urinary Filtration, Intermittent, Less than 6 Hours Per Day (08/18/24) Removal of Infusion Device from Great Vessel, External Approach (01/14/21) Removal of Infusion Device from Great Vessel, Percutaneous Approach (05/25/24) Removal of Infusion Device from Heart, External Approach (01/14/24) Removal of Tunneled Vascular Access Device from Trunk Subcutaneous Tissue and Fascia, Open Approach (05/25/24) Respiratory Ventilation, Greater than 96 Consecutive Hours (11/10/23) Transfusion of Nonautologous Red Blood Cells into Peripheral Vein, Percutaneous Approach (11/10/23) Ultrasonography of Superior Vena Cava, Guidance (02/25/24) Labs on day of discharge: Laboratory Results - last 24 hr 09/09/24 09/09/24 09/09/24 08:07 13:05 16:20 Sodium 130 L Potassium 6.4 H* Chloride 90 L Carbon Dioxide 22 Anion Gap 24 H BUN 116 H Creatinine 9.40 H* Estim Creat Clear Calc 9.4 Estimated GFR 5 POC Glucose 167 H 148 H Random Glucose 366 H* Calcium 6.6 L D 09/09/24 09/09/24 09/10/24 18:01 20:08 07:31 Sodium 139 Potassium 4.6 D Chloride 100 Carbon Dioxide 24 Anion Gap 20 BUN Creatinine Estim Creat Clear Calc Estimated GFR POC Glucose 93 144 H Random Glucose Calcium Preliminary micro results at discharge 09/08/24 14:30 CSF Culture - Preliminary Cerebrospinal Fluid No growth after 1 day Discharge Plan Discharge Anticipated Discharge Date/Time: 09/10/24 08:29 Patient Disposition: Home, Self-Care Discharge Diagnosis: Relapsing remitting MS Referrals: Liv Malik MD [Physician, Neurology] Genevieve Gtz MD [Primary Care Provider, Internal Medicine] - 1 Week Discharge Medications: New hydromorphone [Dilaudid] 2 mg tablet 2 mg PO Q8H PRN (Reason: pain) Qty: 45 0RF Rx Instructions: Partial Fill upon patient request. Continued carvedilol 12.5 mg Tablet 12.5 mg PO BID 90 Days Qty: 180 0RF Protocol: Hold for SBP/HR < HOLD for SBP < : 90 HOLD for HR < : 60 hydralazine 50 mg Tablet 50 mg PO TID 90 Days Qty: 270 0RF Protocol: Hold for SBP< HOLD for SBP < : 90 acetaminophen 325 mg tablet 650 mg PO Q4H PRN (Reason: mild pain) (DME) FreeStyle Lite Strips Strip Qty: 100 0RF Rx Instructions: Test four times a day or as directed. (DME) blood-glucose meter [FreeStyle Lite Meter] Kit Qty: 1 0RF Rx Instructions: As Directed (DME) pen needle, diabetic 32 gauge x 1/4 needle Qty: 100 0RF Rx Instructions: Use four times a day or as directed. (DME) lancets [FreeStyle Lancets] 28 gauge misc Qty: 100 0RF Rx Instructions: Test four times a day or as directed. lidocaine 5 % adhesive patch,medicated 1 patch topical DAILY PRN (Reason: Pain) nitroglycerin 0.4 mg tablet, sublingual 0.4 mg sublingual DIRECTED PRN (Reason: Angina) albuterol sulfate [Ventolin HFA] 90 mcg/actuation HFA aerosol inhaler 2 puff inhalation Q6H PRN (Reason: wheezing) calcium carbonate [Tums] 200 mg calcium (500 mg) Tablet,Chewable 200 mg PO TIDWM PRN (Reason: Acid Reflux) ondansetron 4 mg tablet,disintegrating 4 mg PO Q8H PRN (Reason: nausea and vomiting) Qty: 12 0RF Discontinued oxycodone 5 mg tablet 5 mg PO TID PRN (Reason: Pain) Diet: Advance to usual diet Activity on Discharge: As tolerated Stand Alone Forms: Patient Portal Discharge page Print Language: Ivorian Care Plan Goals: Follow up with Neurology for results of lumbar puncture Health Concerns: Relapsing and remitting MS Plan of Treatment: Follow up with primary care provider as needed Take all medications as prescribed Assessment: See discharge summary
--- NOTE | 2024-09-10 10:54 | P.PNIM_ITS ---
Subjective Subjective Date of Service: 09/10/24 Interval History: Follow-up for right-sided weakness, resolved feeling better but still c/o chronic pain Review of Systems Review of Systems: Yes all other systems are reviewed and are negative Constitutional Constitutional: Denies fever(s) Physical Exam 2 Vital Signs: Vital Signs: Last Vital Signs Temp 97.0 F 09/10/24 08:00 Pulse 73 09/10/24 08:00 Resp 16 09/10/24 08:00 BP 131/63 09/10/24 08:00 Pulse Ox 100 09/10/24 08:00 O2 Del Method Room Air 09/10/24 08:00 BMI result Body Mass Index 33.2 Appearing in no acute distress lung sounds are clear to auscultation heart regular rate rhythm, clear S1, S2 positive bowel sounds, abdomen is soft, nontender neuro patient is alert x3, no focal deficits bilateral TMA Objective Data Active Medications Albuterol Sulfate (Albuterol Sulfate 90 Mcg 8 Gm Inhaler) 2 puff INHALE Q6H PRN PRN Reason: Wheezing Atorvastatin Calcium (Atorvastatin Calcium 20 Mg Tablet) 20 mg PO BEDTIME VASILE Last Admin: 09/09/24 20:39 Dose: Not Given Documented By: ZACKARY Non-Admin Reason: Patient Refused Calcium Carbonate (Calcium Carbonate 750 Mg Tab.Chew) 750 mg PO TIDWM PRN PRN Reason: Acid Reflux Carvedilol (Carvedilol 12.5 Mg Tablet) 12.5 mg PO BID VASILE; Protocol Last Admin: 09/10/24 08:39 Dose: Not Given Documented By: KARLI Non-Admin Reason: Patient Refused Dextrose (Dextrose 50 % 25 Gm/50 Ml Syringe) 25 gm IVPUSH Q15M PRN; Protocol PRN Reason: per Hypoglycemia Standing Ord. Diazepam (Diazepam 10 Mg/2 Ml Cartridge) 5 mg IVPUSH ONCE PRN PRN Reason: anxiety Last Admin: 09/08/24 13:59 Dose: 5 mg Documented By: CHET Glucose (Glucose Gel 15 Gm Gel..Gram.) 15 gm PO Q15M PRN; Protocol PRN Reason: per Hypoglycemia Standing Ord. Hydralazine HCl (Hydralazine Hcl 50 Mg Tablet) 50 mg PO TID VASILE; Protocol Last Admin: 09/10/24 08:39 Dose: Not Given Documented By: KARLI Non-Admin Reason: Patient Refused Hydromorphone HCl (Hydromorphone Hcl 0.5 Mg/0.5 Ml Syringe) 0.5 mg IVPUSH Q8H PRN; Protocol PRN Reason: Pain, Severe (Pain Scale 7-10) Last Admin: 09/10/24 09:23 Dose: 0.5 mg Documented By: KARLI Insulin Glargine (Insulin Glargine,Hum.Rec.Anlog 100 Unit/Ml 10 Ml Vial) 15 unit SUBCUT BEDTIME [facility] Last Admin: 09/09/24 20:39 Dose: Not Given Documented By: ZACKARY Non-Admin Reason: Patient Refused Insulin Human Lispro (Insulin Lispro 100 Unit/Ml 3 Ml Vial) 0 unit SUBCUT QIDACHS [facility]; Protocol Last Admin: 09/10/24 08:01 Dose: Not Given Documented By: KARLI Non-Admin Reason: No Insulin Coverage Insulin Human Lispro (Insulin Lispro 100 Unit/Ml 3 Ml Vial) 10 unit SUBCUT QIDACHS [facility] Last Admin: 09/10/24 08:38 Dose: Not Given Documented By: KARLI Non-Admin Reason: pt refused Lidocaine (Lidocaine 4 % Patch Adh..Patch) 1 patch TRANSDERMA DAILY PRN PRN Reason: Pain Ondansetron HCl (Ondansetron Odt 4 Mg Tab.Rapdis) 4 mg TRANSLINGU Q8H PRN PRN Reason: Nausea and Vomiting Last Admin: 09/07/24 12:33 Dose: 4 mg Documented By: LAILA Sodium Chloride (0.9 % Sodium Chloride Flush 3 Ml Syringe) 3 ml IVFLUSH [facility] Last Admin: 09/10/24 08:39 Dose: 3 ml Documented By: KARLI Trazodone HCl (Trazodone Hcl 25 Mg Halftab) 25 mg PO BEDTIME PRN PRN Reason: Sleep Last Admin: 09/09/24 20:36 Dose: 25 mg Documented By: ZACKARY Labs 09/05/24 07:57 09/09/24 18:01 Labs: Laboratory Results - last 24 hr 09/09/24 09/09/24 09/09/24 13:05 16:20 18:01 Anion Gap 20 POC Glucose 167 H 148 H 09/09/24 09/10/24 20:08 07:31 Anion Gap POC Glucose 93 144 H Microbiology Microbiology Results: Microbiology 09/08/24 14:30 Gram Stain - Final Cerebrospinal Fluid Fluid Description - Final CSF Culture - Preliminary No growth after 2 days Assessment and Plan (1) Multiple sclerosis: Status: Acute (2) Diabetes: Status: Acute Plan 34-year-old female with a PMH significant for?ESRD on HD /, csn-[id number]-dwjuthkfl 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, PAD s/p bilateral TMA, poorly controlled hypertension due to medication noncompliance, chronic hypoxemic respiratory failure on 3-4 L baseline supplemental oxygen prn, HFrEF, hx of multiple dialysis catheter line infections with bacteremia with MSSA, stenotrophomonas, and Pseudomonas, mood disorder, and chronic pain with opioid seeking behavior who presents to the ED weakness initially thought to be due to acute stroke s/p TNK and admitted to the ICU for close neurological evaluation, downgraded to the medical floor on September 05 Dialysis port pain blood cx through line nephrology aware RUE Weakness. Resolved Recently diagnosed with multiple sclerosis CT and CTA negative for acute findings MRI again showing demyelinating plaques, no evidence of acute stroke seen by neurology>s/p 3 days of IV steroids LP to confirm diagnosis of MS> results pending will need outpatient follow up with neurology, recommend starting on aubagio 7 mg daily as outpatient Hyperkalemia resolved Hypokalemia. 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 With diabetic polyneuropathy/retinopathy SSI, POCs, diabetic diet lantus dose increased follow blood sugar closely ESRD on HD / Nephrology consult, follows with RTANE Follow BMP continue HD while inpatient Elevated troponin chronically elevated troponins No signs of ACS HTN bp chronically uncontrolled Continue carvedilol, hydralazine Chronic hypoxemic respiratory failure Pt on 3-4 L NC at home - uses intermittently currently mid to high 90s on room air HRrEF Continue carvedilol Treat with dialysis as above Chronic pain with opioid seeking behavior avoid IV narcotics if possible for good neuro checks Full Code DVT Prophylaxis: Pneumatic compression seen by PT - rec home with PT services. (pt has previously refused home services) Quality Stroke Does the patient have a stroke diagnosis?: No VTE Prior VTE?: No VTE Risk Level:: Medical - moderate - high VTE Device Contraindication: N/A - Device Ordered VTE Drug Contraindication: Treatment Not Indicated
[2024-09-10 11:04] LABS: Glucose, Whole Blood 138 mg/dL (60-115)
--- NOTE | 2024-09-10 16:07 | MHC.CM.PN ---
Per EMR review, pt. is not ready to DC, anticipate she will DC tomorrow and home care services, CM to follow and assist with DCP.
[2024-09-10 16:22] LABS: Glucose, Whole Blood 148 mg/dL (60-115)
[2024-09-10 19:54] LABS: Glucose, Whole Blood 128 mg/dL (60-115)
[2024-09-10] MEDS: traZODone HCL 25 MG HALFTAB PO (23:07)
[2024-09-10 23:34] LABS: Albumin 4.2 g/dL (3.6-5.1); Albumin, CSF 25.7 mg/dL (8.0-42.0); IgG, CSF 3.5 mg/dL (0.8-7.7)
[2024-09-11 03:27] VITALS: BP 130/69; PULSE 76; RESP 16; TEMP 36.2; O2SAT 95
--- NOTE | 2024-09-11 04:02 | P.PNNP_ITS ---
Subjective Subjective Date of Service: 09/10/24 Interval history: Seen and examined, events noted Physical Exam 2 Vital Signs: Vital Signs: Last Vital Signs Temp 97.1 F 09/11/24 03:27 Pulse 76 09/11/24 03:27 Resp 16 09/11/24 03:27 BP 130/69 09/11/24 03:27 Pulse Ox 95 09/11/24 03:27 O2 Del Method Room Air 09/11/24 03:27 BMI result Body Mass Index 33.2 Const: General: cooperative, comfortable, no acute distress, alert and awake Nutritional Appearance: average body habitus Orientation/consciousness: p atient oriented x3 Eyes: Other: right eye blind Resp: Effort & Inspection: normal respiratory effort, able to speak in complete sentences, no respiratory distress and no use of accessory muscles Cardio: Rate: regular rate GI: Inspection: No distended Palpation (GI): Soft to palpation and nontender Skin: Other: right foot left foot Neuro: Other: RUE/RLE reported heaviness, 4/5 strength General: patient oriented x3 Extrem: Other: b/l transmetatarsal amputation Objective Data Labs 09/05/24 07:57 09/09/24 18:01 Labs: Laboratory Results - last 24 hr 09/08/24 09/10/24 09/10/24 14:30 07:31 10:57 POC Glucose 144 H 138 H Albumin (Send Out) 4.2 CSF Albumin 25.7 CSF IgG Index 0.41 CSF IgG Synthesis Rate -6.8 CSF/Serum IgG Index 3.5 IgG Index 1400 09/10/24 09/10/24 16:17 19:48 POC Glucose 148 H 128 H Albumin (Send Out) CSF Albumin CSF IgG Index CSF IgG Synthesis Rate CSF/Serum IgG Index IgG Index Microbiology Microbiology Results: Microbiology 09/08/24 14:30 Cerebrospinal Fluid Gram Stain - Final 09/08/24 14:30 Cerebrospinal Fluid Fluid Description - Final 09/08/24 14:30 Cerebrospinal Fluid CSF Culture - Preliminary No growth after 2 days Procedures Date of Service Date of Service: 09/11/24 Assessment & Plan Assessment and plan (1) Multiple sclerosis: Status: Acute (2) Diabetes: Status: Acute Plan 34-year-old female with a PMH significant for?ESRD on HD //Sun, [id number] 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, PAD s/p bilateral TMA, poorly controlled hypertension due to medication noncompliance, chronic hypoxemic respiratory failure on 3-4 L baseline supplemental oxygen prn, HFrEF, hx of multiple dialysis catheter line infections with bacteremia with MSSA, stenotrophomonas, and Pseudomonas, mood disorder, and chronic pain with opioid seeking behavior who presents to the ED weakness initially thought to be due to acute stroke s/p TNK and admitted to the ICU for close neurological evaluation, downgraded to the medical floor on September 05 ESRD: cont HD TTS MS: as per Neuro Nephrogenic Anemia HyperK: needs to be on low K diet and use Kbinder to keep < 5.3 REC: cont HD TTS, meds as noted, low K diet, recheck K level and treat for K > 5.3 Will follow with team Time Spent With Patient Time: Total time managing care of this patient today ____ minutes. Progress Note: Quality Stroke Does the patient have a stroke diagnosis?: No
[2024-09-11 06:00] VITALS: BMI 32.2
[2024-09-11] MEDS: 0.9 % Sodium Chloride Flush 3 ML SYRINGE IVFLUSH ×3 (07:56→19:49)
[2024-09-11] MEDS: oxyCODONE HCl Immed Release 5 MG TABLET PO ×3 (07:59→19:44)
[2024-09-11 08:00] VITALS: BP 153/81; PULSE 78; RESP 20; TEMP 36.3; O2SAT 99
[2024-09-11 08:09] LABS: Glucose, Whole Blood 114 mg/dL (60-115)
--- NOTE | 2024-09-11 10:00 | PC.NURSE ---
Addendum entered by Lisa Villalobos RN 09/11/24 13:21: patient back in the room from dialysis Original Note: Patient transported to dialysis
[2024-09-11 11:43] LABS: Glucose, Whole Blood 110 mg/dL (60-115)
[2024-09-11 12:00] VITALS: BP 176/128; PULSE 63; RESP 18; TEMP 36.9; O2SAT 97
[2024-09-11] MEDS: Lidocaine 4 % Patch ADH..PATCH 1 PATCH TRANSDERMA (13:43)
--- NOTE | 2024-09-11 14:28 | HO.PM.IMPN ---
Subjective Subjective Date of Service: 09/11/24 Interval History: pain at dialysis catheter site to HD today RLE weakness resolved Review of Systems Review of Systems: Yes all other systems are reviewed and are negative Physical Exam Vital Signs: Vital Signs: Last Vital Signs Temp 98.5 F 09/11/24 12:00 Pulse 63 09/11/24 12:00 Resp 18 09/11/24 12:00 BP 176/128 H 09/11/24 12:00 Pulse Ox 97 09/11/24 12:00 O2 Del Method Room Air 09/11/24 12:00 BMI result Body Mass Index 32.2 Gen: in no acute distress HEENT: sclera anicteric, moist mucus membranes Neck: supple, RIJ dialysis catheter without redness or purulence Lungs: clear to auscultation bilaterally Heart: regular rate and rhythm, no murmurs Abd: soft, non-tender, non-distended Ext: no edema Skin: s/p bilateral TMAs Neuro: alert and oriented x3, no focal weakness Psych: appropriate affect Objective Data Active Medications Albuterol Sulfate (Albuterol Sulfate 90 Mcg 8 Gm Inhaler) 2 puff INHALE Q6H PRN PRN Reason: Wheezing Atorvastatin Calcium (Atorvastatin Calcium 20 Mg Tablet) 20 mg PO BEDTIME [facility] Last Admin: 09/10/24 20:21 Dose: 20 mg Documented By: MARIZA Calcium Carbonate (Calcium Carbonate 750 Mg Tab.Chew) 750 mg PO TIDWM PRN PRN Reason: Acid Reflux Carvedilol (Carvedilol 12.5 Mg Tablet) 12.5 mg PO BID [facility]; Protocol Last Admin: 09/11/24 08:05 Dose: Not Given Documented By: BEAU Non-Admin Reason: Patient Refused Dextrose (Dextrose 50 % 25 Gm/50 Ml Syringe) 25 gm IVPUSH Q15M PRN; Protocol PRN Reason: per Hypoglycemia Standing Ord. Diazepam (Diazepam 10 Mg/2 Ml Cartridge) 5 mg IVPUSH ONCE PRN PRN Reason: anxiety Last Admin: 09/08/24 13:59 Dose: 5 mg Documented By: CHET Glucose (Glucose Gel 15 Gm Gel..Gram.) 15 gm PO Q15M PRN; Protocol PRN Reason: per Hypoglycemia Standing Ord. Hydralazine HCl (Hydralazine Hcl 50 Mg Tablet) 50 mg PO TID [facility]; Protocol Last Admin: 09/11/24 08:05 Dose: Not Given Documented By: BEAU Non-Admin Reason: Patient Refused Hydromorphone HCl (Hydromorphone Hcl 0.5 Mg/0.5 Ml Syringe) 0.5 mg IVPUSH Q8H PRN; Protocol PRN Reason: Pain, Severe (Pain Scale 7-10) Last Admin: 09/11/24 10:20 Dose: 0.5 mg Documented By: BEAU Insulin Glargine (Insulin Glargine,Hum.Rec.Anlog 100 Unit/Ml 10 Ml Vial) 15 unit SUBCUT BEDTIME [facility] Last Admin: 09/10/24 20:22 Dose: Not Given Documented By: MARIZA Non-Admin Reason: Patient Refused Insulin Human Lispro (Insulin Lispro 100 Unit/Ml 3 Ml Vial) 0 unit SUBCUT QIDACHS [facility]; Protocol Last Admin: 09/11/24 12:03 Dose: Not Given Documented By: BEAU Non-Admin Reason: Off unit: Dialysis Insulin Human Lispro (Insulin Lispro 100 Unit/Ml 3 Ml Vial) 10 unit SUBCUT QIDACHS [facility] Last Admin: 09/11/24 12:04 Dose: Not Given Documented By: BEAU Non-Admin Reason: Off unit: Dialysis Lidocaine (Lidocaine 4 % Patch Adh..Patch) 1 patch TRANSDERMA DAILY PRN PRN Reason: Pain Last Admin: 09/11/24 13:43 Dose: 1 patch Documented By: SABAS Metoclopramide HCl (Metoclopramide Hcl 10 Mg/2 Ml Vial) 10 mg IVPUSH Q6H PRN PRN Reason: Nausea Last Admin: 09/11/24 07:57 Dose: 10 mg Documented By: BEAU Ondansetron HCl (Ondansetron Odt 4 Mg Tab.Rapdis) 4 mg TRANSLINGU Q8H PRN PRN Reason: Nausea and Vomiting Last Admin: 09/11/24 10:20 Dose: 4 mg Documented By: BEAU Oxycodone HCl (Oxycodone Hcl Immed Release 5 Mg Tablet) 5 mg PO Q4H PRN PRN Reason: Pain, Moderate(Pain Scale 4-6) Last Admin: 09/11/24 13:44 Dose: 5 mg Documented By: SABAS Sodium Chloride (0.9 % Sodium Chloride Flush 3 Ml Syringe) 3 ml IVFLUSH QSHIFT [facility] Last Admin: 09/11/24 07:56 Dose: 3 ml Documented By: DOBROB Trazodone HCl (Trazodone Hcl 25 Mg Halftab) 25 mg PO BEDTIME PRN PRN Reason: Sleep Last Admin: 09/10/24 23:07 Dose: 25 mg Documented By: NICANORCH Labs 09/05/24 07:57 09/09/24 18:01 Labs: Laboratory Results - last 24 hr 09/08/24 09/10/24 09/10/24 14:30 16:17 19:48 POC Glucose 148 H 128 H Albumin (Send Out) 4.2 CSF Albumin 25.7 CSF IgG Index 0.41 CSF IgG Synthesis Rate -6.8 CSF/Serum IgG Index 3.5 IgG Index 1400 09/11/24 09/11/24 07:52 11:37 POC Glucose 114 110 Albumin (Send Out) CSF Albumin CSF IgG Index CSF IgG Synthesis Rate CSF/Serum IgG Index IgG Index Microbiology Microbiology Results: Microbiology 09/10/24 11:22 Blood Culture - Preliminary Blood - Central Line No growth after 24 hours. 09/10/24 11:22 Blood Culture - Preliminary Blood - Central Line No growth after 24 hours. 09/08/24 14:30 Gram Stain - Final Cerebrospinal Fluid Fluid Description - Final CSF Culture - Final No growth after 3 days. Assessment and Plan (1) Multiple sclerosis: Status: Acute Plan d7 for 34yo F with ESRD on HD TuThSa, DM2 with polyneuropathy/retinopathy + legal blindness, PAD s/p bilateral TMA, chronic hypoxia on 3-4L O2, chronic HFrEF, multiple HD catheter line infections with MSSA/Stenotrophomonas/Pseudomonas, mood disorder, and chronic pain with opioid-seeking behavior presenting with weakness initially thought to be acute CVA for which she received TNK and was admitted to the ICU for monitoring but ultimately likely due to recently diagnosed MS stepped down to hospitalist service 09/05/25 dialysis port pain - per Nephrology, blood cultures drawn- awaiting results RUE weakness - resolved, likely MS. MRI again showing demyelinating plaques; no evidence of acute stroke. Received 3 days of IV steroids. LP done and CSF studies pending. Will need outpt Neurology followup and will start on Aubagio 7 mg daily upon discharge per Neurology recommendation hyperK - resolved DM2 with steroid-associated hyperglycemia - basal-bolus insulin ESRD on HD TuThSa - continue HD, Nephrology following HTN - continue carvedilol + hydralazine chronic hypoxic resp failure - on 3-4L NC prn chronic HFrEF - continue carvedilol; volume mgmt by HD chronic pain with opioid seeking behavior - try to minimize use of IV hydromrophone VTE ppx - UFH dispo - home with VNA In my clinical judgment, the patient requires continued inpatient hospitalization for the following reasons: rule out line infection Total time managing care of this patient today: 35 minutes. Quality Stroke Does the patient have a stroke diagnosis?: No VTE Prior VTE?: No VTE Risk Level:: Medical - moderate - high VTE Device Contraindication: N/A - Device Ordered VTE Drug Contraindication: Treatment Not Indicated
--- NOTE | 2024-09-11 14:30 | P.PNNP_ITS ---
Subjective Subjective Date of Service: 09/11/24 Interval history: Seen and examined, events noted Physical Exam 2 Vital Signs: Vital Signs: Last Vital Signs Temp 98.5 F 09/11/24 12:00 Pulse 63 09/11/24 12:00 Resp 18 09/11/24 12:00 BP 176/128 H 09/11/24 12:00 Pulse Ox 97 09/11/24 12:00 O2 Del Method Room Air 09/11/24 12:00 BMI result Body Mass Index 32.2 cvs;s1s2 rs; cta ABd; soft b/l feet dressing+ Objective Data Labs 09/05/24 07:57 09/09/24 18:01 Labs: Laboratory Results - last 24 hr 09/08/24 09/10/24 09/10/24 14:30 16:17 19:48 POC Glucose 148 H 128 H Albumin (Send Out) 4.2 CSF Albumin 25.7 CSF IgG Index 0.41 CSF IgG Synthesis Rate -6.8 CSF/Serum IgG Index 3.5 IgG Index 1400 09/11/24 09/11/24 07:52 11:37 POC Glucose 114 110 Albumin (Send Out) CSF Albumin CSF IgG Index CSF IgG Synthesis Rate CSF/Serum IgG Index IgG Index Microbiology Microbiology Results: Microbiology 09/10/24 11:22 Blood - Central Line Blood Culture - Preliminary No growth after 24 hours. 09/10/24 11:22 Blood - Central Line Blood Culture - Preliminary No growth after 24 hours. 09/08/24 14:30 Cerebrospinal Fluid Gram Stain - Final 09/08/24 14:30 Cerebrospinal Fluid Fluid Description - Final 09/08/24 14:30 Cerebrospinal Fluid CSF Culture - Final No growth after 3 days. 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, PAD s/p bilateral TMA, poorly controlled hypertension due to medication noncompliance, chronic hypoxemic respiratory failure on 3-4 L baseline supplemental oxygen prn, HFrEF, hx of multiple dialysis catheter line infections with bacteremia with MSSA, stenotrophomonas, and Pseudomonas, mood disorder, and chronic pain with opioid seeking behavior who presents to the ED weakness initially thought to be due to acute stroke s/p TNK and admitted to the ICU for close neurological evaluation, downgraded to the medical floor on September 05 ESRD: cont HD TTS MS: as per Neuro Nephrogenic Anemia HyperK: needs to be on low K diet and use Kbinder to keep < 5.3 REC: cont HD TTS, meds as noted, low K diet, recheck K level and treat for K > 5.3 Will follow with team , pending blood cx due to pain in pc site Time Spent With Patient Time: Total time managing care of this patient today ____ minutes. Progress Note: Quality Stroke Does the patient have a stroke diagnosis?: No
[2024-09-11 15:45] VITALS: BP 155/65; PULSE 86; RESP 18; O2SAT 97
[2024-09-11 16:24] LABS: Glucose, Whole Blood 95 mg/dL (60-115)
--- NOTE | 2024-09-11 18:37 | PC.NURSE ---
Patient refused oral medication, agreeable to prn pain and nausea medication, c/o constant pain has been taking PRN pain medication, oxycodone Q4h and dilaudid changed from Q8H to Q6H, received dialysis this morning. BP elevated patient refused afternoon dose of hydralazine stating she will take the evening dose. C/o nausea and intermittent vomiting. Declined dressing change today.
[2024-09-11 19:22] VITALS: BP 161/71; PULSE 90; RESP 16; TEMP 36.6; O2SAT 96
[2024-09-11] MEDS: traZODone HCL 25 MG HALFTAB PO (19:43)
[2024-09-11 19:45] LABS: Glucose, Whole Blood 126 mg/dL (60-115)
[2024-09-11 23:01] VITALS: BP 151/75; PULSE 96; RESP 18; TEMP 36.1; O2SAT 93
[2024-09-11 23:08] LABS: Lyme IgG CSF Immunoblot NO BANDS DETECTED; Lyme IgM CSF Immunoblot NO BANDS DETECTED
[2024-09-12 04:00] VITALS: BP 138/68; PULSE 85; RESP 18; TEMP 36.2; O2SAT 97
[2024-09-12 06:00] VITALS: BMI 31.2
[2024-09-12 07:24] VITALS: BP 126/60; PULSE 81; RESP 16; TEMP 36; O2SAT 98
--- NOTE | 2024-09-12 07:36 | PC.NURSE ---
Pt continues to refuse Heparin SubQ, Atorvastatin and insulin despite education. Provider aware. Continue to monitor labs as ordered.
[2024-09-12 07:59] LABS: Glucose, Whole Blood 74 mg/dL (60-115)
[2024-09-12] MEDS: Lidocaine 4 % Patch ADH..PATCH 1 PATCH TRANSDERMA (11:17)
[2024-09-12 11:29] VITALS: BP 140/64; PULSE 88; RESP 16; TEMP 36.1; O2SAT 98
[2024-09-12 11:52] LABS: Glucose, Whole Blood 120 mg/dL (60-115)
--- NOTE | 2024-09-12 12:29 | P.F2F_ITS ---
Service Date Service Date: 09/12/24 Encounter Date of encounter: 09/12/24 Reasons for Services Signs and symptoms assessed: attach PT evaluation 09/05/24 Reason for correction: medication management, medication treatment and teach disease management Reason for physical therapy: home safety and mobility, therapeutic exercises, gait/transfer training, assess need for DME, ADL training and energy conservation MD Overseeing Care: Genevieve Casillas Homebound: Leaving the home is medically contraindicated at this time without the asist of a device and/or another person due th the listed conditions above and below. Reason homebound: unsteady gait / fall risk and weakness related to hospital stay Certification: Based on the above findings, I certify that this patient is confined to the home and needs intermittent correction care, physical therapy and/or speech therapy, or continues to need occupational therapy. The patient is under my care, and I have initiated the establishment of the plan of care. The patient will be followed by a physician who will periodically review the plan of care. Time Spent With Patient Time: Total time managing care of this patient today ____ minutes.
--- NOTE | 2024-09-12 12:31 | PM.DS ---
DS: Providers Provider Date of Service: 09/12/24 Date of admission: 09/05/24 00:47 Date of discharge: 09/12/24 Primary care physician: Genevieve Casillas MD Consults: 09/05/24 01:02 Consult to Wound Care Routine Reason for consultation: diabetic foot ulcers Bilaterally 09/05/24 10:13 Consult to Neurology Routine Consulting Provider: [facility] Reason for consultation: stroke Has provider been notified: Yes 09/05/24 16:07 Consult to Nephrology Routine Consulting Provider: [facility] 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 According to the patient her arms or legs had been weak after the hemodialysis therapy and she was noted to have minimal facial droop in the emergency room. Workup in the emergency room Blood sugar 216. ?White blood cells 6.4, hemoglobin 9.5, hematocrit 37.7, platelets 125. ?PT 12.8, INR 1.1, PTT 26.7.? Venous blood gas pH 7.4, pCO2 51, PO2 45, bicarb 34. EKG shows sinus tachycardia ventricular rate at 102 beats per minute there is left axis deviation with T-wave flattening in the lateral leads and evidence of right bundle branch block. On arrival to the emergency room the exam revealed significant right upper extremity weakness and right lower extremity weakness against gravity, NIH of 6. ?Case had been discussed with neurologist and tPA was advised. ?Underwent a head CT which showed no intracranial abnormality or hemorrhage.? CT angiogram of the head and neck showed patent vessels.? The patient received TNK at 2200. Overall the patient's symptoms have not improved, the patient denies further complaints, patient will be transferred to the ICU for further care. 34yo F with ESRD on HD TuThSa, DM2 with polyneuropathy/retinopathy + legal blindness, PAD s/p bilateral TMA, chronic hypoxia on 3-4L O2, chronic HFrEF, multiple HD catheter line infections with MSSA/Stenotrophomonas/Pseudomonas, mood disorder, and chronic pain with opioid-seeking behavior presenting with weakness initially thought to be acute CVA for which she received TNK and was admitted to the ICU for monitoring but ultimately likely due to recently diagnosed MS; stepped down to hospitalist service 09/05/25. MRI again showing demyelinating plaques; no evidence of acute stroke. Received 3 days of IV steroids. LP done and CSF oligoclonal bans pending. Will need outpt Neurology followup and will start on Aubagio 7 mg daily upon discharge per Neurology recommendation. Continued dialysis per usual TuThSa schedule. Hyperkalemia resolved and she was started on Lokelma upon discharge. Discharged home with VNA and PT services. Time Attestation Discharge Coordination Time (in mins): 45 Quality: Safe Use of Opioids Does Pt have an Active Cancer Diagnosis on the Problem List?: No Quality: Stroke Does the patient have a stroke diagnosis?: No Physical Exam Vital Signs: Vital Signs: Last Vital Signs Temp 96.9 F 09/12/24 11:29 Pulse 88 09/12/24 11:29 Resp 16 09/12/24 11:29 BP 140/64 H 09/12/24 11:29 Pulse Ox 98 09/12/24 11:29 O2 Del Method Room Air 09/12/24 11:29 BMI result Body Mass Index 31.2 Gen: in no acute distress HEENT: sclera anicteric, moist mucus membranes Neck: supple, RIJ dialysis catheter without redness or purulence Lungs: clear to auscultation bilaterally Heart: regular rate and rhythm, no murmurs Abd: soft, non-tender, non-distended Ext: no edema Skin: s/p bilateral TMAs Neuro: alert and oriented x3, no focal weakness Psych: appropriate affect DS: Data Data Completed and Pending Completed studies during hospitalization [Text1]: Laboratory Results WBC 6.8 X10*3/uL (4.8-10.8) 09/05/24 07:57 RBC 3.17 X10*6/uL (4.20-5.50) L 09/05/24 07:57 Hgb 10.1 g/dl (12.0-16.0) L 09/05/24 07:57 Hct 30.0 % (37.0-47.0) L 09/05/24 07:57 MCV 94.6 fL (80.0-98.0) 09/05/24 07:57 MCH 31.9 pg (27.0-33.0) 09/05/24 07:57 MCHC 33.7 g/dl (31.0-35.0) 09/05/24 07:57 RDW 15.5 % (11.0-16.0) 09/05/24 07:57 Plt Count 121 X10*3/uL (160-400) L 09/05/24 07:57 MPV 11.5 fL (9.4-12.3) 09/05/24 07:57 Immature Gran % (Auto) 0.4 % (0.0-0.4) 09/05/24 07:57 Neut % (Auto) 68.6 % (45-73) 09/05/24 07:57 Lymph % (Auto) 11.7 % (20-40) L 09/05/24 07:57 [place] % (Auto) 16.8 % (2-11) H 09/05/24 07:57 Eos % (Auto) 2.1 % (0-4) 09/05/24 07:57 Baso % (Auto) 0.4 % (0-2) 09/05/24 07:57 Lymph # (Auto) 0.8 X10*3/uL (1.2-4.9) L 09/05/24 07:57 [place] # (Auto) 1.1 X10*3/uL (0.1-1.2) 09/05/24 07:57 Eos # (Auto) 0.1 X10*3/uL (0.0-0.4) 09/05/24 07:57 Baso # (Auto) 0.0 X10*3/uL (0.0-0.2) 09/05/24 07:57 Abs Immat Gran (auto) 0.03 X10*3/uL (0.00-0.03) 09/05/24 07:57 Absolute Neuts (auto) 4.6 x10*3/uL (2.0-8.3) 09/05/24 07:57 Absolute Nucleated RBC 0.000 X10*3/uL (0.0-0.012) 09/05/24 07:57 Nucleated RBC % (auto) 0.0 /100WBC (0.0-0.2) 09/05/24 07:57 PT 12.8 SEC (10.9-12.4) H 09/04/24 21:58 Whole Blood PT 14.2 sec (11.1-13.5) H 09/04/24 20:52 INR 1.1 (0.9-1.1) 09/04/24 21:58 Whole Blood INR 1.2 (0.9-1.1) H 09/04/24 20:52 APTT 26.7 SEC (26.0-36.8) 09/04/24 21:58 VBG pH 7.43 (7.32-7.43) 09/04/24 23:00 VBG pCO2 51 mmHg 09/04/24 23:00 VBG pO2 45 mmHg 09/04/24 23:00 VBG HCO3 34 mmol/L (22-26) H 09/04/24 23:00 VBG O2 Saturation 70.0 % 09/04/24 23:00 VBG Base Excess 8.7 mmol/L 09/04/24 23:00 Sodium Cancelled 09/11/24 07:33 Potassium Cancelled 09/11/24 07:33 Chloride Cancelled 09/11/24 07:33 Carbon Dioxide Cancelled 09/11/24 07:33 Anion Gap Cancelled 09/11/24 07:33 BUN 116 mg/dL (9-16) H 09/09/24 08:07 Creatinine 9.40 mg/dL (0.5-1.4) H* 09/09/24 08:07 Estim Creat Clear Calc 9.4 09/09/24 08:07 Estimated GFR 5 09/09/24 08:07 POC Glucose 120 mg/dL (60-115) H 09/12/24 11:31 Random Glucose 366 mg/dL (60-115) H* 09/09/24 08:07 Calcium 6.6 mg/dL (8.4-10.2) L D 09/09/24 08:07 Phosphorus 7.5 mg/dL (2.7-4.5) H 09/05/24 07:57 Magnesium 2.3 mg/dL (1.6-2.6) 09/05/24 07:57 Total Bilirubin 0.7 mg/dL (0.0-1.0) 09/05/24 07:57 AST 41 U/L (5-31) H 09/05/24 07:57 ALT 37 U/L (0-31) H 09/05/24 07:57 Alkaline Phosphatase 202 U/L (39-117) H 09/05/24 07:57 Troponin I High Sens 135.5 ng/L (<3.5-17.0) H* 09/04/24 23:29 Total Protein 7.5 g/dL (6.5-8.0) 09/05/24 07:57 Albumin 3.9 g/dL (3.5-5.0) 09/05/24 07:57 Albumin (Send Out) 4.2 g/dL (3.6-5.1) 09/08/24 14:30 Triglycerides 112 mg/dL (<150) 09/05/24 07:57 Cholesterol 162 mg/dL (<200) 09/05/24 07:57 LDL Cholesterol, Calc 100 mg/dL (<100) H 09/05/24 07:57 HDL Cholesterol 40 mg/dL (>40) L 09/05/24 07:57 CSF Tube Number 2 09/08/24 14:30 CSF Tube Number 4 09/08/24 14:30 CSF Tube Number Cancelled 09/08/24 14:30 CSF Volume 5.0 ML 09/08/24 14:30 CSF Appearance CLEAR 09/08/24 14:30 CSF Color COLORLESS 09/08/24 14:30 CSF WBC 2 MM*3 09/08/24 14:30 CSF RBC 3 MM*3 09/08/24 14:30 CSF Lymphocytes 50 % 09/08/24 14:30 CSF Monocytes % 50 % 09/08/24 14:30 CSF Appearance (b) Cancelled 09/08/24 14:30 CSF Appearance (b) Clear, Colorless 09/08/24 14:30 CSF Glucose 243 mg/dL 09/08/24 14:30 CSF Glucose Cancelled 09/08/24 14:30 CSF Total Protein 54.3 mg/dL (15-45) H 09/08/24 14:30 CSF Albumin 25.7 mg/dL (8.0-42.0) 09/08/24 14:30 CSF IgG Index 0.41 (<0.70) 09/08/24 14:30 CSF IgG Synthesis Rate -6.8 mg/24 h (-9.9-3.3) 09/08/24 14:30 CSF Myelin Basic Protein <2.0 mcg/L (<=4.0) 09/08/24 14: CSF/Serum IgG Index 3.5 mg/dL (0.8-7.7) 09/08/24 14:30 CSF Lyme IgG (Immblot) NO BANDS DETECTED 09/08/24 14:30 CSF Lyme IgM (Immblot) NO BANDS DETECTED 09/08/24 14: IgG Index 1400 mg/dL (600-1640) 09/08/24 14:30 Impressions Brain MRI 09/05/24 11:49 IMPRESSION: No acute intracranial hemorrhage. Stable brain suggesting infratentorial and supratentorial compartment demyelinating plaques. Tumefactive active plaque in the left thalamus and or right ventral medulla oblongata /mid camilla junction should be considered. . Discussed with the requesting physician Dr. Chapin Casillas on September 05, 2024 at 12:45 PM Electronically signed by: Shadi Lopez MD 09/05/2024 12:46 PM EDT RP Lumbar Puncture Fluoroscopy 09/08/24 14:10 IMPRESSION: Successful L3-4 interlaminar lumbar puncture. 15 mL clear CSF obtained passively. No immediate complication. Electronically signed by: Damon Alanis MD 09/08/2024 03:10 PM EDT RP Discharge Plan Discharge Anticipated Discharge Date/Time: 09/10/24 08:29 Patient Disposition: Home Health Service Discharge Diagnosis: Relapsing remitting MS Referrals: Liv Malik MD [Physician, Neurology] Genevieve Gtz MD [Primary Care Provider, Internal Medicine] - 1 Week Discharge Medications: New oxycodone 5 mg tablet 5 mg PO Q8H PRN (Reason: pain) Qty: 15 0RF Rx Instructions: Partial Fill upon patient request. teriflunomide [Aubagio] 7 mg tablet 7 mg PO DAILY Qty: 90 0RF Lokelma 5 gram powder in packet 5 g PO DAILY Qty: 30 0RF Continued carvedilol 12.5 mg Tablet 12.5 mg PO BID 90 Days Qty: 180 0RF Protocol: Hold for SBP/HR < HOLD for SBP < : 90 HOLD for HR < : 60 hydralazine 50 mg Tablet 50 mg PO TID 90 Days Qty: 270 0RF Protocol: Hold for SBP< HOLD for SBP < : 90 acetaminophen 325 mg tablet 650 mg PO Q4H PRN (Reason: mild pain) (DME) FreeStyle Lite Strips Strip Qty: 100 0RF Rx Instructions: Test four times a day or as directed. (DME) blood-glucose meter [FreeStyle Lite Meter] Kit Qty: 1 0RF Rx Instructions: As Directed (DME) pen needle, diabetic 32 gauge x 1/4 needle Qty: 100 0RF Rx Instructions: Use four times a day or as directed. (DME) lancets [FreeStyle Lancets] 28 gauge misc Qty: 100 0RF Rx Instructions: Test four times a day or as directed. lidocaine 5 % adhesive patch,medicated 1 patch topical DAILY PRN (Reason: Pain) nitroglycerin 0.4 mg tablet, sublingual 0.4 mg sublingual DIRECTED PRN (Reason: Angina) albuterol sulfate [Ventolin HFA] 90 mcg/actuation HFA aerosol inhaler 2 puff inhalation Q6H PRN (Reason: wheezing) calcium carbonate [Tums] 200 mg calcium (500 mg) Tablet,Chewable 200 mg PO TIDWM PRN (Reason: Acid Reflux) ondansetron 4 mg tablet,disintegrating 4 mg PO Q8H PRN (Reason: nausea and vomiting) Qty: 12 0RF Discontinued oxycodone 5 mg tablet 5 mg PO TID PRN (Reason: Pain) Discharge Orders: Discharge Order (Routine); Ordered 09/12/24 Ordered By: Paul Diane Diet: Advance to usual diet Activity on Discharge: As tolerated Stand Alone Forms: Patient Portal Discharge page Print Language: Micronesian Care Plan Goals: Follow up with Neurology for results of lumbar puncture Health Concerns: Relapsing and remitting MS Plan of Treatment: Follow up with primary care provider as needed Take all medications as prescribed: starting Aubagio 7 mg once daily; start Lokelma 5 mg once daily Follow up with Neurology in 2 weeks Assessment: See discharge summary
[2024-09-12 15:41] VITALS: BP 172/94; PULSE 89; RESP 20; TEMP 36.1; O2SAT 95
--- NOTE | 2024-09-12 15:58 | MHC.CM.PN ---
Second IMM 09/12/24, pt. has been medically cleared to DC, she will go home, she declined VNA services, provider aware, via BLS this afternoon.
[2024-09-19 08:14] LABS: Prealbumin, CSF 4.9
[2024-09-19 08:15] LABS: Albumin, CSF 59.3
[2024-09-19 08:17] LABS: Beta Globulin, CSF 14.3; Gamma Globulin 8.9
--- NOTE | 2024-09-26 06:17 | PC.NURSE ---
Late Entry: On 09/11/2024 at 1944, per pt request for a pain score of 8/10, pt received 5mg of Oxycodone per request.
== END 2024-09-12 17:00 | disposition home health service (06) | DRG 58 ==
LOC: HO.ED 09-05 00:45 → HO.EDOVER 09-05 00:48 → HO.ICU 09-05 01:14 → HO.IMC 09-05 22:31
PROVIDERS: Internal Medicine Nephrology; Nurse Practitioner Acute Care; Physician Assistant Medical; Admitting Provider Physician Assistant Medical; Emergency Provider Emergency Medicine Emergency Medical Services; PCP Student in an Organized Health Care Education/Training Program; Visit Provider Family Medicine
DX: G35 Multiple sclerosis (principal); N18.6 End stage renal disease; F11.20 Opioid dependence, uncomplicated; I13.2 Hypertensive heart and chronic kidney disease with heart failure and with stage 5 chronic kidney disease, or end stage renal disease; I50.22 Chronic systolic (congestive) heart failure; J96.11 Chronic respiratory failure with hypoxia; L97.429 Non-pressure chronic ulcer of left heel and midfoot with unspecified severity; L97.419 Non-pressure chronic ulcer of right heel and midfoot with unspecified severity; G81.91 Hemiplegia, unspecified affecting right dominant side; E11.22 Type 2 diabetes mellitus with diabetic chronic kidney disease; E11.42 Type 2 diabetes mellitus with diabetic polyneuropathy; E11.319 Type 2 diabetes mellitus with unspecified diabetic retinopathy without macular edema; H54.8 Legal blindness, as defined in USA; G89.29 Other chronic pain; E11.621 Type 2 diabetes mellitus with foot ulcer; E11.65 Type 2 diabetes mellitus with hyperglycemia; E87.5 Hyperkalemia; Z76.5 Malingerer [conscious simulation]; D63.1 Anemia in chronic kidney disease; Z99.81 Dependence on supplemental oxygen; Z91.148 Patient's other noncompliance with medication regimen for other reason; R29.810 Facial weakness; Z79.899 Other long term (current) drug therapy
CPT/HCPCS: 36415; 62328; 70450; 70496; 70498; 70551; 71045; 80048; 80051; 80053; 80061; 82042; 82803; 82945; 82947; 83735; 83873; 83916; 84100; 84132; 84157; 84166; 84484; 85025; 85610; 85730; 86617; 87015; 87040; 87070; 87205; 89051; 90999; 92610; 93005; 93306; 97162; 97166; 97530; 97535; 99285; J0131; J0613; J1171; J1200; J1920; J2765; J2919; J3101; J3360; Q9957; Q9967

== ENCOUNTER → 2024-09-04 20:52 | Outpatient (BNV) | payer OTHER, SELFPAY | PROVIDERS: Admitting Provider Physician Assistant Medical; Emergency Provider Emergency Medicine Emergency Medical Services; PCP Student in an Organized Health Care Education/Training Program; Visit Provider Internal Medicine Cardiovascular Disease | DX: R00.0 Tachycardia, unspecified (principal); I45.10 Unspecified right bundle-branch block | CPT/HCPCS: 93010 ==

== ENCOUNTER → 2024-09-04 20:52 | Outpatient (BNV) | payer OTHER, SELFPAY | PROVIDERS: Emergency Provider Emergency Medicine Emergency Medical Services; Visit Provider Specialist | DX: R53.1 Weakness (principal) | CPT/HCPCS: 70450; 70496; 70498 ==

== ENCOUNTER → 2024-09-05 00:05 | Outpatient (BNV) | payer OTHER, SELFPAY | PROVIDERS: Admitting Provider Physician Assistant Medical; Emergency Provider Emergency Medicine Emergency Medical Services; PCP Student in an Organized Health Care Education/Training Program; Visit Provider Internal Medicine Cardiovascular Disease | DX: I51.7 Cardiomegaly (principal) | CPT/HCPCS: 93306 ==

== ENCOUNTER 2024-09-05 00:47 | Outpatient (BNV) | payer OTHER, SELFPAY | END 2024-09-06 00:55 | PROVIDERS: Admitting Provider Physician Assistant Medical; Emergency Provider Emergency Medicine Emergency Medical Services; PCP Student in an Organized Health Care Education/Training Program; Visit Provider Internal Medicine Cardiovascular Disease | DX: I45.2 Bifascicular block (principal) | CPT/HCPCS: 93010 ==

== ENCOUNTER 2024-09-05 00:47 | Outpatient (BNV) | payer OTHER, SELFPAY | END 2024-09-08 07:00 | PROVIDERS: Admitting Provider Physician Assistant Medical; Emergency Provider Emergency Medicine Emergency Medical Services; PCP Student in an Organized Health Care Education/Training Program; Visit Provider Radiology Diagnostic Radiology | DX: R53.1 Weakness (principal) | CPT/HCPCS: 62328 ==

== ENCOUNTER 2024-09-05 00:47 | Outpatient (BNV) | payer OTHER, SELFPAY | END 2024-09-05 22:00 | PROVIDERS: Admitting Provider Physician Assistant Medical; Emergency Provider Emergency Medicine Emergency Medical Services; PCP Student in an Organized Health Care Education/Training Program; Visit Provider Radiology Diagnostic Radiology | DX: I63.9 Cerebral infarction, unspecified (principal) | CPT/HCPCS: 70551 ==

== ENCOUNTER → 2024-09-05 00:47 | Outpatient (BNV) | payer OTHER, SELFPAY | PROVIDERS: Admitting Provider Physician Assistant Medical; Emergency Provider Emergency Medicine Emergency Medical Services; Visit Provider Psychiatry & Neurology Neurology | DX: I63.30 Cerebral infarction due to thrombosis of unspecified cerebral artery (principal) | CPT/HCPCS: 99222; 99232 ==

== ENCOUNTER → 2024-09-05 00:47 | Outpatient (BNV) | payer OTHER, SELFPAY | PROVIDERS: Admitting Provider Physician Assistant Medical; Emergency Provider Emergency Medicine Emergency Medical Services; PCP Student in an Organized Health Care Education/Training Program; Visit Provider Physician Assistant Medical | DX: G35 Multiple sclerosis (principal) | CPT/HCPCS: 99233; 99499 ==

== ENCOUNTER → 2024-09-05 00:47 | Outpatient (BNV) | payer OTHER, SELFPAY | PROVIDERS: Admitting Provider Physician Assistant Medical; Emergency Provider Emergency Medicine Emergency Medical Services; PCP Student in an Organized Health Care Education/Training Program; Visit Provider Physician Assistant Medical | DX: I63.9 Cerebral infarction, unspecified (principal) | CPT/HCPCS: 99291 ==

== ENCOUNTER 2024-10-29 09:24 | Inpatient (IN) | payer OTHER, SELFPAY ==
[2024-10-29] VITALS (9 sets, daily range): BP systolic 175–238; BP diastolic 88–119; PULSE 85–99; RESP 12–18; TEMP 36.2–36.8; O2SAT 94–98; BMI 33.9
--- NOTE | ~2024-10-29 | CT_ITS ---
EXAMINATION: CT HEAD WITHOUT CONTRAST CLINICAL INFORMATION: Right upper and lower extremity weakness COMPARISON: September 04, 2024 TECHNIQUE: Contiguous axial imaging was performed from the skull base to vertex without intravenous administration of contrast. This CT examination was performed using dose optimization techniques as appropriate, variously including the following: *Automated exposure control *Adjustment of mA and/or kV according to patient size (this includes techniques or standardized protocols for targeted exams where dose is matched to indication/reason for exam; i.e. extremities or head) *Use of iterative reconstruction technique DLP: 746 mGY*cm FINDINGS: There is new focal low attenuation in the left thalamus. There is stable focal encephalomalacia involving the superior right cerebellum. There is no intracranial hemorrhage. There is no mass-effect or midline shift. Basal cisterns and ventricles are within normal limits for age/cerebral volume. Orbits are symmetrical and unremarkable. Paranasal sinuses and mastoid air cells are pneumatized. There are no bony abnormalities. CT/CT head/brain wo IV con IMPRESSION: There is focal low attenuation in the left thalamus that is new since the prior exam raising concern for infarct. Dr Kyle Maxewll notified via [place] text at 12:26pm ET Electronically signed by: Juan Alberto Guevara MD 10/29/2024 12:28 PM EDT
--- NOTE | ~2024-10-29 | MR_ITS ---
CLINICAL HISTORY: Right upper and lower extremity weakness rule out --- Additional Notes or Special Instructions: Patient has MS, evaluate for possible MS flare versus stroke MR Brain without gadolinium Comparison: CT/CO/SR - CT HEAD WITHOUT IV CONTRAST - 10/29/24 11:57 EDT MR/REG - MR HEAD/BRAIN W CON - 08/21/24 17:55 EDT Findings: No restricted diffusion. No intra-axial mass or hemorrhage. There is a focal area of T2 hyperintensity and T1 hypointensity measuring 1.4 x 0.6 cm in the right cerebellar hemisphere with minimal adjacent edema which has an appearance suggesting encephalomalacia /inactive plaque and may be residua from previous active plaque. Multifocal small T2 and FLAIR hyperintensities in the subcortical and periventricular white matter which are unchanged in comparison to 08/21/2024. No midline shift. No hydrocephalus. Previously seen enhancing thalamic lesion on the left is now T2 hyperintense and T1 hypointense measuring 7 mm in diameter, without surrounding edema. Vascular flow voids are intact. Similar appearance of previous left retinal detachment. Phthisis bulbi of the right globe. The sinuses and mastoid air cells are clear. No focal bone lesion. IMPRESSION: 1. No evidence of acute stroke. 2. Interval change in appearance of left thalamic plaque, now has appearance of inactive plaque. 3. No significant change in the number or size of white matter abnormalities. 4. Probable inactive plaque in the right cerebellar hemisphere. This document has been electronically signed by: Jorge Paz MD on 10/29/2024 21:30:50
--- NOTE | 2024-10-29 09:40 | ECG_ITS ---
Test Reason : WEAKNESS Blood Pressure : */* mmHG Vent. Rate : 95 BPM Atrial Rate : 95 BPM P-R Int : 158 ms QRS Dur : 176 ms QT Int : 466 ms P-R-T Axes : 59 -42 49 degrees QTcB Int : 585 ms Normal sinus rhythm Possible Left atrial enlargement Left axis deviation Right bundle branch block Abnormal ECG When compared with ECG of 06-Sep-2024 00:55, No significant change was found Referred By: Generic ED Physician Electronically Signed By: Vinny Vera
[2024-10-29 10:09] LABS: MANUAL DIFF FLAG NO
--- NOTE | 2024-10-29 10:12 | ED_ITS ---
HPI - General Adult General Chief complaint: General Medical Stated complaint: HEADACHE, WEAKNESS, VOMITING Time Seen by Provider: 10/29/24 09:57 History of Present Illness ED Provider: Dr. 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 She complained of subjective fever and chills, nausea and vomiting unable to hold anything down. Patient states that she missed dialysis yesterday and was last dialyzed on Sunday11/25/2024. Patient states that she developed a headache yesterday, the headache as a pressure-like pain on the right side of her head in his greater than 10/10 associated with nausea and vomiting as well. Related Data Home Medications ?Medication ?Instructions ?Recorded ?Confirmed albuterol sulfate 90 mcg/actuation 2 puff inhalation Q 6H PRN wheezing 01/15/24 10/29/24 aerosol inhaler (Ventolin HFA) lidocaine 5 % topical patch 1 patch topical DAILY PRN Pain 01/15/24 10/29/24 nitroglycerin 0.4 mg sublingual 0.4 mg sublingual D IRECTED PRN 01/15/24 10/29/24 tablet Angina acetaminophen 325 mg tablet 650 mg PO Q4H PRN mild jamar n 03/11/24 10/29/24 calcium carbonate (Tums) 200 mg PO TIDWM PRN Acid Ref lux 07/03/24 10/29/24 Previous Rx's ?Medication ?Instructions ?Recorded carvedilol 12.5 mg tablet 12.5 mg PO BID 90 days #180 tabs 12/16/23 hydralazine 50 mg tablet 50 mg PO TID 90 days #270 ta bs 12/16/23 blood sugar diagnostic (FreeStyle #100 ea 08/26/24 Lite Strips) blood-glucose meter (FreeStyle #1 ea 08/26/24 Lite Meter kit) lancets 28 gauge (FreeStyle #100 ea 08/26/24 Lancets) pen needle, diabetic 32 gauge x #100 ea 08/26/24 1/4 oxycodone 5 mg tablet 5 mg PO Q8H PRN pain #15 tab s 09/10/24 fidaxomicin 200 mg tablet (Dificid) 200 mg PO Q12H #22 tabs 11/04/24 Allergies Allergy/AdvReac Type Severity Reaction Status Date / Time gabapentin Allergy Severe Facial Verified 10/29/24 09:37 Swelling tramadol Allergy Severe Facial Verified 10/29/24 09:37 Swelling vancomycin Allergy Severe Anaphylaxis Verified 10/29/24 09:37 azithromycin (From Zithromax) Allergy Intermediate Hives Verified 10/29/24 09:37 morphine (MORPHINE) Allergy Intermediate Itching Verified 10/29/24 09:37 Review of Systems 2 Review of Systems: Yes all other systems are reviewed and are negative [facility] Past Medical History [facility] Narrative: Social history: She denies tobacco, alcohol and drug use. Medical History Multiple sclerosis Cerebral infarction Hyperkalemia ESRD on dialysis Hypoxia End stage renal disease on dialysis Chronic ulcer of right foot due to diabetes mellitus Chronic ulcer of left foot due to diabetes mellitus DM foot ulcer ESRD on hemodialysis Hypotonic neurogenic bladder Diabetic polyneuropathy Hypertensive emergency Decompensated heart failure Renal failure Hypertension, uncontrolled Medical non-compliance Pericarditis Unspecified hypertension, condition or complication Metabolic acidosis Gastroparesis End stage chronic kidney disease Chronic kidney disease Anemia Plantar ulcer of left foot MDD (major depressive disorder) CKD (chronic kidney disease) Hypertension Vomiting Chronic pain Non-compliance with renal dialysis End-stage renal disease (ESRD) Diabetic foot ulcer associated with type 2 diabetes mellitus Cardiomyopathy HFrEF (heart failure with reduced ejection fraction) delivery delivered Anemia in chronic kidney disease (CKD) CKD (chronic kidney disease) Abnormal finding on echocardiogram Elevated troponin Acute worsening of stage 3 chronic kidney disease Generalized edema Sepsis Cellulitis Pleural effusion Atypical chest pain Bone infection PAD (peripheral artery disease) Cellulitis and abscess of foot Osteomyelitis Asthma Depression with anxiety Diabetic retinopathy Blind right eye Diabetes Back pain Surgical History Tubal ligation status Previous section Hx laparoscopic cholecystectomy Hx of surgical procedure (~09/11/23) 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 Family History Family History Mother Coronary artery disease Myocardial infarction Stroke Diabetes mellitus Father Myocardial infarction Social History Social History Household Members: Family and Children Household Members Other:: sister, brother, [id number] Housing: Apartment Housing Other:: Apartment, 1st floor Are you a primary rn wound care to a significant other at home: No Do you presently have visiting nurse or other home services: No Unable to assess alcohol history related to: Unknown Alcohol intake: never Comment: Intermittently refuses Patient Tobacco Use Status: Never used Tobacco Smoked in Last 30 Days: No e-Cigarette/Vaping Use: Never Used Second Hand Smoke Exposure: No Use of substances other than those prescribed or required for medical reasons: No Currently Displaying Signs/Symptoms of Drug Intoxication Withdrawal: No Have you been hit, kicked, punched, or otherwise hurt by someone within the past year? If so, by whom?: No Do you feel safe in your current relationship?: Yes Is there a partner from a previous relationship who is making you feel unsafe now?: No Are you made to feel afraid or neglected: No Spiritual Healthcare Practices: none Are you DNR?: No Advance Directives: Yes Advance Directives Information Provided: No Advance Directives on File: Yes Advance Directives Date on File: 08/28/23 Do you have a plan to hurt others: No Plan Recently lost weight without trying: No Nutrition Risks: No Nutritional Risk Patient : No : No Poor oral hygiene: No service: No Current occupational status: unemployed and disabled Gender identity: Female Physical Exam ED Vital Signs: Vital Signs - 24 hr 10/29/24 09:35 10/29/24 10:00 Temperature 98.2 F Pulse Rate 96 96 Respiratory Rate 18 Blood Pressure 213/119 H 207/94 H Pulse Oximetry 98 Oxygen Delivery Method Nasal Cannula BMI result Body Mass Index 33.9 Vital signs revealed an elevated blood pressure of 213/119-this may be related to her pain or renal failure. Vital signs otherwise unremarkable Exam: General: Awake, alert in no distress Head: Normocephalic, atraumatic EENT: Bilateral blindness, mouth revealed moist membranes with no erythema or exudates Neck: Supple, no adenopathy Lung: breath sounds symmetric, no wheezing, rales or rhonchi Chest: symmetric movement, nontender Heart: regular rate and rhythm, normal S1, S2 no murmurs or rubs Abdomen: soft, non-tender, nondistended, normal bowel sounds Back: no vertebral tenderness, no CVAT Extremities: no deformities, moves all extremities symmetrically Neuro: General: ?Awake, alert, oriented, normal speech Cranial nerves: ?Cranial nerves ?intact Strength: ?Left upper and lower extremity normal strength, minimal ability to hold her arm and leg up against gravity but can move slightly from [id number] Psych: Pleasant, cooperative NIH Stroke Scale Level of Consciousness: Alert Level of Consciousness Questions: Answers both questions correctly Level of Consciousness Commands: Performs both tasks correctly Best Gaze: Normal Visual: No visual loss Facial Palsy: Normal Motor Arm (Right): Some effort against gravity Motor Arm (Left): No drift Motor Leg (Right): Some effort against gravity Motor Leg (Left): No drift Limb Ataxia: Absent Sensory: Normal Best Language: No aphasia Dysarthia: Normal Extinction and Inattention: No abnormality Score: 4 Medications Administered Generic Name Dose Route Start Last Admin Trade Name Freq PRN Reason Stop Dose Admin Carvedilol 12.5 mg 10/29/24 21:00 11/06/24 20:47 Carvedilol 12.5 Mg Tablet PO 12.5 mg BID VASILE Administration Protocol Dextrose 25 gm 10/29/24 15:24 11/04/24 11:04 Dextrose 50 % 25 Gm/50 Ml Syringe IVPUSH 25 gm Q15M PRN Administration per Hypoglycemia Standing Ord. Protocol Diphenhydramine HCl 25 mg 10/31/24 11:28 11/07/24 00:56 Diphenhydramine Hcl 50 Mg/Ml Vial IVPUSH 25 mg Q6H PRN Administration Itching Fidaxomicin 200 mg 11/03/24 01:00 11/07/24 00:56 Fidaxomicin 200 Mg Tablet PO 200 mg Q12H VASILE Administration Heparin Sodium (Porcine) 5,000 unit 10/29/24 15:00 11/07/24 06:22 Heparin Sodium,Porcine 5,000 Unit/Ml Vial SUBCUT Not Given Q8H [facility] Hydralazine HCl 50 mg 10/29/24 15:00 11/06/24 20:47 Hydralazine Hcl 50 Mg Tablet PO 50 mg TID VASILE Administration Protocol Hydralazine HCl 10 mg 10/29/24 22:57 11/04/24 15:05 Hydralazine Hcl 20 Mg/Ml Vial IVPUSH 10 mg Q6H PRN Administration SBP>180 Protocol Hydromorphone HCl 0.5 mg 11/05/24 16:58 11/07/24 06:38 Hydromorphone Hcl 0.5 Mg/0.5 Ml Syringe IVPUSH 0.5 mg Q3H PRN Administration Pain, Severe (Pain Scale 7-10) Protocol Insulin Human Lispro 0 unit 10/31/24 21:10 11/07/24 07:52 Insulin Lispro 100 Unit/Ml 3 Ml Vial SUBCUT Not Given QIDACHS [facility] Protocol Ondansetron HCl 4 mg 10/29/24 14:49 11/06/24 08:52 Ondansetron Hcl 4 Mg/2 Ml Vial IVPUSH 4 mg Q8H PRN Administration Nausea and Vomiting Sodium Chloride 3 ml 10/29/24 16:00 11/06/24 20:48 0.9 % Sodium Chloride Flush 3 Ml Syringe IVFLUSH 3 ml QSHIFT [facility] Administration Discontinued Medications Generic Name Dose Route Start Last Admin Trade Name Freq PRN Reason Stop Dose Admin Diphenhydramine HCl 50 mg 10/29/24 10:48 10/29/24 11:14 Diphenhydramine Hcl 50 Mg/Ml Vial IVPUSH 10/29/24 10:49 50 mg ONCE STA Administration Diphenhydramine HCl 25 mg 10/30/24 10:21 10/30/24 10:47 Diphenhydramine Hcl 50 Mg/Ml Vial IVPUSH 10/30/24 10:22 25 mg ONCE ONE Administration Diphenhydramine HCl 25 mg 10/30/24 15:59 10/30/24 16:35 Diphenhydramine Hcl 50 Mg/Ml Vial IVPUSH 10/30/24 16:00 25 mg ONCE ONE Administration Fidaxomicin 200 mg 11/04/24 08:00 11/04/24 08:10 Fidaxomicin 200 Mg Tablet PO Not Given Q12H [facility]AS[facility] Hydromorphone HCl 1 mg 10/29/24 10:48 10/29/24 11:14 Hydromorphone Hcl 1 Mg/Ml Syringe IVPUSH 10/29/24 10:49 1 mg ONCE STA Administration Protocol Hydromorphone HCl 0.5 mg 10/29/24 17:19 11/05/24 12:58 Hydromorphone Hcl 0.5 Mg/0.5 Ml Syringe IVPUSH 0.5 mg Q4H PRN Administration Pain, Severe (Pain Scale 7-10) Protocol Methylprednisolone Sodium 66 mls @ 66 mls/hr 10/30/24 12:45 10/31/24 10:00 Succinate 1,000 mg/ Sodium IV 10/31/24 09:59 Infused Chloride DAILY VASILE Infusion Lactated Ringer's 500 mls @ 999 mls/hr 11/03/24 20:00 11/03/24 20:52 Lr IV 11/03/24 20:30 Infused .Q31M VASILE Infusion Insulin Glargine 10 unit 10/31/24 21:15 11/01/24 21:07 Insulin Glargine,Hum.Rec.Anlog 100 Unit/Ml 10 Ml Vial SUBCUT 10 unit BEDTIME VASILE Administration Insulin Glargine 5 unit 11/02/24 21:00 11/02/24 21:23 Insulin Glargine,Hum.Rec.Anlog 100 Unit/Ml 10 Ml Vial SUBCUT Not Given BEDTIME VASILE Insulin Human Lispro 0 unit 10/29/24 16:30 10/31/24 21:23 Insulin Lispro 100 Unit/Ml 3 Ml Vial SUBCUT Not Given QIDACHS [facility] Protocol Insulin Human Regular 5 unit 10/31/24 10:15 10/31/24 13:06 Insulin Regular, Human 100 Unit/Ml 10 Ml Vial IVPUSH 10/31/24 10:16 Not Given ONCE ONE Loperamide HCl 2 mg 11/02/24 20:21 11/02/24 22:50 Loperamide Hcl 2 Mg Capsule PO 11/02/24 20:22 2 mg ONCE STA Administration Metoclopramide HCl 10 mg 10/29/24 10:48 10/29/24 11:14 Metoclopramide Hcl 10 Mg/2 Ml Vial IVPUSH 10/29/24 10:49 10 mg ONCE STA Administration Sodium Zirconium Cyclosilicate 10 gm 10/29/24 10:48 10/29/24 11:15 Sodium Zirconium Cyclosilicate 10 Gm Powd.Pack PO 10/29/24 10:49 10 gm ONCE ONE Administration Medical Decision Making Medical Decision Making MDM Narrative: 34-year-old female with a history of ESRD on HD //Sun, MS ( newly diagnosed August 2024-treated with high-dose steroids x5 days), [id number] 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 She complained of subjective fever and chills, nausea and vomiting unable to hold anything down. Patient states that she missed dialysis yesterday and was last dialyzed on Sunday11/25/2024. Patient states that she developed a headache yesterday, the headache as a pressure-like pain on the right side of her head in his greater than 10/10 associated with nausea and vomiting as well. Vital signs revealed an elevated blood pressure of 213/119, most likely secondary to her pain or renal failure. Exam did reveal right-sided weakness however she had similar presentation recently and was diagnosed with demyelinating disease most likely MS. NIH stroke scale was 4. Differential diagnosis: ?Includes but is not limited to intracranial bleed, stroke, MS flare, migraine headache, electrolyte abnormalities, anemia Course: 11:[address] scan of the brain to rule out bleed versus stroke. Patient's NIH stroke scale was 4 however she is outside of theTNK therapeutic window and also she most likely has MS as the cause of her symptoms. My independent interpretation patient's laboratory evaluation is as follows: Normocytic anemia with an H&H of 10 and 31.1 Low platelet count a 115,000- chronic. Elevated BUN and creatinine 95 and 11.5. These findings are consistent with her chronic kidney disease. Patient had an elevated potassium of 6.9. Elevated AST 38. Elevated alk-phos 212. Patient was treated with Dilaudid 1 mg IV, Benadryl 50 mg IV and Reglan 10 mg IV. Patient was also given Lokelma 10 mg orally for elevated potassium. Twelve EKG is consistent with a right bundle-branch block which is old, with no peaked T-waves. 12:03 I did discuss the patient's presentation over the phone with her cementer machine, Dr. Siddiqi. Given the patient's high potassium, he felt that the patient should be admitted for dialysis today. I also discuss the patient's presentation over tiger text with the covering hospitalist, physician marketing communications assistant Rosemary Rollins and he agree to admit the patient for further treatment. 12:20 I did discuss the patient's presentation with our neurologist, Dr. Malik. He reviewed his previous neurology note and MRI of the patient's brain. He recommended 1 dose of high-dose Solu-Medrol 1000 mg IV. He will consult on the patient to determine if the patient needs further IV doses of Solu-Medrol. I ordered this 1st dose and I did discuss this treatment plan with the covering hospitalist. 12:42 CT scan of the brain was interpreted as follows by the radiologist ?focal low attenuation in the left thalamus that is new since the prior exam raising concern for infarct ?. I did discuss this with Dr. Malik and he recommended MRI of the brain. He recommended against giving steroids at this time until the MRI is available. I did discuss this over tiger text with the covering hospitalist. Differential Diagnosis Differential Diagnoses: The differential diagnosis associated with the presentation includes (See above) Admission/Observation Consideration of admission/observation: Escalation of care including admission/observation considered (Yes) Consult Healthcare Provider Management of the patient was discussed with: Hospitalist and Certified Solid Waste Facility Operator Lab Data MDM Lab Attestation statement: I reviewed the patient's lab results. 10/30/24 10:35 11/04/24 12:34 Labs: Lab Results 10/29/24 Range/Units 10:06 WBC 6.0 (4.8-10.8) X10*3/uL RBC 3.26 L (4.20-5.50) X10*6/uL Hgb 10.2 L (12.0-16.0) g/dl Hct 31.1 L (37.0-47.0) % MCV 95.4 (80.0-98.0) fL MCH 31.3 (27.0-33.0) pg MCHC 32.8 (31.0-35.0) g/dl RDW 14.2 (11.0-16.0) % Plt Count 115 L (160-400) X10*3/uL MPV 12.6 H (9.4-12.3) fL Immature Gran % (Auto) 0.3 (0.0-0.4) % Neut % (Auto) 78.4 H (45-73) % Lymph % (Auto) 12.4 L (20-40) % [place] % (Auto) 5.0 (2-11) % Eos % (Auto) 3.2 (0-4) % Baso % (Auto) 0.7 (0-2) % Lymph # (Auto) 0.7 L (1.2-4.9) X10*3/uL [place] # (Auto) 0.3 (0.1-1.2) X10*3/uL Eos # (Auto) 0.2 (0.0-0.4) X10*3/uL Baso # (Auto) 0.0 (0.0-0.2) X10*3/uL Abs Immat Gran (auto) 0.02 (0.00-0.03) X10*3/uL Absolute Neuts (auto) 4.7 (2.0-8.3) x10*3/uL Absolute Nucleated RBC 0.000 (0.0-0.012) X10*3/uL Nucleated RBC % (auto) 0.0 (0.0-0.2) /100WBC Sodium 138 (135-145) mmol/L Potassium 6.9 H* D (3.3-5.1) mmol/L Chloride 100 (96-108) mmol/L Carbon Dioxide 18 L (22-29) mmol/L Anion Gap 27 H (12-20) BUN 95 H (9-16) mg/dL Creatinine 11.54 H* (0.5-1.4) mg/dL Estim Creat Clear Calc 6.7 Estimated GFR 4 Random Glucose 77 (60-115) mg/dL Calcium 8.7 D (8.4-10.2) mg/dL Total Bilirubin 1.6 H (0.0-1.0) mg/dL AST 38 H (5-31) U/L ALT 23 (0-31) U/L Alkaline Phosphatase 212 H (39-117) U/L Total Protein 9.0 H (6.5-8.0) g/dL Albumin 4.7 (3.5-5.0) g/dL Independent Interpretation I performed an independent interpretation of an: EKG Interpretation: My independent interpretation patient's 12 EKG is as follows, normal sinus rhythm with a rate of 95, normal IL interval, prolonged QRS 176 milliseconds, prolonged QTC 585 milliseconds, right bundle-branch block, no ST segment elevation, no ST segment depression, no significant T-wave abnormalities- compared to the patient's previous EKG right bundle-branch block is old. Radiology Impression Discussion of test interpretation with radiology: I have reviewed the radiologist's reading. Radiologist Impression: CT head/brain wo IV con IMPRESSION: There is focal low attenuation in the left thalamus that is new since the prior exam raising concern for infarct. Dr Kyle Maxwell notified via Normanna text at 12:26pm ET Electronically signed by: Juan Alberto Guevara MD 10/29/2024 12:28 PM EDT External Record Review External record reviewed: Inpatient record Chronic Conditions Patient?s care impacted by: Diabetes and Other (End-stage renal disease) Critical Care Time Critical Care Time Critical Care Time: Yes Total Critical Care Time: 80 Attestation: Critical Care: The patient was critically ill with a high probability of imminent or life threatening deterioration. I spent greater than 30 minutes of discontinuous time evaluating the patient,delivering critical care at the bedside, discussing and evaluating pertinent data with consultants. Critical care time does not include time spent performing separately billable procedures or teaching. Total time spent performing critical care was 80 minutes. Discharge Plan Discharge Clinical Impression: Acute hyperkalemia, Acute right-sided muscle weakness, Multiple sclerosis exacerbation Patient Disposition: Admitted As Inpatient Interventions: Admission Worksheet (ED) Last Done: 10/29/24 14:25 Discharge Date/Time: 10/29/24 14:36
[2024-10-29 10:13] LABS: Hematocrit 31.1 % (37.0-47.0); Hemoglobin 10.2 g/dl (12.0-16.0); Imm Gran Abs Auto 0.02 X10*3/uL (0.00-0.03); Imm Gran Pct Auto 0.3 % (0.0-0.4); Lymphocytes Absolute Auto 0.7 X10*3/uL (1.2-4.9); Mean Corpuscular HGB Conc 32.8 g/dl (31.0-35.0); Mean Corpuscular Hemoglobin 31.3 pg (27.0-33.0); Mean Corpuscular Volume 95.4 fL (80.0-98.0); NRBC Abs Auto 0.000 X10*3/uL (0.0-0.012); NRBC Pct Auto 0.0 /100WBC (0.0-0.2); Platelet Count 115 X10*3/uL (160-400); Red Blood Count 3.26 X10*6/uL (4.20-5.50); White Blood Count 6.0 X10*3/uL (4.8-10.8)
[2024-10-29 10:32] LABS: Alanine Aminotransferase 23 U/L (0-31); Albumin Level 4.7 g/dL (3.5-5.0); Alkaline Phosphatase 212 U/L (39-117); Anion Gap 27 (12-20); Aspartate Amino Transferase 38 U/L (5-31); Blood Urea Nitrogen 95 mg/dL (9-16); Calcium 8.7 mg/dL (8.4-10.2); Carbon Dioxide 18 mmol/L (22-29); Chloride 100 mmol/L (96-108); Creatinine Clr Calc Pharmacy 6.7; Estimated Glomerular Filt Rate 4; Potassium 6.9 mmol/L (3.3-5.1); Sodium 138 mmol/L (135-145); Total Protein 9.0 g/dL (6.5-8.0)
--- OUTSIDE RECORDS SUMMARY | 2024-10-29 11:39 | XMS_ITS | Encounter Summary ---
Author Organization [employer] Address [address] [facility] [address] [place] [address] Care Team Providers Care Urban Planning Teacher Name Role Phone Genevieve Gtz MD Primary Care Pro vider Encounter Details Date Type Department Care Team ([facility] st Contact Info) Description 10/24/2024 Telephone [facility] [address] [place], [place] [phone] Paola Thurston, RN [address] [place] [address] Social History Tobacco Use Types Packs/Day Years [...] t he electric, gas, oil or water [employer] threatened to shut off services in your [...] encounter Miscellaneous Notes * Telephone Encounter - Paola Thurston RN - 10/24/2024 1:22 PM EDT Ge[place]. TC back to pt to schedule [employer] [place]. Appt scheduled for 11/19/24 @ 3:15pm at [facility]. Pt reminded of the [employer] agreement rules, verbalized understanding. documented in this encounter Plan of Treatment Upcoming Encounters Date Type Department Care Team (Late st Contact Info) Description 11/19/2024 3:15 PM EDT Clinical Support [facility] PED[facility] [address] [place] [address] Paola Thurston RN [address] [place] [address] documented as of this encounter Goals Goal [...] documented as of this encounter Care Teams Urban Planning Teacher Relationship Specialty Start Date End Date Genevieve Gtz MD [address] [place] [address] [phone] PCP - General Internal Medicine 10/12/22 documented as of this encounter
--- OUTSIDE RECORDS SUMMARY | 2024-10-29 11:39 | XMS_ITS | Encounter Summary ---
Author Organization [employer] Address [address] [facility] [address] [place] [address] Care Team Providers Care Air Chipper Name Role Phone Carolina Hsu HOME HEALTH AIDE CAREGIVER Primary Care Provider Genevieve Wilson MD Primary Care Pro vider Reason for Visit * Reason Onset Date Comments Appointment Request 03/30/2022 Encounter Details Date Type Department Care Team ([facility] st Contact Info) Description 03/30/2022 Telephone [facility] [address] [place] [address] [phone] Carolina Hsu FNP Appointment Request Social History Tobacco Use Types [...] EST TC to pt, NCNS for todays [employer]DER Renewal appt. Pt stated she is currently admitted to [facility], she statedshe has fluid in her lungs and she's a mess. Wished patient well and told her I would forward this information to her PCP. Requested she call back to reschedule [employer] CLASS WELDER appt when she's feeling better. * Telephone Encounter - Stephen Davison - 03/30/2022 10:41 AM EST documented in this encounter Plan of Treatment Upcoming Encounters Date Type Department Care Team (Late st Contact Info) Description 11/19/2024 3:15 PM EDT Clinical Support [facility] MED [facility] PED[facility] [address] [place] [address] Paola Thurston, RN [address] [place], [place] documented as of this encounter Visit Diagnoses Not on filedocumented in this encounter Care Teams Air Chipper Relationship Specialty Start Date End Date Carolina Hsu FNP PCP - General Family Medicine 01/16/22 10/11/22 Genevieve Gtz MD [address] [place] [id number] PCP - General Internal Medicine 10/12/22 documented as of this encounter
--- OUTSIDE RECORDS SUMMARY | 2024-10-29 11:39 | XMS_ITS | Encounter Summary ---
Author Organization [employer] Address [address] [place] [address] Care Team Providers Care Cord Splicer Name Role Phone Genevieve Gtz MD Primary Care Pro vider Reason for Visit * Reason Onset Date Comments FYI 08/08/2024 Encounter Details Date Type Department Care Team ([facility] Contact Info) Description 08/08/2024 Telephone [facility] [address] [place], [place] [phone] Genevieve Gtz MD [address] [place], [place] [phone] FYI Social History Tobacco Use Types Packs/Day Years [...] * Telephone Encounter - Armida Gómez - 08/08/2024 11:13 AM EDT [facility] reporting that patient was referred for [facility]NA services for wound care.Patient declined services, stating she manages her wound care independently and obtains her own supplies. Helen just wanted FYI to PCP documented in this encounter Plan of Treatment Upcoming Encounters Date Type Department Care Team (Late st Contact Info) Description 11/19/2024 3:15 PM EDT Clinical Support [facility] [address] [place] [phone] Paola Thurston RN [address] [place] [phone] documented as of this encounter Goals Goal [...] documented as of this encounter Care Teams Cord Splicer Relationship Specialty Start Date End Date Genevieve Gtz MD [address] [place] [phone] PCP - General Internal Medicine 10/12/22 documented as of this encounter
--- OUTSIDE RECORDS SUMMARY | 2024-10-29 11:39 | XMS_ITS | Clinical Summary ---
Author Organization [employer] Address [address] [facility] [address] [place] [address] Care Team Providers Care Intelligence Applications Name Role Phone Genevieve Gtz MD Primary [...] NEEDED FOR WHEEZING 18 g 1 02/28/19 25 Active nitroglycerin (Nitrostat) 0.[address] 1 TABLET UNDER THE TONGUE EVERY 5 MINUTES NEEDED FOR CHEST PAIN 90 tablet 02/28/19 25 Active acetaminophen (Tylenol) 325 MG tabletIndicatio ns:Acute on chronic heart failure, unspecified heart failure type (CMS/HCC) TAKE 2 TABLETS BY MOUTH EVERY 4 HOURS IF NEEDED FOR MILD PAIN 120 tablet 2 02/28/19 25 Active oxyCODONE (Roxicodone) 5 MG immediate release tabletIndicatio ns:Chronic ulcer of 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 (CMS/HCC),Chron ic wound Take 1 tablet (5 mg) by mouth every 8 (eight) hours if needed for severe pain for up to 7 days. 21 tablet 10/24/19 25 2024 Active oxyCODONE (Roxicodone) 5 MG immediate release tabletIndicatio ns:Chronic ulcer of 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 (CMS/HCC),Chron ic wound Take 1 tablet (5 mg) by mouth every 8 (eight) hours if needed for severe pain. Do not start before September 22, 2024. 84 tablet 09/23/19 25 2024 Discontinued(R eorder (will not trigger notification to Pharmacy)) Active Problems Problem Noted Date Diagnosed Date Multiple sclerosis 09/17/2024 Acute hyperkalemia 09/04/2024 Cerebral infarction 09/04/2024 MDD (major depressive disorder), recurrent episo de 09/04/2024 Hyponatremia 09/04/2024 PAD (peripheral artery disease) 09/04/2024 Prolonged QT interval 09/04/2024 Toe necrosis 09/04/2024 Ulcer of left second toe 09/04/2024 Vitreous detachment 09/04/2024 Volume overload 09/04/2024 Opioid dependence 09/04/2024 Seizure disorder 09/04/2024 Long-term current use of opiate analgesic 2024 [...] 6.0 4. Possible kidney failure? Pharmacist Notes: Discrepancies: ? Carvedilol listed as a new [...] Encounters Date Type Department Care Team Description 10/24/2024 Travel 10/24/2024 Telephone [facility] [address] [place] [address] Paola Thurston RN 10/23/2024 Refill [facility] [address] [place] [address] Paola Thurston, telecommunications repairer ulcer of 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 (CMS/HCC); Chronic wound 10/23/2024 Telephone [facility] [address], [place] [phone] Genevieve Gtz MD Med Refill 09/25/2024 Telephone [facility] [address], [place] [phone] Genevieve Gtz MD chart prep 09/17/2024 Orders Only [facility] [address] [place] [phone] Genevieve Gtz MD Multiple sclerosis (CMS/HCC) (Primary Dx) 09/15/2024 Telephone [facility] [address] [place] [address] Paola Thurston, RN INSIDE SALES RECRUITER 09/15/2024 Refill [facility] [address] [place] [phone] Genevieve Gtz MD Chronic ulcer of 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 ([facility]/HCC); Chronic wound 09/15/[address] [address] Genevieve Gtz MD Durable Medical Equipment 09/05/2024 Orders Only [facility] External Provider, [facility] 08/27/2024 Results Follow-Up [address] [address] Genevieve Gtz MD Glucose, Whole Blood, Glucose, Whole Blood, Glucose, Whole Blood 08/27/2024 Orders Only GENERIC EXTERNAL DATA DEPARTMENT Provider, Generic External Data 08/25/[address] [address] Genevieve Gtz MD Durable Medical Equipment; Med Refill 08/25/[address] [address] Genevieve Gtz MD Hospital Follow-up 08/22/2024 Refill [facility] [address] [place] [address] Paola Thurston, telecommunications repairer ulcer of 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 (CMS/HCC); Chronic wound 08/22/[address] [address] Genevieve Gtz MD Appointment Request 08/22/[address] [address] Genevieve Gtz MD Med Refill 08/18/2024 Orders Only [facility] External Provider, [facility] 08/08/2024 Telephone [facility] [address] [place] [address] Genevieve Gtz MD FYI 08/06/2024 Telephone [facility] [address] [place] [address] Genevieve Gtz MD Home care orded 07/31/2024 Orders Only [facility] External Provider, [facility] from Last 3 Months Immunizations Immunization Administration Dates Next Due DTP 08/08/1992, 2,07/05/1989,1988,1988 Hep B, Unspecified 10/21/2002,04/18/2002, 003 IPV 08/08/1992, 2,07/05/1989,1988,1988 Influenza injectable quadriv alent preservative free 09/30/2016 Influenza, IIV3, injectable 09/30/2016, 2 Influenza, seasonal, injecta ble, preservative free 12/06/2011 MMR 07/15/1995,03/25/1989 Td (adult), unspecified 03/13/2002 Tdap [...] 95 03/07/2024 9:08 AM EST Temperature 36.4 C (97.6 F) 03/07/2024 9:08 AM EST Respiratory Rate 18 03/07/2024 9:08 AM EST Oxygen Saturation 100% 03/07/2024 9:08 AM EST Inhaled Oxygen Concentration - - Weight 77.6 kg (171 lb) 03/07/2024 9:08 AM EST Height 170.2 cm (5' 7 ) 03/07/2024 9:08 AM EST Body Mass Index 26.78 03/07/2024 9:08 AM EST Plan of Treatment Upcoming Encounters Date Type Department Care Team ([facility] st Contact Info) Description 11/19/2024 3:15 PM EDT Clinical Support [facility] [address] [place] [address] Paola Thurston, K[place] [address] [place] [address] Health Maintenance Due Date Last Done Comments Disability Screening 1988 Diabetes: Foot Exam 1998 Eye Exam 1998 Alcohol/Substance Use Screening 2000 Family Planning (PISQ) 07/28/2003 HPV Vaccines (1 - 3-dose series) 07/28/2003 Diabetes: Urine Protein Screening 07/28/2007 Pneumococcal Vaccine: Pediatrics (0 to 5 Years) and At-Risk Patients (6 to 49) Years (1 of 2 - PCV) 07/28/2007 Pap Smear 2009 Cervical Cancer Screening 2018 HPV/Cotest 2018 DTaP/Tdap/Td Vaccines (8 - Td or Tdap) 06/27/2022 06/27/2012, 06/24/2012, 03/13/2002, Additional history exists COVID-19 Vaccine ( season) 2023 07/16/2020, 06/18/2020 Diabetes: Hemoglobin A1C 06/05/2024 025, 10/23/2023, 06/02/2022, Additional history exists SDOH Screening 09/19/2024 09/20/2023 Depression Screening 10/22/2024 10/23/2023, 10/23/19 24 Influenza Vaccine (#1) 2024 7, 09/30/2016, 12/06/2011, Additional history exists Lipid Panel 03/07/2025 03/07/2024 Tobacco Screening 03/07/2025 03/07/2024 Zoster Vaccines (1 of 2) 2038 RSV Patients and Patients Aged 60 years or older (1 - 1-dose 75+ series) 07/28/2063 IPV Vaccines Completed 08/08/1992, 12/28, 07/05/1989, Additional history exists Hepatitis B Vaccines Completed 10/21/2002, 04/18/2002, 03/13/2002 HIV Screening Completed 03/07/2024, 01/09/2022 Hepatitis C Screening Completed 03/07/2024 HIB Vaccines [...] Procedure Name Priority Date/Time Associated Diagnosis Comments FL GUIDED LUMBAR PUNCTURE LP Routine 09/08/2024 2:[address] CHEST WO CONTRAST Routine 08/27/2024 10:[address] ABDOMEN PELVIS WO CONTRAST Routine 08/27/2024 10:[address] HEAD WO CONTRAST Routine 08/27/2024 9 :[address] CERVICAL SPINE WO CONTRAST Routine 08/27/2024 9:55 AM EDT GLUCOSE, WHOLE BLOOD Routine 08/27/2024 9:10 AM EDT GLUCOSE, WHOLE BLOOD Routine 08/27/2024 8:37 AM EDT GLUCOSE, WHOLE BLOOD Routine 08/27/2024 8:08 AM EDT MRA HEAD W CONTRAST Routine 08/21/2024 6 :42 PM EDT MR BRAIN WO CONTRAST Routine 08/20/2024 12:15 PM EDT SARS COV2/INFLUENZA A/B AND RSV RNA QL NAAT Routine 07/31/2024 10:42 AM EDT XR CHEST 1 VIEW Routine 07/31/2024 10:34 AM EDT HEPATITIS C AB W/REFL TO [...] Recently Relevant to Health Maintenance Results * FL guided lumbar puncture LP (09/08/2024 2:10 PM EDT) Anatomical Region Laterality Modality Abdomen Radiographic Vandana ging 09/08/2024 2:10 PM EDT Narrative 09/08/2024 3:13 PM EDT [place] [address] Fluoroscopy Report Signed Patient: Shereen Taylor MR#: [id number] : 1990 Acct:[id number] Age/Sex: 34 / F ADM Date: 09/05/24 Loc: [facility] 483-[address]: Tawny Taylor DENTAL SALES REPRESENTATIVE Ordering Physician: Angela Ulloa Date of Service: 09/08/24 Procedure(s): FL guided lumbar puncture LP Accession Number(s): [id number] cc: Angela Ulloa; Genevieve Gtz MD EXAMINATION: XR LUMBAR PUNCTURE CLINICAL INFORMATION: right side weakness; concern for MS COMPARISON: None available. TECHNIQUE: Informed consent was obtained from the patient. Timeout was performed. Using fluoroscopic guidance, the L3-4 interlaminar space was identified, marked, and the skin prepped and draped in sterile fashion. Skin and subcutaneous tissues were anesthetized with 1% lidocaine. Subsequently, a 20-gauge Quincke spinal needle was advanced into the thecal sac, and clear CSF was noted at the needle hub. Approximately 15 mL of clear CSF was obtained passively, and sent for laboratory analysis. The patient tolerated the procedure well. There were no immediate complications. 1 fluoroscopic spot image obtained. FLUOROSCOPY TIME: 8 seconds DOSE AREA PRODUCT: 218.1 uGy-m2 (microgray-meter squared) FL/FL guided lumbar puncture LP IMPRESSION: Successful L3-4 interlaminar lumbar puncture. 15 mL clear CSF obtained passively. No immediate complication. Electronically signed by: Damon Alanis MD 09/08/2024 03:10 PM EDT Dictated By: Damon Alanis MD Signed By: <Electronically signed by Damon Alanis MD in OV> 09/08/24 1510 DD/ 1410 TD/TT: 09/08/24 1455 [employer] Operator: Procedure Note Donotuseinterpreter, Image - 09/08/2024 [place] [address] Fluoroscopy Report Signed Patient: Danna Taylor#: [id number] : 1990Acct:[id number] Age/Sex: 34 / FADM Date: 09/05/24 Loc: [facility] 483-[address]: Tawny Taylor NP Ordering Physician: Angela Ulloa Date of Service: 09/08/24 Procedure(s): FL guided lumbar puncture LP Accession Number(s): [id number] cc: nAgela Ulloa; Genevieve Gtz MD EXAMINATION: XR LUMBAR PUNCTURE CLINICAL INFORMATION: right side weakness; concern for MS COMPARISON: None available. TECHNIQUE: Informed consent was obtained from the patient. Timeout was performed. Using fluoroscopic guidance, the L3-4 interlaminar space was identified, marked, and the skin prepped and draped in sterile fashion. Skin and subcutaneous tissues were anesthetized with 1% lidocaine. Subsequently, a 20-gauge Quincke spinal needle was advanced into the thecal sac, and clear CSF was noted at the needle hub. Approximately 15 mL of clear CSF was obtained passively, and sent for laboratory analysis. The patient tolerated the procedure well. There were no immediate complications. 1 fluoroscopic spot image obtained. FLUOROSCOPY TIME: 8 seconds DOSE AREA PRODUCT: 218.1 uGy-m2 (microgray-meter squared) FL/FL guided lumbar puncture LP IMPRESSION: Successful L3-4 interlaminar lumbar puncture. 15 mL clear CSF obtained passively. No immediate complication. Electronically signed by: Damon Alanis MD 09/08/2024 03:10 PM EDT RP Dictated By: Damon Alanis MD Signed By: <Electronically signed by Damon Alanis MD in OV> 09/08/24 1510 DD/ 1410 TD/TT: 09/08/24 1455 [employer] Operator: [facility] External Provider IMG FLU OROSCOPY PROCEDURES Final Result * CT Chest w/o Contrast (08/27/2024 10:10 AM EDT) Anatomical Region Laterality Modality Body, Chest Computed Tomogra phy 08/27/2024 10:1 0 AM EDT Narrative 08/27/2024 10:11 AM EDT [place] [address] CT Scan Report Signed Patient: Shereen Taylor MR#: [id number] : 1990 Acct:[id number] Age/Sex: 34 / F ADM Date: 08/27/24 Loc: HO.ED Attending Dr: Ordering Physician: Sylvia Saxena MD Date of Service: 08/27/24 Procedure(s): CT chest wo IV con Accession Number(s): [id number] cc: Sylvia Saxena MD; Genevieve Gtz MD Report Number: [id number]: Total DLP = 431.00 mGy-cm CLINICAL HISTORY: trauma CT chest without contrast Comparison: None provided Findings: Well-positioned tunneled hemodialysis catheter on the right. No cardiomegaly. Moderate atherosclerotic disease of the coronary arteries. No mediastinal adenopathy or pericardial effusion. Patchy multifocal airspace opacity within the right lower lobe. No effusion. No pneumothorax. No acute osseous finding in the chest. Unhealed/partially healed right posterior-lateral 7th rib. Reformatted imaging of the thoracic spine demonstrates no acute fracture. Impression: Right lower lobe pneumonia. Follow-up recommended to ensure resolution. Incompletely healed right posterior lateral 7th rib fracture. Additional incidental findings. This document has been electronically signed by: Umang Hernandez MD on 08/27/2024 10:10:08 Dictated By: Umang Hernandez MD Signed By: <Electronically signed by Umang Hernandez MD in OV> 08/27/24 1011 DD/ 1010 TD/TT: 08/27/24 1010 [employer] Operator: Procedure Note Donotuseinterpreter, Image - 08/27/[address] [address] [address] Scan Report Signed Patient: Danna Taylor#: [id number] : 1990Acct:[id number] Age/Sex: 34 / FADM Date: 08/27/24 Loc: .ED Attending Dr: Ordering Physician: Sylvia Saxena MD Date of Service: 08/27/24 Procedure(s): CT chest wo IV con Accession Number(s): [id number] cc: Sylvia Saxena MD; Genevieve Gtz MD Report Number: [id number]: Total DLP = 431.00 mGy-cm CLINICAL HISTORY: trauma CT chest without contrast Comparison: None provided Findings: Well-positioned tunneled hemodialysis catheter on the right. No cardiomegaly. Moderate atherosclerotic disease of the coronary arteries. No mediastinal adenopathy or pericardial effusion. Patchy multifocal airspace opacity within the right lower lobe. No effusion. No pneumothorax. No acute osseous finding in the chest. Unhealed/partially healed right posterior-lateral 7th rib. Reformatted imaging of the thoracic spine demonstrates no acute fracture. Impression: Right lower lobe pneumonia. Follow-up recommended to ensure resolution. Incompletely healed right posterior lateral 7th rib fracture. Additional incidental findings. This document has been electronically signed by: Umang Hernandez MD on 08/27/2024 10:10:08 Dictated By: Umang Hernandez MD Signed By: <Electronically signed by Umang Hernandez MD in OV> 08/27/24 1011 DD/ 1010 TD/TT: 08/27/24 1010 [employer] Operator: [facility] External Provider IMG CT PROCEDURES Final Result * CT Abdomen Pelvis w/o Contrast (08/27/2024 10:05 AM EDT) Anatomical Region Laterality Modality Body, Pelvis, Abdomen Computed T omography 08/27/2024 10:0 5 AM EDT Narrative 08/27/2024 10:06 AM EDT [address] [address] [address] Scan Report Signed Patient: Shereen Taylor MR#: [id number] : 1990 Acct:[id number] Age/Sex: 34 / F ADM Date: 08/27/24 Loc: HO.ED Attending Dr: Ordering Physician: Sylvia Saxena MD Date of Service: 08/27/24 Procedure(s): CT abdomen pelvis wo IV con Accession Number(s): [id number] cc: Sylvia Saxena MD; Genevieve Gtz MD Report Number: [id number]: Total DLP = 932.00 mGy-cm CLINICAL HISTORY: Dialysis patient status post fall complaining of --- Additional Notes or Special Instructions: diffuse pain CT abdomen and pelvis without contrast Comparison: None provided Findings: No consolidation or effusion. The unenhanced liver, spleen, adrenal glands and pancreas demonstrate no acute process. The gallbladder is absent. Kidneys demonstrate vascular calcification. No obstructive uropathy. Mild fecal retention within the colon. No obstruction, free air, free fluid, abscess or adenopathy. Uterus and adnexa are within expected limits. The bony pelvis is intact. No proximal femoral fracture or sacral fracture. Evaluation of the lumbar spine demonstrates mild degenerative changes. Impression: Several chronic findings. No definite acute process. This document has been electronically signed by: Umang Hernandez MD on 08/27/2024 10:05:19 Dictated By: Umang Hernandez MD Signed By: <Electronically signed by Umang Hernandez MD in OV> 08/27/24 1006 DD/ 1005 TD/TT: 08/27/24 1005 [employer] Operator: Procedure Note Donotuseinterpreter, Image - 08/27/[address] [address] [address] Scan Report Signed Patient: Danna Taylor#: [id number] : 1990Acct:[id number] Age/Sex: 34 / FADM Date: 08/27/24 Loc: HO.ED Attending Dr: Ordering Physician: Sylvia Saxena MD Date of Service: 08/27/24 Procedure(s): CT abdomen pelvis wo IV con Accession Number(s): [id number] cc: Sylvia Saxena MD; Genevieve Gtz MD Report Number: [id number]: Total DLP = 932.00 mGy-cm CLINICAL HISTORY: Dialysis patient status post fall complaining of ---Additional Notes or Special Instructions: diffuse pain CT abdomen and pelvis without contrast Comparison: None provided Findings: No consolidation or effusion. The unenhanced liver, spleen, adrenal glands and pancreas demonstrate no acute process. The gallbladder is absent. Kidneys demonstrate vascular calcification. No obstructive uropathy. Mild fecal retention within the colon. No obstruction, free air, free fluid, abscess or adenopathy. Uterus and adnexa are within expected limits. The bony pelvis is intact. No proximal femoral fracture or sacralfracture. Evaluation of the lumbar spine demonstrates mild degenerative changes. Impression: Several chronic findings. No definite acute process. This document has been electronically signed by: Umang Hernandez MD on 08/27/2024 10:05:19 Dictated By: Umang Hernandez MD Signed By: <Electronically signed by Umang Hernandez MD in OV> 08/27/24 1006 DD/ 1005 TD/TT: 08/27/24 1005 [employer] Operator: [facility] External Provider IMG CT PROCEDURES Final Result * CT Head w/o Contrast (08/27/2024 9:58 AM EDT) Anatomical Region Laterality Modality Head, Neck Computed Tomogra phy 08/27/2024 9:58 AM EDT Narrative 08/27/2024 9:59 AM EDT [address] [address] [address] Scan Report Signed Patient: Shereen Taylor MR#: [id number] : 1990 Acct:[id number] Age/Sex: 34 / F ADM Date: 08/27/24 Loc: HO.ED Attending Dr: Ordering Physician: Sylvia Saxena MD Date of Service: 08/27/24 Procedure(s): CT head/brain wo IV con Accession Number(s): [id number] cc: Sylvia Saxena MD; Genevieve Gtz MD Report Number: [id number]: Total DLP = 700.00 mGy-cm CLINICAL HISTORY: head injury CT head without contrast Comparison: None provided Findings: No intra-axial mass, midline shift, hydrocephalus, or acute hemorrhage. No significant atrophy-like change or white matter disease. There is no sinus or mastoid fluid. Right-sided phthsis bulbi noted. There is no acute fracture. IMPRESSION: 1. No acute intracranial findings. This document has been electronically signed by: Umang Hernandez MD on 08/27/2024 09:58:08 Dictated By: Umang Hernandez MD Signed By: <Electronically signed by Umang Hernandez MD in OV> 08/27/24958 DD/ 7 TD/TT: 08/27/24957 [employer] Operator: Procedure Note Donotuseinterpreter, Image - 08/27/[address] [address] [address] Scan Report Signed Patient: Christian TaylorR#: [id number] : 1990Acct:[id number] Age/Sex: 34 / FADM Date: 08/27/24 Loc: HO.ED Attending Dr: Ordering Physician: Sylvia Saxena MD Date of Service: 08/27/24 Procedure(s): CT head/brain wo IV con Accession Number(s): [id number] cc: Sylvia Saxena MD; Genevieve Gtz MD Report Number: [id number]: Total DLP = 700.00 mGy-cm CLINICAL HISTORY: head injury CT head without contrast Comparison: None provided Findings: No intra-axial mass, midline shift, hydrocephalus, or acute hemorrhage. No significant atrophy-like change or white matter disease. There is no sinus or mastoid fluid. Right-sided phthsis bulbi noted. There is no acute fracture. IMPRESSION: 1. No acute intracranial findings. This document has been electronically signed by: Umang Hernandez MD on 08/27/2024 09:58:08 Dictated By: Umang Hernandez MD Signed By: <Electronically signed by Umang Hernandez MD in OV> 08/27/2459 DD/ 7 TD/TT: 08/27/24957 [employer] Operator: [facility] External Provider IMG CT PROCEDURES Final Result * CT Cervical Spine w/o Contrast (08/27/2024 9:55 AM EDT) Anatomical Region Laterality Modality Spine, C-spine Computed Tomogra phy 08/27/2024 9:55 AM EDT Narrative 08/27/2024 9:57 AM EDT [place] [address] CT Scan Report Signed Patient: Shereen Taylor MR#: [id number] : 1990 Acct:[id number] Age/Sex: 34 / F ADM Date: 08/27/24 Loc: HO.ED Attending Dr: Ordering Physician: Sylvia Saxena MD Date of Service: 08/27/24 Procedure(s): CT cervical spine wo IV con Accession Number(s): [id number] cc: Sylvia Saxena MD; Genevieve Gtz MD Report Number: [id number]: Total DLP = 376.00 mGy-cm CLINICAL HISTORY: fall, pain CT cervical spine without contrast Comparison: None provided Findings: Normal vertebral body alignment. No significant degenerative change. No acute fractures or dislocations. Visualized intracranial contents are unremarkable. No cervical fluid collections or masses. Lung apices are clear. IMPRESSION: No acute findings. This document has been electronically signed by: Umang Hernandez MD on 08/27/2024 09:55:56 Dictated By: mUang Hernandez MD Signed By: <Electronically signed by Umang Hernandez MD in OV> 08/27/24955 DD/ 4 TD/TT: 08/27/24954 [employer] Operator: Procedure Note Donotuseinterpreter, Image - 08/27/[address] [place] [address] [address] Scan Report Signed Patient: Danna Taylor#: [id number] : 1990Acct:[id number] Age/Sex: 34 / FADM Date: 08/27/24 Loc: HO.ED Attending Dr: Ordering Physician: Sylvia Saxena MD Date of Service: 08/27/24 Procedure(s): CT cervical spine wo IV con Accession Number(s): [id number] cc: Sylvia Saxena MD; Genevieve Gtz MD Report Number: [id number]: Total DLP = 376.00 mGy-cm CLINICAL HISTORY: fall, pain CT cervical spine without contrast Comparison: None provided Findings: Normal vertebral body alignment. No significant degenerative change. No acute fractures or dislocations. Visualized intracranial contents are unremarkable. No cervical fluid collections or masses. Lung apices are clear. IMPRESSION: No acute findings. This document has been electronically signed by: Umang Hernandez MD on 08/27/2024 09:55:56 Dictated By: Umang Hernandez MD Signed By: <Electronically signed by Umang Hernandez MD in OV> 08/27/24955 DD/ 4 TD/TT: 08/27/24954 [employer] Operator: [facility] External Provider IMG CT PROCEDURES Final Result * Glucose, Whole Blood (08/27/2024 9:10 AM EDT) Only the most recent of3 resultswithin the time period is included. Glucose, Whole Blood 101 60 - 115 mg/dL [facility] Comment:METER #: [id number] 08/27/2024 9:10 AM EDT 08/27/2024 9:13 AM EDT us Generic External Data Provider LAB BLOOD ORDERAB LES Final Result [facility] [address] [place] [phone] * MRA Head w/ Contrast (08/21/2024 6:42 PM EDT) Anatomical Region Laterality Modality Head, Neck Magnetic Resonan ce 08/21/2024 6:42 PM EDT Narrative 08/21/2024 6:45 PM EDT [address] [address] Magnetic Resonance Report Signed Patient: Shereen Taylor MR#: [id number] : 1990 Acct:[id number] Age/Sex: 34 / F ADM Date: 08/18/24 Loc: [facility] 459-[address]: Angela SIGALA Ordering Physician: Angela Ulloa Date of Service: 08/21/24 Procedure(s): MR head/brain w con Accession Number(s): [id number] cc: Angela Ulloa; Genevieve Gtz MD CLINICAL HISTORY: eval for active MS lesions MR Brain with gadolinium Comparison: MR/REG/NE/SR - MR HEAD/BRAIN WO CON - 08/20/24 12:37 EDT Findings: There is mild enhancement within the left thalamic lesion, measuring 7 mm transverse. Intracranial enhancement is otherwise within normal limits. IMPRESSION: Mild enhancement within the left thalamic focus, suggestive of active multiple sclerosis. This document has been electronically signed by: Juan Mckeon MD on 08/21/2024 18:42:53 Dictated By: Juan Mckeon MD Signed By: <Electronically signed by Juan Mckeon MD in OV> 08/21/241842 DD/ 41 TD/TT: 08/21/241841 [employer] Operator: Procedure Note Donotuseinterpreter, Image - 08/21/[address] [address] Magnetic Resonance Report Signed Patient: Christian TaylorR#: [id number] : 1990Acct:[id number] Age/Sex: 34 / FADM Date: 08/18/24 Loc: [facility] 459-[address]: Angela SIGALA Ordering Physician: Angela Ulloa Date of Service: 08/21/24 Procedure(s): MR head/brain w con Accession Number(s): [id number] cc: Angela Ulloa; Genevieve Gtz MD CLINICAL HISTORY: eval for active MS lesions MR Brain with gadolinium Comparison: MR/REG/NE/SR - MR HEAD/BRAIN WO CON - 08/20/24 12:37 EDT Findings: There is mild enhancement within the left thalamic lesion, measuring 7 mm transverse. Intracranial enhancement is otherwise within normal limits. IMPRESSION: Mild enhancement within the left thalamic focus, suggestive of active multiple sclerosis. This document has been electronically signed by: Juan Mckeon MD on 08/21/2024 18:42:53 Dictated By: Juan Mckeon MD Signed By: <Electronically signed by Juan Mckeon MD in OV> 08/21/241842 DD/ 41 TD/TT: 08/21/241841 [employer] Operator: us [facility] External Provider IMG MRI PROCEDURES Final Result * MR Brain w/o Contrast (08/20/2024 12:15 PM EDT) Anatomical Region Laterality Modality Brain Magnetic Resonan ce 08/20/2024 12:1 5 PM EDT Narrative 08/20/2024 1:37 PM EDT [address] [address] Magnetic Resonance Report Signed Patient: Shereen Taylor MR#: [id number] : 1990 Acct:[id number] Age/Sex: 34 / F ADM Date: 08/18/24 Loc: [facility] 459-[address]: Cheyenne Sears MD Ordering Physician: Tawny Taylor NP Date of Service: 08/20/24 Procedure(s): MR head/brain wo con Accession Number(s): [id number] cc: Genevivee Gtz MD; Tawny Taylor NP EXAMINATION: MR BRAIN WITHOUT CONTRAST CLINICAL INFORMATION: Slurred speech. 34-year-old female. COMPARISON: No prior MRI. Numerous prior head CTs, most recently 08/18/2024. TECHNIQUE: MRI of the brain was obtained using routine sequences without contrast. Examination performed on a 1.5 Tena Siemens high-field unit. FINDINGS: There is no diffusion restriction. There is no intracranial hemorrhage, acute infarction, mass effect, or edema. Ventricles, sulci, and cisterns are normal in size and configuration for patient age. No shift of midline. No abnormal hemosiderin deposition is identified. There are numerous scattered punctate and minimally confluent foci of white matter T2 hyperintensity in the periventricular, subcortical, and hemispheric deep white matter. There are both pericallosal and callosal marginal lesions. Many of these have a perpendicular orientation with the lateral ventricles. There is diffuse hyperintensity at the callosal septal interface. There is an oval T2 hyperintense signal abnormality in the left anterior thalamus measuring 0.9 x 0.7 x 1.0 cm (AP, TRV, CC). There is T2 hyperintensity in the central camilla, right inferior camilla, and right superior medulla. There is either an old lacunar type infarct or a T1 hypointense chronic demyelinating plaque in the right cerebellar hemisphere measuring approximately 1.5 x 0.8 cm. Midline structures appear normally formed. The pituitary gland appears normal. Posterior fossa structures appear normal. Cerebellar tonsils are appropriately located. Major flow voids are preserved within the skull base. There is abnormal T2 signal in both optic nerves. The right globe is shrunken and abnormal in signal. There is a probable left retinal detachment present. Mild mucosal thickening in the dependent right maxillary sinus. Paranasal sinuses are otherwise clear bilaterally. There is a right mastoid tip effusion. The mastoids and tympanic cavities are otherwise normally aerated. Extracranial soft tissues demonstrate no abnormalities. No suspicious bone marrow changes are evident. Atlantoaxial joint is normal. MR/MR head/brain wo con IMPRESSION: 1. No evidence of intracranial hemorrhage, acute infarction, mass effect, or edema. 2. Findings highly suspicious for inflammatory demyelinating disease (multiple sclerosis), with a likely active demyelinating plaque in the left anterior thalamus measuring 0.9 x 0.7 x 1.0 cm. There is involvement of the central camilla, right cerebellum, and right superior medulla. Refer to the body of the report for details. 3. Abnormal signal in both optic nerves. 4. There appears to be a retinal detachment on the left. The right globe is shrunken and abnormal in signal. Electronically signed by: Damon Alanis MD 08/20/2024 01:31 PM EDT RP Dictated By: Damon Alanis MD Signed By: <Electronically signed by Damon Alanis MD in OV> 08/20/24 1331 DD/ 1215 TD/TT: 08/20/24 1300 [employer] Operator: Procedure Note Donotuseinterpreter, Image - 08/20/2024 [place] [address] Magnetic Resonance Report Signed Patient: Danna Taylor#: [id number] : 1990Acct:[id number] Age/Sex: 34 / FADM Date: 08/18/24 Loc: [facility] 459-[address]: Cheyenne Sears MD Ordering Physician: Tawny Taylor NP Date of Service: 08/20/24 Procedure(s): MR head/brain wo con Accession Number(s): [id number] cc: Genevieve Gtz MD; Tawny Taylor NP EXAMINATION: MR BRAIN WITHOUT CONTRAST CLINICAL INFORMATION: Slurred speech. 34-year-old female. COMPARISON: No prior MRI. Numerous prior head CTs, most recently 08/18/2024. TECHNIQUE: MRI of the brain was obtained using routine sequences without contrast. Examination performed on a 1.5 Tena Siemens high-field unit. FINDINGS: There is no diffusion restriction. There is no intracranial hemorrhage, acute infarction, mass effect, or edema. Ventricles, sulci, and cisterns are normal in size and configuration for patient age. No shift of midline. No abnormal hemosiderin deposition is identified. There are numerous scattered punctate and minimally confluent foci of white matter T2 hyperintensity in the periventricular, subcortical, and hemispheric deep white matter. There are both pericallosal and callosal marginal lesions. Many of these have a perpendicular orientation with the lateral ventricles. There is diffuse hyperintensity at the callosal septal interface. There is an oval T2 hyperintense signal abnormality in the left anterior thalamus measuring 0.9 x 0.7 x 1.0 cm (AP, TRV, CC). There is T2 hyperintensity in the central camilla, right inferior camilla, and right superior medulla. There is either an old lacunar type infarct or a T1 hypointense chronic demyelinating plaque in the right cerebellar hemisphere measuring approximately 1.5 x 0.8 cm. Midline structures appear normally formed. The pituitary gland appears normal. Posterior fossa structures appear normal. Cerebellar tonsils are appropriately located. Major flow voids are preserved within the skull base. There is abnormal T2 signal in both optic nerves. The right globe is shrunken and abnormal in signal. There is a probable left retinal detachment present. Mild mucosal thickening in the dependent right maxillary sinus. Paranasal sinuses are otherwise clear bilaterally. There is a right mastoid tip effusion. The mastoids and tympanic cavities are otherwise normally aerated. Extracranial soft tissues demonstrate no abnormalities. No suspicious bone marrow changes are evident. Atlantoaxial joint is normal. MR/MR head/brain wo con IMPRESSION: 1. No evidence of intracranial hemorrhage, acute infarction, mass effect, or edema. 2. Findings highly suspicious for inflammatory demyelinating disease (multiple sclerosis), with a likely active demyelinating plaque in the left anterior thalamus measuring 0.9 x 0.7 x 1.0 cm. There is involvement of the central camilla, right cerebellum, and right superior medulla. Refer to the body of the report for details. 3. Abnormal signal in both optic nerves. 4. There appears to be a retinal detachment on the left. The right globe is shrunken and abnormal in signal. Electronically signed by: Damon Alanis MD 08/20/2024 01:31 PM EDT Dictated By: Damon Alanis MD Signed By: <Electronically signed by Damon Alanis MD in OV> 08/20/24 1331 DD/ 1215 TD/TT: 08/20/24 1300 [employer] Cookie Machine Operator: [facility] External Provider IMG MRI PROCEDURES Final Result * SARS-CoV-2 RNA, Influenza A/B, and RSV RNA, Ql NAAT (07/31/2024 10:42 AM EDT) Influenza A PCR NEGATIVE Negative [facility] Influenza B PCR NEGATIVE Negative [facility] Resp Syncy Virus RNA Qual PCR NEGATIVE Negative [facility] SARS COV2 PCR NEGATIVE Negative [facility] Comment:All test results mus t be correlated with clinical findings.Negative results do not preclude SARS-CoV2, influenza Avirus, influenza B virus and/or RSV infectionand should not be used as the sole basis for treatment orother patient management decisions. Negative results must becombined with clinical observations, patient history, andepidemiological information.This test has not been evaluated for monitoring treatment ofinfection.This test has been authorized by the FDA under an EmergencyUse Authorization (EUA) for use by authorized laboratories.Testing performed on the [employer] GeneXpert utilizingreal-time RT-PCR.All SARS CoV2 and positive influenza A/B results arereported to [facility]. 07/31/2024 10:4 2 AM EDT 07/31/2024 10:50 AM EDT Generic External Data Provider LAB MICROBIOLOGY - GENERAL ORDERABLES Final Result [facility] [address] [place] [address] [phone] * XR Chest 1 View (07/31/2024 10:34 AM EDT) Anatomical Region Laterality Modality Chest Radiographic Vandana ging 07/31/2024 10:3 4 AM EDT Narrative 07/31/2024 11:58 AM EDT [address] [address] XRay Report Signed Patient: Shereen Taylor MR#: [id number] : 1990 Acct:[id number] Age/Sex: 34 / F ADM Date: 07/31/24 Loc: HO.ED Attending Dr: Ordering Physician: Kasia Ramirez Date of Service: 07/31/24 Procedure(s): XR chest 1V Accession Number(s): [id number] cc: [facility]; Kasia Ramirez EXAMINATION: XR CHEST CLINICAL INFORMATION: hypoxia COMPARISON: 07/11/2024. TECHNIQUE: Frontal view of the chest was obtained. FINDINGS: There is a right IJ central venous catheter/dialysis catheter with tip in the right atrium. There is cardiomegaly. Mediastinal and hilar contours appear normal. The lungs appear clear bilaterally. No pneumothorax or effusion. No focal osseous or soft tissue abnormality. XR/XR chest 1V IMPRESSION: 1. Right IJ central venous catheter in stable position. 2. Cardiomegaly. 3. No active pulmonary disease. Electronically signed by: Damon Alanis MD 07/31/2024 11:56 AM EDT RP Dictated By: Damon Alanis MD Signed By: <Electronically signed by Damon Alanis MD in OV> 07/31/24 1156 DD/ 1034 TD/TT: 07/31/24 1144 [employer] Machine Operator: Procedure Note Donotuseinterpreter, Image - 07/31/2024 [place] [address] XRay Report Signed Patient: Danna Taylor#: [id number] : 1990Acct:[id number] Age/Sex: 34 / FADM Date: 07/31/24 Loc: HO.ED Attending Dr: Ordering Physician: Kasia Ramirez Date of Service: 07/31/24 Procedure(s): XR chest 1V Accession Number(s): [id number] cc: [facility]; Kasia Ramirez EXAMINATION: XR CHEST CLINICAL INFORMATION: hypoxia COMPARISON: 07/11/2024. TECHNIQUE: Frontal view of the chest was obtained. FINDINGS: There is a right IJ central venous catheter/dialysis catheter with tip in the right atrium. There is cardiomegaly. Mediastinal and hilar contours appear normal. The lungs appear clear bilaterally. No pneumothorax or effusion. No focal osseous or soft tissue abnormality. XR/XR chest 1V IMPRESSION: 1. Right IJ central venous catheter in stable position. 2. Cardiomegaly. 3. No active pulmonary disease. Electronically signed by: Damon Alanis MD 07/31/2024 11:56 AM EDT Dictated By: Damon Alanis MD Signed By: <Electronically signed by Damon Alanis MD in OV> 07/31/24 1156 DD/ 1034 TD/TT: 07/31/24 1144 [employer] Cookie Machine Operator: [facility] External Provider IMG XR PROCEDURES Edited Result - Final * Hepatitis C Antibody with Reflex to HCV, RNA, Quantitative, Real-Time PCR (03/07/2024 9:45 AM EST) Hepatitis C Antibody Nonreactive Nonreactive [facility] Comment:Antibodies to HCV no t detected; does not exclude early acuteHCV infection. Blood Venous blood specimen / Unknown 03/07/2024 9:45 AM EST 03/07/2024 11:34 AM EST Genevieve Casillas MD LAB BLOOD ORDERAB LES Final Result [facility] [address] [place] [phone] * HIV-1/2 Antigen and Antibodies, Fourth Generation, with Reflexes (03/07/2024 9:45 AM EST) HIV AB/AG Nonreactive Nonreactive [facility] Comment:HIV-1 p24 Ag and/or HIV-1/HIV-2 Ab not detected.A test result that is nonreactive does not exclude thepossibility of exposure to or infection with HIV-1 and/orHIV-2. Nonreactive results in this assay for individualswith prior exposure to HIV-1 and/or HIV-2 may be due toantigen and antibody levels that are below the limit ofdetection of this assay.The [email or web address] HIV Ag/Ab Combo assay result andsupplemental assay results should be interpreted inconjunction with the patient's clinical presentation,history and other laboratory results. If the results areinconsistent with clinical evidence, additional testing issuggested to confirm the result. Blood Venous blood specimen / Unknown 03/07/2024 9:45 AM EST 03/07/2024 11:34 AM EST Genevieve Casillas MD LAB BLOOD ORDERAB LES Final Result Performing Organization Address [facility] Co de Phone Number [facility] [address] [place] [phone] * Hemoglobin A1c (03/07/2024 9:45 AM EST) Hemoglobin A1c 5.7 <6.0 % [facility] Comment:Hemoglobin A1C Refer ence Range Adults: 4.8 - 6.0 % Non diabetic: < 6.0 % Goal: < 7.0 %Additional Action Suggested: > 8.0 %Note: Hemoglobin A1c results are invalid for patients with abnormal amounts of HbF. Blood transfusions may impact the HbA1c concentration in the patient sample. Estimated Average Glucose 117 mg/dL [facility] Comment:eAG = Estimated ave rage glucose which is %A1C expressed asaverage glucose, using the formula of the S3O-HazabgrWwraezw Glucose study (ADAG), Diabetes Care, Vol.31,#8,Sep. 2007 Blood Venous blood specimen / Unknown 03/07/2024 9:45 AM EST 03/07/2024 11:34 AM EST us Genevieve Casillas MD LAB BLOOD ORDERAB LES Final Result Performing Organization Address [facility] Co de Phone Number [facility] [address] [place] [address] [phone] * (ABNORMAL) Lipid Panel, Standard (03/07/2024 9:45 AM EST) Triglycerides 36 <150 mg/dL [facility] Comment:Desirable Triglyceri de: less than 150 mg/dLBorderline High Triglyceride 150-199 mg/dLHigh Triglyceride: 200-499 mg/dLVery High Triglyceride: greater than or equal to 5OO mg/dL Cholesterol 107 <200 mg/dL [facility] Comment:Desirable Cholestero l: less than 200 mg/dLBorderline High Cholesterol: 200-239 mg/dLHigh Cholesterol: greater than 239 mg/dL LDL Cholesterol Calculated 65 <100 mg/dL [facility] Comment:Desirable LDL: less than 100 mg/dLNear Optimal/Above Optimal LDL: 110- 129 mg/dLBorderline High LDL: 130-159 mg/dLHigh LDL: 160-189 mg/dLVery High LDL: greater than or equal to 190 mg/dL HDL Cholesterol 35(L) >40 mg/dL [facility] Comment:Desirable HDL: great er than 40 mg/dL Note: This HDL assay may give artificially low results in patients with liver disease. Blood Venous blood specimen / Unknown 03/07/2024 9:45 AM EST 03/07/2024 11:34 AM EST us Genevieve Casillas MD LAB BLOOD ORDERAB LES Final Result [facility] [address] [place] [phone] from Last 3 Months or Most Recently Relevant to Health Maintenance Insurance [employer] < 65 [place] [id number] Care Teams Intelligence Applications Relationship Specialty Start Date End Date Genevieve Gtz MD [address] [place] [phone] PCP - General Internal Medicine 10/12/22
--- OUTSIDE RECORDS SUMMARY | 2024-10-29 11:39 | XMS_ITS | Encounter Summary ---
Author Organization [employer] Address [address] [facility] 7t [place] [address] Care Team Providers Care Mining Analyst Name Role Phone Genevieve Gtz MD Primary Care Pro vider Reason for Visit * Reason Onset Date Comments Med Refill 06/20/2024 Encounter Details Date Type Department Care Team ([facility] Contact Info) Description 06/20/2024 Telephone [facility] MEDICINE [address] [place] [address] Genevieve Gtz MD [address] [place], [place] [phone] Med Refill Social History Tobacco Use Types [...] immediate release tablet To be sent to: [facility]/pharmacy #[id number] [place] [address] documented in this encounter Plan of Treatment Upcoming Encounters Date Type Department Care Team (Late st Contact Info) Description 11/19/2024 3:15 PM EDT Clinical Support [facility] [address] [place] [phone] Paola Thurston RN [address] [place] [address] documented as of this encounter Goals Goal [...] documented as of this encounter Care Teams Mining Analyst Relationship Specialty Start Date End Date Genevieve Gtz MD [address] [place] [phone] PCP - General Internal Medicine 10/12/22 documented as of this encounter
--- OUTSIDE RECORDS SUMMARY | 2024-10-29 11:39 | XMS_ITS | Encounter Summary ---
Author Organization [employer] Address [address] [facility] 7t [place] [address] Care Team Providers Care Mold Technician Name Role Phone Genevieve Gtz MD Primary Care Pro vider Reason for Visit * Reason Onset Date Comments Call Back Request 06/15/2023 Encounter Details Date Type Department Care Team ([facility] Contact Info) Description 06/15/2023 Telephone [facility] MEDICINE [address] [place], [place] [phone] Genevieve Gtz MD [address] [place], [place] [phone] Call Back Request Social History Tobacco Use [...] pt requesting a call back in regards STRESS ANALYST medication. documented in this encounter Plan of Treatment Upcoming Encounters Date Type Department Care Team ([facility] st Contact Info) Description 11/19/2024 3:15 PM EDT Clinical Support [facility] MED & PEDS [address] [place] [address] Paola Thurston, KIRIT [address] [place] [address] documented as of this encounter Goals Goal [...] documented as of this encounter Care Teams Mold Technician Relationship Specialty Start Date End Date Genevieve Gtz MD [address] [place] [phone] PCP - General Internal Medicine 10/12/22 documented as of this encounter
--- OUTSIDE RECORDS SUMMARY | 2024-10-29 11:39 | XMS_ITS | Encounter Summary ---
Author Organization [employer] Address [address] [place] [address] 7[address] [place] [address] Care Team Providers Care Key Operator Name Role Phone Genevieve Gtz MD Primary Care Pro vider Reason for Visit * Reason Onset Date Comments Med Refill 10/26/2022 Encounter Details Date Type Department Care Team ([facility] st Contact Info) Description 10/26/2022 Telephone [facility] MEDICINE [address] [place], [place] [phone] Genevieve Gtz MD [address] [place], [place] [phone] Med Refill Social History Tobacco Use Types [...] medication oxycodone 5 mg. Please send to [facility]/pharmacy #[id number] - [place] - [address] Cool documented in this encounter Plan of Treatment Upcoming Encounters Date Type Department Care Team (Late st Contact Info) Description 11/19/2024 3:15 PM EDT Clinical Support [facility] MED & PEDS [address] [place] [address] Paola Thruston, RN [address] [place] [address] documented as of this encounter Visit Diagnoses Not on filedocumented in this encounter Additional Health Concerns Assessment Noted Time PHQ-9 Depression Total Score: 0 10/13/19 2:37 PM EDT documented as of this encounter Care Teams Key Operator Relationship Specialty Start Date End Date Genevieve Gtz MD [address] [place] [phone] PCP - General Internal Medicine 10/12/22 documented as of this encounter
--- OUTSIDE RECORDS SUMMARY | 2024-10-29 11:39 | XMS_ITS | Encounter Summary ---
Author Organization [employer] Address [address] [facility] 7t [place] [address] Care Team Providers Care Traffic Worker Name Role Phone Genevieve Gtz MD Primary Care Pro vider Reason for Visit * Reason Onset Date Comments Med Refill 08/22/2024 Encounter Details Date Type Department Care Team ([facility] Contact Info) Description 08/22/2024 Telephone [facility] MEDICINE [address] [place] [address] Genevieve Gtz MD [address] [place], [place] [phone] Med Refill Social History Tobacco Use Types [...] encounter Miscellaneous Notes * Telephone Encounter - Colten Mullen - 08/22/2024 10:47 AM EDT TC from pt requesting medication refill. Medications needing refill : oxyCODONE (Roxicodone) 5 MG immediate release tablet To be sent to: [facility]/pharmacy #[id number] [place] [address] documented in this encounter Plan of Treatment Upcoming Encounters Date Type Department Care Team (Late st Contact Info) Description 11/19/2024 3:15 PM EDT Clinical Support [facility] MED & PEDS [address] [place] [phone] Paola Thurston RN [address] [place] [phone] documented as of this encounter Goals Goal Patient Goal Type Associated Problems Recent Progress Patient-Stated? Author Blood Pressure < 140/90 Blood Pressure 129/75(2024 9:08 AM EST) Jaime Vasquez Hemoglobin A1c < 8 Result Component 5.7( 9:45 AM EST) Jaime Vasquez documented as of this encounter Visit Diagnoses Not on filedocumented in this encounter Additional Health Concerns Assessment Noted Time PHQ-9 Depression Total Score: 0 10/23/19 2:23 PM EDT documented as of this encounter Care Teams Traffic Worker Relationship Specialty Start Date End Date Genevieve Gtz MD [address] [place] [phone] PCP - General Internal Medicine 10/12/22 documented as of this encounter
--- OUTSIDE RECORDS SUMMARY | 2024-10-29 11:39 | XMS_ITS | Encounter Summary ---
Author Organization [employer] Address [address] [facility] 7t [place] [address] Care Team Providers Care Networking Engineer Name Role Phone Genevieve Gtz MD Primary Care Pro vider Reason for Visit * Reason Onset Date Comments Med Refill 10/23/2024 Encounter Details Date Type Department Care Team ([facility] Contact Info) Description 10/23/2024 Telephone [facility] MEDICINE 230 [place] [address] Genevieve Gtz MD 230 [place], [place] [phone] Med Refill Social History Tobacco Use Types [...] encounter Miscellaneous Notes * Telephone Encounter - Francie Smith - 10/24/2024 12:18 PM EDT Tc from pt retuning call Contact pt at [phone] * Telephone Encounter - Paola Thurston RN - 10/23/2024 10:24 AM EDT Pt requesting refill of Oxycodone 5mg. No show to FISH CUTTING MACHINE OPERATOR appt 08/06/24. Multiple TC to pt to r/s, no answer, no c/b. Also no showed to appt with you 09/26/24. Please advise. * Telephone Encounter - Colten Mullen - 10/23/2024 10:07 AM EDT TC from pt requesting medication refill. Medications needing refill : oxyCODONE (Roxicodone) 5 MG immediate release tablet To be sent to: [facility]/pharmacy #[id number] documented in this encounter Plan of Treatment Upcoming Encounters Date Type Department Care Team (Late st Contact Info) Description 11/19/2024 3:15 PM EDT Clinical Support [facility] CHC MED & PEDS [address] [place] [address] Paola Thurston, KIRIT [address] [place], [place] documented as of this encounter Goals Goal [...] documented as of this encounter Care Teams Networking Engineer Relationship Specialty Start Date End Date Genevieve Gtz MD [address] [place] [address] PCP - General Internal Medicine 10/12/22 documented as of this encounter
--- OUTSIDE RECORDS SUMMARY | 2024-10-29 11:39 | XMS_ITS | Encounter Summary ---
Author Organization [employer] Address 75 [facility] 7t [place] [address] Care Team Providers Care Senior Net Software Developer Name Role Phone Genevieve Gtz MD Primary Care Pro vider Reason for Visit * Reason Onset Date Comments Med Refill 01/08/2023 Encounter Details Date Type Department Care Team ([facility] Contact Info) Description 01/08/2023 Telephone [facility] MEDICINE 230 [place], [place] [phone] Genevieve Gtz MD 230 [place], [place] [phone] Med Refill Social History Tobacco Use Types [...] Description 11/19/2024 3:15 PM EDT Clinical Support [facility] MED & PEDS 505 [place] [address] Paola Thurston, KIRIT 505 [place] [address] documented as of this encounter Visit Diagnoses Not on filedocumented in this encounter Additional Health Concerns Assessment Noted Time PHQ-9 Depression Total Score: 0 10/13/19 2:37 PM EDT documented as of this encounter Care Teams Senior Net Software Developer Relationship Specialty Start Date End Date Genevieve Gtz MD [address] [place] [address] PCP - General Internal Medicine 10/12/22 documented as of this encounter
--- OUTSIDE RECORDS SUMMARY | 2024-10-29 11:39 | XMS_ITS | Encounter Summary ---
Author Organization [employer] [facility] Address [address] [place] [address] 7t [place] [address] Care Team Providers Care Hearing Therapy Director Name Role Phone Carolina Hsu Primary Care Provider Genevieve Wilson MD Primary Care Pro vider Encounter Details Date Type Department Care Team (Late Contact Info) Description 09/11/2022 Abstract [facility] MEDICINE 230 [place], [place] [phone] Carolina Hsu FNP Social History Tobacco Use Types Packs/Day Years [...] Department Care Team (Late Contact Info) Description 11/19/2024 3:15 PM EDT Clinical Support [facility] CHC MED & PEDS 505 [place] [address] Paola Thurston RN 505 [place] [address] documented as of this encounter Visit Diagnoses Not on filedocumented in this encounter Care Teams Hearing Therapy Director Relationship Specialty Start Date End Date Carolina Hsu FNP PCP - General Family Medicine 01/16/22 10/11/22 Genevieve Gtz MD 230 [place] [address] PCP - General Internal Medicine 10/12/22 documented as of this encounter
--- OUTSIDE RECORDS SUMMARY | 2024-10-29 11:39 | XMS_ITS | Encounter Summary ---
Author Organization [employer] [facility] Address [address] [place] [address] 7t [place] [address] Care Team Providers Care Log Check Scaler Name Role Phone Carolina Hsu Primary Care Provider Genevieve Wilson MD Primary Care Pro vider Encounter Details Date Type Department Care Team (Late Contact Info) Description 09/11/2022 Abstract [facility] MEDICINE [address] [employer], [place] [phone] Carolina Hsu FNP Social History Tobacco Use [...] Description 11/19/2024 3:15 PM EDT Clinical Support [facility] CHC MED & PEDS 505 [place] [address] Paola Thurston RN 505 [place] [address] documented as of this encounter Visit Diagnoses Not on filedocumented in this encounter Care Teams Log Check Scaler Relationship Specialty Start Date End Date Carolina Hsu FNP PCP - General Family Medicine 01/16/22 10/11/22 Genevieve Gtz MD 230 [place] [address] PCP - General Internal Medicine 10/12/22 documented as of this encounter
--- OUTSIDE RECORDS SUMMARY | 2024-10-29 11:39 | XMS_ITS | Encounter Summary ---
Author Organization [employer] [facility] Address [address] [place] [address] 7t [place] [address] Care Team Providers Care Tube Fitter Name Role Phone Carolina Hsu Primary Care Provider Genevieve Wilson MD Primary Care Pro vider Encounter Details Date Type Department Care Team (Late Contact Info) Description 09/11/2022 Abstract [facility] MEDICINE 230 [place], [place] [phone] Carolina Hsu FNP Social History Tobacco Use [...] Description 11/19/2024 3:15 PM EDT Clinical Support [facility] CHC MED & PEDS 505 [place] [address] Paola Thurston RN 505 [place] [address] documented as of this encounter Visit Diagnoses Not on filedocumented in this encounter Care Teams Tube Fitter Relationship Specialty Start Date End Date Carolina Hsu FNP PCP - General Family Medicine 01/16/22 10/11/22 Genevieve Gtz MD 230 [place] [address] PCP - General Internal Medicine 10/12/22 documented as of this encounter
--- OUTSIDE RECORDS SUMMARY | 2024-10-29 11:39 | XMS_ITS | Encounter Summary ---
Author Organization [employer] Address [address] [facility] 7t [place] [address] Care Team Providers Care Coil Winding Machines Set Up Mechanic Name Role Phone Genevieve Gtz MD Primary Care Pro vider Reason for Visit * Reason Comments Med Change Request Encounter Details Date Type Department Care Team ([facility] st Contact Info) Description 03/15/2023 Refill C [facility] MED & PEDS [address] [place], [place] [phone] Genevieve Gtz MD 230 [place], [place] [phone] Benign essential hypertension Social History Tobacco Use Types Packs/Day Years Used Date Smoking Tobacco: Never Smokeless Tobacco: Never Alcohol Use Standard Drinks/Week Comments Never 0 (1 standard drink = 0.6 oz pur e alcohol) Depression Answer Date Recorded Patient Health Questionnaire-9 Score 0 10/12/2022 Housing Stability Answer Date Recorded What is your housing situation today? I have katyasaw reinoso 12/13/[address] you [...] Description 11/19/2024 3:15 PM EDT Clinical Support [facility] MED & PEDS 505 [place] [address] Paola Thurston, KIRIT 505 [place] [address] documented as of this encounter Visit Diagnoses Diagnosis Benign essential hypertension Essential hypertension, benign documented in this encounter Additional Health Concerns Assessment Noted Time PHQ-9 Depression Total Score: 0 10/13/19 23 2:37 PM EDT documented as of this encounter Care Teams Coil Winding Machines Set Up Mechanic Relationship Specialty Start Date End Date Genevieve Gtz MD [address] [place] [address] PCP - General Internal Medicine 10/12/22 documented as of this encounter
--- OUTSIDE RECORDS SUMMARY | 2024-10-29 11:39 | XMS_ITS | Encounter Summary ---
Author Organization [employer] Address 75 [facility] 7t [place] [address] Care Team Providers Care Metal Stamping Machine Operator Name Role Phone Genevieve Gtz MD Primary Care Pro vider Encounter Details Date Type Department Care Team (Latest Contact Info) Description 10/24/2024 Travel Social History Tobacco Use Types Packs/Day Years [...] Description 11/19/2024 3:15 PM EDT Clinical Support [facility] MED & PEDS 505 [place] [address] Paola Thurston RN 505 [place] [address] documented as of this encounter Goals Goal [...] documented as of this encounter Care Teams Metal Stamping Machine Operator Relationship Specialty Start Date End Date Genevieve Gtz MD [address] [place] [address] PCP - General Internal Medicine 10/12/22 documented as of this encounter
--- OUTSIDE RECORDS SUMMARY | 2024-10-29 11:39 | XMS_ITS | Encounter Summary ---
Author Organization [employer] Address [address] [facility] 7t [place] [address] Care Team Providers Care Outbound Call Center Representative Name Role Phone Genevieve Gtz MD Primary Care Pro vider Encounter Details Date Type Department Care Team (Late st Contact Info) Description 01/21/2024 Telephone [facility] MEDICINE 230 [place], [place] [phone] Genevieve Gtz MD 230 [place], [place] [phone] Social History Tobacco Use Types Packs/Day Years [...] your housing situation today? I have katyasaw reinsoo 09/20/[address] you li [...] Oxycodone 5mg , pt requests a callback [phone] documented in this encounter Plan of Treatment Upcoming Encounters Date Type Department Care Team (Late st Contact Info) Description 11/19/2024 3:15 PM EDT Clinical Support [facility] MED & PEDS 505 [place] [address] Paola Thurston, KIRIT 505 [place] [address] documented as of this encounter Goals Goal [...] documented as of this encounter Care Teams Outbound Call Center Representative Relationship Specialty Start Date End Date Genevieve Gtz MD [address] [place] [address] PCP - General Internal Medicine 10/12/22 documented as of this encounter
--- OUTSIDE RECORDS SUMMARY | 2024-10-29 11:39 | XMS_ITS | Encounter Summary ---
Author Organization [employer] Address [address] [facility] 7t [place] [address] Care Team Providers Care Wire Brush Maker Name Role Phone Geneiveve Gtz MD Primary Care Pro vider Reason for Visit * Reason Onset Date Comments Med Refill 06/21/2023 Encounter Details Date Type Department Care Team ([facility] Contact Info) Description 06/21/2023 Telephone [facility] MEDICINE 230 [place], [place] [phone] Genevieve Gtz MD 230 [place], [place] [phone] Med Refill Social History Tobacco Use Types [...] immediate release tablet To be sent to: [facility]/pharmacy #[id number] [place], [place] - [address] [place] [address] documented in this encounter Plan of Treatment Upcoming Encounters Date Type Department Care Team (Late st Contact Info) Description 11/19/2024 3:15 PM EDT Clinical Support [facility] MED & PEDS 505 [place] [address] Paola Thurston, KIRIT 505 [place] [address] documented as of this encounter Goals Goal [...] documented as of this encounter Care Teams Wire Brush Maker Relationship Specialty Start Date End Date Genevieve Gtz MD [address] [place] [address] PCP - General Internal Medicine 10/12/22 documented as of this encounter
--- OUTSIDE RECORDS SUMMARY | 2024-10-29 11:39 | XMS_ITS | Encounter Summary ---
Author Organization [employer] Address 75 [facility] 7t [place] [address] Care Team Providers Care Software Project Engineer Name Role Phone Genevieve Gtz MD Primary Care Pro vider Reason for Visit * Reason Onset Date Comments Hospital Follow-up 03/04/2024 Encounter Details Date Type Department Care Team ([facility] Contact Info) Description 03/04/2024 Telephone [facility] MEDICINE 230 [place], [place] [phone] Genevieve Gtz MD 230 [place] [address] Hospital Follow-up Social History Tobacco Use Types [...] your housing situation today? I have katya reinsoo 09/20/[address] you [...] from pt requesting a HDF appt. Hospital: [facility] [place] [place] Date of admission: 02/21/2024 Discharge date: 02/01/2025 Diagnosed: Oxygen , Infection Dialysis tube *Send message to [place] Clinical Care Coordinators documented in this encounter Plan of Treatment Upcoming Encounters Date Type Department Care Team ([facility] st Contact Info) Description 11/19/2024 3:15 PM EDT Clinical Support [facility] MED & PEDS 505 [place] [address] Paola Thurston, RN 505 [place] [address] documented as of this encounter Goals Goal [...] documented as of this encounter Care Teams Software Project Engineer Relationship Specialty Start Date End Date Genevieve Gtz MD [address] [place] [address] PCP - General Internal Medicine 10/12/22 documented as of this encounter
--- OUTSIDE RECORDS SUMMARY | 2024-10-29 11:39 | XMS_ITS | Encounter Summary ---
Author Organization [employer] Address 75 [facility] 7t [place] [address] Care Team Providers Care Online Advertising Manager Name Role Phone Genevieve Gtz MD Primary Care Pro vider Encounter Details Date Type Department Care Team (Late st Contact Info) Description 08/27/2024 Results Follow-Up [facility] MEDICINE 230 [place], [place] [phone] Genevieve Gtz MD 230 [place], [place] [phone] Glucose, Whole Blood, Glucose, Whole Blood, Glucose, Whole Blood Social History Tobacco Use Types Packs/Day Years [...] Encounter Note - Genevieve Casillas MD - 08/27/2024 9:18 AM EDT Labs done by outside provider documented in this encounter Plan of Treatment Upcoming Encounters Date Type Department Care Team (Late st Contact Info) Description 11/19/2024 3:15 PM EDT Clinical Support [facility] MED & PEDS 505 [place] [address] Paola Thurston, KIRIT 505 [place] [address] documented as of this encounter Goals Goal [...] documented as of this encounter Care Teams Online Advertising Manager Relationship Specialty Start Date End Date Genevieve Gtz MD [address] [place] [address] PCP - General Internal Medicine 10/12/22 documented as of this encounter
--- OUTSIDE RECORDS SUMMARY | 2024-10-29 11:39 | XMS_ITS | Encounter Summary ---
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 Author Blood Pressure < 140/90 Blood Pressure 129/75(2024 9:08 AM EST) No Jaime Chilel Hemoglobin A1c < 8 Result Component 5.7( 9:45 AM EST) No Jaime Chilel documented as of this encounter Visit Diagnoses Diagnosis Chronic ulcer of 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 (CMS/HCC) Chronic wound documented in this encounter Additional Health Concerns Assessment Noted Time PHQ-9 Depression Total Score: 0 10/23/19 24 2:23 PM EDT documented as of this encounter Care Teams Ip Technology Transactions Attorney Relationship Specialty Start Date End Date Genevieve Gtz MD [address] [place] [address] PCP - General Internal Medicine 10/12/22 documented as of this encounter
--- OUTSIDE RECORDS SUMMARY | 2024-10-29 11:39 | XMS_ITS | Encounter Summary ---
Author Organization [employer] Address 75 [facility] 7t [place] [address] Care Team Providers Care Field Staff Manager Name Role Phone Genevieve Gtz MD Primary Care Pro vider Reason for Visit * Reason Onset Date Comments Appointment Request 08/22/2024 Encounter Details Date Type Department Care Team ([facility] Contact Info) Description 08/22/2024 Telephone [facility] MEDICINE 230 [place], [place] [phone] Genevieve Gtz MD 230 [place], [place] [phone] Appointment Request Social History Tobacco Use Types [...] Telephone Encounter - Colten Mullen - 08/22/2024 10:48 AM EDT Pt is requesting to reschedule apt missed on 08/06 . Pt is requesting apt to be in [place] office Contact pt at [phone] documented in this encounter Plan of Treatment Upcoming Encounters Date Type Department Care Team (Late st Contact Info) Description 11/19/2024 3:15 PM EDT Clinical Support [facility] MED & PEDS 505 [place] [address] Paola Thurston, RN 505 [place] [address] documented as of this encounter Goals Goal [...] documented as of this encounter Care Teams Field Staff Manager Relationship Specialty Start Date End Date Genevieve Gtz MD [address] [place] [address] PCP - General Internal Medicine 10/12/22 documented as of this encounter
--- OUTSIDE RECORDS SUMMARY | 2024-10-29 11:39 | XMS_ITS | Encounter Summary ---
Author Organization [employer] Address [address] [place] [address] 7t [place] [address] Care Team Providers Care Public Speaking Professor Name Role Phone Genevieve Gtz MD Primary Care Pro vider Reason for Visit * Reason Onset Date Comments Med Refill 11/27/2022 Encounter Details Date Type Department Care Team ([facility] st Contact Info) Description 11/27/2022 Telephone [facility] MEDICINE 230 [place], [place] [phone] Genevieve Gtz MD 230 [place], [place] [phone] Med Refill Social History Tobacco Use Types [...] medication oxycodone 5 mg. Please send to [facility]/pharmacy #[id number] - [place] - [address] Cool documented in this encounter Plan of Treatment Upcoming Encounters Date Type Department Care Team (Late st Contact Info) Description 11/19/2024 3:15 PM EDT Clinical Support [facility] MED & PEDS [address] [place] [address] Paola Thurston, RN 505 [place] [address] documented as of this encounter Visit Diagnoses Not on filedocumented in this encounter Additional Health Concerns Assessment Noted Time PHQ-9 Depression Total Score: 0 10/13/19 2:37 PM EDT documented as of this encounter Care Teams Public Speaking Professor Relationship Specialty Start Date End Date Genevieve Gtz MD [address] [place] [address] PCP - General Internal Medicine 10/12/22 documented as of this encounter
--- OUTSIDE RECORDS SUMMARY | 2024-10-29 11:40 | XMS_ITS | Clinical Summary ---
Author Organization [facility] Address [address] [address] Phone Care Team Providers Care Home Worker Name Role Phone Katlyn Manzanofer Primary Care [...] Encounters Date Type Department Care Team Description 10/25/2024 Treatment [facility] [address] [phone] Ed Carver MD End stage renal disease; Dependence on renal dialysis 10/21/2024 Treatment [facility] [address] [phone] Ed Carver MD End stage renal disease; Dependence on renal dialysis 10/14/2024 Treatment [facility] [address] [phone] Ed Carver MD End stage renal disease; Dependence on renal dialysis 10/09/2024 Treatment [facility] [address] [phone] Ed Carver MD End stage renal disease; Dependence on renal dialysis 10/02/2024 Orders Only [facility] [address] [phone] Ed Carver MD 09/25/2024 Treatment [facility] [address] [address] Ed Carver MD End stage renal disease; Dependence on renal dialysis 09/23/2024 TCM in Dialysis Clinic [facility] [address] [address] Ed Carver MD 09/23/2024 Treatment [facility] [address] [address] Ed Carver MD End stage renal disease; Dependence on renal dialysis 09/16/2024 Treatment [facility] [address] [address] Ed Carver MD End stage renal disease; Dependence on renal dialysis 08/14/2024 Treatment [facility] [address] [address] Ed Carver MD End stage renal disease; Dependence on renal dialysis 08/12/2024 [facility] in Dialysis Clinic [facility] [address] [address] Ed Carver MD 08/12/2024 Treatment [facility] [address] [phone] Ed Carver MD End stage renal disease; [...] Exam 02/21/2022 Diabetes: Visual Foot Exam 02/21/2022 Influenza Vaccine (#1) 2024 09/30/2016, 2011 Diabetes: Hemoglobin A1C 12/03/2024 025, 06/05/2024, 03/07/2024, Additional history exists Procedures Procedure Name Priority Date/Time Associated Diagnosis Comments HEMOGLOBIN Routine 10/23/2024 3:00 AM EDT LI () Routine 10/21/2024 3:00 AM EDT PHOSPHATE ( PHOSPHORUS) Routine 10/21/2024 3:00 AM EDT HEMOGLOBIN Routine 10/16/2024 3:00 AM EDT LIH () Routine 10/07/2024 3:00 AM EDT KT/V NATURAL LOG, URR (HC) Routine 10/07/2024 3:00 AM EDT HEPATITIS B SURFACE ANTIGEN W/REFL CONFIRM Routine 10/02/2024 3:00 AM EDT FERRITIN Routine 10/02/2024 3:00 AM EDT TRANSFERRIN SATURATION Routine 3:00 AM EDT PROTEIN, TOTAL, SERUM Routine 10/02/2024 3:00 AM EDT MAGNESIUM Routine 10/02/2024 3:00 AM EDT ELECTROLYTE PANEL Routine 10/02/2024 3:0 0 AM EDT LACTATE DEHYDROGENASE Routine 10/02/2024 3:00 AM EDT LIH (HC) Routine 10/02/2024 3:00 AM EDT CREATININE, SERUM Routine 10/02/2024 3:0 0 AM EDT GLUCOSE, RANDOM Routine 10/02/2024 3:00 AM EDT BUN/CREATININE RATIO Routine 10/02/2024 3:00 AM EDT BILIRUBIN, TOTAL Routine 10/02/2024 3:00 AM EDT AST Routine 10/02/2024 3:00 AM EDT ALT Routine 10/02/2024 3:00 AM EDT ALKALINE PHOSPHATASE Routine 10/02/2024 3:00 AM EDT CALCIUM PHOSPHORUS PRODUCT, ADJUSTED (HC) Routine 10/02/2024 3:00 AM EDT CBC AND DIFFERENTIAL Routine 10/02/2024 3:00 AM EDT KT/V NATURAL LOG, URR (HC) Routine 10/02/2024 3:00 AM EDT HEMOGLOBIN Routine 09/25/2024 3:00 AM EDT HEMOGLOBIN Routine 09/18/2024 3:00 AM EDT PHOSPHATE ( PHOSPHORUS) Routine 09/16/2024 3:00 AM EDT LIH (HC) Routine 09/16/2024 3:00 AM EDT HEMOGLOBIN Routine 09/16/2024 3:00 AM EDT ELECTROLYTE PANEL Routine 09/09/2024 6:0 5 PM EDT POTASSIUM Routine 09/09/2024 2:03 AM EDT HEMOGLOBIN A1C Routine 09/02/2024 3:00 AM EDT [...] URR (HC) Routine 08/07/2024 3:00 AM EDT from Last 3 Months Results * (ABNORMAL) Hemoglobin (10/23/2024 3:00 AM EDT) Only the most recent of5 resultswithin the time period is included. Hgb 10.4(L) 11.2 - 15.7 g/dL [facility] Hemoglobin x 3 31.2(L) 33.6 - 47.1 g/dL [facility] 10/23/2024 3:00 AM EDT 10/24/2024 12:58 PM EDT us Ed Carver MD LAB BLOOD ORDERABLES Final Result Performing Organization Address City/[facility] Co de Phone Number [facility] [address] [place] [address] * LIH (10/21/2024 3:00 AM EDT) Only the most recent of6 resultswithin the time period is included. Lipemia Normal Normal [facility] Icterus Normal Normal [facility] Hemolysis Normal Normal [facility] 10/21/2024 3:00 AM EDT 10/22/2024 1:27 PM EDT us Ed Carver MD LAB HISTORICA [id number] RESULTS Final Result Performing Organization Address [facility] de Phone Number [facility] [address] [place] [address] * (ABNORMAL) Phosphorus (10/21/2024 3:00 AM EDT) Only the most recent of2 resultswithin the time period is included. Phosphorus, Serum 8.8(H) 2.5 - 5.0 mg/dL [facility] 10/21/2024 3:00 AM EDT 10/22/2024 1:27 PM EDT us Ed Carver MD LAB BLOOD ORDERABLES Final Result Performing Organization Address [facility] Co de Phone Number [facility] [address] [place] [address] * (ABNORMAL) Kt/V Natural Log, URR (10/07/2024 3:00 AM EDT) Only the most recent of4 resultswithin the time period is included. Pathologist [facility] Treatment Time 178 min [facility] Pre-Weight, lb 85.7 kg [facility] Post-Weight, lb 81.5 kg [facility] Ultrafiltration Rate 17(H) <=13 mL/kg/hr [facility] Comment: Recommend achieving Ultrafiltration Rate (UFR) <=10 mL/kg/hr References: Estelle GARCIA et al. Kidney Int. 2010; 79(2):250-257 BUN 104(H) 7 - 25 mg/dL [facility] BUN Post Dialysis 21 7 - 25 mg/dL [facility] UREA REDUCTION RATIO (%) 80 >=65 % [facility] Kt/V Natural Log 1.89 >=1.2 [facility] 10/07/2024 3:00 AM EDT 10/08/2024 2:06 PM EDT us Ed Carver MD LAB HISTORICA [id number] RESULTS Final Result Performing Organization Address [facility] Co de Phone Number [facility] [address] [place] [address] * (ABNORMAL) Calcium Phosphorus Product, Adjusted (10/02/2024 3:00 AM EDT) Only the most recent of3 resultswithin the time period is included. Pathologist [facility] Albumin 4.1 3.6 - 5.4 g/dL [facility] Calcium 7.9(L) 8.6 - 10.3 mg/dL [facility] Phosphorus, Serum 11.0(H) 2.5 - 5.0 mg/dL [facility] Ca*PO4 86.9(A) <55.0 mg2/dL2 [facility] Calcium, Adjusted Total 7.9(L) 8.6 - 10.3 mg/dL [facility] CA*PO4 CORRCTD 86.9(A) <55.0 mg2/dL2 [facility] 10/02/2024 3:00 AM EDT 10/03/2024 4:44 PM EDT Ed Carver MD LAB HISTORICA [id number] RESULTS Final Result Performing Organization Address City/State/[facility] Co de Phone Number [facility] [address] [place] [address] * Hepatitis B Surface Ag w/Reflex Confirmation (10/02/2024 3:00 AM EDT) Only the most recent of3 resultswithin the time period is included. Hep B Surface Antigen Negative Negative [facility] 10/02/2024 3:00 AM EDT 10/03/2024 4:44 PM EDT us Ed Carver MD LAB BLOOD ORDERABLES Final Result Performing Organization Address [facility] de Phone Number [facility] [address] [place] [address] * BUN/CREATININE RATIO (10/02/2024 3:00 AM EDT) Only the most recent of3 resultswithin the time period is included. BUN/Creatinine Ratio 8.0 <=23.0 [facility] 10/02/2024 3:00 AM EDT 10/03/2024 4:44 PM EDT us Ed Carver MD LAB HISTORICA [id number] RESULTS Final Result Performing Organization Address [facility] de Phone Number [facility] [address] [place] [address] * (ABNORMAL) TSAT (10/02/2024 3:00 AM EDT) Only the most recent of3 resultswithin the time period is included. Iron 67 50 - 170 ug/dL [facility] Transferrin 164(L) 250 - 380 mg/dL [facility] TIBC 230 211 - 406 ug/dL [facility] Iron Saturation (TSat) 29 22 - 52 % [facility] 10/02/2024 3:00 AM EDT 10/03/2024 4:44 PM EDT us Ed Carver MD LAB BLOOD ORDERABLES Final Result [facility] [address] [place] [address] * (ABNORMAL) CBC and Differential (10/02/2024 3:00 AM EDT) Only the most recent of3 resultswithin the time period is included. DIFFERENTIAL MANUAL, 2 Not Indicated [facility] White Blood Cells 8.5 4.0 - 10.0 K/uL [facility] RBC 2.81(L) 3.93 - 5.22 M/uL [facility] Hgb 8.9(L) 11.2 - 15.7 g/dL [facility] Hemoglobin x 3 26.7(L) 33.6 - 47.1 g/dL [facility] Hematocrit 28.1(L) 34.1 - 44.9 % [facility] MCV 100.0(H) 79.4 - 94.8 fL [facility] MCH 31.7 25.6 - 32.2 pg [facility] MCHC 31.7(L) 32.2 - 35.5 g/dL [facility] RDW 14.9(H) 11.7 - 14.4 % [facility] Platelets 218 182 - 369 K/uL [facility] Neutrophils Relative 70.0 34.0 - 71.1 % [facility] Lymphocytes Relative 11.0(L) 19.3 - 51.7 % [facility] Monocytes 14.3(H) 4.7 - 12.5 % [facility] Eosinophils Relative 3.6 0.7 - 5.8 % [facility] Basophils Relative 0.5 0.1 - 1.2 % [facility] Immature Granulocytes 0.6 0.0 - 1.0 % [facility] 10/02/2024 3:00 AM EDT 10/03/2024 4:36 PM EDT us Ed Carver MD LAB BLOOD ORDERABLES Final Result [facility] [address] [place] [address] * ALT (10/02/2024 3:00 AM EDT) Only the most recent of3 resultswithin the time period is included. Pathologist [facility] ALT (SGPT) 12 10 - 49 U/L [facility] 10/02/2024 3:00 AM EDT 10/03/2024 4:44 PM EDT Ed Carver MD LAB BLOOD ORDERABLES Final Result Performing Organization Address [facility] Co de Phone Number [facility] [address] [place] [address] * AST (10/02/2024 3:00 AM EDT) Only the most recent of3 resultswithin the time period is included. AST (SGOT) 16 <34 U/L [facility] 10/02/2024 3:00 AM EDT 10/03/2024 4:44 PM EDT Ed Carver MD LAB BLOOD ORDERABLES Final Result Performing Organization Address [facility] de Phone Number [facility] [address] [place] [address] * Protein, total (10/02/2024 3:00 AM EDT) Only the most recent of3 resultswithin the time period is included. Total Protein 7.6 6.4 - 8.9 g/dL [facility] 10/02/2024 3:00 AM EDT 10/03/2024 4:44 PM EDT Ed Carver MD LAB BLOOD ORDERABLES Final Result Performing Organization Address [facility] Co de Phone Number [facility] [address] [place] [address] * (ABNORMAL) Alkaline phosphatase (10/02/2024 3:00 AM EDT) Only the most recent of3 resultswithin the time period is included. Alkaline Phosphatase 148(H) 46 - 116 U/L [facility] 10/02/2024 3:00 AM EDT 10/03/2024 4:44 PM EDT us Ed Carver MD LAB BLOOD ORDERABLES Final Result Performing Organization Address [facility] Co de Phone Number [facility] [address] [place] [address] * (ABNORMAL) Magnesium (10/02/2024 3:00 AM EDT) Only the most recent of3 resultswithin the time period is included. Magnesium 3.0(H) 1.9 - 2.7 mg/dL [facility] 10/02/2024 3:00 AM EDT 10/03/2024 4:44 PM EDT us Ed Carver MD LAB BLOOD ORDERABLES Final Result Performing Organization Address [facility] de Phone Number [facility] [address] [place] [address] * (ABNORMAL) Lactate dehydrogenase (10/02/2024 3:00 AM EDT) Only the most recent of3 resultswithin the time period is included. LDH 321(H) 120 - 246 U/L [facility] 10/02/2024 3:00 AM EDT 10/03/2024 4:44 PM EDT us Ed Carver MD LAB BLOOD ORDERABLES Final Result Performing Organization Address [facility] de Phone Number [facility] [address] [place] [address] * (ABNORMAL) Glucose, random (10/02/2024 3:00 AM EDT) Only the most recent of3 resultswithin the time period is included. Glucose 308(H) 70 - 99 mg/dL [facility] Comment: ADA guidelines outline the following fasting glucose ranges: Normal: <100 Prediabetes: 100-125 Diabetes: >125 10/02/2024 3:00 AM EDT 10/03/2024 4:44 PM EDT us Ed Carver MD LAB BLOOD ORDERABLES Final Result Performing Organization Address [facility] Co de Phone Number [facility] [address] [place] [address] * Ferritin (10/02/2024 3:00 AM EDT) Only the most recent of3 resultswithin the time period is included. Ferritin 254 10 - 291 ng/mL [facility] 10/02/2024 3:00 AM EDT 10/03/2024 4:44 PM EDT Ed Carver MD LAB BLOOD ORDERABLES Final Result Performing Organization Address [facility] de Phone Number [facility] [address] [place] [address] * (ABNORMAL) Creatinine, serum (10/02/2024 3:00 AM EDT) Only the most recent of3 resultswithin the time period is included. Creatinine 10.08(H) 0.55 - 1.02 mg/dL [facility] 10/02/2024 3:00 AM EDT 10/03/2024 4:44 PM EDT Ed Carver MD LAB BLOOD ORDERABLES Final Result Performing Organization Address [facility] de Phone Number [facility] [address] [place] [address] * Bilirubin, total (10/02/2024 3:00 AM EDT) Only the most recent of3 resultswithin the time period is included. Total Bilirubin 0.3 0.3 - 1.2 mg/dL [facility] 10/02/2024 3:00 AM EDT 10/03/2024 4:44 PM EDT us Ed Carver MD LAB BLOOD ORDERABLES Final Result Performing Organization Address [facility] Co de Phone Number [facility] [address] [place] [address] * (ABNORMAL) Electrolyte panel (10/02/2024 3:00 AM EDT) Only the most recent of4 resultswithin the time period is included. Sodium 136 136 - 145 mEq/L [facility] Potassium 4.6 3.4 - 5.0 mEq/L [facility] Chloride 96(L) 98 - 107 mEq/L [facility] Bicarbonate (CO2) 21 21 - 31 mEq/L [facility] Anion Gap 19(H) 3 - 14 mEq/L [facility] 10/02/2024 3:00 AM EDT 10/03/2024 4:44 PM EDT Ed Carver MD LAB BLOOD ORDERABLES Final Result Performing Organization Address [facility] de Phone Number [facility] [address] [place] [address] * (ABNORMAL) Potassium (09/09/2024 2:03 AM EDT) Potassium 6.9(HH) 3.3 - 5.1 mmol/L See order comments Comment: Critical [pots] sent by a secure message and confirmed by (dr. graves, 09/09/24 and time02:29) Tech:[email or web address] 09/09/2024 2:03 AM EDT 09/09/2024 2:03 AM EDT Fernando Siddiqi MD LAB BLOOD ORDERABLES Final Re sult Performing Organization Address [facility] Co de Phone Number [place] See order comments [place] [address] * Confirmation Test HCV (09/02/2024 3:00 AM EDT) Hep C Ab Confirmation Not needed [facility] 09/02/2024 3:00 AM EDT 09/03/2024 2:33 PM EDT Ed Carver MD LAB BLOOD ORDERABLES Final Result Performing Organization Address [facility] de Phone Number [facility] [address] [place] [address] * HEPATITIS C ABS W/REFLEX RNA DETECTR (09/02/2024 3:00 AM EDT) [facility] Hep C Virus Ab Non-Reacti ve Non-Reacti ve [facility] 09/02/2024 3:00 AM EDT 09/03/2024 2:17 PM EDT Ed Carver MD LAB HISTORICA [id number] RESULTS Final Result Performing Organization Address [facility] de Phone Number [facility] [address] [place] [address] * PTH, Intact (09/02/2024 3:00 AM EDT) [facility] PTH, Intact 686 160 - 721 pg/mL [facility] Comment: Suggested (KDIGO) ESRD maintenance range is two to nine times the upper normal limit (80.1 pg/mL) for the laboratory. 09/02/2024 3:00 AM EDT 09/03/2024 2:17 PM EDT Ed Carver MD LAB BLOOD ORDERABLES Final Result Performing Organization Address [facility] de Phone Number [facility] [address] [place] [address] * (ABNORMAL) Hemoglobin A1c (09/02/2024 3:00 AM EDT) [facility] Hemoglobin A1C 6.2(H) <5.7 % [facility] Comment: Methodology: Enzymatic Normal: <5.7% Prediabetes: 5.7-6.4% Diabetes: >6.4% Diabetic Glucose Control Evaluation: Therapeutic action suggested at >8.0% ADA recommends a glycemic goal of <7.0% 09/02/2024 3:00 AM EDT 09/03/2024 2:33 PM EDT Ed Carver MD LAB BLOOD ORDERABLES Final Result Performing Organization Address City/[facility] Co de Phone Number [facility] [address] [place] [address] * (ABNORMAL) Lipid panel (09/02/2024 3:00 AM [...] ORDERABLES Final Result Performing Organization Address [facility] Co de Phone Number [facility] [address] [place] [address] from Last 3 Months Insurance [facility] ([id number]) [place] [phone] [facility] ([id number]) [facility] ([id number]) Care Teams Home Worker Relationship Specialty Start Date End Date Alyssa Manzano DO [address] [place] [id number] PCP - General Family Medicine 03/02/21
--- OUTSIDE RECORDS SUMMARY | 2024-10-29 11:40 | XMS_ITS | Encounter Summary ---
Author Organization [employer] Address [address] [facility] 7t [place] [address] Care Team Providers Care Instructor Of Spanish Name Role Phone Genevieve Gtz MD Primary Care Pro vider Reason for Visit * Reason Onset Date Comments Med Refill 12/19/2023 Encounter Details Date Type Department Care Team ([facility] Contact Info) Description 12/19/2023 Telephone [facility] MEDICINE [address] [place] [address] Genevieve Gtz MD [address] [place], [place] [phone] Med Refill Social History Tobacco Use Types [...] immediate release tablet To be sent to: [facility]/pharmacy #[id number] [place] [address] documented in this encounter Plan of Treatment Upcoming Encounters Date Type Department Care Team (Late st Contact Info) Description 11/19/2024 3:15 PM EDT Clinical Support [facility] [address] [place] [address] Paola Thurston RN [address] [place] [address] documented as of this encounter Goals Goal [...] documented as of this encounter Care Teams Instructor Of Spanish Relationship Specialty Start Date End Date Genevieve Gtz MD [address] [place] [address] PCP - General Internal Medicine 10/12/22 documented as of this encounter
--- OUTSIDE RECORDS SUMMARY | 2024-10-29 11:40 | XMS_ITS | Clinical Summary ---
Author Organization [facility] Address [address] [place] [address] Care Team Providers Care General Dentist/Owner Name Role Phone Unavailable Primary Care Provider [...] - 19+ 3-dose series) 07/28/2007 Pneumococcal Vaccine: Pediat alo (0-5 Years) and At-Risk Patients (6 to 49 Years) (1 of 2 - PCV) 07/28/2007 Pap Smear (Ages 21-65) 2009 HPV Vaccines (1 - 3-dose SCDM series) 07/28/2015 COVID-19 Vaccine ( season) 2023, 06/18/2020 Influenza Vaccine 09/26/2024 09/30/2016, 12/06/2011 HIV Screening Completed 01/09/2022 Hepatitis C Virus Screening Completed 01/09/2022 Procedures Procedure Name Priority Date/Time Associated Diagnosis [...] 0.79 S/CO ratio 01/10/2022 10:39 AM EST [employer] [employer] Hepatitis C Antibody Interpretation Nonreactive Nonreactive 01/10/2022 10:39 AM EST [employer] Blood specimen (specimen) (Plasma/Serum) 01/09/2022 8:34 AM EST 01/09/2022 9:21 AM EST us Jaziel B Post MD LAB BLOOD ORDERABLES Final Resu lt [facility]OSPITAL [facility] [employer] [address] [place] [id number] * HIV 1/2 Ag/Ab CMIA Reflex to Confirmation (01/09/2022 8:34 AM EST) HIV 1/2 Ag/Ab CMIA Nonreactive Nonreactive 01/10/2022 10:39 AM EST [employer] Comment: Results show no evidence of infection [...] BLOOD ORDERABLES Final Resu lt HOSPITAL LAB [facility] [employer] [facility] [address] [place] [address] from Last 3 Months or Most Recently Relevant to Health Maintenance Insurance [facility] MEDICARE OUT OF NETWORK Advance Directives * Full Code (Latest Code Status on File) Date Activated Date Inactivated Comments 01/06/2022 5:00 AM Question Answer Comments Decision Thoroughly Discussed with: Unable to Di scuss
--- OUTSIDE RECORDS SUMMARY | 2024-10-29 11:40 | XMS_ITS | Encounter Summary ---
Author Organization [employer] Address [address] [place] [address] 7[address] [place] [address] Care Team Providers Care Hvac Designer Name Role Phone Carolina Hsu Primary Care Provider Genevieve Wilson MD Primary Care Pro vider Reason for Visit * Reason Onset Date Comments Med Refill 07/28/2022 Encounter Details Date Type Department Care Team ([facility] st Contact Info) Description 07/28/2022 Telephone [facility] MEDICINE [address] [place] [phone] Carolina Hsu FNP Med Refill Social History Tobacco Use Types [...] 3:15 PM EDT Clinical Support [facility] [address] [place] [address] Paola Thurston, KIRIT [address] [place] [address] documented as of this encounter Visit Diagnoses Diagnosis Acute on chronic heart failure, unspecified heart failure type (CMS/[facility])- Primary Benign essential hypertension Essential hypertension, benign documented in this encounter Care Teams Hvac Designer Relationship Specialty Start Date End Date Carolina Hsu FNP PCP - General Family Medicine 01/16/22 10/11/22 Genevieve Gtz MD [address] [place] [id number] PCP - General Internal Medicine 10/12/22 documented as of this encounter
--- OUTSIDE RECORDS SUMMARY | 2024-10-29 11:40 | XMS_ITS | Clinical Summary ---
Author Organization [address] [place] [address] Address [address] [place] [address] Phone Care Team Providers Care Cold Rolling Coordinator Name Role Phone Betty Nugent MD Primary Care Provider [phone] Surgical History Surgery Date Site/Laterality Comments SECTION [...] Maintenance Due Date Last Done Comments Diabetes: Annual GFR (Glomer ular Filtration Rate) 1988 Diabetes: Annual Foot Exam 1998 Diabetes: Annual Retina Eye Exam 1998 Hepatitis B Vaccines (1 of 3 - 19+ 3-dose series) 07/28/2007 Cervical Cancer Screening: P ap Smear 2009 DTaP,Tdap,and Td Vaccines (2 - Td or Tdap) 06/24/2022 06/24/2012 Depression Screening 02/27/2024 Cholesterol Screening (Lipid Panel) 09/06/2024 Diabetes: Annual Urine Albumin-Creatinine Ratio (uACR) 09/06/2024 Diabetes: Blood Sugar Contro l Test (HGBA1C) 09/06/2024 HIV Screening 09/06/2024 Hepatitis C Screening 09/06/2024 Social Influencers of Health Screening 09/06/2024 COVID-19 Vaccine ( - 2023-2 5 season) 2024 Influenza Vaccine (#1) 2024 HIB Vaccines Aged [...] on patient's age to complete this topic Insurance MEDICA[place] - [place] [facility] Member Subscriber Plan / Payer ( fective 2023-Present) Name:ROWAN MULTANI Relation to Subscriber:Self Name:Rowan Multani Payer ID:[id number] Group ID:[id number] Type:Not on file Address: [address] [place] [id number] Care Teams Cold Rolling Coordinator Relationship Specialty Start Date End Date Betty Nugent MD [address] [place] [address] [place] PCP - General Internal Medicine 01/10/18
--- OUTSIDE RECORDS SUMMARY | 2024-10-29 11:40 | XMS_ITS | Encounter Summary ---
Author Organization [employer] Address [address] [facility] 7t [place] [address] Care Team Providers Care Molding Machine Setter Name Role Phone Genevieve Gtz MD Primary Care Pro vider Reason for Visit * Reason Onset Date Comments Med Refill 01/14/2024 Encounter Details Date Type Department Care Team ([facility] Contact Info) Description 01/14/2024 Telephone [facility] MED[facility] [address] [place] [address] Genevieve Gzt MD [address] [place], [place] [phone] Med Refill Social History Tobacco Use Types [...] any questions you can contact pt at [phone]. * Telephone Encounter - Noelle Rodrigues - 01/14/2024 11:29 AM EST TC from pt requesting medication refill. Medications needing refill : oxyCODONE (Roxicodone) 5 MG immediate release tablet To be sent to: [facility]/pharmacy [address] [place] [address] documented in this encounter Plan of Treatment Upcoming Encounters Date Type Department Care Team (Late st Contact Info) Description 11/19/2024 3:15 PM EDT Clinical Support [facility] MED & PEDS [address] [place] [address] Paola Thurston, KIRIT [address] [place] [address] documented as of this encounter Goals Goal Patient Goal Type Associated Problems Recent Progress Patient-Stated? Author Blood Pressure < 140/90 Blood Pressure 129/75(2024 9:08 AM EST) No Jaime Chilel Hemoglobin A1c < 8 Result Component 5.7( 5 9:45 AM EST) No Jaime Chilel documented as of this encounter Visit Diagnoses Not on filedocumented in this encounter Additional Health Concerns Assessment Noted Time PHQ-9 Depression Total Score: 0 10/23/19 24 2:23 PM EDT documented as of this encounter Care Teams Molding Machine Setter Relationship Specialty Start Date End Date Genevieve Gtz MD [address] [place] [address] PCP - General Internal Medicine 10/12/22 documented as of this encounter
--- OUTSIDE RECORDS SUMMARY | 2024-10-29 11:40 | XMS_ITS | Encounter Summary ---
Author Organization [facility] Address [address] [place] [phone] Phone Care Team Providers Care Senior Vice President & General Counsel Name Role Phone EmilyAlyssa hutchinson Primary Care Provider Unava ilable Encounter Details Date Type Department Care Team (Late st Contact Info) Description 09/23/2024 TCM in Dialysis Clinic [facility] [address] [address] Placido Carver MD [address] [address] Social History Tobacco Use Types Packs/Day Years Used Date Smoking Tobacco: Never Assessed Comments Unknown Sex and Gender Information Value Date Recorded Sex Assigned at Not on file Legal Sex Female 4:53 PM EST Gender Identity Not on file Sexual Orientation Not on file documented as of this encounter Progress Notes * Placido Carver MD - 09/23/2024 12:00 AM EDT Patient: Shereen Taylor : 1990 Note Type: Dialysis TCM Service Date: 09/23/2024 The patient was seen for a [id number] visit as part of Transitional Care Management services. Attending Health Information Assistant: PLACIDO CARVER MD Dialysis Location: [facility] Schedule: Shift: 2 INTERACTIVE CONTACT Contact with the patient or caregiver was made or attempted within 2 business days of discharge - details in the medical record. HOSPITALIZATION SUMMARY Patient transitioned from: Hospital Patient transitioned to: Home Admit Date: 09/06/2024 Discharge Date: 09/18/2024 Discharged info reviewed: Followed-up on or reviewed need for pending tests/treatments as noted HOME MEDICATIONS Discharge med list reviewed and reconciled - no changes. PHYSICAL EXAM Exam performed. Vital Signs Reviewed. CV - Blood pressure noted. No edema. EXT - Foot ulcers. CARE COORDINATION Post-discharge follow-up appointments reviewed with the patient. VISIT DIAGNOSES CPT Code 63400 - High complexity, seen within 7 days of discharge. N18.6 End stage renal disease Signed by: PLACIDO CARVER MD on 09/23/2024 at 10:14:56 PM Transcribed by: PLACIDO CARVER MD on 09/23/2024 at 10:14:56 PM documented in this encounter Plan of Treatment Not on file documented as of this encounter Visit Diagnoses Not on filedocumented in this encounter Care Teams Senior Vice President & General Counsel Relationship Specialty Start Date End Date Alyssa Manzano DO [address] [place] [address] PCP - General Family Medicine 03/02/21 documented as of this encounter
--- OUTSIDE RECORDS SUMMARY | 2024-10-29 11:40 | XMS_ITS | Encounter Summary ---
Author Organization [facility] Address [address] [place] [phone] Phone Care Team Providers Care Soft Metals Engraver Hand Name Role Phone EmilyAlyssa hutchinson Primary Care Provider Unava ilable Encounter Details Date Type Department Care Team (Late st Contact Info) Description 07/08/2024 TCM in Dialysis Clinic [facility] [address] [address] Placido Carver MD [address] [address] Social History Tobacco Use Types Packs/Day Years Used Date Smoking Tobacco: Never Assessed Comments Unknown Sex and Gender Information Value Date Recorded Sex Assigned at Not on file Legal Sex Female 4:53 PM EST Gender Identity Not on file Sexual Orientation Not on file documented as of this encounter Progress Notes * Placido Carver MD - 07/08/2024 12:00 AM EDT Patient: Shereen Taylor : 1990 Note Type: Dialysis TCM Service Date: 07/08/2024 The patient was seen for a owik-ja-wbfc visit as part of Transitional Care Management services. Attending Sterile Supervisor: PLACIDO CARVER MD Dialysis Location: [facility] Schedule: Shift: 2 INTERACTIVE CONTACT Contact with the patient or caregiver was made or attempted within 2 business days of discharge - details in the medical record. HOSPITALIZATION SUMMARY Patient transitioned from: Hospital Patient transitioned to: Home Admit Date: 07/03/2024 Discharge Date: 07/07/2024 Discharged info reviewed: No outstanding diagnostic tests and treatments HOME MEDICATIONS Discharge med list reviewed and reconciled - no changes. Active treatment medication orders reviewed - no changes. PHYSICAL EXAM Exam performed. Vital Signs Reviewed. CV - Blood pressure noted. No edema. EXT - No ulcers. VISIT DIAGNOSES CPT Code 17984 - High complexity, seen within 7 days of discharge. N18.6 End stage renal disease Signed by: PLACIDO CARVER MD on 07/26/2024 at 02:13:33 PM Transcribed by: PLACIDO CARVER MD on 07/26/2024 at 02:13:33 PM documented in this encounter Plan of Treatment Not on file documented as of this encounter Visit Diagnoses Not on filedocumented in this encounter Care Teams Soft Metals Engraver Hand Relationship Specialty Start Date End Date Alyssa Manzano DO [address] [place] [address] PCP - General Family Medicine 03/02/21 documented as of this encounter
--- OUTSIDE RECORDS SUMMARY | 2024-10-29 11:40 | XMS_ITS | Clinical Summary ---
Author Organization [facility] Address [address] [facility] [address] [place] [phone] Phone Care Team Providers Care Property Maintenance Technician Name Role Phone Unavailable Primary Care Provider Unavailabl e Social History Tobacco Use Types Packs/Day Years Used Date Smoking Tobacco: Never Assessed Education Answer Date Recorded Are you interested in more education? Not on vince e 09/06/2022 Are you concerned about learning? Not on file 09/06/2022 No 09/06/2022 No 09/06/2022 Digital Access Answer Date Recorded No 09/06/2022 No 09/06/2022 Reliable internet access at home? Not on file 09/06/2022 Device with a working camera? Not on file Comments Unknown Sex and Gender Information Value Date Recorded Sex Assigned at Not on file Legal Sex Female 3:51 PM EDT Gender Identity Not on file Sexual Orientation Not on file Plan of Treatment Not on file Medical Devices Not on file Additional Source Comments The information contained in this document represents components of the legal health record. It is not the complete legal health record.[facility]
--- OUTSIDE RECORDS SUMMARY | 2024-10-29 11:40 | XMS_ITS | Encounter Summary ---
Author Organization [employer] Address [address] [facility] 7t [place] [address] Care Team Providers Care Crew Car Driver Name Role Phone Genevieve Gtz MD Primary Care Pro vider Reason for Visit * Reason Comments Med Refill Encounter Details Date Type Department Care Team (Late st Contact Info) Description 08/26/2023 Refill [facility]S [address] [place], [place] [phone] Genevieve Gtz MD [address] [place], [place] [phone] Benign essential hypertension Social History Tobacco Use [...] Description 11/19/2024 3:15 PM EDT Clinical Support [facility] MED & PEDS [address] [place] [address] Paola Thurston, KIRIT [address] [place] [address] documented as of this encounter Goals Goal [...] documented as of this encounter Care Teams Crew Car Driver Relationship Specialty Start Date End Date Genevieve Gtz MD [address] [place] [address] PCP - General Internal Medicine 10/12/22 documented as of this encounter
--- OUTSIDE RECORDS SUMMARY | 2024-10-29 11:40 | XMS_ITS | Encounter Summary ---
Author Organization [employer] Address [address] [facility] 7t [place] [address] Care Team Providers Care Photocopy Operator Name Role Phone Genevieve Gtz MD Primary Care Pro vider Reason for Visit * Reason Onset Date Comments Med Refill 12/05/2023 Encounter Details Date Type Department Care Team ([facility] Contact Info) Description 12/05/2023 Telephone [facility] MEDICINE [address] [place] [address] Genevieve Gtz MD [address] [place], [place] [phone] Med Refill Social History Tobacco Use Types [...] immediate release tablet To be sent to: [facility]/pharmacy #[id number] [place] [address] documented in this encounter Plan of Treatment Upcoming Encounters Date Type Department Care Team (Late st Contact Info) Description 11/19/2024 3:15 PM EDT Clinical Support [facility] MED & PEDS [address] [place] [address] Paola Thurston RN [address] [place] [address] documented as of this encounter Goals Goal [...] documented as of this encounter Care Teams Photocopy Operator Relationship Specialty Start Date End Date Genevieve Gtz MD [address] [place] [phone] PCP - General Internal Medicine 10/12/22 documented as of this encounter
--- OUTSIDE RECORDS SUMMARY | 2024-10-29 11:40 | XMS_ITS | Encounter Summary ---
Author Organization [facility] Address [address] [place] [phone] Phone Care Team Providers Care Tree Topper Name Role Phone Katlyn Manzanofer Primary Care Provider Unava ilable Encounter Details Date Type Department Care Team (Late st Contact Info) Description 10/25/2024 Treatment [facility] [address] [address] Placido Carver MD [address] [address] End stage renal disease; Dependence [...] Dialysis Note - Placido Carver MD - 10/25/2024 12:00 AM EDT BASIC NOTE Patient: Shereen Taylor : 1990 Note Author: PLACIDO CARVER MD Service Date: 10/25/2024 This patient was personally seen [id number] for a basic visit as part of routine monthly dialysis care for end stage renal disease. Attending Electrical And Instrumentation Manager: PLACIDO CARVER MD Dialysis Location: [facility] Schedule: Shift: 2 OVERVIEW Patient is stable. ADEQUACY ASSESSMENT Kt/V, Natural Log 1.89 (10/07/24) 1.13 (10/02/24) 1.35 (09/02/24) UREA REDUCTION RATIO (%) 80 (10/07/24) 63 (10/02/24) 68 (09/02/24) BUN 104 (10/07/24) 81 (10/02/24) 97 (09/02/24) BUN Post Dialysis 21 (10/07/24) 30 (10/02/24) 31 (09/02/24) Creatinine 10.08 (10/02/24) 9.01 (09/02/24) 9.27 (08/07/24) Bicarbonate (CO2) 21 (10/02/24) 24 (09/09/24) 17 (09/02/24) Sodium 136 (10/02/24) 139 (09/09/24) 140 (09/02/24) ANEMIA ASSESSMENT Hgb 10.4 (10/23/24) 9.4 (10/16/24) 8.9 (10/02/24) Iron Saturation (TSat) 29 (10/02/24) 17 (09/02/24) 29 (08/07/24) Ferritin 254 (10/02/24) 161 (09/02/24) 166 (08/07/24) Iron 67 (10/02/24) 42 (09/02/24) 69 (08/07/24) TIBC 230 (10/02/24) 242 (09/02/24) 235 (08/07/24) MCV 100.0 (10/02/24) 98.1 (09/02/24) 94.9 (08/07/24) Platelets 218 (10/02/24) 124 (09/02/24) 149 (08/07/24) BMM ASSESSMENT Calcium, Adjusted Total 7.9 10/02/24 7.6 09/02/24 9.1 08/07/24 Calcium 7.9 10/02/24 7.6 09/02/24 9.1 08/07/24 Phosphorus, Serum 8.8 10/21/24 11.0 10/02/24 11.6 09/16/24 Ca*PO4 86.9 10/02/24 79.0 09/02/24 83.7 08/07/24 PTH, Intact 686 09/02/24 390 06/05/24 509 05/01/24 Vitamin D, 25-Hydroxy 17 01/23/24 Magnesium 3.0 10/02/24 2.4 09/02/24 2.9 08/07/24 Alkaline Phosphatase 148 10/02/24 217 09/02/24 204 08/07/24 Aluminum 7 03/06/24 5 02/12/24 NUTRITION ASSESSMENT Albumin 4.1 10/02/24 4.0 09/02/24 4.2 08/07/24 Potassium 4.6 10/02/24 4.6 09/09/24 6.9 09/09/24 Hemoglobin A1C 6.2 09/02/24 5.9 06/05/24 5.4 03/06/24 ADDITIONAL LABS White Blood Cells 8.5 (10/02/24) 8.8 (09/02/24) 6.2 (08/07/24) Cholesterol 129 (09/02/24) 140 (06/05/24) 106 (03/06/24) HDL 47 (09/02/24) 38 (06/05/24) 34 (03/06/24) LDL-Calc 72 (09/02/24) 90 (06/05/24) 64 (03/06/24) Triglycerides 49 (09/02/24) 62 (06/05/24) 42 (03/06/24) Hep B Surface Antibody 7 (03/06/24) 4 (01/23/24) Uric Acid 8.6 (03/06/24) 6.3 (01/23/24) Signed by: PLACIDO CARVER MD on 10/25/2024 at 11:52:01 AM Transcribed by: PLACIDO CARVER MD on 10/25/2024 at 11:52:01 AM documented in this encounter Plan of Treatment Not on file documented as of this encounter Visit Diagnoses Diagnosis End stage renal disease Dependence on renal dialysis documented in this encounter Care Teams Tree Topper Relationship Specialty Start Date End Date Alyssa Manzano DO [address] [place] [address] PCP - General Family Medicine 03/02/21 documented as of this encounter
--- OUTSIDE RECORDS SUMMARY | 2024-10-29 11:40 | XMS_ITS | Encounter Summary ---
Author Organization [facility] Address [address] [place] [phone] Phone Care Team Providers Care New Account Interviewer Name Role Phone EmilyAlyssa hutchinson Primary Care Provider Unava ilable Encounter Details Date Type Department Care Team (Late st Contact Info) Description 08/12/2024 TCM in Dialysis Clinic [facility] [address] [address] Placido Carver MD [address] [address] Social History Tobacco Use Types Packs/Day Years Used Date Smoking Tobacco: Never Assessed Comments Unknown Sex and Gender Information Value Date Recorded Sex Assigned at Not on file Legal Sex Female 4:53 PM EST Gender Identity Not on file Sexual Orientation Not on file documented as of this encounter Progress Notes * Placido Carver MD - 08/12/2024 12:00 AM EDT Patient: Shereen Taylor : 1990 Note Type: Dialysis TCM Service Date: 08/12/2024 The patient was seen for a uiaf-pu-[id number] visit as part of Transitional Care Management services. Attending Retail Marketing Specialist: PLACIDO CARVER MD Dialysis Location: [facility] Schedule: Shift: 2 INTERACTIVE CONTACT Contact with the patient or caregiver was made or attempted within 2 business days of discharge - details in the medical record. HOSPITALIZATION SUMMARY Patient transitioned from: Hospital Patient transitioned to: Home Admit Date: 07/31/2024 Discharge Date: 08/07/2024 HOME MEDICATIONS Discharge med list reviewed and reconciled - no changes. PHYSICAL EXAM Exam performed. Vital Signs Reviewed. CV - Blood pressure noted. No edema. EXT - Foot ulcers. CARE COORDINATION No follow-up appointments noted. VISIT DIAGNOSES CPT Code 40167 - High complexity, seen within 7 days of discharge. N18.6 End stage renal disease Signed by: PLACIDO CARVER MD on 08/12/2024 at 01:16:47 PM Transcribed by: PLACIDO CARVER MD on 08/12/2024 at 01:16:47 PM documented in this encounter Plan of Treatment Not on file documented as of this encounter Visit Diagnoses Not on filedocumented in this encounter Care Teams New Account Interviewer Relationship Specialty Start Date End Date Alyssa Manzano DO [address] [place] [address] PCP - General Family Medicine 03/02/21 documented as of this encounter
--- NOTE | 2024-10-29 12:23 | PC.NURSE ---
Pt BIBA from home for reports of headache, N/V and weakness. A/O x 4, reporting pain 10/10 for headache. Pt reports vision impairment. Dialysis cath noted to left chest, dsg appears CDI. Pt states last dialysis tx Sunday. EKG and labs obtained and sent. #20 to [facility], pt placed on bedside monitor with HR 90's-100's. Pt also noted to be hypertensive with BP in 200's systolic. Requires 2-3L O2 via [place] to maintain sat >90. Pt medicated per APR.
--- NOTE | 2024-10-29 13:17 | PHA.MEDREC ---
Addendum entered by Maulik Goodman RPh 10/29/24 13:50: Reviewed by [facility] Original Note: Pharmacy Consult ? Medication Reconciliation Pharmacy has completed the medication reconciliation. Spoke with pt and she was discharged with us 10/08 and confirmed most of those medications are up to date still. Pt finished the Ondansetron she had as needed for nausea/vomiting, she finished the Lokelma in the last month and she states she never started the Aubagio, claiming her pharmacy states she got that medication from them but pt cannot find it at home anywhere.
--- NOTE | 2024-10-29 13:56 | P.HPHOSP_ITS ---
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 Pt reports headache began yesterday with a pressure on the right side of her head. Lasted 2-3 hours. This morning at 05:00 pt awoke and found that the right side of her body felt both numb and ?heavy?. Reports has also had some difficulty speaking. Feels similar to how she previously did when diagnosed with MS. No chest pain or pressure. Chronic SOB at baseline. Chronic all-over body pain, around baseline. Reports missed dialysis yesterday due to being at court. In the ED pt's vitals were significant for elevated HR of 99 and hypertension as high as 213/119. Labs were significant for potassium 6.9, BUN 95, creatinine 11.54, T bili 1.6, and alk-phos 212. CT?of head showed new focal low-attenuation in the left thalamus new since exam on 09/04 with concern for infarct. EKG demonstrated normal sinus rhythm with chronic RBBB QTC 585. Pt was treated in the ED with with Dilaudid, IV Benadryl, metoclopramide, Lokelma, and Solu-Medrol 1 g. Pt is admitted to the hospital for treatment and further evaluation of right-sided weakness concerning for MS flare vs acute CVA as well as hyperkalemia in the setting of missed dialysis. Review of Systems 2 Review of Systems: Negative expect for that which is stated in the [facility] Medical History (Updated 10/29/24 @ 12:10 by Tommy Maxwell MD) Cerebral infarction Hyperkalemia ESRD on dialysis Hypoxia End stage renal disease on dialysis Chronic ulcer of right foot due to diabetes mellitus Chronic ulcer of left foot due to diabetes mellitus DM foot ulcer ESRD on hemodialysis Hypotonic neurogenic bladder Diabetic polyneuropathy Hypertensive emergency Decompensated heart failure Renal failure Hypertension, uncontrolled Medical non-compliance Pericarditis Unspecified hypertension, condition or complication Metabolic acidosis Gastroparesis End stage chronic kidney disease Chronic kidney disease Anemia Plantar ulcer of left foot MDD (major depressive disorder) CKD (chronic kidney disease) Hypertension Vomiting Chronic pain Non-compliance with renal dialysis End-stage renal disease (ESRD) Diabetic foot ulcer associated with type 2 diabetes mellitus Cardiomyopathy HFrEF (heart failure with reduced ejection fraction) delivery delivered Anemia in chronic kidney disease (CKD) CKD (chronic kidney disease) Abnormal finding on echocardiogram Elevated troponin Acute worsening of stage 3 chronic kidney disease Generalized edema Sepsis Cellulitis Pleural effusion Atypical chest pain Bone infection PAD (peripheral artery disease) Cellulitis and abscess of foot Osteomyelitis Asthma Depression with anxiety Diabetic retinopathy Blind right eye Diabetes Back pain Family History Mother Coronary artery disease Myocardial infarction Stroke Diabetes mellitus Father Myocardial infarction Surgical History Tubal ligation status Previous section Hx laparoscopic cholecystectomy Hx of surgical procedure (~09/11/23) 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 Social History Household Members: Family Household Members Other:: sister, brother, [id number] Housing: Apartment Housing Other:: Apartment, 1st floor Are you a primary hospice patient care secretary to a significant other at home: No Do you presently have visiting nurse or other home services: Yes (FIRMWARE MANAGER) Unable to assess alcohol history related to: Unknown Alcohol intake: never Comment: refused camera Patient Tobacco Use Status: Never used Tobacco Smoked in Last 30 Days: No e-Cigarette/Vaping Use: Never Used Second Hand Smoke Exposure: No Use of substances other than those prescribed or required for medical reasons: No Advance Directives: Yes Advance Directives on File: Yes Advance Directives Date on File: 08/28/23 service: No Current occupational status: unemployed and disabled Gender identity: Female Meds Allergies Allergy/AdvReac Type Severity Reaction Status Date / Time gabapentin Allergy Severe Facial Verified 10/29/24 09:37 Swelling tramadol Allergy Severe Facial Verified 10/29/24 09:37 Swelling vancomycin Allergy Severe Anaphylaxis Verified 10/29/24 09:37 azithromycin (From Zithromax) Allergy Intermediate Hives Verified 10/29/24 09:37 morphine (MORPHINE) Allergy Intermediate Itching Verified 10/29/24 09:37 Home Medications ?Medication ?Instructions ?Recorded ?Confirmed ?Last Taken ?Type albuterol sulfate 90 mcg/actuation 2 puff inhalation Q 6H PRN wheezing 01/15/24 10/29/24 10/28/24 History aerosol inhaler (Ventolin HFA) lidocaine 5 % topical patch 1 patch topical DAILY PRN Pain 01/15/24 10/29/24 10/28/24 History nitroglycerin 0.4 mg sublingual 0.4 mg sublingual D IRECTED PRN 01/15/24 10/29/24 10/28/24 History tablet Angina acetaminophen 325 mg tablet 650 mg PO Q4H PRN mild jamar n 03/11/24 10/29/24 10/28/24 History calcium carbonate (Tums) 200 mg PO TIDWM PRN Acid Ref lux 07/03/24 10/29/24 10/28/24 History Physical Exam 2 Vital Signs and Narrative: Vital Signs: Last Vital Signs Temp 97.7 F 10/29/24 12:12 Pulse 99 10/29/24 12:12 Resp 14 10/29/24 12:12 BP 209/119 H 10/29/24 12:12 Pulse Ox 95 10/29/24 12:12 O2 Del Method Room Air 10/29/24 12:12 Oxygen Flow Rate 3 10/29/24 09:35 BMI result Body Mass Index 33.9 General: AOx3, no acute distress. Pt is blind Resp: CTA bilaterally CVS: S1, S2, RRR GI: +BS, NT, no distention Skin: Warm, dry Neuro: Right-sided weakness of upper and lower extremities. Reduced sensation to light touch of right sided of face, arm, and leg. Extremities: No edema. Bilateral TMA; both feet wrapped in clean bandages. Psych: Calm, cooperative Results Labs 10/29/24 10:06 10/29/24 10:06 Labs: Laboratory Results - last 24 hr 10/29/24 10:06 MCV 95.4 MCH 31.3 MCHC 32.8 RDW 14.2 Plt Count 115 L MPV 12.6 H Immature Gran % (Auto) 0.3 Neut % (Auto) 78.4 H Lymph % (Auto) 12.4 L Stafford % (Auto) 5.0 Eos % (Auto) 3.2 Baso % (Auto) 0.7 Lymph # (Auto) 0.7 L Stafford # (Auto) 0.3 Eos # (Auto) 0.2 Baso # (Auto) 0.0 Abs Immat Gran (auto) 0.02 Absolute Neuts (auto) 4.7 Absolute Nucleated RBC 0.000 Nucleated RBC % (auto) 0.0 Anion Gap 27 H Estim Creat Clear Calc 6.7 Estimated GFR 4 Random Glucose 77 Calcium 8.7 D Total Bilirubin 1.6 H AST 38 H ALT 23 Alkaline Phosphatase 212 H Total Protein 9.0 H Albumin 4.7 Imaging Radiologist's Impressions: Impressions Head CT 10/29/24 10:57 IMPRESSION: There is focal low attenuation in the left thalamus that is new since the prior exam raising concern for infarct. 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 Pt is admitted to the hospital for treatment and further evaluation of right-sided weakness concerning for MS flare vs acute CVA as well as hyperkalemia in the setting of missed dialysis. Right sided weakness Since 5:00 in the morning; right-sided headache the day prior CT of head with new focal low attenuation in left thalamus concerning for infarct Unclear etiology: Concerning for MS flare vs acute CVA Will get MRI of head/brain Solu-Medrol 1g daily x3 for MS flare Neurology consult Hyperkalemia Potassium 6.9 at time of presentation In the setting of missed dialysis yesterday Pt given Sharon in the ED Will be getting dialysis today Trend labs Monitor on telemetry Hypertensive urgency BP as high as 213/119 In the setting of missed dialysis yesterday Allow for permissive hypertension x24h until stroke ruled out SBP goal 160-180 Treat with carvedilol and hydralazine as BP allows Pt getting HD today ESRD on HD //Sun Nephrology consult, follows with [facility] Missed HD on Sunday due to court appearance Follow BMP Monitor on telemetry Evm-ngeycai-kdxilostv type 2 diabetes With diabetic polyneuropathy/retinopathy Treat as above with sliding scale insulin, diabetic diet Chronic hypoxemic respiratory failure Not in acute exacerbation Pt on 3-4 L NC at home HRrEF Continue carvedilol Treat with dialysis as above Chronic pain with opioid seeking behavior Pt prefers a mix of Dilaudid 1mg IV and benadryl IV Continue home oxycodone Avoid Dilaudid IV as much as possible Full Code Attending:?Dr. Frankel DVT Prophylaxis: Heparin Pt will require a hospitalization of at least two nights for treatment of?right- sided weakness concerning for MS flare vs acute CVA as well as hypertensive urgency and hyperkalemia in the setting of missed dialysis. Pt will require hospital level care for close cardiac monitoring, monitoring of labs, specialist consultation, emergent dialysis, as well as additional imaging with MRI and close cardiac monitoring. Quality Stroke Does the patient have a stroke diagnosis?: No VTE Prior VTE?: No VTE Risk Level:: Medical - moderate - high VTE Device Contraindication: Treatment Not Indicated VTE Drug Contraindication: N/A - Med Ordered
--- NOTE | 2024-10-29 15:39 | PC.NURSE ---
Admission assessment and risk assessment completed with patient during dialysis in room 456.
[2024-10-29 16:08] LABS: Glucose, Whole Blood 116 mg/dL (60-115)
[2024-10-29 21:35] LABS: Glucose, Whole Blood 383 mg/dL (60-115)
[2024-10-29] MEDS: 0.9 % Sodium Chloride Flush 3 ML SYRINGE IVFLUSH (22:16)
[2024-10-30 01:59] LABS: Anion Gap 20 (12-20); Carbon Dioxide 22 mmol/L (22-29); Chloride 99 mmol/L (96-108); Potassium 5.4 mmol/L (3.3-5.1); Sodium 136 mmol/L (135-145)
[2024-10-30 03:16] VITALS: BP 162/88; PULSE 80; RESP 12; TEMP 36.3; O2SAT 95
[2024-10-30 07:53] LABS: Glucose, Whole Blood 279 mg/dL (60-115)
[2024-10-30 07:54] VITALS: BP 165/93; PULSE 84; RESP 20; TEMP 36.2; O2SAT 96
[2024-10-30] MEDS: 0.9 % Sodium Chloride Flush 3 ML SYRINGE IVFLUSH ×2 (08:21→19:54)
--- NOTE | 2024-10-30 09:07 | PM.NEUROCN ---
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 ER physician discussed the case with me in because of no obvious other explanation, steroid treatment was given for possible symptoms related to MS. She had an MRI of brain that did not reveal any acute abnormality. Review of Systems Review of Systems: No recent seizure-like episode cold or flu PMFSH Past Medical History Medical History (Updated 10/29/24 @ 12:10 by Tommy Maxwell MD) Cerebral infarction Hyperkalemia ESRD on dialysis Hypoxia End stage renal disease on dialysis Chronic ulcer of right foot due to diabetes mellitus Chronic ulcer of left foot due to diabetes mellitus DM foot ulcer ESRD on hemodialysis Hypotonic neurogenic bladder Diabetic polyneuropathy Hypertensive emergency Decompensated heart failure Renal failure Hypertension, uncontrolled Medical non-compliance Pericarditis Unspecified hypertension, condition or complication Metabolic acidosis Gastroparesis End stage chronic kidney disease Chronic kidney disease Anemia Plantar ulcer of left foot MDD (major depressive disorder) CKD (chronic kidney disease) Hypertension Vomiting Chronic pain Non-compliance with renal dialysis End-stage renal disease (ESRD) Diabetic foot ulcer associated with type 2 diabetes mellitus Cardiomyopathy HFrEF (heart failure with reduced ejection fraction) delivery delivered Anemia in chronic kidney disease (CKD) CKD (chronic kidney disease) Abnormal finding on echocardiogram Elevated troponin Acute worsening of stage 3 chronic kidney disease Generalized edema Sepsis Cellulitis Pleural effusion Atypical chest pain Bone infection PAD (peripheral artery disease) Cellulitis and abscess of foot Osteomyelitis Asthma Depression with anxiety Diabetic retinopathy Blind right eye Diabetes Back pain Family History Family History Mother Coronary artery disease Myocardial infarction Stroke Diabetes mellitus Father Myocardial infarction Surgical History Surgical History Tubal ligation status Previous section Hx laparoscopic cholecystectomy Hx of surgical procedure (~09/11/23) 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 Social History Social History Household Members: Family and Children Household Members Other:: sister, brother, [id number] Housing: Apartment Housing Other:: Apartment, 1st floor Are you a primary rn acute care to a significant other at home: No Do you presently have visiting nurse or other home services: No Unable to assess alcohol history related to: Unknown Alcohol intake: never Comment: refused camera Patient Tobacco Use Status: Never used Tobacco Smoked in Last 30 Days: No e-Cigarette/Vaping Use: Never Used Second Hand Smoke Exposure: No Use of substances other than those prescribed or required for medical reasons: No Have you been hit, kicked, punched, or otherwise hurt by someone within the past year? If so, by whom?: No Do you feel safe in your current relationship?: Yes Is there a partner from a previous relationship who is making you feel unsafe now?: No Are you made to feel afraid or neglected: No Spiritual Healthcare Practices: none Advance Directives: Yes Advance Directives on File: Yes Advance Directives Date on File: 08/28/23 Do you have a plan to hurt others: No Plan Recently lost weight without trying: No Nutrition Risks: No Nutritional Risk Patient : No : No Poor oral hygiene: Yes service: No Current occupational status: unemployed and disabled Gender identity: Female Meds Allergies Allergy/AdvReac Type Severity Reaction Status Date / Time gabapentin Allergy Severe Facial Verified 10/29/24 09:37 Swelling tramadol Allergy Severe Facial Verified 10/29/24 09:37 Swelling vancomycin Allergy Severe Anaphylaxis Verified 10/29/24 09:37 azithromycin (From Zithromax) Allergy Intermediate Hives Verified 10/29/24 09:37 morphine (MORPHINE) Allergy Intermediate Itching Verified 10/29/24 09:37 Active Medications: Current Medications Acetaminophen (Acetaminophen 325 Mg Tablet) 650 mg PO Q6H PRN PRN Reason: Pain, Mild 1-3,fever,headache Albuterol Sulfate (Albuterol Sulfate 90 Mcg 8 Gm Inhaler) 2 puff INHALE Q6H PRN PRN Reason: Wheezing Calcium Carbonate (Calcium Carbonate 750 Mg Tab.Chew) 750 mg PO TIDWM PRN PRN Reason: Acid Reflux Calcium Carbonate (Calcium Carbonate 750 Mg Tab.Chew) 750 mg PO Q4H PRN PRN Reason: Heartburn Carvedilol (Carvedilol 12.5 Mg Tablet) 12.5 mg PO BID [facility]; Protocol Last Admin: 10/29/24 21:31 Dose: 12.5 mg Dextrose (Dextrose 50 % 25 Gm/50 Ml Syringe) 25 gm IVPUSH Q15M PRN; Protocol PRN Reason: per Hypoglycemia Standing Ord. Glucose (Glucose Gel 15 Gm Gel..Gram.) 15 gm PO Q15M PRN; Protocol PRN Reason: per Hypoglycemia Standing Ord. Heparin Sodium (Porcine) (Heparin Sodium,Porcine 5,000 Unit/Ml Vial) 5,000 unit SUBCUT Q8H [facility] Last Admin: 10/30/24 06:18 Dose: Not Given Hydralazine HCl (Hydralazine Hcl 50 Mg Tablet) 50 mg PO TID [facility]; Protocol Last Admin: 10/29/24 21:30 Dose: 50 mg Hydralazine HCl (Hydralazine Hcl 20 Mg/Ml Vial) 10 mg IVPUSH Q6H PRN; Protocol PRN Reason: SBP>180 Hydromorphone HCl (Hydromorphone Hcl 0.5 Mg/0.5 Ml Syringe) 0.5 mg IVPUSH Q4H PRN; Protocol PRN Reason: Pain, Severe (Pain Scale 7-10) Last Admin: 10/30/24 06:16 Dose: 0.5 mg Methylprednisolone Sodium Succinate 1,000 mg/ Sodium Chloride 66 mls @ 66 mls/hr IV DAILY [facility] Stop: 10/31/24 09:59 Insulin Human Lispro (Insulin Lispro 100 Unit/Ml 3 Ml Vial) 0 unit SUBCUT QIDACHS [facility]; Protocol Last Admin: 10/30/24 08:20 Dose: 6 unit Lidocaine (Lidocaine 4 % Patch Adh..Patch) 1 patch TRANSDERMA DAILY PRN PRN Reason: Pain Magnesium Hydroxide (Milk Of Magnesia 30 Ml Oral.Susp) 30 ml PO DAILY PRN PRN Reason: Constipation Melatonin (Melatonin 3 Mg Tablet) 6 mg PO BEDTIME PRN PRN Reason: Insomnia Nitroglycerin (Nitroglycerin 0.4 Mg Tab.Subl) 0.4 mg SUBLINGUAL Q5M PRN PRN Reason: Angina Ondansetron HCl (Ondansetron Hcl 4 Mg/2 Ml Vial) 4 mg IVPUSH Q8H PRN PRN Reason: Nausea and Vomiting Last Admin: 10/29/24 16:25 Dose: 4 mg Oxycodone HCl (Oxycodone Hcl Immed Release 5 Mg Tablet) 5 mg PO Q8H PRN PRN Reason: Pain, Moderate(Pain Scale 4-6) Sodium Chloride (0.9 % Sodium Chloride Flush 3 Ml Syringe) 3 ml IVFLUSH QSHIFT VASILE Last Admin: 10/30/24 08:21 Dose: 3 ml Home Medications ?Medication ?Instructions ?Recorded ?Confirmed ?Last Taken ?Type albuterol sulfate 90 mcg/actuation 2 puff inhalation Q6H PRN wheezing 01/15/24 10/29/24 10/28/24 History aerosol inhaler (Ventolin HFA) lidocaine 5 % topical patch 1 patch topical DAILY PRN Pain 01/15/24 10/29/24 10/28/24 History nitroglycerin 0.4 mg sublingual 0.4 mg sublingual DIRECTED PRN 01/15/24 10/29/24 10/28/24 History tablet Angina acetaminophen 325 mg tablet 650 mg PO Q4H PRN mild pain 03/11/24 10/29/24 10/28/24 History calcium carbonate (Tums) 200 mg PO TIDWM PRN Acid Reflux 07/03/24 10/29/24 10/28/24 History Physical Exam Vital Signs: Vital Signs: Last Vital Signs Temp 97.2 F 10/30/24 07:54 Pulse 84 10/30/24 07:54 Resp 20 10/30/24 07:54 BP 165/93 H 10/30/24 07:54 Pulse Ox 96 10/30/24 07:54 O2 Del Method Nasal Cannula 10/30/24 07:54 O2 Flow Rate 2 10/30/24 07:54 Oxygen Flow Rate 3 10/29/24 09:35 BMI result Body Mass Index 33.9 Neuro: Other: She is alert and awake talking to someone over the phone. He is legally blind. There was no obvious arm weakness. Speech is okay. There was no significant change in her exam from previous interaction Results Labs 10/29/24 10:06 10/30/24 01:29 Labs: Short CBC 10/29/24 Range/Units 10:06 WBC 6.0 (4.8-10.8) X10*3/uL Hgb 10.2 L (12.0-16.0) g/dl Hct 31.1 L (37.0-47.0) % Plt Count 115 L (160-400) X10*3/uL BMP 10/29/24 10/30/24 10:06 01:29 Sodium 138 136 Potassium 6.9 H* D 5.4 H D Chloride 100 99 Carbon Dioxide 18 L 22 BUN 95 H Creatinine 11.54 H* Calcium 8.7 D Liver Function 10/29/24 Range/Units 10:06 Total Bilirubin 1.6 H (0.0-1.0) mg/dL AST 38 H (5-31) U/L ALT 23 (0-31) U/L Alkaline Phosphatase 212 H (39-117) U/L Albumin 4.7 (3.5-5.0) g/dL MRI of brain without contrast revealed numerous white matter signal abnormalities somewhat suggestive of demyelinating disease. Assessment and Plan (1) Multiple sclerosis: Status: Acute 34 years old woman with complex medical and neuropsychiatric history. MRI of brain suggested chronic demyelinating disease with a additional microvascular ischemic changes. I would suggest giving her 2-3 doses of Solu-Medrol 1 g a day for possibility of MS exacerbation resulting in her symptoms. Procedures Date of Service Date of Service: 10/30/24
--- NOTE | 2024-10-30 09:48 | MHC.CM.PN ---
IMM 10/30/24, EMR REVIEWED, PT W/MS FLARE VS ACUTE STROKE, CM MET W/PT WHO IS PLEASANT REPORTS SHE CONT'S TO LIVE W/HER SISTER THOMAS, USES A TRANSFER WC MAINLY FOR MOBILITY, GRAB BARS IN BR, DIABETIC SUPPLIS AND PORTABLE O2 FROM [facility] PT USES PRN, PT HAS HD AT [facility] T//SUN, PT'S GOAL FOR DC IS HOME W/CM ARRANGING BLS TRANSPORT. PCP/HCP ON FILE VERIFIED.
[2024-10-30 10:47] LABS: Hematocrit 26.1 % (37.0-47.0); Hemoglobin 8.5 g/dl (12.0-16.0); Mean Corpuscular HGB Conc 32.6 g/dl (31.0-35.0); Mean Corpuscular Hemoglobin 31.4 pg (27.0-33.0); Mean Corpuscular Volume 96.3 fL (80.0-98.0); NRBC Abs Auto 0.000 X10*3/uL (0.0-0.012); NRBC Pct Auto 0.0 /100WBC (0.0-0.2); Platelet Count 95 X10*3/uL (160-400); Red Blood Count 2.71 X10*6/uL (4.20-5.50); White Blood Count 5.8 X10*3/uL (4.8-10.8)
[2024-10-30 11:08] LABS: Anion Gap 23 (12-20); Blood Urea Nitrogen 82 mg/dL (9-16); Calcium 7.4 mg/dL (8.4-10.2); Carbon Dioxide 20 mmol/L (22-29); Chloride 95 mmol/L (96-108); Creatinine Clr Calc Pharmacy 8.8; Estimated Glomerular Filt Rate 5; Potassium 5.1 mmol/L (3.3-5.1); Sodium 133 mmol/L (135-145)
[2024-10-30 11:18] LABS: Glucose, Whole Blood 258 mg/dL (60-115)
[2024-10-30 11:33] VITALS: BP 163/93; PULSE 84; RESP 20; TEMP 36.1; O2SAT 92
--- NOTE | 2024-10-30 11:37 | MHC.CM.PN ---
PREVIOUS CHART REVIUEWED PT REPORTED SHE DID NOT GET THE NEW MED FOR HER MS, PER NEURO CONSULT FROM LAST ADMIT THEY RECOMMENDED [facility] 7MG PO DAILY TO START OUTPT, CM CONTACTED [facility] LIAISON [phone] EXT [phone], LIAISON REPORTS [facility] WILL NEED A PRIOR AUTH/[facility] IS EXPENSIVE AND WILL EMAIL CM FORM.
--- NOTE | 2024-10-30 12:42 | HO.WOUND ---
Wound Consult: Initial 34yr old female admitted to [facility] [place] on 10/29/24 - See progress notes and H&P for detailed history.? This patient is known to this marketing writer for frequent readmissions see chart for history.? Wound consult for Bilateral lower foot wounds.? Wound assessed today and detailed below. Left Heel? - Diabetic Wound - almost fully resurfaced tissue - no topical recommendations applied elevate heels off of bed surface with pillows. Do not apply foam dressing to heels. Left Plantar Diabetic Wound? - chronic open wound - no sough noted - thick dry callus to wound edge - recommend Durafiber AG - Request General Surg to assess for debridement of thick callused tissue Left Lateral Foot with dark pigmentation changes - noted in past - no open tissue noted - recommend protecting from pressure and friction. Right Plantar Diabetic Wound? -open chronic wound bed dry red wound bed - recommend Durafiber AG Bilateral Dorsal Diabetic Wound? - open tissue loss -pale pink clean wound bed - recommend Durafiber AG Right Heel - Dry thin resurfacing scab noted on admission. No topical interventions needed at this time off load pressure from surface of bed with pillows. Recommendations: 1. Turn and Reposition every 2 hours and as needed for patient comfort.? Use pillows or wedges to support off loading positions. 2. Off Load all bony prominences with use of pillows and heel boots if needed.? Apply Preventative foams where needed. ? 3. Monitor for incontinence and moisture control, use barrier creams when needed for prevention and treatment. 4. Provide adequate and supplemental nutrition.? 5. Order low air loss mattress. 6. When applicable maintain blood glucose levels per Providers order. Left foot and Right Foot open wounds - Elevate heels off of bed surface with pillows.? Cleanse with saline, pat dry. ?Apply Durafiber to the wound bed cover with dry gauze ABD pad and wrap. change every other day. Re-consult wound care Nurse for wound deterioration or wound changes.
--- NOTE | 2024-10-30 14:09 | PM.CNGS ---
History of Present Illness Consult details Consult date: 10/30/24 <Regino Sauceda PA-C - Last Filed: 10/30/24 14:19> Reason for consult: wound care (left foot wound) <Regino Sauceda PA-C - Last Filed: 10/30/24 14:19> Narrative: 34 year old female seen in consult for possible debridement of a left foot wound. This wound has been present for a long time, most recent debridement was in july 2024. She states it does cause her pain and she would like to have it debrided in the OR rather than the bedside due to pain. <Regino Sauceda PA-C - Last Filed: 10/30/24 14:19> [facility] Past Medical History Medical History: Medical History (Updated 10/30/24 @ 14:13 by Regino Sauceda PA-C) Cerebral infarction Hyperkalemia ESRD on dialysis Hypoxia End stage renal disease on dialysis Chronic ulcer of right foot due to diabetes mellitus Chronic ulcer of left foot due to diabetes mellitus DM foot ulcer ESRD on hemodialysis Hypotonic neurogenic bladder Diabetic polyneuropathy Hypertensive emergency Decompensated heart failure Renal failure Hypertension, uncontrolled Medical non-compliance Pericarditis Unspecified hypertension, condition or complication Metabolic acidosis Gastroparesis End stage chronic kidney disease Chronic kidney disease Anemia Plantar ulcer of left foot MDD (major depressive disorder) CKD (chronic kidney disease) Hypertension Vomiting Chronic pain Non-compliance with renal dialysis End-stage renal disease (ESRD) Diabetic foot ulcer associated with type 2 diabetes mellitus Cardiomyopathy HFrEF (heart failure with reduced ejection fraction) delivery delivered Anemia in chronic kidney disease (CKD) CKD (chronic kidney disease) Abnormal finding on echocardiogram Elevated troponin Acute worsening of stage 3 chronic kidney disease Generalized edema Sepsis Cellulitis Pleural effusion Atypical chest pain Bone infection PAD (peripheral artery disease) Cellulitis and abscess of foot Osteomyelitis Asthma Depression with anxiety Diabetic retinopathy Blind right eye Diabetes Back pain <Regino Sauceda PA-C - Last Filed: 10/30/24 14:19> Family History Family History: Family History Mother Coronary artery disease Myocardial infarction Stroke Diabetes mellitus Father Myocardial infarction <Regino Sauceda PA-C - Last Filed: 10/30/24 14:19> Surgical History Surgical History: Surgical History Tubal ligation status Previous section Hx laparoscopic cholecystectomy Hx of surgical procedure (~09/11/23) 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 <LEXA Gomez Last Filed: 10/30/24 14:19> Social History Social History: Social History Household Members: Family and Children Household Members Other:: sister, brother, [id number] Housing: Apartment Housing Other:: Apartment, 1st floor Are you a primary personal care aid to a significant other at home: No Do you presently have visiting nurse or other home services: No Unable to assess alcohol history related to: Unknown Alcohol intake: never Comment: refused camera Patient Tobacco Use Status: Never used Tobacco Smoked in Last 30 Days: No e-Cigarette/Vaping Use: Never Used Second Hand Smoke Exposure: No Use of substances other than those prescribed or required for medical reasons: No Have you been hit, kicked, punched, or otherwise hurt by someone within the past year? If so, by whom?: No Do you feel safe in your current relationship?: Yes Is there a partner from a previous relationship who is making you feel unsafe now?: No Are you made to feel afraid or neglected: No Spiritual Healthcare Practices: none Advance Directives: Yes Advance Directives on File: Yes Advance Directives Date on File: 08/28/23 Do you have a plan to hurt others: No Plan Recently lost weight without trying: No Nutrition Risks: No Nutritional Risk Patient : No : No Poor oral hygiene: Yes service: No Current occupational status: unemployed and disabled Gender identity: Female <LEXA Gomez Last Filed: 10/30/24 14:19> Meds Allergies/Adverse reactions: Allergies Allergy/AdvReac Type Severity Reaction Status Date / Time gabapentin Allergy Severe Facial Verified 10/29/24 09:37 Swelling tramadol Allergy Severe Facial Verified 10/29/24 09:37 Swelling vancomycin Allergy Severe Anaphylaxis Verified 10/29/24 09:37 azithromycin (From Zithromax) Allergy Intermediate Hives Verified 10/29/24 09:37 morphine (MORPHINE) Allergy Intermediate Itching Verified 10/29/24 09:37 <LEXA Gomez Filed: 10/30/24 14:19> Active Medications: Current Medications Acetaminophen (Acetaminophen 325 Mg Tablet) 650 mg PO Q6H PRN PRN Reason: Pain, Mild 1-3,fever,headache Albuterol Sulfate (Albuterol Sulfate 90 Mcg 8 Gm Inhaler) 2 puff INHALE Q6H PRN PRN Reason: Wheezing Calcium Carbonate (Calcium Carbonate 750 Mg Tab.Chew) 750 mg PO TIDWM PRN PRN Reason: Acid Reflux Calcium Carbonate (Calcium Carbonate 750 Mg Tab.Chew) 750 mg PO Q4H PRN PRN Reason: Heartburn Carvedilol (Carvedilol 12.5 Mg Tablet) 12.5 mg PO BID [facility]; Protocol Last Admin: 10/30/24 08:21 Dose: Not Given Dextrose (Dextrose 50 % 25 Gm/50 Ml Syringe) 25 gm IVPUSH Q15M PRN; Protocol PRN Reason: per Hypoglycemia Standing Ord. Glucose (Glucose Gel 15 Gm Gel..Gram.) 15 gm PO Q15M PRN; Protocol PRN Reason: per Hypoglycemia Standing Ord. Heparin Sodium (Porcine) (Heparin Sodium,Porcine 5,000 Unit/Ml Vial) 5,000 unit SUBCUT Q8H [facility] Last Admin: 10/30/24 06:18 Dose: Not Given Hydralazine HCl (Hydralazine Hcl 50 Mg Tablet) 50 mg PO TID [facility]; Protocol Last Admin: 10/30/24 08:21 Dose: Not Given Hydralazine HCl (Hydralazine Hcl 20 Mg/Ml Vial) 10 mg IVPUSH Q6H PRN; Protocol PRN Reason: SBP>180 Hydromorphone HCl (Hydromorphone Hcl 0.5 Mg/0.5 Ml Syringe) 0.5 mg IVPUSH Q4H PRN; Protocol PRN Reason: Pain, Severe (Pain Scale 7-10) Last Admin: 10/30/24 10:47 Dose: 0.5 mg Methylprednisolone Sodium Succinate 1,000 mg/ Sodium Chloride 66 mls @ 66 mls/hr IV DAILY [facility] Stop: 10/31/24 09:59 Insulin Human Lispro (Insulin Lispro 100 Unit/Ml 3 Ml Vial) 0 unit SUBCUT QIDACHS [facility]; Protocol Last Admin: 10/30/24 11:38 Dose: 6 unit Lidocaine (Lidocaine 4 % Patch Adh..Patch) 1 patch TRANSDERMA DAILY PRN PRN Reason: Pain Magnesium Hydroxide (Milk Of Magnesia 30 Ml Oral.Susp) 30 ml PO DAILY PRN PRN Reason: Constipation Melatonin (Melatonin 3 Mg Tablet) 6 mg PO BEDTIME PRN PRN Reason: Insomnia Nitroglycerin (Nitroglycerin 0.4 Mg Tab.Subl) 0.4 mg SUBLINGUAL Q5M PRN PRN Reason: Angina Ondansetron HCl (Ondansetron Hcl 4 Mg/2 Ml Vial) 4 mg IVPUSH Q8H PRN PRN Reason: Nausea and Vomiting Last Admin: 10/30/24 09:48 Dose: 4 mg Oxycodone HCl (Oxycodone Hcl Immed Release 5 Mg Tablet) 5 mg PO Q8H PRN PRN Reason: Pain, Moderate(Pain Scale 4-6) Sodium Chloride (0.9 % Sodium Chloride Flush 3 Ml Syringe) 3 ml IVFLUSH QSHIFT [facility] Last Admin: 10/30/24 08:21 Dose: 3 ml <Regino Sauceda PA-C - Last Filed: 10/30/24 14:19> Home medications: Home Medications ?Medication ?Instructions ?Recorded ?Confirmed ?Last Taken ?Type albuterol sulfate 90 mcg/actuation 2 puff inhalation Q6H PRN wheezing 01/15/24 10/29/24 10/28/24 History aerosol inhaler (Ventolin HFA) lidocaine 5 % topical patch 1 patch topical DAILY PRN Pain 01/15/24 10/29/24 10/28/24 History nitroglycerin 0.4 mg sublingual 0.4 mg sublingual DIRECTED PRN 01/15/24 10/29/24 10/28/24 History tablet Angina acetaminophen 325 mg tablet 650 mg PO Q4H PRN mild pain 03/11/24 10/29/24 10/28/24 History calcium carbonate (Tums) 200 mg PO TIDWM PRN Acid Reflux 07/03/24 10/29/24 10/28/24 History <Regino Sauceda PA-C - Last Filed: 10/30/24 14:19> Physical Exam Vital Signs: Vital Signs: Last Vital Signs Temp 97.0 F 10/30/24 11:33 Pulse 84 10/30/24 11:33 Resp 20 10/30/24 11:33 BP 163/93 H 10/30/24 11:33 Pulse Ox 92 10/30/24 11:33 O2 Del Method Nasal Cannula 10/30/24 11:33 O2 Flow Rate 2 10/30/24 11:33 Oxygen Flow Rate 3 10/29/24 09:35 BMI result Body Mass Index 33.9 <LEXA Gomez Last Filed: 10/30/24 14:19> Const: General: no acute distress <LEXA Gomez Last Filed: 10/30/24 14:19> Orientation/consciousness: patient oriented x3 <LEXA Gomez Last Filed: 10/30/24 14:19> Resp: Effort & Inspection: normal respiratory effort and able to speak in complete sentences <LEXA Gomez Last Filed: 10/30/24 14:19> Skin: Other: left foot: 1.5x1.5 cm wound on the plantar aspect of the left foot. with some areas of necrosis. There is a thick callous that when palpated drains some thick purulent fluid. Very painful to the touch. <LEXA Gomez Last Filed: 10/30/24 14:19> Neuro: General: patient oriented x3 <LEXA Gomez Last Filed: 10/30/24 14:19> Results Labs Result diagrams: 10/30/24 10:35 10/30/24 10:35 <LEXA Gomez Last Filed: 10/30/24 14:19> Labs: Abnormal lab results 10/29/24 10/29/24 10/30/24 Range/Units 16:05 21:31 01:29 RBC (4.20-5.50) X10*6/uL Hgb (12.0-16.0) g/dl Hct (37.0-47.0) % Plt Count (160-400) X10*3/uL MPV (9.4-12.3) fL Sodium (135-145) mmol/L Potassium 5.4 H D (3.3-5.1) mmol/L Chloride (96-108) mmol/L Carbon Dioxide (22-29) mmol/L Anion Gap (12-20) BUN (9-16) mg/dL Creatinine (0.5-1.4) mg/dL POC Glucose 116 H 383 H* (60-115) mg/dL Random Glucose (60-115) mg/dL Calcium (8.4-10.2) mg/dL 10/30/24 10/30/24 10/30/24 Range/Units 07:38 10:35 11:00 RBC 2.71 L (4.20-5.50) X10*6/uL Hgb 8.5 L (12.0-16.0) g/dl Hct 26.1 L (37.0-47.0) % Plt Count 95 L (160-400) X10*3/uL MPV 13.0 H (9.4-12.3) fL Sodium 133 L (135-145) mmol/L Potassium (3.3-5.1) mmol/L Chloride 95 L (96-108) mmol/L Carbon Dioxide 20 L (22-29) mmol/L Anion Gap 23 H (12-20) BUN 82 H (9-16) mg/dL Creatinine 8.81 H* (0.5-1.4) mg/dL POC Glucose 279 H 258 H (60-115) mg/dL Random Glucose 303 H (60-115) mg/dL Calcium 7.4 L D (8.4-10.2) mg/dL Short CBC 10/30/24 Range/Units 10:35 WBC 5.8 (4.8-10.8) X10*3/uL Hgb 8.5 L (12.0-16.0) g/dl Hct 26.1 L (37.0-47.0) % Plt Count 95 L (160-400) X10*3/uL BMP 10/30/24 10/30/24 01:29 10:35 Sodium 136 133 L Potassium 5.4 H D 5.1 Chloride 99 95 L Carbon Dioxide 22 20 L BUN 82 H Creatinine 8.81 H* Calcium 7.4 L D All other labs normal. <Regino Sauceda PA-C - Last Filed: 10/30/24 14:19> Assessment and Plan (1) Plantar ulcer of left foot: Qualifiers: Non-pressure ulcer stage: unspecified non-pressure ulcer stage Qualified Code(s): L97.529 - Non-pressure chronic ulcer of other part of left foot with unspecified severity <Regino Sauceda PA-C - Last Filed: 10/30/24 14:19> Status: Acute <Regino Sauceda PA-C - Last Filed: 10/30/24 14:19> She is well known to me because of multiple debridement in the past She has had amputations as well of the toes She was admitted yesterday because of a hyperkalemia with a missed dialysis, headache and left-sided weakness Neurologic workup is unremarkable She does have a new diagnosis of MS She has this pain and tenderness on the callus on the plantar aspect of the left foot again This is about out 2 cm thick callus with nonviable tissue She wants this excised under anesthesia I reviewed the technique of this procedure and explained the risks, benefits, and alternatives She says she is familiar with the procedure as she has had this before any times We will see if we can squeeze her in on the OR schedule for tomorrow I have seen the patient and examined her independently <Tu Rajput MD - Last Filed: 10/30/24 16:05> 34-year-old female with a PMH significant for?ESRD on HD //Sun, [id number] 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 Patient seen in consult for left foot wound. She is well known to the service. Most recently had a debridement of this wound in July of 2024. I discussed this case with the wound care nurse Minda barnes believes that she would benefit from debridement due to the thick callus on the wound edge that is holding in some thick purulent fluid. On exam there was about a 1.5 x 1.5 cm chronic open wound on the plantar aspect of the left foot. There is a thick callus around the wound border and there does appear to be some thick purulent discharge that was able to be expressed it has been palpated. Had plan to debride this at bedside however the patient declined for bedside debridement due to pain, she would prefer to have this debrided in the OR. We will add this on to add on scheduled for tomorrow. She is agreeable to this plan. <Regino Sauceda PA-C - Last Filed: 10/30/24 14:19> Procedures Date of Service Date of Service: 10/30/24 <Regino Sauceda PA-C - Last Filed: 10/30/24 14:19> 10/30/24 <Tu Rajput MD - Last Filed: 10/30/24 16:05>
[2024-10-30 15:30] LABS: Glucose, Whole Blood 239 mg/dL (60-115)
[2024-10-30 15:36] VITALS: BP 194/90; PULSE 95; RESP 18; TEMP 36.2; O2SAT 94
[2024-10-30] MEDS: methylPREDNISolone Sod Succ 1,000 MG in 0.9 % Sodium Chloride 50 ML 66 MG IV (15:41)
--- NOTE | 2024-10-30 16:04 | HO.PM.IMPN ---
Subjective Subjective Date of Service: 10/30/24 Interval History: RUE weakness resolved c/o itching no fever Review of Systems Review of Systems: Yes all other systems are reviewed and are negative Physical Exam Vital Signs: Vital Signs: Last Vital Signs Temp 97.2 F 10/30/24 15:36 Pulse 95 10/30/24 15:36 Resp 18 10/30/24 15:36 BP 194/90 H 10/30/24 15:36 Pulse Ox 94 10/30/24 15:36 O2 Del Method Nasal Cannula 10/30/24 15:36 O2 Flow Rate 2 10/30/24 15:36 Oxygen Flow Rate 3 10/29/24 09:35 BMI result Body Mass Index 33.9 Gen: in no acute distress HEENT: sclera anicteric, moist mucus membranes Neck: supple Lungs: clear to auscultation bilaterally Heart: regular rate and rhythm, no murmurs Abd: soft, non-tender, non-distended Ext: no edema, bilateral TMAs Skin: warm/well-perfused Neuro: alert and oriented x3, blind, no focal weakness Psych: appropriate affect Objective Data Active Medications Acetaminophen (Acetaminophen 325 Mg Tablet) 650 mg PO Q6H PRN PRN Reason: Pain, Mild 1-3,fever,headache Albuterol Sulfate (Albuterol Sulfate 90 Mcg 8 Gm Inhaler) 2 puff INHALE Q6H PRN PRN Reason: Wheezing Calcium Carbonate (Calcium Carbonate 750 Mg Tab.Chew) 750 mg PO TIDWM PRN PRN Reason: Acid Reflux Calcium Carbonate (Calcium Carbonate 750 Mg Tab.Chew) 750 mg PO Q4H PRN PRN Reason: Heartburn Carvedilol (Carvedilol 12.5 Mg Tablet) 12.5 mg PO BID [facility]; Protocol Last Admin: 10/30/24 08:21 Dose: Not Given Documented By: CHET Non-Admin Reason: Patient Refused Dextrose (Dextrose 50 % 25 Gm/50 Ml Syringe) 25 gm IVPUSH Q15M PRN; Protocol PRN Reason: per Hypoglycemia Standing Ord. Glucose (Glucose Gel 15 Gm Gel..Gram.) 15 gm PO Q15M PRN; Protocol PRN Reason: per Hypoglycemia Standing Ord. Heparin Sodium (Porcine) (Heparin Sodium,Porcine 5,000 Unit/Ml Vial) 5,000 unit SUBCUT Q8H [facility] Last Admin: 10/30/24 15:41 Dose: Not Given Documented By: CHET Non-Admin Reason: Patient Refused Hydralazine HCl (Hydralazine Hcl 50 Mg Tablet) 50 mg PO TID [facility]; Protocol Last Admin: 10/30/24 15:40 Dose: 50 mg Documented By: CHET Hydralazine HCl (Hydralazine Hcl 20 Mg/Ml Vial) 10 mg IVPUSH Q6H PRN; Protocol PRN Reason: SBP>180 Last Admin: 10/30/24 15:40 Dose: 10 mg Documented By: CHET Hydromorphone HCl (Hydromorphone Hcl 0.5 Mg/0.5 Ml Syringe) 0.5 mg IVPUSH Q4H PRN; Protocol PRN Reason: Pain, Severe (Pain Scale 7-10) Last Admin: 10/30/24 15:41 Dose: 0.5 mg Documented By: CHET Methylprednisolone Sodium Succinate 1,000 mg/ Sodium Chloride 66 mls @ 66 mls/hr IV DAILY [facility] Stop: 10/31/24 09:59 Last Admin: 10/30/24 15:41 Dose: 66 mls/hr Documented By: CHET Insulin Human Lispro (Insulin Lispro 100 Unit/Ml 3 Ml Vial) 0 unit SUBCUT QIDACHS [facility]; Protocol Last Admin: 10/30/24 15:41 Dose: 4 unit Documented By: CHET Lidocaine (Lidocaine 4 % Patch Adh..Patch) 1 patch TRANSDERMA DAILY PRN PRN Reason: Pain Magnesium Hydroxide (Milk Of Magnesia 30 Ml Oral.Susp) 30 ml PO DAILY PRN PRN Reason: Constipation Melatonin (Melatonin 3 Mg Tablet) 6 mg PO BEDTIME PRN PRN Reason: Insomnia Nitroglycerin (Nitroglycerin 0.4 Mg Tab.Subl) 0.4 mg SUBLINGUAL Q5M PRN PRN Reason: Angina Ondansetron HCl (Ondansetron Hcl 4 Mg/2 Ml Vial) 4 mg IVPUSH Q8H PRN PRN Reason: Nausea and Vomiting Last Admin: 10/30/24 09:48 Dose: 4 mg Documented By: CHET Oxycodone HCl (Oxycodone Hcl Immed Release 5 Mg Tablet) 5 mg PO Q8H PRN PRN Reason: Pain, Moderate(Pain Scale 4-6) Sodium Chloride (0.9 % Sodium Chloride Flush 3 Ml Syringe) 3 ml IVFLUSH QSHIFT [facility] Last Admin: 10/30/24 16:01 Dose: Not Given Documented By: CHET Non-Admin Reason: IV Running Labs 10/30/24 10:35 10/30/24 10:35 Labs: Laboratory Results - last 24 hr 10/29/24 10/29/24 10/30/24 16:05 21:31 01:29 MCV MCH MCHC RDW Plt Count MPV Absolute Nucleated RBC Nucleated RBC % (auto) Anion Gap 20 Estim Creat Clear Calc Estimated GFR POC Glucose 116 H 383 H* Random Glucose Calcium 10/30/24 10/30/24 10/30/24 07:38 10:35 11:00 MCV 96.3 MCH 31.4 MCHC 32.6 RDW 14.3 Plt Count 95 L MPV 13.0 H Absolute Nucleated RBC 0.000 Nucleated RBC % (auto) 0.0 Anion Gap 23 H Estim Creat Clear Calc 8.8 Estimated GFR 5 POC Glucose 279 H 258 H Random Glucose 303 H Calcium 7.4 L D 10/30/24 15:24 MCV MCH MCHC RDW Plt Count MPV Absolute Nucleated RBC Nucleated RBC % (auto) Anion Gap Estim Creat Clear Calc Estimated GFR POC Glucose 239 H Random Glucose Calcium Assessment and Plan (1) Multiple sclerosis: Status: Acute Plan d2 34yo F with ESRD on HD [facility], DM2 with polyneuropathy/retinopathy + legal blindness, PAD s/p bilateral TMA, chronic hypoxia on 3-4L O2, chronic HFrEF, multiple HD catheter line infections with MSSA/Stenotrophomonas/Pseudomonas, mood disorder, and chronic pain with opioid-seeking behavior; recently diagnosed MS presenting with R-sided weakness + MENDIOLA concerning for MS flare, also found to have hyperK MS flare - per Neuro, 3 days of high-dose IV Solu-medrol; weakness resolved - MRI with chronic demyelinating disease; no new acute lesions hyperK due to missed HD - HD yesterday and again today, K 6.9->5.4, recheck tomorrow, Nephrology following HTN urgency - resolving with carvedilol + hydralazine ESRD on HD with hx noncompliance - HD [facility] [[facility] pt] - missed HD Sunday due to court appearance DM2 - correction-dose lispro chronic hypoxia - 3-4L O2 via [place] chronic HFrEF - carvedilol, HD to manage volume chronic pain syndrome - oxycodone, minimize IV Dilaudid VTE ppx - UFH dispo - anticipate home with VNA after steroid treatment and hyperK resolves In my clinical judgment, the patient requires continued inpatient hospitalization for the following reasons: IV steroids, hyperK Quality Stroke Does the patient have a stroke diagnosis?: No VTE Prior VTE?: No VTE Risk Level:: Medical - moderate - high VTE Device Contraindication: Treatment Not Indicated VTE Drug Contraindication: N/A - Med Ordered
[2024-10-30 16:42] VITALS: BP 164/88
[2024-10-30 19:44] VITALS: BP 182/98; PULSE 92; RESP 16; O2SAT 97
[2024-10-30 19:53] LABS: Glucose, Whole Blood 363 mg/dL (60-115)
[2024-10-31] VITALS (10 sets, daily range): BP systolic 146–183; BP diastolic 78–86; PULSE 76–91; RESP 16–20; TEMP 36.1–36.7; O2SAT 90–100
--- NOTE | 2024-10-31 06:15 | P.CONNP_ITS ---
History of Present Illness Reason for Consult Consult date: 11/03/24 Reason for consult: ESRD Chief Complaint Chief complaint: Missed dialysis History of Present Illness Narrative: Seen and examiend, leonardo noted Review of Systems Review of Systems No recent seizure-like episode cold or flu Yes all other systems are reviewed and are negative [facility] Past Medical History Medical History Multiple sclerosis Cerebral infarction Hyperkalemia ESRD on dialysis Hypoxia End stage renal disease on dialysis Chronic ulcer of right foot due to diabetes mellitus Chronic ulcer of left foot due to diabetes mellitus DM foot ulcer ESRD on hemodialysis Hypotonic neurogenic bladder Diabetic polyneuropathy Hypertensive emergency Decompensated heart failure Renal failure Hypertension, uncontrolled Medical non-compliance Pericarditis Unspecified hypertension, condition or complication Metabolic acidosis Gastroparesis End stage chronic kidney disease Chronic kidney disease Anemia Plantar ulcer of left foot MDD (major depressive disorder) CKD (chronic kidney disease) Hypertension Vomiting Chronic pain Non-compliance with renal dialysis End-stage renal disease (ESRD) Diabetic foot ulcer associated with type 2 diabetes mellitus Cardiomyopathy HFrEF (heart failure with reduced ejection fraction) delivery delivered Anemia in chronic kidney disease (CKD) CKD (chronic kidney disease) Abnormal finding on echocardiogram Elevated troponin Acute worsening of stage 3 chronic kidney disease Generalized edema Sepsis Cellulitis Pleural effusion Atypical chest pain Bone infection PAD (peripheral artery disease) Cellulitis and abscess of foot Osteomyelitis Asthma Depression with anxiety Diabetic retinopathy Blind right eye Diabetes Back pain Family History Family History Mother Coronary artery disease Myocardial infarction Stroke Diabetes mellitus Father Myocardial infarction Surgical History Surgical History Tubal ligation status Previous section Hx laparoscopic cholecystectomy Hx of surgical procedure (~09/11/23) 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 Social History Social History Household Members: Family and Children Household Members Other:: sister, brother, [id number] Housing: Apartment Housing Other:: Apartment, 1st floor Are you a primary direct care professional to a significant other at home: No Do you presently have visiting nurse or other home services: No Unable to assess alcohol history related to: Unknown Alcohol intake: never Comment: refused camera Patient Tobacco Use Status: Never used Tobacco Smoked in Last 30 Days: No e-Cigarette/Vaping Use: Never Used Second Hand Smoke Exposure: No Use of substances other than those prescribed or required for medical reasons: No Currently Displaying Signs/Symptoms of Drug Intoxication Withdrawal: No Have you been hit, kicked, punched, or otherwise hurt by someone within the past year? If so, by whom?: No Do you feel safe in your current relationship?: Yes Is there a partner from a previous relationship who is making you feel unsafe now?: No Are you made to feel afraid or neglected: No Spiritual Healthcare Practices: none Are you DNR?: No Advance Directives: Yes Advance Directives Information Provided: No Advance Directives on File: Yes Advance Directives Date on File: 08/28/23 Do you have a plan to hurt others: No Plan Recently lost weight without trying: No Nutrition Risks: No Nutritional Risk Patient : No : No Poor oral hygiene: No service: No Current occupational status: unemployed and disabled Gender identity: Female Meds Allergies Allergy/AdvReac Type Severity Reaction Status Date / Time gabapentin Allergy Severe Facial Verified 10/29/24 09:37 Swelling tramadol Allergy Severe Facial Verified 10/29/24 09:37 Swelling vancomycin Allergy Severe Anaphylaxis Verified 10/29/24 09:37 azithromycin (From Zithromax) Allergy Intermediate Hives Verified 10/29/24 09:37 morphine (MORPHINE) Allergy Intermediate Itching Verified 10/29/24 09:37 Active Medications: Current Medications Acetaminophen (Acetaminophen 325 Mg Tablet) 650 mg PO Q6H PRN PRN Reason: Pain, Mild 1-3,fever,headache Albuterol Sulfate (Albuterol Sulfate 90 Mcg 8 Gm Inhaler) 2 puff INHALE Q6H PRN PRN Reason: Wheezing Calcium Carbonate (Calcium Carbonate 750 Mg Tab.Chew) 750 mg PO TIDWM PRN PRN Reason: Acid Reflux Calcium Carbonate (Calcium Carbonate 750 Mg Tab.Chew) 750 mg PO Q4H PRN PRN Reason: Heartburn Carvedilol (Carvedilol 12.5 Mg Tablet) 12.5 mg PO BID [facility]; Protocol Last Admin: 10/30/24 19:48 Dose: 12.5 mg Dextrose (Dextrose 50 % 25 Gm/50 Ml Syringe) 25 gm IVPUSH Q15M PRN; Protocol PRN Reason: per Hypoglycemia Standing Ord. Glucose (Glucose Gel 15 Gm Gel..Gram.) 15 gm PO Q15M PRN; Protocol PRN Reason: per Hypoglycemia Standing Ord. Heparin Sodium (Porcine) (Heparin Sodium,Porcine 5,000 Unit/Ml Vial) 5,000 unit SUBCUT Q8H [facility] Last Admin: 10/31/24 04:47 Dose: Not Given Hydralazine HCl (Hydralazine Hcl 50 Mg Tablet) 50 mg PO TID [facility]; Protocol Last Admin: 10/30/24 19:48 Dose: 50 mg Hydralazine HCl (Hydralazine Hcl 20 Mg/Ml Vial) 10 mg IVPUSH Q6H PRN; Protocol PRN Reason: SBP>180 Last Admin: 10/30/24 15:40 Dose: 10 mg Hydromorphone HCl (Hydromorphone Hcl 0.5 Mg/0.5 Ml Syringe) 0.5 mg IVPUSH Q4H PRN; Protocol PRN Reason: Pain, Severe (Pain Scale 7-10) Last Admin: 10/31/24 04:19 Dose: 0.5 mg Methylprednisolone Sodium Succinate 1,000 mg/ Sodium Chloride 66 mls @ 66 mls/hr IV DAILY [facility] Stop: 10/31/24 09:59 Last Infusion: 10/30/24 17:18 Dose: Infused Insulin Human Lispro (Insulin Lispro 100 Unit/Ml 3 Ml Vial) 0 unit SUBCUT QIDACHS [facility]; Protocol Last Admin: 10/30/24 19:53 Dose: 10 unit Lidocaine (Lidocaine 4 % Patch Adh..Patch) 1 patch TRANSDERMA DAILY PRN PRN Reason: Pain Magnesium Hydroxide (Milk Of Magnesia 30 Ml Oral.Susp) 30 ml PO DAILY PRN PRN Reason: Constipation Melatonin (Melatonin 3 Mg Tablet) 6 mg PO BEDTIME PRN PRN Reason: Insomnia Nitroglycerin (Nitroglycerin 0.4 Mg Tab.Subl) 0.4 mg SUBLINGUAL Q5M PRN PRN Reason: Angina Ondansetron HCl (Ondansetron Hcl 4 Mg/2 Ml Vial) 4 mg IVPUSH Q8H PRN PRN Reason: Nausea and Vomiting Last Admin: 10/30/24 09:48 Dose: 4 mg Oxycodone HCl (Oxycodone Hcl Immed Release 5 Mg Tablet) 5 mg PO Q8H PRN PRN Reason: Pain, Moderate(Pain Scale 4-6) Sodium Chloride (0.9 % Sodium Chloride Flush 3 Ml Syringe) [facility] Last Admin: 10/30/24 19:54 Dose: 3 ml Home Medications ?Medication ?Instructions ?Recorded ?Confirmed ?Last Taken ?Type albuterol sulfate 90 mcg/actuation 2 puff inhalation Q 6H PRN wheezing 01/15/24 10/29/24 10/28/24 History aerosol inhaler (Ventolin HFA) lidocaine 5 % topical patch 1 patch topical DAILY PRN Pain 01/15/24 10/29/24 10/28/24 History nitroglycerin 0.4 mg sublingual 0.4 mg sublingual D IRECTED PRN 01/15/24 10/29/24 10/28/24 History tablet Angina acetaminophen 325 mg tablet 650 mg PO Q4H PRN mild jamar n 03/11/24 10/29/24 10/28/24 History calcium carbonate (Tums) 200 mg PO TIDWM PRN Acid Ref lux 07/03/24 10/29/24 10/28/24 History Physical Exam Vital Signs: Last Vital Signs Temp 97.6 F 10/31/24 03:25 Pulse 85 10/31/24 03:25 Resp 16 10/31/24 03:25 BP 173/85 H 10/31/24 03:25 Pulse Ox 94 10/31/24 03:25 O2 Del Method Nasal Cannula 10/31/24 03:25 O2 Flow Rate 2 10/31/24 03:25 Oxygen Flow Rate 3 10/29/24 09:35 BMI result Body Mass Index 33.9 Const General: cooperative and no acute distress Orientation/consciousness: patient oriented x3 Limitations: No language barrier HEENT Head: Yes normal to inspection Face and sinus: Yes normal facial exam Mouth: Normal oral and palatal mucosa present Teeth and gingiva: dentition normal Eyes General: appearance normal, both eyes and all related structures Pupils: Equal, round and reactive pupils present Resp Effort & Inspection: normal respiratory effort and able to speak in complete sentences Cardio Rate: regular rate Rhythm: regular rhythm GI Palpation (GI): Soft to palpation and nontender General: Yes no CVA tenderness Back/Spine/Pelvis Back: no CVA tenderness Skin Other: left foot: 1.5x1.5 cm wound on the plantar aspect of the left foot. with some areas of necrosis. There is a thick callous without drainage. Very painful to the touch. superficial open wound on the dorsum of the right foot. scant bloody drainage. General skin exam: no rashes or lesions noted Neuro Other: She is alert and awake talking to someone over the phone. He is legally blind. There was no obvious arm weakness. Speech is okay. There was no significant change in her exam from previous interaction General: patient oriented x3 and moves all extremities Cranial nerves: Yes Equal, round and reactive pupils present Extrem General: Yes normal to inspection Psych Appearance: grossly normal Results Lab Results 10/30/24 10:35 11/01/24 14:50 Lab results: Chemistry 10/29/24 10/30/24 10/30/24 10:06 01:29 10:35 Sodium 138 136 133 L Potassium 6.9 H* D 5.4 H D 5.1 Carbon Dioxide 18 L 22 20 L BUN 95 H 82 H Creatinine 11.54 H* 8.81 H* Calcium 8.7 D 7.4 L D Hematology 10/29/24 10/30/24 10:06 10:35 WBC 6.0 5.8 Hgb 10.2 L 8.5 L Plt Count 115 L 95 L Assessment and Plan (1) Renal failure: Status: Acute Plan 34yo F with ESRD on HD TuThSa, DM2 with polyneuropathy/retinopathy + legal blindness, PAD s/p bilateral TMA, chronic hypoxia on 3-4L O2, chronic HFrEF, multiple HD catheter line infections with MSSA/Stenotrophomonas/Pseudomonas, mood disorder, and chronic pain with opioid-seeking behavior; recently diagnosed MS presenting with R-sided weakness + MENDIOLA concerning for MS flare, also found to have hyperK ESRD: TTS [facility] HyperK Neuro: MS flare HTN: meds as noted Nephrogenic anemia MBD of CKD REC: cont HD TTS, cont to track labs and adj meds as noted Will follow w team Procedures Date of Service Date of Service: 11/04/24
[2024-10-31 08:21] LABS: Anion Gap 20 (12-20); Blood Urea Nitrogen 66 mg/dL (9-16); Calcium 7.1 mg/dL (8.4-10.2); Carbon Dioxide 19 mmol/L (22-29); Chloride 99 mmol/L (96-108); Potassium 4.6 mmol/L (3.3-5.1); Sodium 133 mmol/L (135-145)
[2024-10-31 08:23] LABS: Glucose, Whole Blood 410 mg/dL (60-115)
--- NOTE | 2024-10-31 08:26 | HO.ANESPROP2 ---
Documented by User: Urszula See NP 11/04/24 07:51 HPI - Anesthesia Eval Consult details Narrative: 34 yr old female for debridement of left foot wound s/p skin debridement 07/2024, GA LMA size 4 No CP/SOB, bedbound Chronic hypoxemic respiratory failure on 3-4 L baseline supplemental oxygen: O2 sat 99% on 2L 11/03/24 ESRD on dialysis: Last creat 11/01/24: 5.88 Type 2 DM: POCs were 400s after recent IV solumedrol; however improved to 180s Cardiomyopathy: recent echo 08/2024 EF 50-55% H/O CVA: head CT concerning, There is focal low attenuation in the left thalamus that is new since the prior exam raising concern for infarct , f/u.neg brain MRI. MS: seen by neuro, was advised to treat with IV solumedrol for possible MS flare, per hospitalist note from 11/02/24, weakness improved after IV solumedrol PMFSH Active Problems Active Problems: All Active Problems Multiple sclerosis exacerbation (Acute) Acute right-sided muscle weakness (Acute) Acute hyperkalemia (Acute) Relapsing remitting multiple sclerosis (Acute) Hypoglycemia (Acute) Pneumonia (Acute) Multiple sclerosis (Acute) RUE weakness (Acute) Encephalitis due to infection (Acute) Bacteremia (Acute) Acute hyperkalemia (Acute) Bacteremia (Acute) CLABSI (central line-associated bloodstream infection) (Acute) COVID-19 (Acute) Noncompliance (Acute) Back pain (Acute) Opioid dependence (Acute) Renal failure (Acute) Hyponatremia (Acute) Hyperkalemia (Acute) ESRD on dialysis (Acute) DM foot ulcer (Acute) Gastroparesis (Acute) Anemia (Acute) Plantar ulcer of left foot (Acute) PAD (peripheral artery disease) (Acute) Past Medical History Medical History Multiple sclerosis Cerebral infarction Hyperkalemia ESRD on dialysis Hypoxia End stage renal disease on dialysis Chronic ulcer of right foot due to diabetes mellitus Chronic ulcer of left foot due to diabetes mellitus DM foot ulcer ESRD on hemodialysis Hypotonic neurogenic bladder Diabetic polyneuropathy Hypertensive emergency Decompensated heart failure Renal failure Hypertension, uncontrolled Medical non-compliance Pericarditis Unspecified hypertension, condition or complication Metabolic acidosis Gastroparesis End stage chronic kidney disease Chronic kidney disease Anemia Plantar ulcer of left foot MDD (major depressive disorder) CKD (chronic kidney disease) Hypertension Vomiting Chronic pain Non-compliance with renal dialysis End-stage renal disease (ESRD) Diabetic foot ulcer associated with type 2 diabetes mellitus Cardiomyopathy HFrEF (heart failure with reduced ejection fraction) delivery delivered Anemia in chronic kidney disease (CKD) CKD (chronic kidney disease) Abnormal finding on echocardiogram Elevated troponin Acute worsening of stage 3 chronic kidney disease Generalized edema Sepsis Cellulitis Pleural effusion Atypical chest pain Bone infection PAD (peripheral artery disease) Cellulitis and abscess of foot Osteomyelitis Asthma Depression with anxiety Diabetic retinopathy Blind right eye Diabetes Back pain Family History Family History Mother Coronary artery disease Myocardial infarction Stroke Diabetes mellitus Father Myocardial infarction Family history of problems with anesthesia: No Surgical History Surgical History Tubal ligation status Previous section Hx laparoscopic cholecystectomy Hx of surgical procedure (~09/11/23) 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 History of Problems with Anesthesia: No Social History Social History Household Members: Family and Children Household Members Other:: sister, brother, [id number] Housing: Apartment Housing Other:: Apartment, 1st floor Are you a primary child day care center worker to a significant other at home: No Do you presently have visiting nurse or other home services: No Unable to assess alcohol history related to: Unknown Alcohol intake: never Comment: refused camera Patient Tobacco Use Status: Never used Tobacco Smoked in Last 30 Days: No e-Cigarette/Vaping Use: Never Used Second Hand Smoke Exposure: No Use of substances other than those prescribed or required for medical reasons: No Currently Displaying Signs/Symptoms of Drug Intoxication Withdrawal: No Have you been hit, kicked, punched, or otherwise hurt by someone within the past year? If so, by whom?: No Do you feel safe in your current relationship?: Yes Is there a partner from a previous relationship who is making you feel unsafe now?: No Are you made to feel afraid or neglected: No Spiritual Healthcare Practices: none Are you DNR?: No Advance Directives: Yes Advance Directives Information Provided: No Advance Directives on File: Yes Advance Directives Date on File: 08/28/23 Do you have a plan to hurt others: No Plan Recently lost weight without trying: No Nutrition Risks: No Nutritional Risk Patient : No : No Poor oral hygiene: No service: No Current occupational status: unemployed and disabled Gender identity: Female Meds Allergies Allergy/AdvReac Type Severity Reaction Status Date / Time gabapentin Allergy Severe Facial Verified 10/29/24 09:37 Swelling tramadol Allergy Severe Facial Verified 10/29/24 09:37 Swelling vancomycin Allergy Severe Anaphylaxis Verified 10/29/24 09:37 azithromycin (From Zithromax) Allergy Intermediate Hives Verified 10/29/24 09:37 morphine (MORPHINE) Allergy Intermediate Itching Verified 10/29/24 09:37 Active Medications: Current Medications Acetaminophen (Acetaminophen 325 Mg Tablet) 650 mg PO Q6H PRN PRN Reason: Pain, Mild 1-3,fever,headache Albuterol Sulfate (Albuterol Sulfate 90 Mcg 8 Gm Inhaler) 2 puff INHALE Q6H PRN PRN Reason: Wheezing Calcium Carbonate (Calcium Carbonate 750 Mg Tab.Chew) 750 mg PO TIDWM PRN PRN Reason: Acid Reflux Calcium Carbonate (Calcium Carbonate 750 Mg Tab.Chew) 750 mg PO Q4H PRN PRN Reason: Heartburn Carvedilol (Carvedilol 12.5 Mg Tablet) 12.5 mg PO BID [facility]; Protocol Last Admin: 10/30/24 19:48 Dose: 12.5 mg Dextrose (Dextrose 50 % 25 Gm/50 Ml Syringe) 25 gm IVPUSH Q15M PRN; Protocol PRN Reason: per Hypoglycemia Standing Ord. Glucose (Glucose Gel 15 Gm Gel..Gram.) 15 gm PO Q15M PRN; Protocol PRN Reason: per Hypoglycemia Standing Ord. Heparin Sodium (Porcine) (Heparin Sodium,Porcine 5,000 Unit/Ml Vial) 5,000 unit SUBCUT Q8H [facility] Last Admin: 10/31/24 04:47 Dose: Not Given Hydralazine HCl (Hydralazine Hcl 50 Mg Tablet) 50 mg PO TID [facility]; Protocol Last Admin: 10/30/24 19:48 Dose: 50 mg Hydralazine HCl (Hydralazine Hcl 20 Mg/Ml Vial) 10 mg IVPUSH Q6H PRN; Protocol PRN Reason: SBP>180 Last Admin: 10/30/24 15:40 Dose: 10 mg Hydromorphone HCl (Hydromorphone Hcl 0.5 Mg/0.5 Ml Syringe) 0.5 mg IVPUSH Q4H PRN; Protocol PRN Reason: Pain, Severe (Pain Scale 7-10) Last Admin: 10/31/24 04:19 Dose: 0.5 mg Methylprednisolone Sodium Succinate 1,000 mg/ Sodium Chloride 66 mls @ 66 mls/hr IV DAILY [facility] Stop: 10/31/24 09:59 Last Infusion: 10/30/24 17:18 Dose: Infused Insulin Human Lispro (Insulin Lispro 100 Unit/Ml 3 Ml Vial) 0 unit SUBCUT QIDACHS [facility]; Protocol Last Admin: 10/30/24 19:53 Dose: 10 unit Lidocaine (Lidocaine 4 % Patch Adh..Patch) 1 patch TRANSDERMA DAILY PRN PRN Reason: Pain Magnesium Hydroxide (Milk Of Magnesia 30 Ml Oral.Susp) 30 ml PO DAILY PRN PRN Reason: Constipation Melatonin (Melatonin 3 Mg Tablet) 6 mg PO BEDTIME PRN PRN Reason: Insomnia Nitroglycerin (Nitroglycerin 0.4 Mg Tab.Subl) 0.4 mg SUBLINGUAL Q5M PRN PRN Reason: Angina Ondansetron HCl (Ondansetron Hcl 4 Mg/2 Ml Vial) 4 mg IVPUSH Q8H PRN PRN Reason: Nausea and Vomiting Last Admin: 10/30/24 09:48 Dose: 4 mg Oxycodone HCl (Oxycodone Hcl Immed Release 5 Mg Tablet) 5 mg PO Q8H PRN PRN Reason: Pain, Moderate(Pain Scale 4-6) Sodium Chloride (0.9 % Sodium Chloride Flush 3 Ml Syringe) [facility] Last Admin: 10/30/24 19:54 Dose: 3 ml Home Medications ?Medication ?Instructions ?Recorded ?Confirmed ?Last Taken ?Type albuterol sulfate 90 mcg/actuation 2 puff inhalation Q6H PRN wheezing 01/15/24 10/29/24 10/28/24 History aerosol inhaler (Ventolin HFA) lidocaine 5 % topical patch 1 patch topical DAILY PRN Pain 01/15/24 10/29/24 10/28/24 History nitroglycerin 0.4 mg sublingual 0.4 mg sublingual DIRECTED PRN 01/15/24 10/29/24 10/28/24 History tablet Angina acetaminophen 325 mg tablet 650 mg PO Q4H PRN mild pain 03/11/24 10/29/24 10/28/24 History calcium carbonate (Tums) 200 mg PO TIDWM PRN Acid Reflux 07/03/24 10/29/24 10/28/24 History Exam Height,Weight and Vital Signs: Height 5 ft 2 in Weight 84.1 kg Last Vital Signs Temp 97.1 F 10/31/24 08:00 Pulse 91 10/31/24 08:00 Resp 18 10/31/24 08:00 BP 181/86 H 10/31/24 08:00 Pulse Ox 90 L 10/31/24 08:00 O2 Del Method Room Air 10/31/24 08:00 O2 Flow Rate 2 10/31/24 03:25 Oxygen Flow Rate 3 10/29/24 09:35 Pertinent Lab Results Pertinent Lab Results: Laboratory Tests 10/29/24 10/29/24 10/29/24 10:06 16:05 21:31 WBC 6.0 RBC 3.26 L Hgb 10.2 L Hct 31.1 L MCV 95.4 MCH 31.3 MCHC 32.8 RDW 14.2 Plt Count 115 L MPV 12.6 H Immature Gran % (Auto) 0.3 Neut % (Auto) 78.4 H Lymph % (Auto) 12.4 L [place] % (Auto) 5.0 Eos % (Auto) 3.2 Baso % (Auto) 0.7 Lymph # (Auto) 0.7 L [place] # (Auto) 0.3 Eos # (Auto) 0.2 Baso # (Auto) 0.0 Abs Immat Gran (auto) 0.02 Absolute Neuts (auto) 4.7 Absolute Nucleated RBC 0.000 Nucleated RBC % (auto) 0.0 Sodium 138 Potassium 6.9 H* D Chloride 100 Carbon Dioxide 18 L Anion Gap 27 H BUN 95 H Creatinine 11.54 H* Estim Creat Clear Calc 6.7 Estimated GFR 4 POC Glucose 116 H 383 H* Random Glucose 77 Calcium 8.7 D Total Bilirubin 1.6 H AST 38 H ALT 23 Alkaline Phosphatase 212 H Total Protein 9.0 H Albumin 4.7 10/30/24 10/30/24 10/30/24 01:29 07:38 10:35 WBC 5.8 RBC 2.71 L Hgb 8.5 L Hct 26.1 L MCV 96.3 MCH 31.4 MCHC 32.6 RDW 14.3 Plt Count 95 L MPV 13.0 H Immature Gran % (Auto) Neut % (Auto) Lymph % (Auto) [place] % (Auto) Eos % (Auto) Baso % (Auto) Lymph # (Auto) [place] # (Auto) Eos # (Auto) Baso # (Auto) Abs Immat Gran (auto) Absolute Neuts (auto) Absolute Nucleated RBC 0.000 Nucleated RBC % (auto) 0.0 Sodium 136 133 L Potassium 5.4 H D 5.1 Chloride 99 95 L Carbon Dioxide 22 20 L Anion Gap 20 23 H BUN 82 H Creatinine 8.81 H* Estim Creat Clear Calc 8.8 Estimated GFR 5 POC Glucose 279 H Random Glucose 303 H Calcium 7.4 L D Total Bilirubin AST ALT Alkaline Phosphatase Total Protein Albumin 10/30/24 10/30/24 10/30/24 11:00 15:24 19:49 WBC RBC Hgb Hct MCV MCH MCHC RDW Plt Count MPV Immature Gran % (Auto) Neut % (Auto) Lymph % (Auto) [place] % (Auto) Eos % (Auto) Baso % (Auto) Lymph # (Auto) [place] # (Auto) Eos # (Auto) Baso # (Auto) Abs Immat Gran (auto) Absolute Neuts (auto) Absolute Nucleated RBC Nucleated RBC % (auto) Sodium Potassium Chloride Carbon Dioxide Anion Gap BUN Creatinine Estim Creat Clear Calc Estimated GFR POC Glucose 258 H 239 H 363 H* Random Glucose Calcium Total Bilirubin AST ALT Alkaline Phosphatase Total Protein Albumin 10/31/24 10/31/24 07:40 08:14 WBC RBC Hgb Hct MCV MCH MCHC RDW Plt Count MPV Immature Gran % (Auto) Neut % (Auto) Lymph % (Auto) [place] % (Auto) Eos % (Auto) Baso % (Auto) Lymph # (Auto) [place] # (Auto) Eos # (Auto) Baso # (Auto) Abs Immat Gran (auto) Absolute Neuts (auto) Absolute Nucleated RBC Nucleated RBC % (auto) Sodium 133 L Potassium 4.6 Chloride 99 Carbon Dioxide 19 L Anion Gap 20 BUN 66 H Creatinine Estim Creat Clear Calc Estimated GFR POC Glucose 410 H* Random Glucose Calcium 7.1 L Total Bilirubin AST ALT Alkaline Phosphatase Total Protein Albumin Narrative Narrative: ECHO 08/2024 Conclusions: - Normal left ventricular cavity size. There is moderately increased left ventricular wall thickness. The left ventricular systolic function is low normal. The visually estimated ejection fraction is between 50-55%. - Mildly increased right ventricular cavity size. There is low normal right ventricular systolic function. - There is no evidence of a patent foramen ovale. EKG 10/2024 Vent. Rate : 95 BPM Atrial Rate : 95 BPM P-R Int : 158 ms QRS Dur : 176 ms QT Int : 466 ms P-R-T Axes : 59 -42 49 degrees QTcB Int : 585 ms Normal sinus rhythm Possible Left atrial enlargement Left axis deviation Right bundle branch block Abnormal ECG When compared with ECG of 06-Sep-2024 00:55, No significant change was found Brain MRI 10/29/24 IMPRESSION: 1. No evidence of acute stroke. 2. Interval change in appearance of left thalamic plaque, now has appearance of inactive plaque. 3. No significant change in the number or size of white matter abnormalities. 4. Probable inactive plaque in the right cerebellar hemisphere. Assessment and Plan Final Anesthetic Review Family History of Problems with Anesthesia: No History of Problems with Anesthesia: No Documented by User: Srikanth Fan MD 11/05/24 16:22 [facility] Past Medical History Medical History Multiple sclerosis Cerebral infarction Hyperkalemia ESRD on dialysis Hypoxia End stage renal disease on dialysis Chronic ulcer of right foot due to diabetes mellitus Chronic ulcer of left foot due to diabetes mellitus DM foot ulcer ESRD on hemodialysis Hypotonic neurogenic bladder Diabetic polyneuropathy Hypertensive emergency Decompensated heart failure Renal failure Hypertension, uncontrolled Medical non-compliance Pericarditis Unspecified hypertension, condition or complication Metabolic acidosis Gastroparesis End stage chronic kidney disease Chronic kidney disease Anemia Plantar ulcer of left foot MDD (major depressive disorder) CKD (chronic kidney disease) Hypertension Vomiting Chronic pain Non-compliance with renal dialysis End-stage renal disease (ESRD) Diabetic foot ulcer associated with type 2 diabetes mellitus Cardiomyopathy HFrEF (heart failure with reduced ejection fraction) delivery delivered Anemia in chronic kidney disease (CKD) CKD (chronic kidney disease) Abnormal finding on echocardiogram Elevated troponin Acute worsening of stage 3 chronic kidney disease Generalized edema Sepsis Cellulitis Pleural effusion Atypical chest pain Bone infection PAD (peripheral artery disease) Cellulitis and abscess of foot Osteomyelitis Asthma Depression with anxiety Diabetic retinopathy Blind right eye Diabetes Back pain Cognitive capacity: normal Family History Family History Mother Coronary artery disease Myocardial infarction Stroke Diabetes mellitus Father Myocardial infarction Surgical History Surgical History Tubal ligation status Previous section Hx laparoscopic cholecystectomy Hx of surgical procedure (~09/11/23) 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 Social History Social History Household Members: Family and Children Household Members Other:: sister, brother, [id number] Housing: Apartment Housing Other:: Apartment, 1st floor Are you a primary child day care center worker to a significant other at home: No Do you presently have visiting nurse or other home services: No Unable to assess alcohol history related to: Unknown Alcohol intake: never Comment: refused camera Patient Tobacco Use Status: Never used Tobacco Smoked in Last 30 Days: No e-Cigarette/Vaping Use: Never Used Second Hand Smoke Exposure: No Use of substances other than those prescribed or required for medical reasons: No Currently Displaying Signs/Symptoms of Drug Intoxication Withdrawal: No Have you been hit, kicked, punched, or otherwise hurt by someone within the past year? If so, by whom?: No Do you feel safe in your current relationship?: Yes Is there a partner from a previous relationship who is making you feel unsafe now?: No Are you made to feel afraid or neglected: No Spiritual Healthcare Practices: none Are you DNR?: No Advance Directives: Yes Advance Directives Information Provided: No Advance Directives on File: Yes Advance Directives Date on File: 08/28/23 Do you have a plan to hurt others: No Plan Recently lost weight without trying: No Nutrition Risks: No Nutritional Risk Patient : No : No Poor oral hygiene: No service: No Current occupational status: unemployed and disabled Gender identity: Female Meds Allergies Allergy/AdvReac Type Severity Reaction Status Date / Time gabapentin Allergy Severe Facial Verified 10/29/24 09:37 Swelling tramadol Allergy Severe Facial Verified 10/29/24 09:37 Swelling vancomycin Allergy Severe Anaphylaxis Verified 10/29/24 09:37 azithromycin (From Zithromax) Allergy Intermediate Hives Verified 10/29/24 09:37 morphine (MORPHINE) Allergy Intermediate Itching Verified 10/29/24 09:37 Home Medications ?Medication ?Instructions ?Recorded ?Confirmed ?Last Taken ?Type albuterol sulfate 90 mcg/actuation 2 puff inhalation Q6H PRN wheezing 01/15/24 10/29/24 10/28/24 History aerosol inhaler (Ventolin HFA) lidocaine 5 % topical patch 1 patch topical DAILY PRN Pain 01/15/24 10/29/24 10/28/24 History nitroglycerin 0.4 mg sublingual 0.4 mg sublingual DIRECTED PRN 01/15/24 10/29/24 10/28/24 History tablet Angina acetaminophen 325 mg tablet 650 mg PO Q4H PRN mild pain 03/11/24 10/29/24 10/28/24 History calcium carbonate (Tums) 200 mg PO TIDWM PRN Acid Reflux 07/03/24 10/29/24 10/28/24 History Exam Airway Mallampati Class: II TM Dist: >3cm Loose/Missing/Broken Teeth: No Heart: rrr Lungs: cta Other: normal Assessment and Plan Final Anesthetic Review NPO: Yes ASA Class: III Final Preanesthetic Review: No Changes in Pt Med Stat, Meds/Allgs Chart Reviewed, Consent Obtained/Reviewed and Anes Risks/Benef Reviewed Patient Risk: Intermediate Procedure Risk: Intermediate Anesthetic Plan Anesthetic Plan: GA Disposition: Standard PACU
[2024-10-31 08:40] LABS: Creatinine Clr Calc Pharmacy 11.2; Estimated Glomerular Filt Rate 7
[2024-10-31] MEDS: 0.9 % Sodium Chloride Flush 3 ML SYRINGE IVFLUSH ×3 (08:44→19:13)
[2024-10-31] MEDS: methylPREDNISolone Sod Succ 1,000 MG in 0.9 % Sodium Chloride 50 ML 66 MG IV (08:50)
--- NOTE | 2024-10-31 11:46 | MHC.CM.PN ---
EMR REVIEWED, PER HOSPITALIST PLAN FOR PT TO GO TO OR FOR FOOT DEBRIDEMENT TODAY, HD TOMORROW AND PT SHOULD BE CLEARED FOR DC HOME, PT WILL NEED BLS TRANSPORT, CM WILL CONT TO FOLLOW DC NEEDS.
[2024-10-31 12:58] LABS: Glucose, Whole Blood 220 mg/dL (60-115)
--- NOTE | 2024-10-31 12:58 | P.PNIM_ITS ---
Subjective Subjective Date of Service: 10/31/24 Interval History: c/o itching NPO for plantar debridement; very painful wound on L TMA stump Review of Systems Review of Systems: Yes all other systems are reviewed and are negative Physical Exam 2 Vital Signs: Vital Signs: Last Vital Signs Temp 97.1 F 10/31/24 08:00 Pulse 91 10/31/24 08:41 Resp 18 10/31/24 08:00 BP 181/86 H 10/31/24 08:43 Pulse Ox 90 L 10/31/24 08:00 O2 Del Method Room Air 10/31/24 08:00 O2 Flow Rate 2 10/31/24 03:25 Oxygen Flow Rate 3 10/29/24 09:35 BMI result Body Mass Index 33.9 Gen: in no acute distress HEENT: sclera anicteric, moist mucus membranes Neck: supple Lungs: clear to auscultation bilaterally Heart: regular rate and rhythm, no murmurs Abd: soft, non-tender, non-distended Ext: no edema, bilateral TMAs Skin: warm/well-perfused, necrotic plantar wound with thick callous Neuro: alert and oriented x3, blind, no focal weakness Psych: appropriate affect Objective Data Active Medications Acetaminophen (Acetaminophen 325 Mg Tablet) 650 mg PO Q6H PRN PRN Reason: Pain, Mild 1-3,fever,headache Albuterol Sulfate (Albuterol Sulfate 90 Mcg 8 Gm Inhaler) 2 puff INHALE Q6H PRN PRN Reason: Wheezing Calcium Carbonate (Calcium Carbonate 750 Mg Tab.Chew) 750 mg PO TIDWM PRN PRN Reason: Acid Reflux Calcium Carbonate (Calcium Carbonate 750 Mg Tab.Chew) 750 mg PO Q4H PRN PRN Reason: Heartburn Carvedilol (Carvedilol 12.5 Mg Tablet) 12.5 mg PO BID [facility]; Protocol Last Admin: 10/31/24 08:41 Dose: 12.5 mg Documented By: MEMO Dextrose (Dextrose 50 % 25 Gm/50 Ml Syringe) 25 gm IVPUSH Q15M PRN; Protocol PRN Reason: per Hypoglycemia Standing Ord. Diphenhydramine HCl (Diphenhydramine Hcl 50 Mg/Ml Vial) 25 mg IVPUSH Q6H PRN PRN Reason: Itching Last Admin: 10/31/24 12:40 Dose: 25 mg Documented By: MEMO Glucose (Glucose Gel 15 Gm Gel..Gram.) 15 gm PO Q15M PRN; Protocol PRN Reason: per Hypoglycemia Standing Ord. Heparin Sodium (Porcine) (Heparin Sodium,Porcine 5,000 Unit/Ml Vial) 5,000 unit SUBCUT Q8H [facility] Last Admin: 10/31/24 04:47 Dose: Not Given Documented By: MARIZA Non-Admin Reason: Patient Refused Hydralazine HCl (Hydralazine Hcl 50 Mg Tablet) 50 mg PO TID [facility]; Protocol Last Admin: 10/31/24 08:43 Dose: 50 mg Documented By: MEMO Hydralazine HCl (Hydralazine Hcl 20 Mg/Ml Vial) 10 mg IVPUSH Q6H PRN; Protocol PRN Reason: SBP>180 Last Admin: 10/30/24 15:40 Dose: 10 mg Documented By: CHET Hydromorphone HCl (Hydromorphone Hcl 0.5 Mg/0.5 Ml Syringe) 0.5 mg IVPUSH Q4H PRN; Protocol PRN Reason: Pain, Severe (Pain Scale 7-10) Last Admin: 10/31/24 08:44 Dose: 0.5 mg Documented By: MEMO Insulin Human Lispro (Insulin Lispro 100 Unit/Ml 3 Ml Vial) 0 unit SUBCUT QIDACHS [facility]; Protocol Last Admin: 10/31/24 12:40 Dose: 4 unit Documented By: MEMO Lidocaine (Lidocaine 4 % Patch Adh..Patch) 1 patch TRANSDERMA DAILY PRN PRN Reason: Pain Magnesium Hydroxide (Milk Of Magnesia 30 Ml Oral.Susp) 30 ml PO DAILY PRN PRN Reason: Constipation Melatonin (Melatonin 3 Mg Tablet) 6 mg PO BEDTIME PRN PRN Reason: Insomnia Nitroglycerin (Nitroglycerin 0.4 Mg Tab.Subl) 0.4 mg SUBLINGUAL Q5M PRN PRN Reason: Angina Ondansetron HCl (Ondansetron Hcl 4 Mg/2 Ml Vial) 4 mg IVPUSH Q8H PRN PRN Reason: Nausea and Vomiting Last Admin: 10/30/24 09:48 Dose: 4 mg Documented By: CHET Oxycodone HCl (Oxycodone Hcl Immed Release 5 Mg Tablet) 5 mg PO Q8H PRN PRN Reason: Pain, Moderate(Pain Scale 4-6) Sodium Chloride (0.9 % Sodium Chloride Flush 3 Ml Syringe) 3 ml IVFLUSH QSHIFT [facility] Last Admin: 10/31/24 08:44 Dose: 3 ml Documented By: MEMO Labs 10/30/24 10:35 10/31/24 07:40 Labs: Laboratory Results - last 24 hr 10/30/24 10/30/24 10/31/24 15:24 19:49 07:40 Anion Gap 20 Estim Creat Clear Calc 11.2 Estimated GFR 7 POC Glucose 239 H 363 H* Random Glucose 428 H* Calcium 7.1 L 10/31/24 08:14 Anion Gap Estim Creat Clear Calc Estimated GFR POC Glucose 410 H* Random Glucose Calcium Assessment and Plan (1) Multiple sclerosis: Status: Acute Plan d3 for 34yo F with ESRD on HD TuThSa, DM2 with polyneuropathy/retinopathy + legal blindness, PAD s/p bilateral TMA, chronic hypoxia on 3-4L O2, chronic HFrEF, multiple HD catheter line infections with MSSA/Stenotrophomonas/Pseudomonas, mood disorder, and chronic pain with opioid- seeking behavior; recently diagnosed MS presenting with R-sided weakness + MENDIOLA concerning for MS flare, also found to have hyperK MS flare - per Neuro, 3 days of high-dose IV Solu-medrol complet today; weakness resolved - MRI with chronic demyelinating disease; no new acute lesions - try to get PA for Aubagio hyperK due to missed HD - HD 10/29 and again 10/30, K 6.9->4.6, HD tomorrow HTN urgency - resolving with carvedilol + hydralazine ESRD on HD with hx noncompliance - HD TuThSa [[facility] pt] - missed HD Sunday due to court appearance necrotic plantar wound - to OR for debridement today DM2 with steroid hyperglycemia - correction-dose lispro chronic hypoxia - 3-4L O2 via [place] chronic HFrEF - carvedilol, HD to manage volume chronic pain syndrome - oxycodone, minimize IV Dilaudid VTE ppx - UFH dispo - anticipate home with VNA after wound debrided In my clinical judgment, the patient requires continued inpatient hospitalization for the following reasons: OR, IV steroids Total time managing care of this patient today: 45 minutes. Quality Stroke Does the patient have a stroke diagnosis?: No VTE Prior VTE?: No VTE Risk Level:: Medical - moderate - high VTE Device Contraindication: Treatment Not Indicated VTE Drug Contraindication: N/A - Med Ordered
--- NOTE | 2024-10-31 13:45 | PM.EVENT ---
Event Note Date of Service: 10/31/24 Event Note: Patient was scheduled for debridement of the thick callus in the left foot earlier today However, blood sugars were noted to markedly elevated at above 400 Case discussed with anesthesiologist - recommended to hold off on procedure with the anesthesia today The area is not acutely infected, no pus/ abscess or cellulitic changes If the patient is to be discharged over the weekend, we can see her in the office as an outpatient Otherwise, if she is still here by next week, we can try to do the debridement prior to her being discharged Patient has multiple other medical problems Time Spent With Patient Time: Total time managing care of this patient today ____ minutes.
[2024-10-31 16:15] LABS: Glucose, Whole Blood 333 mg/dL (60-115)
[2024-10-31 20:05] LABS: Glucose, Whole Blood 453 mg/dL (60-115)
[2024-10-31] MEDS: Insulin Glargine,Hum.rec.anlog 100 UNIT/ML 10 ML VIAL 10 UNIT SUBCUT (21:28)
[2024-11-01 08:23] LABS: Glucose, Whole Blood 456 mg/dL (60-115)
[2024-11-01 08:37] VITALS: BP 149/67; PULSE 82
[2024-11-01] MEDS: 0.9 % Sodium Chloride Flush 3 ML SYRINGE IVFLUSH ×2 (08:41→15:43)
--- NOTE | 2024-11-01 11:11 | HO.PM.IMPN ---
Subjective Subjective Date of Service: 11/01/24 Interval History: L foot pain hyperglycemic in HD today Review of Systems Review of Systems: Yes all other systems are reviewed and are negative Physical Exam Vital Signs: Vital Signs: Last Vital Signs Temp 97.3 F 10/31/24 23:45 Pulse 82 11/01/24 08:37 Resp 18 10/31/24 23:45 BP 149/67 H 11/01/24 08:37 Pulse Ox 95 10/31/24 23:45 O2 Del Method Room Air 10/31/24 23:45 O2 Flow Rate 2 10/31/24 16:00 Oxygen Flow Rate 3 10/29/24 09:35 BMI result Body Mass Index 33.9 Gen: in no acute distress HEENT: sclera anicteric, moist mucus membranes Neck: supple Lungs: clear to auscultation bilaterally Heart: regular rate and rhythm, no murmurs Abd: soft, non-tender, non-distended Ext: no edema, bilateral TMAs Skin: warm/well-perfused, necrotic plantar wound with thick callous Neuro: alert and oriented x3, blind, no focal weakness Psych: appropriate affect Objective Data Active Medications Acetaminophen (Acetaminophen 325 Mg Tablet) 650 mg PO Q6H PRN PRN Reason: Pain, Mild 1-3,fever,headache Albuterol Sulfate (Albuterol Sulfate 90 Mcg 8 Gm Inhaler) 2 puff INHALE Q6H PRN PRN Reason: Wheezing Calcium Carbonate (Calcium Carbonate 750 Mg Tab.Chew) 750 mg PO TIDWM PRN PRN Reason: Acid Reflux Calcium Carbonate (Calcium Carbonate 750 Mg Tab.Chew) 750 mg PO Q4H PRN PRN Reason: Heartburn Carvedilol (Carvedilol 12.5 Mg Tablet) 12.5 mg PO BID [facility]; Protocol Last Admin: 11/01/24 08:37 Dose: 12.5 mg Documented By: MEMO Dextrose (Dextrose 50 % 25 Gm/50 Ml Syringe) 25 gm IVPUSH Q15M PRN; Protocol PRN Reason: per Hypoglycemia Standing Ord. Diphenhydramine HCl (Diphenhydramine Hcl 50 Mg/Ml Vial) 25 mg IVPUSH Q6H PRN PRN Reason: Itching Last Admin: 11/01/24 08:35 Dose: 25 mg Documented By: MEMO Glucose (Glucose Gel 15 Gm Gel..Gram.) 15 gm PO Q15M PRN; Protocol PRN Reason: per Hypoglycemia Standing Ord. Heparin Sodium (Porcine) (Heparin Sodium,Porcine 5,000 Unit/Ml Vial) 5,000 unit SUBCUT Q8H [facility] Last Admin: 10/31/24 22:49 Dose: Not Given Documented By: MARIZA Non-Admin Reason: Patient Refused Hydralazine HCl (Hydralazine Hcl 50 Mg Tablet) 50 mg PO TID [facility]; Protocol Last Admin: 11/01/24 08:37 Dose: 50 mg Documented By: MEMO Hydralazine HCl (Hydralazine Hcl 20 Mg/Ml Vial) 10 mg IVPUSH Q6H PRN; Protocol PRN Reason: SBP>180 Last Admin: 10/30/24 15:40 Dose: 10 mg Documented By: CHET Hydromorphone HCl (Hydromorphone Hcl 0.5 Mg/0.5 Ml Syringe) 0.5 mg IVPUSH Q4H PRN; Protocol PRN Reason: Pain, Severe (Pain Scale 7-10) Last Admin: 11/01/24 08:35 Dose: 0.5 mg Documented By: MEMO Insulin Glargine (Insulin Glargine,Hum.Rec.Anlog 100 Unit/Ml 10 Ml Vial) 10 unit SUBCUT BEDTIME [facility] Last Admin: 10/31/24 21:28 Dose: 10 unit Documented By: KADIE Insulin Human Lispro (Insulin Lispro 100 Unit/Ml 3 Ml Vial) 0 unit SUBCUT QIDACHS [facility]; Protocol Last Admin: 11/01/24 08:36 Dose: 12 unit Documented By: MEMO Lidocaine (Lidocaine 4 % Patch Adh..Patch) 1 patch TRANSDERMA DAILY PRN PRN Reason: Pain Magnesium Hydroxide (Milk Of Magnesia 30 Ml Oral.Susp) 30 ml PO DAILY PRN PRN Reason: Constipation Melatonin (Melatonin 3 Mg Tablet) 6 mg PO BEDTIME PRN PRN Reason: Insomnia Nitroglycerin (Nitroglycerin 0.4 Mg Tab.Subl) 0.4 mg SUBLINGUAL Q5M PRN PRN Reason: Angina Ondansetron HCl (Ondansetron Hcl 4 Mg/2 Ml Vial) 4 mg IVPUSH Q8H PRN PRN Reason: Nausea and Vomiting Last Admin: 11/01/24 08:35 Dose: 4 mg Documented By: MEMO Oxycodone HCl (Oxycodone Hcl Immed Release 5 Mg Tablet) 5 mg PO Q8H PRN PRN Reason: Pain, Moderate(Pain Scale 4-6) Sodium Chloride (0.9 % Sodium Chloride Flush 3 Ml Syringe) 3 ml IVFLUSH QSHIFT [facility] Last Admin: 11/01/24 08:41 Dose: 3 ml Documented By: MEMO Labs 10/30/24 10:35 10/31/24 07:40 Labs: Laboratory Results - last 24 hr 10/31/24 10/31/24 10/31/24 12:00 16:07 19:56 POC Glucose 220 H 333 H 453 H* 11/01/24 08:19 POC Glucose 456 H* Assessment and Plan (1) Multiple sclerosis: Status: Acute Plan d4 for 34yo F with ESRD on HD TuThSa, DM2 with polyneuropathy/retinopathy + legal blindness, PAD s/p bilateral TMA, chronic hypoxia on 3-4L O2, chronic HFrEF, multiple HD catheter line infections with MSSA/Stenotrophomonas/Pseudomonas, mood disorder, and chronic pain with opioid-seeking behavior; recently diagnosed MS presenting with R-sided weakness + MENDIOLA concerning for MS flare, also found to have hyperK MS flare - per Neuro, got 3d of high-dose IV methylprednisolone 10/29-10/31; weakness resolved - MRI with chronic demyelinating disease; no new acute lesions - try to get PA for Aubagio hyperK due to missed HD - HD 10/29 and again 10/30, K 6.9->4.6, routinbe HD today HTN urgency - resolved with carvedilol + hydralazine ESRD on HD with hx noncompliance - HD [facility] [[facility] pt] - missed HD Sunday due to court appearance necrotic plantar wound - OR debridement canceled yesterday due to hyperglycemia; reschedule for next week DM2 with steroid hyperglycemia - correction-dose lispro increased; added Lantus chronic hypoxia - 3-4L O2 via [place] chronic HFrEF - carvedilol, HD to manage volume chronic pain syndrome - oxycodone, minimize IV Dilaudid VTE ppx - UFH dispo - anticipate home with VNA after wound debrided In my clinical judgment, the patient requires continued inpatient hospitalization for the following reasons: OR, hyperglycemia Total time managing care of this patient today: 45 minutes. Quality Stroke Does the patient have a stroke diagnosis?: No VTE Prior VTE?: No VTE Risk Level:: Medical - moderate - high VTE Device Contraindication: Treatment Not Indicated VTE Drug Contraindication: N/A - Med Ordered
[2024-11-01 11:42] LABS: Glucose, Whole Blood 256 mg/dL (60-115)
[2024-11-01 13:14] LABS: Blood Urea Nitrogen 42 mg/dL (9-16); Calcium 7.5 mg/dL (8.4-10.2); Creatinine Clr Calc Pharmacy 18.4; Estimated Glomerular Filt Rate 12
[2024-11-01 13:24] LABS: Anion Gap 16 (12-20); Carbon Dioxide 25 mmol/L (22-29); Chloride 97 mmol/L (96-108); Potassium 3.4 mmol/L (3.3-5.1); Sodium 135 mmol/L (135-145)
[2024-11-01 15:43] VITALS: BP 152/78
[2024-11-01 15:44] LABS: Anion Gap 18 (12-20); Blood Urea Nitrogen 51 mg/dL (9-16); Calcium 7.1 mg/dL (8.4-10.2); Carbon Dioxide 20 mmol/L (22-29); Chloride 102 mmol/L (96-108); Creatinine Clr Calc Pharmacy 13.3; Estimated Glomerular Filt Rate 8; Potassium 4.4 mmol/L (3.3-5.1); Sodium 136 mmol/L (135-145)
[2024-11-01 15:49] VITALS: BP 152/78; PULSE 85; RESP 20; TEMP 36; O2SAT 98
[2024-11-01 16:28] LABS: Glucose, Whole Blood 191 mg/dL (60-115)
[2024-11-01 19:47] VITALS: BP 132/59; PULSE 83; RESP 18; TEMP 36.3; O2SAT 96
[2024-11-01 20:13] LABS: Glucose, Whole Blood 258 mg/dL (60-115)
[2024-11-01] MEDS: Insulin Glargine,Hum.rec.anlog 100 UNIT/ML 10 ML VIAL 10 UNIT SUBCUT (21:07)
[2024-11-01 23:27] VITALS: BP 125/60; PULSE 83; RESP 18; TEMP 36.3; O2SAT 96
[2024-11-02] VITALS (10 sets, daily range): BP systolic 96–119; BP diastolic 50–72; PULSE 76–87; RESP 16–20; TEMP 36–36.7; O2SAT 96–100
[2024-11-02 08:04] LABS: Glucose, Whole Blood 187 mg/dL (60-115)
[2024-11-02] MEDS: 0.9 % Sodium Chloride Flush 3 ML SYRINGE IVFLUSH ×3 (09:49→23:17)
[2024-11-02 12:13] LABS: Glucose, Whole Blood 113 mg/dL (60-115)
--- NOTE | 2024-11-02 12:20 | P.PNIM_ITS ---
Subjective Subjective Date of Service: 11/02/24 Interval History: c/o foot pain BGs improved Review of Systems Review of Systems: Yes all other systems are reviewed and are negative Physical Exam 2 Vital Signs: Vital Signs: Last Vital Signs Temp 97.2 F 11/02/24 12:00 Pulse 78 11/02/24 12:00 Resp 20 11/02/24 12:00 BP 118/72 11/02/24 09:47 Pulse Ox 98 11/02/24 12:00 O2 Del Method Nasal Cannula 11/02/24 12:00 O2 Flow Rate 2 11/02/24 12:00 Oxygen Flow Rate 3 10/29/24 09:35 BMI result Body Mass Index 33.9 Gen: in no acute distress HEENT: sclera anicteric, moist mucus membranes Neck: supple Lungs: clear to auscultation bilaterally Heart: regular rate and rhythm, no murmurs Abd: soft, non-tender, non-distended Ext: no edema, bilateral TMAs Skin: warm/well-perfused, necrotic plantar wound with thick callous Neuro: alert and oriented x3, blind, no focal weakness Psych: appropriate affect Objective Data Active Medications Acetaminophen (Acetaminophen 325 Mg Tablet) 650 mg PO Q6H PRN PRN Reason: Pain, Mild 1-3,fever,headache Albuterol Sulfate (Albuterol Sulfate 90 Mcg 8 Gm Inhaler) 2 puff INHALE Q6H PRN PRN Reason: Wheezing Calcium Carbonate (Calcium Carbonate 750 Mg Tab.Chew) 750 mg PO TIDWM PRN PRN Reason: Acid Reflux Calcium Carbonate (Calcium Carbonate 750 Mg Tab.Chew) 750 mg PO Q4H PRN PRN Reason: Heartburn Carvedilol (Carvedilol 12.5 Mg Tablet) 12.5 mg PO BID [facility]; Protocol Last Admin: 11/02/24 09:46 Dose: 12.5 mg Documented By: LAILA Dextrose (Dextrose 50 % 25 Gm/50 Ml Syringe) 25 gm IVPUSH Q15M PRN; Protocol PRN Reason: per Hypoglycemia Standing Ord. Diphenhydramine HCl (Diphenhydramine Hcl 50 Mg/Ml Vial) 25 mg IVPUSH Q6H PRN PRN Reason: Itching Last Admin: 11/02/24 09:47 Dose: 25 mg Documented By: LAILA Glucose (Glucose Gel 15 Gm Gel..Gram.) 15 gm PO Q15M PRN; Protocol PRN Reason: per Hypoglycemia Standing Ord. Heparin Sodium (Porcine) (Heparin Sodium,Porcine 5,000 Unit/Ml Vial) 5,000 unit SUBCUT Q8H [facility] Last Admin: 11/02/24 09:49 Dose: Not Given Documented By: LAILA Non-Admin Reason: Patient Refused Hydralazine HCl (Hydralazine Hcl 50 Mg Tablet) 50 mg PO TID [facility]; Protocol Last Admin: 11/02/24 09:47 Dose: 50 mg Documented By: LAILA Hydralazine HCl (Hydralazine Hcl 20 Mg/Ml Vial) 10 mg IVPUSH Q6H PRN; Protocol PRN Reason: SBP>180 Last Admin: 10/30/24 15:40 Dose: 10 mg Documented By: CHET Hydromorphone HCl (Hydromorphone Hcl 0.5 Mg/0.5 Ml Syringe) 0.5 mg IVPUSH Q4H PRN; Protocol PRN Reason: Pain, Severe (Pain Scale 7-10) Last Admin: 11/02/24 09:47 Dose: 0.5 mg Documented By: LAILA Insulin Glargine (Insulin Glargine,Hum.Rec.Anlog 100 Unit/Ml 10 Ml Vial) 10 unit SUBCUT BEDTIME [facility] Last Admin: 11/01/24 21:07 Dose: 10 unit Documented By: KELLY Insulin Human Lispro (Insulin Lispro 100 Unit/Ml 3 Ml Vial) 0 unit SUBCUT QIDACHS [facility]; Protocol Last Admin: 11/02/24 09:48 Dose: 4 unit Documented By: LAILA Lidocaine (Lidocaine 4 % Patch Adh..Patch) 1 patch TRANSDERMA DAILY PRN PRN Reason: Pain Magnesium Hydroxide (Milk Of Magnesia 30 Ml Oral.Susp) 30 ml PO DAILY PRN PRN Reason: Constipation Melatonin (Melatonin 3 Mg Tablet) 6 mg PO BEDTIME PRN PRN Reason: Insomnia Nitroglycerin (Nitroglycerin 0.4 Mg Tab.Subl) 0.4 mg SUBLINGUAL Q5M PRN PRN Reason: Angina Ondansetron HCl (Ondansetron Hcl 4 Mg/2 Ml Vial) 4 mg IVPUSH Q8H PRN PRN Reason: Nausea and Vomiting Last Admin: 11/02/24 09:46 Dose: 4 mg Documented By: LAILA Oxycodone HCl (Oxycodone Hcl Immed Release 5 Mg Tablet) 5 mg PO Q8H PRN PRN Reason: Pain, Moderate(Pain Scale 4-6) Sodium Chloride (0.9 % Sodium Chloride Flush 3 Ml Syringe) 3 ml IVFLUSH QSHIFT [facility] Last Admin: 11/02/24 09:49 Dose: 3 ml Documented By: LAILA Labs 10/30/24 10:35 11/01/24 14:50 Labs: Laboratory Results - last 24 hr 11/01/24 11/01/24 11/01/24 12:09 14:50 16:23 Anion Gap 16 18 Estim Creat Clear Calc 18.4 13.3 Estimated GFR 12 8 POC Glucose 191 H Random Glucose 252 H 248 H Calcium 7.5 L 7.1 L 11/01/24 11/02/24 11/02/24 20:01 07:54 12:06 Anion Gap Estim Creat Clear Calc Estimated GFR POC Glucose 258 H 187 H 113 Random Glucose Calcium Assessment and Plan (1) Multiple sclerosis: Status: Acute Plan d5 for 34yo F with ESRD on HD TuThSa, DM2 with polyneuropathy/retinopathy + legal blindness, PAD s/p bilateral TMA, chronic hypoxia on 3-4L O2, chronic HFrEF, multiple HD catheter line infections with MSSA/Stenotrophomonas/Pseudomonas, mood disorder, and chronic pain with opioid- seeking behavior; recently diagnosed MS presenting with R-sided weakness + MENDIOLA concerning for MS flare, also found to have hyperK MS flare - per Neuro, got 3d of high-dose IV methylprednisolone 10/29-10/31; weakness resolved - MRI with chronic demyelinating disease; no new acute lesions - try to get PA for Aubagio hyperK due to missed HD - HD 10/29 and again 10/30, K 6.9->4.6, routine HD done yesterday HTN urgency - resolved with carvedilol + hydralazine ESRD on HD with hx noncompliance - HD [facility] [[facility] pt] - missed HD Sunday due to court appearance necrotic plantar wound - OR debridement canceled 10/31 due to hyperglycemia; reschedule for tomorrow DM2 with steroid hyperglycemia - correction-dose lispro increased; added Lantus; will decrease doses of both insulins now that steroid effect wearing off chronic hypoxia - 3-4L O2 via [place] chronic HFrEF - carvedilol, HD to manage volume chronic pain syndrome - oxycodone, minimize IV Dilaudid VTE ppx - UFH dispo - anticipate home with VNA after wound debrided In my clinical judgment, the patient requires continued inpatient hospitalization for the following reasons: OR, hyperglycemia Total time managing care of this patient today: 35 minutes. Quality Stroke Does the patient have a stroke diagnosis?: No VTE Prior VTE?: No VTE Risk Level:: Medical - moderate - high VTE Device Contraindication: Treatment Not Indicated VTE Drug Contraindication: N/A - Med Ordered
[2024-11-02 17:08] LABS: Glucose, Whole Blood 183 mg/dL (60-115)
[2024-11-03 00:28] LABS: CDiff Gene PCR POSITIVE (Negative)
--- NOTE | 2024-11-03 00:55 | PM.EVENT ---
Event Note Date of Service: 11/03/24 Event Note: 12:55 AM - Pt developed loose stools. C diff toxin B positive. Will start tx with fidaxomicin 200 mg PO bid X10 days as the pt is allergic to vancomycin. Contact precautions and ID consult placed. Time Spent With Patient Time: Total time managing care of this patient today ____ minutes.
[2024-11-03 01:12] LABS: CDIFF Internal ctrl Dots and bkg OK (V); CDiff Toxin Negative (Negative)
[2024-11-03 08:00] VITALS: BP 136/68; PULSE 84; RESP 18; TEMP 36.2; O2SAT 99
--- NOTE | 2024-11-03 08:57 | PM.PNGS ---
Subjective Subjective Date of Service: 11/03/24 <Regino Sauceda PA-C - Last Filed: 11/03/24 09:20> 11/03/24 <Tu Rajput MD - Last Filed: 11/03/24 10:23> Interval history: more pain in the left foot. Denies fevers or chills <LEXA Gomez Last Filed: 11/03/24 09:20> Physical Exam Vital Signs: Vital Signs: Last Vital Signs Temp 97.2 F 11/03/24 08:00 Pulse 84 11/03/24 08:00 Resp 18 11/03/24 08:00 BP 136/68 11/03/24 08:00 Pulse Ox 99 11/03/24 08:00 O2 Del Method Room Air 11/03/24 08:00 O2 Flow Rate 2 11/02/24 23:14 Oxygen Flow Rate 3 10/29/24 09:35 BMI result Body Mass Index 33.9 <LEXA Gomez Last Filed: 11/03/24 09:20> Const: General: no acute distress <Regino Sauceda PA-C - Last Filed: 11/03/24 09:20> Orientation/consciousness: patient oriented x3 <LEXA Gomez Last Filed: 11/03/24 09:20> Resp: Effort & Inspection: normal respiratory effort and able to speak in complete sentences <Regino Sauceda PA-C - Last Filed: 11/03/24 09:20> Skin: Other: left foot: 1.5x1.5 cm wound on the plantar aspect of the left foot. with some areas of necrosis. There is a thick callous without drainage. Very painful to the touch. superficial open wound on the dorsum of the right foot. scant bloody drainage. <Regino Sauceda PA-C - Last Filed: 11/03/24 09:20> Neuro: General: patient oriented x3 <LEXA Gomez Last Filed: 11/03/24 09:20> Objective Data Active Medications Acetaminophen (Acetaminophen 325 Mg Tablet) 650 mg PO Q6H PRN PRN Reason: Pain, Mild 1-3,fever,headache Albuterol Sulfate (Albuterol Sulfate 90 Mcg 8 Gm Inhaler) 2 puff INHALE Q6H PRN PRN Reason: Wheezing Calcium Carbonate (Calcium Carbonate 750 Mg Tab.Chew) 750 mg PO TIDWM PRN PRN Reason: Acid Reflux Calcium Carbonate (Calcium Carbonate 750 Mg Tab.Chew) 750 mg PO Q4H PRN PRN Reason: Heartburn Carvedilol (Carvedilol 12.5 Mg Tablet) 12.5 mg PO BID [facility]; Protocol Last Admin: 11/02/24 21:34 Dose: Not Given Documented By: JOSE MIGUEL Non-Admin Reason: hypotn Dextrose (Dextrose 50 % 25 Gm/50 Ml Syringe) 25 gm IVPUSH Q15M PRN; Protocol PRN Reason: per Hypoglycemia Standing Ord. Diphenhydramine HCl (Diphenhydramine Hcl 50 Mg/Ml Vial) 25 mg IVPUSH Q6H PRN PRN Reason: Itching Last Admin: 11/03/24 05:22 Dose: 25 mg Documented By: DANIEL Fidaxomicin (Fidaxomicin 200 Mg Tablet) 200 mg PO Q12H [facility] Last Admin: 11/03/24 03:24 Dose: 200 mg Documented By: JOSE MIGUEL Glucose (Glucose Gel 15 Gm Gel..Gram.) 15 gm PO Q15M PRN; Protocol PRN Reason: per Hypoglycemia Standing Ord. Heparin Sodium (Porcine) (Heparin Sodium,Porcine 5,000 Unit/Ml Vial) 5,000 unit SUBCUT Q8H [facility] Last Admin: 11/03/24 06:53 Dose: Not Given Documented By: JOSE MIGUEL Non-Admin Reason: Patient Refused Hydralazine HCl (Hydralazine Hcl 50 Mg Tablet) 50 mg PO TID [facility]; Protocol Last Admin: 11/02/24 21:24 Dose: Not Given Documented By: JOSE MIGUEL Non-Admin Reason: HYPOTN Hydralazine HCl (Hydralazine Hcl 20 Mg/Ml Vial) 10 mg IVPUSH Q6H PRN; Protocol PRN Reason: SBP>180 Last Admin: 10/30/24 15:40 Dose: 10 mg Documented By: CHET Hydromorphone HCl (Hydromorphone Hcl 0.5 Mg/0.5 Ml Syringe) 0.5 mg IVPUSH Q4H PRN; Protocol PRN Reason: Pain, Severe (Pain Scale 7-10) Last Admin: 11/03/24 04:59 Dose: 0.5 mg Documented By: JOSE MIGUEL Insulin Glargine (Insulin Glargine,Hum.Rec.Anlog 100 Unit/Ml 10 Ml Vial) 5 unit SUBCUT BEDTIME [facility] Last Admin: 11/02/24 21:23 Dose: Not Given Documented By: JOSE MIGULE Non-Admin Reason: Patient Refused Insulin Human Lispro (Insulin Lispro 100 Unit/Ml 3 Ml Vial) 0 unit SUBCUT QIDACHS [facility]; Protocol Last Admin: 11/03/24 07:39 Dose: Not Given Documented By: ROSIE Non-Admin Reason: pt refusing poc Lidocaine (Lidocaine 4 % Patch Adh..Patch) 1 patch TRANSDERMA DAILY PRN PRN Reason: Pain Magnesium Hydroxide (Milk Of Magnesia 30 Ml Oral.Susp) 30 ml PO DAILY PRN PRN Reason: Constipation Melatonin (Melatonin 3 Mg Tablet) 6 mg PO BEDTIME PRN PRN Reason: Insomnia Nitroglycerin (Nitroglycerin 0.4 Mg Tab.Subl) 0.4 mg SUBLINGUAL Q5M PRN PRN Reason: Angina Ondansetron HCl (Ondansetron Hcl 4 Mg/2 Ml Vial) 4 mg IVPUSH Q8H PRN PRN Reason: Nausea and Vomiting Last Admin: 11/03/24 04:59 Dose: 4 mg Documented By: JOSE MIGUEL Oxycodone HCl (Oxycodone Hcl Immed Release 5 Mg Tablet) 5 mg PO Q8H PRN PRN Reason: Pain, Moderate(Pain Scale 4-6) Sodium Chloride (0.9 % Sodium Chloride Flush 3 Ml Syringe) [facility] [place] Last Admin: 11/02/24 23:17 Dose: 3 ml Documented By: JOSE MIGUEL <Regino Sauceda PA-C - Last Filed: 11/03/24 09:20> Labs CBC & Chem 7: 10/30/24 10:35 11/01/24 14:50 <Regino Sauceda PA-C - Last Filed: 11/03/24 09:20> Labs: Laboratory Results - last 24 hr 11/02/24 11/02/24 11/02/24 12:06 17:00 23:22 POC Glucose 113 183 H C. difficile Tox B Gene POSITIVE A* C. difficile Toxin A&B Negative C. difficile Interpret SEE NOTE <Regino Sauceda PA-C - Last Filed: 11/03/24 09:20> Procedures Date of Service Date of Service: 11/03/24 <Regino Sauceda PA-C - Last Filed: 11/03/24 09:20> 11/03/24 <Tu Rajput MD - Last Filed: 11/03/24 10:23> Progress Note: A&P Assessment and plan (1) DM foot ulcer: Status: Acute <Regino Sauceda PA-C - Last Filed: 11/03/24 09:20> Assessment and Plan: Has a thick callus in the left foot We will try to do debridement either there tomorrow in the operating room depending on availability of rooms I explained this to her and she understands Seen and examined independently <Tu Rajput MD - Last Filed: 11/03/24 10:23> Assessment and Plan: 34yo F with ESRD on HD TuThSa, DM2 with polyneuropathy/retinopathy + legal blindness, PAD s/p bilateral TMA, chronic hypoxia on 3-4L O2, chronic HFrEF, multiple HD catheter line infections with MSSA/Stenotrophomonas/Pseudomonas, mood disorder, and chronic pain with opioid-seeking behavior; recently diagnosed MS. originally planned for OR debridement last week, case was cancelled due to elevated BGs. These have been more stable over the weekend. she is experiencing more pain in the left foot. on exam the wound is largely unchanged, thick necrotic callous, minimal to no discharge. there is a more superficial wound on the dorsum of the left foot with small amounts of bloody discharge. Will plan for debridement in OR tomorrow, unable to do so today due to limited OR availability. continue ABX per medicine. BG control added onto OR schedule for tomorrow, NPO after midnight. <Regino Sauceda PA-C - Last Filed: 11/03/24 09:20> Time Spent With Patient Time: Total time managing care of this patient today ____ minutes. <Regino Sauceda PA-C - Last Filed: 11/03/24 09:20> Quality Stroke Does the patient have a stroke diagnosis?: No <LEXA Gomez Last Filed: 11/03/24 09:20> VTE Prior VTE?: No <Regino Sauceda PA-C - Last Filed: 11/03/24 09:20> VTE Risk Level:: Medical - moderate - high <Regino Sauceda PA-C - Last Filed: 11/03/24 09:20> VTE Device Contraindication: Treatment Not Indicated <Regino Sauceda PA-C - Last Filed: 11/03/24 09:20> VTE Drug Contraindication: N/A - Med Ordered <Regino Sauceda PA-C - Last Filed: 11/03/24 09:20>
[2024-11-03] MEDS: 0.9 % Sodium Chloride Flush 3 ML SYRINGE IVFLUSH ×3 (09:19→22:17)
--- NOTE | 2024-11-03 10:40 | MHC.CM.PN ---
Per ROUNDS discussion, Patient is not yet medically cleared for dc (Debridement today); Patient has declined VNA in the past; home resume services is the tentative plan. CM will follow.
[2024-11-03 12:00] VITALS: BP 99/49; PULSE 83; RESP 20; TEMP 36.3; O2SAT 2
--- NOTE | 2024-11-03 13:47 | P.PNIM_ITS ---
Subjective Subjective Date of Service: 11/03/24 Interval History: c/o severe L foot pain Review of Systems Review of Systems: Yes all other systems are reviewed and are negative Physical Exam 2 Vital Signs: Vital Signs: Last Vital Signs Temp 97.4 F 11/03/24 12:00 Pulse 83 11/03/24 12:00 Resp 20 11/03/24 12:00 BP 99/49 L 11/03/24 12:00 Pulse Ox 2 L 11/03/24 12:00 O2 Del Method Nasal Cannula 11/03/24 12:00 O2 Flow Rate 2 11/02/24 23:14 Oxygen Flow Rate 3 10/29/24 09:35 BMI result Body Mass Index 33.9 Gen: in no acute distress HEENT: sclera anicteric, moist mucus membranes Neck: supple Lungs: clear to auscultation bilaterally Heart: regular rate and rhythm, no murmurs Abd: soft, non-tender, non-distended Ext: no edema, bilateral TMAs Skin: warm/well-perfused, necrotic plantar wound with thick callous Neuro: alert and oriented x3, blind, no focal weakness Psych: appropriate affect Objective Data Active Medications Acetaminophen (Acetaminophen 325 Mg Tablet) 650 mg PO Q6H PRN PRN Reason: Pain, Mild 1-3,fever,headache Albuterol Sulfate (Albuterol Sulfate 90 Mcg 8 Gm Inhaler) 2 puff INHALE Q6H PRN PRN Reason: Wheezing Calcium Carbonate (Calcium Carbonate 750 Mg Tab.Chew) 750 mg PO TIDWM PRN PRN Reason: Acid Reflux Calcium Carbonate (Calcium Carbonate 750 Mg Tab.Chew) 750 mg PO Q4H PRN PRN Reason: Heartburn Carvedilol (Carvedilol 12.5 Mg Tablet) 12.5 mg PO BID [facility]; Protocol Last Admin: 11/03/24 09:18 Dose: 12.5 mg Documented By: ROSIE Dextrose (Dextrose 50 % 25 Gm/50 Ml Syringe) 25 gm IVPUSH Q15M PRN; Protocol PRN Reason: per Hypoglycemia Standing Ord. Diphenhydramine HCl (Diphenhydramine Hcl 50 Mg/Ml Vial) 25 mg IVPUSH Q6H PRN PRN Reason: Itching Last Admin: 11/03/24 11:36 Dose: 25 mg Documented By: HO.GOODMA Fidaxomicin (Fidaxomicin 200 Mg Tablet) 200 mg PO Q12H [facility] Last Admin: 11/03/24 13:37 Dose: 200 mg Documented By: ROSIE Glucose (Glucose Gel 15 Gm Gel..Gram.) 15 gm PO Q15M PRN; Protocol PRN Reason: per Hypoglycemia Standing Ord. Heparin Sodium (Porcine) (Heparin Sodium,Porcine 5,000 Unit/Ml Vial) 5,000 unit SUBCUT Q8H [facility] Last Admin: 11/03/24 13:12 Dose: Not Given Documented By: ROSIE Non-Admin Reason: Patient Condition Contraindication Hydralazine HCl (Hydralazine Hcl 50 Mg Tablet) 50 mg PO TID [facility]; Protocol Last Admin: 11/03/24 13:12 Dose: Not Given Documented By: ROSIE Non-Admin Reason: low bp Hydralazine HCl (Hydralazine Hcl 20 Mg/Ml Vial) 10 mg IVPUSH Q6H PRN; Protocol PRN Reason: SBP>180 Last Admin: 10/30/24 15:40 Dose: 10 mg Documented By: CHET Hydromorphone HCl (Hydromorphone Hcl 0.5 Mg/0.5 Ml Syringe) 0.5 mg IVPUSH Q4H PRN; Protocol PRN Reason: Pain, Severe (Pain Scale 7-10) Last Admin: 11/03/24 13:37 Dose: 0.5 mg Documented By: ROSIE Insulin Glargine (Insulin Glargine,Hum.Rec.Anlog 100 Unit/Ml 10 Ml Vial) 5 unit SUBCUT BEDTIME [facility] Last Admin: 11/02/24 21:23 Dose: Not Given Documented By: JOSE MIGUEL Non-Admin Reason: Patient Refused Insulin Human Lispro (Insulin Lispro 100 Unit/Ml 3 Ml Vial) 0 unit SUBCUT QIDACHS [facility]; Protocol Last Admin: 11/03/24 11:34 Dose: Not Given Documented By: KARLI Non-Admin Reason: patient refused poc Lidocaine (Lidocaine 4 % Patch Adh..Patch) 1 patch TRANSDERMA DAILY PRN PRN Reason: Pain Magnesium Hydroxide (Milk Of Magnesia 30 Ml Oral.Susp) 30 ml PO DAILY PRN PRN Reason: Constipation Melatonin (Melatonin 3 Mg Tablet) 6 mg PO BEDTIME PRN PRN Reason: Insomnia Nitroglycerin (Nitroglycerin 0.4 Mg Tab.Subl) 0.4 mg SUBLINGUAL Q5M PRN PRN Reason: Angina Ondansetron HCl (Ondansetron Hcl 4 Mg/2 Ml Vial) 4 mg IVPUSH Q8H PRN PRN Reason: Nausea and Vomiting Last Admin: 11/03/24 04:59 Dose: 4 mg Documented By: JOSE MIGUEL Oxycodone HCl (Oxycodone Hcl Immed Release 5 Mg Tablet) 5 mg PO Q8H PRN PRN Reason: Pain, Moderate(Pain Scale 4-6) Sodium Chloride (0.9 % Sodium Chloride Flush 3 Ml Syringe) 3 ml IVFLUSH QSHIFT [facility] Last Admin: 11/03/24 13:37 Dose: 3 ml Documented By: ROSIE Labs 10/30/24 10:35 11/01/24 14:50 Labs: Laboratory Results - last 24 hr 11/02/24 11/02/24 17:00 23:22 POC Glucose 183 H C. difficile Tox B Gene POSITIVE A* C. difficile Toxin A&B Negative C. difficile Interpret SEE NOTE Assessment and Plan (1) Multiple sclerosis: Status: Acute Plan d6 for 34yo F with ESRD on HD TuThSa, DM2 with polyneuropathy/retinopathy + legal blindness, PAD s/p bilateral TMA, chronic hypoxia on 3-4L O2, chronic HFrEF, multiple HD catheter line infections with MSSA/Stenotrophomonas/Pseudomonas, mood disorder, and chronic pain with opioid- seeking behavior; recently diagnosed MS presenting with R-sided weakness + MENDIOLA concerning for MS flare, also found to have hyperK MS flare - per Neuro, got 3d of high-dose IV methylprednisolone 10/29-10/31; weakness resolved - MRI with chronic demyelinating disease; no new acute lesions - try to get PA for Aubagio hyperK due to missed HD - HD 10/29 and again 10/30, K 6.9->4.6, routine HD done yesterday HTN urgency - resolved with carvedilol + hydralazine ESRD on HD with hx noncompliance - HD TuThSa [[facility] pt] - missed HD Sunday due to court appearance necrotic plantar wound - OR debridement canceled 10/31 due to hyperglycemia; reschedule for tomorrow (OR full today) DM2 with steroid hyperglycemia - correction-dose lispro increased; d/c Lantus now that effect of steroids wearing off chronic hypoxia - 3-4L O2 via NC chronic HFrEF - carvedilol, HD to manage volume chronic pain syndrome - oxycodone, minimize IV Dilaudid VTE ppx - UFH dispo - anticipate home with VNA after wound debrided In my clinical judgment, the patient requires continued inpatient hospitalization for the following reasons: OR Total time managing care of this patient today: 35 minutes. Quality Stroke Does the patient have a stroke diagnosis?: No VTE Prior VTE?: No VTE Risk Level:: Medical - moderate - high VTE Device Contraindication: Treatment Not Indicated VTE Drug Contraindication: N/A - Med Ordered
[2024-11-03 16:00] VITALS: BP 160/59; PULSE 84; RESP 18; TEMP 36.1; O2SAT 99
--- NOTE | 2024-11-03 16:46 | P.CNID_ITS ---
History of Present Illness Data of Consult Service Date: 11/03/24 Requesting physician: Paul Diane Primary Care Provider: Genevieve Casillas MD HPI Reason for consult: Cdiff She presents with diarrhea several times a day watery. She is not on antibiotics now. Review of Systems 2 Review of Systems: Yes all other systems are reviewed and are negative PMFSH Past Medical History Medical History Multiple sclerosis Cerebral infarction Hyperkalemia ESRD on dialysis Hypoxia End stage renal disease on dialysis Chronic ulcer of right foot due to diabetes mellitus Chronic ulcer of left foot due to diabetes mellitus DM foot ulcer ESRD on hemodialysis Hypotonic neurogenic bladder Diabetic polyneuropathy Hypertensive emergency Decompensated heart failure Renal failure Hypertension, uncontrolled Medical non-compliance Pericarditis Unspecified hypertension, condition or complication Metabolic acidosis Gastroparesis End stage chronic kidney disease Chronic kidney disease Anemia Plantar ulcer of left foot MDD (major depressive disorder) CKD (chronic kidney disease) Hypertension Vomiting Chronic pain Non-compliance with renal dialysis End-stage renal disease (ESRD) Diabetic foot ulcer associated with type 2 diabetes mellitus Cardiomyopathy HFrEF (heart failure with reduced ejection fraction) delivery delivered Anemia in chronic kidney disease (CKD) CKD (chronic kidney disease) Abnormal finding on echocardiogram Elevated troponin Acute worsening of stage 3 chronic kidney disease Generalized edema Sepsis Cellulitis Pleural effusion Atypical chest pain Bone infection PAD (peripheral artery disease) Cellulitis and abscess of foot Osteomyelitis Asthma Depression with anxiety Diabetic retinopathy Blind right eye Diabetes Back pain Family History Family History Mother Coronary artery disease Myocardial infarction Stroke Diabetes mellitus Father Myocardial infarction Family history: reviewed and not pertinent Surgical History Surgical History Tubal ligation status Previous section Hx laparoscopic cholecystectomy Hx of surgical procedure (~09/11/23) 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 Social History Social History Household Members: Family and Children Household Members Other:: sister, brother, [id number] Housing: Apartment Housing Other:: Apartment, 1st floor Are you a primary senior care assistant to a significant other at home: No Do you presently have visiting nurse or other home services: No Unable to assess alcohol history related to: Unknown Alcohol intake: never Comment: refused camera Patient Tobacco Use Status: Never used Tobacco Smoked in Last 30 Days: No e-Cigarette/Vaping Use: Never Used Second Hand Smoke Exposure: No Use of substances other than those prescribed or required for medical reasons: No Currently Displaying Signs/Symptoms of Drug Intoxication Withdrawal: No Have you been hit, kicked, punched, or otherwise hurt by someone within the past year? If so, by whom?: No Do you feel safe in your current relationship?: Yes Is there a partner from a previous relationship who is making you feel unsafe now?: No Are you made to feel afraid or neglected: No Spiritual Healthcare Practices: none Advance Directives: Yes Advance Directives on File: Yes Advance Directives Date on File: 08/28/23 Do you have a plan to hurt others: No Plan Recently lost weight without trying: No Nutrition Risks: No Nutritional Risk Patient : No : No Poor oral hygiene: Yes service: No Current occupational status: unemployed and disabled Gender identity: Female Meds Allergies Allergy/AdvReac Type Severity Reaction Status Date / Time gabapentin Allergy Severe Facial Verified 10/29/24 09:37 Swelling tramadol Allergy Severe Facial Verified 10/29/24 09:37 Swelling vancomycin Allergy Severe Anaphylaxis Verified 10/29/24 09:37 azithromycin (From Zithromax) Allergy Intermediate Hives Verified 10/29/24 09:37 morphine (MORPHINE) Allergy Intermediate Itching Verified 10/29/24 09:37 Active Medications: Current Medications Acetaminophen (Acetaminophen 325 Mg Tablet) 650 mg PO Q6H PRN PRN Reason: Pain, Mild 1-3,fever,headache Albuterol Sulfate (Albuterol Sulfate 90 Mcg 8 Gm Inhaler) 2 puff INHALE Q6H PRN PRN Reason: Wheezing Calcium Carbonate (Calcium Carbonate 750 Mg Tab.Chew) 750 mg PO TIDWM PRN PRN Reason: Acid Reflux Calcium Carbonate (Calcium Carbonate 750 Mg Tab.Chew) 750 mg PO Q4H PRN PRN Reason: Heartburn Carvedilol (Carvedilol 12.5 Mg Tablet) 12.5 mg PO BID [facility]; Protocol Last Admin: 11/03/24 09:18 Dose: 12.5 mg Dextrose (Dextrose 50 % 25 Gm/50 Ml Syringe) 25 gm IVPUSH Q15M PRN; Protocol PRN Reason: per Hypoglycemia Standing Ord. Diphenhydramine HCl (Diphenhydramine Hcl 50 Mg/Ml Vial) 25 mg IVPUSH Q6H PRN PRN Reason: Itching Last Admin: 11/03/24 11:36 Dose: 25 mg Fidaxomicin (Fidaxomicin 200 Mg Tablet) 200 mg PO Q12H [facility] Last Admin: 11/03/24 13:37 Dose: 200 mg Glucose (Glucose Gel 15 Gm Gel..Gram.) 15 gm PO Q15M PRN; Protocol PRN Reason: per Hypoglycemia Standing Ord. Heparin Sodium (Porcine) (Heparin Sodium,Porcine 5,000 Unit/Ml Vial) 5,000 unit SUBCUT Q8H [facility] Last Admin: 11/03/24 13:12 Dose: Not Given Hydralazine HCl (Hydralazine Hcl 50 Mg Tablet) 50 mg PO TID [facility]; Protocol Last Admin: 11/03/24 13:12 Dose: Not Given Hydralazine HCl (Hydralazine Hcl 20 Mg/Ml Vial) 10 mg IVPUSH Q6H PRN; Protocol PRN Reason: SBP>180 Last Admin: 10/30/24 15:40 Dose: 10 mg Hydromorphone HCl (Hydromorphone Hcl 0.5 Mg/0.5 Ml Syringe) 0.5 mg IVPUSH Q4H PRN; Protocol PRN Reason: Pain, Severe (Pain Scale 7-10) Last Admin: 11/03/24 13:37 Dose: 0.5 mg Insulin Human Lispro (Insulin Lispro 100 Unit/Ml 3 Ml Vial) 0 unit SUBCUT QIDACHS [facility]; Protocol Last Admin: 11/03/24 16:10 Dose: Not Given Lidocaine (Lidocaine 4 % Patch Adh..Patch) 1 patch TRANSDERMA DAILY PRN PRN Reason: Pain Magnesium Hydroxide (Milk Of Magnesia 30 Ml Oral.Susp) 30 ml PO DAILY PRN PRN Reason: Constipation Melatonin (Melatonin 3 Mg Tablet) 6 mg PO BEDTIME PRN PRN Reason: Insomnia Nitroglycerin (Nitroglycerin 0.4 Mg Tab.Subl) 0.4 mg SUBLINGUAL Q5M PRN PRN Reason: Angina Ondansetron HCl (Ondansetron Hcl 4 Mg/2 Ml Vial) 4 mg IVPUSH Q8H PRN PRN Reason: Nausea and Vomiting Last Admin: 11/03/24 16:14 Dose: 4 mg Oxycodone HCl (Oxycodone Hcl Immed Release 5 Mg Tablet) 5 mg PO Q8H PRN PRN Reason: Pain, Moderate(Pain Scale 4-6) Sodium Chloride (0.9 % Sodium Chloride Flush 3 Ml Syringe) 3 ml IVFLUSH QSHIFT [facility] Last Admin: 11/03/24 13:37 Dose: 3 ml Home Medications ?Medication ?Instructions ?Recorded ?Confirmed ?Last Taken ?Type albuterol sulfate 90 mcg/actuation 2 puff inhalation Q 6H PRN wheezing 01/15/24 10/29/24 10/28/24 History aerosol inhaler (Ventolin HFA) lidocaine 5 % topical patch 1 patch topical DAILY PRN Pain 01/15/24 10/29/24 10/28/24 History nitroglycerin 0.4 mg sublingual 0.4 mg sublingual D IRECTED PRN 01/15/24 10/29/24 10/28/24 History tablet Angina acetaminophen 325 mg tablet 650 mg PO Q4H PRN mild jamar n 03/11/24 10/29/24 10/28/24 History calcium carbonate (Tums) 200 mg PO TIDWM PRN Acid Ref lux 07/03/24 10/29/24 10/28/24 History Physical Exam 2 Vital Signs: Vital Signs: Last Vital Signs Temp 97.4 F 11/03/24 12:00 Pulse 83 11/03/24 12:00 Resp 20 11/03/24 12:00 BP 99/49 L 11/03/24 12:00 Pulse Ox 2 L 11/03/24 12:00 O2 Del Method Nasal Cannula 11/03/24 12:00 O2 Flow Rate 2 11/02/24 23:14 Oxygen Flow Rate 3 10/29/24 09:35 BMI result Body Mass Index 33.9 Const: General: cooperative HEENT: Head: Yes normal to inspection Face and sinus: Yes normal facial exam Mouth: Normal oral and palatal mucosa present Teeth and gingiva: d entition normal Eyes: General: appearance normal, both eyes and all related structures P upils: Equal, round and reactive pupils present Resp: Effort & Inspection: normal respiratory effort Cardio: Rate: regular rate Rhythm: regular rhythm GI: Palpation (GI): Soft to palpation and nontender : General: Yes no CVA tenderness Back/Spine/Pelvis: Back: no CVA tenderness Skin: General skin exam: no rashes or lesions noted Neuro: General: moves all extremities Cranial nerves: Yes Equal, round and reactive pupils present Extrem: General: Yes normal to inspection Psych: Appearance: grossly normal Results Labs 10/30/24 10:35 11/01/24 14:50 Assessment and Plan (1) Renal failure: Status: Acute Plan Reported Cdiff, If so fidaxomicin for 10 days.alterative po Vancomycin if not covered.
[2024-11-03 17:02] LABS: Glucose, Whole Blood 130 mg/dL (60-115)
[2024-11-03 19:36] VITALS: BP 86/50; PULSE 76; RESP 18; TEMP 36.4; O2SAT 98
[2024-11-03] MEDS: Lactated Ringers 500 ML 999 ML IV (20:13)
[2024-11-03 21:52] VITALS: BP 111/71
[2024-11-03 23:41] VITALS: BP 128/93; PULSE 87; RESP 18; TEMP 36.7; O2SAT 93
[2024-11-04] VITALS (7 sets, daily range): BP systolic 151–185; BP diastolic 66–96; PULSE 85–104; RESP 16–18; TEMP 36–36.8; O2SAT 97–100
[2024-11-04 07:03] LABS: Glucose, Whole Blood 83 mg/dL (60-115)
[2024-11-04] MEDS: 0.9 % Sodium Chloride Flush 3 ML SYRINGE IVFLUSH ×3 (08:10→21:25)
[2024-11-04 11:00] LABS: Glucose, Whole Blood 68 mg/dL (60-115)
--- NOTE | 2024-11-04 12:20 | MHC.CM.PN ---
Addendum entered by Abbie Galeano 11/04/24 14:09: [facility] accepted Patient; CM will continue to follow. Original Note: Per [facility]OUNDS discussion, Patient will need VNA at pa; referrals have been made to all area VNAs that accept Patient's insurance. CM will follow.
[2024-11-04 12:51] LABS: Glucose, Whole Blood 97 mg/dL (60-115)
[2024-11-04 13:04] LABS: Potassium 3.6 mmol/L (3.3-5.1)
--- NOTE | 2024-11-04 15:47 | P.PNIM_ITS ---
Subjective Subjective Date of Service: 11/04/24 Interval History: painful L TMA stump Review of Systems Review of Systems: Yes all other systems are reviewed and are negative Physical Exam 2 Vital Signs: Vital Signs: Last Vital Signs Temp 98.3 F 11/04/24 15:02 Pulse 98 11/04/24 15:02 Resp 16 11/04/24 15:02 BP 185/96 H 11/04/24 15:02 Pulse Ox 97 11/04/24 15:02 O2 Del Method Nasal Cannula 11/04/24 15:02 O2 Flow Rate 2 11/04/24 15:02 Oxygen Flow Rate 3 10/29/24 09:35 BMI result Body Mass Index 33.9 Gen: in no acute distress HEENT: sclera anicteric, moist mucus membranes Neck: supple Lungs: clear to auscultation bilaterally Heart: regular rate and rhythm, no murmurs Abd: soft, non-tender, non-distended Ext: no edema, bilateral TMAs Skin: warm/well-perfused, necrotic plantar wound with thick callous Neuro: alert and oriented x3, blind, no focal weakness Psych: appropriate affect Objective Data Active Medications Acetaminophen (Acetaminophen 325 Mg Tablet) 650 mg PO Q6H PRN PRN Reason: Pain, Mild 1-3,fever,headache Albuterol Sulfate (Albuterol Sulfate 90 Mcg 8 Gm Inhaler) 2 puff INHALE Q6H PRN PRN Reason: Wheezing Calcium Carbonate (Calcium Carbonate 750 Mg Tab.Chew) 750 mg PO TIDWM PRN PRN Reason: Acid Reflux Calcium Carbonate (Calcium Carbonate 750 Mg Tab.Chew) 750 mg PO Q4H PRN PRN Reason: Heartburn Carvedilol (Carvedilol 12.5 Mg Tablet) 12.5 mg PO BID [facility]; Protocol Last Admin: 11/04/24 09:23 Dose: Not Given Documented By: ROSIE Non-Admin Reason: Off unit: Dialysis Dextrose (Dextrose 50 % 25 Gm/50 Ml Syringe) 25 gm IVPUSH Q15M PRN; Protocol PRN Reason: per Hypoglycemia Standing Ord. Last Admin: 11/04/24 11:04 Dose: 25 gm Documented By: ROSIE Diphenhydramine HCl (Diphenhydramine Hcl 50 Mg/Ml Vial) 25 mg IVPUSH Q6H PRN PRN Reason: Itching Last Admin: 11/04/24 12:42 Dose: 25 mg Documented By: ROSIE Fidaxomicin (Fidaxomicin 200 Mg Tablet) 200 mg PO Q12H [facility] Last Admin: 11/04/24 12:38 Dose: Not Given Documented By: ROSIE Non-Admin Reason: npo & pt refused Glucose (Glucose Gel 15 Gm Gel..Gram.) 15 gm PO Q15M PRN; Protocol PRN Reason: per Hypoglycemia Standing Ord. Heparin Sodium (Porcine) (Heparin Sodium,Porcine 5,000 Unit/Ml Vial) 5,000 unit SUBCUT Q8H [facility] Last Admin: 11/04/24 12:38 Dose: Not Given Documented By: ROSIE Non-Admin Reason: hold for procedure Hydralazine HCl (Hydralazine Hcl 50 Mg Tablet) 50 mg PO TID [facility]; Protocol Last Admin: 11/04/24 12:42 Dose: 50 mg Documented By: ROSIE Hydralazine HCl (Hydralazine Hcl 20 Mg/Ml Vial) 10 mg IVPUSH Q6H PRN; Protocol PRN Reason: SBP>180 Last Admin: 11/04/24 15:05 Dose: 10 mg Documented By: ROSIE Hydromorphone HCl (Hydromorphone Hcl 0.5 Mg/0.5 Ml Syringe) 0.5 mg IVPUSH Q4H PRN; Protocol PRN Reason: Pain, Severe (Pain Scale 7-10) Last Admin: 11/04/24 15:05 Dose: 0.5 mg Documented By: ROSIE Insulin Human Lispro (Insulin Lispro 100 Unit/Ml 3 Ml Vial) 0 unit SUBCUT QIDACHS [facility]; Protocol Last Admin: 11/04/24 15:31 Dose: Not Given Documented By: ROSIE Non-Admin Reason: npo Lidocaine (Lidocaine 4 % Patch Adh..Patch) 1 patch TRANSDERMA DAILY PRN PRN Reason: Pain Magnesium Hydroxide (Milk Of Magnesia 30 Ml Oral.Susp) 30 ml PO DAILY PRN PRN Reason: Constipation Melatonin (Melatonin 3 Mg Tablet) 6 mg PO BEDTIME PRN PRN Reason: Insomnia Nitroglycerin (Nitroglycerin 0.4 Mg Tab.Subl) 0.4 mg SUBLINGUAL Q5M PRN PRN Reason: Angina Ondansetron HCl (Ondansetron Hcl 4 Mg/2 Ml Vial) 4 mg IVPUSH Q8H PRN PRN Reason: Nausea and Vomiting Last Admin: 11/04/24 06:28 Dose: 4 mg Documented By: JOSE MIGUEL Oxycodone HCl (Oxycodone Hcl Immed Release 5 Mg Tablet) 5 mg PO Q8H PRN PRN Reason: Pain, Moderate(Pain Scale 4-6) Sodium Chloride (0.9 % Sodium Chloride Flush 3 Ml Syringe) 3 ml IVFLUSH QSHIFT [facility] Last Admin: 11/04/24 12:44 Dose: 3 ml Documented By: ROSIE Labs 10/30/24 10:35 11/04/24 12:34 Labs: Laboratory Results - last 24 hr 11/03/24 11/04/24 11/04/24 16:56 06:56 10:53 POC Glucose 130 H 83 68 11/04/24 12:46 POC Glucose 97 Assessment and Plan (1) Multiple sclerosis: Status: Acute Plan d7 for 34yo F with ESRD on HD TuThSa, DM2 with polyneuropathy/retinopathy + legal blindness, PAD s/p bilateral TMA, chronic hypoxia on 3-4L O2, chronic HFrEF, multiple HD catheter line infections with MSSA/Stenotrophomonas/Pseudomonas, mood disorder, and chronic pain with opioid- seeking behavior; recently diagnosed MS presenting with R-sided weakness + MENDIOLA concerning for MS flare, also found to have hyperK MS flare - per Neuro, got 3d of high-dose IV methylprednisolone 10/29-10/31; weakness resolved - MRI with chronic demyelinating disease but no new acute lesions - PA for Cirilo submitted 11/01/24, will need Neuro clinic foll-wup hyperK due to missed HD [due to court appearance 10/28] - HD 10/29 and again 10/30, K 6.9->4.6, routine HD TuThSa [[facility] pt] HTN urgency - resolved with carvedilol + hydralazine necrotic plantar wound - OR debridement canceled 10/31 due to hyperglycemia; reschedule for tomorrow (OR full again today0 DM2 with steroid hyperglycemia - correction-dose lispro increased; d/c'ed Lantus now that glucose has improved chronic hypoxia - 3-4L O2 via [place] chronic HFrEF - carvedilol, HD to manage volume chronic pain syndrome - oxycodone, minimize IV Dilaudid VTE ppx - UFH dispo - anticipate home with VNA after wound debrided In my clinical judgment, the patient requires continued inpatient hospitalization for the following reasons: OR Total time managing care of this patient today: 35 minutes. Quality Stroke Does the patient have a stroke diagnosis?: No VTE Prior VTE?: No VTE Risk Level:: Medical - moderate - high VTE Device Contraindication: Treatment Not Indicated VTE Drug Contraindication: N/A - Med Ordered
--- NOTE | 2024-11-04 16:08 | PM.EVENT ---
Event Note Date of Service: 11/04/24 Event Note: Patient was on the schedule for debridement today However, OR schedule has been packed again The case had to be moved later and now, it appears that he will not be able to do the case until late tonight The patient does not want to be NPO that long We will reschedule debridement Okay to give patient food now Time Spent With Patient Time: Total time managing care of this patient today ____ minutes.
[2024-11-04 16:11] LABS: Glucose, Whole Blood 76 mg/dL (60-115)
--- NOTE | 2024-11-04 16:18 | PM.DS ---
DS: Providers Provider Date of Service: 11/08/24 Date of admission: 10/29/24 12:06 Date of discharge: 11/08/24 Primary care physician: Genevieve Casillas MD Consults: 10/29/24 12:22 Consult to Nephrology Routine Consulting Provider: [facility] Reason for consultation: Missed dialysis; HD on Consult to Neurology Routine Consulting Provider: [facility] Reason for consultation: ?MS flare 10/29/24 16:36 Consult to Wound Care Routine Reason for consultation: bilat chronic foot wounds 10/30/24 13:00 Consult to General Surgery Routine Consulting Provider: [facility] General Surgeons Reason for consultation: surgery assessment to debride some of the callus L foot 11/03/24 00:52 Consult to Infectious Diseases Routine Consulting Provider: [facility] Reason for consultation: C diff allergic to vanco Has provider been notified: No DS: Diagnosis Discharge Diagnosis (1) Multiple sclerosis: Status: Acute (2) ESRD on dialysis: Status: Acute (3) Acute hyperkalemia: Status: Acute (4) Plantar ulcer of left foot: Status: Acute (5) Relapsing remitting multiple sclerosis: Status: Acute (6) Multiple sclerosis exacerbation: Status: Acute (7) Steroid-induced hyperglycemia: Status: Acute DS: Summary Hospital Course Hospital Course: From the history and physical by the admitting hospitalist, Paramjit Rollins, 10/29/24: Pt is a 34-year-old female with a PMH significant for?ESRD on HD , inx-[id number] 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 Pt reports headache began yesterday with a pressure on the right side of her head. Lasted 2-3 hours. This morning at 05:00 pt awoke and found that the right side of her body felt both numb and ?heavy?. Reports has also had some difficulty speaking. Feels similar to how she previously did when diagnosed with MS. No chest pain or pressure. Chronic SOB at baseline. Chronic all-over body pain, around baseline. Reports missed dialysis yesterday due to being at court. In the ED pt's vitals were significant for elevated HR of 99 and hypertension as high as 213/119. Labs were significant for potassium 6.9, BUN 95, creatinine 11.54, T bili 1.6, and alk-phos 212. CT?of head showed new focal low-attenuation in the left thalamus new since exam on 09/04 with concern for infarct. EKG demonstrated normal sinus rhythm with chronic RBBB QTC 585. Pt was treated in the ED with with Dilaudid, IV Benadryl, metoclopramide, Lokelma, and Solu-Medrol 1 g. Pt is admitted to the hospital for treatment and further evaluation of right-sided weakness concerning for MS flare vs acute CVA as well as hyperkalemia in the setting of missed dialysis. 34yo F with ESRD on HD TuThSa, DM2 with polyneuropathy/retinopathy + legal blindness, PAD s/p bilateral TMA, chronic hypoxia on 3-4L O2, chronic HFrEF, multiple HD catheter line infections with MSSA/Stenotrophomonas/Pseudomonas, mood disorder, and chronic pain with opioid-seeking behavior; recently diagnosed MS presenting with R-sided weakness + MENDIOLA concerning for MS flare, also found to have hyperK Hospital course by problem: MS flare - per Neuro, got 3d of high-dose IV methylprednisolone 10/29-10/31; weakness resolved - MRI with chronic demyelinating disease but no new acute lesions - PA mariana Kerr submitted to [facility] 11/01/24, will need Neurology clinic follow-up hyperK due to missed HD [due to court appearance 10/28] - HD 10/29 and again 10/30, K 6.9->4.6, routine HD [facility] [[facility]ANE pt] done HTN urgency - resolved with carvedilol + hydralazine necrotic plantar wound - OR debridement canceled 10/31 due to hyperglycemia; done by Dr Rajput on 11/05/24. Wound care instructions: wet->dry, change daily,. DM2 with steroid hyperglycemia - treated with higher doses of prandial lispro as well as some basal glargine until steroid effect wore off Clostridium difficile diarrhea - treated with fidoxamicin, to continue on discharge; diarrhea resolved. She was discharged home with VNA services for PT and wound care. She should follow up with [facility] Wound Care and Neurology along with primary care. Time Attestation Discharge Coordination Time (in mins): 45 Quality: Safe Use of Opioids Does Pt have an Active Cancer Diagnosis on the Problem List?: No Quality: Stroke Does the patient have a stroke diagnosis?: No Physical Exam Vital Signs: Vital Signs: Temp Pulse Resp BP Pulse Ox O2 Del Method O2 Flow Rate 98.0 F 78 18 141/62 H 97 Nasal Cannula 1 11/08/24 07:53 11/08/24 07:53 11/08/24 07:53 11/08/24 07:53 11/08/24 07:53 11/08/24 07:53 11/08/24 07:53 Gen: in no acute distress HEENT: sclera anicteric, moist mucus membranes Neck: supple Lungs: clear to auscultation bilaterally Heart: regular rate and rhythm, no murmurs Abd: soft, non-tender, non-distended Ext: no edema, bilateral TMAs Skin: warm/well-perfused, 3cm debrided plantar wound on L TMA Neuro: alert and oriented x3, blind, no focal weakness Psych: appropriate affect DS: Data Data Completed and Pending Completed studies during hospitalization [Text1]: Laboratory Results WBC 5.8 X10*3/uL (4.8-10.8) 10/30/24 10:35 RBC 2.71 X10*6/uL (4.20-5.50) L 10/30/24 10:35 Hgb 8.5 g/dl (12.0-16.0) L 10/30/24 10:35 Hct 26.1 % (37.0-47.0) L 10/30/24 10:35 MCV 96.3 fL (80.0-98.0) 10/30/24 10:35 MCH 31.4 pg (27.0-33.0) 10/30/24 10:35 MCHC 32.6 g/dl (31.0-35.0) 10/30/24 10:35 RDW 14.3 % (11.0-16.0) 10/30/24 10:35 Plt Count 95 X10*3/uL (160-400) L 10/30/24 10:35 MPV 13.0 fL (9.4-12.3) H 10/30/24 10:35 Immature Gran % (Auto) 0.3 % (0.0-0.4) 10/29/24 10:06 Neut % (Auto) 78.4 % (45-73) H 10/29/24 10:06 Lymph % (Auto) 12.4 % (20-40) L 10/29/24 10:06 [place] % (Auto) 5.0 % (2-11) 10/29/24 10:06 Eos % (Auto) 3.2 % (0-4) 10/29/24 10:06 Baso % (Auto) 0.7 % (0-2) 10/29/24 10:06 Lymph # (Auto) 0.7 X10*3/uL (1.2-4.9) L 10/29/24 10:06 [place] # (Auto) 0.3 X10*3/uL (0.1-1.2) 10/29/24 10:06 Eos # (Auto) 0.2 X10*3/uL (0.0-0.4) 10/29/24 10:06 Baso # (Auto) 0.0 X10*3/uL (0.0-0.2) 10/29/24 10:06 Abs Immat Gran (auto) 0.02 X10*3/uL (0.00-0.03) 10/29/24 10:06 Absolute Neuts (auto) 4.7 x10*3/uL (2.0-8.3) 10/29/24 10:06 Absolute Nucleated RBC 0.000 X10*3/uL (0.0-0.012) 10/30/24 10:35 Nucleated RBC % (auto) 0.0 /100WBC (0.0-0.2) 10/30/24 10:35 Sodium 136 mmol/L (135-145) 11/01/24 14:50 Potassium 3.6 mmol/L (3.3-5.1) 11/04/24 12:34 Chloride 102 mmol/L (96-108) 11/01/24 14:50 Carbon Dioxide 20 mmol/L (22-29) L 11/01/24 14:50 Anion Gap 18 (12-20) 11/01/24 14:50 BUN 51 mg/dL (9-16) H 11/01/24 14:50 Creatinine 5.88 mg/dL (0.5-1.4) H* 11/01/24 14:50 Estim Creat Clear Calc 13.3 11/01/24 14:50 Estimated GFR 8 11/01/24 14:50 POC Glucose 105 mg/dL (60-115) 11/06/24 10:49 Random Glucose 248 mg/dL (60-115) H 11/01/24 14:50 Calcium 7.1 mg/dL (8.4-10.2) L 11/01/24 14:50 Total Bilirubin 1.6 mg/dL (0.0-1.0) H 10/29/24 10:06 AST 38 U/L (5-31) H 10/29/24 10:06 ALT 23 U/L (0-31) 10/29/24 10:06 Alkaline Phosphatase 212 U/L (39-117) H 10/29/24 10:06 Total Protein 9.0 g/dL (6.5-8.0) H 10/29/24 10:06 Albumin 4.7 g/dL (3.5-5.0) 10/29/24 10:06 C. difficile Tox B Gene POSITIVE (Negative) A* 11/02/24 23:22 C. difficile Toxin A&B Negative (Negative) 11/02/24 23:22 C. difficile Interpret SEE NOTE 11/02/24 23:[address] 10/29/24 10:57 IMPRESSION: There is focal low attenuation in the left thalamus that is new since the prior exam raising concern for infarct. Dr Kyle Maxwell notified via [place] text at 12:26pm ET Electronically signed by: Juan Alberto Guevara MD 10/29/2024 12:28 PM EDT Discharge Plan Discharge Anticipated Discharge Date/Time: 11/04/24 15:35 Patient Disposition: Home Health Service Discharge Diagnosis: multiple sclerosis exacerbation ESRD on HD, hyperkalemia plantar ulcer left foot C. difficile infection Referrals: pili farmer [Other] - 1 Week [facility] Wound Care Management [Provider Group] - 1 Week Tu Rajput MD [Physician, General Surgery] - 1 Week Genevieve Gtz MD [Primary Care Provider, Internal Medicine] - 1 Week Liv Malik MD [Physician, Neurology] - 2 Weeks Discharge Medications: New fidaxomicin [Dificid] 200 mg Tablet 200 mg PO Q12H Qty: 22 0RF Continued carvedilol 12.5 mg Tablet 12.5 mg PO BID 90 Days Qty: 180 0RF Protocol: Hold for SBP/HR < HOLD for SBP < : 90 HOLD for HR < : 60 hydralazine 50 mg Tablet 50 mg PO TID 90 Days Qty: 270 0RF Protocol: Hold for SBP< HOLD for SBP < : 90 acetaminophen 325 mg tablet 650 mg PO Q4H PRN (Reason: mild pain) (DME) FreeStyle Lite Strips Strip Qty: 100 0RF Rx Instructions: Test four times a day or as directed. (DME) blood-glucose meter [FreeStyle Lite Meter] Kit Qty: 1 0RF Rx Instructions: As Directed (DME) pen needle, diabetic 32 gauge x 1/4 needle Qty: 100 0RF Rx Instructions: Use four times a day or as directed. (DME) lancets [FreeStyle Lancets] 28 gauge misc Qty: 100 0RF Rx Instructions: Test four times a day or as directed. oxycodone 5 mg tablet 5 mg PO Q8H PRN (Reason: pain) Qty: 15 0RF Rx Instructions: Partial Fill upon patient request. lidocaine 5 % adhesive patch,medicated 1 patch topical DAILY PRN (Reason: Pain) nitroglycerin 0.4 mg tablet, sublingual 0.4 mg sublingual DIRECTED PRN (Reason: Angina) albuterol sulfate [Ventolin HFA] 90 mcg/actuation HFA aerosol inhaler 2 puff inhalation Q6H PRN (Reason: wheezing) calcium carbonate [Tums] 200 mg calcium (500 mg) Tablet,Chewable 200 mg PO TIDWM PRN (Reason: Acid Reflux) Discharge Orders: Discharge Order (Routine); Ordered 11/08/24 Ordered By: Paul Diane Diet: Diabetic diet Activity on Discharge: As tolerated Stand Alone Forms: Patient Portal Discharge page Print Language: Chadian Care Plan Goals: prevent MS flares renal health wound healing Health Concerns: multiple sclerosis exacerbation ESRD on HD, hyperkalemia plantar ulcer left foot C. difficile infection Plan of Treatment: follow up with Neurology [Dr Malik] in 2 weeks; JOVON for Cirilo avina, awaiting response continue dialysis [facility]Sa wound care as above; follow up with [facility] Wound Care in 1 week fidoxamicin 200 mg twice daily for 11 days Please follow up with your primary care doctor within 1 week. Return to the hospital if you experience recurrent or worsening symptoms. Assessment: See Discharge Summary.
[2024-11-05] VITALS (14 sets, daily range): BP systolic 116–164; BP diastolic 66–91; PULSE 78–94; RESP 12–18; TEMP 36–37; O2SAT 91–98
[2024-11-05] MEDS: 0.9 % Sodium Chloride Flush 3 ML SYRINGE IVFLUSH ×3 (08:14→21:29)
[2024-11-05 08:56] LABS: Glucose, Whole Blood 111 mg/dL (60-115)
[2024-11-05 11:00] LABS: Glucose, Whole Blood 99 mg/dL (60-115)
--- NOTE | 2024-11-05 13:57 | P.PNIM_ITS ---
Subjective Subjective Date of Service: 11/05/24 Interval History: No acute issues overnight. Remains NPO pending OR debridement Review of Systems Denies chest pain Denies shortness of breath Denies nausea vomiting diarrhea Denies fever chills Physical Exam 2 Vital Signs: Vital Signs: Last Vital Signs Temp 96.8 F 11/05/24 11:17 Pulse 78 11/05/24 11:17 Resp 16 11/05/24 11:17 BP 116/78 11/05/24 11:17 Pulse Ox 93 11/05/24 11:17 O2 Del Method Nasal Cannula 11/05/24 11:17 O2 Flow Rate 2 11/05/24 11:17 Oxygen Flow Rate 3 10/29/24 09:35 BMI result Body Mass Index 33.9 Const: Other: Awake alert no acute distress Resp: Other: Clear to auscultation bilaterally no rales rhonchi or wheezes Cardio: Other: No S4; positive S1-S2; no S3 murmurs rubs or gallops GI: Other: Soft nontender nondistended normoactive bowel sounds Extrem: Other: No edema bilaterally Objective Data Active Medications Acetaminophen (Acetaminophen 325 Mg Tablet) 650 mg PO Q6H PRN PRN Reason: Pain, Mild 1-3,fever,headache Albuterol Sulfate (Albuterol Sulfate 90 Mcg 8 Gm Inhaler) 2 puff INHALE Q6H PRN PRN Reason: Wheezing Calcium Carbonate (Calcium Carbonate 750 Mg Tab.Chew) 750 mg PO TIDWM PRN PRN Reason: Acid Reflux Calcium Carbonate (Calcium Carbonate 750 Mg Tab.Chew) 750 mg PO Q4H PRN PRN Reason: Heartburn Carvedilol (Carvedilol 12.5 Mg Tablet) 12.5 mg PO BID [facility]; Protocol Last Admin: 11/05/24 08:14 Dose: 12.5 mg Documented By: LAILA Dextrose (Dextrose 50 % 25 Gm/50 Ml Syringe) 25 gm IVPUSH Q15M PRN; Protocol PRN Reason: per Hypoglycemia Standing Ord. Last Admin: 11/04/24 11:04 Dose: 25 gm Documented By: ROSIE Diphenhydramine HCl (Diphenhydramine Hcl 50 Mg/Ml Vial) 25 mg IVPUSH Q6H PRN PRN Reason: Itching Last Admin: 11/05/24 08:15 Dose: 25 mg Documented By: LAILA Fidaxomicin (Fidaxomicin 200 Mg Tablet) 200 mg PO Q12H [facility] Last Admin: 11/05/24 12:58 Dose: 200 mg Documented By: LAILA Glucose (Glucose Gel 15 Gm Gel..Gram.) 15 gm PO Q15M PRN; Protocol PRN Reason: per Hypoglycemia Standing Ord. Heparin Sodium (Porcine) (Heparin Sodium,Porcine 5,000 Unit/Ml Vial) 5,000 unit SUBCUT Q8H [facility] Last Admin: 11/05/24 05:23 Dose: Not Given Documented By: SHARON Non-Admin Reason: Hold for procedure Hydralazine HCl (Hydralazine Hcl 50 Mg Tablet) 50 mg PO TID [facility]; Protocol Last Admin: 11/05/24 08:14 Dose: 50 mg Documented By: LAILA Hydralazine HCl (Hydralazine Hcl 20 Mg/Ml Vial) 10 mg IVPUSH Q6H PRN; Protocol PRN Reason: SBP>180 Last Admin: 11/04/24 15:05 Dose: 10 mg Documented By: ROSIE Hydromorphone HCl (Hydromorphone Hcl 0.5 Mg/0.5 Ml Syringe) 0.5 mg IVPUSH Q4H PRN; Protocol PRN Reason: Pain, Severe (Pain Scale 7-10) Last Admin: 11/05/24 12:58 Dose: 0.5 mg Documented By: LAILA Insulin Human Lispro (Insulin Lispro 100 Unit/Ml 3 Ml Vial) 0 unit SUBCUT QIDACHS [facility]; Protocol Last Admin: 11/05/24 11:03 Dose: Not Given Documented By: LAILA Non-Admin Reason: No Insulin Coverage Lidocaine (Lidocaine 4 % Patch Adh..Patch) 1 patch TRANSDERMA DAILY PRN PRN Reason: Pain Magnesium Hydroxide (Milk Of Magnesia 30 Ml Oral.Susp) 30 ml PO DAILY PRN PRN Reason: Constipation Melatonin (Melatonin 3 Mg Tablet) 6 mg PO BEDTIME PRN PRN Reason: Insomnia Nitroglycerin (Nitroglycerin 0.4 Mg Tab.Subl) 0.4 mg SUBLINGUAL Q5M PRN PRN Reason: Angina Ondansetron HCl (Ondansetron Hcl 4 Mg/2 Ml Vial) 4 mg IVPUSH Q8H PRN PRN Reason: Nausea and Vomiting Last Admin: 11/04/24 17:52 Dose: 4 mg Documented By: ROSIE Oxycodone HCl (Oxycodone Hcl Immed Release 5 Mg Tablet) 5 mg PO Q8H PRN PRN Reason: Pain, Moderate(Pain Scale 4-6) Sodium Chloride (0.9 % Sodium Chloride Flush 3 Ml Syringe) 3 ml IVFLUSH QSHIFT VASILE Last Admin: 11/05/24 08:14 Dose: 3 ml Documented By: LAILA Labs 10/30/24 10:35 11/04/24 12:34 Labs: Laboratory Results - last 24 hr 11/04/24 11/05/24 11/05/24 15:58 08:52 10:52 POC Glucose 76 111 99 Assessment and Plan (1) Multiple sclerosis exacerbation: Status: Acute (2) ESRD on dialysis: Status: Acute (3) DM foot ulcer: Status: Acute Plan 34yo F with ESRD on HD [facility], DM2 with polyneuropathy/retinopathy + legal blindness, PAD s/p bilateral TMA, chronic hypoxia on 3-4L O2, chronic HFrEF, multiple HD catheter line infections with MSSA/Stenotrophomonas/Pseudomonas, mood disorder, and chronic pain with opioid-seeking behavior; recently diagnosed MS presenting with R-sided weakness + MENDIOLA concerning for MS flare, also found to have hyperK 1.MS flare - 3d of high-dose IV methylprednisolone 10/29-10/31; weakness resolved - MRI with chronic demyelinating disease but no new acute lesions - PA for Auclaudioo submitted 11/01/24, will need Neuro clinic [facility] 2. End-stage renal disease on renal replacement therapy -continue Sunday dialysis 3.HTN urgency.. Resolved -continue current therapies -adjust as indicated 4.Necrotic plantar wound - OR debridement trhis afternoon -remains NPO 5.DM2 with steroid hyperglycemia -acceptable control on current therapies -follow sliding scale 6.Chronic HFrEF -stable and well compensated VTE ppx - UFH dispo - anticipate home with VNA after wound debrided In my clinical judgment, the patient requires continued inpatient hospitalization for the following reasons: OR Quality Stroke Does the patient have a stroke diagnosis?: No VTE Prior VTE?: No VTE Risk Level:: Medical - moderate - high VTE Device Contraindication: Treatment Not Indicated VTE Drug Contraindication: N/A - Med Ordered
[2024-11-05 14:40] LABS: Glucose, Whole Blood 83 mg/dL (60-115)
--- NOTE | 2024-11-05 15:47 | MHC.CM.PN ---
EMR reviewed and per MD rounds, pt is not medically cleared for discharge due to wound debridement in OR today.
--- NOTE | 2024-11-05 16:30 | MHC.SHP ---
Pre-Procedural Eval Section A - 24 Hr Update-Section A only Date of Service: 11/05/24 The patient is an INPATIENT: Yes Changes since office visit: No Cold of Flu in the past 2 weeks, No New Medical Problems, No Changes in Medication and No Patient answered all questions The patient has been examined within 24 hours of the surgical procedure. The History & Physical has been completed within 30 days and I have reviewed it.: Yes Section B - Complete if H&P > 30 days Chief Complaint: Missed dialysis Allergies: Allergies Allergy/AdvReac Type Severity Reaction Status Date / Time gabapentin Allergy Severe Facial Verified 10/29/24 09:37 Swelling tramadol Allergy Severe Facial Verified 10/29/24 09:37 Swelling vancomycin Allergy Severe Anaphylaxis Verified 10/29/24 09:37 azithromycin (From Zithromax) Allergy Intermediate Hives Verified 10/29/24 09:37 morphine (MORPHINE) Allergy Intermediate Itching Verified 10/29/24 09:37 Plan I have reviewed the history and physical and performed a pertinent physical examination on my patient. No changes have occurred unless specified. Time Spent With Patient Time: Total time managing care of this patient today ____ minutes.
--- NOTE | 2024-11-05 16:54 | P.OP_ITS ---
Operative Note Operative Note Date of Service: 11/05/24 Narrative: Preop diagnosis: painful thick callus, left plantar area of foot Postop diagnosis: The same Procedure: Excisional debridement of callus left plantar area of foot Surgeon: Tu Rajput MD The patient is a 34 year old female with multiple medical problems including this has urinary disease, known to have multiple ulcers and previous debridement and amputation of the feet. She has had this chronic pain on a thick callus of the plantar aspect of the foot this has about a 3 cm callus. She had insisted on having this excised. She understood the technique of the planned procedure as was the risks, benefits , and alternatives She was placed supine under monitored anesthesia care. The left foot was prepped and draped in the usual sterile fashion. She had a previous TMA on this as well. The very thick callus was seen plantar aspect and was sutured about 3 cm in diameter. A surgical time-out was done. I then proceeded to excise this callus using a blade number [id number]. This incision was carried down through the full-thickness of the surrounding skin and part of the subcutaneous layer. This callus was sent as a specimen. I used electrocautery to achieve hemostasis. I then applied a wet-to-dry dressing and wrapped the foot with Kerlix roll. She tolerated procedure well. There were no immediate complications. There was minimal blood loss. She was transferred to the recovery room with stable vital signs.
[2024-11-05 18:21] LABS: Glucose, Whole Blood 67 mg/dL (60-115)
[2024-11-05 18:48] LABS: Glucose, Whole Blood 86 mg/dL (60-115)
[2024-11-05 20:49] LABS: Glucose, Whole Blood 213 mg/dL (60-115)
[2024-11-06] VITALS (7 sets, daily range): BP systolic 125–149; BP diastolic 60–83; PULSE 78–91; RESP 16–18; TEMP 36.1–37.2; O2SAT 94–98
--- NOTE | 2024-11-06 07:56 | P.PNGS_ITS ---
Subjective Subjective Date of Service: 11/06/24 <Regino Sauceda PA-C - Last Filed: 11/06/24 08:02> 11/06/24 <Tu Rajput MD - Last Filed: 11/06/24 09:45> Interval history: doing okay, having pain in the left foot, about the same as yesterday. < Regino Sauceda PA-C - Last Filed: 11/06/24 08:02> Physical Exam 2 Vital Signs: Vital Signs: Last Vital Signs Temp 96.9 F 11/06/24 07:10 Pulse 78 11/06/24 07:10 Resp 16 11/06/24 07:10 BP 125/67 11/06/24 07:10 Pulse Ox 97 11/06/24 07:10 O2 Del Method Nasal Cannula 11/06/24 07:10 O2 Flow Rate 2 11/06/24 07:10 Oxygen Flow Rate 3 10/29/24 09:35 BMI result Body Mass Index 33.9 <Regino Sauceda PA-C - Last Filed: 11/06/24 08:02> Const: General: no acute distress <Regino Sauceda PA-C - Last Filed: 11/06/24 08:02> Orientation/consciousness: patient oriented x3 <LEXA Gomez Last Filed: 11/06/24 08:02> Skin: Other: left TMA, plantar wound 3x3cm, good granulation, moderate bloody discharge. no purulence <Regino Sauceda PA-C - Last Filed: 11/06/24 08:02> Neuro: General: patient oriented x3 <LEXA Gomez Last Filed: 11/06/24 08:02> Objective Data Active Medications Acetaminophen (Acetaminophen 325 Mg Tablet) 650 mg PO Q6H PRN PRN Reason: Pain, Mild 1-3,fever,headache Albuterol Sulfate (Albuterol Sulfate 90 Mcg 8 Gm Inhaler) 2 puff INHALE Q6H PRN PRN Reason: Wheezing Calcium Carbonate (Calcium Carbonate 750 Mg Tab.Chew) 750 mg PO TIDWM PRN PRN Reason: Acid Reflux Calcium Carbonate (Calcium Carbonate 750 Mg Tab.Chew) 750 mg PO Q4H PRN PRN Reason: Heartburn Carvedilol (Carvedilol 12.5 Mg Tablet) 12.5 mg PO BID [facility]; Protocol Last Admin: 11/05/24 21:29 Dose: 12.5 mg Documented By: ALEJANDRA Dextrose (Dextrose 50 % 25 Gm/50 Ml Syringe) 25 gm IVPUSH Q15M PRN; Protocol PRN Reason: per Hypoglycemia Standing Ord. Last Admin: 11/04/24 11:04 Dose: 25 gm Documented By: ROSIE Diphenhydramine HCl (Diphenhydramine Hcl 50 Mg/Ml Vial) 25 mg IVPUSH Q6H PRN PRN Reason: Itching Last Admin: 11/06/24 04:10 Dose: 25 mg Documented By: ALEJANDRA Fidaxomicin (Fidaxomicin 200 Mg Tablet) 200 mg PO Q12H [facility] Last Admin: 11/06/24 01:15 Dose: 200 mg Documented By: ALEJANDRA Glucose (Glucose Gel 15 Gm Gel..Gram.) 15 gm PO Q15M PRN; Protocol PRN Reason: per Hypoglycemia Standing Ord. Heparin Sodium (Porcine) (Heparin Sodium,Porcine 5,000 Unit/Ml Vial) 5,000 unit SUBCUT Q8H [facility] Last Admin: 11/06/24 05:23 Dose: Not Given Documented By: ALEJANDRA Non-Admin Reason: Patient Refused Hydralazine HCl (Hydralazine Hcl 50 Mg Tablet) 50 mg PO TID [facility]; Protocol Last Admin: 11/05/24 21:29 Dose: 50 mg Documented By: ALEJANDRA Hydralazine HCl (Hydralazine Hcl 20 Mg/Ml Vial) 10 mg IVPUSH Q6H PRN; Protocol PRN Reason: SBP>180 Last Admin: 11/04/24 15:05 Dose: 10 mg Documented By: ROSIE Hydromorphone HCl (Hydromorphone Hcl 0.5 Mg/0.5 Ml Syringe) 0.5 mg IVPUSH Q3H PRN; Protocol PRN Reason: Pain, Severe (Pain Scale 7-10) Last Admin: 11/06/24 05:22 Dose: 0.5 mg Documented By: ALEJANDRA Insulin Human Lispro (Insulin Lispro 100 Unit/Ml 3 Ml Vial) 0 unit SUBCUT QIDACHS [facility]; Protocol Last Admin: 11/05/24 21:36 Dose: Not Given Documented By: ALEJANDRA Non-Admin Reason: Patient Refused Lidocaine (Lidocaine 4 % Patch Adh..Patch) 1 patch TRANSDERMA DAILY PRN PRN Reason: Pain Magnesium Hydroxide (Milk Of Magnesia 30 Ml Oral.Susp) 30 ml PO DAILY PRN PRN Reason: Constipation Melatonin (Melatonin 3 Mg Tablet) 6 mg PO BEDTIME PRN PRN Reason: Insomnia Naloxone HCl (Naloxone Hcl 0.4 Mg/Ml Vial) 0.04 mg IVPUSH Q5M PRN PRN Reason: Excessive sedation or RR < 8 Nitroglycerin (Nitroglycerin 0.4 Mg Tab.Subl) 0.4 mg SUBLINGUAL Q5M PRN PRN Reason: Angina Ondansetron HCl (Ondansetron Hcl 4 Mg/2 Ml Vial) 4 mg IVPUSH Q8H PRN PRN Reason: Nausea and Vomiting Last Admin: 11/04/24 17:52 Dose: 4 mg Documented By: ROSIE Oxycodone HCl (Oxycodone Hcl Immed Release 5 Mg Tablet) 5 mg PO Q8H PRN PRN Reason: Pain, Moderate(Pain Scale 4-6) Sodium Chloride (0.9 % Sodium Chloride Flush 3 Ml Syringe) [address] [facility] Last Admin: 11/05/24 21:29 Dose: 3 ml Documented By: ALEJANDRA <Regino Sauceda PA-C - Last Filed: 11/06/24 08:02> Labs CBC & Chem 7: 10/30/24 10:35 11/04/24 12:34 <Regino Sauceda PA-C - Last Filed: 11/06/24 08:02> Labs: Laboratory Results - last 24 hr 11/05/24 11/05/24 11/05/24 08:52 10:52 14:35 POC Glucose 111 99 83 11/05/24 11/05/24 11/05/24 18:17 18:44 20:46 POC Glucose 67 86 213 H <Regino Sauceda PA-C - Last Filed: 11/06/24 08:02> Procedures Date of Service Date of Service: 11/06/24 <Regino Sauceda PA-C - Last Filed: 11/06/24 08:02> 11/06/24 <Tu Rajput MD - Last Filed: 11/06/24 09:45> Progress Note: A&P Assessment and plan (1) DM foot ulcer: Status: Acute <Regino Sauceda PA-C - Last Filed: 11/06/24 08:02> Assessment and Plan: Dressings with some saturation Excision site clean as per JOVON Dressings changed Continue daily wound care I had seen the patient independently <Tu Rajput MD - Last Filed: 11/06/24 09:45> Assessment and Plan: POD1 s/p left foot wound debridment. Continuing to have pain in the foot. dressings saturated with bloody drainage at the time of evaluation. Dressings removed, wound appears good, with granulation tissue, oozing some blood. no purulence note. I used wet to dry dressings reinforced with gauze and wrapped the foot. daily dressings changes. wet to dry gauze recommend tight glucose control further management per medicine. will follow throughout admission. <Regino Sauceda PA-C - Last Filed: 11/06/24 08:02> Time Spent With Patient Time: Total time managing care of this patient today ____ minutes. <Regino Sauceda PA-C - Last Filed: 11/06/24 08:02> Quality Stroke Does the patient have a stroke diagnosis?: No <Regino Sauceda PA-C - Last Filed: 11/06/24 08:02> VTE Prior VTE?: No <Regino Sauceda PA-C - Last Filed: 11/06/24 08:02> VTE Risk Level:: Medical - moderate - high <Regino Sauceda PA-C - Last Filed: 11/06/24 08:02> VTE Device Contraindication: Treatment Not Indicated <Regino Sauceda PA-C - Last Filed: 11/06/24 08:02> VTE Drug Contraindication: N/A - Med Ordered <Regino Sauceda PA-C - Last Filed: 11/06/24 08:02>
[2024-11-06] MEDS: 0.9 % Sodium Chloride Flush 3 ML SYRINGE IVFLUSH ×3 (08:53→20:48)
[2024-11-06 10:56] LABS: Glucose, Whole Blood 105 mg/dL (60-115)
--- NOTE | 2024-11-06 11:24 | HO.POSTANES ---
Post Anesthesia Evaluation Post Anesthesia Evaluation Date of Service: 11/06/24 Vital Signs: Vital Signs Temp Pulse Resp BP Pulse Ox O2 Del Method O2 Flow Rate 11/06/24 10:52 97.6 F 80 18 149/83 H 96 Nasal Cannula 2 11/06/24 08:52 78 125/67 11/06/24 08:52 125/67 11/06/24 07:10 96.9 F 78 16 125/67 97 Nasal Cannula 2 11/06/24 03:14 97.0 F 80 17 147/67 H 94 Nasal Cannula 2 11/05/24 23:44 97.0 F 84 17 139/68 94 Nasal Cannula 2 Anesthesia: General Mental Status: Awake Pain Control: Satisfactory Hydration: Adequate Anesthesia-Related Issues: No Anes. Related Issues
--- NOTE | 2024-11-06 13:33 | P.PNNP_ITS ---
Subjective Subjective Date of Service: 11/06/24 Interval history: Seen and examined,e vnets noted Physical Exam 2 Vital Signs: Vital Signs: Last Vital Signs Temp 97.6 F 11/06/24 10:52 Pulse 80 11/06/24 10:52 Resp 18 11/06/24 10:52 BP 149/83 H 11/06/24 10:52 Pulse Ox 96 11/06/24 10:52 O2 Del Method Nasal Cannula 11/06/24 10:52 O2 Flow Rate 2 11/06/24 10:52 Oxygen Flow Rate 3 10/29/24 09:35 BMI result Body Mass Index 33.9 Const: General: cooperative and no acute distress O rientation/consciousness: patient oriented x3 Limitations: No language barrier HEENT: Head: Yes normal to inspection Face and sinus: Yes normal facial exam Mouth: Normal oral and palatal mucosa present Teeth and gingiva: d entition normal Eyes: General: appearance normal, both eyes and all related structures P upils: Equal, round and reactive pupils present Resp: Effort & Inspection: normal respiratory effort and able to speak in complete sentences Cardio: Rate: regular rate Rhythm: regular rhythm GI: Palpation (GI): Soft to palpation and nontender : General: Yes no CVA tenderness Back/Spine/Pelvis: Back: no CVA tenderness Skin: Other: left foot: 1.5x1.5 cm wound on the plantar aspect of the left foot. with some areas of necrosis. There is a thick callous without drainage. Very painful to the touch. superficial open wound on the dorsum of the right foot. scant bloody drainage. General skin exam: no rashes or lesions noted Neuro: Other: She is alert and awake talking to someone over the phone. He is legally blind. There was no obvious arm weakness. Speech is okay. There was no significant change in her exam from previous interaction General: patient oriented x3 and moves all extremities Cranial nerves: Y es Equal, round and reactive pupils present Extrem: General: Yes normal to inspection Psych: Appearance: grossly normal Objective Data Labs 10/30/24 10:35 11/04/24 12:34 Labs: Laboratory Results - last 24 hr 11/05/24 11/05/24 11/05/24 14:35 18:17 18:44 POC Glucose 83 67 86 11/05/24 11/06/24 20:46 10:49 POC Glucose 213 H 105 Procedures Date of Service Date of Service: 11/06/24 Assessment & Plan Assessment and plan (1) Renal failure: Status: Acute Plan 34yo F with ESRD on HD TuThSa, DM2 with polyneuropathy/retinopathy + legal blindness, PAD s/p bilateral TMA, chronic hypoxia on 3-4L O2, chronic HFrEF, multiple HD catheter line infections with MSSA/Stenotrophomonas/Pseudomonas, mood disorder, and chronic pain with opioid-seeking behavior; recently diagnosed MS presenting with R-sided weakness + MENDIOLA concerning for MS flare, also found to have hyperK ESRD: TTS [facility] HyperK Neuro: MS flare HTN: meds as noted Nephrogenic anemia MBD of CKD REC: cont HD TTS, cont to track labs and adj meds as noted; Or debridment today Will follow w team Time Spent With Patient Time: Total time managing care of this patient today ____ minutes. Progress Note: Quality Stroke Does the patient have a stroke diagnosis?: No
--- NOTE | 2024-11-06 13:36 | P.PNNP_ITS ---
Subjective Subjective Date of Service: 11/06/24 Interval history: Seen and examined,evnets noted currently on HD Physical Exam 2 Vital Signs: Vital Signs: Last Vital Signs Temp 97.6 F 11/06/24 10:52 Pulse 80 11/06/24 10:52 Resp 18 11/06/24 10:52 BP 149/83 H 11/06/24 10:52 Pulse Ox 96 11/06/24 10:52 O2 Del Method Nasal Cannula 11/06/24 10:52 O2 Flow Rate 2 11/06/24 10:52 Oxygen Flow Rate 3 10/29/24 09:35 BMI result Body Mass Index 33.9 Const: General: cooperative and no acute distress O rientation/consciousness: patient oriented x3 Limitations: No language barrier HEENT: Head: Yes normal to inspection Face and sinus: Yes normal facial exam Mouth: Normal oral and palatal mucosa present Teeth and gingiva: d entition normal Eyes: General: appearance normal, both eyes and all related structures P upils: Equal, round and reactive pupils present Resp: Effort & Inspection: normal respiratory effort and able to speak in complete sentences Cardio: Rate: regular rate Rhythm: regular rhythm GI: Palpation (GI): Soft to palpation and nontender : General: Yes no CVA tenderness Back/Spine/Pelvis: Back: no CVA tenderness Skin: Other: left foot: 1.5x1.5 cm wound on the plantar aspect of the left foot. with some areas of necrosis. There is a thick callous without drainage. Very painful to the touch. superficial open wound on the dorsum of the right foot. scant bloody drainage. General skin exam: no rashes or lesions noted Neuro: Other: She is alert and awake talking to someone over the phone. He is legally blind. There was no obvious arm weakness. Speech is okay. There was no significant change in her exam from previous interaction General: patient oriented x3 and moves all extremities Cranial nerves: Y es Equal, round and reactive pupils present Extrem: General: Yes normal to inspection Psych: Appearance: grossly normal Objective Data Labs 10/30/24 10:35 11/04/24 12:34 Labs: Laboratory Results - last 24 hr 11/05/24 11/05/24 11/05/24 14:35 18:17 18:44 POC Glucose 83 67 86 09/10/25 09/11/25 20:46 10:49 POC Glucose 213 H 105 Procedures Date of Service Date of Service: 11/06/24 Assessment & Plan Assessment and plan (1) Renal failure: Status: Acute Plan 34yo F with ESRD on HD TuThSa, DM2 with polyneuropathy/retinopathy + legal blindness, PAD s/p bilateral TMA, chronic hypoxia on 3-4L O2, chronic HFrEF, multiple HD catheter line infections with MSSA/Stenotrophomonas/Pseudomonas, mood disorder, and chronic pain with opioid-seeking behavior; recently diagnosed MS presenting with R-sided weakness + MENDIOLA concerning for MS flare, also found to have hyperK ESRD: TTS [facility] HyperK Neuro: MS flare HTN: meds as noted Nephrogenic anemia: cont EPO and Fe as per protocol MBD of CKD REC: cont HD TTS, cont to track labs and adj meds as noted d/c planning Will follow w team Time Spent With Patient Time: Total time managing care of this patient today ____ minutes. Progress Note: Quality Stroke Does the patient have a stroke diagnosis?: No
--- NOTE | 2024-11-06 14:56 | P.PNIM_ITS ---
Subjective Subjective Date of Service: 11/06/24 Interval History: No acute issues overnight. Dialysis today. . . No acute issues however complain of extreme pain after dialysis Review of Systems Denies chest pain Denies shortness of breath Denies nausea vomiting diarrhea Denies fever chills Physical Exam 2 Vital Signs: Vital Signs: Last Vital Signs Temp 97.6 F 11/06/24 10:52 Pulse 80 11/06/24 10:52 Resp 18 11/06/24 10:52 BP 149/83 H 11/06/24 10:52 Pulse Ox 96 11/06/24 10:52 O2 Del Method Nasal Cannula 11/06/24 10:52 O2 Flow Rate 2 11/06/24 10:52 Oxygen Flow Rate 3 10/29/24 09:35 BMI result Body Mass Index 33.9 Const: Other: Awake alert no acute distress Resp: Other: Clear to auscultation bilaterally no rales rhonchi or wheezes Cardio: Other: No S4; positive S1-S2; no S3 murmurs rubs or gallops GI: Other: Soft nontender nondistended normoactive bowel sounds Extrem: Other: No edema bilaterally Objective Data Active Medications Acetaminophen (Acetaminophen 325 Mg Tablet) 650 mg PO Q6H PRN PRN Reason: Pain, Mild 1-3,fever,headache Albuterol Sulfate (Albuterol Sulfate 90 Mcg 8 Gm Inhaler) 2 puff INHALE Q6H PRN PRN Reason: Wheezing Calcium Carbonate (Calcium Carbonate 750 Mg Tab.Chew) 750 mg PO TIDWM PRN PRN Reason: Acid Reflux Calcium Carbonate (Calcium Carbonate 750 Mg Tab.Chew) 750 mg PO Q4H PRN PRN Reason: Heartburn Carvedilol (Carvedilol 12.5 Mg Tablet) 12.5 mg PO BID [facility]; Protocol Last Admin: 11/06/24 08:52 Dose: 12.5 mg Documented By: LAILA Dextrose (Dextrose 50 % 25 Gm/50 Ml Syringe) 25 gm IVPUSH Q15M PRN; Protocol PRN Reason: per Hypoglycemia Standing Ord. Last Admin: 11/04/24 11:04 Dose: 25 gm Documented By: ROSIE Diphenhydramine HCl (Diphenhydramine Hcl 50 Mg/Ml Vial) 25 mg IVPUSH Q6H PRN PRN Reason: Itching Last Admin: 11/06/24 11:57 Dose: 25 mg Documented By: LAILA Fidaxomicin (Fidaxomicin 200 Mg Tablet) 200 mg PO Q12H [facility] Last Admin: 11/06/24 13:45 Dose: 200 mg Documented By: LAILA Glucose (Glucose Gel 15 Gm Gel..Gram.) 15 gm PO Q15M PRN; Protocol PRN Reason: per Hypoglycemia Standing Ord. Heparin Sodium (Porcine) (Heparin Sodium,Porcine 5,000 Unit/Ml Vial) 5,000 unit SUBCUT Q8H [facility] Last Admin: 11/06/24 05:23 Dose: Not Given Documented By: ALEJANDRA Non-Admin Reason: Patient Refused Hydralazine HCl (Hydralazine Hcl 50 Mg Tablet) 50 mg PO TID [facility]; Protocol Last Admin: 11/06/24 08:52 Dose: 50 mg Documented By: LAILA Hydralazine HCl (Hydralazine Hcl 20 Mg/Ml Vial) 10 mg IVPUSH Q6H PRN; Protocol PRN Reason: SBP>180 Last Admin: 11/04/24 15:05 Dose: 10 mg Documented By: ROSIE Hydromorphone HCl (Hydromorphone Hcl 0.5 Mg/0.5 Ml Syringe) 0.5 mg IVPUSH Q3H PRN; Protocol PRN Reason: Pain, Severe (Pain Scale 7-10) Last Admin: 11/06/24 13:15 Dose: 0.5 mg Documented By: RAFAEL Insulin Human Lispro (Insulin Lispro 100 Unit/Ml 3 Ml Vial) 0 unit SUBCUT QIDACHS [facility]; Protocol Last Admin: 11/06/24 11:18 Dose: Not Given Documented By: LAILA Non-Admin Reason: No Insulin Coverage Lidocaine (Lidocaine 4 % Patch Adh..Patch) 1 patch TRANSDERMA DAILY PRN PRN Reason: Pain Magnesium Hydroxide (Milk Of Magnesia 30 Ml Oral.Susp) 30 ml PO DAILY PRN PRN Reason: Constipation Melatonin (Melatonin 3 Mg Tablet) 6 mg PO BEDTIME PRN PRN Reason: Insomnia Naloxone HCl (Naloxone Hcl 0.4 Mg/Ml Vial) 0.04 mg IVPUSH Q5M PRN PRN Reason: Excessive sedation or RR < 8 Nitroglycerin (Nitroglycerin 0.4 Mg Tab.Subl) 0.4 mg SUBLINGUAL Q5M PRN PRN Reason: Angina Ondansetron HCl (Ondansetron Hcl 4 Mg/2 Ml Vial) 4 mg IVPUSH Q8H PRN PRN Reason: Nausea and Vomiting Last Admin: 11/06/24 08:52 Dose: 4 mg Documented By: LAILA Oxycodone HCl (Oxycodone Hcl Immed Release 5 Mg Tablet) 5 mg PO Q8H PRN PRN Reason: Pain, Moderate(Pain Scale 4-6) Sodium Chloride (0.9 % Sodium Chloride Flush 3 Ml Syringe) 3 ml IVFLUSH QSHIFT [facility] Last Admin: 11/06/24 08:53 Dose: 3 ml Documented By: LAILA Labs 10/30/24 10:35 11/04/24 12:34 Labs: Laboratory Results - last 24 hr 11/05/24 11/05/24 11/05/24 18:17 18:44 20:46 POC Glucose 67 86 213 H 11/06/24 10:49 POC Glucose 105 Assessment and Plan (1) Multiple sclerosis exacerbation: Status: Acute (2) Plantar ulcer of left foot: Status: Acute (3) ESRD on dialysis: Status: Acute Plan 34yo F with ESRD on HD TuThSa, DM2 with polyneuropathy/retinopathy + legal blindness, PAD s/p bilateral TMA, chronic hypoxia on 3-4L O2, chronic HFrEF, multiple HD catheter line infections with MSSA/Stenotrophomonas/Pseudomonas, mood disorder, and chronic pain with opioid-seeking behavior; recently diagnosed MS presenting with R-sided weakness + MENDIOLA concerning for MS flare, also found to have hyperK 1.MS flare - 3d of high-dose IV methylprednisolone 10/29-10/31; weakness resolved - continue to monitor clinically 2. End-stage renal disease on renal replacement therapy -continue Sunday dialysis -david [facility] in am 3.HTN urgency.. Resolved -continue current therapies -adjust as indicated current regimen 4.Necrotic plantar wound - OR debridement without issue -outpatient wound care 5.DM2 with steroid hyperglycemia -acceptable control on current therapies -follow sliding scale 6.Chronic HFrEF -stable and well compensated VTE ppx - UFH dispo - anticipate home with VNA after wound debrided In my clinical judgment, the patient requires continued inpatient hospitalization for the following reasons: OR Quality Stroke Does the patient have a stroke diagnosis?: No VTE Prior VTE?: No VTE Risk Level:: Medical - moderate - high VTE Device Contraindication: Treatment Not Indicated VTE Drug Contraindication: N/A - Med Ordered
[2024-11-07] VITALS (7 sets, daily range): BP systolic 106–146; BP diastolic 53–70; PULSE 81–87; RESP 12–20; TEMP 35.8–36.6; O2SAT 94–100
[2024-11-07] MEDS: 0.9 % Sodium Chloride Flush 3 ML SYRINGE IVFLUSH ×3 (08:00→22:16)
--- NOTE | 2024-11-07 10:38 | HO.PM.IMPN ---
Subjective Subjective Date of Service: 11/07/24 Interval History: POD2 wound debridement, c/o severe L foot pain, appealing discharge home Review of Systems Review of Systems: Yes all other systems are reviewed and are negative Physical Exam Vital Signs: Vital Signs: Last Vital Signs Temp 97.6 F 11/07/24 06:51 Pulse 82 11/07/24 06:51 Resp 18 11/07/24 06:51 BP 110/57 L 11/07/24 06:51 Pulse Ox 99 11/07/24 06:51 O2 Del Method Nasal Cannula 11/07/24 06:51 O2 Flow Rate 2 11/07/24 06:51 Oxygen Flow Rate 3 10/29/24 09:35 BMI result Body Mass Index 33.9 Gen: in no acute distress HEENT: sclera anicteric, moist mucus membranes Neck: supple Lungs: clear to auscultation bilaterally Heart: regular rate and rhythm, no murmurs Abd: soft, non-tender, non-distended Ext: no edema, bilateral TMAs Skin: warm/well-perfused, 3 cm plantar ulcer with granulation tissues Neuro: alert and oriented x3, blind, no focal weakness Psych: appropriate affect Objective Data Active Medications Acetaminophen (Acetaminophen 325 Mg Tablet) 650 mg PO Q6H PRN PRN Reason: Pain, Mild 1-3,fever,headache Albuterol Sulfate (Albuterol Sulfate 90 Mcg 8 Gm Inhaler) 2 puff INHALE Q6H PRN PRN Reason: Wheezing Calcium Carbonate (Calcium Carbonate 750 Mg Tab.Chew) 750 mg PO TIDWM PRN PRN Reason: Acid Reflux Calcium Carbonate (Calcium Carbonate 750 Mg Tab.Chew) 750 mg PO Q4H PRN PRN Reason: Heartburn Carvedilol (Carvedilol 12.5 Mg Tablet) 12.5 mg PO BID [facility]AS[facility]; Protocol Last Admin: 11/07/24 07:58 Dose: 12.5 mg Documented By: PER Dextrose (Dextrose 50 % 25 Gm/50 Ml Syringe) 25 gm IVPUSH Q15M PRN; Protocol PRN Reason: per Hypoglycemia Standing Ord. Last Admin: 11/04/24 11:04 Dose: 25 gm Documented By: ROSIE Diphenhydramine HCl (Diphenhydramine Hcl 50 Mg/Ml Vial) 25 mg IVPUSH Q6H PRN PRN Reason: Itching Last Admin: 11/07/24 07:58 Dose: 25 mg Documented By: PER Fidaxomicin (Fidaxomicin 200 Mg Tablet) 200 mg PO Q12H [facility] Last Admin: 11/07/24 00:56 Dose: 200 mg Documented By: ALEJANDRA Glucose (Glucose Gel 15 Gm Gel..Gram.) 15 gm PO Q15M PRN; Protocol PRN Reason: per Hypoglycemia Standing Ord. Heparin Sodium (Porcine) (Heparin Sodium,Porcine 5,000 Unit/Ml Vial) 5,000 unit SUBCUT Q8H [facility] Last Admin: 11/07/24 06:22 Dose: Not Given Documented By: ALEJANDRA Non-Admin Reason: Patient Refused Hydralazine HCl (Hydralazine Hcl 50 Mg Tablet) 50 mg PO TID [facility]; Protocol Last Admin: 11/07/24 07:58 Dose: 50 mg Documented By: PER Hydralazine HCl (Hydralazine Hcl 20 Mg/Ml Vial) 10 mg IVPUSH Q6H PRN; Protocol PRN Reason: SBP>180 Last Admin: 11/04/24 15:05 Dose: 10 mg Documented By: ROSIE Hydromorphone HCl (Hydromorphone Hcl 0.5 Mg/0.5 Ml Syringe) 0.25 mg IVPUSH Q6H PRN; Protocol PRN Reason: Pain, Severe (Pain Scale 7-10) Insulin Human Lispro (Insulin Lispro 100 Unit/Ml 3 Ml Vial) 0 unit SUBCUT QIDACHS [facility]; Protocol Last Admin: 11/07/24 07:52 Dose: Not Given Documented By: PER Non-Admin Reason: Patient Refused Lidocaine (Lidocaine 4 % Patch Adh..Patch) 1 patch TRANSDERMA DAILY PRN PRN Reason: Pain Magnesium Hydroxide (Milk Of Magnesia 30 Ml Oral.Susp) 30 ml PO DAILY PRN PRN Reason: Constipation Melatonin (Melatonin 3 Mg Tablet) 6 mg PO BEDTIME PRN PRN Reason: Insomnia Naloxone HCl (Naloxone Hcl 0.4 Mg/Ml Vial) 0.04 mg IVPUSH Q5M PRN PRN Reason: Excessive sedation or RR < 8 Nitroglycerin (Nitroglycerin 0.4 Mg Tab.Subl) 0.4 mg SUBLINGUAL Q5M PRN PRN Reason: Angina Ondansetron HCl (Ondansetron Hcl 4 Mg/2 Ml Vial) 4 mg IVPUSH Q8H PRN PRN Reason: Nausea and Vomiting Last Admin: 11/06/24 08:52 Dose: 4 mg Documented By: LAILA Oxycodone HCl (Oxycodone Hcl Immed Release 5 Mg Tablet) 10 mg PO Q6H PRN PRN Reason: Pain, Moderate(Pain Scale 4-6) Sodium Chloride (0.9 % Sodium Chloride Flush 3 Ml Syringe) 3 ml IVFLUSH QSHIFT [facility] Last Admin: 11/07/24 08:00 Dose: 3 ml Documented By: PER Labs 10/30/24 10:35 11/04/24 12:34 Labs: Laboratory Results - last 24 hr 11/06/24 10:49 POC Glucose 105 Assessment and Plan (1) Multiple sclerosis: Status: Acute Plan d10 for 34yo F with ESRD on HD TuThSa, DM2 with polyneuropathy/retinopathy + legal blindness, PAD s/p bilateral TMA, chronic hypoxia on 3-4L O2, chronic HFrEF, multiple HD catheter line infections with MSSA/Stenotrophomonas/Pseudomonas, mood disorder, and chronic pain with opioid-seeking behavior; recently diagnosed MS presenting with R-sided weakness + MENDIOLA concerning for MS flare, also found to have hyperK MS flare - per Neuro, got 3d of high-dose IV methylprednisolone 10/29-10/31; weakness resolved - MRI with chronic demyelinating disease but no new acute lesions - PA for Cirilo submitted 11/01/24, will need Neuro clinic foll-wup hyperK due to missed HD [due to court appearance 10/28] - HD 10/29 and again 10/30, K 6.9->4.6, routine HD TuThSa [RTANE pt] HTN urgency - resolved with carvedilol + hydralazine necrotic plantar wound - excisional debridement of callus left plantar area of foot done 11/[address] Rajput; Wound Care per Gen Surg DM2 with steroid hyperglycemia - resolved; now on correction-dose lispro alone chronic hypoxia - 3-4L O2 via NC chronic HFrEF - carvedilol, HD to manage volume chronic pain syndrome - oxycodone, minimize IV Dilaudid VTE ppx - UFH dispo - home with VNA; appealing discharge In my clinical judgment, the patient requires continued inpatient hospitalization for the following reasons: appealing discharge Total time managing care of this patient today: 35 minutes. Quality Stroke Does the patient have a stroke diagnosis?: No VTE Prior VTE?: No VTE Risk Level:: Medical - moderate - high VTE Device Contraindication: Treatment Not Indicated VTE Drug Contraindication: N/A - Med Ordered
--- NOTE | 2024-11-07 11:37 | MHC.CM.PN ---
EMR reviewed and per MD rounds, pt is medically cleared for discharge. This CM met with pt, second IMM given 11/07. Pt has chosen to file an appeal regarding being discharged today. Hospitalist aware.
[2024-11-08 03:01] VITALS: BP 120/58; PULSE 79; RESP 18; TEMP 36.4; O2SAT 96
[2024-11-08 07:53] VITALS: BP 141/62; PULSE 78; RESP 18; TEMP 36.7; O2SAT 97
[2024-11-08] MEDS: 0.9 % Sodium Chloride Flush 3 ML SYRINGE IVFLUSH (07:53)
--- NOTE | 2024-11-08 11:13 | HO.PM.IMPN ---
Subjective Subjective Date of Service: 11/08/24 Interval History: awaiting HD today c/o left foot pain Review of Systems Review of Systems: Yes all other systems are reviewed and are negative Physical Exam Vital Signs: Vital Signs: Last Vital Signs Temp 98.0 F 11/08/24 07:53 Pulse 78 11/08/24 07:53 Resp 18 11/08/24 07:53 BP 141/62 H 11/08/24 07:53 Pulse Ox 97 11/08/24 07:53 O2 Del Method Nasal Cannula 11/08/24 07:53 O2 Flow Rate 1 11/08/24 07:53 Oxygen Flow Rate 3 10/29/24 09:35 BMI result Body Mass Index 33.9 Gen: in no acute distress HEENT: sclera anicteric, moist mucus membranes Neck: supple Lungs: clear to auscultation bilaterally Heart: regular rate and rhythm, no murmurs Abd: soft, non-tender, non-distended Ext: no edema, bilateral TMAs Skin: warm/well-perfused, 3 cm plantar ulcer with granulation tissues Neuro: alert and oriented x3, blind, no focal weakness Psych: appropriate affect Objective Data Active Medications Acetaminophen (Acetaminophen 325 Mg Tablet) 650 mg PO Q6H PRN PRN Reason: Pain, Mild 1-3,fever,headache Albuterol Sulfate (Albuterol Sulfate 90 Mcg 8 Gm Inhaler) 2 puff INHALE Q6H PRN PRN Reason: Wheezing Calcium Carbonate (Calcium Carbonate 750 Mg Tab.Chew) 750 mg PO TIDWM PRN PRN Reason: Acid Reflux Calcium Carbonate (Calcium Carbonate 750 Mg Tab.Chew) 750 mg PO Q4H PRN PRN Reason: Heartburn Carvedilol (Carvedilol 12.5 Mg Tablet) 12.5 mg PO BID [facility]; Protocol Last Admin: 11/08/24 07:50 Dose: 12.5 mg Documented By: KERRIE Dextrose (Dextrose 50 % 25 Gm/50 Ml Syringe) 25 gm IVPUSH Q15M PRN; Protocol PRN Reason: per Hypoglycemia Standing Ord. Last Admin: 11/04/24 11:04 Dose: 25 gm Documented By: ROSIE Diphenhydramine HCl (Diphenhydramine Hcl 50 Mg/Ml Vial) 25 mg IVPUSH Q6H PRN PRN Reason: Itching Last Admin: 11/08/24 06:42 Dose: 25 mg Documented By: NURIS Fidaxomicin (Fidaxomicin 200 Mg Tablet) 200 mg PO Q12H [facility] Last Admin: 11/08/24 01:28 Dose: 200 mg Documented By: DUANE Glucose (Glucose Gel 15 Gm Gel..Gram.) 15 gm PO Q15M PRN; Protocol PRN Reason: per Hypoglycemia Standing Ord. Heparin Sodium (Porcine) (Heparin Sodium,Porcine 5,000 Unit/Ml Vial) 5,000 unit SUBCUT Q8H [facility] Last Admin: 11/08/24 06:05 Dose: Not Given Documented By: NURIS Non-Admin Reason: Patient Refused Hydralazine HCl (Hydralazine Hcl 50 Mg Tablet) 50 mg PO TID [facility]; Protocol Last Admin: 11/08/24 07:50 Dose: 50 mg Documented By: KERRIE Hydralazine HCl (Hydralazine Hcl 20 Mg/Ml Vial) 10 mg IVPUSH Q6H PRN; Protocol PRN Reason: SBP>180 Last Admin: 11/04/24 15:05 Dose: 10 mg Documented By: ROSIE Hydromorphone HCl (Hydromorphone Hcl 0.5 Mg/0.5 Ml Syringe) 0.25 mg IVPUSH Q6H PRN; Protocol PRN Reason: Pain, Severe (Pain Scale 7-10) Last Admin: 11/08/24 06:41 Dose: 0.25 mg Documented By: NURIS Insulin Human Lispro (Insulin Lispro 100 Unit/Ml 3 Ml Vial) 0 unit SUBCUT QIDACHS [facility]; Protocol Last Admin: 11/08/24 07:42 Dose: Not Given Documented By: KERRIE Non-Admin Reason: Patient Refused Lidocaine (Lidocaine 4 % Patch Adh..Patch) 1 patch TRANSDERMA DAILY PRN PRN Reason: Pain Magnesium Hydroxide (Milk Of Magnesia 30 Ml Oral.Susp) 30 ml PO DAILY PRN PRN Reason: Constipation Melatonin (Melatonin 3 Mg Tablet) 6 mg PO BEDTIME PRN PRN Reason: Insomnia Naloxone HCl (Naloxone Hcl 0.4 Mg/Ml Vial) 0.04 mg IVPUSH Q5M PRN PRN Reason: Excessive sedation or RR < 8 Nitroglycerin (Nitroglycerin 0.4 Mg Tab.Subl) 0.4 mg SUBLINGUAL Q5M PRN PRN Reason: Angina Ondansetron HCl (Ondansetron Hcl 4 Mg/2 Ml Vial) 4 mg IVPUSH Q8H PRN PRN Reason: Nausea and Vomiting Last Admin: 11/06/24 08:52 Dose: 4 mg Documented By: LAILA Oxycodone HCl (Oxycodone Hcl Immed Release 5 Mg Tablet) 10 mg PO Q6H PRN PRN Reason: Pain, Moderate(Pain Scale 4-6) Sodium Chloride (0.9 % Sodium Chloride Flush 3 Ml Syringe) 3 ml IVFLUSH QSHIFT [facility] Last Admin: 11/08/24 07:53 Dose: 3 ml Documented By: KERRIE Labs 10/30/24 10:35 11/04/24 12:34 Assessment and Plan (1) Multiple sclerosis: Status: Acute Plan d11 for 34yo F with ESRD on HD TuThSa, DM2 with polyneuropathy/retinopathy + legal blindness, PAD s/p bilateral TMA, chronic hypoxia on 3-4L O2, chronic HFrEF, multiple HD catheter line infections with MSSA/Stenotrophomonas/Pseudomonas, mood disorder, and chronic pain with opioid-seeking behavior; recently diagnosed MS presenting with R-sided weakness + MENDIOLA concerning for MS flare, also found to have hyperK MS flare - per Neuro, got 3d of high-dose IV methylprednisolone 10/29-10/31; weakness resolved - MRI with chronic demyelinating disease but no new acute lesions - PA mariana Lucíanhung submitted 11/01/24, will need Neuro clinic follow-up hyperK due to missed HD [due to court appearance 10/28] - HD 10/29 and again 10/30, K 6.9->4.6, routine HD TuThSa [RTANE pt] HTN urgency - resolved with carvedilol + hydralazine necrotic plantar wound - excisional debridement of callus left plantar area of foot done 11/[address] Rajput; Wound Care per Gen Surg: wet->dry dressings daily DM2 with steroid hyperglycemia - resolved; now on correction-dose lispro alone chronic hypoxia - 3-4L O2 via NC chronic HFrEF - carvedilol, HD to manage volume chronic pain syndrome - oxycodone, minimize IV Dilaudid VTE ppx - UFH dispo - home with VNA; discharged 11/07; pt appealing discharge In my clinical judgment, the patient requires continued inpatient hospitalization for the following reasons: appealing discharge Total time managing care of this patient today: 35 minutes. Quality Stroke Does the patient have a stroke diagnosis?: No VTE Prior VTE?: No VTE Risk Level:: Medical - moderate - high VTE Device Contraindication: Treatment Not Indicated VTE Drug Contraindication: N/A - Med Ordered
--- NOTE | 2024-11-08 15:18 | P.F2F_ITS ---
Service Date Service Date: 11/08/24 Encounter Date of encounter: 11/08/24 Reasons for Services Signs and symptoms assessed: daily dressings changes. wet to dry gauze recommend tight glucose control Reason for custodial: wound care, monitoring of unstable blood sugar, medication management, medication treatment and teach disease management Reason for physical therapy: home safety and mobility, therapeutic exercises, gait/transfer training, assess need for DME, ADL training and energy conservation MD Overseeing Care: Genevieve Casillas Homebound: Leaving the home is medically contraindicated at this time without the asist of a device and/or another person due th the listed conditions above and below. Reason homebound: unsteady gait / fall risk and immunosuppression / infection risk Certification: Based on the above findings, I certify that this patient is confined to the home and needs intermittent custodial care, physical therapy and/or speech therapy, or continues to need occupational therapy. The patient is under my care, and I have initiated the establishment of the plan of care. The patient will be followed by a physician who will periodically review the plan of care. Time Spent With Patient Time: Total time managing care of this patient today ____ minutes.
--- NOTE | 2024-11-08 15:32 | MHC.CM.PN ---
pt dcd today at 4:30 by amb to home anjali tadeo notified pt lost medicare appeal
[2024-11-08 16:00] VITALS: BP 146/68; PULSE 88; RESP 19; TEMP 36.1; O2SAT 95
== END 2024-11-08 16:35 | disposition home health service (06) | DRG 40 ==
LOC: HO.ED 10:32 → HO.EDOVER 12:07 → HO.IMC 14:32 → HO.S3 11-08 01:33
PROVIDERS: Hospitalist; Internal Medicine; Internal Medicine Nephrology; Nurse Practitioner; Nurse Practitioner Acute Care; Surgery; Admitting Provider Student in an Organized Health Care Education/Training Program; Emergency Provider Emergency Medicine Emergency Medical Services; PCP Student in an Organized Health Care Education/Training Program; Visit Provider Family Medicine
PROC: 0JBR0ZZ Excision of Left Foot Subcutaneous Tissue and Fascia, Open Approach (ICD-10-PCS; principal; 2024-11-05 15:00)
DX: G35 Multiple sclerosis (principal); N18.6 End stage renal disease; E11.52 Type 2 diabetes mellitus with diabetic peripheral angiopathy with gangrene; I13.2 Hypertensive heart and chronic kidney disease with heart failure and with stage 5 chronic kidney disease, or end stage renal disease; I50.22 Chronic systolic (congestive) heart failure; J96.11 Chronic respiratory failure with hypoxia; L97.429 Non-pressure chronic ulcer of left heel and midfoot with unspecified severity; I70.262 Atherosclerosis of native arteries of extremities with gangrene, left leg; A04.72 Enterocolitis due to Clostridium difficile, not specified as recurrent; G81.91 Hemiplegia, unspecified affecting right dominant side; E87.5 Hyperkalemia; E11.22 Type 2 diabetes mellitus with diabetic chronic kidney disease; D63.1 Anemia in chronic kidney disease; N25.0 Renal osteodystrophy; Z99.2 Dependence on renal dialysis; E11.65 Type 2 diabetes mellitus with hyperglycemia; I16.0 Hypertensive urgency; H54.8 Legal blindness, as defined in USA; E11.42 Type 2 diabetes mellitus with diabetic polyneuropathy; G89.4 Chronic pain syndrome; Z76.5 Malingerer [conscious simulation]; Z99.81 Dependence on supplemental oxygen; Z91.158 Patient's noncompliance with renal dialysis for other reason; Z91.148 Patient's other noncompliance with medication regimen for other reason; Z79.899 Other long term (current) drug therapy
CPT/HCPCS: 36415; 70450; 70551; 80048; 80051; 80053; 82947; 84132; 85025; 85027; 87324; 87493; 88304; 90999; 93005; 99285; J0360; J1171; J1200; J2003; J2405; J2704; J2765; J2795; J2919; J7120

== ENCOUNTER → 2024-10-29 09:40 | Outpatient (BNV) | payer OTHER, SELFPAY | PROVIDERS: Admitting Provider Student in an Organized Health Care Education/Training Program; Emergency Provider Emergency Medicine Emergency Medical Services; Visit Provider Internal Medicine Cardiovascular Disease | DX: I45.10 Unspecified right bundle-branch block (principal) | CPT/HCPCS: 93010 ==

== ENCOUNTER → 2024-10-29 11:28 | Outpatient (BNV) | payer OTHER, SELFPAY | PROVIDERS: Admitting Provider Student in an Organized Health Care Education/Training Program; Emergency Provider Emergency Medicine Emergency Medical Services; Visit Provider Radiology Diagnostic Radiology | DX: G83.31 Monoplegia, unspecified affecting right dominant side (principal) | CPT/HCPCS: 70450; 70551 ==

== ENCOUNTER → 2024-10-29 12:06 | Outpatient (BNV) | payer OTHER, SELFPAY | PROVIDERS: Admitting Provider Student in an Organized Health Care Education/Training Program; Emergency Provider Emergency Medicine Emergency Medical Services; PCP Student in an Organized Health Care Education/Training Program; Visit Provider Internal Medicine | DX: N19 Unspecified kidney failure (principal) | CPT/HCPCS: 99222 ==

== ENCOUNTER → 2024-10-29 12:06 | Outpatient (BNV) | payer OTHER, SELFPAY | PROVIDERS: Admitting Provider Student in an Organized Health Care Education/Training Program; Emergency Provider Emergency Medicine Emergency Medical Services; PCP Student in an Organized Health Care Education/Training Program; Visit Provider Psychiatry & Neurology Neurology | DX: G35 Multiple sclerosis (principal) | CPT/HCPCS: 99222 ==

== ENCOUNTER → 2024-10-29 12:06 | Outpatient (BNV) | payer OTHER, SELFPAY | PROVIDERS: Admitting Provider Student in an Organized Health Care Education/Training Program; Emergency Provider Emergency Medicine Emergency Medical Services; Visit Provider Student in an Organized Health Care Education/Training Program | DX: G35 Multiple sclerosis (principal) | CPT/HCPCS: 99223; 99232; 99499 ==

== ENCOUNTER → 2024-10-29 12:06 | Outpatient (BNV) | payer OTHER, SELFPAY | PROVIDERS: Admitting Provider Student in an Organized Health Care Education/Training Program; Emergency Provider Emergency Medicine Emergency Medical Services; PCP Student in an Organized Health Care Education/Training Program | DX: L97.529 Non-pressure chronic ulcer of other part of left foot with unspecified severity (principal) | CPT/HCPCS: 99222 ==

== ENCOUNTER 2024-11-19 18:08 | Outpatient (REF) | payer OTHER, SELFPAY ==
--- OUTSIDE RECORDS SUMMARY | 2024-11-19 15:15 | XMS_ITS | Encounter Summary ---
Author Organization [employer] Address [address] [place] [address] Care Team Providers Care Oil Well Engineer Name Role Phone Genevieve Gtz MD Primary Care Pro vider Reason for Visit * Reason Comments MANAGER REGULATORY Encounter Details Date Type Department Care Team (Latest Contact Info) Description 11/19/2024 3:15 PM EDT Clinical Support [facility] MED & PEDS [address] [place] [address] Khushi Frederick RN [address] [place], [place] [phone] Long-term current use of opiate analgesic (Primary [...] as of this encounter Progress Notes * Khushi Frederick RN - 11/19/2024 3:15 PM EDT SUBJECTIVE: Shereen Taylor is a 34 y.o. year old female who presents for MANAGER REGULATORY Preferred language for medical information: Tamazight Interpreted needed: No Shereen Taylor does report adherence to Oxycodone 5 mg, take 1 tablet every 8 hours PRN, last refilled 11/15/24. The patient last took Oxycodone on: 11/19/24 Medication is: 100% % effective at alleviating pain. OBJECTIVE: INVESTMENT ASSOCIATE checked: 11/19/2024 Pill count completed for Oxycodone , count today is 8 , anticipated count should be 7, this is as expected. Last PCP visit: 01/02/24 BPI completed on: 04/30/24 , pain severity score: 5, activity interference score: 9 Controlled substance agreement signed: Controlled Substance Agreement 04/30/2024 MANAGER REGULATORY Tier: 2 Current Medications[1] Smoking status: Denies ETOH use: Denies Illicit substances: Denies Marijuana use: No , No results found for: POCTHC , POCCOCAINEUR , POCOPIATEUR , DOAUR , POCAMPHETAMI , POCBENZODIUR , POCBARBSCRN , POCMETHADOUR , POCBUPSCRN , POCTCAUR , POCMDMAUR , POCOXYCODONE , POCPHENCYCUR , PROPOXUR , FENTANYLURIN ASSESSMENT: MANAGER REGULATORY Agreement Initiation: Opioid dependence related to chronic pain. PLAN: Information on pain group given: Previously discussed Information on acupuncture given: Previously discussed Narcan education provided: Previously discussed Narcan prescription: active Shereen Taylor will continue taking medication as prescribed and follow up at the next MANAGER REGULATORY visitor sooner if needed. Shereen Taylor has verbalized understanding of care plan. Future Appointments Date Time Provider Department Center 11/26/2024 10:15 AM Genevieve Casillas MD MEDICINE [facility] Khushi Frederick RN [1] Current Outpatient Medications: [...] Description 11/26/2024 10:15 AM EDT Office Visit [facility] MEDICINE [address] [place] [address] Genevieve Gtz MD [address] [place] [address] 02/11/2025 2:45 PM EST Clinical Support [facility] MED & PEDS [address] [place] [address] Khushi Frederick, RN [address] [place] [address] Scheduled Orders Name Type Priority Associated Diagnoses [...] documented as of this encounter Care Teams Oil Well Engineer Relationship Specialty Start Date End Date Genevieve Gtz MD [address] [place] [address] PCP - General Internal Medicine 10/12/22 documented as of this encounter
--- OUTSIDE RECORDS SUMMARY | 2024-11-19 18:13 | XMS_ITS | Encounter Summary ---
Author Organization [employer] Address [address] [facility] [address] [place] [address] Care Team Providers Care Professor Of Biostatistics Name Role Phone Genevieve Gtz MD Primary Care Pro vider Reason for Visit * Reason Onset Date Comments Med Refill 12/19/2023 Encounter Details Date Type Department Care Team ([facility] Contact Info) Description 12/19/2023 Telephone [facility] MEDICINE [address] [place] [address] Genevieve Gtz MD [address] [place], [place] [phone] Med Refill Social History Tobacco Use Types [...] immediate release tablet To be sent to: [id number] [place] [address] - [address] [place] [address] documented in this encounter Plan of Treatment Upcoming Encounters Date Type Department Care Team (Late st Contact Info) Description 11/26/2024 10:15 AM EDT Office Visit [facility] MEDICINE [address] [place] [address] Genevieve Gtz MD [address] [place] [address] 02/11/2025 2:45 PM EST Clinical Support [facility] MED & PEDS [address] [place] [address] Paola Thurston, KIRIT [address] [place] [address] documented as of this encounter Goals Goal Patient Goal Type Associated Problems Recent Progress Patient-Stated? Author Blood Pressure < 140/90 Blood Pressure 129/75(2024 9:08 AM EST) No Jiame Chilel Hemoglobin A1c < 8 Result Component 5.7(01/10/202 5 9:45 AM EST) No Jaime Chilel documented as of this encounter Visit Diagnoses Not on filedocumented in this encounter Additional Health Concerns Assessment Noted Time PHQ-9 Depression Total Score: 0 10/23/19 24 2:23 PM EDT documented as of this encounter Care Teams Professor Of Biostatistics Relationship Specialty Start Date End Date Genevieve Gtz MD [address] [place] [address] PCP - General Internal Medicine 10/12/22 documented as of this encounter
--- OUTSIDE RECORDS SUMMARY | 2024-11-19 18:13 | XMS_ITS | Clinical Summary ---
Author Organization [facility] Address [address] [facility] [place] [phone] Phone Care Team Providers Care Incident Commander Name Role Phone Genevieve Gtz MD Primary Care Pro vider Encounters Date Type Department Care Team Description 11/16/2024 Home Care Visit [facility] [address] [place] [phone] Becca Saenz, KIRIT NON ADMIT HOME HEALTH VISIT 11/14/2024 Home Care Visit [facility] [address] [place] [phone] Angela Foster RN CASE COMMUNICATION 11/10/2024 Home Care Visit [facility] [address] [place] [phone] Angela Foster, RN TELEPHONE ENCOUNTER 11/09/2024 Home Care Visit [facility] [address] [place] [phone] Becca Saenz RN CASE COMMUNICATION 11/04/2024 Orders Only [facility] [address] [place] [phone] Homehealth, Interface ProviderMD from Last 3 Months Social History Tobacco Use Types Packs/Day Years [...] on file Medical Devices Not on file Insurance [place] [id number] CARE MEDICARE REPLACEMENT CARE MEDICARE REPLACEMENT CARE MEDICARE REPLACEMENT CARE MEDICARE REPLACEMENT CARE MEDICARE REPLACEMENT Care Teams Incident Commander Relationship Specialty Start Date End Date Genevieve Gtz MD [address] [place] [phone] PCP - General Internal Medicine 11/06/24 Additional Source Comments The information contained in this document represents components of the legal health record. It is not the complete legal health record.[facility]
--- OUTSIDE RECORDS SUMMARY | 2024-11-19 18:13 | XMS_ITS | Clinical Summary ---
Author Organization [facility] Address [address] [place] [address] Care Team Providers Care Polyethylene Bag Machine Operator Name Role Phone Unavailable Primary Care Provider [...] Pap Smear (Ages 21-65) 2009 Influenza Vaccine 09/26/2024 09/30/2016, 12/06/2011 COVID-19 Vaccine ( season) 2024, 06/18/2020 HIV Screening Completed 01/09/2022 Hepatitis C Virus Screening Completed 01/09/2022 HPV Vaccines (No Doses Required) Completed Procedures Procedure Name Priority Date/Time Associated Diagnosis [...] 0.79 S/CO ratio 01/10/2022 10:39 AM EST [facility] Hepatitis C Antibody Interpretation Nonreactive Nonreactive 01/10/2022 10:39 AM EST [facility] Blood specimen (specimen) (Plasma/Serum) 01/09/2022 8:34 AM EST 01/09/2022 9:21 AM EST us Jaziel B Post MD LAB BLOOD ORDERABLES Final Resu lt H[facility] LAB [facility] [address] [place] [address] * HIV 1/2 Ag/Ab CMIA Reflex to Confirmation (01/09/2022 8:34 AM EST) HIV 1/2 Ag/Ab CMIA Nonreactive Nonreactive 01/10/2022 10:39 AM EST [facility] Comment: Results show no evidence of infection by HIV 1/2. If clinically indicated, repeat CMIA or test by nucleic acid amplification. HIV 1/2 Antigen/Antibody CMIA reflex to confirmation AND HIV-1 RNA viral load recommended in patients who are taking or have recently taken PrEP. Blood specimen (specimen) Serum specimen / Unknown 01/09/2022 8:34 AM EST 01/09/2022 9:21 AM EST us Jaziel Burgess Post MD LAB BLOOD ORDERABLES Final Resu lt HOSPITAL LAB [facility] [address] [place] [address] from Last 3 Months or Most Recently Relevant to Health Maintenance Insurance [facility] Member Subscriber Plan / Payer ( fective 2022-Present) Name:Shereen Taylor Relation to Subscriber:Self Name:Shereen Taylor Payer ID:Not on file Group ID:Not on file Type:Not on file Address: [address] [id number] MISC MGD MEDICARE OUT OF NETWORK Advance Directives * Full Code (Latest Code Status on File) Date Activated Date Inactivated Comments 01/06/2022 5:00 AM Question Answer Comments Decision Thoroughly Discussed with: Unable to Ilda musa
--- OUTSIDE RECORDS SUMMARY | 2024-11-19 18:13 | XMS_ITS | Encounter Summary ---
Author Organization [employer] Address [address] [facility] [address] [place] [address] Care Team Providers Care Circle Cutting Saw Operator Name Role Phone Genevieve Gtz MD Primary Care Pro vider Reason for Visit * Reason Onset Date Comments Med Refill 12/05/2023 Encounter Details Date Type Department Care Team ([facility] Contact Info) Description 12/05/2023 Telephone [facility] [address] [place] [address] Genevieve Gtz MD [address] [place], [place] [phone] Med Refill Social History Tobacco Use Types [...] release tablet To be sent to: [facility] [place] [address] - [address] [place] [address] documented in this encounter Plan of Treatment Upcoming Encounters Date Type Department Care Team (Late st Contact Info) Description 11/26/2024 10:15 AM EDT Office Visit [facility] [address] [place] [address] Genevieve Gtz MD [address] [place] [address] 02/11/2025 2:45 PM EST Clinical Support [facility] [address] [place] [address] Paola Thurston, KIRIT [address] [place] [address] documented as of this encounter Goals Goal Patient Goal Type Associated Problems Recent Progress Patient-Stated? Author Blood Pressure < 140/90 Blood Pressure 129/75(2024 9:08 AM EST) No Jaime Chilel Hemoglobin A1c < 8 Result Component 5.7(01/10/202 5 9:45 AM EST) No Jamie Chilel documented as of this encounter Visit Diagnoses Not on filedocumented in this encounter Additional Health Concerns Assessment Noted Time PHQ-9 Depression Total Score: 0 10/23/19 24 2:23 PM EDT documented as of this encounter Care Teams Circle Cutting Saw Operator Relationship Specialty Start Date End Date Genevieve Gtz MD [address] [place] [phone] PCP - General Internal Medicine 10/12/22 documented as of this encounter
--- OUTSIDE RECORDS SUMMARY | 2024-11-19 18:13 | XMS_ITS | Encounter Summary ---
Author Organization [employer] Address [address] [facility] [address] [place] [address] Care Team Providers Care Asphalt Worker Name Role Phone Genevieve Gtz MD Primary Care Pro vider Reason for Visit * Reason Onset Date Comments Med Refill 01/08/2023 Encounter Details Date Type Department Care Team ([facility] Contact Info) Description 01/08/2023 Telephone [facility] [address] [place], [place] [phone] Genevieve Gtz MD [address] [place], [place] [phone] Med Refill Social History Tobacco Use Types [...] Description 11/26/2024 10:15 AM EDT Office Visit [facility] [address] [place] [address] Genevieve Gtz MD [address] [place] [address] 02/11/2025 2:45 PM EST Clinical Support [facility] [address] [place] [address] Paola Thurston, RN [address] [place] [address] documented as of this encounter Visit Diagnoses Not on filedocumented in this encounter Additional Health Concerns Assessment Noted Time PHQ-9 Depression Total Score: 0 10/13/19 2:37 PM EDT documented as of this encounter Care Teams Asphalt Worker Relationship Specialty Start Date End Date Genevieve Gtz MD [address] [place] [address] PCP - General Internal Medicine 10/12/22 documented as of this encounter
--- OUTSIDE RECORDS SUMMARY | 2024-11-19 18:13 | XMS_ITS | Clinical Summary ---
Author Organization [employer] Address [address] [facility] 7t [place] [address] Care Team Providers Care Cardiograph Operator Name Role Phone Genevieve Gtz MD [...] eorder (will not trigger notification to Pharmacy)) oxyCODONE (Roxicodone) 5 MG immediate release tabletIndicatio ns:Chronic ulcer of 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 (CMS/HCC),Chron ic wound Take 1 tablet (5 mg) by mouth every 8 (eight) hours if needed for severe pain for up to 7 days. 21 tablet 10/24/19 25 2024 oxyCODONE (Roxicodone) 5 MG immediate release tabletIndicatio ns:Chronic ulcer of left foot due to diabetes mellitus (CMS/HCC) Take 1 tablet (5 mg) by mouth every 8 (eight) hours if needed for severe pain for up to 7 days. 21 tablet 11/12/19 25 2024 Active Problems Problem Noted Date Diagnosed Date [...] Encounters Date Type Department Care Team Description 11/19/2024 3:15 PM EDT Clinical Support [facility] MED & PEDS [address] [place] [address] Paola Thurston RN Long-term current use of opiate analgesic (Primary Dx) 11/19/2024 Telephone [facility] MED & PEDS [address] [place] [address] Paola Thurston RN 11/19/2024 Travel 11/11/2024 Telephone [facility] [address] [place] [phone] Genevieve Gtz MD Medication Question 11/10/2024 Patient Outreach [facility] MED & PEDS [address] [place] [address] Genevieve Gtz MD Pre-visit Planning (HDF scheduled. ) 11/10/2024 Telephone [facility] [address] [place] [address] Genevieve Gtz MD telephone call 11/06/[address] [address] Genevieve Gtz MD FYI 10/24/2024 Travel 10/24/2024 Telephone [facility] MED & PEDS [address] [place] [address] Paola Thurston RN 10/23/2024 Refill [facility] MED & PEDS [address] [place] [address] Paola Thurston RN Chronic ulcer of 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 (CMS/HCC); Chronic wound 10/23/2024 Telephone [facility] [address] [place] [address] Genevieve Gtz MD Med Refill 09/25/[address] [address] Genevieve Gtz MD chart prep 09/17/2024 Orders Only [facility] [address] [place] [address] Genevieve Gtz MD Multiple sclerosis (CMS/HCC) (Primary Dx) 09/15/2024 Telephone [facility] MED & PEDS [address] [place] [address] Paola Thurston RN HOUSE OFFICER 09/15/2024 Refill [facility] [address] [place] [address] Genevieve Gtz MD Chronic ulcer of 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 (CMS/HCC); Chronic wound 09/15/[address] [address] Genevieve Gtz MD Durable Medical Equipment 09/05/2024 Orders Only [facility] External Provider, [facility] 08/27/2024 Results Follow-Up [address] [address] Genevieev Gtz MD Glucose, Whole Blood, Glucose, Whole Blood, Glucose, Whole Blood 08/27/2024 Orders Only GENERIC EXTERNAL DATA DEPARTMENT Provider, Generic External Data 08/25/[address] [address] Genevieve Gtz MD Durable Medical Equipment; Med Refill 08/25/[address] [address] Genevieve Gtz MD Hospital Follow-up 08/22/2024 Refill [facility] MED & PEDS [address] [place] [address] Paola Thurston RN Chronic ulcer of 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 ([facility]); Chronic wound 08/22/[address] [address] Genevieve Gtz MD Appointment Request 08/22/[address] [address] Genevieve Gtz MD Med Refill from Last 3 Months Immunizations Immunization Administration [...] Description 11/26/2024 10:15 AM EDT Office Visit [facility] [address] [place], [place] [phone] Genevieve Gtz MD [address] [place], [place] [phone] 02/11/2025 2:45 PM EST Clinical Support [facility] PEDS [address] [place], [place] [phone] Paola Thurston, RN [address] [place], [place] [phone] Health Maintenance Due Date Last Done Comments [...] 06/27/2022 06/27/2012, 06/24/2012, 03/13/2002, Additional history exists Diabetes: Hemoglobin A1C 06/05/2024 025, 10/23/2023, 06/02/2022, Additional history exists SDOH Screening 09/19/2024 09/20/2023 Depression Screening 10/22/2024 10/23/2023, 10/23/19 24 COVID-19 Vaccine ( - season) 2024 07/16/2020, 06/18/2020 Influenza Vaccine (#1) 2024 7, 09/30/2016, 12/06/2011, [...] WO CONTRAST Routine 08/20/2024 12:15 PM EDT HEPATITIS C AB W/REFL TO HCV [...] PM EDT Narrative 09/08/2024 3:13 PM EDT [address] [address] Fluoroscopy Report Signed Patient: Shereen Taylor MR#: [id number] : 1990 Acct:[id number] Age/Sex: 34 / F ADM Date: 09/05/24 Loc: [facility] 483-[address]: Tawny Taylor NP Ordering Physician: Angela Ulloa Date of Service: 09/08/24 Procedure(s): FL guided lumbar puncture LP Accession Number(s): [id number] cc: Angela Ulloa; Genevieve Gtz MD EXAMINATION: [...] 09/08/24 1510 DD/ 1410 TD/TT: 09/08/24 1455 Stockholder: Procedure Note Donotuseinterpreter, Image - 09/08/[address] [address] Fluoroscopy Report Signed Patient: Danna Taylor#: [id number] : 1990Acct:[id number] Age/Sex: 34 / FADM Date: 09/05/24 Loc: [facility] 483-[address]: Tawny Taylor PROPERTY CLERK Ordering Physician: Angela Ulloa Date of Service: 09/08/24 Procedure(s): FL guided lumbar puncture LP Accession Number(s): [id number] cc: Angela Ulloa; Genevieve Gtz MD EXAMINATION: [...] 09/08/24 1510 DD/ 1410 TD/TT: 09/08/24 1455 Stockholder: [facility] External Provider IMG FLU OROSCOPY PROCEDURES Final Result * CT Chest w/o Contrast (08/27/2024 10:10 AM EDT) Anatomical Region Laterality Modality Body, Chest Computed Tomogra phy 08/27/2024 10:1 0 AM EDT Narrative 08/27/2024 10:11 AM EDT [address] [address] [address] Scan Report Signed Patient: Shereen Taylor MR#: [id number] : 1990 Acct:[id number] Age/Sex: 34 / F ADM Date: 08/27/24 Loc: HO.ED Attending Dr: Ordering Physician: Sylvia Saxena MD Date of Service: 08/27/24 Procedure(s): CT chest wo IV con Accession Number(s): [id number] cc: Sylvia Saxena MD; Genevieve Gtz MD Report Number: [id number]: Total DLP = 431.00 mGy-cm CLINICAL HISTORY: [...] 08/27/24 1011 DD/ 1010 TD/TT: 08/27/24 1010 Stockholder: Procedure Note Donotuseinterpreter, Image - 08/27/[address] [address] [address] Scan Report Signed Patient: Christian TaylorR#: [id number] : 1990Acct:[id number] Age/Sex: 34 / FADM Date: 08/27/24 Loc: .ED Attending Dr: Ordering Physician: Sylvia Saxena MD Date of Service: 08/27/24 Procedure(s): CT chest wo IV con Accession Number(s): [id number] cc: Sylvia Saxena MD; Genevieve Gtz MD Report Number: [id number]: Total DLP = 431.00 mGy-cm CLINICAL HISTORY: [...] 08/27/24 1011 DD/ 1010 TD/TT: 08/27/24 1010 Stockholder: [facility] External Provider IMG CT PROCEDURES Final Result * CT Abdomen Pelvis w/o Contrast (08/27/2024 10:05 AM EDT) Anatomical Region Laterality Modality Body, Pelvis, Abdomen Computed T omography 08/27/2024 10:0 5 AM EDT Narrative 08/27/2024 10:06 AM EDT [place] [address] [address] Scan Report Signed Patient: Shereen Taylor MR#: [id number] : 1990 Acct:[id number] Age/Sex: 34 / F ADM Date: 08/27/24 Loc: HO.ED Attending Dr: Ordering Physician: Sylvia Saxena MD Date of Service: 08/27/24 Procedure(s): CT abdomen pelvis wo IV con Accession Number(s): [id number] cc: Sylvia Saxena MD; Genevieve Gtz MD Report Number: [id number]: Total DLP = 932.00 mGy-cm CLINICAL HISTORY: [...] 08/27/24 1006 DD/ 1005 TD/TT: 08/27/24 1005 Stockholder: Procedure Note Donotuseinterpreter, Image - 08/27/[address] [place] [address] [address] Scan Report Signed Patient: Danna Taylor#: [id number] : 1990Acct:[id number] Age/Sex: 34 / FADM Date: 08/27/24 Loc: .ED Attending Dr: Ordering Physician: Sylvia Saxena MD Date of Service: 08/27/24 Procedure(s): CT abdomen pelvis wo IV con Accession Number(s): [id number] cc: Sylvia Saxena MD; Genevieve Gtz MD Report Number: [id number]: Total DLP = 932.00 mGy-cm CLINICAL HISTORY: [...] 08/27/24 1006 DD/ 1005 TD/TT: 08/27/24 1005 Stockholder: [facility] External Provider IMG CT PROCEDURES Final Result * CT Head w/o Contrast (08/27/2024 9:58 AM EDT) Anatomical Region Laterality Modality Head, Neck Computed Tomogra phy 08/27/2024 9:58 AM EDT Narrative 08/27/2024 9:59 AM EDT [place] [address] [address] Scan Report Signed Patient: Shereen Taylor MR#: [id number] : 1990 Acct:[id number] Age/Sex: 34 / F ADM Date: 08/27/24 Loc: HO.ED Attending Dr: Ordering Physician: Sylvia Saxena MD Date of Service: 08/27/24 Procedure(s): CT head/brain wo IV con Accession Number(s): [id number] cc: Sylvia Saxena MD; Genevieve Gtz MD Report Number: [id number]: Total DLP = 700.00 mGy-cm CLINICAL HISTORY: [...] in OV> 08/27/24958 DD/ 7 TD/TT: 08/27/24957 Stockholder: Procedure Note Donotsenaitinterpreter, Image - 08/27/[address] [place] [address] [address] Scan Report Signed Patient: Danna Taylor#: [id number] : 1990Acct:[id number] Age/Sex: 34 / FADM Date: 08/27/24 Loc: HO.ED Attending Dr: Ordering Physician: Sylvia Saxena MD Date of Service: 08/27/24 Procedure(s): CT head/brain wo IV con Accession Number(s): [id number] cc: Sylvia Saxena MD; Genevieve Gtz MD Report Number: [id number]: Total DLP = 700.00 mGy-cm CLINICAL HISTORY: [...] in OV> 08/27/24958 DD/ 7 TD/TT: 08/27/24957 Stockholder: [facility] External Provider IMG CT PROCEDURES Final Result * CT Cervical Spine w/o Contrast (08/27/2024 9:55 AM EDT) Anatomical Region Laterality Modality Spine, C-spine Computed Tomogra phy 08/27/2024 9:55 AM EDT Narrative 08/27/2024 9:57 AM EDT [address] [address] [address] Scan Report Signed Patient: Shereen Taylor MR#: [id number] : 1990 Acct:[id number] Age/Sex: 34 / F ADM Date: 08/27/24 Loc: HO.ED Attending Dr: Ordering Physician: Sylvia Saxena MD Date of Service: 08/27/24 Procedure(s): CT cervical spine wo IV con Accession Number(s): [id number] cc: Sylvia Saxena MD; Genevieve Gtz MD Report Number: [id number]: Total DLP = 376.00 mGy-cm CLINICAL HISTORY: [...] signed by Umang Hernandez MD in OV> 08/27/2456 DD/ 4 TD/TT: 08/27/24954 Stockholder: Procedure Note Donotuseinterpreter, Image - 08/27/[address] [address] [address] Scan Report Signed Patient: Christian TaylorR#: [id number] : 1990Acct:[id number] Age/Sex: 34 / FADM Date: 08/27/24 Loc: HO.ED Attending Dr: Ordering Physician: Sylvia Saxena MD Date of Service: 08/27/24 Procedure(s): CT cervical spine wo IV con Accession Number(s): [id number] cc: Sylvia Saxena MD; Genevieve Gtz MD Report Number: [id number]: Total DLP = 376.00 mGy-cm CLINICAL HISTORY: [...] in OV> 08/27/24955 DD/ 4 TD/TT: 08/27/24954 Stockholder: [facility] External Provider IMG CT PROCEDURES Final Result * Glucose, Whole Blood (08/27/2024 9:10 AM EDT) Only the most recent of3 resultswithin the time period is included. Glucose, Whole Blood 101 60 - 115 mg/dL [facility] Comment:METER #: [id number] 08/27/2024 9:10 AM EDT 08/27/2024 9:13 AM EDT Generic External Data Provider LAB BLOOD ORDERAB LES Final Result [facility] [address] [place] [address] [phone] * MRA Head w/ Contrast (08/21/2024 6:42 PM EDT) Anatomical Region Laterality Modality Head, Neck Magnetic Resonan ce 08/21/2024 6:42 PM EDT Narrative 08/21/2024 6:45 PM EDT [address] [address] Magnetic Resonance Report Signed Patient: Shereen Taylor MR#: [id number] : 1990 Acct:[id number] Age/Sex: 34 / F ADM Date: 08/18/24 Loc: [facility] 459-[address]: Angela SIGALA Ordering Physician: Angela Ulloa Date of Service: 08/21/24 Procedure(s): MR head/brain w con Accession Number(s): [id number] cc: Angela Ulloa; Genevieve Gtz MD CLINICAL HISTORY: eval for active MS lesions MR Brain with gadolinium Comparison: MR/REG/FL/SR - MR HEAD/BRAIN WO CON - 08/20/24 [...] in OV> 08/21/241842 DD/ 41 TD/TT: 08/21/241841 Stockholder: Procedure Note Donotuseinterpreter, Image - 08/21/2024 [place] [address] Magnetic Resonance Report Signed Patient: Danna Taylor#: [id number] : 1990Acct:[id number] Age/Sex: 34 / FADM Date: 08/18/24 Loc: .IM 459-[address]: Angela SIGALA Ordering Physician: Angela Ulloa Date of Service: 08/21/24 Procedure(s): MR head/brain w con Accession Number(s): [id number] cc: Angela Ulloa; Genevieve Gtz MD CLINICAL HISTORY: eval for active MS lesions MR Brain with gadolinium Comparison: MR/REG/FL/SR - MR HEAD/BRAIN WO CON - 08/20/24 [...] in OV> 08/21/241842 DD/ 41 TD/TT: 08/21/241841 Stockholder: us [facility] External Provider IMG MRI PROCEDURES Final Result * MR Brain w/o Contrast (08/20/2024 12:15 PM EDT) Anatomical Region Laterality Modality Brain Magnetic Resonan ce 08/20/2024 12:1 5 PM EDT Narrative 08/20/2024 1:37 PM EDT [place] [address] Magnetic Resonance Report Signed Patient: Shereen Taylor MR#: [id number] : 1990 Acct:[id number] Age/Sex: 34 / F ADM Date: 08/18/24 Loc: [facility] 459-[address]: Cheyenne Sears MD Ordering Physician: Tawny Taylor NP Date of Service: 08/20/24 Procedure(s): MR head/brain wo con Accession Number(s): [id number] cc: Genevieve Gtz MD; Tawny Taylor NP [...] 08/20/24 1331 DD/ 1215 TD/TT: 08/20/24 1300 Stockholder: Procedure Note Donotuseinterpreter, Image - 08/20/[address] [address] Magnetic Resonance Report Signed Patient: Danna Taylor#: [id number] : 1990Acct:[id number] Age/Sex: 34 / FADM Date: 08/18/24 Loc: [facility] 459-[address]: Cheyenne Sears MD Ordering Physician: Tawny Taylor NP Date of Service: 08/20/24 Procedure(s): MR head/brain wo con Accession Number(s): [id number] cc: Genevieve Gtz MD; Tawny Taylor NP [...] 08/20/24 1331 DD/ 1215 TD/TT: 08/20/24 1300 Stockholder: [facility] External Provider IMG MRI PROCEDURES Final Result * Hepatitis C Antibody with Reflex to HCV, RNA, Quantitative, Real-Time PCR (03/07/2024 9:45 AM EST) Pathologist [facility] Hepatitis C Antibody Nonreactive Nonreactive [facility] Comment:Antibodies to HCV no t detected; does not exclude early acuteHCV infection. Blood Venous blood specimen / Unknown 03/07/2024 9:45 AM EST 03/07/2024 11:34 AM EST Genevieve Casillas MD LAB BLOOD ORDERAB LES Final Result [facility] [address] [place] [phone] * HIV-1/2 Antigen and Antibodies, Fourth Generation, with Reflexes (03/07/2024 9:45 AM EST) HIV AB/AG Nonreactive Nonreactive [facility] Comment:HIV-1 p24 Ag and/or HIV-1/HIV-2 Ab not detected.A test result that is nonreactive does not exclude thepossibility of exposure to or infection with HIV-1 and/orHIV-2. Nonreactive results in this assay for individualswith prior exposure to HIV-1 and/or HIV-2 may be due toantigen and antibody levels that are below the limit ofdetection of this assay.The [employer] Messaging HIV Ag/Ab Combo assay result andsupplemental assay results should be interpreted inconjunction with the patient's clinical presentation,history and other laboratory results. If the results areinconsistent with clinical evidence, additional testing issuggested to confirm the result. Blood Venous blood specimen / Unknown 03/07/2024 9:45 AM EST 03/07/2024 11:34 AM EST us Genevieve Casillas MD LAB BLOOD ORDERAB LES Final Result Performing Organization Address City/State/[facility] Co de Phone Number [facility] [address] [place] [phone] * Hemoglobin A1c (03/07/2024 9:45 AM EST) Hemoglobin A1c 5.7 <6.0 % [facility] Comment:Hemoglobin A1C Refer ence Range Adults: 4.8 - 6.0 % Non diabetic: < 6.0 % Goal: < 7.0 %Additional Action Suggested: > 8.0 %Note: Hemoglobin A1c results are invalid for patients with abnormal amounts of HbF. Blood transfusions may impact the HbA1c concentration in the patient sample. Estimated Average Glucose 117 mg/dL [facility] Comment:eAG = Estimated ave rage glucose which is %A1C expressed asaverage glucose, using the formula of the M0D-OmfksekRvasbcr Glucose study (ADAG), Diabetes Care, Vol.31,#8,Sep. 2007 Blood Venous blood specimen / Unknown 03/07/2024 9:45 AM EST 03/07/2024 11:34 AM EST Genevieve Casillas MD LAB BLOOD ORDERAB LES Final Result Performing Organization Address City/[facility] Co de Phone Number [facility] [address] [place] [phone] * (ABNORMAL) Lipid Panel, Standard (03/07/2024 9:45 AM EST) Triglycerides 36 <150 mg/dL [facility] Comment:Desirable Triglyceri de: less than 150 mg/dLBorderline High Triglyceride 150-199 mg/dLHigh Triglyceride: 200-499 mg/dLVery High Triglyceride: greater than or equal to 5OO mg/dL Cholesterol 107 <200 mg/dL [facility] Comment:Desirable Cholestero l: less than 200 mg/dLBorderline High Cholesterol: 200-239 mg/dLHigh Cholesterol: greater than 239 mg/dL LDL Cholesterol Calculated 65 <100 mg/dL [facility] Comment:Desirable LDL: less than 100 mg/dLNear Optimal/Above Optimal LDL: 110- 129 mg/dLBorderline High LDL: 130-159 mg/dLHigh LDL: 160-189 mg/dLVery High LDL: greater than or equal to 190 mg/dL HDL Cholesterol 35(L) >40 mg/dL [facility] Comment:Desirable HDL: great er than 40 mg/dL Note: This HDL assay may give artificially low results in patients with liver disease. Blood Venous blood specimen / Unknown 03/07/2024 9:45 AM EST 03/07/2024 11:34 AM EST Genevieve Casillas MD LAB BLOOD ORDERAB LES Final Result Performing Organization Address [facility] Co de Phone Number [facility] [address] [place] [phone] [phone] from Last 3 Months or Most Recently Relevant to Health Maintenance Insurance [employer] < 65 [place] [id number] Care Teams Cardiograph Operator Relationship Specialty Start Date End Date Genevieve Gtz MD [address] [place] [phone] PCP - General Internal Medicine 10/12/22
--- OUTSIDE RECORDS SUMMARY | 2024-11-19 18:13 | XMS_ITS | Encounter Summary ---
Author Organization [employer] Address [address] [facility] 7t [place] [address] Care Team Providers Care Funeral Car Driver Name Role Phone Genevieve Gtz MD Primary Care Pro vider Encounter Details Date Type Department Care Team ([facility] st Contact Info) Description 11/19/2024 Telephone [facility] [address] [place], [place] [phone] Paola Thurston, RN [address] [place] [address] Social History Tobacco Use Types Packs/Day Years [...] t he electric, gas, oil or water [employer] threatened to shut off services in your [...] Telephone Encounter - Paola Thurston RN - 11/19/2024 3:34 PM EDT Pt did come in to PHYSICAL THER visit today. Unable to urinate, mouth swab sent to the lab. F/u with you 11/26/24. What PHYSICAL THER Tier would you like this patient to be? I recommend Tier X, please let me know if you agree or would rather patient be in another PHYSICAL THER Tier. Are you ok with PHYSICAL THER Televisit? Tier 1 = HIGH RISK, Monthly PHYSICAL THER visits Tier 2 = MODerate RISK, Q3 Month visits Tier 3 = LOW RISK = Q4-6 month visits documented in this encounter Plan of Treatment Upcoming Encounters Date Type Department Care Team (Late st Contact Info) Description 11/26/2024 10:15 AM EDT Office Visit [facility] MEDICINE [address] [place] [address] Genevieve Gtz MD [address] [place] [address] 02/11/2025 2:45 PM EST Clinical Support [facility] MED [facility] PEDS [address] [place], [place] [phone] Paola Thurston, KIRIT [address] [place] [address] documented as of this encounter Goals Goal [...] documented as of this encounter Care Teams Funeral Car Driver Relationship Specialty Start Date End Date Genevieve Gtz MD [address] [place] [phone] PCP - General Internal Medicine 10/12/22 documented as of this encounter
--- OUTSIDE RECORDS SUMMARY | 2024-11-19 18:13 | XMS_ITS | Encounter Summary ---
Author Organization [employer] Address [address] [facility] 7t [place] [address] Care Team Providers Care Anime Designer Name Role Phone Genevieve Gtz MD Primary Care Pro vider Reason for Visit * Reason Comments Med Refill Encounter Details Date Type Department Care Team (Late st Contact Info) Description 08/26/2023 Refill [facility] MED & PEDS [address] [place], [place] [phone] Genevieve Gtz MD [address] [place], [place] [phone] Benign essential hypertension Social History Tobacco Use [...] Description 11/26/2024 10:15 AM EDT Office Visit [facility] MEDICINE [address] [place] [address] Genevieve Gtz MD [address] [place] [address] 02/11/2025 2:45 PM EST Clinical Support [facility]EDS [address] [place], [place] [phone] Paola Thurston, RN [address] [place] [address] documented as of this encounter Goals Goal [...] documented as of this encounter Care Teams Anime Designer Relationship Specialty Start Date End Date Genevieve Gtz MD [address] [place] [address] [phone] PCP - General Internal Medicine 10/12/22 documented as of this encounter
--- OUTSIDE RECORDS SUMMARY | 2024-11-19 18:13 | XMS_ITS | Encounter Summary ---
Author Organization [employer] Address [address] [facility] 7t [place] [address] Care Team Providers Care Motor Transport Inspector Name Role Phone Genevieve Gtz MD Primary Care Pro vider Encounter Details Date Type Department Care Team (Late st Contact Info) Description 01/21/[address] [facility] MEDICINE [address] [place], [place] [phone] Genevieve Gtz MD [address] [place], [place] [phone] Social History Tobacco Use Types Packs/Day Years [...] Oxycodone 5mg , pt requests a callback [phone] documented in this encounter Plan of Treatment Upcoming Encounters Date Type Department Care Team (Late st Contact Info) Description 11/26/2024 10:15 AM EDT Office Visit [facility] MEDICINE [address] [place] [address] Genevieve Gtz MD [address] [place] [address] 02/11/2025 2:45 PM EST Clinical Support [facility] MED [facility] PEDS [address] [place] [address] Paola Thurston, KIRIT [address] [place] [address] documented as of this encounter Goals Goal [...] documented as of this encounter Care Teams Motor Transport Inspector Relationship Specialty Start Date End Date Genevieve Gtz MD [address] [place] [phone] PCP - General Internal Medicine 10/12/22 documented as of this encounter
--- OUTSIDE RECORDS SUMMARY | 2024-11-19 18:13 | XMS_ITS | Encounter Summary ---
Author Organization [employer] Address 75 [facility] 7t [place] [address] Care Team Providers Care Electronic Component Processor Name Role Phone Genevieve Gtz MD Primary Care Pro vider Encounter Details Date Type Department Care Team (Latest Contact Info) Description 11/19/2024 Travel Social History Tobacco Use Types Packs/Day [...] 11/26/2024 10:15 AM EDT Office Visit [facility] MEDICINE [address] [place] [address] Genevieve Gtz MD [address] [place], [place] [phone] 02/11/2025 2:45 PM EST Clinical Support [facility] MED & PEDS [address] [place], [place] [phone] Paola Thurston, RN [address] [place], [place] [phone] documented as of this encounter Goals Goal [...] documented as of this encounter Care Teams Electronic Component Processor Relationship Specialty Start Date End Date Genevieve Gtz MD [address] [place] [address] [phone] PCP - General Internal Medicine 10/12/22 documented as of this encounter
--- OUTSIDE RECORDS SUMMARY | 2024-11-19 18:13 | XMS_ITS | Encounter Summary ---
Author Organization [employer] [facility] Address [address] [place] [address] 7t [place] [address] Care Team Providers Care Catheter Finisher And Inspector Name Role Phone Carolina Hsu WOOD PANEL INSPECTOR Primary Care Provider Genevieve Wilson MD Primary Care Pro vider Encounter Details Date Type Department Care Team (Late Contact Info) Description 09/11/2022 Abstract [facility] [address] [place] [address] Carolina Hsu FNP Social History Tobacco Use [...] Upcoming Encounters Date Type Department Care Team ([facility] Contact Info) Description 11/26/2024 10:15 AM EDT Office Visit [facility] [address] [place] [address] Genevieve Gtz MD [address] [place] [address] 02/11/2025 2:45 PM EST Clinical Support [facility] [address] [place] [address] Paola Thurston, RN [address] [place] [address] documented as of this encounter Visit Diagnoses Not on filedocumented in this encounter Care Teams Catheter Finisher And Inspector Relationship Specialty Start Date End Date Carolina Hsu FNP PCP - General Family Medicine 01/16/22 10/11/22 Genevieve Gtz MD [address] [place] [address] PCP - General Internal Medicine 10/12/22 documented as of this encounter
--- OUTSIDE RECORDS SUMMARY | 2024-11-19 18:13 | XMS_ITS | Encounter Summary ---
Author Organization [facility] Address [address] [place] [phone] Phone Care Team Providers Care Recycling Collections Driver Name Role Phone EmilyAlyssa hutchinson Primary Care Provider Unava ilable Encounter Details Date Type Department Care Team (Late st Contact Info) Description 08/12/2024 TCM in Dialysis Clinic [facility] [address] [phone] Placido Carver MD [address] [phone] Social History Tobacco Use Types [...] 08/12/2024 The patient was seen for a [id number] visit as part of Transitional Care Management services. Attending Dehairing Machine Tender: PLACIDO CARVER MD Dialysis Location: [facility] Schedule: Shift: 2 INTERACTIVE CONTACT [...] follow-up appointments noted. VISIT DIAGNOSES CPT Code 86188 - High complexity, seen within 7 days of discharge. N18.6 End stage renal disease Signed by: PLACIDO CARVER MD on 08/12/2024 at 01:16:47 PM Transcribed by: PLACIDO CARVER MD on 08/12/2024 at 01:16:47 PM documented in this encounter Plan of Treatment Not on file documented as of this encounter Visit Diagnoses Not on filedocumented in this encounter Care Teams Recycling Collections Driver Relationship Specialty Start Date End Date Alyssa Manzano DO [address] [place] [address] PCP - General Family Medicine 03/02/21 documented as of this encounter
--- OUTSIDE RECORDS SUMMARY | 2024-11-19 18:13 | XMS_ITS | Encounter Summary ---
Author Organization [employer] [facility] Address [address] [place] [address] 7t [place] [address] Care Team Providers Care Auto Body Technician Name Role Phone Carolina Hsu SENIOR ORACLE DATABASE ADMINISTRATOR Primary Care Provider Genevieve Wilson MD Primary Care Pro vider Encounter Details Date Type Department Care Team (Late Contact Info) Description 09/11/2022 Abstract [facility] MED[facility]INE [address] [place] [address] Carolina Hsu FNP Social History Tobacco Use [...] Upcoming Encounters Date Type Department Care Team ([facility] Contact Info) Description 11/26/2024 10:15 AM EDT Office Visit [facility] [address] [place] [address] Genevieve Gtz MD [address] [place] [address] 02/11/2025 2:45 PM EST Clinical Support [facility] [address] [place] [address] Paola Thurston, RN [address] [place] [address] documented as of this encounter Visit Diagnoses Not on filedocumented in this encounter Care Teams Auto Body Technician Relationship Specialty Start Date End Date Carolina Hsu FNP PCP - General Family Medicine 01/16/22 10/11/22 Genevieve Gtz MD [address] [place] [address] PCP - General Internal Medicine 10/12/22 documented as of this encounter
--- OUTSIDE RECORDS SUMMARY | 2024-11-19 18:13 | XMS_ITS | Encounter Summary ---
Author Organization [employer] Address [address] [facility] 7t [place] [address] Care Team Providers Care Drapery Cutter Machine Name Role Phone Genevieve Gtz MD Primary Care Pro vider Reason for Visit * Reason Onset Date Comments Med Refill 10/23/2024 Encounter Details Date Type Department Care Team ([facility] Contact Info) Description 10/23/2024 Telephone [facility] [address] [place] [address] Genevivee Gtz MD [address] [place], [place] [phone] Med Refill Social History Tobacco Use Types [...] from pt retuning call Contact pt at [phone] * Telephone Encounter - Paola Thurston RN - 10/23/2024 10:24 AM EDT Pt requesting refill of Oxycodone 5mg. No show to [facility] appt 08/06/24. Multiple TC to pt to r/s, no answer, no c/b. Also no showed to appt with you 09/26/24. Please advise. * Telephone Encounter - Colten Mullen - 10/23/2024 10:07 AM EDT TC from pt requesting medication refill. Medications needing refill : oxyCODONE (Roxicodone) 5 MG immediate release tablet To be sent to: [facility]/pharmacy #[id number] documented in this encounter Plan of Treatment Upcoming Encounters Date Type Department Care Team (Late st Contact Info) Description 11/26/2024 10:15 AM EDT Office Visit [facility] [address] [place] [address] Genevieve Gtz MD [address] [place] [address] 02/11/2025 2:45 PM EST Clinical Support [facility] [address] [place] [address] Paola Thurston, KIRIT [address] [place] [address] documented as of this encounter Goals Goal [...] documented as of this encounter Care Teams Drapery Cutter Machine Relationship Specialty Start Date End Date Genevieve Gtz MD [address] [place] [address] PCP - General Internal Medicine 10/12/22 documented as of this encounter
--- OUTSIDE RECORDS SUMMARY | 2024-11-19 18:13 | XMS_ITS | Clinical Summary ---
Author Organization [address] [place] [address] Address [address] [place] [address] Phone Care Team Providers Care Container Maker Name Role Phone Betty Nugent MD Primary Care Provider [phone] Surgical History Surgery Date Site/Laterality Comments SECTION [...] 5 season) 2024 Influenza Vaccine (#1) 2024 RSV Immunization Adult Patie nts (1 - 1-dose 75+ series) 07/28/2063 HIB Vaccines Aged Out No longer eligi [...] complete this topic Insurance [place]ICA[place] - [place] [facility] Member Subscriber Plan / Payer (Ef fective 2023-Present) Name:ROWAN MULTANI Relation to Subscriber:Self Name:Rowan Multani Payer ID:[id number] Group ID:[id number] Type:Not on file Address: [address] [place] [phone] Care Teams Container Maker Relationship Specialty Start Date End Date Betty Nugent MD [address] [place] [address] PCP - General Internal Medicine 01/10/18
--- OUTSIDE RECORDS SUMMARY | 2024-11-19 18:13 | XMS_ITS | Clinical Summary ---
Author Organization [facility] Address [address] [phone] Phone Care Team Providers Care Qa Auditor Name Role Phone Katlyn Manzanofer Primary Care [...] 10/25/2024 Treatment [facility] [address] [phone] Ed Carver MD End stage renal disease; Dependence on renal dialysis 10/21/2024 Treatment [facility] [address] [phone] Ed Carver MD End stage renal disease; Dependence on renal dialysis 10/14/2024 Treatment [facility] [address] [phone] Ed Carver MD End stage renal disease; Dependence on renal dialysis 10/09/2024 Treatment [facility] [address] [phone] Ed Carver MD End stage renal disease; Dependence on renal dialysis 10/02/2024 Orders Only [facility] [address] [phone] Ed Carver MD 09/25/2024 Treatment [facility] [address] [phone] Ed Carver MD End stage renal disease; Dependence on renal dialysis 09/23/2024 TCM in Dialysis Clinic [facility] [address] [phone] Ed Carver MD 09/23/2024 Treatment [facility] [address] [phone] Ed Carver MD End stage renal disease; Dependence on renal dialysis 09/16/2024 Treatment [facility] [address] [phone] Ed Carver MD End stage renal disease; [...] Priority Date/Time Associated Diagnosis Comments HEMOGLOBIN Routine 11/13/2024 3:00 AM EDT HEPATITIS B SURFACE ANTIGEN W/REFL CONFIRM Routine 11/11/2024 3:00 AM EDT TRANSFERRIN SATURATION Routine 3:00 AM EDT PROTEIN, TOTAL, SERUM Routine 11/11/2024 3:00 AM EDT ELECTROLYTE PANEL Routine 11/11/2024 3:0 0 AM EDT MAGNESIUM Routine 11/11/2024 3:00 AM EDT LACTATE DEHYDROGENASE Routine 11/11/2024 3:00 AM EDT LIH (HC) Routine 11/11/2024 3:00 AM EDT GLUCOSE, RANDOM Routine 11/11/2024 3:00 AM EDT BILIRUBIN, TOTAL Routine 11/11/2024 3:00 AM EDT CREATININE, SERUM Routine 11/11/2024 3:0 0 AM EDT BUN/CREATININE RATIO Routine 11/11/2024 3:00 AM EDT ALT Routine 11/11/2024 3:00 AM EDT AST Routine 11/11/2024 3:00 AM EDT CALCIUM PHOSPHORUS PRODUCT, ADJUSTED (HC) Routine 11/11/2024 3:00 AM EDT ALKALINE PHOSPHATASE Routine 11/11/2024 3:00 AM EDT FERRITIN Routine 11/11/2024 3:00 AM EDT CBC AND DIFFERENTIAL Routine 11/11/2024 3:00 AM EDT KT/V NATURAL LOG, URR (HC) Routine 11/11/2024 3:00 AM EDT ELECTROLYTE PANEL Routine 10/30/2024 1:3 1 AM EDT HEMOGLOBIN Routine 10/23/2024 3:00 AM EDT LIH (HC) Routine 10/21/2024 3:00 AM EDT PHOSPHATE ( PHOSPHORUS) Routine 10/21/2024 3:00 AM EDT HEMOGLOBIN Routine 10/16/2024 3:00 AM EDT LIH (HC) Routine 10/07/2024 3:00 AM EDT KT/V NATURAL [...] URR (HC) Routine 09/02/2024 3:00 AM EDT from Last 3 Months Results * (ABNORMAL) Hemoglobin (11/13/2024 3:00 AM EDT) Only the most recent of6 resultswithin the time period is included. Hgb 7.8(L) 11.2 - 15.7 g/dL [facility] Hemoglobin x 3 23.4(L) 33.6 - 47.1 g/dL [facility] 11/13/2024 3:00 AM EDT 11/14/2024 12:48 PM EDT us Ed Carver MD LAB BLOOD ORDERABLES Final Result [facility] [address] [place] [address] * LIH (11/11/2024 3:00 AM EDT) Only the most recent of6 resultswithin the time period is included. Lipemia Normal Normal [facility] Icterus Normal Normal [facility] Hemolysis Normal Normal [facility] 11/11/2024 3:00 AM EDT 11/12/2024 2:20 PM EDT Ed Carver MD LAB HISTORICA [id number] RESULTS Final Result Performing Organization Address City/[facility]/ZIP Co de Phone Number [facility] [address] [place] [address] * (ABNORMAL) Kt/V Natural Log, URR (11/11/2024 3:00 AM EDT) Only the most recent of4 resultswithin the time period is included. Pathologist [facility] Treatment Time 186 min [facility] Pre-Weight, lb 87.9 kg [facility] Post-Weight, lb 85.2 kg [facility] Ultrafiltration Rate 10 <=13 mL/kg/hr [facility] Comment: Recommend achieving Ultrafiltration Rate (UFR) <=10 mL/kg/hr References: Estelle GARCIA et al. Kidney Int. 2010; 79(2):250-257 BUN Post Dialysis 22 7 - 25 mg/dL [facility] BUN 65(H) 7 - 25 mg/dL [facility] UREA REDUCTION RATIO (%) 66 >=65 % [facility] Kt/V Natural Log 1.25 >=1.2 [facility] 11/11/2024 3:00 AM EDT 11/12/2024 1:31 PM EDT dE Carver MD LAB HISTORICA [id number] RESULTS Final Result Performing Organization Address City/[facility]/ZIP Co de Phone Number [facility] [address] [place] [address] * (ABNORMAL) Calcium Phosphorus Product, Adjusted (11/11/2024 3:00 AM EDT) Only the most recent of3 resultswithin the time period is included. Albumin 4.0 3.6 - 5.4 g/dL [facility] Calcium 7.6(L) 8.6 - 10.3 mg/dL [facility] Phosphorus, Serum 8.8(H) 2.5 - 5.0 mg/dL [facility] Ca*PO4 66.9(A) <55.0 mg2/dL2 [facility] Calcium, Adjusted Total 7.6(L) 8.6 - 10.3 mg/dL [facility] CA*PO4 CORRCTD 66.9(A) <55.0 mg2/dL2 [facility] 11/11/2024 3:00 AM EDT 11/12/2024 2:20 PM EDT us Ed Carver MD LAB HISTORICA [id number] RESULTS Final Result Performing Organization Address [facility] Co de Phone Number [facility] [address] [place] [address] * Hepatitis B Surface Ag w/Reflex Confirmation (11/11/2024 3:00 AM EDT) Only the most recent of3 resultswithin the time period is included. Hep B Surface Antigen Negative Negative [facility] 11/11/2024 3:00 AM EDT 11/12/2024 2:20 PM EDT us Ed Carver MD LAB BLOOD ORDERABLES Final Result Performing Organization Address City/[facility] Co de Phone Number [facility] [address] [place] [address] * BUN/CREATININE RATIO (11/11/2024 3:00 AM EDT) Only the most recent of3 resultswithin the time period is included. BUN/Creatinine Ratio 6.6 <=23.0 [facility] 11/11/2024 3:00 AM EDT 11/12/2024 2:20 PM EDT us Ed Carver MD LAB HISTORICA [id number] RESULTS Final Result Performing Organization Address City/[facility] Co de Phone Number [facility] [address] [place] [address] * (ABNORMAL) TSAT (11/11/2024 3:00 AM EDT) Only the most recent of3 resultswithin the time period is included. [facility] Iron 42(L) 50 - 170 ug/dL [facility] Transferrin 161(L) 250 - 380 mg/dL [facility] TIBC 225 211 - 406 ug/dL [facility] Iron Saturation (TSat) 19(L) 22 - 52 % [facility] 11/11/2024 3:00 AM EDT 11/12/2024 2:20 PM EDT us Ed Carver MD LAB BLOOD ORDERABLES Final Result Performing Organization Address [facility] Co de Phone Number [facility] [address] [place] [address] * (ABNORMAL) CBC and Differential (11/11/2024 3:00 AM EDT) Only the most recent of3 resultswithin the time period is included. [facility] DIFFERENTIAL MANUAL, 2 Not Indicated [facility] White Blood Cells 8.5 4.0 - 10.0 K/uL [facility] RBC 2.44(L) 3.93 - 5.22 M/uL [facility] Hgb 7.9(L) 11.2 - 15.7 g/dL [facility] Hemoglobin x 3 23.7(L) 33.6 - 47.1 g/dL [facility] Hematocrit 24.6(L) 34.1 - 44.9 % [facility] MCV 100.8(H) 79.4 - 94.8 fL [facility] MCH 32.4(H) 25.6 - 32.2 pg [facility] MCHC 32.1(L) 32.2 - 35.5 g/dL [facility] RDW 14.3 11.7 - 14.4 % [facility] Platelets 148(L) 182 - 369 K/uL [facility] MPV 12.6 9.2 - 12.8 fL [facility] Neutrophils Relative 80.4(H) 34.0 - 71.1 % [facility] Lymphocytes Relative 7.4(L) 19.3 - 51.7 % [facility] Monocytes 7.5 4.7 - 12.5 % [facility] Eosinophils Relative 4.0 0.7 - 5.8 % [facility] Basophils Relative 0.2 0.1 - 1.2 % [facility] Immature Granulocytes 0.5 0.0 - 1.0 % [facility] 11/11/2024 3:00 AM EDT 11/12/2024 2:00 PM EDT Ed Carver MD LAB BLOOD ORDERABLES Final Result Performing Organization Address [facility] Co de Phone Number [facility] [address] [place] [address] * ALT (11/11/2024 3:00 AM EDT) Only the most recent of3 resultswithin the time period is included. ALT (SGPT) 22 10 - 49 U/L [facility] 11/11/2024 3:00 AM EDT 11/12/2024 2:20 PM EDT Ed Carver MD LAB BLOOD ORDERABLES Final Result Performing Organization Address [facility] de Phone Number [facility] [address] [place] [address] * AST (11/11/2024 3:00 AM EDT) Only the most recent of3 resultswithin the time period is included. AST (SGOT) 25 <34 U/L [facility] 11/11/2024 3:00 AM EDT 11/12/2024 2:20 PM EDT Ed Carver MD LAB BLOOD ORDERABLES Final Result Performing Organization Address [facility] Co de Phone Number [facility] [address] [place] [address] * Protein, total (11/11/2024 3:00 AM EDT) Only the most recent of3 resultswithin the time period is included. Total Protein 6.9 6.4 - 8.9 g/dL [facility] 11/11/2024 3:00 AM EDT 11/12/2024 2:20 PM EDT Ed Carver MD LAB BLOOD ORDERABLES Final Result Performing Organization Address City/[facility] Co de Phone Number [facility] [address] [place] [address] * (ABNORMAL) Alkaline phosphatase (11/11/2024 3:00 AM EDT) Only the most recent of3 resultswithin the time period is included. Alkaline Phosphatase 173(H) 46 - 116 U/L [facility] 11/11/2024 3:00 AM EDT 11/12/2024 2:20 PM EDT Ed Carver MD LAB BLOOD ORDERABLES Final Result Performing Organization Address [facility] de Phone Number [facility] [address] [place] [address] * (ABNORMAL) Magnesium (11/11/2024 3:00 AM EDT) Only the most recent of3 resultswithin the time period is included. Magnesium 2.8(H) 1.9 - 2.7 mg/dL [facility] 11/11/2024 3:00 AM EDT 11/12/2024 2:20 PM EDT Ed Carver MD LAB BLOOD ORDERABLES Final Result Performing Organization Address [facility] Co de Phone Number [facility] [address] [place] [address] * (ABNORMAL) Lactate dehydrogenase (11/11/2024 3:00 AM EDT) Only the most recent of3 resultswithin the time period is included. LDH 342(H) 120 - 246 U/L [facility] 11/11/2024 3:00 AM EDT 11/12/2024 2:20 PM EDT us Ed Carver MD LAB BLOOD ORDERABLES Final Result Performing Organization Address City/[facility] Co de Phone Number [facility] [address] [place] [address] * (ABNORMAL) Glucose, random (11/11/2024 3:00 AM EDT) Only the most recent of3 resultswithin the time period is included. Glucose 109(H) 70 - 99 mg/dL [facility] Comment: ADA guidelines outline the following fasting glucose ranges: Normal: <100 Prediabetes: 100-125 Diabetes: >125 11/11/2024 3:00 AM EDT 11/12/2024 2:20 PM EDT us Ed Carver MD LAB BLOOD ORDERABLES Final Result Performing Organization Address [facility] Co de Phone Number [facility] [address] [place] [address] * Ferritin (11/11/2024 3:00 AM EDT) Only the most recent of3 resultswithin the time period is included. Ferritin 113 10 - 291 ng/mL [facility] 11/11/2024 3:00 AM EDT 11/12/2024 2:20 PM EDT Ed Carver MD LAB BLOOD ORDERABLES Final Result Performing Organization Address [facility] de Phone Number [facility] [address] [place] [address] * (ABNORMAL) Creatinine, serum (11/11/2024 3:00 AM EDT) Only the most recent of3 resultswithin the time period is included. Creatinine 9.79(H) 0.55 - 1.02 mg/dL [facility] 11/11/2024 3:00 AM EDT 11/12/2024 2:20 PM EDT us Ed Carver MD LAB BLOOD ORDERABLES Final Result Performing Organization Address [facility] Co de Phone Number [facility] [address] [place] [address] * Bilirubin, total (11/11/2024 3:00 AM EDT) Only the most recent of3 resultswithin the time period is included. Total Bilirubin 0.4 0.3 - 1.2 mg/dL [facility] 11/11/2024 3:00 AM EDT 11/12/2024 2:20 PM EDT us Ed Carver MD LAB BLOOD ORDERABLES Final Result Performing Organization Address [facility] de Phone Number [facility] [address] [place] [address] * (ABNORMAL) Electrolyte panel (11/11/2024 3:00 AM EDT) Only the most recent of5 resultswithin the time period is included. Sodium 139 136 - 145 mEq/L [facility] Potassium 5.8(H) 3.4 - 5.0 mEq/L [facility] Chloride 104 98 - 107 mEq/L [facility] Bicarbonate (CO2) 21 21 - 31 mEq/L [facility] Anion Gap 14 3 - 14 mEq/L [facility] 11/11/2024 3:00 AM EDT 11/12/2024 2:20 PM EDT us Ed Carver MD LAB BLOOD ORDERABLES Final Result Performing Organization Address [facility] Co de Phone Number [facility] [address] [place] [address] * (ABNORMAL) Phosphorus (10/21/2024 3:00 AM EDT) Only the most recent of2 resultswithin the time period is included. Phosphorus, Serum 8.8(H) 2.5 - 5.0 mg/dL [facility] 10/21/2024 3:00 AM EDT 10/22/2024 1:27 PM EDT Ed Carver MD LAB BLOOD ORDERABLES Final Result Performing Organization Address City/[facility]/ZIP Co de Phone Number [facility] [address] [place] [address] * (ABNORMAL) Potassium (09/09/2024 2:03 AM EDT) [facility] Potassium 6.9(HH) 3.3 - 5.1 mmol/L See order comments Comment: Critical [pots] sent by a secure message and confirmed by (dr. graves, 09/09/24 and time02:29) [email or web address] 09/09/2024 2:03 AM EDT 09/09/2024 2:03 AM EDT Fernando Siddiqi MD LAB BLOOD ORDERABLES Final Re sult Performing Organization Address City/[facility]/ZIP Co de Phone Number [place] See order comments [place] [address] * Confirmation Test HCV (09/02/2024 3:00 AM EDT) [facility] Hep C Ab Confirmation Not needed [facility] 09/02/2024 3:00 AM EDT 09/03/2024 2:33 PM EDT us Ed Carver MD LAB BLOOD ORDERABLES Final Result Performing Organization Address City/[facility]/ZIP Co de Phone Number [facility] [address] [place] [address] * HEPATITIS C ABS W/REFLEX RNA DETECTR (09/02/2024 3:00 AM EDT) [facility] Hep C Virus Ab Non-Reacti ve Non-Reacti ve [facility] 09/02/2024 3:00 AM EDT 09/03/2024 2:17 PM EDT Ed Carver MD LAB HISTORICA [id number] RESULTS Final Result Performing Organization Address [facility] de Phone Number [facility] [address] [place] [address] * PTH, Intact (09/02/2024 3:00 AM EDT) PTH, Intact 686 160 - 721 pg/mL [facility] Comment: Suggested (KDIGO) ESRD maintenance range is two to nine times the upper normal limit (80.1 pg/mL) for the laboratory. 09/02/2024 3:00 AM EDT 09/03/2024 2:17 PM EDT us Ed Carver MD LAB BLOOD ORDERABLES Final Result Performing Organization Address [facility] de Phone Number [facility] [address] [place] [address] * (ABNORMAL) Hemoglobin A1c (09/02/2024 3:00 AM EDT) Hemoglobin A1C 6.2(H) <5.7 % [facility] Comment: Methodology: Enzymatic Normal: <5.7% Prediabetes: 5.7-6.4% Diabetes: >6.4% Diabetic Glucose Control Evaluation: Therapeutic action suggested at >8.0% ADA recommends a glycemic goal of <7.0% 09/02/2024 3:00 AM EDT 09/03/2024 2:33 PM EDT Ed Carver MD LAB BLOOD ORDERABLES Final Result Performing Organization Address [facility] de Phone Number [facility] [address] [place] [address] * (ABNORMAL) Lipid panel (09/02/2024 3:00 AM [...] ORDERABLES Final Result [facility] [address] [place] [address] from Last 3 Months Insurance [facility] ([id number]) [facility] ([id number]) [facility] ([id number]) Care Teams Qa Auditor Relationship Specialty Start Date End Date Alyssa Manzano DO [address] [place] [address] PCP - General Family Medicine 03/02/21
--- OUTSIDE RECORDS SUMMARY | 2024-11-19 18:13 | XMS_ITS | Encounter Summary ---
Author Organization [employer] Address 75 [facility] 7t [place] [address] Care Team Providers Care Stem Processing Machine Operator Name Role Phone Carolina Hsu OFFICE SPEC Primary Care Provider Genevieve Wilson MD Primary Care Pro vider Reason for Visit * Reason Onset Date Comments Appointment Request 03/30/2022 Encounter Details Date Type Department Care Team ([facility] st Contact Info) Description 03/30/2022 Telephone [facility] MEDICINE [address] [place] [address] [phone] Carolina Hsu FNP Appointment Request Social History [...] EST TC to pt, NCNS for todays TRANSPORTATION MECHANIC Renewal appt. Pt stated she is currently admitted to [facility], she statedshe has fluid in her lungs and she's a mess. Wished patient well and told her I would forward this information to her PCP. Requested she call back to reschedule TRANSPORTATION MECHANIC appt when she's feeling better. * Telephone Encounter - Stephen Davison - 03/30/2022 10:41 AM EST documented in this encounter Plan of Treatment Upcoming Encounters Date Type Department Care Team (Late st Contact Info) Description 11/26/2024 10:15 AM EDT Office Visit [facility] MEDICINE [address] [place] [address] Genevieve Gtz MD [address] [place] [address] [phone] 02/11/2025 2:45 PM EST Clinical Support [facility] MED & PEDS 505 [place], [place] [phone] Paola Thurston, KIRIT 505 [place], [place] [phone] documented as of this encounter Visit Diagnoses Not on filedocumented in this encounter Care Teams Stem Processing Machine Operator Relationship Specialty Start Date End Date Carolina Hsu FNP PCP - General Family Medicine 01/16/22 10/11/22 Genevieve Gtz MD [address] [place] [address] PCP - General Internal Medicine 10/12/22 documented as of this encounter
--- OUTSIDE RECORDS SUMMARY | 2024-11-19 18:13 | XMS_ITS | Encounter Summary ---
Author Organization [employer] Address [address] [place] [address] 7t [place] [address] Care Team Providers Care Fabricator Artificial Breast Name Role Phone Genevieve Gtz MD Primary Care Pro vider Reason for Visit * Reason Onset Date Comments Med Refill 10/26/2022 Encounter Details Date Type Department Care Team ([facility] st Contact Info) Description 10/26/2022 Telephone [facility] 230 [place], [place] [phone] Genevieve Gtz MD 230 [place], [place] [phone] Med Refill Social History Tobacco Use Types [...] medication oxycodone 5 mg. Please send to [facility]/pharmacy #[id number] - [place] - [address] Cool documented in this encounter Plan of Treatment Upcoming Encounters Date Type Department Care Team (Late st Contact Info) Description 11/26/2024 10:15 AM EDT Office Visit [facility] 230 [place] [address] Genevieve Gtz MD [address] [place] [address] 02/11/2025 2:45 PM EST Clinical Support [facility] MED [facility]EDS 505 [place], [place] [phone] Paola Thurston, RN 505 [place], [place] [phone] documented as of this encounter Visit Diagnoses Not on filedocumented in this encounter Additional Health Concerns Assessment Noted Time PHQ-9 Depression Total Score: 0 10/13/19 2:37 PM EDT documented as of this encounter Care Teams Fabricator Artificial Breast Relationship Specialty Start Date End Date Genevieve Gtz MD [address] [place] [address] PCP - General Internal Medicine 10/12/22 documented as of this encounter
--- OUTSIDE RECORDS SUMMARY | 2024-11-19 18:13 | XMS_ITS | Encounter Summary ---
Author Organization [employer] Address [address] [place] [address] 7t [place] [address] Care Team Providers Care Garage Door Technician Name Role Phone Carolina Hsu Primary Care Provider Genevieve Wilson MD Primary Care Pro vider Reason for Visit * Reason Onset Date Comments Med Refill 07/28/2022 Encounter Details Date Type Department Care Team ([facility] st Contact Info) Description 07/28/2022 Telephone [facility] [address] [place] [address] [phone] Carolina Hsu FNP Med Refill Social History [...] Description 11/26/2024 10:15 AM EDT Office Visit [facility] 230 [place] [address] Genevieve Gtz MD 230 [place], [place] [phone] 02/11/2025 2:45 PM EST Clinical Support [facility] MED & PEDS 505 [place], [place] [phone] Paola Thurston, KIRIT 505 [place], [place] [phone] documented as of this encounter Visit Diagnoses Diagnosis Acute on chronic heart failure, unspecified heart failure type (CMS/HCC)- Primary Benign essential hypertension Essential hypertension, benign documented in this encounter Care Teams Garage Door Technician Relationship Specialty Start Date End Date Carolina Hsu FNP PCP - General Family Medicine 01/16/22 10/11/22 Genevieve Gtz MD [address] [place] [address] [phone] PCP - General Internal Medicine 10/12/22 documented as of this encounter
--- OUTSIDE RECORDS SUMMARY | 2024-11-19 18:13 | XMS_ITS | Encounter Summary ---
Author Organization [employer] [facility] Address [address] [place] [address] 7t [place] [address] Care Team Providers Care Field Interviewer Name Role Phone Carolina Hsu RAILROAD CAR INSPECTOR Primary Care Provider Genevieve Wilson MD Primary Care Pro vider Encounter Details Date Type Department Care Team (Late Contact Info) Description 09/11/2022 Abstract [facility] MEDICINE [address] [place] [phone] Carolina Hsu FNP Social History Tobacco Use [...] Upcoming Encounters Date Type Department Care Team ([facility] Contact Info) Description 11/26/2024 10:15 AM EDT Office Visit [facility] MEDICINE [address] [place] [address] Genevieve Gtz MD 230 [place] [address] 02/11/2025 2:45 PM EST Clinical Support [facility] MED & PEDS 505 [place] [address] Paola Thurston, RN 505 [place] [address] documented as of this encounter Visit Diagnoses Not on filedocumented in this encounter Care Teams Field Interviewer Relationship Specialty Start Date End Date Carolina Hsu FNP PCP - General Family Medicine 01/16/22 10/11/22 Genevieve Gtz MD [address] [place] [address] PCP - General Internal Medicine 10/12/22 documented as of this encounter
--- OUTSIDE RECORDS SUMMARY | 2024-11-19 18:13 | XMS_ITS | Encounter Summary ---
Author Organization [employer] Address 75 [facility] 7t [place] [address] Care Team Providers Care Investment Recovery Technician Name Role Phone Genevieve Gtz MD Primary Care Pro vider Reason for Visit * Reason Onset Date Comments Hospital Follow-up 03/04/2024 Encounter Details Date Type Department Care Team ([facility] Contact Info) Description 03/04/2024 Telephone [facility] MEDICINE 230 [place], [place] [phone] Genevieve Gtz MD 230 [place] [address] Hospital Follow-up Social History Tobacco Use Types [...] from pt requesting a HDF appt. Hospital: [facility] Date of admission: 02/21/2024 Discharge date: 02/01/2025 Diagnosed: Oxygen , Infection Dialysis tube *Send message to [facility] Clinical Care Coordinators documented in this encounter Plan of Treatment Upcoming Encounters Date Type Department Care Team (Late st Contact Info) Description 11/26/2024 10:15 AM EDT Office Visit [facility] MEDICINE 230 [place] [address] Genevieve Gtz MD 230 [place] [address] 02/11/2025 2:45 PM EST Clinical Support [facility] MED & PEDS 505 [place] [address] Paola Thurston, KIRIT 505 [place] [address] documented as of this encounter Goals Goal [...] documented as of this encounter Care Teams Investment Recovery Technician Relationship Specialty Start Date End Date Genevieve Gtz MD [address] [place] [phone] PCP - General Internal Medicine 10/12/22 documented as of this encounter
--- OUTSIDE RECORDS SUMMARY | 2024-11-19 18:13 | XMS_ITS | Encounter Summary ---
Author Organization [employer] Address 75 [facility] 7t [place] [address] Care Team Providers Care Digital Learning Platforms Manager Name Role Phone Genevieve Gtz MD Primary Care Pro vider Reason for Visit * Reason Onset Date Comments Medication Question 11/11/2024 Encounter Details Date Type Department Care Team ([facility] Contact Info) Description 11/11/2024 Telephone [facility] MEDICINE 230 [place], [place] [phone] Genevieve Gtz MD 230 [place], [place] [phone] Medication Question Social History Tobacco Use Types Packs/Day Years [...] * Telephone Encounter - Colten Mullen - 11/11/2024 8:15 AM EDT Tc from pt requesting refill for oxyCODONE (Roxicodone) 5 MG immediate release tablet Contact pt at [phone] documented in this encounter Plan of Treatment Upcoming Encounters Date Type Department Care Team (Late st Contact Info) Description 11/26/2024 10:15 AM EDT Office Visit [facility] MEDICINE [address] [place] [address] Genevieve Gtz MD 230 [place] [address] 02/11/2025 2:45 PM EST Clinical Support [facility] CHC MED & PEDS 505 [place] [address] Paola Thurston, KIRIT 505 [place] [address] documented as of this encounter Goals Goal Patient Goal Type Associated Problems Recent Progress Patient-Stated? Author Blood Pressure < 140/90 Blood Pressure 129/75(2024 9:08 AM EST) No Jaime Chilel Hemoglobin A1c < 8 Result Component 5.7( 9:45 AM EST) Jaime Vasquez documented as of this encounter Visit Diagnoses Diagnosis Chronic ulcer of left foot due to diabetes mellitus (CMS/HCC)- Primary documented in this encounter Additional Health Concerns Assessment Noted Time PHQ-9 Depression Total Score: 0 10/23/19 24 2:23 PM EDT documented as of this encounter Care Teams Digital Learning Platforms Manager Relationship Specialty Start Date End Date Genevieve Gtz MD [address] [place] [phone] PCP - General Internal Medicine 10/12/22 documented as of this encounter
--- OUTSIDE RECORDS SUMMARY | 2024-11-19 18:13 | XMS_ITS | Encounter Summary ---
Author Organization [employer] Address 75 [facility] 7t [place] [address] Care Team Providers Care Avionics Systems Engineer Name Role Phone Genevieve Gtz MD Primary Care Pro vider Reason for Visit * Reason Onset Date Comments Med Refill 06/20/2024 Encounter Details Date Type Department Care Team ([facility] Contact Info) Description 06/20/2024 Telephone [facility] MEDICINE 230 [place] [address] Genevieve Gtz MD 230 [place], [place] [phone] Med Refill Social History Tobacco Use Types [...] release tablet To be sent to: [id number] [place] [address] - [address] [place] [address] documented in this encounter Plan of Treatment Upcoming Encounters Date Type Department Care Team (Late st Contact Info) Description 11/26/2024 10:15 AM EDT Office Visit [facility] MEDICINE 230 [place] [address] Genevieve Gtz MD 230 [place] [address] 02/11/2025 2:45 PM EST Clinical Support [facility] CHC MED & PEDS 505 [place] [address] Paola Thurston, KIRIT 505 [place] [address] documented as of this encounter Goals Goal [...] documented as of this encounter Care Teams Avionics Systems Engineer Relationship Specialty Start Date End Date Genevieve Gtz MD [address] [place] [address] PCP - General Internal Medicine 10/12/22 documented as of this encounter
--- OUTSIDE RECORDS SUMMARY | 2024-11-19 18:13 | XMS_ITS | Encounter Summary ---
Author Organization [employer] Address [address] [place] [address] 7t [place] [address] Care Team Providers Care Body Presser Name Role Phone Genevieve Gtz MD Primary Care Pro vider Reason for Visit * Reason Onset Date Comments Med Refill 11/27/2022 Encounter Details Date Type Department Care Team ([facility] st Contact Info) Description 11/27/2022 Telephone [facility] MEDICINE 230 [place], [place] [phone] Genevieve Gtz MD 230 [place], [place] [phone] Med Refill Social History Tobacco Use Types [...] medication oxycodone 5 mg. Please send to [facility]/pharmacy #[id number] - [place] - [address] Cool documented in this encounter Plan of Treatment Upcoming Encounters Date Type Department Care Team (Late st Contact Info) Description 11/26/2024 10:15 AM EDT Office Visit [facility] MEDICINE 230 [place] [address] Genevieve Gtz MD [address] [place] [address] 02/11/2025 2:45 PM EST Clinical Support [facility] CHC MED & PEDS 505 [place], [place] [phone] Paola Thurston, RN 505 [place], [place] [phone] documented as of this encounter Visit Diagnoses Not on filedocumented in this encounter Additional Health Concerns Assessment Noted Time PHQ-9 Depression Total Score: 0 10/13/19 2:37 PM EDT documented as of this encounter Care Teams Body Presser Relationship Specialty Start Date End Date Genevieve Gtz MD [address] [place] [address] PCP - General Internal Medicine 10/12/22 documented as of this encounter
--- OUTSIDE RECORDS SUMMARY | 2024-11-19 18:13 | XMS_ITS | Encounter Summary ---
Author Organization [employer] Address 75 [facility] 7t [place] [address] Care Team Providers Care J2Ee Consultant Name Role Phone Genevieve Gtz MD Primary Care Pro vider Reason for Visit * Reason Onset Date Comments Med Refill 06/21/2023 Encounter Details Date Type Department Care Team ([facility] Contact Info) Description 06/21/2023 Telephone [facility] MEDICINE 230 [place], [place] [phone] Genevieve Gtz MD 230 [place], [place] [phone] Med Refill Social History Tobacco Use Types [...] be sent to: [facility]/pharmacy #[id number] [place], [place] - [address] [place] [address] documented in this encounter Plan of Treatment Upcoming Encounters Date Type Department Care Team (Late st Contact Info) Description 11/26/2024 10:15 AM EDT Office Visit [facility] MEDICINE 230 [place] [address] Genevieve Gtz MD 230 [place] [address] 02/11/2025 2:45 PM EST Clinical Support [facility]C MED & PEDS 505 [place] [address] Paola Thurston, KIRIT 505 [place] [address] documented as of this encounter Goals Goal [...] documented as of this encounter Care Teams J2Ee Consultant Relationship Specialty Start Date End Date Genevieve Gtz MD [address] [place] [address] PCP - General Internal Medicine 10/12/22 documented as of this encounter
--- OUTSIDE RECORDS SUMMARY | 2024-11-19 18:13 | XMS_ITS | Encounter Summary ---
Author Organization [facility] Address [address] [facility] [address] [place] [address] Phone Care Team Providers Care Parachute Cushion Installer Name Role Phone Genevieve Gtz MD Primary Care Pro vider Encounter Details Date Type Department Care Team (Late st Contact Info) Description 11/14/2024 Home Care Visit [facility] 30 [place] [phone] Angela Foster RN [address] [place], [place] [phone] [email or web address] CASE COMMUNICATION Social History Tobacco Use Types Packs/Day Years [...] on filedocumented in this encounter Care Teams Parachute Cushion Installer Relationship Specialty Start Date End Date Genevieve Gtz MD 230 [place] [address] PCP - General Internal Medicine 11/06/24 documented as of this encounter Additional Source Comments The information contained in this document represents components of the legal health record. It is not the complete legal health record.[facility]
--- OUTSIDE RECORDS SUMMARY | 2024-11-19 18:13 | XMS_ITS | Encounter Summary ---
Author Organization [employer] Address 75 [facility] 7t [place] [address] Care Team Providers Care Land Acquisition Manager Name Role Phone Genevieve Gtz MD Primary Care Pro vider Reason for Visit * Reason Comments Med Change Request Encounter Details Date Type Department Care Team ([facility] st Contact Info) Description 03/15/2023 Refill C [facility]S [address] [place], [place] [phone] Genevieve Gtz MD 230 [place], [place] [phone] Benign essential hypertension Social History Tobacco Use [...] Description 11/26/2024 10:15 AM EDT Office Visit [facility] MEDICINE 230 [place] [address] Genevieve Gtz MD [address] [place] [address] 02/11/2025 2:45 PM EST Clinical Support [facility] CHC MED & PEDS 505 [place], [place] [phone] Paola Thurston, RN 505 [place] [address] documented as of this encounter Visit Diagnoses Diagnosis Benign essential hypertension Essential hypertension, benign documented in this encounter Additional Health Concerns Assessment Noted Time PHQ-9 Depression Total Score: 0 10/13/19 23 2:37 PM EDT documented as of this encounter Care Teams Land Acquisition Manager Relationship Specialty Start Date End Date Genevieve Gtz MD 230 [place] [address] PCP - General Internal Medicine 10/12/22 documented as of this encounter
--- OUTSIDE RECORDS SUMMARY | 2024-11-19 18:13 | XMS_ITS | Encounter Summary ---
Author Organization [employer] Address 75 [facility] 7t [place] [address] Care Team Providers Care Acute Care Nursing Assistant Name Role Phone Genevieve Gtz MD Primary Care Pro vider Reason for Visit * Reason Onset Date Comments Med Refill 01/14/2024 Encounter Details Date Type Department Care Team ([facility] Contact Info) Description 01/14/2024 Telephone [facility] MEDICINE 230 [place] [address] Genevieve Gtz MD 230 [place], [place] [phone] Med Refill Social History Tobacco Use Types [...] any questions you can contact pt at [phone]. * Telephone Encounter - Noelle Rodrigues - 01/14/2024 11:29 AM EST TC from pt requesting medication refill. Medications needing refill : oxyCODONE (Roxicodone) 5 MG immediate release tablet To be sent to: [facility]/pharmacy #[id number] [place] [address] documented in this encounter Plan of Treatment Upcoming Encounters Date Type Department Care Team (Late st Contact Info) Description 11/26/2024 10:15 AM EDT Office Visit [facility] MEDICINE 230 [place], [place] [phone] Genevieve Gtz MD 230 [place], [place] [phone] 02/11/2025 2:45 PM EST Clinical Support [facility] MED & PEDS 505 [place], [place] [phone] Paola Thurston, KIRIT 505 [place] [address] documented as of this encounter Goals Goal [...] documented as of this encounter Care Teams Acute Care Nursing Assistant Relationship Specialty Start Date End Date Genevieve Gtz MD [address] [place] [address] PCP - General Internal Medicine 10/12/22 documented as of this encounter
--- OUTSIDE RECORDS SUMMARY | 2024-11-19 18:13 | XMS_ITS | Encounter Summary ---
Author Organization [employer] Address [address] [facility] 7t [place] [address] Care Team Providers Care Director Sales And Trade Marketing Name Role Phone Genevieve Gtz MD Primary Care Pro vider Reason for Visit * Reason Onset Date Comments FYI 08/08/2024 Encounter Details Date Type Department Care Team ([facility] Contact Info) Description 08/08/2024 Telephone [facility] MEDICINE 230 [place], [place] [phone] Genevieve Gtz MD 230 [place], [place] [phone] FYI Social History Tobacco Use Types Packs/Day [...] 11:13 AM EDT Tc from Helen with [facility] reporting that patient was referred for VNA services for wound care.Patient declined services, stating she manages her wound care independently and obtains her own supplies. Helen just wanted FYI to PCP documented in this encounter Plan of Treatment Upcoming Encounters Date Type Department Care Team (Late st Contact Info) Description 11/26/2024 10:15 AM EDT Office Visit [facility] MEDICINE 230 [place] [address] Genevieve Gtz MD 230 [place] [address] 02/11/2025 2:45 PM EST Clinical Support [facility] MED & PEDS 505 [place] [address] Paola Thurston, KIRIT 505 [place] [address] documented as of this encounter Goals Goal [...] as of this encounter Care Teams Director Sales And Trade Marketing Relationship Specialty Start Date End Date Genevieve Gtz MD [address] [place] [address] PCP - General Internal Medicine 10/12/22 documented as of this encounter
--- OUTSIDE RECORDS SUMMARY | 2024-11-19 18:13 | XMS_ITS | Encounter Summary ---
Author Organization [facility] Address [address] [place] [phone] Phone Care Team Providers Care Dryland Farmer Name Role Phone EmilyAlyssa hutchinson Primary Care Provider Unava ilable Encounter Details Date Type Department Care Team (Late st Contact Info) Description 07/08/2024 TCM in Dialysis Clinic [facility] [address] [phone] Placido Carver MD [address] [phone] Social History Tobacco Use Types [...] 07/08/2024 The patient was seen for a plgs-gw-ozaw visit as part of Transitional Care Management services. Attending Cable Splicer Assistant: PLACIDO CARVER MD Dialysis Location: [facility] Schedule: Shift: 2 INTERACTIVE CONTACT Contact [...] - No ulcers. VISIT DIAGNOSES CPT Code 92730 - High complexity, seen within 7 days of discharge. N18.6 End stage renal disease Signed by: PLACIDO CARVER MD on 07/26/2024 at 02:13:33 PM Transcribed by: PLACIDO CARVER MD on 07/26/2024 at 02:13:33 PM documented in this encounter Plan of Treatment Not on file documented as of this encounter Visit Diagnoses Not on filedocumented in this encounter Care Teams Dryland Farmer Relationship Specialty Start Date End Date Alyssa Manzano DO 230 [place] [address] PCP - General Family Medicine 03/02/21 documented as of this encounter
--- OUTSIDE RECORDS SUMMARY | 2024-11-19 18:13 | XMS_ITS | Encounter Summary ---
Author Organization [employer] Address [address] [facility] 7t [place] [address] Care Team Providers Care Child Care Coordinator Name Role Phone Genevieve Gtz MD Primary Care Pro vider Reason for Visit * Reason Onset Date Comments Call Back Request 06/15/2023 Encounter Details Date Type Department Care Team ([facility] Contact Info) Description 06/15/2023 Telephone [facility] MEDICINE 230 [place], [place] [phone] Genevieve Gtz MD 230 [place], [place] [phone] Call Back Request Social History Tobacco Use [...] pt requesting a call back in regards BRIDGE CONSTRUCTION INSPECTOR medication. documented in this encounter Plan of Treatment Upcoming Encounters Date Type Department Care Team ([facility] st Contact Info) Description 11/26/2024 10:15 AM EDT Office Visit [facility] MEDICINE 230 [place] [address] Genevieve Gtz MD 230 [place] [address] 02/11/2025 2:45 PM EST Clinical Support [facility] MED & PEDS 505 [place] [address] Paola Thurston, RN 505 [place] [address] documented as of this encounter Goals Goal [...] documented as of this encounter Care Teams Child Care Coordinator Relationship Specialty Start Date End Date Genevieve Gtz MD [address] [place] [address] PCP - General Internal Medicine 10/12/22 documented as of this encounter
--- OUTSIDE RECORDS SUMMARY | 2024-11-19 18:13 | XMS_ITS | Encounter Summary ---
Author Organization [facility] Address [address] [place] [address] Phone Care Team Providers Care Supervisor Glycerin Name Role Phone Genevieve Gtz MD Primary Care Pro vider Encounter Details Date Type Department Care Team (Late st Contact Info) Description 11/16/2024 Home Care Visit [facility] [address] [place] [phone] Becca Saenz, KIRIT [address] [place] [address] [email or web address] NON ADMIT HOME HEALTH VISIT Social History Tobacco Use Types Packs/Day Years [...] on filedocumented in this encounter Care Teams Supervisor Glycerin Relationship Specialty Start Date End Date Genevieve Gtz MD [address] [place] [address] PCP - General Internal Medicine 11/06/24 documented as of this encounter Additional Source Comments The information contained in this document represents components of the legal health record. It is not the complete legal health record.[facility]
--- OUTSIDE RECORDS SUMMARY | 2024-11-19 18:13 | XMS_ITS | Encounter Summary ---
Author Organization [facility] Address [address] [place] [phone] Phone Care Team Providers Care Brush Operator Name Role Phone EmilyAlyssa uhtchinson Primary Care Provider Unava ilable Encounter Details Date Type Department Care Team (Late st Contact Info) Description 09/23/2024 TCM in Dialysis Clinic [facility] [address] [phone] Placido Carver MD [address] [address] Social History Tobacco Use Types [...] 09/23/2024 The patient was seen for a gpai-he-tmcw visit as part of Transitional Care Management services. Attending Historic Sites Registrar: PLACIDO CARVER MD Dialysis Location: [facility] Schedule: Shift: 2 INTERACTIVE CONTACT [...] with the patient. VISIT DIAGNOSES CPT Code 02415 - High complexity, seen within 7 days of discharge. N18.6 End stage renal disease Signed by: PLACIDO CARVER MD on 09/23/2024 at 10:14:56 PM Transcribed by: PLACIDO CRAVER MD on 09/23/2024 at 10:14:56 PM documented in this encounter Plan of Treatment Not on file documented as of this encounter Visit Diagnoses Not on filedocumented in this encounter Care Teams Brush Operator Relationship Specialty Start Date End Date Alyssa Manzano DO [address] [place] [address] PCP - General Family Medicine 03/02/21 documented as of this encounter
== END 2024-11-19 18:09 | disposition home or self-care (01) ==
LOC: HO.HHCLNP 18:08
PROVIDERS: Visit Provider Student in an Organized Health Care Education/Training Program
DX: Z02.83 Encounter for blood-alcohol and blood-drug test (principal); Z79.891 Long term (current) use of opiate analgesic
CPT/HCPCS: 36415; 80307

== ENCOUNTER 2024-11-24 12:03 | Outpatient (AMB) | payer OTHER, SELFPAY ==
--- OUTSIDE RECORDS SUMMARY | 2024-11-19 15:15 | XMS_ITS | Encounter Summary ---
Author Organization [employer] Address [address] [place] [address] Care Team Providers Care Manager Net Name Role Phone Genevieve Gtz MD Primary Care Pro vider Reason for Visit * Reason Comments COMBER SETTER Encounter Details Date Type Department Care Team (Latest Contact Info) Description 11/19/2024 3:15 PM EDT Clinical Support [facility] MED & PEDS [address] [place] [address] Khushi Frederick RN [address] [place], [place] [phone] Long-term current use of opiate analgesic (Primary Dx) Social History Tobacco Use Types Packs/Day Years [...] AM EDT documented as of this encounter Progress Notes * Khusih Frederick RN - 11/19/2024 3:15 PM EDT SUBJECTIVE: Shereen Taylor is a 34 y.o. year old female who presents for COMBER SETTER Preferred language for medical information: Yoruba Interpreted needed: No Shereen Taylor does report adherence to Oxycodone 5 mg, take 1 tablet every 8 hours PRN, last refilled 11/15/24. The patient last took Oxycodone on: 11/19/24 Medication is: 100% % effective at alleviating pain. OBJECTIVE: RESUME SPECIALIST checked: 11/19/2024 Pill count completed for Oxycodone , count today is 8 , anticipated count should be 7, this is as expected. Last PCP visit: 01/02/24 BPI completed on: 04/30/24 , pain severity score: 5, activity interference score: 9 Controlled substance agreement signed: Controlled Substance Agreement 04/30/2024 COMBER SETTER Tier: 2 Current Medications[1] Smoking status: Denies ETOH use: Denies Illicit substances: Denies Marijuana use: No , No results found for: POCTHC , POCCOCAINEUR , POCOPIATEUR , DOAUR , POCAMPHETAMI , POCBENZODIUR , POCBARBSCRN , POCMETHADOUR , POCBUPSCRN , POCTCAUR , POCMDMAUR , POCOXYCODONE , POCPHENCYCUR , PROPOXUR , FENTANYLURIN ASSESSMENT: COMBER SETTER Agreement Initiation: Opioid dependence related to chronic pain. PLAN: Information on pain group given: Previously discussed Information on acupuncture given: Previously discussed Narcan education provided: Previously discussed Narcan prescription: active Shereen Taylor will continue taking medication as prescribed and follow up at the next COMBER SETTER visitor sooner if needed. Shereen Taylor has verbalized understanding of care plan. Future Appointments Date Time Provider Department Center 11/26/2024 10:15 AM Genevieve Casillas MD MEDICINE [facility] Khushi Frederick RN [1] Current Outpatient Medications: acetaminophen (Tylenol) 325 MG tablet, TAKE 2 TABLETS BY MOUTH EVERY 4 HOURS IF NEEDED FOR MILD PAIN, Disp: 120 tablet, Rfl: 2 albuterol 108 (90 Base) MCG/ACT inhaler, INHALE 2 PUFFS BY MOUTH EVERY 6 HOURS NEEDED FOR WHEEZING, Disp: 18 g, Rfl: 1 Blood Pressure kit, 1 Device Once per day., Disp: 1 kit, Rfl: 0 carvedilol (Coreg) 12.5 MG tablet, TAKE 1 TABLET BY MOUTH TWICE A DAY, Disp: 180 tablet, Rfl: 0 Glutose 45 40 % gel oral gel, PLEASE SEE ATTACHED FOR DETAILED DIRECTIONS, Disp: , Rfl: hydrALAZINE (Apresoline) 50 MG tablet, Take 1 tablet (50 mg) by mouth 3 times daily., Disp: 270 tablet, Rfl: 0 lidocaine (Lidoderm) 5 % patch, APPLY 1 PATCH TOPICALLY DAILY LEAVE ON MOST PAINFUL AREA FOR UP TO 12 HOURS, Disp: 30 patch, Rfl: 2 naloxone (Narcan) 4 mg/0.1 mL nasal spray, Administer 1 spray (4 mg) into affected nostril(s) if needed for opioid reversal. May repeat every 2-3 minutes if needed, alternating nostrils, until medical assistance becomes available., Disp: 2 each, Rfl: 3 nitroglycerin (Nitrostat) 0.4 MG SL tablet, PLACE 1 TABLET UNDER THE TONGUE EVERY 5 MINUTES NEEDED FOR CHEST PAIN, Disp: 90 tablet, Rfl: 0 documented in this encounter Miscellaneous Notes * Addendum Note - Khushi Frederick RN - 11/19/2024 3:15 PM EDTAddended by: KHUSHI FREDERICK on: 11/19/2024 03:47 PM Modules accepted: Orders documented in this encounter Plan of Treatment Upcoming Encounters Date Type Department Care Team (Late st Contact Info) Description 11/26/2024 10:15 AM EDT Office Visit [facility] MEDICINE [address] [place] [address] Genevieve Gtz MD [address] [place] [address] 12/01/2024 2:30 PM EDT Telemedicine [facility] MED & PEDS [address] [place] [address] Khushi Frederick RN [address] [place] [address] 02/11/2025 2:45 PM EST Clinical Support [facility] MED & PEDS [address] [place] [address] Khushi Frederick RN [address] [place] [address] Scheduled Orders Name Type Priority Associated Diagnoses Orde r Schedule Drug Toxicology Monitoring Base Panel, w/Confirmation, Oral Fluid Lab Routine Long-term current use of opiate analgesic Ordered: 11/19/2024 documented as of this encounter Goals Goal Patient Goal Type Associated Problems Recent Progress Patient-Stated? Author Blood Pressure < 140/90 Blood Pressure 129/75(2024 9:08 AM EST) No Jaime Chilel Hemoglobin A1c < 8 Result Component 5.7( 9:45 AM EST) No Jaime Chilel documented as of this encounter Visit Diagnoses Diagnosis Long-term current use of opiate analgesic- Primary Encounter for long-term (current) use of other medications documented in this encounter Additional Health Concerns Assessment Noted Time PHQ-9 Depression Total Score: 0 10/23/19 2:23 PM EDT documented as of this encounter Care Teams Manager Net Relationship Specialty Start Date End Date Genevieve Gtz MD [address] [place] [address] PCP - General Internal Medicine 10/12/22 documented as of this encounter
--- NOTE | 2024-11-24 12:09 | MHC.OFFVIS ---
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 Her brain imaging suggested demylinating disease and she was treated with a course of solumedrol. [facility] Medical History Multiple sclerosis Cerebral infarction Hyperkalemia ESRD on dialysis Hypoxia End stage renal disease on dialysis Chronic ulcer of right foot due to diabetes mellitus Chronic ulcer of left foot due to diabetes mellitus DM foot ulcer ESRD on hemodialysis Hypotonic neurogenic bladder Diabetic polyneuropathy Hypertensive emergency Decompensated heart failure Renal failure Hypertension, uncontrolled Medical non-compliance Pericarditis Unspecified hypertension, condition or complication Metabolic acidosis Gastroparesis End stage chronic kidney disease Chronic kidney disease Anemia Plantar ulcer of left foot MDD (major depressive disorder) CKD (chronic kidney disease) Hypertension Vomiting Chronic pain Non-compliance with renal dialysis End-stage renal disease (ESRD) Diabetic foot ulcer associated with type 2 diabetes mellitus Cardiomyopathy HFrEF (heart failure with reduced ejection fraction) delivery delivered Anemia in chronic kidney disease (CKD) CKD (chronic kidney disease) Abnormal finding on echocardiogram Elevated troponin Acute worsening of stage 3 chronic kidney disease Generalized edema Sepsis Cellulitis Pleural effusion Atypical chest pain Bone infection PAD (peripheral artery disease) Cellulitis and abscess of foot Osteomyelitis Asthma Depression with anxiety Diabetic retinopathy Blind right eye Diabetes Back pain Surgical History Tubal ligation status Previous section Hx laparoscopic cholecystectomy Hx of surgical procedure (~09/11/23) 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 Family History Mother Coronary artery disease Myocardial infarction Stroke Diabetes mellitus Father Myocardial infarction Social History Household Members: Family and Children Household Members Other:: sister, brother, oineizp-xr-fgu Housing: Apartment Housing Other:: Apartment, 1st floor Are you a primary direct care specialist to a significant other at home: No Do you presently have visiting nurse or other home services: No Alcohol intake: never Comment: Intermittently refuses Patient Tobacco Use Status: Never used Tobacco e-Cigarette/Vaping Use: Never Used Second Hand Smoke Exposure: No Advance Directives Date on File: 08/28/23 service: No Current occupational status: unemployed and disabled Gender identity: Female Female Reproductive History Menstrual Age of Menarche: 8 Review of Systems Const Details: - Neurological: Reports improvement in strength following steroid treatment. - Ophthalmologic: Reports seeing only shadows. - Genitourinary: Denies current alcohol use, reports fluctuating electrolytes associated with renal disease. - Hematologic: Reports anemia. Physical Exam Neuro Other: Mental Status: Alert and oriented to person, place, and time. Normal attention. Normal spontaneous speech, fluency, and comprehension. Cranial Nerves: Vision is quite poor and she only sees shadows. Opacities are noted on cornea. There was mild left-sided facial flatness. Extraocular muscles were intact. Motor: Deep tendon reflexes are absent. Coordination: Oypewy-pb-cuot is okay. She is in the wheelchair. Extrapyramidal: Full facial expressions and blinking. No rigidity. Movements are appropriate with no tremor or abnormality. Speech: Normal; no dysarthria or tremor. Assessment & Plan Assessment & Plan (1) Multiple sclerosis: Comment: MRI brain WO at [facility] in 2024: CPM vs MVD in [place], mild to mod MVD vs demylinating disease on FLAIR LP at [facility] in 2024: WBCs 2, RBCs 3, Glu 243, Pro 54, OCBs neg. Code(s): G35 - Multiple sclerosis Category: Medical (2) Central pontine myelinolysis: Code(s): G37.2 - Central pontine myelinolysis Category: Medical (3) Cerebral microvascular disease: Code(s): I67.89 - Other cerebrovascular disease Category: Medical Plan Impression & Recommendations: 1. Multiple sclerosis. This diagnosis came about because of mild radiological features on her brain MRI in her presentation while she came to emergency room. She was treated with steroids and improved. We could still use Solu-Medrol on as needed basis. Regular use of immunomodulating agents at this time is avoided because of or significant underlying hematological and renal issues. 2. Cerebral microvascular disease likely related to diabetes and renal disease. Management of those conditions can help to avoid further problems 3. Central pontine myelinolysis: This is a radiological diagnosis. This type of radiological picture can appear with binge alcohol drinking, severe hyponatremia, or any other type of severe electrolyte abnormality. Not drinking alcohol and taking care of her renal disease and health would help alleviate any similar problem. Otherwise no further action is noted on this. This could result in difficulty walking and with her balance. Coding Level of Care Code Est Pt Level 5 (88246) Diagnoses Multiple sclerosis G35 Central pontine myelinolysis G37.2 Cerebral microvascular disease I67.89
--- OUTSIDE RECORDS SUMMARY | 2024-11-24 13:25 | XMS_ITS | Encounter Summary ---
Author Organization [employer] Address [address] [facility] 7t [place] [address] Care Team Providers Care Engineering Surveyor Name Role Phone Genevieve Gtz MD Primary Care Pro vider Reason for Visit * Reason Onset Date Comments Med Refill 10/23/2024 Encounter Details Date Type Department Care Team ([facility] Contact Info) Description 10/23/2024 Telephone [facility] MEDICINE [address] [place] [address] Genevieve Gtz MD [address] [place], [place] [phone] Med Refill Social History Tobacco Use Types [...] from pt retuning call Contact pt at [phone] * Telephone Encounter - Paola Thurston RN - 10/23/2024 10:24 AM EDT Pt requesting refill of Oxycodone 5mg. No show to DIRECTOR CLINICAL INFORMATION SERVICES appt 08/06/24. Multiple TC to pt to r/s, no answer, no c/b. Also no showed to appt with you 09/26/24. Please advise. * Telephone Encounter - Colten Mullen - 10/23/2024 10:07 AM EDT TC from pt requesting medication refill. Medications needing refill : oxyCODONE (Roxicodone) 5 MG immediate release tablet [id number] documented in this encounter Plan of Treatment Upcoming Encounters Date Type Department Care Team (Late st Contact Info) Description 11/26/2024 10:15 AM EDT Office Visit [facility] MEDICINE [address] [place] [address] Genevieve Gtz MD [address] [place] [address] 12/01/2024 2:30 PM EDT Telemedicine [facility] [address] [place] [address] Paola Thurston RN [address] [place] [address] 02/11/2025 2:45 PM EST Clinical Support [facility] [address] [place] [address] Paola Thurston RN [address] [place] [address] documented as of this encounter Goals Goal [...] documented as of this encounter Care Teams Engineering Surveyor Relationship Specialty Start Date End Date Genevieve Gtz MD [address] [place] [address] PCP - General Internal Medicine 10/12/22 documented as of this encounter
--- OUTSIDE RECORDS SUMMARY | 2024-11-24 13:25 | XMS_ITS | Encounter Summary ---
Author Organization [employer] Address [address] [facility] 7t [place] [address] Care Team Providers Care Circulation Sales Representative Name Role Phone Genevieve Gtz MD [...] 10:15 AM EDT Office Visit [facility] MEDICINE [address] [place] [address] Genevieve Gtz MD [address] [place] [address] 12/01/2024 2:30 PM EDT Telemedicine [facility] MED & PEDS [address] [place] [address] Paola Thurston RN [address] [place] [address] 02/11/2025 2:45 PM EST Clinical Support [facility] PEDS [address] [place] [address] Paola Thurston RN [address] [place] [address] documented as of this encounter Goals Goal [...] documented as of this encounter Care Teams Circulation Sales Representative Relationship Specialty Start Date End Date Genevieve Gtz MD [address] [place] [address] PCP - General Internal Medicine 10/12/22 documented as of this encounter
--- OUTSIDE RECORDS SUMMARY | 2024-11-24 13:25 | XMS_ITS | Encounter Summary ---
Author Organization [employer] Address [address] [facility] 7t [place] [address] Care Team Providers Care Mill Hand Plate Mill Name Role Phone Genevieve Gtz MD Primary Care Pro vider Reason for Visit * Reason Onset Date Comments Call Back Request 06/15/2023 Encounter Details Date Type Department Care Team ([facility] Contact Info) Description 06/15/2023 Telephone [facility] MEDICINE [address] [place], [place] [phone] Genevieve Gtz MD [address] [place], [place] [phone] Call Back Request Social History Tobacco Use [...] pt requesting a call back in regards ELECTRICAL ENGINEERING TEACHER medication. documented in this encounter Plan of Treatment Upcoming Encounters Date Type Department Care Team ([facility] st Contact Info) Description 11/26/2024 10:15 AM EDT Office Visit [facility] MEDICINE [address] [place] [address] Genevieve Gtz MD [address] [place] [address] 12/01/2024 2:30 PM EDT Telemedicine [facility] [address] [place] [address] Paola Thurston RN [address] [place], [place] [phone] 02/11/2025 2:45 PM EST Clinical Support [facility] [address] [place] [address] Paola Thurston RN [address] [place], [place] [phone] documented as of this encounter Goals Goal [...] documented as of this encounter Care Teams Mill Hand Plate Mill Relationship Specialty Start Date End Date Genevieve Gtz MD [address] [place] [address] PCP - General Internal Medicine 10/12/22 documented as of this encounter
--- OUTSIDE RECORDS SUMMARY | 2024-11-24 13:25 | XMS_ITS | Encounter Summary ---
Author Organization [employer] Address [address] [facility] 7t [place] [address] Care Team Providers Care Human Service Coordinator Name Role Phone Genevieve Gtz MD Primary Care Pro vider Encounter Details Date Type Department Care Team ([facility] st Contact Info) Description 11/19/2024 Telephone [facility] [address] [place], [place] [phone] Paola Thurston, RN [address] [place] [address] Social History Tobacco Use Types Packs/Day Years [...] t he electric, gas, oil or water [employer] threatened to shut off services in your [...] PM EDT Pt did come in to SHIP WASHER visit today. Unable to urinate, mouth swab sent to the lab. F/u with you 11/26/24. What SHIP WASHER Tier would you like this patient to be? I recommend Tier X, please let me know if you agree or would rather patient be in another SHIP WASHER Tier. Are you ok with SHIP WASHER Televisit? Tier 1 = HIGH RISK, Monthly SHIP WASHER visits Tier 2 = MODerate RISK, Q3 Month visits Tier 3 = LOW RISK = Q4-6 month visits documented in this encounter Plan of Treatment Upcoming Encounters Date Type Department Care Team ([facility] st Contact Info) Description 11/26/2024 10:15 AM EDT Office Visit [facility] MEDICINE [address] [place] [address] Genevieve Gtz MD [address] [place] [address] 12/01/2024 2:30 PM EDT Telemedicine [facility] MED & PEDS [address] [place] [address] Paola Thurston RN [address] [place] [address] 02/11/2025 2:45 PM EST Clinical Support [facility] MED & PEDS [address] [place] [address] Paola Thurston, KIRIT [address] [place] [address] documented as of this encounter Goals Goal [...] documented as of this encounter Care Teams Human Service Coordinator Relationship Specialty Start Date End Date Genevieve Gtz MD [address] [place] [address] PCP - General Internal Medicine 10/12/22 documented as of this encounter
--- OUTSIDE RECORDS SUMMARY | 2024-11-24 13:25 | XMS_ITS | Encounter Summary ---
Author Organization [employer] Address [address] [facility] 7t [place] [address] Care Team Providers Care Inspector Motor Vehicles Name Role Phone Genevieve Gtz MD Primary Care Pro vider Reason for Visit * Reason Onset Date Comments Medication Question 11/11/2024 Encounter Details Date Type Department Care Team ([facility] Contact Info) Description 11/11/[address] [facility] MEDICINE [address] [place], [place] [phone] Genevieve Gtz MD [address] [place], [place] [phone] Medication Question Social History Tobacco Use Types [...] MG immediate release tablet Contact pt at [phone] documented in this encounter Plan of Treatment Upcoming Encounters Date Type Department Care Team (Late st Contact Info) Description 11/26/2024 10:15 AM EDT Office Visit [facility] MEDICINE [address] [place] [address] Genevieve Gtz MD [address] [place] [address] 12/01/2024 2:30 PM EDT Telemedicine [facility] [address] [place] [address] Paola Thurston RN [address] [place] [address] 02/11/2025 2:45 PM EST Clinical Support [facility] [address] [place] [address] Paola Thurston RN [address] [place] [address] documented as of this encounter Goals Goal Patient Goal Type Associated Problems Recent Progress Patient-Stated? Author Blood Pressure < 140/90 Blood Pressure 129/75(2024 9:08 AM EST) No Jaime Chilel Hemoglobin A1c < 8 Result Component 5.7( 9:45 AM EST) No Jaime Chilel documented as of this encounter Visit Diagnoses Diagnosis Chronic ulcer of left foot due to diabetes mellitus (HCC)- Primary documented in this encounter Additional Health Concerns Assessment Noted Time PHQ-9 Depression Total Score: 0 10/23/19 24 2:23 PM EDT documented as of this encounter Care Teams Inspector Motor Vehicles Relationship Specialty Start Date End Date Genevieve Gtz MD [address] [place] [address] PCP - General Internal Medicine 10/12/22 documented as of this encounter
--- OUTSIDE RECORDS SUMMARY | 2024-11-24 13:25 | XMS_ITS | Encounter Summary ---
Author Organization [employer] Address [address] [facility] 7t [place] [address] Care Team Providers Care Manager Beverage Name Role Phone Genevieve Gtz MD Primary Care Pro vider Reason for Visit * Reason Onset Date Comments Med Refill 01/08/2023 Encounter Details Date Type Department Care Team ([facility] Contact Info) Description 01/08/2023 Telephone [facility] MEDICINE [address] [place], [place] [phone] Genevieve Gtz MD [address] [place], [place] [phone] Med Refill Social History Tobacco Use Types [...] Description 11/26/2024 10:15 AM EDT Office Visit [facility] MEDICINE [address] [place] [address] Genevieve Gtz MD [address] [place] [address] 12/01/2024 2:30 PM EDT Telemedicine [facility] [address] [place] [address] Paola Thurston RN [address] [place] [address] 02/11/2025 2:45 PM EST Clinical Support [facility] [address] [place] [address] Paola Thurston RN [address] [place] [address] documented as of this encounter Visit Diagnoses Not on filedocumented in this encounter Additional Health Concerns Assessment Noted Time PHQ-9 Depression Total Score: 0 10/13/19 23 2:37 PM EDT documented as of this encounter Care Teams Manager Beverage Relationship Specialty Start Date End Date Genevieve Gtz MD [address] [place] [address] PCP - General Internal Medicine 10/12/22 documented as of this encounter
--- OUTSIDE RECORDS SUMMARY | 2024-11-24 13:25 | XMS_ITS | Encounter Summary ---
Author Organization [employer] Address [address] [facility] 7t [place] [address] Care Team Providers Care Digital Marketer Name Role Phone Genevieve Gtz MD Primary Care Pro vider Reason for Visit * Reason Onset Date Comments Med Refill 11/21/2024 Encounter Details Date Type Department Care Team ([facility] Contact Info) Description 11/21/2024 Refill [facility] [address] [place] [address] Paola Thurston, KIRIT [address] [place] [address] Chronic ulcer of left foot due to diabetes mellitus ([facility]) Social History Tobacco Use Types Packs/Day Years [...] encounter Miscellaneous Notes * Telephone Encounter - Anuradha Carmona RN - 11/21/2024 4:22 PM EDT Called [facility], spoke with Melisa who confirmed script received and they are processing it. * Telephone Encounter - Anuradha Carmona RN - 11/21/2024 3:14 PM EDT Called [facility], spoke with Melisa who states that their system was down earlier and they did not received oxycodone script sent today at 1:15pm. Will notify provider. * Telephone Encounter - Giuseppe Cadena - 11/21/2024 2:54 PM EDT Tc from pt reporting that the medication has not been sent to the pharmacy. Outgoing call to pharmacy requesting status on medication. Pharmacy stated that their system has been down all morning so if it was sent at that time period it would need to be sent again. documented in this encounter Plan of Treatment Upcoming Encounters Date Type Department Care Team ([facility] st Contact Info) Description 11/26/2024 10:15 AM EDT Office Visit [facility] MEDICINE [address] [place] [address] Genevieve Gtz MD [address] [place] [address] 12/01/2024 2:30 PM EDT Telemedicine [facility] MED & PEDS [address] [place] [address] Paola Thurston RN [address] [place], [place] 02/11/2025 2:45 PM EST Clinical Support [facility] MED [facility] PEDS [address] [place] [address] Paola Thurston RN [address] [place], [place] documented as of this encounter Goals Goal Patient Goal Type Associated Problems Recent Progress Patient-Stated? Author Blood Pressure < 140/90 Blood Pressure 129/75(2024 9:08 AM EST) No Jaime Chilel Hemoglobin A1c < 8 Result Component 5.7( 9:45 AM EST) No Jaime Chilel documented as of this encounter Visit Diagnoses Diagnosis Chronic ulcer of left foot due to diabetes mellitus (HCC) documented in this encounter Additional Health Concerns Assessment Noted Time PHQ-9 Depression Total Score: 0 10/23/19 24 2:23 PM EDT documented as of this encounter Care Teams Digital Marketer Relationship Specialty Start Date End Date Genevieve Gtz MD [address] [place] [address] PCP - General Internal Medicine 10/12/22 documented as of this encounter
--- OUTSIDE RECORDS SUMMARY | 2024-11-24 13:25 | XMS_ITS | Encounter Summary ---
Author Organization [employer] Address [address] [facility] 7t [place] [address] Care Team Providers Care Floriculture Teacher Name Role Phone Genevieve Gtz MD Primary Care Pro vider Reason for Visit * Reason Onset Date Comments Med Refill 06/21/2023 Encounter Details Date Type Department Care Team ([facility] Contact Info) Description 06/21/2023 Telephone [facility] MEDICINE [address] [place], [place] [phone] Genevieve Gtz MD 230 [place], [place] [phone] Med Refill Social History Tobacco Use Types [...] immediate release tablet To be sent to: [facility]/pharmacy #[id number] [place], [place] - [address] [place] [address] documented in this encounter Plan of Treatment Upcoming Encounters Date Type Department Care Team (Late st Contact Info) Description 11/26/2024 10:15 AM EDT Office Visit [facility] MEDICINE [address] [place] [address] Genevieve Gtz MD [address] [place] [address] 12/01/2024 2:30 PM EDT Telemedicine [facility] MED [facility] PEDS [address] [place] [address] Paola Thurston RN [address] [place] [address] 02/11/2025 2:45 PM EST Clinical Support [facility] [address] [place] [address] Paola Thurston RN [address] [place] [address] documented as of this encounter Goals Goal [...] documented as of this encounter Care Teams Floriculture Teacher Relationship Specialty Start Date End Date Genevieve Gtz MD [address] [place] [address] PCP - General Internal Medicine 10/12/22 documented as of this encounter
--- OUTSIDE RECORDS SUMMARY | 2024-11-24 13:25 | XMS_ITS | Encounter Summary ---
Author Organization [employer] Address [address] [facility] 7t [place] [address] Care Team Providers Care Yard Caller Name Role Phone Genevieve Gtz MD Primary Care Pro vider Reason for Visit * Reason Comments Med Refill Encounter Details Date Type Department Care Team (Late st Contact Info) Description 08/26/2023 Refill [facility] MED & PEDS [address] [place], [place] [phone] Genevieve Gtz MD 230 [place], [place] [phone] Benign essential hypertension Social History Tobacco Use [...] Description 11/26/2024 10:15 AM EDT Office Visit [facility] [address] [place] [address] Genevieve Gtz MD [address] [place] [address] [phone] 12/01/2024 2:30 PM EDT Telemedicine [facility] MED & PEDS 505 [place] [address] Paola Thurston RN 505 [place] [address] 02/11/2025 2:45 PM EST Clinical Support [facility] [address] [place], [place] [phone] Paola Thurston RN 505 [place] [address] documented as of this encounter Goals Goal [...] documented as of this encounter Care Teams Yard Caller Relationship Specialty Start Date End Date Genevieve Gtz MD [address] [place] [address] [phone] PCP - General Internal Medicine 10/12/22 documented as of this encounter
--- OUTSIDE RECORDS SUMMARY | 2024-11-24 13:25 | XMS_ITS | Encounter Summary ---
Author Organization [employer] Address 75 [facility] 7t [place] [address] Care Team Providers Care Pediatric Dental Assistant Name Role Phone Carolina Hsu COMPONENT DESIGN ENGINEER Primary Care Provider Genevieve Wilson MD Primary Care Pro vider Reason for Visit * Reason Onset Date Comments Appointment Request 03/30/2022 Encounter Details Date Type Department Care Team ([facility] st Contact Info) Description 03/30/2022 Telephone [facility] [address] [place] [address] [phone] Carolina Hsu FNP Appointment Request Social History [...] EST TC to pt, NCNS for todays PROGRAM SERVICES ASSISTANT Renewal appt. Pt stated she is currently admitted to [facility], she statedshe has fluid in her lungs and she's a mess. Wished patient well and told her I would forward this information to her PCP. Requested she call back to reschedule PROGRAM SERVICES ASSISTANT appt when she's feeling better. * Telephone Encounter - Stephen Davison - 03/30/2022 10:41 AM EST documented in this encounter Plan of Treatment Upcoming Encounters Date Type Department Care Team (Late st Contact Info) Description 11/26/2024 10:15 AM EDT Office Visit [facility] 230 [place] [address] Genevieve Gtz MD 230 [place] [address] 12/01/2024 2:30 PM EDT Telemedicine [facility] MED & PEDS 505 [place] [address] Paola Thurston RN 505 [place], [place] [phone] 02/11/2025 2:45 PM EST Clinical Support [facility] MED & PEDS 505 [place] [address] Paola Thurston RN 505 [place], [place] [phone] documented as of this encounter Visit Diagnoses Not on filedocumented in this encounter Care Teams Pediatric Dental Assistant Relationship Specialty Start Date End Date Carolina Hsu FNP PCP - General Family Medicine 01/16/22 10/11/22 Genevieve Gtz MD [address] [place] [address] PCP - General Internal Medicine 10/12/22 documented as of this encounter
--- OUTSIDE RECORDS SUMMARY | 2024-11-24 13:25 | XMS_ITS | Encounter Summary ---
Author Organization [employer] Address 75 [facility] 7t [place] [address] Care Team Providers Care Conduit Reamer Operator Name Role Phone Genevieve Gtz MD Primary Care Pro vider Encounter Details Date Type Department Care Team (Late st Contact Info) Description 11/21/2024 Orders Only [facility] MED[facility]INE 230 [place], [place] [phone] Genevieve Gtz MD 230 [place], [place] [phone] Chronic ulcer of left foot due to diabetes mellitus (CMS/HCC) Social History Tobacco Use Types Packs/Day Years [...] 11/26/2024 10:15 AM EDT Office Visit [facility] [address] [place] [address] Genevieve Gtz MD [address] [place] [address] 12/01/2024 2:30 PM EDT Telemedicine [facility] MED & PEDS 505 [place] [address] Paola Thurston RN 505 [place] [address] 02/11/2025 2:45 PM EST Clinical Support [facility] MED & PEDS 505 [place] [address] Paola Thurston RN 505 [place] [address] documented as of this encounter Goals Goal [...] documented as of this encounter Care Teams Conduit Reamer Operator Relationship Specialty Start Date End Date Genevieve Gtz MD [address] [place] [address] PCP - General Internal Medicine 10/12/22 documented as of this encounter
--- OUTSIDE RECORDS SUMMARY | 2024-11-24 13:25 | XMS_ITS | Encounter Summary ---
Author Organization [employer] Address 75 [facility] 7t [place] [address] Care Team Providers Care Card Grinder Name Role Phone Genevieve Gtz MD Primary Care Pro vider Reason for Visit * Reason Onset Date Comments Med Refill 11/21/2024 Encounter Details Date Type Department Care Team ([facility] Contact Info) Description 11/21/2024 Telephone [facility]INE 230 [place] [address] Genevieve Gtz MD 230 [place], [place] [phone] Med Refill Social History Tobacco Use Types [...] * Telephone Encounter - Francie Smith - 11/21/2024 11:59 AM EDT TC from pt requesting medication refill. Medications needing refill : - oxyCODONE (Roxicodone) 5 MG immediate release tablet To be sent to: - [facility]/pharmacy #[id number] documented in this encounter Plan of Treatment Upcoming Encounters Date Type Department Care Team ([facility] st Contact Info) Description 11/26/2024 10:15 AM EDT Office Visit [facility] MED[facility]INE [address] [place] [address] Genevieve Gtz MD 230 [place] [address] 12/01/2024 2:30 PM EDT Telemedicine [facility] MED & PEDS 505 [place] [address] Paola Thurston RN 505 [place] [address] 02/11/2025 2:45 PM EST Clinical Support [facility] MED & PEDS 505 [place] [address] Paola Thurston RN 505 [place] [address] documented as of this encounter Goals Goal [...] documented as of this encounter Care Teams Card Grinder Relationship Specialty Start Date End Date Genevieve Gtz MD [address] [place] [address] PCP - General Internal Medicine 10/12/22 documented as of this encounter
--- OUTSIDE RECORDS SUMMARY | 2024-11-24 13:25 | XMS_ITS | Encounter Summary ---
Author Organization [employer] Address 75 [facility] 7t [place] [address] Care Team Providers Care Administrator Name Role Phone Genevieve Gtz MD Primary Care Pro vider Reason for Visit * Reason Onset Date Comments Hospital Follow-up 03/04/2024 Encounter Details Date Type Department Care Team ([facility] Contact Info) Description 03/04/2024 Telephone [facility] 230 [place], [place] [phone] Genevieve Gtz MD 230 [place] [address] Hospital Follow-up Social History Tobacco Use Types [...] from pt requesting a HDF appt. [place] [facility] [place] of admission: 02/21/2024 Discharge date: 02/01/2025 Diagnosed: Oxygen , Infection Dialysis tube *Send message to [place] Clinical Care Coordinators documented in this encounter Plan of Treatment Upcoming Encounters Date Type Department Care Team ([facility] st Contact Info) Description 11/26/2024 10:15 AM EDT Office Visit [facility]INE [address] [place] [address] Genevieve Gtz MD [address] [place] [address] 12/01/2024 2:30 PM EDT Telemedicine [facility] MED & PEDS 505 [place] [address] Paola Thurston RN 505 [place] [address] 02/11/2025 2:45 PM EST Clinical Support [facility] MED [facility]EDS 505 [place] [address] Paola Thurston RN 505 [place] [address] documented as of this encounter Goals Goal [...] documented as of this encounter Care Teams Administrator Relationship Specialty Start Date End Date Genevieve Gtz MD [address] [place] [address] PCP - General Internal Medicine 10/12/22 documented as of this encounter
--- OUTSIDE RECORDS SUMMARY | 2024-11-24 13:25 | XMS_ITS | Encounter Summary ---
Author Organization [employer] Address 75 [facility] 7t [place] [address] Care Team Providers Care Prosthetics Assistant Name Role Phone Genevieve Gtz MD Primary Care Pro vider Encounter Details Date Type Department Care Team ([facility] st Contact Info) Description 11/20/2024 Telephone [facility] 505 [place], [place] [phone] Paola Thurston, RN 505 [place] [address] Social History Tobacco Use Types Packs/Day Years [...] t he electric, gas, oil or water PROSimity threatened to shut off services in your [...] Telephone Encounter - Paola Thurston RN - 11/20/2024 12:50 PM EDT TC to pt, no answer. LITHOGRAPHIC PRESS OPERATOR APPRENTICE Tele scheduled 12/01/24 @ 2:30pm. Lvm for pt to c/b if this date/ time doesnot work for her. documented in this encounter Plan of Treatment Upcoming Encounters Date Type Department Care Team (Late st Contact Info) Description 11/26/2024 10:15 AM EDT Office Visit [facility] [address] [place] [address] Genevieve Gtz MD 230 [place] [address] 12/01/2024 2:30 PM EDT Telemedicine [facility] MED & PEDS [address] [place] [address] Paola Thurston RN 505 [place] [address] 02/11/2025 2:45 PM EST Clinical Support [facility] MED & PEDS [address] [place] [address] Paola Thurston RN 505 [place] [address] documented as of this encounter Goals Goal [...] documented as of this encounter Care Teams Prosthetics Assistant Relationship Specialty Start Date End Date Genevieve Gtz MD [address] [place] [address] PCP - General Internal Medicine 10/12/22 documented as of this encounter
--- OUTSIDE RECORDS SUMMARY | 2024-11-24 13:25 | XMS_ITS | Encounter Summary ---
Author Organization [employer] Address [address] [place] [address] 7t [place] [address] Care Team Providers Care Furniture Upholsterer Apprentice Name Role Phone Genevieve Gtz MD Primary Care Pro vider Reason for Visit * Reason Onset Date Comments Med Refill 11/27/2022 Encounter Details Date Type Department Care Team ([facility] st Contact Info) Description 11/27/2022 Telephone [facility] MED[facility]INE 230 [place], [place] [phone] Genevieve Gtz MD 230 [place], [place] [phone] Med Refill Social History Tobacco Use Types [...] medication oxycodone 5 mg. Please send to [facility]/pharmacy #[id number] - [place] - [address] Cool documented in this encounter Plan of Treatment Upcoming Encounters Date Type Department Care Team (Late st Contact Info) Description 11/26/2024 10:15 AM EDT Office Visit [facility] 230 [place] [address] Genevieve Gtz MD 230 [place] [address] 12/01/2024 2:30 PM EDT Telemedicine [facility] MED & PEDS 505 [place] [address] Paola Thurston RN 505 [place] [address] 02/11/2025 2:45 PM EST Clinical Support [facility] MED & PEDS 505 [place] [address] Paola Thurston RN 505 [place] [address] documented as of this encounter Visit Diagnoses Not on filedocumented in this encounter Additional Health Concerns Assessment Noted Time PHQ-9 Depression Total Score: 0 10/13/19 2:37 PM EDT documented as of this encounter Care Teams Furniture Upholsterer Apprentice Relationship Specialty Start Date End Date Genevieve Gtz MD [address] [place] [address] PCP - General Internal Medicine 10/12/22 documented as of this encounter
--- OUTSIDE RECORDS SUMMARY | 2024-11-24 13:25 | XMS_ITS | Encounter Summary ---
Author Organization [employer] Address 75 [facility] 7t [place] [address] Care Team Providers Care Map Editor Name Role Phone Genevieve Gtz MD Primary Care Pro vider Reason for Visit * Reason Onset Date Comments Med Refill 06/20/2024 Encounter Details Date Type Department Care Team ([facility] Contact Info) Description 06/20/2024 Telephone [facility] MEDICINE 230 [place] [address] Genevieve Gtz MD 230 [place], [place] [phone] Med Refill Social History Tobacco Use Types [...] immediate release tablet To be sent to: [facility]/pharmacy #[id number] [place] [address] - [address] [place] [address] documented in this encounter Plan of Treatment Upcoming Encounters Date Type Department Care Team (Late st Contact Info) Description 11/26/2024 10:15 AM EDT Office Visit [facility] MEDICINE [address] [place] [address] Genevieve Gtz MD 230 [place] [address] 12/01/2024 2:30 PM EDT Telemedicine [facility] MED & PEDS 505 [place] [address] Paola Thurston RN 505 [place] [address] 02/11/2025 2:45 PM EST Clinical Support [facility] MED & PEDS 505 [place] [address] Paola Thurston RN 505 [place] [address] documented as of this encounter Goals Goal [...] documented as of this encounter Care Teams Map Editor Relationship Specialty Start Date End Date Genevieve Gtz MD [address] [place] [address] PCP - General Internal Medicine 10/12/22 documented as of this encounter
--- OUTSIDE RECORDS SUMMARY | 2024-11-24 13:25 | XMS_ITS | Encounter Summary ---
Author Organization [employer] Address 75 [facility] 7t [place] [address] Care Team Providers Care Die Technician Name Role Phone Genevieve Gtz MD Primary Care Pro vider Reason for Visit * Reason Comments Med Change Request Encounter Details Date Type Department Care Team ([facility] st Contact Info) Description 03/15/2023 Refill [facility] [address] [place], [place] [phone] Genevieve Gtz MD 230 [place], [place] [phone] Benign essential hypertension Social History Tobacco Use [...] Description 11/26/2024 10:15 AM EDT Office Visit [facility] MEDICINE 230 [place] [address] Genevieve Gtz MD [address] [place] [address] 12/01/2024 2:30 PM EDT Telemedicine [facility] MED & PEDS 505 [place] [address] Paola Thurston RN 505 [place] [address] 02/11/2025 2:45 PM EST Clinical Support [facility] MED & PEDS [address] [place] [address] Paola Thurston RN 505 [place] [address] documented as of this encounter Visit Diagnoses Diagnosis Benign essential hypertension Essential hypertension, benign documented in this encounter Additional Health Concerns Assessment Noted Time PHQ-9 Depression Total Score: 0 10/13/19 23 2:37 PM EDT documented as of this encounter Care Teams Die Technician Relationship Specialty Start Date End Date Genevieve Gtz MD 230 [place] [address] PCP - General Internal Medicine 10/12/22 documented as of this encounter
--- OUTSIDE RECORDS SUMMARY | 2024-11-24 13:26 | XMS_ITS | Clinical Summary ---
Author Organization [facility] Address [address] [place] [address] Care Team Providers Care Joinery Factory Worker Name Role Phone Unavailable Primary Care Provider [...] 0.79 S/CO ratio 01/10/2022 10:39 AM EST [employer] Hepatitis C Antibody Interpretation Nonreactive Nonreactive 01/10/2022 10:39 AM EST [employer] Blood specimen (specimen) (Plasma/Serum) 01/09/2022 8:34 AM EST 01/09/2022 9:21 AM EST us Jaziel B Post MD LAB BLOOD ORDERABLES Final Resu lt HOSPITAL LAB [employer] [address] [place] [address] * HIV 1/2 Ag/Ab CMIA Reflex to Confirmation (01/09/2022 8:34 AM EST) HIV 1/2 Ag/Ab CMIA Nonreactive Nonreactive 01/10/2022 10:39 AM EST [employer] Comment: Results show no evidence of infection [...] BLOOD ORDERABLES Final Resu lt HOSPITAL LAB [facility] [employer] [facility] [address] [place] [address] from Last 3 Months or Most Recently Relevant to Health Maintenance Insurance [facility] Member Subscriber Plan / Payer ( fective 2022-Present) Name:Shereen Taylor Relation to Subscriber:Self Name:Shereen Taylor Payer ID:Not on file Group ID:Not on file Type:Not on file Address: [address] [phone] MISC MGD MEDICARE OUT OF NETWORK Advance Directives * Full Code (Latest Code Status on File) Date Activated Date Inactivated Comments 01/06/2022 5:00 AM Question Answer Comments Decision Thoroughly Discussed with: Unable to Ilda musa
--- OUTSIDE RECORDS SUMMARY | 2024-11-24 13:26 | XMS_ITS | Encounter Summary ---
Author Organization [employer] Address [address] [place] [address] 7t [place] [address] Care Team Providers Care Electrical Prospecting Operator Name Role Phone Carolina Hsu PAN RECLAIM PROCESSOR Primary Care Provider Genevieve Wilson MD Primary Care Pro vider Encounter Details Date Type Department Care Team (Late Contact Info) Description 09/11/2022 Abstract [facility] MEDICINE [address] [place] [address] Carolina Hsu FNP Social History Tobacco Use [...] Upcoming Encounters Date Type Department Care Team ([facility] Contact Info) Description 11/26/2024 10:15 AM EDT Office Visit [facility] MEDICINE [address] [place] [address] Genevieve Gtz MD 230 [place] [address] 12/01/2024 2:30 PM EDT Telemedicine [facility] MED & PEDS 505 [place] [address] Paola Thurston, RN 505 [place] [address] 02/11/2025 2:45 PM EST Clinical Support [facility] MED & PEDS [address] [place] [address] Paola Thurston, RN [address] [place] [address] documented as of this encounter Visit Diagnoses Not on filedocumented in this encounter Care Teams Electrical Prospecting Operator Relationship Specialty Start Date End Date Carolina Hsu FNP PCP - General Family Medicine 01/16/22 10/11/22 Genevieve Gtz MD [address] [place] [address] PCP - General Internal Medicine 10/12/22 documented as of this encounter
--- OUTSIDE RECORDS SUMMARY | 2024-11-24 13:26 | XMS_ITS | Clinical Summary ---
Author Organization [employer] Address [address] [facility] 7t [place] [address] Care Team Providers Care Organization Development Consultant Name Role Phone Genevieve Gtz MD [...] chronic heart failure, unspecified heart failure type (HCC) TAKE 2 TABLETS BY MOUTH EVERY 4 HOURS IF NEEDED FOR MILD PAIN 120 tablet 2 02/28/19 25 Active oxyCODONE (Roxicodone) 5 MG immediate release tabletIndicatio ns:Chronic ulcer of left foot due to diabetes mellitus (HCC) Take 1 tablet (5 mg) by mouth every 8 (eight) hours if needed for severe pain for up to 14 days. 42 tablet 11/22/19 25 2024 Active oxyCODONE (Roxicodone) 5 MG immediate release tabletIndicatio ns:Chronic ulcer of 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 (CMS/HCC) (HCC),Chronic wound Take 1 tablet (5 mg) by mouth every 8 (eight) hours if needed for severe pain for up to 7 days. 21 tablet 10/24/19 25 2024 oxyCODONE (Roxicodone) 5 MG immediate release tabletIndicatio ns:Chronic ulcer of left foot due to diabetes mellitus (HCC) Take 1 tablet (5 mg) by mouth every 8 (eight) hours if needed for severe pain for up to 7 days. 21 tablet 11/12/19 25 2024 Discontinued(R eorder (will not trigger notification to Pharmacy)) oxyCODONE (Roxicodone) 5 MG immediate release tabletIndicatio ns:Chronic ulcer of left foot due to diabetes mellitus (HCC) Take 1 tablet (5 mg) by mouth every 8 (eight) hours if needed for severe pain for up to 14 days. 42 tablet 11/22/19 25 2024 Discontinued(R eorder (will not trigger notification to Pharmacy)) Active Problems Problem Noted Date Diagnosed Date Multiple sclerosis 09/17/2024 Acute hyperkalemia 09/04/2024 Cerebral infarction 09/04/2024 MDD (major depressive disorder), recurrent episo de 09/04/2024 Hyponatremia 09/04/2024 PAD (peripheral artery disease) 09/04/2024 Prolonged QT interval 09/04/2024 Toe necrosis (CMS/HCC) 09/04/2024 Ulcer of left second toe 09/04/2024 Vitreous detachment 09/04/2024 Volume overload 09/04/2024 Opioid dependence 09/04/2024 Seizure disorder (CMS/HCC) 09/04/2024 Long-term current use of opiate analgesic 2024 Neurogenic bladder 03/07/2024 Bacteremia due to Pseudomonas 01/03/2024 Infection due to 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 (CMS/HCC) 10/23/2023 Seizure (CMS/HCC) 10/23/2023 Opioid dependence with opioid-induced disorder ( CMS/HCC) 10/23/2023 Blindness of both eyes 10/23/2023 Uncontrolled hypertension 10/23/2023 Systolic CHF 10/23/2023 Nonrheumatic tricuspid valve regurgitation 10/22 Nonrheumatic mitral valve regurgitation 10/23/19 24 Chronic back pain 10/23/2023 History of penicillin [...] retinopathy 11/24/2015 Overview (02/16/2022): Care managed by [facility] Obesity 11/24/2015 Anxiety 11/03/2015 Resolved Problems Problem [...] Encounters Date Type Department Care Team Description 11/21/2024 Orders Only [facility] MEDICINE [address] [place] [address] Genevieve Gtz MD Chronic ulcer of left foot due to diabetes mellitus ([facility]) 11/21/2024 Refill [facility] MED & PEDS [address] [place] [address] Paola Thurston RN Chronic ulcer of left foot due to diabetes mellitus ([facility]) 11/21/[address] [address] Genevieve Gtz MD Med Refill 11/20/2024 Telephone [facility] MED & PEDS [address] [place] [address] Paola Thurston RN 11/19/2024 3:15 PM EDT Clinical Support [facility] MED & PEDS [address] [place] [address] Paola Thurston, KIRIT Long-term current use of opiate analgesic (Primary Dx) 11/19/2024 Telephone [facility] MED & PEDS [address] [place] [address] Paola Thurston RN 11/19/2024 Travel 11/11/[address] [address] Genevieve Gtz MD Medication Question 11/10/2024 Patient Outreach [facility] MED & PEDS [address] [place] [address] Genevieve Gtz MD Pre-visit Planning (HDF scheduled. ) 11/10/[address] [address] Genevieve Gtz MD telephone call 11/06/[address] [address] Genevieve Gtz MD FYI 10/24/2024 Travel 10/24/2024 Telephone [facility] MED & PEDS [address] [place] [address] Paola Thurston RN 10/23/2024 Refill [facility] MED & PEDS [address] [place] [address] Paola Thurston RN Chronic ulcer of 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 (CMS/HCC); Chronic wound 10/23/2024 Telephone [facility] MEDICINE [address] [place] [address] Genevieve Gtz MD Med Refill 09/25/2024 Telephone [facility] MEDICINE [address] [place] [address] Genevieve Gtz MD chart prep 09/17/2024 Orders Only [facility] WALK[facility] [address] [place] [address] Genevieve Gtz MD Multiple sclerosis (CMS/HCC) (Primary Dx) 09/15/2024 Telephone [facility] MED [facility] PEDS [address] [place] [address] Paola Thurston RN CHEMICAL TECHNICIAN 09/15/2024 Refill [facility] MEDICINE [address] [place] [address] Genevieve Gtz MD Chronic ulcer of 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 (CMS/HCC); Chronic wound 09/15/[address] [address] Genevieve Gtz MD Durable Medical Equipment 09/05/2024 Orders Only [facility] External Provider, [facility] 08/27/2024 Results Follow-Up [facility] MEDICINE [address] [place] [address] Genevieve Gtz MD Glucose, Whole Blood, Glucose, Whole Blood, Glucose, Whole Blood 08/27/2024 Orders Only GENERIC EXTERNAL DATA DEPARTMENT Provider, Generic External Data 08/25/[address] [address] Genevieve Gtz MD Durable Medical Equipment; Med Refill 08/25/[address] [address] Genevieve Gtz MD Hospital Follow-up from Last 3 Months Immunizations Immunization Administration [...] Description 11/26/2024 10:15 AM EDT Office Visit [facility] MEDICINE [address] [place] [address] Genevieve Gtz MD [address] [place] [address] 12/01/2024 2:30 PM EDT Telemedicine [facility] MED [facility] PED[facility] [address] [place] [address] Paola Thurston RN [address] [place] [address] 02/11/2025 2:45 PM EST Clinical Support [facility] MED & PEDS [address] [place] [address] Paola Thurston RN [address] [place] [address] Health Maintenance Due Date Last Done Comments [...] 10/22/2024 10/23/2023, 10/23/19 24 COVID-19 Vaccine ( season) 2024 07/16/2020, 06/18/2020 Influenza Vaccine (#1) [...] WHOLE BLOOD Routine 08/27/2024 8:08 AM EDT HEPATITIS C AB W/REFL TO [...] PM EDT Narrative 09/08/2024 3:13 PM EDT [address] [address] Fluoroscopy Report Signed Patient: Shereen Taylor MR#: [id number] : 1990 Acct:[id number] Age/Sex: 34 / F ADM Date: 09/05/24 Loc: [facility] 483-[address]: Tawny Taylor NP Ordering Physician: Angela Ulloa Date of Service: 09/08/24 Procedure(s): FL guided lumbar puncture LP Accession Number(s): [id number] cc: Angela Ulloa; Genevieve Gtz MD EXAMINATION: [...] 09/08/24 1510 DD/ 1410 TD/TT: 09/08/24 1455 Charge Lpn: Procedure Note Donotsenaitinterpreter, Image - 09/08/2024 [place] [address] Fluoroscopy Report Signed Patient: Danna Taylor#: [id number] : 1990Acct:[id number] Age/Sex: 34 / FADM Date: 09/05/24 Loc: [facility] 483-[address]: Tawny Taylor NP Ordering Physician: Angela Ulloa Date of Service: 09/08/24 Procedure(s): FL guided lumbar puncture LP Accession Number(s): [id number] cc: Angela Ulloa; Genevieve Gtz MD EXAMINATION: [...] 09/08/24 1510 DD/ 1410 TD/TT: 09/08/24 1455 Charge Lpn: us [facility] External Provider IMG FLU OROSCOPY PROCEDURES Final Result * CT Chest w/o Contrast (08/27/2024 10:10 AM EDT) Anatomical Region Laterality Modality Body, Chest Computed Tomogra phy 08/27/2024 10:1 0 AM EDT Narrative 08/27/2024 10:11 AM EDT [address] [address] [address] Scan Report Signed Patient: Shereen Taylor MR#: [id number] : 1990 Acct:[id number] Age/Sex: 34 / F ADM Date: 08/27/24 Loc: HO.ED Attending Dr: Ordering Physician: Sylvia Saxena MD Date of Service: 08/27/24 Procedure(s): CT chest wo IV con Accession Number(s): [id number] cc: Sylvia Saxena MD; Genevieve Gtz MD Report Number: [id number]: Total DLP = 431.00 mGy-cm CLINICAL HISTORY: [...] 08/27/24 1011 DD/ 1010 TD/TT: 08/27/24 1010 Charge Lpn: Procedure Note Donotuseinterpreter, Image - 08/27/[address] [address] [address] Scan Report Signed Patient: Danna Taylor#: [id number] : 1990Acct:[id number] Age/Sex: 34 / FADM Date: 08/27/24 Loc: HO.ED Attending Dr: Ordering Physician: Sylvia Saxena MD Date of Service: 08/27/24 Procedure(s): CT chest wo IV con Accession Number(s): [id number] cc: Sylvia Saxena MD; Genevieve Gtz MD Report Number: [id number]: Total DLP = 431.00 mGy-cm CLINICAL HISTORY: [...] 08/27/24 1011 DD/ 1010 TD/TT: 08/27/24 1010 Charge Lpn: us [facility] External Provider IMG CT PROCEDURES Final Result * CT Abdomen Pelvis w/o Contrast (08/27/2024 10:05 AM EDT) Anatomical Region Laterality Modality Body, Pelvis, Abdomen Computed T omography 08/27/2024 10:0 5 AM EDT Narrative 08/27/2024 10:06 AM EDT [address] [place] [address] CT Scan Report Signed Patient: Shereen Taylor MR#: [id number] : 1990 Acct:[id number] Age/Sex: 34 / F ADM Date: 08/27/24 Loc: HO.ED Attending Dr: Ordering Physician: Sylvia Saxena MD Date of Service: 08/27/24 Procedure(s): CT abdomen pelvis wo IV con Accession Number(s): [id number] cc: Sylvia Saxena MD; Genevieve Gtz MD Report Number: [id number]: Total DLP = 932.00 mGy-cm CLINICAL HISTORY: [...] 08/27/24 1006 DD/ 1005 TD/TT: 08/27/24 1005 Charge Lpn: Procedure Note Donotuseinterpreter, Image - 08/27/[address] [address] [address] Scan Report Signed Patient: Christian TaylorR#: [id number] : 1990Acct:[id number] Age/Sex: 34 / FADM Date: 08/27/24 Loc: HO.ED Attending Dr: Ordering Physician: Sylvia Saexna MD Date of Service: 08/27/24 Procedure(s): CT abdomen pelvis wo IV con Accession Number(s): [id number] cc: Sylvia Saxena MD; Genevieve Gtz MD Report Number: [id number]: Total DLP = 932.00 mGy-cm CLINICAL HISTORY: [...] 08/27/24 1006 DD/ 1005 TD/TT: 08/27/24 1005 Charge Lpn: [facility] External Provider IMG CT PROCEDURES Final Result * CT Head w/o Contrast (08/27/2024 9:58 AM EDT) Anatomical Region Laterality Modality Head, Neck Computed Tomogra phy 08/27/2024 9:58 AM EDT Narrative 08/27/2024 9:59 AM EDT [place] [address] CT Scan Report Signed Patient: Shereen Taylor MR#: [id number] : 1990 Acct:[id number] Age/Sex: 34 / F ADM Date: 08/27/24 Loc: HO.ED Attending Dr: Ordering Physician: Sylvia Saxena MD Date of Service: 08/27/24 Procedure(s): CT head/brain wo IV con Accession Number(s): [id number] cc: Sylvia Saxena MD; Genevieve Gtz MD Report Number: [id number]: Total DLP = 700.00 mGy-cm CLINICAL HISTORY: [...] in OV> 08/27/24958 DD/ 7 TD/TT: 08/27/24957 Charge Lpn: Procedure Note Donotuseinterpreter, Image - 08/27/[address] [place] [address] [address] Scan Report Signed Patient: Danna Taylor#: [id number] : 1990Acct:[id number] Age/Sex: 34 / FADM Date: 08/27/24 Loc: HO.ED Attending Dr: Ordering Physician: Sylvia Saxena MD Date of Service: 08/27/24 Procedure(s): CT head/brain wo IV con Accession Number(s): [id number] cc: Sylvia Saxena MD; Genevieve Gtz MD Report Number: [id number]: Total DLP = 700.00 mGy-cm CLINICAL HISTORY: [...] in OV> 08/27/2459 DD/ 7 TD/TT: 08/27/24957 Charge Lpn: [facility] External Provider IMG CT PROCEDURES Final Result * CT Cervical Spine w/o Contrast (08/27/2024 9:55 AM EDT) Anatomical Region Laterality Modality Spine, C-spine Computed Tomogra phy 08/27/2024 9:55 AM EDT Narrative 08/27/2024 9:57 AM EDT [address] [address] [address] Scan Report Signed Patient: Shereen Taylor MR#: [id number] : 1990 Acct:[id number] Age/Sex: 34 / F ADM Date: 08/27/24 Loc: HO.ED Attending Dr: Ordering Physician: Sylvia Saxena MD Date of Service: 08/27/24 Procedure(s): CT cervical spine wo IV con Accession Number(s): [id number] cc: Sylvia Saxena MD; Genevieve Gtz MD Report Number: [id number]: Total DLP = 376.00 mGy-cm CLINICAL HISTORY: [...] in OV> 08/27/2456 DD/ 4 TD/TT: 08/27/24954 Charge Lpn: Procedure Note Donotuseinterpreter, Image - 08/27/[address] [address] [address] Scan Report Signed Patient: Danna Taylor#: [id number] : 1990Acct:[id number] Age/Sex: 34 / FADM Date: 08/27/24 Loc: HO.ED Attending Dr: Ordering Physician: Sylvia Saxena MD Date of Service: 08/27/24 Procedure(s): CT cervical spine wo IV con Accession Number(s): [id number] cc: Sylvia Saxena MD; Genevieve Gtz MD Report Number: [id number]: Total DLP = 376.00 mGy-cm CLINICAL HISTORY: [...] by Umang Hernandez MD in OV> 08/27/24 0956 DD/ 4 TD/TT: 08/27/24954 Charge Lpn: [facility] External Provider IMG CT PROCEDURES Final Result * Glucose, Whole Blood (08/27/2024 9:10 AM EDT) Only the most recent of3 resultswithin the time period is included. Glucose, Whole Blood 101 60 - 115 mg/dL [facility] Comment:METER #: [id number] 08/27/2024 9:10 AM EDT 08/27/2024 9:13 AM EDT Generic External Data Provider LAB BLOOD ORDERAB LES Final Result [facility] [address] [place] [address] [phone] * Hepatitis C Antibody with Reflex to HCV, RNA, Quantitative, Real-Time PCR (03/07/2024 9:45 AM EST) Hepatitis C Antibody Nonreactive Nonreactive [facility] Comment:Antibodies to HCV no t detected; does not exclude early acuteHCV infection. Blood Venous blood specimen / Unknown 03/07/2024 9:45 AM EST 03/07/2024 11:34 AM EST us Genevieve Casillas MD LAB BLOOD ORDERAB LES Final Result [facility] [address] [place] [address] [phone] * HIV-1/2 Antigen and Antibodies, Fourth Generation, with Reflexes (03/07/2024 9:45 AM EST) HIV AB/AG Nonreactive Nonreactive [facility] Comment:HIV-1 p24 Ag and/or HIV-1/HIV-2 Ab not detected.A test result that is nonreactive does not exclude thepossibility of exposure to or infection with HIV-1 and/orHIV-2. Nonreactive results in this assay for individualswith prior exposure to HIV-1 and/or HIV-2 may be due toantigen and antibody levels that are below the limit ofdetection of this assay.The IsomarkniRethinkDB HIV Ag/Ab Combo assay result andsupplemental assay results should be interpreted inconjunction with the patient's clinical presentation,history and other laboratory results. If the results areinconsistent with clinical evidence, additional testing issuggested to confirm the result. Blood Venous blood specimen / Unknown 03/07/2024 9:45 AM EST 03/07/2024 11:34 AM EST us Genevieve Casillas MD LAB BLOOD ORDERAB LES Final Result [facility] [address] [place] [address] [phone] * Hemoglobin A1c (03/07/2024 9:45 AM EST) Hemoglobin A1c 5.7 <6.0 % [facility] Comment:Hemoglobin A1C Refer ence Range Adults: 4.8 - 6.0 % Non diabetic: < 6.0 % Goal: < 7.0 %Additional Action Suggested: > 8.0 %Note: Hemoglobin A1c results are invalid for patients with abnormal amounts of HbF. Blood transfusions may impact the HbA1c concentration in the patient sample. Estimated Average Glucose 117 mg/dL [facility] Comment:eAG = Estimated ave rage glucose which is %A1C expressed asaverage glucose, using the formula of the Q9G-TzthxbmRhhemzc Glucose study (ADAG), Diabetes Care, Vol.31,#8,Sep. 2007 Blood Venous blood specimen / Unknown 03/07/2024 9:45 AM EST 03/07/2024 11:34 AM EST us Genevieve Casillas MD LAB BLOOD ORDERAB LES Final Result [facility] [address] [place] [phone] * (ABNORMAL) Lipid Panel, Standard (03/07/2024 9:45 AM EST) Triglycerides 36 <150 mg/dL [facility] Comment:Desirable Triglyceri de: less than 150 mg/dLBorderline High Triglyceride 150-199 mg/dLHigh Triglyceride: 200-499 mg/dLVery High Triglyceride: greater than or equal to 5OO mg/dL Cholesterol 107 <200 mg/dL [facility] Comment:Desirable Cholestero l: less than 200 mg/dLBorderline High Cholesterol: 200-239 mg/dLHigh Cholesterol: greater than 239 mg/dL LDL Cholesterol Calculated 65 <100 mg/dL [facility] Comment:Desirable LDL: less than 100 mg/dLNear Optimal/Above Optimal LDL: 110- 129 mg/dLBorderline High LDL: 130-159 mg/dLHigh LDL: 160-189 mg/dLVery High LDL: greater than or equal to 190 mg/dL HDL Cholesterol 35(L) >40 mg/dL [facility] Comment:Desirable HDL: great er than 40 mg/dL Note: This HDL assay may give artificially low results in patients with liver disease. Blood Venous blood specimen / Unknown 03/07/2024 9:45 AM EST 03/07/2024 11:34 AM EST Genevieve Casillas MD LAB BLOOD ORDERAB LES Final Result [facility] [address] [place] [address] [phone] from Last 3 Months or Most Recently Relevant to Health Maintenance Insurance [facility] CARE < 65 [address] [id number] Care Teams Organization Development Consultant Relationship Specialty Start Date End Date Genevieve Gtz MD [address] [place] [address] PCP - General Internal Medicine 10/12/22
--- OUTSIDE RECORDS SUMMARY | 2024-11-24 13:26 | XMS_ITS | Encounter Summary ---
Author Organization [employer] Address [address] [place] [address] [address]t [place] [address] Care Team Providers Care Horticultural Specialty Grower Field Name Role Phone Carolina Hsu CLERICAL STOCK INSPECTOR Primary Care Provider Genevieve Wilson MD Primary Care Pro vider Encounter Details Date Type Department Care Team (Late Contact Info) Description 09/11/2022 Abstract [facility] MEDICINE [address] [place] [phone] Carolina Hsu FNP Social History Tobacco Use [...] Upcoming Encounters Date Type Department Care Team ([facility] Contact Info) Description 11/26/2024 10:15 AM EDT Office Visit [facility] MEDICINE [address] [place] [phone] Genevieve Gtz MD [address] [place] [address] 12/01/2024 2:30 PM EDT Telemedicine [facility] MED & PEDS [address] [place] [address] Paola Thurston, RN [address] [place] [address] 02/11/2025 2:45 PM EST Clinical Support [facility] MED & PEDS [address] [place] [address] Paola Thurston, RN [address] [place] [address] documented as of this encounter Visit Diagnoses Not on filedocumented in this encounter Care Teams Horticultural Specialty Grower Field Relationship Specialty Start Date End Date Carolina Hsu FNP PCP - General Family Medicine 01/16/22 10/11/22 Genevieve Gtz MD [address] [place] [phone] PCP - General Internal Medicine 10/12/22 documented as of this encounter
--- OUTSIDE RECORDS SUMMARY | 2024-11-24 13:26 | XMS_ITS | Encounter Summary ---
Author Organization [employer] Address [address] [facility] [address]t [place] [address] Care Team Providers Care Dimension Quarry Supervisor Name Role Phone Genevieve Gtz MD Primary Care Pro vider Reason for Visit * Reason Onset Date Comments Med Refill 12/19/2023 Encounter Details Date Type Department Care Team ([facility] Contact Info) Description 12/19/2023 Telephone [facility] MEDICINE [address] [place] [address] Genevieve Gtz MD [address] [place], [place] [phone] Med Refill Social History Tobacco Use Types [...] be sent to: [facility]/pharmacy #[id number] [place] [address] - [address] [place] [address] documented in this encounter Plan of Treatment Upcoming Encounters Date Type Department Care Team (Late st Contact Info) Description 11/26/2024 10:15 AM EDT Office Visit [facility] MEDICINE [address] [place] [address] Genevieve Gtz MD [address] [place] [address] 12/01/2024 2:30 PM EDT Telemedicine [facility] MED & PEDS [address] [place] [address] Paola Thurston RN [address] [place] [address] 02/11/2025 2:45 PM EST Clinical Support [facility] MED & PEDS [address] [place] [address] Paola Thurston RN [address] [place] [address] documented as of this encounter Goals Goal [...] documented as of this encounter Care Teams Dimension Quarry Supervisor Relationship Specialty Start Date End Date Genevieve Gtz MD [address] [place] [phone] PCP - General Internal Medicine 10/12/22 documented as of this encounter
--- OUTSIDE RECORDS SUMMARY | 2024-11-24 13:26 | XMS_ITS | Encounter Summary ---
Author Organization [employer] Address [address] [facility] 7t [place] [address] Care Team Providers Care Research Rn Spec Name Role Phone Genevieve Gtz MD Primary Care Pro vider Reason for Visit * Reason Onset Date Comments Med Refill 01/14/2024 Encounter Details Date Type Department Care Team ([facility] Contact Info) Description 01/14/2024 Telephone [facility] MEDICINE [address] [place] [address] Genevieve Gtz MD [address] [place], [place] [phone] Med Refill Social History Tobacco Use Types [...] any questions you can contact pt at [phone]. * Telephone Encounter - Noelle Rodrigues - 01/14/2024 11:29 AM EST TC from pt requesting medication refill. Medications needing refill : oxyCODONE (Roxicodone) 5 MG immediate release tablet To be sent to: [facility]/pharmacy #[id number] [place] [address] documented in this encounter Plan of Treatment Upcoming Encounters Date Type Department Care Team (Late st Contact Info) Description 11/26/2024 10:15 AM EDT Office Visit [facility] MEDICINE [address] [place], [place] [phone] Genevieve Gtz MD [address] [place], [place] [phone] 12/01/2024 2:30 PM EDT Telemedicine [facility] MED & PEDS [address] [place], [place] [phone] Paola Thurston RN [address] [place] [address] 02/11/2025 2:45 PM EST Clinical Support [facility] CH[facility] MED & PEDS [address] [place], [place] [phone] Paola Thurston, KIRIT [address] [place], [place] documented as of this encounter Goals [...] documented as of this encounter Care Teams Research Rn Spec Relationship Specialty Start Date End Date Genevieve Gtz MD [address] [place] [address] PCP - General Internal Medicine 10/12/22 documented as of this encounter
--- OUTSIDE RECORDS SUMMARY | 2024-11-24 13:26 | XMS_ITS | Encounter Summary ---
Author Organization [employer] Address [address] [facility] 7t [place] [address] Care Team Providers Care Dental Aide Name Role Phone Genevieve Gtz MD Primary Care Pro vider Reason for Visit * Reason Onset Date Comments FYI 08/08/2024 Encounter Details Date Type Department Care Team ([facility] Contact Info) Description 08/08/2024 Telephone [facility] [address] [place], [place] [phone] Genevieve Gtz MD 230 [place], [place] [phone] FYI Social History Tobacco Use Types Packs/Day [...] 11:13 AM EDT Tc from Helen with [facility] reporting that patient was referred for [facility] services for wound care.Patient declined services, stating she manages her wound care independently and obtains her own supplies. Helen just wanted FYI to PCP documented in this encounter Plan of Treatment Upcoming Encounters Date Type Department Care Team (Late st Contact Info) Description 11/26/2024 10:15 AM EDT Office Visit [facility] [address] [place] [phone] Genevieve Gtz MD 230 [place] [address] 12/01/2024 2:30 PM EDT Telemedicine [facility] MED & PEDS 505 [place] [address] Paola Thurston RN 505 [place] [address] 02/11/2025 2:45 PM EST Clinical Support [facility] 505 [place] [address] Paola Thurston RN 505 [place] [address] documented as of this encounter Goals Goal [...] documented as of this encounter Care Teams Dental Aide Relationship Specialty Start Date End Date Genevieve Gtz MD [address] [place] [phone] PCP - General Internal Medicine 10/12/22 documented as of this encounter
--- OUTSIDE RECORDS SUMMARY | 2024-11-24 13:26 | XMS_ITS | Encounter Summary ---
Author Organization [employer] Address [address] [place] [address] 7t [place] [address] Care Team Providers Care Sand Polisher Name Role Phone Carolina Hsu HIGHWAY ENGINEERING TECHNICIAN Primary Care Provider Genevieve Wilson MD Primary Care Pro vider Encounter Details Date Type Department Care Team (Late Contact Info) Description 09/11/2022 Abstract [facility] [address] [place] [phone] Carolina Hsu FNP Social History Tobacco Use [...] Upcoming Encounters Date Type Department Care Team ([facility] Contact Info) Description 11/26/2024 10:15 AM EDT Office Visit [facility] [address] [place] [phone] Genevieve Gtz MD 230 [place] [address] 12/01/2024 2:30 PM EDT Telemedicine [facility] PEDS 505 [place] [address] Paola Thurston, RN 505 [place] [address] 02/11/2025 2:45 PM EST Clinical Support [facility] PEDS [address] [place] [address] Paola Thurston, RN [address] [place] [address] documented as of this encounter Visit Diagnoses Not on filedocumented in this encounter Care Teams Sand Polisher Relationship Specialty Start Date End Date Carolina Hsu FNP PCP - General Family Medicine 01/16/22 10/11/22 Genevieve Gtz MD [address] [place] [address] PCP - General Internal Medicine 10/12/22 documented as of this encounter
--- OUTSIDE RECORDS SUMMARY | 2024-11-24 13:26 | XMS_ITS | Encounter Summary ---
Author Organization [employer] Address [address] [place] [address] 7t [place] [address] Care Team Providers Care News Production Assistant Name Role Phone Carolina Hsu Primary Care Provider Genevieve Wilson MD Primary Care Pro vider Reason for Visit * Reason Onset Date Comments Med Refill 07/28/2022 Encounter Details Date Type Department Care Team ([facility] st Contact Info) Description 07/28/2022 Telephone [facility] [address] [place] [phone] Carolina Hsu FNP Med Refill Social History [...] Description 11/26/2024 10:15 AM EDT Office Visit [facility] 230 [place] [address] Genevieve Gtz MD 230 [place] [address] 12/01/2024 2:30 PM EDT Telemedicine [facility] MED & PEDS 505 [place] [address] Paola Thurston RN 505 [place] [address] 02/11/2025 2:45 PM EST Clinical Support [facility] [address] [place] [address] Paola Thurston RN 505 [place] [address] documented as of this encounter Visit Diagnoses Diagnosis Acute on chronic heart failure, unspecified heart failure type (HCC)- Primary Benign essential hypertension Essential hypertension, benign documented in this encounter Care Teams News Production Assistant Relationship Specialty Start Date End Date Carolina Hsu FNP PCP - General Family Medicine 01/16/22 10/11/22 Genevieve Gtz MD 230 [place] [address] PCP - General Internal Medicine 10/12/22 documented as of this encounter
--- OUTSIDE RECORDS SUMMARY | 2024-11-24 13:26 | XMS_ITS | Encounter Summary ---
Author Organization [employer] Address [address] [facility] 7t [place] [address] Care Team Providers Care Temporary Receptionist Name Role Phone Genevieve Gtz MD Primary Care Pro vider Encounter Details Date Type Department Care Team (Late st Contact Info) Description 01/21/2024 Telephone [facility] 230 [place], [place] [phone] Genevieve Gtz MD 230 [place], [place] [phone] Social History Tobacco Use Types Packs/Day Years [...] Oxycodone 5mg , pt requests a callback [phone] documented in this encounter Plan of Treatment Upcoming Encounters Date Type Department Care Team (Late st Contact Info) Description 11/26/2024 10:15 AM EDT Office Visit [facility] [address] [place] [address] Genevieve Gtz MD 230 [place] [address] 12/01/2024 2:30 PM EDT Telemedicine [facility] MED [facility] PEDS 505 [place] [address] Paola Thurston RN 505 [place] [address] 02/11/2025 2:45 PM EST Clinical Support [facility] 505 [place] [address] Paola Thurston RN 505 [place] [address] documented as of this encounter Goals Goal [...] documented as of this encounter Care Teams Temporary Receptionist Relationship Specialty Start Date End Date Genevieve Gtz MD [address] [place] [address] PCP - General Internal Medicine 10/12/22 documented as of this encounter
--- OUTSIDE RECORDS SUMMARY | 2024-11-24 13:26 | XMS_ITS | Encounter Summary ---
Author Organization [employer] Address [address] [facility] 7t [place] [address] Care Team Providers Care Grinder Watch Parts Name Role Phone Genevieve Gtz MD Primary Care Pro vider Reason for Visit * Reason Onset Date Comments Med Refill 12/05/2023 Encounter Details Date Type Department Care Team ([facility] Contact Info) Description 12/05/2023 Telephone [facility] 230 [place] [address] Genevieve Gtz MD 230 [place], [place] [phone] Med Refill Social History Tobacco Use Types [...] immediate release tablet To be sent to: [facility]/pharmacy #[address] [place] [address] - [address] [place] [address] documented in this encounter Plan of Treatment Upcoming Encounters Date Type Department Care Team (Late st Contact Info) Description 11/26/2024 10:15 AM EDT Office Visit [facility] [address] [place] [address] Genevieve Gtz MD 230 [place] [address] 12/01/2024 2:30 PM EDT Telemedicine [facility] & PEDS 505 [place] [address] Paola Thurston RN 505 [place] [address] 02/11/2025 2:45 PM EST Clinical Support [facility] 505 [place] [address] Paola Thurston RN 505 [place] [address] documented as of this encounter Goals Goal [...] documented as of this encounter Care Teams Grinder Watch Parts Relationship Specialty Start Date End Date Genevieve Gtz MD [address] [place] [address] PCP - General Internal Medicine 10/12/22 documented as of this encounter
--- OUTSIDE RECORDS SUMMARY | 2024-11-24 13:26 | XMS_ITS | Encounter Summary ---
Author Organization [employer] Address [address] [place] [address] 7[place] [address] Care Team Providers Care Swedish Masseuse Name Role Phone Genevieve Gtz MD Primary Care Pro vider Reason for Visit * Reason Onset Date Comments Med Refill 10/26/2022 Encounter Details Date Type Department Care Team ([facility] st Contact Info) Description 10/26/2022 Telephone [facility] 230 [place], [place] [phone] Genevieve Gtz MD 230 [place], [place] [phone] Med Refill Social History Tobacco Use Types [...] send to [facility]/pharmacy #[id number] - [place] - [address] Cool documented in this encounter Plan of Treatment Upcoming Encounters Date Type Department Care Team (Late st Contact Info) Description 11/26/2024 10:15 AM EDT Office Visit [facility] 230 [place] [address] Genevieve Gtz MD 230 [place] [address] 12/01/2024 2:30 PM EDT Telemedicine [facility] MED [facility] PEDS 505 [place] [address] Paola Thurston RN 505 [place] [address] 02/11/2025 2:45 PM EST Clinical Support [facility] MED [facility] PEDS 505 [place] [address] Paola Thurston RN 505 [place] [address] documented as of this encounter Visit Diagnoses Not on filedocumented in this encounter Additional Health Concerns Assessment Noted Time PHQ-9 Depression Total Score: 0 10/13/19 2:37 PM EDT documented as of this encounter Care Teams Swedish Masseuse Relationship Specialty Start Date End Date Genevieve Gtz MD [address] [place] [address] PCP - General Internal Medicine 10/12/22 documented as of this encounter
== END 2024-11-24 12:31 | disposition home or self-care (01) ==
LOC: HO.HSM 12:04
PROVIDERS: PCP Student in an Organized Health Care Education/Training Program; Visit Provider Psychiatry & Neurology Neurology
DX: G35 Multiple sclerosis (principal); G37.2 Central pontine myelinolysis; I67.89 Other cerebrovascular disease
CPT/HCPCS: 99214

== ENCOUNTER → 2024-11-24 12:03 | Outpatient (BNVA) | payer OTHER, SELFPAY | PROVIDERS: PCP Student in an Organized Health Care Education/Training Program; Visit Provider Psychiatry & Neurology Neurology | DX: G35 Multiple sclerosis (principal); G37.2 Central pontine myelinolysis; I67.89 Other cerebrovascular disease | CPT/HCPCS: 99212 ==

== ENCOUNTER 2024-12-09 17:12 | Inpatient (IN) | payer OTHER, SELFPAY ==
--- NOTE | ~2024-12-09 | XR_ITS ---
CLINICAL HISTORY: wound 2 view left foot Comparison: CR - XR FOOT LT MIN 3V - 07/21/24 16:06 EDT CR/SR - XR FOOT LT MIN 3V - 07/11/24 15:35 EDT Findings: Changes related to transmetatarsal amputation. Erosive changes to the 5th metatarsal base laterally is seen. Diffuse sclerotic changes of the 2nd through 4th metatarsals and distal tarsals. No significant loss of joint space, osteophytes, or erosions. No ankle effusion. No radiopaque foreign body. IMPRESSION: 1. New erosive changes of the 5th metatarsal base laterally, concerning for osteomyelitis. 2. Other chronic findings as detailed above. This document has been electronically signed by: Mariann Barnard MD on 12/09/2024 20:38:58
--- NOTE | ~2024-12-09 | MR_ITS ---
EXAMINATION: MR FOOT WITHOUT AND WITH CONTRAST, LEFT CLINICAL INFORMATION: Question left fifth metatarsal osteomyelitis. COMPARISON: X-ray 12/09/2024 TECHNIQUE: MRI of the left foot was performed before and after the intravenous administration of 9 mL Gadavist on a high-field scanner. FINDINGS: There is soft tissue wound/ulceration along the lateral aspect of the of the proximal fifth metatarsal. There is increased T2 signal in the soft tissues and muscles in this region region, consistent with edema/cellulitis, myositis. There is an area of nonenhancement in the soft tissues/muscles in this region measuring 2.1 x 1.7 x 0.7 cm, which could represent an area of decreased vascularity, phlegmon, abscess not excluded. There may be component of sinus tract in this region. There is abnormal bright T2, low T1 signal and enhancement in the proximal fifth metatarsal, highly suspicious for osteomyelitis. There is patchy T2 signal in the cuboid in this region,, which could reflect reactive edema or early osteomyelitis. Postsurgical changes related to transmetatarsal amputation. There are arthritic changes in the midfoot. No additional osteomyelitis is seen. Mild distal Achilles tendinosis.. Mild edema in the subjacent calcaneus, could reflect reactive edema or osseous contusion. No talar OCD. Tibiotalar articulation is maintained. No appreciable tenosynovitis. Plantar aponeurosis is intact. MR/MR foot LT wo/w con IMPRESSION: Soft tissue wound/ulceration along the lateral aspect of the proximal fifth metatarsal. There is edema/cellulitis/myositis in this region. Area of nonenhancement measuring 2.1 x 1.7 x 0.7 cm, could reflect an area of the decreased vascularity, phlegmon, component of abscess not excluded. There could be a component of sinus tract in this region. Clinically correlate. Abnormal findings in the proximal fifth metatarsal, highly suspicious for osteomyelitis. Signal changes in the cuboid, could reflect reactive edema or early osteomyelitis. Mild distal Achilles tendinosis. Reactive edema or contusion in the underlying bone. Electronically signed by: Babak Cloud MD 12/11/2024 02:11 PM EDT
[2024-12-09 17:27] VITALS: BP 156/81; PULSE 87; RESP 18; TEMP 36.7; O2SAT 98
[2024-12-09 17:28] VITALS: BP 135/65; PULSE 92; O2SAT 95
[2024-12-09 17:30] VITALS: BP 156/81; PULSE 87; RESP 20; TEMP 36.7; O2SAT 96; BMI 31.4
[2024-12-09 19:05] VITALS: BP 175/96; PULSE 92; RESP 16; TEMP 36.7; O2SAT 97
[2024-12-09 19:15] LABS: MANUAL DIFF FLAG NO
[2024-12-09 19:36] LABS: Alanine Aminotransferase 11 U/L (0-31); Albumin Level 4.2 g/dL (3.5-5.0); Alkaline Phosphatase 139 U/L (39-117); Anion Gap 14 (12-20); Aspartate Amino Transferase 21 U/L (5-31); Blood Urea Nitrogen 39 mg/dL (9-16); Calcium 8.3 mg/dL (8.4-10.2); Carbon Dioxide 32 mmol/L (22-29); Chloride 99 mmol/L (96-108); Creatinine Clr Calc Pharmacy 10.6; Estimated Glomerular Filt Rate 6; Lipase 50 U/L (8-78); Magnesium 2.4 mg/dL (1.6-2.6); Potassium 4.3 mmol/L (3.3-5.1); Sodium 141 mmol/L (135-145); Total Protein 8.2 g/dL (6.5-8.0)
[2024-12-09 19:40] LABS: Troponin-I High Sensitivity 63.4 ng/L (<3.5-17.0)
[2024-12-09 19:41] LABS: Hematocrit 33.5 % (37.0-47.0); Hemoglobin 10.6 g/dl (12.0-16.0); Imm Gran Abs Auto 0.02 X10*3/uL (0.00-0.03); Imm Gran Pct Auto 0.4 % (0.0-0.4); Lymphocytes Absolute Auto 0.6 X10*3/uL (1.2-4.9); Mean Corpuscular HGB Conc 31.6 g/dl (31.0-35.0); Mean Corpuscular Hemoglobin 30.1 pg (27.0-33.0); Mean Corpuscular Volume 95.2 fL (80.0-98.0); NRBC Abs Auto 0.000 X10*3/uL (0.0-0.012); NRBC Pct Auto 0.0 /100WBC (0.0-0.2); Platelet Count 117 X10*3/uL (160-400); Red Blood Count 3.52 X10*6/uL (4.20-5.50); White Blood Count 5.6 X10*3/uL (4.8-10.8)
[2024-12-09 19:48] LABS: INTERNATIONAL NORM RATIO 1.1 (0.9-1.1); Prothrombin Time 12.7 SEC (10.9-12.4)
[2024-12-09 21:18] VITALS: BP 170/92; PULSE 87; RESP 18; TEMP 37.1; O2SAT 92
--- NOTE | 2024-12-09 23:22 | ED_ITS ---
HPI - Wound/Laceration General Chief Complaint: Wound/Laceration Stated Complaint: wound lt foot Time Seen by Provider: 12/09/24 22:31 Source: patient and EMS Mode of arrival: EMS Limitations: physical limitation (blindness) History of Present Illness ED Provider: Dr. Joana Rodriguez HPI narrative: 34 year old female with extensive PMH including ESRD on dialysis, DM, blindness, MS, PAD, among others presenting with left foot pain ongoing for the last several days to weeks. She has a hard time differentiating her chronic neuropathic pain from new pain but admits the pain in her leg has worsened over the last 2 days and is extending to the mid calf on the left now. No reported fever. She is blind, but tells me her FRONT END DEVELOPER DESIGNER has been doing dressing changes, noting green, foul smelling drainage from the left foot wound on the outside of her foot. She has no toes on either foot due to previous amputations. Admits to feeling malaise and fatigue more than usual over the last 2 days. Denies other systemic symptoms including vomiting, bowel changes, chest pain, difficulty breathing or skin rashes. Related Data Home Medications ?Medication ?Instructions ?Recorded ?Confirmed albuterol sulfate 90 mcg/actuation 2 puff inhalation Q 6H PRN wheezing 01/15/24 12/10/24 aerosol inhaler (Ventolin HFA) lidocaine 5 % topical patch 1 patch topical DAILY PRN Pain 01/15/24 12/10/24 nitroglycerin 0.4 mg sublingual 0.4 mg sublingual D IRECTED PRN 01/15/24 12/10/24 tablet Angina acetaminophen 325 mg tablet 650 mg PO Q4H PRN mild jamar n 03/11/24 12/10/24 calcium carbonate (Tums) 200 mg PO TIDWM PRN Acid Ref lux 07/03/24 12/10/24 Previous Rx's ?Medication ?Instructions ?Recorded carvedilol 12.5 mg tablet 12.5 mg PO BID 90 days #180 tabs 12/16/23 hydralazine 50 mg tablet 50 mg PO TID 90 days #270 ta bs 12/16/23 blood sugar diagnostic (FreeStyle #100 ea 08/26/24 Lite Strips) blood-glucose meter (FreeStyle #1 ea 08/26/24 Lite Meter kit) lancets 28 gauge (FreeStyle #100 ea 08/26/24 Lancets) pen needle, diabetic 32 gauge x #100 ea 08/26/24 1/4 oxycodone 5 mg tablet 5 mg PO Q8H PRN pain #15 tab s 09/10/24 fidaxomicin 200 mg tablet (Dificid) 200 mg PO Q12H #22 tabs 11/04/24 Allergies Allergy/AdvReac Type Severity Reaction Status Date / Time gabapentin Allergy Severe Facial Verified 12/09/24 17:43 Swelling tramadol Allergy Severe Facial Verified 12/09/24 17:43 Swelling azithromycin (From Zithromax) Allergy Intermediate Hives Verified 12/09/24 17:43 morphine (MORPHINE) Allergy Intermediate Itching Verified 12/09/24 17:43 Review of Systems 2 Review of Systems: as per HPI, full review of systems performed and negative but for the above mentioned pertinent positives and negatives. [facility] Past Medical History Medical History Multiple sclerosis Cerebral infarction Hyperkalemia ESRD on dialysis Hypoxia End stage renal disease on dialysis Chronic ulcer of right foot due to diabetes mellitus Chronic ulcer of left foot due to diabetes mellitus DM foot ulcer ESRD on hemodialysis Hypotonic neurogenic bladder Diabetic polyneuropathy Hypertensive emergency Decompensated heart failure Renal failure Hypertension, uncontrolled Medical non-compliance Pericarditis Unspecified hypertension, condition or complication Metabolic acidosis Gastroparesis End stage chronic kidney disease Chronic kidney disease Anemia Plantar ulcer of left foot MDD (major depressive disorder) CKD (chronic kidney disease) Hypertension Vomiting Chronic pain Non-compliance with renal dialysis End-stage renal disease (ESRD) Diabetic foot ulcer associated with type 2 diabetes mellitus Cardiomyopathy HFrEF (heart failure with reduced ejection fraction) delivery delivered Anemia in chronic kidney disease (CKD) CKD (chronic kidney disease) Abnormal finding on echocardiogram Elevated troponin Acute worsening of stage 3 chronic kidney disease Generalized edema Sepsis Cellulitis Pleural effusion Atypical chest pain Bone infection PAD (peripheral artery disease) Cellulitis and abscess of foot Osteomyelitis Asthma Depression with anxiety Diabetic retinopathy Blind right eye Diabetes Back pain Surgical History Tubal ligation status Previous section Hx laparoscopic cholecystectomy Hx of surgical procedure (~09/11/23) 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 Family History Family History Mother Coronary artery disease Myocardial infarction Stroke Diabetes mellitus Father Myocardial infarction Social History Social History Household Members: Family and Caregiver Household Members Other:: sister, brother, [id number] Housing: Apartment Housing Other:: Apartment, 1st floor Are you a primary healthcare economics consultant to a significant other at home: No Do you presently have visiting nurse or other home services: No Alcohol intake: never Comment: Intermittently refuses Patient Tobacco Use Status: Never used Tobacco e-Cigarette/Vaping Use: Never Used Second Hand Smoke Exposure: No Advance Directives Date on File: 08/28/23 service: No Current occupational status: unemployed and disabled Gender identity: Female Physical Exam 2 Exam: Exam: GENERAL: Chronically ill-appearing, conversant, no acute distress. SKIN: Normal skin color for ethnicity, warm, diabetic foot ulcers noted on both feet. HEENT: Normocephalic, atraumatic, no stridor, posterior oropharynx nonerythematous, cloudy corneas R>L. NECK: Soft, supple, full ROM, midline structures nontender, no step-offs, no deformities, no lymphadenopathy. CHEST: Heart regular rate and rhythm, no murmurs, symmetric chest rise and fall. PULMONARY: Clear to auscultation bilaterally, no labored breathing, no wheezes/rhales/ rhonchi. ABDOMINAL: Soft, nondistended, nontender, positive bowel sounds in all quadrants. : Deferred. MUSCULOSKELETAL: Normal tone, full range of motion, bilateral toe amputations, forefoot on the L has 3 ulcers of various stages, lateral ulcer at rogelio 5th metatarsal is down to the muscular layer with some bleeding, foul smelling discharge and surrounding granulation tissue, other wounds on heel and medial aspect of the dorsal foot are superficial and dry. NEURO: Alert and oriented to person, CN grossly intact other than vision, no focal neurologic deficits. PSYCHIATRIC: Flat affect, fluid speech, appropriate demeanor. Vital Signs: Vital Signs: Last Vital Signs Temp 97.3 F 12/10/24 19:19 Pulse 92 12/10/24 19:19 Resp 14 12/10/24 19:19 BP 164/80 H 12/10/24 19:19 Pulse Ox 93 10/15/25 19:19 O2 Del Method Room Air 12/10/24 19:19 O2 Flow Rate 2 12/10/24 13:22 BMI result Body Mass Index 31.4 Medications Administered Generic Name Dose Route Start Last Admin Trade Name Freq PRN Reason Stop Dose Admin Cyanocobalamin 100 mcg 12/10/24 12:00 12/10/24 13:17 Cyanocobalamin (Vitamin B-12) 100 Mcg Tablet PO Not Given DAILY [facility] Diphenhydramine HCl 12.5 mg 12/10/24 11:32 12/11/24 01:35 Diphenhydramine Hcl 50 Mg/Ml Vial IVPUSH 12.5 mg Q6H PRN Administration Itching Folic Acid 1 mg 12/10/24 12:00 12/10/24 13:17 Folic Acid 1 Mg Tablet PO Not Given DAILY [facility] Heparin Sodium (Porcine) 5,000 unit 12/10/24 09:30 12/10/24 23:06 Heparin Sodium,Porcine 5,000 Unit/Ml Vial SUBCUT Not Given Q12H [facility] Hydromorphone HCl 0.5 mg 12/10/24 03:35 12/10/24 23:10 Hydromorphone Hcl 0.5 Mg/0.5 Ml Syringe IVPUSH 0.5 mg Q4H PRN Administration Pain, Severe (Pain Scale 7-10) Protocol Cefepime HCl 2 gm in 50 mls @ 100 mls/hr 12/11/24 00:00 12/10/24 23:41 Maxipime IV Infused Q24H [facility] Infusion Insulin Human Lispro 0 unit 12/10/24 07:30 12/10/24 20:55 Insulin Lispro 100 Unit/Ml 3 Ml Vial SUBCUT Not Given QIDACHS [facility] Protocol Ondansetron HCl 4 mg 12/10/24 03:35 12/10/24 18:53 Ondansetron Hcl 4 Mg/2 Ml Vial IVPUSH 4 mg Q6H PRN Administration Nausea and Vomiting Sodium Chloride 3 ml 12/10/24 08:00 12/11/24 00:00 0.9 % Sodium Chloride Flush 3 Ml Syringe IVFLUSH 3 ml QSHIFT [facility] Administration Thiamine HCl 100 mg 12/10/24 12:00 12/10/24 13:17 Thiamine Hcl 100 Mg Tablet PO Not Given DAILY [facility] Discontinued Medications Generic Name Dose Route Start Last Admin Trade Name Momoq PRN Reason Stop Dose Admin Diphenhydramine HCl 50 mg 12/09/24 23:38 12/10/24 00:01 Diphenhydramine Hcl 50 Mg/Ml Vial IVPUSH 12/09/24 23:39 50 mg ONCE ONE Administration Hydromorphone HCl 1 mg 12/09/24 23:38 12/09/24 23:59 Hydromorphone Hcl 1 Mg/Ml Syringe IVPUSH 12/09/24 23:39 1 mg ONCE ONE Administration Protocol Cefepime HCl 2 gm in 50 mls @ 100 mls/hr 12/09/24 23:38 12/10/24 00:43 Maxipime IV 12/10/24 00:07 Infused ONCE ONE Infusion Vancomycin HCl 2,000 mg in 500 mls @ 250 mls/hr 12/09/24 23:38 12/10/24 02:50 Vancomycin/Ns IV 12/10/24 01:37 Infused ONCE ONE Infusion Labetalol HCl 10 mg 12/10/24 03:06 12/10/24 03:32 Labetalol Hcl 100 Mg/20 Ml Vial IVPUSH 12/10/24 03:07 10 mg ONCE STA Administration Ondansetron HCl 4 mg 12/09/24 23:40 12/10/24 00:43 Ondansetron Hcl 4 Mg/2 Ml Vial IVPUSH 12/09/24 23:41 4 mg ONCE ONE Administration Medical Decision Making Medical Decision Making [facility] Narrative: Patient presents today with chief complaint of possible infection. Differential diagnosis includes abscess, cellulitis, deep space infection such as fasciitis, bone infection, vascular abnormality, among many others. Findings are not consistent with fasciitis specifically with no crepitus, blistering of the skin, pain out of proportion, hemodynamic instability. XR showing evidence of osteomyelitis. Initiating broad spectrum antibiotics which patient has tolerated in the past with benadryl pretreatment. Admitted in guarded condition. Differential Diagnosis Differential Diagnoses: The differential diagnosis associated with the presentation includes (as above) Admission/Observation Consideration of admission/observation: Escalation of care including admission/observation considered Consult Healthcare Provider Management of the patient was discussed with: Hospitalist Lab Data [facility] Lab Attestation statement: I reviewed the patient's lab results. CRP, ESR elevated, lactic low, WBC not elevated, renal failure is baseline/high for patient 12/10/24 04:29 12/10/24 04:29 Labs: Lab Results 12/09/24 12/09/24 12/09/24 Range/Units 19:08 19:09 23:42 WBC 5.6 (4.8-10.8) X10*3/uL RBC 3.52 L D (4.20-5.50) X10*6/uL Hgb 10.6 L D (12.0-16.0) g/dl Hct 33.5 L D (37.0-47.0) % MCV 95.2 (80.0-98.0) fL MCH 30.1 (27.0-33.0) pg MCHC 31.6 (31.0-35.0) g/dl RDW 14.4 (11.0-16.0) % Plt Count 117 L (160-400) X10*3/uL MPV 11.6 (9.4-12.3) fL Immature Gran % (Auto) 0.4 (0.0-0.4) % Neut % (Auto) 75.5 H (45-73) % Lymph % (Auto) 10.0 L (20-40) % [place] % (Auto) 10.0 (2-11) % Eos % (Auto) 3.6 (0-4) % Baso % (Auto) 0.5 (0-2) % Lymph # (Auto) 0.6 L (1.2-4.9) X10*3/uL [place] # (Auto) 0.6 (0.1-1.2) X10*3/uL Eos # (Auto) 0.2 (0.0-0.4) X10*3/uL Baso # (Auto) 0.0 (0.0-0.2) X10*3/uL Abs Immat Gran (auto) 0.02 (0.00-0.03) X10*3/uL Absolute Neuts (auto) 4.2 (2.0-8.3) x10*3/uL Absolute Nucleated RBC 0.000 (0.0-0.012) X10*3/uL Nucleated RBC % (auto) 0.0 (0.0-0.2) /100WBC ESR 67 H (0-20) MM/HR PT 12.7 H (10.9-12.4) SEC INR 1.1 (0.9-1.1) Sodium 141 (135-145) mmol/L Potassium 4.3 (3.3-5.1) mmol/L Chloride 99 (96-108) mmol/L Carbon Dioxide 32 H (22-29) mmol/L Anion Gap 14 (12-20) BUN 39 H (9-16) mg/dL Creatinine 8.15 H* (0.5-1.4) mg/dL Estim Creat Clear Calc 10.6 Estimated GFR 6 Random Glucose 214 H (60-115) mg/dL Lactic Acid 1.2 (0.5-2.0) mmol/L Calcium 8.3 L D (8.4-10.2) mg/dL Magnesium 2.4 (1.6-2.6) mg/dL Total Bilirubin 0.8 (0.0-1.0) mg/dL Direct Bilirubin 0.3 (0.0-0.5) mg/dL AST 21 (5-31) U/L ALT 11 (0-31) U/L Alkaline Phosphatase 139 H (39-117) U/L Troponin I High Sens 63.4 H* D (<3.5-17.0) ng/L C-Reactive Protein 0.98 H (< or = 0.50) mg/dL Total Protein 8.2 H (6.5-8.0) g/dL Albumin 4.2 (3.5-5.0) g/dL Lipase 50 (8-78) U/L Radiology Impression Discussion of test interpretation with radiology: I have reviewed the radiologist's reading. Independent Historian Clinical information obtained from an independent historian. History obtained from or confirmed by: EMS Chronic Conditions Patient?s care impacted by: Diabetes, Hypertension and Other (ESRD) Social Determinants Patient?s care significantly limited by Social Determinants of Health including: Other Social Determinant of Health Discharge Plan Discharge Clinical Impression: Acute osteomyelitis of left foot, Acute pain of left foot Patient Disposition: Admitted As Inpatient Interventions: Admission Worksheet (ED) Last Done: 12/10/24 18:14 Discharge Date/Time: 12/10/24 18:53
[2024-12-09] MEDS: cefEPime HCl/D5W 2 GM/50 ML PIGGYBACK IV (23:59)
[2024-12-10] VITALS (10 sets, daily range): BP systolic 114–199; BP diastolic 66–110; PULSE 86–101; RESP 14–20; TEMP 36.3–36.7; O2SAT 89–100; BMI 31.7
[2024-12-10] MEDS: vancomycin/NS 2,000 MG/500 ML PLAST..BAG 250 MG IV (00:43)
--- NOTE | 2024-12-10 04:09 | PM.IMHP ---
History of Present Illness Date of Service: 12/10/24 Attending physician on admission: Lele Maria Chief Complaint: Left foot wound and discharge Shereen Taylro is a 34 years old woman with past medical history significant for PAD s/p bilateral TMA, ESRD on HD (TTS), type 2 diabetes mellitus on insulin, diabetic retinopathy with blindness, essential hypertension, MS, chronic hypoxia on supplemental oxygen, HFrEF, C diff infection and bacteremias with multiple organisms presents to the emergency department complaining of left foot worsening pain. Also, the wound has malodorous bloody discharge. She denied fever or chills. On 11/05/2024, she underwent left foot debridement by Dr. Rajput. She did not report any acute cardiopulmonary or gastrointestinal symptoms. In the ED she was found to have stable vital signs. On supplemental oxygen via nasal cannula 2 mL/min, baseline. Blood workup showed no leukocytosis or lactic acidosis. Hemoglobin is 10.6 and platelets 117. ESR is 67. There are no significant electrolyte imbalances but CO2 is 32. Creatinine is 8.15 and BUN 39. Troponin is 63.4. Left foot x-ray showed new erosive changes of the 5th metatarsal base laterally concerning for osteomyelitis. ED tx: Cefepime 2 g IV, vancomycin 2 g, Dilaudid 1 mg IV, Benadryl 50 mg IV, Zofran 4 mg IV Review of Systems Review of Systems: All 12 systems were reviewed and normal except as noted in HPI. [facility] Medical History (Updated 12/10/24 @ 04:47 by Lele Maria MD) Multiple sclerosis Cerebral infarction Hyperkalemia ESRD on dialysis Hypoxia End stage renal disease on dialysis Chronic ulcer of right foot due to diabetes mellitus Chronic ulcer of left foot due to diabetes mellitus DM foot ulcer ESRD on hemodialysis Hypotonic neurogenic bladder Diabetic polyneuropathy Hypertensive emergency Decompensated heart failure Renal failure Hypertension, uncontrolled Medical non-compliance Pericarditis Unspecified hypertension, condition or complication Metabolic acidosis Gastroparesis End stage chronic kidney disease Chronic kidney disease Anemia Plantar ulcer of left foot MDD (major depressive disorder) CKD (chronic kidney disease) Hypertension Vomiting Chronic pain Non-compliance with renal dialysis End-stage renal disease (ESRD) Diabetic foot ulcer associated with type 2 diabetes mellitus Cardiomyopathy HFrEF (heart failure with reduced ejection fraction) delivery delivered Anemia in chronic kidney disease (CKD) CKD (chronic kidney disease) Abnormal finding on echocardiogram Elevated troponin Acute worsening of stage 3 chronic kidney disease Generalized edema Sepsis Cellulitis Pleural effusion Atypical chest pain Bone infection PAD (peripheral artery disease) Cellulitis and abscess of foot Osteomyelitis Asthma Depression with anxiety Diabetic retinopathy Blind right eye Diabetes Back pain Family History Mother Coronary artery disease Myocardial infarction Stroke Diabetes mellitus Father Myocardial infarction Surgical History Tubal ligation status Previous section Hx laparoscopic cholecystectomy Hx of surgical procedure (~09/11/23) 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 Social History Household Members: Family and Children Household Members Other:: sister, brother, [id number] Housing: Apartment Housing Other:: Apartment, 1st floor Are you a primary managed care manager to a significant other at home: No Do you presently have visiting nurse or other home services: No Alcohol intake: never Comment: Intermittently refuses Patient Tobacco Use Status: Never used Tobacco Smoked in Last 30 Days: No e-Cigarette/Vaping Use: Never Used Second Hand Smoke Exposure: No Use of substances other than those prescribed or required for medical reasons: No Advance Directives: Yes Advance Directives on File: Yes Advance Directives Date on File: 08/28/23 Nutrition Risks: No Nutritional Risk Patient : No service: No Current occupational status: unemployed and disabled Gender identity: Female Meds Allergies Allergy/AdvReac Type Severity Reaction Status Date / Time gabapentin Allergy Severe Facial Verified 12/09/24 17:43 Swelling tramadol Allergy Severe Facial Verified 12/09/24 17:43 Swelling vancomycin Allergy Severe Anaphylaxis Verified 12/09/24 17:43 azithromycin (From Zithromax) Allergy Intermediate Hives Verified 12/09/24 17:43 morphine (MORPHINE) Allergy Intermediate Itching Verified 12/09/24 17:43 Active Medications: Current Medications Acetaminophen (Acetaminophen 325 Mg Tablet) 650 mg PO Q6H PRN PRN Reason: Pain, Mild 1-3,fever,headache Calcium Carbonate (Calcium Carbonate 750 Mg Tab.Chew) 750 mg PO Q4H PRN PRN Reason: Heartburn Dextrose (Dextrose 50 % 25 Gm/50 Ml Syringe) 25 gm IVPUSH Q15M PRN; Protocol PRN Reason: per Hypoglycemia Standing Ord. Glucose (Glucose Gel 15 Gm Gel..Gram.) 15 gm PO Q15M PRN; Protocol PRN Reason: per Hypoglycemia Standing Ord. Heparin Sodium (Porcine) (Heparin Sodium,Porcine 5,000 Unit/Ml Vial) 5,000 unit SUBCUT Q12H [facility]ASILE Hydromorphone HCl (Hydromorphone Hcl 0.5 Mg/0.5 Ml Syringe) 0.5 mg IVPUSH Q4H PRN; Protocol PRN Reason: Pain, Severe (Pain Scale 7-10) Cefepime HCl (Maxipime) 2 gm in 50 mls @ 100 mls/hr IV Q24H VASILE Insulin Human Lispro (Insulin Lispro 100 Unit/Ml 3 Ml Vial) 0 unit SUBCUT QIDACHS [facility]; Protocol Magnesium Hydroxide (Milk Of Magnesia 30 Ml Oral.Susp) 30 ml PO DAILY PRN PRN Reason: Constipation Melatonin (Melatonin 3 Mg Tablet) 6 mg PO BEDTIME PRN PRN Reason: Insomnia Ondansetron HCl (Ondansetron Hcl 4 Mg/2 Ml Vial) 4 mg IVPUSH Q6H PRN PRN Reason: Nausea and Vomiting Pharmacy Consult (Consult Rx Vancomycin Dosing) 1 each MISCELLANE DAILY PRN PRN Reason: Consult order Sodium Chloride (0.9 % Sodium Chloride Flush 3 Ml Syringe) 3 ml IVFLUSH QSHIFT [facility] Home Medications ?Medication ?Instructions ?Recorded ?Confirmed ?Last Taken ?Type albuterol sulfate 90 mcg/actuation 2 puff inhalation Q6H PRN wheezing 01/15/24 10/29/24 10/28/24 History aerosol inhaler (Ventolin HFA) lidocaine 5 % topical patch 1 patch topical DAILY PRN Pain 01/15/24 10/29/24 10/28/24 History nitroglycerin 0.4 mg sublingual 0.4 mg sublingual DIRECTED PRN 01/15/24 10/29/24 10/28/24 History tablet Angina acetaminophen 325 mg tablet 650 mg PO Q4H PRN mild pain 03/11/24 10/29/24 10/28/24 History calcium carbonate (Tums) 200 mg PO TIDWM PRN Acid Reflux 07/03/24 10/29/24 10/28/24 History Physical Exam Vital Signs and Narrative: Vital Signs: Last Vital Signs Temp 97.9 F 12/10/24 00:01 Pulse 101 H 12/10/24 03:32 Resp 16 12/10/24 03:30 BP 199/110 H 12/10/24 03:32 Pulse Ox 100 12/10/24 03:38 O2 Del Method Nasal Cannula 12/10/24 03:38 O2 Flow Rate 2 12/10/24 03:38 BMI result Body Mass Index 31.4 General: Alert, oriented, in no acute distress. Cooperative. Afebrile. HEENT: Head normocephalic, atraumatic. Sclerae anicteric, conjunctiva clear. Oropharynx without erythema or exudate. Mucous membranes moist. Neck: Supple, no lymphadenopathy, or JVD. Heart: RRR, no murmurs, rubs or gallops. Lungs: Clear to auscultation bilaterally. No wheezes, rales, or rhonchi. Normal respiratory effort. Abdomen: Soft, non tenderness, nondistended, normoactive bowel sounds. No hepatosplenomegaly, masses. Extremities: Bilateral transmetatarsal amputation. Left foot: Lateral aspect would with bony necrosis with foul-smelling discharge. Musculoskeletal: Full range of motion. No joint swelling, deformity, or tenderness. Normal muscle tone and strength. Skin: Warm/Dry. No pallor. No jaundice. Neurologic: Alert & oriented x4. Moving all extremities spontaneously. Normal speech. Psychological: Depressed mood and affect. Thought process coherent. Results Labs 12/09/24 19:08 12/09/24 19:08 Labs: Laboratory Results - last 24 hr 12/09/24 12/09/24 12/09/24 19:08 19:09 23:42 MCV 95.2 MCH 30.1 MCHC 31.6 RDW 14.4 Plt Count 117 L MPV 11.6 Immature Gran % (Auto) 0.4 Neut % (Auto) 75.5 H Lymph % (Auto) 10.0 L [place] % (Auto) 10.0 Eos % (Auto) 3.6 Baso % (Auto) 0.5 Lymph # (Auto) 0.6 L [place] # (Auto) 0.6 Eos # (Auto) 0.2 Baso # (Auto) 0.0 Abs Immat Gran (auto) 0.02 Absolute Neuts (auto) 4.2 Absolute Nucleated RBC 0.000 Nucleated RBC % (auto) 0.0 ESR 67 H PT 12.7 H INR 1.1 Anion Gap 14 Estim Creat Clear Calc 10.6 Estimated GFR 6 Random Glucose 214 H Lactic Acid 1.2 Calcium 8.3 L D Magnesium 2.4 Total Bilirubin 0.8 Direct Bilirubin 0.3 AST 21 ALT 11 Alkaline Phosphatase 139 H Troponin I High Sens 63.4 H* D C-Reactive Protein 0.98 H Total Protein 8.2 H Albumin 4.2 Lipase 50 Assessment and Plan (1) DM foot ulcer: Qualifiers: Diabetic foot ulcer location: midfoot Diabetes mellitus type: due to underlying condition Laterality: left Non-pressure ulcer stage: unspecified non-pressure ulcer stage Qualified Code(s): E08.621 - Diabetes mellitus due to underlying condition with foot ulcer; L97.429 - Non-pressure chronic ulcer of left heel and midfoot with unspecified severity Status: Acute (2) Osteomyelitis: Qualifiers: Laterality: right Osteomyelitis location: foot Osteomyelitis type: unspecified type Qualified Code(s): M86.9 - Osteomyelitis, unspecified Status: Acute Plan Shereen Taylor is a 34 y/o woman with a PMHx significant for PAD s/p bilateral TMA who presents with: Left foot would infection associated with possible 5th metatarsal base osteomyelitis; recent debridement. Continue empiric IV antibiotic therapy with cefepime and vancomycin. Obtain left foot MRI. Wound care. Surgery and ID consult. ESRD on HD. Has been compliant with hemodialysis. Last hemodialysis yesterday. Nephrology consult for inpatient hemodialysis. Type 2 diabetes mellitus. BG checks before meals at bedtime. Insulin sliding scale. Diabetic diet. Essential hypertension. Continue home meds. HFrEF. No acute symptoms. Chronic hypoxia. Continue supplemental oxygen. History of C diff. Denied diarrhea. History of MS. Code status: Full DVT prophylaxis: Heparin med rec pending Patient will need hospitalization for at least 2 midnights for left foot infection treatment with IV antibiotics and evaluation by Surgical Service. This documentation was generated using dictation software; minor spreading or clinical informaticist errors may be present. Quality Stroke Does the patient have a stroke diagnosis?: No VTE Prior VTE?: No VTE Risk Level:: Medical - moderate - high VTE Device Contraindication: Treatment Not Indicated VTE Drug Contraindication: N/A - Med Ordered
[2024-12-10 05:26] LABS: MANUAL DIFF FLAG NO
[2024-12-10 05:43] LABS: Hematocrit 30.0 % (37.0-47.0); Hemoglobin 9.8 g/dl (12.0-16.0); Imm Gran Abs Auto 0.04 X10*3/uL (0.00-0.03); Imm Gran Pct Auto 0.6 % (0.0-0.4); Lymphocytes Absolute Auto 0.7 X10*3/uL (1.2-4.9); Mean Corpuscular HGB Conc 32.7 g/dl (31.0-35.0); Mean Corpuscular Hemoglobin 31.1 pg (27.0-33.0); Mean Corpuscular Volume 95.2 fL (80.0-98.0); NRBC Abs Auto 0.000 X10*3/uL (0.0-0.012); NRBC Pct Auto 0.0 /100WBC (0.0-0.2); Platelet Count 104 X10*3/uL (160-400); Red Blood Count 3.15 X10*6/uL (4.20-5.50); White Blood Count 7.2 X10*3/uL (4.8-10.8)
[2024-12-10 05:46] LABS: Anion Gap 21 (12-20); Blood Urea Nitrogen 53 mg/dL (9-16); Calcium 7.6 mg/dL (8.4-10.2); Carbon Dioxide 25 mmol/L (22-29); Chloride 103 mmol/L (96-108); Creatinine Clr Calc Pharmacy 9.2; Estimated Glomerular Filt Rate 5; Magnesium 2.3 mg/dL (1.6-2.6); Potassium 5.6 mmol/L (3.3-5.1); Sodium 143 mmol/L (135-145)
[2024-12-10 07:13] LABS: Glucose, Whole Blood 100 mg/dL (60-115)
--- NOTE | 2024-12-10 08:34 | PHA.MEDREC ---
Pharmacy Consult ? Medication Reconciliation Pharmacy has completed the medication reconciliation. Spoke to patient at bedside, she states that her meds have not changed since she was last here and she took them last night.
--- NOTE | 2024-12-10 08:40 | P.CONGS_ITS ---
History of Present Illness Consult details Consult date: 12/10/24 <Regino Sauceda PA-C - Last Filed: 12/10/24 09:18> Narrative: 34 year old female with a complicated medical history inclduing ESRD on dialysis, PAD, MS. She is well known to our service, Recently had debridement of the pantar aspect of the left foot on 11/05/24 seen in consult for left foot wound. She is endorsing a 4 day history of pain in the left foot. States the pain is on the outside of the foot. Has been draining some purulent fluid. She had an xray of the foot showing new degenerative changes of the 5th metatarsal base laterally, concerning for osteomyelitis. She states she has been having SUPPORT TECHNICIAN change dressings prior to admission. Additionally has some concern for the right foot <Regino Sauceda PA-C - Last Filed: 12/10/24 09:18> Review of Systems 2 Review of Systems: Yes all other systems are reviewed and are negative < Regino Sauceda PA-C - Last Filed: 12/10/24 09:18> [facility] Past Medical History Medical History: Medical History (Updated 12/10/24 @ 04:47 by Lele Maria MD) Multiple sclerosis Cerebral infarction Hyperkalemia ESRD on dialysis Hypoxia End stage renal disease on dialysis Chronic ulcer of right foot due to diabetes mellitus Chronic ulcer of left foot due to diabetes mellitus DM foot ulcer ESRD on hemodialysis Hypotonic neurogenic bladder Diabetic polyneuropathy Hypertensive emergency Decompensated heart failure Renal failure Hypertension, uncontrolled Medical non-compliance Pericarditis Unspecified hypertension, condition or complication Metabolic acidosis Gastroparesis End stage chronic kidney disease Chronic kidney disease Anemia Plantar ulcer of left foot MDD (major depressive disorder) CKD (chronic kidney disease) Hypertension Vomiting Chronic pain Non-compliance with renal dialysis End-stage renal disease (ESRD) Diabetic foot ulcer associated with type 2 diabetes mellitus Cardiomyopathy HFrEF (heart failure with reduced ejection fraction) delivery delivered Anemia in chronic kidney disease (CKD) CKD (chronic kidney disease) Abnormal finding on echocardiogram Elevated troponin Acute worsening of stage 3 chronic kidney disease Generalized edema Sepsis Cellulitis Pleural effusion Atypical chest pain Bone infection PAD (peripheral artery disease) Cellulitis and abscess of foot Osteomyelitis Asthma Depression with anxiety Diabetic retinopathy Blind right eye Diabetes Back pain <LEXA Gomez Last Filed: 12/10/24 09:18> Family History Family History: Family History Mother Coronary artery disease Myocardial infarction Stroke Diabetes mellitus Father Myocardial infarction <Regino Sauceda PA-C - Last Filed: 12/10/24 09:18> Surgical History Surgical History: Surgical History Tubal ligation status Previous section Hx laparoscopic cholecystectomy Hx of surgical procedure (~09/11/23) 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 <Regino Sauceda PA-C - Last Filed: 12/10/24 09:18> Social History Social History: Social History Household Members: Family and Children Household Members Other:: sister, brother, [id number] Housing: Apartment Housing Other:: Apartment, 1st floor Are you a primary home care and home health aides teacher to a significant other at home: No Do you presently have visiting nurse or other home services: No Alcohol intake: never Comment: Intermittently refuses Patient Tobacco Use Status: Never used Tobacco Smoked in Last 30 Days: No e-Cigarette/Vaping Use: Never Used Second Hand Smoke Exposure: No Use of substances other than those prescribed or required for medical reasons: No Advance Directives: Yes Advance Directives on File: Yes Advance Directives Date on File: 08/28/23 Nutrition Risks: No Nutritional Risk Patient : No service: No Current occupational status: unemployed and disabled Gender identity: Female <LEXA Gomez Last Filed: 12/10/24 09:18> Meds Allergies/Adverse reactions: Allergies Allergy/AdvReac Type Severity Reaction Status Date / Time gabapentin Allergy Severe Facial Verified 12/09/24 17:43 Swelling tramadol Allergy Severe Facial Verified 12/09/24 17:43 Swelling vancomycin Allergy Severe Anaphylaxis Verified 12/09/24 17:43 azithromycin (From Zithromax) Allergy Intermediate Hives Verified 12/09/24 17:43 morphine (MORPHINE) Allergy Intermediate Itching Verified 12/09/24 17:43 <LEXA Gomez Last Filed: 12/10/24 09:18> Active Medications: Current Medications Acetaminophen (Acetaminophen 325 Mg Tablet) 650 mg PO Q6H PRN PRN Reason: Pain, Mild 1-3,fever,headache Calcium Carbonate (Calcium Carbonate 750 Mg Tab.Chew) 750 mg PO Q4H PRN PRN Reason: Heartburn Dextrose (Dextrose 50 % 25 Gm/50 Ml Syringe) 25 gm IVPUSH Q15M PRN; Protocol PRN Reason: per Hypoglycemia Standing Ord. Glucose (Glucose Gel 15 Gm Gel..Gram.) 15 gm PO Q15M PRN; Protocol PRN Reason: per Hypoglycemia Standing Ord. Heparin Sodium (Porcine) (Heparin Sodium,Porcine 5,000 Unit/Ml Vial) 5,000 unit SUBCUT Q12H [facility]AS[facility] Hydromorphone HCl (Hydromorphone Hcl 0.5 Mg/0.5 Ml Syringe) 0.5 mg IVPUSH Q4H PRN; Protocol PRN Reason: Pain, Severe (Pain Scale 7-10) Last Admin: 12/10/24 04:52 Dose: 0.5 mg Cefepime HCl (Maxipime) 2 gm in 50 mls @ 100 mls/hr IV Q24H VASILE Vancomycin HCl 500 mg/ Sodium (Chloride) 110 mls @ 110 mls/hr IV ONCE ONE Stop: 12/10/24 07:44 Insulin Human Lispro (Insulin Lispro 100 Unit/Ml 3 Ml Vial) 0 unit SUBCUT QIDAS ON LICENSE OF [facility]; Protocol Last Admin: 12/10/24 07:57 Dose: Not Given Magnesium Hydroxide (Milk Of Magnesia 30 Ml Oral.Susp) 30 ml PO DAILY PRN PRN Reason: Constipation Melatonin (Melatonin 3 Mg Tablet) 6 mg PO BEDTIME PRN PRN Reason: Insomnia Ondansetron HCl (Ondansetron Hcl 4 Mg/2 Ml Vial) 4 mg IVPUSH Q6H PRN PRN Reason: Nausea and Vomiting Pharmacy Consult (Consult Rx Vancomycin Dosing) 1 each MISCELLANE DAILY PRN PRN Reason: Consult order Sodium Chloride (0.9 % Sodium Chloride Flush 3 Ml Syringe) 3 ml IVFLUSH [facility] <Regino Sauceda PA-C - Last Filed: 12/10/24 09:18> Home medications: Home Medications ?Medication ?Instructions ?Recorded ?Confirmed ?Last Taken ?Type albuterol sulfate 90 mcg/actuation 2 puff inhalation Q 6H PRN wheezing 01/15/24 12/10/24 12/09/24 History aerosol inhaler (Ventolin HFA) lidocaine 5 % topical patch 1 patch topical DAILY PRN Pain 01/15/24 12/10/24 12/09/24 History nitroglycerin 0.4 mg sublingual 0.4 mg sublingual D IRECTED PRN 01/15/24 12/10/24 12/09/24 History tablet Angina acetaminophen 325 mg tablet 650 mg PO Q4H PRN mild jamar n 03/11/24 12/10/24 12/09/24 History calcium carbonate (Tums) 200 mg PO TIDWM PRN Acid Ref lux 07/03/24 12/10/24 12/09/24 History <Regino Sauceda PA-C - Last Filed: 12/10/24 09:18> Physical Exam 2 Vital Signs: Vital Signs: Last Vital Signs Temp 97.9 F 12/10/24 00:01 Pulse 91 12/10/24 04:48 Resp 16 12/10/24 04:48 BP 165/83 H 12/10/24 04:48 Pulse Ox 99 12/10/24 04:48 O2 Del Method Nasal Cannula 12/10/24 04:48 O2 Flow Rate 2 12/10/24 04:48 BMI result Body Mass Index 31.4 <LEXA Gomez Last Filed: 12/10/24 09:18> Const: General: comfortable and no acute distress <LEXA Gomez Last Filed: 12/10/24 09:18> Orientation/consciousness: patient oriented x3 <LEXA Gomez Last Filed: 12/10/24 09:18> Neuro: General: patient oriented x3 <LEXA Gomez Last Filed: 12/10/24 09:18> Extrem: Other: Left foot: 2.5x2.5 cm open ulcer on the lateral aspect of the left foot. Scant purulent drainage. Exquisitely tender to light palpation. Left TMA Right foot: Dry stable wound on the medial aspect of the distal end of the remaining right foot. Right TMA <LEXA Gomez Last Filed: 12/10/24 09:18> Results Labs Result diagrams: 12/10/24 04:29 12/10/24 04:29 <LEXA Gomez Last Filed: 12/10/24 09:18> Labs: Abnormal lab results 12/09/24 12/09/24 12/10/24 Range/Units 19:08 23:42 04:29 RBC 3.52 L D 3.15 L (4.20-5.50) X10*6/uL Hgb 10.6 L D 9.8 L (12.0-16.0) g/dl Hct 33.5 L D 30.0 L (37.0-47.0) % Plt Count 117 L 104 L (160-400) X10*3/uL MPV 12.5 H (9.4-12.3) fL Immature Gran % (Auto) 0.6 H (0.0-0.4) % Neut % (Auto) 75.5 H 75.8 H (45-73) % Lymph % (Auto) 10.0 L 9.5 L (20-40) % [place] % (Auto) 11.7 H (2-11) % Lymph # (Auto) 0.6 L 0.7 L (1.2-4.9) X10*3/uL Abs Immat Gran (auto) 0.04 H (0.00-0.03) X10*3/uL ESR 67 H (0-20) MM/HR PT 12.7 H (10.9-12.4) SEC Potassium 5.6 H D (3.3-5.1) mmol/L Carbon Dioxide 32 H (22-29) mmol/L Anion Gap 21 H (12-20) BUN 39 H 53 H (9-16) mg/dL Creatinine 8.15 H* 9.45 H* (0.5-1.4) mg/dL Random Glucose 214 H 132 H (60-115) mg/dL Calcium 8.3 L D 7.6 L D (8.4-10.2) mg/dL Phosphorus 7.4 H (2.7-4.5) mg/dL Alkaline Phosphatase 139 H (39-117) U/L Troponin I High Sens 63.4 H* D (<3.5-17.0) ng/L C-Reactive Protein 0.98 H 0.99 H (< or = 0.50) mg/dL Total Protein 8.2 H (6.5-8.0) g/dL Short CBC 12/09/24 12/10/24 Range/Units 19:08 04:29 WBC 5.6 7.2 (4.8-10.8) X10*3/uL Hgb 10.6 L D 9.8 L (12.0-16.0) g/dl Hct 33.5 L D 30.0 L (37.0-47.0) % Plt Count 117 L 104 L (160-400) X10*3/uL BMP 12/09/24 12/10/24 19:08 04:29 Sodium 141 143 Potassium 4.3 5.6 H D Chloride 99 103 Carbon Dioxide 32 H 25 BUN 39 H 53 H Creatinine 8.15 H* 9.45 H* Calcium 8.3 L D 7.6 L D Liver Function 12/09/24 Range/Units 19:08 Total Bilirubin 0.8 (0.0-1.0) mg/dL Direct Bilirubin 0.3 (0.0-0.5) mg/dL AST 21 (5-31) U/L ALT 11 (0-31) U/L Alkaline Phosphatase 139 H (39-117) U/L Albumin 4.2 (3.5-5.0) g/dL All other labs normal. <Regino Sauceda PA-C - Last Filed: 12/10/24 09:18> Assessment and Plan (1) Acute osteomyelitis of left foot: Status: Acute <Regino Sauceda PA-C - Last Filed: 12/10/24 09:18> She is well known to me for ulcers on the feet She describes left foot pain mostly in the lateral aspect Exam shows an ulcer in the mid foot serially, about 2 cm in diameter X-ray suggest bone erosion consistent osteomyelitis Awaiting MRI Possible long-term IV antibiotics versus amputation Dressings changed We will follow Seen and examined independently <Tu Rajput MD - Last Filed: 12/10/24 12:00> 34 year old female with a complicated medical history inclduing ESRD on dialysis, PAD, MS. She is well known to our service, Recently had debridement of the plantar aspect of the left foot on 11/05/24 seen in consult for left foot wound. Patient is experiencing increased pain on the lateral aspect of the left foot for 4 days. Additionally has had some purulent drainage from this area. She had a x-ray in the ED suggestive of osteomyelitis, with new degenerative changes on the 5th metatarsal. On exam there was a 2.5 x 2.5 cm open wound on the lateral aspect of the 5th metatarsal, exquisitely tender to palpation. There was scant purulent drainage from the area. This was dressed with gauze wrap with Kerlix and Izaiah bandage. Patient will need MRI to confirm diagnosis of osteomyelitis. If diagnosis confirmed, patient will likely need 6 weeks of antibiotics or BKA. She understands these options, we will wait for results of MRI to make a decision on the direction of our treatment. The right foot wound appears stable, dry. Not requiring intervention at this time. Daily wound care MRI left foot Continue IV antibiotics <Regino Sauceda PA-C - Last Filed: 12/10/24 09:18> Procedures Date of Service Date of Service: 12/10/24 <Regino Sauceda PA-C - Last Filed: 12/10/24 09:18> 12/10/24 <Tu Rajput MD - Last Filed: 12/10/24 12:00>
[2024-12-10] MEDS: 0.9 % Sodium Chloride Flush 3 ML SYRINGE IVFLUSH (08:56)
--- NOTE | 2024-12-10 09:02 | PC.NURSE ---
MRI screening sheet faxed to MRI.
--- NOTE | 2024-12-10 12:10 | MHC.CM.PN ---
Addendum entered by Vane Houston 12/10/24 12:34: PER [facility], PATIENT IS NOT ACTIVE WITH THEIR AGENCY. Original Note: IMM GIVEN 12/10. THIS CM MET WITH PT, SHE STATES SHE LIVES AT HOME WITH HER SISTER. 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 FOR HD ON /SUN. DME: HOME O2 VIA [employer], WHEELCHAIR. HCP ON FILE AND VERIFIED. DCP: RETURN HOME/RESUME PREVIOUS SERVICES VIA BLS. PCP: DR. JAYSON CAMARA
[2024-12-10 13:35] LABS: Glucose, Whole Blood 88 mg/dL (60-115)
--- NOTE | 2024-12-10 15:07 | HO.WOUND ---
Wound Consult: Initial 34 yr old female admitted to [facility] [place] on 12/10/24- See progress notes and H&P for detailed history. Wound consult placed for bilateral feet. Patient agreeable to assessment and photo documentation. Patient known to wound care from previous admissions. Patient with chronic diabetic foot wounds with history of bilateral TMA. Now presents with worsening wound with pain and odor to left lateral foot. Patient see by general surgery, pending MRI prior to further intervention. Left Lateral foot - wound bed boggy with depth, unable to probe due to pain, surrounding with edema and erythema Left plantar foot Right foot Etiology: Diabetic foot ulcers Wound Bed: moist red Drainage / Odor: serosanguineous Edges: ? callused Adonay wound: ? No Induration, Fluctuance or Warmth noted Pain: yes Goals of Treatment: ? durafiber for drainage absorption Left heel- stable dry eschar Right anterior foot- resurfaced with scar tissue/dry skin Left anterior foot- resurfaced with dry skin hyper and hypopigmented skin Recommendations: 1. Turn and Reposition every 2 hours and as needed for patient comfort. Use pillows or wedges to support off loading positions. 2. Off Load all bony prominences with use of pillows and heel boots if needed. Apply Preventative foams where needed. 3. Monitor for incontinence and moisture control, use barrier creams when needed for prevention and treatment. 4. Provide adequate and supplemental nutrition. 5. Order or Continue low air loss mattress. 6. When applicable maintain blood glucose levels per Providers order. Right foot, Left lateral foot, Left plantar foot: cleanse with saline, apply skin prep adonay wound, apply durafiber to wound bed, cover with ABD pad, wrap with kerlix, change daily and PRN (pending general surgery intervention for left foot) Left heel: paint with betadine daily and PRN Re-consult wound care Nurse for wound deterioration or wound changes.
[2024-12-10 19:03] LABS: Glucose, Whole Blood 139 mg/dL (60-115)
[2024-12-10 20:51] LABS: Glucose, Whole Blood 131 mg/dL (60-115)
[2024-12-10] MEDS: cefEPime HCl/D5W 2 GM/50 ML PIGGYBACK IV (23:11)
[2024-12-11 03:33] VITALS: BP 147/77; PULSE 89; RESP 18; TEMP 36.2; O2SAT 95
[2024-12-11 07:30] LABS: Glucose, Whole Blood 101 mg/dL (60-115)
[2024-12-11 07:36] VITALS: BP 195/97; PULSE 71; RESP 16; TEMP 36.4; O2SAT 97
[2024-12-11 07:41] VITALS: BP 195/97; PULSE 71; RESP 16; TEMP 36.4; O2SAT 97
[2024-12-11] MEDS: 0.9 % Sodium Chloride Flush 3 ML SYRINGE IVFLUSH ×2 (07:46)
[2024-12-11 09:39] VITALS: BP 172/90
[2024-12-11 11:27] LABS: Glucose, Whole Blood 113 mg/dL (60-115)
--- NOTE | 2024-12-11 13:59 | HO.PM.IMPN ---
Subjective Subjective Date of Service: 12/11/24 Interval History: No new complaints today. Plan is for MRI with and without IV contrast for the lower extremity followed by hemodialysis session. Surgery to evaluate the patient for need for amputation as inpatient versus outpatient. Discussion with infectious diseases yesterday confirming patient more likely presents with chronic osteomyelitis, and should opt for oral antibiotics to cover for cellulitis current Review of Systems Review of Systems: Yes all other systems are reviewed and are negative Physical Exam Exam: Exam: General: A&O x3, oriented to time place person and situation, comfortable, no pain, generalized itching. Right eye total blindness. Cardiac: S1, S2 auscultated with no S3/4, no MRG. Well perfused. Respiratory: Normal breath sounds auscultated throughout all lung zones, without wheezing, rales. Normal rate. GI/ : No abdominal pain on palpation, no masses or distentions. MSK: Normal ambulation without pain at bony prominences or musculature. Bilateral TMA Neurological: Normal neurological examination on overview, without obvious CN II-XII abnormalities. Vital Signs: Vital Signs: Last Vital Signs Temp 97.6 F 12/11/24 07:41 Pulse 71 12/11/24 07:41 Resp 16 12/11/24 07:41 BP 172/90 H 12/11/24 09:39 Pulse Ox 97 12/11/24 07:41 O2 Del Method Room Air 12/11/24 07:41 O2 Flow Rate 2 12/10/24 13:22 BMI result Body Mass Index 31.7 Objective Data Active Medications Acetaminophen (Acetaminophen 325 Mg Tablet) 650 mg PO Q6H PRN PRN Reason: Pain, Mild 1-3,fever,headache Calcium Carbonate (Calcium Carbonate 750 Mg Tab.Chew) 750 mg PO Q4H PRN PRN Reason: Heartburn Carvedilol (Carvedilol 12.5 Mg Tablet) 12.5 mg PO BID [facility]; Protocol Last Admin: 12/11/24 11:05 Dose: Not Given Documented By: KARLI Non-Admin Reason: Patient Refused Cyanocobalamin (Cyanocobalamin (Vitamin B-12) 100 Mcg Tablet) 100 mcg PO DAILY VASILE Last Admin: 12/11/24 11:05 Dose: Not Given Documented By: KARLI Non-Admin Reason: Patient Refused Dextrose (Dextrose 50 % 25 Gm/50 Ml Syringe) 25 gm IVPUSH Q15M PRN; Protocol PRN Reason: per Hypoglycemia Standing Ord. Diphenhydramine HCl (Diphenhydramine Hcl 50 Mg/Ml Vial) 12.5 mg IVPUSH Q6H PRN PRN Reason: Itching Last Admin: 12/11/24 13:42 Dose: 12.5 mg Documented By: KARLI Doxycycline Monohydrate (Doxycycline Monohydrate 100 Mg Capsule) 100 mg PO Q12H [facility] Last Admin: 12/11/24 11:05 Dose: Not Given Documented By: KARLI Non-Admin Reason: Patient Refused Folic Acid (Folic Acid 1 Mg Tablet) 1 mg PO DAILY [facility] Last Admin: 12/11/24 11:05 Dose: Not Given Documented By: KARLI Non-Admin Reason: Patient Refused Glucose (Glucose Gel 15 Gm Gel..Gram.) 15 gm PO Q15M PRN; Protocol PRN Reason: per Hypoglycemia Standing Ord. Heparin Sodium (Porcine) (Heparin Sodium,Porcine 5,000 Unit/Ml Vial) 5,000 unit SUBCUT Q12H [facility] Last Admin: 12/11/24 11:06 Dose: 5,000 unit Documented By: KARLI Hydralazine HCl (Hydralazine Hcl 50 Mg Tablet) 50 mg PO TID [facility]; Protocol Last Admin: 12/11/24 11:05 Dose: Not Given Documented By: KARLI Non-Admin Reason: Patient Refused Hydromorphone HCl (Hydromorphone Hcl 0.5 Mg/0.5 Ml Syringe) 0.5 mg IVPUSH Q4H PRN; Protocol PRN Reason: Pain, Severe (Pain Scale 7-10) Last Admin: 12/11/24 13:42 Dose: 0.5 mg Documented By: KARLI Insulin Human Lispro (Insulin Lispro 100 Unit/Ml 3 Ml Vial) 0 unit SUBCUT QIDACHS [facility]; Protocol Last Admin: 12/11/24 11:34 Dose: Not Given Documented By: KARLI Non-Admin Reason: No Insulin Coverage Magnesium Hydroxide (Milk Of Magnesia 30 Ml Oral.Susp) 30 ml PO DAILY PRN PRN Reason: Constipation Melatonin (Melatonin 3 Mg Tablet) 6 mg PO BEDTIME PRN PRN Reason: Insomnia Ondansetron HCl (Ondansetron Hcl 4 Mg/2 Ml Vial) 4 mg IVPUSH Q6H PRN PRN Reason: Nausea and Vomiting Last Admin: 12/11/24 13:42 Dose: 4 mg Documented By: KARLI Sodium Chloride (0.9 % Sodium Chloride Flush 3 Ml Syringe) 3 ml IVFLUSH QSHIFT [facility] Last Admin: 12/11/24 07:46 Dose: 3 ml Documented By: KARLI Thiamine HCl (Thiamine Hcl 100 Mg Tablet) 100 mg PO DAILY [facility] Last Admin: 12/11/24 11:06 Dose: Not Given Documented By: KARLI Non-Admin Reason: Patient Refused Labs 12/10/24 04:29 12/10/24 04:29 Labs: Laboratory Results - last 24 hr 12/10/24 12/10/24 12/11/24 18:52 20:45 07:24 POC Glucose 139 H 131 H 101 12/11/24 11:23 POC Glucose 113 Microbiology Microbiology Results: Microbiology 12/09/24 19:29 Blood Culture - Preliminary Blood - Venous No growth after 24 hours. 12/09/24 19:09 Blood Culture - Preliminary Blood - Venous No growth after 24 hours. Assessment and Plan (1) Noncompliance: Status: Acute (2) Opioid dependence: Status: Acute (3) PAD (peripheral artery disease): Status: Acute (4) DM foot ulcer: Status: Acute (5) Hypoglycemia: Status: Acute (6) Gastroparesis: Status: Acute (7) ESRD on dialysis: Status: Acute (8) Hyperkalemia: Status: Acute (9) Anemia: Status: Acute (10) Osteomyelitis: Status: Acute (11) Acute pain of left foot: Status: Acute (12) Cerebral microvascular disease: Status: Acute (13) Relapsing remitting multiple sclerosis: Status: Acute (14) Central pontine myelinolysis: Status: Acute Plan Shereen Taylor is a 34 y/o woman with a PMHx significant for PAD s/p bilateral TMA 2/2 osteomyelitis, ESRD HD TTS, chronic opioid addiction, T2 DM uncontrolled history of C diff, peripheral arterial disease, HFrEF, relapsing remitting multiple sclerosis versus central pontine myelinolysis, chronic anemia, who presents with worsening left foot pain, admitted with osteomyelitis and purulent cellulitis of the left lower extremity. Left lower extremity osteomyelitis-suspected acute versus chronic Left lower extremity purulent cellulitis Bilateral lower extremity TMA Left foot would infection associated with possible 5th metatarsal base osteomyelitis; recent debridement. Patient was placed on IV antibiotics with cefepime and vancomycin. These were discontinued, as per discussion with Infectious diseases, thought to be 2/2 chronic osteomyelitis, without evidence of hematological dissemination. Planned MRI of the left foot to be followed with hemodialysis. Pending results of MRI foot, surgery will consult and determine if the patient requires inpatient versus outpatient planned amputation. PLAN - ID recommendations appreciated - general surgery recommendations post MRI foot - continue doxycycline 100 mg b.i.d. p.o. - hold off further IV antibiotics ESRD HD TTS Diabetic nephropathy Has been compliant with hemodialysis. Planning hemodialysis session today post MRI foot Nephrology consulted for inpatient hemodialysis. Uncontrolled T2 DM BG checks before meals at bedtime. Insulin sliding scale. Diabetic diet. Essential hypertension Continue home meds. HFrEF Peripheral arterial disease No acute symptoms. Chronic hypoxia Continue supplemental oxygen. History of C diff Denied diarrhea - inactive currently Relapsing remitting multiple sclerosis Central pontine myelinolysis (possibly 2/2 significant electrolyte shifts No acute exacerbation currently Continue to monitor [employer] - VTE: Heparin 5000 t.i.d. SQ - CODE STATUS: Full code - DIET: Diabetic/ renal Total time managing care of this patient today: 45 minutes. Quality Stroke Does the patient have a stroke diagnosis?: No VTE Prior VTE?: No VTE Risk Level:: Medical - moderate - high VTE Device Contraindication: Treatment Not Indicated VTE Drug Contraindication: N/A - Med Ordered
[2024-12-11 17:30] VITALS: BP 126/80; PULSE 100; RESP 18; TEMP 37; O2SAT 93
[2024-12-11 17:32] LABS: Glucose, Whole Blood 77 mg/dL (60-115)
--- NOTE | 2024-12-11 18:55 | HE.PHANOTE ---
Vancomycin Vancomycin random post dialysis = 22.7. Holding dose. Will obtain next level post dialysis on sunday12/13/24
--- NOTE | 2024-12-11 19:24 | P.CONNP_ITS ---
History of Present Illness Reason for Consult Consult date: 12/11/24 Reason for consult: ESRD and HD Chief Complaint Chief complaint: Left Foot Infection History of Present Illness Narrative: RTANE consulted for ESRD and HD management In summary 34 y/o F ESRD TTS [facility] ( [phone]) and H/O PAD s/p bilateral TMA 2/2 osteomyelitis, chronic opioid addiction, T2 DM uncontrolled history of C diff, peripheral arterial disease, HFrEF, relapsing remitting multiple sclerosis, chronic anemia, who presents with worsening left foot pain, admitted with osteomyelitis and purulent cellulitis of the left lower extremity. Review of Systems Review of Systems as per HPI, full review of systems performed and negative but for the above mentioned pertinent positives and negatives. Yes all other systems are reviewed and are negative PMFSH Past Medical History Medical History Multiple sclerosis Cerebral infarction Hyperkalemia ESRD on dialysis Hypoxia End stage renal disease on dialysis Chronic ulcer of right foot due to diabetes mellitus Chronic ulcer of left foot due to diabetes mellitus DM foot ulcer ESRD on hemodialysis Hypotonic neurogenic bladder Diabetic polyneuropathy Hypertensive emergency Decompensated heart failure Renal failure Hypertension, uncontrolled Medical non-compliance Pericarditis Unspecified hypertension, condition or complication Metabolic acidosis Gastroparesis End stage chronic kidney disease Chronic kidney disease Anemia Plantar ulcer of left foot MDD (major depressive disorder) CKD (chronic kidney disease) Hypertension Vomiting Chronic pain Non-compliance with renal dialysis End-stage renal disease (ESRD) Diabetic foot ulcer associated with type 2 diabetes mellitus Cardiomyopathy HFrEF (heart failure with reduced ejection fraction) delivery delivered Anemia in chronic kidney disease (CKD) CKD (chronic kidney disease) Abnormal finding on echocardiogram Elevated troponin Acute worsening of stage 3 chronic kidney disease Generalized edema Sepsis Cellulitis Pleural effusion Atypical chest pain Bone infection PAD (peripheral artery disease) Cellulitis and abscess of foot Osteomyelitis Asthma Depression with anxiety Diabetic retinopathy Blind right eye Diabetes Back pain Family History Family History Mother Coronary artery disease Myocardial infarction Stroke Diabetes mellitus Father Myocardial infarction Surgical History Surgical History Tubal ligation status Previous section Hx laparoscopic cholecystectomy Hx of surgical procedure (~09/11/23) 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 Social History Social History Household Members: Family and Caregiver Household Members Other:: sister, brother, [id number] Housing: Apartment Housing Other:: Apartment, 1st floor Are you a primary healthcare insurance sales agent to a significant other at home: No Do you presently have visiting nurse or other home services: No Alcohol intake: never Comment: Intermittently refuses Patient Tobacco Use Status: Never used Tobacco e-Cigarette/Vaping Use: Never Used Second Hand Smoke Exposure: No Advance Directives Date on File: 08/28/23 service: No Current occupational status: unemployed and disabled Gender identity: Female Meds Allergies Allergy/AdvReac Type Severity Reaction Status Date / Time gabapentin Allergy Severe Facial Verified 12/09/24 17:43 Swelling tramadol Allergy Severe Facial Verified 12/09/24 17:43 Swelling azithromycin (From Zithromax) Allergy Intermediate Hives Verified 12/09/24 17:43 morphine (MORPHINE) Allergy Intermediate Itching Verified 12/09/24 17:43 Active Medications: Current Medications Acetaminophen (Acetaminophen 325 Mg Tablet) 650 mg PO Q6H PRN PRN Reason: Pain, Mild 1-3,fever,headache Calcium Carbonate (Calcium Carbonate 750 Mg Tab.Chew) 750 mg PO Q4H PRN PRN Reason: Heartburn Carvedilol (Carvedilol 12.5 Mg Tablet) 12.5 mg PO BID [facility]; Protocol Last Admin: 12/11/24 11:05 Dose: Not Given Cyanocobalamin (Cyanocobalamin (Vitamin B-12) 100 Mcg Tablet) 100 mcg PO DAILY [facility] Last Admin: 12/11/24 11:05 Dose: Not Given Dextrose (Dextrose 50 % 25 Gm/50 Ml Syringe) 25 gm IVPUSH Q15M PRN; Protocol PRN Reason: per Hypoglycemia Standing Ord. Diphenhydramine HCl (Diphenhydramine Hcl 50 Mg/Ml Vial) 12.5 mg IVPUSH Q6H PRN PRN Reason: Itching Last Admin: 12/11/24 13:42 Dose: 12.5 mg Doxycycline Monohydrate (Doxycycline Monohydrate 100 Mg Capsule) 100 mg PO Q12H [facility] Last Admin: 12/11/24 11:05 Dose: Not Given Folic Acid (Folic Acid 1 Mg Tablet) 1 mg PO DAILY [facility] Last Admin: 12/11/24 11:05 Dose: Not Given Glucose (Glucose Gel 15 Gm Gel..Gram.) 15 gm PO Q15M PRN; Protocol PRN Reason: per Hypoglycemia Standing Ord. Heparin Sodium (Porcine) (Heparin Sodium,Porcine 5,000 Unit/Ml Vial) 5,000 unit SUBCUT Q12H [facility] Last Admin: 12/11/24 11:06 Dose: 5,000 unit Hydralazine HCl (Hydralazine Hcl 50 Mg Tablet) 50 mg PO TID [facility]; Protocol Last Admin: 12/11/24 17:54 Dose: Not Given Hydromorphone HCl (Hydromorphone Hcl 0.5 Mg/0.5 Ml Syringe) 0.5 mg IVPUSH Q4H PRN; Protocol PRN Reason: Pain, Severe (Pain Scale 7-10) Last Admin: 12/11/24 18:02 Dose: 0.5 mg Insulin Human Lispro (Insulin Lispro 100 Unit/Ml 3 Ml Vial) 0 unit SUBCUT QIDACHS [facility]; Protocol Last Admin: 12/11/24 17:43 Dose: Not Given Magnesium Hydroxide (Milk Of Magnesia 30 Ml Oral.Susp) 30 ml PO DAILY PRN PRN Reason: Constipation Melatonin (Melatonin 3 Mg Tablet) 6 mg PO BEDTIME PRN PRN Reason: Insomnia Metoclopramide HCl (Metoclopramide Hcl 10 Mg/2 Ml Vial) 5 mg IVPUSH Q6H PRN PRN Reason: Nausea Last Admin: 12/11/24 18:01 Dose: 5 mg Ondansetron HCl (Ondansetron Hcl 4 Mg/2 Ml Vial) 4 mg IVPUSH Q6H PRN PRN Reason: Nausea and Vomiting Last Admin: 12/11/24 13:42 Dose: 4 mg Sodium Chloride (0.9 % Sodium Chloride Flush 3 Ml Syringe) 3 ml IVFLUSH QSHIFT [facility] Last Admin: 12/11/24 17:54 Dose: Not Given Thiamine HCl (Thiamine Hcl 100 Mg Tablet) 100 mg PO DAILY [facility] Last Admin: 12/11/24 11:06 Dose: Not Given Home Medications ?Medication ?Instructions ?Recorded ?Confirmed ?Last Taken ?Type albuterol sulfate 90 mcg/actuation 2 puff inhalation Q 6H PRN wheezing 01/15/24 12/10/24 12/09/24 History aerosol inhaler (Ventolin HFA) lidocaine 5 % topical patch 1 patch topical DAILY PRN Pain 01/15/24 12/10/24 12/09/24 History nitroglycerin 0.4 mg sublingual 0.4 mg sublingual D IRECTED PRN 01/15/24 12/10/24 12/09/24 History tablet Angina acetaminophen 325 mg tablet 650 mg PO Q4H PRN mild jamar n 03/11/24 12/10/24 12/09/24 History calcium carbonate (Tums) 200 mg PO TIDWM PRN Acid Ref lux 07/03/24 12/10/24 12/09/24 History Physical Exam Vital Signs: Last Vital Signs Temp 98.6 F 12/11/24 17:30 Pulse 100 12/11/24 17:30 Resp 18 12/11/24 17:30 BP 126/80 12/11/24 17:30 Pulse Ox 93 12/11/24 17:30 O2 Del Method Room Air 12/11/24 17:30 O2 Flow Rate 2 12/10/24 13:22 BMI result Body Mass Index 31.7 Const General: comfortable and no acute distress Orientation/consciousness: patient oriented x3 Neuro General: patient oriented x3 Extrem Other: Left foot: 2.5x2.5 cm open ulcer on the lateral aspect of the left foot. Scant purulent drainage. Exquisitely tender to light palpation. Left TMA Right foot: Dry stable wound on the medial aspect of the distal end of the remaining right foot. Right TMA Results Lab Results 12/10/24 04:29 12/10/24 04:29 Lab results: Chemistry 12/09/24 12/10/24 19:08 04:29 Sodium 141 143 Potassium 4.3 5.6 H D Carbon Dioxide 32 H 25 BUN 39 H 53 H Creatinine 8.15 H* 9.45 H* Calcium 8.3 L D 7.6 L D Phosphorus 7.4 H Hematology 12/09/24 12/10/24 19:08 04:29 WBC 5.6 7.2 Hgb 10.6 L D 9.8 L Plt Count 117 L 104 L Assessment and Plan (1) Noncompliance: Status: Acute (2) Opioid dependence: Status: Acute (3) PAD (peripheral artery disease): Status: Acute (4) DM foot ulcer: Qualifiers: Diabetes mellitus type: due to underlying condition Diabetic foot ulcer location: midfoot Laterality: left Non-pressure ulcer stage: unspecified non- pressure ulcer stage Qualified Code(s): E08.621 - Diabetes mellitus due to underlying condition with foot ulcer; L97.429 - Non-pressure chronic ulcer of left heel and midfoot with unspecified severity Status: Acute (5) Hypoglycemia: Status: Acute (6) Gastroparesis: Status: Acute (7) ESRD on dialysis: Status: Acute (8) Hyperkalemia: Status: Acute (9) Anemia: Status: Acute (10) Osteomyelitis: Qualifiers: Laterality: right Osteomyelitis location: foot Osteomyelitis type: u nspecified type Qualified Code(s): M86.9 - Osteomyelitis, unspecified Status: Acute (11) Acute pain of left foot: Status: Acute (12) Cerebral microvascular disease: Status: Acute (13) Relapsing remitting multiple sclerosis: Status: Acute (14) Central pontine myelinolysis: Status: Acute Plan ESRD: cont TTS HD Nephrogenic Anemia MBD of ESRD Recurrent OSteo: dx and Tx as noted by primary team REC: HD today after MRI, Abx as noted; cont routine meds will follow w team Procedures Date of Service Date of Service: 12/11/24
[2024-12-11 19:33] VITALS: BP 114/61; PULSE 92; RESP 18; TEMP 36.5; O2SAT 92
--- NOTE | 2024-12-11 20:02 | PC.NURSE ---
This RN assumed care of pt at 19:00. Patient states she can't take any PO meds because it makes her want to throw up. She was administered reglan before coming on shift and patient said that helps her but she still refuses to take all her bedtime medication since they are PO and not IV.
[2024-12-11 20:03] LABS: Glucose, Whole Blood 151 mg/dL (60-115)
[2024-12-12 03:44] VITALS: BP 134/62; PULSE 87; RESP 18; TEMP 36.3; O2SAT 96
[2024-12-12 07:47] VITALS: BP 169/79; PULSE 92; RESP 16; TEMP 36; O2SAT 96
[2024-12-12 07:58] LABS: Glucose, Whole Blood 98 mg/dL (60-115)
[2024-12-12] MEDS: 0.9 % Sodium Chloride Flush 3 ML SYRINGE IVFLUSH ×2 (08:19→15:22)
[2024-12-12 11:16] LABS: Glucose, Whole Blood 134 mg/dL (60-115)
--- NOTE | 2024-12-12 11:16 | W.PM.IDCN ---
History of Present Illness Data of Consult Service Date: 12/12/24 Requesting physician: Ellen Frankel Primary Care Provider: Genevieve Casillas MD HPI Reason for consult: left foot pain She presents with pain left foot for two days and no fever and chills. She had reported via cushion maker hand that she had green drainage from area but there is not any now. WBC is 7.2 and ESR 67. Review of Systems Review of Systems: Yes all other systems are reviewed and are negative [facility] Past Medical History Medical History Multiple sclerosis Cerebral infarction Hyperkalemia ESRD on dialysis Hypoxia End stage renal disease on dialysis Chronic ulcer of right foot due to diabetes mellitus Chronic ulcer of left foot due to diabetes mellitus DM foot ulcer ESRD on hemodialysis Hypotonic neurogenic bladder Diabetic polyneuropathy Hypertensive emergency Decompensated heart failure Renal failure Hypertension, uncontrolled Medical non-compliance Pericarditis Unspecified hypertension, condition or complication Metabolic acidosis Gastroparesis End stage chronic kidney disease Chronic kidney disease Anemia Plantar ulcer of left foot MDD (major depressive disorder) CKD (chronic kidney disease) Hypertension Vomiting Chronic pain Non-compliance with renal dialysis End-stage renal disease (ESRD) Diabetic foot ulcer associated with type 2 diabetes mellitus Cardiomyopathy HFrEF (heart failure with reduced ejection fraction) delivery delivered Anemia in chronic kidney disease (CKD) CKD (chronic kidney disease) Abnormal finding on echocardiogram Elevated troponin Acute worsening of stage 3 chronic kidney disease Generalized edema Sepsis Cellulitis Pleural effusion Atypical chest pain Bone infection PAD (peripheral artery disease) Cellulitis and abscess of foot Osteomyelitis Asthma Depression with anxiety Diabetic retinopathy Blind right eye Diabetes Back pain Family History Family History Mother Coronary artery disease Myocardial infarction Stroke Diabetes mellitus Father Myocardial infarction Surgical History Surgical History Tubal ligation status Previous section Hx laparoscopic cholecystectomy Hx of surgical procedure (~09/11/23) 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 Social History Social History Household Members: Family and Caregiver Household Members Other:: sister, brother, [id number] Housing: Apartment Housing Other:: Apartment, 1st floor Are you a primary critical care unit manager to a significant other at home: No Do you presently have visiting nurse or other home services: No Alcohol intake: never Comment: Intermittently refuses Patient Tobacco Use Status: Never used Tobacco e-Cigarette/Vaping Use: Never Used Second Hand Smoke Exposure: No Advance Directives Date on File: 08/28/23 service: No Current occupational status: unemployed and disabled Gender identity: Female Meds Allergies Allergy/AdvReac Type Severity Reaction Status Date / Time gabapentin Allergy Severe Facial Verified 12/09/24 17:43 Swelling tramadol Allergy Severe Facial Verified 12/09/24 17:43 Swelling azithromycin (From Zithromax) Allergy Intermediate Hives Verified 12/09/24 17:43 morphine (MORPHINE) Allergy Intermediate Itching Verified 12/09/24 17:43 Active Medications: Current Medications Acetaminophen (Acetaminophen 325 Mg Tablet) 650 mg PO Q6H PRN PRN Reason: Pain, Mild 1-3,fever,headache Calcium Carbonate (Calcium Carbonate 750 Mg Tab.Chew) 750 mg PO Q4H PRN PRN Reason: Heartburn Carvedilol (Carvedilol 12.5 Mg Tablet) 12.5 mg PO BID [facility]; Protocol Last Admin: 12/12/24 08:22 Dose: Not Given Cyanocobalamin (Cyanocobalamin (Vitamin B-12) 100 Mcg Tablet) 100 mcg PO DAILY [facility] Last Admin: 12/12/24 08:22 Dose: Not Given Dextrose (Dextrose 50 % 25 Gm/50 Ml Syringe) 25 gm IVPUSH Q15M PRN; Protocol PRN Reason: per Hypoglycemia Standing Ord. Diphenhydramine HCl (Diphenhydramine Hcl 50 Mg/Ml Vial) 12.5 mg IVPUSH Q6H PRN PRN Reason: Itching Last Admin: 12/12/24 08:17 Dose: 12.5 mg Doxycycline Monohydrate (Doxycycline Monohydrate 100 Mg Capsule) 100 mg PO Q12H [facility] Last Admin: 12/12/24 08:40 Dose: Not Given Folic Acid (Folic Acid 1 Mg Tablet) 1 mg PO DAILY [facility] Last Admin: 12/12/24 08:22 Dose: Not Given Glucose (Glucose Gel 15 Gm Gel..Gram.) 15 gm PO Q15M PRN; Protocol PRN Reason: per Hypoglycemia Standing Ord. Heparin Sodium (Porcine) (Heparin Sodium,Porcine 5,000 Unit/Ml Vial) 5,000 unit SUBCUT Q12H [facility] Last Admin: 12/12/24 09:31 Dose: Not Given Hydralazine HCl (Hydralazine Hcl 50 Mg Tablet) 50 mg PO TID [facility]; Protocol Last Admin: 12/12/24 08:22 Dose: Not Given Hydromorphone HCl (Hydromorphone Hcl 0.5 Mg/0.5 Ml Syringe) 0.5 mg IVPUSH Q4H PRN; Protocol PRN Reason: Pain, Severe (Pain Scale 7-10) Last Admin: 12/12/24 10:27 Dose: 0.5 mg Insulin Human Lispro (Insulin Lispro 100 Unit/Ml 3 Ml Vial) 0 unit SUBCUT QIDACHS [facility]; Protocol Last Admin: 12/12/24 08:20 Dose: Not Given Magnesium Hydroxide (Milk Of Magnesia 30 Ml Oral.Susp) 30 ml PO DAILY PRN PRN Reason: Constipation Melatonin (Melatonin 3 Mg Tablet) 6 mg PO BEDTIME PRN PRN Reason: Insomnia Metoclopramide HCl (Metoclopramide Hcl 10 Mg/2 Ml Vial) 5 mg IVPUSH Q6H PRN PRN Reason: Nausea Last Admin: 12/11/24 18:01 Dose: 5 mg Ondansetron HCl (Ondansetron Hcl 4 Mg/2 Ml Vial) 4 mg IVPUSH Q6H PRN PRN Reason: Nausea and Vomiting Last Admin: 12/11/24 13:42 Dose: 4 mg Sodium Chloride (0.9 % Sodium Chloride Flush 3 Ml Syringe) 3 ml IVFLUSH QSHIFT [facility] Last Admin: 12/12/24 08:19 Dose: 3 ml Thiamine HCl (Thiamine Hcl 100 Mg Tablet) 100 mg PO DAILY [facility] Last Admin: 12/12/24 08:22 Dose: Not Given Home Medications ?Medication ?Instructions ?Recorded ?Confirmed ?Last Taken ?Type albuterol sulfate 90 mcg/actuation 2 puff inhalation Q6H PRN wheezing 01/15/24 12/10/24 12/09/24 History aerosol inhaler (Ventolin HFA) lidocaine 5 % topical patch 1 patch topical DAILY PRN Pain 01/15/24 12/10/24 12/09/24 History nitroglycerin 0.4 mg sublingual 0.4 mg sublingual DIRECTED PRN 01/15/24 12/10/24 12/09/24 History tablet Angina acetaminophen 325 mg tablet 650 mg PO Q4H PRN mild pain 03/11/24 12/10/24 12/09/24 History calcium carbonate (Tums) 200 mg PO TIDWM PRN Acid Reflux 07/03/24 12/10/24 12/09/24 History Physical Exam Exam: Exam: Vital Signs: Vital Signs: Last Vital Signs Temp 96.8 F 12/12/24 07:47 Pulse 92 12/12/24 07:47 Resp 16 12/12/24 07:47 BP 169/79 H 12/12/24 07:47 Pulse Ox 96 12/12/24 07:47 O2 Del Method Room Air 12/12/24 07:47 O2 Flow Rate 2 12/10/24 13:22 BMI result Body Mass Index 31.7 Const: General: cooperative HEENT: Head: Yes normal to inspection Face and sinus: Yes normal facial exam Mouth: Normal oral and palatal mucosa present Teeth and gingiva: dentition normal Eyes: Other: blindness Pupils: Equal, round and reactive pupils present Resp: Effort & Inspection: normal respiratory effort Cardio: Rate: regular rate Rhythm: regular rhythm GI: Palpation (GI): Soft to palpation and nontender : General: Yes no CVA tenderness Back/Spine/Pelvis: Back: no CVA tenderness Skin: General skin exam: no rashes or lesions noted Neuro: General: moves all extremities Cranial nerves: Yes Equal, round and reactive pupils present Extrem: Other: per picture no cellulitis or purulence at all Psych: Appearance: grossly normal Results Labs 12/10/24 04:29 12/10/24 04:29 Microbiology Microbiology Results: Microbiology 12/09/24 19:29 Blood - Venous Blood Culture - Preliminary No growth after 48 hours. 12/09/24 19:09 Blood - Venous Blood Culture - Preliminary No growth after 48 hours. Assessment and Plan (1) DM foot ulcer: Qualifiers: Diabetic foot ulcer location: midfoot Diabetes mellitus type: due to underlying condition Laterality: left Non-pressure ulcer stage: unspecified non-pressure ulcer stage Qualified Code(s): E08.621 - Diabetes mellitus due to underlying condition with foot ulcer; L97.429 - Non-pressure chronic ulcer of left heel and midfoot with unspecified severity Status: Acute (2) ESRD on dialysis: Status: Acute (3) Osteomyelitis: Qualifiers: Laterality: right Osteomyelitis location: foot Osteomyelitis type: unspecified type Qualified Code(s): M86.9 - Osteomyelitis, unspecified Status: Acute Plan She has chronic OM There is resolving acute infection Plan po Doxycycline 100mg bid for two weeks.
--- NOTE | 2024-12-12 11:58 | PM.PNGS ---
Subjective Subjective Date of Service: 12/12/24 Interval history: soem improvement in pain, she attributes this to pain medication, as they wear off the pain returns. Physical Exam Vital Signs: Vital Signs: Last Vital Signs Temp 96.8 F 12/12/24 07:47 Pulse 92 12/12/24 07:47 Resp 16 12/12/24 07:47 BP 169/79 H 12/12/24 07:47 Pulse Ox 96 12/12/24 07:47 O2 Del Method Room Air 12/12/24 07:47 O2 Flow Rate 2 12/10/24 13:22 BMI result Body Mass Index 31.7 Const: General: comfortable and no acute distress Orientation/consciousness: patient oriented x3 Neuro: General: patient oriented x3 Extrem: Other: Left foot: 2.5x2.5 cm open ulcer on the lateral aspect of the left foot. Scant purulent drainage. Exquisitely tender to light palpation. Left TMA. Further images of wounds can be seen in wound care note Right foot: Dry stable wound on the medial aspect of the distal end of the remaining right foot. Right TMA Objective Data Active Medications Acetaminophen (Acetaminophen 325 Mg Tablet) 650 mg PO Q6H PRN PRN Reason: Pain, Mild 1-3,fever,headache Calcium Carbonate (Calcium Carbonate 750 Mg Tab.Chew) 750 mg PO Q4H PRN PRN Reason: Heartburn Carvedilol (Carvedilol 12.5 Mg Tablet) 12.5 mg PO BID [facility]; Protocol Last Admin: 12/12/24 08:22 Dose: Not Given Documented By: JENNY Non-Admin Reason: Patient Refused Cyanocobalamin (Cyanocobalamin (Vitamin B-12) 100 Mcg Tablet) 100 mcg PO DAILY [facility] Last Admin: 12/12/24 08:22 Dose: Not Given Documented By: JENNY Non-Admin Reason: Patient Refused Dextrose (Dextrose 50 % 25 Gm/50 Ml Syringe) 25 gm IVPUSH Q15M PRN; Protocol PRN Reason: per Hypoglycemia Standing Ord. Diphenhydramine HCl (Diphenhydramine Hcl 50 Mg/Ml Vial) 12.5 mg IVPUSH Q6H PRN PRN Reason: Itching Last Admin: 12/12/24 08:17 Dose: 12.5 mg Documented By: JENNY Doxycycline Monohydrate (Doxycycline Monohydrate 100 Mg Capsule) 100 mg PO Q12H [facility] Last Admin: 12/12/24 08:40 Dose: Not Given Documented By: JENNY Non-Admin Reason: Patient Refused Folic Acid (Folic Acid 1 Mg Tablet) 1 mg PO DAILY [facility] Last Admin: 12/12/24 08:22 Dose: Not Given Documented By: JENNY Non-Admin Reason: Patient Refused Glucose (Glucose Gel 15 Gm Gel..Gram.) 15 gm PO Q15M PRN; Protocol PRN Reason: per Hypoglycemia Standing Ord. Heparin Sodium (Porcine) (Heparin Sodium,Porcine 5,000 Unit/Ml Vial) 5,000 unit SUBCUT Q12H [facility] Last Admin: 12/12/24 09:31 Dose: Not Given Documented By: JENNY Non-Admin Reason: Patient Refused Hydralazine HCl (Hydralazine Hcl 50 Mg Tablet) 50 mg PO TID [facility]; Protocol Last Admin: 12/12/24 08:22 Dose: Not Given Documented By: JENNY Non-Admin Reason: Patient Refused Hydromorphone HCl (Hydromorphone Hcl 0.5 Mg/0.5 Ml Syringe) 0.5 mg IVPUSH Q4H PRN; Protocol PRN Reason: Pain, Severe (Pain Scale 7-10) Last Admin: 12/12/24 10:27 Dose: 0.5 mg Documented By: JENNY Insulin Human Lispro (Insulin Lispro 100 Unit/Ml 3 Ml Vial) 0 unit SUBCUT QIDACHS [facility]; Protocol Last Admin: 12/12/24 11:33 Dose: Not Given Documented By: JENNY Non-Admin Reason: No Insulin Coverage Magnesium Hydroxide (Milk Of Magnesia 30 Ml Oral.Susp) 30 ml PO DAILY PRN PRN Reason: Constipation Melatonin (Melatonin 3 Mg Tablet) 6 mg PO BEDTIME PRN PRN Reason: Insomnia Metoclopramide HCl (Metoclopramide Hcl 10 Mg/2 Ml Vial) 5 mg IVPUSH Q6H PRN PRN Reason: Nausea Last Admin: 12/11/24 18:01 Dose: 5 mg Documented By: BELINDA Ondansetron HCl (Ondansetron Hcl 4 Mg/2 Ml Vial) 4 mg IVPUSH Q6H PRN PRN Reason: Nausea and Vomiting Last Admin: 12/11/24 13:42 Dose: 4 mg Documented By: KARLI Sodium Chloride (0.9 % Sodium Chloride Flush 3 Ml Syringe) 3 ml IVFLUSH QSHIFT [facility] Last Admin: 12/12/24 08:19 Dose: 3 ml Documented By: JENNY Thiamine HCl (Thiamine Hcl 100 Mg Tablet) 100 mg PO DAILY [facility] Last Admin: 12/12/24 08:22 Dose: Not Given Documented By: JENNY Non-Admin Reason: Patient Refused Labs 12/10/24 04:29 12/10/24 04:29 Labs: Laboratory Results - last 24 hr 12/11/24 12/11/24 12/11/24 17:27 18:19 19:59 POC Glucose 77 151 H Vancomycin Trough 22.7 H 12/12/24 12/12/24 07:50 11:13 POC Glucose 98 134 H Vancomycin Trough Microbiology Microbiology Results: Microbiology 12/09/24 19:29 Blood Culture - Preliminary Blood - Venous No growth after 48 hours. 12/09/24 19:09 Blood Culture - Preliminary Blood - Venous No growth after 48 hours. Procedures Date of Service Date of Service: 12/12/24 Progress Note: A&P Assessment and plan (1) DM foot ulcer: Status: Acute Plan 34 year old female with a complicated medical history including ESRD on dialysis, PAD, MS. She is well known to our service, Recently had debridement of the plantar aspect of the left foot on 11/05/24 seen in consult for left foot wound. Patient has continued pain, controlled with medication. MRI highly suscpicious for OM of the proximal fifth metatarsal. Possible phlegmon vs abscess formation along the lateral aspect. On exam there was a 2.5 x 2.5 cm open wound on the lateral aspect of the 5th metatarsal, exquisitely tender to palpation. There was scant purulent drainage from the area. I discussed this case with the wound care nurse Chel who noted some bogginess on the lateral left foot which may represent the collection seen on MRI, however was unable to probe this area due to pain. She recommended durafiber, daily dressing changes. For now would recommend continuing with IV abx for 6 weeks. 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 The right foot wound care per wound recommendations. Will continue to follow during this admission. Daily wound care per wound recommendations Continue IV antibiotics for 6 weeks per ID Time Spent With Patient Time: Total time managing care of this patient today ____ minutes. Quality Stroke Does the patient have a stroke diagnosis?: No VTE Prior VTE?: No VTE Risk Level:: Medical - moderate - high VTE Device Contraindication: Treatment Not Indicated VTE Drug Contraindication: N/A - Med Ordered
--- NOTE | 2024-12-12 14:17 | P.PNIM_ITS ---
Subjective Subjective Date of Service: 12/12/24 Interval History: Results of MRI returned, revealing evidence of cellulitis, myositis, possible abscess with draining sinus and evidence of osteomyelitis. Infectious diseases has been assisting with plan. Surgery pending possible inpatient versus outpatient amputation. Review of Systems Review of Systems: Yes all other systems are reviewed and are negative Physical Exam 2 Exam: Exam: General: A&O x3, oriented to time place person and situation, comfortable, no pain, generalized itching. Right eye total blindness. Cardiac: S1, S2 auscultated with no S3/4, no MRG. Well perfused. Respiratory: Normal breath sounds auscultated throughout all lung zones, without wheezing, rales. Normal rate. GI/ : No abdominal pain on palpation, no masses or distentions. MSK: Normal ambulation without pain at bony prominences or musculature. Bilateral TMA - bilateral plantar lesions without discharge, swollen, no eryrthema Neurological: Normal neurological examination on overview, without obvious CN II-XII abnormalities. Vital Signs: Vital Signs: Last Vital Signs Temp 96.8 F 12/12/24 07:47 Pulse 92 12/12/24 07:47 Resp 16 12/12/24 07:47 BP 169/79 H 12/12/24 07:47 Pulse Ox 96 12/12/24 07:47 O2 Del Method Room Air 12/12/24 07:47 O2 Flow Rate 2 12/10/24 13:22 BMI result Body Mass Index 31.7 Objective Data Active Medications Acetaminophen (Acetaminophen 325 Mg Tablet) 650 mg PO Q6H PRN PRN Reason: Pain, Mild 1-3,fever,headache Calcium Carbonate (Calcium Carbonate 750 Mg Tab.Chew) 750 mg PO Q4H PRN PRN Reason: Heartburn Carvedilol (Carvedilol 12.5 Mg Tablet) 12.5 mg PO BID [facility]; Protocol Last Admin: 12/12/24 08:22 Dose: Not Given Documented By: JENNY Non-Admin Reason: Patient Refused Cyanocobalamin (Cyanocobalamin (Vitamin B-12) 100 Mcg Tablet) 100 mcg PO DAILY [facility] Last Admin: 12/12/24 08:22 Dose: Not Given Documented By: JENNY Non-Admin Reason: Patient Refused Dextrose (Dextrose 50 % 25 Gm/50 Ml Syringe) 25 gm IVPUSH Q15M PRN; Protocol PRN Reason: per Hypoglycemia Standing Ord. Diphenhydramine HCl (Diphenhydramine Hcl 50 Mg/Ml Vial) 12.5 mg IVPUSH Q6H PRN PRN Reason: Itching Last Admin: 12/12/24 08:17 Dose: 12.5 mg Documented By: JENNY Doxycycline Monohydrate (Doxycycline Monohydrate 100 Mg Capsule) 100 mg PO Q12H [facility] Last Admin: 12/12/24 08:40 Dose: Not Given Documented By: JENNY Non-Admin Reason: Patient Refused Folic Acid (Folic Acid 1 Mg Tablet) 1 mg PO DAILY [facility] Last Admin: 12/12/24 08:22 Dose: Not Given Documented By: JENNY Non-Admin Reason: Patient Refused Glucose (Glucose Gel 15 Gm Gel..Gram.) 15 gm PO Q15M PRN; Protocol PRN Reason: per Hypoglycemia Standing Ord. Heparin Sodium (Porcine) (Heparin Sodium,Porcine 5,000 Unit/Ml Vial) 5,000 unit SUBCUT Q12H [facility] Last Admin: 12/12/24 09:31 Dose: Not Given Documented By: JENNY Non-Admin Reason: Patient Refused Hydralazine HCl (Hydralazine Hcl 50 Mg Tablet) 50 mg PO TID [facility]; Protocol Last Admin: 12/12/24 08:22 Dose: Not Given Documented By: JENNY Non-Admin Reason: Patient Refused Hydromorphone HCl (Hydromorphone Hcl 0.5 Mg/0.5 Ml Syringe) 0.5 mg IVPUSH Q4H PRN; Protocol PRN Reason: Pain, Severe (Pain Scale 7-10) Last Admin: 12/12/24 10:27 Dose: 0.5 mg Documented By: JENNY Insulin Human Lispro (Insulin Lispro 100 Unit/Ml 3 Ml Vial) 0 unit SUBCUT QIDACHS [facility]; Protocol Last Admin: 12/12/24 11:33 Dose: Not Given Documented By: JENNY Non-Admin Reason: No Insulin Coverage Magnesium Hydroxide (Milk Of Magnesia 30 Ml Oral.Susp) 30 ml PO DAILY PRN PRN Reason: Constipation Melatonin (Melatonin 3 Mg Tablet) 6 mg PO BEDTIME PRN PRN Reason: Insomnia Metoclopramide HCl (Metoclopramide Hcl 10 Mg/2 Ml Vial) 5 mg IVPUSH Q6H PRN PRN Reason: Nausea Last Admin: 12/11/24 18:01 Dose: 5 mg Documented By: BELINDA Ondansetron HCl (Ondansetron Hcl 4 Mg/2 Ml Vial) 4 mg IVPUSH Q6H PRN PRN Reason: Nausea and Vomiting Last Admin: 12/11/24 13:42 Dose: 4 mg Documented By: KARLI Sodium Chloride (0.9 % Sodium Chloride Flush 3 Ml Syringe) 3 ml IVFLUSH QSHIFT [facility] Last Admin: 12/12/24 08:19 Dose: 3 ml Documented By: JENNY Thiamine HCl (Thiamine Hcl 100 Mg Tablet) 100 mg PO DAILY [facility] Last Admin: 12/12/24 08:22 Dose: Not Given Documented By: JENNY Non-Admin Reason: Patient Refused Labs 12/10/24 04:29 12/10/24 04:29 Labs: Laboratory Results - last 24 hr 12/11/24 12/11/24 12/11/24 17:27 18:19 19:59 POC Glucose 77 151 H Vancomycin Trough 22.7 H 12/12/24 12/12/24 07:50 11:13 POC Glucose 98 134 H Vancomycin Trough Microbiology Microbiology Results: Microbiology 12/09/24 19:29 Blood Culture - Preliminary Blood - Venous No growth after 48 hours. 12/09/24 19:09 Blood Culture - Preliminary Blood - Venous No growth after 48 hours. Assessment and Plan (1) Noncompliance: Status: Acute (2) Opioid dependence: Status: Acute (3) PAD (peripheral artery disease): Status: Acute (4) DM foot ulcer: Status: Acute (5) Hypoglycemia: Status: Acute (6) Steroid-induced hyperglycemia: Status: Acute (7) Gastroparesis: Status: Acute (8) Renal failure: Status: Acute (9) ESRD on dialysis: Status: Acute (10) Hyperkalemia: Status: Acute (11) Anemia: Status: Acute (12) Osteomyelitis: Status: Acute (13) Plantar ulcer of left foot: Status: Acute (14) Cerebral microvascular disease: Status: Acute (15) Relapsing remitting multiple sclerosis: Status: Acute (16) Central pontine myelinolysis: Status: Acute Plan Shereen Taylor is a 34 y/o woman with a PMHx significant for PAD s/p bilateral TMA 2/2 osteomyelitis, ESRD HD TTS, chronic opioid addiction, T2 DM uncontrolled history of C diff, peripheral arterial disease, HFrEF, relapsing remitting multiple sclerosis versus central pontine myelinolysis, chronic anemia, who presents with worsening left foot pain, admitted with osteomyelitis and purulent cellulitis of the left lower extremity. Left lower extremity osteomyelitis-suspected acute versus chronic Left lower extremity purulent cellulitis Bilateral lower extremity TMA Left foot would infection associated with possible 5th metatarsal base osteomyelitis; recent debridement. Patient was placed on IV antibiotics with cefepime and vancomycin. These were discontinued, as per discussion with Infectious diseases, thought to be 2/2 chronic osteomyelitis, without evidence of hematological dissemination. Planned MRI of the left foot to be followed with hemodialysis. MRI revealed abnormal signal at the proximal fifth metatarsal with a 2.1 ? 1.7 ? 0.7 cm area of nonenhancement, suspicious for osteomyelitis with possible necrosis or early abscess formation; mild surrounding soft tissue edema and reactive marrow changes also noted. Surgery will consult and determine if the patient requires inpatient versus outpatient planned amputation. PLAN - ID recommendations appreciated - general surgery recommendations post MRI foot - continue doxycycline 100 mg b.i.d. p.o. - hold off further IV antibiotics ESRD HD TTS Diabetic nephropathy Has been compliant with hemodialysis. Planning hemodialysis session today post MRI foot Nephrology consulted for inpatient hemodialysis. Uncontrolled T2 DM BG checks before meals at bedtime. Insulin sliding scale. Diabetic diet. Essential hypertension Continue home meds. HFrEF Peripheral arterial disease No acute symptoms. Chronic hypoxia Continue supplemental oxygen. History of C diff Denied diarrhea - inactive currently Relapsing remitting multiple sclerosis Central pontine myelinolysis (possibly 2/2 significant electrolyte shifts No acute exacerbation currently Continue to monitor QU[employer] - VTE: Heparin 5000 t.i.d. SQ - CODE STATUS: Full code - DIET: Diabetic/ renal Total time managing care of this patient today: 45 minutes. Quality Stroke Does the patient have a stroke diagnosis?: No VTE Prior VTE?: No VTE Risk Level:: Medical - moderate - high VTE Device Contraindication: Treatment Not Indicated VTE Drug Contraindication: N/A - Med Ordered
[2024-12-12 15:11] VITALS: BP 112/74; PULSE 83; RESP 18; TEMP 36.3; O2SAT 95
[2024-12-12 16:00] LABS: Glucose, Whole Blood 148 mg/dL (60-115)
--- NOTE | 2024-12-12 16:30 | PC.NURSE ---
Dinner time POC obtained. Patient reports she no longer wants her blood sugar tested at this time. Dr. Frankel notified.
--- NOTE | 2024-12-12 17:00 | P.CDIM_ITS ---
PROVIDER RESPONSE TEXT: To clarify, the appropriate diagnosis supported by the clinical indicators: Cellulitis is due to/associated with Diabetes Mellitus Type 2: probable QUERY TEXT: PHYSICIAN'S DOCUMENTATION REQUEST Date of Query: 12/12/2024 08:01 AM EDT Patient Name: Shereen Taylor Admit Date: 12/10/2024 Dear Ellen Frankel MD, A review of the medical record indicates additional documentation may be needed. Please review below and update the documentation accordingly. Clinical Indicators: Progress note 12/11/24 - Left lower extremity purulent cellulitis. DM Type 2, uncontrolled ID confirming patient more likely presents with chronic osteomyelitis and should opt for oral antibiotics to cover for cellulitis current. Insulin Please clarify the following regarding both the Cellulitis and DM Type 2 diagnosis and if associated if known: Cellulitis is due to/associated with Diabetes Mellitus Type 2 possible, probable, suspected, etc. Cellulitis is not due to/associated with Diabetes Mellitus Type 2 Other (explain) Clinically unable to determine (explain) Thank you, Betsey Metz, CCS, CDIS Use of terms such as suspected, likely, concern for, or probable (associated with a specific diagnosis that is being evaluated, monitored, or treated as if it exists) are acceptable and can be coded in the inpatient setting, when documented at the time of discharge. Please use your independent medical judgment in providing your response. THIS QUERY IS PART OF THE PERMANENT MEDICAL RECORD
[2024-12-12 20:00] VITALS: BP 124/82; PULSE 94; RESP 18; TEMP 36.6; O2SAT 93
--- NOTE | 2024-12-13 03:18 | PC.NURSE ---
Patient refused her nighttime POC. She reports she no longer wants her blood sugars tested. CHRIS Garzon notified.
--- NOTE | 2024-12-13 03:20 | PC.NURSE ---
Patient is refusing all PO medications. I instructed her on the reasonings for the medications, but patient still declined.
--- NOTE | 2024-12-13 03:23 | PC.NURSE ---
Patient is refusing all PO medications and refused her heparin. I instructed her on the reasonings for the medications, patient still declined.
[2024-12-13 04:00] VITALS: BP 135/80; PULSE 80; RESP 18; TEMP 36; O2SAT 94
[2024-12-13 10:12] VITALS: BP 130/60; PULSE 99; RESP 18; TEMP 36; O2SAT 98
[2024-12-13] MEDS: 0.9 % Sodium Chloride Flush 3 ML SYRINGE IVFLUSH ×3 (10:31→21:04)
[2024-12-13 14:18] LABS: Glucose, Whole Blood 188 mg/dL (60-115)
[2024-12-13 14:42] VITALS: BP 179/105
[2024-12-13 15:50] VITALS: BP 133/60; PULSE 93; RESP 18; TEMP 36.4; O2SAT 96
[2024-12-13 16:19] LABS: Glucose, Whole Blood 204 mg/dL (60-115)
--- NOTE | 2024-12-13 17:35 | P.PNIM_ITS ---
Subjective Subjective Date of Service: 12/13/24 Interval History: Tearful on evaluation today. The patient had refused her doxycycline during HD - RN had communicated with patient - patient agreeable to taking medication. The patient has been refusing POC glucose as well - I spoke with patient, and she is now agreeable. She expresses sadness and being fed up with the medical care. Will contiue to monitor and discuss with patient. Review of Systems Review of Systems: Yes all other systems are reviewed and are negative Physical Exam 2 Exam: Exam: General: A&O x3, oriented to time place person and situation, comfortable, no pain, generalized itching. Right eye total blindness. Cardiac: S1, S2 auscultated with no S3/4, no MRG. Well perfused. Respiratory: Normal breath sounds auscultated throughout all lung zones, without wheezing, rales. Normal rate. GI/ : No abdominal pain on palpation, no masses or distentions. MSK: Normal ambulation without pain at bony prominences or musculature. Bilateral TMA - bilateral plantar lesions without discharge, swollen, no eryrthema Neurological: Normal neurological examination on overview, without obvious CN II-XII abnormalities. Vital Signs: Vital Signs: Last Vital Signs Temp 97.6 F 12/13/24 15:50 Pulse 93 12/13/24 15:50 Resp 18 12/13/24 15:50 BP 133/60 12/13/24 15:50 Pulse Ox 96 12/13/24 15:50 O2 Del Method Room Air 12/13/24 15:50 O2 Flow Rate 2 12/10/24 13:22 BMI result Body Mass Index 31.7 Objective Data Active Medications Acetaminophen (Acetaminophen 325 Mg Tablet) 650 mg PO Q6H PRN PRN Reason: Pain, Mild 1-3,fever,headache Calcium Carbonate (Calcium Carbonate 750 Mg Tab.Chew) 750 mg PO Q4H PRN PRN Reason: Heartburn Carvedilol (Carvedilol 12.5 Mg Tablet) 12.5 mg PO BID [facility]; Protocol Last Admin: 12/13/24 10:31 Dose: Not Given Documented By: KARLI Non-Admin Reason: Patient Refused Cyanocobalamin (Cyanocobalamin (Vitamin B-12) 100 Mcg Tablet) 100 mcg PO DAILY [facility] Last Admin: 12/13/24 10:31 Dose: Not Given Documented By: KARLI Non-Admin Reason: Patient Refused Dextrose (Dextrose 50 % 25 Gm/50 Ml Syringe) 25 gm IVPUSH Q15M PRN; Protocol PRN Reason: per Hypoglycemia Standing Ord. Diphenhydramine HCl (Diphenhydramine Hcl 50 Mg/Ml Vial) 12.5 mg IVPUSH Q6H PRN PRN Reason: Itching Last Admin: 12/13/24 14:42 Dose: 12.5 mg Documented By: KARLI Folic Acid (Folic Acid 1 Mg Tablet) 1 mg PO DAILY [facility] Last Admin: 12/13/24 10:31 Dose: Not Given Documented By: KARLI Non-Admin Reason: Patient Refused Glucose (Glucose Gel 15 Gm Gel..Gram.) 15 gm PO Q15M PRN; Protocol PRN Reason: per Hypoglycemia Standing Ord. Heparin Sodium (Porcine) (Heparin Sodium,Porcine 5,000 Unit/Ml Vial) 5,000 unit SUBCUT Q12H [facility] Last Admin: 12/13/24 10:32 Dose: Not Given Documented By: KARLI Non-Admin Reason: Patient Refused Hydralazine HCl (Hydralazine Hcl 50 Mg Tablet) 50 mg PO TID [facility]; Protocol Last Admin: 12/13/24 14:42 Dose: 50 mg Documented By: KARLI Hydromorphone HCl (Hydromorphone Hcl 0.5 Mg/0.5 Ml Syringe) 0.5 mg IVPUSH Q4H PRN; Protocol PRN Reason: Pain, Severe (Pain Scale 7-10) Last Admin: 12/13/24 14:41 Dose: 0.5 mg Documented By: KARLI Doxycycline Hyclate 100 mg/ (Sodium Chloride) 250 mls @ 166.67 mls/hr IV Q12H [facility] Insulin Human Lispro (Insulin Lispro 100 Unit/Ml 3 Ml Vial) 0 unit SUBCUT QIDACHS [facility]; Protocol Last Admin: 12/13/24 17:06 Dose: 4 unit Documented By: TATYANA Magnesium Hydroxide (Milk Of Magnesia 30 Ml Oral.Susp) 30 ml PO DAILY PRN PRN Reason: Constipation Melatonin (Melatonin 3 Mg Tablet) 6 mg PO BEDTIME PRN PRN Reason: Insomnia Metoclopramide HCl (Metoclopramide Hcl 10 Mg/2 Ml Vial) 5 mg IVPUSH Q6H PRN PRN Reason: Nausea Last Admin: 12/11/24 18:01 Dose: 5 mg Documented By: BELINDA Ondansetron HCl (Ondansetron Hcl 4 Mg/2 Ml Vial) 4 mg IVPUSH Q6H PRN PRN Reason: Nausea and Vomiting Last Admin: 12/11/24 13:42 Dose: 4 mg Documented By: KARLI Sodium Chloride (0.9 % Sodium Chloride Flush 3 Ml Syringe) 3 ml IVFLUSH QSHIFT [facility] Last Admin: 12/13/24 17:06 Dose: 3 ml Documented By: TATYANA Thiamine HCl (Thiamine Hcl 100 Mg Tablet) 100 mg PO DAILY [facility] Last Admin: 12/13/24 10:32 Dose: Not Given Documented By: KARLI Non-Admin Reason: Patient Refused Labs 12/10/24 04:29 12/10/24 04:29 Labs: Laboratory Results - last 24 hr 12/13/24 12/13/24 14:14 16:12 POC Glucose 188 H 204 H Assessment and Plan (1) Noncompliance: Status: Acute (2) Opioid dependence: Status: Acute (3) PAD (peripheral artery disease): Status: Acute (4) DM foot ulcer: Status: Acute (5) Hypoglycemia: Status: Acute (6) Gastroparesis: Status: Acute (7) Renal failure: Status: Acute (8) ESRD on dialysis: Status: Acute (9) Hyperkalemia: Status: Acute (10) Osteomyelitis: Status: Acute (11) Acute osteomyelitis of left foot: Status: Acute (12) Acute pain of left foot: Status: Acute (13) Plantar ulcer of left foot: Status: Acute (14) Cerebral microvascular disease: Status: Acute (15) Relapsing remitting multiple sclerosis: Status: Acute (16) Central pontine myelinolysis: Status: Acute Plan Shereen Taylor is a 34 y/o woman with a PMHx significant for PAD s/p bilateral TMA 2/2 osteomyelitis, ESRD HD TTS, chronic opioid addiction, T2 DM uncontrolled history of C diff, peripheral arterial disease, HFrEF, relapsing remitting multiple sclerosis versus central pontine myelinolysis, chronic anemia, who presents with worsening left foot pain, admitted with osteomyelitis and purulent cellulitis of the left lower extremity. Left lower extremity Chronic osteomyelitis Bilateral lower extremity TMA Left foot would infection associated with possible 5th metatarsal base osteomyelitis; recent debridement. Patient was placed on IV antibiotics with cefepime and vancomycin. These were discontinued, as per discussion with Infectious diseases, thought to be 2/2 chronic osteomyelitis, without evidence of hematological dissemination. Planned MRI of the left foot to be followed with hemodialysis. MRI revealed abnormal signal at the proximal fifth metatarsal with a 2.1 ? 1.7 ? 0.7 cm area of nonenhancement, suspicious for osteomyelitis with possible necrosis or early abscess formation; mild surrounding soft tissue edema and reactive marrow changes also noted. Surgery will consult and determine if the patient requires inpatient versus outpatient planned amputation. PLAN - ID recommendations appreciated - general surgery recoommendations ; possible surgical intervention - continue doxycycline 100 mg b.i.d. IV ESRD HD TTS Diabetic nephropathy Has been compliant with hemodialysis. Planning hemodialysis session today post MRI foot Nephrology consulted for inpatient hemodialysis. Uncontrolled T2 DM BG checks before meals at bedtime. Insulin sliding scale. Diabetic diet. Essential hypertension Continue home meds. HFrEF Peripheral arterial disease No acute symptoms. Chronic hypoxia Continue supplemental oxygen. History of C diff Denied diarrhea - inactive currently Relapsing remitting multiple sclerosis Central pontine myelinolysis (possibly 2/2 significant electrolyte shifts No acute exacerbation currently Continue to monitor [employer] - VTE: Heparin 5000 t.i.d. SQ - CODE STATUS: Full code - DIET: Diabetic/ renal Total time managing care of this patient today: 35 minutes. Quality Stroke Does the patient have a stroke diagnosis?: No VTE Prior VTE?: No VTE Risk Level:: Medical - moderate - high VTE Device Contraindication: Treatment Not Indicated VTE Drug Contraindication: N/A - Med Ordered
[2024-12-13 20:00] VITALS: BP 130/67; PULSE 89; RESP 18; TEMP 36.4; O2SAT 95
[2024-12-13 21:30] LABS: Glucose, Whole Blood 121 mg/dL (60-115)
[2024-12-14 03:42] VITALS: BP 135/67; PULSE 94; RESP 14; TEMP 36; O2SAT 97
[2024-12-14 07:31] VITALS: BP 198/96; PULSE 87; RESP 18; TEMP 36; O2SAT 100
[2024-12-14 07:49] LABS: Glucose, Whole Blood 144 mg/dL (60-115)
[2024-12-14] MEDS: 0.9 % Sodium Chloride Flush 3 ML SYRINGE IVFLUSH ×3 (08:02→19:37)
[2024-12-14 08:39] VITALS: BP 180/92
[2024-12-14 11:47] LABS: Glucose, Whole Blood 163 mg/dL (60-115)
[2024-12-14 13:00] VITALS: BP 120/72; PULSE 80
--- NOTE | 2024-12-14 14:48 | P.PNIM_ITS ---
Subjective Subjective Date of Service: 12/14/24 Interval History: No new issues or complaints today. Patient remains on antibiotics POC glucose being performed, intermittently refusing. Evaluation on Sunday for possible surgical intervention - amputation possible Review of Systems Review of Systems: Yes all other systems are reviewed and are negative Physical Exam 2 Exam: Exam: General: A&O x3, oriented to time place person and situation, comfortable, no pain, generalized itching. Right eye total blindness. Cardiac: S1, S2 auscultated with no S3/4, no MRG. Well perfused. Respiratory: Normal breath sounds auscultated throughout all lung zones, without wheezing, rales. Normal rate. GI/ : No abdominal pain on palpation, no masses or distentions. MSK: Normal ambulation without pain at bony prominences or musculature. Bilateral TMA - bilateral plantar lesions without discharge, swollen, no eryrthema Neurological: Normal neurological examination on overview, without obvious CN II-XII abnormalities. Vital Signs: Vital Signs: Last Vital Signs Temp 96.8 F 12/14/24 07:31 Pulse 80 12/14/24 13:00 Resp 18 12/14/24 07:31 BP 120/72 12/14/24 13:00 Pulse Ox 100 12/14/24 07:31 O2 Del Method Room Air 12/14/24 07:31 O2 Flow Rate 2 12/10/24 13:22 BMI result Body Mass Index 31.7 Objective Data Active Medications Acetaminophen (Acetaminophen 325 Mg Tablet) 650 mg PO Q6H PRN PRN Reason: Pain, Mild 1-3,fever,headache Calcium Carbonate (Calcium Carbonate 750 Mg Tab.Chew) 750 mg PO Q4H PRN PRN Reason: Heartburn Carvedilol (Carvedilol 12.5 Mg Tablet) 12.5 mg PO BID [facility]; Protocol Last Admin: 12/14/24 08:01 Dose: 12.5 mg Documented By: TATYANA Cyanocobalamin (Cyanocobalamin (Vitamin B-12) 100 Mcg Tablet) 100 mcg PO DAILY [facility] Last Admin: 12/14/24 08:11 Dose: Not Given Documented By: TATYANA Non-Admin Reason: Patient Refused Dextrose (Dextrose 50 % 25 Gm/50 Ml Syringe) 25 gm IVPUSH Q15M PRN; Protocol PRN Reason: per Hypoglycemia Standing Ord. Diphenhydramine HCl (Diphenhydramine Hcl 50 Mg/Ml Vial) 12.5 mg IVPUSH Q6H PRN PRN Reason: Itching Last Admin: 12/14/24 10:06 Dose: 12.5 mg Documented By: TATYANA Folic Acid (Folic Acid 1 Mg Tablet) 1 mg PO DAILY [facility] Last Admin: 12/14/24 08:11 Dose: Not Given Documented By: TATYANA Non-Admin Reason: Patient Refused Glucose (Glucose Gel 15 Gm Gel..Gram.) 15 gm PO Q15M PRN; Protocol PRN Reason: per Hypoglycemia Standing Ord. Heparin Sodium (Porcine) (Heparin Sodium,Porcine 5,000 Unit/Ml Vial) 5,000 unit SUBCUT Q12H [facility] Last Admin: 12/14/24 08:10 Dose: Not Given Documented By: TATYANA Non-Admin Reason: Patient Refused Hydralazine HCl (Hydralazine Hcl 50 Mg Tablet) 50 mg PO TID [facility]; Protocol Last Admin: 12/14/24 08:00 Dose: 50 mg Documented By: TATYANA Hydromorphone HCl (Hydromorphone Hcl 0.5 Mg/0.5 Ml Syringe) 0.5 mg IVPUSH Q4H PRN; Protocol PRN Reason: Pain, Severe (Pain Scale 7-10) Last Admin: 12/14/24 12:33 Dose: 0.5 mg Documented By: TATYANA Doxycycline Hyclate 100 mg/ (Sodium Chloride) 250 mls @ 166.67 mls/hr IV Q12H [facility] Last Infusion: 12/14/24 10:00 Dose: Infused Documented By: TATYANA Insulin Human Lispro (Insulin Lispro 100 Unit/Ml 3 Ml Vial) 0 unit SUBCUT QIDACHS [facility]; Protocol Last Admin: 12/14/24 11:56 Dose: Not Given Documented By: TATYANA Non-Admin Reason: Patient Refused Magnesium Hydroxide (Milk Of Magnesia 30 Ml Oral.Susp) 30 ml PO DAILY PRN PRN Reason: Constipation Melatonin (Melatonin 3 Mg Tablet) 6 mg PO BEDTIME PRN PRN Reason: Insomnia Metoclopramide HCl (Metoclopramide Hcl 10 Mg/2 Ml Vial) 5 mg IVPUSH Q6H PRN PRN Reason: Nausea Last Admin: 12/13/24 17:50 Dose: 5 mg Documented By: TATYANA Ondansetron HCl (Ondansetron Hcl 4 Mg/2 Ml Vial) 4 mg IVPUSH Q6H PRN PRN Reason: Nausea and Vomiting Last Admin: 12/11/24 13:42 Dose: 4 mg Documented By: KARLI Sodium Chloride (0.9 % Sodium Chloride Flush 3 Ml Syringe) 3 ml IVFLUSH QSHIFT [facility] Last Admin: 12/14/24 08:02 Dose: 3 ml Documented By: TATYANA Thiamine HCl (Thiamine Hcl 100 Mg Tablet) 100 mg PO DAILY [facility] Last Admin: 12/14/24 08:11 Dose: Not Given Documented By: TATYANA Non-Admin Reason: Patient Refused Labs 12/10/24 04:29 12/10/24 04:29 Labs: Laboratory Results - last 24 hr 12/13/24 12/13/24 12/14/24 16:12 21:25 07:43 POC Glucose 204 H 121 H 144 H 12/14/24 11:25 POC Glucose 163 H Assessment and Plan (1) Noncompliance: Status: Acute (2) Opioid dependence: Status: Acute (3) PAD (peripheral artery disease): Status: Acute (4) DM foot ulcer: Status: Acute (5) Central pontine myelinolysis: Status: Acute (6) Relapsing remitting multiple sclerosis: Status: Acute (7) Plantar ulcer of left foot: Status: Acute (8) RUE weakness: Status: Acute (9) Acute pain of left foot: Status: Acute (10) Osteomyelitis: Status: Acute (11) Acute osteomyelitis of left foot: Status: Acute Plan Shereen Taylor is a 34 y/o woman with a PMHx significant for PAD s/p bilateral TMA 2/2 osteomyelitis, ESRD HD TTS, chronic opioid addiction, T2 DM uncontrolled history of C diff, peripheral arterial disease, HFrEF, relapsing remitting multiple sclerosis versus central pontine myelinolysis, chronic anemia, who presents with worsening left foot pain, admitted with osteomyelitis and purulent cellulitis of the left lower extremity. Left lower extremity Chronic osteomyelitis Bilateral lower extremity TMA Left foot would infection associated with possible 5th metatarsal base osteomyelitis; recent debridement. Patient was placed on IV antibiotics with cefepime and vancomycin. These were discontinued, as per discussion with Infectious diseases, thought to be 2/2 chronic osteomyelitis, without evidence of hematological dissemination. Planned MRI of the left foot to be followed with hemodialysis. MRI revealed abnormal signal at the proximal fifth metatarsal with a 2.1 ? 1.7 ? 0.7 cm area of nonenhancement, suspicious for osteomyelitis with possible necrosis or early abscess formation; mild surrounding soft tissue edema and reactive marrow changes also noted. Surgery will consult and determine if the patient requires inpatient versus outpatient planned amputation. PLAN - ID recommendations appreciated - general surgery recoommendations ; possible surgical intervention - continue doxycycline 100 mg b.i.d. IV ESRD HD TTS Diabetic nephropathy Has been compliant with hemodialysis. <MRI completed. Nephrology consulted for inpatient hemodialysis. Completing TTS HD sessions without issues Uncontrolled T2 DM BG checks before meals at bedtime. Insulin sliding scale. Diabetic diet. Essential hypertension Continue home meds. HFrEF Peripheral arterial disease No acute symptoms. Chronic hypoxia Continue supplemental oxygen. History of C diff Denied diarrhea - inactive currently Relapsing remitting multiple sclerosis Central pontine myelinolysis (possibly 2/2 significant electrolyte shifts No acute exacerbation currently Continue to monitor [employer] - VTE: Heparin 5000 t.i.d. SQ - CODE STATUS: Full code - DIET: Diabetic/ renal Total time managing care of this patient today: 35 minutes. Quality Stroke Does the patient have a stroke diagnosis?: No VTE Prior VTE?: No VTE Risk Level:: Medical - moderate - high VTE Device Contraindication: Treatment Not Indicated VTE Drug Contraindication: N/A - Med Ordered
[2024-12-14 15:29] VITALS: BP 133/69; PULSE 82; RESP 16; TEMP 36.2; O2SAT 96
[2024-12-14 16:02] LABS: Glucose, Whole Blood 81 mg/dL (60-115)
[2024-12-14 17:12] LABS: Glucose, Whole Blood 117 mg/dL (60-115)
[2024-12-14 22:11] VITALS: BP 148/71
--- NOTE | 2024-12-14 23:29 | PC.NURSE ---
Pt declined her 2100 blood sugar check. Pt educated on the importance of this but still declined. Pt agreed to take PO meds but also declined the heparin. Pt complaining of pain and itchiness and medicated with dilaudid and benedryl per APR. Pt resting comfortably with eyes closed, respirations even and unlabored. Will continue to monitor.
--- NOTE | 2024-12-15 06:02 | PC.NURSE ---
At approx 0430 pt complaining of 8/10 left foot pain. The only prn pain med was tylenol and pt declined tylenol. This RN messaged JOVON Carbone and was given a one time dilaudid dose. PT medicated with dilaudid per APR. Pt resting comfortably and respirations 16 and unlabored. Will continue to monitor pt.
[2024-12-15 06:47] VITALS: BP 152/70; PULSE 83; RESP 16; TEMP 36.6; O2SAT 98
[2024-12-15 08:23] LABS: Glucose, Whole Blood 99 mg/dL (60-115)
[2024-12-15] MEDS: 0.9 % Sodium Chloride Flush 3 ML SYRINGE IVFLUSH ×3 (08:38→20:42)
--- NOTE | 2024-12-15 10:50 | P.DS_ITS ---
DS: Providers Provider Date of Service: 12/17/24 Date of admission: 12/10/24 03:06 Date of discharge: 12/17/24 Primary care physician: Genevieve Casillas MD Consults: 12/10/24 03:29 Consult to Nephrology Routine Consulting Provider: [facility] Reason for consultation: Inpatient hemodialysis Has provider been notified: No 12/10/24 03:32 Consult to Nephrology Routine Consulting Provider: Fernando Siddiqi Reason for consultation: Inpatient hemodialysis Has provider been notified: No 12/10/24 04:10 Consult to General Surgery Routine Consulting Provider: [facility] Reason for consultation: Left foot necrotic wound Has provider been notified: No Consult to Wound Care Routine Reason for consultation: Left foot multiple diabetic wounds 12/10/24 07:57 Consult to Infectious Diseases Routine Consulting Provider: [facility] Reason for consultation: OM foot - pending MRI DS: Diagnosis Discharge Diagnosis (1) Noncompliance: Status: Acute (2) Opioid dependence: Status: Acute (3) PAD (peripheral artery disease): Status: Acute (4) DM foot ulcer: Status: Acute (5) Central pontine myelinolysis: Status: Acute (6) Relapsing remitting multiple sclerosis: Status: Acute (7) Plantar ulcer of left foot: Status: Acute (8) RUE weakness: Status: Acute (9) Acute pain of left foot: Status: Acute (10) Osteomyelitis: Status: Acute (11) Acute osteomyelitis of left foot: Status: Acute DS: Summary Hospital Course Hospital Course: History and physical as per admitting provider. Shereen Taylor is a 34 years old woman with past medical history significant for PAD s/p bilateral TMA, ESRD on HD (TTS), type 2 diabetes mellitus on insulin, diabetic retinopathy with blindness, essential hypertension, MS, chronic hypoxia on supplemental oxygen, HFrEF, C diff infection and bacteremias with multiple organisms presents to the emergency department complaining of left foot worsening pain. Also, the wound has malodorous bloody discharge. She denied fever or chills. On 11/05/2024, she underwent left foot debridement by Dr. Rajput. She did not report any acute cardiopulmonary or gastrointestinal symptoms. In the ED she was found to have stable vital signs. On supplemental oxygen via nasal cannula 2 mL/min, baseline. Blood workup showed no leukocytosis or lactic acidosis. Hemoglobin is 10.6 and platelets 117. ESR is 67. There are no significant electrolyte imbalances but CO2 is 32. Creatinine is 8.15 and BUN 39. Troponin is 63.4. Left foot x-ray showed new erosive changes of the 5th metatarsal base laterally concerning for osteomyelitis. ED tx: Cefepime 2 g IV, vancomycin 2 g, Dilaudid 1 mg IV, Benadryl 50 mg IV, Zofran 4 mg IV 34-year-old woman with a history of lower extremity osteomyelitis presented with acute on chronic osteomyelitis of 5th metatarsal osteomyelitis with recent debridement. Treated with IV cefepime and vancomycin. Seen and evaluated by General surgery with no requirement at this time for surgical intervention. She was also seen evaluated by Infectious Disease provider who recommended 2 weeks of oral doxycycline. End-stage renal disease on dialysis with diabetic nephropathy. Continue hemodialysis as per usual schedule Uncontrolled diabetes mellitus. Continue home regimen History of C diff. Currently on fidaxomicin History of relapsing remitting multiple sclerosis. Continue current regimen Time Attestation Discharge Coordination Time (in mins): 45 Quality: Safe Use of Opioids Does Pt have an Active Cancer Diagnosis on the Problem List?: No Quality: Stroke Does the patient have a stroke diagnosis?: No Physical Exam 2 Exam: Exam: Appearing in no acute distress head is normocephalic atraumatic eyes pupils are PERRLA sclera is anicteric mouth throat mucous membranes are intact and moist neck is supple no lymphadenopathy, no JVD noted lung sounds are clear to auscultation heart regular rate rhythm, clear S1, S2 positive bowel sounds, abdomen is soft, nontender neuro patient is alert x3, no focal deficits Vital Signs: Vital Signs: Last Vital Signs Temp 97.9 F 12/15/24 06:47 Pulse 83 12/15/24 06:47 Resp 16 12/15/24 06:47 BP 152/70 H 12/15/24 06:47 Pulse Ox 98 12/15/24 06:47 O2 Del Method Room Air 12/15/24 06:47 O2 Flow Rate 2 12/10/24 13:22 BMI result Body Mass Index 31.7 DS: Data Data Completed and Pending Completed studies during hospitalization [Text1]: Procedures Detachment at Left 2nd Toe, Complete, Open Approach (09/08/23) Detachment at Left 3rd Toe, Complete, Open Approach (09/08/23) Detachment at Left 4th Toe, Complete, Open Approach (09/08/23) Detachment at Right Foot, Partial 1st Ray, Open Approach (03/01/20) Detachment at Right Foot, Partial 2nd Ray, Open Approach (03/01/20) Detachment at Right Foot, Partial 3rd Ray, Open Approach (03/01/20) Detachment at Right Foot, Partial 4th Ray, Open Approach (03/01/20) Detachment at Right Foot, Partial 5th Ray, Open Approach (03/01/20) Drainage of Right Pleural Cavity, Percutaneous Approach (01/14/21) Drainage of Spinal Canal, Percutaneous Approach, Diagnostic (09/05/24) Excision of Left Foot Muscle, Open Approach (01/14/24) Excision of Left Foot Skin, External Approach (10/08/23) Excision of Left Foot Subcutaneous Tissue and Fascia, Open Approach (10/29/24) Excision of Right Foot Skin, External Approach (07/31/24) Excision of Stomach, Pylorus, Via Natural or Artificial Opening Endoscopic, Diagnostic (08/27/22) Fluoroscopy of Spinal Cord (09/05/24) Fluoroscopy of Superior Vena Cava, Guidance (08/14/22) Insertion of Endotracheal Airway into Trachea, Via Natural or Artificial Opening (11/10/23) Insertion of Infusion Device into Right Atrium, Percutaneous Approach (02/25/24) Insertion of Infusion Device into Superior Vena Cava, Percutaneous Approach (05/25/24) Insertion of Infusion Device into Upper Vein, Percutaneous Approach (01/14/24) Insertion of Tunneled Vascular Access Device into Chest Subcutaneous Tissue and Fascia, Percutaneous Approach (05/25/24) Introduction of Other Thrombolytic into Peripheral Vein, Percutaneous Approach (09/05/24) Introduction of Vasopressor into Peripheral Vein, Percutaneous Approach (11/10/23) Isolation (11/10/23) Performance of Urinary Filtration, Intermittent, Less than 6 Hours Per Day (10/29/24) Removal of Infusion Device from Great Vessel, External Approach (01/14/21) Removal of Infusion Device from Great Vessel, Percutaneous Approach (05/25/24) Removal of Infusion Device from Heart, External Approach (01/14/24) Removal of Tunneled Vascular Access Device from Trunk Subcutaneous Tissue and Fascia, Open Approach (05/25/24) Respiratory Ventilation, Greater than 96 Consecutive Hours (11/10/23) Transfusion of Nonautologous Red Blood Cells into Peripheral Vein, Percutaneous Approach (11/10/23) Ultrasonography of Superior Vena Cava, Guidance (02/25/24) Labs on day of discharge: Laboratory Results - last 24 hr 12/14/24 12/14/24 12/14/24 11:25 15:58 17:08 POC Glucose 163 H 81 117 H Random Vancomycin 12/14/24 12/15/24 18:00 08:19 POC Glucose 99 Random Vancomycin 13.3 L Discharge Plan Discharge Anticipated Discharge Date/Time: 12/17/24 08:00 Patient Disposition: Home Health Service Discharge Diagnosis: Acute on chronic left lower extremity osteomyelitis End-stage renal disease on dialysis Referrals: Mila HARRISON [Other] - 1 Week Referral Note: resume HD [facility] [Outside] - 1 Week Genevieve Gtz MD [Primary Care Provider, Internal Medicine] - 1 Week Discharge Medications: New doxycycline hyclate 100 mg tablet 100 mg PO BID Qty: 28 0RF Continued carvedilol 12.5 mg Tablet 12.5 mg PO BID 90 Days Qty: 180 0RF Protocol: Hold for SBP/HR < HOLD for SBP < : 90 HOLD for HR < : 60 hydralazine 50 mg Tablet 50 mg PO TID 90 Days Qty: 270 0RF Protocol: Hold for SBP< HOLD for SBP < : 90 acetaminophen 325 mg tablet 650 mg PO Q4H PRN (Reason: mild pain) (DME) FreeStyle Lite Strips Strip Qty: 100 0RF Rx Instructions: Test four times a day or as directed. (DME) blood-glucose meter [FreeStyle Lite Meter] Kit Qty: 1 0RF Rx Instructions: As Directed (DME) pen needle, diabetic 32 gauge x 1/4 needle Qty: 100 0RF Rx Instructions: Use four times a day or as directed. (DME) lancets [FreeStyle Lancets] 28 gauge misc Qty: 100 0RF Rx Instructions: Test four times a day or as directed. oxycodone 5 mg tablet 5 mg PO Q8H PRN (Reason: pain) Qty: 15 0RF Rx Instructions: Partial Fill upon patient request. lidocaine 5 % adhesive patch,medicated 1 patch topical DAILY PRN (Reason: Pain) nitroglycerin 0.4 mg tablet, sublingual 0.4 mg sublingual DIRECTED PRN (Reason: Angina) albuterol sulfate [Ventolin HFA] 90 mcg/actuation HFA aerosol inhaler 2 puff inhalation Q6H PRN (Reason: wheezing) calcium carbonate [Tums] 200 mg calcium (500 mg) Tablet,Chewable 200 mg PO TIDWM PRN (Reason: Acid Reflux) fidaxomicin [Dificid] 200 mg Tablet 200 mg PO Q12H Qty: 22 0RF Discharge Orders: Discharge Order (Routine); Ordered 12/17/24 Ordered By: Tawny Taylor Diet: Advance to usual diet Activity on Discharge: As tolerated Stand Alone Forms: Patient Portal Discharge page Print Language: [place] Care Plan Goals: Complete 2 week course of doxycycline Health Concerns: Acute on chronic left lower extremity osteomyelitis End-stage renal disease on dialysis Plan of Treatment: Follow up with primary care provider as needed Take all medications as prescribed Follow up with General surgery for any worsening area in the wound Assessment: See discharge summary
[2024-12-15 11:07] LABS: Glucose, Whole Blood 146 mg/dL (60-115)
--- NOTE | 2024-12-15 14:40 | MHC.CM.PN ---
Addendum entered by Yarely Moe 12/15/24 15:04: [id number] Original Note: Patient was planned for discharge today. She has decided to appeal her discharge. The patient is legally blind. CM verbally delivered the IMM, Detailed notice of non coverage and the HINN 12 non covered continued stay. CM signed the forms at the patients request. CM assist provided with the call to [employer]. Patient verbalized understanding of all instructions provided.
--- NOTE | 2024-12-15 14:59 | P.PNIM_ITS ---
Subjective Subjective Date of Service: 12/15/24 Review of Systems Follow up osteo chronic pain Physical Exam 2 Exam: Exam: Appearing in no acute distress head is normocephalic atraumatic eyes pupils are PERRLA sclera is anicteric mouth throat mucous membranes are intact and moist neck is supple no lymphadenopathy, no JVD noted lung sounds are clear to auscultation heart regular rate rhythm, clear S1, S2 positive bowel sounds, abdomen is soft, nontender neuro patient is alert x3, no focal deficits Vital Signs: Vital Signs: Last Vital Signs Temp 97.9 F 12/15/24 06:47 Pulse 83 12/15/24 06:47 Resp 16 12/15/24 06:47 BP 152/70 H 12/15/24 06:47 Pulse Ox 98 12/15/24 06:47 O2 Del Method Room Air 12/15/24 06:47 O2 Flow Rate 2 12/10/24 13:22 BMI result Body Mass Index 31.7 Objective Data Active Medications Acetaminophen (Acetaminophen 325 Mg Tablet) 650 mg PO Q6H PRN PRN Reason: Pain, Mild 1-3,fever,headache Calcium Carbonate (Calcium Carbonate 750 Mg Tab.Chew) 750 mg PO Q4H PRN PRN Reason: Heartburn Carvedilol (Carvedilol 12.5 Mg Tablet) 12.5 mg PO BID [facility]; Protocol Last Admin: 12/15/24 08:38 Dose: 12.5 mg Documented By: BELINDA Cyanocobalamin (Cyanocobalamin (Vitamin B-12) 100 Mcg Tablet) 100 mcg PO DAILY [facility] Last Admin: 12/15/24 08:44 Dose: Not Given Documented By: BELINDA Non-Admin Reason: Patient Refused Dextrose (Dextrose 50 % 25 Gm/50 Ml Syringe) 25 gm IVPUSH Q15M PRN; Protocol PRN Reason: per Hypoglycemia Standing Ord. Diphenhydramine HCl (Diphenhydramine Hcl 25 Mg Capsule) 25 mg PO Q6H PRN PRN Reason: itching Folic Acid (Folic Acid 1 Mg Tablet) 1 mg PO DAILY [facility] Last Admin: 12/15/24 08:44 Dose: Not Given Documented By: BELINDA Non-Admin Reason: Patient Refused Glucose (Glucose Gel 15 Gm Gel..Gram.) 15 gm PO Q15M PRN; Protocol PRN Reason: per Hypoglycemia Standing Ord. Heparin Sodium (Porcine) (Heparin Sodium,Porcine 5,000 Unit/Ml Vial) 5,000 unit SUBCUT Q12H [facility] Last Admin: 12/15/24 08:44 Dose: Not Given Documented By: BELINDA Non-Admin Reason: Patient Refused Hydralazine HCl (Hydralazine Hcl 50 Mg Tablet) 50 mg PO TID [facility]; Protocol Last Admin: 12/15/24 08:38 Dose: 50 mg Documented By: BELINDA Doxycycline Hyclate 100 mg/ (Sodium Chloride) 250 mls @ 166.67 mls/hr IV Q12H [facility] Last Infusion: 12/15/24 11:15 Dose: Infused Documented By: BELINDA Insulin Human Lispro (Insulin Lispro 100 Unit/Ml 3 Ml Vial) 0 unit SUBCUT QIDACHS [facility]; Protocol Last Admin: 12/15/24 11:26 Dose: Not Given Documented By: BELINDA Non-Admin Reason: No Insulin Coverage Magnesium Hydroxide (Milk Of Magnesia 30 Ml Oral.Susp) 30 ml PO DAILY PRN PRN Reason: Constipation Melatonin (Melatonin 3 Mg Tablet) 6 mg PO BEDTIME PRN PRN Reason: Insomnia Metoclopramide HCl (Metoclopramide Hcl 10 Mg/2 Ml Vial) 5 mg IVPUSH Q6H PRN PRN Reason: Nausea Last Admin: 12/13/24 17:50 Dose: 5 mg Documented By: TATYANA Ondansetron HCl (Ondansetron Hcl 4 Mg/2 Ml Vial) 4 mg IVPUSH Q6H PRN PRN Reason: Nausea and Vomiting Last Admin: 12/15/24 08:37 Dose: 4 mg Documented By: BELINDA Oxycodone HCl (Oxycodone Hcl Immed Release 5 Mg Tablet) 5 mg PO Q8H PRN PRN Reason: Pain, Moderate(Pain Scale 4-6) Sodium Chloride (0.9 % Sodium Chloride Flush 3 Ml Syringe) 3 ml IVFLUSH QSHIFT [facility] Last Admin: 12/15/24 08:38 Dose: 3 ml Documented By: BELINDA Thiamine HCl (Thiamine Hcl 100 Mg Tablet) 100 mg PO DAILY [facility] Last Admin: 12/15/24 08:44 Dose: Not Given Documented By: HO.PARROWA Non-Admin Reason: Patient Refused Labs 12/10/24 04:29 12/10/24 04:29 Labs: Laboratory Results - last 24 hr 12/14/24 12/14/24 12/14/24 15:58 17:08 18:00 POC Glucose 81 117 H Random Vancomycin 13.3 L 12/15/24 12/15/24 08:19 11:03 POC Glucose 99 146 H Random Vancomycin Microbiology Microbiology Results: Microbiology 12/09/24 19:29 Blood Culture - Final Blood - Venous No growth after 5 days. 12/09/24 19:09 Blood Culture - Final Blood - Venous No growth after 5 days. Assessment and Plan (1) Noncompliance: Status: Acute (2) Opioid dependence: Status: Acute (3) PAD (peripheral artery disease): Status: Acute (4) DM foot ulcer: Status: Acute (5) Central pontine myelinolysis: Status: Acute (6) Relapsing remitting multiple sclerosis: Status: Acute (7) Plantar ulcer of left foot: Status: Acute (8) RUE weakness: Status: Acute (9) Acute pain of left foot: Status: Acute (10) Osteomyelitis: Status: Acute (11) Acute osteomyelitis of left foot: Status: Acute Plan 34 y/o woman with a PMHx significant for PAD s/p bilateral TMA 2/2 osteomyelitis, ESRD HD TTS, chronic opioid addiction, T2 DM uncontrolled history of C diff, peripheral arterial disease, HFrEF, relapsing remitting multiple sclerosis versus central pontine myelinolysis, chronic anemia, who presents with worsening left foot pain, admitted with osteomyelitis and purulent cellulitis of the left lower extremity. Left lower extremity Chronic osteomyelitis Bilateral lower extremity TMA Left foot would infection associated with possible 5th metatarsal base osteomyelitis; recent debridement. s/p cefepime and vancomycin. MRI revealed abnormal signal at the proximal fifth metatarsal with a 2.1 ? 1.7 ? 0.7 cm area of nonenhancement, suspicious for osteomyelitis with possible necrosis or early abscess formation; mild surrounding soft tissue edema and reactive marrow changes also noted. not requiring surgical intervention at this time ion doxycycline 100 mg b.i.d. po ESRD HD TTS Diabetic nephropathy nephrology following Uncontrolled T2 DM insulin sliding scale. Diabetic diet. Essential hypertension Continue home meds. HFrEF Peripheral arterial disease No acute symptoms. Chronic hypoxia Continue supplemental oxygen to keep oxygen saturation greater than 90% Relapsing remitting multiple sclerosis Central pontine myelinolysis (possibly 2/2 significant electrolyte shifts No acute exacerbation currently Continue to monitor DVT prophylaxis with heparin full code Plan was to discharge patient today but patient declined and requested to healed at discharge. At this point patient is stable and can be discharged home with 2 weeks of oral antibiotics as per Infectious Disease provider. Total time managing care of this patient today: 35 minutes. Quality Stroke Does the patient have a stroke diagnosis?: No VTE Prior VTE?: No VTE Risk Level:: Medical - moderate - high VTE Device Contraindication: Treatment Not Indicated VTE Drug Contraindication: N/A - Med Ordered
[2024-12-15 15:57] VITALS: BP 140/78; PULSE 83; RESP 18; TEMP 36.6; O2SAT 98
--- NOTE | 2024-12-15 17:29 | P.PNNP_ITS ---
Subjective Subjective Date of Service: 12/15/24 Interval history: Seen and examined, events noted Physical Exam 2 Vital Signs: Vital Signs: Last Vital Signs Temp 97.9 F 12/15/24 15:57 Pulse 83 12/15/24 15:57 Resp 18 12/15/24 15:57 BP 140/78 H 12/15/24 15:57 Pulse Ox 98 12/15/24 15:57 O2 Del Method Room Air 12/15/24 15:57 O2 Flow Rate 2 12/10/24 13:22 BMI result Body Mass Index 31.7 Const: General: comfortable and no acute distress O rientation/consciousness: patient oriented x3 Neuro: General: patient oriented x3 Extrem: Other: Left foot: 2.5x2.5 cm open ulcer on the lateral aspect of the left foot. Scant purulent drainage. Exquisitely tender to light palpation. Left TMA Right foot: Dry stable wound on the medial aspect of the distal end of the remaining right foot. Right TMA Objective Data Labs 12/10/24 04:29 12/10/24 04:29 Labs: Laboratory Results - last 24 hr 12/14/24 12/15/24 12/15/24 18:00 08:19 11:03 POC Glucose 99 146 H Random Vancomycin 13.3 L Microbiology Microbiology Results: Microbiology 12/09/24 19:29 Blood - Venous Blood Culture - Final No growth after 5 days. 12/09/24 19:09 Blood - Venous Blood Culture - Final No growth after 5 days. Procedures Date of Service Date of Service: 12/15/24 Assessment & Plan Assessment and plan (1) Noncompliance: Status: Acute (2) Opioid dependence: Status: Acute (3) PAD (peripheral artery disease): Status: Acute (4) DM foot ulcer: Status: Acute (5) Hypoglycemia: Status: Acute (6) Gastroparesis: Status: Acute (7) ESRD on dialysis: Status: Acute (8) Hyperkalemia: Status: Acute (9) Anemia: Status: Acute (10) Osteomyelitis: Status: Acute (11) Acute pain of left foot: Status: Acute (12) Cerebral microvascular disease: Status: Acute (13) Relapsing remitting multiple sclerosis: Status: Acute (14) Central pontine myelinolysis: Status: Acute Plan ESRD: cont TTS HD Nephrogenic Anemia MBD of ESRD Recurrent OSteo: dx and Tx as noted by primary team REC: cont HD TTS, Abx as noted; cont routine meds will follow w team Time Spent With Patient Time: Total time managing care of this patient today ____ minutes. Progress Note: Quality Stroke Does the patient have a stroke diagnosis?: No
[2024-12-15 20:00] VITALS: BP 141/74; PULSE 84; RESP 18; TEMP 36.1; O2SAT 96
[2024-12-16 06:54] VITALS: BP 152/74; PULSE 86; RESP 16; TEMP 36.6; O2SAT 96
--- NOTE | 2024-12-16 09:02 | HO.PM.IMPN ---
Subjective Subjective Date of Service: 12/16/24 Review of Systems Follow up osteo chronic pain to legs crying in pain Physical Exam Exam: Exam: Appearing in no acute distress lung sounds are clear to auscultation heart regular rate rhythm, clear S1, S2 positive bowel sounds, abdomen is soft, nontender neuro patient is alert x3, no focal deficits TMA, chronic LE wounds Vital Signs: Vital Signs: Last Vital Signs Temp 98 F 12/16/24 06:54 Pulse 86 12/16/24 06:54 Resp 16 12/16/24 06:54 BP 152/74 H 12/16/24 06:54 Pulse Ox 96 12/16/24 06:54 O2 Del Method Room Air 12/16/24 06:54 O2 Flow Rate 2 12/10/24 13:22 BMI result Body Mass Index 31.7 Objective Data Active Medications Acetaminophen (Acetaminophen 325 Mg Tablet) 650 mg PO Q6H PRN PRN Reason: Pain, Mild 1-3,fever,headache Calcium Carbonate (Calcium Carbonate 750 Mg Tab.Chew) 750 mg PO Q4H PRN PRN Reason: Heartburn Carvedilol (Carvedilol 12.5 Mg Tablet) 12.5 mg PO BID [facility]; Protocol Last Admin: 12/16/24 08:58 Dose: Not Given Documented By: KERRIE Non-Admin Reason: Patient Refused Cyanocobalamin (Cyanocobalamin (Vitamin B-12) 100 Mcg Tablet) 100 mcg PO DAILY [facility] Last Admin: 12/16/24 08:59 Dose: Not Given Documented By: KERRIE Non-Admin Reason: Patient Refused Dextrose (Dextrose 50 % 25 Gm/50 Ml Syringe) 25 gm IVPUSH Q15M PRN; Protocol PRN Reason: per Hypoglycemia Standing Ord. Diphenhydramine HCl (Diphenhydramine Hcl 25 Mg Capsule) 25 mg PO Q6H PRN PRN Reason: itching Folic Acid (Folic Acid 1 Mg Tablet) 1 mg PO DAILY [facility] Last Admin: 12/16/24 08:59 Dose: Not Given Documented By: KERRIE Non-Admin Reason: Patient Refused Glucose (Glucose Gel 15 Gm Gel..Gram.) 15 gm PO Q15M PRN; Protocol PRN Reason: per Hypoglycemia Standing Ord. Heparin Sodium (Porcine) (Heparin Sodium,Porcine 5,000 Unit/Ml Vial) 5,000 unit SUBCUT Q12H [facility] Last Admin: 12/16/24 08:59 Dose: Not Given Documented By: KERRIE Non-Admin Reason: Patient Refused Hydralazine HCl (Hydralazine Hcl 50 Mg Tablet) 50 mg PO TID [facility]; Protocol Last Admin: 12/16/24 08:59 Dose: Not Given Documented By: KERRIE Non-Admin Reason: Patient Refused Doxycycline Hyclate 100 mg/ (Sodium Chloride) 250 mls @ 166.67 mls/hr IV Q12H [facility] Last Infusion: 12/16/24 08:24 Dose: Infused Documented By: KERRIE Insulin Human Lispro (Insulin Lispro 100 Unit/Ml 3 Ml Vial) 0 unit SUBCUT QIDACHS [facility]; Protocol Last Admin: 12/16/24 07:09 Dose: Not Given Documented By: KERRIE Non-Admin Reason: Patient Refused Magnesium Hydroxide (Milk Of Magnesia 30 Ml Oral.Susp) 30 ml PO DAILY PRN PRN Reason: Constipation Melatonin (Melatonin 3 Mg Tablet) 6 mg PO BEDTIME PRN PRN Reason: Insomnia Metoclopramide HCl (Metoclopramide Hcl 10 Mg/2 Ml Vial) 5 mg IVPUSH Q6H PRN PRN Reason: Nausea Last Admin: 12/13/24 17:50 Dose: 5 mg Documented By: TATYANA Ondansetron HCl (Ondansetron Hcl 4 Mg/2 Ml Vial) 4 mg IVPUSH Q6H PRN PRN Reason: Nausea and Vomiting Last Admin: 12/15/24 08:37 Dose: 4 mg Documented By: BELINDA Oxycodone HCl (Oxycodone Hcl Immed Release 5 Mg Tablet) 5 mg PO Q8H PRN PRN Reason: Pain, Moderate(Pain Scale 4-6) Sodium Chloride (0.9 % Sodium Chloride Flush 3 Ml Syringe) 3 ml IVFLUSH QSHIFT [facility] Last Admin: 12/16/24 09:00 Dose: Not Given Documented By: KERRIE Non-Admin Reason: Previously Administered Thiamine HCl (Thiamine Hcl 100 Mg Tablet) 100 mg PO DAILY [facility] Last Admin: 12/16/24 08:59 Dose: Not Given Documented By: KERRIE Non-Admin Reason: Patient Refused Labs 12/10/24 04:29 12/10/24 04:29 Labs: Laboratory Results - last 24 hr 12/15/24 11:03 POC Glucose 146 H Assessment and Plan (1) Noncompliance: Status: Acute (2) Opioid dependence: Status: Acute (3) PAD (peripheral artery disease): Status: Acute (4) DM foot ulcer: Status: Acute (5) Central pontine myelinolysis: Status: Acute (6) Relapsing remitting multiple sclerosis: Status: Acute (7) Plantar ulcer of left foot: Status: Acute (8) RUE weakness: Status: Acute (9) Acute pain of left foot: Status: Acute (10) Osteomyelitis: Status: Acute (11) Acute osteomyelitis of left foot: Status: Acute Plan 34 y/o woman with a PMHx significant for PAD s/p bilateral TMA 2/2 osteomyelitis, ESRD HD TTS, chronic opioid addiction, T2 DM uncontrolled history of C diff, peripheral arterial disease, HFrEF, relapsing remitting multiple sclerosis versus central pontine myelinolysis, chronic anemia, who presents with worsening left foot pain, admitted with osteomyelitis and purulent cellulitis of the left lower extremity. Left lower extremity Chronic osteomyelitis Bilateral lower extremity TMA Left foot would infection associated with possible 5th metatarsal base osteomyelitis; recent debridement. s/p cefepime and vancomycin. MRI revealed abnormal signal at the proximal fifth metatarsal with a 2.1 ? 1.7 ? 0.7 cm area of nonenhancement, suspicious for osteomyelitis with possible necrosis or early abscess formation; mild surrounding soft tissue edema and reactive marrow changes also noted. not requiring surgical intervention at this time ion doxycycline 100 mg b.i.d. po ESRD HD TTS Diabetic nephropathy nephrology following Uncontrolled T2 DM insulin sliding scale. Diabetic diet. Essential hypertension Continue home meds. HFrEF Peripheral arterial disease No acute symptoms. Chronic hypoxia Continue supplemental oxygen to keep oxygen saturation greater than 90% Relapsing remitting multiple sclerosis Central pontine myelinolysis (possibly 2/2 significant electrolyte shifts No acute exacerbation currently Continue to monitor DVT prophylaxis with heparin full code patient crying in pain from chronic LE wounds and neuropathy, patient stating that she cant go to dialysis unless she gets pain medication. patient has appealed her discharge Total time managing care of this patient today: 35 minutes. Quality Stroke Does the patient have a stroke diagnosis?: No VTE Prior VTE?: No VTE Risk Level:: Medical - moderate - high VTE Device Contraindication: Treatment Not Indicated VTE Drug Contraindication: N/A - Med Ordered
[2024-12-16] MEDS: Milk of Magnesia 30 ML ORAL.SUSP PO (14:08)
[2024-12-16 16:00] VITALS: BP 134/67; PULSE 85; RESP 18; TEMP 35.8; O2SAT 98
--- NOTE | 2024-12-16 21:51 | PC.NURSE ---
2044 Pt c/o itch all over refusing po benadryl states doesn't work asking for iv also stating po dilaudid not working asking for iv Tona SIGALA notified ordered dilauded 0.5mg iv and benadryl 25mg iv x 1 dose each.Pt medicated at 2044.
[2024-12-16] MEDS: 0.9 % Sodium Chloride Flush 3 ML SYRINGE IVFLUSH (22:27)
[2024-12-17 00:02] VITALS: BP 117/56; PULSE 83; RESP 17; TEMP 36; O2SAT 97
[2024-12-17 07:11] VITALS: BP 127/59; PULSE 82; RESP 18; TEMP 36.2; O2SAT 99
--- NOTE | 2024-12-17 09:01 | MHC.CM.PN ---
IMM 12/17/24 appeal decision upheld the discharge. Patient is discharged today to home via BLS. 12pm cone picker is scheduled. [facility] will provide home services. DC info sent to the agency.
--- NOTE | 2024-12-17 09:19 | P.F2F_ITS ---
Service Date Service Date: 12/17/24 Encounter Date of encounter: 12/17/24 Reasons for Services Signs and symptoms assessed: Wound care for foot wounds Recommendations: 1. Turn and Reposition every 2 hours and as needed for patient comfort. Use pillows or wedges to support off loading positions. 2. Off Load all bony prominences with use of pillows and heel boots if needed. Apply Preventative foams where needed. 3. Monitor for incontinence and moisture control, use barrier creams when needed for prevention and treatment. 4. Provide adequate and supplemental nutrition. 5.When applicable maintain blood glucose levels per Providers order. Right foot, Left lateral foot, Left plantar foot: cleanse with saline, apply skin prep adonay wound, apply durafiber to wound bed, cover with ABD pad, wrap with kerlix, change daily and PRN (pending general surgery intervention for left foot) Left heel: paint with betadine daily and PRN Reason for mcfp: wound care Homebound: Leaving the home is medically contraindicated at this time without the asist of a device and/or another person due th the listed conditions above and below. Reason homebound: bedbound/chairbound and weakness related to hospital stay Certification: Based on the above findings, I certify that this patient is confined to the home and needs intermittent mcfp care, physical therapy and/or speech therapy, or continues to need occupational therapy. The patient is under my care, and I have initiated the establishment of the plan of care. The patient will be followed by a physician who will periodically review the plan of care. Time Spent With Patient Time: Total time managing care of this patient today ____ minutes.
--- NOTE | 2024-12-17 10:16 | HO.WOUND ---
Wound Consult: Follow up 34 yr old female admitted to [facility] on 12/10/24- See progress notes and H&P for detailed history. Wound follow up for bilateral feet. Patient agreeable to assessment and photo documentation. Patient known to wound care from previous admissions. Patient with chronic diabetic foot wounds with history of bilateral TMA. Patient discharging home today. Left Lateral foot 12/10/24 left lateral 12/17/24 - moist boggy tissue undermining noted towards heel approximately 2cm Left plantar foot 12/10/24 left plantar 12/17/24 Right 12/10/24 foot right 12/17/24 Etiology: Diabetic foot ulcers Wound Bed: moist red Drainage / Odor: serosanguineous Edges: ? callused Adonay wound: ? No Induration, Fluctuance or Warmth noted Pain: yes Goals of Treatment: ? durafiber for drainage absorption Left heel- stable dry eschar 12/10/24 left heel 12/17/24 eschar lifted, intact scar tissue - continue betadine Recommendations: 1. Turn and Reposition every 2 hours and as needed for patient comfort. Use pillows or wedges to support off loading positions. 2. Off Load all bony prominences with use of pillows and heel boots if needed. Apply Preventative foams where needed. 3. Monitor for incontinence and moisture control, use barrier creams when needed for prevention and treatment. 4. Provide adequate and supplemental nutrition. 5. Order or Continue low air loss mattress. 6. When applicable maintain blood glucose levels per Providers order. Right foot, Left lateral foot, Left plantar foot: cleanse with saline, apply skin prep adonay wound, apply durafiber to wound bed, cover with ABD pad, wrap with kerlix, change daily and PRN (pending general surgery intervention for left foot) Left heel: paint with betadine daily and PRN Re-consult wound care Nurse for wound deterioration or wound changes.
[2024-12-17 12:21] VITALS: BP 127/60; PULSE 82; RESP 18; TEMP 36.4; O2SAT 95
--- NOTE | 2024-12-17 20:32 | P.PNNP_ITS ---
Subjective Subjective Date of Service: 12/17/24 Interval history: Seen and examined, events noted Physical Exam 2 Vital Signs: Vital Signs: Last Vital Signs Temp 97.6 F 12/17/24 12:21 Pulse 82 12/17/24 12:21 Resp 18 12/17/24 12:21 BP 127/60 12/17/24 12:21 Pulse Ox 95 12/17/24 12:21 O2 Del Method Room Air 12/17/24 12:21 O2 Flow Rate 2 12/10/24 13:22 BMI result Body Mass Index 31.7 Const: General: comfortable and no acute distress O rientation/consciousness: patient oriented x3 Neuro: General: patient oriented x3 Extrem: Other: Left foot: 2.5x2.5 cm open ulcer on the lateral aspect of the left foot. Scant purulent drainage. Exquisitely tender to light palpation. Left TMA Right foot: Dry stable wound on the medial aspect of the distal end of the remaining right foot. Right TMA Objective Data Labs 12/10/24 04:29 12/10/24 04:29 Microbiology Microbiology Results: Microbiology 12/09/24 19:29 Blood - Venous Blood Culture - Final No growth after 5 days. 12/09/24 19:09 Blood - Venous Blood Culture - Final No growth after 5 days. Procedures Date of Service Date of Service: 12/17/24 Assessment & Plan Assessment and plan (1) Noncompliance: Status: Acute (2) Opioid dependence: Status: Acute (3) PAD (peripheral artery disease): Status: Acute (4) DM foot ulcer: Status: Acute (5) Hypoglycemia: Status: Acute (6) Gastroparesis: Status: Acute (7) ESRD on dialysis: Status: Acute (8) Hyperkalemia: Status: Acute (9) Anemia: Status: Acute (10) Osteomyelitis: Status: Acute (11) Acute pain of left foot: Status: Acute (12) Cerebral microvascular disease: Status: Acute (13) Relapsing remitting multiple sclerosis: Status: Acute (14) Central pontine myelinolysis: Status: Acute Plan ESRD: cont TTS HD Nephrogenic Anemia MBD of ESRD Recurrent OSteo: dx and Tx as noted by primary team REC: cont HD TTS, Abx as noted; cont routine meds d/c planing will follow w team Time Spent With Patient Time: Total time managing care of this patient today ____ minutes. Progress Note: Quality Stroke Does the patient have a stroke diagnosis?: No
== END 2024-12-17 12:49 | disposition home health service (06) | DRG 637 ==
LOC: HO.ED 22:31 → HO.EDOVER 12-10 03:10 → HO.S3 12-10 17:19
PROVIDERS: Hospitalist; Admitting Provider Internal Medicine; Emergency Provider Emergency Medicine; PCP Student in an Organized Health Care Education/Training Program; Visit Provider Nurse Practitioner Acute Care
DX: E11.69 Type 2 diabetes mellitus with other specified complication (principal); N18.6 End stage renal disease; L03.116 Cellulitis of left lower limb; I50.22 Chronic systolic (congestive) heart failure; L97.829 Non-pressure chronic ulcer of other part of left lower leg with unspecified severity; L97.819 Non-pressure chronic ulcer of other part of right lower leg with unspecified severity; I13.2 Hypertensive heart and chronic kidney disease with heart failure and with stage 5 chronic kidney disease, or end stage renal disease; F11.20 Opioid dependence, uncomplicated; G37.2 Central pontine myelinolysis; M86.672 Other chronic osteomyelitis, left ankle and foot; M86.172 Other acute osteomyelitis, left ankle and foot; E11.628 Type 2 diabetes mellitus with other skin complications; H54.8 Legal blindness, as defined in USA; E11.51 Type 2 diabetes mellitus with diabetic peripheral angiopathy without gangrene; E11.40 Type 2 diabetes mellitus with diabetic neuropathy, unspecified; E11.22 Type 2 diabetes mellitus with diabetic chronic kidney disease; G35.A Relapsing-remitting multiple sclerosis; D63.1 Anemia in chronic kidney disease; R09.02 Hypoxemia; N25.0 Renal osteodystrophy; Z99.2 Dependence on renal dialysis; E11.319 Type 2 diabetes mellitus with unspecified diabetic retinopathy without macular edema; I70.245 Atherosclerosis of native arteries of left leg with ulceration of other part of foot; I70.239 Atherosclerosis of native arteries of right leg with ulceration of unspecified site; Z79.899 Other long term (current) drug therapy
CPT/HCPCS: 36415; 73620; 73720; 80048; 80053; 80202; 82248; 82947; 83605; 83690; 83735; 84100; 84484; 85025; 85610; 85652; 86140; 87040; 90999; 97162; 97166; 99285; A9585; J0692; J1171; J1200; J1271; J1644; J1920; J2405; J2765; J3373

== ENCOUNTER → 2024-12-09 19:30 | Outpatient (BNV) | payer OTHER, SELFPAY | PROVIDERS: PCP Student in an Organized Health Care Education/Training Program; Visit Provider Student in an Organized Health Care Education/Training Program | DX: M15.4 Erosive (osteo)arthritis (principal) | CPT/HCPCS: 73620 ==

== ENCOUNTER 2024-12-10 03:06 | Outpatient (BNV) | payer OTHER, SELFPAY | END 2024-12-11 12:21 | PROVIDERS: Admitting Provider Internal Medicine; Emergency Provider Emergency Medicine; PCP Student in an Organized Health Care Education/Training Program; Visit Provider Radiology Diagnostic Ultrasound | DX: S91.302A Unspecified open wound, left foot, initial encounter (principal) | CPT/HCPCS: 73720 ==

== ENCOUNTER → 2024-12-10 03:06 | Outpatient (BNV) | payer OTHER, SELFPAY | PROVIDERS: Admitting Provider Internal Medicine; Emergency Provider Emergency Medicine; PCP Student in an Organized Health Care Education/Training Program | DX: E11.621 Type 2 diabetes mellitus with foot ulcer (principal); L97.429 Non-pressure chronic ulcer of left heel and midfoot with unspecified severity | CPT/HCPCS: 99232 ==

== ENCOUNTER → 2024-12-10 03:06 | Outpatient (BNV) | payer OTHER, SELFPAY | PROVIDERS: Admitting Provider Internal Medicine; Emergency Provider Emergency Medicine; PCP Student in an Organized Health Care Education/Training Program; Visit Provider Internal Medicine | DX: M86.9 Osteomyelitis, unspecified (principal); E08.621 Diabetes mellitus due to underlying condition with foot ulcer; L97.429 Non-pressure chronic ulcer of left heel and midfoot with unspecified severity; N18.6 End stage renal disease; Z99.2 Dependence on renal dialysis | CPT/HCPCS: 99222 ==

== ENCOUNTER → 2024-12-10 03:06 | Outpatient (BNV) | payer OTHER, SELFPAY | PROVIDERS: Admitting Provider Internal Medicine; Emergency Provider Emergency Medicine; PCP Student in an Organized Health Care Education/Training Program; Visit Provider Internal Medicine | DX: F11.20 Opioid dependence, uncomplicated (principal); Z91.199 Patient's noncompliance with other medical treatment and regimen due to unspecified reason; I73.9 Peripheral vascular disease, unspecified; E08.621 Diabetes mellitus due to underlying condition with foot ulcer; L97.429 Non-pressure chronic ulcer of left heel and midfoot with unspecified severity; E16.2 Hypoglycemia, unspecified; R73.9 Hyperglycemia, unspecified; T38.0X5A Adverse effect of glucocorticoids and synthetic analogues, initial encounter; K31.84 Gastroparesis; N19 Unspecified kidney failure; N18.6 End stage renal disease; Z99.2 Dependence on renal dialysis; E87.5 Hyperkalemia; D64.9 Anemia, unspecified; M86.9 Osteomyelitis, unspecified; L97.529 Non-pressure chronic ulcer of other part of left foot with unspecified severity; I67.89 Other cerebrovascular disease; G35 Multiple sclerosis; G37.2 Central pontine myelinolysis | CPT/HCPCS: 99233 ==

== ENCOUNTER 2024-12-19 12:43 | Emergency (ER) | payer OTHER, SELFPAY ==
[2024-12-19 12:50] VITALS: BP 172/95; PULSE 88; O2SAT 99
[2024-12-19 12:52] VITALS: BP 166/82; PULSE 90; RESP 18; TEMP 36.6; O2SAT 97; BMI 31.2
[2024-12-19 12:57] VITALS: BP 166/82; PULSE 90; RESP 18; TEMP 36.6; O2SAT 97
--- NOTE | 2024-12-19 12:57 | ED.WOUNDLAC ---
HPI - Wound/Laceration General Chief Complaint: Wound/Laceration Stated Complaint: HERE WED. FOR OPEN WOUND, NOW W PAIN AND ODOR Time Seen by Provider: 12/19/24 12:54 Source: patient Limitations: no limitations History of Present Illness ED Provider: Dr. 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 Patient was hospitalized from 12/10/2024 until 12/19/2024 (discharged 2 days prior). Patient was treated for left foot wound infection associated with a possible base of 5th metatarsal osteomyelitis-not requiring surgical intervention, discharged on 2 week course of Doxycycline b.i.d. patient states that since being home she has had nausea and vomiting in his not been old hold down her doxycycline or other medications. She states that she was prescribed oxycodone but he has not been able to take this medication for her pain. Patient states she is having 10/10 pain in her left foot along the lateral aspect. She also states that there is a purulent drainage. She denied fever, chills, chest pain, shortness of breath. The patient does get dialysis on Tuesdays, and Saturdays. She states that she had her full dialysis yesterday without any difficulty. Surgical consult on 12/12/2024 recommended 6 weeks of IV antibiotics versus possible left BKA if she failed antibiotic treatment. Infectious disease consult on 12/12/2024 felt that the patient had chronic osteomyelitis and recommended doxycycline 100 mg b.i.d. for 2 weeks. Related Data Home Medications ?Medication ?Instructions ?Recorded ?Confirmed albuterol sulfate 90 mcg/actuation 2 puff inhalation Q6H PRN wheezing 01/15/24 12/10/24 aerosol inhaler (Ventolin HFA) lidocaine 5 % topical patch 1 patch topical DAILY PRN Pain 01/15/24 12/10/24 nitroglycerin 0.4 mg sublingual 0.4 mg sublingual DIRECTED PRN 01/15/24 12/10/24 tablet Angina acetaminophen 325 mg tablet 650 mg PO Q4H PRN mild pain 03/11/24 12/10/24 calcium carbonate (Tums) 200 mg PO TIDWM PRN Acid Reflux 07/03/24 12/10/24 Previous Rx's ?Medication ?Instructions ?Recorded carvedilol 12.5 mg tablet 12.5 mg PO BID 90 days #180 tabs 12/16/23 hydralazine 50 mg tablet 50 mg PO TID 90 days #270 tabs 12/16/23 blood sugar diagnostic (FreeStyle #100 ea 08/26/24 Lite Strips) blood-glucose meter (FreeStyle #1 ea 08/26/24 Lite Meter kit) lancets 28 gauge (FreeStyle #100 ea 08/26/24 Lancets) pen needle, diabetic 32 gauge x #100 ea 08/26/2403/01 oxycodone 5 mg tablet 5 mg PO Q8H PRN pain #15 tabs 09/10/24 fidaxomicin 200 mg tablet (Dificid) 200 mg PO Q12H #22 tabs 11/04/24 doxycycline hyclate 100 mg tablet 100 mg PO BID #28 tabs 12/15/24 hydromorphone 4 mg tablet 4 mg PO Q6H PRN pain #20 tabs 12/19/24 (Dilaudid) metoclopramide HCl 10 mg tablet 10 mg PO Q6H PRN nausea and 12/19/24 (Reglan) vomiting #14 tabs Allergies Allergy/AdvReac Type Severity Reaction Status Date / Time gabapentin Allergy Severe Facial Verified 12/19/24 12:56 Swelling tramadol Allergy Severe Facial Verified 12/19/24 12:56 Swelling azithromycin (From Zithromax) Allergy Intermediate Hives Verified 12/19/24 12:56 morphine (MORPHINE) Allergy Intermediate Itching Verified 12/19/24 12:56 Review of Systems Review of Systems: Yes all other systems are reviewed and are negative PMFSH Past Medical History Medical History Multiple sclerosis Cerebral infarction Hyperkalemia ESRD on dialysis Hypoxia End stage renal disease on dialysis Chronic ulcer of right foot due to diabetes mellitus Chronic ulcer of left foot due to diabetes mellitus DM foot ulcer ESRD on hemodialysis Hypotonic neurogenic bladder Diabetic polyneuropathy Hypertensive emergency Decompensated heart failure Renal failure Hypertension, uncontrolled Medical non-compliance Pericarditis Unspecified hypertension, condition or complication Metabolic acidosis Gastroparesis End stage chronic kidney disease Chronic kidney disease Anemia Plantar ulcer of left foot MDD (major depressive disorder) CKD (chronic kidney disease) Hypertension Vomiting Chronic pain Non-compliance with renal dialysis End-stage renal disease (ESRD) Diabetic foot ulcer associated with type 2 diabetes mellitus Cardiomyopathy HFrEF (heart failure with reduced ejection fraction) delivery delivered Anemia in chronic kidney disease (CKD) CKD (chronic kidney disease) Abnormal finding on echocardiogram Elevated troponin Acute worsening of stage 3 chronic kidney disease Generalized edema Sepsis Cellulitis Pleural effusion Atypical chest pain Bone infection PAD (peripheral artery disease) Cellulitis and abscess of foot Osteomyelitis Asthma Depression with anxiety Diabetic retinopathy Blind right eye Diabetes Back pain Surgical History Tubal ligation status Previous section Hx laparoscopic cholecystectomy Hx of surgical procedure (~09/11/23) 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 Family History Family History Mother Coronary artery disease Myocardial infarction Stroke Diabetes mellitus Father Myocardial infarction Social History Social History Household Members: Family and Caregiver Household Members Other:: sister, brother, [id number] Housing: Apartment Housing Other:: Apartment, 1st floor Are you a primary morning caregiver to a significant other at home: No Do you presently have visiting nurse or other home services: No Alcohol intake: never Comment: Intermittently refuses Patient Tobacco Use Status: Never used Tobacco Smoked in Last 30 Days: No e-Cigarette/Vaping Use: Never Used Second Hand Smoke Exposure: No Use of substances other than those prescribed or required for medical reasons: No Advance Directives: Yes Advance Directives on File: Yes Advance Directives Date on File: 08/28/23 Do you have a plan to hurt others: No Plan Patient : No service: No Current occupational status: unemployed and disabled Gender identity: Female Physical Exam Vital Signs: Vital Signs: Last Vital Signs Temp 98 F 12/19/24 12:57 Pulse 92 12/19/24 16:20 Resp 14 12/19/24 16:20 BP 164/69 H 12/19/24 16:20 Pulse Ox 96 10/24/25 16:20 O2 Del Method Room Air 12/19/24 16:20 BMI result Body Mass Index 31.2 Vital signs revealed an elevated blood pressure of 166/82 Exam: General: Awake, alert in no distress, the patient is legally blind and can only see shadows with her left eye Head: Normocephalic, atraumatic EENT: PERRL, sclera and conjunctiva are normal, mouth with no erythema or exudates Neck: Supple, no adenopathy Lung: breath sounds symmetric, no wheezing, no rales and no rhonchi Chest: symmetric movement, nontender Heart: regular rate and rhythm, normal S1, S2 no murmurs or rubs Abdomen: soft, non-tender, nondistended, normal bowel sounds Back: no vertebral tenderness, no CVAT Extremities: Left foot revealed a chronic appearing ulcer on the dorsal aspect of the foot, patient has a lateral ulcer which is not draining at this time, is tender to palpation. Neuro: Awake, alert, oriented, normal speech, cranial nerves 2-12 intact, moves all extremities symmetrically Psych: Pleasant, cooperative Medications Administered Discontinued Medications Generic Name Dose Route Start Last Admin Trade Name Freq PRN Reason Stop Dose Admin Diphenhydramine HCl 25 mg 12/19/24 13:19 12/19/24 14:00 Diphenhydramine Hcl 50 Mg/Ml Vial IVPUSH 12/19/24 13:20 25 mg ONCE STA Administration Diphenhydramine HCl 25 mg 12/19/24 16:29 12/19/24 16:37 Diphenhydramine Hcl 50 Mg/Ml Vial IVPUSH 12/19/24 16:30 25 mg ONCE ONE Administration Hydromorphone HCl 1 mg 12/19/24 13:19 12/19/24 14:00 Hydromorphone Hcl 1 Mg/Ml Syringe IVPUSH 12/19/24 13:20 1 mg ONCE STA Administration Protocol Hydromorphone HCl 1 mg 12/19/24 14:49 12/19/24 15:00 Hydromorphone Hcl 1 Mg/Ml Syringe IVPUSH 12/19/24 14:50 1 mg ONCE STA Administration Protocol Hydromorphone HCl 1 mg 12/19/24 17:21 12/19/24 17:31 Hydromorphone Hcl 1 Mg/Ml Syringe IVPUSH 12/19/24 17:22 1 mg ONCE STA Administration Protocol Sodium Chloride 1,000 mls @ 999 mls/hr 12/19/24 13:19 12/19/24 14:48 Ns IV 12/19/24 14:19 Infused .Q1H1M STA Infusion Metoclopramide HCl 10 mg 12/19/24 17:21 12/19/24 17:31 Metoclopramide Hcl 10 Mg/2 Ml Vial IVPUSH 12/19/24 17:22 10 mg ONCE STA Administration Medical Decision Making Medical Decision Making MDM Narrative: 34-year-old female with past medical history significant for PAD s/p bilateral TMA 2/2 osteomyelitis, ESRD HD TTS, chronic opioid addiction, T2 DM uncontrolled history of C diff, peripheral arterial disease, HFrEF, relapsing remitting multiple sclerosis versus central pontine myelinolysis, chronic anemia who presents emergency department for evaluation of foul drainage from left lower extremity wound. Patient was hospitalized from 12/10/2024 until 12/19/2024 (discharged 2 days prior). Patient was treated for left foot wound infection associated with a possible base of 5th metatarsal osteomyelitis with both ID and surgery consults obtained during that admission. Surgical consult discuss possible BKA if patient did not improve and 6 weeks IV recommended. ID consult felt that the patient may have chronic osteomyelitis and recommended 2 weeks of oral doxycycline. Patient states that she has not been able to hold down her medications and she believes that secondary to the oral doxycycline. She is also complaining of increased pain in her left foot. Vital signs revealed an elevated blood pressure otherwise unremarkable. Patient does have tenderness palpation of her left but no obvious drainage at this time no increased erythema. Differential diagnosis: ?Includes but is not limited to left foot abscess/cellulitis/osteomyelitis, nausea and vomiting secondary to doxycycline, volume depletion, dehydration, electrolyte abnormalities, anemia Course: 15:38 My independent interpretation patient's laboratory evaluation is as follows: WBC was normal 5700. Patient has chronic normocytic anemia with an H&H of 10.3 and 32.2. Low platelet count a 116,000-chronic. Potassium high 5.4. BUN and creatinine elevated 60 and 8.53 consistent with her chronic renal disease -patient was dialyzed yesterday. CRP elevated 0.84. ESR elevated 54 Patient was treated with Dilaudid 1 mg IV x2 and normal saline IV x1 L. The patient is concerned that she can not take oral antibiotics to treat the infection, she is also concerned that her pain has significantly increased since being discharged from the hospital. At this time I do not think that the patient can take oral antibiotics and may need to be readmitted to start IV antibiotics for possible acute/chronic osteomyelitis. Patient also told me that she would consider [id number] amputation to treat the osteomyelitis. I did discuss the patient's presentation with the covering hospitalist, physician family services assistant, Angela Ulloa. She states that she will evaluate to help determine disposition and further treatment. 18:45 I did discuss the patient's presentation over tiger text with the covering hospitalist, Dr. Diane requested that I consult the infectious disease , Dr. Diallo to see if the patient required admission for IV antibiotics. Dr. Diallo's recommendation was to stop the patient's doxycycline since she had not think that he had cellulitis based on the images that I sent to her over tiger text. The patient told me that she is tired of having chronic pain in her leg and wants a [id number] amputation as discussed with her by her surgeon, Dr. Rajput. I did discuss the patient's presentation with the covering surgeon Dr. Celestin. She recommended controlling the patient's pain and nausea, discharging the patient to home and follow up as an outpatient with Dr. Rajput to discuss possible BKA as an outpatient I did discuss these opinions with the patient and she agreed with the discharge plan. Patient did require 2 were doses of Dilaudid 1 mg IV and Reglan 10 mg IV to control her pain. Patient will be discharged by ambulance. She was given printed and verbal instructions. I did prescribe Dilaudid 4 mg pills, 1 pill every 6 hours as needed for pain and Reglan 10 mg every 6 hours as needed for nausea and vomiting. Differential Diagnosis Differential Diagnoses: The differential diagnosis associated with the presentation includes (See above) Admission/Observation Consideration of admission/observation: Escalation of care including admission/observation considered (Your) Consult Healthcare Provider Management of the patient was discussed with: Hospitalist (Adelina Diane) and Conditioning Room Worker (Infectious disease specialist, Dr. Diallo; surgeon on-call, Dr. Celestin) Lab Data 12/19/24 13:33 12/19/24 13:33 Labs: Lab Results 10/24/25 Range/Units 13:33 WBC 5.7 (4.8-10.8) X10*3/uL RBC 3.36 L (4.20-5.50) X10*6/uL Hgb 10.3 L (12.0-16.0) g/dl Hct 32.2 L (37.0-47.0) % MCV 95.8 (80.0-98.0) fL MCH 30.7 (27.0-33.0) pg MCHC 32.0 (31.0-35.0) g/dl RDW 14.3 (11.0-16.0) % Plt Count 116 L (160-400) X10*3/uL MPV 11.3 (9.4-12.3) fL Immature Gran % (Auto) 0.4 (0.0-0.4) % Neut % (Auto) 68.9 (45-73) % Lymph % (Auto) 13.9 L (20-40) % Faulkner % (Auto) 13.2 H (2-11) % Eos % (Auto) 3.2 (0-4) % Baso % (Auto) 0.4 (0-2) % Lymph # (Auto) 0.8 L (1.2-4.9) X10*3/uL Faulkner # (Auto) 0.8 (0.1-1.2) X10*3/uL Eos # (Auto) 0.2 (0.0-0.4) X10*3/uL Baso # (Auto) 0.0 (0.0-0.2) X10*3/uL Abs Immat Gran (auto) 0.02 (0.00-0.03) X10*3/uL Absolute Neuts (auto) 3.9 (2.0-8.3) x10*3/uL Absolute Nucleated RBC 0.000 (0.0-0.012) X10*3/uL Nucleated RBC % (auto) 0.0 (0.0-0.2) /100WBC ESR 54 H (0-20) MM/HR APTT 34.0 (26.7-34.1) SEC Sodium 140 (135-145) mmol/L Potassium 5.4 H (3.3-5.1) mmol/L Chloride 103 (96-108) mmol/L Carbon Dioxide 25 (22-29) mmol/L Anion Gap 17 (12-20) BUN 60 H (9-16) mg/dL Creatinine 8.83 H* (0.5-1.4) mg/dL Estim Creat Clear Calc 9.8 Estimated GFR 5 Random Glucose 161 H (60-115) mg/dL Lactic Acid 1.9 (0.5-2.0) mmol/L Calcium 8.8 D (8.4-10.2) mg/dL Total Bilirubin 0.7 (0.0-1.0) mg/dL AST 27 (5-31) U/L ALT 18 (0-31) U/L Alkaline Phosphatase 141 H (39-117) U/L C-Reactive Protein 0.84 H (< or = 0.50) mg/dL Total Protein 7.7 (6.5-8.0) g/dL Albumin 4.1 (3.5-5.0) g/dL Lipase 37 (8-78) U/L Critical Care Time Critical Care Time Critical Care Time: Yes Total Critical Care Time: 35 Attestation: Critical Care: The patient was critically ill with a high probability of imminent or life threatening deterioration. I spent greater than 30 minutes of discontinuous time evaluating the patient,delivering critical care at the bedside, discussing and evaluating pertinent data with consultants. Critical care time does not include time spent performing separately billable procedures or teaching. Total time spent performing critical care was 35 minutes. Discharge Plan Discharge Clinical Impression: Acute pain of left foot, Nausea & vomiting, Chronic osteomyelitis of left foot Patient Disposition: Home, Self-Care Additional Instructions: I did discuss your presentation with the covering infectious disease doctor, Dr. Diallo. At this time she thinks that the infection of your bone is a longstanding infection and you do not need IV antibiotics. I also discuss your presentation with the covering surgeon, Dr. Celestin. She recommends that you follow up with Dr. Rajput as an outpatient to discuss possible [id number] amputation for your chronic foot pain Continue taking your medications as prescribed by your providers Take Tylenol (acetaminophen) 2 pills every 6 hours as needed for pain. For pain not relieved by Tylenol take Dilaudid (hydromorphone) 4 mg pills, 1 pill every 6 hours as needed for pain. This medication will make you sleepy, do not drive or work while taking this medication. Dilaudid (hydromorphone) is a narcotic medication and can be addicting. If you are concerned about addiction you can ask the pharmacist for less pills or do not get this prescription filled. Take Reglan (metoclopramide) 10 mg pills, 1 pill every 6 hours as needed for nausea and vomiting. Follow-up with Dr. Rajput's office. The office staff should reach out to you however I want you to call them on Sunday morning to make a follow up appointment Please return to the emergency department if your symptoms get worse or if you develop any symptoms that are concerning to you. Prescriptions: New hydromorphone [Dilaudid] 4 mg tablet 4 mg PO Q6H PRN (Reason: pain) Qty: 20 0RF Rx Instructions: Partial Fill upon patient request. metoclopramide HCl [Reglan] 10 mg tablet 10 mg PO Q6H PRN (Reason: nausea and vomiting) Qty: 14 0RF No Action carvedilol 12.5 mg Tablet 12.5 mg PO BID 90 Days Qty: 180 0RF Protocol: Hold for SBP/HR < HOLD for SBP < : 90 HOLD for HR < : 60 hydralazine 50 mg Tablet 50 mg PO TID 90 Days Qty: 270 0RF Protocol: Hold for SBP< HOLD for SBP < : 90 acetaminophen 325 mg tablet 650 mg PO Q4H PRN (Reason: mild pain) (DME) FreeStyle Lite Strips Strip Qty: 100 0RF Rx Instructions: Test four times a day or as directed. (DME) blood-glucose meter [FreeStyle Lite Meter] Kit Qty: 1 0RF Rx Instructions: As Directed (DME) pen needle, diabetic 32 gauge x 1/4 needle Qty: 100 0RF Rx Instructions: Use four times a day or as directed. (DME) lancets [FreeStyle Lancets] 28 gauge misc Qty: 100 0RF Rx Instructions: Test four times a day or as directed. oxycodone 5 mg tablet 5 mg PO Q8H PRN (Reason: pain) Qty: 15 0RF Rx Instructions: Partial Fill upon patient request. lidocaine 5 % adhesive patch,medicated 1 patch topical DAILY PRN (Reason: Pain) nitroglycerin 0.4 mg tablet, sublingual 0.4 mg sublingual DIRECTED PRN (Reason: Angina) albuterol sulfate [Ventolin HFA] 90 mcg/actuation HFA aerosol inhaler 2 puff inhalation Q6H PRN (Reason: wheezing) calcium carbonate [Tums] 200 mg calcium (500 mg) Tablet,Chewable 200 mg PO TIDWM PRN (Reason: Acid Reflux) fidaxomicin [Dificid] 200 mg Tablet 200 mg PO Q12H Qty: 22 0RF doxycycline hyclate 100 mg tablet 100 mg PO BID Qty: 28 0RF Print Language: Slovenian
--- NOTE | 2024-12-19 12:58 | PC.NURSE ---
34 F presents to ED with wounds on L foot, no active bleeding but some pus drainage per patient, 10 pain. Pt d/c'd on sunday and pain got worse since and drainage was odorous per patient. No odor noted at this time. dressing taken down, was very tight on wound. A+OX4, calm, cooperative. Pt is blind, normally 1 assist to wheelchair and to get around in a wheelchair. Partial amputation noted to left foot. Pt has diabetes but does not take any medications. RR even unlabored, denies CP or SOB.
--- NOTE | 2024-12-19 13:12 | PC.NURSE ---
pt reports being on 2L NC at home, mostly at night. pt O2 sat at 99% on RA at this time.
[2024-12-19 13:37] LABS: MANUAL DIFF FLAG NO
[2024-12-19 13:40] LABS: Hematocrit 32.2 % (37.0-47.0); Hemoglobin 10.3 g/dl (12.0-16.0); Imm Gran Abs Auto 0.02 X10*3/uL (0.00-0.03); Imm Gran Pct Auto 0.4 % (0.0-0.4); Lymphocytes Absolute Auto 0.8 X10*3/uL (1.2-4.9); Mean Corpuscular HGB Conc 32.0 g/dl (31.0-35.0); Mean Corpuscular Hemoglobin 30.7 pg (27.0-33.0); Mean Corpuscular Volume 95.8 fL (80.0-98.0); NRBC Abs Auto 0.000 X10*3/uL (0.0-0.012); NRBC Pct Auto 0.0 /100WBC (0.0-0.2); Platelet Count 116 X10*3/uL (160-400); Red Blood Count 3.36 X10*6/uL (4.20-5.50); White Blood Count 5.7 X10*3/uL (4.8-10.8)
[2024-12-19 13:49] LABS: Partial Thromboplastin Time 34.0 SEC (26.7-34.1)
[2024-12-19 14:03] LABS: Alanine Aminotransferase 18 U/L (0-31); Albumin Level 4.1 g/dL (3.5-5.0); Alkaline Phosphatase 141 U/L (39-117); Anion Gap 17 (12-20); Aspartate Amino Transferase 27 U/L (5-31); Blood Urea Nitrogen 60 mg/dL (9-16); Calcium 8.8 mg/dL (8.4-10.2); Carbon Dioxide 25 mmol/L (22-29); Chloride 103 mmol/L (96-108); Creatinine Clr Calc Pharmacy 9.8; Estimated Glomerular Filt Rate 5; Lipase 37 U/L (8-78); Potassium 5.4 mmol/L (3.3-5.1); Sodium 140 mmol/L (135-145); Total Protein 7.7 g/dL (6.5-8.0)
[2024-12-19 14:23] LABS: Erythrocyte Sedimentation Rate 54 MM/HR (0-20)
--- OUTSIDE RECORDS SUMMARY | 2024-12-19 15:42 | XMS_ITS | Encounter Summary ---
Author Organization [employer] Address [address] [place] [address] Care Team Providers Care Health And Safety Representative Name Role Phone Genevieve Gtz MD Primary Care Pro vider Encounter Details Date Type Department Care Team (Late st Contact Info) Description 01/21/2024 Telephone [facility] MED[facility]INE [address] [place], [place] [phone] Genevieve Gtz MD [address] [place], [place] [phone] Social History Tobacco Use Types Packs/Day Years [...] Oxycodone 5mg , pt requests a callback [phone] documented in this encounter Plan of Treatment Upcoming Encounters Date Type Department Care Team (Late st Contact Info) Description 12/31/2024 10:00 AM EST Telemedicine [facility] [address] [place] [address] Paola Thurston RN [address] [place] [address] 02/11/2025 2:45 PM EST Clinical Support [facility] [address] [place] [address] Paola Thurston RN [address] [place] [address] documented as of this encounter Goals Goal [...] documented as of this encounter Care Teams Health And Safety Representative Relationship Specialty Start Date End Date Genevieve Gtz MD [address] [place] [phone] PCP - General Internal Medicine 10/12/22 documented as of this encounter
--- OUTSIDE RECORDS SUMMARY | 2024-12-19 15:42 | XMS_ITS | Clinical Summary ---
Author Organization [employer] Address [address] [facility] [address] [place] [address] Care Team Providers Care Chemical Research Technician Name Role Phone Genevieve Gtz MD [...] PLEASE SEE ATTACHED FOR DETAILED DIRECTIONS 12/01/19 Active naloxone (Narcan) 4 mg/0.1 mL nasal [...] PAIN 120 tablet 2 02/28/19 25 Active carvedilol (Coreg) 12.5 MG tabletIndicatio ns:Benign essential hypertension TAKE 1 TABLET BY MOUTH TWICE A DAY 180 tablet 12/16/19 25 Active hydrALAZINE (Apresoline) 50 MG tabletIndicatio ns:Benign essential hypertension Take 1 tablet (50 mg) by mouth 3 times daily. 270 tablet 12/16/19 25 Active oxyCODONE (Roxicodone) 5 MG immediate release tabletIndicatio ns:Chronic ulcer of left foot due to diabetes mellitus (HCC) Take 1 tablet (5 mg) by mouth every 8 (eight) hours if needed for severe pain for up to 14 days. Do not start before December 17, 2024. 42 tablet 12/18/19 25 2024 Active hydrALAZINE (Apresoline) 50 MG tabletIndicatio ns:Benign essential hypertension Take 1 tablet (50 mg) by mouth 3 times daily. 270 tablet 01/02/20 24 2024 Discontinued(R eorder (will not trigger notification to Pharmacy)) carvedilol (Coreg) 12.5 MG tabletIndicatio ns:Benign essential hypertension TAKE 1 TABLET BY MOUTH TWICE A DAY 180 tablet 01/02/20 24 2024 Discontinued(R eorder (will not trigger notification [...] severe pain for up to 14 days. Do not start before December 06, 2024. 42 tablet 12/07/19 25 2024 Discontinued(R eorder (will not trigger notification to Pharmacy)) Active Problems Problem Noted Date Diagnosed Date Multiple sclerosis 09/17/2024 Acute hyperkalemia 09/04/2024 Cerebral infarction 09/04/2024 MDD (major depressive disorder), recurrent episo de 09/04/2024 Hyponatremia 09/04/2024 PAD (peripheral artery disease) 09/04/2024 Prolonged QT interval 09/04/2024 Toe necrosis ([facility]) 09/04/2024 Ulcer of left second toe 09/04/2024 Vitreous detachment 09/04/2024 Volume overload 09/04/2024 Opioid dependence 09/04/2024 Seizure disorder ([facility]) 09/04/2024 Long-term current use of opiate analgesic 2024 Neurogenic bladder 03/07/2024 Bacteremia due to Pseudomonas 01/03/2024 Infection due to 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 ([facility]) 10/23/2023 Seizure ([facility]) 10/23/2023 Opioid dependence with opioid-induced disorder ( [facility]) 10/23/2023 Blindness of both eyes 10/23/2023 Uncontrolled [...] TID. Needs clarification and new rx. Encounters * This document contains information received from the source organization and may not represent a complete record from that organization. Date Type Department Care Team Description 12/19/2024 Orders Only GENERIC EXTERNAL DATA DEPARTMENT Provider, Generic External Data 12/15/2024 Refill [facility] [address] [place] [address] Paola Thurston RN Chronic ulcer of left foot due to diabetes mellitus (HCC) 12/15/2024 Telephone [facility] [address] [place] [address] Genevieve Gtz MD Med Refill 12/15/2024 Refill [facility] [address] [place] [address] Genevieve Gtz MD Benign essential hypertension 12/10/2024 Orders Only [facility] External Provider, [facility] 12/09/2024 Orders Only GENERIC EXTERNAL DATA DEPARTMENT Provider, Generic External Data 12/04/2024 Refill [facility] [address] [place] [address] Paola Thurston RN Chronic ulcer of left foot due to diabetes mellitus (HCC) 12/04/2024 Telephone [facility] [address] [place] [address] Genevieve Gtz MD Med Refill 12/01/2024 2:30 PM EDT Telemedicine [facility] [address] [place] [address] Paola Thurston RN Long-term current use of opiate analgesic 12/01/2024 Travel 11/25/2024 Telephone [facility] [address] [place] [address] Genevieve Gtz MD chart prep 11/21/2024 Orders Only [facility] [address] [place] [phone] Genevieve Gtz MD Chronic ulcer of left foot due to diabetes mellitus ([facility]) 11/21/2024 Refill [facility] [address] [place] [address] Paola Thurston RN Chronic ulcer of left foot due to diabetes mellitus ([facility]) 11/21/2024 Telephone [facility] [address] [place] [address] Genevieve Gtz MD Med Refill 11/20/2024 Telephone [facility] [address] [place] [address] Paola Thurston RN 11/19/2024 3:15 PM EDT Clinical Support [facility] [address] [place] [address] Paola Thurston RN Long-term current use of opiate analgesic (Primary Dx) 11/19/2024 Orders Only [facility] [address] [place] [phone] Genevieve Gtz MD 11/19/2024 Telephone [facility] [address] [place] [address] Paola Thurston RN 11/19/2024 Travel 11/11/2024 Telephone [facility] [address] [place] [phone] Genevieve Gtz MD Medication Question 11/10/2024 Patient Outreach [facility] [address] [place] [address] Genevieve Gtz MD Pre-visit Planning (HDF scheduled. ) 11/10/2024 Telephone [facility] [address] [place] [address] Genevieve Gtz MD telephone call 11/06/2024 Telephone [facility] [address] [place] [phone] Genevieve Gtz MD FYI 10/24/2024 Travel 10/24/2024 Telephone [facility] [address] [place] [address] Paola Thurston RN 10/23/2024 Refill [facility] [address] [place] [address] Paola Thurston, engine testing supervisor ulcer of 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 ([facility]); Chronic wound 10/23/2024 Telephone [facility] [address] [place] [address] Genevieve Gtz MD Med Refill 09/25/2024 Telephone [facility] [address] [place] [address] Genevieve Gtz MD chart prep from Last 3 Months Immunizations Immunization Administration [...] Info) Description 12/31/2024 10:00 AM EST Telemedicine [facility] [address] [place] [address] Paola Thurston RN [address] [place] [address] 02/11/2025 2:45 PM EST Clinical Support [facility] [address] [place] [address] Paola Thurston RN [address] [place] [address] Health Maintenance Due Date Last Done Comments [...] Procedure Name Priority Date/Time Associated Diagnosis Comments HOLD GREEN GEL Routine 12/19/2024 1:42 PM EDT SED RATE BY MODIFIED WESTERGREN Routine 12/19/2024 1:33 PM EDT LIPASE Routine 12/19/2024 1:33 PM EDT C-REACTIVE PROTEIN Routine 12/19/2024 1: 33 PM EDT COMPREHENSIVE METABOLIC PANEL Routine 12/19/2024 1:33 PM EDT LACTIC ACID Routine 12/19/2024 1:33 PM EDT APTT Routine 12/19/2024 1:33 PM EDT CBC WITH AUTO DIFFERENTIAL Routine 12/19/2024 1:33 PM EDT MR FOOT W AND WO CONTRAST LEFT Routine 12/11/2024 12:21 PM EDT SED RATE BY MODIFIED WESTERGREN Routine 12/09/2024 11:42 PM EDT XR FOOT 1-2 VIEWS LEFT Routine 8:38 PM EDT LACTIC ACID Routine 12/09/2024 7:09 PM EDT CBC WITH AUTO DIFFERENTIAL Routine 12/09/2024 7:08 PM EDT PROTHROMBIN TIME-INR Routine 12/09/2024 7:08 PM EDT HIGH SENSITIVITY TROPONIN I Routine 12/09/2024 7:08 PM EDT LIPASE Routine 12/09/2024 7:08 PM EDT MAGNESIUM Routine 12/09/2024 7:08 PM EDT HEPATIC FUNCTION PANEL Routine 7:08 PM EDT COMPREHENSIVE METABOLIC PANEL Routine 12/09/2024 7:08 PM EDT DRUG TOXICOLOGY MONITORING BASE PANEL, WITH CONFIRMATION, ORAL FLUID Routine 11/19/2024 12:00 AM EDT HEPATITIS C AB W/REFL TO [...] Recently Relevant to Health Maintenance Results * Hold Green Gel (12/19/2024 1:42 PM EDT) Hold Green Gel See Note [facility] Comment:Specimen held untest ed for 24 hours; Call to requestChemistry testing. 12/19/2024 1:42 PM EDT 12/19/2024 1:49 PM EDT us Generic External Data Provider HISTORICAL/NON OR DERABLE LABS Final Result [facility] [address] [place] [address] [phone] * (ABNORMAL) CBC auto differential (12/19/2024 1:33 PM EDT) Only the most recent of2 resultswithin the time period is included. White Blood Count 5.7 4.8 - 10.8 X10*3/uL [facility] Red Blood Count 3.36(L) 4.20 - 5.50 X10*6/uL [facility] Hemoglobin 10.3(L) 12.0 - 16.0 g/dl [facility] Hematocrit 32.2(L) 37.0 - 47.0 % [facility] Mean Corpuscular Volume 95.8 80.0 - 98.0 fL [facility] Mean Corpuscular Hemoglobin 30.7 27.0 - 33.0 pg [facility] Mean Corpuscular HGB Conc 32.0 31.0 - 35.0 g/dl [facility] Red Cell Distribution Width 14.3 11.0 - 16.0 % [facility] Platelet Count 116(L) 160 - 400 X10*3/uL [facility] Mean Platelet Volume 11.3 9.4 - 12.3 fL [facility] Neutrophils Percent Auto 68.9 45 - 73 % [facility] Imm Gran Pct Auto 0.4 0.0 - 0.4 % [facility] Lymphocytes Percent Auto 13.9(L) 20 - 40 % [facility] Monocytes Percent Auto 13.2(H) 2 - 11 % [facility] Eosinophils Percent Auto 3.2 0 - 4 % [facility] Basophils Percent Auto 0.4 0 - 2 % [facility] NRBC Pct Auto 0.0 0.0 - 0.2 /100WBC [facility] Neutrophils Absolute Auto 3.9 2.0 - 8.3 x10*3/uL [facility] Imm Gran Abs Auto 0.02 0.00 - 0.03 X10*3/uL [facility] Lymphocytes Absolute Auto 0.8(L) 1.2 - 4.9 X10*3/uL [facility] Monocytes Absolute Auto 0.8 0.1 - 1.2 X10*3/uL [facility] Eosinophils Absolute Auto 0.2 0.0 - 0.4 X10*3/uL [facility] Basophils Absolute Auto 0.0 0.0 - 0.2 X10*3/uL [facility] NRBC Abs Auto 0.000 0.0 - 0.012 X10*3/uL [facility] 12/19/2024 1:33 PM EDT 12/19/2024 1:36 PM EDT us Generic External Data Provider LAB BLOOD ORDERAB LES Final Result [facility] [address] [place] [phone] * Partial Thromboplastin Time, Activated (APTT) (12/19/2024 1:33 PM EDT) Partial Thromboplastin Time 34.0 26.7 - 34.1 SEC [facility] 12/19/2024 1:33 PM EDT 12/19/2024 1:36 PM EDT Generic External Data Provider LAB BLOOD ORDERAB LES Final Result Performing Organization Address [facility] Co de Phone Number [facility] [address] [place] [phone] * (ABNORMAL) Sed Rate by Modified Pacoergren (12/19/2024 1:33 PM EDT) Only the most recent of2 resultswithin the time period is included. [facility] Erythrocyte Sedimentation Rate 54(H) 0 - 20 MM/HR [facility] Comment:Patients with polycy themia and many hemoglobin abnormalitiesmay have depressed sed rates whereas patients with anemiamay have elevated sed rates. 12/19/2024 1:33 PM EDT 12/19/2024 1:36 PM EDT Generic External Data Provider LAB BLOOD ORDERAB LES Final Result Performing Organization Address [facility] Phone Number [facility] [address] [place] [phone] * (ABNORMAL) C-reactive Protein (12/19/2024 1:33 PM EDT) Pathologist [facility] C Reactive Protein 0.84(H) < or = 0.50 mg/dL [facility] 12/19/2024 1:33 PM EDT 12/19/2024 1:36 PM EDT Generic External Data Provider LAB BLOOD ORDERAB LES Final Result Performing Organization Address [facility] Co de Phone Number [facility] [address] [place] [phone] * Lipase (12/19/2024 1:33 PM EDT) Only the most recent of2 resultswithin the time period is included. Lipase 37 8 - 78 U/L [facility] 12/19/2024 1:33 PM EDT 12/19/2024 1:36 PM EDT Generic External Data Provider LAB BLOOD ORDERAB LES Final Result Performing Organization Address City/[facility]/ZIP Co de Phone Number [facility] [address] [place] [phone] * Lactic Acid (12/19/2024 1:33 PM EDT) Only the most recent of2 resultswithin the time period is included. Pathologist [facility] Lactic Acid 1.9 0.5 - 2.0 mmol/L [facility] 12/19/2024 1:33 PM EDT 12/19/2024 1:36 PM EDT Generic External Data Provider LAB BLOOD ORDERAB LES Final Result Performing Organization Address [facility] Co de Phone Number [facility] [address] [place] [phone] * (ABNORMAL) Comprehensive Metabolic Panel (12/19/2024 1:33 PM EDT) Only the most recent of2 resultswithin the time period is included. Sodium 140 135 - 145 mmol/L [facility] Potassium 5.4(H) 3.3 - 5.1 mmol/L [facility] Chloride 103 96 - 108 mmol/L [facility] Carbon Dioxide 25 22 - 29 mmol/L [facility] Anion Gap 17 12 - 20 [facility] Urea Nitrogen (BUN) 60(H) 9 - 16 mg/dL [facility] Creatinine, Serum 8.83(HH) 0.5 - 1.4 mg/dL [facility] Comment:Critical value for C REAT: Results called to and read backby: HO.SCIARUD Person calling: DYRYANNEI Date: 12/19/24 Time:1402 Creatinine Clr Calc Pharmacy 9.8 [facility] Comment:Provided height and weight: 167.64 cm,87.6 kg.eGFR (calculated from the MDRD study equation) and eCrCl(calculated from the Cockcroft-Gault equation) are based ondifferent parameters and may not yield comparable results.If eCrCl result is absurd, please check patient'sheight/weight. Estimated Glomerular Filt Rate 5 [facility] Comment:Chronic Kidney Disea se: Estimated GFR < 60 mL/min/1.56n3Mzvdak Kidney Disease: Estimated GFR < 15 mL/min/1.73m2 Glucose 161(H) 60 - 115 mg/dL [facility] Calcium 8.8 8.4 - 10.2 mg/dL [facility] Bilirubin, Total 0.7 0.0 - 1.0 mg/dL [facility] Aspartate Amino Transferase 27 5 - 31 U/L [facility] Alanine Aminotransferase 18 0 - 31 U/L [facility] Total Protein 7.7 6.5 - 8.0 g/dL [facility] Albumin Level 4.1 3.5 - 5.0 g/dL [facility] Alkaline Phosphatase 141(H) 39 - 117 U/L [facility] 12/19/2024 1:33 PM EDT 12/19/2024 1:36 PM EDT us Generic External Data Provider LAB BLOOD ORDERAB LES Final Result [facility] [address] [place] [phone] * MR Foot w and w/o Contrast Left (12/11/2024 12:21 PM EDT) Anatomical Region Laterality Modality Lower Extremities, Foot Left Magnetic Resonance 12/11/2024 12:2 1 PM EDT Narrative 12/11/2024 2:14 PM EDT [address] [address] Magnetic Resonance Report Signed Patient: Shereen Taylor MR#: [id number] : 1990 Acct:[id number] Age/Sex: 34 / F ADM Date: 12/10/24 Loc: HO.S3 361-[address]: Ellen Frankel MD Ordering Physician: Lele Allan MD Date of Service: 12/11/24 Procedure(s): MR foot LT wo/w con Accession Number(s): [id number] cc: Lele Allan MD; Genevieve Gtz MD Reason for Exam: ?Left 5th metatarsal osteomyelitis EXAMINATION: MR FOOT WITHOUT AND WITH CONTRAST, LEFT CLINICAL INFORMATION: Question left fifth metatarsal osteomyelitis. COMPARISON: X-ray 12/09/2024 TECHNIQUE: MRI of the left foot was performed before and after the intravenous administration of 9 mL Gadavist on a high-field scanner. FINDINGS: There is soft tissue wound/ulceration along the lateral aspect of the of the proximal fifth metatarsal. There is increased T2 signal in the soft tissues and muscles in this region region, consistent with edema/cellulitis, myositis. There is an area of nonenhancement in the soft tissues/muscles in this region measuring 2.1 x 1.7 x 0.7 cm, which could represent an area of decreased vascularity, phlegmon, abscess not excluded. There may be component of sinus tract in this region. There is abnormal bright T2, low T1 signal and enhancement in the proximal fifth metatarsal, highly suspicious for osteomyelitis. There is patchy T2 signal in the cuboid in this region,, which could reflect reactive edema or early osteomyelitis. Postsurgical changes related to transmetatarsal amputation. There are arthritic changes in the midfoot. No additional osteomyelitis is seen. Mild distal Achilles tendinosis.. Mild edema in the subjacent calcaneus, could reflect reactive edema or osseous contusion. No talar OCD. Tibiotalar articulation is maintained. No appreciable tenosynovitis. Plantar aponeurosis is intact. MR/MR foot LT wo/w con IMPRESSION: Soft tissue wound/ulceration along the lateral aspect of the proximal fifth metatarsal. There is edema/cellulitis/myositis in this region. Area of nonenhancement measuring 2.1 x 1.7 x 0.7 cm, could reflect an area of the decreased vascularity, phlegmon, component of abscess not excluded. There could be a component of sinus tract in this region. Clinically correlate. Abnormal findings in the proximal fifth metatarsal, highly suspicious for osteomyelitis. Signal changes in the cuboid, could reflect reactive edema or early osteomyelitis. Mild distal Achilles tendinosis. Reactive edema or contusion in the underlying bone. Electronically signed by: Babak Cloud MD 12/11/2024 02:11 PM EDT Dictated By: Babak Cloud MD Signed By: <Electronically signed by Babak Cloud MD in OV> 12/11/24 1411 DD/ 1221 TD/TT: 12/11/24 1310 Aerospace Mechanic: CRISTI Procedure Note Donotuseinterpreter, Image - 12/11/2024 [place] [address] Magnetic Resonance Report Signed Patient: Danna Taylor#: [id number] : 1990Acct:[id number] Age/Sex: 34 / FADM Date: 12/10/24 Loc: .S3 361-[address]: Ellen Frankel MD Ordering Physician: Lele Allan MD Date of Service: 12/11/24 Procedure(s): MR foot LT wo/w con Accession Number(s): [id number] cc: Lele Allan MD; Genevieve Gtz MD Reason for Exam: ?Left 5th metatarsal osteomyelitis EXAMINATION: MR FOOT WITHOUT AND WITH CONTRAST, LEFT CLINICAL INFORMATION: Question left fifth metatarsal osteomyelitis. COMPARISON: X-ray 12/09/2024 TECHNIQUE: MRI of the left foot was performed before and after the intravenous administration of 9 mL Gadavist on a high-field scanner. FINDINGS: There is soft tissue wound/ulceration along the lateral aspect of the of the proximal fifth metatarsal. There is increased T2 signal in the soft tissues and muscles in this region region, consistent with edema/cellulitis, myositis. There is an area of nonenhancement in the soft tissues/muscles in this region measuring 2.1 x 1.7 x 0.7 cm, which could represent an area of decreased vascularity, phlegmon, abscess not excluded. There may be component of sinus tract in this region. There is abnormal bright T2, low T1 signal and enhancement in the proximal fifth metatarsal, highly suspicious for osteomyelitis. There is patchy T2 signal in the cuboid in this region,, which could reflect reactive edema or early osteomyelitis. Postsurgical changes related to transmetatarsal amputation. There are arthritic changes in the midfoot. No additional osteomyelitis is seen. Mild distal Achilles tendinosis.. Mild edema in the subjacent calcaneus, could reflect reactive edema or osseous contusion. No talar OCD. Tibiotalar articulation is maintained. No appreciable tenosynovitis. Plantar aponeurosis is intact. MR/MR foot LT wo/w con IMPRESSION: Soft tissue wound/ulceration along the lateral aspect of the proximal fifth metatarsal. There is edema/cellulitis/myositis in this region. Area of nonenhancement measuring 2.1 x 1.7 x 0.7 cm, could reflect an area of the decreased vascularity, phlegmon, component of abscess not excluded. There could be a component of sinus tract in this region. Clinically correlate. Abnormal findings in the proximal fifth metatarsal, highly suspicious for osteomyelitis. Signal changes in the cuboid, could reflect reactive edema or early osteomyelitis. Mild distal Achilles tendinosis. Reactive edema or contusion in the underlying bone. Electronically signed by: Babak Cloud MD 12/11/2024 02:11 PM EDT Dictated By: Babak Cloud MD Signed By: <Electronically signed by Babak Cloud MD in OV> 12/11/24 1411 DD/ 1221 TD/TT: 12/11/24 1310 Aerospace Mechanic: CRISTI [facility] External Provider IMG MRI PROCEDURES Final Result * XR Foot 1-2 Views Left (12/09/2024 8:38 PM EDT) Anatomical Region Laterality Modality Lower Extremities, Foot Left Radiogra phic Imaging 12/09/2024 8:38 PM EDT Narrative 12/09/2024 8:42 PM EDT [address] [address] XRay Report Signed Patient: Shereen Taylor MR#: [id number] : 1990 Acct:[id number] Age/Sex: 34 / F ADM Date: 12/09/24 Loc: HO.ED Attending Dr: Ordering Physician: Generic ED Physician Date of Service: 12/09/24 Procedure(s): XR foot LT 2V Accession Number(s): [id number] cc: Generic ED Physician; Genevieve Gtz MD Reason for Exam: wound CLINICAL HISTORY: wound 2 view left foot Comparison: CR - XR FOOT LT MIN 3V - 07/21/24 16:06 EDT CR/SR - XR FOOT LT MIN 3V - 07/11/24 15:35 EDT Findings: Changes related to transmetatarsal amputation. Erosive changes to the 5th metatarsal base laterally is seen. Diffuse sclerotic changes of the 2nd through 4th metatarsals and distal tarsals. No significant loss of joint space, osteophytes, or erosions. No ankle effusion. No radiopaque foreign body. IMPRESSION: 1. New erosive changes of the 5th metatarsal base laterally, concerning for osteomyelitis. 2. Other chronic findings as detailed above. This document has been electronically signed by: Mariann Barnard MD on 12/09/2024 20:38:58 Dictated By: Marinan Barnard MD Signed By: <Electronically signed by Mariann Barnard MD in OV> 12/09/242039 DD/ 37 TD/TT: 12/09/242037 Aerospace Mechanic: Procedure Note Donotuseinterpreter, Image - 12/09/[address] [address] XRay Report Signed Patient: Christian TaylorR#: [id number] : 1990Acct:[id number] Age/Sex: 34 / FADM Date: 12/09/24 Loc: HO.ED Attending Dr: Ordering Physician: Generic ED Physician Date of Service: 12/09/24 Procedure(s): XR foot LT 2V Accession Number(s): [id number] cc: Generic ED Physician; Genevieve Gtz MD Reason for Exam: wound CLINICAL HISTORY: wound 2 view left foot Comparison: CR - XR FOOT LT MIN 3V - 07/21/24 16:06 EDT CR/SR - XR FOOT LT MIN 3V - 07/11/24 15:35 EDT Findings: Changes related to transmetatarsal amputation. Erosive changes to the 5th metatarsal base laterally is seen. Diffuse sclerotic changes of the 2nd through 4th metatarsals and distal tarsals. No significant loss of joint space, osteophytes, or erosions. No ankle effusion. No radiopaque foreign body. IMPRESSION: 1. New erosive changes of the 5th metatarsal base laterally, concerning for osteomyelitis. 2. Other chronic findings as detailed above. This document has been electronically signed by: Mariann Barnard MD on 12/09/2024 20:38:58 Dictated By: Mariann Barnard MD Signed By: <Electronically signed by Mariann Barnrad MD in OV> 12/09/242039 DD/ 37 TD/TT: 12/09/242037 Aerospace Mechanic: [facility] External Provider IMG XR PROCEDURES Final Result * (ABNORMAL) High Sensitivity Troponin I (12/09/2024 7:08 PM EDT) TROPONIN I HIGH SENSITIVITY 63.4(HH) <3.5 - 17.0 ng/L [facility] Comment:Critical value for t est(s): TROP Results called to and readback by: SHWETA Person calling: SHANELL Date:12/09/24Time: 1939[facility] [place] high sensitivity Troponin-I results should beused in conjunction with other diagnostic information suchas ECG, clinical observations and information, and patientsymptoms to aid in the diagnosis of [place]. 12/09/2024 7:08 PM EDT 12/09/2024 7:13 PM EDT Generic External Data Provider LAB BLOOD ORDERAB LES Final Result [facility] [address] [place] [phone] * (ABNORMAL) Prothrombin Time-INR (12/09/2024 7:08 PM EDT) Prothrombin Time 12.7(H) 10.9 - 12.4 SEC [facility] INTERNATIONAL NORM RATIO 1.1 0.9 - 1.1 [facility] Comment:INTERNATIONAL NORMAL IZED RATIO (INR) REFERENCE RANGES Reference RangeFor patients not on anticoagulant therapy: 0.9 - 1.1INR ranges for oral anticoagulanttherapy:For prevention and treatment of venous thrombosis and pulmonary embolism: 2.0 - 3.0For acute myocardial infarction with aspirin therapy: 2.0 - 3.0For acute myocardial infarction without aspirin therapy: 3.0 - 4.0For patients with mechanical prosthetic heart valves: 2.5 - 3.5 12/09/2024 7:08 PM EDT 12/09/2024 7:13 PM EDT us Generic External Data Provider LAB BLOOD ORDERAB LES Final Result Performing Organization Address [facility] de Phone Number [facility] [address] [place] [phone] * Magnesium (12/09/2024 7:08 PM EDT) Magnesium 2.4 1.6 - 2.6 mg/dL [facility] 12/09/2024 7:08 PM EDT 12/09/2024 7:13 PM EDT us Generic External Data Provider LAB BLOOD ORDERAB LES Final Result Performing Organization Address [facility] Co de Phone Number [facility] [address] [place] [phone] * Hepatic Function Panel (12/09/2024 7:08 PM EDT) Bilirubin, Direct 0.3 0.0 - 0.5 mg/dL [facility] 12/09/2024 7:08 PM EDT 12/09/2024 7:13 PM EDT us Generic External Data Provider LAB BLOOD ORDERAB LES Final Result [facility] [address] [place] [phone] [phone] * Drug Toxicology Monitoring Base Panel, w/Confirmation, Oral Fluid (11/19/2024 12:00 AM EDT) Drug Tox Panel with Confirmation SEE NOTE [facility] Comment: Test Ordered Result Cutoff DRUG TOX MONITORING BASE PANEL,W/CONF,ORAL FLUID Amphetamines Negative 10 ng/mL Benzodiazepines Negative 0.50 ng/mL Cocaine Negative 5.0 ng/mL Marijuana Negative 2.5 ng/mL Methadone Negative 5.0 ng/mL Buprenorphine Negative 0.10 ng/mL Fentanyl Negative 0.10 ng/mL Heroin Metabolite Negative 1.0 ng/mL Opiates Positive 2.5 ng/mL Codeine Negative 2.5 ng/mL Dihydrocodeine Negative 2.5 ng/mL Hydrocodone Negative 2.5 ng/mL Hydromorphone Negative 2.5 ng/mL Morphine Negative 2.5 ng/mL Norhydrocodone Negative 2.5 ng/mL Noroxycodone Negative 2.5 ng/mL Oxycodone 4.5 H 2.5 ng/mL Oxymorphone Negative 2.5 ng/mLTapentadol Negative 5.0 ng/mLTramadol Negative 5.0 ng/mLFor additional information, please refer tohttp://education.ItsGoinOn/faq/MJT339 (This linkis being provided for informational/ educational purposesonly.) This drug testing is for medical treatment only.Analysis was performed as non-forensic testing and theseresults should be used only by healthcare providers torender diagnosis or treatment, or to monitor progress ofmedical conditions. For assistance with interpreting thesedrug results, please contact a [employer] ToxicologySpecialist: [phone] TOX ( ), M-F, 8am-6pmEST. These tests were developed and their analyticalperformance characteristics have beendetermined by [employer] They have not been clearedor a pproved by the FDA. These assays have been validatedpursuant to the CLIA regulations and are used for clinicalpurposes. PERFO RMING SITE:[employer]/[address] [address] Adjunct Physical Education Instructor: KORIN TRUONG MD,PHD, CLIA: [id number] 11/19/2024 11/19/2024 us Genevieve Casillas MD LAB BODY FLUIDS A ND STOOLS ORDERABLES Final Result Performing Organization Address [facility] Co de Phone Number [facility] [address] [place] [phone] * Hepatitis C Antibody with Reflex to HCV, RNA, Quantitative, Real-Time PCR (03/07/2024 9:45 AM EST) Hepatitis C Antibody Nonreactive Nonreactive [facility] Comment:Antibodies to HCV no t detected; does not exclude early acuteHCV infection. Blood Venous blood specimen / Unknown 03/07/2024 9:45 AM EST 03/07/2024 11:34 AM EST us Genevieve Casillas MD LAB BLOOD ORDERAB LES Final Result Performing Organization Address [facility]/ZIP Co de Phone Number [facility] [address] [place] [address] [place] [phone] * HIV-1/2 Antigen and Antibodies, Fourth Generation, with Reflexes (03/07/2024 9:45 AM EST) HIV AB/AG Nonreactive Nonreactive [facility] Comment:HIV-1 p24 Ag and/or HIV-1/HIV-2 Ab not detected.A test result that is nonreactive does not exclude thepossibility of exposure to or infection with HIV-1 and/orHIV-2. Nonreactive results in this assay for individualswith prior exposure to HIV-1 and/or HIV-2 may be due toantigen and antibody levels that are below the limit ofdetection of this assay.The Peel HIV Ag/Ab Combo assay result andsupplemental assay results should be interpreted inconjunction with the patient's clinical presentation,history and other laboratory results. If the results areinconsistent with clinical evidence, additional testing issuggested to confirm the result. Blood Venous blood specimen / Unknown 03/07/2024 9:45 AM EST 03/07/2024 11:34 AM EST us Genevieve Casillas MD LAB BLOOD ORDERAB LES Final Result [facility] [address] [place] [phone] * Hemoglobin A1c (03/07/2024 9:45 AM EST) Hemoglobin A1c 5.7 <6.0 % [facility] Comment:Hemoglobin A1C Refer ence Range Adults: 4.8 - 6.0 % Non diabetic: < 6.0 % Goal: < 7.0 %Additional Action Suggested: > 8.0 %Note: Hemoglobin A1c results are invalid for patients with abnormal amounts of HbF. Blood transfusions may impact the HbA1c concentration in the patient sample. Estimated Average Glucose 117 mg/dL [facility] Comment:eAG = Estimated ave rage glucose which is %A1C expressed asaverage glucose, using the formula of the I1P-NukhpbxQwsczag Glucose study (ADAG), Diabetes Care, Vol.31,#8,Sep. 2007 Blood Venous blood specimen / Unknown 03/07/2024 9:45 AM EST 03/07/2024 11:34 AM EST Genevieve Casillas MD LAB BLOOD ORDERAB LES Final Result Performing Organization Address [facility] Co de Phone Number [facility] [address] [place] [phone] * (ABNORMAL) Lipid Panel, Standard (03/07/2024 9:45 AM EST) Triglycerides 36 <150 mg/dL [facility] Comment:Desirable Triglyceri de: less than 150 mg/dLBorderline High Triglyceride 150-199 mg/dLHigh Triglyceride: 200-499 mg/dLVery High Triglyceride: greater than or equal to 5OO mg/dL Cholesterol 107 <200 mg/dL [facility] Comment:Desirable Cholestero l: less than 200 mg/dLBorderline High Cholesterol: 200-239 mg/dLHigh Cholesterol: greater than 239 mg/dL LDL Cholesterol Calculated 65 <100 mg/dL [facility] Comment:Desirable LDL: less than 100 mg/dLNear Optimal/Above Optimal LDL: 110- 129 mg/dLBorderline High LDL: 130-159 mg/dLHigh LDL: 160-189 mg/dLVery High LDL: greater than or equal to 190 mg/dL HDL Cholesterol 35(L) >40 mg/dL [facility] Comment:Desirable HDL: great er than 40 mg/dL Note: This HDL assay may give artificially low results in patients with liver disease. Blood Venous blood specimen / Unknown 03/07/2024 9:45 AM EST 03/07/2024 11:34 AM EST Genevieve Casillas MD LAB BLOOD ORDERAB LES Final Result Performing Organization Address [facility]/ZIP Co de Phone Number [facility] [address] [place] [address] [phone] from Last 3 Months or Most Recently Relevant to Health Maintenance Insurance [employer] SOLOMON [id number] Care Teams Chemical Research Technician Relationship Specialty Start Date End Date Genevieve Gtz MD [address] [place] [phone] PCP - General Internal Medicine 10/12/22
--- OUTSIDE RECORDS SUMMARY | 2024-12-19 15:42 | XMS_ITS | Encounter Summary ---
Author Organization [employer] Address [address] [facility] 7t [place] [address] Care Team Providers Care Diesel Retrofit Installer Name Role Phone Genevieve Gtz MD Primary Care Pro vider Reason for Visit * Reason Onset Date Comments Call Back Request 06/15/2023 Encounter Details Date Type Department Care Team ([facility] Contact Info) Description 06/15/2023 Telephone [facility] MEDICINE [address] [place], [place] [phone] Genevieve Gtz MD [address] [place], [place] [phone] Call Back Request Social History Tobacco Use [...] pt requesting a call back in regards DIRECTOR OF LAND ACQUISITION medication. documented in this encounter Plan of Treatment Upcoming Encounters Date Type Department Care Team ([facility] st Contact Info) Description 12/31/2024 10:00 AM EST Telemedicine [facility] [address] [place] [address] Paola Thurston RN 505 [place] [address] 02/11/2025 2:45 PM EST Clinical Support [facility] [address] [place] [address] Paola Thurston RN [address] [place] [address] documented as of this encounter Goals Goal [...] documented as of this encounter Care Teams Diesel Retrofit Installer Relationship Specialty Start Date End Date Genevieve Gtz MD [address] [place] [address] [phone] PCP - General Internal Medicine 10/12/22 documented as of this encounter
--- OUTSIDE RECORDS SUMMARY | 2024-12-19 15:42 | XMS_ITS | Encounter Summary ---
Author Organization [employer] Address [address] [facility] 7t [place] [address] Care Team Providers Care Radio Electrician Name Role Phone Genevieve Gtz MD Primary Care Pro vider Reason for Visit * Reason Onset Date Comments Med Refill 01/08/2023 Encounter Details Date Type Department Care Team ([facility] Contact Info) Description 01/08/2023 Telephone [facility] MEDICINE [address] [place], [place] [phone] Genevieve Gtz MD [address] [place], [place] [phone] Med Refill Social History Tobacco Use Types [...] Info) Description 12/31/2024 10:00 AM EST Telemedicine [facility] [address] [place] [address] Paola Thurston RN 505 [place] [address] 02/11/2025 2:45 PM EST Clinical Support [facility] [address] [place] [address] Paola Thurston RN [address] [place] [address] documented as of this encounter Visit Diagnoses Not on filedocumented in this encounter Additional Health Concerns Assessment Noted Time PHQ-9 Depression Total Score: 0 10/13/19 2:37 PM EDT documented as of this encounter Care Teams Radio Electrician Relationship Specialty Start Date End Date Genevieve Gtz MD [address] [place] [phone] PCP - General Internal Medicine 10/12/22 documented as of this encounter
--- OUTSIDE RECORDS SUMMARY | 2024-12-19 15:42 | XMS_ITS | Encounter Summary ---
Author Organization [employer] Address [address] [facility] 7t [place] [address] Care Team Providers Care Superintendent Compressor Stations Name Role Phone Genevieve Gtz MD Primary Care Pro vider Reason for Visit * Reason Onset Date Comments Med Refill 10/23/2024 Encounter Details Date Type Department Care Team ([facility] Contact Info) Description 10/23/2024 Telephone [facility] MEDICINE [address] [place] [address] Genevieve Gtz MD 230 [place], [place] [phone] Med Refill Social History Tobacco Use Types [...] from pt retuning call Contact pt at [phone] * Telephone Encounter - Paola Thurston RN - 10/23/2024 10:24 AM EDT Pt requesting refill of Oxycodone 5mg. No show to MAMMOGRAPHER appt 08/06/24. Multiple TC to pt to r/s, no answer, no c/b. Also no showed to appt with you 09/26/24. Please advise. * Telephone Encounter - Colten Mullen - 10/23/2024 10:07 AM EDT TC from pt requesting medication refill. Medications needing refill : oxyCODONE (Roxicodone) 5 MG immediate release tablet To be sent to: [facility]/pharmacy #[id number] documented in this encounter Plan of Treatment Upcoming Encounters Date Type Department Care Team (Late st Contact Info) Description 12/31/2024 10:00 AM EST Telemedicine [facility] [address] [place] [address] Paola Thurston RN 505 [place] [address] 02/11/2025 2:45 PM EST Clinical Support [facility] [address] [place] [address] Paola Thurston RN 505 [place] [address] documented as of this encounter Goals Goal [...] documented as of this encounter Care Teams Superintendent Compressor Stations Relationship Specialty Start Date End Date Genevieve Gtz MD [address] [place] [address] [phone] PCP - General Internal Medicine 10/12/22 documented as of this encounter
--- OUTSIDE RECORDS SUMMARY | 2024-12-19 15:42 | XMS_ITS | Encounter Summary ---
Author Organization [employer] Address [address] [facility] 7t [place] [address] Care Team Providers Care Team Cdl Driver Name Role Phone Carolina Hsu JUNIOR COPYWRITER Primary Care Provider Genevieve Wilson MD Primary Care Pro vider Reason for Visit * Reason Onset Date Comments Appointment Request 03/30/2022 Encounter Details Date Type Department Care Team ([facility] st Contact Info) Description 03/30/2022 Telephone [facility] MEDICINE [address] [place] [address] [phone] Carolina Hsu FNP Appointment Request Social History [...] EST TC to pt, NCNS for todays INSTRUCTIONAL SERVICES LIBRARIAN Renewal appt. Pt stated she is currently admitted to [facility], she statedshe has fluid in her lungs and she's a mess. Wished patient well and told her I would forward this information to her PCP. Requested she call back to reschedule INSTRUCTIONAL SERVICES LIBRARIAN appt when she's feeling better. * Telephone Encounter - Stephen Davison - 03/30/2022 10:41 AM EST documented in this encounter Plan of Treatment Upcoming Encounters Date Type Department Care Team (Late st Contact Info) Description 12/31/2024 10:00 AM EST Telemedicine [facility] [address] [place] [address] Paola Thurston RN 505 [place] [address] 02/11/2025 2:45 PM EST Clinical Support [facility] [address] [place] [address] Paola Thurston RN [address] [place] [address] documented as of this encounter Visit Diagnoses Not on filedocumented in this encounter Care Teams Team Cdl Driver Relationship Specialty Start Date End Date Carolina Hsu FNP PCP - General Family Medicine 01/16/22 10/11/22 Genevieve Gtz MD [address] [place] [phone] PCP - General Internal Medicine 10/12/22 documented as of this encounter
--- OUTSIDE RECORDS SUMMARY | 2024-12-19 15:42 | XMS_ITS | Encounter Summary ---
Author Organization [employer] Address [address] [place] [address] 7t [place] [address] Care Team Providers Care Carpet Layer Name Role Phone Genevieve Gtz MD Primary Care Pro vider Reason for Visit * Reason Onset Date Comments Med Refill 11/27/2022 Encounter Details Date Type Department Care Team ([facility] st Contact Info) Description 11/27/2022 Telephone [facility] MEDICINE [address] [place], [place] [phone] Genevieve Gtz MD [address] [place], [place] [phone] Med Refill Social History Tobacco Use Types [...] medication oxycodone 5 mg. Please send to [facility]/pharmacy #[id number] - [place] - [address] Cool documented in this encounter Plan of Treatment Upcoming Encounters Date Type Department Care Team (Late st Contact Info) Description 12/31/2024 10:00 AM EST Telemedicine [facility] [address] [place] [address] Paola Thurston RN [address] [place] [address] 02/11/2025 2:45 PM EST Clinical Support [facility] [address] [place] [address] Paola Thurston RN [address] [place] [address] documented as of this encounter Visit Diagnoses Not on filedocumented in this encounter Additional Health Concerns Assessment Noted Time PHQ-9 Depression Total Score: 0 10/13/19 2:37 PM EDT documented as of this encounter Care Teams Carpet Layer Relationship Specialty Start Date End Date Genevieve Gtz MD [address] [place] [phone] PCP - General Internal Medicine 10/12/22 documented as of this encounter
--- OUTSIDE RECORDS SUMMARY | 2024-12-19 15:42 | XMS_ITS | Encounter Summary ---
Author Organization [facility] Address [address] [place] [phone] Phone Care Team Providers Care Compliance Intern Name Role Phone EmilyAlyssa hutchinson Primary Care Provider Unava ilable Encounter Details Date Type Department Care Team (Late st Contact Info) Description 11/22/2024 TCM in Dialysis Clinic [facility] [address] [phone] Placido Carver MD [address] [phone] Social History Tobacco Use Types Packs/Day Years Used Date Smoking Tobacco: Never Assessed Comments Unknown Sex and Gender Information Value Date Recorded Sex Assigned at Not on file Legal Sex Female 4:53 PM EST Gender Identity Not on file Sexual Orientation Not on file documented as of this encounter Progress Notes * Placido Carver MD - 11/22/2024 12:00 AM EDT Patient: Shereen Taylor : 1990 Note Type: Dialysis TCM Service Date: 11/22/2024 The patient was seen for a obnj-as-twup visit as part of Transitional Care Management services. Attending Electronics Assembler And Tester: PLACIDO CARVER MD Dialysis Location: [facility] Schedule: Shift: 2 INTERACTIVE CONTACT Contact with the patient or caregiver was made or attempted within 2 business days of discharge - details in the medical record. HOSPITALIZATION SUMMARY Patient transitioned from: Hospital Patient transitioned to: Home Admit Date: 10/29/2024 Discharge Date: 11/11/2024 Discharged info reviewed: Followed-up on or reviewed need for pending tests/treatments as noted PHYSICAL EXAM Exam performed. Vital Signs Reviewed. CV - Blood pressure noted. No edema. EXT - No ulcers. CARE COORDINATION Post-discharge follow-up appointments reviewed with the patient. VISIT DIAGNOSES CPT Code 86488 - High complexity, seen 8-14 days post discharge or moderate complexity, seen [id number] days of discharge. N18.6 End stage renal disease Signed by: PLACIDO CARVER MD on 11/22/2024 at 01:18:26 PM Transcribed by: PLACIDO CARVER MD on 11/22/2024 at 01:18:26 PM documented in this encounter Plan of Treatment Not on file documented as of this encounter Visit Diagnoses Not on filedocumented in this encounter Care Teams Compliance Intern Relationship Specialty Start Date End Date Alyssa Manzano DO [address] [place] [address] PCP - General Family Medicine 03/02/21 documented as of this encounter
--- OUTSIDE RECORDS SUMMARY | 2024-12-19 15:42 | XMS_ITS | Encounter Summary ---
Author Organization [employer] Address [address] [place] [address] 7t [place] [address] Care Team Providers Care Receiver Setter Name Role Phone Carolina Hsu TEXTILES AND CLOTHING TEACHER Primary Care Provider Genevieve Wilson MD Primary Care Pro vider Encounter Details Date Type Department Care Team (Late Contact Info) Description 09/11/2022 Abstract [facility] MEDICINE [address] [place] [address] Carolina Hsu FNP Social History Tobacco Use [...] Department Care Team (Late Contact Info) Description 12/31/2024 10:00 AM EST Telemedicine [facility] 505 [place] [address] Paola Thurston RN [address] [place] [address] 02/11/2025 2:45 PM EST Clinical Support [facility] [address] [place] [address] Paola Thurston RN 505 [place] [address] documented as of this encounter Visit Diagnoses Not on filedocumented in this encounter Care Teams Receiver Setter Relationship Specialty Start Date End Date Carolina Hsu FNP PCP - General Family Medicine 01/16/22 10/11/22 Genevieve Gtz MD [address] [place] [phone] PCP - General Internal Medicine 10/12/22 documented as of this encounter
--- OUTSIDE RECORDS SUMMARY | 2024-12-19 15:42 | XMS_ITS | Encounter Summary ---
Author Organization [employer] Address [address] [place] [address] 7t [place] [address] Care Team Providers Care Business Transformation Analyst Name Role Phone Carolina Hsu STAGE HAND Primary Care Provider Genevieve Wilson MD Primary Care Pro vider Encounter Details Date Type Department Care Team (Late Contact Info) Description 09/11/2022 Abstract [facility] MEDICINE [address] [place] [address] Carolina Hsu FNP Social History Tobacco Use [...] Info) Description 12/31/2024 10:00 AM EST Telemedicine [facility] [address] [place] [address] Paola Thurston RN 505 [place] [address] 02/11/2025 2:45 PM EST Clinical Support [facility] [address] [place] [address] Paola Thurston RN [address] [place] [address] documented as of this encounter Visit Diagnoses Not on filedocumented in this encounter Care Teams Business Transformation Analyst Relationship Specialty Start Date End Date Carolina Hsu FNP PCP - General Family Medicine 01/16/22 10/11/22 Genevieve Gtz MD [address] [place] [address] PCP - General Internal Medicine 10/12/22 documented as of this encounter
--- OUTSIDE RECORDS SUMMARY | 2024-12-19 15:42 | XMS_ITS | Encounter Summary ---
Author Organization [employer] Address [address] [employer] 7t [place] [address] Care Team Providers Care Elementary Classroom Teacher Name Role Phone Genevieve Gtz MD Primary Care Pro vider Reason for Visit * Reason Onset Date Comments FYI 08/08/2024 Encounter Details Date Type Department Care Team ([facility] Contact Info) Description 08/08/2024 Telephone [facility] MEDICINE [address] [place], [place] [phone] Genevieve Gtz MD 230 [place], [place] [phone] FYI Social History Tobacco Use Types Packs/Day [...] 11:13 AM EDT [facility] that [facility] for [facility] for wound care.Patient declined services, stating she manages her wound care independently and obtains her own supplies. Helen just wanted FYI to PCP documented in this encounter Plan of Treatment Upcoming Encounters Date Type Department Care Team (Late st Contact Info) Description 12/31/2024 10:00 AM EST Telemedicine [facility] MED & PEDS [address] [place] [address] Paola Thurston RN 505 [place] [address] 02/11/2025 2:45 PM EST Clinical Support [facility]ED[facility] [address] [place] [address] Paola Thurston RN 505 [place] [address] documented as of this encounter Goals Goal [...] documented as of this encounter Care Teams Elementary Classroom Teacher Relationship Specialty Start Date End Date Genevieve Gtz MD [address] [place] [phone] PCP - General Internal Medicine 10/12/22 documented as of this encounter
--- OUTSIDE RECORDS SUMMARY | 2024-12-19 15:42 | XMS_ITS | Encounter Summary ---
Author Organization [employer] Address [address] [facility] 7t [place] [address] Care Team Providers Care Color Checker Roving Or Yarn Name Role Phone Genevieve Gtz MD Primary Care Pro vider Reason for Visit * Reason Onset Date Comments Med Refill 06/21/2023 Encounter Details Date Type Department Care Team ([facility] Contact Info) Description 06/21/2023 Telephone [facility] MEDICINE [address] [place], [place] [phone] Genevivee Gtz MD 230 [place], [place] [phone] Med Refill Social History Tobacco Use Types [...] release tablet To be sent to: [facility]/pharmacy #[id number] - [place], [place] - [address] [place] [address] documented in this encounter Plan of Treatment Upcoming Encounters Date Type Department Care Team (Late st Contact Info) Description 12/31/2024 10:00 AM EST Telemedicine [facility] MED & PEDS 505 [place] [address] Paola Thurston RN 505 [place] [address] 02/11/2025 2:45 PM EST Clinical Support [facility] MED & PEDS [address] [place] [address] Paola Thurston RN 505 [place] [address] documented as of this encounter Goals Goal [...] Noted Time PHQ-9 Depression Total Score: 0 08/17/20 23 2:37 PM EDT documented as of this encounter Care Teams Color Checker Roving Or Yarn Relationship Specialty Start Date End Date Genevieve Gtz MD [address] [place] [phone] PCP - General Internal Medicine 10/12/22 documented as of this encounter
--- OUTSIDE RECORDS SUMMARY | 2024-12-19 15:42 | XMS_ITS | Encounter Summary ---
Author Organization [employer] Address 75 [facility] 7t [place] [address] Care Team Providers Care Shale Miner Name Role Phone Genevieve Gtz MD Primary Care Pro vider Reason for Visit * Reason Onset Date Comments Med Refill 06/20/2024 Encounter Details Date Type Department Care Team ([facility] Contact Info) Description 06/20/2024 Telephone [facility] MEDICINE 230 [place] [address] Genevieve Gtz MD 230 [place], [place] [phone] Med Refill Social History Tobacco Use Types [...] release tablet To be sent to: [facility]/pharmacy #[id number] [place] [address] documented in this encounter Plan of Treatment Upcoming Encounters Date Type Department Care Team (Late st Contact Info) Description 12/31/2024 10:00 AM EST Telemedicine [facility] MED & PEDS 505 [place] [address] Paola Thurston RN 505 [place] [address] 02/11/2025 2:45 PM EST Clinical Support [facility] MED & PEDS 505 [place] [address] Paola Thurston RN 505 [place] [address] documented as of this encounter Goals Goal [...] documented as of this encounter Care Teams Shale Miner Relationship Specialty Start Date End Date Genevieve Gtz MD [address] [place] [phone] PCP - General Internal Medicine 10/12/22 documented as of this encounter
--- OUTSIDE RECORDS SUMMARY | 2024-12-19 15:42 | XMS_ITS | Encounter Summary ---
Author Organization [employer] Address 75 [facility] 7t [place] [address] Care Team Providers Care Sap Consultant Name Role Phone Genevieve Gtz MD Primary Care Pro vider Reason for Visit * Reason Comments Med Change Request Encounter Details Date Type Department Care Team ([facility] st Contact Info) Description 03/15/2023 Refill [facility] MED & PEDS [address] [place], [place] [phone] Genevieve Gtz MD 230 [place], [place] [phone] Benign essential hypertension Social History Tobacco Use [...] Description 12/31/2024 10:00 AM EST Telemedicine [facility] MED & PEDS 505 [place] [address] Paola Thurston RN 505 [place] [address] 02/11/2025 2:45 PM EST Clinical Support [facility] MED & PEDS 505 [place] [address] Paola Thurston RN [address] [place] [address] documented as of this encounter Visit Diagnoses Diagnosis Benign essential hypertension Essential hypertension, benign documented in this encounter Additional Health Concerns Assessment Noted Time PHQ-9 Depression Total Score: 0 10/13/19 23 2:37 PM EDT documented as of this encounter Care Teams Sap Consultant Relationship Specialty Start Date End Date Genevieve Gtz MD [address] [place] [address] [phone] PCP - General Internal Medicine 10/12/22 documented as of this encounter
--- OUTSIDE RECORDS SUMMARY | 2024-12-19 15:42 | XMS_ITS | Encounter Summary ---
Author Organization [employer] Address 75 [facility] 7t [place] [address] Care Team Providers Care Printing Press Machine Operator Name Role Phone Genevieve Gtz MD Primary Care Pro vider Reason for Visit * Reason Onset Date Comments Hospital Follow-up 03/04/2024 Encounter Details Date Type Department Care Team ([facility] Contact Info) Description 03/04/2024 Telephone [facility] MEDICINE 230 [place], [place] [phone] Genevieve Gtz MD 230 [place] [address] Hospital Follow-up Social History Tobacco Use Types [...] from pt requesting a HDF appt. Hospital: [facility] Date of admission: 02/21/2024 Discharge date: 02/01/2025 Diagnosed: Oxygen , Infection Dialysis tube *Send message to [facility] Clinical Care Coordinators documented in this encounter Plan of Treatment Upcoming Encounters Date Type Department Care Team ([facility] st Contact Info) Description 12/31/2024 10:00 AM EST Telemedicine [facility] MED & PEDS 505 [place] [address] Paola Thurston RN 505 [place] [address] 02/11/2025 2:45 PM EST Clinical Support [facility] MED & PEDS 505 [place] [address] Paola Thurston RN [address] [place] [address] documented as of this encounter Goals Goal [...] documented as of this encounter Care Teams Printing Press Machine Operator Relationship Specialty Start Date End Date Genevieve Gtz MD [address] [place] [phone] PCP - General Internal Medicine 10/12/22 documented as of this encounter
--- OUTSIDE RECORDS SUMMARY | 2024-12-19 15:42 | XMS_ITS | Encounter Summary ---
Author Organization [employer] Address [address] [facility] 7t [place] [address] Care Team Providers Care Housekeeping Attendant Name Role Phone Genevieve Gtz MD Primary Care Pro vider Reason for Visit * Reason Onset Date Comments Med Refill 12/04/2024 Encounter Details Date Type Department Care Team ([facility] Contact Info) Description 12/04/2024 Telephone [facility] MEDICINE 230 [place] [address] Genevieve Gtz MD 230 [place], [place] [phone] Med Refill Social History Tobacco Use Types [...] * Telephone Encounter - Francie Smith - 12/04/2024 8:04 AM EDT TC from pt requesting medication refill. Medications needing refill : - oxyCODONE (Roxicodone) 5 MG immediate release tablet To be sent to: - [facility]/pharmacy #[id number] documented in this encounter Plan of Treatment Upcoming Encounters Date Type Department Care Team ([facility] st Contact Info) Description 12/31/2024 10:00 AM EST Telemedicine [facility] MED & PEDS 505 [place] [address] Paola Thurston RN 505 [place] [address] 02/11/2025 2:45 PM EST Clinical Support [facility] MED & PEDS 505 [place] [address] Paola Thurston RN 505 [place] [address] documented as of this encounter Goals Goal [...] documented as of this encounter Care Teams Housekeeping Attendant Relationship Specialty Start Date End Date Genevieve Gtz MD [address] [place] [phone] PCP - General Internal Medicine 10/12/22 documented as of this encounter
--- OUTSIDE RECORDS SUMMARY | 2024-12-19 15:42 | XMS_ITS | Encounter Summary ---
Author Organization [employer] Address [address] [place] [address] 7t [place] [address] Care Team Providers Care Management Professor Name Role Phone Carolina Hsu BASKET HAND BRAIDER Primary Care Provider Genevieve Wilson MD Primary Care Pro vider Encounter Details Date Type Department Care Team (Late Contact Info) Description 09/11/2022 Abstract [facility] MEDICINE 230 [place] [address] Carolina Hsu FNP Social History Tobacco Use [...] Info) Description 12/31/2024 10:00 AM EST Telemedicine [facility] MED & PEDS 505 [place] [address] Paola Thurston RN 505 [place] [address] 02/11/2025 2:45 PM EST Clinical Support [facility] MED & PEDS 505 [place] [address] Paola Thurston RN 505 [place] [address] documented as of this encounter Visit Diagnoses Not on filedocumented in this encounter Care Teams Management Professor Relationship Specialty Start Date End Date Carolina Hsu FNP PCP - General Family Medicine 01/16/22 10/11/22 Genevieve Gtz MD [address] [place] [phone] PCP - General Internal Medicine 10/12/22 documented as of this encounter
--- OUTSIDE RECORDS SUMMARY | 2024-12-19 15:42 | XMS_ITS | Encounter Summary ---
Author Organization [employer] Address [address] [facility] 7t [place] [address] Care Team Providers Care Pleater Hand Name Role Phone Genevieve Gtz MD Primary Care Pro vider Reason for Visit * Reason Onset Date Comments Med Refill 11/21/2024 Encounter Details Date Type Department Care Team ([facility] Contact Info) Description 11/21/2024 Telephone [facility] MEDICINE 230 [place] [address] Genevieve Gtz MD 230 [place], [place] [phone] Med Refill Social History Tobacco Use Types [...] release tablet To be sent to: - [facility]/pharmacy #[id number] documented in this encounter Plan of Treatment Upcoming Encounters Date Type Department Care Team ([facility] st Contact Info) Description 12/31/2024 10:00 AM EST Telemedicine [facility] MED & PEDS 505 [place] [address] Paola Thurston RN 505 [place] [address] 02/11/2025 2:45 PM EST Clinical Support [facility] MED & PEDS [address] [place] [address] Paola Thurston RN 505 [place] [address] documented as of this encounter Goals Goal [...] documented as of this encounter Care Teams Pleater Hand Relationship Specialty Start Date End Date Genevieve Gtz MD [address] [place] [phone] PCP - General Internal Medicine 10/12/22 documented as of this encounter
--- OUTSIDE RECORDS SUMMARY | 2024-12-19 15:43 | XMS_ITS | Encounter Summary ---
Author Organization [employer] Address [address] [place] [address] 7t [place] [address] Care Team Providers Care Timber Rider Name Role Phone Carolina Hsu Primary Care Provider Genevieve Wilson MD Primary Care Pro vider Reason for Visit * Reason Onset Date Comments Med Refill 07/28/2022 Encounter Details Date Type Department Care Team ([facility] st Contact Info) Description 07/28/2022 Telephone [facility] MEDICINE [address] [place] [address] [phone] Carolina Hsu FNP Med Refill Social History [...] Info) Description 12/31/2024 10:00 AM EST Telemedicine [facility] MED & PEDS 505 [place] [address] Paola Thurston RN 505 [place] [address] 02/11/2025 2:45 PM EST Clinical Support [facility] MED & PEDS 505 [place] [address] Paola Thurston RN 505 [place] [address] documented as of this encounter Visit Diagnoses Diagnosis Acute on chronic heart failure, unspecified heart failure type (HCC)- Primary Benign essential hypertension Essential hypertension, benign documented in this encounter Care Teams Timber Rider Relationship Specialty Start Date End Date Carolina Hsu FNP PCP - General Family Medicine 01/16/22 10/11/22 Genevieve Gtz MD [address] [place] [address] [phone] PCP - General Internal Medicine 10/12/22 documented as of this encounter
--- OUTSIDE RECORDS SUMMARY | 2024-12-19 15:43 | XMS_ITS | Encounter Summary ---
Author Organization [employer] Address [address] [facility] 7t [place] [address] Care Team Providers Care Health Information Technologist Name Role Phone Genevieve Gtz MD Primary Care Pro vider Encounter Details Date Type Department Care Team ([facility] st Contact Info) Description 12/19/2024 Orders Only GENERIC EXTERNAL DATA [...] ([facility] st Contact Info) Description 12/31/2024 10:00 AM EST Telemedicine [facility] MED & PEDS 505 [place] [address] Paola Thurston RN 505 [place] [address] 02/11/2025 2:45 PM EST Clinical Support [facility] MED & PEDS 505 [place] [address] Paola Thurston RN 505 [place] [address] documented as of this encounter Goals Goal Patient Goal Type Associated Problems Recent Progress Patient-Stated? Author Blood Pressure < 140/90 Blood Pressure 129/75(2024 9:08 AM EST) No Jaime Chilel Hemoglobin A1c < 8 Result Component 5.7( 9:45 AM EST) No Jaime Chilel documented as of this encounter Procedures Procedure Name Priority Date/Time Associated Diagnosis Comments HOLD GREEN GEL Routine 12/19/2024 1:42 PM EDT CBC WITH AUTO DIFFERENTIAL Routine 12/19/2024 1:33 PM EDT APTT Routine 12/19/2024 1:33 PM EDT SED RATE BY MODIFIED WESTERGREN Routine 12/19/2024 1:33 PM EDT C-REACTIVE PROTEIN Routine 12/19/2024 1: 33 PM EDT LIPASE Routine 12/19/2024 1:33 PM EDT LACTIC ACID Routine 12/19/2024 1:33 PM EDT COMPREHENSIVE METABOLIC PANEL Routine 12/19/2024 1:33 PM EDT documented in this encounter Results * Hold Green Gel (12/19/2024 1:42 PM EDT) Hold Green Gel See Note [facility] Comment:Specimen held untest ed for 24 hours; Call to requestChemistry testing. 12/19/2024 1:42 PM EDT 12/19/2024 1:49 PM EDT Generic External Data Provider HISTORICAL/NON OR DERABLE LABS Final Result Performing Organization Address [facility] Co de Phone Number [facility] [address] [place] [address] [phone] * (ABNORMAL) Sed Rate by Modified Pacoergren (12/19/2024 1:33 PM EDT) Erythrocyte Sedimentation Rate 54(H) 0 - 20 MM/HR [facility] Comment:Patients with polycy themia and many hemoglobin abnormalitiesmay have depressed sed rates whereas patients with anemiamay have elevated sed rates. 12/19/2024 1:33 PM EDT 12/19/2024 1:36 PM EDT us Generic External Data Provider LAB BLOOD ORDERAB LES Final Result Performing Organization Address [facility]/ZIP Co de Phone Number [facility] [address] [place] [address] [phone] * Lipase (12/19/2024 1:33 PM EDT) Lipase 37 8 - 78 U/L [facility] 12/19/2024 1:33 PM EDT 12/19/2024 1:36 PM EDT Generic External Data Provider LAB BLOOD ORDERAB LES Final Result Performing Organization Address City/[facility]/ZIP Co de Phone Number [facility] [address] [place] [address] [phone] * (ABNORMAL) C-reactive Protein (12/19/2024 1:33 PM EDT) C Reactive Protein 0.84(H) < or = 0.50 mg/dL [facility] 12/19/2024 1:33 PM EDT 12/19/2024 1:36 PM EDT Generic External Data Provider LAB BLOOD ORDERAB LES Final Result Performing Organization Address [facility] Co de Phone Number [facility] [address] [place] [phone] * (ABNORMAL) Comprehensive Metabolic Panel (12/19/2024 1:33 PM EDT) Sodium 140 135 - 145 mmol/L [facility] Potassium 5.4(H) 3.3 - 5.1 mmol/L [facility] Chloride 103 96 - 108 mmol/L [facility] Carbon Dioxide 25 22 - 29 mmol/L [facility] Anion Gap 17 12 - 20 [facility] Urea Nitrogen (BUN) 60(H) 9 - 16 mg/dL [facility] Creatinine, Serum 8.83(HH) 0.5 - 1.4 mg/dL [facility] Comment:Critical value for C REAT: Results called to and read backby: RAJAN Person calling: DYURTEI Date: 12/19/24 Time:1402 Creatinine Clr Calc Pharmacy 9.8 [facility] Comment:Provided height and weight: 167.64 cm,87.6 kg.eGFR (calculated from the MDRD study equation) and eCrCl(calculated from the Cockcroft-Gault equation) are based ondifferent parameters and may not yield comparable results.If eCrCl result is absurd, please check patient'sheight/weight. Estimated Glomerular Filt Rate 5 [facility] Comment:Chronic Kidney Disea se: Estimated GFR < 60 mL/min/1.91z9Harlzc Kidney Disease: Estimated GFR < 15 mL/min/1.73m2 Glucose 161(H) 60 - 115 mg/dL [facility] Calcium 8.8 8.4 - 10.2 mg/dL [facility] Bilirubin, Total 0.7 0.0 - 1.0 mg/dL [facility] Aspartate Amino Transferase 27 5 - 31 U/L [facility] Alanine Aminotransferase 18 0 - 31 U/L [facility] Total Protein 7.7 6.5 - 8.0 g/dL [facility] Albumin Level 4.1 3.5 - 5.0 g/dL [facility] Alkaline Phosphatase 141(H) 39 - 117 U/L [facility] 12/19/2024 1:33 PM EDT 12/19/2024 1:36 PM EDT us Generic External Data Provider LAB BLOOD ORDERAB LES Final Result Performing Organization Address [facility] Co de Phone Number [facility] [address] [place] [phone] * Lactic Acid (12/19/2024 1:33 PM EDT) Lactic Acid 1.9 0.5 - 2.0 mmol/L [facility] 12/19/2024 1:33 PM EDT 12/19/2024 1:36 PM EDT Generic External Data Provider LAB BLOOD ORDERAB LES Final Result Performing Organization Address [facility] Co de Phone Number [facility] [address] [place] [phone] * Partial Thromboplastin Time, Activated (APTT) (12/19/2024 1:33 PM EDT) Partial Thromboplastin Time 34.0 26.7 - 34.1 SEC [facility] 12/19/2024 1:33 PM EDT 12/19/2024 1:36 PM EDT us Generic External Data Provider LAB BLOOD ORDERAB LES Final Result [facility] [address] [place], [place] [phone] * (ABNORMAL) CBC auto differential (12/19/2024 1:33 PM EDT) White Blood Count 5.7 4.8 - 10.8 X10*3/uL [facility] Red Blood Count 3.36(L) 4.20 - 5.50 X10*6/uL [facility] Hemoglobin 10.3(L) 12.0 - 16.0 g/dl [facility] Hematocrit 32.2(L) 37.0 - 47.0 % [facility] Mean Corpuscular Volume 95.8 80.0 - 98.0 fL [facility] Mean Corpuscular Hemoglobin 30.7 27.0 - 33.0 pg [facility] Mean Corpuscular HGB Conc 32.0 31.0 - 35.0 g/dl [facility] Red Cell Distribution Width 14.3 11.0 - 16.0 % [facility] Platelet Count 116(L) 160 - 400 X10*3/uL [facility] Mean Platelet Volume 11.3 9.4 - 12.3 fL [facility] Neutrophils Percent Auto 68.9 45 - 73 % [facility] Imm Gran Pct Auto 0.4 0.0 - 0.4 % [facility] Lymphocytes Percent Auto 13.9(L) 20 - 40 % [facility] Monocytes Percent Auto 13.2(H) 2 - 11 % [facility] Eosinophils Percent Auto 3.2 0 - 4 % [facility] Basophils Percent Auto 0.4 0 - 2 % [facility] NRBC Pct Auto 0.0 0.0 - 0.2 /100WBC [facility] Neutrophils Absolute Auto 3.9 2.0 - 8.3 x10*3/uL [facility] Imm Gran Abs Auto 0.02 0.00 - 0.03 X10*3/uL [facility] Lymphocytes Absolute Auto 0.8(L) 1.2 - 4.9 X10*3/uL [facility] Monocytes Absolute Auto 0.8 0.1 - 1.2 X10*3/uL [facility] Eosinophils Absolute Auto 0.2 0.0 - 0.4 X10*3/uL [facility] Basophils Absolute Auto 0.0 0.0 - 0.2 X10*3/uL [facility] NRBC Abs Auto 0.000 0.0 - 0.012 X10*3/uL [facility] 12/19/2024 1:33 PM EDT 12/19/2024 1:36 PM EDT us Generic External Data Provider LAB BLOOD ORDERAB LES Final Result [facility] [address] [place] [phone] documented in this encounter Visit Diagnoses Not on filedocumented in this encounter Additional Health Concerns Assessment Noted Time PHQ-9 Depression Total Score: 0 10/23/19 24 2:23 PM EDT documented as of this encounter Care Teams Health Information Technologist Relationship Specialty Start Date End Date Genevieve Gtz MD [address] [place] [phone] PCP - General Internal Medicine 10/12/22 documented as of this encounter
--- OUTSIDE RECORDS SUMMARY | 2024-12-19 15:43 | XMS_ITS | Encounter Summary ---
Author Organization [facility] Address [address] [place] [phone] Phone Care Team Providers Care Tool Room Supervisor Name Role Phone EmilyAlyssa hutchinson Primary Care Provider Unava ilable Encounter Details Date Type Department Care Team (Late st Contact Info) Description 07/08/2024 TCM in Dialysis Clinic [facility] [address] [phone] Placido Carver MD [address] [phone] Social History Tobacco Use Types [...] 07/08/2024 The patient was seen for a [id number] visit as part of Transitional Care Management services. Attending Weather Clerk: PLACIDO CARVER MD Dialysis Location: [facility] Schedule: Shift: 2 INTERACTIVE CONTACT Contact [...] - No ulcers. VISIT DIAGNOSES CPT Code 98749 - High complexity, seen within 7 days of discharge. N18.6 End stage renal disease Signed by: PLACIDO CARVER MD on 07/26/2024 at 02:13:33 PM Transcribed by: PLACIDO CARVER MD on 07/26/2024 at 02:13:33 PM documented in this encounter Plan of Treatment Not on file documented as of this encounter Visit Diagnoses Not on filedocumented in this encounter Care Teams Tool Room Supervisor Relationship Specialty Start Date End Date Alyssa Manzano DO [address] [place] [address] PCP - General Family Medicine 03/02/21 documented as of this encounter
--- OUTSIDE RECORDS SUMMARY | 2024-12-19 15:43 | XMS_ITS | Encounter Summary ---
Author Organization [employer] Address [address] [facility] 7t [place] [address] Care Team Providers Care Psychological Assistant Name Role Phone Genevieve Gtz MD Primary Care Pro vider Reason for Visit * Reason Onset Date Comments Med Refill 12/19/2023 Encounter Details Date Type Department Care Team ([facility] Contact Info) Description 12/19/2023 Telephone [facility] MEDICINE [address] [place] [address] Genevieve Gtz MD [address] [place], [place] [phone] Med Refill Social History Tobacco Use Types [...] immediate release tablet To be sent to: [facility]/pharmacy #[id number] [place] [address] documented in this encounter Plan of Treatment Upcoming Encounters Date Type Department Care Team (Late st Contact Info) Description 12/31/2024 10:00 AM EST Telemedicine [facility] MED & PEDS [address] [place] [address] Paola Thurston RN [address] [place] [address] 02/11/2025 2:45 PM EST Clinical Support [facility] MED & PEDS [address] [place] [address] Paola Thurston RN [address] [place] [address] documented as of this encounter Goals Goal [...] documented as of this encounter Care Teams Psychological Assistant Relationship Specialty Start Date End Date Genevieve Gtz MD [address] [place] [address] PCP - General Internal Medicine 10/12/22 documented as of this encounter
--- OUTSIDE RECORDS SUMMARY | 2024-12-19 15:43 | XMS_ITS | Encounter Summary ---
Author Organization [employer] Address [address] [facility] 7t [place] [address] Care Team Providers Care Automobile Mechanic Assistant Name Role Phone Genevieve Gtz MD Primary Care Pro vider Reason for Visit * Reason Onset Date Comments Med Refill 12/15/2024 Encounter Details Date Type Department Care Team ([facility] Contact Info) Description 12/15/2024 Telephone [facility] MEDICINE [address] [place] [address] Genevieve Gtz MD 230 [place], [place] [phone] Med Refill Social History Tobacco Use Types [...] encounter Miscellaneous Notes * Telephone Encounter - Giuseppe Cadena - 12/15/2024 11:19 AM EDT TC from pt requesting medication refill. Medications needing refill : oxyCODONE (Roxicodone) 5 MG immediate release tablet To be sent to: [facility]/pharmacy #[id number] [place] [address] documented in this encounter Plan of Treatment Upcoming Encounters Date Type Department Care Team (Late st Contact Info) Description 12/31/2024 10:00 AM EST Telemedicine [facility] MED & PEDS [address] [place] [address] Paola Thurston RN [address] [place] [address] 02/11/2025 2:45 PM EST Clinical Support [facility] MED & PEDS [address] [place] [address] Paola Thurston RN [address] [place] [address] documented as of this encounter Goals Goal [...] documented as of this encounter Care Teams Automobile Mechanic Assistant Relationship Specialty Start Date End Date Genevieve Gtz MD [address] [place] [address] PCP - General Internal Medicine 10/12/22 documented as of this encounter
--- OUTSIDE RECORDS SUMMARY | 2024-12-19 15:43 | XMS_ITS | Clinical Summary ---
Author Organization [facility] Address [address] [place] [address] Care Team Providers Care Occupational Therapy Manager Name Role Phone Unavailable Primary Care Provider [...] 0.79 S/CO ratio 01/10/2022 10:39 AM EST [facility] Hepatitis C Antibody Interpretation Nonreactive Nonreactive 01/10/2022 10:39 AM EST [employer] Blood specimen (specimen) (Plasma/Serum) 01/09/2022 8:34 AM EST 01/09/2022 9:21 AM EST us Jaziel B Post MD LAB BLOOD ORDERABLES Final Resu lt HOSPITAL LAB [facility] [address] [place] [address] * HIV 1/2 Ag/Ab CMIA Reflex to Confirmation (01/09/2022 8:34 AM EST) HIV 1/2 Ag/Ab CMIA Nonreactive Nonreactive 01/10/2022 10:39 AM EST [facility] Comment: Results show no evidence of infection [...] BLOOD ORDERABLES Final Resu lt HOSPITAL LAB [facility] [address] [place] [address] from Last 3 Months or Most Recently Relevant to Health Maintenance Insurance [facility] Member Subscriber Plan / Payer ( fective 2022-Present) Name:Shereen Taylor Relation to Subscriber:Self Name:Shereen Taylor Payer ID:Not on file Group ID:Not on file Type:Not on file Address: [address] [id number] MISC MGD MEDICARE OUT OF NETWORK Advance Directives * Full Code (Latest Code Status on File) Date Activated Date Inactivated Comments 01/06/2022 5:00 AM Question Answer Comments Decision Thoroughly Discussed with: Unable to Ilda musa
--- OUTSIDE RECORDS SUMMARY | 2024-12-19 15:43 | XMS_ITS | Clinical Summary ---
Author Organization [address] [place] [address] Address [address] [place] [address] Phone Care Team Providers Care Sales Representative [facility] Name Role Phone Betty Nugent MD Primary Care Provider [phone] Surgical History Surgery Date Site/Laterality Comments SECTION [...] Cervical Cancer Screening: P ap Smear 2009 HPV Vaccines (1 - 3-dose SCD M series) 07/28/2015 DTaP,Tdap,and Td Vaccines (2 - Td or [...] complete this topic Insurance [place] - [place] [facility] Member Subscriber Plan / Payer (Ef fective 2023-Present) Name:ROWAN MULTANI Relation to Subscriber:Self Name:Rowan Multani Payer ID:[id number] Group ID:[id number] Type:Not on file Address: [address] [place] [phone] Care Teams Sales Representative [facility] Relationship Specialty Start Date End Date Betty Nugent MD [address] [place] [address] PCP - General Internal Medicine 01/10/18
--- OUTSIDE RECORDS SUMMARY | 2024-12-19 15:43 | XMS_ITS | Encounter Summary ---
Author Organization [employer] Address [address] [facility] 7t [place] [address] Care Team Providers Care Rn Triage Name Role Phone Genevieve Gtz MD Primary Care Pro vider Reason for Visit * Reason Onset Date Comments Med Refill 12/15/2024 Encounter Details Date Type Department Care Team ([facility] Contact Info) Description 12/15/2024 Refill [facility] MED & PEDS [address] [place] [address] Paola Thurston, RN [address] [place] [address] Chronic ulcer of left foot due to diabetes mellitus (HCC) Social History Tobacco Use Types Packs/Day Years [...] Upcoming Encounters Date Type Department Care Team ([facility] st Contact Info) Description 12/31/2024 10:00 AM EST Telemedicine [facility] MED & PEDS [address] [place] [address] Paola Thurston RN [address] [place] [address] 02/11/2025 2:45 PM EST Clinical Support [facility] MED & PEDS [address] [place] [address] Paola Thurston RN [address] [place] [address] documented as of this encounter Goals Goal [...] documented as of this encounter Care Teams Rn Triage Relationship Specialty Start Date End Date Genevieve Gtz MD [address] [place] [phone] PCP - General Internal Medicine 10/12/22 documented as of this encounter
--- OUTSIDE RECORDS SUMMARY | 2024-12-19 15:43 | XMS_ITS | Clinical Summary ---
Author Organization [facility] Address [address] [address] Phone Care Team Providers Care Furniture Shampooer Name Role Phone Katlyn Manzanofer Primary Care [...] Encounters Date Type Department Care Team Description 12/04/2024 Treatment [facility] [address] [address] Ed Carver MD End stage renal disease; Dependence on renal dialysis 11/25/2024 Treatment [facility] [address] [phone] Ed Carver MD End stage renal disease; Dependence on renal dialysis 11/22/2024 [facility] in Dialysis Clinic [facility] [address] [address] Ed Carver MD 11/22/2024 Treatment [facility] [address] [address] Ed Carver MD End stage renal disease; Dependence on renal dialysis 10/25/2024 Treatment [facility] [address] [phone] Ed Carver MD End stage renal disease; Dependence on renal dialysis 10/21/2024 Treatment [facility] [address] [address] Ed Carver MD End stage renal disease; Dependence on renal dialysis 10/14/2024 Treatment [facility] [address] [phone] Ed Carver MD End stage renal disease; Dependence on renal dialysis 10/09/2024 Treatment [facility] [address] [address] Ed Carver MD End stage renal disease; Dependence on renal dialysis 10/02/2024 Orders Only [facility] [address] [address] Ed Carver MD 09/25/2024 Treatment [facility] [address] [address] Ed Carver MD End stage renal disease; Dependence on renal dialysis 09/23/2024 [facility] in Dialysis Clinic [facility] [address] [address] Ed Carver MD 09/23/2024 Treatment [facility] [address] [address] Ed Carver MD End stage renal disease; [...] (#1) 2024 09/30/2016, 2011 Diabetes: Hemoglobin A1C 02/27/2025 025, 09/02/2024, 06/05/2024, Additional history exists Procedures Procedure Name Priority Date/Time Associated Diagnosis Comments HEMOGLOBIN Routine 12/18/2024 3:00 AM EDT HEMOGLOBIN A1C Routine 11/27/2024 3:00 AM EDT HEPATITIS B SURFACE ANTIGEN W/REFL CONFIRM Routine 11/27/2024 3:00 AM EDT TRANSFERRIN SATURATION Routine 3:00 AM EDT PROTEIN, TOTAL, SERUM Routine 11/27/2024 3:00 AM EDT ELECTROLYTE PANEL Routine 11/27/2024 3:0 0 AM EDT MAGNESIUM Routine 11/27/2024 3:00 AM EDT LIPID PANEL Routine 11/27/2024 3:00 AM EDT LIH (HC) Routine 11/27/2024 3:00 AM EDT LACTATE DEHYDROGENASE Routine 11/27/2024 3:00 AM EDT GLUCOSE, RANDOM Routine 11/27/2024 3:00 AM EDT CREATININE, SERUM Routine 11/27/2024 3:0 0 AM EDT BUN/CREATININE RATIO Routine 11/27/2024 3:00 AM EDT AST Routine 11/27/2024 3:00 AM EDT BILIRUBIN, TOTAL Routine 11/27/2024 3:00 AM EDT CALCIUM PHOSPHORUS PRODUCT, ADJUSTED (HC) Routine 11/27/2024 3:00 AM EDT ALT Routine 11/27/2024 3:00 AM EDT ALKALINE PHOSPHATASE Routine 11/27/2024 3:00 AM EDT PTH, INTACT Routine 11/27/2024 3:00 AM EDT FERRITIN Routine 11/27/2024 3:00 AM EDT CBC AND DIFFERENTIAL Routine 11/27/2024 3:00 AM EDT KT/V NATURAL LOG, URR (HC) Routine 11/27/2024 3:00 AM EDT HEMOGLOBIN Routine 11/20/2024 3:00 AM EDT HEMOGLOBIN Routine 11/13/2024 3:00 AM EDT HEPATITIS [...] EDT HEMOGLOBIN Routine 09/18/2024 3:00 AM EDT from Last 3 Months Results * (ABNORMAL) Hemoglobin (12/18/2024 3:00 AM EDT) Only the most recent of7 resultswithin the time period is included. Hgb 9.5(L) 11.2 - 15.7 g/dL [facility] Hemoglobin x 3 28.5(L) 33.6 - 47.1 g/dL [facility] 12/18/2024 3:00 AM EDT 12/19/2024 12:35 PM EDT us Ed Carver MD LAB BLOOD ORDERABLES Final Result Performing Organization Address [facility] de Phone Number [facility] [address] [place] [address] * LIH (11/27/2024 3:00 AM EDT) Only the most recent of5 resultswithin the time period is included. Lipemia Normal Normal [facility] Icterus Normal Normal [facility] Hemolysis Normal Normal [facility] 11/27/2024 3:00 AM EDT 11/28/2024 12:17 PM EDT us Ed Carver MD LAB HISTORICA [id number] RESULTS Final Result Performing Organization Address [facility] de Phone Number [facility] [address] [place] [address] * (ABNORMAL) Kt/V Natural Log, URR (11/27/2024 3:00 AM EDT) Only the most recent of4 resultswithin the time period is included. Pathologist [facility] Treatment Time 183 min [facility] Pre-Weight, lb 87.1 kg [facility] Post-Weight, lb 83.9 kg [facility] Ultrafiltration Rate 13 <=13 mL/kg/hr [facility] Comment: Recommend achieving Ultrafiltration Rate (UFR) <=10 mL/kg/hr References: Estelle GARCIA et al. Kidney Int. 2010; 79(2):250-257 BUN 77(H) 7 - 25 mg/dL [facility] BUN Post Dialysis 25 7 - 25 mg/dL [facility] UREA REDUCTION RATIO (%) 68 >=65 % [facility] Kt/V Natural Log 1.31 >=1.2 [facility] 11/27/2024 3:00 AM EDT 11/28/2024 12:13 PM EDT us Ed Carver MD LAB HISTORICA [id number] RESULTS Final Result Performing Organization Address [facility] Co de Phone Number [facility] [address] [place] [address] * (ABNORMAL) Calcium Phosphorus Product, Adjusted (11/27/2024 3:00 AM EDT) Only the most recent of3 resultswithin the time period is included. Albumin 4.0 3.6 - 5.4 g/dL [facility] Calcium 7.5(L) 8.6 - 10.3 mg/dL [facility] Phosphorus, Serum 9.7(H) 2.5 - 5.0 mg/dL [facility] Ca*PO4 72.8(A) <55.0 mg2/dL2 [facility] Calcium, Adjusted Total 7.5(L) 8.6 - 10.3 mg/dL [facility] CA*PO4 CORRCTD 72.8(A) <55.0 mg2/dL2 [facility] 11/27/2024 3:00 AM EDT 11/28/2024 12:17 PM EDT Ed Carver MD LAB HISTORICA [id number] RESULTS Final Result [facility] [address] [place] [address] * Hepatitis B Surface Ag w/Reflex Confirmation (11/27/2024 3:00 AM EDT) Only the most recent of3 resultswithin the time period is included. Hep B Surface Antigen Negative Negative [facility] 11/27/2024 3:00 AM EDT 11/28/2024 12:17 PM EDT Ed Carver MD LAB BLOOD ORDERABLES Final Result Performing Organization Address City/[facility]/ZIP Co de Phone Number [facility] [address] [place] [address] * BUN/CREATININE RATIO (11/27/2024 3:00 AM EDT) Only the most recent of3 resultswithin the time period is included. BUN/Creatinine Ratio 7.5 <=23.0 [facility] 11/27/2024 3:00 AM EDT 11/28/2024 12:17 PM EDT us Ed Carver MD LAB HISTORICA [id number] RESULTS Final Result Performing Organization Address [facility] de Phone Number [facility] [address] [place] [address] * (ABNORMAL) TSAT (11/27/2024 3:00 AM EDT) Only the most recent of3 resultswithin the time period is included. [facility] Iron 51 50 - 170 ug/dL [facility] Transferrin 158(L) 250 - 380 mg/dL [facility] TIBC 221 211 - 406 ug/dL [facility] Iron Saturation (TSat) 23 22 - 52 % [facility] 11/27/2024 3:00 AM EDT 11/28/2024 12:17 PM EDT Ed Carver MD LAB BLOOD ORDERABLES Final Result Performing Organization Address [facility] de Phone Number [facility] [address] [place] [address] * (ABNORMAL) CBC and Differential (11/27/2024 3:00 AM EDT) Only the most recent of3 resultswithin the time period is included. [facility] DIFFERENTIAL MANUAL, 2 Not Indicated [facility] White Blood Cells 4.7 4.0 - 10.0 K/uL [facility] RBC 2.72(L) 3.93 - 5.22 M/uL [facility] Hgb 8.5(L) 11.2 - 15.7 g/dL [facility] Hemoglobin x 3 25.5(L) 33.6 - 47.1 g/dL [facility] Hematocrit 27.1(L) 34.1 - 44.9 % [facility] MCV 99.6(H) 79.4 - 94.8 fL [facility] MCH 31.3 25.6 - 32.2 pg [facility] MCHC 31.4(L) 32.2 - 35.5 g/dL [facility] RDW 14.1 11.7 - 14.4 % [facility] Platelets 151(L) 182 - 369 K/uL [facility] MPV 12.7 9.2 - 12.8 fL [facility] Neutrophils Relative 63.3 34.0 - 71.1 % [facility] Lymphocytes Relative 15.9(L) 19.3 - 51.7 % [facility] Monocytes 13.5(H) 4.7 - 12.5 % [facility] Eosinophils Relative 5.6 0.7 - 5.8 % [facility] Basophils Relative 1.3(H) 0.1 - 1.2 % [facility] Immature Granulocytes 0.4 0.0 - 1.0 % [facility] 11/27/2024 3:00 AM EDT 11/28/2024 12:24 PM EDT us Ed Carver MD LAB BLOOD ORDERABLES Final Result Performing Organization Address [facility] Co de Phone Number [facility] [address] [place] [address] * (ABNORMAL) ALT (11/27/2024 3:00 AM EDT) Only the most recent of3 resultswithin the time period is included. ALT (SGPT) <7(L) 10 - 49 U/L [facility] 11/27/2024 3:00 AM EDT 11/28/2024 12:17 PM EDT us Ed Carver MD LAB BLOOD ORDERABLES Final Result Performing Organization Address [facility] de Phone Number [facility] [address] [place] [address] * AST (11/27/2024 3:00 AM EDT) Only the most recent of3 resultswithin the time period is included. AST (SGOT) 14 <34 U/L [facility] 11/27/2024 3:00 AM EDT 11/28/2024 12:17 PM EDT us Ed Carver MD LAB BLOOD ORDERABLES Final Result Performing Organization Address [facility] Co de Phone Number [facility] [address] [place] [address] * Protein, total (11/27/2024 3:00 AM EDT) Only the most recent of3 resultswithin the time period is included. Total Protein 6.9 6.4 - 8.9 g/dL [facility] 11/27/2024 3:00 AM EDT 11/28/2024 12:17 PM EDT us Ed Carver MD LAB BLOOD ORDERABLES Final Result Performing Organization Address [facility] Co de Phone Number [facility] [address] [place] [address] * (ABNORMAL) Alkaline phosphatase (11/27/2024 3:00 AM EDT) Only the most recent of3 resultswithin the time period is included. Alkaline Phosphatase 122(H) 46 - 116 U/L [facility] 11/27/2024 3:00 AM EDT 11/28/2024 12:17 PM EDT us Ed Carver MD LAB BLOOD ORDERABLES Final Result Performing Organization Address [facility] de Phone Number [facility] [address] [place] [address] * PTH, Intact (11/27/2024 3:00 AM EDT) PTH, Intact 550 160 - 721 pg/mL [facility] Comment: Suggested (KDIGO) ESRD maintenance range is two to nine times the upper normal limit (80.1 pg/mL) for the laboratory. 11/27/2024 3:00 AM EDT 11/28/2024 12:17 PM EDT us Ed Carver MD LAB BLOOD ORDERABLES Final Result Performing Organization Address City/[facility] Co de Phone Number [facility] [address] [place] [address] * Magnesium (11/27/2024 3:00 AM EDT) Only the most recent of3 resultswithin the time period is included. Magnesium 2.5 1.9 - 2.7 mg/dL [facility] 11/27/2024 3:00 AM EDT 11/28/2024 12:17 PM EDT us Ed Carver MD LAB BLOOD ORDERABLES Final Result Performing Organization Address [facility] Co de Phone Number [facility] [address] [place] [address] * (ABNORMAL) Lactate dehydrogenase (11/27/2024 3:00 AM EDT) Only the most recent of3 resultswithin the time period is included. LDH 260(H) 120 - 246 U/L [facility] 11/27/2024 3:00 AM EDT 11/28/2024 12:17 PM EDT us Ed Carver MD LAB BLOOD ORDERABLES Final Result Performing Organization Address [facility] de Phone Number [facility] [address] [place] [address] * (ABNORMAL) Hemoglobin A1c (11/27/2024 3:00 AM EDT) Hemoglobin A1C 5.7(H) <5.7 % [facility] Comment: Methodology: Enzymatic Normal: <5.7% Prediabetes: 5.7-6.4% Diabetes: >6.4% Diabetic Glucose Control Evaluation: Therapeutic action suggested at >8.0% ADA recommends a glycemic goal of <7.0% 11/27/2024 3:00 AM EDT 11/28/2024 12:24 PM EDT us Ed Carver MD LAB BLOOD ORDERABLES Final Result Performing Organization Address [facility] de Phone Number [facility] [address] [place] [address] * (ABNORMAL) Glucose, random (11/27/2024 3:00 AM EDT) Only the most recent of3 resultswithin the time period is included. Glucose 217(H) 70 - 99 mg/dL [facility] Comment: ADA guidelines outline the following fasting glucose ranges: Normal: <100 Prediabetes: 100-125 Diabetes: >125 11/27/2024 3:00 AM EDT 11/28/2024 12:17 PM EDT us Ed Carver MD LAB BLOOD ORDERABLES Final Result Performing Organization Address City/[facility]/ZIP Co de Phone Number [facility] [address] [place] [address] * Ferritin (11/27/2024 3:00 AM EDT) Only the most recent of3 resultswithin the time period is included. Ferritin 166 10 - 291 ng/mL [facility] 11/27/2024 3:00 AM EDT 11/28/2024 12:17 PM EDT us Ed Carver MD LAB BLOOD ORDERABLES Final Result Performing Organization Address [facility] Co de Phone Number [facility] [address] [place] [address] * (ABNORMAL) Creatinine, serum (11/27/2024 3:00 AM EDT) Only the most recent of3 resultswithin the time period is included. Creatinine 10.25(H) 0.55 - 1.02 mg/dL [facility] 11/27/2024 3:00 AM EDT 11/28/2024 12:17 PM EDT us Ed Carver MD LAB BLOOD ORDERABLES Final Result Performing Organization Address City/[facility] Co de Phone Number [facility] [address] [place] [address] * Bilirubin, total (11/27/2024 3:00 AM EDT) Only the most recent of3 resultswithin the time period is included. Total Bilirubin 0.3 0.3 - 1.2 mg/dL [facility] 11/27/2024 3:00 AM EDT 11/28/2024 12:17 PM EDT Ed Carver MD LAB BLOOD ORDERABLES Final Result Performing Organization Address [facility] Co de Phone Number [facility] [address] [place] [address] * (ABNORMAL) Lipid panel (11/27/2024 3:00 AM EDT) Cholesterol 118 mg/dL [facility] Comment: Optimal: <200 Borderline: 200-239 High Risk: >239 Triglycerides 42 mg/dL [facility] Comment: Optimal: <150 Borderline: 150-200 High Risk: >200 HDL 38(L) mg/dL [facility] Comment: Optimal: >59 Borderline: 40-59 High Risk: <40 LDL-Calc 72 mg/dL [facility] Comment: Optimal: <100 Borderline: 100-159 High Risk: >159 VLDL Cholesterol Memo 8 mg/dL [facility] Comment: Optimal: <30 Borderline: 30-40 High Risk: >40 Chol/HDL Ratio 3.1 [facility] Comment: Optimal: <3.3 High Risk: >6.2 11/27/2024 3:00 AM EDT 11/28/2024 12:17 PM EDT Ed Carver MD LAB BLOOD ORDERABLES Final Result Performing Organization Address [facility] de Phone Number [facility] [address] [place] [address] * (ABNORMAL) Electrolyte panel (11/27/2024 3:00 AM EDT) Only the most recent of4 resultswithin the time period is included. Sodium 138 136 - 145 mEq/L [facility] Potassium 5.0 3.4 - 5.0 mEq/L [facility] Chloride 98 98 - 107 mEq/L [facility] Bicarbonate (CO2) 21 21 - 31 mEq/L [facility] Anion Gap 19(H) 3 - 14 mEq/L [facility] 11/27/2024 3:00 AM EDT 11/28/2024 12:17 PM EDT us Ed Carver MD LAB BLOOD ORDERABLES Final Result Performing Organization Address City/[facility]/ZIP Co de Phone Number [facility] [address] [place] [address] * (ABNORMAL) Phosphorus (10/21/2024 3:00 AM EDT) Phosphorus, Serum 8.8(H) 2.5 - 5.0 mg/dL [facility] 10/21/2024 3:00 AM EDT 10/22/2024 1:27 PM EDT us Ed Carver MD LAB BLOOD ORDERABLES Final Result Performing Organization Address [facility] Co de Phone Number [facility] [address] [place] [address] from Last 3 Months Insurance [facility] ([id number]) [place] [phone] [facility] ([id number]) [facility] ([id number]) Care Teams Furniture Shampooer Relationship Specialty Start Date End Date Alyssa Manzano DO [address] [place] [address] PCP - General Family Medicine 03/02/21
--- OUTSIDE RECORDS SUMMARY | 2024-12-19 15:43 | XMS_ITS | Encounter Summary ---
Author Organization [facility] Address [address] [facility] [address] [place] [address] Phone Care Team Providers Care Academic Records Specialist Name Role Phone Genevieve Gtz MD Primary Care Pro vider Encounter Details Date Type Department Care Team ([facility] Contact Info) Description 12/19/2024 Home Care Visit [facility] [address] [place] [phone] Angela Foster RN [address] [place], [place] [phone] [email or web address] CASE COMMUNICATION Social History Tobacco Use Types [...] Upcoming Encounters Date Type Department Care Team ([facility] Contact Info) Description 12/20/2024 7:45 AM EDT Appointment [facility] [address] [place] [address] Unscheduled, [facility] [address] [address] documented as of this encounter Visit Diagnoses Not on filedocumented in this encounter Care Teams Academic Records Specialist Relationship Specialty Start Date End Date Genevieve Gtz MD [address] [place] [address] PCP - General Internal Medicine 11/06/24 documented as of this encounter Additional Source Comments The information contained in this document represents components of the legal health record. It is not the complete legal health record.[facility]
--- OUTSIDE RECORDS SUMMARY | 2024-12-19 15:43 | XMS_ITS | Encounter Summary ---
Author Organization [employer] Address 75 [facility] 7t [place] [address] Care Team Providers Care Tube Balancer Name Role Phone Genevieve Gtz MD Primary Care Pro vider Reason for Visit * Reason Onset Date Comments Med Refill 12/05/2023 Encounter Details Date Type Department Care Team ([facility] Contact Info) Description 12/05/2023 Telephone [facility] 230 [place] [address] Genevieve Gtz MD 230 [place], [place] [phone] Med Refill Social History Tobacco Use Types [...] immediate release tablet To be sent to: [facility]/pharmacy #[id number] [place] [address] documented in this encounter Plan of Treatment Upcoming Encounters Date Type Department Care Team (Late st Contact Info) Description 12/31/2024 10:00 AM EST Telemedicine [facility] 505 [place] [address] Paola Thurston RN 505 [place] [address] 02/11/2025 2:45 PM EST Clinical Support [facility] 505 [place] [address] Paola Thurston RN 505 [place] [address] documented as of this encounter Goals Goal [...] documented as of this encounter Care Teams Tube Balancer Relationship Specialty Start Date End Date Genevieve Gtz MD [address] [place] [address] PCP - General Internal Medicine 10/12/22 documented as of this encounter
--- OUTSIDE RECORDS SUMMARY | 2024-12-19 15:43 | XMS_ITS | Encounter Summary ---
Author Organization [facility] Address [address] [place] [phone] Phone Care Team Providers Care Brake Lining Curer Name Role Phone EmilyAlyssa hutchinson Primary Care Provider Unava ilable Encounter Details Date Type Department Care Team (Late st Contact Info) Description 09/23/2024 TCM in Dialysis Clinic [facility] [address] [address] Placido Carver MD [address] [address] Social History Tobacco Use Types [...] 09/23/2024 The patient was seen for a [id number] visit as part of Transitional Care Management services. Attending Battery Recharger: PLACIDO CARVER MD Dialysis Location: [facility] Schedule: Shift: 2 INTERACTIVE CONTACT Contact [...] with the patient. VISIT DIAGNOSES CPT Code 28937 - High complexity, seen within 7 days of discharge. N18.6 End stage renal disease Signed by: PLACIDO CARVER MD on 09/23/2024 at 10:14:56 PM Transcribed by: PLACIDO CARVER MD on 09/23/2024 at 10:14:56 PM documented in this encounter Plan of Treatment Not on file documented as of this encounter Visit Diagnoses Not on filedocumented in this encounter Care Teams Brake Lining Curer Relationship Specialty Start Date End Date Alyssa Manzano DO [address] [place] [address] PCP - General Family Medicine 03/02/21 documented as of this encounter
--- OUTSIDE RECORDS SUMMARY | 2024-12-19 15:43 | XMS_ITS | Encounter Summary ---
Author Organization [facility] Address [address] [place] [address] Phone Care Team Providers Care Bargain Table Clerk Name Role Phone Genevieve Gtz MD Primary Care Pro vider Reason for Referral * Home Health Care - New Request Specialty Diagnoses / Procedures Referred By Contsidra t Referred To Contact Home Health Services Tawny Taylor, CHRIS [address] [place] [address] Phone: tel: [facility] [address] [place], [place] Phone: tel: fax: Referral ID Status Reason Start Date Expiration Date V isits Requested Visits Authorized [id number] New Request 12/15/2024 12/15/2025 1 1 Encounter Details Date Type Department Care Team ([facility] st Contact Info) Description 12/15/2024 Orders Only [facility] [address] [place], [place] [phone] Kirill Avila MD [address] [place] [address] Social History Tobacco Use Types Packs/Day Years [...] Care Team (Late st Contact Info) Description 12/20/2024 7:45 AM EDT Appointment [facility] [address] [place] [address] Unscheduled, [facility] Clinical [address] [address] Scheduled Referrals Name Type Priority Associated Diagnoses Orde r Schedule 4NEXT REFERRAL TO HOME HEALTH Outpatient Referral Routine Ordered: 12/15/2024 documented as of this encounter Visit Diagnoses Not on filedocumented in this encounter Care Teams Bargain Table Clerk Relationship Specialty Start Date End Date Genevieve Gtz MD [address] [place] [address] PCP - General Internal Medicine 11/06/24 documented as of this encounter Additional Source Comments The information contained in this document represents components of the legal health record. It is not the complete legal health record.[facility]
--- OUTSIDE RECORDS SUMMARY | 2024-12-19 15:43 | XMS_ITS | Encounter Summary ---
Author Organization [employer] Address [address] [place] [address] 7t [place] [address] Care Team Providers Care Reeling Machine Operator Name Role Phone Genevieve Gtz MD Primary Care Pro vider Reason for Visit * Reason Onset Date Comments Med Refill 10/26/2022 Encounter Details Date Type Department Care Team ([facility] st Contact Info) Description 10/26/2022 Telephone [facility] 230 [place], [place] [phone] Genevieve Gtz MD 230 [place], [place] [phone] Med Refill Social History Tobacco Use Types [...] medication oxycodone 5 mg. Please send to [facility]/pharmacy #[id number] - [place] - [address] Cool documented in this encounter Plan of Treatment Upcoming Encounters Date Type Department Care Team (Late st Contact Info) Description 12/31/2024 10:00 AM EST Telemedicine [facility] 505 [place] [address] Paola Thurston RN 505 [place] [address] 02/11/2025 2:45 PM EST Clinical Support [facility] 505 [place] [address] Paola Thurston RN 505 [place] [address] documented as of this encounter Visit Diagnoses Not on filedocumented in this encounter Additional Health Concerns Assessment Noted Time PHQ-9 Depression Total Score: 0 10/13/19 2:37 PM EDT documented as of this encounter Care Teams Reeling Machine Operator Relationship Specialty Start Date End Date Genevieve Gtz MD [address] [place] [address] PCP - General Internal Medicine 10/12/22 documented as of this encounter
--- OUTSIDE RECORDS SUMMARY | 2024-12-19 15:43 | XMS_ITS | Encounter Summary ---
Author Organization [facility] Address [address] [place] [phone] Phone Care Team Providers Care Liability Claims Examiner Name Role Phone EmilyAlyssa hutchinson Primary Care Provider Unava ilable Encounter Details Date Type Department Care Team (Late st Contact Info) Description 08/12/2024 TCM in Dialysis Clinic [facility] [address] [address] Placido Carver MD [address] [address] Social History Tobacco Use Types [...] - 08/12/2024 12:00 AM EDT Patient: Shereen Tayolr : 1990 Note Type: Dialysis TCM Service Date: 08/12/2024 The patient was seen for a uivh-vz-inqd visit as part of Transitional Care Management services. Attending Surgical Elastic Knitter Hand Frame: PLACIDO CARVER MD [facility] [...] follow-up appointments noted. VISIT DIAGNOSES CPT Code 62329 - High complexity, seen within 7 days of discharge. N18.6 End stage renal disease Signed by: PLACIDO CARVER MD on 08/12/2024 at 01:16:47 PM Transcribed by: PLACIDO CARVER MD on 08/12/2024 at 01:16:47 PM documented in this encounter Plan of Treatment Not on file documented as of this encounter Visit Diagnoses Not on filedocumented in this encounter Care Teams Liability Claims Examiner Relationship Specialty Start Date End Date Alyssa Manzano DO 230 [place] [address] PCP - General Family Medicine 03/02/21 documented as of this encounter
--- OUTSIDE RECORDS SUMMARY | 2024-12-19 15:43 | XMS_ITS | Encounter Summary ---
Author Organization [employer] Address 75 [facility] 7t [place] [address] Care Team Providers Care Facer Operator Name Role Phone Genevieve Gtz MD Primary Care Pro vider Reason for Visit * Reason Onset Date Comments Medication Question 11/11/2024 Encounter Details Date Type Department Care Team ([facility] Contact Info) Description 11/11/2024 Telephone [facility] [address] [place], [place] [phone] Genevieve Gtz MD 230 [place], [place] [phone] Medication Question Social History Tobacco Use Types [...] MG immediate release tablet Contact pt at [phone] documented in this encounter Plan of Treatment Upcoming Encounters Date Type Department Care Team (Late st Contact Info) Description 12/31/2024 10:00 AM EST Telemedicine [facility] 505 [place] [address] Paola Thurston RN 505 [place] [address] 02/11/2025 2:45 PM EST Clinical Support [facility] 505 [place] [address] Paola Thurston RN 505 [place] [address] documented as of this encounter Goals Goal [...] documented as of this encounter Care Teams Facer Operator Relationship Specialty Start Date End Date Genevieve Gtz MD [address] [place] [address] PCP - General Internal Medicine 10/12/22 documented as of this encounter
--- OUTSIDE RECORDS SUMMARY | 2024-12-19 15:43 | XMS_ITS | Encounter Summary ---
Author Organization [employer] Address 75 [facility] 7t [place] [address] Care Team Providers Care Ear Pull Machine Operator Name Role Phone Genevieve Gtz MD Primary Care Pro vider Reason for Visit * Reason Onset Date Comments Med Refill 12/15/2024 Encounter Details Date Type Department Care Team ([facility] st Contact Info) Description 12/15/2024 Refill [facility] 230 [place] [address] Genevieve Gtz MD 230 [place] [address] Benign essential hypertension Social History Tobacco Use [...] encounter Miscellaneous Notes * Telephone Encounter - Kadi Patrick LPN - 12/15/2024 11:20 AM EDT Last seen 03.07.24 * Telephone Encounter - Giuseppe Cadena - 12/15/2024 11:15 AM EDT TC from pt requesting medication refill. Medications needing refill : hydrALAZINE (Apresoline) 50 MG tablet carvedilol (Coreg) 12.5 MG tablet To be sent to: [facility]/pharmacy #[id number] [place] [address] documented in this encounter Plan of Treatment Upcoming Encounters Date Type Department Care Team (Late st Contact Info) Description 12/31/2024 10:00 AM EST Telemedicine [facility] 505 [place] [address] Paola Thurston RN 505 [place] [address] 02/11/2025 2:45 PM EST Clinical Support [facility] 505 [place] [address] Paola Thurston RN 505 [place] [address] documented as of this encounter Goals Goal [...] documented as of this encounter Care Teams Ear Pull Machine Operator Relationship Specialty Start Date End Date Genevieve Gtz MD [address] [place], [place] [phone] PCP - General Internal Medicine 10/12/22 documented as of this encounter
--- OUTSIDE RECORDS SUMMARY | 2024-12-19 15:43 | XMS_ITS | Encounter Summary ---
Author Organization [employer] Address 75 [facility] 7t [place] [address] Care Team Providers Care Cranberry Grower Name Role Phone Genevieve Gtz MD Primary Care Pro vider Reason for Visit * Reason Comments Med Refill Encounter Details Date Type Department Care Team (Late st Contact Info) Description 08/26/2023 Refill [facility] [address] [place], [place] [phone] Genevieve Gtz MD 230 [place], [place] [phone] Benign essential hypertension Social History Tobacco Use [...] Description 12/31/2024 10:00 AM EST Telemedicine [facility] 505 [place] [address] Paola Thurston RN 505 [place] [address] 02/11/2025 2:45 PM EST Clinical Support [facility] 505 [place] [address] Paola Thurston RN 505 [place] [address] documented as of this encounter Goals Goal [...] documented as of this encounter Care Teams Cranberry Grower Relationship Specialty Start Date End Date Genevieve Gtz MD [address] [place] [address] PCP - General Internal Medicine 10/12/22 documented as of this encounter
--- OUTSIDE RECORDS SUMMARY | 2024-12-19 15:43 | XMS_ITS | Clinical Summary ---
Author Organization [facility] Address [address] [place] [address] Phone Care Team Providers Care Registered Dental Assistant Name Role Phone Genevieve Gtz MD Primary Care Pro vider Encounters Date Type Department Care Team Description 12/19/2024 Home Care Visit [facility] [address] [place] [phone] Angela Foster RN CASE COMMUNICATION 12/15/2024 Orders Only [facility] [address] [place] [address] Homehealth, Interface ProviderMD 11/16/2024 Home Care Visit [facility] [address] [place] [address] Becca Saenz, KIRIT NON ADMIT HOME HEALTH VISIT 11/14/2024 Home Care Visit [facility] [address] [place] [address] Angela Foster RN CASE COMMUNICATION 11/10/2024 Home Care Visit [facility] [address] [place] [address] Angela Foster RN TELEPHONE ENCOUNTER 11/09/2024 Home Care Visit [facility] [address] [place] [address] Becca Saenz, KIRIT CASE COMMUNICATION 11/04/2024 Orders Only [facility] [address] [place], [place] [phone] [facility] Interface ProviderMD from Last 3 Months Social [...] Orientation Not on file Plan of Treatment Upcoming Encounters Date Type Department Care Team ([facility] st Contact Info) Description 12/20/2024 7:45 AM EDT Appointment [facility] [address] [place], [place] [phone] Unscheduled, [address] [address] Medical Devices Not on file Insurance [facility] MEDICARE REPLACEMENT JOVON SOLOMON [id number] [facility] MEDICARE REPLACEMENT CARE MEDICARE REPLACEMENT CARE MEDICARE REPLACEMENT ONE CARE MEDICARE REPLACEMENT [place] [address] [address] ONE CARE MEDICARE REPLACEMENT Care Teams Registered Dental Assistant Relationship Specialty Start Date End Date Genevieve Gtz MD [address] [place] [address] PCP - General Internal Medicine 11/06/24 Additional Source Comments The information contained in this document represents components of the legal health record. It is not the complete legal health record.[facility]
--- OUTSIDE RECORDS SUMMARY | 2024-12-19 15:43 | XMS_ITS | Encounter Summary ---
Author Organization [employer] Address 75 [facility] 7t [place] [address] Care Team Providers Care Shipsmith Name Role Phone Genevieve Gtz MD Primary Care Pro vider Reason for Visit * Reason Onset Date Comments Med Refill 01/14/2024 Encounter Details Date Type Department Care Team ([facility] Contact Info) Description 01/14/2024 Telephone [facility] 230 [place] [address] Genevieve Gtz MD 230 [place], [place] [phone] Med Refill Social History Tobacco Use Types [...] any questions you can contact pt at [phone]. * Telephone Encounter - Noelle Rodrigues - 01/14/2024 11:29 AM EST TC from pt requesting medication refill. Medications needing refill : oxyCODONE (Roxicodone) 5 MG immediate release tablet To be sent to: [facility]/pharmacy #[address] [place] [address] documented in this encounter Plan of Treatment Upcoming Encounters Date Type Department Care Team (Late st Contact Info) Description 12/31/2024 10:00 AM EST Telemedicine [facility] 505 [place] [address] Paola Thurston RN 505 [place] [address] 02/11/2025 2:45 PM EST Clinical Support [facility] 505 [place] [address] Paola Thurston RN 505 [place] [address] documented as of this encounter Goals Goal [...] documented as of this encounter Care Teams Shipsmith Relationship Specialty Start Date End Date Genevieve Gtz MD [address] [place] [address] PCP - General Internal Medicine 10/12/22 documented as of this encounter
[2024-12-19 16:20] VITALS: BP 164/69; PULSE 92; RESP 14; O2SAT 96
--- NOTE | 2024-12-19 16:37 | PC.NURSE ---
pt c/o generalized itching, medicated with benadryl as a result.
[2024-12-19 20:10] VITALS: BP 164/69; PULSE 92; RESP 14; TEMP 36.7; O2SAT 96
== END 2024-12-19 20:10 | disposition home or self-care (01) ==
PROVIDERS: Emergency Provider Emergency Medicine Emergency Medical Services; PCP Student in an Organized Health Care Education/Training Program
DX: M86.672 Other chronic osteomyelitis, left ankle and foot (principal); M79.672 Pain in left foot; R11.2 Nausea with vomiting, unspecified; Z79.899 Other long term (current) drug therapy
CPT/HCPCS: 36415; 80053; 83605; 83690; 85025; 85652; 85730; 86140; 87040; 96361; 96374; 96375; 96376; 99284; J1171; J1200; J2765

== ENCOUNTER 2024-12-21 11:45 | Emergency (ER) | payer OTHER, SELFPAY ==
--- NOTE | 2024-12-21 | ECG_ITS ---
Test Reason : CHEST PAIN Blood Pressure : */* mmHG Vent. Rate : 88 BPM Atrial Rate : 88 BPM P-R Int : 178 ms QRS Dur : 152 ms QT Int : 450 ms P-R-T Axes : 37 -38 68 degrees QTcB Int : 544 ms Normal sinus rhythm Possible Left atrial enlargement Left axis deviation Right bundle branch block Abnormal ECG When compared with ECG of 29-Oct-2024 09:44, No significant change was found Referred By: Generic ED Physician Electronically Signed By: JASKARAN COOL
--- NOTE | ~2024-12-21 | CT_ITS ---
CLINICAL HISTORY: severe chest and abd pain, ESRD CT abdomen and pelvis without contrast Comparison: CT/SR - CT ANGIO ABD AORTA RUNOFF - 07/08/24 17:32 EDT Findings: No consolidation or effusion. Cholecystectomy. Mild pancreatic atrophy. Liver, spleen, and adrenal glands are within limits. Cortical atrophy of the kidneys. No hydronephrosis. Left renal cyst. No bowel obstruction, pneumatosis or pneumoperitoneum. Normal appendix. Atherosclerosis of the aorta and its branches. Mild diffuse urinary bladder wall thickening. The bones are intact. IMPRESSION: Mild diffuse urinary bladder wall thickening, correlate for cystitis. No other acute intraabdominal or pelvic findings. This document has been electronically signed by: Marquita Pimentel MD on 12/21/2024 15:02:30
--- NOTE | ~2024-12-21 | CT_ITS ---
CLINICAL HISTORY: R sided headache, severe CT head without contrast Comparison: MR - MR HEAD/BRAIN WO CON - 10/29/24 20:[address]/MA/SR - CT HEAD WITHOUT IV CONTRAST - 10/29/24 11:57 EDT Findings: No acute intracranial hemorrhage, transcortical infarct, hydrocephalus, or mass effect. Chronic encephalomalacia in the right cerebellum. Chronic lacunar infarct left thalamus. Intracranial atherosclerosis. There is no sinus or mastoid fluid. Chronic deformity of the right globe. No skull fracture. IMPRESSION: 1. No acute intracranial findings. This document has been electronically signed by: Marquita Pimentel MD on 12/21/2024 14:58:51
--- NOTE | ~2024-12-21 | CT_ITS ---
CLINICAL HISTORY: R sided chest CT chest without contrast Comparison: CT/SR - CT ANGIO CHEST AORTA - 07/08/24 17:32 EDT Findings: Mild cardiomegaly. Right IJ central venous catheter tip is in the right atrium. Few subcentimeter mediastinal lymph nodes, favored to be reactive. Visualized thyroid gland is within normal limits. No consolidation or effusion. No acute findings in the visualized upper abdomen. No acute fractures. IMPRESSION: 1. No acute intrathoracic findings. This document has been electronically signed by: Marquita Pimentel MD on 12/21/2024 15:02:53
--- NOTE | ~2024-12-21 | XR_ITS ---
CLINICAL HISTORY: chest pain 1 view chest x-ray Comparison: CT/REG/SR - CT CHEST WO IV CON - 12/21/24 13:58 EDT CR - XR CHEST 1V - 09/04/24 22:12 EDT Findings: The lungs are clear. No pleural effusion or pneumothorax. Right IJ central venous catheter tip is in the right atrium. Cardiomegaly. No acute fracture. IMPRESSION: 1. No acute cardiopulmonary findings. This document has been electronically signed by: Marquita Pimentel MD on 12/21/2024 14:39:46
[2024-12-21 11:51] VITALS: BP 191/117; PULSE 88; O2SAT 100
[2024-12-21 11:57] VITALS: BP 200/107; PULSE 88; RESP 14; TEMP 36.7; O2SAT 99
[2024-12-21 11:59] VITALS: PULSE 88; RESP 19; TEMP 36.7; O2SAT 100; BMI 35.6
--- OUTSIDE RECORDS SUMMARY | 2024-12-21 12:18 | XMS_ITS | Encounter Summary ---
Author Organization [employer] Address 75 [facility] 7t [place] [address] Care Team Providers Care Surface Logging Systems Logger Name Role Phone Genevieve Gtz MD Primary Care Pro vider Reason for Visit * Reason Onset Date Comments Med Refill 01/08/2023 Encounter Details Date Type Department Care Team ([facility] Contact Info) Description 01/08/[address] [facility] MEDICINE 230 [place], [place] [phone] Genevieve Gtz MD 230 [place], [place] [phone] Med Refill Social History Tobacco Use Types [...] [facility] & PEDS 505 [place] [address] Paola Thurston RN 505 [place] [address] 02/11/2025 2:45 PM EST Clinical Support [facility] PEDS 505 [place] [address] Paola Thurston RN 505 [place] [address] documented as of this encounter Visit Diagnoses Not on filedocumented in this encounter Additional Health Concerns Assessment Noted Time PHQ-9 Depression Total Score: 0 10/13/19 2:37 PM EDT documented as of this encounter Care Teams Surface Logging Systems Logger Relationship Specialty Start Date End Date Genevieve Gtz MD [address] [place] [address] PCP - General Internal Medicine 10/12/22 documented as of this encounter
--- OUTSIDE RECORDS SUMMARY | 2024-12-21 12:18 | XMS_ITS | Encounter Summary ---
Author Organization [employer] Address 75 [facility] 7t [place] [address] Care Team Providers Care Binding Cementer French Cord Name Role Phone Genevieve Gtz MD Primary Care Pro vider Reason for Visit * Reason Onset Date Comments Med Refill 12/05/2023 Encounter Details Date Type Department Care Team ([facility] Contact Info) Description 12/05/2023 Telephone [facility] MEDICINE 230 [place] [address] Genevieve Gtz MD 230 [place], [place] [phone] Med Refill Social History Tobacco Use Types [...] immediate release tablet To be sent to: [facility]/pharmacy #[id number] [place] [address] documented in this encounter Plan of Treatment Upcoming Encounters Date Type Department Care Team (Late st Contact Info) Description 12/31/2024 10:00 AM EST Telemedicine [facility] 505 [place] [address] Paola Thurston RN 505 [place] [address] 02/11/2025 2:45 PM EST Clinical Support [facility] 505 [place] [address] Paola Thurston RN 505 [place] [address] documented as of this encounter Goals Goal [...] documented as of this encounter Care Teams Binding Cementer French Cord Relationship Specialty Start Date End Date Genevieve Gtz MD [address] [place] [address] PCP - General Internal Medicine 10/12/22 documented as of this encounter
--- OUTSIDE RECORDS SUMMARY | 2024-12-21 12:18 | XMS_ITS | Encounter Summary ---
Author Organization [employer] Address 75 [facility] 7t [place] [address] Care Team Providers Care Material Control Analyst Name Role Phone Genevieve Gtz MD Primary Care Pro vider Reason for Visit * Reason Onset Date Comments Med Refill 12/15/2024 Encounter Details Date Type Department Care Team ([facility] Contact Info) Description 12/15/2024 Telephone [facility] MEDICINE 230 [place] [address] Genevieve Gtz MD 230 [place], [place] [phone] Med Refill Social History Tobacco Use Types [...] immediate release tablet To be sent to: [facility]/pharmacy #[id number] [place] [address] documented in this encounter Plan of Treatment Upcoming Encounters Date Type Department Care Team (Late st Contact Info) Description 12/31/2024 10:00 AM EST Telemedicine [facility] MED & PEDS 505 [place] [address] Paola Thurston RN 505 [place] [address] 02/11/2025 2:45 PM EST Clinical Support [facility] & PED[facility] 505 [place] [address] Paola Thurston RN 505 [place] [address] documented as of this encounter Goals Goal [...] documented as of this encounter Care Teams Material Control Analyst Relationship Specialty Start Date End Date Genevieve Gtz MD [address] [place] [address] PCP - General Internal Medicine 10/12/22 documented as of this encounter
--- OUTSIDE RECORDS SUMMARY | 2024-12-21 12:18 | XMS_ITS | Encounter Summary ---
Author Organization [employer] Address [address] [facility] 7t [place] [address] Care Team Providers Care Personnel Generalist Manager Name Role Phone Genevieve Gtz MD Primary Care Pro vider Reason for Visit * Reason Onset Date Comments Med Refill 06/20/2024 Encounter Details Date Type Department Care Team ([facility] Contact Info) Description 06/20/2024 Telephone [facility] MEDICINE 230 [place] [address] Genevieve Gtz MD 230 [place], [place] [phone] Med Refill Social History Tobacco Use Types [...] to: [facility]/pharmacy #[id number] [place] [address] documented in this encounter Plan of Treatment Upcoming Encounters Date Type Department Care Team (Late st Contact Info) Description 12/31/2024 10:00 AM EST Telemedicine [facility] MED & [facility]EDS 505 [place] [address] Paola Thurston RN 505 [place] [address] 02/11/2025 2:45 PM EST Clinical Support [facility] [address] [place] [address] Paola Thurston RN 505 [place] [address] documented as of this encounter Goals Goal [...] as of this encounter Care Teams Personnel Generalist Manager Relationship Specialty Start Date End Date Genevieve Gtz MD [address] [place] [phone] PCP - General Internal Medicine 10/12/22 documented as of this encounter
--- OUTSIDE RECORDS SUMMARY | 2024-12-21 12:18 | XMS_ITS | Encounter Summary ---
Author Organization [employer] Address [address] [place] [address] 7t [place] [address] Care Team Providers Care Clinical Rn Manager Name Role Phone Carolina Hsu SENIOR SQL SERVER DEVELOPER Primary Care Provider Genevieve Wilson MD Primary Care Pro vider Encounter Details Date Type Department Care Team (Late Contact Info) Description 09/11/2022 Abstract [facility] MEDICINE 230 [place] [address] Carolina Hsu FNP Social History Tobacco Use [...] Info) Description 12/31/2024 10:00 AM EST Telemedicine [facility] MED & PEDS 505 [place] [address] Paola Thurston RN 505 [place] [address] 02/11/2025 2:45 PM EST Clinical Support [facility] [address] [place] [address] Paola Thurston RN 505 [place] [address] documented as of this encounter Visit Diagnoses Not on filedocumented in this encounter Care Teams Clinical Rn Manager Relationship Specialty Start Date End Date Carolina Hsu FNP PCP - General Family Medicine 01/16/22 10/11/22 Genevieve Gtz MD [address] [place] [phone] PCP - General Internal Medicine 10/12/22 documented as of this encounter
--- OUTSIDE RECORDS SUMMARY | 2024-12-21 12:18 | XMS_ITS | Encounter Summary ---
Author Organization [employer] Address [address] [place] [address] 7t [place] [address] Care Team Providers Care Road Freight Firer Name Role Phone Genevieve Gtz MD Primary Care Pro vider Reason for Visit * Reason Onset Date Comments Med Refill 11/27/2022 Encounter Details Date Type Department Care Team ([facility] st Contact Info) Description 11/27/2022 Telephone [facility] MEDICINE 230 [place], [place] [phone] Genevieve Gtz MD 230 [place], [place] [phone] Med Refill Social History Tobacco Use Types [...] medication oxycodone 5 mg. Please send to [facility]/pharmacy #[id number] - [place] - [address] Cool documented in this encounter Plan of Treatment Upcoming Encounters Date Type Department Care Team (Late st Contact Info) Description 12/31/2024 10:00 AM EST Telemedicine [facility] MED & PEDS 505 [place] [address] Paola Thurston RN 505 [place] [address] 02/11/2025 2:45 PM EST Clinical Support [facility] MED [facility] 505 [place] [address] Paola Thurston RN 505 [place] [address] documented as of this encounter Visit Diagnoses Not on filedocumented in this encounter Additional Health Concerns Assessment Noted Time PHQ-9 Depression Total Score: 0 10/13/19 2:37 PM EDT documented as of this encounter Care Teams Road Freight Firer Relationship Specialty Start Date End Date Genevieve Gtz MD [address] [place] [phone] PCP - General Internal Medicine 10/12/22 documented as of this encounter
--- OUTSIDE RECORDS SUMMARY | 2024-12-21 12:18 | XMS_ITS | Encounter Summary ---
Author Organization [employer] Address [address] [facility] 7t [place] [address] Care Team Providers Care Spiritual Counselor Name Role Phone Genevieve Gtz MD Primary Care Pro vider Reason for Visit * Reason Onset Date Comments Med Refill 12/19/2023 Encounter Details Date Type Department Care Team ([facility] Contact Info) Description 12/19/2023 Telephone [facility] MEDICINE 230 [place] [address] Genevieve Gtz MD 230 [place], [place] [phone] Med Refill Social History Tobacco Use Types [...] release tablet To be sent to: [facility]/pharmacy #[id number] [place] [address] documented in this encounter Plan of Treatment Upcoming Encounters Date Type Department Care Team (Late st Contact Info) Description 12/31/2024 10:00 AM EST Telemedicine [facility] MED & PEDS 505 [place] [address] Paola Thurston RN 505 [place] [address] 02/11/2025 2:45 PM EST Clinical Support [facility] MED & PEDS 505 [place] [address] Paola Thurston RN 505 [place] [address] documented as of this encounter Goals Goal [...] documented as of this encounter Care Teams Spiritual Counselor Relationship Specialty Start Date End Date Genevieve Gtz MD [address] [place] [phone] PCP - General Internal Medicine 10/12/22 documented as of this encounter
--- OUTSIDE RECORDS SUMMARY | 2024-12-21 12:18 | XMS_ITS | Encounter Summary ---
Author Organization [employer] Address 75 [facility] 7t [place] [address] Care Team Providers Care Enterprise Applications Manager Name Role Phone Genevieve Gtz MD Primary Care Pro vider Reason for Visit * Reason Onset Date Comments Med Refill 06/21/2023 Encounter Details Date Type Department Care Team ([facility] Contact Info) Description 06/21/2023 Telephone [facility] MEDICINE 230 [place], [place] [phone] Genevieve Gtz MD 230 [place], [place] [phone] Med Refill Social History Tobacco Use Types [...] tablet To be sent to: [facility]/pharmacy #[id number] - [place], [place] - [address] [place] [address] documented in this encounter Plan of Treatment Upcoming Encounters Date Type Department Care Team (Late st Contact Info) Description 12/31/2024 10:00 AM EST Telemedicine [facility] MED & PEDS 505 [place] [address] Paola Thurston RN 505 [place] [address] 02/11/2025 2:45 PM EST Clinical Support [facility] MED & PED[facility] 505 [place] [address] Paola Thurston RN 505 [place] [address] documented as of this encounter Goals Goal [...] documented as of this encounter Care Teams Enterprise Applications Manager Relationship Specialty Start Date End Date Genevieve Gtz MD [address] [place] [phone] PCP - General Internal Medicine 10/12/22 documented as of this encounter
--- OUTSIDE RECORDS SUMMARY | 2024-12-21 12:18 | XMS_ITS | Encounter Summary ---
Author Organization [employer] Address 75 [facility] 7t [place] [address] Care Team Providers Care Project Officer Name Role Phone Genevieve Gtz MD Primary Care Pro vider Reason for Visit * Reason Comments Med Change Request Encounter Details Date Type Department Care Team ([facility] st Contact Info) Description 03/15/2023 Refill [facility] MED & PEDS [address] [place], [place] [phone] Genevieve Gtz MD 230 [place], [place] [phone] Benign essential hypertension Social History Tobacco Use [...] [facility] MED & PEDS 505 [place] [address] Paola Thurston RN 505 [place] [address] 02/11/2025 2:45 PM EST Clinical Support [facility] MED & PEDS 505 [place] [address] Paola Thurston RN 505 [place] [address] documented as of this encounter Visit Diagnoses Diagnosis Benign essential hypertension Essential hypertension, benign documented in this encounter Additional Health Concerns Assessment Noted Time PHQ-9 Depression Total Score: 0 10/13/19 23 2:37 PM EDT documented as of this encounter Care Teams Project Officer Relationship Specialty Start Date End Date Genevieve Gtz MD [address] [place] [phone] PCP - General Internal Medicine 10/12/22 documented as of this encounter
--- OUTSIDE RECORDS SUMMARY | 2024-12-21 12:18 | XMS_ITS | Encounter Summary ---
Author Organization [employer] Address [address] [facility] 7t [place] [address] Care Team Providers Care Inspector Packer [employer] Container Name Role Phone Genevieve Gtz MD Primary Care Pro vider Reason for Visit * Reason Comments Med Refill Encounter Details Date Type Department Care Team (Late st Contact Info) Description 08/26/2023 Refill [facility] MED & PEDS [address] [place], [place] [phone] Genevieve Gtz MD 230 [place], [place] [phone] Benign essential hypertension Social History Tobacco Use [...] 12/31/2024 10:00 AM EST Telemedicine [facility] MED & PEDS 505 [place] [address] Paola Thurston RN 505 [place] [address] 02/11/2025 2:45 PM EST Clinical Support [facility] MED & PEDS 505 [place] [address] Paola Thurston RN 505 [place] [address] documented as of this encounter Goals Goal [...] as of this encounter Care Teams Inspector [employer] Relationship Specialty Start Date End Date Genevieve Gtz MD [address] [place] [phone] PCP - General Internal Medicine 10/12/22 documented as of this encounter
--- OUTSIDE RECORDS SUMMARY | 2024-12-21 12:18 | XMS_ITS | Encounter Summary ---
Author Organization [employer] Address [address] [place] [address] 7t [place] [address] Care Team Providers Care Auxiliary Operator Name Role Phone Carolina Hsu GAGGERMAN Primary Care Provider Genevieve Wilson MD Primary Care Pro vider Encounter Details Date Type Department Care Team (Late Contact Info) Description 09/11/2022 Abstract [facility] MEDICINE 230 [place] [address] Carolina Hsu FNP Social History Tobacco Use [...] AM EST Telemedicine [facility] MED & PEDS 505 [place] [address] Paola Thurston RN 505 [place] [address] 02/11/2025 2:45 PM EST Clinical Support [facility] MED & PEDS 505 [place] [address] Paola Thurston RN 505 [place] [address] documented as of this encounter Visit Diagnoses Not on filedocumented in this encounter Care Teams Auxiliary Operator Relationship Specialty Start Date End Date Carolina Hsu FNP PCP - General Family Medicine 01/16/22 10/11/22 Genevieve Gtz MD [address] [place] [phone] PCP - General Internal Medicine 10/12/22 documented as of this encounter
--- OUTSIDE RECORDS SUMMARY | 2024-12-21 12:18 | XMS_ITS | Encounter Summary ---
Author Organization [employer] Address [address] [facility] 7t [place] [address] Care Team Providers Care Garnett Room Worker Name Role Phone Genevieve Gtz MD Primary Care Pro vider Reason for Visit * Reason Onset Date Comments Call Back Request 06/15/2023 Encounter Details Date Type Department Care Team ([facility] Contact Info) Description 06/15/2023 Telephone [facility] MEDICINE 230 [place], [place] [phone] Genevieve Gtz MD 230 [place], [place] [phone] Call Back Request Social History Tobacco Use [...] pt requesting a call back in regards [employer] 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 documented in this encounter Plan of Treatment Upcoming Encounters Date Type Department Care Team ([facility] st Contact Info) Description 12/31/2024 10:00 AM EST Telemedicine [facility] MED & PEDS 505 [place] [address] Paola Thurston RN 505 [place] [address] 02/11/2025 2:45 PM EST Clinical Support [facility] MED & PEDS 505 [place] [address] Paola Thurston RN 505 [place] [address] documented as of this encounter Goals Goal [...] documented as of this encounter Care Teams Garnett Room Worker Relationship Specialty Start Date End Date Genevieve Gtz MD [address] [place] [phone] PCP - General Internal Medicine 10/12/22 documented as of this encounter
--- OUTSIDE RECORDS SUMMARY | 2024-12-21 12:18 | XMS_ITS | Clinical Summary ---
Author Organization [employer] Address [address] [facility] [address] [place] [address] Care Team Providers Care Missile Facilities Repairer Name Role Phone Genevieve Gtz MD Primary [...] ATTACHED FOR DETAILED DIRECTIONS 12/01/19 24 Active naloxone (Narcan) 4 mg/0.1 mL [...] 09/04/2024 Prolonged QT interval 09/04/2024 Toe necrosis ([facility]/HCC) 09/04/2024 Ulcer of left second toe 09/04/2024 Vitreous detachment 09/04/2024 Volume overload 09/04/2024 Opioid dependence 09/04/2024 Seizure disorder ([facility]) 09/04/2024 Long-term current use of opiate analgesic 2024 Neurogenic bladder 03/07/2024 Bacteremia due to Pseudomonas 01/03/2024 Infection due to 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 ([facility]) 10/23/2023 Seizure ([facility]) 10/23/2023 Opioid dependence with opioid-induced disorder ( [facility]) 10/23/2023 Blindness of both eyes [...] ulcer of left foot due to diabetes erum tus 08/26/2022 Overview (06/25/2023): Care managed by [...] DEPARTMENT Provider, Generic External Data 12/15/2024 Refill [facility] [address] [place] [address] Paola Thurston RN Chronic ulcer of left foot due to diabetes mellitus (HCC) 12/15/2024 Telephone [facility] [address] [place] [phone] Genevieve Gtz MD Med Refill 12/15/2024 Refill [facility] [address] [place] [phone] Genevieve Gtz MD Benign essential hypertension 12/10/2024 Orders Only [facility] External Provider, [facility] 12/09/2024 Orders Only GENERIC EXTERNAL DATA DEPARTMENT Provider, Generic External Data 12/04/2024 Refill [facility] [address] [place] [address] Paola Thurston RN Chronic ulcer of left foot due to diabetes mellitus (HCC) 12/04/2024 Telephone [facility] [address] [place] [phone] Genevieve Gtz MD Med Refill 12/01/2024 2:30 PM EDT Telemedicine [facility] [address] [place] [address] Paola Thurston, KIRIT Long-term current use of opiate analgesic 12/01/2024 Travel 11/25/2024 Telephone [facility] [address] [place] [phone] Genevieve Gtz MD chart prep 11/21/2024 Orders Only [facility] [address] [place] [phone] Genevieve Gtz MD Chronic ulcer of left foot due to diabetes mellitus ([facility]) 11/21/2024 Refill [facility] [address] [place] [address] Paola Thurston RN Chronic ulcer of left foot due to diabetes mellitus ([facility]) 11/21/2024 Telephone [facility] [address] [place] [phone] Genevieve Gtz MD Med Refill 11/20/2024 Telephone [facility] [address] [place] [address] Paola Thurston RN 11/19/2024 3:15 PM EDT Clinical Support [facility] [address] [place] [address] Paola Thurston RN Long-term current use of opiate analgesic (Primary Dx) 11/19/2024 Orders Only [facility] [address] [place] [phone] Genevieve Gtz MD 11/19/2024 Telephone [facility] [address] [place] [address] Paola Thurston RN 11/19/2024 Travel 11/11/[address] [address] Genevieve Gtz MD Medication Question 11/10/2024 Patient Outreach [facility] [address] [place] [address] Genevieve Gtz MD Pre-visit Planning (HDF scheduled. ) 11/10/2024 Telephone [facility] [address] [place] [phone] Genevieve Gtz MD telephone call 11/06/2024 Telephone [facility] [address] [place] [phone] Genevieve Gtz MD FYI 10/24/2024 Travel 10/24/2024 Telephone [facility] [address] [place] [address] Paola Thurston RN 10/23/2024 Refill [facility] [address] [place] [address] Paola Thurston RN Chronic ulcer of 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 (CMS/HCC); Chronic wound 10/23/2024 Telephone [facility] [address] [place] [address] Genevieve Gtz MD Med Refill 09/25/2024 Telephone [facility] [address] [place], [place] [phone] Genevieve Gtz MD chart prep from Last [...] Upcoming Encounters Date Type Department Care Team ([facility] st Contact Info) Description 12/31/2024 10:00 AM EST Telemedicine [facility] [address] [place] [address] Paola Thurston, KIRIT [address] [place] [address] 02/11/2025 2:45 PM EST Clinical Support [facility] [address] [place] [address] Paola Thurston, RN [address] [place] [address] Health Maintenance Due Date Last Done Comments [...] GREEN GEL Routine 12/19/2024 1:42 PM EDT BLOOD CULTURE (SECOND) Routine 1:42 PM EDT SED RATE BY MODIFIED WESTERGREN Routine 12/19/2024 1:33 PM EDT LIPASE Routine 12/19/2024 1:33 PM EDT C-REACTIVE PROTEIN Routine 12/19/2024 1: 33 PM EDT COMPREHENSIVE METABOLIC PANEL Routine 12/19/2024 1:33 PM EDT LACTIC ACID Routine 12/19/2024 1:33 PM EDT APTT Routine 12/19/2024 1:33 PM EDT CBC WITH AUTO DIFFERENTIAL Routine 12/19/2024 1:33 PM EDT BLOOD CULTURE (FIRST) Routine 12/19/2024 1:33 PM EDT MR FOOT [...] PM EDT) Hold Green Gel See Note [facility] Comment:Specimen held untest ed for 24 hours; Call to requestChemistry testing. 12/19/2024 1:42 PM EDT 12/19/2024 1:49 PM EDT us Generic External Data Provider HISTORICAL/NON OR DERABLE LABS Final Result [facility] [address] [place] [phone] * (ABNORMAL) CBC auto differential (12/19/2024 1:33 PM EDT) Only the most recent of2 resultswithin the time period is included. White Blood Count 5.7 4.8 - 10.8 X10*3/uL [facility] Red Blood Count 3.36(L) 4.20 - 5.50 X10*6/uL [facility] Hemoglobin 10.3(L) 12.0 - 16.0 g/dl [facility] Hematocrit 32.2(L) 37.0 - 47.0 % [facility] Mean Corpuscular Volume 95.8 80.0 - 98.0 fL [facility] Mean Corpuscular Hemoglobin 30.7 27.0 - 33.0 pg [facility] Mean Corpuscular HGB Conc 32.0 31.0 - 35.0 g/dl [facility] Red Cell Distribution Width 14.3 11.0 - 16.0 % [facility] Platelet Count 116(L) 160 - 400 X10*3/uL [facility] Mean Platelet Volume 11.3 9.4 - 12.3 fL [facility] Neutrophils Percent Auto 68.9 45 - 73 % [facility] Imm Gran Pct Auto 0.4 0.0 - 0.4 % [facility] Lymphocytes Percent Auto 13.9(L) 20 - 40 % [facility] Monocytes Percent Auto 13.2(H) 2 - 11 % [facility] Eosinophils Percent Auto 3.2 0 - 4 % [facility] Basophils Percent Auto 0.4 0 - 2 % [facility] NRBC Pct Auto 0.0 0.0 - 0.2 /100WBC [facility] Neutrophils Absolute Auto 3.9 2.0 - 8.3 x10*3/uL [facility] Imm Gran Abs Auto 0.02 0.00 - 0.03 X10*3/uL [facility] Lymphocytes Absolute Auto 0.8(L) 1.2 - 4.9 X10*3/uL [facility] Monocytes Absolute Auto 0.8 0.1 - 1.2 X10*3/uL [facility] Eosinophils Absolute Auto 0.2 0.0 - 0.4 X10*3/uL [facility] Basophils Absolute Auto 0.0 0.0 - 0.2 X10*3/uL [facility] NRBC Abs Auto 0.000 0.0 - 0.012 X10*3/uL [facility] 12/19/2024 1:33 PM EDT 12/19/2024 1:36 PM EDT us Generic External Data Provider LAB BLOOD ORDERAB LES Final Result Performing Organization Address [facility]/ZIP Co de Phone Number [facility] [address] [place] [phone] * Partial Thromboplastin Time, Activated (APTT) (12/19/2024 1:33 PM EDT) Partial Thromboplastin Time 34.0 26.7 - 34.1 SEC [facility] 12/19/2024 1:33 PM EDT 12/19/2024 1:36 PM EDT us Generic External Data Provider LAB BLOOD ORDERAB LES Final Result Performing Organization Address [facility]/ZIP Co de Phone Number [facility] [address] [place] [phone] * (ABNORMAL) Sed Rate by Modified Westergren (12/19/2024 1:33 PM EDT) Only the most recent of2 resultswithin the time period is included. Erythrocyte Sedimentation Rate 54(H) 0 - 20 MM/HR [facility] Comment:Patients with polycy themia and many hemoglobin abnormalitiesmay have depressed sed rates whereas patients with anemiamay have elevated sed rates. 12/19/2024 1:33 PM EDT 12/19/2024 1:36 PM EDT Generic External Data Provider LAB BLOOD ORDERAB LES Final Result Performing Organization Address [facility] Co de Phone Number [facility] [address] [place] [phone] * (ABNORMAL) C-reactive Protein (12/19/2024 1:33 PM EDT) C Reactive Protein 0.84(H) < or = 0.50 mg/dL [facility] 12/19/2024 1:33 PM EDT 12/19/2024 1:36 PM EDT Generic External Data Provider LAB BLOOD ORDERAB LES Final Result Performing Organization Address [facility] Co de Phone Number [facility] [address] [place] [phone] * Lipase (12/19/2024 1:33 PM EDT) Only the most recent of2 resultswithin the time period is included. Lipase 37 8 - 78 U/L [facility] 12/19/2024 1:33 PM EDT 12/19/2024 1:36 PM EDT Generic External Data Provider LAB BLOOD ORDERAB LES Final Result Performing Organization Address [facility] Co de Phone Number [facility] [address] [place] [phone] * Lactic Acid (12/19/2024 1:33 PM EDT) Only the most recent of2 resultswithin the time period is included. Lactic Acid 1.9 0.5 - 2.0 mmol/L [facility] 12/19/2024 1:33 PM EDT 12/19/2024 1:36 PM EDT us Generic External Data Provider LAB BLOOD ORDERAB LES Final Result [facility] [address] [place] [phone] * (ABNORMAL) Comprehensive Metabolic Panel (12/19/2024 1:33 PM EDT) Only the most recent of2 resultswithin the time period is included. Sodium 140 135 - 145 mmol/L [facility] Potassium 5.4(H) 3.3 - 5.1 mmol/L [facility] Chloride 103 96 - 108 mmol/L [facility] Carbon Dioxide 25 22 - 29 mmol/L [facility] Anion Gap 17 12 - 20 [facility] Urea Nitrogen (BUN) 60(H) 9 - 16 mg/dL [facility] Creatinine, Serum 8.83(HH) 0.5 - 1.4 mg/dL [facility] Comment:Critical value for C REAT: Results called to and read backby: RAJAN Person calling: DYRYANNEI Date: 12/19/24 Time:1402 Creatinine Clr Calc Pharmacy 9.8 [facility] Comment:Provided height and weight: 167.64 cm,87.6 kg.eGFR (calculated from the MDRD study equation) and eCrCl(calculated from the Cockcroft-Gault equation) are based ondifferent parameters and may not yield comparable results.If eCrCl result is absurd, please check patient'sheight/weight. Estimated Glomerular Filt Rate 5 [facility] Comment:Chronic Kidney Disea se: Estimated GFR < 60 mL/min/1.65a2Huhgbi Kidney Disease: Estimated GFR < 15 mL/min/1.73m2 Glucose 161(H) 60 - 115 mg/dL [facility] Calcium 8.8 8.4 - 10.2 mg/dL [facility] Bilirubin, Total 0.7 0.0 - 1.0 mg/dL [facility] Aspartate Amino Transferase 27 5 - 31 U/L [facility] Alanine Aminotransferase 18 0 - 31 U/L [facility] Total Protein 7.7 6.5 - 8.0 g/dL [facility] Albumin Level 4.1 3.5 - 5.0 g/dL [facility] Alkaline Phosphatase 141(H) 39 - 117 U/L [facility] 12/19/2024 1:33 PM EDT 12/19/2024 1:36 PM EDT us Generic External Data Provider LAB BLOOD ORDERAB LES Final Result Performing Organization Address City/State/[facility] Co de Phone Number [facility] [address] [place] [phone] * MR Foot w and w/o Contrast Left (12/11/2024 12:21 PM EDT) Anatomical Region Laterality Modality Lower Extremities, Foot Left Magnetic Resonance 12/11/2024 12:2 1 PM EDT Narrative 12/11/2024 2:14 PM EDT [place] [address] Magnetic Resonance Report Signed Patient: Shereen Taylor MR#: [id number] : 1990 Acct:[id number] Age/Sex: 34 / F ADM Date: 12/10/24 Loc: HO.S3 361-[address]: Ellen Frankel MD Ordering Physician: Lele Allan MD Date of Service: 12/11/24 Procedure(s): MR foot LT wo/w con Accession Number(s): [id number] cc: Lele Allan MD; Genevieve Gtz MD [...] 12/11/24 1411 DD/ 1221 TD/TT: 12/11/24 1310 Radiation Oncology Manager: CRISTI Procedure Note Donotuseinterpreter, Image - 12/11/2024 [place] [address] Magnetic Resonance Report Signed Patient: Christian TaylorR#: [id number] : 1990Acct:[id number] Age/Sex: 34 / FADM Date: 12/10/24 Loc: .S3 361-[address]: Ellen Frankel MD Ordering Physician: Lele Allan MD Date of Service: 12/11/24 Procedure(s): MR foot LT wo/w con Accession Number(s): [id number] cc: Lele Allan MD; Genevieve Gtz MD [...] 12/11/24 1411 DD/ 1221 TD/TT: 12/11/24 1310 Radiation Oncology Manager: CRISTI [facility] External Provider IMG MRI PROCEDURES Final Result * XR Foot 1-2 Views Left (12/09/2024 8:38 PM EDT) Anatomical Region Laterality Modality Lower Extremities, Foot Left Radiogra phic Imaging 12/09/2024 8:38 PM EDT Narrative 12/09/2024 8:42 PM EDT [address] [address] XRay Report Signed Patient: Shereen Taylor MR#: [id number] : 1990 Acct:[id number] Age/Sex: 34 / F ADM Date: 12/09/24 Loc: HO.ED Attending Dr: Ordering Physician: Generic ED Physician Date of Service: 12/09/24 Procedure(s): XR foot LT 2V Accession Number(s): [id number] cc: Generic ED Physician; Genevieve Gtz MD [...] in OV> 12/09/242039 DD/ 37 TD/TT: 12/09/242037 Radiation Oncology Manager: Procedure Note Donotuseinterpreter, Image - 12/09/2024 [place] [address] XRay Report Signed Patient: Danna Taylor#: [id number] : 1990Acct:[id number] Age/Sex: 34 / FADM Date: 12/09/24 Loc: .ED Attending Dr: Ordering Physician: Generic ED Physician Date of Service: 12/09/24 Procedure(s): XR foot LT 2V Accession Number(s): [id number] cc: Generic ED Physician; Genevieve Gtz MD [...] in OV> 12/09/242039 DD/ 37 TD/TT: 12/09/242037 Radiation Oncology Manager: [facility] External Provider IMG XR PROCEDURES Final Result * (ABNORMAL) High Sensitivity Troponin I (12/09/2024 7:08 PM EDT) TROPONIN I HIGH SENSITIVITY 63.4(HH) <3.5 - 17.0 ng/L [facility] Comment:Critical value for t est(s): TROP Results called to and readback by: SHWETA Person calling: SHANELL Date:12/09/24Time: 1939[employer] [place] high sensitivity Troponin-I results should beused in conjunction with other diagnostic information suchas ECG, clinical observations and information, and patientsymptoms to aid in the diagnosis of MO. 12/09/2024 7:08 PM EDT 12/09/2024 7:13 PM EDT Generic External Data Provider LAB BLOOD ORDERAB LES Final Result Performing Organization Address City/State/[facility] Co de Phone Number [facility] [address] [place] [phone] * (ABNORMAL) Prothrombin Time-INR (12/09/2024 7:08 PM EDT) Prothrombin Time 12.7(H) 10.9 - 12.4 SEC [facility] INTERNATIONAL NORM RATIO 1.1 0.9 - 1.1 [facility] Comment:INTERNATIONAL NORMAL IZED RATIO (INR) REFERENCE [...] ORDERAB LES Final Result Performing Organization Address City/[facility] Co de Phone Number [facility] [address] [place] [phone] * Magnesium (12/09/2024 7:08 PM EDT) [facility] Magnesium 2.4 1.6 - 2.6 mg/dL [facility] 12/09/2024 7:08 PM EDT 12/09/2024 7:13 PM EDT Generic External Data Provider LAB BLOOD ORDERAB LES Final Result Performing Organization Address [facility] Co de Phone Number [facility] [address] [place] [phone] * Hepatic Function Panel (12/09/2024 7:08 PM EDT) [facility] Bilirubin, Direct 0.3 0.0 - 0.5 mg/dL [facility] 12/09/2024 7:08 PM EDT 12/09/2024 7:13 PM EDT Generic External Data Provider LAB BLOOD ORDERAB LES Final Result Performing Organization Address [facility] de Phone Number [facility] [address] [place] [phone] * Drug Toxicology Monitoring Base Panel, w/Confirmation, Oral Fluid (11/19/2024 12:00 AM EDT) Drug Tox Panel with Confirmation SEE NOTE [facility] Comment: Test Ordered Result Cutoff DRUG [...] Negative 5.0 ng/mLFor additional information, please refer tohttp://education.[employer]/faq/SPH953 (This linkis being provided for informational/ educational purposesonly.) This drug testing is for medical treatment only.Analysis was performed as non-forensic testing and theseresults should be used only by healthcare providers torender diagnosis or treatment, or to monitor progress ofmedical conditions. For assistance with interpreting thesedrug results, please contact a [facility] ToxicologySpecialist: [phone] ( ), M-F, 8am-6pmEST. These tests were developed and their analyticalperformance characteristics have beendetermined by [employer]. They have not been clearedor a pproved by the FDA. These assays have been validatedpursuant to the CLIA regulations and are used for clinicalpurposes. PERFO RMING SITE:[employer], [address] [place] [phone] Special Ed Assistant: KORIN TRUONG MD,PHD, CLIA: [id number] 11/19/2024 11/19/2024 us Genevieve Casillas MD LAB BODY FLUIDS A ND STOOLS ORDERABLES Final Result Performing Organization Address [facility]/ZIP Co de Phone Number [facility] [address] [place] [phone] * Hepatitis C Antibody with Reflex to HCV, RNA, Quantitative, Real-Time PCR (03/07/2024 9:45 AM EST) Hepatitis C Antibody Nonreactive Nonreactive [facility] Comment:Antibodies to HCV no t detected; does not exclude early acuteHCV infection. Blood Venous blood specimen / Unknown 03/07/2024 9:45 AM EST 03/07/2024 11:34 AM EST us Genevieve Casillas MD LAB BLOOD ORDERAB LES Final Result Performing Organization Address [facility] Co de Phone Number [facility] [address] [place] [phone] * HIV-1/2 Antigen and Antibodies, Fourth Generation, with Reflexes (03/07/2024 9:45 AM EST) HIV AB/AG Nonreactive Nonreactive [facility] Comment:HIV-1 p24 Ag and/or HIV-1/HIV-2 Ab not detected.A test result that is nonreactive does not exclude thepossibility of exposure to or infection with HIV-1 and/orHIV-2. Nonreactive results in this assay for individualswith prior exposure to HIV-1 and/or HIV-2 may be due toantigen and antibody levels that are below the limit ofdetection of this assay.The [employer] HIV Ag/Ab Combo assay result andsupplemental assay results should be interpreted inconjunction with the patient's clinical presentation,history and other laboratory results. If the results areinconsistent with clinical evidence, additional testing issuggested to confirm the result. Blood Venous blood specimen / Unknown 03/07/2024 9:45 AM EST 03/07/2024 11:34 AM EST us Genevieve Casillas MD LAB BLOOD ORDERAB LES Final Result Performing Organization Address [facility] Co de Phone Number [facility] [address] [place] [address] [phone] * Hemoglobin A1c (03/07/2024 9:45 AM EST) Hemoglobin A1c 5.7 <6.0 % [facility] Comment:Hemoglobin A1C Refer ence Range Adults: 4.8 - 6.0 % Non diabetic: < 6.0 % Goal: < 7.0 %Additional Action Suggested: > 8.0 %Note: Hemoglobin A1c results are invalid for patients with abnormal amounts of HbF. Blood transfusions may impact the HbA1c concentration in the patient sample. Estimated Average Glucose 117 mg/dL [facility] Comment:eAG = Estimated ave rage glucose which is %A1C expressed asaverage glucose, using the formula of the F4X-JfddzwmOoqcbbm Glucose study (ADAG), Diabetes Care, Vol.31,#8,Aug. 2007 Blood Venous blood specimen / Unknown 03/07/2024 9:45 AM EST 03/07/2024 11:34 AM EST Genevieve Casillas MD LAB BLOOD ORDERAB LES Final Result Performing Organization Address [facility] Co de Phone Number [facility] [address] [place] [phone] * (ABNORMAL) Lipid Panel, Standard (03/07/2024 9:45 AM EST) Triglycerides 36 <150 mg/dL [facility] Comment:Desirable Triglyceri de: less than 150 mg/dLBorderline High Triglyceride 150-199 mg/dLHigh Triglyceride: 200-499 mg/dLVery High Triglyceride: greater than or equal to 5OO mg/dL Cholesterol 107 <200 mg/dL [facility] Comment:Desirable Cholestero l: less than 200 mg/dLBorderline High Cholesterol: 200-239 mg/dLHigh Cholesterol: greater than 239 mg/dL LDL Cholesterol Calculated 65 <100 mg/dL [facility] Comment:Desirable LDL: less than 100 mg/dLNear Optimal/Above Optimal LDL: 110- 129 mg/dLBorderline High LDL: 130-159 mg/dLHigh LDL: 160-189 mg/dLVery High LDL: greater than or equal to 190 mg/dL HDL Cholesterol 35(L) >40 mg/dL [facility] Comment:Desirable HDL: great er than 40 mg/dL Note: This HDL assay may give artificially low results in patients with liver disease. Blood Venous blood specimen / Unknown 03/07/2024 9:45 AM EST 03/07/2024 11:34 AM EST Genevieve Casillas MD LAB BLOOD ORDERAB LES Final Result [facility] [address] [place] [phone] from Last 3 Months or Most Recently Relevant to Health Maintenance Insurance [employer] < 65 [place] [id number] Care Teams Missile Facilities Repairer Relationship Specialty Start Date End Date Genevieve Gtz MD [address] [place] [phone] PCP - General Internal Medicine 10/12/22
--- OUTSIDE RECORDS SUMMARY | 2024-12-21 12:18 | XMS_ITS | Encounter Summary ---
Author Organization [employer] Address [address] [facility] 7t [place] [address] Care Team Providers Care Residential Specialist Name Role Phone Genevieve Gtz MD Primary Care Pro vider Reason for Visit * Reason Onset Date Comments Med Refill 12/04/2024 Encounter Details Date Type Department Care Team ([facility] Contact Info) Description 12/04/2024 Telephone [facility] MEDICINE [address] [place] [address] Genevieve Gtz MD 230 [place], [place] [phone] Med Refill Social History Tobacco Use Types [...] release tablet To be sent to: - [facility]/pharmacy #[id number] documented in this encounter Plan of Treatment Upcoming Encounters Date Type Department Care Team ([facility] st Contact Info) Description 12/31/2024 10:00 AM EST Telemedicine [facility] [address] [place] [address] Paola Thurston RN 505 [place] [address] 02/11/2025 2:45 PM EST Clinical Support [facility] [address] [place] [address] Paola Thurston RN 505 [place] [address] documented as of this encounter Goals Goal [...] documented as of this encounter Care Teams Residential Specialist Relationship Specialty Start Date End Date Genevieve Gtz MD [address] [place] [phone] PCP - General Internal Medicine 10/12/22 documented as of this encounter
--- OUTSIDE RECORDS SUMMARY | 2024-12-21 12:18 | XMS_ITS | Encounter Summary ---
Author Organization [employer] Address 75 [facility] 7t [place] [address] Care Team Providers Care Senior Product Analyst Name Role Phone Genevieve Gtz MD Primary Care Pro vider Reason for Visit * Reason Onset Date Comments Med Refill 01/14/2024 Encounter Details Date Type Department Care Team ([facility] Contact Info) Description 01/14/2024 Telephone [facility] MEDICINE 230 [place] [address] Genevieve Gtz MD 230 [place], [place] [phone] Med Refill Social History Tobacco Use Types [...] any questions you can contact pt at [phone]. * Telephone Encounter - Noelle Rodrigues - 01/14/2024 11:29 AM EST TC from pt requesting medication refill. Medications needing refill : oxyCODONE (Roxicodone) 5 MG immediate release tablet To be sent to: [facility]/pharmacy #[address] [place] [address] documented in this encounter Plan of Treatment Upcoming Encounters Date Type Department Care Team (Late st Contact Info) Description 12/31/2024 10:00 AM EST Telemedicine [facility] MED [facility] PED[facility] 505 [place] [address] Paola Thurston RN 505 [place] [address] 02/11/2025 2:45 PM EST Clinical Support [facility] 505 [place] [address] Paola Thurston RN 505 [place] [address] documented as of this encounter Goals Goal Patient Goal Type Associated Problems Recent Progress Patient-Stated? Author Blood Pressure < 140/90 Blood Pressure 129/75(2024 9:08 AM EST) No Jaime Chilel Hemoglobin A1c < 8 Result Component 5.7( 9:45 AM EST) No Jaiem Chilel documented as of this encounter Visit Diagnoses Not on filedocumented in this encounter Additional Health Concerns Assessment Noted Time PHQ-9 Depression Total Score: 0 10/23/19 24 2:23 PM EDT documented as of this encounter Care Teams Senior Product Analyst Relationship Specialty Start Date End Date Genevieve Gtz MD [address] [place] [phone] PCP - General Internal Medicine 10/12/22 documented as of this encounter
--- OUTSIDE RECORDS SUMMARY | 2024-12-21 12:18 | XMS_ITS | Encounter Summary ---
Author Organization [facility] Address [address] [place] [address] Phone Care Team Providers Care Process Mold Technician Name Role Phone Genevieve Gtz MD Primary Care Pro vider Encounter Details Date Type Department Care Team ([facility] Contact Info) Description 12/20/2024 Home Care Visit [facility] [address] [place] [phone] Becca Saenz, KIRIT [address] [place] [address] [email or web address] CASE COMMUNICATION Social History Tobacco Use Types [...] Upcoming Encounters Date Type Department Care Team ([facility] Contact Info) Description 12/21/2024 12:30 PM EDT Appointment [facility] [address] [place] [address] Freida Mohan RN [address] [place] [address] [email or web address] documented as of this encounter Visit Diagnoses Not on filedocumented in this encounter Care Teams Process Mold Technician Relationship Specialty Start Date End Date Genevieve Gtz MD [address] [place] [address] PCP - General Internal Medicine 11/06/24 documented as of this encounter Additional Source Comments The information contained in this document represents components of the legal health record. It is not the complete legal health record.[facility]
--- OUTSIDE RECORDS SUMMARY | 2024-12-21 12:18 | XMS_ITS | Encounter Summary ---
Author Organization [employer] Address [address] [facility] 7t [place] [address] Care Team Providers Care Manager Math Name Role Phone Geenvieve Gtz MD Primary Care Pro vider Encounter Details Date Type Department Care Team ([facility] st Contact Info) Description 12/19/2024 Orders Only [...] 12/31/2024 10:00 AM EST Telemedicine [facility] MED & PEDS [address] [place] [address] Paola Thurston RN 505 [place] [address] 02/11/2025 2:45 PM EST Clinical Support [facility] MED [facility] [address] [place] [address] Paola Thurston RN 505 [place] [address] Pending Results Name Type Priority Associated Diagnoses Date /Time Blood Culture (First) Microbiology Routine 12/19/2024 1:33 PM EDT Blood Culture (Second) Microbiology Routine 12/19/2024 1:42 PM EDT documented as of this encounter Goals Goal [...] BLOOD CULTURE (SECOND) Routine 1:42 PM EDT BLOOD CULTURE (FIRST) Routine 12/19/2024 1:33 PM EDT CBC WITH [...] PM EDT) Hold Green Gel See Note [facility] Comment:Specimen held untest ed for 24 hours; Call to requestChemistry testing. 12/19/2024 1:42 PM EDT 12/19/2024 1:49 PM EDT Generic External Data Provider HISTORICAL/NON OR DERABLE LABS Final Result Performing Organization Address [facility] Co de Phone Number [facility] [address] [place] [address] [phone] * (ABNORMAL) Sed Rate by Modified Westergren (12/19/2024 1:33 PM EDT) Erythrocyte Sedimentation Rate 54(H) 0 - 20 MM/HR [facility] Comment:Patients with polycy themia and many hemoglobin abnormalitiesmay have depressed sed rates whereas patients with anemiamay have elevated sed rates. 12/19/2024 1:33 PM EDT 12/19/2024 1:36 PM EDT us Generic External Data Provider LAB BLOOD ORDERAB LES Final Result Performing Organization Address [facility]/ZIP Co de Phone Number [facility] [address] [place] [phone] * Lipase (12/19/2024 1:33 PM EDT) Pathologist [facility] Lipase 37 8 - 78 U/L [facility] 12/19/2024 1:33 PM EDT 12/19/2024 1:36 PM EDT Generic External Data Provider LAB BLOOD ORDERAB LES Final Result Performing Organization Address [facility]/ZIP Co de Phone Number [facility] [address] [place] [phone] * (ABNORMAL) C-reactive Protein (12/19/2024 1:33 PM EDT) [facility] C Reactive Protein 0.84(H) < or = 0.50 mg/dL [facility] 12/19/2024 1:33 PM EDT 12/19/2024 1:36 PM EDT Generic External Data Provider LAB BLOOD ORDERAB LES Final Result Performing Organization Address [facility] Co de Phone Number [facility] [address] [place] [phone] * (ABNORMAL) Comprehensive Metabolic Panel (12/19/2024 1:33 PM EDT) Pathologist [facility] Sodium 140 135 - 145 mmol/L [facility] Potassium 5.4(H) 3.3 - 5.1 mmol/L [facility] Chloride 103 96 - 108 mmol/L [facility] Carbon Dioxide 25 22 - 29 mmol/L [facility] Anion Gap 17 12 - 20 [facility] Urea Nitrogen (BUN) 60(H) 9 - 16 mg/dL [facility] Creatinine, Serum 8.83(HH) 0.5 - 1.4 mg/dL [facility] Comment:Critical value for C REAT: Results called to and read backby: RAJAN Person calling: ALBERTINA Date: 12/19/24 Time:1402 Creatinine Clr Calc Pharmacy 9.8 [facility] Comment:Provided height and weight: 167.64 cm,87.6 kg.eGFR (calculated from the MDRD study equation) and eCrCl(calculated from the Cockcroft-Gault equation) are based ondifferent parameters and may not yield comparable results.If eCrCl result is absurd, please check patient'sheight/weight. Estimated Glomerular Filt Rate 5 [facility] Comment:Chronic Kidney Disea se: Estimated GFR < 60 mL/min/1.11u7Ofbzsw Kidney Disease: Estimated GFR < 15 mL/min/1.73m2 Glucose 161(H) 60 - 115 mg/dL [facility] Calcium 8.8 8.4 - 10.2 mg/dL [facility] Bilirubin, Total 0.7 0.0 - 1.0 mg/dL [facility] Aspartate Amino Transferase 27 5 - 31 U/L [facility] Alanine Aminotransferase 18 0 - 31 U/L [facility] Total Protein 7.7 6.5 - 8.0 g/dL [facility] Albumin Level 4.1 3.5 - 5.0 g/dL [facility] Alkaline Phosphatase 141(H) 39 - 117 U/L [facility] 12/19/2024 1:33 PM EDT 12/19/2024 1:36 PM EDT us Generic External Data Provider LAB BLOOD ORDERAB LES Final Result Performing Organization Address [facility] Co de Phone Number [facility] [address] [place] [phone] * Lactic Acid (12/19/2024 1:33 PM EDT) Lactic Acid 1.9 0.5 - 2.0 mmol/L [facility] 12/19/2024 1:33 PM EDT 12/19/2024 1:36 PM EDT us Generic External Data Provider LAB BLOOD ORDERAB LES Final Result Performing Organization Address [facility]/State/ZIP Co de Phone Number [facility] [address] [place] [address] [phone] * Partial Thromboplastin Time, Activated (APTT) (12/19/2024 1:33 PM EDT) Pathologist [facility] Partial Thromboplastin Time 34.0 26.7 - 34.1 SEC [facility] 12/19/2024 1:33 PM EDT 12/19/2024 1:36 PM EDT us Generic External Data Provider LAB BLOOD ORDERAB LES Final Result [facility] [address] [place] [address] [phone] * (ABNORMAL) CBC auto differential (12/19/2024 1:33 PM EDT) [facility] White Blood Count 5.7 4.8 - 10.8 X10*3/uL [facility] Red Blood Count 3.36(L) 4.20 - 5.50 X10*6/uL [facility] Hemoglobin 10.3(L) 12.0 - 16.0 g/dl [facility] Hematocrit 32.2(L) 37.0 - 47.0 % [facility] Mean Corpuscular Volume 95.8 80.0 - 98.0 fL [facility] Mean Corpuscular Hemoglobin 30.7 27.0 - 33.0 pg [facility] Mean Corpuscular HGB Conc 32.0 31.0 - 35.0 g/dl [facility] Red Cell Distribution Width 14.3 11.0 - 16.0 % [facility] Platelet Count 116(L) 160 - 400 X10*3/uL [facility] Mean Platelet Volume 11.3 9.4 - 12.3 fL [facility] Neutrophils Percent Auto 68.9 45 - 73 % [facility] Imm Gran Pct Auto 0.4 0.0 - 0.4 % [facility] Lymphocytes Percent Auto 13.9(L) 20 - 40 % [facility] Monocytes Percent Auto 13.2(H) 2 - 11 % [facility] Eosinophils Percent Auto 3.2 0 - 4 % [facility] Basophils Percent Auto 0.4 0 - 2 % [facility] NRBC Pct Auto 0.0 0.0 - 0.2 /100WBC [facility] Neutrophils Absolute Auto 3.9 2.0 - 8.3 x10*3/uL [facility] Imm Gran Abs Auto 0.02 0.00 - 0.03 X10*3/uL [facility] Lymphocytes Absolute Auto 0.8(L) 1.2 - 4.9 X10*3/uL [facility] Monocytes Absolute Auto 0.8 0.1 - 1.2 X10*3/uL [facility] Eosinophils Absolute Auto 0.2 0.0 - 0.4 X10*3/uL [facility] Basophils Absolute Auto 0.0 0.0 - 0.2 X10*3/uL [facility] NRBC Abs Auto 0.000 0.0 - 0.012 X10*3/uL [facility] 12/19/2024 1:33 PM EDT 12/19/2024 1:36 PM EDT us Generic External Data Provider LAB BLOOD ORDERAB LES Final Result Performing Organization Address City/State/[facility] Co de Phone Number [facility] [address] [place] [address] [phone] documented in this encounter Visit Diagnoses Not on filedocumented in this encounter Additional Health Concerns Assessment Noted Time PHQ-9 Depression Total Score: 0 10/23/19 24 2:23 PM EDT documented as of this encounter Care Teams Manager Math Relationship Specialty Start Date End Date Genevieev Gtz MD [address] [place] [address] PCP - General Internal Medicine 10/12/22 documented as of this encounter
--- OUTSIDE RECORDS SUMMARY | 2024-12-21 12:18 | XMS_ITS | Encounter Summary ---
Author Organization [employer] Address 75 [facility] 7t [place] [address] Care Team Providers Care Leather Goods I Assembler Name Role Phone Genevieve Gtz MD Primary Care Pro vider Reason for Visit * Reason Onset Date Comments Hospital Follow-up 03/04/2024 Encounter Details Date Type Department Care Team ([facility] Contact Info) Description 03/04/2024 Telephone [facility] MEDICINE [address] [place], [place] [phone] Genevieve Gtz MD [address] [place] [address] Hospital Follow-up Social History Tobacco Use Types [...] from pt requesting a HDF appt. Hospital: [facility] Date of admission: 02/21/2024 Discharge date: 02/01/2025 Diagnosed: Oxygen , Infection Dialysis tube *Send message to [facility] Clinical Care Coordinators documented in this encounter Plan of Treatment Upcoming Encounters Date Type Department Care Team ([facility] st Contact Info) Description 12/31/2024 10:00 AM EST Telemedicine [facility] MED [facility] [address] [place] [address] Paola Thurston RN [address] [place] [address] 02/11/2025 2:45 PM EST Clinical Support [facility] [address] [place] [address] Paola Thurston RN [address] [place] [address] documented as of this encounter Goals Goal [...] documented as of this encounter Care Teams Leather Goods I Assembler Relationship Specialty Start Date End Date Genevieve Gtz MD [address] [place] [address] PCP - General Internal Medicine 10/12/22 documented as of this encounter
--- OUTSIDE RECORDS SUMMARY | 2024-12-21 12:18 | XMS_ITS | Encounter Summary ---
Author Organization [facility] Address [address] [place] [phone] Phone Care Team Providers Care Want Ad Receiver Name Role Phone EmilyAlyssa hutchinson Primary Care Provider Unava ilable Encounter Details Date Type Department Care Team (Late st Contact Info) Description 11/22/2024 TCM in Dialysis Clinic [facility] [address] [address] Placido Carver MD [address] [address] Social History Tobacco Use Types [...] 11/22/2024 The patient was seen for a [id number] visit as part of Transitional Care Management services. Attending Photocopier Technician: PLACIDO CARVER MD Dialysis Location: [facility] Schedule: Shift: 2 INTERACTIVE CONTACT [...] with the patient. VISIT DIAGNOSES CPT Code 66733 - High complexity, seen 8-14 days post discharge or moderate complexity, seen days of discharge. N18.6 End stage renal disease Signed by: PLACIDO CARVER MD on 11/22/2024 at 01:18:26 PM Transcribed by: PLACIDO CARVER MD on 11/22/2024 at 01:18:26 PM documented in this encounter Plan of Treatment Not on file documented as of this encounter Visit Diagnoses Not on filedocumented in this encounter Care Teams Want Ad Receiver Relationship Specialty Start Date End Date Alyssa Manzano DO [address] [place] [address] PCP - General Family Medicine 03/02/21 documented as of this encounter
--- OUTSIDE RECORDS SUMMARY | 2024-12-21 12:18 | XMS_ITS | Encounter Summary ---
Author Organization [employer] Address 75 [facility] 7t [place] [address] Care Team Providers Care Truck Hopper Name Role Phone Genevieve Gtz MD Primary Care Pro vider Reason for Visit * Reason Onset Date Comments Med Refill 11/21/2024 Encounter Details Date Type Department Care Team ([facility] Contact Info) Description 11/21/2024 Telephone [facility] MEDICINE [address] [place] [address] Genevieve Gtz MD 230 [place], [place] [phone] Med Refill Social History Tobacco Use Types [...] release tablet To be sent to: - [facility]/pharmacy #[id number] documented in this encounter Plan of Treatment Upcoming Encounters Date Type Department Care Team ([facility] st Contact Info) Description 12/31/2024 10:00 AM EST Telemedicine [facility] MED & PEDS [address] [place] [address] Paola Thurston RN [address] [place] [address] 02/11/2025 2:45 PM EST Clinical Support [facility] [address] [place] [address] Paola Thurston RN 505 [place] [address] documented as of this encounter Goals Goal [...] documented as of this encounter Care Teams Truck Hopper Relationship Specialty Start Date End Date Genevieve Gtz MD [address] [place] [address] PCP - General Internal Medicine 10/12/22 documented as of this encounter
--- OUTSIDE RECORDS SUMMARY | 2024-12-21 12:18 | XMS_ITS | Encounter Summary ---
Author Organization [employer] Address [address] [place] [address] [address] [place] [address] Care Team Providers Care Cellular Equipment Installer Name Role Phone Genevieve Gtz MD Primary Care Pro vider Reason for Visit * Reason Onset Date Comments Med Refill 10/26/2022 Encounter Details Date Type Department Care Team ([facility] st Contact Info) Description 10/26/2022 Telephone [facility] MEDICINE 230 [place], [place] [phone] Genevieve Gtz MD 230 [place], [place] [phone] Med Refill Social History Tobacco Use Types [...] medication oxycodone 5 mg. Please send to [facility]/pharmacy #[id number] - [place] - [address] Cool documented in this encounter Plan of Treatment Upcoming Encounters Date Type Department Care Team (Late st Contact Info) Description 12/31/2024 10:00 AM EST Telemedicine [facility] MED & PED[facility] [address] [place] [address] Paola Thurston RN [address] [place] [address] 02/11/2025 2:45 PM EST Clinical Support [facility] [address] [place] [address] Paola Thurston RN [address] [place] [address] documented as of this encounter Visit Diagnoses Not on filedocumented in this encounter Additional Health Concerns Assessment Noted Time PHQ-9 Depression Total Score: 0 10/13/19 2:37 PM EDT documented as of this encounter Care Teams Cellular Equipment Installer Relationship Specialty Start Date End Date Genevieve Gtz MD [address] [place] [address] PCP - General Internal Medicine 10/12/22 documented as of this encounter
--- OUTSIDE RECORDS SUMMARY | 2024-12-21 12:18 | XMS_ITS | Clinical Summary ---
Author Organization [address] [place] [address] Address [address] [place] [address] Phone Care Team Providers Care Automobile Brakes Bonder Name Role Phone Betty Nugent MD Primary Care Provider [phone] Surgical History Surgery Date Site/Laterality Comments SECTION [...] complete this topic Insurance [place]ICA[place] - [place] [facility] Member Subscriber Plan / Payer (Ef fective 2023-Present) Name:ROWAN MULTANI Relation to Subscriber:Self Name:Rowan Multani Payer ID:[id number] Group ID:[id number] Type:Not on file Address: [address] [place] [address] Care Teams Automobile Brakes Bonder Relationship Specialty Start Date End Date Betty Nugent MD [address] [place] [address] PCP - General Internal Medicine 01/10/18
--- OUTSIDE RECORDS SUMMARY | 2024-12-21 12:18 | XMS_ITS | Encounter Summary ---
Author Organization [facility] Address [address] [place] [phone] Phone Care Team Providers Care Chief Green Officer Name Role Phone EmilyAlyssa hutchinson Primary Care Provider Unava ilable Encounter Details Date Type Department Care Team (Late st Contact Info) Description 09/23/2024 TCM in Dialysis Clinic [facility] [address] [address] Placido Carver MD [address] [address] Social History Tobacco Use Types [...] 09/23/2024 The patient was seen for a mdvb-zg-wobb visit as part of Transitional Care Management services. Attending Rope Cleaner: PLACIDO CARVER MD Dialysis Location: [facility] Schedule: Shift: 2 INTERACTIVE [...] with the patient. VISIT DIAGNOSES CPT Code 15858 - High complexity, seen within 7 days of discharge. N18.6 End stage renal disease Signed by: PLACIDO CARVER MD on 09/23/2024 at 10:14:56 PM Transcribed by: PLACIDO CARVER MD on 09/23/2024 at 10:14:56 PM documented in this encounter Plan of Treatment Not on file documented as of this encounter Visit Diagnoses Not on filedocumented in this encounter Care Teams Chief Green Officer Relationship Specialty Start Date End Date Alyssa Manzano DO [address] [place] [phone] PCP - General Family Medicine 03/02/21 documented as of this encounter
--- OUTSIDE RECORDS SUMMARY | 2024-12-21 12:18 | XMS_ITS | Encounter Summary ---
Author Organization [employer] Address [address] [place] [address] 7t [place] [address] Care Team Providers Care Dish Washer Name Role Phone Carolina Hsu CHANNEL TURNER Primary Care Provider Genevieve Wilson MD Primary Care Pro vider Encounter Details Date Type Department Care Team (Late Contact Info) Description 09/11/2022 Abstract [facility] [address] [place] [address] Carolina Hsu FNP Social History Tobacco Use [...] [facility] [address] [place] [address] Paola Thurston RN 505 [place] [address] 02/11/2025 2:45 PM EST Clinical Support [facility] [address] [place] [address] Paola Thurston RN [address] [place] [address] documented as of this encounter Visit Diagnoses Not on filedocumented in this encounter Care Teams Dish Washer Relationship Specialty Start Date End Date Carolina Hsu FNP PCP - General Family Medicine 01/16/22 10/11/22 Genevieve Gtz MD [address] [place] [id number] PCP - General Internal Medicine 10/12/22 documented as of this encounter
--- OUTSIDE RECORDS SUMMARY | 2024-12-21 12:18 | XMS_ITS | Encounter Summary ---
Author Organization [employer] Address [address] [facility] 7t [place] [address] Care Team Providers Care Railroad Watchman Name Role Phone Genevieve Gtz MD Primary Care Pro vider Reason for Visit * Reason Onset Date Comments Med Refill 10/23/2024 Encounter Details Date Type Department Care Team ([facility] Contact Info) Description 10/23/2024 Telephone [facility] MEDICINE [address] [place] [address] Genevieve Gtz MD 230 [place], [place] [phone] Med Refill Social History Tobacco Use Types [...] from pt retuning call Contact pt at [phone] * Telephone Encounter - Paola Thurston RN - 10/23/2024 10:24 AM EDT Pt requesting refill of Oxycodone 5mg. No show to [facility] appt 08/06/24. Multiple TC to pt to r/s, no answer, no c/b. Also no showed to appt with you 09/26/24. Please advise. * Telephone Encounter - Colten Mullen - 10/23/2024 10:07 AM EDT TC from pt requesting medication refill. Medications needing refill : oxyCODONE (Roxicodone) 5 MG immediate release tablet To be sent to: [facility]/pharmacy #[id number] documented in this encounter Plan of Treatment Upcoming Encounters Date Type Department Care Team (Late st Contact Info) Description 12/31/2024 10:00 AM EST Telemedicine [facility] [address] [place] [address] Paola Thurston RN [address] [place] [address] 02/11/2025 2:45 PM EST Clinical Support [facility] [address] [place] [address] Paola Thurston RN [address] [place] [address] documented as of this encounter Goals Goal [...] documented as of this encounter Care Teams Railroad Watchman Relationship Specialty Start Date End Date Genevieve Gtz MD [address] [place] [address] [phone] PCP - General Internal Medicine 10/12/22 documented as of this encounter
--- OUTSIDE RECORDS SUMMARY | 2024-12-21 12:18 | XMS_ITS | Encounter Summary ---
Author Organization [employer] Address 75 [facility] 7t [place] [address] Care Team Providers Care Encephalographer Name Role Phone Genevieve Gtz MD Primary Care Pro vider Reason for Visit * Reason Onset Date Comments FYI 08/08/2024 Encounter Details Date Type Department Care Team ([facility] Contact Info) Description 08/08/2024 Telephone [facility] MEDICINE 230 [place], [place] [phone] Genevieve Gtz MD [address] [place], [place] [phone] FYI Social History Tobacco Use Types Packs/Day [...] 11:13 AM EDT [facility] referred for [facility] services for wound care.Patient declined services, stating she manages her wound care independently and obtains her own supplies. Helen just wanted FYI to PCP documented in this encounter Plan of Treatment Upcoming Encounters Date Type Department Care Team (Late st Contact Info) Description 12/31/2024 10:00 AM EST Telemedicine [facility] MED [facility] 505 [place] [address] Paola Thurston RN 505 [place] [address] 02/11/2025 2:45 PM EST Clinical Support [facility] [address] [place] [address] Paola Thurston RN 505 [place] [address] documented as of this encounter Goals Goal [...] documented as of this encounter Care Teams Encephalographer Relationship Specialty Start Date End Date Genevieve Gtz MD [address] [place] [address] PCP - General Internal Medicine 10/12/22 documented as of this encounter
--- OUTSIDE RECORDS SUMMARY | 2024-12-21 12:18 | XMS_ITS | Encounter Summary ---
Author Organization [employer] Address [address] [facility] 7t [place] [address] Care Team Providers Care Players Assistant Name Role Phone Carolina Hsu DIRECTOR COMMUNITY CENTER Primary Care Provider Genevieve Wilson MD Primary Care Pro vider Reason for Visit * Reason Onset Date Comments Appointment Request 03/30/2022 Encounter Details Date Type Department Care Team ([facility] st Contact Info) Description 03/30/2022 Telephone [facility] MEDICINE [address] [place] [address] [phone] Carolina Hsu FNP Appointment Request Social History [...] EST TC to pt, [facility] for todays COMMUNITY SUPPORT SPECIALIST Renewal appt. Pt stated she is currently admitted to [facility], she statedshe has fluid in her lungs and she's a mess. Wished patient well and told her I would forward this information to her PCP. Requested she call back to reschedule COMMUNITY SUPPORT SPECIALIST appt when she's feeling better. * Telephone Encounter - Stephen Davison - 03/30/2022 10:41 AM EST documented in this encounter Plan of Treatment Upcoming Encounters Date Type Department Care Team (Late st Contact Info) Description 12/31/2024 10:00 AM EST Telemedicine [facility] MED [facility]EDS 505 [place] [address] Paola Thurston RN 505 [place] [address] 02/11/2025 2:45 PM EST Clinical Support [facility] 505 [place] [address] Paola Thurston RN [address] [place] [address] documented as of this encounter Visit Diagnoses Not on filedocumented in this encounter Care Teams Players Assistant Relationship Specialty Start Date End Date Carolina Hsu FNP PCP - General Family Medicine 01/16/22 10/11/22 Genevieve Gtz MD [address] [place] [id number] PCP - General Internal Medicine 10/12/22 documented as of this encounter
--- OUTSIDE RECORDS SUMMARY | 2024-12-21 12:18 | XMS_ITS | Encounter Summary ---
Author Organization [employer] Address [address] [place] [address] 7t [place] [address] Care Team Providers Care Roller Billet Mill Name Role Phone Carolina Hsu Primary Care Provider Genevieve Wilson MD Primary Care Pro vider Reason for Visit * Reason Onset Date Comments Med Refill 07/28/2022 Encounter Details Date Type Department Care Team ([facility] st Contact Info) Description 07/28/2022 Telephone [facility] MEDICINE [address] [place] [address] [phone] Carolina Hsu FNP Med Refill Social History [...] [facility] 505 [place] [address] Paola Thurston RN 505 [place] [address] 02/11/2025 2:45 PM EST Clinical Support [facility] [address] [place] [address] Paola Thurston RN 505 [place] [address] documented as of this encounter Visit Diagnoses Diagnosis Acute on chronic heart failure, unspecified heart failure type (HCC)- Primary Benign essential hypertension Essential hypertension, benign documented in this encounter Care Teams Roller Billet Mill Relationship Specialty Start Date End Date Carolina Hsu FNP PCP - General Family Medicine 01/16/22 10/11/22 Genevieve Gtz MD [address] [place] [address] [phone] PCP - General Internal Medicine 10/12/22 documented as of this encounter
--- OUTSIDE RECORDS SUMMARY | 2024-12-21 12:18 | XMS_ITS | Encounter Summary ---
Author Organization [employer] Address [address] [facility] 7t [place] [address] Care Team Providers Care Front Office Medical Assistant Name Role Phone Genevieve Gtz MD Primary Care Pro vider Encounter Details Date Type Department Care Team (Late st Contact Info) Description 01/21/2024 Telephone [facility] MEDICINE [address] [place], [place] [phone] Genevieve Gtz MD [address] [place], [place] [phone] Social History Tobacco Use Types Packs/Day Years [...] Oxycodone 5mg , pt requests a callback [phone] documented in this encounter Plan of Treatment Upcoming Encounters Date Type Department Care Team (Late st Contact Info) Description 12/31/2024 10:00 AM EST Telemedicine [facility] 505 [place] [address] Paola Thurston RN 505 [place] [address] 02/11/2025 2:45 PM EST Clinical Support [facility] [address] [place] [address] Paola Thurston RN [address] [place] [address] documented as of this encounter Goals Goal [...] documented as of this encounter Care Teams Front Office Medical Assistant Relationship Specialty Start Date End Date Genevieve Gtz MD [address] [place] [phone] PCP - General Internal Medicine 10/12/22 documented as of this encounter
--- OUTSIDE RECORDS SUMMARY | 2024-12-21 12:19 | XMS_ITS | Encounter Summary ---
Author Organization [facility] Address [address] [facility] [address] [place] [phone] Phone Care Team Providers Care Lease Out Worker Name Role Phone Genevieve Gtz MD Primary Care Pro vider Encounter Details Date Type Department Care Team ([facility] Contact Info) Description 12/19/2024 Home Care Visit [facility] [address] [place] [phone] Angela Foster RN [address] [place], [place] [phone] [email or web address] CASE COMMUNICATION Social History Tobacco Use Types [...] Upcoming Encounters Date Type Department Care Team ([facility] Contact Info) Description 12/21/2024 12:30 PM EDT Appointment [facility] [address] [place] [phone] Freida Mohan, KIRIT [address] [place] [address] [email or web address] documented as of this encounter Visit Diagnoses Not on filedocumented in this encounter Care Teams Lease Out Worker Relationship Specialty Start Date End Date Genevieve Gtz MD [address] [place] [phone] PCP - General Internal Medicine 11/06/24 documented as of this encounter Additional Source Comments The information contained in this document represents components of the legal health record. It is not the complete legal health record.[facility]
--- OUTSIDE RECORDS SUMMARY | 2024-12-21 12:19 | XMS_ITS | Encounter Summary ---
Author Organization [facility] Address [address] [place] [phone] Phone Care Team Providers Care Printing Machine Operator Name Role Phone EmilyAlyssa hutchinson Primary Care Provider Unava ilable Encounter Details Date Type Department Care Team (Late st Contact Info) Description 08/12/2024 TCM in Dialysis Clinic [facility] [address] [phone] Placido Carver MD [address] [phone] Social History Tobacco Use Types [...] 08/12/2024 The patient was seen for a [id number] visit as part of Transitional Care Management services. Attending Drug Abuse Program Coordinator: PLACIDO CARVER MD Dialysis Location: [facility] Schedule: Shift: 2 INTERACTIVE [...] follow-up appointments noted. VISIT DIAGNOSES CPT Code 24006 - High complexity, seen within 7 days of discharge. N18.6 End stage renal disease Signed by: PLACIDO CARVER MD on 08/12/2024 at 01:16:47 PM Transcribed by: PLACIDO CARVER MD on 08/12/2024 at 01:16:47 PM documented in this encounter Plan of Treatment Not on file documented as of this encounter Visit Diagnoses Not on filedocumented in this encounter Care Teams Printing Machine Operator Relationship Specialty Start Date End Date Alyssa Manzano DO [address] [place] [address] PCP - General Family Medicine 03/02/21 documented as of this encounter
--- OUTSIDE RECORDS SUMMARY | 2024-12-21 12:19 | XMS_ITS | Clinical Summary ---
Author Organization [facility] Address [address] [address] Phone Care Team Providers Care Animal Sitter Name Role Phone Katlyn Manzanofer Primary Care [...] 12/04/2024 Treatment [facility] [address] [address] Ed Carver MD End stage renal disease; Dependence on renal dialysis 11/25/2024 Treatment [facility] [address] [address] Ed Carver MD End stage renal disease; Dependence on renal dialysis 11/22/2024 [facility] in Dialysis Clinic [facility] [address] [address] Ed Carver MD 11/22/2024 Treatment [facility] [address] [address] Ed Carver MD End stage renal disease; Dependence on renal dialysis 10/25/2024 Treatment [facility] [address] [phone] Ed Carver MD End stage renal disease; Dependence on renal dialysis 10/21/2024 Treatment [facility] [address] [address] Ed Carver MD End stage renal disease; Dependence on renal dialysis 10/14/2024 Treatment [facility] [address] [phone] Ed Carver MD End stage renal disease; Dependence on renal dialysis 10/09/2024 Treatment [facility] [address] [address] Ed Carver MD End stage renal disease; Dependence on renal dialysis 10/02/2024 Orders Only [facility] [address] [address] Ed Carver MD 09/25/2024 [facility] [address] [address] Ed Carver MD End stage renal disease; Dependence on renal dialysis 09/23/2024 [facility] in Dialysis Clinic [facility] [address] [address] Ed Carver MD 09/23/2024 Treatment [facility] [address] [address] Ed Carver MD End stage renal disease; [...] EDT HEMOGLOBIN Routine 09/25/2024 3:00 AM EDT from Last 3 Months Results * (ABNORMAL) Hemoglobin (12/18/2024 3:00 AM EDT) Only the most recent of6 resultswithin the time period is included. Hgb 9.5(L) 11.2 - 15.7 g/dL [facility] Hemoglobin x 3 28.5(L) 33.6 - 47.1 g/dL [facility] 12/18/2024 3:00 AM EDT 12/19/2024 12:35 PM EDT us Ed Carver MD LAB BLOOD ORDERABLES Final Result [facility] [address] [place] [address] * LIH (11/27/2024 3:00 AM EDT) Only the most recent of5 resultswithin the time period is included. Lipemia Normal Normal [facility] Icterus Normal Normal [facility] Hemolysis Normal Normal [facility] 11/27/2024 3:00 AM EDT 11/28/2024 12:17 PM EDT Ed Carver MD LAB HISTORICA [id number] RESULTS Final Result Performing Organization Address City/[facility]/ZIP Co de Phone Number [facility] [address] [place] [address] * (ABNORMAL) Kt/V Natural Log, URR (11/27/2024 3:00 AM EDT) Only the most recent of4 resultswithin the time period is included. Pathologist [facility] Treatment Time 183 min [facility] Pre-Weight, lb [...] 3:00 AM EDT 11/28/2024 12:13 PM EDT Ed Carver MD LAB HISTORICA [id number] RESULTS Final Result Performing Organization Address City/[facility]/ZIP Co de Phone Number [facility] [address] [place] [address] * (ABNORMAL) Calcium Phosphorus Product, Adjusted (11/27/2024 [...] EDT us Ed Carver MD LAB HISTORICA [id number] RESULTS Final Result Performing Organization Address [facility] Co de Phone Number [facility] [address] [place] [address] * Hepatitis B Surface Ag w/Reflex Confirmation (11/27/2024 3:00 AM EDT) Only the most recent of3 resultswithin the time period is included. Pathologist [facility] Hep B Surface Antigen Negative Negative [facility] 11/27/2024 3:00 AM EDT 11/28/2024 12:17 PM EDT us Ed Carver MD LAB BLOOD ORDERABLES Final Result Performing Organization Address City/[facility] Co de Phone Number [facility] [address] [place] [address] * BUN/CREATININE RATIO (11/27/2024 3:00 AM EDT) Only the most recent of3 resultswithin the time period is included. Pathologist [facility] BUN/Creatinine Ratio 7.5 <=23.0 [facility] 11/27/2024 3:00 AM EDT 11/28/2024 12:17 PM EDT us Ed Carver MD LAB HISTORICA [id number] RESULTS Final Result Performing Organization Address City/[facility]/ZIP Co de Phone Number [facility] [address] [place] [address] * (ABNORMAL) TSAT (11/27/2024 3:00 AM EDT) Only the most recent of3 resultswithin the time period is included. [facility] Iron 51 50 - 170 ug/dL [facility] Transferrin 158(L) 250 - 380 mg/dL [facility] TIBC 221 211 - 406 ug/dL [facility] Iron Saturation (TSat) 23 22 - 52 % [facility] 11/27/2024 3:00 AM EDT 11/28/2024 12:17 PM EDT Ed Carver MD LAB BLOOD ORDERABLES Final Result Performing Organization Address [facility] Co de Phone Number [facility] [address] [place] [address] * (ABNORMAL) CBC and Differential (11/27/2024 3:00 AM EDT) Only the most recent of3 resultswithin the time period is included. [facility] DIFFERENTIAL MANUAL, 2 Not Indicated [facility] [...] 3:00 AM EDT 11/28/2024 12:24 PM EDT Ed Carver MD LAB BLOOD ORDERABLES Final Result Performing Organization Address [facility] Co de Phone Number [facility] [address] [place] [address] * (ABNORMAL) ALT (11/27/2024 3:00 AM EDT) Only the most recent of3 resultswithin the time period is included. ALT (SGPT) <7(L) 10 - 49 U/L [facility] 11/27/2024 3:00 AM EDT 11/28/2024 12:17 PM EDT Ed Carver MD LAB BLOOD ORDERABLES Final Result Performing Organization Address [facility] de Phone Number [facility] [address] [place] [address] * AST (11/27/2024 3:00 AM EDT) Only the most recent of3 resultswithin the time period is included. AST (SGOT) 14 <34 U/L [facility] 11/27/2024 3:00 AM EDT 11/28/2024 12:17 PM EDT Ed Carver MD LAB BLOOD ORDERABLES Final Result Performing Organization Address [facility] de Phone Number [facility] [address] [place] [address] * Protein, total (11/27/2024 3:00 AM EDT) Only the most recent of3 resultswithin the time period is included. Total Protein 6.9 6.4 - 8.9 g/dL [facility] 11/27/2024 3:00 AM EDT 11/28/2024 12:17 PM EDT Ed Carver MD LAB BLOOD ORDERABLES Final Result Performing Organization Address [facility] Co de Phone Number [facility] [address] [place] [address] * (ABNORMAL) Alkaline phosphatase (11/27/2024 3:00 AM EDT) Only the most recent of3 resultswithin the time period is included. Pathologist [facility] Alkaline Phosphatase 122(H) 46 - 116 U/L [facility] 11/27/2024 3:00 AM EDT 11/28/2024 12:17 PM EDT Ed Carver MD LAB BLOOD ORDERABLES Final Result Performing Organization Address [facility] de Phone Number [facility] [address] [place] [address] * PTH, Intact (11/27/2024 3:00 AM EDT) Pathologist [facility] PTH, Intact 550 160 - 721 pg/mL [facility] Comment: Suggested (KDIGO) ESRD maintenance range is two to nine times the upper normal limit (80.1 pg/mL) for the laboratory. 11/27/2024 3:00 AM EDT 11/28/2024 12:17 PM EDT Ed Carver MD LAB BLOOD ORDERABLES Final Result Performing Organization Address [facility] de Phone Number [facility] [address] [place] [address] * Magnesium (11/27/2024 3:00 AM EDT) Only the most recent of3 resultswithin the time period is included. Magnesium 2.5 1.9 - 2.7 mg/dL [facility] 11/27/2024 3:00 AM EDT 11/28/2024 12:17 PM EDT us Ed Carver MD LAB BLOOD ORDERABLES Final Result Performing Organization Address City/[facility] Co de Phone Number [facility] [address] [place] [address] * (ABNORMAL) Lactate dehydrogenase (11/27/2024 3:00 AM EDT) Only the most recent of3 resultswithin the time period is included. LDH 260(H) 120 - 246 U/L [facility] 11/27/2024 3:00 AM EDT 11/28/2024 12:17 PM EDT us Ed Carver MD LAB BLOOD ORDERABLES Final Result Performing Organization Address [facility] de Phone Number [facility] [address] [place] [address] * (ABNORMAL) Hemoglobin A1c (11/27/2024 3:00 AM EDT) Pathologist [facility] Hemoglobin A1C 5.7(H) <5.7 % [facility] Comment: Methodology: Enzymatic Normal: <5.7% Prediabetes: 5.7-6.4% Diabetes: >6.4% Diabetic Glucose Control Evaluation: Therapeutic action suggested at >8.0% ADA recommends a glycemic goal of <7.0% 11/27/2024 3:00 AM EDT 11/28/2024 12:24 PM EDT us Ed Carver MD LAB BLOOD ORDERABLES Final Result Performing Organization Address [facility] Co de Phone Number [facility] [address] [place] [address] * (ABNORMAL) Glucose, random (11/27/2024 3:00 AM EDT) Only the most recent of3 resultswithin the time period is included. Glucose 217(H) 70 - 99 mg/dL [facility] Comment: ADA guidelines outline the following fasting glucose ranges: Normal: <100 Prediabetes: 100-125 Diabetes: >125 11/27/2024 3:00 AM EDT 11/28/2024 12:17 PM EDT Ed Carver MD LAB BLOOD ORDERABLES Final Result Performing Organization Address City/[facility] Co de Phone Number [facility] [address] [place] [address] * Ferritin (11/27/2024 3:00 AM EDT) Only the most recent of3 resultswithin the time period is included. Ferritin 166 10 - 291 ng/mL [facility] 11/27/2024 3:00 AM EDT 11/28/2024 12:17 PM EDT Ed Carver MD LAB BLOOD ORDERABLES Final Result Performing Organization Address [facility] de Phone Number [facility] [address] [place] [address] * (ABNORMAL) Creatinine, serum (11/27/2024 3:00 AM EDT) Only the most recent of3 resultswithin the time period is included. Creatinine 10.25(H) 0.55 - 1.02 mg/dL [facility] 11/27/2024 3:00 AM EDT 11/28/2024 12:17 PM EDT Ed Carver MD LAB BLOOD ORDERABLES Final Result Performing Organization Address [facility] de Phone Number [facility] [address] [place] [address] * Bilirubin, total (11/27/2024 3:00 AM EDT) Only the most recent of3 resultswithin the time period is included. Total Bilirubin 0.3 0.3 - 1.2 mg/dL [facility] 11/27/2024 3:00 AM EDT 11/28/2024 12:17 PM EDT us Ed Carver MD LAB BLOOD ORDERABLES Final Result Performing Organization Address [facility] Co de Phone Number [facility] [address] [place] [address] * (ABNORMAL) Lipid panel (11/27/2024 3:00 AM [...] ORDERABLES Final Result Performing Organization Address [facility] de Phone Number [facility] [address] [place] [address] * (ABNORMAL) Electrolyte panel (11/27/2024 3:00 AM [...] ORDERABLES Final Result [facility] [address] [place] [address] * (ABNORMAL) Phosphorus (10/21/2024 3:00 AM EDT) Phosphorus, Serum 8.8(H) 2.5 - 5.0 mg/dL [facility] 10/21/2024 3:00 AM EDT 10/22/2024 1:27 PM EDT Ed Carver MD LAB BLOOD ORDERABLES Final Result Performing Organization Address City/[facility] Co de Phone Number [facility] [address] [place] [address] from Last 3 Months Insurance [facility] ([id number]) JOVON SOLOMON [id number] [facility] ([id number]) [facility] ([id number]) Care Teams Animal Sitter Relationship Specialty Start Date End Date Alyssa Manzano DO [address] [place] [address] PCP - General Family Medicine 03/02/21
--- OUTSIDE RECORDS SUMMARY | 2024-12-21 12:19 | XMS_ITS | Encounter Summary ---
Author Organization [employer] Address [address] [facility] 7[address] [place] [address] Care Team Providers Care Hide Stretcher Hand Name Role Phone Genevieve Gtz MD Primary Care Pro vider Reason for Visit * Reason Onset Date Comments Medication Question 11/11/2024 Encounter Details Date Type Department Care Team ([facility] Contact Info) Description 11/11/2024 Telephone [facility] [address] [place], [place] [phone] Genevieve Gtz MD [address] [place], [place] [phone] Medication Question Social History Tobacco Use Types [...] MG immediate release tablet Contact pt at [phone] documented in this encounter Plan of Treatment Upcoming Encounters Date Type Department Care Team (Late st Contact Info) Description 12/31/2024 10:00 AM EST Telemedicine [facility] [address] [place] [address] Paola Thurston RN [address] [place] [address] 02/11/2025 2:45 PM EST Clinical Support [facility] [address] [place] [address] Paola Thurston RN [address] [place] [address] documented as of this encounter Goals Goal [...] documented as of this encounter Care Teams Hide Stretcher Hand Relationship Specialty Start Date End Date Genevieve Gtz MD [address] [place] [address] PCP - General Internal Medicine 10/12/22 documented as of this encounter
--- OUTSIDE RECORDS SUMMARY | 2024-12-21 12:19 | XMS_ITS | Encounter Summary ---
Author Organization [facility] Address [address] [place] [phone] Phone Care Team Providers Care Tip Mender Name Role Phone EmilyAlyssa hutchinson Primary Care Provider Unava ilable Encounter Details Date Type Department Care Team (Late st Contact Info) Description 07/08/2024 TCM in Dialysis Clinic [facility] [address] [address] Placido Carver MD [address] [address] Social History Tobacco Use Types [...] 07/08/2024 The patient was seen for a [id number]-[id number]-hadq visit as part of Transitional Care Management services. Attending Computer Bookkeeper: PLACIDO CARVER MD Dialysis Location: [facility] Schedule: Shift: 2 INTERACTIVE [...] - No ulcers. VISIT DIAGNOSES CPT Code 36146 - High complexity, seen within 7 days of discharge. N18.6 End stage renal disease Signed by: PLACIDO CARVER MD on 07/26/2024 at 02:13:33 PM Transcribed by: PLACIDO CARVER MD on 07/26/2024 at 02:13:33 PM documented in this encounter Plan of Treatment Not on file documented as of this encounter Visit Diagnoses Not on filedocumented in this encounter Care Teams Tip Mender Relationship Specialty Start Date End Date Alyssa Manzano DO [address] [place] [address] PCP - General Family Medicine 03/02/21 documented as of this encounter
--- OUTSIDE RECORDS SUMMARY | 2024-12-21 12:19 | XMS_ITS | Clinical Summary ---
Author Organization [facility] Address [address] [place] [address] Care Team Providers Care Stock Trader Name Role Phone Unavailable Primary Care Provider [...] 0.79 S/CO ratio 01/10/2022 10:39 AM EST [employer] Hepatitis C Antibody Interpretation Nonreactive Nonreactive 01/10/2022 10:39 AM EST [employer] Blood specimen (specimen) (Plasma/Serum) 01/09/2022 8:34 AM EST 01/09/2022 9:21 AM EST us Jaziel B Post MD LAB BLOOD ORDERABLES Final Resu lt HOSPITAL LAB [employer] [address] [place] [address] * HIV 1/2 Ag/Ab CMIA Reflex to Confirmation (01/09/2022 8:34 AM EST) HIV 1/2 Ag/Ab CMIA Nonreactive Nonreactive 01/10/2022 10:39 AM EST [employer] Comment: Results show no evidence of infection [...] BLOOD ORDERABLES Final Resu lt HOSPITAL [facility] [employer] [facility] [address] [place] [address] from Last 3 Months or Most Recently Relevant to Health Maintenance Insurance [facility] Member Subscriber Plan / Payer ( fective 2022-Present) Name:Shereen Taylor Relation to Subscriber:Self Name:Shereen Taylor Payer ID:Not on file Group ID:Not on file Type:Not on file Address: [address] [id number] MISC MGD MEDICARE OUT OF NETWORK Advance Directives * Full Code (Latest Code Status on File) Date Activated Date Inactivated Comments 01/06/2022 5:00 AM Question Answer Comments Decision Thoroughly Discussed with: Unable to Ilda musa
--- OUTSIDE RECORDS SUMMARY | 2024-12-21 12:19 | XMS_ITS | Clinical Summary ---
Author Organization [facility] Address [address] [place] [address] Phone Care Team Providers Care Support Representative Name Role Phone Genevieve Gtz MD Primary Care Pro vider Encounters Date Type Department Care Team Description 12/20/2024 Home Care Visit [facility] [address] [place] [phone] Becca Saenz, KIRIT CASE COMMUNICATION 12/19/2024 Home Care Visit [facility] [address] [place] [address] Angela Foster RN CASE COMMUNICATION 12/15/2024 Orders Only [facility] [address] [place] [address] Homehealth, Kirill ProviderMD 11/16/2024 Home Care Visit [facility] [address] [place] [address] Becca Saenz, KIRIT NON ADMIT HOME HEALTH VISIT 11/14/2024 Home Care Visit [facility] [address] [place] [address] Angela Foster RN CASE COMMUNICATION 11/10/2024 Home Care Visit [facility] [address] [place] [address] Angela Foster RN TELEPHONE ENCOUNTER 11/09/2024 Home Care Visit [facility] [address] [place], [place] [phone] Becca Saenz, KIRIT CASE COMMUNICATION 11/04/2024 Orders Only [facility] [address] [place] [address] Homehealth, Interface ProviderMD from Last 3 Months [...] Care Team (Late st Contact Info) Description 12/21/2024 12:30 PM EDT Appointment [facility] [address] [place] [address] Freida Mohan RN [address] [place] [phone] [email or web address] Medical Devices Not on file Insurance , [address] [address] [facility] ONE CARE MEDICARE REPLACEMENT JOVON SOLOMON [id number] CARE MEDICARE REPLACEMENT MEDICARE REPLACEMENT CARE MEDICARE [place] [address] [place] [address] CARE MEDICARE REPLACEMENT [facility] ONE CARE MEDICARE REPLACEMENT Care Teams Support Representative Relationship Specialty Start Date End Date Genevieve Gtz MD [address] [place] [address] PCP - General Internal Medicine 11/06/24 Additional Source Comments The information contained in this document represents components of the legal health record. It is not the complete legal health record.[facility]
--- NOTE | 2024-12-21 12:21 | ED_ITS ---
HPI - Chest Pain General Chief Complaint: Chest Pain Stated Complaint: CHEST PAIN Time Seen by Provider: 12/21/24 12:13 History of Present Illness ED Provider: sofia HPI narrative: 34-year-old female end-stage renal miss dialysis yesterday. Patient reports pain to the right side of the face neck and upper chest area without fall or trauma. No acute or focal neuro deficits. Feels discomfort bilateral feet as well. Missed dialysis unable to provide reasoning why. Denies cough fever chills. No vomiting some lower abdominal discomfort as well Related Data Home Medications ?Medication ?Instructions ?Recorded ?Confirmed albuterol sulfate 90 mcg/actuation 2 puff inhalation Q 6H PRN wheezing 01/15/24 12/10/24 aerosol inhaler (Ventolin HFA) lidocaine 5 % topical patch 1 patch topical DAILY PRN Pain 01/15/24 12/10/24 nitroglycerin 0.4 mg sublingual 0.4 mg sublingual D IRECTED PRN 01/15/24 12/10/24 tablet Angina acetaminophen 325 mg tablet 650 mg PO Q4H PRN mild jamar n 03/11/24 12/10/24 calcium carbonate (Tums) 200 mg PO TIDWM PRN Acid Ref lux 07/03/24 12/10/24 Previous Rx's ?Medication ?Instructions ?Recorded carvedilol 12.5 mg tablet 12.5 mg PO BID 90 days #180 tabs 12/16/23 hydralazine 50 mg tablet 50 mg PO TID 90 days #270 ta bs 12/16/23 blood sugar diagnostic (FreeStyle #100 ea 08/26/24 Lite Strips) blood-glucose meter (FreeStyle #1 ea 08/26/24 Lite Meter kit) lancets 28 gauge (FreeStyle #100 ea 08/26/24 Lancets) pen needle, diabetic 32 gauge x #100 ea 08/26/24 1/ oxycodone 5 mg tablet 5 mg PO Q8H PRN pain #15 tab s 09/10/24 fidaxomicin 200 mg tablet (Dificid) 200 mg PO Q12H #22 tabs 11/04/24 doxycycline hyclate 100 mg tablet 100 mg PO BID #28 ta bs 12/15/24 hydromorphone 4 mg tablet 4 mg PO Q6H PRN pain #20 tab s 12/19/24 (Dilaudid) metoclopramide HCl 10 mg tablet 10 mg PO Q6H PRN nause a and 12/19/24 (Reglan) vomiting #14 tabs Allergies Allergy/AdvReac Type Severity Reaction Status Date / Time gabapentin Allergy Severe Facial Verified 12/21/24 12:02 Swelling tramadol Allergy Severe Facial Verified 12/21/24 12:02 Swelling azithromycin (From Zithromax) Allergy Intermediate Hives Verified 12/21/24 12:02 morphine (MORPHINE) Allergy Intermediate Itching Verified 12/21/24 12:02 [facility] Past Medical History Medical History Multiple sclerosis Cerebral infarction Hyperkalemia ESRD on dialysis Hypoxia End stage renal disease on dialysis Chronic ulcer of right foot due to diabetes mellitus Chronic ulcer of left foot due to diabetes mellitus DM foot ulcer ESRD on hemodialysis Hypotonic neurogenic bladder Diabetic polyneuropathy Hypertensive emergency Decompensated heart failure Renal failure Hypertension, uncontrolled Medical non-compliance Pericarditis Unspecified hypertension, condition or complication Metabolic acidosis Gastroparesis End stage chronic kidney disease Chronic kidney disease Anemia Plantar ulcer of left foot MDD (major depressive disorder) CKD (chronic kidney disease) Hypertension Vomiting Chronic pain Non-compliance with renal dialysis End-stage renal disease (ESRD) Diabetic foot ulcer associated with type 2 diabetes mellitus Cardiomyopathy HFrEF (heart failure with reduced ejection fraction) delivery delivered Anemia in chronic kidney disease (CKD) CKD (chronic kidney disease) Abnormal finding on echocardiogram Elevated troponin Acute worsening of stage 3 chronic kidney disease Generalized edema Sepsis Cellulitis Pleural effusion Atypical chest pain Bone infection PAD (peripheral artery disease) Cellulitis and abscess of foot Osteomyelitis Asthma Depression with anxiety Diabetic retinopathy Blind right eye Diabetes Back pain Surgical History Tubal ligation status Previous section Hx laparoscopic cholecystectomy Hx of surgical procedure (~09/11/23) 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 Family History Family History Mother Coronary artery disease Myocardial infarction Stroke Diabetes mellitus Father Myocardial infarction Social History Social History Household Members: Family and Caregiver Household Members Other:: sister, brother, [id number] Housing: Apartment Housing Other:: Apartment, 1st floor Are you a primary personal carer to a significant other at home: No Do you presently have visiting nurse or other home services: No Alcohol intake: never Comment: Intermittently refuses Patient Tobacco Use Status: Never used Tobacco e-Cigarette/Vaping Use: Never Used Second Hand Smoke Exposure: No Advance Directives Date on File: 08/28/23 service: No Current occupational status: unemployed and disabled Gender identity: Female Physical Exam 2 Exam: Exam: EXAM: Gen: Alert, awake, well appearing, well hydrated. Appears uncomfortable not grossly fluid overloaded. Moaning in Head: Atraumatic Eyes: Anicteric, Normal conjunctiva. ENT: Moist mucosa, no pallor. ? Neck: Supple. Skin: ?No observable rash or bruising on exposed or examined skin Respiratory: Breathing comfortably, No distress.Clear to auscultation bilaterally, symmetric chest expansion, No wheeze, rales, ronchi. Cardiovascular: Regular rate and rhythm. No murmurs or rub. Well perfused periphery, warm extremities. No edema. ? Abdominal: No focal tenderness. Soft, no objective distension. No palpable masses or obvious organomegaly. ?No guarding, no rebound tenderness or other peritoneal findings. : No flank tenderness. Neuro: Alert. Gross movement of all extremities intact. ? Psych: Calm. Cooperative. MSK: No grossly visible deformity. Vital signs: See flowsheet Vital Signs: Vital Signs: Last Vital Signs Temp 98.1 F 12/21/24 11:59 Pulse 88 12/21/24 11:59 Resp 12 12/21/24 13:40 BP 200/107 H 12/21/24 11:57 Pulse Ox 100 12/21/24 11:59 O2 Del Method Room Air 12/21/24 11:59 BMI result Body Mass Index 35.6 Medications Administered Discontinued Medications Generic Name Dose Route Start Last Admin Trade Name Freq PRN Reason Stop Dose Admin Dextrose 25 gm 12/21/24 12:48 12/21/24 13:41 Dextrose 50 % 25 Gm/50 Ml Syringe IVPUSH 12/21/24 12:49 25 gm ONCE ONE Administration Hydromorphone HCl 0.25 mg 12/21/24 13:28 12/21/24 13:40 Hydromorphone Hcl 0.5 Mg/0.5 Ml Syringe IVPUSH 12/21/24 13:29 0.25 mg ONCE ONE Administration Protocol Calcium Gluconate 1 gm in 50 mls @ 50 mls/hr 12/21/24 12:48 12/21/24 15:54 Calcium Gluconate IV 12/21/24 13:47 Infused ONCE ONE Infusion Insulin Human Regular 5 unit 12/21/24 12:48 12/21/24 13:51 Insulin Regular, Human 100 Unit/Ml 10 Ml Vial IVPUSH 12/21/24 12:49 5 unit ONCE ONE Administration Morphine Sulfate 2 mg 12/21/24 12:56 12/21/24 13:41 Morphine Sulfate 4 Mg/Ml Cartridge IVPUSH 12/21/24 12:57 Not Given ONCE ONE Protocol Sodium Zirconium Cyclosilicate 10 gm 12/21/24 12:48 12/21/24 13:41 Sodium Zirconium Cyclosilicate 10 Gm Powd.Pack PO 12/21/24 12:49 10 gm ONCE ONE Administration Sodium Zirconium Cyclosilicate 10 gm 12/21/24 15:35 12/21/24 15:54 Sodium Zirconium Cyclosilicate 10 Gm Powd.Pack PO 12/21/24 15:36 10 gm ONCE ONE Administration Procedures Procedure Narrative Procedure Narrative: Ultrasound Guided Peripheral Intravenous Catheter Placement Indication: Intravenous Access Location: Right ??Vascular Location of Catheter Tip: Basilic Provider: Self I was approached by nursing staff and informed that multiple unsuccessful attempts had been made to establish IV access in the patient. The patients arm was surveyed with the ultrasound for verification of vessel collapsibility, patency, depth and caliber, as well as identification of nearby structures. The target area was prepped with chlorhexidine. A tourniquet was placed proximally on the extremity. Under real-time ultrasound guidance, an 20 gauge 1.5 in intravenous catheter ? was advanced into the target vein. Dark blood was visualized in the flash chamber. The catheter was easily advanced into the vein. The catheter was evacuated of air and flushed with sterile saline. The catheter was secured in place with a tegaderm. The patient tolerated the procedure well and there were no complications. Estimated Blood Loss: 1mL Total Time for Procedure: 5min Images Stored CPT: 22123; 15918 Medical Decision Making Medical Decision Making MDM Narrative: Medical Decision Makin-year-old female with end-stage renal disease among other comorbid medical conditions with atraumatic right facial upper chest neck and abdominal pain unclear cause. Primarily my concern upon seeing her was that she had missed dialysis and had peaked T-waves on her EKG. We discussed the case with Nephrology her outside nephrology group Dr. Gama after the chemistry returned with a potassium of 6.2. They recommended Lokelma including a 2nd dose and other temporizing medications including insulin, dextrose, calcium albuterol which I gave. No clear cause on imaging of the patient's right-sided symptoms. There was no focal deficits. Patient is hemodynamically stable and afebrile. Outside group has arranged for cyber threat analyst Sunday dialysis Preliminary Favored Differential Diagnosis: Hyperkalemia, neuropathic pain, ICH, pneumonia pneumothorax, bowel obstruction enteritis colitis among additional considered etiologies Testing Interpreted Independently: ?See below for details Radiology or Lab testing Results Reviewed: ?See below for details Consults: ?See below for details Independent Historians/External Chart Reviews: ?See below for details Social Determinants of Health Impacting MDM/Planning: ?See below for details Lab Data MDM Lab Attestation statement: I reviewed the patient's lab results. 12/21/24 12:49 12/21/24 12:49 Labs: Lab Results 12/21/24 Range/Units 12:49 WBC 5.5 (4.8-10.8) X10*3/uL RBC 2.96 L (4.20-5.50) X10*6/uL Hgb 9.0 L (12.0-16.0) g/dl Hct 27.8 L (37.0-47.0) % MCV 93.9 (80.0-98.0) fL MCH 30.4 (27.0-33.0) pg MCHC 32.4 (31.0-35.0) g/dl RDW 14.0 (11.0-16.0) % Plt Count 93 L (160-400) X10*3/uL MPV 11.1 (9.4-12.3) fL Immature Gran % (Auto) 0.2 (0.0-0.4) % Neut % (Auto) 70.8 (45-73) % Lymph % (Auto) 12.7 L (20-40) % [place] % (Auto) 11.1 H (2-11) % Eos % (Auto) 4.7 H (0-4) % Baso % (Auto) 0.5 (0-2) % Lymph # (Auto) 0.7 L (1.2-4.9) X10*3/uL [place] # (Auto) 0.6 (0.1-1.2) X10*3/uL Eos # (Auto) 0.3 (0.0-0.4) X10*3/uL Baso # (Auto) 0.0 (0.0-0.2) X10*3/uL Abs Immat Gran (auto) 0.01 (0.00-0.03) X10*3/uL Absolute Neuts (auto) 3.9 (2.0-8.3) x10*3/uL Absolute Nucleated RBC 0.000 (0.0-0.012) X10*3/uL Nucleated RBC % (auto) 0.0 (0.0-0.2) /100WBC Sodium 137 (135-145) mmol/L Potassium 6.2 H* (3.3-5.1) mmol/L Chloride 102 (96-108) mmol/L Carbon Dioxide 19 L (22-29) mmol/L Anion Gap 22 H (12-20) BUN 85 H (9-16) mg/dL Creatinine 11.49 H* (0.5-1.4) mg/dL Estim Creat Clear Calc 7.7 Estimated GFR 4 Random Glucose 76 (60-115) mg/dL Calcium 8.1 L D (8.4-10.2) mg/dL Magnesium 2.5 (1.6-2.6) mg/dL Total Bilirubin 0.8 (0.0-1.0) mg/dL AST 30 (5-31) U/L ALT 17 (0-31) U/L Alkaline Phosphatase 146 H (39-117) U/L Total Protein 7.6 (6.5-8.0) g/dL Albumin 4.0 (3.5-5.0) g/dL TSH 1.18 (0.32-4.0) uIU/mL Discharge Plan Discharge Clinical Impression: Hyperkalemia Patient Disposition: Home, Self-Care Instructions: Hyperkalemia (ED) Additional Instructions: You came in the emergency department with facial chest and abdominal pain. CT imaging did not show any acute pathology. We did a blood tests which showed elevated potassium level 6.2. We consulted with your nephrology group. They recommended medications which we gave you to temporize your hyperkalemia/high potassium. You may expect some mild diarrhea which we will help get out the potassium. You are being scheduled for dialysis 1st thing tomorrow morning so please be attentive to your phone if you do not hear from your dialysis group or dialysis center called them. Prescriptions: No Action carvedilol 12.5 mg Tablet 12.5 mg PO BID 90 Days Qty: 180 0RF Protocol: Hold for SBP/HR < HOLD for SBP < : 90 HOLD for HR < : 60 hydralazine 50 mg Tablet 50 mg PO TID 90 Days Qty: 270 0RF Protocol: Hold for SBP< HOLD for SBP < : 90 acetaminophen 325 mg tablet 650 mg PO Q4H PRN (Reason: mild pain) (DME) FreeStyle Lite Strips Strip Qty: 100 0RF Rx Instructions: Test four times a day or as directed. (DME) blood-glucose meter [FreeStyle Lite Meter] Kit Qty: 1 0RF Rx Instructions: As Directed (DME) pen needle, diabetic 32 gauge x 1/4 needle Qty: 100 0RF Rx Instructions: Use four times a day or as directed. (DME) lancets [FreeStyle Lancets] 28 gauge misc Qty: 100 0RF Rx Instructions: Test four times a day or as directed. oxycodone 5 mg tablet 5 mg PO Q8H PRN (Reason: pain) Qty: 15 0RF Rx Instructions: Partial Fill upon patient request. hydromorphone [Dilaudid] 4 mg tablet 4 mg PO Q6H PRN (Reason: pain) Qty: 20 0RF Rx Instructions: Partial Fill upon patient request. metoclopramide HCl [Reglan] 10 mg tablet 10 mg PO Q6H PRN (Reason: nausea and vomiting) Qty: 14 0RF lidocaine 5 % adhesive patch,medicated 1 patch topical DAILY PRN (Reason: Pain) nitroglycerin 0.4 mg tablet, sublingual 0.4 mg sublingual DIRECTED PRN (Reason: Angina) albuterol sulfate [Ventolin HFA] 90 mcg/actuation HFA aerosol inhaler 2 puff inhalation Q6H PRN (Reason: wheezing) calcium carbonate [Tums] 200 mg calcium (500 mg) Tablet,Chewable 200 mg PO TIDWM PRN (Reason: Acid Reflux) fidaxomicin [Dificid] 200 mg Tablet 200 mg PO Q12H Qty: 22 0RF doxycycline hyclate 100 mg tablet 100 mg PO BID Qty: 28 0RF Discharge Date/Time: 12/21/24 17:11 Print Language: Slovak
[2024-12-21 12:54] LABS: Hematocrit 27.8 % (37.0-47.0); Hemoglobin 9.0 g/dl (12.0-16.0); Imm Gran Abs Auto 0.01 X10*3/uL (0.00-0.03); Imm Gran Pct Auto 0.2 % (0.0-0.4); Lymphocytes Absolute Auto 0.7 X10*3/uL (1.2-4.9); MANUAL DIFF FLAG NO; Mean Corpuscular HGB Conc 32.4 g/dl (31.0-35.0); Mean Corpuscular Hemoglobin 30.4 pg (27.0-33.0); Mean Corpuscular Volume 93.9 fL (80.0-98.0); NRBC Abs Auto 0.000 X10*3/uL (0.0-0.012); NRBC Pct Auto 0.0 /100WBC (0.0-0.2); Red Blood Count 2.96 X10*6/uL (4.20-5.50); White Blood Count 5.5 X10*3/uL (4.8-10.8)
[2024-12-21 12:55] LABS: Platelet Count 93 X10*3/uL (160-400)
[2024-12-21 13:40] VITALS: RESP 12
[2024-12-21] MEDS: Calcium Gluconate/NaCl,Iso-Osm 1 GM/50 ML PLAST..BAG IV (13:41)
--- NOTE | 2024-12-21 15:05 | PC.NURSE ---
Awaiting chemistry results, lab contacted, will reprt back
--- NOTE | 2024-12-21 15:07 | PC.NURSE ---
U/S guided iv infiltrate, provider made aware, will have another RN attempt second line
[2024-12-21 15:29] LABS: Alanine Aminotransferase 17 U/L (0-31); Albumin Level 4.0 g/dL (3.5-5.0); Alkaline Phosphatase 146 U/L (39-117); Anion Gap 22 (12-20); Aspartate Amino Transferase 30 U/L (5-31); Blood Urea Nitrogen 85 mg/dL (9-16); Calcium 8.1 mg/dL (8.4-10.2); Carbon Dioxide 19 mmol/L (22-29); Chloride 102 mmol/L (96-108); Creatinine Clr Calc Pharmacy 7.7; Estimated Glomerular Filt Rate 4; Magnesium 2.5 mg/dL (1.6-2.6); Potassium 6.2 mmol/L (3.3-5.1); Sodium 137 mmol/L (135-145); Total Protein 7.6 g/dL (6.5-8.0)
[2024-12-21 15:40] LABS: Thyroid Stimulating Hormone 1.18 uIU/mL (0.32-4.0)
== END 2024-12-21 17:11 | disposition home or self-care (01) ==
PROVIDERS: Emergency Provider Emergency Medicine; PCP Student in an Organized Health Care Education/Training Program
DX: R07.89 Other chest pain (principal); M54.2 Cervicalgia; E23.2 Diabetes insipidus; E11.22 Type 2 diabetes mellitus with diabetic chronic kidney disease; I13.2 Hypertensive heart and chronic kidney disease with heart failure and with stage 5 chronic kidney disease, or end stage renal disease; I50.9 Heart failure, unspecified; N18.6 End stage renal disease; R94.31 Abnormal electrocardiogram [ECG] [EKG]; R51.9 Headache, unspecified; R10.22 Pelvic and perineal pain left side; Z99.2 Dependence on renal dialysis; Z79.899 Other long term (current) drug therapy
CPT/HCPCS: 36415; 70450; 71045; 71250; 74176; 80053; 83735; 84443; 85025; 93005; 96365; 96366; 96375; 99284; J0613; J1171

== ENCOUNTER → 2024-12-21 12:02 | Outpatient (BNV) | payer OTHER, SELFPAY | PROVIDERS: Emergency Provider Emergency Medicine; PCP Student in an Organized Health Care Education/Training Program; Visit Provider Internal Medicine | DX: I45.10 Unspecified right bundle-branch block (principal) | CPT/HCPCS: 93010 ==

== ENCOUNTER → 2024-12-21 12:15 | Outpatient (BNV) | payer OTHER, SELFPAY | PROVIDERS: Emergency Provider Emergency Medicine; PCP Student in an Organized Health Care Education/Training Program; Visit Provider Radiology Diagnostic Radiology | DX: N32.89 Other specified disorders of bladder (principal); Z03.89 Encounter for observation for other suspected diseases and conditions ruled out; R51.9 Headache, unspecified; R07.9 Chest pain, unspecified | CPT/HCPCS: 70450; 71045; 71250; 74176 ==

== ENCOUNTER 2024-12-22 08:37 | Inpatient (IN) | payer OTHER, SELFPAY ==
[2024-12-22] VITALS (20 sets, daily range): BP systolic 162–219; BP diastolic 84–121; PULSE 80–94; RESP 10–18; TEMP 36.2–36.6; O2SAT 85–100; BMI 35.2
--- NOTE | ~2024-12-22 | CT_ITS ---
EXAMINATION: CT HEAD WITHOUT CONTRAST CLINICAL INFORMATION: Fall with head trauma COMPARISON: None available. TECHNIQUE: Contiguous axial imaging was performed from the skull base to vertex without intravenous administration of contrast. This CT examination was performed using dose optimization techniques as appropriate, variously including the following: *Automated exposure control *Adjustment of mA and/or kV according to patient size (this includes techniques or standardized protocols for targeted exams where dose is matched to indication/reason for exam; i.e. extremities or head) *Use of iterative reconstruction technique FINDINGS: There is no acute ischemic change. There is no intracranial hemorrhage. There is no mass-effect or midline shift. Basal cisterns and ventricles are within normal limits for age/cerebral volume. The right globe is small and distorted with calcification on the posterior wall and hypodensity throughout the lens. There is also thickening of the posterior left globe extending internally 5 mm and 16 mm superior to inferior. There is mucosal thickening in the right maxillary sinus There are no bony abnormalities. CT/CT head/brain wo IV con IMPRESSION: There is an area of thickening in the left posterior retina measuring 5 x 16 mm. Recommend ophthalmic follow-up. 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 Chronic right maxillary sinus mucosal thickening. No acute intracranial abnormality. Electronically signed by: Juan Alberto Guevara MD 12/22/2024 11:05 AM EDT
--- NOTE | ~2024-12-22 | XR_ITS ---
EXAMINATION: XR FOOT, LEFT CLINICAL INFORMATION: r/o osteo/ draining wound COMPARISON: X-ray 12/09/2024 . MRI 12/11/2024 TECHNIQUE: 3 views of the left foot. FINDINGS: Status post transmetatarsal amputation. Redemonstrated is soft tissue wound laterally at the level of the proximal fifth metatarsal. Erosive changes in the fifth metatarsal base, appearing slightly worsened from previous. This is highly suspicious for osteomyelitis. This is evaluated on the previous MRI 12/11/2024. Redemonstrated is diffuse chronic changes of the second-fourth metatarsals and distal tarsals. Soft tissue swelling. No radiopaque foreign body seen. XR/XR foot LT min 3V IMPRESSION: 1. Lateral soft tissue wound at the level of the proximal fifth metatarsal. Erosive changes in the fifth metatarsal base, appearing more prominent as compared to previous, highly suspicious for osteomyelitis. This is better evaluated on the recent MRI of 12/11/2024. 2. Additional chronic changes as detailed above. Electronically signed by: Babak Cloud MD 12/22/2024 09:57 AM EDT
--- NOTE | ~2024-12-22 | CT_ITS ---
EXAMINATION: CT CERVICAL SPINE WITHOUT CONTRAST CLINICAL INFORMATION: Neck pain, head trauma COMPARISON: August 27, 2024 TECHNIQUE: Axial imaging was performed from the base of the skull through T2 without IV contrast. Coronal and sagittal reformatted images were generated from the original axial data set. ALARA: The examination used one or more of the following radiation dose reduction techniques: Automated exposure control, iterative reconstruction, and/or adjustment of mA and/or KV. FINDINGS: There is mild reversal cervical lordosis. 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 There is no prevertebral soft tissue edema. Soft tissues are unremarkable. CT/CT cervical spine wo IV con IMPRESSION: There is mild reversal of cervical lordosis. This can be related to positioning, muscle spasm, or posterior soft tissue injury. No acute abnormality. Electronically signed by: Juan Alberto Guevara MD 12/22/2024 11:13 AM EDT
--- NOTE | 2024-12-22 08:51 | ED.LOWEXIN ---
HPI - Extremity Injury (Lower) General Chief Complaint: Fall Stated Complaint: ? AMBREEN INFECTED FOOT WOUNDS PER EMS Time Seen by Provider: 12/22/24 08:51 Source: patient, EMS, RN notes reviewed and old records reviewed Mode of arrival: EMS History of Present Illness ED Provider: Urszula Garcia PA-C HPI Narrative: 34-year-old female with a past medical history PAD s/p bilateral TMA secondary to osteomyelitis, ESRD on HD (T/T/S), chronic opioid addiction, diabetes uncontrolled, C diff, CHF, relapsing remitting MS vs central pontine myelinolysis, chronic anemia, presenting to the ED via EMS complaining of headache & neck pain s/p mechanical trip and fall in bathroom this morning with + head strike on tub. Admits to associated nausea and vomiting which was present prior to fall. Denies anticoagulation use or LOC. Also reports acute on chronic wound to left foot now with malodorous drainage. Denies CP/SOB. Patient was evaluated in our ED yesterday, noted to be hyperkalemic, missed dialysis on Sunday, last dialysis was on . Patient was supposed to have dialysis this morning. Related Data Home Medications ?Medication ?Instructions ?Recorded ?Confirmed albuterol sulfate 90 mcg/actuation 2 puff inhalation Q6H PRN wheezing 01/15/24 12/10/24 aerosol inhaler (Ventolin HFA) lidocaine 5 % topical patch 1 patch topical DAILY PRN Pain 01/15/24 12/10/24 nitroglycerin 0.4 mg sublingual 0.4 mg sublingual DIRECTED PRN 01/15/24 12/10/24 tablet Angina acetaminophen 325 mg tablet 650 mg PO Q4H PRN mild pain 03/11/24 12/10/24 calcium carbonate (Tums) 200 mg PO TIDWM PRN Acid Reflux 07/03/24 12/10/24 Previous Rx's ?Medication ?Instructions ?Recorded carvedilol 12.5 mg tablet 12.5 mg PO BID 90 days #180 tabs 12/16/23 hydralazine 50 mg tablet 50 mg PO TID 90 days #270 tabs 12/16/23 blood sugar diagnostic (FreeStyle #100 ea 08/26/24 Lite Strips) blood-glucose meter (FreeStyle #1 ea 08/26/24 Lite Meter kit) lancets 28 gauge (FreeStyle #100 ea 08/26/24 Lancets) pen needle, diabetic 32 gauge x #100 ea 08/26/24 1/4 oxycodone 5 mg tablet 5 mg PO Q8H PRN pain #15 tabs 09/10/24 fidaxomicin 200 mg tablet (Dificid) 200 mg PO Q12H #22 tabs 11/04/24 doxycycline hyclate 100 mg tablet 100 mg PO BID #28 tabs 12/15/24 hydromorphone 4 mg tablet 4 mg PO Q6H PRN pain #20 tabs 12/19/24 (Dilaudid) metoclopramide HCl 10 mg tablet 10 mg PO Q6H PRN nausea and 12/19/24 (Reglan) vomiting #14 tabs Allergies Allergy/AdvReac Type Severity Reaction Status Date / Time gabapentin Allergy Severe Facial Verified 12/22/24 08:54 Swelling tramadol Allergy Severe Facial Verified 12/22/24 08:54 Swelling azithromycin (From Zithromax) Allergy Intermediate Hives Verified 12/22/24 08:54 morphine (MORPHINE) Allergy Intermediate Itching Verified 12/22/24 08:54 vancomycin AdvReac Intermediate Itching Verified 12/22/24 10:52 Review of Systems Review of Systems: Yes all other systems are reviewed and are negative Constitutional: Constitutional: Reports as per [facility] Past Medical History Attestation statement: The following information was validated with the patient. Source: old records reviewed Medical History Multiple sclerosis Cerebral infarction Hyperkalemia ESRD on dialysis Hypoxia End stage renal disease on dialysis Chronic ulcer of right foot due to diabetes mellitus Chronic ulcer of left foot due to diabetes mellitus DM foot ulcer ESRD on hemodialysis Hypotonic neurogenic bladder Diabetic polyneuropathy Hypertensive emergency Decompensated heart failure Renal failure Hypertension, uncontrolled Medical non-compliance Pericarditis Unspecified hypertension, condition or complication Metabolic acidosis Gastroparesis End stage chronic kidney disease Chronic kidney disease Anemia Plantar ulcer of left foot MDD (major depressive disorder) CKD (chronic kidney disease) Hypertension Vomiting Chronic pain Non-compliance with renal dialysis End-stage renal disease (ESRD) Diabetic foot ulcer associated with type 2 diabetes mellitus Cardiomyopathy HFrEF (heart failure with reduced ejection fraction) delivery delivered Anemia in chronic kidney disease (CKD) CKD (chronic kidney disease) Abnormal finding on echocardiogram Elevated troponin Acute worsening of stage 3 chronic kidney disease Generalized edema Sepsis Cellulitis Pleural effusion Atypical chest pain Bone infection PAD (peripheral artery disease) Cellulitis and abscess of foot Osteomyelitis Asthma Depression with anxiety Diabetic retinopathy Blind right eye Diabetes Back pain Surgical History Tubal ligation status Previous section Hx laparoscopic cholecystectomy Hx of surgical procedure (~09/11/23) 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 Family History Family History Mother Coronary artery disease Myocardial infarction Stroke Diabetes mellitus Father Myocardial infarction Social History Social History Household Members: Family and Caregiver Household Members Other:: sister, brother, [id number] Housing: Apartment Housing Other:: Apartment, 1st floor Are you a primary critical care specialist to a significant other at home: No Do you presently have visiting nurse or other home services: No Alcohol intake: never Comment: Intermittently refuses Patient Tobacco Use Status: Never used Tobacco Smoked in Last 30 Days: No e-Cigarette/Vaping Use: Never Used Second Hand Smoke Exposure: No Use of substances other than those prescribed or required for medical reasons: No Advance Directives: Yes Advance Directives on File: Yes Advance Directives Date on File: 08/28/23 Do you have a plan to hurt others: No Plan Patient : No service: No Current occupational status: unemployed and disabled Gender identity: Female Physical Exam Vital Signs: Vital Signs: Last Vital Signs Temp 97.8 F 12/22/24 09:05 Pulse 85 12/22/24 11:27 Resp 12 12/22/24 10:26 BP 205/103 H 12/22/24 11:27 Pulse Ox 95 12/22/24 10:26 O2 Del Method Room Air 12/22/24 10:26 BMI result Body Mass Index 35.2 Const: General: cooperative, healthy appearing and no acute distress Orientation/consciousness: patient oriented x3 Limitations: no limitations HEENT: Head: Yes normal to inspection and Yes atraumatic Ears: hearing grossly normal bilaterally General nose exam: Normal external nose present Face and sinus: Yes normal facial exam Eyes: General: appearance normal, both eyes and all related structures EOM: EOMs intact bilaterally Neck: Other: C-collar in place. Cervical tenderness noted. Neck: Yes normal visual inspection and Yes no meningeal signs Resp: Effort & Inspection: normal respiratory effort and no respiratory distress Auscultation: clear to auscultation bilaterally, no crackles and no wheezes Cardio: Rate: regular rate Heart sounds: S1 normal heart sound present and S2 normal heart sound present GI: Inspection: Yes normal to inspection Palpation (GI): Soft to palpation, nontender, no guarding and not rigid Back/Spine/Pelvis: Other: No midline cervical/thoracic/lumbar spinous tenderness/step-off or deformity Skin: Rashes: no rashes Neuro: General: patient oriented x3, tone normal, moves all extremities, no meningeal signs and no focal motor deficits Cranial nerves: Yes CN's II-XII intact bilaterally Extrem: Other: Left foot with chronic appearing ulcer to plantar aspect. Right foot with open draining ulcer to lateral aspect. Mildly tender to palpation. Pus expressed. Course Course Course Narrative: -H&H at patient's baseline. ESR / CRP chronically elevated. -Potassium elevated to 6.0 > Lokelma, albuterol, and calcium given -acute on chronic CKD - patient has missed last 2 dialysis sessions XR foot LT min 3V IMPRESSION: 1. Lateral soft tissue wound at the level of the proximal fifth metatarsal. Erosive changes in the fifth metatarsal base, appearing more prominent as compared to previous, highly suspicious for osteomyelitis. This is better evaluated on the recent MRI of 12/11/2024. 2. Additional chronic changes as detailed above. > will consult ID, Dr. Diallo who discontinued patient's p.o. doxycycline on 12/19/2024 when patient was in the ED. > recommends vancomycin/Zosyn for cellulitis. Patient likely needs amputation. -discussed case with general surgery, Dr. Rajput CT head/brain wo IV con IMPRESSION: There is an area of thickening in the left posterior retina measuring 5 x 16 mm. Recommend ophthalmic follow-up. 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 Chronic right maxillary sinus mucosal thickening. No acute intracranial abnormality. CT cervical spine wo IV con IMPRESSION: There is mild reversal of cervical lordosis. This can be related to positioning, muscle spasm, or posterior soft tissue injury. No acute abnormality. >1120--discussed with the patient's bulk loader Dr. Siddiqi who will set up dialysis for patient. Plan for admission. Case discussed with hospitalist Medications Administered Generic Name Dose Route Start Last Admin Trade Name Freq PRN Reason Stop Dose Admin Vancomycin HCl 2,000 mg in 500 mls @ 250 mls/hr 12/22/24 10:27 12/22/24 10:53 Vancomycin/Ns IV 12/22/24 12:26 Not Given ONCE ONE Discontinued Medications Generic Name Dose Route Start Last Admin Trade Name Freq PRN Reason Stop Dose Admin Albuterol Sulfate 10 mg 12/22/24 09:56 12/22/24 10:07 Albuterol Sulfate (0.083%) 2.5 Mg/3 Ml Vial.Neb INHALE 12/22/24 09:57 10 mg ONCE ONE Administration Diphenhydramine HCl 50 mg 12/22/24 10:09 12/22/24 10:14 Diphenhydramine Hcl 50 Mg/Ml Vial IVPUSH 12/22/24 10:10 50 mg ONCE ONE Administration Hydromorphone HCl 1 mg 12/22/24 09:42 12/22/24 09:56 Hydromorphone Hcl 1 Mg/Ml Syringe IVPUSH 12/22/24 09:43 1 mg ONCE ONE Administration Protocol Calcium Gluconate 1 gm in 50 mls @ 50 mls/hr 12/22/24 09:12 12/22/24 10:15 Calcium Gluconate IV 12/22/24 10:11 Infused ONCE ONE Infusion Piperacillin Sod/Tazobactam 50 mls @ 100 mls/hr 12/22/24 10:27 12/22/24 11:24 Sod 2.25 gm/ Sodium Chloride IV 12/22/24 10:56 Infused ONCE ONE Infusion Labetalol HCl 10 mg 12/22/24 09:56 12/22/24 10:01 Labetalol Hcl 100 Mg/20 Ml Vial IVPUSH 12/22/24 09:57 10 mg ONCE ONE Administration Labetalol HCl 20 mg 12/22/24 11:23 12/22/24 11:27 Labetalol Hcl 100 Mg/20 Ml Vial IVPUSH 12/22/24 11:24 20 mg ONCE ONE Administration Metoclopramide HCl 10 mg 12/22/24 09:11 12/22/24 09:24 Metoclopramide Hcl 10 Mg/2 Ml Vial IVPUSH 12/22/24 09:12 10 mg ONCE ONE Administration Sodium Zirconium Cyclosilicate 5 gm 12/22/24 09:48 12/22/24 10:26 Sodium Zirconium Cyclosilicate 5 Gm Powd.Pack PO 12/22/24 09:49 5 gm ONCE ONE Administration Medical Decision Making Medical Decision Making [facility] Narrative: 34-year-old female with a past medical history PAD s/p bilateral TMA secondary to osteomyelitis, ESRD on HD (T/T/S), chronic opioid addiction, diabetes uncontrolled, C diff, CHF, relapsing remitting MS vs central pontine myelinolysis, chronic anemia, presenting to the ED via EMS complaining of headache & neck pain s/p mechanical trip and fall in bathroom this morning with + head strike on tub. Also reports acute on chronic wound to left foot now with malodorous drainage. On exam hypertensive, NAD, no focal neuro deficits. C-collar in place. Draining wound noted to left foot with expressible pus drainage. Concern for ICH vs fractures vs acute on chronic osteomyelitis vs metabolic abnormalities including hyperkalemia secondary to multiple missed dialysis sessions. Plan: EKG, labs, x-ray, head/C-spine CT, BP control, pain management, consult Nephrology, anticipated admission Please refer to course for remaining clinical decision making, interpretation of labs/imaging results, and discussions with consultants and/or family members. Differential Diagnosis Differential Diagnoses: The differential diagnosis associated with the presentation includes As above Admission/Observation Consideration of admission/observation: Escalation of care including admission/observation considered Consult Healthcare Provider Management of the patient was discussed with: Hospitalist and Director Of Psychology (ID, General surgery, nephrology) Lab Data [facility] Lab Attestation statement: I reviewed the patient's lab results. 12/22/24 09:22 12/22/24 09:22 Labs: Lab Results 12/22/24 Range/Units 09:22 WBC 4.2 L (4.8-10.8) X10*3/uL RBC 3.07 L (4.20-5.50) X10*6/uL Hgb 9.4 L (12.0-16.0) g/dl Hct 29.4 L (37.0-47.0) % MCV 95.8 (80.0-98.0) fL MCH 30.6 (27.0-33.0) pg MCHC 32.0 (31.0-35.0) g/dl RDW 14.0 (11.0-16.0) % Plt Count 93 L (160-400) X10*3/uL MPV 12.7 H (9.4-12.3) fL Immature Gran % (Auto) 0.2 (0.0-0.4) % Neut % (Auto) 70.9 (45-73) % Lymph % (Auto) 14.5 L (20-40) % Emmet % (Auto) 9.0 (2-11) % Eos % (Auto) 4.7 H (0-4) % Baso % (Auto) 0.7 (0-2) % Lymph # (Auto) 0.6 L (1.2-4.9) X10*3/uL Emmet # (Auto) 0.4 (0.1-1.2) X10*3/uL Eos # (Auto) 0.2 (0.0-0.4) X10*3/uL Baso # (Auto) 0.0 (0.0-0.2) X10*3/uL Abs Immat Gran (auto) 0.01 (0.00-0.03) X10*3/uL Absolute Neuts (auto) 3.0 (2.0-8.3) x10*3/uL Absolute Nucleated RBC 0.000 (0.0-0.012) X10*3/uL Nucleated RBC % (auto) 0.0 (0.0-0.2) /100WBC ESR 47 H (0-20) MM/HR Sodium 139 (135-145) mmol/L Potassium 6.0 H* (3.3-5.1) mmol/L Chloride 104 (96-108) mmol/L Carbon Dioxide 20 L (22-29) mmol/L Anion Gap 21 H (12-20) BUN 85 H (9-16) mg/dL Creatinine 11.65 H* (0.5-1.4) mg/dL Estim Creat Clear Calc 7.3 Estimated GFR 4 Random Glucose 87 (60-115) mg/dL Lactic Acid 0.8 (0.5-2.0) mmol/L Calcium 8.2 L (8.4-10.2) mg/dL Magnesium 2.6 (1.6-2.6) mg/dL Total Bilirubin 0.9 (0.0-1.0) mg/dL Direct Bilirubin 0.4 (0.0-0.5) mg/dL AST 33 H (5-31) U/L ALT 21 (0-31) U/L Alkaline Phosphatase 150 H (39-117) U/L C-Reactive Protein 0.95 H (< or = 0.50) mg/dL Total Protein 7.7 (6.5-8.0) g/dL Albumin 4.0 (3.5-5.0) g/dL Hold Red Top See Note Independent Interpretation I performed an independent interpretation of an: EKG (My interpretation EKG normal sinus rhythm with right bundle-branch block. Rate of 91. QTC 543. PT waves appreciated. No STEMI.), Plain X-Ray and CT Scan Radiology Impression Discussion of test interpretation with radiology: I have reviewed the radiologist's reading. Independent Historian Clinical information obtained from an independent historian. History obtained from or confirmed by: EMS External Record Review External record reviewed: Inpatient record, Office record, Outpatient record, Prior outpatient labs, Prior outpatient radiology, Primary care record and Outside ED record Tests considered The following testing was considered but not selected: As above Prescription Management I considered prescription management with: Pain Medication and Antibiotic Chronic Conditions Patient?s care impacted by: Diabetes Social Determinants Patient?s care significantly limited by Social Determinants of Health including: Low income, Problems related to primary support group, Problems related to employment and Other Social Determinant of Health Critical Care Time Critical Care Time Critical Care Time: Yes Total Critical Care Time: 60 Attestation: I have personally provided critical care time exclusive of time spent on separately billable procedures. Time includes review of lab data, radiology results, discussion with consultants, and monitoring for potential decompensation. Intervention performed as documented. Discharge Plan Discharge Clinical Impression: Hyperkalemia, ESRD on dialysis Osteomyelitis Qualifiers: Osteomyelitis type: unspecified type Osteomyelitis location: foot Laterality: right Qualified Code(s): M86.9 - Osteomyelitis, unspecified Patient Disposition: Admitted As Inpatient Print Language: Amharic
--- NOTE | 2024-12-22 09:05 | ECG_ITS ---
Test Reason : HYPERTENION Blood Pressure : */* mmHG Vent. Rate : 91 BPM Atrial Rate : 91 BPM P-R Int : 162 ms QRS Dur : 156 ms QT Int : 442 ms P-R-T Axes : 55 -36 60 degrees QTcB Int : 543 ms Poor data quality, interpretation may be adversely affected Normal sinus rhythm Possible Left atrial enlargement Left axis deviation Right bundle branch block Abnormal ECG When compared with ECG of 21-Dec-2024 12:02, No significant change was found Referred By: Generic ED Physician Electronically Signed By: JASKARAN COOL
--- NOTE | 2024-12-22 09:06 | PC.NURSE ---
34 F presents to ED after fall in bathroom, loss balance and hit back of head, c/o neck and back of head pain. Pt is A+OX4, anxious, cooperative. PT denies LOC, not on thinners. Dialysis T, TH, Sat but unsure if went on sunday. RR even and unlabored, denies Cp or SOB. Pus drainage from chronic wound on left foot, cleaned with NS and patted dry.
[2024-12-22] MEDS: Calcium Gluconate/NaCl,Iso-Osm 1 GM/50 ML PLAST..BAG IV (09:24)
[2024-12-22 09:29] LABS: MANUAL DIFF FLAG NO
[2024-12-22 09:31] LABS: Hematocrit 29.4 % (37.0-47.0); Hemoglobin 9.4 g/dl (12.0-16.0); Imm Gran Abs Auto 0.01 X10*3/uL (0.00-0.03); Imm Gran Pct Auto 0.2 % (0.0-0.4); Lymphocytes Absolute Auto 0.6 X10*3/uL (1.2-4.9); Mean Corpuscular HGB Conc 32.0 g/dl (31.0-35.0); Mean Corpuscular Hemoglobin 30.6 pg (27.0-33.0); Mean Corpuscular Volume 95.8 fL (80.0-98.0); NRBC Abs Auto 0.000 X10*3/uL (0.0-0.012); NRBC Pct Auto 0.0 /100WBC (0.0-0.2); Red Blood Count 3.07 X10*6/uL (4.20-5.50); White Blood Count 4.2 X10*3/uL (4.8-10.8)
[2024-12-22 09:33] LABS: Platelet Count 93 X10*3/uL (160-400)
--- NOTE | 2024-12-22 09:42 | PC.NURSE ---
pt removed c-collar after being told she needs to wear it until scans are completed to ensure there are no c-spine fractures. Pt responded I can't and removed the collar. Provider Urszula Garcia aware.
[2024-12-22 09:53] LABS: Alanine Aminotransferase 21 U/L (0-31); Albumin Level 4.0 g/dL (3.5-5.0); Alkaline Phosphatase 150 U/L (39-117); Anion Gap 21 (12-20); Aspartate Amino Transferase 33 U/L (5-31); Blood Urea Nitrogen 85 mg/dL (9-16); Calcium 8.2 mg/dL (8.4-10.2); Carbon Dioxide 20 mmol/L (22-29); Chloride 104 mmol/L (96-108); Creatinine Clr Calc Pharmacy 7.3; Estimated Glomerular Filt Rate 4; Magnesium 2.6 mg/dL (1.6-2.6); Potassium 6.0 mmol/L (3.3-5.1); Sodium 139 mmol/L (135-145); Total Protein 7.7 g/dL (6.5-8.0)
--- NOTE | 2024-12-22 09:56 | MHC.EDTECH ---
finished doing orthodontic signs on pt. pt cant stand just did sitting and laying.
--- OUTSIDE RECORDS SUMMARY | 2024-12-22 10:01 | XMS_ITS | Encounter Summary ---
Author Organization [employer] Address [address] [facility] 7[address] [place] [address] Care Team Providers Care Tile Helper Name Role Phone Genevieve Gtz MD Primary Care Pro vider Reason for Visit * Reason Comments Med Change Request Encounter Details Date Type Department Care Team ([facility] st Contact Info) Description 03/15/2023 Refill [facility] [address] [place], [place] [phone] Genevieve Gtz MD [address] [place], [place] [phone] Benign essential hypertension Social History Tobacco Use [...] [facility] MED & PEDS [address] [place] [address] Paola Thurston RN [address] [place] [address] 02/11/2025 2:45 PM EST Clinical Support [facility] MED & PEDS [address] [place] [address] Paola Thurston RN [address] [place] [address] documented as of this encounter Visit Diagnoses Diagnosis Benign essential hypertension Essential hypertension, benign documented in this encounter Additional Health Concerns Assessment Noted Time PHQ-9 Depression Total Score: 0 10/13/19 23 2:37 PM EDT documented as of this encounter Care Teams Tile Helper Relationship Specialty Start Date End Date Genevieve Gtz MD [address] [place] [address] [phone] PCP - General Internal Medicine 10/12/22 documented as of this encounter
--- OUTSIDE RECORDS SUMMARY | 2024-12-22 10:01 | XMS_ITS | Encounter Summary ---
Author Organization [employer] Address [address] [facility] 7t [place] [address] Care Team Providers Care Rhic Systems Safety Engineer Name Role Phone Genevieve Gtz MD Primary Care Pro vider Reason for Visit * Reason Onset Date Comments Med Refill 01/08/2023 Encounter Details Date Type Department Care Team ([facility] Contact Info) Description 01/08/2023 Telephone [facility] MEDICINE [address] [place], [place] [phone] Genevieve Gtz MD [address] [place], [place] [phone] Med Refill Social History Tobacco Use Types [...] 12/31/2024 10:00 AM EST Telemedicine [facility] MED & PEDS [address] [place] [address] Paola Thurston RN [address] [place] [address] 02/11/2025 2:45 PM EST Clinical Support [facility] MED & PEDS [address] [place] [address] Paola Thurston RN [address] [place] [address] documented as of this encounter Visit Diagnoses Not on filedocumented in this encounter Additional Health Concerns Assessment Noted Time PHQ-9 Depression Total Score: 0 10/13/19 2:37 PM EDT documented as of this encounter Care Teams [employer] Safety Engineer Relationship Specialty Start Date End Date Genevieve Gtz MD [address] [place] [id number] PCP - General Internal Medicine 10/12/22 documented as of this encounter
--- OUTSIDE RECORDS SUMMARY | 2024-12-22 10:01 | XMS_ITS | Encounter Summary ---
Author Organization [employer] Address [address] [facility] 7t [place] [address] Care Team Providers Care Haulage Boss Name Role Phone Genevieve Gtz MD Primary Care Pro vider Reason for Visit * Reason Onset Date Comments Med Refill 06/21/2023 Encounter Details Date Type Department Care Team ([facility] Contact Info) Description 06/21/2023 Telephone [facility] MEDICINE [address] [place], [place] [phone] eGnevieve Gtz MD [address] [place], [place] [phone] Med Refill Social History Tobacco Use Types [...] immediate release tablet To be sent to: [facility]/pharmacy #[id number] - [place], [place] - [address] [place] [address] documented in this encounter Plan of Treatment Upcoming Encounters Date Type Department Care Team (Late st Contact Info) Description 12/31/2024 10:00 AM EST Telemedicine [facility] MED & PEDS [address] [place] [address] Paola Thurston RN [address] [place] [address] 02/11/2025 2:45 PM EST Clinical Support [facility] MED & PEDS [address] [place] [address] Paola Thurston RN [address] [place] [address] documented as of this encounter Goals Goal [...] documented as of this encounter Care Teams Haulage Boss Relationship Specialty Start Date End Date Genevieve Gtz MD [address] [place] [id number] PCP - General Internal Medicine 10/12/22 documented as of this encounter
--- OUTSIDE RECORDS SUMMARY | 2024-12-22 10:01 | XMS_ITS | Encounter Summary ---
Author Organization [employer] Address [address] [facility] [address] [place] [address] Care Team Providers Care Technical Adjuster Name Role Phone Genevieve Gtz MD Primary Care Pro vider Reason for Visit * Reason Onset Date Comments Med Refill 10/23/2024 Encounter Details Date Type Department Care Team ([facility] Contact Info) Description 10/23/2024 Telephone [facility] MEDICINE [address] [place] [address] Genevieve Gtz MD [address] [place], [place] [phone] Med Refill Social History Tobacco Use Types [...] from pt retuning call Contact pt at [phone] * Telephone Encounter - Paola Thurston RN - 10/23/2024 10:24 AM EDT Pt requesting refill of Oxycodone 5mg. No show to ARCHITECTURAL DRAFTING INSTRUCTOR appt 08/06/24. Multiple TC to pt to r/s, no answer, no c/b. Also no showed to appt with you 09/26/24. Please advise. * Telephone Encounter - Colten Mullen - 10/23/2024 10:07 AM EDT TC from pt requesting medication refill. Medications needing refill : oxyCODONE (Roxicodone) 5 MG immediate release tablet To be sent to: [facility]/pharmacy #[id number] documented in this encounter Plan of Treatment Upcoming Encounters Date Type Department Care Team (Late st Contact Info) Description 12/31/2024 10:00 AM EST Telemedicine [facility] MED & PEDS [address] [place] [address] Paola Thurston RN [address] [place] [address] 02/11/2025 2:45 PM EST Clinical Support [facility] MED & PEDS [address] [place] [address] Paola Thurston RN [address] [place] [address] documented as of this encounter Goals Goal [...] documented as of this encounter Care Teams Technical Adjuster Relationship Specialty Start Date End Date Genevieve Gtz MD [address] [place] [address] [phone] PCP - General Internal Medicine 10/12/22 documented as of this encounter
--- OUTSIDE RECORDS SUMMARY | 2024-12-22 10:01 | XMS_ITS | Encounter Summary ---
Author Organization [employer] Address [address] [facility] 7t [place] [address] Care Team Providers Care Medical Resident Name Role Phone Carolina Hsu ROOFING TECHNICIAN Primary Care Provider Genevieve Wilson MD Primary Care Pro vider Reason for Visit * Reason Onset Date Comments Appointment Request 03/30/2022 Encounter Details Date Type Department Care Team ([facility] st Contact Info) Description 03/30/2022 Telephone [facility] MEDICINE [address] [place] [address] [phone] Carolina Hsu FNP Appointment Request Social History [...] EST TC to pt, NCNS for todays AIR SURVEILLANCE OPERATOR Renewal appt. Pt stated she is currently admitted to [facility], she statedshe has fluid in her lungs and she's a mess. Wished patient well and told her I would forward this information to her PCP. Requested she call back to reschedule AIR SURVEILLANCE OPERATOR appt when she's feeling better. * Telephone Encounter - Stephen Davison - 03/30/2022 10:41 AM EST documented in this encounter Plan of Treatment Upcoming Encounters Date Type Department Care Team (Late st Contact Info) Description 12/31/2024 10:00 AM EST Telemedicine [facility] MED & PEDS [address] [place] [address] Paola Thurston RN 505 [place] [address] 02/11/2025 2:45 PM EST Clinical Support [facility] MED & PEDS 505 [place] [address] Paola Thurston RN 505 [place] [address] documented as of this encounter Visit Diagnoses Not on filedocumented in this encounter Care Teams Medical Resident Relationship Specialty Start Date End Date Carolina Hsu FNP PCP - General Family Medicine 01/16/22 10/11/22 Genevieve Gtz MD [address] [place] [address] PCP - General Internal Medicine 10/12/22 documented as of this encounter
--- OUTSIDE RECORDS SUMMARY | 2024-12-22 10:01 | XMS_ITS | Encounter Summary ---
Author Organization [employer] Address [address] [place] [address] 7t [place] [address] Care Team Providers Care Small Parts Assembler Name Role Phone Genevieve Gtz MD Primary Care Pro vider Reason for Visit * Reason Onset Date Comments Med Refill 11/27/2022 Encounter Details Date Type Department Care Team ([facility] st Contact Info) Description 11/27/2022 Telephone [facility] MEDICINE 230 [place], [place] [phone] Genevieve Gtz MD 230 [place], [place] [phone] Med Refill Social History Tobacco Use Types [...] medication oxycodone 5 mg. Please send to [facility]/pharmacy #[id number] - [place] - [address] Cool documented in this encounter Plan of Treatment Upcoming Encounters Date Type Department Care Team (Late st Contact Info) Description 12/31/2024 10:00 AM EST Telemedicine [facility] MED & PEDS 505 [place] [address] Paola Thurston RN 505 [place] [address] 02/11/2025 2:45 PM EST Clinical Support [facility] MED & PEDS 505 [place] [address] Paola Thurston RN 505 [place] [address] documented as of this encounter Visit Diagnoses Not on filedocumented in this encounter Additional Health Concerns Assessment Noted Time PHQ-9 Depression Total Score: 0 10/13/19 2:37 PM EDT documented as of this encounter Care Teams Small Parts Assembler Relationship Specialty Start Date End Date Genevieve Gtz MD [address] [place] [address] PCP - General Internal Medicine 10/12/22 documented as of this encounter
--- OUTSIDE RECORDS SUMMARY | 2024-12-22 10:01 | XMS_ITS | Encounter Summary ---
Author Organization [employer] Address [address] [facility] 7t [place] [address] Care Team Providers Care Ski Production Supervisor Name Role Phone Genevieve Gtz MD Primary Care Pro vider Encounter Details Date Type Department Care Team (Late st Contact Info) Description 01/21/2024 Telephone [facility] MEDICINE 230 [place], [place] [phone] Genevieve Gtz MD 230 [place], [place] [phone] Social History Tobacco Use Types Packs/Day Years [...] Miscellaneous Notes * Telephone Encounter - Armida Gómze - 01/21/2024 1:31 PM EST Tc from pt requesting a status on med Oxycodone 5mg , pt requests a callback [phone] documented in this encounter Plan of Treatment Upcoming Encounters Date Type Department Care Team (Late st Contact Info) Description 12/31/2024 10:00 AM EST Telemedicine [facility] MED & PEDS 505 [place] [address] Paola Thurston RN 505 [place] [address] 02/11/2025 2:45 PM EST Clinical Support [facility] MED & PEDS 505 [place] [address] Paola Thurston RN 505 [place] [address] documented as of this encounter Goals Goal [...] documented as of this encounter Care Teams Ski Production Supervisor Relationship Specialty Start Date End Date Genevieve Gtz MD [address] [place] [address] PCP - General Internal Medicine 10/12/22 documented as of this encounter
--- OUTSIDE RECORDS SUMMARY | 2024-12-22 10:01 | XMS_ITS | Encounter Summary ---
Author Organization [facility] Address [address] [facility] [address] [place] [address] Phone Care Team Providers Care Didactic Instructor Name Role Phone Genevieve Gtz MD Primary Care Pro vider Encounter Details Date Type Department Care Team ([facility] Contact Info) Description 12/20/2024 Home Care Visit [facility] [address] [place] [phone] Becca Saenz, KIRIT [address] [place] [address] [email or web address] CASE COMMUNICATION Social History Tobacco Use Types [...] on filedocumented in this encounter Care Teams Didactic Instructor Relationship Specialty Start Date End Date Genevieve Gtz MD [address] [place] [address] [phone] PCP - General Internal Medicine 11/06/24 documented as of this encounter Additional Source Comments The information contained in this document represents components of the legal health record. It is not the complete legal health record.[facility]
--- OUTSIDE RECORDS SUMMARY | 2024-12-22 10:01 | XMS_ITS | Encounter Summary ---
Author Organization [facility] Address [address] [place] [phone] Phone Care Team Providers Care Machine Operator Packaging Name Role Phone EmilyAlyssa hutchinson Primary Care Provider Unava ilable Encounter Details Date Type Department Care Team (Late st Contact Info) Description 11/22/2024 TCM in Dialysis Clinic [facility] [address] [phone] Placido Carver MD [address] [phone] Social History Tobacco Use Types [...] 11/22/2024 The patient was seen for a bvib-pj-[id number] visit as part of Transitional Care Management services. Attending Clerk Secretary: PLACIDO CARVER MD Dialysis Location: [facility] Schedule: Shift: 2 INTERACTIVE [...] with the patient. VISIT DIAGNOSES CPT Code 04675 - High complexity, seen 8-14 days post discharge or moderate complexity, seen [id number] days of discharge. N18.6 End stage renal disease Signed by: PLACIDO CARVER MD on 11/22/2024 at 01:18:26 PM Transcribed by: PLACIDO CARVER MD on 11/22/2024 at 01:18:26 PM documented in this encounter Plan of Treatment Not on file documented as of this encounter Visit Diagnoses Not on filedocumented in this encounter Care Teams Machine Operator Packaging Relationship Specialty Start Date End Date Alyssa Manzano DO 230 [place] [address] PCP - General Family Medicine 03/02/21 documented as of this encounter
--- OUTSIDE RECORDS SUMMARY | 2024-12-22 10:01 | XMS_ITS | Encounter Summary ---
Author Organization [employer] Address 75 [facility] 7t [place] [address] Care Team Providers Care Airplane Cleaner Name Role Phone Genevieve Gtz MD Primary Care Pro vider Reason for Visit * Reason Onset Date Comments Call Back Request 06/15/2023 Encounter Details Date Type Department Care Team ([facility] Contact Info) Description 06/15/2023 Telephone [facility] MEDICINE 230 [place], [place] [phone] Genevieve Gtz MD 230 [place], [place] [phone] Call Back Request Social History Tobacco Use [...] pt requesting a call back in regards FAMILY RESOURCE MANAGEMENT PROFESSOR medication. documented in this encounter Plan of Treatment Upcoming Encounters Date Type Department Care Team ([facility] st Contact Info) Description 12/31/2024 10:00 AM EST Telemedicine [facility] MED & PEDS 505 [place] [address] Paola Thurston RN 505 [place] [address] 02/11/2025 2:45 PM EST Clinical Support [facility] MED & PEDS 505 [place] [address] Paola Thurston RN 505 [place] [address] documented as of this encounter Goals Goal [...] documented as of this encounter Care Teams Airplane Cleaner Relationship Specialty Start Date End Date Genevieve Gtz MD [address] [place] [address] [phone] PCP - General Internal Medicine 10/12/22 documented as of this encounter
--- OUTSIDE RECORDS SUMMARY | 2024-12-22 10:01 | XMS_ITS | Encounter Summary ---
Author Organization [employer] Address [address] [place] [address] 7t [place] [address] Care Team Providers Care Salt Refiner Name Role Phone Carolina Hsu DEVELOPMENT MGR Primary Care Provider Genevieve Wilson MD Primary Care Pro vider Encounter Details Date Type Department Care Team (Late Contact Info) Description 09/11/2022 Abstract [facility] MEDICINE 230 [place] [address] Carolina Hsu FNP Social History Tobacco Use [...] Info) Description 12/31/2024 10:00 AM EST Telemedicine [facility] MED & PEDS 505 [place] [address] Paola Thurston RN 505 [place] [address] 02/11/2025 2:45 PM EST Clinical Support [facility] MED & PEDS 505 [place] [address] Paola Thurston RN 505 [place] [address] documented as of this encounter Visit Diagnoses Not on filedocumented in this encounter Care Teams Salt Refiner Relationship Specialty Start Date End Date Carolina Hsu FNP PCP - General Family Medicine 01/16/22 10/11/22 Genevieve Gtz MD [address] [place] [address] PCP - General Internal Medicine 10/12/22 documented as of this encounter
--- OUTSIDE RECORDS SUMMARY | 2024-12-22 10:01 | XMS_ITS | Encounter Summary ---
Author Organization [employer] Address [address] [facility] 7t [place] [address] Care Team Providers Care Rug Inspector Helper Name Role Phone Genevieve Gtz MD Primary Care Pro vider Reason for Visit * Reason Onset Date Comments Hospital Follow-up 03/04/2024 Encounter Details Date Type Department Care Team ([facility] Contact Info) Description 03/04/[address] [facility] MEDICINE 230 [place], [place] [phone] Genevieve Gtz MD 230 [place] [address] Hospital Follow-up Social History Tobacco Use Types [...] your housing situation today? I have katya reionso 09/20/[address] you li [...] from pt requesting a HDF appt. [facility]: [facility] Date of admission: 02/21/2024 Discharge date: 02/01/2025 Diagnosed: Oxygen , Infection Dialysis tube *Send message to [place] Clinical Care Coordinators documented in this encounter Plan of Treatment Upcoming Encounters Date Type Department Care Team ([facility] st Contact Info) Description 12/31/2024 10:00 AM EST Telemedicine [facility] MED & PEDS 505 [place] [address] Paola Thurston RN 505 [place] [address] 02/11/2025 2:45 PM EST Clinical Support [facility] MED & PEDS 505 [place] [address] Paola Thurston RN 505 [place] [address] documented as of this encounter Goals Goal [...] documented as of this encounter Care Teams Rug Inspector Helper Relationship Specialty Start Date End Date Genevieve Gtz MD [address] [place] [address] PCP - General Internal Medicine 10/12/22 documented as of this encounter
--- OUTSIDE RECORDS SUMMARY | 2024-12-22 10:01 | XMS_ITS | Encounter Summary ---
Author Organization [employer] Address [address] [facility] 7t [place] [address] Care Team Providers Care Learning And Development Specialist Name Role Phone Genevieve Gtz MD Primary Care Pro vider Reason for Visit * Reason Onset Date Comments Med Refill 11/21/2024 Encounter Details Date Type Department Care Team ([facility] Contact Info) Description 11/21/2024 Telephone [facility] MEDICINE 230 [place] [address] Genevieve Gtz MD 230 [place], [place] [phone] Med Refill Social History Tobacco Use Types [...] release tablet To be sent to: - [facility]/pharmacy #[id number] documented in this encounter Plan of Treatment Upcoming Encounters Date Type Department Care Team ([facility] st Contact Info) Description 12/31/2024 10:00 AM EST Telemedicine [facility] MED & PEDS 505 [place] [address] Paola Thurston RN 505 [place] [address] 02/11/2025 2:45 PM EST Clinical Support [facility] MED & PEDS 505 [place] [address] Paola Thurston RN 505 [place] [address] documented as of this encounter Goals Goal [...] documented as of this encounter Care Teams Learning And Development Specialist Relationship Specialty Start Date End Date Genevieve Gtz MD [address] [place] [address] PCP - General Internal Medicine 10/12/22 documented as of this encounter
--- OUTSIDE RECORDS SUMMARY | 2024-12-22 10:01 | XMS_ITS | Encounter Summary ---
Author Organization [employer] Address [address] [facility] 7t [place] [address] Care Team Providers Care Outsole Compressor Name Role Phone Genevieve Gtz MD Primary Care Pro vider Reason for Visit * Reason Onset Date Comments Med Refill 06/20/2024 Encounter Details Date Type Department Care Team ([facility] Contact Info) Description 06/20/2024 Telephone [facility] MEDICINE 230 [place] [address] Genevieve Gtz MD 230 [place], [place] [phone] Med Refill Social History Tobacco Use Types [...] tablet To be sent to: [facility]/pharmacy #[id number] [place] [address] documented in this encounter Plan of Treatment Upcoming Encounters Date Type Department Care Team (Late st Contact Info) Description 12/31/2024 10:00 AM EST Telemedicine [facility] MED & PEDS 505 [place] [address] Paola Thurston RN 505 [place] [address] 02/11/2025 2:45 PM EST Clinical Support [facility] MED & PEDS 505 [place] [address] Paola Thurston RN 505 [place] [address] documented as of this encounter Goals Goal [...] documented as of this encounter Care Teams Outsole Compressor Relationship Specialty Start Date End Date Genevieve Gtz MD [address] [place] [address] PCP - General Internal Medicine 10/12/22 documented as of this encounter
--- OUTSIDE RECORDS SUMMARY | 2024-12-22 10:02 | XMS_ITS | Encounter Summary ---
Author Organization [employer] Address [address] [facility] 7t [place] [address] Care Team Providers Care Director Medicare Sales Name Role Phone Genevieve Gtz MD Primary Care Pro vider Reason for Visit * Reason Onset Date Comments Med Refill 12/04/2024 Encounter Details Date Type Department Care Team ([facility] Contact Info) Description 12/04/2024 Telephone [facility] MEDICINE 230 [place] [address] Genevieve Gtz MD 230 [place], [place] [phone] Med Refill Social History Tobacco Use Types [...] release tablet To be sent to: - [facility]/pharmacy #[id number] documented in this encounter Plan of Treatment Upcoming Encounters Date Type Department Care Team ([facility] st Contact Info) Description 12/31/2024 10:00 AM EST Telemedicine [facility] MED & PEDS 505 [place] [address] Paola Thurston RN 505 [place] [address] 02/11/2025 2:45 PM EST Clinical Support [facility] MED & PEDS 505 [place] [address] Paola Thurston RN 505 [place] [address] documented as of this encounter Goals Goal [...] as of this encounter Care Teams Director Medicare Sales Relationship Specialty Start Date End Date Genevieve Gtz MD [address] [place] [address] PCP - General Internal Medicine 10/12/22 documented as of this encounter
--- OUTSIDE RECORDS SUMMARY | 2024-12-22 10:02 | XMS_ITS | Encounter Summary ---
Author Organization [employer] Address [address] [facility] 7t [place] [address] Care Team Providers Care Utility Division Project Manager Name Role Phone Genevieve Gtz MD Primary Care Pro vider Reason for Visit * Reason Onset Date Comments Med Refill 12/05/2023 Encounter Details Date Type Department Care Team ([facility] Contact Info) Description 12/05/2023 Telephone [facility] MEDICINE 230 [place] [address] Genevieve Gtz MD 230 [place], [place] [phone] Med Refill Social History Tobacco Use Types [...] tablet To be sent to: [facility]/pharmacy #[id number] [place] [address] documented in this encounter Plan of Treatment Upcoming Encounters Date Type Department Care Team (Late st Contact Info) Description 12/31/2024 10:00 AM EST Telemedicine [facility] MED & PEDS 505 [place] [address] Paola Thurston RN 505 [place] [address] 02/11/2025 2:45 PM EST Clinical Support [facility] MED & PEDS 505 [place] [address] Paola Thurston RN 505 [place] [address] documented as of this encounter Goals Goal [...] documented as of this encounter Care Teams Utility Division Project Manager Relationship Specialty Start Date End Date Genevieve Gtz MD [address] [place] [address] PCP - General Internal Medicine 10/12/22 documented as of this encounter
--- OUTSIDE RECORDS SUMMARY | 2024-12-22 10:02 | XMS_ITS | Encounter Summary ---
Author Organization [employer] Address [address] [facility] 7t [place] [address] Care Team Providers Care Heel Builder Machine Name Role Phone Genevieve Gtz MD Primary Care Pro vider Reason for Visit * Reason Onset Date Comments FYI 08/08/2024 Encounter Details Date Type Department Care Team ([facility] Contact Info) Description 08/08/2024 Telephone [facility] MEDICINE 230 [place], [place] [phone] Genevieve Gtz MD 230 [place], [place] [phone] FYI Social History Tobacco Use Types Packs/Day [...] is your housing situation today? I have ktaya reinoso 09/20/[address] you [...] 11:13 AM EDT [facility] that patient was referred for VNA services for wound care.Patient declined services, stating she manages her wound care independently and obtains her own supplies. Helen just wanted FYI to PCP documented in this encounter Plan of Treatment Upcoming Encounters Date Type Department Care Team (Late st Contact Info) Description 12/31/2024 10:00 AM EST Telemedicine [facility] MED & PEDS 505 [place] [address] Paola Thurston RN 505 [place] [address] 02/11/2025 2:45 PM EST Clinical Support [facility] MED & PEDS 505 [place] [address] Paola Thurston RN 505 [place] [address] documented as of this encounter Goals Goal [...] documented as of this encounter Care Teams Heel Builder Machine Relationship Specialty Start Date End Date Genevieve Gtz MD [address] [place] [address] PCP - General Internal Medicine 10/12/22 documented as of this encounter
--- OUTSIDE RECORDS SUMMARY | 2024-12-22 10:02 | XMS_ITS | Encounter Summary ---
Author Organization [employer] Address [address] [place] [address] 7t [place] [address] Care Team Providers Care Brass Bobbin Winder Name Role Phone Carolina Hsu CLUB MANAGER Primary Care Provider Genevieve Wilson MD Primary Care Pro vider Encounter Details Date Type Department Care Team (Late Contact Info) Description 09/11/2022 Abstract [facility] MEDICINE 230 [place] [address] Carolina Hsu FNP Social History Tobacco Use [...] [facility] MED & PEDS 505 [place] [address] Paola Thurston RN 505 [place] [address] 02/11/2025 2:45 PM EST Clinical Support [facility] MED & PEDS 505 [place] [address] Paola Thurston RN 505 [place] [address] documented as of this encounter Visit Diagnoses Not on filedocumented in this encounter Care Teams Brass Bobbin Winder Relationship Specialty Start Date End Date Carolina Hsu FNP PCP - General Family Medicine 01/16/22 10/11/22 Genevieve Gtz MD [address] [place] [address] PCP - General Internal Medicine 10/12/22 documented as of this encounter
--- OUTSIDE RECORDS SUMMARY | 2024-12-22 10:02 | XMS_ITS | Encounter Summary ---
Author Organization [employer] Address [address] [facility] 7t [place] [address] Care Team Providers Care Recordak Operator Name Role Phone Genevieve Gtz MD Primary Care Pro vider Reason for Visit * Reason Onset Date Comments Med Refill 01/14/2024 Encounter Details Date Type Department Care Team ([facility] Contact Info) Description 01/14/2024 Telephone [facility] MEDICINE 230 [place] [address] Genevieve Gtz MD 230 [place], [place] [phone] Med Refill Social History Tobacco Use Types [...] any questions you can contact pt at [phone]. * Telephone Encounter - Noelle Rodrigues - 01/14/2024 11:29 AM EST TC from pt requesting medication refill. Medications needing refill : oxyCODONE (Roxicodone) 5 MG immediate release tablet To be sent to: [facility]/pharmacy #[address] [place] [address] documented in this encounter Plan of Treatment Upcoming Encounters Date Type Department Care Team (Late st Contact Info) Description 12/31/2024 10:00 AM EST Telemedicine [facility] MED & PEDS 505 [place] [address] Paola Thurston RN 505 [place] [address] 02/11/2025 2:45 PM EST Clinical Support [facility] MED & PEDS 505 [place] [address] Paola Thurston RN 505 [place] [address] documented as of this encounter Goals Goal [...] documented as of this encounter Care Teams Recordak Operator Relationship Specialty Start Date End Date Genevieve Gtz MD [address] [place] [address] PCP - General Internal Medicine 10/12/22 documented as of this encounter
--- OUTSIDE RECORDS SUMMARY | 2024-12-22 10:02 | XMS_ITS | Encounter Summary ---
Author Organization [employer] Address [address] [place] [address] 7t [place] [address] Care Team Providers Care Photography And Prints Curator Name Role Phone Carolina Hsu SEXUAL ASSAULT COUNSELLOR Primary Care Provider Genevieve Wilson MD Primary Care Pro vider Encounter Details Date Type Department Care Team (Late Contact Info) Description 09/11/2022 Abstract [facility] MEDICINE 230 [place] [address] Carolina Hsu FNP Social History Tobacco Use [...] [facility] 505 [place] [address] Paola Thurston RN 505 [place] [address] 02/11/2025 2:45 PM EST Clinical Support [facility] MED & PEDS 505 [place] [address] Paola Thurston RN 505 [place] [address] documented as of this encounter Visit Diagnoses Not on filedocumented in this encounter Care Teams Photography And Prints Curator Relationship Specialty Start Date End Date Carolina Hsu FNP PCP - General Family Medicine 01/16/22 10/11/22 Genevieve Gtz MD [address] [place] [address] PCP - General Internal Medicine 10/12/22 documented as of this encounter
--- OUTSIDE RECORDS SUMMARY | 2024-12-22 10:02 | XMS_ITS | Encounter Summary ---
Author Organization [employer] Address [address] [place] [address] [address] [place] [address] Care Team Providers Care Boat Outboard Engine Mechanic Name Role Phone Genevieve Gtz MD Primary Care Pro vider Reason for Visit * Reason Onset Date Comments Med Refill 10/26/2022 Encounter Details Date Type Department Care Team ([facility] st Contact Info) Description 10/26/2022 Telephone [facility] [address] [place], [place] [phone] Genevieve Gtz MD [address] [place], [place] [phone] Med Refill Social History Tobacco Use Types [...] medication oxycodone 5 mg. Please send to [facility]/pharmacy #[id number] - [place] - [address] Cool documented in this encounter Plan of Treatment Upcoming Encounters Date Type Department Care Team (Late st Contact Info) Description 12/31/2024 10:00 AM EST Telemedicine [facility] [address] [place] [address] Paola Thurston RN [address] [place] [address] 02/11/2025 2:45 PM EST Clinical Support [facility] [address] [place] [address] Paola Thurston RN [address] [place] [address] documented as of this encounter Visit Diagnoses Not on filedocumented in this encounter Additional Health Concerns Assessment Noted Time PHQ-9 Depression Total Score: 0 10/13/19 2:37 PM EDT documented as of this encounter Care Teams Boat Outboard Engine Mechanic Relationship Specialty Start Date End Date Genevieve Gtz MD [address] [place] [phone] PCP - General Internal Medicine 10/12/22 documented as of this encounter
--- OUTSIDE RECORDS SUMMARY | 2024-12-22 10:02 | XMS_ITS | Encounter Summary ---
Author Organization [employer] Address [address] [facility] [address] [place] [address] Care Team Providers Care Shale Miner Name Role Phone Genevieve Gtz MD Primary Care Pro vider Encounter Details Date Type Department Care Team ([facility] st Contact Info) Description 12/21/2024 Orders Only GENERIC EXTERNAL DATA DEPARTMENT Provider, [...] Upcoming Encounters Date Type Department Care Team ([facility] st Contact Info) Description 12/31/2024 10:00 AM EST Telemedicine [facility] [address] [place] [address] Paola Thurston RN [address] [place] [address] 02/11/2025 2:45 PM EST Clinical Support [facility] [address] [place] [address] Paola Thurston RN [address] [place] [address] documented as of this encounter Goals Goal Patient Goal Type Associated Problems Recent Progress Patient-Stated? Author Blood Pressure < 140/90 Blood Pressure 129/75(2024 9:08 AM EST) No Jaime Chilel Hemoglobin A1c < 8 Result Component 5.7( 9:45 AM EST) No Jaime Chilel documented as of this encounter Procedures Procedure Name Priority Date/Time Associated Diagnosis Comments CT CHEST WO CONTRAST Routine 12/21/2024 3:[address] ABDOMEN PELVIS WO CONTRAST Routine 12/21/2024 3:[address] HEAD WO CONTRAST Routine 12/21/2024 2 :58 PM EDT XR CHEST 1 VIEW Routine 12/21/2024 2:39 PM EDT CBC WITH AUTO DIFFERENTIAL Routine 12/21/2024 12:49 PM EDT TSH Routine 12/21/2024 12:49 PM EDT MAGNESIUM Routine 12/21/2024 12:49 PM EDT COMPREHENSIVE METABOLIC PANEL Routine 12/21/2024 12:49 PM EDT documented in this encounter Results * CT Chest w/o Contrast (12/21/2024 3:02 PM EDT) Anatomical Region Laterality Modality Body, Chest Computed Tomogra phy 12/21/2024 3:02 PM EDT Narrative 12/21/2024 3:04 PM EDT [place] [address] [address] Scan Report Signed Patient: Shereen Taylor MR#: [id number] : 1990 Acct:[id number] Age/Sex: 34 / F ADM Date: 12/21/24 Loc: HO.ED Attending Dr: Ordering Physician: Bonilla Villareal MD Date of Service: 12/21/24 Procedure(s): CT chest wo IV con Accession Number(s): [id number] cc: Bonilla Villareal MD; Genevieve Gtz MD Report Number: [id number]: Total DLP = 0.00 mGy-cm Reason for Exam: R sided chest CLINICAL HISTORY: R sided chest CT chest without contrast Comparison: CT/SR - CT ANGIO CHEST AORTA - 07/08/24 17:32 EDT Findings: Mild cardiomegaly. Right IJ central venous catheter tip is in the right atrium. Few subcentimeter mediastinal lymph nodes, favored to be reactive. Visualized thyroid gland is within normal limits. No consolidation or effusion. No acute findings in the visualized upper abdomen. No acute fractures. IMPRESSION: 1. No acute intrathoracic findings. This document has been electronically signed by: Marquita Pimentel MD on 12/21/2024 15:02:53 Dictated By: Marquita Pimentel MD Signed By: <Electronically signed by Marquita Pimentel MD in OV> 12/21/24 1503 DD/ 1502 TD/TT: 12/21/24 1502 Global Marketing Manager: Procedure Note Donotuseinterpreter, Image - 12/21/[address] [address] [address] Scan Report Signed Patient: Danna Taylor#: [id number] : 1990Acct:[id number] Age/Sex: 34 / FADM Date: 12/21/24 Loc: HO.ED Attending Dr: Ordering Physician: Bonilla Villareal MD Date of Service: 12/21/24 Procedure(s): CT chest wo IV con Accession Number(s): [id number] cc: Bonilla Villareal MD; Genevieve Gtz MD Report Number: [id number]: Total DLP = 0.00 mGy-cm Reason for Exam: R sided chest CLINICAL HISTORY: R sided chest CT chest without contrast Comparison: CT/SR - CT ANGIO CHEST AORTA - 07/08/24 17:32 EDT Findings: Mild cardiomegaly. Right IJ central venous catheter tip is in the right atrium. Few subcentimeter mediastinal lymph nodes, favored to be reactive. Visualized thyroid gland is within normal limits. No consolidation or effusion. No acute findings in the visualized upper abdomen. No acute fractures. IMPRESSION: 1. No acute intrathoracic findings. This document has been electronically signed by: Marquita Pimentel MD on 12/21/2024 15:02:53 Dictated By: Marquita Pimentel MD Signed By: <Electronically signed by Marquita Pimentel MD in OV> 12/21/24 1503 DD/ 1502 TD/TT: 12/21/24 1502 Global Marketing Manager: us [facility] External Provider IMG CT PROCEDURES Edited Result - Final * CT Abdomen Pelvis w/o Contrast (12/21/2024 3:02 PM EDT) Anatomical Region Laterality Modality Body, Pelvis, Abdomen Computed T omography 12/21/2024 3:02 PM EDT Narrative 12/21/2024 3:04 PM EDT [address] [address] [address] Scan Report Signed Patient: Shereen Taylor MR#: [id number] : 1990 Acct:[id number] Age/Sex: 34 / F ADM Date: 12/21/24 Loc: HO.ED Attending Dr: Ordering Physician: Bonilla Villareal MD Date of Service: 12/21/24 Procedure(s): CT abdomen pelvis wo IV con Accession Number(s): [id number] cc: Bonilla Villareal MD; Genevieve Gtz MD Report Number: [id number]: Total DLP = 2186.00 mGy-cm Reason for Exam: severe chest and abd pain, ESRD CLINICAL HISTORY: severe chest and abd pain, ESRD CT abdomen and pelvis without contrast Comparison: CT/SR - CT ANGIO ABD AORTA RUNOFF - 07/08/24 17:32 EDT Findings: No consolidation or effusion. Cholecystectomy. Mild pancreatic atrophy. Liver, spleen, and adrenal glands are within limits. Cortical atrophy of the kidneys. No hydronephrosis. Left renal cyst. No bowel obstruction, pneumatosis or pneumoperitoneum. Normal appendix. Atherosclerosis of the aorta and its branches. Mild diffuse urinary bladder wall thickening. The bones are intact. IMPRESSION: Mild diffuse urinary bladder wall thickening, correlate for cystitis. No other acute intraabdominal or pelvic findings. This document has been electronically signed by: Marquita Pimentel MD on 12/21/2024 15:02:30 Dictated By: Marquita Pimentel MD Signed By: <Electronically signed by Marquita Pimentel MD in OV> 12/21/24 1503 DD/ 1502 TD/TT: 12/21/24 1502 Global Marketing Manager: Procedure Note Donotuseinterpreter, Image - 12/21/[address] [address] [address] Scan Report Signed Patient: Christian TaylorR#: [id number] : 1990Acct:[id number] Age/Sex: 34 / FADM Date: 12/21/24 Loc: HO.ED Attending Dr: Ordering Physician: Bonilla Villareal MD Date of Service: 12/21/24 Procedure(s): CT abdomen pelvis wo IV con Accession Number(s): [id number] cc: Bonilla Villareal MD; Genevieve Gtz MD Report Number: [id number]: Total DLP = 2186.00 mGy-cm Reason for Exam: severe chest and abd pain, ESRD CLINICAL HISTORY: severe chest and abd pain, ESRD CT abdomen and pelvis without contrast Comparison: CT/SR - CT ANGIO ABD AORTA RUNOFF - 07/08/24 17:32 EDT Findings: No consolidation or effusion. Cholecystectomy. Mild pancreatic atrophy. Liver, spleen, and adrenal glands are within limits. Cortical atrophy of the kidneys. No hydronephrosis. Left renal cyst. No bowel obstruction, pneumatosis or pneumoperitoneum. Normal appendix. Atherosclerosis of the aorta and its branches. Mild diffuse urinary bladder wall thickening. The bones are intact. IMPRESSION: Mild diffuse urinary bladder wall thickening, correlate for cystitis. No other acute intraabdominal or pelvic findings. This document has been electronically signed by: Marquita Pimentel MD on 12/21/2024 15:02:30 Dictated By: Marquita Pimentel MD Signed By: <Electronically signed by Marquita Pimentel MD in OV> 12/21/24 1503 DD/ 1502 TD/TT: 12/21/24 1502 Global Marketing Manager: [facility] External Provider IMG CT PROCEDURES Edited Result - Final * CT Head w/o Contrast (12/21/2024 2:58 PM EDT) Anatomical Region Laterality Modality Head, Neck Computed Tomogra phy 12/21/2024 2:58 PM EDT Narrative 12/21/2024 3:01 PM EDT [place] [address] CT Scan Report Signed Patient: Shereen Taylor MR#: [id number] : 1990 Acct:[id number] Age/Sex: 34 / F ADM Date: 12/21/24 Loc: HO.ED Attending Dr: Ordering Physician: Bonilla Villareal MD Date of Service: 12/21/24 Procedure(s): CT head/brain wo IV con Accession Number(s): [id number] cc: Bonilla Villareal MD; Genevieve Gtz MD Report Number: [id number]: Total DLP = 0.00 mGy-cm Reason for Exam: R sided headache, severe CLINICAL HISTORY: R sided headache, severe CT head without contrast Comparison: MR - MR HEAD/BRAIN WO CON - 10/29/24 20:[address]/WI/SR - CT HEAD WITHOUT IV CONTRAST - 10/29/24 11:57 EDT Findings: No acute intracranial hemorrhage, transcortical infarct, hydrocephalus, or mass effect. Chronic encephalomalacia in the right cerebellum. Chronic lacunar infarct left thalamus. Intracranial atherosclerosis. There is no sinus or mastoid fluid. Chronic deformity of the right globe. No skull fracture. IMPRESSION: 1. No acute intracranial findings. This document has been electronically signed by: Marquita Pimentel MD on 12/21/2024 14:58:51 Dictated By: Marquita Pimentel MD Signed By: <Electronically signed by Marquita Pimentel MD in OV> 12/21/24 1500 DD/ 57 TD/TT: 12/21/241457 Global Marketing Manager: Procedure Note Donotuseinterpreter, Image - 12/21/[address] [place] [address] [address] Scan Report Signed Patient: Danna Taylor#: [id number] : 1990Acct:[id number] Age/Sex: 34 / FADM Date: 12/21/24 Loc: HO.ED Attending Dr: Ordering Physician: Bonilla Villareal MD Date of Service: 12/21/24 Procedure(s): CT head/brain wo IV con Accession Number(s): [id number] cc: Bonilla Villareal MD; Genevieve Gtz MD Report Number: [id number]: Total DLP = 0.00 mGy-cm Reason for Exam: R sided headache, severe CLINICAL HISTORY: R sided headache, severe CT head without contrast Comparison: MR - MR HEAD/BRAIN WO CON - 10/29/24 20:[address]/WI/SR - CT HEAD WITHOUT IV CONTRAST - 10/29/24 11:57 EDT Findings: No acute intracranial hemorrhage, transcortical infarct, hydrocephalus, or mass effect. Chronic encephalomalacia in the right cerebellum. Chronic lacunar infarct left thalamus. Intracranial atherosclerosis. There is no sinus or mastoid fluid. Chronic deformity of the right globe. No skull fracture. IMPRESSION: 1. No acute intracranial findings. This document has been electronically signed by: Marquita Pimentel MD on 12/21/2024 14:58:51 Dictated By: Marquita Pimentel MD Signed By: <Electronically signed by Marquita Pimentel MD in OV> 12/21/24 1500 DD/ 57 TD/TT: 12/21/241457 Global Marketing Manager: [facility] External Provider IMG CT PROCEDURES Edited Result - Final * XR Chest 1 View (12/21/2024 2:39 PM EDT) Anatomical Region Laterality Modality Chest Radiographic Vandana ging 12/21/2024 2:39 PM EDT Narrative 12/21/2024 2:41 PM EDT [place] [address] XRay Report Signed Patient: Shereen Taylor MR#: [id number] : 1990 Acct:[id number] Age/Sex: 34 / F ADM Date: 12/21/24 Loc: HO.ED Attending Dr: Ordering Physician: Bonilla Villareal MD Date of Service: 12/21/24 Procedure(s): XR chest 1V Accession Number(s): [id number] cc: Bonilla Villareal MD; Genevieve Gtz MD Reason for Exam: chest pain CLINICAL HISTORY: chest pain 1 view chest x-ray Comparison: CT/REG/SR - CT CHEST WO IV CON - 12/21/24 13:58 EDT CR - XR CHEST 1V - 09/04/24 22:12 EDT Findings: The lungs are clear. No pleural effusion or pneumothorax. Right IJ central venous catheter tip is in the right atrium. Cardiomegaly. No acute fracture. IMPRESSION: 1. No acute cardiopulmonary findings. This document has been electronically signed by: Marquita Pimentel MD on 12/21/2024 14:39:46 Dictated By: Marquita Pimentel MD Signed By: <Electronically signed by Marquita Pimentel MD in OV> 12/21/24 1440 DD/ 38 TD/TT: 12/21/241438 Global Marketing Manager: Procedure Note Donotuseinterpreter, Image - 12/21/[address] [address] XRay Report Signed Patient: Danna Taylor#: [id number] : 1990Acct:[id number] Age/Sex: 34 / FADM Date: 12/21/24 Loc: .ED Attending Dr: Ordering Physician: Bonilla Villareal MD Date of Service: 12/21/24 Procedure(s): XR chest 1V Accession Number(s): [id number] cc: Bonilla Villareal MD; Genevieve Gtz MD Reason for Exam: chest pain CLINICAL HISTORY: chest pain 1 view chest x-ray Comparison: CT/REG/SR - CT CHEST WO IV CON - 12/21/24 13:58 EDT CR - XR CHEST 1V - 09/04/24 22:12 EDT Findings: The lungs are clear. No pleural effusion or pneumothorax. Right IJ central venous catheter tip is in the right atrium. Cardiomegaly. No acute fracture. IMPRESSION: 1. No acute cardiopulmonary findings. This document has been electronically signed by: Marquita Pimentel MD on 12/21/2024 14:39:46 Dictated By: Marquita Pimentel MD Signed By: <Electronically signed by Marquita Pimentel MD in OV> 12/21/24 1440 DD/ 38 TD/TT: 12/21/241438 Global Marketing Manager: [facility] External Provider IMG XR PROCEDURES Edited Result - Final * TSH (12/21/2024 12:49 PM EDT) Thyroid Stimulating Hormone 1.18 0.32 - 4.0 uIU/mL [facility] Comment:TSH 3rd Generation ( [facility]) 12/21/2024 12:4 9 PM EDT 12/21/2024 12:51 PM EDT Generic External Data Provider LAB BLOOD ORDERAB LES Final Result Performing Organization Address [facility]/ZIP Co de Phone Number [facility] [address] [place] [phone] * Magnesium (12/21/2024 12:49 PM EDT) [facility] Magnesium 2.5 1.6 - 2.6 mg/dL [facility] 12/21/2024 12:4 9 PM EDT 12/21/2024 12:51 PM EDT Generic External Data Provider LAB BLOOD ORDERAB LES Final Result Performing Organization Address [facility] de Phone Number [facility] [address] [place] [phone] * (ABNORMAL) Comprehensive Metabolic Panel (12/21/2024 12:49 PM EDT) [facility] Sodium 137 135 - 145 mmol/L [facility] Potassium 6.2(HH) 3.3 - 5.1 mmol/L [facility] Comment:Critical value for t est(s): K Results called to and readback by: BRANDT Person calling: KUSFDate: 73-77-13Nlol:KUSF Chloride 102 96 - 108 mmol/L [facility] Carbon Dioxide 19(L) 22 - 29 mmol/L [facility] Anion Gap 22(H) 12 - 20 [facility] Urea Nitrogen (BUN) 85(H) 9 - 16 mg/dL [facility] Creatinine, Serum 11.49(HH) 0.5 - 1.4 mg/dL [facility] Comment:Critical value for t est(s): MARIE Results called to rhett back by: KIRT Person calling: JAMES Date:12-21-24 Time:1527 Creatinine Clr Calc Pharmacy 7.7 [facility] Comment:Provided height and weight: 165.1 cm,97.1 kg.eGFR (calculated from the MDRD study equation) and eCrCl(calculated from the Cockcroft-Gault equation) are based ondifferent parameters and may not yield comparable results.If eCrCl result is absurd, please check patient'sheight/weight. Estimated Glomerular Filt Rate 4 [facility] Comment:Chronic Kidney Disea se: Estimated GFR < 60 mL/min/1.71c9Czerij Kidney Disease: Estimated GFR < 15 mL/min/1.73m2 Glucose 76 60 - 115 mg/dL [facility] Calcium 8.1(L) 8.4 - 10.2 mg/dL [facility] Bilirubin, Total 0.8 0.0 - 1.0 mg/dL [facility] Aspartate Amino Transferase 30 5 - 31 U/L [facility] Alanine Aminotransferase 17 0 - 31 U/L [facility] Total Protein 7.6 6.5 - 8.0 g/dL [facility] Albumin Level 4.0 3.5 - 5.0 g/dL [facility] Alkaline Phosphatase 146(H) 39 - 117 U/L [facility] 12/21/2024 12:4 9 PM EDT 12/21/2024 12:51 PM EDT us Generic External Data Provider LAB BLOOD ORDERAB LES Final Result [facility] [address] [place] [address] [phone] * (ABNORMAL) CBC auto differential (12/21/2024 12:49 PM EDT) White Blood Count 5.5 4.8 - 10.8 X10*3/uL [facility] Red Blood Count 2.96(L) 4.20 - 5.50 X10*6/uL [facility] Hemoglobin 9.0(L) 12.0 - 16.0 g/dl [facility] Hematocrit 27.8(L) 37.0 - 47.0 % [facility] Mean Corpuscular Volume 93.9 80.0 - 98.0 fL [facility] Mean Corpuscular Hemoglobin 30.4 27.0 - 33.0 pg [facility] Mean Corpuscular HGB Conc 32.4 31.0 - 35.0 g/dl [facility] Red Cell Distribution Width 14.0 11.0 - 16.0 % [facility] Platelet Count 93(L) 160 - 400 X10*3/uL [facility] Mean Platelet Volume 11.1 9.4 - 12.3 fL [facility] Neutrophils Percent Auto 70.8 45 - 73 % [facility] Imm Gran Pct Auto 0.2 0.0 - 0.4 % [facility] Lymphocytes Percent Auto 12.7(L) 20 - 40 % [facility] Monocytes Percent Auto 11.1(H) 2 - 11 % [facility] Eosinophils Percent Auto 4.7(H) 0 - 4 % [facility] Basophils Percent Auto 0.5 0 - 2 % [facility] NRBC Pct Auto 0.0 0.0 - 0.2 /100WBC [facility] Neutrophils Absolute Auto 3.9 2.0 - 8.3 x10*3/uL [facility] Imm Gran Abs Auto 0.01 0.00 - 0.03 X10*3/uL [facility] Lymphocytes Absolute Auto 0.7(L) 1.2 - 4.9 X10*3/uL [facility] Monocytes Absolute Auto 0.6 0.1 - 1.2 X10*3/uL [facility] Eosinophils Absolute Auto 0.3 0.0 - 0.4 X10*3/uL [facility] Basophils Absolute Auto 0.0 0.0 - 0.2 X10*3/uL [facility] NRBC Abs Auto 0.000 0.0 - 0.012 X10*3/uL [facility] 12/21/2024 12:4 9 PM EDT 12/21/2024 12:51 PM EDT us Generic External Data Provider LAB BLOOD ORDERAB LES Final Result [facility] [address] [place] [phone] [phone] documented in this encounter Visit Diagnoses Not on filedocumented in this encounter Additional Health Concerns Assessment Noted Time PHQ-9 Depression Total Score: 0 10/23/19 24 2:23 PM EDT documented as of this encounter Care Teams Shale Miner Relationship Specialty Start Date End Date Genevieve Gtz MD [address] [place] [address] PCP - General Internal Medicine 10/12/22 documented as of this encounter
--- OUTSIDE RECORDS SUMMARY | 2024-12-22 10:02 | XMS_ITS | Clinical Summary ---
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) 09/04/2024 Ulcer of left second toe 09/04/2024 Vitreous detachment 09/04/2024 Volume overload 09/04/2024 Opioid dependence 09/04/2024 Seizure disorder ([facility]) 09/04/2024 Long-term current use of opiate analgesic 2024 Neurogenic bladder 03/07/2024 Bacteremia due to Pseudomonas 01/03/2024 Infection due to 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 Date Type Department Care Team Description 12/22/2024 Orders Only GENERIC EXTERNAL DATA DEPARTMENT Provider, Generic External Data 12/21/2024 Orders Only GENERIC EXTERNAL DATA DEPARTMENT Provider, Generic External Data 12/19/2024 Orders Only GENERIC EXTERNAL DATA DEPARTMENT Provider, Generic External Data 12/15/2024 Refill [facility] [address] [place] [address] Paola Thurston RN Chronic ulcer of left foot due to diabetes mellitus (HCC) 12/15/2024 Telephone [facility] [address] [place] [phone] Genevieve Gtz MD Med Refill 12/15/2024 Refill [facility] [address] [place] [phone] Genevieve Gtz MD Benign essential hypertension 12/10/2024 Orders Only [facility] External Provider, [facility] 12/09/2024 Orders Only GENERIC EXTERNAL DATA DEPARTMENT Provider, Generic External Data 12/04/2024 Refill [facility] [address] [place] [address] Paola [place]ston RN Chronic ulcer of left foot due to diabetes mellitus (HCC) 12/04/2024 Telephone [facility] [address] [place] [address] Genevieve Gtz MD Med Refill 12/01/2024 2:30 PM EDT Telemedicine [facility] [address] [place] [address] Paola Thurston, KIRIT Long-term current use of opiate analgesic 12/01/2024 Travel 11/25/2024 Telephone [facility] [address] [place] [phone] Genevieve Gtz MD chart prep 11/21/2024 Orders Only [facility] [address] [place] [phone] Genevieve Gtz MD Chronic ulcer of left foot due to diabetes mellitus ([facility]) 11/21/2024 Refill [facility] [address] [place] [address] Paola [place] RN Chronic ulcer of left foot due to diabetes mellitus ([facility]) 11/21/[address] [address] Genevieve Gtz MD Med Refill 11/20/2024 Telephone [facility] [address] [place] [address] Paola [place] RN 11/19/2024 3:15 PM EDT Clinical Support [facility] [address] [place] [address] Paola Thurston, KIRIT Long-term current use of opiate analgesic (Primary Dx) 11/19/2024 Orders Only [address] [address] Genevieve Gtz MD 11/19/2024 Telephone [facility] [address] [place] [address] Paola Thurston RN 11/19/2024 Travel 11/11/[address] [address] Genevieve Gtz MD Medication Question 11/10/2024 Patient Outreach [facility] [address] [place] [address] Genevieve Gtz MD Pre-visit Planning (HDF scheduled. ) 11/10/[address] [address] Genevieve Gtz MD telephone call 11/06/[address] [address] Genevieve Gtz MD FYI 10/24/2024 Travel 10/24/2024 Telephone [facility] [address] [place] [address] Paola [place]ston RN 10/23/2024 Refill [facility] [address] [place], [place] [phone] Paola Thurston, tool grinder operator surface ulcer of 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 (CMS/HCC); Chronic wound 10/23/2024 Telephone [facility] [address] [place] [address] Genevieve Gtz MD Med Refill 09/25/2024 Telephone [facility] [address] [place] [address] Genevieve Gtz MD chart prep from Last [...] [facility] [address] [place] [address] Paola Thurston RN [address] [place] [address] 02/11/2025 2:45 PM EST Clinical Support [facility] [address] [place] [address] Paola [place]ston RN [address] [place] [address] Health Maintenance Due Date Last Done Comments [...] Procedure Name Priority Date/Time Associated Diagnosis Comments XR FOOT 3+ VIEWS LEFT Routine 12/22/2024 9:35 AM EDT HOLD RED TOP Routine 12/22/2024 9:[address] CHEST WO CONTRAST Routine 12/21/2024 3:[address] ABDOMEN PELVIS WO CONTRAST Routine 12/21/2024 3:[address] HEAD WO CONTRAST Routine 12/21/2024 2 :58 PM EDT XR CHEST 1 VIEW Routine 12/21/2024 2:39 PM EDT TSH Routine 12/21/2024 12:49 PM EDT MAGNESIUM Routine 12/21/2024 12:49 PM EDT COMPREHENSIVE METABOLIC PANEL Routine 12/21/2024 12:49 PM EDT CBC WITH AUTO DIFFERENTIAL Routine 12/21/2024 12:49 PM EDT HOLD GREEN GEL Routine 12/19/2024 1:42 PM [...] Recently Relevant to Health Maintenance Results * XR Foot 3+ Views Left (12/22/2024 9:35 AM EDT) Anatomical Region Laterality Modality Lower Extremities, Foot Left Radiogra phic Imaging 12/22/2024 9:35 AM EDT Narrative 12/22/2024 10:00 AM EDT [address] [address] XRay Report Signed Patient: Shereen Taylor MR#: [id number] : 1990 Acct:[id number] Age/Sex: 34 / F ADM Date: 12/22/24 Loc: HO.ED Attending Dr: Ordering Physician: Urszula Garcia Date of Service: 12/22/24 Procedure(s): XR foot LT min 3V Accession Number(s): [id number] cc: Genevieve Gtz MD; Urszula Garcia Reason for Exam: r/o osteo/ draining wound EXAMINATION: XR FOOT, LEFT CLINICAL INFORMATION: r/o osteo/ draining wound COMPARISON: X-ray 12/09/2024 . MRI 12/11/2024 TECHNIQUE: 3 views of the left foot. FINDINGS: Status post transmetatarsal amputation. Redemonstrated is soft tissue wound laterally at the level of the proximal fifth metatarsal. Erosive changes in the fifth metatarsal base, appearing slightly worsened from previous. This is highly suspicious for osteomyelitis. This is evaluated on the previous MRI 12/11/2024. Redemonstrated is diffuse chronic changes of the second-fourth metatarsals and distal tarsals. Soft tissue swelling. No radiopaque foreign body seen. XR/XR foot LT min 3V IMPRESSION: 1. Lateral soft tissue wound at the level of the proximal fifth metatarsal. Erosive changes in the fifth metatarsal base, appearing more prominent as compared to previous, highly suspicious for osteomyelitis. This is better evaluated on the recent MRI of 12/11/2024. 2. Additional chronic changes as detailed above. Electronically signed by: Babak Cloud MD 12/22/2024 09:57 AM EDT Dictated By: Babak Cloud MD Signed By: <Electronically signed by Babak Cloud MD in OV> 12/22/2457 DD/ TD/TT: 12/22/24 0940 Computer Meteorologist: Procedure Note Donotuseinterpreter, Image - 12/22/[address] [address] XRay Report Signed Patient: Danna Taylor#: [id number] : 1990Acct:[id number] Age/Sex: 34 / FADM Date: 12/22/24 Loc: HO.ED Attending Dr: Ordering Physician: Urszula Garcia Date of Service: 12/22/24 Procedure(s): XR foot LT min 3V Accession Number(s): [id number] cc: Genevieve Gtz MD; Urszula Garcia Reason for Exam: r/o osteo/ draining wound EXAMINATION: XR FOOT, LEFT CLINICAL INFORMATION: r/o osteo/ draining wound COMPARISON: X-ray 12/09/2024 . MRI 12/11/2024 TECHNIQUE: 3 views of the left foot. FINDINGS: Status post transmetatarsal amputation. Redemonstrated is soft tissue wound laterally at the level of the proximal fifth metatarsal. Erosive changes in the fifth metatarsal base, appearing slightly worsened from previous. This is highly suspicious for osteomyelitis. This is evaluated on the previous MRI 12/11/2024. Redemonstrated is diffuse chronic changes of the second-fourth metatarsals and distal tarsals. Soft tissue swelling. No radiopaque foreign body seen. XR/XR foot LT min 3V IMPRESSION: 1. Lateral soft tissue wound at the level of the proximal fifth metatarsal. Erosive changes in the fifth metatarsal base, appearing more prominent as compared to previous, highly suspicious for osteomyelitis. This is better evaluated on the recent MRI of 12/11/2024. 2. Additional chronic changes as detailed above. Electronically signed by: Babak Cloud MD 12/22/2024 09:57 AM EDT Dictated By: Babak Cloud MD Signed By: <Electronically signed by Babak Cloud MD in OV> 12/22/2457 DD/ 4 TD/TT: 12/22/24939 Computer Meteorologist: CRISTI [facility] External Provider IMG XR PROCEDURES Edited Result - Final * Hold Red (12/22/2024 9:22 AM EDT) Hold Red See Note [facility] Comment:Specimen held untest ed for 24 hours; Call to requestChemistry testing. 12/22/2024 9:22 AM EDT 12/22/2024 9:49 AM EDT Generic External Data Provider LAB BLOOD ORDERAB LES Final Result [facility] [address] [place] [phone] * CT Chest w/o Contrast (12/21/2024 3:02 PM EDT) Anatomical Region Laterality Modality Body, Chest Computed Tomogra phy 12/21/2024 3:02 PM EDT Narrative 12/21/2024 3:04 PM EDT [address] [address] [address] Scan Report Signed Patient: Shereen Taylor MR#: [id number] : 1990 Acct:[id number] Age/Sex: 34 / F ADM Date: 12/21/24 Loc: .ED Attending Dr: Ordering Physician: Bonilla Villareal MD Date of Service: 12/21/24 Procedure(s): CT chest wo IV con Accession Number(s): [id number] cc: Bonilla Villareal MD; Genevieve Gtz MD Report Number: [id number]: Total DLP = 0.00 mGy-cm Reason for [...] 12/21/24 1503 DD/ 1502 TD/TT: 12/21/24 1502 Computer Meteorologist: Procedure Note Donotuseinterpreter, Image - 12/21/[address] [address] [address] Scan Report Signed Patient: Christian TaylorR#: [id number] : 1990Acct:[id number] Age/Sex: 34 / FADM Date: 12/21/24 Loc: HO.ED Attending Dr: Ordering Physician: Bonilla Villareal MD Date of Service: 12/21/24 Procedure(s): CT chest wo IV con Accession Number(s): [id number] cc: Bonilla Villareal MD; Genevieve Gtz MD Report Number: [id number]: Total DLP = 0.00 mGy-cm Reason for [...] 12/21/24 1503 DD/ 1502 TD/TT: 12/21/24 1502 Computer Meteorologist: [facility] External Provider IMG CT PROCEDURES Edited Result - Final * CT Abdomen Pelvis w/o Contrast (12/21/2024 3:02 PM EDT) Anatomical Region Laterality Modality Body, Pelvis, Abdomen Computed T omography 12/21/2024 3:02 PM EDT Narrative 12/21/2024 3:04 PM EDT [address] [address] [address] Scan Report Signed Patient: Shereen Taylor MR#: [id number] : 1990 Acct:[id number] Age/Sex: 34 / F ADM Date: 12/21/24 Loc: HO.ED Attending Dr: Ordering Physician: Bonilla Villareal MD Date of Service: 12/21/24 Procedure(s): CT abdomen pelvis wo IV con Accession Number(s): [id number] cc: Bonilla Villareal MD; Genevieve Gtz MD Report Number: [id number]: Total DLP = 2186.00 mGy-cm Reason for [...] 12/21/24 1503 DD/ 1502 TD/TT: 12/21/24 1502 Computer Meteorologist: Procedure Note Donotuseinterpreter, Image - 12/21/[address] [place] [address] [address] Scan Report Signed Patient: Danna Taylor#: [id number] : 1990Acct:[id number] Age/Sex: 34 / FADM Date: 12/21/24 Loc: HO.ED Attending Dr: Ordering Physician: Bonilla Villareal MD Date of Service: 12/21/24 Procedure(s): CT abdomen pelvis wo IV con Accession Number(s): [id number] cc: Bonilla Villareal MD; Genevieve Gtz MD Report Number: [id number]: Total DLP = 2186.00 mGy-cm Reason for [...] 12/21/24 1503 DD/ 1502 TD/TT: 12/21/24 1502 Computer Meteorologist: [facility] External Provider IMG CT PROCEDURES Edited Result - Final * CT Head w/o Contrast (12/21/2024 2:58 PM EDT) Anatomical Region Laterality Modality Head, Neck Computed Tomogra phy 12/21/2024 2:5 8 PM EDT Narrative 12/21/2024 3:01 PM EDT [place] [address] CT Scan Report Signed Patient: Shereen Taylor MR#: [id number] : 1990 Acct:[id number] Age/Sex: 34 / F ADM Date: 12/21/24 Loc: HO.ED Attending Dr: Ordering Physician: Bonilla Villareal MD Date of Service: 12/21/24 Procedure(s): CT head/brain wo IV con Accession Number(s): [id number] cc: Bonilla Villareal MD; Genevieve Gtz MD Report Number: [id number]: Total DLP = 0.00 mGy-cm Reason for Exam: R sided headache, severe CLINICAL HISTORY: R sided headache, severe CT head without contrast Comparison: MR - MR HEAD/BRAIN WO CON - 10/29/24 20:[address]/TX/SR - CT HEAD WITHOUT IV CONTRAST - [...] OV> 12/21/24 1500 DD/ 57 TD/TT: 12/21/241457 Computer Meteorologist: Procedure Note Donotuseinterpreter, Image - 12/21/[address] [place] [address] [address] Scan Report Signed Patient: Danna Taylor#: [id number] : 1990Acct:[id number] Age/Sex: 34 / FADM Date: 12/21/24 Loc: HO.ED Attending Dr: Ordering Physician: Bonilla Villareal MD Date of Service: 12/21/24 Procedure(s): CT head/brain wo IV con Accession Number(s): [id number] cc: Bonilla Villareal MD; Genevieve Gtz MD Report Number: [id number]: Total DLP = 0.00 mGy-cm Reason for Exam: R sided headache, severe CLINICAL HISTORY: R sided headache, severe CT head without contrast Comparison: MR - MR HEAD/BRAIN WO CON - 10/29/24 20:[address]/TX/SR - CT HEAD WITHOUT IV CONTRAST - [...] OV> 12/21/24 1500 DD/ 57 TD/TT: 12/21/241457 Computer Meteorologist: [facility] External Provider IMG CT PROCEDURES Edited Result - Final * XR Chest 1 View (12/21/2024 2:39 PM EDT) Anatomical Region Laterality Modality Chest Radiographic Vandana ging 12/21/2024 2:39 PM EDT Narrative 12/21/2024 2:41 PM EDT [place] [address] XRay Report Signed Patient: Shereen Taylor MR#: [id number] : 1990 Acct:[id number] Age/Sex: 34 / F ADM Date: 12/21/24 Loc: HO.ED Attending Dr: Ordering Physician: Bonilla Villareal MD Date of Service: 12/21/24 Procedure(s): XR chest 1V Accession Number(s): [id number] cc: Bonilla Villareal MD; Genevieve Gtz MD [...] OV> 12/21/24 1440 DD/ 38 TD/TT: 12/21/241438 Computer Meteorologist: Procedure Note Morenoshirleymeghan, Image - 12/21/2024 [place] [address] XRay Report Signed Patient: Danna Taylor#: [id number] : 1990Acct:[id number] Age/Sex: 34 / FADM Date: 12/21/24 Loc: HO.ED Attending Dr: Ordering Physician: Bonilla Villareal MD Date of Service: 12/21/24 Procedure(s): XR chest 1V Accession Number(s): [id number] cc: Bonilla Villareal MD; Genevieve Gtz MD [...] Pimentel MD in OV> 12/21/24 1440 DD/ 143 TD/TT: 12/21/241438 Computer Meteorologist: [facility] External Provider IMG XR PROCEDURES Edited Result - Final * (ABNORMAL) CBC auto differential (12/21/2024 12:49 PM EDT) Only the most recent of3 resultswithin the time period is included. White Blood Count 5.5 4.8 - 10.8 X10*3/uL [facility] Red Blood Count 2.96(L) 4.20 - 5.50 X10*6/uL [facility] Hemoglobin 9.0(L) 12.0 - 16.0 g/dl [facility] Hematocrit 27.8(L) 37.0 - 47.0 % [facility] Mean Corpuscular Volume 93.9 80.0 - 98.0 fL [facility] Mean Corpuscular Hemoglobin 30.4 27.0 - 33.0 pg [facility] Mean Corpuscular HGB Conc 32.4 31.0 - 35.0 g/dl [facility] Red Cell Distribution Width 14.0 11.0 - 16.0 % [facility] Platelet Count 93(L) 160 - 400 X10*3/uL [facility] Mean Platelet Volume 11.1 9.4 - 12.3 fL [facility] Neutrophils Percent Auto 70.8 45 - 73 % [facility] Imm Gran Pct Auto 0.2 0.0 - 0.4 % [facility] Lymphocytes Percent Auto 12.7(L) 20 - 40 % [facility] Monocytes Percent Auto 11.1(H) 2 - 11 % [facility] Eosinophils Percent Auto 4.7(H) 0 - 4 % [facility] Basophils Percent Auto 0.5 0 - 2 % [facility] NRBC Pct Auto 0.0 0.0 - 0.2 /100WBC [facility] Neutrophils Absolute Auto 3.9 2.0 - 8.3 x10*3/uL [facility] Imm Gran Abs Auto 0.01 0.00 - 0.03 X10*3/uL [facility] Lymphocytes Absolute Auto 0.7(L) 1.2 - 4.9 X10*3/uL [facility] Monocytes Absolute Auto 0.6 0.1 - 1.2 X10*3/uL [facility] Eosinophils Absolute Auto 0.3 0.0 - 0.4 X10*3/uL [facility] Basophils Absolute Auto 0.0 0.0 - 0.2 X10*3/uL [facility] NRBC Abs Auto 0.000 0.0 - 0.012 X10*3/uL [facility] 12/21/2024 12:4 9 PM EDT 12/21/2024 12:51 PM EDT Generic External Data Provider LAB BLOOD ORDERAB LES Final Result Performing Organization Address [facility]/ZIP Co de Phone Number [facility] [address] [place] [phone] * TSH (12/21/2024 12:49 PM EDT) Thyroid Stimulating Hormone 1.18 0.32 - 4.0 uIU/mL [facility] Comment:TSH 3rd Generation ( [facility]) 12/21/2024 12:4 9 PM EDT 12/21/2024 12:51 PM EDT Generic External Data Provider LAB BLOOD ORDERAB LES Final Result Performing Organization Address [facility] Co de Phone Number [facility] [address] [place] [phone] * Magnesium (12/21/2024 12:49 PM EDT) Only the most recent of2 resultswithin the time period is included. Magnesium 2.5 1.6 - 2.6 mg/dL [facility] 12/21/2024 12:4 9 PM EDT 12/21/2024 12:51 PM EDT Generic External Data Provider LAB BLOOD ORDERAB LES Final Result Performing Organization Address [facility] de Phone Number [facility] [address] [place] [phone] * (ABNORMAL) Comprehensive Metabolic Panel (12/21/2024 12:49 PM EDT) Only the most recent of3 resultswithin the time period is included. Sodium 137 135 - 145 mmol/L [facility] Potassium 6.2(HH) 3.3 - 5.1 mmol/L [facility] Comment:Critical value for t est(s): K Results called to and readback by: BRANDT Person calling: KUProsperFDate: [id number]:KUSF Chloride 102 96 - 108 mmol/L [facility] Carbon Dioxide 19(L) 22 - 29 mmol/L [facility] Anion Gap 22(H) 12 - 20 [facility] Urea Nitrogen (BUN) 85(H) 9 - 16 mg/dL [facility] Creatinine, Serum 11.49(HH) 0.5 - 1.4 mg/dL [facility] Comment:Critical value for t est(s): MARIE Results called to andread back by: KIRT Person calling: MELVINSF Date:12-21-24 Time:1527 Creatinine Clr Calc Pharmacy 7.7 [facility] Comment:Provided height and weight: 165.1 cm,97.1 kg.eGFR (calculated from the MDRD study equation) and eCrCl(calculated from the Cockcroft-Gault equation) are based ondifferent parameters and may not yield comparable results.If eCrCl result is absurd, please check patient'sheight/weight. Estimated Glomerular Filt Rate 4 [facility] Comment:Chronic Kidney Disea se: Estimated GFR < 60 mL/min/1.61u3Zonnrs Kidney Disease: Estimated GFR < 15 mL/min/1.73m2 Glucose 76 60 - 115 mg/dL [facility] Calcium 8.1(L) 8.4 - 10.2 mg/dL [facility] Bilirubin, Total 0.8 0.0 - 1.0 mg/dL [facility] Aspartate Amino Transferase 30 5 - 31 U/L [facility] Alanine Aminotransferase 17 0 - 31 U/L [facility] Total Protein 7.6 6.5 - 8.0 g/dL [facility] Albumin Level 4.0 3.5 - 5.0 g/dL [facility] Alkaline Phosphatase 146(H) 39 - 117 U/L [facility] 12/21/2024 12:4 9 PM EDT 12/21/2024 12:51 PM EDT Generic External Data Provider LAB BLOOD ORDERAB LES Final Result Performing Organization Address [facility] Co de Phone Number [facility] [address] [place] [phone] * Hold Green Gel (12/19/2024 1:42 PM EDT) Hold Green Gel See Note [facility] Comment:Specimen held untest ed for 24 hours; Call to requestChemistry testing. 12/19/2024 1:42 PM EDT 12/19/2024 1:49 PM EDT Generic External Data Provider HISTORICAL/NON OR DERABLE LABS Final Result Performing Organization Address [facility] de Phone Number [facility] [address] [place] [phone] * Partial Thromboplastin Time, Activated (APTT) (12/19/2024 1:33 PM EDT) Partial Thromboplastin Time 34.0 26.7 - 34.1 SEC [facility] 12/19/2024 1:33 PM EDT 12/19/2024 1:36 PM EDT Generic External Data Provider LAB BLOOD ORDERAB LES Final Result Performing Organization Address [facility] Co de Phone Number [facility] [address] [place] [phone] * (ABNORMAL) Sed Rate by Modified Axelren (12/19/2024 1:33 PM EDT) Only the most recent of2 resultswithin the time period is included. Erythrocyte Sedimentation Rate 54(H) 0 - 20 MM/HR [facility] Comment:Patients with polycy themia and many hemoglobin abnormalitiesmay have depressed sed rates whereas patients with anemiamay have elevated sed rates. 12/19/2024 1:33 PM EDT 12/19/2024 1:36 PM EDT Generic External Data Provider LAB BLOOD ORDERAB LES Final Result Performing Organization Address [facility] Co de Phone Number [facility] [address] [place] [phone] * (ABNORMAL) C-reactive Protein (12/19/2024 1:33 PM EDT) C Reactive Protein 0.84(H) < or = 0.50 mg/dL [facility] 12/19/2024 1:33 PM EDT 12/19/2024 1:36 PM EDT Generic External Data Provider LAB BLOOD ORDERAB LES Final Result Performing Organization Address [facility] Co vt Phone Number [facility] [address] [place] [phone] * Lipase (12/19/2024 1:33 PM EDT) Only the most recent of2 resultswithin the time period is included. Lipase 37 8 - 78 U/L [facility] 12/19/2024 1:33 PM EDT 12/19/2024 1:36 PM EDT Generic External Data Provider LAB BLOOD ORDERAB LES Final Result Performing Organization Address [facility] de Phone Number [facility] [address] [place] [phone] * Lactic Acid (12/19/2024 1:33 PM EDT) Only the most recent of2 resultswithin the time period is included. Lactic Acid 1.9 0.5 - 2.0 mmol/L [facility] 12/19/2024 1:33 PM EDT 12/19/2024 1:36 PM EDT us Generic External Data Provider LAB BLOOD ORDERAB LES Final Result [facility] [address] [place] [phone] * MR Foot w and w/o Contrast Left (12/11/2024 12:21 PM EDT) Anatomical Region Laterality Modality Lower Extremities, Foot Left Magnetic Resonance 12/11/2024 12:2 1 PM EDT Narrative 12/11/2024 2:14 PM EDT [address] [address] Magnetic Resonance Report Signed Patient: Shereen Taylor MR#: [id number] : 1990 Acct:[id number] Age/Sex: 34 / F ADM Date: 12/10/24 Loc: .S3 361-[address]: Ellen Frankel MD Ordering Physician: Lele Allan MD Date of Service: 12/11/24 Procedure(s): MR foot LT wo/w con Accession Number(s): [id number] cc: Lele Allan MD; Genevieve Gtz MD [...] 12/11/24 1411 DD/ 1221 TD/TT: 12/11/24 1310 Computer Meteorologist: CRISTI Procedure Note Donotuseinterpreter, Image - 12/11/2024 [place] [address] Magnetic Resonance Report Signed Patient: Danna Taylor#: [id number] : 1990Acct:[id number] Age/Sex: 34 / FADM Date: 12/10/24 Loc: HO.S3 361-[address]: Ellen Frankel MD Ordering Physician: Lele Allan MD Date of Service: 12/11/24 Procedure(s): MR foot LT wo/w con Accession Number(s): [id number] cc: Lele Allan MD; Genevieve Gtz MD [...] 12/11/24 1411 DD/ 1221 TD/TT: 12/11/24 1310 Computer Meteorologist: CRISTI [facility] External Provider IMG MRI PROCEDURES Final Result * XR Foot 1-2 Views Left (12/09/2024 8:38 PM EDT) Anatomical Region Laterality Modality Lower Extremities, Foot Left Radiogra phic Imaging 12/09/2024 8:38 PM EDT Narrative 12/09/2024 8:42 PM EDT [place] [address] XRay Report Signed Patient: Shereen Taylor MR#: [id number] : 1990 Acct:[id number] Age/Sex: 34 / F ADM Date: 12/09/24 Loc: HO.ED Attending Dr: Ordering Physician: Generic ED Physician Date of Service: 12/09/24 Procedure(s): XR foot LT 2V Accession Number(s): [id number] cc: Generic ED Physician; Genevieve Gtz MD [...] in OV> 12/09/242039 DD/ 37 TD/TT: 12/09/242037 Computer Meteorologist: Procedure Note Donotsenaitinterpreter, Image - 12/09/2024 [place] [address] XRay Report Signed Patient: Danna Taylor#: [id number] : 1990Acct:[id number] Age/Sex: 34 / FADM Date: 12/09/24 Loc: .ED Attending Dr: Ordering Physician: Generic ED Physician Date of Service: 12/09/24 Procedure(s): XR foot LT 2V Accession Number(s): [id number] cc: Generic ED Physician; Genevieve Gtz MD [...] in OV> 12/09/242039 DD/ 37 TD/TT: 12/09/242037 Computer Meteorologist: [facility] External Provider IMG XR PROCEDURES Final Result * (ABNORMAL) High Sensitivity Troponin I (12/09/2024 7:08 PM EDT) TROPONIN I HIGH SENSITIVITY 63.4(HH) <3.5 - 17.0 ng/L [facility] Comment:Critical value for t [...] ORDERAB LES Final Result Performing Organization Address [facility] de Phone Number [facility] [address] [place] [phone] * (ABNORMAL) Prothrombin Time-INR (12/09/2024 7:08 PM EDT) Prothrombin Time 12.7(H) 10.9 - 12.4 SEC [facility] INTERNATIONAL NORM RATIO 1.1 0.9 - 1.1 [facility] Comment:INTERNATIONAL NORMAL IZED RATIO (INR) [...] ORDERAB LES Final Result Performing Organization Address [facility] Co de Phone Number [facility] [address] [place] [phone] * Hepatic Function Panel (12/09/2024 7:08 PM EDT) Bilirubin, Direct 0.3 0.0 - 0.5 mg/dL [facility] 12/09/2024 7:08 PM EDT 12/09/2024 7:13 PM EDT us Generic External Data Provider LAB BLOOD ORDERAB LES Final Result [facility] [address] [place] [phone] * Drug Toxicology Monitoring Base Panel, w/Confirmation, Oral Fluid (11/19/2024 12:00 AM EDT) [facility] Drug Tox Panel with Confirmation SEE NOTE [facility] Comment: Test Ordered Result Cutoff [...] Negative 5.0 ng/mLFor additional information, please refer tohttp://education.[employer]ell[employer]/faq/UDH202 (This linkis being provided for informational/ educational purposesonly.) This drug testing is for medical treatment only.Analysis was performed as non-forensic testing and theseresults should be used only by healthcare providers torender diagnosis or treatment, or to monitor progress ofmedical conditions. For assistance with interpreting thesedrug results, please contact a [employer] ToxicologySpecialist: [phone] ( ), M-F, 8am-6pmEST. These tests were developed and their analyticalperformance characteristics have beendetermined by [employer]. They have not been clearedor a pproved by the FDA. These assays have been validatedpursuant to the CLIA regulations and are used for clinicalpurposes. PERFO RMING SITE:[email or web address], [address] [place] [phone] Eyewear Manufacturing Tech: KORIN TRUONG MD,PHD, CLIA: [id number] 11/19/2024 11/19/2024 Genevieve Casillas MD LAB BODY FLUIDS A ND STOOLS ORDERABLES Final Result [facility] [address] [place] [phone] * Hepatitis C Antibody with Reflex to HCV, RNA, Quantitative, Real-Time PCR (03/07/2024 9:45 AM EST) Hepatitis C Antibody Nonreactive Nonreactive [facility] Comment:Antibodies to HCV no t detected; does not exclude early acuteHCV infection. Blood Venous blood specimen / Unknown 03/07/2024 9:45 AM EST 03/07/2024 11:34 AM EST Genevieve Casillas MD LAB BLOOD ORDERAB LES Final Result Performing Organization Address City/[facility]/ZIP Co de Phone Number [facility] [address] [place] [phone] * HIV-1/2 Antigen and Antibodies, Fourth Generation, with Reflexes (03/07/2024 9:45 AM EST) HIV AB/AG Nonreactive Nonreactive [facility] Comment:HIV-1 p24 Ag and/or HIV-1/HIV-2 Ab not detected.A test result that is nonreactive does not exclude thepossibility of exposure to or infection with HIV-1 and/orHIV-2. Nonreactive results in this assay for individualswith prior exposure to HIV-1 and/or HIV-2 may be due toantigen and antibody levels that are below the limit ofdetection of this assay.The [employer] HIV Ag/Ab Combo assay result andsupplemental assay results should be interpreted inconjunction with the patient's clinical presentation,history and other laboratory results. If the results areinconsistent with clinical evidence, additional testing issuggested to confirm the result. Blood Venous blood specimen / Unknown 03/07/2024 9:45 AM EST 03/07/2024 11:34 AM EST us Genevieve Casillas MD LAB BLOOD ORDERAB LES Final Result Performing Organization Address [facility]/ZIP Co de Phone Number [facility] [address] [place] [phone] * Hemoglobin A1c (03/07/2024 9:45 AM EST) Hemoglobin A1c 5.7 <6.0 % [facility] Comment:Hemoglobin A1C Refer ence Range Adults: 4.8 - 6.0 % Non diabetic: < 6.0 % Goal: < 7.0 %Additional Action Suggested: > 8.0 %Note: Hemoglobin A1c results are invalid for patients with abnormal amounts of HbF. Blood transfusions may impact the HbA1c concentration in the patient sample. Estimated Average Glucose 117 mg/dL [facility] Comment:eAG = Estimated ave rage glucose which is %A1C expressed asaverage glucose, using the formula of the X9X-ZduhovsSszocem Glucose study (ADAG), Diabetes Care, Vol.31,#8,Sep. 2007 Blood Venous blood specimen / Unknown 03/07/2024 9:45 AM EST 03/07/2024 11:34 AM EST us Genevieve Casillas MD LAB BLOOD ORDERAB LES Final Result Performing Organization Address [facility] Co de Phone Number [facility] [address] [place] [phone] * (ABNORMAL) Lipid Panel, Standard (03/07/2024 9:45 AM EST) Triglycerides 36 <150 mg/dL [facility] Comment:Desirable Triglyceri de: less than 150 mg/dLBorderline High Triglyceride 150-199 mg/dLHigh Triglyceride: 200-499 mg/dLVery High Triglyceride: greater than or equal to 5OO mg/dL Cholesterol 107 <200 mg/dL [facility] Comment:Desirable Cholestero l: less than 200 mg/dLBorderline High Cholesterol: 200-239 mg/dLHigh Cholesterol: greater than 239 mg/dL LDL Cholesterol Calculated 65 <100 mg/dL [facility] Comment:Desirable LDL: less than 100 mg/dLNear Optimal/Above Optimal LDL: 110- 129 mg/dLBorderline High LDL: 130-159 mg/dLHigh LDL: 160-189 mg/dLVery High LDL: greater than or equal to 190 mg/dL HDL Cholesterol 35(L) >40 mg/dL [facility] Comment:Desirable HDL: great er than 40 mg/dL Note: This HDL assay may give artificially low results in patients with liver disease. Blood Venous blood specimen / Unknown 03/07/2024 9:45 AM EST 03/07/2024 11:34 AM EST us Genevieve Csaillas MD LAB BLOOD ORDERAB LES Final Result Performing Organization Address City[facility]/ZIP Co de Phone Number [facility] [address] [place] [phone] from Last 3 Months or Most Recently Relevant to Health Maintenance Insurance [facility] < 65 [place] [id number] Care Teams Picker And Sorter Load And Unload Relationship Specialty Start Date End Date Genevieve Gtz MD [address] [place] [address] PCP - General Internal Medicine 10/12/22
--- OUTSIDE RECORDS SUMMARY | 2024-12-22 10:03 | XMS_ITS | Encounter Summary ---
Author Organization [facility] Address [address] [place] [address] Phone Care Team Providers Care Global Climate Change Researcher Name Role Phone Genevieve Gtz MD Primary Care Pro vider Encounter Details Date Type Department Care Team ([facility] Contact Info) Description 12/21/2024 Home Care Visit [facility] [address] [place] [phone] Becca Saenz, KIRIT [address] [place] [address] [email or web address] CASE COMMUNICATION Social History Tobacco Use [...] on filedocumented in this encounter Care Teams Global Climate Change Researcher Relationship Specialty Start Date End Date Genevieve Gtz MD [address] [place] [address] [phone] PCP - General Internal Medicine 11/06/24 documented as of this encounter Additional Source Comments The information contained in this document represents components of the legal health record. It is not the complete legal health record.[facility]
--- OUTSIDE RECORDS SUMMARY | 2024-12-22 10:03 | XMS_ITS | Encounter Summary ---
Author Organization [facility] Address [address] [place] [phone] Phone Care Team Providers Care Environmental Health Nurse Name Role Phone EmilyAlyssa hutchinson Primary Care Provider Unava ilable Encounter Details Date Type Department Care Team (Late st Contact Info) Description 07/08/2024 TCM in Dialysis Clinic [facility] [address] [phone] Placido Carver MD [address] [phone] Social History Tobacco Use Types [...] 07/08/2024 The patient was seen for a byhq-zl-fanf visit as part of Transitional Care Management services. Attending Shoe Ironer: PLACIDO CARVER MD Dialysis Location: [facility] Schedule: Shift: 2 INTERACTIVE CONTACT [...] - No ulcers. VISIT DIAGNOSES CPT Code 40125 - High complexity, seen within 7 days of discharge. N18.6 End stage renal disease Signed by: PLACIDO CARVER MD on 07/26/2024 at 02:13:33 PM Transcribed by: PLACIDO CARVER MD on 07/26/2024 at 02:13:33 PM documented in this encounter Plan of Treatment Not on file documented as of this encounter Visit Diagnoses Not on filedocumented in this encounter Care Teams Environmental Health Nurse Relationship Specialty Start Date End Date Alyssa Manzano DO [address] [place] [address] PCP - General Family Medicine 03/02/21 documented as of this encounter
--- OUTSIDE RECORDS SUMMARY | 2024-12-22 10:03 | XMS_ITS | Clinical Summary ---
Author Organization [address] [place] [address] Address [address] [place] [address] Phone Care Team Providers Care Braiding Machine Operator Name Role Phone Betty Nugent MD Primary Care Provider [phone] Surgical History Surgery Date Site/Laterality Comments SECTION [...] complete this topic Insurance MEDICAID - [place] [facility] Member Subscriber Plan / Payer (Ef fective 2023-Present) Name:ROWAN MULTANI Relation to Subscriber:Self Name:Rowan Multani Payer ID:[id number] Group ID:[id number] Type:Not on file Address: [address] [place] [phone] Care Teams Braiding Machine Operator Relationship Specialty Start Date End Date Betty Nugent MD [address] [place] [address] PCP - General Internal Medicine 01/10/18
--- OUTSIDE RECORDS SUMMARY | 2024-12-22 10:03 | XMS_ITS | Encounter Summary ---
Author Organization [employer] Address [address] [facility] 7t [place] [address] Care Team Providers Care Second Hand Paper Machine Name Role Phone Genevieve Gtz MD Primary Care Pro vider Reason for Visit * Reason Onset Date Comments Med Refill 12/19/2023 Encounter Details Date Type Department Care Team ([facility] Contact Info) Description 12/19/2023 Telephone [facility] [address] [place] [address] Genevieve Gtz MD [address] [place], [place] [phone] Med Refill Social History Tobacco Use Types [...] To be sent to: [facility]/pharmacy #[id number] [place] [address] documented in this encounter Plan of Treatment Upcoming Encounters Date Type Department Care Team (Late st Contact Info) Description 12/31/2024 10:00 AM EST Telemedicine [facility] MED & PEDS [address] [place] [address] Paola Thurston RN [address] [place] [address] 02/11/2025 2:45 PM EST Clinical Support [facility] [address] [place] [address] Paola Thurston RN [address] [place] [address] documented as of this encounter Goals Goal [...] documented as of this encounter Care Teams Second Hand Paper Machine Relationship Specialty Start Date End Date Genevieve Gtz MD [address] [place] [address] PCP - General Internal Medicine 10/12/22 documented as of this encounter
--- OUTSIDE RECORDS SUMMARY | 2024-12-22 10:03 | XMS_ITS | Encounter Summary ---
Author Organization [employer] [facility] Address [address] [facility] 7t [place] [address] Care Team Providers Care Airways Control Specialist Name Role Phone Genevieve Gtz MD Primary Care Pro vider Encounter Details Date Type Department Care Team ([facility] st Contact Info) Description 12/22/2024 Orders Only GENERIC EXTERNAL DATA [...] Info) Description 12/31/2024 10:00 AM EST Telemedicine [facility] & [facility]EDS [address] [place] [address] Paola Thurston RN [address] [place] [address] 02/11/2025 2:45 PM EST Clinical Support [facility] [address] [place] [address] Paola Thurston RN [address] [place] [address] documented as of this encounter Goals Goal [...] RED TOP Routine 12/22/2024 9:22 AM EDT documented in this encounter Results * XR Foot 3+ Views Left (12/22/2024 9:35 AM EDT) Anatomical Region Laterality Modality Lower Extremities, Foot Left Radiogra phic Imaging 12/22/2024 9:35 AM EDT Narrative 12/22/2024 10:00 AM EDT [address] [address] XRay Report Signed Patient: Shereen Taylor MR#: [id number] : 1990 Acct:[id number] Age/Sex: 34 / F ADM Date: 12/22/24 Loc: HO.ED Attending Dr: Ordering Physician: Urszula Garcia Date of Service: 12/22/24 Procedure(s): XR foot LT min 3V Accession Number(s): [id number] cc: Genevieve Gtz MD; Urszula Garcia Reason [...] in OV> 12/22/2457 DD/ 4 TD/TT: 12/22/24939 Fluoroscope Operator: CRSITI Procedure Note Donotuseinterpreter, Image - 12/22/[address] [address] XRay Report Signed Patient: Danna Taylor#: [id number] : 1990Acct:[id number] Age/Sex: 34 / FADM Date: 12/22/24 Loc: HO.ED Attending Dr: Ordering Physician: Urszula Garcia Date of Service: 12/22/24 Procedure(s): XR foot LT min 3V Accession Number(s): [id number] cc: Genevieve Gtz MD; Urszula Garcia Reason [...] in OV> 12/22/2457 DD/ 4 TD/TT: 12/22/24939 Fluoroscope Operator: CRISTI [facility] External Provider IMG XR PROCEDURES Edited Result - Final * Hold Red (12/22/2024 9:22 AM EDT) Hold Red See Note [facility] Comment:Specimen held untest ed for 24 hours; Call to requestChemistry testing. 12/22/2024 9:22 AM EDT 12/22/2024 9:49 AM EDT us Generic External Data Provider LAB BLOOD ORDERAB LES Final Result [facility] [address] [place] [phone] [phone] documented in this encounter Visit Diagnoses Not on filedocumented in this encounter Additional Health Concerns Assessment Noted Time PHQ-9 Depression Total Score: 0 10/23/19 24 2:23 PM EDT documented as of this encounter Care Teams Airways Control Specialist Relationship Specialty Start Date End Date Genevieve Gtz MD [address] [place] [address] PCP - General Internal Medicine 10/12/22 documented as of this encounter
--- OUTSIDE RECORDS SUMMARY | 2024-12-22 10:03 | XMS_ITS | Encounter Summary ---
Author Organization [facility] Address [address] [place] [phone] Phone Care Team Providers Care Station Mechanic Helper Name Role Phone EmilyAlyssa hutchinson Primary Care Provider Unava ilable Encounter Details Date Type Department Care Team (Late st Contact Info) Description 09/23/2024 TCM in Dialysis Clinic [facility] [address] [phone] Placido Carver MD [address] [address] Social History Tobacco Use Types [...] 09/23/2024 The patient was seen for a xfey-hm-bjpd visit as part of Transitional Care Management services. Attending Mirror Machine Feeder: PLACIDO CARVER MD Dialysis Location: [facility] Schedule: Shift: 2 INTERACTIVE CONTACT Contact [...] with the patient. VISIT DIAGNOSES CPT Code 99255 - High complexity, seen within 7 days of discharge. N18.6 End stage renal disease Signed by: PLACIDO CARVER MD on 09/23/2024 at 10:14:56 PM Transcribed by: PLACIDO CARVER MD on 09/23/2024 at 10:14:56 PM documented in this encounter Plan of Treatment Not on file documented as of this encounter Visit Diagnoses Not on filedocumented in this encounter Care Teams Station Mechanic Helper Relationship Specialty Start Date End Date Alyssa Manzano DO [address] [place] [address] PCP - General Family Medicine 03/02/21 documented as of this encounter
--- OUTSIDE RECORDS SUMMARY | 2024-12-22 10:03 | XMS_ITS | Encounter Summary ---
Author Organization [employer] Address [address] [place] [address] 7t [place] [address] Care Team Providers Care Pairer Odds Name Role Phone Carolina Hsu Primary Care Provider Genevieve [place] MD Primary Care Pro vider Reason for Visit * Reason Onset Date Comments Med Refill 07/28/2022 Encounter Details Date Type Department Care Team ([facility] st Contact Info) Description 07/28/2022 Telephone [facility] [address] [place] [address] [phone] Carolina Hsu FNP Med Refill Social History [...] 12/31/2024 10:00 AM EST Telemedicine [facility] MED & PEDS [address] [place] [address] Paola Thurston RN [address] [place] [address] 02/11/2025 2:45 PM EST Clinical Support [facility] MED & PEDS [address] [place] [address] Paola Thurston RN [address] [place] [address] documented as of this encounter Visit Diagnoses Diagnosis Acute on chronic heart failure, unspecified heart failure type (HCC)- Primary Benign essential hypertension Essential hypertension, benign documented in this encounter Care Teams Pairer Odds Relationship Specialty Start Date End Date Carolina Hsu FNP PCP - General Family Medicine 01/16/22 10/11/22 Genevieve Gtz MD [address] [place] [phone] PCP - General Internal Medicine 10/12/22 documented as of this encounter
--- OUTSIDE RECORDS SUMMARY | 2024-12-22 10:03 | XMS_ITS | Encounter Summary ---
Author Organization [employer] Address [address] [facility] 7t [place] [address] Care Team Providers Care Hospice Consultant Name Role Phone Genevieve Gtz MD Primary Care Pro vider Reason for Visit * Reason Onset Date Comments Med Refill 12/15/2024 Encounter Details Date Type Department Care Team ([facility] Contact Info) Description 12/15/2024 Telephone [facility] MEDICINE [address] [place] [address] Genevieve Gtz MD [address] [place], [place] [phone] Med Refill Social History Tobacco Use Types [...] tablet To be sent to: [facility]/pharmacy #[id number] [place] [address] documented in this encounter Plan of Treatment Upcoming Encounters Date Type Department Care Team (Late st Contact Info) Description 12/31/2024 10:00 AM EST Telemedicine [facility] MED & PEDS [address] [place] [address] Paola Thurston RN [address] [place] [address] 02/11/2025 2:45 PM EST Clinical Support [facility] PED[facility] [address] [place] [address] Paola Thurston RN [address] [place] [address] documented as of this encounter Goals Goal [...] documented as of this encounter Care Teams Hospice Consultant Relationship Specialty Start Date End Date Genevieve Gtz MD [address] [place] [address] PCP - General Internal Medicine 10/12/22 documented as of this encounter
--- OUTSIDE RECORDS SUMMARY | 2024-12-22 10:03 | XMS_ITS | Encounter Summary ---
Author Organization [facility] Address [address] [facility] [address] [place] [address] Phone Care Team Providers Care Automatic Bow Maker Machine Tender Name Role Phone Genevieve Gtz MD Primary Care Pro vider Encounter Details Date Type Department Care Team ([facility] Contact Info) Description 12/19/2024 Home Care Visit [facility] [address] [place] [address] Angela Foster RN [address] [place] [address] [email or web address] CASE COMMUNICATION Social History Tobacco Use Types [...] on filedocumented in this encounter Care Teams Automatic Bow Maker Machine Tender Relationship Specialty Start Date End Date Genevieve Gtz MD [address] [place] [address] PCP - General Internal Medicine 11/06/24 documented as of this encounter Additional Source Comments The information contained in this document represents components of the legal health record. It is not the complete legal health record.[facility]
--- OUTSIDE RECORDS SUMMARY | 2024-12-22 10:03 | XMS_ITS | Clinical Summary ---
Author Organization [facility] Address [address] [place] [address] Care Team Providers Care Pig Casting Machine Operator Name Role Phone Unavailable Primary [...] 0.79 S/CO ratio 01/10/2022 10:39 AM EST [employer] Hepatitis C Antibody Interpretation Nonreactive Nonreactive 01/10/2022 10:39 AM EST [employer] Blood specimen (specimen) (Plasma/Serum) 01/09/2022 8:34 AM EST 01/09/2022 9:21 AM EST us Jaziel B Post MD LAB BLOOD ORDERABLES Final Resu lt HOSPITAL LAB [facility] [address] [place] [address] * HIV 1/2 Ag/Ab CMIA Reflex to Confirmation (01/09/2022 8:34 AM EST) HIV 1/2 Ag/Ab CMIA Nonreactive Nonreactive 01/10/2022 10:39 AM EST [facility] Comment: Results show no evidence of infection [...] ORDERABLES Final Resu lt HOSPITAL [facility] [address] [place] [place] [address] from Last 3 Months or Most Recently Relevant to Health Maintenance Insurance [facility] Member Subscriber Plan / Payer ( fective 2022-Present) Name:Shereen Taylor Relation to Subscriber:Self Name:Shereen Taylor Payer ID:Not on file Group ID:Not on file Type:Not on file Address: [address] [id number] MISC MGD MEDICARE OUT OF NETWORK Advance Directives * Full Code (Latest Code Status on File) Date Activated Date Inactivated Comments 01/06/2022 5:00 AM Question Answer Comments Decision Thoroughly Discussed with: Unable to Ilda musa
--- OUTSIDE RECORDS SUMMARY | 2024-12-22 10:03 | XMS_ITS | Encounter Summary ---
Author Organization [employer] Address [address] [facility] 7t [place] [address] Care Team Providers Care Inspector Elevators Name Role Phone Genevieve Gtz MD Primary Care Pro vider Reason for Visit * Reason Onset Date Comments Medication Question 11/11/2024 Encounter Details Date Type Department Care Team ([facility] Contact Info) Description 11/11/2024 Telephone [facility] [address] [place], [place] [phone] Genevieve Gtz MD [address] [place], [place] [phone] Medication Question Social History Tobacco Use Types [...] MG immediate release tablet Contact pt at [phone] documented in this encounter Plan of Treatment Upcoming Encounters Date Type Department Care Team (Late st Contact Info) Description 12/31/2024 10:00 AM EST Telemedicine [facility] MED & PEDS [address] [place] [address] Paola Thurston RN [address] [place] [address] 02/11/2025 2:45 PM EST Clinical Support [facility] PED[facility] [address] [place] [address] Paola Thurston RN [address] [place] [address] documented as of this encounter Goals Goal [...] as of this encounter Care Teams Inspector Elevators Relationship Specialty Start Date End Date Genevieve Gtz MD [address] [place] [address] PCP - General Internal Medicine 10/12/22 documented as of this encounter
--- OUTSIDE RECORDS SUMMARY | 2024-12-22 10:03 | XMS_ITS | Clinical Summary ---
Author Organization [facility] Address [address] [place] [address] Phone Care Team Providers Care Field Marketing Manager Name Role Phone Genevieve Gtz MD Primary Care Pro vider Encounters Date Type Department Care Team Description 12/21/2024 Home Care Visit [facility] [address] [place] [address] Becca Saenz, KIRIT CASE COMMUNICATION 12/20/2024 Home Care Visit [facility] [address], [place] [phone] Becca Saenz, KIRIT CASE COMMUNICATION 12/19/2024 Home Care Visit [facility] [address] [place] [phone] Angela Foster RN CASE COMMUNICATION 12/15/2024 Orders Only [facility] [address], [place] [phone] Homehealth, Interface ProviderMD 11/16/2024 Home Care Visit [facility] [address] [place] [phone] Becca Saenz, KIRIT NON ADMIT HOME HEALTH VISIT 11/14/2024 Home Care Visit [facility] [address] [place] [phone] Angela Foster RN CASE COMMUNICATION 11/10/2024 Home Care Visit [facility] [address], [place] [phone] Angela Foster RN TELEPHONE ENCOUNTER 11/09/2024 Home Care Visit [facility] [address], [place] [phone] Becca Saenz, KIRIT CASE COMMUNICATION 11/04/2024 Orders Only [facility] [address], [place] [phone] Homehealth, Interface ProviderMD from Last 3 Months [...] file Medical Devices Not on file Insurance [facility] MEDICARE REPLACEMENT JOVON SOLOMON [id number] [facility] CARE [place]IC[place] [address] [place] [address] [address] [place] [address] [place] [address] [address] [address] [place] [address] CARE MEDICARE REPLACEMENT [facility] MEDICARE REPLACEMENT Care Teams Field Marketing Manager Relationship Specialty Start Date End Date Genevieve Gtz MD [address] [place] [id number] PCP - General Internal Medicine 11/06/24 Additional Source Comments The information contained in this document represents components of the legal health record. It is not the complete legal health record.[facility]
--- OUTSIDE RECORDS SUMMARY | 2024-12-22 10:03 | XMS_ITS | Encounter Summary ---
Author Organization [facility] Address [address] [place] [phone] Phone Care Team Providers Care Glazier Helper Name Role Phone EmilyAlyssa hutchinson Primary Care Provider Unava ilable Encounter Details Date Type Department Care Team (Late st Contact Info) Description 08/12/2024 TCM in Dialysis Clinic [facility] [address] [phone] Placido Carver MD [address] [phone] Social History Tobacco Use Types [...] 08/12/2024 The patient was seen for a vszu-ra-[id number] visit as part of Transitional Care Management services. Attending Payroll Services Analyst: PLACIDO CARVER MD Dialysis Location: [facility] Schedule: Shift: 2 INTERACTIVE [...] follow-up appointments noted. VISIT DIAGNOSES CPT Code 84312 - High complexity, seen within 7 days of discharge. N18.6 End stage renal disease Signed by: PLACIDO CARVER MD on 08/12/2024 at 01:16:47 PM Transcribed by: PLACIDO CARVER MD on 08/12/2024 at 01:16:47 PM documented in this encounter Plan of Treatment Not on file documented as of this encounter Visit Diagnoses Not on filedocumented in this encounter Care Teams Glazier Helper Relationship Specialty Start Date End Date Alyssa Manzano DO [address] [place] [address] PCP - General Family Medicine 03/02/21 documented as of this encounter
--- OUTSIDE RECORDS SUMMARY | 2024-12-22 10:03 | XMS_ITS | Clinical Summary ---
Author Organization [facility] Address [address] [phone] Phone Care Team Providers Care Blow Down Operator Name Role Phone Katlyn Manzanofer Primary Care [...] 12/04/2024 Treatment [facility] [address] [phone] Ed Carver MD End stage renal disease; Dependence on renal dialysis 11/25/2024 Treatment [facility] [address] [phone] Ed Carver MD End stage renal disease; Dependence on renal dialysis 11/22/2024 [facility] in Dialysis Clinic [facility] [address] [phone] Ed Carver MD 11/22/2024 Treatment [facility] [address] [phone] Ed Carver MD End stage renal disease; Dependence on renal dialysis 10/25/2024 Treatment [facility] [address] [phone] Ed Carver MD End stage renal disease; Dependence on renal dialysis 10/21/2024 Treatment [facility] [address] [phone] Ed Carver MD End stage renal disease; Dependence on renal dialysis 10/14/2024 Treatment [facility] [address] [phone] Ed Carver MD End stage renal disease; Dependence on renal dialysis 10/09/2024 Treatment [facility] [address] [phone] Ed Carver MD End stage renal disease; Dependence on renal dialysis 10/02/2024 Orders Only [facility] [address] [phone] Ed Carver MD 09/25/2024 Treatment [facility] [address] [phone] Ed Carver MD End stage renal disease; Dependence on renal dialysis 09/23/2024 [facility] in Dialysis Clinic [facility] [address] [phone] Ed Carver MD 09/23/2024 Treatment [facility] [address] [phone] Ed Carver MD End stage renal disease; [...] ORDERABLES Final Result [facility] [address] [place] [address] * LIH (11/27/2024 3:00 AM EDT) Only the most recent of5 resultswithin the time period is included. Lipemia Normal Normal [facility] Icterus Normal Normal [facility] Hemolysis Normal Normal [facility] 11/27/2024 3:00 AM EDT 11/28/2024 12:17 PM EDT Ed Carver MD LAB HISTORICA [id number] RESULTS Final Result Performing Organization Address City/[facility]/ZIP Co de Phone Number [facility] [address] [place] [address] * (ABNORMAL) Kt/V Natural Log, URR (11/27/2024 3:00 AM EDT) Only the most recent of4 resultswithin the time period is included. Pathologist [facility] Treatment Time 183 min [facility] Pre-Weight, lb [...] PM EDT Ed Carver MD LAB HISTORICA [id number] RESULTS Final Result Performing Organization Address City/[facility]/ZIP Co de Phone Number [facility] [address] [place] [address] * (ABNORMAL) Calcium Phosphorus Product, Adjusted (11/27/2024 [...] EDT us Ed Carver MD LAB HISTORICA [id number] RESULTS Final Result Performing Organization Address [facility] Co de Phone Number [facility] [address] [place] [address] * Hepatitis B Surface Ag w/Reflex Confirmation (11/27/2024 3:00 AM EDT) Only the most recent of3 resultswithin the time period is included. Pathologist [facility] Hep B Surface Antigen Negative Negative [facility] 11/27/2024 3:00 AM EDT 11/28/2024 12:17 PM EDT us Ed Carver MD LAB BLOOD ORDERABLES Final Result Performing Organization Address City/[facility] Co de Phone Number [facility] [address] [place] [address] * BUN/CREATININE RATIO (11/27/2024 3:00 AM EDT) Only the most recent of3 resultswithin the time period is included. Pathologist [facility] BUN/Creatinine Ratio 7.5 <=23.0 [facility] 11/27/2024 3:00 AM EDT 11/28/2024 12:17 PM EDT us Ed Carver MD LAB HISTORICA [id number] RESULTS Final Result Performing Organization Address City/[facility]/ZIP Co de Phone Number [facility] [address] [place] [address] * (ABNORMAL) TSAT (11/27/2024 3:00 AM EDT) Only the most recent of3 resultswithin the time period is included. [facility] Iron 51 50 - 170 ug/dL [facility] Transferrin 158(L) 250 - 380 mg/dL [facility] TIBC 221 211 - 406 ug/dL [facility] Iron Saturation (TSat) 23 22 - 52 % [facility] 11/27/2024 3:00 AM EDT 11/28/2024 12:17 PM EDT Ed Carver MD LAB BLOOD ORDERABLES Final Result Performing Organization Address [facility] Co de Phone Number [facility] [address] [place] [address] * (ABNORMAL) CBC and Differential (11/27/2024 3:00 AM EDT) Only the most recent of3 resultswithin the time period is included. [facility] DIFFERENTIAL MANUAL, 2 Not Indicated [facility] White [...] Organization Address [facility] Co de Phone Number [facility] [address] [place] [address] * (ABNORMAL) ALT (11/27/2024 3:00 AM EDT) Only the most recent of3 resultswithin the time period is included. ALT (SGPT) <7(L) 10 - 49 U/L [facility] 11/27/2024 3:00 AM EDT 11/28/2024 12:17 PM EDT Ed Carver MD LAB BLOOD ORDERABLES Final Result Performing Organization Address [facility] de Phone Number [facility] [address] [place] [address] * AST (11/27/2024 3:00 AM EDT) Only the most recent of3 resultswithin the time period is included. AST (SGOT) 14 <34 U/L [facility] 11/27/2024 3:00 AM EDT 11/28/2024 12:17 PM EDT Ed Carver MD LAB BLOOD ORDERABLES Final Result Performing Organization Address [facility] de Phone Number [facility] [address] [place] [address] * Protein, total (11/27/2024 3:00 AM EDT) Only the most recent of3 resultswithin the time period is included. Total Protein 6.9 6.4 - 8.9 g/dL [facility] 11/27/2024 3:00 AM EDT 11/28/2024 12:17 PM EDT Ed Carver MD LAB BLOOD ORDERABLES Final Result Performing Organization Address [facility] Co de Phone Number [facility] [address] [place] [address] * (ABNORMAL) Alkaline phosphatase (11/27/2024 3:00 AM EDT) Only the most recent of3 resultswithin the time period is included. Pathologist [facility] Alkaline Phosphatase 122(H) 46 - 116 U/L [facility] 11/27/2024 3:00 AM EDT 11/28/2024 12:17 PM EDT Ed Carver MD LAB BLOOD ORDERABLES Final Result Performing Organization Address [facility] de Phone Number [facility] [address] [place] [address] * PTH, Intact (11/27/2024 3:00 AM EDT) Pathologist [facility] PTH, Intact 550 160 - 721 pg/mL [facility] Comment: Suggested (KDIGO) ESRD maintenance range is two to nine times the upper normal limit (80.1 pg/mL) for the laboratory. 11/27/2024 3:00 AM EDT 11/28/2024 12:17 PM EDT Ed Carver MD LAB BLOOD ORDERABLES Final Result Performing Organization Address [facility] de Phone Number [facility] [address] [place] [address] * Magnesium (11/27/2024 3:00 AM EDT) Only the most recent of3 resultswithin the time period is included. Magnesium 2.5 1.9 - 2.7 mg/dL [facility] 11/27/2024 3:00 AM EDT 11/28/2024 12:17 PM EDT us Ed Carver MD LAB BLOOD ORDERABLES Final Result Performing Organization Address City/[facility] Co de Phone Number [facility] [address] [place] [address] * (ABNORMAL) Lactate dehydrogenase (11/27/2024 3:00 AM EDT) Only the most recent of3 resultswithin the time period is included. LDH 260(H) 120 - 246 U/L [facility] 11/27/2024 3:00 AM EDT 11/28/2024 12:17 PM EDT us Ed Carver MD LAB BLOOD ORDERABLES Final Result Performing Organization Address [facility] de Phone Number [facility] [address] [place] [address] * (ABNORMAL) Hemoglobin A1c (11/27/2024 3:00 AM EDT) Pathologist [facility] Hemoglobin A1C 5.7(H) <5.7 % [facility] Comment: Methodology: Enzymatic Normal: <5.7% Prediabetes: 5.7-6.4% Diabetes: >6.4% Diabetic Glucose Control Evaluation: Therapeutic action suggested at >8.0% ADA recommends a glycemic goal of <7.0% 11/27/2024 3:00 AM EDT 11/28/2024 12:24 PM EDT us Ed Carver MD LAB BLOOD ORDERABLES Final Result Performing Organization Address [facility] Co de Phone Number [facility] [address] [place] [address] * (ABNORMAL) Glucose, random (11/27/2024 3:00 AM EDT) Only the most recent of3 resultswithin the time period is included. Glucose 217(H) 70 - 99 mg/dL [facility] Comment: ADA guidelines outline the following fasting glucose ranges: Normal: <100 Prediabetes: 100-125 Diabetes: >125 11/27/2024 3:00 AM EDT 11/28/2024 12:17 PM EDT Ed Carver MD LAB BLOOD ORDERABLES Final Result Performing Organization Address City/[facility] Co de Phone Number [facility] [address] [place] [address] * Ferritin (11/27/2024 3:00 AM EDT) Only the most recent of3 resultswithin the time period is included. Ferritin 166 10 - 291 ng/mL [facility] 11/27/2024 3:00 AM EDT 11/28/2024 12:17 PM EDT Ed Carver MD LAB BLOOD ORDERABLES Final Result Performing Organization Address [facility] de Phone Number [facility] [address] [place] [address] * (ABNORMAL) Creatinine, serum (11/27/2024 3:00 AM EDT) Only the most recent of3 resultswithin the time period is included. Creatinine 10.25(H) 0.55 - 1.02 mg/dL [facility] 11/27/2024 3:00 AM EDT 11/28/2024 12:17 PM EDT Ed Carver MD LAB BLOOD ORDERABLES Final Result Performing Organization Address [facility] de Phone Number [facility] [address] [place] [address] * Bilirubin, total (11/27/2024 3:00 AM EDT) Only the most recent of3 resultswithin the time period is included. Total Bilirubin 0.3 0.3 - 1.2 mg/dL [facility] 11/27/2024 3:00 AM EDT 11/28/2024 12:17 PM EDT us Ed Carver MD LAB BLOOD ORDERABLES Final Result Performing Organization Address [facility] Co de Phone Number [facility] [address] [place] [address] * (ABNORMAL) Lipid panel (11/27/2024 3:00 AM [...] Organization Address [facility] de Phone Number [facility] [address] [place] [address] * (ABNORMAL) Electrolyte panel (11/27/2024 3:00 AM [...] ORDERABLES Final Result [facility] [address] [place] [address] * (ABNORMAL) Phosphorus (10/21/2024 3:00 AM EDT) Phosphorus, Serum 8.8(H) 2.5 - 5.0 mg/dL [facility] 10/21/2024 3:00 AM EDT 10/22/2024 1:27 PM EDT Ed Carver MD LAB BLOOD ORDERABLES Final Result Performing Organization Address City/[facility] Co de Phone Number [facility] [address] [place] [address] from Last 3 Months Insurance [facility] ([id number]) JOVON SOLOMON [id number] [facility] ([id number]) [facility] ([id number]) Care Teams Blow Down Operator Relationship Specialty Start Date End Date Alyssa Manzano DO [address] [place] [address] PCP - General Family Medicine 03/02/21
--- OUTSIDE RECORDS SUMMARY | 2024-12-22 10:03 | XMS_ITS | Encounter Summary ---
Author Organization [employer] Address [address] [facility] [address] [place] [address] Care Team Providers Care Talent Assistant Name Role Phone Genevieve Gtz MD Primary Care Pro vider Reason for Visit * Reason Comments Med Refill Encounter Details Date Type Department Care Team (Late st Contact Info) Description 08/26/2023 Refill [facility] [address] [place], [place] [phone] Genevieve Gtz MD [address] [place], [place] [phone] Benign essential hypertension Social History Tobacco Use [...] [facility] [address] [place] [address] Paola Thurston RN [address] [place] [address] 02/11/2025 2:45 PM EST Clinical Support [facility] [address] [place] [address] Paola Thurston RN [address] [place] [address] documented as of this encounter Goals Goal [...] documented as of this encounter Care Teams Talent Assistant Relationship Specialty Start Date End Date Genevieve Gtz MD [address] [place] [id number] PCP - General Internal Medicine 10/12/22 documented as of this encounter
--- OUTSIDE RECORDS SUMMARY | 2024-12-22 10:03 | XMS_ITS | Encounter Summary ---
Author Organization [employer] Address [address] [facility] [address] [place] [address] Care Team Providers Care Window Systems Administrator Name Role Phone Genevieve Gtz MD Primary Care Pro vider Encounter Details Date Type Department Care Team ([facility] st Contact Info) Description 12/19/2024 Orders [...] [facility] [address] [place] [address] Paola Thurston RN [address] [place] [address] 02/11/2025 2:45 PM EST Clinical Support [facility] [address] [place] [address] Paola Thurston RN [address] [place] [phone] Pending Results Name Type Priority Associated Diagnoses [...] PM EDT) Hold Green Gel See Note [facility] Comment:Specimen held untest ed for 24 hours; Call to requestChemistry testing. 12/19/2024 1:42 PM EDT 12/19/2024 1:49 PM EDT Generic External Data Provider HISTORICAL/NON OR DERABLE LABS Final Result Performing Organization Address [facility] Co de Phone Number [facility] [address] [place] [address] [phone] * (ABNORMAL) Sed Rate by Modified Westergren (12/19/2024 1:33 PM EDT) Erythrocyte Sedimentation Rate 54(H) 0 - 20 MM/HR [facility] Comment:Patients with polycy themia and many hemoglobin abnormalitiesmay have depressed sed rates whereas patients with anemiamay have elevated sed rates. 12/19/2024 1:33 PM EDT 12/19/2024 1:36 PM EDT us Generic External Data Provider LAB BLOOD ORDERAB LES Final Result Performing Organization Address [facility]/ZIP Co de Phone Number [facility] [address] [place] [phone] Lipase (12/19/2024 1:33 PM EDT) Pathologist [facility] Lipase 37 8 - 78 U/L [facility] 12/19/2024 1:33 PM EDT 12/19/2024 1:36 PM EDT Generic External Data Provider LAB BLOOD ORDERAB LES Final Result Performing Organization Address [facility]/ZIP Co de Phone Number [facility] [address] [place] [phone] * (ABNORMAL) C-reactive Protein (12/19/2024 1:33 PM EDT) [facility] [address] C Reactive Protein 0.84(H) < or = 0.50 mg/dL [facility] 12/19/2024 1:33 PM EDT 12/19/2024 1:36 PM EDT Generic External Data Provider LAB BLOOD ORDERAB LES Final Result Performing Organization Address [facility] Co de Phone Number [facility] [address] [place] [phone] * (ABNORMAL) Comprehensive Metabolic Panel (12/19/2024 1:33 PM EDT) Pathologist [facility] Sodium 140 135 - 145 mmol/L [facility] Potassium 5.4(H) 3.3 - 5.1 mmol/L [facility] Chloride 103 96 - 108 mmol/L [facility] Carbon Dioxide 25 22 - 29 mmol/L [facility] Anion Gap 17 12 - 20 [facility] Urea Nitrogen (BUN) 60(H) 9 - 16 mg/dL [facility] Creatinine, Serum 8.83(HH) 0.5 - 1.4 mg/dL [facility] Comment:Critical value for C REAT: Results called to and read backby: RAJAN Person calling: ALBERTINA Date: 12/19/24 Time:1402 Creatinine Clr Calc Pharmacy 9.8 [facility] Comment:Provided height and weight: 167.64 cm,87.6 kg.eGFR (calculated from the MDRD study equation) and eCrCl(calculated from the Cockcroft-Gault equation) are based ondifferent parameters and may not yield comparable results.If eCrCl result is absurd, please check patient'sheight/weight. Estimated Glomerular Filt Rate 5 [facility] Comment:Chronic Kidney Disea se: Estimated GFR < 60 mL/min/1.59s0Inivyu Kidney Disease: Estimated GFR < 15 mL/min/1.73m2 Glucose 161(H) 60 - 115 mg/dL [facility] Calcium 8.8 8.4 - 10.2 mg/dL [facility] Bilirubin, Total 0.7 0.0 - 1.0 mg/dL [facility] Aspartate Amino Transferase 27 5 - 31 U/L [facility] Alanine Aminotransferase 18 0 - 31 U/L [facility] Total Protein 7.7 6.5 - 8.0 g/dL [facility] Albumin Level 4.1 3.5 - 5.0 g/dL [facility] Alkaline Phosphatase 141(H) 39 - 117 U/L [facility] 12/19/2024 1:33 PM EDT 12/19/2024 1:36 PM EDT us Generic External Data Provider LAB BLOOD ORDERAB LES Final Result Performing Organization Address [facility] Co de Phone Number [facility] [address] [place] [phone] Lactic Acid (12/19/2024 1:33 PM EDT) Lactic Acid 1.9 0.5 - 2.0 mmol/L [facility] 12/19/2024 1:33 PM EDT 12/19/2024 1:36 PM EDT us Generic External Data Provider LAB BLOOD ORDERAB LES Final Result Performing Organization Address [facility]/State/ZIP Co de Phone Number [facility] [address] [place] [phone] * Partial Thromboplastin Time, Activated (APTT) (12/19/2024 1:33 PM EDT) Pathologist [facility] Partial Thromboplastin Time 34.0 26.7 - 34.1 SEC [facility] 12/19/2024 1:33 PM EDT 12/19/2024 1:36 PM EDT us Generic External Data Provider LAB BLOOD ORDERAB LES Final Result [facility] [address] [place] [phone] * (ABNORMAL) CBC auto differential (12/19/2024 1:33 PM EDT) [facility] [address] White Blood Count 5.7 4.8 - 10.8 X10*3/uL [facility] Red Blood Count 3.36(L) 4.20 - 5.50 X10*6/uL [facility] Hemoglobin 10.3(L) 12.0 - 16.0 g/dl [facility] Hematocrit 32.2(L) 37.0 - 47.0 % [facility] Mean Corpuscular Volume 95.8 80.0 - 98.0 fL [facility] Mean Corpuscular Hemoglobin 30.7 27.0 - 33.0 pg [facility] Mean Corpuscular HGB Conc 32.0 31.0 - 35.0 g/dl [facility] Red Cell Distribution Width 14.3 11.0 - 16.0 % [facility] Platelet Count 116(L) 160 - 400 X10*3/uL [facility] Mean Platelet Volume 11.3 9.4 - 12.3 fL [facility] Neutrophils Percent Auto 68.9 45 - 73 % [facility] Imm Gran Pct Auto 0.4 0.0 - 0.4 % [facility] Lymphocytes Percent Auto 13.9(L) 20 - 40 % [facility] Monocytes Percent Auto 13.2(H) 2 - 11 % [facility] Eosinophils Percent Auto 3.2 0 - 4 % [facility] Basophils Percent Auto 0.4 0 - 2 % [facility] NRBC Pct Auto 0.0 0.0 - 0.2 /100WBC [facility] Neutrophils Absolute Auto 3.9 2.0 - 8.3 x10*3/uL [facility] Imm Gran Abs Auto 0.02 0.00 - 0.03 X10*3/uL [facility] Lymphocytes Absolute Auto 0.8(L) 1.2 - 4.9 X10*3/uL [facility] Monocytes Absolute Auto 0.8 0.1 - 1.2 X10*3/uL [facility] Eosinophils Absolute Auto 0.2 0.0 - 0.4 X10*3/uL [facility] Basophils Absolute Auto 0.0 0.0 - 0.2 X10*3/uL [facility] NRBC Abs Auto 0.000 0.0 - 0.012 X10*3/uL [facility] 12/19/2024 1:33 PM EDT 12/19/2024 1:36 PM EDT us Generic External Data Provider LAB BLOOD ORDERAB LES Final Result Performing Organization Address City/State/[facility] Co de Phone Number [facility] [address] [place] [phone] documented in this encounter Visit Diagnoses Not on filedocumented in this encounter Additional Health Concerns Assessment Noted Time PHQ-9 Depression Total Score: 0 10/23/19 24 2:23 PM EDT documented as of this encounter Care Teams Window Systems Administrator Relationship Specialty Start Date End Date Genevieve Gtz MD [address] [place] [address] PCP - General Internal Medicine 10/12/22 documented as of this encounter
[2024-12-22] MEDS: Albuterol Sulfate (0.083%) 2.5 MG/3 ML VIAL.NEB 10 MG INHALE (10:07)
--- NOTE | 2024-12-22 10:37 | PC.NURSE ---
got Abx from pyxis, pt just left to [place] for imagine, awaiting return for administration
--- NOTE | 2024-12-22 10:50 | PC.NURSE ---
Vanco prepped but not started at this time. Pt informed me that with vanco in the past she's had itching and needed benadryl. Med help and provider notified.
--- NOTE | 2024-12-22 13:22 | PC.NURSE ---
Bilat feet wrapped with gauze and non-adherent pads.
--- NOTE | 2024-12-22 13:25 | PHA.MEDREC ---
Addendum entered by Marly Campo RPh 12/22/24 13:39: Per Pepe, patient said that provider here at [facility] told her to stop the doxycycline on sunday12/19/24. MED REC REVIEWED BY [facility] Original Note: Pharmacy Consult ? Medication Reconciliation Pharmacy has completed the medication reconciliation. Spoke with pt and she confirmed her medications. Pt just gpt med rec done 12/17 and pt confirmed dc packet from then is up to date. Pt just got prescribed Dilaudid (pt confirmed 4mg Q6H PRN) and Reglan 12/19 (Pt confirmed 10mg Q6H PRN and confirmed she started those that day. Pt unsure the last time she took her medications.
--- NOTE | 2024-12-22 14:23 | PC.NURSE ---
Pt went to dialysis. No room available at this time, report placed in case patient gets a room
--- NOTE | 2024-12-22 15:01 | P.CONGS_ITS ---
History of Present Illness Consult details Consult date: 12/22/24 <Regino Sauceda PA-C - Last Filed: 12/22/24 15:21> Requesting physician: Ellen Frankel <Regino Sauceda PA-C - Last Filed: 12/22/24 15:21> Narrative: 34 year old female with a complicated medical history inclduing ESRD on dialysis, PAD, MS, bilateral TMA, chronic foot ulcers, who is well known to our service, seen in consult for chronic wounds of the left foot. [facility]up included MRI which was highly suspicious for chronic osteomyelitis. She returned today after a fall and headstrike at home. She reports her wounds have gotten worse since she was discharged, the side of her left foot has been draining more and her sister who helps with wound care noticed a bad small the last time she changed the dressings. This area is very painful for her. For her right foot, she states that it has been doing good, no drainage, jsut some skin that she thinks may need to be debrided. This foot has not been painful. She denies fevers at home <Regino Sauceda PA-C - Last Filed: 12/22/24 15:21> Review of Systems 2 Review of Systems: Yes all other systems are reviewed and are negative < Regino Sauceda PA-C - Last Filed: 12/22/24 15:21> [facility] Past Medical History Medical History: Medical History Multiple sclerosis Cerebral infarction Hyperkalemia ESRD on dialysis Hypoxia End stage renal disease on dialysis Chronic ulcer of right foot due to diabetes mellitus Chronic ulcer of left foot due to diabetes mellitus DM foot ulcer ESRD on hemodialysis Hypotonic neurogenic bladder Diabetic polyneuropathy Hypertensive emergency Decompensated heart failure Renal failure Hypertension, uncontrolled Medical non-compliance Pericarditis Unspecified hypertension, condition or complication Metabolic acidosis Gastroparesis End stage chronic kidney disease Chronic kidney disease Anemia Plantar ulcer of left foot MDD (major depressive disorder) CKD (chronic kidney disease) Hypertension Vomiting Chronic pain Non-compliance with renal dialysis End-stage renal disease (ESRD) Diabetic foot ulcer associated with type 2 diabetes mellitus Cardiomyopathy HFrEF (heart failure with reduced ejection fraction) delivery delivered Anemia in chronic kidney disease (CKD) CKD (chronic kidney disease) Abnormal finding on echocardiogram Elevated troponin Acute worsening of stage 3 chronic kidney disease Generalized edema Sepsis Cellulitis Pleural effusion Atypical chest pain Bone infection PAD (peripheral artery disease) Cellulitis and abscess of foot Osteomyelitis Asthma Depression with anxiety Diabetic retinopathy Blind right eye Diabetes Back pain <Regino Sauceda PA-C - Last Filed: 12/22/24 15:21> Family History Family History: Family History Mother Coronary artery disease Myocardial infarction Stroke Diabetes mellitus Father Myocardial infarction <LEXA Gomez Last Filed: 12/22/24 15:21> Surgical History Surgical History: Surgical History Tubal ligation status Previous section Hx laparoscopic cholecystectomy Hx of surgical procedure (~09/11/23) 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 <LEXA Gomez Last Filed: 12/22/24 15:21> Social History Social History: Social History Household Members: Family and Caregiver Household Members Other:: sister, brother, [id number] Housing: Apartment Housing Other:: Apartment, 1st floor Are you a primary respiratory care program director to a significant other at home: No Do you presently have visiting nurse or other home services: No Alcohol intake: never Comment: Intermittently refuses Patient Tobacco Use Status: Never used Tobacco Smoked in Last 30 Days: No e-Cigarette/Vaping Use: Never Used Second Hand Smoke Exposure: No Use of substances other than those prescribed or required for medical reasons: No Advance Directives: Yes Advance Directives on File: Yes Advance Directives Date on File: 08/28/23 Do you have a plan to hurt others: No Plan Patient : No service: No Current occupational status: unemployed and disabled Gender identity: Female <LEXA Gomez Last Filed: 12/22/24 15:21> Meds Allergies/Adverse reactions: Allergies Allergy/AdvReac Type Severity Reaction Status Date / Time gabapentin Allergy Severe Facial Verified 12/22/24 08:54 Swelling tramadol Allergy Severe Facial Verified 12/22/24 08:54 Swelling azithromycin (From Zithromax) Allergy Intermediate Hives Verified 12/22/24 08:54 morphine (MORPHINE) Allergy Intermediate Itching Verified 12/22/24 08:54 vancomycin AdvReac Intermediate Itching Verified 12/22/24 10:52 <Regino Sauceda PA-C - Last Filed: 12/22/24 15:21> Active Medications: Current Medications Heparin Sodium (Porcine) (Heparin Sodium,Porcine 5,000 Unit/Ml Vial) 5,000 unit SUBCUT Q12H VASILE <Regino Sauceda PA-C - Last Filed: 12/22/24 15:21> Home medications: Home Medications ?Medication ?Instructions ?Recorded ?Confirmed ?Last Taken ?Type albuterol sulfate 90 mcg/actuation 2 puff inhalation Q 6H PRN wheezing 01/15/24 12/22/24 12/09/24 History aerosol inhaler (Ventolin HFA) lidocaine 5 % topical patch 1 patch topical DAILY PRN Pain 01/15/24 12/22/24 12/09/24 History nitroglycerin 0.4 mg sublingual 0.4 mg sublingual D IRECTED PRN 01/15/24 12/22/24 12/09/24 History tablet Angina acetaminophen 325 mg tablet 650 mg PO Q4H PRN mild jamar n 03/11/24 12/22/24 12/09/24 History calcium carbonate (Tums) 200 mg PO TIDWM PRN Acid Ref lux 07/03/24 12/22/24 12/09/24 History <Regino Sauceda PA-C - Last Filed: 12/22/24 15:21> Physical Exam 2 Vital Signs: Vital Signs: Last Vital Signs Temp 97.8 F 12/22/24 09:05 Pulse 85 12/22/24 14:00 Resp 13 12/22/24 14:00 BP 192/104 H 12/22/24 14:00 Pulse Ox 100 12/22/24 14:00 O2 Del Method Nasal Cannula 12/22/24 14:00 O2 Flow Rate 3 12/22/24 14:00 BMI result Body Mass Index 35.2 <LEXA Gomez Last Filed: 12/22/24 15:21> Const: General: comfortable and no acute distress <LEXA Gomez Last Filed: 12/22/24 15:21> Orientation/consciousness: patient oriented x3 <LEXA Gomez Last Filed: 12/22/24 15:21> Neuro: General: patient oriented x3 <LEXA Gomez Last Filed: 12/22/24 15:21> Extrem: Other: Bilateral TMA left foot: 4x4 cm ulcer on the plantar ascpect of the foot, scant serosanguenious drainage.thick callous on the surrounding wound border. lateral foot ulcer, very tender, limiting exam. there was a small fluid collection jsut superior to the wound that expressed some fluid through the wound. malodor. <LEXA Gomez Last Filed: 12/22/24 15:21> Results Labs Result diagrams: 12/22/24 09:22 12/22/24 09:22 <LEXA Gomez Last Filed: 12/22/24 15:21> Labs: Abnormal lab results 12/22/24 Range/Units 09:22 WBC 4.2 L (4.8-10.8) X10*3/uL RBC 3.07 L (4.20-5.50) X10*6/uL Hgb 9.4 L (12.0-16.0) g/dl Hct 29.4 L (37.0-47.0) % Plt Count 93 L (160-400) X10*3/uL MPV 12.7 H (9.4-12.3) fL Lymph % (Auto) 14.5 L (20-40) % Eos % (Auto) 4.7 H (0-4) % Lymph # (Auto) 0.6 L (1.2-4.9) X10*3/uL ESR 47 H (0-20) MM/HR Potassium 6.0 H* (3.3-5.1) mmol/L Carbon Dioxide 20 L (22-29) mmol/L Anion Gap 21 H (12-20) BUN 85 H (9-16) mg/dL Creatinine 11.65 H* (0.5-1.4) mg/dL Calcium 8.2 L (8.4-10.2) mg/dL AST 33 H (5-31) U/L Alkaline Phosphatase 150 H (39-117) U/L C-Reactive Protein 0.95 H (< or = 0.50) mg/dL Short CBC 12/22/24 Range/Units 09:22 WBC 4.2 L (4.8-10.8) X10*3/uL Hgb 9.4 L (12.0-16.0) g/dl Hct 29.4 L (37.0-47.0) % Plt Count 93 L (160-400) X10*3/uL BMP 12/22/24 09:22 Sodium 139 Potassium 6.0 H* Chloride 104 Carbon Dioxide 20 L BUN 85 H Creatinine 11.65 H* Calcium 8.2 L Liver Function 12/22/24 Range/Units 09:22 Total Bilirubin 0.9 (0.0-1.0) mg/dL Direct Bilirubin 0.4 (0.0-0.5) mg/dL AST 33 H (5-31) U/L ALT 21 (0-31) U/L Alkaline Phosphatase 150 H (39-117) U/L Albumin 4.0 (3.5-5.0) g/dL All other labs normal. <Regino Sauceda PA-C - Last Filed: 12/22/24 15:21> Assessment and Plan (1) Osteomyelitis: Qualifiers: Laterality: right Osteomyelitis location: foot O steomyelitis type: unspecified type Qualified Code(s): M86.9 - Osteomyelitis, unspecified <Regino Sauceda PA-C - Last Filed: 12/22/24 15:21> Status: Acute <Regino Sauceda PA-C - Last Filed: 12/22/24 15:21> Patient known well to our service She has known osteomyelitis plantar ulcer of the left foot Says she has had this has not getting better She wants to proceed with a BKA of the left We will have her optimized for BKA while inpatient Continue antibiotics for now Seen during dialysis Seen and examined independently We will follow <Tu Rajput MD - Last Filed: 12/22/24 16:11> (2) Plantar ulcer of left foot: Qualifiers: Non-pressure ulcer stage: unspecified non-pressure ulcer stage Qualified Code(s): L97.529 - Non-pressure chronic ulcer of other part of left foot with unspecified severity <Regino Sauceda PA-C - Last Filed: 12/22/24 15:21> Status: Acute <Regino Sauceda PA-C - Last Filed: 12/22/24 15:21> 34 year old female with a complicated medical history inclduing ESRD on dialysis, PAD, MS, chronic osteomyelitis. She is well known to our service, Recently admitted earlier this month, found to have chronic OM of the remaining left fifth metatarsal. Was discharged for wound care and abx. She presented to the ED following a fall, however she is seen by general surgery for her chronic foot wounds. She states that her sister has been doing wound care for her and notice over the past few days that there has been more purulent drainage and malodorous, now more painful. On exam there was a 2.5 x 2.5 cm open wound on the lateral aspect of the 5th metatarsal, exquisitely tender to palpation. there was a small area of fluctuance superior to the wound that when palpated allowed for more purulent drainage from the wound. Was unable to probe this due to pain. Additionally there is a 3.5x3.5 cm wound on the plantar aspect of the wound, minimal serosanguenious drainage, and a thick callous around the wound border. This was dressed with gauze wrap with Kerlix and Izaiah bandage. Tomorrow will plan for durafiber, guaze and kerlix. Daily wound care Continue IV antibiotics per ID Will likely need BKA during this admission, patient understands this. Formal plan to follow should optimize her vaious medical comorbidities prior to surgery. <Regino Sauceda PA-C - Last Filed: 12/22/24 15:21> Procedures Date of Service Date of Service: 12/22/24 <Regino Sauceda PA-C - Last Filed: 12/22/24 15:21> 12/22/24 <Tu Rajput MD - Last Filed: 12/22/24 16:11>
--- NOTE | 2024-12-22 16:13 | MHC.CM.PN ---
Addendum entered by Vane Kenny RN 12/22/24 16:16: Per [facility], they are not active. Attempted to contact patient x3 after last dc but patient did not answer. Can accept patient if patient agrees to receive services. Original Note: [facility] delivered. 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 Uses w/c. Also has DM supplies, wound supplies, home O2 PRN via [employer]. Active w/ [facility]. PCP Genevieve Casillas HCP on file and verified. DP: ? need for BKA this admission. STR vs home w/ services. BLS transport. CM will continue to follow.
--- NOTE | 2024-12-22 19:24 | P.HPHOSP_ITS ---
History of Present Illness Date of Service: 12/22/24 Chief Complaint: Fall at home; concern for bilateral infected foot wounds 34-year-old female with a complex medical history including: * Peripheral artery disease (PAD) s/p bilateral transmetatarsal amputation (TMA) secondary to osteomyelitis * End-stage renal disease (ESRD) on hemodialysis (//Sun) * Uncontrolled type 2 diabetes mellitus * Chronic opioid dependence * Congestive heart failure (HFrEF) * Relapsing-remitting multiple sclerosis vs. central pontine myelinolysis * Chronic anemia * History of C. difficile infection * Medical noncompliance (frequent missed dialysis, poor medication adherence) Recent Course Multiple recent ED visits and hospitalizations for chronic left foot osteomyelitis, diabetic foot ulcers, and complications of ESRD. Discharged from hospital within the past week after treatment for left foot osteomyelitis (managed with oral doxycycline, which she has not tolerated due to nausea/vomiting). Surgical and ID teams have been involved; consensus is that her osteomyelitis is chronic and not amenable to further IV or oral antibiotics at this time. Amputation (BKA) has been discussed as a future option. Home health and VNA referrals in place, but patient is often noncompliant with follow-up and care recommendations. Current Presentation Presents after a mechanical fall at home (tripped in bathroom, struck head on tub). No loss of consciousness, no new focal neurological deficits. Reports headache and neck pain, with associated nausea and vomiting (present prior to fall). Admits to missed dialysis session on Sunday; last session was . Was scheduled for dialysis today. Reports [id number] left foot wound with malodorous drainage. Denies chest pain, shortness of breath, or new systemic symptoms. No new symptoms suggestive of acute infection or decompensation beyond her baseline. Review of Systems 2 Review of Systems: Yes all other systems are reviewed and are negative [facility] Medical History Multiple sclerosis Cerebral infarction Hyperkalemia ESRD on dialysis Hypoxia End stage renal disease on dialysis Chronic ulcer of right foot due to diabetes mellitus Chronic ulcer of left foot due to diabetes mellitus DM foot ulcer ESRD on hemodialysis Hypotonic neurogenic bladder Diabetic polyneuropathy Hypertensive emergency Decompensated heart failure Renal failure Hypertension, uncontrolled Medical non-compliance Pericarditis Unspecified hypertension, condition or complication Metabolic acidosis Gastroparesis End stage chronic kidney disease Chronic kidney disease Anemia Plantar ulcer of left foot MDD (major depressive disorder) CKD (chronic kidney disease) Hypertension Vomiting Chronic pain Non-compliance with renal dialysis End-stage renal disease (ESRD) Diabetic foot ulcer associated with type 2 diabetes mellitus Cardiomyopathy HFrEF (heart failure with reduced ejection fraction) delivery delivered Anemia in chronic kidney disease (CKD) CKD (chronic kidney disease) Abnormal finding on echocardiogram Elevated troponin Acute worsening of stage 3 chronic kidney disease Generalized edema Sepsis Cellulitis Pleural effusion Atypical chest pain Bone infection PAD (peripheral artery disease) Cellulitis and abscess of foot Osteomyelitis Asthma Depression with anxiety Diabetic retinopathy Blind right eye Diabetes Back pain Family History Mother Coronary artery disease Myocardial infarction Stroke Diabetes mellitus Father Myocardial infarction Surgical History Tubal ligation status Previous section Hx laparoscopic cholecystectomy Hx of surgical procedure (~09/11/23) 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 Social History Household Members: Family Household Members Other:: sister, brother, [id number] Housing: Apartment Housing Other:: Apartment, 1st floor Are you a primary primary care nurse to a significant other at home: No Do you presently have visiting nurse or other home services: Yes Alcohol intake: never Comment: Intermittently refuses Patient Tobacco Use Status: Never used Tobacco Smoked in Last 30 Days: No e-Cigarette/Vaping Use: Never Used Second Hand Smoke Exposure: No Use of substances other than those prescribed or required for medical reasons: No Have you been hit, kicked, punched, or otherwise hurt by someone within the past year? If so, by whom?: No Do you feel safe in your current relationship?: Yes Is there a partner from a previous relationship who is making you feel unsafe now?: No Are you made to feel afraid or neglected: No Advance Directives: Yes Advance Directives on File: Yes Advance Directives Date on File: 08/28/23 Do you have a plan to hurt others: No Plan Patient : No service: No Current occupational status: unemployed and disabled Gender identity: Female Meds Allergies Allergy/AdvReac Type Severity Reaction Status Date / Time gabapentin Allergy Severe Facial Verified 12/22/24 08:54 Swelling tramadol Allergy Severe Facial Verified 12/22/24 08:54 Swelling azithromycin (From Zithromax) Allergy Intermediate Hives Verified 12/22/24 08:54 morphine (MORPHINE) Allergy Intermediate Itching Verified 12/22/24 08:54 vancomycin AdvReac Intermediate Itching Verified 12/22/24 10:52 Active Medications: Current Medications Albuterol Sulfate (Albuterol Sulfate 90 Mcg 8 Gm Inhaler) 2 puff INHALE Q6H PRN PRN Reason: Wheezing Carvedilol (Carvedilol 12.5 Mg Tablet) 12.5 mg PO BID VASILE; Protocol Diphenhydramine HCl (Diphenhydramine Hcl 50 Mg/Ml Vial) 12.5 mg IVPUSH Q6H PRN PRN Reason: Itching Last Admin: 12/22/24 17:05 Dose: 12.5 mg Heparin Sodium (Porcine) (Heparin Sodium,Porcine 5,000 Unit/Ml Vial) 5,000 unit SUBCUT Q12H VASILE Last Admin: 12/22/24 17:03 Dose: Not Given Hydralazine HCl (Hydralazine Hcl 50 Mg Tablet) 50 mg PO TID VASILE; Protocol Hydromorphone HCl (Hydromorphone Hcl 2 Mg Tablet) 4 mg PO Q6H PRN PRN Reason: pain Metoclopramide HCl (Metoclopramide Hcl 10 Mg Tablet) 10 mg PO Q6H PRN PRN Reason: Nausea and Vomiting Home Medications ?Medication ?Instructions ?Recorded ?Confirmed ?Last Taken ?Type albuterol sulfate 90 mcg/actuation 2 puff inhalation Q 6H PRN wheezing 01/15/24 12/22/24 12/09/24 History aerosol inhaler (Ventolin HFA) lidocaine 5 % topical patch 1 patch topical DAILY PRN Pain 01/15/24 12/22/24 12/09/24 History nitroglycerin 0.4 mg sublingual 0.4 mg sublingual D IRECTED PRN 01/15/24 12/22/24 12/09/24 History tablet Angina acetaminophen 325 mg tablet 650 mg PO Q4H PRN mild jamar n 03/11/24 12/22/24 12/09/24 History calcium carbonate (Tums) 200 mg PO TIDWM PRN Acid Ref lux 07/03/24 12/22/24 12/09/24 History Physical Exam 2 Vital Signs and Narrative: Vital Signs: Last Vital Signs Temp 97.3 F 12/22/24 17:19 Pulse 91 12/22/24 17:19 Resp 18 12/22/24 17:19 BP 192/104 H 12/22/24 14:00 Pulse Ox 95 12/22/24 17:19 O2 Del Method Room Air 12/22/24 17:19 O2 Flow Rate 3 12/22/24 14:00 BMI result Body Mass Index 35.2 General:Cooperative, no acute distress, alert and oriented x3 HEENT:Normocephalic, atraumatic. C-collar in place. Cervical tenderness. No meningeal signs. Eyes:Normal appearance, EOMI. Legally blind right eye. Neck:C-collar in place, cervical tenderness. Cardiac:Regular rate and rhythm, normal S1/S2, no murmurs. Respiratory:Clear to auscultation, no distress. GI:Soft, nontender, nondistended. Neuro:Alert, oriented, moves all extremities, no focal deficits. Skin: No rashes. Extremities: - Left foot: Chronic ulcer on plantar as pect, with malodorous, purulent drainage. Mild tenderness. - Right foot: Open draining ulcer on lat eral aspect. Mild tenderness. Foot demonstrates a chronic wound/ulcer on the heel with surrounding skin discoloration, dryness, and an open area with possible infection and local erythema. This is consistent with her known chronic diabetic/ischemic ulcer and chronic osteomyelitis. Results Labs 12/22/24 09:22 12/22/24 09:22 Labs: Laboratory Results - last 24 hr 12/22/24 09:22 MCV 95.8 MCH 30.6 MCHC 32.0 RDW 14.0 Plt Count 93 L MPV 12.7 H Immature Gran % (Auto) 0.2 Neut % (Auto) 70.9 Lymph % (Auto) 14.5 L [place] % (Auto) 9.0 Eos % (Auto) 4.7 H Baso % (Auto) 0.7 Lymph # (Auto) 0.6 L [place] # (Auto) 0.4 Eos # (Auto) 0.2 Baso # (Auto) 0.0 Abs Immat Gran (auto) 0.01 Absolute Neuts (auto) 3.0 Absolute Nucleated RBC 0.000 Nucleated RBC % (auto) 0.0 ESR 47 H Anion Gap 21 H Estim Creat Clear Calc 7.3 Estimated GFR 4 Random Glucose 87 Lactic Acid 0.8 Calcium 8.2 L Magnesium 2.6 Total Bilirubin 0.9 Direct Bilirubin 0.4 AST 33 H ALT 21 Alkaline Phosphatase 150 H C-Reactive Protein 0.95 H Total Protein 7.7 Albumin 4.0 Hold Red Top See Note Imaging Radiologist's Impressions: Impressions Foot X-Ray 12/22/24 09:35 IMPRESSION: 1. Lateral soft tissue wound at the level of the proximal fifth metatarsal. Erosive changes in the fifth metatarsal base, appearing more prominent as compared to previous, highly suspicious for osteomyelitis. This is better evaluated on the recent MRI of 12/11/2024. 2. Additional chronic changes as detailed above. Electronically signed by: Babak Cloud MD 12/22/2024 09:57 AM EDT RP Cervical Spine CT 12/22/24 10:37 IMPRESSION: There is mild reversal of cervical lordosis. This can be related to positioning, muscle spasm, or posterior soft tissue injury. No acute abnormality. Electronically signed by: Juan Alberto Guevara MD 12/22/2024 11:13 AM EDT RP Head CT 12/22/24 10:37 IMPRESSION: There is an area of thickening in the left posterior retina measuring 5 x 16 mm. Recommend ophthalmic follow-up. 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 Chronic right maxillary sinus mucosal thickening. No acute intracranial abnormality. Electronically signed by: Juan Alberto Guevara MD 12/22/2024 11:05 AM EDT RP Assessment and Plan (1) Noncompliance: Status: Acute (2) Opioid dependence: Qualifiers: Substance use status: uncomplicated Qualified Code(s): F11.20 - Opioid dependence, uncomplicated Status: Acute (3) PAD (peripheral artery disease): Status: Acute (4) DM foot ulcer: Qualifiers: Diabetic foot ulcer location: midfoot Diabetes mellitus type: due to underlying condition Laterality: left Non-pressure ulcer stage: unspecified non-pressure ulcer stage Qualified Code(s): E08.621 - Diabetes mellitus due to underlying condition with foot ulcer; L97.429 - Non-pressure chronic ulcer of left heel and midfoot with unspecified severity Status: Acute (5) Hypoglycemia: Status: Acute (6) Gastroparesis: Status: Acute (7) ESRD on dialysis: Status: Acute (8) Renal failure: Qualifiers: Renal failure chronicity: chronic Chronic kidney disease stage: on chronic dialysis Qualified Code(s): N18.6 - End stage renal disease; Z99.2 - Dependence on renal dialysis Status: Acute (9) Hyperkalemia: Status: Acute (10) Anemia: Qualifiers: Anemia type: due to chronic kidney disease Chronic kidney disease stage: on chronic dialysis Qualified Code(s): N18.6 - End stage renal disease; D63.1 - Anemia in chronic kidney disease; Z99.2 - Dependence on renal dialysis Status: Acute (11) Osteomyelitis: Qualifiers: Laterality: right Osteomyelitis location: foot Osteomyelitis type: u nspecified type Qualified Code(s): M86.9 - Osteomyelitis, unspecified Status: Acute (12) Acute osteomyelitis of left foot: Status: Acute (13) Acute pain of left foot: Status: Acute (14) Plantar ulcer of left foot: Qualifiers: Non-pressure ulcer stage: unspecified non-pressure ulcer stage Q ualified Code(s): L97.529 - Non-pressure chronic ulcer of other part of left foot with unspecified severity Status: Acute (15) Cerebral microvascular disease: Status: Acute (16) Relapsing remitting multiple sclerosis: Status: Acute (17) Central pontine myelinolysis: Status: Acute Plan 34-year-old woman with ESRD on hemodialysis (noncompliant), poorly controlled diabetes, PAD s/p bilateral transmetatarsal amputation, chronic left foot osteomyelitis, and multiple recent hospitalizations, presenting after a mechanical fall at home and missed dialysis, with [id number] malodorous drainage from a chronic left foot ulcer (see attached image), but no new systemic or focal symptoms. ESRD on Hemodialysis / Missed Dialysis / Hyperkalemia Patient is chronically noncompliant with dialysis, presenting after missing two sessions, with hyperkalemia (K 6.0), metabolic acidosis, and volume overload risk. No evidence of acute decompensation or uremic symptoms at this time. PLAN * Arrange urgent hemodialysis (coordinated with nephrology). * Monitor electrolytes, volume status, and cardiac rhythm. * Continue temporizing measures for hyperkalemia as needed (already received Lokelma, calcium, albuterol). * Reinforce importance of dialysis adherence; involve case management/social work. Chronic Left Foot Ulcer with Osteomyelitis Chronic, non-healing plantar/lateral foot ulcer with purulent drainage, underlying chronic osteomyelitis (5th metatarsal), previously evaluated by ID and surgery. No current systemic signs of acute infection. Recent oral/IV antibiotics discontinued per ID due to chronicity and lack of acute cellulitis. Amputation (BKA) discussed as a future option. PLAN * Continue local wound care; offload pressure as much as possible. * Monitor for new/worsening signs of acute infection (increasing erythema, warmth, systemic symptoms). * No antibiotics at this time per ID recommendations. * Surgical follow-up for ongoing consideration of BKA. * Pain management as needed. * Wound care nursing consult if available Mechanical Fall / Head Strike / Neck Pain Mechanical fall at home with head strike, headache, and neck pain. No loss of consciousness, no focal neurological deficits. Imaging (CT head/cervical spine) negative for acute findings. C collar was self discontinued PLAN * Monitor for delayed neurological symptoms. * Symptomatic management for headache/neck pain. Uncontrolled Diabetes Mellitus Chronic poor glycemic control, contributing to poor wound healing and infection risk. PLAN * Continue home diabetes regimen. * Monitor blood glucose during admission. * Endocrinology consult if needed for optimization. Hypertension / Cardiomyopathy (HFrEF) Chronic uncontrolled hypertension, HFrEF, and history of decompensated heart failure. BP on admission markedly elevated (205/103). PLAN * Continue home antihypertensives (carvedilol, hydralazine) as tolerated. * Monitor for signs of volume overload or decompensated heart failure. * Titrate antihypertensives as needed. Chronic Pain / Opioid Dependence Chronic pain related to neuropathy, chronic wounds, and prior amputations. History of opioid dependence. PLAN * Continue current pain regimen (acetaminophen, lidocaine patch, PRN opioids). * Monitor for signs of over-sedation or withdrawal. * Consider pain management consult. 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 difficile infection (on fidaxomicin), depression/anxiety, legal blindness. PLAN * Social work/case management for support and adherence. * Monitor for relapses or exacerbations Noncompliance / Frequent Hospitalizations Multiple recent admissions for similar issues, poor adherence to dialysis and medications, limited social support. PLAN * Engage case management and social work for adherence barriers. * Assess for eligibility for home health or VNA services. * Discuss goals of care and advance directives as appropriate. Quality Stroke Does the patient have a stroke diagnosis?: No VTE Prior VTE?: No VTE Risk Level:: Medical - moderate - high VTE Device Contraindication: Treatment Not Indicated VTE Drug Contraindication: N/A - Med Ordered
--- NOTE | 2024-12-22 20:42 | P.CONNP_ITS ---
History of Present Illness Reason for Consult Consult date: 12/22/24 Reason for consult: ESRD and HD management History of Present Illness Narrative: RTANE consulted for ESRD and HD management In summary 34-year-old woman with ESRD on hemodialysis (noncompliant), poorly controlled diabetes, PAD s/p bilateral transmetatarsal amputation, chronic left foot osteomyelitis, and multiple recent hospitalizations, presenting after a mechanical fall at home and missed dialysis, with [id number] malodorous drainage from a chronic left foot ulcer (see attached image) PMH as noted Review of Systems Review of Systems Yes all other systems are reviewed and are negative Constitutional: Reports as per HPI [facility] Past Medical History Medical History Multiple sclerosis Cerebral infarction Hyperkalemia ESRD on dialysis Hypoxia End stage renal disease on dialysis Chronic ulcer of right foot due to diabetes mellitus Chronic ulcer of left foot due to diabetes mellitus DM foot ulcer ESRD on hemodialysis Hypotonic neurogenic bladder Diabetic polyneuropathy Hypertensive emergency Decompensated heart failure Renal failure Hypertension, uncontrolled Medical non-compliance Pericarditis Unspecified hypertension, condition or complication Metabolic acidosis Gastroparesis End stage chronic kidney disease Chronic kidney disease Anemia Plantar ulcer of left foot MDD (major depressive disorder) CKD (chronic kidney disease) Hypertension Vomiting Chronic pain Non-compliance with renal dialysis End-stage renal disease (ESRD) Diabetic foot ulcer associated with type 2 diabetes mellitus Cardiomyopathy HFrEF (heart failure with reduced ejection fraction) delivery delivered Anemia in chronic kidney disease (CKD) CKD (chronic kidney disease) Abnormal finding on echocardiogram Elevated troponin Acute worsening of stage 3 chronic kidney disease Generalized edema Sepsis Cellulitis Pleural effusion Atypical chest pain Bone infection PAD (peripheral artery disease) Cellulitis and abscess of foot Osteomyelitis Asthma Depression with anxiety Diabetic retinopathy Blind right eye Diabetes Back pain Family History Family History Mother Coronary artery disease Myocardial infarction Stroke Diabetes mellitus Father Myocardial infarction Surgical History Surgical History Tubal ligation status Previous section Hx laparoscopic cholecystectomy Hx of surgical procedure (~09/11/23) 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 Social History Social History Household Members: Family Household Members Other:: sister, brother, [id number] Housing: Apartment Housing Other:: Apartment, 1st floor Are you a primary home care music therapist to a significant other at home: No Do you presently have visiting nurse or other home services: Yes Alcohol intake: never Comment: Intermittently refuses Patient Tobacco Use Status: Never used Tobacco Smoked in Last 30 Days: No e-Cigarette/Vaping Use: Never Used Second Hand Smoke Exposure: No Use of substances other than those prescribed or required for medical reasons: No Have you been hit, kicked, punched, or otherwise hurt by someone within the past year? If so, by whom?: No Do you feel safe in your current relationship?: Yes Is there a partner from a previous relationship who is making you feel unsafe now?: No Are you made to feel afraid or neglected: No Advance Directives: Yes Advance Directives on File: Yes Advance Directives Date on File: 08/28/23 Do you have a plan to hurt others: No Plan Patient : No service: No Current occupational status: unemployed and disabled Gender identity: Female Meds Allergies Allergy/AdvReac Type Severity Reaction Status Date / Time gabapentin Allergy Severe Facial Verified 12/22/24 08:54 Swelling tramadol Allergy Severe Facial Verified 12/22/24 08:54 Swelling azithromycin (From Zithromax) Allergy Intermediate Hives Verified 12/22/24 08:54 morphine (MORPHINE) Allergy Intermediate Itching Verified 12/22/24 08:54 vancomycin AdvReac Intermediate Itching Verified 12/22/24 10:52 Active Medications: Current Medications Albuterol Sulfate (Albuterol Sulfate 90 Mcg 8 Gm Inhaler) 2 puff INHALE Q6H PRN PRN Reason: Wheezing Carvedilol (Carvedilol 12.5 Mg Tablet) 12.5 mg PO BID [facility]; Protocol Last Admin: 12/22/24 20:37 Dose: Not Given Diphenhydramine HCl (Diphenhydramine Hcl 50 Mg/Ml Vial) 12.5 mg IVPUSH Q6H PRN PRN Reason: Itching Last Admin: 12/22/24 17:05 Dose: 12.5 mg Heparin Sodium (Porcine) (Heparin Sodium,Porcine 5,000 Unit/Ml Vial) 5,000 unit SUBCUT Q12H [facility] Last Admin: 12/22/24 17:03 Dose: Not Given Hydralazine HCl (Hydralazine Hcl 50 Mg Tablet) 50 mg PO TID [facility]; Protocol Last Admin: 12/22/24 20:38 Dose: Not Given Hydralazine HCl (Hydralazine Hcl 20 Mg/Ml Vial) 10 mg IVPUSH Q6H PRN; Protocol PRN Reason: SBP > 160 Last Admin: 12/22/24 20:32 Dose: 10 mg Hydromorphone HCl (Hydromorphone Hcl 2 Mg Tablet) 4 mg PO Q6H PRN PRN Reason: pain Metoclopramide HCl (Metoclopramide Hcl 10 Mg Tablet) 10 mg PO Q6H PRN PRN Reason: Nausea and Vomiting Oxycodone HCl (Oxycodone Hcl Immed Release 5 Mg Tablet) 5 mg PO Q6H PRN PRN Reason: Pain, Moderate(Pain Scale 4-6) Home Medications ?Medication ?Instructions ?Recorded ?Confirmed ?Last Taken ?Type albuterol sulfate 90 mcg/actuation 2 puff inhalation Q 6H PRN wheezing 01/15/24 12/22/24 12/09/24 History aerosol inhaler (Ventolin HFA) lidocaine 5 % topical patch 1 patch topical DAILY PRN Pain 01/15/24 12/22/24 12/09/24 History nitroglycerin 0.4 mg sublingual 0.4 mg sublingual D IRECTED PRN 01/15/24 12/22/24 12/09/24 History tablet Angina acetaminophen 325 mg tablet 650 mg PO Q4H PRN mild jamar n 03/11/24 12/22/24 12/09/24 History calcium carbonate (Tums) 200 mg PO TIDWM PRN Acid Ref lux 07/03/24 12/22/24 12/09/24 History Physical Exam Vital Signs: Last Vital Signs Temp 97.2 F 12/22/24 19:44 Pulse 88 12/22/24 19:44 Resp 17 12/22/24 19:44 BP 170/120 H 12/22/24 19:44 Pulse Ox 95 12/22/24 19:44 O2 Del Method Room Air 12/22/24 19:44 O2 Flow Rate 3 12/22/24 14:00 BMI result Body Mass Index 35.2 Const General: cooperative, healthy appearing, comfortable and no acute distress Orientation/consciousness: patient oriented x3 Limitations: no limitations HEENT Head: Yes normal to inspection and Yes atraumatic Ears: hearing grossly normal bilaterally General nose exam: Normal external nose present Face and sinus: Yes normal facial exam Eyes General: appearance normal, both eyes and all related structures EOM: EOMs intact bilaterally Neck Other: C-collar in place. Cervical tenderness noted. Neck: Yes normal visual inspection and Yes no meningeal signs Resp Effort & Inspection: normal respiratory effort and no respiratory distress Auscultation: clear to auscultation bilaterally, no crackles and no wheezes Cardio Rate: regular rate Heart sounds: S1 normal heart sound present and S2 normal heart sound present GI Inspection: Yes normal to inspection Palpation (GI): Soft to palpation, nontender, no guarding and not rigid General: Yes no CVA tenderness Back/Spine/Pelvis Other: No midline cervical/thoracic/lumbar spinous tenderness/step-off or deformity Back: no CVA tenderness Skin Rashes: no rashes Wounds: no wounds Neuro General: patient oriented x3, tone normal, moves all extremities, no meningeal signs and no focal motor deficits Cranial nerves: Yes CN's II-XII intact bilaterally Gait exam (Neuro): Normal gait present Extrem Other: Bilateral TMA left foot: 4x4 cm ulcer on the plantar ascpect of the foot, scant serosanguenious drainage.thick callous on the surrounding wound border. lateral foot ulcer, very tender, limiting exam. there was a small fluid collection jsut superior to the wound that expressed some fluid through the wound. malodor. General: Yes normal to inspection Results Lab Results 12/22/24 09:22 12/22/24 09:22 Lab results: Chemistry 12/22/24 09:22 Sodium 139 Potassium 6.0 H* Carbon Dioxide 20 L BUN 85 H Creatinine 11.65 H* Calcium 8.2 L Hematology 12/22/24 09:22 WBC 4.2 L Hgb 9.4 L Plt Count 93 L Assessment and Plan (1) Noncompliance: Status: Acute (2) Opioid dependence: Qualifiers: Substance use status: uncomplicated Qualified Code(s): F11.20 - Opioid dependence, uncomplicated Status: Acute (3) PAD (peripheral artery disease): Status: Acute (4) DM foot ulcer: Qualifiers: Diabetic foot ulcer location: midfoot Diabetes mellitus type: due to underlying condition Laterality: left Non-pressure ulcer stage: unspecified non-pressure ulcer stage Qualified Code(s): E08.621 - Diabetes mellitus due to underlying condition with foot ulcer; L97.429 - Non-pressure chronic ulcer of left heel and midfoot with unspecified severity Status: Acute (5) Hypoglycemia: Status: Acute (6) Gastroparesis: Status: Acute (7) ESRD on dialysis: Status: Acute (8) Renal failure: Qualifiers: Chronic kidney disease stage: on chronic dialysis Renal failure chronicity: chronic Qualified Code(s): N18.6 - End stage renal disease; Z99.2 - Dependence on renal dialysis Status: Acute (9) Hyperkalemia: Status: Acute (10) Anemia: Qualifiers: Anemia type: due to chronic kidney disease Chronic kidney disease stage: on chronic dialysis Qualified Code(s): N18.6 - End stage renal disease; D63.1 - Anemia in chronic kidney disease; Z99.2 - Dependence on renal dialysis Status: Acute (11) Osteomyelitis: Qualifiers: Laterality: right Osteomyelitis location: foot Osteomyelitis type: u nspecified type Qualified Code(s): M86.9 - Osteomyelitis, unspecified Status: Acute (12) Acute osteomyelitis of left foot: Status: Acute (13) Acute pain of left foot: Status: Acute (14) Plantar ulcer of left foot: Qualifiers: Non-pressure ulcer stage: unspecified non-pressure ulcer stage Q ualified Code(s): L97.529 - Non-pressure chronic ulcer of other part of left foot with unspecified severity Status: Acute (15) Cerebral microvascular disease: Status: Acute (16) Relapsing remitting multiple sclerosis: Status: Acute (17) Central pontine myelinolysis: Status: Acute Plan ESRD: usu TTS, missed Tx Sat; HD today abd then again tmw to get back on TTS HypeerK: HD today and low K diet and Lokelma prn HTN: cont usu BP meds and incr as needed Nephrogenic Anmeia Will follow w team Procedures Date of Service Date of Service: 12/22/24
--- NOTE | 2024-12-22 23:52 | PC.NURSE ---
At 1944 patients blood pressure was 170/120. Pt refused to take her PO blood pressure medications. Notified Chasity Garzon of high blood pressure and patients refusal of her oral BP meds. Orders received to administer prn IV hydralazine to help lower blood pressure. Patient was accepting to IV administration of hydralazine. Assessment after administration of this medication showed good effect as BP decreased to 162/84.
[2024-12-23] VITALS (8 sets, daily range): BP systolic 168–203; BP diastolic 81–104; PULSE 87–96; RESP 16–19; TEMP 36.3–36.6; O2SAT 94–97
--- NOTE | 2024-12-23 07:19 | PC.NURSE ---
conveyor monitor tech notified this RN of patients 6 beats of Vtach on tele monitor. Chasity Garzon notified. Patient asymptomatic. Labs were ordered.
--- NOTE | 2024-12-23 09:53 | PC.NURSE ---
Patient off unit at dialysis
--- NOTE | 2024-12-23 10:47 | P.PNGS_ITS ---
Subjective Subjective Date of Service: 12/23/24 Interval history: No new complaints. Continues to have pain in only the left foot. From just above the ankle down to the remainder of the foot. Denies fevers or chills Physical Exam 2 Vital Signs: Vital Signs: Last Vital Signs Temp 97.8 F 12/23/24 07:38 Pulse 94 12/23/24 07:38 Resp 18 12/23/24 07:38 BP 179/84 H 12/23/24 07:38 Pulse Ox 95 12/23/24 07:38 O2 Del Method Room Air 12/23/24 07:38 O2 Flow Rate 3 12/22/24 14:00 BMI result Body Mass Index 35.2 Const: General: comfortable and no acute distress O rientation/consciousness: patient oriented x3 Neuro: General: patient oriented x3 Extrem: Other: Bilateral TMA left foot: 4x4 cm ulcer on the plantar ascpect of the foot, scant serosanguenious drainage.thick callous on the surrounding wound border. lateral foot ulcer, very tender, limiting exam. there was a small fluid collection jsut superior to the wound that expressed some fluid through the wound. malodor. Right foot: 4 and half by 5 cm wound on the distal plantar aspect of right foot. Minimal drainage, nontender, no erythema, no fluctuance or purulence thick callus around the wound border, there is a central area of granulation tissue appears stable Objective Data Active Medications Albuterol Sulfate (Albuterol Sulfate 90 Mcg 8 Gm Inhaler) 2 puff INHALE Q6H PRN PRN Reason: Wheezing Carvedilol (Carvedilol 12.5 Mg Tablet) 12.5 mg PO BID [facility]; Protocol Last Admin: 12/23/24 09:35 Dose: Not Given Documented By: BOWEN Non-Admin Reason: Patient Refused Comments: patient educated regarding elevated BP and medication Diphenhydramine HCl (Diphenhydramine Hcl 50 Mg/Ml Vial) 12.5 mg IVPUSH Q6H PRN PRN Reason: Itching Last Admin: 12/23/24 07:07 Dose: 12.5 mg Documented By: KATIE Heparin Sodium (Porcine) (Heparin Sodium,Porcine 5,000 Unit/Ml Vial) 5,000 unit SUBCUT Q12H [facility] Last Admin: 12/23/24 04:42 Dose: Not Given Documented By: KATIE Non-Admin Reason: Patient Refused Hydralazine HCl (Hydralazine Hcl 50 Mg Tablet) 50 mg PO TID [facility]; Protocol Last Admin: 12/23/24 09:35 Dose: Not Given Documented By: BOWEN Non-Admin Reason: Patient Refused Comments: patient educated regarding elevated BP and medication Hydralazine HCl (Hydralazine Hcl 20 Mg/Ml Vial) 10 mg IVPUSH Q6H PRN; Protocol PRN Reason: SBP > 160 Last Admin: 12/22/24 20:32 Dose: 10 mg Documented By: KATIE Hydromorphone HCl (Hydromorphone Hcl 2 Mg Tablet) 4 mg PO Q6H PRN PRN Reason: pain Last Admin: 12/23/24 07:05 Dose: 4 mg Documented By: KATIE Metoclopramide HCl (Metoclopramide Hcl 10 Mg Tablet) 10 mg PO Q6H PRN PRN Reason: Nausea and Vomiting Oxycodone HCl (Oxycodone Hcl Immed Release 5 Mg Tablet) 5 mg PO Q6H PRN PRN Reason: Pain, Moderate(Pain Scale 4-6) Labs 12/22/24 09:22 12/22/24 09:22 Procedures Date of Service Date of Service: 12/23/24 Progress Note: A&P Assessment and plan (1) Acute osteomyelitis of left foot: Status: Acute (2) DM foot ulcer: Status: Acute Plan 34 year old female with a complicated medical history including ESRD on dialysis, PAD, MS, chronic osteomyelitis. Recently admitted earlier this month, found to have chronic OM of the remaining left fifth metatarsal. Was discharged for wound care and abx. General surgery following for chronic foot wounds. She states that her sister has been doing wound care for her and notice over the past few days that there has been more purulent drainage and malodorous, now more painful. On exam there was a 2.5 x 2.5 cm open wound on the lateral aspect of the 5th metatarsal, exquisitely tender to palpation. there was a small area of fluctuance superior to the wound that when palpated allowed for more purulent drainage from the wound. Was unable to probe this due to pain. Additionally there is a 3.5x3.5 cm wound on the plantar aspect of the wound, minimal serosanguenious drainage, and a thick callous around the wound border. These were dressed with durafiber, guaze and kerlix. Daily wound care No antibiotic recommendations per ID Plan for left BKA Sunday, has been tentatively added onto the OR schedule, we will discuss this plan with patient tomorrow morning. Patient receiving hemodialysis Sunday should optimize her vaious medical comorbidities prior to surgery. Time Spent With Patient Time: Total time managing care of this patient today ____ minutes. Quality Stroke Does the patient have a stroke diagnosis?: No VTE Prior VTE?: No VTE Risk Level:: Medical - moderate - high VTE Device Contraindication: Treatment Not Indicated VTE Drug Contraindication: N/A - Med Ordered
--- NOTE | 2024-12-23 13:19 | PC.NURSE ---
Patient returned to unit from dialysis. Patient asking for IV pain medication due to nausea caused from PO. Reached out to provider Marlys via [employer], awaiting orders as verbally discussed with provider earlier that IV pain medications would be ordered. Education provided to patient.
--- NOTE | 2024-12-23 13:51 | MHC.CM.PN ---
Status change to inpatient. IMM delivered.
--- NOTE | 2024-12-23 14:03 | PC.NURSE ---
Patient had elevated BP, she refused morning PO blood pressures medication due to having dialysis - Provider Marlys aware of refusal. After returning from dialysis, patient's BP 203/104 and manual BP 188/90, patient stated she would now take her PO medication. Reached out to provider Marlys via [employer], provider ordered to give morning Carvedilol now and give Hydralazine 15:00 early. Medications administered along with IV PRN Dilaudid as patient was reporting pain.
--- NOTE | 2024-12-23 14:33 | P.PNIM_ITS ---
Subjective Subjective Date of Service: 12/23/24 Interval History: Significant noncompliance today. Refusing all medications. Insisting on IV Dilaudid. Currently receiving hemodialysis. Endorses nausea and vomiting, with inability to tolerate p.o. medications Regarding the patient's chronic osteomyelitis, surgery is planning inpatient surgical intervention on Sunday. Plan is to optimize the patient's medical care, prior to proceeding for surgery Review of Systems Review of Systems: Yes all other systems are reviewed and are negative Physical Exam 2 Exam: Exam: General:Cooperative, no acute distress, alert and oriented x3 HEENT:Normocephalic, atraumatic. Cervical tenderness. No meningeal signs. Eyes:Normal appearance, EOMI. Legally blind right eye. Neck: cervical tenderness. Cardiac:Regular rate and rhythm, normal S1/S2, no murmurs. Respiratory:Clear to auscultation, no distress. GI:Soft, nontender, nondistended. Neuro:Alert, oriented, moves all extremities, no focal deficits. Skin: No rashes. Extremities: - Left foot: Chronic ulcer on plantar as pect, with malodorous, purulent drainage. Mild tenderness. - Right foot: Open draining ulcer on lat eral aspect. Mild tenderness. Foot demonstrates a chronic wound/ulcer on the heel with surrounding skin discoloration, dryness, and an open area with possible infection and local erythema. This is consistent with her known chronic diabetic/ischemic ulcer and chronic osteomyelitis. Vital Signs: Vital Signs: Last Vital Signs Temp 97.8 F 12/23/24 07:38 Pulse 96 12/23/24 13:59 Resp 16 12/23/24 13:39 BP 188/90 H 12/23/24 13:59 Pulse Ox 96 12/23/24 13:39 O2 Del Method Room Air 12/23/24 13:39 O2 Flow Rate 3 12/22/24 14:00 BMI result Body Mass Index 35.2 Objective Data Active Medications Albuterol Sulfate (Albuterol Sulfate 90 Mcg 8 Gm Inhaler) 2 puff INHALE Q6H PRN PRN Reason: Wheezing Carvedilol (Carvedilol 12.5 Mg Tablet) 12.5 mg PO BID [facility]; Protocol Last Admin: 12/23/24 13:59 Dose: 12.5 mg Documented By: BOWEN Comments: via [employer] provider ordered to administer now due to elevated BP. Diphenhydramine HCl (Diphenhydramine Hcl 50 Mg/Ml Vial) 12.5 mg IVPUSH Q6H PRN PRN Reason: Itching Last Admin: 12/23/24 13:23 Dose: 12.5 mg Documented By: BOWEN Heparin Sodium (Porcine) (Heparin Sodium,Porcine 5,000 Unit/Ml Vial) 5,000 unit SUBCUT Q12H [facility] Last Admin: 12/23/24 04:42 Dose: Not Given Documented By: KATIE Non-Admin Reason: Patient Refused Hydralazine HCl (Hydralazine Hcl 50 Mg Tablet) 50 mg PO TID [facility]; Protocol Last Admin: 12/23/24 13:56 Dose: 50 mg Documented By: BOWEN Comments: okay to give early per MD Frankel via [employer]. Hydralazine HCl (Hydralazine Hcl 20 Mg/Ml Vial) 10 mg IVPUSH Q6H PRN; Protocol PRN Reason: SBP > 160 Last Admin: 12/22/24 20:32 Dose: 10 mg Documented By: KATIE Hydromorphone HCl (Hydromorphone Hcl 2 Mg Tablet) 4 mg PO Q6H PRN PRN Reason: pain Last Admin: 12/23/24 07:05 Dose: 4 mg Documented By: KATIE Hydromorphone HCl (Hydromorphone Hcl 1 Mg/Ml Syringe) 1 mg IVPUSH Q6H PRN; Protocol PRN Reason: Pain, Severe (Pain Scale 7-10) Last Admin: 12/23/24 13:55 Dose: 1 mg Documented By: BOWEN Metoclopramide HCl (Metoclopramide Hcl 10 Mg Tablet) 10 mg PO Q6H PRN PRN Reason: Nausea and Vomiting Oxycodone HCl (Oxycodone Hcl Immed Release 5 Mg Tablet) 5 mg PO Q6H PRN PRN Reason: Pain, Moderate(Pain Scale 4-6) Labs 12/22/24 09:22 12/22/24 09:22 Microbiology Microbiology Results: Microbiology 12/22/24 09:22 Blood Culture - Preliminary Blood - Venous No growth after 24 hours. 12/22/24 09:22 Blood Culture - Preliminary Blood - Venous No growth after 24 hours. Assessment and Plan (1) Opioid dependence: Status: Acute (2) PAD (peripheral artery disease): Status: Acute (3) Noncompliance: Status: Acute (4) ESRD on dialysis: Status: Acute (5) Osteomyelitis: Status: Acute (6) Plantar ulcer of left foot: Status: Acute (7) Relapsing remitting multiple sclerosis: Status: Acute (8) Central pontine myelinolysis: Status: Acute Plan 34-year-old woman with ESRD on hemodialysis (noncompliant), poorly controlled diabetes, PAD s/p bilateral transmetatarsal amputation, chronic left foot osteomyelitis, and multiple recent hospitalizations, presenting after a mechanical fall at home and missed dialysis, with [id number] malodorous drainage from a chronic left foot ulcer (see attached image), but no new systemic or focal symptoms. ESRD on Hemodialysis / Missed Dialysis / Hyperkalemia Patient is chronically noncompliant with dialysis, presenting after missing two sessions, with hyperkalemia (K 6.0), metabolic acidosis, and volume overload risk. No evidence of acute decompensation or uremic symptoms at this time. PLAN * Arrange urgent hemodialysis (coordinated with nephrology). * Monitor electrolytes, volume status, and cardiac rhythm. * Continue temporizing measures for hyperkalemia as needed (already received Lokelma, calcium, albuterol). * Reinforce importance of dialysis adherence; involve case management/social work. Chronic Left Foot Ulcer with Osteomyelitis Chronic, non-healing plantar/lateral foot ulcer with purulent drainage, underlying chronic osteomyelitis (5th metatarsal), previously evaluated by ID and surgery. No current systemic signs of acute infection. Recent oral/IV antibiotics discontinued per ID due to chronicity and lack of acute cellulitis. Amputation (BKA) discussed as a future option. PLAN * Continue local wound care; offload pressure as much as possible. * Monitor for new/worsening signs of acute infection (increasing erythema, warmth, systemic symptoms). * No antibiotics at this time per ID recommendations. * Surgical follow-up for ongoing consideration of BKA. * Pain management as needed. * Wound care nursing consult if available Mechanical Fall / Head Strike / Neck Pain Mechanical fall at home with head strike, headache, and neck pain. No loss of consciousness, no focal neurological deficits. Imaging (CT head/cervical spine) negative for acute findings. C collar was self discontinued PLAN * Monitor for delayed neurological symptoms. * Symptomatic management for headache/neck pain. Uncontrolled Diabetes Mellitus Chronic poor glycemic control, contributing to poor wound healing and infection risk. PLAN * Continue home diabetes regimen. * Monitor blood glucose during admission. * Endocrinology consult if needed for optimization. Hypertension / Cardiomyopathy (HFrEF) Chronic uncontrolled hypertension, HFrEF, and history of decompensated heart failure. BP on admission markedly elevated (205/103). PLAN * Continue home antihypertensives (carvedilol, hydralazine) as tolerated. * Monitor for signs of volume overload or decompensated heart failure. * Titrate antihypertensives as needed. Chronic Pain / Opioid Dependence Chronic pain related to neuropathy, chronic wounds, and prior amputations. History of opioid dependence. PLAN * Continue current pain regimen (acetaminophen, lidocaine patch, PRN opioids). * Monitor for signs of over-sedation or withdrawal. * Consider pain management consult. 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 difficile infection (on fidaxomicin), depression/anxiety, legal blindness. PLAN * Social work/case management for support and adherence. * Monitor for relapses or exacerbations Noncompliance / Frequent Hospitalizations Multiple recent admissions for similar issues, poor adherence to dialysis and medications, limited social support. PLAN * Engage case management and social work for adherence barriers. * Assess for eligibility for home health or VNA services. * Discuss goals of care and advance directives as appropriate. QU[employer] - VTE: Heparin 5000 t.i.d. - CODE STATUS: Full code - DIET: Renal Total time managing care of this patient today: 35 minutes. Quality Stroke Does the patient have a stroke diagnosis?: No VTE Prior VTE?: No VTE Risk Level:: Medical - moderate - high VTE Device Contraindication: Treatment Not Indicated VTE Drug Contraindication: N/A - Med Ordered
--- NOTE | 2024-12-23 15:52 | P.PNNP_ITS ---
Subjective Subjective Date of Service: 12/23/24 Interval history: Seen and examined,e vents notd Physical Exam 2 Vital Signs: Vital Signs: Last Vital Signs Temp 97.8 F 12/23/24 07:38 Pulse 96 12/23/24 13:59 Resp 16 12/23/24 13:39 BP 188/90 H 12/23/24 13:59 Pulse Ox 96 12/23/24 13:39 O2 Del Method Room Air 12/23/24 13:39 O2 Flow Rate 3 12/22/24 14:00 BMI result Body Mass Index 35.2 Const: General: cooperative, healthy appearing, comfortable and no acute distress Orientation/consciousness: patient oriented x3 Limitations: no limitations HEENT: Head: Yes normal to inspection and Yes atraumatic Ears: hearing grossly normal bilaterally General nose exam: Normal external nose present Face and sinus: Yes normal facial exam Eyes: General: appearance normal, both eyes and all related structures EOM: EOMs intact bilaterally Neck: Other: C-collar in place. Cervical tenderness noted. Neck: Yes normal visual inspection and Yes no meningeal signs Resp: Effort & Inspection: normal respiratory effort and no respiratory distress Auscultation: clear to auscultation bilaterally, no crackles and no wheezes Cardio: Rate: regular rate Heart sounds: S1 normal heart sound present and S2 normal heart sound present GI: Inspection: Yes normal to inspection Palpation (GI): Soft to palpation, nontender, no guarding and not rigid : General: Yes no CVA tenderness Back/Spine/Pelvis: Other: No midline cervical/thoracic/lumbar spinous tenderness/step-off or deformity Back: no CVA tenderness Skin: Rashes: no rashes Wounds: no wounds Neuro: General: patient oriented x3, tone normal, moves all extremities, no meningeal signs and no focal motor deficits Cranial nerves: Yes CN's II-XII intact bilaterally Gait exam (Neuro): Normal gait present Extrem: Other: Bilateral TMA left foot: 4x4 cm ulcer on the plantar ascpect of the foot, scant serosanguenious drainage.thick callous on the surrounding wound border. lateral foot ulcer, very tender, limiting exam. there was a small fluid collection jsut superior to the wound that expressed some fluid through the wound. malodor. General: Yes normal to inspection Objective Data Labs 12/22/24 09:22 12/22/24 09:22 Microbiology Microbiology Results: Microbiology 12/22/24 09:22 Blood - Venous Blood Culture - Preliminary No growth after 24 hours. 12/22/24 09:22 Blood - Venous Blood Culture - Preliminary No growth after 24 hours. Procedures Date of Service Date of Service: 12/23/24 Assessment & Plan Assessment and plan (1) Noncompliance: Status: Acute (2) Opioid dependence: Status: Acute (3) PAD (peripheral artery disease): Status: Acute (4) DM foot ulcer: Status: Acute (5) Hypoglycemia: Status: Acute (6) Gastroparesis: Status: Acute (7) ESRD on dialysis: Status: Acute (8) Renal failure: Status: Acute (9) Hyperkalemia: Status: Acute (10) Anemia: Status: Acute (11) Osteomyelitis: Status: Acute (12) Acute osteomyelitis of left foot: Status: Acute (13) Acute pain of left foot: Status: Acute (14) Plantar ulcer of left foot: Status: Acute (15) Cerebral microvascular disease: Status: Acute (16) Relapsing remitting multiple sclerosis: Status: Acute (17) Central pontine myelinolysis: Status: Acute Plan ESRD: usu TTS, missed Tx Sat; HD yesterday abd again today to get back on TTS HyperK: HD today and low K diet and Lokelma prn HTN: cont usu BP meds and incr as needed Nephrogenic Anmeia Will follow w team Time Spent With Patient Time: Total time managing care of this patient today ____ minutes. Progress Note: Quality Stroke Does the patient have a stroke diagnosis?: No
[2024-12-23 16:12] LABS: Anion Gap 17 (12-20); Blood Urea Nitrogen 28 mg/dL (9-16); Calcium 8.7 mg/dL (8.4-10.2); Carbon Dioxide 26 mmol/L (22-29); Chloride 101 mmol/L (96-108); Creatinine Clr Calc Pharmacy 15.5; Estimated Glomerular Filt Rate 9; Potassium 4.6 mmol/L (3.3-5.1); Sodium 139 mmol/L (135-145)
[2024-12-23 16:45] LABS: Hematocrit 30.9 % (37.0-47.0); Hemoglobin 10.3 g/dl (12.0-16.0); Mean Corpuscular HGB Conc 33.3 g/dl (31.0-35.0); Mean Corpuscular Hemoglobin 30.6 pg (27.0-33.0); Mean Corpuscular Volume 91.7 fL (80.0-98.0); NRBC Abs Auto 0.000 X10*3/uL (0.0-0.012); NRBC Pct Auto 0.0 /100WBC (0.0-0.2); PLT CLUMP 1; Red Blood Count 3.37 X10*6/uL (4.20-5.50); SCAN SMEAR FLAG 1
[2024-12-23 19:01] LABS: White Blood Count 5.3 X10*3/uL (4.8-10.8)
[2024-12-23 19:29] LABS: Imm Gran Abs Auto 0.05 X10*3/uL (0.00-0.03); Imm Gran Pct Auto 1.0 % (0.0-0.4); Lymphocytes Absolute Auto 0.5 X10*3/uL (1.2-4.9); MANUAL DIFF FLAG SCAN
[2024-12-24 04:00] VITALS: BP 129/62; PULSE 82; RESP 18; TEMP 36.1; O2SAT 90
--- NOTE | 2024-12-24 05:55 | PC.NURSE ---
Addendum entered by Kirk Dukes RN 12/24/24 05:59: patient said she wants them drawn later Original Note: patient refused morning labs
[2024-12-24 07:29] VITALS: BP 137/66; PULSE 80; RESP 18; TEMP 36; O2SAT 94
[2024-12-24 10:11] LABS: Hematocrit 28.7 % (37.0-47.0); Hemoglobin 9.3 g/dl (12.0-16.0); Imm Gran Abs Auto 0.01 X10*3/uL (0.00-0.03); Imm Gran Pct Auto 0.3 % (0.0-0.4); Lymphocytes Absolute Auto 0.5 X10*3/uL (1.2-4.9); Mean Corpuscular HGB Conc 32.4 g/dl (31.0-35.0); Mean Corpuscular Hemoglobin 30.6 pg (27.0-33.0); Mean Corpuscular Volume 94.4 fL (80.0-98.0); NRBC Abs Auto 0.000 X10*3/uL (0.0-0.012); NRBC Pct Auto 0.0 /100WBC (0.0-0.2); Red Blood Count 3.04 X10*6/uL (4.20-5.50); White Blood Count 3.3 X10*3/uL (4.8-10.8)
[2024-12-24 10:13] LABS: Platelet Count 75 X10*3/uL (160-400)
[2024-12-24 10:16] LABS: Anion Gap 15 (12-20); Blood Urea Nitrogen 40 mg/dL (9-16); Calcium 8.4 mg/dL (8.4-10.2); Carbon Dioxide 23 mmol/L (22-29); Chloride 103 mmol/L (96-108); Creatinine Clr Calc Pharmacy 11.3; Estimated Glomerular Filt Rate 6; Potassium 5.0 mmol/L (3.3-5.1); Sodium 136 mmol/L (135-145)
--- NOTE | 2024-12-24 12:55 | P.PNGS_ITS ---
Subjective Subjective Date of Service: 12/24/24 <Regino Sauceda PA-C - Last Filed: 12/24/24 12:59> 12/26/24 <Tu Rajput MD - Last Filed: 12/26/24 15:48> Interval history: No acute changes. Pain in left foot, denies pain in right foot. <Regino Sauceda PA-C - Last Filed: 12/24/24 12:59> Physical Exam 2 Vital Signs: Vital Signs: Last Vital Signs Temp 96.8 F 12/24/24 07:29 Pulse 80 12/24/24 07:29 Resp 18 12/24/24 07:29 BP 137/66 12/24/24 07:29 Pulse Ox 94 12/24/24 07:29 O2 Del Method Room Air 12/24/24 07:29 O2 Flow Rate 3 12/22/24 14:00 BMI result Body Mass Index 35.2 <Regino Sauceda PA-C - Last Filed: 12/24/24 12:59> Const: General: comfortable and no acute distress <Regino Sauceda PA-C - Last Filed: 12/24/24 12:59> Orientation/consciousness: patient oriented x3 <Regino Sauceda PA-C - Last Filed: 12/24/24 12:59> Neuro: General: patient oriented x3 <LEXA Gomez Last Filed: 12/24/24 12:59> Extrem: Other: Bilateral TMA left foot: 4x4 cm ulcer on the plantar ascpect of the foot, scant serosanguenious drainage.thick callous on the surrounding wound border. lateral foot ulcer, very tender, limiting exam. there is scant purulent drainage expressed, limited by pain, no malodor. Right foot: 4 and half by 5 cm wound on the distal plantar aspect of right foot. Small volume serosanguineous drainage, nontender, no erythema, no fluctuance or purulence thick callus around the wound border, there is a central area of granulation tissue appears stable <LEXA Gomez Last Filed: 12/24/24 12:59> Objective Data Active Medications Albuterol Sulfate (Albuterol Sulfate 90 Mcg 8 Gm Inhaler) 2 puff INHALE Q6H PRN PRN Reason: Wheezing Carvedilol (Carvedilol 12.5 Mg Tablet) 12.5 mg PO BID [facility]; Protocol Last Admin: 12/24/24 10:00 Dose: Not Given Documented By: BOWEN Non-Admin Reason: Patient Refused Diphenhydramine HCl (Diphenhydramine Hcl 50 Mg/Ml Vial) 12.5 mg IVPUSH Q6H PRN PRN Reason: Itching Last Admin: 12/24/24 09:54 Dose: 12.5 mg Documented By: BOWEN Heparin Sodium (Porcine) (Heparin Sodium,Porcine 5,000 Unit/Ml Vial) 5,000 unit SUBCUT Q12H [facility] Last Admin: 12/24/24 05:01 Dose: Not Given Documented By: ETHEL Non-Admin Reason: Patient Refused Hydralazine HCl (Hydralazine Hcl 50 Mg Tablet) 50 mg PO TID [facility]; Protocol Last Admin: 12/24/24 10:00 Dose: Not Given Documented By: BOWEN Non-Admin Reason: Patient Refused Hydralazine HCl (Hydralazine Hcl 20 Mg/Ml Vial) 10 mg IVPUSH Q6H PRN; Protocol PRN Reason: SBP > 160 Last Admin: 12/22/24 20:32 Dose: 10 mg Documented By: KATIE Hydromorphone HCl (Hydromorphone Hcl 2 Mg Tablet) 4 mg PO Q6H PRN PRN Reason: pain Last Admin: 12/23/24 07:05 Dose: 4 mg Documented By: KATIE Hydromorphone HCl (Hydromorphone Hcl 1 Mg/Ml Syringe) 1 mg IVPUSH Q6H PRN; Protocol PRN Reason: Pain, Severe (Pain Scale 7-10) Last Admin: 12/24/24 09:54 Dose: 1 mg Documented By: BOWEN Metoclopramide HCl (Metoclopramide Hcl 10 Mg Tablet) 10 mg PO Q6H PRN PRN Reason: Nausea and Vomiting Ondansetron HCl (Ondansetron Hcl 4 Mg/2 Ml Vial) 4 mg IVPUSH Q6H PRN PRN Reason: Nausea and Vomiting Oxycodone HCl (Oxycodone Hcl Immed Release 5 Mg Tablet) 5 mg PO Q6H PRN PRN Reason: Pain, Moderate(Pain Scale 4-6) <Regino Komal, PA-C - Last Filed: 12/24/24 12:59> Labs CBC & Chem 7: 12/24/24 09:48 12/24/24 09:48 <Regino Sauceda PA-C - Last Filed: 12/24/24 12:59> Labs: Laboratory Results - last 24 hr 12/23/24 12/23/24 12/24/24 14:48 16:28 09:48 MCV 91.7 94.4 MCH 30.6 30.6 MCHC 33.3 32.4 RDW 13.9 14.0 Plt Count Not Reportable 75 L MPV 12.1 13.3 H Immature Gran % (Auto) 1.0 H 0.3 Neut % (Auto) 73.0 62.4 Lymph % (Auto) 9.5 L 16.5 L [place] % (Auto) 10.5 13.8 H Eos % (Auto) 5.2 H 5.8 H Baso % (Auto) 0.8 1.2 Lymph # (Auto) 0.5 L 0.5 L [place] # (Auto) 0.5 0.5 Eos # (Auto) 0.3 0.2 Baso # (Auto) 0.0 0.0 Abs Immat Gran (auto) 0.05 H 0.01 Absolute Neuts (auto) 3.6 2.0 Absolute Nucleated RBC 0.000 0.000 Nucleated RBC % (auto) 0.0 0.0 Smear Tech's Comments VERIFIED Anion Gap 17 15 Estim Creat Clear Calc 15.5 11.3 Estimated GFR 9 6 Random Glucose 143 H 162 H Calcium 8.7 D 8.4 <Regino Sauceda PA-C - Last Filed: 12/24/24 12:59> Microbiology Microbiology Results: Microbiology 12/22/24 09:22 Blood Culture - Preliminary Blood - Venous No growth after 48 hours. 12/22/24 09:22 Blood Culture - Preliminary Blood - Venous No growth after 48 hours. <Regino Sauceda PA-C - Last Filed: 12/24/24 12:59> Procedures Date of Service Date of Service: 12/24/24 <Regino Sauceda PA-C - Last Filed: 12/24/24 12:59> 12/26/24 <Tu Rajput MD - Last Filed: 12/26/24 15:48> Progress Note: A&P Assessment and plan (1) Acute osteomyelitis of left foot: Status: Resolved <Regino Sauceda PA-C - Last Filed: 12/24/24 12:59> Assessment and Plan: Agree with PA note I have seen and examined the patient independently <Tu Rajput MD - Last Filed: 12/26/24 15:48> (2) DM foot ulcer: Status: Resolved <Regino Sauceda PA-C - Last Filed: 12/24/24 12:59> Assessment and Plan: 34 year old female with a complicated medical history including ESRD on dialysis, PAD, MS, chronic osteomyelitis. Recently admitted earlier this month, found to have chronic OM of the remaining left fifth metatarsal. Was discharged for wound care and abx. General surgery following for chronic foot wounds. She states that her sister has been doing wound care for her and notice over the past few days that there has been more purulent drainage and malodorous, now more painful. On exam there was a 2.5 x 2.5 cm open wound on the lateral aspect of the 5th metatarsal, exquisitely tender to palpation. there was a small area of fluctuance superior to the wound that when palpated allowed for more purulent drainage from the wound. Was unable to probe this due to pain. Additionally there is a 3.5x3.5 cm wound on the plantar aspect of the wound, minimal serosanguenious drainage, and a thick callous around the wound border. These were dressed with durafiber, guaze and kerlix. Daily wound care No antibiotic recommendations per ID Plan for left BKA Sunday, has been tentatively added onto the OR schedule, patient agreeable to this plan. we will coordinate between hospitalists, anesthesia and General surgery for when his optimal given her Sunday dialysis schedule should optimize her vaious medical comorbidities prior to surgery. <Regino Sauceda PA-C - Last Filed: 12/24/24 12:59> Time Spent With Patient Time: Total time managing care of this patient today ____ minutes. <Regino Sauceda PA-C - Last Filed: 12/24/24 12:59> Quality Stroke Does the patient have a stroke diagnosis?: No <Regino Sauceda PA-C - Last Filed: 12/24/24 12:59> VTE Prior VTE?: No <Regino Sauceda PA-C - Last Filed: 12/24/24 12:59> VTE Risk Level:: Medical - moderate - high <Regino Sauceda PA-C - Last Filed: 12/24/24 12:59> VTE Device Contraindication: Treatment Not Indicated <Regino Sauceda PA-C - Last Filed: 12/24/24 12:59> VTE Drug Contraindication: N/A - Med Ordered <Regino Sauceda PA-C - Last Filed: 12/24/24 12:59>
--- NOTE | 2024-12-24 13:24 | P.CONAN_ITS ---
HPI - Anesthesia Eval Consult details Narrative: 34 yr old female for left Leg Amputation Below Knee. Post poned 12/29 due to elevated potassium. s/p skin debridement 07/2024, GA LMA size 4 Admitted at [facility] [place] [facility] 12/10-12/17 with chronic osteomyelitis, acute on chronic respiratory failure, noncompliance, opioid dependence. Chronic hypoxemic respiratory failure on 3-4 L baseline supplemental oxygen: Sats during current admission documented on RA at 94%; seen 12/29/24, no SOB or CP 5.9 on 12/29/24, will continue to follow. ESRD on dialysis: , , Sat; last dialysis was 12/30/24 Hyperkalemia: repeat K+4.0 on 01/05/25 Pancytopenia: chronic anemia, CBC updated 12/29/24 - H/H 9.5, 28.7; platelets 118 Type 2 DM: uncontrolled Cardiomyopathy: recent echo 08/2024 EF 50-55% PMFSH Active Problems Active Problems: All Active Problems Hyperkalemia (Acute) Osteomyelitis (Acute) Acute pain of left foot (Acute) Acute osteomyelitis of left foot (Acute) Cerebral microvascular disease (Acute) Central pontine myelinolysis (Acute) Steroid-induced hyperglycemia (Acute) Multiple sclerosis exacerbation (Acute) Relapsing remitting multiple sclerosis (Acute) Hypoglycemia (Acute) Pneumonia (Acute) Multiple sclerosis (Acute) RUE weakness (Acute) Encephalitis due to infection (Acute) Bacteremia (Acute) Bacteremia (Acute) CLABSI (central line-associated bloodstream infection) (Acute) COVID-19 (Acute) Noncompliance (Acute) Back pain (Acute) Opioid dependence (Acute) Renal failure (Acute) Hyponatremia (Acute) Hyperkalemia (Acute) ESRD on dialysis (Acute) DM foot ulcer (Acute) Gastroparesis (Acute) Anemia (Acute) Plantar ulcer of left foot (Acute) PAD (peripheral artery disease) (Acute) Past Medical History Medical History (Updated 12/25/24 @ 13:44 by Ellen Frankel MD) Central pontine myelinolysis ESRD on hemodialysis End-stage renal disease (ESRD) Cardiomyopathy Cerebral microvascular disease Steroid-induced hyperglycemia Relapsing remitting multiple sclerosis Renal failure Multiple sclerosis Cerebral infarction Hyperkalemia ESRD on dialysis Hypoxia End stage renal disease on dialysis Chronic ulcer of right foot due to diabetes mellitus Chronic ulcer of left foot due to diabetes mellitus DM foot ulcer Hypotonic neurogenic bladder Diabetic polyneuropathy Hypertensive emergency Decompensated heart failure Renal failure Hypertension, uncontrolled Medical non-compliance Pericarditis Unspecified hypertension, condition or complication Metabolic acidosis Gastroparesis End stage chronic kidney disease Chronic kidney disease Anemia Plantar ulcer of left foot MDD (major depressive disorder) CKD (chronic kidney disease) Hypertension Vomiting Chronic pain Non-compliance with renal dialysis Diabetic foot ulcer associated with type 2 diabetes mellitus HFrEF (heart failure with reduced ejection fraction) delivery delivered Anemia in chronic kidney disease (CKD) CKD (chronic kidney disease) Abnormal finding on echocardiogram Elevated troponin Acute worsening of stage 3 chronic kidney disease Generalized edema Sepsis Cellulitis Pleural effusion Atypical chest pain Bone infection PAD (peripheral artery disease) Cellulitis and abscess of foot Osteomyelitis Asthma Depression with anxiety Diabetic retinopathy Blind right eye Diabetes Back pain Family History Family History Mother Coronary artery disease Myocardial infarction Stroke Diabetes mellitus Father Myocardial infarction Family history of problems with anesthesia: No Surgical History Surgical History Tubal ligation status Previous section Hx laparoscopic cholecystectomy Hx of surgical procedure (~09/11/23) 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 History of Problems with Anesthesia: No Social History Social History Household Members: Family Household Members Other:: sister, brother, [id number] Housing: Apartment Housing Other:: Apartment, 1st floor Are you a primary adult daycare coordinator to a significant other at home: No Do you presently have visiting nurse or other home services: Yes Alcohol intake: never Comment: patient refusing bed alarm Patient Tobacco Use Status: Never used Tobacco Smoked in Last 30 Days: No e-Cigarette/Vaping Use: Never Used Second Hand Smoke Exposure: No Use of substances other than those prescribed or required for medical reasons: No Currently Displaying Signs/Symptoms of Drug Intoxication Withdrawal: No Have you been hit, kicked, punched, or otherwise hurt by someone within the past year? If so, by whom?: No Do you feel safe in your current relationship?: Yes Is there a partner from a previous relationship who is making you feel unsafe now?: No Are you made to feel afraid or neglected: No Advance Directives: Yes Advance Directives on File: Yes Advance Directives Date on File: 08/28/23 Do you have a plan to hurt others: No Plan Patient : No service: No Current occupational status: unemployed and disabled Gender identity: Female Meds Allergies Allergy/AdvReac Type Severity Reaction Status Date / Time gabapentin Allergy Severe Facial Verified 12/22/24 08:54 Swelling tramadol Allergy Severe Facial Verified 12/22/24 08:54 Swelling azithromycin (From Zithromax) Allergy Intermediate Hives Verified 12/22/24 08:54 morphine (MORPHINE) Allergy Intermediate Itching Verified 12/22/24 08:54 vancomycin AdvReac Intermediate Itching Verified 12/22/24 10:52 Active Medications: Current Medications Albuterol Sulfate (Albuterol Sulfate 90 Mcg 8 Gm Inhaler) 2 puff INHALE Q6H PRN PRN Reason: Wheezing Carvedilol (Carvedilol 12.5 Mg Tablet) 12.5 mg PO BID [facility]; Protocol Last Admin: 12/24/24 10:00 Dose: Not Given Diphenhydramine HCl (Diphenhydramine Hcl 50 Mg/Ml Vial) 12.5 mg IVPUSH Q6H PRN PRN Reason: Itching Last Admin: 12/24/24 09:54 Dose: 12.5 mg Heparin Sodium (Porcine) (Heparin Sodium,Porcine 5,000 Unit/Ml Vial) 5,000 unit SUBCUT Q12H [facility] Last Admin: 12/24/24 05:01 Dose: Not Given Hydralazine HCl (Hydralazine Hcl 50 Mg Tablet) 50 mg PO TID [facility]; Protocol Last Admin: 12/24/24 10:00 Dose: Not Given Hydralazine HCl (Hydralazine Hcl 20 Mg/Ml Vial) 10 mg IVPUSH Q6H PRN; Protocol PRN Reason: SBP > 160 Last Admin: 12/22/24 20:32 Dose: 10 mg Hydromorphone HCl (Hydromorphone Hcl 2 Mg Tablet) 4 mg PO Q6H PRN PRN Reason: pain Last Admin: 12/23/24 07:05 Dose: 4 mg Hydromorphone HCl (Hydromorphone Hcl 1 Mg/Ml Syringe) 1 mg IVPUSH Q6H PRN; Protocol PRN Reason: Pain, Severe (Pain Scale 7-10) Last Admin: 12/24/24 09:54 Dose: 1 mg Metoclopramide HCl (Metoclopramide Hcl 10 Mg Tablet) 10 mg PO Q6H PRN PRN Reason: Nausea and Vomiting Ondansetron HCl (Ondansetron Hcl 4 Mg/2 Ml Vial) 4 mg IVPUSH Q6H PRN PRN Reason: Nausea and Vomiting Oxycodone HCl (Oxycodone Hcl Immed Release 5 Mg Tablet) 5 mg PO Q6H PRN PRN Reason: Pain, Moderate(Pain Scale 4-6) Home Medications ?Medication ?Instructions ?Recorded ?Confirmed ?Last Taken ?Type albuterol sulfate 90 mcg/actuation 2 puff inhalation Q 6H PRN wheezing 01/15/24 12/22/24 12/09/24 History aerosol inhaler (Ventolin HFA) lidocaine 5 % topical patch 1 patch topical DAILY PRN Pain 01/15/24 12/22/24 12/09/24 History nitroglycerin 0.4 mg sublingual 0.4 mg sublingual D IRECTED PRN 01/15/24 12/22/24 12/09/24 History tablet Angina acetaminophen 325 mg tablet 650 mg PO Q4H PRN mild jamar n 03/11/24 12/22/24 12/09/24 History calcium carbonate (Tums) 200 mg PO TIDWM PRN Acid Ref lux 07/03/24 12/22/24 12/09/24 History Exam Height,Weight and Vital Signs: Height 5 ft 4 in Weight 93 kg Last Vital Signs Temp 96.8 F 12/24/24 07:29 Pulse 80 12/24/24 07:29 Resp 18 12/24/24 07:29 BP 137/66 12/24/24 07:29 Pulse Ox 94 12/24/24 07:29 O2 Del Method Room Air 12/24/24 07:29 O2 Flow Rate 3 12/22/24 14:00 Pertinent Lab Results Pertinent Lab Results: Laboratory Tests 12/22/24 12/23/24 12/23/24 09:22 14:48 16:28 WBC 4.2 L 5.3 RBC 3.07 L 3.37 L Hgb 9.4 L 10.3 L Hct 29.4 L 30.9 L MCV 95.8 91.7 MCH 30.6 30.6 MCHC 32.0 33.3 RDW 14.0 13.9 Plt Count 93 L Not Reportable MPV 12.7 H 12.1 Immature Gran % (Auto) 0.2 1.0 H Neut % (Auto) 70.9 73.0 Lymph % (Auto) 14.[address] % (Auto) 9.0 10.5 Eos % (Auto) 4.7 H 5.2 H Baso % (Auto) 0.7 0.8 Lymph # (Auto) 0.[address] # (Auto) 0.4 0.5 Eos # (Auto) 0.2 0.3 Baso # (Auto) 0.0 0.0 Abs Immat Gran (auto) 0.01 0.05 H Absolute Neuts (auto) 3.0 3.6 Absolute Nucleated RBC 0.000 0.000 Nucleated RBC % (auto) 0.0 0.0 Smear Tech's Comments VERIFIED ESR 47 H Sodium 139 139 Potassium 6.0 H* 4.6 D Chloride 104 101 Carbon Dioxide 20 L 26 Anion Gap 21 H 17 BUN 85 H 28 H Creatinine 11.65 H* 5.55 H* Estim Creat Clear Calc 7.3 15.5 Estimated GFR 4 9 Random Glucose 87 143 H Lactic Acid 0.8 Calcium 8.2 L 8.7 D Magnesium 2.6 Total Bilirubin 0.9 Direct Bilirubin 0.4 AST 33 H ALT 21 Alkaline Phosphatase 150 H C-Reactive Protein 0.95 H Total Protein 7.7 Albumin 4.0 Hold Red Top See Note 12/24/24 09:48 WBC 3.3 L RBC 3.04 L Hgb 9.3 L Hct 28.7 L MCV 94.4 MCH 30.6 MCHC 32.4 RDW 14.0 Plt Count 75 L MPV 13.3 H Immature Gran % (Auto) 0.3 Neut % (Auto) 62.4 Lymph % (Auto) 16.[address] % (Auto) 13.8 H Eos % (Auto) 5.8 H Baso % (Auto) 1.2 Lymph # (Auto) 0.[address] # (Auto) 0.5 Eos # (Auto) 0.2 Baso # (Auto) 0.0 Abs Immat Gran (auto) 0.01 Absolute Neuts (auto) 2.0 Absolute Nucleated RBC 0.000 Nucleated RBC % (auto) 0.0 Smear Tech's Comments ESR Sodium 136 Potassium 5.0 Chloride 103 Carbon Dioxide 23 Anion Gap 15 BUN 40 H Creatinine 7.56 H* Estim Creat Clear Calc 11.3 Estimated GFR 6 Random Glucose 162 H Lactic Acid Calcium 8.4 Magnesium Total Bilirubin Direct Bilirubin AST ALT Alkaline Phosphatase C-Reactive Protein Total Protein Albumin Hold Red Top Narrative Narrative: EKG 12/21/24 Vent. Rate : 91 BPM Atrial Rate : 91 BPM P-R Int : 162 ms QRS Dur : 156 ms QT Int : 442 ms P-R-T Axes : 55 -36 60 degrees QTcB Int : 543 ms Poor data quality, interpretation may be adversely affected Normal sinus rhythm Possible Left atrial enlargement Left axis deviation Right bundle branch block Abnormal ECG When compared with ECG of 21-Dec-2024 12:02, No significant change was found ECHO 09/05/24 Conclusions: - Normal left ventricular cavity size. There is moderately increased left ventricular wall thickness. The left ventricular systolic function is low normal. The visually estimated ejection fraction is between 50-55%. - Mildly increased right ventricular cavity size. There is low normal right ventricular systolic function. - There is no evidence of a patent foramen ovale. Assessment and Plan Final Anesthetic Review Family History of Problems with Anesthesia: No History of Problems with Anesthesia: No
--- NOTE | 2024-12-24 13:24 | P.PNIM_ITS ---
Subjective Subjective Date of Service: 12/24/24 Interval History: No acute issues or concerning issues today. Patient endorses persistent nausea. Ate her entire breakfast. Requesting IV analgesics and antiemetics. Review of Systems Review of Systems: Yes all other systems are reviewed and are negative Physical Exam 2 Exam: Exam: General:Cooperative, no acute distress, alert and oriented x3 HEENT:Normocephalic, atraumatic. Cervical tenderness. No meningeal signs. Eyes:Normal appearance, EOMI. Legally blind right eye. Neck: cervical tenderness. Cardiac:Regular rate and rhythm, normal S1/S2, no murmurs. Respiratory:Clear to auscultation, no distress. GI:Soft, nontender, nondistended. Neuro:Alert, oriented, moves all extremities, no focal deficits. Skin: No rashes. Extremities: - Left foot: Chronic ulcer on plantar as pect, with malodorous, purulent drainage. Mild tenderness. - Right foot: Open draining ulcer on lat eral aspect. Mild tenderness. Foot demonstrates a chronic wound/ulcer on the heel with surrounding skin discoloration, dryness, and an open area with possible infection and local erythema. This is consistent with her known chronic diabetic/ischemic ulcer and chronic osteomyelitis. Vital Signs: Vital Signs: Last Vital Signs Temp 96.8 F 12/24/24 07:29 Pulse 80 12/24/24 07:29 Resp 18 12/24/24 07:29 BP 137/66 12/24/24 07:29 Pulse Ox 94 12/24/24 07:29 O2 Del Method Room Air 12/24/24 07:29 O2 Flow Rate 3 12/22/24 14:00 BMI result Body Mass Index 35.2 Objective Data Active Medications Albuterol Sulfate (Albuterol Sulfate 90 Mcg 8 Gm Inhaler) 2 puff INHALE Q6H PRN PRN Reason: Wheezing Carvedilol (Carvedilol 12.5 Mg Tablet) 12.5 mg PO BID [facility]; Protocol Last Admin: 12/24/24 10:00 Dose: Not Given Documented By: BOWEN Non-Admin Reason: Patient Refused Diphenhydramine HCl (Diphenhydramine Hcl 50 Mg/Ml Vial) 12.5 mg IVPUSH Q6H PRN PRN Reason: Itching Last Admin: 12/24/24 09:54 Dose: 12.5 mg Documented By: BOWEN Heparin Sodium (Porcine) (Heparin Sodium,Porcine 5,000 Unit/Ml Vial) 5,000 unit SUBCUT Q12H [facility] Last Admin: 12/24/24 05:01 Dose: Not Given Documented By: ETHEL Non-Admin Reason: Patient Refused Hydralazine HCl (Hydralazine Hcl 50 Mg Tablet) 50 mg PO TID [facility]; Protocol Last Admin: 12/24/24 10:00 Dose: Not Given Documented By: BOWEN Non-Admin Reason: Patient Refused Hydralazine HCl (Hydralazine Hcl 20 Mg/Ml Vial) 10 mg IVPUSH Q6H PRN; Protocol PRN Reason: SBP > 160 Last Admin: 12/22/24 20:32 Dose: 10 mg Documented By: KATIE Hydromorphone HCl (Hydromorphone Hcl 2 Mg Tablet) 4 mg PO Q6H PRN PRN Reason: pain Last Admin: 12/23/24 07:05 Dose: 4 mg Documented By: KATIE Hydromorphone HCl (Hydromorphone Hcl 1 Mg/Ml Syringe) 1 mg IVPUSH Q6H PRN; Protocol PRN Reason: Pain, Severe (Pain Scale 7-10) Last Admin: 12/24/24 09:54 Dose: 1 mg Documented By: BOWEN Metoclopramide HCl (Metoclopramide Hcl 10 Mg Tablet) 10 mg PO Q6H PRN PRN Reason: Nausea and Vomiting Ondansetron HCl (Ondansetron Hcl 4 Mg/2 Ml Vial) 4 mg IVPUSH Q6H PRN PRN Reason: Nausea and Vomiting Oxycodone HCl (Oxycodone Hcl Immed Release 5 Mg Tablet) 5 mg PO Q6H PRN PRN Reason: Pain, Moderate(Pain Scale 4-6) Labs 12/24/24 09:48 12/24/24 09:48 Labs: Laboratory Results - last 24 hr 12/23/24 12/23/24 12/24/24 14:48 16:28 09:48 MCV 91.7 94.4 MCH 30.6 30.6 MCHC 33.3 32.4 RDW 13.9 14.0 Plt Count Not Reportable 75 L MPV 12.1 13.3 H Immature Gran % (Auto) 1.0 H 0.3 Neut % (Auto) 73.0 62.4 Lymph % (Auto) 9.5 L 16.5 L [place] % (Auto) 10.5 13.8 H Eos % (Auto) 5.2 H 5.8 H Baso % (Auto) 0.8 1.2 Lymph # (Auto) 0.5 L 0.5 L [place] # (Auto) 0.5 0.5 Eos # (Auto) 0.3 0.2 Baso # (Auto) 0.0 0.0 Abs Immat Gran (auto) 0.05 H 0.01 Absolute Neuts (auto) 3.6 2.0 Absolute Nucleated RBC 0.000 0.000 Nucleated RBC % (auto) 0.0 0.0 Smear Tech's Comments VERIFIED Anion Gap 17 15 Estim Creat Clear Calc 15.5 11.3 Estimated GFR 9 6 Random Glucose 143 H 162 H Calcium 8.7 D 8.4 Microbiology Microbiology Results: Microbiology 12/22/24 09:22 Blood Culture - Preliminary Blood - Venous No growth after 48 hours. 12/22/24 09:22 Blood Culture - Preliminary Blood - Venous No growth after 48 hours. Assessment and Plan (1) Noncompliance: Status: Acute (2) Opioid dependence: Status: Acute (3) PAD (peripheral artery disease): Status: Acute (4) DM foot ulcer: Status: Acute (5) Hypoglycemia: Status: Acute (6) Gastroparesis: Status: Acute (7) ESRD on dialysis: Status: Acute (8) Osteomyelitis: Status: Acute (9) Plantar ulcer of left foot: Status: Acute (10) Relapsing remitting multiple sclerosis: Status: Acute (11) Central pontine myelinolysis: Status: Acute Plan 34-year-old woman with ESRD on hemodialysis (noncompliant), poorly controlled diabetes, PAD s/p bilateral transmetatarsal amputation, chronic left foot osteomyelitis, and multiple recent hospitalizations, presenting after a mechanical fall at home and missed dialysis, with [id number] malodorous drainage from a chronic left foot ulcer (see attached image), but no new systemic or focal symptoms. ESRD on Hemodialysis / Missed Dialysis / Hyperkalemia Patient is chronically noncompliant with dialysis, presenting after missing two sessions, with hyperkalemia (K 6.0), metabolic acidosis, and volume overload risk. No evidence of acute decompensation or uremic symptoms at this time. PLAN * Continue hemodialysis (coordinated with nephrology). * Monitor electrolytes, volume status, and cardiac rhythm. * Continue temporizing measures for hyperkalemia as needed * Reinforce importance of dialysis adherence; involve case management/social work. Chronic Left Foot Ulcer with Osteomyelitis Chronic, non-healing plantar/lateral foot ulcer with purulent drainage, underlying chronic osteomyelitis (5th metatarsal), previously evaluated by ID and surgery. No current systemic signs of acute infection. Recent oral/IV antibiotics discontinued per ID due to chronicity and lack of acute cellulitis. Amputation (BKA) discussed as a future option; planned with surgery to happen possibly Sunday / Sunday PLAN * Continue local wound care; offload pressure as much as possible. * Monitor for new/worsening signs of acute infection (increasing erythema, warmth, systemic symptoms). * No antibiotics at this time per ID recommendations. * Surgical follow-up for ongoing consideration of BKA. * Pain management as needed. * Wound care nursing consult if available Uncontrolled Diabetes Mellitus Chronic poor glycemic control, contributing to poor wound healing and infection risk. PLAN * Continue home diabetes regimen. * Monitor blood glucose during admission. * Endocrinology consult if needed for optimization. Hypertension / Cardiomyopathy (HFrEF) Chronic uncontrolled hypertension, HFrEF, and history of decompensated heart failure. BP on admission markedly elevated (205/103). PLAN * Continue home antihypertensives (carvedilol, hydralazine) as tolerated. * Monitor for signs of volume overload or decompensated heart failure. * Titrate antihypertensives as needed. Chronic Pain / Opioid Dependence Chronic pain related to neuropathy, chronic wounds, and prior amputations. History of opioid dependence. PLAN * Continue current pain regimen (acetaminophen, lidocaine patch, PRN opioids). * Monitor for signs of over-sedation or withdrawal. * Consider pain management consult. 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 difficile infection (on fidaxomicin), depression/anxiety, legal blindness. PLAN * Social work/case management for support and adherence. * Monitor for relapses or exacerbations Noncompliance / Frequent Hospitalizations Multiple recent admissions for similar issues, poor adherence to dialysis and medications, limited social support. PLAN * Engage case management and social work for adherence barriers. * Assess for eligibility for home health or VNA services. * Discuss goals of care and advance directives as appropriate. - QUALITY [employer] - VTE: Heparin 5000 t.i.d. - CODE STATUS: Full code - DIET: Renal Total time managing care of this patient today: 35 minutes. Quality Stroke Does the patient have a stroke diagnosis?: No VTE Prior VTE?: No VTE Risk Level:: Medical - moderate - high VTE Device Contraindication: Treatment Not Indicated VTE Drug Contraindication: N/A - Med Ordered
--- NOTE | 2024-12-24 14:02 | MHC.CM.PN ---
CM met with patient to discuss dc plan. Per MD, plan for BKA Sun v . In depth conversation re: need for STR. Patient adamantly declines and prefers to return home w/ services. She has been referred to [facility] several times in the past and has declined services after dc. She reports she will agree to services at home. Update sent to [facility]. She is also requesting rx for bedside commode, as her [employer] would like to obtain this prior to dc. Request sent to .
[2024-12-24 15:24] VITALS: BP 177/79; PULSE 84; RESP 16; TEMP 36.7; O2SAT 97
--- NOTE | 2024-12-24 18:24 | P.PNNP_ITS ---
Subjective Subjective Date of Service: 12/24/24 Interval history: Seen and examined,events noted Physical Exam 2 Vital Signs: Vital Signs: Last Vital Signs Temp 98.0 F 12/24/24 15:24 Pulse 84 12/24/24 15:24 Resp 16 12/24/24 15:24 BP 177/79 H 12/24/24 15:24 Pulse Ox 97 12/24/24 15:24 O2 Del Method Room Air 12/24/24 15:24 O2 Flow Rate 3 12/22/24 14:00 BMI result Body Mass Index 35.2 Const: General: cooperative, healthy appearing, comfortable and no acute distress Orientation/consciousness: patient oriented x3 Limitations: no limitations HEENT: Head: Yes normal to inspection and Yes atraumatic Ears: hearing grossly normal bilaterally General nose exam: Normal external nose present Face and sinus: Yes normal facial exam Eyes: General: appearance normal, both eyes and all related structures EOM: EOMs intact bilaterally Neck: Other: C-collar in place. Cervical tenderness noted. Neck: Yes normal visual inspection and Yes no meningeal signs Resp: Effort & Inspection: normal respiratory effort and no respiratory distress Auscultation: clear to auscultation bilaterally, no crackles and no wheezes Cardio: Rate: regular rate Heart sounds: S1 normal heart sound present and S2 normal heart sound present GI: Inspection: Yes normal to inspection Palpation (GI): Soft to palpation, nontender, no guarding and not rigid : General: Yes no CVA tenderness Back/Spine/Pelvis: Other: No midline cervical/thoracic/lumbar spinous tenderness/step-off or deformity Back: no CVA tenderness Skin: Rashes: no rashes Wounds: no wounds Neuro: General: patient oriented x3, tone normal, moves all extremities, no meningeal signs and no focal motor deficits Cranial nerves: Yes CN's II-XII intact bilaterally Gait exam (Neuro): Normal gait present Extrem: Other: Bilateral TMA left foot: 4x4 cm ulcer on the plantar ascpect of the foot, scant serosanguenious drainage.thick callous on the surrounding wound border. lateral foot ulcer, very tender, limiting exam. there was a small fluid collection jsut superior to the wound that expressed some fluid through the wound. malodor. General: Yes normal to inspection Objective Data Labs 12/24/24 09:48 12/24/24 09:48 Labs: Laboratory Results - last 24 hr 12/23/24 12/23/24 12/24/24 14:48 16:28 09:48 WBC 5.3 3.3 L RBC 3.37 L 3.04 L Hgb 10.3 L 9.3 L Hct 30.9 L 28.7 L MCV 91.7 94.4 MCH 30.6 30.6 MCHC 33.3 32.4 RDW 13.9 14.0 Plt Count Not Reportable 75 L MPV 12.1 13.3 H Immature Gran % (Auto) 1.0 H 0.3 Neut % (Auto) 73.0 62.4 Lymph % (Auto) 9.5 L 16.5 L [place] % (Auto) 10.5 13.8 H Eos % (Auto) 5.2 H 5.8 H Baso % (Auto) 0.8 1.2 Lymph # (Auto) 0.5 L 0.5 L [place] # (Auto) 0.5 0.5 Eos # (Auto) 0.3 0.2 Baso # (Auto) 0.0 0.0 Abs Immat Gran (auto) 0.05 H 0.01 Absolute Neuts (auto) 3.6 2.0 Absolute Nucleated RBC 0.000 0.000 Nucleated RBC % (auto) 0.0 0.0 Smear Tech's Comments VERIFIED Sodium 139 136 Potassium 4.6 D 5.0 Chloride 101 103 Carbon Dioxide 26 23 Anion Gap 17 15 BUN 28 H 40 H Creatinine 5.55 H* 7.56 H* Estim Creat Clear Calc 15.5 11.3 Estimated GFR 9 6 Random Glucose 143 H 162 H Calcium 8.7 D 8.4 Microbiology Microbiology Results: Microbiology 12/22/24 09:22 Blood - Venous Blood Culture - Preliminary No growth after 48 hours. 12/22/24 09:22 Blood - Venous Blood Culture - Preliminary No growth after 48 hours. Procedures Date of Service Date of Service: 12/24/24 Assessment & Plan Assessment and plan (1) Noncompliance: Status: Acute (2) Opioid dependence: Status: Acute (3) PAD (peripheral artery disease): Status: Acute (4) DM foot ulcer: Status: Acute (5) Hypoglycemia: Status: Acute (6) Gastroparesis: Status: Acute (7) ESRD on dialysis: Status: Acute (8) Renal failure: Status: Acute (9) Hyperkalemia: Status: Acute (10) Anemia: Status: Acute (11) Osteomyelitis: Status: Acute (12) Acute osteomyelitis of left foot: Status: Acute (13) Acute pain of left foot: Status: Acute (14) Plantar ulcer of left foot: Status: Acute (15) Cerebral microvascular disease: Status: Acute (16) Relapsing remitting multiple sclerosis: Status: Acute (17) Central pontine myelinolysis: Status: Acute Plan ESRD: usu TTS, missed Tx Sat; HD yesterday and get back on TTS HyperK: controlled after HD 12/23 HTN: cont usu BP meds and incr as needed Nephrogenic Anmeia Will follow w team Time Spent With Patient Time: Total time managing care of this patient today ____ minutes. Progress Note: Quality Stroke Does the patient have a stroke diagnosis?: No
[2024-12-24 20:00] VITALS: BP 139/80; PULSE 88; RESP 18; TEMP 37; O2SAT 99
[2024-12-25 03:24] VITALS: BP 123/60; PULSE 82; RESP 18; TEMP 36.4; O2SAT 95
[2024-12-25 07:33] VITALS: BP 132/64; PULSE 78; RESP 17; TEMP 36.3; O2SAT 93
--- NOTE | 2024-12-25 08:07 | PC.NURSE ---
refused assessment, wanted to sleep
[2024-12-25 12:01] VITALS: BP 121/58; PULSE 82; RESP 18; TEMP 36.3; O2SAT 95
--- NOTE | 2024-12-25 13:03 | PC.NURSE ---
refused dressing change at this time from MD, will attempt later.
--- NOTE | 2024-12-25 13:40 | P.PNIM_ITS ---
Subjective Subjective Date of Service: 12/25/24 Interval History: No new complaints or issues today. Patient feels well. Completing hemodialysis Physical Exam 2 Exam: Exam: General:Cooperative, no acute distress, alert and oriented x3 HEENT:Normocephalic, atraumatic. Cervical tenderness. No meningeal signs. Eyes:Normal appearance, EOMI. Legally blind right eye. Neck: cervical tenderness. Cardiac:Regular rate and rhythm, normal S1/S2, no murmurs. Respiratory:Clear to auscultation, no distress. GI:Soft, nontender, nondistended. Neuro:Alert, oriented, moves all extremities, no focal deficits. Skin: No rashes. Extremities: - Left foot: Chronic ulcer on plantar as pect, with malodorous, purulent drainage. Mild tenderness. - Right foot: Open draining ulcer on lat eral aspect. Mild tenderness. Foot demonstrates a chronic wound/ulcer on the heel with surrounding skin discoloration, dryness, and an open area with possible infection and local erythema. This is consistent with her known chronic diabetic/ischemic ulcer and chronic osteomyelitis. Vital Signs: Vital Signs: Last Vital Signs Temp 97.4 F 12/25/24 12:01 Pulse 82 12/25/24 12:01 Resp 18 12/25/24 12:01 BP 121/58 L 12/25/24 12:01 Pulse Ox 95 12/25/24 12:01 O2 Del Method Room Air 12/25/24 12:01 O2 Flow Rate 3 12/22/24 14:00 BMI result Body Mass Index 35.2 Objective Data Active Medications Albuterol Sulfate (Albuterol Sulfate 90 Mcg 8 Gm Inhaler) 2 puff INHALE Q6H PRN PRN Reason: Wheezing Carvedilol (Carvedilol 12.5 Mg Tablet) 12.5 mg PO BID [facility]; Protocol Last Admin: 12/25/24 10:28 Dose: Not Given Documented By: LAURI Non-Admin Reason: Patient Refused Diphenhydramine HCl (Diphenhydramine Hcl 50 Mg/Ml Vial) 12.5 mg IVPUSH Q6H PRN PRN Reason: Itching Last Admin: 12/25/24 10:27 Dose: 12.5 mg Documented By: LAURI Heparin Sodium (Porcine) (Heparin Sodium,Porcine 5,000 Unit/Ml Vial) 5,000 unit SUBCUT Q12H [facility] Last Admin: 12/25/24 12:49 Dose: Not Given Documented By: LAURI Non-Admin Reason: Patient Refused Hydralazine HCl (Hydralazine Hcl 50 Mg Tablet) 50 mg PO TID [facility]; Protocol Last Admin: 12/25/24 12:49 Dose: Not Given Documented By: LAURI Non-Admin Reason: Patient Refused Hydralazine HCl (Hydralazine Hcl 20 Mg/Ml Vial) 10 mg IVPUSH Q6H PRN; Protocol PRN Reason: SBP > 160 Last Admin: 12/22/24 20:32 Dose: 10 mg Documented By: KATIE Hydromorphone HCl (Hydromorphone Hcl 2 Mg Tablet) 4 mg PO Q6H PRN PRN Reason: pain Last Admin: 12/23/24 07:05 Dose: 4 mg Documented By: KATIE Hydromorphone HCl (Hydromorphone Hcl 1 Mg/Ml Syringe) 1 mg IVPUSH Q6H PRN; Protocol PRN Reason: Pain, Severe (Pain Scale 7-10) Last Admin: 12/25/24 10:27 Dose: 1 mg Documented By: LAURI Metoclopramide HCl (Metoclopramide Hcl 10 Mg Tablet) 10 mg PO Q6H PRN PRN Reason: Nausea and Vomiting Ondansetron HCl (Ondansetron Hcl 4 Mg/2 Ml Vial) 4 mg IVPUSH Q6H PRN PRN Reason: Nausea and Vomiting Oxycodone HCl (Oxycodone Hcl Immed Release 5 Mg Tablet) 5 mg PO Q6H PRN PRN Reason: Pain, Moderate(Pain Scale 4-6) Labs 12/24/24 09:48 12/24/24 09:48 Microbiology Microbiology Results: Microbiology 12/22/24 09:22 Blood Culture - Preliminary Blood - Venous No growth after 48 hours. 12/22/24 09:22 Blood Culture - Preliminary Blood - Venous No growth after 48 hours. Assessment and Plan (1) Chronic osteomyelitis: Status: Acute (2) Type II diabetes mellitus: Status: Acute (3) ESRD on hemodialysis: Status: Acute Plan 34-year-old woman with ESRD on hemodialysis (noncompliant), poorly controlled diabetes, PAD s/p bilateral transmetatarsal amputation, chronic left foot osteomyelitis, and multiple recent hospitalizations, presenting after a mechanical fall at home and missed dialysis, with [id number] malodorous drainage from a chronic left foot ulcer (see attached image), but no new systemic or focal symptoms. ESRD on Hemodialysis / Missed Dialysis / Hyperkalemia Patient is chronically noncompliant with dialysis, presenting after missing two sessions, with hyperkalemia (K 6.0), metabolic acidosis, and volume overload risk. No evidence of acute decompensation or uremic symptoms at this time. PLAN * Continue hemodialysis (coordinated with nephrology). * Monitor electrolytes, volume status, and cardiac rhythm. * Continue temporizing measures for hyperkalemia as needed * Reinforce importance of dialysis adherence; involve case management/social work. Chronic Left Foot Ulcer with Osteomyelitis Chronic, non-healing plantar/lateral foot ulcer with purulent drainage, underlying chronic osteomyelitis (5th metatarsal), previously evaluated by ID and surgery. No current systemic signs of acute infection. Recent oral/IV antibiotics discontinued per ID due to chronicity and lack of acute cellulitis. Amputation (BKA) discussed as a future option; planned with surgery to happen possibly Sunday / Sunday PLAN * Continue local wound care; offload pressure as much as possible. * Monitor for new/worsening signs of acute infection (increasing erythema, warmth, systemic symptoms). * No antibiotics at this time per ID recommendations. * Surgical follow-up for ongoing consideration of BKA. * Pain management as needed. * Wound care nursing consult if available Uncontrolled Diabetes Mellitus Chronic poor glycemic control, contributing to poor wound healing and infection risk. PLAN * Continue home diabetes regimen. * Monitor blood glucose during admission. * Endocrinology consult if needed for optimization. Hypertension / Cardiomyopathy (HFrEF) Chronic uncontrolled hypertension, HFrEF, and history of decompensated heart failure. BP on admission markedly elevated (205/103). PLAN * Continue home antihypertensives (carvedilol, hydralazine) as tolerated. * Monitor for signs of volume overload or decompensated heart failure. * Titrate antihypertensives as needed. Chronic Pain / Opioid Dependence Chronic pain related to neuropathy, chronic wounds, and prior amputations. History of opioid dependence. PLAN * Continue current pain regimen (acetaminophen, lidocaine patch, PRN opioids). * Monitor for signs of over-sedation or withdrawal. * Consider pain management consult. 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 difficile infection (on fidaxomicin), depression/anxiety, legal blindness. PLAN * Social work/case management for support and adherence. * Monitor for relapses or exacerbations Noncompliance / Frequent Hospitalizations Multiple recent admissions for similar issues, poor adherence to dialysis and medications, limited social support. PLAN * Engage case management and social work for adherence barriers. * Assess for eligibility for home health or VNA services. * Discuss goals of care and advance directives as appropriate. - [facility] - VTE: Heparin 5000 t.i.d. - CODE STATUS: Full code - DIET: Renal Total time managing care of this patient today: 35 minutes. Quality Stroke Does the patient have a stroke diagnosis?: No VTE Prior VTE?: No VTE Risk Level:: Medical - moderate - high VTE Device Contraindication: Treatment Not Indicated VTE Drug Contraindication: N/A - Med Ordered
--- NOTE | 2024-12-25 14:06 | PC.NURSE ---
attempted wound care at this time, pt refused!
--- NOTE | 2024-12-25 14:58 | P.PNNP_ITS ---
Subjective Subjective Date of Service: 12/25/24 Interval history: Seen and examined,e vents noted Physical Exam 2 Vital Signs: Vital Signs: Last Vital Signs Temp 97.4 F 12/25/24 12:01 Pulse 82 12/25/24 12:01 Resp 18 12/25/24 12:01 BP 121/58 L 12/25/24 12:01 Pulse Ox 95 12/25/24 12:01 O2 Del Method Room Air 12/25/24 12:01 O2 Flow Rate 3 12/22/24 14:00 BMI result Body Mass Index 35.2 Const: General: cooperative, healthy appearing, comfortable and no acute distress Orientation/consciousness: patient oriented x3 Limitations: no limitations HEENT: Head: Yes normal to inspection and Yes atraumatic Ears: hearing grossly normal bilaterally General nose exam: Normal external nose present Face and sinus: Yes normal facial exam Eyes: General: appearance normal, both eyes and all related structures EOM: EOMs intact bilaterally Neck: Other: C-collar in place. Cervical tenderness noted. Neck: Yes normal visual inspection and Yes no meningeal signs Resp: Effort & Inspection: normal respiratory effort and no respiratory distress Auscultation: clear to auscultation bilaterally, no crackles and no wheezes Cardio: Rate: regular rate Heart sounds: S1 normal heart sound present and S2 normal heart sound present GI: Inspection: Yes normal to inspection Palpation (GI): Soft to palpation, nontender, no guarding and not rigid : General: Yes no CVA tenderness Back/Spine/Pelvis: Other: No midline cervical/thoracic/lumbar spinous tenderness/step-off or deformity Back: no CVA tenderness Skin: Rashes: no rashes Wounds: no wounds Neuro: General: patient oriented x3, tone normal, moves all extremities, no meningeal signs and no focal motor deficits Cranial nerves: Yes CN's II-XII intact bilaterally Gait exam (Neuro): Normal gait present Extrem: Other: Bilateral TMA left foot: 4x4 cm ulcer on the plantar ascpect of the foot, scant serosanguenious drainage.thick callous on the surrounding wound border. lateral foot ulcer, very tender, limiting exam. there was a small fluid collection jsut superior to the wound that expressed some fluid through the wound. malodor. General: Yes normal to inspection Objective Data Labs 12/24/24 09:48 12/24/24 09:48 Microbiology Microbiology Results: Microbiology 12/22/24 09:22 Blood - Venous Blood Culture - Preliminary No growth after 48 hours. 12/22/24 09:22 Blood - Venous Blood Culture - Preliminary No growth after 48 hours. Procedures Date of Service Date of Service: 12/25/24 Assessment & Plan Assessment and plan (1) Noncompliance: Status: Resolved (2) Opioid dependence: Status: Resolved (3) PAD (peripheral artery disease): Status: Inactive (4) DM foot ulcer: Status: Resolved (5) Hypoglycemia: Status: Resolved (6) Gastroparesis: Status: Inactive (7) ESRD on dialysis: Status: Inactive (8) Renal failure: Status: Inactive (9) Hyperkalemia: Status: Acute (10) Anemia: Status: Inactive (11) Osteomyelitis: Status: Inactive (12) Acute osteomyelitis of left foot: Status: Resolved (13) Acute pain of left foot: Status: Resolved (14) Plantar ulcer of left foot: Status: Inactive (15) Cerebral microvascular disease: Status: Inactive (16) Relapsing remitting multiple sclerosis: Status: Inactive (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 Progress Note: Quality Stroke Does the patient have a stroke diagnosis?: No
[2024-12-25 16:29] VITALS: BP 173/83; PULSE 82; RESP 20; TEMP 36.3; O2SAT 94
--- NOTE | 2024-12-25 17:59 | PC.NURSE ---
Pt allowed dressing change around 4:30pm, tolerated well, wound bed granulation, dark wound edges, no odor, no c/o pain with dressing change, plan AMP LLE on Sunday.
[2024-12-25 19:30] VITALS: BP 147/67; PULSE 84; RESP 16; TEMP 36.4; O2SAT 97
[2024-12-25 22:58] LABS: Glucose, Whole Blood 122 mg/dL (60-115)
[2024-12-25 22:59] VITALS: BP 144/66; PULSE 86
[2024-12-26 03:26] VITALS: BP 141/62; PULSE 78; RESP 16; TEMP 37; O2SAT 96
[2024-12-26 07:38] VITALS: BP 182/88; PULSE 85; RESP 18; TEMP 36; O2SAT 95
[2024-12-26 08:03] VITALS: BP 182/88; PULSE 85
--- NOTE | 2024-12-26 12:55 | MHC.CM.PN ---
Patient not medically cleared for dc. Awaiting surgery. Likely home w/ [facility]NA when medically cleared, continues to refuse SNF. CM will continue to follow.
--- NOTE | 2024-12-26 13:50 | P.PNIM_ITS ---
Subjective Subjective Date of Service: 12/26/24 Interval History: No issues or complaints today. Patient has been refusing medications, attempting to encouraged to take her medications, so that she is medically stabilized for surgery Review of Systems Review of Systems: Yes all other systems are reviewed and are negative Physical Exam 2 Exam: Exam: General:Cooperative, no acute distress, alert and oriented x3 HEENT:Normocephalic, atraumatic. Cervical tenderness. No meningeal signs. Eyes:Normal appearance, EOMI. Legally blind right eye. Neck: cervical tenderness. Cardiac:Regular rate and rhythm, normal S1/S2, no murmurs. Respiratory:Clear to auscultation, no distress. GI:Soft, nontender, nondistended. Neuro:Alert, oriented, moves all extremities, no focal deficits. Skin: No rashes. Extremities: - Left foot: Chronic ulcer on plantar as pect, with malodorous, purulent drainage. Mild tenderness. - Right foot: Open draining ulcer on lat eral aspect. Mild tenderness. Foot demonstrates a chronic wound/ulcer on the heel with surrounding skin discoloration, dryness, and an open area with possible infection and local erythema. This is consistent with her known chronic diabetic/ischemic ulcer and chronic osteomyelitis. Vital Signs: Vital Signs: Last Vital Signs Temp 96.8 F 12/26/24 07:38 Pulse 85 12/26/24 08:03 Resp 18 12/26/24 07:38 BP 182/88 H 12/26/24 08:03 Pulse Ox 95 12/26/24 07:38 O2 Del Method Room Air 12/26/24 07:38 O2 Flow Rate 3 12/22/24 14:00 BMI result Body Mass Index 35.2 Objective Data Active Medications Albuterol Sulfate (Albuterol Sulfate 90 Mcg 8 Gm Inhaler) 2 puff INHALE Q6H PRN PRN Reason: Wheezing Carvedilol (Carvedilol 12.5 Mg Tablet) 12.5 mg PO BID [facility]; Protocol Last Admin: 12/26/24 08:03 Dose: 12.5 mg Documented By: MAKAYLA Dextrose (Dextrose 50 % 25 Gm/50 Ml Syringe) 25 gm IVPUSH Q15M PRN; Protocol PRN Reason: per Hypoglycemia Standing Ord. Diphenhydramine HCl (Diphenhydramine Hcl 50 Mg/Ml Vial) 12.5 mg IVPUSH Q6H PRN PRN Reason: Itching Last Admin: 12/26/24 08:04 Dose: 12.5 mg Documented By: MAKAYLA Comments: Itchy Glucose (Glucose Gel 15 Gm Gel..Gram.) 15 gm PO Q15M PRN; Protocol PRN Reason: per Hypoglycemia Standing Ord. Heparin Sodium (Porcine) (Heparin Sodium,Porcine 5,000 Unit/Ml Vial) 5,000 unit SUBCUT Q12H [facility] Last Admin: 12/26/24 05:38 Dose: Not Given Documented By: ISHAAN Non-Admin Reason: Patient Refused Hydralazine HCl (Hydralazine Hcl 50 Mg Tablet) 50 mg PO TID [facility]; Protocol Last Admin: 12/26/24 08:03 Dose: 50 mg Documented By: MAKAYLA Hydralazine HCl (Hydralazine Hcl 20 Mg/Ml Vial) 10 mg IVPUSH Q6H PRN; Protocol PRN Reason: SBP > 160 Last Admin: 12/22/24 20:32 Dose: 10 mg Documented By: KATIE Hydromorphone HCl (Hydromorphone Hcl 2 Mg Tablet) 4 mg PO Q6H PRN PRN Reason: pain Last Admin: 12/23/24 07:05 Dose: 4 mg Documented By: KATIE Hydromorphone HCl (Hydromorphone Hcl 1 Mg/Ml Syringe) 1 mg IVPUSH Q6H PRN; Protocol PRN Reason: Pain, Severe (Pain Scale 7-10) Last Admin: 12/26/24 08:07 Dose: 1 mg Documented By: MAKAYLA Insulin Human Lispro (Insulin Lispro 100 Unit/Ml 3 Ml Vial) 0 unit SUBCUT QIDACHS [facility]; Protocol Last Admin: 12/26/24 11:47 Dose: Not Given Documented By: MAKAYLA Non-Admin Reason: Patient Refused Metoclopramide HCl (Metoclopramide Hcl 10 Mg Tablet) 10 mg PO Q6H PRN PRN Reason: Nausea and Vomiting Ondansetron HCl (Ondansetron Hcl 4 Mg/2 Ml Vial) 4 mg IVPUSH Q6H PRN PRN Reason: Nausea and Vomiting Oxycodone HCl (Oxycodone Hcl Immed Release 5 Mg Tablet) 5 mg PO Q6H PRN PRN Reason: Pain, Moderate(Pain Scale 4-6) Labs 12/24/24 09:48 12/24/24 09:48 Labs: Laboratory Results - last 24 hr 12/25/24 22:54 POC Glucose 122 H Assessment and Plan (1) Cardiomyopathy: Status: Acute (2) End-stage renal disease (ESRD): Status: Acute (3) ESRD on hemodialysis: Status: Acute (4) Chronic osteomyelitis: Status: Acute (5) Multiple sclerosis: Status: Acute (6) Central pontine myelinolysis: Status: Acute Plan 34-year-old woman with ESRD on hemodialysis (noncompliant), poorly controlled diabetes, PAD s/p bilateral transmetatarsal amputation, chronic left foot osteomyelitis, and multiple recent hospitalizations, presenting after a mechanical fall at home and missed dialysis, with [id number] malodorous drainage from a chronic left foot ulcer (see attached image), but no new systemic or focal symptoms. ESRD on Hemodialysis / Missed Dialysis / Hyperkalemia Patient is chronically noncompliant with dialysis, presenting after missing two sessions, with hyperkalemia (K 6.0), metabolic acidosis, and volume overload risk. No evidence of acute decompensation or uremic symptoms at this time. PLAN * Continue hemodialysis (coordinated with nephrology). * Monitor electrolytes, volume status, and cardiac rhythm. * Continue temporizing measures for hyperkalemia as needed * Reinforce importance of dialysis adherence; involve case management/social work. Chronic Left Foot Ulcer with Osteomyelitis Chronic, non-healing plantar/lateral foot ulcer with purulent drainage, underlying chronic osteomyelitis (5th metatarsal), previously evaluated by ID and surgery. No current systemic signs of acute infection. Recent oral/IV antibiotics discontinued per ID due to chronicity and lack of acute cellulitis. Amputation (BKA) discussed as a future option; planned with surgery to happen possibly Sunday / Sunday PLAN * Continue local wound care; offload pressure as much as possible. * Monitor for new/worsening signs of acute infection (increasing erythema, warmth, systemic symptoms). * No antibiotics at this time per ID recommendations. * Surgical follow-up for ongoing consideration of BKA. * Pain management as needed. * Wound care nursing consult if available Uncontrolled Diabetes Mellitus Chronic poor glycemic control, contributing to poor wound healing and infection risk. PLAN * Continue home diabetes regimen. * Monitor blood glucose during admission. * Endocrinology consult if needed for optimization. Hypertension / Cardiomyopathy (HFrEF) Chronic uncontrolled hypertension, HFrEF, and history of decompensated heart failure. BP on admission markedly elevated (205/103). PLAN * Continue home antihypertensives (carvedilol, hydralazine) as tolerated. * Monitor for signs of volume overload or decompensated heart failure. * Titrate antihypertensives as needed. Chronic Pain / Opioid Dependence Chronic pain related to neuropathy, chronic wounds, and prior amputations. History of opioid dependence. PLAN * Continue current pain regimen (acetaminophen, lidocaine patch, PRN opioids). * Monitor for signs of over-sedation or withdrawal. * Consider pain management consult. 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 difficile infection (on fidaxomicin), depression/anxiety, legal blindness. PLAN * Social work/case management for support and adherence. * Monitor for relapses or exacerbations Noncompliance / Frequent Hospitalizations Multiple recent admissions for similar issues, poor adherence to dialysis and medications, limited social support. PLAN * Engage case management and social work for adherence barriers. * Assess for eligibility for home health or VNA services. * Discuss goals of care and advance directives as appropriate. [facility] - VTE: Heparin 5000 t.i.d. - CODE STATUS: Full code - DIET: Renal Total time managing care of this patient today: 35 minutes. Quality Stroke Does the patient have a stroke diagnosis?: No VTE Prior VTE?: No VTE Risk Level:: Medical - moderate - high VTE Device Contraindication: Treatment Not Indicated VTE Drug Contraindication: N/A - Med Ordered
[2024-12-26 15:20] VITALS: BP 139/70; PULSE 78; RESP 18; TEMP 36.4; O2SAT 97
[2024-12-26 19:52] VITALS: BP 151/70; PULSE 78; RESP 16; TEMP 36.2; O2SAT 97
--- NOTE | 2024-12-26 20:25 | PC.NURSE ---
2020-DECLINED SCHEDULED MEDICATIONS FOR HER BLOOD PRESSURE DESPITE ENCOURAGEMENT AND GIVEN READING OF 151/70.
[2024-12-27] VITALS (7 sets, daily range): BP systolic 134–163; BP diastolic 63–84; PULSE 79–88; RESP 15–18; TEMP 36.2–36.3; O2SAT 95–98
--- NOTE | 2024-12-27 06:11 | PC.NURSE ---
[id number]- patient transported via bed to dialysis as per phone call requesting patient to be brought up for her dialysis session.
--- NOTE | 2024-12-27 13:55 | P.PNIM_ITS ---
Subjective Subjective Date of Service: 12/27/24 Interval History: Enter complaints or issues today. Took all medications Blood pressure within normal range Blood sugar well controlled Anticipating surgery on Sunday/ Sunday Review of Systems Review of Systems: Yes all other systems are reviewed and are negative Physical Exam 2 Exam: Exam: General:Cooperative, no acute distress, alert and oriented x3 HEENT:Normocephalic, atraumatic. Cervical tenderness. No meningeal signs. Eyes:Normal appearance, EOMI. Legally blind right eye. Neck: cervical tenderness. Cardiac:Regular rate and rhythm, normal S1/S2, no murmurs. Respiratory:Clear to auscultation, no distress. GI:Soft, nontender, nondistended. Neuro:Alert, oriented, moves all extremities, no focal deficits. Skin: No rashes. Extremities: - Left foot: Chronic ulcer on plantar as pect, with malodorous, purulent drainage. Mild tenderness. - Right foot: Open draining ulcer on lat eral aspect. Mild tenderness. Foot demonstrates a chronic wound/ulcer on the heel with surrounding skin discoloration, dryness, and an open area with possible infection and local erythema. This is consistent with her known chronic diabetic/ischemic ulcer and chronic osteomyelitis. Vital Signs: Vital Signs: Last Vital Signs Temp 97.4 F 12/27/24 11:16 Pulse 82 12/27/24 11:16 Resp 18 12/27/24 11:16 BP 134/63 12/27/24 11:16 Pulse Ox 98 12/27/24 11:16 O2 Del Method Room Air 12/27/24 11:16 O2 Flow Rate 3 12/22/24 14:00 BMI result Body Mass Index 35.2 Objective Data Active Medications Albuterol Sulfate (Albuterol Sulfate 90 Mcg 8 Gm Inhaler) 2 puff INHALE Q6H PRN PRN Reason: Wheezing Carvedilol (Carvedilol 12.5 Mg Tablet) 12.5 mg PO BID [facility]; Protocol Last Admin: 12/27/24 10:00 Dose: Not Given Documented By: RUBA Non-Admin Reason: Off unit: Dialysis Dextrose (Dextrose 50 % 25 Gm/50 Ml Syringe) 25 gm IVPUSH Q15M PRN; Protocol PRN Reason: per Hypoglycemia Standing Ord. Diphenhydramine HCl (Diphenhydramine Hcl 50 Mg/Ml Vial) 12.5 mg IVPUSH Q6H PRN PRN Reason: Itching Last Admin: 12/27/24 09:09 Dose: 12.5 mg Documented By: RUBA Glucose (Glucose Gel 15 Gm Gel..Gram.) 15 gm PO Q15M PRN; Protocol PRN Reason: per Hypoglycemia Standing Ord. Heparin Sodium (Porcine) (Heparin Sodium,Porcine 5,000 Unit/Ml Vial) 5,000 unit SUBCUT Q12H [facility] Last Admin: 12/27/24 04:42 Dose: Not Given Documented By: ELISE Non-Admin Reason: Patient Refused Hydralazine HCl (Hydralazine Hcl 50 Mg Tablet) 50 mg PO TID [facility]; Protocol Last Admin: 12/27/24 10:00 Dose: Not Given Documented By: RUBA Non-Admin Reason: Off unit: Dialysis Hydralazine HCl (Hydralazine Hcl 20 Mg/Ml Vial) 10 mg IVPUSH Q6H PRN; Protocol PRN Reason: SBP > 160 Last Admin: 12/22/24 20:32 Dose: 10 mg Documented By: KATIE Hydromorphone HCl (Hydromorphone Hcl 2 Mg Tablet) 4 mg PO Q6H PRN PRN Reason: pain Last Admin: 12/23/24 07:05 Dose: 4 mg Documented By: KATIE Hydromorphone HCl (Hydromorphone Hcl 1 Mg/Ml Syringe) 1 mg IVPUSH Q6H PRN; Protocol PRN Reason: Pain, Severe (Pain Scale 7-10) Last Admin: 12/27/24 09:10 Dose: 1 mg Documented By: RUBA Insulin Human Lispro (Insulin Lispro 100 Unit/Ml 3 Ml Vial) 0 unit SUBCUT QIDACHS [facility]; Protocol Last Admin: 12/27/24 11:37 Dose: Not Given Documented By: RUBA Non-Admin Reason: t. refused POC checked. Metoclopramide HCl (Metoclopramide Hcl 10 Mg Tablet) 10 mg PO Q6H PRN PRN Reason: Nausea and Vomiting Ondansetron HCl (Ondansetron Hcl 4 Mg/2 Ml Vial) 4 mg IVPUSH Q6H PRN PRN Reason: Nausea and Vomiting Oxycodone HCl (Oxycodone Hcl Immed Release 5 Mg Tablet) 5 mg PO Q6H PRN PRN Reason: Pain, Moderate(Pain Scale 4-6) Labs 12/24/24 09:48 12/24/24 09:48 Microbiology Microbiology Results: Microbiology 12/22/24 09:22 Blood Culture - Final Blood - Venous No growth after 5 days. 12/22/24 09:22 Blood Culture - Final Blood - Venous No growth after 5 days. Assessment and Plan (1) Type II diabetes mellitus: Status: Acute (2) Cardiomyopathy: Status: Acute (3) End-stage renal disease (ESRD): Status: Acute (4) ESRD on hemodialysis: Status: Acute (5) Central pontine myelinolysis: Status: Acute (6) Multiple sclerosis: Status: Acute (7) Chronic osteomyelitis: Status: Acute Plan 34-year-old woman with ESRD on hemodialysis (noncompliant), poorly controlled diabetes, PAD s/p bilateral transmetatarsal amputation, chronic left foot osteomyelitis, and multiple recent hospitalizations, presenting after a mechanical fall at home and missed dialysis, with [id number] malodorous drainage from a chronic left foot ulcer (see attached image), but no new systemic or focal symptoms. ESRD on Hemodialysis / Missed Dialysis / Hyperkalemia Patient is chronically noncompliant with dialysis, presenting after missing two sessions, with hyperkalemia (K 6.0), metabolic acidosis, and volume overload risk. No evidence of acute decompensation or uremic symptoms at this time. PLAN * Continue hemodialysis (coordinated with nephrology). * Monitor electrolytes, volume status, and cardiac rhythm. * Continue temporizing measures for hyperkalemia as needed * Reinforce importance of dialysis adherence; involve case management/social work. Chronic Left Foot Ulcer with Osteomyelitis Chronic, non-healing plantar/lateral foot ulcer with purulent drainage, underlying chronic osteomyelitis (5th metatarsal), previously evaluated by ID and surgery. No current systemic signs of acute infection. Recent oral/IV antibiotics discontinued per ID due to chronicity and lack of acute cellulitis. Amputation (BKA) discussed as a future option; planned with surgery to happen possibly Sunday / Sunday PLAN * Continue local wound care; offload pressure as much as possible. * Monitor for new/worsening signs of acute infection (increasing erythema, warmth, systemic symptoms). * No antibiotics at this time per ID recommendations. * Surgical follow-up for ongoing consideration of BKA. * Pain management as needed. * Wound care nursing consult if available Uncontrolled Diabetes Mellitus Chronic poor glycemic control, contributing to poor wound healing and infection risk. PLAN * Continue home diabetes regimen. * Monitor blood glucose during admission. * Endocrinology consult if needed for optimization. Hypertension / Cardiomyopathy (HFrEF) Chronic uncontrolled hypertension, HFrEF, and history of decompensated heart failure. BP on admission markedly elevated (205/103). PLAN * Continue home antihypertensives (carvedilol, hydralazine) as tolerated. * Monitor for signs of volume overload or decompensated heart failure. * Titrate antihypertensives as needed. Chronic Pain / Opioid Dependence Chronic pain related to neuropathy, chronic wounds, and prior amputations. History of opioid dependence. PLAN * Continue current pain regimen (acetaminophen, lidocaine patch, PRN opioids). * Monitor for signs of over-sedation or withdrawal. * Consider pain management consult. 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 difficile infection (on fidaxomicin), depression/anxiety, legal blindness. PLAN * Social work/case management for support and adherence. * Monitor for relapses or exacerbations Noncompliance / Frequent Hospitalizations Multiple recent admissions for similar issues, poor adherence to dialysis and medications, limited social support. PLAN * Engage case management and social work for adherence barriers. * Assess for eligibility for home health or VNA services. * Discuss goals of care and advance directives as appropriate. QUAL[employer] - VTE: Heparin 5000 t.i.d. - CODE STATUS: Full code - DIET: Renal Total time managing care of this patient today: 35 minutes. Quality Stroke Does the patient have a stroke diagnosis?: No VTE Prior VTE?: No VTE Risk Level:: Medical - moderate - high VTE Device Contraindication: Treatment Not Indicated VTE Drug Contraindication: N/A - Med Ordered
[2024-12-28] VITALS (8 sets, daily range): BP systolic 168–190; BP diastolic 76–102; PULSE 83–85; RESP 16–18; TEMP 36.3–36.6; O2SAT 95–99
--- NOTE | 2024-12-28 09:54 | P.PNGS_ITS ---
Subjective Subjective Date of Service: 12/28/24 Interval history: No events reported No changes in status Physical Exam 2 Vital Signs: Vital Signs: Last Vital Signs Temp 97.6 F 12/28/24 07:56 Pulse 83 12/28/24 07:56 Resp 18 12/28/24 09:42 BP 168/76 H 12/28/24 07:56 Pulse Ox 99 12/28/24 07:56 O2 Del Method Room Air 12/28/24 07:56 O2 Flow Rate 3 12/22/24 14:00 BMI result Body Mass Index 35.2 Const: General: comfortable and no acute distress Resp: Effort & Inspection: normal respiratory effort Cardio: Rate: regular rate GI: Palpation (GI): Soft to palpation Extrem: Other: Plantar ulcer, with a some discharge, also with a draining ulcer on the lateral aspect of the foot Objective Data Active Medications Albuterol Sulfate (Albuterol Sulfate 90 Mcg 8 Gm Inhaler) 2 puff INHALE Q6H PRN PRN Reason: Wheezing Carvedilol (Carvedilol 12.5 Mg Tablet) 12.5 mg PO BID [facility]; Protocol Last Admin: 12/28/24 08:22 Dose: Not Given Documented By: RUBA Non-Admin Reason: Patient Refused Dextrose (Dextrose 50 % 25 Gm/50 Ml Syringe) 25 gm IVPUSH Q15M PRN; Protocol PRN Reason: per Hypoglycemia Standing Ord. Diphenhydramine HCl (Diphenhydramine Hcl 50 Mg/Ml Vial) 12.5 mg IVPUSH Q6H PRN PRN Reason: Itching Last Admin: 12/28/24 09:42 Dose: 12.5 mg Documented By: RUBA Glucose (Glucose Gel 15 Gm Gel..Gram.) 15 gm PO Q15M PRN; Protocol PRN Reason: per Hypoglycemia Standing Ord. Heparin Sodium (Porcine) (Heparin Sodium,Porcine 5,000 Unit/Ml Vial) 5,000 unit SUBCUT Q12H [facility] Last Admin: 12/28/24 05:52 Dose: Not Given Documented By: ELISE Non-Admin Reason: Patient Refused Hydralazine HCl (Hydralazine Hcl 50 Mg Tablet) 50 mg PO TID [facility]; Protocol Last Admin: 12/28/24 08:23 Dose: Not Given Documented By: RUBA Non-Admin Reason: Patient Refused Hydralazine HCl (Hydralazine Hcl 20 Mg/Ml Vial) 10 mg IVPUSH Q6H PRN; Protocol PRN Reason: SBP > 160 Last Admin: 12/22/24 20:32 Dose: 10 mg Documented By: KATIE Hydromorphone HCl (Hydromorphone Hcl 1 Mg/Ml Syringe) 1 mg IVPUSH Q6H PRN; Protocol PRN Reason: Pain, Severe (Pain Scale 7-10) Last Admin: 12/28/24 09:42 Dose: 1 mg Documented By: RUBA Insulin Human Lispro (Insulin Lispro 100 Unit/Ml 3 Ml Vial) 0 unit SUBCUT [facility]; Protocol Last Admin: 12/28/24 08:22 Dose: Not Given Documented By: RUBA Non-Admin Reason: pt. refused POCs Metoclopramide HCl (Metoclopramide Hcl 10 Mg Tablet) 10 mg PO Q6H PRN PRN Reason: Nausea and Vomiting Ondansetron HCl (Ondansetron Hcl 4 Mg/2 Ml Vial) 4 mg IVPUSH Q6H PRN PRN Reason: Nausea and Vomiting Labs 12/24/24 09:48 12/24/24 09:48 Microbiology Microbiology Results: Microbiology 12/22/24 09:22 Blood Culture - Final Blood - Venous No growth after 5 days. 12/22/24 09:22 Blood Culture - Final Blood - Venous No growth after 5 days. Procedures Date of Service Date of Service: 12/28/24 Progress Note: A&P Assessment and plan (1) Chronic osteomyelitis: Status: Acute Assessment and Plan: She has ulcers on the lateral aspect of the left foot as well as the plantar area with known callus Imaging suggest osteomyelitis of the proximal 5th metatarsal She already has had has metatarsus amputation with persistent ulceration as above She wants to proceed with a BKA She understands the technique of left BKA She understands the risks including but not limited to bleeding, infections, poor healing, inherent risks of anesthesia especially in view of her multiple medical problems Tentatively scheduled for BKA tomorrow Ideally, best to do surgery the day after dialysis but we will discuss this with the anesthesiologist Time Spent With Patient Time: Total time managing care of this patient today ____ minutes. Quality Stroke Does the patient have a stroke diagnosis?: No VTE Prior VTE?: No VTE Risk Level:: Medical - moderate - high VTE Device Contraindication: Treatment Not Indicated VTE Drug Contraindication: N/A - Med Ordered
[2024-12-28 11:43] LABS: Glucose, Whole Blood 114 mg/dL (60-115)
--- NOTE | 2024-12-28 19:56 | PC.NURSE ---
pts bp is 186/102 manual shes refusing to take all her meds and poc sugar shes willing to do at 11 pm will check at 11 p with her Dilaudid for pain
[2024-12-28 23:02] LABS: Glucose, Whole Blood 111 mg/dL (60-115)
[2024-12-29 03:55] VITALS: BP 162/100; PULSE 77; RESP 18; TEMP 36.4; O2SAT 97
[2024-12-29 07:42] LABS: Glucose, Whole Blood 83 mg/dL (60-115)
[2024-12-29 07:58] VITALS: BP 166/95; PULSE 78; RESP 16; TEMP 36.5; O2SAT 94
--- NOTE | 2024-12-29 08:09 | MHC.SHP ---
Pre-Procedural Eval Section A - 24 Hr Update-Section A only Date of Service: 12/29/24 The patient is an INPATIENT: Yes Changes since office visit: No Cold of Flu in the past 2 weeks, No New Medical Problems, No Changes in Medication and No Patient answered all questions The patient has been examined within 24 hours of the surgical procedure. The History & Physical has been completed within 30 days and I have reviewed it.: Yes Section B - Complete if H&P > 30 days Chief Complaint: Osteomyelitis, unspecified Allergies: Allergies Allergy/AdvReac Type Severity Reaction Status Date / Time gabapentin Allergy Severe Facial Verified 12/22/24 08:54 Swelling tramadol Allergy Severe Facial Verified 12/22/24 08:54 Swelling azithromycin (From Zithromax) Allergy Intermediate Hives Verified 12/22/24 08:54 morphine (MORPHINE) Allergy Intermediate Itching Verified 12/22/24 08:54 vancomycin AdvReac Intermediate Itching Verified 12/22/24 10:52 Plan I have reviewed the history and physical and performed a pertinent physical examination on my patient. No changes have occurred unless specified. Time Spent With Patient Time: Total time managing care of this patient today ____ minutes.
--- NOTE | 2024-12-29 09:03 | HO.PM.IMPN ---
Subjective Subjective Date of Service: 12/29/24 Interval History: Pt was to have Operative mx- potponed by colleen 2/2 hyperkalemia Pt is ESRD and can be rx with HD if needed. UNclear when the next OR date will be - will touch base tomorrow to see Since she is ESRD pt, will need Rx with HD only Daughter and grandchild in room at the time of my examination. Physical Exam Exam: Exam: General:Cooperative, no acute distress, alert and oriented x3 Eyes:Legally blind right eye. Cardiac:Regular rate and rhythm, normal S1/S2, no murmurs. Respiratory:Clear to auscultation, no distress. GI:Soft, nontender, nondistended. Extremities: - Left foot: Chronic ulcer on plantar aspect, with malodorous, purulent drainage. Mild tenderness. - Right foot: Open draining ulcer on lateral aspect. Mild tenderness. Foot demonstrates a chronic wound/ulcer on the heel with surrounding skin discoloration, dryness, and an open area with possible infection and local erythema. This is consistent with her known chronic diabetic/ischemic ulcer and chronic osteomyelitis. Vital Signs: Vital Signs: Last Vital Signs Temp 97.7 F 12/29/24 07:58 Pulse 78 12/29/24 07:58 Resp 16 12/29/24 07:58 BP 166/95 H 12/29/24 07:58 Pulse Ox 94 12/29/24 07:58 O2 Del Method Room Air 12/29/24 07:58 O2 Flow Rate 3 12/22/24 14:00 BMI result Body Mass Index 35.2 Objective Data Active Medications Albuterol Sulfate (Albuterol Sulfate 90 Mcg 8 Gm Inhaler) 2 puff INHALE Q6H PRN PRN Reason: Wheezing Carvedilol (Carvedilol 12.5 Mg Tablet) 12.5 mg PO BID [facility]; Protocol Last Admin: 12/29/24 08:25 Dose: 12.5 mg Documented By: NITIN Dextrose (Dextrose 50 % 25 Gm/50 Ml Syringe) 25 gm IVPUSH Q15M PRN; Protocol PRN Reason: per Hypoglycemia Standing Ord. Diphenhydramine HCl (Diphenhydramine Hcl 50 Mg/Ml Vial) 12.5 mg IVPUSH Q6H PRN PRN Reason: Itching Last Admin: 12/29/24 06:11 Dose: 12.5 mg Documented By: RUSSELL Glucose (Glucose Gel 15 Gm Gel..Gram.) 15 gm PO Q15M PRN; Protocol PRN Reason: per Hypoglycemia Standing Ord. Heparin Sodium (Porcine) (Heparin Sodium,Porcine 5,000 Unit/Ml Vial) 5,000 unit SUBCUT Q12H [facility] Last Admin: 12/29/24 05:42 Dose: Not Given Documented By: RUSSELL Non-Admin Reason: Patient Refused Hydralazine HCl (Hydralazine Hcl 50 Mg Tablet) 50 mg PO TID [facility]; Protocol Last Admin: 12/29/24 08:25 Dose: 50 mg Documented By: NITIN Hydralazine HCl (Hydralazine Hcl 20 Mg/Ml Vial) 10 mg IVPUSH Q6H PRN; Protocol PRN Reason: SBP > 160 Last Admin: 12/22/24 20:32 Dose: 10 mg Documented By: KATIE Hydromorphone HCl (Hydromorphone Hcl 1 Mg/Ml Syringe) 1 mg IVPUSH Q6H PRN; Protocol PRN Reason: Pain, Severe (Pain Scale 7-10) Last Admin: 12/29/24 06:12 Dose: 1 mg Documented By: RUSSELL Insulin Human Lispro (Insulin Lispro 100 Unit/Ml 3 Ml Vial) 0 unit SUBCUT QIDACHS [facility]; Protocol Last Admin: 12/29/24 07:49 Dose: Not Given Documented By: NITIN Non-Admin Reason: No Insulin Coverage Metoclopramide HCl (Metoclopramide Hcl 10 Mg Tablet) 10 mg PO Q6H PRN PRN Reason: Nausea and Vomiting Ondansetron HCl (Ondansetron Hcl 4 Mg/2 Ml Vial) 4 mg IVPUSH Q6H PRN PRN Reason: Nausea and Vomiting Labs 12/29/24 10:50 12/29/24 10:50 Labs: Laboratory Results - last 24 hr 12/28/24 12/28/24 12/29/24 11:38 22:56 07:38 POC Glucose 114 111 83 Assessment and Plan (1) Type II diabetes mellitus: Status: Acute (2) Cardiomyopathy: Status: Acute (3) End-stage renal disease (ESRD): Status: Acute (4) ESRD on hemodialysis: Status: Acute (5) Central pontine myelinolysis: Status: Acute (6) Multiple sclerosis: Status: Acute (7) Chronic osteomyelitis: Status: Acute Plan Pt is a 34-year-old woman with ESRD on hemodialysis (noncompliant), poorly controlled diabetes, PAD s/p bilateral transmetatarsal amputation, chronic left foot osteomyelitis, and multiple recent hospitalizations, presenting after a mechanical fall at home and missed dialysis and is to undergo amputation of L foot for surgical mx of Chronic OM. Postponed today as pt had hyperkalemia per anesthesia. Chronic (doesnt appear to have an acute flare) nonhealing L foot OM in a poorly controlled, noncompliant DM2 to undergo L BKA amputation for definitive mx- postponed 2/2 hyperK in an ESRD pt Chronic, non-healing plantar/lateral foot ulcer with purulent drainage, underlying chronic osteomyelitis (5th metatarsal), previously evaluated by ID and surgery. Amputation (BKA) discussed as a future option; planned with surgery to happen possibly Sunday/Sunday s/p ESRD Cont WOund care, offload wt , no abx per ID input, Ortho and surgery consulted Will check daily labs and medically mx as tolerated in an ESRD pt ESRD on Hemodialysis / Missed Dialysis / Hyperkalemia - HD per abhi Uncontrolled Diabetes Mellitus - will check A1c, Fructosamine- Check A1c, FRuctosamine, ISS while in pt to maintain euglycemia Hypertensionsive urgency likely 2/2 missed HD POA - normalised s/p HD per abhi and meds - will uptitrate and adjust to maintain normotension Cardiomyopathy (HFrEF) 41% per TTE 05/30/24 - GDMT as tolerated , will likely need OP PCP mx for optimal mx as pt likely wouldn't tolerate if we were to initiate all the meds, Avoid SPironolactne given ESRD and persistent HYperK Chronic Pain / h/o Opioid Dependence Chronic pain related to neuropathy, chronic wounds, and prior amputations. History of opioid dependence. Utox needed to be done POA , will check now and consider addcition med if needed, will avoid narcotics as much as possible given h/o opiod dependence. Other Chronic Comorbidities- History of relapsing-remitting MS vs. central pontine myelinolysis, chronic anemia, C. difficile infection (on fidaxomicin), depression/anxiety, legal blindness. Social work/case management for support and adherence. Monitor for relapses or exacerbations Noncompliance / Frequent Hospitalizations Multiple recent admissions for similar issues, poor adherence to dialysis and medications, limited social support. PLAN Engage case management and social work for adherence barriers. Assess for eligibility for home health or VNA services. Discuss goals of care and advance directives as appropriate. QUAL[facility] [employer] - VTE: Heparin 5000 t.i.d. - CODE STATUS: Full code - DIET: Renal - will initiate low K diet This note is constructed using voice recognition software. While every effort has been made to ensure accuracy, supervisor asphalt paving errors may have been included. Total time managing care of this patient today: 35 minutes. Quality Stroke Does the patient have a stroke diagnosis?: No VTE Prior VTE?: No VTE Risk Level:: Medical - moderate - high VTE Device Contraindication: Treatment Not Indicated VTE Drug Contraindication: N/A - Med Ordered
[2024-12-29 11:04] LABS: Hematocrit 28.2 % (37.0-47.0); Hemoglobin 9.5 g/dl (12.0-16.0); Mean Corpuscular HGB Conc 33.7 g/dl (31.0-35.0); Mean Corpuscular Hemoglobin 31.0 pg (27.0-33.0); Mean Corpuscular Volume 92.2 fL (80.0-98.0); NRBC Abs Auto 0.000 X10*3/uL (0.0-0.012); NRBC Pct Auto 0.0 /100WBC (0.0-0.2); Platelet Count 118 X10*3/uL (160-400); Red Blood Count 3.06 X10*6/uL (4.20-5.50); White Blood Count 4.9 X10*3/uL (4.8-10.8)
[2024-12-29 11:27] LABS: Anion Gap 17 (12-20); Blood Urea Nitrogen 57 mg/dL (9-16); Calcium 8.9 mg/dL (8.4-10.2); Carbon Dioxide 22 mmol/L (22-29); Chloride 101 mmol/L (96-108); Creatinine Clr Calc Pharmacy 9.6; Estimated Glomerular Filt Rate 5; Potassium 5.9 mmol/L (3.3-5.1); Sodium 134 mmol/L (135-145)
[2024-12-29 11:30] LABS: Glucose, Whole Blood 99 mg/dL (60-115)
--- NOTE | 2024-12-29 11:33 | P.PNGS_ITS ---
Subjective Subjective Date of Service: 12/31/24 Interval history: No new complaints No events reported Physical Exam 2 Vital Signs: Vital Signs: Last Vital Signs Temp 97.7 F 12/29/24 07:58 Pulse 78 12/29/24 07:58 Resp 16 12/29/24 07:58 BP 166/95 H 12/29/24 07:58 Pulse Ox 94 12/29/24 07:58 O2 Del Method Room Air 12/29/24 07:58 O2 Flow Rate 3 12/22/24 14:00 BMI result Body Mass Index 35.2 Const: General: comfortable and no acute distress Resp: Effort & Inspection: normal respiratory effort GI: Palpation (GI): Soft to palpation Extrem: Other: Dressings in place Objective Data Active Medications Albuterol Sulfate (Albuterol Sulfate 90 Mcg 8 Gm Inhaler) 2 puff INHALE Q6H PRN PRN Reason: Wheezing Carvedilol (Carvedilol 12.5 Mg Tablet) 12.5 mg PO BID [facility]; Protocol Last Admin: 12/29/24 08:25 Dose: 12.5 mg Documented By: NITIN Dextrose (Dextrose 50 % 25 Gm/50 Ml Syringe) 25 gm IVPUSH Q15M PRN; Protocol PRN Reason: per Hypoglycemia Standing Ord. Diphenhydramine HCl (Diphenhydramine Hcl 50 Mg/Ml Vial) 12.5 mg IVPUSH Q6H PRN PRN Reason: Itching Last Admin: 12/29/24 06:11 Dose: 12.5 mg Documented By: RUSSELL Glucose (Glucose Gel 15 Gm Gel..Gram.) 15 gm PO Q15M PRN; Protocol PRN Reason: per Hypoglycemia Standing Ord. Heparin Sodium (Porcine) (Heparin Sodium,Porcine 5,000 Unit/Ml Vial) 5,000 unit SUBCUT Q12H [facility] Last Admin: 12/29/24 05:42 Dose: Not Given Documented By: RUSSELL Non-Admin Reason: Patient Refused Hydralazine HCl (Hydralazine Hcl 50 Mg Tablet) 50 mg PO TID [facility]; Protocol Last Admin: 12/29/24 08:25 Dose: 50 mg Documented By: NITIN Hydralazine HCl (Hydralazine Hcl 20 Mg/Ml Vial) 10 mg IVPUSH Q6H PRN; Protocol PRN Reason: SBP > 160 Last Admin: 12/22/24 20:32 Dose: 10 mg Documented By: KATIE Hydromorphone HCl (Hydromorphone Hcl 1 Mg/Ml Syringe) 1 mg IVPUSH Q6H PRN; Protocol PRN Reason: Pain, Severe (Pain Scale 7-10) Last Admin: 12/29/24 06:12 Dose: 1 mg Documented By: RUSSELL Insulin Human Lispro (Insulin Lispro 100 Unit/Ml 3 Ml Vial) 0 unit SUBCUT [facility]; Protocol Last Admin: 12/29/24 07:49 Dose: Not Given Documented By: NITIN Non-Admin Reason: No Insulin Coverage Metoclopramide HCl (Metoclopramide Hcl 10 Mg Tablet) 10 mg PO Q6H PRN PRN Reason: Nausea and Vomiting Ondansetron HCl (Ondansetron Hcl 4 Mg/2 Ml Vial) 4 mg IVPUSH Q6H PRN PRN Reason: Nausea and Vomiting Last Admin: 12/29/24 11:04 Dose: 4 mg Documented By: KARLI Labs 12/29/24 10:50 12/31/24 06:16 Labs: Laboratory Results - last 24 hr 12/28/24 12/28/24 12/29/24 11:38 22:56 07:38 MCV MCH MCHC RDW Plt Count MPV Absolute Nucleated RBC Nucleated RBC % (auto) Anion Gap Estim Creat Clear Calc Estimated GFR POC Glucose 114 111 83 Random Glucose Calcium 12/29/24 12/29/24 12/29/24 10:50 10:50 10:50 MCV 92.2 MCH 31.0 MCHC 33.7 RDW 14.0 Plt Count 118 L D MPV 12.5 H Absolute Nucleated RBC 0.000 Nucleated RBC % (auto) 0.0 Anion Gap 17 Cancelled Estim Creat Clear Calc 9.6 Cancelled Estimated GFR 5 POC Glucose Random Glucose Calcium 12/29/24 12/29/24 12/29/24 10:50 10:50 10:50 MCV MCH MCHC RDW Plt Count MPV Absolute Nucleated RBC Nucleated RBC % (auto) Anion Gap Estim Creat Clear Calc Estimated GFR Cancelled POC Glucose Random Glucose 95 Cancelled Calcium 8.9 Cancelled 12/29/24 11:26 MCV MCH MCHC RDW Plt Count MPV Absolute Nucleated RBC Nucleated RBC % (auto) Anion Gap Estim Creat Clear Calc Estimated GFR POC Glucose 99 Random Glucose Calcium Procedures Date of Service Date of Service: 12/31/24 Progress Note: A&P Assessment and plan (1) Chronic osteomyelitis: Status: Acute Assessment and Plan: Scheduled for BKA today on the left However, potassium was 5.9, creatinine 8.9 Discussed with the anesthesiologist - BKA we will be canceled because of this elevated potassium Probably most ideal to do the BKA the day after dialysis We will reschedule Time Spent With Patient Time: Total time managing care of this patient today ____ minutes. Quality Stroke Does the patient have a stroke diagnosis?: No VTE Prior VTE?: No VTE Risk Level:: Medical - moderate - high VTE Device Contraindication: Treatment Not Indicated VTE Drug Contraindication: N/A - Med Ordered
--- NOTE | 2024-12-29 12:23 | PC.NURSE ---
informed by [facility] that surgery is cancelled for today due to K 5.9, pt currently frustrated, refusing dsg change at this time
--- NOTE | 2024-12-29 14:27 | MHC.CM.PN ---
AMP UNABLE TO BE DONE TODAY DUE TO PTS K CM FOLLOWING FOR CHANGING DC NEEDS
[2024-12-29 15:13] VITALS: BP 160/94; PULSE 82; RESP 18; TEMP 36.3; O2SAT 96
[2024-12-29 16:09] LABS: Glucose, Whole Blood 85 mg/dL (60-115)
[2024-12-29 18:48] VITALS: BP 156/72; PULSE 82; RESP 18; TEMP 36.3; O2SAT 95
[2024-12-30 07:22] VITALS: BP 150/72; PULSE 80; RESP 17; TEMP 36.8; O2SAT 94
[2024-12-30 10:37] VITALS: BP 158/72; PULSE 83; RESP 16; TEMP 36.6
[2024-12-30 11:57] LABS: Cannabinoid Screen Urine Not Detected (Not Detect)
--- NOTE | 2024-12-30 13:03 | P.PNGS_ITS ---
Subjective Subjective Date of Service: 12/30/24 <Regino Sauceda PA-C - Last Filed: 12/30/24 13:07> 12/31/24 <Tu Rajput MD - Last Filed: 12/31/24 08:42> Interval history: no new complaints. Had dialysis today <Regino Sauceda PA-C - Last Filed: 12/30/24 13:07> Physical Exam 2 Vital Signs: Vital Signs: Last Vital Signs Temp 98 F 12/30/24 10:37 Pulse 83 12/30/24 10:37 Resp 16 12/30/24 10:37 BP 158/72 H 12/30/24 10:37 Pulse Ox 94 12/30/24 07:22 O2 Del Method Room Air 12/30/24 07:22 O2 Flow Rate 3 12/22/24 14:00 BMI result Body Mass Index 35.2 <Regino Sauceda PA-C - Last Filed: 12/30/24 13:07> Const: General: comfortable and no acute distress <Regino Sauceda PA-C - Last Filed: 12/30/24 13:07> Resp: Effort & Inspection: normal respiratory effort <Regino Sauceda PA-C - Last Filed: 12/30/24 13:07> GI: Palpation (GI): Soft to palpation <LEXA Gomez Last Filed: 12/30/24 13:07> Extrem: Other: Dressings in place <Regino Sauceda PA-C - Last Filed: 12/30/24 13:07> Objective Data Active Medications Albuterol Sulfate (Albuterol Sulfate 90 Mcg 8 Gm Inhaler) 2 puff INHALE Q6H PRN PRN Reason: Wheezing Carvedilol (Carvedilol 12.5 Mg Tablet) 12.5 mg PO BID [facility]; Protocol Last Admin: 12/30/24 10:37 Dose: 12.5 mg Documented By: KERRIE Dextrose (Dextrose 50 % 25 Gm/50 Ml Syringe) 25 gm IVPUSH Q15M PRN; Protocol PRN Reason: per Hypoglycemia Standing Ord. Diphenhydramine HCl (Diphenhydramine Hcl 50 Mg/Ml Vial) 12.5 mg IVPUSH Q6H PRN PRN Reason: Itching Last Admin: 12/30/24 07:33 Dose: 12.5 mg Documented By: LAURI Glucose (Glucose Gel 15 Gm Gel..Gram.) 15 gm PO Q15M PRN; Protocol PRN Reason: per Hypoglycemia Standing Ord. Heparin Sodium (Porcine) (Heparin Sodium,Porcine 5,000 Unit/Ml Vial) 5,000 unit SUBCUT Q12H [facility] Last Admin: 12/30/24 04:00 Dose: Not Given Documented By: ISHAAN Non-Admin Reason: Patient Refused Hydralazine HCl (Hydralazine Hcl 50 Mg Tablet) 50 mg PO TID [facility]; Protocol Last Admin: 12/30/24 10:37 Dose: 50 mg Documented By: KERRIE Hydralazine HCl (Hydralazine Hcl 20 Mg/Ml Vial) 10 mg IVPUSH Q6H PRN; Protocol PRN Reason: SBP > 160 Last Admin: 12/22/24 20:32 Dose: 10 mg Documented By: KATIE Hydromorphone HCl (Hydromorphone Hcl 1 Mg/Ml Syringe) 1 mg IVPUSH Q6H PRN; Protocol PRN Reason: Pain, Severe (Pain Scale 7-10) Last Admin: 12/30/24 07:33 Dose: 1 mg Documented By: LAURI Insulin Human Lispro (Insulin Lispro 100 Unit/Ml 3 Ml Vial) 0 unit SUBCUT QIDACHS [facility]; Protocol Last Admin: 12/30/24 11:38 Dose: Not Given Documented By: KERRIE Non-Admin Reason: Patient Refused Metoclopramide HCl (Metoclopramide Hcl 10 Mg Tablet) 10 mg PO Q6H PRN PRN Reason: Nausea and Vomiting Ondansetron HCl (Ondansetron Hcl 4 Mg/2 Ml Vial) 4 mg IVPUSH Q6H PRN PRN Reason: Nausea and Vomiting Last Admin: 12/29/24 18:48 Dose: 4 mg Documented By: ISHAAN <Regino Sauceda PA-C - Last Filed: 12/30/24 13:07> Labs CBC & Chem 7: 12/29/24 10:50 12/31/24 06:16 <Regino Sauceda PA-C - Last Filed: 12/30/24 13:07> Labs: Laboratory Results - last 24 hr 12/29/24 12/29/24 12/30/24 10:50 16:04 08:28 Hold Purple Top SEE NOTE POC Glucose 85 Estimat Average Glucose 117 Hemoglobin A1c % 5.7 Urine Opiates Screen Ur Buprenorphine Scrn Ur Oxycodone Screen Urine Methadone Screen Urine Fentanyl Screen Ur Barbiturates Screen Ur Phencyclidine Scrn Ur Amphetamines Screen U Benzodiazepines Scrn Urine Cocaine Screen U Marijuana (THC) Screen 12/30/24 11:22 Hold Purple Top POC Glucose Estimat Average Glucose Hemoglobin A1c % Urine Opiates Screen POSITIVE H Ur Buprenorphine Scrn Not Detected Ur Oxycodone Screen Not Detected Urine Methadone Screen Not Detected Urine Fentanyl Screen Not Detected Ur Barbiturates Screen Not Detected Ur Phencyclidine Scrn Not Detected Ur Amphetamines Screen Not Detected U Benzodiazepines Scrn Not Detected Urine Cocaine Screen Not Detected U Marijuana (THC) Screen Not Detected <Regino Sauceda PA-C - Last Filed: 12/30/24 13:07> Procedures Date of Service Date of Service: 12/30/24 <Regino Sauceda PA-C - Last Filed: 12/30/24 13:07> 12/31/24 <Tu Rajput MD - Last Filed: 12/31/24 08:42> Progress Note: A&P Assessment and plan (1) Acute osteomyelitis of left foot: Status: Resolved <Regino Sauceda PA-C - Last Filed: 12/30/24 13:07> Assessment and Plan: Agree with above Seen and examined the patient independently <Tu Rajput MD - Last Filed: 12/31/24 08:42> (2) DM foot ulcer: Status: Resolved <Regino Sauceda PA-C - Last Filed: 12/30/24 13:07> Assessment and Plan: 34 year old female with a complicated medical history including ESRD on dialysis, PAD, MS, chronic osteomyelitis remaining left 5th metatarsal. Plan for BKA tomorrow. Patient agreeable Patient had dialysis today. We will recheck a.m. labs to be cleared for anesthesia tomorrow. <Regino Sauceda PA-C - Last Filed: 12/30/24 13:07> Time Spent With Patient Time: Total time managing care of this patient today ____ minutes. <Regino Sauceda PA-C - Last Filed: 12/30/24 13:07> Quality Stroke Does the patient have a stroke diagnosis?: No <Regino Sauceda PA-C - Last Filed: 12/30/24 13:07> VTE Prior VTE?: No <Regino Sauceda PA-C - Last Filed: 12/30/24 13:07> VTE Risk Level:: Medical - moderate - high <Regino Sauceda PA-C - Last Filed: 12/30/24 13:07> VTE Device Contraindication: Treatment Not Indicated <Regino Sauceda PA-C - Last Filed: 12/30/24 13:07> VTE Drug Contraindication: N/A - Med Ordered <Regino Sauceda PA-C - Last Filed: 12/30/24 13:07>
--- NOTE | 2024-12-30 14:56 | P.PNIM_ITS ---
Subjective Subjective Date of Service: 12/30/24 Interval History: Patient to undergo amputation tomorrow Patient underwent hemodialysis today Review of Systems Review of Systems: Yes all other systems are reviewed and are negative Physical Exam 2 Exam: Exam: General:Cooperative, no acute distress, alert and oriented x3 Eyes:Legally blind right eye. Cardiac:Regular rate and rhythm, normal S1/S2, no murmurs. Respiratory:Clear to auscultation, no distress. GI:Soft, nontender, nondistended. Extremities: - Left foot: Chronic ulcer on plantar as pect, with malodorous, purulent drainage. Mild tenderness. - Right foot: Open draining ulcer on lat eral aspect. Mild tenderness. Foot demonstrates a chronic wound/ulcer on the heel with surrounding skin discoloration, dryness, and an open area with possible infection and local erythema. This is consistent with her known chronic diabetic/ischemic ulcer and chronic osteomyelitis. Vital Signs: Vital Signs: Last Vital Signs Temp 98 F 12/30/24 10:37 Pulse 83 12/30/24 10:37 Resp 16 12/30/24 10:37 BP 158/72 H 12/30/24 10:37 Pulse Ox 94 12/30/24 07:22 O2 Del Method Room Air 12/30/24 07:22 O2 Flow Rate 3 12/22/24 14:00 BMI result Body Mass Index 35.2 Objective Data Active Medications Albuterol Sulfate (Albuterol Sulfate 90 Mcg 8 Gm Inhaler) 2 puff INHALE Q6H PRN PRN Reason: Wheezing Carvedilol (Carvedilol 12.5 Mg Tablet) 12.5 mg PO BID [facility]; Protocol Last Admin: 12/30/24 10:37 Dose: 12.5 mg Documented By: KERRIE Dextrose (Dextrose 50 % 25 Gm/50 Ml Syringe) 25 gm IVPUSH Q15M PRN; Protocol PRN Reason: per Hypoglycemia Standing Ord. Diphenhydramine HCl (Diphenhydramine Hcl 50 Mg/Ml Vial) 12.5 mg IVPUSH Q6H PRN PRN Reason: Itching Last Admin: 12/30/24 13:40 Dose: 12.5 mg Documented By: KERRIE Glucose (Glucose Gel 15 Gm Gel..Gram.) 15 gm PO Q15M PRN; Protocol PRN Reason: per Hypoglycemia Standing Ord. Heparin Sodium (Porcine) (Heparin Sodium,Porcine 5,000 Unit/Ml Vial) 5,000 unit SUBCUT Q12H [facility] Last Admin: 12/30/24 04:00 Dose: Not Given Documented By: ISHAAN Non-Admin Reason: Patient Refused Hydralazine HCl (Hydralazine Hcl 50 Mg Tablet) 50 mg PO TID [facility]; Protocol Last Admin: 12/30/24 10:37 Dose: 50 mg Documented By: KERRIE Hydralazine HCl (Hydralazine Hcl 20 Mg/Ml Vial) 10 mg IVPUSH Q6H PRN; Protocol PRN Reason: SBP > 160 Last Admin: 12/22/24 20:32 Dose: 10 mg Documented By: KATIE Hydromorphone HCl (Hydromorphone Hcl 1 Mg/Ml Syringe) 1 mg IVPUSH Q6H PRN; Protocol PRN Reason: Pain, Severe (Pain Scale 7-10) Last Admin: 12/30/24 13:40 Dose: 1 mg Documented By: KERRIE Insulin Human Lispro (Insulin Lispro 100 Unit/Ml 3 Ml Vial) 0 unit SUBCUT QIDACHS [facility]; Protocol Last Admin: 12/30/24 11:38 Dose: Not Given Documented By: KERRIE Non-Admin Reason: Patient Refused Metoclopramide HCl (Metoclopramide Hcl 10 Mg Tablet) 10 mg PO Q6H PRN PRN Reason: Nausea and Vomiting Ondansetron HCl (Ondansetron Hcl 4 Mg/2 Ml Vial) 4 mg IVPUSH Q6H PRN PRN Reason: Nausea and Vomiting Last Admin: 12/29/24 18:48 Dose: 4 mg Documented By: ISHAAN Labs 12/29/24 10:50 12/29/24 10:50 Labs: Laboratory Results - last 24 hr 12/29/24 12/29/24 12/30/24 10:50 16:04 08:28 Hold Purple Top SEE NOTE POC Glucose 85 Estimat Average Glucose 117 Hemoglobin A1c % 5.7 Urine Opiates Screen Ur Buprenorphine Scrn Ur Oxycodone Screen Urine Methadone Screen Urine Fentanyl Screen Ur Barbiturates Screen Ur Phencyclidine Scrn Ur Amphetamines Screen U Benzodiazepines Scrn Urine Cocaine Screen U Marijuana (THC) Screen 12/30/24 11:22 Hold Purple Top POC Glucose Estimat Average Glucose Hemoglobin A1c % Urine Opiates Screen POSITIVE H Ur Buprenorphine Scrn Not Detected Ur Oxycodone Screen Not Detected Urine Methadone Screen Not Detected Urine Fentanyl Screen Not Detected Ur Barbiturates Screen Not Detected Ur Phencyclidine Scrn Not Detected Ur Amphetamines Screen Not Detected U Benzodiazepines Scrn Not Detected Urine Cocaine Screen Not Detected U Marijuana (THC) Screen Not Detected Assessment and Plan (1) Chronic osteomyelitis: Status: Acute Plan Pt is a 34-year-old woman with ESRD on hemodialysis (noncompliant), poorly controlled diabetes, PAD s/p bilateral transmetatarsal amputation, chronic left foot osteomyelitis, and multiple recent hospitalizations, presenting after a mechanical fall at home and missed dialysis and is to undergo amputation of L foot for surgical mx of Chronic OM. Postponed today as pt had hyperkalemia per anesthesia. Chronic (doesn't appear to have an acute flare) nonhealing L foot OM in a poorly controlled, noncompliant DM2 to undergo L BKA amputation for definitive mx- postponed 2/2 hyperK in an ESRD pt Chronic, non-healing plantar/lateral foot ulcer with purulent drainage, underlying chronic osteomyelitis (5th metatarsal), previously evaluated by ID and surgery. Amputation (BKA) discussed as a future option; planned with surgery to happen possibly tomorrow Sunday s/p ESRD, NPO from midnight Cont WOund care, offload wt , no abx per ID input, Ortho and surgery consulted Will check daily labs and medically mx as tolerated in an ESRD pt ESRD on Hemodialysis / Missed Dialysis / Hyperkalemia - HD per abhi Uncontrolled Diabetes Mellitus - will check A1c, Fructosamine- Check A1c, FRuctosamine, ISS while in pt to maintain euglycemia Hypertensionsive urgency likely 2/2 missed HD POA - normalised s/p HD per abhi and meds - will uptitrate and adjust to maintain normotension Cardiomyopathy (HFrEF) 41% per TTE 05/30/24 - GDMT as tolerated , will likely need OP PCP mx for optimal mx as pt likely wouldn't tolerate if we were to initiate all the meds, Avoid SPironolactne given ESRD and persistent HYperK Chronic Pain / h/o Opioid Dependence Chronic pain related to neuropathy, chronic wounds, and prior amputations. History of opioid dependence. Utox needed to be done POA , will check now and consider addcition med if needed, will avoid narcotics as much as possible given h/o opiod dependence. Other Chronic Comorbidities- History of relapsing-remitting MS vs. central pontine myelinolysis, chronic anemia, C. difficile infection (on fidaxomicin), depression/anxiety, legal blindness. * Social work/case management for support and adherence. * Monitor for relapses or exacerbations Noncompliance / Frequent Hospitalizations Multiple recent admissions for similar issues, poor adherence to dialysis and medications, limited social support. PLAN * Engage case management and social work for adherence barriers. * Assess for eligibility for home health or VNA services. * Discuss goals of care and advance directives as appropriate. - VTE: Heparin 5000 t.i.d. - CODE STATUS: Full code - DIET: Renal - will initiate low K diet This note is constructed using voice recognition software. While every effort has been made to ensure accuracy, printing film stripper errors may have been included. Patient needs hospitalization as she will likely undergo surgical management/orthopedic management tomorrow Continues to need close monitoring of electrolytes and hemodialysis Total time managing care of this patient today: 35 minutes. Quality Stroke Does the patient have a stroke diagnosis?: No VTE Prior VTE?: No VTE Risk Level:: Medical - moderate - high VTE Device Contraindication: Treatment Not Indicated VTE Drug Contraindication: N/A - Med Ordered
[2024-12-30 16:00] VITALS: BP 124/59; PULSE 82; RESP 16; TEMP 36.1; O2SAT 95
[2024-12-30 18:59] VITALS: BP 140/67; PULSE 86; RESP 15; TEMP 36.7; O2SAT 97
[2024-12-31 03:22] VITALS: BP 141/72; PULSE 81; RESP 16; TEMP 36.8; O2SAT 91
[2024-12-31 06:53] LABS: Hematocrit 26.9 % (37.0-47.0); Hemoglobin 8.8 g/dl (12.0-16.0); Imm Gran Abs Auto 0.01 X10*3/uL (0.00-0.03); Imm Gran Pct Auto 0.2 % (0.0-0.4); Lymphocytes Absolute Auto 0.7 X10*3/uL (1.2-4.9); MANUAL DIFF FLAG SCAN; Mean Corpuscular HGB Conc 32.7 g/dl (31.0-35.0); Mean Corpuscular Hemoglobin 30.7 pg (27.0-33.0); Mean Corpuscular Volume 93.7 fL (80.0-98.0); NRBC Abs Auto 0.000 X10*3/uL (0.0-0.012); NRBC Pct Auto 0.0 /100WBC (0.0-0.2); PLT CLUMP 1; Red Blood Count 2.87 X10*6/uL (4.20-5.50); SCAN SMEAR FLAG 1
--- NOTE | 2024-12-31 07:19 | P.PNIM_ITS ---
Subjective Subjective Date of Service: 12/31/24 Interval History: Surgery postponed again as the patient's hyperkalemia was 6.1 Urgently page Nephrology who thankfully agreed to dialyze her immediately however surgery was postponed due to anesthesia concerns Likely we will be getting dialysis early in the a.m. and then going for amputation tomorrow Review of Systems Review of Systems: Yes all other systems are reviewed and are negative Physical Exam 2 Exam: Exam: General:Cooperative, no acute distress, alert and oriented x3 Eyes:Legally blind right eye. Cardiac:Regular rate and rhythm, normal S1/S2, no murmurs. Respiratory:Clear to auscultation, no distress. GI:Soft, nontender, nondistended. Extremities: - Left foot: Chronic ulcer on plantar as pect, with malodorous, purulent drainage. Mild tenderness. - Right foot: Open draining ulcer on lat eral aspect. Mild tenderness. Foot demonstrates a chronic wound/ulcer on the heel with surrounding skin discoloration, dryness, and an open area with possible infection and local erythema. This is consistent with her known chronic diabetic/ischemic ulcer and chronic osteomyelitis. Vital Signs: Vital Signs: Last Vital Signs Temp 98.2 F 12/31/24 03:22 Pulse 81 12/31/24 03:22 Resp 16 12/31/24 03:22 BP 141/72 H 12/31/24 03:22 Pulse Ox 91 L 12/31/24 03:22 O2 Del Method Room Air 12/31/24 03:22 O2 Flow Rate 3 12/22/24 14:00 BMI result Body Mass Index 35.2 Objective Data Active Medications Albuterol Sulfate (Albuterol Sulfate 90 Mcg 8 Gm Inhaler) 2 puff INHALE Q6H PRN PRN Reason: Wheezing Carvedilol (Carvedilol 12.5 Mg Tablet) 12.5 mg PO BID ABHI; Protocol Last Admin: 12/30/24 19:44 Dose: 12.5 mg Documented By: CHRISTAL Dextrose (Dextrose 50 % 25 Gm/50 Ml Syringe) 25 gm IVPUSH Q15M PRN; Protocol PRN Reason: per Hypoglycemia Standing Ord. Diphenhydramine HCl (Diphenhydramine Hcl 50 Mg/Ml Vial) 12.5 mg IVPUSH Q6H PRN PRN Reason: Itching Last Admin: 12/31/24 01:50 Dose: 12.5 mg Documented By: CHRISTAL Glucose (Glucose Gel 15 Gm Gel..Gram.) 15 gm PO Q15M PRN; Protocol PRN Reason: per Hypoglycemia Standing Ord. Heparin Sodium (Porcine) (Heparin Sodium,Porcine 5,000 Unit/Ml Vial) 5,000 unit SUBCUT Q12H [facility] Last Admin: 12/31/24 05:41 Dose: Not Given Documented By: CHRISTAL Non-Admin Reason: to OR today Hydralazine HCl (Hydralazine Hcl 50 Mg Tablet) 50 mg PO TID [facility]; Protocol Last Admin: 12/30/24 19:43 Dose: 50 mg Documented By: CHRISTAL Hydralazine HCl (Hydralazine Hcl 20 Mg/Ml Vial) 10 mg IVPUSH Q6H PRN; Protocol PRN Reason: SBP > 160 Last Admin: 12/22/24 20:32 Dose: 10 mg Documented By: KATIE Hydromorphone HCl (Hydromorphone Hcl 1 Mg/Ml Syringe) 1 mg IVPUSH Q6H PRN; Protocol PRN Reason: Pain, Severe (Pain Scale 7-10) Last Admin: 12/31/24 01:49 Dose: 1 mg Documented By: CHRISTAL Insulin Human Lispro (Insulin Lispro 100 Unit/Ml 3 Ml Vial) 0 unit SUBCUT QIDACHS [facility]; Protocol Last Admin: 12/30/24 21:35 Dose: Not Given Documented By: CHRISTAL Non-Admin Reason: refused POC Metoclopramide HCl (Metoclopramide Hcl 10 Mg Tablet) 10 mg PO Q6H PRN PRN Reason: Nausea and Vomiting Ondansetron HCl (Ondansetron Hcl 4 Mg/2 Ml Vial) 4 mg IVPUSH Q6H PRN PRN Reason: Nausea and Vomiting Last Admin: 12/29/24 18:48 Dose: 4 mg Documented By: TANNERQC Labs 12/31/24 06:16 12/31/24 06:16 Labs: Laboratory Results - last 24 hr 12/30/24 12/30/24 12/31/24 08:28 11:22 06:16 MCV Cancelled MCH Cancelled MCHC Cancelled RDW Cancelled Plt Count Cancelled MPV Cancelled Absolute Nucleated RBC Cancelled Nucleated RBC % (auto) Cancelled Hold Purple Top SEE NOTE Anion Gap Cancelled Estim Creat Clear Calc Cancelled Estimated GFR Cancelled Random Glucose Cancelled Calcium Cancelled Urine Opiates Screen POSITIVE H Ur Buprenorphine Scrn Not Detected Ur Oxycodone Screen Not Detected Urine Methadone Screen Not Detected Urine Fentanyl Screen Not Detected Ur Barbiturates Screen Not Detected Ur Phencyclidine Scrn Not Detected Ur Amphetamines Screen Not Detected U Benzodiazepines Scrn Not Detected Urine Cocaine Screen Not Detected U Marijuana (THC) Screen Not Detected Assessment and Plan (1) Chronic osteomyelitis: Status: Acute Plan Reason for postponement of surgery today: Surgery postponed again as the patient's hyperkalemia was 6.1 Urgently page Nephrology who thankfully agreed to dialyze her immediately however surgery was postponed due to anesthesia concerns Likely we will be getting dialysis early in the a.m. and then going for amputation tomorrow Pt is a 34-year-old woman with ESRD on hemodialysis (noncompliant), poorly controlled diabetes, PAD s/p bilateral transmetatarsal amputation, chronic left foot osteomyelitis, and multiple recent hospitalizations, presenting after a mechanical fall at home and missed dialysis and is to undergo amputation of L foot for surgical mx of Chronic OM. Postponed today as pt had hyperkalemia per anesthesia. Chronic (doesn't appear to have an acute flare) nonhealing L foot OM in a poorly controlled, noncompliant DM2 to undergo L BKA amputation for definitive mx- postponed 2/2 hyperK in an ESRD pt Chronic, non-healing plantar/lateral foot ulcer with purulent drainage, underlying chronic osteomyelitis (5th metatarsal), previously evaluated by ID and surgery. Amputation (BKA) discussed as a future option; planned with surgery to happen p ossibly tomorrow (hopefully) s/p ESRD, NPO from midnight Cont WOund care, offload wt , no abx per ID input, Ortho and surgery consulted Will check daily labs and medically mx as tolerated in an ESRD pt ESRD on Hemodialysis / Missed Dialysis / Hyperkalemia - persistent hyperkalemia- received medical management and an extra session of hemodialysis today 12/31/2024, tomorrow we will have another HD per abhi Uncontrolled Diabetes Mellitus - will check A1c, Fructosamine- Check A1c, FRuctosamine, ISS while in pt to maintain euglycemia Hypertensionsive urgency likely 2/2 missed HD POA - normalised s/p HD per abhi and meds - will uptitrate and adjust to maintain normotension Cardiomyopathy (HFrEF) 41% per TTE 05/30/24 - GDMT as tolerated , will likely need OP PCP mx for optimal mx as pt likely wouldn't tolerate if we were to initiate all the meds, Avoid SPironolactne given ESRD and persistent HYperK Chronic Pain / h/o Opioid Dependence Chronic pain related to neuropathy, chronic wounds, and prior amputations. History of opioid dependence. Utox needed to be done POA , will check now and consider addcition med if needed, will avoid narcotics as much as possible given h/o opiod dependence. Other Chronic Comorbidities- History of relapsing-remitting MS vs. central pontine myelinolysis, chronic anemia, C. difficile infection (on fidaxomicin), depression/anxiety, legal blindness. * Social work/case management for support and adherence. * Monitor for relapses or exacerbations Noncompliance / Frequent Hospitalizations Multiple recent admissions for similar issues, poor adherence to dialysis and medications, limited social support. PLAN * Engage case management and social work for adherence barriers. * Assess for eligibility for home health or VNA services. * Discuss goals of care and advance directives as appropriate. - VTE: Heparin 5000 t.i.d. - CODE STATUS: Full code - DIET: Renal - will initiate low K diet This note is constructed using voice recognition software. While every effort has been made to ensure accuracy, personnel representative errors may have been included. Patient needs hospitalization as she will likely undergo surgical management/orthopedic management tomorrow Continues to need close monitoring of electrolytes and hemodialysis Total time managing care of this patient today: 35 minutes. Quality Stroke Does the patient have a stroke diagnosis?: No VTE Prior VTE?: No VTE Risk Level:: Medical - moderate - high VTE Device Contraindication: Treatment Not Indicated VTE Drug Contraindication: N/A - Med Ordered
[2024-12-31 07:21] LABS: Alanine Aminotransferase 22 U/L (0-31); Albumin Level 3.7 g/dL (3.5-5.0); Alkaline Phosphatase 149 U/L (39-117); Anion Gap 18 (12-20); Aspartate Amino Transferase 30 U/L (5-31); Blood Urea Nitrogen 70 mg/dL (9-16); Calcium 8.0 mg/dL (8.4-10.2); Carbon Dioxide 23 mmol/L (22-29); Chloride 102 mmol/L (96-108); Creatinine Clr Calc Pharmacy 9.4; Estimated Glomerular Filt Rate 5; Potassium 6.1 mmol/L (3.3-5.1); Sodium 137 mmol/L (135-145); Total Protein 7.2 g/dL (6.5-8.0)
[2024-12-31 07:33] VITALS: BP 176/86; PULSE 84; RESP 16; TEMP 36; O2SAT 95
[2024-12-31 07:42] LABS: Glucose, Whole Blood 104 mg/dL (60-115)
[2024-12-31] MEDS: Albuterol Sulfate 7.5 MG, Albuterol Sulfate (0.083%) 2.5 MG 10 MG INHALE (08:11)
[2024-12-31 08:14] VITALS: PULSE 84; RESP 16; O2SAT 97
--- NOTE | 2024-12-31 08:39 | P.PNGS_ITS ---
Subjective Subjective Date of Service: 12/31/24 <Regino Sauceda PA-C - Last Filed: 12/31/24 15:14> 12/31/24 <Tu Rajput MD - Last Filed: 12/31/24 08:41> Interval history: no new complaints. <Regino Sauceda PA-C - Last Filed: 12/31/24 15:14> Physical Exam 2 Vital Signs: Vital Signs: Last Vital Signs Temp 96.8 F 12/31/24 07:33 Pulse 84 12/31/24 08:14 Resp 16 12/31/24 08:14 BP 176/86 H 12/31/24 07:33 Pulse Ox 95 12/31/24 07:33 O2 Del Method Room Air 12/31/24 07:33 O2 Flow Rate 3 12/22/24 14:00 BMI result Body Mass Index 35.2 <Regino Sauceda PA-C - Last Filed: 12/31/24 15:14> Const: General: comfortable and no acute distress <Regino Sauceda PA-C - Last Filed: 12/31/24 15:14> Orientation/consciousness: patient oriented x3 <Regino Sauceda PA-C - Last Filed: 12/31/24 15:14> Neuro: General: patient oriented x3 <LEXA Gomez Last Filed: 12/31/24 15:14> Extrem: Other: Dressings in place <Regino Sauceda PA-C - Last Filed: 12/31/24 15:14> Objective Data Active Medications Albuterol Sulfate (Albuterol Sulfate 90 Mcg 8 Gm Inhaler) 2 puff INHALE Q6H PRN PRN Reason: Wheezing Carvedilol (Carvedilol 12.5 Mg Tablet) 12.5 mg PO BID [facility]; Protocol Last Admin: 12/30/24 19:44 Dose: 12.5 mg Documented By: CHRISTAL Dextrose (Dextrose 50 % 25 Gm/50 Ml Syringe) 25 gm IVPUSH Q15M PRN; Protocol PRN Reason: per Hypoglycemia Standing Ord. Diphenhydramine HCl (Diphenhydramine Hcl 50 Mg/Ml Vial) 12.5 mg IVPUSH Q6H PRN PRN Reason: Itching Last Admin: 12/31/24 08:23 Dose: 12.5 mg Documented By: NEEMA Glucose (Glucose Gel 15 Gm Gel..Gram.) 15 gm PO Q15M PRN; Protocol PRN Reason: per Hypoglycemia Standing Ord. Heparin Sodium (Porcine) (Heparin Sodium,Porcine 5,000 Unit/Ml Vial) 5,000 unit SUBCUT Q12H [facility] Last Admin: 12/31/24 05:41 Dose: Not Given Documented By: CHRISTAL Non-Admin Reason: to OR today Hydralazine HCl (Hydralazine Hcl 50 Mg Tablet) 50 mg PO TID [facility]; Protocol Last Admin: 12/31/24 07:20 Dose: Not Given Documented By: NEEMA Non-Admin Reason: held for OR Hydralazine HCl (Hydralazine Hcl 20 Mg/Ml Vial) 10 mg IVPUSH Q6H PRN; Protocol PRN Reason: SBP > 160 Last Admin: 12/22/24 20:32 Dose: 10 mg Documented By: KATIE Hydromorphone HCl (Hydromorphone Hcl 1 Mg/Ml Syringe) 1 mg IVPUSH Q6H PRN; Protocol PRN Reason: Pain, Severe (Pain Scale 7-10) Last Admin: 12/31/24 08:24 Dose: 1 mg Documented By: NEEMA Insulin Human Lispro (Insulin Lispro 100 Unit/Ml 3 Ml Vial) 0 unit SUBCUT QIDACHS [facility]; Protocol Last Admin: 12/31/24 08:04 Dose: Not Given Documented By: NEEMA Non-Admin Reason: No Insulin Coverage Metoclopramide HCl (Metoclopramide Hcl 10 Mg Tablet) 10 mg PO Q6H PRN PRN Reason: Nausea and Vomiting Ondansetron HCl (Ondansetron Hcl 4 Mg/2 Ml Vial) 4 mg IVPUSH Q6H PRN PRN Reason: Nausea and Vomiting Last Admin: 12/29/24 18:48 Dose: 4 mg Documented By: ISHAAN <Regino Sauceda PA-C - Last Filed: 12/31/24 15:14> Labs CBC & Chem 7: 12/31/24 06:16 12/31/24 06:16 <Regino Sauceda PA-C - Last Filed: 12/31/24 15:14> Labs: Laboratory Results - last 24 hr 12/30/24 12/30/24 12/31/24 08:28 11:22 06:16 MCV Cancelled MCH Cancelled MCHC Cancelled RDW Cancelled Plt Count Cancelled MPV Cancelled Absolute Nucleated RBC Cancelled Nucleated RBC % (auto) Cancelled Hold Purple Top SEE NOTE Anion Gap Cancelled Estim Creat Clear Calc Estimated GFR POC Glucose Random Glucose Calcium Total Bilirubin AST ALT Alkaline Phosphatase Total Protein Albumin Urine Opiates Screen POSITIVE H Ur Buprenorphine Scrn Not Detected Ur Oxycodone Screen Not Detected Urine Methadone Screen Not Detected Urine Fentanyl Screen Not Detected Ur Barbiturates Screen Not Detected Ur Phencyclidine Scrn Not Detected Ur Amphetamines Screen Not Detected U Benzodiazepines Scrn Not Detected Urine Cocaine Screen Not Detected U Marijuana (THC) Screen Not Detected 12/31/24 12/31/24 12/31/24 06:16 06:16 06:16 MCV MCH MCHC RDW Plt Count MPV Absolute Nucleated RBC Nucleated RBC % (auto) Hold Purple Top Anion Gap 18 Estim Creat Clear Calc Cancelled 9.4 Estimated GFR Cancelled 5 POC Glucose Random Glucose Cancelled Calcium Total Bilirubin AST ALT Alkaline Phosphatase Total Protein Albumin Urine Opiates Screen Ur Buprenorphine Scrn Ur Oxycodone Screen Urine Methadone Screen Urine Fentanyl Screen Ur Barbiturates Screen Ur Phencyclidine Scrn Ur Amphetamines Screen U Benzodiazepines Scrn Urine Cocaine Screen U Marijuana (THC) Screen 12/31/24 12/31/24 12/31/24 06:16 06:16 07:38 MCV MCH MCHC RDW Plt Count MPV Absolute Nucleated RBC Nucleated RBC % (auto) Hold Purple Top Anion Gap Estim Creat Clear Calc Estimated GFR POC Glucose 104 Random Glucose 100 Calcium Cancelled 8.0 L D Total Bilirubin 0.7 AST 30 ALT 22 Alkaline Phosphatase 149 H Total Protein 7.2 Albumin 3.7 Urine Opiates Screen Ur Buprenorphine Scrn Ur Oxycodone Screen Urine Methadone Screen Urine Fentanyl Screen Ur Barbiturates Screen Ur Phencyclidine Scrn Ur Amphetamines Screen U Benzodiazepines Scrn Urine Cocaine Screen U Marijuana (THC) Screen <Regino Sauceda PA-C - Last Filed: 12/31/24 15:14> Procedures Date of Service Date of Service: 12/31/24 <Regino Sauceda PA-C - Last Filed: 12/31/24 15:14> 12/31/24 <Tu Rajput MD - Last Filed: 12/31/24 08:41> Progress Note: A&P Assessment and plan (1) Chronic osteomyelitis: Status: Acute <Regino Sauceda PA-C - Last Filed: 12/31/24 15:14> Assessment and Plan: She was on the schedule for BKA of the left leg today However, her potassium was 6.1 although she had dialysis yesterday Per anesthesiologist, we will need to hold off on procedure for today We will have to figure out timing of BKA for optimal lab values I explained the above to the patient She says she understands <Tu Rajput MD - Last Filed: 12/31/24 08:41> Assessment and Plan: Patient was scheduled for left BKA today. However this case was canceled due to patient's creatinine and potassium being more elevated today than on Sunday even after dialysis yesterday. We will coordinate with hospitalist when the best time for this would be possibly dialysis in the a.m., procedure in the afternoon. Can continue with daily wound care <Regino Sauceda PA-C - Last Filed: 12/31/24 15:14> Time Spent With Patient Time: Total time managing care of this patient today ____ minutes. <Regino Sauceda PA-C - Last Filed: 12/31/24 15:14> Quality Stroke Does the patient have a stroke diagnosis?: No <Regino Sauceda PA-C - Last Filed: 12/31/24 15:14> VTE Prior VTE?: No <Regino Sauceda PA-C - Last Filed: 12/31/24 15:14> VTE Risk Level:: Medical - moderate - high <Regino Sauceda PA-C - Last Filed: 12/31/24 15:14> VTE Device Contraindication: Treatment Not Indicated <Regino Sauceda PA-C - Last Filed: 12/31/24 15:14> VTE Drug Contraindication: N/A - Med Ordered <Regino Sauceda PA-C - Last Filed: 12/31/24 15:14>
[2024-12-31 08:50] LABS: White Blood Count 4.4 X10*3/uL (4.8-10.8)
[2024-12-31 08:51] LABS: Platelet Count 96 X10*3/uL (160-400)
[2024-12-31 08:51] LABS: Glucose, Whole Blood 127 mg/dL (60-115)
--- NOTE | 2024-12-31 11:55 | MHC.CM.PN ---
Not medically cleared for dc. Awaiting surgery. CM will continue to follow.
--- NOTE | 2024-12-31 12:50 | MHC.CLN ---
CONSULT DIET RX: DIABETIC 1800 KCALS, 2 GRAM SODIUM, LOW POTASSIUM, LOW PHOSPHORUS. PATIENT WITH ESRD ON HD. LEFT BKA PROCEDURE POSTPONED DUE TO ELEVATED POTASSIUM. NUTRITION CONSULT FOR DIETARY RESTRICTIONS. [place] [facility] [place]IS FACILITY FOLLOWS PATIENT'S LABS, NUTRITION AND PROVIDES EDUCATION. CURRENT DIET ORDER APPROPRIATE. FOLLOW FOR PO INTAKE, LABS, AND PLAN OF CARE.
[2024-12-31 15:02] VITALS: BP 125/72; PULSE 98; RESP 20; O2SAT 95
[2024-12-31 15:22] VITALS: TEMP 36.1
[2024-12-31 15:49] LABS: Glucose, Whole Blood 167 mg/dL (60-115)
--- NOTE | 2024-12-31 16:43 | PC.NURSE ---
MD Marcelino made aware of pts critical K via tiger text at 0720. Per Chari, 5 units IVP Reg Insulin and 1mg IVP Glucagon given with cloth examiner at 0816 per APR. Pt tolerated well, POC recheck after administration 127. Per MD Rajput and surgical team pts surgery postponed until tomorrow pending labs, pt aware. Per Renal team pt to receive HD today, pt left unit at 11:10 and returned approximately 1500, pt tolerated well. Pt refusing PO hydrazine and SQ insulin/Heparin. Pt refusing bed alarm, all other safety measures in place. Education provided to pt on importance of medication adherence and safety measures.
--- NOTE | 2024-12-31 17:50 | P.CDIM_ITS ---
PROVIDER RESPONSE TEXT: To clarify, the appropriate diagnosis supported by the clinical indicators: Other (explain): chronic DM OM foot ulcers QUERY TEXT: PHYSICIAN'S DOCUMENTATION REQUEST Date of Query: 12/31/2024 09:41 AM EST Patient Name: Shereen Taylor Admit Date: 12/23/2024 Dear Padmini Marcelino MD, A review of the medical record indicates additional documentation may be needed. Please review below and update the documentation accordingly. Clinical Indicators: right foot open draining diabetic ulcer lateral aspect and hell consistent with known chronic diabetic/ischemic ulcer and chronic osteomyelitis Based on the above, could you please provide further information regarding severity of the ulcer/wound: skin breakdown only exposed fat layer ( i.e. subcutaneous tissue) muscle involvement without evidence of necrosis muscle necrosis bone involvement without evidence of necrosis bone necrosis Other (explain) Clinically unable to determine (explain) Thank you, Latoya Hooker RN Use of terms such as suspected, likely, concern for, or probable (associated with a specific diagnosis that is being evaluated, monitored, or treated as if it exists) are acceptable and can be coded in the inpatient setting, when documented at the time of discharge. Please use your independent medical judgment in providing your response. THIS QUERY IS PART OF THE PERMANENT MEDICAL RECORD
[2024-12-31 19:19] VITALS: BP 148/75; PULSE 89; RESP 18; TEMP 36.1; O2SAT 94
[2025-01-01 03:13] VITALS: BP 121/66; PULSE 89; RESP 16; TEMP 36.2; O2SAT 96
[2025-01-01 07:54] LABS: Glucose, Whole Blood 107 mg/dL (60-115)
[2025-01-01 07:58] VITALS: BP 171/86; PULSE 83; RESP 18; TEMP 36.2; O2SAT 94
[2025-01-01 09:52] VITALS: RESP 18
[2025-01-01 11:54] LABS: Glucose, Whole Blood 78 mg/dL (60-115)
--- NOTE | 2025-01-01 12:03 | P.PNIM_ITS ---
Subjective Subjective Date of Service: 01/01/25 Interval History: Patient seen and examined at bedside this morning, per surgery, unable to perform BKA today. Patient at this time denies any complaints. Review of Systems Review of Systems: Yes all other systems are reviewed and are negative Physical Exam 2 Exam: Exam: General:Cooperative, no acute distress, alert and oriented x3 Eyes:Legally blind right eye. Cardiac:Regular rate and rhythm, normal S1/S2, no murmurs. Respiratory:Clear to auscultation, no distress. GI:Soft, nontender, nondistended. Extremities: - Left foot: Chronic ulcer on plantar as pect, w/ dressing in place - Right foot: Open draining ulcer on lat eral aspect. Mild tenderness. Vital Signs: Vital Signs: Last Vital Signs Temp 97.2 F 01/01/25 07:58 Pulse 83 01/01/25 07:58 Resp 18 01/01/25 09:52 BP 171/86 H 01/01/25 07:58 Pulse Ox 94 01/01/25 07:58 O2 Del Method Room Air 01/01/25 07:58 O2 Flow Rate 3 12/22/24 14:00 BMI result Body Mass Index 35.2 Objective Data Active Medications Albuterol Sulfate (Albuterol Sulfate 90 Mcg 8 Gm Inhaler) 2 puff INHALE Q6H PRN PRN Reason: Wheezing Carvedilol (Carvedilol 12.5 Mg Tablet) 12.5 mg PO BID [facility]; Protocol Last Admin: 01/01/25 08:57 Dose: 12.5 mg Documented By: RUBA Dextrose (Dextrose 50 % 25 Gm/50 Ml Syringe) 25 gm IVPUSH Q15M PRN; Protocol PRN Reason: per Hypoglycemia Standing Ord. Diphenhydramine HCl (Diphenhydramine Hcl 50 Mg/Ml Vial) 12.5 mg IVPUSH Q6H PRN PRN Reason: Itching Last Admin: 01/01/25 09:51 Dose: 12.5 mg Documented By: RUBA Glucose (Glucose Gel 15 Gm Gel..Gram.) 15 gm PO Q15M PRN; Protocol PRN Reason: per Hypoglycemia Standing Ord. Heparin Sodium (Porcine) (Heparin Sodium,Porcine 5,000 Unit/Ml Vial) 5,000 unit SUBCUT Q12H [facility] Last Admin: 01/01/25 04:03 Dose: Not Given Documented By: KELLY Non-Admin Reason: Patient Refused Hydralazine HCl (Hydralazine Hcl 50 Mg Tablet) 50 mg PO TID [facility]; Protocol Last Admin: 01/01/25 08:57 Dose: 50 mg Documented By: RUBA Hydralazine HCl (Hydralazine Hcl 20 Mg/Ml Vial) 10 mg IVPUSH Q6H PRN; Protocol PRN Reason: SBP > 160 Last Admin: 12/22/24 20:32 Dose: 10 mg Documented By: KATIE Hydromorphone HCl (Hydromorphone Hcl 1 Mg/Ml Syringe) 1 mg IVPUSH Q6H PRN; Protocol PRN Reason: Pain, Severe (Pain Scale 7-10) Last Admin: 01/01/25 09:52 Dose: 1 mg Documented By: RUBA Insulin Human Lispro (Insulin Lispro 100 Unit/Ml 3 Ml Vial) 0 unit SUBCUT QIDACHS [facility]; Protocol Last Admin: 01/01/25 07:59 Dose: Not Given Documented By: RUBA Non-Admin Reason: No Insulin Coverage Metoclopramide HCl (Metoclopramide Hcl 10 Mg Tablet) 10 mg PO Q6H PRN PRN Reason: Nausea and Vomiting Ondansetron HCl (Ondansetron Hcl 4 Mg/2 Ml Vial) 4 mg IVPUSH Q6H PRN PRN Reason: Nausea and Vomiting Last Admin: 12/31/24 21:20 Dose: 4 mg Documented By: KELLY Labs 12/31/24 06:16 12/31/24 06:16 Labs: Laboratory Results - last 24 hr 12/31/24 01/01/25 01/01/25 15:45 07:50 11:50 POC Glucose 167 H 107 78 Assessment and Plan (1) ESRD on hemodialysis: Status: Acute (2) Chronic osteomyelitis: Status: Acute (3) Type II diabetes mellitus: Status: Acute Plan Pt is a 34-year-old woman with ESRD on hemodialysis (noncompliant), poorly controlled diabetes, PAD s/p bilateral transmetatarsal amputation, chronic left foot osteomyelitis, and multiple recent hospitalizations, presenting after a mechanical fall at home and missed dialysis and is to undergo amputation of L foot for surgical mx of Chronic OM. repostponed today. awaiting labs Chronic nonhealing L foot OM -awaiting for L BKA for definitive treatment -will keep NPO from midnight, awaiting for surgery and anesthesia. -Cont Wound care, offload wt -no abx per ID -Will check daily labs and medically mx as tolerated in an ESRD pt ESRD on Hemodialysis Hyperkalemia likely 2/2 ESRD -Continue w. hemodialysis, monitor for encephalopathy, fluid overload T2DM, chronic -a1c 5.7%, however given patients Hb, could be inaccurate. -continue w/ ISS, monitor labs, goal 140-180mg/dL Cardiomyopathy (HFrEF) 41% per TTE 05/30/24 -continue medications, unable to start spironolactone in setting of ESRD and Hyperkalemia. 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 difficile infection (on fidaxomicin), depression/anxiety, legal blindness. - VTE: Heparin 5000 t.i.d. - CODE STATUS: Full code - DIET: Renal Disposition: All questions and concerns with the patient were answered to satisfaction. All pertinent clinical documents, images and labs were reviewed. DISCLAIMER: This document was created using voice recognition software. Any mistakes in the prescription are unintentional. An attempt was made to focus for accuracy, but to expedite availability, some errors may persist. Please contact with any need for correction or further clarification Total time managing care of this patient today: 55 minutes. Quality Stroke Does the patient have a stroke diagnosis?: No VTE Prior VTE?: No VTE Risk Level:: Medical - moderate - high VTE Device Contraindication: Treatment Not Indicated VTE Drug Contraindication: N/A - Med Ordered
--- NOTE | 2025-01-01 12:54 | P.PNNP_ITS ---
Subjective Subjective Date of Service: 12/31/24 Interval history: See and examiend, events noted; incr K so HD manjit barton--currently on hD Physical Exam 2 Vital Signs: Vital Signs: Last Vital Signs Temp 97.2 F 01/01/25 07:58 Pulse 83 01/01/25 07:58 Resp 18 01/01/25 09:52 BP 171/86 H 01/01/25 07:58 Pulse Ox 94 01/01/25 07:58 O2 Del Method Room Air 01/01/25 07:58 O2 Flow Rate 3 12/22/24 14:00 BMI result Body Mass Index 35.2 Const: General: cooperative, healthy appearing, comfortable and no acute distress Orientation/consciousness: patient oriented x3 Limitations: no limitations HEENT: Head: Yes normal to inspection and Yes atraumatic Ears: hearing grossly normal bilaterally General nose exam: Normal external nose present Face and sinus: Yes normal facial exam Eyes: General: appearance normal, both eyes and all related structures EOM: EOMs intact bilaterally Neck: Other: C-collar in place. Cervical tenderness noted. Neck: Yes normal visual inspection and Yes no meningeal signs Resp: Effort & Inspection: normal respiratory effort and no respiratory distress Auscultation: clear to auscultation bilaterally, no crackles and no wheezes Cardio: Rate: regular rate Heart sounds: S1 normal heart sound present and S2 normal heart sound present GI: Inspection: Yes normal to inspection Palpation (GI): Soft to palpation, nontender, no guarding and not rigid : General: Yes no CVA tenderness Back/Spine/Pelvis: Other: No midline cervical/thoracic/lumbar spinous tenderness/step-off or deformity Back: no CVA tenderness Skin: Rashes: no rashes Wounds: no wounds Neuro: General: patient oriented x3, tone normal, moves all extremities, no meningeal signs and no focal motor deficits Cranial nerves: Yes CN's II-XII intact bilaterally Gait exam (Neuro): Normal gait present Extrem: Other: Bilateral TMA left foot: 4x4 cm ulcer on the plantar ascpect of the foot, scant serosanguenious drainage.thick callous on the surrounding wound border. lateral foot ulcer, very tender, limiting exam. there was a small fluid collection jsut superior to the wound that expressed some fluid through the wound. malodor. General: Yes normal to inspection Objective Data Labs 12/31/24 06:16 12/31/24 06:16 Labs: Laboratory Results - last 24 hr 12/31/24 01/01/25 01/01/25 15:45 07:50 11:50 POC Glucose 167 H 107 78 Microbiology Microbiology Results: Microbiology 12/22/24 09:22 Blood - Venous Blood Culture - Final No growth after 5 days. 12/22/24 09:22 Blood - Venous Blood Culture - Final No growth after 5 days. Procedures Date of Service Date of Service: 01/01/25 Assessment & Plan Assessment and plan (1) Noncompliance: Status: Resolved (2) Opioid dependence: Status: Resolved (3) PAD (peripheral artery disease): Status: Inactive (4) DM foot ulcer: Status: Resolved (5) Hypoglycemia: Status: Resolved (6) Gastroparesis: Status: Inactive (7) ESRD on dialysis: Status: Inactive (8) Renal failure: Status: Inactive (9) Hyperkalemia: Status: Acute (10) Anemia: Status: Inactive (11) Osteomyelitis: Status: Inactive (12) Acute osteomyelitis of left foot: Status: Resolved (13) Acute pain of left foot: Status: Resolved (14) Plantar ulcer of left foot: Status: Inactive (15) Cerebral microvascular disease: Status: Inactive (16) Relapsing remitting multiple sclerosis: Status: Inactive (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 Progress Note: Quality Stroke Does the patient have a stroke diagnosis?: No
--- NOTE | 2025-01-01 13:44 | HO.WOUND ---
Wound Consult: Initial 34 yr old female admitted to [facility] on 12/23/24- See progress notes and H&P for detailed history. Wound consult placed for bilateral feel wounds. Patient agreeable to assessment and photo documentation. Patient known to wound care team from previous admissions. patient with chronic diabetic foot wounds to bilateral feet. Patient being followed by general surgery - plan for left BKA due to osteo when labs stabilize. Wound care recommendations in place. left heel Left lateral left plantar Right foot bilateral diabetic foot ulcers Recommendations: 1. Turn and Reposition every 2 hours and as needed for patient comfort. Use pillows or wedges to support off loading positions. 2. Off Load all bony prominences with use of pillows and heel boots if needed. Apply Preventative foams where needed. 3. Monitor for incontinence and moisture control, use barrier creams when needed for prevention and treatment. 4. Provide adequate and supplemental nutrition. 5. Order or Continue low air loss mattress. 6. When applicable maintain blood glucose levels per Providers order. Right foot: cleanse with saline, pat dry, apply skin prep adonay wound apply durafiber to wound bed, wrap with rolled gauze, change daily and PRN Left plantar and left heel: skin prep daily and PRN. Left lateral foot: cleanse with saline, apply skin prep adonay wound ,gently pack durafiber ag, cover with gauze, wrap with kerlix, change daily and PRN Re-consult wound care Nurse for wound deterioration or wound changes.
--- NOTE | 2025-01-01 15:09 | P.PNGS_ITS ---
Subjective Subjective Date of Service: 01/01/25 Interval history: No new complaints. Continues to have left foot pain. Denies pain in the right. Denies fevers chills. Had dialysis today for possible surgery. OR unable to accommodate due to schedule. Physical Exam 2 Vital Signs: Vital Signs: Last Vital Signs Temp 97.2 F 01/01/25 07:58 Pulse 83 01/01/25 07:58 Resp 18 01/01/25 09:52 BP 171/86 H 01/01/25 07:58 Pulse Ox 94 01/01/25 07:58 O2 Del Method Room Air 01/01/25 07:58 O2 Flow Rate 3 12/22/24 14:00 BMI result Body Mass Index 35.2 Const: General: comfortable and no acute distress O rientation/consciousness: patient oriented x3 Neuro: General: patient oriented x3 Extrem: Other: Dressings in place, changed by wound care today. See wound care note for evaluation of bilateral foot wounds. Objective Data Active Medications Albuterol Sulfate (Albuterol Sulfate 90 Mcg 8 Gm Inhaler) 2 puff INHALE Q6H PRN PRN Reason: Wheezing Carvedilol (Carvedilol 12.5 Mg Tablet) 12.5 mg PO BID [facility]; Protocol Last Admin: 01/01/25 08:57 Dose: 12.5 mg Documented By: RUBA Dextrose (Dextrose 50 % 25 Gm/50 Ml Syringe) 25 gm IVPUSH Q15M PRN; Protocol PRN Reason: per Hypoglycemia Standing Ord. Diphenhydramine HCl (Diphenhydramine Hcl 50 Mg/Ml Vial) 12.5 mg IVPUSH Q6H PRN PRN Reason: Itching Last Admin: 01/01/25 09:51 Dose: 12.5 mg Documented By: RUBA Glucose (Glucose Gel 15 Gm Gel..Gram.) 15 gm PO Q15M PRN; Protocol PRN Reason: per Hypoglycemia Standing Ord. Heparin Sodium (Porcine) (Heparin Sodium,Porcine 5,000 Unit/Ml Vial) 5,000 unit SUBCUT Q12H [facility] Last Admin: 01/01/25 04:03 Dose: Not Given Documented By: KELLY Non-Admin Reason: Patient Refused Hydralazine HCl (Hydralazine Hcl 50 Mg Tablet) 50 mg PO TID [facility]; Protocol Last Admin: 01/01/25 08:57 Dose: 50 mg Documented By: RUBA Hydralazine HCl (Hydralazine Hcl 20 Mg/Ml Vial) 10 mg IVPUSH Q6H PRN; Protocol PRN Reason: SBP > 160 Last Admin: 12/22/24 20:32 Dose: 10 mg Documented By: KATIE Hydromorphone HCl (Hydromorphone Hcl 1 Mg/Ml Syringe) 1 mg IVPUSH Q6H PRN; Protocol PRN Reason: Pain, Severe (Pain Scale 7-10) Last Admin: 01/01/25 09:52 Dose: 1 mg Documented By: RUBA Insulin Human Lispro (Insulin Lispro 100 Unit/Ml 3 Ml Vial) 0 unit SUBCUT [facility]; Protocol Last Admin: 01/01/25 12:38 Dose: Not Given Documented By: RUBA Non-Admin Reason: No Insulin Coverage Metoclopramide HCl (Metoclopramide Hcl 10 Mg Tablet) 10 mg PO Q6H PRN PRN Reason: Nausea and Vomiting Ondansetron HCl (Ondansetron Hcl 4 Mg/2 Ml Vial) 4 mg IVPUSH Q6H PRN PRN Reason: Nausea and Vomiting Last Admin: 12/31/24 21:20 Dose: 4 mg Documented By: KELLY Labs 12/31/24 06:16 12/31/24 06:16 Labs: Laboratory Results - last 24 hr 12/31/24 01/01/25 01/01/25 15:45 07:50 11:50 POC Glucose 167 H 107 78 Procedures Date of Service Date of Service: 01/01/25 Progress Note: A&P Assessment and plan (1) Chronic osteomyelitis: Status: Acute (2) Acute osteomyelitis of left foot: Status: Resolved (3) DM foot ulcer: Status: Resolved Plan 34 year old female with a complicated medical history including ESRD on dialysis, PAD, MS, chronic osteomyelitis remaining left 5th metatarsal. Patient overall unchanged. Continues to have pain in left foot. Denies fevers chills. Unable to have BKA today due to OR schedule. She did have dialysis today, there have been no labs to trend. Orders are in place for daily labs however patient states phlebotomy had stopped by, left to get something but never returned. Will not be able to proceed with BKA in future without daily labs as we must have current creatinine and potassium prior to surgery for anesthesia to clear. She was seen by wound care, right foot wounds stable. left foot wound unchanges, lateral continues to have purulent drainage. Plantar and heal wounds stable. BKA when electrolytes stable. daily labs wound care consult appreciate, daily dressing changes per wound care recommendations. Time Spent With Patient Time: Total time managing care of this patient today ____ minutes. Quality Stroke Does the patient have a stroke diagnosis?: No VTE Prior VTE?: No VTE Risk Level:: Medical - moderate - high VTE Device Contraindication: Treatment Not Indicated VTE Drug Contraindication: N/A - Med Ordered
[2025-01-01 15:26] VITALS: BP 165/82; PULSE 84; RESP 18; TEMP 36.3; O2SAT 98
[2025-01-01 15:49] LABS: MANUAL DIFF FLAG NO
[2025-01-01 15:51] LABS: Hematocrit 30.1 % (37.0-47.0); Hemoglobin 9.8 g/dl (12.0-16.0); Imm Gran Abs Auto 0.01 X10*3/uL (0.00-0.03); Imm Gran Pct Auto 0.2 % (0.0-0.4); Lymphocytes Absolute Auto 0.6 X10*3/uL (1.2-4.9); Mean Corpuscular HGB Conc 32.6 g/dl (31.0-35.0); Mean Corpuscular Hemoglobin 30.2 pg (27.0-33.0); Mean Corpuscular Volume 92.9 fL (80.0-98.0); NRBC Abs Auto 0.000 X10*3/uL (0.0-0.012); NRBC Pct Auto 0.0 /100WBC (0.0-0.2); Platelet Count 112 X10*3/uL (160-400); Red Blood Count 3.24 X10*6/uL (4.20-5.50); White Blood Count 4.0 X10*3/uL (4.8-10.8)
[2025-01-01 16:16] LABS: Alanine Aminotransferase 21 U/L (0-31); Albumin Level 3.9 g/dL (3.5-5.0); Alkaline Phosphatase 134 U/L (39-117); Anion Gap 16 (12-20); Aspartate Amino Transferase 31 U/L (5-31); Blood Urea Nitrogen 45 mg/dL (9-16); Calcium 8.9 mg/dL (8.4-10.2); Carbon Dioxide 25 mmol/L (22-29); Chloride 101 mmol/L (96-108); Creatinine Clr Calc Pharmacy 12.3; Estimated Glomerular Filt Rate 7; Potassium 5.3 mmol/L (3.3-5.1); Sodium 137 mmol/L (135-145); Total Protein 7.4 g/dL (6.5-8.0)
[2025-01-01 20:00] VITALS: BP 134/75; PULSE 83; RESP 18; TEMP 36.6; O2SAT 96
[2025-01-01 23:11] VITALS: RESP 18
[2025-01-02] VITALS (8 sets, daily range): BP systolic 125–182; BP diastolic 57–90; PULSE 80–89; RESP 18; TEMP 36.1–36.6; O2SAT 96–99
[2025-01-02 06:47] LABS: Alanine Aminotransferase 19 U/L (0-31); Albumin Level 3.6 g/dL (3.5-5.0); Alkaline Phosphatase 131 U/L (39-117); Anion Gap 17 (12-20); Aspartate Amino Transferase 28 U/L (5-31); Blood Urea Nitrogen 54 mg/dL (9-16); Calcium 8.6 mg/dL (8.4-10.2); Carbon Dioxide 23 mmol/L (22-29); Chloride 102 mmol/L (96-108); Creatinine Clr Calc Pharmacy 10.7; Estimated Glomerular Filt Rate 6; Potassium 6.6 mmol/L (3.3-5.1); Sodium 135 mmol/L (135-145); Total Protein 7.1 g/dL (6.5-8.0)
[2025-01-02 06:50] LABS: Hematocrit 28.9 % (37.0-47.0); Hemoglobin 9.3 g/dl (12.0-16.0); Imm Gran Abs Auto 0.02 X10*3/uL (0.00-0.03); Imm Gran Pct Auto 0.5 % (0.0-0.4); Lymphocytes Absolute Auto 0.7 X10*3/uL (1.2-4.9); MANUAL DIFF FLAG SCAN; Mean Corpuscular HGB Conc 32.2 g/dl (31.0-35.0); Mean Corpuscular Hemoglobin 30.7 pg (27.0-33.0); Mean Corpuscular Volume 95.4 fL (80.0-98.0); NRBC Abs Auto 0.000 X10*3/uL (0.0-0.012); NRBC Pct Auto 0.0 /100WBC (0.0-0.2); PLT CLUMP 1; Red Blood Count 3.03 X10*6/uL (4.20-5.50); SCAN SMEAR FLAG 1
[2025-01-02 07:35] LABS: White Blood Count 4.1 X10*3/uL (4.8-10.8)
[2025-01-02 07:36] LABS: Platelet Count 100 X10*3/uL (160-400)
[2025-01-02 07:42] LABS: Glucose, Whole Blood 88 mg/dL (60-115)
[2025-01-02 11:33] LABS: Glucose, Whole Blood 94 mg/dL (60-115)
--- NOTE | 2025-01-02 13:07 | P.PNIM_ITS ---
Subjective Subjective Date of Service: 01/02/25 Interval History: Patient seen examined at bedside this morning, patient currently on dialysis, spoke with surgery, plans on possible surgery on Sunday, with dialysis to be done in the morning. Review of Systems Review of Systems: Yes all other systems are reviewed and are negative Physical Exam 2 Exam: Exam: General:Cooperative, no acute distress, alert and oriented x3 Eyes:Legally blind right eye. Cardiac:Regular rate and rhythm, normal S1/S2, no murmurs. Respiratory:Clear to auscultation, no distress. GI:Soft, nontender, nondistended. Extremities: - Left foot: Chronic ulcer on plantar as pect, w/ dressing in place - Right foot: Open draining ulcer on lat eral aspect. Mild tenderness. Vital Signs: Vital Signs: Last Vital Signs Temp 96.9 F 01/02/25 08:00 Pulse 80 01/02/25 08:00 Resp 18 01/02/25 10:53 BP 168/84 H 01/02/25 08:00 Pulse Ox 98 01/02/25 08:00 O2 Del Method Room Air 01/02/25 08:00 O2 Flow Rate 3 12/22/24 14:00 BMI result Body Mass Index 35.2 Objective Data Active Medications Albuterol Sulfate (Albuterol Sulfate 90 Mcg 8 Gm Inhaler) 2 puff INHALE Q6H PRN PRN Reason: Wheezing Carvedilol (Carvedilol 12.5 Mg Tablet) 12.5 mg PO BID [facility]; Protocol Last Admin: 01/02/25 09:02 Dose: Not Given Documented By: RUBA Non-Admin Reason: Off unit: Dialysis Dextrose (Dextrose 50 % 25 Gm/50 Ml Syringe) 25 gm IVPUSH Q15M PRN; Protocol PRN Reason: per Hypoglycemia Standing Ord. Diphenhydramine HCl (Diphenhydramine Hcl 50 Mg/Ml Vial) 12.5 mg IVPUSH Q6H PRN PRN Reason: Itching Last Admin: 01/02/25 10:51 Dose: 12.5 mg Documented By: RUBA Glucose (Glucose Gel 15 Gm Gel..Gram.) 15 gm PO Q15M PRN; Protocol PRN Reason: per Hypoglycemia Standing Ord. Heparin Sodium (Porcine) (Heparin Sodium,Porcine 5,000 Unit/Ml Vial) 5,000 unit SUBCUT Q12H [facility] Last Admin: 01/02/25 04:44 Dose: Not Given Documented By: ELISE Non-Admin Reason: refused as baseline, but also pre-op Hydralazine HCl (Hydralazine Hcl 50 Mg Tablet) 50 mg PO TID [facility]; Protocol Last Admin: 01/02/25 09:02 Dose: Not Given Documented By: RUBA Non-Admin Reason: Off unit: Dialysis Hydralazine HCl (Hydralazine Hcl 20 Mg/Ml Vial) 10 mg IVPUSH Q6H PRN; Protocol PRN Reason: SBP > 160 Last Admin: 12/22/24 20:32 Dose: 10 mg Documented By: KATIE Hydromorphone HCl (Hydromorphone Hcl 1 Mg/Ml Syringe) 1 mg IVPUSH Q6H PRN; Protocol PRN Reason: Pain, Severe (Pain Scale 7-10) Last Admin: 01/02/25 10:53 Dose: 1 mg Documented By: RUBA Insulin Human Lispro (Insulin Lispro 100 Unit/Ml 3 Ml Vial) 0 unit SUBCUT QIDACHS [facility]; Protocol Last Admin: 01/02/25 11:51 Dose: Not Given Documented By: RUBA Non-Admin Reason: No Insulin Coverage Metoclopramide HCl (Metoclopramide Hcl 10 Mg Tablet) 10 mg PO Q6H PRN PRN Reason: Nausea and Vomiting Ondansetron HCl (Ondansetron Hcl 4 Mg/2 Ml Vial) 4 mg IVPUSH Q6H PRN PRN Reason: Nausea and Vomiting Last Admin: 01/02/25 07:42 Dose: 4 mg Documented By: RUBA Labs 01/02/25 05:59 01/02/25 05:59 Labs: Laboratory Results - last 24 hr 01/01/25 01/02/25 01/02/25 15:44 05:59 07:37 MCV 92.9 95.4 MCH 30.2 30.7 MCHC 32.6 32.2 RDW 14.1 14.1 Plt Count 112 L 100 L MPV 12.2 12.7 H Immature Gran % (Auto) 0.2 0.5 H Neut % (Auto) 62.3 59.3 Lymph % (Auto) 15.4 L 18.0 L Hancock % (Auto) 16.4 H 16.3 H Eos % (Auto) 4.7 H 5.4 H Baso % (Auto) 1.0 0.5 Lymph # (Auto) 0.6 L 0.7 L Hancock # (Auto) 0.7 0.7 Eos # (Auto) 0.2 0.2 Baso # (Auto) 0.0 0.0 Abs Immat Gran (auto) 0.01 0.02 Absolute Neuts (auto) 2.5 2.4 Absolute Nucleated RBC 0.000 0.000 Nucleated RBC % (auto) 0.0 0.0 Smear Tech's Comments VERIFIED Anion Gap 16 17 Estim Creat Clear Calc 12.3 10.7 Estimated GFR 7 6 POC Glucose 88 Random Glucose 204 H 91 Calcium 8.9 D 8.6 Total Bilirubin 0.6 0.6 AST 31 28 ALT 21 19 Alkaline Phosphatase 134 H 131 H Total Protein 7.4 7.1 Albumin 3.9 3.6 01/02/25 11:28 MCV MCH MCHC RDW Plt Count MPV Immature Gran % (Auto) Neut % (Auto) Lymph % (Auto) Hancock % (Auto) Eos % (Auto) Baso % (Auto) Lymph # (Auto) Hancock # (Auto) Eos # (Auto) Baso # (Auto) Abs Immat Gran (auto) Absolute Neuts (auto) Absolute Nucleated RBC Nucleated RBC % (auto) Smear Tech's Comments Anion Gap Estim Creat Clear Calc Estimated GFR POC Glucose 94 Random Glucose Calcium Total Bilirubin AST ALT Alkaline Phosphatase Total Protein Albumin Assessment and Plan (1) Type II diabetes mellitus: Status: Acute (2) ESRD on hemodialysis: Status: Acute (3) Chronic osteomyelitis: Status: Acute Plan 34-year-old woman with ESRD on hemodialysis (noncompliant), poorly controlled diabetes, PAD s/p bilateral transmetatarsal amputation, chronic left foot osteomyelitis, and multiple recent hospitalizations, presenting after a mechanical fall at home and missed dialysis and is to undergo amputation of L foot for surgical mx of Chronic OM. repostponed due to persistent hyperkalemia Chronic nonhealing L foot OM -awaiting L BKA for definitive treatment -possible surgery on sunday -Cont Wound care, offload wt -no abx per ID -Will check daily labs and medically mx as tolerated in an ESRD pt ESRD on Hemodialysis Hyperkalemia likely 2/2 ESRD -Continue w. hemodialysis, monitor for encephalopathy, fluid overload T2DM, chronic -a1c 5.7%, however given patients Hb, could be inaccurate. -continue w/ ISS, monitor labs, goal 140-180mg/dL Cardiomyopathy (HFrEF) 41% per TTE 05/30/24 -continue medications, unable to start spironolactone in setting of ESRD and Hyperkalemia. 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 difficile infection (on fidaxomicin), depression/anxiety, legal blindness. - VTE: Heparin 5000 t.i.d. - CODE STATUS: Full code - DIET: Renal Disposition: All questions and concerns with the patient were answered to satisfaction. All pertinent clinical documents, images and labs were reviewed. DISCLAIMER: This document was created using voice recognition software. Any mistakes in the prescription are unintentional. An attempt was made to focus for accuracy, but to expedite availability, some errors may persist. Please contact with any need for correction or further clarification Total time managing care of this patient today: 35 minutes. Quality Stroke Does the patient have a stroke diagnosis?: No VTE Prior VTE?: No VTE Risk Level:: Medical - moderate - high VTE Device Contraindication: Treatment Not Indicated VTE Drug Contraindication: N/A - Med Ordered
--- NOTE | 2025-01-02 14:13 | MHC.CM.PN ---
PT NOT YET MEDICALLY CLEARED, POTENTIAL SURGERY SUNDAY DCP: HOME, RESUME HADOOP ANALYST AND CD [facility] BLS TRANSPORT
[2025-01-03 03:22] VITALS: BP 137/62; PULSE 81; RESP 18; TEMP 36.4; O2SAT 93
[2025-01-03 06:09] VITALS: RESP 20
[2025-01-03 07:16] VITALS: BP 150/90; PULSE 83; RESP 17; TEMP 36.6; O2SAT 96
[2025-01-03 09:43] LABS: Alanine Aminotransferase 24 U/L (0-31); Albumin Level 4.2 g/dL (3.5-5.0); Alkaline Phosphatase 158 U/L (39-117); Anion Gap 18 (12-20); Aspartate Amino Transferase 35 U/L (5-31); Blood Urea Nitrogen 36 mg/dL (9-16); Calcium 9.5 mg/dL (8.4-10.2); Carbon Dioxide 23 mmol/L (22-29); Chloride 100 mmol/L (96-108); Creatinine Clr Calc Pharmacy 13.2; Estimated Glomerular Filt Rate 7; Potassium 5.3 mmol/L (3.3-5.1); Sodium 136 mmol/L (135-145); Total Protein 8.1 g/dL (6.5-8.0)
[2025-01-03 10:11] LABS: Hematocrit 33.0 % (37.0-47.0); Hemoglobin 10.8 g/dl (12.0-16.0); Imm Gran Abs Auto 0.02 X10*3/uL (0.00-0.03); Imm Gran Pct Auto 0.4 % (0.0-0.4); Lymphocytes Absolute Auto 0.7 X10*3/uL (1.2-4.9); Mean Corpuscular HGB Conc 32.7 g/dl (31.0-35.0); Mean Corpuscular Hemoglobin 30.3 pg (27.0-33.0); Mean Corpuscular Volume 92.7 fL (80.0-98.0); NRBC Abs Auto 0.000 X10*3/uL (0.0-0.012); NRBC Pct Auto 0.0 /100WBC (0.0-0.2); Platelet Count 125 X10*3/uL (160-400); Red Blood Count 3.56 X10*6/uL (4.20-5.50); White Blood Count 4.9 X10*3/uL (4.8-10.8)
--- NOTE | 2025-01-03 11:15 | HO.PM.IMPN ---
Subjective Subjective Date of Service: 01/03/25 Interval History: Patient seen examined at bedside this morning, patient with plans on having surgery on Sunday, mentions that she has been taking bananas from home, reason why her potassium was elevated. Patient understands that she will hold off and bananas at this time and potassium rich foods. Review of Systems Review of Systems: Yes all other systems are reviewed and are negative Physical Exam Exam: Exam: General:Cooperative, no acute distress, alert and oriented x3 Eyes:Legally blind right eye. Cardiac:Regular rate and rhythm, normal S1/S2, no murmurs. Respiratory:Clear to auscultation, no distress. GI:Soft, nontender, nondistended. Extremities: - Left foot: Chronic ulcer on plantar aspect, w/ dressing in place - Right foot: Open draining ulcer on lateral aspect. Mild tenderness. Vital Signs: Vital Signs: Last Vital Signs Temp 98 F 01/03/25 07:16 Pulse 83 01/03/25 07:16 Resp 17 01/03/25 07:16 BP 150/90 H 01/03/25 07:16 Pulse Ox 96 01/03/25 07:16 O2 Del Method Room Air 01/03/25 07:16 O2 Flow Rate 3 12/22/24 14:00 BMI result Body Mass Index 35.2 Objective Data Active Medications Albuterol Sulfate (Albuterol Sulfate 90 Mcg 8 Gm Inhaler) 2 puff INHALE Q6H PRN PRN Reason: Wheezing Carvedilol (Carvedilol 12.5 Mg Tablet) 12.5 mg PO BID [facility]; Protocol Last Admin: 01/03/25 08:56 Dose: 12.5 mg Documented By: ROSIE Dextrose (Dextrose 50 % 25 Gm/50 Ml Syringe) 25 gm IVPUSH Q15M PRN; Protocol PRN Reason: per Hypoglycemia Standing Ord. Diphenhydramine HCl (Diphenhydramine Hcl 50 Mg/Ml Vial) 12.5 mg IVPUSH Q6H PRN PRN Reason: Itching Last Admin: 01/03/25 06:13 Dose: 12.5 mg Documented By: MARIEL Glucose (Glucose Gel 15 Gm Gel..Gram.) 15 gm PO Q15M PRN; Protocol PRN Reason: per Hypoglycemia Standing Ord. Heparin Sodium (Porcine) (Heparin Sodium,Porcine 5,000 Unit/Ml Vial) 5,000 unit SUBCUT Q12H [facility] Last Admin: 01/03/25 05:04 Dose: Not Given Documented By: MARIEL Non-Admin Reason: Patient Refused Hydralazine HCl (Hydralazine Hcl 50 Mg Tablet) 50 mg PO TID [facility]; Protocol Last Admin: 01/03/25 08:56 Dose: 50 mg Documented By: ROSIE Hydralazine HCl (Hydralazine Hcl 20 Mg/Ml Vial) 10 mg IVPUSH Q6H PRN; Protocol PRN Reason: SBP > 160 Last Admin: 12/22/24 20:32 Dose: 10 mg Documented By: KATIE Hydromorphone HCl (Hydromorphone Hcl 1 Mg/Ml Syringe) 1 mg IVPUSH Q6H PRN; Protocol PRN Reason: Pain, Severe (Pain Scale 7-10) Last Admin: 01/03/25 06:09 Dose: 1 mg Documented By: MARIEL Insulin Human Lispro (Insulin Lispro 100 Unit/Ml 3 Ml Vial) 0 unit SUBCUT QIDACHS [facility]; Protocol Last Admin: 01/03/25 08:47 Dose: Not Given Documented By: ROSIE Non-Admin Reason: refused poc Metoclopramide HCl (Metoclopramide Hcl 10 Mg Tablet) 10 mg PO Q6H PRN PRN Reason: Nausea and Vomiting Ondansetron HCl (Ondansetron Hcl 4 Mg/2 Ml Vial) 4 mg IVPUSH Q6H PRN PRN Reason: Nausea and Vomiting Last Admin: 01/02/25 23:38 Dose: 4 mg Documented By: MARIEL Labs 01/03/25 09:55 01/03/25 09:04 Labs: Laboratory Results - last 24 hr 01/02/25 01/03/25 01/03/25 11:28 09:04 09:55 MCV 92.7 MCH 30.3 MCHC 32.7 RDW 14.0 Plt Count 125 L MPV 12.3 Immature Gran % (Auto) 0.4 Neut % (Auto) 61.9 Lymph % (Auto) 14.7 L Bertie % (Auto) 17.1 H Eos % (Auto) 5.3 H Baso % (Auto) 0.6 Lymph # (Auto) 0.7 L Bertie # (Auto) 0.8 Eos # (Auto) 0.3 Baso # (Auto) 0.0 Abs Immat Gran (auto) 0.02 Absolute Neuts (auto) 3.0 Absolute Nucleated RBC 0.000 Nucleated RBC % (auto) 0.0 Anion Gap 18 Estim Creat Clear Calc 13.2 Estimated GFR 7 POC Glucose 94 Random Glucose 85 Calcium 9.5 D Total Bilirubin 0.7 AST 35 H ALT 24 Alkaline Phosphatase 158 H Total Protein 8.1 H Albumin 4.2 Assessment and Plan (1) Type II diabetes mellitus: Status: Acute (2) ESRD on hemodialysis: Status: Acute (3) Chronic osteomyelitis: Status: Acute Plan 34-year-old woman with ESRD on hemodialysis (noncompliant), poorly controlled diabetes, PAD s/p bilateral transmetatarsal amputation, chronic left foot osteomyelitis, and multiple recent hospitalizations, presenting after a mechanical fall at home and missed dialysis and is to undergo amputation of L foot for surgical mx of Chronic OM. repostponed due to persistent hyperkalemia Chronic nonhealing L foot OM -awaiting L BKA for definitive treatment, likely on sunday -Cont Wound care, offload wt -no abx per ID -Will check daily labs and medically mx as tolerated in an ESRD pt ESRD on Hemodialysis Hyperkalemia likely 2/2 ESRD -Continue w. hemodialysis, monitor for encephalopathy, fluid overload -counseling given on avoiding food from home containing high potassium content, patient was eating bananas from home T2DM, chronic -a1c 5.7%, however given patients Hb, could be inaccurate. -continue w/ ISS, monitor labs, goal 140-180mg/dL Cardiomyopathy (HFrEF) 41% per TTE 05/30/24 -continue medications, unable to start spironolactone in setting of ESRD and Hyperkalemia. 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 difficile infection (on fidaxomicin), depression/anxiety, legal blindness. - VTE: Heparin 5000 t.i.d. - CODE STATUS: Full code - DIET: Renal Disposition: All questions and concerns with the patient were answered to satisfaction. All pertinent clinical documents, images and labs were reviewed. DISCLAIMER: This document was created using voice recognition software. Any mistakes in the prescription are unintentional. An attempt was made to focus for accuracy, but to expedite availability, some errors may persist. Please contact with any need for correction or further clarification Total time managing care of this patient today: 35 minutes. Quality Stroke Does the patient have a stroke diagnosis?: No VTE Prior VTE?: No VTE Risk Level:: Medical - moderate - high VTE Device Contraindication: Treatment Not Indicated VTE Drug Contraindication: N/A - Med Ordered
[2025-01-03 15:32] VITALS: BP 129/74; PULSE 80; RESP 18; TEMP 36.1; O2SAT 98
[2025-01-03 19:58] VITALS: BP 170/79; PULSE 93; RESP 18; TEMP 36.1; O2SAT 97
[2025-01-04 04:00] VITALS: BP 137/68; PULSE 79; RESP 16; TEMP 36.3; O2SAT 92
[2025-01-04 07:01] VITALS: BP 142/68; PULSE 81; RESP 16; TEMP 37.2; O2SAT 98
[2025-01-04 07:08] LABS: Glucose, Whole Blood 86 mg/dL (60-115)
[2025-01-04 10:01] LABS: MANUAL DIFF FLAG NO
[2025-01-04 10:07] LABS: Hematocrit 31.0 % (37.0-47.0); Hemoglobin 10.3 g/dl (12.0-16.0); Imm Gran Abs Auto 0.02 X10*3/uL (0.00-0.03); Imm Gran Pct Auto 0.4 % (0.0-0.4); Lymphocytes Absolute Auto 0.8 X10*3/uL (1.2-4.9); Mean Corpuscular HGB Conc 33.2 g/dl (31.0-35.0); Mean Corpuscular Hemoglobin 30.6 pg (27.0-33.0); Mean Corpuscular Volume 92.0 fL (80.0-98.0); NRBC Abs Auto 0.000 X10*3/uL (0.0-0.012); NRBC Pct Auto 0.0 /100WBC (0.0-0.2); Platelet Count 119 X10*3/uL (160-400); Red Blood Count 3.37 X10*6/uL (4.20-5.50); White Blood Count 4.9 X10*3/uL (4.8-10.8)
--- NOTE | 2025-01-04 10:29 | P.PNIM_ITS ---
Subjective Subjective Date of Service: 01/04/25 Interval History: Patient seen examined at bedside this morning, patient states that she is feeling well, waiting to have surgery tomorrow, mentioned that she will continue to avoid any bananas fluid time being. Review of Systems Review of Systems: Yes all other systems are reviewed and are negative Physical Exam 2 Exam: Exam: General: AxOx3, No acute distress Head: AT/NC ENT: Moist mucous membranes Neck: supple CVS; RRR, S1 S2 normal Lungs: Clear bilateral breath sounds, no wheezes or crackles Abd: Soft non tender, non distended Ext: no calf tenderness MSK: moving all 4 limbs Skin: Bilateral lower extremity foot wounds with dressings in place, C/D/I Psych: Cooperative with exam Vital Signs: Vital Signs: Last Vital Signs Temp 98.9 F 01/04/25 07:01 Pulse 81 01/04/25 07:01 Resp 16 01/04/25 07:01 BP 142/68 H 01/04/25 07:01 Pulse Ox 98 01/04/25 07:01 O2 Del Method Room Air 01/04/25 07:01 O2 Flow Rate 3 12/22/24 14:00 BMI result Body Mass Index 35.2 Objective Data Active Medications Albuterol Sulfate (Albuterol Sulfate 90 Mcg 8 Gm Inhaler) 2 puff INHALE Q6H PRN PRN Reason: Wheezing Carvedilol (Carvedilol 12.5 Mg Tablet) 12.5 mg PO BID [facility]; Protocol Last Admin: 01/04/25 08:27 Dose: 12.5 mg Documented By: ROSIE Dextrose (Dextrose 50 % 25 Gm/50 Ml Syringe) 25 gm IVPUSH Q15M PRN; Protocol PRN Reason: per Hypoglycemia Standing Ord. Diphenhydramine HCl (Diphenhydramine Hcl 50 Mg/Ml Vial) 12.5 mg IVPUSH Q6H PRN PRN Reason: Itching Last Admin: 01/04/25 08:27 Dose: 12.5 mg Documented By: ROSIE Glucose (Glucose Gel 15 Gm Gel..Gram.) 15 gm PO Q15M PRN; Protocol PRN Reason: per Hypoglycemia Standing Ord. Heparin Sodium (Porcine) (Heparin Sodium,Porcine 5,000 Unit/Ml Vial) 5,000 unit SUBCUT Q12H [facility] Last Admin: 01/04/25 04:56 Dose: Not Given Documented By: KERI Non-Admin Reason: Patient Refused Hydralazine HCl (Hydralazine Hcl 50 Mg Tablet) 50 mg PO TID [facility]; Protocol Last Admin: 01/04/25 08:27 Dose: 50 mg Documented By: ROSIE Hydralazine HCl (Hydralazine Hcl 20 Mg/Ml Vial) 10 mg IVPUSH Q6H PRN; Protocol PRN Reason: SBP > 160 Last Admin: 12/22/24 20:32 Dose: 10 mg Documented By: KATIE Hydromorphone HCl (Hydromorphone Hcl 1 Mg/Ml Syringe) 1 mg IVPUSH Q6H PRN; Protocol PRN Reason: Pain, Severe (Pain Scale 7-10) Last Admin: 01/04/25 08:27 Dose: 1 mg Documented By: ROSIE Insulin Human Lispro (Insulin Lispro 100 Unit/Ml 3 Ml Vial) 0 unit SUBCUT QIDAS [facility]; Protocol Last Admin: 01/04/25 07:17 Dose: Not Given Documented By: ROSIE Non-Admin Reason: No Insulin Coverage Metoclopramide HCl (Metoclopramide Hcl 10 Mg Tablet) 10 mg PO Q6H PRN PRN Reason: Nausea and Vomiting Ondansetron HCl (Ondansetron Hcl 4 Mg/2 Ml Vial) 4 mg IVPUSH Q6H PRN PRN Reason: Nausea and Vomiting Last Admin: 01/02/25 23:38 Dose: 4 mg Documented By: MARIEL Labs 01/04/25 09:42 01/03/25 09:04 Labs: Laboratory Results - last 24 hr 01/04/25 01/04/25 07:05 09:42 MCV 92.0 MCH 30.6 MCHC 33.2 RDW 13.9 Plt Count 119 L MPV 12.1 Immature Gran % (Auto) 0.4 Neut % (Auto) 62.7 Lymph % (Auto) 16.3 L [place] % (Auto) 13.7 H Eos % (Auto) 6.1 H Baso % (Auto) 0.8 Lymph # (Auto) 0.8 L [place] # (Auto) 0.7 Eos # (Auto) 0.3 Baso # (Auto) 0.0 Abs Immat Gran (auto) 0.02 Absolute Neuts (auto) 3.1 Absolute Nucleated RBC 0.000 Nucleated RBC % (auto) 0.0 POC Glucose 86 Assessment and Plan (1) ESRD on hemodialysis: Status: Acute (2) Type II diabetes mellitus: Status: Acute (3) Chronic osteomyelitis: Status: Acute Plan 34-year-old woman with ESRD on hemodialysis (noncompliant), poorly controlled diabetes, PAD s/p bilateral transmetatarsal amputation, chronic left foot osteomyelitis, and multiple recent hospitalizations, presenting after a mechanical fall at home and missed dialysis and is to undergo amputation of L foot for surgical mx of Chronic OM. repostponed due to persistent hyperkalemia Chronic nonhealing L foot OM -awaiting L BKA for definitive treatment, likely tomorrow -Cont Wound care, offload wt -no abx per ID -Will check daily labs and medically mx as tolerated in an ESRD pt ESRD on Hemodialysis Hyperkalemia likely 2/2 ESRD -Continue w. hemodialysis, monitor for encephalopathy, fluid overload -counseling given on avoiding food from home containing high potassium content, patient was recently eating bananas from home T2DM, chronic -a1c 5.7%, however given patients Hb, could be inaccurate. -continue w/ ISS, monitor labs, goal 140-180mg/dL Cardiomyopathy (HFrEF) 41% per TTE 05/30/24 -continue medications, unable to start spironolactone in setting of ESRD and Hyperkalemia. 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 difficile infection (on fidaxomicin), depression/anxiety, legal blindness. - VTE: Heparin 5000 t.i.d. - CODE STATUS: Full code - DIET: Renal Disposition: All questions and concerns with the patient were answered to satisfaction. All pertinent clinical documents, images and labs were reviewed. DISCLAIMER: This document was created using voice recognition software. Any mistakes in the prescription are unintentional. An attempt was made to focus for accuracy, but to expedite availability, some errors may persist. Please contact with any need for correction or further clarification Total time managing care of this patient today: 35 minutes. Quality Stroke Does the patient have a stroke diagnosis?: No VTE Prior VTE?: No VTE Risk Level:: Medical - moderate - high VTE Device Contraindication: Treatment Not Indicated VTE Drug Contraindication: N/A - Med Ordered
[2025-01-04 10:40] LABS: Alanine Aminotransferase 18 U/L (0-31); Albumin Level 3.8 g/dL (3.5-5.0); Alkaline Phosphatase 139 U/L (39-117); Anion Gap 20 (12-20); Aspartate Amino Transferase 27 U/L (5-31); Blood Urea Nitrogen 53 mg/dL (9-16); Calcium 9.0 mg/dL (8.4-10.2); Carbon Dioxide 21 mmol/L (22-29); Chloride 100 mmol/L (96-108); Creatinine Clr Calc Pharmacy 10.1; Estimated Glomerular Filt Rate 5; Potassium 6.0 mmol/L (3.3-5.1); Sodium 135 mmol/L (135-145); Total Protein 7.5 g/dL (6.5-8.0)
[2025-01-04 14:26] VITALS: BP 150/70; PULSE 84; RESP 16; TEMP 35.9; O2SAT 96
[2025-01-04 20:00] VITALS: BP 163/78; PULSE 86; RESP 19; TEMP 36.3; O2SAT 98
[2025-01-04 21:30] VITALS: RESP 18
[2025-01-04 22:00] VITALS: RESP 18
[2025-01-05] VITALS (16 sets, daily range): BP systolic 90–146; BP diastolic 52–77; PULSE 77–85; RESP 11–18; TEMP 36.1–36.6; O2SAT 96–100
[2025-01-05 06:01] LABS: MANUAL DIFF FLAG NO
[2025-01-05 06:12] LABS: Hematocrit 28.7 % (37.0-47.0); Hemoglobin 9.5 g/dl (12.0-16.0); Imm Gran Abs Auto 0.05 X10*3/uL (0.00-0.03); Imm Gran Pct Auto 1.0 % (0.0-0.4); Lymphocytes Absolute Auto 0.8 X10*3/uL (1.2-4.9); Mean Corpuscular HGB Conc 33.1 g/dl (31.0-35.0); Mean Corpuscular Hemoglobin 30.4 pg (27.0-33.0); Mean Corpuscular Volume 92.0 fL (80.0-98.0); NRBC Abs Auto 0.000 X10*3/uL (0.0-0.012); NRBC Pct Auto 0.0 /100WBC (0.0-0.2); Red Blood Count 3.12 X10*6/uL (4.20-5.50); White Blood Count 5.1 X10*3/uL (4.8-10.8)
[2025-01-05 06:13] LABS: Platelet Count 99 X10*3/uL (160-400)
[2025-01-05 06:54] LABS: Alanine Aminotransferase 19 U/L (0-31); Albumin Level 3.7 g/dL (3.5-5.0); Alkaline Phosphatase 141 U/L (39-117); Anion Gap 21 (12-20); Aspartate Amino Transferase 34 U/L (5-31); Blood Urea Nitrogen 65 mg/dL (9-16); Calcium 8.4 mg/dL (8.4-10.2); Carbon Dioxide 17 mmol/L (22-29); Chloride 104 mmol/L (96-108); Creatinine Clr Calc Pharmacy 8.7; Estimated Glomerular Filt Rate 4; Potassium 6.1 mmol/L (3.3-5.1); Sodium 136 mmol/L (135-145); Total Protein 7.1 g/dL (6.5-8.0)
--- NOTE | 2025-01-05 07:27 | PC.NURSE ---
0645- Patient remained NPO, to Dialysis as planned via her bed, critical lab results acknowledged by provider, Question if will proceed with left BKA after dialysi as was planned. Today k+ 6.1, creat 9.83.
[2025-01-05 08:45] LABS: Glucose, Whole Blood 139 mg/dL (60-115)
--- NOTE | 2025-01-05 10:04 | PM.PNGS ---
Subjective Subjective Date of Service: 01/05/25 Interval history: No new complaints Currently undergoing dialysis Admits to pain on left foot ulcer Physical Exam Vital Signs: Vital Signs: Last Vital Signs Temp 97.3 F 01/05/25 03:10 Pulse 77 01/05/25 09:37 Resp 18 01/05/25 03:38 BP 146/64 H 01/05/25 09:37 Pulse Ox 96 01/05/25 03:10 O2 Del Method Room Air 01/05/25 03:10 O2 Flow Rate 3 12/22/24 14:00 BMI result Body Mass Index 35.2 Const: General: no acute distress Resp: Effort & Inspection: normal respiratory effort Cardio: Rate: regular rate GI: Palpation (GI): Soft to palpation Extrem: Other: Known ulcer on the left foot, plantar aspect and lateral aspect, with osteomyelitis Objective Data Active Medications Albuterol Sulfate (Albuterol Sulfate 90 Mcg 8 Gm Inhaler) 2 puff INHALE Q6H PRN PRN Reason: Wheezing Carvedilol (Carvedilol 12.5 Mg Tablet) 12.5 mg PO BID [facility]; Protocol Last Admin: 01/04/25 20:58 Dose: 12.5 mg Documented By: ELISE Dextrose (Dextrose 50 % 25 Gm/50 Ml Syringe) 25 gm IVPUSH Q15M PRN; Protocol PRN Reason: per Hypoglycemia Standing Ord. Diphenhydramine HCl (Diphenhydramine Hcl 50 Mg/Ml Vial) 12.5 mg IVPUSH Q6H PRN PRN Reason: Itching Last Admin: 01/05/25 09:39 Dose: 12.5 mg Documented By: TRAVIS Glucose (Glucose Gel 15 Gm Gel..Gram.) 15 gm PO Q15M PRN; Protocol PRN Reason: per Hypoglycemia Standing Ord. Heparin Sodium (Porcine) (Heparin Sodium,Porcine 5,000 Unit/Ml Vial) 5,000 unit SUBCUT Q12H [facility] Last Admin: 01/05/25 04:44 Dose: Not Given Documented By: ELISE Non-Admin Reason: Patient Refused Hydralazine HCl (Hydralazine Hcl 50 Mg Tablet) 50 mg PO TID [facility]; Protocol Last Admin: 01/04/25 20:58 Dose: 50 mg Documented By: ELISE Hydralazine HCl (Hydralazine Hcl 20 Mg/Ml Vial) 10 mg IVPUSH Q6H PRN; Protocol PRN Reason: SBP > 160 Last Admin: 12/22/24 20:32 Dose: 10 mg Documented By: KATIE Hydromorphone HCl (Hydromorphone Hcl 1 Mg/Ml Syringe) 1 mg IVPUSH Q6H PRN; Protocol PRN Reason: Pain, Severe (Pain Scale 7-10) Last Admin: 01/05/25 09:44 Dose: 1 mg Documented By: TRAVIS Insulin Human Lispro (Insulin Lispro 100 Unit/Ml 3 Ml Vial) 0 unit SUBCUT [facility]; Protocol Last Admin: 01/05/25 08:59 Dose: Not Given Documented By: TRAVIS Non-Admin Reason: No Insulin Coverage Metoclopramide HCl (Metoclopramide Hcl 10 Mg Tablet) 10 mg PO Q6H PRN PRN Reason: Nausea and Vomiting Ondansetron HCl (Ondansetron Hcl 4 Mg/2 Ml Vial) 4 mg IVPUSH Q6H PRN PRN Reason: Nausea and Vomiting Last Admin: 01/04/25 20:59 Dose: 4 mg Documented By: ELISE Labs 01/05/25 05:22 01/05/25 11:29 Labs: Laboratory Results - last 24 hr 12/30/24 01/04/25 01/05/25 08:27 09:42 05:22 MCV 92.0 92.0 MCH 30.6 30.4 MCHC 33.2 33.1 RDW 13.9 13.9 Plt Count 119 L 99 L MPV 12.1 13.0 H Immature Gran % (Auto) 0.4 1.0 H Neut % (Auto) 62.7 64.3 Lymph % (Auto) 16.3 L 15.8 L [place] % (Auto) 13.7 H 14.0 H Eos % (Auto) 6.1 H 4.3 H Baso % (Auto) 0.8 0.6 Lymph # (Auto) 0.8 L 0.8 L [place] # (Auto) 0.7 0.7 Eos # (Auto) 0.3 0.2 Baso # (Auto) 0.0 0.0 Abs Immat Gran (auto) 0.02 0.05 H Absolute Neuts (auto) 3.1 3.3 Absolute Nucleated RBC 0.000 0.000 Nucleated RBC % (auto) 0.0 0.0 Anion Gap 20 21 H Estim Creat Clear Calc 10.1 8.7 Estimated GFR 5 4 POC Glucose Random Glucose 92 81 Fructosamine 326 H Calcium 9.0 8.4 D Total Bilirubin 0.6 0.5 AST 27 34 H ALT 18 19 Alkaline Phosphatase 139 H 141 H Total Protein 7.5 7.1 Albumin 3.8 3.7 01/05/25 08:33 MCV MCH MCHC RDW Plt Count MPV Immature Gran % (Auto) Neut % (Auto) Lymph % (Auto) [place] % (Auto) Eos % (Auto) Baso % (Auto) Lymph # (Auto) [place] # (Auto) Eos # (Auto) Baso # (Auto) Abs Immat Gran (auto) Absolute Neuts (auto) Absolute Nucleated RBC Nucleated RBC % (auto) Anion Gap Estim Creat Clear Calc Estimated GFR POC Glucose 139 H Random Glucose Fructosamine Calcium Total Bilirubin AST ALT Alkaline Phosphatase Total Protein Albumin Procedures Date of Service Date of Service: 01/05/25 Progress Note: A&P Assessment and plan (1) Chronic osteomyelitis: Status: Acute Assessment and Plan: Has had a long nonhealing ulcer on the lateral aspect of the plantar aspect of the left foot Known osteomyelitis For BKA wants potassium is acceptable She is currently undergoing hemodialysis Lytes to be rechecked after She is currently NPO She understands the technique of BKA left as well as the risks, benefits, and alternatives She understands that her perioperative risks are higher in view of her multiple, we had conditions Time Spent With Patient Time: Total time managing care of this patient today ____ minutes. Quality Stroke Does the patient have a stroke diagnosis?: No VTE Prior VTE?: No VTE Risk Level:: Medical - moderate - high VTE Device Contraindication: Treatment Not Indicated VTE Drug Contraindication: N/A - Med Ordered
[2025-01-05 12:23] LABS: Potassium 4.0 mmol/L (3.3-5.1)
--- NOTE | 2025-01-05 13:08 | PM.EVENT ---
Event Note Date of Service: 01/05/25 Event Note: Potassium post dialysis is 4.0 We will proceed with BKA, left Hospitalist informed The patient understands the technique of the planned procedure She is aware of the risks, benefits, and alternatives She says she wants to proceed Time Spent With Patient Time: Total time managing care of this patient today ____ minutes.
[2025-01-05 13:12] LABS: Glucose, Whole Blood 81 mg/dL (60-115)
--- NOTE | 2025-01-05 13:37 | HO.ANESPROP2 ---
[facility] Active Problems Active Problems: All Active Problems Cardiomyopathy (Acute) Central pontine myelinolysis (Acute) ESRD on hemodialysis (Acute) End-stage renal disease (ESRD) (Acute) Type II diabetes mellitus (Acute) Chronic osteomyelitis (Acute) Hyperkalemia (Acute) Multiple sclerosis exacerbation (Acute) Pneumonia (Acute) Multiple sclerosis (Acute) Encephalitis due to infection (Acute) Bacteremia (Acute) Bacteremia (Acute) CLABSI (central line-associated bloodstream infection) (Acute) COVID-19 (Acute) Back pain (Acute) Hyponatremia (Acute) Past Medical History Medical History Central pontine myelinolysis ESRD on hemodialysis End-stage renal disease (ESRD) Cardiomyopathy Cerebral microvascular disease Steroid-induced hyperglycemia Relapsing remitting multiple sclerosis Renal failure Multiple sclerosis Cerebral infarction Hyperkalemia ESRD on dialysis Hypoxia End stage renal disease on dialysis Chronic ulcer of right foot due to diabetes mellitus Chronic ulcer of left foot due to diabetes mellitus DM foot ulcer Hypotonic neurogenic bladder Diabetic polyneuropathy Hypertensive emergency Decompensated heart failure Renal failure Hypertension, uncontrolled Medical non-compliance Pericarditis Unspecified hypertension, condition or complication Metabolic acidosis Gastroparesis End stage chronic kidney disease Chronic kidney disease Anemia Plantar ulcer of left foot MDD (major depressive disorder) CKD (chronic kidney disease) Hypertension Vomiting Chronic pain Non-compliance with renal dialysis Diabetic foot ulcer associated with type 2 diabetes mellitus HFrEF (heart failure with reduced ejection fraction) delivery delivered Anemia in chronic kidney disease (CKD) CKD (chronic kidney disease) Abnormal finding on echocardiogram Elevated troponin Acute worsening of stage 3 chronic kidney disease Generalized edema Sepsis Cellulitis Pleural effusion Atypical chest pain Bone infection PAD (peripheral artery disease) Cellulitis and abscess of foot Osteomyelitis Asthma Depression with anxiety Diabetic retinopathy Blind right eye Diabetes Back pain Family History Family History Mother Coronary artery disease Myocardial infarction Stroke Diabetes mellitus Father Myocardial infarction Family history of problems with anesthesia: No Surgical History Surgical History Tubal ligation status Previous section Hx laparoscopic cholecystectomy Hx of surgical procedure (~09/11/23) 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 History of Problems with Anesthesia: No Social History Social History Household Members: Family Household Members Other:: sister, brother, [id number] Housing: Apartment Housing Other:: Apartment, 1st floor Are you a primary interior plant caretaker to a significant other at home: No Do you presently have visiting nurse or other home services: Yes Alcohol intake: never Comment: patient refusing bed alarm Patient Tobacco Use Status: Never used Tobacco Smoked in Last 30 Days: No e-Cigarette/Vaping Use: Never Used Second Hand Smoke Exposure: No Use of substances other than those prescribed or required for medical reasons: No Currently Displaying Signs/Symptoms of Drug Intoxication Withdrawal: No Have you been hit, kicked, punched, or otherwise hurt by someone within the past year? If so, by whom?: No Do you feel safe in your current relationship?: Yes Is there a partner from a previous relationship who is making you feel unsafe now?: No Are you made to feel afraid or neglected: No Advance Directives: Yes Advance Directives on File: Yes Advance Directives Date on File: 08/28/23 Do you have a plan to hurt others: No Plan Patient : No service: No Current occupational status: unemployed and disabled Gender identity: Female Meds Allergies Allergy/AdvReac Type Severity Reaction Status Date / Time gabapentin Allergy Severe Facial Verified 12/22/24 08:54 Swelling tramadol Allergy Severe Facial Verified 12/22/24 08:54 Swelling azithromycin (From Zithromax) Allergy Intermediate Hives Verified 12/22/24 08:54 morphine (MORPHINE) Allergy Intermediate Itching Verified 12/22/24 08:54 vancomycin AdvReac Intermediate Itching Verified 12/22/24 10:52 Active Medications: Current Medications Albuterol Sulfate (Albuterol Sulfate 90 Mcg 8 Gm Inhaler) 2 puff INHALE Q6H PRN PRN Reason: Wheezing Carvedilol (Carvedilol 12.5 Mg Tablet) 12.5 mg PO BID [facility]; Protocol Last Admin: 01/05/25 10:32 Dose: 12.5 mg Dextrose (Dextrose 50 % 25 Gm/50 Ml Syringe) 25 gm IVPUSH Q15M PRN; Protocol PRN Reason: per Hypoglycemia Standing Ord. Diphenhydramine HCl (Diphenhydramine Hcl 50 Mg/Ml Vial) 12.5 mg IVPUSH Q6H PRN PRN Reason: Itching Last Admin: 01/05/25 09:39 Dose: 12.5 mg Glucose (Glucose Gel 15 Gm Gel..Gram.) 15 gm PO Q15M PRN; Protocol PRN Reason: per Hypoglycemia Standing Ord. Heparin Sodium (Porcine) (Heparin Sodium,Porcine 5,000 Unit/Ml Vial) 5,000 unit SUBCUT Q12H [facility] Last Admin: 01/05/25 04:44 Dose: Not Given Hydralazine HCl (Hydralazine Hcl 50 Mg Tablet) 50 mg PO TID [facility]; Protocol Last Admin: 01/05/25 10:32 Dose: 50 mg Hydralazine HCl (Hydralazine Hcl 20 Mg/Ml Vial) 10 mg IVPUSH Q6H PRN; Protocol PRN Reason: SBP > 160 Last Admin: 12/22/24 20:32 Dose: 10 mg Hydromorphone HCl (Hydromorphone Hcl 1 Mg/Ml Syringe) 1 mg IVPUSH Q6H PRN; Protocol PRN Reason: Pain, Severe (Pain Scale 7-10) Last Admin: 01/05/25 09:44 Dose: 1 mg Insulin Human Lispro (Insulin Lispro 100 Unit/Ml 3 Ml Vial) 0 unit SUBCUT QIDACHS [facility]; Protocol Last Admin: 01/05/25 11:39 Dose: Not Given Metoclopramide HCl (Metoclopramide Hcl 10 Mg Tablet) 10 mg PO Q6H PRN PRN Reason: Nausea and Vomiting Ondansetron HCl (Ondansetron Hcl 4 Mg/2 Ml Vial) 4 mg IVPUSH Q6H PRN PRN Reason: Nausea and Vomiting Last Admin: 01/04/25 20:59 Dose: 4 mg Home Medications ?Medication ?Instructions ?Recorded ?Confirmed ?Last Taken ?Type albuterol sulfate 90 mcg/actuation 2 puff inhalation Q6H PRN wheezing 01/15/24 12/22/24 12/09/24 History aerosol inhaler (Ventolin HFA) lidocaine 5 % topical patch 1 patch topical DAILY PRN Pain 01/15/24 12/22/24 12/09/24 History nitroglycerin 0.4 mg sublingual 0.4 mg sublingual DIRECTED PRN 01/15/24 12/22/24 12/09/24 History tablet Angina acetaminophen 325 mg tablet 650 mg PO Q4H PRN mild pain 03/11/24 12/22/24 12/09/24 History calcium carbonate (Tums) 200 mg PO TIDWM PRN Acid Reflux 07/03/24 12/22/24 12/09/24 History Exam Exam Date and Time: 01/05/2025 Height,Weight and Vital Signs: Height 5 ft 4 in Weight 93 kg Last Vital Signs Temp 97.5 F 01/05/25 13:11 Pulse 81 01/05/25 13:11 Resp 17 01/05/25 13:11 BP 141/64 H 01/05/25 13:11 Pulse Ox 96 01/05/25 13:11 O2 Del Method Room Air 01/05/25 13:11 O2 Flow Rate 3 12/22/24 14:00 Pertinent Lab Results Pertinent Lab Results: Laboratory Tests 12/22/24 12/23/24 12/23/24 09:22 14:48 16:28 WBC 4.2 L 5.3 RBC 3.07 L 3.37 L Hgb 9.4 L 10.3 L Hct 29.4 L 30.9 L MCV 95.8 91.7 MCH 30.6 30.6 MCHC 32.0 33.3 RDW 14.0 13.9 Plt Count 93 L Not Reportable MPV 12.7 H 12.1 Immature Gran % (Auto) 0.2 1.0 H Neut % (Auto) 70.9 73.0 Lymph % (Auto) 14.5 L 9.5 L [place] % (Auto) 9.0 10.5 Eos % (Auto) 4.7 H 5.2 H Baso % (Auto) 0.7 0.8 Lymph # (Auto) 0.6 L 0.5 L [place] # (Auto) 0.4 0.5 Eos # (Auto) 0.2 0.3 Baso # (Auto) 0.0 0.0 Abs Immat Gran (auto) 0.01 0.05 H Absolute Neuts (auto) 3.0 3.6 Absolute Nucleated RBC 0.000 0.000 Nucleated RBC % (auto) 0.0 0.0 Smear Tech's Comments VERIFIED ESR 47 H Hold Purple Top Sodium 139 139 Potassium 6.0 H* 4.6 D Chloride 104 101 Carbon Dioxide 20 L 26 Anion Gap 21 H 17 BUN 85 H 28 H Creatinine 11.65 H* 5.55 H* Estim Creat Clear Calc 7.3 15.5 Estimated GFR 4 9 POC Glucose Random Glucose 87 143 H Fasting Glucose Estimat Average Glucose Hemoglobin A1c % Fructosamine Lactic Acid 0.8 Calcium 8.2 L 8.7 D Magnesium 2.6 Total Bilirubin 0.9 Direct Bilirubin 0.4 AST 33 H ALT 21 Alkaline Phosphatase 150 H C-Reactive Protein 0.95 H Total Protein 7.7 Albumin 4.0 Hold Red Top See Note Urine Opiates Screen Ur Buprenorphine Scrn Ur Oxycodone Screen Urine Methadone Screen Urine Fentanyl Screen Ur Barbiturates Screen Ur Phencyclidine Scrn Ur Amphetamines Screen U Benzodiazepines Scrn Urine Cocaine Screen U Marijuana (THC) Screen 12/24/24 12/25/24 12/28/24 09:48 22:54 11:38 WBC 3.3 L RBC 3.04 L Hgb 9.3 L Hct 28.7 L MCV 94.4 MCH 30.6 MCHC 32.4 RDW 14.0 Plt Count 75 L MPV 13.3 H Immature Gran % (Auto) 0.3 Neut % (Auto) 62.4 Lymph % (Auto) 16.5 L [place] % (Auto) 13.8 H Eos % (Auto) 5.8 H Baso % (Auto) 1.2 Lymph # (Auto) 0.5 L [place] # (Auto) 0.5 Eos # (Auto) 0.2 Baso # (Auto) 0.0 Abs Immat Gran (auto) 0.01 Absolute Neuts (auto) 2.0 Absolute Nucleated RBC 0.000 Nucleated RBC % (auto) 0.0 Smear Tech's Comments ESR Hold Purple Top Sodium 136 Potassium 5.0 Chloride 103 Carbon Dioxide 23 Anion Gap 15 BUN 40 H Creatinine 7.56 H* Estim Creat Clear Calc 11.3 Estimated GFR 6 POC Glucose 122 H 114 Random Glucose 162 H Fasting Glucose Estimat Average Glucose Hemoglobin A1c % Fructosamine Lactic Acid Calcium 8.4 Magnesium Total Bilirubin Direct Bilirubin AST ALT Alkaline Phosphatase C-Reactive Protein Total Protein Albumin Hold Red Top Urine Opiates Screen Ur Buprenorphine Scrn Ur Oxycodone Screen Urine Methadone Screen Urine Fentanyl Screen Ur Barbiturates Screen Ur Phencyclidine Scrn Ur Amphetamines Screen U Benzodiazepines Scrn Urine Cocaine Screen U Marijuana (THC) Screen 12/28/24 12/29/24 12/29/24 22:56 07:38 10:50 WBC 4.9 RBC 3.06 L Hgb 9.5 L Hct 28.2 L MCV 92.2 MCH 31.0 MCHC 33.7 RDW 14.0 Plt Count 118 L D MPV 12.5 H Immature Gran % (Auto) Neut % (Auto) Lymph % (Auto) [place] % (Auto) Eos % (Auto) Baso % (Auto) Lymph # (Auto) [place] # (Auto) Eos # (Auto) Baso # (Auto) Abs Immat Gran (auto) Absolute Neuts (auto) Absolute Nucleated RBC 0.000 Nucleated RBC % (auto) 0.0 Smear Tech's Comments ESR Hold Purple Top Sodium 134 L Potassium Chloride Carbon Dioxide Anion Gap BUN Creatinine Estim Creat Clear Calc Estimated GFR POC Glucose 111 83 Random Glucose Fasting Glucose Estimat Average Glucose Hemoglobin A1c % Fructosamine Lactic Acid Calcium Magnesium Total Bilirubin Direct Bilirubin AST ALT Alkaline Phosphatase C-Reactive Protein Total Protein Albumin Hold Red Top Urine Opiates Screen Ur Buprenorphine Scrn Ur Oxycodone Screen Urine Methadone Screen Urine Fentanyl Screen Ur Barbiturates Screen Ur Phencyclidine Scrn Ur Amphetamines Screen U Benzodiazepines Scrn Urine Cocaine Screen U Marijuana (THC) Screen 12/29/24 12/29/24 12/29/24 10:50 10:50 10:50 WBC RBC Hgb Hct MCV MCH MCHC RDW Plt Count MPV Immature Gran % (Auto) Neut % (Auto) Lymph % (Auto) [place] % (Auto) Eos % (Auto) Baso % (Auto) Lymph # (Auto) [place] # (Auto) Eos # (Auto) Baso # (Auto) Abs Immat Gran (auto) Absolute Neuts (auto) Absolute Nucleated RBC Nucleated RBC % (auto) Smear Tech's Comments ESR Hold Purple Top Sodium Cancelled Potassium 5.9 H Cancelled Chloride 101 Cancelled Carbon Dioxide 22 Anion Gap BUN Creatinine Estim Creat Clear Calc Estimated GFR POC Glucose Random Glucose Fasting Glucose Estimat Average Glucose Hemoglobin A1c % Fructosamine Lactic Acid Calcium Magnesium Total Bilirubin Direct Bilirubin AST ALT Alkaline Phosphatase C-Reactive Protein Total Protein Albumin Hold Red Top Urine Opiates Screen Ur Buprenorphine Scrn Ur Oxycodone Screen Urine Methadone Screen Urine Fentanyl Screen Ur Barbiturates Screen Ur Phencyclidine Scrn Ur Amphetamines Screen U Benzodiazepines Scrn Urine Cocaine Screen U Marijuana (THC) Screen 12/29/24 12/29/24 12/29/24 10:50 10:50 10:50 WBC RBC Hgb Hct MCV MCH MCHC RDW Plt Count MPV Immature Gran % (Auto) Neut % (Auto) Lymph % (Auto) [place] % (Auto) Eos % (Auto) Baso % (Auto) Lymph # (Auto) [place] # (Auto) Eos # (Auto) Baso # (Auto) Abs Immat Gran (auto) Absolute Neuts (auto) Absolute Nucleated RBC Nucleated RBC % (auto) Smear Tech's Comments ESR Hold Purple Top Sodium Potassium Chloride Carbon Dioxide Cancelled Anion Gap 17 Cancelled BUN 57 H Cancelled Creatinine 8.92 H* Estim Creat Clear Calc Estimated GFR POC Glucose Random Glucose Fasting Glucose Estimat Average Glucose Hemoglobin A1c % Fructosamine Lactic Acid Calcium Magnesium Total Bilirubin Direct Bilirubin AST ALT Alkaline Phosphatase C-Reactive Protein Total Protein Albumin Hold Red Top Urine Opiates Screen Ur Buprenorphine Scrn Ur Oxycodone Screen Urine Methadone Screen Urine Fentanyl Screen Ur Barbiturates Screen Ur Phencyclidine Scrn Ur Amphetamines Screen U Benzodiazepines Scrn Urine Cocaine Screen U Marijuana (THC) Screen 12/29/24 12/29/24 12/29/24 10:50 10:50 10:50 WBC RBC Hgb Hct MCV MCH MCHC RDW Plt Count MPV Immature Gran % (Auto) Neut % (Auto) Lymph % (Auto) [place] % (Auto) Eos % (Auto) Baso % (Auto) Lymph # (Auto) [place] # (Auto) Eos # (Auto) Baso # (Auto) Abs Immat Gran (auto) Absolute Neuts (auto) Absolute Nucleated RBC Nucleated RBC % (auto) Smear Tech's Comments ESR Hold Purple Top Sodium Potassium Chloride Carbon Dioxide Anion Gap BUN Creatinine Cancelled Estim Creat Clear Calc 9.6 Cancelled Estimated GFR 5 Cancelled POC Glucose Random Glucose 95 Fasting Glucose Estimat Average Glucose Hemoglobin A1c % Fructosamine Lactic Acid Calcium Magnesium Total Bilirubin Direct Bilirubin AST ALT Alkaline Phosphatase C-Reactive Protein Total Protein Albumin Hold Red Top Urine Opiates Screen Ur Buprenorphine Scrn Ur Oxycodone Screen Urine Methadone Screen Urine Fentanyl Screen Ur Barbiturates Screen Ur Phencyclidine Scrn Ur Amphetamines Screen U Benzodiazepines Scrn Urine Cocaine Screen U Marijuana (THC) Screen 12/29/24 12/29/24 12/29/24 10:50 10:50 11:26 WBC RBC Hgb Hct MCV MCH MCHC RDW Plt Count MPV Immature Gran % (Auto) Neut % (Auto) Lymph % (Auto) [place] % (Auto) Eos % (Auto) Baso % (Auto) Lymph # (Auto) [place] # (Auto) Eos # (Auto) Baso # (Auto) Abs Immat Gran (auto) Absolute Neuts (auto) Absolute Nucleated RBC Nucleated RBC % (auto) Smear Tech's Comments ESR Hold Purple Top Sodium Potassium Chloride Carbon Dioxide Anion Gap BUN Creatinine Estim Creat Clear Calc Estimated GFR POC Glucose 99 Random Glucose Cancelled Fasting Glucose Estimat Average Glucose 117 Hemoglobin A1c % 5.7 Fructosamine Lactic Acid Calcium 8.9 Cancelled Magnesium Total Bilirubin Direct Bilirubin AST ALT Alkaline Phosphatase C-Reactive Protein Total Protein Albumin Hold Red Top Urine Opiates Screen Ur Buprenorphine Scrn Ur Oxycodone Screen Urine Methadone Screen Urine Fentanyl Screen Ur Barbiturates Screen Ur Phencyclidine Scrn Ur Amphetamines Screen U Benzodiazepines Scrn Urine Cocaine Screen U Marijuana (THC) Screen 12/29/24 12/30/24 12/30/24 16:04 08:27 08:28 WBC RBC Hgb Hct MCV MCH MCHC RDW Plt Count MPV Immature Gran % (Auto) Neut % (Auto) Lymph % (Auto) [place] % (Auto) Eos % (Auto) Baso % (Auto) Lymph # (Auto) [place] # (Auto) Eos # (Auto) Baso # (Auto) Abs Immat Gran (auto) Absolute Neuts (auto) Absolute Nucleated RBC Nucleated RBC % (auto) Smear Tech's Comments ESR Hold Purple Top SEE NOTE Sodium Potassium Chloride Carbon Dioxide Anion Gap BUN Creatinine Estim Creat Clear Calc Estimated GFR POC Glucose 85 Random Glucose Fasting Glucose Estimat Average Glucose Hemoglobin A1c % Fructosamine 326 H Lactic Acid Calcium Magnesium Total Bilirubin Direct Bilirubin AST ALT Alkaline Phosphatase C-Reactive Protein Total Protein Albumin Hold Red Top Urine Opiates Screen Ur Buprenorphine Scrn Ur Oxycodone Screen Urine Methadone Screen Urine Fentanyl Screen Ur Barbiturates Screen Ur Phencyclidine Scrn Ur Amphetamines Screen U Benzodiazepines Scrn Urine Cocaine Screen U Marijuana (THC) Screen 12/30/24 12/31/24 12/31/24 11:22 06:16 06:16 WBC Cancelled 4.4 L RBC Cancelled Hgb Hct MCV MCH MCHC RDW Plt Count MPV Immature Gran % (Auto) Neut % (Auto) Lymph % (Auto) [place] % (Auto) Eos % (Auto) Baso % (Auto) Lymph # (Auto) [place] # (Auto) Eos # (Auto) Baso # (Auto) Abs Immat Gran (auto) Absolute Neuts (auto) Absolute Nucleated RBC Nucleated RBC % (auto) Smear Tech's Comments ESR Hold Purple Top Sodium Potassium Chloride Carbon Dioxide Anion Gap BUN Creatinine Estim Creat Clear Calc Estimated GFR POC Glucose Random Glucose Fasting Glucose Estimat Average Glucose Hemoglobin A1c % Fructosamine Lactic Acid Calcium Magnesium Total Bilirubin Direct Bilirubin AST ALT Alkaline Phosphatase C-Reactive Protein Total Protein Albumin Hold Red Top Urine Opiates Screen POSITIVE H Ur Buprenorphine Scrn Not Detected Ur Oxycodone Screen Not Detected Urine Methadone Screen Not Detected Urine Fentanyl Screen Not Detected Ur Barbiturates Screen Not Detected Ur Phencyclidine Scrn Not Detected Ur Amphetamines Screen Not Detected U Benzodiazepines Scrn Not Detected Urine Cocaine Screen Not Detected U Marijuana (THC) Screen Not Detected 12/31/24 12/31/24 12/31/24 06:16 06:16 06:16 WBC RBC 2.87 L Hgb Cancelled 8.8 L Hct Cancelled 26.9 L MCV Cancelled MCH MCHC RDW Plt Count MPV Immature Gran % (Auto) Neut % (Auto) Lymph % (Auto) [place] % (Auto) Eos % (Auto) Baso % (Auto) Lymph # (Auto) [place] # (Auto) Eos # (Auto) Baso # (Auto) Abs Immat Gran (auto) Absolute Neuts (auto) Absolute Nucleated RBC Nucleated RBC % (auto) Smear Tech's Comments ESR Hold Purple Top Sodium Potassium Chloride Carbon Dioxide Anion Gap BUN Creatinine Estim Creat Clear Calc Estimated GFR POC Glucose Random Glucose Fasting Glucose Estimat Average Glucose Hemoglobin A1c % Fructosamine Lactic Acid Calcium Magnesium Total Bilirubin Direct Bilirubin AST ALT Alkaline Phosphatase C-Reactive Protein Total Protein Albumin Hold Red Top Urine Opiates Screen Ur Buprenorphine Scrn Ur Oxycodone Screen Urine Methadone Screen Urine Fentanyl Screen Ur Barbiturates Screen Ur Phencyclidine Scrn Ur Amphetamines Screen U Benzodiazepines Scrn Urine Cocaine Screen U Marijuana (THC) Screen 12/31/24 12/31/24 12/31/24 06:16 06:16 06:16 WBC RBC Hgb Hct MCV 93.7 MCH Cancelled 30.7 MCHC Cancelled 32.7 RDW Cancelled Plt Count MPV Immature Gran % (Auto) Neut % (Auto) Lymph % (Auto) [place] % (Auto) Eos % (Auto) Baso % (Auto) Lymph # (Auto) [place] # (Auto) Eos # (Auto) Baso # (Auto) Abs Immat Gran (auto) Absolute Neuts (auto) Absolute Nucleated RBC Nucleated RBC % (auto) Smear Tech's Comments ESR Hold Purple Top Sodium Potassium Chloride Carbon Dioxide Anion Gap BUN Creatinine Estim Creat Clear Calc Estimated GFR POC Glucose Random Glucose Fasting Glucose Estimat Average Glucose Hemoglobin A1c % Fructosamine Lactic Acid Calcium Magnesium Total Bilirubin Direct Bilirubin AST ALT Alkaline Phosphatase C-Reactive Protein Total Protein Albumin Hold Red Top Urine Opiates Screen Ur Buprenorphine Scrn Ur Oxycodone Screen Urine Methadone Screen Urine Fentanyl Screen Ur Barbiturates Screen Ur Phencyclidine Scrn Ur Amphetamines Screen U Benzodiazepines Scrn Urine Cocaine Screen U Marijuana (THC) Screen 12/31/24 12/31/24 12/31/24 06:16 06:16 06:16 WBC RBC Hgb Hct MCV MCH MCHC RDW 14.2 Plt Count Cancelled 96 L MPV Cancelled 13.1 H Immature Gran % (Auto) 0.2 Neut % (Auto) 63.8 Lymph % (Auto) 15.6 L [place] % (Auto) 15.8 H Eos % (Auto) 4.1 H Baso % (Auto) 0.5 Lymph # (Auto) 0.7 L [place] # (Auto) 0.7 Eos # (Auto) 0.2 Baso # (Auto) 0.0 Abs Immat Gran (auto) 0.01 Absolute Neuts (auto) 2.8 Absolute Nucleated RBC Cancelled Nucleated RBC % (auto) Smear Tech's Comments ESR Hold Purple Top Sodium Potassium Chloride Carbon Dioxide Anion Gap BUN Creatinine Estim Creat Clear Calc Estimated GFR POC Glucose Random Glucose Fasting Glucose Estimat Average Glucose Hemoglobin A1c % Fructosamine Lactic Acid Calcium Magnesium Total Bilirubin Direct Bilirubin AST ALT Alkaline Phosphatase C-Reactive Protein Total Protein Albumin Hold Red Top Urine Opiates Screen Ur Buprenorphine Scrn Ur Oxycodone Screen Urine Methadone Screen Urine Fentanyl Screen Ur Barbiturates Screen Ur Phencyclidine Scrn Ur Amphetamines Screen U Benzodiazepines Scrn Urine Cocaine Screen U Marijuana (THC) Screen 12/31/24 12/31/24 12/31/24 06:16 06:16 06:16 WBC RBC Hgb Hct MCV MCH MCHC RDW Plt Count MPV Immature Gran % (Auto) Neut % (Auto) Lymph % (Auto) [place] % (Auto) Eos % (Auto) Baso % (Auto) Lymph # (Auto) [place] # (Auto) Eos # (Auto) Baso # (Auto) Abs Immat Gran (auto) Absolute Neuts (auto) Absolute Nucleated RBC 0.000 Nucleated RBC % (auto) Cancelled 0.0 Smear Tech's Comments VERIFIED ESR Hold Purple Top Sodium Cancelled 137 Potassium Cancelled Chloride Carbon Dioxide Anion Gap BUN Creatinine Estim Creat Clear Calc Estimated GFR POC Glucose Random Glucose Fasting Glucose Estimat Average Glucose Hemoglobin A1c % Fructosamine Lactic Acid Calcium Magnesium Total Bilirubin Direct Bilirubin AST ALT Alkaline Phosphatase C-Reactive Protein Total Protein Albumin Hold Red Top Urine Opiates Screen Ur Buprenorphine Scrn Ur Oxycodone Screen Urine Methadone Screen Urine Fentanyl Screen Ur Barbiturates Screen Ur Phencyclidine Scrn Ur Amphetamines Screen U Benzodiazepines Scrn Urine Cocaine Screen U Marijuana (THC) Screen 12/31/24 12/31/24 12/31/24 06:16 06:16 06:16 WBC RBC Hgb Hct MCV MCH MCHC RDW Plt Count MPV Immature Gran % (Auto) Neut % (Auto) Lymph % (Auto) [place] % (Auto) Eos % (Auto) Baso % (Auto) Lymph # (Auto) [place] # (Auto) Eos # (Auto) Baso # (Auto) Abs Immat Gran (auto) Absolute Neuts (auto) Absolute Nucleated RBC Nucleated RBC % (auto) Smear Tech's Comments ESR Hold Purple Top Sodium Potassium 6.1 H* Chloride Cancelled 102 Carbon Dioxide Cancelled 23 Anion Gap Cancelled BUN Creatinine Estim Creat Clear Calc Estimated GFR POC Glucose Random Glucose Fasting Glucose Estimat Average Glucose Hemoglobin A1c % Fructosamine Lactic Acid Calcium Magnesium Total Bilirubin Direct Bilirubin AST ALT Alkaline Phosphatase C-Reactive Protein Total Protein Albumin Hold Red Top Urine Opiates Screen Ur Buprenorphine Scrn Ur Oxycodone Screen Urine Methadone Screen Urine Fentanyl Screen Ur Barbiturates Screen Ur Phencyclidine Scrn Ur Amphetamines Screen U Benzodiazepines Scrn Urine Cocaine Screen U Marijuana (THC) Screen 12/31/24 12/31/24 12/31/24 06:16 06:16 06:16 WBC RBC Hgb Hct MCV MCH MCHC RDW Plt Count MPV Immature Gran % (Auto) Neut % (Auto) Lymph % (Auto) [place] % (Auto) Eos % (Auto) Baso % (Auto) Lymph # (Auto) [place] # (Auto) Eos # (Auto) Baso # (Auto) Abs Immat Gran (auto) Absolute Neuts (auto) Absolute Nucleated RBC Nucleated RBC % (auto) Smear Tech's Comments ESR Hold Purple Top Sodium Potassium Chloride Carbon Dioxide Anion Gap 18 BUN Cancelled 70 H Creatinine Cancelled 9.12 H* Estim Creat Clear Calc Cancelled Estimated GFR POC Glucose Random Glucose Fasting Glucose Estimat Average Glucose Hemoglobin A1c % Fructosamine Lactic Acid Calcium Magnesium Total Bilirubin Direct Bilirubin AST ALT Alkaline Phosphatase C-Reactive Protein Total Protein Albumin Hold Red Top Urine Opiates Screen Ur Buprenorphine Scrn Ur Oxycodone Screen Urine Methadone Screen Urine Fentanyl Screen Ur Barbiturates Screen Ur Phencyclidine Scrn Ur Amphetamines Screen U Benzodiazepines Scrn Urine Cocaine Screen U Marijuana (THC) Screen 12/31/24 12/31/24 12/31/24 06:16 06:16 06:16 WBC RBC Hgb Hct MCV MCH MCHC RDW Plt Count MPV Immature Gran % (Auto) Neut % (Auto) Lymph % (Auto) [place] % (Auto) Eos % (Auto) Baso % (Auto) Lymph # (Auto) [place] # (Auto) Eos # (Auto) Baso # (Auto) Abs Immat Gran (auto) Absolute Neuts (auto) Absolute Nucleated RBC Nucleated RBC % (auto) Smear Tech's Comments ESR Hold Purple Top Sodium Potassium Chloride Carbon Dioxide Anion Gap BUN Creatinine Estim Creat Clear Calc 9.4 Estimated GFR Cancelled 5 POC Glucose Random Glucose Cancelled 100 Fasting Glucose Estimat Average Glucose Hemoglobin A1c % Fructosamine Lactic Acid Calcium Cancelled Magnesium Total Bilirubin Direct Bilirubin AST ALT Alkaline Phosphatase C-Reactive Protein Total Protein Albumin Hold Red Top Urine Opiates Screen Ur Buprenorphine Scrn Ur Oxycodone Screen Urine Methadone Screen Urine Fentanyl Screen Ur Barbiturates Screen Ur Phencyclidine Scrn Ur Amphetamines Screen U Benzodiazepines Scrn Urine Cocaine Screen U Marijuana (THC) Screen 12/31/24 12/31/24 12/31/24 06:16 07:38 08:40 WBC RBC Hgb Hct MCV MCH MCHC RDW Plt Count MPV Immature Gran % (Auto) Neut % (Auto) Lymph % (Auto) [place] % (Auto) Eos % (Auto) Baso % (Auto) Lymph # (Auto) [place] # (Auto) Eos # (Auto) Baso # (Auto) Abs Immat Gran (auto) Absolute Neuts (auto) Absolute Nucleated RBC Nucleated RBC % (auto) Smear Tech's Comments ESR Hold Purple Top Sodium Potassium Chloride Carbon Dioxide Anion Gap BUN Creatinine Estim Creat Clear Calc Estimated GFR POC Glucose 104 Random Glucose Fasting Glucose 122 H Estimat Average Glucose Hemoglobin A1c % Fructosamine Lactic Acid Calcium 8.0 L D Magnesium Total Bilirubin 0.7 Direct Bilirubin AST 30 ALT 22 Alkaline Phosphatase 149 H C-Reactive Protein Total Protein 7.2 Albumin 3.7 Hold Red Top Urine Opiates Screen Ur Buprenorphine Scrn Ur Oxycodone Screen Urine Methadone Screen Urine Fentanyl Screen Ur Barbiturates Screen Ur Phencyclidine Scrn Ur Amphetamines Screen U Benzodiazepines Scrn Urine Cocaine Screen U Marijuana (THC) Screen 12/31/24 12/31/24 01/01/25 08:46 15:45 07:50 WBC RBC Hgb Hct MCV MCH MCHC RDW Plt Count MPV Immature Gran % (Auto) Neut % (Auto) Lymph % (Auto) [place] % (Auto) Eos % (Auto) Baso % (Auto) Lymph # (Auto) [place] # (Auto) Eos # (Auto) Baso # (Auto) Abs Immat Gran (auto) Absolute Neuts (auto) Absolute Nucleated RBC Nucleated RBC % (auto) Smear Tech's Comments ESR Hold Purple Top Sodium Potassium Chloride Carbon Dioxide Anion Gap BUN Creatinine Estim Creat Clear Calc Estimated GFR POC Glucose 127 H 167 H 107 Random Glucose Fasting Glucose Estimat Average Glucose Hemoglobin A1c % Fructosamine Lactic Acid Calcium Magnesium Total Bilirubin Direct Bilirubin AST ALT Alkaline Phosphatase C-Reactive Protein Total Protein Albumin Hold Red Top Urine Opiates Screen Ur Buprenorphine Scrn Ur Oxycodone Screen Urine Methadone Screen Urine Fentanyl Screen Ur Barbiturates Screen Ur Phencyclidine Scrn Ur Amphetamines Screen U Benzodiazepines Scrn Urine Cocaine Screen U Marijuana (THC) Screen 01/01/25 01/01/25 01/02/25 11:50 15:44 05:59 WBC 4.0 L 4.1 L RBC 3.24 L 3.03 L Hgb 9.8 L 9.3 L Hct 30.1 L 28.9 L MCV 92.9 95.4 MCH 30.2 30.7 MCHC 32.6 32.2 RDW 14.1 14.1 Plt Count 112 L 100 L MPV 12.2 12.7 H Immature Gran % (Auto) 0.2 0.5 H Neut % (Auto) 62.3 59.3 Lymph % (Auto) 15.4 L 18.0 L [place] % (Auto) 16.4 H 16.3 H Eos % (Auto) 4.7 H 5.4 H Baso % (Auto) 1.0 0.5 Lymph # (Auto) 0.6 L 0.7 L [place] # (Auto) 0.7 0.7 Eos # (Auto) 0.2 0.2 Baso # (Auto) 0.0 0.0 Abs Immat Gran (auto) 0.01 0.02 Absolute Neuts (auto) 2.5 2.4 Absolute Nucleated RBC 0.000 0.000 Nucleated RBC % (auto) 0.0 0.0 Smear Tech's Comments VERIFIED ESR Hold Purple Top Sodium 137 135 Potassium 5.3 H 6.6 H* D Chloride 101 102 Carbon Dioxide 25 23 Anion Gap 16 17 BUN 45 H 54 H Creatinine 6.96 H* 7.97 H* Estim Creat Clear Calc 12.3 10.7 Estimated GFR 7 6 POC Glucose 78 Random Glucose 204 H 91 Fasting Glucose Estimat Average Glucose Hemoglobin A1c % Fructosamine Lactic Acid Calcium 8.9 D 8.6 Magnesium Total Bilirubin 0.6 0.6 Direct Bilirubin AST 31 28 ALT 21 19 Alkaline Phosphatase 134 H 131 H C-Reactive Protein Total Protein 7.4 7.1 Albumin 3.9 3.6 Hold Red Top Urine Opiates Screen Ur Buprenorphine Scrn Ur Oxycodone Screen Urine Methadone Screen Urine Fentanyl Screen Ur Barbiturates Screen Ur Phencyclidine Scrn Ur Amphetamines Screen U Benzodiazepines Scrn Urine Cocaine Screen U Marijuana (THC) Screen 01/02/25 01/02/25 01/03/25 07:37 11:28 09:04 WBC RBC Hgb Hct MCV MCH MCHC RDW Plt Count MPV Immature Gran % (Auto) Neut % (Auto) Lymph % (Auto) [place] % (Auto) Eos % (Auto) Baso % (Auto) Lymph # (Auto) [place] # (Auto) Eos # (Auto) Baso # (Auto) Abs Immat Gran (auto) Absolute Neuts (auto) Absolute Nucleated RBC Nucleated RBC % (auto) Smear Tech's Comments ESR Hold Purple Top Sodium 136 Potassium 5.3 H Chloride 100 Carbon Dioxide 23 Anion Gap 18 BUN 36 H Creatinine 6.50 H* Estim Creat Clear Calc 13.2 Estimated GFR 7 POC Glucose 88 94 Random Glucose 85 Fasting Glucose Estimat Average Glucose Hemoglobin A1c % Fructosamine Lactic Acid Calcium 9.5 D Magnesium Total Bilirubin 0.7 Direct Bilirubin AST 35 H ALT 24 Alkaline Phosphatase 158 H C-Reactive Protein Total Protein 8.1 H Albumin 4.2 Hold Red Top Urine Opiates Screen Ur Buprenorphine Scrn Ur Oxycodone Screen Urine Methadone Screen Urine Fentanyl Screen Ur Barbiturates Screen Ur Phencyclidine Scrn Ur Amphetamines Screen U Benzodiazepines Scrn Urine Cocaine Screen U Marijuana (THC) Screen 01/03/25 01/04/25 01/04/25 09:55 07:05 09:42 WBC 4.9 4.9 RBC 3.56 L 3.37 L Hgb 10.8 L 10.3 L Hct 33.0 L 31.0 L MCV 92.7 92.0 MCH 30.3 30.6 MCHC 32.7 33.2 RDW 14.0 13.9 Plt Count 125 L 119 L MPV 12.3 12.1 Immature Gran % (Auto) 0.4 0.4 Neut % (Auto) 61.9 62.7 Lymph % (Auto) 14.7 L 16.3 L [place] % (Auto) 17.1 H 13.7 H Eos % (Auto) 5.3 H 6.1 H Baso % (Auto) 0.6 0.8 Lymph # (Auto) 0.7 L 0.8 L [place] # (Auto) 0.8 0.7 Eos # (Auto) 0.3 0.3 Baso # (Auto) 0.0 0.0 Abs Immat Gran (auto) 0.02 0.02 Absolute Neuts (auto) 3.0 3.1 Absolute Nucleated RBC 0.000 0.000 Nucleated RBC % (auto) 0.0 0.0 Smear Tech's Comments ESR Hold Purple Top Sodium 135 Potassium 6.0 H* Chloride 100 Carbon Dioxide 21 L Anion Gap 20 BUN 53 H Creatinine 8.45 H* Estim Creat Clear Calc 10.1 Estimated GFR 5 POC Glucose 86 Random Glucose 92 Fasting Glucose Estimat Average Glucose Hemoglobin A1c % Fructosamine Lactic Acid Calcium 9.0 Magnesium Total Bilirubin 0.6 Direct Bilirubin AST 27 ALT 18 Alkaline Phosphatase 139 H C-Reactive Protein Total Protein 7.5 Albumin 3.8 Hold Red Top Urine Opiates Screen Ur Buprenorphine Scrn Ur Oxycodone Screen Urine Methadone Screen Urine Fentanyl Screen Ur Barbiturates Screen Ur Phencyclidine Scrn Ur Amphetamines Screen U Benzodiazepines Scrn Urine Cocaine Screen U Marijuana (THC) Screen 01/05/25 01/05/25 01/05/25 05:22 08:33 11:29 WBC 5.1 RBC 3.12 L Hgb 9.5 L Hct 28.7 L MCV 92.0 MCH 30.4 MCHC 33.1 RDW 13.9 Plt Count 99 L MPV 13.0 H Immature Gran % (Auto) 1.0 H Neut % (Auto) 64.3 Lymph % (Auto) 15.8 L [place] % (Auto) 14.0 H Eos % (Auto) 4.3 H Baso % (Auto) 0.6 Lymph # (Auto) 0.8 L [place] # (Auto) 0.7 Eos # (Auto) 0.2 Baso # (Auto) 0.0 Abs Immat Gran (auto) 0.05 H Absolute Neuts (auto) 3.3 Absolute Nucleated RBC 0.000 Nucleated RBC % (auto) 0.0 Smear Tech's Comments ESR Hold Purple Top Sodium 136 Potassium 6.1 H* 4.0 D Chloride 104 Carbon Dioxide 17 L Anion Gap 21 H BUN 65 H Creatinine 9.83 H* Estim Creat Clear Calc 8.7 Estimated GFR 4 POC Glucose 139 H Random Glucose 81 Fasting Glucose Estimat Average Glucose Hemoglobin A1c % Fructosamine Lactic Acid Calcium 8.4 D Magnesium Total Bilirubin 0.5 Direct Bilirubin AST 34 H ALT 19 Alkaline Phosphatase 141 H C-Reactive Protein Total Protein 7.1 Albumin 3.7 Hold Red Top Urine Opiates Screen Ur Buprenorphine Scrn Ur Oxycodone Screen Urine Methadone Screen Urine Fentanyl Screen Ur Barbiturates Screen Ur Phencyclidine Scrn Ur Amphetamines Screen U Benzodiazepines Scrn Urine Cocaine Screen U Marijuana (THC) Screen 01/05/25 13:06 WBC RBC Hgb Hct MCV MCH MCHC RDW Plt Count MPV Immature Gran % (Auto) Neut % (Auto) Lymph % (Auto) [place] % (Auto) Eos % (Auto) Baso % (Auto) Lymph # (Auto) [place] # (Auto) Eos # (Auto) Baso # (Auto) Abs Immat Gran (auto) Absolute Neuts (auto) Absolute Nucleated RBC Nucleated RBC % (auto) Smear Tech's Comments ESR Hold Purple Top Sodium Potassium Chloride Carbon Dioxide Anion Gap BUN Creatinine Estim Creat Clear Calc Estimated GFR POC Glucose 81 Random Glucose Fasting Glucose Estimat Average Glucose Hemoglobin A1c % Fructosamine Lactic Acid Calcium Magnesium Total Bilirubin Direct Bilirubin AST ALT Alkaline Phosphatase C-Reactive Protein Total Protein Albumin Hold Red Top Urine Opiates Screen Ur Buprenorphine Scrn Ur Oxycodone Screen Urine Methadone Screen Urine Fentanyl Screen Ur Barbiturates Screen Ur Phencyclidine Scrn Ur Amphetamines Screen U Benzodiazepines Scrn Urine Cocaine Screen U Marijuana (THC) Screen Airway Mallampati Class: II TM Dist: >3cm Neck ROM: Full Heart: rrr Lungs: ctab vesicular Assessment and Plan Assessment Anesthesia Assessment: Anesthesia Plan Discussed and Chart Reviewed Final Anesthetic Review Family History of Problems with Anesthesia: No History of Problems with Anesthesia: No NPO: Yes ASA Class: III Final Preanesthetic Review: No Changes in Pt Med Stat, Meds/Allgs Chart Reviewed, Consent Obtained/Reviewed and Anes Risks/Benef Reviewed Patient Risk: Intermediate Procedure Risk: Intermediate Anesthetic Plan Anesthetic Plan: GA and Regional Block Disposition: Standard PACU
--- NOTE | 2025-01-05 14:21 | MHC.CM.PN ---
EMR REVIEWED AND PER MD ROUNDS, PT IS NOT YET MEDICALLY CLEARED FOR DC. PT WILL UNDERGO BKA TODAY. CM WILL CONTINUE TO FOLLOW FOR DC PLAN, HOME WITH SERVICES VS REHAB.
--- NOTE | 2025-01-05 14:25 | HO.PM.IMPN ---
Subjective Subjective Date of Service: 01/05/25 Interval History: Patient seen examined at bedside this morning, patient states that she is feeling okay, awaiting surgery today after dialysis. No concerns voiced by the nursing staff. Review of Systems Review of Systems: Yes all other systems are reviewed and are negative Physical Exam Exam: Exam: General: AxOx3, No acute distress, Head: AT/NC ENT: Moist mucous membranes, right eye blindness Neck: supple CVS; RRR, S1 S2 normal Lungs: Clear bilateral breath sounds, no wheezes or crackles Abd: Soft non tender, non distended Ext: No edema and no calf tenderness MSK: moving all 4 limbs Skin: Bilateral lower extremity wounds with dressings in place, C/D/I Psych: Cooperative with exam Neurology: no focal deficit Vital Signs: Vital Signs: Last Vital Signs Temp 97.5 F 01/05/25 13:11 Pulse 81 01/05/25 13:11 Resp 17 01/05/25 13:11 BP 141/64 H 01/05/25 13:11 Pulse Ox 96 01/05/25 13:11 O2 Del Method Room Air 01/05/25 13:11 O2 Flow Rate 3 12/22/24 14:00 BMI result Body Mass Index 35.2 Objective Data Active Medications Albuterol Sulfate (Albuterol Sulfate 90 Mcg 8 Gm Inhaler) 2 puff INHALE Q6H PRN PRN Reason: Wheezing Carvedilol (Carvedilol 12.5 Mg Tablet) 12.5 mg PO BID VASILE; Protocol Last Admin: 01/05/25 10:32 Dose: 12.5 mg Documented By: TRAVIS Dextrose (Dextrose 50 % 25 Gm/50 Ml Syringe) 25 gm IVPUSH Q15M PRN; Protocol PRN Reason: per Hypoglycemia Standing Ord. Diphenhydramine HCl (Diphenhydramine Hcl 50 Mg/Ml Vial) 12.5 mg IVPUSH Q6H PRN PRN Reason: Itching Last Admin: 01/05/25 09:39 Dose: 12.5 mg Documented By: TRAVIS Glucose (Glucose Gel 15 Gm Gel..Gram.) 15 gm PO Q15M PRN; Protocol PRN Reason: per Hypoglycemia Standing Ord. Heparin Sodium (Porcine) (Heparin Sodium,Porcine 5,000 Unit/Ml Vial) 5,000 unit SUBCUT Q12H VASILE Last Admin: 01/05/25 04:44 Dose: Not Given Documented By: ELISE Non-Admin Reason: Patient Refused Hydralazine HCl (Hydralazine Hcl 50 Mg Tablet) 50 mg PO TID [facility]; Protocol Last Admin: 01/05/25 10:32 Dose: 50 mg Documented By: TRAVIS Hydralazine HCl (Hydralazine Hcl 20 Mg/Ml Vial) 10 mg IVPUSH Q6H PRN; Protocol PRN Reason: SBP > 160 Last Admin: 12/22/24 20:32 Dose: 10 mg Documented By: KATIE Hydromorphone HCl (Hydromorphone Hcl 1 Mg/Ml Syringe) 1 mg IVPUSH Q6H PRN; Protocol PRN Reason: Pain, Severe (Pain Scale 7-10) Last Admin: 01/05/25 09:44 Dose: 1 mg Documented By: TRAVIS Lactated Ringer's (Lr) 500 mls @ 20 mls/hr IVCONT .Q24H [facility] Insulin Human Lispro (Insulin Lispro 100 Unit/Ml 3 Ml Vial) 0 unit SUBCUT QIDACHS [facility]; Protocol Last Admin: 01/05/25 11:39 Dose: Not Given Documented By: TRAVIS Non-Admin Reason: patient refused to have BS checked Metoclopramide HCl (Metoclopramide Hcl 10 Mg Tablet) 10 mg PO Q6H PRN PRN Reason: Nausea and Vomiting Naloxone HCl (Naloxone Hcl 0.4 Mg/Ml Vial) 0.04 mg IVPUSH Q5M PRN PRN Reason: Excessive sedation or RR < 8 Ondansetron HCl (Ondansetron Hcl 4 Mg/2 Ml Vial) 4 mg IVPUSH Q6H PRN PRN Reason: Nausea and Vomiting Last Admin: 01/04/25 20:59 Dose: 4 mg Documented By: ELISE Ondansetron HCl (Ondansetron Hcl 4 Mg/2 Ml Vial) 4 mg IVPUSH ONCE PRN PRN Reason: Nausea and Vomiting Stop: 01/05/25 19:46 Labs 01/05/25 05:22 01/05/25 11:29 Labs: Laboratory Results - last 24 hr 12/30/24 01/05/25 01/05/25 08:27 05:22 08:33 MCV 92.0 MCH 30.4 MCHC 33.1 RDW 13.9 Plt Count 99 L MPV 13.0 H Immature Gran % (Auto) 1.0 H Neut % (Auto) 64.3 Lymph % (Auto) 15.8 L [place] % (Auto) 14.0 H Eos % (Auto) 4.3 H Baso % (Auto) 0.6 Lymph # (Auto) 0.8 L [place] # (Auto) 0.7 Eos # (Auto) 0.2 Baso # (Auto) 0.0 Abs Immat Gran (auto) 0.05 H Absolute Neuts (auto) 3.3 Absolute Nucleated RBC 0.000 Nucleated RBC % (auto) 0.0 Anion Gap 21 H Estim Creat Clear Calc 8.7 Estimated GFR 4 POC Glucose 139 H Random Glucose 81 Fructosamine 326 H Calcium 8.4 D Total Bilirubin 0.5 AST 34 H ALT 19 Alkaline Phosphatase 141 H Total Protein 7.1 Albumin 3.7 01/05/25 13:06 MCV MCH MCHC RDW Plt Count MPV Immature Gran % (Auto) Neut % (Auto) Lymph % (Auto) [place] % (Auto) Eos % (Auto) Baso % (Auto) Lymph # (Auto) [place] # (Auto) Eos # (Auto) Baso # (Auto) Abs Immat Gran (auto) Absolute Neuts (auto) Absolute Nucleated RBC Nucleated RBC % (auto) Anion Gap Estim Creat Clear Calc Estimated GFR POC Glucose 81 Random Glucose Fructosamine Calcium Total Bilirubin AST ALT Alkaline Phosphatase Total Protein Albumin Assessment and Plan (1) Type II diabetes mellitus: Status: Acute (2) ESRD on hemodialysis: Status: Acute (3) Chronic osteomyelitis: Status: Acute Plan 34-year-old woman with ESRD on hemodialysis (noncompliant), poorly controlled diabetes, PAD s/p bilateral transmetatarsal amputation, chronic left foot osteomyelitis, and multiple recent hospitalizations, presenting after a mechanical fall at home and missed dialysis and is to undergo amputation of L foot for surgical mx of Chronic OM. repostponed due to persistent hyperkalemia Chronic nonhealing L foot OM -awaiting L BKA for definitive treatment -Cont Wound care, offload wt -no abx per ID -K+ ordered after Dialysis, if normal will be taken to OR ESRD on Hemodialysis Hyperkalemia likely 2/2 ESRD -Continue w. hemodialysis, monitor for encephalopathy, fluid overload -counseling given on avoiding food from home containing high potassium content, -Stat K+ ordered after completion of dialysis T2DM, chronic -a1c 5.7%, however given patients Hb, could be inaccurate. -continue w/ ISS, monitor labs, goal 140-180mg/dL Cardiomyopathy (HFrEF) 41% per TTE 05/30/24 -continue medications, unable to start spironolactone in setting of ESRD and Hyperkalemia. 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 difficile infection (on fidaxomicin), depression/anxiety, legal blindness. - VTE: Heparin 5000 t.i.d. - CODE STATUS: Full code - DIET: Renal Disposition: All questions and concerns with the patient were answered to satisfaction. All pertinent clinical documents, images and labs were reviewed. DISCLAIMER: This document was created using voice recognition software. Any mistakes in the prescription are unintentional. An attempt was made to focus for accuracy, but to expedite availability, some errors may persist. Please contact with any need for correction or further clarification Total time managing care of this patient today: 35 minutes. Quality Stroke Does the patient have a stroke diagnosis?: No VTE Prior VTE?: No VTE Risk Level:: Medical - moderate - high VTE Device Contraindication: Treatment Not Indicated VTE Drug Contraindication: N/A - Med Ordered
--- NOTE | 2025-01-05 15:28 | W.PM.OPN ---
Operative Note Operative Note Date of Service: 01/05/25 Narrative: Preop diagnosis: Osteomyelitis, left foot with chronic ulcers Postop diagnosis: The same Procedure: BKA, left leg Surgeon: Tu Rajput MD hygiene assistant: JOVON Chandra The patient is a 34 year old female with multiple medical problems including end-stage renal disease, diabetes, here for BKA of the left foot because of chronic ulcers along with the associated pain, and osteomyelitis. She understood the technique of the planned procedure as was the risks, benefits, and alternatives . She had undergone hemodialysis earlier and the potassium was 4.0 A superficial femoral nerve block was done by the anesthesiologist The patient is brought to the operating room. She was placed supine under general anesthesia via laryngeal mask airway. The left leg was prepped and draped in the usual sterile fashion. A surgical time-out was done. The patient received 1 g of cefazolin. I tourniquet was in position I marked my planned line of incision to create a Li flap for the BKA I made the incision on the skin with a blade 15. And this carried down with electrocautery through the full-thickness of the skin and subcutaneous fat. At this point I then proceeded to tightened the tourniquet. I then continued to divide muscle fibers beneath the fascia and I then proceeded to expose the tibia. I divided the muscle fibers surrounding the tibia with electrocautery to achieve exposure of the tibia at the level of the amputation. Once this was achieved, I proceeded to dissect this circumferentially and I was able to pass a gauze around this. I used the periosteal elevator to expose the tibia up to 2 cm past the skin incision. I used the bone saw to divide the tibia. We then proceeded to continued to divide the muscles on this area until was able to expose the multiple vascular pedicles. I exposed these pedicles and applied clamps proximal distal. These pedicles were divided between clamps and ligated with Polysorb 2-0 ties I continued to then continued to dissect with electrocautery to expose the gastrocnemius muscle. I isolated the gastrocnemius muscle and extended the incision from the skin through the muscle layer surrounding this gastrocnemius until was able to create my flap. By doing so was able to then continued to divide the muscles surrounding the tibia and the fibula at the level of the amputation. I was able to expose the fibula and divided this with the bone saw and We then proceeded to continued to divide the rest of the attached muscles, making sure that we were preserving the gastrocnemius muscle as a flap. I completed division of the subcutaneous fat at the distal level for the flap and divided the rest of the attached muscles to the lower leg and this has delivered. This was sent as a specimen I copiously irrigated. We then released the tourniquet. We continued to irrigate any oozing areas that were seen. We copiously irrigated. I applied a bone bone wax on the stump of fibula and well as the tibia. The fibula had been also trimmed to make this about a cm shorter than the tibia We copiously irrigated. We then proceeded to close the flap over the tibia and the fibula. I applied Polysorb 2-0 deep sutures to the gastrocnemius muscle and the fascial layer anteriorly and posteriorly to close the flap over the stump. We trimmed excess skin and subcutaneous tissue and muscle. I then applied full-thickness nylon 3-0 simple sutures to close the skin Fluffy dressings were applied over the flap and the incision. The area was then wrapped with Kerlix roll as well as a wide Izaiah bandage The procedure was completed The patient tolerated procedure well. There were no immediate complications. Initial final counts of sponges and instruments were correct. Estimated blood loss about over 100 cc. The patient is extubated without difficulty and transferred to the recovery room with stable vital signs.
[2025-01-05 15:49] LABS: Glucose, Whole Blood 120 mg/dL (60-115)
[2025-01-05 16:25] LABS: Glucose, Whole Blood 120 mg/dL (60-115)
--- NOTE | 2025-01-05 17:07 | PM.EVENT ---
Event Note Date of Service: 01/05/25 Event Note: Seen postop Underwent BKA of the left leg earlier Appears to have adequate pain control Stable vital signs Dressings dry Keep left leg stump elevated Pain management Plan to change dressings after 48 hours Time Spent With Patient Time: Total time managing care of this patient today ____ minutes.
--- NOTE | 2025-01-05 17:47 | PC.NURSE ---
BP 90/[address] Nuñez notified,patient has no complaints
[2025-01-05] MEDS: oxyCODONE HCl Immed Release 5 MG TABLET PO (17:50)
[2025-01-05 20:38] LABS: Glucose, Whole Blood 123 mg/dL (60-115)
--- NOTE | 2025-01-05 22:05 | P.PNNP_ITS ---
Subjective Subjective Date of Service: 01/05/25 Interval history: Seen and examined,e vent snoted Physical Exam 2 Vital Signs: Vital Signs: Last Vital Signs Temp 97.9 F 01/05/25 19:45 Pulse 85 01/05/25 19:45 Resp 18 01/05/25 19:45 BP 107/55 L 01/05/25 20:40 Pulse Ox 100 01/05/25 19:45 O2 Del Method Room Air 01/05/25 19:45 O2 Flow Rate 4 01/05/25 15:48 BMI result Body Mass Index 35.2 Const: General: cooperative, healthy appearing, comfortable and no acute distress Orientation/consciousness: patient oriented x3 Limitations: no limitations HEENT: Head: Yes normal to inspection and Yes atraumatic Ears: hearing grossly normal bilaterally General nose exam: Normal external nose present Face and sinus: Yes normal facial exam Eyes: General: appearance normal, both eyes and all related structures EOM: EOMs intact bilaterally Neck: Other: C-collar in place. Cervical tenderness noted. Neck: Yes normal visual inspection and Yes no meningeal signs Resp: Effort & Inspection: normal respiratory effort and no respiratory distress Auscultation: clear to auscultation bilaterally, no crackles and no wheezes Cardio: Rate: regular rate Heart sounds: S1 normal heart sound present and S2 normal heart sound present GI: Inspection: Yes normal to inspection Palpation (GI): Soft to palpation, nontender, no guarding and not rigid : General: Yes no CVA tenderness Back/Spine/Pelvis: Other: No midline cervical/thoracic/lumbar spinous tenderness/step-off or deformity Back: no CVA tenderness Skin: Rashes: no rashes Wounds: no wounds Neuro: General: patient oriented x3, tone normal, moves all extremities, no meningeal signs and no focal motor deficits Cranial nerves: Yes CN's II-XII intact bilaterally Gait exam (Neuro): Normal gait present Extrem: Other: Bilateral TMA left foot: 4x4 cm ulcer on the plantar ascpect of the foot, scant serosanguenious drainage.thick callous on the surrounding wound border. lateral foot ulcer, very tender, limiting exam. there was a small fluid collection jsut superior to the wound that expressed some fluid through the wound. malodor. General: Yes normal to inspection Objective Data Labs 01/05/25 05:22 01/05/25 11:29 Labs: Laboratory Results - last 24 hr 01/05/25 01/05/25 01/05/25 05:22 08:33 11:29 WBC 5.1 RBC 3.12 L Hgb 9.5 L Hct 28.7 L MCV 92.0 MCH 30.4 MCHC 33.1 RDW 13.9 Plt Count 99 L MPV 13.0 H Immature Gran % (Auto) 1.0 H Neut % (Auto) 64.3 Lymph % (Auto) 15.8 L [place] % (Auto) 14.0 H Eos % (Auto) 4.3 H Baso % (Auto) 0.6 Lymph # (Auto) 0.8 L [place] # (Auto) 0.7 Eos # (Auto) 0.2 Baso # (Auto) 0.0 Abs Immat Gran (auto) 0.05 H Absolute Neuts (auto) 3.3 Absolute Nucleated RBC 0.000 Nucleated RBC % (auto) 0.0 Sodium 136 Potassium 6.1 H* 4.0 D Chloride 104 Carbon Dioxide 17 L Anion Gap 21 H BUN 65 H Creatinine 9.83 H* Estim Creat Clear Calc 8.7 Estimated GFR 4 POC Glucose 139 H Random Glucose 81 Calcium 8.4 D Total Bilirubin 0.5 AST 34 H ALT 19 Alkaline Phosphatase 141 H Total Protein 7.1 Albumin 3.7 01/05/25 01/05/25 01/05/25 13:06 15:35 16:19 WBC RBC Hgb Hct MCV MCH MCHC RDW Plt Count MPV Immature Gran % (Auto) Neut % (Auto) Lymph % (Auto) [place] % (Auto) Eos % (Auto) Baso % (Auto) Lymph # (Auto) [place] # (Auto) Eos # (Auto) Baso # (Auto) Abs Immat Gran (auto) Absolute Neuts (auto) Absolute Nucleated RBC Nucleated RBC % (auto) Sodium Potassium Chloride Carbon Dioxide Anion Gap BUN Creatinine Estim Creat Clear Calc Estimated GFR POC Glucose 81 120 H 120 H Random Glucose Calcium Total Bilirubin AST ALT Alkaline Phosphatase Total Protein Albumin 01/05/25 20:34 WBC RBC Hgb Hct MCV MCH MCHC RDW Plt Count MPV Immature Gran % (Auto) Neut % (Auto) Lymph % (Auto) [place] % (Auto) Eos % (Auto) Baso % (Auto) Lymph # (Auto) [place] # (Auto) Eos # (Auto) Baso # (Auto) Abs Immat Gran (auto) Absolute Neuts (auto) Absolute Nucleated RBC Nucleated RBC % (auto) Sodium Potassium Chloride Carbon Dioxide Anion Gap BUN Creatinine Estim Creat Clear Calc Estimated GFR POC Glucose 123 H Random Glucose Calcium Total Bilirubin AST ALT Alkaline Phosphatase Total Protein Albumin Microbiology Microbiology Results: Microbiology 12/22/24 09:22 Blood - Venous Blood Culture - Final No growth after 5 days. 12/22/24 09:22 Blood - Venous Blood Culture - Final No growth after 5 days. Procedures Date of Service Date of Service: 01/05/25 Assessment & Plan Assessment and plan (1) Noncompliance: Status: Resolved (2) Opioid dependence: Status: Resolved (3) PAD (peripheral artery disease): Status: Inactive (4) DM foot ulcer: Status: Resolved (5) Hypoglycemia: Status: Resolved (6) Gastroparesis: Status: Inactive (7) ESRD on dialysis: Status: Inactive (8) Renal failure: Status: Inactive (9) Hyperkalemia: Status: Acute (10) Anemia: Status: Inactive (11) Osteomyelitis: Status: Inactive (12) Acute osteomyelitis of left foot: Status: Resolved (13) Acute pain of left foot: Status: Resolved (14) Plantar ulcer of left foot: Status: Inactive (15) Cerebral microvascular disease: Status: Inactive (16) Relapsing remitting multiple sclerosis: Status: Inactive (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 Progress Note: Quality Stroke Does the patient have a stroke diagnosis?: No
[2025-01-06 03:30] VITALS: BP 125/77; PULSE 91; RESP 18; TEMP 36.8; O2SAT 97
--- NOTE | 2025-01-06 03:57 | PC.NURSE ---
Patient is Post OP Left BKA, pain management maintained. Medicated with IVP Dilaudid as per MAR, however, pt also having some nausea and did vomit some yellow bile, small to mod amount and then had dry heaves . Medicated with IVP Zofran X 2, and IVP Benadryl X 1 for itchiness. Izaiah wrap dressing at left stump has a very small bloody stain at inner edge, elevated to pillow at all times. POC was 123, therefore no ISS needed. VSS. Continue to monitor.
[2025-01-06 07:37] VITALS: BP 132/83; PULSE 89; RESP 16; TEMP 36.5; O2SAT 96
--- NOTE | 2025-01-06 08:35 | PM.PNGS ---
Subjective Subjective Date of Service: 01/06/25 <Sindi Chandra PA-C - Last Filed: 01/06/25 08:39> 01/06/25 <Tu Rajput MD - Last Filed: 01/06/25 12:33> Interval history: Reports pain at the amputation site. Reports IV dilaudid helping with the pain. <Sindi Chandra PA-C - Last Filed: 01/06/25 08:39> Physical Exam Vital Signs: Vital Signs: Last Vital Signs Temp 97.7 F 01/06/25 07:37 Pulse 89 01/06/25 07:37 Resp 16 01/06/25 07:37 BP 132/83 01/06/25 07:37 Pulse Ox 96 01/06/25 07:37 O2 Del Method Room Air 01/06/25 07:37 O2 Flow Rate 4 01/05/25 15:48 BMI result Body Mass Index 35.2 <Sindi Chandra PA-C - Last Filed: 01/06/25 08:39> Const: General: comfortable, no acute distress and alert <Sindi Chandra PA-C - Last Filed: 01/06/25 08:39> Resp: Effort & Inspection: normal respiratory effort <Sindi Chandra PA-C - Last Filed: 01/06/25 08:39> Skin: Other: warm and dry <Sindi Chandra PA-C - Last Filed: 01/06/25 08:39> Extrem: Other: left BKA dressing clean and intact <Sindi Chandra PA-C - Last Filed: 01/06/25 08:39> Objective Data Active Medications Albuterol Sulfate (Albuterol Sulfate 90 Mcg 8 Gm Inhaler) 2 puff INHALE Q6H PRN PRN Reason: Wheezing Carvedilol (Carvedilol 12.5 Mg Tablet) 12.5 mg PO BID [facility]; Protocol Last Admin: 01/06/25 08:25 Dose: Not Given Documented By: TRAVIS Non-Admin Reason: Patient Refused Dextrose (Dextrose 50 % 25 Gm/50 Ml Syringe) 25 gm IVPUSH Q15M PRN; Protocol PRN Reason: per Hypoglycemia Standing Ord. Diphenhydramine HCl (Diphenhydramine Hcl 50 Mg/Ml Vial) 12.5 mg IVPUSH Q6H PRN PRN Reason: Itching Last Admin: 01/06/25 03:05 Dose: 12.5 mg Documented By: ELISE Glucose (Glucose Gel 15 Gm Gel..Gram.) 15 gm PO Q15M PRN; Protocol PRN Reason: per Hypoglycemia Standing Ord. Heparin Sodium (Porcine) (Heparin Sodium,Porcine 5,000 Unit/Ml Vial) 5,000 unit SUBCUT Q12H [facility] Last Admin: 01/06/25 04:52 Dose: Not Given Documented By: ELISE Non-Admin Reason: Patient Refused Hydralazine HCl (Hydralazine Hcl 50 Mg Tablet) 50 mg PO TID [facility]; Protocol Last Admin: 01/06/25 08:25 Dose: Not Given Documented By: TRAVIS Non-Admin Reason: Patient Refused Hydralazine HCl (Hydralazine Hcl 20 Mg/Ml Vial) 10 mg IVPUSH Q6H PRN; Protocol PRN Reason: SBP > 160 Last Admin: 12/22/24 20:32 Dose: 10 mg Documented By: KATIE Hydromorphone HCl (Hydromorphone Hcl 1 Mg/Ml Syringe) 1 mg IVPUSH Q4H PRN; Protocol PRN Reason: Pain, Severe (Pain Scale 7-10) Last Admin: 01/06/25 04:49 Dose: 1 mg Documented By: ELISE Insulin Human Lispro (Insulin Lispro 100 Unit/Ml 3 Ml Vial) 0 unit SUBCUT QIDACHS [facility]; Protocol Last Admin: 01/06/25 08:23 Dose: Not Given Documented By: TRAVIS Non-Admin Reason: Patient Refused Comments: pt refused to have BS checked Metoclopramide HCl (Metoclopramide Hcl 10 Mg Tablet) 10 mg PO Q6H PRN PRN Reason: Nausea and Vomiting Ondansetron HCl (Ondansetron Hcl 4 Mg/2 Ml Vial) 4 mg IVPUSH Q6H PRN PRN Reason: Nausea and Vomiting Last Admin: 01/06/25 02:50 Dose: 4 mg Documented By: ELISE Oxycodone HCl (Oxycodone Hcl Immed Release 5 Mg Tablet) 5 mg PO Q4H PRN PRN Reason: Pain, Moderate(Pain Scale 4-6) Last Admin: 01/05/25 17:50 Dose: 5 mg Documented By: TRAVIS <Sindi Chandra PA-C - Last Filed: 01/06/25 08:39> Labs CBC & Chem 7: 01/05/25 05:22 01/05/25 11:29 <Sindi Chandra PA-C - Last Filed: 01/06/25 08:39> Labs: Laboratory Results - last 24 hr 01/05/25 01/05/25 01/05/25 08:33 13:06 15:35 POC Glucose 139 H 81 120 H 01/05/25 01/05/25 16:19 20:34 POC Glucose 120 H 123 H <Sindi Chandra PA-C - Last Filed: 01/06/25 08:39> Procedures Date of Service Date of Service: 01/06/25 <Sindi Chandra PA-C - Last Filed: 01/06/25 08:39> 01/06/25 <Tu Rajput MD - Last Filed: 01/06/25 12:33> Progress Note: A&P Assessment and plan (1) Chronic osteomyelitis: Status: Acute <Sindi Chandra PA-C - Last Filed: 01/06/25 08:39> Assessment and Plan: No events overnight Appears to have adequate pain control Stable vital signs Dressings dry Continue pain management Plan to change the dressings tomorrow Seen and examined independently <Tu Rajput MD - Last Filed: 01/06/25 12:33> (2) Status post below-knee amputation of left lower extremity: Status: Acute <Sindi Chandra PA-C - Last Filed: 01/06/25 08:39> Assessment and Plan: POD #1 s/p BKA, left leg for osteomyelitis with chronic foot ulcers. Patient reports adequate pain control this morning. VSS. Left BKA dressing clean and intact. AM labs have not been drawn yet. Will plan dressing change tomorrow. Keep left leg elevated, ice as needed. Patient comfortable with plan. <Sindi Chandra PA-C - Last Filed: 01/06/25 08:39> Time Spent With Patient Time: Total time managing care of this patient today ____ minutes. <Sindi Chandra PA-C - Last Filed: 01/06/25 08:39> Quality Stroke Does the patient have a stroke diagnosis?: No <Sindi Chandra PA-C - Last Filed: 01/06/25 08:39> VTE Prior VTE?: No <Sindi Chandra PA-C - Last Filed: 01/06/25 08:39> VTE Risk Level:: Medical - moderate - high <Sindi Chandra PA-C - Last Filed: 01/06/25 08:39> VTE Device Contraindication: Treatment Not Indicated <Sindi Chandra PA-C - Last Filed: 01/06/25 08:39> VTE Drug Contraindication: N/A - Med Ordered <Sindi Chandra PA-C - Last Filed: 01/06/25 08:39>
--- NOTE | 2025-01-06 08:50 | HO.POSTANES ---
Post Anesthesia Evaluation Post Anesthesia Evaluation Date of Service: 01/06/25 Vital Signs: Vital Signs Temp Pulse Resp BP Pulse Ox O2 Del Method 01/06/25 07:37 97.7 F 89 16 132/83 96 Room Air 01/06/25 03:30 98.3 F 91 18 125/77 97 Room Air Anesthesia: Nerve Block and General Mental Status: Awake Pain Control: Satisfactory Nausea/Vomiting: None Hydration: Adequate Anesthesia-Related Issues: No Anes. Related Issues
[2025-01-06 11:31] LABS: Glucose, Whole Blood 122 mg/dL (60-115)
--- NOTE | 2025-01-06 13:48 | PC.NURSE ---
patient crying requested that I take a splint off her operative leg,RN adjusted it but patient still requested to have it off ,JOVON Delong notified
[2025-01-06 15:06] VITALS: BP 121/56; PULSE 90; RESP 18; TEMP 36; O2SAT 95
--- NOTE | 2025-01-06 15:58 | P.PNIM_ITS ---
Subjective Subjective Date of Service: 01/06/25 Interval History: Patient seen examined at bedside this morning, patient states that she is feeling well, underwent left BKA yesterday, this time denies any complaints. No concerns voiced by the nursing staff. Review of Systems Review of Systems: Yes all other systems are reviewed and are negative Physical Exam 2 Exam: Exam: General: AxOx3, No acute distress, blindness Head: AT/NC ENT: Moist mucous membranes Neck: supple CVS; RRR, S1 S2 normal Lungs: Clear bilateral breath sounds, no wheezes or crackles Abd: Soft non tender, non distended Ext: No edema and no calf tenderness MSK: Left BKA with dressing in place C/D/I, right lower extremity with dressing in place. Skin: No cyanosis Psych: Cooperative with exam Neurology: no focal deficit Vital Signs: Vital Signs: Last Vital Signs Temp 96.8 F 01/06/25 15:06 Pulse 90 01/06/25 15:06 Resp 18 01/06/25 15:06 BP 121/56 L 01/06/25 15:06 Pulse Ox 95 01/06/25 15:06 O2 Del Method Room Air 01/06/25 15:06 O2 Flow Rate 4 01/05/25 15:48 BMI result Body Mass Index 35.2 Objective Data Active Medications Albuterol Sulfate (Albuterol Sulfate 90 Mcg 8 Gm Inhaler) 2 puff INHALE Q6H PRN PRN Reason: Wheezing Carvedilol (Carvedilol 12.5 Mg Tablet) 12.5 mg PO BID [facility]; Protocol Last Admin: 01/06/25 08:25 Dose: Not Given Documented By: TRAVIS Non-Admin Reason: Patient Refused Dextrose (Dextrose 50 % 25 Gm/50 Ml Syringe) 25 gm IVPUSH Q15M PRN; Protocol PRN Reason: per Hypoglycemia Standing Ord. Diphenhydramine HCl (Diphenhydramine Hcl 50 Mg/Ml Vial) 12.5 mg IVPUSH Q6H PRN PRN Reason: Itching Last Admin: 01/06/25 15:32 Dose: 12.5 mg Documented By: TRAVIS Glucose (Glucose Gel 15 Gm Gel..Gram.) 15 gm PO Q15M PRN; Protocol PRN Reason: per Hypoglycemia Standing Ord. Heparin Sodium (Porcine) (Heparin Sodium,Porcine 5,000 Unit/Ml Vial) 5,000 unit SUBCUT Q12H [facility] Last Admin: 01/06/25 04:52 Dose: Not Given Documented By: ELISE Non-Admin Reason: Patient Refused Hydralazine HCl (Hydralazine Hcl 50 Mg Tablet) 50 mg PO TID [facility]; Protocol Last Admin: 01/06/25 15:31 Dose: 50 mg Documented By: TRAVIS Hydralazine HCl (Hydralazine Hcl 20 Mg/Ml Vial) 10 mg IVPUSH Q6H PRN; Protocol PRN Reason: SBP > 160 Last Admin: 12/22/24 20:32 Dose: 10 mg Documented By: KATIE Hydromorphone HCl (Hydromorphone Hcl 1 Mg/Ml Syringe) 1 mg IVPUSH Q4H PRN; Protocol PRN Reason: Pain, Severe (Pain Scale 7-10) Last Admin: 01/06/25 13:59 Dose: 1 mg Documented By: TRAVIS Insulin Human Lispro (Insulin Lispro 100 Unit/Ml 3 Ml Vial) 0 unit SUBCUT QIDACHS [facility]; Protocol Last Admin: 01/06/25 11:38 Dose: Not Given Documented By: TRAVIS Non-Admin Reason: No Insulin Coverage Metoclopramide HCl (Metoclopramide Hcl 10 Mg Tablet) 10 mg PO Q6H PRN PRN Reason: Nausea and Vomiting Ondansetron HCl (Ondansetron Hcl 4 Mg/2 Ml Vial) 4 mg IVPUSH Q6H PRN PRN Reason: Nausea and Vomiting Last Admin: 01/06/25 02:50 Dose: 4 mg Documented By: ELISE Oxycodone HCl (Oxycodone Hcl Immed Release 5 Mg Tablet) 5 mg PO Q4H PRN PRN Reason: Pain, Moderate(Pain Scale 4-6) Last Admin: 01/05/25 17:50 Dose: 5 mg Documented By: TRAVIS Labs 01/05/25 05:22 01/05/25 11:29 Labs: Laboratory Results - last 24 hr 01/05/25 01/05/25 01/06/25 16:19 20:34 11:26 POC Glucose 120 H 123 H 122 H Assessment and Plan (1) ESRD on hemodialysis: Status: Acute (2) Chronic osteomyelitis: Status: Acute (3) Status post below-knee amputation of left lower extremity: Status: Acute Plan 34-year-old woman with ESRD on hemodialysis (noncompliant), poorly controlled diabetes, PAD s/p bilateral transmetatarsal amputation, chronic left foot osteomyelitis, and multiple recent hospitalizations, presenting after a mechanical fall at home and missed dialysis and is to undergo amputation of L foot for surgical mx of Chronic OM. underwent Left BKA on 01/05. Chronic nonhealing L foot OM s/p left BKA on 01/05 -Cont Wound care, offload wt -no abx per ID ESRD on Hemodialysis Hyperkalemia likely 2/2 ESRD, fluctuates -Continue w. hemodialysis, monitor for encephalopathy, fluid overload -counseling given on avoiding food from home containing high potassium content, T2DM, chronic -a1c 5.7%, however given patients Hb, could be inaccurate. -continue w/ ISS, monitor labs, goal 140-180mg/dL Cardiomyopathy (HFrEF) 41% per TTE 05/30/24 -continue medications, unable to start spironolactone in setting of ESRD and Hyperkalemia. 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 difficile infection (on fidaxomicin), depression/anxiety, legal blindness. - VTE: Heparin 5000 t.i.d. - CODE STATUS: Full code - DIET: Renal Disposition: All questions and concerns with the patient were answered to satisfaction. All pertinent clinical documents, images and labs were reviewed. DISCLAIMER: This document was created using voice recognition software. Any mistakes in the prescription are unintentional. An attempt was made to focus for accuracy, but to expedite availability, some errors may persist. Please contact with any need for correction or further clarification Total time managing care of this patient today: 55 minutes. Quality Stroke Does the patient have a stroke diagnosis?: No VTE Prior VTE?: No VTE Risk Level:: Medical - moderate - high VTE Device Contraindication: Treatment Not Indicated VTE Drug Contraindication: N/A - Med Ordered
--- NOTE | 2025-01-06 18:28 | PC.NURSE ---
patient refuses Heparin risks explained,encouraged leg excercises
[2025-01-06 20:00] VITALS: BP 132/60; PULSE 93; RESP 20; TEMP 36.5; O2SAT 91
[2025-01-06 21:01] VITALS: RESP 20
[2025-01-06 21:11] LABS: Glucose, Whole Blood 111 mg/dL (60-115)
[2025-01-06] MEDS: oxyCODONE HCl Immed Release 5 MG TABLET PO (22:31)
[2025-01-07] MEDS: oxyCODONE HCl Immed Release 5 MG TABLET PO (03:24)
[2025-01-07 03:45] VITALS: BP 146/87; PULSE 99; RESP 18; TEMP 36.3; O2SAT 97
[2025-01-07] MEDS: oxyCODONE HCl Immed Release 5 MG TABLET 10 MG PO ×5 (06:03→23:23)
--- NOTE | 2025-01-07 07:33 | P.PNIM_ITS ---
Subjective Subjective Date of Service: 01/07/25 Interval History: Patient was seen in dialysis unit, was complaining of pain which we were able to give post dialysis We switched her antiemetics from Zofran to Compazine Review of Systems Review of Systems: Yes all other systems are reviewed and are negative Physical Exam 2 Exam: Exam: General: AxOx3, No acute distress, blindness Head: AT/NC CVS; RRR, S1 S2 normal Lungs: Clear bilateral breath sounds, no wheezes or crackles Abd: Soft non tender, non distended MSK: Left BKA with dressing in place C/D/I, right lower extremity with dressing in place. Vital Signs: Vital Signs: Last Vital Signs Temp 97.4 F 01/07/25 03:45 Pulse 99 01/07/25 03:45 Resp 18 01/07/25 03:45 BP 146/87 H 01/07/25 03:45 Pulse Ox 97 01/07/25 03:45 O2 Del Method Room Air 01/07/25 03:45 O2 Flow Rate 4 01/05/25 15:48 BMI result Body Mass Index 35.2 Objective Data Active Medications Albuterol Sulfate (Albuterol Sulfate 90 Mcg 8 Gm Inhaler) 2 puff INHALE Q6H PRN PRN Reason: Wheezing Carvedilol (Carvedilol 12.5 Mg Tablet) 12.5 mg PO BID [facility]; Protocol Last Admin: 01/07/25 07:00 Dose: Not Given Documented By: NITIN Non-Admin Reason: Off unit: Dialysis Dextrose (Dextrose 50 % 25 Gm/50 Ml Syringe) 25 gm IVPUSH Q15M PRN; Protocol PRN Reason: per Hypoglycemia Standing Ord. Diphenhydramine HCl (Diphenhydramine Hcl 50 Mg/Ml Vial) 12.5 mg IVPUSH Q6H PRN PRN Reason: Itching Last Admin: 01/07/25 06:30 Dose: 12.5 mg Documented By: ISHAAN Glucose (Glucose Gel 15 Gm Gel..Gram.) 15 gm PO Q15M PRN; Protocol PRN Reason: per Hypoglycemia Standing Ord. Heparin Sodium (Porcine) (Heparin Sodium,Porcine 5,000 Unit/Ml Vial) 5,000 unit SUBCUT Q12H [facility] Last Admin: 01/07/25 03:27 Dose: Not Given Documented By: NITIN Non-Admin Reason: Patient Refused Hydralazine HCl (Hydralazine Hcl 50 Mg Tablet) 50 mg PO TID [facility]; Protocol Last Admin: 01/07/25 07:00 Dose: Not Given Documented By: NITIN Non-Admin Reason: Off unit: Dialysis Hydralazine HCl (Hydralazine Hcl 20 Mg/Ml Vial) 10 mg IVPUSH Q6H PRN; Protocol PRN Reason: SBP > 160 Last Admin: 12/22/24 20:32 Dose: 10 mg Documented By: KATIE Hydromorphone HCl (Hydromorphone Hcl 1 Mg/Ml Syringe) 1 mg IVPUSH Q4H PRN; Protocol PRN Reason: Pain, Severe (Pain Scale 7-10) Last Admin: 01/07/25 04:09 Dose: 1 mg Documented By: NITIN Insulin Human Lispro (Insulin Lispro 100 Unit/Ml 3 Ml Vial) 0 unit SUBCUT QIDACHS [facility]; Protocol Last Admin: 01/07/25 06:59 Dose: Not Given Documented By: NITIN Non-Admin Reason: Off unit: Dialysis Metoclopramide HCl (Metoclopramide Hcl 10 Mg Tablet) 10 mg PO Q6H PRN PRN Reason: Nausea and Vomiting Ondansetron HCl (Ondansetron Hcl 4 Mg/2 Ml Vial) 4 mg IVPUSH Q6H PRN PRN Reason: Nausea and Vomiting Last Admin: 01/06/25 02:50 Dose: 4 mg Documented By: ELISE Oxycodone HCl (Oxycodone Hcl Immed Release 5 Mg Tablet) 10 mg PO Q4H PRN PRN Reason: Pain, Moderate(Pain Scale 4-6) Last Admin: 01/07/25 06:03 Dose: 10 mg Documented By: NITIN Labs 01/07/25 09:33 01/07/25 09:33 Labs: Laboratory Results - last 24 hr 01/06/25 01/06/25 11:26 21:07 POC Glucose 122 H 111 Assessment and Plan (1) ESRD on hemodialysis: Status: Acute (2) Chronic osteomyelitis: Status: Acute (3) Status post below-knee amputation of left lower extremity: Status: Acute Plan 34-year-old woman with ESRD on hemodialysis (noncompliant), poorly controlled diabetes, PAD s/p bilateral transmetatarsal amputation, chronic left foot osteomyelitis, and multiple recent hospitalizations, presenting after a mechanical fall at home and missed dialysis and is to undergo amputation of L foot for surgical mx of Chronic OM. underwent Left BKA on 01/05. Chronic nonhealing L foot OM s/p left BKA on 01/05 -Cont Wound care, offload wt -no abx per ID ESRD on Hemodialysis Hyperkalemia likely 2/2 ESRD, fluctuates -Continue w. hemodialysis, monitor for encephalopathy, fluid overload -counseling given on avoiding food from home containing high potassium content, T2DM, chronic -a1c 5.7%, however given patients Hb, could be inaccurate. -continue w/ ISS, monitor labs, goal 140-180mg/dL Cardiomyopathy (HFrEF) 41% per TTE 05/30/24 -continue medications, unable to start spironolactone in setting of ESRD and Hyperkalemia. 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 difficile infection (on fidaxomicin), depression/anxiety, legal blindness. - VTE: Heparin 5000 t.i.d. - CODE STATUS: Full code - DIET: Renal Disposition: Patient will likely need PTOT and ongoing care and dialysis per her schedule DISCLAIMER: This document was created using voice recognition software. Any mistakes in the prescription are unintentional. An attempt was made to focus for accuracy, but to expedite availability, some errors may persist. Please contact with any need for correction or further clarification Total time managing care of this patient today: 55 minutes. Quality Stroke Does the patient have a stroke diagnosis?: No VTE Prior VTE?: No VTE Risk Level:: Medical - moderate - high VTE Device Contraindication: Treatment Not Indicated VTE Drug Contraindication: N/A - Med Ordered
--- NOTE | 2025-01-07 08:14 | PM.PNGS ---
Subjective Subjective Date of Service: 01/07/25 Interval history: Complains of pain on amputation site Currently in hemodialysis No new events reported Physical Exam Vital Signs: Vital Signs: Last Vital Signs Temp 97.4 F 01/07/25 03:45 Pulse 99 01/07/25 03:45 Resp 18 01/07/25 03:45 BP 146/87 H 01/07/25 03:45 Pulse Ox 97 01/07/25 03:45 O2 Del Method Room Air 01/07/25 03:45 O2 Flow Rate 4 01/05/25 15:48 BMI result Body Mass Index 35.2 Const: Other: Complains of pain General: no acute distress Resp: Effort & Inspection: normal respiratory effort Cardio: Rate: regular rate GI: Palpation (GI): Soft to palpation Extrem: Other: BKA site on the left clean, no bleeding, no cellulitis, flaps viable Objective Data Active Medications Albuterol Sulfate (Albuterol Sulfate 90 Mcg 8 Gm Inhaler) 2 puff INHALE Q6H PRN PRN Reason: Wheezing Carvedilol (Carvedilol 12.5 Mg Tablet) 12.5 mg PO BID [facility]; Protocol Last Admin: 01/07/25 07:00 Dose: Not Given Documented By: NITIN Non-Admin Reason: Off unit: Dialysis Dextrose (Dextrose 50 % 25 Gm/50 Ml Syringe) 25 gm IVPUSH Q15M PRN; Protocol PRN Reason: per Hypoglycemia Standing Ord. Diphenhydramine HCl (Diphenhydramine Hcl 50 Mg/Ml Vial) 12.5 mg IVPUSH Q6H PRN PRN Reason: Itching Last Admin: 01/07/25 06:30 Dose: 12.5 mg Documented By: ISHAAN Glucose (Glucose Gel 15 Gm Gel..Gram.) 15 gm PO Q15M PRN; Protocol PRN Reason: per Hypoglycemia Standing Ord. Heparin Sodium (Porcine) (Heparin Sodium,Porcine 5,000 Unit/Ml Vial) 5,000 unit SUBCUT Q12H [facility] Last Admin: 01/07/25 03:27 Dose: Not Given Documented By: NITIN Non-Admin Reason: Patient Refused Hydralazine HCl (Hydralazine Hcl 50 Mg Tablet) 50 mg PO TID [facility]; Protocol Last Admin: 01/07/25 07:00 Dose: Not Given Documented By: NITIN Non-Admin Reason: Off unit: Dialysis Hydralazine HCl (Hydralazine Hcl 20 Mg/Ml Vial) 10 mg IVPUSH Q6H PRN; Protocol PRN Reason: SBP > 160 Last Admin: 12/22/24 20:32 Dose: 10 mg Documented By: KATIE Hydromorphone HCl (Hydromorphone Hcl 1 Mg/Ml Syringe) 1 mg IVPUSH Q4H PRN; Protocol PRN Reason: Pain, Severe (Pain Scale 7-10) Last Admin: 01/07/25 08:13 Dose: 1 mg Documented By: NITIN Insulin Human Lispro (Insulin Lispro 100 Unit/Ml 3 Ml Vial) 0 unit SUBCUT [facility]; Protocol Last Admin: 01/07/25 06:59 Dose: Not Given Documented By: NITIN Non-Admin Reason: Off unit: Dialysis Metoclopramide HCl (Metoclopramide Hcl 10 Mg Tablet) 10 mg PO Q6H PRN PRN Reason: Nausea and Vomiting Ondansetron HCl (Ondansetron Hcl 4 Mg/2 Ml Vial) 4 mg IVPUSH Q6H PRN PRN Reason: Nausea and Vomiting Last Admin: 01/06/25 02:50 Dose: 4 mg Documented By: ELISE Oxycodone HCl (Oxycodone Hcl Immed Release 5 Mg Tablet) 10 mg PO Q4H PRN PRN Reason: Pain, Moderate(Pain Scale 4-6) Last Admin: 01/07/25 06:03 Dose: 10 mg Documented By: NITIN Labs 01/05/25 05:22 01/05/25 11:29 Labs: Laboratory Results - last 24 hr 01/06/25 01/06/25 11:26 21:07 POC Glucose 122 H 111 Procedures Date of Service Date of Service: 01/07/25 Progress Note: A&P Assessment and plan (1) Chronic osteomyelitis: Status: Acute Assessment and Plan: Status post BKA left Dressings changed Thick dressings and Kerlix and Izaiah bandage reapplied Continue pain management Rest of care as per hospitalist service Wound care Elevate left leg on pillow Patient had a splint placed yesterday prevent contracture but she says that did not tolerate this because of pain Time Spent With Patient Time: Total time managing care of this patient today ____ minutes. Quality Stroke Does the patient have a stroke diagnosis?: No VTE Prior VTE?: No VTE Risk Level:: Medical - moderate - high VTE Device Contraindication: Treatment Not Indicated VTE Drug Contraindication: N/A - Med Ordered
[2025-01-07 10:11] LABS: MANUAL DIFF FLAG NO
[2025-01-07 10:31] LABS: Hematocrit 27.7 % (37.0-47.0); Hemoglobin 9.0 g/dl (12.0-16.0); Imm Gran Abs Auto 0.02 X10*3/uL (0.00-0.03); Imm Gran Pct Auto 0.2 % (0.0-0.4); Lymphocytes Absolute Auto 0.6 X10*3/uL (1.2-4.9); Mean Corpuscular HGB Conc 32.5 g/dl (31.0-35.0); Mean Corpuscular Hemoglobin 30.4 pg (27.0-33.0); Mean Corpuscular Volume 93.6 fL (80.0-98.0); NRBC Abs Auto 0.000 X10*3/uL (0.0-0.012); NRBC Pct Auto 0.0 /100WBC (0.0-0.2); Platelet Count 119 X10*3/uL (160-400); Red Blood Count 2.96 X10*6/uL (4.20-5.50); White Blood Count 9.6 X10*3/uL (4.8-10.8)
[2025-01-07 10:56] LABS: Alanine Aminotransferase < 6 U/L (0-31); Albumin Level 4.2 g/dL (3.5-5.0); Alkaline Phosphatase 185 U/L (39-117); Anion Gap 18 (12-20); Aspartate Amino Transferase 51 U/L (5-31); Blood Urea Nitrogen 15 mg/dL (9-16); Calcium 9.4 mg/dL (8.4-10.2); Carbon Dioxide 25 mmol/L (22-29); Chloride 101 mmol/L (96-108); Creatinine Clr Calc Pharmacy 29.2; Estimated Glomerular Filt Rate 18; Potassium 3.4 mmol/L (3.3-5.1); Sodium 141 mmol/L (135-145); Total Protein 8.1 g/dL (6.5-8.0)
[2025-01-07 11:25] LABS: Glucose, Whole Blood 97 mg/dL (60-115)
[2025-01-07 11:49] VITALS: BP 112/54; PULSE 99; RESP 18; TEMP 36.1; O2SAT 95
--- NOTE | 2025-01-07 15:26 | MHC.CM.PN ---
EMR REVIEWED AND PER MD ROUNDS, PT IS NOT YET MEDICALLY CLEARED FOR DC (PAIN MANAGEMENT CONTINUES) DP: HOME VS STR, PT UNABLE TO PARTICIPATE IN CONVERSATION DUE TO PAIN. CM WILL CONTINUE TO FOLLOW FOR PLAN.
[2025-01-07 15:35] VITALS: BP 130/60; PULSE 96; RESP 18; TEMP 36.2; O2SAT 94
--- NOTE | 2025-01-07 15:54 | MHC.CLN ---
F/U PATIENT WITH LEFT BKA 01/05. DIET RX: DM 1800 KCALS, LOW PHOSPHORUS, LOW POTASSIUM, 2 GRAM SODIUM. ESRD ON HD. DIET APPROPRIATE. PO INTAKE APPEARS POOR X [address] TO FOLLOW UP WEEKLY.
[2025-01-07 15:56] LABS: Glucose, Whole Blood 88 mg/dL (60-115)
[2025-01-07 19:32] VITALS: BP 109/57; PULSE 94; RESP 18; TEMP 36.1; O2SAT 94
[2025-01-07 20:45] LABS: Glucose, Whole Blood 90 mg/dL (60-115)
[2025-01-08] MEDS: oxyCODONE HCl Immed Release 5 MG TABLET 10 MG PO ×2 (03:58→14:29)
[2025-01-08 06:30] LABS: Hematocrit 22.8 % (37.0-47.0); Hemoglobin 7.7 g/dl (12.0-16.0); Imm Gran Abs Auto 0.07 X10*3/uL (0.00-0.03); Imm Gran Pct Auto 0.9 % (0.0-0.4); Lymphocytes Absolute Auto 0.9 X10*3/uL (1.2-4.9); MANUAL DIFF FLAG SCAN; Mean Corpuscular HGB Conc 33.8 g/dl (31.0-35.0); Mean Corpuscular Hemoglobin 31.2 pg (27.0-33.0); Mean Corpuscular Volume 92.3 fL (80.0-98.0); NRBC Abs Auto 0.000 X10*3/uL (0.0-0.012); NRBC Pct Auto 0.0 /100WBC (0.0-0.2); PLT CLUMP 1; Red Blood Count 2.47 X10*6/uL (4.20-5.50); SCAN SMEAR FLAG 1; White Blood Count 8.0 X10*3/uL (4.8-10.8)
[2025-01-08 06:31] LABS: Platelet Count 95 X10*3/uL (160-400)
[2025-01-08 06:48] LABS: Alanine Aminotransferase 6 U/L (0-31); Albumin Level 3.6 g/dL (3.5-5.0); Alkaline Phosphatase 200 U/L (39-117); Anion Gap 20 (12-20); Aspartate Amino Transferase 46 U/L (5-31); Blood Urea Nitrogen 35 mg/dL (9-16); Calcium 8.8 mg/dL (8.4-10.2); Carbon Dioxide 23 mmol/L (22-29); Chloride 96 mmol/L (96-108); Creatinine Clr Calc Pharmacy 12.7; Estimated Glomerular Filt Rate 7; Potassium 4.6 mmol/L (3.3-5.1); Sodium 134 mmol/L (135-145); Total Protein 7.1 g/dL (6.5-8.0)
--- NOTE | 2025-01-08 07:14 | P.PNIM_ITS ---
Subjective Subjective Date of Service: 01/08/25 Physical Exam 2 Vital Signs: Vital Signs: Last Vital Signs Temp 97.0 F 01/07/25 19:32 Pulse 94 01/07/25 19:32 Resp 18 01/07/25 19:32 BP 109/57 L 01/07/25 19:32 Pulse Ox 94 01/07/25 19:32 O2 Del Method Room Air 01/07/25 19:32 O2 Flow Rate 4 01/05/25 15:48 BMI result Body Mass Index 35.2 Objective Data Active Medications Albuterol Sulfate (Albuterol Sulfate 90 Mcg 8 Gm Inhaler) 2 puff INHALE Q6H PRN PRN Reason: Wheezing Carvedilol (Carvedilol 12.5 Mg Tablet) 12.5 mg PO BID [facility]; Protocol Last Admin: 01/07/25 21:33 Dose: Not Given Documented By: LANA Non-Admin Reason: Patient Refused Dextrose (Dextrose 50 % 25 Gm/50 Ml Syringe) 25 gm IVPUSH Q15M PRN; Protocol PRN Reason: per Hypoglycemia Standing Ord. Diphenhydramine HCl (Diphenhydramine Hcl 50 Mg/Ml Vial) 12.5 mg IVPUSH Q6H PRN PRN Reason: Itching Last Admin: 01/08/25 04:56 Dose: 12.5 mg Documented By: LANA Glucose (Glucose Gel 15 Gm Gel..Gram.) 15 gm PO Q15M PRN; Protocol PRN Reason: per Hypoglycemia Standing Ord. Heparin Sodium (Porcine) (Heparin Sodium,Porcine 5,000 Unit/Ml Vial) 5,000 unit SUBCUT Q12H [facility] Last Admin: 01/08/25 03:00 Dose: Not Given Documented By: LANA Non-Admin Reason: Patient Refused Hydralazine HCl (Hydralazine Hcl 50 Mg Tablet) 50 mg PO TID [facility]; Protocol Last Admin: 01/07/25 21:33 Dose: Not Given Documented By: LANA Non-Admin Reason: Patient Refused Hydralazine HCl (Hydralazine Hcl 20 Mg/Ml Vial) 10 mg IVPUSH Q6H PRN; Protocol PRN Reason: SBP > 160 Last Admin: 12/22/24 20:32 Dose: 10 mg Documented By: KATIE Hydromorphone HCl (Hydromorphone Hcl 1 Mg/Ml Syringe) 1 mg IVPUSH Q4H PRN; Protocol PRN Reason: Pain, Severe (Pain Scale 7-10) Last Admin: 01/08/25 04:56 Dose: 1 mg Documented By: LANA Insulin Human Lispro (Insulin Lispro 100 Unit/Ml 3 Ml Vial) 0 unit SUBCUT [facility]; Protocol Last Admin: 01/07/25 21:58 Dose: Not Given Documented By: LANA Non-Admin Reason: assessed, no action needed Oxycodone HCl (Oxycodone Hcl Immed Release 5 Mg Tablet) 10 mg PO Q4H PRN PRN Reason: Pain, Moderate(Pain Scale 4-6) Last Admin: 01/08/25 03:58 Dose: 10 mg Documented By: LANA Prochlorperazine Edisylate (Prochlorperazine Edisylate 10 Mg/2 Ml Vial) 5 mg IVPUSH Q6H PRN PRN Reason: Nausea and Vomiting Last Admin: 01/08/25 00:47 Dose: 5 mg Documented By: LANA Labs 01/07/25 09:33 01/08/25 05:44 Labs: Laboratory Results - last 24 hr 01/07/25 01/07/25 01/07/25 09:33 11:22 15:51 MCV 93.6 MCH 30.4 MCHC 32.5 RDW 14.2 Plt Count 119 L MPV 12.4 H Immature Gran % (Auto) 0.2 Neut % (Auto) 76.8 H Lymph % (Auto) 6.7 L [place] % (Auto) 14.8 H Eos % (Auto) 1.3 Baso % (Auto) 0.2 Lymph # (Auto) 0.6 L [place] # (Auto) 1.4 H Eos # (Auto) 0.1 Baso # (Auto) 0.0 Abs Immat Gran (auto) 0.02 Absolute Neuts (auto) 7.3 Absolute Nucleated RBC 0.000 Nucleated RBC % (auto) 0.0 Anion Gap 18 Estim Creat Clear Calc 29.2 Estimated GFR 18 POC Glucose 97 88 Random Glucose 99 Calcium 9.4 D Total Bilirubin 1.1 H AST 51 H ALT < 6 Alkaline Phosphatase 185 H Total Protein 8.1 H Albumin 4.2 Hold Red Top See Note Hold Yellow Top See Note 01/07/25 01/08/25 20:41 05:44 MCV MCH MCHC RDW Plt Count MPV Immature Gran % (Auto) Neut % (Auto) Lymph % (Auto) [place] % (Auto) Eos % (Auto) Baso % (Auto) Lymph # (Auto) [place] # (Auto) Eos # (Auto) Baso # (Auto) Abs Immat Gran (auto) Absolute Neuts (auto) Absolute Nucleated RBC Nucleated RBC % (auto) Anion Gap 20 Estim Creat Clear Calc 12.7 Estimated GFR 7 POC Glucose 90 Random Glucose 77 Calcium 8.8 D Total Bilirubin 0.7 AST 46 H ALT 6 Alkaline Phosphatase 200 H Total Protein 7.1 Albumin 3.6 Hold Red Top Hold Yellow Top Quality Stroke Does the patient have a stroke diagnosis?: No VTE Prior VTE?: No VTE Risk Level:: Medical - moderate - high VTE Device Contraindication: Treatment Not Indicated VTE Drug Contraindication: N/A - Med Ordered
[2025-01-08] MEDS: oxyCODONE HCl ER 10 MG TAB.ER.12H PO (09:24)
[2025-01-08 10:02] LABS: Glucose, Whole Blood 80 mg/dL (60-115)
[2025-01-08 15:21] VITALS: BP 133/65; PULSE 90; RESP 18; TEMP 36.8; O2SAT 98
--- NOTE | 2025-01-08 15:24 | MHC.CM.PN ---
DP: PT HAS BEEN MEDICALLY CLEARED FOR DC HOME WITH RESUMPTION OF [facility]. PT IS REFUSING STR AND AGREEABLE TO HOME SERVICES. [facility] UPDATED ON TODAY'S DC. RN AWARE. SISTER THOMAS IS AWARE WELL JEROME HARRISON. BLS TRANSPORT BOOKED FOR 5 PM VIA [employer]. FINAL IMM ISSUED.
--- NOTE | 2025-01-08 15:48 | PM.DS ---
DS: Providers Provider Date of Service: 01/08/25 Date of admission: 12/23/24 13:41 Date of discharge: 01/08/25 Primary care physician: Genevieve Casillas MD Consults: 12/22/24 16:02 Consult to Nephrology Routine Consulting Provider: [facility] Reason for consultation: esrd 12/22/24 21:04 Consult to Nephrology Routine Consulting Provider: Fernando Siddiqi Reason for consultation: Inpatient HD, thanks Has provider been notified: Yes 12/31/24 17:41 Consult to Wound Care Routine Consulting Provider: [facility] Wound Care Management Reason for consultation: chronic wounds 01/08/25 12:56 Addiction Medicine Provider Routine Consulting Provider: Addiction Covering Reason for consultation: would benefit from methadone or buprenorphine, huge issue of noncompliance DS: Diagnosis Discharge Diagnosis (1) ESRD on hemodialysis: Status: Acute (2) Chronic osteomyelitis: Status: Acute (3) Status post below-knee amputation of left lower extremity: Status: Acute DS: Summary Hospital Course Hospital Course: H&P as of 12/22/24: Chief Complaint: Fall at home; concern for bilateral infected foot wounds 34-year-old female with a complex medical history including: Peripheral artery disease (PAD) s/p bilateral transmetatarsal amputation (TMA) secondary to osteomyelitis End-stage renal disease (ESRD) on hemodialysis (//Sun) Uncontrolled type 2 diabetes mellitus Chronic opioid dependence Congestive heart failure (HFrEF) Relapsing-remitting multiple sclerosis 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 difficile infection Medical noncompliance (frequent missed dialysis, poor medication adherence) Recent Course Multiple recent ED visits and hospitalizations for chronic left foot osteomyelitis, diabetic foot ulcers, and complications of ESRD. Discharged from hospital within the past week after treatment for left foot osteomyelitis (managed with oral doxycycline, which she has not tolerated due to nausea/vomiting). Surgical and ID teams have been involved; consensus is that her osteomyelitis is chronic and not amenable to further IV or oral antibiotics at this time. Amputation (BKA) has been discussed as a future option. Home health and VNA referrals in place, but patient is often noncompliant with follow-up and care recommendations. Current Presentation Presents after a mechanical fall at home (tripped in bathroom, struck head on tub). No loss of consciousness, no new focal neurological deficits. Reports headache and neck pain, with associated nausea and vomiting (present prior to fall). Admits to missed dialysis session on Sunday; last session was . Was scheduled for dialysis today. Reports [id number] left foot wound with malodorous drainage. Denies chest pain, shortness of breath, or new systemic symptoms. No new symptoms suggestive of acute infection or decompensation beyond her baseline. HOSPITAL COURSE 34-year-old woman with ESRD on hemodialysis (noncompliant), poorly controlled diabetes (noncompliant), PAD s/p prior bilateral transmetatarsal amputation, chronic left foot osteomyelitis, and multiple recent hospitalizations for multiple missed hemodialysis sessions, presented after a mechanical fall at home and missed dialysis and underwent Left BKA for chronic osteomyelitis on 01/05. Chronic nonhealing L foot OM s/p left BKA on 01/05- Patient had a prolonged hospitalization stay as anesthesia risks concerned about her persistent hyperkalemia which we had fixed given low K diet, multiple rounds of rescue hemodialysis ID was consulted for chronic osteomyelitis no antibiotics indicated Dressings changed per wound care note Thick dressings and Kerlix and Izaiah bandage reapplied Continue pain management-Tylenol, oxycodone 5 mg Q 8 p.r.n. , Robaxin, lidocaine. Deferred PTOT, short-term rehab placement Wound care he-refer to the wound care instructions below Elevate left leg on pillow Patient had a splint placed yesterday prevent contracture but she says that did not tolerate this because of pain patient adamantly refusing splint ESRD on Hemodialysis Persistent fluctuating hyperkalemia-resolved with strict low K /ESRD diet Hyperkalemia likely 2/2 ESRD, -Continue w. hemodialysis, monitor for encephalopathy, fluid overload -patient to get hemodialysis tomorrow 01/09/2025 -counseling given on avoiding food from home containing high potassium content, T2DM, chronic -a1c 5.7%, however given patients Hb, could be falsely low. Was aggressively monitored and insulin was adjusted to maintain euglycemia while inpatient. Advised the patient to follow up with PCP for ongoing management, adherence to medication reinforced Cardiomyopathy (HFrEF) 41% per TTE 05/30/24 -continue medications, unable to start spironolactone in setting of ESRD and Hyperkalemia. 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 difficile infection (on fidaxomicin), depression/anxiety, legal blindness. -no new medication changes were made. - VTE: Heparin 5000 t.i.d. - CODE STATUS: Full code - DIET: Renal DISCLAIMER: This document was created using voice recognition software. Any mistakes in the prescription are unintentional. An attempt was made to focus for accuracy, but to expedite availability, some errors may persist. Please contact with any need for correction or further clarification Total time managing care of this patient today: 70 minutes- including Time spent discussing smoking cessation with patient: more than 10 minutes Status at Discharge Functional status at discharge: uses cane/walker Overall status at discharge: patient is progressing back to baseline Time Attestation Discharge Coordination Time (in mins): 70 mins - including morning chart review, CM and speciality review, Quality: Safe Use of Opioids Does Pt have an Active Cancer Diagnosis on the Problem List?: No Quality: Stroke Does the patient have a stroke diagnosis?: No Physical Exam Vital Signs: Vital Signs: Last Vital Signs Temp 98.2 F 01/08/25 15:21 Pulse 90 01/08/25 15:21 Resp 18 01/08/25 15:21 BP 133/65 01/08/25 15:21 Pulse Ox 98 01/08/25 15:21 O2 Del Method Room Air 01/08/25 15:21 O2 Flow Rate 4 01/05/25 15:48 BMI result Body Mass Index 35.2 DS: Data Data Completed and Pending Completed studies during hospitalization [Text1]: Pending at discharge 01/05/25 14:15 Surgical [PTH] Routine Procedures Detachment at Left 2nd Toe, Complete, Open Approach (09/08/23) Detachment at Left 3rd Toe, Complete, Open Approach (09/08/23) Detachment at Left 4th Toe, Complete, Open Approach (09/08/23) Detachment at Right Foot, Partial 1st Ray, Open Approach (03/01/20) Detachment at Right Foot, Partial 2nd Ray, Open Approach (03/01/20) Detachment at Right Foot, Partial 3rd Ray, Open Approach (03/01/20) Detachment at Right Foot, Partial 4th Ray, Open Approach (03/01/20) Detachment at Right Foot, Partial 5th Ray, Open Approach (03/01/20) Drainage of Right Pleural Cavity, Percutaneous Approach (01/14/21) Drainage of Spinal Canal, Percutaneous Approach, Diagnostic (09/05/24) Excision of Left Foot Muscle, Open Approach (01/14/24) Excision of Left Foot Skin, External Approach (10/08/23) Excision of Left Foot Subcutaneous Tissue and Fascia, Open Approach (10/29/24) Excision of Right Foot Skin, External Approach (07/31/24) Excision of Stomach, Pylorus, Via Natural or Artificial Opening Endoscopic, Diagnostic (08/27/22) Fluoroscopy of Spinal Cord (09/05/24) Fluoroscopy of Superior Vena Cava, Guidance (08/14/22) Insertion of Endotracheal Airway into Trachea, Via Natural or Artificial Opening (11/10/23) Insertion of Infusion Device into Right Atrium, Percutaneous Approach (02/25/24) Insertion of Infusion Device into Superior Vena Cava, Percutaneous Approach (05/25/24) Insertion of Infusion Device into Upper Vein, Percutaneous Approach (01/14/24) Insertion of Tunneled Vascular Access Device into Chest Subcutaneous Tissue and Fascia, Percutaneous Approach (05/25/24) Introduction of Other Thrombolytic into Peripheral Vein, Percutaneous Approach (09/05/24) Introduction of Vasopressor into Peripheral Vein, Percutaneous Approach (11/10/23) Isolation (11/10/23) Performance of Urinary Filtration, Intermittent, Less than 6 Hours Per Day (12/10/24) Removal of Infusion Device from Great Vessel, External Approach (01/14/21) Removal of Infusion Device from Great Vessel, Percutaneous Approach (05/25/24) Removal of Infusion Device from Heart, External Approach (01/14/24) Removal of Tunneled Vascular Access Device from Trunk Subcutaneous Tissue and Fascia, Open Approach (05/25/24) Respiratory Ventilation, Greater than 96 Consecutive Hours (11/10/23) Transfusion of Nonautologous Red Blood Cells into Peripheral Vein, Percutaneous Approach (11/10/23) Ultrasonography of Superior Vena Cava, Guidance (02/25/24) Labs on day of discharge: Laboratory Results - last 24 hr 01/07/25 01/07/25 01/08/25 15:51 20:41 05:44 WBC 8.0 RBC 2.47 L Hgb 7.7 L Hct 22.8 L MCV 92.3 MCH 31.2 MCHC 33.8 RDW 14.3 Plt Count 95 L MPV 12.4 H Immature Gran % (Auto) 0.9 H Neut % (Auto) 65.0 Lymph % (Auto) 11.8 L [place] % (Auto) 19.5 H Eos % (Auto) 2.4 Baso % (Auto) 0.4 Lymph # (Auto) 0.9 L [place] # (Auto) 1.6 H Eos # (Auto) 0.2 Baso # (Auto) 0.0 Abs Immat Gran (auto) 0.07 H Absolute Neuts (auto) 5.2 Absolute Nucleated RBC 0.000 Nucleated RBC % (auto) 0.0 Smear Tech's Comments VERIFIED Sodium 134 L Potassium 4.6 D Chloride 96 Carbon Dioxide 23 Anion Gap 20 BUN 35 H Creatinine 6.75 H* Estim Creat Clear Calc 12.7 Estimated GFR 7 POC Glucose 88 90 Random Glucose 77 Calcium 8.8 D Total Bilirubin 0.7 AST 46 H ALT 6 Alkaline Phosphatase 200 H Total Protein 7.1 Albumin 3.6 01/08/25 09:59 WBC RBC Hgb Hct MCV MCH MCHC RDW Plt Count MPV Immature Gran % (Auto) Neut % (Auto) Lymph % (Auto) [place] % (Auto) Eos % (Auto) Baso % (Auto) Lymph # (Auto) [place] # (Auto) Eos # (Auto) Baso # (Auto) Abs Immat Gran (auto) Absolute Neuts (auto) Absolute Nucleated RBC Nucleated RBC % (auto) Smear Tech's Comments Sodium Potassium Chloride Carbon Dioxide Anion Gap BUN Creatinine Estim Creat Clear Calc Estimated GFR POC Glucose 80 Random Glucose Calcium Total Bilirubin AST ALT Alkaline Phosphatase Total Protein Albumin Discharge Plan Discharge Anticipated Discharge Date/Time: 01/08/25 15:24 Patient Disposition: Home Health Service Discharge Diagnosis: Chronic osteomyelitis status post left BKA Referrals: [facility] [Provider Group, Endocrinology] - 1 Week [place] [Outside] - 1 Week Referral Note: Home services for nursing and physical therapy- a nurse will call you to set up resumption visit [facility] Wound Care [Outside] - 1 Week Tu Rajput MD [Physician, General Surgery] - 1 Week Genevieve Gtz MD [Primary Care Provider, Internal Medicine] - 1 Week Fernando Siddiqi MD [Physician, Nephrology] - 1 Week Discharge Medications: New methocarbamol 750 mg Tablet 750 mg PO QID 30 Days Qty: 120 0RF oxycodone 10 mg tablet 10 mg PO Q8H PRN (Reason: pain) 5 Days Qty: 10 0RF Rx Instructions: Partial Fill upon patient request. lidocaine [AsperFlex (lidocaine)] 4 % adhesive patch,medicated 1 patch topical Q8-12H PRN (Reason: pain) 5 Days Qty: 10 0RF methocarbamol 500 mg tablet 500 mg PO Q8H 5 Days Qty: 15 0RF Continued carvedilol 12.5 mg Tablet 12.5 mg PO BID 90 Days Qty: 180 0RF Protocol: Hold for SBP/HR < HOLD for SBP < : 90 HOLD for HR < : 60 hydralazine 50 mg Tablet 50 mg PO TID 90 Days Qty: 270 0RF Protocol: Hold for SBP< HOLD for SBP < : 90 (DME) FreeStyle Lite Strips Strip Qty: 100 0RF Rx Instructions: Test four times a day or as directed. (DME) blood-glucose meter [FreeStyle Lite Meter] Kit Qty: 1 0RF Rx Instructions: As Directed (DME) pen needle, diabetic 32 gauge x 1/4 needle Qty: 100 0RF Rx Instructions: Use four times a day or as directed. (DME) lancets [FreeStyle Lancets] 28 gauge misc Qty: 100 0RF Rx Instructions: Test four times a day or as directed. oxycodone 5 mg tablet 5 mg PO Q8H PRN (Reason: pain) Qty: 15 0RF Rx Instructions: Partial Fill upon patient request. hydromorphone [Dilaudid] 4 mg tablet 4 mg PO Q6H PRN (Reason: pain) Qty: 20 0RF Rx Instructions: Partial Fill upon patient request. metoclopramide HCl [Reglan] 10 mg tablet 10 mg PO Q6H PRN (Reason: nausea and vomiting) Qty: 14 0RF lidocaine 5 % adhesive patch,medicated 1 patch topical DAILY PRN (Reason: Pain) nitroglycerin 0.4 mg tablet, sublingual 0.4 mg sublingual DIRECTED PRN (Reason: Angina) albuterol sulfate [Ventolin HFA] 90 mcg/actuation HFA aerosol inhaler 2 puff inhalation Q6H PRN (Reason: wheezing) calcium carbonate [Tums] 200 mg calcium (500 mg) Tablet,Chewable 200 mg PO TIDWM PRN (Reason: Acid Reflux) Changed acetaminophen 325 mg tablet 975 mg PO Q4H PRN (Reason: mild pain) 30 Days Qty: 90 0RF Discharge Orders: Discharge Order (Routine); Ordered 01/08/25 Ordered By: aPdmini Marcelino Diet: low K,phos,Na diet,renal Activity on Discharge: deferred STR, PT OT Stand Alone Forms: Patient Portal Discharge page Print Language: Bangladeshi Activity Restrictions/Additional Instructions: Dry dressings to the BKA site, wrapped with Kerlix and Izaiah bandage daily Care Plan Goals: Patient was advised splint, deferred Patient deferred short-term rehab PTOT, DVT prophylaxis, medication, blood pressure meds and other medications prescribed it will intermittently We will documented in the chart Patient advised to follow up with her hemodialysis sessions as per her schedule 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 Q 8 scheduled Given that we are short of OxyContin, I have given her oxycodone 10 mg Q 8 p.r.n.-10 pills for 5 days-if you were to need more she would have to follow up with the PCP I have given her muscle relaxant Robaxin, lidocaine patches Advised strict blood pressure and blood sugar control Advised strict low-sodium, low K, low phos diet-adherence is very important Health Concerns: See above Plan of Treatment: See above Assessment: See above Patient Instructions: Splint Care (DC), Physical Therapy Instructions (GEN)
--- NOTE | 2025-01-08 16:07 | PC.NURSE ---
Wound care per Order, pt tolerated well, no s/s infection, wound edges approximated with sutures.
--- NOTE | 2025-01-08 16:29 | P.F2F_ITS ---
Service Date Service Date: 01/08/25 Encounter Date of encounter: 01/08/25 Reasons for Services Signs and symptoms assessed: VNA needs Reason for senior care: diabetic teaching, medication management and medication treatment Homebound: Leaving the home is medically contraindicated at this time without the asist of a device and/or another person due th the listed conditions above and below. Reason homebound: unsteady gait / fall risk and poor balance / fall risk Certification: Based on the above findings, I certify that this patient is confined to the home and needs intermittent senior care care, physical therapy and/or speech therapy, or continues to need occupational therapy. The patient is under my care, and I have initiated the establishment of the plan of care. The patient will be followed by a physician who will periodically review the plan of care. Time Spent With Patient Time: Total time managing care of this patient today ____ minutes.
--- NOTE | 2025-01-08 17:28 | MHC.RECOVRN ---
Consult received today by Addiction Medicine for methadone or buprenorphine . Tw met with pt in -, however pt was in the process of being discharged. When TW mentioned reason for the consult pt was confused and stated she does not use opiates. She then stated her provider writes her prescriptions for oxycodone for pain . Explained to pt that oxycodone is an opiate medication. Pt states she takes her medication as prescribed and does not have a drug problem . ?Pt declines need for recovery support or resources including intervention, MOUD, or outpatient appt for treatment related to AUD at this time. Review of [facility] reflects pt does indeed receive Oxycodone 5mg for at least the past year.
== END 2025-01-08 17:33 | disposition home health service (06) | DRG 239 ==
LOC: HO.ED 11:29 → HO.EDOVER 13:27 → HO.S3 15:35
PROVIDERS: Nurse Practitioner; Physician Assistant; Student in an Organized Health Care Education/Training Program; Surgery; Admitting Provider Hospitalist; Emergency Provider Emergency Medicine; PCP Student in an Organized Health Care Education/Training Program; Visit Provider Student in an Organized Health Care Education/Training Program
PROC: 0Y6J0Z1 Detachment at Left Lower Leg, High, Open Approach (ICD-10-PCS; CPT 27880; principal; 2025-01-05 13:30)
DX: E11.51 Type 2 diabetes mellitus with diabetic peripheral angiopathy without gangrene (principal); N18.6 End stage renal disease; I13.2 Hypertensive heart and chronic kidney disease with heart failure and with stage 5 chronic kidney disease, or end stage renal disease; F11.20 Opioid dependence, uncomplicated; L97.429 Non-pressure chronic ulcer of left heel and midfoot with unspecified severity; L97.419 Non-pressure chronic ulcer of right heel and midfoot with unspecified severity; M86.672 Other chronic osteomyelitis, left ankle and foot; I50.22 Chronic systolic (congestive) heart failure; I42.9 Cardiomyopathy, unspecified; G35.A Relapsing-remitting multiple sclerosis; D63.1 Anemia in chronic kidney disease; E11.69 Type 2 diabetes mellitus with other specified complication; E11.22 Type 2 diabetes mellitus with diabetic chronic kidney disease; Z99.2 Dependence on renal dialysis; E87.5 Hyperkalemia; W19.XXXA Unspecified fall, initial encounter; E11.40 Type 2 diabetes mellitus with diabetic neuropathy, unspecified; E11.65 Type 2 diabetes mellitus with hyperglycemia; G89.29 Other chronic pain; H54.8 Legal blindness, as defined in USA; I16.0 Hypertensive urgency; Z91.148 Patient's other noncompliance with medication regimen for other reason; Z91.158 Patient's noncompliance with renal dialysis for other reason; Z79.899 Other long term (current) drug therapy
CPT/HCPCS: 36415; 70450; 72125; 73630; 80048; 80053; 80076; 80307; 82668; 82947; 82985; 83036; 83605; 83735; 84132; 85025; 85027; 85652; 86140; 87040; 88307; 88311; 90999; 93005; 99285; J0131; J0360; J0613; J0665; J0690; J0737; J1171; J1200; J1610; J1920; J2003; J2250; J2371; J2405; J2543; J2704; J2765; J3010

== ENCOUNTER → 2024-12-22 09:05 | Outpatient (BNV) | payer OTHER, SELFPAY | PROVIDERS: Admitting Provider Hospitalist; Emergency Provider Emergency Medicine; PCP Student in an Organized Health Care Education/Training Program; Visit Provider Internal Medicine | DX: I45.10 Unspecified right bundle-branch block (principal) | CPT/HCPCS: 93010 ==

== ENCOUNTER → 2024-12-22 09:05 | Outpatient (BNV) | payer OTHER, SELFPAY | PROVIDERS: PCP Student in an Organized Health Care Education/Training Program; Visit Provider Radiology Diagnostic Ultrasound | DX: M54.2 Cervicalgia (principal); S09.90XA Unspecified injury of head, initial encounter; J32.0 Chronic maxillary sinusitis; W18.39XA Other fall on same level, initial encounter; M79.89 Other specified soft tissue disorders | CPT/HCPCS: 70450; 72125; 73630 ==

== ENCOUNTER → 2024-12-22 13:11 | Outpatient (BNV) | payer OTHER, SELFPAY | PROVIDERS: Admitting Provider Hospitalist; Emergency Provider Emergency Medicine; PCP Student in an Organized Health Care Education/Training Program; Visit Provider Hospitalist | DX: M86.60 Other chronic osteomyelitis, unspecified site (principal); E11.9 Type 2 diabetes mellitus without complications; N18.6 End stage renal disease; Z99.2 Dependence on renal dialysis | CPT/HCPCS: 99232 ==

== ENCOUNTER → 2024-12-22 13:11 | Outpatient (BNV) | payer OTHER, SELFPAY | PROVIDERS: Admitting Provider Hospitalist; Emergency Provider Emergency Medicine; PCP Student in an Organized Health Care Education/Training Program | DX: M86.60 Other chronic osteomyelitis, unspecified site (principal) | CPT/HCPCS: 99232 ==

== ENCOUNTER 2025-01-11 12:17 | Inpatient (IN) | payer OTHER, SELFPAY ==
--- OUTSIDE RECORDS SUMMARY | 2025-01-10 12:30 | XMS_ITS | Encounter Summary ---
Author Organization [facility] Address [address] [place] [address] Phone Care Team Providers Care Podiatry Teacher Name Role Phone Genevieve Gtz MD Primary Care Pro vider Reason for Visit * Auth/Cert (Routine) Specialty Diagnoses / Procedures Referred By Contac t Referred To Contact Referral ID Status Reason Start Date Expiration Date Visits Re quested Visits Authorized [id number] 1 1 Encounter Details Date Type Department Care Team ([facility] Contact Info) Description 01/10/2025 12:30 PM EST Home Care Visit [facility] [address] [place] [phone] Emi Sommer, KIRIT [address] [place] [address] [email or web address] SN OASIS START OF CARE (SOC) Social History Tobacco Use Types Packs/Day Years Used Date Smoking Tobacco: Never Assessed Home Health Assessment: Transportation Answer Date Recorded Lack of Transportation (Medical) No 01/10/2025 Lack of Transportation (Non-Medical) No 01/10/2025 Patient Unable or Declines to Respond No 01/10/2025 Education Answer Date Recorded Are you interested [...] on file documented as of this encounter Last Filed Vital Signs Vital Sign Reading Time Taken Comments Blood Pressure 150/72 01/10/2025 12:16 PM EST Pulse 98 01/10/2025 12:16 PM EST Temperature 36.9 C (98.5 F) 01/10/2025 12:16 PM EST Respiratory Rate 16 01/10/2025 12:16 PM EST Oxygen Saturation 95% 01/10/2025 12:16 PM EST Inhaled Oxygen Concentration - - Weight - - Height - - Body Mass Index - - documented in this encounter Plan of Treatment Upcoming Encounters Date Type Department Care Team (Late st Contact Info) Description 01/12/2025 1:30 AM EST Appointment [facility] [address] [place] [address] Roman Mcclure RN [address] [place] [phone] 01/16/2025 2:30 AM EST Appointment [facility] [address] [place] [address] Roman Mcclure RN [address] [place] [phone] 01/19/2025 3:00 AM EST Appointment [facility] [address], [place] [phone] Roman Mcclure RN [address] [place] [phone] 01/21/2025 2:30 AM EST Appointment [facility] [address] [place] [address] Roman Mcclure RN [address] [place] [phone] 01/23/2025 2:30 AM EST Appointment [facility] [address] [place] [phone] Roman Mcclure RN [address] [place] [address] 01/26/2025 2:30 AM EST Appointment [facility] [address] [place] [phone] Roman Mcclure RN [address] [place] [address] 01/28/2025 2:30 AM EST Appointment [facility] [address] [place] [phone] Roman Mcclure RN [address] [place] [address] 01/30/2025 2:30 AM EST Appointment [facility] [address] [place] [phone] Roman Mcclure RN [address] [place] [address] 02/04/2025 2:00 AM EST Appointment [facility] [address] [place] [phone] Roman Mcclure RN [address] [place] [address] 02/11/2025 1:30 AM EST Appointment [facility] [address] [place] [address] Roman Mcclure RN [address] [place] [address] 02/18/2025 1:00 AM EST Appointment [facility] [address], [place] [phone] Roman Mcclure RN [address] [place] [address] 02/25/2025 12:30 AM EST Appointment [facility] [address], [place] [phone] Roman Mcclure RN [address] [place] [address] 03/04/2025 Appointment [facility] [address] [place] [address] Roman Mcclure RN [address] [place] [address] 03/09/2025 Appointment [facility] [address], [place] [phone] Roman Mcclure RN [address] [place] [address] documented as of this encounter Visit Diagnoses Not on filedocumented in this encounter Home Health Visit - Care Plan Visit Details Visit Type -SN OASIS START O F CARE (SOC) Discipline -Assisted Problems Problem Description Start Date Status Goals Interve ntions HH - Wound Disciplines: All Active Home Health Disciplines, Assisted 01/10/2025 Active 1 goal linked to scheduled/documen [place] intervention 2 problem interventions scheduled/document ed in this visit 3 goal interventions scheduled/document ed in this visit HH - Infusion Therapy Disciplines: Assisted 01/10/2025 Active 1 goal linked to scheduled/documen [place] intervention 1 goal intervention scheduled/document ed in this visit HH - Cardiovascular Function - Impaired Disciplines: All Active Home Health Disciplines 01/10/2025 Active 1 goal linked to scheduled/documen [place] intervention 1 goal intervention scheduled/document ed in this visit HH - Diabetes Disciplines: All Active Home Health Disciplines 01/10/2025 Active 1 goal linked to scheduled/documen [place] intervention 3 goal interventions scheduled/document ed in this visit HH - Depression - Actual or Risk of Impairment Disciplines: All Active Home Health Disciplines 01/10/2025 Active 1 goal linked to scheduled/documen [place] intervention 1 goal intervention scheduled/document ed in this visit HH - Anxiety - Actual or Risk of Impairment Disciplines: All Active Home Health Disciplines 01/10/2025 Active 1 goal linked to scheduled/documen [place] intervention 1 goal intervention scheduled/document ed in this visit HH - Medication Management Disciplines: All Active Home Health Disciplines 01/10/2025 Active 1 goal linked to scheduled/documen [place] intervention 2 goal interventions scheduled/document ed in this visit HH - Health Maintenance Disciplines: All Active Home Health Disciplines 01/10/2025 Active 1 goal linked to scheduled/documen [place] intervention 3 goal interventions scheduled/document ed in this visit HH - Focus of Care and Teaching Disciplines: All Active Home Health Disciplines w/RD 01/10/2025 Active 1 goal linked to scheduled/documen [place] intervention 1 goal intervention scheduled/document ed in this visit HH - Advance Care Planning Disciplines: All Active Home Health Disciplines 01/10/2025 Active 1 goal linked to scheduled/documen [place] intervention 1 goal intervention scheduled/document ed in this visit HH - Emergency Planning - Knowledge of Disciplines: All Active Home Health Disciplines 01/10/2025 Active 1 goal linked to scheduled/documen [place] intervention 3 goal interventions scheduled/document ed in this visit HH - Infection - Actual or Risk of Disciplines: All Active Home Health Disciplines 01/10/2025 Active 1 goal linked to scheduled/documen [place] intervention 2 goal interventions scheduled/document ed in this visit HH - Falls - Risk of Disciplines: All Active Home Health Disciplines 01/10/2025 Active 1 goal linked to scheduled/doc[place] intervention 1 goal intervention scheduled/document ed in this visit HH - Standard of Care Disciplines: All Active Home Health Disciplines 01/10/2025 Active 1 goal linked to scheduled/documen [place] intervention 7 goal interventions scheduled/document ed in this visit HH - Pain Disciplines: All Active Home Health Disciplines 01/10/2025 Active 1 goal linked to scheduled/documen [place] intervention 2 goal interventions scheduled/document ed in this visit Goals Goal Associated Problem Outcome Goal Met? Visit Notes HH - Demonstrate/verbalize wound care management, wound/lesion will be free from complications HH - Wound No HH - Device will remain patent and free from infection, demonstrate/verbalize management of infusion therapy and device HH - Infusion Therapy No HH - Demonstrate/verbalize management of cardiac disease, treatments, and s/s of complications HH - Cardiovascular Function - Impaired No HH - Knowledge and management of diabetes. HH - Diabetes No HH - Demonstrate/verbalize improvement in depressive symptoms HH - Depression - Actual or Risk of Impairment No HH - Decrease anxiety through knowledge and management of triggers. HH - Anxiety - Actual or Risk of Impairment No HH - Safe medication management, avoid unnecessary harm related to medication errors and/or interactions HH - Medication Management No HH - Patient preferences will be utilized to achieve optimal wellness and home safety. HH - Health Maintenance No HH - Communication and collaboration to achieve patient goals HH - Focus of Care and Teaching No HH - Verbalize awareness of Advance Care Planning. HH - Advance Care Planning No HH - Knowledge of options for managing care in the event of an emergency related situation. HH - Emergency Planning - Knowledge of No HH - Patient will have no new infection; any new infection that occurs will be identified and treated promptly; existing infection will resolve without complication Description: Patient and caregiver(s) will demonstrate understanding of infection prevention, monitoring, and treatment as appropriate HH - Infection - Actual or Risk of No HH - Knowledge and management of fall prevention measures. HH - Falls - Risk of No HH - Achieve care management for a safe to home/community discharge from homecare HH - Standard of Care No HH - Frequency of pain interfering with patient's activity or movement will improve with activity or movement by discharge. Description: Pain will be managed over the course of care. Patient's acceptable level of pain is 3 - daily, but not constantly. HH - Pain No Interventions Intervention Associated Problem/Goal Status Variance Visit Notes HH - Measure wound weekly and as needed Problem:HH - Wound Goal:HH - Demonstrate/verbalize wound care management, wound/lesion will be free from complications Performed HH - I/E wound management Description: management and care, nutrition to promote wound healing, s/s of complications, s/s of infection and wound dehiscence Problem:HH - Wound Goal:HH - Demonstrate/verbalize wound care management, wound/lesion will be free from complications Performed HH - Wound care: Description: Left BKA - cleanse with ns, apply gauze, wrap with kerlix and gisela bandage. Change daily and prn. CG to perform on non-vna days. Problem:HH - Wound Goal:HH - Demonstrate/verbalize wound care management, wound/lesion will be free from complications Performed HH - Wound care: Description: Right anterior foot - cleanse with ns, apply silver alginate, cover with gauze and wrap with kerlix. Change daily and prn. CG to perform on non-vna days. Problem:HH - Wound Performed HH - Wound care: Description: Right plantar foot - cleanse with ns, apply silver alginate, cover with gauze and wrap with kerlix. Change daily and prn. CG to perform on non-vna days. Problem:HH - Wound Performed HH - Central/Midline IV management: Description: central line managed by dialysis center Problem:HH - Infusion Therapy Goal: - Device will remain patent and free from infection, demonstrate/verbalize management of infusion therapy and device Performed HH - I/E cardiovascular function Description: cardiac disease management, energy conservation and prescribed activity level/restrictions and oxygen therapy, equipment use and safety Problem: - Cardiovascular Function - Impaired Goal:HH - Demonstrate/verbalize management of cardiac disease, treatments, and s/s of complications Performed HH - I/E diabetes management Description: safety precautions with neurosensory deficits and s/s of hyper/hypoglycemia and self-monitoring Problem: - Diabetes Goal:HH - Knowledge and management of diabetes. Performed HH - Diabetic foot care including monitoring for the presence of skin lesions on the lower extremities and patient/caregiver education on proper foot care Problem: - Diabetes Goal:HH - Knowledge and management of diabetes. Performed HH - Assess blood sugar control, hypoglycemia/hypergly cemia and diabetes-associated conditions (e.g., peripheral neuropathy) Problem: - Diabetes Goal:HH - Knowledge and management of diabetes. Performed HH - Assess s/s of depression Problem:HH - Depression - Actual or Risk of Impairment Goal:HH - Demonstrate/verbalize improvement in depressive symptoms Performed HH - I/E anxiety management, causes, treatment options and coping mechanisms Problem:HH - Anxiety - Actual or Risk of Impairment Goal:HH - Decrease anxiety through knowledge and management of triggers. Performed HH - I/E medication management: administration, purpose, dosages, preparation, setup, scheduling, side effects, food/drug interactions, and potential complications as indicated Description: Update patient's copy of medication list as needed. Problem:HH - Medication Management Goal: - Safe medication management, avoid unnecessary harm related to medication errors and/or interactions Performed HH - Complete medication review every visit and medication reconciliation as indicated. Pharmacy information: Description: [facility] [address] in [place] Problem:HH - Medication Management Goal:HH - Safe medication management, avoid unnecessary harm related to medication errors and/or interactions Performed HH - Assess the patient's care preferences, goals, and strengths, the assessment of the patient's mental, psychosocial, and cognitive status were completed, and the following were identified: Description: call prior to visit increase strength/endurance and managing symptoms and be treated at home housing stability and adequate support systems in place Problem:HH - Health Maintenance Goal:HH - Patient preferences will be utilized to achieve optimal wellness and home safety. Performed HH - Assess immunizations Description: pt states she does not get vaccinations Problem:HH - Health Maintenance Goal:HH - Patient preferences will be utilized to achieve optimal wellness and home safety. Performed HH - I/E immunizations Problem:HH - Health Maintenance Goal:HH - Patient preferences will be utilized to achieve optimal wellness and home safety. 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 Other pmh includes cardiomyopathy with EF of 41%, MS, anemia, depressio n/anxiety, legally blind, cdiff, chronic opioid dependence. Pt is alert and oriented x3. Pt is legally blind. Lives in 1st floor apartment with her sister Mary. [employer] services through [facility]; Mary is her avionics systems repairer. Transportation provided through [facility]. Dialysi s . Central line in place to right chest which is managed by dialysis center. Pt reports no falls since returning home. Denies dizziness. States pain is well controlled on current pain regimen; prn oxycodone, dilaudid, and tylenol. Sob with mod exertion; does have prn o2. No coughing or cp. Vss. Appetite fair. No gi/gu issues reported. Medications reviewed - pt has good understanding of med regimen. States Robaxin was filled through hosp pharmacy and not covered by insurance; [facility] ; sn will f/u with MD to have script sent to correct pharmacy. L BKA incision with scant sanguinous drainage - sutures in place; dcd applied. Pt also has 2 wounds on her right foot, both appear to be healing well with scant drainage. Pt's sister able to provide wound care on non-vna days. Pt will f/u with surgeon 01/14. Identified skills to be provided and taught: wound/skin care, dm mgmt, cvp, home safety, med mgmt, pain mgmt, s/sx to report The identified person that we will be teaching is elisa ent and caregiver Other disciplines ordered to assist patient in meeting goals: PT Anticipated number of visits to meet goals: 5-7 Instruction Provided to: patient and caregiver Response to Instruction/Teaching: Is partially able to teach back to pics as evidenced by needs further teaching & reinforcement. Plan for Next Visit Specific Focus & Education Needed: wound care, dm mgmt, pain mgmt, med mgmt, cvp, safety New Orders: Updated Discharge Plan: d/c when goals met/pt stable HH - I/E advance directive information. Written information provided to the patient and caregiver, as indicated. The patient has: Description: the patient has not selected an advanced directive Problem:HH - Advance Care Planning Goal:HH - Verbalize awareness of Advance Care Planning. Performed HH - I/E management of care in an urgent or emergency (ER) situation: When to call your Home Care Team/1, ER plans, supplies, evacuation, when to contact local ER officials and how to stay informed Problem:HH - Emergency Planning - Knowledge of Goal:HH - Knowledge of options for managing care in the event of an emergency related situation. Performed HH - Emergency planning assessment: the emergency plan, supplies needed, emergency contact numbers and an evacuation plan were reviewed Description: Patient and Caregiver is/are knowledgeable of emergency plans. Problem:HH - Emergency Planning - Knowledge of Goal:HH - Knowledge of options for managing care in the event of an emergency related situation. Performed HH - Establish an individualized emergency plan: Description: Evacuation Plan is: stay home with family/cg support Priority Medical Needs are: N/A A triage code has been assigned. A triage code and emergency plan will be reassessed for continued accuracy. Specific risks based on location: loss of utilities an d severe storms An emergency supply list has been provided. Problem:HH - Emergency Planning - Knowledge of Goal:HH - Knowledge of options for managing care in the event of an emergency related situation. Performed HH - I/E infection Description: s/s of infection Problem:HH - Infection - Actual or Risk of Goal:HH - Patient will have no new infection; any new infection that occurs will be identified and treated promptly; existing infection will resolve without complication Performed HH - Assess infection risk and s/s Problem:HH - Infection - Actual or Risk of Goal:HH - Patient will have no new infection; any new infection that occurs will be identified and treated promptly; existing infection will resolve without complication Performed HH - I/E fall prevention measures Description: diagnosis/age related changes/prior history of falls: symptoms and side effects of illness/injury/histor y of falls placing patient at increased risk for falls. may include management of dizziness/orthostasis , environmental hazards: modification of enviro nment to include clear walkways, secure animals, and move frequently used items within reach, use of equipment, impaired functional mobility: supervision for mobility/activity, appropriate footwear and as indicated safe use of assistive device(s) and jamar n affecting level of function: impact of pain on an increased risk of falls Problem: - Falls - Risk of Goal:HH - Knowledge and management of fall prevention measures. Performed HH - Assess vital signs, pulse oximetry, pain, and as indicated, orthostatic vital signs Description: use agency-specific parameters Problem:HH - Standard of Care Goal:HH - Achieve care management for a safe to home/community discharge from homecare Performed HH - Assess skin integrity Problem:HH - Standard of Care Goal:HH - Achieve care management for a safe to home/community discharge from homecare Performed HH - I/E management of skin integrity and non-wound impairment Description: s/s of pressure injury, pressure reduction, and injury prevention measures and skin care Problem:HH - Standard of Care Goal:HH - Achieve care management for a safe to home/community discharge from homecare Performed HH - Assess safety needs of patient (other than falls) Problem:HH - Standard of Care Goal:HH - Achieve care management for a safe to home/community discharge from homecare Performed HH - I/E discharge plan Problem:HH - Standard of Care Goal:HH - Achieve care management for a safe to home/community discharge from homecare Performed HH - Complete Prasad scale at SOC and weekly Problem:HH - Standard of Care Goal:HH - Achieve care management for a safe to home/community discharge from homecare Performed HH - Assess weight Problem:HH - Standard of Care Goal:HH - Achieve care management for a safe to home/community discharge from homecare Performed HH - Assess pain Problem:HH - Pain Goal:HH - Frequency of pain interfering with patient's activity or movement will improve with activity or movement by discharge. Performed HH - I/E pain management Problem:HH - Pain Goal:HH - Frequency of pain interfering with patient's activity or movement will improve with activity or movement by discharge. Performed documented in this encounter Care Teams Podiatry Teacher Relationship Specialty Start Date End Date Genevieve Gtz MD [address] [place] [phone] PCP - General Internal Medicine 11/06/24 documented as of this encounter Additional Source Comments The information contained in this document represents components of the legal health record. It is not the complete legal health record.[facility]
--- NOTE | ~2025-01-11 | XR_ITS ---
CLINICAL HISTORY: SOB 1 view chest x-ray. Comparison: None Findings: No consolidation or effusion. Cardiac and mediastinal contours appear stable. Central line is re-identified in stable position, tip overlying right atrium.. Bones unremarkable. Impression: 1. No acute pulmonary disease. This document has been electronically signed by: Anderson Beckford MD on 01/11/2025 14:24:08
--- NOTE | 2025-01-11 12:24 | ECG_ITS ---
Test Reason : CP Blood Pressure : */* mmHG Vent. Rate : 97 BPM Atrial Rate : 97 BPM P-R Int : 168 ms QRS Dur : 156 ms QT Int : 424 ms P-R-T Axes : 56 -37 85 degrees QTcB Int : 538 ms Normal sinus rhythm Possible Left atrial enlargement Left axis deviation Right bundle branch block Abnormal ECG When compared with ECG of 22-Dec-2024 09:44, No significant change was found Referred By: Generic ED Physician Electronically Signed By: JASKARAN COOL
[2025-01-11 12:32] VITALS: BP 153/76; BP 160/82; PULSE 100; PULSE 96; RESP 18; TEMP 36.8; O2SAT 96; BMI 28.5
--- OUTSIDE RECORDS SUMMARY | 2025-01-11 13:01 | XMS_ITS | Clinical Summary ---
Author Organization [address] [place] [address] Address [address] [place] [address] Phone Care Team Providers Care Laborer/Key Man Name Role Phone Betty Nugent MD Primary Care Provider Surgical History Surgery Date Site/Laterality Comments SECTION [...] Health Screening 09/06/2024 COVID-19 Vaccine ( - 2024-2 6 season) 2024 Influenza Vaccine (#1) 2024 RSV [...] complete this topic Insurance MEDICAID - [facility] Member Subscriber Plan / Payer (Ef fective 2023-Present) Name:ROWAN MULTANI Relation to Subscriber:Self Name:Rowan Multani Payer ID:[id number] Group ID:[id number] Type:Not on file Address: [address] [place] [address] Care Teams Laborer/Key Man Relationship Specialty Start Date End Date Betty Nugent MD [address] [place] [address] PCP - General Internal Medicine 01/10/18
--- OUTSIDE RECORDS SUMMARY | 2025-01-11 13:01 | XMS_ITS | Clinical Summary ---
Author Organization [facility] Address [address] [place] [address] Phone Care Team Providers Care Research Nurse Name Role Phone Genevieve Gtz MD Primary Care Pro vider Allergies Active Allergy Reactions Criticality Noted Date Comments Azithromycin Hives Medium 01/10/2025 Gabapentin Swelling High 01/10/2025 facial swelling Morphine Itching Medium 01/10/2025 Tramadol Swelling High 01/10/2025 facial swelling Vancomycin Itching Medium 01/10/2025 Medications OXYGEN-AIR DELIVERY SYSTEMS MISC 2 L by Intranasal route as needed (sob). 5 Active methocarbamoL (ROBAXIN) 750 MG tablet Take 750 mg by mouth 4 (four) times a day. Active oxyCODONE HCl 10 mg Tab Take 10 mg by mouth every 8 (eight) hours as needed (pain). Active lidocaine (LIDODERM) 5 % Place 1 patch onto the skin daily as needed (pain). Active carvedilol (COREG) 12.5 MG tablet Take 12.5 mg by mouth 2 (two) times a day with meals. hold SBP <90 hold HR <60 5 Active hydrALAZINE (APRESOLINE) 50 MG tablet Take 50 mg by mouth 3 (three) times a day. hold SBP <90 hold HR <60 5 Active HYDROmorphone (DILAUDID) 4 MG tablet Take 4 mg by mouth every 6 (six) hours as needed for pain (specific location in comments). 11/15/202 5 Active metoclopramide HCl (REGLAN) 10 MG tablet Take 10 mg by mouth every 6 (six) hours as needed for nausea or vomiting. Active nitroglycerin (NITROSTAT) 0.[address] 0.4 mg under the tongue every 5 (five) minutes as needed for chest pain. Active albuterol 90 mcg/actuation inhaler Inhale 2 puffs into the lungs every 6 (six) hours as needed for shortness of breath/dyspnea or wheezing. Active calcium carbonate 500 mg (200 mg elemental) chewable tablet Take 1 tablet by mouth 3 (three) times a day as needed for heartburn. Active acetaminophen (TYLENOL) 325 mg tablet Take 975 mg by mouth every 4 (four) hours as needed for pain (specific location in comments). Active Encounters Date Type Department Care Team Description 01/10/2025 12:30 PM EST [facility] [address] [place] [address] Emi Sommer RN SN OASIS START OF CARE (SOC) 01/10/2025 Plan of Care [facility]ation [facility] [address] [place] [address] 12/22/2024 Orders Only [facility] [address] [place] [address] Homehealth, Interface Provider, 12/22/2024 [facility] [address] [place] [address] Angela Foster RN NON ADMIT HOME HEALTH VISIT 12/21/2024 Home Care Visit [facility] [address] [place] [address] Becca Saenz, RN CASE COMMUNICATION 12/20/2024 Home [facility] Visit [facility] [address] [place] [address] Freida Mohan, RN CASE COMMUNICATION 12/20/2024 Home Care Visit [facility] [address] [place] [phone] Becca Saenz, KIRIT CASE COMMUNICATION 12/19/2024 Home Care Visit [facility] [address] [place] [phone] Angela Foster RN CASE COMMUNICATION 12/15/2024 Orders Only [facility] [address] [place] [phone] Homehealth, Interface ProviderMD 11/16/2024 Home Care Visit [facility] [address] [place] [phone] Becca Saenz, KIRIT NON ADMIT HOME HEALTH VISIT 11/14/2024 Home Care Visit [facility] [address] [place] [phone] Angela Foster RN CASE COMMUNICATION 11/10/2024 Home Care Visit [facility] [address] [place] [phone] Angela Foster, RN TELEPHONE ENCOUNTER 11/09/2024 Home Care Visit [facility] [address] [place] [phone] Becca Saenz, KIRIT CASE COMMUNICATION 11/04/2024 Orders Only [facility] [address] [place] [phone] Homehealth, Interface ProviderMD from Last 3 Months [...] Mass Index - - Plan of Treatment Upcoming Encounters Date Type Department Care Team (Late st Contact Info) Description 01/12/2025 1:30 AM EST Appointment [facility] [address] [place] [address] Roman Mcclure RN [address] [place] [address] 01/16/2025 2:30 AM EST Appointment [facility] [address] [place] [address] Roman Mcclure RN [address] [place] [address] 01/19/2025 3:00 AM EST Appointment [facility] [address] [place] [address] Roman Mcclure RN [address] [place] [address] 01/21/2025 2:30 AM EST Appointment [facility] [address] [place] [phone] Roman Mcclure RN [address] [place] [address] 01/23/2025 2:30 AM EST Appointment [facility] [address] [place] [address] Roman Mcclure RN [address] [place] [address] 01/26/2025 2:30 AM EST Appointment [facility] [address] [place] [address] Roman Mcclure RN [address] [place] [address] 01/28/2025 2:30 AM EST Appointment [facility] [address] [place] [address] Roman Mcclure RN [address] [place] [address] 01/30/2025 2:30 AM EST Appointment [facility] [address] [place] [address] Roman Mcclure RN [address] [place] [address] 02/04/2025 2:00 AM EST Appointment [facility] [address] [place] [address] Roman Mcclure RN [address] [place] [address] 02/11/2025 1:30 AM EST Appointment [facility] [address] [place] [address] Roman Mcclure RN [address] [place] [address] 02/18/2025 1:00 AM EST Appointment [facility] [address] [place] [address] Roman Mcclure RN [address] [place] [address] 02/25/2025 12:30 AM EST Appointment [facility] [address] [place] [address] Roman Mcclure RN [address] [place] [address] 03/04/2025 Appointment [facility] [address] [place] [address] Roman Mcclure RN [address] [place] [address] 03/09/2025 Appointment [facility] [address] [place] [phone] Roman Mcclure RN [address] [place] [address] Medical Devices Not on file Insurance , [address] [address] [facility] ONE CARE MEDICARE REPLACEMENT [place] [id number] [place] [address] CARE MEDICARE REPLACEMENT CARE MEDICARE REPLACEMENT [place] [place] [address] CARE MEDICARE REPLACEMENT [facility] ONE CARE MEDICARE REPLACEMENT [address] [place], [place] [facility] ONE CARE MEDICARE REPLACEMENT Care Teams Research Nurse Relationship Specialty Start Date End Date Genevieve Gtz MD [address] [place] [phone] PCP - General Internal Medicine 11/06/24 Additional Source Comments The information contained in this document represents components of the legal health record. It is not the complete legal health record.[facility]
--- OUTSIDE RECORDS SUMMARY | 2025-01-11 13:01 | XMS_ITS | Encounter Summary ---
Author Organization [facility] Address [address] [place] [phone] Phone Care Team Providers Care Metal Punch Press Operator Name Role Phone EmilyAlyssa hutchinson Primary Care Provider Unava ilable Encounter Details Date Type Department Care Team (Late st Contact Info) Description 09/23/2024 TCM in Dialysis Clinic [facility] [address] [phone] Placido Carver MD [address] [address] Social History Tobacco Use Types [...] 09/23/2024 The patient was seen for a fnei-dp-[id number] visit as part of Transitional Care Management services. Attending Social Worker Delinquency Prevention: PLACIDO CARVER MD Dialysis Location: [facility] Schedule: Shift: 2 INTERACTIVE CONTACT [...] with the patient. VISIT DIAGNOSES CPT Code 97670 - High complexity, seen within 7 days of discharge. N18.6 End stage renal disease Signed by: PLACIDO CARVER MD on 09/23/2024 at 10:14:56 PM Transcribed by: PLACIDO CARVER MD on 09/23/2024 at 10:14:56 PM documented in this encounter Plan of Treatment Not on file documented as of this encounter Visit Diagnoses Not on filedocumented in this encounter Care Teams Metal Punch Press Operator Relationship Specialty Start Date End Date Alyssa Manzano DO [address] [place] [phone] PCP - General Family Medicine 03/02/21 documented as of this encounter
--- OUTSIDE RECORDS SUMMARY | 2025-01-11 13:01 | XMS_ITS | Encounter Summary ---
Author Organization [facility] Address [address] [place] [phone] Phone Care Team Providers Care Grading Supervisor Name Role Phone EmilyAlyssa hutchinson Primary Care Provider Unava ilable Encounter Details Date Type Department Care Team (Late st Contact Info) Description 08/12/2024 TCM in Dialysis Clinic [facility] [address] [address] Placido Carver MD [address] [address] Social History Tobacco Use [...] 08/12/2024 The patient was seen for a wwir-nm-nfil visit as part of Transitional Care Management services. Attending Resident Hall Director: PLACIDO CARVER MD Dialysis Location: [facility] Schedule: Shift: 2 INTERACTIVE CONTACT Contact [...] follow-up appointments noted. VISIT DIAGNOSES CPT Code 85882 - High complexity, seen within 7 days of discharge. N18.6 End stage renal disease Signed by: PLACIDO CARVER MD on 08/12/2024 at 01:16:47 PM Transcribed by: PLACIDO CARVER MD on 08/12/2024 at 01:16:47 PM documented in this encounter Plan of Treatment Not on file documented as of this encounter Visit Diagnoses Not on filedocumented in this encounter Care Teams Grading Supervisor Relationship Specialty Start Date End Date Alyssa Manzano DO [address] [place] [address] PCP - General Family Medicine 03/02/21 documented as of this encounter
--- OUTSIDE RECORDS SUMMARY | 2025-01-11 13:02 | XMS_ITS | Encounter Summary ---
Author Organization [facility] Address [address] [place] [phone] Phone Care Team Providers Care Mortgage Broker Name Role Phone EmilyAlyssa hutchinson Primary Care Provider Unava ilable Encounter Details Date Type Department Care Team (Late st Contact Info) Description 11/22/2024 TCM in Dialysis Clinic [facility] [address] [address] Placido Carver MD [address] [address] Social History Tobacco Use Types [...] 11/22/2024 The patient was seen for a dfuy-lk-qrgm visit as part of Transitional Care Management services. Attending Car Hop: PLACIDO CARVER MD Dialysis Location: [facility] Schedule: Shift: 2 INTERACTIVE CONTACT Contact [...] with the patient. VISIT DIAGNOSES CPT Code 19552 - High complexity, seen 8-14 days post [...] on filedocumented in this encounter Care Teams Mortgage Broker Relationship Specialty Start Date End Date Alyssa Manzano DO [address] [place] [address] PCP - General Family Medicine 03/02/21 documented as of this encounter
--- OUTSIDE RECORDS SUMMARY | 2025-01-11 13:02 | XMS_ITS | Encounter Summary ---
Author Organization [facility] Address [address] [place] [address] Phone Care Team Providers Care Fixed Income Portfolio Manager Name Role Phone Genevieve Gtz MD Primary Care Pro vider Encounter Details Date Type Department Care Team ([facility] Contact Info) Description 01/10/2025 Plan of Care Documentation [facility] [address] [place] [address] Social History Tobacco Use Types Packs/Day Years [...] Upcoming Encounters Date Type Department Care Team ([facility] Contact Info) Description 01/12/2025 1:30 AM EST Appointment [facility] [address] [place] [address] Roman Mcclure RN [address] [place] [address] [email or web address] 01/16/2025 2:30 AM EST Appointment [facility] [address] [place] [address] Roman Mcclure RN [address] [place] [address] [email or web address] 01/19/2025 3:00 AM EST Appointment [facility] [address] [place] [address] Roman Mcclure RN [address] [place] [address] [email or web address] 01/21/2025 2:30 AM EST Appointment [facility] [address] [place] [address] Roman Mcclure RN [address] [place] [address] [email or web address] 01/23/2025 2:30 AM EST Appointment [facility] [address] [place] [address] Roman Mcclure RN [address] [place] [address] [email or web address] 01/26/2025 2:30 AM EST Appointment [facility] [address] [place] [address] Roman Mcclure RN [address] [place] [address] [email or web address] 01/28/2025 2:30 AM EST Appointment [facility] [address] [place] [address] Roman Mclcure RN [address] [place] [address] [email or web address] 01/30/2025 2:30 AM EST Appointment [facility] [address] [place] [phone] Roman Mcclure RN [address] [place] [address] [email or web address] 02/04/2025 2:00 AM EST Appointment [facility] [address] [place] [address] Roman Mcclure RN [address] [place] [address] [email or web address] 02/11/2025 1:30 AM EST Appointment [facility] [address] [place] [phone] Roman Mcclure RN [address] [place] [address] [email or web address] 02/18/2025 1:00 AM EST Appointment [facility] [address] [place] [phone] Roman Mcclure RN [address] [place] [address] 02/25/2025 12:30 AM EST Appointment [facility] [address] [place] [address] Roman Mcclure RN [address] [place] [address] [email or web address] 03/04/2025 Appointment [facility] [address] [place] [phone] Roman Mcclure RN [address] [place] [address] 03/09/2025 Appointment [facility] [address] [place] [address] Roman Mcclure RN [address] [place], [place] [phone] [email or web address] documented as of this encounter Visit Diagnoses Not on filedocumented in this encounter Care Teams Fixed Income Portfolio Manager Relationship Specialty Start Date End Date Genevieve Gtz MD [address] [place] [phone] PCP - General Internal Medicine 11/06/24 documented as of this encounter Additional Source Comments The information contained in this document represents components of the legal health record. It is not the complete legal health record.[facility]
--- OUTSIDE RECORDS SUMMARY | 2025-01-11 13:03 | XMS_ITS | Clinical Summary ---
Author Organization [facility] Address [address] [place] [address] Care Team Providers Care Lang Interpreter Name Role Phone Unavailable Primary Care Provider [...] 0.79 S/CO ratio 01/10/2022 10:39 AM EST [facility] Hepatitis C Antibody Interpretation Nonreactive Nonreactive 01/10/2022 10:39 AM EST [facility] Blood specimen (specimen) (Plasma/Serum) 01/09/2022 8:34 AM EST 01/09/2022 9:21 AM EST us Jaziel B Post MD LAB BLOOD ORDERABLES Final Resu lt HOSPITAL LAB [facility] [address] [place] [address] * HIV 1/2 Ag/Ab CMIA Reflex to Confirmation (01/09/2022 8:34 AM EST) HIV 1/2 Ag/Ab CMIA Nonreactive Nonreactive 01/10/2022 10:39 AM EST [facility] Comment: Results show no evidence of infection [...] BLOOD ORDERABLES Final Resu lt HOSPITAL LAB [facility] [address] [place] [address] from Last 3 Months or Most Recently Relevant to Health Maintenance Insurance [facility] Member Subscriber Plan / Payer ( fective 2022-Present) Name:Shereen Taylor Relation to Subscriber:Self Name:Shereen Taylor Payer ID:Not on file Group ID:Not on file Type:Not on file Address: [address] [id number] MISC [employer] MEDICARE OUT OF NETWORK Advance Directives * Full Code (Latest Code Status on File) Date Activated Date Inactivated Comments 01/06/2022 5:00 AM Question Answer Comments Decision Thoroughly Discussed with: Unable to Ilda musa
--- OUTSIDE RECORDS SUMMARY | 2025-01-11 13:04 | XMS_ITS | Clinical Summary ---
Author Organization [facility] Address [address] [phone] Phone Care Team Providers Care Resaw Operator Name Role Phone Katlyn Manzanofer Primary [...] 12/04/2024 Treatment [facility] [address] [phone] Ed Carver MD End stage renal disease; Dependence on renal dialysis 11/25/2024 Treatment [facility] [address] [phone] Ed Carver MD End stage renal disease; Dependence on renal dialysis 11/22/2024 [facility] in Dialysis Clinic [facility] [address] [phone] Ed Carver MD 11/22/2024 Treatment [facility] [address] [phone] Ed Carver MD End stage renal disease; Dependence on renal dialysis 10/25/2024 Treatment [facility] [address] [phone] Ed Carver MD End stage renal disease; Dependence on renal dialysis 10/21/2024 Treatment [facility] [address] [phone] Ed Carver MD End stage renal disease; Dependence on renal dialysis 10/14/2024 Treatment [facility] [address] [phone] Ed Carver MD End stage renal disease; [...] EDT HEMOGLOBIN Routine 10/16/2024 3:00 AM EDT from Last 3 Months Results * (ABNORMAL) Hemoglobin (12/18/2024 3:00 AM EDT) Only the most recent of5 resultswithin the time period is included. Hgb 9.5(L) 11.2 - 15.7 g/dL [facility] Hemoglobin x 3 28.5(L) 33.6 - 47.1 g/dL [facility] 12/18/2024 3:0 0 AM EDT 12/19/2024 12:35 PM EDT us Ed Carver MD LAB BLOOD ORDERABLES Final Result Performing Organization Address City/[facility] Co de Phone Number [facility] [address] [place] [address] * LIH (11/27/2024 3:00 AM EDT) Only the most recent of3 resultswithin the time period is included. Lipemia Normal Normal [facility] Icterus Normal Normal [facility] Hemolysis Normal Normal [facility] 11/27/2024 3:00 AM EDT 11/28/2024 12:17 PM EDT Ed Carver MD LAB HISTORICA [id number] RESULTS Final Result Performing Organization Address [facility] de Phone Number [facility] [address] [place] [address] * (ABNORMAL) Kt/V Natural Log, URR (11/27/2024 3:00 AM EDT) Only the most recent of2 resultswithin the time period is included. Treatment [...] EDT us Ed Carver MD LAB HISTORICA [id number] RESULTS Final Result Performing Organization Address City/[facility]/ZIP Co de Phone Number [facility] [address] [place] [address] * (ABNORMAL) Calcium Phosphorus Product, Adjusted (11/27/2024 3:00 AM EDT) Only the most recent of2 resultswithin the time period is included. Albumin 4.0 3.6 - 5.4 g/dL [facility] Calcium 7.5(L) 8.6 - 10.3 mg/dL [facility] Phosphorus, Serum 9.7(H) 2.5 - 5.0 mg/dL [facility] Ca*PO4 72.8(A) <55.0 mg2/dL2 [facility] Calcium, Adjusted Total 7.5(L) 8.6 - 10.3 mg/dL [facility] CA*PO4 CORRCTD 72.8(A) <55.0 mg2/dL2 [facility] 11/27/2024 3:00 AM EDT 11/28/2024 12:17 PM EDT us Ed Carver MD LAB HISTORICA [id number] RESULTS Final Result Performing Organization Address [facility] de Phone Number [facility] [address] [place] [address] * Hepatitis B Surface Ag w/Reflex Confirmation (11/27/2024 3:00 AM EDT) Only the most recent of2 resultswithin the time period is included. Hep B Surface Antigen Negative Negative [facility] 11/27/2024 3:00 AM EDT 11/28/2024 12:17 PM EDT us Ed Carver MD LAB BLOOD ORDERABLES Final Result Performing Organization Address [facility] Co de Phone Number [facility] [address] [place] [address] * BUN/CREATININE RATIO (11/27/2024 3:00 AM EDT) Only the most recent of2 resultswithin the time period is included. Pathologist [facility] BUN/Creatinine Ratio 7.5 <=23.0 [facility] 11/27/2024 3:00 AM EDT 11/28/2024 12:17 PM EDT us Ed Carver MD LAB HISTORICA [id number] RESULTS Final Result Performing Organization Address [facility] de Phone Number [facility] [address] [place] [address] * (ABNORMAL) TSAT (11/27/2024 3:00 AM EDT) Only the most recent of2 resultswithin the time period is included. [facility] Iron 51 50 - 170 ug/dL [facility] Transferrin 158(L) 250 - 380 mg/dL [facility] TIBC 221 211 - 406 ug/dL [facility] Iron Saturation (TSat) 23 22 - 52 % [facility] 11/27/2024 3:00 AM EDT 11/28/2024 12:17 PM EDT Ed Carver MD LAB BLOOD ORDERABLES Final Result Performing Organization Address [facility] de Phone Number [facility] [address] [place] [address] * (ABNORMAL) CBC and Differential (11/27/2024 3:00 AM EDT) Only the most recent of2 resultswithin the time period is included. Pathologist [facility] DIFFERENTIAL MANUAL, 2 Not Indicated [facility] White [...] BLOOD ORDERABLES Final Result Performing Organization Address City/[facility] Co de Phone Number [facility] [address] [place] [address] * (ABNORMAL) ALT (11/27/2024 3:00 AM EDT) Only the most recent of2 resultswithin the time period is included. ALT (SGPT) <7(L) 10 - 49 U/L [facility] 11/27/2024 3:00 AM EDT 11/28/2024 12:17 PM EDT Ed Carver MD LAB BLOOD ORDERABLES Final Result Performing Organization Address City/[facility] Co de Phone Number [facility] [address] [place] [address] * AST (11/27/2024 3:00 AM EDT) Only the most recent of2 resultswithin the time period is included. AST (SGOT) 14 <34 U/L [facility] 11/27/2024 3:00 AM EDT 11/28/2024 12:17 PM EDT us Ed Carver MD LAB BLOOD ORDERABLES Final Result Performing Organization Address [facility] Co de Phone Number [facility] [address] [place] [address] * Protein, total (11/27/2024 3:00 AM EDT) Only the most recent of2 resultswithin the time period is included. Total Protein 6.9 6.4 - 8.9 g/dL [facility] 11/27/2024 3:00 AM EDT 11/28/2024 12:17 PM EDT Ed Carver MD LAB BLOOD ORDERABLES Final Result Performing Organization Address [facility] de Phone Number [facility] [address] [place] [address] * (ABNORMAL) Alkaline phosphatase (11/27/2024 3:00 AM EDT) Only the most recent of2 resultswithin the time period is included. Alkaline Phosphatase 122(H) 46 - 116 U/L [facility] 11/27/2024 3:00 AM EDT 11/28/2024 12:17 PM EDT Ed Carver MD LAB BLOOD ORDERABLES Final Result Performing Organization Address [facility] de Phone Number [facility] [address] [place] [address] * PTH, Intact (11/27/2024 3:00 AM EDT) PTH, Intact 550 160 - 721 pg/mL [facility] Comment: Suggested (KDIGO) ESRD maintenance range is two to nine times the upper normal limit (80.1 pg/mL) for the laboratory. 11/27/2024 3:00 AM EDT 11/28/2024 12:17 PM EDT us Ed Carver MD LAB BLOOD ORDERABLES Final Result Performing Organization Address City/[facility] Co de Phone Number [facility] [address] [place] [address] * Magnesium (11/27/2024 3:00 AM EDT) Only the most recent of2 resultswithin the time period is included. Magnesium 2.5 1.9 - 2.7 mg/dL [facility] 11/27/2024 3:00 AM EDT 11/28/2024 12:17 PM EDT us Ed Carver MD LAB BLOOD ORDERABLES Final Result Performing Organization Address [facility] de Phone Number [facility] [address] [place] [address] * (ABNORMAL) Lactate dehydrogenase (11/27/2024 3:00 AM EDT) Only the most recent of2 resultswithin the time period is included. LDH 260(H) 120 - 246 U/L [facility] 11/27/2024 3:00 AM EDT 11/28/2024 12:17 PM EDT us Ed Carver MD LAB BLOOD ORDERABLES Final Result Performing Organization Address [facility] de Phone Number [facility] [address] [place] [address] * (ABNORMAL) Hemoglobin A1c (11/27/2024 3:00 AM EDT) Hemoglobin A1C 5.7(H) <5.7 % [facility] Comment: Methodology: Enzymatic Normal: <5.7% Prediabetes: 5.7-6.4% Diabetes: >6.4% Diabetic Glucose Control Evaluation: Therapeutic action suggested at >8.0% ADA recommends a glycemic goal of <7.0% 11/27/2024 3:00 AM EDT 11/28/2024 12:24 PM EDT us Ed Carver MD LAB BLOOD ORDERABLES Final Result Performing Organization Address [facility] de Phone Number [facility] [address] [place] [address] * (ABNORMAL) Glucose, random (11/27/2024 3:00 AM EDT) Only the most recent of2 resultswithin the time period is included. Glucose 217(H) 70 - 99 mg/dL [facility] Comment: ADA guidelines outline the following fasting glucose ranges: Normal: <100 Prediabetes: 100-125 Diabetes: >125 11/27/2024 3:00 AM EDT 11/28/2024 12:17 PM EDT us Ed Carver MD LAB BLOOD ORDERABLES Final Result Performing Organization Address [facility] de Phone Number [facility] [address] [place] [address] * Ferritin (11/27/2024 3:00 AM EDT) Only the most recent of2 resultswithin the time period is included. Ferritin 166 10 - 291 ng/mL [facility] 11/27/2024 3:00 AM EDT 11/28/2024 12:17 PM EDT us Ed Carver MD LAB BLOOD ORDERABLES Final Result Performing Organization Address [facility] de Phone Number [facility] [address] [place] [address] * (ABNORMAL) Creatinine, serum (11/27/2024 3:00 AM EDT) Only the most recent of2 resultswithin the time period is included. Creatinine 10.25(H) 0.55 - 1.02 mg/dL [facility] 11/27/2024 3:00 AM EDT 11/28/2024 12:17 PM EDT us Ed Carver MD LAB BLOOD ORDERABLES Final Result Performing Organization Address City/[facility] Co de Phone Number [facility] [address] [place] [address] * Bilirubin, total (11/27/2024 3:00 AM EDT) Only the most recent of2 resultswithin the time period is included. Total Bilirubin 0.3 0.3 - 1.2 mg/dL [facility] 11/27/2024 3:00 AM EDT 11/28/2024 12:17 PM EDT us Ed Carver MD LAB BLOOD ORDERABLES Final Result Performing Organization Address [facility] de Phone Number [facility] [address] [place] [address] * (ABNORMAL) Lipid panel (11/27/2024 3:00 AM [...] ORDERABLES Final Result Performing Organization Address [facility] Co de Phone Number [facility] [address] [place] [address] * (ABNORMAL) Electrolyte panel (11/27/2024 3:00 AM [...] BLOOD ORDERABLES Final Result Performing Organization Address City/[facility]/ZIP Co de Phone Number [facility] [address] [place] [address] * (ABNORMAL) Phosphorus (10/21/2024 3:00 AM EDT) Phosphorus, Serum 8.8(H) 2.5 - 5.0 mg/dL [facility] 10/21/2024 3:00 AM EDT 10/22/2024 1:27 PM EDT Ed Carver MD LAB BLOOD ORDERABLES Final Result Performing Organization Address City/[facility]/ZIP Co de Phone Number [facility] [address] [place] [address] from Last 3 Months Insurance [facility] ([id number]) [facility] ([id number]) [facility] ([id number]) Care Teams Resaw Operator Relationship Specialty Start Date End Date Alyssa Manzano DO [address] [place] [id number] PCP - General Family Medicine 03/02/21
--- OUTSIDE RECORDS SUMMARY | 2025-01-11 13:04 | XMS_ITS | Encounter Summary ---
Author Organization [facility] Address [address] [place] [phone] Phone Care Team Providers Care Training Officer Name Role Phone EmilyAlyssa hutchinson Primary Care Provider Unava ilable Encounter Details Date Type Department Care Team (Late st Contact Info) Description 07/08/2024 TCM in Dialysis Clinic [facility] [address] [phone] Placido Carver MD [address] [phone] Social History Tobacco Use Types [...] 07/08/2024 The patient was seen for a [id number] visit as part of Transitional Care Management services. Attending Weasand Trimmer: PLACIDO CARVER MD Dialysis Location: [facility] Schedule: Shift: 2 INTERACTIVE CONTACT [...] - No ulcers. VISIT DIAGNOSES CPT Code 50088 - High complexity, seen within 7 days of discharge. N18.6 End stage renal disease Signed by: PLACIDO CARVER MD on 07/26/2024 at 02:13:33 PM Transcribed by: PLACIDO CARVER MD on 07/26/2024 at 02:13:33 PM documented in this encounter Plan of Treatment Not on file documented as of this encounter Visit Diagnoses Not on filedocumented in this encounter Care Teams Training Officer Relationship Specialty Start Date End Date Alyssa Manzano DO [address] [place] [address] PCP - General Family Medicine 03/02/21 documented as of this encounter
[2025-01-11 14:12] LABS: NRBC Abs Auto 0.000 X10*3/uL (0.0-0.012); NRBC Pct Auto 0.0 /100WBC (0.0-0.2); PLT CLUMP 1; SCAN SMEAR FLAG 1
[2025-01-11 14:17] LABS: INTERNATIONAL NORM RATIO 1.1 (0.9-1.1); Prothrombin Time 13.6 SEC (11.2-13.5)
[2025-01-11 14:22] LABS: Hematocrit 22.9 % (37.0-47.0)
[2025-01-11 14:23] LABS: Hemoglobin 7.6 g/dl (12.0-16.0); Imm Gran Abs Auto 0.02 X10*3/uL (0.00-0.03); Imm Gran Pct Auto 0.4 % (0.0-0.4); Lymphocytes Absolute Auto 0.5 X10*3/uL (1.2-4.9); MANUAL DIFF FLAG SCAN; Mean Corpuscular HGB Conc 33.2 g/dl (31.0-35.0); Mean Corpuscular Hemoglobin 30.4 pg (27.0-33.0); Mean Corpuscular Volume 91.6 fL (80.0-98.0); Red Blood Count 2.50 X10*6/uL (4.20-5.50)
[2025-01-11 14:25] LABS: White Blood Count 4.6 X10*3/uL (4.8-10.8)
[2025-01-11 14:30] LABS: Platelet Count 128 X10*3/uL (160-400)
[2025-01-11 14:47] LABS: Alanine Aminotransferase < 6 U/L (0-31); Albumin Level 3.7 g/dL (3.5-5.0); Alkaline Phosphatase 273 U/L (39-117); Anion Gap 27 (12-20); Aspartate Amino Transferase 47 U/L (5-31); Blood Urea Nitrogen 82 mg/dL (9-16); Calcium 8.7 mg/dL (8.4-10.2); Carbon Dioxide 18 mmol/L (22-29); Chloride 94 mmol/L (96-108); Creatinine Clr Calc Pharmacy 6.2; Estimated Glomerular Filt Rate 3; Magnesium 2.8 mg/dL (1.6-2.6); Potassium 6.5 mmol/L (3.3-5.1); Sodium 132 mmol/L (135-145); Total Protein 7.6 g/dL (6.5-8.0); Troponin-I High Sensitivity 81.7 ng/L (<3.5-17.0)
[2025-01-11 14:51] LABS: Resp Syncy Virus RNA Qual PCR NEGATIVE (Negative); SARS COV2 PCR INHOUSE NEGATIVE (Negative)
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
[2025-01-11 15:49] LABS: Appearance Urine Clear; Glucose Urine UA 100 mg/dL (Negative); PH 7.5 (5.0-9.0); Specific Gravity - Urine 1.015 (1.005-1.025); UMIC TRIGGER UACC YES
[2025-01-11 15:52] LABS: UACC Culture Trigger YES
[2025-01-11 15:54] VITALS: BP 167/78; PULSE 95; RESP 12; TEMP 36.4; O2SAT 95
[2025-01-11 16:24] LABS: Glucose, Whole Blood 81 mg/dL (60-115)
[2025-01-11] MEDS: Calcium Gluconate/NaCl,Iso-Osm 2 GM/100 ML PLAST..BAG IV (16:28)
[2025-01-11 16:50] LABS: VBG HCO3 24 mmol/L (22-26)
[2025-01-11 16:53] LABS: Venous Blood Gas Refer to POC result
--- NOTE | 2025-01-11 16:56 | P.HPHOSP_ITS ---
History of Present Illness Date of Service: 01/11/25 [facility] Chief Complaint: chest pain This is a 34-year-old female with history of ESRD, diabetes, multiple other chronic comorbidities who presents to the emergency department with chest pain. Patient was discharged from [facility] on January 08 after a hospitalization due to nonhealing left foot wound with osteomyelitis which resulted in left BKA on January 05. She returns to the emergency department today with complaints of chest pain. In the emergency department her cardiac enzymes were slightly elevated but within her chronic baseline. EKG was unchanged. Lab work was significant for potassium of 6.5, bicarb of 18 and creatinine of 13.22. Patient states that she has not gone to dialysis since discharge from the hospital. In the emergency department she was treated with calcium gluconate, insulin, dextrose, Lokelma. The case was discussed with the on-call deadener who recommended admitting the patient for urgent dialysis. Review of Systems 2 Review of Systems: Yes all other systems are reviewed and are negative Constitutional: Constitutional: Denies fever(s) Cardiovascular: Cardiovascular: Reports chest pain and Denies palpitations Respiratory: Respiratory: Denies cough Gastrointestinal: Gastrointestinal: Denies abdominal pain Endocrine: Endocrine: Denies palpitations [facility] Medical History Central pontine myelinolysis ESRD on hemodialysis End-stage renal disease (ESRD) Cardiomyopathy Cerebral microvascular disease Steroid-induced hyperglycemia Relapsing remitting multiple sclerosis Renal failure Multiple sclerosis Cerebral infarction Hyperkalemia ESRD on dialysis Hypoxia End stage renal disease on dialysis Chronic ulcer of right foot due to diabetes mellitus Chronic ulcer of left foot due to diabetes mellitus DM foot ulcer Hypotonic neurogenic bladder Diabetic polyneuropathy Hypertensive emergency Decompensated heart failure Renal failure Hypertension, uncontrolled Medical non-compliance Pericarditis Unspecified hypertension, condition or complication Metabolic acidosis Gastroparesis End stage chronic kidney disease Chronic kidney disease Anemia Plantar ulcer of left foot MDD (major depressive disorder) CKD (chronic kidney disease) Hypertension Vomiting Chronic pain Non-compliance with renal dialysis Diabetic foot ulcer associated with type 2 diabetes mellitus HFrEF (heart failure with reduced ejection fraction) delivery delivered Anemia in chronic kidney disease (CKD) CKD (chronic kidney disease) Abnormal finding on echocardiogram Elevated troponin Acute worsening of stage 3 chronic kidney disease Generalized edema Sepsis Cellulitis Pleural effusion Atypical chest pain Bone infection PAD (peripheral artery disease) Cellulitis and abscess of foot Osteomyelitis Asthma Depression with anxiety Diabetic retinopathy Blind right eye Diabetes Back pain Family History Mother Coronary artery disease Myocardial infarction Stroke Diabetes mellitus Father Myocardial infarction Surgical History Tubal ligation status Previous section Hx laparoscopic cholecystectomy Hx of surgical procedure (~09/11/23) 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 Social History Household Members: Family Household Members Other:: sister, brother, [id number] Housing: Apartment Housing Other:: Apartment, 1st floor Are you a primary health care administrator to a significant other at home: No Do you presently have visiting nurse or other home services: Yes Alcohol intake: never Comment: patient refusing bed alarm Patient Tobacco Use Status: Never used Tobacco e-Cigarette/Vaping Use: Never Used Second Hand Smoke Exposure: No Advance Directives: Yes Advance Directives on File: Yes Advance Directives Date on File: 08/28/23 Do you have a plan to hurt others: No Plan Recently lost weight without trying: No Nutrition Risks: No Nutritional Risk Patient : No service: No Current occupational status: unemployed and disabled Gender identity: Female Meds Allergies Allergy/AdvReac Type Severity Reaction Status Date / Time gabapentin Allergy Severe Facial Verified 01/11/25 12:40 Swelling tramadol Allergy Severe Facial Verified 01/11/25 12:40 Swelling azithromycin (From Zithromax) Allergy Intermediate Hives Verified 01/11/25 12:40 morphine (MORPHINE) Allergy Intermediate Itching Verified 01/11/25 12:40 vancomycin AdvReac Intermediate Itching Verified 01/11/25 12:40 Active Medications: Current Medications Acetaminophen (Ofirmev) 1,000 mg in 100 mls @ 400 mls/hr IV ONCE ONE Stop: 01/11/25 16:57 Home Medications ?Medication ?Instructions ?Recorded ?Confirmed ?Last Taken ?Type albuterol sulfate 90 mcg/actuation 2 puff inhalation Q 6H PRN wheezing 01/15/24 01/11/25 12/09/24 History aerosol inhaler (Ventolin HFA) nitroglycerin 0.4 mg sublingual 0.4 mg sublingual D IRECTED PRN 01/15/24 01/11/25 12/09/24 History tablet Angina calcium carbonate (Tums) 200 mg PO TIDWM PRN Acid Ref lux 07/03/24 01/11/25 12/09/24 History Physical Exam 2 Vital Signs and Narrative: Vital Signs: Last Vital Signs Temp 97.6 F 01/11/25 15:54 Pulse 95 01/11/25 15:54 Resp 12 01/11/25 15:54 BP 167/78 H 01/11/25 15:54 Pulse Ox 95 01/11/25 15:54 O2 Del Method Room Air 01/11/25 15:54 BMI result Body Mass Index 28.5 Const: General: cooperative, comfortable, alert and awake Nutritional Appearance: average body habitus Orientation/consciousness: patient oriented x3 Eyes: Other: right eye blind Resp: Effort & Inspection: no respiratory distress and no use of accessory muscles Cardio: Rate: regular rate Neuro: Other: grossly nonfocal General: patient oriented x3 Extrem: Other: right TMA; left BKA with stump wrapped in c/d/i dressing Results Labs 01/11/25 14:06 01/12/25 06:55 Labs: Laboratory Results - last 24 hr 01/11/25 01/11/25 01/11/25 14:06 15:44 16:19 MCV 91.6 MCH 30.4 MCHC 33.2 RDW 13.8 Plt Count 128 L D MPV 11.2 Immature Gran % (Auto) 0.4 Neut % (Auto) 71.5 Lymph % (Auto) 10.7 L [place] % (Auto) 13.5 H Eos % (Auto) 3.7 Baso % (Auto) 0.2 Lymph # (Auto) 0.5 L [place] # (Auto) 0.6 Eos # (Auto) 0.2 Baso # (Auto) 0.0 Abs Immat Gran (auto) 0.02 Absolute Neuts (auto) 3.3 Absolute Nucleated RBC 0.000 Nucleated RBC % (auto) 0.0 Smear Tech's Comments VERIFIED PT 13.6 H INR 1.1 VBG pH VBG pCO2 VBG pO2 VBG HCO3 VBG O2 Saturation VBG Base Excess Anion Gap 27 H Estim Creat Clear Calc 6.2 Estimated GFR 3 POC Glucose 81 Random Glucose 87 Calcium 8.7 Magnesium 2.8 H Total Bilirubin 0.5 Direct Bilirubin 0.2 AST 47 H ALT < 6 Alkaline Phosphatase 273 H Total Creatine Kinase 223 H Troponin I High Sens 81.7 H* Total Protein 7.6 Albumin 3.7 Urine Color Yellow Urine Appearance Clear Urine pH 7.5 Ur Specific Branch 1.015 Urine Protein 300 (3+) H Urine Glucose (UA) 100 H Urine Ketones Negative Urine Blood Negative Urine Nitrite Negative Ur Leukocyte Esterase Trace H Urine RBC 0-2 Urine WBC 11-20 H Ur Squamous Epith Cells 3-5 Urine Bacteria None Seen Hyaline Casts 0-2 Influenza Type A (PCR) NEGATIVE Influenza Type B (PCR) NEGATIVE RSV RNA Qual (PCR) NEGATIVE SARS-CoV-2 RNA (RT-PCR) NEGATIVE 01/11/25 16:44 MCV MCH MCHC RDW Plt Count MPV Immature Gran % (Auto) Neut % (Auto) Lymph % (Auto) [place] % (Auto) Eos % (Auto) Baso % (Auto) Lymph # (Auto) [place] # (Auto) Eos # (Auto) Baso # (Auto) Abs Immat Gran (auto) Absolute Neuts (auto) Absolute Nucleated RBC Nucleated RBC % (auto) Smear Tech's Comments PT INR VBG pH 7.36 VBG pCO2 42 VBG pO2 55 VBG HCO3 24 VBG O2 Saturation TNP VBG Base Excess -0.9 Anion Gap Estim Creat Clear Calc Estimated GFR POC Glucose Random Glucose Calcium Magnesium Total Bilirubin Direct Bilirubin AST ALT Alkaline Phosphatase Total Creatine Kinase Troponin I High Sens Total Protein Albumin Urine Color Urine Appearance Urine pH Ur Specific Branch Urine Protein Urine Glucose (UA) Urine Ketones Urine Blood Urine Nitrite Ur Leukocyte Esterase Urine RBC Urine WBC Ur Squamous Epith Cells Urine Bacteria Hyaline Casts Influenza Type A (PCR) Influenza Type B (PCR) RSV RNA Qual (PCR) SARS-CoV-2 RNA (RT-PCR) Assessment and Plan (1) Hyperkalemia: Status: Acute (2) ESRD on hemodialysis: Status: Acute Plan This is a 34 year old female with ESRD on HD TuThSa, DM2 with polyneuropathy/retinopathy + legal blindness, PAD s/p R TMA and recent Left BKA, chronic hypoxia on 3-4L O2, chronic HFrEF, multiple HD catheter line infections with MSSA/Stenotrophomonas/Pseudomonas, mood disorder, and chronic pain with opioid-seeking behavior; recently diagnosed MS who presents with Chest pain found to have hyperkalemia requiring urgent HD. hyperK due to missed HD plan for urgent HD this evening routine HD TuThSa follows with RTANE HTN Continue baseline medication Chronic osteo s/p Left BKA 01/05 Thick dressings and Kerlix with Izaiah bandage change daily DM2 SSI, POCs chronic hypoxia 3-4L O2 via NC prn chronic HFrEF carvedilol when med rec completed HD to manage volume Anemia in CKD H/H at stable compared to previous Thrombocytopenia Chronic chronic pain syndrome oxycodone when med rec completed VTE ppx - heparin med rec pending at the time of admission Patient will likely require 2 midnight stay in the hospital for management of hyperkalemia requiring urgent dialysis and close monitoring Quality Stroke Does the patient have a stroke diagnosis?: No VTE Prior VTE?: No VTE Risk Level:: Medical - moderate - high VTE Device Contraindication: Treatment Not Indicated VTE Drug Contraindication: N/A - Med Ordered
[2025-01-11 17:17] LABS: Glucose, Whole Blood 104 mg/dL (60-115)
--- NOTE | 2025-01-11 17:26 | PC.NURSE ---
Back charting: Pt arrived in ED for CP, pt vitals are in good range for pt baseline vitals. Pt reporting she woke up at 0700 with CP that radiates down her right arm. Pt last went to HD on Sunday prior to dc post MARK. Pt had #20 placed in L AC by RN, labs obtained. BUN/CR higher than baseline, pt admit for emergent HD. Pt having lower abdminal cramping, bladder scan completed, >560 showing at that time, straight cath done, 600cc urine obtained, sample sent. Orders placed fot K shift, POC only 81, this RN and providers decided to do only 5units of insulin instead of 10units, plan was to re-check in 30 minutes and repeat amp and 5units however pt needed in emergnet HD, this RN talked with nursing sup to get pt admitted and brought up to HD, this RN brought pt up, place on hospital bed and tele pack and brought to [place] with this RN and [facility] airplane pilot chief. At this time [facility] hot metal charger aware that repeat POC was due to in 10 minutes. All pt belongings brought up. Pt remained not wanting to wear O2, O2 remained stable on RA. Pt #20 IV infiltrated during dex amp, amp paused, MD at bedside and placed #20 US guided in Right AC, rest of amp given, insulin and calcium started. Per Calcium given over 1 hour vs 15minutes in APR. All staff aware of plan at this time.
--- NOTE | 2025-01-11 17:36 | HO.NURTONUR ---
Back charting: Pt arrived in ED for CP, pt vitals are in good range for pt baseline vitals. Pt reporting she woke up at 0700 with CP that radiates down her right arm. Pt last went to HD on Sunday prior to dc post MARK. Pt had #20 placed in L AC by RN, labs obtained. BUN/CR higher than baseline, pt admit for emergent HD. Pt having lower abdminal cramping, bladder scan completed, >560 showing at that time, straight cath done, 600cc urine obtained, sample sent. Orders placed fot K shift, POC only 81, this RN and providers decided to do only 5units of insulin instead of 10units, plan was to re-check in 30 minutes and repeat amp and 5units however pt needed in emergnet HD, this RN talked with nursing sup to get pt admitted and brought up to HD, this RN brought pt up, place on hospital bed and tele pack and brought to [place] with this RN and [facility] software engineer web applications. At this time [facility] charge operator aware that repeat POC was due to in 10 minutes. All pt belongings brought up. Pt remained not wanting to wear O2, O2 remained stable on RA. Pt #20 IV infiltrated during dex amp, amp paused, MD at bedside and placed #20 US guided in Right AC, rest of amp given, insulin and calcium started. Per Calcium given over 1 hour vs 15minutes in APR. All staff aware of plan at this time.
[2025-01-11 18:20] VITALS: BMI 30.2
--- NOTE | 2025-01-11 19:13 | PHA.MEDREC ---
Pharmacy Consult ? Medication Reconciliation Pharmacy has completed the medication reconciliation. Spoke to patient to confirm medication list. Patient was recently discharged on 01/08/25 and confirmed all meds are still the same. Per patient, she is not using lidocaine patches nor methocarbamol. She is still taking acetaminophen prn, hydromorphone 4 mg and oxycodone 10 mg. Last dose of medications was this morning 01/11/25.
[2025-01-11 20:00] VITALS: BP 85/54; PULSE 98; RESP 18; TEMP 36.1; O2SAT 98
[2025-01-11] MEDS: 0.9 % Sodium Chloride Flush 3 ML SYRINGE IVFLUSH (20:18)
[2025-01-11 21:00] VITALS: BP 108/68
[2025-01-11 22:11] LABS: Glucose, Whole Blood 179 mg/dL (60-115)
[2025-01-11 23:53] VITALS: BP 159/74; PULSE 99; RESP 18; TEMP 36.3; O2SAT 98
[2025-01-12 04:00] VITALS: BP 182/86; PULSE 67; RESP 18; TEMP 37.2; O2SAT 95
[2025-01-12 07:56] LABS: Blood Urea Nitrogen 45 mg/dL (9-16); Calcium 8.6 mg/dL (8.4-10.2); Creatinine Clr Calc Pharmacy 9.8; Estimated Glomerular Filt Rate 5
[2025-01-12 08:00] VITALS: BP 148/70; RESP 18; TEMP 37; O2SAT 93
[2025-01-12 08:16] LABS: Anion Gap 19 (12-20); Carbon Dioxide 24 mmol/L (22-29); Chloride 96 mmol/L (96-108); Potassium 4.7 mmol/L (3.3-5.1); Sodium 134 mmol/L (135-145)
[2025-01-12] MEDS: 0.9 % Sodium Chloride Flush 3 ML SYRINGE IVFLUSH ×3 (10:26→22:37)
[2025-01-12 11:59] VITALS: BP 108/60; PULSE 111; RESP 20; TEMP 36.5; O2SAT 93
[2025-01-12 12:16] LABS: Glucose, Whole Blood 100 mg/dL (60-115)
--- NOTE | 2025-01-12 14:03 | P.DS_ITS ---
DS: Providers Provider Date of Service: 01/12/25 Date of admission: 01/11/25 16:43 Date of discharge: 01/12/25 Primary care physician: Genevieve Casillas MD Consults: 01/11/25 16:52 Consult to Nephrology Routine Consulting Provider: [facility] Reason for consultation: esrd on HD; with hyperkalemia Has provider been notified: Yes 01/11/25 23:26 Consult to Wound Care Routine Consulting Provider: [facility] Reason for consultation: chroinic wound DS: Diagnosis Discharge Diagnosis (1) Hyperkalemia: Status: Acute (2) ESRD on hemodialysis: Status: Acute DS: Summary Hospital Course Hospital Course: Chief Complaint: chest pain This is a 34-year-old female with history of ESRD, diabetes, multiple other chronic comorbidities who presents to the emergency department with chest pain. Patient was discharged from [facility] on January 08 after a hospitalization due to nonhealing left foot wound with osteomyelitis which resulted in left BKA on January 05. She returns to the emergency department today with complaints of chest pain. In the emergency department her cardiac enzymes were slightly elevated but within her chronic baseline. EKG was unchanged. Lab work was significant for potassium of 6.5, bicarb of 18 and creatinine of 13.22. Patient states that she has not gone to dialysis since discharge from the hospital. In the emergency department she was treated with calcium gluconate, insulin, dextrose, Lokelma. The case was discussed with the on-call waxing machine operator helper who recommended admitting the patient for urgent dialysis. 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 For chest pain, troponin I level unremarkable and no ischemic changes on ECG. Her potassium has been corrected and is within normal limit, she has been dialysed today and will resume usual dialysis schedule hyperK due to missed HD, corrected, K is now normal and also had dialysis today HTN Continue baseline medication Chronic osteo s/p Left BKA 01/05 Thick dressings and Kerlix with Izaiah bandage change daily to follow up with surgeon DM2 resume home medication chronic hypoxia normal O2 on room air chronic HFrEF fluid removal with dialsysis Anemia in CKD H/H at stable compared to previous Thrombocytopenia Chronic chronic pain syndrome oxycodone Time Attestation Discharge Coordination Time (in mins): 45 Quality: Safe Use of Opioids Does Pt have an Active Cancer Diagnosis on the Problem List?: No Quality: Stroke Does the patient have a stroke diagnosis?: No Physical Exam Vital Signs: Vital Signs: Last Vital Signs Temp 97.7 F 01/12/25 11:59 Pulse 111 H 01/12/25 11:59 Resp 20 01/12/25 11:59 BP 108/60 01/12/25 11:59 Pulse Ox 93 01/12/25 11:59 O2 Del Method Room Air 01/12/25 11:59 BMI result Body Mass Index 30.2 DS: Data Data Completed and Pending Completed studies during hospitalization [Text1]: Procedures Detachment at Left 2nd Toe, Complete, Open Approach (09/08/23) Detachment at Left 3rd Toe, Complete, Open Approach (09/08/23) Detachment at Left 4th Toe, Complete, Open Approach (09/08/23) Detachment at Right Foot, Partial 1st Ray, Open Approach (03/01/20) Detachment at Right Foot, Partial 2nd Ray, Open Approach (03/01/20) Detachment at Right Foot, Partial 3rd Ray, Open Approach (03/01/20) Detachment at Right Foot, Partial 4th Ray, Open Approach (03/01/20) Detachment at Right Foot, Partial 5th Ray, Open Approach (03/01/20) Drainage of Right Pleural Cavity, Percutaneous Approach (01/14/21) Drainage of Spinal Canal, Percutaneous Approach, Diagnostic (09/05/24) Excision of Left Foot Muscle, Open Approach (01/14/24) Excision of Left Foot Skin, External Approach (10/08/23) Excision of Left Foot Subcutaneous Tissue and Fascia, Open Approach (10/29/24) Excision of Right Foot Skin, External Approach (07/31/24) Excision of Stomach, Pylorus, Via Natural or Artificial Opening Endoscopic, Diagnostic (08/27/22) Fluoroscopy of Spinal Cord (09/05/24) Fluoroscopy of Superior Vena Cava, Guidance (08/14/22) Insertion of Endotracheal Airway into Trachea, Via Natural or Artificial Opening (11/10/23) Insertion of Infusion Device into Right Atrium, Percutaneous Approach (02/25/24) Insertion of Infusion Device into Superior Vena Cava, Percutaneous Approach (05/25/24) Insertion of Infusion Device into Upper Vein, Percutaneous Approach (01/14/24) Insertion of Tunneled Vascular Access Device into Chest Subcutaneous Tissue and Fascia, Percutaneous Approach (05/25/24) Introduction of Other Thrombolytic into Peripheral Vein, Percutaneous Approach (09/05/24) Introduction of Vasopressor into Peripheral Vein, Percutaneous Approach (11/10/23) Isolation (11/10/23) Performance of Urinary Filtration, Intermittent, Less than 6 Hours Per Day (12/10/24) Removal of Infusion Device from Great Vessel, External Approach (01/14/21) Removal of Infusion Device from Great Vessel, Percutaneous Approach (05/25/24) Removal of Infusion Device from Heart, External Approach (01/14/24) Removal of Tunneled Vascular Access Device from Trunk Subcutaneous Tissue and Fascia, Open Approach (05/25/24) Respiratory Ventilation, Greater than 96 Consecutive Hours (11/10/23) Transfusion of Nonautologous Red Blood Cells into Peripheral Vein, Percutaneous Approach (11/10/23) Ultrasonography of Superior Vena Cava, Guidance (02/25/24) Labs on day of discharge: Laboratory Results - last 24 hr 01/11/25 01/11/25 01/11/25 14:06 15:44 16:19 WBC 4.6 L RBC 2.50 L Hgb 7.6 L Hct 22.9 L MCV 91.6 MCH 30.4 MCHC 33.2 RDW 13.8 Plt Count 128 L D MPV 11.2 Immature Gran % (Auto) 0.4 Neut % (Auto) 71.5 Lymph % (Auto) 10.7 L [place] % (Auto) 13.5 H Eos % (Auto) 3.7 Baso % (Auto) 0.2 Lymph # (Auto) 0.5 L [place] # (Auto) 0.6 Eos # (Auto) 0.2 Baso # (Auto) 0.0 Abs Immat Gran (auto) 0.02 Absolute Neuts (auto) 3.3 Absolute Nucleated RBC 0.000 Nucleated RBC % (auto) 0.0 Smear Tech's Comments VERIFIED Hold Purple Top PT 13.6 H INR 1.1 VBG pH VBG pCO2 VBG pO2 VBG HCO3 VBG O2 Saturation VBG Base Excess Sodium 132 L Potassium 6.5 H* D Chloride 94 L Carbon Dioxide 18 L Anion Gap 27 H BUN 82 H Creatinine 13.22 H* Estim Creat Clear Calc 6.2 Estimated GFR 3 POC Glucose 81 Random Glucose 87 Calcium 8.7 Magnesium 2.8 H Total Bilirubin 0.5 Direct Bilirubin 0.2 AST 47 H ALT < 6 Alkaline Phosphatase 273 H Total Creatine Kinase 223 H Troponin I High Sens 81.7 H* Total Protein 7.6 Albumin 3.7 Urine Color Yellow Urine Appearance Clear Urine pH 7.5 Ur Specific [place] 1.015 Urine Protein 300 (3+) H Urine Glucose (UA) 100 H Urine Ketones Negative Urine Blood Negative Urine Nitrite Negative Ur Leukocyte Esterase Trace H Urine RBC 0-2 Urine WBC 11-20 H Ur Squamous Epith Cells 3-5 Urine Bacteria None Seen Hyaline Casts 0-2 Influenza Type A (PCR) NEGATIVE Influenza Type B (PCR) NEGATIVE RSV RNA Qual (PCR) NEGATIVE SARS-CoV-2 RNA (RT-PCR) NEGATIVE 01/11/25 01/11/25 01/11/25 16:44 17:12 22:07 WBC RBC Hgb Hct MCV MCH MCHC RDW Plt Count MPV Immature Gran % (Auto) Neut % (Auto) Lymph % (Auto) [place] % (Auto) Eos % (Auto) Baso % (Auto) Lymph # (Auto) [place] # (Auto) Eos # (Auto) Baso # (Auto) Abs Immat Gran (auto) Absolute Neuts (auto) Absolute Nucleated RBC Nucleated RBC % (auto) Smear Tech's Comments Hold Purple Top PT INR VBG pH 7.36 VBG pCO2 42 VBG pO2 55 VBG HCO3 24 VBG O2 Saturation TNP VBG Base Excess -0.9 Sodium Potassium Chloride Carbon Dioxide Anion Gap BUN Creatinine Estim Creat Clear Calc Estimated GFR POC Glucose 104 179 H Random Glucose Calcium Magnesium Total Bilirubin Direct Bilirubin AST ALT Alkaline Phosphatase Total Creatine Kinase Troponin I High Sens Total Protein Albumin Urine Color Urine Appearance Urine pH Ur Specific [place] Urine Protein Urine Glucose (UA) Urine Ketones Urine Blood Urine Nitrite Ur Leukocyte Esterase Urine RBC Urine WBC Ur Squamous Epith Cells Urine Bacteria Hyaline Casts Influenza Type A (PCR) Influenza Type B (PCR) RSV RNA Qual (PCR) SARS-CoV-2 RNA (RT-PCR) 01/12/25 01/12/25 06:55 11:59 WBC RBC Hgb Hct MCV MCH MCHC RDW Plt Count MPV Immature Gran % (Auto) Neut % (Auto) Lymph % (Auto) [place] % (Auto) Eos % (Auto) Baso % (Auto) Lymph # (Auto) [place] # (Auto) Eos # (Auto) Baso # (Auto) Abs Immat Gran (auto) Absolute Neuts (auto) Absolute Nucleated RBC Nucleated RBC % (auto) Smear Tech's Comments Hold Purple Top SEE NOTE PT INR VBG pH VBG pCO2 VBG pO2 VBG HCO3 VBG O2 Saturation VBG Base Excess Sodium 134 L Potassium 4.7 D Chloride 96 Carbon Dioxide 24 Anion Gap 19 BUN 45 H Creatinine 8.67 H* Estim Creat Clear Calc 9.8 Estimated GFR 5 POC Glucose 100 Random Glucose 106 Calcium 8.6 Magnesium Total Bilirubin Direct Bilirubin AST ALT Alkaline Phosphatase Total Creatine Kinase Troponin I High Sens Total Protein Albumin Urine Color Urine Appearance Urine pH Ur Specific [place] Urine Protein Urine Glucose (UA) Urine Ketones Urine Blood Urine Nitrite Ur Leukocyte Esterase Urine RBC Urine WBC Ur Squamous Epith Cells Urine Bacteria Hyaline Casts Influenza Type A (PCR) Influenza Type B (PCR) RSV RNA Qual (PCR) SARS-CoV-2 RNA (RT-PCR) Preliminary micro results at discharge 01/11/25 15:54 Urine Culture - Preliminary Urine Catheterized - Carrero Catheter Culture too young to evaluate. Discharge Plan Discharge Patient Disposition: Home Health Service Discharge Diagnosis: Hyperkalemia, missed dialysis, chest pain Referrals: Genevieve Gtz MD [Primary Care Provider, Internal Medicine] - 1 Week Discharge Medications: Continued carvedilol 12.5 mg Tablet 12.5 mg PO BID 90 Days Qty: 180 0RF Protocol: Hold for SBP/HR < HOLD for SBP < : 90 HOLD for HR < : 60 hydralazine 50 mg Tablet 50 mg PO TID 90 Days Qty: 270 0RF Protocol: Hold for SBP< HOLD for SBP < : 90 (DME) FreeStyle Lite Strips Strip Qty: 100 0RF Rx Instructions: Test four times a day or as directed. (DME) blood-glucose meter [FreeStyle Lite Meter] Kit Qty: 1 0RF Rx Instructions: As Directed (DME) pen needle, diabetic 32 gauge x 1/4 needle Qty: 100 0RF Rx Instructions: Use four times a day or as directed. (DME) lancets [FreeStyle Lancets] 28 gauge misc Qty: 100 0RF Rx Instructions: Test four times a day or as directed. hydromorphone [Dilaudid] 4 mg tablet 4 mg PO Q6H PRN (Reason: pain) Qty: 20 0RF Rx Instructions: Partial Fill upon patient request. metoclopramide HCl [Reglan] 10 mg tablet 10 mg PO Q6H PRN (Reason: nausea and vomiting) Qty: 14 0RF nitroglycerin 0.4 mg tablet, sublingual 0.4 mg sublingual DIRECTED PRN (Reason: Angina) albuterol sulfate [Ventolin HFA] 90 mcg/actuation HFA aerosol inhaler 2 puff inhalation Q6H PRN (Reason: wheezing) calcium carbonate [Tums] 200 mg calcium (500 mg) Tablet,Chewable 200 mg PO TIDWM PRN (Reason: Acid Reflux) oxycodone 10 mg tablet 10 mg PO Q8H PRN (Reason: pain) 5 Days Qty: 10 0RF Rx Instructions: Partial Fill upon patient request. acetaminophen 325 mg tablet 975 mg PO Q4H PRN (Reason: mild pain) 30 Days Qty: 90 0RF Discharge Orders: Discharge Order (Routine); Ordered 01/12/25 Ordered By: Contreras Blanton Diet: Diabetic diet Activity on Discharge: As tolerated Stand Alone Forms: Patient Portal Discharge page Print Language: [facility] Concerns: missing dialysis frequently, recent BKA, chest pain resolved Plan of Treatment: resume dialysis schedule as before, follow up with PCP and Dr. Arias for wound check
--- NOTE | 2025-01-12 14:18 | MHC.CM.PN ---
Addendum entered by Yarely Moe 01/12/25 15:45: PT INFORMED CM SHE DOES NOT FEEL READY TO DC DUE TO CHEST PAIN AND INCISION PAIN CM ASSISTED PT IN APPEALING HER DC. 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
--- NOTE | 2025-01-12 15:17 | HO.WOUND ---
Wound Consult: Initial 34 yr old female admitted to [facility] [place] on 01/11/25- See progress notes and H&P for detailed history. Wound consult placed for right foot. Patient agreeable to assessment and photo documentation. Left BKA 01/05/25 with general surgery, recommendations for dry dressing. Patient complaining of ongoing chest pain, reporting not comfortable with discharge at this time. Message relayed to direct care RN, CM, and attending. Right foot Etiology: diabetic foot wound Measurements: 2cm x 2cm x 0cm Wound Bed: dry black/brown eschar Drainage / Odor: none Edges: ? attached Pao wound: ? No Induration, Fluctuance or Warmth noted - surrounding dry callus Pain: yes Goals of Treatment: ? maintain clean dry environment with betadine and dry dressing Left BKA- incision line well approximated, sutures intact, scabbing noted scattered across incision line, scant serosanguineous drainage noted on old dressing from medial aspect of incision. mild surrounding redness and swelling noted - no warmth, no fluctuance, no induration, no purulence. - dry dressing applied with ABD/gauze/gisela wrap Recommendations: 1. Turn and Reposition every 2 hours and as needed for patient comfort. Use pillows or wedges to support off loading positions. 2. Off Load all bony prominences with use of pillows and heel boots if needed. Apply Preventative foams where needed. 3. Monitor for incontinence and moisture control, use barrier creams when needed for prevention and treatment. 4. Provide adequate and supplemental nutrition. 5. Order or Continue low air loss mattress. 6. When applicable maintain blood glucose levels per Providers order. Right foot: paint with betadine, cover with dry rolled gauze, change daily and PRN. Left BKA: daily dry dressing, gisela per surgery recommendations- Re-consult wound care Nurse for wound deterioration or wound changes.
[2025-01-12 15:43] VITALS: BP 114/56; PULSE 97; RESP 20; TEMP 36.7; O2SAT 97
[2025-01-12 15:45] LABS: Glucose, Whole Blood 113 mg/dL (60-115)
--- NOTE | 2025-01-12 15:46 | P.CONNP_ITS ---
History of Present Illness Reason for Consult Consult date: 01/12/25 Reason for consult: ESRD and HD management History of Present Illness Narrative: [facility] consulted for ESRD and HD management In summary she is a34 year old female with ESRD on HD TuThSa, DM2 with polyneuropathy/retinopathy + legal blindness, PAD s/p R TMA and recent Left BKA, chronic hypoxia on 3-4L O2, chronic HFrEF, multiple HD catheter line infections with MSSA/Stenotrophomonas/Pseudomonas, mood disorder, and chronic pain with opioid-seeking behavior; recently diagnosed MS who presents with Chest pain found to have hyperkalemia requiring urgent HD. Overall doing better and K now controlled w HD. She is suppose to be on Lokelma on non--HD days as she is prone to hyperK PMH as noted Review of Systems Review of Systems Constitutional : No Fever, No Chills ENT/Mouth : No sore throat, No Rhinorrhea Eyes: No Eye Pain, No Swelling, No Redness Cardiovascular : + Chest Pain, No SOB Respiratory : No Cough, No Sputum Gastrointestinal : No Nausea, No Vomiting, No Diarrhea, No abdominal Pain Genitourinary : No Dysuria, No Hematuria Musculoskeletal : No joint pain, No Myalgias, No Joint Swelling Skin : No Skin Lesions Neuro : No Weakness, No Numbness, No Headache All other systems reviewed and are negative Yes all other systems are reviewed and are negative Constitutional: Reports as per HPI and Denies fever(s) Cardiovascular: Reports chest pain and Denies palpitations Respiratory: Denies cough Gastrointestinal: Denies abdominal pain Endocrine: Denies palpitations [facility] Past Medical History Medical History Central pontine myelinolysis ESRD on hemodialysis End-stage renal disease (ESRD) Cardiomyopathy Cerebral microvascular disease Steroid-induced hyperglycemia Relapsing remitting multiple sclerosis Renal failure Multiple sclerosis Cerebral infarction Hyperkalemia ESRD on dialysis Hypoxia End stage renal disease on dialysis Chronic ulcer of right foot due to diabetes mellitus Chronic ulcer of left foot due to diabetes mellitus DM foot ulcer Hypotonic neurogenic bladder Diabetic polyneuropathy Hypertensive emergency Decompensated heart failure Renal failure Hypertension, uncontrolled Medical non-compliance Pericarditis Unspecified hypertension, condition or complication Metabolic acidosis Gastroparesis End stage chronic kidney disease Chronic kidney disease Anemia Plantar ulcer of left foot MDD (major depressive disorder) CKD (chronic kidney disease) Hypertension Vomiting Chronic pain Non-compliance with renal dialysis Diabetic foot ulcer associated with type 2 diabetes mellitus HFrEF (heart failure with reduced ejection fraction) delivery delivered Anemia in chronic kidney disease (CKD) CKD (chronic kidney disease) Abnormal finding on echocardiogram Elevated troponin Acute worsening of stage 3 chronic kidney disease Generalized edema Sepsis Cellulitis Pleural effusion Atypical chest pain Bone infection PAD (peripheral artery disease) Cellulitis and abscess of foot Osteomyelitis Asthma Depression with anxiety Diabetic retinopathy Blind right eye Diabetes Back pain Family History Family History Mother Coronary artery disease Myocardial infarction Stroke Diabetes mellitus Father Myocardial infarction Surgical History Surgical History Tubal ligation status Previous section Hx laparoscopic cholecystectomy Hx of surgical procedure (~09/11/23) 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 Social History Social History Household Members: Family Household Members Other:: sister, brother, [id number] Housing: Apartment Housing Other:: Apartment, 1st floor Are you a primary cardiac care unit nurse to a significant other at home: No Do you presently have visiting nurse or other home services: Yes Alcohol intake: never Comment: patient refusing bed alarm Patient Tobacco Use Status: Never used Tobacco e-Cigarette/Vaping Use: Never Used Second Hand Smoke Exposure: No Advance Directives: Yes Advance Directives on File: Yes Advance Directives Date on File: 08/28/23 Do you have a plan to hurt others: No Plan Recently lost weight without trying: No Nutrition Risks: No Nutritional Risk Patient : No service: No Current occupational status: unemployed and disabled Gender identity: Female Meds Allergies Allergy/AdvReac Type Severity Reaction Status Date / Time gabapentin Allergy Severe Facial Verified 01/11/25 12:40 Swelling tramadol Allergy Severe Facial Verified 01/11/25 12:40 Swelling azithromycin (From Zithromax) Allergy Intermediate Hives Verified 01/11/25 12:40 morphine (MORPHINE) Allergy Intermediate Itching Verified 01/11/25 12:40 vancomycin AdvReac Intermediate Itching Verified 01/11/25 12:40 Active Medications: Current Medications Acetaminophen (Acetaminophen 325 Mg Tablet) 650 mg PO Q6H PRN PRN Reason: Pain, Mild 1-3,fever,headache Albuterol Sulfate (Albuterol Sulfate 90 Mcg 8 Gm Inhaler) 2 puff INHALE Q6H PRN PRN Reason: Wheezing Calcium Carbonate (Calcium Carbonate 750 Mg Tab.Chew) 750 mg PO Q4H PRN PRN Reason: Heartburn Carvedilol (Carvedilol 12.5 Mg Tablet) 12.5 mg PO BID [facility]; Protocol Last Admin: 01/12/25 12:35 Dose: Not Given Dextrose (Dextrose 50 % 25 Gm/50 Ml Syringe) 25 gm IVPUSH Q15M PRN; Protocol PRN Reason: per Hypoglycemia Standing Ord. Diphenhydramine HCl (Diphenhydramine Hcl 50 Mg/Ml Vial) 25 mg IVPUSH Q6H PRN PRN Reason: Itching Last Admin: 01/12/25 10:32 Dose: 25 mg Glucose (Glucose Gel 15 Gm Gel..Gram.) 15 gm PO Q15M PRN; Protocol PRN Reason: per Hypoglycemia Standing Ord. Heparin Sodium (Porcine) (Heparin Sodium,Porcine 5,000 Unit/Ml Vial) 5,000 unit SUBCUT Q12H [facility] Last Admin: 01/12/25 06:03 Dose: Not Given Hydralazine HCl (Hydralazine Hcl 50 Mg Tablet) 50 mg PO TID [facility]; Protocol Last Admin: 01/12/25 12:35 Dose: Not Given Hydromorphone HCl (Hydromorphone Hcl 1 Mg/Ml Syringe) 0.5 mg IVPUSH Q4H PRN; Protocol PRN Reason: Pain, Severe (Pain Scale 7-10) Last Admin: 01/12/25 14:27 Dose: 0.5 mg Insulin Human Lispro (Insulin Lispro 100 Unit/Ml 3 Ml Vial) 0 unit SUBCUT QIDACHS [facility]; Protocol Last Admin: 01/12/25 12:28 Dose: Not Given Magnesium Hydroxide (Milk Of Magnesia 30 Ml Oral.Susp) 30 ml PO DAILY PRN PRN Reason: Constipation Melatonin (Melatonin 3 Mg Tablet) 6 mg PO BEDTIME PRN PRN Reason: Insomnia Metoclopramide HCl (Metoclopramide Hcl 10 Mg Tablet) 10 mg PO Q6H PRN PRN Reason: Nausea and Vomiting Nitroglycerin (Nitroglycerin 0.4 Mg Tab.Subl) 0.4 mg SUBLINGUAL Q5M PRN PRN Reason: Angina Ondansetron HCl (Ondansetron Hcl 4 Mg/2 Ml Vial) 4 mg IVPUSH Q8H PRN PRN Reason: Nausea and Vomiting Sodium Chloride (0.9 % Sodium Chloride Flush 3 Ml Syringe) 3 ml IVFLUSH QSHIFT [facility] Last Admin: 01/12/25 10:26 Dose: 3 ml Home Medications ?Medication ?Instructions ?Recorded ?Confirmed ?Last Taken ?Type albuterol sulfate 90 mcg/actuation 2 puff inhalation Q 6H PRN wheezing 01/15/24 01/11/25 12/09/24 History aerosol inhaler (Ventolin HFA) nitroglycerin 0.4 mg sublingual 0.4 mg sublingual D IRECTED PRN 01/15/24 01/11/25 12/09/24 History tablet Angina calcium carbonate (Tums) 200 mg PO TIDWM PRN Acid Ref lux 07/03/24 01/11/25 12/09/24 History Physical Exam Vital Signs: Last Vital Signs Temp 98.0 F 01/12/25 15:43 Pulse 97 01/12/25 15:43 Resp 20 01/12/25 15:43 BP 114/56 L 01/12/25 15:43 Pulse Ox 97 01/12/25 15:43 O2 Del Method Room Air 01/12/25 15:43 BMI result Body Mass Index 30.2 Const General: cooperative, comfortable, no acute distress, alert and awake Nutritional Appearance: average body habitus Orientation/consciousness: patient oriented x3 Limitations: no limitations HEENT Head: Yes normal to inspection, Yes normocephalic and Yes atraumatic Ears: hearing grossly normal bilaterally General nose exam: Normal external nose present Face and sinus: Yes normal facial exam Mouth: Normal oral and palatal mucosa present, oropharynx normal and moist mucous membranes Throat: Yes posterior oropharynx normal Eyes Other: right eye blind General: appearance normal, both eyes and all related structures Eyelids: Yes eyelids normal Conjunctivae: conjunctivae normal Sclerae: sclerae normal Pupils: Equal, round and reactive pupils present EOM: EOMs intact bilaterally Neck Neck: Yes normal visual inspection, Yes full ROM and Yes no lymphadenopathy Lymphatic: no lymphadenopathy noted Chest Chest palpation & inspection: normal inspection of the chest Resp Effort & Inspection: normal respiratory effort, able to speak in complete sentences, no respiratory distress and no use of accessory muscles Auscultation: clear to auscultation bilaterally, no crackles, no rales, no rhonchi and no wheezes Cardio Rate: regular rate Rhythm: regular rhythm Heart sounds: S1 normal heart sound present and S2 normal heart sound present GI Other: abdomen is soft, nontender, nondistended Inspection: Yes normal to inspection Skin General skin exam: no rashes or lesions noted Trauma: no lacerations or abrasions Wounds: no wounds Neuro Other: grossly nonfocal General: patient oriented x3 and moves all extremities Cranial nerves: Yes Equal, round and reactive pupils present Extrem Other: Left BKA noted, with dressing in place. General: Yes normal to inspection Right upper extremity: normal to inspection Left upper extremity: normal to inspection Right lower extremity: normal to inspection Left lower extremity: normal to inspection Results Lab Results 01/11/25 14:06 01/12/25 06:55 Lab results: Chemistry 01/11/25 01/12/25 14:06 06:55 Sodium 132 L 134 L Potassium 6.5 H* D 4.7 D Carbon Dioxide 18 L 24 BUN 82 H 45 H Creatinine 13.22 H* 8.67 H* Calcium 8.7 8.6 Hematology 01/11/25 14:06 WBC 4.6 L Hgb 7.6 L Plt Count 128 L D Urinalysis 01/11/25 15:44 Urine Color Yellow Urine Appearance Clear Urine pH 7.5 Ur Specific [place] 1.015 Urine Protein 300 (3+) H Urine Glucose (UA) 100 H Urine Ketones Negative Urine Blood Negative Urine Nitrite Negative Ur Leukocyte Esterase Trace H Urine RBC 0-2 Urine WBC 11-20 H Ur Squamous Epith Cells 3-5 Hyaline Casts 0-2 Assessment and Plan (1) Hyperkalemia: Status: Acute (2) ESRD on hemodialysis: Status: Acute Plan ESRD: usu TTS but getting HD today and then look to get her back on TTS schedule--will reassess tmw HyperK: recurrent prob; should be on Lokelma on non-HD days Nephrogenic Anemia: needs EPO ( I will order 20k sq x1) MBD of CKD Will follow w team gael Procedures Date of Service Date of Service: 01/12/25
--- NOTE | 2025-01-12 17:07 | P.PNIM_ITS ---
Subjective Subjective Date of Service: 01/12/25 Interval History: Claim to have ongoing chest pain, vital stable and hemodynamically stable. Physical Exam 2 Vital Signs: Vital Signs: Last Vital Signs Temp 98.0 F 01/12/25 15:43 Pulse 97 01/12/25 15:43 Resp 20 01/12/25 15:43 BP 114/56 L 01/12/25 15:43 Pulse Ox 97 01/12/25 15:43 O2 Del Method Room Air 01/12/25 15:43 BMI result Body Mass Index 30.2 Const: Other: General: AO X 3, no acute distress Resp: CTA bilateral CVS: S1,S2,RRR GI: +BS, NT, no distention Skin: left BKA, dressing in place Neuro: motor grossly intact Psych: appropriate affect Objective Data Active Medications Acetaminophen (Acetaminophen 325 Mg Tablet) 650 mg PO Q6H PRN PRN Reason: Pain, Mild 1-3,fever,headache Albuterol Sulfate (Albuterol Sulfate 90 Mcg 8 Gm Inhaler) 2 puff INHALE Q6H PRN PRN Reason: Wheezing Calcium Carbonate (Calcium Carbonate 750 Mg Tab.Chew) 750 mg PO Q4H PRN PRN Reason: Heartburn Carvedilol (Carvedilol 12.5 Mg Tablet) 12.5 mg PO BID ON LICENSE OF [facility]; Protocol Last Admin: 01/12/25 12:35 Dose: Not Given Documented By: TONA Non-Admin Reason: Patient Refused Dextrose (Dextrose 50 % 25 Gm/50 Ml Syringe) 25 gm IVPUSH Q15M PRN; Protocol PRN Reason: per Hypoglycemia Standing Ord. Diphenhydramine HCl (Diphenhydramine Hcl 50 Mg/Ml Vial) 25 mg IVPUSH Q6H PRN PRN Reason: Itching Last Admin: 01/12/25 16:45 Dose: 25 mg Documented By: TONA Glucose (Glucose Gel 15 Gm Gel..Gram.) 15 gm PO Q15M PRN; Protocol PRN Reason: per Hypoglycemia Standing Ord. Heparin Sodium (Porcine) (Heparin Sodium,Porcine 5,000 Unit/Ml Vial) 5,000 unit SUBCUT Q12H ON LICENSE OF [facility] Last Admin: 01/12/25 16:53 Dose: Not Given Documented By: TONA Non-Admin Reason: Patient Refused Hydralazine HCl (Hydralazine Hcl 50 Mg Tablet) 50 mg PO TID ON LICENSE OF [facility]; Protocol Last Admin: 01/12/25 16:44 Dose: 50 mg Documented By: TONA Hydromorphone HCl (Hydromorphone Hcl 1 Mg/Ml Syringe) 0.5 mg IVPUSH Q4H PRN; Protocol PRN Reason: Pain, Severe (Pain Scale 7-10) Last Admin: 01/12/25 14:27 Dose: 0.5 mg Documented By: TONA Insulin Human Lispro (Insulin Lispro 100 Unit/Ml 3 Ml Vial) 0 unit SUBCUT QIDACHS ON LICENSE OF [facility]; Protocol Last Admin: 01/12/25 16:52 Dose: Not Given Documented By: TONA Non-Admin Reason: No Insulin Coverage Magnesium Hydroxide (Milk Of Magnesia 30 Ml Oral.Susp) 30 ml PO DAILY PRN PRN Reason: Constipation Melatonin (Melatonin 3 Mg Tablet) 6 mg PO BEDTIME PRN PRN Reason: Insomnia Metoclopramide HCl (Metoclopramide Hcl 10 Mg Tablet) 10 mg PO Q6H PRN PRN Reason: Nausea and Vomiting Nitroglycerin (Nitroglycerin 0.4 Mg Tab.Subl) 0.4 mg SUBLINGUAL Q5M PRN PRN Reason: Angina Ondansetron HCl (Ondansetron Hcl 4 Mg/2 Ml Vial) 4 mg IVPUSH Q8H PRN PRN Reason: Nausea and Vomiting Sodium Chloride (0.9 % Sodium Chloride Flush 3 Ml Syringe) 3 ml IVFLUSH [facility] Last Admin: 01/12/25 16:47 Dose: 3 ml Documented By: TONA Labs 01/11/25 14:06 01/12/25 06:55 Labs: Laboratory Results - last 24 hr 01/11/25 01/11/25 01/12/25 17:12 22:07 06:55 Hold Purple Top SEE NOTE Anion Gap 19 Estim Creat Clear Calc 9.8 Estimated GFR 5 POC Glucose 104 179 H Random Glucose 106 Calcium 8.6 01/12/25 01/12/25 11:59 15:37 Hold Purple Top Anion Gap Estim Creat Clear Calc Estimated GFR POC Glucose 100 113 Random Glucose Calcium Microbiology Microbiology Results: Microbiology 01/11/25 15:54 Urine Culture - Preliminary Urine Catheterized - Carrero Catheter Culture too young to evaluate. Assessment and Plan (1) ESRD on hemodialysis: Status: Acute Plan This is a 34 year old female with ESRD on HD TuThSa, DM2 with polyneuropathy/retinopathy + legal blindness, PAD s/p R TMA and recent Left BKA, chronic hypoxia on 3-4L O2, chronic HFrEF, multiple HD catheter line infections with MSSA/Stenotrophomonas/Pseudomonas, mood disorder, and chronic pain with opioid-seeking behavior; recently diagnosed MS who presents with Chest pain found to have hyperkalemia requiring urgent HD. Chest pain, mild increase in trop likely from renal failure recheck, and cardiology if persist hyperK due to missed HD K is normal HTN Continue baseline medication Chronic osteo s/p Left BKA 01/05 Thick dressings and Kerlix with Izaiah bandage change daily Dr. Arias will look at wound DM2 SSI, POCs chronic hypoxia 3-4L O2 via NC prn chronic HFrEF carvedilol HD to manage volume Anemia in CKD H/H at stable compared to previous Thrombocytopenia Chronic chronic pain syndrome oxycodone when med rec completed VTE ppx - heparin Pt was discharged but appealed the DC, citing ongoing chest pain Quality Stroke Does the patient have a stroke diagnosis?: No VTE Prior VTE?: No VTE Risk Level:: Medical - moderate - high VTE Device Contraindication: Treatment Not Indicated VTE Drug Contraindication: N/A - Med Ordered
--- NOTE | 2025-01-12 17:53 | PC.NURSE ---
Pt refused carvedilol and hydralazine after dialysis, stating she does not take these medications when her BP is low. RN informed her that her SBP was above 90, which is our standard. She did take hydralazine later in the afternoon. She routinely refuses heparin. Pt reports that the dilaudid takes her incision pain from 10/10 to 0/10 every time, but it does not last long. Taking Bendryl for left LE incisional itching.
--- NOTE | 2025-01-12 18:35 | PC.NURSE ---
Pt reports left arm pain 09/04. She reports that she had left rib pain earlier, which has resolved. No other radiating pain, numbness, tingling. She has had nausea off and on all day.
[2025-01-12 20:00] VITALS: BP 111/59; PULSE 90; RESP 16; TEMP 36.6; O2SAT 96
[2025-01-13] VITALS (8 sets, daily range): BP systolic 115–149; BP diastolic 70–83; PULSE 82–95; RESP 16–18; TEMP 36.1–36.8; O2SAT 96–99
[2025-01-13] MEDS: 0.9 % Sodium Chloride Flush 3 ML SYRINGE IVFLUSH ×3 (08:03→20:15)
[2025-01-13 09:31] LABS: Troponin-I High Sensitivity 84.0 ng/L (<3.5-17.0)
--- NOTE | 2025-01-13 10:46 | MHC.CM.PN ---
Addendum entered by Ksenia Villafuerte RN 01/13/25 12:41: CM RECEIVED CALL FROM CM EMERGENCY DEPARTMENT AIDE REPORTING PT WON HER APPEAL OF DISCHARGE. Original Note: PER PREVIOUS CM NOTE PT APPEALED DC ON 01/12/25, RESULT PENDING, MARIA LUZ _[id number]. PER HOSPITALIST ANTIC [facility]
[2025-01-13 16:31] LABS: Glucose, Whole Blood 162 mg/dL (60-115)
--- NOTE | 2025-01-13 16:36 | HO.PM.IMPN ---
Subjective Subjective Date of Service: 01/13/25 Interval History: No new complaints or issues Troponin repeat has plateaued Review of Systems Review of Systems: Yes Unobtainable due to mental condition Physical Exam Exam: Exam: General:Cooperative, no acute distress, alert and oriented x3 HEENT:Normocephalic, atraumatic. Cervical tenderness. No meningeal signs. Eyes:Normal appearance, EOMI. Legally blind right eye. Neck: cervical tenderness. Cardiac:Regular rate and rhythm, normal S1/S2, no murmurs. Respiratory:Clear to auscultation, no distress. GI:Soft, nontender, nondistended. Neuro:Alert, oriented, moves all extremities, no focal deficits. Skin: No rashes. MSK: Left BKA with dressing in place right lower extremity with dressing in place. Vital Signs: Vital Signs: Last Vital Signs Temp 96.9 F 01/13/25 15:15 Pulse 86 01/13/25 15:15 Resp 17 01/13/25 15:15 BP 115/83 01/13/25 15:15 Pulse Ox 98 01/13/25 15:15 O2 Del Method Room Air 01/13/25 15:15 BMI result Body Mass Index 30.2 Objective Data Active Medications Acetaminophen (Acetaminophen 325 Mg Tablet) 650 mg PO Q6H PRN PRN Reason: Pain, Mild 1-3,fever,headache Albuterol Sulfate (Albuterol Sulfate 90 Mcg 8 Gm Inhaler) 2 puff INHALE Q6H PRN PRN Reason: Wheezing Calcium Carbonate (Calcium Carbonate 750 Mg Tab.Chew) 750 mg PO Q4H PRN PRN Reason: Heartburn Carvedilol (Carvedilol 12.5 Mg Tablet) 12.5 mg PO BID [facility]; Protocol Last Admin: 01/13/25 08:03 Dose: Not Given Documented By: PER Non-Admin Reason: Patient Refused Dextrose (Dextrose 50 % 25 Gm/50 Ml Syringe) 25 gm IVPUSH Q15M PRN; Protocol PRN Reason: per Hypoglycemia Standing Ord. Diphenhydramine HCl (Diphenhydramine Hcl 50 Mg/Ml Vial) 25 mg IVPUSH Q6H PRN PRN Reason: Itching Last Admin: 01/13/25 13:11 Dose: 25 mg Documented By: BEAU Glucose (Glucose Gel 15 Gm Gel..Gram.) 15 gm PO Q15M PRN; Protocol PRN Reason: per Hypoglycemia Standing Ord. Heparin Sodium (Porcine) (Heparin Sodium,Porcine 5,000 Unit/Ml Vial) 5,000 unit SUBCUT Q12H [facility] Last Admin: 01/13/25 04:26 Dose: Not Given Documented By: SHARON Non-Admin Reason: Patient Refused Hydralazine HCl (Hydralazine Hcl 50 Mg Tablet) 50 mg PO TID [facility]; Protocol Last Admin: 01/13/25 15:27 Dose: Not Given Documented By: BEAU Non-Admin Reason: Patient Refused Hydromorphone HCl (Hydromorphone Hcl 1 Mg/Ml Syringe) 0.5 mg IVPUSH Q4H PRN; Protocol PRN Reason: Pain, Severe (Pain Scale 7-10) Last Admin: 01/13/25 15:39 Dose: 0.5 mg Documented By: BEAU Insulin Human Lispro (Insulin Lispro 100 Unit/Ml 3 Ml Vial) 0 unit SUBCUT QIDACHS [facility]; Protocol Last Admin: 01/13/25 13:16 Dose: Not Given Documented By: BEAU Non-Admin Reason: Patient Refused Magnesium Hydroxide (Milk Of Magnesia 30 Ml Oral.Susp) 30 ml PO DAILY PRN PRN Reason: Constipation Melatonin (Melatonin 3 Mg Tablet) 6 mg PO BEDTIME PRN PRN Reason: Insomnia Metoclopramide HCl (Metoclopramide Hcl 10 Mg Tablet) 10 mg PO Q6H PRN PRN Reason: Nausea and Vomiting Nitroglycerin (Nitroglycerin 0.4 Mg Tab.Subl) 0.4 mg SUBLINGUAL Q5M PRN PRN Reason: Angina Ondansetron HCl (Ondansetron Hcl 4 Mg/2 Ml Vial) 4 mg IVPUSH Q8H PRN PRN Reason: Nausea and Vomiting Last Admin: 01/13/25 13:11 Dose: 4 mg Documented By: BEAU Sodium Chloride (0.9 % Sodium Chloride Flush 3 Ml Syringe) [facility] Last Admin: 01/13/25 15:39 Dose: 3 ml Documented By: BEAU Labs 01/11/25 14:06 01/12/25 06:55 Labs: Laboratory Results - last 24 hr 01/13/25 01/13/25 08:57 16:26 POC Glucose 162 H Troponin I High Sens 84.0 H* Microbiology Microbiology Results: Microbiology 01/11/25 15:54 Urine Culture - Preliminary Urine Catheterized - Carrero Catheter Culture too young to evaluate. Assessment and Plan (1) Cardiomyopathy: Status: Acute (2) Type II diabetes mellitus: Status: Acute (3) Hyponatremia: Status: Acute (4) End-stage renal disease (ESRD): Status: Acute (5) ESRD on hemodialysis: Status: Acute (6) Central pontine myelinolysis: Status: Acute (7) Multiple sclerosis: Status: Acute Plan 34 year old female with ESRD on HD TuThSa, DM2 with polyneuropathy/retinopathy + legal blindness, PAD s/p R TMA and recent Left BKA, chronic hypoxia on 3-4L O2, chronic HFrEF, multiple HD catheter line infections with MSSA/Stenotrophomonas/Pseudomonas, mood disorder, and chronic pain with opioid-seeking behavior; recently diagnosed MS who presents with Chest pain found to have hyperkalemia requiring urgent HD. Chest pain, mild increase in trop likely from renal failure recheck, and cardiology if persist hyperK due to missed HD K is normal HTN Continue baseline medication Chronic osteo s/p Left BKA 01/05 Thick dressings and Kerlix with Izaiah bandage change daily Dr. Arias will look at wound DM2 SSI, POCs chronic hypoxia 3-4L O2 via NC prn chronic HFrEF carvedilol HD to manage volume Anemia in CKD H/H at stable compared to previous Thrombocytopenia Chronic chronic pain syndrome oxycodone when med rec completed [employer] - VTE: Heparin 5000 t.i.d. SQ - CODE STATUS: Full code - DIET: Renal Total time managing care of this patient today: 35 minutes. Quality Stroke Does the patient have a stroke diagnosis?: No VTE Prior VTE?: No VTE Risk Level:: Medical - moderate - high VTE Device Contraindication: Treatment Not Indicated VTE Drug Contraindication: N/A - Med Ordered
[2025-01-13 20:00] LABS: Glucose, Whole Blood 159 mg/dL (60-115)
[2025-01-14] VITALS (7 sets, daily range): BP systolic 125–168; BP diastolic 61–88; PULSE 69–97; RESP 15–18; TEMP 36.1–36.9; O2SAT 96–100
--- NOTE | 2025-01-14 09:29 | P.CONCA_ITS ---
History of Present Illness History of Present Illness Date of Service: 01/14/25 Narrative: This is a cardiology consultation regarding chest pain. She was last seen in the hospital in June of this year. She has ESRD on hemodialysis and hypertension. Based on prior echocardiogram, she has got cardiomyopathy and severe left ventricular hypertrophy from poorly controlled hypertension. She had treatment for left foot osteomyelitis recently and has had left below-knee amputation on the 10th of this month. There was a lot of noncompliance in the past and supposedly got better but per recent discharge summary, there is again mentioned of missing dialysis. Patient was recently discharged after the hospitalizations but again one further missed dialysis session. This time, she states she did not happen transport for that. After hospitalization, it seems that she required urgent hemodialysis. With regard to chest pains, she states she feels the pain in the left chest. This gets worse with the breathing and also goes to the left shoulder. Seems somewhat pleuritic in nature. Could be all related to missing dialysis. Underlying coronary disease certainly possible in her case. However, the pain itself is not very anginal sounding. Currently, patient is getting dialysis. Review of Systems 2 Review of Systems: Yes all other systems are reviewed and are negative Constitutional: Constitutional: Reports as per HPI and Reports no additional constitutional complaints Eyes: Eyes: Reports as per HPI and Denies no additional eye complaints ENT: Denies system reviewed and no additional complaints, except as documented and Reports as per HPI Cardiovascular: Cardiovascular: Reports as per HPI, Reports no additional cardiovascular complaints, Denies acrocyanosis, Denies cool extremities, Reports chest pain, Denies leg edema, Denies lightheadedness, Denies palpitations and Denies dyspnea Respiratory: Respiratory: Reports as per HPI, Denies no additional respiratory complaints and Denies dyspnea Gastrointestinal: Gastrointestinal: Reports as per HPI and Denies no additional gastrointestinal complaints Genitourinary: Genitourinary: Reports as per HPI Musculoskeletal: Musculoskeletal: Reports no additional musculoskeletal complaints and Reports as per HPI Integumentary/Breasts: Skin/Breast: Reports system reviewed and no additional complaints, except as docu Neurologic: Reports system reviewed and no additional complaints, except as documented and Reports as per HPI Psychiatric: Psychiatric: Reports no additional psychiatric complaints and Reports as per HPI Endocrine: Endocrine: Reports no additional endocrine complaints, Reports as per HPI and Denies palpitations Hematologic/Lymphatic: Hematologic/Lymphatic: Reports no additional hematologic/lymphatic complaints and Reports as per HPI Allergic/Immunologic: Allergic/Immunologic: Reports no additional allergic/immunologic complaints and Reports as per HPI [facility] Past Medical History Medical History (Updated 01/14/25 @ 09:36 by Brandyn Bhardwaj MD) Central pontine myelinolysis ESRD on hemodialysis End-stage renal disease (ESRD) Cardiomyopathy Cerebral microvascular disease Steroid-induced hyperglycemia Relapsing remitting multiple sclerosis Renal failure Multiple sclerosis Cerebral infarction Hyperkalemia ESRD on dialysis Hypoxia End stage renal disease on dialysis Chronic ulcer of right foot due to diabetes mellitus Chronic ulcer of left foot due to diabetes mellitus DM foot ulcer Hypotonic neurogenic bladder Diabetic polyneuropathy Hypertensive emergency Decompensated heart failure Renal failure Hypertension, uncontrolled Medical non-compliance Pericarditis Unspecified hypertension, condition or complication Metabolic acidosis Gastroparesis End stage chronic kidney disease Chronic kidney disease Anemia Plantar ulcer of left foot MDD (major depressive disorder) CKD (chronic kidney disease) Hypertension Vomiting Chronic pain Non-compliance with renal dialysis Diabetic foot ulcer associated with type 2 diabetes mellitus HFrEF (heart failure with reduced ejection fraction) delivery delivered Anemia in chronic kidney disease (CKD) CKD (chronic kidney disease) Abnormal finding on echocardiogram Elevated troponin Acute worsening of stage 3 chronic kidney disease Generalized edema Sepsis Cellulitis Pleural effusion Atypical chest pain Bone infection PAD (peripheral artery disease) Cellulitis and abscess of foot Osteomyelitis Asthma Depression with anxiety Diabetic retinopathy Blind right eye Diabetes Back pain Family History Family History Mother Coronary artery disease Myocardial infarction Stroke Diabetes mellitus Father Myocardial infarction Surgical History Surgical History (Updated 01/12/25 @ 15:47 by Donya Rodrigues Wicho) Below-knee amputation of left lower extremity (~01/05/25) Tubal ligation status Previous section Hx laparoscopic cholecystectomy Hx of surgical procedure (~09/11/23) 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 Social History Social History Household Members: Family Household Members Other:: sister, brother, [id number] Housing: Apartment Housing Other:: Apartment, 1st floor Are you a primary patient care technician instructor to a significant other at home: No Do you presently have visiting nurse or other home services: Yes Alcohol intake: never Comment: patient refusing bed alarm Patient Tobacco Use Status: Never used Tobacco e-Cigarette/Vaping Use: Never Used Second Hand Smoke Exposure: No Currently Displaying Signs/Symptoms of Drug Intoxication Withdrawal: No Advance Directives: Yes Advance Directives on File: Yes Advance Directives Date on File: 08/28/23 Do you have a plan to hurt others: No Plan Recently lost weight without trying: No Nutrition Risks: No Nutritional Risk Patient : No service: No Current occupational status: unemployed and disabled Gender identity: Female Meds Allergies Allergy/AdvReac Type Severity Reaction Status Date / Time gabapentin Allergy Severe Facial Verified 01/11/25 12:40 Swelling tramadol Allergy Severe Facial Verified 01/11/25 12:40 Swelling azithromycin (From Zithromax) Allergy Intermediate Hives Verified 01/11/25 12:40 morphine (MORPHINE) Allergy Intermediate Itching Verified 01/11/25 12:40 vancomycin AdvReac Intermediate Itching Verified 01/11/25 12:40 Active Medications: Current Medications Acetaminophen (Acetaminophen 325 Mg Tablet) 650 mg PO Q6H PRN PRN Reason: Pain, Mild 1-3,fever,headache Albuterol Sulfate (Albuterol Sulfate 90 Mcg 8 Gm Inhaler) 2 puff INHALE Q6H PRN PRN Reason: Wheezing Calcium Carbonate (Calcium Carbonate 750 Mg Tab.Chew) 750 mg PO Q4H PRN PRN Reason: Heartburn Carvedilol (Carvedilol 12.5 Mg Tablet) 12.5 mg PO BID [facility]; Protocol Last Admin: 01/14/25 08:06 Dose: Not Given Dextrose (Dextrose 50 % 25 Gm/50 Ml Syringe) 25 gm IVPUSH Q15M PRN; Protocol PRN Reason: per Hypoglycemia Standing Ord. Diphenhydramine HCl (Diphenhydramine Hcl 50 Mg/Ml Vial) 25 mg IVPUSH Q6H PRN PRN Reason: Itching Last Admin: 01/14/25 04:04 Dose: 25 mg Glucose (Glucose Gel 15 Gm Gel..Gram.) 15 gm PO Q15M PRN; Protocol PRN Reason: per Hypoglycemia Standing Ord. Heparin Sodium (Porcine) (Heparin Sodium,Porcine 5,000 Unit/Ml Vial) 5,000 unit SUBCUT Q12H [facility] Last Admin: 01/14/25 04:59 Dose: Not Given Hydralazine HCl (Hydralazine Hcl 50 Mg Tablet) 50 mg PO TID [facility]; Protocol Last Admin: 01/14/25 08:07 Dose: Not Given Insulin Human Lispro (Insulin Lispro 100 Unit/Ml 3 Ml Vial) 0 [facility]; Protocol Last Admin: 01/14/25 08:05 Dose: Not Given Magnesium Hydroxide (Milk Of Magnesia 30 Ml Oral.Susp) 30 ml PO DAILY PRN PRN Reason: Constipation Melatonin (Melatonin 3 Mg Tablet) 6 mg PO BEDTIME PRN PRN Reason: Insomnia Metoclopramide HCl (Metoclopramide Hcl 10 Mg Tablet) 10 mg PO Q6H PRN PRN Reason: Nausea and Vomiting Nitroglycerin (Nitroglycerin 0.4 Mg Tab.Subl) 0.4 mg SUBLINGUAL Q5M PRN PRN Reason: Angina Ondansetron HCl (Ondansetron Hcl 4 Mg/2 Ml Vial) 4 mg IVPUSH Q8H PRN PRN Reason: Nausea and Vomiting Last Admin: 01/13/25 13:11 Dose: 4 mg Oxycodone HCl (Oxycodone Hcl Immed Release 5 Mg Tablet) 10 mg PO Q4H PRN PRN Reason: Pain, Severe (Pain Scale 7-10) Sodium Chloride (0.9 % Sodium Chloride Flush 3 Ml Syringe) [facility] Last Admin: 01/14/25 08:06 Dose: Not Given Home Medications ?Medication ?Instructions ?Recorded ?Confirmed ?Last Taken ?Type albuterol sulfate 90 mcg/actuation 2 puff inhalation Q 6H PRN wheezing 01/15/24 01/11/25 12/09/24 History aerosol inhaler (Ventolin HFA) nitroglycerin 0.4 mg sublingual 0.4 mg sublingual D IRECTED PRN 01/15/24 01/11/25 12/09/24 History tablet Angina calcium carbonate (Tums) 200 mg PO TIDWM PRN Acid Ref lux 07/03/24 01/11/25 12/09/24 History Physical Exam 2 Vital Signs: Vital Signs: Last Vital Signs Temp 98.5 F 01/14/25 04:50 Pulse 69 01/14/25 04:50 Resp 16 01/14/25 04:50 BP 139/65 01/14/25 04:50 Pulse Ox 96 01/14/25 04:50 O2 Del Method Room Air 01/14/25 04:50 BMI result Body Mass Index 30.2 Const: General: comfortable and no acute distress O rientation/consciousness: patient oriented x3 HEENT: Other: Unremarkable Head: Yes normal to inspection Neck: Neck: Yes normal visual inspection Chest: Chest palpation & inspection: normal inspection of the chest Resp: Auscultation: clear to auscultation bilaterally Cardio: Palpation: normal PMI Heart sounds: S1 normal heart sound present, S2 normal heart sound present, no gallops, no murmurs and no rubs GI: Palpation (GI): Soft to palpation Back/Spine/Pelvis: Other: unremarkable Skin: General skin exam: no rashes or lesions noted Neuro: General: patient oriented x3 Extrem: General: Yes normal to inspection Psych: Mental Status: mental status grossly normal Objective Labs and Meds 01/11/25 14:06 01/12/25 06:55 Lab results: Laboratory Results - last 24 hr 01/13/25 01/13/25 01/13/25 08:57 16:26 19:56 POC Glucose 162 H 159 H Troponin I High Sens 84.0 H* ECG Interpretation: EKG with sinus rhythm at 97/Min; possible left atrial enlargement; leftward axis and right bundle-branch block and similar to prior. Assessment and Plan (1) Precordial chest pain: Status: Acute (2) Cardiomyopathy: Status: Acute (3) ESRD on hemodialysis: Status: Acute Plan Clinically, chest pain itself sounds pleuritic in nature. EKGs unchanged from before. She is chronically high troponin levels and the current range is similar to prior. Echocardiogram from August with LVEF of 50-55%. No significant valvular findings. Trivial pericardial effusion. In May, it was 41%. At that time, she also had severe left ventricular hypertrophy and small pericardial effusion. Myocardial perfusion imaging study from 2022. At that time, reported have mild ischemia versus artifact in the mid anteroseptal wall. Gated LVEF was 79% during stress and 38% during rest. Overall, she has got many comorbidities and risk factors for coronary disease but the current pain seems rather pleuritic in nature. Could be from noncompliance/missing dialysis/arrhythmic pericarditis. Hopefully, getting back on a regular dialysis schedule we will help. Considering high degree of noncompliance and poor insight, we will hold off on any aggressive cardiac workup at this time. Discussed with . Procedures Date of Service Date of Service: 01/14/25
[2025-01-14] MEDS: oxyCODONE HCl Immed Release 5 MG TABLET 10 MG PO ×4 (09:31→21:00)
--- NOTE | 2025-01-14 12:00 | CA_ITS ---
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 The calculated ejection fraction is 51% by biplane method. Findings Left Ventricle Normal left ventricular cavity size. There is severely increased left ventricular wall thickness. The left ventricular systolic function is mildly decreased. The calculated ejection fraction is 51% by biplane method. There is mild global hypokinesis. Pericardium/Pleural There is a trivial pericardial effusion. Prior Study Comparison No significant change compared to prior study dated: 09/05/2024. Measurements 2D Linear Measurements IVSd: 1.51 0.6-0.9/0.6-1.0 cm LVIDd: 4.08 3.9-5.3/4.2-5.9 cm LVIDd Index: 2.10 2.4-3.2/2.2-3.1 cm/m2 LVIDs: 3.08 2.0-3.6 cm LVPWd: 1.53 0.7-1.1 cm LV Mass: 304.75 67-162/88-224 g LV Mass Index: 157.09 43-95/49-115 g/m2 2D Systolic Function EF 4C: 50.50 >55% EF 2C: 56.80 >55% EF BiP: 51.20 >55% Updated in Other Vendor System with Status of Final Brandyn Bhardwaj MD electronically signed on 01/14/2025 4:33:47 PM with status of Final
--- NOTE | 2025-01-14 12:25 | MHC.CM.PN ---
Per MD not medically cleared for dc at this time. Awaiting echo. CM will continue to follow.
[2025-01-14 16:08] LABS: Glucose, Whole Blood 114 mg/dL (60-115)
--- NOTE | 2025-01-14 16:08 | P.PNIM_ITS ---
Subjective Subjective Date of Service: 01/14/25 Interval History: No new complaints today. Has been endorsing intermittent on and off chest pain; precordial and atypical Seen during hemodialysis session. Discussed transitioned from IV to oral analgesia, and plans for cardiology review. Review of Systems Review of Systems: Yes all other systems are reviewed and are negative Physical Exam 2 Exam: Exam: General:Cooperative, no acute distress, alert and oriented x3 HEENT:Normocephalic, atraumatic. Cervical tenderness. No meningeal signs. Eyes:Normal appearance, EOMI. Legally blind right eye. Neck: cervical tenderness. Cardiac:Regular rate and rhythm, normal S1/S2, no murmurs. Respiratory:Clear to auscultation, no distress. GI:Soft, nontender, nondistended. Neuro:Alert, oriented, moves all extremities, no focal deficits. Skin: No rashes. MSK: Left BKA with dressing in place right lower extremity with dressing in place. Vital Signs: Vital Signs: Last Vital Signs Temp 97.4 F 01/14/25 15:15 Pulse 93 01/14/25 15:15 Resp 16 01/14/25 15:15 BP 149/74 H 01/14/25 15:15 Pulse Ox 98 01/14/25 15:15 O2 Del Method Room Air 01/14/25 15:15 BMI result Body Mass Index 30.2 Objective Data Active Medications Acetaminophen (Acetaminophen 325 Mg Tablet) 650 mg PO Q6H PRN PRN Reason: Pain, Mild 1-3,fever,headache Albuterol Sulfate (Albuterol Sulfate 90 Mcg 8 Gm Inhaler) 2 puff INHALE Q6H PRN PRN Reason: Wheezing Calcium Carbonate (Calcium Carbonate 750 Mg Tab.Chew) 750 mg PO Q4H PRN PRN Reason: Heartburn Carvedilol (Carvedilol 12.5 Mg Tablet) 12.5 mg PO BID [facility]; Protocol Last Admin: 01/14/25 08:06 Dose: Not Given Documented By: NITIN Non-Admin Reason: Off unit: Dialysis Dextrose (Dextrose 50 % 25 Gm/50 Ml Syringe) 25 gm IVPUSH Q15M PRN; Protocol PRN Reason: per Hypoglycemia Standing Ord. Diphenhydramine HCl (Diphenhydramine Hcl 50 Mg/Ml Vial) 25 mg IVPUSH Q6H PRN PRN Reason: Itching Last Admin: 01/14/25 09:31 Dose: 25 mg Documented By: NITIN Glucose (Glucose Gel 15 Gm Gel..Gram.) 15 gm PO Q15M PRN; Protocol PRN Reason: per Hypoglycemia Standing Ord. Heparin Sodium (Porcine) (Heparin Sodium,Porcine 5,000 Unit/Ml Vial) 5,000 unit SUBCUT Q12H [facility] Last Admin: 01/14/25 04:59 Dose: Not Given Documented By: MAI Non-Admin Reason: Patient Refused Hydralazine HCl (Hydralazine Hcl 50 Mg Tablet) 50 mg PO TID [facility]; Protocol Last Admin: 01/14/25 13:55 Dose: Not Given Documented By: NITIN Non-Admin Reason: Patient Refused Insulin Human Lispro (Insulin Lispro 100 Unit/Ml 3 Ml Vial) 0 unit SUBCUT QIDACHS [facility]; Protocol Last Admin: 01/14/25 11:55 Dose: Not Given Documented By: NITNI Non-Admin Reason: refused poc check Magnesium Hydroxide (Milk Of Magnesia 30 Ml Oral.Susp) 30 ml PO DAILY PRN PRN Reason: Constipation Melatonin (Melatonin 3 Mg Tablet) 6 mg PO BEDTIME PRN PRN Reason: Insomnia Metoclopramide HCl (Metoclopramide Hcl 10 Mg Tablet) 10 mg PO Q6H PRN PRN Reason: Nausea and Vomiting Nitroglycerin (Nitroglycerin 0.4 Mg Tab.Subl) 0.4 mg SUBLINGUAL Q5M PRN PRN Reason: Angina Ondansetron HCl (Ondansetron Hcl 4 Mg/2 Ml Vial) 4 mg IVPUSH Q8H PRN PRN Reason: Nausea and Vomiting Last Admin: 01/14/25 13:54 Dose: 4 mg Documented By: NITIN Oxycodone HCl (Oxycodone Hcl Immed Release 5 Mg Tablet) 10 mg PO Q4H PRN PRN Reason: Pain, Severe (Pain Scale 7-10) Last Admin: 01/14/25 13:49 Dose: 10 mg Documented By: NITIN Sodium Chloride (0.9 % Sodium Chloride Flush 3 Ml Syringe) [facility] Last Admin: 01/14/25 08:06 Dose: Not Given Documented By: NITIN Non-Admin Reason: No Insulin Coverage Labs 01/11/25 14:06 01/12/25 06:55 Labs: Laboratory Results - last 24 hr 01/13/25 01/13/25 16:26 19:56 POC Glucose 162 H 159 H Microbiology Microbiology Results: Microbiology 01/11/25 15:54 Urine Culture - Final Urine Catheterized - Carrero Catheter Streptococcus viridans group Assessment and Plan (1) Cardiomyopathy: Status: Acute (2) Precordial chest pain: Status: Acute (3) Type II diabetes mellitus: Status: Acute (4) End-stage renal disease (ESRD): Status: Acute (5) ESRD on hemodialysis: Status: Acute (6) Status post below-knee amputation of left lower extremity: Status: Acute (7) Central pontine myelinolysis: Status: Acute Plan 34 year old female with ESRD on HD TuThSa, DM2 with polyneuropathy/retinopathy + legal blindness, PAD s/p R TMA and recent Left BKA, chronic hypoxia on 3-4L O2, chronic HFrEF, multiple HD catheter line infections with MSSA/Stenotrophomonas/Pseudomonas, mood disorder, and chronic pain with opioid- seeking behavior; recently diagnosed MS who presents with Chest pain found to have hyperkalemia requiring urgent HD. Chest pain, mild increase in trop likely from renal failure Troponin level plateaued, similar to prior. Cardiology was consulted, recommendations greatly appreciated. 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 Holding off aggressive cardiac workup at this time hyperK due to missed HD K is normal HTN Continue baseline medication Chronic osteo s/p Left BKA 01/05 Thick dressings and Kerlix with Izaiah bandage change daily Dr. Arias will look at wound DM2 SSI, POCs chronic hypoxia 3-4L O2 via NC prn chronic HFrEF carvedilol HD to manage volume Anemia in CKD H/H at stable compared to previous Thrombocytopenia Chronic chronic pain syndrome oxycodone when med rec completed [employer] [employer] - VTE: Heparin 5000 t.i.d. SQ - CODE STATUS: Full code - DIET: Renal - DISPOSITION: Possible discharge tomorrow Total time managing care of this patient today: 35 minutes. Quality Stroke Does the patient have a stroke diagnosis?: No VTE Prior VTE?: No VTE Risk Level:: Medical - moderate - high VTE Device Contraindication: Treatment Not Indicated VTE Drug Contraindication: N/A - Med Ordered
[2025-01-14] MEDS: oxyCODONE HCl ER 10 MG TAB.ER.12H PO (17:11)
[2025-01-14 20:36] LABS: Glucose, Whole Blood 170 mg/dL (60-115)
[2025-01-14] MEDS: 0.9 % Sodium Chloride Flush 3 ML SYRINGE IVFLUSH (21:00)
[2025-01-15] VITALS (7 sets, daily range): BP systolic 134–190; BP diastolic 63–88; PULSE 83–90; RESP 16–18; TEMP 35.9–36.3; O2SAT 96–99
[2025-01-15] MEDS: oxyCODONE HCl Immed Release 5 MG TABLET 10 MG PO (05:19)
--- NOTE | 2025-01-15 09:20 | PM.PNCARD ---
Subjective Subjective Date of Service: 01/15/25 Interval history: Patient does not have any further chest pain. Lying down comfortably. Review of Systems Review of Systems Yes all other systems are reviewed and are negative Constitutional: Reports as per HPI and Reports no additional constitutional complaints Eyes: Reports as per HPI and Denies no additional eye complaints Denies system reviewed and no additional complaints, except as documented and Reports as per HPI Cardiovascular: Reports as per HPI, Reports no additional cardiovascular complaints, Denies acrocyanosis, Denies cool extremities, Denies chest pain, Denies leg edema, Denies lightheadedness, Denies palpitations and Denies dyspnea Respiratory: Reports as per HPI, Denies no additional respiratory complaints and Denies dyspnea Gastrointestinal: Reports as per HPI and Denies no additional gastrointestinal complaints Genitourinary: Reports as per HPI Musculoskeletal: Reports no additional musculoskeletal complaints and Reports as per HPI Skin/Breast: Reports system reviewed and no additional complaints, except as docu Reports system reviewed and no additional complaints, except as documented and Reports as per HPI Psychiatric: Reports no additional psychiatric complaints and Reports as per HPI Endocrine: Reports no additional endocrine complaints, Reports as per HPI and Denies palpitations Hematologic/Lymphatic: Reports no additional hematologic/lymphatic complaints and Reports as per HPI Allergic/Immunologic: Reports no additional allergic/immunologic complaints and Reports as per HPI Physical Exam Vital Signs: Last Vital Signs Temp 97.3 F 01/15/25 07:29 Pulse 83 01/15/25 07:29 Resp 16 01/15/25 07:29 BP 134/63 01/15/25 07:29 Pulse Ox 97 01/15/25 07:29 O2 Del Method Room Air 01/15/25 07:29 BMI result Body Mass Index 30.2 Const General: comfortable and no acute distress Orientation/consciousness: patient oriented x3 HEENT Other: Unremarkable Head: Yes normal to inspection Neck Neck: Yes normal visual inspection Chest Chest palpation & inspection: normal inspection of the chest Resp Auscultation: clear to auscultation bilaterally Cardio Palpation: normal PMI Heart sounds: S1 normal heart sound present, S2 normal heart sound present, no gallops, no murmurs and no rubs GI Palpation (GI): Soft to palpation Back/Spine/Pelvis Other: unremarkable Skin General skin exam: no rashes or lesions noted Neuro General: patient oriented x3 Extrem Other: Left BKA. General: Yes normal to inspection Psych Mental Status: mental status grossly normal Objective Labs and Meds 01/11/25 14:06 01/12/25 06:55 Lab results: Laboratory Results - last 24 hr 01/14/25 01/14/25 16:04 20:27 POC Glucose 114 170 H Progress Note: A&P Assessment and plan (1) Precordial chest pain: Status: Acute (2) Cardiomyopathy: Status: Acute (3) ESRD on hemodialysis: Status: Acute Plan Clinically, chest pain itself sounds pleuritic in nature. EKGs unchanged from before. She is chronically high troponin levels and the current range is similar to prior. Echocardiogram with LVEF of 51%. Trivial pericardial effusion. Myocardial perfusion imaging study from 2022. At that time, reported have mild ischemia versus artifact in the mid anteroseptal wall. Overall, she has got many comorbidities and risk factors for coronary disease but the current pain seems rather pleuritic in nature. Could be from noncompliance/missing dialysis/uremic pericarditis. Currently, that discomfort is resolved after dialysis. Main recommendation would be to continue dialysis without interruption and we discussed about this today. Considering high degree of noncompliance and poor insight, we will hold off on any aggressive cardiac workup at this time. Discussed with hospitalist. Time Spent With Patient Time: Total time managing care of this patient today ____ minutes. Progress Note: Quality Stroke Does the patient have a stroke diagnosis?: No Procedures Date of Service Date of Service: 01/15/25
[2025-01-15] MEDS: 0.9 % Sodium Chloride Flush 3 ML SYRINGE IVFLUSH ×2 (09:24→23:57)
[2025-01-15] MEDS: oxyCODONE HCl ER 10 MG TAB.ER.12H PO ×2 (09:24→21:55)
--- NOTE | 2025-01-15 10:38 | P.CONGS_ITS ---
History of Present Illness Consult details Consult date: 01/15/25 <Regino Sauceda PA-C - Last Filed: 01/15/25 10:48> Reason for consult: wound care (S/p left BKA, suture removal?) <Regino Sauceda PA-C - Last Filed: 01/15/25 10:48> Requesting physician: Ellen Frankel <Regino Sauceda PA-C - Last Filed: 01/15/25 10:48> Narrative: 34 year old female with a complicated medical history inclduing ESRD on dialysis, PAD, MS, bilateral TMA, chronic foot ulcers, who is well known to our service, seen in consult for possible suture removal following left BKA. Patient had left BKA on 01/05/[address] Rajput, missed her follow-up appointment in the office yesterday due to being admitted to the hospital. Per hospitalist team planning for discharge tomorrow. This has been going well. Endorses some occasional pain but overall appears to be healing well. She has no other complaints. Has been keeping this elevated. Reports nursing staff changing dressings daily <Regino Sauceda PA-C - Last Filed: 01/15/25 10:48> PMF Past Medical History Medical History: Medical History (Updated 01/16/25 @ 00:01 by Kane Mueller) Central pontine myelinolysis ESRD on hemodialysis End-stage renal disease (ESRD) Cardiomyopathy Cerebral microvascular disease Steroid-induced hyperglycemia Relapsing remitting multiple sclerosis Renal failure Multiple sclerosis Cerebral infarction Hyperkalemia ESRD on dialysis Hypoxia End stage renal disease on dialysis Chronic ulcer of right foot due to diabetes mellitus Chronic ulcer of left foot due to diabetes mellitus DM foot ulcer Hypotonic neurogenic bladder Diabetic polyneuropathy Hypertensive emergency Decompensated heart failure Renal failure Hypertension, uncontrolled Medical non-compliance Pericarditis Unspecified hypertension, condition or complication Metabolic acidosis Gastroparesis End stage chronic kidney disease Chronic kidney disease Anemia Plantar ulcer of left foot MDD (major depressive disorder) CKD (chronic kidney disease) Hypertension Vomiting Chronic pain Non-compliance with renal dialysis Diabetic foot ulcer associated with type 2 diabetes mellitus HFrEF (heart failure with reduced ejection fraction) delivery delivered Anemia in chronic kidney disease (CKD) CKD (chronic kidney disease) Abnormal finding on echocardiogram Elevated troponin Acute worsening of stage 3 chronic kidney disease Generalized edema Sepsis Cellulitis Pleural effusion Atypical chest pain Bone infection PAD (peripheral artery disease) Cellulitis and abscess of foot Osteomyelitis Asthma Depression with anxiety Diabetic retinopathy Blind right eye Diabetes Back pain <Regino Sauceda PA-C - Last Filed: 01/15/25 10:48> Family History Family History: Family History Mother Coronary artery disease Myocardial infarction Stroke Diabetes mellitus Father Myocardial infarction <Regino Sauceda PA-C - Last Filed: 01/15/25 10:48> Surgical History Surgical History: Surgical History (Updated 01/16/25 @ 00:01 by Kane Mueller) Below-knee amputation of left lower extremity (~01/05/25) Tubal ligation status Previous section Hx laparoscopic cholecystectomy Hx of surgical procedure (~09/11/23) 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 <Regino Sauceda PA-C - Last Filed: 01/15/25 10:48> Social History Social History: Social History Household Members: Family Household Members Other:: sister, brother, [id number] Housing: Apartment Housing Other:: Apartment, 1st floor Are you a primary director of career resources to a significant other at home: No Do you presently have visiting nurse or other home services: Yes Alcohol intake: never Comment: patient refusing bed alarm Patient Tobacco Use Status: Never used Tobacco e-Cigarette/Vaping Use: Never Used Second Hand Smoke Exposure: No Currently Displaying Signs/Symptoms of Drug Intoxication Withdrawal: No Advance Directives: Yes Advance Directives on File: Yes Advance Directives Date on File: 08/28/23 Do you have a plan to hurt others: No Plan Recently lost weight without trying: No Nutrition Risks: No Nutritional Risk Patient : No service: No Current occupational status: unemployed and disabled Gender identity: Female <Regino Sauceda PA-C - Last Filed: 01/15/25 10:48> Meds Allergies/Adverse reactions: Allergies Allergy/AdvReac Type Severity Reaction Status Date / Time gabapentin Allergy Severe Facial Verified 01/11/25 12:40 Swelling tramadol Allergy Severe Facial Verified 01/11/25 12:40 Swelling azithromycin (From Zithromax) Allergy Intermediate Hives Verified 01/11/25 12:40 morphine (MORPHINE) Allergy Intermediate Itching Verified 01/11/25 12:40 vancomycin AdvReac Intermediate Itching Verified 01/11/25 12:40 <Regino Sauceda PA-C - Last Filed: 01/15/25 10:48> Active Medications: Current Medications Acetaminophen (Acetaminophen 325 Mg Tablet) 650 mg PO Q6H PRN PRN Reason: Pain, Mild 1-3,fever,headache Albuterol Sulfate (Albuterol Sulfate 90 Mcg 8 Gm Inhaler) 2 puff INHALE Q6H PRN PRN Reason: Wheezing Calcium Carbonate (Calcium Carbonate 750 Mg Tab.Chew) 750 mg PO Q4H PRN PRN Reason: Heartburn Carvedilol (Carvedilol 12.5 Mg Tablet) 12.5 mg PO BID [facility]; Protocol Last Admin: 01/15/25 09:24 Dose: 12.5 mg Dextrose (Dextrose 50 % 25 Gm/50 Ml Syringe) 25 gm IVPUSH Q15M PRN; Protocol PRN Reason: per Hypoglycemia Standing Ord. Diphenhydramine HCl (Diphenhydramine Hcl 50 Mg/Ml Vial) 25 mg IVPUSH Q6H PRN PRN Reason: Itching Last Admin: 01/15/25 05:19 Dose: 25 mg Glucose (Glucose Gel 15 Gm Gel..Gram.) 15 gm PO Q15M PRN; Protocol PRN Reason: per Hypoglycemia Standing Ord. Heparin Sodium (Porcine) (Heparin Sodium,Porcine 5,000 Unit/Ml Vial) 5,000 unit SUBCUT Q12H [facility] Last Admin: 01/15/25 04:44 Dose: Not Given Hydralazine HCl (Hydralazine Hcl 50 Mg Tablet) 50 mg PO TID [facility]; Protocol Last Admin: 01/15/25 09:24 Dose: 50 mg Insulin Human Lispro (Insulin Lispro 100 Unit/Ml 3 Ml Vial) 0 unit SUBCUT QIDACHS [facility]; Protocol Last Admin: 01/15/25 07:42 Dose: Not Given Magnesium Hydroxide (Milk Of Magnesia 30 Ml Oral.Susp) 30 ml PO DAILY PRN PRN Reason: Constipation Melatonin (Melatonin 3 Mg Tablet) 6 mg PO BEDTIME PRN PRN Reason: Insomnia Metoclopramide HCl (Metoclopramide Hcl 10 Mg Tablet) 10 mg PO Q6H PRN PRN Reason: Nausea and Vomiting Nitroglycerin (Nitroglycerin 0.4 Mg Tab.Subl) 0.4 mg SUBLINGUAL Q5M PRN PRN Reason: Angina Ondansetron HCl (Ondansetron Hcl 4 Mg/2 Ml Vial) 4 mg IVPUSH Q8H PRN PRN Reason: Nausea and Vomiting Last Admin: 01/14/25 13:54 Dose: 4 mg Oxycodone HCl (Oxycodone Hcl Immed Release 5 Mg Tablet) 10 mg PO Q4H PRN PRN Reason: Pain, Severe (Pain Scale 7-10) Last Admin: 01/15/25 05:19 Dose: 10 mg Oxycodone HCl (Oxycodone Hcl Er 10 Mg Tab.Er.12h) 10 mg PO BID [facility] Last Admin: 01/15/25 09:24 Dose: 10 mg Sodium Chloride (0.9 % Sodium Chloride Flush 3 Ml Syringe) 3 ml IVFLUSH QSHIFT [facility]AS[facility] Last Admin: 01/15/25 09:24 Dose: 3 ml <Regino Sauceda PA-C - Last Filed: 01/15/25 10:48> Home medications: Home Medications ?Medication ?Instructions ?Recorded ?Confirmed ?Last Taken ?Type albuterol sulfate 90 mcg/actuation 2 puff inhalation Q 6H PRN wheezing 01/15/24 01/11/25 12/09/24 History aerosol inhaler (Ventolin HFA) nitroglycerin 0.4 mg sublingual 0.4 mg sublingual D IRECTED PRN 01/15/24 01/11/25 12/09/24 History tablet Angina calcium carbonate (Tums) 200 mg PO TIDWM PRN Acid Ref lux 07/03/24 01/11/25 12/09/24 History <LEXA Gomez Last Filed: 01/15/25 10:48> Physical Exam 2 Vital Signs: Vital Signs: Last Vital Signs Temp 97.3 F 01/15/25 07:29 Pulse 83 01/15/25 07:29 Resp 16 01/15/25 07:29 BP 134/63 01/15/25 07:29 Pulse Ox 97 01/15/25 07:29 O2 Del Method Room Air 01/15/25 07:29 BMI result Body Mass Index 30.2 <LEXA Gomez Last Filed: 01/15/25 10:48> Const: General: comfortable and no acute distress <Regino Sauceda PA-C - Last Filed: 01/15/25 10:48> Orientation/consciousness: patient oriented x3 <LEXA Gomez Last Filed: 01/15/25 10:48> Neuro: General: patient oriented x3 <Regino Sauceda PA-C - Last Filed: 01/15/25 10:48> Extrem: Other: Left BKA: Flap viable appears well-perfused, no necrosis some scabbing along suture line. Sutures remain in place. No notable edema, no redness or purulent drainage. <Regino Sauceda PA-C - Last Filed: 01/15/25 10:48> Results Labs Result diagrams: 01/11/25 14:06 01/12/25 06:55 <Regino Sauceda PA-C - Last Filed: 01/15/25 10:48> Labs: Abnormal lab results 01/14/25 Range/Units 20:27 POC Glucose 170 H (60-115) mg/dL Urine 01/11/25 Range/Units 15:44 Urine Color Yellow Urine Appearance Clear Urine pH 7.5 (5.0-9.0) Ur Specific [place] 1.015 (1.005-1.025) Urine Protein 300 (3+) H (Neg-Trace) mg/dL Urine Glucose (UA) 100 H (Negative) mg/dL All other labs normal. <Regino Sauceda PA-C - Last Filed: 01/15/25 10:48> Assessment and Plan (1) Status post below-knee amputation of left lower extremity: Status: Acute <Regino Sauceda PA-C - Last Filed: 01/15/25 10:48> BKA site on the left healing well No signs of infection Sutures intact next Sutures to not appear to be ready for removal so we will plan on removing this in the next 2 weeks in the office I explained the above with the patient Seen and examined independently <Tu Rajput MD - Last Filed: 01/16/25 09:22> 34 year old female with a complicated medical history inclduing ESRD on dialysis, PAD, MS, bilateral TMA, chronic foot ulcers, who is well known to our service, seen in consult for possible suture removal following left BKA[place] [id number] Rajput. Has been doing well, some intermittent pain associated with the amputation site but overall feeling better than prior to procedure. On exam the stump appears to be healing well, sutures remain in place. There was no edema, fluctuance, drainage or bleeding. I attempted to remove a suture from the lateral edge which resulted in some slight wound separation with the suture was previously tied. A short to my attention to the center of the incision site and attempted to remove the suture there which resulted in some slight wound separation again. At this point suture removal was aborted, patient can continue with daily dressing changes, continued to recommend elevation of the extremity. Hospitalist planning for discharge tomorrow. Patient can follow up in our office in about 2 weeks for evaluation and possible suture removal. <Regino Sauceda PA-C - Last Filed: 01/15/25 10:48> Procedures Date of Service Date of Service: 01/15/25 <Regino Sauceda PA-C - Last Filed: 01/15/25 10:48> 01/16/25 <Tu Rajput MD - Last Filed: 01/16/25 09:22>
--- NOTE | 2025-01-15 12:30 | HO.PM.IMPN ---
Subjective Subjective Date of Service: 01/15/25 Interval History: Persistent pain in the lower extremities Surgical Services evaluated the patient, and set up an outpatient follow up date for removal of remainder of jack Cardiology evaluated patient, recommendations greatly appreciated Review of Systems Review of Systems: Yes all other systems are reviewed and are negative Physical Exam Exam: Exam: General:Cooperative, no acute distress, alert and oriented x3 HEENT:Normocephalic, atraumatic. Cervical tenderness. No meningeal signs. Eyes:Normal appearance, EOMI. Legally blind right eye. Neck: cervical tenderness. Cardiac:Regular rate and rhythm, normal S1/S2, no murmurs. Respiratory:Clear to auscultation, no distress. GI:Soft, nontender, nondistended. Neuro:Alert, oriented, moves all extremities, no focal deficits. Skin: No rashes. MSK: Left BKA with dressing in place right lower extremity with dressing in place. Vital Signs: Vital Signs: Last Vital Signs Temp 97.0 F 01/15/25 11:30 Pulse 86 01/15/25 11:30 Resp 16 01/15/25 11:30 BP 144/68 H 01/15/25 11:30 Pulse Ox 97 01/15/25 11:30 O2 Del Method Room Air 01/15/25 11:30 BMI result Body Mass Index 30.2 Objective Data Active Medications Acetaminophen (Acetaminophen 325 Mg Tablet) 650 mg PO Q6H PRN PRN Reason: Pain, Mild 1-3,fever,headache Albuterol Sulfate (Albuterol Sulfate 90 Mcg 8 Gm Inhaler) 2 puff INHALE Q6H PRN PRN Reason: Wheezing Calcium Carbonate (Calcium Carbonate 750 Mg Tab.Chew) 750 mg PO Q4H PRN PRN Reason: Heartburn Carvedilol (Carvedilol 12.5 Mg Tablet) 12.5 mg PO BID [facility]; Protocol Last Admin: 01/15/25 09:24 Dose: 12.5 mg Documented By: SARAY Dextrose (Dextrose 50 % 25 Gm/50 Ml Syringe) 25 gm IVPUSH Q15M PRN; Protocol PRN Reason: per Hypoglycemia Standing Ord. Diphenhydramine HCl (Diphenhydramine Hcl 50 Mg/Ml Vial) 25 mg IVPUSH Q6H PRN PRN Reason: Itching Last Admin: 01/15/25 11:21 Dose: 25 mg Documented By: SARAY Glucose (Glucose Gel 15 Gm Gel..Gram.) 15 gm PO Q15M PRN; Protocol PRN Reason: per Hypoglycemia Standing Ord. Heparin Sodium (Porcine) (Heparin Sodium,Porcine 5,000 Unit/Ml Vial) 5,000 unit SUBCUT Q12H [facility] Last Admin: 01/15/25 04:44 Dose: Not Given Documented By: ELISE Non-Admin Reason: per her routine, declined heparin Hydralazine HCl (Hydralazine Hcl 50 Mg Tablet) 50 mg PO TID [facility]; Protocol Last Admin: 01/15/25 09:24 Dose: 50 mg Documented By: SARAY Insulin Human Lispro (Insulin Lispro 100 Unit/Ml 3 Ml Vial) 0 unit SUBCUT QIDACHS [facility]; Protocol Last Admin: 01/15/25 11:40 Dose: Not Given Documented By: SARAY Non-Admin Reason: pt refused POC Magnesium Hydroxide (Milk Of Magnesia 30 Ml Oral.Susp) 30 ml PO DAILY PRN PRN Reason: Constipation Melatonin (Melatonin 3 Mg Tablet) 6 mg PO BEDTIME PRN PRN Reason: Insomnia Metoclopramide HCl (Metoclopramide Hcl 10 Mg Tablet) 10 mg PO Q6H PRN PRN Reason: Nausea and Vomiting Nitroglycerin (Nitroglycerin 0.4 Mg Tab.Subl) 0.4 mg SUBLINGUAL Q5M PRN PRN Reason: Angina Ondansetron HCl (Ondansetron Hcl 4 Mg/2 Ml Vial) 4 mg IVPUSH Q8H PRN PRN Reason: Nausea and Vomiting Last Admin: 01/15/25 11:25 Dose: 4 mg Documented By: SARAY Oxycodone HCl (Oxycodone Hcl Immed Release 5 Mg Tablet) 10 mg PO Q4H PRN PRN Reason: Pain, Severe (Pain Scale 7-10) Last Admin: 01/15/25 05:19 Dose: 10 mg Documented By: ELISE Oxycodone HCl (Oxycodone Hcl Er 10 Mg Tab.Er.12h) 10 mg PO BID [facility] Last Admin: 01/15/25 09:24 Dose: 10 mg Documented By: SARAY Sodium Chloride (0.9 % Sodium Chloride Flush 3 Ml Syringe) 3 ml IVFLUSH QSHIFT [facility] Last Admin: 01/15/25 09:24 Dose: 3 ml Documented By: SARAY Labs 01/11/25 14:06 01/12/25 06:55 Labs: Laboratory Results - last 24 hr 01/14/25 01/14/25 16:04 20:27 POC Glucose 114 170 H Microbiology Microbiology Results: Microbiology 01/11/25 15:54 Urine Culture - Final Urine Catheterized - Carrero Catheter Streptococcus viridans group Assessment and Plan (1) Cardiomyopathy: Status: Acute (2) Precordial chest pain: Status: Acute (3) Type II diabetes mellitus: Status: Acute (4) Hyponatremia: Status: Acute (5) End-stage renal disease (ESRD): Status: Acute (6) ESRD on hemodialysis: Status: Acute (7) Hyperkalemia: Status: Acute (8) Multiple sclerosis: Status: Acute (9) Central pontine myelinolysis: Status: Acute Plan 34 year old female with ESRD on HD TuThSa, DM2 with polyneuropathy/retinopathy + legal blindness, PAD s/p R TMA and recent Left BKA, chronic hypoxia on 3-4L O2, chronic HFrEF, multiple HD catheter line infections with MSSA/Stenotrophomonas/Pseudomonas, mood disorder, and chronic pain with opioid-seeking behavior; recently diagnosed MS who presents with Chest pain found to have hyperkalemia requiring urgent HD. Chest pain, mild increase in trop likely from renal failure Troponin level plateaued, similar to prior. Cardiology was consulted, recommendations greatly appreciated. 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 Holding off aggressive cardiac workup at this time hyperK due to missed HD K is normal HTN Continue baseline medication Chronic osteo s/p Left BKA 01/05 Thick dressings and Kerlix with Izaiah bandage change daily DM2 SSI, POCs chronic hypoxia 3-4L O2 via NC prn chronic HFrEF carvedilol HD to manage volume Anemia in CKD H/H at stable compared to previous Thrombocytopenia Chronic chronic pain syndrome oxycodone when med rec completed [employer] - VTE: Heparin 5000 t.i.d. SQ - CODE STATUS: Full code - DIET: Renal - DISPOSITION: Possible discharge tomorrow Total time managing care of this patient today: 35 minutes. Quality Stroke Does the patient have a stroke diagnosis?: No VTE Prior VTE?: No VTE Risk Level:: Medical - moderate - high VTE Device Contraindication: Treatment Not Indicated VTE Drug Contraindication: N/A - Med Ordered
--- NOTE | 2025-01-15 15:46 | P.PNNP_ITS ---
Subjective Subjective Date of Service: 01/16/25 Physical Exam 2 Exam: Exam: cvs: s1s2 Rs; cta Abd; soft Vital Signs: Vital Signs: Last Vital Signs Temp 97.0 F 01/15/25 15:14 Pulse 85 01/15/25 15:14 Resp 18 01/15/25 15:14 BP 168/79 H 01/15/25 15:14 Pulse Ox 99 01/15/25 15:14 O2 Del Method Room Air 01/15/25 15:14 BMI result Body Mass Index 30.2 Objective Data Labs 01/11/25 14:06 01/12/25 06:55 Labs: Laboratory Results - last 24 hr 01/14/25 01/14/25 16:04 20:27 POC Glucose 114 170 H Microbiology Microbiology Results: Microbiology 01/11/25 15:54 Urine Catheterized - Carrero Catheter Urine Culture - Final Streptococcus viridans group Procedures Date of Service Date of Service: 01/16/25 Assessment & Plan Assessment and plan (1) ESRD on hemodialysis: Status: Acute Plan ESRD: usu TTS - back on TTS schedule-- HyperK: recurrent prob; should be on Lokelma on non-HD days Nephrogenic Anemia: needs EPO ( 20k sq x1) MBD of CKD Will follow w team closely Time Spent With Patient Time: Total time managing care of this patient today ____ minutes. Progress Note: Quality Stroke Does the patient have a stroke diagnosis?: No
[2025-01-16] MEDS: oxyCODONE HCl Immed Release 5 MG TABLET 10 MG PO ×4 (03:20→14:20)
[2025-01-16 03:48] VITALS: BP 163/79; PULSE 85; RESP 18; TEMP 36; O2SAT 96
[2025-01-16] MEDS: 0.9 % Sodium Chloride Flush 3 ML SYRINGE IVFLUSH (06:08)
[2025-01-16] MEDS: oxyCODONE HCl ER 10 MG TAB.ER.12H PO (07:28)
[2025-01-16 08:00] VITALS: BP 167/84; PULSE 83; RESP 18; TEMP 36.2; O2SAT 99
[2025-01-16 09:40] LABS: Hematocrit 23.8 % (37.0-47.0); Hemoglobin 7.8 g/dl (12.0-16.0); Imm Gran Abs Auto 0.03 X10*3/uL (0.00-0.03); Imm Gran Pct Auto 0.6 % (0.0-0.4); Lymphocytes Absolute Auto 0.7 X10*3/uL (1.2-4.9); MANUAL DIFF FLAG NO; Mean Corpuscular HGB Conc 32.8 g/dl (31.0-35.0); Mean Corpuscular Hemoglobin 30.0 pg (27.0-33.0); Mean Corpuscular Volume 91.5 fL (80.0-98.0); NRBC Abs Auto 0.000 X10*3/uL (0.0-0.012); NRBC Pct Auto 0.0 /100WBC (0.0-0.2); Platelet Count 185 X10*3/uL (160-400); Red Blood Count 2.60 X10*6/uL (4.20-5.50); White Blood Count 4.7 X10*3/uL (4.8-10.8)
[2025-01-16 11:33] LABS: Glucose, Whole Blood 153 mg/dL (60-115)
[2025-01-16 11:37] VITALS: BP 115/55; PULSE 79; RESP 16; TEMP 36.1; O2SAT 98
--- NOTE | 2025-01-16 12:15 | PM.DS ---
DS: Providers Provider Date of Service: 01/16/25 Date of admission: 01/11/25 16:43 Date of discharge: 01/16/25 Primary care physician: Genevieve Casillas MD Consults: 01/11/25 16:52 Consult to Nephrology Routine Consulting Provider: [facility] Reason for consultation: esrd on HD; with hyperkalemia Has provider been notified: Yes 01/11/25 23:26 Consult to Wound Care Routine Consulting Provider: [facility] Wound Care Management Reason for consultation: chroinic wound 01/13/25 16:40 Consult to Cardiology Routine Consulting Provider: [facility] Cardiovascular Specialists Reason for consultation: persistent chest pain, troponin elevated (plateaud) 01/14/25 09:07 Consult to Psychiatry Routine Consulting Provider: [facility] Psych Covering Reason for consultation: assistance with establishing a behavioural health plan 01/15/25 09:34 Consult to General Surgery Routine Consulting Provider: [facility] General Surgeons Reason for consultation: jack post op/ remove? DS: Diagnosis Discharge Diagnosis (1) Status post below-knee amputation of left lower extremity: Status: Acute DS: Summary Hospital Course Hospital Course: Chief Complaint: chest pain This is a 34-year-old female with history of ESRD, diabetes, multiple other chronic comorbidities who presents to the emergency department with chest pain. Patient was discharged from [facility] on January 08 after a hospitalization due to nonhealing left foot wound with osteomyelitis which resulted in left BKA on January 05. She returns to the emergency department today with complaints of chest pain. In the emergency department her cardiac enzymes were slightly elevated but within her chronic baseline. EKG was unchanged. Lab work was significant for potassium of 6.5, bicarb of 18 and creatinine of 13.22. Patient states that she has not gone to dialysis since discharge from the hospital. In the emergency department she was treated with calcium gluconate, insulin, dextrose, Lokelma. The case was discussed with the on-call field operations farm manager who recommended admitting the patient for urgent dialysis. hospital course: This is a 34 year old female with ESRD on HD TuThSa, DM2 with polyneuropathy/retinopathy + legal blindness, PAD s/p R TMA and recent Left BKA, chronic hypoxia on 3-4L O2, chronic HFrEF, multiple HD catheter line infections with MSSA/Stenotrophomonas/Pseudomonas, mood disorder, and chronic pain with opioid-seeking behavior; recently diagnosed MS who presents with Chest pain found to have hyperkalemia requiring urgent HD. For chest pain, troponin I level unremarkable and no ischemic changes on ECG. Her potassium has been corrected and is within normal limit, she has been dialysed today and will resume usual dialysis schedule hyperK due to missed HD, corrected, K is now normal and also had dialysis today HTN Continue baseline medication Chronic osteo s/p Left BKA 01/05 Thick dressings and Kerlix with Izaiah bandage change daily to follow up with surgeon DM2 resume home medication chronic hypoxia normal O2 on room air chronic HFrEF fluid removal with dialsysis Anemia in CKD H/H at stable compared to previous Thrombocytopenia Chronic chronic pain syndrome oxycodone as prescribed at home by PCP Oxycontin 10meq BID PO started - Consider continuation vs discontinuation of regimen as appropriate Status at Discharge Functional status at discharge: wheelchair bound Overall status at discharge: patient is back to baseline Time Attestation Total time managing care of this patient today: 45 mintues. Discharge Coordination Time (in mins): 35 Quality: Safe Use of Opioids Does Pt have an Active Cancer Diagnosis on the Problem List?: No Quality: Stroke Does the patient have a stroke diagnosis?: No Physical Exam Exam: Exam: General:Cooperative, no acute distress, alert and oriented x3 HEENT:Normocephalic, atraumatic. Cervical tenderness. No meningeal signs. Eyes:Normal appearance, EOMI. Legally blind right eye. Neck: cervical tenderness. Cardiac:Regular rate and rhythm, normal S1/S2, no murmurs. Respiratory:Clear to auscultation, no distress. GI:Soft, nontender, nondistended. Neuro:Alert, oriented, moves all extremities, no focal deficits. Skin: No rashes. MSK: Left BKA with dressing in place right lower extremity with dressing in place. Vital Signs: Vital Signs: Last Vital Signs Temp 97.0 F 01/16/25 11:37 Pulse 79 01/16/25 11:37 Resp 16 01/16/25 11:37 BP 115/55 L 01/16/25 11:37 Pulse Ox 98 01/16/25 11:37 O2 Del Method Room Air 01/16/25 11:37 BMI result Body Mass Index 30.2 DS: Data Data Completed and Pending Completed studies during hospitalization [Text1]: Procedures Detachment at Left 2nd Toe, Complete, Open Approach (09/08/23) Detachment at Left 3rd Toe, Complete, Open Approach (09/08/23) Detachment at Left 4th Toe, Complete, Open Approach (09/08/23) Detachment at Right Foot, Partial 1st Ray, Open Approach (03/01/20) Detachment at Right Foot, Partial 2nd Ray, Open Approach (03/01/20) Detachment at Right Foot, Partial 3rd Ray, Open Approach (03/01/20) Detachment at Right Foot, Partial 4th Ray, Open Approach (03/01/20) Detachment at Right Foot, Partial 5th Ray, Open Approach (03/01/20) Drainage of Right Pleural Cavity, Percutaneous Approach (01/14/21) Drainage of Spinal Canal, Percutaneous Approach, Diagnostic (09/05/24) Excision of Left Foot Muscle, Open Approach (01/14/24) Excision of Left Foot Skin, External Approach (10/08/23) Excision of Left Foot Subcutaneous Tissue and Fascia, Open Approach (10/29/24) Excision of Right Foot Skin, External Approach (07/31/24) Excision of Stomach, Pylorus, Via Natural or Artificial Opening Endoscopic, Diagnostic (08/27/22) Fluoroscopy of Spinal Cord (09/05/24) Fluoroscopy of Superior Vena Cava, Guidance (08/14/22) Insertion of Endotracheal Airway into Trachea, Via Natural or Artificial Opening (11/10/23) Insertion of Infusion Device into Right Atrium, Percutaneous Approach (02/25/24) Insertion of Infusion Device into Superior Vena Cava, Percutaneous Approach (05/25/24) Insertion of Infusion Device into Upper Vein, Percutaneous Approach (01/14/24) Insertion of Tunneled Vascular Access Device into Chest Subcutaneous Tissue and Fascia, Percutaneous Approach (05/25/24) Introduction of Other Thrombolytic into Peripheral Vein, Percutaneous Approach (09/05/24) Introduction of Vasopressor into Peripheral Vein, Percutaneous Approach (11/10/23) Isolation (11/10/23) Performance of Urinary Filtration, Intermittent, Less than 6 Hours Per Day (12/10/24) Removal of Infusion Device from Great Vessel, External Approach (01/14/21) Removal of Infusion Device from Great Vessel, Percutaneous Approach (05/25/24) Removal of Infusion Device from Heart, External Approach (01/14/24) Removal of Tunneled Vascular Access Device from Trunk Subcutaneous Tissue and Fascia, Open Approach (05/25/24) Respiratory Ventilation, Greater than 96 Consecutive Hours (11/10/23) Transfusion of Nonautologous Red Blood Cells into Peripheral Vein, Percutaneous Approach (11/10/23) Ultrasonography of Superior Vena Cava, Guidance (02/25/24) Labs on day of discharge: Laboratory Results - last 24 hr 01/16/25 01/16/25 09:17 11:27 WBC 4.7 L RBC 2.60 L Hgb 7.8 L Hct 23.8 L MCV 91.5 MCH 30.0 MCHC 32.8 RDW 13.4 Plt Count 185 D MPV 10.8 Immature Gran % (Auto) 0.6 H Neut % (Auto) 67.0 Lymph % (Auto) 15.6 L [place] % (Auto) 10.7 Eos % (Auto) 5.5 H Baso % (Auto) 0.6 Lymph # (Auto) 0.7 L [place] # (Auto) 0.5 Eos # (Auto) 0.3 Baso # (Auto) 0.0 Abs Immat Gran (auto) 0.03 Absolute Neuts (auto) 3.1 Absolute Nucleated RBC 0.000 Nucleated RBC % (auto) 0.0 POC Glucose 153 H Blood Type A Positive Antibody Screen NEGATIVE Discharge Plan Discharge Anticipated Discharge Date/Time: 01/16/25 12:18 Patient Disposition: Home Health Service Discharge Diagnosis: Hyperkalemia, missed dialysis, chest pain Referrals: [facility] [Outside] - 1 Week Genevieve Gtz MD [Primary Care Provider, Internal Medicine] - 1 Week Discharge Medications: New oxycodone [OxyContin] 10 mg Tablet,Oral Only,Ext.Rel.12 Hr 10 mg PO BID 7 Days Qty: 14 0RF Rx Instructions: Partial Fill upon patient request. Continued carvedilol 12.5 mg Tablet 12.5 mg PO BID 90 Days Qty: 180 0RF Protocol: Hold for SBP/HR < HOLD for SBP < : 90 HOLD for HR < : 60 hydralazine 50 mg Tablet 50 mg PO TID 90 Days Qty: 270 0RF Protocol: Hold for SBP< HOLD for SBP < : 90 (DME) FreeStyle Lite Strips Strip Qty: 100 0RF Rx Instructions: Test four times a day or as directed. (DME) blood-glucose meter [FreeStyle Lite Meter] Kit Qty: 1 0RF Rx Instructions: As Directed (DME) pen needle, diabetic 32 gauge x 1/4 needle Qty: 100 0RF Rx Instructions: Use four times a day or as directed. (DME) lancets [FreeStyle Lancets] 28 gauge misc Qty: 100 0RF Rx Instructions: Test four times a day or as directed. hydromorphone [Dilaudid] 4 mg tablet 4 mg PO Q6H PRN (Reason: pain) Qty: 20 0RF Rx Instructions: Partial Fill upon patient request. metoclopramide HCl [Reglan] 10 mg tablet 10 mg PO Q6H PRN (Reason: nausea and vomiting) Qty: 14 0RF nitroglycerin 0.4 mg tablet, sublingual 0.4 mg sublingual DIRECTED PRN (Reason: Angina) albuterol sulfate [Ventolin HFA] 90 mcg/actuation HFA aerosol inhaler 2 puff inhalation Q6H PRN (Reason: wheezing) calcium carbonate [Tums] 200 mg calcium (500 mg) Tablet,Chewable 200 mg PO TIDWM PRN (Reason: Acid Reflux) oxycodone 10 mg tablet 10 mg PO Q8H PRN (Reason: pain) 5 Days Qty: 10 0RF Rx Instructions: Partial Fill upon patient request. acetaminophen 325 mg tablet 975 mg PO Q4H PRN (Reason: mild pain) 30 Days Qty: 90 0RF Discharge Orders: Discharge Order (Routine); Ordered 01/16/25 Ordered By: Ellen Frankel Diet: Diabetic diet Activity on Discharge: As tolerated Stand Alone Forms: Patient Portal Discharge page Print Language: Italian Care Plan Goals: as above Health Concerns: missing dialysis frequently, recent BKA, chest pain resolved Plan of Treatment: resume dialysis schedule as before, follow up with PCP and Dr. Arias for wound check Assessment: haemodynamically stable for discharge
--- NOTE | 2025-01-16 12:28 | MHC.CM.PN ---
Patient medically cleared for dc home w/ resumption of [facility] services. BLS transport scheduled for 4pm. RN and patient aware.
--- NOTE | 2025-01-16 12:37 | W.MHC.F2F ---
Service Date Service Date: 01/16/25 Encounter Date of encounter: 01/16/25 Reasons for Services Signs and symptoms assessed: bilateral LE amputation, wheelchair bound, blindness Reason for retirement: wound care, postoperative assessment and/or care, medication management and teach disease management Reason for physical therapy: home safety and mobility, therapeutic exercises, restore joint function, gait/transfer training, assess need for DME and energy conservation Reason for occupational therapy: home safety and mobility, therapeutic exercises, restore joint function, gait/transfer training, assess need for DME, ADL training and energy conservation Homebound: Leaving the home is medically contraindicated at this time without the asist of a device and/or another person due th the listed conditions above and below. Reason homebound: unsteady gait / fall risk, bedbound/chairbound, pain with ambulation, pain with transfers, weakness related to hospital stay and legally blind Certification: Based on the above findings, I certify that this patient is confined to the home and needs intermittent retirement care, physical therapy and/or speech therapy, or continues to need occupational therapy. The patient is under my care, and I have initiated the establishment of the plan of care. The patient will be followed by a physician who will periodically review the plan of care. Time Spent With Patient Time: Total time managing care of this patient today 30 minutes.
[2025-01-16 15:16] VITALS: BP 136/72; PULSE 83; RESP 18; TEMP 36.6; O2SAT 97
== END 2025-01-16 16:20 | disposition home health service (06) | DRG 640 ==
LOC: HO.ED 16:47 → HO.EDOVER 16:57 → HO.IMC 16:58 → HO.S3 01-13 11:59
PROVIDERS: Internal Medicine; Physician Assistant Medical; Admitting Provider Physician Assistant Medical; Emergency Provider Emergency Medicine; PCP Student in an Organized Health Care Education/Training Program; Visit Provider Hospitalist
DX: E87.5 Hyperkalemia (principal); N18.6 End stage renal disease; I13.2 Hypertensive heart and chronic kidney disease with heart failure and with stage 5 chronic kidney disease, or end stage renal disease; I42.9 Cardiomyopathy, unspecified; I50.22 Chronic systolic (congestive) heart failure; E11.319 Type 2 diabetes mellitus with unspecified diabetic retinopathy without macular edema; E11.22 Type 2 diabetes mellitus with diabetic chronic kidney disease; R09.02 Hypoxemia; D63.1 Anemia in chronic kidney disease; N25.0 Renal osteodystrophy; E11.51 Type 2 diabetes mellitus with diabetic peripheral angiopathy without gangrene; G89.4 Chronic pain syndrome; G35.A Relapsing-remitting multiple sclerosis; Z20.822 Contact with and (suspected) exposure to COVID-19; Z99.2 Dependence on renal dialysis; Z89.512 Acquired absence of left leg below knee; Z91.158 Patient's noncompliance with renal dialysis for other reason; Z79.4 Long term (current) use of insulin; Z79.899 Other long term (current) drug therapy
CPT/HCPCS: 36415; 71045; 80048; 80076; 81001; 82550; 82803; 82947; 83735; 84484; 85025; 85610; 86850; 86900; 86901; 87086; 87637; 90999; 93005; 93308; 99285; J0131; J0613; J1171; J1200; J2405; Q5106; Q9957

== ENCOUNTER → 2025-01-11 12:24 | Outpatient (BNV) | payer OTHER, SELFPAY | PROVIDERS: Admitting Provider Physician Assistant Medical; Emergency Provider Emergency Medicine; PCP Student in an Organized Health Care Education/Training Program; Visit Provider Internal Medicine | DX: I45.10 Unspecified right bundle-branch block (principal) | CPT/HCPCS: 93010 ==

== ENCOUNTER → 2025-01-11 13:33 | Outpatient (BNV) | payer OTHER, SELFPAY | PROVIDERS: PCP Student in an Organized Health Care Education/Training Program; Visit Provider Radiology Diagnostic Radiology | DX: R06.02 Shortness of breath (principal) | CPT/HCPCS: 71045 ==

== ENCOUNTER 2025-01-11 16:43 | Outpatient (BNV) | payer OTHER, SELFPAY | END 2025-01-14 12:00 | PROVIDERS: Admitting Provider Physician Assistant Medical; Emergency Provider Emergency Medicine; PCP Student in an Organized Health Care Education/Training Program; Visit Provider Internal Medicine | DX: I31.39 Other pericardial effusion (noninflammatory) (principal); I51.89 Other ill-defined heart diseases; R07.9 Chest pain, unspecified | CPT/HCPCS: 93308 ==

== ENCOUNTER → 2025-01-11 16:43 | Outpatient (BNV) | payer OTHER, SELFPAY | PROVIDERS: Admitting Provider Physician Assistant Medical; Emergency Provider Emergency Medicine; PCP Student in an Organized Health Care Education/Training Program | DX: Z89.512 Acquired absence of left leg below knee (principal) | CPT/HCPCS: 99223 ==

== ENCOUNTER → 2025-01-11 16:43 | Outpatient (BNV) | payer OTHER, SELFPAY | PROVIDERS: Admitting Provider Physician Assistant Medical; Emergency Provider Emergency Medicine; PCP Student in an Organized Health Care Education/Training Program; Visit Provider Physician Assistant Medical | DX: I42.9 Cardiomyopathy, unspecified (principal); R07.2 Precordial pain; E11.9 Type 2 diabetes mellitus without complications; E87.1 Hypo-osmolality and hyponatremia; N18.6 End stage renal disease; Z99.2 Dependence on renal dialysis; E87.5 Hyperkalemia; G35.D Multiple sclerosis, unspecified; G37.2 Central pontine myelinolysis | CPT/HCPCS: 99223; 99232 ==

== ENCOUNTER → 2025-01-11 16:43 | Outpatient (BNV) | payer OTHER, SELFPAY | PROVIDERS: Admitting Provider Physician Assistant Medical; Emergency Provider Emergency Medicine; PCP Student in an Organized Health Care Education/Training Program; Visit Provider Internal Medicine | DX: R07.2 Precordial pain (principal); I42.9 Cardiomyopathy, unspecified; N18.6 End stage renal disease; Z99.2 Dependence on renal dialysis | CPT/HCPCS: 99223; 99233 ==

== ENCOUNTER 2025-01-21 16:33 | Inpatient (IN) | payer OTHER, SELFPAY ==
[2025-01-21] VITALS (7 sets, daily range): BP systolic 149–173; BP diastolic 60–84; PULSE 94–138; RESP 11–22; TEMP 37.3–39.1; O2SAT 93–98; BMI 34.4
--- NOTE | 2025-01-21 | ECG_ITS ---
Test Reason : TACHY Blood Pressure : */* mmHG Vent. Rate : 135 BPM Atrial Rate : 135 BPM P-R Int : 116 ms QRS Dur : 140 ms QT Int : 352 ms P-R-T Axes : 82 -18 75 degrees QTcB Int : 528 ms Sinus tachycardia Right bundle branch block Abnormal ECG When compared with ECG of 11-Jan-2025 12:27, T wave inversion more evident in Anterior leads Referred By: Generic ED Physician Electronically Signed By: Vinny Vera
--- NOTE | ~2025-01-21 | XR_ITS ---
CLINICAL HISTORY: Constipation 1 view abdomen Comparison: None Findings: Normal bowel gas pattern. A large bore vena cava catheter tip is located in the right atrium No abnormal calcifications. No obvious pneumoperitoneum or pneumatosis. No acute fractures Impression: Retained stool and radiopaque contrast is present throughout the colon and rectum. The bowel pattern is nonobstructed. This document has been electronically signed by: Fernando Fowler MD on 01/31/2025 14:21:26
--- NOTE | ~2025-01-21 | XR_ITS ---
CLINICAL HISTORY: ?aspiration 1 view chest x-ray Comparison: CT/REG - CT ANGIO CHEST PE PROTOCOL - 01/25/25 09:05 EST Findings: Tunneled right internal jugular central venous catheter has tip projected near the expected location of the tricuspid valve. Cardiac silhouette is moderately enlarged. Mild central edema. No dense area of consolidation. Potential tiny bilateral pleural effusions. No pneumothorax. IMPRESSION: Findings most characteristic of volume overload. No focal areas of consolidation. This document has been electronically signed by: Rolo Centeno MD on 01/26/2025 03:55:29
--- NOTE | ~2025-01-21 | CT_ITS ---
CLINICAL HISTORY: PE CT angiography chest with contrast. 3D Postprocessing. Comparison: CT/SR - CT ANGIO CHEST AORTA - 07/08/2024 05:32 PM EDT Findings: Small pericardial effusion. Normal heart size. Normal RV/LV ratio. The thoracic aorta is normal caliber. Pulmonary emboli in the right lower lobe segmental and subsegmental branches. The visualized thyroid and mediastinum are unremarkable. No consolidation or effusion. The upper abdomen is unremarkable. The bones are intact. No acute findings in the visualized. IMPRESSION: 1. Pulmonary emboli in the right lower lobe segmental and subsegmental branches. 2. Small pericardial effusion. This document has been electronically signed by: Marquita Pimentel MD on 01/21/2025 20:16:24
--- NOTE | ~2025-01-21 | CT_ITS ---
CLINICAL HISTORY: abcess CT left femur with contrast. Comparison: CT/SR - CT FEMUR LT W IV CON - 01/21/25 18:35 EST Findings: Minimal left hip osteoarthritis. The femur is intact. No significant knee osteoarthritis. Extensive ill-defined fat stranding within the soft tissues along the lateral and distal aspects of the [id number] amputation. A lobulated hypodensity at the posteromedial aspect of the tibial stump measures up to 1.4 x 1.1 x 3.4 cm. No definite osteomyelitis. Extensive calcific atherosclerosis. IMPRESSION: Prominent soft tissue inflammatory changes involving the amputation stump, which can be seen with cellulitis. Possible phlegmon versus early abscess at the posteromedial aspect of the tibial stump. No definite osteomyelitis. This document has been electronically signed by: Rosendo Falk DO on 01/25/2025 12:49:32
--- NOTE | ~2025-01-21 | CT_ITS ---
CLINICAL HISTORY: Pulmonary embolism worsening CT angiography chest with contrast. 3D Postprocessing. Comparison: CT/REG - CT ANGIO CHEST PE PROTOCOL - 01/21/25 18:35 EST Findings: The heart is enlarged. Small pericardial effusion. A right central line terminates in the right atrium. The main pulmonary artery measures 3.1 cm in diameter and 276 Hounsfield units. Irregular filling defects are reidentified within right lower lobar and segmental/subsegmental pulmonary arteries. Overall clot burden is similar to 01/21/2025. No other pulmonary arterial filling defects are identified. No intrathoracic lymphadenopathy. Right lower lobe ground-glass density measuring 1.6 x 0.7 cm on axial series 40, image 76, which is new compared to the prior CT. Basilar left lower lobe subsegmental atelectasis. No focal consolidation, pleural effusion, or pneumothorax. Cholecystectomy. Heavy burden abdominal calcific atherosclerosis. Lobulated spleen without discrete mass. No acute fractures. IMPRESSION: No significant change in the right lower lobe pulmonary emboli. This document has been electronically signed by: Rosendo Falk DO on 01/25/2025 12:17:09
--- NOTE | ~2025-01-21 | CT_ITS ---
CLINICAL HISTORY: infection CT left femur with intravenous contrast Comparison: CT/REG/SR - CT ABDOMEN PELVIS WO IV CON - 12/21/24 13:58 EDT Findings: Images were obtained from the hip through the [id number] amputation stump. No acute fracture or dislocation. Amputation stump margins are smooth. Severe peripheral vascular calcifications. Ill-defined partially rim enhancing complex fluid collection along the medial side of the amputation stump measuring 4.2 x 1.5 x 2.4 cm. Heterogeneous enhancement of the muscle lateral to the amputation stump (axial image 199/216) may be postsurgical versus myositis. No soft tissue gas. IMPRESSION: 1. Ill-defined partially rim enhancing complex fluid collection along the medial side of the amputation stump, measuring 4.2 x 1.5 x 2.4 cm, concerning for abscess. 2. Heterogeneous enhancement of the muscle lateral to the amputation stump, possibly representing postsurgical changes or myositis. 3. No soft tissue gas. This document has been electronically signed by: Marquita Pimentel MD on 01/21/2025 20:03:31
--- NOTE | ~2025-01-21 | XR_ITS ---
CLINICAL HISTORY: Port site pain ?abscess 1 view chest x-ray. Comparison: 01/21/2025 Findings: No consolidation or effusion. Cardiac and mediastinal contours appear stable. Centralized stable position, distal tip overlying right atrium. Bones unremarkable. Impression: 1. No acute pulmonary disease. This document has been electronically signed by: Anderson Beckford MD on 01/24/2025 15:39:08
--- NOTE | ~2025-01-21 | CT_ITS ---
CLINICAL HISTORY: abd pain CT abdomen and pelvis with contrast Comparison: CT/REG - CT ABDOMEN PELVIS W IV CON - 01/21/25 18:35 EST Findings: See same day chest CT for discussion of intrathoracic findings. Extensive calcific atherosclerosis. Cholecystectomy. Small left renal cyst. Lobulated spleen without discrete mass. Other abdominal solid organs are unremarkable. No bowel obstruction. Mild mural thickening of the distal descending and proximal sigmoid colon. Normal appendix. Pelvic structures unremarkable. Chronic left perirectal inflammation/scarring without discrete abscess. Mild discogenic degenerative disease at L4-L5. IMPRESSION: 1. Mild mural thickening of the distal descending and proximal sigmoid colon which may be related to nondistention/peristalsis, although correlate for evidence of mild colitis. 2. Chronic and incidental findings as above. This document has been electronically signed by: Rosendo Falk DO on 01/25/2025 12:31:19
--- NOTE | ~2025-01-21 | CT_ITS ---
CLINICAL HISTORY: Abscess worsening CT right leg with contrast Comparison: None provided Findings: No significant knee osteoarthritis or knee joint effusion. The tibia and fibula are intact without evidence of osteomyelitis. Question mild soft tissue swelling along the lateral aspect of the distal fibula. No evidence of leg abscess. Extensive calcific atherosclerosis. IMPRESSION: Question mild soft tissue swelling along the lateral aspect of the distal fibula. No evidence of abscess or osteomyelitis. This document has been electronically signed by: Rosendo Falk DO on 01/25/2025 12:58:05
--- NOTE | ~2025-01-21 | XR_ITS ---
CLINICAL HISTORY: Left sided abd pain 1 view abdomen Comparison: 07/19/2024 Findings: Normal bowel gas pattern. Moderate stool quantity. No abnormal calcifications. No pneumoperitoneum or pneumatosis. Bones unremarkable. Impression: 1. Moderate colonic stool burden. Otherwise, unremarkable artery bowel gas pattern. This document has been electronically signed by: Anderson Beckford MD on 01/24/2025 15:39:40
--- NOTE | ~2025-01-21 | MR_ITS ---
CLINICAL HISTORY: Seizures? Acute AMS , unclear MR Brain with and without gadolinium Comparison: CT head earlier on 01/25/2025, Brain MRI 10/29/2024 Findings: No restricted diffusion. No intra-axial mass or hemorrhage. No midline shift. No hydrocephalus. Vascular flow voids are intact. The orbits are normal. The sinuses and mastoid air cells are clear. No focal bone lesion. Similar appearance of previous left retinal detachment. Phthisis bulbi of the right globe. Similar appearance of scattered T2/FLAIR signal hyperintensities throughout subcortical, deep and periventricular white matter. IMPRESSION: 1. No acute intracranial abnormality identified. 2. Stable extent and distribution of scattered T2/FLAIR signal hyperintensities throughout subcortical, deep and periventricular white matter without associated restricted diffusion or postcontrast enhancement. These are nonspecific with differential diagnostic considerations including demyelinating disease, early white matter microvascular ischemic changes, sequela of prior migraine headaches or infectious/inflammatory process. Correlation with patient's symptoms and clinical history is recommended. 3. Stable additional chronic/nonacute findings as above. This document has been electronically signed by: Ellen Schwarz MD on 01/25/2025 18:17:45
--- NOTE | ~2025-01-21 | CT_ITS ---
CLINICAL HISTORY: AMS CT head without contrast Comparison: CT/REG/MO/SR - CT HEAD WITHOUT IV CONTRAST - 12/22/24 10:37 EDT Findings: No acute intracranial hemorrhage or midline shift. The fuller-white matter differentiation is maintained. Bilateral carotid siphon and vertebrobasilar calcifications. Unchanged hypodensity within the superior right cerebellar hemisphere, likely old ischemic infarct. Unchanged subcentimeter hypodensity within the left thalamus, either a prominent perivascular space or old lacunar infarct. The paranasal sinuses and mastoid air cells are clear other than minimal mucosal thickening along the floor of the right maxillary sinus. Small amount of cerumen/debris within the external auditory canals. Right phthisis bulbi and irregular soft tissue density along the left retina are reidentified. Again recommend correlation with ophthalmological evaluation. The calvarium is intact. 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 IMPRESSION: No acute intracranial findings. This document has been electronically signed by: Rosendo Falk DO on 01/25/2025 12:07:10
--- NOTE | ~2025-01-21 | XR_ITS ---
CLINICAL HISTORY: sob 1 view chest x-ray Comparison: CR - XR CHEST 1V - 01/11/25 13:54 EST Findings: Infrahilar linear opacities favoring atelectasis. No large effusion or pneumothorax. Right IJ central venous catheter tip is in the right atrium. Cardiomediastinal silhouette is stable. No acute fracture. IMPRESSION: 1. Infrahilar linear opacities favoring atelectasis. No other acute findings. 2. Right IJ central venous catheter tip in the right atrium. This document has been electronically signed by: Marquita Pimentel MD on 01/21/2025 18:10:56
--- NOTE | ~2025-01-21 | CT_ITS ---
CLINICAL HISTORY: sepsis CT abdomen and pelvis with contrast Comparison: CT/REG/SR - CT ABDOMEN PELVIS WO IV CON - 12/21/24 13:58 EDT Findings: No consolidation or effusion. Trace pericardial effusion. No consolidation. Cholecystectomy. No biliary duct dilatation. Atrophic pancreas. Liver, Spleen and adrenal glands are within normal limits. No hydronephrosis. Left renal cyst. Moderate stool burden. Normal appendix. No bowel obstruction, pneumatosis or pneumoperitoneum. Atherosclerosis of the aorta and its branches. No aneurysm. Vascular calcifications in the uterus. Mild diffuse urinary bladder wall thickening. The bones are intact. IMPRESSION: Mild diffuse urinary bladder wall thickening, correlate for cystitis. No other acute findings. This document has been electronically signed by: Marquita Pimentel MD on 01/21/2025 19:58:52
--- NOTE | 2025-01-21 17:03 | ED.GENADULT ---
HPI - General Adult General Chief complaint: General Medical Stated complaint: BODY PAIN HAD DIALYSIS TODAY Time Seen by Provider: 01/21/25 17:03 Source: patient Mode of arrival: ambulatory Limitations: no limitations History of Present Illness ED Provider: Dr. Sánchez HPI narrative: 34-year-old female history of ESRD, diabetes, osteomyelitis, hyponatremia. The patient was admitted for osteomyelitis of the left foot. Patient has underwent BKA with Dr. Rajput back on 01/05/2025. Patient's presented to the ER today for worsening pain. She is also endorsing pain at the incision site and itchiness. She endorses some shortness of breath as well. Patient is noted to be hypoxic on 3 L nasal cannula. She is tachycardic in the 140s. Fever 101.8. History is limited due to patient's presentation. Related Data Home Medications ?Medication ?Instructions ?Recorded ?Confirmed albuterol sulfate 90 mcg/actuation 2 puff inhalation Q6H PRN wheezing 01/15/24 01/11/25 aerosol inhaler (Ventolin HFA) nitroglycerin 0.4 mg sublingual 0.4 mg sublingual DIRECTED PRN 01/15/24 01/11/25 tablet Angina calcium carbonate (Tums) 200 mg PO TIDWM PRN Acid Reflux 07/03/24 01/11/25 Previous Rx's ?Medication ?Instructions ?Recorded carvedilol 12.5 mg tablet 12.5 mg PO BID 90 days #180 tabs 12/16/23 hydralazine 50 mg tablet 50 mg PO TID 90 days #270 tabs 12/16/23 blood sugar diagnostic (FreeStyle #100 ea 08/26/24 Lite Strips) blood-glucose meter (FreeStyle #1 ea 08/26/24 Lite Meter kit) lancets 28 gauge (FreeStyle #100 ea 08/26/24 Lancets) pen needle, diabetic 32 gauge x #100 ea 08/26/24 1/ hydromorphone 4 mg tablet 4 mg PO Q6H PRN pain #20 tabs 12/19/24 (Dilaudid) metoclopramide HCl 10 mg tablet 10 mg PO Q6H PRN nausea and 12/19/24 (Reglan) vomiting #14 tabs acetaminophen 325 mg tablet 975 mg (3 x 325 mg) PO Q4H PRN 01/08/25 mild pain 30 days #90 tabs oxycodone 10 mg tablet 10 mg PO Q8H PRN pain 5 days #10 01/08/25 tabs oxycodone 10 mg tablet,crush 10 mg PO BID 7 days #14 tabs 01/16/25 resistant,extended release 12 hr (OxyContin) Allergies Allergy/AdvReac Type Severity Reaction Status Date / Time gabapentin Allergy Severe Facial Verified 01/21/25 16:52 Swelling tramadol Allergy Severe Facial Verified 01/21/25 16:52 Swelling azithromycin (From Zithromax) Allergy Intermediate Hives Verified 01/21/25 16:52 morphine (MORPHINE) Allergy Intermediate Itching Verified 01/21/25 16:52 vancomycin AdvReac Intermediate Itching Verified 01/21/25 16:52 Review of Systems Review of Systems: Review of systems limited due to patient's presentation. [facility] Past Medical History [facility] Narrative: Medical history as mentioned in HPI Medical History (Updated 01/22/25 @ 00:05 by Dee Dee Sánchez DO) Central pontine myelinolysis ESRD on hemodialysis End-stage renal disease (ESRD) Cardiomyopathy Cerebral microvascular disease Steroid-induced hyperglycemia Relapsing remitting multiple sclerosis Renal failure Multiple sclerosis Cerebral infarction Hyperkalemia ESRD on dialysis Hypoxia End stage renal disease on dialysis Chronic ulcer of right foot due to diabetes mellitus Chronic ulcer of left foot due to diabetes mellitus DM foot ulcer Hypotonic neurogenic bladder Diabetic polyneuropathy Hypertensive emergency Decompensated heart failure Renal failure Hypertension, uncontrolled Medical non-compliance Pericarditis Unspecified hypertension, condition or complication Metabolic acidosis Gastroparesis End stage chronic kidney disease Chronic kidney disease Anemia Plantar ulcer of left foot MDD (major depressive disorder) CKD (chronic kidney disease) Hypertension Vomiting Chronic pain Non-compliance with renal dialysis Diabetic foot ulcer associated with type 2 diabetes mellitus HFrEF (heart failure with reduced ejection fraction) delivery delivered Anemia in chronic kidney disease (CKD) CKD (chronic kidney disease) Abnormal finding on echocardiogram Elevated troponin Acute worsening of stage 3 chronic kidney disease Generalized edema Sepsis Cellulitis Pleural effusion Atypical chest pain Bone infection PAD (peripheral artery disease) Cellulitis and abscess of foot Osteomyelitis Asthma Depression with anxiety Diabetic retinopathy Blind right eye Diabetes Back pain Surgical History (Updated 01/16/25 @ 00:01 by Kane Mueller) Below-knee amputation of left lower extremity (~01/05/25) Tubal ligation status Previous section Hx laparoscopic cholecystectomy Hx of surgical procedure (~09/11/23) 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 Family History Family History Mother Coronary artery disease Myocardial infarction Stroke Diabetes mellitus Father Myocardial infarction Social History Social History Household Members: Family Household Members Other:: sister, brother, [id number] Housing: Apartment Housing Other:: Apartment, 1st floor Are you a primary career technical education instructor to a significant other at home: No Do you presently have visiting nurse or other home services: Yes Alcohol intake: never Comment: patient refusing bed alarm Patient Tobacco Use Status: Never used Tobacco Smoked in Last 30 Days: No e-Cigarette/Vaping Use: Never Used Second Hand Smoke Exposure: No Use of substances other than those prescribed or required for medical reasons: No Advance Directives: Yes Advance Directives on File: Yes Advance Directives Date on File: 08/28/23 Do you have a plan to hurt others: No Plan Patient : No service: No Current occupational status: unemployed and disabled Gender identity: Female Physical Exam ED Exam Exam: General: Appears ill Head: Normacephalic, atraumatic ENT: oral mucosa moist, neck supple, no tracheal deviation Cardiovascular: Tachycardia rate, regular rhythm, no murmurs, rubbing, gallops Respiratory: She does appear to be tachypneic. Likely secondary to fever. Gastrointestinal: Soft, non distended, non tender, non guarding Extremities: Patient does have a chronic wound of the right foot. Patient has BKA does look erythematous at the stump. Sutures in place. Tender to touch. Neurological: Awake and alert, no facial droop noted Skin: Warm and dry Psychiatric: Appropriate mood and thoughts Vital Signs: Vital Signs - 24 hr 01/21/25 16:47 01/21/25 17:01 01/21/25 17:24 Temperature 101.8 F H 101.9 F H Pulse Rate 138 H 135 H 116 H Respiratory Rate 20 22 H 15 Blood Pressure 149/63 H 159/60 H 156/65 H Pulse Oximetry 93 94 97 Oxygen Delivery Method Nasal Cannula Oxymask Oxymask Oxygen Flow Rate 5 3 01/21/25 18:04 01/21/25 18:48 01/21/25 19:10 Temperature 102.3 F H 99.3 F Pulse Rate 102 H 98 98 Respiratory Rate 11 L 13 22 H Blood Pressure 161/71 H 171/82 H 173/74 H Pulse Oximetry 98 95 95 Oxygen Delivery Method Oxymask Oxymask Oxymask Oxygen Flow Rate 2 2 2 01/21/25 20:09 Temperature 99.2 F Pulse Rate 94 Respiratory Rate 14 Blood Pressure 166/84 H Pulse Oximetry 97 Oxygen Delivery Method Nasal Cannula Oxygen Flow Rate 2 BMI result Body Mass Index 34.4 Medications Administered Generic Name Dose Route Start Last Admin Trade Name Freq PRN Reason Stop Dose Admin Heparin Sodium/Sodium Chloride 25,000 unit in 250 mls @ 0 mls/hr 01/21/25 22:00 01/21/25 22:04 Heparin Sodium,Porcine/1/2ns IVCONT 14 units/kg/hr .Q0M VASILE 11.93 mls/hr Protocol Administration Per Protocol Discontinued Medications Generic Name Dose Route Start Last Admin Trade Name Freq PRN Reason Stop Dose Admin Acetaminophen 650 mg 01/21/25 17:03 01/21/25 17:30 Acetaminophen Supp 650 Mg Supp.Rect CA 01/21/25 17:04 Not Given ONCE ONE Hydromorphone HCl 0.5 mg 01/21/25 21:47 01/21/25 21:51 Hydromorphone Hcl 0.5 Mg/0.5 Ml Syringe IVPUSH 01/21/25 21:48 0.5 mg ONCE ONE Administration Protocol Vancomycin HCl 2,000 mg in 500 mls @ 250 mls/hr 01/21/25 17:03 01/21/25 19:45 Vancomycin/Ns IV 01/21/25 19:02 Infused ONCE ONE Infusion Piperacillin Sod/Tazobactam 100 mls @ 200 mls/hr 01/21/25 17:03 01/21/25 17:54 Sod 4.5 gm/ Sodium Chloride IV 01/21/25 17:32 Infused ONCE ONE Infusion Lactated Ringer's 1,000 mls @ 999 mls/hr 01/21/25 17:15 01/21/25 19:04 Lr IV 01/21/25 19:15 Not Given .Q1H1M VASILE Acetaminophen 1,000 mg in 100 mls @ 400 mls/hr 01/21/25 17:14 01/21/25 17:54 Ofirmev IV 01/21/25 17:28 Infused ONCE ONE Infusion Lactated Ringer's 500 mls @ 999 mls/hr 01/21/25 19:00 01/21/25 18:53 Lr IV 01/21/25 19:30 Infused .Q31M VASILE Infusion Sodium Chloride 250 mls @ 999 mls/hr 01/21/25 22:11 01/21/25 23:20 Ns IV 01/21/25 22:26 999 mls/hr .Q16M STA Administration Iohexol 100 ml 01/21/25 18:46 01/21/25 18:47 Iohexol 350 Mg/Ml 100 Ml Infus..Btl IV 01/21/25 18:47 85 ml ONCE ONE Administration Procedures Ultrasound ED POC Ultrasound: Ultrasound-guided IV 20 gauge 1-3/4 inch IV placed in right upper extremity, adequate blood return, flushes well secured with Tegaderm, performed by Indu Carrero PA-C Medical Decision Making Medical Decision Making MDM Narrative: This is a chronically ill 34-year-old female history of ESRD, osteomyelitis, diabetes, cardiomyopathy recurrent osteomyelitis for recent left BKA 16 days ago presented hospital today for evaluation of possible infection. Given patient's presentation sepsis alert was called. CBC CMP blood culture, lactic acid will be obtained. IV fluid will be given to the patient. IV Tylenol will be given for her fever as well. However we will not give the full 30 cc/kg IV fluid as the patient has history of end-stage renal disease and is dependent on dialysis. Patient is currently on OxyMask for respiratory support. IV vancomycin and IV Zosyn ordered empirically for the patient. We will obtain a CT imaging of the patient's left BKA. X-ray will be obtained as well. Given patient's recent surgery we will obtain a CTA of the chest. CT abdomen will be obtained as well given to her degree of her sepsis. Lactic acid of a 6.5. Sepsis identified Patient's CTA of the chest does shows right-sided PE. Patient will be initiated on heparin drip. Patient's right BKA imaging shows a abscess approximately 4 cm in size. No soft tissue gas. CT abdomen and pelvis shows swelling of the bladder wall. No other acute abnormality. At this time I did discuss the case with the general surgeon on-call Dr. Collado. Recommends admission at this time. He will plan to see the patient in the morning. IV antibiotic has a right big initiated for the patient. Patient's heart rate has improved. Patient's blood pressure was maintaining at this time. Fever has improved. Patient will be admitted to the hospital. Differential Diagnosis Differential Diagnoses: The differential diagnosis associated with the presentation includes Sepsis, cellulitis, skin infection, osteomyelitis, PE Consult Healthcare Provider Management of the patient was discussed with: Hospitalist and Medical Van Driver (General surgeon (Dr. Collado)) Lab Data MDM Lab Attestation statement: I reviewed the patient's lab results. 01/21/25 23:41 01/21/25 17:06 Labs: Lab Results 01/21/25 01/21/25 01/21/25 Range/Units 17:06 17:10 17:13 WBC 6.3 (4.8-10.8) X10*3/uL RBC 2.61 L (4.20-5.50) X10*6/uL Hgb 7.9 L (12.0-16.0) g/dl Hct 23.2 L (37.0-47.0) % MCV 88.9 (80.0-98.0) fL MCH 30.3 (27.0-33.0) pg MCHC 34.1 (31.0-35.0) g/dl RDW 14.5 (11.0-16.0) % Plt Count 208 (160-400) X10*3/uL MPV 10.7 (9.4-12.3) fL Immature Gran % (Auto) 0.8 H (0.0-0.4) % Neut % (Auto) 93.5 H (45-73) % Lymph % (Auto) 3.2 L (20-40) % [place] % (Auto) 1.1 L (2-11) % Eos % (Auto) 1.1 (0-4) % Baso % (Auto) 0.3 (0-2) % Lymph # (Auto) 0.2 L (1.2-4.9) X10*3/uL [place] # (Auto) 0.1 (0.1-1.2) X10*3/uL Eos # (Auto) 0.1 (0.0-0.4) X10*3/uL Baso # (Auto) 0.0 (0.0-0.2) X10*3/uL Abs Immat Gran (auto) 0.05 H (0.00-0.03) X10*3/uL Absolute Neuts (auto) 5.9 (2.0-8.3) x10*3/uL Absolute Nucleated RBC 0.000 (0.0-0.012) X10*3/uL Nucleated RBC % (auto) 0.0 (0.0-0.2) /100WBC Smear Tech's Comments VERIFIED Hold Purple Top SEE NOTE PT 14.8 H (11.2-13.5) SEC INR 1.2 H (0.9-1.1) APTT 26.4 L D (26.7-34.1) SEC Hold Blue Top SEE NOTE VBG pH 7.57 H (7.32-7.43) VBG pCO2 28 mmHg VBG pO2 90 mmHg VBG HCO3 26 (22-26) mmol/L VBG O2 Saturation 98.0 % VBG Base Excess 5.1 mmol/L Sodium 142 (135-145) mmol/L Potassium 4.1 (3.3-5.1) mmol/L Chloride 100 (96-108) mmol/L Carbon Dioxide 24 (22-29) mmol/L Anion Gap 22 H (12-20) BUN 37 H (9-16) mg/dL Creatinine 6.39 H* (0.5-1.4) mg/dL Estim Creat Clear Calc 12.2 Estimated GFR 7 Random Glucose 74 (60-115) mg/dL Lactic Acid 6.5 H* (0.5-2.0) mmol/L Lactic Acid F/U @ 2Hr (0.5-2.0) mmol/L Calcium 8.9 (8.4-10.2) mg/dL Magnesium 2.0 (1.6-2.6) mg/dL Total Bilirubin 1.1 H (0.0-1.0) mg/dL AST 44 H (5-31) U/L ALT 21 (0-31) U/L Alkaline Phosphatase 235 H (39-117) U/L Troponin I High Sens 33.9 H D (<3.5-17.0) ng/L NT-Pro-B Natriuret Pep 822309.7 H (<300) pg/mL Total Protein 7.7 (6.5-8.0) g/dL Albumin 4.1 (3.5-5.0) g/dL Influenza Type A (PCR) NEGATIVE (Negative) Influenza Type B (PCR) NEGATIVE (Negative) RSV RNA Qual (PCR) NEGATIVE (Negative) SARS-CoV-2 RNA (RT-PCR) NEGATIVE (Negative) 01/21/25 Range/Units 19:26 WBC (4.8-10.8) X10*3/uL RBC (4.20-5.50) X10*6/uL Hgb (12.0-16.0) g/dl Hct (37.0-47.0) % MCV (80.0-98.0) fL MCH (27.0-33.0) pg MCHC (31.0-35.0) g/dl RDW (11.0-16.0) % Plt Count (160-400) X10*3/uL MPV (9.4-12.3) fL Immature Gran % (Auto) (0.0-0.4) % Neut % (Auto) (45-73) % Lymph % (Auto) (20-40) % One[place] % (Auto) (2-11) % Eos % (Auto) (0-4) % Baso % (Auto) (0-2) % Lymph # (Auto) (1.2-4.9) X10*3/uL [place] # (Auto) (0.1-1.2) X10*3/uL Eos # (Auto) (0.0-0.4) X10*3/uL Baso # (Auto) (0.0-0.2) X10*3/uL Abs Immat Gran (auto) (0.00-0.03) X10*3/uL Absolute Neuts (auto) (2.0-8.3) x10*3/uL Absolute Nucleated RBC (0.0-0.012) X10*3/uL Nucleated RBC % (auto) (0.0-0.2) /100WBC Smear Tech's Comments Hold Purple Top PT (11.2-13.5) SEC INR (0.9-1.1) APTT (26.7-34.1) SEC Hold Blue Top VBG pH (7.32-7.43) VBG pCO2 mmHg VBG pO2 mmHg VBG HCO3 (22-26) mmol/L VBG O2 Saturation % VBG Base Excess mmol/L Sodium (135-145) mmol/L Potassium (3.3-5.1) mmol/L Chloride (96-108) mmol/L Carbon Dioxide (22-29) mmol/L Anion Gap (12-20) BUN (9-16) mg/dL Creatinine (0.5-1.4) mg/dL Estim Creat Clear Calc Estimated GFR Random Glucose (60-115) mg/dL Lactic Acid (0.5-2.0) mmol/L Lactic Acid F/U @ 2Hr 1.4 (0.5-2.0) mmol/L Calcium (8.4-10.2) mg/dL Magnesium (1.6-2.6) mg/dL Total Bilirubin (0.0-1.0) mg/dL AST (5-31) U/L ALT (0-31) U/L Alkaline Phosphatase (39-117) U/L Troponin I High Sens (<3.5-17.0) ng/L NT-Pro-B Natriuret Pep (<300) pg/mL Total Protein (6.5-8.0) g/dL Albumin (3.5-5.0) g/dL Influenza Type A (PCR) (Negative) Influenza Type B (PCR) (Negative) RSV RNA Qual (PCR) (Negative) SARS-CoV-2 RNA (RT-PCR) (Negative) Independent Interpretation I performed an independent interpretation of an: CT Scan Radiology Impression Discussion of test interpretation with radiology: I have reviewed the radiologist's reading. Chronic Conditions ESRD Critical Care Time Critical Care Time Critical Care Time: Yes Total Critical Care Time: 40 Attestation: Time is exclusive of separately billable procedures. Time includes: direct patient care, patient reassessment, coordination of patient care, interpretation of data (laboratory data, pulse oximetry, arterial blood gases and chest xrays), review of patient's medical records, medical consultation and documentation of patient care. Procedures excluded from critical care time: central intravenous line placement and electrocardiography. Discharge Plan Discharge Clinical Impression: End-stage renal disease (ESRD), Abscess Sepsis Qualifiers: Sepsis type: sepsis due to unspecified organism Sepsis acute organ dysfunction status: with acute organ dysfunction Severe sepsis acute organ dysfunction type: unspecified Severe sepsis shock status: without septic shock Qualified Code(s): A41.9 - Sepsis, unspecified organism Patient Disposition: Admitted As Inpatient
[2025-01-21 17:17] LABS: VBG HCO3 26 mmol/L (22-26); VBG O2 % Saturation 98.0 %
[2025-01-21 17:19] LABS: Venous Blood Gas Refer to POC result
[2025-01-21 17:21] LABS: Hematocrit 23.2 % (37.0-47.0); Hemoglobin 7.9 g/dl (12.0-16.0); Imm Gran Abs Auto 0.05 X10*3/uL (0.00-0.03); Imm Gran Pct Auto 0.8 % (0.0-0.4); Lymphocytes Absolute Auto 0.2 X10*3/uL (1.2-4.9); MANUAL DIFF FLAG SCAN; Mean Corpuscular HGB Conc 34.1 g/dl (31.0-35.0); Mean Corpuscular Hemoglobin 30.3 pg (27.0-33.0); Mean Corpuscular Volume 88.9 fL (80.0-98.0); NRBC Abs Auto 0.000 X10*3/uL (0.0-0.012); NRBC Pct Auto 0.0 /100WBC (0.0-0.2); Platelet Count 208 X10*3/uL (160-400); Red Blood Count 2.61 X10*6/uL (4.20-5.50); SCAN SMEAR FLAG 1; White Blood Count 6.3 X10*3/uL (4.8-10.8)
[2025-01-21 17:34] LABS: Alanine Aminotransferase 21 U/L (0-31); Albumin Level 4.1 g/dL (3.5-5.0); Alkaline Phosphatase 235 U/L (39-117); Anion Gap 22 (12-20); Aspartate Amino Transferase 44 U/L (5-31); Blood Urea Nitrogen 37 mg/dL (9-16); Calcium 8.9 mg/dL (8.4-10.2); Carbon Dioxide 24 mmol/L (22-29); Chloride 100 mmol/L (96-108); Creatinine Clr Calc Pharmacy 12.2; Estimated Glomerular Filt Rate 7; Magnesium 2.0 mg/dL (1.6-2.6); Potassium 4.1 mmol/L (3.3-5.1); Sodium 142 mmol/L (135-145); Total Protein 7.7 g/dL (6.5-8.0)
[2025-01-21 17:37] LABS: Troponin-I High Sensitivity 33.9 ng/L (<3.5-17.0)
[2025-01-21] MEDS: vancomycin/NS 2,000 MG/500 ML PLAST..BAG 250 MG IV (17:40)
[2025-01-21] MEDS: Lactated Ringers 500 ML 999 ML IV (17:40)
--- NOTE | 2025-01-21 17:45 | PC.NURSE ---
Upon arrival to ED, pt a/ox3, respirations even and unlabored, tachypneic at 25rr/min- O2 sat 86-88% on 3L O2 NC- no O2 at baseline. HR 140s -sinus tach, 101.8 oral temp. Sepsis alert called @1704- MD Sánchez at bedside for assessment. Patient endorsing generalized pain x2-3 days. Hx of BKA on 01/05 at [facility], Chronic wound noted to R foot. Both wounds undressed with MD at bedside- Left BKA incision redness noted, no drainage. Pt goes to dialysis Sunday, , Sunday- completed full dialysis treatment today d/t holiday tomorrow. Labs/EKG obtained upon arrival. 20g IV placed Left wrist- medicated per APR with sepsis fluids/abx. Pt refusing additional IV.
[2025-01-21 17:54] LABS: Resp Syncy Virus RNA Qual PCR NEGATIVE (Negative); SARS COV2 PCR INHOUSE NEGATIVE (Negative)
--- OUTSIDE RECORDS SUMMARY | 2025-01-21 18:15 | XMS_ITS | Encounter Summary ---
Author Organization [employer] Address [address] [facility] [address]t [place] [address] Care Team Providers Care Director Instructional Material Name Role Phone Genevieve Gtz MD Primary Care Pro vider Reason for Visit * Reason Onset Date Comments Med Refill 10/23/2024 Encounter Details Date Type Department Care Team ([facility] Contact Info) Description 10/23/2024 Telephone [facility] MEDICINE [address] [place] [address] Genevieve Gtz MD [address] [place], [place] [phone] Med Refill Social History Tobacco Use Types [...] from pt retuning call Contact pt at [phone] * Telephone Encounter - Paola Thurston RN - 10/23/2024 10:24 AM EDT Pt requesting refill of Oxycodone 5mg. No show to VASCULAR [employer]TRASOUND TECHNOLOGIST appt 08/06/24. Multiple TC to pt to r/s, no answer, no c/b. Also no showed to appt with you 09/26/24. Please advise. * Telephone Encounter - Colten Mullen - 10/23/2024 10:07 AM EDT TC from pt requesting medication refill. Medications needing refill : oxyCODONE (Roxicodone) 5 MG immediate release tablet To be sent to: [facility]/pharmacy #[id number] documented in this encounter Plan of Treatment Upcoming Encounters Date Type Department Care Team (Late st Contact Info) Description 01/28/2025 10:15 AM EST Office Visit [facility] MEDICINE [address] [place] [address] Genevieve Gtz MD [address] [place] [address] 02/11/2025 2:45 PM EST Clinical Support [facility] CHC MED & PEDS [address] [place] [address] Paola Thurston, KIRIT [address] [place] [address] documented as of this encounter Goals Goal [...] as of this encounter Care Teams Director Instructional Material Relationship Specialty Start Date End Date Genevieve Gtz MD [address] [place] [address] PCP - General Internal Medicine 10/12/22 documented as of this encounter
--- OUTSIDE RECORDS SUMMARY | 2025-01-21 18:15 | XMS_ITS | Encounter Summary ---
Author Organization [employer] Address [address] [facility] 7t [place] [address] Care Team Providers Care Arcgis Developer Name Role Phone Genevieve Gtz MD Primary Care Pro vider Reason for Visit * Reason Onset Date Comments Med Refill 12/25/2024 Encounter Details Date Type Department Care Team ([facility] Contact Info) Description 12/25/2024 Telephone [facility] MEDICINE [address] [place] [address] Genevieve Gtz MD [address] [place], [place] [phone] Med Refill Social History Tobacco Use Types [...] * Telephone Encounter - Giuseppe Cadena - 12/25/2024 10:08 AM EDT TC from pt requesting medication refill. Medications needing refill : oxyCODONE (Roxicodone) 5 MG immediate release tablet To be sent to: [facility] [place] [address] - [address] [place] [address] documented in this encounter Plan of Treatment Upcoming Encounters Date Type Department Care Team (Late st Contact Info) Description 01/28/2025 10:15 AM EST Office Visit [facility] MEDICINE [address] [place] [address] Genevieve Gtz MD [address] [place] [address] 02/11/2025 2:45 PM EST Clinical Support [facility] CH[facility] MED & PEDS [address] [place] [address] Paola Thurston, KIRIT [address] [place] [address] documented as of this encounter Goals Goal [...] documented as of this encounter Care Teams Arcgis Developer Relationship Specialty Start Date End Date Genevieve Gtz MD [address] [place] [address] PCP - General Internal Medicine 10/12/22 documented as of this encounter
--- OUTSIDE RECORDS SUMMARY | 2025-01-21 18:15 | XMS_ITS | Encounter Summary ---
Author Organization [employer] Address [address] [facility] 7t [place] [address] Care Team Providers Care Biller Name Role Phone Genevieve Gtz MD Primary Care Pro vider Reason for Visit * Reason Onset Date Comments Medication Question 12/25/2024 Encounter Details Date Type Department Care Team ([facility] Contact Info) Description 12/25/2024 Telephone [facility] MEDICINE [address] [place], [place] [phone] Genevieve Gtz MD [address] [place], [place] [phone] Medication Question Social History Tobacco Use Types [...] your housing situation today? I have katya reinoos 09/20/[address] you li [...] Telephone Encounter - Alyssa Hale LPN - 12/25/2024 10:09 AM EDT Last seen 03/07/24. * Telephone Encounter - Giuseppe Cadena - 12/25/2024 10:08 AM EDT TC from pt requesting medication refill. Medications needing refill : albuterol 108 (90 Base) MCG/ACT inhaler To be sent to: [facility]/pharmacy #[id number] [place], [place] - [address] [place] [address] documented in this encounter Plan of Treatment Upcoming Encounters Date Type Department Care Team (Late st Contact Info) Description 01/28/2025 10:15 AM EST Office Visit [facility] MEDICINE [address] [place] [address] Genevieve Gtz MD [address] [place] [address] 02/11/2025 2:45 PM EST Clinical Support [facility] CHC MED & PEDS [address] [place] [address] Paola Thurston, RN [address] [place] [address] documented as of this encounter Goals Goal [...] documented as of this encounter Care Teams Biller Relationship Specialty Start Date End Date Genevieve Gtz MD [address] [place] [address] PCP - General Internal Medicine 10/12/22 documented as of this encounter
--- OUTSIDE RECORDS SUMMARY | 2025-01-21 18:15 | XMS_ITS | Encounter Summary ---
Author Organization [employer] Address [address] [facility] 7t [place] [address] Care Team Providers Care Quality Liaison Name Role Phone Genevieve Gtz MD Primary Care Pro vider Reason for Visit * Reason Onset Date Comments Med Refill 01/08/2025 Encounter Details Date Type Department Care Team ([facility] Contact Info) Description 01/08/2025 Telephone [facility] MEDICINE [address] [place] [address] Genevieve Gtz MD [address] [place], [place] [phone] Med Refill Social History Tobacco Use Types [...] * Telephone Encounter - Giuseppe Cadena - 01/08/2025 3:10 PM EST TC from pt requesting medication refill. Medications needing refill : oxyCODONE (Roxicodone) 5 MG immediate release tablet To be sent to: [facility]/pharmacy #[id number] [place] [address] - [address] [place] [address] documented in this encounter Plan of Treatment Upcoming Encounters Date Type Department Care Team (Late st Contact Info) Description 01/28/2025 10:15 AM EST Office Visit [facility] MEDICINE [address] [place] [address] Genevieve Gtz MD [address] [place] [address] 02/11/2025 2:45 PM EST Clinical Support [facility] CHC MED & PEDS [address] [place] [address] Paola Thurston, KIRIT [address] [place] [address] documented as of this encounter Goals Goal [...] documented as of this encounter Care Teams Quality Liaison Relationship Specialty Start Date End Date Genevieve Gtz MD [address] [place] [id number] PCP - General Internal Medicine 10/12/22 documented as of this encounter
--- OUTSIDE RECORDS SUMMARY | 2025-01-21 18:15 | XMS_ITS | Encounter Summary ---
Author Organization [employer] Address [address] [facility] 7t [place] [address] Care Team Providers Care Nurse Sane Name Role Phone Genevieve Gtz MD Primary Care Pro vider Reason for Visit * Reason Onset Date Comments Hospital Follow-up 01/09/2025 Encounter Details Date Type Department Care Team ([facility] Contact Info) Description 01/09/[address] [facility] [address] [place] [address] Genevieve Gtz MD 230 [place] [address] Hospital Follow-up Social History Tobacco Use Types [...] * Telephone Encounter - Francie Smith - 01/09/2025 2:10 PM EST Tc from pt retuning call Contact pt at [phone] * Telephone Encounter - Clarence Taylor - 01/09/2025 12:59 PM EST Tc from pt requesting a HDF appt. 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 MED[facility] [address] [place] [address] Genevieve Gtz MD 230 [place] [address] 02/11/2025 2:45 PM EST Clinical Support [facility]S [address] [place] [address] Paola Thurston, RN 505 [place] [address] documented as of this encounter Goals Goal [...] documented as of this encounter Care Teams Nurse Sane Relationship Specialty Start Date End Date Genevieve Gtz MD [address] [place] [address] PCP - General Internal Medicine 10/12/22 documented as of this encounter
--- OUTSIDE RECORDS SUMMARY | 2025-01-21 18:15 | XMS_ITS | Encounter Summary ---
Author Organization [employer] Address 75 [facility] 7t [place] [address] Care Team Providers Care Cabbage Salter Name Role Phone Genevieve Gtz MD Primary Care Pro vider Reason for Visit * Reason Comments Med Refill Encounter Details Date Type Department Care Team (Late st Contact Info) Description 08/26/2023 Refill [facility] PEDS [address] [place], [place] [phone] Genevieve Gtz MD 230 [place], [place] [phone] Benign essential hypertension Social History Tobacco Use [...] Description 01/28/2025 10:15 AM EST Office Visit [facility] 230 [place] [address] Genevieve Gtz MD [address] [place] [address] 02/11/2025 2:45 PM EST Clinical Support [facility]S 505 [place], [place] [phone] Paola Thurston, RN 505 [place] [address] documented as of this encounter Goals Goal [...] documented as of this encounter Care Teams Cabbage Salter Relationship Specialty Start Date End Date Genevieve Gtz MD [address] [place] [phone] PCP - General Internal Medicine 10/12/22 documented as of this encounter
--- OUTSIDE RECORDS SUMMARY | 2025-01-21 18:15 | XMS_ITS | Encounter Summary ---
Author Organization [employer] Address 75 [facility] 7t [place] [address] Care Team Providers Care Armed Security Officer Name Role Phone Genevieve Gtz MD Primary Care Pro vider Reason for Visit * Reason Onset Date Comments Call Back Request 06/15/2023 Encounter Details Date Type Department Care Team ([facility] Contact Info) Description 06/15/2023 Telephone [facility] [address] [place], [place] [phone] Genevieve Gtz MD 230 [place], [place] [phone] Call Back Request Social History Tobacco Use [...] pt requesting a call back in regards SKIRT MAKER medication. documented in this encounter Plan of Treatment Upcoming Encounters Date Type Department Care Team ([facility] st Contact Info) Description 01/28/2025 10:15 AM EST Office Visit [facility] [address] [place] [address] Genevieve Gtz MD 230 [place] [address] 02/11/2025 2:45 PM EST Clinical Support [facility] MED [facility] PEDS 505 [place], [place] [phone] Paola Thurston, KIRIT 505 [place] [address] documented as of this encounter Goals Goal [...] documented as of this encounter Care Teams Armed Security Officer Relationship Specialty Start Date End Date Genevieve Gtz MD [address] [place] [address] PCP - General Internal Medicine 10/12/22 documented as of this encounter
--- OUTSIDE RECORDS SUMMARY | 2025-01-21 18:15 | XMS_ITS | Encounter Summary ---
Author Organization [employer] Address 75 [facility] 7t [place] [address] Care Team Providers Care Cutting Machine Fixer Name Role Phone Genevieve Gtz MD Primary Care Pro vider Reason for Visit * Reason Onset Date Comments Hospital Follow-up 03/04/2024 Encounter Details Date Type Department Care Team ([facility] Contact Info) Description 03/04/2024 Telephone [facility] MEDICINE 230 [place], [place] [phone] Genevieve Gtz MD 230 [place] [address] Hospital Follow-up Social History Tobacco Use Types [...] from pt requesting a HDF appt. Hospital: [facility] [place] Date of admission: 02/21/2024 Discharge date: 02/01/2025 Diagnosed: Oxygen , Infection Dialysis tube *Send message to [place] Clinical Care Coordinators documented in this encounter Plan of Treatment Upcoming Encounters Date Type Department Care Team (Late st Contact Info) Description 01/28/2025 10:15 AM EST Office Visit [facility] MEDICINE [address] [place] [address] Genevieve Gtz MD 230 [place] [address] 02/11/2025 2:45 PM EST Clinical Support [facility] MED [facility] PEDS 505 [place] [address] Paola Thurston, KIRIT 505 [place] [address] documented as of this encounter Goals Goal [...] documented as of this encounter Care Teams Cutting Machine Fixer Relationship Specialty Start Date End Date Genevieve Gtz MD [address] [place] [address] PCP - General Internal Medicine 10/12/22 documented as of this encounter
--- OUTSIDE RECORDS SUMMARY | 2025-01-21 18:15 | XMS_ITS | Encounter Summary ---
Author Organization [employer] Address 75 [facility] 7t [place] [address] Care Team Providers Care Physiologist Name Role Phone Genevieve Gtz MD Primary Care Pro vider Reason for Visit * Reason Onset Date Comments Med Refill 06/20/2024 Encounter Details Date Type Department Care Team ([facility] Contact Info) Description 06/20/2024 Telephone [facility] MEDICINE 230 [place] [address] Genevieve Gtz MD 230 [place], [place] [phone] Med Refill Social History Tobacco Use Types [...] release tablet To be sent to: [id number] [place] [address] - [address] [place] [address] documented in this encounter Plan of Treatment Upcoming Encounters Date Type Department Care Team (Late st Contact Info) Description 01/28/2025 10:15 AM EST Office Visit [facility] MEDICINE 230 [place] [address] Genevieve Gtz MD 230 [place] [address] 02/11/2025 2:45 PM EST Clinical Support [facility] MED [facility] PEDS 505 [place] [address] Paola Thurston, KIRIT 505 [place] [address] documented as of this encounter Goals Goal [...] documented as of this encounter Care Teams Physiologist Relationship Specialty Start Date End Date Genevieve Gtz MD [address] [place] [address] PCP - General Internal Medicine 10/12/22 documented as of this encounter
--- OUTSIDE RECORDS SUMMARY | 2025-01-21 18:16 | XMS_ITS | Encounter Summary ---
Author Organization [employer] Address 75 [facility] 7t [place] [address] Care Team Providers Care Lumber Mover Name Role Phone Genevieve Gtz MD Primary Care Pro vider Reason for Visit * Reason Onset Date Comments Medication Question 11/11/2024 Encounter Details Date Type Department Care Team ([facility] Contact Info) Description 11/11/2024 Telephone [facility] MEDICINE 230 [place], [place] [phone] Genevieve Gtz MD 230 [place], [place] [phone] Medication Question Social History Tobacco Use Types [...] MG immediate release tablet Contact pt at [phone] documented in this encounter Plan of Treatment Upcoming Encounters Date Type Department Care Team (Late st Contact Info) Description 01/28/2025 10:15 AM EST Office Visit [facility] MEDICINE [address] [place] [address] Genevieve Gtz MD 230 [place] [address] 02/11/2025 2:45 PM EST Clinical Support [facility] MED [facility] PEDS 505 [place] [address] Paola Thurston, KIRIT 505 [place] [address] documented as of this encounter Goals Goal [...] documented as of this encounter Care Teams Lumber Mover Relationship Specialty Start Date End Date Genevieve Gtz MD [address] [place] [address] PCP - General Internal Medicine 10/12/22 documented as of this encounter
--- OUTSIDE RECORDS SUMMARY | 2025-01-21 18:16 | XMS_ITS | Encounter Summary ---
Author Organization [employer] [facility] Address [address] [place] [address] 7t [place] [address] Care Team Providers Care Mica Builder Name Role Phone Carolina Hsu ELECTROENCEPHALOGRAPH TECHNICIAN Primary Care Provider Genevieve Wilson MD Primary Care Pro vider Encounter Details Date Type Department Care Team (Late Contact Info) Description 09/11/2022 Abstract [facility] MEDICINE [address] [place] [address] Carolina Hsu FNP Social History Tobacco Use [...] Department Care Team (Late Contact Info) Description 01/28/2025 10:15 AM EST Office Visit [facility] MEDICINE [address] [place] [address] Genevieve Gtz MD 230 [place] [address] 02/11/2025 2:45 PM EST Clinical Support [facility] MED & PEDS 505 [place] [address] Paola Thurston, RN 505 [place] [address] documented as of this encounter Visit Diagnoses Not on filedocumented in this encounter Care Teams Mica Builder Relationship Specialty Start Date End Date Carolina Hsu FNP PCP - General Family Medicine 01/16/22 10/11/22 Genevieve Gtz MD [address] [place] [address] PCP - General Internal Medicine 10/12/22 documented as of this encounter
--- OUTSIDE RECORDS SUMMARY | 2025-01-21 18:16 | XMS_ITS | Encounter Summary ---
Author Organization [employer] [facility] Address [address] [place] [address] 7t [place] [address] Care Team Providers Care Hire Car Driver Name Role Phone Carolina Hsu COBOL DEVELOPER Primary Care Provider Genevieve Wilson MD Primary Care Pro vider Encounter Details Date Type Department Care Team (Late Contact Info) Description 09/11/2022 Abstract [facility] MEDICINE [address] [place] [address] Carolina Hsu FNP Social History Tobacco Use [...] Description 01/28/2025 10:15 AM EST Office Visit [facility] MEDICINE [address] [place] [address] Genevieve Gtz MD 230 [place] [address] 02/11/2025 2:45 PM EST Clinical Support [facility] MED & PEDS 505 [place] [address] Paola Thurston, RN 505 [place] [address] documented as of this encounter Visit Diagnoses Not on filedocumented in this encounter Care Teams Hire Car Driver Relationship Specialty Start Date End Date Carolina Hsu FNP PCP - General Family Medicine 01/16/22 10/11/22 Genevieve Gtz MD [address] [place] [address] PCP - General Internal Medicine 10/12/22 documented as of this encounter
--- OUTSIDE RECORDS SUMMARY | 2025-01-21 18:16 | XMS_ITS | Encounter Summary ---
Author Organization [employer] Address 75 [facility] 7t [place] [address] Care Team Providers Care Chief Radiation Therapist Name Role Phone Genevieve Gtz MD Primary Care Pro vider Reason for Visit * Reason Onset Date Comments Med Refill 11/21/2024 Encounter Details Date Type Department Care Team ([facility] Contact Info) Description 11/21/2024 Telephone [facility] MEDICINE 230 [place] [address] Genevieve Gtz MD 230 [place], [place] [phone] Med Refill Social History Tobacco Use Types [...] release tablet To be sent to: - [id number] documented in this encounter Plan of Treatment Upcoming Encounters Date Type Department Care Team (Late st Contact Info) Description 01/28/2025 10:15 AM EST Office Visit [facility] MEDICINE 230 [place] [address] Genevieve Gtz MD 230 [place] [address] 02/11/2025 2:45 PM EST Clinical Support [facility] MED & PEDS 505 [place], [place] [phone] Paola Thurston, KIRIT 505 [place], [place] [phone] documented as of this encounter Goals Goal [...] documented as of this encounter Care Teams Chief Radiation Therapist Relationship Specialty Start Date End Date Genevieve Gtz MD [address] [place] [address] PCP - General Internal Medicine 10/12/22 documented as of this encounter
--- OUTSIDE RECORDS SUMMARY | 2025-01-21 18:16 | XMS_ITS | Encounter Summary ---
Author Organization [employer] [facility] Address [address] [place] [address] 7t [place] [address] Care Team Providers Care Athletic Monitor Name Role Phone Carolina Hsu HAZARDOUS MATERIALS HANDLER Primary Care Provider Genevieve Wilson MD Primary Care Pro vider Encounter Details Date Type Department Care Team (Late Contact Info) Description 09/11/2022 Abstract [facility] MEDICINE [address] [place] [address] Carolina Hsu FNP Social History Tobacco Use [...] Description 01/28/2025 10:15 AM EST Office Visit [facility] MEDICINE [address] [place] [address] Genevieve Gtz MD 230 [place] [address] 02/11/2025 2:45 PM EST Clinical Support [facility] MED [facility] PEDS 505 [place] [address] Paola Thurston, RN 505 [place] [address] documented as of this encounter Visit Diagnoses Not on filedocumented in this encounter Care Teams Athletic Monitor Relationship Specialty Start Date End Date Carolina Hsu FNP PCP - General Family Medicine 01/16/22 10/11/22 Genevieve Gtz MD [address] [place] [address] PCP - General Internal Medicine 10/12/22 documented as of this encounter
--- OUTSIDE RECORDS SUMMARY | 2025-01-21 18:16 | XMS_ITS | Encounter Summary ---
Author Organization [employer] Address 75 [facility] 7t [place] [address] Care Team Providers Care Alarm Installer Name Role Phone Genevieve Gtz MD Primary Care Pro vider Encounter Details Date Type Department Care Team (Late st Contact Info) Description 01/21/[address] [facility] MEDICINE 230 [place], [place] [phone] Genevieve Gtz MD 230 [place], [place] [phone] Social History Tobacco Use Types Packs/Day Years [...] Oxycodone 5mg , pt requests a callback [phone] documented in this encounter Plan of Treatment Upcoming Encounters Date Type Department Care Team (Late st Contact Info) Description 01/28/2025 10:15 AM EST Office Visit [facility] MEDICINE [address] [place] [address] Genevieve Gtz MD [address] [place] [address] 02/11/2025 2:45 PM EST Clinical Support [facility] CHC MED & PEDS 505 [place] [address] Paola Thurston, KIRIT 505 [place] [address] documented as of this encounter Goals Goal [...] documented as of this encounter Care Teams Alarm Installer Relationship Specialty Start Date End Date Genevieve Gtz MD [address] [place] [address] PCP - General Internal Medicine 10/12/22 documented as of this encounter
--- OUTSIDE RECORDS SUMMARY | 2025-01-21 18:16 | XMS_ITS | Clinical Summary ---
Author Organization [employer] Address [address] [facility] [address] [place] [address] Care Team Providers Care Paper Cone Maker Name Role Phone Genevieve Gtz MD [...] ATTACHED FOR DETAILED DIRECTIONS 12/01/19 24 Active lidocaine (Lidoderm) 5 % patch APPLY 1 PATCH TOPICALLY DAILY LEAVE ON MOST PAINFUL AREA FOR UP TO 12 HOURS 30 patch 2 01/02/20 24 Active Blood Pressure kit 1 Device Once per day. 1 kit 01/02/20 24 Active nitroglycerin (Nitrostat) 0.[address] 1 TABLET UNDER THE TONGUE EVERY 5 MINUTES NEEDED FOR CHEST PAIN 90 tablet 02/28/19 25 Active carvedilol (Coreg) 12.5 MG tabletIndicatio ns:Benign essential hypertension TAKE 1 TABLET BY MOUTH TWICE A DAY 180 tablet 12/16/19 25 Active hydrALAZINE (Apresoline) 50 MG tabletIndicatio ns:Benign essential hypertension Take 1 tablet (50 mg) by mouth 3 times daily. 270 tablet 12/16/19 Active albuterol 108 (90 Base) MCG/ACT inhaler INHALE 2 PUFFS BY MOUTH EVERY 6 HOURS NEEDED FOR WHEEZING 18 g 5 12/26/19 Active oxyCODONE (Roxicodone) 5 MG immediate release tablet Take 1 tablet by mouth every 8 (eight) hours if needed for severe pain. Active acetaminophen (Tylenol) 325 MG tablet Take 2 tablets by mouth every 4 (four) hours if needed for mild pain. Active naloxone (Narcan) 4 mg/0.1 mL nasal sprayIndication s:Chronic wound Administer 1 spray (4 mg) into affected nostril(s) if needed for opioid reversal. May repeat every 2-3 minutes if needed, alternating nostrils, until medical assistance becomes available. 2 each 3 01/02/20 24 2024 albuterol 108 (90 Base) MCG/ACT inhaler INHALE 2 PUFFS BY MOUTH EVERY 6 HOURS NEEDED FOR WHEEZING 18 g 1 02/28/19 25 2024 Discontinued(R eorder (will not trigger notification to Pharmacy)) acetaminophen (Tylenol) 325 MG tabletIndicatio ns:Acute on chronic heart failure, unspecified heart failure type (HCC) TAKE 2 TABLETS BY MOUTH EVERY 4 HOURS IF NEEDED FOR MILD PAIN 120 tablet 2 02/28/19 25 2024 Discontinued(M ed list cleanup (will not trigger notification to Pharmacy)) oxyCODONE (Roxicodone) 5 MG immediate release tabletIndicatio ns:Chronic ulcer of left foot due to diabetes mellitus (HCC) Take 1 tablet (5 mg) by mouth every 8 (eight) hours if needed for severe pain for up to 14 days. Do not start before December 17, 2024. 42 tablet 12/18/19 25 2024 Discontinued(R eorder (will not trigger notification to Pharmacy)) oxyCODONE (Roxicodone) 5 MG immediate release tabletIndicatio ns:Chronic ulcer of left foot due to diabetes mellitus (HCC) Take 1 tablet (5 mg) by mouth every 8 (eight) hours if needed for severe pain for up to 14 days. Do not start before December 30, 2024. 42 tablet 12/31/19 25 2024 Discontinued(R eorder (will not trigger notification to Pharmacy)) oxyCODONE (Roxicodone) 5 MG immediate release tabletIndicatio ns:Chronic ulcer of left foot due to diabetes mellitus (HCC) Take 1 tablet (5 mg) by mouth every 8 (eight) hours if needed for severe pain for up to 14 days. Do not start before January 14, 2025. 42 tablet 01/15/20 25 2024 Discontinued(M ed list cleanup (will not trigger notification to Pharmacy)) Active Problems Problem Noted Date Diagnosed Date Multiple sclerosis 09/17/2024 Acute hyperkalemia 09/04/2024 Cerebral infarction 09/04/2024 MDD (major depressive disorder), recurrent episo de 09/04/2024 Hyponatremia 09/04/2024 PAD (peripheral artery disease) 09/04/2024 Prolonged QT interval 09/04/2024 Toe necrosis ([facility]/HCC) 09/04/2024 Ulcer of left second toe 09/04/2024 Vitreous detachment 09/04/2024 Volume overload 09/04/2024 Opioid dependence 09/04/2024 Seizure disorder ([facility]/HCC) 09/04/2024 Long-term current use of opiate analgesic 2024 Neurogenic bladder 03/07/2024 Bacteremia due to Pseudomonas 01/03/2024 Infection due to 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 ([facility]/HCC) 10/23/2023 Seizure ([facility]) 10/23/2023 Opioid dependence with opioid-induced disorder ( [facility]) 10/23/2023 Blindness of both eyes 10/23/2023 [...] ulcer of left foot due to diabetes robyni tus 08/26/2022 Overview (06/25/2023): Care managed by [...] organization. Date Type Department Care Team Description 01/14/[address] [phone] Jackie Narvaez, automotive diagnostic technician Question; Durable Medical Equipment 01/11/2025 Orders Only GENERIC EXTERNAL DATA DEPARTMENT Provider, Generic External Data 01/09/2025 Patient Outreach [facility] [address] [place] [phone] Genevieve Gtz MD Transition Of Care (Tcm) (HDF scheduled) 01/09/[address] [address] Genevieve Gtz MD Hospital Follow-up 01/08/2025 Refill [facility] [address] [place] [address] Paola Thurston RN Chronic ulcer of left foot due to diabetes mellitus (HCC) 01/08/[address] [address] Genevieve Gtz MD Med Refill 12/31/2024 10:00 AM EST Telemedicine [facility] [address] [place] [address] Paola Thurston RN Long-term current use of opiate analgesic 12/31/2024 Travel 12/25/2024 Orders Only [facility] [address] [place] [address] Genevieve Gtz MD 12/25/2024 Refill [facility] [address] [place] [address] Paola Thurston RN Chronic ulcer of left foot due to diabetes mellitus (HCC) 12/25/2024 Telephone [facility] [address] [place] [phone] Genevieve Gtz MD Med Refill 12/25/[address] [address] Genevieve Gtz MD Medication Question 12/25/2024 Orders Only [facility] [address] [place] [phone] Genevieve Gtz MD 12/23/[address] [address] Genevieve Gtz MD Durable Medical Equipment 12/22/2024 Orders Only GENERIC EXTERNAL DATA DEPARTMENT Provider, Generic External Data 12/21/2024 Orders Only GENERIC EXTERNAL DATA DEPARTMENT Provider, Generic External Data 12/19/2024 Orders Only GENERIC EXTERNAL DATA DEPARTMENT Provider, Generic External Data 12/15/2024 Refill [facility] [address] [place] [address] Paola Thurston RN Chronic ulcer of left foot due to diabetes mellitus ([facility]) 12/15/[address] [address] Genevieve Gtz MD Med Refill 12/15/2024 Refill [facility] [address] [place] [phone] Genevieve Gtz MD Benign essential hypertension 12/10/2024 Orders Only [facility] External Provider, [facility] 12/09/2024 Orders Only GENERIC EXTERNAL DATA DEPARTMENT Provider, Generic External Data 12/04/2024 Refill [facility] [address] [place] [address] Paola Thurston RN Chronic ulcer of left foot due to diabetes mellitus (HCC) 12/04/2024 Telephone [facility] [address] [place] [phone] Genevieve Gtz MD Med Refill 12/01/2024 2:30 PM EDT Telemedicine [facility] [address] [place] [address] Paola Thurston, KIRIT Long-term current use of opiate analgesic 12/01/2024 Travel 11/25/[address] [address] Genevieve Gtz MD chart prep 11/21/2024 Orders Only [facility] [address] [place] [phone] Genevieve Gtz MD Chronic ulcer of left foot due to diabetes mellitus ([facility]) 11/21/2024 Refill [facility] [address] [place] [address] Paola Thurston RN Chronic ulcer of left foot due to diabetes mellitus ([facility]) 11/21/[address] [address] Genevieve Gtz MD Med Refill 11/20/2024 Telephone [facility] [address] [place] [address] Paola Thurston RN 11/19/2024 3:15 PM EDT Clinical Support [facility] [address] [place] [address] Paola Thurston, KIRIT Long-term current use of opiate analgesic (Primary Dx) 11/19/2024 Orders Only [address] [address] Genevieve Gtz MD 11/19/2024 Telephone [facility] [address] [place] [address] Paola Thurston RN 11/19/2024 Travel 11/11/[address] [address] Genevieve Gtz MD Medication Question 11/10/2024 Patient Outreach [facility] [address] [place] [address] Genevieve Gtz MD Pre-visit Planning (HDF scheduled. ) 11/10/2024 [address]phone [address] [place] [address] Genevieve Gtz MD telephone call 11/06/2024 Telephone [facility] [address] [place] [address] Genevieve Gtz MD FYI 10/24/2024 Travel 10/24/2024 Telephone [facility] [address] [place] [address] Paola Thurston RN 10/23/2024 Refill [facility] [address] [place] [address] Paola Thurston, transliterator ulcer of 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 (CMS/HCC); Chronic wound 10/23/[address] [address] Genevieve Gtz MD Med Refill from Last [...] Description 01/28/2025 10:15 AM EST Office Visit [facility] [address] [place], [place] [phone] Genevieve Gtz MD [address] [place], [place] [phone] 02/11/2025 2:45 PM EST Clinical Support [facility] [address] [place], [place] [phone] Paola Thurston, KIRIT [address] [place], [place] [phone] Health Maintenance Due Date Last Done Comments [...] Procedure Name Priority Date/Time Associated Diagnosis Comments VENOUS BLOOD GAS Routine 01/11/2025 4:44 PM EST GLUCOSE, WHOLE BLOOD Routine 01/11/2025 4:19 PM EST URINALYSIS, COMPLETE, WITH REFLEX TO CULTURE Routine 01/11/2025 3:44 PM EST XR CHEST 1 VIEW Routine 01/11/2025 2:24 PM EST CREATINE KINASE, TOTAL Routine 2:06 PM EST HIGH SENSITIVITY TROPONIN I Routine 01/11/2025 2:06 PM EST MAGNESIUM Routine 01/11/2025 2:06 PM EST BASIC METABOLIC PANEL Routine 01/11/2025 2:06 PM EST HEPATIC FUNCTION PANEL Routine 2:06 PM EST SLIDE REVIEW Routine 01/11/2025 2:06 PM EST CBC WITH AUTO DIFFERENTIAL Routine 01/11/2025 2:06 PM EST PROTHROMBIN TIME-INR Routine 01/11/2025 2:06 PM EST SARS COV2/INFLUENZA A/B AND RSV RNA QL NAAT Routine 01/11/2025 2:[address] CERVICAL SPINE WO CONTRAST Routine 12/22/2024 10:[address] HEAD WO CONTRAST Routine 12/22/2024 1 0:37 AM EDT XR FOOT 3+ VIEWS LEFT Routine 12/22/2024 [...] Recently Relevant to Health Maintenance Results * VENOUS BLOOD GAS (01/11/2025 4:44 PM EST) VBG pH 7.36 7.32 - 7.43 [facility] Comment:METER #: [id number] additional_comment: Cb edwardt VBG PCO2 42 mmHg [facility] Comment:METER #: [id number] additional_comment: Cb edwardt VBG PO2 55 mmHg [facility] Comment:METER #: [id number] additional_comment: Cb edwardt VBG Base Excess -0.9 mmol/L [facility] Comment:METER #: [id number] additional_comment: Cb edwardt VBG HCO3 24 22 - 26 mmol/L [facility] Comment:METER #: [id number] additional_comment: Cb edwardt O2 Sat, Uday TNP % [facility] 01/11/2025 4:44 PM EST 01/11/2025 4:50 PM EST us Generic External Data Provider LAB BLOOD ORDERAB LES Final Result Performing Organization Address [facility] Co de Phone Number [facility] [address] [place] [phone] * Glucose, Whole Blood (01/11/2025 4:19 PM EST) Glucose, Whole Blood 81 60 - 115 mg/dL [facility] Comment:METER #: [id number] 01/11/2025 4:19 PM EST 01/11/2025 4:23 PM EST Generic External Data Provider LAB BLOOD ORDERAB LES Final Result Performing Organization Address [facility] de Phone Number [facility] [address] [place] [phone] * (ABNORMAL) Urinalysis, Complete, with Reflex to Culture (01/11/2025 3:44 PM EST) Color Urine Yellow [facility] Appearance Urine Clear [facility] PH 7.5 5.0 - 9.0 [facility] Glucose Urine UA 100(A) Negative mg/dL [facility] Urine Blood Negative Negative [facility] Specific [place] - Urine 1.015 1.005 - 1.025 [facility] Urine Protein 300 (3+)(A) Neg-Trace mg/dL [facility] Urine Ketones Negative Negative mg/dL [facility] Nitrite Urine Negative Negative [facility] Leukocyte Esterase Urine Trace(A) Negative [facility] RBC Urine 0-2 0 - 2 /HPF [facility] Urine WBC 11-20(A) 0 - 5 /HPF [facility] Urine Squamous Epithelial Cell 3-5 0 - 2 /HPF [facility] Urine Bacteria None Seen None Seen [facility] Hyaline Casts, Urine 0-2 0 - 2 /LPF [facility] 01/11/2025 3:44 PM EST 01/11/2025 3:46 PM EST Narrative [facility] - 01/11/2025 3:53 PM EST [id number], Catheterized us Generic External Data Provider LAB URINE ORDERAB LES Final Result Performing Organization Address City/State/[facility] Co de Phone Number [facility] [address] [place] [phone] * XR Chest 1 View (01/11/2025 2:24 PM EST) Only the most recent of2 resultswithin the time period is included. Anatomical Region Laterality Modality Chest Radiographic Vandana ging 01/11/2025 2:24 PM EST Narrative 01/11/2025 2:25 PM EST [address] [address] XRay Report Signed Patient: Shereen Taylor MR#: [id number] : 1990 Acct:[id number] Age/Sex: 34 / F ADM Date: 01/11/25 Loc: HO.ED Attending Dr: Ordering Physician: Larissa Hartman Date of Service: 01/11/25 Procedure(s): XR chest 1V Accession Number(s): [id number] cc: Genevieve Gtz MD; Larissa Hartman Reason for Exam: SOB CLINICAL HISTORY: SOB 1 view chest x-ray. Comparison: None Findings: No consolidation or effusion. Cardiac and mediastinal contours appear stable. Central line is re-identified in stable position, tip overlying right atrium.. Bones unremarkable. Impression: 1. No acute pulmonary disease. This document has been electronically signed by: Anderson Beckford MD on 01/11/2025 14:24:08 Dictated By: Anderson Beckford MD Signed By: <Electronically signed by Anderson Beckford MD in OV> 01/11/25 1425 DD/ 1424 TD/TT: 01/11/251423 Business Technology Analyst: Procedure Note Donotuseinterpreter, Image - 01/11/[address] [address] XRay Report Signed Patient: Danna Taylor#: [id number] : 1990Acct:[id number] Age/Sex: 34 / FADM Date: 01/11/25 Loc: HO.ED Attending Dr: Ordering Physician: Larissa Hartman Date of Service: 01/11/25 Procedure(s): XR chest 1V Accession Number(s): [id number] cc: Genevieve Gtz MD; Larissa Hartman Reason for Exam: SOB CLINICAL HISTORY: SOB 1 view chest x-ray. Comparison: None Findings: No consolidation or effusion. Cardiac and mediastinal contours appear stable. Central line is re-identified in stable position, tip overlying right atrium.. Bones unremarkable. Impression: 1. No acute pulmonary disease. This document has been electronically signed by: Anderson Beckford MD on 01/11/2025 14:24:08 Dictated By: Anderson Beckford MD Signed By: <Electronically signed by Anderson Beckford MD in OV> 01/11/251424 DD/ 23 TD/TT: 01/11/251423 Business Technology Analyst: [facility] External Provider IMG XR PROCEDURES Final Result * Slide Review (01/11/2025 2:06 PM EST) Slide Review VERIFIED [facility] 01/11/2025 2:06 PM EST 01/11/2025 2:08 PM EST Generic External Data Provider LAB BLOOD ORDERAB LES Final Result [facility] [address] [place] [phone] * (ABNORMAL) High Sensitivity Troponin I (01/11/2025 2:06 PM EST) Only the most recent of2 resultswithin the time period is included. TROPONIN I HIGH SENSITIVITY 81.7(HH) <3.5 - 17.0 ng/L [facility] Comment:Critical value for t est(s):TROP Results called to and readback by: EZIO Person calling: PATRICKVV Date:01/11/2025 Time:14:45The [place] high sensitivity Troponin-I results should beused in conjunction with other diagnostic information suchas ECG, clinical observations and information, and patientsymptoms to aid in the diagnosis of CA. 01/11/2025 2:06 PM EST 01/11/2025 2:08 PM EST us Generic External Data Provider LAB BLOOD ORDERAB LES Final Result [facility] [address] [place] [phone] * SARS-CoV-2 RNA, Influenza A/B, and RSV RNA, Ql NAAT (01/11/2025 2:06 PM EST) Influenza A PCR NEGATIVE Negative [facility] Influenza B PCR NEGATIVE Negative [facility] Resp Syncy Virus RNA Qual PCR NEGATIVE Negative [facility] SARS COV2 PCR NEGATIVE Negative [facility] Comment:All test results mus t [...] use by authorized laboratories.Testing performed on the real trends GeneXpert utilizingreal-time RT-PCR.All SARS CoV2 and positive influenza A/B results arereported to [facility]. 01/11/2025 2:06 PM EST 01/11/2025 2:08 PM EST us Generic External Data Provider LAB MICROBIOLOGY - GENERAL ORDERABLES Final Result [facility] [address] [place] [address] [phone] * (ABNORMAL) CBC auto differential (01/11/2025 2:06 PM EST) Only the most recent of4 resultswithin the time period is included. White Blood Count 4.6(L) 4.8 - 10.8 X10*3/uL [facility] Red Blood Count 2.50(L) 4.20 - 5.50 X10*6/uL [facility] Hemoglobin 7.6(L) 12.0 - 16.0 g/dl [facility] Hematocrit 22.9(L) 37.0 - 47.0 % [facility] Mean Corpuscular Volume 91.6 80.0 - 98.0 fL [facility] Mean Corpuscular Hemoglobin 30.4 27.0 - 33.0 pg [facility] Mean Corpuscular HGB Conc 33.2 31.0 - 35.0 g/dl [facility] Red Cell Distribution Width 13.8 11.0 - 16.0 % [facility] Platelet Count 128(L) 160 - 400 X10*3/uL [facility] Mean Platelet Volume 11.2 9.4 - 12.3 fL [facility] Neutrophils Percent Auto 71.5 45 - 73 % [facility] Imm Gran Pct Auto 0.4 0.0 - 0.4 % [facility] Lymphocytes Percent Auto 10.7(L) 20 - 40 % [facility] Monocytes Percent Auto 13.5(H) 2 - 11 % [facility] Eosinophils Percent Auto 3.7 0 - 4 % [facility] Basophils Percent Auto 0.2 0 - 2 % [facility] NRBC Pct Auto 0.0 0.0 - 0.2 /100WBC [facility] Neutrophils Absolute Auto 3.3 2.0 - 8.3 x10*3/uL [facility] Imm Gran Abs Auto 0.02 0.00 - 0.03 X10*3/uL [facility] Lymphocytes Absolute Auto 0.5(L) 1.2 - 4.9 X10*3/uL [facility] Monocytes Absolute Auto 0.6 0.1 - 1.2 X10*3/uL [facility] Eosinophils Absolute Auto 0.2 0.0 - 0.4 X10*3/uL [facility] Basophils Absolute Auto 0.0 0.0 - 0.2 X10*3/uL [facility] NRBC Abs Auto 0.000 0.0 - 0.012 X10*3/uL [facility] 01/11/2025 2:06 PM EST 01/11/2025 2:08 PM EST us Generic External Data Provider LAB BLOOD ORDERAB LES Edited Result - Final [facility] [address] [place] [phone] * (ABNORMAL) Prothrombin Time-INR (01/11/2025 2:06 PM EST) Only the most recent of2 resultswithin the time period is included. Prothrombin Time 13.6(H) 11.2 - 13.5 SEC [facility] INTERNATIONAL NORM RATIO 1.1 0.9 - 1.1 [facility] Comment:INTERNATIONAL NORMAL IZED RATIO (INR) REFERENCE RANGES Reference RangeFor patients not on anticoagulant therapy: 0.9 - 1.1INR ranges for oral anticoagulanttherapy:For prevention and treatment of venous thrombosis and pulmonary embolism: 2.0 - 3.0For acute myocardial infarction with aspirin therapy: 2.0 - 3.0For acute myocardial infarction without aspirin therapy: 3.0 - 4.0For patients with mechanical prosthetic heart valves: 2.5 - 3.5 01/11/2025 2:06 PM EST 01/11/2025 2:08 PM EST us Generic External Data Provider LAB BLOOD ORDERAB LES Final Result Performing Organization Address [facility] Co de Phone Number [facility] [address] [place] [phone] * (ABNORMAL) Magnesium (01/11/2025 2:06 PM EST) Only the most recent of3 resultswithin the time period is included. Magnesium 2.8(H) 1.6 - 2.6 mg/dL [facility] 01/11/2025 2:06 PM EST 01/11/2025 2:08 PM EST Generic External Data Provider LAB BLOOD ORDERAB LES Final Result Performing Organization Address [facility] Co nc Phone Number [facility] [address] [place] [phone] * (ABNORMAL) Creatine Kinase, Total (01/11/2025 2:06 PM EST) Creatine Kinase Total 223(H) 26 - 140 U/L [facility] 01/11/2025 2:06 PM EST 01/11/2025 2:08 PM EST Generic External Data Provider LAB BLOOD ORDERAB LES Final Result Performing Organization Address [facility] de Phone Number [facility] [address] [place] [phone] * (ABNORMAL) Hepatic Function Panel (01/11/2025 2:06 PM EST) Only the most recent of2 resultswithin the time period is included. Bilirubin, Total 0.5 0.0 - 1.0 mg/dL [facility] Bilirubin, Direct 0.2 0.0 - 0.5 mg/dL [facility] Aspartate Amino Transferase 47(H) 5 - 31 U/L [facility] Comment:Slight Hemolysis.Int erpret result with caution. Alanine Aminotransferase <6 0 - 31 U/L [facility] Total Protein 7.6 6.5 - 8.0 g/dL [facility] Albumin Level 3.7 3.5 - 5.0 g/dL [facility] Alkaline Phosphatase 273(H) 39 - 117 U/L [facility] 01/11/2025 2:06 PM EST 01/11/2025 2:08 PM EST us Generic External Data Provider LAB BLOOD ORDERAB LES Final Result [facility] [address] [place] [phone] * (ABNORMAL) Basic Metabolic Panel (01/11/2025 2:06 PM EST) Sodium 132(L) 135 - 145 mmol/L [facility] Potassium 6.5(HH) 3.3 - 5.1 mmol/L [facility] Comment:Slight Hemolysis.Int erpret result with caution.Critical value for test(s):K Results called to and readback by: EZIO Person calling:PATRICKMirriadVDate:01/11/2025 Time:14:45 Chloride 94(L) 96 - 108 mmol/L [facility] Carbon Dioxide 18(L) 22 - 29 mmol/L [facility] Anion Gap 27(H) 12 - 20 [facility] Urea Nitrogen (BUN) 82(H) 9 - 16 mg/dL [facility] Creatinine, Serum 13.22(HH) 0.5 - 1.4 mg/dL [facility] Comment:Critical value for t est(s): CREAT Results called to andread back by:EZIO Person calling:[employer] Date:01/11/2025 Time:14:45 Creatinine Clr Calc Pharmacy 6.2 [facility] Comment:Provided height and weight: 167.64 cm,80 kg.eGFR (calculated from the MDRD study equation) and eCrCl(calculated from the Cockcroft-Gault equation) are based ondifferent parameters and may not yield comparable results.If eCrCl result is absurd, please check patient'sheight/weight. Estimated Glomerular Filt Rate 3 [facility] Comment:Chronic Kidney Disea se: Estimated GFR < 60 mL/min/1.45o7Bskxly Kidney Disease: Estimated GFR < 15 mL/min/1.73m2 Glucose 87 60 - 115 mg/dL [facility] Calcium 8.7 8.4 - 10.2 mg/dL [facility] 01/11/2025 2:06 PM EST 01/11/2025 2:08 PM EST us Generic External Data Provider LAB BLOOD ORDERAB LES Final Result Performing Organization Address City/State/[facility] Co de Phone Number [facility] [address] [place] [address] [phone] * CT Cervical Spine w/o Contrast (12/22/2024 10:37 AM EDT) Anatomical Region Laterality Modality Spine, C-spine Computed Tomogra phy 12/22/2024 10:3 7 AM EDT Narrative 12/22/2024 11:17 AM EDT [place] [address] CT Scan Report Signed Patient: Shereen Taylor MR#: [id number] : 1990 Acct:[id number] Age/Sex: 34 / F ADM Date: 12/22/24 Loc: .ED Attending Dr: Ordering Physician: Urszula Garcia Date of Service: 12/22/24 Procedure(s): CT cervical spine wo IV con Accession Number(s): [id number] cc: Genevieve Gtz MD; Urszula Garcia Report Number: [id number]: Total DLP = 508.00 mGy-cm Reason for Exam: fall neck pain +HS EXAMINATION: CT CERVICAL SPINE WITHOUT CONTRAST CLINICAL INFORMATION: Neck pain, head trauma COMPARISON: August 27, 2024 TECHNIQUE: Axial imaging was performed from the base of the skull through T2 without IV contrast. Coronal and sagittal reformatted images were generated from the original axial data set. ALARA: The examination used one or more of the following radiation dose reduction techniques: Automated exposure control, iterative reconstruction, and/or adjustment of mA and/or KV. FINDINGS: There is mild reversal cervical lordosis. 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 There is no prevertebral soft tissue edema. Soft tissues are unremarkable. CT/CT cervical spine wo IV con IMPRESSION: There is mild reversal of cervical lordosis. This can be related to positioning, muscle spasm, or posterior soft tissue injury. No acute abnormality. Electronically signed by: Juan Alberto Guevara MD 12/22/2024 11:13 AM EDT RP Dictated By: Juan Alberto Guevara MD Signed By: <Electronically signed by Juan Alberto Guevara MD in OV> 12/22/24 1113 DD/ 1037 TD/TT: 12/22/24 1051 Business Technology Analyst: Procedure Note Donotuseinterpreter, Image - 12/22/[address] [place] [address] [address] Scan Report Signed Patient: Danna Taylor#: [id number] : 1990Acct:[id number] Age/Sex: 34 / FADM Date: 12/22/24 Loc: HO.ED Attending Dr: Ordering Physician: Urszula Garcia Date of Service: 12/22/24 Procedure(s): CT cervical spine wo IV con Accession Number(s): [id number] cc: Genevieve Gtz MD; Urszula Garcia Report Number: [id number]: Total DLP = 508.00 mGy-cm Reason for Exam: fall neck pain +HS EXAMINATION: CT CERVICAL SPINE WITHOUT CONTRAST CLINICAL INFORMATION: Neck pain, head trauma COMPARISON: August 27, 2024 TECHNIQUE: Axial imaging was performed from the base of the skull through T2 without IV contrast. Coronal and sagittal reformatted images were generated from the original axial data set. ALARA: The examination used one or more of the following radiation dose reduction techniques: Automated exposure control, iterative reconstruction, and/or adjustment of mA and/or KV. FINDINGS: There is mild reversal cervical lordosis. 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 There is no prevertebral soft tissue edema. Soft tissues are unremarkable. CT/CT cervical spine wo IV con IMPRESSION: There is mild reversal of cervical lordosis. This can be related to positioning, muscle spasm, or posterior soft tissue injury. No acute abnormality. Electronically signed by: Juan Alberto Guevara MD 12/22/2024 11:13 AM EDT RP Dictated By: Juan Alberto Guevara MD Signed By: <Electronically signed by Juan Alberto Guevara MD in OV> 12/22/24 1113 DD/ 1037 TD/TT: 12/22/24 1051 Business Technology Analyst: [facility] External Provider IMG CT PROCEDURES Edited Result - Final * CT Head w/o Contrast (12/22/2024 10:37 AM EDT) Only the most recent of2 resultswithin the time period is included. Anatomical Region Laterality Modality Head, Neck Computed Tomogra phy 12/22/2024 10:3 7 AM EDT Narrative 12/22/2024 11:08 AM EDT [place] [address] CT Scan Report Signed Patient: Shereen Taylor MR#: [id number] : 1990 Acct:[id number] Age/Sex: 34 / F ADM Date: 12/22/24 Loc: HO.ED Attending Dr: Ordering Physician: Urszula Garcia Date of Service: 12/22/24 Procedure(s): CT head/brain wo IV con Accession Number(s): [id number] cc: Genevieve Gtz MD; Urszula Garcia Report Number: [id number]: Total DLP = 706.00 mGy-cm Reason for Exam: fall +HS EXAMINATION: CT HEAD WITHOUT CONTRAST CLINICAL INFORMATION: Fall with head trauma COMPARISON: None available. TECHNIQUE: Contiguous axial imaging was performed from the skull base to vertex without intravenous administration of contrast. This CT examination was performed using dose optimization techniques as appropriate, variously including the following: *Automated exposure control *Adjustment of mA and/or kV according to patient size (this includes techniques or standardized protocols for targeted exams where dose is matched to indication/reason for exam; i.e. extremities or head) *Use of iterative reconstruction technique FINDINGS: There is no acute ischemic change. There is no intracranial hemorrhage. There is no mass-effect or midline shift. Basal cisterns and ventricles are within normal limits for age/cerebral volume. The right globe is small and distorted with calcification on the posterior wall and hypodensity throughout the lens. There is also thickening of the posterior left globe extending internally 5 mm and 16 mm superior to inferior. There is mucosal thickening in the right maxillary sinus There are no bony abnormalities. CT/CT head/brain wo IV con IMPRESSION: There is an area of thickening in the left posterior retina measuring 5 x 16 mm. Recommend ophthalmic follow-up. 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 Chronic right maxillary sinus mucosal thickening. No acute intracranial abnormality. Electronically signed by: Juan Alberto Guevara MD 12/22/2024 11:05 AM EDT RP Dictated By: Juan Alberto Guevara MD Signed By: <Electronically signed by Juan Alberto Guevara MD in OV> 12/22/24 1105 DD/ 1037 TD/TT: 12/22/24 1051 Business Technology Analyst: Procedure Note Donotuseinterpreter, Image - 12/22/[address] [place] [address] [address] Scan Report Signed Patient: Danna Taylor#: [id number] : 1990Acct:[id number] Age/Sex: 34 / FADM Date: 12/22/24 Loc: HO.ED Attending Dr: Ordering Physician: Urszula Garcia Date of Service: 12/22/24 Procedure(s): CT head/brain wo IV con Accession Number(s): [id number] cc: Genevieve Gtz MD; Urszula Garcia Report Number: [id number]: Total DLP = 706.00 mGy-cm Reason for Exam: fall +HS EXAMINATION: CT HEAD WITHOUT CONTRAST CLINICAL INFORMATION: Fall with head trauma COMPARISON: None available. TECHNIQUE: Contiguous axial imaging was performed from the skull base to vertex without intravenous administration of contrast. This CT examination was performed using dose optimization techniques as appropriate, variously including the following: *Automated exposure control *Adjustment of mA and/or kV according to patient size (this includes techniques or standardized protocols for targeted exams where dose is matched to indication/reason for exam; i.e. extremities or head) *Use of iterative reconstruction technique FINDINGS: There is no acute ischemic change. There is no intracranial hemorrhage. There is no mass-effect or midline shift. Basal cisterns and ventricles are within normal limits for age/cerebral volume. The right globe is small and distorted with calcification on the posterior wall and hypodensity throughout the lens. There is also thickening of the posterior left globe extending internally 5 mm and 16 mm superior to inferior. There is mucosal thickening in the right maxillary sinus There are no bony abnormalities. CT/CT head/brain wo IV con IMPRESSION: There is an area of thickening in the left posterior retina measuring 5 x 16 mm. Recommend ophthalmic follow-up. 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 Chronic right maxillary sinus mucosal thickening. No acute intracranial abnormality. Electronically signed by: Juan Alberto Guevara MD 12/22/2024 11:05 AM EDT Dictated By: Juan Alberto Guevara MD Signed By: <Electronically signed by Juan Alberto Guevara MD in OV> 12/22/24 1105 DD/ 1037 TD/TT: 12/22/24 1051 Business Technology Analyst: [facility] External Provider IMG CT PROCEDURES Edited Result - Final * XR Foot 3+ Views Left (12/22/2024 9:35 AM EDT) Anatomical Region Laterality Modality Lower Extremities, Foot Left Radiogra phic Imaging 12/22/2024 9:35 AM EDT Narrative 12/22/2024 10:00 AM EDT [address] [address] XRay Report Signed Patient: Shereen Taylor MR#: [id number] : 1990 Acct:[id number] Age/Sex: 34 / F ADM Date: 12/22/24 Loc: HO.ED Attending Dr: Ordering Physician: Urszula Garcia Date of Service: 12/22/24 Procedure(s): XR foot LT min 3V Accession Number(s): [id number] cc: Genevieve Gtz MD; Urszula Garcia Reason [...] in OV> 12/22/2457 DD/ 4 TD/TT: 12/22/24939 Business Technology Analyst: CRISTI Procedure Note Donotuseinterpreter, Image - 12/22/[address] [address] XRay Report Signed Patient: Danna Taylor#: [id number] : 1990Acct:[id number] Age/Sex: 34 / FADM Date: 12/22/24 Loc: HO.ED Attending Dr: Ordering Physician: Urszula Garcia Date of Service: 12/22/24 Procedure(s): XR foot LT min 3V Accession Number(s): [id number] cc: Genevieve Gtz MD; Urszula Garcia Reason [...] in OV> 12/22/2457 DD/ 4 TD/TT: 12/22/24939 Business Technology Analyst: CRISTI [facility] External Provider IMG XR PROCEDURES Edited Result - Final * Hold Red (12/22/2024 9:22 AM EDT) Hold Red See Note [facility] Comment:Specimen held untest ed for 24 hours; Call to requestChemistry testing. 12/22/2024 9:22 AM EDT 12/22/2024 9:49 AM EDT us Generic External Data Provider LAB BLOOD ORDERAB LES Final Result Performing Organization Address City/State/[facility] Co de Phone Number [facility] [address] [place] [phone] * CT Chest w/o Contrast (12/21/2024 3:02 PM EDT) Anatomical Region Laterality Modality Body, Chest Computed Tomogra phy 12/21/2024 3:02 PM EDT Narrative 12/21/2024 3:04 PM EDT [address] [address] [address] Scan Report Signed Patient: Shereen Taylor MR#: [id number] : 1990 Acct:[id number] Age/Sex: 34 / F ADM Date: 12/21/24 Loc: HO.ED Attending Dr: Ordering Physician: Bonilla Villareal MD Date of Service: 12/21/24 Procedure(s): CT chest wo IV con Accession Number(s): [id number] cc: Bonilla Villareal MD; Genevieve Gtz MD Report Number: [id number]: Total DLP = 0.00 mGy-cm Reason for [...] Pimentel MD in OV> 12/21/24 1503 DD/ 150 TD/TT: 12/21/24 150 Business Technology Analyst: Procedure Note Donotuseinterpreter, Image - 12/21/[address] [place] [address] [address] Scan Report Signed Patient: Danna Taylor#: [id number] : 1990Acct:[id number] Age/Sex: 34 / FADM Date: 12/21/24 Loc: HO.ED Attending Dr: Ordering Physician: Bonilla Villareal MD Date of Service: 12/21/24 Procedure(s): CT chest wo IV con Accession Number(s): [id number] cc: Bonilla Villareal MD; Genevieve Gtz MD Report Number: [id number]: Total DLP = 0.00 mGy-cm Reason for [...] Pimentel MD in OV> 12/21/24 1503 DD/ 150 TD/TT: 12/21/241501 Business Technology Analyst: [facility] External Provider IMG CT PROCEDURES Edited Result - Final * CT Abdomen Pelvis w/o Contrast (12/21/2024 3:02 PM EDT) Anatomical Region Laterality Modality Body, Pelvis, Abdomen Computed T omography 12/21/2024 3:02 PM EDT Narrative 12/21/2024 3:04 PM EDT [address] [address] [address] Scan Report Signed Patient: Shereen Taylor MR#: [id number] : 1990 Acct:[id number] Age/Sex: 34 / F ADM Date: 12/21/24 Loc: HO.ED Attending Dr: Ordering Physician: Bonilla Villareal MD Date of Service: 12/21/24 Procedure(s): CT abdomen pelvis wo IV con Accession Number(s): [id number] cc: Bonilla Villareal MD; Genevieve Gtz MD Report Number: [id number]: Total DLP = 2186.00 mGy-cm Reason for [...] 12/21/24 1503 DD/ 1502 TD/TT: 12/21/24 1502 Business Technology Analyst: Procedure Note Donotuseinterpreter, Image - 12/21/[address] [address] [address] Scan Report Signed Patient: Christian TaylorR#: [id number] : 1990Acct:[id number] Age/Sex: 34 / FADM Date: 12/21/24 Loc: HO.ED Attending Dr: Ordering Physician: Bonilla Villareal MD Date of Service: 12/21/24 Procedure(s): CT abdomen pelvis wo IV con Accession Number(s): [id number] cc: Bonilla Villareal MD; Genevieve Gtz MD Report Number: [id number]: Total DLP = 2186.00 mGy-cm Reason for [...] 12/21/24 1503 DD/ 1502 TD/TT: 12/21/24 1502 Business Technology Analyst: [facility] External Provider IMG CT PROCEDURES Edited Result - Final * TSH (12/21/2024 12:49 PM EDT) Thyroid Stimulating Hormone 1.18 0.32 - 4.0 uIU/mL [facility] Comment:TSH 3rd Generation ( [facility]) 12/21/2024 12:4 9 PM EDT 12/21/2024 12:51 PM EDT Generic External Data Provider LAB BLOOD ORDERAB LES Final Result [facility] [address] [place] [phone] * (ABNORMAL) Comprehensive Metabolic Panel (12/21/2024 12:49 PM EDT) Only the most recent of3 resultswithin the time period is included. Sodium 137 135 - 145 mmol/L [facility] Potassium 6.2(HH) 3.3 - 5.1 mmol/L [facility] Comment:Critical value for t est(s): K Results called to and readback by: BRANDT Person calling: KUSFDate: [id number]:KUSF Chloride 102 96 - 108 mmol/L [facility] Carbon Dioxide 19(L) 22 - 29 mmol/L [facility] Anion Gap 22(H) 12 - 20 [facility] Urea Nitrogen (BUN) 85(H) 9 - 16 mg/dL [facility] Creatinine, Serum 11.49(HH) 0.5 - 1.4 mg/dL [facility] Comment:Critical value for t est(s): MARIE Results called to andread back by: KIRT Person calling: [employer] Date:12-21-24 Time:1527 Creatinine Clr Calc Pharmacy 7.7 [facility] Comment:Provided height and weight: 165.1 cm,97.1 kg.eGFR (calculated from the MDRD study equation) and eCrCl(calculated from the Cockcroft-Gault equation) are based ondifferent parameters and may not yield comparable results.If eCrCl result is absurd, please check patient'sheight/weight. Estimated Glomerular Filt Rate 4 [facility] Comment:Chronic Kidney Disea se: Estimated GFR < 60 mL/min/1.23s3Shcfye Kidney Disease: Estimated GFR < 15 mL/min/1.73m2 Glucose 76 60 - 115 mg/dL [facility] Calcium 8.1(L) 8.4 - 10.2 mg/dL [facility] Bilirubin, Total 0.8 0.0 - 1.0 mg/dL [facility] Aspartate Amino Transferase 30 5 - 31 U/L [facility] Alanine Aminotransferase 17 0 - 31 U/L [facility] Total Protein 7.6 6.5 - 8.0 g/dL [facility] Albumin Level 4.0 3.5 - 5.0 g/dL [facility] Alkaline Phosphatase 146(H) 39 - 117 U/L [facility] 12/21/2024 12:4 9 PM EDT 12/21/2024 12:51 PM EDT Generic External Data Provider LAB BLOOD ORDERAB LES Final Result Performing Organization Address [facility] Co de Phone Number [facility] [address] [place] [phone] * Hold Green Gel (12/19/2024 1:42 PM EDT) Hold Green Gel See Note [facility] Comment:Specimen held untest ed for 24 hours; Call to requestChemistry testing. 12/19/2024 1:42 PM EDT 12/19/2024 1:49 PM EDT Generic External Data Provider HISTORICAL/NON OR DERABLE LABS Final Result Performing Organization Address [facility] Co de Phone Number [facility] [address] [place] [phone] * Blood Culture (Second) (12/19/2024 1:42 PM EDT) Blood Venous blood specimen / Unknown 12/19/2024 1:42 PM EDT 12/19/2024 1:47 PM EDT Comment:Blood Narrative [facility] - 12/24/2024 3:47 PM EDT Blood Culture (Second) No growth after 5 days. Specimen Source: Blood us Generic External Data Provider LAB MICROBIOLOGY - GENERAL ORDERABLES Final Result Performing Organization Address [facility] Co de Phone Number [facility] [address] [place] [phone] * Blood Culture (First) (12/19/2024 1:33 PM EDT) Blood Venous blood specimen / Unknown 12/19/2024 1:33 PM EDT 12/19/2024 1:36 PM EDT Comment:Blood Narrative [facility] - 12/24/2024 3:36 PM EDT Blood Culture (First) No growth after 5 days. Specimen Source: Blood Generic External Data Provider LAB MICROBIOLOGY - GENERAL ORDERABLES Final Result Performing Organization Address City/[facility] Co de Phone Number [facility] [address] [place] [phone] * Partial Thromboplastin Time, Activated (APTT) (12/19/2024 1:33 PM EDT) Partial Thromboplastin Time 34.0 26.7 - 34.1 SEC [facility] 12/19/2024 1:33 PM EDT 12/19/2024 1:36 PM EDT Generic External Data Provider LAB BLOOD ORDERAB LES Final Result Performing Organization Address [facility] de Phone Number [facility] [address] [place] [phone] * (ABNORMAL) Sed Rate by Modified Axelren (12/19/2024 1:33 PM EDT) Only the most recent of2 resultswithin the time period is included. Erythrocyte Sedimentation Rate 54(H) 0 - 20 MM/HR [facility] Comment:Patients with polycy themia and many hemoglobin abnormalitiesmay have depressed sed rates whereas patients with anemiamay have elevated sed rates. 12/19/2024 1:33 PM EDT 12/19/2024 1:36 PM EDT Generic External Data Provider LAB BLOOD ORDERAB LES Final Result Performing Organization Address [facility] Co de Phone Number [facility] [address] [place] [phone] * (ABNORMAL) C-reactive Protein (12/19/2024 1:33 PM EDT) C Reactive Protein 0.84(H) < or = 0.50 mg/dL [facility] 12/19/2024 1:33 PM EDT 12/19/2024 1:36 PM EDT us Generic External Data Provider LAB BLOOD ORDERAB LES Final Result Performing Organization Address [facility] Co de Phone Number [facility] [address] [place] [phone] * Lipase (12/19/2024 1:33 PM EDT) Only the most recent of2 resultswithin the time period is included. Lipase 37 8 - 78 U/L [facility] 12/19/2024 1:33 PM EDT 12/19/2024 1:36 PM EDT Generic External Data Provider LAB BLOOD ORDERAB LES Final Result Performing Organization Address [facility] Co de Phone Number [facility] [address] [place] [phone] * Lactic Acid (12/19/2024 1:33 PM EDT) Only the most recent of2 resultswithin the time period is included. Lactic Acid 1.9 0.5 - 2.0 mmol/L [facility] 12/19/2024 1:33 PM EDT 12/19/2024 1:36 PM EDT Generic External Data Provider LAB BLOOD ORDERAB LES Final Result Performing Organization Address [facility] Co de Phone Number [facility] [address] [place] [phone] * MR Foot w and w/o Contrast Left (12/11/2024 12:21 PM EDT) Anatomical Region Laterality Modality Lower Extremities, Foot Left Magnetic Resonance 12/11/2024 12:2 1 PM EDT Narrative 12/11/2024 2:14 PM EDT [place] [address] Magnetic Resonance Report Signed Patient: Shereen Taylor MR#: [id number] : 1990 Acct:[id number] Age/Sex: 34 / F ADM Date: 12/10/24 Loc: HO.S3 361-[address]: Ellen Frankel MD Ordering Physician: Lele Allan MD Date of Service: 12/11/24 Procedure(s): MR foot LT wo/w con Accession Number(s): [id number] cc: Lele Allan MD; Genevieve Gtz MD [...] Babak Cloud MD 12/11/2024 02:11 PM EDT RP Dictated By: Babak Cloud MD Signed By: <Electronically signed by Babak Cloud MD in OV> 12/11/24 1411 DD/ 1221 TD/TT: 12/11/24 1310 Business Technology Analyst: CRISTI Procedure Note Donotuseinterpreter, Image - 12/11/2024 [place] [address] Magnetic Resonance Report Signed Patient: Danna Taylor#: [id number] : 1990Acct:[id number] Age/Sex: 34 / FADM Date: 12/10/24 Loc: HO.S3 361-[address]: Ellen Frankel MD Ordering Physician: Lele Allan MD Date of Service: 12/11/24 Procedure(s): MR foot LT wo/w con Accession Number(s): [id number] cc: Lele Allan MD; Genevieve Gtz MD [...] 12/11/24 1411 DD/ 1221 TD/TT: 12/11/24 1310 Business Technology Analyst: CRISTI [facility] External Provider IMG MRI PROCEDURES Final Result * XR Foot 1-2 Views Left (12/09/2024 8:38 PM EDT) Anatomical Region Laterality Modality Lower Extremities, Foot Left Radiogra phic Imaging 12/09/2024 8:38 PM EDT Narrative 12/09/2024 8:42 PM EDT [address] [address] XRay Report Signed Patient: Shereen Taylor MR#: [id number] : 1990 Acct:[id number] Age/Sex: 34 / F ADM Date: 12/09/24 Loc: HO.ED Attending Dr: Ordering Physician: Generic ED Physician Date of Service: 12/09/24 Procedure(s): XR foot LT 2V Accession Number(s): [id number] cc: Generic ED Physician; Genevieve Gtz MD [...] in OV> 12/09/242039 DD/ 37 TD/TT: 12/09/242037 Business Technology Analyst: Procedure Note Donotuseinterpreter, Image - 12/09/[address] [address] XRay Report Signed Patient: Danna Taylor#: [id number] : 1990Acct:[id number] Age/Sex: 34 / FADM Date: 12/09/24 Loc: HO.ED Attending Dr: Ordering Physician: Generic ED Physician Date of Service: 12/09/24 Procedure(s): XR foot LT 2V Accession Number(s): [id number] cc: Generic ED Physician; Genevieve Gtz MD [...] in OV> 12/09/242039 DD/ 37 TD/TT: 12/09/242037 Business Technology Analyst: [facility] External Provider IMG XR PROCEDURES Final Result * Drug Toxicology Monitoring Base Panel, w/Confirmation, Oral Fluid (11/19/2024 12:00 AM EDT) Drug Tox Panel with Confirmation SEE NOTE [facility] Comment: Test Ordered Result Cutoff DRUG [...] Negative 5.0 ng/mLFor additional information, please refer tohttp://[email or web address]/faq/LZR951 (This linkis being provided for informational/ educational purposesonly.) This drug testing is for medical treatment only.Analysis was performed as non-forensic testing and theseresults should be used only by healthcare providers torender diagnosis or treatment, or to monitor progress ofmedical conditions. For assistance with interpreting thesedrug results, please contact a [employer] ToxicologySpecialist: [phone] ( ), M-F, 8am-6pmEST. These tests were developed and their analyticalperformance characteristics have beendetermined by [employer]. They have not been clearedor a pproved by the FDA. These assays have been validatedpursuant to the CLIA regulations and are used for clinicalpurposes. PERFO RMING SITE:[employer]/ADELINA QUEEN, [address] [place] [phone] Director Of Maintenance: KORIN TRUONG MD,PHD, CLIA: [id number] 11/19/2024 11/19/2024 Genevieve Casillas MD LAB BODY FLUIDS A ND STOOLS ORDERABLES Final Result Performing Organization Address [facility]/ZIP Co de Phone Number [facility] [address] [place] [phone] * Hepatitis C Antibody with Reflex to HCV, RNA, Quantitative, Real-Time PCR (03/07/2024 9:45 AM EST) Hepatitis C Antibody Nonreactive Nonreactive [facility] Comment:Antibodies to HCV no t detected; does not exclude early acuteHCV infection. Blood Venous blood specimen / Unknown 03/07/2024 9:45 AM EST 03/07/2024 11:34 AM EST Genevieve Casillas MD LAB BLOOD ORDERAB LES Final Result Performing Organization Address [facility] Co de Phone Number [facility] [address] [place] [phone] * HIV-1/2 Antigen and Antibodies, Fourth Generation, with Reflexes (03/07/2024 9:45 AM EST) HIV AB/AG Nonreactive Nonreactive [facility] Comment:HIV-1 p24 Ag and/or HIV-1/HIV-2 Ab not detected.A test result that is nonreactive does not exclude thepossibility of exposure to or infection with HIV-1 and/orHIV-2. Nonreactive results in this assay for individualswith prior exposure to HIV-1 and/or HIV-2 may be due toantigen and antibody levels that are below the limit ofdetection of this assay.The [employer] HIV Ag/Ab Combo assay result andsupplemental assay results should be interpreted inconjunction with the patient's clinical presentation,history and other laboratory results. If the results areinconsistent with clinical evidence, additional testing issuggested to confirm the result. Blood Venous blood specimen / Unknown 03/07/2024 9:45 AM EST 03/07/2024 11:34 AM EST Genevieve Casillas MD LAB BLOOD ORDERAB LES Final Result Performing Organization Address [facility] Co de Phone Number [facility] [address] [place] [address] [phone] * Hemoglobin A1c (03/07/2024 9:45 AM EST) Hemoglobin A1c 5.7 <6.0 % [facility] Comment:Hemoglobin A1C Refer ence Range Adults: 4.8 - 6.0 % Non diabetic: < 6.0 % Goal: < 7.0 %Additional Action Suggested: > 8.0 %Note: Hemoglobin A1c results are invalid for patients with abnormal amounts of HbF. Blood transfusions may impact the HbA1c concentration in the patient sample. Estimated Average Glucose 117 mg/dL [facility] Comment:eAG = Estimated ave rage glucose which is %A1C expressed asaverage glucose, using the formula of the C9R-XppjdboOwyojxz Glucose study (ADAG), Diabetes Care, Vol.31,#8,Sep. 2007 Blood Venous blood specimen / Unknown 03/07/2024 9:45 AM EST 03/07/2024 11:34 AM EST us Genevieve Casillas MD LAB BLOOD ORDERAB LES Final Result Performing Organization Address City/[facility] Co de Phone Number [facility] [address] [place] [address] [phone] * (ABNORMAL) Lipid Panel, Standard (03/07/2024 9:45 AM EST) Triglycerides 36 <150 mg/dL [facility] Comment:Desirable Triglyceri de: less than 150 mg/dLBorderline High Triglyceride 150-199 mg/dLHigh Triglyceride: 200-499 mg/dLVery High Triglyceride: greater than or equal to 5OO mg/dL Cholesterol 107 <200 mg/dL [facility] Comment:Desirable Cholestero l: less than 200 mg/dLBorderline High Cholesterol: 200-239 mg/dLHigh Cholesterol: greater than 239 mg/dL LDL Cholesterol Calculated 65 <100 mg/dL [facility] Comment:Desirable LDL: less than 100 mg/dLNear Optimal/Above Optimal LDL: 110- 129 mg/dLBorderline High LDL: 130-159 mg/dLHigh LDL: 160-189 mg/dLVery High LDL: greater than or equal to 190 mg/dL HDL Cholesterol 35(L) >40 mg/dL [facility] Comment:Desirable HDL: great er than 40 mg/dL Note: This HDL assay may give artificially low results in patients with liver disease. Blood Venous blood specimen / Unknown 03/07/2024 9:45 AM EST 03/07/2024 11:34 AM EST us Genevieve Casillas MD LAB BLOOD ORDERAB LES Final Result Performing Organization Address City/State/[facility] Co de Phone Number [facility] [address] [place] [address] [phone] from Last 3 Months or Most Recently Relevant to Health Maintenance Insurance [employer]ARE < 65 JOVON SOLOMON [id number] Care Teams Paper Cone Maker Relationship Specialty Start Date End Date Genevieve Gtz MD [address] [place] [phone] PCP - General Internal Medicine 10/12/22
--- OUTSIDE RECORDS SUMMARY | 2025-01-21 18:16 | XMS_ITS | Encounter Summary ---
Author Organization [employer] Address 75 [facility] 7t [place] [address] Care Team Providers Care Firearms Instructor Name Role Phone Carolina Hsu RETAIL ADVERTISING ACCOUNT EXECUTIVE Primary Care Provider Genevieve Wilson MD Primary Care Pro vider Reason for Visit * Reason Onset Date Comments Appointment Request 03/30/2022 Encounter Details Date Type Department Care Team ([facility] st Contact Info) Description 03/30/2022 Telephone [facility] MED[facility] [address] [place] [address] [phone] Carolina Hsu FNP Appointment Request Social History [...] EST TC to pt, NCNS for todays LOGISTICS TECHNICIAN Renewal appt. Pt stated she is currently admitted to [facility], she statedshe has fluid in her lungs and she's a mess. Wished patient well and told her I would forward this information to her PCP. Requested she call back to reschedule LOGISTICS TECHNICIAN appt when she's feeling better. * Telephone Encounter - Stephen Davison - 03/30/2022 10:41 AM EST documented in this encounter Plan of Treatment Upcoming Encounters Date Type Department Care Team (Late st Contact Info) Description 01/28/2025 10:15 AM EST Office Visit [facility] MEDICINE [address] [place] [address] Genevieve Gtz MD [address] [place] [address] 02/11/2025 2:45 PM EST Clinical Support [facility]S 505 [place], [place] [phone] Paola Thurston, KIRIT 505 [place], [place] [phone] documented as of this encounter Visit Diagnoses Not on filedocumented in this encounter Care Teams Firearms Instructor Relationship Specialty Start Date End Date Carolina Hsu FNP PCP - General Family Medicine 01/16/22 10/11/22 Genevieve Gtz MD [address] [place] [address] PCP - General Internal Medicine 10/12/22 documented as of this encounter
--- OUTSIDE RECORDS SUMMARY | 2025-01-21 18:16 | XMS_ITS | Encounter Summary ---
Author Organization [employer] Address [address] [place] [address] 7[place] [address] Care Team Providers Care Oracle Ascp Consultant Name Role Phone Genevieve Gtz MD Primary Care Pro vider Reason for Visit * Reason Onset Date Comments Med Refill 10/26/2022 Encounter Details Date Type Department Care Team ([facility] st Contact Info) Description 10/26/2022 Telephone [facility] MEDICINE 230 [place], [place] [phone] Genevieve Gtz MD [address] [place], [place] [phone] Med Refill Social History Tobacco Use Types [...] medication oxycodone 5 mg. Please send to [facility]/pharmacy #[id number] - [place] - [address] Cool documented in this encounter Plan of Treatment Upcoming Encounters Date Type Department Care Team (Late st Contact Info) Description 01/28/2025 10:15 AM EST Office Visit [facility]INE [address] [place] [address] Genevieve Gtz MD [address] [place] [address] 02/11/2025 2:45 PM EST Clinical Support [facility] 505 [place], [place] [phone] Paola Thurston, RN 505 [place], [place] [phone] documented as of this encounter Visit Diagnoses Not on filedocumented in this encounter Additional Health Concerns Assessment Noted Time PHQ-9 Depression Total Score: 0 10/13/19 2:37 PM EDT documented as of this encounter Care Teams Oracle Ascp Consultant Relationship Specialty Start Date End Date Genevieve Gtz MD [address] [place] [address] PCP - General Internal Medicine 10/12/22 documented as of this encounter
--- OUTSIDE RECORDS SUMMARY | 2025-01-21 18:16 | XMS_ITS | Clinical Summary ---
Author Organization [facility] Address [address] [place] [address] Phone Care Team Providers Care Locomotive Lubricating Systems Clerk Name Role Phone Genevieve Gtz MD [...] Encounters Date Type Department Care Team Description 01/15/2025 Home Care Visit [facility] [address] [place] [address] Emi Sommer, KIRIT SN OASIS TRANSFER 01/12/2025 3:30 PM EST [facility] [address] [place] [address] Angie Bhatt, PT TELEPHONE ENCOUNTER 01/12/2025 Episode Documentation Update [facility] [address] [place] [address] 01/10/2025 12:30 PM EST Home Care Visit [facility] [address] [place] [address] Emi Sommer, RN SN OASIS START OF CARE (SOC) 01/10/2025 Plan of Care Documentation [facility] [address] [place] [address] 12/22/2024 Orders Only [facility] [address] [place] [phone] Homehealth, Interface ProviderMD 12/22/2024 Home Care Visit [facility] [address] [place], [place] [phone] Angela Foster RN NON ADMIT HOME HEALTH VISIT 12/21/2024 Home Care Visit [facility] [address] [place], [place] [phone] Becca Saenz, KIRIT CASE COMMUNICATION 12/20/2024 Home Care Visit [facility] [address] [place], [place] [phone] Freida Mohan, KIRIT CASE COMMUNICATION 12/20/2024 Home Care Visit [facility] [address] [place], [place] [phone] Becca Saenz, KIRIT CASE COMMUNICATION 12/19/2024 Home Care Visit [facility] [address] [place] [address] Angela Foster RN CASE COMMUNICATION 12/15/2024 Orders Only [facility] [address] [place] [address] Homehealth, Kirill Lindsay MD 11/16/2024 Home Care Visit [facility] [address] [place] [address] Becca Saenz, KIRIT NON ADMIT HOME HEALTH VISIT 11/14/2024 Home Care Visit [facility] [address] [place] [address] Angela Foster RN CASE COMMUNICATION 11/10/2024 Home Care Visit [facility] [address] [place], [place] [phone] Angela Foster, RN TELEPHONE ENCOUNTER 11/09/2024 Home Care Visit [facility] [address] [place], [place] [phone] Becca Saenz, KIRIT CASE COMMUNICATION 11/04/2024 Orders Only [facility] [address] [place], [place] [phone] [facility] Interface ProviderMD from Last 3 Months Social [...] Mass Index - - Plan of Treatment Not on file Medical Devices Not on file Insurance [facility] ONE CARE MEDICARE REPLACEMENT CARE MEDICARE REPLACEMENT MEDICARE REPLACEMENT CARE MEDICARE REPLACEMENT [address] [address] [address] CARE MEDICARE REPLACEMENT [facility] CARE MEDICARE REPLACEMENT Care Teams Locomotive Lubricating Systems Clerk Relationship Specialty Start Date End Date Genevieve Gtz MD [address] [place] [phone] PCP - General Internal Medicine 11/06/24 Additional Source Comments The information contained in this document represents components of the legal health record. It is not the complete legal health record.[facility]
--- OUTSIDE RECORDS SUMMARY | 2025-01-21 18:16 | XMS_ITS | Encounter Summary ---
Author Organization [employer] Address 75 [facility] 7t [place] [address] Care Team Providers Care Purchasing Director Name Role Phone Genevieve Gtz MD Primary Care Pro vider Reason for Visit * Reason Onset Date Comments Med Refill 01/14/2024 Encounter Details Date Type Department Care Team ([facility] Contact Info) Description 01/14/2024 Telephone [facility] MEDICINE [address] [place] [address] Genevieve Gtz MD 230 [place], [place] [phone] Med Refill Social History Tobacco Use Types [...] any questions you can contact pt at [phone]. * Telephone Encounter - Noelle Rodrigues - 01/14/2024 11:29 AM EST TC from pt requesting medication refill. Medications needing refill : oxyCODONE (Roxicodone) 5 MG immediate release tablet To be sent to: [facility]/pharmacy #[id number] [place] [address] documented in this encounter Plan of Treatment Upcoming Encounters Date Type Department Care Team (Late st Contact Info) Description 01/28/2025 10:15 AM EST Office Visit [facility] MEDICINE [address] [place], [place] [phone] Genevieve Gtz MD 230 [place], [place] [phone] 02/11/2025 2:45 PM EST Clinical Support [facility] 505 [place], [place] [phone] Paola Thurston RN 505 [place] [address] documented as of this encounter Goals Goal [...] documented as of this encounter Care Teams Purchasing Director Relationship Specialty Start Date End Date Genevieve Gtz MD [address] [place] [address] PCP - General Internal Medicine 10/12/22 documented as of this encounter
--- OUTSIDE RECORDS SUMMARY | 2025-01-21 18:16 | XMS_ITS | Encounter Summary ---
Author Organization [employer] Address 75 [facility] 7t [place] [address] Care Team Providers Care Photograph Enlarger Name Role Phone Genevieve Gtz MD Primary Care Pro vider Reason for Visit * Reason Onset Date Comments Med Refill 12/19/2023 Encounter Details Date Type Department Care Team ([facility] Contact Info) Description 12/19/2023 Telephone [facility] MEDICINE [address] [place] [address] Genevieve Gtz MD [address] [place], [place] [phone] Med Refill Social History Tobacco Use Types [...] release tablet To be sent to: [facility]acy #[id number] [place] [address] - [address] [place] [address] documented in this encounter Plan of Treatment Upcoming Encounters Date Type Department Care Team (Late st Contact Info) Description 01/28/2025 10:15 AM EST Office Visit [facility] MEDICINE [address] [place] [address] Genevieve tGz MD 230 [place] [address] 02/11/2025 2:45 PM EST Clinical Support [facility] MED [facility] PEDS 505 [place] [address] Paola Thurston, KIRIT 505 [place] [address] documented as of this encounter Goals Goal [...] documented as of this encounter Care Teams Photograph Enlarger Relationship Specialty Start Date End Date Genevieve Gtz MD [address] [place] [address]195 PCP - General Internal Medicine 10/12/22 documented as of this encounter
--- OUTSIDE RECORDS SUMMARY | 2025-01-21 18:16 | XMS_ITS | Clinical Summary ---
Author Organization [facility] Address [address] [place] [address] Care Team Providers Care Core Cleaner Name Role Phone Unavailable Primary Care Provider [...] 0.79 S/CO ratio 01/10/2022 10:39 AM EST [facility] Hepatitis C Antibody Interpretation Nonreactive Nonreactive 01/10/2022 10:39 AM EST [facility] Blood specimen (specimen) (Plasma/Serum) 01/09/2022 8:34 AM EST 01/09/2022 9:21 AM EST us Jaziel B Post MD LAB BLOOD ORDERABLES Final Resu lt HOSPITAL LAB [facility] [address] [place] [address] * HIV 1/2 Ag/Ab CMIA Reflex to Confirmation (01/09/2022 8:34 AM EST) HIV 1/2 Ag/Ab CMIA Nonreactive Nonreactive 01/10/2022 10:39 AM EST [facility] Comment: Results show no evidence of infection [...] Final Resu lt HOSPITAL LAB [facility] [address] [place] [address] from Last 3 Months or Most Recently Relevant to Health Maintenance Insurance [facility] Member Subscriber Plan / Payer ( fective 2022-Present) Name:Shereen Taylor Relation to Subscriber:Self Name:Shereen Taylor Payer ID:Not on file Group ID:Not on file Type:Not on file Address: [address] [id number] MISC MGD MEDICARE OUT OF NETWORK Advance Directives * Full Code (Latest Code Status on File) Date Activated Date Inactivated Comments 01/06/2022 5:00 AM Question Answer Comments Decision Thoroughly Discussed with: Unable to Ilda musa
--- OUTSIDE RECORDS SUMMARY | 2025-01-21 18:16 | XMS_ITS | Encounter Summary ---
Author Organization [employer] Address [address] [place] [address] 7t [place] [address] Care Team Providers Care Property Claims Manager Name Role Phone Genevieve Gtz MD Primary Care Pro vider Reason for Visit * Reason Onset Date Comments Med Refill 11/27/2022 Encounter Details Date Type Department Care Team ([facility] st Contact Info) Description 11/27/2022 Telephone [facility]ICINE [address] [place], [place] [phone] Genevieve Gtz MD 230 [place], [place] [phone] Med Refill Social History Tobacco Use Types [...] oxycodone 5 mg. Please send to [facility]/pharmacy #[id number] - [place] - [address] Cool documented in this encounter Plan of Treatment Upcoming Encounters Date Type Department Care Team (Late st Contact Info) Description 01/28/2025 10:15 AM EST Office Visit [facility] [address] [place] [address] Genevieve Gtz MD [address] [place] [address] 02/11/2025 2:45 PM EST Clinical Support [facility] 505 [place], [place] [phone] Paola Thurston, RN 505 [place], [place] [phone] documented as of this encounter Visit Diagnoses Not on filedocumented in this encounter Additional Health Concerns Assessment Noted Time PHQ-9 Depression Total Score: 0 10/13/19 2:37 PM EDT documented as of this encounter Care Teams Property Claims Manager Relationship Specialty Start Date End Date Genevieve Gtz MD [address] [place] [address] PCP - General Internal Medicine 10/12/22 documented as of this encounter
--- OUTSIDE RECORDS SUMMARY | 2025-01-21 18:16 | XMS_ITS | Encounter Summary ---
Author Organization [employer] Address 75 [facility] 7t [place] [address] Care Team Providers Care Circular Clerk Name Role Phone Genevieve tGz MD Primary Care Pro vider Reason for Visit * Reason Onset Date Comments Med Refill 06/21/2023 Encounter Details Date Type Department Care Team ([facility] Contact Info) Description 06/21/2023 Telephone [facility] MEDICINE 230 [place], [place] [phone] Genevieve Gtz MD 230 [place], [place] [phone] Med Refill Social History Tobacco Use Types [...] immediate release tablet To be sent to: [facility]/pharmacy #[id number] [place] [address] - [address] [place] [address] documented in this encounter Plan of Treatment Upcoming Encounters Date Type Department Care Team (Late st Contact Info) Description 01/28/2025 10:15 AM EST Office Visit [facility] MEDICINE [address] [place] [address] Genevieve Gtz MD 230 [place] [address] 02/11/2025 2:45 PM EST Clinical Support [facility] MED [facility]S 505 [place] [address] Paola Thurston, KIRIT 505 [place] [address] documented as of this encounter Goals Goal [...] documented as of this encounter Care Teams Circular Clerk Relationship Specialty Start Date End Date Genevieve Gtz MD [address] [place] [address] PCP - General Internal Medicine 10/12/22 documented as of this encounter
--- OUTSIDE RECORDS SUMMARY | 2025-01-21 18:16 | XMS_ITS | Encounter Summary ---
Author Organization [employer] Address 75 [facility] 7t [place] [address] Care Team Providers Care Mold Maker Helper Name Role Phone Genevieve Gtz MD Primary Care Pro vider Reason for Visit * Reason Onset Date Comments Med Refill 01/08/2023 Encounter Details Date Type Department Care Team ([facility] Contact Info) Description 01/08/2023 Telephone [facility] MEDICINE 230 [place], [place] [phone] Genevieve Gtz MD 230 [place], [place] [phone] Med Refill Social History Tobacco Use Types [...] Description 01/28/2025 10:15 AM EST Office Visit [facility] MEDICINE [address] [place] [address] Genevieve Gtz MD 230 [place] [address] 02/11/2025 2:45 PM EST Clinical Support [facility] MED & PEDS 505 [place] [address] Paola Thurston, RN 505 [place] [address] documented as of this encounter Visit Diagnoses Not on filedocumented in this encounter Additional Health Concerns Assessment Noted Time PHQ-9 Depression Total Score: 0 10/13/19 2:37 PM EDT documented as of this encounter Care Teams Mold Maker Helper Relationship Specialty Start Date End Date Genevieve Gtz MD [address] [place] [address] PCP - General Internal Medicine 10/12/22 documented as of this encounter
--- OUTSIDE RECORDS SUMMARY | 2025-01-21 18:16 | XMS_ITS | Encounter Summary ---
Author Organization [employer] Address 75 [facility] 7t [place] [address] Care Team Providers Care Photographer'S Model Name Role Phone Genevieve Gtz MD Primary Care Pro vider Reason for Visit * Reason Onset Date Comments Med Refill 12/05/2023 Encounter Details Date Type Department Care Team ([facility] Contact Info) Description 12/05/2023 Telephone [facility] MEDICINE 230 [place] [address] Genevieve Gtz MD 230 [place], [place] [phone] Med Refill Social History Tobacco Use Types [...] release tablet [id number] [place] [address] - [address] [place] [address] documented in this encounter Plan of Treatment Upcoming Encounters Date Type Department Care Team (Late st Contact Info) Description 01/28/2025 10:15 AM EST Office Visit [facility] MEDICINE [address] [place] [address] Genevieve Gtz MD 230 [place] [address] 02/11/2025 2:45 PM EST Clinical Support [facility] MED [facility] PEDS 505 [place] [address] Paola Thurston, KIRIT 505 [place] [address] documented as of this encounter Goals Goal [...] documented as of this encounter Care Teams Photographer'S Model Relationship Specialty Start Date End Date Genevieve Gtz MD [address] [place] [address] PCP - General Internal Medicine 10/12/22 documented as of this encounter
--- OUTSIDE RECORDS SUMMARY | 2025-01-21 18:16 | XMS_ITS | Encounter Summary ---
Author Organization [employer] Address 75 [facility] 7t [place] [address] Care Team Providers Care Rerecording Mixer Name Role Phone Genevieve Gtz MD Primary Care Pro vider Reason for Visit * Reason Onset Date Comments FYI 08/08/2024 Encounter Details Date Type Department Care Team ([facility] Contact Info) Description 08/08/2024 Telephone [facility] MEDICINE 230 [place], [place] [phone] Genevieve Gtz MD 230 [place], [place] [phone] FYI Social History Tobacco Use Types Packs/Day [...] 11:13 AM EDT [facility] for wound care.Patient declined services, stating she manages her wound care independently and obtains her own supplies. Helen just wanted FYI to PCP documented in this encounter Plan of Treatment Upcoming Encounters Date Type Department Care Team (Late st Contact Info) Description 01/28/2025 10:15 AM EST Office Visit [facility] MEDICINE [address] [place] [address] Genevieve Gtz MD 230 [place] [address] 02/11/2025 2:45 PM EST Clinical Support [facility] 505 [place] [address] Paola Thurston, KIRIT 505 [place] [address] documented as of this encounter Goals Goal [...] documented as of this encounter Care Teams Rerecording Mixer Relationship Specialty Start Date End Date Genevieve Gtz MD [address] [place] [address] PCP - General Internal Medicine 10/12/22 documented as of this encounter
--- OUTSIDE RECORDS SUMMARY | 2025-01-21 18:16 | XMS_ITS | Encounter Summary ---
Author Organization [employer] Address [address] [facility] 7t [place] [address] Care Team Providers Care Automotive Glass Specialist Name Role Phone Genevieve Gtz MD Primary Care Pro vider Reason for Visit * Reason Onset Date Comments Med Refill 12/04/2024 Encounter Details Date Type Department Care Team ([facility] Contact Info) Description 12/04/2024 Telephone [facility] MEDICINE [address] [place] [address] Genevieve Gtz MD [address] [place], [place] [phone] Med Refill Social History Tobacco Use Types [...] tablet To be sent to: - [id number] documented in this encounter Plan of Treatment Upcoming Encounters Date Type Department Care Team (Late st Contact Info) Description 01/28/2025 10:15 AM EST Office Visit [facility] MEDICINE [address] [place] [address] Genevieve Gtz MD [address] [place] [address] 02/11/2025 2:45 PM EST Clinical Support [facility] MED & PEDS [address] [place], [place] [phone] Paola Thurston, KIRIT [address] [place], [place] [phone] documented as of this encounter Goals Goal Patient Goal Type Associated Problems Recent Progress Patient-Stated? Author Blood Pressure < 140/90 Blood Pressure 129/75(2024 9:08 AM EST) No Sampognaro, Jamie Hemoglobin A1c < 8 Result Component 5.7( 5 9:45 AM EST) No Jaime Chilel documented as of this encounter Visit Diagnoses Not on filedocumented in this encounter Additional Health Concerns Assessment Noted Time PHQ-9 Depression Total Score: 0 10/23/19 24 2:23 PM EDT documented as of this encounter Care Teams Automotive Glass Specialist Relationship Specialty Start Date End Date Genevieve Gtz MD [address] [place] [address] PCP - General Internal Medicine 10/12/22 documented as of this encounter
--- OUTSIDE RECORDS SUMMARY | 2025-01-21 18:16 | XMS_ITS | Encounter Summary ---
Author Organization [employer] Address [address] [facility] 7t [place] [address] Care Team Providers Care Lay Out Inspector Name Role Phone Genevieve Gtz MD Primary Care Pro vider Reason for Visit * Reason Comments Med Change Request Encounter Details Date Type Department Care Team ([facility] st Contact Info) Description 03/15/2023 Refill [facility] MED & PEDS [address] [place], [place] [phone] Genevieve Gtz MD [address] [place], [place] [phone] Benign essential hypertension Social History Tobacco Use [...] Description 01/28/2025 10:15 AM EST Office Visit [facility] MEDICINE [address] [place] [address] Genevieve Gtz MD [address] [place] [phone] 02/11/2025 2:45 PM EST Clinical Support [facility] PEDS [address] [place] [address] Paola Thurston, RN 505 [place] [address] documented as of this encounter Visit Diagnoses Diagnosis Benign essential hypertension Essential hypertension, benign documented in this encounter Additional Health Concerns Assessment Noted Time PHQ-9 Depression Total Score: 0 10/13/19 23 2:37 PM EDT documented as of this encounter Care Teams Lay Out Inspector Relationship Specialty Start Date End Date Genevieve Gtz MD [address] [place] [address] PCP - General Internal Medicine 10/12/22 documented as of this encounter
--- OUTSIDE RECORDS SUMMARY | 2025-01-21 18:16 | XMS_ITS | Encounter Summary ---
Author Organization [employer] Address [address] [place] [address] 7t [place] [address] Care Team Providers Care Paver Installer Name Role Phone Carolina Hsu Primary Care Provider Genevieve Wilson MD Primary Care Pro vider Reason for Visit * Reason Onset Date Comments Med Refill 07/28/2022 Encounter Details Date Type Department Care Team ([facility] st Contact Info) Description 07/28/2022 Telephone [facility] MEDICINE [address] [place] [phone] Carolina Hsu FNP Med Refill Social History [...] Description 01/28/2025 10:15 AM EST Office Visit [facility] MEDICINE [address] [place] [address] Genevieve Gtz MD [address] [place], [place] [phone] 02/11/2025 2:45 PM EST Clinical Support [facility] MED [facility] PEDS [address] [place] [address] Paola Thurston, RN 505 [place] [address] documented as of this encounter Visit Diagnoses Diagnosis Acute on chronic heart failure, unspecified heart failure type (HCC)- Primary Benign essential hypertension Essential hypertension, benign documented in this encounter Care Teams Paver Installer Relationship Specialty Start Date End Date Carolina Hsu FNP PCP - General Family Medicine 01/16/22 10/11/22 Genevieve Gtz MD [address] [place] [address] PCP - General Internal Medicine 10/12/22 documented as of this encounter
--- OUTSIDE RECORDS SUMMARY | 2025-01-21 18:16 | XMS_ITS | Encounter Summary ---
Author Organization [email or web address] Address [address] [facility] 7t [place] [address] Care Team Providers Care Paper Coater Name Role Phone Genevieve Gtz MD Primary Care Pro vider Reason for Visit * Reason Onset Date Comments Med Refill 12/15/2024 Encounter Details Date Type Department Care Team ([facility] Contact Info) Description 12/15/2024 Telephone [facility] MEDICINE [address] [place] [address] Genevieve Gtz MD [address] [place], [place] [phone] Med Refill Social History Tobacco Use Types [...] release tablet To be sent to: [id number] [place] [address] - [address] [place] [address] documented in this encounter Plan of Treatment Upcoming Encounters Date Type Department Care Team (Late st Contact Info) Description 01/28/2025 10:15 AM EST Office Visit [facility] MEDICINE [address] [place] [address] Genevieve Gtz MD [address] [place] [address] 02/11/2025 2:45 PM EST Clinical Support [facility] CH[facility] MED & PEDS [address] [place] [address] Paola Thurston, KIRIT [address] [place] [address] documented as of this encounter Goals Goal [...] documented as of this encounter Care Teams Paper Coater Relationship Specialty Start Date End Date Genevieve Gtz MD [address] [place] [phone] PCP - General Internal Medicine 10/12/22 documented as of this encounter
--- NOTE | 2025-01-21 18:30 | PC.NURSE ---
Pt O2 titrated to 2L Oxymask, maintaining O2 sat >92%. No increased wob/sob noted, RR 16-18/min, HR 90s- nsr on manager cardiac. Pt taken to CT scan at this time.
[2025-01-21] MEDS: iohexoL 350 MG/ML 100 ML INFUS..BTL IV (18:47)
--- NOTE | 2025-01-21 18:50 | PC.NURSE ---
Pt back from CT scan. Per MD- pt only to receive 500ml LR. 500 ml LR infused per MAR at this time. Vitals cycling q15 to monitor BP- updated in worklist, sindyo infusing per MAR. Repeat oral temp 99.3. Call moore within reach, all needs met at this time.
[2025-01-21 19:10] LABS: Reflex Lactate? Lactic Acid Added
--- NOTE | 2025-01-21 19:11 | PC.NURSE ---
Addendum entered by Nely Calderon RN 01/22/25 01:30: wound is intact, clean, dry, no dehiscence or drainage noted. Stitches intact. Original Note: This staff writer assumed care of this Pt at 1900. Pt A&Ox3, reports 10/10 pain to left leg. 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
[2025-01-21 19:44] LABS: ~Lactic Acid-LAB USE ONLY 1.4 mmol/L (0.5-2.0)
[2025-01-21 21:23] LABS: INTERNATIONAL NORM RATIO 1.2 (0.9-1.1); Prothrombin Time 14.8 SEC (11.2-13.5)
[2025-01-21 21:26] LABS: Partial Thromboplastin Time 26.4 SEC (26.7-34.1)
[2025-01-21] MEDS: Heparin Sodium,Porcine/1/2NS 25,000 UNIT/250 ML IV.SOLN 11.93 UNIT IVCONT (22:04)
--- NOTE | 2025-01-21 22:20 | P.HPHOSP_ITS ---
History of Present Illness Date of Service: 01/21/25 Attending physician on admission: Lele Maria Chief Complaint: I feel weird Shereen Taylor is a 34 years old woman with past medical history significant for chronic foot ulcers, recent left BKA (Jan [address] Rajput) end-stage renal disease on hemodialysis, type 2 diabetes mellitus on insulin, hypertension, blindness, HFrEF (EF 51%) , chronic anemia, PAD and c. diff infection presents to the emergency department complaining of feeling weird. She mentioned that her blood pressure dropped during dialysis today. The dialysis was completed. She also complained chills and feeling cold. She also reports some shortness on breath but denied chest pain or cough. She did not report any acute gastrointestinal or genitourinary symptoms. In the ED, she was found to have fever, max 102.3 and sinus tachycardia. Blood pressure has been stable. Blood workup showed WBC count of 6.3, hemoglobin 7.9 and platelets 208. There is neutrophilia of 93.5. PH is 7.57 and pCO2 28. There are no significant electrolyte imbalances. Anion gap is 22, BUN is 37 and creatinine 6.39. Initial lactic acid was 6.9, most recent 1 is 1.4. Total bilirubin is 1.1, AST 44, ALT 21, alk-phos 235, troponin 33.9 and pro BNP 860077.7. Left femoral CT scan with IV contrast showed in the finding partially rim enhancing complex fluid collection along the medial side of the amputation stump measuring 4.2 by 1.5 x 2.4 cm concerning for abscess. Chest CTA showed pulmonary embolism in the right lower lobe segmental and subsegmental branches and small pericardial effusion. Abdominal pelvis CT scan showed mild diffuse urinary bladder wall thickening correlate for cystitis and no other acute findings. ED Tx: Vancomycin 2 g IV, Zosyn 4.5 g IV, LR 500 mL, Dilaudid 0.5 mg IV, Tylenol 1 g IV Review of Systems 2 Review of Systems: All 12 systems were reviewed and normal except as noted in HPI. COUNTS INCLUDE 234 BEDS AT THE [facility] Medical History (Updated 01/21/25 @ 23:06 by Lele Maria MD) Central pontine myelinolysis ESRD on hemodialysis End-stage renal disease (ESRD) Cardiomyopathy Cerebral microvascular disease Steroid-induced hyperglycemia Relapsing remitting multiple sclerosis Renal failure Multiple sclerosis Cerebral infarction Hyperkalemia ESRD on dialysis Hypoxia End stage renal disease on dialysis Chronic ulcer of right foot due to diabetes mellitus Chronic ulcer of left foot due to diabetes mellitus DM foot ulcer Hypotonic neurogenic bladder Diabetic polyneuropathy Hypertensive emergency Decompensated heart failure Renal failure Hypertension, uncontrolled Medical non-compliance Pericarditis Unspecified hypertension, condition or complication Metabolic acidosis Gastroparesis End stage chronic kidney disease Chronic kidney disease Anemia Plantar ulcer of left foot MDD (major depressive disorder) CKD (chronic kidney disease) Hypertension Vomiting Chronic pain Non-compliance with renal dialysis Diabetic foot ulcer associated with type 2 diabetes mellitus HFrEF (heart failure with reduced ejection fraction) delivery delivered Anemia in chronic kidney disease (CKD) CKD (chronic kidney disease) Abnormal finding on echocardiogram Elevated troponin Acute worsening of stage 3 chronic kidney disease Generalized edema Sepsis Cellulitis Pleural effusion Atypical chest pain Bone infection PAD (peripheral artery disease) Cellulitis and abscess of foot Osteomyelitis Asthma Depression with anxiety Diabetic retinopathy Blind right eye Diabetes Back pain Family History Mother Coronary artery disease Myocardial infarction Stroke Diabetes mellitus Father Myocardial infarction Surgical History (Updated 01/16/25 @ 00:01 by Kane Mueller) Below-knee amputation of left lower extremity (~01/05/25) Tubal ligation status Previous section Hx laparoscopic cholecystectomy Hx of surgical procedure (~09/11/23) 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 Social History Household Members: Family Household Members Other:: sister, brother, [id number] Housing: Apartment Housing Other:: Apartment, 1st floor Are you a primary home care giver to a significant other at home: No Do you presently have visiting nurse or other home services: Yes Alcohol intake: never Comment: patient refusing bed alarm Patient Tobacco Use Status: Never used Tobacco Smoked in Last 30 Days: No e-Cigarette/Vaping Use: Never Used Second Hand Smoke Exposure: No Use of substances other than those prescribed or required for medical reasons: No Advance Directives: Yes Advance Directives on File: Yes Advance Directives Date on File: 08/28/23 Do you have a plan to hurt others: No Plan Patient : No service: No Current occupational status: unemployed and disabled Gender identity: Female Meds Allergies Allergy/AdvReac Type Severity Reaction Status Date / Time gabapentin Allergy Severe Facial Verified 01/21/25 16:52 Swelling tramadol Allergy Severe Facial Verified 01/21/25 16:52 Swelling azithromycin (From Zithromax) Allergy Intermediate Hives Verified 01/21/25 16:52 morphine (MORPHINE) Allergy Intermediate Itching Verified 01/21/25 16:52 vancomycin AdvReac Intermediate Itching Verified 01/21/25 16:52 Active Medications: Current Medications Acetaminophen (Acetaminophen 325 Mg Tablet) 975 mg PO Q6H PRN PRN Reason: Pain, Mild 1-3,fever,headache Dextrose (Dextrose 50 % 25 Gm/50 Ml Syringe) 25 gm IVPUSH Q15M PRN; Protocol PRN Reason: per Hypoglycemia Standing Ord. Glucose (Glucose Gel 15 Gm Gel..Gram.) 15 gm PO Q15M PRN; Protocol PRN Reason: per Hypoglycemia Standing Ord. Heparin Sodium (Porcine) (Heparin Sodium,Porcine 5,000 Unit/Ml Vial) 3,400 unit 40 unit/kg (3400 unit) IVPUSH PROTOCOL BOLUS PRN; Protocol PRN Reason: 40 unit/kg - Heparin Protocol Heparin Sodium (Porcine) (Heparin Sodium,Porcine 5,000 Unit/Ml Vial) 6,800 unit 80 unit/kg (6800 unit) IVPUSH PROTOCOL BOLUS PRN; Protocol PRN Reason: 80 unit/kg - Heparin Protocol Heparin Sodium/Sodium Chloride (Heparin Sodium,Porcine/1/2ns) 25,000 unit in 250 mls @ 0 mls/hr IVCONT .Q0M [facility]; Protocol Last Admin: 01/21/25 22:04 Dose: 14 units/kg/hr, 11.93 mls/hr Sodium Chloride (Ns) 250 mls @ 999 mls/hr IV .Q16M STA Stop: 01/21/25 22:26 Piperacillin Sod/Tazobactam (Sod 2.25 gm/ Sodium Chloride) 50 mls @ 100 mls/hr IV Q8H [facility] Insulin Human Lispro (Insulin Lispro 100 Unit/Ml 3 Ml Vial) 0 unit SUBCUT QIDACHS [facility]; Protocol Melatonin (Melatonin 3 Mg Tablet) 6 mg PO BEDTIME PRN PRN Reason: Insomnia Pharmacy Consult (Consult Rx Vancomycin Dosing) 1 each MISCELLANE DAILY PRN PRN Reason: Consult order Sodium Chloride (0.9 % Sodium Chloride Flush 3 Ml Syringe) 3 ml IVFLUSH QSHIFT VASILE Home Medications ?Medication ?Instructions ?Recorded ?Confirmed ?Last Taken ?Type albuterol sulfate 90 mcg/actuation 2 puff inhalation Q 6H PRN wheezing 01/15/24 01/11/25 12/09/24 History aerosol inhaler (Ventolin HFA) nitroglycerin 0.4 mg sublingual 0.4 mg sublingual D IRECTED PRN 01/15/24 01/11/25 12/09/24 History tablet Angina calcium carbonate (Tums) 200 mg PO TIDWM PRN Acid Ref lux 07/03/24 01/11/25 12/09/24 History Physical Exam 2 Vital Signs and Narrative: Vital Signs: Last Vital Signs Temp 99.2 F 01/21/25 20:09 Pulse 94 01/21/25 20:09 Resp 14 01/21/25 20:09 BP 166/84 H 01/21/25 20:09 Pulse Ox 97 01/21/25 20:09 O2 Del Method Nasal Cannula 01/21/25 20:09 O2 Flow Rate 2 01/21/25 20:09 Oxygen Flow Rate 5 01/21/25 16:47 BMI result Body Mass Index 34.4 General: Alert, oriented, in acute distress due to pain. Cooperative. Febrile. HEENT: Head normocephalic, atraumatic. PER, EOMI. Sclerae anicteric, conjunctiva clear. Mucous membranes dry Neck: Supple. Heart: RRR, no murmurs, rubs or gallops. Lungs: Clear to auscultation bilaterally. No wheezes, rales, or rhonchi. Normal respiratory effort. Abdomen: Soft, non tenderness, nondistended, normoactive bowel sounds. No hepatosplenomegaly, masses or masses. Extremities: Left BKA -stitches in place, stump looks swollen and erythematous, increased warmth, no discharge is noted Musculoskeletal: Full range of motion. No joint swelling, deformity, or tenderness. Normal muscle tone and strength. Skin: Warm/Dry. No pallor. No jaundice. Neurologic: Alert & oriented x4. Moving all extremities spontaneously. Normal speech. Psychological: Depressed mood and affect. Thought process coherent. Results Labs 01/21/25 17:06 01/21/25 17:06 Labs: Laboratory Results - last 24 hr 01/21/25 01/21/25 01/21/25 17:06 17:10 17:13 MCV 88.9 MCH 30.3 MCHC 34.1 RDW 14.5 Plt Count 208 MPV 10.7 Immature Gran % (Auto) 0.8 H Neut % (Auto) 93.5 H Lymph % (Auto) 3.2 L [place] % (Auto) 1.1 L Eos % (Auto) 1.1 Baso % (Auto) 0.3 Lymph # (Auto) 0.2 L [place] # (Auto) 0.1 Eos # (Auto) 0.1 Baso # (Auto) 0.0 Abs Immat Gran (auto) 0.05 H Absolute Neuts (auto) 5.9 Absolute Nucleated RBC 0.000 Nucleated RBC % (auto) 0.0 Smear Tech's Comments VERIFIED Hold Purple Top SEE NOTE PT 14.8 H INR 1.2 H APTT 26.4 L D Hold Blue Top SEE NOTE VBG pH 7.57 H VBG pCO2 28 VBG pO2 90 VBG HCO3 26 VBG O2 Saturation 98.0 VBG Base Excess 5.1 Anion Gap 22 H Estim Creat Clear Calc 12.2 Estimated GFR 7 Random Glucose 74 Lactic Acid 6.5 H* Lactic Acid F/U @ 2Hr Calcium 8.9 Magnesium 2.0 Total Bilirubin 1.1 H AST 44 H ALT 21 Alkaline Phosphatase 235 H Troponin I High Sens 33.9 H D NT-Pro-B Natriuret Pep 201435.7 H Total Protein 7.7 Albumin 4.1 Influenza Type A (PCR) NEGATIVE Influenza Type B (PCR) NEGATIVE RSV RNA Qual (PCR) NEGATIVE SARS-CoV-2 RNA (RT-PCR) NEGATIVE 01/21/25 19:26 MCV MCH MCHC RDW Plt Count MPV Immature Gran % (Auto) Neut % (Auto) Lymph % (Auto) [place] % (Auto) Eos % (Auto) Baso % (Auto) Lymph # (Auto) [place] # (Auto) Eos # (Auto) Baso # (Auto) Abs Immat Gran (auto) Absolute Neuts (auto) Absolute Nucleated RBC Nucleated RBC % (auto) Smear Tech's Comments Hold Purple Top PT INR APTT Hold Blue Top VBG pH VBG pCO2 VBG pO2 VBG HCO3 VBG O2 Saturation VBG Base Excess Anion Gap Estim Creat Clear Calc Estimated GFR Random Glucose Lactic Acid Lactic Acid F/U @ 2Hr 1.4 Calcium Magnesium Total Bilirubin AST ALT Alkaline Phosphatase Troponin I High Sens NT-Pro-B Natriuret Pep Total Protein Albumin Influenza Type A (PCR) Influenza Type B (PCR) RSV RNA Qual (PCR) SARS-CoV-2 RNA (RT-PCR) Assessment and Plan (1) Severe sepsis: Status: Acute (2) Amputation stump infection: Status: Acute Plan Shereen Taylor is a 34 y/o woman with a PMHx significant for chronic foot ulcers, recent left BKA (Jan [address] Rajput) and PAD who presents with: Severe sepsis secondary to recent left BKA/amputation stump cellulitis and abscess. IV fluids: Bolus exclusion criteria due to end-stage renal disease and CHF. Received 500 ml LR, will give extra 250 mL NS. Blood culture obtained heartburn we will follow results. Continue empiric IV antibiotic therapy with Zosyn and vancomycin. Lactic acid normalized. Per ED Dr. Collado was contacted. Acute pulmonary embolism RLL. Continue heparin IV infusion. Heparin protocol. Elevated troponin. Likely secondary to PE end-stage renal disease. Continue to monitor. Type 2 diabetes mellitus. BG checks before meals and bedtime. Insulin sliding scale. Diabetic diet. Hypertension, likely renovascular. Continue carvedilol and hydralazine. Chronic anemia. Stable. Continue to monitor. History of C. diff. no GI symptoms reported. ESRD. Last HD session was today and completed. Continue HD inpatient. Nephrology consult. Monitor electrolytes and renal function closely. Code status: Full DVT prophylaxis: Heparin IV infusion med rec pending Patient will need hospitalization for at least 2 midnights for severe sepsis treatment due to left BKA/stump cellulitis and abscess treatment with IV antibiotic therapy, gentle IV fluids and urgent evaluation by Surgical Service for possible drainage. This documentation was generated using dictation software; minor spreading or senior buyer planner errors may be present. Quality Stroke Does the patient have a stroke diagnosis?: No VTE Prior VTE?: No VTE Risk Level:: Medical - moderate - high VTE Device Contraindication: Treatment Not Indicated VTE Drug Contraindication: N/A - Med Ordered
--- NOTE | 2025-01-21 23:06 | PM.SEPBOLA4 ---
Sepsis Bolus Exclusion Sepsis Bolus Exclusion CHF/Renal Failure Date of Occurrence: 01/21/25 Time of Occurrence:: 17:06 This patient met severe sepsis criteria due to the following condition(s):: Lactate>=4mmol/L In my clinical judgement the administration of 30 ml/kg of crystalloid would be detrimental to this patient due to the patient's following conditions:: Stage III or IV Chronic Kidney Disease (GFR<30) and Concern for fluid overload Replace the 30 mls/kg with (Zero amount not acceptable and all fluids for severe sepsis must be given at GREATER than 125 mls/hr) *Note: One of the reynolds must be documented Crystalloids amount given in mls: (rate must be at least 150cc/hr): 750 At a rate of (must be > 125 cchr):: 999
[2025-01-21 23:10] LABS: Mean Corpuscular HGB Conc 34.0 g/dl (31.0-35.0); Mean Corpuscular Hemoglobin 31.0 pg (27.0-33.0); Mean Corpuscular Volume 91.2 fL (80.0-98.0); NRBC Abs Auto 0.000 X10*3/uL (0.0-0.012); NRBC Pct Auto 0.0 /100WBC (0.0-0.2); Platelet Count 121 X10*3/uL (160-400); Red Blood Count 2.16 X10*6/uL (4.20-5.50); White Blood Count 12.8 X10*3/uL (4.8-10.8)
--- NOTE | 2025-01-21 23:12 | PC.NURSE ---
2nd IV line placed, ultrasound guide by provider Claire Carrero.
[2025-01-21 23:18] LABS: Hematocrit 19.7 % (37.0-47.0); Hemoglobin 6.7 g/dl (12.0-16.0)
[2025-01-21 23:48] LABS: Mean Corpuscular HGB Conc 33.5 g/dl (31.0-35.0); Mean Corpuscular Hemoglobin 30.6 pg (27.0-33.0); Mean Corpuscular Volume 91.2 fL (80.0-98.0); NRBC Abs Auto 0.000 X10*3/uL (0.0-0.012); NRBC Pct Auto 0.0 /100WBC (0.0-0.2); Platelet Count 125 X10*3/uL (160-400); Red Blood Count 2.16 X10*6/uL (4.20-5.50); White Blood Count 13.8 X10*3/uL (4.8-10.8)
[2025-01-21 23:56] LABS: Hematocrit 19.7 % (37.0-47.0); Hemoglobin 6.6 g/dl (12.0-16.0)
[2025-01-22] VITALS (10 sets, daily range): BP systolic 149–190; BP diastolic 74–94; PULSE 76–94; RESP 17–18; TEMP 36.2–37.6; O2SAT 92–97; BMI 33.0
--- NOTE | 2025-01-22 00:31 | HO.NURTONUR ---
Pt came in from home with generalized pain x3 days. Pt is a dialysis patient (//Sun) received full tx today. Patient has underwent Left BKA with Dr. Rajput back on 01/05/2025. Here in ED Hr 140s, temp 101.8, O2 of 86-88% on RA, placed on 3L. BNP elevated. Chest CTA showed pulmonary embolism in the right lower lobe segmental and subsegmental branches and small pericardial effusion. Pt received Vancomycin 2 g IV, Zosyn 4.5 g IV, total of LR 750 mL, Dilaudid 0.5 mg IV, Tylenol 1 g IV, 1mg of Dilaudid with effectiveness. Currently Pt is on a heparin drip @ 14 units/kg/hr. 20G IV to left wrist and a new ultrasound guided 20G to R ineer upper arm. Pt A&Ox3, visually impaired, limited urine output per patient. Most recently Pt H&H low, plan for 1 unit of PRBC.
--- NOTE | 2025-01-22 05:27 | PC.NURSE ---
Pt has an order for urine sample. Pt has ESRD and is on HD. Pt stated she still makes urine. Bladder scan showed 231mL of urine. Pt refused to be straight cathed at this time. Pt stated, I will tell you when I started to feel pain in my bladder. I don't need the catheter now.
--- NOTE | 2025-01-22 06:05 | PC.NURSE ---
APTT due at 01/22/2025 4:00AM. The lab let this RN know that not enough blood was drawn for the test. APTT blood test drawn again at 6:05. The rate of heparin drip has not been changed due to this reason.
[2025-01-22 06:13] LABS: Hematocrit 22.9 % (37.0-47.0); Hemoglobin 7.7 g/dl (12.0-16.0); Imm Gran Abs Auto 0.04 X10*3/uL (0.00-0.03); Imm Gran Pct Auto 0.4 % (0.0-0.4); Lymphocytes Absolute Auto 0.2 X10*3/uL (1.2-4.9); MANUAL DIFF FLAG SCAN; Mean Corpuscular HGB Conc 33.6 g/dl (31.0-35.0); Mean Corpuscular Hemoglobin 30.4 pg (27.0-33.0); Mean Corpuscular Volume 90.5 fL (80.0-98.0); NRBC Abs Auto 0.000 X10*3/uL (0.0-0.012); NRBC Pct Auto 0.0 /100WBC (0.0-0.2); Platelet Count 118 X10*3/uL (160-400); Red Blood Count 2.53 X10*6/uL (4.20-5.50); SCAN SMEAR FLAG 1; White Blood Count 11.2 X10*3/uL (4.8-10.8)
[2025-01-22 06:19] LABS: INTERNATIONAL NORM RATIO 1.4 (0.9-1.1); Prothrombin Time 17.4 SEC (11.2-13.5)
[2025-01-22 06:21] LABS: PTT Heparin Drip 56.8 SEC (53-77.9)
[2025-01-22 06:59] LABS: Glucose, Whole Blood 66 mg/dL (60-115)
[2025-01-22 07:12] LABS: Anion Gap 19 (12-20); Blood Urea Nitrogen 41 mg/dL (9-16); Calcium 8.1 mg/dL (8.4-10.2); Carbon Dioxide 23 mmol/L (22-29); Chloride 98 mmol/L (96-108); Creatinine Clr Calc Pharmacy 10.7; Estimated Glomerular Filt Rate 6; Magnesium 2.0 mg/dL (1.6-2.6); Potassium 4.5 mmol/L (3.3-5.1); Sodium 135 mmol/L (135-145)
--- NOTE | 2025-01-22 07:25 | HO.PM.IMPN ---
Subjective Subjective Date of Service: 01/22/25 Interval History: Patient appearing uncomfortable resumed home meds Review of Systems Review of Systems: Yes all other systems are reviewed and are negative Physical Exam Vital Signs: Vital Signs: Last Vital Signs Temp 97.2 F 01/22/25 06:53 Pulse 94 01/22/25 06:53 Resp 18 01/22/25 06:53 BP 177/85 H 01/22/25 06:53 Pulse Ox 95 01/22/25 06:53 O2 Del Method Nasal Cannula 01/22/25 06:53 O2 Flow Rate 2 01/22/25 06:53 Oxygen Flow Rate 5 01/21/25 16:47 BMI result Body Mass Index 33.0 Const: General: no acute distress Nutritional Appearance: well nourished Orientation/consciousness: patient oriented x3 Resp: Effort & Inspection: normal respiratory effort, no audible wheezes and no cough Skin: Other: Warm, dry, no rash Neuro: General: patient oriented x3 Extrem: Other: Left BKA stump with normal postoperative changes. Skin flaps are clean without skin necrosis or significant erythema. Normal swelling noted at the lower flap without evidence of an abscess at this time. Sutures remain intact without discharge. Of note no compressive dressing is in place at this time. Objective Data Active Medications Acetaminophen (Acetaminophen 325 Mg Tablet) 975 mg PO Q6H PRN PRN Reason: Pain, Mild 1-3,fever,headache Dextrose (Dextrose 50 % 25 Gm/50 Ml Syringe) 25 gm IVPUSH Q15M PRN; Protocol PRN Reason: per Hypoglycemia Standing Ord. Glucose (Glucose Gel 15 Gm Gel..Gram.) 15 gm PO Q15M PRN; Protocol PRN Reason: per Hypoglycemia Standing Ord. Heparin Sodium (Porcine) (Heparin Sodium,Porcine 5,000 Unit/Ml Vial) 3,400 unit 40 unit/kg (3400 unit) IVPUSH PROTOCOL BOLUS PRN; Protocol PRN Reason: 40 unit/kg - Heparin Protocol Heparin Sodium (Porcine) (Heparin Sodium,Porcine 5,000 Unit/Ml Vial) 6,800 unit 80 unit/kg (6800 unit) IVPUSH PROTOCOL BOLUS PRN; Protocol PRN Reason: 80 unit/kg - Heparin Protocol Hydromorphone HCl (Hydromorphone Hcl 1 Mg/Ml Syringe) 1 mg IVPUSH Q3H PRN; Protocol PRN Reason: Pain, Severe (Pain Scale 7-10) Last Admin: 01/22/25 04:41 Dose: 1 mg Documented By: SHARON Heparin Sodium/Sodium Chloride (Heparin Sodium,Porcine/1/2ns) 25,000 unit in 250 mls @ 0 mls/hr IVCONT .Q0M [facility]; Protocol Last Titration: 01/22/25 06:27 Dose: 14 units/kg/hr, 11.93 mls/hr Documented By: SHARON Co-signed By: MARIZA Piperacillin Sod/Tazobactam (Sod 2.25 gm/ Sodium Chloride) 50 mls @ 100 mls/hr IV Q8H [facility] Last Infusion: 01/22/25 06:24 Dose: Infused Documented By: SHARON Vancomycin HCl 500 mg/ Sodium (Chloride) 110 mls @ 110 mls/hr IV ONCE ONE Stop: 01/23/25 19:29 Insulin Human Lispro (Insulin Lispro 100 Unit/Ml 3 Ml Vial) 0 unit SUBCUT QIDACHS [facility]; Protocol Last Admin: 01/22/25 07:25 Dose: Not Given Documented By: LAILA Non-Admin Reason: No Insulin Coverage Melatonin (Melatonin 3 Mg Tablet) 6 mg PO BEDTIME PRN PRN Reason: Insomnia Pharmacy Consult (Consult Rx Vancomycin Dosing) 1 each MISCELLANE DAILY PRN PRN Reason: Consult order Prochlorperazine Edisylate (Prochlorperazine Edisylate 10 Mg/2 Ml Vial) 5 mg IVPUSH Q6H PRN PRN Reason: Nausea and Vomiting Last Admin: 01/22/25 01:38 Dose: 5 mg Documented By: SHARON Sodium Chloride (0.9 % Sodium Chloride Flush 3 Ml Syringe) [facility] Last Admin: 01/22/25 00:27 Dose: Not Given Documented By: LEISA Non-Admin Reason: IV Running Labs 01/22/25 06:05 01/22/25 06:05 Labs: Laboratory Results - last 24 hr 01/21/25 01/21/25 01/21/25 17:06 17:10 17:13 MCV 88.9 MCH 30.3 MCHC 34.1 RDW 14.5 Plt Count 208 MPV 10.7 Immature Gran % (Auto) 0.8 H Neut % (Auto) 93.5 H Lymph % (Auto) 3.2 L [place] % (Auto) 1.1 L Eos % (Auto) 1.1 Baso % (Auto) 0.3 Lymph # (Auto) 0.2 L [place] # (Auto) 0.1 Eos # (Auto) 0.1 Baso # (Auto) 0.0 Abs Immat Gran (auto) 0.05 H Absolute Neuts (auto) 5.9 Absolute Nucleated RBC 0.000 Nucleated RBC % (auto) 0.0 Smear Tech's Comments VERIFIED Hold Purple Top SEE NOTE PT 14.8 H INR 1.2 H APTT 26.4 L D aPTT Heparin Protocol Hold Blue Top SEE NOTE VBG pH 7.57 H VBG pCO2 28 VBG pO2 90 VBG HCO3 26 VBG O2 Saturation 98.0 VBG Base Excess 5.1 Anion Gap 22 H Estim Creat Clear Calc 12.2 Estimated GFR 7 POC Glucose Random Glucose 74 Lactic Acid 6.5 H* Lactic Acid F/U @ 2Hr Calcium 8.9 Phosphorus Magnesium 2.0 Total Bilirubin 1.1 H AST 44 H ALT 21 Alkaline Phosphatase 235 H Troponin I High Sens 33.9 H D NT-Pro-B Natriuret Pep 688257.7 H Total Protein 7.7 Albumin 4.1 Influenza Type A (PCR) NEGATIVE Influenza Type B (PCR) NEGATIVE RSV RNA Qual (PCR) NEGATIVE SARS-CoV-2 RNA (RT-PCR) NEGATIVE Blood Type Antibody Screen Crossmatch 01/21/25 01/21/25 01/21/25 19:26 23:06 23:41 MCV 91.2 91.2 MCH 31.0 30.6 MCHC 34.0 33.5 RDW 14.6 14.7 Plt Count 121 L D 125 L MPV 10.1 10.4 Immature Gran % (Auto) Neut % (Auto) Lymph % (Auto) [place] % (Auto) Eos % (Auto) Baso % (Auto) Lymph # (Auto) [place] # (Auto) Eos # (Auto) Baso # (Auto) Abs Immat Gran (auto) Absolute Neuts (auto) Absolute Nucleated RBC 0.000 0.000 Nucleated RBC % (auto) 0.0 0.0 Smear Tech's Comments Hold Purple Top PT INR APTT aPTT Heparin Protocol Hold Blue Top VBG pH VBG pCO2 VBG pO2 VBG HCO3 VBG O2 Saturation VBG Base Excess Anion Gap Estim Creat Clear Calc Estimated GFR POC Glucose Random Glucose Lactic Acid Lactic Acid F/U @ 2Hr 1.4 Calcium Phosphorus Magnesium Total Bilirubin AST ALT Alkaline Phosphatase Troponin I High Sens NT-Pro-B Natriuret Pep Total Protein Albumin Influenza Type A (PCR) Influenza Type B (PCR) RSV RNA Qual (PCR) SARS-CoV-2 RNA (RT-PCR) Blood Type Antibody Screen Crossmatch 01/22/25 01/22/25 01/22/25 00:17 06:05 06:53 MCV 90.5 MCH 30.4 MCHC 33.6 RDW 14.6 Plt Count 118 L MPV 11.0 Immature Gran % (Auto) 0.4 Neut % (Auto) 92.5 H Lymph % (Auto) 2.1 L [place] % (Auto) 4.4 Eos % (Auto) 0.4 Baso % (Auto) 0.2 Lymph # (Auto) 0.2 L [place] # (Auto) 0.5 Eos # (Auto) 0.1 Baso # (Auto) 0.0 Abs Immat Gran (auto) 0.04 H Absolute Neuts (auto) 10.3 H Absolute Nucleated RBC 0.000 Nucleated RBC % (auto) 0.0 Smear Tech's Comments VERIFIED Hold Purple Top PT 17.4 H INR 1.4 H APTT aPTT Heparin Protocol 56.8 D Hold Blue Top VBG pH VBG pCO2 VBG pO2 VBG HCO3 VBG O2 Saturation VBG Base Excess Anion Gap 19 Estim Creat Clear Calc 10.7 Estimated GFR 6 POC Glucose 66 Random Glucose 78 Lactic Acid Lactic Acid F/U @ 2Hr Calcium 8.1 L D Phosphorus 4.9 H Magnesium 2.0 Total Bilirubin AST ALT Alkaline Phosphatase Troponin I High Sens NT-Pro-B Natriuret Pep Total Protein Albumin Influenza Type A (PCR) Influenza Type B (PCR) RSV RNA Qual (PCR) SARS-CoV-2 RNA (RT-PCR) Blood Type A Positive Antibody Screen NEGATIVE Crossmatch See Detail Assessment and Plan (1) Severe sepsis: Status: Acute Plan Shereen Taylor is a 34 y/o woman with a PMHx significant for chronic foot ulcers, recent left BKA (Jan [address] Rajput) and PAD who presents with: Severe sepsis secondary to recent left BKA/amputation stump cellulitis and abscess. Patient is on broad-spectrum antibiotics Zosyn and vancomycin Surgery consulted we will likely follow Acute pulmonary embolism RLL. Continue heparin IV infusion. Heparin protocol. Unclear if she will have a procedure hence we will keep her on heparin protocol else we will switch her to oral meds Elevated troponin. Likely type 2, secondary to PE end-stage renal disease. Continue to monitor. Type 2 diabetes mellitus. BG checks before meals and bedtime. Insulin sliding scale. Diabetic diet. Hypertension, likely renovascular. Continue carvedilol and hydralazine as she is significantly hypotensive despite sepsis Acute blood loss anemia likely secondary to chronic renal etiology, Status post 1 unit PRBC History of C. diff. no GI symptoms reported. ESRD. Last HD session was 01/21/2025 and completed. Continue HD inpatient. Rtane Nephrology consult. Monitor electrolytes and renal function closely. Code status: Full DVT prophylaxis: Heparin IV infusion Patient will need hospitalization for at least 2 midnights for severe sepsis treatment due to left BKA/stump cellulitis and abscess treatment with IV antibiotic therapy, gentle IV fluids and urgent evaluation by Surgical Service for possible drainage. This documentation was generated using dictation software; minor spreading or mechanical maintenance technician errors may be present. Quality Stroke Does the patient have a stroke diagnosis?: No VTE Prior VTE?: No VTE Risk Level:: Medical - moderate - high VTE Device Contraindication: Treatment Not Indicated VTE Drug Contraindication: N/A - Med Ordered
[2025-01-22 07:28] LABS: Glucose, Whole Blood 81 mg/dL (60-115)
--- NOTE | 2025-01-22 09:19 | MHC.CM.PN ---
IMM 01/22/25, Pt. lives with her sister, she was DC's on 01/16/25 s/p BKA, with [facility]. Update to be sent to them via [facility]. She goes to . HCP is her brother, Michael. DCP: home with services, family to transport. CM to follow for DC needs.
--- NOTE | 2025-01-22 09:45 | PM.CNGS ---
History of Present Illness Consult details Consult date: 01/22/25 Requesting physician: Lele Maria Narrative: 34-year-old female patient with a long history of type 2 diabetes mellitus, end-stage renal disease, blindness, peripheral vascular disease, status post left BKA on 01/05/2025 (Dr. Rajput) returning to the ED with fever up to 102.3 and sinus tachycardia. She presented to the emergency department and was found to have a WBC of 6.3 hemoglobin 7.9. Left femoral CT scan with IV contrast showed findings of a partially rim enhancing complex fluid collection along the medial side of the amputation stump measuring 4.2 x 1.5 x 2.4 cm concerning for abscess. A CTA of the chest showed pulmonary embolism in the right lower lobe segmental and subsegmental branches and small pericardial effusion. In the ED she was started on vancomycin and Zosyn. Surgical consultation was requested for further evaluation of the left BKA stump. Review of Systems Review of Systems: Yes all other systems are reviewed and are negative PMFSH Past Medical History Medical History (Updated 01/22/25 @ 00:05 by Dee Dee Sánchez DO) Central pontine myelinolysis ESRD on hemodialysis End-stage renal disease (ESRD) Cardiomyopathy Cerebral microvascular disease Steroid-induced hyperglycemia Relapsing remitting multiple sclerosis Renal failure Multiple sclerosis Cerebral infarction Hyperkalemia ESRD on dialysis Hypoxia End stage renal disease on dialysis Chronic ulcer of right foot due to diabetes mellitus Chronic ulcer of left foot due to diabetes mellitus DM foot ulcer Hypotonic neurogenic bladder Diabetic polyneuropathy Hypertensive emergency Decompensated heart failure Renal failure Hypertension, uncontrolled Medical non-compliance Pericarditis Unspecified hypertension, condition or complication Metabolic acidosis Gastroparesis End stage chronic kidney disease Chronic kidney disease Anemia Plantar ulcer of left foot MDD (major depressive disorder) CKD (chronic kidney disease) Hypertension Vomiting Chronic pain Non-compliance with renal dialysis Diabetic foot ulcer associated with type 2 diabetes mellitus HFrEF (heart failure with reduced ejection fraction) delivery delivered Anemia in chronic kidney disease (CKD) CKD (chronic kidney disease) Abnormal finding on echocardiogram Elevated troponin Acute worsening of stage 3 chronic kidney disease Generalized edema Sepsis Cellulitis Pleural effusion Atypical chest pain Bone infection PAD (peripheral artery disease) Cellulitis and abscess of foot Osteomyelitis Asthma Depression with anxiety Diabetic retinopathy Blind right eye Diabetes Back pain Family History Family History Mother Coronary artery disease Myocardial infarction Stroke Diabetes mellitus Father Myocardial infarction Surgical History Surgical History (Updated 01/16/25 @ 00:01 by Kane Mueller) Below-knee amputation of left lower extremity (~01/05/25) Tubal ligation status Previous section Hx laparoscopic cholecystectomy Hx of surgical procedure (~09/11/23) 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 Social History Social History Household Members: Family Household Members Other:: sister, brother, [id number] Housing: Apartment Housing Other:: Apartment, 1st floor Are you a primary personal care aid to a significant other at home: No Do you presently have visiting nurse or other home services: No Alcohol intake: never Comment: patient refusing bed alarm Patient Tobacco Use Status: Never used Tobacco e-Cigarette/Vaping Use: Never Used Second Hand Smoke Exposure: No Advance Directives Date on File: 08/28/23 service: No Current occupational status: unemployed and disabled Gender identity: Female Meds Allergies Allergy/AdvReac Type Severity Reaction Status Date / Time gabapentin Allergy Severe Facial Verified 01/21/25 16:52 Swelling tramadol Allergy Severe Facial Verified 01/21/25 16:52 Swelling azithromycin (From Zithromax) Allergy Intermediate Hives Verified 01/21/25 16:52 morphine (MORPHINE) Allergy Intermediate Itching Verified 01/21/25 16:52 vancomycin AdvReac Intermediate Itching Verified 01/21/25 16:52 Active Medications: Current Medications Acetaminophen (Acetaminophen 325 Mg Tablet) 975 mg PO Q6H PRN PRN Reason: Pain, Mild 1-3,fever,headache Baclofen (Baclofen 10 Mg Tablet) 10 mg PO QID [facility] Dextrose (Dextrose 50 % 25 Gm/50 Ml Syringe) 25 gm IVPUSH Q15M PRN; Protocol PRN Reason: per Hypoglycemia Standing Ord. Diphenhydramine HCl (Diphenhydramine Hcl 50 Mg/Ml Vial) 12.5 mg IVPUSH Q6H PRN PRN Reason: Itching Glucose (Glucose Gel 15 Gm Gel..Gram.) 15 gm PO Q15M PRN; Protocol PRN Reason: per Hypoglycemia Standing Ord. Heparin Sodium (Porcine) (Heparin Sodium,Porcine 5,000 Unit/Ml Vial) 3,400 unit 40 unit/kg (3400 unit) IVPUSH PROTOCOL BOLUS PRN; Protocol PRN Reason: 40 unit/kg - Heparin Protocol Heparin Sodium (Porcine) (Heparin Sodium,Porcine 5,000 Unit/Ml Vial) 6,800 unit 80 unit/kg (6800 unit) IVPUSH PROTOCOL BOLUS PRN; Protocol PRN Reason: 80 unit/kg - Heparin Protocol Hydromorphone HCl (Hydromorphone Hcl 1 Mg/Ml Syringe) 1 mg IVPUSH Q3H PRN; Protocol PRN Reason: Pain, Severe (Pain Scale 7-10) Last Admin: 01/22/25 08:08 Dose: 1 mg Heparin Sodium/Sodium Chloride (Heparin Sodium,Porcine/1/2ns) 25,000 unit in 250 mls @ 0 mls/hr IVCONT .Q0M [facility]; Protocol Last Titration: 01/22/25 06:27 Dose: 14 units/kg/hr, 11.93 mls/hr Piperacillin Sod/Tazobactam (Sod 2.25 gm/ Sodium Chloride) 50 mls @ 100 mls/hr IV Q8H [facility] Last Infusion: 01/22/25 06:24 Dose: Infused Vancomycin HCl 500 mg/ Sodium (Chloride) 110 mls @ 110 mls/hr IV ONCE ONE Stop: 01/23/25 19:29 Acetaminophen (Ofirmev) 1,000 mg in 100 mls @ 400 mls/hr IV Q6H [facility] Stop: 01/22/25 21:29 Insulin Human Lispro (Insulin Lispro 100 Unit/Ml 3 Ml Vial) 0 unit SUBCUT QIDACHS [facility]; Protocol Last Admin: 01/22/25 07:25 Dose: Not Given Lidocaine (Lidocaine 4 % Patch Adh..Patch) 2 patch TRANSDERMA DAILY [facility]; Protocol Melatonin (Melatonin 3 Mg Tablet) 6 mg PO BEDTIME PRN PRN Reason: Insomnia Oxycodone HCl (Oxycodone Hcl Er 10 Mg Tab.Er.12h) 20 mg PO BID [facility] Pharmacy Consult (Consult Rx Vancomycin Dosing) 1 each MISCELLANE DAILY PRN PRN Reason: Consult order Prochlorperazine Edisylate (Prochlorperazine Edisylate 10 Mg/2 Ml Vial) 5 mg IVPUSH Q6H PRN PRN Reason: Nausea and Vomiting Last Admin: 01/22/25 08:12 Dose: 5 mg Sodium Chloride (0.9 % Sodium Chloride Flush 3 Ml Syringe) 3 ml IVFLUSH QSHIFT [facility] Last Admin: 01/22/25 08:14 Dose: Not Given Home Medications ?Medication ?Instructions ?Recorded ?Confirmed ?Last Taken ?Type albuterol sulfate 90 mcg/actuation 2 puff inhalation Q6H PRN wheezing 01/15/24 01/11/25 12/09/24 History aerosol inhaler (Ventolin HFA) nitroglycerin 0.4 mg sublingual 0.4 mg sublingual DIRECTED PRN 01/15/24 01/11/25 12/09/24 History tablet Angina calcium carbonate (Tums) 200 mg PO TIDWM PRN Acid Reflux 07/03/24 01/11/25 12/09/24 History Physical Exam Vital Signs: Vital Signs: Last Vital Signs Temp 97.2 F 01/22/25 06:53 Pulse 94 01/22/25 06:53 Resp 18 01/22/25 06:53 BP 177/85 H 01/22/25 06:53 Pulse Ox 95 01/22/25 06:53 O2 Del Method Nasal Cannula 01/22/25 06:53 O2 Flow Rate 2 01/22/25 06:53 Oxygen Flow Rate 5 01/21/25 16:47 BMI result Body Mass Index 33.0 Const: General: no acute distress Nutritional Appearance: well nourished Orientation/consciousness: patient oriented x3 Resp: Effort & Inspection: normal respiratory effort, no audible wheezes and no cough Skin: Other: Warm, dry, no rash Neuro: General: patient oriented x3 Extrem: Other: Left BKA stump with normal postoperative changes. Skin flaps are clean without skin necrosis or significant erythema. Normal swelling noted at the lower flap without evidence of an abscess at this time. Sutures remain intact without discharge. Of note no compressive dressing is in place at this time. Results Labs 01/22/25 06:05 01/22/25 06:05 Labs: Abnormal lab results 01/21/25 01/21/25 01/21/25 Range/Units 17:06 17:13 23:06 WBC 12.8 H (4.8-10.8) X10*3/uL RBC 2.61 L 2.16 L (4.20-5.50) X10*6/uL Hgb 7.9 L 6.7 L* (12.0-16.0) g/dl Hct 23.2 L 19.7 L* (37.0-47.0) % Plt Count 121 L D (160-400) X10*3/uL Immature Gran % (Auto) 0.8 H (0.0-0.4) % Neut % (Auto) 93.5 H (45-73) % Lymph % (Auto) 3.2 L (20-40) % Lander % (Auto) 1.1 L (2-11) % Lymph # (Auto) 0.2 L (1.2-4.9) X10*3/uL Abs Immat Gran (auto) 0.05 H (0.00-0.03) X10*3/uL Absolute Neuts (auto) (2.0-8.3) x10*3/uL PT 14.8 H (11.2-13.5) SEC INR 1.2 H (0.9-1.1) APTT 26.4 L D (26.7-34.1) SEC VBG pH 7.57 H (7.32-7.43) Anion Gap 22 H (12-20) BUN 37 H (9-16) mg/dL Creatinine 6.39 H* (0.5-1.4) mg/dL Lactic Acid 6.5 H* (0.5-2.0) mmol/L Calcium (8.4-10.2) mg/dL Phosphorus (2.7-4.5) mg/dL Total Bilirubin 1.1 H (0.0-1.0) mg/dL AST 44 H (5-31) U/L Alkaline Phosphatase 235 H (39-117) U/L Troponin I High Sens 33.9 H D (<3.5-17.0) ng/L NT-Pro-B Natriuret Pep 148228.7 H (<300) pg/mL Crossmatch 01/21/25 01/22/25 01/22/25 Range/Units 23:41 00:17 06:05 WBC 13.8 H 11.2 H (4.8-10.8) X10*3/uL RBC 2.16 L 2.53 L (4.20-5.50) X10*6/uL Hgb 6.6 L* 7.7 L (12.0-16.0) g/dl Hct 19.7 L* 22.9 L (37.0-47.0) % Plt Count 125 L 118 L (160-400) X10*3/uL Immature Gran % (Auto) (0.0-0.4) % Neut % (Auto) 92.5 H (45-73) % Lymph % (Auto) 2.1 L (20-40) % Lander % (Auto) (2-11) % Lymph # (Auto) 0.2 L (1.2-4.9) X10*3/uL Abs Immat Gran (auto) 0.04 H (0.00-0.03) X10*3/uL Absolute Neuts (auto) 10.3 H (2.0-8.3) x10*3/uL PT 17.4 H (11.2-13.5) SEC INR 1.4 H (0.9-1.1) APTT (26.7-34.1) SEC VBG pH (7.32-7.43) Anion Gap (12-20) BUN 41 H (9-16) mg/dL Creatinine 7.20 H* (0.5-1.4) mg/dL Lactic Acid (0.5-2.0) mmol/L Calcium 8.1 L D (8.4-10.2) mg/dL Phosphorus 4.9 H (2.7-4.5) mg/dL Total Bilirubin (0.0-1.0) mg/dL AST (5-31) U/L Alkaline Phosphatase (39-117) U/L Troponin I High Sens (<3.5-17.0) ng/L NT-Pro-B Natriuret Pep (<300) pg/mL Crossmatch See Detail Short CBC 01/21/25 01/21/25 01/21/25 Range/Units 17:06 23:06 23:41 WBC 6.3 12.8 H 13.8 H (4.8-10.8) X10*3/uL Hgb 7.9 L 6.7 L* 6.6 L* (12.0-16.0) g/dl Hct 23.2 L 19.7 L* 19.7 L* (37.0-47.0) % Plt Count 208 121 L D 125 L (160-400) X10*3/uL 01/22/25 Range/Units 06:05 WBC 11.2 H (4.8-10.8) X10*3/uL Hgb 7.7 L (12.0-16.0) g/dl Hct 22.9 L (37.0-47.0) % Plt Count 118 L (160-400) X10*3/uL BMP 01/21/25 01/22/25 17:06 06:05 Sodium 142 135 Potassium 4.1 4.5 Chloride 100 98 Carbon Dioxide 24 23 BUN 37 H 41 H Creatinine 6.39 H* 7.20 H* Calcium 8.9 8.1 L D Liver Function 01/21/25 Range/Units 17:06 Total Bilirubin 1.1 H (0.0-1.0) mg/dL AST 44 H (5-31) U/L ALT 21 (0-31) U/L Alkaline Phosphatase 235 H (39-117) U/L Albumin 4.1 (3.5-5.0) g/dL All other labs normal. Assessment and Plan (1) Severe sepsis: Status: Acute (2) Status post below-knee amputation of left lower extremity: Status: Acute Plan 34-year-old female patient well known to service, status post left BKA on 01/05/2025. Patient returns to the emergency department with fever of 102.3 and tachycardia. Workup revealed a possible rim enhancing fluid collection in the stump noted on CT. Patient also found to have PE on chest CT. Examination of the left BKA stump reveals a healing BKA stump with the appropriate postoperative changes, intact sutures with no evidence of discharge or skin necrosis. The expected postoperative swelling is noted in the posterior flap with no clear evidence of an abscess. Patient currently on Zosyn and vancomycin. We will continue to monitor the left BKA stump. Procedures Date of Service Date of Service: 01/22/25
[2025-01-22] MEDS: Lidocaine 4 % Patch ADH..PATCH 2 PATCH TRANSDERMA (09:55)
[2025-01-22 10:57] LABS: Glucose, Whole Blood 83 mg/dL (60-115)
[2025-01-22 13:51] LABS: PTT Heparin Drip 50.9 SEC (53-77.9)
--- NOTE | 2025-01-22 15:29 | PHA.MEDREC ---
Pharmacy Consult ? Medication Reconciliation Pharmacy has completed the medication reconciliation.Med rec complete. Confirmed with patient that no changes have been made to her medications since her last discharge less than 1 week ago. She did mention that she had run out of hydromorphone, she was alternating prn with oxycodone and hydromorphone
[2025-01-22 16:20] LABS: Glucose, Whole Blood 56 mg/dL (60-115)
[2025-01-22 17:18] LABS: Glucose, Whole Blood 85 mg/dL (60-115)
[2025-01-22] MEDS: Heparin Sodium,Porcine/1/2NS 25,000 UNIT/250 ML IV.SOLN 13.63 UNIT IVCONT (17:25)
[2025-01-22 19:06] LABS: Troponin-I High Sensitivity 68.2 ng/L (<3.5-17.0)
[2025-01-22 20:54] LABS: Glucose, Whole Blood 94 mg/dL (60-115)
[2025-01-22 21:15] LABS: PTT Heparin Drip 96.2 SEC (53-77.9)
[2025-01-23] VITALS (8 sets, daily range): BP systolic 121–203; BP diastolic 63–96; PULSE 68–91; RESP 16–20; TEMP 36–37; O2SAT 94–97
[2025-01-23 01:59] LABS: Troponin-I High Sensitivity 49.3 ng/L (<3.5-17.0)
[2025-01-23 02:01] LABS: Hematocrit 20.6 % (37.0-47.0); Hemoglobin 6.8 g/dl (12.0-16.0)
--- NOTE | 2025-01-23 02:07 | PM.EVENT ---
Event Note Date of Service: 01/23/25 Event Note: Patient with refractory anemia, hemoglobin dropped again to 6.8. We will transfuse one PRBC, hold heparin IV infusion, start treatment with Protonix IV, NPO, gastroenterology consult and obtain anemia workup. Time Spent With Patient Time: Total time managing care of this patient today ____ minutes.
[2025-01-23] MEDS: 0.9 % Sodium Chloride Flush 3 ML SYRINGE IVFLUSH ×3 (02:45→23:23)
--- NOTE | 2025-01-23 06:46 | P.CONNP_ITS ---
History of Present Illness Reason for Consult Consult date: 01/23/25 Reason for consult: ESRD Chief Complaint Chief complaint: Severe sepsis History of Present Illness Narrative: In summary she is a34 year old female with ESRD on HD TuThSa, DM2 with polyneuropathy/retinopathy + legal blindness, PAD s/p R TMA and recent Left BKA, chronic hypoxia on 3-4L O2, chronic HFrEF, multiple HD catheter line infections with MSSA/Stenotrophomonas/Pseudomonas, mood disorder, and chronic pain with opioid-seeking behavior; recently diagnosed MS who presents with infection ( stump) with fever Patient was given IV vancomycin / zosyn Current patient seen at dialysis LAst dialysis was Sunday DId not have dialysis on Sunday Review of Systems Constitutional: Reports anorexia, Reports poor appetite and Reports weakness Comments: no chest pain No shortness of breath Comments: NO cough 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 Reports weakness PMFSH Past Medical History Medical History (Updated 01/22/25 @ 00:05 by Dee Dee Sánchez DO) Central pontine myelinolysis ESRD on hemodialysis End-stage renal disease (ESRD) Cardiomyopathy Cerebral microvascular disease Steroid-induced hyperglycemia Relapsing remitting multiple sclerosis Renal failure Multiple sclerosis Cerebral infarction Hyperkalemia ESRD on dialysis Hypoxia End stage renal disease on dialysis Chronic ulcer of right foot due to diabetes mellitus Chronic ulcer of left foot due to diabetes mellitus DM foot ulcer Hypotonic neurogenic bladder Diabetic polyneuropathy Hypertensive emergency Decompensated heart failure Renal failure Hypertension, uncontrolled Medical non-compliance Pericarditis Unspecified hypertension, condition or complication Metabolic acidosis Gastroparesis End stage chronic kidney disease Chronic kidney disease Anemia Plantar ulcer of left foot MDD (major depressive disorder) CKD (chronic kidney disease) Hypertension Vomiting Chronic pain Non-compliance with renal dialysis Diabetic foot ulcer associated with type 2 diabetes mellitus HFrEF (heart failure with reduced ejection fraction) delivery delivered Anemia in chronic kidney disease (CKD) CKD (chronic kidney disease) Abnormal finding on echocardiogram Elevated troponin Acute worsening of stage 3 chronic kidney disease Generalized edema Sepsis Cellulitis Pleural effusion Atypical chest pain Bone infection PAD (peripheral artery disease) Cellulitis and abscess of foot Osteomyelitis Asthma Depression with anxiety Diabetic retinopathy Blind right eye Diabetes Back pain Family History Family History Mother Coronary artery disease Myocardial infarction Stroke Diabetes mellitus Father Myocardial infarction Surgical History Surgical History (Updated 01/16/25 @ 00:01 by Background Daemon) Below-knee amputation of left lower extremity (~01/05/25) Tubal ligation status Previous section Hx laparoscopic cholecystectomy Hx of surgical procedure (~09/11/23) 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 Social History Social History Household Members: Family Household Members Other:: sister, brother, [id number] Housing: Apartment Housing Other:: Apartment, 1st floor Are you a primary career technical counselor to a significant other at home: No Do you presently have visiting nurse or other home services: No Alcohol intake: never Comment: patient refusing bed alarm Patient Tobacco Use Status: Never used Tobacco e-Cigarette/Vaping Use: Never Used Second Hand Smoke Exposure: No Advance Directives Date on File: 08/28/23 service: No Current occupational status: unemployed and disabled Gender identity: Female Meds Allergies Allergy/AdvReac Type Severity Reaction Status Date / Time gabapentin Allergy Severe Facial Verified 01/21/25 16:52 Swelling tramadol Allergy Severe Facial Verified 01/21/25 16:52 Swelling azithromycin (From Zithromax) Allergy Intermediate Hives Verified 01/21/25 16:52 morphine (MORPHINE) Allergy Intermediate Itching Verified 01/21/25 16:52 vancomycin AdvReac Intermediate Itching Verified 01/21/25 16:52 Active Medications: Current Medications Acetaminophen (Acetaminophen 325 Mg Tablet) 975 mg PO Q6H PRN PRN Reason: Pain, Mild 1-3,fever,headache Albuterol Sulfate (Albuterol Sulfate 90 Mcg 8 Gm Inhaler) 2 puff INHALE Q6H PRN PRN Reason: Wheezing Amlodipine Besylate (Amlodipine Besylate 2.5 Mg Tablet) 7.5 mg PO BEDTIME [facility]; Protocol Last Admin: 01/23/25 00:33 Dose: 7.5 mg Baclofen (Baclofen 10 Mg Tablet) 10 mg PO QID [facility] Last Admin: 01/22/25 22:24 Dose: Not Given Calcium Carbonate (Calcium Carbonate 750 Mg Tab.Chew) 375 mg PO TIDWM PRN PRN Reason: Acid Reflux Carvedilol (Carvedilol 12.5 Mg Tablet) 12.5 mg PO BID [facility]; Protocol Dextrose (Dextrose 50 % 25 Gm/50 Ml Syringe) 25 gm IVPUSH Q15M PRN; Protocol PRN Reason: per Hypoglycemia Standing Ord. Diphenhydramine HCl (Diphenhydramine Hcl 50 Mg/Ml Vial) 12.5 mg IVPUSH Q6H PRN PRN Reason: Itching Last Admin: 01/23/25 05:22 Dose: 12.5 mg Glucose (Glucose Gel 15 Gm Gel..Gram.) 15 gm PO Q15M PRN; Protocol PRN Reason: per Hypoglycemia Standing Ord. Heparin Sodium (Porcine) (Heparin Sodium,Porcine 5,000 Unit/Ml Vial) 3,400 unit 40 unit/kg (3400 unit) IVPUSH PROTOCOL BOLUS PRN; Protocol PRN Reason: 40 unit/kg - Heparin Protocol Last Admin: 01/22/25 14:02 Dose: 3,400 unit Heparin Sodium (Porcine) (Heparin Sodium,Porcine 5,000 Unit/Ml Vial) 6,800 unit 80 unit/kg (6800 unit) IVPUSH PROTOCOL BOLUS PRN; Protocol PRN Reason: 80 unit/kg - Heparin Protocol Hydralazine HCl (Hydralazine Hcl 50 Mg Tablet) 50 mg PO TID [facility]; Protocol Hydromorphone HCl (Hydromorphone Hcl 1 Mg/Ml Syringe) 1 mg IVPUSH Q3H PRN; Protocol PRN Reason: Pain, Severe (Pain Scale 7-10) Last Admin: 01/23/25 05:21 Dose: 1 mg Heparin Sodium/Sodium Chloride (Heparin Sodium,Porcine/1/2ns) 25,000 unit in 250 mls @ 0 mls/hr IVCONT .Q0M [facility]; Protocol On Hold: 01/23/25 02:02 Last Titration: 01/23/25 02:24 Dose: 0 units/kg/hr, 0 mls/hr Piperacillin Sod/Tazobactam (Sod 2.25 gm/ Sodium Chloride) 50 mls @ 100 mls/hr IV Q8H [facility] Last Infusion: 01/23/25 06:22 Dose: Infused Vancomycin HCl 500 mg/ Sodium (Chloride) 110 mls @ 110 mls/hr IV ONCE ONE Stop: 01/23/25 19:29 Insulin Human Lispro (Insulin Lispro 100 Unit/Ml 3 Ml Vial) 0 unit SUBCUT QIDACHS [facility]; Protocol Last Admin: 01/22/25 22:24 Dose: Not Given Lidocaine (Lidocaine 4 % Patch Adh..Patch) 2 patch TRANSDERMA DAILY [facility]; Protocol Last Admin: 01/22/25 09:55 Dose: 2 patch Melatonin (Melatonin 3 Mg Tablet) 6 mg PO BEDTIME PRN PRN Reason: Insomnia Metoclopramide HCl (Metoclopramide Hcl 10 Mg Tablet) 10 mg PO Q6H PRN PRN Reason: Nausea and Vomiting Oxycodone HCl (Oxycodone Hcl Er 10 Mg Tab.Er.12h) 20 mg PO BID [facility] Last Admin: 01/22/25 22:24 Dose: Not Given Pantoprazole Sodium (Pantoprazole Sodium 40 Mg/10 Ml Vial) 40 mg IVPUSH BID@0630,1630 [facility] Pharmacy Consult (Consult Rx Vancomycin Dosing) 1 each MISCELLANE DAILY PRN PRN Reason: Consult order Prochlorperazine Edisylate (Prochlorperazine Edisylate 10 Mg/2 Ml Vial) 5 mg IVPUSH Q6H PRN PRN Reason: Nausea and Vomiting Last Admin: 01/23/25 05:25 Dose: 5 mg Sodium Chloride (0.9 % Sodium Chloride Flush 3 Ml Syringe) 3 ml IVFLUSH QSHIFT ON [facility] Last Admin: 01/23/25 02:45 Dose: 3 ml Home Medications ?Medication ?Instructions ?Recorded ?Confirmed ?Last Taken ?Type albuterol sulfate 90 mcg/actuation 2 puff inhalation Q 6H PRN wheezing 01/15/24 01/22/25 12/09/24 History aerosol inhaler (Ventolin HFA) nitroglycerin 0.4 mg sublingual 0.4 mg sublingual D IRECTED PRN 01/15/24 01/22/25 12/09/24 History tablet Angina calcium carbonate (Tums) 200 mg PO TIDWM PRN Acid Ref lux 07/03/24 01/22/25 12/09/24 History Physical Exam Vital Signs: Last Vital Signs Temp 97.5 F 01/23/25 03:09 Pulse 76 01/23/25 03:09 Resp 18 01/23/25 03:09 BP 168/85 H 01/23/25 03:09 Pulse Ox 96 01/22/25 23:38 O2 Del Method Nasal Cannula 01/22/25 23:38 O2 Flow Rate 2 01/22/25 23:38 Oxygen Flow Rate 5 01/21/25 16:47 BMI result Body Mass Index 33.0 Chest Chest palpation & inspection: normal inspection of the chest Cardio Jugular venous distension: no JVD Rhythm: regular rhythm Heart sounds: S1 normal heart sound present and S2 normal heart sound present GI Inspection: Yes normal to inspection Results Lab Results 01/23/25 01:29 01/22/25 06:05 Lab results: Chemistry 01/21/25 01/22/25 17:06 06:05 Sodium 142 135 Potassium 4.1 4.5 Carbon Dioxide 24 23 BUN 37 H 41 H Creatinine 6.39 H* 7.20 H* Calcium 8.9 8.1 L D Phosphorus 4.9 H Hematology 01/21/25 01/21/25 01/21/25 17:06 23:06 23:41 WBC 6.3 12.8 H 13.8 H Hgb 7.9 L 6.7 L* 6.6 L* Plt Count 208 121 L D 125 L 01/22/25 01/23/25 06:05 01:29 WBC 11.2 H Hgb 7.7 L 6.8 L* Plt Count 118 L Assessment and Plan (1) ESRD on hemodialysis: Status: Acute Plan ESRD: usu TTS but as in patient for MWF schedule. HyperK: History of hyperkalemia. If potassium high, for lokelma on non-HD day Nephrogenic Anemia: needs EPO ( I will order 10k sq x1). Transfuse to aim HB > 7 MBD of CKD Antibitoics per primary team Patient referred to surgery Procedures Date of Service Date of Service: 01/23/25
[2025-01-23 07:35] LABS: Glucose, Whole Blood 88 mg/dL (60-115)
[2025-01-23 07:51] LABS: Reticulocytes Absolute 0.061 X10*6/uL (0.026-0.095)
[2025-01-23 08:01] LABS: PTT Heparin Drip 28.0 SEC (53-77.9)
[2025-01-23 08:08] LABS: Iron 47 mcg/dL (30-160); Percent Iron Saturation 30 % (15-50); Total Iron Binding Capacity 157 mcg/dL (228-428); Unsaturated Iron Binding 110 ug/dL
--- NOTE | 2025-01-23 08:17 | PC.NURSE ---
Addendum entered by Glendy Durham RN 01/23/25 18:09: heparin gtt discontinued per MD order, transition to oral anticoag. see apr Addendum entered by Glendy Durham RN 01/23/25 11:09: heparin gtt resumed now at 14units/kg/hr per order and Pharmacist Rekha clarification with a bolus of 6500 units of heparin prior per apr. cont to monitor for any sign of bleeding Addendum entered by Glendy Durham RN 01/23/25 10:21: pt returned to her room after HD. BP still high 187/84 also c/o nausea. MD Marcelino notified and ok to give Benadryl early as pt agreeable to take it. currently pt refusing taking PO meds. will attempt to convince pt again. Original Note: assumed care at 0700. Pt was seen in dialysis room with night RN and HD nurse. pt is alert and oriented, no compliants offered at this time. BP high 203/96. Blood transfusion was done at 0630 today per night RN and heparint was on HOLD/paused at 0224 today as blood transfusion need to be running and suspected internal bleeding per report. This RN notified MD Marcelino on these information this morning and a verbal order of checking CBC was put in , and also wants to resume heparin gtt, most recent aptt is 28. This Rn called pharmacist regarding what rate to resume and was told to refer to hospitalist. Reached out to MD Marcelino and waiting on her response/order.
[2025-01-23 08:23] LABS: Ferritin 286 ng/mL (10-122)
[2025-01-23 08:34] LABS: Folate 8.2 ng/mL (> or = 4.0); Vitamin B12 741 pg/mL (200-900)
[2025-01-23 09:05] LABS: MANUAL DIFF FLAG NO
[2025-01-23 09:25] LABS: Hematocrit 24.6 % (37.0-47.0); Hemoglobin 8.3 g/dl (12.0-16.0); Imm Gran Abs Auto 0.02 X10*3/uL (0.00-0.03); Imm Gran Pct Auto 0.5 % (0.0-0.4); Lymphocytes Absolute Auto 0.3 X10*3/uL (1.2-4.9); Mean Corpuscular HGB Conc 33.7 g/dl (31.0-35.0); Mean Corpuscular Hemoglobin 30.0 pg (27.0-33.0); Mean Corpuscular Volume 88.8 fL (80.0-98.0); NRBC Abs Auto 0.000 X10*3/uL (0.0-0.012); NRBC Pct Auto 0.0 /100WBC (0.0-0.2); Platelet Count 98 X10*3/uL (160-400); Red Blood Count 2.77 X10*6/uL (4.20-5.50); White Blood Count 4.2 X10*3/uL (4.8-10.8)
--- NOTE | 2025-01-23 09:30 | PM.PNGS ---
Subjective Subjective Date of Service: 01/23/25 Interval history: Ongoing dialysis Describes some pain on the stump and also on the right leg Pain complaints on extremities appeared to be chronic Physical Exam Vital Signs: Vital Signs: Last Vital Signs Temp 98.4 F 01/23/25 07:22 Pulse 78 01/23/25 07:22 Resp 18 01/23/25 07:22 BP 203/96 H 01/23/25 07:22 Pulse Ox 96 01/22/25 23:38 O2 Del Method Nasal Cannula 01/22/25 23:38 O2 Flow Rate 2 01/22/25 23:38 Oxygen Flow Rate 5 01/21/25 16:47 BMI result Body Mass Index 33.0 Const: General: comfortable and no acute distress Resp: Effort & Inspection: normal respiratory effort Extrem: Other: Left BKA site clean, dry no signs of infection, no erythema, sutures in place, no discharge, no fluctuance Objective Data Active Medications Acetaminophen (Acetaminophen 325 Mg Tablet) 975 mg PO Q6H PRN PRN Reason: Pain, Mild 1-3,fever,headache Albuterol Sulfate (Albuterol Sulfate 90 Mcg 8 Gm Inhaler) 2 puff INHALE Q6H PRN PRN Reason: Wheezing Amlodipine Besylate (Amlodipine Besylate 2.5 Mg Tablet) 7.5 mg PO BEDTIME [facility]; Protocol Last Admin: 01/23/25 00:33 Dose: 7.5 mg Documented By: BERNABE Baclofen (Baclofen 10 Mg Tablet) 10 mg PO QID [facility] Last Admin: 01/22/25 22:24 Dose: Not Given Documented By: BERNABE Non-Admin Reason: pt refuse Calcium Carbonate (Calcium Carbonate 750 Mg Tab.Chew) 375 mg PO TIDWM PRN PRN Reason: Acid Reflux Carvedilol (Carvedilol 12.5 Mg Tablet) 12.5 mg PO BID [facility]; Protocol Dextrose (Dextrose 50 % 25 Gm/50 Ml Syringe) 25 gm IVPUSH Q15M PRN; Protocol PRN Reason: per Hypoglycemia Standing Ord. Diphenhydramine HCl (Diphenhydramine Hcl 50 Mg/Ml Vial) 12.5 mg IVPUSH Q6H PRN PRN Reason: Itching Last Admin: 01/23/25 05:22 Dose: 12.5 mg Documented By: BERNABE Glucose (Glucose Gel 15 Gm Gel..Gram.) 15 gm PO Q15M PRN; Protocol PRN Reason: per Hypoglycemia Standing Ord. Heparin Sodium (Porcine) (Heparin Sodium,Porcine 5,000 Unit/Ml Vial) 3,400 unit 40 unit/kg (3400 unit) IVPUSH PROTOCOL BOLUS PRN; Protocol PRN Reason: 40 unit/kg - Heparin Protocol Last Admin: 01/22/25 14:02 Dose: 3,400 unit Documented By: LAILA Heparin Sodium (Porcine) (Heparin Sodium,Porcine 5,000 Unit/Ml Vial) 6,800 unit 80 unit/kg (6800 unit) IVPUSH PROTOCOL BOLUS PRN; Protocol PRN Reason: 80 unit/kg - Heparin Protocol Hydralazine HCl (Hydralazine Hcl 50 Mg Tablet) 50 mg PO TID [facility]; Protocol Hydromorphone HCl (Hydromorphone Hcl 1 Mg/Ml Syringe) 1 mg IVPUSH Q3H PRN; Protocol PRN Reason: Pain, Severe (Pain Scale 7-10) Last Admin: 01/23/25 05:21 Dose: 1 mg Documented By: BERNABE Heparin Sodium/Sodium Chloride (Heparin Sodium,Porcine/1/2ns) 25,000 unit in 250 mls @ 0 mls/hr IVCONT .Q0M [facility]; Protocol On Hold: 01/23/25 02:02 Last Titration: 01/23/25 02:24 Dose: 0 units/kg/hr, 0 mls/hr Documented By: BERNABE Co-signed By: SAMSON Piperacillin Sod/Tazobactam (Sod 2.25 gm/ Sodium Chloride) 50 mls @ 100 mls/hr IV Q8H [facility] Last Infusion: 01/23/25 06:22 Dose: Infused Documented By: BERNABE Vancomycin HCl 500 mg/ Sodium (Chloride) 110 mls @ 110 mls/hr IV ONCE ONE Stop: 01/23/25 19:29 Insulin Human Lispro (Insulin Lispro 100 Unit/Ml 3 Ml Vial) 0 unit SUBCUT QIDACHS [facility]; Protocol Last Admin: 01/23/25 09:17 Dose: Not Given Documented By: LARRY Non-Admin Reason: No Insulin Coverage Lidocaine (Lidocaine 4 % Patch Adh..Patch) 2 patch TRANSDERMA DAILY [facility]; Protocol Last Admin: 01/22/25 09:55 Dose: 2 patch Documented By: LAILA Melatonin (Melatonin 3 Mg Tablet) 6 mg PO BEDTIME PRN PRN Reason: Insomnia Metoclopramide HCl (Metoclopramide Hcl 10 Mg Tablet) 10 mg PO Q6H PRN PRN Reason: Nausea and Vomiting Oxycodone HCl (Oxycodone Hcl Er 10 Mg Tab.Er.12h) 20 mg PO BID [facility] Last Admin: 01/22/25 22:24 Dose: Not Given Documented By: BERNABE Non-Admin Reason: pt refuse Pantoprazole Sodium (Pantoprazole Sodium 40 Mg/10 Ml Vial) 40 mg IVPUSH BID@0630,7130 [facility] Pharmacy Consult (Consult Rx Vancomycin Dosing) 1 each MISCELLANE DAILY PRN PRN Reason: Consult order Prochlorperazine Edisylate (Prochlorperazine Edisylate 10 Mg/2 Ml Vial) 5 mg IVPUSH Q6H PRN PRN Reason: Nausea and Vomiting Last Admin: 01/23/25 05:25 Dose: 5 mg Documented By: BERNABE Sodium Chloride (0.9 % Sodium Chloride Flush 3 Ml Syringe) 3 ml IVFLUSH QSHIFT [facility] Last Admin: 01/23/25 02:45 Dose: 3 ml Documented By: BERNABE Labs 01/23/25 07:34 01/22/25 06:05 Labs: Laboratory Results - last 24 hr 01/22/25 01/22/25 01/22/25 00:17 10:48 12:59 MCV MCH MCHC RDW Plt Count MPV Immature Gran % (Auto) Neut % (Auto) Lymph % (Auto) Reynolds % (Auto) Eos % (Auto) Baso % (Auto) Lymph # (Auto) Reynolds # (Auto) Eos # (Auto) Baso # (Auto) Abs Immat Gran (auto) Absolute Neuts (auto) Absolute Nucleated RBC Nucleated RBC % (auto) Absolute Retic Percent Retic Immature Retic Fraction Retic Hgb Equivalent Hold Purple Top SEE NOTE aPTT Heparin Protocol 50.9 L POC Glucose 83 Iron TIBC % Saturation Unsat Iron Binding Ferritin Troponin I High Sens Vitamin B12 Folate Hold Yellow Top See Note Blood Type A Positive Antibody Screen NEGATIVE Crossmatch See Detail 01/22/25 01/22/25 01/22/25 16:16 17:14 18:15 MCV MCH MCHC RDW Plt Count MPV Immature Gran % (Auto) Neut % (Auto) Lymph % (Auto) Reynolds % (Auto) Eos % (Auto) Baso % (Auto) Lymph # (Auto) Reynolds # (Auto) Eos # (Auto) Baso # (Auto) Abs Immat Gran (auto) Absolute Neuts (auto) Absolute Nucleated RBC Nucleated RBC % (auto) Absolute Retic Percent Retic Immature Retic Fraction Retic Hgb Equivalent Hold Purple Top aPTT Heparin Protocol POC Glucose 56 L* 85 Iron TIBC % Saturation Unsat Iron Binding Ferritin Troponin I High Sens 68.2 H* D Vitamin B12 Folate Hold Yellow Top Blood Type Antibody Screen Crossmatch 01/22/25 01/22/25 01/23/25 19:58 20:41 01:29 MCV MCH MCHC RDW Plt Count MPV Immature Gran % (Auto) Neut % (Auto) Lymph % (Auto) Reynolds % (Auto) Eos % (Auto) Baso % (Auto) Lymph # (Auto) Reynolds # (Auto) Eos # (Auto) Baso # (Auto) Abs Immat Gran (auto) Absolute Neuts (auto) Absolute Nucleated RBC Nucleated RBC % (auto) Absolute Retic Percent Retic Immature Retic Fraction Retic Hgb Equivalent Hold Purple Top aPTT Heparin Protocol 96.2 H D POC Glucose 94 Iron TIBC % Saturation Unsat Iron Binding Ferritin Troponin I High Sens 49.3 H Vitamin B12 Folate Hold Yellow Top Blood Type Antibody Screen Crossmatch 01/23/25 01/23/25 07:30 07:34 MCV 88.8 MCH 30.0 MCHC 33.7 RDW 15.0 Plt Count 98 L MPV 11.6 Immature Gran % (Auto) 0.5 H Neut % (Auto) 76.7 H Lymph % (Auto) 7.1 L Reynolds % (Auto) 11.2 H Eos % (Auto) 4.0 Baso % (Auto) 0.5 Lymph # (Auto) 0.3 L Reynolds # (Auto) 0.5 Eos # (Auto) 0.2 Baso # (Auto) 0.0 Abs Immat Gran (auto) 0.02 Absolute Neuts (auto) 3.2 Absolute Nucleated RBC 0.000 Nucleated RBC % (auto) 0.0 Absolute Retic 0.061 Percent Retic 2.2 H Immature Retic Fraction 8.4 Retic Hgb Equivalent 31.6 Hold Purple Top aPTT Heparin Protocol 28.0 L D POC Glucose 88 Iron 47 TIBC 157 L % Saturation 30 Unsat Iron Binding 110 Ferritin 286 H Troponin I High Sens Vitamin B12 741 Folate 8.2 Hold Yellow Top Blood Type Antibody Screen Crossmatch Microbiology Microbiology Results: Microbiology 01/21/25 17:21 Blood Culture - Preliminary Blood - Venous No growth after 24 hours. 01/21/25 17:06 Blood Culture - Preliminary Blood - Venous No growth after 24 hours. Procedures Date of Service Date of Service: 01/23/25 Progress Note: A&P Assessment and plan (1) Status post below-knee amputation of left lower extremity: Status: Acute Assessment and Plan: Site does not appear infected No discharge, no fluctuance, no warmth No I&D to be done currently Plan to remove sutures next week Time Spent With Patient Time: Total time managing care of this patient today ____ minutes. Quality Stroke Does the patient have a stroke diagnosis?: No VTE Prior VTE?: No VTE Risk Level:: Medical - moderate - high VTE Device Contraindication: Treatment Not Indicated VTE Drug Contraindication: N/A - Med Ordered
[2025-01-23 11:46] LABS: Glucose, Whole Blood 74 mg/dL (60-115)
--- NOTE | 2025-01-23 14:10 | MHC.CM.PN ---
PER ROUNDS PT NOT READY FOR DC DC PLAN REMAINS HOME WITH [facility]
[2025-01-23 16:23] LABS: Glucose, Whole Blood 124 mg/dL (60-115)
[2025-01-23] MEDS: Heparin Sodium,Porcine/1/2NS 25,000 UNIT/250 ML IV.SOLN 11.93 UNIT IVCONT (17:22)
--- NOTE | 2025-01-23 17:40 | P.PNIM_ITS ---
Subjective Subjective Date of Service: 01/23/25 Interval History: UNderwent HD today per [facility] resume Heparin per protocol with bolus dosing as it was stopped ON due to A/C ABLA Subtherapeutic PT Review of Systems Review of Systems: Yes all other systems are reviewed and are negative Physical Exam 2 Vital Signs: Vital Signs: Last Vital Signs Temp 97.5 F 01/23/25 15:14 Pulse 75 01/23/25 15:14 Resp 18 01/23/25 15:14 BP 135/65 01/23/25 15:14 Pulse Ox 94 01/23/25 15:14 O2 Del Method Room Air 01/23/25 15:14 O2 Flow Rate 1 01/23/25 12:00 Oxygen Flow Rate 5 01/21/25 16:47 BMI result Body Mass Index 33.0 Const: General: no acute distress Nutritional Appearance: well nourished Orientation/consciousness: patient oriented x3 Resp: Effort & Inspection: normal respiratory effort, no audible wheezes and no cough Skin: Other: Warm, dry, no rash Neuro: General: patient oriented x3 Extrem: Other: Left BKA stump with normal postoperative changes. Skin flaps are clean without skin necrosis or significant erythema. Normal swelling noted at the lower flap without evidence of an abscess at this time. Sutures remain intact without discharge. Of note no compressive dressing is in place at this time. Objective Data Active Medications Acetaminophen (Acetaminophen 325 Mg Tablet) 975 mg PO Q6H PRN PRN Reason: Pain, Mild 1-3,fever,headache Albuterol Sulfate (Albuterol Sulfate 90 Mcg 8 Gm Inhaler) 2 puff INHALE Q6H PRN PRN Reason: Wheezing Amlodipine Besylate (Amlodipine Besylate 2.5 Mg Tablet) 7.5 mg PO BEDTIME [facility]; Protocol Last Admin: 01/23/25 00:33 Dose: 7.5 mg Documented By: BERNABE Baclofen (Baclofen 10 Mg Tablet) 10 mg PO QID [facility] Last Admin: 01/23/25 16:50 Dose: Not Given Documented By: LARRY Non-Admin Reason: Patient Refused Calcium Carbonate (Calcium Carbonate 750 Mg Tab.Chew) 375 mg PO TIDWM PRN PRN Reason: Acid Reflux Carvedilol (Carvedilol 12.5 Mg Tablet) 12.5 mg PO BID [facility]; Protocol Last Admin: 01/23/25 10:35 Dose: 12.5 mg Documented By: LARRY Dextrose (Dextrose 50 % 25 Gm/50 Ml Syringe) 25 gm IVPUSH Q15M PRN; Protocol PRN Reason: per Hypoglycemia Standing Ord. Diphenhydramine HCl (Diphenhydramine Hcl 50 Mg/Ml Vial) 12.5 mg IVPUSH Q6H PRN PRN Reason: Itching Last Admin: 01/23/25 17:21 Dose: 12.5 mg Documented By: LARRY Glucose (Glucose Gel 15 Gm Gel..Gram.) 15 gm PO Q15M PRN; Protocol PRN Reason: per Hypoglycemia Standing Ord. Heparin Sodium (Porcine) (Heparin Sodium,Porcine 5,000 Unit/Ml Vial) 3,400 unit 40 unit/kg (3400 unit) IVPUSH PROTOCOL BOLUS PRN; Protocol PRN Reason: 40 unit/kg - Heparin Protocol Last Admin: 01/22/25 14:02 Dose: 3,400 unit Documented By: LAILA Heparin Sodium (Porcine) (Heparin Sodium,Porcine 5,000 Unit/Ml Vial) 6,800 unit 80 unit/kg (6800 unit) IVPUSH PROTOCOL BOLUS PRN; Protocol PRN Reason: 80 unit/kg - Heparin Protocol Hydralazine HCl (Hydralazine Hcl 50 Mg Tablet) 50 mg PO TID [facility]; Protocol Last Admin: 01/23/25 16:40 Dose: 50 mg Documented By: LARRY Hydromorphone HCl (Hydromorphone Hcl 1 Mg/Ml Syringe) 1 mg IVPUSH Q3H PRN; Protocol PRN Reason: Pain, Severe (Pain Scale 7-10) Last Admin: 01/23/25 16:44 Dose: 1 mg Documented By: LARRY Heparin Sodium/Sodium Chloride (Heparin Sodium,Porcine/1/2ns) 25,000 unit in 250 mls @ 0 mls/hr IVCONT .Q0M [facility]; Protocol Last Admin: 01/23/25 17:22 Dose: 14 units/kg/hr, 11.93 mls/hr Documented By: LARRY Co-signed By: MEENAKSHI Piperacillin Sod/Tazobactam (Sod 2.25 gm/ Sodium Chloride) 50 mls @ 100 mls/hr IV Q8H [facility] Last Infusion: 01/23/25 15:25 Dose: Infused Documented By: LARRY Vancomycin HCl 500 mg/ Sodium (Chloride) 110 mls @ 110 mls/hr IV ONCE ONE Stop: 01/23/25 19:29 Insulin Human Lispro (Insulin Lispro 100 Unit/Ml 3 Ml Vial) 0 unit SUBCUT QIDACHS [facility]; Protocol Last Admin: 01/23/25 16:50 Dose: Not Given Documented By: LARRY Non-Admin Reason: No Insulin Coverage Lidocaine (Lidocaine 4 % Patch Adh..Patch) 2 patch TRANSDERMA DAILY [facility]; Protocol Last Admin: 01/23/25 10:34 Dose: Not Given Documented By: LARRY Non-Admin Reason: Patient Refused Melatonin (Melatonin 3 Mg Tablet) 6 mg PO BEDTIME PRN PRN Reason: Insomnia Oxycodone HCl (Oxycodone Hcl Er 10 Mg Tab.Er.12h) 20 mg PO BID [facility] Last Admin: 01/23/25 10:12 Dose: Not Given Documented By: LARRY Non-Admin Reason: Patient Refused Pantoprazole Sodium (Pantoprazole Sodium 40 Mg/10 Ml Vial) 40 mg IVPUSH BID@0630,1630 [facility] Last Admin: 01/23/25 16:44 Dose: 40 mg Documented By: LARRY Pharmacy Consult (Consult Rx Vancomycin Dosing) 1 each MISCELLANE DAILY PRN PRN Reason: Consult order Prochlorperazine Edisylate (Prochlorperazine Edisylate 10 Mg/2 Ml Vial) 5 mg IVPUSH Q6H PRN PRN Reason: Nausea and Vomiting Last Admin: 01/23/25 05:25 Dose: 5 mg Documented By: BERNABE Sodium Chloride (0.9 % Sodium Chloride Flush 3 Ml Syringe) 3 ml IVFLUSH QSHIFT [facility] Last Admin: 01/23/25 16:50 Dose: Not Given Documented By: LARRY Non-Admin Reason: IV Running Labs 01/23/25 07:34 01/22/25 06:05 Labs: Laboratory Results - last 24 hr 01/22/25 01/22/25 01/22/25 00:17 18:15 19:58 MCV MCH MCHC RDW Plt Count MPV Immature Gran % (Auto) Neut % (Auto) Lymph % (Auto) Moore % (Auto) Eos % (Auto) Baso % (Auto) Lymph # (Auto) Moore # (Auto) Eos # (Auto) Baso # (Auto) Abs Immat Gran (auto) Absolute Neuts (auto) Absolute Nucleated RBC Nucleated RBC % (auto) Absolute Retic Percent Retic Immature Retic Fraction Retic Hgb Equivalent aPTT Heparin Protocol 96.2 H D POC Glucose Iron TIBC % Saturation Unsat Iron Binding Ferritin Troponin I High Sens 68.2 H* D Vitamin B12 Folate Blood Type A Positive Antibody Screen NEGATIVE Crossmatch See Detail 01/22/25 01/23/25 01/23/25 20:41 01:29 07:30 MCV MCH MCHC RDW Plt Count MPV Immature Gran % (Auto) Neut % (Auto) Lymph % (Auto) Moore % (Auto) Eos % (Auto) Baso % (Auto) Lymph # (Auto) Moore # (Auto) Eos # (Auto) Baso # (Auto) Abs Immat Gran (auto) Absolute Neuts (auto) Absolute Nucleated RBC Nucleated RBC % (auto) Absolute Retic Percent Retic Immature Retic Fraction Retic Hgb Equivalent aPTT Heparin Protocol POC Glucose 94 88 Iron TIBC % Saturation Unsat Iron Binding Ferritin Troponin I High Sens 49.3 H Vitamin B12 Folate Blood Type Antibody Screen Crossmatch 01/23/25 01/23/25 01/23/25 07:34 11:30 16:11 MCV 88.8 MCH 30.0 MCHC 33.7 RDW 15.0 Plt Count 98 L MPV 11.6 Immature Gran % (Auto) 0.5 H Neut % (Auto) 76.7 H Lymph % (Auto) 7.1 L Moore % (Auto) 11.2 H Eos % (Auto) 4.0 Baso % (Auto) 0.5 Lymph # (Auto) 0.3 L Moore # (Auto) 0.5 Eos # (Auto) 0.2 Baso # (Auto) 0.0 Abs Immat Gran (auto) 0.02 Absolute Neuts (auto) 3.2 Absolute Nucleated RBC 0.000 Nucleated RBC % (auto) 0.0 Absolute Retic 0.061 Percent Retic 2.2 H Immature Retic Fraction 8.4 Retic Hgb Equivalent 31.6 aPTT Heparin Protocol 28.0 L D POC Glucose 74 124 H Iron 47 TIBC 157 L % Saturation 30 Unsat Iron Binding 110 Ferritin 286 H Troponin I High Sens Vitamin B12 741 Folate 8.2 Blood Type Antibody Screen Crossmatch Microbiology Microbiology Results: Microbiology 01/21/25 17:21 Blood Culture - Preliminary Blood - Venous No growth after 24 hours. 01/21/25 17:06 Blood Culture - Preliminary Blood - Venous No growth after 24 hours. Assessment and Plan (1) Severe sepsis: Status: Acute Plan Shereen Taylor is a 34 y/o woman with a PMHx significant for chronic foot ulcers, recent left BKA (Jan [address] Rajput) and PAD who presents with: Severe sepsis secondary to recent left BKA/amputation stump cellulitis and abscess. Patient is on broad-spectrum antibiotics Zosyn and vancomycin Acute pulmonary embolism RLL. WE resumed Heparin per protocol with bolus dosing as it was stopped ON due to A/C ABLA as Subtherapeutic PT this AM Given that surgery will not do a procedure, we'll swutch to renally dosed Eliquis 2.5mg po bid Elevated troponin. Likely type 2, secondary to PE end-stage renal disease. Continue to monitor. Type 2 diabetes mellitus. BG checks before meals and bedtime. Insulin sliding scale. Diabetic diet. Hypertension, likely renovascular. Continue carvedilol and hydralazine as she is significantly hypotensive despite sepsis Acute blood loss anemia likely secondary to chronic renal etiology, Status post 2 unit PRBC History of C. diff. no GI symptoms reported. ESRD. HD TuThSa renal diet Code status: Full DVT prophylaxis: Eliquis renally dosed Patient will need hospitalization for severe sepsis treatment due to left BKA/stump cellulitis and abscess treatment with IV antibiotic therapy This documentation was generated using dictation software; minor spreading or supervisor volunteer services errors may be present. Quality Stroke Does the patient have a stroke diagnosis?: No VTE Prior VTE?: No VTE Risk Level:: Medical - moderate - high VTE Device Contraindication: Treatment Not Indicated VTE Drug Contraindication: N/A - Med Ordered
[2025-01-23 17:47] LABS: PTT Heparin Drip 68.7 SEC (53-77.9)
--- NOTE | 2025-01-23 18:24 | HE.PHANOTE ---
re: emmie Trough returned @ 25.1. Will hold dose until next dialysis session on Sunday. Next trough due 01/26 @1830 to determine dose.
[2025-01-23] MEDS: oxyCODONE HCl ER 10 MG TAB.ER.12H 20 MG PO (20:13)
[2025-01-23 20:17] LABS: Glucose, Whole Blood 118 mg/dL (60-115)
[2025-01-24] VITALS (7 sets, daily range): BP systolic 135–159; BP diastolic 63–96; PULSE 66–74; RESP 18; TEMP 36.1–37; O2SAT 93–98
--- NOTE | 2025-01-24 07:22 | P.PNIM_ITS ---
Subjective Subjective Date of Service: 01/24/25 Interval History: Patient was concerned about chronic pain control-I told the patient that I would like to wean her as we did in prior admissions-patient in agreement Patient complained of catheter site pain-getting a chest x-ray-2 my examination- it was tender, could not appreciate any fluctuance, or induration-site CDI Complains of left-sided upper and lower quadrant pain-we will get an abdominal x-ray Physical Exam 2 Vital Signs: Vital Signs: Last Vital Signs Temp 98.2 F 01/24/25 06:17 Pulse 73 01/24/25 06:17 Resp 18 01/24/25 06:17 BP 150/83 H 01/24/25 06:17 Pulse Ox 96 01/24/25 06:17 O2 Del Method Room Air 01/24/25 06:17 O2 Flow Rate 1 01/23/25 12:00 Oxygen Flow Rate 5 01/21/25 16:47 BMI result Body Mass Index 33.0 Const: General: no acute distress Nutritional Appearance: well nourished Orientation/consciousness: patient oriented x3 Resp: Effort & Inspection: normal respiratory effort, no audible wheezes and no cough Skin: Other: Warm, dry, no rash Neuro: General: patient oriented x3 Extrem: Other: Left BKA stump with normal postoperative changes. Skin flaps are clean without skin necrosis or significant erythema. Normal swelling noted at the lower flap without evidence of an abscess at this time. Sutures remain intact without discharge. Of note no compressive dressing is in place at this time. Objective Data Active Medications Acetaminophen (Acetaminophen 325 Mg Tablet) 975 mg PO Q6H PRN PRN Reason: Pain, Mild 1-3,fever,headache Albuterol Sulfate (Albuterol Sulfate 90 Mcg 8 Gm Inhaler) 2 puff INHALE Q6H PRN PRN Reason: Wheezing Amlodipine Besylate (Amlodipine Besylate 2.5 Mg Tablet) 7.5 mg PO BEDTIME [facility]; Protocol Last Admin: 01/23/25 20:13 Dose: 7.5 mg Documented By: KELLY Apixaban (Apixaban 2.5 Mg Tablet) 2.5 mg PO BID [facility] Last Admin: 01/23/25 20:13 Dose: 2.5 mg Documented By: KELLY Baclofen (Baclofen 10 Mg Tablet) 10 mg PO QID [facility] Last Admin: 01/23/25 20:13 Dose: 10 mg Documented By: KELLY Calcium Carbonate (Calcium Carbonate 750 Mg Tab.Chew) 375 mg PO TIDWM PRN PRN Reason: Acid Reflux Carvedilol (Carvedilol 12.5 Mg Tablet) 12.5 mg PO BID [facility]; Protocol Last Admin: 01/23/25 20:13 Dose: 12.5 mg Documented By: KELLY Dextrose (Dextrose 50 % 25 Gm/50 Ml Syringe) 25 gm IVPUSH Q15M PRN; Protocol PRN Reason: per Hypoglycemia Standing Ord. Diphenhydramine HCl (Diphenhydramine Hcl 50 Mg/Ml Vial) 12.5 mg IVPUSH Q6H PRN PRN Reason: Itching Last Admin: 01/24/25 05:57 Dose: 12.5 mg Documented By: KELLY Glucose (Glucose Gel 15 Gm Gel..Gram.) 15 gm PO Q15M PRN; Protocol PRN Reason: per Hypoglycemia Standing Ord. Hydralazine HCl (Hydralazine Hcl 50 Mg Tablet) 50 mg PO TID [facility]; Protocol Last Admin: 01/23/25 20:13 Dose: 50 mg Documented By: KELLY Hydromorphone HCl (Hydromorphone Hcl 1 Mg/Ml Syringe) 1 mg IVPUSH Q3H PRN; Protocol PRN Reason: Pain, Severe (Pain Scale 7-10) Last Admin: 01/24/25 05:58 Dose: 1 mg Documented By: KELLY Piperacillin Sod/Tazobactam (Sod 2.25 gm/ Sodium Chloride) 50 mls @ 100 mls/hr IV Q8H [facility] Last Admin: 01/24/25 05:58 Dose: 100 mls/hr Documented By: KELLY Vancomycin HCl 500 mg/ Sodium (Chloride) 110 mls @ 110 mls/hr IV ONCE ONE Stop: 01/23/25 19:29 Insulin Human Lispro (Insulin Lispro 100 Unit/Ml 3 Ml Vial) 0 unit SUBCUT QIDACHS [facility]; Protocol Last Admin: 01/23/25 20:11 Dose: Not Given Documented By: KELLY Non-Admin Reason: No Insulin Coverage Lidocaine (Lidocaine 4 % Patch Adh..Patch) 2 patch TRANSDERMA DAILY [facility]; Protocol Last Admin: 01/23/25 10:34 Dose: Not Given Documented By: LARRY Non-Admin Reason: Patient Refused Melatonin (Melatonin 3 Mg Tablet) 6 mg PO BEDTIME PRN PRN Reason: Insomnia Oxycodone HCl (Oxycodone Hcl Er 10 Mg Tab.Er.12h) 20 mg PO BID [facility] Last Admin: 01/23/25 20:13 Dose: 20 mg Documented By: KELLY Pantoprazole Sodium (Pantoprazole Sodium 40 Mg/10 Ml Vial) 40 mg IVPUSH BID@0630,1630 [facility] Last Admin: 01/24/25 05:58 Dose: 40 mg Documented By: KELLY Pharmacy Consult (Consult Rx Vancomycin Dosing) 1 each MISCELLANE DAILY PRN PRN Reason: Consult order Prochlorperazine Edisylate (Prochlorperazine Edisylate 10 Mg/2 Ml Vial) 5 mg IVPUSH Q6H PRN PRN Reason: Nausea and Vomiting Last Admin: 01/23/25 05:25 Dose: 5 mg Documented By: BERNABE Sodium Chloride (0.9 % Sodium Chloride Flush 3 Ml Syringe) 3 ml IVFLUSH QSHIFT [facility] Last Admin: 01/23/25 23:23 Dose: 3 ml Documented By: KELLY Labs 01/24/25 08:22 01/24/25 08:22 Labs: Laboratory Results - last 24 hr 01/22/25 01/23/25 01/23/25 00:17 07:30 07:34 MCV 88.8 MCH 30.0 MCHC 33.7 RDW 15.0 Plt Count 98 L MPV 11.6 Immature Gran % (Auto) 0.5 H Neut % (Auto) 76.7 H Lymph % (Auto) 7.1 L [place] % (Auto) 11.2 H Eos % (Auto) 4.0 Baso % (Auto) 0.5 Lymph # (Auto) 0.3 L [place] # (Auto) 0.5 Eos # (Auto) 0.2 Baso # (Auto) 0.0 Abs Immat Gran (auto) 0.02 Absolute Neuts (auto) 3.2 Absolute Nucleated RBC 0.000 Nucleated RBC % (auto) 0.0 Absolute Retic 0.061 Percent Retic 2.2 H Immature Retic Fraction 8.4 Retic Hgb Equivalent 31.6 aPTT Heparin Protocol 28.0 L D POC Glucose 88 Iron 47 TIBC 157 L % Saturation 30 Unsat Iron Binding 110 Ferritin 286 H Vitamin B12 741 Folate 8.2 Random Vancomycin Crossmatch See Detail 01/23/25 01/23/25 01/23/25 11:30 16:11 17:13 MCV MCH MCHC RDW Plt Count MPV Immature Gran % (Auto) Neut % (Auto) Lymph % (Auto) [place] % (Auto) Eos % (Auto) Baso % (Auto) Lymph # (Auto) [place] # (Auto) Eos # (Auto) Baso # (Auto) Abs Immat Gran (auto) Absolute Neuts (auto) Absolute Nucleated RBC Nucleated RBC % (auto) Absolute Retic Percent Retic Immature Retic Fraction Retic Hgb Equivalent aPTT Heparin Protocol 68.7 D POC Glucose 74 124 H Iron TIBC % Saturation Unsat Iron Binding Ferritin Vitamin B12 Folate Random Vancomycin 25.1 H* Crossmatch 01/23/25 20:07 MCV MCH MCHC RDW Plt Count MPV Immature Gran % (Auto) Neut % (Auto) Lymph % (Auto) [place] % (Auto) Eos % (Auto) Baso % (Auto) Lymph # (Auto) [place] # (Auto) Eos # (Auto) Baso # (Auto) Abs Immat Gran (auto) Absolute Neuts (auto) Absolute Nucleated RBC Nucleated RBC % (auto) Absolute Retic Percent Retic Immature Retic Fraction Retic Hgb Equivalent aPTT Heparin Protocol POC Glucose 118 H Iron TIBC % Saturation Unsat Iron Binding Ferritin Vitamin B12 Folate Random Vancomycin Crossmatch Microbiology Microbiology Results: Microbiology 01/21/25 17:21 Blood Culture - Preliminary Blood - Venous No growth after 48 hours. 01/21/25 17:06 Blood Culture - Preliminary Blood - Venous No growth after 48 hours. Assessment and Plan (1) Severe sepsis: Status: Acute Plan Shereen Taylor is a 34 y/o woman with a PMHx significant for chronic foot ulcers, recent left BKA (Jan [address] Rajput) and PAD who presents with: Severe sepsis secondary to recent left BKA/amputation stump cellulitis and abscess. Deescalate abx to Augmentin - responding well Surgery onboard - no surgical mx, tehy said reevaluate on Sunday per Pt , hence the hold up c/o Port site pain - no abscess on CXR , she is on abx C/o L abd pain - likely opioid induced constipation, aggressive bowel meds , prior C diff , KUB xray Chronic pain syndrome- In pt Addiction med consulted - stated its not something available in pt, she needs to seek OP mx, Pt agreeable to weaning opioids every day Itching-patient agreeable to discontinuing IV Benadryl and starting sublingual Benadryl Acute pulmonary embolism RLL. Eliquis renally dosed Elevated troponin. Likely type 2, secondary to PE end-stage renal disease. Continue to monitor. Type 2 diabetes mellitus. BG checks before meals and bedtime. Insulin sliding scale. Diabetic diet. Hypertension, likely renovascular. Continue carvedilol and hydralazine as she is significantly hypertensive despite sepsis Acute blood loss anemia likely secondary to chronic renal etiology, Status post 3 unit PRBC, s/p EPO History of C. diff. no GI symptoms reported. ESRD. ESRD: usu TTS but as in patient for MWF schedule renal diet Code status: Full DVT prophylaxis: Eliquis renally dosed Patient is otherwise medically optimized, per patient-surgery stated that she will be evaluated on Sunday and hence we will likely discharge her on Sunday post surgical input This documentation was generated using dictation software; minor spreading or pres[employer] errors may be present. Quality Stroke Does the patient have a stroke diagnosis?: No VTE Prior VTE?: No VTE Risk Level:: Medical - moderate - high VTE Device Contraindication: Treatment Not Indicated VTE Drug Contraindication: N/A - Med Ordered
[2025-01-24 08:47] LABS: MANUAL DIFF FLAG NO
[2025-01-24 08:56] LABS: Glucose, Whole Blood 83 mg/dL (60-115)
[2025-01-24 08:56] LABS: Hematocrit 26.1 % (37.0-47.0); Hemoglobin 8.7 g/dl (12.0-16.0); Imm Gran Abs Auto 0.04 X10*3/uL (0.00-0.03); Imm Gran Pct Auto 0.9 % (0.0-0.4); Lymphocytes Absolute Auto 0.6 X10*3/uL (1.2-4.9); Mean Corpuscular HGB Conc 33.3 g/dl (31.0-35.0); Mean Corpuscular Hemoglobin 30.1 pg (27.0-33.0); Mean Corpuscular Volume 90.3 fL (80.0-98.0); NRBC Abs Auto 0.000 X10*3/uL (0.0-0.012); NRBC Pct Auto 0.0 /100WBC (0.0-0.2); Platelet Count 117 X10*3/uL (160-400); Red Blood Count 2.89 X10*6/uL (4.20-5.50); White Blood Count 4.7 X10*3/uL (4.8-10.8)
[2025-01-24 09:22] LABS: Alanine Aminotransferase 12 U/L (0-31); Albumin Level 3.4 g/dL (3.5-5.0); Alkaline Phosphatase 192 U/L (39-117); Anion Gap 17 (12-20); Aspartate Amino Transferase 25 U/L (5-31); Blood Urea Nitrogen 26 mg/dL (9-16); Calcium 8.6 mg/dL (8.4-10.2); Carbon Dioxide 22 mmol/L (22-29); Chloride 101 mmol/L (96-108); Creatinine Clr Calc Pharmacy 11.6; Estimated Glomerular Filt Rate 7; Potassium 4.4 mmol/L (3.3-5.1); Sodium 136 mmol/L (135-145); Total Protein 6.7 g/dL (6.5-8.0)
[2025-01-24] MEDS: oxyCODONE HCl ER 10 MG TAB.ER.12H 20 MG PO (09:29)
[2025-01-24] MEDS: 0.9 % Sodium Chloride Flush 3 ML SYRINGE IVFLUSH ×2 (09:29→16:52)
[2025-01-24 11:01] LABS: Glucose, Whole Blood 89 mg/dL (60-115)
[2025-01-24 16:36] LABS: Glucose, Whole Blood 113 mg/dL (60-115)
[2025-01-24 20:12] LABS: Glucose, Whole Blood 124 mg/dL (60-115)
[2025-01-25] VITALS (9 sets, daily range): BP systolic 135–230; BP diastolic 69–111; PULSE 70–76; RESP 16–18; TEMP 33.7–36.4; O2SAT 92–98
--- NOTE | 2025-01-25 07:10 | PC.NURSE ---
Assumed care of pt 2300; BP found to be elevated at 0320 196/100. Dr Noonan notified. Dose of 0900 carvedilol given per provider order. BP rechecked at 0607, found to be 230/105. Pt awake, following commands, Sinus rhythm BBB 72bpm. Dr. Noonan notified; 10mg IV labetalol ordered stat and administered. Pt refused PO Hydralizine and Amlodipine as provider ordered these meds to be given as pt had missed these doses night prior. Pt educated on risks of refusing these blood pressure medications with a critically high BP. Verbalizes understanding. Continuos monitoring of pt on tele in effect.
[2025-01-25 07:45] LABS: Glucose, Whole Blood 135 mg/dL (60-115)
--- NOTE | 2025-01-25 08:00 | PC.NURSE ---
Addendum entered by Lisa Manriquez RN 01/25/25 18:35: At 1800, Pt's POC 79; MD Marcelino made aware; D5NS @100ml/hr ordered and started. POC q4hr to be taken. Addendum entered by Lisa Manriquez RN 01/25/25 14:27: At 1315 RN to assess pt's status, pt appeared to be having jerky body movements, eyes fluttering, and excessive mouth drooling; minimal responsive and only responsive to pain. MD Marcelino notified and at the bedside to assess patient. At 1321, Nalaxone Hydrochloride 0.4 IV administered with a repeated dose in 15 minutes (1337); Valium 10 mg IV given as well per MD's order. Pt NPO and seizure precautions applied. EEG, and MRI ordered. Continues Pulse ox on, O2 SATs 96-100%. Pt remains lethargic. ICU/ Neuro consulted. Original Note: Assumed care at 0700. This RN called to the bedside by OPERATIONS SUPPORT REPRESENTATIVE for pt refusing vital signs, POC and labs taken; At 0730, upon assessing pt and trying to educate pt on the importance of having labs checked, pt appeared lethargic, difficult to arouse, shacking, moaning, and not answering any questions or following any commands. VS T.92.7 rectal temp, BP 198/111, O2 96 RA, HR 70, R18. Pt placed on a florencia hugger. smeller and MD Marcelino made aware and at the bedside to assess pt. ABGs,and EKG taken per MDs order. Pt remains lethargic; Phlebotomy at the bedside to draw labs and STAT CTs ordered and taken. ABXs and Magnesium IV administered. Safety and fall precautions maintained, camera in the room.
--- NOTE | 2025-01-25 08:06 | ECG_ITS ---
Test Reason : ams Blood Pressure : */* mmHG Vent. Rate : 73 BPM Atrial Rate : 73 BPM P-R Int : 180 ms QRS Dur : 168 ms QT Int : 522 ms P-R-T Axes : 39 -27 13 degrees QTcB Int : 575 ms Normal sinus rhythm Possible Left atrial enlargement Right bundle branch block Abnormal ECG When compared with ECG of 21-Jan-2025 16:54, Vent. rate has decreased by 62 bpm T wave inversion no longer evident in Anterior leads Referred By: Padmini Marcelino Electronically Signed By: JASKARAN COOL
[2025-01-25 08:11] LABS: ABG HCO3 22 mmol/L (22-26); ABG O2 % Saturation 98.0 %
[2025-01-25 08:29] LABS: MANUAL DIFF FLAG NO
[2025-01-25 08:32] LABS: Hematocrit 33.4 % (37.0-47.0); Hemoglobin 11.1 g/dl (12.0-16.0); Imm Gran Abs Auto 0.03 X10*3/uL (0.00-0.03); Imm Gran Pct Auto 0.5 % (0.0-0.4); Lymphocytes Absolute Auto 0.5 X10*3/uL (1.2-4.9); Mean Corpuscular HGB Conc 33.2 g/dl (31.0-35.0); Mean Corpuscular Hemoglobin 30.3 pg (27.0-33.0); Mean Corpuscular Volume 91.3 fL (80.0-98.0); NRBC Abs Auto 0.000 X10*3/uL (0.0-0.012); NRBC Pct Auto 0.0 /100WBC (0.0-0.2); Platelet Count 133 X10*3/uL (160-400); Red Blood Count 3.66 X10*6/uL (4.20-5.50); White Blood Count 5.5 X10*3/uL (4.8-10.8)
[2025-01-25 08:47] LABS: Ammonia 19 umol/L (13-55)
--- NOTE | 2025-01-25 08:51 | P.PNIM_ITS ---
Subjective Subjective Date of Service: 01/25/25 Interval History: I am using medical dictation and they could be errors, please feel free to reach out if any concerns or errors which can escaped my proof reading. Patient had a rather eventful morning Since 07:00 I was notified of the patient being old noted her usual baseline , hypothermic, GCS of 5 I immediately went to see the patient I was initially concerned of sepsis and had brought in the patient's antibiotics, however no white count, no venous lactate and workup for sepsis was negative I went through a broad set of [id number] scanned her from head to the bilateral stumps -head CT, CTA PE protocol, CT abdomen pelvis, bilateral stumps and thus far no acute findings I checked for ammonia which was negative Checked for M UD PI LeS of anion gap metabolic acidosis thus far unrevealing Checked for any subclinical seizures-ordered an MRI brain with contrast, consulted neurology likely believe she has toxic metabolic encephalopathy from severe hypotension However she has some myoclonic jerks hence ordered EEG which will be done tomorrow . For possible seizure of unclear etiology I have initiated Keppra loading dose with maintenance dose and Valium p.r.n. Consulted nephrology who stated that her beta hydroxybutyrate and anion gap metabolic acidosis in a patient with ESRD is not significant and not indicated to start bicarb ABG unremarkable GCS score 5 eye opening to painful stimuli, ICU consulted likely believe as long as she is protecting airway, we will continue current management no treatment to be given Given the concern of narcotic overdose, although she has not had any narcotics since evening prior (11/15/2024), which is unusual from her baseline although I have been extensively weaning down narcotics, I have given her Narcan x2 with some improvement but not significant. Blood pressure is significantly elevated, with response to IV hydralazine Review of Systems Review of Systems: Yes Unobtainable due to mental condition and Unobtainable due to mental status Physical Exam 2 Exam: Exam: * General: Appears ill, unresponsive, intermittently protecting airway. * Neurologic: GCS 5 (E1 V1 M2); no eye opening; no verbal response; withdraws to pain; intermittent tonic/myoclonic jerks; pupils ~0.4 cm, equal, not pinpoint. * Respiratory: On room air , not hypoxic * Extremities: Bilateral lower limb stumps well-healed; right/left foot fracture present (awaiting fixation). Vital Signs: Vital Signs: Last Vital Signs Temp 92.7 F L 01/25/25 07:45 Pulse 70 01/25/25 07:45 Resp 18 01/25/25 07:45 BP 198/111 H 01/25/25 07:45 Pulse Ox 96 01/25/25 07:45 O2 Del Method Room Air 01/25/25 07:45 O2 Flow Rate 1 01/23/25 12:00 Oxygen Flow Rate 5 01/21/25 16:47 BMI result Body Mass Index 33.0 Objective Data Active Medications Acetaminophen (Acetaminophen 325 Mg Tablet) 975 mg PO Q6H [facility] Last Admin: 01/25/25 03:30 Dose: Not Given Documented By: JESS Non-Admin Reason: Patient Refused Albuterol Sulfate (Albuterol Sulfate 90 Mcg 8 Gm Inhaler) 2 puff INHALE Q6H PRN PRN Reason: Wheezing Amlodipine Besylate (Amlodipine Besylate 2.5 Mg Tablet) 7.5 mg PO BEDTIME [facility]; Protocol Last Admin: 01/24/25 21:08 Dose: Not Given Documented By: KELLY Non-Admin Reason: Patient Refused Amoxicillin/Clavulanate Potassium (Amoxicillin/Potassium Clav 500 Mg Tablet) 500 mg PO Q12H [facility] Last Admin: 01/24/25 21:08 Dose: Not Given Documented By: KELLY Non-Admin Reason: Patient Refused Apixaban (Apixaban 2.5 Mg Tablet) 2.5 mg PO BID [facility] Last Admin: 01/24/25 21:08 Dose: Not Given Documented By: KELLY Non-Admin Reason: Patient Refused Baclofen (Baclofen 10 Mg Tablet) 10 mg PO QID [facility] Last Admin: 01/24/25 21:08 Dose: Not Given Documented By: KELLY Non-Admin Reason: Patient Refused Calcium Carbonate (Calcium Carbonate 750 Mg Tab.Chew) 375 mg PO TIDWM PRN PRN Reason: Acid Reflux Carvedilol (Carvedilol 12.5 Mg Tablet) 12.5 mg PO BID [facility]; Protocol Last Admin: 01/25/25 03:50 Dose: 12.5 mg Documented By: JESS Dextrose (Dextrose 50 % 25 Gm/50 Ml Syringe) 25 gm IVPUSH Q15M PRN; Protocol PRN Reason: per Hypoglycemia Standing Ord. Diphenhydramine HCl (Diphenhydramine Hcl 12.5 Mg/5 Ml Liquid) 12.5 mg PO Q6H PRN PRN Reason: Itching Glucose (Glucose Gel 15 Gm Gel..Gram.) 15 gm PO Q15M PRN; Protocol PRN Reason: per Hypoglycemia Standing Ord. Hydralazine HCl (Hydralazine Hcl 50 Mg Tablet) 50 mg PO TID [facility]; Protocol Last Admin: 01/24/25 21:08 Dose: Not Given Documented By: KELLY Non-Admin Reason: Patient Refused Hydromorphone HCl (Hydromorphone Hcl 1 Mg/Ml Syringe) 0.5 mg IVPUSH Q6H PRN; Protocol PRN Reason: Pain, Severe (Pain Scale 7-10) Piperacillin Sod/Tazobactam (Sod 2.25 gm/ Sodium Chloride) 50 mls @ 100 mls/hr IV Q8H [facility] Insulin Human Lispro (Insulin Lispro 100 Unit/Ml 3 Ml Vial) 0 unit SUBCUT QIDACHS [facility]; Protocol Last Admin: 01/25/25 07:47 Dose: Not Given Documented By: LAILA Non-Admin Reason: No Insulin Coverage Lidocaine (Lidocaine 4 % Patch Adh..Patch) 2 patch TRANSDERMA DAILY [facility]; Protocol Last Admin: 01/24/25 09:30 Dose: Not Given Documented By: LAILA Non-Admin Reason: Patient Refused Melatonin (Melatonin 3 Mg Tablet) 6 mg PO BEDTIME PRN PRN Reason: Insomnia Oxycodone HCl (Oxycodone Hcl Er 10 Mg Tab.Er.12h) 20 mg PO BID [facility] Last Admin: 01/24/25 21:08 Dose: Not Given Documented By: KELLY Non-Admin Reason: Patient Refused Pantoprazole Sodium (Pantoprazole Sodium 40 Mg/10 Ml Vial) 40 mg IVPUSH BID@0630,1630 [facility] Last Admin: 01/25/25 05:57 Dose: 40 mg Documented By: JESS Pharmacy Consult (Consult Rx Vancomycin Dosing) 1 each MISCELLANE DAILY PRN PRN Reason: Consult order Prochlorperazine Edisylate (Prochlorperazine Edisylate 10 Mg/2 Ml Vial) 5 mg IVPUSH Q6H PRN PRN Reason: Nausea and Vomiting Last Admin: 01/25/25 04:02 Dose: 5 mg Documented By: JESS Sodium Chloride (0.9 % Sodium Chloride Flush 3 Ml Syringe) 3 ml IVFLUSH QSHIFT [facility] Last Admin: 01/25/25 01:07 Dose: Not Given Documented By: JESS Non-Admin Reason: Patient Refused Labs 01/25/25 08:18 01/25/25 17:23 Labs: Laboratory Results - last 24 hr 01/24/25 01/24/25 01/24/25 07:53 08:22 10:55 MCV 90.3 MCH 30.1 MCHC 33.3 RDW 15.8 Plt Count 117 L MPV 12.2 Immature Gran % (Auto) 0.9 H Neut % (Auto) 64.4 Lymph % (Auto) 13.0 L [place] % (Auto) 16.0 H Eos % (Auto) 5.1 H Baso % (Auto) 0.6 Lymph # (Auto) 0.6 L [place] # (Auto) 0.8 Eos # (Auto) 0.2 Baso # (Auto) 0.0 Abs Immat Gran (auto) 0.04 H Absolute Neuts (auto) 3.0 Absolute Nucleated RBC 0.000 Nucleated RBC % (auto) 0.0 O2 Saturation ABG pH at Pt Temp ABG pCO2 at Pt Temp ABG pO2 at Pt Temp ABG HCO3 ABG Base Excess (Actual) Anion Gap 17 Estim Creat Clear Calc 11.6 Estimated GFR 7 POC Glucose 83 89 Random Glucose 89 Calcium 8.6 D Total Bilirubin 1.0 AST 25 ALT 12 Alkaline Phosphatase 192 H Ammonia Total Protein 6.7 Albumin 3.4 L 01/24/25 01/24/25 01/25/25 16:33 20:07 07:33 MCV MCH MCHC RDW Plt Count MPV Immature Gran % (Auto) Neut % (Auto) Lymph % (Auto) [place] % (Auto) Eos % (Auto) Baso % (Auto) Lymph # (Auto) [place] # (Auto) Eos # (Auto) Baso # (Auto) Abs Immat Gran (auto) Absolute Neuts (auto) Absolute Nucleated RBC Nucleated RBC % (auto) O2 Saturation ABG pH at Pt Temp ABG pCO2 at Pt Temp ABG pO2 at Pt Temp ABG HCO3 ABG Base Excess (Actual) Anion Gap Estim Creat Clear Calc Estimated GFR POC Glucose 113 124 H 135 H Random Glucose Calcium Total Bilirubin AST ALT Alkaline Phosphatase Ammonia Total Protein Albumin 01/25/25 01/25/25 08:08 08:18 MCV MCH MCHC RDW Plt Count MPV Immature Gran % (Auto) Neut % (Auto) Lymph % (Auto) [place] % (Auto) Eos % (Auto) Baso % (Auto) Lymph # (Auto) [place] # (Auto) Eos # (Auto) Baso # (Auto) Abs Immat Gran (auto) Absolute Neuts (auto) Absolute Nucleated RBC Nucleated RBC % (auto) O2 Saturation 98.0 ABG pH at Pt Temp 7.38 ABG pCO2 at Pt Temp 36 ABG pO2 at Pt Temp 101 ABG HCO3 22 ABG Base Excess (Actual) -2.3 Anion Gap Estim Creat Clear Calc Estimated GFR POC Glucose Random Glucose Calcium Total Bilirubin AST ALT Alkaline Phosphatase Ammonia 19 Total Protein Albumin Assessment and Plan (1) Severe sepsis: Status: Acute Plan Shereen Taylor is a 34 y/o woman with a PMHx significant for chronic foot ulcers, recent left BKA (Jan [address] Rajput) and PAD who presents with: Acute AMS Possibly toxic metabolic encephalopathy from PRESS I am using medical dictation and they could be errors, please feel free to reach out if any concerns or errors which can escaped my proof reading. Patient had a rather eventful morning Since 07:00 I was notified of the patient being old noted her usual baseline , hypothermic, GCS of 5 I immediately went to see the patient I was initially concerned of sepsis and had brought in the patient's antibiotics, however no white count, no venous lactate and workup for sepsis was negative I went through a broad set of differentials-sepsis, seizure, encephalopathy, anemia, ammonia-castellon scanned her from head to the bilateral stumps -head CT, CTA PE protocol, CT abdomen pelvis, bilateral stumps and thus far no acute findings I checked for ammonia which was negative Checked for M UD PI LeS of anion gap metabolic acidosis thus far unrevealing Checked for any subclinical seizures-ordered an MRI brain with contrast, consulted neurology likely believe she has toxic metabolic encephalopathy from severe hypotension However she has some myoclonic jerks hence ordered EEG which will be done tomorrow . For possible seizure of unclear etiology I have initiated Keppra loading dose with maintenance dose and Valium p.r.n. Consulted nephrology who stated that her beta hydroxybutyrate and anion gap metabolic acidosis in a patient with ESRD is not significant and not indicated to start bicarb ABG unremarkable GCS score 5 eye opening to painful stimuli, ICU consulted likely believe as long as she is protecting airway, we will continue current management no treatment to be given Given the concern of narcotic overdose, although she has not had any narcotics since evening prior (11/15/2024), which is unusual from her baseline although I have been extensively weaning down narcotics, I have given her Narcan x2 with some improvement but not significant. Blood pressure is significantly elevated (SBP 230S), with response to IV hydralazine Severe sepsis POA Sepsis unlikely as she is already on antibiotics, venous lactate negative, blood cultures unremarkable, no leukocytosis, fluids limited given ESRD and anuria Castellon scan from head to bilateral stumps unremarkable for any acute pathology Continue current antibiotics Port site CDI Chronic pain syndrome- hold off on any narcotics, patient is receive Valium p.r.n. for subclinical seizures only that is after she has been altered for more than half a day and seizure was on the differential Itching-she always was requesting Benadryl, but we will DC given somnolence Acute pulmonary embolism RLL. , repeat CTA negative for any expansion, currently not hypoxic on room air able to protect airway Continue Eliquis renally dosed Elevated troponin. Type 2 PA, Resolved Type 2 diabetes mellitus. 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 Continue carvedilol and hydralazine as she is significantly hypertensive despite sepsis Acute blood loss anemia likely secondary to chronic renal etiology, Status post 3 unit PRBC, s/p EPO HEMOGLOBIN 11.1 TODAY History of C. diff. no GI symptoms reported. ESRD. ESRD: usu TTS but as in patient for MWF schedule renal diet Nephrology consulted does not need urgent dialysis per team-she will get dialysis per her usual session tomorrow Anion gap metabolic acidosis and elevated beta hydroxybutyrate , per nephro not relevant in a patient with ESRD Code status: Full DVT prophylaxis: Eliquis renally dosed Patient will need continued hospitalization given need for EEG and to check etiology of AMS This documentation was generated using dictation software; minor spreading or charge aide errors may be present. Have consulted multiple specialties Nephrology, Neurology, ICU and my colleagues for her management Spent over 2 hours attending to the patient 3 times today overall each lasting Quality Stroke Does the patient have a stroke diagnosis?: No VTE Prior VTE?: No VTE Risk Level:: Medical - moderate - high VTE Device Contraindication: Treatment Not Indicated VTE Drug Contraindication: N/A - Med Ordered
[2025-01-25 09:01] LABS: Alanine Aminotransferase 7 U/L (0-31); Albumin Level 3.8 g/dL (3.5-5.0); Alkaline Phosphatase 210 U/L (39-117); Anion Gap 23 (12-20); Aspartate Amino Transferase 20 U/L (5-31); Blood Urea Nitrogen 31 mg/dL (9-16); Calcium 9.1 mg/dL (8.4-10.2); Carbon Dioxide 18 mmol/L (22-29); Chloride 99 mmol/L (96-108); Creatinine Clr Calc Pharmacy 9.5; Estimated Glomerular Filt Rate 6; Magnesium 2.5 mg/dL (1.6-2.6); Potassium 4.6 mmol/L (3.3-5.1); Sodium 135 mmol/L (135-145); Total Protein 7.5 g/dL (6.5-8.0); Troponin-I High Sensitivity 11.7 ng/L (<3.5-17.0)
[2025-01-25] MEDS: iohexoL 350 MG/ML 100 ML INFUS..BTL IV (09:49)
[2025-01-25] MEDS: 0.9 % Sodium Chloride Flush 3 ML SYRINGE IVFLUSH ×2 (10:10→15:26)
[2025-01-25] MEDS: Magnesium Sulfate/H2O 2 GM/50 ML PIGGYBACK IV (10:43)
[2025-01-25 11:04] LABS: Glucose, Whole Blood 116 mg/dL (60-115)
--- NOTE | 2025-01-25 13:24 | P.PNGS_ITS ---
Subjective Subjective Date of Service: 01/25/25 Interval history: Has been very drowsy all day Also hypothermic earlier this morning No fever Physical Exam 2 Vital Signs: Vital Signs: Last Vital Signs Temp 96.9 F 01/25/25 10:44 Pulse 72 01/25/25 10:44 Resp 18 01/25/25 10:44 BP 135/69 01/25/25 10:44 Pulse Ox 97 01/25/25 10:44 O2 Del Method Room Air 01/25/25 10:44 O2 Flow Rate 1 01/23/25 12:00 Oxygen Flow Rate 5 01/21/25 16:47 BMI result Body Mass Index 33.0 Const: Other: Very drowsy General: no acute distress Resp: Effort & Inspection: normal respiratory effort Cardio: Rate: regular rate GI: Palpation (GI): Soft to palpation and not firm Extrem: Other: Left BKA stump clean, dry, no evidence of infection, sutures in place Objective Data Active Medications Acetaminophen (Acetaminophen 325 Mg Tablet) 975 mg PO Q6H [facility] Last Admin: 01/25/25 10:11 Dose: Not Given Documented By: LAILA Non-Admin Reason: Patient Condition Contraindication Comments: MD aware Albuterol Sulfate (Albuterol Sulfate 90 Mcg 8 Gm Inhaler) 2 puff INHALE Q6H PRN PRN Reason: Wheezing Amlodipine Besylate (Amlodipine Besylate 2.5 Mg Tablet) 7.5 mg PO BEDTIME [facility]; Protocol Last Admin: 01/24/25 21:08 Dose: Not Given Documented By: KELLY Non-Admin Reason: Patient Refused Apixaban (Apixaban 2.5 Mg Tablet) 2.5 mg PO BID [facility] Last Admin: 01/25/25 10:11 Dose: Not Given Documented By: LAILA Non-Admin Reason: Patient Condition Contraindication Baclofen (Baclofen 10 Mg Tablet) 10 mg PO QID [facility] Last Admin: 01/25/25 10:12 Dose: Not Given Documented By: LAILA Non-Admin Reason: Patient Condition Contraindication Calcium Carbonate (Calcium Carbonate 750 Mg Tab.Chew) 375 mg PO TIDWM PRN PRN Reason: Acid Reflux Carvedilol (Carvedilol 12.5 Mg Tablet) 12.5 mg PO BID [facility]; Protocol Last Admin: 01/25/25 03:50 Dose: 12.5 mg Documented By: JESS Dextrose (Dextrose 50 % 25 Gm/50 Ml Syringe) 25 gm IVPUSH Q15M PRN; Protocol PRN Reason: per Hypoglycemia Standing Ord. Diphenhydramine HCl (Diphenhydramine Hcl 12.5 Mg/5 Ml Liquid) 12.5 mg PO Q6H PRN PRN Reason: Itching Glucose (Glucose Gel 15 Gm Gel..Gram.) 15 gm PO Q15M PRN; Protocol PRN Reason: per Hypoglycemia Standing Ord. Hydralazine HCl (Hydralazine Hcl 50 Mg Tablet) 50 mg PO TID [facility]; Protocol Last Admin: 01/25/25 10:12 Dose: Not Given Documented By: LAILA Non-Admin Reason: Patient Condition Contraindication Comments: MD roxana Hydralazine HCl (Hydralazine Hcl 20 Mg/Ml Vial) 5 mg IVPUSH Q6H PRN; Protocol PRN Reason: SBP > 160 Hydromorphone HCl (Hydromorphone Hcl 1 Mg/Ml Syringe) 0.5 mg IVPUSH Q6H PRN; Protocol PRN Reason: Pain, Severe (Pain Scale 7-10) Insulin Human Lispro (Insulin Lispro 100 Unit/Ml 3 Ml Vial) 0 unit SUBCUT QIDACHS [facility]; Protocol Last Admin: 01/25/25 11:22 Dose: Not Given Documented By: LAILA Non-Admin Reason: No Insulin Coverage Lidocaine (Lidocaine 4 % Patch Adh..Patch) 2 patch TRANSDERMA DAILY [facility]; Protocol Last Admin: 01/25/25 10:01 Dose: Not Given Documented By: LAILA Non-Admin Reason: Patient Refused Melatonin (Melatonin 3 Mg Tablet) 6 mg PO BEDTIME PRN PRN Reason: Insomnia Oxycodone HCl (Oxycodone Hcl Er 10 Mg Tab.Er.12h) 10 mg PO BID [facility] Pantoprazole Sodium (Pantoprazole Sodium 40 Mg/10 Ml Vial) 40 mg IVPUSH BID@0630,1630 [facility] Last Admin: 01/25/25 05:57 Dose: 40 mg Documented By: JESS Prochlorperazine Edisylate (Prochlorperazine Edisylate 10 Mg/2 Ml Vial) 5 mg IVPUSH Q6H PRN PRN Reason: Nausea and Vomiting Last Admin: 01/25/25 04:02 Dose: 5 mg Documented By: JESS Sodium Chloride (0.9 % Sodium Chloride Flush 3 Ml Syringe) [facility] Last Admin: 01/25/25 10:10 Dose: 3 ml Documented By: LAILA Labs 01/25/25 08:18 01/25/25 08:18 Labs: Laboratory Results - last 24 hr 01/24/25 01/24/25 01/25/25 16:33 20:07 07:33 MCV MCH MCHC RDW Plt Count MPV Immature Gran % (Auto) Neut % (Auto) Lymph % (Auto) [place] % (Auto) Eos % (Auto) Baso % (Auto) Lymph # (Auto) [place] # (Auto) Eos # (Auto) Baso # (Auto) Abs Immat Gran (auto) Absolute Neuts (auto) Absolute Nucleated RBC Nucleated RBC % (auto) O2 Saturation ABG pH at Pt Temp ABG pCO2 at Pt Temp ABG pO2 at Pt Temp ABG HCO3 ABG Base Excess (Actual) Anion Gap Estim Creat Clear Calc Estimated GFR POC Glucose 113 124 H 135 H Random Glucose Lactic Acid Calcium Magnesium Total Bilirubin AST ALT Alkaline Phosphatase Ammonia Troponin I High Sens Total Protein Albumin Random Vancomycin 01/25/25 01/25/25 01/25/25 08:08 08:18 08:18 MCV 91.3 Cancelled MCH 30.3 MCHC RDW Plt Count MPV Immature Gran % (Auto) Neut % (Auto) Lymph % (Auto) [place] % (Auto) Eos % (Auto) Baso % (Auto) Lymph # (Auto) [place] # (Auto) Eos # (Auto) Baso # (Auto) Abs Immat Gran (auto) Absolute Neuts (auto) Absolute Nucleated RBC Nucleated RBC % (auto) O2 Saturation 98.0 ABG pH at Pt Temp 7.38 ABG pCO2 at Pt Temp 36 ABG pO2 at Pt Temp 101 ABG HCO3 22 ABG Base Excess (Actual) -2.3 Anion Gap Estim Creat Clear Calc Estimated GFR POC Glucose Random Glucose Lactic Acid Calcium Magnesium Total Bilirubin AST ALT Alkaline Phosphatase Ammonia Troponin I High Sens Total Protein Albumin Random Vancomycin 01/25/25 01/25/25 01/25/25 08:18 08:18 08:18 MCV MCH Cancelled MCHC 33.2 Cancelled RDW 15.4 Cancelled Plt Count 133 L MPV Immature Gran % (Auto) Neut % (Auto) Lymph % (Auto) [place] % (Auto) Eos % (Auto) Baso % (Auto) Lymph # (Auto) [place] # (Auto) Eos # (Auto) Baso # (Auto) Abs Immat Gran (auto) Absolute Neuts (auto) Absolute Nucleated RBC Nucleated RBC % (auto) O2 Saturation ABG pH at Pt Temp ABG pCO2 at Pt Temp ABG pO2 at Pt Temp ABG HCO3 ABG Base Excess (Actual) Anion Gap Estim Creat Clear Calc Estimated GFR POC Glucose Random Glucose Lactic Acid Calcium Magnesium Total Bilirubin AST ALT Alkaline Phosphatase Ammonia Troponin I High Sens Total Protein Albumin Random Vancomycin 01/25/25 01/25/25 01/25/25 08:18 08:18 08:18 MCV MCH MCHC RDW Plt Count Cancelled MPV 11.6 Cancelled Immature Gran % (Auto) 0.5 H Cancelled Neut % (Auto) 83.7 H Lymph % (Auto) [place] % (Auto) Eos % (Auto) Baso % (Auto) Lymph # (Auto) [place] # (Auto) Eos # (Auto) Baso # (Auto) Abs Immat Gran (auto) Absolute Neuts (auto) Absolute Nucleated RBC Nucleated RBC % (auto) O2 Saturation ABG pH at Pt Temp ABG pCO2 at Pt Temp ABG pO2 at Pt Temp ABG HCO3 ABG Base Excess (Actual) Anion Gap Estim Creat Clear Calc Estimated GFR POC Glucose Random Glucose Lactic Acid Calcium Magnesium Total Bilirubin AST ALT Alkaline Phosphatase Ammonia Troponin I High Sens Total Protein Albumin Random Vancomycin 01/25/25 01/25/25 01/25/25 08:18 08:18 08:18 MCV MCH MCHC RDW Plt Count MPV Immature Gran % (Auto) Neut % (Auto) Cancelled Lymph % (Auto) 9.9 L Cancelled [place] % (Auto) 4.2 Cancelled Eos % (Auto) 1.3 Baso % (Auto) Lymph # (Auto) [place] # (Auto) Eos # (Auto) Baso # (Auto) Abs Immat Gran (auto) Absolute Neuts (auto) Absolute Nucleated RBC Nucleated RBC % (auto) O2 Saturation ABG pH at Pt Temp ABG pCO2 at Pt Temp ABG pO2 at Pt Temp ABG HCO3 ABG Base Excess (Actual) Anion Gap Estim Creat Clear Calc Estimated GFR POC Glucose Random Glucose Lactic Acid Calcium Magnesium Total Bilirubin AST ALT Alkaline Phosphatase Ammonia Troponin I High Sens Total Protein Albumin Random Vancomycin 01/25/25 01/25/25 01/25/25 08:18 08:18 08:18 MCV MCH MCHC RDW Plt Count MPV Immature Gran % (Auto) Neut % (Auto) Lymph % (Auto) [place] % (Auto) Eos % (Auto) Cancelled Baso % (Auto) 0.4 Cancelled Lymph # (Auto) 0.5 L Cancelled [place] # (Auto) 0.2 Eos # (Auto) Baso # (Auto) Abs Immat Gran (auto) Absolute Neuts (auto) Absolute Nucleated RBC Nucleated RBC % (auto) O2 Saturation ABG pH at Pt Temp ABG pCO2 at Pt Temp ABG pO2 at Pt Temp ABG HCO3 ABG Base Excess (Actual) Anion Gap Estim Creat Clear Calc Estimated GFR POC Glucose Random Glucose Lactic Acid Calcium Magnesium Total Bilirubin AST ALT Alkaline Phosphatase Ammonia Troponin I High Sens Total Protein Albumin Random Vancomycin 01/25/25 01/25/25 01/25/25 08:18 08:18 08:18 MCV MCH MCHC RDW Plt Count MPV Immature Gran % (Auto) Neut % (Auto) Lymph % (Auto) [place] % (Auto) Eos % (Auto) Baso % (Auto) Lymph # (Auto) [place] # (Auto) Cancelled Eos # (Auto) 0.1 Cancelled Baso # (Auto) 0.0 Cancelled Abs Immat Gran (auto) 0.03 Absolute Neuts (auto) Absolute Nucleated RBC Nucleated RBC % (auto) O2 Saturation ABG pH at Pt Temp ABG pCO2 at Pt Temp ABG pO2 at Pt Temp ABG HCO3 ABG Base Excess (Actual) Anion Gap Estim Creat Clear Calc Estimated GFR POC Glucose Random Glucose Lactic Acid Calcium Magnesium Total Bilirubin AST ALT Alkaline Phosphatase Ammonia Troponin I High Sens Total Protein Albumin Random Vancomycin 01/25/25 01/25/25 01/25/25 08:18 08:18 08:18 MCV MCH MCHC RDW Plt Count MPV Immature Gran % (Auto) Neut % (Auto) Lymph % (Auto) [place] % (Auto) Eos % (Auto) Baso % (Auto) Lymph # (Auto) [place] # (Auto) Eos # (Auto) Baso # (Auto) Abs Immat Gran (auto) Cancelled Absolute Neuts (auto) 4.6 Cancelled Absolute Nucleated RBC 0.000 Cancelled Nucleated RBC % (auto) 0.0 O2 Saturation ABG pH at Pt Temp ABG pCO2 at Pt Temp ABG pO2 at Pt Temp ABG HCO3 ABG Base Excess (Actual) Anion Gap Estim Creat Clear Calc Estimated GFR POC Glucose Random Glucose Lactic Acid Calcium Magnesium Total Bilirubin AST ALT Alkaline Phosphatase Ammonia Troponin I High Sens Total Protein Albumin Random Vancomycin 01/25/25 01/25/25 01/25/25 08:18 09:45 10:46 MCV MCH MCHC RDW Plt Count MPV Immature Gran % (Auto) Neut % (Auto) Lymph % (Auto) [place] % (Auto) Eos % (Auto) Baso % (Auto) Lymph # (Auto) [place] # (Auto) Eos # (Auto) Baso # (Auto) Abs Immat Gran (auto) Absolute Neuts (auto) Absolute Nucleated RBC Nucleated RBC % (auto) Cancelled O2 Saturation ABG pH at Pt Temp ABG pCO2 at Pt Temp ABG pO2 at Pt Temp ABG HCO3 ABG Base Excess (Actual) Anion Gap 23 H Estim Creat Clear Calc 9.5 Estimated GFR 6 POC Glucose 116 H Random Glucose 143 H Lactic Acid 0.8 Calcium 9.1 Magnesium 2.5 Total Bilirubin 1.1 H AST 20 ALT 7 Alkaline Phosphatase 210 H Ammonia 19 Troponin I High Sens 11.7 D Total Protein 7.5 Albumin 3.8 Random Vancomycin 22.9 H Procedures Date of Service Date of Service: 01/25/25 Progress Note: A&P Assessment and plan (1) Status post below-knee amputation of left lower extremity: Status: Acute Assessment and Plan: Incision well healed No signs of infection - no fluctuance, no obvious discharge, no redness I removed some of her sutures - we will remove the rest of the sutures this week Continue current care as per hospitalist service Time Spent With Patient Time: Total time managing care of this patient today ____ minutes. Quality Stroke Does the patient have a stroke diagnosis?: No VTE Prior VTE?: No VTE Risk Level:: Medical - moderate - high VTE Device Contraindication: Treatment Not Indicated VTE Drug Contraindication: N/A - Med Ordered
[2025-01-25] MEDS: diazePAM 10 MG/2 ML CARTRIDGE IVPUSH (13:37)
--- NOTE | 2025-01-25 14:15 | PM.NEUROCN ---
History of Present Illness Data of Consult Service Date: 01/25/25 Primary Care Provider: Unknown Physician HPI Reason for consult: Change in mental status 34 years old woman with complex underlying medical history previously seen and diagnosed with significant microvascular disease and also MRI suspicious of multiple sclerosis. At this time she was confused and this consultation was requested. She was unable to provide any history this time but according to nursing she was talking yesterday. She was thrashing and trying to take of tubes attached to her hands. Review of Systems Review of Systems: Could not be done with her [facility] Past Medical History Medical History (Updated 01/25/25 @ 14:17 by Liv Malik MD) Central pontine myelinolysis ESRD on hemodialysis End-stage renal disease (ESRD) Cardiomyopathy Cerebral microvascular disease Steroid-induced hyperglycemia Relapsing remitting multiple sclerosis Renal failure Multiple sclerosis Cerebral infarction Hyperkalemia ESRD on dialysis Hypoxia End stage renal disease on dialysis Chronic ulcer of right foot due to diabetes mellitus Chronic ulcer of left foot due to diabetes mellitus DM foot ulcer Hypotonic neurogenic bladder Diabetic polyneuropathy Hypertensive emergency Decompensated heart failure Renal failure Hypertension, uncontrolled Medical non-compliance Pericarditis Unspecified hypertension, condition or complication Metabolic acidosis Gastroparesis End stage chronic kidney disease Chronic kidney disease Anemia Plantar ulcer of left foot MDD (major depressive disorder) CKD (chronic kidney disease) Hypertension Vomiting Chronic pain Non-compliance with renal dialysis Diabetic foot ulcer associated with type 2 diabetes mellitus HFrEF (heart failure with reduced ejection fraction) delivery delivered Anemia in chronic kidney disease (CKD) CKD (chronic kidney disease) Abnormal finding on echocardiogram Elevated troponin Acute worsening of stage 3 chronic kidney disease Generalized edema Sepsis Cellulitis Pleural effusion Atypical chest pain Bone infection PAD (peripheral artery disease) Cellulitis and abscess of foot Osteomyelitis Asthma Depression with anxiety Diabetic retinopathy Blind right eye Diabetes Back pain Family History Family History Mother Coronary artery disease Myocardial infarction Stroke Diabetes mellitus Father Myocardial infarction Surgical History Surgical History (Updated 01/24/25 @ 00:02 by Kane Mueller) Below-knee amputation of left lower extremity (~01/05/25) Tubal ligation status Previous section Hx laparoscopic cholecystectomy Hx of surgical procedure (~09/11/23) 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 Social History Social History Household Members: Family Household Members Other:: sister, brother, [id number] Housing: Apartment Housing Other:: Apartment, 1st floor Are you a primary morning caregiver to a significant other at home: No Do you presently have visiting nurse or other home services: No Alcohol intake: never Comment: patient refusing bed alarm Patient Tobacco Use Status: Never used Tobacco e-Cigarette/Vaping Use: Never Used Second Hand Smoke Exposure: No Advance Directives Date on File: 08/28/23 service: No Current occupational status: unemployed and disabled Gender identity: Female Meds Allergies Allergy/AdvReac Type Severity Reaction Status Date / Time gabapentin Allergy Severe Facial Verified 01/21/25 16:52 Swelling tramadol Allergy Severe Facial Verified 01/21/25 16:52 Swelling azithromycin (From Zithromax) Allergy Intermediate Hives Verified 01/21/25 16:52 morphine (MORPHINE) Allergy Intermediate Itching Verified 01/21/25 16:52 vancomycin AdvReac Intermediate Itching Verified 01/21/25 16:52 Active Medications: Current Medications Acetaminophen (Acetaminophen 325 Mg Tablet) 975 mg PO Q6H [facility] Last Admin: 01/25/25 10:11 Dose: Not Given Albuterol Sulfate (Albuterol Sulfate 90 Mcg 8 Gm Inhaler) 2 puff INHALE Q6H PRN PRN Reason: Wheezing Amlodipine Besylate (Amlodipine Besylate 2.5 Mg Tablet) 7.5 mg PO BEDTIME [facility]; Protocol Last Admin: 01/24/25 21:08 Dose: Not Given Apixaban (Apixaban 2.5 Mg Tablet) 2.5 mg PO BID [facility] Last Admin: 01/25/25 10:11 Dose: Not Given Calcium Carbonate (Calcium Carbonate 750 Mg Tab.Chew) 375 mg PO TIDWM PRN PRN Reason: Acid Reflux Carvedilol (Carvedilol 12.5 Mg Tablet) 12.5 mg PO BID [facility]; Protocol Last Admin: 01/25/25 03:50 Dose: 12.5 mg Dextrose (Dextrose 50 % 25 Gm/50 Ml Syringe) 25 gm IVPUSH Q15M PRN; Protocol PRN Reason: per Hypoglycemia Standing Ord. Diazepam (Diazepam 10 Mg/2 Ml Cartridge) 10 mg IVPUSH Q6H PRN PRN Reason: Seizures Last Admin: 01/25/25 13:37 Dose: 10 mg Diphenhydramine HCl (Diphenhydramine Hcl 12.5 Mg/5 Ml Liquid) 12.5 mg PO Q6H PRN PRN Reason: Itching Glucose (Glucose Gel 15 Gm Gel..Gram.) 15 gm PO Q15M PRN; Protocol PRN Reason: per Hypoglycemia Standing Ord. Hydralazine HCl (Hydralazine Hcl 50 Mg Tablet) 50 mg PO TID [facility]; Protocol Last Admin: 01/25/25 10:12 Dose: Not Given Hydralazine HCl (Hydralazine Hcl 20 Mg/Ml Vial) 5 mg IVPUSH Q6H PRN; Protocol PRN Reason: SBP > 160 Levetiracetam (Keppra) 1,000 mg in 100 mls @ 400 mls/hr IV Q12H [facility] Sodium Bicarbonate 100 meq/ (Dextrose) 1,000 mls @ 50 mls/hr IV .Q20H [facility] Insulin Human Lispro (Insulin Lispro 100 Unit/Ml 3 Ml Vial) 0 unit SUBCUT QIDACHS [facility]; Protocol Last Admin: 01/25/25 11:22 Dose: Not Given Lidocaine (Lidocaine 4 % Patch Adh..Patch) 2 patch TRANSDERMA DAILY [facility]; Protocol Last Admin: 01/25/25 10:01 Dose: Not Given Melatonin (Melatonin 3 Mg Tablet) 6 mg PO BEDTIME PRN PRN Reason: Insomnia Oxycodone HCl (Oxycodone Hcl Er 10 Mg Tab.Er.12h) 10 mg PO BID [facility] Pantoprazole Sodium (Pantoprazole Sodium 40 Mg/10 Ml Vial) 40 mg IVPUSH BID@0630,1630 [facility] Last Admin: 01/25/25 05:57 Dose: 40 mg Prochlorperazine Edisylate (Prochlorperazine Edisylate 10 Mg/2 Ml Vial) 5 mg IVPUSH Q6H PRN PRN Reason: Nausea and Vomiting Last Admin: 01/25/25 04:02 Dose: 5 mg Sodium Chloride (0.9 % Sodium Chloride Flush 3 Ml Syringe) 3 [facility] Last Admin: 01/25/25 10:10 Dose: 3 ml Home Medications ?Medication ?Instructions ?Recorded ?Confirmed ?Last Taken ?Type albuterol sulfate 90 mcg/actuation 2 puff inhalation Q6H PRN wheezing 01/15/24 01/22/25 12/09/24 History aerosol inhaler (Ventolin HFA) nitroglycerin 0.4 mg sublingual 0.4 mg sublingual DIRECTED PRN 01/15/24 01/22/25 12/09/24 History tablet Angina calcium carbonate (Tums) 200 mg PO TIDWM PRN Acid Reflux 07/03/24 01/22/25 12/09/24 History Physical Exam Vital Signs: Vital Signs: Last Vital Signs Temp 96.9 F 01/25/25 10:44 Pulse 72 01/25/25 10:44 Resp 18 01/25/25 10:44 BP 135/69 01/25/25 10:44 Pulse Ox 97 01/25/25 10:44 O2 Del Method Room Air 01/25/25 10:44 O2 Flow Rate 1 01/23/25 12:00 Oxygen Flow Rate 5 01/21/25 16:47 BMI result Body Mass Index 33.0 Extrem: Other: Very confused and not following any commands. She was constantly moving her arms and legs and trying to take the tubes off. Exam was limited. Results Labs 01/25/25 08:18 01/25/25 08:18 Labs: Short CBC 01/25/25 01/25/25 01/25/25 Range/Units 08:18 08:18 08:18 WBC 5.5 Cancelled (4.8-10.8) X10*3/uL Hgb 11.1 L D Cancelled (12.0-16.0) g/dl Hct 33.4 L D (37.0-47.0) % Plt Count (160-400) X10*3/uL 01/25/25 01/25/25 Range/Units 08:18 08:18 WBC (4.8-10.8) X10*3/uL Hgb (12.0-16.0) g/dl Hct Cancelled (37.0-47.0) % Plt Count 133 L Cancelled (160-400) X10*3/uL BMP 01/25/25 08:18 Sodium 135 Potassium 4.6 Chloride 99 Carbon Dioxide 18 L BUN 31 H Creatinine 8.10 H* Calcium 9.1 Liver Function 01/25/25 Range/Units 08:18 Total Bilirubin 1.1 H (0.0-1.0) mg/dL AST 20 (5-31) U/L ALT 7 (0-31) U/L Alkaline Phosphatase 210 H (39-117) U/L Albumin 3.8 (3.5-5.0) g/dL Microbiology Microbiology Results: Microbiology 01/21/25 17:21 Blood - Venous Blood Culture - Preliminary No growth after 48 hours. 01/21/25 17:06 Blood - Venous Blood Culture - Preliminary No growth after 48 hours. Assessment and Plan (1) Encephalopathy: Qualifiers: Encephalopathy type: hypertensive Qualified Code(s): I67.4 - Hypertensive encephalopathy Status: Acute Probably hypertensive encephalopathy. MS would not explain this situation. Other consideration would be metabolic toxic encephalopathy. There was no obvious sign of infection. Mainstay of management is blood pressure control. I would also recommend doing an EEG to rule out seizure disorder as epileptic encephalopathy is another possibility. Procedures Date of Service Date of Service: 01/25/25
[2025-01-25 14:44] LABS: Alanine Aminotransferase 7 U/L (0-31); Albumin Level 3.8 g/dL (3.5-5.0); Alkaline Phosphatase 194 U/L (39-117); Anion Gap 24 (12-20); Aspartate Amino Transferase 21 U/L (5-31); Blood Urea Nitrogen 34 mg/dL (9-16); Calcium 9.1 mg/dL (8.4-10.2); Carbon Dioxide 20 mmol/L (22-29); Chloride 98 mmol/L (96-108); Creatinine Clr Calc Pharmacy 9.1; Estimated Glomerular Filt Rate 5; Potassium 4.5 mmol/L (3.3-5.1); Sodium 137 mmol/L (135-145); Total Protein 7.3 g/dL (6.5-8.0)
--- NOTE | 2025-01-25 15:00 | PM.CCN ---
Critical Care Event Note Summary Date of Service: 01/25/25 Code activated: No Narrative: Chart reviewed and case discussed with the attending hospitalist Dr. Marcelino Briefly, 34 year old lady with diabetic ESRD on HD, vasculopath s/p recent BKA with stump abscess, opioid seeking behaviour today with persistent encephalopathy and initially hypertensive emergency, now with resolution of hypertensive crisis, but remains encephalopathic and non-focal. Able to protect airway with normal blood gas. Ct head with no acute findings. Evaluated by neurology with concern for posiible toxic/metabolic encephalopathy. At this time does not require intensive care unit level of care. Please notify for re-evaluation, if patient condition changes. Critical Care Time (minutes): 0
[2025-01-25 17:48] LABS: Glucose, Whole Blood 79 mg/dL (60-115)
[2025-01-25 17:49] LABS: Alanine Aminotransferase 9 U/L (0-31); Albumin Level 3.4 g/dL (3.5-5.0); Alkaline Phosphatase 174 U/L (39-117); Anion Gap 21 (12-20); Aspartate Amino Transferase 18 U/L (5-31); Blood Urea Nitrogen 37 mg/dL (9-16); Calcium 8.7 mg/dL (8.4-10.2); Carbon Dioxide 20 mmol/L (22-29); Chloride 100 mmol/L (96-108); Creatinine Clr Calc Pharmacy 8.8; Estimated Glomerular Filt Rate 5; Potassium 4.7 mmol/L (3.3-5.1); Sodium 136 mmol/L (135-145); Total Protein 6.6 g/dL (6.5-8.0)
[2025-01-25 19:37] LABS: Glucose, Whole Blood 112 mg/dL (60-115)
[2025-01-25 19:59] LABS: MANUAL DIFF FLAG NO
[2025-01-25 20:03] LABS: Hematocrit 30.4 % (37.0-47.0); Hemoglobin 10.1 g/dl (12.0-16.0); Imm Gran Abs Auto 0.04 X10*3/uL (0.00-0.03); Imm Gran Pct Auto 0.6 % (0.0-0.4); Lymphocytes Absolute Auto 0.5 X10*3/uL (1.2-4.9); Mean Corpuscular HGB Conc 33.2 g/dl (31.0-35.0); Mean Corpuscular Hemoglobin 30.4 pg (27.0-33.0); Mean Corpuscular Volume 91.6 fL (80.0-98.0); NRBC Abs Auto 0.000 X10*3/uL (0.0-0.012); NRBC Pct Auto 0.0 /100WBC (0.0-0.2); Platelet Count 132 X10*3/uL (160-400); Red Blood Count 3.32 X10*6/uL (4.20-5.50); White Blood Count 6.2 X10*3/uL (4.8-10.8)
[2025-01-25 20:05] LABS: Venous Blood Gas Refer to POC result
[2025-01-25 20:06] LABS: VBG HCO3 22 mmol/L (22-26); VBG O2 % Saturation 95.0 %
[2025-01-25 20:34] LABS: Alanine Aminotransferase 7 U/L (0-31); Albumin Level 3.4 g/dL (3.5-5.0); Alkaline Phosphatase 180 U/L (39-117); Anion Gap 20 (12-20); Aspartate Amino Transferase 19 U/L (5-31); Blood Urea Nitrogen 33 mg/dL (9-16); Calcium 8.5 mg/dL (8.4-10.2); Carbon Dioxide 21 mmol/L (22-29); Chloride 101 mmol/L (96-108); Creatinine Clr Calc Pharmacy 8.6; Estimated Glomerular Filt Rate 5; Magnesium 3.2 mg/dL (1.6-2.6); Potassium 4.8 mmol/L (3.3-5.1); Sodium 137 mmol/L (135-145); Total Protein 6.6 g/dL (6.5-8.0)
[2025-01-26] VITALS (20 sets, daily range): BP systolic 113–184; BP diastolic 59–86; PULSE 64–95; RESP 10–20; TEMP 36.1–36.9; O2SAT 89–99; BMI 33.1
[2025-01-26 00:34] LABS: Glucose, Whole Blood 122 mg/dL (60-115)
[2025-01-26] MEDS: 0.9 % Sodium Chloride Flush 3 ML SYRINGE IVFLUSH ×4 (00:34→22:33)
[2025-01-26] MEDS: levETIRAcetam in NaCl (iso-os) 1,000 MG/100 ML PIGGYBACK 400 MG IV ×2 (00:58→13:01)
[2025-01-26 01:20] LABS: Glucose, Whole Blood 126 mg/dL (60-115)
[2025-01-26 02:08] LABS: ABG Refer to POC result
[2025-01-26 02:55] LABS: Glucose, Whole Blood 116 mg/dL (60-115)
--- NOTE | 2025-01-26 03:09 | PM.EVENT ---
Event Note Date of Service: 01/26/25 Event Note: Patient started to develop dry heaving. Patient is now much less hypoactive and no responsive to sternal rubs. Respiratory rate dropped to 10. Other vital signs remained stable. Patient will be transferred to the ICU for further management and evaluation. Time Spent With Patient Time: Total time managing care of this patient today ____ minutes.
--- NOTE | 2025-01-26 03:25 | W.PM.CCCN ---
History of Present Illness Data of Consult Service Date: 01/26/25 Requesting physician: Lele Maria Primary Care Provider: Unknown Physician HPI Reason for consult: Obtunded 34 years old woman with past medical history significant for chronic foot ulcers, recent left BKA (Jan [address] Rajput) end-stage renal disease on hemodialysis (M,W,F), type 2 diabetes mellitus on insulin, hypertension, multiple sclerosis, ?blindness, HFrEF (EF 51%), chronic anemia, PAD and c. diff infection presented to the emergency department on 01/21/25 with worsening pain a recent left BKA site. She was admitted to Hospital Medicine for severe sepsis secondary to recent left BKA amputation stump cellulitis. ?Surgery consulted, no acute surgial intervention. Initially treated with vancomycin and Zosyn, switched to Augmentin, no signs of infection antibiotics DC on 01/25/2025. She also had incidental finding of acute pulmonary embolism in the right lower lobe, initially treated with heparin drip, now switched to Eliquis. Yesterday patient noted to be obtunded not at baseline, patient is obtunded, head CT and brain MRI were obtained with no acute findings. ?ICU was consulted, patient was lethargic, but blood gas was within normal limits, patient was protecting airway, neurology consult was advised. overnight, patient continued to be obtunded, but patient has had 1 episode of vomiting, with high concern of possible airway aspiration. Will be transferred to ICU for airway management. Review of Systems Review of Systems: Yes Unobtainable due to mental condition [facility] Past Medical History Medical History (Updated 01/25/25 @ 14:17 by Liv Malik MD) Central pontine myelinolysis ESRD on hemodialysis End-stage renal disease (ESRD) Cardiomyopathy Cerebral microvascular disease Steroid-induced hyperglycemia Relapsing remitting multiple sclerosis Renal failure Multiple sclerosis Cerebral infarction Hyperkalemia ESRD on dialysis Hypoxia End stage renal disease on dialysis Chronic ulcer of right foot due to diabetes mellitus Chronic ulcer of left foot due to diabetes mellitus DM foot ulcer Hypotonic neurogenic bladder Diabetic polyneuropathy Hypertensive emergency Decompensated heart failure Renal failure Hypertension, uncontrolled Medical non-compliance Pericarditis Unspecified hypertension, condition or complication Metabolic acidosis Gastroparesis End stage chronic kidney disease Chronic kidney disease Anemia Plantar ulcer of left foot MDD (major depressive disorder) CKD (chronic kidney disease) Hypertension Vomiting Chronic pain Non-compliance with renal dialysis Diabetic foot ulcer associated with type 2 diabetes mellitus HFrEF (heart failure with reduced ejection fraction) delivery delivered Anemia in chronic kidney disease (CKD) CKD (chronic kidney disease) Abnormal finding on echocardiogram Elevated troponin Acute worsening of stage 3 chronic kidney disease Generalized edema Sepsis Cellulitis Pleural effusion Atypical chest pain Bone infection PAD (peripheral artery disease) Cellulitis and abscess of foot Osteomyelitis Asthma Depression with anxiety Diabetic retinopathy Blind right eye Diabetes Back pain Family History Family History Mother Coronary artery disease Myocardial infarction Stroke Diabetes mellitus Father Myocardial infarction Surgical History Surgical History (Updated 01/24/25 @ 00:02 by Kane Mueller) Below-knee amputation of left lower extremity (~01/05/25) Tubal ligation status Previous section Hx laparoscopic cholecystectomy Hx of surgical procedure (~09/11/23) 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 Social History Social History Household Members: Family Household Members Other:: sister, brother, [id number] Housing: Apartment Housing Other:: Apartment, 1st floor Are you a primary administrator health care facility to a significant other at home: No Do you presently have visiting nurse or other home services: No Alcohol intake: never Comment: patient refusing bed alarm Patient Tobacco Use Status: Never used Tobacco e-Cigarette/Vaping Use: Never Used Second Hand Smoke Exposure: No Advance Directives Date on File: 08/28/23 service: No Current occupational status: unemployed and disabled Gender identity: Female Meds Allergies Allergy/AdvReac Type Severity Reaction Status Date / Time gabapentin Allergy Severe Facial Verified 01/21/25 16:52 Swelling tramadol Allergy Severe Facial Verified 01/21/25 16:52 Swelling azithromycin (From Zithromax) Allergy Intermediate Hives Verified 01/21/25 16:52 morphine (MORPHINE) Allergy Intermediate Itching Verified 01/21/25 16:52 vancomycin AdvReac Intermediate Itching Verified 01/21/25 16:52 Active Medications: Current Medications Acetaminophen (Acetaminophen 325 Mg Tablet) 975 mg PO Q6H [facility] Last Admin: 01/26/25 03:24 Dose: Not Given Albuterol Sulfate (Albuterol Sulfate 90 Mcg 8 Gm Inhaler) 2 puff INHALE Q6H PRN PRN Reason: Wheezing Amlodipine Besylate (Amlodipine Besylate 2.5 Mg Tablet) 7.5 mg PO BEDTIME [facility]; Protocol Last Admin: 01/25/25 23:02 Dose: Not Given Apixaban (Apixaban 2.5 Mg Tablet) 2.5 mg PO BID [facility] Last Admin: 01/25/25 23:02 Dose: Not Given Calcium Carbonate (Calcium Carbonate 750 Mg Tab.Chew) 375 mg PO TIDWM PRN PRN Reason: Acid Reflux Carvedilol (Carvedilol 12.5 Mg Tablet) 12.5 mg PO BID [facility]; Protocol Last Admin: 01/25/25 23:02 Dose: Not Given Dextrose (Dextrose 50 % 25 Gm/50 Ml Syringe) 25 gm IVPUSH Q15M PRN; Protocol PRN Reason: per Hypoglycemia Standing Ord. Diazepam (Diazepam 10 Mg/2 Ml Cartridge) 10 mg IVPUSH Q6H PRN On Hold: 01/26/25 03:09 Comment: Order held by Process Transfer PRN Reason: Seizures Last Admin: 01/25/25 13:37 Dose: 10 mg Glucose (Glucose Gel 15 Gm Gel..Gram.) 15 gm PO Q15M PRN; Protocol PRN Reason: per Hypoglycemia Standing Ord. Hydralazine HCl (Hydralazine Hcl 50 Mg Tablet) 50 mg PO TID [facility]; Protocol Last Admin: 01/25/25 23:02 Dose: Not Given Hydralazine HCl (Hydralazine Hcl 20 Mg/Ml Vial) 5 mg IVPUSH Q6H PRN; Protocol PRN Reason: SBP > 160 Levetiracetam (Keppra) 1,000 mg in 100 mls @ 400 mls/hr IV Q12H [facility] Last Infusion: 01/26/25 01:13 Dose: Infused Dextrose/Sodium Chloride (D5ns) 1,000 mls @ 100 mls/hr IVCONT .Q10H [facility] Last Admin: 01/25/25 18:33 Dose: 100 mls/hr Insulin Human Lispro (Insulin Lispro 100 Unit/Ml 3 Ml Vial) 0 unit SUBCUT Q4H [facility]; Protocol Last Admin: 01/26/25 00:54 Dose: Not Given Lidocaine (Lidocaine 4 % Patch Adh..Patch) 2 patch TRANSDERMA DAILY [facility]; Protocol Last Admin: 01/25/25 10:01 Dose: Not Given Nitroglycerin (Nitroglycerin 0.4 Mg Tab.Subl) 0.4 mg SUBLINGUAL Q5MX3 PRN PRN Reason: Angina Oxycodone HCl (Oxycodone Hcl Er 10 Mg Tab.Er.12h) 10 mg PO BID [facility] Last Admin: 01/25/25 23:02 Dose: Not Given Pantoprazole Sodium (Pantoprazole Sodium 40 Mg/10 Ml Vial) 40 mg IVPUSH BID@0630,1630 [facility] Last Admin: 01/25/25 15:36 Dose: 40 mg Prochlorperazine Edisylate (Prochlorperazine Edisylate 10 Mg/2 Ml Vial) 5 mg IVPUSH Q6H PRN PRN Reason: Nausea and Vomiting Last Admin: 01/26/25 01:27 Dose: 5 mg Sodium Chloride (0.9 % Sodium Chloride Flush 3 Ml Syringe) 3 ml IVFLUSH QSHIFT [facility] Last Admin: 01/26/25 00:34 Dose: 3 ml Home Medications ?Medication ?Instructions ?Recorded ?Confirmed ?Last Taken ?Type albuterol sulfate 90 mcg/actuation 2 puff inhalation Q6H PRN wheezing 01/15/24 01/22/25 12/09/24 History aerosol inhaler (Ventolin HFA) nitroglycerin 0.4 mg sublingual 0.4 mg sublingual DIRECTED PRN 01/15/24 01/22/25 12/09/24 History tablet Angina calcium carbonate (Tums) 200 mg PO TIDWM PRN Acid Reflux 07/03/24 01/22/25 12/09/24 History Physical Exam Exam: Exam: ?General:? Obtunded, withdrawals appropriately to painful stimuli ?HEENT:? Head is normocephalic, atraumatic, right eye blindness, Buccal mucosa is dry, Neck is supple ?Cardiac:? Clear S1-S2, no murmurs rubs or gallops. ?Pulmonary:? Diminished at bases, no wheezes, rales or rhonchi. ?Abdomen:? ?Abdomen soft, non-tender, non-distended. Normal bowel sounds. ?Musculoskeletal:? L BKA, R tma ?Neurologic:?+ gag reflex, withdraws appropriately to pain on all extremities. Motor strength as above.?? ?Skin:? Left BKA skin intact, no signs of infection Vital Signs: Vital Signs: Last Vital Signs Temp 97.1 F 01/26/25 02:46 Pulse 66 01/26/25 02:46 Resp 10 L 01/26/25 02:46 BP 144/65 H 01/26/25 02:46 Pulse Ox 97 01/26/25 02:46 O2 Del Method Room Air 01/26/25 02:46 O2 Flow Rate 1 01/23/25 12:00 Oxygen Flow Rate 5 01/21/25 16:47 BMI result Body Mass Index 33.0 Results Labs 01/26/25 06:19 01/26/25 03:36 Labs: Short CBC 01/25/25 01/25/25 01/25/25 Range/Units 08:18 08:18 08:18 WBC 5.5 Cancelled (4.8-10.8) X10*3/uL Hgb 11.1 L D Cancelled (12.0-16.0) g/dl Hct 33.4 L D (37.0-47.0) % Plt Count (160-400) X10*3/uL 01/25/25 01/25/25 01/25/25 Range/Units 08:18 08:18 19:55 WBC 6.2 (4.8-10.8) X10*3/uL Hgb 10.1 L (12.0-16.0) g/dl Hct Cancelled 30.4 L (37.0-47.0) % Plt Count 133 L Cancelled 132 L (160-400) X10*3/uL BMP 01/25/25 01/25/25 01/25/25 08:18 13:56 17:23 Sodium 135 137 136 Potassium 4.6 4.5 4.7 Chloride 99 98 100 Carbon Dioxide 18 L 20 L 20 L BUN 31 H 34 H 37 H Creatinine 8.10 H* 8.45 H* 8.73 H* Calcium 9.1 9.1 8.7 01/25/25 19:55 Sodium 137 Potassium 4.8 Chloride 101 Carbon Dioxide 21 L BUN 33 H Creatinine 8.92 H* Calcium 8.5 Liver Function 01/25/25 01/25/25 01/25/25 Range/Units 08:18 13:56 17:23 Total Bilirubin 1.1 H 1.0 0.9 (0.0-1.0) mg/dL AST 20 21 18 (5-31) U/L ALT 7 7 9 (0-31) U/L Alkaline Phosphatase 210 H 194 H 174 H (39-117) U/L Albumin 3.8 3.8 3.4 L (3.5-5.0) g/dL 01/25/25 Range/Units 19:55 Total Bilirubin 0.8 (0.0-1.0) mg/dL AST 19 (5-31) U/L ALT 7 (0-31) U/L Alkaline Phosphatase 180 H (39-117) U/L Albumin 3.4 L (3.5-5.0) g/dL Microbiology Microbiology Results: Microbiology 01/21/25 17:21 Blood - Venous Blood Culture - Preliminary No growth after 48 hours. 01/21/25 17:06 Blood - Venous Blood Culture - Preliminary No growth after 48 hours. Assessment and Plan (1) ESRD on hemodialysis: Status: Acute (2) End-stage renal disease (ESRD): Status: Acute (3) Multiple sclerosis: Status: Acute (4) Encephalopathy: Qualifiers: Encephalopathy type: hypertensive Qualified Code(s): I67.4 - Hypertensive encephalopathy Status: Acute Plan 34 years old woman with past medical history significant for chronic foot ulcers, recent left BKA (Jan [address] Rajput) end-stage renal disease on hemodialysis (M,W,F), type 2 diabetes mellitus on insulin, hypertension, multiple sclerosis, ?blindness, HFrEF (EF 51%), chronic anemia, PAD transfer to ICU for aiway management due to encephalopathy Plan Will obtain blood gas, Chem, CBC, LACTIC, Ammonia. Neuro consult placed in chart by day hospitalist, pending
--- NOTE | 2025-01-26 03:25 | HO.NURTONUR ---
Care assumed at 1900 01/25/25. Dr. Noonan on the unit notified of patient events during the day. Patient continues to be unresponsive, only responding to painful stimuli with arms withdrawing from trapezius squeeze. Pt maintaining airway with positive cough and gag with oral yankeur suction and on occasion could be heard coughing and clearing secretions. Labs resulted and reviewed by Dr. Noonan. Patient positioned on side, HOB elevated greater than 35 degrees to minimize aspiration risk. Patient incontinent of dark yellow urine x2. 0100 Patient found to be diaphoretic, dry heaving, requiring assistance maintaining head posture to minimize aspiration risk. Compazine given as ordered and documented with cessation of retching within 30 minutes. Pt mental status declined as patient requiring deeper painful stimuli to respond by withdrawing arms away. RR found to be 8-10 breaths per minute with O2 sats maintaining above 95%. Refer to VS documentation. POC maintaining as documented with D5NS running at 100ml/Hr. CXY obtained. Dr. Noonan came to bedside, reconsulted Jesus Potter NP ICU. TAX MAP TECHNICIAN came to bedside and ordered patient to be transfered to ICU. Report given to Eric Butcher RN ICU @ 9500.
[2025-01-26 03:47] LABS: MANUAL DIFF FLAG NO
[2025-01-26 03:48] LABS: Hematocrit 29.0 % (37.0-47.0); Hemoglobin 9.3 g/dl (12.0-16.0); Imm Gran Abs Auto 0.03 X10*3/uL (0.00-0.03); Imm Gran Pct Auto 0.5 % (0.0-0.4); Lymphocytes Absolute Auto 0.6 X10*3/uL (1.2-4.9); Mean Corpuscular HGB Conc 32.1 g/dl (31.0-35.0); Mean Corpuscular Hemoglobin 29.4 pg (27.0-33.0); Mean Corpuscular Volume 91.8 fL (80.0-98.0); NRBC Abs Auto 0.000 X10*3/uL (0.0-0.012); NRBC Pct Auto 0.0 /100WBC (0.0-0.2); Platelet Count 135 X10*3/uL (160-400); Red Blood Count 3.16 X10*6/uL (4.20-5.50); White Blood Count 6.5 X10*3/uL (4.8-10.8)
[2025-01-26 03:53] LABS: Venous Blood Gas Refer to POC result
[2025-01-26 03:53] LABS: VBG HCO3 22 mmol/L (22-26); VBG O2 % Saturation 95.0 %
[2025-01-26 03:56] LABS: Glucose, Whole Blood 130 mg/dL (60-115)
[2025-01-26 03:59] LABS: Ammonia 24 umol/L (13-55)
[2025-01-26 04:14] LABS: Alanine Aminotransferase 8 U/L (0-31); Albumin Level 3.2 g/dL (3.5-5.0); Alkaline Phosphatase 167 U/L (39-117); Anion Gap 19 (12-20); Aspartate Amino Transferase 16 U/L (5-31); Blood Urea Nitrogen 36 mg/dL (9-16); Calcium 8.2 mg/dL (8.4-10.2); Carbon Dioxide 20 mmol/L (22-29); Chloride 104 mmol/L (96-108); Creatinine Clr Calc Pharmacy 8.2; Estimated Glomerular Filt Rate 5; Magnesium 3.1 mg/dL (1.6-2.6); Potassium 4.4 mmol/L (3.3-5.1); Sodium 139 mmol/L (135-145); Total Protein 6.4 g/dL (6.5-8.0)
--- NOTE | 2025-01-26 05:06 | PC.NURSE ---
TRANSFERRED TO [facility] FROM [facility] UNIT APPROX 4AM...PATIENT OBTUNDED..SLIGHT MOVEMENT OF HANDS BUT NOT TO COMMAND..RIGHT PUPIL FIXED (BLIND RIGHT EYE)..LEFT PUPIL 2MM AND SLUGGISH...RR 10-14..SAO2 92-96% ON ROOM AIR...NSR NO ECTOPY...BP STABLE..PROVIDER REVIEWED VBG'S/CHEMISTRY LABS..PLAN FOR DIALYSIS THIS AM..SEIZURE PRECAUTIONS IN PLACE..CAMERA AND FALL PRECAUTIONS IN PLACE..RECTAL TEMP 97.0 DEGREES...DRESSINGS TO RIGHT BKA STUMP AND LEFT METATARSAL AMPUTATIONS SITE DRY/INTACT...
[2025-01-26 06:25] LABS: MANUAL DIFF FLAG NO
[2025-01-26 06:40] LABS: Hematocrit 28.5 % (37.0-47.0); Hemoglobin 9.5 g/dl (12.0-16.0); Imm Gran Abs Auto 0.11 X10*3/uL (0.00-0.03); Imm Gran Pct Auto 1.5 % (0.0-0.4); Lymphocytes Absolute Auto 0.8 X10*3/uL (1.2-4.9); Mean Corpuscular HGB Conc 33.3 g/dl (31.0-35.0); Mean Corpuscular Hemoglobin 30.4 pg (27.0-33.0); Mean Corpuscular Volume 91.1 fL (80.0-98.0); NRBC Abs Auto 0.000 X10*3/uL (0.0-0.012); NRBC Pct Auto 0.0 /100WBC (0.0-0.2); Platelet Count 130 X10*3/uL (160-400); Red Blood Count 3.13 X10*6/uL (4.20-5.50); White Blood Count 7.5 X10*3/uL (4.8-10.8)
[2025-01-26 07:35] LABS: Glucose, Whole Blood 121 mg/dL (60-115)
[2025-01-26 10:43] LABS: Hematocrit 32.9 % (37.0-47.0); Hemoglobin 10.8 g/dl (12.0-16.0); Mean Corpuscular HGB Conc 32.8 g/dl (31.0-35.0); Mean Corpuscular Hemoglobin 30.0 pg (27.0-33.0); Mean Corpuscular Volume 91.4 fL (80.0-98.0); NRBC Abs Auto 0.000 X10*3/uL (0.0-0.012); NRBC Pct Auto 0.0 /100WBC (0.0-0.2); Platelet Count 157 X10*3/uL (160-400); Red Blood Count 3.60 X10*6/uL (4.20-5.50); White Blood Count 6.2 X10*3/uL (4.8-10.8)
[2025-01-26 10:50] LABS: INTERNATIONAL NORM RATIO 1.1 (0.9-1.1); PTT Heparin Drip 31.2 SEC (53-77.9); Prothrombin Time 13.7 SEC (11.2-13.5)
--- NOTE | 2025-01-26 10:59 | MHC.CM.PN ---
Pt transferred to ICU w/sepsis: pt very lethargic at this time: received Valium last evening for ? seizure activity. Pt is s/p BKA in December: was at home w/family/JET INSPECTOR - CM to follow for possible changes to d/c planning needs.
[2025-01-26] MEDS: Heparin Sodium,Porcine/1/2NS 25,000 UNIT/250 ML IV.SOLN 11.51 UNIT IVCONT (11:12)
[2025-01-26] MEDS: Lidocaine 4 % Patch ADH..PATCH 2 PATCH TRANSDERMA (11:20)
[2025-01-26 11:26] LABS: Glucose, Whole Blood 104 mg/dL (60-115)
--- NOTE | 2025-01-26 13:00 | EEG_ITS ---
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), MS, blind, chronic anemia- pt admitted for severe sepsis secondary to recent left BKA amputation - yesterday pt became obtunded - this AM pt not following commands- restless Medication:tylenol, albuterol, amlodipine besylate, apixaban, calcium carbonate, diazepam, hydralazine, insulin, nitro, oxycodone, pantoprazole Technical description: Photic stimulation:omitted Hyperventilation: omitted Behavioral state: restless, not following commands, nonverbal State of Consciousness: no clear stages identified Skull defect: no Sedation: 5mg of versed Handedness: unknown Duration of study: 1 hour 07 min and 20 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 Patient was unresponsive. EEG right away revealed generalize sharp and slow wave complexes that were somewhat more prominent in right hemispheric leads. With this finding, she was treated with Versed and dose of levetiracetam and that resulted in somewhat reduction of activity though it did not completely disappear. Some lead and muscle artifacts were noted. Normal background rhythm was almost not seen. Impression: Abnormal EEG consistent with electrical status epilepticus with possible right hemispheric focus. Aggressive treatment of status epilepticus is recommended with repeat EEG. SELENA
[2025-01-26 13:57] LABS: Glucose, Whole Blood 100 mg/dL (60-115)
[2025-01-26 16:55] LABS: Glucose, Whole Blood 97 mg/dL (60-115)
[2025-01-26 17:46] LABS: PTT Heparin Drip 55.8 SEC (53-77.9)
--- NOTE | 2025-01-26 18:46 | HO.SKINPHOTO ---
Location: Left BKA site Category: surgical site Location: Right transmetatarsal amp site Category: venous stais ulcer Location: bilateral buttocks Category: N/A - blanchable dark discoloration Location: posterior/back Category: N/A - skin CDI
--- NOTE | 2025-01-26 19:38 | P.PNNP_ITS ---
Subjective Subjective Date of Service: 01/26/25 Interval history: Seen and examined. Events noted HD this am Remains AMS Physical Exam 2 Vital Signs: Vital Signs: Last Vital Signs Temp 97.8 F 01/26/25 15:56 Pulse 78 01/26/25 15:56 Resp 13 01/26/25 15:56 BP 184/79 H 01/26/25 18:53 Pulse Ox 96 01/26/25 15:56 O2 Del Method Room Air 01/26/25 15:56 O2 Flow Rate 1 01/23/25 12:00 Oxygen Flow Rate 5 01/21/25 16:47 BMI result Body Mass Index 33.1 Chest: Chest palpation & inspection: normal inspection of the chest Cardio: Jugular venous distension: no JVD Rhythm: regular rhythm Heart sounds: S1 normal heart sound present and S2 normal heart sound present GI: Inspection: Yes normal to inspection Objective Data Labs 01/26/25 10:09 01/26/25 03:36 Labs: Laboratory Results - last 24 hr 01/22/25 01/25/25 01/25/25 00:17 19:55 20:01 WBC 6.2 RBC 3.32 L Hgb 10.1 L Hct 30.4 L MCV 91.6 MCH 30.4 MCHC 33.2 RDW 15.7 Plt Count 132 L MPV 10.8 Immature Gran % (Auto) 0.6 H Neut % (Auto) 85.7 H Lymph % (Auto) 8.7 L [place] % (Auto) 4.5 Eos % (Auto) 0.2 Baso % (Auto) 0.3 Lymph # (Auto) 0.5 L [place] # (Auto) 0.3 Eos # (Auto) 0.0 Baso # (Auto) 0.0 Abs Immat Gran (auto) 0.04 H Absolute Neuts (auto) 5.3 Absolute Nucleated RBC 0.000 Nucleated RBC % (auto) 0.0 Hold Purple Top PT INR aPTT Heparin Protocol VBG pH 7.41 VBG pCO2 34 VBG pO2 78 VBG HCO3 22 VBG O2 Saturation 95.0 VBG Base Excess -1.4 Sodium 137 Potassium 4.8 Chloride 101 Carbon Dioxide 21 L Anion Gap 20 BUN 33 H Creatinine 8.92 H* Estim Creat Clear Calc 8.6 Estimated GFR 5 POC Glucose Random Glucose 111 Lactic Acid Calcium 8.5 Phosphorus Magnesium 3.2 H Total Bilirubin 0.8 AST 19 ALT 7 Alkaline Phosphatase 180 H Ammonia Total Protein 6.6 Albumin 3.4 L Random Vancomycin Crossmatch See Detail 01/26/25 01/26/25 01/26/25 00:31 01:09 02:52 WBC RBC Hgb Hct MCV MCH MCHC RDW Plt Count MPV Immature Gran % (Auto) Neut % (Auto) Lymph % (Auto) [place] % (Auto) Eos % (Auto) Baso % (Auto) Lymph # (Auto) [place] # (Auto) Eos # (Auto) Baso # (Auto) Abs Immat Gran (auto) Absolute Neuts (auto) Absolute Nucleated RBC Nucleated RBC % (auto) Hold Purple Top PT INR aPTT Heparin Protocol VBG pH VBG pCO2 VBG pO2 VBG HCO3 VBG O2 Saturation VBG Base Excess Sodium Potassium Chloride Carbon Dioxide Anion Gap BUN Creatinine Estim Creat Clear Calc Estimated GFR POC Glucose 122 H 126 H 116 H Random Glucose Lactic Acid Calcium Phosphorus Magnesium Total Bilirubin AST ALT Alkaline Phosphatase Ammonia Total Protein Albumin Random Vancomycin Crossmatch 01/26/25 01/26/25 01/26/25 03:36 03:36 03:36 WBC 6.5 RBC 3.16 L Hgb 9.3 L Hct 29.0 L MCV 91.8 MCH 29.4 MCHC 32.1 RDW 15.8 Plt Count 135 L MPV 11.2 Immature Gran % (Auto) 0.5 H Neut % (Auto) 81.3 H Lymph % (Auto) 9.4 L [place] % (Auto) 7.4 Eos % (Auto) 1.1 Baso % (Auto) 0.3 Lymph # (Auto) 0.6 L [place] # (Auto) 0.5 Eos # (Auto) 0.1 Baso # (Auto) 0.0 Abs Immat Gran (auto) 0.03 Absolute Neuts (auto) 5.3 Absolute Nucleated RBC 0.000 Nucleated RBC % (auto) 0.0 Hold Purple Top PT INR aPTT Heparin Protocol VBG pH VBG pCO2 VBG pO2 VBG HCO3 VBG O2 Saturation VBG Base Excess Sodium 139 Cancelled Potassium 4.4 Cancelled Chloride 104 Carbon Dioxide Anion Gap BUN Creatinine Estim Creat Clear Calc Estimated GFR POC Glucose Random Glucose Lactic Acid Calcium Phosphorus Magnesium Total Bilirubin AST ALT Alkaline Phosphatase Ammonia Total Protein Albumin Random Vancomycin Crossmatch 01/26/25 01/26/25 01/26/25 03:36 03:36 03:36 WBC RBC Hgb Hct MCV MCH MCHC RDW Plt Count MPV Immature Gran % (Auto) Neut % (Auto) Lymph % (Auto) [place] % (Auto) Eos % (Auto) Baso % (Auto) Lymph # (Auto) [place] # (Auto) Eos # (Auto) Baso # (Auto) Abs Immat Gran (auto) Absolute Neuts (auto) Absolute Nucleated RBC Nucleated RBC % (auto) Hold Purple Top PT INR aPTT Heparin Protocol VBG pH VBG pCO2 VBG pO2 VBG HCO3 VBG O2 Saturation VBG Base Excess Sodium Potassium Chloride Cancelled Carbon Dioxide 20 L Cancelled Anion Gap 19 Cancelled BUN 36 H Creatinine Estim Creat Clear Calc Estimated GFR POC Glucose Random Glucose Lactic Acid Calcium Phosphorus Magnesium Total Bilirubin AST ALT Alkaline Phosphatase Ammonia Total Protein Albumin Random Vancomycin Crossmatch 01/26/25 01/26/25 01/26/25 03:36 03:36 03:36 WBC RBC Hgb Hct MCV MCH MCHC RDW Plt Count MPV Immature Gran % (Auto) Neut % (Auto) Lymph % (Auto) [place] % (Auto) Eos % (Auto) Baso % (Auto) Lymph # (Auto) [place] # (Auto) Eos # (Auto) Baso # (Auto) Abs Immat Gran (auto) Absolute Neuts (auto) Absolute Nucleated RBC Nucleated RBC % (auto) Hold Purple Top PT INR aPTT Heparin Protocol VBG pH VBG pCO2 VBG pO2 VBG HCO3 VBG O2 Saturation VBG Base Excess Sodium Potassium Chloride Carbon Dioxide Anion Gap BUN Cancelled Creatinine 9.38 H* Cancelled Estim Creat Clear Calc 8.2 Cancelled Estimated GFR 5 POC Glucose Random Glucose Lactic Acid Calcium Phosphorus Magnesium Total Bilirubin AST ALT Alkaline Phosphatase Ammonia Total Protein Albumin Random Vancomycin Crossmatch 01/26/25 01/26/25 01/26/25 03:36 03:36 03:36 WBC RBC Hgb Hct MCV MCH MCHC RDW Plt Count MPV Immature Gran % (Auto) Neut % (Auto) Lymph % (Auto) [place] % (Auto) Eos % (Auto) Baso % (Auto) Lymph # (Auto) [place] # (Auto) Eos # (Auto) Baso # (Auto) Abs Immat Gran (auto) Absolute Neuts (auto) Absolute Nucleated RBC Nucleated RBC % (auto) Hold Purple Top PT INR aPTT Heparin Protocol VBG pH VBG pCO2 VBG pO2 VBG HCO3 VBG O2 Saturation VBG Base Excess Sodium Potassium Chloride Carbon Dioxide Anion Gap BUN Creatinine Estim Creat Clear Calc Estimated GFR Cancelled POC Glucose Random Glucose 128 H Cancelled Lactic Acid 0.7 Calcium 8.2 L Cancelled Phosphorus 6.1 H Magnesium Total Bilirubin AST ALT Alkaline Phosphatase Ammonia Total Protein Albumin Random Vancomycin Crossmatch 01/26/25 01/26/25 01/26/25 03:36 03:36 03:36 WBC RBC Hgb Hct MCV MCH MCHC RDW Plt Count MPV Immature Gran % (Auto) Neut % (Auto) Lymph % (Auto) [place] % (Auto) Eos % (Auto) Baso % (Auto) Lymph # (Auto) [place] # (Auto) Eos # (Auto) Baso # (Auto) Abs Immat Gran (auto) Absolute Neuts (auto) Absolute Nucleated RBC Nucleated RBC % (auto) Hold Purple Top PT INR aPTT Heparin Protocol VBG pH VBG pCO2 VBG pO2 VBG HCO3 VBG O2 Saturation VBG Base Excess Sodium Potassium Chloride Carbon Dioxide Anion Gap BUN Creatinine Estim Creat Clear Calc Estimated GFR POC Glucose Random Glucose Lactic Acid Calcium Phosphorus Cancelled Magnesium 3.1 H Cancelled Total Bilirubin 0.7 AST 16 ALT 8 Alkaline Phosphatase 167 H Ammonia 24 Total Protein 6.4 L Albumin 3.2 L Cancelled Random Vancomycin Crossmatch 01/26/25 01/26/25 01/26/25 03:47 03:52 06:19 WBC 7.5 RBC 3.13 L Hgb 9.5 L Hct 28.5 L MCV 91.1 MCH 30.4 MCHC 33.3 RDW 15.7 Plt Count 130 L MPV 11.9 Immature Gran % (Auto) 1.5 H Neut % (Auto) 79.8 H Lymph % (Auto) 10.8 L [place] % (Auto) 6.4 Eos % (Auto) 1.1 Baso % (Auto) 0.4 Lymph # (Auto) 0.8 L [place] # (Auto) 0.5 Eos # (Auto) 0.1 Baso # (Auto) 0.0 Abs Immat Gran (auto) 0.11 H Absolute Neuts (auto) 6.0 Absolute Nucleated RBC 0.000 Nucleated RBC % (auto) 0.0 Hold Purple Top PT INR aPTT Heparin Protocol VBG pH 7.39 VBG pCO2 37 VBG pO2 79 VBG HCO3 22 VBG O2 Saturation 95.0 VBG Base Excess -1.5 Sodium Potassium Chloride Carbon Dioxide Anion Gap BUN Creatinine Estim Creat Clear Calc Estimated GFR POC Glucose 130 H Random Glucose Lactic Acid Calcium Phosphorus Magnesium Total Bilirubin AST ALT Alkaline Phosphatase Ammonia Total Protein Albumin Random Vancomycin Crossmatch 01/26/25 01/26/25 01/26/25 07:27 10:09 11:15 WBC 6.2 RBC 3.60 L Hgb 10.8 L Hct 32.9 L MCV 91.4 MCH 30.0 MCHC 32.8 RDW 15.7 Plt Count 157 L MPV 11.2 Immature Gran % (Auto) Neut % (Auto) Lymph % (Auto) [place] % (Auto) Eos % (Auto) Baso % (Auto) Lymph # (Auto) [place] # (Auto) Eos # (Auto) Baso # (Auto) Abs Immat Gran (auto) Absolute Neuts (auto) Absolute Nucleated RBC 0.000 Nucleated RBC % (auto) 0.0 Hold Purple Top PT 13.7 H D INR 1.1 aPTT Heparin Protocol 31.2 L D VBG pH VBG pCO2 VBG pO2 VBG HCO3 VBG O2 Saturation VBG Base Excess Sodium Potassium Chloride Carbon Dioxide Anion Gap BUN Creatinine Estim Creat Clear Calc Estimated GFR POC Glucose 121 H 104 Random Glucose Lactic Acid Calcium Phosphorus Magnesium Total Bilirubin AST ALT Alkaline Phosphatase Ammonia Total Protein Albumin Random Vancomycin Crossmatch 01/26/25 01/26/25 01/26/25 13:55 16:52 17:16 WBC RBC Hgb Hct MCV MCH MCHC RDW Plt Count MPV Immature Gran % (Auto) Neut % (Auto) Lymph % (Auto) [place] % (Auto) Eos % (Auto) Baso % (Auto) Lymph # (Auto) [place] # (Auto) Eos # (Auto) Baso # (Auto) Abs Immat Gran (auto) Absolute Neuts (auto) Absolute Nucleated RBC Nucleated RBC % (auto) Hold Purple Top SEE NOTE PT INR aPTT Heparin Protocol 55.8 D VBG pH VBG pCO2 VBG pO2 VBG HCO3 VBG O2 Saturation VBG Base Excess Sodium Potassium Chloride Carbon Dioxide Anion Gap BUN Creatinine Estim Creat Clear Calc Estimated GFR POC Glucose 100 97 Random Glucose Lactic Acid Calcium Phosphorus Magnesium Total Bilirubin AST ALT Alkaline Phosphatase Ammonia Total Protein Albumin Random Vancomycin Crossmatch 01/26/25 18:31 WBC RBC Hgb Hct MCV MCH MCHC RDW Plt Count MPV Immature Gran % (Auto) Neut % (Auto) Lymph % (Auto) [place] % (Auto) Eos % (Auto) Baso % (Auto) Lymph # (Auto) [place] # (Auto) Eos # (Auto) Baso # (Auto) Abs Immat Gran (auto) Absolute Neuts (auto) Absolute Nucleated RBC Nucleated RBC % (auto) Hold Purple Top PT INR aPTT Heparin Protocol VBG pH VBG pCO2 VBG pO2 VBG HCO3 VBG O2 Saturation VBG Base Excess Sodium Potassium Chloride Carbon Dioxide Anion Gap BUN Creatinine Estim Creat Clear Calc Estimated GFR POC Glucose Random Glucose Lactic Acid Calcium Phosphorus Magnesium Total Bilirubin AST ALT Alkaline Phosphatase Ammonia Total Protein Albumin Random Vancomycin 16.3 Crossmatch Microbiology Microbiology Results: Microbiology 01/21/25 17:21 Blood - Venous Blood Culture - Final No growth after 5 days. 01/21/25 17:06 Blood - Venous Blood Culture - Final No growth after 5 days. 01/25/25 08:18 Blood - Venous Blood Culture - Preliminary No growth after 24 hours. 01/25/25 08:18 Blood - Venous Blood Culture - Preliminary No growth after 24 hours. Procedures Date of Service Date of Service: 01/26/25 Assessment & Plan Assessment and plan (1) ESRD on hemodialysis: Status: Acute Plan ESRD: usu TTS but as in patient for MWF schedule. HyperK: History of hyperkalemia. 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 Progress Note: Quality Stroke Does the patient have a stroke diagnosis?: No
[2025-01-26 20:25] LABS: Glucose, Whole Blood 140 mg/dL (60-115)
[2025-01-26 21:13] LABS: VBG HCO3 29 mmol/L (22-26); VBG O2 % Saturation 96.0 %
[2025-01-26 21:36] LABS: Blood Urea Nitrogen 14 mg/dL (9-16); Calcium 8.8 mg/dL (8.4-10.2); Creatinine Clr Calc Pharmacy 14.4; Estimated Glomerular Filt Rate 9; Magnesium 2.4 mg/dL (1.6-2.6)
[2025-01-26 21:41] LABS: Anion Gap 18 (12-20); Carbon Dioxide 26 mmol/L (22-29); Chloride 101 mmol/L (96-108); Potassium 3.9 mmol/L (3.3-5.1); Sodium 141 mmol/L (135-145)
[2025-01-26 22:36] LABS: Venous Blood Gas Refer to POC result
[2025-01-27] VITALS (26 sets, daily range): BP systolic 129–198; BP diastolic 60–99; PULSE 71–93; RESP 10–22; TEMP 35.9–36.6; O2SAT 90–98; BMI 28.0
[2025-01-27] LABS: Glucose, Whole Blood 163 mg/dL (60-115)
--- NOTE | 2025-01-27 | EEG_ITS ---
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), MS, blind, chronic anemia- pt admitted for severe sepsis secondary to recent left BKA amputation - 2 days ago pt became obtunded - pt not following commands- restless- EEG yesterday showed status epilepticus Medications: tylenol, albuterol, amlodipine besylate, apixaban, caclium carbonate, diazepam, hydralazine, insulin, nitro, oxycodone, pantoprazole Technical Description Photic Stimulation: omitted Hyperventilation:omitted Behavioral State: patient did not follow commands before sedation, patient sedated during tracing with Precedex State of Consciousness: sedated Skull Defect: none Sedation: Precedex Handedness: unknown Duration: 2 hr 25 min 14 sec Description: This is a 16 channel portable EEG performed in ICU and lasted for about 2-1/2 hours. Almost all EEG revealed similar type of abnormalities. Background normal EEG rhythm was not noted. Background rhythm was mostly in theta to delta range with frequent triphasic waves and burst suppression type of pattern. Intermittently bilateral sharp wave and sharp and slow wave complexes were also noted. Patient was sedated during the tracing. Impression: Abnormal EEG revealing severe bihemispheric dysfunction including intermittent epileptic discharges. MTDD
[2025-01-27 02:29] LABS: PTT Heparin Drip 54.0 SEC (53-77.9)
[2025-01-27 04:09] LABS: Glucose, Whole Blood 183 mg/dL (60-115)
[2025-01-27 05:34] LABS: Hematocrit 34.7 % (37.0-47.0); Hemoglobin 11.3 g/dl (12.0-16.0); Imm Gran Abs Auto 0.04 X10*3/uL (0.00-0.03); Imm Gran Pct Auto 0.5 % (0.0-0.4); Lymphocytes Absolute Auto 0.6 X10*3/uL (1.2-4.9); MANUAL DIFF FLAG SCAN; Mean Corpuscular HGB Conc 32.6 g/dl (31.0-35.0); Mean Corpuscular Hemoglobin 29.9 pg (27.0-33.0); Mean Corpuscular Volume 91.8 fL (80.0-98.0); NRBC Abs Auto 0.000 X10*3/uL (0.0-0.012); NRBC Pct Auto 0.0 /100WBC (0.0-0.2); Platelet Count 171 X10*3/uL (160-400); Red Blood Count 3.78 X10*6/uL (4.20-5.50); SCAN SMEAR FLAG 1; White Blood Count 7.7 X10*3/uL (4.8-10.8)
[2025-01-27 05:35] LABS: VBG HCO3 25 mmol/L (22-26); VBG O2 % Saturation 100.0 %
[2025-01-27 05:59] LABS: Alanine Aminotransferase 11 U/L (0-31); Albumin Level 4.0 g/dL (3.5-5.0); Alkaline Phosphatase 188 U/L (39-117); Anion Gap 22 (12-20); Aspartate Amino Transferase 24 U/L (5-31); Blood Urea Nitrogen 19 mg/dL (9-16); Calcium 8.9 mg/dL (8.4-10.2); Carbon Dioxide 23 mmol/L (22-29); Chloride 101 mmol/L (96-108); Creatinine Clr Calc Pharmacy 11.4; Estimated Glomerular Filt Rate 8; Magnesium 2.6 mg/dL (1.6-2.6); Potassium 4.1 mmol/L (3.3-5.1); Sodium 142 mmol/L (135-145); Total Protein 7.6 g/dL (6.5-8.0)
--- NOTE | 2025-01-27 06:10 | PC.NURSE ---
Care assumed 01/26/25 1900. Overnight patient increase responsiveness. Left eye pupil 3 mm sluggish. Patient observed during the night frequently turning herself to sleep positions . Patient positioning herself on her sides with arms in a relaxed position to her side or above her head. No jerking or twitching movements noted during the course of the night. Patient at times appeared to be following redirection intermittently as at times would turn onto her IV/BP tubing and when requested to turn or reposition would follow verbal command. Patient not speaking but intermittently yelling out, reassurance provided to patient. Patient's BP elevated during the night and medicated to attempt to have systolic BP less than 160 as directed by Darlin APPLICATION SUPPORT CONSULTANT. Patient not experiencing s/s of hypoglycemia as NPO and per APPLICATION SUPPORT CONSULTANT sliding scale insulin held overnight. Patient found to have urinary retention, straight cath performed and 500mL of andria urine removed. Camera in place, bed in low locked position, bed alarm on with patient being close to nursing station as high risk for falling.
[2025-01-27 07:47] LABS: Glucose, Whole Blood 188 mg/dL (60-115)
--- NOTE | 2025-01-27 08:31 | P.PNCC_ITS ---
Subjective Subjective Date of Service: 01/27/25 Interval History: Mental status slightly better this morning but still remains confused Critical Care Time (minutes): 35 Physical Exam 2 Vital Signs: Vital Signs: Last Vital Signs Temp 97.0 F 01/27/25 08:00 Pulse 92 01/27/25 08:00 Resp 15 01/27/25 08:00 BP 172/76 H 01/27/25 08:00 Pulse Ox 96 01/27/25 08:00 O2 Del Method Room Air 01/27/25 08:00 O2 Flow Rate 1 01/23/25 12:00 Oxygen Flow Rate 5 01/21/25 16:47 BMI result Body Mass Index 28.0 General: Young lady in severe acute distress, she is chronically ill appearing and tired appearing Nutritional Appearance: well nourished and overweight Eyes: appearance normal, both eyes and all related structures; Alignment and Position: alignment normal and position normal Neck: No lymphadenopathy, no thyromegaly Resp: bilateral air entry equal, occasional added sounds present Cardio: Regular rate, regular rhythm; Heart sounds: S1 normal heart sound present and S2 normal heart sound present GI: soft, nontender, no guarding, no hepatosplenomegaly : bladder normal to inspection, bladder normal to palpation, no renal angle tenderness Skin: no rashes or lesions noted and elasticity normal Neuro: oriented to person, oriented to place, oriented to time and moves all extremities, left leg BKA wound healing well Objective Data Labs 01/27/25 05:24 01/27/25 05:24 Labs: Laboratory Results - last 24 hr 01/26/25 01/26/25 01/26/25 10:09 11:15 13:55 WBC 6.2 RBC 3.60 L Hgb 10.8 L Hct 32.9 L MCV 91.4 MCH 30.0 MCHC 32.8 RDW 15.7 Plt Count 157 L MPV 11.2 Immature Gran % (Auto) Neut % (Auto) Lymph % (Auto) [place] % (Auto) Eos % (Auto) Baso % (Auto) Lymph # (Auto) [place] # (Auto) Eos # (Auto) Baso # (Auto) Abs Immat Gran (auto) Absolute Neuts (auto) Absolute Nucleated RBC 0.000 Nucleated RBC % (auto) 0.0 Smear Tech's Comments Hold Purple Top PT 13.7 H D INR 1.1 aPTT Heparin Protocol 31.2 L D VBG pH VBG pCO2 VBG pO2 VBG HCO3 VBG O2 Saturation VBG Base Excess Sodium Potassium Chloride Carbon Dioxide Anion Gap BUN Creatinine Estim Creat Clear Calc Estimated GFR POC Glucose 104 100 Random Glucose Calcium Phosphorus Magnesium Total Bilirubin AST ALT Alkaline Phosphatase Total Protein Albumin Random Vancomycin 01/26/25 01/26/25 01/26/25 16:52 17:16 18:31 WBC RBC Hgb Hct MCV MCH MCHC RDW Plt Count MPV Immature Gran % (Auto) Neut % (Auto) Lymph % (Auto) [place] % (Auto) Eos % (Auto) Baso % (Auto) Lymph # (Auto) [place] # (Auto) Eos # (Auto) Baso # (Auto) Abs Immat Gran (auto) Absolute Neuts (auto) Absolute Nucleated RBC Nucleated RBC % (auto) Smear Tech's Comments Hold Purple Top SEE NOTE PT INR aPTT Heparin Protocol 55.8 D VBG pH VBG pCO2 VBG pO2 VBG HCO3 VBG O2 Saturation VBG Base Excess Sodium Potassium Chloride Carbon Dioxide Anion Gap BUN Creatinine Estim Creat Clear Calc Estimated GFR POC Glucose 97 Random Glucose Calcium Phosphorus Magnesium Total Bilirubin AST ALT Alkaline Phosphatase Total Protein Albumin Random Vancomycin 16.3 01/26/25 01/26/25 01/26/25 20:20 21:07 21:09 WBC RBC Hgb Hct MCV MCH MCHC RDW Plt Count MPV Immature Gran % (Auto) Neut % (Auto) Lymph % (Auto) [place] % (Auto) Eos % (Auto) Baso % (Auto) Lymph # (Auto) [place] # (Auto) Eos # (Auto) Baso # (Auto) Abs Immat Gran (auto) Absolute Neuts (auto) Absolute Nucleated RBC Nucleated RBC % (auto) Smear Tech's Comments Hold Purple Top PT INR aPTT Heparin Protocol VBG pH 7.59 H VBG pCO2 29 VBG pO2 83 VBG HCO3 29 H VBG O2 Saturation 96.0 VBG Base Excess 8.0 Sodium 141 Potassium 3.9 Chloride 101 Carbon Dioxide 26 Anion Gap 18 BUN 14 Creatinine 5.37 H* Estim Creat Clear Calc 14.4 Estimated GFR 9 POC Glucose 140 H Random Glucose 150 H Calcium 8.8 D Phosphorus 4.2 Magnesium 2.4 Total Bilirubin AST ALT Alkaline Phosphatase Total Protein Albumin Random Vancomycin 01/26/25 01/27/25 01/27/25 23:50 02:14 04:05 WBC RBC Hgb Hct MCV MCH MCHC RDW Plt Count MPV Immature Gran % (Auto) Neut % (Auto) Lymph % (Auto) [place] % (Auto) Eos % (Auto) Baso % (Auto) Lymph # (Auto) [place] # (Auto) Eos # (Auto) Baso # (Auto) Abs Immat Gran (auto) Absolute Neuts (auto) Absolute Nucleated RBC Nucleated RBC % (auto) Smear Tech's Comments Hold Purple Top PT INR aPTT Heparin Protocol 54.0 VBG pH VBG pCO2 VBG pO2 VBG HCO3 VBG O2 Saturation VBG Base Excess Sodium Potassium Chloride Carbon Dioxide Anion Gap BUN Creatinine Estim Creat Clear Calc Estimated GFR POC Glucose 163 H 183 H Random Glucose Calcium Phosphorus Magnesium Total Bilirubin AST ALT Alkaline Phosphatase Total Protein Albumin Random Vancomycin 01/27/25 01/27/25 01/27/25 05:24 05:24 05:24 WBC 7.7 Cancelled RBC 3.78 L Cancelled Hgb 11.3 L Hct MCV MCH MCHC RDW Plt Count MPV Immature Gran % (Auto) Neut % (Auto) Lymph % (Auto) [place] % (Auto) Eos % (Auto) Baso % (Auto) Lymph # (Auto) [place] # (Auto) Eos # (Auto) Baso # (Auto) Abs Immat Gran (auto) Absolute Neuts (auto) Absolute Nucleated RBC Nucleated RBC % (auto) Smear Tech's Comments Hold Purple Top PT INR aPTT Heparin Protocol VBG pH VBG pCO2 VBG pO2 VBG HCO3 VBG O2 Saturation VBG Base Excess Sodium Potassium Chloride Carbon Dioxide Anion Gap BUN Creatinine Estim Creat Clear Calc Estimated GFR POC Glucose Random Glucose Calcium Phosphorus Magnesium Total Bilirubin AST ALT Alkaline Phosphatase Total Protein Albumin Random Vancomycin 01/27/25 01/27/25 01/27/25 05:24 05:24 05:24 WBC RBC Hgb Cancelled Hct 34.7 L Cancelled MCV 91.8 Cancelled MCH 29.9 MCHC RDW Plt Count MPV Immature Gran % (Auto) Neut % (Auto) Lymph % (Auto) [place] % (Auto) Eos % (Auto) Baso % (Auto) Lymph # (Auto) [place] # (Auto) Eos # (Auto) Baso # (Auto) Abs Immat Gran (auto) Absolute Neuts (auto) Absolute Nucleated RBC Nucleated RBC % (auto) Smear Tech's Comments Hold Purple Top PT INR aPTT Heparin Protocol VBG pH VBG pCO2 VBG pO2 VBG HCO3 VBG O2 Saturation VBG Base Excess Sodium Potassium Chloride Carbon Dioxide Anion Gap BUN Creatinine Estim Creat Clear Calc Estimated GFR POC Glucose Random Glucose Calcium Phosphorus Magnesium Total Bilirubin AST ALT Alkaline Phosphatase Total Protein Albumin Random Vancomycin 01/27/25 01/27/25 01/27/25 05:24 05:24 05:24 WBC RBC Hgb Hct MCV MCH Cancelled MCHC 32.6 Cancelled RDW 15.8 Cancelled Plt Count 171 MPV Immature Gran % (Auto) Neut % (Auto) Lymph % (Auto) [place] % (Auto) Eos % (Auto) Baso % (Auto) Lymph # (Auto) [place] # (Auto) Eos # (Auto) Baso # (Auto) Abs Immat Gran (auto) Absolute Neuts (auto) Absolute Nucleated RBC Nucleated RBC % (auto) Smear Tech's Comments Hold Purple Top PT INR aPTT Heparin Protocol VBG pH VBG pCO2 VBG pO2 VBG HCO3 VBG O2 Saturation VBG Base Excess Sodium Potassium Chloride Carbon Dioxide Anion Gap BUN Creatinine Estim Creat Clear Calc Estimated GFR POC Glucose Random Glucose Calcium Phosphorus Magnesium Total Bilirubin AST ALT Alkaline Phosphatase Total Protein Albumin Random Vancomycin 01/27/25 01/27/25 01/27/25 05:24 05:24 05:24 WBC RBC Hgb Hct MCV MCH MCHC RDW Plt Count Cancelled MPV 11.3 Cancelled Immature Gran % (Auto) 0.5 H Cancelled Neut % (Auto) 91.0 H Lymph % (Auto) [place] % (Auto) Eos % (Auto) Baso % (Auto) Lymph # (Auto) [place] # (Auto) Eos # (Auto) Baso # (Auto) Abs Immat Gran (auto) Absolute Neuts (auto) Absolute Nucleated RBC Nucleated RBC % (auto) Smear Tech's Comments Hold Purple Top PT INR aPTT Heparin Protocol VBG pH VBG pCO2 VBG pO2 VBG HCO3 VBG O2 Saturation VBG Base Excess Sodium Potassium Chloride Carbon Dioxide Anion Gap BUN Creatinine Estim Creat Clear Calc Estimated GFR POC Glucose Random Glucose Calcium Phosphorus Magnesium Total Bilirubin AST ALT Alkaline Phosphatase Total Protein Albumin Random Vancomycin 01/27/25 01/27/25 01/27/25 05:24 05:24 05:24 WBC RBC Hgb Hct MCV MCH MCHC RDW Plt Count MPV Immature Gran % (Auto) Neut % (Auto) Cancelled Lymph % (Auto) 8.0 L Cancelled [place] % (Auto) 0.4 L Cancelled Eos % (Auto) 0.0 Baso % (Auto) Lymph # (Auto) [place] # (Auto) Eos # (Auto) Baso # (Auto) Abs Immat Gran (auto) Absolute Neuts (auto) Absolute Nucleated RBC Nucleated RBC % (auto) Smear Tech's Comments Hold Purple Top PT INR aPTT Heparin Protocol VBG pH VBG pCO2 VBG pO2 VBG HCO3 VBG O2 Saturation VBG Base Excess Sodium Potassium Chloride Carbon Dioxide Anion Gap BUN Creatinine Estim Creat Clear Calc Estimated GFR POC Glucose Random Glucose Calcium Phosphorus Magnesium Total Bilirubin AST ALT Alkaline Phosphatase Total Protein Albumin Random Vancomycin 01/27/25 01/27/25 01/27/25 05:24 05:24 05:24 WBC RBC Hgb Hct MCV MCH MCHC RDW Plt Count MPV Immature Gran % (Auto) Neut % (Auto) Lymph % (Auto) [place] % (Auto) Eos % (Auto) Cancelled Baso % (Auto) 0.1 Cancelled Lymph # (Auto) 0.6 L Cancelled [place] # (Auto) 0.0 L Eos # (Auto) Baso # (Auto) Abs Immat Gran (auto) Absolute Neuts (auto) Absolute Nucleated RBC Nucleated RBC % (auto) Smear Tech's Comments Hold Purple Top PT INR aPTT Heparin Protocol VBG pH VBG pCO2 VBG pO2 VBG HCO3 VBG O2 Saturation VBG Base Excess Sodium Potassium Chloride Carbon Dioxide Anion Gap BUN Creatinine Estim Creat Clear Calc Estimated GFR POC Glucose Random Glucose Calcium Phosphorus Magnesium Total Bilirubin AST ALT Alkaline Phosphatase Total Protein Albumin Random Vancomycin 01/27/25 01/27/25 01/27/25 05:24 05:24 05:24 WBC RBC Hgb Hct MCV MCH MCHC RDW Plt Count MPV Immature Gran % (Auto) Neut % (Auto) Lymph % (Auto) [place] % (Auto) Eos % (Auto) Baso % (Auto) Lymph # (Auto) [place] # (Auto) Cancelled Eos # (Auto) 0.0 Cancelled Baso # (Auto) 0.0 Cancelled Abs Immat Gran (auto) 0.04 H Absolute Neuts (auto) Absolute Nucleated RBC Nucleated RBC % (auto) Smear Tech's Comments Hold Purple Top PT INR aPTT Heparin Protocol VBG pH VBG pCO2 VBG pO2 VBG HCO3 VBG O2 Saturation VBG Base Excess Sodium Potassium Chloride Carbon Dioxide Anion Gap BUN Creatinine Estim Creat Clear Calc Estimated GFR POC Glucose Random Glucose Calcium Phosphorus Magnesium Total Bilirubin AST ALT Alkaline Phosphatase Total Protein Albumin Random Vancomycin 01/27/25 01/27/25 01/27/25 05:24 05:24 05:24 WBC RBC Hgb Hct MCV MCH MCHC RDW Plt Count MPV Immature Gran % (Auto) Neut % (Auto) Lymph % (Auto) [place] % (Auto) Eos % (Auto) Baso % (Auto) Lymph # (Auto) [place] # (Auto) Eos # (Auto) Baso # (Auto) Abs Immat Gran (auto) Cancelled Absolute Neuts (auto) 7.0 Cancelled Absolute Nucleated RBC 0.000 Cancelled Nucleated RBC % (auto) 0.0 Smear Tech's Comments Hold Purple Top PT INR aPTT Heparin Protocol VBG pH VBG pCO2 VBG pO2 VBG HCO3 VBG O2 Saturation VBG Base Excess Sodium Potassium Chloride Carbon Dioxide Anion Gap BUN Creatinine Estim Creat Clear Calc Estimated GFR POC Glucose Random Glucose Calcium Phosphorus Magnesium Total Bilirubin AST ALT Alkaline Phosphatase Total Protein Albumin Random Vancomycin 01/27/25 01/27/25 01/27/25 05:24 05:31 07:40 WBC RBC Hgb Hct MCV MCH MCHC RDW Plt Count MPV Immature Gran % (Auto) Neut % (Auto) Lymph % (Auto) [place] % (Auto) Eos % (Auto) Baso % (Auto) Lymph # (Auto) [place] # (Auto) Eos # (Auto) Baso # (Auto) Abs Immat Gran (auto) Absolute Neuts (auto) Absolute Nucleated RBC Nucleated RBC % (auto) Cancelled Smear Tech's Comments VERIFIED Hold Purple Top PT INR aPTT Heparin Protocol VBG pH 7.57 H VBG pCO2 27 VBG pO2 154 VBG HCO3 25 VBG O2 Saturation 100.0 VBG Base Excess 4.2 Sodium 142 Potassium 4.1 Chloride 101 Carbon Dioxide 23 Anion Gap 22 H BUN 19 H Creatinine 6.23 H* Estim Creat Clear Calc 11.4 Estimated GFR 8 POC Glucose 188 H Random Glucose 189 H Calcium 8.9 Phosphorus 5.7 H Magnesium 2.6 Total Bilirubin 0.9 AST 24 ALT 11 Alkaline Phosphatase 188 H Total Protein 7.6 Albumin 4.0 Random Vancomycin Microbiology Microbiology Results: Microbiology 01/21/25 17:21 Blood - Venous Blood Culture - Final No growth after 5 days. 01/21/25 17:06 Blood - Venous Blood Culture - Final No growth after 5 days. 01/25/25 08:18 Blood - Venous Blood Culture - Preliminary No growth after 24 hours. 01/25/25 08:18 Blood - Venous Blood Culture - Preliminary No growth after 24 hours. Progress Note: A&P Assessment and plan (1) Status epilepticus: Status: Acute (2) Multiple sclerosis: Status: Acute (3) Encephalopathy: Status: Acute (4) ESRD on hemodialysis: Status: Acute (5) Cardiomyopathy: Status: Acute Plan Neuro: Acute encephalopathy possibly due to seizures and status epilepticus as noted in the EEG Increased Keppra 2 g b.i.d but given her neuropsych manifestations we will change her to something else Has history of multiple sclerosis, MRI brain showing bilateral diffuse scattered T2 hyperintensities in the deep subcortical and periventricular areas. Treating her with Solu-Medrol loading dose, we will decrease to 125 mg q.6 today Hypertension: On amlodipine, metoprolol and carvedilol Since she is not taking any medications orally doing PRN hydralazine as needed 10 mg q.6 hour Pulmonary embolus: Not able to take oral apixaban, so switched to heparin drip GI: NPO due to high-risk for aspiration Renal: End-stage renal disease on maintenance hemodialysis MWF Received HD session yesterday, next dialysis tomorrow We will closely monitor I's and O's Avoid nephrotoxic medications Heme: Chronic anemia related to end-stage renal disease HB 11.3, no indication for EPO received 2 units PRBC on 01.23.25 transfuse for hemoglobin less than 7 grams/deciliter Endocrine: Blood sugars under control Sliding scale insulin as needed Infectious disease: negative pancultures Musculoskeletal: Decubitus ulcer prevention protocol Lines: 3 peripheral Permacath on right subclavian Prophylaxis: Heparin, pantoprazole Quality Stroke Does the patient have a stroke diagnosis?: No VTE Prior VTE?: No VTE Risk Level:: Medical - moderate - high VTE Device Contraindication: Treatment Not Indicated VTE Drug Contraindication: N/A - Med Ordered
[2025-01-27] MEDS: Heparin Sodium,Porcine/1/2NS 25,000 UNIT/250 ML IV.SOLN 11.51 UNIT IVCONT (08:32)
[2025-01-27] MEDS: Lidocaine 4 % Patch ADH..PATCH 2 PATCH TRANSDERMA (08:33)
[2025-01-27] MEDS: 0.9 % Sodium Chloride Flush 3 ML SYRINGE IVFLUSH ×3 (08:34→23:24)
[2025-01-27 09:16] LABS: Venous Blood Gas Refer to POC result
[2025-01-27 10:12] LABS: INTERNATIONAL NORM RATIO 1.2 (0.9-1.1); Prothrombin Time 15.0 SEC (11.2-13.5)
--- NOTE | 2025-01-27 10:40 | MHC.CM.PN ---
Pt continues care in ICU: mental status not returned to baseline - EEG scheduled for today to assess for seizure activity: no plans to transfer. Pt from home w/[employer]/family support: CM to follow for changes.
[2025-01-27] MEDS: dexmedeTOMIDine HCL/NS 400 MCG/100 ML PLAST..BAG 17.35 MCG IVCONT (10:42)
[2025-01-27 11:51] LABS: Glucose, Whole Blood 165 mg/dL (60-115)
[2025-01-27] MEDS: Valproic Acid (as Sodium Salt) 1,000 MG in Dextrose 5 % 50 ML 60 MG IV (12:13)
--- NOTE | 2025-01-27 15:22 | HO.WOUND ---
Wound Consult: Initial 34 yr old female admitted to [facility] [place] on 01/21/25- See progress notes and H&P for detailed history. Wound consult placed for BLE, buttocks. Patient agreeable to assessment and photo documentation. Buttocks/gluteal Etiology: intact hyperpigmentation to buttocks, gluteal fold with intact pale pink scar tissue- healed skin injury - at risk for re-injury Wound Bed: intact Drainage / Odor: none Adonay wound: ? No Induration, Fluctuance or Warmth noted Goals of Treatment: ? offloading with turns, pillows/wedges and foam Left TMA- incision line well approximated medial aspect with sutures still in place, scabbing noted along incision line. lateral aspect with scant brown drainage on old dressing - recommend durafiber to this area for drainage absorption. Right TMA- area of dry stable eschar/callus- no induration no fluctuance- betadine applied Recommendations: 1. Turn and Reposition every 2 hours and as needed for patient comfort. Use pillows or wedges to support off loading positions. 2. Off Load all bony prominences with use of pillows and heel boots if needed. Apply Preventative foams where needed. 3. Monitor for incontinence and moisture control, use barrier creams when needed for prevention and treatment. 4. Provide adequate and supplemental nutrition. 5. Order or Continue low air loss mattress. 6. When applicable maintain blood glucose levels per Providers order. Buttocks: Off Load Pressure with Q2 hr turns and use of pillows - Routine cleansing. Apply skin prep allow to dry. Cover with foam dressing to aid in off loading and protection from friction. Change every 3 days and PRN. Left BKA: cleanse with saline, pat dry, apply skin prep adonay wound, apply durafiber ag to lateral aspect open area, cover entire area with dry dressing/foam, change daily and PRN Right TMA: paint with betadine daily, may cover with dry dressing or leave TECHNICAL SUPPORT SPECIALIST Re-consult wound care Nurse for wound deterioration or wound changes.
[2025-01-27 15:53] LABS: Glucose, Whole Blood 175 mg/dL (60-115)
--- NOTE | 2025-01-27 18:12 | PC.NURSE ---
Assumed care of patient 0700. Keppra IV BID dose changed from 1G to 2G and given per new orders. Patient is restless, moving b/l arms and legs frequently in bed and turning/repositioning side to side frequently. Patient does not open eyes, does not track or follow commands. Moans occasionally. Sister visited at bedside and patient responded Si when sister asked in Togolese, Do you know who I am? Sister asked Who am I? and patient did not answer. EEG test done for approx 2.5 hours. Patient was unable to tolerate laying still with application of EEG leads. MD notified. Precedex gtt started per protocol to facilitate EEG testing. See MAR. 2G Keppra infusing at start of EEG. podiatric technician notified MD that patient appears in status epilepticus. New orders for Valproic acid 1G IV given. Neurologist MD at bedside. EEG continued through Valproic acid infusion. Plan to continue scheduled IV Keppra and IV Valproic acid. Patient's sister updated by RN at bedside later in shift approx 14:00. Precedex gtt stopped when EEG completed. Patient is maintaining airway, HOB elevated >30 degrees for aspiration precautions. Wound RN at bedside approx 15:15. Wound RN and primary RN assessed skin and new dsgs applied to Left BKA site, right transmetarsal site, large coccyx foam for prevention. See wound dsg orders.
[2025-01-27] MEDS: Valproic Acid (as Sodium Salt) 500 MG in Dextrose 5 % 50 ML 55 MG IV (18:51)
[2025-01-27 20:38] LABS: Glucose, Whole Blood 189 mg/dL (60-115)
[2025-01-28] VITALS (26 sets, daily range): BP systolic 124–196; BP diastolic 60–104; PULSE 66–109; RESP 10–20; TEMP 36.1–36.4; O2SAT 91–100; BMI 34.0
--- NOTE | 2025-01-28 | EEG_ITS ---
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), MS, blind, chronic anemia- pt admitted for severe sepsis secondary to recent left BKA amputation - 3 days ago pt became obtunded - pt not fully following commands- restless- EEG yesterday showed status epilepticus Medication:Medication:Tylenol, albuterol, amlodipine besylate, apixaban, calcium carbonate, diazepam, hydralazine, insulin, nitro, oxycodone, pantoprazole Technical Description Photic Stimulation: completed Hyperventilation:omitted Behavioral State: restless, anxious, not fully following commands State of Consciousness: awake Skull Defect:no Sedation:yes- 15 mins prior to study fentanyl was given to reduce restlessness Handedness: Right Duration: 24 min 01 secs Description: This is a 16 channel portable EEG performed in ICU. Patient is reported awake during the tracing. Background EEG rhythm is 12-14 Hz, 5-30 mV posteriorly and lower amplitude faster anteriorly. Frequent muscle artifacts are noted. Intermittently sharp and slow wave complexes are noted lasting for less than a second to 3 seconds, which are somewhat more prominent in right hemispheric leads. Photic stimulation is unremarkable. Hyperventilation was not performed. Impression: Abnormal EEG revealing intermittent generalized interictal discharges that are somewhat right side predominant. MTDD
[2025-01-28 00:20] LABS: Glucose, Whole Blood 167 mg/dL (60-115)
--- NOTE | 2025-01-28 02:21 | PC.NURSE ---
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...continues to intermittantly yell incoherently...eyes open spontaneously but does not track speaker,,,one time answered yes when asked if she could hear speaker but unable to repeat response...am ptt-hd 87.8...heparin drip weaned to 12 units/kg/hr..for repeat ptt-hd 11:30am Original Note: CARE ASSUMED 7PM....REMAINS HEPARIN DRIP 14 UNITS/KG/HR....DOES NOT FOLLOW ANY COMMANDS OR OPEN EYES SPONTANEOUSLY OR TO COMMAND...VOGT BUT NOT TO COMMAND..ROLLS SELF SIDE TO SIDE..RANDOMLY PULLING ON LINES/LEADS.....YELLS INCOHERENTLY AT TIMES..NO COMPRENSIBLE WORDS...RIGHT PUPIL REMAINS FIXED (BLIND RIGHT EYE) AND LEFT PUPIL 2MM AND SLUGGISH..NSR RBBB...BP ELEVATED..PRN HYDRALZINE PER APR..ANURIC..FOR AM DIALYSIS PER PROVIDER..SOLUMEDROL 125MG IV GIVEN EARLY PER PROVIDER AND THEN INCREASED TO 250MG IV Q6H PER PROVIDER
[2025-01-28] MEDS: Valproic Acid (as Sodium Salt) 500 MG in Dextrose 5 % 50 ML 55 MG IV ×3 (02:44→18:38)
[2025-01-28] MEDS: Heparin Sodium,Porcine/1/2NS 25,000 UNIT/250 ML IV.SOLN 11.51 UNIT IVCONT (04:10)
[2025-01-28 04:25] LABS: Glucose, Whole Blood 146 mg/dL (60-115)
[2025-01-28 04:41] LABS: MANUAL DIFF FLAG NO
[2025-01-28 04:52] LABS: PTT Heparin Drip 87.8 SEC (53-77.9)
[2025-01-28 04:56] LABS: Hematocrit 30.1 % (37.0-47.0); Hemoglobin 9.8 g/dl (12.0-16.0); Imm Gran Abs Auto 0.05 X10*3/uL (0.00-0.03); Imm Gran Pct Auto 0.7 % (0.0-0.4); Lymphocytes Absolute Auto 0.6 X10*3/uL (1.2-4.9); Mean Corpuscular HGB Conc 32.6 g/dl (31.0-35.0); Mean Corpuscular Hemoglobin 30.2 pg (27.0-33.0); Mean Corpuscular Volume 92.6 fL (80.0-98.0); NRBC Abs Auto 0.000 X10*3/uL (0.0-0.012); NRBC Pct Auto 0.0 /100WBC (0.0-0.2); Platelet Count 146 X10*3/uL (160-400); Red Blood Count 3.25 X10*6/uL (4.20-5.50); White Blood Count 7.0 X10*3/uL (4.8-10.8)
[2025-01-28 05:04] LABS: Alanine Aminotransferase 8 U/L (0-31); Albumin Level 3.7 g/dL (3.5-5.0); Alkaline Phosphatase 151 U/L (39-117); Anion Gap 22 (12-20); Aspartate Amino Transferase 38 U/L (5-31); Blood Urea Nitrogen 33 mg/dL (9-16); Calcium 8.6 mg/dL (8.4-10.2); Carbon Dioxide 23 mmol/L (22-29); Chloride 102 mmol/L (96-108); Creatinine Clr Calc Pharmacy 9.9; Estimated Glomerular Filt Rate 6; Magnesium 2.8 mg/dL (1.6-2.6); Potassium 4.5 mmol/L (3.3-5.1); Sodium 142 mmol/L (135-145); Total Protein 7.1 g/dL (6.5-8.0)
[2025-01-28 08:06] LABS: Glucose, Whole Blood 150 mg/dL (60-115)
--- NOTE | 2025-01-28 08:38 | PM.CCPN ---
Subjective Subjective Date of Service: 01/28/25 Interval History: No new events, still remains confused But a little bit more responsive this morning Critical Care Time (minutes): 35 Physical Exam Vital Signs: Vital Signs: Last Vital Signs Temp 97.1 F 01/28/25 08:00 Pulse 78 01/28/25 08:00 Resp 14 01/28/25 08:00 BP 179/104 H 01/28/25 08:00 Pulse Ox 98 01/28/25 08:00 O2 Del Method Room Air 01/28/25 08:00 O2 Flow Rate 1 01/23/25 12:00 Oxygen Flow Rate 5 01/21/25 16:47 BMI result Body Mass Index 34.0 General: Young lady in mild acute distress, ill appearing and tired appearing Nutritional Appearance: well nourished and overweight Eyes: appearance normal, both eyes and all related structures; Alignment and Position: alignment normal and position normal Neck: No lymphadenopathy, no thyromegaly Resp: bilateral air entry equal, occasional added sounds present Cardio: Regular rate, regular rhythm; Heart sounds: S1 normal heart sound present and S2 normal heart sound present GI: soft, nontender, no guarding, no hepatosplenomegaly : bladder normal to inspection, bladder normal to palpation, no renal angle tenderness Skin: no rashes or lesions noted and elasticity normal Neuro: oriented to person, oriented to place, oriented to time and moves all extremities Objective Data Labs 01/28/25 03:58 01/28/25 03:58 Labs: Laboratory Results - last 24 hr 01/27/25 01/27/25 01/27/25 09:59 11:31 15:49 WBC RBC Hgb Hct MCV MCH MCHC RDW Plt Count MPV Immature Gran % (Auto) Neut % (Auto) Lymph % (Auto) [place] % (Auto) Eos % (Auto) Baso % (Auto) Lymph # (Auto) [place] # (Auto) Eos # (Auto) Baso # (Auto) Abs Immat Gran (auto) Absolute Neuts (auto) Absolute Nucleated RBC Nucleated RBC % (auto) PT 15.0 H INR 1.2 H aPTT Heparin Protocol Sodium Potassium Chloride Carbon Dioxide Anion Gap BUN Creatinine Estim Creat Clear Calc Estimated GFR POC Glucose 165 H 175 H Random Glucose Calcium Magnesium Total Bilirubin AST ALT Alkaline Phosphatase Total Protein Albumin 01/27/25 01/28/25 01/28/25 20:26 00:13 03:58 WBC 7.0 RBC 3.25 L Hgb 9.8 L Hct 30.1 L MCV 92.6 MCH 30.2 MCHC 32.6 RDW 15.7 Plt Count 146 L MPV 11.2 Immature Gran % (Auto) 0.7 H Neut % (Auto) 88.4 H Lymph % (Auto) 8.5 L [place] % (Auto) 2.3 Eos % (Auto) 0.0 Baso % (Auto) 0.1 Lymph # (Auto) 0.6 L [place] # (Auto) 0.2 Eos # (Auto) 0.0 Baso # (Auto) 0.0 Abs Immat Gran (auto) 0.05 H Absolute Neuts (auto) 6.2 Absolute Nucleated RBC 0.000 Nucleated RBC % (auto) 0.0 PT INR aPTT Heparin Protocol 87.8 H D Sodium 142 Potassium 4.5 Chloride 102 Carbon Dioxide 23 Anion Gap 22 H BUN 33 H Creatinine 7.82 H* Estim Creat Clear Calc 9.9 Estimated GFR 6 POC Glucose 189 H 167 H Random Glucose 146 H Calcium 8.6 Magnesium 2.8 H Total Bilirubin 0.6 AST 38 H ALT 8 Alkaline Phosphatase 151 H Total Protein 7.1 Albumin 3.7 01/28/25 01/28/25 04:20 07:58 WBC RBC Hgb Hct MCV MCH MCHC RDW Plt Count MPV Immature Gran % (Auto) Neut % (Auto) Lymph % (Auto) [place] % (Auto) Eos % (Auto) Baso % (Auto) Lymph # (Auto) [place] # (Auto) Eos # (Auto) Baso # (Auto) Abs Immat Gran (auto) Absolute Neuts (auto) Absolute Nucleated RBC Nucleated RBC % (auto) PT INR aPTT Heparin Protocol Sodium Potassium Chloride Carbon Dioxide Anion Gap BUN Creatinine Estim Creat Clear Calc Estimated GFR POC Glucose 146 H 150 H Random Glucose Calcium Magnesium Total Bilirubin AST ALT Alkaline Phosphatase Total Protein Albumin Microbiology Microbiology Results: Microbiology 01/25/25 08:18 Blood - Venous Blood Culture - Preliminary No growth after 48 hours. 01/25/25 08:18 Blood - Venous Blood Culture - Preliminary No growth after 48 hours. 01/21/25 17:21 Blood - Venous Blood Culture - Final No growth after 5 days. 01/21/25 17:06 Blood - Venous Blood Culture - Final No growth after 5 days. Progress Note: A&P Assessment and plan (1) Multiple sclerosis exacerbation: Status: Acute (2) Status epilepticus: Status: Acute (3) End-stage renal disease (ESRD): Status: Acute Plan Acute encephalopathy possibly due to seizures and status epilepticus as noted in the EEG Increased Keppra 2 g b.i.d and on valproate 500mg TID Has history of multiple sclerosis, MRI brain showing bilateral diffuse scattered T2 hyperintensities in the deep subcortical and periventricular areas. Treating her with Solu-Medrol loading dose, 250 mg q.6 today is Day 3 Hypertension: On amlodipine, metoprolol and carvedilol Since she is not taking any medications orally doing PRN hydralazine as needed 10 mg q.6 hour Pulmonary embolus: Not able to take oral apixaban, so switched to heparin drip GI: NPO due to high-risk for aspiration Renal: End-stage renal disease on maintenance hemodialysis MWF Received HD session this morning We will closely monitor I's and O's Avoid nephrotoxic medications Heme: Chronic anemia related to end-stage renal disease HB 9.8, no indication for EPO received 2 units PRBC on 01.23.25 We will get hemolysis labs transfuse for hemoglobin less than 7 grams/deciliter Endocrine: Blood sugars under control Sliding scale insulin as needed Infectious disease: negative pancultures Musculoskeletal: Decubitus ulcer prevention protocol Lines: 3 peripheral Permacath on right subclavian Prophylaxis: Heparin, pantoprazole Quality Stroke Does the patient have a stroke diagnosis?: No VTE Prior VTE?: No VTE Risk Level:: Medical - moderate - high VTE Device Contraindication: Treatment Not Indicated VTE Drug Contraindication: N/A - Med Ordered
[2025-01-28 10:02] LABS: Reticulocytes Absolute 0.130 X10*6/uL (0.026-0.095)
[2025-01-28 10:17] LABS: PTT Heparin Drip 90.7 SEC (53-77.9)
[2025-01-28 11:31] LABS: Glucose, Whole Blood 164 mg/dL (60-115)
[2025-01-28 12:10] LABS: PTT Heparin Drip 69.9 SEC (53-77.9)
--- NOTE | 2025-01-28 15:01 | MHC.CM.PN ---
PT REMAINS IN ICU, RESTLESS AND CONFUSED, REMAINS NPO. CM WILL CONTINUE TO FOLLOW FOR PLAN.
[2025-01-28 17:28] LABS: Glucose, Whole Blood 151 mg/dL (60-115)
[2025-01-28] MEDS: 0.9 % Sodium Chloride Flush 3 ML SYRINGE IVFLUSH ×2 (17:46→21:24)
[2025-01-28 17:56] LABS: PTT Heparin Drip 58.3 SEC (53-77.9)
[2025-01-28 19:27] LABS: Glucose, Whole Blood 171 mg/dL (60-115)
--- NOTE | 2025-01-28 19:27 | PM.PNNEP ---
Subjective Subjective Date of Service: 01/28/25 Interval history: Seen and examined,events noted Physical Exam Vital Signs: Vital Signs: Last Vital Signs Temp 97.5 F 01/28/25 12:00 Pulse 76 01/28/25 18:53 Resp 11 L 01/28/25 18:53 BP 126/90 H 01/28/25 18:53 Pulse Ox 98 01/28/25 18:53 O2 Del Method Room Air 01/28/25 18:53 O2 Flow Rate 10 01/28/25 18:00 Oxygen Flow Rate 5 01/21/25 16:47 BMI result Body Mass Index 34.0 Chest: Chest palpation & inspection: normal inspection of the chest Cardio: Jugular venous distension: no JVD Rhythm: regular rhythm Heart sounds: S1 normal heart sound present and S2 normal heart sound present GI: Inspection: Yes normal to inspection Objective Data Labs 01/28/25 03:58 01/28/25 03:58 Labs: Laboratory Results - last 24 hr 01/27/25 01/28/25 01/28/25 20:26 00:13 03:58 WBC 7.0 RBC 3.25 L Hgb 9.8 L Hct 30.1 L MCV 92.6 MCH 30.2 MCHC 32.6 RDW 15.7 Plt Count 146 L MPV 11.2 Immature Gran % (Auto) 0.7 H Neut % (Auto) 88.4 H Lymph % (Auto) 8.5 L [place] % (Auto) 2.3 Eos % (Auto) 0.0 Baso % (Auto) 0.1 Lymph # (Auto) 0.6 L [place] # (Auto) 0.2 Eos # (Auto) 0.0 Baso # (Auto) 0.0 Abs Immat Gran (auto) 0.05 H Absolute Neuts (auto) 6.2 Absolute Nucleated RBC 0.000 Nucleated RBC % (auto) 0.0 Absolute Retic Percent Retic Immature Retic Fraction Retic Hgb Equivalent aPTT Heparin Protocol 87.8 H D Sodium 142 Potassium 4.5 Chloride 102 Carbon Dioxide 23 Anion Gap 22 H BUN 33 H Creatinine 7.82 H* Estim Creat Clear Calc 9.9 Estimated GFR 6 POC Glucose 189 H 167 H Random Glucose 146 H Haptoglobin Calcium 8.6 Magnesium 2.8 H Total Bilirubin 0.6 AST 38 H ALT 8 Alkaline Phosphatase 151 H Lactate Dehydrogenase Total Protein 7.1 Albumin 3.7 MATTHEW, Polyspecific Positive MATTHEW Work-up 01/28/25 01/28/25 01/28/25 04:20 07:58 09:53 WBC RBC Hgb Hct MCV MCH MCHC RDW Plt Count MPV Immature Gran % (Auto) Neut % (Auto) Lymph % (Auto) [place] % (Auto) Eos % (Auto) Baso % (Auto) Lymph # (Auto) [place] # (Auto) Eos # (Auto) Baso # (Auto) Abs Immat Gran (auto) Absolute Neuts (auto) Absolute Nucleated RBC Nucleated RBC % (auto) Absolute Retic 0.130 H Percent Retic 3.2 H Immature Retic Fraction 12.5 Retic Hgb Equivalent 36.0 H aPTT Heparin Protocol 90.7 H Sodium Potassium Chloride Carbon Dioxide Anion Gap BUN Creatinine Estim Creat Clear Calc Estimated GFR POC Glucose 146 H 150 H Random Glucose Haptoglobin 37 Calcium Magnesium Total Bilirubin AST ALT Alkaline Phosphatase Lactate Dehydrogenase 302 H Total Protein Albumin MATTHEW, Polyspecific NEGATIVE Positive MATTHEW Work-up Not Reportable 01/28/25 01/28/25 01/28/25 11:24 11:45 17:22 WBC RBC Hgb Hct MCV MCH MCHC RDW Plt Count MPV Immature Gran % (Auto) Neut % (Auto) Lymph % (Auto) [place] % (Auto) Eos % (Auto) Baso % (Auto) Lymph # (Auto) [place] # (Auto) Eos # (Auto) Baso # (Auto) Abs Immat Gran (auto) Absolute Neuts (auto) Absolute Nucleated RBC Nucleated RBC % (auto) Absolute Retic Percent Retic Immature Retic Fraction Retic Hgb Equivalent aPTT Heparin Protocol 69.9 D 58.3 Sodium Potassium Chloride Carbon Dioxide Anion Gap BUN Creatinine Estim Creat Clear Calc Estimated GFR POC Glucose 164 H Random Glucose Haptoglobin Calcium Magnesium Total Bilirubin AST ALT Alkaline Phosphatase Lactate Dehydrogenase Total Protein Albumin MATTHEW, Polyspecific Positive MATTHEW Work-up 01/28/25 01/28/25 17:24 19:22 WBC RBC Hgb Hct MCV MCH MCHC RDW Plt Count MPV Immature Gran % (Auto) Neut % (Auto) Lymph % (Auto) [place] % (Auto) Eos % (Auto) Baso % (Auto) Lymph # (Auto) [place] # (Auto) Eos # (Auto) Baso # (Auto) Abs Immat Gran (auto) Absolute Neuts (auto) Absolute Nucleated RBC Nucleated RBC % (auto) Absolute Retic Percent Retic Immature Retic Fraction Retic Hgb Equivalent aPTT Heparin Protocol Sodium Potassium Chloride Carbon Dioxide Anion Gap BUN Creatinine Estim Creat Clear Calc Estimated GFR POC Glucose 151 H 171 H Random Glucose Haptoglobin Calcium Magnesium Total Bilirubin AST ALT Alkaline Phosphatase Lactate Dehydrogenase Total Protein Albumin MATTHEW, Polyspecific Positive MATTHEW Work-up Microbiology Microbiology Results: Microbiology 01/25/25 08:18 Blood - Venous Blood Culture - Preliminary No growth after 48 hours. 01/25/25 08:18 Blood - Venous Blood Culture - Preliminary No growth after 48 hours. 01/21/25 17:21 Blood - Venous Blood Culture - Final No growth after 5 days. 01/21/25 17:06 Blood - Venous Blood Culture - Final No growth after 5 days. Procedures Date of Service Date of Service: 01/28/25 Assessment & Plan Assessment and plan (1) ESRD on hemodialysis: Status: Acute Plan ESRD: usu TTS but as in patient for MWF schedule. HyperK: History of hyperkalemia. 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 Progress Note: Quality Stroke Does the patient have a stroke diagnosis?: No
[2025-01-29] VITALS (22 sets, daily range): BP systolic 96–170; BP diastolic 54–96; PULSE 65–98; RESP 12–29; TEMP 36.1–36.9; O2SAT 97–100; BMI 33.8
[2025-01-29 00:33] LABS: Glucose, Whole Blood 135 mg/dL (60-115)
[2025-01-29] MEDS: Valproic Acid (as Sodium Salt) 500 MG in Dextrose 5 % 50 ML 55 MG IV (02:36)
[2025-01-29 03:45] LABS: Glucose, Whole Blood 178 mg/dL (60-115)
[2025-01-29] MEDS: Heparin Sodium,Porcine/1/2NS 25,000 UNIT/250 ML IV.SOLN 9.86 UNIT IVCONT (03:49)
--- NOTE | 2025-01-29 04:29 | PC.NURSE ---
Assumed care at 1900. Upon initial assessment, patient arousable to verbal stimuli but unable to consistently answer questions. When asked for name, patient repeatedly?answers I don't know , and when asked where we are, replied I'm at my brother's house. Patient reoriented repeatedly as needed. Able to tell this RN that she is in pain, though does not elaborate on where or intensity. One time dose of toradol ordered and administered per APR. Moves all extremities, forgetful and vague. Repeatedly asking who are you? . SR with?BBB on tele, HR 70s-80s. Heparin gtt running?per APR. Patient noted to be hypertensive at approx 2100, JOVON Fernandez notified. One time additional hydralazine dose ordered and administered per APR. Lung sounds diminished throughout, saturating well on room air. Abdomen soft and round, NPO maintained. Patient anuric r/t dialysis. Skin warm and dry, pink foam to coccyx dry and intact. Right foot ulcer dry and open to air, left BKA foam dressing dry and intact. Bed locked in lowest position, bed alarm on, seizure?precautions in place, avasys camera for safety. At approx 2130: patient restless and moaning, repeatedly yelling I'm in pain! . Verbal reassurance given and patient educated by this RN on previous pain medication administration. Patient screaming and requesting to speak to provider. JOVON Fernandez to bedside to speak with patient. Patient educated by JOVON Fernandez as well as this RN on plan of care and pain management. Patient required repeated reinforcement r/t teaching.? Approx 0400: Patient more alert, able to state her name when prompted and tell this RN that she is in a hospital, although unsure of which one. Able to make more needs known, including wanting to be washed up. Full bed bath given, tolerated well. Nursing bedside swallow eval completed due to improvement in mentation. Patient passed bedside swallow eval. JOVON Fernandez notified.?Patient resting comfortably, RR even and unlabored. Bed locked in lowest position, bed alarm on, avasys camera at bedside for safety.
[2025-01-29 04:41] LABS: Hematocrit 37.5 % (37.0-47.0); Hemoglobin 12.3 g/dl (12.0-16.0); Imm Gran Abs Auto 0.05 X10*3/uL (0.00-0.03); Imm Gran Pct Auto 0.6 % (0.0-0.4); Lymphocytes Absolute Auto 0.5 X10*3/uL (1.2-4.9); MANUAL DIFF FLAG SCAN; Mean Corpuscular HGB Conc 32.8 g/dl (31.0-35.0); Mean Corpuscular Hemoglobin 29.9 pg (27.0-33.0); Mean Corpuscular Volume 91.2 fL (80.0-98.0); NRBC Abs Auto 0.000 X10*3/uL (0.0-0.012); NRBC Pct Auto 0.0 /100WBC (0.0-0.2); Platelet Count 178 X10*3/uL (160-400); Red Blood Count 4.11 X10*6/uL (4.20-5.50); SCAN SMEAR FLAG 1; White Blood Count 8.7 X10*3/uL (4.8-10.8)
[2025-01-29 05:01] LABS: Alanine Aminotransferase 9 U/L (0-31); Albumin Level 4.3 g/dL (3.5-5.0); Alkaline Phosphatase 171 U/L (39-117); Anion Gap 22 (12-20); Aspartate Amino Transferase 17 U/L (5-31); Blood Urea Nitrogen 34 mg/dL (9-16); Calcium 8.8 mg/dL (8.4-10.2); Carbon Dioxide 21 mmol/L (22-29); Chloride 100 mmol/L (96-108); Estimated Glomerular Filt Rate 9; Magnesium 2.6 mg/dL (1.6-2.6); PTT Heparin Drip 65.1 SEC (53-77.9); Potassium 4.2 mmol/L (3.3-5.1); Sodium 139 mmol/L (135-145); Total Protein 7.9 g/dL (6.5-8.0)
[2025-01-29 06:20] LABS: Creatinine Clr Calc Pharmacy 14.3
[2025-01-29 07:29] LABS: Glucose, Whole Blood 154 mg/dL (60-115)
[2025-01-29] MEDS: 0.9 % Sodium Chloride Flush 3 ML SYRINGE IVFLUSH ×3 (08:23→22:46)
--- NOTE | 2025-01-29 08:29 | P.PNCC_ITS ---
Subjective Subjective Date of Service: 01/29/25 Interval History: mental status much better no further seizures on EEG Critical Care Time (minutes): 35 Physical Exam 2 Vital Signs: Vital Signs: Last Vital Signs Temp 97.6 F 01/29/25 04:00 Pulse 66 01/29/25 07:00 Resp 15 01/29/25 07:00 BP 116/58 L 01/29/25 07:00 Pulse Ox 100 01/29/25 07:00 O2 Del Method Room Air 01/29/25 07:00 O2 Flow Rate 10 01/28/25 18:00 Oxygen Flow Rate 5 01/21/25 16:47 BMI result Body Mass Index 33.8 General: not in any acute distress, ill appearing Nutritional Appearance: well nourished and overweight Eyes: appearance normal, both eyes and all related structures; Alignment and Position: alignment normal and position normal Neck: No lymphadenopathy, no thyromegaly Resp: bilateral air entry equal, no added sounds present Cardio: Regular rate, regular rhythm; Heart sounds: S1 normal heart sound present and S2 normal heart sound present GI: soft, nontender, no guarding, no hepatosplenomegaly : bladder normal to inspection, bladder normal to palpation, no renal angle tenderness Skin: no rashes or lesions noted and elasticity normal Neuro: alert, oriented x 3, moves all extremities Objective Data Labs 01/29/25 04:16 01/29/25 04:16 Labs: Laboratory Results - last 24 hr 01/28/25 01/28/25 01/28/25 09:53 11:24 11:45 WBC RBC Hgb Hct MCV MCH MCHC RDW Plt Count MPV Immature Gran % (Auto) Neut % (Auto) Lymph % (Auto) [place] % (Auto) Eos % (Auto) Baso % (Auto) Lymph # (Auto) [place] # (Auto) Eos # (Auto) Baso # (Auto) Abs Immat Gran (auto) Absolute Neuts (auto) Absolute Nucleated RBC Nucleated RBC % (auto) Smear Tech's Comments Absolute Retic 0.130 H Percent Retic 3.2 H Immature Retic Fraction 12.5 Retic Hgb Equivalent 36.0 H aPTT Heparin Protocol 90.7 H 69.9 D Sodium Potassium Chloride Carbon Dioxide Anion Gap BUN Creatinine Estim Creat Clear Calc Estimated GFR POC Glucose 164 H Random Glucose Haptoglobin 37 Calcium Magnesium Total Bilirubin AST ALT Alkaline Phosphatase Lactate Dehydrogenase 302 H Total Protein Albumin MATTHEW, Polyspecific NEGATIVE Positive MATTHEW Work-up Not Reportable 01/28/25 01/28/25 01/28/25 17:22 17:24 19:22 WBC RBC Hgb Hct MCV MCH MCHC RDW Plt Count MPV Immature Gran % (Auto) Neut % (Auto) Lymph % (Auto) [place] % (Auto) Eos % (Auto) Baso % (Auto) Lymph # (Auto) [place] # (Auto) Eos # (Auto) Baso # (Auto) Abs Immat Gran (auto) Absolute Neuts (auto) Absolute Nucleated RBC Nucleated RBC % (auto) Smear Tech's Comments Absolute Retic Percent Retic Immature Retic Fraction Retic Hgb Equivalent aPTT Heparin Protocol 58.3 Sodium Potassium Chloride Carbon Dioxide Anion Gap BUN Creatinine Estim Creat Clear Calc Estimated GFR POC Glucose 151 H 171 H Random Glucose Haptoglobin Calcium Magnesium Total Bilirubin AST ALT Alkaline Phosphatase Lactate Dehydrogenase Total Protein Albumin MATTHEW, Polyspecific Positive MATTHEW Work-up 01/28/25 01/29/25 01/29/25 23:36 03:39 04:16 WBC 8.7 RBC 4.11 L D Hgb 12.3 D Hct 37.5 D MCV 91.2 MCH 29.9 MCHC 32.8 RDW 15.8 Plt Count 178 MPV 11.2 Immature Gran % (Auto) 0.6 H Neut % (Auto) 91.9 H Lymph % (Auto) 6.1 L [place] % (Auto) 1.4 L Eos % (Auto) 0.0 Baso % (Auto) 0.0 Lymph # (Auto) 0.5 L [place] # (Auto) 0.1 Eos # (Auto) 0.0 Baso # (Auto) 0.0 Abs Immat Gran (auto) 0.05 H Absolute Neuts (auto) 8.0 Absolute Nucleated RBC 0.000 Nucleated RBC % (auto) 0.0 Smear Tech's Comments VERIFIED Absolute Retic Percent Retic Immature Retic Fraction Retic Hgb Equivalent aPTT Heparin Protocol 65.1 Sodium 139 Potassium 4.2 Chloride 100 Carbon Dioxide 21 L Anion Gap 22 H BUN 34 H Creatinine 5.44 H* Estim Creat Clear Calc 14.3 Estimated GFR 9 POC Glucose 135 H 178 H Random Glucose 172 H Haptoglobin Calcium 8.8 Magnesium 2.6 Total Bilirubin 0.9 AST 17 ALT 9 Alkaline Phosphatase 171 H Lactate Dehydrogenase Total Protein 7.9 Albumin 4.3 MATTHEW, Polyspecific Positive MATTHEW Work-up 01/29/25 07:23 WBC RBC Hgb Hct MCV MCH MCHC RDW Plt Count MPV Immature Gran % (Auto) Neut % (Auto) Lymph % (Auto) [place] % (Auto) Eos % (Auto) Baso % (Auto) Lymph # (Auto) [place] # (Auto) Eos # (Auto) Baso # (Auto) Abs Immat Gran (auto) Absolute Neuts (auto) Absolute Nucleated RBC Nucleated RBC % (auto) Smear Tech's Comments Absolute Retic Percent Retic Immature Retic Fraction Retic Hgb Equivalent aPTT Heparin Protocol Sodium Potassium Chloride Carbon Dioxide Anion Gap BUN Creatinine Estim Creat Clear Calc Estimated GFR POC Glucose 154 H Random Glucose Haptoglobin Calcium Magnesium Total Bilirubin AST ALT Alkaline Phosphatase Lactate Dehydrogenase Total Protein Albumin MATTHEW, Polyspecific Positive MATTHEW Work-up Microbiology Microbiology Results: Microbiology 01/25/25 08:18 Blood - Venous Blood Culture - Preliminary No growth after 48 hours. 01/25/25 08:18 Blood - Venous Blood Culture - Preliminary No growth after 48 hours. 01/21/25 17:21 Blood - Venous Blood Culture - Final No growth after 5 days. 01/21/25 17:06 Blood - Venous Blood Culture - Final No growth after 5 days. Progress Note: A&P Assessment and plan (1) ESRD on hemodialysis: Status: Acute (2) Multiple sclerosis exacerbation: Status: Acute (3) Status epilepticus: Status: Acute Plan Acute encephalopathy possibly due to seizures and status epilepticus as noted in the EEG Increased Keppra 2 g b.i.d and on valproate 500mg TID Has history of multiple sclerosis, MRI brain showing bilateral diffuse scattered T2 hyperintensities in the deep subcortical and periventricular areas. Received Solu-Medrol loading dose, 250 mg q.6h x 3 days, will decrease the dose to 125mg q6h today Hypertension: On amlodipine, metoprolol and carvedilol PRN hydralazine as needed 10 mg q.6 hour Pulmonary embolus: will stop heparin and restart oral apixaban GI: will consult speech for swallow eval Renal: End-stage renal disease on maintenance hemodialysis MWF last session yesterday We will closely monitor I's and O's Avoid nephrotoxic medications Heme: Chronic anemia related to end-stage renal disease HB 12.3-waiting related to the volume received 2 units PRBC on 01.23.25 LDH and 300s, retic count elevated, haptoglobin normal, pending Cory test transfuse for hemoglobin less than 7 grams/deciliter Endocrine: Blood sugars under control Sliding scale insulin as needed Infectious disease: negative pancultures Musculoskeletal: Decubitus ulcer prevention protocol Lines: 3 peripheral Permacath on right subclavian Prophylaxis: Apixaban, pantoprazole We will transfer her to floor today Quality Stroke Does the patient have a stroke diagnosis?: No VTE Prior VTE?: No VTE Risk Level:: Medical - moderate - high VTE Device Contraindication: Treatment Not Indicated VTE Drug Contraindication: N/A - Med Ordered
[2025-01-29] MEDS: oxyCODONE HCl ER 10 MG TAB.ER.12H PO ×2 (10:34→20:56)
[2025-01-29 11:14] LABS: Glucose, Whole Blood 303 mg/dL (60-115)
--- NOTE | 2025-01-29 13:14 | MHC.CM.PN ---
Pt w/seizures and status epilepticus from EEG: meds adjusted: pt more alert but not back to baseline. Pt from home w/HYDRAULIC MINER/family support: ? needing STR - will await more clinical improvement for evals and STR discussion. CM to follow
[2025-01-29 13:21] LABS: Glucose, Whole Blood 255 mg/dL (60-115)
[2025-01-29] MEDS: oxyCODONE HCl Immed Release 5 MG TABLET 10 MG PO (16:02)
[2025-01-29 16:22] LABS: Glucose, Whole Blood 290 mg/dL (60-115)
--- NOTE | 2025-01-29 16:25 | MHC.SL.SWA ---
Speech Pathologist Impression: WFL Risk of Aspiration Due to: Extensive PMHx Dysphasia Diet Status: UPGRADE to REGULAR/THIN Liquid Consistency and Strategies for Safe Swallow: Liquid Intake Recommendation: Thin Liquid Intake Strategies: Solid Food Consistency: Dietary Recommendations: Regular Additional Modifications to Solid Foods: Condiments/sauces to moisten solids Oral Medication Intake: Whole with Liquid Please contact the pharmacy regarding appropriate crushable or liquid drug formulations that are available whenever modified delivery is recommended. Compensatory Strategies and Precautions to be Taken for Safe Swallow: Supervision While Eating and Drinking for Safe Swallow: Total Assistance (1:1) Foods to Avoid: Swallowing Recommended Treatments: Recommendation for Speech: Inpatient Speech Therapy Comment: Patient presents with oropharyngeal swallowing function deemed WFL. Patient's OME unremarkable. Patient accepting to apple juice via straw; baseline intake method for liquids. Patient also accepting large pieces of alessio cracker. Timely mastication, adequate cohesion and clearance. Recommend UPGRADE to REGULAR solids, THIN liquids with 1:1 feeding assistance and medications WHOLE with liquids. Patient with no overt s/sx of penetration/aspiration. FINISHED CLOTH EXAMINER to follow-up x1 to ensure tolerance. Diet recommendations communicated to RN, RD and MD via secure chat. FINISHED CLOTH EXAMINER changing patient's diet in expanse. Frequency/Duration: M-F Daily Date Range for Service Req: Timeline to reassess: Display Department Manager Clinican/Clinical Fellow: No Supervisory Statement: I have reviewed and agree with the student/clinical fellow's documentation: N/A Speech Language Pathologist: Suzanne Yanez M.A., [facility]-FINISHED CLOTH EXAMINER
--- NOTE | 2025-01-29 17:08 | PC.NURSE ---
Patient refusing telemetry. MD aware
[2025-01-29 20:09] LABS: Glucose, Whole Blood 250 mg/dL (60-115)
[2025-01-29 23:47] LABS: Glucose, Whole Blood 256 mg/dL (60-115)
[2025-01-30 00:27] VITALS: BP 116/73; PULSE 69; RESP 18; TEMP 36.1; O2SAT 98
[2025-01-30 04:00] VITALS: BP 116/68; PULSE 68; RESP 18; TEMP 36.2; O2SAT 96
[2025-01-30 04:21] LABS: Glucose, Whole Blood 188 mg/dL (60-115)
[2025-01-30 06:21] LABS: Hematocrit 31.8 % (37.0-47.0); Hemoglobin 10.6 g/dl (12.0-16.0); Imm Gran Abs Auto 0.11 X10*3/uL (0.00-0.03); Imm Gran Pct Auto 1.2 % (0.0-0.4); Lymphocytes Absolute Auto 0.4 X10*3/uL (1.2-4.9); MANUAL DIFF FLAG SCAN; Mean Corpuscular HGB Conc 33.3 g/dl (31.0-35.0); Mean Corpuscular Hemoglobin 29.7 pg (27.0-33.0); Mean Corpuscular Volume 89.1 fL (80.0-98.0); NRBC Abs Auto 0.000 X10*3/uL (0.0-0.012); NRBC Pct Auto 0.0 /100WBC (0.0-0.2); Platelet Count 127 X10*3/uL (160-400); Red Blood Count 3.57 X10*6/uL (4.20-5.50); SCAN SMEAR FLAG 1; White Blood Count 9.3 X10*3/uL (4.8-10.8)
[2025-01-30 06:40] LABS: Alanine Aminotransferase 8 U/L (0-31); Albumin Level 3.5 g/dL (3.5-5.0); Alkaline Phosphatase 145 U/L (39-117); Anion Gap 21 (12-20); Aspartate Amino Transferase 13 U/L (5-31); Blood Urea Nitrogen 67 mg/dL (9-16); Calcium 7.1 mg/dL (8.4-10.2); Carbon Dioxide 23 mmol/L (22-29); Chloride 91 mmol/L (96-108); Creatinine Clr Calc Pharmacy 10.4; Estimated Glomerular Filt Rate 6; Magnesium 2.4 mg/dL (1.6-2.6); Potassium 5.2 mmol/L (3.3-5.1); Sodium 130 mmol/L (135-145); Total Protein 6.3 g/dL (6.5-8.0)
[2025-01-30] MEDS: oxyCODONE HCl Immed Release 5 MG TABLET 10 MG PO ×4 (07:09→21:32)
[2025-01-30] MEDS: oxyCODONE HCl ER 10 MG TAB.ER.12H PO ×2 (07:09→20:22)
[2025-01-30 07:31] VITALS: BP 119/72; PULSE 72; RESP 16; TEMP 36.1; O2SAT 98
[2025-01-30 07:43] LABS: Glucose, Whole Blood 258 mg/dL (60-115)
[2025-01-30 12:00] VITALS: BP 132/74; PULSE 76; RESP 18; TEMP 36.2; O2SAT 96
--- NOTE | 2025-01-30 12:01 | MHC.CLN ---
NUTRITION DIET ORDER CHANGED PER DIALYSIS PARAMETERS.
[2025-01-30 12:08] LABS: Glucose, Whole Blood 195 mg/dL (60-115)
--- NOTE | 2025-01-30 14:01 | PM.PNNEP ---
Subjective Subjective Date of Service: 01/30/25 Interval history: mental status much better no further seizures on EEG Physical Exam Exam: Exam: Chest: Chest palpation & inspection: normal inspection of the chest Cardio: Jugular venous dis tension: no JVD R hythm: regular rhy thm Heart sounds: S1 normal heart s ound present and S 2 normal heart kelsey nd present GI: Inspection: Yes no rmal to inspection Vital Signs: Vital Signs: Last Vital Signs Temp 97.1 F 01/30/25 12:00 Pulse 76 01/30/25 12:00 Resp 18 01/30/25 12:00 BP 132/74 01/30/25 12:00 Pulse Ox 96 01/30/25 12:00 O2 Del Method Room Air 01/30/25 12:00 O2 Flow Rate 10 01/28/25 18:00 Oxygen Flow Rate 5 01/21/25 16:47 BMI result Body Mass Index 33.8 Objective Data Labs 01/30/25 05:39 01/30/25 05:39 Labs: Laboratory Results - last 24 hr 01/29/25 01/29/25 01/29/25 16:06 19:52 23:43 WBC RBC Hgb Hct MCV MCH MCHC RDW Plt Count MPV Immature Gran % (Auto) Neut % (Auto) Lymph % (Auto) [place] % (Auto) Eos % (Auto) Baso % (Auto) Lymph # (Auto) [place] # (Auto) Eos # (Auto) Baso # (Auto) Abs Immat Gran (auto) Absolute Neuts (auto) Absolute Nucleated RBC Nucleated RBC % (auto) Smear Tech's Comments Sodium Potassium Chloride Carbon Dioxide Anion Gap BUN Creatinine Estim Creat Clear Calc Estimated GFR POC Glucose 290 H 250 H 256 H Random Glucose Calcium Magnesium Total Bilirubin AST ALT Alkaline Phosphatase Total Protein Albumin 01/30/25 01/30/25 01/30/25 04:17 05:39 07:27 WBC 9.3 RBC 3.57 L Hgb 10.6 L Hct 31.8 L MCV 89.1 MCH 29.7 MCHC 33.3 RDW 15.1 Plt Count 127 L D MPV 11.8 Immature Gran % (Auto) 1.2 H Neut % (Auto) 91.7 H Lymph % (Auto) 3.8 L [place] % (Auto) 3.2 Eos % (Auto) 0.0 Baso % (Auto) 0.1 Lymph # (Auto) 0.4 L [place] # (Auto) 0.3 Eos # (Auto) 0.0 Baso # (Auto) 0.0 Abs Immat Gran (auto) 0.11 H Absolute Neuts (auto) 8.6 H Absolute Nucleated RBC 0.000 Nucleated RBC % (auto) 0.0 Smear Tech's Comments VERIFIED Sodium 130 L Potassium 5.2 H D Chloride 91 L Carbon Dioxide 23 Anion Gap 21 H BUN 67 H Creatinine 7.48 H* Estim Creat Clear Calc 10.4 Estimated GFR 6 POC Glucose 188 H 258 H Random Glucose 202 H Calcium 7.1 L D Magnesium 2.4 Total Bilirubin 0.6 AST 13 ALT 8 Alkaline Phosphatase 145 H Total Protein 6.3 L Albumin 3.5 01/30/25 12:03 WBC RBC Hgb Hct MCV MCH MCHC RDW Plt Count MPV Immature Gran % (Auto) Neut % (Auto) Lymph % (Auto) [place] % (Auto) Eos % (Auto) Baso % (Auto) Lymph # (Auto) [place] # (Auto) Eos # (Auto) Baso # (Auto) Abs Immat Gran (auto) Absolute Neuts (auto) Absolute Nucleated RBC Nucleated RBC % (auto) Smear Tech's Comments Sodium Potassium Chloride Carbon Dioxide Anion Gap BUN Creatinine Estim Creat Clear Calc Estimated GFR POC Glucose 195 H Random Glucose Calcium Magnesium Total Bilirubin AST ALT Alkaline Phosphatase Total Protein Albumin Microbiology Microbiology Results: Microbiology 01/25/25 08:18 Blood - Venous Blood Culture - Final No growth after 5 days. 01/25/25 08:18 Blood - Venous Blood Culture - Final No growth after 5 days. 01/21/25 17:21 Blood - Venous Blood Culture - Final No growth after 5 days. 01/21/25 17:06 Blood - Venous Blood Culture - Final No growth after 5 days. Procedures Date of Service Date of Service: 01/30/25 Assessment & Plan Assessment and plan (1) ESRD on hemodialysis: Status: Acute Plan (1) ESRD on hemodialysis: Status: Acute Plan ESRD: usu TTS but as in patient for MWF schedule. HyperK: History of hyperkalemia. 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 Progress Note: Quality Stroke Does the patient have a stroke diagnosis?: No
--- NOTE | 2025-01-30 14:36 | MHC.SL.SWA ---
Speech Pathologist Impression:WFL Risk of Aspiration Due to: Underlying MS Dysphasia Diet Status: MACHINE SNELLER recommends she remain on her baseline diet of Regular Solids and Thin Liquids. Medications Whole with Puree or Liquid, as preferred. No further MACHINE SNELLER intervention is required at this time as she is at her functional baseline. Liquid Consistency and Strategies for Safe Swallow: Liquid Intake Recommendation: Thin Liquid Intake Strategies: Unrestricted Solid Food Consistency: Dietary Recommendations: Regular Oral Medication Intake: Whole with Liquid Please contact the pharmacy regarding appropriate crushable or liquid drug formulations that are available whenever modified delivery is recommended. Compensatory Strategies and Precautions to be Taken for Safe Swallow: Sitting Upright (90 deg) Small Bites and Sips Alternate Liquids/Solids Rate of Ingestion Change Supervision While Eating and Drinking for Safe Swallow: Direct Supervision (1:1) Recommendation for Speech: D/C Comment: Patient presents with oropharyngeal swallowing function deemed WFL. Patient's OME unremarkable. Patient accepting to apple juice via straw; baseline intake method for liquids. Patient also accepting large pieces of alessio cracker. Timely mastication, adequate cohesion and clearance. Recommend UPGRADE to REGULAR solids, THIN liquids with 1:1 feeding assistance and medications WHOLE with liquids. Patient with no overt s/sx of penetration/aspiration. System Safety Manager Clinican/Clinical Fellow: No Supervisory Statement: I have reviewed and agree with the student/clinical fellow's documentation: N/A Speech Language Pathologist: Jesi Montez M.A., [facility]-MACHINE SNELLER
--- NOTE | 2025-01-30 15:40 | PC.NURSE ---
Patient was asking about switching pain medications to IV and getting IV Benadryl for itching, since I am not going home and requesting to speak to provider. Provider Franny came to bedside and discussed discharge and IV medications with patient.
[2025-01-30] MEDS: 0.9 % Sodium Chloride Flush 3 ML SYRINGE IVFLUSH (15:59)
[2025-01-30 16:08] VITALS: BP 138/80; PULSE 75; RESP 18; TEMP 36.7; O2SAT 98
--- NOTE | 2025-01-30 16:15 | MHC.CM.PN ---
PT NOT YET MEDICALLY CLEARED DCP REMAINS HOME WITH RESUMPTION OF SERVICES BLS TRANSPORT
[2025-01-30 16:34] LABS: Glucose, Whole Blood 242 mg/dL (60-115)
--- NOTE | 2025-01-30 18:47 | P.PNIM_ITS ---
Subjective Subjective Date of Service: 01/30/25 Interval History: f/u on seizure no further seizure c/o itchyness Physical Exam 2 Vital Signs: Vital Signs: Last Vital Signs Temp 98.0 F 01/30/25 16:08 Pulse 75 01/30/25 16:08 Resp 18 01/30/25 16:08 BP 138/80 01/30/25 16:08 Pulse Ox 98 01/30/25 16:08 O2 Del Method Room Air 01/30/25 16:08 O2 Flow Rate 10 01/28/25 18:00 Oxygen Flow Rate 5 01/21/25 16:47 BMI result Body Mass Index 33.8 Const: Other: General: AO X 3, no acute distress Resp: CTA bilateral CVS: S1,S2,RRR GI: +BS, NT, no distention Skin: No rash Neuro: motor grossly intact Psych: appropriate affect Objective Data Active Medications Acetaminophen (Acetaminophen 325 Mg Tablet) 975 mg PO Q6H [facility] Last Admin: 01/30/25 14:40 Dose: 975 mg Documented By: NITIN Albuterol Sulfate (Albuterol Sulfate 90 Mcg 8 Gm Inhaler) 2 puff INHALE Q6H PRN PRN Reason: Wheezing Amlodipine Besylate (Amlodipine Besylate 2.5 Mg Tablet) 7.5 mg PO BEDTIME [facility]; Protocol Last Admin: 01/29/25 21:00 Dose: 7.5 mg Documented By: KATIE Apixaban (Apixaban 2.5 Mg Tablet) 2.5 mg PO BID [facility] Last Admin: 01/30/25 07:10 Dose: 2.5 mg Documented By: NITIN Carvedilol (Carvedilol 12.5 Mg Tablet) 12.5 mg PO BID [facility]; Protocol Last Admin: 01/30/25 07:10 Dose: 12.5 mg Documented By: NITIN Dextrose (Dextrose 50 % 25 Gm/50 Ml Syringe) 25 gm IVPUSH Q15M PRN; Protocol PRN Reason: per Hypoglycemia Standing Ord. Diphenhydramine HCl (Diphenhydramine Hcl 50 Mg/Ml Vial) 25 mg IVPUSH Q6H PRN PRN Reason: Itching Last Admin: 01/30/25 18:01 Dose: 25 mg Documented By: BURK Glucose (Glucose Gel 15 Gm Gel..Gram.) 15 gm PO Q15M PRN; Protocol PRN Reason: per Hypoglycemia Standing Ord. Hydralazine HCl (Hydralazine Hcl 50 Mg Tablet) 50 mg PO TID [facility]; Protocol Last Admin: 01/30/25 14:40 Dose: 50 mg Documented By: NITIN Hydralazine HCl (Hydralazine Hcl 20 Mg/Ml Vial) 10 mg IVPUSH Q6H PRN; Protocol PRN Reason: SBP > 160 Last Admin: 01/29/25 03:44 Dose: 10 mg Documented By: NONA Insulin Human Lispro (Insulin Lispro 100 Unit/Ml 3 Ml Vial) 0 unit SUBCUT Q4H [facility]; Protocol Last Admin: 01/30/25 17:09 Dose: 4 unit Documented By: BOWEN Levetiracetam (Levetiracetam 500 Mg Tablet) 1,500 mg PO BID [facility] Last Admin: 01/30/25 07:09 Dose: 1,500 mg Documented By: NITIN Lidocaine (Lidocaine 4 % Patch Adh..Patch) 2 patch TRANSDERMA DAILY [facility]; Protocol Last Admin: 01/30/25 07:11 Dose: Not Given Documented By: NITIN Non-Admin Reason: Patient Refused Methylprednisolone Sodium Succinate (Methylprednisolone Sod Succ 125 Mg/2 Ml Vial) 125 mg IVPUSH Q6H [facility] Last Admin: 01/30/25 15:51 Dose: 125 mg Documented By: BOWEN Nitroglycerin (Nitroglycerin 0.4 Mg Tab.Subl) 0.4 mg SUBLINGUAL Q5MX3 PRN PRN Reason: Angina Oxycodone HCl (Oxycodone Hcl Er 10 Mg Tab.Er.12h) 10 mg PO BID [facility] Last Admin: 01/30/25 07:09 Dose: 10 mg Documented By: NITIN Oxycodone HCl (Oxycodone Hcl Immed Release 5 Mg Tablet) 10 mg PO Q4H PRN PRN Reason: Pain, Severe (Pain Scale 7-10) Last Admin: 01/30/25 14:40 Dose: 10 mg Documented By: NITIN Sodium Chloride (0.9 % Sodium Chloride Flush 3 Ml Syringe) 3 ml IVFLUSH QSHIFT [facility] Last Admin: 01/30/25 15:59 Dose: 3 ml Documented By: BOWEN Valproic Acid (Valproic Acid 250 Mg Capsule) 500 mg PO TID [facility] Last Admin: 01/30/25 14:40 Dose: 500 mg Documented By: NITIN Labs 01/30/25 05:39 01/30/25 05:39 Labs: Laboratory Results - last 24 hr 01/29/25 01/29/25 01/30/25 19:52 23:43 04:17 MCV MCH MCHC RDW Plt Count MPV Immature Gran % (Auto) Neut % (Auto) Lymph % (Auto) [place] % (Auto) Eos % (Auto) Baso % (Auto) Lymph # (Auto) [place] # (Auto) Eos # (Auto) Baso # (Auto) Abs Immat Gran (auto) Absolute Neuts (auto) Absolute Nucleated RBC Nucleated RBC % (auto) Smear Tech's Comments Anion Gap Estim Creat Clear Calc Estimated GFR POC Glucose 250 H 256 H 188 H Random Glucose Calcium Magnesium Total Bilirubin AST ALT Alkaline Phosphatase Total Protein Albumin 01/30/25 01/30/25 01/30/25 05:39 07:27 12:03 MCV 89.1 MCH 29.7 MCHC 33.3 RDW 15.1 Plt Count 127 L D MPV 11.8 Immature Gran % (Auto) 1.2 H Neut % (Auto) 91.7 H Lymph % (Auto) 3.8 L [place] % (Auto) 3.2 Eos % (Auto) 0.0 Baso % (Auto) 0.1 Lymph # (Auto) 0.4 L [place] # (Auto) 0.3 Eos # (Auto) 0.0 Baso # (Auto) 0.0 Abs Immat Gran (auto) 0.11 H Absolute Neuts (auto) 8.6 H Absolute Nucleated RBC 0.000 Nucleated RBC % (auto) 0.0 Smear Tech's Comments VERIFIED Anion Gap 21 H Estim Creat Clear Calc 10.4 Estimated GFR 6 POC Glucose 258 H 195 H Random Glucose 202 H Calcium 7.1 L D Magnesium 2.4 Total Bilirubin 0.6 AST 13 ALT 8 Alkaline Phosphatase 145 H Total Protein 6.3 L Albumin 3.5 01/30/25 16:29 MCV MCH MCHC RDW Plt Count MPV Immature Gran % (Auto) Neut % (Auto) Lymph % (Auto) [place] % (Auto) Eos % (Auto) Baso % (Auto) Lymph # (Auto) [place] # (Auto) Eos # (Auto) Baso # (Auto) Abs Immat Gran (auto) Absolute Neuts (auto) Absolute Nucleated RBC Nucleated RBC % (auto) Smear Tech's Comments Anion Gap Estim Creat Clear Calc Estimated GFR POC Glucose 242 H Random Glucose Calcium Magnesium Total Bilirubin AST ALT Alkaline Phosphatase Total Protein Albumin Microbiology Microbiology Results: Microbiology 01/25/25 08:18 Blood Culture - Final Blood - Venous No growth after 5 days. 01/25/25 08:18 Blood Culture - Final Blood - Venous No growth after 5 days. Assessment and Plan (1) ESRD on hemodialysis: Status: Acute (2) Status epilepticus: Status: Acute Plan Patient was admitted on 01/22 and found to have severe sepsis and pulmonary embolish, Sepsis was treated with broad spec Abx and initiated on Heparin for PE. Over the course of hospitalization, she had seizure/status epilepticus, attributed to MS and was transfered to ICU and treated with IV steroid and Keppra and has since been doing well. Severe sepsis secondary to recent left BKA/amputation stump cellulitis and abscess. Has treatment with broad spec Abx and followed surgery and at this point the surgical site is not considered infected. Should follow with surgery on outpatient basis. Seizure, had seizure on 01/26/25 and tranfser to ICU, and seizure confimred on EEG. She's treated with IV steroid and will transition to oral Prednisone and to continue present dose of Keppra 1500 bid Acute pulmonary embolism RLL. Initially treated with IV heparin and has now been transitioned to Eliquis Elevated troponin. Likely secondary to PE end-stage renal disease. Type 2 diabetes mellitus. Resume home regimen Hypertension, likely renovascular. continue present meds Chronic anemia. Stable. Continue to monitor. History of C. diff. no GI symptoms reported. ESRD. Last HD session was today and completed. Continue HD inpatient. Nephrology consult. Monitor electrolytes and renal function closely. dvt prophylaxis: [employer] Quality Stroke Does the patient have a stroke diagnosis?: No VTE Prior VTE?: No VTE Risk Level:: Medical - moderate - high VTE Device Contraindication: Treatment Not Indicated VTE Drug Contraindication: N/A - Med Ordered
[2025-01-30 19:57] LABS: Glucose, Whole Blood 218 mg/dL (60-115)
[2025-01-30 20:00] VITALS: BP 170/88; PULSE 76; RESP 18; TEMP 36.3; O2SAT 92
[2025-01-31] VITALS: BP 144/70; PULSE 71; RESP 18; TEMP 36.3; O2SAT 95
[2025-01-31 00:17] LABS: Glucose, Whole Blood 357 mg/dL (60-115)
[2025-01-31] MEDS: 0.9 % Sodium Chloride Flush 3 ML SYRINGE IVFLUSH ×3 (00:41→16:46)
[2025-01-31 03:42] LABS: Glucose, Whole Blood 287 mg/dL (60-115)
[2025-01-31 03:52] VITALS: BP 143/85; PULSE 66; RESP 18; TEMP 36.3; O2SAT 99
[2025-01-31 05:56] LABS: Hematocrit 33.6 % (37.0-47.0); Hemoglobin 11.3 g/dl (12.0-16.0); Imm Gran Abs Auto 0.13 X10*3/uL (0.00-0.03); Imm Gran Pct Auto 1.4 % (0.0-0.4); Lymphocytes Absolute Auto 0.2 X10*3/uL (1.2-4.9); MANUAL DIFF FLAG SCAN; Mean Corpuscular HGB Conc 33.6 g/dl (31.0-35.0); Mean Corpuscular Hemoglobin 30.1 pg (27.0-33.0); Mean Corpuscular Volume 89.4 fL (80.0-98.0); NRBC Abs Auto 0.000 X10*3/uL (0.0-0.012); NRBC Pct Auto 0.0 /100WBC (0.0-0.2); Platelet Count 128 X10*3/uL (160-400); Red Blood Count 3.76 X10*6/uL (4.20-5.50); SCAN SMEAR FLAG 1; White Blood Count 9.4 X10*3/uL (4.8-10.8)
[2025-01-31 06:21] LABS: Alanine Aminotransferase 9 U/L (0-31); Albumin Level 3.7 g/dL (3.5-5.0); Alkaline Phosphatase 136 U/L (39-117); Anion Gap 21 (12-20); Aspartate Amino Transferase 11 U/L (5-31); Blood Urea Nitrogen 63 mg/dL (9-16); Calcium 7.6 mg/dL (8.4-10.2); Carbon Dioxide 21 mmol/L (22-29); Chloride 95 mmol/L (96-108); Creatinine Clr Calc Pharmacy 14.2; Estimated Glomerular Filt Rate 9; Magnesium 2.5 mg/dL (1.6-2.6); Potassium 4.5 mmol/L (3.3-5.1); Sodium 132 mmol/L (135-145); Total Protein 6.6 g/dL (6.5-8.0)
[2025-01-31 07:18] LABS: Glucose, Whole Blood 221 mg/dL (60-115)
[2025-01-31 07:42] VITALS: BP 135/87; PULSE 68; RESP 18; TEMP 36.4; O2SAT 99
[2025-01-31] MEDS: Lidocaine 4 % Patch ADH..PATCH 2 PATCH TRANSDERMA (08:06)
[2025-01-31] MEDS: oxyCODONE HCl ER 10 MG TAB.ER.12H PO ×2 (08:12→08:15)
[2025-01-31] MEDS: oxyCODONE HCl Immed Release 5 MG TABLET 10 MG PO (08:19)
--- NOTE | 2025-01-31 09:19 | P.PNIM_ITS ---
Subjective Subjective Date of Service: 01/31/25 Interval History: f/u on seizure no further seizure c/o itchyness, pain and also stays she has not had bowel movment in a month and voiding Physical Exam 2 Vital Signs: Vital Signs: Last Vital Signs Temp 97.5 F 01/31/25 07:42 Pulse 68 01/31/25 07:42 Resp 18 01/31/25 07:42 BP 135/87 01/31/25 07:42 Pulse Ox 99 01/31/25 07:42 O2 Del Method Room Air 01/31/25 07:42 O2 Flow Rate 10 01/28/25 18:00 Oxygen Flow Rate 5 01/21/25 16:47 BMI result Body Mass Index 33.8 Const: Other: General: AO X 3, no acute distress Resp: CTA bilateral CVS: S1,S2,RRR GI: +BS, NT, no distention Skin: No rash, wound d/c/i Neuro: motor grossly intact Psych: appropriate affect Objective Data Active Medications Acetaminophen (Acetaminophen 325 Mg Tablet) 975 mg PO Q6H [facility] Last Admin: 01/31/25 08:11 Dose: 975 mg Documented By: HAIM Albuterol Sulfate (Albuterol Sulfate 90 Mcg 8 Gm Inhaler) 2 puff INHALE Q6H PRN PRN Reason: Wheezing Amlodipine Besylate (Amlodipine Besylate 2.5 Mg Tablet) 7.5 mg PO BEDTIME [facility]; Protocol Last Admin: 01/30/25 20:22 Dose: 7.5 mg Documented By: ETHEL Apixaban (Apixaban 2.5 Mg Tablet) 2.5 mg PO BID [facility] Last Admin: 01/31/25 08:11 Dose: 2.5 mg Documented By: HAIM Bisacodyl (Bisacodyl 5 Mg Tablet.Dr) 10 mg PO BEDTIME PRN PRN Reason: Constipation Last Admin: 01/31/25 00:36 Dose: 10 mg Documented By: ETHEL Carvedilol (Carvedilol 12.5 Mg Tablet) 12.5 mg PO BID [facility]; Protocol Last Admin: 01/31/25 08:11 Dose: 12.5 mg Documented By: HAIM Dextrose (Dextrose 50 % 25 Gm/50 Ml Syringe) 25 gm IVPUSH Q15M PRN; Protocol PRN Reason: per Hypoglycemia Standing Ord. Diphenhydramine HCl (Diphenhydramine Hcl 50 Mg/Ml Vial) 25 mg IVPUSH Q6H PRN PRN Reason: Itching Last Admin: 01/31/25 00:36 Dose: 25 mg Documented By: ETHEL Glucose (Glucose Gel 15 Gm Gel..Gram.) 15 gm PO Q15M PRN; Protocol PRN Reason: per Hypoglycemia Standing Ord. Hydralazine HCl (Hydralazine Hcl 50 Mg Tablet) 50 mg PO TID [facility]; Protocol Last Admin: 01/31/25 08:10 Dose: 50 mg Documented By: HAIM Hydralazine HCl (Hydralazine Hcl 20 Mg/Ml Vial) 10 mg IVPUSH Q6H PRN; Protocol PRN Reason: SBP > 160 Last Admin: 01/29/25 03:44 Dose: 10 mg Documented By: KELLIK Insulin Human Lispro (Insulin Lispro 100 Unit/Ml 3 Ml Vial) 0 unit SUBCUT Q4H [facility]; Protocol Last Admin: 01/31/25 08:04 Dose: 4 unit Documented By: HAIM Levetiracetam (Levetiracetam 500 Mg Tablet) 1,500 mg PO BID [facility] Last Admin: 01/31/25 08:11 Dose: 1,500 mg Documented By: HAIM Lidocaine (Lidocaine 4 % Patch Adh..Patch) 2 patch TRANSDERMA DAILY [facility]; Protocol Last Admin: 01/31/25 08:06 Dose: 2 patch Documented By: HAIM Methylprednisolone Sodium Succinate (Methylprednisolone Sod Succ 125 Mg/2 Ml Vial) 125 mg IVPUSH Q6H [facility] Last Admin: 01/31/25 03:15 Dose: 125 mg Documented By: ETHEL Nitroglycerin (Nitroglycerin 0.4 Mg Tab.Subl) 0.4 mg SUBLINGUAL Q5MX3 PRN PRN Reason: Angina Oxycodone HCl (Oxycodone Hcl Er 10 Mg Tab.Er.12h) 10 mg PO BID [facility] Last Admin: 01/31/25 08:15 Dose: 10 mg Documented By: HAIM Oxycodone HCl (Oxycodone Hcl Immed Release 5 Mg Tablet) 10 mg PO Q4H PRN PRN Reason: Pain, Severe (Pain Scale 7-10) Last Admin: 01/31/25 08:19 Dose: 10 mg Documented By: HAIM Polyethylene Glycol (Polyethylene Glycol 3350 17 Gm Powd.Pack) 17 gm PO DAILY PRN PRN Reason: Constipation Last Admin: 01/30/25 20:41 Dose: 17 gm Documented By: ETHEL Sodium Chloride (0.9 % Sodium Chloride Flush 3 Ml Syringe) 3 ml IVFLUSH QSHIFT [facility] Last Admin: 01/31/25 08:09 Dose: 3 ml Documented By: HAIM Valproic Acid (Valproic Acid 250 Mg Capsule) 500 mg PO TID [facility] Last Admin: 01/31/25 08:12 Dose: 500 mg Documented By: HAIM Labs 01/31/25 05:41 01/31/25 05:41 Labs: Laboratory Results - last 24 hr 01/30/25 01/30/25 01/30/25 12:03 16:29 19:45 MCV MCH MCHC RDW Plt Count MPV Immature Gran % (Auto) Neut % (Auto) Lymph % (Auto) [place] % (Auto) Eos % (Auto) Baso % (Auto) Lymph # (Auto) [place] # (Auto) Eos # (Auto) Baso # (Auto) Abs Immat Gran (auto) Absolute Neuts (auto) Absolute Nucleated RBC Nucleated RBC % (auto) Smear Tech's Comments Anion Gap Estim Creat Clear Calc Estimated GFR POC Glucose 195 H 242 H 218 H Random Glucose Calcium Magnesium Total Bilirubin AST ALT Alkaline Phosphatase Total Protein Albumin 01/31/25 01/31/25 01/31/25 00:14 03:39 05:41 MCV 89.4 MCH 30.1 MCHC 33.6 RDW 15.6 Plt Count 128 L MPV 12.1 Immature Gran % (Auto) 1.4 H Neut % (Auto) 92.9 H Lymph % (Auto) 2.6 L [place] % (Auto) 3.0 Eos % (Auto) 0.0 Baso % (Auto) 0.1 Lymph # (Auto) 0.2 L [place] # (Auto) 0.3 Eos # (Auto) 0.0 Baso # (Auto) 0.0 Abs Immat Gran (auto) 0.13 H Absolute Neuts (auto) 8.7 H Absolute Nucleated RBC 0.000 Nucleated RBC % (auto) 0.0 Smear Tech's Comments VERIFIED Anion Gap 21 H Estim Creat Clear Calc 14.2 Estimated GFR 9 POC Glucose 357 H* 287 H Random Glucose 227 H Calcium 7.6 L D Magnesium 2.5 Total Bilirubin 0.6 AST 11 ALT 9 Alkaline Phosphatase 136 H Total Protein 6.6 Albumin 3.7 01/31/25 07:10 MCV MCH MCHC RDW Plt Count MPV Immature Gran % (Auto) Neut % (Auto) Lymph % (Auto) [place] % (Auto) Eos % (Auto) Baso % (Auto) Lymph # (Auto) [place] # (Auto) Eos # (Auto) Baso # (Auto) Abs Immat Gran (auto) Absolute Neuts (auto) Absolute Nucleated RBC Nucleated RBC % (auto) Smear Tech's Comments Anion Gap Estim Creat Clear Calc Estimated GFR POC Glucose 221 H Random Glucose Calcium Magnesium Total Bilirubin AST ALT Alkaline Phosphatase Total Protein Albumin Microbiology Microbiology Results: Microbiology 01/25/25 08:18 Blood Culture - Final Blood - Venous No growth after 5 days. 01/25/25 08:18 Blood Culture - Final Blood - Venous No growth after 5 days. Assessment and Plan (1) ESRD on hemodialysis: Status: Acute (2) Status epilepticus: Status: Acute Plan Patient was admitted on 01/22 and found to have severe sepsis and pulmonary embolish, Sepsis was treated with broad spec Abx and initiated on Heparin for PE. Over the course of hospitalization, she had seizure/status epilepticus, attributed to MS and was transfered to ICU and treated with IV steroid and Keppra and has since been doing well. Severe sepsis secondary to recent left BKA/amputation stump cellulitis and abscess. Has treatment with broad spec Abx and followed surgery and at this point the surgical site is not considered infected. Should follow with surgery on outpatient basis. Seizure, had seizure on 01/26/25 and tranfser to ICU, and seizure confimred on EEG. She's treated with IV steroid and will transition to oral Prednisone and to continue present dose of Keppra 1500 bid MS on IV steroid, will kennedy down Acute pulmonary embolism RLL. Initially treated with IV heparin and has now been transitioned to Eliquis Elevated troponin. Likely secondary to PE end-stage renal disease. Type 2 diabetes mellitus. Resume home regimen Hypertension, likely renovascular. continue present meds Chronic anemia. Stable. Continue to monitor. History of C. diff. no GI symptoms reported. ESRD. Last HD session was today and completed. Continue HD inpatient. Nephrology consult. Monitor electrolytes and renal function closely. Constipation, claims no bm x 1 month, has bowel regimen xray of abdomen dvt prophylaxis: tee Dispo: eventually home. She does not want to go to rehab Quality Stroke Does the patient have a stroke diagnosis?: No VTE Prior VTE?: No VTE Risk Level:: Medical - moderate - high VTE Device Contraindication: Treatment Not Indicated VTE Drug Contraindication: N/A - Med Ordered
--- NOTE | 2025-01-31 10:39 | PM.DS ---
DS: Providers Provider Date of Service: 01/31/25 Date of admission: 01/21/25 22:11 Date of discharge: 01/31/25 Primary care physician: Genevieve Casillas MD Consults: 01/21/25 22:46 Consult to Nephrology Routine Consulting Provider: [facility] Reason for consultation: Inpatient dialysis Has provider been notified: No 01/21/25 23:04 Consult to General Surgery Routine Consulting Provider: [facility] General Surgeons Reason for consultation: Left BKA/stump abscess Has provider been notified: Yes 01/25/25 07:23 Consult to Psychiatry Routine Consulting Provider: [facility] Psych Covering Reason for consultation: SI 01/25/25 07:56 Consult to Nephrology Stat Consulting Provider: [facility] Reason for consultation: might need urgent HD, AMS 01/25/25 13:13 Consult to Neurology Routine Consulting Provider: [facility] Reason for consultation: AMS 01/25/25 13:31 Consult to Critical Care Routine Consulting Provider: Marquis Briggs Reason for consultation: acute AMS, seizures? , airway protection 01/26/25 10:18 Consult to Wound Care Routine Consulting Provider: [facility] Wound Care Management Reason for consultation: right transmetatarsal amp site, left BKA site Has provider been notified: Yes DS: Diagnosis Discharge Diagnosis (1) ESRD on hemodialysis: Status: Acute (2) Multiple sclerosis exacerbation: Status: Acute (3) Status epilepticus: Status: Acute DS: Summary Hospital Course Hospital Course: [facility] Complaint: I feel weird Shereen Taylor is a 34 years old woman with past medical history significant for chronic foot ulcers, recent left BKA (Jan [address] Rajput) end-stage renal disease on hemodialysis, type 2 diabetes mellitus on insulin, hypertension, blindness, HFrEF (EF 51%), chronic anemia, PAD and c. diff infection presents to the emergency department complaining of feeling weird. She mentioned that her blood pressure dropped during dialysis today. The dialysis was completed. She also complained chills and feeling cold. She also reports some shortness on breath but denied chest pain or cough. She did not report any acute gastrointestinal or genitourinary symptoms. In the ED, she was found to have fever, max 102.3 and sinus tachycardia. Blood pressure has been stable. Blood workup showed WBC count of 6.3, hemoglobin 7.9 and platelets 208. There is neutrophilia of 93.5. PH is 7.57 and pCO2 28. There are no significant electrolyte imbalances. Anion gap is 22, BUN is 37 and creatinine 6.39. Initial lactic acid was 6.9, most recent 1 is 1.4. Total bilirubin is 1.1, AST 44, ALT 21, alk-phos 235, troponin 33.9 and pro BNP 925383.7. Left femoral CT scan with IV contrast showed in the finding partially rim enhancing complex fluid collection along the medial side of the amputation stump measuring 4.2 by 1.5 x 2.4 cm concerning for abscess. Chest CTA showed pulmonary embolism in the right lower lobe segmental and subsegmental branches and small pericardial effusion. Abdominal pelvis CT scan showed mild diffuse urinary bladder wall thickening correlate for cystitis and no other acute findings. ED Tx: Vancomycin 2 g IV, Zosyn 4.5 g IV, LR 500 mL, Dilaudid 0.5 mg IV, Tylenol 1 g IV Hospital course: Patient was admitted on 01/22 and found to have severe sepsis and pulmonary embolish, Sepsis was treated with broad spec Abx and initiated on Heparin for PE. Over the course of hospitalization, she had seizure/status epilepticus, attributed to MS and was transferred to ICU and treated with IV steroid and Keppra and has since been doing well. Severe sepsis secondary to recent left BKA/amputation stump cellulitis and abscess. Has treatment with broad spec Abx and followed surgery and at this point the surgical site is not considered infected. Should follow with surgery on outpatient basis. Should follow up with surgery for suture removal, would not wait another day for surgery to remove Seizure, had seizure on 01/26/25 and transferred to ICU, and seizure confirmed on EEG. She's treated with IV steroid and will transition to oral Prednisone and to continue present dose of Keppra 1500 mg and valproic acid Acute pulmonary embolism RLL. Initially treated with IV heparin and has now been transitioned to Eliquis 2.5 mg twice daily Elevated troponin. Likely secondary to PE end-stage renal disease. Type 2 diabetes mellitus. 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 continue present meds Chronic anemia. Stable. Continue to monitor. History of C. diff. no GI symptoms reported. ESRD. Last HD session was today and completed. Continue HD inpatient. Nephrology consult. Monitor electrolytes and renal function closely. Constiapation d/t opioid use. bowel regimen added Time Attestation Discharge Coordination Time (in mins): 45 Quality: Safe Use of Opioids Does Pt have an Active Cancer Diagnosis on the Problem List?: No Quality: Stroke Does the patient have a stroke diagnosis?: No Physical Exam Vital Signs: Vital Signs: Last Vital Signs Temp 97.0 F 01/30/25 07:31 Pulse 72 01/30/25 07:31 Resp 16 01/30/25 07:31 BP 119/72 01/30/25 07:31 Pulse Ox 98 01/30/25 07:31 O2 Del Method Room Air 01/30/25 07:31 O2 Flow Rate 10 01/28/25 18:00 Oxygen Flow Rate 5 01/21/25 16:47 BMI result Body Mass Index 33.8 DS: Data Data Completed and Pending Completed studies during hospitalization [Text1]: Procedures Detachment at Left 2nd Toe, Complete, Open Approach (09/08/23) Detachment at Left 3rd Toe, Complete, Open Approach (09/08/23) Detachment at Left 4th Toe, Complete, Open Approach (09/08/23) Detachment at Left Lower Leg, High, Open Approach (12/23/24) Detachment at Right Foot, Partial 1st Ray, Open Approach (03/01/20) Detachment at Right Foot, Partial 2nd Ray, Open Approach (03/01/20) Detachment at Right Foot, Partial 3rd Ray, Open Approach (03/01/20) Detachment at Right Foot, Partial 4th Ray, Open Approach (03/01/20) Detachment at Right Foot, Partial 5th Ray, Open Approach (03/01/20) Drainage of Right Pleural Cavity, Percutaneous Approach (01/14/21) Drainage of Spinal Canal, Percutaneous Approach, Diagnostic (09/05/24) Excision of Left Foot Muscle, Open Approach (01/14/24) Excision of Left Foot Skin, External Approach (10/08/23) Excision of Left Foot Subcutaneous Tissue and Fascia, Open Approach (10/29/24) Excision of Right Foot Skin, External Approach (07/31/24) Excision of Stomach, Pylorus, Via Natural or Artificial Opening Endoscopic, Diagnostic (08/27/22) Fluoroscopy of Spinal Cord (09/05/24) Fluoroscopy of Superior Vena Cava, Guidance (08/14/22) Insertion of Endotracheal Airway into Trachea, Via Natural or Artificial Opening (11/10/23) Insertion of Infusion Device into Right Atrium, Percutaneous Approach (02/25/24) Insertion of Infusion Device into Superior Vena Cava, Percutaneous Approach (05/25/24) Insertion of Infusion Device into Upper Vein, Percutaneous Approach (01/14/24) Insertion of Tunneled Vascular Access Device into Chest Subcutaneous Tissue and Fascia, Percutaneous Approach (05/25/24) Introduction of Other Thrombolytic into Peripheral Vein, Percutaneous Approach (09/05/24) Introduction of Vasopressor into Peripheral Vein, Percutaneous Approach (11/10/23) Isolation (11/10/23) Performance of Urinary Filtration, Intermittent, Less than 6 Hours Per Day (12/23/24) Removal of Infusion Device from Great Vessel, External Approach (01/14/21) Removal of Infusion Device from Great Vessel, Percutaneous Approach (05/25/24) Removal of Infusion Device from Heart, External Approach (01/14/24) Removal of Tunneled Vascular Access Device from Trunk Subcutaneous Tissue and Fascia, Open Approach (05/25/24) Respiratory Ventilation, Greater than 96 Consecutive Hours (11/10/23) Transfusion of Nonautologous Red Blood Cells into Peripheral Vein, Percutaneous Approach (11/10/23) Ultrasonography of Superior Vena Cava, Guidance (02/25/24) Labs on day of discharge: Laboratory Results - last 24 hr 01/29/25 01/29/25 01/29/25 11:10 13:17 16:06 WBC RBC Hgb Hct MCV MCH MCHC RDW Plt Count MPV Immature Gran % (Auto) Neut % (Auto) Lymph % (Auto) [place] % (Auto) Eos % (Auto) Baso % (Auto) Lymph # (Auto) [place] # (Auto) Eos # (Auto) Baso # (Auto) Abs Immat Gran (auto) Absolute Neuts (auto) Absolute Nucleated RBC Nucleated RBC % (auto) Smear Tech's Comments Sodium Potassium Chloride Carbon Dioxide Anion Gap BUN Creatinine Estim Creat Clear Calc Estimated GFR POC Glucose 303 H 255 H 290 H Random Glucose Calcium Magnesium Total Bilirubin AST ALT Alkaline Phosphatase Total Protein Albumin 01/29/25 01/29/25 01/30/25 19:52 23:43 04:17 WBC RBC Hgb Hct MCV MCH MCHC RDW Plt Count MPV Immature Gran % (Auto) Neut % (Auto) Lymph % (Auto) [place] % (Auto) Eos % (Auto) Baso % (Auto) Lymph # (Auto) [place] # (Auto) Eos # (Auto) Baso # (Auto) Abs Immat Gran (auto) Absolute Neuts (auto) Absolute Nucleated RBC Nucleated RBC % (auto) Smear Tech's Comments Sodium Potassium Chloride Carbon Dioxide Anion Gap BUN Creatinine Estim Creat Clear Calc Estimated GFR POC Glucose 250 H 256 H 188 H Random Glucose Calcium Magnesium Total Bilirubin AST ALT Alkaline Phosphatase Total Protein Albumin 01/30/25 01/30/25 05:39 07:27 WBC 9.3 RBC 3.57 L Hgb 10.6 L Hct 31.8 L MCV 89.1 MCH 29.7 MCHC 33.3 RDW 15.1 Plt Count 127 L D MPV 11.8 Immature Gran % (Auto) 1.2 H Neut % (Auto) 91.7 H Lymph % (Auto) 3.8 L [place] % (Auto) 3.2 Eos % (Auto) 0.0 Baso % (Auto) 0.1 Lymph # (Auto) 0.4 L [place] # (Auto) 0.3 Eos # (Auto) 0.0 Baso # (Auto) 0.0 Abs Immat Gran (auto) 0.11 H Absolute Neuts (auto) 8.6 H Absolute Nucleated RBC 0.000 Nucleated RBC % (auto) 0.0 Smear Tech's Comments VERIFIED Sodium 130 L Potassium 5.2 H D Chloride 91 L Carbon Dioxide 23 Anion Gap 21 H BUN 67 H Creatinine 7.48 H* Estim Creat Clear Calc 10.4 Estimated GFR 6 POC Glucose 258 H Random Glucose 202 H Calcium 7.1 L D Magnesium 2.4 Total Bilirubin 0.6 AST 13 ALT 8 Alkaline Phosphatase 145 H Total Protein 6.3 L Albumin 3.5 Discharge Plan Discharge Anticipated Discharge Date/Time: 01/30/25 10:43 Patient Disposition: Home Health Service Discharge Diagnosis: Sepsis, abscess, seizure Referrals: [facility] [Outside] - 1 Week Genevieve Gtz MD [Primary Care Provider, Internal Medicine] - 1 Week Discharge Medications: New levetiracetam 500 mg Tablet 1,500 mg PO BID Qty: 180 0RF amlodipine 2.5 mg Tablet 7.5 mg PO BEDTIME Qty: 90 0RF Protocol: Hold for SBP< HOLD for SBP < : 90 Eliquis 2.5 mg Tablet 2.5 mg PO BID Qty: 180 0RF polyethylene glycol 3350 17 gram Powder In Packet 17 g PO DAILY PRN (Reason: Constipation) Qty: 30 0RF valproic acid 250 mg Capsule 500 mg PO TID Qty: 270 0RF bisacodyl 5 mg Tablet,Delayed Release (Dr/Ec) 10 mg PO BEDTIME PRN (Reason: Constipation) Qty: 90 0RF docusate sodium [Colace] 100 mg capsule 100 mg PO BID Qty: 180 0RF insulin lispro [Admelog SoloStar U-100 Insulin] 100 unit/mL insulin pen 1 sliding scale dose subcut USEASDIRECTD MDD 45 Qty: 15 0RF Rx Instructions: BG <111 0 units, 111-150 - 0 units, 151-200 2 units, 201-250 4 units, 251-300 6 units, 301-350 8 units, >350 10 units prednisone 10 mg tablet See Taper PO DAILY Qty: 20 0RF Taper: Prednisone 40 mg daily for 3 Days and 0 Hour 30 mg daily for 3 Days and 0 Hour 20 mg daily for 3 Days and 0 Hour 10 mg daily for 3 Days and 0 Hour (DME) commode Kit See Rx Instructions .Route Qty: 1 0RF Rx Instructions: As directed dextrose [Glucose Gel] 40 % gel 15 g PO Q15M PRN (Reason: For blood sugar less than 70) Qty: 300 0RF Rx Instructions: until symptoms of low blood sugar are controlled Continued carvedilol 12.5 mg Tablet 12.5 mg PO BID 90 Days Qty: 180 0RF Protocol: Hold for SBP/HR < HOLD for SBP < : 90 HOLD for HR < : 60 hydralazine 50 mg Tablet 50 mg PO TID 90 Days Qty: 270 0RF Protocol: Hold for SBP< HOLD for SBP < : 90 (DME) FreeStyle Lite Strips Strip Qty: 100 0RF Rx Instructions: Test four times a day or as directed. (DME) blood-glucose meter [FreeStyle Lite Meter] Kit Qty: 1 0RF Rx Instructions: As Directed (DME) pen needle, diabetic 32 gauge x 1/4 needle Qty: 100 0RF Rx Instructions: Use four times a day or as directed. (DME) lancets [FreeStyle Lancets] 28 gauge misc Qty: 100 0RF Rx Instructions: Test four times a day or as directed. metoclopramide HCl [Reglan] 10 mg tablet 10 mg PO Q6H PRN (Reason: nausea and vomiting) Qty: 14 0RF nitroglycerin 0.4 mg tablet, sublingual 0.4 mg sublingual DIRECTED PRN (Reason: Angina) albuterol sulfate [Ventolin HFA] 90 mcg/actuation HFA aerosol inhaler 2 puff inhalation Q6H PRN (Reason: wheezing) calcium carbonate [Tums] 200 mg calcium (500 mg) Tablet,Chewable 200 mg PO TIDWM PRN (Reason: Acid Reflux) acetaminophen 325 mg tablet 975 mg PO Q4H PRN (Reason: mild pain) 30 Days Qty: 90 0RF oxycodone 10 mg tablet 10 mg PO Q8H PRN (Reason: pain) 5 Days Qty: 24 0RF Rx Instructions: Partial Fill upon patient request. oxycodone [OxyContin] 10 mg Tablet,Oral Only,Ext.Rel.12 Hr 10 mg PO BID 10 Days Qty: 20 0RF Rx Instructions: Partial Fill upon patient request. Discontinued hydromorphone [Dilaudid] 4 mg tablet 4 mg PO Q6H PRN (Reason: pain) Qty: 20 0RF Rx Instructions: Partial Fill upon patient request. Discharge Orders: Discharge Order (Routine); Ordered 01/31/25 Ordered By: Contreras Blanton Diet: Diabetic diet Activity on Discharge: As tolerated Stand Alone Forms: Patient Portal Discharge page Print Language: Micronesian Care Plan Goals: recvoery from ampuation site infection and seizures Health Concerns: amputation site wound seizure constiaption diabetes Plan of Treatment: take seizure medication as directed including Keppra and Valprioic acid and follow up with Neurologist Follow up with surgery to have sutures removed take insulin as directed according to the scale given to you DO NOT take insulin unless you check your sugar take Eliquis as directed for blood clot Follow up with your doctor in a week If you develop low sugar like less than 70 or have symptoms of hypglycemia (low blood sugar) with confusion, agitation, sweating and other unsual symptoms take orange juice or take glucgel Assessment: see above Patient Instructions: Sepsis (DC), Nonepileptic Seizures (DC), Type 2 Diabetes Management for Adults (DC) Discharge Date/Time: 01/31/25 18:38
[2025-01-31 12:21] LABS: Glucose, Whole Blood 280 mg/dL (60-115)
[2025-01-31 13:44] VITALS: BP 125/75; PULSE 70; RESP 18; TEMP 36.2; O2SAT 98
--- NOTE | 2025-01-31 14:49 | PC.NURSE ---
Patient wishes to discharge home later today, discussed with MD Blanton and Family at bedside, all in agreement.
[2025-01-31 15:13] VITALS: BP 149/73; PULSE 71; RESP 18; TEMP 36.1; O2SAT 97
--- NOTE | 2025-01-31 15:21 | PC.NURSE ---
Pt to stay until tomorrow, Hx of Non compliance, Gen Surg to remove sutures tomorrow and then dc home.
--- NOTE | 2025-01-31 15:43 | PC.NURSE ---
Paper script given to patient for seizure pads to bring to [facility].
[2025-01-31 16:13] LABS: Glucose, Whole Blood 286 mg/dL (60-115)
--- NOTE | 2025-01-31 16:13 | MHC.CM.PN ---
IVAN MET WITH PT TO DISCUSS DCP PT STATES SHE WANTS TO DC AND FEELS WELL SHE SAYS HER SISTER THOUGHT SHE HAD NOT HAD A BM IN A MONTH, BUT STATES THAT IS NOT ACCURATE SHE SAYS SHE DOES NEED SOME SCRIPTS FOR BED RAILS/PADS, IN CASE OF A SEIZURE, AND A COMMODE, RELAYED TO MD PT STATES SHE WOULD LIKE TO DC THIS EVENING BLS TRANSPORT ARRANGED WITH ANAID FOR 1730 HOURS
--- NOTE | 2025-01-31 18:20 | PC.NURSE ---
Primary RN to take out IV's before patient leaves. Agrees to follow up out patient for sutures.
--- NOTE | 2025-02-01 12:41 | W.MHC.F2F ---
Service Date Service Date: 01/31/25 Encounter Date of encounter: 01/31/25 Reasons for Services Signs and symptoms assessed: sepsis, s/p amputation and seizure Reason for half-way: medication management, medication treatment and teach disease management Homebound: Leaving the home is medically contraindicated at this time without the asist of a device and/or another person due th the listed conditions above and below. Reason homebound: poor balance / fall risk, non-weight bearing, unable to drive and legally blind Homebound supporting statement: legally blind, recent bka, flutuating sugars, seizure and thereofore needs the assistance of another person Certification: Based on the above findings, I certify that this patient is confined to the home and needs intermittent half-way care, physical therapy and/or speech therapy, or continues to need occupational therapy. The patient is under my care, and I have initiated the establishment of the plan of care. The patient will be followed by a physician who will periodically review the plan of care. Time Spent With Patient Time: Total time managing care of this patient today ____ minutes.
== END 2025-01-31 18:38 | disposition home health service (06) | DRG 564 ==
LOC: HO.ED 18:12 → HO.EDOVER 22:17 → HO.IMC 23:51 → HO.ICU 01-26 03:54 → HO.S3 01-29 13:11
PROVIDERS: Internal Medicine Critical Care Medicine; Internal Medicine Pulmonary Disease; Physician Assistant Medical; Registered Nurse Community Health; Student in an Organized Health Care Education/Training Program; Admitting Provider Internal Medicine; Emergency Provider Student in an Organized Health Care Education/Training Program; PCP Student in an Organized Health Care Education/Training Program; Visit Provider Internal Medicine
DX: T87.44 Infection of amputation stump, left lower extremity (principal); A41.9 Sepsis, unspecified organism; N18.6 End stage renal disease; I26.99 Other pulmonary embolism without acute cor pulmonale; I26.94 Multiple subsegmental thrombotic pulmonary emboli without acute cor pulmonale; I21.A1 Myocardial infarction type 2; R65.20 Severe sepsis without septic shock; I13.2 Hypertensive heart and chronic kidney disease with heart failure and with stage 5 chronic kidney disease, or end stage renal disease; L03.116 Cellulitis of left lower limb; D62 Acute posthemorrhagic anemia; I50.22 Chronic systolic (congestive) heart failure; I16.1 Hypertensive emergency; D63.1 Anemia in chronic kidney disease; E11.22 Type 2 diabetes mellitus with diabetic chronic kidney disease; Z99.2 Dependence on renal dialysis; Z91.158 Patient's noncompliance with renal dialysis for other reason; Z79.52 Long term (current) use of systemic steroids; Z20.822 Contact with and (suspected) exposure to COVID-19; E11.51 Type 2 diabetes mellitus with diabetic peripheral angiopathy without gangrene; E11.42 Type 2 diabetes mellitus with diabetic polyneuropathy; E11.319 Type 2 diabetes mellitus with unspecified diabetic retinopathy without macular edema; N25.0 Renal osteodystrophy; G89.4 Chronic pain syndrome; G40.901 Epilepsy, unspecified, not intractable, with status epilepticus; G35.A Relapsing-remitting multiple sclerosis; K59.03 Drug induced constipation; H54.61 Unqualified visual loss, right eye, normal vision left eye; T40.2X5A Adverse effect of other opioids, initial encounter; Z79.4 Long term (current) use of insulin; Z79.899 Other long term (current) drug therapy
CPT/HCPCS: 36415; 36600; 70450; 70553; 71045; 71275; 73701; 74018; 74177; 80048; 80053; 80202; 82010; 82140; 82607; 82728; 82746; 82803; 82947; 83010; 83540; 83605; 83615; 83735; 83880; 84100; 84484; 85014; 85018; 85025; 85027; 85045; 85610; 85730; 86850; 86880; 86900; 86901; 86923; 87040; 87637; 90999; 92526; 92610; 93005; 95705; 95813; 95816; 99285; A9585; J0131; J0360; J0616; J0737; J1171; J1200; J1644; J1885; J1920; J1953; J2250; J2312; J2470; J2543; J2919; J3010; J3360; J3373; J3475; J7120; P9016; Q5106; Q9967

== ENCOUNTER → 2025-01-21 16:54 | Outpatient (BNV) | payer OTHER, SELFPAY | PROVIDERS: Admitting Provider Internal Medicine; Emergency Provider Student in an Organized Health Care Education/Training Program; Visit Provider Internal Medicine Cardiovascular Disease | DX: I45.10 Unspecified right bundle-branch block (principal); R00.0 Tachycardia, unspecified | CPT/HCPCS: 93010 ==

== ENCOUNTER → 2025-01-21 17:03 | Outpatient (BNV) | payer OTHER, SELFPAY | PROVIDERS: Emergency Provider Student in an Organized Health Care Education/Training Program; Visit Provider Radiology Diagnostic Radiology | DX: A41.9 Sepsis, unspecified organism (principal); R93.5 Abnormal findings on diagnostic imaging of other abdominal regions, including retroperitoneum; I26.99 Other pulmonary embolism without acute cor pulmonale; I31.39 Other pericardial effusion (noninflammatory); T87.44 Infection of amputation stump, left lower extremity; R91.8 Other nonspecific abnormal finding of lung field; Z45.2 Encounter for adjustment and management of vascular access device | CPT/HCPCS: 71045; 71275; 73701; 74177 ==

== ENCOUNTER 2025-01-21 22:11 | Outpatient (BNV) | payer OTHER, SELFPAY | END 2025-01-25 08:06 | PROVIDERS: Admitting Provider Internal Medicine; Emergency Provider Student in an Organized Health Care Education/Training Program; Visit Provider Internal Medicine | DX: I45.10 Unspecified right bundle-branch block (principal) | CPT/HCPCS: 93010 ==

== ENCOUNTER 2025-01-21 22:11 | Outpatient (BNV) | payer OTHER, SELFPAY | END 2025-01-25 09:05 | PROVIDERS: Admitting Provider Internal Medicine; Emergency Provider Student in an Organized Health Care Education/Training Program; Visit Provider Radiology Diagnostic Radiology | DX: I67.82 Cerebral ischemia (principal); R90.82 White matter disease, unspecified; K63.89 Other specified diseases of intestine; I26.99 Other pulmonary embolism without acute cor pulmonale; L02.416 Cutaneous abscess of left lower limb; L02.415 Cutaneous abscess of right lower limb; R41.82 Altered mental status, unspecified | CPT/HCPCS: 70450; 70553; 71275; 73701; 74177 ==

== ENCOUNTER 2025-01-21 22:11 | Outpatient (BNV) | payer OTHER, SELFPAY | END 2025-01-28 15:45 | PROVIDERS: Admitting Provider Internal Medicine; Emergency Provider Student in an Organized Health Care Education/Training Program; PCP Student in an Organized Health Care Education/Training Program; Visit Provider Psychiatry & Neurology Neurology | DX: R94.01 Abnormal electroencephalogram [EEG] (principal); G40.419 Other generalized epilepsy and epileptic syndromes, intractable, without status epilepticus | CPT/HCPCS: 95816 ==

== ENCOUNTER 2025-01-21 22:11 | Outpatient (BNV) | payer OTHER, SELFPAY | END 2025-01-27 10:00 | PROVIDERS: Admitting Provider Internal Medicine; Emergency Provider Student in an Organized Health Care Education/Training Program; PCP Student in an Organized Health Care Education/Training Program; Visit Provider Psychiatry & Neurology Neurology | DX: R94.01 Abnormal electroencephalogram [EEG] (principal); G40.419 Other generalized epilepsy and epileptic syndromes, intractable, without status epilepticus | CPT/HCPCS: 95816 ==

== ENCOUNTER 2025-01-21 22:11 | Outpatient (BNV) | payer OTHER, SELFPAY | END 2025-01-26 01:24 | PROVIDERS: Admitting Provider Internal Medicine; Emergency Provider Student in an Organized Health Care Education/Training Program; Visit Provider Radiology Diagnostic Radiology | DX: Z03.89 Encounter for observation for other suspected diseases and conditions ruled out (principal) | CPT/HCPCS: 71045 ==

== ENCOUNTER 2025-01-21 22:11 | Outpatient (BNV) | payer OTHER, SELFPAY | END 2025-01-24 14:29 | PROVIDERS: Admitting Provider Internal Medicine; Emergency Provider Student in an Organized Health Care Education/Training Program; Visit Provider Radiology Diagnostic Radiology | DX: R10.9 Unspecified abdominal pain (principal); T82.848A Pain due to vascular prosthetic devices, implants and grafts, initial encounter | CPT/HCPCS: 71045; 74018 ==

== ENCOUNTER 2025-01-21 22:11 | Outpatient (BNV) | payer OTHER, SELFPAY | END 2025-01-31 13:50 | PROVIDERS: Admitting Provider Internal Medicine; Emergency Provider Student in an Organized Health Care Education/Training Program; PCP Student in an Organized Health Care Education/Training Program; Visit Provider Radiology Diagnostic Radiology | DX: K59.00 Constipation, unspecified (principal) | CPT/HCPCS: 74018 ==

== ENCOUNTER → 2025-01-21 22:11 | Outpatient (BNV) | payer OTHER, SELFPAY | PROVIDERS: Admitting Provider Internal Medicine; Emergency Provider Student in an Organized Health Care Education/Training Program; Visit Provider Registered Nurse Community Health | DX: G40.901 Epilepsy, unspecified, not intractable, with status epilepticus (principal); G35.D Multiple sclerosis, unspecified; I67.4 Hypertensive encephalopathy; N18.6 End stage renal disease; Z99.2 Dependence on renal dialysis; I42.9 Cardiomyopathy, unspecified | CPT/HCPCS: 99233 ==

== ENCOUNTER → 2025-01-21 22:11 | Outpatient (BNV) | payer OTHER, SELFPAY | PROVIDERS: Admitting Provider Internal Medicine; Emergency Provider Student in an Organized Health Care Education/Training Program; Visit Provider Internal Medicine Pulmonary Disease | DX: A41.9 Sepsis, unspecified organism (principal); R65.20 Severe sepsis without septic shock | CPT/HCPCS: 99232 ==

== ENCOUNTER → 2025-01-21 22:11 | Outpatient (BNV) | payer OTHER, SELFPAY | PROVIDERS: Admitting Provider Internal Medicine; Emergency Provider Student in an Organized Health Care Education/Training Program; Visit Provider Psychiatry & Neurology Neurology | DX: I67.4 Hypertensive encephalopathy (principal) | CPT/HCPCS: 99222 ==

== ENCOUNTER → 2025-01-21 22:11 | Outpatient (BNV) | payer OTHER, SELFPAY | PROVIDERS: Admitting Provider Internal Medicine; Emergency Provider Student in an Organized Health Care Education/Training Program; Visit Provider Internal Medicine | DX: A41.9 Sepsis, unspecified organism (principal); R65.20 Severe sepsis without septic shock | CPT/HCPCS: 99233; 99499 ==

== ENCOUNTER → 2025-01-21 22:11 | Outpatient (BNV) | payer OTHER, SELFPAY | PROVIDERS: Admitting Provider Internal Medicine; Emergency Provider Student in an Organized Health Care Education/Training Program; Visit Provider Surgery | DX: Z89.512 Acquired absence of left leg below knee (principal) | CPT/HCPCS: 99024 ==

== ENCOUNTER 2025-02-01 21:05 | Inpatient (IN) | payer OTHER, SELFPAY ==
--- NOTE | ~2025-02-01 | XR_ITS ---
EXAMINATION: XR KNEE, LEFT CLINICAL INFORMATION: s/p fall L BKA COMPARISON: January 05, 2022 TECHNIQUE: AP and lateral views of the left knee/stump. FINDINGS: Status post amputation 13 cm below the knee. Degenerative changes in the medial lateral compartment. No osteolysis. No periosteal bone resorption. No periosteal bone reaction. No subcutaneous emphysema. No lytic or blastic lesions. Vascular calcifications. No suprapatellar bursa joint effusion. XR/XR knee LT 2V IMPRESSION: Status post below-knee amputation. No gross osteomyelitis. Atherosclerosis disease, peripheral. Electronically signed by: Shadi Lopez MD 02/02/2025 08:44 AM EST
--- NOTE | ~2025-02-01 | XR_ITS ---
EXAMINATION: XR FEMUR, LEFT CLINICAL INFORMATION: s/p fall pt is wc bound COMPARISON: Correlated to CT dated January 21, 2025. TECHNIQUE: AP and lateral views of the left femur were obtained. FINDINGS: No acute cortical disruption. No lytic or blastic lesions. No periosteal bone reaction. No osteolysis. No subcutaneous emphysema. Vascular calcifications. Status post below-knee amputation. XR/XR femur LT 2V IMPRESSION: No acute fracture. No gross osteomyelitis. Atherosclerosis disease, peripheral. Electronically signed by: Shadi Lopez MD 02/02/2025 08:48 AM EST
[2025-02-01 21:18] VITALS: BP 156/78; BP 185/86; PULSE 83; PULSE 86; RESP 18; TEMP 36.5; O2SAT 96; O2SAT 99; BMI 31.0
[2025-02-01 21:23] VITALS: BP 185/86; PULSE 86; RESP 18; TEMP 36.5; O2SAT 99
--- OUTSIDE RECORDS SUMMARY | 2025-02-01 21:33 | XMS_ITS | Encounter Summary ---
Author Organization [employer] Address [address] [facility] 7t [place] [address] Care Team Providers Care Solar Resource Assessor Name Role Phone Genevieve Gtz MD Primary Care Pro vider Reason for Visit * Reason Onset Date Comments Med Refill 12/04/2024 Encounter Details Date Type Department Care Team ([facility] Contact Info) Description 12/04/2024 Telephone [facility] MEDICINE [address] [place] [address] Genevieve Gtz MD [address] [place], [place] [phone] Med Refill Social History Tobacco Use Types [...] tablet To be sent to: - [id number] documented in this encounter Plan of Treatment Upcoming Encounters Date Type Department Care Team (Late st Contact Info) Description 02/05/2025 10:45 AM EST Office Visit [facility] MEDICINE [address] [place] [address] Sarah Peres MD [address] [place] [address] 02/11/2025 2:45 PM EST Clinical Support [facility] CHC MED & PEDS [address] [place] [address] Paola Thurston, KIRIT [address] [place] [address] documented as of this encounter Goals Goal Patient Goal Type Associated Problems Recent Progress Patient-Stated? Author Blood Pressure < 140/90 Blood Pressure 129/75(2024 9:08 AM EST) No Sampognaro, Jaime Hemoglobin A1c < 8 Result Component 5.7( 5 9:45 AM EST) No Jaime Chilel documented as of this encounter Visit Diagnoses Not on filedocumented in this encounter Additional Health Concerns Assessment Noted Time PHQ-9 Depression Total Score: 0 10/23/19 24 2:23 PM EDT documented as of this encounter Care Teams Solar Resource Assessor Relationship Specialty Start Date End Date Genevieve Gtz MD [address] [place] [address] PCP - General Internal Medicine 10/12/22 documented as of this encounter
--- OUTSIDE RECORDS SUMMARY | 2025-02-01 21:33 | XMS_ITS | Encounter Summary ---
Author Organization [employer] Address [address] [facility] 7[address] [place] [address] Care Team Providers Care Finish Painter Name Role Phone Carolina Hsu POLE SHAVER HELPER Primary Care Provider Genevieve Wilson MD Primary Care Pro vider Reason for Visit * Reason Onset Date Comments Appointment Request 03/30/2022 Encounter Details Date Type Department Care Team ([facility] st Contact Info) Description 03/30/2022 Telephone [facility] MEDICINE [address] [place] [phone] Carolina Hsu FNP Appointment Request Social History [...] EST TC to pt, NCNS for todays VEST PRESSER Renewal appt. Pt stated she is currently admitted to [facility], she statedshe has fluid in her lungs and she's a mess. Wished patient well and told her I would forward this information to her PCP. Requested she call back to reschedule VEST PRESSER appt when she's feeling better. * Telephone Encounter - Stephen Davison - 03/30/2022 10:41 AM EST documented in this encounter Plan of Treatment Upcoming Encounters Date Type Department Care Team (Late st Contact Info) Description 02/05/2025 10:45 AM EST Office Visit [facility] MEDICINE [address] [place] [address] Sarah Peres MD [address] [place], [place] [phone] 02/11/2025 2:45 PM EST Clinical Support [facility] MED & PEDS [address] [place], [place] [phone] Paola Thurston, KIRIT [address] [place], [place] [phone] documented as of this encounter Visit Diagnoses Not on filedocumented in this encounter Care Teams Finish Painter Relationship Specialty Start Date End Date Carolina Hsu FNP PCP - General Family Medicine 01/16/22 10/11/22 Genevieve Gtz MD [address] [place] [id number] PCP - General Internal Medicine 10/12/22 documented as of this encounter
--- OUTSIDE RECORDS SUMMARY | 2025-02-01 21:33 | XMS_ITS | Encounter Summary ---
Author Organization [employer] Address [address] [place] [address] 7[address] [place] [address] Care Team Providers Care Loft Patternmaker Name Role Phone Genevieve Gtz MD Primary Care Pro vider Reason for Visit * Reason Onset Date Comments chartprep 01/27/2025 Encounter Details Date Type Department Care Team ([facility] Contact Info) Description 01/27/2025 Telephone [facility] MEDICINE [address] [place] [address] Genevieve Gtz MD [address] [place] [address] chartprep Social History Tobacco Use Types Packs/Day Years [...] encounter Miscellaneous Notes * Telephone Encounter - Shelly Carr [place] - 01/27/2025 10:03 AM EST ..Chart Prep Labs: not applicable Images: done Xr chest Vaccines due: Covid Due, Tdap Due, PCV20 Due, Flu Due, and HPV Referrals: Not Applicable Screenings: PAP Overdue care gaps: A1C, Glucose, Sbirt, SDOH, PHQ9, GAD7, Disability , Oral Health, and Hemo documented in this encounter Plan of Treatment Upcoming Encounters Date Type Department Care Team (Late st Contact Info) Description 02/05/2025 10:45 AM EST Office Visit [facility] MEDICINE [address] [place] [address] Sarah Peres MD [address] [place] [address] 02/11/2025 2:45 PM EST Clinical Support [facility] CHC MED & PEDS [address] [place] [address] Paola Thursotn, KIRIT [address] [place] [address] documented as of this encounter Goals Goal [...] documented as of this encounter Care Teams Loft Patternmaker Relationship Specialty Start Date End Date Genevieve Gtz MD [address] [place] [id number] PCP - General Internal Medicine 10/12/22 documented as of this encounter
--- OUTSIDE RECORDS SUMMARY | 2025-02-01 21:33 | XMS_ITS | Encounter Summary ---
Author Organization [facility] Address [address] [place] [phone] Phone Care Team Providers Care Induction Machine Operator Name Role Phone EmilyAlyssa hutchinson Primary Care Provider Unava ilable Encounter Details Date Type Department Care Team (Late st Contact Info) Description 11/22/2024 TCM in Dialysis Clinic [facility] [address] [phone] Placido Carver MD [address] [phone] Social History Tobacco Use [...] 11/22/2024 The patient was seen for a [id number] visit as part of Transitional Care Management services. Attending Construction Site Manager: PLACIDO CARVER MD [facility] [...] with the patient. VISIT DIAGNOSES CPT Code 56998 - High complexity, seen 8-14 days post discharge or moderate complexity, seen [id number] days of discharge. N18.6 End stage renal disease Signed by: PLACIDO CARVER MD on 11/22/2024 at 01:18:26 PM Transcribed by: PLACIDO CARVER MD on 11/22/2024 at 01:18:26 PM documented in this encounter Plan of Treatment Not on file documented as of this encounter Visit Diagnoses Not on filedocumented in this encounter Care Teams Induction Machine Operator Relationship Specialty Start Date End Date Alyssa Manzano DO [address] [place] [address] PCP - General Family Medicine 03/02/21 documented as of this encounter
--- OUTSIDE RECORDS SUMMARY | 2025-02-01 21:33 | XMS_ITS | Encounter Summary ---
Author Organization [employer] Address [address] [facility] 7t [place] [address] Care Team Providers Care Tallow Refiner Name Role Phone Genevieve Gtz MD Primary Care Pro vider Encounter Details Date Type Department Care Team ([facility] Contact Info) Description 01/21/2025 Orders Only [facility] External Provider, [facility] Social History Tobacco Use Types Packs/Day Years [...] Description 02/05/2025 10:45 AM EST Office Visit [facility] [address] [place], [place] [phone] Sarah Peres MD 230 [place], [place] [phone] 02/11/2025 2:45 PM EST Clinical Support [facility] 505 [place], [place] [phone] Paola Thurston RN 505 [place], [place] [phone] documented as of this encounter Goals Goal Patient Goal Type Associated Problems Recent Progress Patient-Stated? Author Blood Pressure < 140/90 Blood Pressure 129/75(2024 9:08 AM EST) No Jaime Chilel Hemoglobin A1c < 8 Result Component 5.7( 9:45 AM EST) No Jaime Chilel documented as of this encounter Procedures Procedure Name Priority Date/Time Associated Diagnosis Comments XR KUB AND UPRIGHT 2 VIEWS Routine 01/31/2025 2:21 PM EST documented in this encounter Results * XR KUB and Upright 2 Views (01/31/2025 2:21 PM EST) Anatomical Region Laterality Modality Radiographic Vandana ging 01/31/2025 2:21 PM EST Narrative 01/31/2025 2:22 PM EST [address] [address] XRay Report Signed Patient: Shereen Taylor MR#: [id number] : 1990 Acct:[id number] Age/Sex: 34 / F ADM Date: 01/21/25 Loc: HO.S3 383-[address]: Contreras Blanton MD Ordering Physician: Contreras Blanton MD Date of Service: 01/31/25 Procedure(s): XR KUB Accession Number(s): [id number] cc: Contreras Blanton MD; Genevieve Gtz MD Reason for Exam: Constipation CLINICAL HISTORY: Constipation 1 view abdomen Comparison: None Findings: Normal bowel gas pattern. A large bore vena cava catheter tip is located in the right atrium No abnormal calcifications. No obvious pneumoperitoneum or pneumatosis. No acute fractures Impression: Retained stool and radiopaque contrast is present throughout the colon and rectum. The bowel pattern is nonobstructed. This document has been electronically signed by: Fernando Fowler MD on 01/31/2025 14:21:26 Dictated By: Fernando Fowler MD Signed By: <Electronically signed by Fernando Fowler MD in OV> 01/31/25 1422 DD/ 1421 TD/TT: 01/31/25 1421 Die Out Worker: Procedure Note Donotuseinterpreter, Image - 01/31/2025 [place] [address] XRay Report Signed Patient: Danna Taylor#: [id number] : 1990Acct:[id number] Age/Sex: 34 / FADM Date: 01/21/25 Loc: HO.S3 383-[address]: Contreras Blanton MD Ordering Physician: Contreras Blanton MD Date of Service: 01/31/25 Procedure(s): XR KUB Accession Number(s): [id number] cc: Contreras Blanton MD; Genevieve Gtz MD Reason for Exam: Constipation CLINICAL HISTORY: Constipation 1 view abdomen Comparison: None Findings: Normal bowel gas pattern. A large bore vena cava catheter tip is located in the right atrium No abnormal calcifications. No obvious pneumoperitoneum or pneumatosis. No acute fractures Impression: Retained stool and radiopaque contrast is present throughout the colon and rectum. The bowel pattern is nonobstructed. This document has been electronically signed by: Fernando Fowler MD on 01/31/2025 14:21:26 Dictated By: Fernando Fowler MD Signed By: <Electronically signed by Fernando Fowler MD in OV> 01/31/25 1422 DD/ 1421 TD/TT: 01/31/25 1421 Die Out Worker: [facility] External Provider IMG XR PROCEDURES Edited Result - Final documented in this encounter Visit Diagnoses Not on filedocumented in this encounter Additional Health Concerns Assessment Noted Time PHQ-9 Depression Total Score: 0 10/23/19 24 2:23 PM EDT documented as of this encounter Care Teams Tallow Refiner Relationship Specialty Start Date End Date Genevieve Gtz MD [address] [place] [address] PCP - General Internal Medicine 10/12/22 documented as of this encounter
--- OUTSIDE RECORDS SUMMARY | 2025-02-01 21:33 | XMS_ITS | Encounter Summary ---
Author Organization [employer] Address [address] [facility] 7t [place] [address] Care Team Providers Care Pusher Runner Name Role Phone Genevieve Gtz MD Primary Care Pro vider Reason for Visit * Reason Onset Date Comments FYI 08/08/2024 Encounter Details Date Type Department Care Team ([facility] Contact Info) Description 08/08/2024 Telephone [facility] 230 [place], [place] [phone] Genevieve Gtz MD 230 [place], [place] [phone] FYI Social History Tobacco Use Types Packs/Day [...] - 08/08/2024 11:13 AM EDT Tc from [place] with [facility] reporting that patient was referred for [facility] services for wound care.Patient declined services, stating she manages her wound care independently and obtains her own supplies. Helen just wanted FYI to PCP documented in this encounter Plan of Treatment Upcoming Encounters Date Type Department Care Team (Late st Contact Info) Description 02/05/2025 10:45 AM EST Office Visit [facility] 230 [place] [address] Sarah Peres MD 230 [place] [address] 02/11/2025 2:45 PM EST Clinical Support [facility] 505 [place] [address] Paola Thurston, KIRIT 505 [place] [address] documented as of this encounter Goals Goal [...] documented as of this encounter Care Teams Pusher Runner Relationship Specialty Start Date End Date Genevieve Gtz MD [address] [place] [address] PCP - General Internal Medicine 10/12/22 documented as of this encounter
--- OUTSIDE RECORDS SUMMARY | 2025-02-01 21:33 | XMS_ITS | Encounter Summary ---
Author Organization [employer] Address 75 [facility] 7t [place] [address] Care Team Providers Care Bobbin Fixer Name Role Phone Genevieve Gtz MD Primary Care Pro vider Reason for Visit * Reason Onset Date Comments Med Refill 06/21/2023 Encounter Details Date Type Department Care Team ([facility] Contact Info) Description 06/21/2023 Telephone [facility] 230 [place], [place] [phone] Genevieve Gtz MD 230 [place], [place] [phone] Med Refill Social History Tobacco Use Types [...] tablet To be sent to: [facility]/pharmacy #[id number] [place] [address] - [address] [place] [address] documented in this encounter Plan of Treatment Upcoming Encounters Date Type Department Care Team (Late st Contact Info) Description 02/05/2025 10:45 AM EST Office Visit [facility] 230 [place] [address] Sarah Peres MD 230 [place] [address] 02/11/2025 2:45 PM EST Clinical Support [facility] 505 [place] [address] Paola Thurston RN 505 [place] [address] documented as of this encounter Goals Goal [...] documented as of this encounter Care Teams Bobbin Fixer Relationship Specialty Start Date End Date Genevieve Gtz MD [address] [place] [address] PCP - General Internal Medicine 10/12/22 documented as of this encounter
--- OUTSIDE RECORDS SUMMARY | 2025-02-01 21:33 | XMS_ITS | Encounter Summary ---
Author Organization [employer] Address [address] [facility] 7t [place] [address] Care Team Providers Care Hot Dog Vendor Name Role Phone Genevieve Gtz MD Primary Care Pro vider Reason for Visit * Reason Onset Date Comments Hospital Follow-up 03/04/2024 Encounter Details Date Type Department Care Team ([facility] Contact Info) Description 03/04/2024 Telephone [facility] 230 [place], [place] [phone] Genevieve Gtz MD 230 [place] [address] Hospital Follow-up Social History Tobacco Use Types [...] from pt requesting a HDF appt. Hospital: [facility] Date of admission: 02/21/2024 Discharge date: 02/01/2025 Diagnosed: Oxygen , Infection Dialysis tube *Send message to [facility] Care Coordinators documented in this encounter Plan of Treatment Upcoming Encounters Date Type Department Care Team (Late st Contact Info) Description 02/05/2025 10:45 AM EST Office Visit [facility] 230 [place] [address] Sarah Peres MD 230 [place] [address] 02/11/2025 2:45 PM EST Clinical Support [facility] 505 [place] [address] Paola Thurston, KIRIT 505 [place] [address] documented as of this encounter Goals Goal [...] documented as of this encounter Care Teams Hot Dog Vendor Relationship Specialty Start Date End Date Genevieve Gtz MD [address] [place] [address] PCP - General Internal Medicine 10/12/22 documented as of this encounter
--- OUTSIDE RECORDS SUMMARY | 2025-02-01 21:33 | XMS_ITS | Encounter Summary ---
Author Organization [employer] [facility] Address [address] [place] [address] 7t [place] [address] Care Team Providers Care Commercial Portfolio Manager Name Role Phone Carolina Hsu HAND SUTURE WINDER Primary Care Provider Genevieve [place] MD Primary Care Pro vider Encounter Details Date Type Department Care Team (Late Contact Info) Description 09/11/2022 Abstract [facility] 230 [place] [address] Carolina Hsu FNP Social History Tobacco Use [...] Department Care Team (Late Contact Info) Description 02/05/2025 10:45 AM EST Office Visit [facility] 230 [place] [address] Sarah Peres MD 230 [place] [address] 02/11/2025 2:45 PM EST Clinical Support [facility] 505 [place] [address] Paola Thurston, RN 505 [place] [address] documented as of this encounter Visit Diagnoses Not on filedocumented in this encounter Care Teams Commercial Portfolio Manager Relationship Specialty Start Date End Date Carolina Hsu FNP PCP - General Family Medicine 01/16/22 10/11/22 Genevieve Gtz MD [address] [place] [address] PCP - General Internal Medicine 10/12/22 documented as of this encounter
--- OUTSIDE RECORDS SUMMARY | 2025-02-01 21:33 | XMS_ITS | Encounter Summary ---
Author Organization [employer] [facility] Prior to 12/28/2023 Address [address] [place] [address] Care Team Providers Care Chemist Food Name Role Phone Richard Mathur MD Primary Care Provider Ed Brewer MD Primary Care Provider Un available [facility], Pcp Primary Care Provider Unavailabl e [facility], Pcp Primary Care Provider Unavailabl e Chanda Nugent Primary Care Provider Unavailabl e Encounter Details Date Type Department Care Team Description 11/05/2015 Release of Information Medical Records [address] [place] [id number] Abstract, Provider Social History Tobacco Use Types [...] on filedocumented in this encounter Care Teams Chemist Food Relationship Specialty Start Date End Date Richard Mathur MD PCP - General Internal Medicine 06/28/15 11/10/15 Ed Nash MD PCP - General Internal Medicine 11/11/15 Community, Pcp PCP - General Internal Medicine 07/27/16 08/21/17 Community, Pcp PCP - General Internal Medicine 08/22/17 01/09/18 Chanda Nugent PCP - General Internal Medicine 01/10/18 documented as of this encounter
--- OUTSIDE RECORDS SUMMARY | 2025-02-01 21:33 | XMS_ITS | Encounter Summary ---
Author Organization [employer] Address [address] [facility] 7t [place] [address] Care Team Providers Care Remotely Piloted Vehicle Controller Name Role Phone Genevieve Gtz MD Primary Care Pro vider Encounter Details Date Type Department Care Team (Late st Contact Info) Description 01/21/2024 Telephone [facility] 230 [place], [place] [phone] Genevieve Gtz MD 230 [place], [place] [phone] Social History Tobacco Use Types Packs/Day Years [...] Oxycodone 5mg , pt requests a callback [phone] documented in this encounter Plan of Treatment Upcoming Encounters Date Type Department Care Team (Late st Contact Info) Description 02/05/2025 10:45 AM EST Office Visit [facility] [address] [place] [address] Sarah Peres MD 230 [place] [address] 02/11/2025 2:45 PM EST Clinical Support [facility] 505 [place] [address] Paola Thurston RN 505 [place] [address] documented as of this encounter Goals Goal [...] documented as of this encounter Care Teams Remotely Piloted Vehicle Controller Relationship Specialty Start Date End Date Genevieve Gtz MD [address] [place] [address] PCP - General Internal Medicine 10/12/22 documented as of this encounter
--- OUTSIDE RECORDS SUMMARY | 2025-02-01 21:33 | XMS_ITS | Encounter Summary ---
Author Organization [employer] Address [address] [place] [address] 7t [place] [address] Care Team Providers Care Manager Biologics Name Role Phone Genevieve Gtz MD Primary Care Pro vider Reason for Visit * Reason Onset Date Comments Med Refill 11/27/2022 Encounter Details Date Type Department Care Team ([facility] st Contact Info) Description 11/27/2022 Telephone [facility] 230 [place], [place] [phone] Genevieve Gtz MD 230 [place], [place] [phone] Med Refill Social History Tobacco Use Types [...] oxycodone 5 mg. Please send to [facility]/pharmacy #[id number] - [place] - [address] Cool documented in this encounter Plan of Treatment Upcoming Encounters Date Type Department Care Team (Late st Contact Info) Description 02/05/2025 10:45 AM EST Office Visit [facility] [address] [place] [address] Sarah Peres MD 230 [place] [address] 02/11/2025 2:45 PM EST Clinical Support [facility] 505 [place], [place] [phone] Paola Thurston, KIRIT 505 [place], [place] [phone] documented as of this encounter Visit Diagnoses Not on filedocumented in this encounter Additional Health Concerns Assessment Noted Time PHQ-9 Depression Total Score: 0 10/13/19 2:37 PM EDT documented as of this encounter Care Teams Manager Biologics Relationship Specialty Start Date End Date Genevieve Gtz MD [address] [place] [address] PCP - General Internal Medicine 10/12/22 documented as of this encounter
--- OUTSIDE RECORDS SUMMARY | 2025-02-01 21:33 | XMS_ITS | Clinical Summary ---
Author Organization [employer] Address [address] [facility] [address] [place] [address] Care Team Providers Care Radio Artist Name Role Phone Genevieve Gtz MD Primary Care Pro vider Allergies Active Allergy Reactions Criticality Noted Date Comments Azithromycin Hives 05/10/2022 Gabapentin Angioedema,Swelling High 04/19/2022 Morphine Itching High 04/18/2019 Penicillins Hives,Rash,Other Medium 05/04/2021 Piperacillin-Tazobactam In Dex Angioedema High [...] hours if needed for mild pain. Active acetaminophen (Tylenol) 325 MG tabletIndicatio ns:Acute on chronic heart failure, unspecified heart failure type (HCC) TAKE 2 TABLETS BY MOUTH EVERY 4 HOURS IF NEEDED FOR MILD PAIN 120 tablet 2 02/28/19 25 025 Discontinued(M ed list cleanup (will not trigger notification to Pharmacy)) oxyCODONE (Roxicodone) 5 MG immediate release tabletIndicatio ns:Chronic ulcer of left foot due to diabetes mellitus (HCC) Take 1 tablet (5 mg) by mouth every 8 (eight) hours if needed for severe pain for up to 14 days. Do not start before December 30, 2024. 42 tablet 12/31/19 25 025 Discontinued(R eorder (will not trigger notification to Pharmacy)) oxyCODONE (Roxicodone) 5 MG immediate release tabletIndicatio ns:Chronic ulcer of left foot due to diabetes mellitus (HCC) Take 1 tablet (5 mg) by mouth every 8 (eight) hours if needed for severe pain for up to 14 days. Do not start before January 14, 2025. 42 tablet 01/15/20 25 025 Discontinued(M ed list cleanup (will not trigger [...] overload 09/04/2024 Opioid dependence 09/04/2024 Seizure disorder ([facility]/HCC) 09/04/2024 Long-term current use of opiate analgesic 2024 Neurogenic bladder 03/07/2024 Bacteremia due to Pseudomonas 01/03/2024 Infection due to 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 ([facility]) 10/23/2023 Seizure ([facility]) 10/23/2023 Opioid dependence with opioid-induced disorder ( [facility]) 10/23/2023 Blindness of both eyes 10/23/2023 Uncontrolled [...] retinopathy 11/24/2015 Overview (02/16/2022): Care managed by RONNIE Obesity 11/24/2015 Anxiety 11/03/2015 Resolved Problems Problem [...] organization. Date Type Department Care Team Description 01/28/2025 Telephone [facility] [address] [place] [address] Genevieve Gtz MD provider out 01/27/2025 Telephone [facility] [address] [place] [address] Genevieve Gtz MD chartprep 01/21/2025 Orders Only [facility] External Provider, [facility] 01/14/2025 Telephone [facility] [address] [place] [phone] Jackie Narvaez, buffing wheel raker Question; Durable Medical Equipment 01/11/2025 Orders Only GENERIC EXTERNAL DATA DEPARTMENT Provider, Generic External Data 01/09/2025 Patient Outreach [address] [address] Genevieve Gtz MD Transition Of Care (Tcm) (HDF scheduled) 01/09/[address] [address] Genevieve Gtz MD Hospital Follow-up 01/08/2025 Refill [facility] [address] [place] [address] Paola Thurston, oil analyst ulcer of left foot due to diabetes mellitus (HCC) 01/08/[address] [address] Genevieve Gtz MD Med Refill 12/31/2024 10:00 AM EST Telemedicine [facility] [address] [place] [address] Paola Thurston, KIRIT Long-term current use of opiate analgesic 12/31/2024 Travel 12/25/2024 Orders Only [facility] [address] [place] [address] Genevieve Gtz MD 12/25/2024 Refill [facility] [address] [place] [address] Paola Thurston, oil analyst ulcer of left foot due to diabetes mellitus (HCC) 12/25/2024 Telephone [facility] [address] [place] [address] Genevieve Gtz MD Med Refill 12/25/[address] [address] Genevieve Gtz MD Medication Question 12/25/2024 Orders Only [facility] [address] [place] [address] Genevieve Gtz MD 12/23/2024 Telephone [facility] [address] [place] [phone] Genevieve Gtz MD Durable Medical Equipment 12/22/2024 Orders Only GENERIC EXTERNAL DATA DEPARTMENT Provider, Generic External Data 12/21/2024 Orders Only GENERIC EXTERNAL DATA DEPARTMENT Provider, Generic External Data 12/19/2024 Orders Only GENERIC EXTERNAL DATA DEPARTMENT Provider, Generic External Data 12/15/2024 Refill [facility] [address] [place] [address] Paola Thurston, oil analyst ulcer of left foot due to diabetes mellitus ([facility]) 12/15/2024 Telephone [facility] [address] [place] [phone] Genevieve Gtz MD Med Refill 12/15/[address] [address] Genevieve Gtz MD Benign essential hypertension 12/10/2024 Orders Only [facility] External Provider, [facility] 12/09/2024 Orders Only GENERIC EXTERNAL DATA DEPARTMENT Provider, Generic External Data 12/04/2024 Refill [facility] [address] [place] [address] Paola Thurston, oil analyst ulcer of left foot due to diabetes mellitus ([facility]) 12/04/[address] [address] Genevieve Gtz MD Med Refill 12/01/2024 2:30 PM EDT Telemedicine [facility] [address] [place] [address] Paola Thurston, KIRIT Long-term current use of opiate analgesic 12/01/2024 Travel 11/25/[address] [address] Genevieve Gtz MD chart prep 11/21/2024 Orders Only [address] [address] Genevieve Gtz MD Chronic ulcer of left foot due to diabetes mellitus ([facility]/HCC) 11/21/2024 Refill [facility] [address] [place] [address] Paola Thurston RN Chronic ulcer of left foot due to diabetes mellitus ([facility]) 11/21/2024 Telephone [facility] [address] [place] [address] Genevieve Gtz MD Med Refill 11/20/2024 Telephone [facility] [address] [place] [address] Paola Thurston RN 11/19/2024 3:15 PM EDT Clinical Support [facility] [address] [place] [address] Paola Thurston RN Long-term current use of opiate analgesic (Primary Dx) 11/19/2024 Orders Only [facility] [address] [place] [phone] Genevieve Gtz MD 11/19/2024 Telephone [facility] [address] [place] [address] Paola Thurston RN 11/19/2024 Travel 11/11/[address] [address] Genveieve Gtz MD Medication Question 11/10/2024 Patient Outreach [facility] [address] [place] [address] Genevieve Gtz MD Pre-visit Planning (HDF scheduled. ) 11/10/2024 Telephone [facility] [address] [place] [phone] Genevieve Gtz MD telephone call 11/06/[address] [address] Genevieve Gtz MD FYI from Last 3 Months Immunizations Immunization Administration [...] Description 02/05/2025 10:45 AM EST Office Visit [facility] [address] [place] [address] Sarah Peres MD [address] [place] [address] 02/11/2025 2:45 PM EST Clinical Support [facility] [address] [place] [address] Paola Thurston, KIRIT [address] [place] [address] Health Maintenance Due Date Last Done Comments [...] 2 VIEWS Routine 01/31/2025 2:21 PM EST VENOUS BLOOD GAS Routine 01/11/2025 4:44 PM [...] Relevant to Health Maintenance Results * XR KUB and Upright 2 Views (01/31/2025 2:21 PM EST) Anatomical Region Laterality Modality Radiographic Vandana ging 01/31/2025 2:21 PM EST Narrative 01/31/2025 2:22 PM EST [address] [address] XRay Report Signed Patient: Shereen Taylor MR#: [id number] : 1990 Acct:[id number] Age/Sex: 34 / F ADM Date: 01/21/25 Loc: HO.S3 383-[address]: Contreras Blanton MD Ordering Physician: Contreras Blanton MD Date of Service: 01/31/25 Procedure(s): XR KUB Accession Number(s): [id number] cc: Contreras Blanton MD; Genevieve Gtz MD [...] OV> 01/31/25 1422 DD/ 1421 TD/TT: 01/31/25 142 Bread Slicer Machine: Procedure Note Donotuseinterpreter, Image - 01/31/[address] [address] XRay Report Signed Patient: Christian TaylorR#: [id number] : 1990Acct:[id number] Age/Sex: 34 / FADM Date: 01/21/25 Loc: HO.S3 383-[address]: Contreras Blanton MD Ordering Physician: Contreras lBanton MD Date of Service: 01/31/25 Procedure(s): XR KUB Accession Number(s): [id number] cc: Contreras Blanton MD; Genevieve Gtz MD [...] 01/31/25 1422 DD/ 1421 TD/TT: 01/31/25 1421 Bread Slicer Machine: [facility] External Provider IMG XR PROCEDURES Edited Result - Final * VENOUS BLOOD GAS (01/11/2025 4:44 PM EST) VBG pH 7.36 7.32 - 7.43 [facility] Comment:METER #: [id number] additional_comment: Cb edwardt VBG PCO2 42 mmHg [facility] Comment:METER #: [id number] additional_comment: Cb edwardt VBG PO2 55 mmHg [facility] Comment:METER #: [id number] additional_comment: Cb edwardt VBG Base Excess -0.9 mmol/L [facility] Comment:METER #: [id number] additional_comment: Cb edwardt VBG HCO3 24 22 - 26 mmol/L [facility] Comment:METER #: [id number] additional_comment: Cb edwardt O2 Sat, Uday TNP % [facility] 01/11/2025 4:44 PM EST 01/11/2025 4:50 PM EST us Generic External Data Provider LAB BLOOD ORDERAB LES Final Result Performing Organization Address [facility]/ZIP Co de Phone Number [facility] [address] [place] [phone] * Glucose, Whole Blood (01/11/2025 4:19 PM EST) Glucose, Whole Blood 81 60 - 115 mg/dL [facility] Comment:METER #: [id number] 01/11/2025 4:19 PM EST 01/11/2025 4:23 PM EST Generic External Data Provider LAB BLOOD ORDERAB LES Final Result Performing Organization Address [facility] de Phone Number [facility] [address] [place] [phone] * (ABNORMAL) Urinalysis, Complete, with Reflex to Culture (01/11/2025 3:44 PM EST) Color Urine Yellow [facility] Appearance Urine Clear [facility] PH 7.5 5.0 - 9.0 [facility] Glucose Urine UA 100(A) Negative mg/dL [facility] Urine Blood Negative Negative [facility] Specific [place] - Urine 1.015 1.005 - 1.025 [facility] Urine Protein 300 (3+)(A) Neg-Trace mg/dL [facility] Urine Ketones Negative Negative mg/dL [facility] Nitrite Urine Negative Negative [facility] Leukocyte Esterase Urine Trace(A) Negative [facility] RBC Urine 0-2 0 - 2 /HPF [facility] Urine WBC 11-20(A) 0 - 5 /HPF [facility] Urine Squamous Epithelial Cell 3-5 0 - 2 /HPF [facility] Urine Bacteria None Seen None Seen [facility] Hyaline Casts, Urine 0-2 0 - 2 /LPF [facility] 01/11/2025 3:44 PM EST 01/11/2025 3:46 PM EST Narrative [facility] - 01/11/2025 3:53 PM EST [id number], Catheterized us Generic External Data Provider LAB URINE ORDERAB LES Final Result Performing Organization Address City/State/[facility] Co de Phone Number [facility] [address] [place] [phone] * XR Chest 1 View (01/11/2025 2:24 PM EST) Only the most recent of2 resultswithin the time period is included. Anatomical Region Laterality Modality Chest Radiographic Vandana ging 01/11/2025 2:24 PM EST Narrative 01/11/2025 2:25 PM EST [address] [address] XRay Report Signed Patient: Shereen Taylor MR#: [id number] : 1990 Acct:[id number] Age/Sex: 34 / F ADM Date: 01/11/25 Loc: HO.ED Attending Dr: Ordering Physician: Larissa Hartman Date of Service: 01/11/25 Procedure(s): XR chest 1V Accession Number(s): [id number] cc: Genevieve Gtz MD; Larissa Hartman Reason [...] Beckford MD in OV> 01/11/25 1425 DD/ 142 TD/TT: 01/11/25 142 Bread Slicer Machine: Procedure Note Donotuseinterpreter, Image - 01/11/[address] [address] XRay Report Signed Patient: Danna Taylor#: [id number] : 1990Acct:[id number] Age/Sex: 34 / FADM Date: 01/11/25 Loc: HO.ED Attending Dr: Ordering Physician: Larissa Hartman Date of Service: 01/11/25 Procedure(s): XR chest 1V Accession Number(s): [id number] cc: Genevieve Gtz MD; Larissa Hartman Reason [...] in OV> 01/11/251424 DD/ 23 TD/TT: 01/11/251423 Bread Slicer Machine: us [facility] External Provider IMG XR PROCEDURES Final Result * Slide Review (01/11/2025 2:06 PM EST) Slide Review VERIFIED [facility] 01/11/2025 2:06 PM EST 01/11/2025 2:08 PM EST Generic External Data Provider LAB BLOOD ORDERAB LES Final Result [facility] [address] [place] [phone] * (ABNORMAL) High Sensitivity Troponin I (01/11/2025 2:06 PM EST) Only the most recent of2 resultswithin the time period is included. TROPONIN I HIGH SENSITIVITY 81.7(HH) <3.5 - 17.0 ng/L [facility] Comment:Critical value for t est(s):TROP Results called to and readback by: EZIO Person calling: [email or web address] Date:01/11/2025 Time:14:45The [place] high sensitivity Troponin-I results should beused in conjunction with other diagnostic information suchas ECG, clinical observations and information, and patientsymptoms to aid in the diagnosis of DC. 01/11/2025 2:06 PM EST 01/11/2025 2:08 PM EST us Generic External Data Provider LAB BLOOD ORDERAB LES Final Result [facility] [address] [place] [address] [phone] * SARS-CoV-2 RNA, Influenza A/B, and RSV RNA, Ql NAAT (01/11/2025 2:06 PM EST) Pathologist [facility] Influenza A PCR NEGATIVE Negative [facility] Influenza B PCR NEGATIVE Negative [facility] Resp Syncy Virus RNA Qual PCR NEGATIVE Negative [facility] SARS COV2 PCR NEGATIVE Negative [facility] Comment:All test results mus t [...] use by authorized laboratories.Testing performed on the [employer] GeneXpert utilizingreal-time RT-PCR.All SARS CoV2 and positive influenza A/B results arereported to [facility]. 01/11/2025 2:06 PM EST 01/11/2025 2:08 PM EST us Generic External Data Provider LAB MICROBIOLOGY - GENERAL ORDERABLES Final Result [facility] [address] [place] [address] [phone] * (ABNORMAL) CBC auto differential (01/11/2025 2:06 PM EST) Only the most recent of4 resultswithin the time period is included. White Blood Count 4.6(L) 4.8 - 10.8 X10*3/uL [facility] Red Blood Count 2.50(L) 4.20 - 5.50 X10*6/uL [facility] Hemoglobin 7.6(L) 12.0 - 16.0 g/dl [facility] Hematocrit 22.9(L) 37.0 - 47.0 % [facility] Mean Corpuscular Volume 91.6 80.0 - 98.0 fL [facility] Mean Corpuscular Hemoglobin 30.4 27.0 - 33.0 pg [facility] Mean Corpuscular HGB Conc 33.2 31.0 - 35.0 g/dl [facility] Red Cell Distribution Width 13.8 11.0 - 16.0 % [facility] Platelet Count 128(L) 160 - 400 X10*3/uL [facility] Mean Platelet Volume 11.2 9.4 - 12.3 fL [facility] Neutrophils Percent Auto 71.5 45 - 73 % [facility] Imm Gran Pct Auto 0.4 0.0 - 0.4 % [facility] Lymphocytes Percent Auto 10.7(L) 20 - 40 % [facility] Monocytes Percent Auto 13.5(H) 2 - 11 % [facility] Eosinophils Percent Auto 3.7 0 - 4 % [facility] Basophils Percent Auto 0.2 0 - 2 % [facility] NRBC Pct Auto 0.0 0.0 - 0.2 /100WBC [facility] Neutrophils Absolute Auto 3.3 2.0 - 8.3 x10*3/uL [facility] Imm Gran Abs Auto 0.02 0.00 - 0.03 X10*3/uL [facility] Lymphocytes Absolute Auto 0.5(L) 1.2 - 4.9 X10*3/uL [facility] Monocytes Absolute Auto 0.6 0.1 - 1.2 X10*3/uL [facility] Eosinophils Absolute Auto 0.2 0.0 - 0.4 X10*3/uL [facility] Basophils Absolute Auto 0.0 0.0 - 0.2 X10*3/uL [facility] NRBC Abs Auto 0.000 0.0 - 0.012 X10*3/uL [facility] 01/11/2025 2:06 PM EST 01/11/2025 2:08 PM EST us Generic External Data Provider LAB BLOOD ORDERAB LES Edited Result - Final Performing Organization Address City/[facility] de Phone Number [facility] [address] [place] [phone] * (ABNORMAL) Prothrombin Time-INR (01/11/2025 2:06 PM EST) Only the most recent of2 resultswithin the time period is included. Prothrombin Time 13.6(H) 11.2 - 13.5 SEC [facility] INTERNATIONAL NORM RATIO 1.1 0.9 - 1.1 [facility] Comment:INTERNATIONAL NORMAL IZED RATIO (INR) [...] ORDERAB LES Final Result Performing Organization Address City/State/[facility] de Phone Number [facility] [address] [place] [phone] * (ABNORMAL) Magnesium (01/11/2025 2:06 PM EST) Only the most recent of3 resultswithin the time period is included. Magnesium 2.8(H) 1.6 - 2.6 mg/dL [facility] 01/11/2025 2:06 PM EST 01/11/2025 2:08 PM EST Generic External Data Provider LAB BLOOD ORDERAB LES Final Result Performing Organization Address [facility] Phone Number [facility] [address] [place] [phone] * (ABNORMAL) Creatine Kinase, Total (01/11/2025 2:06 PM EST) Creatine Kinase Total 223(H) 26 - 140 U/L [facility] 01/11/2025 2:06 PM EST 01/11/2025 2:08 PM EST Generic External Data Provider LAB BLOOD ORDERAB LES Final Result Performing Organization Address [facility] de Phone Number [facility] [address] [place] [phone] * (ABNORMAL) Hepatic Function Panel (01/11/2025 2:06 PM EST) Only the most recent of2 resultswithin the time period is included. Bilirubin, Total 0.5 0.0 - 1.0 mg/dL [facility] Bilirubin, Direct 0.2 0.0 - 0.5 mg/dL [facility] Aspartate Amino Transferase 47(H) 5 - 31 U/L [facility] Comment:Slight Hemolysis.Int erpret result with caution. Alanine Aminotransferase <6 0 - 31 U/L [facility] Total Protein 7.6 6.5 - 8.0 g/dL [facility] Albumin Level 3.7 3.5 - 5.0 g/dL [facility] Alkaline Phosphatase 273(H) 39 - 117 U/L [facility] 01/11/2025 2:06 PM EST 01/11/2025 2:08 PM EST us Generic External Data Provider LAB BLOOD ORDERAB LES Final Result [facility] [address] [place] [address] [phone] * (ABNORMAL) Basic Metabolic Panel (01/11/2025 2:06 PM EST) Sodium 132(L) 135 - 145 mmol/L [facility] Potassium 6.5(HH) 3.3 - 5.1 mmol/L [facility] Comment:Slight Hemolysis.Int erpret result with caution.Critical value for test(s):K Results called to and readback by: EZIO Person calling:[employer] CoVDate:01/11/2025 Time:14:45 Chloride 94(L) 96 - 108 mmol/L [facility] Carbon Dioxide 18(L) 22 - 29 mmol/L [facility] Anion Gap 27(H) 12 - 20 [facility] Urea Nitrogen (BUN) 82(H) 9 - 16 mg/dL [facility] Creatinine, Serum 13.22(HH) 0.5 - 1.4 mg/dL [facility] Comment:Critical value for t est(s): CREAT Results called to andread back by:EZIO Person calling:[employer] Date:01/11/2025 Time:14:45 Creatinine Clr Calc Pharmacy 6.2 [facility] Comment:Provided height and weight: 167.64 cm,80 kg.eGFR (calculated from the MDRD study equation) and eCrCl(calculated from the Cockcroft-Gault equation) are based ondifferent parameters and may not yield comparable results.If eCrCl result is absurd, please check patient'sheight/weight. Estimated Glomerular Filt Rate 3 [facility] Comment:Chronic Kidney Disea se: Estimated GFR < 60 mL/min/1.07s3Eleiek Kidney Disease: Estimated GFR < 15 mL/min/1.73m2 Glucose 87 60 - 115 mg/dL [facility] Calcium 8.7 8.4 - 10.2 mg/dL [facility] 01/11/2025 2:06 PM EST 01/11/2025 2:08 PM EST us Generic External Data Provider LAB BLOOD ORDERAB LES Final Result Performing Organization Address City/State/[facility] Co de Phone Number [facility] [address] [place] [phone] * CT Cervical Spine w/o Contrast (12/22/2024 10:37 AM EDT) Anatomical Region Laterality Modality Spine, C-spine Computed Tomogra phy 12/22/2024 10:3 7 AM EDT Narrative 12/22/2024 11:17 AM EDT [place] [address] CT Scan Report Signed Patient: Shereen Taylor MR#: [id number] : 1990 Acct:[id number] Age/Sex: 34 / F ADM Date: 12/22/24 Loc: .ED Attending Dr: Ordering Physician: Urszula Garcia Date of Service: 12/22/24 Procedure(s): CT cervical spine wo IV con Accession Number(s): [id number] cc: Genevieve Gtz MD; Urszula Garcia Report Number: [id number]: Total DLP = 508.00 mGy-cm Reason for [...] 12/22/24 1113 DD/ 1037 TD/TT: 12/22/24 1051 Bread Slicer Machine: Procedure Note Donotuseinterpreter, Image - 12/22/[address] [place] [address] [address] Scan Report Signed Patient: Danna Taylor#: [id number] : 1990Acct:[id number] Age/Sex: 34 / FADM Date: 12/22/24 Loc: .ED Attending Dr: Ordering Physician: Urszula Garcia Date of Service: 12/22/24 Procedure(s): CT cervical spine wo IV con Accession Number(s): [id number] cc: Genevieve Gtz MD; Urszula Garcia Report Number: [id number]: Total DLP = 508.00 mGy-cm Reason for [...] 12/22/24 1113 DD/ 1037 TD/TT: 12/22/24 1051 Bread Slicer Machine: [facility] External Provider IMG CT PROCEDURES Edited Result - Final * CT Head w/o Contrast (12/22/2024 10:37 AM EDT) Only the most recent of2 resultswithin the time period is included. Anatomical Region Laterality Modality Head, Neck Computed Tomogra phy 12/22/2024 10:3 7 AM EDT Narrative 12/22/2024 11:08 AM EDT [place] [address] CT Scan Report Signed Patient: Shereen Taylor MR#: [id number] : 1990 Acct:[id number] Age/Sex: 34 / F ADM Date: 12/22/24 Loc: HO.ED Attending Dr: Ordering Physician: Urszula Garcia Date of Service: 12/22/24 Procedure(s): CT head/brain wo IV con Accession Number(s): [id number] cc: Genevieve Gtz MD; Urszula Garcia Report Number: [id number]: Total DLP = 706.00 mGy-cm Reason for [...] 12/22/24 1105 DD/ 1037 TD/TT: 12/22/24 1051 Bread Slicer Machine: Procedure Note Donotuseinterpreter, Image - 12/22/[address] [place] [address] [address] Scan Report Signed Patient: Danna Taylor#: [id number] : 1990Acct:[id number] Age/Sex: 34 / FADM Date: 12/22/24 Loc: HO.ED Attending Dr: Ordering Physician: Urszula Garcia Date of Service: 12/22/24 Procedure(s): CT head/brain wo IV con Accession Number(s): [id number] cc: Genevieve Gtz MD; Urszula Garcia Report Number: [id number]: Total DLP = 706.00 mGy-cm Reason for [...] 12/22/24 1105 DD/ 1037 TD/TT: 12/22/24 1051 Bread Slicer Machine: [facility] External Provider IMG CT PROCEDURES Edited Result - Final * XR Foot 3+ Views Left (12/22/2024 9:35 AM EDT) Anatomical Region Laterality Modality Lower Extremities, Foot Left Radiogra phic Imaging 12/22/2024 9:35 AM EDT Narrative 12/22/2024 10:00 AM EDT [address] [address] XRay Report Signed Patient: Shereen Taylor MR#: [id number] : 1990 Acct:[id number] Age/Sex: 34 / F ADM Date: 12/22/24 Loc: HO.ED Attending Dr: Ordering Physician: Urszula Garcia Date of Service: 12/22/24 Procedure(s): XR foot LT min 3V Accession Number(s): [id number] cc: Genevieve Gtz MD; Urszula Garcia Reason [...] Cloud MD in OV> 12/22/2457 DD/ TD/TT: 12/22/24939 Bread Slicer Machine: C[facility]STI Procedure Note Donotuseinterpreter, Image - 12/22/[address] [address] XRay Report Signed Patient: Danna Taylor#: [id number] : 1990Acct:[id number] Age/Sex: 34 / FADM Date: 12/22/24 Loc: HO.ED Attending Dr: Ordering Physician: Urszula Garcia Date of Service: 12/22/24 Procedure(s): XR foot LT min 3V Accession Number(s): [id number] cc: Genevieve Gtz MD; Urszula Garcia Reason [...] Cloud MD in OV> 12/22/2457 DD/ TD/TT: 12/22/24939 Bread Slicer Machine: CRISTI [facility] External Provider IMG XR PROCEDURES Edited Result - Final * Hold Red (12/22/2024 9:22 AM EDT) Hold Red See Note [facility] Comment:Specimen held untest ed for 24 hours; Call to requestChemistry testing. 12/22/2024 9:22 AM EDT 12/22/2024 9:49 AM EDT us Generic External Data Provider LAB BLOOD ORDERAB LES Final Result Performing Organization Address City/State/[facility] Co de Phone Number [facility] [address] [place] [phone] * CT Chest w/o Contrast (12/21/2024 3:02 PM EDT) Anatomical Region Laterality Modality Body, Chest Computed Tomogra phy 12/21/2024 3:02 PM EDT Narrative 12/21/2024 3:04 PM EDT [address] [address] [address] Scan Report Signed Patient: Shereen Taylor MR#: [id number] : 1990 Acct:[id number] Age/Sex: 34 / F ADM Date: 12/21/24 Loc: HO.ED Attending Dr: Ordering Physician: Bonilla Villareal MD Date of Service: 12/21/24 Procedure(s): CT chest wo IV con Accession Number(s): [id number] cc: Bonilla Villareal MD; Genevieve Gtz MD Report Number: [id number]: Total DLP = 0.00 mGy-cm Reason for [...] OV> 12/21/24 1503 DD/ 1502 TD/TT: 12/21/24 150 Bread Slicer Machine: Procedure Note Donotsenaitinterpreter, Image - 12/21/[address] [address] [address] Scan Report Signed Patient: Danna Taylor#: [id number] : 1990Acct:[id number] Age/Sex: 34 / FADM Date: 12/21/24 Loc: HO.ED Attending Dr: Ordering Physician: Bonilla Villareal MD Date of Service: 12/21/24 Procedure(s): CT chest wo IV con Accession Number(s): [id number] cc: Bonilla Villareal MD; Genevieve Gtz MD Report Number: [id number]: Total DLP = 0.00 mGy-cm Reason for [...] OV> 12/21/24 1503 DD/ 1502 TD/TT: 12/21/24 150 Bread Slicer Machine: [facility] External Provider IMG CT PROCEDURES Edited Result - Final * CT Abdomen Pelvis w/o Contrast (12/21/2024 3:02 PM EDT) Anatomical Region Laterality Modality Body, Pelvis, Abdomen Computed T omography 12/21/2024 3:02 PM EDT Narrative 12/21/2024 3:04 PM EDT [address] [address] [address] Scan Report Signed Patient: Shereen Taylor MR#: [id number] : 1990 Acct:[id number] Age/Sex: 34 / F ADM Date: 12/21/24 Loc: HO.ED Attending Dr: Ordering Physician: Bonilla Villareal MD Date of Service: 12/21/24 Procedure(s): CT abdomen pelvis wo IV con Accession Number(s): [id number] cc: Bonilla Villareal MD; Genevieve Gtz MD Report Number: [id number]: Total DLP = 2186.00 mGy-cm Reason for [...] This document has been electronically signed by: Maqruita Pimentel MD on 12/21/2024 15:02:30 Dictated By: Marquita Pimentel MD Signed By: <Electronically signed by Marquita Pimentel MD in OV> 12/21/24 1503 DD/ 1502 TD/TT: 12/21/24 1502 Bread Slicer Machine: Procedure Note Donotuseinterpreter, Image - 12/21/[address] [address] [address] Scan Report Signed Patient: Christian TaylorR#: [id number] : 1990Acct:[id number] Age/Sex: 34 / FADM Date: 12/21/24 Loc: HO.ED Attending Dr: Ordering Physician: Bonilla Villareal MD Date of Service: 12/21/24 Procedure(s): CT abdomen pelvis wo IV con Accession Number(s): [id number] cc: Bonilla Villareal MD; Genevieve Gtz MD Report Number: [id number]: Total DLP = 2186.00 mGy-cm Reason for [...] 12/21/24 1503 DD/ 1502 TD/TT: 12/21/24 1502 Bread Slicer Machine: us [facility] External Provider IMG CT PROCEDURES Edited Result - Final * TSH (12/21/2024 12:49 PM EDT) Thyroid Stimulating Hormone 1.18 0.32 - 4.0 uIU/mL [facility] Comment:TSH 3rd Generation ( [facility]) 12/21/2024 12:4 9 PM EDT 12/21/2024 12:51 PM EDT Generic External Data Provider LAB BLOOD ORDERAB LES Final Result [facility] [address] [place] [phone] [phone] * (ABNORMAL) Comprehensive Metabolic Panel (12/21/2024 12:49 PM EDT) Only the most recent of3 resultswithin the time period is included. Sodium 137 135 - 145 mmol/L [facility] Potassium 6.2(HH) 3.3 - 5.1 mmol/L [facility] Comment:Critical value for t est(s): K Results called to and readback by: BRANDT Person calling: KUSFDate: 62-65-43Bali:KUSF Chloride 102 96 - 108 mmol/L [facility] Carbon Dioxide 19(L) 22 - 29 mmol/L [facility] Anion Gap 22(H) 12 - 20 [facility] Urea Nitrogen (BUN) 85(H) 9 - 16 mg/dL [facility] Creatinine, Serum 11.49(HH) 0.5 - 1.4 mg/dL [facility] Comment:Critical value for t est(s): MARIE Results called to andread back by: KIRT Person calling: BaxanoSF Date:12-21-24 Time:1527 Creatinine Clr Calc Pharmacy 7.7 [facility] Comment:Provided height and weight: 165.1 cm,97.1 kg.eGFR (calculated from the MDRD study equation) and eCrCl(calculated from the Cockcroft-Gault equation) are based ondifferent parameters and may not yield comparable results.If eCrCl result is absurd, please check patient'sheight/weight. Estimated Glomerular Filt Rate 4 [facility] Comment:Chronic Kidney Disea se: Estimated GFR < 60 mL/min/1.98b7Fyxxiw Kidney Disease: Estimated GFR < 15 mL/min/1.73m2 Glucose 76 60 - 115 mg/dL [facility] Calcium 8.1(L) 8.4 - 10.2 mg/dL [facility] Bilirubin, Total 0.8 0.0 - 1.0 mg/dL [facility] Aspartate Amino Transferase 30 5 - 31 U/L [facility] Alanine Aminotransferase 17 0 - 31 U/L [facility] Total Protein 7.6 6.5 - 8.0 g/dL [facility] Albumin Level 4.0 3.5 - 5.0 g/dL [facility] Alkaline Phosphatase 146(H) 39 - 117 U/L [facility] 12/21/2024 12:4 9 PM EDT 12/21/2024 12:51 PM EDT Generic External Data Provider LAB BLOOD ORDERAB LES Final Result Performing Organization Address [facility] Co de Phone Number [facility] [address] [place] [address] [phone] * Hold Green Gel (12/19/2024 1:42 PM EDT) Hold Green Gel See Note [facility] Comment:Specimen held untest ed for 24 hours; Call to requestChemistry testing. 12/19/2024 1:42 PM EDT 12/19/2024 1:49 PM EDT Generic External Data Provider HISTORICAL/NON OR DERABLE LABS Final Result Performing Organization Address [facility] Co de Phone Number [facility] [address] [place] [phone] * Blood Culture (Second) (12/19/2024 1:42 PM EDT) Blood Venous blood specimen / Unknown 12/19/2024 1:42 PM EDT 12/19/2024 1:47 PM EDT Comment:Blood Narrative [facility] - 12/24/2024 3:47 PM EDT Blood Culture (Second) No growth after 5 days. Specimen Source: Blood Generic External Data Provider LAB MICROBIOLOGY - GENERAL ORDERABLES Final Result Performing Organization Address [facility] Co de Phone Number [facility] [address] [place] [phone] * Blood Culture (First) (12/19/2024 1:33 PM EDT) Blood Venous blood specimen / Unknown 12/19/2024 1:33 PM EDT 12/19/2024 1:36 PM EDT Comment:Blood Narrative [facility] - 12/24/2024 3:36 PM EDT Blood Culture (First) No growth after 5 days. Specimen Source: Blood Generic External Data Provider LAB MICROBIOLOGY - GENERAL ORDERABLES Final Result Performing Organization Address [facility] Co de Phone Number [facility] [address] [place] [phone] * Partial Thromboplastin Time, Activated (APTT) (12/19/2024 1:33 PM EDT) Partial Thromboplastin Time 34.0 26.7 - 34.1 SEC [facility] 12/19/2024 1:33 PM EDT 12/19/2024 1:36 PM EDT Generic External Data Provider LAB BLOOD ORDERAB LES Final Result Performing Organization Address [facility] de Phone Number [facility] [address] [place] [phone] * (ABNORMAL) Sed Rate by Modified Axelren (12/19/2024 1:33 PM EDT) Only the most recent of2 resultswithin the time period is included. Erythrocyte Sedimentation Rate 54(H) 0 - 20 MM/HR [facility] Comment:Patients with polycy themia and many hemoglobin abnormalitiesmay have depressed sed rates whereas patients with anemiamay have elevated sed rates. 12/19/2024 1:33 PM EDT 12/19/2024 1:36 PM EDT Generic External Data Provider LAB BLOOD ORDERAB LES Final Result Performing Organization Address [facility] Co de Phone Number [facility] [address] [place] [address] [phone] * (ABNORMAL) C-reactive Protein (12/19/2024 1:33 PM EDT) C Reactive Protein 0.84(H) < or = 0.50 mg/dL [facility] 12/19/2024 1:33 PM EDT 12/19/2024 1:36 PM EDT Generic External Data Provider LAB BLOOD ORDERAB LES Final Result Performing Organization Address [facility] Co de Phone Number [facility] [address] [place] [phone] * Lipase (12/19/2024 1:33 PM EDT) Only the most recent of2 resultswithin the time period is included. Lipase 37 8 - 78 U/L [facility] 12/19/2024 1:33 PM EDT 12/19/2024 1:36 PM EDT Generic External Data Provider LAB BLOOD ORDERAB LES Final Result Performing Organization Address [facility] Co de Phone Number [facility] [address] [place] [phone] * Lactic Acid (12/19/2024 1:33 PM EDT) Only the most recent of2 resultswithin the time period is included. Lactic Acid 1.9 0.5 - 2.0 mmol/L [facility] 12/19/2024 1:33 PM EDT 12/19/2024 1:36 PM EDT Generic External Data Provider LAB BLOOD ORDERAB LES Final Result Performing Organization Address [facility] Co de Phone Number [facility] [address] [place] [phone] * MR Foot w and w/o Contrast Left (12/11/2024 12:21 PM EDT) Anatomical Region Laterality Modality Lower Extremities, Foot Left Magnetic Resonance 12/11/2024 12:2 1 PM EDT Narrative 12/11/2024 2:14 PM EDT [address] [address] Magnetic Resonance Report Signed Patient: Shereen Taylor MR#: [id number] : 1990 Acct:[id number] Age/Sex: 34 / F ADM Date: 12/10/24 Loc: .S3 361-[address]: Ellen Frankel MD Ordering Physician: Lele Allan MD Date of Service: 12/11/24 Procedure(s): MR foot LT wo/w con Accession Number(s): [id number] cc: Lele Allan MD; Genevieve Gtz MD [...] 12/11/24 1411 DD/ 1221 TD/TT: 12/11/24 1310 Bread Slicer Machine: Procedure Note Donotuseinterpreter, Image - 12/11/2024 [place] [address] Magnetic Resonance Report Signed Patient: Danna Taylor#: [id number] : 1990Acct:[id number] Age/Sex: 34 / FADM Date: 12/10/24 Loc: .S3 361-[address]: Ellen Frankel MD Ordering Physician: Lele Allan MD Date of Service: 12/11/24 Procedure(s): MR foot LT wo/w con Accession Number(s): [id number] cc: Lele Allan MD; Genevieve Gtz MD [...] 12/11/24 1411 DD/ 1221 TD/TT: 12/11/24 1310 Bread Slicer Machine: CRISTI [facility] External Provider IMG MRI PROCEDURES Final Result * XR Foot 1-2 Views Left (12/09/2024 8:38 PM EDT) Anatomical Region Laterality Modality Lower Extremities, Foot Left Radiogra phic Imaging 12/09/2024 8:38 PM EDT Narrative 12/09/2024 8:42 PM EDT [address] [address] XRay Report Signed Patient: Shereen Taylor MR#: [id number] : 1990 Acct:[id number] Age/Sex: 34 / F ADM Date: 12/09/24 Loc: HO.ED Attending Dr: Ordering Physician: Generic ED Physician Date of Service: 12/09/24 Procedure(s): XR foot LT 2V Accession Number(s): [id number] cc: Generic ED Physician; Genevieve Gtz MD [...] in OV> 12/09/242039 DD/ 37 TD/TT: 12/09/242037 Bread Slicer Machine: Procedure Note Donotuseinterpreter, Image - 12/09/[address] [address] XRay Report Signed Patient: Danna Taylor#: [id number] : 1990Acct:[id number] Age/Sex: 34 / FADM Date: 12/09/24 Loc: HO.ED Attending Dr: Ordering Physician: Generic ED Physician Date of Service: 12/09/24 Procedure(s): XR foot LT 2V Accession Number(s): [id number] cc: Generic ED Physician; Genevieve Gtz MD [...] in OV> 12/09/242039 DD/ 37 TD/TT: 12/09/242037 Bread Slicer Machine: [facility] External Provider IMG XR PROCEDURES Final Result * Drug Toxicology Monitoring Base Panel, w/Confirmation, Oral Fluid (11/19/2024 12:00 AM EDT) Drug Tox Panel with Confirmation SEE NOTE [facility] Comment: Test Ordered Result Cutoff [...] Negative 5.0 ng/mLFor additional information, please refer tohttp://education.AllClear ID/faq/[email or web address] (This linkis being provided for informational/ educational purposesonly.) This drug testing is for medical treatment only.Analysis was performed as non-forensic testing and theseresults should be used only by healthcare providers torender diagnosis or treatment, or to monitor progress ofmedical conditions. For assistance with interpreting thesedrug results, please contact a [employer] ToxicologySpecialist: [phone] ( ), M-F, 8am-6pmEST. These tests were developed and their analyticalperformance characteristics have beendetermined by [employer]. They have not been clearedor a pproved by the FDA. These assays have been validatedpursuant to the CLIA regulations and are used for clinicalpurposes. PERFO RMING SITE:[place]/[facility], [address] [place] [phone] Curtain Cleaner: KORIN TRUONG MD,PHD, CLIA: [id number] 11/19/2024 11/19/2024 Genevieve Casillas MD LAB BODY FLUIDS A ND STOOLS ORDERABLES Final Result Performing Organization Address [facility]/ZIP Co de Phone Number [facility] [address] [place] [phone] * Hepatitis C Antibody with Reflex to HCV, RNA, Quantitative, Real-Time PCR (03/07/2024 9:45 AM EST) Hepatitis C Antibody Nonreactive Nonreactive [facility] Comment:Antibodies to HCV no t detected; does not exclude early acuteHCV infection. Blood Venous blood specimen / Unknown 03/07/2024 9:45 AM EST 03/07/2024 11:34 AM EST Genevieve Casillas MD LAB BLOOD ORDERAB LES Final Result Performing Organization Address [facility] Co de Phone Number [facility] [address] [place] [phone] * HIV-1/2 Antigen and Antibodies, Fourth Generation, with Reflexes (03/07/2024 9:45 AM EST) HIV AB/AG Nonreactive Nonreactive [facility] Comment:HIV-1 p24 Ag and/or HIV-1/HIV-2 Ab not detected.A test result that is nonreactive does not exclude thepossibility of exposure to or infection with HIV-1 and/orHIV-2. Nonreactive results in this assay for individualswith prior exposure to HIV-1 and/or HIV-2 may be due toantigen and antibody levels that are below the limit ofdetection of this assay.[employer] HIV Ag/Ab Combo assay result andsupplemental assay results should be interpreted inconjunction with the patient's clinical presentation,history and other laboratory results. If the results areinconsistent with clinical evidence, additional testing issuggested to confirm the result. Blood Venous blood specimen / Unknown 03/07/2024 9:45 AM EST 03/07/2024 11:34 AM EST us Genevieve Casillas MD LAB BLOOD ORDERAB LES Final Result Performing Organization Address [facility] Co de Phone Number [facility] [address] [place] [phone] * Hemoglobin A1c (03/07/2024 9:45 AM EST) Hemoglobin A1c 5.7 <6.0 % [facility] Comment:Hemoglobin A1C Refer ence Range Adults: 4.8 - 6.0 % Non diabetic: < 6.0 % Goal: < 7.0 %Additional Action Suggested: > 8.0 %Note: Hemoglobin A1c results are invalid for patients with abnormal amounts of HbF. Blood transfusions may impact the HbA1c concentration in the patient sample. Estimated Average Glucose 117 mg/dL [facility] Comment:eAG = Estimated ave rage glucose which is %A1C expressed asaverage glucose, using the formula of the C7M-XujimmwJfkoewb Glucose study (ADAG), Diabetes Care, Vol.31,#8,2007 Blood Venous blood specimen / Unknown 03/07/2024 9:45 AM EST 03/07/2024 11:34 AM EST us Genevieve Casillas MD LAB BLOOD ORDERAB LES Final Result Performing Organization Address [facility] Co de Phone Number [facility] [address] [place] [phone] * (ABNORMAL) Lipid Panel, Standard (03/07/2024 9:45 AM EST) Triglycerides 36 <150 mg/dL [facility] Comment:Desirable Triglyceri de: less than 150 mg/dLBorderline High Triglyceride 150-199 mg/dLHigh Triglyceride: 200-499 mg/dLVery High Triglyceride: greater than or equal to 5OO mg/dL Cholesterol 107 <200 mg/dL [facility] Comment:Desirable Cholestero l: less than 200 mg/dLBorderline High Cholesterol: 200-239 mg/dLHigh Cholesterol: greater than 239 mg/dL LDL Cholesterol Calculated 65 <100 mg/dL [facility] Comment:Desirable LDL: less than 100 mg/dLNear Optimal/Above Optimal LDL: 110- 129 mg/dLBorderline High LDL: 130-159 mg/dLHigh LDL: 160-189 mg/dLVery High LDL: greater than or equal to 190 mg/dL HDL Cholesterol 35(L) >40 mg/dL [facility] Comment:Desirable HDL: great er than 40 mg/dL Note: This HDL assay may give artificially low results in patients with liver disease. Blood Venous blood specimen / Unknown 03/07/2024 9:45 AM EST 03/07/2024 11:34 AM EST Genevieve Casillas MD LAB BLOOD ORDERAB LES Final Result Performing Organization Address City/State/[facility] Co de Phone Number [facility] [address] [place] [phone] from Last 3 Months or Most Recently Relevant to Health Maintenance Insurance [employer] < 65 [place] [id number] Care Teams Radio Artist Relationship Specialty Start Date End Date Genevieve Gtz MD [address] [place] [phone] PCP - General Internal Medicine 10/12/22
--- OUTSIDE RECORDS SUMMARY | 2025-02-01 21:33 | XMS_ITS | Encounter Summary ---
Author Organization [employer] Address [address] [facility] [address] [place] [address] Care Team Providers Care Market Maker Name Role Phone Genevieve Gtz MD Primary Care Pro vider Reason for Visit * Reason Comments Med Change Request Encounter Details Date Type Department Care Team ([facility] st Contact Info) Description 03/15/2023 Refill [facility] [address] [place], [place] [phone] Genevieve Gtz MD [address] [place], [place] [phone] Benign essential hypertension Social History Tobacco Use [...] Description 02/05/2025 10:45 AM EST Office Visit [facility] [address] [place] [address] Sarah Peres MD [address] [place] [address] 02/11/2025 2:45 PM EST Clinical Support [facility] [address] [place], [place] [phone] Paola Thurston, KIRIT [address] [place] [address] documented as of this encounter Visit Diagnoses Diagnosis Benign essential hypertension Essential hypertension, benign documented in this encounter Additional Health Concerns Assessment Noted Time PHQ-9 Depression Total Score: 0 10/13/19 23 2:37 PM EDT documented as of this encounter Care Teams Market Maker Relationship Specialty Start Date End Date Genevieve Gtz MD [address] [place] [phone] PCP - General Internal Medicine 10/12/22 documented as of this encounter
--- OUTSIDE RECORDS SUMMARY | 2025-02-01 21:33 | XMS_ITS | Encounter Summary ---
Author Organization [employer] Address [address] [facility] [address] [place] [address] Care Team Providers Care Auto Rebuilder Name Role Phone Genevieve Gtz MD Primary Care Pro vider Reason for Visit * Reason Onset Date Comments Med Refill 11/21/2024 Encounter Details Date Type Department Care Team ([facility] Contact Info) Description 11/21/2024 Telephone [facility]INE [address] [place] [address] Genevieve Gtz MD [address] [place], [place] [phone] Med Refill Social History Tobacco Use Types [...] To be sent to: - [id number] documented in this encounter Plan of Treatment Upcoming Encounters Date Type Department Care Team (Late st Contact Info) Description 02/05/2025 10:45 AM EST Office Visit [facility] [address] [place] [address] Sarah Peres MD [address] [place] [address] 02/11/2025 2:45 PM EST Clinical Support [facility] [address] [place] [address] Paola Thurston, KIRIT [address] [place] [address] documented as of this encounter Goals Goal [...] documented as of this encounter Care Teams Auto Rebuilder Relationship Specialty Start Date End Date Genevieve Gtz MD [address] [place] [phone] PCP - General Internal Medicine 10/12/22 documented as of this encounter
--- OUTSIDE RECORDS SUMMARY | 2025-02-01 21:33 | XMS_ITS | Encounter Summary ---
Author Organization [facility] Address [address] [place] [address] 7t [place] [address] Care Team Providers Care Life Teacher Name Role Phone Carolina Hsu SECURITY PATROL DRIVER Primary Care Provider Genevieve Wilson MD Primary Care Pro vider Encounter Details Date Type Department Care Team (Late Contact Info) Description 09/11/2022 Abstract [facility] MEDICINE 230 [place] [address] Carolina Hsu FNP Social History Tobacco Use [...] Description 02/05/2025 10:45 AM EST Office Visit [facility] 230 [place] [address] Sarah Peres MD 230 [place] [address] 02/11/2025 2:45 PM EST Clinical Support [facility] 505 [place] [address] Paola Thurston, RN 505 [place] [address] documented as of this encounter Visit Diagnoses Not on filedocumented in this encounter Care Teams Life Teacher Relationship Specialty Start Date End Date Carolina Hsu FNP PCP - General Family Medicine 01/16/22 10/11/22 Genevieve Gtz MD [address] [place] [address] PCP - General Internal Medicine 10/12/22 documented as of this encounter
--- OUTSIDE RECORDS SUMMARY | 2025-02-01 21:33 | XMS_ITS | Encounter Summary ---
Author Organization [employer] Address [address] [facility] 7t [place] [address] Care Team Providers Care Liquefaction Plant Operator Name Role Phone Genevieve Gtz MD Primary Care Pro vider Reason for Visit * Reason Onset Date Comments provider out 01/28/2025 Encounter Details Date Type Department Care Team ([facility] Contact Info) Description 01/28/2025 Telephone [facility] MEDICINE 230 [place], [place] [phone] Genevieve Gtz MD 230 [place], [place] [phone] provider out Social History Tobacco Use Types Packs/Day Years [...] encounter Miscellaneous Notes * Telephone Encounter - Monica Saha MA - 01/28/2025 9:16 AM EST T/C- Left Voice Mail Informing Patient provider will not be in office and appointment needs to be rescheduled. Adult Live In Caregiver rescheduled appointment to 02/05/25 at 10:45 AM. Patient was asked to call back if they can't make it to the new appointment date. Adult Live In Caregiver doesn't want the appointment slot to be taken. If Patient can't make appointment they will be placed on recall. documented in this encounter Plan of Treatment Upcoming Encounters Date Type Department Care Team (Late st Contact Info) Description 02/05/2025 10:45 AM EST Office Visit [facility] 230 [place] [address] Sarah Peres MD 230 [place] [address] 02/11/2025 2:45 PM EST Clinical Support [facility] 505 [place] [address] Paola Thurston, KIRIT 505 [place] [address] documented as of this encounter Goals Goal [...] documented as of this encounter Care Teams Liquefaction Plant Operator Relationship Specialty Start Date End Date Genevieve Gtz MD [address] [place] [address] PCP - General Internal Medicine 10/12/22 documented as of this encounter
--- OUTSIDE RECORDS SUMMARY | 2025-02-01 21:33 | XMS_ITS | Encounter Summary ---
Author Organization [employer] Address [address] [facility] 7t [place] [address] Care Team Providers Care Party Plan Selling Distributor Name Role Phone Genevieve Gtz MD Primary Care Pro vider Reason for Visit * Reason Onset Date Comments Med Refill 06/20/2024 Encounter Details Date Type Department Care Team ([facility] Contact Info) Description 06/20/2024 Telephone [facility] MEDICINE 230 [place] [address] Genevieve Gtz MD 230 [place], [place] [phone] Med Refill Social History Tobacco Use Types [...] immediate release tablet To be sent to: [facility]/pharmacy [address] [place] [address] - [address] [place] [address] documented in this encounter Plan of Treatment Upcoming Encounters Date Type Department Care Team (Late st Contact Info) Description 02/05/2025 10:45 AM EST Office Visit [facility] MEDICINE 230 [place] [address] Sarah Peres MD 230 [place] [address] 02/11/2025 2:45 PM EST Clinical Support [facility] 505 [place] [address] Paola Thurston, KIRIT 505 [place] [address] documented as of this encounter Goals Goal [...] documented as of this encounter Care Teams Party Plan Selling Distributor Relationship Specialty Start Date End Date Genevieve Gtz MD [address] [place] [address] PCP - General Internal Medicine 10/12/22 documented as of this encounter
--- OUTSIDE RECORDS SUMMARY | 2025-02-01 21:33 | XMS_ITS | Encounter Summary ---
Author Organization [employer] Address [address] [place] [address] 7[place] [address] Care Team Providers Care Land Commissioner Name Role Phone Genevieve Gtz MD Primary Care Pro vider Reason for Visit * Reason Onset Date Comments Med Refill 10/26/2022 Encounter Details Date Type Department Care Team ([facility] st Contact Info) Description 10/26/2022 Telephone [facility] MEDICINE 230 [place], [place] [phone] Genevieve Gtz MD 230 [place], [place] [phone] Med Refill Social History Tobacco Use Types [...] medication oxycodone 5 mg. Please send to [facility]/pharmacy #[id number] - [place] - [address] Cool documented in this encounter Plan of Treatment Upcoming Encounters Date Type Department Care Team (Late st Contact Info) Description 02/05/2025 10:45 AM EST Office Visit [facility] 230 [place] [address] Sarah Peres MD 230 [place] [address] 02/11/2025 2:45 PM EST Clinical Support [facility] 505 [place], [place] [phone] Paola Thurston, KIRIT 505 [place], [place] [phone] documented as of this encounter Visit Diagnoses Not on filedocumented in this encounter Additional Health Concerns Assessment Noted Time PHQ-9 Depression Total Score: 0 10/13/19 2:37 PM EDT documented as of this encounter Care Teams Land Commissioner Relationship Specialty Start Date End Date Genevieve Gtz MD [address] [place] [address] PCP - General Internal Medicine 10/12/22 documented as of this encounter
--- OUTSIDE RECORDS SUMMARY | 2025-02-01 21:33 | XMS_ITS | Encounter Summary ---
Author Organization [employer] Address [address] [facility] 7t [place] [address] Care Team Providers Care Circuit Court Judge Name Role Phone Genevieve Gtz MD Primary Care Pro vider Reason for Visit * Reason Onset Date Comments Med Refill 01/08/2023 Encounter Details Date Type Department Care Team ([facility] Contact Info) Description 01/08/2023 Telephone [facility] MEDICINE 230 [place], [place] [phone] Genevieve Gtz MD 230 [place], [place] [phone] Med Refill Social History Tobacco Use Types [...] Description 02/05/2025 10:45 AM EST Office Visit [facility] MEDICINE 230 [place] [address] Sarah Peres MD 230 [place] [address] 02/11/2025 2:45 PM EST Clinical Support [facility]S 505 [place] [address] Paola Thurston, KIRIT 505 [place] [address] documented as of this encounter Visit Diagnoses Not on filedocumented in this encounter Additional Health Concerns Assessment Noted Time PHQ-9 Depression Total Score: 0 10/13/19 2:37 PM EDT documented as of this encounter Care Teams Circuit Court Judge Relationship Specialty Start Date End Date Genevieve Gtz MD [address] [place] [address] PCP - General Internal Medicine 10/12/22 documented as of this encounter
--- OUTSIDE RECORDS SUMMARY | 2025-02-01 21:33 | XMS_ITS | Encounter Summary ---
Author Organization [employer] Address [address] [facility] 7t [place] [address] Care Team Providers Care Target Developer Name Role Phone Genevieve Gtz MD Primary Care Pro vider Reason for Visit * Reason Onset Date Comments Call Back Request 06/15/2023 Encounter Details Date Type Department Care Team ([facility] Contact Info) Description 06/15/2023 Telephone [facility] MEDICINE 230 [place], [place] [phone] Genevieve Gtz MD 230 [place], [place] [phone] Call Back Request Social History Tobacco Use [...] pt requesting a call back in regards 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 documented in this encounter Plan of Treatment Upcoming Encounters Date Type Department Care Team ([facility] st Contact Info) Description 02/05/2025 10:45 AM EST Office Visit [facility] MEDICINE 230 [place] [address] Sarah Peres MD 230 [place] [address] 02/11/2025 2:45 PM EST Clinical Support [facility] MED [facility]EDS 505 [place], [place] [phone] Paola Thurston, KIRIT 505 [place] [address] documented as of this encounter Goals Goal [...] documented as of this encounter Care Teams Target Developer Relationship Specialty Start Date End Date Genevieve Gtz MD 230 [place] [address] PCP - General Internal Medicine 10/12/22 documented as of this encounter
--- OUTSIDE RECORDS SUMMARY | 2025-02-01 21:33 | XMS_ITS | Encounter Summary ---
Author Organization [employer] Address [address] [facility] 7t [place] [address] Care Team Providers Care Cutter Aluminum Sheet Name Role Phone Genevieve Gtz MD Primary Care Pro vider Reason for Visit * Reason Onset Date Comments Med Refill 10/23/2024 Encounter Details Date Type Department Care Team ([facility] Contact Info) Description 10/23/2024 Telephone [facility] MEDICINE 230 [place] [address] Genevieve Gtz MD 230 [place], [place] [phone] Med Refill Social History Tobacco Use Types [...] from pt retuning call Contact pt at [phone] * Telephone Encounter - Paola Thurston RN - 10/23/2024 10:24 AM EDT Pt requesting refill of Oxycodone 5mg. No show to TRANSLATOR DEAF appt 08/06/24. Multiple TC to pt to r/s, no answer, no c/b. Also no showed to appt with you 09/26/24. Please advise. * Telephone Encounter - Colten Mullen - 10/23/2024 10:07 AM EDT TC from pt requesting medication refill. Medications needing refill : oxyCODONE (Roxicodone) 5 MG immediate release tablet To be sent to: [facility]/pharmacy #[id number] documented in this encounter Plan of Treatment Upcoming Encounters Date Type Department Care Team (Late st Contact Info) Description 02/05/2025 10:45 AM EST Office Visit [facility] MEDICINE 230 [place] [address] Sarah Peres MD 230 [place] [address] 02/11/2025 2:45 PM EST Clinical Support [facility] MED [facility] PEDS 505 [place] [address] Paola Thurston, KIRIT 505 [place], [place] documented as of this encounter Goals [...] documented as of this encounter Care Teams Cutter Aluminum Sheet Relationship Specialty Start Date End Date Genevieve Gtz MD 230 [place] [address] PCP - General Internal Medicine 10/12/22 documented as of this encounter
--- OUTSIDE RECORDS SUMMARY | 2025-02-01 21:33 | XMS_ITS | Encounter Summary ---
Author Organization [facility] Address [address] [place] [address] 7t [place] [address] Care Team Providers Care Pet Counselor Name Role Phone Carolina Hsu EDUCATION ADVISER Primary Care Provider Genevieve Wilson MD Primary Care Pro vider Encounter Details Date Type Department Care Team (Late Contact Info) Description 09/11/2022 Abstract [facility] MEDICINE 230 [place] [address] Carolina Hsu FNP Social History Tobacco Use [...] 02/05/2025 10:45 AM EST Office Visit [facility] MEDICINE 230 [place] [address] Sarah Peres MD 230 [place] [address] 02/11/2025 2:45 PM EST Clinical Support [facility] MED [facility]EDS 505 [place] [address] Paola Thurston, RN 505 [place] [address] documented as of this encounter Visit Diagnoses Not on filedocumented in this encounter Care Teams Pet Counselor Relationship Specialty Start Date End Date Carolina Hsu FNP PCP - General Family Medicine 01/16/22 10/11/22 Genevieve Gtz MD [address] [place] [address] PCP - General Internal Medicine 10/12/22 documented as of this encounter
--- OUTSIDE RECORDS SUMMARY | 2025-02-01 21:34 | XMS_ITS | Encounter Summary ---
Author Organization [facility] Address [address] [place] [phone] Phone Care Team Providers Care Incinerator Plant Supervisor Name Role Phone EmilyAlyssa hutchinson Primary Care Provider Unava ilable Encounter Details Date Type Department Care Team (Late st Contact Info) Description 08/12/2024 TCM in Dialysis Clinic [facility] [address] [phone] Placido Carver MD [address] [phone] Social History Tobacco Use Types [...] 08/12/2024 The patient was seen for a jfmy-pb-fquw visit as part of Transitional Care Management services. Attending Business Executive: PLACIDO CARVER MD Dialysis Location: [facility] Schedule: Shift: 2 INTERACTIVE CONTACT [...] follow-up appointments noted. VISIT DIAGNOSES CPT Code 02578 - High complexity, seen within 7 days of discharge. N18.6 End stage renal disease Signed by: PLACIDO CARVER MD on 08/12/2024 at 01:16:47 PM Transcribed by: PLACIDO CARVER MD on 08/12/2024 at 01:16:47 PM documented in this encounter Plan of Treatment Not on file documented as of this encounter Visit Diagnoses Not on filedocumented in this encounter Care Teams Incinerator Plant Supervisor Relationship Specialty Start Date End Date Alyssa Manzano DO 230 [place] [address] PCP - General Family Medicine 03/02/21 documented as of this encounter
--- OUTSIDE RECORDS SUMMARY | 2025-02-01 21:34 | XMS_ITS | Encounter Summary ---
Author Organization [facility] [employer] [facility] Prior to 12/28/2023 Address [address] [place] [address] Care Team Providers Care Automotive Product Specialist Name Role Phone Chanda Nugent Primary Care Provider Mindy mercado Encounter Details Date Type Department Care Team Description 07/01/2018 Telephone [facility] [address] [facility] [address] [place] [address] rEna Nunez MD Social History Tobacco Use Types [...] on filedocumented in this encounter Care Teams Automotive Product Specialist Relationship Specialty Start Date End Date Chanda Nugent PCP - General Internal Medicine 01/10/18 documented as of this encounter
--- OUTSIDE RECORDS SUMMARY | 2025-02-01 21:34 | XMS_ITS | Encounter Summary ---
Author Organization [employer] Address 75 [facility] 7t [place] [address] Care Team Providers Care Property Appraiser Name Role Phone Genevieve Gtz MD Primary Care Pro vider Reason for Visit * Reason Onset Date Comments Medication Question 12/25/2024 Encounter Details Date Type Department Care Team ([facility] Contact Info) Description 12/25/2024 Telephone [facility] MEDICINE 230 [place], [place] [phone] Genevieve Gtz MD 230 [place], [place] [phone] Medication Question Social History Tobacco Use Types [...] Base) MCG/ACT inhaler To be sent to: [facility]/pharmacy #[id number] [place] [address] documented in this encounter Plan of Treatment Upcoming Encounters Date Type Department Care Team (Late st Contact Info) Description 02/05/2025 10:45 AM EST Office Visit [facility] MEDICINE 230 [place] [address] Sarah Peres MD 230 [place] [address] 02/11/2025 2:45 PM EST Clinical Support [facility] MED [facility]EDS 505 [place] [address] Paola Thurston, KIRIT 505 [place] [address] documented as of this encounter Goals Goal [...] as of this encounter Care Teams Property Appraiser Relationship Specialty Start Date End Date Genevieve Gtz MD [address] [place] [address] PCP - General Internal Medicine 10/12/22 documented as of this encounter
--- OUTSIDE RECORDS SUMMARY | 2025-02-01 21:34 | XMS_ITS | Encounter Summary ---
Author Organization [facility] Prior to 12/28/2023 Address [address] [place] [address] Care Team Providers Care Porcelain Enamel Laborer Name Role Phone Ed Nash MD Primary Care Provider Un available Community, Pcp Primary Care Provider Unavailabl e Community, Pcp Primary Care Provider Unavailabl e Chanda Nugent Primary Care Provider Unavailabl e Reason for Visit * Reason Onset Date Comments Provider Call Back 03/22/2016 Encounter Details Date Type Department Care Team Description 03/22/2016 Telephone General Surgery [address] [place] [address] Ksenia Villavicencio MD [address] [place] [address] Provider Call Back Social History Tobacco Use [...] had surgery by Dr Villavicencio Post op Jennifer Alegria 03/16/16. Patient states she is having a lot of pain where the incision is. Mostly hurst by the belly button. Having [place] and chills. Red and warm to touch where the incision is. Please review and advise. documented in this encounter Plan of Treatment Not on file documented as of this encounter Visit Diagnoses Not on filedocumented in this encounter Care Teams Porcelain Enamel Laborer Relationship Specialty Start Date End Date Ed Nash MD PCP - General Internal Medicine 11/11/15 Community, Pcp PCP - General Internal Medicine 07/27/16 08/21/17 Community, Pcp PCP - General Internal Medicine 08/22/17 01/09/18 Chanda Nugent PCP - General Internal Medicine 01/10/18 documented as of this encounter
--- OUTSIDE RECORDS SUMMARY | 2025-02-01 21:34 | XMS_ITS | Encounter Summary ---
Author Organization [facility] Address [address] [place] [phone] Phone Care Team Providers Care Wildlife Technician Name Role Phone EmilyAlyssa hutchinson Primary Care Provider Unava ilable Encounter Details Date Type Department Care Team (Late st Contact Info) Description 07/08/2024 TCM in Dialysis Clinic [facility] [address] [address] Placido Carver MD [address] [address] Social History Tobacco Use Types [...] 07/08/2024 The patient was seen for a fjwi-ox-tpzo visit as part of Transitional Care Management services. Attending Lead Java Programmer: PLACIDO CARVER MD Dialysis Location: [facility] Schedule: Shift: 2 INTERACTIVE [...] - No ulcers. VISIT DIAGNOSES CPT Code 83449 - High complexity, seen within 7 days of discharge. N18.6 End stage renal disease Signed by: PLACIDO CARVER MD on 07/26/2024 at 02:13:33 PM Transcribed by: PLACIDO CARVER MD on 07/26/2024 at 02:13:33 PM documented in this encounter Plan of Treatment Not on file documented as of this encounter Visit Diagnoses Not on filedocumented in this encounter Care Teams Wildlife Technician Relationship Specialty Start Date End Date Alyssa Manzano DO 230 [place] [address] PCP - General Family Medicine 03/02/21 documented as of this encounter
--- OUTSIDE RECORDS SUMMARY | 2025-02-01 21:34 | XMS_ITS | Encounter Summary ---
Author Organization [employer] [facility] Prior to 12/28/[address] [place] [address] Care Team Providers Care Edge Grinder Machine Name Role Phone Ed Nash MD Primary Care Provider Un available Community, Pcp Primary Care Provider Unavailabl e Community, Pcp Primary Care Provider Unavailabl e Chanda Nugent Primary Care Provider Unavailabl e Encounter Details Date Type Department Care Team Description 07/04/2016 Hospital Medical Records [address] [place] [address] Regino Cook MD Social History Tobacco Use Types Packs/Day [...] on filedocumented in this encounter Care Teams Edge Grinder Machine Relationship Specialty Start Date End Date Ed Nash MD PCP - General Internal Medicine 11/11/15 Community, Pcp PCP - General Internal Medicine 07/27/16 08/21/17 Community, Pcp PCP - General Internal Medicine 08/22/17 01/09/18 Chanda Nugent PCP - General Internal Medicine 01/10/18 documented as of this encounter
--- OUTSIDE RECORDS SUMMARY | 2025-02-01 21:34 | XMS_ITS | Encounter Summary ---
Author Organization [facility] Address [address] [place] [phone] Phone Care Team Providers Care Lead Recoverer Name Role Phone EmilyAlyssa hutchnison Primary Care Provider Unava ilable Encounter Details Date Type Department Care Team (Late st Contact Info) Description 09/23/2024 TCM in Dialysis Clinic [facility] [address] [phone] Placido Carver MD [address] [address] Social History Tobacco Use Types [...] 09/23/2024 The patient was seen for a xygy-cv-cqmt visit as part of Transitional Care Management services. Attending Refrigeration Installer: PLACIDO CARVER MD Dialysis Location: [facility] Schedule: Shift: 2 INTERACTIVE CONTACT Contact [...] with the patient. VISIT DIAGNOSES CPT Code 78086 - High complexity, seen within 7 days of discharge. N18.6 End stage renal disease Signed by: PLACIDO CARVER MD on 09/23/2024 at 10:14:56 PM Transcribed by: PLACIDO CARVER MD on 09/23/2024 at 10:14:56 PM documented in this encounter Plan of Treatment Not on file documented as of this encounter Visit Diagnoses Not on filedocumented in this encounter Care Teams Lead Recoverer Relationship Specialty Start Date End Date Alyssa Manzano DO [address] [place] [address] PCP - General Family Medicine 03/02/21 documented as of this encounter
--- OUTSIDE RECORDS SUMMARY | 2025-02-01 21:34 | XMS_ITS | Encounter Summary ---
Author Organization [employer] Address 75 [facility] 7t [place] [address] Care Team Providers Care Airport Ramp Agent Name Role Phone Genevieve Gtz MD Primary Care Pro vider Reason for Visit * Reason Onset Date Comments Hospital Follow-up 01/09/2025 Encounter Details Date Type Department Care Team ([facility] Contact Info) Description 01/09/2025 Telephone [facility] MEDICINE 230 [place] [address] Genevieve Gtz MD 230 [place] [address] Hospital Follow-up Social History Tobacco Use Types [...] from pt retuning call Contact pt at [phone] * Telephone Encounter - Clarence Taylor - 01/09/2025 12:59 PM EST Tc from pt requesting a HDF appt. 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 *Send message to [facility] Clinical Care Coordinators Please contact pt at [phone] documented in this encounter Plan of Treatment Upcoming Encounters Date Type Department Care Team ([facility] st Contact Info) Description 02/05/2025 10:45 AM EST Office Visit [facility] MEDICINE [address] [place] [address] Sarah Peres MD 230 [place] [address] 02/11/2025 2:45 PM EST Clinical Support [facility] MED & PEDS 505 [place] [address] Paola Thurston, RN 505 [place] [address] documented as of this encounter Goals Goal [...] documented as of this encounter Care Teams Airport Ramp Agent Relationship Specialty Start Date End Date Genevieve Gtz MD [address] [place] [address] PCP - General Internal Medicine 10/12/22 documented as of this encounter
--- OUTSIDE RECORDS SUMMARY | 2025-02-01 21:34 | XMS_ITS | Encounter Summary ---
Author Organization [facility] [employer] [facility] Prior to 12/28/[address] [place] [address] Care Team Providers Care Blindstitch Hemmer Name Role Phone Chanda Nugent Primary Care Provider Mindy mercado Encounter Details Date Type Department Care Team Description 04/02/2018 Hospital Medical Records [address] [place] [address] Hayden Troncoso MD Social History Tobacco Use [...] on filedocumented in this encounter Care Teams Blindstitch Hemmer Relationship Specialty Start Date End Date Chanda Nugent PCP - General Internal Medicine 01/10/18 documented as of this encounter
--- OUTSIDE RECORDS SUMMARY | 2025-02-01 21:34 | XMS_ITS | Encounter Summary ---
Author Organization [facility] Prior to 12/28/2023 Address [address] [place] [address] Care Team Providers Care Logger All Round Name Role Phone Melvi, Pcp Primary Care Provider Chanda Thapa Primary Care Provider Mindy mercado Encounter Details Date Type Department Care Team Description 11/28/2017 Hospital Medical Records [address] [place] [address] Hayden Troncoso MD Social History Tobacco Use [...] on filedocumented in this encounter Care Teams Logger All Round Relationship Specialty Start Date End Date Melvi, Pcp PCP - General Internal Medicine 08/22/17 01/09/18 Chanda Nugent PCP - General Internal Medicine 01/10/18 documented as of this encounter
--- OUTSIDE RECORDS SUMMARY | 2025-02-01 21:34 | XMS_ITS | Clinical Summary ---
Author Organization [facility] Address [address] [address] Phone Care Team Providers Care Farm Planner Name Role Phone Katlyn Manzanofer Primary Care [...] Encounters Date Type Department Care Team Description 01/21/2025 Treatment [facility] [address] [phone] Ed Carver MD End stage renal disease; Dependence on renal dialysis 01/19/2025 Orders Only [facility] [address] [phone] Ed Carver MD 12/04/2024 Treatment [facility] [address] [phone] Ed Carver MD End stage renal disease; Dependence on renal dialysis 11/25/2024 Treatment [facility] [address] [phone] Ed Carver MD End stage renal disease; Dependence on renal dialysis 11/22/2024 [facility] in Dialysis Clinic [facility] [address] [phone] Ed Carver MD 11/22/2024 Treatment [facility] [address] [phone] Ed Carver MD End stage renal disease; [...] Procedure Name Priority Date/Time Associated Diagnosis Comments VANCOMYCIN, RANDOM Routine 01/25/2025 10 :09 AM EST HEPATITIS B SURFACE ANTIGEN W/REFL CONFIRM Routine 01/19/2025 3:00 AM EST TRANSFERRIN SATURATION Routine 3:00 AM EST PROTEIN, TOTAL, SERUM Routine 01/19/2025 3:00 AM EST ELECTROLYTE PANEL Routine 01/19/2025 3:0 0 AM EST MAGNESIUM Routine 01/19/2025 3:00 AM EST LACTATE DEHYDROGENASE Routine 01/19/2025 3:00 AM EST LIH (HC) Routine 01/19/2025 3:00 AM EST CREATININE, SERUM Routine 01/19/2025 3:0 0 AM EST GLUCOSE, RANDOM Routine 01/19/2025 3:00 AM EST BUN/CREATININE RATIO Routine 01/19/2025 3:00 AM EST BILIRUBIN, TOTAL Routine 01/19/2025 3:00 AM EST AST Routine 01/19/2025 3:00 AM EST ALKALINE PHOSPHATASE Routine 01/19/2025 3:00 AM EST ALT Routine 01/19/2025 3:00 AM EST CALCIUM PHOSPHORUS PRODUCT, ADJUSTED (HC) Routine 01/19/2025 3:00 AM EST FERRITIN Routine 01/19/2025 3:00 AM EST KT/V NATURAL LOG, URR (HC) Routine 01/19/2025 3:00 AM EST COLLECTION DATE (HC) Routine 01/19/2025 3:00 AM EST CBC AND DIFFERENTIAL Routine 01/19/2025 3:00 AM EST HEMOGLOBIN Routine 12/18/2024 3:00 AM EDT HEMOGLOBIN [...] URR (HC) Routine 11/11/2024 3:00 AM EDT from Last 3 Months Results * (ABNORMAL) Vancomycin, random (01/25/2025 10:09 AM EST) Vancomycin, Random 22.9(H) 15 - 20 mcg/mL See order comments 01/25/2025 10:0 9 AM EST 01/25/2025 10:09 AM EST us Kisha Chavez MD LAB BLOOD ORDERABLES Final Re sult [place] See order [place] [address] * Collection Date (01/19/2025 3:00 AM EST) Collection Date See Comment [facility] Comment: Patient sample received may exceed specimen stability, based on the collection date electronically provided. When reviewing patient results, verify collection information and consider specimen stability before acting on any critical or panic results. 01/19/2025 3:00 AM EST us Ed Carver MD LAB HISTORICA [id number] RESULTS Final Result Performing Organization Address City/[facility]/ZIP Co de Phone Number [facility] [address] [place] [address] * LIH (01/19/2025 3:00 AM EST) Only the most recent of3 resultswithin the time period is included. Lipemia Normal Normal [facility] Icterus Normal Normal [facility] Hemolysis Normal Normal [facility] 01/19/2025 3:00 AM EST 01/23/2025 1:08 PM EST us Ed Carver MD LAB HISTORICA [id number] RESULTS Final Result Performing Organization Address [facility] de Phone Number [facility] [address] [place] [address] * (ABNORMAL) Kt/V Natural Log, URR (01/19/2025 3:00 AM EST) Only the most recent of3 resultswithin the time period is included. Pathologist [facility] Treatment Time 90 min [facility] Pre-Weight, lb 85.5 kg [facility] Post-Weight, lb 81.9 kg [facility] BUN Post Dialysis 27(H) 7 - 25 mg/dL [facility] BUN 91(H) 7 - 25 mg/dL [facility] UREA REDUCTION RATIO (%) 70 >=65 % [facility] Kt/V Natural Log 1.39 >=1.2 [facility] Ultrafiltration Rate 29(H) <=13 mL/kg/hr [facility] Comment: Recommend achieving Ultrafiltration Rate (UFR) <=10 mL/kg/hr References: Estelle GARCIA et al. Kidney Int. 2010; 79(2):250-257 01/19/2025 3:00 AM EST 01/23/2025 1:05 PM EST us Ed Carver MD LAB [id number] RESULTS Edited Result - Final Performing Organization Address [facility] Co de Phone Number [facility] [address] [place] [address] * (ABNORMAL) Calcium Phosphorus Product, Adjusted (01/19/2025 3:00 AM EST) Only the most recent of3 resultswithin the time period is included. Pathologist [facility] Albumin 4.0 3.6 - 5.4 g/dL [facility] Calcium 8.5(L) 8.6 - 10.3 mg/dL [facility] Phosphorus, Serum 9.3(H) 2.5 - 5.0 mg/dL [facility] Ca*PO4 79.0(A) <55.0 mg2/dL2 [facility] Calcium, Adjusted Total 8.5(L) 8.6 - 10.3 mg/dL [facility] CA*PO4 CORRCTD 79.0(A) <55.0 mg2/dL2 [facility] 01/19/2025 3:00 AM EST 01/23/2025 1:08 PM EST us Ed Carver MD LAB HISTORICA [id number] RESULTS Final Result Performing Organization Address [facility] de Phone Number [facility] [address] [place] [address] * Hepatitis B Surface Ag w/Reflex Confirmation (01/19/2025 3:00 AM EST) Only the most recent of3 resultswithin the time period is included. Pathologist [facility] Hep B Surface Antigen Negative Negative [facility] 01/19/2025 3:00 AM EST 01/23/2025 1:08 PM EST Ed Carver MD LAB BLOOD ORDERABLES Final Result Performing Organization Address [facility] Co de Phone Number [facility] [address] [place] [address] * BUN/CREATININE RATIO (01/19/2025 3:00 AM EST) Only the most recent of3 resultswithin the time period is included. BUN/Creatinine Ratio 7.3 <=23.0 [facility] 01/19/2025 3:00 AM EST 01/23/2025 1:08 PM EST us Ed Carver MD LAB HISTORICA [id number] RESULTS Final Result Performing Organization Address [facility] de Phone Number [facility] [address] [place] [address] * (ABNORMAL) TSAT (01/19/2025 3:00 AM EST) Only the most recent of3 resultswithin the time period is included. [facility] Iron 62 50 - 170 ug/dL [facility] Transferrin 143(L) 250 - 380 mg/dL [facility] TIBC 200(L) 211 - 406 ug/dL [facility] Iron Saturation (TSat) 31 22 - 52 % [facility] 01/19/2025 3:00 AM EST 01/23/2025 1:08 PM EST Ed Carver MD LAB BLOOD ORDERABLES Final Result Performing Organization Address [facility] de Phone Number [facility] [address] [place] [address] * (ABNORMAL) CBC and Differential (01/19/2025 3:00 AM EST) Only the most recent of3 resultswithin the time period is included. DIFFERENTIAL MANUAL, 2 Not Indicated [facility] White Blood Cells 6.0 4.0 - 10.0 K/uL [facility] RBC 2.43(L) 3.93 - 5.22 M/uL [facility] Hgb 7.3(L) 11.2 - 15.7 g/dL [facility] Hemoglobin x 3 21.9(L) 33.6 - 47.1 g/dL [facility] Hematocrit 22.7(L) 34.1 - 44.9 % [facility] MCV 93.4 79.4 - 94.8 fL [facility] MCH 30.0 25.6 - 32.2 pg [facility] MCHC 32.2 32.2 - 35.5 g/dL [facility] RDW 14.2 11.7 - 14.4 % [facility] Platelets 184 182 - 369 K/uL [facility] MPV 12.8 9.2 - 12.8 fL [facility] Neutrophils Relative 74.4(H) 34.0 - 71.1 % [facility] Lymphocytes Relative 11.3(L) 19.3 - 51.7 % [facility] Monocytes 9.8 4.7 - 12.5 % [facility] Eosinophils Relative 3.1 0.7 - 5.8 % [facility] Basophils Relative 0.7 0.1 - 1.2 % [facility] Immature Granulocytes 0.7 0.0 - 1.0 % [facility] 01/19/2025 3:00 AM EST 01/23/2025 1:04 PM EST us Ed Carver MD LAB BLOOD ORDERABLES Final Result Performing Organization Address [facility] de Phone Number [facility] [address] [place] [address] * ALT (01/19/2025 3:00 AM EST) Only the most recent of3 resultswithin the time period is included. ALT (SGPT) 20 10 - 49 U/L [facility] 01/19/2025 3:00 AM EST 01/23/2025 1:08 PM EST us Ed Carver MD LAB BLOOD ORDERABLES Final Result Performing Organization Address [facility] de Phone Number [facility] [address] [place] [address] * (ABNORMAL) AST (01/19/2025 3:00 AM EST) Only the most recent of3 resultswithin the time period is included. AST (SGOT) 36(H) <34 U/L [facility] 01/19/2025 3:00 AM EST 01/23/2025 1:08 PM EST us Ed Carver MD LAB BLOOD ORDERABLES Final Result Performing Organization Address City/[facility]/ZIP Co de Phone Number [facility] [address] [place] [address] * Protein, total (01/19/2025 3:00 AM EST) Only the most recent of3 resultswithin the time period is included. Total Protein 7.2 6.4 - 8.9 g/dL [facility] 01/19/2025 3:00 AM EST 01/23/2025 1:08 PM EST us Ed Carver MD LAB BLOOD ORDERABLES Final Result Performing Organization Address [facility] Co de Phone Number [facility] [address] [place] [address] * (ABNORMAL) Alkaline phosphatase (01/19/2025 3:00 AM EST) Only the most recent of3 resultswithin the time period is included. Alkaline Phosphatase 222(H) 46 - 116 U/L [facility] 01/19/2025 3:00 AM EST 01/23/2025 1:08 PM EST us Ed Carver MD LAB BLOOD ORDERABLES Final Result Performing Organization Address [facility] de Phone Number [facility] [address] [place] [address] * (ABNORMAL) Magnesium (01/19/2025 3:00 AM EST) Only the most recent of3 resultswithin the time period is included. Magnesium 2.9(H) 1.9 - 2.7 mg/dL [facility] 01/19/2025 3:00 AM EST 01/23/2025 1:08 PM EST us Ed Carver MD LAB BLOOD ORDERABLES Final Result Performing Organization Address [facility] Co de Phone Number [facility] [address] [place] [address] * (ABNORMAL) Lactate dehydrogenase (01/19/2025 3:00 AM EST) Only the most recent of3 resultswithin the time period is included. LDH 328(H) 120 - 246 U/L [facility] 01/19/2025 3:00 AM EST 01/23/2025 1:08 PM EST Ed Carver MD LAB BLOOD ORDERABLES Final Result Performing Organization Address [facility] Co de Phone Number [facility] [address] [place] [address] * Glucose, random (01/19/2025 3:00 AM EST) Only the most recent of3 resultswithin the time period is included. Glucose 84 70 - 99 mg/dL [facility] Comment: ADA guidelines outline the following fasting glucose ranges: Normal: <100 Prediabetes: 100-125 Diabetes: >125 01/19/2025 3:00 AM EST 01/23/2025 1:08 PM EST Ed Carver MD LAB BLOOD ORDERABLES Final Result Performing Organization Address [facility] de Phone Number [facility] [address] [address] * Ferritin (01/19/2025 3:00 AM EST) Only the most recent of3 resultswithin the time period is included. Ferritin 162 10 - 291 ng/mL [facility] 01/19/2025 3:00 AM EST 01/23/2025 1:08 PM EST Ed Carver MD LAB BLOOD ORDERABLES Final Result Performing Organization Address [facility] de Phone Number [facility] [address] [address] * (ABNORMAL) Creatinine, serum (01/19/2025 3:00 AM EST) Only the most recent of3 resultswithin the time period is included. Creatinine 12.50(H) 0.55 - 1.02 mg/dL [facility] 01/19/2025 3:00 AM EST 01/23/2025 1:08 PM EST us Ed Carver MD LAB BLOOD ORDERABLES Final Result Performing Organization Address [facility] Co de Phone Number [facility] [address] [place] [address] * Bilirubin, total (01/19/2025 3:00 AM EST) Only the most recent of3 resultswithin the time period is included. Total Bilirubin 0.3 0.3 - 1.2 mg/dL [facility] 01/19/2025 3:00 AM EST 01/23/2025 1:08 PM EST us Ed Carver MD LAB BLOOD ORDERABLES Final Result Performing Organization Address [facility] de Phone Number [facility] [address] [place] [address] * (ABNORMAL) Electrolyte panel (01/19/2025 3:00 AM EST) Only the most recent of3 resultswithin the time period is included. Sodium 137 136 - 145 mEq/L [facility] Potassium 5.7(H) 3.4 - 5.0 mEq/L [facility] Chloride 100 98 - 107 mEq/L [facility] Bicarbonate (CO2) 18(L) 21 - 31 mEq/L [facility] Anion Gap 19(H) 3 - 14 mEq/L [facility] 01/19/2025 3:00 AM EST 01/23/2025 1:08 PM EST us Ed Carver MD LAB BLOOD ORDERABLES Final Result Performing Organization Address [facility] Co de Phone Number [facility] [address] [place] [address] * (ABNORMAL) Hemoglobin (12/18/2024 3:00 AM EDT) Only the most recent of3 resultswithin the time period is included. Hgb 9.5(L) 11.2 - 15.7 g/dL [facility] Hemoglobin x 3 28.5(L) 33.6 - 47.1 g/dL [facility] 12/18/2024 3:00 AM EDT 12/19/2024 12:35 PM EDT us Ed Carver MD LAB BLOOD ORDERABLES Final Result Performing Organization Address [facility] de Phone Number [facility] [address] [place] [address] * PTH, Intact (11/27/2024 3:00 AM EDT) PTH, Intact 550 160 - 721 pg/mL [facility] Comment: Suggested (KDIGO) ESRD maintenance range is two to nine times the upper normal limit (80.1 pg/mL) for the laboratory. 11/27/2024 3:00 AM EDT 11/28/2024 12:17 PM EDT us Ed Carver MD LAB BLOOD ORDERABLES Final Result Performing Organization Address [facility] de Phone Number [facility] [address] [place] [address] * (ABNORMAL) Hemoglobin A1c (11/27/2024 3:00 AM EDT) Hemoglobin A1C 5.7(H) <5.7 % [facility] Comment: Methodology: Enzymatic Normal: <5.7% Prediabetes: 5.7-6.4% Diabetes: >6.4% Diabetic Glucose Control Evaluation: Therapeutic action suggested at >8.0% ADA recommends a glycemic goal of <7.0% 11/27/2024 3:00 AM EDT 11/28/2024 12:24 PM EDT us Ed Carver MD LAB BLOOD ORDERABLES Final Result Performing Organization Address [facility] de Phone Number [facility] [address] [place] [address] * (ABNORMAL) Lipid panel (11/27/2024 3:00 AM [...] ORDERABLES Final Result [facility] [address] [place] [address] from Last 3 Months Insurance [facility] ([id number]) [facility] ([id number]) [facility] ([id number]) Care Teams Farm Planner Relationship Specialty Start Date End Date Alyssa Manzano DO [address] [place] [phone] PCP - General Family Medicine 03/02/21
--- OUTSIDE RECORDS SUMMARY | 2025-02-01 21:34 | XMS_ITS | Encounter Summary ---
Author Organization [facility] Prior to 12/28/2023 Address [address] [place] [address] Care Team Providers Care Hospice Clinical Supervisor Name Role Phone Melvi, Pcp Primary Care Provider Chanda Thapa Primary Care Provider Mindy mercado Encounter Details Date Type Department Care Team Description 11/02/2017 Hospital Medical Records [address] [place] [address] Hayden Troncoso MD Social History Tobacco Use [...] on filedocumented in this encounter Care Teams Hospice Clinical Supervisor Relationship Specialty Start Date End Date Melvi, Pcp PCP - General Internal Medicine 08/22/17 01/09/18 Chanda Nugent PCP - General Internal Medicine 01/10/18 documented as of this encounter
--- OUTSIDE RECORDS SUMMARY | 2025-02-01 21:34 | XMS_ITS | Encounter Summary ---
Author Organization [facility] Prior to 12/28/[address] [place] [address] Care Team Providers Care Intel Analyst Name Role Phone Chanda Nugent Primary Care Provider Mindy mercado Encounter Details Date Type Department Care Team Description 02/26/2018 Hospital Medical Records [address] [place] [address] Hayden Troncoso MD Social History Tobacco Use [...] on filedocumented in this encounter Care Teams Intel Analyst Relationship Specialty Start Date End Date Chanda Nugent PCP - General Internal Medicine 01/10/18 documented as of this encounter
--- OUTSIDE RECORDS SUMMARY | 2025-02-01 21:34 | XMS_ITS | Encounter Summary ---
Author Organization [employer] Address [address] [facility] 7t [place] [address] Care Team Providers Care Commission Specialist Name Role Phone Genevieve Gtz MD Primary Care Pro vider Reason for Visit * Reason Onset Date Comments Med Refill 01/08/2025 Encounter Details Date Type Department Care Team ([facility] Contact Info) Description 01/08/2025 Telephone [facility] MEDICINE [address] [place] [address] Genevieve Gtz MD [address] [place], [place] [phone] Med Refill Social History Tobacco Use Types [...] tablet To be sent to: [facility]/pharmacy [address] [place] [address] - [address] [place] [address] documented in this encounter Plan of Treatment Upcoming Encounters Date Type Department Care Team (Late st Contact Info) Description 02/05/2025 10:45 AM EST Office Visit [facility] MEDICINE [address] [place] [address] Sarah Peres MD [address] [place] [address] 02/11/2025 2:45 PM EST Clinical Support [facility] MED & PEDS [address] [place] [address] Paola Thurston, KIRIT [address] [place] [address] documented as of this encounter Goals Goal [...] documented as of this encounter Care Teams Commission Specialist Relationship Specialty Start Date End Date Genevieve Gtz MD [address] [place] [address] PCP - General Internal Medicine 10/12/22 documented as of this encounter
--- OUTSIDE RECORDS SUMMARY | 2025-02-01 21:34 | XMS_ITS | Encounter Summary ---
Author Organization [employer] Address [address] [place] [address] 7t [place] [address] Care Team Providers Care Service Member Name Role Phone Carolina Hsu Primary Care Provider Genevieve Wilson MD Primary Care Pro vider Reason for Visit * Reason Onset Date Comments Med Refill 07/28/2022 Encounter Details Date Type Department Care Team ([facility] st Contact Info) Description 07/28/2022 Telephone [facility] MEDICINE [address] [place] [address] [phone] Carolina Hsu FNP Med Refill Social History [...] Description 02/05/2025 10:45 AM EST Office Visit [facility] MEDICINE [address] [place] [address] Sarah Peres MD [address] [place], [place] [phone] 02/11/2025 2:45 PM EST Clinical Support [facility] MED & PEDS [address] [place], [place] [phone] Paola Thurston, KIRIT [address] [place], [place] [phone] documented as of this encounter Visit Diagnoses Diagnosis Acute on chronic heart failure, unspecified heart failure type (HCC)- Primary Benign essential hypertension Essential hypertension, benign documented in this encounter Care Teams Service Member Relationship Specialty Start Date End Date Carolina Hsu FNP PCP - General Family Medicine 01/16/22 10/11/22 Genevieve Gtz MD [address] [place], [place] [phone] PCP - General Internal Medicine 10/12/22 documented as of this encounter
--- OUTSIDE RECORDS SUMMARY | 2025-02-01 21:34 | XMS_ITS | Encounter Summary ---
Author Organization [employer] [facility] Prior to 12/28/[address] [place] [address] Care Team Providers Care Boat Deckhand Name Role Phone Ed Nash MD Primary Care Provider Un available Community, Pcp Primary Care Provider Unavailabl e Community, Pcp Primary Care Provider Unavailabl e Chanda Nugent Primary Care Provider Unavailabl e Encounter Details Date Type Department Care Team Description 02/16/2016 Release of Information Medical Records [address] [place] [id number] Abstract, Provider Social History Tobacco Use Types [...] on filedocumented in this encounter Care Teams Boat Deckhand Relationship Specialty Start Date End Date Ed Nash MD PCP - General Internal Medicine 11/11/15 Community, Pcp PCP - General Internal Medicine 07/27/16 08/21/17 Community, Pcp PCP - General Internal Medicine 08/22/17 01/09/18 Chanda Nugent PCP - General Internal Medicine 01/10/18 documented as of this encounter
--- OUTSIDE RECORDS SUMMARY | 2025-02-01 21:34 | XMS_ITS | Encounter Summary ---
Author Organization [facility] [employer] [facility] Prior to 12/28/2023 Address [address] [place] [address] Care Team Providers Care Underground Electrician Name Role Phone Ed Nash MD Primary Care Provider Un available Community, Pcp Primary Care Provider Unavailabl e Community, Pcp Primary Care Provider Unavailabl e Chanda Nugent Primary Care Provider Unavailabl e Encounter Details Date Type Department Care Team Description 07/05/2016 Hospital Medical Records [address] [place] [address] [place] [address] [place] [address] Social History Tobacco Use Types Packs/Day Years [...] on filedocumented in this encounter Care Teams Underground Electrician Relationship Specialty Start Date End Date Ed Nash MD PCP - General Internal Medicine 11/11/15 Community, Pcp PCP - General Internal Medicine 07/27/16 08/21/17 Community, Pcp PCP - General Internal Medicine 08/22/17 01/09/18 Chanda Nugent PCP - General Internal Medicine 01/10/18 documented as of this encounter
--- OUTSIDE RECORDS SUMMARY | 2025-02-01 21:34 | XMS_ITS | Encounter Summary ---
Author Organization [employer] Address [address] [facility] 7[address] [place] [address] Care Team Providers Care Cargo Mate Name Role Phone Genevieve Gtz MD Primary Care Pro vider Reason for Visit * Reason Onset Date Comments Med Refill 12/15/2024 Encounter Details Date Type Department Care Team ([facility] Contact Info) Description 12/15/2024 Telephone [facility] MEDICINE [address] [place] [address] Genevieve Gtz MD [address] [place], [place] [phone] Med Refill Social History Tobacco Use Types [...] immediate release tablet To be sent to: [facility]/pharmacy [address] [place] [address] - [address] [place] [address] documented in this encounter Plan of Treatment Upcoming Encounters Date Type Department Care Team (Late st Contact Info) Description 02/05/2025 10:45 AM EST Office Visit [facility] MEDICINE [address] [place] [address] Sarah Peres MD [address] [place] [address] 02/11/2025 2:45 PM EST Clinical Support [facility] CH[facility] MED & PEDS [address] [place] [address] Paola Thurston, KIRIT [address] [place] [address] documented as of this encounter Goals Goal [...] documented as of this encounter Care Teams Cargo Mate Relationship Specialty Start Date End Date Genevieve Gtz MD [address] [place] [address] PCP - General Internal Medicine 10/12/22 documented as of this encounter
--- OUTSIDE RECORDS SUMMARY | 2025-02-01 21:34 | XMS_ITS | Encounter Summary ---
Author Organization [facility] Prior to 12/28/2023 Address [address] [place] [address] Care Team Providers Care Machine Folder Name Role Phone Melvi, Pcp Primary Care Provider Chanda Thapa Primary Care Provider Mindy mercado Encounter Details Date Type Department Care Team Description 11/07/2017 Hospital Medical Records [address] [place] [address] Funmi Loza Social History Tobacco Use Types Packs/Day Years [...] filedocumented in this encounter Care Teams Machine Folder Relationship Specialty Start Date End Date Community, Pcp PCP - General Internal Medicine 08/22/17 01/09/18 Chanda Nugent PCP - General Internal Medicine 01/10/18 documented as of this encounter
--- OUTSIDE RECORDS SUMMARY | 2025-02-01 21:34 | XMS_ITS | Encounter Summary ---
Author Organization [facility] [facility] [employer] Address [address] [facility] 7t [place] [address] Care Team Providers Care Mild Disabilities Teacher Name Role Phone Genevieve Gtz MD Primary Care Pro vider Reason for Visit * Reason Onset Date Comments Med Refill 01/14/2024 Encounter Details Date Type Department Care Team ([facility] Contact Info) Description 01/14/2024 Telephone [facility] MEDICINE [address] [place] [address] Genevieve Gtz MD [address] [place], [place] [phone] Med Refill Social History Tobacco Use Types [...] any questions you can contact pt at [phone]. * Telephone Encounter - Noelle Rodrigues - 01/14/2024 11:29 AM EST TC from pt requesting medication refill. Medications needing refill : oxyCODONE (Roxicodone) 5 MG immediate release tablet To be sent to: [facility]/pharmacy #[id number] [place] [address] documented in this encounter Plan of Treatment Upcoming Encounters Date Type Department Care Team (Late st Contact Info) Description 02/05/2025 10:45 AM EST Office Visit [facility] MEDICINE [address] [place] [address] Sarah Peres MD [address] [place] [address] 02/11/2025 2:45 PM EST Clinical Support [facility] CHC MED & PEDS [address] [place], [place] [phone] Paola Thurston RN [address] [place] [address] documented as of this encounter Goals Goal [...] documented as of this encounter Care Teams Mild Disabilities Teacher Relationship Specialty Start Date End Date Genevieve Gtz MD [address] [place] [address] PCP - General Internal Medicine 10/12/22 documented as of this encounter
--- OUTSIDE RECORDS SUMMARY | 2025-02-01 21:34 | XMS_ITS | Encounter Summary ---
Author Organization [facility] Prior to 12/28/[address] [place] [address] Care Team Providers Care Night Manager Name Role Phone Chanda Nugent Primary Care Provider Unavailcrow e Encounter Details Date Type Department Care Team Description 07/19/2018 Transfer Records Medical Records [address] [place] [address] Abstract, Provider Social History Tobacco Use Types [...] on filedocumented in this encounter Care Teams Night Manager Relationship Specialty Start Date End Date Chanda Nugent PCP - General Internal Medicine 01/10/18 documented as of this encounter
--- OUTSIDE RECORDS SUMMARY | 2025-02-01 21:34 | XMS_ITS | Encounter Summary ---
Author Organization [employer] Address [address] [facility] 7t [place] [address] Care Team Providers Care Supervisor Slitting And Shipping Name Role Phone Genevieve Gtz MD Primary Care Pro vider Reason for Visit * Reason Comments Med Refill Encounter Details Date Type Department Care Team (Late st Contact Info) Description 08/26/2023 Refill [facility] CHC MED & PEDS [address] [place], [place] [phone] Genevieve Gtz MD [address] [place], [place] [phone] Benign essential hypertension Social History Tobacco Use [...] Description 02/05/2025 10:45 AM EST Office Visit [facility] MEDICINE [address] [place] [address] Sarah Peres MD [address] [place] [address] 02/11/2025 2:45 PM EST Clinical Support [facility] CHC MED & PEDS [address] [place], [place] [phone] Paola Thurston, KIRIT [address] [place] [address] documented as of this encounter Goals Goal [...] documented as of this encounter Care Teams Supervisor Slitting And Shipping Relationship Specialty Start Date End Date Genevieve Gtz MD [address] [place], [place] [phone] PCP - General Internal Medicine 10/12/22 documented as of this encounter
--- OUTSIDE RECORDS SUMMARY | 2025-02-01 21:34 | XMS_ITS | Clinical Summary ---
Author Organization [address] [place] [address] Address [address] [place] [address] Phone Care Team Providers Care Flaking Roll Operator Name Role Phone Betty Nugent MD Primary Care Provider [phone] Surgical History Surgery Date Site/Laterality Comments SECTION [...] complete this topic Insurance [place] - [place] [facility] Member Subscriber Plan / Payer (Ef fective 2023-Present) Name:ROWAN MULTANI Relation to Subscriber:Self Name:Rowan Multani Payer ID:[id number] Group ID:[id number] Type:Not on file Address: [address] [place] [address] Care Teams Flaking Roll Operator Relationship Specialty Start Date End Date Betty Nugent MD [address] [place] [address] PCP - General Internal Medicine 01/10/18
--- OUTSIDE RECORDS SUMMARY | 2025-02-01 21:34 | XMS_ITS | Encounter Summary ---
Author Organization [facility] Prior to 12/28/2023 Address [address] [place] [address] Care Team Providers Care Loss Prevention Coordinator Name Role Phone Melvi, Pcp Primary Care Provider Chanda Thapa Primary Care Provider Mindy mercado Encounter Details Date Type Department Care Team Description 11/02/2017 Hospital Medical Records [address] [place] [address] Hayden Troncoso MD Social History Tobacco Use [...] on filedocumented in this encounter Care Teams Loss Prevention Coordinator Relationship Specialty Start Date End Date Melvi, Pcp PCP - General Internal Medicine 08/22/17 01/09/18 Chanda Nugent PCP - General Internal Medicine 01/10/18 documented as of this encounter
--- OUTSIDE RECORDS SUMMARY | 2025-02-01 21:34 | XMS_ITS | Encounter Summary ---
Author Organization [employer] Address [address] [facility] 7t [place] [address] Care Team Providers Care Conche Loader And Unloader Name Role Phone Genevieve Gtz MD Primary Care Pro vider Reason for Visit * Reason Onset Date Comments Med Refill 12/25/2024 Encounter Details Date Type Department Care Team ([facility] Contact Info) Description 12/25/2024 Telephone [facility] MEDICINE [address] [place] [address] Genevieve Gtz MD [address] [place], [place] [phone] Med Refill Social History Tobacco Use Types [...] immediate release tablet To be sent to: [facility]/pharmacy #[address] [place] [address] - [address] [place] [address] documented in this encounter Plan of Treatment Upcoming Encounters Date Type Department Care Team (Late st Contact Info) Description 02/05/2025 10:45 AM EST Office Visit [facility] MEDICINE [address] [place] [address] Sarah Peres MD [address] [place] [address] 02/11/2025 2:45 PM EST Clinical Support [facility] CHC MED & PEDS [address] [place] [address] Paola Thurston, KIRIT [address] [place] [address] documented as of this encounter Goals Goal [...] documented as of this encounter Care Teams Conche Loader And Unloader Relationship Specialty Start Date End Date Genevieve Gtz MD [address] [place] [address] PCP - General Internal Medicine 10/12/22 documented as of this encounter
--- OUTSIDE RECORDS SUMMARY | 2025-02-01 21:34 | XMS_ITS | Clinical Summary ---
Author Organization [facility] Address [address] [place] [address] Phone Care Team Providers Care Ship Rigger Name Role Phone Genevieve Gtz MD Primary [...] Team Description 01/15/2025 Home Care Visit [facility] [address] [place] [address] Emi Sommer, KIRIT SN OASIS TRANSFER 01/12/2025 3:30 PM EST [facility] [address] [place] [address] Angie Bhatt, PT TELEPHONE ENCOUNTER 01/12/2025 Episode Documentation Update [facility] [address] [place] [address] 01/10/2025 12:30 PM EST Home Care Visit [facility] [address] [place] [address] Emi Sommer, RN SN OASIS START OF CARE (SOC) 01/10/2025 Plan of Care Documentation [facility] [address] [place] [address] 12/22/2024 Orders Only [facility] [address] [place] [phone] Homehealth, Interface ProviderMD 12/22/2024 Home Care Visit [facility] [address] [place], [place] [phone] Angela Foster RN NON ADMIT HOME HEALTH VISIT 12/21/2024 Home Care Visit [facility] [address] [place], [place] [phone] Becca Saenz, KIRIT CASE COMMUNICATION 12/20/2024 Home Care Visit [facility] [address] [place], [place] [phone] Freida Mohan, KIRIT CASE COMMUNICATION 12/20/2024 Home Care Visit [facility] [address] [place], [place] [phone] Becca Saenz, KIRIT CASE COMMUNICATION 12/19/2024 Home Care Visit [facility] [address] [place] [address] Angela Foster RN CASE COMMUNICATION 12/15/2024 Orders Only [facility] [address] [place] [address] Homehealth, Kirill Lindsay MD 11/16/2024 Home Care Visit [facility] [address] [place] [address] Becca Saenz, KIRIT NON ADMIT HOME HEALTH VISIT 11/14/2024 Home Care Visit [facility] [address] [place] [address] Angela Foster RN CASE COMMUNICATION 11/10/2024 Home Care Visit [facility] [address] [place], [place] [phone] Angela Foster, RN TELEPHONE ENCOUNTER 11/09/2024 Home Care Visit [facility] [address] [place], [place] [phone] Becca Saenz, KIRIT CASE COMMUNICATION 11/04/2024 Orders Only [facility] [address] [place], [place] [phone] [facility] ProviderMD from Last 3 Months Social [...] file Medical Devices Not on file Insurance [facility] MEDICARE REPLACEMENT CARE MEDICARE REPLACEMENT MEDICARE REPLACEMENT CARE MEDICARE [place] [address] [place] [address] CARE MEDICARE REPLACEMENT [facility] CARE MEDICARE REPLACEMENT Care Teams Ship Rigger Relationship Specialty Start Date End Date Genevieve Gtz MD [address] [place] [address] PCP - General Internal Medicine 11/06/24 Additional Source Comments The information contained in this document represents components of the legal health record. It is not the complete legal health record.[facility]
--- OUTSIDE RECORDS SUMMARY | 2025-02-01 21:34 | XMS_ITS | Clinical Summary ---
Author Organization [facility] Address [address] [place] [address] Care Team Providers Care Online Marketing Strategist Name Role Phone Unavailable Primary Care Provider [...] 0.79 S/CO ratio 01/10/2022 10:39 AM EST [facility] Hepatitis C Antibody Interpretation Nonreactive Nonreactive 01/10/2022 10:39 AM EST [facility] Blood specimen (specimen) (Plasma/Serum) 01/09/2022 8:34 AM EST 01/09/2022 9:21 AM EST us Jaziel B Post MD LAB BLOOD ORDERABLES Final Resu lt HOSPITAL LAB [facility] [address] [place] [address] * HIV 1/2 Ag/Ab CMIA Reflex to Confirmation (01/09/2022 8:34 AM EST) HIV 1/2 Ag/Ab CMIA Nonreactive Nonreactive 01/10/2022 10:39 AM EST [facility] Comment: Results show no evidence of infection [...] BLOOD ORDERABLES Final Resu lt HOSPITAL LAB [facility] [address] [place] [address] from Last 3 Months or Most Recently Relevant to Health Maintenance Insurance [facility] Member Subscriber Plan / Payer ( fective 2022-Present) Name:Shereen Taylor Relation to Subscriber:Self Name:Shereen Taylor Payer ID:Not on file Group ID:Not on file Type:Not on file Address: [address] [id number] MISC MGD MEDICARE OUT OF NETWORK Advance Directives * Full Code (Latest Code Status on File) Date Activated Date Inactivated Comments 01/06/2022 5:00 AM Question Answer Comments Decision Thoroughly Discussed with: Unable to Ilda musa
--- OUTSIDE RECORDS SUMMARY | 2025-02-01 21:34 | XMS_ITS | Encounter Summary ---
Author Organization [employer] Address [address] [facility] 7t [place] [address] Care Team Providers Care Bench Molder Apprentice Name Role Phone Genevieve Gtz MD Primary Care Pro vider Reason for Visit * Reason Onset Date Comments Med Refill 12/19/2023 Encounter Details Date Type Department Care Team ([facility] Contact Info) Description 12/19/2023 Telephone [facility] MEDICINE [address] [place] [address] Genevieve Gtz MD [address] [place], [place] [phone] Med Refill Social History Tobacco Use Types [...] release tablet To be sent to: [facility] [address] [place] [address] - [address] [place] [address] documented in this encounter Plan of Treatment Upcoming Encounters Date Type Department Care Team (Late st Contact Info) Description 02/05/2025 10:45 AM EST Office Visit [facility] MEDICINE [address] [place] [address] Sarah Peres MD [address] [place] [address] 02/11/2025 2:45 PM EST Clinical Support [facility] CHC MED & PEDS [address] [place] [address] Paola Thurston, KIRIT [address] [place] [address] documented as of this encounter Goals Goal [...] documented as of this encounter Care Teams Bench Molder Apprentice Relationship Specialty Start Date End Date Genevieve Gtz MD [address] [place] [address] PCP - General Internal Medicine 10/12/22 documented as of this encounter
--- OUTSIDE RECORDS SUMMARY | 2025-02-01 21:34 | XMS_ITS | Encounter Summary ---
Author Organization [facility] Prior to 12/28/[address] [place] [address] Care Team Providers Care Fruit Tester Name Role Phone Ed Nash MD Primary Care Provider Un available Community, Pcp Primary Care Provider Unavailabl e Community, Pcp Primary Care Provider Unavailabl e Chanda Nugent Primary Care Provider Unavailabl e Reason for Visit * Reason Onset Date Comments Provider Call Back 04/27/2016 Encounter Details Date Type Department Care Team Description 04/27/2016 Telephone Adult Medicine [address] [address] Ed Nash MD Provider Call Back Social [...] libia disabled placcard. * Telephone Encounter - Ebonie Bird - 04/27/2016 10:30 AM EST Caller requesting [...] on filedocumented in this encounter Care Teams Fruit Tester Relationship Specialty Start Date End Date Ed Nash MD PCP - General Internal Medicine 11/11/15 Community, Pcp PCP - General Internal Medicine 07/27/16 08/21/17 Community, Pcp PCP - General Internal Medicine 08/22/17 01/09/18 Chanda Nugent PCP - General Internal Medicine 01/10/18 documented as of this encounter
--- OUTSIDE RECORDS SUMMARY | 2025-02-01 21:34 | XMS_ITS | Encounter Summary ---
Author Organization [employer] Address [address] [facility] 7t [place] [address] Care Team Providers Care Industrial Engineering Manager Name Role Phone Genevieve Gtz MD Primary Care Pro vider Reason for Visit * Reason Onset Date Comments Medication Question 11/11/2024 Encounter Details Date Type Department Care Team ([facility] Contact Info) Description 11/11/2024 Telephone [facility] MEDICINE [address] [place], [place] [phone] Genevieve Gtz MD [address] [place], [place] [phone] Medication Question Social History Tobacco Use Types [...] MG immediate release tablet Contact pt at [phone] documented in this encounter Plan of Treatment Upcoming Encounters Date Type Department Care Team (Late st Contact Info) Description 02/05/2025 10:45 AM EST Office Visit [facility] MEDICINE [address] [place] [address] Sarah Peres MD [address] [place] [address] 02/11/2025 2:45 PM EST Clinical Support [facility] CHC MED & PEDS [address] [place] [address] Paola Thurston, KIRIT [address] [place] [address] documented as of this encounter Goals Goal [...] documented as of this encounter Care Teams Industrial Engineering Manager Relationship Specialty Start Date End Date Genevieve Gtz MD [address] [place] [address] PCP - General Internal Medicine 10/12/22 documented as of this encounter
--- OUTSIDE RECORDS SUMMARY | 2025-02-01 21:34 | XMS_ITS | Encounter Summary ---
Author Organization [employer] Address [address] [facility] 7t [place] [address] Care Team Providers Care Funeral Home Associate Name Role Phone Genevieve Gtz MD Primary Care Pro vider Reason for Visit * Reason Onset Date Comments Med Refill 12/05/2023 Encounter Details Date Type Department Care Team ([facility] Contact Info) Description 12/05/2023 Telephone [facility] MEDICINE [address] [place] [address] Genevieve Gtz MD [address] [place], [place] [phone] Med Refill Social History Tobacco Use Types [...] immediate release tablet To be sent to: [facility]/pharmacy #[address] [place] [address] - [address] [place] [address] documented in this encounter Plan of Treatment Upcoming Encounters Date Type Department Care Team (Late st Contact Info) Description 02/05/2025 10:45 AM EST Office Visit [facility] MEDICINE [address] [place] [address] Sarah Peres MD [address] [place] [address] 02/11/2025 2:45 PM EST Clinical Support [facility] CHC MED & PEDS [address] [place] [address] Paola Thurston, KIRIT [address] [place] [address] documented as of this encounter Goals Goal [...] as of this encounter Care Teams Funeral Home Associate Relationship Specialty Start Date End Date Genevieve Gtz MD [address] [place] [address] PCP - General Internal Medicine 10/12/22 documented as of this encounter
--- OUTSIDE RECORDS SUMMARY | 2025-02-01 21:34 | XMS_ITS | Encounter Summary ---
Author Organization [employer] [facility] Prior to 12/28/[address] [place] [address] Care Team Providers Care Electrician Technician Name Role Phone Chanda Nugent Primary Care Provider Unavailabl e Reason for Visit * Reason Onset Date Comments [facility] Call 05/16/2018 Encounter Details Date Type Department Care Team Description 05/16/2018 Telephone Internal Medicine - [address], [address] [place] [address] Erna Nunez MD [facility] Call Social History Tobacco Use Types Packs/Day Years Used Date Smoking Tobacco: Former Smokeless Tobacco: Never Alcohol Use Standard Drinks/Week Comments No 0 (1 standard drink = 0.6 oz pur e alcohol) Sex Assigned at Date Recorded Not on file documented as of this encounter Miscellaneous Notes * Telephone Encounter - Juliette Mcguire - 05/16/2018 11:02 AM EDT Per Mary patient to remain on antibiotics until weekly Until 05/29/18 and will require bloodwork Form in folder for signature and date documented in this encounter Plan of Treatment Not on file documented as of this encounter Visit Diagnoses Not on filedocumented in this encounter Care Teams Electrician Technician Relationship Specialty Start Date End Date Chanda Nugent PCP - General Internal Medicine 01/10/18 documented as of this encounter
--- NOTE | 2025-02-01 22:01 | PC.NURSE ---
pt declined to change into hospital attire,
[2025-02-02] VITALS (9 sets, daily range): BP systolic 153–186; BP diastolic 65–94; PULSE 79–87; RESP 12–18; TEMP 36.6; O2SAT 97–99; BMI 31.0
--- NOTE | 2025-02-02 00:13 | ED_ITS ---
HPI - Fall General Chief Complaint: Fall Stated Complaint: BKA wound Time Seen by Provider: 02/02/25 00:10 Source: patient and EMS Mode of arrival: EMS Limitations: no limitations History of Present Illness ED Provider: Damon SIGALA HPI Narrative: The patient is a 34-year-old female with extensive comorbidities including type 2 diabetes with diabetic nephropathy with end-stage renal disease currently on hemodialysis Sunday, , and Sunday, multiple sclerosis, seizures, encephalopathy, and a recent left BKA by Dr. Rajput on January 05 of this year secondary to chronic osteomyelitis. The patient was also recently re- admitted to this facility for a distal femoral abscess, and while inpatient suffered a seizure requiring ICU admission. The patient was discharged 3 days ago, today patient presents for evaluation after she fell while transferring from bed to a transfer chair. She landed on her bottom, both legs (including the amputated limb), and reports striking her dialysis port on the transfer chair. The the patient reports the fall cause the BKA incision to open, patient reports the wound bled significantly however bleeding was able to be controlled by EMS. She reports the BKA site is throbbing. Patient reports the Port site is tender with palpation but no pain at baseline and no associated bleeding. Related Data Home Medications ?Medication ?Instructions ?Recorded ?Confirmed albuterol sulfate 90 mcg/actuation 2 puff inhalation Q 6H PRN wheezing 01/15/24 02/02/25 aerosol inhaler (Ventolin HFA) nitroglycerin 0.4 mg sublingual 0.4 mg sublingual D IRECTED PRN 01/15/24 02/02/25 tablet Angina calcium carbonate (Tums) 200 mg PO TIDWM PRN Acid Ref lux 07/03/24 02/02/25 levetiracetam 500 mg tablet 1,500 mg PO BID 02/02/25 1 04/05/24 (Keppra) lidocaine 4 % topical patch 1 patch topical DAILY PRN Pain 02/02/25 02/02/25 Previous Rx's ?Medication ?Instructions ?Recorded carvedilol 12.5 mg tablet 12.5 mg PO BID 90 days #180 tabs 12/16/23 hydralazine 50 mg tablet 50 mg PO TID 90 days #270 ta bs 12/16/23 blood sugar diagnostic (FreeStyle #100 ea 08/26/24 Lite Strips) blood-glucose meter (FreeStyle #1 ea 08/26/24 Lite Meter kit) lancets 28 gauge (FreeStyle #100 ea 08/26/24 Lancets) pen needle, diabetic 32 gauge x #100 ea 08/26/24 1/4 metoclopramide HCl 10 mg tablet 10 mg PO Q6H PRN nause a and 12/19/24 (Reglan) vomiting #14 tabs acetaminophen 325 mg tablet 975 mg (3 x 325 mg) PO Q4H PRN 01/08/25 mild pain 30 days #90 tabs amlodipine 2.5 mg tablet 7.5 mg PO BEDTIME #90 tabs 1 04/02/24 apixaban 2.5 mg tablet (Eliquis) 2.5 mg PO BID #180 ta bs 01/30/25 bisacodyl 5 mg tablet,delayed 10 mg (2 x 5 mg) PO BEDT CORTEZ PRN 01/31/25 release Constipation #90 tabs commode #1 ea 01/31/25 dextrose 40 % oral gel (Glucose 15 g PO Q15M PRN For b lood sugar 01/31/25 Gel) less than 70 #300 grams docusate sodium 100 mg capsule 100 mg PO BID #180 caps 01/31/25 (Colace) insulin lispro 100 unit/mL 1 sliding scale dose subcut 01/31/25 subcutaneous pen (Admelog SoloStar USEASDIRECTD #15 mL U-100 Insulin lispro) oxycodone 10 mg tablet 10 mg PO Q8H PRN pain 5 days #24 01/31/25 tabs oxycodone 10 mg tablet,crush 10 mg PO BID 10 days #20 tabs 01/31/25 resistant,extended release 12 hr (OxyContin) valproic acid 250 mg capsule 500 mg (2 x 250 mg) PO TI D #270 01/31/25 caps Allergies Allergy/AdvReac Type Severity Reaction Status Date / Time gabapentin Allergy Severe Facial Verified 02/01/25 21:20 Swelling tramadol Allergy Severe Facial Verified 02/01/25 21:20 Swelling azithromycin (From Zithromax) Allergy Intermediate Hives Verified 02/01/25 21:20 morphine (MORPHINE) Allergy Intermediate Itching Verified 02/01/25 21:20 vancomycin AdvReac Intermediate Itching Verified 02/01/25 21:20 Review of Systems 2 Review of Systems: Yes all other systems are reviewed and are negative [facility] Past Medical History Medical History Central pontine myelinolysis ESRD on hemodialysis End-stage renal disease (ESRD) Cardiomyopathy Cerebral microvascular disease Steroid-induced hyperglycemia Relapsing remitting multiple sclerosis Renal failure Multiple sclerosis Cerebral infarction Hyperkalemia ESRD on dialysis Hypoxia End stage renal disease on dialysis Chronic ulcer of right foot due to diabetes mellitus Chronic ulcer of left foot due to diabetes mellitus DM foot ulcer Hypotonic neurogenic bladder Diabetic polyneuropathy Hypertensive emergency Decompensated heart failure Renal failure Hypertension, uncontrolled Medical non-compliance Pericarditis Unspecified hypertension, condition or complication Metabolic acidosis Gastroparesis End stage chronic kidney disease Chronic kidney disease Anemia Plantar ulcer of left foot MDD (major depressive disorder) CKD (chronic kidney disease) Hypertension Vomiting Chronic pain Non-compliance with renal dialysis Diabetic foot ulcer associated with type 2 diabetes mellitus HFrEF (heart failure with reduced ejection fraction) delivery delivered Anemia in chronic kidney disease (CKD) CKD (chronic kidney disease) Abnormal finding on echocardiogram Elevated troponin Acute worsening of stage 3 chronic kidney disease Generalized edema Sepsis Cellulitis Pleural effusion Atypical chest pain Bone infection PAD (peripheral artery disease) Cellulitis and abscess of foot Osteomyelitis Asthma Depression with anxiety Diabetic retinopathy Blind right eye Diabetes Back pain Surgical History Below-knee amputation of left lower extremity (~01/05/25) Tubal ligation status Previous section Hx laparoscopic cholecystectomy Hx of surgical procedure (~09/11/23) 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 Family History Family History Mother Coronary artery disease Myocardial infarction Stroke Diabetes mellitus Father Myocardial infarction Social History Social History Household Members: Family Household Members Other:: sister, brother, [id number] Housing: Apartment Housing Other:: Apartment, 1st floor Are you a primary healthcare applications analyst to a significant other at home: No Do you presently have visiting nurse or other home services: No Alcohol intake: never Comment: patient refusing bed alarm Patient Tobacco Use Status: Never used Tobacco e-Cigarette/Vaping Use: Never Used Second Hand Smoke Exposure: No Advance Directives Date on File: 08/28/23 service: No Current occupational status: unemployed and disabled Gender identity: Female Physical Exam 2 Vital Signs: Vital Signs: Last Vital Signs Temp 97.8 F 02/02/25 02:23 Pulse 81 02/02/25 11:46 Resp 12 02/02/25 05:17 BP 179/81 H 02/02/25 11:46 Pulse Ox 99 02/02/25 05:17 O2 Del Method Room Air 02/02/25 05:17 BMI result Body Mass Index 31.0 CONSTITUTIONAL: The patient appears chronically ill, otherwise non-toxic, well nourished and in no acute distress. Vital signs as documented. HEAD: Atraumatic, normocephalic. EYES: EOMs grossly intact, pupils equal, conjunctiva clear, no exudate. ENT: Nares patent, no discharge. Airway patent, no audible stridor, visible mucosa is pink and moist without noted lesions. NECK: Trachea is midline, no obvious masses or gross abnormalities. CHEST: Symmetric movement, normal appearance. Port in place, no surrounding erythema, induration, or drainage. LUNGS: LS present and CTAB, no w/r/r. Non-labored work of breathing. CARDIAC: Regular Rhythm, S1/S2 appreciated, no murmurs, rubs or gallops. ABDOMEN: Abdomen soft and non-tender x4 quadrants, no palpable masses or organomegaly. : Deferred. EXTREMITIES: Left BKA incision shows dehiscence of the anterior portion, approximately 4 cm in length, no purulent discharge or active bleeding. No surrounding erythema, induration, or fluctuance. Normal tone, moves all other extremities spontaneously without reported pain. No other obvious acute injury or deformity noted. NEURO: Alert and oriented x3, CN II-XII appear grossly intact. Cerebellar Functioning grossly intact. No obvious sensory or motor deficits. Speech clear and appropriate. PSYCH: normal affect, appropriate eye contact, fluid speech, with appropriate response to questioning. No reported suicidality or homicidality. SKIN: Warm, dry, color appropriate, normal turgor. No rashes noted. Course Course Course Narrative: 11:52 AM 02/02/2025 (Dee Dee Sánchez DO): Informed by Jay BETH that patient would like to leave AMA she is admitted to the hospitalist service. Spoken to Dr. Rajput who is requesting that we assist with sutures removal. 0 simple interrupted sutures removed. Medications Administered Generic Name Dose Route Start Last Admin Trade Name Freq PRN Reason Stop Dose Admin Amlodipine Besylate 7.5 mg 02/02/25 09:50 02/02/25 11:43 Amlodipine Besylate 2.5 Mg Tablet PO 7.5 mg BEDTIME VASILE Administration Protocol Apixaban 2.5 mg 02/02/25 09:50 02/02/25 11:44 Apixaban 2.5 Mg Tablet PO 2.5 mg BID VASILE Administration Carvedilol 12.5 mg 02/02/25 09:55 02/02/25 11:46 Carvedilol 12.5 Mg Tablet PO 12.5 mg BID VASILE Administration Protocol Docusate Sodium 100 mg 02/02/25 09:50 02/02/25 11:45 Docusate Sodium 100 Mg Capsule PO 100 mg BID VASILE Administration Hydralazine HCl 50 mg 02/02/25 09:55 02/02/25 11:45 Hydralazine Hcl 50 Mg Tablet PO 50 mg TID VASILE Administration Protocol Hydromorphone HCl 1 mg 02/02/25 05:06 02/02/25 05:29 Hydromorphone Hcl 1 Mg/Ml Syringe IVPUSH 1 mg Q3H PRN Administration Pain, Severe (Pain Scale 7-10) Protocol Insulin Human Lispro 0 unit 02/02/25 06:00 02/02/25 06:10 Insulin Lispro 100 Unit/Ml 3 Ml Vial SUBCUT 6 unit Q6H VASILE Administration Protocol Levetiracetam 1,500 mg 02/02/25 10:00 02/02/25 11:45 Levetiracetam 500 Mg Tablet PO 1,500 mg BID VASILE Administration Ondansetron HCl 4 mg 02/02/25 04:24 02/02/25 05:29 Ondansetron Hcl 4 Mg/2 Ml Vial IVPUSH 4 mg Q8H PRN Administration Nausea and Vomiting Oxycodone HCl 10 mg 02/02/25 10:00 02/02/25 11:50 Oxycodone Hcl Er 10 Mg Tab.Er.12h PO 10 mg BID VASILE Administration Valproic Acid 500 mg 02/02/25 09:55 02/02/25 11:44 Valproic Acid 250 Mg Capsule PO 500 mg TID VASILE Administration Discontinued Medications Generic Name Dose Route Start Last Admin Trade Name Brandon PRN Reason Stop Dose Admin Albuterol Sulfate 2.5 mg 02/02/25 02:01 02/02/25 02:40 Albuterol Sulfate (0.083%) 2.5 Mg/3 Ml Vial.Neb INHALE 02/02/25 02:02 2.5 mg ONCE ONE Administration Sodium Chloride 1,000 mls @ 999 mls/hr 02/02/25 02:00 02/02/25 03:22 Ns IV 02/02/25 03:00 Infused .Q1H1M VASILE Infusion Calcium Gluconate 1 gm in 50 mls @ 200 mls/hr 02/02/25 02:01 02/02/25 02:37 Calcium Gluconate IV 02/02/25 02:15 Infused ONCE ONE Infusion Ceftriaxone Sodium 1 gm/ 50 mls @ 100 mls/hr 02/02/25 03:57 02/02/25 04:57 Sodium Chloride IV 02/02/25 04:26 Infused ONCE ONE Infusion Insulin Human Regular 10 unit 02/02/25 02:01 02/02/25 02:20 Insulin Regular, Human 100 Unit/Ml 10 Ml Vial IVPUSH 02/02/25 02:02 10 unit ONCE ONE Administration Polyethylene Glycol 17 gm 02/02/25 05:07 02/02/25 05:25 Polyethylene Glycol 3350 17 Gm Powd.Pack PO 02/02/25 05:08 Not Given ONCE ONE Procedures Procedure Narrative Procedure Narrative: Suture removal: Removed 9 simple interrupted stitches on left stump. Medical Decision Making Medical Decision Making [facility] Narrative: 12:40 AM 02/02/2025 (Mai SIGALA): The patient is a 34-year-old female with extensive comorbidities including type 2 diabetes with diabetic nephropathy with end-stage renal disease currently on hemodialysis Sunday, , and Sunday, multiple sclerosis, seizures, encephalopathy, and a recent left BKA by Dr. Rajput on January 05 of this year secondary to chronic osteomyelitis. The patient was also recently re-admitted to this facility for a distal femoral abscess, and while inpatient suffered a seizure requiring ICU admission. The patient was discharged 3 days ago, today patient presents for evaluation after she fell while transferring from bed to a transfer chair. She landed on her bottom, both legs (including the amputated limb), and reports striking her dialysis port on the transfer chair. The the patient reports the fall cause the BKA incision to open, patient reports the wound bled significantly however bleeding was able to be controlled by EMS. She reports the BKA site is throbbing. Patient reports the Port site is tender with palpation but no pain at baseline and no associated bleeding. On exam the patient is noted to have dehiscence of the anterior portion of the BKA incision with no active bleeding. There was no associated induration, purulent drainage, erythema, or evidence of active infection. Patient's port site is well-appearing, no surrounding induration or discharge. No active bleeding. The patient reports she was initially discharged with physical therapy and VNA after the surgery however upon discharge from the hospital 3 days ago she reports she was discharged with no in-home services. Of note the patient also reports she feels she was discharged home too early as her sister reported she was experiencing persistent confusion and weakness. Patient's sister advocated for VNA services and expressed concern about confusion and weakness at discharge, and requested that VNA services be reinstated, but per the patient's report was told the patient doesn't need it. The patient reports her sister is currently the only available support at home; other household members are unavailable during the day. Per chart review the patient was discharged with recommendation for VNA services. At this time due to patient's confusion regarding current level of in-home services, we will obtain basic laboratory evaluation to rule out infectious process versus encephalopathic process, if no evidence of acute pathology the patient will likely require overnight observation and case management/PT consultation in the morning to confirm patient will have availability of in-home services to avoid being discharged to unsafe home situation. 3:59 AM 02/02/2025 (Mai SIGALA): The patient's laboratory evaluation has resulted and unfortunately showed multiple abnormalities. Patient was hyperkalemic at 5.7, EKG shows right bundle-branch block, no significant T-wave peaking, however due to dialysis status patient was ordered for calcium gluconate, insulin, and albuterol. Patient also had significant hyperglycemia with hyponatremia however hyponatremia was normal when corrected for hyperglycemia. The patient also had a leukocytosis of 16.2. Given the hyperglycemia and leukocytosis which was new compared to previous, the patient was ordered for urinalysis by straight catheterization. The patient's urinalysis shows 1+ leukocyte esterase with 11-20 WBCs and 4+ bacteria. Due to the patient's recent hospitalization we will treat for suspected UTI with Rocephin and admit for UTI with fall and hyperkalemia. Of note the patient's lactic acid is 1.8, there was no hypotension, tachycardia, or tachypnea. The patient's creatinine is consistent with patient's baseline and her history of ESRD, not acute organ dysfunction secondary to sepsis. 30 cc/kilos fluid bolus is contraindicated as the patient does not meet sepsis criteria and is high-risk for iatrogenic pulmonary edema due to her hemodialysis dependence. The patient will be admitted for UTI with weakness and fall, as well as hyperkalemia with ESRD. Admission/Observation Consideration of admission/observation: Escalation of care including admission/observation considered Lab Data 02/02/25 05:40 02/02/25 05:40 Labs: Lab Results 02/02/25 02/02/25 02/02/25 Range/Units 00:57 00:58 02:08 WBC 16.2 H (4.8-10.8) X10*3/uL RBC 3.80 L (4.20-5.50) X10*6/uL Hgb 11.5 L (12.0-16.0) g/dl Hct 34.5 L (37.0-47.0) % MCV 90.8 (80.0-98.0) fL MCH 30.3 (27.0-33.0) pg MCHC 33.3 (31.0-35.0) g/dl RDW 15.8 (11.0-16.0) % Plt Count 156 L (160-400) X10*3/uL MPV 12.6 H (9.4-12.3) fL Immature Gran % (Auto) 1.2 H (0.0-0.4) % Neut % (Auto) 94.0 H (45-73) % Lymph % (Auto) 1.5 L (20-40) % [place] % (Auto) 3.2 (2-11) % Eos % (Auto) 0.0 (0-4) % Baso % (Auto) 0.1 (0-2) % Lymph # (Auto) 0.2 L (1.2-4.9) X10*3/uL [place] # (Auto) 0.5 (0.1-1.2) X10*3/uL Eos # (Auto) 0.0 (0.0-0.4) X10*3/uL Baso # (Auto) 0.0 (0.0-0.2) X10*3/uL Abs Immat Gran (auto) 0.20 H (0.00-0.03) X10*3/uL Absolute Neuts (auto) 15.2 H (2.0-8.3) x10*3/uL Absolute Nucleated RBC 0.000 (0.0-0.012) X10*3/uL Nucleated RBC % (auto) 0.0 (0.0-0.2) /100WBC Smear Tech's Comments VERIFIED VBG pH (7.32-7.43) VBG pCO2 mmHg VBG pO2 mmHg VBG HCO3 (22-26) mmol/L VBG O2 Saturation % VBG Base Excess mmol/L Sodium 127 L (135-145) mmol/L Potassium 5.7 H D (3.3-5.1) mmol/L Chloride 93 L (96-108) mmol/L Carbon Dioxide 18 L (22-29) mmol/L Anion Gap 22 H (12-20) BUN 96 H (9-16) mg/dL Creatinine 7.65 H* (0.5-1.4) mg/dL Estim Creat Clear Calc 11.3 Estimated GFR 6 POC Glucose (60-115) mg/dL Random Glucose 558 H* (60-115) mg/dL Lactic Acid 1.8 (0.5-2.0) mmol/L Calcium 7.2 L (8.4-10.2) mg/dL Magnesium 2.5 (1.6-2.6) mg/dL Total Bilirubin 0.6 (0.0-1.0) mg/dL AST 11 (5-31) U/L ALT 9 (0-31) U/L Alkaline Phosphatase 134 H (39-117) U/L Ammonia 24 (13-55) umol/L Total Protein 6.4 L (6.5-8.0) g/dL Albumin 3.7 (3.5-5.0) g/dL Beta-Hydroxybutyrate 0.06 (0.02-0.27) mmol/L Urine Color Urine Appearance Urine pH (5.0-9.0) Ur Specific [place] (1.005-1.025) Urine Protein (Neg-Trace) mg/dL Urine Glucose (UA) (Negative) mg/dL Urine Ketones (Negative) mg/dL Urine Blood (Negative) Urine Nitrite (Negative) Ur Leukocyte Esterase (Negative) Urine RBC (0-2) /HPF Urine WBC (0-5) /HPF Ur Squamous Epith Cells (0-2) /HPF Urine Bacteria (None Seen) Hyaline Casts (0-2) /LPF Urine Opiates Screen (Not Detect) Ur Buprenorphine Scrn (Not Detect) ng/mL Ur Oxycodone Screen (Not Detect) ng/mL Urine Methadone Screen (Not Detect) ng/mL Urine Fentanyl Screen (Not Detect) Ur Barbiturates Screen (Not Detect) Ur Phencyclidine Scrn (Not Detect) Ur Amphetamines Screen (Not Detect) U Benzodiazepines Scrn (Not Detect) Urine Cocaine Screen (Not Detect) U Marijuana (THC) Screen (Not Detect) 02/02/25 02/02/25 02/02/25 Range/Units 02:15 02:37 03:31 WBC (4.8-10.8) X10*3/uL RBC (4.20-5.50) X10*6/uL Hgb (12.0-16.0) g/dl Hct (37.0-47.0) % MCV (80.0-98.0) fL MCH (27.0-33.0) pg MCHC (31.0-35.0) g/dl RDW (11.0-16.0) % Plt Count (160-400) X10*3/uL MPV (9.4-12.3) fL Immature Gran % (Auto) (0.0-0.4) % Neut % (Auto) (45-73) % Lymph % (Auto) (20-40) % [place] % (Auto) (2-11) % Eos % (Auto) (0-4) % Baso % (Auto) (0-2) % Lymph # (Auto) (1.2-4.9) X10*3/uL [place] # (Auto) (0.1-1.2) X10*3/uL Eos # (Auto) (0.0-0.4) X10*3/uL Baso # (Auto) (0.0-0.2) X10*3/uL Abs Immat Gran (auto) (0.00-0.03) X10*3/uL Absolute Neuts (auto) (2.0-8.3) x10*3/uL Absolute Nucleated RBC (0.0-0.012) X10*3/uL Nucleated RBC % (auto) (0.0-0.2) /100WBC Smear Tech's Comments VBG pH 7.37 (7.32-7.43) VBG pCO2 34 mmHg VBG pO2 91 mmHg VBG HCO3 20 L (22-26) mmol/L VBG O2 Saturation 97.0 % VBG Base Excess -4.2 mmol/L Sodium (135-145) mmol/L Potassium (3.3-5.1) mmol/L Chloride (96-108) mmol/L Carbon Dioxide (22-29) mmol/L Anion Gap (12-20) BUN (9-16) mg/dL Creatinine (0.5-1.4) mg/dL Estim Creat Clear Calc Estimated GFR POC Glucose 324 H (60-115) mg/dL Random Glucose (60-115) mg/dL Lactic Acid (0.5-2.0) mmol/L Calcium (8.4-10.2) mg/dL Magnesium (1.6-2.6) mg/dL Total Bilirubin (0.0-1.0) mg/dL AST (5-31) U/L ALT (0-31) U/L Alkaline Phosphatase (39-117) U/L Ammonia (13-55) umol/L Total Protein (6.5-8.0) g/dL Albumin (3.5-5.0) g/dL Beta-Hydroxybutyrate (0.02-0.27) mmol/L Urine Color Yellow Urine Appearance Cloudy Urine pH 7.0 (5.0-9.0) Ur Specific [place] 1.020 (1.005-1.025) Urine Protein 300 (3+) H (Neg-Trace) mg/dL Urine Glucose (UA) 500 H (Negative) mg/dL Urine Ketones Negative (Negative) mg/dL Urine Blood Negative (Negative) Urine Nitrite Negative (Negative) Ur Leukocyte Esterase Small (1+) H (Negative) Urine RBC 0-2 (0-2) /HPF Urine WBC 11-20 H (0-5) /HPF Ur Squamous Epith Cells 11-20 (0-2) /HPF Urine Bacteria 4+ (None Seen) Hyaline Casts 3-5 (0-2) /LPF Urine Opiates Screen Not Detected (Not Detect) Ur Buprenorphine Scrn Not Detected (Not Detect) ng/mL Ur Oxycodone Screen Positive H (Not Detect) ng/mL Urine Methadone Screen Not Detected (Not Detect) ng/mL Urine Fentanyl Screen Not Detected (Not Detect) Ur Barbiturates Screen Not Detected (Not Detect) Ur Phencyclidine Scrn Not Detected (Not Detect) Ur Amphetamines Screen Not Detected (Not Detect) U Benzodiazepines Scrn Not Detected (Not Detect) Urine Cocaine Screen Not Detected (Not Detect) U Marijuana (THC) Screen Not Detected (Not Detect) External Record Review External record reviewed: Inpatient record, Outpatient record and Prior outpatient labs Discharge Plan Discharge Clinical Impression: Acute hyperkalemia, End-stage renal disease (ESRD) UTI (urinary tract infection) Qualifiers: Urinary tract infection type: acute cystitis Hematuria presence: without hematuria Qualified Code(s): N30.00 - Acute cystitis without hematuria Fall Qualifiers: Encounter type: initial encounter Qualified Code(s): W19.XXXA - Unspecified fall, initial encounter Patient Disposition: Admitted As Inpatient
[2025-02-02 01:04] LABS: Hematocrit 34.5 % (37.0-47.0); Hemoglobin 11.5 g/dl (12.0-16.0); Imm Gran Abs Auto 0.20 X10*3/uL (0.00-0.03); Imm Gran Pct Auto 1.2 % (0.0-0.4); Lymphocytes Absolute Auto 0.2 X10*3/uL (1.2-4.9); MANUAL DIFF FLAG SCAN; Mean Corpuscular HGB Conc 33.3 g/dl (31.0-35.0); Mean Corpuscular Hemoglobin 30.3 pg (27.0-33.0); Mean Corpuscular Volume 90.8 fL (80.0-98.0); NRBC Abs Auto 0.000 X10*3/uL (0.0-0.012); NRBC Pct Auto 0.0 /100WBC (0.0-0.2); Platelet Count 156 X10*3/uL (160-400); Red Blood Count 3.80 X10*6/uL (4.20-5.50); SCAN SMEAR FLAG 1; White Blood Count 16.2 X10*3/uL (4.8-10.8)
[2025-02-02 01:12] LABS: Ammonia 24 umol/L (13-55)
[2025-02-02 01:54] LABS: Alanine Aminotransferase 9 U/L (0-31); Albumin Level 3.7 g/dL (3.5-5.0); Alkaline Phosphatase 134 U/L (39-117); Anion Gap 22 (12-20); Aspartate Amino Transferase 11 U/L (5-31); Blood Urea Nitrogen 96 mg/dL (9-16); Calcium 7.2 mg/dL (8.4-10.2); Carbon Dioxide 18 mmol/L (22-29); Chloride 93 mmol/L (96-108); Creatinine Clr Calc Pharmacy 11.3; Estimated Glomerular Filt Rate 6; Magnesium 2.5 mg/dL (1.6-2.6); Potassium 5.7 mmol/L (3.3-5.1); Sodium 127 mmol/L (135-145); Total Protein 6.4 g/dL (6.5-8.0)
--- NOTE | 2025-02-02 01:57 | ECG_ITS ---
Test Reason : HYPERKALEMIA Blood Pressure : */* mmHG Vent. Rate : 85 BPM Atrial Rate : 85 BPM P-R Int : 176 ms QRS Dur : 154 ms QT Int : 424 ms P-R-T Axes : 60 -29 77 degrees QTcB Int : 504 ms Normal sinus rhythm Possible Left atrial enlargement Right bundle branch block T wave abnormality, consider lateral ischemia Abnormal ECG When compared with ECG of 25-Jan-2025 08:25, Nonspecific T wave abnormality no longer evident in Inferior leads T wave inversion now evident in Anterolateral leads QT has shortened Referred By: Damon Monroy Electronically Signed By: HATTIE BAÑUELOS MD
[2025-02-02] MEDS: Calcium Gluconate/NaCl,Iso-Osm 1 GM/50 ML PLAST..BAG IV (02:17)
[2025-02-02 02:21] LABS: VBG HCO3 20 mmol/L (22-26); VBG O2 % Saturation 97.0 %
[2025-02-02 02:21] LABS: Venous Blood Gas Refer to POC result
[2025-02-02] MEDS: Albuterol Sulfate (0.083%) 2.5 MG/3 ML VIAL.NEB INHALE (02:40)
[2025-02-02 02:43] LABS: Appearance Urine Cloudy; Glucose Urine UA 500 mg/dL (Negative); PH 7.0 (5.0-9.0); Specific Gravity - Urine 1.020 (1.005-1.025); UMIC TRIGGER UACC YES
[2025-02-02 03:10] LABS: UACC Culture Trigger YES
[2025-02-02 03:36] LABS: Glucose, Whole Blood 324 mg/dL (60-115)
--- NOTE | 2025-02-02 04:00 | PC.NURSE ---
Verified with JOVON Jose no blood cultures indicated.
--- NOTE | 2025-02-02 04:28 | P.HPHOSP_ITS ---
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 Rajput), HTN, PAD, CDIFF, anxiety, depression, recent dx of PE, status epilecticus, MS, CVA, Sepsis/Bacteremia/ hx of central line infection presents to ED via ambulance after attempting to transfer self from bed to wheelchair (patient aware that she is not supposed to be transferring independently) approximately 2PM Sunday afternoon and fell to the floor and hit the bottom of her incision of her ohdil-jxp-mwje amputation in experienced profuse bleeding. Pt denies hit to the head or LOC. Patient's sister was immediately present and was able to transport patient to the shower but the bleeding persisted for some time. Patient is on Eliquis for recent diagnosis of PE. 911 was called and bleeding was controlled at the site with EMS. Steri-Strips were placed in the ED. Patient noted to be hypertensive. Patient was discharged from [facility] January 31 and received dialysis for 2 hours after discharge. Patient denies any current use of tobacco, nicotine via vaping, marijuana, alcohol or illicit drugs. Work up in the ED revealed possible UTI with a noted leukocytosis of 16.2, small Le, WBC 11-20, Bacteria 4+. Pt started on ceftriaxone in ED. H&H stable currently at 11.5 and 34.5. PLTs 156K. Glucose 558 mg/dL, AG 22, CO2 18 but no acidosis via VBG. Results were 7.37, 34, 91, 20. BG now 324 mg/dL. K 5.7. Na 127, was 132 on discharge 01/31/25. LA 1.8. Ammonia 24. Beta-Hydroxybutyrate 0.06. L BKA stmp intact but very painful and throbbing for pt. Bleeding remains controlled. No issues with hypoxia, chest pain, N/V. Pt reports ongoing constipation, straining and reports no BM in a month's time. Pt offers that she is stubborn and still believes she can do things for herself. Pt states that if her sister was not able to help her any longer, she would reside at [facility] if needed, [facility]. Pt has plans for fistula and to eventually start home dialysis in the near future. Pt states she will use call light and will not attempt to get OOB independently. Review of Systems 2 Review of Systems: Patient denies any current chest pain, shortness of breath at rest or with exertion, abdominal, nausea, vomit, diarrhea. Patient reports persistent constipation and straining. Patient states the area of the left jpchp-ujy-ykab amputation site is throbbing and painful. Patient denies any recent seizure activity since discharge on SundayJanuary 31. Patient reports completing a recent steroid therapy for MS flare. Yes all other systems are reviewed and are negative [facility] Medical History Central pontine myelinolysis ESRD on hemodialysis End-stage renal disease (ESRD) Cardiomyopathy Cerebral microvascular disease Steroid-induced hyperglycemia Relapsing remitting multiple sclerosis Renal failure Multiple sclerosis Cerebral infarction Hyperkalemia ESRD on dialysis Hypoxia End stage renal disease on dialysis Chronic ulcer of right foot due to diabetes mellitus Chronic ulcer of left foot due to diabetes mellitus DM foot ulcer Hypotonic neurogenic bladder Diabetic polyneuropathy Hypertensive emergency Decompensated heart failure Renal failure Hypertension, uncontrolled Medical non-compliance Pericarditis Unspecified hypertension, condition or complication Metabolic acidosis Gastroparesis End stage chronic kidney disease Chronic kidney disease Anemia Plantar ulcer of left foot MDD (major depressive disorder) CKD (chronic kidney disease) Hypertension Vomiting Chronic pain Non-compliance with renal dialysis Diabetic foot ulcer associated with type 2 diabetes mellitus HFrEF (heart failure with reduced ejection fraction) delivery delivered Anemia in chronic kidney disease (CKD) CKD (chronic kidney disease) Abnormal finding on echocardiogram Elevated troponin Acute worsening of stage 3 chronic kidney disease Generalized edema Sepsis Cellulitis Pleural effusion Atypical chest pain Bone infection PAD (peripheral artery disease) Cellulitis and abscess of foot Osteomyelitis Asthma Depression with anxiety Diabetic retinopathy Blind right eye Diabetes Back pain Cognitive capacity: Alert and orientated x3 Functional capacity: wheelchair bound Patient : No Family History Mother Coronary artery disease Myocardial infarction Stroke Diabetes mellitus Father Myocardial infarction Surgical History Below-knee amputation of left lower extremity (~01/05/25) Tubal ligation status Previous section Hx laparoscopic cholecystectomy Hx of surgical procedure (~09/11/23) 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 Social History Household Members: Family Household Members Other:: sister, brother, [id number] Housing: Apartment Housing Other:: Apartment, 1st floor Are you a primary hearing healthcare practitioner to a significant other at home: No Do you presently have visiting nurse or other home services: No Alcohol intake: never Comment: patient refusing bed alarm Patient Tobacco Use Status: Never used Tobacco e-Cigarette/Vaping Use: Never Used Second Hand Smoke Exposure: No Advance Directives Date on File: 08/28/23 service: No Current occupational status: unemployed and disabled Gender identity: Female Ebola Risk: Travel/Contact With Anyone From Affected Area/s: No Has Patient Experienced Ebola Symptoms: No Meds Allergies Allergy/AdvReac Type Severity Reaction Status Date / Time gabapentin Allergy Severe Facial Verified 02/01/25 21:20 Swelling tramadol Allergy Severe Facial Verified 02/01/25 21:20 Swelling azithromycin (From Zithromax) Allergy Intermediate Hives Verified 02/01/25 21:20 morphine (MORPHINE) Allergy Intermediate Itching Verified 02/01/25 21:20 vancomycin AdvReac Intermediate Itching Verified 02/01/25 21:20 Home Medications ?Medication ?Instructions ?Recorded ?Confirmed ?Last Taken ?Type albuterol sulfate 90 mcg/actuation 2 puff inhalation Q 6H PRN wheezing 01/15/24 01/22/25 12/09/24 History aerosol inhaler (Ventolin HFA) nitroglycerin 0.4 mg sublingual 0.4 mg sublingual D IRECTED PRN 01/15/24 01/22/25 12/09/24 History tablet Angina calcium carbonate (Tums) 200 mg PO TIDWM PRN Acid Ref lux 07/03/24 01/22/25 12/09/24 History Physical Exam 2 Vital Signs and Narrative: Vital Signs: Last Vital Signs Temp 97.8 F 02/02/25 02:23 Pulse 83 02/02/25 04:17 Resp 14 02/02/25 04:17 BP 172/79 H 02/02/25 04:17 Pulse Ox 97 02/02/25 04:17 O2 Del Method Room Air 02/02/25 04:17 BMI result Body Mass Index 31.0 Alert and orientated X3, able to give good history. Neuro: Unable to assess visual acuity otherwise cranial nerves intact EYES: Sclerae nonicteric, conjunctiva pink ENT: hearing intact, no issues with swallowing, uvula midline, lips moist, nares patent no epistaxis Cardiac: S1 S2 RRR, no murmur, no JVD, no edema in Lower ext Pulmonary: lungs diminished bilateral Abdominal: BS active in all 4 quadrants, no guarding, tenderness, rebounding, soft nondistended MSK: strength 4/5 upper and 3/5 R lower extremities : no CVA tenderness no bladder distension Extremities: no edema in lower extremities, PT and DP pulses palpable +2 L BKA site slightly swollen, discolored, mild bruising, no active bleeding Pt has unviewed chronic wound R foot. Psych: mood stable, judgement and insight fair Results Labs 02/02/25 00:57 02/02/25 00:58 Labs: Laboratory Results - last 24 hr 02/02/25 02/02/25 02/02/25 00:57 00:58 02:08 MCV 90.8 MCH 30.3 MCHC 33.3 RDW 15.8 Plt Count 156 L MPV 12.6 H Immature Gran % (Auto) 1.2 H Neut % (Auto) 94.0 H Lymph % (Auto) 1.5 L [place] % (Auto) 3.2 Eos % (Auto) 0.0 Baso % (Auto) 0.1 Lymph # (Auto) 0.2 L [place] # (Auto) 0.5 Eos # (Auto) 0.0 Baso # (Auto) 0.0 Abs Immat Gran (auto) 0.20 H Absolute Neuts (auto) 15.2 H Absolute Nucleated RBC 0.000 Nucleated RBC % (auto) 0.0 Smear Tech's Comments VERIFIED VBG pH VBG pCO2 VBG pO2 VBG HCO3 VBG O2 Saturation VBG Base Excess Anion Gap 22 H Estim Creat Clear Calc 11.3 Estimated GFR 6 POC Glucose Random Glucose 558 H* Lactic Acid 1.8 Calcium 7.2 L Magnesium 2.5 Total Bilirubin 0.6 AST 11 ALT 9 Alkaline Phosphatase 134 H Ammonia 24 Total Protein 6.4 L Albumin 3.7 Beta-Hydroxybutyrate 0.06 Urine Color Urine Appearance Urine pH Ur Specific [place] Urine Protein Urine Glucose (UA) Urine Ketones Urine Blood Urine Nitrite Ur Leukocyte Esterase Urine RBC Urine WBC Ur Squamous Epith Cells Urine Bacteria Hyaline Casts 02/02/25 02/02/25 02/02/25 02:15 02:37 03:31 MCV MCH MCHC RDW Plt Count MPV Immature Gran % (Auto) Neut % (Auto) Lymph % (Auto) [place] % (Auto) Eos % (Auto) Baso % (Auto) Lymph # (Auto) [place] # (Auto) Eos # (Auto) Baso # (Auto) Abs Immat Gran (auto) Absolute Neuts (auto) Absolute Nucleated RBC Nucleated RBC % (auto) Smear Tech's Comments VBG pH 7.37 VBG pCO2 34 VBG pO2 91 VBG HCO3 20 L VBG O2 Saturation 97.0 VBG Base Excess -4.2 Anion Gap Estim Creat Clear Calc Estimated GFR POC Glucose 324 H Random Glucose Lactic Acid Calcium Magnesium Total Bilirubin AST ALT Alkaline Phosphatase Ammonia Total Protein Albumin Beta-Hydroxybutyrate Urine Color Yellow Urine Appearance Cloudy Urine pH 7.0 Ur Specific [place] 1.020 Urine Protein 300 (3+) H Urine Glucose (UA) 500 H Urine Ketones Negative Urine Blood Negative Urine Nitrite Negative Ur Leukocyte Esterase Small (1+) H Urine RBC 0-2 Urine WBC 11-20 H Ur Squamous Epith Cells 11-20 Urine Bacteria 4+ Hyaline Casts 3-5 ECG Attestation: I personally reviewed and interpreted this ECG as follows: (Normal sinus, RBBB not new ) Prior ECG tracings: available for review Assessment and Plan (1) Fall: Qualifiers: Encounter type: initial encounter Qualified Code(s): W19.XXXA - Unspecified fall, initial encounter Status: Acute (2) Acute hyperkalemia: Status: Acute (3) UTI (urinary tract infection): Qualifiers: Hematuria presence: without hematuria Urinary tract infection type: a cute cystitis Qualified Code(s): N30.00 - Acute cystitis without hematuria Status: Acute (4) Status epilepticus: Status: Acute Plan Patient is a 34-year-old female, Tuvaluan speaking, with past medical history ESRD on dialysis T,TH and Sat with perm cath - nonoliguric, nonanuric, Anemia secondary to ESRD, 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 Rajput), HTN, PAD, CDIFF, anxiety, depression, recent dx of PE, status epilecticus, MS, CVA, Sepsis/Bacteremia/ hx of central line infection presents to ED via ambulance after attempting to transfer self from bed to wheelchair (patient aware that she is not supposed to be transferring independently) approximately 2PM Sunday afternoon and fell to the floor and hit the bottom of her incision of her nnhln-eoh-seyf amputation in experienced profuse bleeding. Pt denies hit to the head or LOC. Patient being admitted for electrolyte disturbance, IV antibiotics for UTI and consultation with General surgery for injury to the left qoxjw-fgd-aeed amputation stump site status post fall. Patient does not meet criteria for sepsis on admission. Status post fall no AMS, injury to left BKA stump No report of seizure activity since discharge on 01/31/2025 Patient verbalizes understanding that she is not supposed to transfer independently, but is stubborn and attempted to transfer on her own and fell (pt's sister is her [employer]OT[employer] CASTING MACHINE OPERATOR and HCP) Fall prevention measures in, patient is legally blind has no vision Left knee, femur x-rays pending Dilaudid IV ordered for pain General surgery consult Patient NPO until cleared by surgeon Acute hyperkalemia Patient received calcium gluconate insulin and albuterol in ED Repeat BMP pending Telemetry Hyponatremia Urine studies requested Nephrology consulted Trend BMP No AMS UTI Patient is started on ceftriaxone 1 g Q 24 Follow urine culture Hyperglycemia, IDDM II, diabetic retinopathy legally blind Sliding scale insulin for NPO status until cleared by surgeon Diabetic diet once no longer NPO Update insulin regimen based on med rec No evidence of DKA on admission Conservative fluids due to history of CM and risk for pulmonary edema Constipation MiraLax scheduled daily Senna Dulcolax suppository p.r.n. KUB 01/31/25 negative for obstruction Recent PE Patient normally on Eliquis now 2.5 b.i.d. secondary to end-stage renal disease Resume once cleared by surgery Recent dx status epilepticus Continue Keppra No seizure activity since discharge Seizure precautions ordered Patient plans to follow with Neurology as an outpatient HTN Once med rec completed continue home medications including hydralazine, Coreg and amlodipine Hydralazine IV p.r.n. for systolic greater than 160 ESRD on Dilaysis outpatient T,TH and Sat, non oliguic, non anuric/ Anemia secondary to ESRD Perm cath [facility] Nephrology consulted Last dialysis January 31 for 2 hours Treating incidental hyperkalemia, hyponatremia Chronic R foot wound Wound care consulted History of MS No recent flare Patient did complete recent steroid therapy Patient requesting PT eval, is interested in short-term rehab if indicated DVT prophylaxis: Eliquis once cleared by surgeon MED REC PENDING FULL CODE STATUS Patient requires at least 2 midnight stay for IV antibiotics, expert consultation with General surgery noting injury potential to left BKA state status post fall. Quality Stroke Does the patient have a stroke diagnosis?: No Reason for No Anti-thrombotic by Day Two: N/A - Med Ordered VTE Prior VTE?: No VTE Risk Level:: Medical - moderate - high VTE Device Contraindication: Treatment Not Tolerated VTE Drug Contraindication: N/A - Med Ordered
[2025-02-02 04:53] LABS: Cannabinoid Screen Urine Not Detected (Not Detect)
--- NOTE | 2025-02-02 05:08 | HO.NURTONUR ---
34 visually impaired wheelchair bound female biba from home after falling during transfer to lift chair. Patient BKA with sutures that were ripped out during the fall. Denies LOC or head strike, bleeding controlled [facility] Labs remarkable for WBC 16.2 K 5.7 Glucose 558/324 Ca 7.2 and urine shows signs of UTI. Patient straight catheterized in ED for urinal sample Meds given Calcium, 1L NS, 10unit insulin, rocephin. 20 L FR PMH type 2 diabetes with diabetic nephropathy with end-stage renal disease currently on hemodialysis Sunday, , and Sunday, multiple sclerosis, seizures, encephalopathy, and a recent left BKA by Dr. Rajput on January 05 of this year secondary to chronic osteomyelitis. The patient was also recently re-admitted to this facility for a distal femoral abscess, and while inpatient suffered a seizure requiring ICU admission.
[2025-02-02 05:45] LABS: Hematocrit 32.4 % (37.0-47.0); Hemoglobin 11.0 g/dl (12.0-16.0); Imm Gran Abs Auto 0.21 X10*3/uL (0.00-0.03); Imm Gran Pct Auto 1.2 % (0.0-0.4); Lymphocytes Absolute Auto 0.4 X10*3/uL (1.2-4.9); MANUAL DIFF FLAG NO; Mean Corpuscular HGB Conc 34.0 g/dl (31.0-35.0); Mean Corpuscular Hemoglobin 30.5 pg (27.0-33.0); Mean Corpuscular Volume 89.8 fL (80.0-98.0); NRBC Abs Auto 0.000 X10*3/uL (0.0-0.012); NRBC Pct Auto 0.0 /100WBC (0.0-0.2); Platelet Count 139 X10*3/uL (160-400); Red Blood Count 3.61 X10*6/uL (4.20-5.50); White Blood Count 17.0 X10*3/uL (4.8-10.8)
[2025-02-02 06:08] LABS: Glucose, Whole Blood 295 mg/dL (60-115)
[2025-02-02 06:08] LABS: Alanine Aminotransferase 7 U/L (0-31); Albumin Level 3.4 g/dL (3.5-5.0); Alkaline Phosphatase 118 U/L (39-117); Anion Gap 21 (12-20); Aspartate Amino Transferase 11 U/L (5-31); Blood Urea Nitrogen 101 mg/dL (9-16); Calcium 7.2 mg/dL (8.4-10.2); Carbon Dioxide 18 mmol/L (22-29); Chloride 97 mmol/L (96-108); Creatinine Clr Calc Pharmacy 11.5; Estimated Glomerular Filt Rate 6; Potassium 5.2 mmol/L (3.3-5.1); Sodium 131 mmol/L (135-145); Total Protein 5.9 g/dL (6.5-8.0)
--- NOTE | 2025-02-02 06:09 | PC.NURSE ---
critical lab results given to primary RN- creat. 7.51.
--- NOTE | 2025-02-02 07:08 | PC.NURSE ---
sleeping and easily woken, nad, reports sleeping and wants more rest, door shut at pt request
--- NOTE | 2025-02-02 07:26 | P.PNIM_ITS ---
Subjective Subjective Date of Service: 02/02/25 Physical Exam 2 Vital Signs: Vital Signs: Last Vital Signs Temp 97.8 F 02/02/25 02:23 Pulse 79 02/02/25 05:17 Resp 12 02/02/25 05:17 BP 153/77 H 02/02/25 05:17 Pulse Ox 99 02/02/25 05:17 O2 Del Method Room Air 02/02/25 05:17 BMI result Body Mass Index 31.0 Objective Data Active Medications Acetaminophen (Acetaminophen 325 Mg Tablet) 650 mg PO Q6H PRN PRN Reason: Pain, Mild 1-3,fever,headache Albuterol/Ipratropium (Albuterol/Iprat 2.5/0.5mg 3 Ml Ampul.Neb) 3 ml INHALE Q4H PRN PRN Reason: Shortness of Breath/Wheezing Bisacodyl (Bisacodyl 10 Mg Supp.Rect) 10 mg HI BEDTIME PRN PRN Reason: Constipation Calcium Carbonate (Calcium Carbonate 750 Mg Tab.Chew) 750 mg PO Q4H PRN PRN Reason: Heartburn Dextrose (Dextrose 50 % 25 Gm/50 Ml Syringe) 25 gm IVPUSH Q15M PRN; Protocol PRN Reason: per Hypoglycemia Standing Ord. Glucose (Glucose Gel 15 Gm Gel..Gram.) 15 gm PO Q15M PRN; Protocol PRN Reason: per Hypoglycemia Standing Ord. Hydromorphone HCl (Hydromorphone Hcl 1 Mg/Ml Syringe) 1 mg IVPUSH Q3H PRN; Protocol PRN Reason: Pain, Severe (Pain Scale 7-10) Last Admin: 02/02/25 05:29 Dose: 1 mg Documented By: LEE Ceftriaxone Sodium 1 gm/ (Sodium Chloride) 50 mls @ 100 mls/hr IV Q24H [facility] Insulin Human Lispro (Insulin Lispro 100 Unit/Ml 3 Ml Vial) 0 unit SUBCUT Q6H [facility]; Protocol Last Admin: 02/02/25 06:10 Dose: 6 unit Documented By: LEE Magnesium Hydroxide (Milk Of Magnesia 30 Ml Oral.Susp) 30 ml PO DAILY PRN PRN Reason: Constipation Melatonin (Melatonin 3 Mg Tablet) 6 mg PO BEDTIME PRN PRN Reason: Insomnia Ondansetron HCl (Ondansetron Hcl 4 Mg/2 Ml Vial) 4 mg IVPUSH Q8H PRN PRN Reason: Nausea and Vomiting Last Admin: 02/02/25 05:29 Dose: 4 mg Documented By: LEE Polyethylene Glycol (Polyethylene Glycol 3350 17 Gm Powd.Pack) 17 gm PO DAILY VASILE Senna (Sennosides 8.6 Mg Tablet) 17.2 mg PO BEDTIME VASILE Sodium Chloride (0.9 % Sodium Chloride Flush 3 Ml Syringe) 3 ml IVFLUSH QSHIFT [facility] Labs 02/02/25 05:40 02/02/25 05:40 Labs: Laboratory Results - last 24 hr 02/02/25 02/02/25 02/02/25 00:57 00:58 02:08 MCV 90.8 MCH 30.3 MCHC 33.3 RDW 15.8 Plt Count 156 L MPV 12.6 H Immature Gran % (Auto) 1.2 H Neut % (Auto) 94.0 H Lymph % (Auto) 1.5 L [place] % (Auto) 3.2 Eos % (Auto) 0.0 Baso % (Auto) 0.1 Lymph # (Auto) 0.2 L [place] # (Auto) 0.5 Eos # (Auto) 0.0 Baso # (Auto) 0.0 Abs Immat Gran (auto) 0.20 H Absolute Neuts (auto) 15.2 H Absolute Nucleated RBC 0.000 Nucleated RBC % (auto) 0.0 Smear Tech's Comments VERIFIED VBG pH VBG pCO2 VBG pO2 VBG HCO3 VBG O2 Saturation VBG Base Excess Anion Gap 22 H Estim Creat Clear Calc 11.3 Estimated GFR 6 POC Glucose Random Glucose 558 H* Lactic Acid 1.8 Calcium 7.2 L Magnesium 2.5 Total Bilirubin 0.6 AST 11 ALT 9 Alkaline Phosphatase 134 H Ammonia 24 Total Protein 6.4 L Albumin 3.7 Beta-Hydroxybutyrate 0.06 Urine Color Urine Appearance Urine pH Ur Specific [place] Urine Protein Urine Glucose (UA) Urine Ketones Urine Blood Urine Nitrite Ur Leukocyte Esterase Urine RBC Urine WBC Ur Squamous Epith Cells Urine Bacteria Hyaline Casts Urine Opiates Screen Ur Buprenorphine Scrn Ur Oxycodone Screen Urine Methadone Screen Urine Fentanyl Screen Ur Barbiturates Screen Ur Phencyclidine Scrn Ur Amphetamines Screen U Benzodiazepines Scrn Urine Cocaine Screen U Marijuana (THC) Screen 02/02/25 02/02/25 02/02/25 02:15 02:37 03:31 MCV MCH MCHC RDW Plt Count MPV Immature Gran % (Auto) Neut % (Auto) Lymph % (Auto) [place] % (Auto) Eos % (Auto) Baso % (Auto) Lymph # (Auto) [place] # (Auto) Eos # (Auto) Baso # (Auto) Abs Immat Gran (auto) Absolute Neuts (auto) Absolute Nucleated RBC Nucleated RBC % (auto) Smear Tech's Comments VBG pH 7.37 VBG pCO2 34 VBG pO2 91 VBG HCO3 20 L VBG O2 Saturation 97.0 VBG Base Excess -4.2 Anion Gap Estim Creat Clear Calc Estimated GFR POC Glucose 324 H Random Glucose Lactic Acid Calcium Magnesium Total Bilirubin AST ALT Alkaline Phosphatase Ammonia Total Protein Albumin Beta-Hydroxybutyrate Urine Color Yellow Urine Appearance Cloudy Urine pH 7.0 Ur Specific [place] 1.020 Urine Protein 300 (3+) H Urine Glucose (UA) 500 H Urine Ketones Negative Urine Blood Negative Urine Nitrite Negative Ur Leukocyte Esterase Small (1+) H Urine RBC 0-2 Urine WBC 11-20 H Ur Squamous Epith Cells 11-20 Urine Bacteria 4+ Hyaline Casts 3-5 Urine Opiates Screen Not Detected Ur Buprenorphine Scrn Not Detected Ur Oxycodone Screen Positive H Urine Methadone Screen Not Detected Urine Fentanyl Screen Not Detected Ur Barbiturates Screen Not Detected Ur Phencyclidine Scrn Not Detected Ur Amphetamines Screen Not Detected U Benzodiazepines Scrn Not Detected Urine Cocaine Screen Not Detected U Marijuana (THC) Screen Not Detected 02/02/25 02/02/25 05:40 06:03 MCV 89.8 MCH 30.5 MCHC 34.0 RDW 15.5 Plt Count 139 L MPV 11.9 Immature Gran % (Auto) 1.2 H Neut % (Auto) 89.8 H Lymph % (Auto) 2.2 L [place] % (Auto) 6.6 Eos % (Auto) 0.0 Baso % (Auto) 0.2 Lymph # (Auto) 0.4 L [place] # (Auto) 1.1 Eos # (Auto) 0.0 Baso # (Auto) 0.0 Abs Immat Gran (auto) 0.21 H Absolute Neuts (auto) 15.3 H Absolute Nucleated RBC 0.000 Nucleated RBC % (auto) 0.0 Smear Tech's Comments VBG pH VBG pCO2 VBG pO2 VBG HCO3 VBG O2 Saturation VBG Base Excess Anion Gap 21 H Estim Creat Clear Calc 11.5 Estimated GFR 6 POC Glucose 295 H Random Glucose 314 H Lactic Acid Calcium 7.2 L Magnesium Total Bilirubin 0.5 AST 11 ALT 7 Alkaline Phosphatase 118 H Ammonia Total Protein 5.9 L Albumin 3.4 L Beta-Hydroxybutyrate Urine Color Urine Appearance Urine pH Ur Specific [place] Urine Protein Urine Glucose (UA) Urine Ketones Urine Blood Urine Nitrite Ur Leukocyte Esterase Urine RBC Urine WBC Ur Squamous Epith Cells Urine Bacteria Hyaline Casts Urine Opiates Screen Ur Buprenorphine Scrn Ur Oxycodone Screen Urine Methadone Screen Urine Fentanyl Screen Ur Barbiturates Screen Ur Phencyclidine Scrn Ur Amphetamines Screen U Benzodiazepines Scrn Urine Cocaine Screen U Marijuana (THC) Screen Quality Stroke Does the patient have a stroke diagnosis?: No Reason for No Anti-thrombotic by Day Two: N/A - Med Ordered VTE Prior VTE?: No VTE Risk Level:: Medical - moderate - high VTE Device Contraindication: Treatment Not Tolerated VTE Drug Contraindication: N/A - Med Ordered
--- NOTE | 2025-02-02 08:31 | PHA.MEDREC ---
Addendum entered by Maulik Goodman RPh 02/02/25 11:03: Reviewed by [facility] Original Note: Pharmacy Consult ? Medication Reconciliation Pharmacy has completed the medication reconciliation. Spoke with pt and she confirmed and verified she was just discharged with us 01/31 and there are no changed to her current meds. Pt was discharged to start Amlodipine 2.5mg 3 tabs (7.5mg) @bedtime, Bisacodyl 5mg 2 @Bedtime PRN; pt states that's not giving her much relief like she'd hope for, Dextrose (Glucose Gel) 15g Q15m PRN, Docusate 100mg 1 BID, Eliquis 2.5mg 1 BID, Insuin Lispro (Admelog Solostar U-100) per sliding scale TIDAC, Levetiracetam 500mg 3 tabs (1500mg) BID, Polythylene Glycol 3350 powder 17g QD PRN; Pt never got that from the pharmacy, Prednisone 10mg taper for 12 days; pt never got that from her pharmacy and in claims pt was prescribed Amoxicillin-Pot Clavulanate 500-125mg regimen 01/31; states she never got that from her pharmacy.
--- NOTE | 2025-02-02 10:40 | PC.NURSE ---
pt aware of NPO status, pt does not want her am meds as she does not want to take on an empty stomach, awaiting surgical consult and will medicate when npo status changed as requested by pt
--- NOTE | 2025-02-02 11:30 | PM.DS ---
DS: Providers Provider Date of Service: 02/02/25 Date of admission: 02/02/25 04:25 Date of discharge: 02/02/25 Primary care physician: Genevieve Casillas MD Consults: 02/02/25 05:07 Consult to General Surgery Routine Consulting Provider: [facility] General Surgeons Reason for consultation: injury to L stump s/p fall Has provider been notified: No Consult to Nephrology Routine Consulting Provider: [facility] Reason for consultation: ESRD on dilaysis, hyponatremia, Hyperkalemia Has provider been notified: No 02/02/25 05:08 Consult to Wound Care Routine Consulting Provider: [facility] Wound Care Management Reason for consultation: L stump care, R foot wound (chronic) 02/02/25 06:55 Consult to Case Management Routine Comment: review care needs at home, fall prevention, servic DS: Diagnosis Discharge Diagnosis (1) Fall: Status: Acute (2) Acute hyperkalemia: Status: Acute (3) UTI (urinary tract infection): Status: Acute (4) Status epilepticus: Status: Acute DS: Summary Hospital Course Hospital Course: Per H&P: Chief Complaint: AMS, s/p fall, HyperK HypoNa, hyperglycemia Patient is a 34-year-old female, [place]ian speaking, with past medical history ESRD on dialysis T,TH and Sat with perm cath - nonoliguric, nonanuric, Anemia secondary to ESRD, 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 Rajput), HTN, PAD, CDIFF, anxiety, depression, recent dx of PE, status epilecticus, MS, CVA, Sepsis/Bacteremia/ hx of central line infection presents to ED via ambulance after attempting to transfer self from bed to wheelchair (patient aware that she is not supposed to be transferring independently) approximately 2PM Sunday afternoon and fell to the floor and hit the bottom of her incision of her behff-siw-cflo amputation in experienced profuse bleeding. Pt denies hit to the head or LOC. Patient's sister was immediately present and was able to transport patient to the shower but the bleeding persisted for some time. Patient is on Eliquis for recent diagnosis of PE. 911 was called and bleeding was controlled at the site with EMS. Steri-Strips were placed in the ED. Patient noted to be hypertensive. Patient was discharged from [facility] January 31 and received dialysis for 2 hours after discharge. Patient denies any current use of tobacco, nicotine via vaping, marijuana, alcohol or illicit drugs. Work up in the ED revealed possible UTI with a noted leukocytosis of 16.2, small Le, WBC 11-20, Bacteria 4+. Pt started on ceftriaxone in ED. H&H stable currently at 11.5 and 34.5. PLTs 156K. Glucose 558 mg/dL, AG 22, CO2 18 but no acidosis via VBG. Results were 7.37, 34, 91, 20. BG now 324 mg/dL. K 5.7. Na 127, was 132 on discharge 01/31/25. LA 1.8. Ammonia 24. Beta-Hydroxybutyrate 0.06. L BKA stmp intact but very painful and throbbing for pt. Bleeding remains controlled. No issues with hypoxia, chest pain, N/V. Pt reports ongoing constipation, straining and reports no BM in a month's time. Pt offers that she is stubborn and still believes she can do things for herself. Pt states that if her sister was not able to help her any longer, she would reside at [facility] if needed, near her [facility]. Pt has plans for fistula and to eventually start home dialysis in the near future. Pt states she will use call light and will not attempt to get OOB independently. Hospital course : Assumed care of the patient this a.m.. Patient was very upset about her being NPO, awaiting surgery and nephro input based on her labs. This 34-year-old woman with end-stage renal disease on dialysis, recent left below-knee amputation, poorly controlled diabetes, chronic wounds, recent pulmonary embolism on anticoagulation, and multiple other serious comorbidities presented after a fall with significant bleeding from her amputation site. She is also currently hypertensive, hyperglycemic, hyperkalemic, and hyponatremic, with evidence of infection (possible UTI and leukocytosis), and ongoing severe constipation. Leaving the hospital against medical advice (AMA) is life-threatening for her due to the following reasons: High risk of rebleeding?from her recent amputation site, especially while on apixaban, which could lead to uncontrolled hemorrhage. Uncontrolled hyperglycemia?and electrolyte disturbances (hyperkalemia, hyponatremia) can rapidly become fatal without close monitoring and intervention. Active infection?(possible UTI with leukocytosis) could progress to sepsis, especially given her immunocompromised state from ESRD and diabetes. Recent history of PE?and ongoing anticoagulation increase her risk for both bleeding and recurrent clotting events. Severe constipation?and inability to care for herself at home put her at risk for bowel obstruction, further infection, and complications from immobility. Multiple comorbidities?(ESRD, diabetes, PAD, recent CVA, MS, history of sepsis) make her highly vulnerable to rapid clinical deterioration. Despite extensive counseling regarding the significant, life-threatening risks of leaving the hospital against medical advice?including the potential for uncontrolled bleeding from her recent amputation site while on anticoagulation, severe electrolyte and glucose abnormalities, active infection, and her inability to safely care for herself at home?the patient elected to leave the hospital. She was made aware that her complex medical conditions require close monitoring and urgent intervention, and that leaving AMA could result in rapid deterioration, permanent disability, or . The patient verbalized understanding of these risks, declined further inpatient care, and left the hospital in stable condition at the time of departure. She was provided with instructions for urgent return to the ED if her condition worsens and was encouraged to follow up closely with her outpatient providers. This note is constructed using voice recognition software. While every effort has been made to ensure accuracy, central office maintainer errors may have been included. Time spent discussing smoking cessation with patient: more than 10 minutes Status at Discharge Functional status at discharge: bed bound Overall status at discharge: patient is not back to baseline Time Attestation Discharge Coordination Time (in mins): 65 Quality: Safe Use of Opioids Does Pt have an Active Cancer Diagnosis on the Problem List?: No Quality: Stroke Does the patient have a stroke diagnosis?: No Physical Exam Exam: Exam: Alert and orientated X3, Cardiac: S1 S2 RRR, no murmur, no JVD, no edema in Lower ext Pulmonary: lungs diminished bilateral Abdominal:soft nondistended Extremities: L BKA site slightly swollen, discolored, mild bruising, no active bleeding Pt has unviewed chronic wound R foot. Vital Signs: Vital Signs: Last Vital Signs Temp 97.8 F 02/02/25 02:23 Pulse 79 02/02/25 05:17 Resp 12 02/02/25 05:17 BP 153/77 H 02/02/25 05:17 Pulse Ox 99 02/02/25 05:17 O2 Del Method Room Air 02/02/25 05:17 BMI result Body Mass Index 31.0 DS: Data Data Completed and Pending Completed studies during hospitalization [Text1]: Procedures Detachment at Left 2nd Toe, Complete, Open Approach (09/08/23) Detachment at Left 3rd Toe, Complete, Open Approach (09/08/23) Detachment at Left 4th Toe, Complete, Open Approach (09/08/23) Detachment at Left Lower Leg, High, Open Approach (12/23/24) Detachment at Right Foot, Partial 1st Ray, Open Approach (03/01/20) Detachment at Right Foot, Partial 2nd Ray, Open Approach (03/01/20) Detachment at Right Foot, Partial 3rd Ray, Open Approach (03/01/20) Detachment at Right Foot, Partial 4th Ray, Open Approach (03/01/20) Detachment at Right Foot, Partial 5th Ray, Open Approach (03/01/20) Drainage of Right Pleural Cavity, Percutaneous Approach (01/14/21) Drainage of Spinal Canal, Percutaneous Approach, Diagnostic (09/05/24) Excision of Left Foot Muscle, Open Approach (01/14/24) Excision of Left Foot Skin, External Approach (10/08/23) Excision of Left Foot Subcutaneous Tissue and Fascia, Open Approach (10/29/24) Excision of Right Foot Skin, External Approach (07/31/24) Excision of Stomach, Pylorus, Via Natural or Artificial Opening Endoscopic, Diagnostic (08/27/22) Fluoroscopy of Spinal Cord (09/05/24) Fluoroscopy of Superior Vena Cava, Guidance (08/14/22) Insertion of Endotracheal Airway into Trachea, Via Natural or Artificial Opening (11/10/23) Insertion of Infusion Device into Right Atrium, Percutaneous Approach (02/25/24) Insertion of Infusion Device into Superior Vena Cava, Percutaneous Approach (05/25/24) Insertion of Infusion Device into Upper Vein, Percutaneous Approach (01/14/24) Insertion of Tunneled Vascular Access Device into Chest Subcutaneous Tissue and Fascia, Percutaneous Approach (05/25/24) Introduction of Other Thrombolytic into Peripheral Vein, Percutaneous Approach (09/05/24) Introduction of Vasopressor into Peripheral Vein, Percutaneous Approach (11/10/23) Isolation (11/10/23) Performance of Urinary Filtration, Intermittent, Less than 6 Hours Per Day (01/11/25) Removal of Infusion Device from Great Vessel, External Approach (01/14/21) Removal of Infusion Device from Great Vessel, Percutaneous Approach (05/25/24) Removal of Infusion Device from Heart, External Approach (01/14/24) Removal of Tunneled Vascular Access Device from Trunk Subcutaneous Tissue and Fascia, Open Approach (05/25/24) Respiratory Ventilation, Greater than 96 Consecutive Hours (11/10/23) Transfusion of Nonautologous Red Blood Cells into Peripheral Vein, Percutaneous Approach (11/10/23) Ultrasonography of Superior Vena Cava, Guidance (02/25/24) Labs on day of discharge: Laboratory Results - last 24 hr 02/02/25 02/02/25 02/02/25 00:57 00:58 02:08 WBC 16.2 H RBC 3.80 L Hgb 11.5 L Hct 34.5 L MCV 90.8 MCH 30.3 MCHC 33.3 RDW 15.8 Plt Count 156 L MPV 12.6 H Immature Gran % (Auto) 1.2 H Neut % (Auto) 94.0 H Lymph % (Auto) 1.5 L [place] % (Auto) 3.2 Eos % (Auto) 0.0 Baso % (Auto) 0.1 Lymph # (Auto) 0.2 L [place] # (Auto) 0.5 Eos # (Auto) 0.0 Baso # (Auto) 0.0 Abs Immat Gran (auto) 0.20 H Absolute Neuts (auto) 15.2 H Absolute Nucleated RBC 0.000 Nucleated RBC % (auto) 0.0 Smear Tech's Comments VERIFIED VBG pH VBG pCO2 VBG pO2 VBG HCO3 VBG O2 Saturation VBG Base Excess Sodium 127 L Potassium 5.7 H D Chloride 93 L Carbon Dioxide 18 L Anion Gap 22 H BUN 96 H Creatinine 7.65 H* Estim Creat Clear Calc 11.3 Estimated GFR 6 POC Glucose Random Glucose 558 H* Lactic Acid 1.8 Calcium 7.2 L Magnesium 2.5 Total Bilirubin 0.6 AST 11 ALT 9 Alkaline Phosphatase 134 H Ammonia 24 Total Protein 6.4 L Albumin 3.7 Beta-Hydroxybutyrate 0.06 Urine Color Urine Appearance Urine pH Ur Specific Valders Urine Protein Urine Glucose (UA) Urine Ketones Urine Blood Urine Nitrite Ur Leukocyte Esterase Urine RBC Urine WBC Ur Squamous Epith Cells Urine Bacteria Hyaline Casts Urine Opiates Screen Ur Buprenorphine Scrn Ur Oxycodone Screen Urine Methadone Screen Urine Fentanyl Screen Ur Barbiturates Screen Ur Phencyclidine Scrn Ur Amphetamines Screen U Benzodiazepines Scrn Urine Cocaine Screen U Marijuana (THC) Screen 02/02/25 02/02/25 02/02/25 02:15 02:37 03:31 WBC RBC Hgb Hct MCV MCH MCHC RDW Plt Count MPV Immature Gran % (Auto) Neut % (Auto) Lymph % (Auto) [place] % (Auto) Eos % (Auto) Baso % (Auto) Lymph # (Auto) [place] # (Auto) Eos # (Auto) Baso # (Auto) Abs Immat Gran (auto) Absolute Neuts (auto) Absolute Nucleated RBC Nucleated RBC % (auto) Smear Tech's Comments VBG pH 7.37 VBG pCO2 34 VBG pO2 91 VBG HCO3 20 L VBG O2 Saturation 97.0 VBG Base Excess -4.2 Sodium Potassium Chloride Carbon Dioxide Anion Gap BUN Creatinine Estim Creat Clear Calc Estimated GFR POC Glucose 324 H Random Glucose Lactic Acid Calcium Magnesium Total Bilirubin AST ALT Alkaline Phosphatase Ammonia Total Protein Albumin Beta-Hydroxybutyrate Urine Color Yellow Urine Appearance Cloudy Urine pH 7.0 Ur Specific Valders 1.020 Urine Protein 300 (3+) H Urine Glucose (UA) 500 H Urine Ketones Negative Urine Blood Negative Urine Nitrite Negative Ur Leukocyte Esterase Small (1+) H Urine RBC 0-2 Urine WBC 11-20 H Ur Squamous Epith Cells 11-20 Urine Bacteria 4+ Hyaline Casts 3-5 Urine Opiates Screen Not Detected Ur Buprenorphine Scrn Not Detected Ur Oxycodone Screen Positive H Urine Methadone Screen Not Detected Urine Fentanyl Screen Not Detected Ur Barbiturates Screen Not Detected Ur Phencyclidine Scrn Not Detected Ur Amphetamines Screen Not Detected U Benzodiazepines Scrn Not Detected Urine Cocaine Screen Not Detected U Marijuana (THC) Screen Not Detected 02/02/25 02/02/25 05:40 06:03 WBC 17.0 H RBC 3.61 L Hgb 11.0 L Hct 32.4 L MCV 89.8 MCH 30.5 MCHC 34.0 RDW 15.5 Plt Count 139 L MPV 11.9 Immature Gran % (Auto) 1.2 H Neut % (Auto) 89.8 H Lymph % (Auto) 2.2 L [place] % (Auto) 6.6 Eos % (Auto) 0.0 Baso % (Auto) 0.2 Lymph # (Auto) 0.4 L [place] # (Auto) 1.1 Eos # (Auto) 0.0 Baso # (Auto) 0.0 Abs Immat Gran (auto) 0.21 H Absolute Neuts (auto) 15.3 H Absolute Nucleated RBC 0.000 Nucleated RBC % (auto) 0.0 Smear Tech's Comments VBG pH VBG pCO2 VBG pO2 VBG HCO3 VBG O2 Saturation VBG Base Excess Sodium 131 L Potassium 5.2 H Chloride 97 Carbon Dioxide 18 L Anion Gap 21 H BUN 101 H Creatinine 7.51 H* Estim Creat Clear Calc 11.5 Estimated GFR 6 POC Glucose 295 H Random Glucose 314 H Lactic Acid Calcium 7.2 L Magnesium Total Bilirubin 0.5 AST 11 ALT 7 Alkaline Phosphatase 118 H Ammonia Total Protein 5.9 L Albumin 3.4 L Beta-Hydroxybutyrate Urine Color Urine Appearance Urine pH Ur Specific Valders Urine Protein Urine Glucose (UA) Urine Ketones Urine Blood Urine Nitrite Ur Leukocyte Esterase Urine RBC Urine WBC Ur Squamous Epith Cells Urine Bacteria Hyaline Casts Urine Opiates Screen Ur Buprenorphine Scrn Ur Oxycodone Screen Urine Methadone Screen Urine Fentanyl Screen Ur Barbiturates Screen Ur Phencyclidine Scrn Ur Amphetamines Screen U Benzodiazepines Scrn Urine Cocaine Screen U Marijuana (THC) Screen Discharge Plan Discharge Patient Disposition: Left Against Medical Advice Discharge Diagnosis: Unwitnessed fall, likely mechanical Referrals: Genevieve Gtz MD [Primary Care Provider, Internal Medicine] - 1 Week Discharge Medications: No Action carvedilol 12.5 mg Tablet 12.5 mg PO BID 90 Days Qty: 180 0RF Protocol: Hold for SBP/HR < HOLD for SBP < : 90 HOLD for HR < : 60 hydralazine 50 mg Tablet 50 mg PO TID 90 Days Qty: 270 0RF Protocol: Hold for SBP< HOLD for SBP < : 90 (DME) FreeStyle Lite Strips Strip Qty: 100 0RF Rx Instructions: Test four times a day or as directed. (DME) blood-glucose meter [FreeStyle Lite Meter] Kit Qty: 1 0RF Rx Instructions: As Directed (DME) pen needle, diabetic 32 gauge x 1/4 needle Qty: 100 0RF Rx Instructions: Use four times a day or as directed. (DME) lancets [FreeStyle Lancets] 28 gauge misc Qty: 100 0RF Rx Instructions: Test four times a day or as directed. metoclopramide HCl [Reglan] 10 mg tablet 10 mg PO Q6H PRN (Reason: nausea and vomiting) Qty: 14 0RF levetiracetam [Keppra] 500 mg tablet 1,500 mg PO BID lidocaine 4 % Adhesive Patch,Medicated 1 patch TOPICAL DAILY PRN (Reason: Pain) nitroglycerin 0.4 mg tablet, sublingual 0.4 mg sublingual DIRECTED PRN (Reason: Angina) albuterol sulfate [Ventolin HFA] 90 mcg/actuation HFA aerosol inhaler 2 puff inhalation Q6H PRN (Reason: wheezing) calcium carbonate [Tums] 200 mg calcium (500 mg) Tablet,Chewable 200 mg PO TIDWM PRN (Reason: Acid Reflux) acetaminophen 325 mg tablet 975 mg PO Q4H PRN (Reason: mild pain) 30 Days Qty: 90 0RF amlodipine 2.5 mg Tablet 7.5 mg PO BEDTIME Qty: 90 0RF Protocol: Hold for SBP< HOLD for SBP < : 90 Eliquis 2.5 mg Tablet 2.5 mg PO BID Qty: 180 0RF valproic acid 250 mg Capsule 500 mg PO TID Qty: 270 0RF bisacodyl 5 mg Tablet,Delayed Release (Dr/Ec) 10 mg PO BEDTIME PRN (Reason: Constipation) Qty: 90 0RF docusate sodium [Colace] 100 mg capsule 100 mg PO BID Qty: 180 0RF oxycodone 10 mg tablet 10 mg PO Q8H PRN (Reason: pain) 5 Days Qty: 24 0RF Rx Instructions: Partial Fill upon patient request. oxycodone [OxyContin] 10 mg Tablet,Oral Only,Ext.Rel.12 Hr 10 mg PO BID 10 Days Qty: 20 0RF Rx Instructions: Partial Fill upon patient request. insulin lispro [Admelog SoloStar U-100 Insulin] 100 unit/mL insulin pen 1 sliding scale dose subcut USEASDIRECTD MDD 45 Qty: 15 0RF Rx Instructions: BG <111 0 units, 111-150 - 0 units, 151-200 2 units, 201-250 4 units, 251-300 6 units, 301-350 8 units, >350 10 units (DME) commode Kit See Rx Instructions .Route Qty: 1 0RF Rx Instructions: As directed dextrose [Glucose Gel] 40 % gel 15 g PO Q15M PRN (Reason: For blood sugar less than 70) Qty: 300 0RF Rx Instructions: until symptoms of low blood sugar are controlled Discharge Orders: Discharge Order (Routine); Ordered 02/02/25 Ordered By: Padmini Marcelino Diet: Diabetic diet Activity on Discharge: Use cane or walker Stand Alone Forms: Against Medical Advice Print Language: [place]ian Care Plan Goals: Care Plan Goals for This Patient: 1. Prevent Rebleeding and Promote Wound Healing - Monitor amputation site for bleeding, infection, and proper healing. - Coordinate wound care and follow-up with vascular surgery or wound clinic. 2. Optimize Dialysis and Renal Management - Ensure adherence to scheduled dialysis sessions. - Monitor and manage fluid, electrolyte, and metabolic derangements (especially potassium, sodium, and glucose). - Support transition to fistula and home dialysis as appropriate. 3. Glycemic Control - Achieve and maintain safe blood glucose levels. - Adjust diabetes medications and insulin regimen as needed. - Provide diabetes education and support. 4. Infection Prevention and Management - Complete antibiotic course for UTI or other infections. - Monitor for signs of sepsis or new infections, especially at central line and wound sites. 5. Anticoagulation Safety - Balance risk of thrombosis (recent PE) with bleeding risk (recent surgery, chronic wounds). - Regularly review anticoagulation needs and monitor for complications. 6. Bowel Management - Address severe constipation with appropriate bowel regimen. - Prevent complications such as bowel obstruction or infection. 7. Functional Safety and Mobility - Prevent falls and further injury by ensuring safe transfer techniques and use of assistive devices. - Encourage use of call light and assistance for mobility. - Assess need for physical therapy and possible placement in a supportive care facility if home support is inadequate. 8. Psychosocial Support - Address anxiety, depression, and adjustment to disability. - Involve social work and case management for discharge planning, home support, and possible placement if needed. 9. Patient Education and Engagement - Reinforce importance of adhering to medical recommendations and seeking help for new or worsening symptoms. - Educate on signs of infection, bleeding, hyperglycemia, and when to seek emergency care. 10. Outpatient Follow-Up - Arrange close follow-up with nephrology, endocrinology, primary care, wound care, and other relevant specialists. - Ensure continuity of care and monitoring of all chronic conditions. Overall Goal: Stabilize acute medical issues, prevent complications, promote safe recovery and independence, and support the patient?s transition to the most appropriate care setting. Health Concerns: See above Plan of Treatment: See above Assessment: See above
[2025-02-02] MEDS: oxyCODONE HCl ER 10 MG TAB.ER.12H PO (11:50)
[2025-02-02] MEDS: 0.9 % Sodium Chloride Flush 3 ML SYRINGE IVFLUSH (11:55)
--- NOTE | 2025-02-02 12:01 | MHC.CM.PN ---
Patient left AMA prior to CM being able to see her.
--- NOTE | 2025-02-02 12:21 | PC.NURSE ---
ate crackers and milk and took po meds, leaving ama, awaiting transport, case management working on ride, hospitalist and Dr Rajput aware and Dr Sánchez removed sutures from l stump at Dr Rajput request, pt alert with nad, dressing placed by pct
--- NOTE | 2025-02-02 13:00 | MHC.CM.ED ---
PLAN IS AMBULANCE HOME [facility]IA [facility] TODAY 1330 TIME ARRANGED WITH LIAISON CM CURRENTLY ON HOLD WITH [facility] REQUEST [phone] TO OBTAIN A RUN NUMBER ANAID AND UNIT AWARE.
== END 2025-02-02 14:33 | disposition left against medical advice (07) | DRG 689 ==
LOC: HO.ED 02-02 04:12 → HO.EDOVER 02-02 04:31
PROVIDERS: Physician Assistant; Admitting Provider Nurse Practitioner Family; Emergency Provider Emergency Medicine; PCP Student in an Organized Health Care Education/Training Program; Visit Provider Student in an Organized Health Care Education/Training Program
DX: N39.0 Urinary tract infection, site not specified (principal); N18.6 End stage renal disease; I13.2 Hypertensive heart and chronic kidney disease with heart failure and with stage 5 chronic kidney disease, or end stage renal disease; E87.1 Hypo-osmolality and hyponatremia; I50.22 Chronic systolic (congestive) heart failure; E11.22 Type 2 diabetes mellitus with diabetic chronic kidney disease; E87.5 Hyperkalemia; Z99.2 Dependence on renal dialysis; H54.8 Legal blindness, as defined in USA; E11.65 Type 2 diabetes mellitus with hyperglycemia; W19.XXXA Unspecified fall, initial encounter; G35.D Multiple sclerosis, unspecified; E11.319 Type 2 diabetes mellitus with unspecified diabetic retinopathy without macular edema; K59.00 Constipation, unspecified; Z86.711 Personal history of pulmonary embolism; Z89.512 Acquired absence of left leg below knee; Z79.4 Long term (current) use of insulin; Z79.01 Long term (current) use of anticoagulants; Z79.899 Other long term (current) drug therapy
CPT/HCPCS: 36415; 73552; 73560; 80053; 80307; 81001; 81003; 82010; 82140; 82803; 82947; 83605; 83735; 85025; 87086; 87088; 87186; 93005; 94640; 97162; 99285; J0613; J0696; J1171; J2405

== ENCOUNTER → 2025-02-02 01:57 | Outpatient (BNV) | payer OTHER, SELFPAY | PROVIDERS: Admitting Provider Nurse Practitioner Family; Emergency Provider Emergency Medicine; PCP Student in an Organized Health Care Education/Training Program; Visit Provider Internal Medicine Cardiovascular Disease | DX: I45.10 Unspecified right bundle-branch block (principal) | CPT/HCPCS: 93010 ==

== ENCOUNTER 2025-02-02 04:25 | Outpatient (BNV) | payer OTHER, SELFPAY | END 2025-02-02 08:30 | PROVIDERS: Admitting Provider Nurse Practitioner Family; Emergency Provider Emergency Medicine; PCP Student in an Organized Health Care Education/Training Program; Visit Provider Radiology Diagnostic Radiology | DX: I70.202 Unspecified atherosclerosis of native arteries of extremities, left leg (principal) | CPT/HCPCS: 73552; 73560 ==

== ENCOUNTER → 2025-02-02 04:25 | Outpatient (BNV) | payer OTHER, SELFPAY | PROVIDERS: Admitting Provider Nurse Practitioner Family; Emergency Provider Emergency Medicine; PCP Student in an Organized Health Care Education/Training Program; Visit Provider Nurse Practitioner Family | DX: E87.5 Hyperkalemia (principal); N30.00 Acute cystitis without hematuria; G40.901 Epilepsy, unspecified, not intractable, with status epilepticus; Z53.29 Procedure and treatment not carried out because of patient's decision for other reasons; W19.XXXA Unspecified fall, initial encounter | CPT/HCPCS: 99235; 99499 ==

== ENCOUNTER 2025-02-07 20:31 | Inpatient (IN) | payer OTHER, SELFPAY ==
--- OUTSIDE RECORDS SUMMARY | 2025-02-04 12:00 | XMS_ITS | Encounter Summary ---
Author Organization [facility] Address [address] [place] [address] Phone Care Team Providers Care Reel Man Name Role Phone Genevieve Gtz MD Primary Care Pro vider Reason for Visit * Auth/Cert (Routine) Specialty Diagnoses / Procedures Referred By Contac t Referred To Contact Referral ID Status Reason Start Date Expiration Date Visits Re quested Visits Authorized [id number] 1 1 Encounter Details Date Type Department Care Team ([facility] Contact Info) Description 02/04/2025 12:00 PM EST Home Care Visit [facility] [address] [place] [phone] Araceli Alvarez, KIRIT [address] [place] [address] [email or web address] SN OASIS RESUMPTION OF CARE (LATOYA) Social History Tobacco Use Types Packs/Day Years Used Date Smoking Tobacco: Never Assessed Home Health Assessment: Transportation Answer Date Recorded Lack of Transportation (Medical) No 02/04/2025 Lack of Transportation (Non-Medical) No 02/04/2025 Patient Unable or Declines to Respond No 02/04/2025 Education Answer Date Recorded Are you interested [...] Sign Reading Time Taken Comments Blood Pressure 120/70 02/04/2025 1:40 PM EST Pulse 80 02/04/2025 1:40 PM EST Temperature 36.4 C (97.5 F) 02/04/2025 1:40 PM EST Respiratory Rate 18 02/04/2025 1:40 PM EST Oxygen Saturation 98% 02/04/2025 1:40 PM EST Inhaled Oxygen Concentration - - Weight - - Height - - Body Mass Index - - documented in this encounter Plan of Treatment Upcoming Encounters Date Type Department Care Team (Late st Contact Info) Description 02/09/2025 Appointment [facility] [address] [place] [phone] Araceli Alvarez RN [address] [place] [phone] [email or web address] 02/11/2025 3:00 AM EST Appointment [facility] [address] [place] [phone] Araceli Alvarez RN [address] [place] [phone] [email or web address] 02/13/2025 4:30 AM EST Appointment [facility] [address] [place] [address] Araceli Alvarez RN [address] [place] [address] [email or web address] 02/16/2025 12:30 AM EST Appointment [facility] [address] [place] [phone] Araceli Alvarez RN [address] [place] [address] [email or web address] 02/18/2025 4:30 AM EST Appointment [facility] [address] [place] [phone] Araceli Alvarez, RN [address] [place] [address] [email or web address] 02/20/2025 2:30 AM EST Appointment [facility] [address] [place] [phone] Araceli Alvarez, RN [address] [place] [address] [email or web address] 02/23/2025 1:00 AM EST Appointment [facility] [address] [place] [phone] Araceli Alvarez, RN [address] [place] [address] [email or web address] 02/25/2025 4:00 AM EST Appointment [facility] [address] [place] [phone] Araceli Alvarez, RN [address] [place] [address] [email or web address] 02/27/2025 3:00 AM EST Appointment [facility] [address] [place] [phone] Araceli Alvarez, RN [address] [place] [address] [email or web address] 03/02/2025 2:00 AM EST Appointment [facility] [address] [place] [phone] Araceli Alvarez, RN [address] [place] [address] [email or web address] 03/04/2025 3:00 AM EST Appointment [facility] [address] [place] [phone] Araceli Alvarez RN [address] [place] [address] [email or web address] 03/06/2025 2:00 AM EST Appointment [facility] [address] [place], [place] [phone] Araceli Alvarez RN [address] [place] [address] [email or web address] 03/09/2025 2:00 AM EST Appointment [facility] [address] [place], [place] [phone] Araceli Alvarez RN [address] [place] [address] [email or web address] documented as of this encounter Visit Diagnoses Not on filedocumented in this encounter Home Health Visit - Care Plan Visit Details Visit Type -SN OASIS RESUMPT ION OF CARE Discipline -Long Term Problems Problem Description Start Date Status Goals Interve ntions HH - Wound Disciplines: All Active Home Health Disciplines, Long Term 01/10/2025 Active - 2 problem interventions scheduled/document ed in this visit HH - Medication Management Disciplines: All Active Home Health Disciplines 01/10/2025 Active 1 goal linked to scheduled/document ed intervention 2 goal interventions scheduled/document ed in this visit HH - Focus of Care and Teaching Disciplines: All Active Home Health Disciplines w/RD 01/10/2025 Active 1 goal linked to scheduled/document ed intervention 1 goal intervention scheduled/document ed in this visit HH - Emergency Planning - Knowledge of Disciplines: All Active Home Health Disciplines 01/10/2025 Active 1 goal linked to scheduled/document ed intervention 2 goal interventions scheduled/document ed in this visit HH - Standard of Care Disciplines: All Active Home Health Disciplines 01/10/2025 Active 1 goal linked to scheduled/document ed intervention 2 goal interventions scheduled/document ed in this visit Goals Goal Associated Problem Outcome Goal Met? Visit Notes HH - Safe medication management, avoid unnecessary harm related to medication errors and/or interactions HH - Medication Management No HH - Communication and collaboration to achieve patient goals HH - Focus of Care and Teaching No HH - Knowledge of options for managing care in the event of an emergency related situation. HH - Emergency Planning - Knowledge of No HH - Achieve care management for a safe to home/community discharge from homecare HH - Standard of Care No Interventions Intervention Associated Problem/Goal Status Variance Visit Notes HH - Wound care: Description: Right anterior [...] days. Problem:HH - Wound Performed HH - I/E medication management: administration, purpose, dosages, preparation, setup, scheduling, side effects, food/drug interactions, and potential complications as indicated Description: Update patient's copy of medication list as needed. Problem:HH - Medication Management Goal: - Safe medication management, avoid unnecessary harm related to medication errors and/or interactions Performed - Complete medication review every visit and medication reconciliation as indicated. 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 was resumed services today for wound care and management three times a week on [facility]. Patient and caregiver agreeable to plan. Instruction Provided to: patient and caregiver Respo nse to Instruction/Teaching: Is partially able to teach back topics as evidenced by verbalizing understanding. Plan for Next Visit Specific Focus & Education Needed: Patient will require head to toe reassessment, vital signs recheck, wound care and gumaro gement. New Orders: None Updated Discharge Plan: Patient will be discharged from homecare services once goals are met. HH - I/E management of care in an urgent or emergency (ER) situation: When to call your Home Care Team/911, ER plans, supplies, evacuation, when to contact [...] an emergency related situation. Performed HH - Assess vital signs, pulse oximetry, pain, and as indicated, orthostatic vital signs Description: use agency-specific parameters Problem:HH - Standard of Care Goal:HH - Achieve care management for a safe to home/community discharge from homecare Performed HH - Assess skin integrity Problem:HH - Standard of Care Goal:HH - Achieve care management for a safe to home/community discharge from homecare Performed documented in this encounter Care Teams Reel Man Relationship Specialty Start Date End Date Genevieve Gtz MD [address] [place] [address] PCP - General Internal Medicine 11/06/24 documented as of this encounter Additional Source Comments The information contained in this document represents components of the legal health record. It is not the complete legal health record.[facility]
--- OUTSIDE RECORDS SUMMARY | 2025-02-06 11:00 | XMS_ITS | Encounter Summary ---
Author Organization [facility] Address [address] [place] [address] Phone Care Team Providers Care Claim Review Medical Director Name Role Phone Genevieve Gtz MD Primary Care Pro vider Reason for Visit * Auth/Cert (Routine) Specialty Diagnoses / Procedures Referred By Contac t Referred To Contact Referral ID Status Reason Start Date Expiration Date Visits Re quested Visits Authorized [id number] 1 1 Encounter Details Date Type Department Care Team ([facility] Contact Info) Description 02/06/2025 11:00 AM EST Home Care Visit [facility] [address] [place] [phone] Araceli Alvarez, KIRIT [address] [place] [address] [email or web address] SN HOME VISIT Social History Tobacco Use Types Packs/Day [...] Reading Time Taken Comments Blood Pressure 120/70 02/06/2025 11:30 AM EST Pulse 70 02/06/2025 11:30 AM EST Temperature 36.3 C (97.3 F) 02/06/2025 11:30 AM EST Respiratory Rate 18 02/06/2025 11:30 AM EST Oxygen Saturation 98% 02/06/2025 11:30 AM EST Inhaled Oxygen Concentration - - Weight - - Height - - Body Mass Index - - documented in this encounter Plan of Treatment Upcoming Encounters Date Type Department Care Team (Late st Contact Info) Description 02/09/2025 Appointment [facility] [address] [place] [phone] Araceli Alvarez RN [address] [place] [address] 02/11/2025 3:00 AM EST Appointment [facility] [address] [place] [phone] Araceli Alvarez RN [address] [place] [address] 02/13/2025 4:30 AM EST Appointment [facility] [address] [place] [phone] Araceli Alvarez RN [address] [place] [address] 02/16/2025 12:30 AM EST Appointment [facility] [address] [place] [phone] Araceli Alvarez RN [address] [place] [address] 02/18/2025 4:30 AM EST Appointment [facility] [address] [place] [phone] Araceli Alvarez, RN [address] [place] [address] 02/20/2025 2:30 AM EST Appointment [facility] [address] [place] [phone] Araceli Alvarez, RN [address] [place] [address] 02/23/2025 1:00 AM EST Appointment [facility] [address] [place] [phone] Araceli Alvarez, RN [address] [place] [address] 02/25/2025 4:00 AM EST Appointment [facility] [address] [place] [phone] Araceli Alvarez, RN [address] [place] [address] 02/27/2025 3:00 AM EST Appointment [facility] [address] [place] [phone] Araceli Alvarez, RN [address] [place] [address] 03/02/2025 2:00 AM EST Appointment [facility] [address] [place] [phone] Araceli Alvarez, RN [address] [place] [address] 03/04/2025 3:00 AM EST Appointment [facility] [address] [place] [phone] Araceli Alvarez, RN [address] [place] [address] [email or web address] 03/06/2025 2:00 AM EST Appointment [facility] [address] [place], [place] [phone] Araceli Alvarez RN [address] [place] [address] 03/09/2025 2:00 AM EST Appointment [facility] [address] [place], [place] [phone] Araceli Alvarez RN [address] [place] [address] [email or web address] documented as of this encounter Visit Diagnoses Not on filedocumented in this encounter Home Health Visit - Care Plan Visit Details Visit Type -SN HOME VISIT Discipline -Group Home Problems Problem Description Start Date Status Goals Interve ntions HH - Wound Disciplines: All Active Home Health Disciplines, Group Home 01/10/2025 Active - 2 problem interventions scheduled/document [...] as indicated. [facility] information: [facility] [place] Problem: - Medication Management Goal: - Safe medication management, avoid unnecessary harm related to medication errors and/or interactions Performed - Focus of care, teaching completed and plan for next visit Problem: - Focus of Care and Teaching Goal: - Communication and collaboration to achieve patient goals Performed Primary Clinical Focus this Visit & Instruction Provided: Patient was seen today for a penitentiary visit, vital signs remained stable, Wound care and management provided, patient tolerated same. All other questions and cocnerns addressed during visit . Instruction Provided to: patient Response to Instruction/Yomairain g: Is partially able to teach back topics as evidenced by verbalizing ubderstanding. Plan for Next Visit Specific Focus & Education Needed: Patient will require head to toe reassessmen t, vital signs recheck, New Orders: None Updated Discharge Plan: Patient [...] Performed documented in this encounter Care Teams Claim Review Medical Director Relationship Specialty Start Date End Date Genevieve Gtz MD [address] [place] [address] PCP - General Internal Medicine 11/06/24 documented as of this encounter Additional Source Comments The information contained in this document represents components of the legal health record. It is not the complete legal health record.[facility]
--- NOTE | ~2025-02-07 | XR_ITS ---
CLINICAL HISTORY: cp 1 view chest x-ray Comparison: CR - XR CHEST 1V - 01/26/25 02:38 EST Findings: The lungs are clear. Cardiomegaly. Right internal jugular approach central venous catheter with tip projected over the right atrium. No acute fracture. IMPRESSION: 1. Cardiomegaly. 2. Right internal jugular approach central venous catheter with tip projected over the right atrium. 3. No acute cardiopulmonary findings. This document has been electronically signed by: Evan Peterson MD on 02/07/2025 22:58:20
[2025-02-07 20:41] VITALS: BP 207/102; BP 213/112; PULSE 100; PULSE 98; RESP 20; O2SAT 94; BMI 34.0
[2025-02-07 20:54] VITALS: BP 213/112; PULSE 98; RESP 20; TEMP 36.7; O2SAT 94
--- OUTSIDE RECORDS SUMMARY | 2025-02-07 20:58 | XMS_ITS | Encounter Summary ---
Author Organization [employer] Address [address] 7[address] [place] [address] Care Team Providers Care Director Religious Education Name Role Phone Genevieve Gtz MD Primary Care Pro vider Reason for Visit * Reason Onset Date Comments Med Refill 02/04/2025 Encounter Details Date Type Department Care Team ([facility] Contact Info) Description 02/04/2025 Telephone [facility] MEDICINE [address] [place] [address] Genevieve Gtz MD [address] [place], [place] [phone] Med Refill Social History Tobacco Use Types [...] * Telephone Encounter - Francie Smith - 02/04/2025 1:50 PM EST TC from pt requesting medication refill. Medications needing refill : - oxyCODONE (Roxicodone) 10 MG immediate release tablet To be sent to: - [facility]/pharmacy #[id number] documented in this encounter Plan of Treatment Upcoming Encounters Date Type Department Care Team ([facility] st Contact Info) Description 02/11/2025 2:45 PM EST Clinical Support [facility] MED & PEDS [address] [place] [address] Paola Thurston RN [address] [place] [address] documented as of this encounter Goals Goal [...] as of this encounter Care Teams Director Religious Education Relationship Specialty Start Date End Date Genevieve Gtz MD [address] [place] [address] PCP - General Internal Medicine 10/12/22 documented as of this encounter
--- OUTSIDE RECORDS SUMMARY | 2025-02-07 20:58 | XMS_ITS | Encounter Summary ---
Author Organization [employer] Address [address] 7t [place] [address] Care Team Providers Care Greaser And Oiler Name Role Phone Genevieve Gtz MD Primary Care Pro vider Reason for Visit * Reason Onset Date Comments Med Refill 02/04/2025 Encounter Details Date Type Department Care Team ([facility] Contact Info) Description 02/04/2025 Telephone [facility] MEDICINE [address] [place] [address] Genevieve Gtz MD [address] [place], [place] [phone] Med Refill Social History Tobacco Use Types [...] * Telephone Encounter - Giuseppe Cadena - 02/04/2025 9:16 AM EST TC from pt requesting medication refill. Medications needing refill : oxyCODONE (Roxicodone) 10 MG immediate release tablet To be sent to: [facility]/pharmacy #[id number] [place], [place] - [address] [place] [address] Pt does not want to call every two weeks when she used to get 84 tablets a month. documented in this encounter Plan of Treatment Upcoming Encounters Date Type Department Care Team ([facility] st Contact Info) Description 02/11/2025 2:45 PM EST Clinical Support [facility] MED & PEDS [address] [place] [address] Paola Thurston RN [address] [place] [address] documented as of this encounter Goals Goal [...] documented as of this encounter Care Teams Greaser And Oiler Relationship Specialty Start Date End Date Genevieve Gtz MD [address] [place] [address] PCP - General Internal Medicine 10/12/22 documented as of this encounter
--- OUTSIDE RECORDS SUMMARY | 2025-02-07 20:58 | XMS_ITS | Encounter Summary ---
Author Organization [employer] Address [address] 7t [place] [address] Care Team Providers Care Awning Installer Name Role Phone Genevieve Gtz MD Primary Care Pro vider Reason for Visit * Reason Onset Date Comments Med Refill 06/21/2023 Encounter Details Date Type Department Care Team ([facility] Contact Info) Description 06/21/2023 Telephone [facility] MEDICINE [address] [place], [place] [phone] Genevieve Gtz MD [address] [place], [place] [phone] Med Refill Social History Tobacco Use Types [...] to: [facility]/pharmacy #[id number] [place], [place] - [address] [place] [address] documented in this encounter Plan of Treatment Upcoming Encounters Date Type Department Care Team (Late st Contact Info) Description 02/11/2025 2:45 PM EST Clinical Support [facility] MED & PEDS [address] [place] [address] Paola Thurston, KIRIT [address] [place] [address] documented as of this encounter Goals Goal [...] documented as of this encounter Care Teams Awning Installer Relationship Specialty Start Date End Date Genevieve Gtz MD [address] [place] [address] PCP - General Internal Medicine 10/12/22 documented as of this encounter
--- OUTSIDE RECORDS SUMMARY | 2025-02-07 20:58 | XMS_ITS | Encounter Summary ---
Author Organization [employer] Address [address] [facility] 7t [place] [address] Care Team Providers Care Optical Glass Wet Inspector Name Role Phone Genevieve Gtz MD Primary Care Pro vider Encounter Details Date Type Department Care Team ([facility] st Contact Info) Description 02/02/2025 Orders Only GENERIC EXTERNAL DATA DEPARTMENT Provider, [...] [facility] Contact Info) Description 02/11/2025 2:45 PM EST Clinical Support [facility] [address] [place] [address] Paola Thurston, RN [address] [place] [address] documented as of this encounter Goals Goal Patient Goal Type Associated Problems Recent Progress Patient-Stated? Author Blood Pressure < 140/90 Blood Pressure 129/75(2024 9:08 AM EST) No Jaime Chilel Hemoglobin A1c < 8 Result Component 5.7( 5 9:45 AM EST) No Jaime Chilel documented as of this encounter Procedures Procedure Name Priority Date/Time Associated Diagnosis Comments XR FEMUR 2+ VIEWS LEFT Routine 5 8:30 AM EST XR KNEE 1-2 VIEWS LEFT Routine 5 8:27 AM EST GLUCOSE, WHOLE BLOOD Routine 02/02/2025 3:31 AM EST URINALYSIS, COMPLETE, WITH REFLEX TO CULTURE Routine 02/02/2025 2:37 AM EST VENOUS BLOOD GAS Routine 02/02/2025 2:15 AM EST BETA-HYDROXYBUTYRATE Routine 02/02/2025 2:08 AM EST MAGNESIUM Routine 02/02/2025 12:58 AM EST COMPREHENSIVE METABOLIC PANEL Routine 02/02/2025 12:58 AM EST SLIDE REVIEW Routine 02/02/2025 12:57 AM EST CBC WITH AUTO DIFFERENTIAL Routine 02/02/2025 12:57 AM EST LACTIC ACID Routine 02/02/2025 12:57 AM EST AMMONIA (P) Routine 02/02/2025 12:57 AM EST documented in this encounter Results * XR Femur 2+ Views Left (02/02/2025 8:30 AM EST) Anatomical Region Laterality Modality Lower Extremities, Femur Left Radiogr aphic Imaging 02/02/2025 8:30 AM EST Narrative 02/02/2025 8:51 AM EST [place] [address] XRay Report Signed Patient: Shereen Taylor MR#: [id number] : 1990 Acct:[id number] Age/Sex: 34 / F ADM Date: 02/02/25 Loc: [facility]: Padmini Marcelino MD Ordering Physician: Chasity Garzon Date of Service: 02/02/25 Procedure(s): XR femur LT 2V Accession Number(s): [id number] cc: Chasity Garzon; Genevieve Gtz MD Reason for Exam: s/p fall pt is wc bound EXAMINATION: XR FEMUR, LEFT CLINICAL INFORMATION: s/p fall pt is wc bound COMPARISON: Correlated to CT dated January 21, 2025. TECHNIQUE: AP and lateral views of the left femur were obtained. FINDINGS: No acute cortical disruption. No lytic or blastic lesions. No periosteal bone reaction. No osteolysis. No subcutaneous emphysema. Vascular calcifications. Status post below-knee amputation. XR/XR femur LT 2V IMPRESSION: No acute fracture. No gross osteomyelitis. Atherosclerosis disease, peripheral. Electronically signed by: Shadi Lopez MD 02/02/2025 08:48 AM EST Dictated By: Shadi Mason MD Signed By: <Electronically signed by Shadi Narvaez MD in OV> 02/02/25847 DD/ 9 TD/TT: 02/02/25837 Outside Operator: Procedure Note Donotsenaitinterpreter, Image - 02/02/2025 [place] [address] XRay Report Signed Patient: Danna Taylor#: [id number] : 1990Acct:[id number] Age/Sex: 34 / FADM Date: 02/02/25 Loc: [facility]: Padmini Marcelino MD Ordering Physician: Chasity Garzon Date of Service: 02/02/25 Procedure(s): XR femur LT 2V Accession Number(s): [id number] cc: Chasity Garzon; eGnevieve Gtz MD Reason for Exam: s/p fall pt is wc bound EXAMINATION: XR FEMUR, LEFT CLINICAL INFORMATION: s/p fall pt is wc bound COMPARISON: Correlated to CT dated January 21, 2025. TECHNIQUE: AP and lateral views of the left femur were obtained. FINDINGS: No acute cortical disruption. No lytic or blastic lesions. No periosteal bone reaction. No osteolysis. No subcutaneous emphysema. Vascular calcifications. Status post below-knee amputation. XR/XR femur LT 2V IMPRESSION: No acute fracture. No gross osteomyelitis. Atherosclerosis disease, peripheral. Electronically signed by: Shadi Lopez MD 02/02/2025 08:48 AM EST Dictated By: Shadi Mason MD Signed By: <Electronically signed by Shadi Narvaez MDin OV> 02/02/25847 DD/ 9 TD/TT: 02/02/25837 Outside Operator: [facility] External Provider IMG XR PROCEDURES Edited Result - Final * XR Knee 1-2 Views Left (02/02/2025 8:27 AM EST) Anatomical Region Laterality Modality Lower Extremities, Knee Left [facility] 02/02/2025 8:27 AM EST Narrative 02/02/2025 8:46 AM EST [address] [address] XRay Report Signed Patient: Shereen Taylor MR#: [id number] : 1990 Acct:[id number] Age/Sex: 34 / F ADM Date: 02/02/25 [facility]: Padmini Marcelino MD Ordering Physician: Chaisty Garzon Date of Service: 02/02/25 Procedure(s): XR knee LT 2V Accession Number(s): [id number] cc: Chasity Garzon; Genevieve Gtz MD Reason for Exam: s/p fall L BKA EXAMINATION: XR KNEE, LEFT CLINICAL INFORMATION: s/p fall L BKA COMPARISON: January 05, 2022 TECHNIQUE: AP and lateral views of the left knee/stump. FINDINGS: Status post amputation 13 cm below the knee. Degenerative changes in the medial lateral compartment. No osteolysis. No periosteal bone resorption. No periosteal bone reaction. No subcutaneous emphysema. No lytic or blastic lesions. Vascular calcifications. No suprapatellar bursa joint effusion. XR/XR knee LT 2V IMPRESSION: Status post below-knee amputation. No gross osteomyelitis. Atherosclerosis disease, peripheral. Electronically signed by: Shadi Lopez MD 02/02/2025 08:44 AM EST Dictated By: Shadi Mason MD Signed By: <Electronically signed by Shadi Narvaez MD in OV> 02/02/25843 DD/ 6 TD/TT: 02/02/25837 Outside Operator: Procedure Note Donotuseinterpreter, Image - 02/02/[address] [address] XRay Report Signed Patient: Danna Taylor#: [id number] : 1990Acct:[id number] Age/Sex: 34 / FADM Date: 02/02/25 Loc: [facility]: Padimni Marcelino MD Ordering Physician: Chasity Garzon [facility] Date of Service: 02/02/25 Procedure(s): XR knee LT 2V Accession Number(s): [id number] cc: Chasity Garzon [facility]; Genevieve Gtz MD Reason for Exam: s/p fall L BKA EXAMINATION: XR KNEE, LEFT CLINICAL INFORMATION: s/p fall L BKA COMPARISON: January 05, 2022 TECHNIQUE: AP and lateral views of the left knee/stump. FINDINGS: Status post amputation 13 cm below the knee. Degenerative changes in the medial lateral compartment. No osteolysis. No periosteal bone resorption. No periosteal bone reaction. No subcutaneous emphysema. No lytic or blastic lesions. Vascular calcifications. No suprapatellar bursa joint effusion. XR/XR knee LT 2V IMPRESSION: Status post below-knee amputation. No gross osteomyelitis. Atherosclerosis disease, peripheral. Electronically signed by: Shadi Lopez MD 02/02/2025 08:44 AM EST Dictated By: Shadi Mason MD Signed By: <Electronically signed by Shadi Narvaez MDin OV> 02/02/25843 DD/ 6 TD/TT: 02/02/25837 Outside Operator: [facility] External Provider IMG XR PROCEDURES Edited Result - Final * (ABNORMAL) Glucose, Whole Blood (02/02/2025 3:31 AM EST) Glucose, Whole Blood 324(H) 60 - 115 mg/dL [facility] Comment:METER #: [id number] 02/02/2025 3:31 AM EST 02/02/2025 3:35 AM EST Generic External Data Provider LAB BLOOD ORDERAB LES Final Result Performing Organization Address [facility] Co de Phone Number [facility] [address] [place] [address] [phone] * (ABNORMAL) Urinalysis, Complete, with Reflex to Culture (02/02/2025 2:37 AM EST) Color Urine Yellow [facility] Appearance Urine Cloudy [facility] PH 7.0 5.0 - 9.0 [facility] Glucose Urine UA 500(A) Negative mg/dL [facility] Urine Blood Negative Negative [facility] Specific [place] - Urine 1.020 1.005 - 1.025 [facility] Urine Protein 300 (3+)(A) Neg-Trace mg/dL [facility] Urine Ketones Negative Negative mg/dL [facility] Nitrite Urine Negative Negative [facility] Leukocyte Esterase Urine Small (1+)(A) Negative [facility] RBC Urine 0-2 0 - 2 /HPF [facility] Urine WBC 11-20(A) 0 - 5 /HPF [facility] Urine Squamous Epithelial Cell 11-20 0 - 2 /HPF [facility] Urine Bacteria 4+ None Seen [facility] Hyaline Casts, Urine 3-5 0 - 2 /LPF [facility] 02/02/2025 2:37 AM EST 02/02/2025 2:40 AM EST Narrative [facility] - 02/02/2025 3:11 AM EST Urine, Catheterized us Generic External Data Provider LAB URINE ORDERAB LES Final Result Performing Organization Address [facility] Co de Phone Number [facility] [address] [place] [phone] * (ABNORMAL) VENOUS BLOOD GAS (02/02/2025 2:15 AM EST) VBG pH 7.37 7.32 - 7.43 [facility] Comment:METER #: [id number] additional_comment: Giovanna VBG PCO2 34 mmHg [facility] Comment:METER #: [id number] additional_comment: CbCclaire VBG PO2 91 mmHg [facility] Comment:METER #: [id number] additional_comment: Giovanna VBG Base Excess -4.2 mmol/L [facility] Comment:METER #: [id number] additional_comment: Giovanna VBG HCO3 20(L) 22 - 26 mmol/L [facility] Comment:METER #: [id number] additional_comment: Giovanna O2 Sat, Uday 97.0 % [facility] Comment:METER #: [id number] additional_comment: Giovanna 02/02/2025 2:15 AM EST 02/02/2025 2:21 AM EST Generic External Data Provider LAB BLOOD ORDERAB LES Final Result Performing Organization Address City/[facility]/ZIP Co de Phone Number [facility] [address] [place] [phone] * Beta-Hydroxybutyrate (02/02/2025 2:08 AM EST) Beta-Hydroxybut yrate 0.06 0.02 - 0.27 mmol/L [facility] 02/02/2025 2:08 AM EST 02/02/2025 2:16 AM EST Generic External Data Provider LAB BLOOD ORDERAB LES Final Result Performing Organization Address City/[facility]/ZIP Co de Phone Number [facility] [address] [place] [phone] * Magnesium (02/02/2025 12:58 AM EST) Magnesium 2.5 1.6 - 2.6 mg/dL [facility] 02/02/2025 12:5 8 AM EST 02/02/2025 1:01 AM EST us Generic External Data Provider LAB BLOOD ORDERAB LES Final Result [facility] [address] [place] [address] [phone] * (ABNORMAL) Comprehensive Metabolic Panel (02/02/2025 12:58 AM EST) Sodium 127(L) 135 - 145 mmol/L [facility] Potassium 5.7(H) 3.3 - 5.1 mmol/L [facility] Chloride 93(L) 96 - 108 mmol/L [facility] Carbon Dioxide 18(L) 22 - 29 mmol/L [facility] Anion Gap 22(H) 12 - 20 [facility] Urea Nitrogen (BUN) 96(H) 9 - 16 mg/dL [facility] Creatinine, Serum 7.65(HH) 0.5 - 1.4 mg/dL [facility] Comment:Critical value for t est(s): CREAT Results called to andread back by: TIERRA Person calling: [facility] Date: 02/02/25Time: 015 Creatinine Clr Calc Pharmacy 11.3 [facility] Comment:Provided height and weight: 167.64 cm,87.2 kg.eGFR (calculated from the MDRD study equation) and eCrCl(calculated from the Cockcroft-Gault equation) are based ondifferent parameters and may not yield comparable results.If eCrCl result is absurd, please check patient'sheight/weight. Estimated Glomerular Filt Rate 6 [facility] Comment:Chronic Kidney Disea se: Estimated GFR < 60 mL/min/1.80i6Gumtvc Kidney Disease: Estimated GFR < 15 mL/min/1.73m2 Glucose 558(HH) 60 - 115 mg/dL [facility] Comment:Critical value for t est(s): GLU Results called to and readback by: TIERRA Person calling: [facility] Date: 02/02/25 Time:0152 Calcium 7.2(L) 8.4 - 10.2 mg/dL [facility] Bilirubin, Total 0.6 0.0 - 1.0 mg/dL [facility] Aspartate Amino Transferase 11 5 - 31 U/L [facility] Alanine Aminotransferase 9 0 - 31 U/L [facility] Total Protein 6.4(L) 6.5 - 8.0 g/dL [facility] Albumin Level 3.7 3.5 - 5.0 g/dL [facility] Alkaline Phosphatase 134(H) 39 - 117 U/L [facility] 02/02/2025 12:5 8 AM EST 02/02/2025 1:01 AM EST us Generic External Data Provider LAB BLOOD ORDERAB LES Final Result Performing Organization Address [facility] Co wv Phone Number [facility] [address] [place] [phone] * Slide Review (02/02/2025 12:57 AM EST) Slide Review VERIFIED [facility] 02/02/2025 12:5 7 AM EST 02/02/2025 1:01 AM EST us Generic External Data Provider LAB BLOOD ORDERAB LES Final Result Performing Organization Address [facility] Phone Number [facility] [address] [place] [phone] * Lactic Acid (02/02/2025 12:57 AM EST) Lactic Acid 1.8 0.5 - 2.0 mmol/L [facility] 02/02/2025 12:5 7 AM EST 02/02/2025 1:01 AM EST us Generic External Data Provider LAB BLOOD ORDERAB LES Final Result Performing Organization Address [facility] Co wv Phone Number [facility] [address] [place] [phone] * Ammonia, Plasma (02/02/2025 12:57 AM EST) Ammonia (P) 24 13 - 55 umol/L [facility] 02/02/2025 12:5 7 AM EST 02/02/2025 1:01 AM EST us Generic External Data Provider LAB BLOOD ORDERAB LES Final Result Performing Organization Address City/State/[facility] Co de Phone Number [facility] [address] [place] [phone] * (ABNORMAL) CBC auto differential (02/02/2025 12:57 AM EST) Pathologist [facility] White Blood Count 16.2(H) 4.8 - 10.8 X10*3/uL [facility] Red Blood Count 3.80(L) 4.20 - 5.50 X10*6/uL [facility] Hemoglobin 11.5(L) 12.0 - 16.0 g/dl [facility] Hematocrit 34.5(L) 37.0 - 47.0 % [facility] Mean Corpuscular Volume 90.8 80.0 - 98.0 fL [facility] Mean Corpuscular Hemoglobin 30.3 27.0 - 33.0 pg [facility] Mean Corpuscular HGB Conc 33.3 31.0 - 35.0 g/dl [facility] Red Cell Distribution Width 15.8 11.0 - 16.0 % [facility] Platelet Count 156(L) 160 - 400 X10*3/uL [facility] Mean Platelet Volume 12.6(H) 9.4 - 12.3 fL [facility] Neutrophils Percent Auto 94.0(H) 45 - 73 % [facility] Imm Gran Pct Auto 1.2(H) 0.0 - 0.4 % [facility] Lymphocytes Percent Auto 1.5(L) 20 - 40 % [facility] Monocytes Percent Auto 3.2 2 - 11 % [facility] Eosinophils Percent Auto 0.0 0 - 4 % [facility] Basophils Percent Auto 0.1 0 - 2 % [facility] NRBC Pct Auto 0.0 0.0 - 0.2 /100WBC [facility] Neutrophils Absolute Auto 15.2(H) 2.0 - 8.3 x10*3/uL [facility] Imm Gran Abs Auto 0.20(H) 0.00 - 0.03 X10*3/uL [facility] Lymphocytes Absolute Auto 0.2(L) 1.2 - 4.9 X10*3/uL [facility] Monocytes Absolute Auto 0.5 0.1 - 1.2 X10*3/uL [facility] Eosinophils Absolute Auto 0.0 0.0 - 0.4 X10*3/uL [facility] Basophils Absolute Auto 0.0 0.0 - 0.2 X10*3/uL [facility] NRBC Abs Auto 0.000 0.0 - 0.012 X10*3/uL [facility] 02/02/2025 12:5 7 AM EST 02/02/2025 1:01 AM EST us Generic External Data Provider LAB BLOOD ORDERAB LES Edited Result - Final [facility] [address] [place] [address] [phone] documented in this encounter Visit Diagnoses Not on filedocumented in this encounter Additional Health Concerns Assessment Noted Time PHQ-9 Depression Total Score: 0 10/23/19 24 2:23 PM EDT documented as of this encounter Care Teams Optical Glass Wet Inspector Relationship Specialty Start Date End Date Genevieve Gtz MD [address] [place] [address] PCP - General Internal Medicine 10/12/22 documented as of this encounter
--- OUTSIDE RECORDS SUMMARY | 2025-02-07 20:58 | XMS_ITS | Encounter Summary ---
Author Organization [employer] Address [address] [place] [address] [address] [place] [address] Care Team Providers Care Safety And Health Manager Name Role Phone Genevieve Gtz MD Primary Care Pro vider Reason for Visit * Reason Onset Date Comments Med Refill 11/27/2022 Encounter Details Date Type Department Care Team ([facility] st Contact Info) Description 11/27/2022 Telephone [facility] [address] [place], [place] [phone] Genevieve Gtz MD [address] [place], [place] [phone] Med Refill Social History Tobacco Use Types [...] 5 mg. Please send to [facility]/pharmacy #[id number] - [place] - [address] Cool documented in this encounter Plan of Treatment Upcoming Encounters Date Type Department Care Team (Late st Contact Info) Description 02/11/2025 2:45 PM EST Clinical Support [facility] [address] [place] [address] Paola Thurston, RN [address] [place] [address] documented as of this encounter Visit Diagnoses Not on filedocumented in this encounter Additional Health Concerns Assessment Noted Time PHQ-9 Depression Total Score: 0 10/13/19 2:37 PM EDT documented as of this encounter Care Teams Safety And Health Manager Relationship Specialty Start Date End Date Genevieve Gtz MD [address] [place] [phone] PCP - General Internal Medicine 10/12/22 documented as of this encounter
--- OUTSIDE RECORDS SUMMARY | 2025-02-07 20:58 | XMS_ITS | Encounter Summary ---
Author Organization [employer] Address [address] [facility] [address]t [place] [address] Care Team Providers Care Ore Crushing Dust Collector Name Role Phone Genevieve Gtz MD Primary Care Pro vider Reason for Visit * Reason Onset Date Comments Med Refill 06/20/2024 Encounter Details Date Type Department Care Team ([facility] Contact Info) Description 06/20/2024 Telephone [facility] [address] [place] [address] Genevieve Gtz MD [address] [place], [place] [phone] Med Refill Social History Tobacco Use Types [...] To be sent to: [facility]/pharmacy #[id number] [place] [address] documented in this encounter Plan of Treatment Upcoming Encounters Date Type Department Care Team (Late st Contact Info) Description 02/11/2025 2:45 PM EST Clinical Support [facility] [address] [place] [address] Paola Thurston RN [address] [place] [address] documented as of this encounter Goals Goal [...] documented as of this encounter Care Teams Ore Crushing Dust Collector Relationship Specialty Start Date End Date Genevieve Gtz MD [address] [place] [phone] PCP - General Internal Medicine 10/12/22 documented as of this encounter
--- OUTSIDE RECORDS SUMMARY | 2025-02-07 20:58 | XMS_ITS | Encounter Summary ---
Author Organization [employer] Address [address] [facility] 7t [place] [address] Care Team Providers Care Retail Analyst Name Role Phone Carolina Hsu FLAVORING OIL FILTERER Primary Care Provider Genevieve Wilson MD Primary Care Pro vider Reason for Visit * Reason Onset Date Comments Appointment Request 03/30/2022 Encounter Details Date Type Department Care Team ([facility] st Contact Info) Description 03/30/2022 Telephone [facility] [address] [place] [address] [phone] Carolina Hsu FNP Appointment Request Social History [...] EST TC to pt, NCNS for todays DECAL DECORATOR Renewal appt. Pt stated she is currently admitted to [facility], she statedshe has fluid in her lungs and she's a mess. Wished patient well and told her I would forward this information to her PCP. Requested she call back to reschedule DECAL DECORATOR appt when she's feeling better. * Telephone Encounter - Stephen Davison - 03/30/2022 10:41 AM EST documented in this encounter Plan of Treatment Upcoming Encounters Date Type Department Care Team (Late st Contact Info) Description 02/11/2025 2:45 PM EST Clinical Support [facility] [address] [place] [address] Paola Thurston, RN [address] [place] [address] documented as of this encounter Visit Diagnoses Not on filedocumented in this encounter Care Teams Retail Analyst Relationship Specialty Start Date End Date Carolina Hsu FNP PCP - General Family Medicine 01/16/22 10/11/22 Genevieve Gtz MD [address] [place] [phone] PCP - General Internal Medicine 10/12/22 documented as of this encounter
--- OUTSIDE RECORDS SUMMARY | 2025-02-07 20:58 | XMS_ITS | Encounter Summary ---
Author Organization [employer] Address [address] [facility] 7t [place] [address] Care Team Providers Care Email Administrator Name Role Phone Genevieve Gtz MD Primary Care Pro vider Encounter Details Date Type Department Care Team (Late st Contact Info) Description 02/02/2025 Telephone [facility] MEDICINE [address] [place], [place] [phone] Genevieve Gtz MD [address] [place], [place] [phone] Social History Tobacco Use Types Packs/Day Years [...] Telephone Encounter - Anuradha Carmona RN - 02/02/2025 3:50 PM EST Images from the original note were not included. Pt discharged from [facility] 02/01/25-02/02/25 -- She left AMA after unwitnessed fall to recent left BKA amputation site. She was also inpatient 01/21/25-01/31/25 for Sepsis, abscess, seizure. Her manager intensive care unit reached out to nurses with below message about scheduling appts due to dialysis, transportation, recent amputation. Called pt today who is requesting video HDF visit due to cold weather impact on amputation site anddifficulty ambulating with prosthetic. She said if the appointment is via video, then she can make any appointment in the afternoon as she has private room during dialysis. RN spoke with PCP who advised in person visit, any video HDF would be up to individual provider butwould depend on pt keeping specialist appts. RN spoke with nurse facility manager who advised asking individual provider permission for tele- video visit if they feel appropriate. RN booked pt for video HDF 02/06/25. Explained to pt that this is tentative and provider may decline and require in person visit. Pt verbalized understanding. Future Appointments Date Time Provider Department Center 02/05/2025 1:45 PM Jamison Maria MD [facility] 02/11/2025 2:45 PM Paola Thurston RN [facility] --- Ksenia Narvaez RN; Anuradha Carmona RN; Charlotte Pinedo RN Good afternoon, Shereen was admitted to [facility] on 01/21/25. She called me this afternoon to inform she would likely bedischarged to home today. She explained she had a PCP appt on 01/28, but she was notified her PCP was out of office 01/28 and the appt would need to be rescheduled. It looks like her hospital follow up visit has been rescheduled for , 02/05/25 at 1045, angella is unable to attend this appt as it conflicts with her dialysis. For in-person office visits, Shereen reports she has limited availability due to dialysis and transportation availability. Shereen has dialysis on Sunday, , and Sunday. On Sunday, Sunday, and Sunday, she reports the best times for appointments are between 130-230p as this is when she has transportation. Shereen has much more availability when scheduling telehealth appointments. Hopefully, she will be discharged today from [facility] and will be able to discuss scheduling her next PCP appointment with you this afternoon or on Sunday. Thanks so much, ATUL AlmeidaN, RN Nurse Emergency Vehicle Dispatcher [facility] documented in this encounter Plan of Treatment Upcoming Encounters Date Type Department Care Team (Late st Contact Info) Description 02/11/2025 2:45 PM EST Clinical Support [facility] MED & PEDS [address] [place] [address] Paola Thurston, RN 505 [place] [address] documented as of this encounter Goals Goal [...] documented as of this encounter Care Teams Email Administrator Relationship Specialty Start Date End Date Genevieve Gtz MD [address] [place] [phone] PCP - General Internal Medicine 10/12/22 documented as of this encounter
--- OUTSIDE RECORDS SUMMARY | 2025-02-07 20:58 | XMS_ITS | Encounter Summary ---
Author Organization [employer] Address [address] [facility] 7t [place] [address] Care Team Providers Care High Pressure Operator Name Role Phone Genevieve Gtz MD Primary Care Pro vider Encounter Details Date Type Department Care Team (Late st Contact Info) Description 02/04/2025 Orders Only [facility] MEDICINE [address] [place], [place] [phone] Genevieve Gtz MD 230 [place], [place] [phone] Social History Tobacco Use Types Packs/Day Years [...] Encounters Date Type Department Care Team ([facility] st Contact Info) Description 02/11/2025 2:45 PM EST Clinical Support [facility] MED & PEDS [address] [place] [address] Paola Thurston RN 505 [place] [address] documented as of this encounter Goals Goal [...] documented as of this encounter Care Teams High Pressure Operator Relationship Specialty Start Date End Date Genevieve Gtz MD [address] [place] [phone] PCP - General Internal Medicine 10/12/22 documented as of this encounter
--- OUTSIDE RECORDS SUMMARY | 2025-02-07 20:58 | XMS_ITS | Encounter Summary ---
Author Organization [employer] Address [address] [facility] 7t [place] [address] Care Team Providers Care Life Insurance Underwriter Name Role Phone Genevieve Gtz MD Primary Care Pro vider Reason for Visit * Reason Comments Med Change Request Encounter Details Date Type Department Care Team ([facility] st Contact Info) Description 03/15/2023 Refill [facility] MED & PEDS [address] [place], [place] [phone] Genevieve Gtz MD 230 [place], [place] [phone] Benign essential hypertension Social History Tobacco Use [...] Upcoming Encounters Date Type Department Care Team ([facility] st Contact Info) Description 02/11/2025 2:45 PM EST Clinical Support [facility] MED [facility]ED[facility] [address] [place] [address] Paola Thurston, RN 505 [place] [address] documented as of this encounter Visit Diagnoses Diagnosis Benign essential hypertension Essential hypertension, benign documented in this encounter Additional Health Concerns Assessment Noted Time PHQ-9 Depression Total Score: 0 10/13/19 2:37 PM EDT documented as of this encounter Care Teams Life Insurance Underwriter Relationship Specialty Start Date End Date Genevieve Gtz MD [address] [place] [phone] PCP - General Internal Medicine 10/12/22 documented as of this encounter
--- OUTSIDE RECORDS SUMMARY | 2025-02-07 20:58 | XMS_ITS | Encounter Summary ---
Author Organization [employer] Address [address] [facility] 7t [place] [address] Care Team Providers Care Event Promoter Name Role Phone Genevieve Gtz MD Primary Care Pro vider Reason for Visit * Reason Onset Date Comments Call Back Request 06/15/2023 Encounter Details Date Type Department Care Team ([facility] Contact Info) Description 06/15/2023 Telephone [facility] MEDICINE [address] [place], [place] [phone] Genevieve Gtz MD [address] [place], [place] [phone] Call Back Request Social History Tobacco Use [...] pt requesting a call back in regards GLASS CYLINDER FLANGER medication. documented in this encounter Plan of Treatment Upcoming Encounters Date Type Department Care Team ([facility] st Contact Info) Description 02/11/2025 2:45 PM EST Clinical Support [facility] CHC MED & PEDS [address] [place] [address] Paola Thurston, KIRIT 505 [place] [address] documented as of this encounter Goals Goal [...] documented as of this encounter Care Teams Event Promoter Relationship Specialty Start Date End Date Genevieve Gtz MD [address] [place] [phone] PCP - General Internal Medicine 10/12/22 documented as of this encounter
--- OUTSIDE RECORDS SUMMARY | 2025-02-07 20:58 | XMS_ITS | Encounter Summary ---
Author Organization [employer] Address [address] [facility] 7t [place] [address] Care Team Providers Care Ecmo Specialist Name Role Phone Genevieve Gtz MD Primary Care Pro vider Encounter Details Date Type Department Care Team ([facility] st Contact Info) Description 02/05/2025 Telephone [facility] MED & PEDS [address] [place], [place] [phone] Paola Thurston, RN [address] [place] [address] Social History Tobacco Use Types Packs/Day Years [...] t he electric, gas, oil or water Mindie threatened to shut off services in your [...] Telephone Encounter - Paola Thurston RN - 02/05/2025 9:54 AM EST Yes, that is correct. Pt also has HDF appointment with dr. Mayers today. documented in this encounter Plan of Treatment Upcoming Encounters Date Type Department Care Team (Late st Contact Info) Description 02/11/2025 2:45 PM EST Clinical Support [facility] CHC MED & PEDS [address] [place] [address] Paola Thurston RN 505 [place] [address] documented as of this encounter Goals Goal [...] documented as of this encounter Care Teams Ecmo Specialist Relationship Specialty Start Date End Date Genevieve Gtz MD [address] [place] [phone] PCP - General Internal Medicine 10/12/22 documented as of this encounter
--- OUTSIDE RECORDS SUMMARY | 2025-02-07 20:58 | XMS_ITS | Encounter Summary ---
Author Organization [employer] Address [address] [facility] 7t [place] [address] Care Team Providers Care Churn Operator Margarine Name Role Phone Genevieve Gtz MD Primary Care Pro vider Reason for Visit * Reason Onset Date Comments Med Refill 02/04/2025 Encounter Details Date Type Department Care Team ([facility] Contact Info) Description 02/04/2025 Telephone [facility] MED [facility] PEDS [address] [place] [address] Paola Thurston RN [address] [place] [address] Med Refill Social History Tobacco Use Types [...] Telephone Encounter - Paola Thurston RN - 02/04/2025 9:37 AM EST Pt requesting refill of Oxycodone 10mg. Last refill from an outside provider Oxycontin Er 10Mg qty 20 and Oxycodone Hcl (Ir) 10 Mg qty 24 on 02/01/25, notes in pt's chart. documented in this encounter Plan of Treatment Upcoming Encounters Date Type Department Care Team (Late st Contact Info) Description 02/11/2025 2:45 PM EST Clinical Support [facility] MED & PEDS [address] [place] [address] Paola Thurston RN [address] [place] [address] documented as of this encounter Goals Goal [...] documented as of this encounter Care Teams Churn Operator Margarine Relationship Specialty Start Date End Date Genevieve Gtz MD [address] [place] [phone] PCP - General Internal Medicine 10/12/22 documented as of this encounter
--- OUTSIDE RECORDS SUMMARY | 2025-02-07 20:58 | XMS_ITS | Encounter Summary ---
Author Organization [employer] Address [address] [facility] 7t [place] [address] Care Team Providers Care Concrete Layer Name Role Phone Genevieve Gtz MD Primary Care Pro vider Reason for Visit * Reason Onset Date Comments Hospital Follow-up 03/04/2024 Encounter Details Date Type Department Care Team ([facility] Contact Info) Description 03/04/2024 Telephone [facility] MEDICINE 230 [place], [place] [phone] Genevieve Gtz MD 230 [place] [address] Hospital Follow-up Social History Tobacco Use Types [...] from pt requesting a HDF appt. Hospital: [facility] Date of admission: 02/21/2024 Discharge date: 02/01/2025 Diagnosed: Oxygen , Infection Dialysis tube *Send message to [facility] Clinical Care Coordinators documented in this encounter Plan of Treatment Upcoming Encounters Date Type Department Care Team ([facility] st Contact Info) Description 02/11/2025 2:45 PM EST Clinical Support [facility] MED & PEDS [address] [place] [address] Paola Thurston RN [address] [place] [address] documented as of this encounter Goals Goal [...] documented as of this encounter Care Teams Concrete Layer Relationship Specialty Start Date End Date Genevieve Gtz MD [address] [place] [phone] PCP - General Internal Medicine 10/12/22 documented as of this encounter
--- OUTSIDE RECORDS SUMMARY | 2025-02-07 20:59 | XMS_ITS | Clinical Summary ---
Author Organization [facility] Address [address] [address] Phone Care Team Providers Care Telephone Sex Worker Name Role Phone Katlyn Manzanofer Primary [...] 01/21/2025 Treatment [facility] [address] [phone] Ed Carver MD End stage renal disease; Dependence on renal dialysis 01/19/2025 Orders Only [facility] [address] [phone] Ed Carver MD 12/04/2024 Treatment [facility] [address] [phone] Ed Carver MD End stage renal disease; Dependence on renal dialysis 11/25/2024 Treatment [facility] [address] [address] Ed Carver MD End stage renal disease; Dependence on renal dialysis 11/22/2024 [facility] in Dialysis Clinic [facility] [address] [phone] Ed Carver MD 11/22/2024 Treatment [facility] [address] [phone] Ed Carver MD End stage renal disease; [...] HEPATITIS B SURFACE ANTIGEN W/REFL CONFIRM Routine 02/05/2025 3:00 AM EST TRANSFERRIN SATURATION Routine 3:00 AM EST MAGNESIUM Routine 02/05/2025 3:00 AM EST PROTEIN, TOTAL, SERUM Routine 02/05/2025 3:00 AM EST ELECTROLYTE PANEL Routine 02/05/2025 3:0 0 AM EST LACTATE DEHYDROGENASE Routine 02/05/2025 3:00 AM EST LIH (HC) Routine 02/05/2025 3:00 AM EST GLUCOSE, RANDOM Routine 02/05/2025 3:00 AM EST CREATININE, SERUM Routine 02/05/2025 3:0 0 AM EST BUN/CREATININE RATIO Routine 02/05/2025 3:00 AM EST BILIRUBIN, TOTAL Routine 02/05/2025 3:00 AM EST AST Routine 02/05/2025 3:00 AM EST CALCIUM PHOSPHORUS PRODUCT, ADJUSTED (HC) Routine 02/05/2025 3:00 AM EST ALKALINE PHOSPHATASE Routine 02/05/2025 3:00 AM EST ALT Routine 02/05/2025 3:00 AM EST FERRITIN Routine 02/05/2025 3:00 AM EST CBC AND DIFFERENTIAL Routine 02/05/2025 3:00 AM EST KT/V NATURAL LOG, URR (HC) Routine 02/05/2025 3:00 AM EST VANCOMYCIN, RANDOM Routine 01/25/2025 10 :09 AM [...] EDT from Last 3 Months Results * LIH (02/05/2025 3:00 AM EST) Only the most recent of4 resultswithin the time period is included. Pathologist [facility] Lipemia Normal Normal [facility] Icterus Normal Normal [facility] Hemolysis Normal Normal [facility] 02/05/2025 3:00 AM EST 02/06/2025 1:12 PM EST us Ed Carver MD LAB HISTORICA [id number] RESULTS Final Result [facility]PS [facility] [address] [place] [address] * (ABNORMAL) Kt/V Natural Log, URR (02/05/2025 3:00 AM EST) Only the most recent of4 resultswithin the time period is included. Pathologist [facility] Treatment Time 188 min [facility] Pre-Weight, lb 90.8 kg [facility] Post-Weight, lb 87.3 kg [facility] Ultrafiltration Rate 13 <=13 mL/kg/hr [facility] Comment: Recommend achieving Ultrafiltration Rate (UFR) <=10 mL/kg/hr References: Estelle GARCIA et al. Kidney Int. 2010; 79(2):250-257 BUN Post Dialysis 39(H) 7 - 25 mg/dL [facility] BUN 135(H) 7 - 25 mg/dL [facility] UREA REDUCTION RATIO (%) 71 >=65 % [facility] Kt/V Natural Log 1.45 >=1.2 [facility] 02/05/2025 3:00 AM EST 02/06/2025 12:32 PM EST Ed Carver MD LAB HISTORICA [id number] RESULTS Final Result Performing Organization Address [facility] de Phone Number APS [facility] [address] [place] [address] * (ABNORMAL) Calcium Phosphorus Product, Adjusted (02/05/2025 3:00 AM EST) Only the most recent of4 resultswithin the time period is included. Albumin 3.5(L) 3.6 - 5.4 g/dL [facility] Calcium 7.8(L) 8.6 - 10.3 mg/dL [facility] Phosphorus, Serum 6.5(H) 2.5 - 5.0 mg/dL [facility] Ca*PO4 50.7 <55.0 mg2/dL2 [facility] Calcium, Adjusted Total 8.2(L) 8.6 - 10.3 mg/dL [facility] CA*PO4 CORRCTD 53.3 <55.0 mg2/dL2 [facility] 02/05/2025 3:00 AM EST 02/06/2025 1:12 PM EST Ed Carver MD LAB HISTORICA [id number] RESULTS Final Result Performing Organization Address [facility] Co de Phone Number [facility]PS [facility] [address] [place] [address] * Hepatitis B Surface Ag w/Reflex Confirmation (02/05/2025 3:00 AM EST) Only the most recent of4 resultswithin the time period is included. Hep B Surface Antigen Negative Negative [facility] 02/05/2025 3:00 AM EST 02/06/2025 1:12 PM EST us Ed Carver MD LAB BLOOD ORDERABLES Final Result Performing Organization Address [facility] Co de Phone Number [facility] [address] [place] [address] * BUN/CREATININE RATIO (02/05/2025 3:00 AM EST) Only the most recent of4 resultswithin the time period is included. BUN/Creatinine Ratio 13.5 <=23.0 [facility] 02/05/2025 3:00 AM EST 02/06/2025 1:12 PM EST us Ed Carver MD LAB HISTORICA [id number] RESULTS Final Result Performing Organization Address [facility] Co de Phone Number [facility]PS [facility] [address] [place] [address] * (ABNORMAL) TSAT (02/05/2025 3:00 AM EST) Only the most recent of4 resultswithin the time period is included. Iron 16(L) 50 - 170 ug/dL [facility] Transferrin 166(L) 250 - 380 mg/dL [facility] TIBC 232 211 - 406 ug/dL [facility] Iron Saturation (TSat) 7(L) 22 - 52 % [facility] 02/05/2025 3:00 AM EST 02/06/2025 1:12 PM EST us Ed Carver MD LAB BLOOD ORDERABLES Final Result Performing Organization Address [facility] Co de Phone Number [facility]PS [facility] [address] [place] [address] * (ABNORMAL) CBC and Differential (02/05/2025 3:00 AM EST) Only the most recent of4 resultswithin the time period is included. DIFFERENTIAL MANUAL, 2 Not Indicated [facility] White Blood Cells 18.2(H) 4.0 - 10.0 K/uL [facility] RBC 3.06(L) 3.93 - 5.22 M/uL [facility] Hgb 9.5(L) 11.2 - 15.7 g/dL [facility] Hemoglobin x 3 28.5(L) 33.6 - 47.1 g/dL [facility] Hematocrit 28.4(L) 34.1 - 44.9 % [facility] MCV 92.8 79.4 - 94.8 fL [facility] MCH 31.0 25.6 - 32.2 pg [facility] MCHC 33.5 32.2 - 35.5 g/dL [facility] RDW 16.1(H) 11.7 - 14.4 % [facility] Platelets 113(L) 182 - 369 K/uL [facility] MPV 13.4(H) 9.2 - 12.8 fL [facility] Neutrophils Relative 79.5(H) 34.0 - 71.1 % [facility] Lymphocytes Relative 2.4(L) 19.3 - 51.7 % [facility] Monocytes 15.7(H) 4.7 - 12.5 % [facility] Eosinophils Relative 0.9 0.7 - 5.8 % [facility] Basophils Relative 0.2 0.1 - 1.2 % [facility] Immature Granulocytes 1.3(H) 0.0 - 1.0 % [facility] 02/05/2025 3:00 AM EST 02/06/2025 1:10 PM EST us Ed Carver MD LAB BLOOD ORDERABLES Final Result [facility] [address] [place] [address] * ALT (02/05/2025 3:00 AM EST) Only the most recent of4 resultswithin the time period is included. Pathologist [facility] ALT (SGPT) 14 10 - 49 U/L [facility] 02/05/2025 3:00 AM EST 02/06/2025 1:12 PM EST us Ed Carver MD LAB BLOOD ORDERABLES Final Result Performing Organization Address [facility] Co de Phone Number [facility] [address] [place] [address] * AST (02/05/2025 3:00 AM EST) Only the most recent of4 resultswithin the time period is included. AST (SGOT) 15 <34 U/L [facility] 02/05/2025 3:00 AM EST 02/06/2025 1:12 PM EST us Ed Carver MD LAB BLOOD ORDERABLES Final Result Performing Organization Address [facility] Phone Number [facility]PS [facility] [address] [place] [address] * (ABNORMAL) Protein, total (02/05/2025 3:00 AM EST) Only the most recent of4 resultswithin the time period is included. Total Protein 5.9(L) 6.4 - 8.9 g/dL [facility] 02/05/2025 3:00 AM EST 02/06/2025 1:12 PM EST us Ed Carver MD LAB BLOOD ORDERABLES Final Result Performing Organization Address [facility] de Phone Number [facility]PS [facility] [address] [place] [address] * (ABNORMAL) Alkaline phosphatase (02/05/2025 3:00 AM EST) Only the most recent of4 resultswithin the time period is included. Alkaline Phosphatase 130(H) 46 - 116 U/L [facility] 02/05/2025 3:00 AM EST 02/06/2025 1:12 PM EST us Ed Carver MD LAB BLOOD ORDERABLES Final Result Performing Organization Address [facility] de Phone Number [facility]PS [facility] [address] [place] [address] * Magnesium (02/05/2025 3:00 AM EST) Only the most recent of4 resultswithin the time period is included. Magnesium 2.6 1.9 - 2.7 mg/dL [facility] 02/05/2025 3:00 AM EST 02/06/2025 1:12 PM EST Ed Carver MD LAB BLOOD ORDERABLES Final Result Performing Organization Address [facility] Phone Number [facility] [address] [place] [address] * (ABNORMAL) Lactate dehydrogenase (02/05/2025 3:00 AM EST) Only the most recent of4 resultswithin the time period is included. LDH 280(H) 120 - 246 U/L [facility] 02/05/2025 3:00 AM EST 02/06/2025 1:12 PM EST us Ed Carver MD LAB BLOOD ORDERABLES Final Result Performing Organization Address [facility] Phone Number [facility]PS [facility] [address] [place] [address] * (ABNORMAL) Glucose, random (02/05/2025 3:00 AM EST) Only the most recent of4 resultswithin the time period is included. Glucose 305(H) 70 - 99 mg/dL [facility] Comment: ADA guidelines outline the following fasting glucose ranges: Normal: <100 Prediabetes: 100-125 Diabetes: >125 02/05/2025 3:00 AM EST 02/06/2025 1:12 PM EST us Ed Carver MD LAB BLOOD ORDERABLES Final Result Performing Organization Address [facility]/ZIP Co de Phone Number [facility] [address] [place] [address] * Ferritin (02/05/2025 3:00 AM EST) Only the most recent of4 resultswithin the time period is included. Ferritin 142 10 - 291 ng/mL [facility] 02/05/2025 3:00 AM EST 02/06/2025 1:12 PM EST Ed Carver MD LAB BLOOD ORDERABLES Final Result Performing Organization Address [facility] Co de Phone Number [facility] [address] [place] [address] * (ABNORMAL) Creatinine, serum (02/05/2025 3:00 AM EST) Only the most recent of4 resultswithin the time period is included. Creatinine 10.00(H) 0.55 - 1.02 mg/dL [facility] 02/05/2025 3:00 AM EST 02/06/2025 1:12 PM EST Ed Carver MD LAB BLOOD ORDERABLES Final Result Performing Organization Address [facility] de Phone Number [facility] [address] [place] [address] * (ABNORMAL) Bilirubin, total (02/05/2025 3:00 AM EST) Only the most recent of4 resultswithin the time period is included. Total Bilirubin 0.2(L) 0.3 - 1.2 mg/dL [facility] 02/05/2025 3:00 AM EST 02/06/2025 1:12 PM EST us Ed Carver MD LAB BLOOD ORDERABLES Final Result Performing Organization Address [facility] Co de Phone Number [facility] [address] [place] [address] * (ABNORMAL) Electrolyte panel (02/05/2025 3:00 AM EST) Only the most recent of4 resultswithin the time period is included. Sodium 129(L) 136 - 145 mEq/L [facility] Comment:Verified by repeat a nalysis Potassium 6.6(H) 3.4 - 5.0 mEq/L [facility] Chloride 100 98 - 107 mEq/L [facility] Bicarbonate (CO2) 15(L) 21 - 31 mEq/L [facility] Anion Gap 14 3 - 14 mEq/L [facility] 02/05/2025 3:00 AM EST 02/06/2025 1:12 PM EST Ed Carver MD LAB BLOOD ORDERABLES Final Result Performing Organization Address [facility] Co de Phone Number [facility] [address] [place] [address] * (ABNORMAL) Vancomycin, random (01/25/2025 10:09 AM EST) Vancomycin, Random 22.9(H) 15 - 20 mcg/mL See order comments 01/25/2025 10:0 9 AM EST 01/25/2025 10:09 AM EST Kisha Chavez MD LAB BLOOD ORDERABLES Final Re sult Performing Organization Address [facility] Co de Phone Number [place] See order comments [place] [address] * Collection Date (01/19/2025 3:00 AM EST) Collection Date See Comment [facility] Comment: Patient sample received may exceed specimen stability, based on the collection date electronically provided. When reviewing patient results, verify collection information and consider specimen stability before acting on any critical or panic results. 01/19/2025 3:00 AM EST Ed Carver MD LAB HISTORICA [id number] RESULTS Final Result Performing Organization Address [facility] Co de Phone Number [facility] [address] [place] [address] * (ABNORMAL) Hemoglobin (12/18/2024 3:00 AM EDT) Only the most recent of3 resultswithin the time period is included. Hgb 9.5(L) 11.2 - 15.7 g/dL [facility] Hemoglobin x 3 28.5(L) 33.6 - 47.1 g/dL [facility] 12/18/2024 3:00 AM EDT 12/19/2024 12:35 PM EDT us Ed Carver MD LAB BLOOD ORDERABLES Final Result Performing Organization Address [facility]/ZIP Co de Phone Number [facility] [address] [place] [address] * PTH, Intact (11/27/2024 3:00 AM EDT) PTH, Intact 550 160 - 721 pg/mL [facility] Comment: Suggested (KDIGO) ESRD maintenance range is two to nine times the upper normal limit (80.1 pg/mL) for the laboratory. 11/27/2024 3:00 AM EDT 11/28/2024 12:17 PM EDT us Ed Carvre MD LAB BLOOD ORDERABLES Final Result Performing Organization Address [facility] Co de Phone Number [facility] [address] [place] [address] * (ABNORMAL) Hemoglobin A1c (11/27/2024 3:00 AM EDT) Hemoglobin A1C 5.7(H) <5.7 % [facility] Comment: Methodology: Enzymatic Normal: <5.7% Prediabetes: 5.7-6.4% Diabetes: >6.4% Diabetic Glucose Control Evaluation: Therapeutic action suggested at >8.0% ADA recommends a glycemic goal of <7.0% 11/27/2024 3:00 AM EDT 11/28/2024 12:24 PM EDT us Ed Carver MD LAB BLOOD ORDERABLES Final Result Performing Organization Address [facility] Co de Phone Number [facility] [address] [place] [address] * (ABNORMAL) Lipid panel (11/27/2024 3:00 AM [...] BLOOD ORDERABLES Final Result Performing Organization Address [facility] Co de Phone Number [facility] [address] [place] [address] from Last 3 Months Insurance [facility] ([id number]) JOVON SOLOMON [phone] [facility] ([id number]) [facility] ([id number]) Care Teams Telephone Sex Worker Relationship Specialty Start Date End Date Alyssa Manzano DO [address] [place] [phone] PCP - General Family Medicine 03/02/21
--- OUTSIDE RECORDS SUMMARY | 2025-02-07 20:59 | XMS_ITS | Encounter Summary ---
Author Organization [employer] Address [address] [facility] 7t [place] [address] Care Team Providers Care Edger Hand Name Role Phone Genevieve Gtz MD Primary Care Pro vider Reason for Visit * Reason Onset Date Comments Medication Question 12/25/2024 Encounter Details Date Type Department Care Team ([facility] Contact Info) Description 12/25/2024 Telephone [facility] MEDICINE [address] [place], [place] [phone] Genevieve Gtz MD [address] [place], [place] [phone] Medication Question Social History Tobacco Use Types [...] Base) MCG/ACT inhaler To be sent to: [facility]/pharmacy #[id number] [place] [address] documented in this encounter Plan of Treatment Upcoming Encounters Date Type Department Care Team (Late st Contact Info) Description 02/11/2025 2:45 PM EST Clinical Support [facility] [address] [place] [address] Paola Thurston, KIRIT [address] [place] [address] documented as of this encounter Goals Goal [...] documented as of this encounter Care Teams Edger Hand Relationship Specialty Start Date End Date Genevieve Gtz MD [address] [place] [address] PCP - General Internal Medicine 10/12/22 documented as of this encounter
--- OUTSIDE RECORDS SUMMARY | 2025-02-07 20:59 | XMS_ITS | Encounter Summary ---
Author Organization [employer] Address [address] [facility] 7t [place] [address] Care Team Providers Care Assessor Name Role Phone Genevieve Gtz MD Primary Care Pro vider Reason for Visit * Reason Onset Date Comments Med Refill 12/15/2024 Encounter Details Date Type Department Care Team ([facility] Contact Info) Description 12/15/2024 Telephone [facility] MEDICINE [address] [place] [address] Genevieve Gtz MD [address] [place], [place] [phone] Med Refill Social History Tobacco Use Types [...] be sent to: [facility]/pharmacy #[id number] [place] [address] documented in this encounter Plan of Treatment Upcoming Encounters Date Type Department Care Team (Late st Contact Info) Description 02/11/2025 2:45 PM EST Clinical Support [facility] [address] [place] [address] Paola Thurston, KIRIT [address] [place] [address] documented as of this encounter Goals Goal [...] documented as of this encounter Care Teams Assessor Relationship Specialty Start Date End Date Genevieve Gtz MD [address] [place] [address] PCP - General Internal Medicine 10/12/22 documented as of this encounter
--- OUTSIDE RECORDS SUMMARY | 2025-02-07 20:59 | XMS_ITS | Encounter Summary ---
Author Organization [employer] Address [address] [facility] 7t [place] [address] Care Team Providers Care Agricultural Research Engineer Name Role Phone Genevieve Gtz MD Primary Care Pro vider Reason for Visit * Reason Onset Date Comments Med Refill 01/08/2023 Encounter Details Date Type Department Care Team ([facility] Contact Info) Description 01/08/2023 Telephone [facility] MEDICINE [address] [place], [place] [phone] Genevieve Gtz MD [address] [place], [place] [phone] Med Refill Social History Tobacco Use Types [...] [facility] [address] [place] [address] Paola Thurston, KIRIT [address] [place] [address] documented as of this encounter Visit Diagnoses Not on filedocumented in this encounter Additional Health Concerns Assessment Noted Time PHQ-9 Depression Total Score: 0 10/13/19 2:37 PM EDT documented as of this encounter Care Teams Agricultural Research Engineer Relationship Specialty Start Date End Date Genevieve Gtz MD [address] [place] [phone] PCP - General Internal Medicine 10/12/22 documented as of this encounter
--- OUTSIDE RECORDS SUMMARY | 2025-02-07 20:59 | XMS_ITS | Encounter Summary ---
Author Organization [facility] Address [address] [place] [phone] Phone Care Team Providers Care Communication Spec Name Role Phone Genevieve Gtz MD Primary Care Pro vider Encounter Details Date Type Department Care Team ([facility] Contact Info) Description 02/06/2025 Episode Documentatio n Update [facility] [address] [place] [phone] Social History Tobacco Use Types Packs/Day Years [...] Upcoming Encounters Date Type Department Care Team ([facility] Contact Info) Description 02/09/2025 Appointment [facility] [address] [place] [phone] Araceli Alvarez, RN [address] [place] [address] 02/11/2025 3:00 AM EST Appointment [facility] [address] [place] [phone] Araceli Alvarez, RN [address] [place] [address] 02/13/2025 4:30 AM EST Appointment [facility] [address] [place] [phone] Araceli Alvarez, RN [address] [place] [address] 02/16/2025 12:30 AM EST Appointment [facility] [address] [place] [phone] Araceli Alvarez, RN [address] [place] [address] 02/18/2025 4:30 AM EST Appointment [facility] [address] [place] [phone] Araceli Alvarez, RN [address] [place] [address] 02/20/2025 2:30 AM EST Appointment [facility] [address] [place] [phone] Araceli Alvarez, RN [address] [place] [address] 02/23/2025 1:00 AM EST Appointment [facility] [address] [place] [phone] Araceli Alvarez, RN [address] [place] [address] 02/25/2025 4:00 AM EST Appointment [facility] [address] [place] [phone] Araceli Alvarez, RN [address] [place] [address] 02/27/2025 3:00 AM EST Appointment [facility] [address] [place] [phone] Araceli Alvarez, RN [address] [place] [address] 03/02/2025 2:00 AM EST Appointment [facility] [address] [place] [phone] Araceli Alvarez, RN [address] [place] [address] 03/04/2025 3:00 AM EST Appointment [facility] [address] [place] [phone] Araceli Alvarez, RN [address] [place] [address] 03/06/2025 2:00 AM EST Appointment [facility] [address] [place] [phone] Araceli Alvarez, RN [address] [place] [address] 03/09/2025 2:00 AM EST Appointment [facility] [address] [place] [phone] Araceli Alvarez, RN [address] [place] [address] documented as of this encounter Visit Diagnoses Not on filedocumented in this encounter Care Teams Communication Spec Relationship Specialty Start Date End Date Genevieve Gtz MD [address] [place] [phone] PCP - General Internal Medicine 11/06/24 documented as of this encounter Additional Source Comments The information contained in this document represents components of the legal health record. It is not the complete legal health record.[facility]
--- OUTSIDE RECORDS SUMMARY | 2025-02-07 20:59 | XMS_ITS | Encounter Summary ---
Author Organization [employer] Address [address] [facility] 7t [place] [address] Care Team Providers Care Corporate Attorney Name Role Phone Genevieve Gtz MD Primary Care Pro vider Reason for Visit * Reason Onset Date Comments FYI 08/08/2024 Encounter Details Date Type Department Care Team ([facility] Contact Info) Description 08/08/2024 Telephone [facility] MEDICINE [address] [place], [place] [phone] Genevieve Gtz MD [address] [place], [place] [phone] FYI Social History Tobacco Use Types Packs/Day [...] 11:13 AM EDT [facility] for [facility] care.Patient declined services, stating she manages her wound care independently and obtains her own supplies. Helen just wanted FYI to PCP documented in this encounter Plan of Treatment Upcoming Encounters Date Type Department Care Team (Late st Contact Info) Description 02/11/2025 2:45 PM EST Clinical Support [facility]EDS [address] [place] [address] Paola Thurston, KIRIT [address] [place] [address] documented as of this encounter Goals Goal [...] as of this encounter Care Teams Corporate Attorney Relationship Specialty Start Date End Date Genevieve Gtz MD [address] [place] [phone] PCP - General Internal Medicine 10/12/22 documented as of this encounter
--- OUTSIDE RECORDS SUMMARY | 2025-02-07 20:59 | XMS_ITS | Encounter Summary ---
Author Organization [employer] Address [address] [facility] 7t [place] [address] Care Team Providers Care Food And Beverage Controller Name Role Phone Genevieve Gtz MD Primary Care Pro vider Encounter Details Date Type Department Care Team (Latest Contact Info) Description 02/05/2025 Travel Social History Tobacco Use Types Packs/Day [...] Description 02/11/2025 2:45 PM EST Clinical Support [facility] & PEDS [address] [place] [address] Paola Thurston, RN [address] [place] [address] documented as of this encounter Goals Goal Patient Goal Type Associated Problems Recent Progress Patient-Stated? Author Blood Pressure < 140/90 Blood Pressure 129/75(2024 9:08 AM EST) No Jaime Chilel Hemoglobin A1c < 8 Result Component 5.7( 9:45 AM EST) No Jamie Chilel documented as of this encounter Visit Diagnoses Not on filedocumented in this encounter Additional Health Concerns Assessment Noted Time PHQ-9 Depression Total Score: 0 10/23/19 24 2:23 PM EDT documented as of this encounter Care Teams Food And Beverage Controller Relationship Specialty Start Date End Date Genevieve Gtz MD [address] [place] [id number] PCP - General Internal Medicine 10/12/22 documented as of this encounter
--- OUTSIDE RECORDS SUMMARY | 2025-02-07 20:59 | XMS_ITS | Encounter Summary ---
Author Organization [facility] Address [address] [place] [phone] Phone Care Team Providers Care Crusher Tender Name Role Phone EmilyAlyssa hutchinson Primary Care Provider Unava ilable Encounter Details Date Type Department Care Team (Late st Contact Info) Description 09/23/2024 TCM in Dialysis Clinic [facility] [address] [phone] Placido Carver MD [address] [phone] Social History Tobacco Use Types [...] 09/23/2024 The patient was seen for a [id number] visit as part of Transitional Care Management services. Attending Coat Fitter: PLACIDO CARVER MD Dialysis Location: [facility] Schedule: Shift: 2 INTERACTIVE CONTACT [...] with the patient. VISIT DIAGNOSES CPT Code 02715 - High complexity, seen within 7 days of discharge. N18.6 End stage renal disease Signed by: PLACIDO CARVER MD on 09/23/2024 at 10:14:56 PM Transcribed by: PLACIDO CARVER MD on 09/23/2024 at 10:14:56 PM documented in this encounter Plan of Treatment Not on file documented as of this encounter Visit Diagnoses Not on filedocumented in this encounter Care Teams Crusher Tender Relationship Specialty Start Date End Date Alyssa Manzano DO [address] [place] [address] PCP - General Family Medicine 03/02/21 documented as of this encounter
--- OUTSIDE RECORDS SUMMARY | 2025-02-07 20:59 | XMS_ITS | Encounter Summary ---
Author Organization [employer] Address [address] [facility] 7t [place] [address] Care Team Providers Care Slab Off Mill Tender Name Role Phone Genevieve Gtz MD Primary Care Pro vider Encounter Details Date Type Department Care Team (Late st Contact Info) Description 01/21/2024 Telephone [facility] MEDICINE [address] [place], [place] [phone] Genevieve Gtz MD [address] [place], [place] [phone] Social History Tobacco Use Types Packs/Day Years [...] Oxycodone 5mg , pt requests a callback [phone] documented in this encounter Plan of Treatment Upcoming Encounters Date Type Department Care Team (Late st Contact Info) Description 02/11/2025 2:45 PM EST Clinical Support [facility] MED & PEDS [address] [place] [address] Paola Thurston, KIRIT 505 [place] [address] documented as of this encounter Goals Goal [...] documented as of this encounter Care Teams Slab Off Mill Tender Relationship Specialty Start Date End Date Genevieve Gtz MD [address] [place] [address] PCP - General Internal Medicine 10/12/22 documented as of this encounter
--- OUTSIDE RECORDS SUMMARY | 2025-02-07 20:59 | XMS_ITS | Encounter Summary ---
Author Organization [facility] Address [address] [facility] [address] [place] [phone] Phone Care Team Providers Care Pole Cutter Name Role Phone Genevieve Gtz MD Primary Care Pro vider Encounter Details Date Type Department Care Team ([facility] Contact Info) Description 02/02/2025 Home Health Resumption of Care Planning [facility] [address] [place] [phone] Shraddha Jefferson RN [address] [place] [address] [email or web address] Social History Tobacco Use Types Packs/Day Years [...] 02/09/2025 Appointment [facility] [address] [place] [phone] Araceli Alvarez, KIRIT [address] [place] [address] [email or web address] 02/11/2025 3:00 AM EST Appointment [facility] [address] [place] [phone] Araceli Alvarez, RN [address] [place] [address] [email or web address] 02/13/2025 4:30 AM EST Appointment [facility] [address] [place] [phone] Araceli Alvarez, KIRIT [address] [place] [address] [email or web address] 02/16/2025 12:30 AM EST Appointment [facility] [address] [place] [phone] Araceli Alvarez, RN [address] [place] [address] [email or web address] 02/18/2025 4:30 AM EST Appointment [facility] [address] [place] [phone] Araceli Alvarez, RN [address] [place] [address] [email or web address] 02/20/2025 2:30 AM EST Appointment [facility] [address] [place] [phone] Araceli Alvarez, RN [address] [place] [address] [email or web address] 02/23/2025 1:00 AM EST Appointment [facility] [address] [place] [address] Araceli Alvarez, RN [address] [place] [address] [email or web address] 02/25/2025 4:00 AM EST Appointment [facility] [address] [place] [phone] Araceli Alvarez, RN [address] [place] [address] 02/27/2025 3:00 AM EST Appointment [facility] [address] [place] [phone] Araceli Alvarez, RN [address] [place] [address] [email or web address] 03/02/2025 2:00 AM EST Appointment [facility] [address] [place] [phone] Araceli Alvarez, RN [address] [place] [address] [email or web address] 03/04/2025 3:00 AM EST Appointment [facility] [address] [place] [phone] Araceli Alvarez, RN [address] [place] [address] [email or web address] 03/06/2025 2:00 AM EST Appointment [facility] [address] [place] [phone] Araceli Alvarez, RN [address] [place] [address] [email or web address] 03/09/2025 2:00 AM EST Appointment [facility] [address] [place] [phone] Araceli Alvarez, RN [address] [place] [address] [email or web address] documented as of this encounter Visit Diagnoses Not on filedocumented in this encounter Care Teams Pole Cutter Relationship Specialty Start Date End Date Genevieve Gtz MD [address] [place] [address] PCP - General Internal Medicine 11/06/24 documented as of this encounter Additional Source Comments The information contained in this document represents components of the legal health record. It is not the complete legal health record.[facility]
--- OUTSIDE RECORDS SUMMARY | 2025-02-07 20:59 | XMS_ITS | Encounter Summary ---
Author Organization [employer] [facility] Address [address] [place] [address] 7t [place] [address] Care Team Providers Care Usability Strategist Name Role Phone Carolina Hsu Primary Care Provider Genevieve Wilson MD Primary Care Pro vider Encounter Details Date Type Department Care Team (Late Contact Info) Description 09/11/2022 Abstract [facility] MEDICINE [address] [place], [place] [phone] Carolina Hsu FNP Social History Tobacco Use [...] Department Care Team (Late Contact Info) Description 02/11/2025 2:45 PM EST Clinical Support [facility] MED & PEDS [address] [place] [address] Paola Thurston RN [address] [place] [address] documented as of this encounter Visit Diagnoses Not on filedocumented in this encounter Care Teams Usability Strategist Relationship Specialty Start Date End Date Carolina Hsu FNP PCP - General Family Medicine 01/16/22 10/11/22 Genevieve Gtz MD [address] [place] [address] PCP - General Internal Medicine 10/12/22 documented as of this encounter
--- OUTSIDE RECORDS SUMMARY | 2025-02-07 20:59 | XMS_ITS | Encounter Summary ---
Author Organization [employer] Address [address] [facility] 7t [place] [address] Care Team Providers Care Assistant Housekeeping Manager Name Role Phone Genevieve Gtz MD Primary Care Pro vider Reason for Visit * Reason Onset Date Comments Hospital Follow-up 01/09/2025 Encounter Details Date Type Department Care Team ([facility] Contact Info) Description 01/09/2025 Telephone [facility] MEDICINE [address] [place] [address] Genevieve Gtz MD [address] [place] [address] Hospital Follow-up Social History Tobacco Use Types [...] from pt retuning call Contact pt at [phone] * Telephone Encounter - Clarence Taylor - 01/09/2025 12:59 PM EST Tc from pt requesting a HDF appt. 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 *Send message to [place] Clinical Care Coordinators Please contact pt at [phone] documented in this encounter Plan of Treatment Upcoming Encounters Date Type Department Care Team ([facility] st Contact Info) Description 02/11/2025 2:45 PM EST Clinical Support [facility] CH[facility] MED & PEDS [address] [place] [address] Paola Thurston, KIRIT [address] [place] [address] documented as of this encounter Goals Goal [...] documented as of this encounter Care Teams Assistant Housekeeping Manager Relationship Specialty Start Date End Date Genevieve Gtz MD [address] [place] [address] PCP - General Internal Medicine 10/12/22 documented as of this encounter
--- OUTSIDE RECORDS SUMMARY | 2025-02-07 20:59 | XMS_ITS | Encounter Summary ---
Author Organization [employer] Address [address] [facility] 7t [place] [address] Care Team Providers Care Stone Processing Machine Operator Name Role Phone Genevieve Gtz MD Primary Care Pro vider Reason for Visit * Reason Onset Date Comments Med Refill 01/14/2024 Encounter Details Date Type Department Care Team ([facility] Contact Info) Description 01/14/2024 Telephone [facility] MEDICINE [address] [place] [address] Genevieve Gtz MD [address] [place], [place] [phone] Med Refill Social History Tobacco Use Types [...] any questions you can contact pt at [phone]. * Telephone Encounter - Noelle Rodrigues - 01/14/2024 11:29 AM EST TC from pt requesting medication refill. Medications needing refill : oxyCODONE (Roxicodone) 5 MG immediate release tablet To be sent to: [facility]/pharmacy [address] [place] [address] documented in this encounter Plan of Treatment Upcoming Encounters Date Type Department Care Team (Late st Contact Info) Description 02/11/2025 2:45 PM EST Clinical Support [facility] MED [facility] PEDS [address] [place] [address] Paola Thurston, KIRIT [address] [place] [address] documented as of this encounter Goals Goal [...] documented as of this encounter Care Teams Stone Processing Machine Operator Relationship Specialty Start Date End Date Genevieve Gtz MD [address] [place] [address] PCP - General Internal Medicine 10/12/22 documented as of this encounter
--- OUTSIDE RECORDS SUMMARY | 2025-02-07 20:59 | XMS_ITS | Clinical Summary ---
Author Organization [employer] Address [address] [facility] [address] [place] [address] Care Team Providers Care Logistics Center Manager Name Role Phone Genevieve Gtz MD [...] FOR WHEEZING 18 g 5 12/26/19 Active acetaminophen (Tylenol) 325 MG tablet Take 2 tablets by mouth every 4 (four) hours if needed for mild pain. Active valproic acid (Depakene) 250 MG capsule Take 2 capsules by mouth 3 times daily. 02/01/20 Active Eliquis 2.5 MG tablet Take 1 tablet by mouth 2 times daily. 02/01/20 Active insulin lispro (HumaLOG) 100 UNIT/ML injection 02/01/20 Active predniSONE (Deltasone) 10 MG tablet 02/01/20 Active amoxicillin-cla vulanate (Augmentin) 500-125 MG tablet 02/01/20 Active amLODIPine (Norvasc) 2.5 MG tablet Take 3 tablets by mouth Once per day. 02/01/20 Active levETIRAcetam (Keppra) 500 MG tablet Take 3 tablets by mouth 2 times daily. 02/01/20 Active oxyCODONE (Roxicodone) 10 MG immediate release tablet 02/01/20 Active OxyCONTIN 10 MG 12 hr tablet 02/01/20 Active acetaminophen (Tylenol) 325 MG tabletIndicatio ns:Acute [...] Pharmacy)) oxyCODONE (Roxicodone) 5 MG immediate release tablet Take 1 tablet by mouth every 8 (eight) hours if needed for severe pain. 025 Discontinued(M ed list cleanup (will not [...] organization. Date Type Department Care Team Description 02/05/2025 Travel 02/05/2025 Telephone [facility] [address] [place] [address] Paola Thurston RN 02/04/2025 Orders Only [facility] [address] [place] [address], [place] [address] Genevieve Gtz MD 02/04/[address] [address] Genevieve Gtz MD Med Refill 02/04/2025 Telephone [facility] [address] [place] [address] Paola Thurston RN Med Refill 02/04/[address] [address] Genevieve Gtz MD Med Refill 02/02/[address] [address] Genevieve Gtz MD 02/02/2025 Orders Only GENERIC EXTERNAL DATA DEPARTMENT Provider, Generic External Data 01/28/[address] [address] Genevieve Gtz MD provider out 01/27/[address] [address] Genevieve Gtz MD chartprep 01/21/2025 Orders Only [facility] External Provider, [facility] 01/14/[address] [address] Jackie Narvaez, account officer Question; Durable Medical Equipment 01/11/2025 Orders Only GENERIC EXTERNAL DATA DEPARTMENT Provider, Generic External Data 01/09/2025 Patient Outreach [address] [address] Genevieve Gtz MD Transition Of Care (Tcm) (HDF scheduled) 01/09/[address] [place] [address] Genevieve Gtz MD Hospital Follow-up 01/08/2025 Refill [facility] [address] [place] [address] Paola Thurston RN Chronic ulcer of left foot due to diabetes mellitus (HCC) 01/08/2025 Telephone [facility] [address] [place] [address] Genevieve Gtz MD Med Refill 12/31/2024 10:00 AM EST Telemedicine [facility] [address] [place] [address] Paola Thurston RN Long-term current use of opiate analgesic 12/31/2024 Travel 12/25/2024 Orders Only [facility] [address] [place] [phone] Genevieve Gtz MD 12/25/2024 Refill [facility] [address] [place] [address] Paola Thurston RN Chronic ulcer of left foot due to diabetes mellitus (HCC) 12/25/2024 Telephone [facility] [address] [place] [address] Genevieve Gtz MD Med Refill 12/25/2024 Telephone [facility] [address] [place] [address] Genevieve Gtz MD Medication Question 12/25/2024 Orders Only [facility] [address] [place] [address] Genevieve Gtz MD 12/23/2024 Telephone [facility] [address] [place] [address] Genevieve Gtz MD Durable Medical Equipment 12/22/2024 Orders Only GENERIC EXTERNAL DATA DEPARTMENT Provider, Generic External Data 12/21/2024 Orders Only GENERIC EXTERNAL DATA DEPARTMENT Provider, Generic External Data 12/19/2024 Orders Only GENERIC EXTERNAL DATA DEPARTMENT Provider, Generic External Data 12/15/2024 Refill [facility] [address] [place] [address] Paola Thurston RN Chronic ulcer of left foot due to diabetes mellitus (HCC) 12/15/2024 Telephone [facility] [address] [place] [address] Genevieve Gtz MD Med Refill 12/15/2024 Refill [facility] [address] [place] [address] Genevieve Gtz MD Benign essential hypertension 12/10/2024 Orders Only [facility] External Provider, [facility] 12/09/2024 Orders Only GENERIC EXTERNAL DATA DEPARTMENT Provider, Generic External Data 12/04/2024 Refill [facility] [address] [place] [address] Paola Thurston RN Chronic ulcer of left foot due to diabetes mellitus ([facility]) 12/04/2024 Telephone [facility] [address] [place] [phone] Genevieve Gtz MD Med Refill 12/01/2024 2:30 PM EDT Telemedicine [facility] [address] [place] [address] Paola Thurston, KIRIT Long-term current use of opiate analgesic 12/01/2024 Travel 11/25/2024 Telephone [facility] [address] [place] [address] Genevieve Gtz MD chart prep 11/21/2024 Orders Only [facility] [address] [place] [address] Genevieve Gtz MD Chronic ulcer of left foot due to diabetes mellitus ([facility]/HCC) 11/21/2024 Refill [facility] [address] [place] [address] Paola Thurston RN Chronic ulcer of left foot due to diabetes mellitus ([facility]/HCC) 11/21/2024 Telephone [facility] [address] [place] [address] Genevieve Gtz MD Med Refill 11/20/2024 Telephone [facility] [address] [place] [address] Paola Thurston RN 11/19/2024 3:15 PM EDT Clinical Support [facility] [address] [place] [address] Paola Thurston RN Long-term current use of opiate analgesic (Primary Dx) 11/19/2024 Orders Only [facility] [address] [place] [address] Genevieve Gtz MD 11/19/2024 Telephone [facility] [address] [place] [address] Paola Thurston RN 11/19/2024 Travel 11/11/2024 Telephone [facility] [address] [place] [address] Genevieve Gtz MD Medication Question 11/10/2024 Patient Outreach [facility] [address] [place] [address] Genevieve Gtz MD Pre-visit Planning (HDF scheduled. ) 11/10/2024 Telephone [facility] [address] [place] [phone] Genevieve Gtz MD telephone call from Last 3 Months Immunizations Immunization Administration [...] Upcoming Encounters Date Type Department Care Team ([facility] st Contact Info) Description 02/11/2025 2:45 PM EST Clinical Support [facility] [address] [place] [address] Paola Thurston, RN [address] [place] [address] Health Maintenance Due Date Last Done Comments [...] SLIDE REVIEW Routine 02/02/2025 12:57 AM EST LACTIC ACID Routine 02/02/2025 12:57 AM EST AMMONIA (P) Routine 02/02/2025 12:57 AM EST CBC WITH AUTO DIFFERENTIAL Routine 02/02/2025 12:57 AM EST XR KUB AND UPRIGHT 2 VIEWS Routine [...] Relevant to Health Maintenance Results * XR Femur 2+ Views Left (02/02/2025 8:30 AM EST) Anatomical Region Laterality Modality Lower Extremities, Femur Left Radiogr aphic Imaging 02/02/2025 8:30 AM EST Narrative 02/02/2025 8:51 AM EST [place] [address] XRay Report Signed Patient: Shereen Taylor MR#: [id number] : 1990 Acct:[id number] Age/Sex: 34 / F ADM Date: 02/02/25 Loc: [facility]: Padmini Marcelino MD Ordering Physician: Chasity Garzon [facility] Date of Service: 02/02/25 Procedure(s): XR femur LT 2V Accession Number(s): [id number] cc: Chasity Garzon [facility]; Genevieve Gtz MD Reason for Exam: [...] Shadi Lopez MD 02/02/2025 08:48 AM EST RP Dictated By: Shadi Mason MD Signed By: <Electronically signed by Shadi Narvaez MD in OV> 02/02/25847 DD/ 9 TD/TT: 02/02/25837 Electrical Sign Wirer: Procedure Note Donotuseinterpreter, Image - 02/02/[address] [address] XRay Report Signed Patient: Danna Taylor#: [id number] : 1990Acct:[id number] Age/Sex: 34 / FADM Date: 02/02/25 Loc: [facility]: Padmini Marcelino MD Ordering Physician: Chasity Garzon Date of Service: 02/02/25 Procedure(s): XR femur LT 2V Accession Number(s): [id number] cc: Chasity Garzon; Genevieve Gtz MD Reason [...] Shadi Lopez MD 02/02/2025 08:48 AM EST RP Dictated By: Shadi Mason MD Signed By: <Electronically signed by Shadi Narvaez MDin OV> 02/02/25847 DD/ 9 TD/TT: 02/02/25837 Electrical Sign Wirer: us [facility] External Provider IMG XR PROCEDURES Edited Result - Final * XR Knee 1-2 Views Left (02/02/2025 8:27 AM EST) Anatomical Region Laterality Modality Lower Extremities, Knee Left Radiogra phic Imaging 02/02/2025 8:27 AM EST Narrative 02/02/2025 8:46 AM EST [address] [address] XRay Report Signed Patient: Shereen Taylor MR#: [id number] : 1990 Acct:[id number] Age/Sex: 34 / F ADM Date: 02/02/25 Loc: [facility]: Padmini Marcelino MD Ordering Physician: Chasity Garzon Date of Service: 02/02/25 Procedure(s): XR knee LT 2V Accession Number(s): [id number] cc: Chasity GarzonNOMAN; Genevieve Gtz MD Reason for Exam: s/p [...] in OV> 02/02/25843 DD/ 6 TD/TT: 02/02/25837 Electrical Sign Wirer: Procedure Note Donotuseinterpreter, Image - 02/02/[address] [address] XRay Report Signed Patient: Danna Taylor#: [id number] : 1990Acct:[id number] Age/Sex: 34 / FADM Date: 02/02/25 Loc: [facility]: Padmini Marcelino MD Ordering Physician: Chasity Garzon Date of Service: 02/02/25 Procedure(s): XR knee LT 2V Accession Number(s): [id number] cc: Chasity GarzonNOMAN; Genevieve Gtz MD Reason for Exam: s/p [...] <Electronically signed by Shadi Narvaez MDin OV> 02/02/2544 DD/ 6 TD/TT: 02/02/25837 Electrical Sign Wirer: [facility] External Provider IMG XR PROCEDURES Edited Result - Final * (ABNORMAL) Glucose, Whole Blood (02/02/2025 3:31 AM EST) Only the most recent of2 resultswithin the time period is included. Glucose, Whole Blood 324(H) 60 - 115 mg/dL [facility] Comment:METER #: [id number] 02/02/2025 3:31 AM EST 02/02/2025 3:35 AM EST us Generic External Data Provider LAB BLOOD ORDERAB LES Final Result Performing Organization Address City/[facility]/ZIP Co de Phone Number [facility] [address] [place] [phone] * (ABNORMAL) Urinalysis, Complete, with Reflex to Culture (02/02/2025 2:37 AM EST) Only the most recent of2 resultswithin the time period is included. Color Urine Yellow [facility] Appearance Urine Cloudy [facility] PH 7.0 5.0 - 9.0 [facility] Glucose Urine UA 500(A) Negative mg/dL [facility] Urine Blood Negative Negative [facility] Specific [place] - Urine 1.020 1.005 - 1.025 [facility] Urine Protein 300 (3+)(A) Neg-Trace mg/dL [facility] Urine Ketones Negative Negative mg/dL [facility] Nitrite Urine Negative Negative [facility] Leukocyte Esterase Urine Small (1+)(A) Negative [facility] RBC Urine 0-2 0 - 2 /HPF [facility] Urine WBC 11-20(A) 0 - 5 /HPF [facility] Urine Squamous Epithelial Cell 11-20 0 - 2 /HPF [facility] Urine Bacteria 4+ None Seen [facility] Hyaline Casts, Urine 3-5 0 - 2 /LPF [facility] 02/02/2025 2:37 AM EST 02/02/2025 2:40 AM EST Narrative [facility] - 02/02/2025 3:11 AM EST Urine, Catheterized us Generic External Data Provider LAB URINE ORDERAB LES Final Result [facility] [address] [place] [address] [phone] * (ABNORMAL) VENOUS BLOOD GAS (02/02/2025 2:15 AM EST) Only the most recent of2 resultswithin the time period is included. VBG pH 7.37 7.32 - 7.43 [facility] Comment:METER #: [id number] additional_comment: [facility] VBG PCO2 34 mmHg [facility] Comment:METER #: [id number] additional_comment: [facility] VBG PO2 91 mmHg [facility] Comment:METER #: [id number] additional_comment: [facility] VBG Base Excess -4.2 mmol/L [facility] Comment:METER #: [id number] additional_comment: [facility] VBG HCO3 20(L) 22 - 26 mmol/L [facility] Comment:METER #: [id number] additional_comment: [facility] O2 Sat, Uday 97.0 % [facility] Comment:METER #: [id number] additional_comment: [facility] 02/02/2025 2:15 AM EST 02/02/2025 2:21 AM EST us Generic External Data Provider LAB BLOOD ORDERAB LES Final Result Performing Organization Address [facility] Co de Phone Number [facility] [address] [place] [address] [phone] * Beta-Hydroxybutyrate (02/02/2025 2:08 AM EST) Beta-Hydroxybut yrate 0.06 0.02 - 0.27 mmol/L [facility] 02/02/2025 2:08 AM EST 02/02/2025 2:16 AM EST us Generic External Data Provider LAB BLOOD ORDERAB LES Final Result Performing Organization Address [facility] Co de Phone Number [facility] [address] [place] [address] [phone] * Magnesium (02/02/2025 12:58 AM EST) Only the most recent of4 resultswithin the time period is included. Magnesium 2.5 1.6 - 2.6 mg/dL [facility] 02/02/2025 12:5 8 AM EST 02/02/2025 1:01 AM EST us Generic External Data Provider LAB BLOOD ORDERAB LES Final Result [facility] [address] [place] [address] [phone] * (ABNORMAL) Comprehensive Metabolic Panel (02/02/2025 12:58 AM EST) Only the most recent of4 resultswithin the time period is included. Sodium 127(L) 135 - 145 mmol/L [facility] Potassium 5.7(H) 3.3 - 5.1 mmol/L [facility] Chloride 93(L) 96 - 108 mmol/L [facility] Carbon Dioxide 18(L) 22 - 29 mmol/L [facility] Anion Gap 22(H) 12 - 20 [facility] Urea Nitrogen (BUN) 96(H) 9 - 16 mg/dL [facility] Creatinine, Serum 7.65(HH) 0.5 - 1.4 mg/dL [facility] Comment:Critical value for t est(s): CREAT Results called to rhett back by: TIERRA Person calling: KIMBERLEE Date: 02/02/25Time: 0153 Creatinine Clr Calc Pharmacy 11.3 [facility] Comment:Provided height and weight: 167.64 cm,87.2 kg.eGFR (calculated from the MDRD study equation) and eCrCl(calculated from the Cockcroft-Gault equation) are based ondifferent parameters and may not yield comparable results.If eCrCl result is absurd, please check patient'sheight/weight. Estimated Glomerular Filt Rate 6 [facility] Comment:Chronic Kidney Disea se: Estimated GFR < 60 mL/min/1.78n8Ziskhv Kidney Disease: Estimated GFR < 15 mL/min/1.73m2 Glucose 558(HH) 60 - 115 mg/dL [facility] Comment:Critical value for t est(s): GLU Results called to and readback by: TIERRA Person calling: PAULAWicho Date: 02/02/25 Time:0152 Calcium 7.2(L) 8.4 - 10.2 mg/dL [facility] Bilirubin, Total 0.6 0.0 - 1.0 mg/dL [facility] Aspartate Amino Transferase 11 5 - 31 U/L [facility] Alanine Aminotransferase 9 0 - 31 U/L [facility] Total Protein 6.4(L) 6.5 - 8.0 g/dL [facility] Albumin Level 3.7 3.5 - 5.0 g/dL [facility] Alkaline Phosphatase 134(H) 39 - 117 U/L [facility] 02/02/2025 12:5 8 AM EST 02/02/2025 1:01 AM EST us Generic External Data Provider LAB BLOOD ORDERAB LES Final Result Performing Organization Address [facility] de Phone Number [facility] [address] [place] [phone] * Slide Review (02/02/2025 12:57 AM EST) Only the most recent of2 resultswithin the time period is included. Slide Review VERIFIED [facility] 02/02/2025 12:5 7 AM EST 02/02/2025 1:01 AM EST us Generic External Data Provider LAB BLOOD ORDERAB LES Final Result Performing Organization Address [facility] Co de Phone Number [facility] [address] [place] [phone] * (ABNORMAL) CBC auto differential (02/02/2025 12:57 AM EST) Only the most recent of5 resultswithin the time period is included. White Blood Count 16.2(H) 4.8 - 10.8 X10*3/uL [facility] Red Blood Count 3.80(L) 4.20 - 5.50 X10*6/uL [facility] Hemoglobin 11.5(L) 12.0 - 16.0 g/dl [facility] Hematocrit 34.5(L) 37.0 - 47.0 % [facility] Mean Corpuscular Volume 90.8 80.0 - 98.0 fL [facility] Mean Corpuscular Hemoglobin 30.3 27.0 - 33.0 pg [facility] Mean Corpuscular HGB Conc 33.3 31.0 - 35.0 g/dl [facility] Red Cell Distribution Width 15.8 11.0 - 16.0 % [facility] Platelet Count 156(L) 160 - 400 X10*3/uL [facility] Mean Platelet Volume 12.6(H) 9.4 - 12.3 fL [facility] Neutrophils Percent Auto 94.0(H) 45 - 73 % [facility] Imm Gran Pct Auto 1.2(H) 0.0 - 0.4 % [facility] Lymphocytes Percent Auto 1.5(L) 20 - 40 % [facility] Monocytes Percent Auto 3.2 2 - 11 % [facility] Eosinophils Percent Auto 0.0 0 - 4 % [facility] Basophils Percent Auto 0.1 0 - 2 % [facility] NRBC Pct Auto 0.0 0.0 - 0.2 /100WBC [facility] Neutrophils Absolute Auto 15.2(H) 2.0 - 8.3 x10*3/uL [facility] Imm Gran Abs Auto 0.20(H) 0.00 - 0.03 X10*3/uL [facility] Lymphocytes Absolute Auto 0.2(L) 1.2 - 4.9 X10*3/uL [facility] Monocytes Absolute Auto 0.5 0.1 - 1.2 X10*3/uL [facility] Eosinophils Absolute Auto 0.0 0.0 - 0.4 X10*3/uL [facility] Basophils Absolute Auto 0.0 0.0 - 0.2 X10*3/uL [facility] NRBC Abs Auto 0.000 0.0 - 0.012 X10*3/uL [facility] 02/02/2025 12:5 7 AM EST 02/02/2025 1:01 AM EST us Generic External Data Provider LAB BLOOD ORDERAB LES Edited Result - Final Performing Organization Address [facility] de Phone Number [facility] [address] [place] [phone] * Lactic Acid (02/02/2025 12:57 AM EST) Only the most recent of3 resultswithin the time period is included. Lactic Acid 1.8 0.5 - 2.0 mmol/L [facility] 02/02/2025 12:5 7 AM EST 02/02/2025 1:01 AM EST us Generic External Data Provider LAB BLOOD ORDERAB LES Final Result Performing Organization Address [facility] de Phone Number [facility] [address] [place] [phone] * Ammonia, Plasma (02/02/2025 12:57 AM EST) Ammonia (P) 24 13 - 55 umol/L [facility] 02/02/2025 12:5 7 AM EST 02/02/2025 1:01 AM EST us Generic External Data Provider LAB BLOOD ORDERAB LES Final Result Performing Organization Address [facility] Co de Phone Number [facility] [address] [place] [phone] * XR KUB and Upright 2 Views (01/31/2025 2:21 PM EST) Anatomical Region Laterality Modality Radiographic Vandana ging 01/31/2025 2:21 PM EST Narrative 01/31/2025 2:22 PM EST [address] [address] XRay Report Signed Patient: Shereen Taylor MR#: [id number] : 1990 Acct:[id number] Age/Sex: 34 / F ADM Date: 01/21/25 Loc: HO.S3 383-[address]: Contreras Blanton MD Ordering Physician: Contreras Blanton MD Date of Service: 01/31/25 Procedure(s): XR KUB Accession Number(s): [id number] cc: Contreras Blanton MD; Genevieve Gtz MD [...] 01/31/25 1422 DD/ 1421 TD/TT: 01/31/25 1421 Electrical Sign Wirer: Procedure Note Donotuseinterpreter, Image - 01/31/[address] [address] XRay Report Signed Patient: Christian TaylorR#: [id number] : 1990Acct:[id number] Age/Sex: 34 / FADM Date: 01/21/25 Loc: HO.S3 383-[address]: Contreras Blanton MD Ordering Physician: Contreras Blanton MD Date of Service: 01/31/25 Procedure(s): XR KUB Accession Number(s): [id number] cc: Contreras Blanton MD; Genevieve Gtz MD [...] signed by Fernando Fowler MD in OV> 01/31/251421 DD/ 20 TD/TT: 01/31/251420 Electrical Sign Wirer: [facility] External Provider IMG XR PROCEDURES Edited Result - Final * XR Chest 1 View (01/11/2025 2:24 PM EST) Only the most recent of2 resultswithin the time period is included. Anatomical Region Laterality Modality Chest Radiographic Vandana ging 01/11/2025 2:24 PM EST Narrative 01/11/2025 2:25 PM EST [place] [address] XRay Report Signed Patient: Shereen Taylor MR#: [id number] : 1990 Acct:[id number] Age/Sex: 34 / F ADM Date: 01/11/25 Loc: HO.ED Attending Dr: Ordering Physician: Larissa Hartman Date of Service: 01/11/25 Procedure(s): XR chest 1V Accession Number(s): [id number] cc: Genevieve Gtz MD; Larissa Hartman Reason [...] in OV> 01/11/251424 DD/ 23 TD/TT: 01/11/251423 Electrical Sign Wirer: Procedure Note Donotuseinterpreter, Image - 01/11/[address] [address] XRay Report Signed Patient: Danna Taylor#: [id number] : 1990Acct:[id number] Age/Sex: 34 / FADM Date: 01/11/25 Loc: .ED Attending Dr: Ordering Physician: Larissa Hartman Date of Service: 01/11/25 Procedure(s): XR chest 1V Accession Number(s): [id number] cc: Genevieve Gtz MD; Larissa Hartman Reason [...] in OV> 01/11/251424 DD/ 23 TD/TT: 01/11/251423 Electrical Sign Wirer: us [facility] External Provider IMG XR PROCEDURES Final Result * (ABNORMAL) High Sensitivity Troponin I (01/11/2025 2:06 PM EST) Only the most recent of2 resultswithin the time period is included. TROPONIN I HIGH SENSITIVITY 81.7(HH) <3.5 - 17.0 ng/L [facility] Comment:Critical value for t est(s):TROP Results called to and readback by: EZIO Person calling: AMISH Date:01/11/2025 Time:14:45The [place] high sensitivity Troponin-I results should beused in conjunction with other diagnostic information suchas ECG, clinical observations and information, and patientsymptoms to aid in the diagnosis of [place]. 01/11/2025 2:06 PM EST 01/11/2025 2:08 PM EST us Generic External Data Provider LAB BLOOD ORDERAB LES Final Result Performing Organization Address [facility] Co de Phone Number [facility] [address] [place] [phone] * SARS-CoV-2 RNA, Influenza A/B, and RSV RNA, Ql NAAT (01/11/2025 2:06 PM EST) Influenza A PCR NEGATIVE Negative [facility] Influenza B PCR NEGATIVE Negative [facility] Resp Syncy Virus RNA Qual PCR NEGATIVE Negative [facility] SARS COV2 PCR NEGATIVE Negative [facility] Comment:All test results mus t [...] use by authorized laboratories.Testing performed on the [employer] GeneXpert utilizingreal-time RT-PCR.All SARS CoV2 and positive influenza A/B results arereported to [facility]. 01/11/2025 2:06 PM EST 01/11/2025 2:08 PM EST us Generic External Data Provider LAB MICROBIOLOGY - GENERAL ORDERABLES Final Result Performing Organization Address [facility]/ZIP Co de Phone Number [facility] [address] [place] [phone] * (ABNORMAL) Prothrombin Time-INR (01/11/2025 2:06 PM EST) Only the most recent of2 resultswithin the time period is included. Prothrombin Time 13.6(H) 11.2 - 13.5 SEC [facility] INTERNATIONAL NORM RATIO 1.1 0.9 - 1.1 [facility] Comment:INTERNATIONAL NORMAL IZED RATIO (INR) [...] ORDERAB LES Final Result Performing Organization Address City/[facility]/ZIP Co de Phone Number [facility] [address] [place] [address] [phone] * (ABNORMAL) Creatine Kinase, Total (01/11/2025 2:06 PM EST) Creatine Kinase Total 223(H) 26 - 140 U/L [facility] 01/11/2025 2:06 PM EST 01/11/2025 2:08 PM EST us Generic External Data Provider LAB BLOOD ORDERAB LES Final Result Performing Organization Address City/[facility]/ZIP Co de Phone Number [facility] [address] [place] [address] [phone] * (ABNORMAL) Hepatic Function Panel (01/11/2025 2:06 PM EST) Only the most recent of2 resultswithin the time period is included. Bilirubin, Total 0.5 0.0 - 1.0 mg/dL [facility] Bilirubin, Direct 0.2 0.0 - 0.5 mg/dL [facility] Aspartate Amino Transferase 47(H) 5 - 31 U/L [facility] Comment:Slight Hemolysis.Int erpret result with caution. Alanine Aminotransferase <6 0 - 31 U/L [facility] Total Protein 7.6 6.5 - 8.0 g/dL [facility] Albumin Level 3.7 3.5 - 5.0 g/dL [facility] Alkaline Phosphatase 273(H) 39 - 117 U/L [facility] 01/11/2025 2:06 PM EST 01/11/2025 2:08 PM EST us Generic External Data Provider LAB BLOOD ORDERAB LES Final Result [facility] [address] [place] [address] [phone] * (ABNORMAL) Basic Metabolic Panel (01/11/2025 2:06 PM EST) Sodium 132(L) 135 - 145 mmol/L [facility] Potassium 6.5(HH) 3.3 - 5.1 mmol/L [facility] Comment:Slight Hemolysis.Int erpret result with caution.Critical value for test(s):K Results called to and readback by: EZIO Person calling:KATERINate:01/11/2025 Time:14:45 Chloride 94(L) 96 - 108 mmol/L [facility] Carbon Dioxide 18(L) 22 - 29 mmol/L [facility] Anion Gap 27(H) 12 - 20 [facility] Urea Nitrogen (BUN) 82(H) 9 - 16 mg/dL [facility] Creatinine, Serum 13.22(HH) 0.5 - 1.4 mg/dL [facility] Comment:Critical value for t est(s): CREAT Results called to rhett back by:EZIO Person calling:AMISH Date:01/11/2025 Time:14:45 Creatinine Clr Calc Pharmacy 6.2 [facility] Comment:Provided height and weight: 167.64 cm,80 kg.eGFR (calculated from the MDRD study equation) and eCrCl(calculated from the Cockcroft-Gault equation) are based ondifferent parameters and may not yield comparable results.If eCrCl result is absurd, please check patient'sheight/weight. Estimated Glomerular Filt Rate 3 [facility] Comment:Chronic Kidney Disea se: Estimated GFR < 60 mL/min/1.53w8Garwnj Kidney Disease: Estimated GFR < 15 mL/min/1.73m2 Glucose 87 60 - 115 mg/dL [facility] Calcium 8.7 8.4 - 10.2 mg/dL [facility] 01/11/2025 2:06 PM EST 01/11/2025 2:08 PM EST us Generic External Data Provider LAB BLOOD ORDERAB LES Final Result Performing Organization Address City/State/[facility] Co de Phone Number [facility] [address] [place] [phone] * CT Cervical Spine w/o Contrast (12/22/2024 10:37 AM EDT) Anatomical Region Laterality Modality Spine, C-spine Computed Tomogra phy 12/22/2024 10:3 7 AM EDT Narrative 12/22/2024 11:17 AM EDT [address] [address] [address] Scan Report Signed Patient: Shereen Taylor MR#: [id number] : 1990 Acct:[id number] Age/Sex: 34 / F ADM Date: 12/22/24 Loc: HO.ED Attending Dr: Ordering Physician: Urszula Garcia Date of Service: 12/22/24 Procedure(s): CT cervical spine wo IV con Accession Number(s): [id number] cc: Genevieve Gtz MD; Urszula Garcia Report Number: [id number]: Total DLP = 508.00 mGy-cm Reason for [...] Alberto Guevara MD 12/22/2024 11:13 AM EDT Dictated By: Juan Alberto Guevara MD Signed By: <Electronically signed by Juan Alberto Guevara MD in OV> 12/22/24 1113 DD/ 1037 TD/TT: 12/22/24 1051 Electrical Sign Wirer: Procedure Note Donotuseinterpreter, Image - 12/22/[address] [place] [address] [address] Scan Report Signed Patient: Danna Taylor#: [id number] : 1990Acct:[id number] Age/Sex: 34 / FADM Date: 12/22/24 Loc: HO.ED Attending Dr: Ordering Physician: Urszula Garcia Date of Service: 12/22/24 Procedure(s): CT cervical spine wo IV con Accession Number(s): [id number] cc: Genevieve Gtz MD; Urszula Garcia Report Number: [id number]: Total DLP = 508.00 mGy-cm Reason for [...] Alberto Guevara MD 12/22/2024 11:13 AM EDT Dictated By: Juan Albreto Guevara MD Signed By: <Electronically signed by Juan Alberto Guevara MD in OV> 12/22/24 1113 DD/ 1037 TD/TT: 12/22/24 1051 Electrical Sign Wirer: [facility] External Provider IMG CT PROCEDURES Edited Result - Final * CT Head w/o Contrast (12/22/2024 10:37 AM EDT) Only the most recent of2 resultswithin the time period is included. Anatomical Region Laterality Modality Head, Neck Computed Tomogra phy 12/22/2024 10:3 7 AM EDT Narrative 12/22/2024 11:08 AM EDT [address] [address] [address] Scan Report Signed Patient: Shereen Taylor MR#: [id number] : 1990 Acct:[id number] Age/Sex: 34 / F ADM Date: 12/22/24 Loc: HO.ED Attending Dr: Ordering Physician: Urszula Garcia Date of Service: 12/22/24 Procedure(s): CT head/brain wo IV con Accession Number(s): [id number] cc: Genevieve Gtz MD; Urszula Garcia Report Number: [id number]: Total DLP = 706.00 mGy-cm Reason for [...] 12/22/24 1105 DD/ 1037 TD/TT: 12/22/24 1051 Electrical Sign Wirer: Procedure Note Donotuseinterpreter, Image - 12/22/[address] [address] [address] Scan Report Signed Patient: Danna Taylor#: [id number] : 1990Acct:[id number] Age/Sex: 34 / FADM Date: 12/22/24 Loc: HO.ED Attending Dr: Ordering Physician: Urszula Garcia Date of Service: 12/22/24 Procedure(s): CT head/brain wo IV con Accession Number(s): [id number] cc: Genevieve Gtz MD; Urszula Garcia Report Number: [id number]: Total DLP = 706.00 mGy-cm Reason for [...] 12/22/24 1105 DD/ 1037 TD/TT: 12/22/24 1051 Electrical Sign Wirer: [facility] External Provider IMG CT PROCEDURES Edited Result - Final * XR Foot 3+ Views Left (12/22/2024 9:35 AM EDT) Anatomical Region Laterality Modality Lower Extremities, Foot Left [facility] 12/22/2024 9:35 AM EDT Narrative 12/22/2024 10:00 AM EDT [address] [address] XRay Report Signed Patient: Shereen Taylor MR#: [id number] : 1990 Acct:[id number] Age/Sex: 34 / F ADM Date: 12/22/24 Loc: HO.ED Attending Dr: Ordering Physician: Urszula Garcia Date of Service: 12/22/24 Procedure(s): XR foot LT min 3V Accession Number(s): [id number] cc: Genevieve Gtz MD; Urszula Garcia Reason [...] signed by Babak Cloud MD in OV> 12/22/24 0957 DD/ 4 TD/TT: 12/22/24939 Electrical Sign Wirer: CRISTI Procedure Note Donotuseinterpreter, Image - 12/22/[address] [address] XRay Report Signed Patient: Danna Taylor#: [id number] : 1990Acct:[id number] Age/Sex: 34 / FADM Date: 12/22/24 Loc: HO.ED Attending Dr: Ordering Physician: Urszula Garcia Date of Service: 12/22/24 Procedure(s): XR foot LT min 3V Accession Number(s): [id number] cc: Genevieve Gtz MD; Urszula Garcia Reason [...] MD in OV> 12/22/2457 DD/ TD/TT: 12/22/24939 Electrical Sign Wirer: HB [facility] External Provider IMG XR PROCEDURES Edited Result - Final * Hold Red (12/22/2024 9:22 AM EDT) Hold Red See Note [facility] Comment:Specimen held untest ed for 24 hours; Call to requestChemistry testing. 12/22/2024 9:22 AM EDT 12/22/2024 9:49 AM EDT Generic External Data Provider LAB BLOOD ORDERAB LES Final Result Performing Organization Address City/State/[facility] Co de Phone Number [facility] [address] [place] [address] [phone] * CT Chest w/o Contrast (12/21/2024 3:02 PM EDT) Anatomical Region Laterality Modality Body, Chest Computed Tomogra phy 12/21/2024 3:02 PM EDT Narrative 12/21/2024 3:04 PM EDT [place] [address] [address] Scan Report Signed Patient: Shereen Taylor MR#: [id number] : 1990 Acct:[id number] Age/Sex: 34 / F ADM Date: 12/21/24 Loc: .ED Attending Dr: Ordering Physician: Bonilla Villareal MD Date of Service: 12/21/24 Procedure(s): CT chest wo IV con Accession Number(s): [id number] cc: Bonilla Villareal MD; Genevieve Gtz MD Report Number: [id number]: Total DLP = 0.00 mGy-cm Reason for [...] 12/21/24 1503 DD/ 1502 TD/TT: 12/21/24 1502 Electrical Sign Wirer: Procedure Note Donotuseinterpreter, Image - 12/21/[address] [place] [address] [address] Scan Report Signed Patient: Danna Taylor#: [id number] : 1990Acct:[id number] Age/Sex: 34 / FADM Date: 12/21/24 Loc: HO.ED Attending Dr: Ordering Physician: Bonilla Villareal MD Date of Service: 12/21/24 Procedure(s): CT chest wo IV con Accession Number(s): [id number] cc: Bonilla Villareal MD; Genevieve Gtz MD Report Number: [id number]: Total DLP = 0.00 mGy-cm Reason for [...] 12/21/24 1503 DD/ 1502 TD/TT: 12/21/24 1502 Electrical Sign Wirer: us [facility] External Provider IMG CT PROCEDURES Edited Result - Final * CT Abdomen Pelvis w/o Contrast (12/21/2024 3:02 PM EDT) Anatomical Region Laterality Modality Body, Pelvis, Abdomen Computed T omography 12/21/2024 3:02 PM EDT Narrative 12/21/2024 3:04 PM EDT [place] [address] CT Scan Report Signed Patient: Shereen Taylor MR#: [id number] : 1990 Acct:[id number] Age/Sex: 34 / F ADM Date: 12/21/24 Loc: HO.ED Attending Dr: Ordering Physician: Bonilla Villareal MD Date of Service: 12/21/24 Procedure(s): CT abdomen pelvis wo IV con Accession Number(s): [id number] cc: Bonilla Villareal MD; Genevieve Gtz MD Report Number: [id number]: Total DLP = 2186.00 mGy-cm Reason for [...] 12/21/24 1503 DD/ 1502 TD/TT: 12/21/24 150 Electrical Sign Wirer: Procedure Note Donotuseinterpreter, Image - 12/21/[address] [address] [address] Scan Report Signed Patient: Danna Taylor#: [id number] : 1990Acct:[id number] Age/Sex: 34 / FADM Date: 12/21/24 Loc: HO.ED Attending Dr: Ordering Physician: Bonilla Villareal MD Date of Service: 12/21/24 Procedure(s): CT abdomen pelvis wo IV con Accession Number(s): [id number] cc: Bonilla Villareal MD; Genevieve Gtz MD Report Number: [id number]: Total DLP = 2186.00 mGy-cm Reason for [...] 12/21/24 1503 DD/ 150 TD/TT: 12/21/24 150 Electrical Sign Wirer: [facility] External Provider IMG CT PROCEDURES Edited Result - Final * TSH (12/21/2024 12:49 PM EDT) Thyroid Stimulating Hormone 1.18 0.32 - 4.0 uIU/mL [facility] Comment:TSH 3rd Generation ( [facility]) 12/21/2024 12:4 9 PM EDT 12/21/2024 12:51 PM EDT Generic External Data Provider LAB BLOOD ORDERAB LES Final Result Performing Organization Address [facility] Co de Phone Number [facility] [address] [place] [address] [phone] * Hold Green Gel (12/19/2024 1:42 PM EDT) Hold Green Gel See Note [facility] Comment:Specimen held untest ed for 24 hours; Call to requestChemistry testing. 12/19/2024 1:42 PM EDT 12/19/2024 1:49 PM EDT Generic External Data Provider HISTORICAL/NON OR DERABLE LABS Final Result Performing Organization Address [facility] Co de Phone Number [facility] [address] [place] [address] [phone] * Blood Culture (Second) (12/19/2024 1:42 PM EDT) Blood Venous blood specimen / Unknown 12/19/2024 1:42 PM EDT 12/19/2024 1:47 PM EDT Comment:Blood Narrative [facility] - 12/24/2024 3:47 PM EDT Blood Culture (Second) No growth after 5 days. Specimen Source: Blood Generic External Data Provider LAB MICROBIOLOGY - GENERAL ORDERABLES Final Result Performing Organization Address [facility] Co de Phone Number [facility] [address] [place] [address] [phone] * Blood Culture (First) (12/19/2024 1:33 PM EDT) Blood Venous blood specimen / Unknown 12/19/2024 1:33 PM EDT 12/19/2024 1:36 PM EDT Comment:Blood Narrative [facility] - 12/24/2024 3:36 PM EDT Blood Culture (First) No growth after 5 days. Specimen Source: Blood Generic External Data Provider LAB MICROBIOLOGY - GENERAL ORDERABLES Final Result Performing Organization Address [facility]/ZIP Co de Phone Number [facility] [address] [place] [address] [phone] * Partial Thromboplastin Time, Activated (APTT) (12/19/2024 1:33 PM EDT) Partial Thromboplastin Time 34.0 26.7 - 34.1 SEC [facility] 12/19/2024 1:33 PM EDT 12/19/2024 1:36 PM EDT Generic External Data Provider LAB BLOOD ORDERAB LES Final Result Performing Organization Address [facility] Co de Phone Number [facility] [address] [place] [address] [phone] * (ABNORMAL) Sed Rate by Modified Axelren (12/19/2024 1:33 PM EDT) Only the most recent of2 resultswithin the time period is included. Pathologist [facility] Erythrocyte Sedimentation Rate 54(H) 0 - 20 MM/HR [facility] Comment:Patients with polycy themia and many hemoglobin abnormalitiesmay have depressed sed rates whereas patients with anemiamay have elevated sed rates. 12/19/2024 1:33 PM EDT 12/19/2024 1:36 PM EDT Generic External Data Provider LAB BLOOD ORDERAB LES Final Result Performing Organization Address [facility] Co de Phone Number [facility] [address] [place] [address] [phone] * (ABNORMAL) C-reactive Protein (12/19/2024 1:33 PM EDT) C Reactive Protein 0.84(H) < or = 0.50 mg/dL [facility] 12/19/2024 1:33 PM EDT 12/19/2024 1:36 PM EDT us Generic External Data Provider LAB BLOOD ORDERAB LES Final Result Performing Organization Address [facility] de Phone Number [facility] [address] [place] [phone] * Lipase (12/19/2024 1:33 PM EDT) Only the most recent of2 resultswithin the time period is included. Lipase 37 8 - 78 U/L [facility] 12/19/2024 1:33 PM EDT 12/19/2024 1:36 PM EDT Generic External Data Provider LAB BLOOD ORDERAB LES Final Result Performing Organization Address [facility] de Phone Number [facility] [address] [place] [phone] * MR Foot w and w/o Contrast Left (12/11/2024 12:21 PM EDT) Anatomical Region Laterality Modality Lower Extremities, Foot Left Magnetic Resonance 12/11/2024 12:2 1 PM EDT Narrative 12/11/2024 2:14 PM EDT [address] [address] Magnetic Resonance Report Signed Patient: Shereen Taylor MR#: [id number] : 1990 Acct:[id number] Age/Sex: 34 / F ADM Date: 12/10/24 Loc: HO.S3 361-[address]: Ellen Frankel MD Ordering Physician: Lele Allan MD Date of Service: 12/11/24 Procedure(s): foot LT wo/w con Accession Number(s): [id number] cc: Lele Allan MD; Genevieve Gtz MD [...] 12/11/24 1411 DD/ 1221 TD/TT: 12/11/24 1310 Electrical Sign Wirer: CRISTI Procedure Note Donotuseinterpreter, Image - 12/11/2024 [place] [address] Magnetic Resonance Report Signed Patient: Danna Taylor#: [id number] : 1990Acct:[id number] Age/Sex: 34 / FADM Date: 12/10/24 Loc: .S3 361-[address]: Ellen Frankel MD Ordering Physician: Lele Allan MD Date of Service: 12/11/24 Procedure(s): MR foot LT wo/w con Accession Number(s): [id number] cc: Lele Allan MD; Genevieve Gtz MD [...] 12/11/24 1411 DD/ 1221 TD/TT: 12/11/24 1310 Electrical Sign Wirer: CRISTI [facility] External Provider IMG MRI PROCEDURES Final Result * XR Foot 1-2 Views Left (12/09/2024 8:38 PM EDT) Anatomical Region Laterality Modality Lower Extremities, Foot Left Radiogra phic Imaging 12/09/2024 8:38 PM EDT Narrative 12/09/2024 8:42 PM EDT [address] [address] XRay Report Signed Patient: Shereen Taylor MR#: [id number] : 1990 Acct:[id number] Age/Sex: 34 / F ADM Date: 12/09/24 Loc: HO.ED Attending Dr: Ordering Physician: Generic ED Physician Date of Service: 12/09/24 Procedure(s): XR foot LT 2V Accession Number(s): [id number] cc: Generic ED Physician; Genevieve Gtz MD [...] in OV> 12/09/242039 DD/ 37 TD/TT: 12/09/242037 Electrical Sign Wirer: Procedure Note Donotuseinterpreter, Image - 12/09/2024 [place] [address] XRay Report Signed Patient: Danna Taylor#: [id number] : 1990Acct:[id number] Age/Sex: 34 / FADM Date: 12/09/24 Loc: HO.ED Attending Dr: Ordering Physician: Generic ED Physician Date of Service: 12/09/24 Procedure(s): XR foot LT 2V Accession Number(s): [id number] cc: Generic ED Physician; Genevieve Gtz MD [...] in OV> 12/09/242039 DD/ 37 TD/TT: 12/09/242037 Electrical Sign Wirer: [facility] External Provider IMG XR PROCEDURES Final Result * Drug Toxicology Monitoring Base Panel, w/Confirmation, Oral Fluid (11/19/2024 12:00 AM EDT) Drug Tox Panel with Confirmation SEE NOTE [facility] Comment: Test Ordered Result Cutoff [...] Negative 5.0 ng/mLFor additional information, please refer tohttp://education.[facility].com/faq/XQZ638 (This linkis being provided for informational/ educational purposesonly.) This drug testing is for medical treatment only.Analysis was performed as non-forensic testing and theseresults should be used only by healthcare providers torender diagnosis or treatment, or to monitor progress ofmedical conditions. For assistance with interpreting thesedrug results, please contact a [facility] ToxicologySpecialist: [phone] ( ), M-F, 8am-6pmEST. These tests were developed and their analyticalperformance characteristics have beendetermined by [employer]. They have not been clearedor a pproved by the FDA. These assays have been validatedpursuant to the CLIA regulations and are used for clinicalpurposes. PERFO RMING SITE:[employer]/[facility], [address] [place] [phone] Tie Sawyer: KORIN TRUONG MD,PHD, CLIA: [id number] 11/19/2024 11/19/2024 us Genevieve Casillas MD LAB BODY FLUIDS A ND STOOLS ORDERABLES Final Result [facility] [address] [place] [phone] * Hepatitis C Antibody with Reflex to HCV, RNA, Quantitative, Real-Time PCR (03/07/2024 9:45 AM EST) Hepatitis C Antibody Nonreactive Nonreactive [facility] Comment:Antibodies to HCV no t detected; does not exclude early acuteHCV infection. Blood Venous blood specimen / Unknown 03/07/2024 9:45 AM EST 03/07/2024 11:34 AM EST us Genevieve Casillas MD LAB BLOOD ORDERAB LES Final Result Performing Organization Address City/[facility] Co de Phone Number [facility] [address] [place] [phone] * HIV-1/2 Antigen and Antibodies, Fourth Generation, with Reflexes (03/07/2024 9:45 AM EST) HIV AB/AG Nonreactive Nonreactive [facility] Comment:HIV-1 p24 Ag and/or HIV-1/HIV-2 Ab not detected.A test result that is nonreactive does not exclude thepossibility of exposure to or infection with HIV-1 and/orHIV-2. Nonreactive results in this assay for individualswith prior exposure to HIV-1 and/or HIV-2 may be due toantigen and antibody levels that are below the limit ofdetection of this assay.The [employer] HIV Ag/Ab Combo assay result andsupplemental assay results should be interpreted inconjunction with the patient's clinical presentation,history and other laboratory results. If the results areinconsistent with clinical evidence, additional testing issuggested to confirm the result. Blood Venous blood specimen / Unknown 03/07/2024 9:45 AM EST 03/07/2024 11:34 AM EST us Genevieve Casillas MD LAB BLOOD ORDERAB LES Final Result Performing Organization Address City/[facility]/ZIP Co de Phone Number [facility] [address] [place] [phone] * Hemoglobin A1c (03/07/2024 9:45 AM EST) Hemoglobin A1c 5.7 <6.0 % [facility] Comment:Hemoglobin A1C Refer ence Range Adults: 4.8 - 6.0 % Non diabetic: < 6.0 % Goal: < 7.0 %Additional Action Suggested: > 8.0 %Note: Hemoglobin A1c results are invalid for patients with abnormal amounts of HbF. Blood transfusions may impact the HbA1c concentration in the patient sample. Estimated Average Glucose 117 mg/dL [facility] Comment:eAG = Estimated ave rage glucose which is %A1C expressed asaverage glucose, using the formula of the O1H-DeyqecePsxgdud Glucose study (ADAG), Diabetes Care, Vol.31,#8,Sep. 2007 Blood Venous blood specimen / Unknown 03/07/2024 9:45 AM EST 03/07/2024 11:34 AM EST us Genevieve Casillas MD LAB BLOOD ORDERAB LES Final Result [facility] [address] [place] [address] [phone] * (ABNORMAL) Lipid Panel, Standard (03/07/2024 9:45 AM EST) Triglycerides 36 <150 mg/dL [facility] Comment:Desirable Triglyceri de: less than 150 mg/dLBorderline High Triglyceride 150-199 mg/dLHigh Triglyceride: 200-499 mg/dLVery High Triglyceride: greater than or equal to 5OO mg/dL Cholesterol 107 <200 mg/dL [facility] Comment:Desirable Cholestero l: less than 200 mg/dLBorderline High Cholesterol: 200-239 mg/dLHigh Cholesterol: greater than 239 mg/dL LDL Cholesterol Calculated 65 <100 mg/dL [facility] Comment:Desirable LDL: less than 100 [...] MD LAB BLOOD ORDERAB LES Final Result [facility] [address] [place] [address] [phone] from Last 3 Months or Most Recently Relevant to Health Maintenance Insurance [facility] < [address] [place] [phone] Care Teams [employer] Manager Relationship Specialty Start Date End Date Genevieve Gtz MD [address] [place] [phone] PCP - General Internal Medicine 10/12/22
--- OUTSIDE RECORDS SUMMARY | 2025-02-07 20:59 | XMS_ITS | Encounter Summary ---
Author Organization [facility] Address [address] [place] [phone] Phone Care Team Providers Care Channel Lip Wetter Name Role Phone EmilyAlyssa hutchinson Primary Care Provider Unava ilable Encounter Details Date Type Department Care Team (Late st Contact Info) Description 11/22/2024 TCM in Dialysis Clinic [facility] [address] [address] Placido Carver MD [address] [address] Social History Tobacco Use Types [...] 11/22/2024 The patient was seen for a vvrj-qc-ycew visit as part of Transitional Care Management services. Attending Yarding Engineer: PLACIDO CARVER MD [facility] [...] with the patient. VISIT DIAGNOSES CPT Code 11009 - High complexity, seen 8-14 days post discharge or moderate complexity, seen [id number] days of discharge. N18.6 End stage renal disease Signed by: PLACIDO CARVER MD on 11/22/2024 at 01:18:26 PM Transcribed by: PLACIDO CARVER MD on 11/22/2024 at 01:18:26 PM documented in this encounter Plan of Treatment Not on file documented as of this encounter Visit Diagnoses Not on filedocumented in this encounter Care Teams Channel Lip Wetter Relationship Specialty Start Date End Date Alyssa Manzano DO 230 [place] [address] PCP - General Family Medicine 03/02/21 documented as of this encounter
--- OUTSIDE RECORDS SUMMARY | 2025-02-07 20:59 | XMS_ITS | Encounter Summary ---
Author Organization [employer] [facility] Address [address] [place] [address] 7t [place] [address] Care Team Providers Care Founder & Ceo Name Role Phone Carolina Hsu Primary Care Provider Genevieve Wilson MD Primary Care Pro vider Encounter Details Date Type Department Care Team (Late Contact Info) Description 09/11/2022 Abstract [facility] 230 [place], [place] [phone] Carolina Hsu FNP Social History Tobacco Use [...] Description 02/11/2025 2:45 PM EST Clinical Support [facility] MED [facility]EDS 505 [place] [address] Paola Thurston RN 505 [place] [address] documented as of this encounter Visit Diagnoses Not on filedocumented in this encounter Care Teams Founder & Ceo Relationship Specialty Start Date End Date Carolina Hsu FNP PCP - General Family Medicine 01/16/22 10/11/22 Genevieve Gtz MD 230 [place] [address] PCP - General Internal Medicine 10/12/22 documented as of this encounter
--- OUTSIDE RECORDS SUMMARY | 2025-02-07 20:59 | XMS_ITS | Encounter Summary ---
Author Organization [employer] [facility] Address [address] [place] [address] 7t [place] [address] Care Team Providers Care Technical Editor Name Role Phone Carolina Hsu Primary Care Provider Genevieve Wilson MD Primary Care Pro vider Encounter Details Date Type Department Care Team (Late Contact Info) Description 09/11/2022 Abstract [facility] MED[facility]INE 230 [place], [place] [phone] Carolina Hsu FNP Social History Tobacco Use [...] Description 02/11/2025 2:45 PM EST Clinical Support [facility]S 505 [place] [address] Paola Thurston RN 505 [place] [address] documented as of this encounter Visit Diagnoses Not on filedocumented in this encounter Care Teams Technical Editor Relationship Specialty Start Date End Date Carolina Hsu FNP PCP - General Family Medicine 01/16/22 10/11/22 Genevieve Gtz MD 230 [place] [address] PCP - General Internal Medicine 10/12/22 documented as of this encounter
--- OUTSIDE RECORDS SUMMARY | 2025-02-07 20:59 | XMS_ITS | Encounter Summary ---
Author Organization [employer] Address [address] [facility] 7t [place] [address] Care Team Providers Care Mine Wedge Sawyer Name Role Phone Genevieve Gtz MD Primary Care Pro vider Reason for Visit * Reason Onset Date Comments Med Refill 12/19/2023 Encounter Details Date Type Department Care Team ([facility] Contact Info) Description 12/19/2023 Telephone [facility] MED[facility]INE 230 [place] [address] Genevieve Gtz MD 230 [place], [place] [phone] Med Refill Social History Tobacco Use Types [...] be sent to: [facility]/pharmacy #[id number] [place] [address] documented in this encounter Plan of Treatment Upcoming Encounters Date Type Department Care Team (Late st Contact Info) Description 02/11/2025 2:45 PM EST Clinical Support [facility] 505 [place] [address] Paola Thurston, KIRIT 505 [place] [address] documented as of this encounter Goals Goal [...] documented as of this encounter Care Teams Mine Wedge Sawyer Relationship Specialty Start Date End Date Genevieve Gtz MD [address] [place] [address] PCP - General Internal Medicine 10/12/22 documented as of this encounter
--- OUTSIDE RECORDS SUMMARY | 2025-02-07 20:59 | XMS_ITS | Encounter Summary ---
Author Organization [employer] Address [address] [place] [address] 7t [place] [address] Care Team Providers Care Bridge Construction Inspector Name Role Phone Genevieve Gtz MD Primary Care Pro vider Reason for Visit * Reason Onset Date Comments Med Refill 10/26/2022 Encounter Details Date Type Department Care Team ([facility] st Contact Info) Description 10/26/2022 Telephone [facility] 230 [place], [place] [phone] Genevieve Gtz MD 230 [place], [place] [phone] Med Refill Social History Tobacco Use Types [...] oxycodone 5 mg. Please send to [facility]/pharmacy #[id number] - [place] - [address] Cool documented in this encounter Plan of Treatment Upcoming Encounters Date Type Department Care Team (Late st Contact Info) Description 02/11/2025 2:45 PM EST Clinical Support [facility] MED & PEDS 505 [place] [address] Paola Thurston, RN 505 [place] [address] documented as of this encounter Visit Diagnoses Not on filedocumented in this encounter Additional Health Concerns Assessment Noted Time PHQ-9 Depression Total Score: 0 10/13/19 2:37 PM EDT documented as of this encounter Care Teams Bridge Construction Inspector Relationship Specialty Start Date End Date Genevieve Gtz MD [address] [place] [address] PCP - General Internal Medicine 10/12/22 documented as of this encounter
--- OUTSIDE RECORDS SUMMARY | 2025-02-07 20:59 | XMS_ITS | Encounter Summary ---
Author Organization [employer] Address [address] [facility] 7t [place] [address] Care Team Providers Care Farm Mortgage Agent Name Role Phone Genevieve Gtz MD Primary Care Pro vider Reason for Visit * Reason Onset Date Comments Med Refill 01/08/2025 Encounter Details Date Type Department Care Team ([facility] Contact Info) Description 01/08/2025 Telephone [facility] MEDICINE 230 [place] [address] Genevieve Gtz MD 230 [place], [place] [phone] Med Refill Social History Tobacco Use Types [...] immediate release tablet To be sent to: [facility]/pharmacy #[id number] [place] [address] documented in this encounter Plan of Treatment Upcoming Encounters Date Type Department Care Team (Late st Contact Info) Description 02/11/2025 2:45 PM EST Clinical Support [facility] MED [facility] PEDS 505 [place] [address] Paola Thurston, KIRIT 505 [place] [address] documented as of this encounter Goals Goal [...] documented as of this encounter Care Teams Farm Mortgage Agent Relationship Specialty Start Date End Date Genevieve Gtz MD [address] [place] [address] PCP - General Internal Medicine 10/12/22 documented as of this encounter
--- OUTSIDE RECORDS SUMMARY | 2025-02-07 20:59 | XMS_ITS | Encounter Summary ---
Author Organization [employer] Address 75 [facility] 7t [place] [address] Care Team Providers Care Coning Machine Operator Name Role Phone Genevieve Gtz MD Primary Care Pro vider Reason for Visit * Reason Onset Date Comments Med Refill 12/25/2024 Encounter Details Date Type Department Care Team ([facility] Contact Info) Description 12/25/2024 Telephone [facility] MED[facility]INE 230 [place] [address] Genevieve Gtz MD 230 [place], [place] [phone] Med Refill Social History Tobacco Use Types [...] release tablet To be sent to: [facility]/pharmacy #[id number] [place] [address] documented in this encounter Plan of Treatment Upcoming Encounters Date Type Department Care Team (Late st Contact Info) Description 02/11/2025 2:45 PM EST Clinical Support [facility] MED & PEDS 505 [place] [address] Paola Thurston, KIRIT 505 [place] [address] documented as of this encounter Goals Goal [...] documented as of this encounter Care Teams Coning Machine Operator Relationship Specialty Start Date End Date Genevieve Gtz MD [address] [place] [address] PCP - General Internal Medicine 10/12/22 documented as of this encounter
--- OUTSIDE RECORDS SUMMARY | 2025-02-07 20:59 | XMS_ITS | Encounter Summary ---
Author Organization [employer] Address 75 [facility] 7t [place] [address] Care Team Providers Care Cotton Inspector Name Role Phone Genevieve Gtz MD Primary Care Pro vider Reason for Visit * Reason Onset Date Comments Med Refill 12/04/2024 Encounter Details Date Type Department Care Team ([facility] Contact Info) Description 12/04/2024 Telephone [facility] MEDICINE 230 [place] [address] Genevieve Gtz MD 230 [place], [place] [phone] Med Refill Social History Tobacco Use Types [...] release tablet To be sent to: - [facility]/pharmacy #[id number] documented in this encounter Plan of Treatment Upcoming Encounters Date Type Department Care Team (Late st Contact Info) Description 02/11/2025 2:45 PM EST Clinical Support [facility] MED & PEDS 505 [place] [address] Paola Thurston RN 505 [place] [address] documented as of this encounter Goals Goal [...] documented as of this encounter Care Teams Cotton Inspector Relationship Specialty Start Date End Date Genevieve Gtz MD [address] [place] [address] PCP - General Internal Medicine 10/12/22 documented as of this encounter
--- OUTSIDE RECORDS SUMMARY | 2025-02-07 20:59 | XMS_ITS | Encounter Summary ---
Author Organization [employer] Address 75 [facility] 7t [place] [address] Care Team Providers Care Chief Solution Architect Name Role Phone Genevieve Gtz MD Primary Care Pro vider Reason for Visit * Reason Comments Med Refill Encounter Details Date Type Department Care Team (Late st Contact Info) Description 08/26/2023 Refill [facility] MED & [facility]EDS [address] [place], [place] [phone] Genevieve Gtz MD 230 [place], [place] [phone] Benign essential hypertension Social History Tobacco Use [...] [facility] MED & PEDS 505 [place] [address] Paola Thurston, KIRIT 505 [place] [address] documented as of this encounter Goals Goal [...] as of this encounter Care Teams Chief Solution Architect Relationship Specialty Start Date End Date Genevieve Gtz MD [address] [place] [address] PCP - General Internal Medicine 10/12/22 documented as of this encounter
--- OUTSIDE RECORDS SUMMARY | 2025-02-07 20:59 | XMS_ITS | Encounter Summary ---
Author Organization [employer] Address 75 [facility] 7t [place] [address] Care Team Providers Care Dobby Loom Weaver Name Role Phone Genevieve Gtz MD Primary Care Pro vider Reason for Visit * Reason Onset Date Comments Med Refill 12/05/2023 Encounter Details Date Type Department Care Team ([facility] Contact Info) Description 12/05/2023 Telephone [facility] MEDICINE 230 [place] [address] Genevieve Gtz MD 230 [place], [place] [phone] Med Refill Social History Tobacco Use Types [...] immediate release tablet To be sent to: [facility]/pharmacy #[id number] [place] [address] documented in this encounter Plan of Treatment Upcoming Encounters Date Type Department Care Team (Late st Contact Info) Description 02/11/2025 2:45 PM EST Clinical Support [facility] MED & [facility]EDS 505 [place] [address] Paola Thurston, KIRIT 505 [place] [address] documented as of this encounter Goals Goal [...] documented as of this encounter Care Teams Dobby Loom Weaver Relationship Specialty Start Date End Date Genevieve Gtz MD [address] [place] [address] PCP - General Internal Medicine 10/12/22 documented as of this encounter
--- OUTSIDE RECORDS SUMMARY | 2025-02-07 20:59 | XMS_ITS | Encounter Summary ---
Author Organization [employer] Address [address] [place] [address] 7t [place] [address] Care Team Providers Care Vb Net Programmer Name Role Phone Carolina Hsu Primary Care Provider Genevieve Wilson MD Primary Care Pro vider Reason for Visit * Reason Onset Date Comments Med Refill 07/28/2022 Encounter Details Date Type Department Care Team ([facility] st Contact Info) Description 07/28/2022 Telephone [facility] MEDICINE [address] [place] [phone] Carolina Hsu FNP Med Refill Social History [...] Description 02/11/2025 2:45 PM EST Clinical Support [facility] MED & PEDS 505 [place] [address] Paola Thurston, KIRIT 505 [place] [address] documented as of this encounter Visit Diagnoses Diagnosis Acute on chronic heart failure, unspecified heart failure type (HCC)- Primary Benign essential hypertension Essential hypertension, benign documented in this encounter Care Teams Vb Net Programmer Relationship Specialty Start Date End Date Carolina Hsu FNP PCP - General Family Medicine 01/16/22 10/11/22 Genevieve Gtz MD [address] [place] [address] [phone] PCP - General Internal Medicine 10/12/22 documented as of this encounter
--- OUTSIDE RECORDS SUMMARY | 2025-02-07 20:59 | XMS_ITS | Clinical Summary ---
Author Organization [address] [place] [address] Address [address] [place] [address] Phone Care Team Providers Care Manager Philosophy Name Role Phone Betty Nugent MD Primary Care Provider [phone] Surgical History Surgery Date Site/Laterality Comments SECTION [...] complete this topic Insurance [place] - [place] [facility] Member Subscriber Plan / Payer (Ef fective 2023-Present) Name:ROWAN MULTANI Relation to Subscriber:Self Name:Rowan Multani Payer ID:[id number] Group ID:[id number] Type:Not on file Address: [address] [place] [address] Care Teams Manager Philosophy Relationship Specialty Start Date End Date Betty Nugent MD [address] [place] [address] PCP - General Internal Medicine 01/10/18
--- OUTSIDE RECORDS SUMMARY | 2025-02-07 21:00 | XMS_ITS | Clinical Summary ---
Author Organization [facility] Address [address] [place] [address] Care Team Providers Care Swimming Coach Name Role Phone Unavailable Primary Care Provider [...] 0.79 S/CO ratio 01/10/2022 10:39 AM EST [facility] Hepatitis C Antibody Interpretation Nonreactive Nonreactive 01/10/2022 10:39 AM EST [facility] Blood specimen (specimen) (Plasma/Serum) 01/09/2022 8:34 AM EST 01/09/2022 9:21 AM EST us Jaziel B Post MD LAB BLOOD ORDERABLES Final Resu lt HOSPITAL LAB [facility] [address] [place] [address] * HIV 1/2 Ag/Ab CMIA Reflex to Confirmation (01/09/2022 8:34 AM EST) HIV 1/2 Ag/Ab CMIA Nonreactive Nonreactive 01/10/2022 10:39 AM EST [facility] Comment: Results show no evidence of infection [...] BLOOD ORDERABLES Final Resu lt HOSPITAL LAB [facility] [email or web address] [address] [place] [place] [address] from Last 3 Months or Most Recently Relevant to Health Maintenance Insurance [facility] Member Subscriber Plan / Payer ( fective 2022-Present) Name:Shereen Taylor Relation to Subscriber:Self Name:Shereen Taylor Payer ID:Not on file Group ID:Not on file Type:Not on file Address: [address] [id number] MISC MGD MEDICARE OUT OF NETWORK Advance Directives * Full Code (Latest Code Status on File) Date Activated Date Inactivated Comments 01/06/2022 5:00 AM Question Answer Comments Decision Thoroughly Discussed with: Unable to Ilda musa
--- OUTSIDE RECORDS SUMMARY | 2025-02-07 21:00 | XMS_ITS | Clinical Summary ---
Author Organization [facility] Address [address] [place] [address] Phone Care Team Providers Care Denture Model Maker Name Role Phone Genevieve Gtz MD [...] Encounters Date Type Department Care Team Description 02/06/2025 11:00 AM EST Home Care Visit [facility] [address] [place] [address] Araceli Alvarez, KIRIT SN HOME VISIT 02/06/2025 Episode Documentation Update [facility] [address] [place] [phone] 02/04/2025 12:00 PM EST [facility] [address] [place] [phone] Araceli Alvarez, KIRIT SN OASIS RESUMPTION OF CARE (LATOYA) 02/02/2025 Home Health Resumption of Care Planning [facility] [address] [place] [address] Shraddha Jefferson RN 01/15/2025 Home Care [facility] [address] [place] [address] Emi Sommer, KIRIT SN OASIS TRANSFER 01/12/2025 3:30 PM EST Home Care Visit [facility] [address] [place] [address] Angie Bhatt, PT TELEPHONE ENCOUNTER 01/12/2025 Episode Documentation Update [facility] [address] [place] [address] 01/10/2025 12:30 PM EST Home Care Visit [facility] [address] [place] [address] Emi Sommer, RN SN OASIS START OF CARE (SOC) 01/10/2025 Plan of Care Documentation [facility] [address] [place] [address] 12/22/2024 Orders Only [facility] [address] [place] [address] Homehealth, Interface ProviderMD 12/22/2024 Home Care Visit [facility] [address] [place] [address] Angela Foster RN NON ADMIT HOME HEALTH VISIT 12/21/2024 Home Care Visit [facility] [address] [place] [address] Becca Saenz, KIRIT CASE COMMUNICATION 12/20/2024 Home Care Visit [facility] [address] [place] [address] Freida Mohan, KIRIT CASE COMMUNICATION 12/20/2024 Home Care Visit [facility] [address] [place], [place] [phone] Becca Saenz, KIRIT CASE COMMUNICATION 12/19/2024 Home Care Visit [facility] [address] [place], [place] [phone] Angela Foster RN CASE COMMUNICATION 12/15/2024 Orders Only [facility] [address] [place], [place] [phone] Homehealth, Interface ProviderMD 11/16/2024 Home Care Visit [facility] [address] [place], [place] [phone] Becca Saenz, KIRIT NON ADMIT HOME HEALTH VISIT 11/14/2024 Home Care Visit [facility] [address] [place], [place] [phone] Angela Foster RN CASE COMMUNICATION 11/10/2024 Home Care Visit [facility] [address] [place], [place] [phone] Angela Foster RN TELEPHONE ENCOUNTER 11/09/2024 Home Care Visit [facility] [address] [place], [place] [phone] Becca Saenz, KIRIT CASE COMMUNICATION from Last 3 Months Social History Tobacco [...] st Contact Info) Description 02/09/2025 Appointment [facility] [address] [place] [phone] Araceli Alvarez, KIRIT [address] [place] [address] [email or web address] 02/11/2025 3:00 AM EST Appointment [facility] [address] [place] [address] Araceli Alvarez, KIRIT [address] [place] [address] [email or web address] 02/13/2025 4:30 AM EST Appointment [facility] [address] [place] [phone] Araceli Alvarez, KIRIT [address] [place] [address] [email or web address] 02/16/2025 12:30 AM EST Appointment [facility] [address] [place] [phone] Araceli Alvarez, KIRIT [address] [place] [address] [email or web address] 02/18/2025 4:30 AM EST Appointment [facility] [address] [place] [phone] Araceli Alvarez, KIRIT [address] [place] [address] [email or web address] 02/20/2025 2:30 AM EST Appointment [facility] [address] [place] [address] Araceli Alvarez, KIRIT [address] [place] [address] [email or web address] 02/23/2025 1:00 AM EST Appointment [facility] [address] [place] [phone] Araceli Alvarez, RN [address] [place] [address] [email or web address] 02/25/2025 4:00 AM EST Appointment [facility] [address] [place] [address] Araceli Alvarez, RN [address] [place] [address] [email or web address] 02/27/2025 3:00 AM EST Appointment [facility] [address] [place] [phone] Araceli Alvarez, RN [address] [place] [address] [email or web address] 03/02/2025 2:00 AM EST Appointment [facility] [address] [place] [phone] Araceli Alvarez, RN [address] [place] [address] [email or web address] 03/04/2025 3:00 AM EST Appointment [facility] [address] [place] [phone] Araceli Alvarez, RN [address] [place] [address] [email or web address] 03/06/2025 2:00 AM EST Appointment [facility] [address] [place] [phone] Araceli Alvarez, RN [address] [place] [address] [email or web address] 03/09/2025 2:00 AM EST Appointment [facility] [address] [place] [phone] Araceli Alvarez, RN [address] [place] [phone] [email or web address] Medical Devices Not on file Insurance CARE MEDICARE REPLACEMENT [place] [id number] CARE MEDICARE REPLACEMENT CARE MEDICARE REPLACEMENT MEDICARE REPLACEMENT MEDICARE REPLACEMENT MEDICARE REPLACEMENT Care Teams Denture Model Maker Relationship Specialty Start Date End Date Genevieve Gtz MD [address] [place] [address] PCP - General Internal Medicine 11/06/24 Additional Source Comments The information contained in this document represents components of the legal health record. It is not the complete legal health record.[facility]
--- OUTSIDE RECORDS SUMMARY | 2025-02-07 21:00 | XMS_ITS | Encounter Summary ---
Author Organization [facility] Address [address] [place] [phone] Phone Care Team Providers Care Lapel Baster Name Role Phone EmilyAlyssa hutchinson Primary Care Provider Unava ilable Encounter Details Date Type Department Care Team (Late st Contact Info) Description 07/08/2024 TCM in Dialysis Clinic [facility] [address] [phone] Placido Carver MD [address] [phone] Social History Tobacco Use Types [...] 07/08/2024 The patient was seen for a affn-az-bwai visit as part of Transitional Care Management services. Attending Hogshead Head Matcher: PLACIDO CARVER MD Dialysis Location: [facility] Schedule: Shift: 2 INTERACTIVE CONTACT [...] - No ulcers. VISIT DIAGNOSES CPT Code 23639 - High complexity, seen within 7 days of discharge. N18.6 End stage renal disease Signed by: PLACIDO CARVER MD on 07/26/2024 at 02:13:33 PM Transcribed by: PLACIDO CARVER MD on 07/26/2024 at 02:13:33 PM documented in this encounter Plan of Treatment Not on file documented as of this encounter Visit Diagnoses Not on filedocumented in this encounter Care Teams Lapel Baster Relationship Specialty Start Date End Date Alyssa Manzano DO [address] [place] [address] PCP - General Family Medicine 03/02/21 documented as of this encounter
--- OUTSIDE RECORDS SUMMARY | 2025-02-07 21:00 | XMS_ITS | Encounter Summary ---
Author Organization [facility] Address [address] [place] [phone] Phone Care Team Providers Care Rail Car Maintenance Mechanic Name Role Phone EmilyAlyssa hutchinson Primary Care Provider Unava ilable Encounter Details Date Type Department Care Team (Late st Contact Info) Description 08/12/2024 TCM in Dialysis Clinic [facility] [address] [id number] Placido Carver MD [address] [phone] Social History Tobacco Use Types [...] 08/12/2024 The patient was seen for a alvr-ep-stca visit as part of Transitional Care Management services. Attending Laboratory Tech: PLACIDO CARVER MD Dialysis Location: [facility] Schedule: Shift: 2 INTERACTIVE [...] follow-up appointments noted. VISIT DIAGNOSES CPT Code 35934 - High complexity, seen within 7 days of discharge. N18.6 End stage renal disease Signed by: PLACIDO CARVER MD on 08/12/2024 at 01:16:47 PM Transcribed by: PLACIDO CARVER MD on 08/12/2024 at 01:16:47 PM documented in this encounter Plan of Treatment Not on file documented as of this encounter Visit Diagnoses Not on filedocumented in this encounter Care Teams Rail Car Maintenance Mechanic Relationship Specialty Start Date End Date Alyssa Manzano DO [address] [place] [address] PCP - General Family Medicine 03/02/21 documented as of this encounter
--- NOTE | 2025-02-07 21:22 | ECG_ITS ---
Test Reason : MISSED DIALYSIS Blood Pressure : */* mmHG Vent. Rate : 95 BPM Atrial Rate : 95 BPM P-R Int : 166 ms QRS Dur : 156 ms QT Int : 408 ms P-R-T Axes : 72 -9 70 degrees QTcB Int : 512 ms Normal sinus rhythm Right bundle branch block Abnormal ECG When compared with ECG of 02-Feb-2025 02:36, No significant change was found Referred By: Sylvia Saxena Electronically Signed By: HATTIE BAÑUELOS MD
[2025-02-07 21:55] LABS: Glucose, Whole Blood 439 mg/dL (60-115)
--- NOTE | 2025-02-07 22:50 | ED_ITS ---
HPI - General Adult General Chief complaint: General Medical Stated complaint: MISSED DIALYSIS. ABNORMAL LABS Time Seen by Provider: 02/07/25 20:36 Related Data Home Medications ?Medication ?Instructions ?Recorded ?Confirmed albuterol sulfate 90 mcg/actuation 2 puff inhalation Q 6H PRN wheezing 01/15/24 02/02/25 aerosol inhaler (Ventolin HFA) nitroglycerin 0.4 mg sublingual 0.4 mg sublingual D IRECTED PRN 01/15/24 02/02/25 tablet Angina calcium carbonate (Tums) 200 mg PO TIDWM PRN Acid Ref lux 07/03/24 02/02/25 levetiracetam 500 mg tablet 1,500 mg PO BID 02/02/25 1 04/05/24 ([place]) lidocaine 4 % topical patch 1 patch topical DAILY PRN Pain 02/02/25 02/02/25 Previous Rx's ?Medication ?Instructions ?Recorded carvedilol 12.5 mg tablet 12.5 mg PO BID 90 days #180 tabs 12/16/23 hydralazine 50 mg tablet 50 mg PO TID 90 days #270 ta bs 12/16/23 blood sugar diagnostic (FreeStyle #100 ea 08/26/24 Lite Strips) blood-glucose meter (FreeStyle #1 ea 08/26/24 Lite Meter kit) lancets 28 gauge (FreeStyle #100 ea 08/26/24 Lancets) pen needle, diabetic 32 gauge x #100 ea 08/26/24 1/ metoclopramide HCl 10 mg tablet 10 mg PO Q6H PRN nause a and 12/19/24 (Reglan) vomiting #14 tabs acetaminophen 325 mg tablet 975 mg (3 x 325 mg) PO Q4H PRN 01/08/25 mild pain 30 days #90 tabs amlodipine 2.5 mg tablet 7.5 mg PO BEDTIME #90 tabs 1 04/02/24 apixaban 2.5 mg tablet (Eliquis) 2.5 mg PO BID #180 ta bs 01/30/25 bisacodyl 5 mg tablet,delayed 10 mg (2 x 5 mg) PO BEDT CORTEZ PRN 01/31/25 release Constipation #90 tabs commode #1 ea 01/31/25 dextrose 40 % oral gel (Glucose 15 g PO Q15M PRN For b lood sugar 01/31/25 Gel) less than 70 #300 grams docusate sodium 100 mg capsule 100 mg PO BID #180 caps 01/31/25 (Colace) insulin lispro 100 unit/mL 1 sliding scale dose subcut 01/31/25 subcutaneous pen (Admelog SoloStar USEASDIRECTD #15 mL U-100 Insulin lispro) oxycodone 10 mg tablet 10 mg PO Q8H PRN pain 5 days #24 01/31/25 tabs oxycodone 10 mg tablet,crush 10 mg PO BID 10 days #20 tabs 01/31/25 resistant,extended release 12 hr (OxyContin) valproic acid 250 mg capsule 500 mg (2 x 250 mg) PO TI D #270 01/31/25 caps Allergies Allergy/AdvReac Type Severity Reaction Status Date / Time gabapentin Allergy Severe Facial Verified 02/07/25 20:46 Swelling tramadol Allergy Severe Facial Verified 02/07/25 20:46 Swelling azithromycin (From Zithromax) Allergy Intermediate Hives Verified 02/07/25 20:46 morphine (MORPHINE) Allergy Intermediate Itching Verified 02/07/25 20:46 vancomycin AdvReac Intermediate Itching Verified 02/07/25 20:46 PMFSH Past Medical History Medical History Central pontine myelinolysis ESRD on hemodialysis End-stage renal disease (ESRD) Cardiomyopathy Cerebral microvascular disease Steroid-induced hyperglycemia Relapsing remitting multiple sclerosis Renal failure Multiple sclerosis Cerebral infarction Hyperkalemia ESRD on dialysis Hypoxia End stage renal disease on dialysis Chronic ulcer of right foot due to diabetes mellitus Chronic ulcer of left foot due to diabetes mellitus DM foot ulcer Hypotonic neurogenic bladder Diabetic polyneuropathy Hypertensive emergency Decompensated heart failure Renal failure Hypertension, uncontrolled Medical non-compliance Pericarditis Unspecified hypertension, condition or complication Metabolic acidosis Gastroparesis End stage chronic kidney disease Chronic kidney disease Anemia Plantar ulcer of left foot MDD (major depressive disorder) CKD (chronic kidney disease) Hypertension Vomiting Chronic pain Non-compliance with renal dialysis Diabetic foot ulcer associated with type 2 diabetes mellitus HFrEF (heart failure with reduced ejection fraction) delivery delivered Anemia in chronic kidney disease (CKD) CKD (chronic kidney disease) Abnormal finding on echocardiogram Elevated troponin Acute worsening of stage 3 chronic kidney disease Generalized edema Sepsis Cellulitis Pleural effusion Atypical chest pain Bone infection PAD (peripheral artery disease) Cellulitis and abscess of foot Osteomyelitis Asthma Depression with anxiety Diabetic retinopathy Blind right eye Diabetes Back pain Surgical History Below-knee amputation of left lower extremity (~01/05/25) Tubal ligation status Previous section Hx laparoscopic cholecystectomy Hx of surgical procedure (~09/11/23) 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 Family History Family History Mother Coronary artery disease Myocardial infarction Stroke Diabetes mellitus Father Myocardial infarction Social History Social History Household Members: Family Household Members Other:: sister, brother, [id number] Housing: Apartment Housing Other:: Apartment, 1st floor Are you a primary resident care manager rn to a significant other at home: No Do you presently have visiting nurse or other home services: No Alcohol intake: never Comment: patient refusing bed alarm Patient Tobacco Use Status: Never used Tobacco Smoked in Last 30 Days: No e-Cigarette/Vaping Use: Never Used Second Hand Smoke Exposure: No Advance Directives: Yes Advance Directives on File: Yes Advance Directives Date on File: 09/04/23 Do you have a plan to hurt others: No Plan Patient : No service: No Current occupational status: unemployed and disabled Gender identity: Female Physical Exam ED Vital Signs: Vital Signs - 24 hr 02/07/25 20:41 02/07/25 20:54 02/08/25 01:44 Temperature 98.1 F Pulse Rate 98 98 90 Respiratory Rate 20 20 Blood Pressure 213/112 H 213/112 H 190/107 H Pulse Oximetry 94 94 Oxygen Delivery Method Room Air Room Air 02/08/25 01:45 02/08/25 01:52 Temperature Pulse Rate 90 Respiratory Rate 20 Blood Pressure 213/112 H 185/94 H Pulse Oximetry 94 Oxygen Delivery Method BMI result Body Mass Index 34.0 Medications Administered Discontinued Medications Generic Name Dose Route Start Last Admin Trade Name Freq PRN Reason Stop Dose Admin Diphenhydramine HCl 25 mg 02/07/25 22:54 02/07/25 23:00 Diphenhydramine Hcl 50 Mg/Ml Vial IVPUSH 02/07/25 22:55 25 mg ONCE ONE Administration Hydralazine HCl 50 mg 02/08/25 01:32 02/08/25 01:45 Hydralazine Hcl 50 Mg Tablet PO 02/08/25 01:33 50 mg ONCE ONE Administration Protocol Hydromorphone HCl 0.5 mg 02/07/25 22:54 02/07/25 23:00 Hydromorphone Hcl 0.5 Mg/0.5 Ml Syringe IVPUSH 02/07/25 22:55 0.5 mg ONCE ONE Administration Protocol Insulin Human Regular 5 unit 02/07/25 22:19 02/07/25 22:56 Insulin Regular, Human 100 Unit/Ml 10 Ml Vial IVPUSH 02/07/25 22:20 5 unit ONCE ONE Administration Labetalol HCl 10 mg 02/08/25 01:32 02/08/25 01:44 Labetalol Hcl 100 Mg/20 Ml Vial IVPUSH 02/08/25 01:33 10 mg ONCE ONE Administration Procedures EJ/Peripheral Line EJ: Time Out Performed: Yes Skin Cleansed in Sterile Fashion: Yes Size (gauge): 18 IV Secured and Dressing Applied: Yes Patient Tolerated Procedure: well Medical Decision Making Medical Decision Making MDM Narrative: Patient is 34 years old presents today with having missed her dialysis. She was due for dialysis at 11. She missed her dialysis due to running errands that she needs. Patient noncompliant with her diabetic regimen was noted to have a sugar of over 500 she was given insulin monitored. Glucose is coming down is down to 300 patient noncompliant with blood pressure medication. Her initial blood pressure was 212/113. Was given labetalol and also hydralazine blood pressure is 189/90. Patient's potassium came back at 5.7. My interpretation of patient's EKG showed a sinus rhythm heart rate is 95 CA is normal QRS is prolonged secondary to a right bundle-branch block which is old there is no acute ST segment changes when compared to a previous EKG from 2 days ago. Went ahead and give patient a dose of Lokelma in for the elevated K. case discussed with the nephrologists okay with admitting patient to the hospitalist service and get dialyzed in a.m.. In stable condition. No evidence of DKA patient's pH is normal. Patient's beta hydroxybutyrate is normal Differential Diagnosis Differential Diagnoses: The differential diagnosis associated with the presentation includes Renal failure, hyperglycemia, DKA, electrolyte disturbance, Admission/Observation Consideration of admission/observation: Escalation of care including admission/observation considered Consult Healthcare Provider Management of the patient was discussed with: Hospitalist and Swager Operator (Nephrology) Lab Data MDM Lab Attestation statement: I reviewed the patient's lab results. 02/07/25 22:48 02/07/25 22:48 Labs: Lab Results 02/07/25 02/07/25 02/07/25 Range/Units 21:50 22:48 22:48 WBC 11.5 H (4.8-10.8) X10*3/uL RBC 2.67 L D (4.20-5.50) X10*6/uL Hgb 8.2 L D (12.0-16.0) g/dl Hct 24.3 L D (37.0-47.0) % MCV 91.0 (80.0-98.0) fL MCH 30.7 (27.0-33.0) pg MCHC 33.7 (31.0-35.0) g/dl RDW 16.4 H (11.0-16.0) % Plt Count 125 L (160-400) X10*3/uL MPV 12.8 H (9.4-12.3) fL Immature Gran % (Auto) Cancelled Neut % (Auto) Cancelled Lymph % (Auto) Cancelled Pettis % (Auto) Cancelled Eos % (Auto) Cancelled Baso % (Auto) Cancelled Lymph # (Auto) Cancelled Pettis # (Auto) Cancelled Eos # (Auto) Cancelled Baso # (Auto) Cancelled Abs Immat Gran (auto) Cancelled Absolute Neuts (auto) Cancelled Absolute Nucleated RBC 0.000 (0.0-0.012) X10*3/uL Nucleated RBC % (auto) 0.0 (0.0-0.2) /100WBC Neutrophils % (Manual) 95 H (45-73) % Band Neutrophils % 2 L (3-5) % Lymphocytes % (Manual) 2 L (20-40) % Monocytes % (Manual) 1 L (2-11) % Abs Neuts (Manual) 11.2 H (2.0-8.3) X10*3/uL Lymphocytes # (Manual) 0.2 L (1.2-4.9) X10*3/uL Monocytes # (Manual) 0.1 (0.1-1.2) X10*3/uL Platelet Estimate SLIGHTLY DECREASED (NORMAL) Large Platelets PRESENT Plt Morphology Comment NORMAL RBC Morphology NOTED Spherocytes 1+ (0-2) /OIF Kelly Cells 1+ (0-2) /OIF Schistocytes 1+ (0-2) /OIF VBG pH (7.32-7.43) VBG pCO2 mmHg VBG pO2 mmHg VBG HCO3 (22-26) mmol/L VBG O2 Saturation % VBG Base Excess mmol/L Sodium 133 L (135-145) mmol/L Potassium 5.7 H (3.3-5.1) mmol/L Chloride 98 (96-108) mmol/L Carbon Dioxide 20 L (22-29) mmol/L Anion Gap 21 H (12-20) BUN 105 H (9-16) mg/dL Creatinine 8.68 H* (0.5-1.4) mg/dL Estim Creat Clear Calc 10.4 Estimated GFR 5 POC Glucose 439 H* (60-115) mg/dL Random Glucose 495 H* (60-115) mg/dL Calcium 7.6 L 7.6 L (8.4-10.2) mg/dL Phosphorus 7.5 H (2.7-4.5) mg/dL Magnesium 2.8 H (1.6-2.6) mg/dL Total Bilirubin 0.6 (0.0-1.0) mg/dL Direct Bilirubin 0.3 (0.0-0.5) mg/dL AST 29 (5-31) U/L ALT 34 H (0-31) U/L Alkaline Phosphatase 210 H (39-117) U/L Total Protein 6.5 (6.5-8.0) g/dL Albumin 3.5 (3.5-5.0) g/dL Beta-Hydroxybutyrate 0.11 (0.02-0.27) mmol/L Beta HCG, Quant < 2 mIU/mL Influenza Type A (PCR) NEGATIVE (Negative) Influenza Type B (PCR) NEGATIVE (Negative) RSV RNA Qual (PCR) NEGATIVE (Negative) SARS-CoV-2 RNA (RT-PCR) NEGATIVE (Negative) 02/07/25 02/08/25 Range/Units 22:55 00:30 WBC (4.8-10.8) X10*3/uL RBC (4.20-5.50) X10*6/uL Hgb (12.0-16.0) g/dl Hct (37.0-47.0) % MCV (80.0-98.0) fL MCH (27.0-33.0) pg MCHC (31.0-35.0) g/dl RDW (11.0-16.0) % Plt Count (160-400) X10*3/uL MPV (9.4-12.3) fL Immature Gran % (Auto) Neut % (Auto) Lymph % (Auto) Pettis % (Auto) Eos % (Auto) Baso % (Auto) Lymph # (Auto) Pettis # (Auto) Eos # (Auto) Baso # (Auto) Abs Immat Gran (auto) Absolute Neuts (auto) Absolute Nucleated RBC (0.0-0.012) X10*3/uL Nucleated RBC % (auto) (0.0-0.2) /100WBC Neutrophils % (Manual) (45-73) % Band Neutrophils % (3-5) % Lymphocytes % (Manual) (20-40) % Monocytes % (Manual) (2-11) % Abs Neuts (Manual) (2.0-8.3) X10*3/uL Lymphocytes # (Manual) (1.2-4.9) X10*3/uL Monocytes # (Manual) (0.1-1.2) X10*3/uL Platelet Estimate (NORMAL) Large Platelets Plt Morphology Comment RBC Morphology Spherocytes /OIF Fareed Cells /OIF Schistocytes /OIF VBG pH 7.37 (7.32-7.43) VBG pCO2 37 mmHg VBG pO2 78 mmHg VBG HCO3 22 (22-26) mmol/L VBG O2 Saturation 93.0 % VBG Base Excess -2.7 mmol/L Sodium (135-145) mmol/L Potassium (3.3-5.1) mmol/L Chloride (96-108) mmol/L Carbon Dioxide (22-29) mmol/L Anion Gap (12-20) BUN (9-16) mg/dL Creatinine (0.5-1.4) mg/dL Estim Creat Clear Calc Estimated GFR POC Glucose 323 H (60-115) mg/dL Random Glucose (60-115) mg/dL Calcium (8.4-10.2) mg/dL Phosphorus (2.7-4.5) mg/dL Magnesium (1.6-2.6) mg/dL Total Bilirubin (0.0-1.0) mg/dL Direct Bilirubin (0.0-0.5) mg/dL AST (5-31) U/L ALT (0-31) U/L Alkaline Phosphatase (39-117) U/L Total Protein (6.5-8.0) g/dL Albumin (3.5-5.0) g/dL Beta-Hydroxybutyrate (0.02-0.27) mmol/L Beta HCG, Quant mIU/mL Influenza Type A (PCR) (Negative) Influenza Type B (PCR) (Negative) RSV RNA Qual (PCR) (Negative) SARS-CoV-2 RNA (RT-PCR) (Negative) Independent Interpretation I performed an independent interpretation of an: EKG (Sinus heart rate is 90 CA is normal QRS is wide secondary to right bundle-branch block) and Plain X-Ray (Chest x-ray) Radiology Impression Discussion of test interpretation with radiology: I have reviewed the radiologist's reading. External Record Review External record reviewed: Inpatient record Chronic Conditions Patient?s care impacted by: Diabetes and Hypertension Social Determinants Patient?s care significantly limited by Social Determinants of Health including: Problems related to primary support group and Other Social Determinant of Health Critical Care Time Critical Care Time Critical Care Time: Yes Total Critical Care Time: 40 Attestation: I have personally provided 40 minutes of critical care time exclusive of time spent on separately billable procedures. ?Time includes review of lab data, radiology results, discussion with consultants, and monitoring for potential decompensation. ?Interventions were performed as documented above Discharge Plan Discharge Clinical Impression: Acute hyperglycemia, Acute hyperkalemia, Hypertensive urgency Patient Disposition: Admitted As Inpatient Print Language: Faroese
[2025-02-07 22:55] LABS: Hematocrit 24.3 % (37.0-47.0); Hemoglobin 8.2 g/dl (12.0-16.0); Mean Corpuscular HGB Conc 33.7 g/dl (31.0-35.0); Mean Corpuscular Hemoglobin 30.7 pg (27.0-33.0); Mean Corpuscular Volume 91.0 fL (80.0-98.0); NRBC Abs Auto 0.000 X10*3/uL (0.0-0.012); NRBC Pct Auto 0.0 /100WBC (0.0-0.2); Platelet Count 125 X10*3/uL (160-400); Red Blood Count 2.67 X10*6/uL (4.20-5.50); White Blood Count 11.5 X10*3/uL (4.8-10.8)
[2025-02-07 22:59] LABS: Venous Blood Gas Refer to POC result
[2025-02-07 23:00] LABS: VBG HCO3 22 mmol/L (22-26); VBG O2 % Saturation 93.0 %
[2025-02-07 23:18] LABS: Calcium 7.6 mg/dL (8.4-10.2); Magnesium 2.8 mg/dL (1.6-2.6)
--- NOTE | 2025-02-07 23:23 | PC.NURSE ---
critical labs: creatinine: 8.68 Glucose: 495
[2025-02-07 23:24] LABS: Alanine Aminotransferase 34 U/L (0-31); Albumin Level 3.5 g/dL (3.5-5.0); Alkaline Phosphatase 210 U/L (39-117); Anion Gap 21 (12-20); Aspartate Amino Transferase 29 U/L (5-31); Blood Urea Nitrogen 105 mg/dL (9-16); Calcium 7.6 mg/dL (8.4-10.2); Carbon Dioxide 20 mmol/L (22-29); Chloride 98 mmol/L (96-108); Creatinine Clr Calc Pharmacy 10.4; Estimated Glomerular Filt Rate 5; Potassium 5.7 mmol/L (3.3-5.1); Sodium 133 mmol/L (135-145); Total Protein 6.5 g/dL (6.5-8.0)
[2025-02-07 23:33] LABS: Band Neutrophils Percent 2 % (3-5); Burr Cells 1+ (0-2) /OIF; Lymphocytes Absolute Manual 0.2 X10*3/uL (1.2-4.9); Lymphocytes Percent Manual 2 % (20-40); Monocytes Absolute Manual 0.1 X10*3/uL (0.1-1.2); Monocytes Percent Manual 1 % (2-11); Neutrophils Absolute Manual 11.2 X10*3/uL (2.0-8.3); Neutrophils Percent Manual 95 % (45-73); Resp Syncy Virus RNA Qual PCR NEGATIVE (Negative); SARS COV2 PCR INHOUSE NEGATIVE (Negative)
[2025-02-07 23:34] LABS: Schistocytes 1+ (0-2) /OIF
[2025-02-07 23:35] LABS: RBC Morphology NOTED
[2025-02-07 23:37] LABS: Large Platelet PRESENT; Spherocytes 1+ (0-2) /OIF
[2025-02-08] VITALS (11 sets, daily range): BP systolic 00–213; BP diastolic 00–112; PULSE 0–92; RESP 18–20; TEMP -17.7–36.6; O2SAT 94–98
--- NOTE | 2025-02-08 | ECG_ITS ---
Test Reason : HYPERK Blood Pressure : */* mmHG Vent. Rate : 91 BPM Atrial Rate : 91 BPM P-R Int : 176 ms QRS Dur : 154 ms QT Int : 424 ms P-R-T Axes : 27 -16 31 degrees QTcB Int : 521 ms Normal sinus rhythm Right bundle branch block Abnormal ECG When compared with ECG of 07-Feb-2025 21:37, No significant change was found Referred By: Steve Shepherd Electronically Signed By: HATTIE BAÑUELOS MD
[2025-02-08 00:34] LABS: Glucose, Whole Blood 323 mg/dL (60-115)
[2025-02-08 02:47] LABS: Glucose, Whole Blood 330 mg/dL (60-115)
--- NOTE | 2025-02-08 03:11 | PM.IMHP ---
History of Present Illness Date of Service: 02/08/25 Chief Complaint: Missed HD A 34-year-old with a complex medical history, including end-stage renal disease on hemodialysis via permcath, anemia secondary to ESRD, insulin-dependent type II diabetes with diabetic retinopathy and blindness, chronic right foot wound, left [id number] amputation (performed by Dr. Rajput on Jan 05, 2025), hypertension, peripheral arterial disease, history of C. difficile infection, anxiety, depression, recent pulmonary embolism, status epilepticus, multiple sclerosis, cerebrovascular accident, sepsis/bacteremia, and prior central line infection, presented to the emergency department after missing a scheduled dialysis session on 02/05 due to running errands. The patient is being admitted to observation for hemodialysis. There is no evidence of diabetic ketoacidosis or acute clinical decompensation at this time. Repeat BMP at 0447: K 6.1, glucose 322, CO3 20->14, anion gap 21->26 ED Course Summary In the ED hypertensive (BP 213/112 mmHg), hyperglycemic (glucose >500 mg/dL), and hyperkalemic (K 5.7 mmol/L). IV insulin, antihypertensives (labetalol, hydralazine), and a potassium binder (Lokelma), resulting in partial improvement of her glucose and blood pressure. EKG showed sinus rhythm with chronic right bundle branch block and no acute changes. PENDING SALE TO [facility] Medical History Central pontine myelinolysis ESRD on hemodialysis End-stage renal disease (ESRD) Cardiomyopathy Cerebral microvascular disease Steroid-induced hyperglycemia Relapsing remitting multiple sclerosis Renal failure Multiple sclerosis Cerebral infarction Hyperkalemia ESRD on dialysis Hypoxia End stage renal disease on dialysis Chronic ulcer of right foot due to diabetes mellitus Chronic ulcer of left foot due to diabetes mellitus DM foot ulcer Hypotonic neurogenic bladder Diabetic polyneuropathy Hypertensive emergency Decompensated heart failure Renal failure Hypertension, uncontrolled Medical non-compliance Pericarditis Unspecified hypertension, condition or complication Metabolic acidosis Gastroparesis End stage chronic kidney disease Chronic kidney disease Anemia Plantar ulcer of left foot MDD (major depressive disorder) CKD (chronic kidney disease) Hypertension Vomiting Chronic pain Non-compliance with renal dialysis Diabetic foot ulcer associated with type 2 diabetes mellitus HFrEF (heart failure with reduced ejection fraction) delivery delivered Anemia in chronic kidney disease (CKD) CKD (chronic kidney disease) Abnormal finding on echocardiogram Elevated troponin Acute worsening of stage 3 chronic kidney disease Generalized edema Sepsis Cellulitis Pleural effusion Atypical chest pain Bone infection PAD (peripheral artery disease) Cellulitis and abscess of foot Osteomyelitis Asthma Depression with anxiety Diabetic retinopathy Blind right eye Diabetes Back pain Family History Mother Coronary artery disease Myocardial infarction Stroke Diabetes mellitus Father Myocardial infarction Surgical History Below-knee amputation of left lower extremity (~01/05/25) Tubal ligation status Previous section Hx laparoscopic cholecystectomy Hx of surgical procedure (~09/11/23) 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 Social History Household Members: Family Household Members Other:: sister, brother, [id number] Housing: Apartment Housing Other:: Apartment, 1st floor Are you a primary career and transition teacher to a significant other at home: No Do you presently have visiting nurse or other home services: No Alcohol intake: never Comment: patient refusing bed alarm Patient Tobacco Use Status: Never used Tobacco Smoked in Last 30 Days: No e-Cigarette/Vaping Use: Never Used Second Hand Smoke Exposure: No Advance Directives: Yes Advance Directives on File: Yes Advance Directives Date on File: 09/04/23 Do you have a plan to hurt others: No Plan Patient : No service: No Current occupational status: unemployed and disabled Gender identity: Female Meds Allergies Allergy/AdvReac Type Severity Reaction Status Date / Time gabapentin Allergy Severe Facial Verified 02/07/25 20:46 Swelling tramadol Allergy Severe Facial Verified 02/07/25 20:46 Swelling azithromycin (From Zithromax) Allergy Intermediate Hives Verified 02/07/25 20:46 morphine (MORPHINE) Allergy Intermediate Itching Verified 02/07/25 20:46 vancomycin AdvReac Intermediate Itching Verified 02/07/25 20:46 Home Medications ?Medication ?Instructions ?Recorded ?Confirmed ?Last Taken ?Type albuterol sulfate 90 mcg/actuation 2 puff inhalation Q6H PRN wheezing 01/15/24 02/02/25 12/09/24 History aerosol inhaler (Ventolin HFA) nitroglycerin 0.4 mg sublingual 0.4 mg sublingual DIRECTED PRN 01/15/24 02/02/25 12/09/24 History tablet Angina calcium carbonate (Tums) 200 mg PO TIDWM PRN Acid Reflux 07/03/24 02/02/25 12/09/24 History levetiracetam 500 mg tablet 1,500 mg PO BID 02/02/25 02/02/25 02/01/25 History ([place]ry[place]) lidocaine 4 % topical patch 1 patch topical DAILY PRN Pain 02/02/25 02/02/25 Unknown History Physical Exam Vital Signs and Narrative: Vital Signs: Last Vital Signs Temp 98.1 F 02/07/25 20:54 Pulse 90 02/08/25 01:52 Resp 20 02/08/25 01:52 BP 185/94 H 02/08/25 01:52 Pulse Ox 94 02/08/25 01:52 O2 Del Method Room Air 02/07/25 20:54 BMI result Body Mass Index 34.0 General: Alert, oriented, in no acute distress and cooperative. HEENT: Head normocephalic, atraumatic. PER, EOMI. Sclerae anicteric, conjunctiva clear. Oropharynx without erythema or exudate. Mucous membranes moist. Neck: Supple Heart: RRR Lungs: CTABL. No wheezes, rales, or rhonchi. Normal respiratory effort. Abdomen: Soft, non tenderness, nondistended, normoactive bowel sounds. Extremities: L BKA Results Labs 02/07/25 22:48 02/08/25 04:47 Labs: Laboratory Results - last 24 hr 02/07/25 02/07/25 02/07/25 21:50 22:48 22:48 MCV 91.0 MCH 30.7 MCHC 33.7 RDW 16.4 H Plt Count 125 L MPV 12.8 H Immature Gran % (Auto) Cancelled Neut % (Auto) Cancelled Lymph % (Auto) Cancelled [place] % (Auto) Cancelled Eos % (Auto) Cancelled Baso % (Auto) Cancelled Lymph # (Auto) Cancelled [place] # (Auto) Cancelled Eos # (Auto) Cancelled Baso # (Auto) Cancelled Abs Immat Gran (auto) Cancelled Absolute Neuts (auto) Cancelled Absolute Nucleated RBC 0.000 Nucleated RBC % (auto) 0.0 Neutrophils % (Manual) 95 H Band Neutrophils % 2 L Lymphocytes % (Manual) 2 L Monocytes % (Manual) 1 L Abs Neuts (Manual) 11.2 H Lymphocytes # (Manual) 0.2 L Monocytes # (Manual) 0.1 Platelet Estimate SLIGHTLY DECREASED Large Platelets PRESENT Plt Morphology Comment NORMAL RBC Morphology NOTED Spherocytes 1+ (0-2) [place]ed Cells 1+ (0-2) Schistocytes 1+ (0-2) VBG pH VBG pCO2 VBG pO2 VBG HCO3 VBG O2 Saturation VBG Base Excess Anion Gap 21 H Estim Creat Clear Calc 10.4 Estimated GFR 5 POC Glucose 439 H* Random Glucose 495 H* Calcium 7.6 L 7.6 L Phosphorus 7.5 H Magnesium 2.8 H Total Bilirubin 0.6 Direct Bilirubin 0.3 AST 29 ALT 34 H Alkaline Phosphatase 210 H Total Protein 6.5 Albumin 3.5 Beta-Hydroxybutyrate 0.11 Beta HCG, Quant < 2 Influenza Type A (PCR) NEGATIVE Influenza Type B (PCR) NEGATIVE RSV RNA Qual (PCR) NEGATIVE SARS-CoV-2 RNA (RT-PCR) NEGATIVE 02/07/25 02/08/25 02/08/25 22:55 00:30 02:42 MCV MCH MCHC RDW Plt Count MPV Immature Gran % (Auto) Neut % (Auto) Lymph % (Auto) [place] % (Auto) Eos % (Auto) Baso % (Auto) Lymph # (Auto) [place] # (Auto) Eos # (Auto) Baso # (Auto) Abs Immat Gran (auto) Absolute Neuts (auto) Absolute Nucleated RBC Nucleated RBC % (auto) Neutrophils % (Manual) Band Neutrophils % Lymphocytes % (Manual) Monocytes % (Manual) Abs Neuts (Manual) Lymphocytes # (Manual) Monocytes # (Manual) Platelet Estimate Large Platelets Plt Morphology Comment RBC Morphology Spherocytes [place] Cells Schistocytes VBG pH 7.37 VBG pCO2 37 VBG pO2 78 VBG HCO3 22 VBG O2 Saturation 93.0 VBG Base Excess -2.7 Anion Gap Estim Creat Clear Calc Estimated GFR POC Glucose 323 H 330 H Random Glucose Calcium Phosphorus Magnesium Total Bilirubin Direct Bilirubin AST ALT Alkaline Phosphatase Total Protein Albumin Beta-Hydroxybutyrate Beta HCG, Quant Influenza Type A (PCR) Influenza Type B (PCR) RSV RNA Qual (PCR) SARS-CoV-2 RNA (RT-PCR) Assessment and Plan (1) End-stage renal disease (ESRD): Status: Acute (2) Type II diabetes mellitus: Status: Acute (3) Acute hyperglycemia: Status: Acute Plan A 34-year-old with a complex medical history, including end-stage renal disease on hemodialysis, presented to the emergency department after missing a scheduled dialysis session. Admitted to observation. End-stage renal disease on hemodialysis with hyperkalemia likely secondary to missed hemodialysis sessions -Nephrology consulted for hemodialysis (Dr. Siddiqi informed of consult via [employer]) -Lokelva administered -Monitor on telemetry -Insulin and bicarbonate IV Hypertensive urgency likely secondary to missed hemodialysis sessions -Hydralazine 10 mg IV for systolic BP greater than 160 -Once med history completed resume home medications as indicated Type 2 diabetes mellitus with hyperglycemia possible due to non adherence -Correctional insulin -Continue to monitor blood glucose levels L BKA -Hydromorphone as needed Pharmacist medication history is pending. Resume the patient?s oral home medications after medication reconciliation is complete. Code status: Full VTE: Eliquis (x1 dose ordered, pending home medication reconciliation completion) Quality Stroke Does the patient have a stroke diagnosis?: No VTE Prior VTE?: Yes VTE Risk Level:: Medical - moderate - high VTE Device Contraindication: Treatment Not Indicated VTE Drug Contraindication: N/A - Med Ordered
[2025-02-08 05:10] LABS: Anion Gap 26 (12-20); Blood Urea Nitrogen 111 mg/dL (9-16); Calcium 7.6 mg/dL (8.4-10.2); Carbon Dioxide 14 mmol/L (22-29); Chloride 102 mmol/L (96-108); Creatinine Clr Calc Pharmacy 10.2; Estimated Glomerular Filt Rate 5; Potassium 6.1 mmol/L (3.3-5.1); Sodium 136 mmol/L (135-145)
--- NOTE | 2025-02-08 05:11 | PC.NURSE ---
notified hospitalist of abn lab creatnine 8.8 and K+ 6.1
[2025-02-08 06:52] LABS: Glucose, Whole Blood 249 mg/dL (60-115)
[2025-02-08] MEDS: 0.9 % Sodium Chloride Flush 3 ML SYRINGE IVFLUSH ×2 (08:21→16:32)
[2025-02-08] MEDS: Sodium Bicarbonate 8.4% 150 MEQ in Dextrose 5 % 850 ML 100 MEQ IV (10:27)
--- NOTE | 2025-02-08 11:54 | PHA.MEDREC ---
Pharmacy Consult ? Medication Reconciliation Pharmacy has completed the medication reconciliation. Spoke with patients sister, Josy, over the phone to confirm medications. She reports no changes to her medications from previous visit except she is on the prednisone taper (10 mg tabs). Directions: 4 tabs x3 days, 3 tabs x3 days, 2 tabs x3 days, 1 tab x3 days. Josy reports patient is on last day of 2 tabs x3 days (20 mg). She last took it yesterday. Josy confirmed patient is not currently taking any antibiotics. She last took eliquis last night. Josy confirmed she is still taking oxycodone 10 mg IR as needed and 10 mg ER BID.
--- NOTE | 2025-02-08 12:34 | PC.NURSE ---
Late entry: Care of Pt assumed at change of shift (0700.) Pt rests quietly this AM. She requests PRN pain med and Pt medicated per APR. Attending at bedside for eval. Pt requesting d/c later today. Per Dr. Shepherd, Pt will proceed to dialysis for treatment today and can be d/c'd home afterwards--charge account identification clerk aware. Pt leaves unit for dialysis at approx 1230. Pt will return to ED after treatment and be d/c'd from ED.
--- NOTE | 2025-02-08 13:25 | MHC.CM.PN ---
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
--- NOTE | 2025-02-08 15:21 | PM.DS ---
DS: Providers Provider Date of admission: 02/08/25 08:46 Date of discharge: 02/08/25 Primary care physician: Genevieve Casillas MD Consults: 02/08/25 05:29 Consult to Nephrology Routine Consulting Provider: Fernando Siddiqi Reason for consultation: ESRD on HD, patient missed HD Has provider been notified: Yes DS: Diagnosis Discharge Diagnosis (1) End-stage renal disease (ESRD): Status: Acute (2) Type II diabetes mellitus: Status: Acute (3) Acute hyperglycemia: Status: Acute DS: Summary Hospital Course Hospital Course: 34-year-old with a complex medical history, including end-stage renal disease on hemodialysis via permcath, anemia secondary to ESRD, insulin-dependent type II diabetes with diabetic retinopathy and blindness, chronic right foot wound, left [id number] amputation (performed by Dr. Rajput on Jan 05, 2025), hypertension, peripheral arterial disease, history of C. difficile infection, anxiety, depression, recent pulmonary embolism, status epilepticus, multiple sclerosis, cerebrovascular accident, sepsis/bacteremia, and prior central line infection, presented to the emergency department after missing a scheduled dialysis session on 02/05 due to running errands. The patient is being admitted to observation for hemodialysis. There is no evidence of diabetic ketoacidosis or acute clinical decompensation at this time. Repeat BMP at 0447: K 6.1, glucose 322, CO3 20->14, anion gap 21->26 ED Course Summary In the ED hypertensive (BP 213/112 mmHg), hyperglycemic (glucose >500 mg/dL), and hyperkalemic (K 5.7 mmol/L). IV insulin, antihypertensives (labetalol, hydralazine), and a potassium binder (Lokelma), resulting in partial improvement of her glucose and blood pressure. Hospital Course Admitted to telemetry and started on bicarb drip pending dialysis. After discussion with patient she is wishing to leave against advice however consider to stay and have dialysis and then be discharge. At this point she is medically acceptable to be discharged and will follow up as scheduled. She is encouraged to be compliant with hemodialysis Time Attestation Discharge Coordination Time (in mins): 35 Quality: Safe Use of Opioids Does Pt have an Active Cancer Diagnosis on the Problem List?: No Quality: Stroke Does the patient have a stroke diagnosis?: No Physical Exam Vital Signs: Vital Signs: Last Vital Signs Temp 97.8 F 02/08/25 06:17 Pulse 92 02/08/25 06:43 Resp 20 02/08/25 08:53 BP 183/89 H 02/08/25 06:43 Pulse Ox 97 02/08/25 06:43 O2 Del Method Room Air 02/08/25 06:17 O2 Flow Rate 3 02/08/25 04:10 BMI result Body Mass Index 34.0 Const: Other: Awake alert no acute distress Resp: Other: Clear to auscultation bilaterally no rales rhonchi or wheezes Cardio: Other: No S4; positive S1-S2; no S3 murmurs rubs or gallops GI: Other: Soft nontender nondistended normoactive bowel sounds Extrem: Other: No edema bilaterally DS: Data Data Completed and Pending Completed studies during hospitalization [Text1]: Procedures Detachment at Left 2nd Toe, Complete, Open Approach (09/08/23) Detachment at Left 3rd Toe, Complete, Open Approach (09/08/23) Detachment at Left 4th Toe, Complete, Open Approach (09/08/23) Detachment at Left Lower Leg, High, Open Approach (12/23/24) Detachment at Right Foot, Partial 1st Ray, Open Approach (03/01/20) Detachment at Right Foot, Partial 2nd Ray, Open Approach (03/01/20) Detachment at Right Foot, Partial 3rd Ray, Open Approach (03/01/20) Detachment at Right Foot, Partial 4th Ray, Open Approach (03/01/20) Detachment at Right Foot, Partial 5th Ray, Open Approach (03/01/20) Drainage of Right Pleural Cavity, Percutaneous Approach (01/14/21) Drainage of Spinal Canal, Percutaneous Approach, Diagnostic (09/05/24) Excision of Left Foot Muscle, Open Approach (01/14/24) Excision of Left Foot Skin, External Approach (10/08/23) Excision of Left Foot Subcutaneous Tissue and Fascia, Open Approach (10/29/24) Excision of Right Foot Skin, External Approach (07/31/24) Excision of Stomach, Pylorus, Via Natural or Artificial Opening Endoscopic, Diagnostic (08/27/22) Fluoroscopy of Spinal Cord (09/05/24) Fluoroscopy of Superior Vena Cava, Guidance (08/14/22) Insertion of Endotracheal Airway into Trachea, Via Natural or Artificial Opening (11/10/23) Insertion of Infusion Device into Right Atrium, Percutaneous Approach (02/25/24) Insertion of Infusion Device into Superior Vena Cava, Percutaneous Approach (05/25/24) Insertion of Infusion Device into Upper Vein, Percutaneous Approach (01/14/24) Insertion of Tunneled Vascular Access Device into Chest Subcutaneous Tissue and Fascia, Percutaneous Approach (05/25/24) Introduction of Other Thrombolytic into Peripheral Vein, Percutaneous Approach (09/05/24) Introduction of Vasopressor into Peripheral Vein, Percutaneous Approach (11/10/23) Isolation (11/10/23) Performance of Urinary Filtration, Intermittent, Less than 6 Hours Per Day (01/11/25) Removal of Infusion Device from Great Vessel, External Approach (01/14/21) Removal of Infusion Device from Great Vessel, Percutaneous Approach (05/25/24) Removal of Infusion Device from Heart, External Approach (01/14/24) Removal of Tunneled Vascular Access Device from Trunk Subcutaneous Tissue and Fascia, Open Approach (05/25/24) Respiratory Ventilation, Greater than 96 Consecutive Hours (11/10/23) Transfusion of Nonautologous Red Blood Cells into Peripheral Vein, Percutaneous Approach (11/10/23) Ultrasonography of Superior Vena Cava, Guidance (02/25/24) Labs on day of discharge: Laboratory Results - last 24 hr 02/07/25 02/07/25 02/07/25 21:50 22:48 22:48 WBC 11.5 H RBC 2.67 L D Hgb 8.2 L D Hct 24.3 L D MCV 91.0 MCH 30.7 MCHC 33.7 RDW 16.4 H Plt Count 125 L MPV 12.8 H Immature Gran % (Auto) Cancelled Neut % (Auto) Cancelled Lymph % (Auto) Cancelled [place] % (Auto) Cancelled Eos % (Auto) Cancelled Baso % (Auto) Cancelled Lymph # (Auto) Cancelled [place] # (Auto) Cancelled Eos # (Auto) Cancelled Baso # (Auto) Cancelled Abs Immat Gran (auto) Cancelled Absolute Neuts (auto) Cancelled Absolute Nucleated RBC 0.000 Nucleated RBC % (auto) 0.0 Neutrophils % (Manual) 95 H Band Neutrophils % 2 L Lymphocytes % (Manual) 2 L Monocytes % (Manual) 1 L Abs Neuts (Manual) 11.2 H Lymphocytes # (Manual) 0.2 L Monocytes # (Manual) 0.1 Platelet Estimate SLIGHTLY DECREASED Large Platelets PRESENT Plt Morphology Comment NORMAL RBC Morphology NOTED Spherocytes 1+ (0-2) Fareed Cells 1+ (0-2) Schistocytes 1+ (0-2) VBG pH VBG pCO2 VBG pO2 VBG HCO3 VBG O2 Saturation VBG Base Excess Sodium 133 L Potassium 5.7 H Chloride 98 Carbon Dioxide 20 L Anion Gap 21 H BUN 105 H Creatinine 8.68 H* Estim Creat Clear Calc 10.4 Estimated GFR 5 POC Glucose 439 H* Random Glucose 495 H* Calcium 7.6 L 7.6 L Phosphorus 7.5 H Magnesium 2.8 H Total Bilirubin 0.6 Direct Bilirubin 0.3 AST 29 ALT 34 H Alkaline Phosphatase 210 H Total Protein 6.5 Albumin 3.5 Beta-Hydroxybutyrate 0.11 Beta HCG, Quant < 2 Influenza Type A (PCR) NEGATIVE Influenza Type B (PCR) NEGATIVE RSV RNA Qual (PCR) NEGATIVE SARS-CoV-2 RNA (RT-PCR) NEGATIVE 02/07/25 02/08/25 02/08/25 22:55 00:30 02:42 WBC RBC Hgb Hct MCV MCH MCHC RDW Plt Count MPV Immature Gran % (Auto) Neut % (Auto) Lymph % (Auto) [place] % (Auto) Eos % (Auto) Baso % (Auto) Lymph # (Auto) [place] # (Auto) Eos # (Auto) Baso # (Auto) Abs Immat Gran (auto) Absolute Neuts (auto) Absolute Nucleated RBC Nucleated RBC % (auto) Neutrophils % (Manual) Band Neutrophils % Lymphocytes % (Manual) Monocytes % (Manual) Abs Neuts (Manual) Lymphocytes # (Manual) Monocytes # (Manual) Platelet Estimate Large Platelets Plt Morphology Comment RBC Morphology Spherocytes Fareed Cells Schistocytes VBG pH 7.37 VBG pCO2 37 VBG pO2 78 VBG HCO3 22 VBG O2 Saturation 93.0 VBG Base Excess -2.7 Sodium Potassium Chloride Carbon Dioxide Anion Gap BUN Creatinine Estim Creat Clear Calc Estimated GFR POC Glucose 323 H 330 H Random Glucose Calcium Phosphorus Magnesium Total Bilirubin Direct Bilirubin AST ALT Alkaline Phosphatase Total Protein Albumin Beta-Hydroxybutyrate Beta HCG, Quant Influenza Type A (PCR) Influenza Type B (PCR) RSV RNA Qual (PCR) SARS-CoV-2 RNA (RT-PCR) 02/08/25 02/08/25 04:47 06:48 WBC RBC Hgb Hct MCV MCH MCHC RDW Plt Count MPV Immature Gran % (Auto) Neut % (Auto) Lymph % (Auto) [place] % (Auto) Eos % (Auto) Baso % (Auto) Lymph # (Auto) [place] # (Auto) Eos # (Auto) Baso # (Auto) Abs Immat Gran (auto) Absolute Neuts (auto) Absolute Nucleated RBC Nucleated RBC % (auto) Neutrophils % (Manual) Band Neutrophils % Lymphocytes % (Manual) Monocytes % (Manual) Abs Neuts (Manual) Lymphocytes # (Manual) Monocytes # (Manual) Platelet Estimate Large Platelets Plt Morphology Comment RBC Morphology Spherocytes [place] Cells Schistocytes VBG pH VBG pCO2 VBG pO2 VBG HCO3 VBG O2 Saturation VBG Base Excess Sodium 136 Potassium 6.1 H* Chloride 102 Carbon Dioxide 14 L Anion Gap 26 H BUN 111 H Creatinine 8.85 H* Estim Creat Clear Calc 10.2 Estimated GFR 5 POC Glucose 249 H Random Glucose 322 H Calcium 7.6 L Phosphorus Magnesium Total Bilirubin Direct Bilirubin AST ALT Alkaline Phosphatase Total Protein Albumin Beta-Hydroxybutyrate Beta HCG, Quant Influenza Type A (PCR) Influenza Type B (PCR) RSV RNA Qual (PCR) SARS-CoV-2 RNA (RT-PCR) Discharge Plan Discharge Anticipated Discharge Date/Time: 02/08/25 15:16 Patient Disposition: Home, Self-Care Discharge Diagnosis: Hyperkalemia Referrals: Vern [Outside] - 1 Week Genevieve Gtz MD [Primary Care Provider, Internal Medicine] - 1 Week Discharge Medications: New Lokelma 10 gram powder in packet See Rx Instructions .ROUTE .COMPLEX Qty: 12 1RF Rx Instructions: 10 g orally: Daily Sunday Continued carvedilol 12.5 mg Tablet 12.5 mg PO BID 90 Days Qty: 180 0RF Protocol: Hold for SBP/HR < HOLD for SBP < : 90 HOLD for HR < : 60 hydralazine 50 mg Tablet 50 mg PO TID 90 Days Qty: 270 0RF Protocol: Hold for SBP< HOLD for SBP < : 90 (DME) FreeStyle Lite Strips Strip Qty: 100 0RF Rx Instructions: Test four times a day or as directed. (DME) blood-glucose meter [FreeStyle Lite Meter] Kit Qty: 1 0RF Rx Instructions: As Directed (DME) pen needle, diabetic 32 gauge x 1/4 needle Qty: 100 0RF Rx Instructions: Use four times a day or as directed. (DME) lancets [FreeStyle Lancets] 28 gauge misc Qty: 100 0RF Rx Instructions: Test four times a day or as directed. metoclopramide HCl [Reglan] 10 mg tablet 10 mg PO Q6H PRN (Reason: nausea and vomiting) Qty: 14 0RF levetiracetam [Keppra] 500 mg tablet 1,500 mg PO BID lidocaine 4 % Adhesive Patch,Medicated 1 patch TOPICAL DAILY PRN (Reason: Pain) nitroglycerin 0.4 mg tablet, sublingual 0.4 mg sublingual DIRECTED PRN (Reason: Angina) albuterol sulfate [Ventolin HFA] 90 mcg/actuation HFA aerosol inhaler 2 puff inhalation Q6H PRN (Reason: wheezing) calcium carbonate [Tums] 200 mg calcium (500 mg) Tablet,Chewable 200 mg PO TIDWM PRN (Reason: Acid Reflux) acetaminophen 325 mg tablet 975 mg PO Q4H PRN (Reason: mild pain) 30 Days Qty: 90 0RF amlodipine 2.5 mg Tablet 7.5 mg PO BEDTIME Qty: 90 0RF Protocol: Hold for SBP< HOLD for SBP < : 90 Eliquis 2.5 mg Tablet 2.5 mg PO BID Qty: 180 0RF valproic acid 250 mg Capsule 500 mg PO TID Qty: 270 0RF bisacodyl 5 mg Tablet,Delayed Release (Dr/Ec) 10 mg PO BEDTIME PRN (Reason: Constipation) Qty: 90 0RF docusate sodium [Colace] 100 mg capsule 100 mg PO BID Qty: 180 0RF oxycodone 10 mg tablet 10 mg PO Q8H PRN (Reason: pain) 5 Days Qty: 24 0RF Rx Instructions: Partial Fill upon patient request. oxycodone [OxyContin] 10 mg Tablet,Oral Only,Ext.Rel.12 Hr 10 mg PO BID 10 Days Qty: 20 0RF Rx Instructions: Partial Fill upon patient request. insulin lispro [Admelog SoloStar U-100 Insulin] 100 unit/mL insulin pen 1 sliding scale dose subcut USEASDIRECTD MDD 45 Qty: 15 0RF Rx Instructions: BG <111 0 units, 111-150 - 0 units, 151-200 2 units, 201-250 4 units, 251-300 6 units, 301-350 8 units, >350 10 units (DME) commode Kit See Rx Instructions .Route Qty: 1 0RF Rx Instructions: As directed dextrose [Glucose Gel] 40 % gel 15 g PO Q15M PRN (Reason: For blood sugar less than 70) Qty: 300 0RF Rx Instructions: until symptoms of low blood sugar are controlled prednisone 10 mg tablet See Taper PO DAILY Taper: Prednisone 20 mg daily for 1 Day and 0 Hour 10 mg daily for 3 Days and 0 Hour Rx Instructions: 02/08/25: 4 tabs x3 days, 3 tabs x3 days, 2 tabs x2 days, 1 tab x3 days. Per patients sister (Josy), patient is on last day of 2 tabs (20 mg) x3 days. polyethylene glycol 3350 [Miralax] 17 gram/dose powder 17 g PO DAILY PRN (Reason: Constipation) Discharge Orders: Discharge Order (Routine); Ordered 02/08/25 Ordered By: Steve Shepherd Diet: Advance to usual diet Activity on Discharge: As tolerated Stand Alone Forms: Patient Portal Discharge page Print Language: Hungarian Care Plan Goals: Resume all medications as taken prior to hospitalization. Be compliant with hemodialysis Health Concerns: Lokelma 10 mg has been added Sunday and Sunday. Follow up with renal and they will discuss further plans Plan of Treatment: Follow up with PCP next available Assessment: See discharge summary
== END 2025-02-08 19:14 | disposition home or self-care (01) | DRG 640 ==
LOC: HO.ED 02-08 02:28 → HO.EDOVER 02-08 03:11
PROVIDERS: Admitting Provider Family Medicine; Emergency Provider Emergency Medicine Emergency Medical Services; PCP Student in an Organized Health Care Education/Training Program; Visit Provider Hospitalist
DX: E87.5 Hyperkalemia (principal); N18.6 End stage renal disease; I13.2 Hypertensive heart and chronic kidney disease with heart failure and with stage 5 chronic kidney disease, or end stage renal disease; E11.65 Type 2 diabetes mellitus with hyperglycemia; I16.0 Hypertensive urgency; E11.22 Type 2 diabetes mellitus with diabetic chronic kidney disease; Z20.822 Contact with and (suspected) exposure to COVID-19; Z99.2 Dependence on renal dialysis; D63.1 Anemia in chronic kidney disease; E11.319 Type 2 diabetes mellitus with unspecified diabetic retinopathy without macular edema; E11.42 Type 2 diabetes mellitus with diabetic polyneuropathy; G35.D Multiple sclerosis, unspecified; Z91.158 Patient's noncompliance with renal dialysis for other reason; Z89.512 Acquired absence of left leg below knee; Z91.148 Patient's other noncompliance with medication regimen for other reason; Z79.01 Long term (current) use of anticoagulants; Z79.52 Long term (current) use of systemic steroids; Z79.899 Other long term (current) drug therapy
CPT/HCPCS: 36415; 71045; 80048; 80076; 82010; 82310; 82803; 82947; 83735; 84100; 84702; 85007; 85025; 85027; 87637; 90999; 93005; 99222; 99285; J0360; J1171; J1200; J1920; J2405

== ENCOUNTER → 2025-02-07 21:22 | Outpatient (BNV) | payer OTHER, SELFPAY | PROVIDERS: Emergency Provider Emergency Medicine Emergency Medical Services; PCP Student in an Organized Health Care Education/Training Program; Visit Provider Radiology Diagnostic Radiology | DX: I51.7 Cardiomegaly (principal); Z95.9 Presence of cardiac and vascular implant and graft, unspecified | CPT/HCPCS: 71045 ==

== ENCOUNTER → 2025-02-07 21:22 | Outpatient (BNV) | payer OTHER, SELFPAY | PROVIDERS: Admitting Provider Family Medicine; Emergency Provider Emergency Medicine Emergency Medical Services; PCP Student in an Organized Health Care Education/Training Program; Visit Provider Internal Medicine Cardiovascular Disease | DX: I45.10 Unspecified right bundle-branch block (principal) | CPT/HCPCS: 93010 ==

== ENCOUNTER → 2025-02-08 02:51 | Outpatient (BNV) | payer OTHER, SELFPAY | PROVIDERS: Admitting Provider Family Medicine; Emergency Provider Emergency Medicine Emergency Medical Services; PCP Student in an Organized Health Care Education/Training Program; Visit Provider Family Medicine | DX: N18.6 End stage renal disease (principal); E11.65 Type 2 diabetes mellitus with hyperglycemia | CPT/HCPCS: 99235; 99499 ==

== ENCOUNTER 2025-02-08 08:46 | Outpatient (BNV) | payer OTHER, SELFPAY | END 2025-02-08 09:28 | PROVIDERS: Admitting Provider Family Medicine; Emergency Provider Emergency Medicine Emergency Medical Services; PCP Student in an Organized Health Care Education/Training Program; Visit Provider Internal Medicine Cardiovascular Disease | DX: R00.0 Tachycardia, unspecified (principal); I45.10 Unspecified right bundle-branch block | CPT/HCPCS: 93010 ==

== ENCOUNTER 2025-02-10 12:19 | Inpatient (IN) | payer OTHER, SELFPAY ==
--- OUTSIDE RECORDS SUMMARY | 2025-02-06 11:00 | XMS_ITS | Encounter Summary ---
Author Organization [facility] Address [address] [place] [address] Phone Care Team Providers Care Surgical Rn Name Role Phone Genevieve Gtz MD Primary Care Pro vider Reason for Visit * Auth/Cert (Routine) Specialty Diagnoses / Procedures Referred By Contac t Referred To Contact Referral ID Status Reason Start Date Expiration Date Visits Re quested Visits Authorized [id number] 1 1 Encounter Details Date Type Department Care Team ([facility] Contact Info) Description 02/06/2025 11:00 AM EST Home Care Visit [facility] [address] [place] [phone] Araceli Alvarez, KIRIT [address] [place] [address] [email or web address] SN HOME VISIT Social [...] Care Team (Late st Contact Info) Description 02/11/2025 3:00 AM EST Appointment [facility] [address] [place] [phone] Adriana Lopez LPN [address] [place] [address] 02/13/2025 4:30 AM EST Appointment [facility] [address] [place] [address] Araceli Alvarez, KIRIT [address] [place] [address] 02/16/2025 12:30 AM EST Appointment [facility] [address] [place] [address] Araceli Alvarez RN [address] [place] [address] 02/18/2025 4:30 AM EST Appointment [facility] [address] [place] [phone] Araceli Alvarez RN [address] [place] [address] [email or web address] 02/20/2025 2:30 AM EST Appointment [facility] [address] [place] [phone] Araceli Alvarez, RN [address] [place] [address] [email or web address] 02/23/2025 1:00 AM EST Appointment [facility] [address] [place] [phone] Araceli Alvarez, RN [address] [place] [address] 02/25/2025 4:00 AM EST Appointment [facility] [address] [place] [phone] Araceli Alvarez, RN [address] [place] [address] [email or web address] 02/27/2025 3:00 AM EST Appointment [facility] [address] [place] [phone] Araceli Alvarez, RN [address] [place] [address] [email or web address] 03/02/2025 2:00 AM EST Appointment [facility] [address] [place] [phone] Araceli Alvarez, RN [address] [place] [address] [email or web address] 03/04/2025 3:00 AM EST Appointment [facility] [address] [place] [phone] Araceli Alvarez, RN [address] [place] [address] [email or web address] 03/06/2025 2:00 AM EST Appointment [facility] [address] [place] [phone] DadAraceli art RN [address] [place] [address] 03/09/2025 2:00 AM EST Appointment [facility] [address] [place] [phone] Araceli Alvarez RN [address] [place] [address] documented as of this encounter Visit Diagnoses Not on filedocumented in this encounter Home Health Visit - Care Plan Visit Details Visit Type -SN HOME VISIT Discipline -Care Home Problems Problem Description Start Date Status Goals Interve ntions HH - Wound Disciplines: All Active Home Health Disciplines, Care Home 01/10/2025 Active - 2 problem interventions [...] list as needed. Problem:HH - Medication Management Goal:HH - Safe medication management, avoid unnecessary harm related to medication errors and/or interactions Performed HH - Complete medication review every visit and medication reconciliation as indicated. [facility] information: [facility] [address] [facility] [place] Problem:HH - Medication Management Goal:HH - Safe medication management, avoid unnecessary harm related to medication errors and/or interactions Performed HH - Focus of care, teaching [...] . Instruction Provided to: patient Response to Instruction/Teachin g: Is partially able to teach back [...] Performed documented in this encounter Care Teams Surgical Rn Relationship Specialty Start Date End Date Genevieve Gtz MD [address] [place] [address] PCP - General Internal Medicine 11/06/24 documented as of this encounter Additional Source Comments The information contained in this document represents components of the legal health record. It is not the complete legal health record.[facility]
--- OUTSIDE RECORDS SUMMARY | 2025-02-09 11:00 | XMS_ITS | Encounter Summary ---
Author Organization [facility] Address [address] [place] [address] Phone Care Team Providers Care Product Development Intern Name Role Phone Genevieve Gtz MD Primary Care Pro vider Reason for Visit * Auth/Cert (Routine) Specialty Diagnoses / Procedures Referred By Contac t Referred To Contact Referral ID Status Reason Start Date Expiration Date Visits Re quested Visits Authorized [id number] 1 1 Encounter Details Date Type Department Care Team ([facility] Contact Info) Description 02/09/2025 11:00 AM EST Home Care Visit [facility] [address] [place] [phone] Araceli Alvarez, KIRIT [address] [place] [address] [email or web address] [...] Sign Reading Time Taken Comments Blood Pressure 110/70 02/09/2025 11:00 AM EST Pulse 80 02/09/2025 11:00 AM EST Temperature 36.2 C (97.2 F) 02/09/2025 11:00 AM EST Respiratory Rate 16 02/09/2025 11:00 AM EST Oxygen Saturation 98% 02/09/2025 11:00 AM EST Inhaled Oxygen Concentration - - Weight - - Height - - Body Mass Index - - documented in this encounter Plan of Treatment Upcoming Encounters Date Type Department Care Team (Late st Contact Info) Description 02/11/2025 3:00 AM EST Appointment [facility] [address] [place] [phone] Adriana Lopez LPN [address] [place] [address] 02/13/2025 4:30 AM EST Appointment [facility] [address] [place] [address] Araceli Alvarez RN [address] [place] [phone] 02/16/2025 12:30 AM EST Appointment [facility] [address] [place] [address] Araceli Alvarez RN [address] [place] [address] 02/18/2025 4:30 AM EST Appointment [facility] [address] [place] [phone] Araceli Alvarez RN [address] [place] [address] 02/20/2025 2:30 AM EST Appointment [facility] [address] [place] [phone] Araceli Alvarez, RN [address] [place] [address] 02/23/2025 1:00 AM EST Appointment [facility] [address] [place] [phone] Araceli Alvarez, RN [address] [place] [address] 02/25/2025 4:00 AM EST Appointment [facility] [address] [place] [phone] Araceli Alvarez, RN [address] [place] [address] 02/27/2025 3:00 AM EST Appointment [facility] [address] [place] [phone] Araceli Alvarez, RN [address] [place] [address] 03/02/2025 2:00 AM EST Appointment [facility] [address] [place] [phone] Araceli Alvarez, RN [address] [place] [address] 03/04/2025 3:00 AM EST Appointment [facility] [address] [place] [phone] Araceli Alvarez, RN [address] [place] [address] 03/06/2025 2:00 AM EST Appointment [facility] [address] [place] [phone] [email or web address] art RN [address] [place] [address] [email or web address] 03/09/2025 2:00 AM EST Appointment [facility] [address] [place] [phone] Araceli Alvarez RN [address] [place] [address] [email or web address] documented as of this encounter Visit Diagnoses Not on filedocumented in this encounter Home Health Visit - Care Plan Visit Details Visit Type -SN HOME VISIT Discipline -Longterm Problems Problem Description Start Date Status Goals Interve ntions HH - Wound Disciplines: All Active Home Health Disciplines, Longterm 01/10/2025 Active - 2 problem interventions scheduled/document [...] information: Description: [facility] [address] [facility] [place] Problem: - Medication Management Goal:HH - Safe medication management, avoid unnecessary harm related to medication errors and/or interactions Performed - Focus of care, teaching completed and plan for next visit Problem: - Focus of Care and Teaching Goal:HH - Communication and collaboration to achieve patient goals Performed Primary Clinical Focus this Visit & Instruction Provided: Patient was seen today for a assisted visit, vital signs remained stable, wound care provided per POC same well tolerated by patient, supplies ordered. Instruction Provided to: patient an d caregiver Response to Instruction/Teachin g: Is partially able to teach back topics as evidenced by verbalizing understanding. Plan for Next Visit Specific Focus & Education Needed: Patient will require head to toe reassessment, vital signs recheck, w ound care and management New Orders: None Updated Discharge Plan: Patient will be discharged from homecare services once goals are met HH - I/E management of care in an urgent or emergency (ER) situation: When to call your Home Care Team/[facility], ER plans, supplies, evacuation, when to contact local ER officials and how to stay informed Problem:HH - Emergency Planning - Knowledge of Goal:HH - Knowledge of options for managing care in the event of an emergency related situation. Performed - Emergency planning assessment: the emergency plan, [...] Performed documented in this encounter Care Teams Product Development Intern Relationship Specialty Start Date End Date Genevieve Gtz MD [address] [place] [address] PCP - General Internal Medicine 11/06/24 documented as of this encounter Additional Source Comments The information contained in this document represents components of the legal health record. It is not the complete legal health record.[facility]
[2025-02-10] VITALS (8 sets, daily range): BP systolic 135–190; BP diastolic 68–99; PULSE 89–150; RESP 12–22; TEMP 36.2–38.2; O2SAT 92–100; BMI 32.0
--- NOTE | ~2025-02-10 | CT_ITS ---
EXAMINATION: CT FEMUR WITH IV CONTRAST LEFT HISTORY: infection COMPARISON: Previous x-rays February 02, 2025 TECHNIQUE: Helical CT scan of the left lower extremity following 85 mL of Omnipaque 350 IV contrast. Sagittal and coronal reconstructions on the technologist work station were performed. This CT exam was performed with one or more of the following dose reduction techniques: automated exposure control, adjustment of the mA and/or kV according to patient size, use of iterative reconstruction technique. DLP: 487 mGy-cm Findings: There is a below-knee amputation. There is a multiloculated thick walled fluid collection seen adjacent to the resected distal tibia measuring 4.5 x 4.7 x 2.8 cm. There is surrounding fat stranding and mild skin thickening. Appearance is suggestive of a small abscess. This abuts the resected tibial shaft. No bone destruction is seen and the surgical margin appears sharp. No definite evidence of osteomyelitis is seen. No fracture or dislocation. The hip and knee joints are normal. There is severe atherosclerotic disease. There is trace ascites in the pelvis. There is mild diverticulosis of the colon.. CT/CT femur LT w IV con Impression: 4.5 x 4.7 x 2.8 cm multiloculated thick-walled fluid collection adjacent to the remaining distal tibial shaft. This may represent an abscess. Surgical amputation margin is sharp without evidence of bone destruction and no evidence of osteomyelitis is seen. Severe atherosclerotic disease. Electronically signed by: Ivette Crystal MD 02/10/2025 05:24 PM EST
--- NOTE | 2025-02-10 12:23 | ECG_ITS ---
Test Reason : CHEST PAIN Blood Pressure : */* mmHG Vent. Rate : 117 BPM Atrial Rate : 117 BPM P-R Int : 156 ms QRS Dur : 138 ms QT Int : 346 ms P-R-T Axes : 34 -17 42 degrees QTcB Int : 482 ms Sinus tachycardia Right bundle branch block Abnormal ECG When compared with ECG of 08-Feb-2025 09:28, No significant change was found Referred By: Generic ED Physician Electronically Signed By: Vinny Vera
[2025-02-10 13:07] LABS: MANUAL DIFF FLAG NO
[2025-02-10 13:11] LABS: Hematocrit 24.2 % (37.0-47.0); Hemoglobin 8.1 g/dl (12.0-16.0); Imm Gran Abs Auto 0.06 X10*3/uL (0.00-0.03); Imm Gran Pct Auto 0.9 % (0.0-0.4); Lymphocytes Absolute Auto 0.3 X10*3/uL (1.2-4.9); Mean Corpuscular HGB Conc 33.5 g/dl (31.0-35.0); Mean Corpuscular Hemoglobin 31.3 pg (27.0-33.0); Mean Corpuscular Volume 93.4 fL (80.0-98.0); NRBC Abs Auto 0.000 X10*3/uL (0.0-0.012); NRBC Pct Auto 0.0 /100WBC (0.0-0.2); Platelet Count 166 X10*3/uL (160-400); Red Blood Count 2.59 X10*6/uL (4.20-5.50); White Blood Count 6.4 X10*3/uL (4.8-10.8)
[2025-02-10 13:12] LABS: Venous Blood Gas Refer to POC result
[2025-02-10 13:14] LABS: VBG HCO3 23 mmol/L (22-26)
[2025-02-10 13:21] LABS: INTERNATIONAL NORM RATIO 1.2 (0.9-1.1); Prothrombin Time 14.3 SEC (11.2-13.5)
[2025-02-10 13:36] LABS: Alanine Aminotransferase 21 U/L (0-31); Albumin Level 3.3 g/dL (3.5-5.0); Alkaline Phosphatase 198 U/L (39-117); Anion Gap 20 (12-20); Aspartate Amino Transferase 36 U/L (5-31); Blood Urea Nitrogen 68 mg/dL (9-16); Calcium 7.0 mg/dL (8.4-10.2); Carbon Dioxide 23 mmol/L (22-29); Chloride 101 mmol/L (96-108); Creatinine Clr Calc Pharmacy 12.8; Estimated Glomerular Filt Rate 7; Potassium 5.2 mmol/L (3.3-5.1); Sodium 139 mmol/L (135-145); Total Protein 6.4 g/dL (6.5-8.0); Troponin-I High Sensitivity 78.7 ng/L (<3.5-17.0)
--- NOTE | 2025-02-10 14:38 | ED.CHESTPAIN ---
HPI - Chest Pain General Chief Complaint: Chest Pain Stated Complaint: Unable to do dialysis due to chest pain Time Seen by Provider: 02/10/25 13:57 Source: patient Mode of arrival: ambulatory Limitations: no limitations History of Present Illness ED Provider: Dr. Sánchez HPI narrative: This is a 34-year-old female history of ESRD Sunday dialysis follow up with Dr. Siddiqi for her dialysis knee presented hospital today for chest pain and left thumb pain. Patient was at dialysis center today when she has chest pain. Dialysis center sent her to the ER for further evaluation. Patient is noted to be tachycardic with fever. She is also complaining of throbbing pain in her left stump. Did not receive her dialysis today. Related Data Home Medications ?Medication ?Instructions ?Recorded ?Confirmed albuterol sulfate 90 mcg/actuation 2 puff inhalation Q6H PRN wheezing 01/15/24 02/08/25 aerosol inhaler (Ventolin HFA) nitroglycerin 0.4 mg sublingual 0.4 mg sublingual DIRECTED PRN 01/15/24 02/08/25 tablet Angina calcium carbonate (Tums) 200 mg PO TIDWM PRN Acid Reflux 07/03/24 02/08/25 levetiracetam 500 mg tablet 1,500 mg PO BID 02/02/25 02/08/25 (Keppra) lidocaine 4 % topical patch 1 patch topical DAILY PRN Pain 02/02/25 02/08/25 polyethylene glycol 3350 17 17 g PO DAILY PRN Constipation 02/08/25 02/08/25 gram/dose oral powder (Miralax) prednisone 10 mg tablet See Taper PO DAILY 02/08/25 02/08/25 Previous Rx's ?Medication ?Instructions ?Recorded carvedilol 12.5 mg tablet 12.5 mg PO BID 90 days #180 tabs 12/16/23 hydralazine 50 mg tablet 50 mg PO TID 90 days #270 tabs 12/16/23 blood sugar diagnostic (FreeStyle #100 ea 08/26/24 Lite Strips) blood-glucose meter (FreeStyle #1 ea 08/26/24 Lite Meter kit) lancets 28 gauge (FreeStyle #100 ea 08/26/24 Lancets) pen needle, diabetic 32 gauge x #100 ea 08/26/24 1 metoclopramide HCl 10 mg tablet 10 mg PO Q6H PRN nausea and 12/19/24 (Reglan) vomiting #14 tabs acetaminophen 325 mg tablet 975 mg (3 x 325 mg) PO Q4H PRN 01/08/25 mild pain 30 days #90 tabs amlodipine 2.5 mg tablet 7.5 mg PO BEDTIME #90 tabs 01/30/25 apixaban 2.5 mg tablet (Eliquis) 2.5 mg PO BID #180 tabs 01/30/25 bisacodyl 5 mg tablet,delayed 10 mg (2 x 5 mg) PO BEDTIME PRN 01/31/25 release Constipation #90 tabs commode #1 ea 01/31/25 dextrose 40 % oral gel (Glucose 15 g PO Q15M PRN For blood sugar 01/31/25 Gel) less than 70 #300 grams docusate sodium 100 mg capsule 100 mg PO BID #180 caps 01/31/25 (Colace) insulin lispro 100 unit/mL 1 sliding scale dose subcut 01/31/25 subcutaneous pen (Admelog SoloStar USEASDIRECTD #15 mL U-100 Insulin lispro) oxycodone 10 mg tablet 10 mg PO Q8H PRN pain 5 days #24 01/31/25 tabs oxycodone 10 mg tablet,crush 10 mg PO BID 10 days #20 tabs 01/31/25 resistant,extended release 12 hr (OxyContin) valproic acid 250 mg capsule 500 mg (2 x 250 mg) PO TID #270 01/31/25 caps sodium zirconium cyclosilicate 10 See Rx Instructions .Route 02/08/25 gram oral powder packet (Lokelma) .COMPLEX #12 ea Allergies Allergy/AdvReac Type Severity Reaction Status Date / Time gabapentin Allergy Severe Facial Verified 02/10/25 12:33 Swelling tramadol Allergy Severe Facial Verified 02/10/25 12:33 Swelling azithromycin (From Zithromax) Allergy Intermediate Hives Verified 02/10/25 12:33 morphine (MORPHINE) Allergy Intermediate Itching Verified 02/10/25 12:33 vancomycin AdvReac Intermediate Itching Verified 02/10/25 12:33 Review of Systems Review of Systems: Pertinent review of systems as mentioned in HPI. All other system otherwise negative. [facility] Past Medical History [facility] Narrative: Medical history as mentioned in HPI Medical History Central pontine myelinolysis ESRD on hemodialysis End-stage renal disease (ESRD) Cardiomyopathy Cerebral microvascular disease Steroid-induced hyperglycemia Relapsing remitting multiple sclerosis Renal failure Multiple sclerosis Cerebral infarction Hyperkalemia ESRD on dialysis Hypoxia End stage renal disease on dialysis Chronic ulcer of right foot due to diabetes mellitus Chronic ulcer of left foot due to diabetes mellitus DM foot ulcer Hypotonic neurogenic bladder Diabetic polyneuropathy Hypertensive emergency Decompensated heart failure Renal failure Hypertension, uncontrolled Medical non-compliance Pericarditis Unspecified hypertension, condition or complication Metabolic acidosis Gastroparesis End stage chronic kidney disease Chronic kidney disease Anemia Plantar ulcer of left foot MDD (major depressive disorder) CKD (chronic kidney disease) Hypertension Vomiting Chronic pain Non-compliance with renal dialysis Diabetic foot ulcer associated with type 2 diabetes mellitus HFrEF (heart failure with reduced ejection fraction) delivery delivered Anemia in chronic kidney disease (CKD) CKD (chronic kidney disease) Abnormal finding on echocardiogram Elevated troponin Acute worsening of stage 3 chronic kidney disease Generalized edema Sepsis Cellulitis Pleural effusion Atypical chest pain Bone infection PAD (peripheral artery disease) Cellulitis and abscess of foot Osteomyelitis Asthma Depression with anxiety Diabetic retinopathy Blind right eye Diabetes Back pain Surgical History Below-knee amputation of left lower extremity (~01/05/25) Tubal ligation status Previous section Hx laparoscopic cholecystectomy Hx of surgical procedure (~09/11/23) 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 Family History Family History Mother Coronary artery disease Myocardial infarction Stroke Diabetes mellitus Father Myocardial infarction Social History Social History Household Members: Family Household Members Other:: sister, brother, [id number] Housing: Apartment Housing Other:: Apartment, 1st floor Are you a primary reproductive healthcare assistant to a significant other at home: No Do you presently have visiting nurse or other home services: No Alcohol intake: never Comment: patient refusing bed alarm Patient Tobacco Use Status: Never used Tobacco e-Cigarette/Vaping Use: Never Used Second Hand Smoke Exposure: No Advance Directives: Yes Advance Directives on File: Yes Advance Directives Date on File: 09/04/23 service: No Current occupational status: unemployed and disabled Gender identity: Female Physical Exam Exam: Exam: General: Appears irritated Head: Normacephalic, atraumatic ENT: oral mucosa moist, neck supple, no tracheal deviation Cardiovascular: Tachycardia rate, regular rhythm, no murmurs, rubbing, gallops Respiratory: CTAB, no wheeze, rales, rhonchi Gastrointestinal: Soft, non distended, non tender, non guarding Extremities: Left lower extremity stump has some signs of wound dehiscence, there is some redness and warmness around the stump Neurological: Awake and alert, no facial droop noted Skin: Warm and dry Psychiatric: Appropriate mood and thoughts Vital Signs: Vital Signs: Last Vital Signs Temp 98.8 F 02/10/25 17:10 Pulse 94 02/10/25 18:11 Resp 16 02/10/25 18:11 BP 155/89 H 02/10/25 18:11 Pulse Ox 100 02/10/25 18:11 O2 Del Method Room Air 02/10/25 18:11 Oxygen Flow Rate 2 02/10/25 12:33 BMI result Body Mass Index 32.0 Medications Administered Discontinued Medications Generic Name Dose Route Start Last Admin Trade Name Brandon PRN Reason Stop Dose Admin Fentanyl 100 mcg 02/10/25 18:03 02/10/25 18:10 Fentanyl Citrate/Pf 100 Mcg/2 Ml Vial IVPUSH 02/10/25 18:04 100 mcg ONCE ONE Administration Protocol Hydromorphone HCl 0.5 mg 02/10/25 14:56 02/10/25 15:18 Hydromorphone Hcl 0.5 Mg/0.5 Ml Syringe IVPUSH 02/10/25 14:57 0.5 mg ONCE ONE Administration Protocol Piperacillin Sod/Tazobactam 100 mls @ 200 mls/hr 02/10/25 14:57 02/10/25 16:52 Sod 4.5 gm/ Sodium Chloride IV 02/10/25 15:26 Infused ONCE ONE Infusion Iohexol 100 ml 02/10/25 16:44 02/10/25 16:46 Iohexol 350 Mg/Ml 100 Ml Infus..Btl IV 02/10/25 16:45 85 ml ONCE ONE Administration Ondansetron HCl 4 mg 02/10/25 16:53 02/10/25 17:08 Ondansetron Hcl 4 Mg/2 Ml Vial IVPUSH 02/10/25 16:54 4 mg ONCE ONE Administration Medical Decision Making Medical Decision Making [facility] Narrative: 34-year-old female history of ESRD Sunday dialysis presented hospital today for evaluation of chest pain and left thumb pain. ACS workup will be obtained. We will also obtain lactic acid blood cultures CBC CMP for the patient. We will obtain a CT imaging of the left stump evaluate for any signs of abscesses recurrence or osteomyelitis. Lab work did not show any signs of leukocytosis slight anemia 8.1, patient's has slight hyperkalemia at 5.2, creatinine 6.86. Troponin is elevated 1st one is 78. 2nd one is 87.2. Femur imaging shows signs of an abscess 4.5 x 4.7 x 2.8 cm multiloculated thick-walled fluid collection. Zosyn will be given for broad-spectrum antibiotic coverage. Discussed the case with the hospitalist Dr. Blanton. He feels as this case is better served under surgical service and admission with medicine as consulting. Patient will be admitted to the hospital. Differential Diagnosis Differential Diagnoses: The differential diagnosis associated with the presentation includes abscess, cellulitis, sepsis Lab Data [facility] Lab Attestation statement: I reviewed the patient's lab results. 02/10/25 13:01 02/10/25 12:59 Labs: Lab Results 02/10/25 02/10/25 02/10/25 Range/Units 12:59 12:59 13:00 WBC (4.8-10.8) X10*3/uL RBC (4.20-5.50) X10*6/uL Hgb (12.0-16.0) g/dl Hct (37.0-47.0) % MCV (80.0-98.0) fL MCH (27.0-33.0) pg MCHC (31.0-35.0) g/dl RDW (11.0-16.0) % Plt Count (160-400) X10*3/uL MPV (9.4-12.3) fL Immature Gran % (Auto) (0.0-0.4) % Neut % (Auto) (45-73) % Lymph % (Auto) (20-40) % [place] % (Auto) (2-11) % Eos % (Auto) (0-4) % Baso % (Auto) (0-2) % Lymph # (Auto) (1.2-4.9) X10*3/uL [place] # (Auto) (0.1-1.2) X10*3/uL Eos # (Auto) (0.0-0.4) X10*3/uL Baso # (Auto) (0.0-0.2) X10*3/uL Abs Immat Gran (auto) (0.00-0.03) X10*3/uL Absolute Neuts (auto) (2.0-8.3) x10*3/uL Absolute Nucleated RBC (0.0-0.012) X10*3/uL Nucleated RBC % (auto) (0.0-0.2) /100WBC PT 14.3 H (11.2-13.5) SEC INR 1.2 H (0.9-1.1) VBG pH (7.32-7.43) VBG pCO2 mmHg VBG pO2 mmHg VBG HCO3 (22-26) mmol/L VBG Base Excess mmol/L Sodium 139 (135-145) mmol/L Potassium 5.2 H (3.3-5.1) mmol/L Chloride 101 (96-108) mmol/L Carbon Dioxide 23 (22-29) mmol/L Anion Gap 20 (12-20) BUN 68 H (9-16) mg/dL Creatinine 6.86 H* (0.5-1.4) mg/dL Estim Creat Clear Calc 12.8 Estimated GFR 7 Random Glucose 89 (60-115) mg/dL Lactic Acid 1.6 (0.5-2.0) mmol/L Calcium 7.0 L D (8.4-10.2) mg/dL Total Bilirubin 0.6 (0.0-1.0) mg/dL AST 36 H (5-31) U/L ALT 21 (0-31) U/L Alkaline Phosphatase 198 H (39-117) U/L Troponin I High Sens 78.7 H* D (<3.5-17.0) ng/L Total Protein 6.4 L (6.5-8.0) g/dL Albumin 3.3 L (3.5-5.0) g/dL Beta HCG, Quant < 2 Cancelled mIU/mL 02/10/25 02/10/25 02/10/25 Range/Units 13:01 13:05 15:26 WBC 6.4 (4.8-10.8) X10*3/uL RBC 2.59 L (4.20-5.50) X10*6/uL Hgb 8.1 L (12.0-16.0) g/dl Hct 24.2 L (37.0-47.0) % MCV 93.4 (80.0-98.0) fL MCH 31.3 (27.0-33.0) pg MCHC 33.5 (31.0-35.0) g/dl RDW 16.1 H (11.0-16.0) % Plt Count 166 D (160-400) X10*3/uL MPV 12.1 (9.4-12.3) fL Immature Gran % (Auto) 0.9 H (0.0-0.4) % Neut % (Auto) 82.8 H (45-73) % Lymph % (Auto) 3.9 L (20-40) % [place] % (Auto) 10.5 (2-11) % Eos % (Auto) 1.7 (0-4) % Baso % (Auto) 0.2 (0-2) % Lymph # (Auto) 0.3 L (1.2-4.9) X10*3/uL [place] # (Auto) 0.7 (0.1-1.2) X10*3/uL Eos # (Auto) 0.1 (0.0-0.4) X10*3/uL Baso # (Auto) 0.0 (0.0-0.2) X10*3/uL Abs Immat Gran (auto) 0.06 H (0.00-0.03) X10*3/uL Absolute Neuts (auto) 5.3 (2.0-8.3) x10*3/uL Absolute Nucleated RBC 0.000 (0.0-0.012) X10*3/uL Nucleated RBC % (auto) 0.0 (0.0-0.2) /100WBC PT (11.2-13.5) SEC INR (0.9-1.1) VBG pH 7.54 H (7.32-7.43) VBG pCO2 27 mmHg VBG pO2 78 mmHg VBG HCO3 23 (22-26) mmol/L VBG Base Excess 2.1 mmol/L Sodium (135-145) mmol/L Potassium (3.3-5.1) mmol/L Chloride (96-108) mmol/L Carbon Dioxide (22-29) mmol/L Anion Gap (12-20) BUN (9-16) mg/dL Creatinine (0.5-1.4) mg/dL Estim Creat Clear Calc Estimated GFR Random Glucose (60-115) mg/dL Lactic Acid (0.5-2.0) mmol/L Calcium (8.4-10.2) mg/dL Total Bilirubin (0.0-1.0) mg/dL AST (5-31) U/L ALT (0-31) U/L Alkaline Phosphatase (39-117) U/L Troponin I High Sens 87.2 H* (<3.5-17.0) ng/L Total Protein (6.5-8.0) g/dL Albumin (3.5-5.0) g/dL Beta HCG, Quant mIU/mL Independent Interpretation I performed an independent interpretation of an: CT Scan Radiology Impression Discussion of test interpretation with radiology: I have reviewed the radiologist's reading. Chronic Conditions Patient?s care impacted by: Diabetes ESRD Critical Care Time Critical Care Time Critical Care Time: Yes Total Critical Care Time: 40 Attestation: Time is exclusive of separately billable procedures. Time includes: direct patient care, patient reassessment, coordination of patient care, interpretation of data (laboratory data, pulse oximetry, arterial blood gases and chest xrays), review of patient's medical records, medical consultation and documentation of patient care. Procedures excluded from critical care time: central intravenous line placement and electrocardiography. Discharge Plan Discharge Clinical Impression: Abscess, Sepsis Patient Disposition: Admitted As Inpatient Print Language: Andorran
[2025-02-10 16:01] LABS: Troponin-I High Sensitivity 87.2 ng/L (<3.5-17.0)
--- OUTSIDE RECORDS SUMMARY | 2025-02-10 16:35 | XMS_ITS | Encounter Summary ---
Author Organization [employer] Address [address] [facility] 7t [place] [address] Care Team Providers Care Yoga Teacher Name Role Phone Genevieve Gtz MD [facility] [address] [place] [address] Paola Thurston, RN 505 [place] [address] documented as of this encounter Goals Goal [...] documented as of this encounter Care Teams Yoga Teacher Relationship Specialty Start Date End Date Genevieve Gtz MD [address] [place] [phone] PCP - General Internal Medicine 10/12/22 documented as of this encounter
--- OUTSIDE RECORDS SUMMARY | 2025-02-10 16:35 | XMS_ITS | Encounter Summary ---
Author Organization [employer] Address [address] [facility] 7t [place] [address] Care Team Providers Care Combine Operator Name Role Phone Genevieve Gtz MD Primary Care Pro vider Reason for Visit * Reason Onset Date Comments Hospital Follow-up 03/04/2024 Encounter Details Date Type Department Care Team ([facility] Contact Info) Description 03/04/2024 Telephone [facility] MEDICINE [address] [place], [place] [phone] Genevieve Gtz MD 230 [place] [address] Hospital Follow-up Social History Tobacco Use Types [...] from pt requesting a HDF appt. Hospital: [facility] Date of admission: 02/21/2024 Discharge date: 02/01/2025 Diagnosed: Oxygen , Infection Dialysis tube *Send message to [place] Clinical Care Coordinators documented in this encounter Plan of Treatment Upcoming Encounters Date Type Department Care Team ([facility] st Contact Info) Description 02/11/2025 2:45 PM EST Clinical Support [facility] MED & PEDS [address] [place] [address] Paola Thurston RN 505 [place] [address] documented as of this encounter Goals Goal [...] documented as of this encounter Care Teams Combine Operator Relationship Specialty Start Date End Date Genevieve Gtz MD [address] [place] [address] PCP - General Internal Medicine 10/12/22 documented as of this encounter
--- OUTSIDE RECORDS SUMMARY | 2025-02-10 16:35 | XMS_ITS | Encounter Summary ---
Author Organization [employer] Address [address] [place] [address] 7t [place] [address] Care Team Providers Care Dietitian Helper Name Role Phone Genevieve Gtz MD Primary Care Pro vider Reason for Visit * Reason Onset Date Comments Med Refill 11/27/2022 Encounter Details Date Type Department Care Team ([facility] st Contact Info) Description 11/27/2022 Telephone [facility] MEDICINE 230 [place], [place] [phone] Genevieve Gtz MD 230 [place], [place] [phone] Med Refill Social History Tobacco Use Types [...] to [facility]/pharmacy #[id number] - [place] - [address] Cool documented in this encounter Plan of Treatment Upcoming Encounters Date Type Department Care Team (Late st Contact Info) Description 02/11/2025 2:45 PM EST Clinical Support [facility] MED & PEDS [address] [place] [address] Paola Thurston, RN [address] [place] [address] documented as of this encounter Visit Diagnoses Not on filedocumented in this encounter Additional Health Concerns Assessment Noted Time PHQ-9 Depression Total Score: 0 10/13/19 2:37 PM EDT documented as of this encounter Care Teams Dietitian Helper Relationship Specialty Start Date End Date Genevieve Gtz MD [address] [place] [phone] PCP - General Internal Medicine 10/12/22 documented as of this encounter
--- OUTSIDE RECORDS SUMMARY | 2025-02-10 16:35 | XMS_ITS | Encounter Summary ---
Author Organization [employer] Address [address] [facility] 7t [place] [address] Care Team Providers Care Molasses Preparer Name Role Phone Genevieve Gtz MD Primary Care Pro vider Reason for Visit * Reason Onset Date Comments Med Refill 12/04/2024 Encounter Details Date Type Department Care Team ([facility] Contact Info) Description 12/04/2024 Telephone [facility] MEDICINE [address] [place] [address] Genevieve Gtz MD 230 [place], [place] [phone] Med Refill Social History Tobacco Use Types [...] release tablet To be sent to: - [facility]/pharmacy #[id number] documented in this encounter Plan of Treatment Upcoming Encounters Date Type Department Care Team (Late st Contact Info) Description 02/11/2025 2:45 PM EST Clinical Support [facility] MED & PEDS [address] [place] [address] Paola Thurston RN 505 [place] [address] documented as of this encounter Goals Goal [...] documented as of this encounter Care Teams Molasses Preparer Relationship Specialty Start Date End Date Genevieve Gtz MD [address] [place] [address] PCP - General Internal Medicine 10/12/22 documented as of this encounter
--- OUTSIDE RECORDS SUMMARY | 2025-02-10 16:35 | XMS_ITS | Encounter Summary ---
Author Organization [employer] Address [address] [facility] 7t [place] [address] Care Team Providers Care Terminologist Name Role Phone Genevieve Gtz MD Primary Care Pro vider Reason for Visit * Reason Onset Date Comments Med Refill 06/20/2024 Encounter Details Date Type Department Care Team ([facility] Contact Info) Description 06/20/2024 Telephone [facility] MEDICINE 230 [place] [address] Genevieve Gtz MD 230 [place], [place] [phone] Med Refill Social History Tobacco Use Types [...] immediate release tablet To be sent to: [facility]/pharmacy #[id number] [place] [address] documented in this encounter Plan of Treatment Upcoming Encounters Date Type Department Care Team (Late st Contact Info) Description 02/11/2025 2:45 PM EST Clinical Support [facility] MED & PEDS [address] [place] [address] Paola Thurston RN [address] [place] [address] documented as of this encounter Goals Goal [...] documented as of this encounter Care Teams Terminologist Relationship Specialty Start Date End Date Genevieve Gtz MD [address] [place] [address] PCP - General Internal Medicine 10/12/22 documented as of this encounter
--- OUTSIDE RECORDS SUMMARY | 2025-02-10 16:35 | XMS_ITS | Encounter Summary ---
Author Organization [employer] Address [address] [facility] 7t [place] [address] Care Team Providers Care Systems Navigator Name Role Phone Genevieve Gtz MD Primary Care Pro vider Reason for Visit * Reason Comments Med Change Request Encounter Details Date Type Department Care Team ([facility] st Contact Info) Description 03/15/2023 Refill [facility] MED & PEDS [address] [place], [place] [phone] Genevieve Gtz MD [address] [place], [place] [phone] Benign essential hypertension Social History Tobacco Use [...] Upcoming Encounters Date Type Department Care Team ([facility] st Contact Info) Description 02/11/2025 2:45 PM EST Clinical Support [facility] MED & PEDS [address] [place] [address] Paola Thurston, RN [address] [place] [address] documented as of this encounter Visit Diagnoses Diagnosis Benign essential hypertension Essential hypertension, benign documented in this encounter Additional Health Concerns Assessment Noted Time PHQ-9 Depression Total Score: 0 10/13/19 2:37 PM EDT documented as of this encounter Care Teams Systems Navigator Relationship Specialty Start Date End Date Genevieve Gtz MD [address] [place] [address] PCP - General Internal Medicine 10/12/22 documented as of this encounter
--- OUTSIDE RECORDS SUMMARY | 2025-02-10 16:35 | XMS_ITS | Encounter Summary ---
Author Organization [employer] [facility] Address [address] [place] [address] 7t [place] [address] Care Team Providers Care Complaint Clerk Name Role Phone Carolina Hsu Primary Care Provider Gneevieve Wilson MD Primary Care Pro vider Encounter Details Date Type Department Care Team (Late Contact Info) Description 09/11/2022 Abstract [facility] MEDICINE [address] [place], [place] [phone] Carolina Hsu FNP Social History Tobacco Use [...] Description 02/11/2025 2:45 PM EST Clinical Support [facility] MED & PEDS [address] [place] [address] Paola Thurston RN [address] [place] [address] documented as of this encounter Visit Diagnoses Not on filedocumented in this encounter Care Teams Complaint Clerk Relationship Specialty Start Date End Date Carolina Hsu FNP PCP - General Family Medicine 01/16/22 10/11/22 Genevieve Gtz MD [address] [place] [address] PCP - General Internal Medicine 10/12/22 documented as of this encounter
--- OUTSIDE RECORDS SUMMARY | 2025-02-10 16:35 | XMS_ITS | Encounter Summary ---
Author Organization [employer] Address [address] [facility] 7t [place] [address] Care Team Providers Care Muck Farmer Name Role Phone Genevieve Gtz MD Primary Care Pro vider Reason for Visit * Reason Onset Date Comments Med Refill 02/04/2025 Encounter Details Date Type Department Care Team ([facility] Contact Info) Description 02/04/2025 Telephone [facility] MEDICINE [address] [place] [address] Genevieve Gtz MD [address] [place], [place] [phone] Med Refill Social History Tobacco Use Types [...] To be sent to: [facility]/pharmacy #[id number] [place], [place] - [address] [place] [address] Pt does not want to call every two weeks when she used to get 84 tablets a month. documented in this encounter Plan of Treatment Upcoming Encounters Date Type Department Care Team ([facility] st Contact Info) Description 02/11/2025 2:45 PM EST Clinical Support [facility] MED & PEDS 505 [place] [address] Paola Thurston RN 505 [place] [address] documented as of this encounter Goals Goal [...] documented as of this encounter Care Teams Muck Farmer Relationship Specialty Start Date End Date Genevieve Gtz MD [address] [place] [address] PCP - General Internal Medicine 10/12/22 documented as of this encounter
--- OUTSIDE RECORDS SUMMARY | 2025-02-10 16:35 | XMS_ITS | Encounter Summary ---
Author Organization [employer] Address 75 [facility] 7t [place] [address] Care Team Providers Care Counter Clerk [employer] Equipment Parts Name Role Phone Genevieve Gtz MD Primary Care Pro vider Encounter Details Date Type Department Care Team (Late st Contact Info) Description 02/04/2025 Orders Only [facility] MEDICINE 230 [place], [place] [phone] Genevieve Gtz MD 230 [place], [place] [phone] Social History Tobacco Use Types Packs/Day Years [...] Upcoming Encounters Date Type Department Care Team ([facility] st Contact Info) Description 02/11/2025 2:45 PM EST Clinical Support [facility] MED & PEDS 505 [place] [address] Paola Thurston RN 505 [place] [address] documented as of this encounter Goals Goal [...] documented as of this encounter Care Teams Counter Clerk [employer] Relationship Specialty Start Date End Date Genevieve Gtz MD [address] [place] [id number] PCP - General Internal Medicine 10/12/22 documented as of this encounter
--- OUTSIDE RECORDS SUMMARY | 2025-02-10 16:35 | XMS_ITS | Encounter Summary ---
Author Organization [employer] [facility] Address [address] [place] [address] 7t [place] [address] Care Team Providers Care Production Truck Driver Name Role Phone Carolina Hsu Primary Care Provider Genevieve Wilson MD Primary Care Pro vider Encounter Details Date Type Department Care Team (Late Contact Info) Description 09/11/2022 Abstract [facility] MEDICINE 230 [place], [place] [phone] Carloina Hsu FNP Social History Tobacco Use Types [...] Description 02/11/2025 2:45 PM EST Clinical Support [facility] CH[facility] MED & PEDS 505 [place] [address] Paola Thurston RN 505 [place] [address] documented as of this encounter Visit Diagnoses Not on filedocumented in this encounter Care Teams Production Truck Driver Relationship Specialty Start Date End Date Carolina Hsu FNP PCP - General Family Medicine 01/16/22 10/11/22 Genevieve Gtz MD 230 [place] [address] PCP - General Internal Medicine 10/12/22 documented as of this encounter
--- OUTSIDE RECORDS SUMMARY | 2025-02-10 16:35 | XMS_ITS | Encounter Summary ---
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 documented in this encounter Plan of Treatment Upcoming Encounters Date Type Department Care Team ([facility] st Contact Info) Description 02/11/2025 2:45 PM EST Clinical Support [facility] MED & PEDS 505 [place] [address] Paola Thurston, KIRIT 505 [place] [address] documented as of this encounter Goals Goal [...] documented as of this encounter Care Teams Pit Shoveler Relationship Specialty Start Date End Date Genevieve Gtz MD [address] [place] [phone] PCP - General Internal Medicine 10/12/22 documented as of this encounter
--- OUTSIDE RECORDS SUMMARY | 2025-02-10 16:35 | XMS_ITS | Encounter Summary ---
Author Organization [employer] Address 75 [facility] 7t [place] [address] Care Team Providers Care Senior Account Director Name Role Phone Genevieve Gtz MD Primary Care Pro vider Encounter Details Date Type Department Care Team ([facility] st Contact Info) Description 02/05/2025 Telephone [facility] MED & PEDS 505 [place], [place] [phone] Paola Thurston, RN 505 [place] [address] Social History Tobacco Use Types Packs/Day Years [...] t he electric, gas, oil or water [employer] threatened to shut off services in your [...] Description 02/11/2025 2:45 PM EST Clinical Support [facility] CHC MED & PEDS 505 [place] [address] Paola Thurston RN 505 [place] [address] documented as of this encounter Goals Goal [...] as of this encounter Care Teams Senior Account Director Relationship Specialty Start Date End Date Genevieve Gtz MD [address] [place] [phone] PCP - General Internal Medicine 10/12/22 documented as of this encounter
--- OUTSIDE RECORDS SUMMARY | 2025-02-10 16:35 | XMS_ITS | Encounter Summary ---
Author Organization [employer] Address 75 [facility] 7t [place] [address] Care Team Providers Care Time Broker Name Role Phone Genevieve Gtz MD Primary Care Pro vider Reason for Visit * Reason Onset Date Comments Med Refill 02/04/2025 Encounter Details Date Type Department Care Team ([facility] Contact Info) Description 02/04/2025 Telephone [facility] MED [facility] PEDS 505 [place] [address] Paola Thurston RN 505 [place] [address] Med Refill Social History Tobacco Use Types [...] * Telephone Encounter - Giuseppe Cadena - 02/09/2025 10:06 AM EST Tc from pt requesting status on medication. Ground Host/Hostess advised that she received the Oxycontin Er 10Mg qty 20 and Oxycodone Hcl (Ir) 10 Mg qty 24 on 02/01/25, so she is not due yet. Pt stated if she wouldnot be calling if that was the case. Contact pt at [phone] * Telephone Encounter - Paola Thurston RN - 02/04/2025 9:37 AM EST Pt requesting refill of Oxycodone 10mg. Last refill from an outside provider Oxycontin Er 10Mg qty 20 and Oxycodone Hcl (Ir) 10 Mg qty 24 on 02/01/25, notes in pt's chart. documented in this encounter Plan of Treatment Upcoming Encounters Date Type Department Care Team ([facility] st Contact Info) Description 02/11/2025 2:45 PM EST Clinical Support [facility] MED & PEDS 505 [facility] [place] [address] Paola Thurston RN 505 [facility] [place] [address] documented as of this encounter Goals Goal [...] documented as of this encounter Care Teams Time Broker Relationship Specialty Start Date End Date Genevieve Gtz MD [address] [place] [phone] PCP - General Internal Medicine 10/12/22 documented as of this encounter
--- OUTSIDE RECORDS SUMMARY | 2025-02-10 16:35 | XMS_ITS | Encounter Summary ---
Author Organization [employer] Address 75 [facility] 7t [place] [address] Care Team Providers Care Lockstitch Shoulder Joiner Name Role Phone Genevieve Gtz MD Primary Care Pro vider Reason for Visit * Reason Onset Date Comments Med Refill 06/21/2023 Encounter Details Date Type Department Care Team ([facility] Contact Info) Description 06/21/2023 Telephone [facility] MEDICINE 230 [place], [place] [phone] Genevieve Gtz MD 230 [place], [place] [phone] Med Refill Social History Tobacco Use Types [...] To be sent to: [facility]/pharmacy #[id number] [place], [place] - [address] [place] [address] documented in this encounter Plan of Treatment Upcoming Encounters Date Type Department Care Team (Late st Contact Info) Description 02/11/2025 2:45 PM EST Clinical Support [facility] CHC MED & PEDS 505 [place] [address] Paola Thurston, KIRIT 505 [place] [address] documented as of this encounter Goals Goal [...] documented as of this encounter Care Teams Lockstitch Shoulder Joiner Relationship Specialty Start Date End Date Genevieve Gtz MD [address] [place] [id number] PCP - General Internal Medicine 10/12/22 documented as of this encounter
--- OUTSIDE RECORDS SUMMARY | 2025-02-10 16:35 | XMS_ITS | Encounter Summary ---
Author Organization [employer] [facility] Address [address] [place] [address] 7t [place] [address] Care Team Providers Care Dust Collector Attendant Name Role Phone Carolina Hsu Primary Care Provider Genevieve Wilson MD Primary Care Pro vider Encounter Details Date Type Department Care Team (Late Contact Info) Description 09/11/[address] [facility] MEDICINE 230 [place], [place] [phone] Carolina Hsu FNP Social History Tobacco Use [...] Description 02/11/2025 2:45 PM EST Clinical Support [facility] CHC MED & PEDS 505 [place] [address] Paola Thurston RN 505 [place] [address] documented as of this encounter Visit Diagnoses Not on filedocumented in this encounter Care Teams Dust Collector Attendant Relationship Specialty Start Date End Date Carolina Hsu FNP PCP - General Family Medicine 01/16/22 10/11/22 Genevieve Gtz MD 230 [place] [address] PCP - General Internal Medicine 10/12/22 documented as of this encounter
--- OUTSIDE RECORDS SUMMARY | 2025-02-10 16:35 | XMS_ITS | Encounter Summary ---
Author Organization [employer] Address 75 [facility] 7t [place] [address] Care Team Providers Care Disability Benefits Specialist Name Role Phone Carolina Hsu VP OF DIGITAL MARKETING Primary Care Provider Genevieve Wilson MD Primary Care Pro vider Reason for Visit * Reason Onset Date Comments Appointment Request 03/30/2022 Encounter Details Date Type Department Care Team ([facility] st Contact Info) Description 03/30/2022 Telephone [facility] MEDICINE [address] [place] [address] [phone] Carolina Hsu FNP Appointment Request Social History [...] EST TC to pt, NCNS for todays INVENTORY MANAGER Renewal appt. Pt stated she is currently admitted to [facility], she statedshe has fluid in her lungs and she's a mess. Wished patient well and told her I would forward this information to her PCP. Requested she call back to reschedule INVENTORY MANAGER appt when she's feeling better. * Telephone Encounter - Stephen Davison - 03/30/2022 10:41 AM EST documented in this encounter Plan of Treatment Upcoming Encounters Date Type Department Care Team (Late st Contact Info) Description 02/11/2025 2:45 PM EST Clinical Support [facility] MED & PEDS 505 [place] [address] Paola Thurston, RN 505 [place] [address] documented as of this encounter Visit Diagnoses Not on filedocumented in this encounter Care Teams Disability Benefits Specialist Relationship Specialty Start Date End Date Carolina Hsu FNP PCP - General Family Medicine 01/16/22 10/11/22 Genevieve Gtz MD [address] [place] [phone] PCP - General Internal Medicine 10/12/22 documented as of this encounter
--- OUTSIDE RECORDS SUMMARY | 2025-02-10 16:35 | XMS_ITS | Encounter Summary ---
Author Organization [employer] Address 75 [facility] 7t [place] [address] Care Team Providers Care Investment Strategist Name Role Phone Genevieve Gtz MD Primary Care Pro vider Reason for Visit * Reason Onset Date Comments Med Refill 02/04/2025 Encounter Details Date Type Department Care Team ([facility] Contact Info) Description 02/04/2025 Telephone [facility] MEDICINE 230 [place] [address] Genevieve Gtz MD 230 [place], [place] [phone] Med Refill Social History Tobacco Use Types [...] release tablet To be sent to: - [facility]/pharmacy #[id number] documented in this encounter Plan of Treatment Upcoming Encounters Date Type Department Care Team ([facility] st Contact Info) Description 02/11/2025 2:45 PM EST Clinical Support [facility] CH[facility] MED & PEDS 505 [place] [address] Paola Thurston RN 505 [place] [address] documented as of this encounter Goals Goal [...] as of this encounter Care Teams Investment Strategist Relationship Specialty Start Date End Date Genevieve Gtz MD [address] [place] [address] PCP - General Internal Medicine 10/12/22 documented as of this encounter
--- OUTSIDE RECORDS SUMMARY | 2025-02-10 16:35 | XMS_ITS | Encounter Summary ---
Author Organization [employer] Address 75 [facility] 7t [place] [address] Care Team Providers Care Blockers Skiver Name Role Phone Genevieve Gtz MD Primary Care Pro vider Reason for Visit * Reason Onset Date Comments Med Refill 01/08/2023 Encounter Details Date Type Department Care Team ([facility] Contact Info) Description 01/08/2023 Telephone [facility] MEDICINE 230 [place], [place] [phone] Genevieve Gtz MD 230 [place], [place] [phone] Med Refill Social History Tobacco Use Types [...] [facility] MED [facility]ED[facility] 505 [place] [address] Paola Thurston, KIRIT 505 [place] [address] documented as of this encounter Visit Diagnoses Not on filedocumented in this encounter Additional Health Concerns Assessment Noted Time PHQ-9 Depression Total Score: 0 10/13/19 2:37 PM EDT documented as of this encounter Care Teams Blockers Skiver Relationship Specialty Start Date End Date Genevieve Gtz MD [address] [place] [phone] PCP - General Internal Medicine 10/12/22 documented as of this encounter
--- OUTSIDE RECORDS SUMMARY | 2025-02-10 16:35 | XMS_ITS | Encounter Summary ---
Author Organization [employer] Address 75 [facility] 7t [place] [address] Care Team Providers Care Boat Loader Helper Name Role Phone Genevieve Gtz MD Primary Care Pro vider Encounter Details Date Type Department Care Team (Late st Contact Info) Description 01/21/2024 Telephone [facility] MEDICINE 230 [place], [place] [phone] Genevieve Gtz MD 230 [place], [place] [phone] Social History Tobacco Use Types Packs/Day Years [...] Oxycodone 5mg , pt requests a callback [phone] documented in this encounter Plan of Treatment Upcoming Encounters Date Type Department Care Team (Late st Contact Info) Description 02/11/2025 2:45 PM EST Clinical Support [facility] MED & PEDS 505 [place] [address] Paola Thurston, KIRIT 505 [place] [address] documented as of this encounter Goals Goal [...] as of this encounter Care Teams Boat Loader Helper Relationship Specialty Start Date End Date Genevieve Gtz MD [address] [place] [address] PCP - General Internal Medicine 10/12/22 documented as of this encounter
--- OUTSIDE RECORDS SUMMARY | 2025-02-10 16:36 | XMS_ITS | Encounter Summary ---
Author Organization [employer] Address 75 [facility] 7t [place] [address] Care Team Providers Care Finished Goods Stock Clerk Name Role Phone Genevieve Gtz MD Primary Care Pro vider Reason for Visit * Reason Onset Date Comments Med Refill 12/15/2024 Encounter Details Date Type Department [facility] Description 12/15/2024 Telephone [facility] MEDICINE 230 [place] [address] Genevieve Gtz MD 230 [place], [place] [phone] Med Refill Social History Tobacco Use Types [...] be sent to: [facility]/pharmacy #[address] [place] [address] documented in this encounter Plan of Treatment Upcoming Encounters Date Type Department Care Team (Late st Contact Info) Description 02/11/2025 2:45 PM EST Clinical Support [facility] MED & PEDS 505 [place] [address] Paola Thurston, KIRIT 505 [place] [address] documented as of this encounter Goals Goal [...] documented as of this encounter Care Teams Finished Goods Stock Clerk Relationship Specialty Start Date End Date Genevieve Gtz MD [address] [place] [address] PCP - General Internal Medicine 10/12/22 documented as of this encounter
--- OUTSIDE RECORDS SUMMARY | 2025-02-10 16:36 | XMS_ITS | Encounter Summary ---
Author Organization [employer] Address [address] [facility] 7t [place] [address] Care Team Providers Care Commercial Loan Analyst Name Role Phone Genevieve Gtz MD Primary Care Pro vider Encounter Details Date Type Department Care Team ([facility] st Contact Info) Description 02/07/2025 Orders Only GENERIC EXTERNAL DATA DEPARTMENT Provider, [...] Description 02/11/2025 2:45 PM EST Clinical Support [facility] [address] [place] [address] Paola Thurston RN [address] [place] [address] Pending Results Name Type Priority Associated Diagnoses Date /Time CBC auto differential Lab Routine 10:48 PM EST documented as of this encounter Goals Goal Patient Goal Type Associated Problems Recent Progress Patient-Stated? Author Blood Pressure < 140/90 Blood Pressure 129/75(2024 9:08 AM EST) No Jaime Chilel Hemoglobin A1c < 8 Result Component 5.7( 9:45 AM EST) No Jaime Chilel documented as of this encounter Procedures Procedure Name Priority Date/Time Associated Diagnosis Comments XR CHEST 1 VIEW Routine 02/07/2025 10:58 PM EST VENOUS BLOOD GAS Routine 02/07/2025 10:5 5 PM EST COMPLETE BLOOD COUNT MAN DIF Routine 02/07/2025 10:48 PM EST SARS COV2/INFLUENZA A/B AND RSV RNA QL NAAT Routine 02/07/2025 10:48 PM EST BETA-HYDROXYBUTYRATE Routine 02/07/2025 10:48 PM EST CBC WITH AUTO DIFFERENTIAL Routine 02/07/2025 10:48 PM EST HCG, TOTAL, QN Routine 02/07/2025 10:48 PM EST PHOSPHATE ( PHOSPHORUS) Routine 02/07/2025 10:48 PM EST MAGNESIUM Routine 02/07/2025 10:48 PM EST CALCIUM Routine 02/07/2025 10:48 PM EST HEPATIC FUNCTION PANEL Routine 02/07/2025 10:48 PM EST BASIC METABOLIC PANEL Routine 02/07/2025 10:48 PM EST GLUCOSE, WHOLE BLOOD Routine 02/07/2025 9:50 PM EST documented in this encounter Results * XR Chest 1 View (02/07/2025 10:58 PM EST) Anatomical Region Laterality Modality Chest Radiographic Vandana ging 02/07/2025 10:5 8 PM EST Narrative 02/07/2025 10:59 PM EST [place] [address] XRay Report Signed Patient: Shereen Taylor MR#: [id number] : 1990 Acct:[id number] Age/Sex: 34 / F ADM Date: 02/07/25 Loc: .ED Attending Dr: Ordering Physician: Sylvia Saxena MD Date of Service: 02/07/25 Procedure(s): XR chest 1V Accession Number(s): [id number] cc: Sylvia Saxena MD; Genevieve Gtz MD Reason for Exam: cp CLINICAL HISTORY: cp 1 view chest x-ray Comparison: CR - XR CHEST 1V - 01/26/25 02:38 EST Findings: The lungs are clear. Cardiomegaly. Right internal jugular approach central venous catheter with tip projected over the right atrium. No acute fracture. IMPRESSION: 1. Cardiomegaly. 2. Right internal jugular approach central venous catheter with tip projected over the right atrium. 3. No acute cardiopulmonary findings. This document has been electronically signed by: Evan Peterson MD on 02/07/2025 22:58:20 Dictated By: Evan Peterson MD Signed By: <Electronically signed by Evan Peterson MD in OV> 02/07/252258 DD/ 57 TD/TT: 02/07/252257 Blast Furnace Checker: Procedure Note Morenootelsieter, Image - 02/07/2025 [place] [address] XRay Report Signed Patient: Danna Taylor#: [id number] : 1990Acct:[id number] Age/Sex: 34 / FADM Date: 02/07/25 Loc: HO.ED Attending Dr: Ordering Physician: Sylvia Saxena MD Date of Service: 02/07/25 Procedure(s): XR chest 1V Accession Number(s): [id number] cc: Sylvia Saxena MD; Genevieve Gtz MD Reason for Exam: cp CLINICAL HISTORY: cp 1 view chest x-ray Comparison: CR - XR CHEST 1V - 01/26/25 02:38 EST Findings: The lungs are clear. Cardiomegaly. Right internal jugular approach central venous catheter with tip projected over the right atrium. No acute fracture. IMPRESSION: 1. Cardiomegaly. 2. Right internal jugular approach central venous catheter with tip projected over the right atrium. 3. No acute cardiopulmonary findings. This document has been electronically signed by: Evan Peterson MD on 02/07/2025 22:58:20 Dictated By: Evan Peterson MD Signed By: <Electronically signed by Evan Peterson MD in OV> 02/07/252258 DD/ 57 TD/TT: 02/07/252257 Blast Furnace Checker: [facility] External Provider IMG XR PROCEDURES Edited Result - Final * VENOUS BLOOD GAS (02/07/2025 10:55 PM EST) VBG pH 7.37 7.32 - 7.43 [facility] Comment:METER #: [id number] additional_comment: Cb hoferrinc 2247 VBG PCO2 37 mmHg [facility] Comment:METER #: [id number] additional_comment: Cb herbertferrinc 2248 VBG PO2 78 mmHg [facility] Comment:METER #: [id number] additional_comment: Cb herbertferrinc 2248 VBG Base Excess -2.7 mmol/L [facility] Comment:METER #: [id number] additional_comment: Cb hoferrinc 2248 VBG HCO3 22 22 - 26 mmol/L [facility] Comment:METER #: [id number] additional_comment: Cb herbertferrinc 2248 O2 Sat, Uday 93.0 % [facility] Comment:METER #: [id number] additional_comment: Cb herbertferrinc 2248 02/07/2025 10:5 5 PM EST 02/07/2025 10:59 PM EST us Generic External Data Provider LAB BLOOD ORDERAB LES Final Result [facility] [address] [place] [address] [phone] * SARS-CoV-2 RNA, Influenza A/B, and RSV RNA, Ql NAAT (02/07/2025 10:48 PM EST) Influenza A PCR NEGATIVE Negative [facility] Influenza B PCR NEGATIVE Negative [facility] Resp Syncy Virus RNA Qual PCR NEGATIVE Negative [facility] SARS COV2 PCR NEGATIVE Negative [facility] Comment:All test results mus [...] use by authorized laboratories.Testing performed on the [employer] GeneXpert utilizingreal-time RT-PCR.All SARS CoV2 and positive influenza A/B results arereported to [facility]. 02/07/2025 10:4 8 PM EST 02/07/2025 10:52 PM EST Generic External Data Provider LAB MICROBIOLOGY - GENERAL ORDERABLES Final Result Performing Organization Address [facility] de Phone Number [facility] [address] [place] [address] [phone] * hCG, Total, Quantitative (02/07/2025 10:48 PM EST) HCG Quantitative <2 mIU/mL [facility] Comment:Weeks post LMP Appro ximate hCG(Last Menstrual Period) Range (mIU/ml)3 - 4 weeks 9 - 1304 - 5 weeks 75 - 2,6005 - 6 weeks 850 - 20,8006 - 7 weeks 4000 - 100,2007 - 12 weeks 11,500 - 289,87135 - 16 weeks 18,300 - 137,69491 - 29 weeks (2nd trimester) 1,400 - 53,14090 - 41 weeks (3rd trimester) 940 - 60,000The Corona B- hCG assay is used for the early detection ofpregnancy; it cannot be used to diagnose any conditionunrelated to . If a B-hCG level is not supportedby the clinical evidence, results should be confirmed by analternative method (qualitative urine hCG, for example). 02/07/2025 10:4 8 PM EST 02/07/2025 10:52 PM EST Generic External Data Provider LAB BLOOD ORDERAB LES Final Result Performing Organization Address [facility] Co de Phone Number [facility] [address] [place] [address] [phone] * (ABNORMAL) Hepatic Function Panel (02/07/2025 10:48 PM EST) Bilirubin, Total 0.6 0.0 - 1.0 mg/dL [facility] Bilirubin, Direct 0.3 0.0 - 0.5 mg/dL [facility] Aspartate Amino Transferase 29 5 - 31 U/L [facility] Alanine Aminotransferase 34(H) 0 - 31 U/L [facility] Total Protein 6.5 6.5 - 8.0 g/dL [facility] Albumin Level 3.5 3.5 - 5.0 g/dL [facility] Alkaline Phosphatase 210(H) 39 - 117 U/L [facility] 02/07/2025 10:4 8 PM EST 02/07/2025 10:52 PM EST us Generic External Data Provider LAB BLOOD ORDERAB LES Final Result [facility] [address] [place] [phone] * (ABNORMAL) Basic Metabolic Panel (02/07/2025 10:48 PM EST) Sodium 133(L) 135 - 145 mmol/L [facility] Potassium 5.7(H) 3.3 - 5.1 mmol/L [facility] Chloride 98 96 - 108 mmol/L [facility] Carbon Dioxide 20(L) 22 - 29 mmol/L [facility] Anion Gap 21(H) 12 - 20 [facility] Urea Nitrogen (BUN) 105(H) 9 - 16 mg/dL [facility] Creatinine, Serum 8.68(HH) 0.5 - 1.4 mg/dL [facility] Comment:Critical value for t est(s): CREA2 Results called to rhett back by: MATONPerson calling: ALKASAB Date:02/07/25Time:22:21 Creatinine Clr Calc Pharmacy 10.4 [facility] Comment:eGFR (calculated fro m the MDRD study equation) and eCrCl(calculated from the Cockcroft-Gault equation) are based ondifferent parameters and may not yield comparable results.If eCrCl result is absurd, please check patient'sheight/weight. Estimated Glomerular Filt Rate 5 [facility] Comment:Chronic Kidney Disea se: Estimated GFR < 60 mL/min/1.44v1Mtbpdr Kidney Disease: Estimated GFR < 15 mL/min/1.73m2 Glucose 495(HH) 60 - 115 mg/dL [facility] Comment:Critical value for t est(s):GLUR Results called to and readback by: BRUNO Person calling: CARLOS AEUGENIE Date: 02/07/25Time:22:21 Calcium 7.6(L) 8.4 - 10.2 mg/dL [facility] 02/07/2025 10:4 8 PM EST 02/07/2025 10:52 PM EST us Generic External Data Provider LAB BLOOD ORDERAB LES Final Result [facility] [address] [place] [address] [phone] * (ABNORMAL) Complete Blood Count Manual Diff (02/07/2025 10:48 PM EST) White Blood Count 11.5(H) 4.8 - 10.8 X10*3/uL [facility] Red Blood Count 2.67(L) 4.20 - 5.50 X10*6/uL [facility] Hemoglobin 8.2(L) 12.0 - 16.0 g/dl [facility] Hematocrit 24.3(L) 37.0 - 47.0 % [facility] Mean Corpuscular Volume 91.0 80.0 - 98.0 fL [facility] Mean Corpuscular Hemoglobin 30.7 27.0 - 33.0 pg [facility] Mean Corpuscular HGB Conc 33.7 31.0 - 35.0 g/dl [facility] Red Cell Distribution Width 16.4(H) 11.0 - 16.0 % [facility] Platelet Count 125(L) 160 - 400 X10*3/uL [facility] Mean Platelet Volume 12.8(H) 9.4 - 12.3 fL [facility] NRBC Pct Auto 0.0 0.0 - 0.2 /100WBC [facility] NRBC Abs Auto 0.000 0.0 - 0.012 X10*3/uL [facility] Neutrophils % Manual 95(H) 45 - 73 % [facility] Band Neutrophils Percent 2(L) 3 - 5 % [facility] Lymphocytes Percent Manual 2(L) 20 - 40 % [facility] Monocytes Percent Manual 1(L) 2 - 11 % [facility] NEUTROPHILS ABSOLUTE MANUAL 11.2(H) 2.0 - 8.3 X10*3/uL [facility] LYMPHOCYTES ABSOLUTE MANUAL 0.2(L) 1.2 - 4.9 X10*3/uL [facility] MONOCYTES ABSOLUTE MANUAL 0.1 0.1 - 1.2 X10*3/uL [facility] Platelet Estimate SLIGHTLY DECREASED NORMAL [facility] Large Platelet [facility] Platelet Morphology Comment NORMAL [facility] RBC Morphology NOTED [facility] SPHEROCYTES 1+ (0-2) /OIF [facility] [place] Cells 1+ (0-2) /OIF [facility] Schistocytes 1+ (0-2) /F [facility] 02/07/2025 10:4 8 PM EST 02/07/2025 10:52 PM EST us Generic External Data Provider LAB BLOOD ORDERAB LES Final Result Performing Organization Address [facility]/ZIP Co de Phone Number [facility] [address] [place] [phone] * Beta-Hydroxybutyrate (02/07/2025 10:48 PM EST) Beta-Hydroxybut yrate 0.11 0.02 - 0.27 mmol/L [facility] 02/07/2025 10:4 8 PM EST 02/07/2025 10:52 PM EST us Generic External Data Provider LAB BLOOD ORDERAB LES Final Result Performing Organization Address City/[facility]/ZIP Co de Phone Number [facility] [address] [place] [phone] * (ABNORMAL) Magnesium (02/07/2025 10:48 PM EST) Magnesium 2.8(H) 1.6 - 2.6 mg/dL [facility] 02/07/2025 10:4 8 PM EST 02/07/2025 10:52 PM EST Generic External Data Provider LAB BLOOD ORDERAB LES Final Result Performing Organization Address [facility] Co de Phone Number [facility] [address] [place] [phone] * (ABNORMAL) Phosphate (As Phosphorus) (02/07/2025 10:48 PM EST) Phosphorus 7.5(H) 2.7 - 4.5 mg/dL [facility] 02/07/2025 10:4 8 PM EST 02/07/2025 10:52 PM EST Generic External Data Provider LAB BLOOD ORDERAB LES Final Result Performing Organization Address [facility] Co de Phone Number [facility] [address] [place] [phone] * (ABNORMAL) Calcium (02/07/2025 10:48 PM EST) Calcium 7.6(L) 8.4 - 10.2 mg/dL [facility] 02/07/2025 10:4 8 PM EST 02/07/2025 10:52 PM EST Generic External Data Provider LAB BLOOD ORDERAB LES Final Result Performing Organization Address [facility] Co de Phone Number [facility] [address] [place] [phone] * (ABNORMAL) Glucose, Whole Blood (02/07/2025 9:50 PM EST) Glucose, Whole Blood 439(HH) 60 - 115 mg/dL [facility] Comment:METER #: [id number] 02/07/2025 9:50 PM EST 02/07/2025 9:55 PM EST us Generic External Data Provider LAB BLOOD ORDERAB LES Final Result [facility] [address] [place] [phone] documented in this encounter Visit Diagnoses Not on filedocumented in this encounter Additional Health Concerns Assessment Noted Time PHQ-9 Depression Total Score: 0 10/23/19 24 2:23 PM EDT documented as of this encounter Care Teams Commercial Loan Analyst Relationship Specialty Start Date End Date Genevieve Gtz MD [address] [place] [address] PCP - General Internal Medicine 10/12/22 documented as of this encounter
--- OUTSIDE RECORDS SUMMARY | 2025-02-10 16:36 | XMS_ITS | Clinical Summary ---
Author Organization [address] [place] [address] Address [address] [place] [address] Phone Care Team Providers Care Measurement And Verification Engineer Name Role Phone Betty Nugent MD Primary Care Provider [phone] Surgical History Surgery Date Site/Laterality Comments SECTION [...] topic Insurance MEDICAID - [place] [facility] Member Subscriber Plan / Payer (Ef fective 2023-Present) Name:ROWAN MULTANI Relation to Subscriber:Self Name:Rowan Multani Payer ID:[id number] Group ID:[id number] Type:Not on file Address: [address] [place] [address] Care Teams Measurement And Verification Engineer Relationship Specialty Start Date End Date Betty Nugent MD [address] [place] [address] PCP - General Internal Medicine 01/10/18
--- OUTSIDE RECORDS SUMMARY | 2025-02-10 16:36 | XMS_ITS | Encounter Summary ---
Author Organization [facility] Prior to 12/28/2023 Address [address] [place] [address] Care Team Providers Care Lunch Counter Manager Name Role Phone Melvi, Pcp Primary Care Provider Chanda Thapa Primary Care Provider Mindy mercado Encounter Details Date Type Department Care Team Description 11/02/2017 Hospital Medical Records [address] [place] [address] aHyden Troncoso MD Social History Tobacco Use Types [...] on filedocumented in this encounter Care Teams Lunch Counter Manager Relationship Specialty Start Date End Date Melvi, Pcp PCP - General Internal Medicine 08/22/17 01/09/18 Chanda Nugent PCP - General Internal Medicine 01/10/18 documented as of this encounter
--- OUTSIDE RECORDS SUMMARY | 2025-02-10 16:36 | XMS_ITS | Encounter Summary ---
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 Author Blood Pressure < 140/90 Blood Pressure 129/75(2024 9:08 AM EST) No Jaime Chilel Hemoglobin A1c < 8 Result Component 5.7( 9:45 AM EST) No Jaime Chilel documented as of this encounter Visit Diagnoses Diagnosis Chronic ulcer of left foot due to diabetes mellitus (HCC)- Primary Diabetic ulcer of other part of foot associated with type 1 diabetes mellitus, with other ulcer severity, unspecified laterality (HCC) Chronic wound documented in this encounter Additional Health Concerns Assessment Noted Time PHQ-9 Depression Total Score: 0 10/23/19 24 2:23 PM EDT documented as of this encounter Care Teams Textile Designer Relationship Specialty Start Date End Date Genevieve Gtz MD [address] [place] [phone] PCP - General Internal Medicine 10/12/22 documented as of this encounter
--- OUTSIDE RECORDS SUMMARY | 2025-02-10 16:36 | XMS_ITS | Encounter Summary ---
Author Organization [employer] Address [address] [facility] 7t [place] [address] Care Team Providers Care Kiss Mixer Name Role Phone Genevieve Gtz MD Primary Care Pro vider Reason for Visit * Reason Onset Date Comments Med Refill 01/08/2025 Encounter Details Date Type Department Care Team ([facility] Contact Info) Description 01/08/2025 Telephone [facility] [address] [place] [address] Genevieve Gtz MD [address] [place], [place] [phone] Med Refill Social History Tobacco Use Types [...] immediate release tablet To be sent to: [facility]/pharmacy #[id number] [place] [address] documented in this encounter Plan of Treatment Upcoming Encounters Date Type Department Care Team (Late st Contact Info) Description 02/11/2025 2:45 PM EST Clinical Support [facility] [address] [place] [address] Paola Thurston, KIRIT [address] [place] [address] documented as of this encounter Goals Goal [...] documented as of this encounter Care Teams Kiss Mixer Relationship Specialty Start Date End Date Genevieve Gtz MD [address] [place] [phone] PCP - General Internal Medicine 10/12/22 documented as of this encounter
--- OUTSIDE RECORDS SUMMARY | 2025-02-10 16:36 | XMS_ITS | Encounter Summary ---
Author Organization [employer] Address [address] [facility] 7t [place] [address] Care Team Providers Care Testing Coordinator Name Role Phone Genevieve Gtz MD Primary Care Pro vider Reason for Visit * Reason Onset Date Comments FYI 08/08/2024 Encounter Details Date Type Department Care Team ([facility] Contact Info) Description 08/08/2024 Telephone [facility] [address] [place], [place] [phone] Genevieve Gtz MD [address] [place], [place] [phone] FYI Social History Tobacco Use Types Packs/Day [...] 11:13 AM EDT [facility] that [facility] [...] [facility] [address] [place] [address] Paola [place]ston, KIRIT [address] [place] [address] documented as of this encounter Goals Goal [...] documented as of this encounter Care Teams Testing Coordinator Relationship Specialty Start Date End Date Genevieve Gtz MD [address] [place] [phone] PCP - General Internal Medicine 10/12/22 documented as of this encounter
--- OUTSIDE RECORDS SUMMARY | 2025-02-10 16:36 | XMS_ITS | Encounter Summary ---
Author Organization [facility] Prior to 12/28/2023 Address [address] [place] [address] Care Team Providers Care Skein Yard Drier Name Role Phone Melvi, Pcp Primary Care Provider Chanda Thapa Primary Care Provider Mindy mercado Encounter Details Date Type Department Care Team Description 11/07/2017 Hospital Medical Records [address] [place] [address] Funmi Loza Social History Tobacco Use Types [...] on filedocumented in this encounter Care Teams Skein Yard Drier Relationship Specialty Start Date End Date Community, Pcp PCP - General Internal Medicine 08/22/17 01/09/18 Chanda Nugent PCP - General Internal Medicine 01/10/18 documented as of this encounter
--- OUTSIDE RECORDS SUMMARY | 2025-02-10 16:36 | XMS_ITS | Encounter Summary ---
Author Organization [facility] Prior to 12/28/2023 Address [address] [place] [address] Care Team Providers Care Earth Moving Technician Name Role Phone Chanda Nugent Primary Care Provider Mindy mercado Encounter Details Date Type Department Care Team Description 07/01/2018 [facility] [address] [facility] [address] [place] [address] Erna Nunez MD Social History [...] on filedocumented in this encounter Care Teams Earth Moving Technician Relationship Specialty Start Date End Date Chanda Nugent PCP - General Internal Medicine 01/10/18 documented as of this encounter
--- OUTSIDE RECORDS SUMMARY | 2025-02-10 16:36 | XMS_ITS | Encounter Summary ---
Author Organization [facility] [facility] Prior to 12/28/[address] [place] [address] Care Team Providers Care Bag Machine Adjuster Name Role Phone Chanda Nugent Primary Care Provider Mindy mercado Encounter Details Date Type Department Care Team Description 04/02/2018 Hospital Medical Records [address] [place] [phone] Hayden Troncoso MD Social History Tobacco Use [...] on filedocumented in this encounter Care Teams Bag Machine Adjuster Relationship Specialty Start Date End Date Chanda Nugent PCP - General Internal Medicine 01/10/18 documented as of this encounter
--- OUTSIDE RECORDS SUMMARY | 2025-02-10 16:36 | XMS_ITS | Encounter Summary ---
Author Organization [employer] Address [address] [facility] 7t [place] [address] Care Team Providers Care Doughnut Batter Mixer Name Role Phone Genevieve Gtz MD Primary Care Pro vider Reason for Visit * Reason Onset Date Comments Med Refill 01/14/2024 Encounter Details Date Type Department Care Team ([facility] Contact Info) Description 01/14/2024 Telephone [facility] MEDICINE [address] [place] [address] Genevieve Gtz MD [address] [place], [place] [phone] Med Refill Social History Tobacco Use Types [...] any questions you can contact pt at [phone]. * Telephone Encounter - Noelle Rodrigues - 01/14/2024 11:29 AM EST TC from pt requesting medication refill. Medications needing refill : oxyCODONE (Roxicodone) 5 MG immediate release tablet To be sent to: [facility]/pharmacy #[address] [place] [address] documented in this encounter Plan of Treatment Upcoming Encounters Date Type Department Care Team (Late st Contact Info) Description 02/11/2025 2:45 PM EST Clinical Support [facility] CHC MED & PEDS [address] [place] [address] Paola Thurston, KIRIT [address] [place] [address] documented as of this encounter Goals Goal [...] documented as of this encounter Care Teams Doughnut Batter Mixer Relationship Specialty Start Date End Date Genevieve Gtz MD [address] [place] [address] PCP - General Internal Medicine 10/12/22 documented as of this encounter
--- OUTSIDE RECORDS SUMMARY | 2025-02-10 16:36 | XMS_ITS | Encounter Summary ---
Author Organization [employer] Address [address] [facility] 7t [place] [address] Care Team Providers Care Body Liner Name Role Phone Genevieve Gtz MD Primary Care Pro vider Encounter Details Date Type Department Care Team ([facility] st Contact Info) Description 02/08/2025 Orders Only GENERIC EXTERNAL DATA DEPARTMENT Provider, [...] [facility] MED [facility] PEDS [address] [place] [address] Paola Thurston, RN [address] [place] [address] documented as of this encounter Goals Goal Patient Goal Type Associated Problems Recent Progress Patient-Stated? Author Blood Pressure < 140/90 Blood Pressure 129/75(2024 9:08 AM EST) No Jaime Chilel Hemoglobin A1c < 8 Result Component 5.7( 9:45 AM EST) No Jaime Chilel documented as of this encounter Procedures Procedure Name Priority Date/Time Associated Diagnosis Comments GLUCOSE, WHOLE BLOOD Routine 02/08/2025 2:42 AM EST GLUCOSE, WHOLE BLOOD Routine 02/08/2025 12:30 AM EST documented in this encounter Results * (ABNORMAL) Glucose, Whole Blood (02/08/2025 2:42 AM EST) Glucose, Whole Blood 330(H) 60 - 115 mg/dL [facility] Comment:METER #: [id number] 02/08/2025 2:42 AM EST 02/08/2025 2:46 AM EST us Generic External Data Provider LAB BLOOD ORDERAB LES Final Result [facility] [address] [place] [address] [phone] * (ABNORMAL) Glucose, Whole Blood (02/08/2025 12:30 AM EST) Glucose, Whole Blood 323(H) 60 - 115 mg/dL [facility] Comment:METER #: [id number] 02/08/2025 12:3 0 AM EST 02/08/2025 12:34 AM EST us Generic External Data Provider LAB BLOOD ORDERAB LES Final Result [facility] [address] [place] [address] [phone] documented in this encounter Visit Diagnoses Not on filedocumented in this encounter Additional Health Concerns Assessment Noted Time PHQ-9 Depression Total Score: 0 10/23/19 24 2:23 PM EDT documented as of this encounter Care Teams Body Liner Relationship Specialty Start Date End Date Genevieve Gtz MD [address] [place] [address] PCP - General Internal Medicine 10/12/22 documented as of this encounter"
--- OUTSIDE RECORDS SUMMARY | 2025-02-10 16:36 | XMS_ITS | Encounter Summary ---
Author Organization [facility] Prior to 12/28/[address] [place] [id number] Care Team Providers Care Card Mounter Name Role Phone Chanda Nugent Primary Care Provider Unav[employer]crow mercado Encounter Details Date Type Department Care Team Description 04/04/2018 Hospital Medical Records [address] [place] [address] Hayden Troncoso MD Social History Tobacco Use [...] on filedocumented in this encounter Care Teams Card Mounter Relationship Specialty Start Date End Date Chanda Nugent PCP - General Internal Medicine 01/10/18 documented as of this encounter
--- OUTSIDE RECORDS SUMMARY | 2025-02-10 16:36 | XMS_ITS | Encounter Summary ---
Author Organization [employer] Address [address] [place] [address] [place] [address] Care Team Providers Care Bobcat Operator Name Role Phone Genevieve Gtz MD Primary Care Pro vider Reason for Visit * Reason Onset Date Comments Med Refill 10/26/2022 Encounter Details Date Type Department Care Team ([facility] st Contact Info) Description 10/26/2022 Telephone [facility] MEDICINE [address] [place], [place] [phone] Genevieve Gtz MD [address] [place], [place] [phone] Med Refill Social History Tobacco Use Types [...] Please send to [facility]/pharmacy #[id number] - [place] - [address] Cool documented in this encounter Plan of Treatment Upcoming Encounters Date Type Department Care Team (Late st Contact Info) Description 02/11/2025 2:45 PM EST Clinical Support [facility] MED & PEDS [address] [place] [address] Paola Thurston, RN [address] [place] [address] documented as of this encounter Visit Diagnoses Not on filedocumented in this encounter Additional Health Concerns Assessment Noted Time PHQ-9 Depression Total Score: 0 10/13/19 2:37 PM EDT documented as of this encounter Care Teams Bobcat Operator Relationship Specialty Start Date End Date Genevieve Gtz MD [address] [place] [address] PCP - General Internal Medicine 10/12/22 documented as of this encounter
--- OUTSIDE RECORDS SUMMARY | 2025-02-10 16:36 | XMS_ITS | Encounter Summary ---
Author Organization [employer] Address [address] [facility] [address] [place] [address] Care Team Providers Care Firestop/Containment Worker Name Role Phone Genevieve Gtz MD Primary Care Pro vider Reason for Visit * Reason Onset Date Comments Hospital Follow-up 01/09/2025 Encounter Details Date Type Department Care Team ([facility] Contact Info) Description 01/09/2025 Telephone [facility] MEDICINE [address] [place] [address] Genevieve Gtz MD [address] [place] [address] Hospital Follow-up Social History Tobacco Use Types [...] from pt retuning call Contact pt at [phone] * Telephone Encounter - Clarence Taylor - 01/09/2025 12:59 PM EST Tc from pt requesting a HDF appt. 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 *Send message to [facility] [place] Clinical Care Coordinators Please contact pt at [phone] documented in this encounter Plan of Treatment Upcoming Encounters Date Type Department Care Team ([facility] st Contact Info) Description 02/11/2025 2:45 PM EST Clinical Support [facility] CHC MED & PEDS [address] [place] [address] Paola Thurston, KIRIT [address] [place] [address] documented as of this encounter Goals Goal [...] documented as of this encounter Care Teams Firestop/Containment Worker Relationship Specialty Start Date End Date Genevieve Gtz MD [address] [place] [address] PCP - General Internal Medicine 10/12/22 documented as of this encounter
--- OUTSIDE RECORDS SUMMARY | 2025-02-10 16:36 | XMS_ITS | Encounter Summary ---
Author Organization [email or web address] Address [address] [facility] [address] [place] [address] Care Team Providers Care Health Information Specialist Name Role Phone Genevieve Gtz MD Primary Care Pro vider Reason for Visit * Reason Onset Date Comments Medication Question 12/25/2024 Encounter Details Date Type Department Care Team ([facility] Contact Info) Description 12/25/2024 Telephone [facility] MEDICINE [address] [place], [place] [phone] Genevieve Gtz MD [address] [place], [place] [phone] Medication Question Social History Tobacco Use Types [...] Base) MCG/ACT inhaler To be sent to: [facility]/pharmacy #[id number] [place] [address] documented in this encounter Plan of Treatment Upcoming Encounters Date Type Department Care Team (Late st Contact Info) Description 02/11/2025 2:45 PM EST Clinical Support [facility] MED & PEDS [address] [place] [address] Paola Thurston, KIRIT [address] [place] [address] documented as of this encounter Goals Goal [...] of this encounter Care Teams Health Information Specialist Relationship Specialty Start Date End Date Genevieve Gtz MD [address] [place] [address] PCP - General Internal Medicine 10/12/22 documented as of this encounter
--- OUTSIDE RECORDS SUMMARY | 2025-02-10 16:36 | XMS_ITS ---
[...] Negative 5.0 ng/mLFor additional information, please refer tohttp://education.[employer]/faq/CIL286 (This linkis being provided for informational/ educational purposesonly.) This drug testing is for medical treatment only.Analysis was performed as non-forensic testing and theseresults should be used only by healthcare providers torender diagnosis or treatment, or to monitor progress ofmedical conditions. For assistance with interpreting thesedrug results, please contact a [employer] ToxicologySpecialist: [phone] ( ), M-F, 8am-6pmEST. These tests were developed and their analyticalperformance characteristics have beendetermined by [employer]. They have not been clearedor a pproved by the FDA. These assays have been validatedpursuant to the CLIA regulations and are used for clinicalpurposes. PERFO RMING SITE:[facility], [address] [place] [phone] Target Aircraft Controller: KORIN TRUONG MD,PHD, CLIA: [id number] 11/19/2024 11/19/2024 Genevieve Casillas MD LAB BODY FLUIDS A ND STOOLS ORDERABLES Final Result Performing Organization Address [facility] Co de Phone Number [facility] [address] [place] [phone] * Hepatitis C Antibody with Reflex to HCV, RNA, Quantitative, Real-Time PCR (03/07/2024 9:45 AM EST) Hepatitis C Antibody Nonreactive Nonreactive [facility] Comment:Antibodies to HCV no t detected; does not exclude early acuteHCV infection. Blood Venous blood specimen / Unknown 03/07/2024 9:45 AM EST 03/07/2024 11:34 AM EST Genevieve Casillas MD LAB BLOOD ORDERAB LES Final Result Performing Organization Address [facility] de Phone Number [facility] [address] [place] [phone] * HIV-1/2 Antigen and Antibodies, Fourth Generation, with Reflexes (03/07/2024 9:45 AM EST) Pathologist [facility] HIV AB/AG Nonreactive Nonreactive [facility] Comment:HIV-1 p24 Ag and/or HIV-1/HIV-2 Ab not detected.A test result that is nonreactive does not exclude thepossibility of exposure to or infection with HIV-1 and/orHIV-2. Nonreactive results in this assay for individualswith prior exposure to HIV-1 and/or HIV-2 may be due toantigen and antibody levels that are below the limit ofdetection of this assay.The Hipui HIV Ag/Ab Combo assay result andsupplemental assay results should be interpreted inconjunction with the patient's clinical presentation,history and other laboratory results. If the results areinconsistent with clinical evidence, additional testing issuggested to confirm the result. Blood Venous blood specimen / Unknown 03/07/2024 9:45 AM EST 03/07/2024 11:34 AM EST us Genevieve Casillas MD LAB BLOOD ORDERAB LES Final Result Performing Organization Address [facility] Co de Phone Number [facility] [address] [place] [phone] * Hemoglobin A1c (03/07/2024 9:45 AM EST) Hemoglobin A1c 5.7 <6.0 % [facility] Comment:Hemoglobin A1C Refer ence Range Adults: 4.8 - 6.0 % Non diabetic: < 6.0 % Goal: < 7.0 %Additional Action Suggested: > 8.0 %Note: Hemoglobin A1c results are invalid for patients with abnormal amounts of HbF. Blood transfusions may impact the HbA1c concentration in the patient sample. Estimated Average Glucose 117 mg/dL [facility] Comment:eAG = Estimated ave rage glucose which is %A1C expressed asaverage glucose, using the formula of the C6V-KzyeikvLewfsxl Glucose study (ADAG), Diabetes Care, Vol.31,#8,Sep. 2007 Blood Venous blood specimen / Unknown 03/07/2024 9:45 AM EST 03/07/2024 11:34 AM EST us Genevieve Casillas MD LAB BLOOD ORDERAB LES Final Result Performing Organization Address [facility] Co de Phone Number [facility] [address] [place] [phone] * (ABNORMAL) Lipid Panel, Standard (03/07/2024 9:45 AM EST) Triglycerides 36 <150 mg/dL [facility] Comment:Desirable Triglyceri de: less than 150 mg/dLBorderline High Triglyceride 150-199 mg/dLHigh Triglyceride: 200-499 mg/dLVery High Triglyceride: greater than or equal to 5OO mg/dL Cholesterol 107 <200 mg/dL [facility] Comment:Desirable Cholestero l: less than 200 mg/dLBorderline High Cholesterol: 200-239 mg/dLHigh Cholesterol: greater than 239 mg/dL LDL Cholesterol Calculated 65 <100 mg/dL [facility] Comment:Desirable LDL: less than 100 mg/dLNear Optimal/Above Optimal LDL: 110- 129 mg/dLBorderline High LDL: 130-159 mg/dLHigh LDL: 160-189 mg/dLVery High LDL: greater than or equal to 190 mg/dL HDL Cholesterol 35(L) >40 mg/dL [facility] Comment:Desirable HDL: great er than 40 mg/dL Note: This HDL assay may give artificially low results in patients with liver disease. Blood Venous blood specimen / Unknown 03/07/2024 9:45 AM EST 03/07/2024 11:34 AM EST Genevieve Casillas MD LAB BLOOD ORDERAB LES Final Result [facility] [address] [place] [phone] from Last 3 Months or Most Recently Relevant to Health Maintenance Insurance [facility] ONE CARE < 65 [address] [id number] [address] [place] [address] Care Teams Telex Operator Relationship Specialty Start Date End Date Genevieve Gtz MD [address] [place] [address] PCP - General Internal Medicine 10/12/22 Clinical Summary Created on: February 10, 2025 Shereen Taylor : 1990 Sex: Female Author Organization [employer] Address [address] [place] [address] [address] [place] [address] Care Team Providers Care Telex Operator Name Role Phone Genevieve Gtz MD [...] times daily. 270 tablet 12/16/19 25 Active albuterol 108 (90 Base) MCG/ACT inhaler INHALE 2 PUFFS BY MOUTH EVERY 6 HOURS NEEDED FOR WHEEZING 18 g 5 12/26/19 25 Active acetaminophen (Tylenol) 325 MG tablet Take 2 tablets by mouth every 4 (four) hours if needed for mild pain. Active valproic acid (Depakene) 250 MG capsule Take 2 capsules by mouth 3 times daily. 02/01/20 25 Active Eliquis 2.5 MG tablet Take 1 tablet by mouth 2 times daily. 02/01/20 25 Active insulin lispro (HumaLOG) 100 UNIT/ML injection 02/01/20 25 Active predniSONE (Deltasone) 10 MG tablet 02/01/20 25 Active amoxicillin-cla vulanate (Augmentin) 500-125 MG tablet 02/01/20 25 Active amLODIPine (Norvasc) 2.5 MG tablet Take 3 tablets by mouth Once per day. 02/01/20 25 Active levETIRAcetam (Keppra) 500 MG tablet Take 3 tablets by mouth 2 times daily. 02/01/20 25 Active oxyCODONE (Roxicodone) 5 MG immediate release tabletIndicatio ns:Chronic ulcer of left foot due to diabetes mellitus (HCC),Diabetic ulcer of other part of foot associated with type 1 diabetes mellitus, with other ulcer severity, unspecified laterality (HCC),Chronic wound Take 1 tablet (5 mg) by mouth every 8 (eight) hours if needed for severe pain for up to 14 days. 42 tablet 02/10/20 25 025 Active acetaminophen (Tylenol) 325 MG tabletIndicatio ns:Acute on chronic heart failure, unspecified heart failure type (HCC) TAKE 2 TABLETS BY MOUTH EVERY 4 HOURS IF NEEDED FOR MILD PAIN 120 tablet 2 02/28/19 025 Discontinued(M ed list cleanup (will not [...] not trigger notification to Pharmacy)) oxyCODONE (Roxicodone) 10 MG immediate release tablet 02/01/20 25 025 Discontinued(O ther) OxyCONTIN 10 MG 12 hr tablet 02/01/20 25 025 Discontinued(O ther) Active Problems Problem Noted Date Diagnosed Date Multiple sclerosis 09/17/2024 Acute hyperkalemia 09/04/2024 Cerebral infarction 09/04/2024 MDD (major depressive disorder), recurrent episo de 09/04/2024 Hyponatremia 09/04/2024 PAD (peripheral artery disease) 09/04/2024 Prolonged QT interval 09/04/2024 Toe necrosis ([facility]) 09/04/2024 Ulcer of left second toe 09/04/2024 Vitreous detachment 09/04/2024 Volume overload 09/04/2024 Opioid dependence 09/04/2024 Seizure disorder ([facility]) 09/04/2024 Long-term current use of opiate analgesic 2024 Neurogenic bladder 03/07/2024 Bacteremia due to Pseudomonas 01/03/2024 Infection due to 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 ([facility]) 10/23/2023 Seizure ([facility]) 10/23/2023 Opioid dependence with opioid-induced disorder ( [facility]) 10/23/2023 Blindness of both eyes 10/23/2023 Uncontrolled [...] organization. Date Type Department Care Team Description 02/10/2025 Orders Only GENERIC EXTERNAL DATA DEPARTMENT Provider, Generic External Data 02/09/2025 Refill [facility] [address] [place] [address] Paola Thurston RN Chronic ulcer of left foot due to diabetes mellitus (HCC) (Primary Dx); Diabetic ulcer of other part of foot associated with type 1 diabetes mellitus, with other ulcer severity, unspecified laterality (HCC); Chronic wound 02/09/2025 Telephone [facility] [address] [place] [address] Paola Thurston RN 02/08/2025 Orders Only GENERIC EXTERNAL DATA DEPARTMENT Provider, Generic External Data 02/07/2025 Orders Only GENERIC EXTERNAL DATA DEPARTMENT Provider, Generic External Data 02/05/2025 Travel 02/05/2025 Telephone [facility] [address] [place] [address] Paola Thurston, KIRIT 02/04/2025 Orders Only [facility] [address] [place] [phone] Genevieve Gtz MD 02/04/2025 Telephone [facility] [address] [place] [address] Genevieve Gtz MD Med Refill 02/04/2025 Telephone [facility] [address] [place] [address] Paola Thurston, RN Med Refill 02/04/2025 Telephone [facility] [address] [place] [address] Genevieve Gtz MD Med Refill 02/02/[address] [address] Genevieve Gtz MD 02/02/2025 Orders Only GENERIC EXTERNAL DATA DEPARTMENT Provider, Generic External Data 01/28/[address] [address] Genevieve Gtz MD provider out 01/27/[address] [address] Genevieve Gtz MD chartprep 01/21/2025 Orders Only [facility] External Provider, [facility] 01/14/[address] [address] Jackie Narvaez, defense travel administrator Question; Durable Medical Equipment 01/11/2025 Orders Only GENERIC EXTERNAL DATA DEPARTMENT Provider, Generic External Data 01/09/2025 Patient Outreach [address] [address] Genevieve Gtz MD Transition Of Care (Tcm) (HDF scheduled) 01/09/[address] [address] Genevieve Gtz MD Hospital Follow-up 01/08/2025 Refill [facility] [address] [place] [address] Paola Thurston, xerox machine mechanic ulcer of left foot due to diabetes mellitus (HCC) 01/08/[address] [address] Genevieve Gtz MD Med Refill 12/31/2024 10:00 AM EST Telemedicine [facility] [address] [place] [address] Paola Thurston, KIRIT Long-term current use of opiate analgesic 12/31/2024 Travel 12/25/2024 Orders Only [facility] [address] [place] [address] Genevieve Gtz MD 12/25/2024 Refill [facility] [address] [place] [address] Paola Thurston, xerox machine mechanic ulcer of left foot due to diabetes mellitus (HCC) 12/25/2024 Telephone [facility] [address] [place] [address] Genevieve Gtz MD Med Refill 12/25/2024 Telephone [facility] [address] [place] [address] Genevieve Gtz MD Medication Question 12/25/2024 Orders Only [facility] [address] [place] [address] Genevieve Gtz MD 12/23/2024 Telephone [facility] [address] [place] [phone] eGnevieve Gtz MD Durable Medical Equipment 12/22/2024 Orders Only GENERIC EXTERNAL DATA DEPARTMENT Provider, Generic External Data 12/21/2024 Orders Only GENERIC EXTERNAL DATA DEPARTMENT Provider, Generic External Data 12/19/2024 Orders Only GENERIC EXTERNAL DATA DEPARTMENT Provider, Generic External Data 12/15/2024 Refill [facility] [address] [place] [address] Paola Thurston, xerox machine mechanic ulcer of left foot due to diabetes mellitus (HCC) 12/15/2024 Telephone [facility] [address] [place] [address] Genevieve Gtz MD Med Refill 12/15/2024 Refill [facility] [address] [place], [place] [phone] Genevieve Gtz MD Benign essential hypertension 12/10/2024 Orders Only [facility] External Provider, [facility] 12/09/2024 Orders Only GENERIC EXTERNAL DATA DEPARTMENT Provider, Generic External Data 12/04/2024 Refill [facility] [address] [place] [address] Paola Thurston, xerox machine mechanic ulcer of left foot due to diabetes mellitus (HCC) 12/04/2024 Telephone [facility] [address] [place] [phone] Genevieve Gtz MD Med Refill 12/01/2024 2:30 PM EDT Telemedicine [facility] [address] [place] [address] Paola Thurston RN Long-term current use of opiate analgesic 12/01/2024 Travel 11/25/[address] [address] Genevieve Gtz MD chart prep 11/21/2024 Orders Only [facility] [address] [place] [phone] Genevieve Gtz MD Chronic ulcer of left foot due to diabetes mellitus ([facility]/HCC) 11/21/2024 Refill [facility] [address] [place] [address] Paola Thurston RN Chronic ulcer of left foot due to diabetes mellitus ([facility]/HCC) 11/21/2024 Telephone [facility] [address] [place] [phone] Genevieve Gtz MD Med Refill 11/20/2024 Telephone [facility] [address] [place] [address] Paola Thurston RN 11/19/2024 3:15 PM EDT Clinical Support [facility] [address] [place] [address] Paola Thurston, KIRIT Long-term current use of opiate analgesic (Primary Dx) 11/19/2024 Orders Only [facility] [address] [place] [phone] Genevieve Gtz MD 11/19/2024 Telephone [facility] [address] [place] [address] Paola Thurston RN 11/19/2024 Travel 11/11/2024 Telephone [facility] [address] [place], [place] [phone] Genevieve Gtz MD Medication Question from Last 3 Months Immunizations Immunization Administration [...] 02/11/2025 2:45 PM EST Clinical Support [facility] [address] [place] [address] Paola Thurston, RN [address] [place] [address] Health Maintenance Due Date Last Done Comments [...] Diagnosis Comments HIGH SENSITIVITY TROPONIN I Routine 02/10/2025 3:26 PM EST VENOUS BLOOD GAS Routine 02/10/2025 1:05 PM EST LACTIC ACID Routine 02/10/2025 1:00 PM EST PROTHROMBIN TIME-INR Routine 02/10/2025 12:59 PM EST GLUCOSE, WHOLE BLOOD Routine 02/08/2025 2:42 AM EST GLUCOSE, WHOLE BLOOD Routine 02/08/2025 12:30 AM EST XR CHEST 1 VIEW Routine 02/07/2025 10:58 PM EST VENOUS BLOOD GAS Routine 02/07/2025 10:5 5 PM EST HCG, TOTAL, QN Routine 02/07/2025 10:48 PM EST HEPATIC FUNCTION PANEL Routine 10:48 PM EST BASIC METABOLIC PANEL Routine 02/07/2025 10:48 PM EST COMPLETE BLOOD COUNT MAN DIF Routine 02/07/2025 10:48 PM EST BETA-HYDROXYBUTYRATE Routine 02/07/2025 10:48 PM EST MAGNESIUM Routine 02/07/2025 10:48 PM EST PHOSPHATE ( PHOSPHORUS) Routine 02/07/2025 10:48 PM EST CALCIUM Routine 02/07/2025 10:48 PM EST CBC WITH AUTO DIFFERENTIAL Routine 02/07/2025 10:48 PM EST SARS COV2/INFLUENZA A/B AND RSV RNA QL NAAT Routine 02/07/2025 10:48 PM EST GLUCOSE, WHOLE BLOOD Routine 02/07/2025 9:50 PM EST XR FEMUR 2+ VIEWS LEFT Routine 8:30 AM EST XR KNEE 1-2 VIEWS LEFT Routine 8:27 AM EST GLUCOSE, WHOLE BLOOD Routine [...] Results * (ABNORMAL) High Sensitivity Troponin I (02/10/2025 3:26 PM EST) Only the most recent of3 resultswithin the time period is included. TROPONIN I HIGH SENSITIVITY 87.2(HH) <3.5 - 17.0 ng/L [facility] Comment:Critical value for t est(s): TROP Results called to and readback by: IMAN Person calling: FLEMINC Date: 02/10/25Time: 1600The [place] high sensitivity Troponin-I results should beused in conjunction with other diagnostic information suchas ECG, clinical observations and information, and patientsymptoms to aid in the diagnosis of [place]. 02/10/2025 3:26 PM EST 02/10/2025 3:33 PM EST Generic External Data Provider LAB BLOOD ORDERAB LES Final Result Performing Organization Address [facility]/ZIP Co de Phone Number [facility] [address] [place] [phone] Lactic Acid (02/10/2025 1:00 PM EST) Only the most recent of4 resultswithin the time period is included. Lactic Acid 1.6 0.5 - 2.0 mmol/L [facility] 02/10/2025 1:00 PM EST 02/10/2025 1:06 PM EST Generic External Data Provider LAB BLOOD ORDERAB LES Final Result Performing Organization Address [facility] Co de Phone Number [facility] [address] [place] [phone] * (ABNORMAL) Prothrombin Time-INR (02/10/2025 12:59 PM EST) Only the most recent of3 resultswithin the time period is included. Prothrombin Time 14.3(H) 11.2 - 13.5 SEC [facility] INTERNATIONAL NORM RATIO 1.2(H) 0.9 - 1.1 [facility] Comment:INTERNATIONAL NORMAL IZED [...] mechanical prosthetic heart valves: 2.5 - 3.5 02/10/2025 12:5 9 PM EST 02/10/2025 1:06 PM EST Generic External Data Provider LAB BLOOD ORDERAB LES Final Result Performing Organization Address [facility] Co de Phone Number [facility] [address] [place] [phone] * (ABNORMAL) Glucose, Whole Blood (02/08/2025 2:42 AM EST) Only the most recent of5 resultswithin the time period is included. Glucose, Whole Blood 330(H) 60 - 115 mg/dL [facility] Comment:METER #: [id number] 02/08/2025 2:42 AM EST 02/08/2025 2:46 AM EST Generic External Data Provider LAB BLOOD ORDERAB LES Final Result Performing Organization Address [facility] de Phone Number [facility] [address] [place] [phone] * XR Chest 1 View (02/07/2025 10:58 PM EST) Only the most recent of3 resultswithin the time period is included. Anatomical Region Laterality Modality Chest Radiographic Vandana ging 02/07/2025 10:5 8 PM EST Narrative 02/07/2025 10:59 PM EST [address] [address] XRay Report Signed Patient: Shereen Taylor MR#: [id number] : 1990 Acct:[id number] Age/Sex: 34 / F ADM Date: 02/07/25 Loc: HO.ED Attending Dr: Ordering Physician: Sylvia Saxena MD Date of Service: 02/07/25 Procedure(s): XR chest 1V Accession Number(s): [id number] cc: Sylvia Saxena MD; Genevieve Gtz MD [...] in OV> 02/07/252258 DD/ 57 TD/TT: 02/07/252257 Lamination Inspector: Procedure Note Donotuseinterpreter, Image - 02/07/2025 [place] [address] XRay Report Signed Patient: Danna Taylor#: [id number] : 1990Acct:[id number] Age/Sex: 34 / FADM Date: 02/07/25 Loc: .ED Attending Dr: Ordering Physician: Sylvia Saxena MD Date of Service: 02/07/25 Procedure(s): XR chest 1V Accession Number(s): [id number] cc: Sylvia Saxena MD; Genevieve Gtz MD [...] in OV> 02/07/252258 DD/ 57 TD/TT: 02/07/252257 Lamination Inspector: us [facility] External Provider IMG XR PROCEDURES Edited Result - Final * VENOUS BLOOD GAS (02/07/2025 10:55 PM EST) Only the most recent of3 resultswithin the time period is included. VBG pH 7.37 7.32 - 7.43 [facility] Comment:METER #: [id number] additional_comment: Cb hoferrinc 2248 VBG PCO2 37 mmHg [facility] Comment:METER #: [id number] additional_comment: Cb hoferrinc 2248 VBG PO2 78 mmHg [facility] Comment:METER #: [id number] additional_comment: Cb hoferrinc 2248 VBG Base Excess -2.7 mmol/L [facility] Comment:METER #: [id number] additional_comment: Cb hoferrinc 2248 VBG HCO3 22 22 - 26 mmol/L [facility] Comment:METER #: [id number] additional_comment: Cb hoferrinc 2248 O2 Sat, Uday 93.0 % [facility] Comment:METER #: [id number] additional_comment: Cb hoferrinc 2248 02/07/2025 10:5 5 PM EST 02/07/2025 10:59 PM EST us Generic External Data Provider LAB BLOOD ORDERAB LES Final Result [facility] [address] [place] [phone] * (ABNORMAL) Complete Blood Count Manual Diff (02/07/2025 10:48 PM EST) White Blood Count 11.5(H) 4.8 - 10.8 X10*3/uL [facility] Red Blood Count 2.67(L) 4.20 - 5.50 X10*6/uL [facility] Hemoglobin 8.2(L) 12.0 - 16.0 g/dl [facility] Hematocrit 24.3(L) 37.0 - 47.0 % [facility] Mean Corpuscular Volume 91.0 80.0 - 98.0 fL [facility] Mean Corpuscular Hemoglobin 30.7 27.0 - 33.0 pg [facility] Mean Corpuscular HGB Conc 33.7 31.0 - 35.0 g/dl [facility] Red Cell Distribution Width 16.4(H) 11.0 - 16.0 % [facility] Platelet Count 125(L) 160 - 400 X10*3/uL [facility] Mean Platelet Volume 12.8(H) 9.4 - 12.3 fL [facility] NRBC Pct Auto 0.0 0.0 - 0.2 /100WBC [facility] NRBC Abs Auto 0.000 0.0 - 0.012 X10*3/uL [facility] Neutrophils % Manual 95(H) 45 - 73 % [facility] Band Neutrophils Percent 2(L) 3 - 5 % [facility] Lymphocytes Percent Manual 2(L) 20 - 40 % [facility] Monocytes Percent Manual 1(L) 2 - 11 % [facility] NEUTROPHILS ABSOLUTE MANUAL 11.2(H) 2.0 - 8.3 X10*3/uL [facility] LYMPHOCYTES ABSOLUTE MANUAL 0.2(L) 1.2 - 4.9 X10*3/uL [facility] MONOCYTES ABSOLUTE MANUAL 0.1 0.1 - 1.2 X10*3/uL [facility] Platelet Estimate SLIGHTLY DECREASED NORMAL [facility] Large Platelet PRESENT [facility] Platelet Morphology Comment NORMAL [facility] RBC Morphology NOTED [facility] SPHEROCYTES 1+ (0-2) /OIF [facility] Fareed Cells 1+ (0-2) /OIF [facility] [facility] Schistocytes 1+ (0-2) /OIF [facility] 02/07/2025 10:4 8 PM EST 02/07/2025 10:52 PM EST Generic External Data Provider LAB BLOOD ORDERAB LES Final Result Performing Organization Address [facility] Co de Phone Number [facility] [address] [place] [phone] * SARS-CoV-2 RNA, Influenza A/B, and RSV RNA, Ql NAAT (02/07/2025 10:48 PM EST) Only the most recent of2 resultswithin the time period is included. Influenza A PCR NEGATIVE Negative [facility] Influenza B PCR NEGATIVE Negative [facility] Resp Syncy Virus RNA Qual PCR NEGATIVE Negative [facility] SARS COV2 PCR NEGATIVE Negative [facility] Comment:All test results mus t [...] use by authorized laboratories.Testing performed on the [employer] GeneXpert utilizingreal-time RT-PCR.All SARS CoV2 and positive influenza A/B results arereported to [facility]. 02/07/2025 10:4 8 PM EST 02/07/2025 10:52 PM EST us Generic External Data Provider LAB MICROBIOLOGY - GENERAL ORDERABLES Final Result Performing Organization Address City/[facility]/ZIP Co de Phone Number [facility] [address] [place] [phone] * Beta-Hydroxybutyrate (02/07/2025 10:48 PM EST) Only the most recent of2 resultswithin the time period is included. Beta-Hydroxybut yrate 0.11 0.02 - 0.27 mmol/L [facility] 02/07/2025 10:4 8 PM EST 02/07/2025 10:52 PM EST Generic External Data Provider LAB BLOOD ORDERAB LES Final Result Performing Organization Address [facility] de Phone Number [facility] [address] [place] [phone] * hCG, Total, Quantitative (02/07/2025 10:48 PM EST) HCG Quantitative <2 mIU/mL [facility] Comment:Weeks post LMP Appro ximate hCG(Last Menstrual Period) Range (mIU/ml)3 - 4 weeks 9 - 1304 - 5 weeks 75 - 2,6005 - 6 weeks 850 - 20,8006 - 7 weeks 4000 - 100,2007 - 12 weeks 11,500 - 289,67170 - 16 weeks 18,300 - 137,35084 - 29 weeks (2nd trimester) 1,400 - 53,53906 - 41 weeks (3rd trimester) 940 - [...] LES Final Result Performing Organization Address [facility] Co de Phone Number [facility] [address] [place] [phone] * (ABNORMAL) Phosphate (As Phosphorus) (02/07/2025 10:48 PM EST) Phosphorus 7.5(H) 2.7 - 4.5 mg/dL [facility] 02/07/2025 10:4 8 PM EST 02/07/2025 10:52 PM EST us Generic External Data Provider LAB BLOOD ORDERAB LES Final Result Performing Organization Address [facility] Co de Phone Number [facility] [address] [place] [phone] * (ABNORMAL) Magnesium (02/07/2025 10:48 PM EST) Only the most recent of5 resultswithin the time period is included. Magnesium 2.8(H) 1.6 - 2.6 mg/dL [facility] 02/07/2025 10:4 8 PM EST 02/07/2025 10:52 PM EST Generic External Data Provider LAB BLOOD ORDERAB LES Final Result Performing Organization Address [facility] Co de Phone Number [facility] [address] [place] [phone] * (ABNORMAL) Calcium (02/07/2025 10:48 PM EST) Calcium 7.6(L) 8.4 - 10.2 mg/dL [facility] 02/07/2025 10:4 8 PM EST 02/07/2025 10:52 PM EST Generic External Data Provider LAB BLOOD ORDERAB LES Final Result Performing Organization Address [facility] Co de Phone Number [facility] [address] [place] [phone] * (ABNORMAL) Hepatic Function Panel (02/07/2025 10:48 PM EST) Only the most recent of3 resultswithin the time period is included. Bilirubin, Total 0.6 0.0 - 1.0 mg/dL [facility] Bilirubin, Direct 0.3 0.0 - 0.5 mg/dL [facility] Aspartate Amino Transferase 29 5 - 31 U/L [facility] Alanine Aminotransferase 34(H) 0 - 31 U/L [facility] Total Protein 6.5 6.5 - 8.0 g/dL [facility] Albumin Level 3.5 3.5 - 5.0 g/dL [facility] Alkaline Phosphatase 210(H) 39 - 117 U/L [facility] 02/07/2025 10:4 8 PM EST 02/07/2025 10:52 PM EST us Generic External Data Provider LAB BLOOD ORDERAB LES Final Result Performing Organization Address City/State/[facility] Co de Phone Number [facility] [address] [place] [phone] * (ABNORMAL) Basic Metabolic Panel (02/07/2025 10:48 PM EST) Only the most recent of2 resultswithin the time period is included. Pathologist [facility] Sodium 133(L) 135 - 145 mmol/L [facility] Potassium 5.7(H) 3.3 - 5.1 mmol/L [facility] Chloride 98 96 - 108 mmol/L [facility] Carbon Dioxide 20(L) 22 - 29 mmol/L [facility] Anion Gap 21(H) 12 - 20 [facility] Urea Nitrogen (BUN) 105(H) 9 - 16 mg/dL [facility] Creatinine, Serum 8.68(HH) 0.5 - 1.4 mg/dL [facility] Comment:Critical value for t est(s): CREA2 Results called to rhett back by: MATONPerson calling: ALKASAB Date:02/07/25Time:22:21 Creatinine Clr Calc Pharmacy 10.4 [facility] Comment:eGFR (calculated fro m the MDRD study equation) and eCrCl(calculated from the Cockcroft-Gault equation) are based ondifferent parameters and may not yield comparable results.If eCrCl result is absurd, please check patient'sheight/weight. Estimated Glomerular Filt Rate 5 [facility] Comment:Chronic Kidney Disea se: Estimated GFR < 60 mL/min/1.65k4Cimviz Kidney Disease: Estimated GFR < 15 mL/min/1.73m2 Glucose 495(HH) 60 - 115 mg/dL [facility] Comment:Critical value for t est(s):GLUR Results called to and readback by: BRUNO Person calling: ALKASAB Date: 02/07/25Time:22:21 Calcium 7.6(L) 8.4 - 10.2 mg/dL [facility] 02/07/2025 10:4 8 PM EST 02/07/2025 10:52 PM EST us Generic External Data Provider LAB BLOOD ORDERAB LES Final Result [facility] [address] [place] [phone] * XR Femur 2+ Views Left (02/02/2025 8:30 AM EST) Anatomical Region Laterality Modality Lower Extremities, Femur Left Radiogr aphic Imaging 02/02/2025 8:30 AM EST Narrative 02/02/2025 8:51 AM EST [address] [address] XRay Report Signed Patient: Shereen Taylor MR#: [id number] : 1990 Acct:[id number] Age/Sex: 34 / F ADM Date: 02/02/25 Loc: [facility]: Padmini Marcelino MD Ordering Physician: Chasity Garzon Date of Service: 02/02/25 Procedure(s): XR femur LT 2V Accession Number(s): [id number] cc: Chasity Garzon; Genevieve Gtz MD Reason [...] in OV> 02/02/25847 DD/ 9 TD/TT: 02/02/25837 Lamination Inspector: Procedure Note Donotuseinterpreter, Image - 02/02/2025 [place] [address] XRay Report Signed Patient: Danna Taylor#: [id number] : 1990Acct:[id number] Age/Sex: 34 / FADM Date: 02/02/25 Loc: [facility]: Padmini Marcelino MD Ordering Physician: Chasity Garzon [facility] Date of Service: 02/02/25 Procedure(s): XR femur LT 2V Accession Number(s): [id number] cc: Chasity Garzon [facility]; Genevieve Gtz MD Reason for Exam: s/p [...] Mason MD Signed By: <Electronically signed by Nahum Chen OV> 02/02/25847 DD/ 9 TD/TT: 02/02/25837 Lamination Inspector: [facility] External Provider IMG XR PROCEDURES Edited Result - Final * XR Knee 1-2 Views Left (02/02/2025 8:27 AM EST) Anatomical Region Laterality Modality Lower Extremities, Knee Left Radiogra phic Imaging 02/02/2025 8:27 AM EST Narrative 02/02/2025 8:46 AM EST [place] [address] XRay Report Signed Patient: Shereen Taylor MR#: [id number] : 1990 Acct:[id number] Age/Sex: 34 / F ADM Date: 02/02/25 Loc: [facility]: Padmini Marcelino MD Ordering Physician: Chasity Garzon [facility] Date of Service: 02/02/25 Procedure(s): XR knee LT 2V Accession Number(s): [id number] cc: Chasity Garzon [facility]; Genevieve Gtz MD Reason for Exam: s/p [...] Shadi Lopez MD 02/02/2025 08:44 AM EST RP Dictated By: Shadi Mason MD Signed By: <Electronically signed by Shadi Narvaez MD in OV> 02/02/2544 DD/ 6 TD/TT: 02/02/25837 Lamination Inspector: Procedure Note Donotuseinterpreter, Image - 02/02/2025 [place] [address] XRay Report Signed Patient: Danna Taylor#: [id number] : 1990Acct:[id number] Age/Sex: 34 / FADM Date: 02/02/25 Loc: [facility]: Padmini Marcelino MD Ordering Physician: Chasity Garzon Date of Service: 02/02/25 Procedure(s): XR knee LT 2V Accession Number(s): [id number] cc: Chasity GarzonNOMAN; Genevieve Gtz MD Reason [...] Shadi Lopez MD 02/02/2025 08:44 AM EST RP Dictated By: hSadi Mason MD Signed By: <Electronically signed by Nahum Chen OV> 02/02/2544 DD/ 6 TD/TT: 02/02/25837 Lamination Inspector: us [facility] External Provider IMG XR PROCEDURES Edited Result - Final * (ABNORMAL) Urinalysis, Complete, with Reflex to Culture (02/02/2025 2:37 AM EST) Only the most recent of2 resultswithin the time period is included. Color Urine Yellow [facility] Appearance Urine Cloudy [facility] PH 7.0 5.0 - 9.0 [facility] Glucose Urine UA 500(A) Negative mg/dL [facility] Urine Blood Negative Negative [facility] Specific [place] - Urine 1.020 1.005 - 1.025 [facility] Urine Protein 300 (3+)(A) Neg-Trace mg/dL [facility] Urine Ketones Negative Negative mg/dL [facility] Nitrite Urine Negative Negative [facility] Leukocyte Esterase Urine Small (1+)(A) Negative [facility] RBC Urine 0-2 0 - 2 /HPF [facility] Urine WBC 11-20(A) 0 - 5 /HPF [facility] Urine Squamous Epithelial Cell 11-20 0 - 2 /HPF [facility] Urine Bacteria 4+ None Seen [facility] Hyaline Casts, Urine 3-5 0 - 2 /LPF [facility] 02/02/2025 2:37 AM EST 02/02/2025 2:40 AM EST Narrative [facility] - 02/02/2025 3:11 AM EST Urine, Catheterized Generic External Data Provider LAB URINE ORDERAB LES Final Result [facility] [address] [place] [phone] * (ABNORMAL) Comprehensive Metabolic Panel (02/02/2025 12:58 AM EST) Only the most recent of4 resultswithin the time period is included. Sodium 127(L) 135 - 145 mmol/L [facility] Potassium 5.7(H) 3.3 - 5.1 mmol/L [facility] Chloride 93(L) 96 - 108 mmol/L [facility] Carbon Dioxide 18(L) 22 - 29 mmol/L [facility] Anion Gap 22(H) 12 - 20 [facility] Urea Nitrogen (BUN) 96(H) 9 - 16 mg/dL [facility] Creatinine, Serum 7.65(HH) 0.5 - 1.4 mg/dL [facility] Comment:Critical value for t est(s): CREAT Results called to hussainad back by: TIERRA Person calling: Pathgather Date: 02/02/25Time: 015 Creatinine Clr Calc Pharmacy 11.3 [facility] Comment:Provided height and weight: 167.64 cm,87.2 kg.eGFR (calculated from the MDRD study equation) and eCrCl(calculated from the Cockcroft-Gault equation) are based ondifferent parameters and may not yield comparable results.If eCrCl result is absurd, please check patient'sheight/weight. Estimated Glomerular Filt Rate 6 [facility] Comment:Chronic Kidney Disea se: Estimated GFR < 60 mL/min/1.18a9Xgmrzg Kidney Disease: Estimated GFR < 15 mL/min/1.73m2 Glucose 558(HH) 60 - 115 mg/dL [facility] Comment:Critical value for t est(s): GLU Results called to and readback by: TIERRA Person calling: Pathgather Date: 02/02/25 Time:015 Calcium 7.2(L) 8.4 - 10.2 mg/dL [facility] Bilirubin, Total 0.6 0.0 - 1.0 mg/dL [facility] Aspartate Amino Transferase 11 5 - 31 U/L [facility] Alanine Aminotransferase 9 0 - 31 U/L [facility] Total Protein 6.4(L) 6.5 - 8.0 g/dL [facility] Albumin Level 3.7 3.5 - 5.0 g/dL [facility] Alkaline Phosphatase 134(H) 39 - 117 U/L [facility] 02/02/2025 12:5 8 AM EST 02/02/2025 1:01 AM EST Generic External Data Provider LAB BLOOD ORDERAB LES Final Result Performing Organization Address City/[facility]/ZIP Co de Phone Number [facility] [address] [place] [phone] * Slide Review (02/02/2025 12:57 AM EST) Only the most recent of2 resultswithin the time period is included. Slide Review VERIFIED [facility] 02/02/2025 12:5 7 AM EST 02/02/2025 1:01 AM EST Generic External Data Provider LAB BLOOD ORDERAB LES Final Result Performing Organization Address [facility] Co de Phone Number [facility] [address] [place] [phone] * (ABNORMAL) CBC auto differential (02/02/2025 12:57 AM EST) Only the most recent of5 resultswithin the time period is included. White Blood Count 16.2(H) 4.8 - 10.8 X10*3/uL [facility] Red Blood Count 3.80(L) 4.20 - 5.50 X10*6/uL [facility] Hemoglobin 11.5(L) 12.0 - 16.0 g/dl [facility] Hematocrit 34.5(L) 37.0 - 47.0 % [facility] Mean Corpuscular Volume 90.8 80.0 - 98.0 fL [facility] Mean Corpuscular Hemoglobin 30.3 27.0 - 33.0 pg [facility] Mean Corpuscular HGB Conc 33.3 31.0 - 35.0 g/dl [facility] Red Cell Distribution Width 15.8 11.0 - 16.0 % [facility] Platelet Count 156(L) 160 - 400 X10*3/uL [facility] Mean Platelet Volume 12.6(H) 9.4 - 12.3 fL [facility] Neutrophils Percent Auto 94.0(H) 45 - 73 % [facility] Imm Gran Pct Auto 1.2(H) 0.0 - 0.4 % [facility] Lymphocytes Percent Auto 1.5(L) 20 - 40 % [facility] Monocytes Percent Auto 3.2 2 - 11 % [facility] Eosinophils Percent Auto 0.0 0 - 4 % [facility] Basophils Percent Auto 0.1 0 - 2 % [facility] NRBC Pct Auto 0.0 0.0 - 0.2 /100WBC [facility] Neutrophils Absolute Auto 15.2(H) 2.0 - 8.3 x10*3/uL [facility] Imm Gran Abs Auto 0.20(H) 0.00 - 0.03 X10*3/uL [facility] Lymphocytes Absolute Auto 0.2(L) 1.2 - 4.9 X10*3/uL [facility] Monocytes Absolute Auto 0.5 0.1 - 1.2 X10*3/uL [facility] Eosinophils Absolute Auto 0.0 0.0 - 0.4 X10*3/uL [facility] Basophils Absolute Auto 0.0 0.0 - 0.2 X10*3/uL [facility] NRBC Abs Auto 0.000 0.0 - 0.012 X10*3/uL [facility] 02/02/2025 12:5 7 AM EST 02/02/2025 1:01 AM EST us Generic External Data Provider LAB BLOOD ORDERAB LES Edited Result - Final [facility] [address] [place] [phone] * Ammonia, Plasma (02/02/2025 12:57 AM EST) Ammonia (P) 24 13 - 55 umol/L [facility] 02/02/2025 12:5 7 AM EST 02/02/2025 1:01 AM EST us Generic External Data Provider LAB BLOOD ORDERAB LES Final Result [facility] [address] [place] [phone] * XR KUB and Upright 2 Views (01/31/2025 2:21 PM EST) Anatomical Region Laterality Modality Radiographic Vandana ging 01/31/2025 2:21 PM EST Narrative 01/31/2025 2:22 PM EST [address] [address] XRay Report Signed Patient: Shereen Taylor MR#: [id number] : 1990 Acct:[id number] Age/Sex: 34 / F ADM Date: 01/21/25 Loc: .S3 383-[address]: Contreras Blanton MD Ordering Physician: Contreras Blanton MD Date of Service: 01/31/25 Procedure(s): XR KUB Accession Number(s): [id number] cc: Contreras Blanton MD; Genevieve Gtz MD [...] 01/31/25 1422 DD/ 1421 TD/TT: 01/31/25 1421 Lamination Inspector: Procedure Note Donotuseinterpreter, Image - 01/31/[address] [address] XRay Report Signed Patient: Danna Taylor#: [id number] : 1990Acct:[id number] Age/Sex: 34 / FADM Date: 01/21/25 Loc: . 383-[address]: Contreras Blanton MD Ordering Physician: Contreras Blanton MD Date of Service: 01/31/25 Procedure(s): XR KUB Accession Number(s): [id number] cc: Contreras Blanton MD; Genevieve Gtz MD [...] 01/31/25 1422 DD/ 1421 TD/TT: 01/31/25 1421 Lamination Inspector: us [facility] External Provider IMG XR PROCEDURES Edited Result - Final * (ABNORMAL) Creatine Kinase, Total (01/11/2025 2:06 PM EST) Creatine Kinase Total 223(H) 26 - 140 U/L [facility] 01/11/2025 2:06 PM EST 01/11/2025 2:08 PM EST Generic External Data Provider LAB BLOOD ORDERAB LES Final Result [facility] [address] [place] [phone] * CT Cervical Spine w/o Contrast (12/22/2024 10:37 AM EDT) Anatomical Region Laterality Modality Spine, C-spine Computed Tomogra phy 12/22/2024 10:3 7 AM EDT Narrative 12/22/2024 11:17 AM EDT [place] [address] CT Scan Report Signed Patient: Shereen Taylor MR#: [id number] : 1990 Acct:[id number] Age/Sex: 34 / F ADM Date: 12/22/24 Loc: HO.ED Attending Dr: Ordering Physician: Urszula Garcia Date of Service: 12/22/24 Procedure(s): CT cervical spine wo IV con Accession Number(s): [id number] cc: Genevieve Gtz MD; Urszula Garcia Report Number: [id number]: Total DLP = 508.00 mGy-cm Reason for [...] 12/22/24 1113 DD/ 1037 TD/TT: 12/22/24 1051 Lamination Inspector: Procedure Note Donotuseinterpreter, Image - 12/22/[address] [address] [address] Scan Report Signed Patient: Danna Taylor#: [id number] : 1990Acct:[id number] Age/Sex: 34 / FADM Date: 12/22/24 Loc: HO.ED Attending Dr: Ordering Physician: Urszula Garcia Date of Service: 12/22/24 Procedure(s): CT cervical spine wo IV con Accession Number(s): [id number] cc: Genevieve Gtz MD; Urszula Garcia Report Number: [id number]: Total DLP = 508.00 mGy-cm Reason for [...] 12/22/24 1113 DD/ 1037 TD/TT: 12/22/24 1051 Lamination Inspector: us [facility] External Provider IMG CT PROCEDURES Edited Result - Final * CT Head w/o Contrast (12/22/2024 10:37 AM EDT) Only the most recent of2 resultswithin the time period is included. Anatomical Region Laterality Modality Head, Neck Computed Tomogra phy 12/22/2024 10:3 7 AM EDT Narrative 12/22/2024 11:08 AM EDT [place] [address] CT Scan Report Signed Patient: Shereen Taylor MR#: [id number] : 1990 Acct:[id number] Age/Sex: 34 / F ADM Date: 12/22/24 Loc: HO.ED Attending Dr: Ordering Physician: Urszula Garcia Date of Service: 12/22/24 Procedure(s): CT head/brain wo IV con Accession Number(s): [id number] cc: Genevieve Gtz MD; Urszula Garcia Report Number: [id number]: Total DLP = 706.00 mGy-cm Reason for [...] 12/22/24 1105 DD/ 1037 TD/TT: 12/22/24 1051 Lamination Inspector: Procedure Note Donotuseinterpreter, Image - 12/22/[address] [place] [address] [address] Scan Report Signed Patient: Danna Taylor#: [id number] : 1990Acct:[id number] Age/Sex: 34 / FADM Date: 12/22/24 Loc: HO.ED Attending Dr: Ordering Physician: Urszula Garcia Date of Service: 12/22/24 Procedure(s): CT head/brain wo IV con Accession Number(s): [id number] cc: Genevieve Gtz MD; Urszula Garcia Report Number: [id number]: Total DLP = 706.00 mGy-cm Reason for [...] 12/22/24 1105 DD/ 1037 TD/TT: 12/22/24 1051 Lamination Inspector: [facility] External Provider IMG CT PROCEDURES Edited Result - Final * XR Foot 3+ Views Left (12/22/2024 9:35 AM EDT) Anatomical Region Laterality Modality Lower Extremities, Foot Left Radiogra phic Imaging 12/22/2024 9:35 AM EDT Narrative 12/22/2024 10:00 AM EDT [place] [address] XRay Report Signed Patient: Shereen Taylor MR#: [id number] : 1990 Acct:[id number] Age/Sex: 34 / F ADM Date: 12/22/24 Loc: HO.ED Attending Dr: Ordering Physician: Urszula Garcia Date of Service: 12/22/24 Procedure(s): XR foot LT min 3V Accession Number(s): [id number] cc: Genevieve Gtz MD; Urszula Garcia Reason [...] in OV> 12/22/2457 DD/ 4 TD/TT: 12/22/24939 Lamination Inspector: CRISTI Procedure Note Donotuseinterpreter, Image - 12/22/2024 [place] [address] XRay Report Signed Patient: Danna Taylor#: [id number] : 1990Acct:[id number] Age/Sex: 34 / FADM Date: 12/22/24 Loc: HO.ED Attending Dr: Ordering Physician: Urszula Garcia Date of Service: 12/22/24 Procedure(s): XR foot LT min 3V Accession Number(s): [id number] cc: Genevieve Gtz MD; Urszula Garcia Reason [...] Babak Cloud MD 12/22/2024 09:57 AM EDT RP Dictated By: Babak Cloud MD Signed By: <Electronically signed by Babak Cloud MD in OV> 12/22/2457 DD/ TD/TT: 12/22/24939 Lamination Inspector: CRISTI us [facility] External Provider IMG XR PROCEDURES Edited Result - Final * Hold Red (12/22/2024 9:22 AM EDT) Hold Red See Note [facility] Comment:Specimen held untest ed for 24 hours; Call to requestChemistry testing. 12/22/2024 9:22 AM EDT 12/22/2024 9:49 AM EDT Generic External Data Provider LAB BLOOD ORDERAB LES Final Result [facility] [address] [place] [phone] * CT Chest w/o Contrast (12/21/2024 3:02 PM EDT) Anatomical Region Laterality Modality Body, Chest Computed Tomogra phy 12/21/2024 3:02 PM EDT Narrative 12/21/2024 3:04 PM EDT [address] [address] [address] Scan Report Signed Patient: Shereen Taylor MR#: [id number] : 1990 Acct:[id number] Age/Sex: 34 / F ADM Date: 12/21/24 Loc: HO.ED Attending Dr: Ordering Physician: Bonilla Villareal MD Date of Service: 12/21/24 Procedure(s): CT chest wo IV con Accession Number(s): [id number] cc: Bonilla Villareal MD; Genevieve Gtz MD Report Number: [id number]: Total DLP = 0.00 mGy-cm Reason for [...] 12/21/24 1503 DD/ 1502 TD/TT: 12/21/24 1502 Lamination Inspector: Procedure Note Donotuseinterpreter, Image - 12/21/[address] [address] [address] Scan Report Signed Patient: Christian TaylorR#: [id number] : 1990Acct:[id number] Age/Sex: 34 / FADM Date: 12/21/24 Loc: HO.ED Attending Dr: Ordering Physician: Bonilla Villareal MD Date of Service: 12/21/24 Procedure(s): CT chest wo IV con Accession Number(s): [id number] cc: Bonilla Villareal MD; Genevieve Gtz MD Report Number: [id number]: Total DLP = 0.00 mGy-cm Reason for [...] 12/21/24 1503 DD/ 1502 TD/TT: 12/21/24 1502 Lamination Inspector: [facility] External Provider IMG CT PROCEDURES Edited Result - Final * CT Abdomen Pelvis w/o Contrast (12/21/2024 3:02 PM EDT) Anatomical Region Laterality Modality Body, Pelvis, Abdomen Computed T omography 12/21/2024 3:02 PM EDT Narrative 12/21/2024 3:04 PM EDT [place] [address] CT Scan Report Signed Patient: Shereen Taylor MR#: [id number] : 1990 Acct:[id number] Age/Sex: 34 / F ADM Date: 12/21/24 Loc: HO.ED Attending Dr: Ordering Physician: Bonilla Villareal MD Date of Service: 12/21/24 Procedure(s): CT abdomen pelvis wo IV con Accession Number(s): [id number] cc: Bonilla Villareal MD; Genevieve Gtz MD Report Number: [id number]: Total DLP = 2186.00 mGy-cm Reason for [...] 12/21/24 1503 DD/ 1502 TD/TT: 12/21/24 1502 Lamination Inspector: Procedure Note Donotuseinterpreter, Image - 12/21/[address] [place] [address] [address] Scan Report Signed Patient: Danna Taylor#: [id number] : 1990Acct:[id number] Age/Sex: 34 / FADM Date: 12/21/24 Loc: HO.ED Attending Dr: Ordering Physician: Bonilla Villareal MD Date of Service: 12/21/24 Procedure(s): CT abdomen pelvis wo IV con Accession Number(s): [id number] cc: Bonilla Villareal MD; Genevieve Gtz MD Report Number: [id number]: Total DLP = 2186.00 mGy-cm Reason for [...] 12/21/24 1503 DD/ 1502 TD/TT: 12/21/24 1502 Lamination Inspector: [facility] External Provider IMG CT PROCEDURES Edited Result - Final * TSH (12/21/2024 12:49 PM EDT) Thyroid Stimulating Hormone 1.18 0.32 - 4.0 uIU/mL [facility] Comment:TSH 3rd Generation ( [facility]) 12/21/2024 12:4 9 PM EDT 12/21/2024 12:51 PM EDT Generic External Data Provider LAB BLOOD ORDERAB LES Final Result Performing Organization Address City/[facility]/ZIP Co de Phone Number [facility] [address] [place] [phone] * Hold Green Gel (12/19/2024 1:42 PM EDT) Hold Green Gel See Note [facility] Comment:Specimen held untest ed for 24 hours; Call to requestChemistry testing. 12/19/2024 1:42 PM EDT 12/19/2024 1:49 PM EDT Generic External Data Provider HISTORICAL/NON OR DERABLE LABS Final Result Performing Organization Address City/[facility]/ZIP Co de Phone Number [facility] [address] [place] [phone] * Blood Culture (Second) (12/19/2024 1:42 PM EDT) Blood Venous blood specimen / Unknown 12/19/2024 1:42 PM EDT 12/19/2024 1:47 PM EDT Comment:Blood Narrative [facility] - 12/24/2024 3:47 PM EDT Blood Culture (Second) No growth after 5 days. Specimen Source: Blood us Generic External Data Provider LAB MICROBIOLOGY - GENERAL ORDERABLES Final Result Performing Organization Address [facility] Co de Phone Number [facility] [address] [place] [phone] * Blood Culture (First) (12/19/2024 1:33 PM EDT) Blood Venous blood specimen / Unknown 12/19/2024 1:33 PM EDT 12/19/2024 1:36 PM EDT Comment:Blood Narrative [facility] - 12/24/2024 3:36 PM EDT Blood Culture (First) No growth after 5 days. Specimen Source: Blood Generic External Data Provider LAB MICROBIOLOGY - GENERAL ORDERABLES Final Result Performing Organization Address [facility] Co de Phone Number [facility] [address] [place] [phone] * Partial Thromboplastin Time, Activated (APTT) (12/19/2024 1:33 PM EDT) Partial Thromboplastin Time 34.0 26.7 - 34.1 SEC [facility] 12/19/2024 1:33 PM EDT 12/19/2024 1:36 PM EDT Generic External Data Provider LAB BLOOD ORDERAB LES Final Result Performing Organization Address [facility] Co de Phone Number [facility] [address] [place] [phone] * (ABNORMAL) Sed Rate by Modified Axelren (12/19/2024 1:33 PM EDT) Only the most recent of2 resultswithin the time period is included. Erythrocyte Sedimentation Rate 54(H) 0 - 20 MM/HR [facility] Comment:Patients with polycy themia and many hemoglobin abnormalitiesmay have depressed sed rates whereas patients with anemiamay have elevated sed rates. 12/19/2024 1:33 PM EDT 12/19/2024 1:36 PM EDT Generic External Data Provider LAB BLOOD ORDERAB LES Final Result Performing Organization Address [facility]/ZIP Co de Phone Number [facility] [address] [place] [phone] * (ABNORMAL) C-reactive Protein (12/19/2024 1:33 PM EDT) C Reactive Protein 0.84(H) < or = 0.50 mg/dL [facility] 12/19/2024 1:33 PM EDT 12/19/2024 1:36 PM EDT Generic External Data Provider LAB BLOOD ORDERAB LES Final Result Performing Organization Address [facility] Co de Phone Number [facility] [address] [place] [phone] * Lipase (12/19/2024 1:33 PM EDT) Only the most recent of2 resultswithin the time period is included. Lipase 37 8 - 78 U/L [facility] 12/19/2024 1:33 PM EDT 12/19/2024 1:36 PM EDT Generic External Data Provider LAB BLOOD ORDERAB LES Final Result Performing Organization Address [facility] Co de Phone Number [facility] [address] [place] [phone] * MR Foot w and w/o Contrast Left (12/11/2024 12:21 PM EDT) Anatomical Region Laterality Modality Lower Extremities, Foot Left Magnetic Resonance 12/11/2024 12:2 1 PM EDT Narrative 12/11/2024 2:14 PM EDT [place] [address] Magnetic Resonance Report Signed Patient: Shereen Taylor MR#: [id number] : 1990 Acct:[id number] Age/Sex: 34 / F ADM Date: 12/10/24 Loc: HO.S3 361-[address]: Ellen Frankel MD Ordering Physician: Lele Allan MD Date of Service: 12/11/24 Procedure(s): MR foot LT wo/w con Accession Number(s): [id number] cc: Lele Allan MD; Genevieve Gtz MD [...] 12/11/24 1411 DD/ 1221 TD/TT: 12/11/24 1310 Lamination Inspector: CRISTI Procedure Note Donotuseinterpreter, Image - 12/11/2024 [place] [address] Magnetic Resonance Report Signed Patient: Danna Taylor#: [id number] : 1990Acct:[id number] Age/Sex: 34 / FADM Date: 12/10/24 Loc: HO.S3 361-[address]: Ellen Frankel MD Ordering Physician: Lele Allan MD Date of Service: 12/11/24 Procedure(s): MR foot LT wo/w con Accession Number(s): [id number] cc: Lele Allan MD; Genevieve Gtz MD [...] 12/11/24 1411 DD/ 1221 TD/TT: 12/11/24 1310 Lamination Inspector: CRISTI us [facility] External Provider IMG MRI PROCEDURES Final Result * XR Foot 1-2 Views Left (12/09/2024 8:38 PM EDT) Anatomical Region Laterality Modality Lower Extremities, Foot Left Radiogra phic Imaging 12/09/2024 8:38 PM EDT Narrative 12/09/2024 8:42 PM EDT [address] [address] XRay Report Signed Patient: Shereen Taylor MR#: [id number] : 1990 Acct:[id number] Age/Sex: 34 / F ADM Date: 12/09/24 Loc: HO.ED Attending Dr: Ordering Physician: Generic ED Physician Date of Service: 12/09/24 Procedure(s): XR foot LT 2V Accession Number(s): [id number] cc: Generic ED Physician; Genevieve Gtz MD [...] in OV> 12/09/242039 DD/ 37 TD/TT: 12/09/242037 Lamination Inspector: Procedure Note Donotuseinterpreter, Image - 12/09/[address] [address] XRay Report Signed Patient: Danna Taylor#: [id number] : 1990Acct:[id number] Age/Sex: 34 / FADM Date: 12/09/24 Loc: HO.ED Attending Dr: Ordering Physician: Generic ED Physician Date of Service: 12/09/24 Procedure(s): XR foot LT 2V Accession Number(s): [id number] cc: Generic ED Physician; Genevieve Gtz MD [...] in OV> 12/09/242039 DD/ 37 TD/TT: 12/09/242037 Lamination Inspector: [facility] External Provider IMG XR PROCEDURES Final Result * Drug Toxicology Monitoring Base Panel, w/Confirmation, Oral Fluid (11/19/2024 12:00 AM EDT) Drug Tox Panel with Confirmation SEE NOTE [facility] Comment: Test Ordered Result Cutoff DRUG TOX MONITORING BASE PANEL,W/CONF,ORAL FLUID Amphetamines Negative 10 ng/mL Benzodiazepines Negative 0.50 ng/mL Cocaine Negative
--- OUTSIDE RECORDS SUMMARY | 2025-02-10 16:36 | XMS_ITS | Encounter Summary ---
Author Organization [facility] Prior to 12/28/[address] [place] [address] Care Team Providers Care Manager Mail Name Role Phone Chanda Nugent Primary Care Provider Unavailabl e Reason for Visit * Reason Onset Date Comments Homecare 04/26/2018 Encounter Details Date Type Department Care Team Description 04/26/2018 Telephone Vascular Surgery - [place] [address] [place] [address] Hayden Troncoso MD Homecare Social [...] - 04/26/2018 2:53 PM EST Marlyn, Clinical Display Coordinator called to inform that patient couldn't be seen, but will be seen tomorrow. documented in this encounter Plan of Treatment Not on file documented as of this encounter Visit Diagnoses Not on filedocumented in this encounter Care Teams Manager Mail Relationship Specialty Start Date End Date Chanda Nugent PCP - General Internal Medicine 01/10/18 documented as of this encounter
--- OUTSIDE RECORDS SUMMARY | 2025-02-10 16:36 | XMS_ITS | Encounter Summary ---
Author Organization [employer] Address [address] [facility] 7t [place] [address] Care Team Providers Care Assembler Type Bar And Segment Name Role Phone Genevieve Gtz MD Primary Care Pro vider Reason for Visit * Reason Onset Date Comments Med Refill 12/05/2023 Encounter Details Date Type Department Care Team ([facility] Contact Info) Description 12/05/2023 Telephone [facility] [address] [place] [address] Genevieve Gtz MD [address] [place], [place] [phone] Med Refill Social History Tobacco Use Types [...] tablet To be sent to: [facility]/pharmacy #[id number] [place] [address] documented in this encounter Plan of Treatment Upcoming Encounters Date Type Department Care Team (Late st Contact Info) Description 02/11/2025 2:45 PM EST Clinical Support [facility] [address] [place] [address] Paola Thurston, KIRIT [address] [place] [address] documented as of this encounter Goals Goal [...] documented as of this encounter Care Teams Assembler Type Bar And Segment Relationship Specialty Start Date End Date Genevieve Gtz MD [address] [place] [address] PCP - General Internal Medicine 10/12/22 documented as of this encounter
--- OUTSIDE RECORDS SUMMARY | 2025-02-10 16:36 | XMS_ITS | Encounter Summary ---
Author Organization [email or web address] Prior to 12/28/[address] [place] [address] Care Team Providers Care Pastry Mixer Name Role Phone Ed Nash MD Primary Care Provider Un available Community, Pcp Primary Care Provider Unavailabl e Community, Pcp Primary Care Provider Unavailabl e Chanda Nugent Primary Care Provider Unavailabl e Encounter Details Date Type Department Care Team Description 02/16/2016 Release of Information Medical Records [address] [place] [address] Abstract, Provider Social History Tobacco Use Types [...] on filedocumented in this encounter Care Teams Pastry Mixer Relationship Specialty Start Date End Date Ed Nash MD PCP - General Internal Medicine 11/11/15 Community, Pcp PCP - General Internal Medicine 07/27/16 08/21/17 Community, Pcp PCP - General Internal Medicine 08/22/17 01/09/18 Chanda Nugent PCP - General Internal Medicine 01/10/18 documented as of this encounter
--- OUTSIDE RECORDS SUMMARY | 2025-02-10 16:36 | XMS_ITS | Encounter Summary ---
Author Organization [employer] Address [address] [facility] 7t [place] [address] Care Team Providers Care Pill Coater Name Role Phone Genevieve Gtz MD Primary Care Pro vider Encounter Details Date Type Department Care Team ([facility] st Contact Info) Description 02/10/2025 Orders Only GENERIC EXTERNAL DATA [...] PM EST Clinical Support [facility] [address] [place] [address] Paola Thurston RN [address] [place] [address] Pending Results Name Type Priority Associated Diagnoses Date /Time VENOUS BLOOD GAS Lab Routine 02/11/20 1:05 PM EST documented as of this encounter [...] PROTHROMBIN TIME-INR Routine 02/10/2025 12:59 PM EST documented in this encounter Results * (ABNORMAL) High Sensitivity Troponin I (02/10/2025 3:26 PM EST) Pathologist [facility] TROPONIN I HIGH SENSITIVITY 87.2() <3.5 - 17.0 ng/L [facility] Comment:Critical value for t est(s): TROP Results called to and readback by: IMAN Person calling: LEONA Date: 02/10/25Time: 1600[facility] [place] high sensitivity Troponin-I results should beused in conjunction with other diagnostic information suchas ECG, clinical observations and information, and patientsymptoms to aid in the diagnosis of [place]. 02/10/2025 3:26 PM EST 02/10/2025 3:33 PM EST Generic External Data Provider LAB BLOOD ORDERAB LES Final Result Performing Organization Address [facility] Co de Phone Number [facility] [address] [place] [phone] * Lactic Acid (02/10/2025 1:00 PM EST) Lactic Acid 1.6 0.5 - 2.0 mmol/L [facility] 02/10/2025 1:00 PM EST 02/10/2025 1:06 PM EST Generic External Data Provider LAB BLOOD ORDERAB LES Final Result Performing Organization Address [facility] [[email or web address]] de Phone Number [facility] [address] [place] [phone] * (ABNORMAL) Prothrombin Time-INR (02/10/2025 12:59 PM EST) Prothrombin Time 14.3(H) 11.2 - 13.5 SEC [facility] INTERNATIONAL NORM RATIO 1.2(H) 0.9 - 1.1 [facility] Comment:INTERNATIONAL NORMAL IZED RATIO (INR) [...] 9 PM EST 02/10/2025 1:06 PM EST us Generic External Data Provider LAB BLOOD ORDERAB LES Final Result [facility] [address] [place] [phone] documented in this encounter Visit Diagnoses Not on filedocumented in this encounter Additional Health Concerns Assessment Noted Time PHQ-9 Depression Total Score: 0 10/23/19 24 2:23 PM EDT documented as of this encounter Care Teams Pill Coater Relationship Specialty Start Date End Date Genevieve Gtz MD [address] [place] [address] PCP - General Internal Medicine 10/12/22 documented as of this encounter
--- OUTSIDE RECORDS SUMMARY | 2025-02-10 16:36 | XMS_ITS | Encounter Summary ---
Author Organization [employer] Address [address] [facility] 7t [place] [address] Care Team Providers Care Suction Plate Carrier Cleaner Name Role Phone Genevieve Gtz MD Primary Care Pro vider Reason for Visit * Reason Onset Date Comments Med Refill 12/25/2024 Encounter Details Date Type Department Care Team ([facility] Contact Info) Description 12/25/2024 Telephone [facility] [address] [place] [address] Genevieve Gtz MD [address] [place], [place] [phone] Med Refill Social History Tobacco Use Types [...] immediate release tablet To be sent to: [facility]/pharmacy #[id number] [place] [address] documented in this encounter Plan of Treatment Upcoming Encounters Date Type Department Care Team (Late st Contact Info) Description 02/11/2025 2:45 PM EST Clinical Support [facility] [address] [place] [address] Paola Thurston, KIRIT [address] [place] [address] documented as of this encounter Goals Goal [...] documented as of this encounter Care Teams Suction Plate Carrier Cleaner Relationship Specialty Start Date End Date Genevieve Gtz MD [address] [place] [phone] PCP - General Internal Medicine 10/12/22 documented as of this encounter
--- OUTSIDE RECORDS SUMMARY | 2025-02-10 16:36 | XMS_ITS | Encounter Summary ---
Author Organization [facility] Prior to 12/28/[address] [place] [address] Care Team Providers Care Hat Lining Paster Name Role Phone Ed Nash MD Primary Care Provider Un available Community, Pcp Primary Care Provider Unavailabl e Community, Pcp Primary Care Provider Unavailabl e Chanda Nugent Primary Care Provider Unavailabl e Encounter Details Date Type Department Care Team Description 07/04/2016 Hospital Medical Records [address] [place] [address] Regino Cook MD Social History Tobacco Use [...] on filedocumented in this encounter Care Teams Hat Lining Paster Relationship Specialty Start Date End Date Ed Nash MD PCP - General Internal Medicine 11/11/15 Community, Pcp PCP - General Internal Medicine 07/27/16 08/21/17 Community, Pcp PCP - General Internal Medicine 08/22/17 01/09/18 Chanda Nugent PCP - General Internal Medicine 01/10/18 documented as of this encounter
--- OUTSIDE RECORDS SUMMARY | 2025-02-10 16:36 | XMS_ITS | Encounter Summary ---
Author Organization [employer] Address [address] [place] [address] 7t [place] [address] Care Team Providers Care Fish And Wildlife Warden Name Role Phone Carolina Hsu Primary Care Provider Genevieve Wilson MD Primary Care Pro vider Reason for Visit * Reason Onset Date Comments Med Refill 07/28/2022 Encounter Details Date Type Department Care Team ([facility] st Contact Info) Description 07/28/2022 Telephone [facility] MEDICINE [address] [place] [phone] Carolina Hsu FNP Med Refill Social History [...] Description 02/11/2025 2:45 PM EST Clinical Support [facility] [address] [place] [address] Paola Thurston, KIRIT [address] [place] [address] documented as of this encounter Visit Diagnoses Diagnosis Acute on chronic heart failure, unspecified heart failure type (HCC)- Primary Benign essential hypertension Essential hypertension, benign documented in this encounter Care Teams Fish And Wildlife Warden Relationship Specialty Start Date End Date Carolina Hsu FNP PCP - General Family Medicine 01/16/22 10/11/22 Genevieve Gtz MD [address] [place] [phone] PCP - General Internal Medicine 10/12/22 documented as of this encounter
--- OUTSIDE RECORDS SUMMARY | 2025-02-10 16:36 | XMS_ITS | Encounter Summary ---
Author Organization [facility] Address [address] [place] [address] Phone Care Team Providers Care Property Management Accountant Name Role Phone Genevieve Gtz MD Primary Care Pro vider Encounter Details Date Type Department Care Team ([facility] Contact Info) Description 02/06/2025 Episode Documentatio n Update [facility] [address] [place] [phone] Social History Tobacco Use Types Packs/Day Years [...] Upcoming Encounters Date Type Department Care Team ([facility] Contact Info) Description 02/11/2025 3:00 AM EST Appointment [facility] [address] [place] [phone] Adriana Lopez, PRISON LIBRARIAN [address] [place] [address] [email or web address] 02/13/2025 4:30 AM EST Appointment [facility] [address] [place] [phone] Araceli Alvarez, RN [address] [place] [address] [email or web address] 02/16/2025 12:30 AM EST Appointment [facility] [address] [place] [phone] Araceli Alvarez, KIRIT [address] [place] [address] [email or web address] 02/18/2025 4:30 AM EST Appointment [facility] [address] [place] [phone] Araceli Alvarez, RN [address] [place] [address] [email or web address] 02/20/2025 2:30 AM EST Appointment [facility] [address] [place] [phone] Araceli Alvarez, RN [address] [place] [address] [email or web address] 02/23/2025 1:00 AM EST Appointment [facility] [address] [place] [address] Araceli Alvarez, RN [address] [place] [address] [email or web address] 02/25/2025 4:00 AM EST Appointment [facility] [address] [place] [phone] Araceli Alvarez, RN [address] [place] [address] [email or web address] 02/27/2025 3:00 AM EST Appointment [facility] [address] [place] [phone] Araceli Alvarez, KIRIT [address] [place] [address] [email or web address] 03/02/2025 2:00 AM EST Appointment [facility] [address] [place] [phone] Araceli Alvarez RN [address] [place] [address] [email or web address] 03/04/2025 3:00 AM EST Appointment [facility] [address] [place] [phone] Araceli Alvarez RN [address] [place] [address] [email or web address] 03/06/2025 2:00 AM EST Appointment [facility] [address] [place] [phone] Araceli Alvarez, KIRIT [address] [place] [address] [email or web address] 03/09/2025 2:00 AM EST Appointment [facility] [address] [place] [phone] Araceli Alvarez, KIRIT [address] [place] [address] [email or web address] documented as of this encounter Visit Diagnoses Not on filedocumented in this encounter Care Teams Property Management Accountant Relationship Specialty Start Date End Date Genevieve Gtz MD [address] [place] [address] PCP - General Internal Medicine 11/06/24 documented as of this encounter Additional Source Comments The information contained in this document represents components of the legal health record. It is not the complete legal health record.[facility]
--- OUTSIDE RECORDS SUMMARY | 2025-02-10 16:36 | XMS_ITS | Encounter Summary ---
Author Organization [employer] Address [address] [facility] 7t [place] [address] Care Team Providers Care Museum Technician Name Role Phone Genevieve Gtz MD Primary Care Pro vider Reason for Visit * Reason Comments Med Refill Encounter Details Date Type Department Care Team (Late st Contact Info) Description 08/26/2023 Refill [facility] [address] [place], [place] [phone] Genevieve Gtz MD [address] [place], [place] [phone] Benign essential hypertension Social History Tobacco Use [...] [facility] [address] [place] [address] Paola Thurston, KIRIT [address] [place] [address] documented as of this encounter Goals Goal [...] documented as of this encounter Care Teams Museum Technician Relationship Specialty Start Date End Date Genevieve Gtz MD [address] [place] [address] PCP - General Internal Medicine 10/12/22 documented as of this encounter
--- OUTSIDE RECORDS SUMMARY | 2025-02-10 16:36 | XMS_ITS | Encounter Summary ---
Author Organization [employer] Address [address] [facility] 7t [place] [address] Care Team Providers Care Consumer Loan Specialist Name Role Phone Genevieve Gtz MD Primary Care Pro vider Reason for Visit * Reason Onset Date Comments Med Refill 12/19/2023 Encounter Details Date Type Department Care Team ([facility] Contact Info) Description 12/19/2023 Telephone [facility] MEDICINE [address] [place] [address] Genevieve Gtz MD [address] [place], [place] [phone] Med Refill Social History Tobacco Use Types [...] immediate release tablet To be sent to: [facility]/pharmacy #[id number] [place] [address] documented in this encounter Plan of Treatment Upcoming Encounters Date Type Department Care Team (Late st Contact Info) Description 02/11/2025 2:45 PM EST Clinical Support [facility] MED & PEDS [address] [place] [address] Paola Thurston, KIRIT [address] [place] [address] documented as of this encounter Goals Goal [...] documented as of this encounter Care Teams Consumer Loan Specialist Relationship Specialty Start Date End Date Genevieve Gtz MD [address] [place] [address] PCP - General Internal Medicine 10/12/22 documented as of this encounter
--- OUTSIDE RECORDS SUMMARY | 2025-02-10 16:36 | XMS_ITS | Encounter Summary ---
Author Organization [employer] Address [address] [facility] 7t [place] [address] Care Team Providers Care Instrument Technician Apprentice Name Role Phone Genevieve Gtz MD Primary Care Pro vider Encounter Details Date Type Department Care Team ([facility] st Contact Info) Description 02/09/2025 Telephone [facility]EDS [address] [place], [place] [phone] Paola Thurston, RN [address] [place] [address] Social History Tobacco Use Types Packs/Day Years [...] t he electric, gas, oil or water [employer] threatened to shut off services in your [...] Telephone Encounter - Paola Thurston RN - 02/09/2025 11:02 AM EST Pt calling for a refill again. Are you ok with refilling regular prescription oxycodone 5mg? Last refilled 01/15 qty 42. Last refill from an outside provider Oxycontin Er 10Mg qty 20 and Oxycodone Hcl (Ir) 10 Mg qty 24 on 02/01/25, documented in this encounter Plan of Treatment Upcoming Encounters Date Type Department Care Team (Late st Contact Info) Description 02/11/2025 2:45 PM EST Clinical Support [facility]EDS [address] [place] [address] Paola Thurston RN [address] [place] [address] documented as of this encounter Goals Goal [...] documented as of this encounter Care Teams Instrument Technician Apprentice Relationship Specialty Start Date End Date Genevieve Gtz MD [address] [place] [address] PCP - General Internal Medicine 10/12/22 documented as of this encounter
--- OUTSIDE RECORDS SUMMARY | 2025-02-10 16:36 | XMS_ITS | Encounter Summary ---
Author Organization [facility] Address [address] [facility] [address] [place] [address] Phone Care Team Providers Care Hospital Food Service Worker Name Role Phone Genevieve Gtz MD Primary Care Pro vider Encounter Details Date Type Department Care Team ([facility] Contact Info) Description 02/02/2025 Home Health Resumption of Care Planning [facility] [address] [place] [phone] Shraddha Jefferson RN [address] [place] [address] [email or web address] Social History Tobacco Use Types Packs/Day Years [...] Description 02/11/2025 3:00 AM EST Appointment [facility] [address] [place] [phone] Adriana Lopez LPN [address] [place] [address] [email or web address] 02/13/2025 4:30 AM EST Appointment [facility] [address] [place] [phone] Araceli Alvarez, RN [address] [place] [address] [email or web address] 02/16/2025 12:30 AM EST Appointment [facility] [address] [place] [phone] Araceli Alvarez, KIRIT [address] [place] [address] [email or web address] 02/18/2025 4:30 AM EST Appointment [facility] [address] [place] [phone] Araceli Alvarez, RN [address] [place] [address] [email or web address] 02/20/2025 2:30 AM EST Appointment [facility] [address] [place] [phone] Araceli Alvarez, RN [address] [place] [address] [email or web address] 02/23/2025 1:00 AM EST Appointment [facility] [address] [place] [phone] Araceli Alvarez, RN [address] [place] [address] [email or web address] 02/25/2025 4:00 AM EST Appointment [facility] [address] [place] [phone] Araceli Alvarez, KIRIT [address] [place] [address] [email or web address] 02/27/2025 3:00 AM EST Appointment [facility] [address] [place] [phone] Araceli Alvarez, KIRIT [address] [place] [address] [email or web address] 03/02/2025 2:00 AM EST Appointment [facility] [address] [place] [phone] Araceli Alvarez, KIRIT [address] [place] [address] [email or web address] 03/04/2025 3:00 AM EST Appointment [facility] [address] [place] [phone] Araceli Alvarez, KIRIT [address] [place] [address] [email or web address] 03/06/2025 2:00 AM EST Appointment [facility] [address] [place] [phone] Araceli Alvarez, KIRIT [address] [place] [address] [email or web address] 03/09/2025 2:00 AM EST Appointment [facility] [address] [place] [phone] Araceli Alvarez, KIRIT [address] [place] [address] [email or web address] documented as of this encounter Visit Diagnoses Not on filedocumented in this encounter Care Teams Hospital Food Service Worker Relationship Specialty Start Date End Date Genevieve Gtz MD [address] [place] [phone] PCP - General Internal Medicine 11/06/24 documented as of this encounter Additional Source Comments The information contained in this document represents components of the legal health record. It is not the complete legal health record.[facility]
--- OUTSIDE RECORDS SUMMARY | 2025-02-10 16:37 | XMS_ITS | Encounter Summary ---
Author Organization [facility] Prior to 12/28/2023 Address [address] [place] [address] Care Team Providers Care Cardiovascular Specialist Name Role Phone Melvi, Pcp Primary Care Provider Chanda Thapa Primary Care Provider Mindy mercado Encounter Details Date Type Department Care Team Description 11/29/2017 Hospital Medical Records [address] [place] [address] Hayden Troncoso MD Social History Tobacco Use [...] on filedocumented in this encounter Care Teams Cardiovascular Specialist Relationship Specialty Start Date End Date Melvi, Pcp PCP - General Internal Medicine 08/22/17 01/09/18 Chanda Nugent PCP - General Internal Medicine 01/10/18 documented as of this encounter
--- OUTSIDE RECORDS SUMMARY | 2025-02-10 16:37 | XMS_ITS | Encounter Summary ---
Author Organization [employer] [facility] Prior to 12/28/[address] [place] [address] Care Team Providers Care Glass Science Engineer Name Role Phone Chanda Nugent Primary Care Provider Unavailcrow mercado Encounter Details Date Type Department Care Team Description 02/26/2018 Hospital Medical Records [address] [place] [address] Hayden Troncoso MD Social History Tobacco Use [...] on filedocumented in this encounter Care Teams Glass Science Engineer Relationship Specialty Start Date End Date Chanda Nugent PCP - General Internal Medicine 01/10/18 documented as of this encounter
--- OUTSIDE RECORDS SUMMARY | 2025-02-10 16:37 | XMS_ITS | Clinical Summary ---
Author Organization [facility] Address [address] [place] [address] Care Team Providers Care Bartacker Name Role Phone Unavailable Primary Care Provider [...] 0.79 S/CO ratio 01/10/2022 10:39 AM EST [facility] Hepatitis C Antibody Interpretation Nonreactive Nonreactive 01/10/2022 10:39 AM EST [facility] Blood specimen (specimen) (Plasma/Serum) 01/09/2022 8:34 AM EST 01/09/2022 9:21 AM EST us Jaziel B Post MD LAB BLOOD ORDERABLES Final Resu lt HOSPITAL LAB [facility] [address] [place] [address] * HIV 1/2 Ag/Ab CMIA Reflex to Confirmation (01/09/2022 8:34 AM EST) HIV 1/2 Ag/Ab CMIA Nonreactive Nonreactive 01/10/2022 10:39 AM EST [facility] Comment: Results show no evidence of infection [...] Final Resu lt HOSPITAL LAB [facility] [address] [place] [address] from Last 3 Months or Most Recently Relevant to Health Maintenance Insurance [facility] Member Subscriber Plan / Payer ( fective 2022-Present) Name:Shereen Taylor Relation to Subscriber:Self Name:Shereen Taylor Payer ID:Not on file Group ID:Not on file Type:Not on file Address: [address] [id number] MISC MGD MEDICARE OUT OF NETWORK Advance Directives * Full Code (Latest Code Status on File) Date Activated Date Inactivated Comments 01/06/2022 5:00 AM Question Answer Comments Decision Thoroughly Discussed with: Unable to Ilda musa
--- OUTSIDE RECORDS SUMMARY | 2025-02-10 16:37 | XMS_ITS | Clinical Summary ---
Author Organization 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 Name Role Phone Genevieve Gtz MD [...] Encounters Date Type Department Care Team Description 02/09/2025 11:00 AM EST Home Care Visit [facility] [address] [place] [phone] Araceli Alvarez, KIRIT SN HOME VISIT 02/06/2025 11:00 AM EST Home [facility] Visit [facility] [address] [place] [phone] Araceli Alvarez, KIRIT SN HOME VISIT 02/06/2025 Episode Documentation Update [facility] [address] [place] [phone] 02/04/2025 12:00 PM EST [facility] Visit [facility] [address] [place] [phone] Araceli Alvarez, KIRIT SN OASIS RESUMPTION OF CARE (LATOYA) 02/02/2025 Home Health Resumption of Care Planning [facility] [address] [place] [phone] Shraddha Jefferson RN 01/15/2025 [facility] [address] [place] [phone] Emi Sommer, RN SN OASIS TRANSFER 01/12/2025 3:30 PM EST Home Care Visit [facility] [address] [place] [address] Angie Bhatt, PT TELEPHONE ENCOUNTER 01/12/2025 Episode Documentation Update [facility] [address] [place] [address] 01/10/2025 12:30 PM EST Home Care Visit [facility] [address] [place] [address] Emi Sommer, RN SN OASIS START OF CARE (SOC) 01/10/2025 Plan of Care Documentation [facility] [address] [place] [address] 12/22/2024 Orders Only [facility] [address] [place] [address] Homehealth, Kirill Lindsay MD 12/22/2024 Home Care Visit [facility] [address] [place] [address] Angela Foster RN NON ADMIT HOME HEALTH VISIT 12/21/2024 Home Care Visit [facility] [address] [place] [address] Becca Saenz, RN CASE COMMUNICATION 12/20/2024 Home Care Visit [facility] [address] [place] [address] Freida Mohan, RN CASE COMMUNICATION 12/20/2024 Home Care Visit [facility] [address] [place] [address] Becca Saenz, RN CASE COMMUNICATION 12/19/2024 Home Care Visit [facility] [address] [place] [address] Angela Foster RN CASE COMMUNICATION 12/15/2024 Orders Only [facility] [address] [place], [place] [phone] Homehealth, Interface Provider, 11/16/2024 Home Care Visit [facility] [address] [place], [place] [phone] Becca Saenz, KIRIT NON ADMIT HOME HEALTH VISIT 11/14/2024 Home Care Visit [facility] [address] [place], [place] [phone] Angela Foster RN CASE COMMUNICATION from Last 3 Months Social [...] Info) Description 02/11/2025 3:00 AM EST Appointment [facility] [address] [place] [phone] Adriana Lopez LPN [address] [place] [address] 02/13/2025 4:30 AM EST Appointment [facility] [address] [place] [phone] Araceli Alvarez, RN [address] [place] [address] 02/16/2025 12:30 AM EST Appointment [facility] [address] [place] [phone] Araceli Alvarez, KIRIT [address] [place] [address] 02/18/2025 4:30 AM EST Appointment [facility] [address] [place] [phone] Araceli Alvarez, RN [address] [place] [address] 02/20/2025 2:30 AM EST Appointment [facility] [address] [place] [phone] Araceli Alvarez, RN [address] [place] [address] 02/23/2025 1:00 AM EST Appointment [facility] [address] [place] [phone] Araceli Alvarez, RN [address] [place] [address] 02/25/2025 4:00 AM EST Appointment [facility] [address] [place] [phone] Araceli Alvarez, RN [address] [place] [address] 02/27/2025 3:00 AM EST Appointment [facility] [address] [place] [phone] Araceli Alvarez, KIRIT [address] [place] [address] 03/02/2025 2:00 AM EST Appointment [facility] [address] [place] [phone] Araceli Alvarez, KIRIT [address] [place] [address] 03/04/2025 3:00 AM EST Appointment [facility] [address] [place] [phone] Araceli Alvarez RN [address] [place] [address] 03/06/2025 2:00 AM EST Appointment [facility] [address] [place] [phone] Araceli Alvarez, KIRIT [address] [place] [address] 03/09/2025 2:00 AM EST Appointment [facility] [address] [place] [phone] Araceli Alvarez RN [address] [place] [address] Medical Devices Not on file Insurance [facility] ONE CARE MEDICARE REPLACEMENT CARE MEDICARE REPLACEMENT CARE MEDICARE REPLACEMENT CARE MEDIC[place] [address] [place] [address] [address] [place] [address] [place] [address] CARE MEDICARE REPLACEMENT Care Teams Tank Truck Driver Relationship Specialty Start Date End Date Genevieve Gtz MD [address] [place] [address] PCP - General Internal Medicine 11/06/24 Additional Source Comments The information contained in this document represents components of the legal health record. It is not the complete legal health record.[facility]
[2025-02-10] MEDS: iohexoL 350 MG/ML 100 ML INFUS..BTL IV (16:46)
--- NOTE | 2025-02-10 19:40 | PHA.MEDREC ---
Pharmacy Consult ? Medication Reconciliation Pharmacy has completed the medication reconciliation.
[2025-02-10] MEDS: Lidocaine HCl 1%/Epi 1:100,000 10 ML VIAL SUBCUT (19:57)
--- NOTE | 2025-02-10 20:28 | P.HPGS_ITS ---
History of Present Illness History of Present Illness Date of Service: 02/10/25 Chief complaint: chest pain Narrative: Shereen Taylor is a 34 year old female End-stage renal disease on dialysis poorly-controlled diabetic who recently underwent left below-knee amputation with some delayed healing with the incision flap site. She has been following with Dr. Rajput for this. Today she went to dialysis and was having some significant chest pain almost as soon as she got there. [facility]. No significant cardiac issue was noted. She was also complaining of increased pain in her left BKA stump area and there was some opening along the incision site. Some mild erythema. CT scan of the stump area was carried out which showed a 4 x 4 x 3 cm collection of fluid question abscess. Patient's white count was normal. She is still is very tender in this area. Question of whether she had a fever earlier. She is afebrile here. Notably her hematocrit hemoglobin dropped from earlier in January 27 now from in the 32 range to 24 per hematocrit. Patient denies any trauma to the stump Review of Systems Review of Systems: Yes all other systems are reviewed and are negative [facility] Past Medical History Medical History Central pontine myelinolysis ESRD on hemodialysis End-stage renal disease (ESRD) Cardiomyopathy Cerebral microvascular disease Steroid-induced hyperglycemia Relapsing remitting multiple sclerosis Renal failure Multiple sclerosis Cerebral infarction Hyperkalemia ESRD on dialysis Hypoxia End stage renal disease on dialysis Chronic ulcer of right foot due to diabetes mellitus Chronic ulcer of left foot due to diabetes mellitus DM foot ulcer Hypotonic neurogenic bladder Diabetic polyneuropathy Hypertensive emergency Decompensated heart failure Renal failure Hypertension, uncontrolled Medical non-compliance Pericarditis Unspecified hypertension, condition or complication Metabolic acidosis Gastroparesis End stage chronic kidney disease Chronic kidney disease Anemia Plantar ulcer of left foot MDD (major depressive disorder) CKD (chronic kidney disease) Hypertension Vomiting Chronic pain Non-compliance with renal dialysis Diabetic foot ulcer associated with type 2 diabetes mellitus HFrEF (heart failure with reduced ejection fraction) delivery delivered Anemia in chronic kidney disease (CKD) CKD (chronic kidney disease) Abnormal finding on echocardiogram Elevated troponin Acute worsening of stage 3 chronic kidney disease Generalized edema Sepsis Cellulitis Pleural effusion Atypical chest pain Bone infection PAD (peripheral artery disease) Cellulitis and abscess of foot Osteomyelitis Asthma Depression with anxiety Diabetic retinopathy Blind right eye Diabetes Back pain Family History Family History Mother Coronary artery disease Myocardial infarction Stroke Diabetes mellitus Father Myocardial infarction Surgical History Surgical History Below-knee amputation of left lower extremity (~01/05/25) Tubal ligation status Previous section Hx laparoscopic cholecystectomy Hx of surgical procedure (~09/11/23) 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 Social History Social History Household Members: Family Household Members Other:: sister, brother, [id number] Housing: Apartment Housing Other:: Apartment, 1st floor Are you a primary child care education coordinator to a significant other at home: No Do you presently have visiting nurse or other home services: No Alcohol intake: never Comment: patient refusing bed alarm Patient Tobacco Use Status: Never used Tobacco e-Cigarette/Vaping Use: Never Used Second Hand Smoke Exposure: No Advance Directives: Yes Advance Directives on File: Yes Advance Directives Date on File: 09/04/23 service: No Current occupational status: unemployed and disabled Gender identity: Female Meds Allergies Allergy/AdvReac Type Severity Reaction Status Date / Time gabapentin Allergy Severe Facial Verified 02/10/25 12:33 Swelling tramadol Allergy Severe Facial Verified 02/10/25 12:33 Swelling azithromycin (From Zithromax) Allergy Intermediate Hives Verified 02/10/25 12:33 morphine (MORPHINE) Allergy Intermediate Itching Verified 02/10/25 12:33 vancomycin AdvReac Intermediate Itching Verified 02/10/25 12:33 Active Medications: Current Medications Acetaminophen (Acetaminophen 325 Mg Tablet) 650 mg PO Q6H PRN PRN Reason: Pain, Mild 1-3,fever,headache Ondansetron HCl (Ondansetron Hcl 4 Mg/2 Ml Vial) 4 mg IVPUSH Q8H PRN PRN Reason: Nausea and Vomiting Sodium Chloride (0.9 % Sodium Chloride Flush 3 Ml Syringe) [facility] ?[facility]ication ?Instructions ?Recorded ?Confirmed ?Last Taken ?Type albuterol sulfate 90 mcg/actuation 2 puff inhalation Q 6H PRN wheezing 01/15/24 02/10/25 12/09/24 History aerosol inhaler (Ventolin HFA) nitroglycerin 0.4 mg sublingual 0.4 mg sublingual D IRECTED PRN 01/15/24 02/10/25 12/09/24 History tablet Angina calcium carbonate (Tums) 200 mg PO TIDWM PRN Acid Ref lux 07/03/24 02/10/25 12/09/24 History levetiracetam 500 mg tablet 1,500 mg PO BID 02/02/25 1 04/13/24 02/01/25 History (Keppra) lidocaine 4 % topical patch 1 patch topical DAILY PRN Pain 02/02/25 02/10/25 Unknown History polyethylene glycol 3350 17 17 g PO DAILY PRN Constipa tion 02/08/25 02/10/25 Unknown History gram/dose oral powder (Miralax) prednisone 10 mg tablet 10 mg PO DAILY 02/08/2501/2602/07/25 History acetaminophen 325 mg tablet 975 mg PO Q6H PRN mild jamar n 02/10/25 02/10/25 Unknown History insulin lispro 100 unit/mL 1 sliding scale dose subcut QIDACHS 02/10/25 02/10/25 Unknown History subcutaneous pen (Admelog SoloStar U-100 Insulin lispro) sodium zirconium cyclosilicate 10 10 g PO MOWEFR 02/1002/10/25 Unknown History gram oral powder packet (Lokelma) Physical Exam Vital Signs: Vital Signs: Last Vital Signs Temp 98.3 F 02/10/25 20:00 Pulse 89 02/10/25 20:00 Resp 12 02/10/25 20:00 BP 165/88 H 02/10/25 20:00 Pulse Ox 99 02/10/25 20:00 O2 Del Method Nasal Cannula 02/10/25 20:00 O2 Flow Rate 2 02/10/25 20:00 Oxygen Flow Rate 2 02/10/25 12:33 BMI result Body Mass Index 32.0 Const: General: cooperative and acute distress moderate Cardio: Rate: regular rate Skin: Other: left BKA stump the lateral aspect has some opening with separation of the skin with some underlying fatty tissue which looks relatively clean and healthy. There some bogginess at the base of the stump and she is most tender here. There is no true erythema in this area but maybe a little more reactive along the incision site. She does complain of tenderness and pulls back with palpation of the stump. The skin and tissue looks very healthy and viable Results Results Labs: Short CBC 02/10/25 Range/Units 13:01 WBC 6.4 (4.8-10.8) X10*3/uL Hgb 8.1 L (12.0-16.0) g/dl Hct 24.2 L (37.0-47.0) % Plt Count 166 D (160-400) X10*3/uL BMP 02/10/25 12:59 Sodium 139 Potassium 5.2 H Chloride 101 Carbon Dioxide 23 BUN 68 H Creatinine 6.86 H* Calcium 7.0 L D Liver Function 02/10/25 Range/Units 12:59 Total Bilirubin 0.6 (0.0-1.0) mg/dL AST 36 H (5-31) U/L ALT 21 (0-31) U/L Alkaline Phosphatase 198 H (39-117) U/L Albumin 3.3 L (3.5-5.0) g/dL Additional studies: Signed Patient: Shereen Taylor MR#: [id number] : 1990 Acct:[id number] Age/Sex: 34 / F ADM Date: 02/10/25 Loc: .ED Attending Dr: Ordering Physician: Dee Dee Sánchez DO Date of Service: 02/10/25 Procedure(s): CT femur LT w IV con Accession Number(s): [id number] cc: Dee Dee Sánchez DO; Genevieve Gtz MD~ Report Number: [id number]: Total DLP = 487.00 mGy-cm Reason for Exam: infection EXAMINATION: CT FEMUR WITH IV CONTRAST LEFT HISTORY: infection COMPARISON: Previous x-rays February 02, 2025 TECHNIQUE: Helical CT scan of the left lower extremity following 85 mL of Omnipaque 350 IV contrast. Sagittal and coronal reconstructions on the technologist work station were performed. This CT exam was performed with one or more of the following dose reduction techniques: automated exposure control, adjustment of the mA and/or kV according to patient size, use of iterative reconstruction technique. DLP: 487 mGy-cm Findings: There is a below-knee amputation. There is a multiloculated thick walled fluid collection seen adjacent to the resected distal tibia measuring 4.5 x 4.7 x 2.8 cm. There is surrounding fat stranding and mild skin thickening. Appearance is suggestive of a small abscess. This abuts the resected tibial shaft. No bone destruction is seen and the surgical margin appears sharp. No definite evidence of osteomyelitis is seen. No fracture or dislocation. The hip and knee joints are normal. There is severe atherosclerotic disease. There is trace ascites in the pelvis. There is mild diverticulosis of the colon.. CT/CT femur LT w IV con Impression: 4.5 x 4.7 x 2.8 cm multiloculated thick-walled fluid collection adjacent to the remaining distal tibial shaft. This may represent an abscess. Surgical amputation margin is sharp without evidence of bone destruction and no evidence of osteomyelitis is seen. Severe atherosclerotic disease. Electronically signed by: Ivette Crystal MD 02/10/2025 05:24 PM [facility] Dictated By: Ivette Crystal MD Signed By: <Electronically signed by Ivette Crystal MD in OV> 02/10/25 1724 DD/ 1641 TD/TT: 02/10/25 1659 Interactive Marketing Strategist: TANNER Assessment and Plan (1) Hematoma: Status: Acute Plan 34-year-old female complex past history with end-stage renal disease on dialysis poorly-controlled diabetic recent left BKA coming in with more pain in her below-knee amputation area in addition to chest pain. Medical team we will be following for the issues around her cardiac kidneys etc.. Today with the examination of her stump area needle aspiration of this collection area revealed old blood no significant purulent material. Plan to do dressings and cover with Izaiah bandage. If still complaining of pain may get directly visualize ultrasound-guided drainage. white count is normal and no true purulent material drained we will re-evaluate tomorrow can give renal dose Zosyn as per medical team Quality Stroke Does the patient have a stroke diagnosis?: No VTE Prior VTE?: No VTE Risk Level:: Medical - low VTE Device Contraindication: N/A - Device Ordered VTE Drug Contraindication: Treatment Not Indicated Procedures Date of Service Date of Service: 02/10/25 Abscess I/D Consent for Procedure: Elective - informed consent obtained Side (if applicable): left Anesthetic used: with epi Technique: needle aspiration Amount of fluid (mL): 10 Irrigation: No Additional comments: Old bloody dark fluid removed
--- NOTE | 2025-02-10 20:45 | PC.NURSE ---
nurse to nurse report given to Casandra BETH. pt being transported in stretcher to [facility] by transport team. pt in no notable distress.
[2025-02-11] VITALS (7 sets, daily range): BP systolic 104–198; BP diastolic 55–115; PULSE 81–112; RESP 14–24; TEMP 36.3–36.7; O2SAT 92–97; BMI 32.0
--- NOTE | 2025-02-11 00:14 | PC.NURSE ---
Notified Dr. Joseph regarding pt not having Tele order due to increase K and trop, and being on dialysis. ordered changed. pt transported by to Main ER
--- NOTE | 2025-02-11 00:19 | P.CONHOSP_ITS ---
History of Present Illness Data of Consult Service Date: 02/11/25 Requesting physician: Geraldine Celestin Primary Care Provider: Genevieve Casillas MD HPI Reason for consult: medical management Patient is a 34-year-old female with past medical history ESRD on dialysis TTS- nonoliguric, nonanuric, Anemia secondary to ESRD, IDDM II with diabetic retinopathy and blindness, chronic right foot wound, left BKA (Jan [address] Rajput), HTN, PAD, hx c diff, anxiety, depression, recent dx of PE on eliquis, status epilecticus, MS, CVA, Sepsis/Bacteremia/ hx of central line infection, admitted by general surgery for hematoma vs abscess L stump. I&D was performed in the ED which showed old blood, no purulent material. Pt may require US guided drainage if pain is persistnet. she initially reported to the ED due to chest pain during dialysis, which she was unable to complete. her cardiac w/u was unremarkable. she currently has no compliants aside from pain in the L stump since the I+D. Review of Systems 2 Constitutional: Constitutional: Denies body ache(s), Denies chills, Denies fatigue, Denies fever(s) and Denies headache(s) Eyes: Eyes: Denies change in vision ENT: Denies headache(s) and Denies nasal congestion Cardiovascular: Cardiovascular: Denies rapid heart rate, Denies lightheadedness and Denies dyspnea Respiratory: Respiratory: Denies chest congestion, Denies cough, Denies dyspnea and Denies wheezing Gastrointestinal: Gastrointestinal: Denies abdominal pain, Denies nausea and Denies vomiting Genitourinary: Genitourinary: Denies dysuria Musculoskeletal: Musculoskeletal: Denies myalgias Integumentary/Breasts: Skin/Breast: Reports as per HPI Neurologic: Denies confusion and Denies headache(s) Psychiatric: Psychiatric: Denies confusion Endocrine: Endocrine: Denies fatigue Hematologic/Lymphatic: Hematologic/Lymphatic: Denies easy bruising Allergic/Immunologic: Allergic/Immunologic: Denies wheezing [facility] Medical History End-stage renal disease (ESRD) Type II diabetes mellitus Severe sepsis Multiple sclerosis exacerbation Multiple sclerosis Central pontine myelinolysis ESRD on hemodialysis End-stage renal disease (ESRD) Cardiomyopathy Cerebral microvascular disease Steroid-induced hyperglycemia Relapsing remitting multiple sclerosis Renal failure Multiple sclerosis Cerebral infarction Hyperkalemia ESRD on dialysis Hypoxia End stage renal disease on dialysis Chronic ulcer of right foot due to diabetes mellitus Chronic ulcer of left foot due to diabetes mellitus DM foot ulcer Hypotonic neurogenic bladder Diabetic polyneuropathy Hypertensive emergency Decompensated heart failure Renal failure Hypertension, uncontrolled Medical non-compliance Pericarditis Unspecified hypertension, condition or complication Metabolic acidosis Gastroparesis End stage chronic kidney disease Chronic kidney disease Anemia Plantar ulcer of left foot MDD (major depressive disorder) CKD (chronic kidney disease) Hypertension Vomiting Chronic pain Non-compliance with renal dialysis Diabetic foot ulcer associated with type 2 diabetes mellitus HFrEF (heart failure with reduced ejection fraction) delivery delivered Anemia in chronic kidney disease (CKD) CKD (chronic kidney disease) Abnormal finding on echocardiogram Elevated troponin Acute worsening of stage 3 chronic kidney disease Generalized edema Sepsis Cellulitis Pleural effusion Atypical chest pain Bone infection PAD (peripheral artery disease) Cellulitis and abscess of foot Osteomyelitis Asthma Depression with anxiety Diabetic retinopathy Blind right eye Diabetes Back pain Family History Mother Coronary artery disease Myocardial infarction Stroke Diabetes mellitus Father Myocardial infarction Surgical History Status post below-knee amputation of left lower extremity Below-knee amputation of left lower extremity (~01/05/25) Tubal ligation status Previous section Hx laparoscopic cholecystectomy Hx of surgical procedure (~09/11/23) 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 Social History Household Members: Family Household Members Other:: sister, brother, [id number] Housing: Apartment Housing Other:: Apartment, 1st floor Are you a primary residential care officer to a significant other at home: No Do you presently have visiting nurse or other home services: No Alcohol intake: never Comment: patient refusing bed alarm Patient Tobacco Use Status: Never used Tobacco e-Cigarette/Vaping Use: Never Used Second Hand Smoke Exposure: No Advance Directives: Yes Advance Directives on File: Yes Advance Directives Date on File: 09/04/23 service: No Current occupational status: unemployed and disabled Gender identity: Female Meds Allergies Allergy/AdvReac Type Severity Reaction Status Date / Time gabapentin Allergy Severe Facial Verified 02/10/25 12:33 Swelling tramadol Allergy Severe Facial Verified 02/10/25 12:33 Swelling azithromycin (From Zithromax) Allergy Intermediate Hives Verified 02/10/25 12:33 morphine (MORPHINE) Allergy Intermediate Itching Verified 02/10/25 12:33 vancomycin AdvReac Intermediate Itching Verified 02/10/25 12:33 Active Medications: Current Medications Acetaminophen (Acetaminophen 325 Mg Tablet) 650 mg PO Q6H PRN PRN Reason: Pain, Mild 1-3,fever,headache Albuterol Sulfate (Albuterol Sulfate 90 Mcg 8 Gm Inhaler) 2 puff INHALE Q6H PRN PRN Reason: Wheezing Amlodipine Besylate (Amlodipine Besylate 2.5 Mg Tablet) 7.5 mg PO BEDTIME [facility]; Protocol Apixaban (Apixaban 2.5 Mg Tablet) 2.5 mg PO BID [facility] Bisacodyl (Bisacodyl 5 Mg Tablet.Dr) 10 mg PO BEDTIME PRN PRN Reason: Constipation Carvedilol (Carvedilol 12.5 Mg Tablet) 12.5 mg PO BID [facility]; Protocol Dextrose (Dextrose 50 % 25 Gm/50 Ml Syringe) 25 gm IVPUSH Q15M PRN; Protocol PRN Reason: per Hypoglycemia Standing Ord. Diphenhydramine HCl (Diphenhydramine Hcl 50 Mg/Ml Vial) 25 mg IVPUSH Q6H PRN PRN Reason: Itching Docusate Sodium (Docusate Sodium 100 Mg Capsule) 100 mg PO BID [facility] Glucose (Glucose Gel 15 Gm Gel..Gram.) 15 gm PO Q15M PRN; Protocol PRN Reason: per Hypoglycemia Standing Ord. Hydralazine HCl (Hydralazine Hcl 50 Mg Tablet) 50 mg PO TID [facility]; Protocol Hydralazine HCl (Hydralazine Hcl 20 Mg/Ml Vial) 10 mg IVPUSH Q6H PRN; Protocol PRN Reason: SBP > 160 Doxycycline Hyclate 100 mg/ (Sodium Chloride) 250 mls @ 166.67 mls/hr IV Q12H [facility] Insulin Human Lispro (Insulin Lispro 100 Unit/Ml 3 Ml Vial) 0 unit SUBCUT QIDACHS [facility]; Protocol Levetiracetam (Levetiracetam 500 Mg Tablet) 1,500 mg PO BID [facility] Metoclopramide HCl (Metoclopramide Hcl 10 Mg Tablet) 10 mg PO Q6H PRN PRN Reason: Nausea and Vomiting Non-Formulary Medication (Calcium Carbonate [Tums]) 200 mg PO TIDWM PRN PRN Reason: Acid Reflux Ondansetron HCl (Ondansetron Hcl 4 Mg/2 Ml Vial) 4 mg IVPUSH Q8H PRN PRN Reason: Nausea and Vomiting Oxycodone HCl (Oxycodone Hcl Er 10 Mg Tab.Er.12h) 10 mg PO BID [facility] Oxycodone HCl (Oxycodone Hcl Immed Release 5 Mg Tablet) 10 mg PO Q4H PRN PRN Reason: Pain, Severe (Pain Scale 7-10) Polyethylene Glycol (Polyethylene Glycol 3350 17 Gm Powd.Pack) 17 gm PO DAILY PRN PRN Reason: Constipation Prednisone (Prednisone 10 Mg Tablet) 10 mg PO DAILY [facility]; Taper Stop: 02/15/25 08:59 Sodium Chloride (0.9 % Sodium Chloride Flush 3 Ml Syringe) 3 ml IVFLUSH QSHIFT [facility] Valproic Acid (Valproic Acid 250 Mg Capsule) 500 mg PO TID [facility] Home Medications ?Medication ?Instructions ?Recorded ?Confirmed ?Last Taken ?Type albuterol sulfate 90 mcg/actuation 2 puff inhalation Q 6H PRN wheezing 01/15/24 02/10/25 12/09/24 History aerosol inhaler (Ventolin HFA) nitroglycerin 0.4 mg sublingual 0.4 mg sublingual D IRECTED PRN 01/15/24 02/10/25 12/09/24 History tablet Angina calcium carbonate (Tums) 200 mg PO TIDWM PRN Acid Ref lux 07/03/24 02/10/25 12/09/24 History levetiracetam 500 mg tablet 1,500 mg PO BID 02/02/25 1 04/13/24 02/01/25 History (Keppra) lidocaine 4 % topical patch 1 patch topical DAILY PRN Pain 02/02/25 02/10/25 Unknown History polyethylene glycol 3350 17 17 g PO DAILY PRN Constipa tion 02/08/25 02/10/25 Unknown History gram/dose oral powder (Miralax) prednisone 10 mg tablet 10 mg PO DAILY 02/08/2501/2602/07/25 History acetaminophen 325 mg tablet 975 mg PO Q6H PRN mild jamar n 02/10/25 02/10/25 Unknown History insulin lispro 100 unit/mL 1 sliding scale dose subcut QIDACHS 02/10/25 02/10/25 Unknown History subcutaneous pen (Admelog SoloStar U-100 Insulin lispro) sodium zirconium cyclosilicate 10 10 g PO MOWEFR 02/1002/10/25 Unknown History gram oral powder packet (Lokelma) Physical Exam 2 Vital Signs and Narrative: Vital Signs: Last Vital Signs Temp 97.2 F 02/10/25 22:02 Pulse 95 02/10/25 22:02 Resp 16 02/10/25 22:02 BP 135/68 02/10/25 22:02 Pulse Ox 92 02/10/25 22:02 O2 Del Method Aerosol Mask 02/10/25 22:02 O2 Flow Rate 2 02/10/25 22:02 Oxygen Flow Rate 2 02/10/25 12:33 BMI result Body Mass Index 32.0 General: AOx3, no acute distress Resp: CTA bilaterally CVS: S1, S2, RRR GI: +BS, NT, no distention Skin: Warm, dry. Neuro: Cranial nerves II-XII grossly intact bilaterally. Motor grossly intact bilaterally Extremities: L stump wrapped from recent I+D, chronic R foot wound Psych: Appropriate affect Const: General: No confusion Orientation/consciousness: No confusion Neuro: General: No confusion Results Labs 02/10/25 13:01 02/10/25 12:59 Labs: Laboratory Results - last 24 hr 02/10/25 02/10/25 02/10/25 12:59 12:59 13:00 MCV MCH MCHC RDW Plt Count MPV Immature Gran % (Auto) Neut % (Auto) Lymph % (Auto) [place] % (Auto) Eos % (Auto) Baso % (Auto) Lymph # (Auto) [place] # (Auto) Eos # (Auto) Baso # (Auto) Abs Immat Gran (auto) Absolute Neuts (auto) Absolute Nucleated RBC Nucleated RBC % (auto) PT 14.3 H INR 1.2 H VBG pH VBG pCO2 VBG pO2 VBG HCO3 VBG Base Excess Anion Gap 20 Estim Creat Clear Calc 12.8 Estimated GFR 7 Random Glucose 89 Lactic Acid 1.6 Calcium 7.0 L D Total Bilirubin 0.6 AST 36 H ALT 21 Alkaline Phosphatase 198 H Troponin I High Sens 78.7 H* D Total Protein 6.4 L Albumin 3.3 L Beta HCG, Quant < 2 Cancelled 02/10/25 02/10/25 02/10/25 13:01 13:05 15:26 MCV 93.4 MCH 31.3 MCHC 33.5 RDW 16.1 H Plt Count 166 D MPV 12.1 Immature Gran % (Auto) 0.9 H Neut % (Auto) 82.8 H Lymph % (Auto) 3.9 L [place] % (Auto) 10.5 Eos % (Auto) 1.7 Baso % (Auto) 0.2 Lymph # (Auto) 0.3 L [place] # (Auto) 0.7 Eos # (Auto) 0.1 Baso # (Auto) 0.0 Abs Immat Gran (auto) 0.06 H Absolute Neuts (auto) 5.3 Absolute Nucleated RBC 0.000 Nucleated RBC % (auto) 0.0 PT INR VBG pH 7.54 H VBG pCO2 27 VBG pO2 78 VBG HCO3 23 VBG Base Excess 2.1 Anion Gap Estim Creat Clear Calc Estimated GFR Random Glucose Lactic Acid Calcium Total Bilirubin AST ALT Alkaline Phosphatase Troponin I High Sens 87.2 H* Total Protein Albumin Beta HCG, Quant Imaging Radiologist's Impressions: Impressions Femur CT 02/10/25 16:41 Impression: 4.5 x 4.7 x 2.8 cm multiloculated thick-walled fluid collection adjacent to the remaining distal tibial shaft. This may represent an abscess. Surgical amputation margin is sharp without evidence of bone destruction and no evidence of osteomyelitis is seen. Severe atherosclerotic disease. Electronically signed by: Ivette Crystal MD 02/10/2025 05:24 PM [facility] Assessment and Plan (1) Amputation stump infection: Status: Acute (2) Hematoma: Status: Acute Plan Patient is a 34-year-old female with past medical history ESRD on dialysis TTS- nonoliguric, nonanuric, Anemia secondary to ESRD, IDDM II with diabetic retinopathy and blindness, chronic right foot wound, left BKA (Jan [address] Rajput), HTN, PAD, hx c diff, anxiety, depression, recent dx of PE on eliquis, seizure disorder, MS, CVA, Sepsis/Bacteremia/ hx of central line infection, admitted by general surgery for hematoma vs abscess L stump. Hospitalist consult placed for medical management. L BKA stump hematoma vs abscess - plan per general surgery, possible US guided I+D - zosyn and doxycycline - monitor CBC and BMP - hold eliquis pending re-eval by surgeon in AM - continue home oxycodone for pain management ESRD on HD TTS - nephrology consult, Dr Siddiqi - tele anemia, secondary to ESRD, likely exacerbated my stump injury - monitor H+H - no need for blood transfusion at this time IDDM - diabetic diet - SSI HTN - amlodipine, carvedilol, hydralazine Recent diagnosis PE - hold Eliquis pending re-evaluation in a.m., resume as soon as possible Seizure disorder - Keppra and valproic acid -- pt reports she only takes seizure meds in AM, will need to confirm again in AM MS - prednisone Chronic constipation - MiraLax, senna, Dulcolax Chronic right foot wound - wound care consult Full code VTE prophylaxis: Eliquis pending re-evaluation by surgeon in a.m. Thank you for allowing me to participate in the pt's care. Will follow along. Please contact the medical team if any questions or concerns.
[2025-02-11] MEDS: oxyCODONE HCl Immed Release 5 MG TABLET 10 MG PO (01:22)
--- NOTE | 2025-02-11 07:02 | PC.NURSE ---
Pt may be off tele for Dialysis per Risa Brewster.
[2025-02-11 07:16] LABS: Glucose, Whole Blood 65 mg/dL (60-115)
--- NOTE | 2025-02-11 07:21 | PC.NURSE ---
POC 63- pt does not want bkfst, asking for jello- regular jello being fed topt at this time, will notify provider. Pt also hypertensive. will also report.
[2025-02-11 07:50] LABS: Glucose, Whole Blood 77 mg/dL (60-115)
--- NOTE | 2025-02-11 07:58 | PM.PNGS ---
Subjective Subjective Date of Service: 02/11/25 <Regino Sauceda PA-C - Last Filed: 02/11/25 11:14> 02/12/25 <Tu Rajput MD - Last Filed: 02/12/25 08:03> Interval history: complaining of pain in the stump, extending to just below knee. denies fevers. unsure if this has been draining. Has VNA 3x/wk, sister changes dressings the other days. They told her it was opening on the middle of the stump <Regino Sauceda PA-C - Last Filed: 02/11/25 11:14> Physical Exam Vital Signs: Vital Signs: Last Vital Signs Temp 97.9 F 02/11/25 01:26 Pulse 102 H 02/11/25 07:20 Resp 24 H 02/11/25 07:20 BP 186/115 H 02/11/25 07:20 Pulse Ox 96 02/11/25 07:20 O2 Del Method Room Air 02/11/25 07:20 O2 Flow Rate 2 02/11/25 04:00 Oxygen Flow Rate 2 02/10/25 12:33 BMI result Body Mass Index 32.0 <Regino Sauceda PA-C - Last Filed: 02/11/25 11:14> Const: General: comfortable and no acute distress <LEXA Gomez Last Filed: 02/11/25 11:14> Orientation/consciousness: patient oriented x3 <Regino Sauceda PA-C - Last Filed: 02/11/25 11:14> Neuro: General: patient oriented x3 <LEXA Gomez Last Filed: 02/11/25 11:14> Extrem: Other: left BKA: stump sight. mildly erythematous, tender to light palpation on the distal end of the stump. 3-4 cm area of separation of the wound on the anterior midling. No drainage. No palpable fluctuance no necrosis of the flap <LEXA Gomez Last Filed: 02/11/25 11:14> Objective Data Active Medications Acetaminophen (Acetaminophen 325 Mg Tablet) 650 mg PO Q6H PRN PRN Reason: Pain, Mild 1-3,fever,headache Albuterol Sulfate (Albuterol Sulfate 90 Mcg 8 Gm Inhaler) 2 puff INHALE Q6H PRN PRN Reason: Wheezing Amlodipine Besylate (Amlodipine Besylate 2.5 Mg Tablet) 7.5 mg PO BEDTIME [facility]; Protocol Apixaban (Apixaban 2.5 Mg Tablet) 2.5 mg PO BID [facility] Bisacodyl (Bisacodyl 5 Mg Tablet.Dr) 10 mg PO BEDTIME PRN PRN Reason: Constipation Calcium Carbonate (Calcium Carbonate 750 Mg Tab.Chew) 750 mg PO TIDWM PRN PRN Reason: Acid Reflux Carvedilol (Carvedilol 12.5 Mg Tablet) 12.5 mg PO BID [facility]; Protocol Dextrose (Dextrose 50 % 25 Gm/50 Ml Syringe) 25 gm IVPUSH Q15M PRN; Protocol PRN Reason: per Hypoglycemia Standing Ord. Diphenhydramine HCl (Diphenhydramine Hcl 50 Mg/Ml Vial) 25 mg IVPUSH Q6H PRN PRN Reason: Itching Last Admin: 02/11/25 07:08 Dose: 25 mg Documented By: MICKEY Docusate Sodium (Docusate Sodium 100 Mg Capsule) 100 mg PO BID [facility] Glucose (Glucose Gel 15 Gm Gel..Gram.) 15 gm PO Q15M PRN; Protocol PRN Reason: per Hypoglycemia Standing Ord. Hydralazine HCl (Hydralazine Hcl 50 Mg Tablet) 50 mg PO TID [facility]; Protocol Hydralazine HCl (Hydralazine Hcl 20 Mg/Ml Vial) 10 mg IVPUSH Q6H PRN; Protocol PRN Reason: SBP > 160 Doxycycline Hyclate 100 mg/ (Sodium Chloride) 250 mls @ 166.67 mls/hr IV Q12H [facility] Last Infusion: 02/11/25 03:14 Dose: Infused Documented By: MADAN Insulin Human Lispro (Insulin Lispro 100 Unit/Ml 3 Ml Vial) 0 unit SUBCUT QIDACHS [facility]; Protocol Last Admin: 02/11/25 07:20 Dose: Not Given Documented By: MICKEY Non-Admin Reason: No Insulin Coverage Levetiracetam (Levetiracetam 500 Mg Tablet) 1,500 mg PO BID [facility] Metoclopramide HCl (Metoclopramide Hcl 10 Mg Tablet) 10 mg PO Q6H PRN PRN Reason: Nausea and Vomiting Ondansetron HCl (Ondansetron Hcl 4 Mg/2 Ml Vial) 4 mg IVPUSH Q8H PRN PRN Reason: Nausea and Vomiting Last Admin: 02/11/25 01:46 Dose: 4 mg Documented By: MADAN Oxycodone HCl (Oxycodone Hcl Er 10 Mg Tab.Er.12h) 10 mg PO BID [facility] Oxycodone HCl (Oxycodone Hcl Immed Release 5 Mg Tablet) 10 mg PO Q4H PRN PRN Reason: Pain, Severe (Pain Scale 7-10) Last Admin: 02/11/25 01:22 Dose: 10 mg Documented By: MADAN Polyethylene Glycol (Polyethylene Glycol 3350 17 Gm Powd.Pack) 17 gm PO DAILY PRN PRN Reason: Constipation Prednisone (Prednisone 10 Mg Tablet) 10 mg PO DAILY ONE Stop: 02/11/25 09:01 Sodium Chloride (0.9 % Sodium Chloride Flush 3 Ml Syringe) [facility] Last Admin: 02/11/25 01:08 Dose: Not Given Documented By: MADAN Non-Admin Reason: 10 ml flush used Valproic Acid (Valproic Acid 250 Mg Capsule) 500 mg PO TID [facility] <Regino Sauceda PA-C - Last Filed: 02/11/25 11:14> Labs CBC & Chem 7: 02/10/25 13:01 02/10/25 12:59 <Regino Sauceda PA-C - Last Filed: 02/11/25 11:14> Labs: Laboratory Results - last 24 hr 02/10/25 02/10/25 02/10/25 12:59 12:59 13:00 MCV MCH MCHC RDW Plt Count MPV Immature Gran % (Auto) Neut % (Auto) Lymph % (Auto) [place] % (Auto) Eos % (Auto) Baso % (Auto) Lymph # (Auto) [place] # (Auto) Eos # (Auto) Baso # (Auto) Abs Immat Gran (auto) Absolute Neuts (auto) Absolute Nucleated RBC Nucleated RBC % (auto) PT 14.3 H INR 1.2 H VBG pH VBG pCO2 VBG pO2 VBG HCO3 VBG Base Excess Anion Gap 20 Estim Creat Clear Calc 12.8 Estimated GFR 7 POC Glucose Random Glucose 89 Lactic Acid 1.6 Calcium 7.0 L D Total Bilirubin 0.6 AST 36 H ALT 21 Alkaline Phosphatase 198 H Troponin I High Sens 78.7 H* D Total Protein 6.4 L Albumin 3.3 L Beta HCG, Quant < 2 Cancelled 02/10/25 02/10/25 02/10/25 13:01 13:05 15:26 MCV 93.4 MCH 31.3 MCHC 33.5 RDW 16.1 H Plt Count 166 D MPV 12.1 Immature Gran % (Auto) 0.9 H Neut % (Auto) 82.8 H Lymph % (Auto) 3.9 L [place] % (Auto) 10.5 Eos % (Auto) 1.7 Baso % (Auto) 0.2 Lymph # (Auto) 0.3 L [place] # (Auto) 0.7 Eos # (Auto) 0.1 Baso # (Auto) 0.0 Abs Immat Gran (auto) 0.06 H Absolute Neuts (auto) 5.3 Absolute Nucleated RBC 0.000 Nucleated RBC % (auto) 0.0 PT INR VBG pH 7.54 H VBG pCO2 27 VBG pO2 78 VBG HCO3 23 VBG Base Excess 2.1 Anion Gap Estim Creat Clear Calc Estimated GFR POC Glucose Random Glucose Lactic Acid Calcium Total Bilirubin AST ALT Alkaline Phosphatase Troponin I High Sens 87.2 H* Total Protein Albumin Beta HCG, Quant 02/11/25 02/11/25 07:12 07:47 MCV MCH MCHC RDW Plt Count MPV Immature Gran % (Auto) Neut % (Auto) Lymph % (Auto) [place] % (Auto) Eos % (Auto) Baso % (Auto) Lymph # (Auto) [place] # (Auto) Eos # (Auto) Baso # (Auto) Abs Immat Gran (auto) Absolute Neuts (auto) Absolute Nucleated RBC Nucleated RBC % (auto) PT INR VBG pH VBG pCO2 VBG pO2 VBG HCO3 VBG Base Excess Anion Gap Estim Creat Clear Calc Estimated GFR POC Glucose 65 77 Random Glucose Lactic Acid Calcium Total Bilirubin AST ALT Alkaline Phosphatase Troponin I High Sens Total Protein Albumin Beta HCG, Quant <Regino Sauceda PA-C - Last Filed: 02/11/25 11:14> Procedures Date of Service Date of Service: 02/11/25 <Regino Sauceda PA-C - Last Filed: 02/11/25 11:14> 02/12/25 <Tu Rajput MD - Last Filed: 02/12/25 08:03> Progress Note: A&P Assessment and plan (1) Amputation stump infection: Status: Acute <Regino Sauceda PA-C - Last Filed: 02/11/25 11:14> Assessment and Plan: She says that she actually came in for chest pain CAT scan findings showing loculated fluid collection in the stump Previous CAT scans also showing similar collection Aspirated by Dr. Celestin last night - old blood No surgical intervention planned currently Hospitalist follow up for multiple medical problems I have changed her dressings Wound care for superficial open areas along old incision Seen and examined independently <Tu Rajput MD - Last Filed: 02/12/25 08:03> Assessment and Plan: 34-year-old female with complex medical history including ESRD on dialysis known to our service well for chronic wounds now status post left BKA this December with Dr. Rajptu. Patient was found to have small fluid collection in the distal left lower extremity beneath the stump have issues presented from dialysis chest pain. She complains of pain in the stump, denies drainage as she is aware of. Fluid collection seen on imaging was attempted to be aspirated by Dr. Celestin last night which revealed old blood. At this point probably does not need IR drainage. On exam appears mildly erythematous at the stump, there was no obvious fluid collection but was very tender throughout the stump and surrounding areas. For now would recommend daily wound care with dry dressings, wrapped with Kerlix and Izaiah. Should also keep this elevated, can do warm compresses to the area. We will defer to wound care for further recommendations. The wound actually looks good and well perfused, there were no areas of necrosis. From our standpoint no surgical intervention needed, she has the hospitalist following for medical management. Can likely be discharged today with wound care instructions if hospitalist team can medically clear her. <Regino Sauceda PA-C - Last Filed: 02/11/25 11:14> Time Spent With Patient Time: Total time managing care of this patient today ____ minutes. <Regino Sauceda PA-C - Last Filed: 02/11/25 11:14> Quality Stroke Does the patient have a stroke diagnosis?: No <Regino Sauceda PA-C - Last Filed: 02/11/25 11:14> VTE Prior VTE?: No <Regino Sauceda PA-C - Last Filed: 02/11/25 11:14> VTE Risk Level:: Medical - low <Regino Sauceda PA-C - Last Filed: 02/11/25 11:14> VTE Device Contraindication: N/A - Device Ordered <Regino Sauceda PA-C - Last Filed: 02/11/25 11:14> VTE Drug Contraindication: Treatment Not Indicated <Regino Sauceda PA-C - Last Filed: 02/11/25 11:14>
--- NOTE | 2025-02-11 08:06 | PC.NURSE ---
Sasha BETH in [facility] given report about HTN and PO, aware.
[2025-02-11 12:18] LABS: Glucose, Whole Blood 66 mg/dL (60-115)
[2025-02-11] MEDS: oxyCODONE HCl ER 10 MG TAB.ER.12H PO (12:23)
[2025-02-11 12:41] LABS: Glucose, Whole Blood 70 mg/dL (60-115)
--- NOTE | 2025-02-11 13:00 | MHC.CM.PN ---
IMM 02/11/25, Pt. lives with her sister, she has 50 hrs of [employer] care per week. She is active with [facility], she will go home via BLS. Pt. uses a w/c, and goes to at [facility]. DCP:home with services, CM to follow for DC needs.
--- NOTE | 2025-02-11 15:46 | PM.EVENT ---
Event Note Date of Service: 02/11/25 Event Note: Seen earlier on afternoon rounds She says she is ?okay? She again says that she came in for chest pain but she says this has resolved Some pain on the left foot but not severe She had dialysis earlier Continue wound care on the left foot Possible DC home tomorrow No surgical intervention necessary Discussed with the hospitalist service - appreciate follow up Time Spent With Patient Time: Total time managing care of this patient today ____ minutes.
[2025-02-11 16:35] LABS: Glucose, Whole Blood 169 mg/dL (60-115)
--- NOTE | 2025-02-11 19:45 | PM.CNNEP ---
History of Present Illness Reason for Consult Consult date: 02/11/25 Reason for consult: ESRD and HD management Chief Complaint Chief complaint: chest pain History of Present Illness Narrative: RT[facility] consulted for HD management ESRD TTS [facility] adm with CP Multiple comp med probs as noted below Review of Systems Review of Systems Pertinent review of systems as mentioned in HPI. All other system otherwise negative. Yes all other systems are reviewed and are negative Constitutional: Denies body ache(s), Denies chills, Denies fatigue, Denies fever(s) and Denies headache(s) Eyes: Denies change in vision Denies headache(s) and Denies nasal congestion Cardiovascular: Denies rapid heart rate, Denies lightheadedness and Denies dyspnea Respiratory: Denies chest congestion, Denies cough, Denies dyspnea and Denies wheezing Gastrointestinal: Denies abdominal pain, Denies nausea and Denies vomiting Musculoskeletal: Denies myalgias Skin/Breast: Reports as per HPI Denies confusion and Denies headache(s) Psychiatric: Denies confusion Endocrine: Denies fatigue Hematologic/Lymphatic: Denies easy bruising Allergic/Immunologic: Denies wheezing PMFSH Past Medical History Medical History End-stage renal disease (ESRD) Type II diabetes mellitus Severe sepsis Multiple sclerosis exacerbation Multiple sclerosis Central pontine myelinolysis ESRD on hemodialysis End-stage renal disease (ESRD) Cardiomyopathy Cerebral microvascular disease Steroid-induced hyperglycemia Relapsing remitting multiple sclerosis Renal failure Multiple sclerosis Cerebral infarction Hyperkalemia ESRD on dialysis Hypoxia End stage renal disease on dialysis Chronic ulcer of right foot due to diabetes mellitus Chronic ulcer of left foot due to diabetes mellitus DM foot ulcer Hypotonic neurogenic bladder Diabetic polyneuropathy Hypertensive emergency Decompensated heart failure Renal failure Hypertension, uncontrolled Medical non-compliance Pericarditis Unspecified hypertension, condition or complication Metabolic acidosis Gastroparesis End stage chronic kidney disease Chronic kidney disease Anemia Plantar ulcer of left foot MDD (major depressive disorder) CKD (chronic kidney disease) Hypertension Vomiting Chronic pain Non-compliance with renal dialysis Diabetic foot ulcer associated with type 2 diabetes mellitus HFrEF (heart failure with reduced ejection fraction) delivery delivered Anemia in chronic kidney disease (CKD) CKD (chronic kidney disease) Abnormal finding on echocardiogram Elevated troponin Acute worsening of stage 3 chronic kidney disease Generalized edema Sepsis Cellulitis Pleural effusion Atypical chest pain Bone infection PAD (peripheral artery disease) Cellulitis and abscess of foot Osteomyelitis Asthma Depression with anxiety Diabetic retinopathy Blind right eye Diabetes Back pain Family History Family History Mother Coronary artery disease Myocardial infarction Stroke Diabetes mellitus Father Myocardial infarction Surgical History Surgical History Status post below-knee amputation of left lower extremity Below-knee amputation of left lower extremity (~01/05/25) Tubal ligation status Previous section Hx laparoscopic cholecystectomy Hx of surgical procedure (~09/11/23) 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 Social History Social History Household Members: Family Household Members Other:: sister, brother, [id number] Housing: House Housing Other:: Apartment, 1st floor Are you a primary continuum of care manager to a significant other at home: No Do you presently have visiting nurse or other home services: Yes Alcohol intake: never Comment: patient refusing bed alarm Patient Tobacco Use Status: Never used Tobacco e-Cigarette/Vaping Use: Never Used Second Hand Smoke Exposure: No Advance Directives Date on File: 09/04/23 service: No Current occupational status: unemployed and disabled Gender identity: Female Meds Allergies Allergy/AdvReac Type Severity Reaction Status Date / Time gabapentin Allergy Severe Facial Verified 02/10/25 12:33 Swelling tramadol Allergy Severe Facial Verified 02/10/25 12:33 Swelling azithromycin (From Zithromax) Allergy Intermediate Hives Verified 02/10/25 12:33 morphine (MORPHINE) Allergy Intermediate Itching Verified 02/10/25 12:33 vancomycin AdvReac Intermediate Itching Verified 02/10/25 12:33 Active Medications: Current Medications Acetaminophen (Acetaminophen 325 Mg Tablet) 650 mg PO Q6H PRN PRN Reason: Pain, Mild 1-3,fever,headache Albuterol Sulfate (Albuterol Sulfate 90 Mcg 8 Gm Inhaler) 2 puff INHALE Q6H PRN PRN Reason: Wheezing Amlodipine Besylate (Amlodipine Besylate 2.5 Mg Tablet) 7.5 mg PO BEDTIME [facility]; Protocol Apixaban (Apixaban 2.5 Mg Tablet) 2.5 mg PO BID [facility] On Hold: 02/11/25 09:00 Bisacodyl (Bisacodyl 5 Mg Tablet.Dr) 10 mg PO BEDTIME PRN PRN Reason: Constipation Calcium Carbonate (Calcium Carbonate 750 Mg Tab.Chew) 750 mg PO TIDWM PRN PRN Reason: Acid Reflux Carvedilol (Carvedilol 12.5 Mg Tablet) 12.5 mg PO BID [facility]; Protocol Last Admin: 02/11/25 12:22 Dose: 12.5 mg Dextrose (Dextrose 50 % 25 Gm/50 Ml Syringe) 25 gm IVPUSH Q15M PRN; Protocol PRN Reason: per Hypoglycemia Standing Ord. Diphenhydramine HCl (Diphenhydramine Hcl 50 Mg/Ml Vial) 25 mg IVPUSH Q6H PRN PRN Reason: Itching Last Admin: 02/11/25 16:16 Dose: 25 mg Docusate Sodium (Docusate Sodium 100 Mg Capsule) 100 mg PO BID [facility] Last Admin: 02/11/25 12:23 Dose: 100 mg Glucose (Glucose Gel 15 Gm Gel..Gram.) 15 gm PO Q15M PRN; Protocol PRN Reason: per Hypoglycemia Standing Ord. Hydralazine HCl (Hydralazine Hcl 50 Mg Tablet) 50 mg PO TID [facility]; Protocol Last Admin: 02/11/25 17:41 Dose: Not Given Hydralazine HCl (Hydralazine Hcl 20 Mg/Ml Vial) 10 mg IVPUSH Q6H PRN; Protocol PRN Reason: SBP > 160 Hydromorphone HCl (Hydromorphone Hcl 1 Mg/Ml Syringe) 1 mg IVPUSH Q4H PRN; Protocol PRN Reason: Pain, Severe (Pain Scale 7-10) Last Admin: 02/11/25 16:17 Dose: 1 mg Doxycycline Hyclate 100 mg/ (Sodium Chloride) 250 mls @ 166.67 mls/hr IV Q12H [facility] Last Infusion: 02/11/25 14:20 Dose: Infused Insulin Human Lispro (Insulin Lispro 100 Unit/Ml 3 Ml Vial) 0 unit SUBCUT QIDACHS [facility]; Protocol Last Admin: 02/11/25 18:11 Dose: 2 unit Levetiracetam (Levetiracetam 500 Mg Tablet) 1,500 mg PO BID [facility] Last Admin: 02/11/25 12:22 Dose: 1,500 mg Metoclopramide HCl (Metoclopramide Hcl 10 Mg Tablet) 10 mg PO Q6H PRN PRN Reason: Nausea and Vomiting Ondansetron HCl (Ondansetron Hcl 4 Mg/2 Ml Vial) 4 mg IVPUSH Q8H PRN PRN Reason: Nausea and Vomiting Last Admin: 02/11/25 01:46 Dose: 4 mg Oxycodone HCl (Oxycodone Hcl Er 10 Mg Tab.Er.12h) 10 mg PO BID [facility] Last Admin: 02/11/25 12:23 Dose: 10 mg Oxycodone HCl (Oxycodone Hcl Immed Release 5 Mg Tablet) 10 mg PO Q4H PRN PRN Reason: Pain, Severe (Pain Scale 7-10) Last Admin: 02/11/25 01:22 Dose: 10 mg Polyethylene Glycol (Polyethylene Glycol 3350 17 Gm Powd.Pack) 17 gm PO DAILY PRN PRN Reason: Constipation Sodium Chloride (0.9 % Sodium Chloride Flush 3 Ml Syringe) 3 ml IVFLUSH QSHIFT [facility] Last Admin: 02/11/25 15:38 Dose: Not Given Valproic Acid (Valproic Acid 250 Mg Capsule) 500 mg PO TID [facility] Last Admin: 02/11/25 17:40 Dose: 500 mg Home Medications ?Medication ?Instructions ?Recorded ?Confirmed ?Last Taken ?Type albuterol sulfate 90 mcg/actuation 2 puff inhalation Q6H PRN wheezing 01/15/24 02/10/25 12/09/24 History aerosol inhaler (Ventolin HFA) nitroglycerin 0.4 mg sublingual 0.4 mg sublingual DIRECTED PRN 01/15/24 02/10/25 12/09/24 History tablet Angina calcium carbonate (Tums) 200 mg PO TIDWM PRN Acid Reflux 07/03/24 02/10/25 12/09/24 History levetiracetam 500 mg tablet 1,500 mg PO BID 02/02/25 02/10/25 02/01/25 History (Keppra) lidocaine 4 % topical patch 1 patch topical DAILY PRN Pain 02/02/25 02/10/25 Unknown History polyethylene glycol 3350 17 17 g PO DAILY PRN Constipation 02/08/25 02/10/25 Unknown History gram/dose oral powder (Miralax) prednisone 10 mg tablet 10 mg PO DAILY 02/08/25 02/10/25 02/07/25 History acetaminophen 325 mg tablet 975 mg PO Q6H PRN mild pain 02/10/25 02/10/25 Unknown History insulin lispro 100 unit/mL 1 sliding scale dose subcut QIDACHS 02/10/25 02/10/25 Unknown History subcutaneous pen (Admelog SoloStar U-100 Insulin lispro) sodium zirconium cyclosilicate 10 10 g PO MOWEFR 02/10/25 02/10/25 Unknown History gram oral powder packet (Lokelma) Physical Exam Vital Signs: Last Vital Signs Temp 97.6 F 02/11/25 15:48 Pulse 87 02/11/25 15:48 Resp 18 02/11/25 15:48 BP 104/55 L 02/11/25 15:48 Pulse Ox 92 02/11/25 15:48 O2 Del Method Nasal Cannula 02/11/25 15:48 O2 Flow Rate 2 02/11/25 15:48 Oxygen Flow Rate 2 02/10/25 12:33 BMI result Body Mass Index 32.0 Const General: cooperative, comfortable, no acute distress and acute distress moderate; No confusion Orientation/consciousness: patient oriented x3 and No confusion Cardio Rate: regular rate Skin Other: left BKA stump the lateral aspect has some opening with separation of the skin with some underlying fatty tissue which looks relatively clean and healthy. There some bogginess at the base of the stump and she is most tender here. There is no true erythema in this area but maybe a little more reactive along the incision site. She does complain of tenderness and pulls back with palpation of the stump. The skin and tissue looks very healthy and viable Neuro General: patient oriented x3 and No confusion Extrem Other: left BKA: stump sight. mildly erythematous, tender to light palpation on the distal end of the stump. 3-4 cm area of separation of the wound on the anterior midling. No drainage. No palpable fluctuance no necrosis of the flap Results Lab Results 02/10/25 13:01 02/10/25 12:59 Lab results: Chemistry 02/10/25 12:59 Sodium 139 Potassium 5.2 H Carbon Dioxide 23 BUN 68 H Creatinine 6.86 H* Calcium 7.0 L D Hematology 02/10/25 13:01 WBC 6.4 Hgb 8.1 L Plt Count 166 D Assessment and Plan (1) Amputation stump infection: Status: Acute She says that she actually came in for chest pain CAT scan findings showing loculated fluid collection in the stump Recent CAT scans also showing similar collection Aspirated by Dr. Celestin last night - old blood No surgical intervention planned currently Hospitalist follow up for multiple medical problems I have changed her dressings Seen and examined independently Plan ESRD today and then cont TTS her usu schedule Nephrogenic Anemia: look to cont EPO MBD of ESRD Wound at BKA site: surg eval Will follow w team Procedures Date of Service Date of Service: 02/11/25
[2025-02-11 20:11] LABS: Glucose, Whole Blood 156 mg/dL (60-115)
[2025-02-12] MEDS: 0.9 % Sodium Chloride Flush 3 ML SYRINGE IVFLUSH ×2 (01:55→08:42)
[2025-02-12 06:01] VITALS: BP 129/83; PULSE 71; RESP 16; TEMP 36.1; O2SAT 97
[2025-02-12 07:08] LABS: Glucose, Whole Blood 99 mg/dL (60-115)
[2025-02-12 07:21] VITALS: BP 131/84; PULSE 76; RESP 18; TEMP 36.4; O2SAT 94
--- NOTE | 2025-02-12 08:03 | PM.PNGS ---
Subjective Subjective Date of Service: 02/12/25 Interval history: Says she is ?okay? today Main complaint is pain on her port site after dialysis yesterday Left foot pain not worse Physical Exam Vital Signs: Vital Signs: Last Vital Signs Temp 97.5 F 02/12/25 07:21 Pulse 76 02/12/25 07:21 Resp 18 02/12/25 07:21 BP 131/84 02/12/25 07:21 Pulse Ox 94 02/12/25 07:21 O2 Del Method Nasal Cannula 02/12/25 07:21 O2 Flow Rate 2 02/12/25 07:21 Oxygen Flow Rate 2 02/10/25 12:33 BMI result Body Mass Index 32.0 Const: General: comfortable and no acute distress Resp: Effort & Inspection: normal respiratory effort Cardio: Rate: regular rate GI: Palpation (GI): Soft to palpation and nontender Extrem: Other: Left foot BKA stump without any fluctuance, induration, discharge; some superficial open areas along incision with scabbing otherwise clean Objective Data Active Medications Acetaminophen (Acetaminophen 325 Mg Tablet) 650 mg PO Q6H PRN PRN Reason: Pain, Mild 1-3,fever,headache Albuterol Sulfate (Albuterol Sulfate 90 Mcg 8 Gm Inhaler) 2 puff INHALE Q6H PRN PRN Reason: Wheezing Amlodipine Besylate (Amlodipine Besylate 2.5 Mg Tablet) 7.5 mg PO BEDTIME [facility]; Protocol Last Admin: 02/11/25 20:46 Dose: 7.5 mg Documented By: LISA Apixaban (Apixaban 2.5 Mg Tablet) 2.5 mg PO BID [facility] On Hold: 02/11/25 09:00 Bisacodyl (Bisacodyl 5 Mg Tablet.) 10 mg PO BEDTIME PRN PRN Reason: Constipation Calcium Carbonate (Calcium Carbonate 750 Mg Tab.Chew) 750 mg PO TIDWM PRN PRN Reason: Acid Reflux Carvedilol (Carvedilol 12.5 Mg Tablet) 12.5 mg PO BID [facility]; Protocol Last Admin: 02/11/25 20:47 Dose: Not Given Documented By: LISA Non-Admin Reason: Patient Refused Dextrose (Dextrose 50 % 25 Gm/50 Ml Syringe) 25 gm IVPUSH Q15M PRN; Protocol PRN Reason: per Hypoglycemia Standing Ord. Diphenhydramine HCl (Diphenhydramine Hcl 50 Mg/Ml Vial) 25 mg IVPUSH Q6H PRN PRN Reason: Itching Last Admin: 02/11/25 23:18 Dose: 25 mg Documented By: LISA Docusate Sodium (Docusate Sodium 100 Mg Capsule) 100 mg PO BID [facility] Last Admin: 02/11/25 20:47 Dose: Not Given Documented By: LISA Non-Admin Reason: Patient Refused Glucose (Glucose Gel 15 Gm Gel..Gram.) 15 gm PO Q15M PRN; Protocol PRN Reason: per Hypoglycemia Standing Ord. Hydralazine HCl (Hydralazine Hcl 50 Mg Tablet) 50 mg PO TID [facility]; Protocol Last Admin: 02/11/25 20:47 Dose: Not Given Documented By: LISA Non-Admin Reason: Patient Refused Hydralazine HCl (Hydralazine Hcl 20 Mg/Ml Vial) 10 mg IVPUSH Q6H PRN; Protocol PRN Reason: SBP > 160 Hydromorphone HCl (Hydromorphone Hcl 1 Mg/Ml Syringe) 1 mg IVPUSH Q4H PRN; Protocol PRN Reason: Pain, Severe (Pain Scale 7-10) Last Admin: 02/12/25 06:02 Dose: 1 mg Documented By: LISA Doxycycline Hyclate 100 mg/ (Sodium Chloride) 250 mls @ 166.67 mls/hr IV Q12H [facility] Last Infusion: 02/12/25 03:27 Dose: Infused Documented By: LISA Insulin Human Lispro (Insulin Lispro 100 Unit/Ml 3 Ml Vial) 0 unit SUBCUT QIDACHS [facility]; Protocol Last Admin: 02/11/25 21:30 Dose: Not Given Documented By: LISA Non-Admin Reason: Patient Refused Levetiracetam (Levetiracetam 500 Mg Tablet) 1,500 mg PO BID [facility] Last Admin: 02/11/25 20:46 Dose: 1,500 mg Documented By: LISA Metoclopramide HCl (Metoclopramide Hcl 10 Mg Tablet) 10 mg PO Q6H PRN PRN Reason: Nausea and Vomiting Ondansetron HCl (Ondansetron Hcl 4 Mg/2 Ml Vial) 4 mg IVPUSH Q8H PRN PRN Reason: Nausea and Vomiting Last Admin: 02/11/25 01:46 Dose: 4 mg Documented By: MADAN Oxycodone HCl (Oxycodone Hcl Er 10 Mg Tab.Er.12h) 10 mg PO BID [facility] Last Admin: 02/11/25 20:47 Dose: Not Given Documented By: LISA Non-Admin Reason: Patient Refused Oxycodone HCl (Oxycodone Hcl Immed Release 5 Mg Tablet) 10 mg PO Q4H PRN PRN Reason: Pain, Severe (Pain Scale 7-10) Last Admin: 02/11/25 01:22 Dose: 10 mg Documented By: MADAN Polyethylene Glycol (Polyethylene Glycol 3350 17 Gm Powd.Pack) 17 gm PO DAILY PRN PRN Reason: Constipation Sodium Chloride (0.9 % Sodium Chloride Flush 3 Ml Syringe) 3 ml IVFLUSH QSHIFT [facility] Last Admin: 02/12/25 01:55 Dose: 3 ml Documented By: LISA Valproic Acid (Valproic Acid 250 Mg Capsule) 500 mg PO TID [facility] Last Admin: 02/11/25 20:46 Dose: 500 mg Documented By: LISA Labs 02/10/25 13:01 02/10/25 12:59 Labs: Laboratory Results - last 24 hr 02/10/25 02/11/25 02/11/25 13:05 12:11 12:38 VBG O2 Saturation TNP POC Glucose 66 70 02/11/25 02/11/25 02/12/25 16:32 20:05 07:04 VBG O2 Saturation POC Glucose 169 H 156 H 99 Microbiology Microbiology Results: Microbiology 02/10/25 13:15 Blood Culture - Preliminary Blood - Venous No growth after 24 hours. 02/10/25 12:58 Blood Culture - Preliminary Blood - Venous No growth after 24 hours. Procedures Date of Service Date of Service: 02/12/25 Progress Note: A&P Assessment and plan (1) Hematoma: Status: Acute Assessment and Plan: BKA site does not seem to be infected Superficial scabbing noted areas of the incision otherwise clean I have changed her dressings, wrapped BKA site with Izaiah bandage No other acute issues currently She says she does not want to go home today and wants to go home tomorrow after dialysis Hospitalist service following Wound care for BKA site Time Spent With Patient Time: Total time managing care of this patient today ____ minutes. Quality Stroke Does the patient have a stroke diagnosis?: No VTE Prior VTE?: No VTE Risk Level:: Medical - low VTE Device Contraindication: N/A - Device Ordered VTE Drug Contraindication: Treatment Not Indicated
[2025-02-12] MEDS: oxyCODONE HCl ER 10 MG TAB.ER.12H PO (08:37)
[2025-02-12 11:08] LABS: Glucose, Whole Blood 124 mg/dL (60-115)
[2025-02-12 11:51] VITALS: BP 92/58; PULSE 76; RESP 18; TEMP 36.2; O2SAT 92
--- NOTE | 2025-02-12 12:49 | P.PNNP_ITS ---
Subjective Subjective Date of Service: 02/12/25 Interval history: Seen and examined,e vents nioted Physical Exam 2 Vital Signs: Vital Signs: Last Vital Signs Temp 97.2 F 02/12/25 11:51 Pulse 76 02/12/25 11:51 Resp 18 02/12/25 11:51 BP 92/58 L 02/12/25 11:51 Pulse Ox 92 02/12/25 11:51 O2 Del Method Room Air 02/12/25 11:51 O2 Flow Rate 2 02/12/25 07:21 Oxygen Flow Rate 2 02/10/25 12:33 BMI result Body Mass Index 32.0 Const: General: cooperative, comfortable, no acute distress and acute distress moderate; No confusion Orientation/consciousness: patient oriented x3 and No confusion Cardio: Rate: regular rate Skin: Other: left BKA stump the lateral aspect has some opening with separation of the skin with some underlying fatty tissue which looks relatively clean and healthy. There some bogginess at the base of the stump and she is most tender here. There is no true erythema in this area but maybe a little more reactive along the incision site. She does complain of tenderness and pulls back with palpation of the stump. The skin and tissue looks very healthy and viable Neuro: General: patient oriented x3 and No confusion Extrem: Other: left BKA: stump sight. mildly erythematous, tender to light palpation on the distal end of the stump. 3-4 cm area of separation of the wound on the anterior midling. No drainage. No palpable fluctuance no necrosis of the flap Objective Data Labs 02/10/25 13:01 02/10/25 12:59 Labs: Laboratory Results - last 24 hr 02/11/25 02/11/25 02/12/25 16:32 20:05 07:04 POC Glucose 169 H 156 H 99 02/12/25 11:04 POC Glucose 124 H Microbiology Microbiology Results: Microbiology 02/10/25 13:15 Blood - Venous Blood Culture - Preliminary No growth after 24 hours. 02/10/25 12:58 Blood - Venous Blood Culture - Preliminary No growth after 24 hours. 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 Progress Note: Quality Stroke Does the patient have a stroke diagnosis?: No
--- NOTE | 2025-02-12 15:23 | HO.WOUND ---
Wound Consult: Initial 34 yr old female admitted to [facility] [place] [facility] on 02/10/25- See progress notes and H&P for detailed history. Wound consult placed for right foot. Patient agreeable to assessment and photo documentation. Patient with chronic diabetic wounds, recent L BKA. Left BKA seen by general surgery with topical recommendations in place for silver alginate, patient reports dressing was completed today by dr cruz. Right foot with callus that flaked off revealing healed skin, right lateral ankle with superficial dry intact scab- patient reports that she tends to pick at the area, requesting dry dressing for coverage. Right foot Right lateral ankle Recommendations: Left bka per lorena - alginate and dry dressing , followed by gisela wrap right foot/ankle: dry dressing every other day per patient preference Re-consult wound care Nurse for wound deterioration or wound changes.
--- NOTE | 2025-02-12 15:32 | PM.EVENT ---
Event Note Date of Service: 02/12/25 Event Note: She has no new complaints Same left BKA stump pain No fever She has this periodic chest pain, left and right Looks well overall as baseline She says that she wants to stay until tomorrow and says that she will go home after dialysis Hospitalist follow up No need for IV antibiotics Time Spent With Patient Time: Total time managing care of this patient today ____ minutes.
--- NOTE | 2025-02-12 15:39 | HO.PM.IMPN ---
Subjective Subjective Date of Service: 02/12/25 Interval History: no new complaints Neurologic Neurologic: Denies confusion Psychiatric Psychiatric: Denies confusion Physical Exam Vital Signs: Vital Signs: Last Vital Signs Temp 97.2 F 02/12/25 11:51 Pulse 76 02/12/25 11:51 Resp 18 02/12/25 11:51 BP 92/58 L 02/12/25 11:51 Pulse Ox 92 02/12/25 11:51 O2 Del Method Room Air 02/12/25 11:51 O2 Flow Rate 2 02/12/25 07:21 Oxygen Flow Rate 2 02/10/25 12:33 BMI result Body Mass Index 32.0 Const: General: cooperative, comfortable, no acute distress and acute distress moderate; No confusion Orientation/consciousness: patient oriented x3 and No confusion Cardio: Rate: regular rate Skin: Other: left BKA stump the lateral aspect has some opening with separation of the skin with some underlying fatty tissue which looks relatively clean and healthy. There some bogginess at the base of the stump and she is most tender here. There is no true erythema in this area but maybe a little more reactive along the incision site. She does complain of tenderness and pulls back with palpation of the stump. The skin and tissue looks very healthy and viable Neuro: General: patient oriented x3 and No confusion Extrem: Other: left BKA: stump sight. mildly erythematous, tender to light palpation on the distal end of the stump. 3-4 cm area of separation of the wound on the anterior midling. No drainage. No palpable fluctuance no necrosis of the flap Objective Data Active Medications Acetaminophen (Acetaminophen 325 Mg Tablet) 650 mg PO Q6H PRN PRN Reason: Pain, Mild 1-3,fever,headache Albuterol Sulfate (Albuterol Sulfate 90 Mcg 8 Gm Inhaler) 2 puff INHALE Q6H PRN PRN Reason: Wheezing Amlodipine Besylate (Amlodipine Besylate 2.5 Mg Tablet) 7.5 mg PO BEDTIME [facility]; Protocol Last Admin: 02/11/25 20:46 Dose: 7.5 mg Documented By: LISA Apixaban (Apixaban 2.5 Mg Tablet) 2.5 mg PO BID [facility] On Hold: 02/11/25 09:00 Bisacodyl (Bisacodyl 5 Mg Tablet.) 10 mg PO BEDTIME PRN PRN Reason: Constipation Calcium Carbonate (Calcium Carbonate 750 Mg Tab.Chew) 750 mg PO TIDWM PRN PRN Reason: Acid Reflux Carvedilol (Carvedilol 12.5 Mg Tablet) 12.5 mg PO BID [facility]; Protocol Last Admin: 02/12/25 08:36 Dose: 12.5 mg Documented By: PER Dextrose (Dextrose 50 % 25 Gm/50 Ml Syringe) 25 gm IVPUSH Q15M PRN; Protocol PRN Reason: per Hypoglycemia Standing Ord. Diphenhydramine HCl (Diphenhydramine Hcl 50 Mg/Ml Vial) 25 mg IVPUSH Q6H PRN PRN Reason: Itching Last Admin: 02/12/25 08:41 Dose: 25 mg Documented By: PER Docusate Sodium (Docusate Sodium 100 Mg Capsule) 100 mg PO BID [facility] Last Admin: 02/12/25 08:44 Dose: Not Given Documented By: PER Non-Admin Reason: Patient Refused Glucose (Glucose Gel 15 Gm Gel..Gram.) 15 gm PO Q15M PRN; Protocol PRN Reason: per Hypoglycemia Standing Ord. Hydralazine HCl (Hydralazine Hcl 50 Mg Tablet) 50 mg PO TID [facility]; Protocol Last Admin: 02/12/25 08:37 Dose: 50 mg Documented By: PER Hydralazine HCl (Hydralazine Hcl 20 Mg/Ml Vial) 10 mg IVPUSH Q6H PRN; Protocol PRN Reason: SBP > 160 Hydromorphone HCl (Hydromorphone Hcl 1 Mg/Ml Syringe) 1 mg IVPUSH Q4H PRN; Protocol PRN Reason: Pain, Severe (Pain Scale 7-10) Last Admin: 02/12/25 10:32 Dose: 1 mg Documented By: CASSIE Doxycycline Hyclate 100 mg/ (Sodium Chloride) 250 mls @ 166.67 mls/hr IV Q12H [facility] Last Infusion: 02/12/25 12:46 Dose: 0 mls/hr Documented By: CASSIE Insulin Human Lispro (Insulin Lispro 100 Unit/Ml 3 Ml Vial) 0 unit SUBCUT QIDACHS [facility]; Protocol Last Admin: 02/12/25 12:03 Dose: Not Given Documented By: CASSIE Non-Admin Reason: No Insulin Coverage Levetiracetam (Levetiracetam 500 Mg Tablet) 1,500 mg PO BID [facility] Last Admin: 02/12/25 08:36 Dose: 1,500 mg Documented By: PER Metoclopramide HCl (Metoclopramide Hcl 10 Mg Tablet) 10 mg PO Q6H PRN PRN Reason: Nausea and Vomiting Ondansetron HCl (Ondansetron Hcl 4 Mg/2 Ml Vial) 4 mg IVPUSH Q8H PRN PRN Reason: Nausea and Vomiting Last Admin: 02/11/25 01:46 Dose: 4 mg Documented By: MADAN Oxycodone HCl (Oxycodone Hcl Er 10 Mg Tab.Er.12h) 10 mg PO BID [facility] Last Admin: 02/12/25 08:37 Dose: 10 mg Documented By: PER Oxycodone HCl (Oxycodone Hcl Immed Release 5 Mg Tablet) 10 mg PO Q4H PRN PRN Reason: Pain, Severe (Pain Scale 7-10) Last Admin: 02/11/25 01:22 Dose: 10 mg Documented By: MADAN Polyethylene Glycol (Polyethylene Glycol 3350 17 Gm Powd.Pack) 17 gm PO DAILY PRN PRN Reason: Constipation Sodium Chloride (0.9 % Sodium Chloride Flush 3 Ml Syringe) 3 ml IVFLUSH QSHIFT [facility] Last Admin: 02/12/25 08:42 Dose: 3 ml Documented By: PER Valproic Acid (Valproic Acid 250 Mg Capsule) 500 mg PO TID [facility] Last Admin: 02/12/25 08:37 Dose: 500 mg Documented By: PER Labs 02/10/25 13:01 02/10/25 12:59 Labs: Laboratory Results - last 24 hr 02/11/25 02/11/25 02/12/25 16:32 20:05 07:04 POC Glucose 169 H 156 H 99 02/12/25 11:04 POC Glucose 124 H Microbiology Microbiology Results: Microbiology 02/10/25 13:15 Blood Culture - Preliminary Blood - Venous No growth after 48 hours. 02/10/25 12:58 Blood Culture - Preliminary Blood - Venous No growth after 48 hours. 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 Rajput), HTN, PAD, hx c diff, anxiety, depression, recent dx of PE on eliquis, seizure disorder, MS, CVA, Sepsis/Bacteremia/ hx of central line infection, admitted by general surgery for hematoma vs abscess L stump. Hospitalist consult placed for medical management. L BKA stump hematoma vs abscess - plan per general surgery - zosyn and doxycycline - continue home oxycodone for pain management ESRD on HD TTS - nephrology - RTANE - HD anemia, secondary to ESRD, likely exacerbated my stump injury - monitor H+H - no need for blood transfusion at this time IDDM - diabetic diet - SSI HTN - amlodipine, carvedilol, hydralazine Recent diagnosis PE - restart Eliquis Seizure disorder - Keppra and valproic acid -- pt reports she only takes seizure meds in AM, will need to confirm again in AM MS - prednisone Chronic constipation - MiraLax, senna, Dulcolax Chronic right foot wound - wound care consult Full code Quality Stroke Does the patient have a stroke diagnosis?: No VTE Prior VTE?: No VTE Risk Level:: Medical - low VTE Device Contraindication: N/A - Device Ordered VTE Drug Contraindication: Treatment Not Indicated
[2025-02-12 15:41] VITALS: BP 117/66; PULSE 76; RESP 20; TEMP 36.3; O2SAT 99
--- NOTE | 2025-02-12 15:55 | PC.NURSE ---
IV infiltrated during infusion of Doxycycline. Patient requires US guided IV placement. ICU called and IV was replaced at 1500. Doxycycline restarted. Provider notified via [place].
[2025-02-12 16:20] LABS: Glucose, Whole Blood 95 mg/dL (60-115)
[2025-02-12 20:00] VITALS: BP 96/54; PULSE 79; RESP 18; TEMP 36.3; O2SAT 92
[2025-02-12 20:40] VITALS: BP 96/54
[2025-02-12 21:09] LABS: Glucose, Whole Blood 167 mg/dL (60-115)
[2025-02-13] VITALS (11 sets, daily range): BP systolic 65–107; BP diastolic 43–65; PULSE 78–92; RESP 15–20; TEMP 36–36.8; O2SAT 93–100
[2025-02-13] MEDS: 0.9 % Sodium Chloride Flush 3 ML SYRINGE IVFLUSH ×3 (00:15→16:59)
[2025-02-13 07:32] LABS: Glucose, Whole Blood 81 mg/dL (60-115)
--- NOTE | 2025-02-13 08:06 | PM.PNGS ---
Subjective Subjective Date of Service: 02/14/25 <Tu Rajupt MD - Last Filed: 02/14/25 08:54> 02/13/25 <Regino Sauceda PA-C - Last Filed: 02/13/25 09:15> Interval history: Says she had some nausea No events overnight Same complaints of pain on the BKA site, not worse <Tu Rajput MD - Last Filed: 02/14/25 08:54> Says she had some nausea No events overnight Same complaints of pain on the BKA site, not worse Complaining of pain at the stump, states it feels like the needle for when this was aspirated. Denies fevers. Has been having nausea. Plan for dialysis today <Regino Sauceda PA-C - Last Filed: 02/13/25 09:15> Physical Exam Vital Signs: Vital Signs: Last Vital Signs Temp 96.8 F 02/13/25 07:23 Pulse 78 02/13/25 07:23 Resp 18 02/13/25 07:23 BP 98/56 L 02/13/25 07:23 Pulse Ox 94 02/13/25 07:23 O2 Del Method Room Air 02/13/25 07:23 O2 Flow Rate 2 02/13/25 03:11 Oxygen Flow Rate 2 02/10/25 12:33 BMI result Body Mass Index 32.0 <Tu Rajput MD - Last Filed: 02/14/25 08:54> Const: General: no acute distress <Tu Rajput MD - Last Filed: 02/14/25 08:54> Resp: Effort & Inspection: normal respiratory effort <Tu Rajput MD - Last Filed: 02/14/25 08:54> Cardio: Rate: regular rate <Tu Rajput MD - Last Filed: 02/14/25 08:54> GI: Inspection: No distended <Tu Rajput MD - Last Filed: 02/14/25 08:54> Palpation (GI): Soft to palpation, not firm, nontender and no guarding <Tu Rajput MD - Last Filed: 02/14/25 08:54> Extrem: Other: Left BKA stump improved from admission. No erythema, open separation from incision site appears stable, no drainage. No bleeding. Tender to palpation <Regino Sauceda PA-C - Last Filed: 02/13/25 09:15> Objective Data Active Medications Acetaminophen (Acetaminophen 325 Mg Tablet) 650 mg PO Q6H PRN PRN Reason: Pain, Mild 1-3,fever,headache Albuterol Sulfate (Albuterol Sulfate 90 Mcg 8 Gm Inhaler) 2 puff INHALE Q6H PRN PRN Reason: Wheezing Amlodipine Besylate (Amlodipine Besylate 2.5 Mg Tablet) 7.5 mg PO BEDTIME [facility]; Protocol Last Admin: 02/12/25 20:40 Dose: Not Given Documented By: LISA Non-Admin Reason: Patient Refused Apixaban (Apixaban 2.5 Mg Tablet) 2.5 mg PO BID [facility] Last Admin: 02/12/25 20:12 Dose: 2.5 mg Documented By: LISA Bisacodyl (Bisacodyl 5 Mg Tablet.Dr) 10 mg PO BEDTIME PRN PRN Reason: Constipation Calcium Carbonate (Calcium Carbonate 750 Mg Tab.Chew) 750 mg PO TIDWM PRN PRN Reason: Acid Reflux Carvedilol (Carvedilol 12.5 Mg Tablet) 12.5 mg PO BID [facility]; Protocol Last Admin: 02/13/25 07:48 Dose: Not Given Documented By: KARLI Non-Admin Reason: bp low Dextrose (Dextrose 50 % 25 Gm/50 Ml Syringe) 25 gm IVPUSH Q15M PRN; Protocol PRN Reason: per Hypoglycemia Standing Ord. Diphenhydramine HCl (Diphenhydramine Hcl 50 Mg/Ml Vial) 25 mg IVPUSH Q6H PRN PRN Reason: Itching Last Admin: 02/13/25 06:42 Dose: 25 mg Documented By: LISA Docusate Sodium (Docusate Sodium 100 Mg Capsule) 100 mg PO BID [facility]PL[facility]ED BY [facility] Last Admin: 02/12/25 21:27 Dose: Not Given Documented By: LISA Non-Admin Reason: Patient Refused Doxycycline Monohydrate (Doxycycline Monohydrate 100 Mg Capsule) 100 mg PO BID [facility]PL[facility] BY [facility] Glucose (Glucose Gel 15 Gm Gel..Gram.) 15 gm PO Q15M PRN; Protocol PRN Reason: per Hypoglycemia Standing Ord. Hydralazine HCl (Hydralazine Hcl 50 Mg Tablet) 50 mg PO TID [facility]PL[facility]; Protocol Last Admin: 02/13/25 07:48 Dose: Not Given Documented By: KARLI Non-Admin Reason: bp low Hydralazine HCl (Hydralazine Hcl 20 Mg/Ml Vial) 10 mg IVPUSH Q6H PRN; Protocol PRN Reason: SBP > 160 Hydromorphone HCl (Hydromorphone Hcl 1 Mg/Ml Syringe) 1 mg IVPUSH Q4H PRN; Protocol PRN Reason: Pain, Severe (Pain Scale 7-10) Last Admin: 02/13/25 04:18 Dose: 1 mg Documented By: LISA Insulin Human Lispro (Insulin Lispro 100 Unit/Ml 3 Ml Vial) 0 unit SUBCUT QIDACHS REPLACED BY [facility]; Protocol Last Admin: 02/13/25 07:37 Dose: Not Given Documented By: KARLI Non-Admin Reason: No Insulin Coverage Levetiracetam (Levetiracetam 500 Mg Tablet) 1,500 mg PO BID REPLACED BY [facility] Last Admin: 02/13/25 00:06 Dose: 1,500 mg Documented By: LISA Metoclopramide HCl (Metoclopramide Hcl 10 Mg Tablet) 10 mg PO Q6H PRN PRN Reason: Nausea and Vomiting Ondansetron HCl (Ondansetron Hcl 4 Mg/2 Ml Vial) 4 mg IVPUSH Q8H PRN PRN Reason: Nausea and Vomiting Last Admin: 02/13/25 07:49 Dose: 4 mg Documented By: KARLI Comments: md order to give dose early Oxycodone HCl (Oxycodone Hcl Er 10 Mg Tab.Er.12h) 10 mg PO BID REPLACED BY [facility] Last Admin: 02/12/25 21:00 Dose: Not Given Documented By: LISA Non-Admin Reason: Patient Refused Oxycodone HCl (Oxycodone Hcl Immed Release 5 Mg Tablet) 10 mg PO Q4H PRN PRN Reason: Pain, Severe (Pain Scale 7-10) Last Admin: 02/11/25 01:22 Dose: 10 mg Documented By: MADAN Polyethylene Glycol (Polyethylene Glycol 3350 17 Gm Powd.Pack) 17 gm PO DAILY PRN PRN Reason: Constipation Sodium Chloride (0.9 % Sodium Chloride Flush 3 Ml Syringe) [facility] Last Admin: 02/13/25 07:50 Dose: 3 ml Documented By: KARLI Valproic Acid (Valproic Acid 250 Mg Capsule) 500 mg PO TID REPLACED BY [facility] Last Admin: 02/13/25 00:06 Dose: 500 mg Documented By: LISA <Tu Rajput MD - Last Filed: 02/14/25 08:54> Labs CBC & Chem 7: 02/14/25 08:29 02/13/25 12:27 <uT Rajput MD - Last Filed: 02/14/25 08:54> Labs: Laboratory Results - last 24 hr 02/12/25 02/12/25 02/12/25 11:04 16:16 21:05 POC Glucose 124 H 95 167 H 02/13/25 07:27 POC Glucose 81 <Tu Rajput MD - Last Filed: 02/14/25 08:54> Microbiology Microbiology Results: Microbiology 02/10/25 13:15 Blood Culture - Preliminary Blood - Venous No growth after 48 hours. 02/10/25 12:58 Blood Culture - Preliminary Blood - Venous No growth after 48 hours. <Tu Rajput MD - Last Filed: 02/14/25 08:54> Procedures Date of Service Date of Service: 02/14/25 <Tu Rajput MD - Last Filed: 02/14/25 08:54> 02/13/25 <Regino Sauceda PA-C - Last Filed: 02/13/25 09:15> Progress Note: A&P Assessment and plan (1) Hematoma: Status: Acute <Tu Rajput MD - Last Filed: 02/14/25 08:54> Assessment and Plan: Continue wound care with dry dressings daily No need for I and D or debridement She says that she does not feel she will be ready to be discharged today Says that her dialysis usually finishes late We will re-evaluate later on today She she has had some nausea but exam otherwise benign Discussed with the hospitalist service yesterday <Tu Rajput MD - Last Filed: 02/14/25 08:54> Time Spent With Patient Time: Total time managing care of this patient today ____ minutes. <Tu Rajput MD - Last Filed: 02/14/25 08:54> Quality Stroke Does the patient have a stroke diagnosis?: No <Tu Rajput MD - Last Filed: 02/14/25 08:54> VTE Prior VTE?: No <Tu Rajput MD - Last Filed: 02/14/25 08:54> VTE Risk Level:: Medical - low <Tu Rajput MD - Last Filed: 02/14/25 08:54> VTE Device Contraindication: N/A - Device Ordered <Tu Rajput MD - Last Filed: 02/14/25 08:54> VTE Drug Contraindication: Treatment Not Indicated <Tu Rajput MD - Last Filed: 02/14/25 08:54>
[2025-02-13 11:46] LABS: Glucose, Whole Blood 81 mg/dL (60-115)
[2025-02-13 12:38] LABS: Hematocrit 21.4 % (37.0-47.0); Hemoglobin 7.1 g/dl (12.0-16.0); Mean Corpuscular HGB Conc 33.2 g/dl (31.0-35.0); Mean Corpuscular Hemoglobin 31.3 pg (27.0-33.0); Mean Corpuscular Volume 94.3 fL (80.0-98.0); NRBC Abs Auto 0.000 X10*3/uL (0.0-0.012); NRBC Pct Auto 0.0 /100WBC (0.0-0.2); Platelet Count 120 X10*3/uL (160-400); Red Blood Count 2.27 X10*6/uL (4.20-5.50); White Blood Count 7.4 X10*3/uL (4.8-10.8)
[2025-02-13 12:54] LABS: Anion Gap 16 (12-20); Blood Urea Nitrogen 19 mg/dL (9-16); Calcium 7.8 mg/dL (8.4-10.2); Carbon Dioxide 27 mmol/L (22-29); Chloride 101 mmol/L (96-108); Creatinine Clr Calc Pharmacy 28.2; Estimated Glomerular Filt Rate 17; Magnesium 2.0 mg/dL (1.6-2.6); Potassium 3.6 mmol/L (3.3-5.1); Sodium 140 mmol/L (135-145)
--- NOTE | 2025-02-13 15:58 | MHC.CM.PN ---
Patient is not medically cleared to discharge. DP Home with services via BLS. Resumption of HD at [facility].
--- NOTE | 2025-02-13 16:04 | PM.EVENT ---
Event Note Date of Service: 02/14/25 Event Note: She had dialysis this afternoon No events reported She appears comfortable She does not want to go home today Says she will go home tomorrow Continue current wound care for the left leg BKA site Discussed with the hospitalist service Labs okay Time Spent With Patient Time: Total time managing care of this patient today ____ minutes.
--- NOTE | 2025-02-13 16:21 | P.CNID_ITS ---
History of Present Illness Data of Consult Service Date: 02/13/25 Requesting physician: Geraldine Celestin Primary Care Provider: Genevieve Casillas MD HPI Reason for consult: throbbing left stump pain She presents to ER with throbbing left stump pain as well as chest pain. She has some exudate from area. She had some chills but no bacteremia. Surgery has been following and no further treatment. Scan shows femur CT BKA and no OM but 4.4 x4.7x2,8 cm abscess,no culture seen. She has ESRD,blindness,h/o Cdiff and PE. Review of Systems 2 Review of Systems: Yes all other systems are reviewed and are negative PMFSH Past Medical History Medical History End-stage renal disease (ESRD) Type II diabetes mellitus Severe sepsis Multiple sclerosis exacerbation Multiple sclerosis [place] pontine myelinolysis ESRD on hemodialysis End-stage renal disease (ESRD) Cardiomyopathy Cerebral microvascular disease Steroid-induced hyperglycemia Relapsing remitting multiple sclerosis Renal failure Multiple sclerosis Cerebral infarction Hyperkalemia ESRD on dialysis Hypoxia End stage renal disease on dialysis Chronic ulcer of right foot due to diabetes mellitus Chronic ulcer of left foot due to diabetes mellitus DM foot ulcer Hypotonic neurogenic bladder Diabetic polyneuropathy Hypertensive emergency Decompensated heart failure Renal failure Hypertension, uncontrolled Medical non-compliance Pericarditis Unspecified hypertension, condition or complication Metabolic acidosis Gastroparesis End stage chronic kidney disease Chronic kidney disease Anemia Plantar ulcer of left foot MDD (major depressive disorder) CKD (chronic kidney disease) Hypertension Vomiting Chronic pain Non-compliance with renal dialysis Diabetic foot ulcer associated with type 2 diabetes mellitus HFrEF (heart failure with reduced ejection fraction) delivery delivered Anemia in chronic kidney disease (CKD) CKD (chronic kidney disease) Abnormal finding on echocardiogram Elevated troponin Acute worsening of stage 3 chronic kidney disease Generalized edema Sepsis Cellulitis Pleural effusion Atypical chest pain Bone infection PAD (peripheral artery disease) Cellulitis and abscess of foot Osteomyelitis Asthma Depression with anxiety Diabetic retinopathy Blind right eye Diabetes Back pain Family History Family History Mother Coronary artery disease Myocardial infarction Stroke Diabetes mellitus Father Myocardial infarction Family history: reviewed and not pertinent Surgical History Surgical History Status post below-knee amputation of left lower extremity Below-knee amputation of left lower extremity (~01/05/25) Tubal ligation status Previous section Hx laparoscopic cholecystectomy Hx of surgical procedure (~09/11/23) 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 Social History Social History Household Members: Family Household Members Other:: sister, brother, [id number] Housing: House Housing Other:: Apartment, 1st floor Are you a primary health care consultant to a significant other at home: No Do you presently have visiting nurse or other home services: Yes Alcohol intake: never Comment: patient refusing bed alarm Patient Tobacco Use Status: Never used Tobacco e-Cigarette/Vaping Use: Never Used Second Hand Smoke Exposure: No Advance Directives Date on File: 09/04/23 service: No Current occupational status: unemployed and disabled Gender identity: Female Meds Allergies Allergy/AdvReac Type Severity Reaction Status Date / Time gabapentin Allergy Severe Facial Verified 02/10/25 12:33 Swelling tramadol Allergy Severe Facial Verified 02/10/25 12:33 Swelling azithromycin (From Zithromax) Allergy Intermediate Hives Verified 02/10/25 12:33 morphine (MORPHINE) Allergy Intermediate Itching Verified 02/10/25 12:33 vancomycin AdvReac Intermediate Itching Verified 02/10/25 12:33 Active Medications: Current Medications Acetaminophen (Acetaminophen 325 Mg Tablet) 650 mg PO Q6H PRN PRN Reason: Pain, Mild 1-3,fever,headache Albuterol Sulfate (Albuterol Sulfate 90 Mcg 8 Gm Inhaler) 2 puff INHALE Q6H PRN PRN Reason: Wheezing Amlodipine Besylate (Amlodipine Besylate 2.5 Mg Tablet) 7.5 mg PO BEDTIME [facility]; Protocol Last Admin: 02/12/25 20:40 Dose: Not Given Apixaban (Apixaban 2.5 Mg Tablet) 2.5 mg PO BID [facility] Last Admin: 02/13/25 12:52 Dose: Not Given Bisacodyl (Bisacodyl 5 Mg Tablet.Dr) 10 mg PO BEDTIME PRN PRN Reason: Constipation Calcium Carbonate (Calcium Carbonate 750 Mg Tab.Chew) 750 mg PO TIDWM PRN PRN Reason: Acid Reflux Carvedilol (Carvedilol 12.5 Mg Tablet) 12.5 mg PO BID [facility]; Protocol Last Admin: 02/13/25 07:48 Dose: Not Given Dextrose (Dextrose 50 % 25 Gm/50 Ml Syringe) 25 gm IVPUSH Q15M PRN; Protocol PRN Reason: per Hypoglycemia Standing Ord. Diphenhydramine HCl (Diphenhydramine Hcl 50 Mg/Ml Vial) 25 mg IVPUSH Q6H PRN PRN Reason: Itching Last Admin: 02/13/25 06:42 Dose: 25 mg Docusate Sodium (Docusate Sodium 100 Mg Capsule) 100 mg PO BID [facility] Last Admin: 02/13/25 12:01 Dose: Not Given Doxycycline Monohydrate (Doxycycline Monohydrate 100 Mg Capsule) 100 mg PO BID [facility] Last Admin: 02/13/25 12:52 Dose: Not Given Glucose (Glucose Gel 15 Gm Gel..Gram.) 15 gm PO Q15M PRN; Protocol PRN Reason: per Hypoglycemia Standing Ord. Hydralazine HCl (Hydralazine Hcl 50 Mg Tablet) 50 mg PO TID [facility]; Protocol Last Admin: 02/13/25 14:30 Dose: Not Given Hydralazine HCl (Hydralazine Hcl 20 Mg/Ml Vial) 10 mg IVPUSH Q6H PRN; Protocol PRN Reason: SBP > 160 Hydromorphone HCl (Hydromorphone Hcl 1 Mg/Ml Syringe) 1 mg IVPUSH Q4H PRN; Protocol PRN Reason: Pain, Severe (Pain Scale 7-10) Last Admin: 02/13/25 04:18 Dose: 1 mg Insulin Human Lispro (Insulin Lispro 100 Unit/Ml 3 Ml Vial) 0 unit SUBCUT QIDACHS [facility]; Protocol Last Admin: 02/13/25 12:52 Dose: Not Given Levetiracetam (Levetiracetam 500 Mg Tablet) 1,500 mg PO BID [facility] Last Admin: 02/13/25 12:52 Dose: Not Given Metoclopramide HCl (Metoclopramide Hcl 10 Mg Tablet) 10 mg PO Q6H PRN PRN Reason: Nausea and Vomiting Ondansetron HCl (Ondansetron Hcl 4 Mg/2 Ml Vial) 4 mg IVPUSH Q8H PRN PRN Reason: Nausea and Vomiting Last Admin: 02/13/25 07:49 Dose: 4 mg Oxycodone HCl (Oxycodone Hcl Er 10 Mg Tab.Er.12h) 10 mg PO BID [facility] Last Admin: 02/13/25 12:02 Dose: Not Given Oxycodone HCl (Oxycodone Hcl Immed Release 5 Mg Tablet) 10 mg PO Q4H PRN PRN Reason: Pain, Severe (Pain Scale 7-10) Last Admin: 02/11/25 01:22 Dose: 10 mg Polyethylene Glycol (Polyethylene Glycol 3350 17 Gm Powd.Pack) 17 gm PO DAILY PRN PRN Reason: Constipation Sodium Chloride (0.9 % Sodium Chloride Flush 3 Ml Syringe) 3 ml IVFLUSH QSHIFT [facility] Last Admin: 02/13/25 07:50 Dose: 3 ml Valproic Acid (Valproic Acid 250 Mg Capsule) 500 mg PO TID [facility] Last Admin: 02/13/25 14:30 Dose: Not Given Home Medications ?Medication ?Instructions ?Recorded ?Confirmed ?Last Taken ?Type albuterol sulfate 90 mcg/actuation 2 puff inhalation Q 6H PRN wheezing 01/15/24 02/10/25 12/09/24 History aerosol inhaler (Ventolin HFA) nitroglycerin 0.4 mg sublingual 0.4 mg sublingual D IRECTED PRN 01/15/24 02/10/25 12/09/24 History tablet Angina calcium carbonate (Tums) 200 mg PO TIDWM PRN Acid Ref lux 07/03/24 02/10/25 12/09/24 History levetiracetam 500 mg tablet 1,500 mg PO BID 02/02/25 1 04/13/24 02/01/25 History (Keppra) lidocaine 4 % topical patch 1 patch topical DAILY PRN Pain 02/02/25 02/10/25 Unknown History polyethylene glycol 3350 17 17 g PO DAILY PRN Constipa tion 02/08/25 02/10/25 Unknown History gram/dose oral powder (Miralax) prednisone 10 mg tablet 10 mg PO DAILY 02/08/2501/2602/07/25 History acetaminophen 325 mg tablet 975 mg PO Q6H PRN mild jamar n 02/10/25 02/10/25 Unknown History insulin lispro 100 unit/mL 1 sliding scale dose subcut QIDACHS 02/10/25 02/10/25 Unknown History subcutaneous pen (Admelog SoloStar U-100 Insulin lispro) sodium zirconium cyclosilicate 10 10 g PO MOWEFR 02/1002/10/25 Unknown History gram oral powder packet (Lokelma) Physical Exam 2 Vital Signs: Vital Signs: Last Vital Signs Temp 96.8 F 02/13/25 15:05 Pulse 92 02/13/25 15:05 Resp 18 02/13/25 15:05 BP 94/58 L 02/13/25 15:05 Pulse Ox 95 02/13/25 15:05 O2 Del Method Nasal Cannula 02/13/25 15:05 O2 Flow Rate 2 02/13/25 15:05 Oxygen Flow Rate 2 02/10/25 12:33 BMI result Body Mass Index 32.0 Const: General: cooperative HEENT: Head: Yes normal to inspection Face and sinus: Yes normal facial exam Mouth: Normal oral and palatal mucosa present Teeth and gingiva: d entition normal Eyes: General: appearance normal, both eyes and all related structures P upils: Equal, round and reactive pupils present Resp: Effort & Inspection: normal respiratory effort Cardio: Rate: regular rate Rhythm: regular rhythm GI: Palpation (GI): Soft to palpation and nontender : General: Yes no CVA tenderness Back/Spine/Pelvis: Back: no CVA tenderness Skin: General skin exam: no rashes or lesions noted Neuro: General: moves all extremities Cranial nerves: Yes Equal, round and reactive pupils present Extrem: Other: small amount eschar BKA site left Psych: Appearance: grossly normal Results Labs 02/13/25 12:26 02/13/25 12:27 Labs: Short CBC 02/13/25 Range/Units 12:26 WBC 7.4 (4.8-10.8) X10*3/uL Hgb 7.1 L (12.0-16.0) g/dl Hct 21.4 L (37.0-47.0) % Plt Count 120 L D (160-400) X10*3/uL BMP 02/13/25 12:27 Sodium 140 Potassium 3.6 D Chloride 101 Carbon Dioxide 27 BUN 19 H Creatinine 3.11 H Calcium 7.8 L D Microbiology Microbiology Results: Microbiology 02/10/25 13:15 Blood - Venous Blood Culture - Preliminary No growth after 48 hours. 02/10/25 12:58 Blood - Venous Blood Culture - Preliminary No growth after 48 hours. Assessment and Plan (1) Abscess: Status: Acute (2) Amputation stump infection: Status: Acute Plan Po Doxycycline 14-28 days depends on progress
[2025-02-13 16:23] LABS: Glucose, Whole Blood 63 mg/dL (60-115)
[2025-02-13 16:49] LABS: Glucose, Whole Blood 63 mg/dL (60-115)
[2025-02-13 17:34] LABS: Glucose, Whole Blood 143 mg/dL (60-115)
[2025-02-13 20:03] LABS: Glucose, Whole Blood 78 mg/dL (60-115)
[2025-02-13 22:16] LABS: Glucose, Whole Blood 81 mg/dL (60-115)
--- NOTE | 2025-02-13 23:33 | P.EN_ITS ---
Event Note Date of Service: 02/13/25 Event Note: rapid response called for low BP. IT seems BP has been low prior to HD of 80s/40s but was able to remove 1.4L and post HD BP was also 80s/40. Responded to 500 cc NS bolus with BP 107/64 She refused her seizure medications today; Will load her with 1 gm of Keppra n ow. Time Spent With Patient Time: Total time managing care of this patient today ____ minutes.
[2025-02-14] VITALS (10 sets, daily range): BP systolic 77–101; BP diastolic 52–65; PULSE 73–85; RESP 18–20; TEMP 36.1–36.3; O2SAT 92–95
[2025-02-14] MEDS: levETIRAcetam in NaCl (iso-os) 1,000 MG/100 ML PIGGYBACK 400 MG IV (00:18)
[2025-02-14] MEDS: 0.9 % Sodium Chloride Flush 3 ML SYRINGE IVFLUSH (00:19)
[2025-02-14 02:08] LABS: Glucose, Whole Blood 66 mg/dL (60-115)
[2025-02-14 02:33] LABS: Glucose, Whole Blood 169 mg/dL (60-115)
[2025-02-14 04:30] LABS: Glucose, Whole Blood 100 mg/dL (60-115)
[2025-02-14] MEDS: Lactated Ringers 1,000 ML 500 ML IV (04:59)
[2025-02-14] MEDS: Albumin Human 25 % 100 ML IV ×2 (05:26→07:29)
--- NOTE | 2025-02-14 06:15 | P.EN_ITS ---
Event Note Date of Service: 02/14/25 Event Note: Conducted by the primary RN, patient's BP back down to 77/52 HR 88. Repeat BP 81/53. The patient was seen and evaluated at bedside. LR 500 cc and albumin ordered. Case was discussed with ICU APC who's familiar with the patient evaluated her at bedside, recommended albumin infusion. If blood pressure does not respond after interventions reach out for transfer to ICU level of care. Continuous telemetry monitoring ordered. Approximately 1400 cc of fluid was re moved during dialysis yesterday which is suspected to be the etiology for the low blood pressure. -Repeat BP pending Time Spent With Patient Time: Total time managing care of this patient today ____ minutes.
[2025-02-14 07:23] LABS: Glucose, Whole Blood 55 mg/dL (60-115)
--- NOTE | 2025-02-14 07:25 | PM.EVENT ---
Event Note Date of Service: 02/14/25 Event Note: Hypotension due to hypovolemia from anemia and recent dialysis not sepsis, hold antihypertensives will give 1 unit PRBC and 2 units albumin Time Spent With Patient Time: Total time managing care of this patient today ____ minutes.
[2025-02-14 07:41] LABS: Glucose, Whole Blood 200 mg/dL (60-115)
[2025-02-14 07:56] LABS: Glucose, Whole Blood 151 mg/dL (60-115)
[2025-02-14 08:19] LABS: Glucose, Whole Blood 131 mg/dL (60-115)
--- NOTE | 2025-02-14 08:33 | PC.NURSE ---
Per MD will wait on transfer to see how patient BP responds to IVF and Blood product then reassess.
[2025-02-14 08:38] LABS: Hematocrit 22.2 % (37.0-47.0); Mean Corpuscular HGB Conc 29.7 g/dl (31.0-35.0); Mean Corpuscular Hemoglobin 30.6 pg (27.0-33.0); Mean Corpuscular Volume 102.8 fL (80.0-98.0); NRBC Abs Auto 0.030 X10*3/uL (0.0-0.012); NRBC Pct Auto 0.3 /100WBC (0.0-0.2); PLT CLUMP 1; Red Blood Count 2.16 X10*6/uL (4.20-5.50)
--- NOTE | 2025-02-14 08:38 | HE.NUR.EV ---
Status Change: Patient transferred from [facility] to [place] Room 359-1 at 2200. Patient found to be drowsy but arousable to tactile stimuli. Preferring to lie on her side. Vague complaints of nausea and dizziness but unable to elaborate or answer assessment questions. Patient's blood pressure decreased to 65/43 requiring rapid response to be called and 500 Normal Saline IV bolus to be given increasing BP to 107/65 and dizziness resolved. Pt experienced low glucose level via glucometer at 0200 level of 66 requiring 1 amp of D50 to be given as patient unwilling to drink fluids. POC improved to 169 as documented and POC rechecked maintiaing WNL as documented. Dr. Sears responded to rapid response and updated on patient's response to IVF's and glucose treatment as well as ordered IV Keppra as patient unwilling to take any PO medications tonight. 0440 Patient BP dropped to 77/[address] Blanco came to bedside and 500LR IV bolus ordered and provided. Dr. Blanco made aware patient has no orders for am labs and last H/H drawn on 02/13 was 7.1/21.4. Albumin ordered and given as documented. Per Dr. Blanco continuing to monitor patient's response to Albumin and if patient continues to be hypotensive ordered to notify hospitalist and ICU consult will be placed.
[2025-02-14 08:45] LABS: Hemoglobin 6.6 g/dl (12.0-16.0)
[2025-02-14 08:46] LABS: Platelet Count 110 X10*3/uL (160-400); White Blood Count 9.1 X10*3/uL (4.8-10.8)
--- NOTE | 2025-02-14 08:50 | PM.PNGS ---
Subjective Subjective Date of Service: 02/14/25 Interval history: Seen earlier - informed by nurse of issues overnight Per nursing staff, hypotensive overnight requiring boluses and albumin General anesthesia this morning although answers simple questions Seems to have had poor oral intake as well Pain on left BKA as baseline Physical Exam Vital Signs: Vital Signs: Last Vital Signs Temp 97.3 F 02/14/25 07:15 Pulse 76 02/14/25 08:10 Resp 18 02/14/25 07:15 BP 89/65 L 02/14/25 08:37 Pulse Ox 94 02/14/25 07:15 O2 Del Method Room Air, Nasal C annula 02/14/25 07:15 O2 Flow Rate 1 02/14/25 07:15 Oxygen Flow Rate 2 02/13/25 22:00 BMI result Body Mass Index 32.0 Const: Other: Drowsy, answers simple questions Resp: Effort & Inspection: normal respiratory effort Cardio: Rate: regular rate GI: Palpation (GI): Soft to palpation, not firm and no guarding Extrem: Other: BKA stump without any obvious redness, induration, discharge, open area along incision clean, no fluctuance Objective Data Active Medications Acetaminophen (Acetaminophen 325 Mg Tablet) 650 mg PO Q6H PRN PRN Reason: Pain, Mild 1-3,fever,headache Albuterol Sulfate (Albuterol Sulfate 90 Mcg 8 Gm Inhaler) 2 puff INHALE Q6H PRN PRN Reason: Wheezing Amlodipine Besylate (Amlodipine Besylate 2.5 Mg Tablet) 7.5 mg PO BEDTIME [facility]; Protocol On Hold: 02/14/25 07:24 Last Admin: 02/13/25 23:18 Dose: Not Given Documented By: MONTEZ Non-Admin Reason: Decreased Blood Pressure Apixaban (Apixaban 2.5 Mg Tablet) 2.5 mg PO BID [facility] On Hold: 02/14/25 07:45 Last Admin: 02/13/25 23:22 Dose: Not Given Documented By: MONTEZ Non-Admin Reason: Patient Refused Bisacodyl (Bisacodyl 5 Mg Tablet.Dr) 10 mg PO BEDTIME PRN PRN Reason: Constipation Calcium Carbonate (Calcium Carbonate 750 Mg Tab.Chew) 750 mg PO TIDWM PRN PRN Reason: Acid Reflux Carvedilol (Carvedilol 12.5 Mg Tablet) 12.5 mg PO BID [facility]; Protocol On Hold: 02/14/25 07:24 Last Admin: 02/13/25 23:18 Dose: Not Given Documented By: MONTEZ Non-Admin Reason: Decreased Blood Pressure Dextrose (Dextrose 50 % 25 Gm/50 Ml Syringe) 25 gm IVPUSH Q15M PRN; Protocol PRN Reason: per Hypoglycemia Standing Ord. Last Admin: 02/14/25 07:29 Dose: 25 gm Documented By: JENNY Diphenhydramine HCl (Diphenhydramine Hcl 50 Mg/Ml Vial) 25 mg IVPUSH Q6H PRN PRN Reason: Itching Last Admin: 02/13/25 16:59 Dose: 25 mg Documented By: PER Docusate Sodium (Docusate Sodium 100 Mg Capsule) 100 mg PO BID [facility] Last Admin: 02/13/25 23:18 Dose: Not Given Documented By: MONTEZ Non-Admin Reason: Nausea Doxycycline Monohydrate (Doxycycline Monohydrate 100 Mg Capsule) 100 mg PO BID [facility] Last Admin: 02/13/25 23:19 Dose: Not Given Documented By: MONTEZ Non-Admin Reason: Nausea Glucose (Glucose Gel 15 Gm Gel..Gram.) 15 gm PO Q15M PRN; Protocol PRN Reason: per Hypoglycemia Standing Ord. Hydralazine HCl (Hydralazine Hcl 50 Mg Tablet) 50 mg PO TID [facility]; Protocol On Hold: 02/14/25 07:24 Last Admin: 02/13/25 23:20 Dose: Not Given Documented By: MONTEZ Non-Admin Reason: Decreased Blood Pressure Hydralazine HCl (Hydralazine Hcl 20 Mg/Ml Vial) 10 mg IVPUSH Q6H PRN; Protocol PRN Reason: SBP > 160 Hydromorphone HCl (Hydromorphone Hcl 1 Mg/Ml Syringe) 1 mg IVPUSH Q4H PRN; Protocol PRN Reason: Pain, Severe (Pain Scale 7-10) Last Admin: 02/13/25 04:18 Dose: 1 mg Documented By: LISA Albumin Human (Kedbumin 25 %) 100 mls @ 100 mls/hr IV Q6H [facility] Stop: 02/14/25 12:14 Last Infusion: 02/14/25 06:44 Dose: Infused Documented By: MONTEZ Albumin Human (Kedbumin 25 %) 100 mls @ 100 mls/hr IV Q6H [facility] Stop: 02/14/25 14:29 Last Admin: 02/14/25 07:29 Dose: 100 mls/hr Documented By: JENNY Levetiracetam (Keppra) 1,500 mg in 100 mls @ 400 mls/hr IV ONCE ONE Stop: 02/14/25 08:58 Insulin Human Lispro (Insulin Lispro 100 Unit/Ml 3 Ml Vial) 0 unit SUBCUT QIDACHS [facility]; Protocol Last Admin: 02/14/25 08:05 Dose: Not Given Documented By: JENNY Non-Admin Reason: No Insulin Coverage Levetiracetam (Levetiracetam 500 Mg Tablet) 1,500 mg PO BID [facility] Last Admin: 02/13/25 23:22 Dose: Not Given Documented By: MONTEZ Non-Admin Reason: pt refused. Metoclopramide HCl (Metoclopramide Hcl 10 Mg Tablet) 10 mg PO Q6H PRN PRN Reason: Nausea and Vomiting Ondansetron HCl (Ondansetron Hcl 4 Mg/2 Ml Vial) 4 mg IVPUSH Q8H PRN PRN Reason: Nausea and Vomiting Last Admin: 02/14/25 08:34 Dose: 4 mg Documented By: JENNY Oxycodone HCl (Oxycodone Hcl Er 10 Mg Tab.Er.12h) 10 mg PO BID [facility] Last Admin: 02/13/25 23:20 Dose: Not Given Documented By: MONTEZ Non-Admin Reason: Decreased Blood Pressure Oxycodone HCl (Oxycodone Hcl Immed Release 5 Mg Tablet) 10 mg PO Q4H PRN PRN Reason: Pain, Severe (Pain Scale 7-10) Last Admin: 02/11/25 01:22 Dose: 10 mg Documented By: MADAN Pantoprazole Sodium (Pantoprazole Sodium 40 Mg/10 Ml Vial) 40 mg IVPUSH BID@0630,1630 [facility] Polyethylene Glycol (Polyethylene Glycol 3350 17 Gm Powd.Pack) 17 gm PO DAILY PRN PRN Reason: Constipation Sodium Chloride (0.9 % Sodium Chloride Flush 3 Ml Syringe) 3 ml IVFLUSH QSHIFT [facility] Last Admin: 02/14/25 00:19 Dose: 3 ml Documented By: MONTEZ Valproic Acid (Valproic Acid 250 Mg Capsule) 500 mg PO TID [facility] Last Admin: 02/13/25 23:23 Dose: Not Given Documented By: MONTEZ Non-Admin Reason: Patient Refused Labs 02/14/25 08:29 02/14/25 08:29 Labs: Laboratory Results - last 24 hr 02/13/25 02/13/25 02/13/25 11:41 12:26 12:27 MCV 94.3 MCH 31.3 MCHC 33.2 RDW 16.5 H Plt Count 120 L D MPV 12.8 H Absolute Nucleated RBC 0.000 Nucleated RBC % (auto) 0.0 Anion Gap 16 Estim Creat Clear Calc 28.2 Estimated GFR 17 POC Glucose 81 Random Glucose 74 Calcium 7.8 L D Magnesium 2.0 Crossmatch 02/13/25 02/13/25 02/13/25 16:11 16:42 17:30 MCV MCH MCHC RDW Plt Count MPV Absolute Nucleated RBC Nucleated RBC % (auto) Anion Gap Estim Creat Clear Calc Estimated GFR POC Glucose 63 63 143 H Random Glucose Calcium Magnesium Crossmatch 02/13/25 02/13/25 02/14/25 19:58 22:04 02:03 MCV MCH MCHC RDW Plt Count MPV Absolute Nucleated RBC Nucleated RBC % (auto) Anion Gap Estim Creat Clear Calc Estimated GFR POC Glucose 78 81 66 Random Glucose Calcium Magnesium Crossmatch 02/14/25 02/14/25 02/14/25 02:28 04:25 07:18 MCV MCH MCHC RDW Plt Count MPV Absolute Nucleated RBC Nucleated RBC % (auto) Anion Gap Estim Creat Clear Calc Estimated GFR POC Glucose 169 H 100 55 L* Random Glucose Calcium Magnesium Crossmatch 02/14/25 02/14/25 02/14/25 07:36 07:53 08:14 MCV MCH MCHC RDW Plt Count MPV Absolute Nucleated RBC Nucleated RBC % (auto) Anion Gap Estim Creat Clear Calc Estimated GFR POC Glucose 200 H 151 H 131 H Random Glucose Calcium Magnesium Crossmatch 02/14/25 08:29 MCV 102.8 H D MCH 30.6 MCHC 29.7 L RDW 17.1 H Plt Count 110 L MPV 13.6 H Absolute Nucleated RBC 0.030 H Nucleated RBC % (auto) 0.3 H Anion Gap Estim Creat Clear Calc Estimated GFR POC Glucose Random Glucose Calcium Magnesium Crossmatch See Detail Procedures Date of Service Date of Service: 02/14/25 Progress Note: A&P Assessment and plan (1) Hematoma: Status: Acute Assessment and Plan: No surgical intervention for BKA site - old hematoma no active bleeding Patient planned to be discharged but she has had relatively low blood pressures overnight requiring boluses and albumin Hemoglobin lower than baseline this morning To be transfused Not septic clinically BKA site clean Abdomen is soft and benign Discuss extensively with hospitalist service Time Spent With Patient Time: Total time managing care of this patient today ____ minutes. Quality Stroke Does the patient have a stroke diagnosis?: No VTE Prior VTE?: No VTE Risk Level:: Medical - low VTE Device Contraindication: N/A - Device Ordered VTE Drug Contraindication: Treatment Not Indicated
[2025-02-14 08:56] LABS: Blood Urea Nitrogen 28 mg/dL (9-16); Calcium 7.8 mg/dL (8.4-10.2)
[2025-02-14 09:06] LABS: Anion Gap 29 (12-20); Carbon Dioxide 15 mmol/L (22-29); Chloride 101 mmol/L (96-108); Creatinine Clr Calc Pharmacy 18.9; Estimated Glomerular Filt Rate 11; Potassium 5.5 mmol/L (3.3-5.1); Sodium 139 mmol/L (135-145)
--- NOTE | 2025-02-14 09:50 | PC.NURSE ---
Primary RN Called Rapid Response for patient, patient noted seizing, unresponsive, code blue called overhead, See additional Notes, Patient transferred to ICU.
--- NOTE | 2025-02-14 10:12 | PM.EVENT ---
Event Note Date of Service: 02/14/25 Event Note: Rapid response called for seizure, team quickly assembled, patient was noted to be in asystole with some agonal breathing changed to code blue. ACLS initiated, patient intubated, received 1 amp of epi and 1 amp of bicarb, ROSC achieved after about 7 minutes. transferred to ICU Time Spent With Patient Time: Total time managing care of this patient today ____ minutes.
[2025-02-14 10:17] LABS: Glucose, Whole Blood 103 mg/dL (60-115)
--- NOTE | 2025-02-14 10:46 | PC.RT ---
Code blue called, 3 Rt's respond. Pt was noted in full arrest, MD, nursing and RT in resuscitation. Pt was intubated without issue in one attempt by MD with 7.5 ett 24@ the lip. ETT was secured and placement confirmed via brisa ETCO2, bilat lung sounds and noted condensate on exhalation in the ETT. Pt was transferred to ICU after reassessing a pulse. Once in the ICU after 10 minutes the patient was noted to become bradycardic and again go into full arrest. Resusitation was continued under .
--- NOTE | 2025-02-14 10:51 | PC.NURSE ---
This RN observed patient to be seizing. Rapid response was initiated. Patient became unresponsive and a code blue was called. See code sheet for details.
--- NOTE | 2025-02-14 11:26 | P.DN_ITS ---
Discharge Sum: Prov Provider Primary care physician: Genevieve Casillas MD Consults: 02/10/25 18:50 Consult to Hospitalist Routine Comment: Consulting Provider: [facility] [place] [facility] Reason For Exam: med management - dialysis 02/10/25 23:59 Consult to Nephrology Routine Consulting Provider: Fernando Siddiqi Reason for consultation: ESRD on HD TTS, did not complete Sunday Has provider been notified: No 02/11/25 00:12 Consult to Infectious Diseases Routine Consulting Provider: [facility] [place] [facility] Reason for consultation: stump abscess Has provider been notified: No 02/11/25 00:36 Consult to Wound Care Routine Consulting Provider: [facility] [place] Wound Care Management Reason for consultation: chronic R foot wound 02/14/25 08:47 Consult to Gastroenterology Routine Consulting Provider: [facility] [place] Gastroenterology Services Reason for consultation: anemia, ?GI bleed 02/14/25 09:14 Consult to Critical Care Routine Consulting Provider: Marquis Briggs Reason for consultation: hypotension Discharge Sum: Diag PCOD Cause of : Aspiration into airway Contributing Factors (1) ESRD on hemodialysis: (2) Peripheral vascular disease: (3) Seizure: (4) Diabetes: (5) CHF (congestive heart failure): (6) Pulmonary aspiration: Discharge Sum: Summary Date and Time Date of admission: 02/10/25 18:47 Date of : 02/14/25 Time of : 10:38 Summary Details: 34-year-old lady with underlying diabetes mellitus, end-stage renal disease on hemodialysis, prior CVA, prior seizures, peripheral vascular disease with recent BKA complicated by stump abscess initially admitted on 02/10/2025 with worsening of stump abscess to general surgery service and managed conservatively with hospital course complicated by an acute seizure on the morning of 02/15/2024 resulting in pulmonary aspiration and cardiac arrest. Patient with initial return of spontaneous circulation after 2 rounds of CPR, intubated during CPR, and transferred to the intensive care unit on pressor support. Upon arrival to intensive care unit patient again with sudden deterioration of cardiac rhythm into bradycardia and then asystole with CPR started immediately. CPR performed for additional 20 minutes with patient remaining in PEA/asystole, at that time with further CPR efforts futile patient pronounced at 10:38a.m. Family notified. Additional Data Confirmation of as documented by pronouncing clinician: no pulse, no respirations, no heart sounds and pupils fixed and dilated Family: at bedside Attending physician: Marquis Briggs MD
== END 2025-02-14 10:38 | disposition expired | DRG 564 ==
LOC: HO.ED 18:21 → HO.EDOVER 18:51 → HO.IMC 02-11 07:49 → HO.S3 02-13 19:25 → HO.ICU 02-14 10:06
PROVIDERS: Internal Medicine; Admitting Provider Surgery; Emergency Provider Student in an Organized Health Care Education/Training Program; PCP Student in an Organized Health Care Education/Training Program; Visit Provider Internal Medicine Pulmonary Disease
DX: T87.44 Infection of amputation stump, left lower extremity (principal); N18.6 End stage renal disease; I13.2 Hypertensive heart and chronic kidney disease with heart failure and with stage 5 chronic kidney disease, or end stage renal disease; L76.32 Postprocedural hematoma of skin and subcutaneous tissue following other procedure; D62 Acute posthemorrhagic anemia; I50.22 Chronic systolic (congestive) heart failure; E11.22 Type 2 diabetes mellitus with diabetic chronic kidney disease; Y83.5 Amputation of limb(s) as the cause of abnormal reaction of the patient, or of later complication, without mention of misadventure at the time of the procedure; E11.319 Type 2 diabetes mellitus with unspecified diabetic retinopathy without macular edema; E11.65 Type 2 diabetes mellitus with hyperglycemia; G40.909 Epilepsy, unspecified, not intractable, without status epilepticus; K59.09 Other constipation; N25.0 Renal osteodystrophy; D63.1 Anemia in chronic kidney disease; G35.D Multiple sclerosis, unspecified; E11.649 Type 2 diabetes mellitus with hypoglycemia without coma; E86.1 Hypovolemia; I95.3 Hypotension of hemodialysis; E11.621 Type 2 diabetes mellitus with foot ulcer; I46.9 Cardiac arrest, cause unspecified; T17.908A Unspecified foreign body in respiratory tract, part unspecified causing other injury, initial encounter; L97.519 Non-pressure chronic ulcer of other part of right foot with unspecified severity; Z99.2 Dependence on renal dialysis; Z86.711 Personal history of pulmonary embolism; Z91.158 Patient's noncompliance with renal dialysis for other reason; Z79.4 Long term (current) use of insulin; Z79.01 Long term (current) use of anticoagulants; Z79.899 Other long term (current) drug therapy
CPT/HCPCS: 36415; 73701; 80048; 80053; 82533; 82803; 82947; 83605; 83735; 84484; 84702; 85025; 85027; 85610; 86850; 86900; 86901; 86923; 87040; 90999; 93005; 94799; 99285; J0168; J1171; J1200; J1271; J1953; J2004; J2405; J2543; J3010; J7120; P9016; P9047; Q9967

== ENCOUNTER → 2025-02-10 12:23 | Outpatient (BNV) | payer OTHER, SELFPAY | PROVIDERS: Emergency Provider Student in an Organized Health Care Education/Training Program; PCP Student in an Organized Health Care Education/Training Program; Visit Provider Internal Medicine Cardiovascular Disease | DX: I45.10 Unspecified right bundle-branch block (principal); R00.0 Tachycardia, unspecified | CPT/HCPCS: 93010 ==

== ENCOUNTER → 2025-02-10 14:55 | Outpatient (BNV) | payer OTHER, SELFPAY | PROVIDERS: Emergency Provider Student in an Organized Health Care Education/Training Program; PCP Student in an Organized Health Care Education/Training Program; Visit Provider Radiology Diagnostic Radiology | DX: I70.202 Unspecified atherosclerosis of native arteries of extremities, left leg (principal) | CPT/HCPCS: 73701 ==

== ENCOUNTER → 2025-02-10 18:47 | Outpatient (BNV) | payer OTHER, SELFPAY | PROVIDERS: Admitting Provider Surgery; Emergency Provider Student in an Organized Health Care Education/Training Program; PCP Student in an Organized Health Care Education/Training Program; Visit Provider Physician Assistant | DX: T87.44 Infection of amputation stump, left lower extremity (principal) | CPT/HCPCS: 99223; 99232; 99499 ==

== ENCOUNTER → 2025-02-10 18:47 | Outpatient (BNV) | payer OTHER, SELFPAY | PROVIDERS: Admitting Provider Surgery; Emergency Provider Student in an Organized Health Care Education/Training Program; PCP Student in an Organized Health Care Education/Training Program; Visit Provider Internal Medicine | DX: L02.91 Cutaneous abscess, unspecified (principal); T87.40 Infection of amputation stump, unspecified extremity | CPT/HCPCS: 99222 ==

== ENCOUNTER → 2025-02-10 18:47 | Outpatient (BNV) | payer OTHER, SELFPAY | PROVIDERS: Admitting Provider Surgery; Emergency Provider Student in an Organized Health Care Education/Training Program; PCP Student in an Organized Health Care Education/Training Program; Visit Provider Surgery | DX: T14.8XXA Other injury of unspecified body region, initial encounter (principal) | CPT/HCPCS: 99232; 99499 ==

== ENCOUNTER → 2025-02-10 18:47 | Outpatient (BNV) | payer OTHER, SELFPAY | PROVIDERS: Admitting Provider Surgery; Emergency Provider Student in an Organized Health Care Education/Training Program; PCP Student in an Organized Health Care Education/Training Program; Visit Provider Internal Medicine Pulmonary Disease | DX: N18.6 End stage renal disease (principal); Z99.2 Dependence on renal dialysis; E11.51 Type 2 diabetes mellitus with diabetic peripheral angiopathy without gangrene; I73.9 Peripheral vascular disease, unspecified; R56.9 Unspecified convulsions; I50.9 Heart failure, unspecified; T17.900A Unspecified foreign body in respiratory tract, part unspecified causing asphyxiation, initial encounter | CPT/HCPCS: 99239 ==